=== PATIENT | male | born 1945 | race Caucasian/White ===

== ENCOUNTER 2023-04-13 11:10 | Emergency (ER) | payer MEDICARE, OTHER, SELFPAY ==
[2023-04-13 11:15] VITALS: BP 129/90; PULSE 74; RESP 18; TEMP 36.5; O2SAT 97; BMI 28.3
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
== END 2023-04-13 11:44 | disposition home or self-care (01) ==
PROVIDERS: Emergency Provider Emergency Medicine; PCP Family Medicine
DX: R21 Rash and other nonspecific skin eruption (principal); Z79.82 Long term (current) use of aspirin; Z79.899 Other long term (current) drug therapy; F17.210 Nicotine dependence, cigarettes, uncomplicated
CPT/HCPCS: 99283

== ENCOUNTER 2023-07-26 11:45 | Emergency (ER) | payer MEDICARE, OTHER, SELFPAY ==
[2023-07-26 11:51] VITALS: BP 120/91; PULSE 82; RESP 16; TEMP 36.5; O2SAT 99; BMI 29.5
--- OUTSIDE RECORDS SUMMARY | 2023-07-26 11:52 | XMS_ITS | CCD ---
Author Name Unknown Address [address] [place] [address] Organization [facility] Care Team Providers Care Emergency Medcl Emt Name Role Phone Stanley Emerson Unavailable Unavailable Unavailable STANLEY EMERSON Primary Care Physician Unavail able MD Stanley Emerson Primary Care Provider MD Taz Barnes Admit Provider MD Margarito Valentine Other Provider MD Janice Gonzalez Other Provider DO Bernabe Cr Attending Provider MD Margarito Valentine Attending Provider [phone] MD Margarito Valentine Admit Provider Celia Ramos Unavailable Margarito Valentine Unavailable [phone] MOMO Schwab Attending Provider MD Stanley Emerson Primary Care Provider MD Taz Barnes Admit Provider MD Margarito Valentine Other Provider MD Janice Gonzalez Other Provider DO Bernabe Cr Attending Provider MD Margarito Valentine Attending Provider [phone] MD Margarito Valentine Admit Provider [phone] MOMO Schwab Attending Provider Titijazmyne Carlene Unavailable HEMEYER ., DR PETERSON Primary Care Unavailable SAMUELS ., DR MONTALVO Admitting Unavailable SAMUELS ., DR MONTALVO Attending Unavailable SAMUELS ., DR MONTALVO Consulting Unavailable Le, Corky Consulting Unavailable HEMEYER ., DR PETERSON Primary Care Unavailable SAMUELS ., DR MONTALVO Admitting Unavailable SAMUELS ., DR MONTALVO Attending Unavailable SAMUELS ., DR MONTALVO Consulting Unavailable LOAN, JAZZY Consulting Unavailable SURY II, ARCADIO Consulting Unavailable HEMEYER ., DR PETERSON Primary Care Unavailable BAKHOUS, AZIZ Admitting Unavailable BAKHOUS, AZIZ Attending Unavailable BAKHOUS, AZIZ Consulting Unavailable HEMEYER ., DR PETERSON Primary Care Unavailable BAKHOUS, AZIZ Admitting Unavailable BAKHOUS, AZIZ Attending Unavailable BAKHOUS, AZIZ Consulting Unavailable HEMEYER ., DR PETERSON Primary Care Unavailable HEMEYER ., DR PETERSON Attending Unavailable HEMEYER ., DR PETERSON Admvandana Unavailable HEMEYER ., DR PETERSON Consulting Unavailable ZIEBER, DR LORENZO Hall Consulting Unavailable HEMEYER ., DR PETERSON Primary Care Unavailable VANDA ., MARILYN Admitting Unavailable VANDA ., MARILYN Attending Unavailable VANDA ., MARILYN Consulting Unavailable HEMEYER ., DR PETERSON Primary Care Unavailable HAY ., DR GALEANO Admitting Unavailable HAY ., DR GALEANO Attending Unavailable HAY ., DR GALEANO Consulting Unavailable HEMEYER ., DR PETERSON Primary Care Unavailable ZIEBER, DR LORENZO Hall Consulting Unavailable HAY ., DR GALEANO Admitting Unavailable HAY ., DR GALEANO Attending Unavailable HAY ., DR GALEANO Consulting Unavailable Stokes, Dr. Teo Poon Attending Araceli vailable Hemeyer, Dr. Stanley Mercado Primary Care Unava ilable Hemeyer, Dr. Stanley Mercado Primary Care Unava ilable Hemeyer, Dr. Stanley Mercado Primary Care Unava ilable Stokes, Dr. Teo Poon Attending Araceli vailable Stokes, Dr. Teo Poon Referring Araceli vailable Hemeyer, Dr. Stanley Mercado Primary Care Unava ilable Hemeyer, Dr. Stanley Mercado Primary Care Unava ilable Stokes, Dr. Teo Poon Referring Araceli vailable Stokes, Dr. Teo Poon Attending Araceli vailable Stokes, Dr. Teo Poon Attending Araceli vailable Hemeyer, Dr. Stanley Mercado Primary Care Elliot Emerson, Dr. Stanley Mercado Primary Care Elliot Stokes, Dr. Teo Poon Attending Araceli romy Stokes, Dr. Teo Poon Attending Araceli Emerson, Dr. Stanley Mercado Primary Care MD Stanley Little Primary Care Provider MD Celia Ramos Attending Provider MD Teo Stokes Referring Provider STANLEY EMERSON Attending Unavailable IDANIA, STANLEY Rich Attending Unavailable SAMUELS, KATIA R Referring Unavailable SAMUELS, Katia R Attending Unavailable SAMUELS, Katia R Attending Unavailable SAMUELS, Katia R Referring Unavailable SAMUELS, Katia R Admitting Unavailable SAMUELS, Katia R Attending Unavailable SAMUELS, Katia R Referring Unavailable SAMUELS, Katia R Admitting Unavailable SAMUELS, Katia R Attending Unavailable SAMUELS, Kaita R Admitting Unavailable SAMUELS, Katia R Attending Unavailable SAMUELS, Katia R Admitting Unavailable SAMUELS, Katia R Attending Unavailable SAMUELS, Katia R Attending Unavailable SAMUELS, Katia R Attending Unavailable SAMUELS, Katia R Attending Unavailable SAMUELS, Katia R Attending Unavailable SAMUELS, Katia R Attending Unavailable SAMUELS, Katia R Attending Unavailable SAMUELS, Katia R Attending Unavailable Stokes, Teo Referring Unavailable Bakhous, Celia Admitting Unavailable Bakhous, Celia Attending Unavailable Stanley Emerson Primary Care Unavailable Stanley Emerson Primary Care Unavailable Heather Schwab Admitting Unavailable Heather Schwab Attending Unavailable Stanley Emerson Primary Care Unavailable Margarito Valentine Admitting UnavailMargarito Lara Attending Unavailabl e Allergies Allergy Classification Reported Allergen(s) Allergy Type Date of Onset Reaction(s) Facility (1 source) No Known Medication Allergies; Translations: [No Known Medication Allergies] Propensity to adverse reactions (disorder) [facility] Repository Medications Current Medications Medication Drug Class(es) Dates Sig (Normalized) Sig (Original) 8 hr acetaminophen 650 mg extended release oral tablet (3 sources) take 2 tablets by mouth every eight hours Acetaminophen ER 650 MG 2 tablets as needed Orally every 8 hrs Active acetaminophen 325 mg / HYDROcodone bitartrate 7.5 mg oral tablet (2 sources) Opioid Agonist Start: 05-06-2023 take 1 tablet by mouth once, then take 1 tablet by mouth every hour [place] 325 mg-7.5 mg oral tablet 1 tab(s), Oral, Once, 1 tab(s), Refill(s) 0, Take 1 hour prior to procedure, [facility]/pharmacy #[id number], 187, cm, 03/11/23 13:44:00 EDT, Height/Length Dosing, 93, kg, 03/11/23 13:44:00 EDT, Weight Dosing Start Date: 05/06/23 Status: Ordered Albuterol (Eqv-ProAir HFA) 90 mcg/inh inhalation aerosol (12 sources) Start: 06-10-2022 Albuterol (Eqv-ProAir HFA) 90 mcg/inh inhalation aerosol Refill(s) 0 Start Date: 06/10/22 Status: Ordered amLODIPine 5 mg oral tablet (6 sources) Dihydropyridine Calcium Channel Alfredito Start: 06-10-2023 take 5 mg by mouth twice daily amlodipine 5 mg, Oral, BID, Refills(s) 0 Start Date: 06/10/23 Status: Ordered Start: 04-15-2023 take 1 tablet by charlene th every twelve hours Norvasc 5 MG 1 tablet Orally bid for 90 days Mar, Active Start: 04-15-2023 take 1 tablet by charlene th every twenty-four hours Norvasc 5 MG 1 tablet Orally Once a day for 90 days Mar, Active ferrous sulfate 325 mg oral tablet (4 sources) take 1 tablet by charlene th every twenty-four hours Ferrous Sulfate 325 (65 Fe) MG 1 tablet Orally once a day Active folic acid 1 mg oral tablet (14 sources) Start: 05-22-2022 folic acid 1 mg Tab Refills(s) 0 Start Date: 06/10/22 Status: Ordered Start: 05-22-2022 End: 06-21-2022 take 1000 ug by mouth once daily at bedtime Folic Acid Active 1000 MCG PO Daily at bedtime June 21, 2022 10:02am Metoprolol (20 sources) beta-Adrenergic Alfredito Start: 06-10-2022 Metopr olol tartrate 50 mg Tab Refills(s) 0 Start Date: 06/10/22 Status: Ordered Start: 05-16-2022 take 50 mg by mouth twice kellen y Metoprolol Tartrate Active 50 MG PO Twice daily May 16, 2022 12:00am Multivitamin preparation (17 sources) Start: 07-31-2022 multivitamin D aily, Refill(s) 0 Start Date: 07/31/22 Status: Ordered Multivitamin Act raji 24 hr oxybutynin chloride 10 mg extended release oral tablet (1 source) Cholinergic Muscarinic Antagonist Start: 06-11-2023 take 1 tablet by mouth once daily oxybutynin 10 mg ER Tab 10 mg = 1 tab(s), Oral, Daily, # 14 tab(s), Refills(s) 0, Pharmacy: [facility]/pharmacy #[id number], 187, cm, 06/10/23 13:43:00 EST, Height/Length Dosing, 93, kg, 03/11/23 13:44:00 EDT, Weight Dosing Start Date: 06/11/23 Status: Ordered predniSONE 10 mg oral tablet (3 sources) predniSONE 10 MG as directed Orally take 4 tablets daily x3 days, take 3 tablets for 3 days, 2 tablets for 3 days, 1 tablet for 3 days Active simvastatin 20 mg oral tablet (20 sources) HMG-CoA Reductase Inhibitor Start: 05-16-2022 simvastatin 20 mg Tab Refills(s) 0 Start Date: 06/10/22 Status: Ordered vitamin b12 1 mg oral capsule (13 sources) Vitamin B12 Start: 05-22-2022 End: 06-21-2022 take 1000 ug by mouth once daily at bedtime Cyanocobalamin (Vitamin B-12) Active 1000 MCG PO Daily at bedtime June 21, 2022 10:02am Cyanocobalamin 1 000 MCG as directed Orally Active take 1 tablet by mouth once kellen y B-12 1000 MCG Oral Tablet TAKE 1 TABLET DAILY DIRECTED. Quantity: 0 Refills: 0 Ordered: 03-Jun-2022 DO Active Completed/Discontinued Medications Medication Drug Class(es) Dates Sig (Normalized) Sig (Original) [id number] 200 actuat albuterol 0.09 mg/actuat metered dose inhaler (16 sources) beta2-Adrenergic Agonist Start: 06-03-2022 Albuterol Sulfate HFA 108 (90 Base) MCG/ACT Inhalation Aerosol Solution Quantity: 54 Refills: 0 Ordered: 03-Jun-2022 DO Start : 03-Jun-2022 Active Start: 05-16-2022 take 1 puff(s) by in halation three times daily Albuterol Sulfate Active 2 PUFF INHALATION Three times daily May 16, 2022 12:00am take 2 puff(s) by in halation every four hours as needed Albuterol Sulfate HFA 108 (90 Base) MCG/ACT 2 puffs as needed Inhalation every 4 hrs Active take 2 puff(s) by in halation every four hours as needed Albuterol Sulfate HFA 108 (90 Base) MCG/ACT 2 puffs as needed Inhalation every 4 hrs Active take 2 puff(s) by in halation every four hours as needed Albuterol Sulfate HFA 108 (90 Base) MCG/ACT Inhalation Aerosol Solution INHALE 2 PUFFS EVERY 4 HOURS NEEDED Quantity: 1 Refills: 0 Ordered: 22-Jan-2023 DO Active aspirin 81 mg delayed release oral tablet (9 sources) Platelet Aggregation Inhibitor, Nonsteroidal Anti-inflammatory Drug Start: 01-22-2023 take 1 tablet by mouth once daily Aspirin 81 MG Oral Tablet Delayed Release TAKE 1 TABLET DAILY. Quantity: 90 Refills: 3 Ordered: 22-Jan-2023 Teo Stokes MD Start : 22-Jan-2023 Active Start: 05-16-2022 End: 06-21-2022 take 81 mg by mouth once daily Aspirin Discontinued 81 MG PO Daily May 16, 2022 12:00am June 21, 2022 10:01am ciprofloxacin 250 mg oral tablet (6 sources) Quinolone Antimicrobial Start: 12-03-2022 take 1 tablet by mouth once daily Cipro 250 mg Tab 250 mg = 1 tab(s), Oral, Daily, Take 1 tablet the day before the procedure and 1 tablet after the procedure, # 6 tab(s), Refills(s) 0, Pharmacy: [facility]/pharmacy #[id number], 187, cm, 09/18/22 14:39:00 EDT, Height/Length Dosing, 93, kg, 09/18/22 14:39:00 EDT, Weight Dosing Start Date: 12/03/22 Status: Ordered Start: 07-25-2022 take 1 tablet by charlene th once daily Cipro 250 mg Tab 250 mg = 1 tab(s), Oral, Daily, Take 1 tablet the day before the procedure and 1 tablet after the procedure, # 2 tab(s), Refills(s) 0, Pharmacy: [facility]/pharmacy #[id number], 187, cm, 06/11/22 9:11:00 EST, Height/Length Dosing, 93.5, kg, 06/11/22 9:11:00 EST, W... Start Date: 07/25/22 Status: Ordered Multi Vitamin Oral Tablet (1 source) take 1 tablet by charlene th once daily Multi Vitamin Oral Tablet TAKE 1 TABLET DAILY. Quantity: 0 Refills: 0 Ordered: 22-Jan-2023 DO Active Problems Active Problems Problem Classification Problem Date Documented Da te Episodic/Chronic Aortic; peripheral; and visceral artery aneurysms (20 sources) Abdominal aortic aneurysm; Translations: [Abdominal aneurysm without mention of rupture] Onset: 05-16-2022 Chronic Calculus of urinary tract (18 sources) Urinary bladder stone; Translations: [Calculus in bladder] Onset: 06-11-2022 Episodic Cancer of bladder (13 sources) Malignant tumor of urinary bladder; Translations: [Malignant neoplasm of bladder, unspecified] Onset: 09-18-2022 Chronic Cancer of bladder (3 sources) History of malignant neoplasm of bladder; Translations: [Personal history of malignant neoplasm of bladder] Onset: 12-10-2022 Episodic Cancer; other and unspecified primary (8 sources) H/O: malignant neoplasm 12-10-2022 Episodic Chronic kidney disease (10 sources) Chronic kidney disease stage 3B ; Translations: [Chronic kidney disease, stage 3b] Onset: 09-04-2022 Chronic Chronic kidney disease (4 sources) Chronic kidney disease; Translations: [CHRONIC KIDNEY DISEASE STAGE 3B] Onset: 09-10-2022 Chronic obstructive pulmonary disease and bronchiectasis (11 sources) Pulmonary emphysema; Translations: [Simple chronic bronchitis] Onset: 09-23-2022 09-11-2022 Chronic Complication of device; implant or graft (1 source) Other mechanical complication of indwelling urethral catheter, initial encounter; Translations: [OTH MECH CMP INDWELL URETH CATH INT] Onset: 09-16-2022 Episodic Delirium, dementia, and amnestic and other cognitive disorders (20 sources) Dementia; Translations: [Unspecified dementia without behavioral disturbance] Onset: 06-11-2022 Chronic Disorders of lipid metabolism (20 sources) Dyslipidemia; Translations: [Other and unspecified hyperlipidemia] Onset: 09-23-2022 Chronic Essential hypertension (19 sources) Hypertensive disorder; Translations: [Unspecified essential hypertension] Onset: 09-23-2022 09-11-2022 Chronic Genitourinary symptoms and ill-defined conditions (20 sources) Retention of urine; Translations: [Retention of urine, unspecified] Onset: 06-10-2022 Episodic Hyperplasia of prostate (12 sources) Benign prostatic hypertrophy with outflow obstruction; Translations: [Benign prostatic hyperplasia with lower urinary tract symptoms] Onset: 12-10-2022 Chronic Hypertension with complications and secondary hypertension (1 source) Hypertensive chronic kidney disease with stage 1 through stage 4 chronic kidney disease, or unspecified chronic kidney disease; Translations: [HTN CKD W/STAGE 1-4 CKD/UNS CKD] Onset: 09-08-2022 Chronic Late effects of cerebrovascular disease (1 source) Other sequelae following unspecified cerebrovascular disease; Translations: [OTH SEQUELAE UNS CEREBROVASCULAR DZ] Onset: 09-23-2022 Chronic Neoplasms of unspecified nature or uncertain behavior (4 sources) Neoplasm of unspecified behavior of bladder; Translations: [NEOPLASM UNS BEHAVIOR OF BLADDER] Onset: 09-08-2022 Episodic Nutritional deficiencies (19 sources) Cobalamin deficiency; Translations: [Deficiency of other specified B group vitamins] 05-22-2022 Episodic Other aftercare (1 source) Other prison (current) drug therapy; Translations: [OTH [facility] CURRENT DRUG THERAPY] Onset: 09-23-2022 Episodic Other aftercare (1 source) detention (current) use of anticoagulants; Translations: [CONSTRUCTION REPRESENTATIVE CURRNT USE ANTICOAGULANTS] Onset: 09-08-2022 Episodic Other and ill-defined cerebrovascular disease (12 sources) Cerebral ischemia Onset: 05-16-2022 06-10-2022 Chronic Other circulatory disease (1 source) Personal history of other diseases of the circulatory system Episodic Other circulatory disease (1 source) Personal history of transient ischemic attack (TIA), and cerebral infarction without residual deficits; Translations: [PERS HX TIA AND CI NO RESID DEFICIT] Onset: 09-08-2022 Episodic Other diseases of bladder and urethra (2 sources) Disorder of bladder; Translations: [Other specified disorders of bladder] Onset: 06-10-2022 Chronic Other diseases of bladder and urethra (17 sources) Mass of urinary bladder; Translations: [Other specified disorders of bladder] 06-10-2022 Chronic Other diseases of bladder and urethra (5 sources) Other specified disorders of bladder; Translations: [Other specified disorders of bladder] Onset: 07-24-2022 05-22-2022 Chronic Other diseases of bladder and urethra (11 sources) Lesion of bladder 07-31-2022 Chronic Other diseases of bladder and urethra (1 source) Diverticulum of bladder; Translations: [DIVERTICULUM OF BLADDER] Onset: 09-23-2022 Chronic Other diseases of bladder and urethra (1 source) Bladder disorder, unspecified; Translations: [BLADDER DISORDER UNSPECIFIED] Onset: 09-08-2022 Chronic Other diseases of kidney and ureters (14 sources) Hydroureter; Translations: [Hydroureter] Onset: 06-11-2022 Episodic Other diseases of kidney and ureters (2 sources) Disorder of kidney and/or ureter; Translations: [Disorder of kidney and ureter, unspecified] Onset: 06-11-2022 Episodic Other diseases of kidney and ureters (12 sources) Hydronephrosis 06-10-2022 Episodic Other diseases of kidney and ureters (12 sources) Kidney lesion 06-11-2022 Episodic Other diseases of kidney and ureters (5 sources) Bilateral hydronephrosis ; Translations: [Unspecified hydronephrosis] 05-22-2022 Episodic Other diseases of kidney and ureters (1 source) Urinary tract obstruction; Translations: [Other obstructive and reflux uropathy] Onset: 06-10-2023 Episodic Other diseases of veins and lymphatics (1 source) Venous insufficiency (chronic) (peripheral); Translations: [VENOUS INSUFF CHRONIC PERIPHERAL] Onset: 09-23-2022 Episodic Other gastrointestinal disorders (5 sources) Diarrhea; Translations: [Diarrhea, unspecified] 05-16-2022 Episodic Other nervous system disorders (5 sources) 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; Translations: [Circadian rhythm sleep disorder, unspecified type] 05-20-2022 Chronic Other nervous system disorders (5 sources) Metabolic encephalopathy; Translations: [Metabolic encephalopathy] 05-16-2022 Chronic Other nervous system disorders (4 sources) Metabolic encephalopathy; Translations: [Metabolic encephalopathy] 05-22-2022 Chronic Other nervous system disorders (4 sources) Circadian rhythm sleep disorder, unspecified type; Translations: [Disruption of 24 hour sleep wake cycle, unspecified] 05-22-2022 Chronic Other nervous system disorders (1 source) Unspecified disturbances of skin sensation; Translations: [UNS DISTURBANCES OF SKIN SENSATION] Onset: 09-23-2022 Episodic Other nutritional; endocrine; and metabolic disorders (1 source) Other obesity due to excess calories; Translations: [OTHER OBESITY D/T EXCESS CALORIES] Onset: 09-23-2022 Chronic Other nutritional; endocrine; and metabolic disorders (3 sources) Overweight in adulthood with body mass index of 25 or more but less than 30; Translations: [Overweight] Episodic Other nutritional; endocrine; and metabolic disorders (1 source) Body mass index (BMI) 26.0-26.9, adult; Translations: [BODY MASS INDEX BMI 26.0-26.9 ADULT] Onset: 09-23-2022 Episodic Residual codes; unclassified (5 sources) Tobacco user; Translations: [Tobacco use] 05-22-2022 Episodic Residual codes; unclassified (4 sources) Tobacco use; Translations: [Tobacco use disorder] 05-22-2022 Episodic Residual codes; unclassified (2 sources) Other specified postprocedural states; Translations: [OTH SPECIFIED POSTPROCEDURAL STATES] Onset: 09-16-2022 Episodic Screening and history of mental health and substance abuse codes (3 sources) Ex-smoker; Translations: [Personal history of tobacco use] Onset: 09-23-2022 Episodic Comment on above: 05/17/23 quit; Substance-related disorders (2 sources) Nicotine dependence, cigarettes, uncomplicated; Translations: [Smoker] Onset: 09-08-2022 Chronic Comment on above: 1/2 dozen cigarettes ; Transient cerebral ischemia (12 sources) Transient cerebral ischemia; Translations: [Unspecified transient cerebral ischemia] 05-16-2022 Chronic Unclassified (1 source) ABDOMINAL AA W/O RUPTURE UNSPCIFIED; Translations: [ABDOMINAL AA W/O RUPTURE UNSPCIFIED] Onset: 09-23-2022 Unclassified (1 source) CONTACT W/AND (SUSP) EXPOS COVID-19; Translations: [CONTACT W/AND (SUSP) EXPOS COVID-19] Onset: 05-22-2022 Unclassified (1 source) Abdominal aortic aneurysm, without rupture, unspecified; Translations: [Abdominal aortic aneurysm, without rupture, unspecified] Onset: 04-08-2023 Unclassified (1 source) Abdominal aortic aneurysm, without rupture, unspecified; Translations: [Abdominal aortic aneurysm, without rupture, unspecified] Onset: 08-16-2022 Urinary tract infections (10 sources) Urinary tract infectious disease; Translations: [Urinary tract infection, site not specified] Onset: 09-16-2022 05-16-2022 Episodic Viral infection (4 sources) COVID-19; Translations: [COVID-19] Onset: 01-04-2022 Past or Other Problems Problem Classification Problem Date Documented Da te Episodic/Chronic Acute and unspecified renal failure (20 sources) Acute renal failure syndrome; Translations: [Acute kidney failure, unspecified] Onset: 05-16-2022 Episodic Fluid and electrolyte disorders (20 sources) Hyperkalemia; Translations: [Metabolic acidosis] Onset: 05-16-2022 06-10-2022 Episodic Malaise and fatigue (4 sources) Other fatigue; Translations: [OTHER FATIGUE] Onset: 05-15-2022 Episodic Nausea and vomiting (1 source) Vomiting, unspecified; Translations: [VOMITING UNSPECIFIED] Onset: 05-23-2022 Episodic Other aftercare (1 source) detention (current) use of aspirin; Translations: [CONSTRUCTION REPRESENTATIVE 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] Onset: 05-22-2022 Episodic Other diseases of kidney and ureters (8 sources) Unspecified hydronephrosis; Translations: [Hydronephrosis] Onset: 09-10-2022 05-22-2022 Episodic Other gastrointestinal disorders (5 sources) Diarrhea, unspecified; Translations: [Diarrhea] Onset: 05-23-2022 05-22-2022 Episodic Other nutritional; endocrine; and metabolic disorders (1 source) Anorexia; Translations: [ANOREXIA] Onset: 05-23-2022 Episodic Other nutritional; endocrine; and metabolic disorders (1 source) Abnormal weight loss; Translations: [ABNORMAL WEIGHT LOSS] Onset: 05-23-2022 Episodic Other screening for suspected conditions (not mental disorders or infectious disease) (3 sources) Other specified abnormal findings of blood chemistry; Translations: [OTH SPEC ABNORMAL FINDINGS BLD CHEM] Onset: 05-16-2022 Episodic Residual codes; unclassified (1 source) Chills (without fever); Translations: [CHILLS WITHOUT FEVER] Onset: 05-23-2022 Episodic Unclassified (3 sources) Abdominal aortic aneurysm (AAA) without rupture, unspecified part I71.40 Unclassified (3 sources) Infrarenal abdominal aortic aneurysm (AAA) without rupture I71.43 Results Test Name Value Interpretation Reference Range Facility Physician Orderon 07-04-2023 Physician Order [id number] Normal [facility] Patient Educationon 06-30-19 Patient Education Urology Acute Urinary Retention, Male Acute urinary retention is a condition in which a person is unable to pass urine or can only pass a little urine. This condition can happen suddenly and last for a short time. If left untreated, it can become long-term (chronic) and result in kidney damage or other serious complications. What are the causes? This condition may be caused by: ? Obstruction or narrowing of the tube that drains the bladder (urethra). This may be caused by surgery, problems with nearby organs, or injury to the bladder or urethra. ? Problems with the nerves in the bladder. ? Tumors in the area of the pelvis, bladder, or urethra. ? Certain medicines. ? Bladder or urinary tract infection. ? Constipation. What increases the risk? This condition is more likely to develop in older men. As men age, their prostate may become larger and may start to press or squeeze on the bladder or the urethra. Other chronic health conditions can increase the risk of acute urinary retention. These include: ? Diseases such as multiple sclerosis. ? Spinal cord injuries. ? Diabetes. ? Degenerative cognitive conditions, such as delirium or dementia. ? Psychological conditions. A man may hold his urine due to trauma or because he does not want to use the bathroom. What are the signs or symptoms? Symptoms of this condition include: ? Trouble urinating. ? Pain in the lower abdomen. How is this diagnosed? This condition is diagnosed based on a physical exam and your medical history. You may also have other tests, including: ? An ultrasound of the bladder or kidneys or both. ? Blood tests. ? A urine analysis. ? Additional tests may be needed, such as a CT scan, MRI, and kidney or bladder function tests. How is this treated? Treatment for this condition may include: ? Medicines. ? Placing a thin, sterile tube (catheter) into the bladder to drain urine out of the body. This is called an indwelling urinary catheter. After it is inserted, the catheter is held in place with a small balloon that is filled with sterile water. Urine drains from the catheter into a collection bag outside of the body. ? Behavioral therapy. ? Treatment for other conditions. If needed, you may be treated in the hospital for kidney function problems or to manage other complications. Follow these instructions at home: Medicines ? Take lylg-xag-lahimxb and prescription medicines only as told by your health care provider. Avoid certain medicines, such as decongestants, antihistamines, and some prescription medicines. Do not take any medicine unless your health care provider approves. ? If you were prescribed an antibiotic medicine, take it as told by your health care provider. Do not stop using the antibiotic even if you start to feel better. General instructions ? Do not use any products that contain nicotine or tobacco. These products include cigarettes, chewing tobacco, and vaping devices, such as e-cigarettes. If you need help quitting, ask your health care provider. ? Drink enough fluid to keep your urine pale yellow. ? If you have an indwelling urinary catheter, follow the instructions from your health care provider. ? Monitor any changes in your symptoms. Tell your health care provider about any changes. ? If instructed, monitor your blood pressure at home. Report changes as told by your health care provider. ? Keep all follow-up visits. This is important. Contact a health care provider if: ? You have uncomfortable bladder contractions that you cannot control (spasms). ? You leak urine with the spasms. Get help right away if: ? You have chills or a fever. ? You have blood in your urine. ? You have a catheter and the following happens: ? Your catheter stops draining urine. ? Your catheter falls out. Summary ? Acute urinary retention is a condition in which a person is unable to pass urine or can only pass a little urine. If left untreated, this condition can result in kidney damage or other serious complications. ? An enlarged prostate may cause this condition. As men age, their prostate gland may become larger and may press or squeeze on the bladder or the urethra. ? Treatment for this condition may include medicines and placement of an indwelling urinary catheter. ? Monitor any changes in your symptoms. Tell your health care provider about any changes. This information is not intended to replace advice given to you by your health care provider. Make sure you discuss any questions you have with your health care provider. Document Revised: 01/31/2021 Document Reviewed: 01/31/2021 e27 Patient Education ? 2022 [employer]. Carmella Tanner [facility] Urology Office/Clinic Noteon 06-30-2023 Urology Office/Clinic Note Chief Complaint f/u to Rejalen HPI Staff F/u to Rezucésar done 06/10/23. Dx: hx of bladder cancer, urinary retention, BPH with urinary obstruction and dementia. Pt has an indwelling cath at this time. He had his catheter removed on 06/16/23 and after several hours came back to the office unable to urinate and PVR was 792ml so catheter was replaced. Pt does wish to do another voiding trial but would like to have the catheter removed on another day first thing in the morning so that if he has problems and has to have it replaced it can be done in office and he does not have to go to the ED. History of Present Illness Tests reviewed: reviewed FISH/cytology I have reviewed the previous health record information and history for this patient from Dr. Samuels. I have reviewed and verified the staff HPI to be accurate for this encounter. Review of Systems PHQ Score Initial Depression Screen Score: 0 SCORE ROS - Provider Constitutional: denies weight loss, denies hot flashes. Eyes: denies eye problems. Gastrointestinal: denies nausea, denies vomiting. Cardiovascular: denies chest pain or angina. Integumentary: no dryness Musculoskeletal: denies musculoskeletal symptoms. ENMT: denies otolaryngeal symptoms. Respiratory: no shortness of breath. Heme/Lymph: denies easy bleeding tendency, denies easy bruising tendency. Psychiatric: no confusion, no anxiety. Genitourinary: See HPI. Physical Exam Vitals & Measurements HR: 70(Peripheral) RR: 16 BP: 109/77 HT: 74 in HT: 187 cm WT: 93 kg WT: 204.6 lb BMI: 26.59 General Appearance: alert, no distress, well nourished, well developed male. Genitourinary: normal scrotum, normal testes, normal urethra, normal epididymis, normal vas deferens/spermatic cord. Flank Pain: none. Bladder: nonpalpable. Assessment/Plan Pt here today with his . 1. History of bladder cancer (Z85.51: Personal history of malignant neoplasm of bladder) CT AP wo con 05/16/22 - 2.3 x 2.3 x 1.9 cm hyperdense mass adjacent to the left lateral anterior wall and roof of the bladder. Cysto 07/31/22 - Left back wall there is a 2-3 cm papillary TCC lesion over a tic. S/P First TURBT/extraction of 2 bladder calculi 09/12/22 - Path shows noninvasive papillary urothelial carcinoma, low grade. Invasion is not recognized. A small fragment of detrusor muscle is present in the specimen. Cysto 12/10/22 - no bladder tumor recurrence Most recent Cysto/FISH/Cytol 06/10/23 - neg 2. Urinary retention (R33.9: Retention of urine, unspecified) [facility] ER on 09/15/22 due to catheter clogged. Pt was diagnosed w/ UTI and treated w/ Cipro 500 mg BID for x 7 days. Attempted urocuff, pt was unable to void, PVR 348 cc, cath placed 10/04/22. S/p Rezum 06/10/23. Catheter removal IO 06/16/23, came back to the office several hours later due to being unable to urinate and PVR was 792mL so catheter was replaced. Pt still has catheter in place. Does not want it removed today. Discussed pt to get catheter removed tomorrow IO and if unable to void, pt/ to learn CIC. 3. BPH with urinary obstruction (N40.1: Benign prostatic hyperplasia with lower urinary tract symptoms) Cysto 07/31/22 - Trilobar obstruction. Severe trabeculation, deep diverticuli diffusely. Not currently taking any BPH meds. No sample provided for UA today, pt has catheter. Follow-up With When Contact Information ARLENE CASILLAS, Katia Hall, [facility] [address], [place] [address]- [phone] Additional Instructions: 1 day for catheter removal Patient Education Acute Urinary Retention, Male I, Apple Escoto, personally scribed for Dr. Samuels on 06/30/2023 14:30:01. . Documentation recorded by the scribe, Apple Escoto, accurately reflects the services(s) I performed and decisions made by me. Authenticated by Dr. Samuels on 06/30/2023 14:32:21. Problem List/Past Medical History Ongoing Abdominal aortic aneurysm Acute kidney failure Bladder cancer Bladder mass Bladder stones BPH with urinary obstruction COPD with emphysema Dementia History of bladder cancer Hydronephrosis Hydroureter Hyperkalemia Hyperlipidemia Hypertension Lesion of bladder Renal lesion Transient cerebral ischemic attack Urinary retention Historical No qualifying data Procedure/Surgical History Cystoscope (03/11/2023), TURBT - Transurethral resection of bladder tumor (09/12/2022), Cystoscopy (07/31/2022). Medications Albuterol (Eqv-ProAir HFA) 90 mcg/inh inhalation aerosol amlodipine, 5 mg, Oral, BID Metoprolol tartrate 50 mg Tab multivitamin, Daily oxybutynin 10 mg ER Tab, 10 mg= 1 tab(s), Oral, Daily, Not taking: Pt stopped taking due to having hallucinations with it. simvastatin 20 mg Tab Allergies No Known Medication Allergies Social History Tobacco 10 or more cigarettes (1/2 pack or more)/day in last 30 days Tobacco Use:. Never Smokeless Tobacco Use:. Cigarettes, (more content not included)... Normal [facility] Comment on above: Result Comment: Elec tronically Signed By: Katia SAMUELS MD\.br\Date and Time Signed: 06/30/23 14:32 EST\.br\Electronically Co-Signed By: Apple Escoto\.br\Date and Time Co-Signed: 06/30/23 14:30 EST [facility] Fish and Urine Cyt o ([facility])on 06-26-2023 [facility] Revision Information Invalid Interpretation Code [facility] Comment on above: Result Comment: Brayan ection Reason -[ Fredi Stephen, 06/26/23 - 10:32 ] Corrected report issued to update PMS/PWS. The diagnosis remains unchanged. Correction Notes - Performed By: #### 1 [id number] ####[facility] [id number] [place] [address] Ambulatory Visit Summaryon 0 06-16-2023 Ambulatory Visit Summary ALEX ANDERSON :1945 Visit Date:06/16/2023 Ambulatory Visit Instructions Your Diagnosis BPH with urinary obstruction Your Care Team Attending Physician - ARLENE CASILLAS, Katia Hall Primary Care Physician - IDANIA CASILLAS, STANLEY Rich This Is Your Medications List acetaminophen-hydrocodone ([place] 325 mg-7.5 mg oral tablet) albuterol (Albuterol (Eqv-ProAir HFA) 90 mcg/inh inhalation aerosol) amlodipine metoprolol (Metoprolol tartrate 50 mg Tab) multivitamin oxybutynin (oxybutynin 10 mg ER Tab) simvastatin (simvastatin 20 mg Tab) Procedures Performed Cystoscope (03/11/2023), TURBT - Transurethral resection of bladder tumor (09/12/2022), Cystoscopy (07/31/2022). What to do next Scheduled Follow-Up Appointments Friday 1:30 PM EST With: ARLENE CASILLAS, Katia Hall Where: [facility] Reminderson 06-12-2023 Reminders - From: Dana Rivas To: [facility] - Recalls Arlene; Sent: 09/18/2022 15:49:30 EDT Show up: 01/24/2023 15:49:00 EDT Subject: Cysto/FISH/cytol Due Date/Time: 02/10/2023 15:49:00 EDT Reminder/Recall Patient needs scheduled for 3 mo Cysto/FISH/cytol (bt ck) in Feb 2023 Patient sched for 03/11/23 in [facility]. Pt will be due in May 2023.LG Patient had cysto/Rezum on 06/10/23. He will be due in August 2023.LG [facility] Consent for Procedure/Surger yon 06-10-2023 Consent for Procedure/Surgery [id number]#[id number] [facility] Consent for Treatmenton 05-26 Consent for Treatment [id number]#1.00TIFF [facility] IntraOperative Documentson 0 06-10-2023 IntraOperative Documents [id number] Normal [facility] Main OR Intraoperative Recor don 06-10-2023 Main OR Intraoperative Record IntraOp Document Type FTURO Summary Primary Physician: Katia SAMUELS MD Finalized Date/Time: 06/10/23 15:18:46 Pt. Name: ANDERSONALEX./Sex: 1945 Male Med Rec #: [id number] Physician: Katia SAMUELS MD Financial #: [id number] Pt. Type: O Room/Bed: / Admit/Disch: 06/10/23 12:50:19 - Institution: Case Times FTURO Entry 1 Patient Times In Room 06/10/23 14:32:00 Out Room 06/10/23 15:13:00 Procedure Times Start 06/10/23 14:40:00 Stop 06/10/23 15:07:00 Anesthesia Times Last Modified By: Clifford CHAN, KATEOR, Gayatri 06/10/23 15:07:12 Case Attendance FTURO Entry 1 Entry 2 Entry 3 Case Attendee Katia SAMUELS MD RN, CNOR, Kathleen Lai Role Performed Surgeon - Primary Conservation Enforcement Officer - Primary Scrub - Primary Time In 06/10/23 14:32:00 06/10/23 14:32:00 06/10/23 14:32:00 Time Out 06/10/23 15:13:00 06/10/23 15:13:00 06/10/23 15:13:00 Procedure CYSTOSCOPY LOCAL CYSTOSCOPY LOCAL CYSTOSCOPY LOCAL REZUM(.) REZUM(.) REZUM(.) Daisy piña bag sorter in room orienting Last Modified By: Clifford RN, CNOR, Clifford RN, CNOR, Clifford RN, KATEOR, Gayatri 06/10/23 Gayatri 06/10/23 Gayatri 06/10/23 15:07:13 15:07:13 15:07:13 Surgical Procedures FTURO Entry 1 Procedure Description Procedure CYSTOSCOPY LOCAL REZUM Modifiers . Surgeon Description cysto, REZUM treatment x 12 Primary Procedure Yes Primary Surgeon Katia SAMUELS MD Start 06/10/23 14:40:00 Stop 06/10/23 15:07:00 Anesthesia Type Local Surgical Service Urology Wound Class 2 - Clean-Contaminated Last Modified By: WOLFGANG Horton RN, Ruthann 06/10/23 15:07:15 General Comments: cath inserted 18fr coude General Case Data FTURO Pre-Care Text: Classifies surgical wound, implements aseptic technique, initiates traffic control Entry 1 Case Information OR URO 1 FT Case Level None Wound Class 2 - Clean-Contaminated Specialty Urology Preop Diagnosis HISTORY OF BLADDER Postop Same As Preop Yes CANCER, BPH WITH OBSTRUCTION Postop Diagnosis HISTORY OF BLADDER Outcomes Met? Yes CANCER, BPH WITH OBSTRUCTION Last Modified By: WOLFGANG Horton RN, Ruthann 06/10/23 13:11:24 Post-Care Text: The patient is free from signs and symptoms of infection EU IntraOp - FTURO Pre-Care Text: Implements protective measures prior to operative or invasive procedure, confirms identity before the operative or invasive procedure, verifies operative procedure, surgical site, and laterality Entry 1 EU Perioperative Protocols Procedure(s) CYSTOSCOPY LOCAL Patient Identity Birthday, ID Band REZUM(.) Verified (select at Check, Patient least 2): Participation Consents / H and P HandP, Surgery/Procedure Operative Site N/A Verified Consent Marking Verified Surgical Site Yes Laterality Verified n/a Verified Procedure Verified Yes Correct Patient Yes Position Verified Availability Equipment, Medication Time Out Katia SAMUELS MD, Verified (If Participants Clifford CHAN, KATEOR, Applicable) Ming Mendieta Jessica D Time Out Complete 06/10/23 14:32:00 Allergies Reviewed? Yes Allergies Reviewed Self/Patient With Body Position Low Lithotomy Prep Area penis Prep Agents Betadine Solution Skin. Condition Unable to Visualize Additional FISH Specimens Comment came from zapien Specimens Collected Vitals - EU Blood Pressure 119/79 Pulse 72 bpm Respirations 18 br/min SPO2 92 % EBL 0 IandO - EU Total Intake 0 mL Total Output 0 mL Outcomes Met? Yes Last Modified By: WOLFGANG Horton RN, Ruthann 06/10/23 14:52:38 Post-Care Text: The patient is free from signs and symptoms of injury caused by extraneous objects Sign Out FTURO Entry 1 Before Patient Leaves OR Nurse verbally Yes Nurse verbally n/a confirms with the confirms with the team the name of team that the procedure(s) instrument, sponge, recorded and needle counts are correct (or N/A) Nurse verbally Yes Nurse verbally n/a confirms with the confirms with the team how the team whether there specimen is labeled are any equipment (including patient problems to be name), if applicable addressed Sign Out Complete 06/10/23 15:10:00 Last Modified By: WOLFGANG Horton RN, Ruthann 06/10/23 15:07:43 Case Comments Finalized By: WOLFGANG Horton RN, Ruthann Document Signatures Signed By: WOLFGANG Horton RN, Ruthann 06/10/23 15:17 WOLFGANG Horton RN, Ruthann 06/10/23 15:07 WOLFGANG Horton RN, Ruthann 06/10/23 15:18 Normal [facility] Main OR Preoperative Recordo n 06-10-2023 Main OR Preoperative Record Holding Area Document Type FTURO Summary Primary Physician: Katia SAMUELS MD Finalized Date/Time: 06/10/23 14:49:26 Pt. Name: ALEX ANDERSON/Sex: 1945 Male Med Rec #: [id number] Physician: Katia SAMUELS MD Financial #: [id number] Pt. Type: O Room/Bed: / Admit/Disch: 06/10/23 12:50:19 - Institution: Case Times Holding FTURO Pre-Care Text: Verifies consent for planned procedure, identifies individual values and wishes concerning care, includes family members in perioperative teaching Secures patient's records' belongings, and valuables, maintains patient's dignity and privacy, and maintains patient confidentiality Entry 1 In Holding 06/10/23 13:39:00 Outcomes Met? Yes Last Modified By: Dayanara Neal RN 06/10/23 13:39:14 Post-Care Text: The patient participates in decisions affecting his or her perioperative plan of care The patient's right to privacy is maintained Surgery Checklist FTURO Entry 1 Patient Birthday, ID Band Procedure History and Physical, Identification: Check, Patient Verification: Surgical Consent, With Participation Patient NPO after Midnight: n/a Personal Items: Cataract Lens Implant, Glasses Personal Items GLASSES; BILATERAL Limitations: UP AD JOSIAH. PT [place] Comment: CATARACT LENS IMPLANTS Complaints of Pain: No Pain Comment: 0/10 Skin Integrity Dry, Warm Vitals - EU Blood Pressure 119/79 Pulse 72 bpm Respirations 16 br/min SPO2 92 % Additional None RN Reviewed Yes Specimens Collected Last Modified By: Dayanara Neal RN 06/10/23 13:41:12 Finalized By: WOLFGANG Horton RN, Ruthann Document Signatures Signed By: Dayanara Neal RN 06/10/23 13:41 WOLFGANG Horton RN, Ruthann 06/10/23 14:49 Normal [facility] Operative Reporton Operative Report Patient: MELISSA ANDERSON Age: 77 years Sex: Male : 1945 Associated Diagnoses: None Author: Katia SAMUELS MD Procedure Operative Information Details: Date/ Time: 06/10/2023 15:21:00. Pre-Op Dx: BPH w/ LUTS - N40.1, Urinary Retention - R33.8. Post-Op Dx: Same. Anesthesia Type: Local. Procedure: REZUM ablation of the prostate. Complications: None. Risks/Benefits/Informed Consent: Surgical risks, benefits, details of the procedure have been explained to the patient, Full informed consent has been obtained. Indications: The patient has BPH with LUTS and presents for the REZUM trans-urethral water vapor ablation of the prostate, He understands the risks, benefits, details of this procedure including but not limited to bleeding, infection, continued difficulties urinating, blood in the semen, pain during urination, increased urinary frequency, Despite these risks, among others, he wishes to proceed. Intraoperative Information Prepped: The patient is brought back to the operative suite, The patient is placed in the supine position, 10 cc of 2% viscous Xylocaine jelly prior to the catheterization, The bladder is catheterized with a 16 Fr straight catheter, 60 cc of 1% xylocaine solution is instilled followed by 10 cc of 2% viscous Xylocaine jelly, After waiting approximately 20 minutes, he is positioned in the modified dorso-lithotomy position and prepped in the usual fashion, The 30-degree cystoscope lens is placed, The anterior urethra, membranous urethra, and prostatic urethra is visualized. Procedure: The bladder demonstrates no tumor or stones, 15 targeted treatments were delivered to the prostate, staying at least 1 cm from the bladder neck, Each location is treated for 9 seconds, per protocol, 12 treatments were given into the lateral lobes by 1 cm, 3 treatments administered to the median lobe, The bladder is again inspected and is free of injury and is clear of blood clots, A Zapien catheter is placed, the balloon inflated, and leg bag attached. Specimens Removed: None. Devices Implanted: None. Postoperative Information Discharge: The patient tolerates the procedure well and is discharged home in satisfactory condition, Discharge instructions are provided. Normal [facility] Comment on above: Result Comment: Elec tronically Signed By: Katia SAMUELS MD.br\Date and Time Signed: 06/10/23 15:21 EST Operative Report Patient: MELISSA ANDERSON Age: 77 years Sex: Male : 1945 Associated Diagnoses: None Author: Katia SAMUELS MD Procedure Operative Information Details: Date/ Time: 06/10/2023 15:19:00. Pre-Op Dx: Hx of Bladder CA - Z85.51. Post-Op Dx: Same. Anesthesia Type: Local. Procedure: Local Cystoscopy. Complications: None. Risks/Benefits/Informed Consent: Surgical risks, benefits, details of the procedure have been explained to the patient, Full informed consent has been obtained. Intraoperative Information Prepped: Patient is brought back to the endoscopy suite, Patient is placed in supine position, Patient prepped in the usual fashion with Betadine solution, 2% Xylocaine Jelly is placed per Urethra, After waiting several minutes the Cystoscope is introduced. The Urethra is: Normal. The Prostatic Urethra is: Obstructed. The Bladder is: Abnormal, Trabeculated (Severe (3), deep tics. no b.t. clots were irrigated with jamal syringe.). The ureteral orifices: Show efflux of clear urine. Devices Implanted: None. Removal: Cystoscope is removed, The patient tolerated it well. Postoperative Information Discharge: Patient is discharged home with antibiotic coverage, Follow up arranged. Normal [facility] Comment on above: Result Comment: Elec tronically Signed By: Katia SAMUELS MD.br\Date and Time Signed: 06/10/23 15:20 EST [facility] Fish and Urine Cyt o ([facility])on 06-10-2023 [facility] Method of Extraction Catheterized Normal [facility] Comment on above: Performed By: #### 1 [id number] ####[facility] [id number] [place] [address] [facility] Number of Jars 1 Invalid Interpretation Code [facility] Comment on above: Performed By: #### 1 [id number] ####[facility] [id number] [place] [address] [facility] Specimen Urine Normal [facility] Comment on above: Performed By: #### 1 [id number] ####[facility] [id number] [place] [address] [facility] Type of Service Technical Only Normal [facility] Comment on above: Performed By: #### 1 [id number] ####[facility] [id number] [place] [address] Alanine aminotransferase [En zymatic activity/volume] in Serum or PlasmaOrdered By: Celia Ramos on 04-08-2023 ALT [Catalytic activity/Vol] 17 U/L 7-52 [facility] Albumin [Mass/volume] in Ser um or Plasma by Bromocresol green (BCG) dye binding methoOrdered By: Celia Ramos on 04-08-2023 Albumin BCG dye [Mass/Vol] 4.2 g/dL 3.5-5.7 [facility] Alkaline phosphatase [Enzyma tic activity/volume] in Serum or PlasmaOrdered By: Celia Ramos on 04-08-2023 ALP [Catalytic activity/Vol] 72 U/L 34-104 [facility] Aspartate aminotransferase [ Enzymatic activity/volume] in Serum or PlasmaOrdered By: Celia Ramos on 04-08-2023 AST [Catalytic activity/Vol] 16 U/L 13-39 [facility] Automated erythrocytes count in urine sediment (number/area)Ordered By: Celia Ramos on 04-08-2023 RBC Auto (Urine sed) [#/Area] 3-4 [HPF] 0-4 [facility] Automated leukocytes count i n urine sediment (number/area)Ordered By: Celia Ramos on 04-08-2023 WBC Auto (Urine sed) [#/Area] 50-100 [HPF] 0-4 [facility] Bilirubin Test strip Ql (U)O rdered By: Celia Ramos on 04-08-2023 Bilirubin Ql (U) Negative Negative [facility] Bilirubin.total [Mass/volume ] in Serum or PlasmaOrdered By: Celia Ramos on 04-08-2023 Bilirubin [Mass/Vol] 0.5 mg/dL 0.3-1.0 [facility] Calcium [Mass/volume] in Ser um or PlasmaOrdered By: Celia Ramos on 04-08-2023 Calcium [Mass/Vol] 9.3 mg/dL 8.6-10.3 [facility] Carbon dioxide, total [Moles /volume] in Serum or PlasmaOrdered By: Celia Raoms on 04-08-2023 CO2 [Moles/Vol] 31.6 mmol/L 21.0-31.0 [facility] Chloride [Moles/volume] in S marium or PlasmaOrdered By: Celia Ramos on 04-08-2023 Chloride [Moles/Vol] 107 mmol/L 98-107 [facility] Cholesterol [Mass/volume] in Serum or PlasmaOrdered By: Teo Stokes on 04-08-2023 Cholesterol [Mass/Vol] 107 mg/dL 140-200 [facility] Comment on above: Chol less than 200 m g/dl low riskChol 201-239 mg/dl borderline riskChol 240 mg/dl and greater high risk Cholesterol in LDL Calc [Mas s/Vol]Ordered By: Teo Stokes on 04-08-2023 Cholesterol in LDL [Mass/Vol] 47 mg/dL 0-100 [facility] Comment on above: LDL ATP III CLASSIFI CATIONLDL less than 100 mg/dL OptimalLDL 100-129 mg/dL Near or above optimalLDL 130-159 mg/dL Borderline highLDL 160-189 mg/dL HighLDL greater than 189 mg/dL Very high Cholesterol in VLDL Calc [Ma ss/Vol]Ordered By: Teo Stokes on 04-08-2023 Cholesterol in VLDL [Mass/Vol] 26 mg/dL [facility] Color Auto (U)Ordered By: Jonh Ramos on 04-08-2023 Color (U) Yellow Yellow [facility] Comprehensive Metabolic Pane howard 04-08-2023 Albumin [Mass/Vol] 4.2 g/dL Normal 3.5-5.7 [facility] Comment on above: Order Comment: Reaso n for Exam Acute kidney injury;Chronic kidney disease, stage 3b;Bilater Performed By: #### V [id number], MANDI, B12, MG, PHOS, CMP, FOL, FE and TIBC, URIC #### [facility] [address] Albumin/Globulin [Mass ratio] 1.5 {ratio} Normal [facility] Comment on above: Order Comment: Reaso n for Exam Acute kidney injury;Chronic kidney disease, stage 3b;Bilater Performed By: #### V [id number], MANDI, B12, MG, PHOS, CMP, FOL, FE and TIBC, URIC #### [facility] [address] [id number] [facility] ALP [Catalytic activity/Vol] 72 U/L Normal 34-104 [facility] Comment on above: Order Comment: Reaso n for Exam Acute kidney injury;Chronic kidney disease, stage 3b;Bilater Performed By: #### V [id number], MANDI, B12, MG, PHOS, CMP, FOL, FE and TIBC, URIC #### [facility] [address] [id number] [facility] ALT [Catalytic activity/Vol] 17 U/L Normal 7-52 [facility] Comment on above: Order Comment: Reaso n for Exam Acute kidney injury;Chronic kidney disease, stage 3b;Bilater Performed By: #### V [id number], MANDI, B12, MG, PHOS, CMP, FOL, FE and TIBC, URIC #### [facility] [address] [id number] [facility] Anion gap [Moles/Vol] 8.9 mmol/L Normal 6.0-15.0 [facility] Comment on above: Order Comment: Reaso n for Exam Acute kidney injury;Chronic kidney disease, stage 3b;Bilater Performed By: #### V [id number], MANDI, B12, MG, PHOS, CMP, FOL, FE and TIBC, URIC #### [facility] [address] AST [Catalytic activity/Vol] 16 U/L Normal 13-39 [facility] Comment on above: Order Comment: Reaso n for Exam Acute kidney injury;Chronic kidney disease, stage 3b;Bilater Performed By: #### V [id number], MANDI, B12, MG, PHOS, CMP, FOL, FE and TIBC, URIC #### [facility] [address] Bilirubin [Mass/Vol] 0.5 mg/dL Normal 0.3-1.0 [facility] Comment on above: Order Comment: Reaso n for Exam Acute kidney injury;Chronic kidney disease, stage 3b;Bilater Performed By: #### V [id number], MANDI, B12, MG, PHOS, CMP, FOL, FE and TIBC, URIC #### [facility] [address] Calcium [Mass/Vol] 9.3 mg/dL Normal 8.6-10.3 [facility] Comment on above: Order Comment: Reaso n for Exam Acute kidney injury;Chronic kidney disease, stage 3b;Bilater Performed By: #### V [id number], MANDI, B12, MG, PHOS, CMP, FOL, FE and TIBC, URIC #### [facility] [address] Chloride [Moles/Vol] 107 mmol/L Normal 98-107 [facility] Comment on above: Order Comment: Reaso n for Exam Acute kidney injury;Chronic kidney disease, stage 3b;Bilater Performed By: #### V [id number], MANDI, B12, MG, PHOS, CMP, FOL, FE and TIBC, URIC #### [facility] [address] CO2 [Moles/Vol] 31.6 mmol/L High 21.0-31.0 [facility] Comment on above: Order Comment: Reaso n for Exam Acute kidney injury;Chronic kidney disease, stage 3b;Bilater Performed By: #### V [id number], MANDI, B12, MG, PHOS, CMP, FOL, FE and TIBC, URIC #### [facility] [address] Creatinine [Mass/Vol] 1.41 mg/dL High 0.70-1.30 [facility] Comment on above: Order Comment: Reaso n for Exam Acute kidney injury;Chronic kidney disease, stage 3b;Bilater Performed By: #### V [id number], MANDI, B12, MG, PHOS, CMP, FOL, FE and TIBC, URIC #### [facility] [address] GFR/1.73 sq M.predicted MDRD (S/P/Bld) [Vol rate/Area] 50.692 mL/min/{1.73_m2} Normal [facility] Comment on above: Order Comment: Reaso n for Exam Acute kidney injury;Chronic kidney disease, stage 3b;Bilater Performed By: #### V [id number], MANDI, B12, MG, PHOS, CMP, FOL, FE and TIBC, URIC #### [facility] [address] Globulin (S) [Mass/Vol] 2.8 g/dL Normal [facility] Comment on above: Order Comment: Reaso n for Exam Acute kidney injury;Chronic kidney disease, stage 3b;Bilater Performed By: #### V [id number], MANDI, B12, MG, PHOS, CMP, FOL, FE and TIBC, URIC #### [facility] [address] Glucose [Mass/Vol] 107 mg/dL High 70-100 [facility] Comment on above: Order Comment: Reaso n for Exam Acute kidney injury;Chronic kidney disease, stage 3b;Bilater Result Comment: [place] Glucose Reference Range is dependent on time and content of last meal. Glucose of more than 200 mg/dL in a nonstressed, ambulatory subject supports the diagnosis of Diabetes Mellitus. ADA recommended reference range Performed By: #### V [id number], MANDI, B12, MG, PHOS, CMP, FOL, FE and TIBC, URIC #### [facility] [address] Potassium [Moles/Vol] 4.5 mmol/L Normal 3.5-5.1 [facility] Comment on above: Order Comment: Reaso n for Exam Acute kidney injury;Chronic kidney disease, stage 3b;Bilater Performed By: #### V [id number], MANDI, B12, MG, PHOS, CMP, FOL, FE and TIBC, URIC #### [facility] [address] Protein [Mass/Vol] 7.0 g/dL Normal 6.4-8.9 [facility] Comment on above: Order Comment: Reaso n for Exam Acute kidney injury;Chronic kidney disease, stage 3b;Bilater Performed By: #### V [id number], MANDI, B12, MG, PHOS, CMP, FOL, FE and TIBC, URIC #### [facility] [address] Sodium [Moles/Vol] 143 mmol/L Normal 136-145 [facility] Comment on above: Order Comment: Reaso n for Exam Acute kidney injury;Chronic kidney disease, stage 3b;Bilater Performed By: #### V [id number], MANDI, B12, MG, PHOS, CMP, FOL, FE and TIBC, URIC #### [facility] [address] [place] [address] [place] Urea nitrogen [Mass/Vol] 27 mg/dL High 7-25 [facility] Comment on above: Order Comment: Reaso n for Exam Acute kidney injury;Chronic kidney disease, stage 3b;Bilater Performed By: #### V [id number], MANDI, B12, MG, PHOS, CMP, FOL, FE and TIBC, URIC #### [facility] [address] Creatinine [Mass/volume] in Serum or PlasmaOrdered By: Celia aRmos on 04-08-2023 Creatinine [Mass/Vol] 1.41 mg/dL 0.70-1.30 [facility] Creatinine [Mass/volume] in UrineOrdered By: Celia Ramos on 04-08-2023 Creatinine (U) [Mass/Vol] 90.0 mg/dL 14.0-26.0 [facility] Dipstick and Microscopicon 1 06-08-2022 Appearance (U) Cloudy Critically abnormal Clear [facility] Comment on above: Order Comment: Reaso n for Exam Acute kidney injury;Chronic kidney disease, stage 3b;Bilater Performed By: #### V [id number], MANDI, B12, MG, PHOS, CMP, FOL, FE and TIBC, URIC #### [facility] [address] Bacteria,Urine 4+ High None Seen [facility] Comment on above: Order Comment: Reaso n for Exam Acute kidney injury;Chronic kidney disease, stage 3b;Bilater Performed By: #### V [id number], MANDI, B12, MG, PHOS, CMP, FOL, FE and TIBC, URIC #### [facility] [address] Bilirubin,Urine Negative Normal Negative [facility] Comment on above: Order Comment: Reaso n for Exam Acute kidney injury;Chronic kidney disease, stage 3b;Bilater Performed By: #### V [id number], MANDI, B12, MG, PHOS, CMP, FOL, FE and TIBC, URIC #### [facility] [address] [place] [address] Color (U) Yellow Normal Yellow [facility] Comment on above: Order Comment: Reaso n for Exam Acute kidney injury;Chronic kidney disease, stage 3b;Bilater Performed By: #### V [id number], MANDI, B12, MG, PHOS, CMP, FOL, FE and TIBC, URIC #### [facility] [address] [place] [address] Glucose Ql (U) Normal Normal Normal [facility] Comment on above: Order Comment: Reaso n for Exam Acute kidney injury;Chronic kidney disease, stage 3b;Bilater Performed By: #### V [id number], MANDI, B12, MG, PHOS, CMP, FOL, FE and TIBC, URIC #### [facility] [address] [place] [address] Hyaline Casts,Urine 9-19 High 0-8 [facility] Comment on above: Order Comment: Reaso n for Exam Acute kidney injury;Chronic kidney disease, stage 3b;Bilater Result Comment: PERF ORMED BY: [place] [address] PATHOLOGIST DEVELOPMENT MECHANIC OREN OWEN M.D. Performed By: #### V [id number], MANDI, B12, MG, PHOS, CMP, FOL, FE and TIBC, URIC #### [facility] [address] Ketones Ql (U) Negative Normal Negative [facility] Comment on above: Order Comment: Reaso n for Exam Acute kidney injury;Chronic kidney disease, stage 3b;Bilater Performed By: #### V [id number], MANDI, B12, MG, PHOS, CMP, FOL, FE and TIBC, URIC #### [facility] [address] Leukocyte esterase Test strip Ql (U) 4+ High Negative [facility] Comment on above: Order Comment: Reaso n for Exam Acute kidney injury;Chronic kidney disease, stage 3b;Bilater Performed By: #### V [id number], MANDI, B12, MG, PHOS, CMP, FOL, FE and TIBC, URIC #### [facility] [address] Nitrite,Urine Positive High Negative [facility] Comment on above: Order Comment: Reaso n for Exam Acute kidney injury;Chronic kidney disease, stage 3b;Bilater Performed By: #### V [id number], MANDI, B12, MG, PHOS, CMP, FOL, FE and TIBC, URIC #### [facility] [address] Occult Blood,Urine 1+ High Negative [facility] Comment on above: Order Comment: Reaso n for Exam Acute kidney injury;Chronic kidney disease, stage 3b;Bilater Result Comment: PERF ORMED BY: [place] [address] PATHOLOGIST DEVELOPMENT MECHANIC OREN OWEN M.D. Performed By: #### V [id number], MANDI, B12, MG, PHOS, CMP, FOL, FE and TIBC, URIC #### [facility] [address] [place] [address] pH (U) 7.0 [pH] Normal 5.0-9.0 [facility] Comment on above: Order Comment: Reaso n for Exam Acute kidney injury;Chronic kidney disease, stage 3b;Bilater Performed By: #### V [id number], MANDI, B12, MG, PHOS, CMP, FOL, FE and TIBC, URIC #### [facility] [address] Protein,Urine Trace High Negative [facility] Comment on above: Order Comment: Reaso n for Exam Acute kidney injury;Chronic kidney disease, stage 3b;Bilater Performed By: #### V [id number], MANDI, B12, MG, PHOS, CMP, FOL, FE and TIBC, URIC #### [facility] [address] [place] [address] RBC,Urine 3-4 Normal 0-4 [facility] Comment on above: Order Comment: Reaso n for Exam Acute kidney injury;Chronic kidney disease, stage 3b;Bilater Performed By: #### V [id number], MANDI, B12, MG, PHOS, CMP, FOL, FE and TIBC, URIC #### [facility] [address] [place] [address] Specificy Crawford,Urine 1.017 Normal 1.00 1-1.03 0 [facility] Comment on above: Order Comment: Reaso n for Exam Acute kidney injury;Chronic kidney disease, stage 3b;Bilater Performed By: #### V [id number], MANDI, B12, MG, PHOS, CMP, FOL, FE and TIBC, URIC #### [facility] [address] [place] [address] Squamous Epithelial Cell,Urine 0-1 Normal 0-2 [facility] Comment on above: Order Comment: Reaso n for Exam Acute kidney injury;Chronic kidney disease, stage 3b;Bilater Performed By: #### V [id number], MANDI, B12, MG, PHOS, CMP, FOL, FE and TIBC, URIC #### [facility] [address] Urobilinogen,Urine Normal Normal Normal [facility] Comment on above: Order Comment: Reaso n for Exam Acute kidney injury;Chronic kidney disease, stage 3b;Bilater Performed By: #### V [id number], MANDI, B12, MG, PHOS, CMP, FOL, FE and TIBC, URIC #### [facility] [address] WBC,Urine 50-100 High 0-4 [facility] Comment on above: Order Comment: Reaso n for Exam Acute kidney injury;Chronic kidney disease, stage 3b;Bilater Performed By: #### V [id number], MANDI, B12, MG, PHOS, CMP, FOL, FE and TIBC, URIC #### [facility] [address] Erythrocyte distribution wid th Auto (RBC) [Ratio]Ordered By: Celia Ramos on 04-08-2023 Erythrocyte distribution width (RBC) [Ratio] 15.7 % 12.0-14.8 [facility] Ferritinon 04-08-2023 Ferritin [Mass/Vol] 34.1 ng/mL Normal 23.9-336.2 [facility] Comment on above: Order Comment: Reaso n for Exam Acute kidney injury;Chronic kidney disease, stage 3b;Bilater Performed By: #### V [id number], MANDI, B12, MG, PHOS, CMP, FOL, FE and TIBC, URIC #### [facility] [address] [place] [address] Ferritin [Mass/volume] in Se rum or PlasmaOrdered By: Celia Ramos on 04-08-2023 Ferritin [Mass/Vol] 34.1 ng/mL 23.9-336.2 [facility] Folateon 04-08-2023 Folate 34.0 ng/mL Normal >5.9 [facility] Comment on above: Order Comment: Reaso n for Exam Acute kidney injury;Chronic kidney disease, stage 3b;Bilater Result Comment: [place]aryn [place] reference range: >5.9 ng/ml The WHO technical consultation on folate and vitamin b12 deficiencies has determined that folate concentrations less than 4 ng/ml are considered deficient. Performed By: #### V [id number], MANDI, B12, MG, PHOS, CMP, FOL, FE and TIBC, URIC #### [facility] [address] Folate [Mass/volume] in Seru m or PlasmaOrdered By: Celia Ramos on 04-08-2023 Folate [Mass/Vol] 34.0 ng/mL >5.9 [facility] Comment on above: Folate reference ran ge: >5.9 ng/mlThe WHO technical consultation on folate and vitamin [id number] has determined that folate concentrations lessthan 4 ng/ml are considered deficient. Globulin Calc (S) [Mass/Vol] Ordered By: Celia Ramos on 04-08-2023 Globulin (S) [Mass/Vol] 2.8 g/dL [facility] Glucose [Mass/volume] in Ser um or PlasmaOrdered By: Celia Ramos on 04-08-2023 Glucose [Mass/Vol] 107 mg/dL 70-100 [facility] Comment on above: ADA recommended refe rence rangeRandom Glucose Reference Range is dependent on time and content of last meal. Glucose of more than 200 mg/dL in a nonstressed, ambulatory subject supports the diagnosis of Diabetes Mellitus. Hematocrit Auto (Bld) [Volum e fraction]Ordered By: Celia Ramos on 04-08-2023 Hematocrit (Bld) [Volume fraction] 43.8 % 38.8-50.0 [facility] Hemoglobin [Mass/volume] in BloodOrdered By: Celia Ramos on 04-08-2023 Hemoglobin (Bld) [Mass/Vol] 14.3 g/dL 13.0-17.0 [facility] Hemogram CBC Without Diffon 04-08-2023 Erythrocyte distribution width (RBC) [Ratio] 15.7 % High 12.0-14.8 [facility] Comment on above: Order Comment: Reaso n for Exam Acute kidney injury;Chronic kidney disease, stage 3b;Bilater Performed By: #### V [id number], MANDI, B12, MG, PHOS, CMP, FOL, FE and TIBC, URIC #### [address] Hematocrit (Bld) [Volume fraction] 43.8 % Normal 38.8-50.0 [facility] Comment on above: Order Comment: Reaso n for Exam Acute kidney injury;Chronic kidney disease, stage 3b;Bilater Performed By: #### V [id number], MANDI, B12, MG, PHOS, CMP, FOL, FE and TIBC, URIC #### [address] Hemoglobin (Bld) [Mass/Vol] 14.3 g/dL Normal 13.0-17.0 [facility] Comment on above: Order Comment: Reaso n for Exam Acute kidney injury;Chronic kidney disease, stage 3b;Bilater Performed By: #### V [id number], MANDI, B12, MG, PHOS, CMP, FOL, FE and TIBC, URIC #### [address] MCH (RBC) [Entitic mass] 27.3 pg Low 27.5-35.2 [facility] Comment on above: Order Comment: Reaso n for Exam Acute kidney injury;Chronic kidney disease, stage 3b;Bilater Performed By: #### V [id number], MANDI, B12, MG, PHOS, CMP, FOL, FE and TIBC, URIC #### [address] MCV (RBC) [Entitic vol] 83.8 fL Normal 83.5-101 [facility] Comment on above: Order Comment: Reaso n for Exam Acute kidney injury;Chronic kidney disease, stage 3b;Bilater Performed By: #### V [id number], MANDI, B12, MG, PHOS, CMP, FOL, FE and TIBC, URIC #### [address] Mean Corpuscular HGB Conc 32.6 g/dL Normal 32.5-35.6 [facility] Comment on above: Order Comment: Reaso n for Exam Acute kidney injury;Chronic kidney disease, stage 3b;Bilater Performed By: #### V [id number], MANDI, B12, MG, PHOS, CMP, FOL, FE and TIBC, URIC #### [facility] [address] [place] [address] Platelet mean volume (Bld) [Entitic vol] 8.6 fL Normal 6.6-10.1 [facility] Comment on above: Order Comment: Reaso n for Exam Acute kidney injury;Chronic kidney disease, stage 3b;Bilater Result Comment: PERF ORMED BY: [place] [address] PATHOLOGIST DEVELOPMENT MECHANIC OREN OWEN M.D. Performed By: #### V [id number], MANDI, B12, MG, PHOS, CMP, FOL, FE and TIBC, URIC #### [address] Platelets (Bld) [#/Vol] 201 10*3/uL Normal 150-450 [facility] Comment on above: Order Comment: Reaso n for Exam Acute kidney injury;Chronic kidney disease, stage 3b;Bilater Performed By: #### V [id number], MANDI, B12, MG, PHOS, CMP, FOL, FE and TIBC, URIC #### [address] RBC (Bld) [#/Vol] 5.22 10*6/uL Normal 3.90-5.60 [facility] Comment on above: Order Comment: Reaso n for Exam Acute kidney injury;Chronic kidney disease, stage 3b;Bilater Performed By: #### V [id number], MANDI, B12, MG, PHOS, CMP, FOL, FE and TIBC, URIC #### [address] WBC (Bld) [#/Vol] 8.4 10*3/uL Normal 4.1-10.5 [facility] Comment on above: Order Comment: Reaso n for Exam Acute kidney injury;Chronic kidney disease, stage 3b;Bilater Performed By: #### V [id number], MANDI, B12, MG, PHOS, CMP, FOL, FE and TIBC, URIC #### [facility] [address] [id number] [place] Iron [Mass/volume] in Serum or PlasmaOrdered By: Celia Ramos on 04-08-2023 Iron [Mass/Vol] 53 ug/dL 50-212 [facility] Iron and TIBC Profileon 03-26 % Iron Saturation 14.3 % Low 20-50 [facility] Comment on above: Order Comment: Reaso n for Exam Acute kidney injury;Chronic kidney disease, stage 3b;Bilater Performed By: #### V [id number], MANDI, B12, MG, PHOS, CMP, FOL, FE and TIBC, URIC #### [facility] [address] Iron [Mass/Vol] 53 ug/dL Normal 50-212 [facility] Comment on above: Order Comment: Reaso n for Exam Acute kidney injury;Chronic kidney disease, stage 3b;Bilater Performed By: #### V [id number], MANDI, B12, MG, PHOS, CMP, FOL, FE and TIBC, URIC #### [facility] [address] [id number] [facility] Total Iron Binding Capacity 370 ug/dL Normal 255-450 [facility] Comment on above: Order Comment: Reaso n for Exam Acute kidney injury;Chronic kidney disease, stage 3b;Bilater Performed By: #### V [id number], MANDI, B12, MG, PHOS, CMP, FOL, FE and TIBC, URIC #### [facility] [address] [id number] [place] Transferrin [Mass/Vol] 264 mg/dL Normal 203-362 [facility] Comment on above: Order Comment: Reaso n for Exam Acute kidney injury;Chronic kidney disease, stage 3b;Bilater Performed By: #### V [id number], MANDI, B12, MG, PHOS, CMP, FOL, FE and TIBC, URIC #### [facility] [address] [id number] [place] Iron binding capacity [Mass/ volume] in Serum or PlasmaOrdered By: Celia Ramos on 04-08-2023 Iron binding capacity [Mass/Vol] 370 ug/dL 255-450 [facility] Iron saturation [Mass Fracti on] in Serum or PlasmaOrdered By: Celia Ramos on 04-08-2023 Iron saturation [Mass fraction] 14.3 % 20-50 [facility] Ketones Auto test strip (U) [Mass/Vol]Ordered By: Celia Ramos on 04-08-2023 Ketones (U) [Mass/Vol] Negative Negative [facility] - UrinalysisOrder ed By: Celia Ramos on 04-08-2023 Hyaline casts LM Ql (Urine sed) 02-11 [LPF] 0-8 [facility] Leukocytes [#/volume] correc phil for nucleated erythrocytes in Blood by Automated counOrdered By: Celia Ramos on 04-08-2023 WBC corrected for nucl RBC Auto (Bld) [#/Vol] 8.4 10*3/uL 4.1-10.5 [facility] Lipid Panelon 04-08-2023 Cholesterol [Mass/Vol] 107 mg/dL Low 140-200 [facility] Comment on above: Result Comment: Chol less than 200 mg/dl low risk Chol 201-239 mg/dl borderline risk Chol 240 mg/dl and greater high risk Performed By: #### V [id number], MANDI, B12, MG, PHOS, CMP, FOL, FE and TIBC, URIC #### [facility] [address] [place] [address] [place] Cholesterol in HDL [Mass/Vol] 34 mg/dL Normal 23-92 [facility] Comment on above: Result Comment: HDL CHOL ATP-III CLASSIFICATION Cardiovascular Risk HDL > or equal to 60 mg/dL LOW HDL < 40 mg/dL HIGH Performed By: #### V [id number], MANDI, B12, MG, PHOS, CMP, FOL, FE and TIBC, URIC #### [facility] [address] Cholesterol.total/Sonya sterol in HDL [Mass ratio] 3.1 {ratio} Normal <5.0 [facility] Comment on above: Result Comment: PERF ORMED BY: [place] [address] PATHOLOGIST DEVELOPMENT MECHANIC OREN OWEN M.D. Performed By: #### V [id number], MANDI, B12, MG, PHOS, CMP, FOL, FE and TIBC, URIC #### [facility] [address] LDL Cholesterol,Calculated 47 mg/dL Normal 0-100 [facility] Comment on above: Result Comment: LDL ATP III CLASSIFICATION LDL less than 100 mg/dL Optimal LDL 100-129 mg/dL Near or above optimal LDL 130-159 mg/dL Borderline high LDL 160-189 mg/dL High LDL greater than 189 mg/dL Very high Performed By: #### V [id number], MANDI, B12, MG, PHOS, CMP, FOL, FE and TIBC, URIC #### [address] Triglyceride w/Reflex 131 mg/dL Normal 0-149 [facility] Comment on above: Result Comment: TRIG ATP III CLASSIFICATION TRIG less than 150 mg/dL Normal TRIG 150-199 mg/dL Borderline high TRIG 200-500 mg/dL High TRIG greater than 500 mg/dL Very high Standard traceable to the Center for Disease Conrtrol and Prevention (CDC) test method. Performed By: #### V [id number], MANDI, B12, MG, PHOS, CMP, FOL, FE and TIBC, URIC #### [facility] [address] VLDL CHOLESTEROL 26 mg/dL Normal [facility] Comment on above: Performed By: #### V [id number], MANDI, B12, MG, PHOS, CMP, FOL, FE and TIBC, URIC #### [address] MCH Auto (RBC) [Entitic mass ]Ordered By: Celia Ramos on 04-08-2023 MCH (RBC) [Entitic mass] 27.3 pg 27.5-35.2 [facility] MCHC Auto (RBC) [Mass/Vol]Or dered By: Celia Ramos on 04-08-2023 MCHC (RBC) [Mass/Vol] 32.6 g/dL 32.5-35.6 [facility] MCV Auto (RBC) [Entitic vol] Ordered By: Celia Ramos on 04-08-2023 MCV (RBC) [Entitic vol] 83.8 fL 83.5-101 F [facility] Magnesiumon 04-08-2023 Magnesium [Mass/Vol] 2.2 mg/dL Normal 1.9-2.7 [facility] Comment on above: Order Comment: Reaso n for Exam Acute kidney injury;Chronic kidney disease, stage 3b;Bilater Performed By: #### V [id number], MANDI, B12, MG, PHOS, CMP, FOL, FE and TIBC, URIC #### [facility] [address] [place] [address] [place] Magnesium [Mass/volume] in S marium or PlasmaOrdered By: Celia Ramos on 04-08-2023 Magnesium [Mass/Vol] 2.2 mg/dL 1.9-2.7 [facility] Nitrite Test strip Ql (U)Ord ered By: Celia Ramos on 04-08-2023 Nitrite Ql (U) Positive Negative [facility] No Panel InformationOrdered By: Celia Ramos on 04-08-2023 Estimated GFR (CKD-EPI) 50.692 mL/Min [facility] Creatinine Clearance (Chem N/A [facility] Parathyrin.intact [Mass/volu me] in Serum or PlasmaOrdered By: Celia Ramos on 04-08-2023 Parathyrin.intact [Mass/Vol] 76.6 pg/mL [facility] Parathyroid Hormone Intacton 04-08-2023 Parathyroid Hormone Intact 76.6 pg/mL Normal [facility] Comment on above: Order Comment: Reaso n for Exam Acute kidney injury;Chronic kidney disease, stage 3b;Bilater Result Comment: PERF ORMED BY: [facility] [address] [place] [address] PATHOLOGIST DEVELOPMENT MECHANIC OREN OWEN M.D. Performed By: #### V [id number], MANDI, B12, MG, PHOS, CMP, FOL, FE and TIBC, URIC #### [facility] [address] [place] [address] [place] Phosphate [Mass/volume] in S marium or PlasmaOrdered By: Celia Ramos on 04-08-2023 Phosphate [Mass/Vol] 2.8 mg/dL 2.5-4.5 [facility] Phosphoruson 04-08-2023 Phosphate [Mass/Vol] 2.8 mg/dL Normal 2.5-4.5 [facility] Comment on above: Order Comment: Reaso n for Exam Acute kidney injury;Chronic kidney disease, stage 3b;Bilater Performed By: #### V [id number], MANDI, B12, MG, PHOS, CMP, FOL, FE and TIBC, URIC #### [facility] [address] [place] [address] [place] Platelet mean volume Auto (B ld) [Entitic vol]Ordered By: Celia Ramos on 04-08-2023 Platelet mean volume (Bld) [Entitic vol] 8.6 fL 6.6-10.1 [facility] Platelets Auto (Bld) [#/Vol] Ordered By: Celia Ramos on 04-08-2023 Platelets (Bld) [#/Vol] 201 10*3/uL 150-450 [facility] Potassium [Moles/volume] in Serum or PlasmaOrdered By: Celia Ramos on 04-08-2023 Potassium [Moles/Vol] 4.5 mmol/L 3.5-5.1 [facility] Protein Auto test strip (U) [Mass/Vol]Ordered By: Celia Ramos on 04-08-2023 Protein (U) [Mass/Vol] Trace mg/dL Negative [facility] Protein Creat Ratio Ur Rando mon 04-08-2023 Creatinine, Urine (Random) 90.0 mg/dL High 14.0-26.0 [facility] Comment on above: Order Comment: Reaso n for Exam Acute kidney injury;Chronic kidney disease, stage 3b;Bilater Performed By: #### V [id number], MANDI, B12, MG, PHOS, CMP, FOL, FE and TIBC, URIC #### [facility] [address] [place] [id number] [place] Protein (U) [Mass/Vol] 30 mg/dL High 0-9 [facility] Comment on above: Order Comment: Reaso n for Exam Acute kidney injury;Chronic kidney disease, stage 3b;Bilater Performed By: #### V [id number], MANDI, B12, MG, PHOS, CMP, FOL, FE and TIBC, URIC #### [facility] [address] Urine Protein/Creatinine Ratio 333 mg/g{Cre} High 0-200 [facility] Comment on above: Order Comment: Reaso n for Exam Acute kidney injury;Chronic kidney disease, stage 3b;Bilater Result Comment: PERF ORMED BY: [place] [address] PATHOLOGIST DEVELOPMENT MECHANIC OREN OWEN M.D. Performed By: #### V [id number], MANDI, B12, MG, PHOS, CMP, FOL, FE and TIBC, URIC #### [facility] [address] Protein [Mass/volume] in Ser um or PlasmaOrdered By: Celia Ramos on 04-08-2023 Protein [Mass/Vol] 7.0 g/dL 6.4-8.9 [facility] Protein [Mass/volume] in Uri neOrdered By: Celia Ramos on 04-08-2023 Protein (U) [Mass/Vol] 30 mg/dL 0-9 [facility] RBC Auto (Bld) [#/Vol]Ordere d By: Celia Ramos on 04-08-2023 RBC (Bld) [#/Vol] 5.22 10*6/uL 3.90-5.60 [facility] Serum or plasma albumin/glob ulin mass ratioOrdered By: Celia Ramos on 04-08-2023 Albumin/Globulin [Mass ratio] 1.5 {ratio} [facility] Serum or plasma anion gap de terminationOrdered By: Celia Ramos on 04-08-2023 Anion gap [Moles/Vol] 8.9 mmol/L 6.0-15.0 [facility] Serum or plasma high density lipoprotein (HDL) cholesterol measurementOrdered By: Teo Stokes on 04-08-2023 Cholesterol in HDL [Mass/Vol] 34 mg/dL 23-92 [facility] Comment on above: HDL CHOL ATP-III CLA SSIFICATION Cardiovascular RiskHDL > or equal to 60 mg/dL LOWHDL < 40 mg/dL HIGH Serum or plasma total choles terol/high density lipoprotein (HDL) cholesterol mass ratOrdered By: Teo Stokes on 04-08-2023 Cholesterol.total/Sonya sterol in HDL [Mass ratio] 3.1 {ratio} <5.0 [facility] Sodium [Moles/volume] in Ser um or PlasmaOrdered By: Celia Ramos on 04-08-2023 Sodium [Moles/Vol] 143 mmol/L 136-145 [facility] Specific gravity Auto test s trip (U) [Rel density]Ordered By: Celia Ramos on 04-08-2023 Specific gravity (U) [Rel density] 1.017 1.001-1.03 0 [facility] Squamous epithelial cells de tection in urine sediment by light microscopyOrdered By: Celia Ramos on 04-08-2023 Epithelial cells.squamous LM Ql (Urine sed) 0-1 [HPF] 0-2 [facility] Transferrin [Mass/volume] in Serum or PlasmaOrdered By: Celia Ramos on 04-08-2023 Transferrin [Mass/Vol] 264 mg/dL 203-362 [facility] Triglyceride [Mass/volume] i n Serum or PlasmaOrdered By: Teo Sotkes on 04-08-2023 Triglyceride [Mass/Vol] 131 mg/dL 0-149 [facility] Comment on above: TRIG ATP III CLASSIF ICATIONTRIG less than 150 mg/dL NormalTRIG 150-199 mg/dL Borderline highTRIG 200-500 mg/dL High TRIG greater than 500 mg/dL Very highStandard traceable to the Center for Disease Conrtrol and Prevention (CDC) test method. Urate [Mass/volume] in Serum or PlasmaOrdered By: Celia Ramos on 04-08-2023 Urate [Mass/Vol] 6.0 mg/dL 4.4-7.6 [facility] Urea nitrogen [Mass/volume] in Serum or PlasmaOrdered By: Celia Ramos on 04-08-2023 Urea nitrogen [Mass/Vol] 27 mg/dL 7- [facility] Uric Acidon 04-08-2023 Urate [Mass/Vol] 6.0 mg/dL Normal 4.4-7.6 [facility] Comment on above: Order Comment: Reaso n for Exam Acute kidney injury;Chronic kidney disease, stage 3b;Bilater Performed By: #### V [id number], MANDI, B12, MG, PHOS, CMP, FOL, FE and TIBC, URIC #### [facility] [address] Urine Cultureon 04-08-2023 Bacteria identified Cx Nom (U) ORGANISM: Klebsiella oxytoca (O:KLEOXY) [place] Count >100,000 ORGANISM: Morganella morganii (O:MORMOR) [place] Count >100,000 Aerobic RITESH Charge (NMIC56) SUSCEPTIBILITY ORGANISM: O:KLEOXY ANTIBIOTIC INTERPRETATION RITESH Amikacin S <16 Amoxacillin/K Clavulanate S <8 Ampicillin/Sulbactam S 88/4 Aztreonam S <4 Cefazolin I 16 Cefepime S <2 Ceftazidime S <1 Ceftazidime/Avibactam S <4 Ceftolozane/Tazobactam S <2 Ceftriaxone S <1 Cefuroxime S <4 Ciprofloxacin S <0.25 Ertapenem S <0.5 Gentamicin S <2 Levofloxacin S <0.5 Meropenem S <1 Meropenem/Vaborbactam S <2 Nitrofurantoin S <32 Piperacillin/Tazobactam S <8 Tetracycline S <4 Tigecycline S <2 Tobramycin S <2 Trimethoprim/Sulfamethoxaz ole S <0.5 Aerobic RITESH Charge (NMIC56) SUSCEPTIBILITY ORGANISM: O:MORMOR ANTIBIOTIC INTERPRETATION RITESH Amikacin S <16 Ampicillin/Sulbactam IB <4 Aztreonam IB <4 Cefepime S <2 Ceftazidime IB <1 Ceftazidime/Avibactam S <4 Ceftolozane/Tazobactam S <2 Ceftriaxone IB <1 Ciprofloxacin S <0.25 Ertapenem S <0.5 Gentamicin S <2 Levofloxacin S <0.5 Meropenem S <1 Meropenem/Vaborbactam S <2 Piperacillin/Tazobactam IB <8 Tetracycline S <4 Tobramycin S <2 Trimethoprim/Sulfamethoxaz ole S <0.5 S = SUSCEPTIBLE I = INTERMEDIATE R = RESISTANT BLANK = DATA NOT AVAILABLE, OR DRUG NOT ADVISABLE OR TESTED R* = RESISTANCE DUE TO EXTENDED SPECTRUM BETA-LACTAMASES ESBL = EXTENDED SPECTRUM BETA-LACTAMASE TFG = THYMIDINE-DEPENDENT STRAIN KEILA = BETA-LACTAMASE POSITIVE IB = INDUCIBLE BETA-LACTAMASE. APPEARS IN PLACE OF 'S' WITH SPECIES KNOWN TO POSSESS INDUCIBLE BETA-LACTAMASES. POTENTIALLY THEY MAY BECOME RESISTANT TO ALL B-LACTAM DRUGS. PERFORMED BY: [place] [address] PATHOLOGIST DEVELOPMENT MECHANIC OREN OWEN M.D. [facility] Comment on above: Performed By: #### V [id number], MANDI, B12, MG, PHOS, CMP, FOL, FE and TIBC, URIC #### [facility] [address] [place] [address] Urine bacteria detection by automated methodOrdered By: Celia Ramos on 04-08-2023 Bacteria Auto Ql (U) 4+ None Seen [facility] Urine clarity by refractomet ry automatedOrdered By: Celia Ramos on 04-08-2023 Clarity Refractometry automated (U) Cloudy Clear [facility] Urine glucose measurement by automated test strip (mass/volume)Ordered By: Celia Ramos on 04-08-2023 Glucose Auto test strip (U) [Mass/Vol] Normal mg/dL Normal [facility] Urine hemoglobin detection b y automated test stripOrdered By: Celia Ramos on 04-08-2023 Hemoglobin Auto test strip Ql (U) 1+ Negative [facility] Urine leukocyte esterase det ection by automated test stripOrdered By: Celia Ramos on 04-08-2023 Leukocyte esterase Auto test strip Ql (U) 4+ Negative [facility] Urine protein/creatinine rat ioOrdered By: Celia Ramos on 04-08-2023 Protein/Creatinine (U) [Ratio] 333 mg/g{Cre} 0-200 [facility] Urobilinogen Auto test strip (U) [Mass/Vol]Ordered By: Celia Ramos on 04-08-2023 Urobilinogen (U) [Mass/Vol] Normal mg/dL Normal [facility] Vitamin B12on 04-08-2023 Cobalamin (Vitamin B12) [Mass/Vol] 301 pg/mL Normal 180-914 [facility] Comment on above: Order Comment: Reaso n for Exam Acute kidney injury;Chronic kidney disease, stage 3b;Bilater Performed By: #### V [id number], MANDI, B12, MG, PHOS, CMP, FOL, FE and TIBC, URIC #### [address] Vitamin B12 ser/plasOrdered By: Celia Ramos on 04-08-2023 Cobalamin (Vitamin B12) [Mass/Vol] 301 pg/mL 180-914 [facility] Vitamin D 25 Hydroxy Totalon 04-08-2023 Vitamin D 25 Hydroxy Total 37.5 ng/mL Normal 30-100 [facility] Comment on above: Order Comment: Reaso n for Exam Acute kidney injury;Chronic kidney disease, stage 3b;Bilater Result Comment: [place] MIN D STATUS 25([place])VITAMIN D RANGE (ng/mL) Deficient <20 Insufficient 20 to <30 Sufficient 30 to 100 Reference: Sixto MF,Federico NC, Jeni-Brandon LESLIE, et al. Evaluation,treatment, and prevention of vitamin D deficiency; an Endocrine Society clinical practice guideline. JCEM. 2010; 96(7):1911-30. PERFORMED BY: [place] [address] PATHOLOGIST DEVELOPMENT MECHANIC OREN OWEN M.D. Performed By: #### V [id number], MANDI, B12, MG, PHOS, CMP, FOL, FE and TIBC, URIC #### [facility] [address] [place] [id number] [facility] Vitamin D+Metabolites [Mass/ volume] in Serum or PlasmaOrdered By: Celia Ramos on 04-08-2023 Vitamin D+Metabolites [Mass/Vol] 37.5 ng/mL 30-100 [facility] Comment on above: VITAMIN D STATUS 25( [place])VITAMIN D RANGE (ng/mL) Deficient <20 Insufficient 20 to <30Sufficient 30 to 100Reference: Sixto MF,Federico MATA, Palomo LESLIE, et al. Evaluation,treatment, and prevention of vitamin D deficiency; an Endocrine Society clinical practice guideline. JCEM. 2010; 96(7):1911-30. pH Auto test strip (U)Ordere d By: Celia Ramos on 04-08-2023 pH (U) 7.0 [pH] 5.0-9.0 [facility] UroVysion Fish and Urine Cyt o ([facility])on 03-18-2023 UVFISH & UC Diagnosis Info Invalid Interpretation Code [facility] Comment on above: Result Comment: A:Ur ine,Urine:Bladder Wash Diagnosis Summary - Rare atypical urothelial cells with degeneration. Adequate cellularity for evaluation. Diagnosis Summary - The UroVysion FISH study detected normal copy numbers for chromosomes 3, 7, 17, and 9p21. 100 cells were analyzed in this evaluation. No evidence of aneuploidy for chromosomes 3, 7, or 17 or deletion of the 9p21 locus was found in cells present in this specimen. This test does not rule out the possibility of a low grade non-invasive papillary urothelial carcinoma. These findings should be correlated with cytology and cystoscopy results.* CPT 11749, 82809. 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 Electronically signed by : on: 03/18/2023 13:35:55 Performed By: #### 1 [id number] ####[facility] [id number] [place] [id number] Reminderson 03-14-2023 Reminders - From: Dana Rivas To: EU - Recalls Arlene; Cc: Dana Rivas; Sent: 03/14/2023 08:18:18 EDT Show up: 07/25/2023 08:18:00 EST Subject: cysto/fish/cytol Due Date/Time: 08/11/2023 08:18:00 EDT Reminder/Recall Patient is due in August 2023 for 3 month cysto/fish/cytol Normal [facility] Consent for Procedure/Surger yon 03-12-2023 Consent for Procedure/Surgery [id number] [facility] Ambulatory Visit Summaryon 1 Ambulatory Visit Summary ALEX ANDERSON :1945 Visit Date:03/11/2023 Ambulatory Visit Instructions Your Diagnosis History of bladder cancer Urinary retention BPH with urinary obstruction Dementia Your Care Team Attending Physician - Katia SAMUELS MD Primary Care Physician - IDANIA CASILLAS, STANLEY Rich This Is Your Medications List ciprofloxacin (Cipro 250 mg Tab) Contact prescribing physician if questions or concerns albuterol (Albuterol (Eqv-ProAir HFA) 90 mcg/inh inhalation aerosol) metoprolol (Metoprolol tartrate 50 mg Tab) multivitamin simvastatin (simvastatin 20 mg Tab) Procedures Performed Cystoscope (03/11/2023), TURBT - Transurethral resection of bladder tumor (09/12/2022), Cystoscopy (07/31/2022). Discharge Vitals Heart Rate (Peripheral) 72 Blood Pressure 150/100 Height 187 cm Height 74 in Weight 93 kg Weight 204.6 lb BMI 26.59 What to do next You Need to Schedule the Following Appointments Follow Up with ARLENE CASILLAS, Katia Hall, URL When: In 3 months Comments: Sched cysto/FISH/Cytol/BT check Where: [facility] [address], [place] [address]- Medications What How Much When Instructions Unchanged ciprofloxacin (Cipro 250 mg Tab) 1 Tablets By Mouth Every day Take 1 tablet the day before the procedure and 1 tablet after the procedure Unchanged albuterol (Albuterol (Eqv-ProAir HFA) 90 mcg/ inh inhalation aerosol) Contact prescribing physician if questions or concerns Unchanged metoprolol (Metoprolol tartrate 50 mg Tab) Contact prescribing physician if questions or concerns Unchanged multivitamin Every day Contact prescribing physician if questions or concerns Unchanged simvastatin (simvastatin 20 mg Tab) Contact prescribing physician if questions or concerns Medications and Immunizations Administered Given lidocaine Top 2% Gel w/Appl 11 mL, 11 mL, Topical. For: History of bladder cancer Allergies No Known Medication Allergies Problems Ongoing - Any problem that you are currently receiving treatment for. 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 The prostate may get bigger as a man gets older. The condition is not caused by cancer. The prostate is a walnut-sized gland that is involved in the production of semen. It is located in front of the rectum and below the bladder. The bladder stores urine. The urethra carries stored urine out of the body. An enlarged prostate can press on the urethra. This can make it harder to pass urine. The buildup of urine in the bladder can cause infection. Back pressure and infection may progress to bladder damage and kidney (renal) failure. What are the causes? This condition is part of the normal aging process. However, not all men develop problems from this condition. If the prostate enlarges away from the urethra, urine flow will not be blocked. If it enlarges toward the urethra and compresses it, there will be problems passing urine. What increases the risk? This condition is more likely to develop in men older than 50 years. What are the signs or symptoms? Symptoms of this condition include: ? Getting up often during the night to urinate. ? Needing to urinate frequently during the day. ? Difficulty starting urine flow. ? Decrease in size and strength of your urine stream. ? Leaking (dribbling) after urinating. ? Inability to pass urine. This needs immediate treatment. ? Inability to completely empty your bladder. ? Pain when you pass urine. This is more common if there is also an infection. ? Urinary tract infection (UTI). How is this diagnosed? This condition is diagnosed based on your medical history, a physical exam, and your symptoms. Tests will also be done, such as: ? A post-void bladder scan. This measures any amount of urine that may remain in your bladder after you finish urinating. ? A digital rectal exam. In a rectal exam, your health care provider checks your prostate by putting a lubricated, gloved finger into your rectum to feel the back of your prostate gland. This exam detects the size of your gland and any abnormal lumps or growths. ? An exam of your urine (urinalysis). ? A prostate specific antigen (PSA) screening. This is a blood test used to screen for prostate cancer. ? An ultrasound. This test uses sound waves to electronically produce a picture of your prostate gland. Your health care provider may refer you to a specialist in kidney and (more content not included)... Normal [facility] Patient Educationon 03-11-20 23 Patient Education Urology Transurethral Resection of the Prostate Transurethral resection of the prostate (TURP) is the removal, or resection, of part of the prostate tissue. This procedure is done to treat an enlarged prostate gland (benign prostatic hyperplasia). The goal of TURP is to remove enough prostate tissue to allow for a normal flow of urine. The procedure will allow you to empty your bladder more completely when you urinate so that you can urinate less often. In a transurethral resection, a thin telescope with a light, a camera, and an electric cutting edge (resectoscope) is passed through the urethra and into the prostate. The opening of the urethra is at the end of the penis. Tell a health care provider about: ? Any allergies you have. ? All medicines you are taking, including vitamins, herbs, eye drops, creams, and eqaa-mnb-nnvqfvd medicines. ? Any problems you or family members have had with anesthetic medicines. ? Any bleeding problems you have. ? Any surgeries you have had. ? Any medical conditions you have. ? Any prostate infections you have had. What are the risks? Generally, this is a safe procedure. However, problems may occur, including: ? Infection. ? Bleeding. ? Allergic reactions to medicines. ? Blood in the urine (hematuria). ? Damage to nearby structures or organs. Other problems may occur, but they are rare. They include: ? Dry ejaculation, or having no semen come out during orgasm. ? Erectile dysfunction, or being unable to have or keep an erection. ? Scarring that leads to narrowing of the urethra. This narrowing may block the flow of urine. ? Inability to control when you urinate (incontinence). ? Deep vein thrombosis. This is a blood clot that can develop in your leg. ? TURP syndrome. This can happen when you lose too much sodium during or after the procedure. Some signs and symptoms of this condition include: ? Weakness. ? Headaches. ? Nausea or vomiting. ? Muscle cramping. What happens before the procedure? When to stop eating and drinking Follow instructions from your health care provider about what you may eat and drink before your procedure. These may include: ? 8 hours before your procedure ? Stop eating most foods. Do not eat meat, fried foods, or fatty foods. ? Eat only light foods, such as toast or crackers. ? All liquids are okay except energy drinks and alcohol. ? 6 hours before your procedure ? Stop eating. ? Drink only clear liquids, such as water, clear fruit juice, black coffee, plain tea, and sports drinks. ? Do not drink energy drinks or alcohol. ? 2 hours before your procedure ? Stop drinking all liquids. ? You may be allowed to take medicines with small sips of water. If you do not follow your health care provider's instructions, your procedure may be delayed or canceled. Medicines Ask your health care provider about: ? Changing or stopping your regular medicines. This is especially important if you are taking diabetes medicines or blood thinners. ? Taking medicines such as aspirin and ibuprofen. These medicines can thin your blood. Do not take these medicines unless your health care provider tells you to take them. ? Taking ptcr-zzz-uyrohbp medicines, vitamins, herbs, and supplements. Surgery safety Ask your health care provider what steps will be taken to help prevent infection. These steps may include: ? Removing hair at the surgery site. ? Washing skin with a germ-killing soap. ? Taking antibiotic medicine. General instructions ? Do not use any products that contain nicotine or tobacco for at least 4 weeks before the procedure. These products include cigarettes, chewing tobacco, and vaping devices, such as e-cigarettes. If you need help quitting, ask your health care provider. ? If you will be going home right after the procedure, plan to have a responsible adult: ? Take you home from the hospital or clinic. You will not be allowed to drive. ? Care for you for the time you are told. What happens during the procedure? ? An IV will be inserted into one of your veins. ? You will be given one or more of the following: ? A medicine to help you relax (sedative). ? A medicine to make you fall asleep (general anesthetic). ? A medicine that is injected into your spine to numb the area below and slightly above the injection site (spinal anesthetic). ? Your legs will be placed in foot rests (stirrups) so that your legs are apart and your knees are bent. ? The resectoscope will be passed through your urethra to your prostate. ? Parts of your prostate will be resected using the cutting edge of the resectoscope. ? Fluid will be passed to rinse out the cut tissues (irrigation). ? The resectoscope will be removed. ? A small, thin tube (catheter) will be passed through your urethra and into your bladder. The catheter will drain urine into a bag outside of your body. The procedure may vary among health care (more content not included)... Normal [facility] UroVysion Fish and Urine Cyt o ([facility])on 03-11-2023 [facility] Method of Extraction Bladder Urine Normal [facility] Comment on above: Performed By: #### 1 [id number] ####[facility] [id number] [place] [address] [facility] Number of Jars 1 Invalid Interpretation Code [facility] Comment on above: Performed By: #### 1 [id number] ####[facility] [id number] [place] [address] [facility] Specimen Bladder Wash Normal [facility] Comment on above: Performed By: #### 1 [id number] ####[facility] [address] [place] [address] [facility] Type of Service Technical Only Normal [facility] Comment on above: Performed By: #### 1 [id number] ####[facility] [address] [place] [address] Urology Office/Clinic Noteon 03-11-2023 Urology Office/Clinic Note Chief Complaint Cysto HPI Staff Pt here for 3 mos surveillance cysto, FISH, cytol. Urodynamics 01/07/23. Pt has Zapien, Zapien gets changed monthly by home health nurse, it was changed about 3 weeks ago S/P original TURBT/extraction of 2 bladder calculi 09/12/22 - Noninvasive papillary urothelial carcinoma, low grade. Need bladderwash History of Present Illness Tests reviewed: none. I have reviewed the previous health record information and history for this patient from . I have reviewed and verified the staff HPI to be accurate for this encounter. There have been no associated fever, chills, flank pain, or blood in the urine. Denies any urinary infections since last encounter. Review of Systems PHQ Score Initial Depression Screen Score: 0 ROS - Provider Constitutional: denies weight loss, denies hot flashes. Eyes: denies eye problems. Gastrointestinal: denies nausea, denies vomiting. Cardiovascular: denies chest pain or angina. Integumentary: no dryness Musculoskeletal: denies musculoskeletal symptoms. ENMT: denies otolaryngeal symptoms. Respiratory: no shortness of breath. Heme/Lymph: denies easy bleeding tendency, denies easy bruising tendency. Psychiatric: no confusion, no anxiety. Genitourinary: See HPI. Physical Exam Vitals & Measurements HR: 72(Peripheral) BP: 150/100 HT: 74 in HT: 187 cm WT: 93 kg WT: 204.6 lb BMI: 26.59 General Appearance: alert, no distress, well nourished, well developed male. Genitourinary: normal scrotum, normal testes, abnormalmeatal erosion from chronic cath tension urethra, normal epididymis, normal vas deferens/spermatic cord. Flank Pain: none. Bladder: nonpalpable. Prostate: normal prostate, estimated weight 35 gms, no hard nodule observed. Procedure Operative Information Anesthesia Type: Local Procedure: Local Cystoscopy Complications: None Surgical risks, benefits, details of the procedure have been explained to the patient. Full informed consent has been obtained. Intraoperative Information Prepped: Patient is brought back to the endoscopy suite. Patient is placed in supine position. Patient prepped in the usual fashion with Betadine solution. 2% Xylocaine Jelly is placed per Urethra. After waiting several minutes, the Cystoscope is introduced. The Urethra is: Normal Pt has meatal erosion on the tip of the penis from cath tension. The Prostatic Urethra is: Obstructed tightly obstructing median and lateral lobes, they are long The Bladder: Abnormal catheter cystitis, no tumors, no stones, Trabeculated: Severe (3) deep diverticuli diffusely The Ureteral orifices: Show efflux of clear urine Specimens Removed: Bladder wash sent for FISH and Cytology test Removal: Cystoscope is removed. The patient tolerated it well. Postoperative Information Patient is discharged home with antibiotic coverage. Follow up arranged. Assessment/Plan 1. History of bladder cancer (Z85.51: Personal history of malignant neoplasm of bladder) CT AP wo con 05/16/22 - 2.3 x 2.3 x 1.9 cm hyperdense mass adjacent to the left lateral anterior wall and roof of the bladder. Cysto 07/31/22 - Left back wall there is a 2-3 cm papillary TCC lesion over a tic. S/P First TURBT/extraction of 2 bladder calculi 09/12/22 - Path shows noninvasive papillary urothelial carcinoma, low grade. Invasion is not recognized. A small fragment of detrusor muscle is present in the specimen. Cysto 12/10/22 - no bladder tumor recurrence Pt had IO cysto to check for bladder tumor recurrence without complications today. Pt took prophylactic abx prior to procedure. Will send bladder wash specimen for FISH/cytol and call pt if positive. Pt has meatal erosion on the tip of the penis. Follow up in 3 mos w/cysto/FISH/Cytol/BT check. All questions/concerns were discussed. Pt to call the office if he encounters any issues prior. Pt acknowledges understanding. 2. Urinary retention (R33.9: Retention of urine, unspecified) Pt presented to [facility] ER on 09/15/22 due to catheter clogged. Pt was diagnosed w/ UTI and treated w/ Cipro 500 mg BID for x 7 days. Attempted urocuff, pt was unable to void, PVR 348 cc, cath placed 10/04/22. See #3. 3. BPH with urinary obstruction (N40.1: Benign prostatic hyperplasia with lower urinary tract symptoms) Cysto 07/31/22 - Trilobar obstruction. Severe trabeculation, deep diverticuli diffusely. 4. Dementia (F03.90: Unspecified dementia, unspecified severity, without behavioral disturbance, psychotic disturbance, mood disturbance, and anxiety) Reports of sundowning. Also pt hard of hearing. Follow-up With When Contact Information Katia SAMUELS MD, URL In 3 months [facility] [address], [place] [address]- Additional Instructions: Sched cysto/FISH/Cytol/BT check Patient Education Benign Prostatic Hyperplasia I, Dalila Lala , personally scribed for Dr. Samuels on 03/11/2023 14:20:53. Electronically signed by emma Lala on (more content not included)... Normal [facility] Comment on above: Result Comment: Elec tronically Signed By: Katia SAMUELS MD\.br\Date and Time Signed: 03/11/23 14:23 EDT\.br\Electronically Co-Signed By: Dalila Lala\.br\Date and Time Co-Signed: 03/11/23 14:21 EDT Office Visit (Cardiology)on 01-22-2023 Follow-up visit Diagnoses/Problems Assessed Hypertension (401.9) (I10) Dyslipidemia (272.4) (E78.5) AAA (abdominal aortic aneurysm) (441.4) (I71.40) Stage 3a chronic kidney disease (585.3) (N18.31) TIA (transient ischemic attack) (435.9) (G45.9) Overweight with body mass index (BMI) of 27 to 27.9 in adult (278.02,V85.23) (E66.3,Z68.27) Current smoker (305.1) (F17.200) 1/2 dozen cigarettes Cancer of bladder (188.9) (C67.9) Orders Dyslipidemia Renew: Simvastatin 20 MG Oral Tablet; TAKE 1 TABLET BY MOUTH EVERY DAY IN THE EVENING FOR 90 DAYS Lipid Panel; Status:Active - Retrospective Authorization; Requested for:22Jan2023; Overweight with body mass index (BMI) of 27 to 27.9 in adult Healthy Weight Tips; Status:Complete - Retrospective Authorization; Done: 22Jan2023 Some eating tips that can help you lose weight.; Status:Complete - Retrospective Authorization; Done: 22Jan2023 SocHx: Current smoker Start: Aspirin 81 MG Oral Tablet Delayed Release; TAKE 1 TABLET DAILY Tobacco Use Screening; Status:Complete; Done: 34Ycn7205 You need to stop smoking. Though it is not easy, more than half of all adult smokers have quit. We encourage you to write down all the reasons you should quit smoking and set a quit date for yourself. Ask us how we can help. You may also call 1-451-ZEXH-NOW for free resources and assistance.; Status:Complete - Retrospective Authorization; Done: [id number] Tobacco Use Screening; Status:Complete; Done: 26Gma9335 Patient Instructions Please bring all medicines, vitamins, and herbal supplements with you when you come to the office. Prescriptions will not be filled unless you are compliant with your follow up appointments or have a follow up appointment scheduled as per instruction of your physician. Refills should be requested at the time of your visit. Follow up in 1 year. Same meds. Chief Complaint ALEX ANDERSON is being seen for a 6 month follow-up of. Patient is in the office with his for follow-up for the problems noted below. Since he was last seen in the office he underwent AAA repair by Dr. Valentine without any problems. After quitting smoking for 3 months he went back to smoking. He reports no symptoms of dyspnea palpitations or chest pain. His was with him was the main source of information since the patient is hard of hearing. Reviewing the record from last year he had an echocardiogram which was unremarkable and nuclear stress test which for the most part was unremarkable as well. He is on metoprolol and simvastatin follows with his PCP regularly. Examination was only remarkable for overweight. Assessment/recommendations : 1?status post AAA stenting with EVAR 2022 with no complications. 2?chronic kidney disease stage III. Patient's follows with nephrology 3?hypertension, currently under control he is only on metoprolol. 4?hyperlipidemia on simvastatin, lipid profile is ordered 5?history of TIA on statin patient was advised to go back and take baby aspirin. 6?lifelong history of tobacco abuse, even though the patient quit smoking for 3 months he went back to smoking. Education was provided to quit smoking for good. 7?slight overweight, encouragement provided for prudent diet and daily activities 8?history of bladder cancer followed by urology in remission Surgical History Problems History of Bladder surgery History of Cataract surgery Denied: History of Colonoscopy History of Inferior vena cava stent placement History of Urinary catheter placement Past Medical History Problems History of Pre-operative examination (V72.84) (Z01.818) Resolved Date: 22 Jan 2023 Current Meds Medication NameInstruction Albuterol Sulfate HFA 108 (90 Base) MCG/ACT Inhalation Aerosol SolutionINHALE 2 PUFFS EVERY 4 HOURS NEEDED Ferrous Sulfate 325 (65 Fe) MG Oral TabletTake 1 tablet daily Metoprolol Tartrate 50 MG Oral TabletTAKE 1 TABLET BY MOUTH TWICE A DAY FOR 90 DAYS Multi Vitamin Oral TabletTAKE 1 TABLET DAILY. Simvastatin 20 MG Oral TabletTAKE 1 TABLET BY MOUTH EVERY DAY IN THE EVENING FOR 90 DAYS Allergies Medication No Known Drug Allergies Recorded By: Glory Stephens; 06/03/2022 3:35:07 PM Social History Problems Caffeine use (V49.89) (Z78.9) 3-4 cups coffee daily Current smoker (305.1) (F17.200) 1/2 dozen cigarettes No alcohol use No illicit drug use Review of Systems Constitutional: feeling tired. Cardiovascular: no intermittent leg claudication and as noted in HPI. Respiratory: no cough and no shortness of breath. Gastrointestinal: no change in bowel habits and no blood in stools. Integumentary: no skin rashes. Neurological: no seizures and no frequent falls. All other systems have been reviewed and are negative for complaint. Vitals Vital Signs Recorded: [id number] 09:57AM Heart Rate72, L Radial Cxliousa241, LUE, Sitting Vfmdogszy76, LUE, Sitting Height6 ft 2 in Lavtcs642 lb BMI Xbfwypbaay16.35 kg/m2 BSA Calculat (more content not included)... Normal [facility] Tobacco Screening.on 023 Fall risk assessment a) No falls within the last year -[facility] [employer] 250 DO Work Phone: Tobacco use status [facility] a) Yes [facility] [employer] 250 DO Work Phone: Tobacco Screening. Yes [facility] [employer] 250 DO Work Phone: IntraOperative Documentson 0 01-13-2023 IntraOperative Documents [id number]#1.00CD:127 Normal [facility] Consent for Procedure/Surger yon 01-07-2023 Consent for Procedure/Surgery [id number]#1.00CD:127 Normal [facility] IntraOperative Documentson 0 01-07-2023 IntraOperative Documents [id number]#1.00CD:127 Normal [facility] Consent for Treatmenton 080 Consent for Treatment [id number]#1.00CD:127 Normal [facility] Fish and Urine Cyt o ([facility])on 12-17-2022 UVFISH & UC Diagnosis Info Invalid Interpretation Code [facility] Comment on above: Result Comment: A:Ur ine,Urine:Bladder Wash Diagnosis Summary - Rare atypical urothelial cells with degeneration. Adequate cellularity for evaluation. Diagnosis Summary - The [facility] FISH study detected normal copy numbers for chromosomes 3, 7, 17, and 9p21. 101 cells were analyzed in this evaluation. No evidence of aneuploidy for chromosomes 3, 7, or 17 or deletion of the 9p21 locus was found in cells present in this specimen. This test does not rule out the possibility of a low grade non-invasive papillary urothelial carcinoma. These findings should be correlated with cytology and cystoscopy results.* CPT 68905, 78031. Microscopic Notes - Microscopic Notes - Abnormal cells 9p21 deletions: Abnormal cells aneploid events: Total cells analyzed: 101 Hematuria: Gross Description Site ID:A color No Color fixative Alcohol Received 60 mls of clear no color fluid with the patient's name and, Urine on the vial. Electronically signed by : on: 12/17/2022 09:12:29 Performed By: #### 1 [id number] ####[facility] [id number] [place] [address] Urology Office/Clinic Noteon 12-16-2022 Urology Office/Clinic Note Chief Complaint Cysto/Fish/cytology HPI Staff 77 year old male here for Cysto/fish/cytology. ABX taken. Pt. did not have Urocuff done due to not be able to urinate and catheter was placed. History of Present Illness Tests reviewed: reviewed none. I have reviewed the previous health record information and history for this patient from Dr. Samuels. I have reviewed and verified the staff HPI to be accurate for this encounter. There have been no associated fever, chills, flank pain, or blood in the urine. Denies any urinary infections since last encounter. Review of Systems PHQ Score Initial Depression Screen Score: 0 ROS - Provider Constitutional: denies weight loss, denies hot flashes. Eyes: denies eye problems. Gastrointestinal: denies nausea, denies vomiting. Cardiovascular: denies chest pain or angina. Integumentary: no dryness Musculoskeletal: denies musculoskeletal symptoms. ENMT: denies otolaryngeal symptoms. Respiratory: no shortness of breath. Heme/Lymph: denies easy bleeding tendency, denies easy bruising tendency. Psychiatric: no confusion, no anxiety. Genitourinary: See HPI. Pt here with today who acted as chief historian due to #4. Physical Exam Vitals & Measurements HT: 74 in HT: 187 cm WT: 93 kg WT: 204.6 lb BMI: 26.59 General Appearance: alert, no distress, well nourished, well developed male. Genitourinary: normal scrotum, normal testes, normal urethra, normal epididymis, normal vas deferens/spermatic cord. Flank Pain: none. Bladder: nonpalpable. Procedure Operative Information Anesthesia Type: Local Procedure: Local Cystoscopy Complications: None Surgical risks, benefits, details of the procedure have been explained to the patient. Full informed consent has been obtained. Intraoperative Information Prepped: Patient is brought back to the endoscopy suite. Patient is placed in supine position. Patient prepped in the usual fashion with Betadine solution. 2% Xylocaine Jelly is placed per Urethra. After waiting several minutes, the Cystoscope is introduced. The Urethra is: Normal The Prostatic Urethra is: _Trilobar obstruction. The Bladder: _No tumors or stones. Trabeculated: Severe (3), deep diverticuli diffusely. The Ureteral orifices: Show efflux of clear urine Specimens Removed: Bladder wash sent for FISH and Cytology test Removal: Cystoscope is removed. The patient tolerated it well. Postoperative Information Patient is discharged home with antibiotic coverage. Follow up arranged. Assessment/Plan Pt here with today who acted as chief historian due to #4. 1. History of bladder cancer (Z85.51: Personal history of malignant neoplasm of bladder) CT AP wo con 05/16/22 - 2.3 x 2.3 x 1.9 cm hyperdense mass adjacent to the left lateral anterior wall and roof of the bladder. Cysto 07/31/22 - Left back wall there is a 2-3 cm papillary TCC lesion over a tic. S/P First TURBT/extraction of 2 bladder calculi 09/12/22 - Path shows noninvasive papillary urothelial carcinoma, low grade. Invasion is not recognized. A small fragment of detrusor muscle is present in the specimen. Pt had IO cysto to check for bladder tumor recurrence without complications today. Pt took prophylactic abx prior to procedure. Will send bladder wash specimen for FISH/cytol and call pt if positive. Cysto today was negative for recurrence. Follow up after urodynamics for 3 mos cysto/bt ck/FISH/cytol or sooner if needed. Pt understands and agrees with plan. 2. Urinary retention (R33.9: Retention of urine, unspecified) Pt presented to [facility] ER on 09/15/22 due to catheter clogged. Pt was diagnosed w/ UTI and treated w/ Cipro 500 mg BID for x 7 days. Attempted urocuff, pt was unable to void, PVR 348 cc, cath placed 10/04/22. See #3. 3. BPH with urinary obstruction (N40.1: Benign prostatic hyperplasia with lower urinary tract symptoms) Cysto 07/31/22 - Trilobar obstruction. Severe trabeculation, deep diverticuli diffusely. 4. Dementia (F03.90: Unspecified dementia, unspecified severity, without behavioral disturbance, psychotic disturbance, mood disturbance, and anxiety) Reports of sundowning. Also pt hard of hearing. [1] Follow-up With When Contact Information ARLENE CASILLAS, Katia Hall, URL [facility] [address], [place] [address]- Additional Instructions: Follow up after urodynamics for 3 mos cysto/bt ck/FISH/cytol Patient Education Cancer Screening for Men I, Citlalli Rushing, personally scribed for Dr. Samuels on 12/10/2022 13:37:32. . Documentation recorded by the scribe, Citlalli Kristan, accurately reflects the services(s) I performed and decisions made by me. Authenticated by Dr. Samuels on 12/10/2022 13:42:31. 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 Normal [facility] Comment on above: Result Comment: Elec tronically Signed By: Dana Rivas\.gonsalo\Date and Time Signed: 12/16/22 11:30 EDT Consent for Procedure/Surger yon 12-11-2022 Consent for Procedure/Surgery [id number]#[id number]:127 Normal [facility] Ambulatory Visit Summaryon 0 12-10-2022 Ambulatory Visit Summary ALEX ANDERSON :1945 Visit Date:12/10/2022 Ambulatory Visit Instructions Your Diagnosis History of bladder cancer Urinary retention BPH with urinary obstruction Dementia Your Care Team Attending Physician - ARLENE CASILLAS, Katia Hall Primary Care Physician - IDANIA CASILLAS, STANLEY Rich This Is Your Medications List ciprofloxacin (Cipro 250 mg Tab) Contact prescribing physician if questions or concerns albuterol (Albuterol (Eqv-ProAir HFA) 90 mcg/inh inhalation aerosol) metoprolol (Metoprolol tartrate 50 mg Tab) multivitamin simvastatin (simvastatin 20 mg Tab) Procedures Performed TURBT - Transurethral resection of bladder tumor (09/12/2022), Cystoscopy (07/31/2022). Discharge Vitals Height 187 cm Height 74 in Weight 93 kg Weight 204.6 lb BMI 26.59 What to do next You Need to Schedule the Following Appointments Follow Up with ARLENE CASILLAS, Katia Hall, ADRIA When: Where: [facility] [address] [place] [address]- Medications What How Much When Instructions Unchanged ciprofloxacin (Cipro 250 mg Tab) 1 Tablets By Mouth Every day Take 1 tablet the day before the procedure and 1 tablet after the procedure Unchanged albuterol (Albuterol (Eqv-ProAir HFA) 90 mcg/ inh inhalation aerosol) Contact prescribing physician if questions or concerns Unchanged metoprolol (Metoprolol tartrate 50 mg Tab) Contact prescribing physician if questions or concerns Unchanged multivitamin Every day Contact prescribing physician if questions or concerns Unchanged simvastatin (simvastatin 20 mg Tab) Contact prescribing physician if questions or concerns Medications and Immunizations Administered Given lidocaine Top 2% Gel w/Appl 6 mL, 6 mL, Topical. For: Allergies No Known Medication Allergies Problems Ongoing - Any problem that you are currently receiving treatment for. Abdominal aortic aneurysm Acute kidney failure Bladder cancer Bladder mass Bladder stones BPH with urinary obstruction COPD with emphysema Dementia History of bladder cancer Hydronephrosis Hydroureter Hyperkalemia Hyperlipidemia Hypertension Lesion of bladder Renal lesion Transient cerebral ischemic attack Urinary retention Education Materials Cancer Screening for Men A cancer screening is a test or exam that checks for cancer. Your health care provider will recommend specific cancer screenings based on your age, medical history (including risk factors), and family history of cancer. Work with your health care provider to create a cancer screening schedule that protects your health. Who should have screening? All men should be considered for screening of certain cancers, including colorectal cancer, prostate cancer, lung cancer, and skin cancer. Your health care provider may recommend screenings for other types of cancer if: ? You had cancer before. ? You have a family member with cancer. ? You have abnormal genes that could increase the risk of cancer. ? You have risk factors for certain cancers, such as current or past use of tobacco products, or being overweight. When you should be screened for cancer depends on: ? Your age. ? Your medical history and your family's medical history. ? Certain lifestyle factors, such as smoking or other use of tobacco products. ? Environmental exposure, such as to asbestos. How is screening done? Colorectal cancer All adults should have screenings starting at age 45 and continuing until age 75. Your health care provider may recommend screening before age 45. You will have tests every 1?10 years, depending on your results and the type of screening test. People at increased risk should start screening at an earlier age. Talk with your health care provider about which screening test is right for you and how often you should be screened. Colorectal cancer screening looks for cancer or for growths called polyps that often form before cancer starts. Tests to look for cancer or polyps include: ? Colonoscopy or flexible sigmoidoscopy. For these procedures, a flexible tube with a small camera is inserted into the rectum. ? CT colonography. This test uses X-rays and a contrast dye to check the colon for polyps. If a polyp is found, you may need to have a colonoscopy so the polyp can be located and removed. Tests to look for cancer in the stool (feces) include: ? Guaiac-based fecal occult blood test (FOBT). This test can find blood in stool. It can be done at home with a kit. ? Fecal immunochemical test (FIT). This test can find blood in stool. For this test, you will need to collect stool samples at home. ? Stool DNA test. This test looks for blood in stool and any changes in DNA that can lead to colon cancer. For this test, you will need to collect a stool sample at home and send it to a lab. Prostate cancer Prostate cancer screening for men with average risk may start at age 50. Men with r (more content not included)... Normal [facility] Patient Educationon 12-11-19 Patient Education Oncology Cancer Screening for Men A cancer screening is a test or exam that checks for cancer. Your health care provider will recommend specific cancer screenings based on your age, medical history (including risk factors), and family history of cancer. Work with your health care provider to create a cancer screening schedule that protects your health. Who should have screening? All men should be considered for screening of certain cancers, including colorectal cancer, prostate cancer, lung cancer, and skin cancer. Your health care provider may recommend screenings for other types of cancer if: ? You had cancer before. ? You have a family member with cancer. ? You have abnormal genes that could increase the risk of cancer. ? You have risk factors for certain cancers, such as current or past use of tobacco products, or being overweight. When you should be screened for cancer depends on: ? Your age. ? Your medical history and your family's medical history. ? Certain lifestyle factors, such as smoking or other use of tobacco products. ? Environmental exposure, such as to asbestos. How is screening done? Colorectal cancer All adults should have screenings starting at age 45 and continuing until age 75. Your health care provider may recommend screening before age 45. You will have tests every 1?10 years, depending on your results and the type of screening test. People at increased risk should start screening at an earlier age. Talk with your health care provider about which screening test is right for you and how often you should be screened. Colorectal cancer screening looks for cancer or for growths called polyps that often form before cancer starts. Tests to look for cancer or polyps include: ? Colonoscopy or flexible sigmoidoscopy. For these procedures, a flexible tube with a small camera is inserted into the rectum. ? CT colonography. This test uses X-rays and a contrast dye to check the colon for polyps. If a polyp is found, you may need to have a colonoscopy so the polyp can be located and removed. Tests to look for cancer in the stool (feces) include: ? Guaiac-based fecal occult blood test (FOBT). This test can find blood in stool. It can be done at home with a kit. ? Fecal immunochemical test (FIT). This test can find blood in stool. For this test, you will need to collect stool samples at home. ? Stool DNA test. This test looks for blood in stool and any changes in DNA that can lead to colon cancer. For this test, you will need to collect a stool sample at home and send it to a lab. Prostate cancer Prostate cancer screening for men with average risk may start at age 50. Men with risk factors may need to be screened earlier, at ages 40?45. Talk with your health care provider about whether screening is right for you and, if so, how often you should be screened. Prostate cancer screening is done with blood tests and a digital rectal exam. During this exam, a health care provider uses a gloved finger to check prostate size. You may need to be screened for prostate cancer if: ? You have risk factors for prostate cancer, such as being or having a close family member with prostate cancer. ? You have had gene changes or a genetic condition that was passed on to you from a parent (inherited). These gene changes or genetic conditions include BRCA1 or BRCA2 gene mutations or Mccormack syndrome. ? You have symptoms of prostate cancer, such as problems urinating or problems getting or keeping an erection (erectile dysfunction). When you have been screened for prostate cancer, future screening may be recommended based on the results of your blood tests. Lung cancer Lung cancer screening is done with a CT scan that looks for abnormal changes in the lungs. Discuss lung cancer screening with your health care provider if you are 50?80 years old and if any of the following apply to you: ? You currently smoke. ? You used to smoke heavily. ? You have a smoking history of 1 pack of cigarettes a day for 20 years or 2 packs a day for 10 years. ? You have quit smoking within the past 15 years. You may need to be screened every year if you smoke heavily or if you used to smoke. Skin cancer Skin cancer screening is done by checking the skin for unusual moles or spots and any changes in existing moles. Your health care provider should check your skin for signs of skin cancer at every physical exam. You should check your skin every month and tell your health care provider right away if anything looks unusual. Men with a kjekln-aihw-dqmqgg risk for skin cancer may want to see a jaw skinner (telecom manager) for an annual body check. What are the benefits of screening? Cancer screening is done to look for cancer in the very early stages, before it spreads and becomes harder to treat and before you would start to notice symptoms. Finding cancer early improves the chances of successful treatment. It ma (more content not included)... Normal [facility] U[facility]ion Fish and Urine Cyt o ([facility])on 12-10-2022 [facility] Method of Extraction Bladder Wash Normal [facility] Comment on above: Performed By: #### 1 [id number] ####[facility] [id number] [place] [address] [facility] Number of Jars 1 Invalid Interpretation Code [facility] Comment on above: Performed By: #### 1 [id number] ####[facility] [id number] [place] [address] [facility] Specimen Urine Normal [facility] Comment on above: Performed By: #### 1 [id number] ####[facility] [id number] [place] [address] [facility] Type of Service Technical Only Normal [facility] Comment on above: Performed By: #### 1 [id number] ####[facility] [id number] [place] [address] Urology Office/Clinic Noteon 09-19-2022 Urology Office/Clinic Note Chief Complaint Pt is here for PO TURBT HPI Staff Alex is a 76 y.o. male here for PO TURBT. Previous Dx: acute kidney failure, bladder mass, bladder stones, hydronephrosis, hydroureter, lesion of bladder, renal lesion, urinary retention. S/P TURBT done on 09/12/22, cystoscopy done on 07/31/22. Pathology showed noninvasive papillary urothelial carcinoma, low grade. Pt presented to [facility] ER on 09/15/22 due to catheter clogged. Pt was diagnosed w/ UTI and treated w/ Cipro 500mg BID for x7 days (currently on antibiotic). Dysuria: denies Incomplete bladder emptying: Pt has catheter Hematuria: denies Leaking: mild around tip of catheter due to spasms History of Present Illness Tests reviewed: path, op note. I have reviewed the previous health record information and history for this patient from Dr. Samuels. I have reviewed and verified the staff HPI to be accurate for this encounter. There have been no associated fever, chills, flank pain, or blood in the urine. Denies any urinary infections since last encounter. Review of Systems PHQ Score Initial Depression Screen Score: 0 ROS - Provider Constitutional: denies weight loss, denies hot flashes. Eyes: denies eye problems. Gastrointestinal: denies nausea, denies vomiting. Cardiovascular: denies chest pain or angina. Integumentary: no dryness Musculoskeletal: denies musculoskeletal symptoms. ENMT: denies otolaryngeal symptoms. Respiratory: no shortness of breath. Heme/Lymph: denies easy bleeding tendency, denies easy bruising tendency. Psychiatric: no confusion, no anxiety. Genitourinary: See HPI. Pt here with his today who acted as chief historian. Physical Exam Vitals & Measurements HT: 74 in HT: 187 cm WT: 93 kg WT: 204.6 lb BMI: 26.59 General Appearance: alert, no distress, well nourished, well developed male. Genitourinary: normal scrotum, normal testes, normal urethra, normal epididymis, normal vas deferens/spermatic cord. Flank Pain: none. Bladder: nonpalpable. Assessment/Plan Pt here with his today who acted as chief historian. 1. Bladder cancer (C67.9: Malignant neoplasm of bladder, unspecified) CT 05/16/22 shows 2.3 x 2.3 x 1.9 cm hyperdense mass adjacent to the left lateral anterior wall and roof of the bladder. Cysto 07/31/22 -The Bladder: Left back wall there is a 2-3 cm papillary TCC lesion over a tic. One 0.5 cm stone in the bladder. S/P TURBT/extraction of 2 bladder calculi 09/12/22 - Path shows noninvasive papillary urothelial carcinoma, low grade. Reviewed path with pt and , path was + for cancer but could be worse. Will continue routine cystos to check for recurrence. Will schedule cysto/bt ck. The risks and benefits for cystoscopy have been discussed. The risks include bleeding, infection, and irritation of the bladder and urinary channel, among others. The patient, after being informed of procedural details and after questions have been answered, wishes to proceed. Full informed consent has been obtained. Will order Local anesthesia. Prophy abx sent to [facility]. 2. 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 Pt presented to [facility] ER on 09/15/22 due to catheter clogged. Pt was diagnosed w/ UTI and treated w/ Cipro 500 mg BID for x 7 days (currently on antibiotic). Pt does not cath but would rather have it than other worse options. Discussed bladder function testing with [facility]. -Schedule [facility] 3. Bladder stones (N21.0: Calculus in bladder) CT 05/16/22 - Two 5 mm bladder stones noted. Cysto 07/31/22 - One 0.5 cm stone in the bladder. S/P TURBT/extraction of 2 bladder calculi 09/12/22. 4. Dementia (F03.90: Unspecified dementia, unspecified severity, without behavioral disturbance, psychotic disturbance, mood disturbance, and anxiety) Reports of sundowning. Also pt hard of hearing. Follow-up With When Contact Information ARLENE CASILLAS, Katia Hall, URL [facility] [address], [place] [address]- Additional Instructions: schedule [facility], 3 mos cysto/bt ck Patient Education Bladder Cancer I, Citlalli Rushing, personally scribed for Dr. Samuels on 09/18/2022 15:34:51. . Documentation recorded by the scribe, Citlalli Rushing, accurately reflects the services(s) I performed and decisions made by me. Authenticated by Dr. Samuels on 09/18/2022 15:37:21. Problem List/Past Medical History Ongoing Abdominal aortic aneurysm Acute kidney failure Bladder cancer Bladder mass Bladder stones COPD with emphysema Dementia Hydronephrosis Hydroureter Hyperkalemia Hyperlipidemia Hypertension Lesion of bladder Renal lesion Transient cerebral ischemic attack Urinary retention Historical No qualifying data Procedure/Surgical History TURBT - Transurethral resection of bladder tumor ( (more content not included)... [facility] Comment on above: Result Comment: Elec tronically Signed By: Dana Rivas\.br\Date and Time Signed: 09/19/22 15:37 EDT Ambulatory Visit Summaryon 0 09-18-2022 Ambulatory Visit Summary ALEX ANDERSON :1945 Visit Date:09/18/2022 Ambulatory Visit Instructions Your Diagnosis Bladder cancer Urinary retention Bladder stones Dementia Your Care Team Attending Physician - ARLENE CASILLAS, Katia Hall Primary Care Physician - IDANIA CASILLAS, STANLEY Rich This Is Your Medications List Contact prescribing physician if questions or concerns albuterol (Albuterol (Eqv-ProAir HFA) 90 mcg/inh inhalation aerosol) metoprolol (Metoprolol tartrate 50 mg Tab) multivitamin simvastatin (simvastatin 20 mg Tab) Procedures Performed TURBT - Transurethral resection of bladder tumor (09/12/2022), Cystoscopy (07/31/2022). Discharge Vitals Height 187 cm Height 74 in Weight 93 kg Weight 204.6 lb BMI 26.59 What to do next Scheduled Follow-Up Appointments Friday 10:00 AM EDT Where[facility] CULTURE URINEon 09-18-2022 CULTURE URINE Isolate 1 Pseudomonas aeruginosa >100,000 cfu/mL of ORGANISM 1 Pseudomonas aeruginosa ANTIBIOTIC M.I.C RX STATUS Piperacillin/Tazobactam <=4 S F Ceftazidime <=1 S F Imipenem 2 S F Amikacin <=2 S F Gentamicin 2 S F Tobramycin <=1 S F Ciprofloxacin <=0.25 S F Levofloxacin <=0.12 S F Normal [facility] Comment on above: Performed By: #### U RTPCR #### [facility] [address] [address] [address] Karen Pierce Patient Educationon 09-19-19 23 Patient Education Oncology Bladder Cancer Bladder cancer is a condition where abnormal tissue (a tumor) grows in the bladder. The bladder is the organ that holds urine. Two tubes (ureters) carry urine from the kidneys to the bladder. The bladder wall is made of layers of tissue. Cancer that spreads through these layers of the bladder wall becomes more difficult to treat. What increases the risk? The following factors may make you more likely to develop this condition: ? Smoking. ? Working where there are risks (occupational exposures), such as working with rubber, leather, clothing fabric, dyes, chemicals, or paint. ? Being 55 years of age or older. ? Being male. ? Having long-term bladder inflammation. ? Having a history of cancer. This includes: ? A family history of bladder cancer. ? Having had bladder cancer before. ? Having had certain treatments for cancer before, such as: ? Medicines to kill cancer cells (chemotherapy). ? Strong X-ray beams or high-energy capsules to kill cancer cells and shrink tumors (radiation therapy). ? Having been exposed to arsenic. This is a poisonous substance. What are the signs or symptoms? Early symptoms of this condition include: ? Blood in your urine. ? Pain when urinating. ? Infections of your urinary system (urinary tract infections or UTIs) that happen often. ? Having to urinate sooner or more often than normal. Late symptoms of this condition include: ? Not being able to urinate. ? Pain on one side of your lower back. ? Loss of appetite. ? Weight loss. ? Tiredness (fatigue). ? Swelling in your feet. ? Bone pain. How is this diagnosed? This condition is diagnosed based on: ? Your medical history. ? A physical exam. ? Lab tests, such as urine tests. ? Imaging tests. ? Your symptoms. You may also have other tests or procedures, such as: ? A cystoscopy. This involves putting a narrow tube into your urethra. The urethra is the organ that carries urine from your bladder to the outside of your body. This procedure is done to view the lining of your bladder for tumors. ? A biopsy. This involves removing a tissue sample to look at under a microscope to check for cancer. Blood tests or imaging tests may be needed. These show how far into the bladder wall cancer has grown, and if cancer has spread to any other parts of your body. Tests may include: ? CT scan. ? MRI. ? Bone scan. ? X-ray. How is this treated? Your health care provider may recommend one or more types of treatment based on the stage of your cancer. The most common treatments are: ? Surgery to remove the cancer. Types of surgeries include: ? Removing a tumor on the inside wall of the bladder (transurethral resection). ? Removing the bladder (cystectomy). ? Radiation therapy. This is often combined with chemotherapy. ? Chemotherapy. ? Immunotherapy. This uses medicines to help your body's disease-fighting system (immune system) destroy cancer cells. Follow these instructions at home: ? Take rnlr-btt-trkgijw and prescription medicines only as told by your health care provider. ? If you were prescribed an antibiotic medicine, take it as told by your health care provider. Do not stop using the antibiotic even if you start to feel better. ? Eat a healthy diet. Some treatments might affect your appetite. ? Do not use any products that contain nicotine or tobacco. These products include cigarettes, chewing tobacco, and vaping devices, such as e-cigarettes. If you need help quitting, ask your health care provider. ? Consider joining a support group. This may help you learn to deal with the stress of having bladder cancer. ? Tell your cancer care team if you develop side effects. Your team may be able to recommend ways to get relief. ? Keep all follow-up visits. This is important. Where to find more information ? [place] [employer] (ACS): cancer.org ? National Cancer [place] (NCI): cancer.gov Contact a health care provider if: ? You have symptoms of a UTI. These include: ? Fever. ? Chills. ? Weakness. ? Muscle aches. ? Pain in your abdomen. ? Urge to urinate that is stronger and happens more often than normal. ? Burning in the bladder or urethra when you urinate. Get help right away if: ? There is blood in your urine. ? You cannot urinate. ? You have severe pain or other symptoms that do not go away. Summary ? Bladder cancer is a condition where tumors grow in the bladder. ? Diagnosis is based on your medical history, a physical exam, lab tests, imaging tests, and your symptoms. ? Your health care provider may recommend one or more types of treatment based on the stage of your cancer. ? Consider joining a support group. This may help you learn to deal with the stress of having bladder cancer. This information is not intended to replace advice given to you by your health care provider. Make sure you discuss any questions you have wi (more content not included)... Normal [facility] CALCULI, URINARYon 3 2,8 Dihydroxyadenine Normal [facility] Comment on above: Performed By: #### U A #### [facility] [address] [place] [address] Dr. Karen Pierce Ammonium Acid Urate Normal [facility] Comment on above: Performed By: #### U A #### [facility] [address] [place] [address] Dr. Karen Pierce Bilirubin Ql (U) Normal [facility] Comment on above: Performed By: #### U A #### [facility] [address] [address] [address] Karen Pierce Ca Oxalate Dihydrate Normal [facility] Comment on above: Performed By: #### U A #### [facility] [address] [place] [address] Dr. Karen Pierce CaHPO4 (Brushite) Normal [facility] Comment on above: Performed By: #### U A #### [facility] [address] [address] [address] Karen Pierce Calcium Bilirubinate Normal [facility] Comment on above: Performed By: #### U A #### [facility] [address] [address] [address] Karen Pierce Calcium Carbonate Normal [facility] Comment on above: Performed By: #### U A #### [facility] [address] [place] [address] Dr. Karen Pierce Calcium Oxalate Monohydrate 100 % Normal [facility] Comment on above: Performed By: #### U A #### [facility] [address] [address] [address] Karen Pierce Calcium Palmitate [facility] Comment on above: Performed By: #### U A #### [facility] [address] [address] [address] Karen Pierce Calcium Phosphate [facility] Comment on above: Performed By: #### U A #### [facility] [address] [address] [address] Karen Pierce Calcium Stearate [facility] Comment on above: Performed By: #### U A #### [facility] [address] [address] [address] Karen Pierce Carbonate Apatite [facility] Comment on above: Performed By: #### U A #### [facility] [address] [place] [address] Dr. Karen Pierce Cellular Material [facility] Comment on above: Performed By: #### U A #### [facility] [address] [address] [address] Karen Pierce Cholesterol [facility] Comment on above: Performed By: #### U A #### [facility] [address] [address] [address] Karen Pierce Color (U) Brown [facility] Comment on above: Performed By: #### U A #### [facility] [address] [place] [address] Dr. Karen Pierce Comment [facility] Comment on above: Performed By: #### U A #### [facility] [address] [place] [address] Dr. Karen Pierce Comment: Comment Normal [facility] Comment on above: Result Comment: Phys carmelo questions regarding Calculi Analysis contact [facility] at: [phone]. Performed By: #### U A #### [facility] [address] [place] [address] Dr. Karen Pierce Composition Comment [facility] Comment on above: Result Comment: Perc entage (Represents the % composition) Performed By: #### U A #### [facility] [address] [place] [address] Dr. Karen Pierce Cystine Normal [facility] Comment on above: Performed By: #### U A #### [facility] [address] [place] [address] Dr. Karen Pierce Disclaimer: Comment Normal [facility] Comment on above: Result Comment: This test was developed and its performance characteristics determined by [facility]. It has not been cleared or approved by the Food and Drug Administration. Performed By: #### U A #### [facility] [address] [place] [address] Dr. Karen Pierce Dried Blood [facility] Comment on above: Performed By: #### U A #### [facility] [address] [place] [address] Dr. Karen Pierce Drug or Metabolite Normal [facility] Comment on above: Performed By: #### U A #### [facility] [address] [place] [address] Dr. Karen Pierce Hydroxyapatite [facility] Comment on above: Performed By: #### U A #### [facility] [address] [place] [address] Dr. Karen Pierce Mg NH4 PO4 (Struvite) [facility] Comment on above: Performed By: #### U A #### [facility] [address] [place] [address] Dr. Karen Pierce MgHPO4 (Newberyite) [facility] Comment on above: Performed By: #### U A #### [facility] [address] [place] [address] Dr. Karen Pierce Other component(s) Normal [facility] Comment on above: Performed By: #### U A #### [facility] [address] [place] [address] Dr. Karen Pierce PDF . Normal [facility] Comment on above: Performed By: #### U A #### [facility] [address] [place] [address] Dr. Karen Pierce Photo Comment Normal [facility] Comment on above: Result Comment: Phot ograph will follow under a separate cover Performed By: #### U A #### [facility] [address] [address] [address] Karen Pierce Please note: Comment Normal [facility] Comment on above: Result Comment: Calc shirley report will follow via computer, mail or cook starch delivery. Performed By: #### U A #### [facility] [address] [address] [address] Karen Pierce Size 5x5 Normal [facility] Comment on above: Result Comment: Mult iple pieces received. Dimensions of the largest piece reported. Performed By: #### U A #### [facility] [address] [address] [address] Karen Pierce Sodium Acid Urate [facility] Comment on above: Performed By: #### U A #### [facility] [address] [place] [address] Dr. Karen Pierce Source Comment [facility] Comment on above: Result Comment: Urin evelin Bladder Performed By: #### U A #### [facility] [address] [address] [address] Karen Pierce Triamterene [facility] Comment on above: Performed By: #### U A #### [facility] [address] [address] [address] Karen Pierce Uric Acid [facility] Comment on above: Performed By: #### U A #### [facility] [address] [address] [address] Karen Pierce Uric Acid Dihydrate [facility] Comment on above: Performed By: #### U A #### [facility] [address] [address] [address] Karen Pierce Weight 158 mg [facility] Comment on above: Performed By: #### U A #### [facility] [address] [address] [address] Karen Pierce Xanthine [facility] Comment on above: Performed By: #### U A #### [facility] [address] [address] [address] Karen Pierce Pathology Noteon 09-17-2022 Pathology Note [id number] Normal [facility] ER URINE PROFILEon 3 Bilirubin Ql (U) Negative Normal NEGATIVE [facility] Comment on above: Performed By: #### U MICRO, ERUR #### [facility] [address] [place] [address] Dr. Karen Pierce Clarity (U) CLEAR Normal CLEAR [facility] Comment on above: Performed By: #### U MICRO, ERUR #### [facility] [address] [place] [address] Dr. Karen Pierce Color (U) YELLOW Normal YELLOW [facility] Comment on above: Performed By: #### U MICRO, ERUR #### [facility] [address] [place] [address] Dr. Karen Pierce ERUAHD A micrscopic examina tion will be performed if indicated. Normal [facility] Comment on above: Performed By: #### U MICRO, ERUR #### [facility] [address] [place] [address] Dr. Karen Pierce Glucose Ql (U) Negative Normal NEGATIVE [facility] Comment on above: Performed By: #### U MICRO, ERUR #### [facility] [address] [place] [address] Dr. Karen Pierce Hemoglobin Ql (U) LARGE Abnormal NEGATIVE [facility] Comment on above: Performed By: #### U MICRO, ERUR #### [facility] [address] [address] [address] Karen Pierce Ketones Ql (U) Negative Normal NEGATIVE [facility] Comment on above: Performed By: #### U MICRO, ERUR #### [facility] [address] [address] [address] Karen Pierce LEUKOCYTES LARGE Abnormal NEGATIVE [facility] Comment on above: Performed By: #### U MICRO, ERUR #### [facility] [address] [place] [address] Dr. Karen Pierce Nitrite Ql (U) Positive Abnormal NEGATIVE [facility] Comment on above: Performed By: #### U MICRO, ERUR #### [facility] [address] [place] [address] Dr. Karen Pierce pH (U) 5.5 [pH] Normal 5-9 [facility] Comment on above: Performed By: #### U MICRO, ERUR #### [facility] [address] [place] [address] Dr. Karen Pierce Protein (U) [Mass/Vol] 100 mg/dL Abnormal NEGAT RAJI/ TRACE [facility] Comment on above: Performed By: #### U MICRO, ERUR #### [facility] [facility] [address] [place] [address] Dr. Karen Pierce SPEC GRAVITY 1.020 Normal 1.005-<=1. 025 [facility] Comment on above: Performed By: #### U MICRO, ERUR #### [facility] [address] [place] [address] Dr. Karen Pierce UR MICRO IND INDICATED Normal [facility] Comment on above: Performed By: #### U MICRO, ERUR #### [facility] [address] [place] [address] Dr. Karen Pierce Urobilinogen Qn (U) 1.0 {Tonio'U}/dL Normal 0.2 - 1. 0 [facility] Comment on above: Performed By: #### U MICRO, ERUR #### [facility] [address] [place] [address] Dr. Karen Pierce URINE MICROSCOPIC ONLYon BACTERIA SMALL Abnormal NONE SEEN [facility] Comment on above: Performed By: #### U MICRO, ERUR #### [facility] [address] [place] [address] Dr. Karen Pierce Bacteria identified Cx Nom (U) INDICATED Normal [facility] Comment on above: Performed By: #### U MICRO, ERUR #### [facility] [address] [place] [address] Dr. Karen Pierce CAST NONE SEEN Normal NONE SEEN [facility] Comment on above: Performed By: #### U MICRO, ERUR #### [facility] [address] [address] [address] Karen Pierce Crystals LM Nom (Urine sed) NONE SEEN Normal NONE SEEN [facility] Comment on above: Performed By: #### U MICRO, ERUR #### [facility] [address] [place] [address] Dr. Karen Pierce Epithelial cells LM Ql (Urine sed) NONE SEEN Normal NONE SEEN /RARE [facility] Comment on above: Performed By: #### U MICRO, ERUR #### [facility] [address] [place] [address] Dr. Karen Pierce MUCOUS NONE SEEN Normal NONE SEEN [facility] Comment on above: Performed By: #### U MICRO, ERUR #### [facility] [address] [place] [address] Dr. Karen Pierce RBC (U) [#/Vol] /uL Abnormal 0-2 [facility] Comment on above: Performed By: #### U MICRO, ERUR #### [facility] [address] [place] [address] Dr. Karen Pierce WBC 50-75 Abnormal NONE SEEN [facility] Comment on above: Performed By: #### U MICRO, ERUR #### [facility] [address] [place] [address] Dr. Karen Pierce Operative Reporton Operative Report [id number]#1.00CD:127 Normal [facility] Consultation Noteon 09-10-19 23 Consultation Note [id number]:127 Normal [facility] Consultation Note [id number]#1.00CD:127 Normal [facility] Consultation Note [id number]#1.00CD:127 Normal [facility] Lab Reportson 09-09-2022 Lab Reports [id number]#[id number]:127 Normal [facility] RAD - MISCon 09-09-2022 RAD - MISC [id number]#1.00CD:127 Normal [facility] PTH INTACTon 09-05-2022 PTH, Intact 38 pg/mL Normal 15-65 [facility] Comment on above: Performed By: #### P THINT #### [facility] [address] [place] [address] Dr. Karen Pierce FERRITINon 09-04-2022 Ferritin [Mass/Vol] 49.0 ng/mL Normal 26.0-388.0 [facility] Comment on above: Performed By: #### U RTPCR #### [facility] [address] [place] [address] Dr. Karen Pierce IRON AND TIBCon 09-04-2022 % SATURATION 10.3 % Normal [facility] Comment on above: Performed By: #### U RTPCR #### [facility] [address] [place] [address] Dr. Karen Pierce Iron [Mass/Vol] 33.0 ug/dL Critically low 65.0-175.0 [facility] Comment on above: Performed By: #### U RTPCR #### [facility] [address] [place] [address] Dr. Karen Pierce TIBC DIRECT 319.0 ug/dL Normal 250.0-450. 0 [facility] Comment on above: Performed By: #### U RTPCR #### [facility] [address] [place] [address] Dr. Karen Pierce UA RANDOMon 09-04-2022 Bilirubin Ql (U) Negative Normal NEGATIVE [facility] Comment on above: Performed By: #### U A #### [facility] [address] [place] [address] Dr. Karen Pierce Clarity (U) CLEAR Normal CLEAR [facility] Comment on above: Performed By: #### U A #### [facility] [address] [place] [address] Dr. Karen Pierce Color (U) LT. YELLOW Normal YELLOW [facility] Comment on above: Performed By: #### U A #### [facility] [address] [place] [address] Dr. Karen Pierce Glucose Ql (U) Negative Normal NEGATIVE [facility] Comment on above: Performed By: #### U A #### [facility] [address] [place] [address] Dr. Karen Pierce Hemoglobin Ql (U) MODERATE Abnormal NEGATIVE [facility] Comment on above: Performed By: #### U A #### [facility] [address] [place] [address] Dr. Karen Pierce Ketones Ql (U) Negative Normal NEGATIVE [facility] Comment on above: Performed By: #### U A #### [facility] [address] [place] [address] Dr. Karen Pierce LEUKOCYTES LARGE Abnormal NEGATIVE [facility] Comment on above: Performed By: #### U A #### [facility] [address] [place] [address] Dr. Karen Pierce Nitrite Ql (U) Positive Abnormal NEGATIVE [facility] Comment on above: Performed By: #### U A #### [facility] [address] [place] [address] Dr. Karen Pierce pH (U) 6.5 [pH] Normal 5-9 [facility] Comment on above: Performed By: #### U A #### [facility] [address] [place] [address] Dr. Karen Pierce SPEC GRAVITY 1.015 Normal 1.005-<=1. 025 [facility] Comment on above: Performed By: #### U A #### [facility] [address] [place] [address] Dr. Karen Pierce UA PROTEIN 30 mg/dl Abnormal NEGATIVE/ TRACE [facility] Comment on above: Performed By: #### U A #### [facility] [address] [place] [address] Dr. Karen Pierce Urobilinogen Qn (U) 0.2 {Tonio'U}/dL Normal 0.2 - 1. 0 [facility] Comment on above: Performed By: #### U A #### [facility] [address] [place] [address] Dr. Karen Pierce URINE T PROTEIN CREAT RATIOo n 09-04-2022 Protein (U) [Mass/Vol] 65.2 mg/dL Critically high <=12.0 [facility] Comment on above: Performed By: #### U RTPCR #### [facility] [address] [place] [address] Dr. Karen Pierce UR PROT CREAT RAT 0.76 Normal [facility] Comment on above: Performed By: #### U RTPCR #### [facility] [address] [place] [address] Dr. Karen Pierce URINE CREAT 85.95 mg/dL Normal 20.00-300. 00 [facility] Comment on above: Performed By: #### U RTPCR #### [facility] [address] [place] [address] Dr. Karen Pierce VIT B12 AND FOLATEon 023 Cobalamin (Vitamin B12) [Mass/Vol] 279.0 pg/mL Normal 193.0-986. 0 [facility] Comment on above: Performed By: #### U RTPCR #### [facility] [address] [place] [address] Dr. Karen Pierce FOLATE 17.80 ng/mL Normal 8.60-58.90 [facility] Comment on above: Performed By: #### U RTPCR #### [facility] [address] [place] [address] Dr. Karen Pierce VITAMIN D 25 OHon 09-04-2022 VIT D 25-OH 29.9 ng/mL Normal [facility] Comment on above: Performed By: #### U RTPCR #### [facility] [address] [place] [address] Dr. Karen Pierce VIT D RANGES SEE BELOW Normal [facility] Comment on above: Result Comment: <20 ng/mL Vit D deficient 20 - <30 ng/mL Vit D insufficient 30 - 100 ng/mL Vit D sufficient >100 ng/mL Potential Toxicity Performed By: #### U RTPCR #### [facility] [address] [address] [address] Karen Pierce CBC AUTO DIFFon 09-02-2022 BASO # 0.1 103/ul Normal 0.0-0.1 [facility] Comment on above: Performed By: #### C BC #### [facility] [address] [address] [address] Karen Pierce Basophils/100 WBC (Bld) 0.7 % Normal 0.2-2.0 [facility] Comment on above: Performed By: #### C BC #### [facility] [address] [place] [address] Dr. Karen Pierce EO # 0.2 103/ul Normal 0.0-0.7 [facility] Comment on above: Performed By: #### C BC #### [facility] [address] [place] [address] Dr. Karen Pierce Eosinophils/100 WBC (Bld) 2.6 % Normal 0.9-7.0 [facility] Comment on above: Performed By: #### C BC #### [facility] [address] [place] [address] Dr. Karen Pierce Erythrocyte distribution width (RBC) [Ratio] 13.8 % Normal 11.0-15.0 [facility] Comment on above: Performed By: #### C BC #### [facility] [address] [place] [address] Dr. Karen Pierce Hematocrit (Bld) [Volume fraction] 38.9 % Critically low 42.0-54.0 [facility] Comment on above: Performed By: #### C BC #### [facility] [address] [place] [address] Dr. Karen Pierce Hemoglobin (Bld) [Mass/Vol] 12.3 g/dL Critically low 14.0-18.0 [facility] Comment on above: Performed By: #### C BC #### [facility] [address] [place] [address] Dr. Karen Pierce IG # 0.01 10e3/ul Normal 0.00-0.03 [facility] Comment on above: Performed By: #### C BC #### [facility] [address] [place] [address] Dr. Karen Pierce IG % 0.1 % Normal 0.0-0.5 [facility] Comment on above: Performed By: #### C BC #### [facility] [address] [place] [address] Dr. Karen Pierce LYMPH # 1.9 103/ul Normal 1.2-3.8 [facility] Comment on above: Performed By: #### C BC #### [facility] [address] [place] [address] Dr. Karen Pierce Lymphocytes/100 WBC (Bld) 27.0 % Normal 20.5-60.0 [facility] Comment on above: Performed By: #### C BC #### [facility] [address] [place] [address] Dr. Karen Pierce MANUAL DIFF REQ NO Normal [facility] Comment on above: Performed By: #### C BC #### [facility] [address] [place] [address] Dr. Karen Pierce MCH (RBC) [Entitic mass] 27.8 pg Normal 25.9-34.0 [facility] Comment on above: Performed By: #### C BC #### [facility] [address] [place] [address] Dr. Karen Pierce MCHC (RBC) [Mass/Vol] 31.6 g/dL Normal 29.9-35.2 [facility] Comment on above: Performed By: #### C BC #### [facility] [address] [place] [address] Dr. Karen Pierce MCV (RBC) [Entitic vol] 87.8 fL Normal 80.0-94.0 [facility] Comment on above: Performed By: #### C BC #### [facility] [address] [place] [address] Dr. Karen Pierce MONO # 0.6 103/ul Normal 0.3-0.8 [facility] Comment on above: Performed By: #### C BC #### [facility] [address] [place] [address] Dr. Karen Pierce Monocytes/100 WBC (Bld) 8.8 % Normal 1.7-12.0 [facility] Comment on above: Performed By: #### C BC #### [facility] [address] [place] [address] Dr. Karen Pierce NEUT # 4.4 103/ul Normal 1.4-6.5 [facility] Comment on above: Performed By: #### C BC #### [facility] [address] [place] [address] Dr. Karen Pierce Neutrophils/100 WBC (Bld) 60.8 % Normal 43.0-75.0 [facility] Comment on above: Performed By: #### C BC #### [facility] [address] [place] [address] Dr. Karen iPerce Platelet mean volume (Bld) [Entitic vol] 9.9 fL Normal 9.5-13.5 [facility] Comment on above: Performed By: #### C BC #### [facility] [address] [place] [address] Dr. Karen Pierce PLT 181 103/ul Normal 150-450 [facility] Comment on above: Performed By: #### C BC #### [facility] [address] [place] [address] Dr. Karen Pierce RBC 4.43 106/ul Critically low 4.70-6.10 [facility] Comment on above: Performed By: #### C BC #### [facility] [address] [place] [address] Dr. Karen Pierce WBC 7.2 103/ul Normal 4.0-11.0 [facility] Comment on above: Performed By: #### C BC #### [facility] [address] [place] [address] Dr. Karen Pierce MAGNESIUMon 09-02-2022 Magnesium [Mass/Vol] 2.2 mg/dL Normal 1.8-2.4 [facility] Comment on above: Performed By: #### U A #### [facility] [address] [place] [address] Dr. Karen Pierce PHOSPHORUSon 09-02-2022 Phosphate [Mass/Vol] 2.9 mg/dL Normal 2.6-4.7 [facility] Comment on above: Performed By: #### U A #### [facility] [address] [place] [address] Dr. Karen Pierce PROF 14(COMP METB)on 023 Albumin [Mass/Vol] 3.5 g/dL Normal 3.4-5.0 [facility] Comment on above: Performed By: #### P THINT #### [facility] [address] [place] [address] Dr. aKren Pierce Albumin/Globulin [Mass ratio] 1.0 {ratio} Normal [facility] Comment on above: Performed By: #### P THINT #### [facility] [address] [place] [address] Dr. Karen Pierce ALP [Catalytic activity/Vol] 86 U/L Normal 46-116 [facility] Comment on above: Performed By: #### P THINT #### [facility] [address] [place] [address] Dr. Karen Pierce ALT [Catalytic activity/Vol] 17 U/L Normal 16-63 [facility] Comment on above: Performed By: #### P THINT #### [facility] [address] [place] [address] Dr. Karen Pierce Anion gap [Moles/Vol] 13.0 mmol/L Normal [facility] Comment on above: Performed By: #### P THINT #### [facility] [address] [place] [address] Dr. Karen Pierce AST [Catalytic activity/Vol] 14 U/L Critically low 15-37 [facility] Comment on above: Performed By: #### P THINT #### [facility] [address] [place] [address] Dr. Karen Pierce Bilirubin [Mass/Vol] 0.3 mg/dL Normal 0.2-1.0 [facility] Comment on above: Performed By: #### P THINT #### [facility] [address] [address] [address] Karen Pierec CO2 [Moles/Vol] 27.6 mmol/L Normal 21.0-32.0 [facility] Comment on above: Performed By: #### P THINT #### [facility] [address] [address] [address] Karen Pierce Creatinine [Mass/Vol] 1.48 mg/dL Critically high 0.70-1.30 [facility] Comment on above: Performed By: #### P THINT #### [facility] [address] [address] [address] Karen Pierce EGFR-AF VIET[place] 56 mL/min/1.73m2 Critically low >=60 [facility] Comment on above: Performed By: #### P THINT #### [facility] [address] [place] [address] Dr. Karen Pierce EGFR-NON AF [place] 46 mL/min/1.73m2 Critically low >=60 [facility] Comment on above: Performed By: #### P THINT #### [facility] [address] [address] [address] Karen Pierce Globulin (S) [Mass/Vol] 3.6 g/dL Normal [facility] Comment on above: Performed By: #### P THINT #### [facility] [address] [place] [address] Dr. Karen Pierce Glucose [Mass/Vol] 105 mg/dL Normal 74-106 [facility] Comment on above: Performed By: #### P THINT #### [facility] [address] [place] [address] Dr. Karen Pierce Protein [Mass/Vol] 7.1 g/dL Normal 6.4-8.2 [facility] Comment on above: Performed By: #### P THINT #### [facility] [address] [place] [address] Dr. Karen Pierce Sodium [Moles/Vol] 142 mmol/L Normal 136-145 [facility] Comment on above: Performed By: #### P THINT #### [facility] [address] [place] [address] Dr. Karen Pierce Urea nitrogen/Creatinine [Mass ratio] 16.2 mg/mg Normal [facility] Comment on above: Performed By: #### P THINT #### [facility] [address] [place] [address] Dr. Karen Pierce PROF CHEM 8 (BAS METB)on Anion gap [Moles/Vol] 11.1 mmol/L Normal [facility] Comment on above: Performed By: #### U A #### [facility] [address] [place] [address] Dr. Karen Pierce Calcium [Mass/Vol] 8.7 mg/dL Normal 8.5-10.1 [facility] Comment on above: Performed By: #### U A #### [facility] [address] [place] [address] Dr. Karen Pierce Performed By: #### P THINT #### [facility] [address] [place] [address] Dr. Karen Pierce Chloride [Moles/Vol] 106 mmol/L Normal 98-107 [facility] Comment on above: Performed By: #### U A #### [facility] [address] [place] [address] Dr. Karen Pierce Performed By: #### P THINT #### [facility] [address] [place] [address] Dr. Karen Pierce CO2 [Moles/Vol] 28.5 mmol/L Normal 21.0-32.0 [facility] Comment on above: Performed By: #### U A #### [facility] [address] [place] [address] Dr. Karen Pierce Creatinine [Mass/Vol] 1.44 mg/dL Critically high 0.70-1.30 [facility] Comment on above: Performed By: #### U A #### [facility] [address] [place] [address] Dr. Karen Pierce EGFR-AF VIET[place]ESE 58 mL/min/1.73m2 Critically low >=60 [facility] Comment on above: Performed By: #### U A #### [facility] [address] [address] [address] Karen Pierce EGFR-NON AF VI[place]ESE 47 mL/min/1.73m2 Critically low >=60 [facility] Comment on above: Performed By: #### U A #### [facility] [address] [address] [address] Karen Pierce Glucose [Mass/Vol] 104 mg/dL Normal 74-106 [facility] Comment on above: Performed By: #### U A #### [facility] [address] [place] [address] Dr. Karen Pierce Potassium [Moles/Vol] 4.6 mmol/L Normal 3.5-5.1 [facility] Comment on above: Performed By: #### U A #### [facility] [address] [place] [address] Dr. Karen Pierce Performed By: #### P THINT #### [facility] [address] [place] [address] Dr. Karen Pierce Sodium [Moles/Vol] 141 mmol/L Normal 136-145 [facility] Comment on above: Performed By: #### U A #### [facility] [address] [place] [address] Dr. Karen Pierce Urea nitrogen [Mass/Vol] 24.0 mg/dL Critically high 7.0-18.0 [facility] Comment on above: Performed By: #### U A #### [facility] [address] [place] [address] Dr. Karen Pierce Performed By: #### P THINT #### [facility] [address] [place] [address] Dr. Karen Pierce Urea nitrogen/Creatinine [Mass ratio] 16.7 mg/mg Normal [facility] Comment on above: Performed By: #### U A #### [facility] [address] [place] [address] Dr. Karen Pierce PROTIMEon 09-02-2022 INR Coag (PPP) [Relative time] 1.01 {INR} Normal [facility] Comment on above: Performed By: #### P TT, PT #### [facility] [address] [place] [address] Dr. Karen Pierce INR GUIDELINES SEE BELOW Normal [facility] Comment on above: Result Comment: EMY RED INR: 2.0 - 3.0 CONDITIONS NOT LISTED BELOW 2.5 - 3.5 FOR PROSTHETIC HEART VALVE REPLACEMENT 2.5 - 3.5 RECURRENT THROMBOSIS Performed By: #### P TT, PT #### [facility] [address] [place] [address] Dr. Karen Pierce PT Coag (PPP) [Time] 10.7 s Normal 9.0-11.6 [facility] Comment on above: Performed By: #### P TT, PT #### [facility] [address] [place] [address] Dr. Karen Pierce PTTon 09-02-2022 aPTT Coag (Bld) [Time] 28.2 s Normal 22.3-36.2 [facility] Comment on above: Performed By: #### P TT, PT #### [facility] [address] [place] [address] Dr. Karen Pierce URIC ACID SERUMon 09-02-2022 Urate [Mass/Vol] 4.8 mg/dL Normal 3.5-7.2 [facility] Comment on above: Performed By: #### P THINT #### [facility] [address] [place] [address] Dr. Karen Pierce Consent for Procedure/Surger yon 08-27-2022 Consent for Procedure/Surgery [id number]#1.00CD:127 Normal [facility] Formson 08-27-2022 Forms [id number]:127 Normal [facility] CT angio abdomen pelvison [place] [address] CT Scan Report Signed Patient: Alex Anderson MR#: [id number] 36 : 1945 Acct:[id number] Age/Sex: 76 / M ADM Date: 08/16/22 Loc: CT Room: Type: [facility] Attending Dr: Margarito Valentine MD Copies to: Margarito Valentine MD Ordering Provider: Margarito Valentine MD Date of Service: 08/16/22 CT/CT angio abdomen pelvis: I71.4 CT angio abdomen pelvis 08/16/2022 7:39 AM SIGNS AND SYMPTOMS: Follow-up abdominal aortic aneurysm status post repair TECHNIQUE: Multidetector ct axial images of the abdomen and pelvis were obtained with IV contrast. Multiplanar and 3-D reformats were performed and reviewed to further define anatomy and possible pathology. CT was performed with one or more of the following dose reduction techniques: Automated exposure control, adjustment of the mA and/or kV according to patient size, or use of iterative reconstruction technique. COMPARISON: 06/12/2022 FINDINGS: Lower Chest: There is mild atelectasis in the lung bases. ABDOMEN: Liver: There are multiple areas of hypoattenuation in the liver parenchyma which are similar to that seen on the prior exam. Bile Ducts: Normal caliber. Gallbladder: No calcified gallstones. Normal caliber wall. Pancreas: Within normal limits. Spleen: Within normal limits. Adrenals: Within normal limits. Kidneys: Similar cysts are noted with intermediate attenuation probably representing complex/hemorrhagic cyst on the left. These are unchanged. There is no hydronephrosis. Pelvis: Reproductive Organs: No pelvic masses. Ureters: Within normal limits. Bladder: There is a Zapien catheter in the bladder lumen similar to the prior exam. The bladder wall is thickened which may be secondary to bladder decompression. Radiodense stones are present in the bladder lumen. The stone on the left is new.. Bowel: Normal caliber. Mesenteric Lymph Nodes: No enlarged mesenteric lymph nodes. Peritoneum: No ascites or free air, no fluid collection. Vessels: There is a similar 8 cm infrarenal abdominal aortic aneurysm. There has been interval aortobiiliac stent repair. There is no evidence of endoleak. Atherosclerotic changes are noted in the abdominal aorta and its branches. Retroperitoneum: Within normal limits. Abdominal Wall: Within normal limits. Bones: Degenerative changes are noted in the thoracolumbar spine, hips, and sacral iliac joints. CT/CT angio abdomen pelvis IMPRESSION: There is a similar 8 cm infrarenal abdominal aortic aneurysm. There has been interval aortobiiliac stent repair. There is no evidence of endoleak. Additional chronic findings are redemonstrated, as above. Impression dictated by: Corky Max M.D.08/16/2022 12:04 PM Dictation Location: [place] [address] Transcribed By: LIONEL 08/16/22 1204 Dictated By: Corky Max II, MD 08/16/22 1154 Signed By: 08/16/22 1204 [facility] Creatinine (Bld) [Mass/Vol]O rdered By: Margarito Valentine on 08-16-2022 Creatinine [Mass/Vol] 1.5 mg/dL 0.6-1.3 [facility] Comment on above: ER/ESD physician is notified/shown all ISTAT results.Critical values may be confirmed by laboratory testing ifdeemed necessary by ER attending doctor. UroVysion Fish and Urine Cyt o ([facility])on 08-07-2022 UVFISH & UC Diagnosis Info Invalid Interpretation Code [facility] Comment on above: Result Comment: A:Ur ine,Urine:Bladder Wash Diagnosis Summary - No evidence of high grade urothelial carcinoma identified. Adequate cellularity for evaluation. Diagnosis Summary - The UroVysion FISH study detected normal copy numbers for chromosomes 3, 7, 17, and 9p21. 135 cells were analyzed in this evaluation. No evidence of aneuploidy for chromosomes 3, 7, or 17 or deletion of the 9p21 locus was found in cells present in this specimen. This test does not rule out the possibility of a low grade non-invasive papillary urothelial carcinoma. These findings should be correlated with cytology and cystoscopy results.* Microscopic Notes - Microscopic Notes - Abnormal cells 9p21 deletions: Abnormal cells aneploid events: Total cells analyzed: 135 Hematuria: Gross Description Site ID:A color No Color fixative Alcohol Received 90 mls of clear no color fluid with the patient's name and, Urine on the vial. Electronically signed by : on: 08/07/2022 17:56:58 Performed By: #### 1 [id number] ####[facility] [place] [id number] Consent for Procedure/Surger yon 07-31-2022 Consent for Procedure/Surgery [id number] Normal Ciro [facility] Patient Educationon 08-01-19 Patient Education Oncology Transurethral Resection of Bladder Tumor Transurethral resection of a bladder tumor is the removal (resection) of a cancerous growth (tumor) on the inside wall of the bladder. The bladder is the organ that holds urine. The tumor is removed through the tube that carries urine out of the body (urethra). In a transurethral resection, a thin telescope with a light, a tiny camera, and an electric cutting edge (resectoscope) is passed through the urethra. In men, the opening of the urethra is at the end of the penis. In women, it is just above the opening of the vagina. Tell a health care provider about: ? Any allergies you have. ? All medicines you are taking, including vitamins, herbs, eye drops, creams, and kdmq-alj-tnfmvud medicines. ? Any problems you or family members have had with anesthetic medicines. ? Any blood disorders you have. ? Any surgeries you have had. ? Any medical conditions you have. ? Any recent urinary tract infections you have had. ? Whether you are or may be . What are the risks? Generally, this is a safe procedure. However, problems may occur, including: ? Infection. ? Bleeding. ? Allergic reactions to medicines. ? Damage to nearby structures or organs, such as: ? The urethra. ? The tubes that drain urine from the kidneys into the bladder (ureters). ? Pain and burning during urination. ? Difficulty urinating due to partial blockage of the urethra. ? Inability to urinate (urinary retention). What happens before the procedure? Staying hydrated Follow instructions from your health care provider about hydration, which may include: ? Up to 2 hours before the procedure ? you may continue to drink clear liquids, such as water, clear fruit juice, black coffee, and plain tea. Eating and drinking restrictions Follow instructions from your health care provider about eating and drinking, which may include: ? 8 hours before the procedure ? stop eating heavy meals or foods, such as meat, fried foods, or fatty foods. ? 6 hours before the procedure ? stop eating light meals or foods, such as toast or cereal. ? 6 hours before the procedure ? stop drinking milk or drinks that contain milk. ? 2 hours before the procedure ? stop drinking clear liquids. Medicines Ask your health care provider about: ? Changing or stopping your regular medicines. This is especially important if you are taking diabetes medicines or blood thinners. ? Taking medicines such as aspirin and ibuprofen. These medicines can thin your blood. Do not take these medicines unless your health care provider tells you to take them. ? Taking lxxm-quh-tblxklj medicines, vitamins, herbs, and supplements. Tests You may have exams or tests, including: ? Physical exam. ? Blood tests. ? Urine tests. ? Electrocardiogram (ECG). This test measures the electrical activity of the heart. General instructions ? Plan to have someone take you home from the hospital or clinic. ? Ask your health care provider how your surgical site will be marked or identified. ? Ask your health care provider what steps will be taken to help prevent infection. These may include: ? Washing skin with a germ-killing soap. ? Taking antibiotic medicine. What happens during the procedure? ? An IV will be inserted into one of your veins. ? You will be given one or more of the following: ? A medicine to help you relax (sedative). ? A medicine to make you fall asleep (general anesthetic). ? A medicine that is injected into your spine to numb the area below and slightly above the injection site (spinal anesthetic). ? Your legs will be placed in foot rests (stirrups) so that your legs are apart and your knees are bent. ? The resectoscope will be passed through your urethra and into your bladder. ? The part of your bladder that is affected by the tumor will be resected using the cutting edge of the resectoscope. ? The resectoscope will be removed. ? A thin, flexible tube (catheter) will be passed through your urethra and into your bladder. The catheter will drain urine into a bag outside of your body. ? Fluid may be passed through the catheter to keep the catheter open. The procedure may vary among health care providers and hospitals. What happens after the procedure? ? Your blood pressure, heart rate, breathing rate, and blood oxygen level will be monitored until you leave the hospital or clinic. ? You may continue to receive fluids and medicines through an IV. ? You will have some pain. You will be given pain medicine to relieve pain. ? You will have a catheter to drain your urine. ? You will have blood in your urine. Your catheter may be kept in until your urine is clear. ? The amount of urine will be monitored. If necessary, your bladder may be rinsed out (irrigated) by passing fluid through your catheter. ? You will be encouraged to walk around (more content not included)... Normal [facility] UroVysion Fish and Urine Cyt o ([facility])on 07-31-2022 [facility] Method of Extraction Bladder Wash Normal [facility] Comment on above: Performed By: #### 1 [id number] ####[facility] [address] [place] [address] [facility] Number of Jars 1 Invalid Interpretation Code [facility] Comment on above: Performed By: #### 1 [id number] ####[facility] [address] [address] [facility] Specimen Bladder Wash Normal [facility] Comment on above: Performed By: #### 1 [id number] ####[facility] [address] [place] [address] [facility] Type of Service Technical Only Normal [facility] Comment on above: Performed By: #### 1 [id number] ####[facility] [address] [place] [address] Urology Office/Clinic Noteon 07-31-2022 Urology Office/Clinic Note Chief Complaint Cysto HPI Staff Cysto. Abx taken. History of Present Illness Tests reviewed: OV note. I have reviewed the previous health record information and history for this patient from [facility]. I have reviewed and verified the staff HPI to be accurate for this encounter. There have been no associated fever, chills, flank pain, or blood in the urine. Denies any urinary infections since last encounter. Review of Systems PHQ Score Initial Depression Screen Score: 0 ROS - Provider Constitutional: denies weight loss, denies hot flashes. Eyes: denies eye problems. Gastrointestinal: denies nausea, denies vomiting. Cardiovascular: denies chest pain or angina. Integumentary: no dryness Musculoskeletal: denies musculoskeletal symptoms. ENMT: denies otolaryngeal symptoms. Respiratory: no shortness of breath. Heme/Lymph: denies easy bleeding tendency, denies easy bruising tendency. Psychiatric: no confusion, no anxiety. Genitourinary: See HPI. Physical Exam Vitals & Measurements HR: 70(Peripheral) RR: 16 BP: 130/89 HT: 74 in HT: 187 cm WT: 93.5 kg WT: 205.7 lb BMI: 26.74 General Appearance: alert, no distress, well nourished, well developed male. Genitourinary: normal scrotum, normal testes, normal urethra, normal epididymis, normal vas deferens/spermatic cord. Flank Pain: none. Bladder: nonpalpable. Procedure Operative Information Anesthesia Type: Local Procedure: Local Cystoscopy Complications: None Surgical risks, benefits, details of the procedure have been explained to the patient. Full informed consent has been obtained. Intraoperative Information Prepped: Patient is brought back to the endoscopy suite. Patient is placed in supine position. Patient prepped in the usual fashion with Betadine solution. 2% Xylocaine Jelly is placed per Urethra. After waiting several minutes, the Cystoscope is introduced. The Urethra is: Normal The Prostatic Urethra is: _Trilobar obstruction. 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 One 0.5 cm stone in the bladder. Trabeculated: Severe (3), deep diverticuli diffusely. The Ureteral orifices: Show efflux of clear urine Specimens Removed: None Removal: Cystoscope is removed. The patient tolerated it well. Postoperative Information Patient is discharged home with antibiotic coverage. Follow up arranged. Assessment/Plan 1. Bladder mass (N32.89: Other specified disorders of bladder) Current smoker, 1 PPD x 50+ yrs. Brother treated for bladder cancer in his 60s. CT 05/16/22 shows 2.3 x 2.3 x 1.9 cm hyperdense mass adjacent the left lateral anterior wall and roof of the bladder. Pt had IO cysto today for bladder mass eval, prostate obstruction, and bladder stones without complications. Pt took prophylactic abx prior to procedure. Will send bladder wash specimen for FISH/cytol and call pt if positive. 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 One 0.5 cm stone in the bladder. Trabeculated: Severe (3), deep diverticuli diffusely. Discussed findings with pt and . Will hold off on tx until #6 is resolved. The procedure risks, benefits, details, and treatment alternatives of a TURBT have been discussed with the patient. These include bleeding -- sometimes to the point of hemorrhaging, infection, risk of bladder perforation, recurrence of bladder tumor in 60-70% of patients, need for indwelling catheter for a variable amount of time, as well as the rare risk of needing an open operation to repair the bladder, among others. Additional therapy as well as follow-up bladder evaluation will most likely be required. 2. Urinary retention (R33.9: Retention of urine, unspecified) Two 5 mm bladder stones noted on CT 05/16/22. Multiple large diverticula noted as well. Currently has zapien placed during hospital admission. notes do not mention PVR prior to placement. Does report some worsening BPH sx over the past few years. Pt does have Home Health & would prefer they change zapien. he will need to have a chronic zapien due to ngb. Zapien changed IO today without complications. Zapien to remain in place for now. 3. Acute kidney failure (N17.9: Acute kidney failure, unspecified) Admitted 05/16/22 w BUN/Cr 129, 8.99 after 2 weeks severe diarrhea and decreased po intake. Baseline BUN/Cr 21, 1.4. Zapien placed during admission. Neprho mentioned urine showed FENa 3.98 mg/dL suggestive of possible ATN vs obstructive uropathy. Clinically pt was volume depleted, had significant proteinuria, and has significant drop of Exhibit Cleaner after zapien insertion (1.69 on 05/21) 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 No recent labs (since d/c from hospital). 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 Ureters insert in atypical locations. 5. Renal lesion (N28.9: Disorder of k (more content not included)... Normal [facility] Comment on above: Result Comment: Elec tronically Signed By: ARLENE CASILLAS, Katia Fall.br\Date and Time Signed: 07/31/22 08:07 EST Creatinine (Bld) [Mass/Vol]O rdered By: Heather Schwab on 07-24-2022 Creatinine [Mass/Vol] 1.6 mg/dL 0.6-1.3 [facility] Comment on above: ER/ESD physician is notified/shown all ISTAT results.Critical values may be confirmed by laboratory testing ifdeemed necessary by ER attending doctor. ISTAT XRay CREon 07-24-2022 Creatinine [Mass/Vol] 1.6 mg/dL High 0.6-1.3 [facility] Comment on above: Result Comment: ER/E SD physician is notified/shown all ISTAT results. Critical values may be confirmed by laboratory testing if deemed necessary by ER attending doctor. Performed By: #### I SCRE #### [address] Point of Care testing , ISTAT GFR ( 51 [facility] Comment on above: Result Comment: GFR estimated reference range: According to KDOQI guidelines, <60 ml/min/1.73m2 is sufficient to diagnose a patient with chronic kidney disease. PERFORMED BY: [place] [address] PATHOLOGIST DEVELOPMENT MECHANIC OREN OWEN M.D. Performed By: #### I SCRE #### [address] Point of Care testing , ISTAT GFR (Non- Am 42 [facility] Comment on above: Performed By: #### I SCRE #### [address] Point of Care testing , No Panel InformationOrdered By: Heather Schwab on 07-24-2022 POC Estimated GFR [address] [place] [address] Comment on above: GFR estimated refere nce range: According to KDOQI guidelines, <60 ml/min/1.73m2 is sufficient to diagnose a patient with chronic kidney disease. POC Estimated GFR Non- Amer 42 [facility] Blood activated clotting lacho e by coagulation assayOrdered By: Margarito Valentine on 07-02-2022 ACT Coag (Bld) 215 s 90-139 [facility] Comment on above: Reference Range: 90- 139 (Non-heparinized) Basophils Auto (Bld) [#/Vol] Ordered By: Margarito Valentine on 06-21-2022 Basophils (Bld) [#/Vol] 0.1 10*3/uL 0.0-0.2 [facility] Basophils/100 WBC Auto (Bld) Ordered By: Margarito Valentine on 06-21-2022 Basophils/100 WBC (Bld) 0.9 % . [facility] Creatinine and Glomerular fi ltration rate.predicted panel (S/P/Bld)Ordered By: Margarito Valentine on 06-21-2022 Creatinine [Mass/Vol] 1.24 mg/dL 0.64-1.27 [facility] Eosinophils Auto (Bld) [#/Vo l]Ordered By: Margarito Valentine on 06-21-2022 Eosinophils (Bld) [#/Vol] 0.2 10*3/uL 0.0-0.45 [facility] Eosinophils/100 WBC Auto (Bl d)Ordered By: Margarito Valentine on 06-21-2022 Eosinophils/100 WBC (Bld) 2.5 % . [facility] Erythrocyte distribution wid th Auto (RBC) [Ratio]Ordered By: Margarito Valentine on 06-21-2022 Erythrocyte distribution width (RBC) [Ratio] 18.0 % 12.0-14.8 [facility] Estimated glomerular filtrat ion rate (GFR) non- AmericanOrdered By: Margarito Valentine on 06-21-2022 GFR/1.73 sq M.predicted among non-blacks MDRD (S/P/Bld) [Vol rate/Area] 56 mL/Min [facility] Hematocrit Auto (Bld) [Volum e fraction]Ordered By: Margarito Valentine on 06-21-2022 Hematocrit (Bld) [Volume fraction] 37.7 % 38.8-50.0 [facility] Hemoglobin [Mass/volume] in BloodOrdered By: Margarito Valentine on 06-21-2022 Hemoglobin (Bld) [Mass/Vol] 12.3 g/dL 13.0-17.0 [facility] Leukocytes [#/volume] correc phil for nucleated erythrocytes in Blood by Automated counOrdered By: Margarito Valentine on 06-21-2022 WBC corrected for nucl RBC Auto (Bld) [#/Vol] 7.1 10*3/uL 4.1-10.5 [facility] Lymphocytes Auto (Bld) [#/Vo l]Ordered By: Margarito Valentine on 06-21-2022 Lymphocytes (Bld) [#/Vol] 1.3 10*3/uL 1.00-4.8 [facility] Lymphocytes/100 WBC Auto (Bl d)Ordered By: Margarito Valentine on 06-21-2022 Lymphocytes/100 WBC (Bld) 18.7 % . [facility] MCH Auto (RBC) [Entitic mass ]Ordered By: Margarito Valentine on 06-21-2022 MCH (RBC) [Entitic mass] 28.2 pg 27.5-35.2 [facility] MCHC Auto (RBC) [Mass/Vol]Or dered By: Margarito Valentine on 06-21-2022 MCHC (RBC) [Mass/Vol] 32.6 g/dL 32.5-35.6 [facility] MCV Auto (RBC) [Entitic vol] Ordered By: Margarito Valentine on 06-21-2022 MCV (RBC) [Entitic vol] 86.5 fL 83.5-101 [facility] Monocytes Auto (Bld) [#/Vol] Ordered By: Margarito Valentine on 06-21-2022 Monocytes (Bld) [#/Vol] 0.7 10*3/uL 0.0-0.8 [facility] Monocytes/100 WBC Auto (Bld) Ordered By: Margarito Valentine on 06-21-2022 Monocytes/100 WBC (Bld) 10.3 % . [facility] Neutrophils Auto (Bld) [#/Vo l]Ordered By: Margarito Valentine on 06-21-2022 Neutrophils (Bld) [#/Vol] 4.8 10*3/uL 1.8-7.7 [facility] Neutrophils/100 WBC Auto (Bl d)Ordered By: Margarito Valentine on 06-21-2022 Neutrophils/100 WBC (Bld) 67.6 % . [facility] No Panel InformationOrdered By: Margarito Valentine on 06-21-2022 Estimated GFR () > 60 mL/Min [facility] Comment on above: GFR estimated refere nce range: According to KDOQI guidelines, <60 ml/min/1.73m2 is sufficient to diagnose a patient with chronic kidney disease. Pharmacy Creatinine Clearance (Chem N/A [facility] Nucleated erythrocytes [Pres ence] in Blood by Automated countOrdered By: Margarito Valentine on 06-21-2022 Nucleated RBC Auto Ql (Bld) 0.1 /100{WBC} 0-0.5 [facility] Platelet mean volume Auto (B ld) [Entitic vol]Ordered By: Margarito Valentine on 06-21-2022 Platelet mean volume (Bld) [Entitic vol] 8.2 fL 6.6-10.1 [facility] Platelets Auto (Bld) [#/Vol] Ordered By: Margarito Valentine on 06-21-2022 Platelets (Bld) [#/Vol] 149 10*3/uL 150-450 [facility] RBC Auto (Bld) [#/Vol]Ordere d By: Margarito Valentine on 06-21-2022 RBC (Bld) [#/Vol] 4.36 10*6/uL 3.90-5.60 [facility] Serum or plasma anion gap de terminationOrdered By: Margarito Valentine on 06-21-2022 Anion gap [Moles/Vol] 10.8 mmol/L 6.0-15.0 [facility] Serum or plasma calcium elan urement (mass/volume)Ordered By: Margarito Valentine on 06-21-2022 Calcium [Mass/Vol] 8.8 mg/dL 8.2-10.2 [facility] Serum or plasma chloride herb surement (moles/volume)Ordered By: Margarito Valentine on 06-21-2022 Chloride [Moles/Vol] 107 mmol/L 95-114 [facility] Serum or plasma glucose elan urement (mass/volume)Ordered By: Margarito Valentine on 06-21-2022 Glucose [Mass/Vol] 103 mg/dL 70-100 [facility] Comment on above: ADA recommended refe rence rangeRandom Glucose Reference Range is dependent on time and content of last meal. Glucose of more than 200 mg/dL in a nonstressed, ambulatory subject supports the diagnosis of Diabetes Mellitus. Serum or plasma potassium me asurement (moles/volume)Ordered By: Margarito Valentine on 06-21-2022 Potassium [Moles/Vol] 4.2 mmol/L 3.5-5.1 [facility] Serum or plasma sodium measu rement (moles/volume)Ordered By: Margarito Valentine on 06-21-2022 Sodium [Moles/Vol] 138 mmol/L 136-146 [facility] Serum or plasma total carbon dioxide measurement (moles/volume)Ordered By: Margarito Valentine on 06-21-2022 CO2 [Moles/Vol] 24.4 mmol/L 22.0-30.0 [facility] Serum or plasma urea nitroge n measurement (mass/volume)Ordered By: Margarito Valentine on 06-21-2022 Urea nitrogen [Mass/Vol] 18 mg/dL 02-15 [facility] WBC Auto (Bld) [#/Vol]Ordere d By: Margarito Valentine on 06-21-2022 WBC (Bld) [#/Vol] 7.1 10*3/uL 4.1-10.5 [facility] Office Visit (Cardiology)on 06-03-2022 Follow-up visit Diagnoses/Problems Assessed Dyslipidemia (272.4) (E78.5) Hypertension (401.9) (I10) TIA (transient ischemic attack) (435.9) (G45.9) Pre-operative examination (V72.84) (Z01.818) AAA (abdominal aortic aneurysm) (441.4) (I71.40) Former smoker (V15.82) (Z87.891) 05/17/23 quit Overweight with body mass index (BMI) of 26 to 26.9 in adult (278.02,V85.22) (E66.3,Z68.26) Orders Overweight with body mass index (BMI) of 26 to 26.9 in adult Healthy Weight Tips; Status:Complete; Done: 03Jun2022 Some eating tips that can help you lose weight.; Status:Complete; Done: 03Jun2022 Pre-operative examination IO EKG Electrocardiogram- 12 Lead; Status:Complete; Done: 03Jun2022 SocHx: Former smoker Tobacco Use Screening; Status:Complete; Done: 03Jun2022 Patient Instructions Please bring all medicines, vitamins, and herbal supplements with you when you come to the office. Prescriptions will not be filled unless you are compliant with your follow up appointments or have a follow up appointment scheduled as per instruction of your physician. Refills should be requested at the time of your visit. Patient clear to have aneurysm surgery with Dr. Valentine Follow up in [6 ] months Chief Complaint ALEX ANDERSON is being seen for [facility]. 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 He had normal echocardiogram in the hospital and his nuclear stress test revealed questionable inferoseptal ischemia. The patient quit smoking since discharge from the hospital and his renal function has improved considerably to stage III. He is follow-up with nephrology. Patient has no COPD but he has hypertension and hyperlipidemia on medical therapy. He has no previous cardiac events but apparently had 1 event of TIA in the past. He has excellent pulses in his lower extremities. Patient is awake and alert and his was with him. His examination was unremarkable. Assessment/recommendations : 1?patient need cardiac clearance prior to AAA repair. His aneurysm is asymptomatic presently but surgery is needed quickly. Given the patient's normal echocardiogram and unremarkable nuclear stress test he would be cleared for surgery with no reservations. A letter to that effect will be sent to vascular surgery today. Tobacco cessation was emphasized. 2?chronic kidney disease stage III. Patient's follows with nephrology 3?hypertension, currently under control 4?hyperlipidemia on statin 5?history of TIA on statin and aspirin which we will continue 6?lifelong history of tobacco abuse ended recently. Emphasized the need to stay away from tobacco products. 7?slight overweight, encouragement provided for prudent diet and daily activities Surgical History Problems History of Cataract surgery Current Meds Medication NameInstruction Albuterol Sulfate HFA 108 (90 Base) MCG/ACT Inhalation Aerosol Solution B-12 1000 MCG Oral TabletTAKE 1 TABLET DAILY DIRECTED. Folic Acid 1 MG Oral TabletTAKE 1 TABLET BY MOUTH ONCE DAILY Metoprolol Tartrate 50 MG Oral TabletTAKE 1 TABLET BY MOUTH TWICE A DAY FOR 90 DAYS Simvastatin 20 MG Oral TabletTAKE 1 TABLET BY MOUTH EVERY DAY IN THE EVENING FOR 90 DAYS Allergies Medication No Known Drug Allergies Recorded By: Glory Stephens; 06/03/2022 3:35:07 PM Social History Problems Daily caffeine consumption 3-4 cups coffee daily Former smoker (V15.82) (Z87.891) 05/17/23 quit No alcohol use No illicit drug use Review of Systems Constitutional: not feeling tired. Cardiovascular: no intermittent leg claudication and as noted in HPI. Respiratory: shortness of breath, but no cough. Gastrointestinal: no change in bowel habits and no blood in stools. Integumentary: no skin rashes. Neurological: no seizures and no frequent falls. All other systems have been reviewed and are negative for complaint. Vitals Vital Signs Recorded: 03Jun2022 03:38PM Heart Rate71, Apical [id number], LUE, Sitting Ijiodqbym70, LUE, Sitting Height6 ft 2 in Qqtytx556 lb BMI Cswzbvgptt50.45 kg/m2 BSA Calculated2.2 Tobacco Useb) No PHQ-2 #1. Over the last 2 weeks have you felt down, depressed or hopeless? (If yes, answer PHQ-9 below)No PHQ-2 #2. Over the last 2 weeks have you felt little interest or pleasure in doing things? (If yes, answer PHQ-9 below)No Falls Screening (Age 18+)a) No falls within the last year EKG done in office today. Physical Exam Constitutional: alert and in no acute distress. Neck: neck is supple, symmetric, trachea midline, no masses and no thyromegaly . Pulmonary: no increased work of breathing or signs of respiratory distress and lungs clear to auscultation. Cardiovascular: carotid pulses 2+ bilaterally with no bruit , JVP was normal, no thrills , regular (more content not included)... Normal [facility] Tobacco Screening.on 023 Adult depression screening assessment No [employer] 250 DO Work Phone: Fall risk assessment a) [facility] falls within the last year [facility] [employer] DO Work Phone: Tobacco use status CPHS b) No M [facility] [employer] 250 DO Work Phone: Basophils Auto (Bld) [#/Vol] Ordered By: Bernabe Cr on 05-22-2022 Basophils (Bld) [#/Vol] 0.1 10*3/uL 0.0-0.2 [facility] Basophils/100 WBC Auto (Bld) Ordered By: Bernabe Cr on 05-22-2022 Basophils/100 WBC (Bld) 1.2 % . [facility] Creatinine and Glomerular fi ltration rate.predicted panel (S/P/Bld)Ordered By: Bernabe Cr on 05-22-2022 Creatinine [Mass/Vol] 1.78 mg/dL 0.64-1.27 [facility] Eosinophils Auto (Bld) [#/Vo l]Ordered By: Bernabe Cr on 05-22-2022 Eosinophils (Bld) [#/Vol] 0.3 10*3/uL 0.0-0.45 [facility] Eosinophils/100 WBC Auto (Bl d)Ordered By: Bernabe Cr on 05-22-2022 Eosinophils/100 WBC (Bld) 3.6 % . [facility] Erythrocyte distribution wid th Auto (RBC) [Ratio]Ordered By: Bernabe Cr on 05-22-2022 Erythrocyte distribution width (RBC) [Ratio] 15.3 % 12.0-14.8 [facility] Estimated glomerular filtrat ion rate (GFR) non- AmericanOrdered By: Bernabe Cr on 05-22-2022 GFR/1.73 sq M.predicted among non-blacks MDRD (S/P/Bld) [Vol rate/Area] 37 mL/Min [facility] Hematocrit Auto (Bld) [Volum e fraction]Ordered By: Bernabe Cr on 05-22-2022 Hematocrit (Bld) [Volume fraction] 36.2 % 38.8-50.0 [facility] Hemoglobin [Mass/volume] in BloodOrdered By: Bernabe Cr on 05-22-2022 Hemoglobin (Bld) [Mass/Vol] 11.7 g/dL 13.0-17.0 [facility] Leukocytes [#/volume] correc phil for nucleated erythrocytes in Blood by Automated counOrdered By: Bernabe Cr on 05-22-2022 WBC corrected for nucl RBC Auto (Bld) [#/Vol] 8.1 10*3/uL 4.1-10.5 [facility] Lymphocytes Auto (Bld) [#/Vo l]Ordered By: Bernabe Cr on 05-22-2022 Lymphocytes (Bld) [#/Vol] 1.4 10*3/uL 1.00-4.8 [facility] Lymphocytes/100 WBC Auto (Bl d)Ordered By: Bernabe Cr on 05-22-2022 Lymphocytes/100 WBC (Bld) 16.9 % . [facility] MCH Auto (RBC) [Entitic mass ]Ordered By: Bernabe Cr on 05-22-2022 MCH (RBC) [Entitic mass] 27.4 pg 27.5-35.2 [facility] MCHC Auto (RBC) [Mass/Vol]Or dered By: Bernabe Cr on 05-22-2022 MCHC (RBC) [Mass/Vol] 32.5 g/dL 32.5-35.6 [facility] MCV Auto (RBC) [Entitic vol] Ordered By: Bernabe Cr on 05-22-2022 MCV (RBC) [Entitic vol] 84.3 fL 83.5-101 [facility] Monocytes Auto (Bld) [#/Vol] Ordered By: Bernabe Cr on 05-22-2022 Monocytes (Bld) [#/Vol] 0.8 10*3/uL 0.0-0.8 [facility] Monocytes/100 WBC Auto (Bld) Ordered By: Bernabe Cr on 05-22-2022 Monocytes/100 WBC (Bld) 10.1 % . [facility] Neutrophils Auto (Bld) [#/Vo l]Ordered By: Bernabe Cr on 05-22-2022 Neutrophils (Bld) [#/Vol] 5.6 10*3/uL 1.8-7.7 [facility] Neutrophils/100 WBC Auto (Bl d)Ordered By: Bernabe Cr on 05-22-2022 Neutrophils/100 WBC (Bld) 68.2 % . [facility] No Panel InformationOrdered By: Bernabe Cr on 05-22-2022 Estimated GFR () 45 mL/Min [facility] Comment on above: GFR estimated refere nce range: According to KDOQI guidelines, <60 ml/min/1.73m2 is sufficient to diagnose a patient with chronic kidney disease. Pharmacy Creatinine Clearance (Chem 39.77 [facility] Nucleated erythrocytes [Pres ence] in Blood by Automated countOrdered By: Bernabe Cr on 05-22-2022 Nucleated RBC Auto Ql (Bld) 0.1 /100{WBC} 0-0.5 [facility] Platelet mean volume Auto (B ld) [Entitic vol]Ordered By: Bernabe Cr on 05-22-2022 Platelet mean volume (Bld) [Entitic vol] 8.7 fL 6.6-10.1 [facility] Platelets Auto (Bld) [#/Vol] Ordered By: Bernabe Cr on 05-22-2022 Platelets (Bld) [#/Vol] 198 10*3/uL 150-450 [facility] RBC Auto (Bld) [#/Vol]Ordere d By: Bernabe Cr on 05-22-2022 RBC (Bld) [#/Vol] 4.29 10*6/uL 3.90-5.60 [facility] Serum or plasma anion gap de terminationOrdered By: Bernabe Cr on 05-22-2022 Anion gap [Moles/Vol] 13.3 mmol/L 6.0-15.0 [facility] Serum or plasma calcium elan urement (mass/volume)Ordered By: Bernabe Cr on 05-22-2022 Calcium [Mass/Vol] 8.3 mg/dL 8.2-10.2 [facility] Serum or plasma chloride herb surement (moles/volume)Ordered By: Bernabe Cr on 05-22-2022 Chloride [Moles/Vol] 104 mmol/L 95-114 [facility] Serum or plasma glucose elan urement (mass/volume)Ordered By: Bernabe Cr on 05-22-2022 Glucose [Mass/Vol] 180 mg/dL 70-100 [facility] Comment on above: ADA recommended refe rence rangeRandom Glucose Reference Range is dependent on time and content of last meal. Glucose of more than 200 mg/dL in a nonstressed, ambulatory subject supports the diagnosis of Diabetes Mellitus. Serum or plasma potassium me asurement (moles/volume)Ordered By: Bernabe Cr on 05-22-2022 Potassium [Moles/Vol] 3.3 mmol/L 3.5-5.1 [facility] Serum or plasma sodium measu rement (moles/volume)Ordered By: Bernabe Cr on 05-22-2022 Sodium [Moles/Vol] 137 mmol/L 136-146 [facility] Serum or plasma total carbon dioxide measurement (moles/volume)Ordered By: Bernabe Cr on 05-22-2022 CO2 [Moles/Vol] 23.0 mmol/L 22.0-30.0 [facility] Serum or plasma urea nitroge n measurement (mass/volume)Ordered By: Bernabe Cr on 05-22-2022 Urea nitrogen [Mass/Vol] 21 mg/dL 9-23 [facility] WBC Auto (Bld) [#/Vol]Ordere d By: Bernabe Cr on 05-22-2022 WBC (Bld) [#/Vol] 8.1 10*3/uL 4.1-10.5 [facility] No Panel InformationOrdered By: Bernabe Cr on 05-21-2022 25-Hydroxy Vitamin D Total 15.9 ng/mL 30-100 [facility] Comment on above: VITAMIN D STATUS 25( [place])VITAMIN D RANGE (ng/mL) Deficient <20 Insufficient 20 to <30Sufficient 30 to 100Reference: Sixto MF,Federico MATA, Palomo LESLIE, et al. Evaluation,treatment, and prevention of vitamin D deficiency; an Endocrine Society clinical practice guideline. JCEM. 2010; 96(7):1911-30. Vitamin C level 0.2 mg/dL 0.4-2.0 [facility] Comment on above: This test was develo ped and its performance characteristicsdetermined by [facility]. It has not been cleared orapproved by the Food and Drug Administration.Vitamin C deficiency is generally defined as plasma orserum concentrations less than 0.2 mg/dL and levels between0.2 and 0.4 mg/dL are considered low.Performed at: [address] [id number] Director: Mamadou Rodriguez MD, Phone: [phone] Folate [Mass/volume] in Seru m or PlasmaOrdered By: Taz Barnes on 05-20-2022 Folate [Mass/Vol] 5.5 ng/mL >5.9 [facility] Comment on above: Folate reference ran ge: >5.9 ng/mlThe WHO technical consultation on folate and vitamin [id number] has determined that folate concentrations lessthan 4 ng/ml are considered deficient. Laboratory - Chemistry and C hemistry - challengeOrdered By: Taz Barnes on 05-20-2022 Cobalamin (Vitamin B12) [Mass/Vol] 169 pg/mL 180-914 [facility] No Panel InformationOrdered By: Taz Barnes on 05-20-2022 Ova and Parasite Result 1 [facility] Ova and Parasite Result 1 [facility] Ova or parasites identificat ionOrdered By: Taz Barnes on 05-20-2022 Ova and parasites identified LM Nom (Unsp spec) [facility] Ova and parasites identified LM Nom (Unsp spec) [facility] Laboratory - Chemistry and C hemistry - challengeOrdered By: Janice Gonzalez on 05-19-2022 Magnesium [Mass/Vol] 1.7 mg/dL 1.6-2.6 [facility] Automated erythrocytes count in urine sediment (number/area)Ordered By: Taz Barnes on 05-18-2022 RBC Auto (Urine sed) [#/Area] 50-100 [HPF] 0-4 [facility] Automated leukocytes count i n urine sediment (number/area)Ordered By: Taz Barnes on 05-18-2022 WBC Auto (Urine sed) [#/Area] Innumerable [HPF] 0-4 [facility] Automated urine hyaline cast s count (number/volume)Ordered By: Taz Barnes on 05-18-2022 Hyaline casts Auto (U) [#/Vol] None seen [LPF] 0-1 [facility] Bilirubin Test strip Ql (U)O rdered By: Taz Barnes on 05-18-2022 Bilirubin Ql (U) Negative Negative [facility] Casts typing in urine sedime nt by light microscopyOrdered By: Taz Barnes on 05-18-2022 Casts LM Nom (Urine sed) None seen [LPF] None Seen [facility] Color Auto (U)Ordered By: Starr Barnes on 05-18-2022 Color (U) Yellow Yellow [facility] Ketones Auto test strip (U) [Mass/Vol]Ordered By: Taz Barnes on 05-18-2022 Ketones (U) [Mass/Vol] Negative Negative [facility] Nitrite Test strip Ql (U)Ord ered By: Taz Barnes on 05-18-2022 Nitrite Ql (U) Negative Negative [facility] Protein Auto test strip (U) [Mass/Vol]Ordered By: Taz Barnes on 05-18-2022 Protein (U) [Mass/Vol] 100 mg/dL Negative [facility] Specific gravity Auto test s trip (U) [Rel density]Ordered By: Taz Barnes on 05-18-2022 Specific gravity (U) [Rel density] 1.010 1.001-1.03 0 [facility] Squamous epithelial cells de tection in urine sediment by light microscopyOrdered By: Taz Barnes on 05-18-2022 Epithelial cells.squamous LM Ql (Urine sed) 1-2 [HPF] 0-2 [facility] Urine bacteria detection by automated methodOrdered By: Taz Barnes on 05-18-2022 Bacteria Auto Ql (U) None seen None Seen [facility] Urine clarity by refractomet ry automatedOrdered By: Taz Barnes on 05-18-2022 Clarity Refractometry automated (U) Turbid Clear [facility] Urine culture routineOrdered By: Taz Barnes on 05-18-2022 Bacteria identified Cx Nom (U) No Growth 2 Days [facility] Bacteria identified Cx Nom (U) No Growth 2 Days [facility] Urine glucose measurement by automated test strip (mass/volume)Ordered By: Taz Barnes on 05-18-2022 Glucose Auto test strip (U) [Mass/Vol] Normal mg/dL Normal [facility] Urine hemoglobin detection b y automated test stripOrdered By: Taz Barnes on 05-18-2022 Hemoglobin Auto test strip Ql (U) 2+ Negative [facility] Urine leukocyte esterase det ection by automated test stripOrdered By: Taz Barnes on 05-18-2022 Leukocyte esterase Auto test strip Ql (U) 4+ Negative [facility] Urobilinogen Auto test strip (U) [Mass/Vol]Ordered By: Taz Barnes on 05-18-2022 Urobilinogen (U) [Mass/Vol] Normal mg/dL Normal [facility] Yeast detection in urine sed iment by light microscopyOrdered By: Taz Barnes on 05-18-2022 Yeast LM Ql (Urine sed) None seen [HPF] None Se en [facility] pH Auto test strip (U)Ordere d By: Taz Barnes on 05-18-2022 pH (U) 7.5 [pH] 5.0-9.0 [facility] Activated partial thrombopla stin time (aPTT) in platelet poor plasma by coagulation aOrdered By: Taz Barnes on 05-16-2022 aPTT Coag (PPP) [Time] 29.5 s 25.1-36.5 [facility] Body fluid albumin measureme nt (mass/volume)Ordered By: Taz Barnes on 05-16-2022 Albumin (Body fld) [Mass/Vol] 2.9 g/dL 3.2-5.5 [facility] CBC AUTO DIFFon 05-16-2022 BASO # 0.0 103/ul Normal 0.0-0.1 [facility] Comment on above: Performed By: #### C BC #### [facility] [address] [place] [address] Dr. Karen Pierce Basophils/100 WBC (Bld) 0.3 % Normal 0.2-2.0 [facility] Comment on above: Performed By: #### C BC #### [facility] [address] [place] [address] Dr. Karen Pierce EO # 0.1 103/ul Normal 0.0-0.7 [facility] Comment on above: Performed By: #### C BC #### [facility] [address] [place] [address] Dr. Karen Pierce Eosinophils/100 WBC (Bld) 0.7 % Critically low 0.9-7.0 [facility] Comment on above: Performed By: #### C BC #### [facility] [address] [place] [address] Dr. Karen Pierce Erythrocyte distribution width (RBC) [Ratio] 14.8 % Normal 11.0-15.0 [facility] Comment on above: Performed By: #### C BC #### [facility] [address] [place] [address] Dr. Karen Pierce Hematocrit (Bld) [Volume fraction] 39.4 % Critically low 42.0-54.0 [facility] Comment on above: Performed By: #### C BC #### [facility] [address] [place] [address] Dr. Karen Pierce Hemoglobin (Bld) [Mass/Vol] 12.6 g/dL Critically low 14.0-18.0 [facility] Comment on above: Performed By: #### C BC #### [facility] [address] [place] [address] Dr. Karen Pierce IG # 0.04 10e3/ul Critically high 0.00-0.03 [facility] Comment on above: Performed By: #### C BC #### [facility] [address] [place] [address] Dr. Karen Pierce IG % 0.4 % Normal 0.0-0.5 [facility] Comment on above: Performed By: #### C BC #### [facility] [address] [place] [address] Dr. Karen Pierce LYMPH # 1.2 103/ul Normal 1.2-3.8 [facility] Comment on above: Performed By: #### C BC #### [facility] [address] [place] [address] Dr. Karen Pierce Lymphocytes/100 WBC (Bld) 11.8 % Critically low 20.5-60.0 [facility] Comment on above: Performed By: #### C BC #### [facility] [address] [place] [address] Dr. Karen Pierce MANUAL DIFF REQ NO Normal [facility] Comment on above: Performed By: #### C BC #### [facility] [address] [place] [address] Dr. Karen Pierce MCH (RBC) [Entitic mass] 27.5 pg Normal 25.9-34.0 [facility] Comment on above: Performed By: #### C BC #### [facility] [address] [place] [address] Dr. Karen Pierce MCHC (RBC) [Mass/Vol] 32.0 g/dL Normal 29.9-35.2 [facility] Comment on above: Performed By: #### C BC #### [facility] [address] [place] [address] Dr. Karen Pierce MCV (RBC) [Entitic vol] 86.0 fL Normal 80.0-94.0 [facility] Comment on above: Performed By: #### C BC #### [facility] [address] [place] [address] Dr. Karen Pierce MONO # 1.4 103/ul Critically high 0.3-0.8 [facility] Comment on above: Performed By: #### C BC #### [facility] [address] [place] [address] Dr. Karen Pierce Monocytes/100 WBC (Bld) 13.8 % Critically high 1.7-12. 0 [facility] Comment on above: Performed By: #### C BC #### [facility] [address] [place] [address] Dr. Karen Pierce NEUT # 7.6 103/ul Critically high 1.4-6.5 [facility] Comment on above: Performed By: #### C BC #### [facility] [address] [place] [address] Dr. Karen Pierce Neutrophils/100 WBC (Bld) 73.0 % Normal 43.0-75.0 [facility] Comment on above: Performed By: #### C BC #### [facility] [address] [place] [address] Dr. Karen Pierce Platelet mean volume (Bld) [Entitic vol] 10.6 fL Normal 9.5-13.5 [facility] Comment on above: Performed By: #### C BC #### [facility] [address] [place] [address] Dr. Karen Pierce PLT 193 103/ul Normal 150-450 [facility] Comment on above: Performed By: #### C BC #### [facility] [address] [place] [address] Dr. Karen Pierce RBC 4.58 106/ul Critically low 4.70-6.10 [facility] Comment on above: Performed By: #### C BC #### [facility] [address] [place] [address] Dr. Karen Pierce WBC 10.4 103/ul Normal 4.0-11.0 [facility] Comment on above: Performed By: #### C BC #### [facility] [address] [place] [address] ABD/PELVIS WO CONon 05-16 CT ABD/PELVIS WO CON EXAMINATION: CT ABD /PELVIS WO CON HISTORY: Diarrhea COMPARISON: No relevant comparison available. TECHNIQUE: Axial, Coronal, and Sagittal images were obtained without and/or with IV contrast as indicated by examination type. Dose reduction techniques were achieved by using automated exposure control and/or adjustment of mA and/or kV according to patient size and/or use of iterative reconstruction technique. FINDINGS: LUNG BASES: No visible pulmonary or pleural disease. LIVER: Several rounded hypodensities within liver favoring cysts; largest is 5.4 cm. BILIARY: No dilatation or calcification. PANCREAS: No lesion, fluid collection, or abnormal duct dilatation. SPLEEN: No enlargement or focal lesion. ADRENALS: No mass or enlargement. KIDNEYS: Dilated renal calyces, renal pelvis, and ureters bilaterally which appear to be chronic. The ureters insert into the urinary bladder in atypical locations, the right ureter is near central within the posterior wall mid left ureter into the anterior left lateral wall. Multiple rounded isodense nodules projecting from the left kidney of uncertain etiology. BOWEL/MESENTERY: No visible mass, obstruction, or bowel wall thickening. Empty colon. AORTA/VASCULAR: Fusiform dilation of infrarenal aorta, 7.2 x 6.7 cm. Dilated common iliac arteries, approximately 2.5 cm. RETROPERITONEUM: No mass or adenopathy. LYMPH NODES: No adenopathy. URINARY BLADDER: 2.3 x 2.3 x 1.9 cm hyperdense mass adjacent the left lateral anterior wall and roof of the bladder. Large diverticulum an additional smaller diverticula projecting from posterior right margin of bladder. Within posterior right dependent region of bladder are 2 adjacent 5 mm stones. Atypical insertions of the ureters into the bladder as described above under kidneys. PELVIC ORGANS: Prominent prostate protruding into base of bladder. ABDOMINAL WALL: No mass or hernia. BONES: Dense sclerotic focus within lateral aspect of left femoral head suspected represent a bone island. OTHER: Negative. IMPRESSION: 1. No bowel obstruction or appreciable bowel wall thickening. Empty colon. 2. 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 Dilated common iliac arteries, 2.5 cm. 3. Hypodense mass within anterior left aspect of urinary bladder suspicious for neoplasm. 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 Bilateral hydroureter and hydronephrosis which appears to be long-standing. Multiple large isodense nodules projecting from left kidney; nonspecific. Nonemergent CT abdomen and pelvis with IV contrast is recommended for further evaluation of kidneys, ureter, and bladder. Electronically authenticated by: LORENZO SCHERER Date: 2022-05-16 09:21 Normal [facility] CULTURE URINEon 05-16-2022 CULTURE URINE Culture Observations : MODERATE GROWTH OF MIXED SKIN JAS. NO POTENTIAL PATHOGENS SEEN. Normal [facility] Comment on above: Performed By: #### U RTPCR #### [facility] [address] [address] [address] Karen Pierce Covid-19 PCR ([facility])on 04-26 SARS-CoV-2 (COVID-19) RNA KARI+probe Ql (Unsp spec) Not detected Normal NOT DETECTED [facility] Comment on above: Result Comment: When diagnostic testing is negative, the possibility of a false negative should be considered in the context of a patient's recent exposures and the presence of clinical signs and symptoms consistent with SARS-CoV-2. This test is not yet approved or cleared by the [place] FDA. When there are no FDA-approved or cleared tests available, and other criteria are met, FDA can make tests available under an emergency access mechanism called an Emergency Use Authorization (EUA). The EUA for this test is supported by the Child Support Case Officer of Health and Human Service's declaration that circumstances exist to justify the emergency use of in vitro diagnostics for the detection and/or diagnosis of the virus that causes COVID-19. This EUA will remain in effect for the duration of the COVID-19 declaration justifying emergency of IVDs, unless it is terminated or revoked by the FDA (after which the test may no longer be used). Performed By: #### U A #### [facility] [address] [place] [address] [id number] [address] Karen Pierce Creatinine [Mass/volume] in UrineOrdered By: Taz Barnes on 05-16-2022 Creatinine (U) [Mass/Vol] 68.1 mg/dL [facility] Comment on above: No reference range e stablished ER URINE PROFILEon 2 Bilirubin Ql (U) Negative Normal NEGATIVE [facility] Comment on above: Performed By: #### U RTPCR #### [facility] [address] [place] [address] Dr. Karen Pierce Clarity (U) CLEAR Normal CLEAR [facility] Comment on above: Performed By: #### U RTPCR #### [facility] [address] [place] [address] Dr. Karen Pierce Color (U) YELLOW Normal YELLOW [facility] Comment on above: Performed By: #### U RTPCR #### [facility] [address] [place] [address] Dr. Karen Pierce ERUAHD A micrscopic examina tion will be performed if indicated. Normal [facility] Comment on above: Performed By: #### U RTPCR #### [facility] [address] [place] [address] Dr. Karen Pierce Glucose Ql (U) Negative Normal NEGATIVE [facility] Comment on above: Performed By: #### U RTPCR #### [facility] [address] [place] [address] Dr. Karen Pierce Hemoglobin Ql (U) MODERATE Abnormal NEGATIVE [facility] Comment on above: Performed By: #### U RTPCR #### [facility] [address] [place] [address] Dr. Karen Pierce Ketones Ql (U) Negative Normal NEGATIVE [facility] Comment on above: Performed By: #### U RTPCR #### [facility] [address] [place] [address] Dr. Karen Pierce LEUKOCYTES LARGE Abnormal NEGATIVE [facility] Comment on above: Performed By: #### U RTPCR #### [facility] [address] [place] [address] Dr. Karen Pierce Nitrite Ql (U) Negative Normal NEGATIVE [facility] Comment on above: Performed By: #### U RTPCR #### [facility] [address] [place] [address] Dr. Kaern Pierce pH (U) 5.5 [pH] Normal 5-9 [facility] Comment on above: Performed By: #### U RTPCR #### [facility] [address] [place] [address] Dr. Karen Pierce SPEC GRAVITY <=1.005 Abnormal 1.005-<=1. 025 [facility] Comment on above: Performed By: #### U RTPCR #### [facility] [address] [place] [address] Dr. Karen Pierce UA PROTEIN Negative Normal NEGATIVE/ TRACE [facility] Comment on above: Performed By: #### U RTPCR #### [facility] [address] [place] [address] Dr. Karen Pierce UR MICRO IND INDICATED Normal [facility] Comment on above: Performed By: #### U RTPCR #### [facility] [address] [place] [address] Dr. Karen Pierce Urobilinogen Qn (U) 0.2 {Tonio'U}/dL Normal 0.2 - 1. 0 [facility] Comment on above: Performed By: #### U RTPCR #### [facility] [address] [place] [address] Dr. Karen Pierce Globulin Calc (S) [Mass/Vol] Ordered By: Taz Barnes on 05-16-2022 Globulin (S) [Mass/Vol] 3.5 g/dL [facility] - CoagulationOrde red By: Taz Barnes on 05-16-2022 PT Coag (PPP) [Time] 14.2 s 9.0-12.9 [facility] PROF 14(COMP METB)on 022 Albumin [Mass/Vol] 3.1 g/dL Critically low 3.4-5.0 Th [facility] Comment on above: Performed By: #### U RTPCR #### [facility] [address] [place] [address] Dr. Karen Pierce Albumin/Globulin [Mass ratio] 0.7 {ratio} Normal [facility] Comment on above: Performed By: #### U RTPCR #### [facility] [address] [place] [address] Dr. Karen Pierce ALP [Catalytic activity/Vol] 96 U/L Normal 46-116 [facility] Comment on above: Performed By: #### U RTPCR #### [facility] [address] [address] [address] Karen Pierce ALT [Catalytic activity/Vol] 46 U/L Normal 16-63 [facility] Comment on above: Performed By: #### U RTPCR #### [facility] [address] [place] [address] Dr. Karen Pierce Anion gap [Moles/Vol] 19.7 mmol/L Normal Th e [facility] Comment on above: Performed By: #### U RTPCR #### [facility] [address] [address] [address] Karen Pierce AST [Catalytic activity/Vol] 21 U/L Normal 15-37 [facility] Comment on above: Performed By: #### U RTPCR #### [facility] [address] [place] [address] Dr. Karen Pierce Bilirubin [Mass/Vol] 0.3 mg/dL Normal 0.2-1.0 [facility] Comment on above: Performed By: #### U RTPCR #### [facility] [address] [place] [address] Dr. Karen Pierce Calcium [Mass/Vol] 8.9 mg/dL Normal 8.5-10.1 [facility] Comment on above: Performed By: #### U RTPCR #### [facility] [address] [place] [address] Dr. Karen Pirece Chloride [Moles/Vol] 101 mmol/L Normal 98-107 [facility] Comment on above: Performed By: #### U RTPCR #### [facility] [address] [address] [address] Karen Pierce CO2 [Moles/Vol] 18.3 mmol/L Critically low 21.0-32.0 [facility] Comment on above: Performed By: #### U RTPCR #### [facility] [address] [address] [address] Karen Pierce Creatinine [Mass/Vol] 8.99 mg/dL Critically high 0.70-1.30 [facility] Comment on above: Performed By: #### U RTPCR #### [facility] [address] [address] [address] Karen Pierce EGFR-AF VI[place]ESE 7 mL/min/1.73m2 Critically low >=60 [facility] Comment on above: Performed By: #### U RTPCR #### [facility] [address] [address] [address] Karen Pierce EGFR-NON AF VI[place]ESE 6 mL/min/1.73m2 Critically low >=60 [facility] Comment on above: Performed By: #### U RTPCR #### [facility] [address] [address] [address] Karen Pierce Globulin (S) [Mass/Vol] 4.7 g/dL Normal [facility] Comment on above: Performed By: #### U RTPCR #### [facility] [address] [place] [address] Dr. Karen Pierce Glucose [Mass/Vol] 110 mg/dL Critically high 74-106 [facility] Comment on above: Performed By: #### U RTPCR #### [facility] [address] [address] [address] Karen Pierce Potassium [Moles/Vol] 5.0 mmol/L Normal 3.5-5.1 [facility] Comment on above: Performed By: #### U RTPCR #### [facility] [address] [place] [address] Dr. Karen Pierce Protein [Mass/Vol] 7.8 g/dL Normal 6.4-8.2 [facility] Comment on above: Performed By: #### U RTPCR #### [facility] [address] [address] [address] Karen Pierce Sodium [Moles/Vol] 134 mmol/L Critically low 136-145 [facility] Comment on above: Performed By: #### U RTPCR #### [facility] [address] [address] [address] Karen Pierce Urea nitrogen [Mass/Vol] 129.0 mg/dL Critically high 7.0-18.0 [facility] Comment on above: Performed By: #### U RTPCR #### [facility] [address] [address] [address] Karen Pierce Urea nitrogen/Creatinine [Mass ratio] 14.3 mg/mg Normal [facility] Comment on above: Performed By: #### U RTPCR #### [facility] [address] [address] [address] Karen Pierce Platelet poor plasma interna tional normalized ratio (INR) by coagulation assay (relatOrdered By: Taz Barnes on 05-16-2022 INR Coag (PPP) [Relative time] 1.3 {INR} [facility] Comment on above: INR Therapeutic Rang e A) Pre- and Peroperative OAT started two weeks before surgery. NOT HIP SURGERY: 1.5 - 2.5 HIP SURGERY: 2 - 3B) Primary and secondary prevention of venous THROMBOSIS: 2 - 3C) Active venous thrombosis, pulmonary embolismand prevention of recurrent venous thrombosis: 2 - 3D) Prevention of arterial thromboembolismincluding patients with mechanical heart valves: 3 - 4.5 Protein [Mass/volume] in Ser um or PlasmaOrdered By: Taz Barnes on 05-16-2022 Protein [Mass/Vol] 6.4 g/dL 6.1-7.9 [facility] Serum or plasma alanine bal otransferase measurement without P-5'-P (enzymatic activiOrdered By: Taz Barnes on 05-16-2022 ALT No additional P-5'-P [Catalytic activity/Vol] 38 U/L 10-60 [facility] Serum or plasma albumin/glob ulin mass ratioOrdered By: Taz Barnes on 05-16-2022 Albumin/Globulin [Mass ratio] 0.8 {ratio} [facility] Serum or plasma alkaline deonte sphatase measurement (enzymatic activity/volume)Ordered By: Taz Barnes on 05-16-2022 ALP [Catalytic activity/Vol] 78 U/L 32-92 [facility] Serum or plasma aspartate am inotransferase measurement (enzymatic activity/volume)Ordered By: Taz Barnes on 05-16-2022 AST [Catalytic activity/Vol] 19 U/L 10-42 [facility] Serum or plasma total biliru bin measurement (mass/volume)Ordered By: Taz Barnes on 05-16-2022 Bilirubin [Mass/Vol] 0.4 mg/dL 0.3-1.2 [facility] URINE MICROSCOPIC ONLYon BACTERIA SMALL Abnormal NONE SEEN [facility] Comment on above: Performed By: #### U RTPCR #### [facility] [address] [place] [address] Dr. Karen Pierce Bacteria identified Cx Nom (U) INDICATED Normal [facility] Comment on above: Performed By: #### U RTPCR #### [facility] [address] [place] [address] Dr. Karen Pierce CAST NONE SEEN Normal NONE SEEN [facility] Comment on above: Performed By: #### U RTPCR #### [facility] [address] [place] [address] Dr. Karen Pierce Crystals LM Nom (Urine sed) NONE SEEN Normal NONE SEEN [facility] Comment on above: Performed By: #### U RTPCR #### [facility] [address] [place] [address] Dr. Karen Pierce Epithelial cells LM Ql (Urine sed) NONE SEEN Normal NONE SEEN /RARE [facility] Comment on above: Performed By: #### U RTPCR #### [facility] [address] [place] [address] Dr. Karen Pierce MUCOUS NONE SEEN Normal NONE SEEN [facility] Comment on above: Performed By: #### U RTPCR #### [facility] [address] [place] [address] Dr. Karen Pierce RBC 20-50 Abnormal 0-2 [facility] Comment on above: Performed By: #### U RTPCR #### [facility] [address] [place] [address] Dr. Karen Pierce WBC (U) [#/Vol] /uL Abnormal NONE SEEN [facility] Comment on above: Performed By: #### U RTPCR #### [facility] [address] [place] [address] Dr. Karen Pierce Urine sodium measurement (mo les/volume)Ordered By: Taz Barnes on 05-16-2022 Sodium (U) [Moles/Vol] 42.0 mmol/L [facility] Comment on above: No reference range e stablished XR ABD FLAT_UPon 05-16-2022 XR ABD FLAT_UP EXAMINATION: XR ABD FLAT_UP HISTORY: Fatigue , diarrhea COMPARISON: No relevant comparison available. FINDINGS: BOWEL GAS PATTERN: Air and stool filled colon with mildly distended sigmoid colon. Tapering of the distal colon suspicious for obstruction, a subsequent CT imaging shows normal, nonobstructive empty bowel. FREE AIR: None. CALCIFICATIONS: None significant. BONES: No fracture or visible bone lesion. OTHER: Small, rounded metallic foreign body projecting over right pelvis. IMPRESSION: 1. Air and stool filled bowel with appearance which could represent distal obstruction, however, follow-up CT abdomen and pelvis reveals no obstruction. Electronically authenticated by: LORENZO SCHERER Date: 2022-05-16 09:25 Normal [facility] CBC AUTO DIFFon 05-15-2022 BASO # 0.0 103/ul Normal 0.0-0.1 [facility] Comment on above: Performed By: #### U A #### [facility] [address] [place] [address] Dr. Karen Pierce Basophils/100 WBC (Bld) 0.3 % Normal 0.2-2.0 [facility] Comment on above: Performed By: #### U A #### [facility] [address] [place] [address] Dr. Karen Pierce EO # 0.1 103/ul Normal 0.0-0.7 [facility] Comment on above: Performed By: #### U A #### [facility] [address] [address] [address] Karen Pierce Eosinophils/100 WBC (Bld) 0.7 % Critically low 0.9-7.0 [facility] Comment on above: Performed By: #### U A #### [facility] [address] [place] [address] Dr. Karen Pierce Erythrocyte distribution width (RBC) [Ratio] 14.9 % Normal 11.0-15.0 [facility] Comment on above: Performed By: #### U A #### [facility] [address] [place] [address] Dr. Karen Pierce Hematocrit (Bld) [Volume fraction] 39.8 % Critically low 42.0-54.0 [facility] Comment on above: Performed By: #### U A #### [facility] [address] [place] [address] Dr. Karen Pierce Hemoglobin (Bld) [Mass/Vol] 12.7 g/dL Critically low 14.0-18.0 [facility] Comment on above: Performed By: #### U A #### [facility] [address] [place] [address] Dr. Karen Pierce IG # 0.06 10e3/ul Critically high 0.00-0.03 [facility] Comment on above: Performed By: #### U A #### [facility] [address] [place] [address] Dr. Karen Pierce IG % 0.5 % Normal 0.0-0.5 [facility] Comment on above: Performed By: #### U A #### [facility] [address] [place] [address] Dr. Karen Pierce LYMPH # 0.9 103/ul Critically low 1.2-3.8 [facility] Comment on above: Performed By: #### U A #### [facility] [address] [place] [address] Dr. Karen Pierce Lymphocytes/100 WBC (Bld) 7.1 % Critically low 20.5-60.0 [facility] Comment on above: Performed By: #### U A #### [facility] [address] [place] [address] Dr. Karen Pierce MANUAL DIFF REQ NO Normal [facility] Comment on above: Performed By: #### U A #### [facility] [address] [place] [address] Dr. Karen Pierce MCH (RBC) [Entitic mass] 27.7 pg Normal 25.9-34.0 [facility] Comment on above: Performed By: #### U A #### [facility] [address] [place] [address] Dr. Karen Pierce MCHC (RBC) [Mass/Vol] 31.9 g/dL Normal 29.9-35.2 [facility] Comment on above: Performed By: #### U A #### [facility] [address] [place] [address] Dr. Karen Pierce MCV (RBC) [Entitic vol] 86.7 fL Normal 80.0-94.0 [facility] Comment on above: Performed By: #### U A #### [facility] [address] [address] [address] Karen Pierce MONO # 1.0 103/ul Critically high 0.3-0.8 [facility] Comment on above: Performed By: #### U A #### [facility] [address] [place] [address] Dr. Karen Pierce Monocytes/100 WBC (Bld) 8.5 % Normal 1.7-12.0 [facility] Comment on above: Performed By: #### U A #### [facility] [address] [place] [address] Dr. Karen Pierce NEUT # 9.9 103/ul Critically high 1.4-6.5 [facility] Comment on above: Performed By: #### U A #### [facility] [address] [place] [address] Dr. Karen Pierce Neutrophils/100 WBC (Bld) 82.9 % Critically high 43.0-75.0 [facility] Comment on above: Performed By: #### U A #### [facility] [address] [place] [address] Dr. Karen Pierce Platelet mean volume (Bld) [Entitic vol] 9.7 fL Normal 9.5-13.5 [facility] Comment on above: Performed By: #### U A #### [facility] [address] [place] [address] Dr. Karen Pierce PLT 206 103/ul Normal 150-450 [facility] Comment on above: Performed By: #### U A #### [facility] [address] [place] [address] Dr. Karen Pierce RBC 4.59 106/ul Critically low 4.70-6.10 [facility] Comment on above: Performed By: #### U A #### [facility] [address] [place] [address] Dr. Karen Pierce WBC 11.9 103/ul Critically high 4.0-11.0 [facility] Comment on above: Performed By: #### U A #### [facility] [address] [place] [address] Dr. Karen Pierce LIPASEon 05-15-2022 Lipase [Catalytic activity/Vol] 340.0 U/L Normal 73.0-393.0 [facility] Comment on above: Performed By: #### U A #### [facility] [address] [place] [address] Dr. Karen Pierce PROF 14(COMP METB)on 022 Albumin [Mass/Vol] 3.1 g/dL Critically low 3.4-5.0 [facility] Comment on above: Performed By: #### U A #### [facility] [address] [place] [address] Dr. Karen Pierce Albumin/Globulin [Mass ratio] 0.7 {ratio} Normal [facility] Comment on above: Performed By: #### U A #### [facility] [address] [place] [address] Dr. Karen Pierce ALP [Catalytic activity/Vol] 105 U/L Normal 46-116 [facility] Comment on above: Performed By: #### U A #### [facility] [address] [place] [address] Dr. Karen Pierce ALT [Catalytic activity/Vol] 49 U/L Normal 16-63 [facility] Comment on above: Performed By: #### U A #### [facility] [address] [place] [address] Dr. Karen Pierce Anion gap [Moles/Vol] 18.4 mmol/L Normal [facility] Comment on above: Performed By: #### U A #### [facility] [address] [place] [address] Dr. Karen Pierce AST [Catalytic activity/Vol] 20 U/L Normal 15-37 [facility] Comment on above: Performed By: #### U A #### [facility] [address] [place] [address] Dr. Karen Pierce Bilirubin [Mass/Vol] 0.3 mg/dL Normal 0.2-1.0 [facility] Comment on above: Performed By: #### U A #### [facility] [address] [place] [address] Dr. Karen Pierce Calcium [Mass/Vol] 9.1 mg/dL Normal 8.5-10.1 [facility] Comment on above: Performed By: #### U A #### [facility] [address] [place] [address] Dr. Karen Pierce Chloride [Moles/Vol] 103 mmol/L Normal 98-107 [facility] Comment on above: Performed By: #### U A #### [facility] [address] [place] [address] Dr. Karen Pierce CO2 [Moles/Vol] 20.1 mmol/L Critically low 21.0-32.0 [facility] Comment on above: Performed By: #### U A #### [facility] [address] [place] [address] Dr. Karen Pierce Creatinine [Mass/Vol] 9.58 mg/dL Critically high 0.70-1.30 [facility] Comment on above: Performed By: #### U A #### [facility] [address] [place] [address] Dr. Karen Pierce EGFR-AF VI[place] 6 mL/min/1.73m2 Critically low >=60 [facility] Comment on above: Performed By: #### U A #### [facility] [address] [place] [address] Dr. Karen Pierce EGFR-NON AF [place] 5 mL/min/1.73m2 Critically low >=60 [facility] Comment on above: Performed By: #### U A #### [facility] [address] [place] [address] Dr. Karen Pierce Globulin (S) [Mass/Vol] 4.6 g/dL Normal [facility] Comment on above: Performed By: #### U A #### [facility] [address] [address] [address] Karen Pierce Glucose [Mass/Vol] 114 mg/dL Critically high 74-106 [facility] Comment on above: Performed By: #### U A #### [facility] [address] [address] [address] Karen Pierce Potassium [Moles/Vol] 5.5 mmol/L Critically high 3.5-5.1 [facility] Comment on above: Performed By: #### U A #### [facility] [address] [address] [address] Karen Pierce Protein [Mass/Vol] 7.7 g/dL Normal 6.4-8.2 [facility] Comment on above: Performed By: #### U A #### [facility] [address] [address] [address] Karen Pierce Sodium [Moles/Vol] 136 mmol/L Normal 136-145 [facility] Comment on above: Performed By: #### U A #### [facility] [address] [address] [address] Karen Pierce Urea nitrogen [Mass/Vol] 134.0 mg/dL Critically high 7.0-18.0 [facility] Comment on above: Performed By: #### U A #### [facility] [address] [place] [address] Dr. Karen Pierce Urea nitrogen/Creatinine [Mass ratio] 14.0 mg/mg Normal [facility] Comment on above: Performed By: #### U A #### [facility] [address] [address] [address] Karen Pierce PROF CHEM 8 (BAS METB)on Anion gap [Moles/Vol] 12.6 mmol/L Normal [facility] Comment on above: Performed By: #### B MP #### [facility] [address] [place] [address] Dr. Karen Pierce Calcium [Mass/Vol] 8.7 mg/dL Normal 8.5-10.1 [facility] Comment on above: Performed By: #### B MP #### [facility] [address] [place] [address] Dr. Karen Pierce Chloride [Moles/Vol] 103 mmol/L Normal 98-107 [facility] Comment on above: Performed By: #### B MP #### [facility] [address] [address] [address] Karen Pierce CO2 [Moles/Vol] 27.3 mmol/L Normal 21.0-32.0 [facility] Comment on above: Performed By: #### B MP #### [facility] [address] [place] [address] Dr. Karen Pierce Creatinine [Mass/Vol] 1.26 mg/dL Normal 0.70-1.30 [facility] Comment on above: Performed By: #### B MP #### [facility] [address] [place] [address] Dr. Karen Pierce EGFR-AF VIET[place]ESE >60 Normal >=60 [facility] Comment on above: Performed By: #### B MP #### [facility] [address] [place] [address] Dr. Karen Pierce EGFR-NON AF [place] 55 mL/min/1.73m2 Critically low >=60 [facility] Comment on above: Performed By: #### B MP #### [facility] [address] [place] [address] Dr. Karen Pierce Glucose [Mass/Vol] 111 mg/dL Critically high 74-106 [facility] Comment on above: Performed By: #### B MP #### [facility] [address] [place] [address] Dr. Karen Pierce Potassium [Moles/Vol] 3.9 mmol/L Normal 3.5-5.1 [facility] Comment on above: Performed By: #### B MP #### [facility] [address] [place] [address] Dr. Karen Pierce Sodium [Moles/Vol] 139 mmol/L Normal 136-145 [facility] Comment on above: Performed By: #### B MP #### [facility] [address] [place], [place] [address] Dr. Karen Pierce Urea nitrogen [Mass/Vol] 21.0 mg/dL Critically high 7.0-18.0 [facility] Comment on above: Performed By: #### B MP #### [facility] [address] [place], [place] [address] Dr. Karen Pierce Urea nitrogen/Creatinine [Mass ratio] 16.7 mg/mg Normal [facility] Comment on above: Performed By: #### B MP #### [facility] [address] [place], [place] [address] Dr. Karen Pierce [facility] Metabolic Pane [facility] 05-11-2021 Albumin [Mass/Vol] 4.5 g/dL Normal 3.6-5.1 [facility] Comment on above: Performed By: #### C ROBYN, LIPD #### [facility] [address] [place], [place] [id number] Albumin/Globulin [Mass ratio] 2.0 {ratio} Normal 1.0-2.5 [facility] Comment on above: Performed By: #### C ROBYN, LIPD #### [facility] [address] [id number] ALP [Catalytic activity/Vol] 97 U/L Normal 40-129 [facility] Comment on above: Performed By: #### C MP, LIPD #### [facility] [address] [id number] ALT [Catalytic activity/Vol] 18 U/L Normal 9-46 [facility] Comment on above: Result Comment: 04/25 Female reference range changed. Performed By: #### C MP, LIPD #### [facility] [address] [place], [place] [id number] Anion gap [Moles/Vol] 17 mmol/L Normal 12-20 [facility] Comment on above: Result Comment: Effe ctive 05/31/2019 reference range changed. Performed By: #### C MP, LIPD #### [facility] [address] [facility] [id number] AST [Catalytic activity/Vol] 15 U/L Normal 10-40 [facility] Comment on above: Performed By: #### C MP, LIPD #### [facility] [address] [facility] [id number] Bilirubin [Mass/Vol] 0.55 mg/dL Normal 0.30-1.20 [facility] Comment on above: Performed By: #### C MP, LIPD #### [facility] [address] [facility] [id number] BUN/CREA 17 Ratio Normal 6-22 [facility] Comment on above: Performed By: #### C MP, LIPD #### [facility] [address] [facility] [place] [id number] Calcium [Mass/Vol] 9.8 mg/dL Normal 8.6-10.2 [facility] Comment on above: Performed By: #### C MP, LIPD #### [facility] [address] [place] [id number] Chloride [Moles/Vol] 106 mmol/L Normal 98-107 [facility] Comment on above: Performed By: #### C MP, LIPD #### [facility] [address] [facility] [id number] CO2 [Moles/Vol] 23 mmol/L Normal 20-31 [facility] Comment on above: Performed By: #### C MP, LIPD #### [facility] [address] [facility] [id number] Creatinine [Mass/Vol] 1.2 mg/dL Normal 0.7-1.4 [facility] Comment on above: Performed By: #### C MP, LIPD #### [facility] [address] [place], [place] [id number] eGFRAA 73 mL/min/1.73m2 Normal >60 [facility] Comment on above: Performed By: #### C MP, LIPD #### [facility] [address] [place], [place] [id number] eGFRNAA 60 mL/min/1.73m2 Low >60 [facility] Comment on above: Performed By: #### C MP, LIPD #### [facility] [address] [place], [place] [id number] Globulin (S) [Mass/Vol] 2.3 g/dL Normal 1.9-3.7 [facility] Specialist Comment on above: Performed By: #### C MP, LIPD #### [facility] [address] [place], [place] [id number] Glucose [Mass/Vol] 105 mg/dL High 65-99 [facility] Clinical Neuropsychologist Comment on above: Result Comment: For FASTING Glucose --- ADA reference ranges: Normal 65-99 mg/dl Prediabetes 100-125 Diabetes >/= 126 Performed By: #### C MP, LIPD #### [facility] [address] [place], [place] [id number] Potassium [Moles/Vol] 4.1 mmol/L Normal 3.5-5.5 [facility] Specialist Comment on above: Performed By: #### C MP, LIPD #### [facility] [address] [place], [place] [id number] Protein [Mass/Vol] 6.8 g/dL Normal 6.1-8.1 [facility] Clinical Neuropsychologist Comment on above: Performed By: #### C MP, LIPD #### [facility] [address] [place], [place] [id number] Sodium [Moles/Vol] 142 mmol/L Normal 135-146 [facility] Clinical Neuropsychologist Comment on above: Performed By: #### C MP, LIPD #### [facility] [address] [place], [place] [id number] Urea nitrogen [Mass/Vol] 20 mg/dL Normal 7-25 [facility] Specialist Comment on above: Performed By: #### C MP, LIPD #### [facility] [address] [place], [place] [id number] Lipid Panelon 05-11-2021 Cholesterol [Mass/Vol] 109 mg/dL Low 125-200 No [facility] Clinical Neuropsychologist Comment on above: Result Comment: Low risk < 200mg/dL Borderline risk 201-239 mg/dl High risk > or equal to 240 Performed By: #### C MP, LIPD #### [facility] [address] [place], [place] [id number] Cholesterol in HDL [Mass/Vol] 30 mg/dL Low >40 [facility] Specialist Comment on above: Result Comment: High Cardiovascular Risk HDL <40 mg/dL Low Cardiovascular Risk HDL > or equal to 60 mg/dl Performed By: #### C MP, LIPD #### [facility] [address] [place], [place] [id number] Cholesterol in LDL [Mass/Vol] 54 mg/dL Normal [facility] Specialist Comment on above: Result Comment: LDL ATP III CLASSIFICATION LDL less than 100 mg/dl Optimal LDL 100-129 mg/dl Near or above optimal LDL 130-159 Borderline high LDL 160-189 High LDL greater than 189 mg/dl Very High Performed By: #### C MP, LIPD #### [facility] [address] [place], [place] [id number] Cholesterol in VLDL [Mass/Vol] 25 mg/dL Normal [facility] Clinical Neuropsychologist Comment on above: Performed By: #### C MP, LIPD #### [facility] [address] [place], [place] [id number] Cholesterol.total/Sonya sterol in HDL [Mass ratio] 4 {ratio} Normal [facility] Specialist Comment on above: Performed By: #### C MP, LIPD #### [facility] [address] [place], [place] [id number] Triglyceride [Mass/Vol] 126 mg/dL Normal 30-150 N [facility] Specialist Comment on above: Result Comment: TRIG ATPIII CLASSIFICATIONS TRIG less than 150 mg/dl Normal TRIG 150-199 mg/dl Borderline High TRIG 200-500 mg/dl High TRIG greather than 500 mg/dl Very High Performed By: #### C MP, LIPD #### [facility] [address] [place], [place] [id number] Vital Signs Date Time Vital Sign Value Performing Clinician Facility 06-30-2023 14:17-0500 Blood Pressure Location Katia SAMUELS [facility] 06-30-2023 14:17-0500 Diastolic blood pressure 77 mm[Hg] Katia SAMUELS [facility] 06-30-2023 14:17-0500 Heart rate 70 /min Katia SAMUELS [facility] 06-30-2023 14:17-0500 Respiratory rate 16 /min Katia SAMUELS [facility] 06-30-2023 14:17-0500 Systolic blood pressure 109 mm[Hg] Katia SAMUELS [facility] 04-15-2023 14:00-0500 Body height 187.96 cm Celia Danielsfrancoise Other [employer] [facility] [employer] Other 04-15-2023 14:00-0500 Body mass index (BMI) [Ratio] 28.73 kg/m2 Jonhcelestino Akademoscatherines Other [employer] Other 04-15-2023 14:00-0500 Body temperature 96.8 [degF] Celia Ak[employer]oscatherines Other [employer] Other 04-15-2023 14:00-0500 Body weight 101.52 kg Celia Danielss Other [employer] Other 04-15-2023 14:00-0500 Diastolic blood pressure 100 mm[Hg] Azcelestino Terezacatherines Other [employer] Other 04-15-2023 14:00-0500 Respiratory rate 18 /min Azcelestnio Akademoshous Other [employer] Other 04-15-2023 14:00-0500 SaO2% (BldA) [Mass fraction] 96 % Azcelestino Akademoshous Other [employer] Other 04-15-2023 14:00-0500 Systolic blood pressure 161 mm[Hg] Celia Ramos Other [facility] [employer] Other 03-11-2023 13:38-0400 Blood Pressure Location Katia SAMUELS [facility] 03-11-2023 13:38-0400 Diastolic blood pressure 100 mm[Hg] Katia SAMUELS [facility] 03-11-2023 13:38-0400 Heart rate 72 /min Katia SAMUELS [facility] 03-11-2023 13:38-0400 Systolic blood pressure 150 mm[Hg] Katia SAMUELS [facility] 01-22-2023 09:57-0400 Body height 187.96 cm Stanley Emerson Work Phone: [facility] 250 DO Work Phone: 01-22-2023 09:57-0400 Body mass index (BMI) [Ratio] 27.35 kg/m2 Stanley Emerson Work Phone: [facility] 250 DO Work Phone: 01-22-2023 09:57-0400 Body surface area Derived from formula 2.23 m2 Stanley Emerson Work Phone: [facility] 250 DO Work Phone: 01-22-2023 09:57-0400 Body weight 96.62 kg Stanley Emerson Work Phone: [facility] 250 DO Work Phone: 01-22-2023 09:57-0400 Diastolic blood pressure 88 mm[Hg] Stanley Emerson Work Phone: [facility] 250 DO Work Phone: 01-22-2023 09:57-0400 Heart rate 72 /min Stanley Emerson Work Phone: [facility] 250 DO Work Phone: 01-22-2023 09:57-0400 Systolic blood pressure 126 mm[Hg] Stanley Emerson Work Phone: [facility] 250 DO Work Phone: 08-21-2022 14:30-0400 Body height 187.96 cm Carlene Kasper Other [employer] Other 08-21-2022 14:30-0400 Body mass index (BMI) [Ratio] 26.32 kg/m2 Carlene Kasper Other [employer] Other 08-21-2022 14:30-0400 Body temperature 97.8 [degF] Carlene Kasper Other [employer] Other 08-21-2022 14:30-0400 Body weight 92.99 kg Carlene Ranjith Other [employer] Other 08-21-2022 14:30-0400 Diastolic blood pressure 82 mm[Hg] Carlene Kasper Other [employer] Other 08-21-2022 14:30-0400 SaO2% (BldA) [Mass fraction] 96 % Carlene Kasper Other [employer] Other 08-21-2022 14:30-0400 Systolic blood pressure 124 mm[Hg] Carlene Kasper Other [employer] Other 07-31-2022 07:25-0500 Blood Pressure Location Katia SAMUELS [facility] 07-31-2022 07:25-0500 Diastolic blood pressure 89 mm[Hg] Katia SAMUELS [facility] 07-31-2022 07:25-0500 Heart rate 70 /min Katia SAMUELS [facility] 07-31-2022 07:25-0500 Respiratory rate 16 /min Katia SAMUELS [facility] 07-31-2022 07:25-0500 Systolic blood pressure 130 mm[Hg] Katia SAMUELS [facility] 07-25-2022 09:45-0500 Body height 187.96 cm Margarito Valentine Other [employer] [facility] [employer] Other 07-25-2022 09:45-0500 Body mass index (BMI) [Ratio] 26.32 kg/m2 Margarito Valentine Other [employer] [facility] [employer] Other 07-25-2022 09:45-0500 Body temperature 96.2 [degF] Margarito Valentine Other [employer] Other 07-25-2022 09:45-0500 Body weight 92.99 kg Margarito Valentine Other [employer] Other 07-25-2022 09:45-0500 Diastolic blood pressure 60 mm[Hg] Margarito Valentine Other [employer] Other 07-25-2022 09:45-0500 SaO2% (BldA) [Mass fraction] 97 % Margarito Valentine Other [employer] [facility] [employer] Other 07-25-2022 09:45-0500 Systolic blood pressure 110 mm[Hg] Margarito Valentine Other [employer] [facility] [employer] Other 07-03-2022 07:34-0500 Body temperature 98.9 [degF] MD Stanley Emerson Work Phone: [facility] 07-03-2022 07:34-0500 Diastolic blood pressure 91 mm[Hg] MD Stanley Emerson Work Phone: [facility] 07-03-2022 07:34-0500 Heart rate 87 /min MD Stanley Emerson Work Phone: [facility] 07-03-2022 07:34-0500 Respiratory rate 18 /min MD Stanley Emerson Work Phone: [facility] 07-03-2022 07:34-0500 SaO2% (BldA) [Mass fraction] 94 % MD Stanley Emerson Work Phone: [facility] 07-03-2022 07:34-0500 Systolic blood pressure 159 mm[Hg] MD Stanley Emerson Work Phone: [facility] 07-03-2022 05:46-0500 Body weight 94 kg MD Stanley Emerson Work Phone: [facility] 07-02-2022 16:27-0500 Inhaled oxygen flow rate 6 L/min MD Stanley Emerson Work Phone: [facility] 07-02-2022 10:06-0500 Body height 185.42 cm MD Stanley Emerson Work Phone: [facility] 07-02-2022 10:06-0500 Body mass index (BMI) [Ratio] 27.3 kg/m2 MD Stanley Emerson Work Phone: [facility] 06-19-2022 10:00-0500 Body height 187.96 cm Margarito Valentine Other [employer] Other 06-19-2022 10:00-0500 Body mass index (BMI) [Ratio] 26.32 kg/m2 Margarito Valentine Other [employer] Other 06-19-2022 10:00-0500 Body temperature 97.8 [degF] Margarito Valentine Other [employer] Other 06-19-2022 10:00-0500 Body weight 92.99 kg Margarito Valentine Other [employer] Other 06-19-2022 10:00-0500 Diastolic blood pressure 68 mm[Hg] Margarito Valentine Other [employer] Other 06-19-2022 10:00-0500 SaO2% (BldA) [Mass fraction] 95 % Margarito Valentine Other [employer] Other 06-19-2022 10:00-0500 Systolic blood pressure 108 mm[Hg] Margarito Valentine Other [employer] Other 06-12-2022 13:07-0500 Body height 187.96 cm MD Stanley Emerson Work Phone: [facility] 06-12-2022 13:07-0500 Body weight 93.44 kg MD Stanley Emerson Work Phone: [facility] 06-06-2022 12:00-0500 Body height 187.96 cm Margarito Valentine Other [employer] Other 06-06-2022 12:00-0500 Body mass index (BMI) [Ratio] 26.32 kg/m2 Margarito Topetesarina Other [employer] Other 06-06-2022 12:00-0500 Body temperature 97.2 [degF] Margarito Topetesarina Other [employer] Other 06-06-2022 12:00-0500 Body weight 92.99 kg Margarito Topetesarina Other [employer] Other 06-06-2022 12:00-0500 Diastolic blood pressure 70 mm[Hg] Margarito Serge Other [employer] Other 06-06-2022 12:00-0500 SaO2% (BldA) [Mass fraction] 98 % Margarito Topetesarina Other [employer] Other 06-06-2022 12:00-0500 Systolic blood pressure 108 mm[Hg] Margarito Topetesarina Other [employer] Other 06-04-2022 12:00-0500 Body height 187.96 cm Celia StarksVitasol Other [employer] Other 06-04-2022 12:00-0500 Body mass index (BMI) [Ratio] 26.42 kg/m2 Celia Glad to Have Yous Other [employer] Other 06-04-2022 12:00-0500 Body temperature 96.6 [degF] Celia Dianwoba Other [employer] Other 06-04-2022 12:00-0500 Body weight 93.35 kg Jonhcelestino Dianwoba Other [facility] [employer] Other 06-04-2022 12:00-0500 Diastolic blood pressure 70 mm[Hg] Celia Ramos Other [employer] Other 06-04-2022 12:00-0500 Respiratory rate 20 /min Celia Ramos Other [employer] Other 06-04-2022 12:00-0500 SaO2% (BldA) [Mass fraction] 98 % Celia Ramos Other [employer] Other 06-04-2022 12:00-0500 Systolic blood pressure 100 mm[Hg] Celia Ramos Other [employer] Other 06-03-2022 15:38-0500 Body height 187.96 cm Stanley Emerson Work Phone: [facility] [employer] 250 DO Work Phone: 06-03-2022 15:38-0500 Body mass index (BMI) [Ratio] 26.45 kg/m2 Stanley Emerson Work Phone: [facility] [employer] 250 DO Work Phone: 06-03-2022 15:38-0500 Body surface area Derived from formula 2.2 m2 Stanley Emerson Work Phone: [facility] [employer] 250 DO Work Phone: 06-03-2022 15:38-0500 Body weight 93.44 kg Stanley Emerson Work Phone: [facility] 250 DO Work Phone: 06-03-2022 15:38-0500 Diastolic blood pressure 78 mm[Hg] Stanley Emerson Work Phone: [facility] 250 DO Work Phone: 06-03-2022 15:38-0500 Heart rate 71 /min Stanley Emerson Work Phone: [facility] 250 DO Work Phone: 06-03-2022 15:38-0500 Systolic blood pressure 106 mm[Hg] Stanley Emerson Work Phone: [facility] 250 DO Work Phone: 05-22-2022 11:53-0500 Body temperature 98.8 [degF] MD Stanley Emerson Work Phone: [facility] 05-22-2022 11:53-0500 Diastolic blood pressure 72 mm[Hg] MD Stanley Emerson Work Phone: [facility] 05-22-2022 11:53-0500 Heart rate 78 /min MD Stanley Emerson Work Phone: [facility] 05-22-2022 11:53-0500 Respiratory rate 16 /min MD Stanley Emerson Work Phone: [facility] 05-22-2022 11:53-0500 SaO2% (BldA) [Mass fraction] 97 % MD Stanley Emerson Work Phone: [facility] 05-22-2022 11:53-0500 Systolic blood pressure 108 mm[Hg] MD Stanley Emerson Work Phone: [facility] 05-22-2022 06:02-0500 Body weight 88.8 kg MD Stanley Emerson Work Phone: [facility] 05-21-2022 11:48-0500 63 1 Stanley Emerson Work Phone: [facility] 250 DO Work Phone: Comment on above: [id number] 05-17-2022 12:08-0500 Body height 187.96 cm MD Stanley Emerson Work Phone: [facility] Encounters Encounter Date Encounter Type Care Provider Facility Start: 07-01-2023 End: 07-02-2023 ambulatory Katiadesi SAMUELS Facility:[facility] Start: 06-30-2023 End: 07-01-2023 ambulatory Katia SAMUELS Facility:[facility] Start: 06-30-2023 End: 06-30-2023 Patient encounter procedure Katia SAMUELS [facility] Start: 06-16-2023 End: 06-17-2023 ambulatory Katiadesi SAMUELS Facility:[facility] Start: 06-16-2023 End: 06-16-2023 Patient encounter procedure Katia SAMUELS [facility] Start: 06-10-2023 End: 06-11-2023 ambulatory Katia SAMUELS Facility[facility] Start: 06-10-2023 End: 06-10-2023 Patient encounter procedure Katia SAMUELS [facility] Start: 05-28-2023 End: 05-28-2023 ambulatory STANLEY EMERSON Not Available Start: 05-12-2023 End: 05-12-2023 ambulatory STANLEY EMERSON Not Available Start: 05-06-2023 End: 05-06-2023 ambulatory Azcelestino Bakhous Other [employer] Other Start: 05-06-2023 Telephone encounter Aziz Bakhous [facility] Start: 04-16-2023 End: 04-16-2023 ambulatory Aziz Bakhous Other [employer] Other Start: 04-16-2023 Telephone encounter Aziz Bakhous [facility] Start: 04-15-2023 End: 04-15-2023 ambulatory Celia Ramos Other [facility] [employer] Other Start: 04-15-2023 Office outpatient vi sit 25 minutes Celia Ramos [facility] Start: 04-08-2023 End: 04-08-2023 ambulatory Teo Stokes Facility:[facility] Start: 04-08-2023 End: 04-08-2023 ambulatory MD Stanley Emerson Work Phone: [facility] Work Phone: Start: 04-08-2023 End: 04-08-2023 Patient encounter procedure MD Stanley Emerson Work Phone: [facility]-Lab [facility] Start: 03-11-2023 End: 03-12-2023 ambulatory Katia SAMUELS Facility:[facility] Start: 03-11-2023 End: 03-11-2023 Lab Drop off Katia SAMUELS [facility] Start: 03-11-2023 End: 03-11-2023 Patient encounter procedure Katia SAMUELS [facility] Start: 01-22-2023 Office outpatient vi sit 25 minutes Stanley Emerson Work Phone: [place] [address] DO Work Phone: Start: 01-22-[address] Teo Stokes Facility: Start: 12-25-2022 End: 12-26-2022 ambulatory Katia SAMUELS Facility:[facility] Start: 12-25-2022 End: 12-25-2022 Patient encounter procedure Katia SAMUELS [facility] Start: 12-10-2022 End: 12-11-2022 ambulatory Katia SAMUELS Facility:[facility] Start: 12-10-2022 End: 12-10-2022 Lab Drop off Katia SAMUELS [facility] Start: 12-10-2022 End: 12-11-2022 ambulatory Katia Isabel ARLENE Facility:[facility] Start: 12-10-2022 End: 12-10-2022 Patient encounter procedure Katia Hall SAMUELS [facility] [place] Start: 10-04-2022 End: 10-05-2022 ambulatory Katia Hall ARLENE Facility:[facility] Start: 10-04-2022 End: 10-04-2022 Patient encounter procedure Katia SAMUELS [facility] [place] Start: 09-18-2022 End: 09-19-2022 ambulatory Katia R SAMUELS Facility: [place] Start: 09-18-2022 End: 09-18-2022 Patient encounter procedure Katia SAMUELS [facility] [place] Start: 09-15-2022 End: 09-15-[address] STANLEY EMERSON . Facility:[facility] Start: 09-12-2022 End: 09-13-[address] STANLEY EMERSON . Facility:[facility] Start: 09-08-2022 Encounter for preprocedural laboratory examination CELIA RAMOS [facility] Start: 09-04-2022 End: 09-05-[address] STANLEY EMERSON . Facility:[facility] Start: 09-04-2022 Encounter for preprocedural cardiovascular examination DR KATIA SAMUELS . [facility] Start: 09-02-2022 End: 09-03-[address] STANLEY EMERSON . Facility:[facility] Start: 09-02-2022 End: 09-03-2022 Encounter for preprocedural laboratory examination DR STANLEY EMERSON . Facility:[facility] Start: 09-02-2022 End: 09-03-[address] STANLEY EMERSON . Facility:[facility] Start: 09-02-2022 End: 09-03-2022 Encounter for preprocedural cardiovascular examination DR STANLEY EMERSON . Facility:[facility] Start: 08-21-2022 End: 08-21-2022 ambulatory Carlene Kasper Other [employer] Other Start: 08-21-2022 Follow-up encounter Carlene Dickerson [facility] Start: 08-16-2022 End: 08-16-2022 ambulatory Stanley Emerson Facility:[facility] Start: 08-16-2022 End: 08-16-2022 ambulatory MD Stanley Emerson Work Phone: [facility] Work Phone: Start: 08-16-2022 End: 08-16-2022 Patient encounter procedure MD Stanley Emerson Work Phone: [facility]-CT Scan [facility] [place] Work Phone: Start: 07-31-2022 End: 08-01-2022 ambulatory Katia SAMUELS Facility:[facility] Start: 07-31-2022 End: 07-31-2022 Patient encounter procedure Katia SAMUELS [facility] [place] Start: 07-25-2022 End: 07-25-2022 ambulatory Margarito Valentine Other [employer] Other Start: 07-25-2022 Postop follow up vis it related to original px Margarito Valentine [facility] V[facility] Surgery Start: 07-24-2022 End: 07-24-2022 ambulatory Stanley Emerson Facility:[facility] Start: 07-24-2022 End: 07-24-2022 ambulatory MD Stanley Emerson Work Phone: [facility] Work Phone: Start: 07-24-2022 End: 07-24-2022 Patient encounter procedure MD Stanley Emerson Work Phone: [facility]-MRI [facility] [place] Work Phone: Start: 07-02-2022 End: 07-03-2022 Evaluation and management of inpatient MD Stanley Emerson Work Phone: [facility] Work Phone: Start: 06-21-2022 End: 06-21-2022 Patient encounter procedure MD Stanley Emerson Work Phone: [facility]-Pre-Surgical Testing Work Phone: Start: 06-19-2022 End: 06-19-2022 ambulatory Margarito Valentine Other [employer] Other Start: 06-19-2022 Office outpatient vi sit 25 minutes Margarito Valentine [facility] Vascular Surgery Start: 06-12-2022 End: 06-12-2022 ambulatory MD Stanley Emerson Work Phone: [facility] Work Phone: Start: 06-12-2022 End: 06-12-2022 Patient encounter procedure MD Stanley Emerson Work Phone: [facility]-CT Scan [facility] [place] Work Phone: Start: 06-11-2022 End: 06-11-2022 Patient encounter procedure HEATHER SCHWAB [facility] Start: 06-06-2022 End: 06-06-2022 ambulatory Margarito Valentine Other [employer] Other Start: 06-06-2022 Office outpatient vi sit 25 minutes Margarito Valentine [facility] Vascular Surgery Start: 06-04-2022 End: 06-04-2022 ambulatory Celia Ramos Other [facility] [employer] Other Start: 06-04-2022 Office outpatient vi sit 25 minutes Celia Ramos [facility] Nephrology Tom Start: 06-03-2022 Office outpatient vi sit 25 minutes Stanley Emerson Work Phone: [facility] 250 DO Work Phone: Start: 06-03-[address] Stanley Emerson Facility: Start: 05-21-[address] Stanley Emerson Facility:[id number] Start: 05-20-[address] Stanley Emerson Facility:[id number] Start: 05-19-[address] Teo Stokes Facility:[id number] Start: 05-18-[address] Teo Stokes Facility:[id number] Start: 05-17-[address] Stanley Emerson Facility:[id number] Start: 05-17-2022 Bradyarrhythmia MD Stanley billingsley Work Phone: [facility] Start: 05-17-[address] Teo Stokes Facility:[id number] Start: 05-16-2022 End: 05-22-2022 Encounter for preprocedural cardiovascular examination MD Stanley Emerson Work Phone: [facility] Start: 05-16-2022 End: 05-22-2022 Evaluation and management of inpatient MD Stanley Emerson Work Phone: [facility] [place] [facility] Work Phone: Start: 05-16-2022 End: 05-16-[address] STANLEY EMERSON . Facility:[facility] Start: 05-15-2022 End: 05-16-[address] STANLEY EMERSON . Facility:[facility] Start: 01-04-2022 End: 01-04-[address] STANLEY EMERSON . Facility:[facility] Patient encounter status Stanley Emerson Work Phone: [facility] 250 DO Work Phone: End: 01-22-2023 Patient encounter status [facility] Work [facility]: Procedures Date Procedure Procedure Detail Performing Clinician Start: 03-11-2023 Cystoscope, device (physical object) Katia ARLENE Start: 09-12-2022 Transurethral resect ion of bladder neoplasm Katia SAMUELS Start: 08-16-2022 Computed tomography angiography of abdominal and/or pelvic blood vessel MD Stanley Emerson Work Phone: Start: 07-31-2022 Cystoscopy Katia LORENZO Start: 07-02-2022 Endovascular repair of abdominal aortic aneurysm MD Stanley Emerson Work Phone: Start: 06-12-2022 Computed tomography angiography of abdominal and/or pelvic blood vessel MD Stanley Emerson Work Phone: Start: 05-21-2022 Radionuclide myocard ial perfusion stress study MD Stanley Emerson Work Phone: Start: 05-20-2022 Ova and Parasite Result 1 MD Stanley Emerson Work Phone: Start: 05-20-2022 Ova OR parasites identification MD Stanley Emerson Work Phone: Start: 05-18-2022 Urine culture MD Stanley Emerson Work Phone: Cataract surgery Stanley barclay Work Phone: Insertion of stent i n inferior vena cava Stanley Emerson Work Phone: Operation on bladder Stanley Emerson Work Phone: Urinary catheter placement Stanley Emerson Work Phone: NEGATED: Highlighted row has not occurred! Colonoscopy Stanley Emerson Work Phone: Plan of Treatment Date Care Activity Detail Author Start: 01-21-2024 FUV, Provider: Teo Stokes, Status: Pen, Time: 11:50 AM FUV, Provider: Teo Stokes, Status: Pen, Time: 11:50 AM [facility] 250 DO Work Phone: Start: 04-08-2023 Bacteria identified in Urine by Culture [facility] Start: 12-10-2022 FUV, Provider: Teo Stokes, Status: Pen, Time: 10:10 AM FUV, Provider: Teo Stokes, Status: Pen, Time: 10:10 AM [facility] 250 DO Work Phone: Start: 07-24-2022 MR Abdomen WO and W contrast IV [facility] Start: 07-24-2022 MRI of abdomen with contrast MR abdomen wo/w con [facility] Start: 07-03-2022 [facility] Start: 07-02-2022 Fluoroscopy of Aorta and Bilateral Lower Extremity Arteries using Low Osmolar Contrast Fluoroscopy of Aorta and Bilateral Lower Extremity Arteries using Low Osmolar Contrast [facility] Start: 07-02-2022 Restriction of Abdominal Aorta with Intraluminal Device, Percutaneous Approach Restriction of Abdominal Aorta with Intraluminal Device, Percutaneous Approach [facility] Start: 05-22-2022 [facility] Start: 05-20-2022 Evaluation procedure [facility] Start: 05-19-2022 [facility] Start: 05-17-2022 End: 05-17-2022 [facility] Start: 05-16-2022 Referral to outreach specialist [facility] Start: 05-16-2022 Referral to vascular surgeon [facility] Start: 05-16-2022 Hospital admission [facility] Patient Education [facility] Work Phone: Patient referral [facility] Work Phone: [facility] Immunizations Immunization Date Immunization Notes Care Provider Markus russell 03-29-2022 Pfizer COVID-19 Vac Bivalent 30 MCG/0.3ML Intramuscular Suspension Stanley Emerson Work Phone: [facility] 03-16-2022 influenza virus vacc ine, unspecified formulation Katia SAMUELS [facility] 03-16-2022 influenza, seasonal, injectable Stanley Emerson Work Phone: [facility] 250 DO Work Phone: 03-06-2022 Fluzone High-Dose Quadrivalent 0.7 ML Intramuscular Suspension Prefilled Syringe Stanley Emerson Work Phone: [facility] 250 DO Work Phone: 03-06-2022 influenza virus vacc ine, unspecified formulation HEATHER SCHWAB [facility] 10-03-2021 Comirnaty 30 MCG/0.3 ML Intramuscular Suspension Stanley Emerson Work Phone: [facility] 250 DO Work Phone: 10-03-2021 COVID-19 mRNATaniya (Pfizer) MD Stanley Emerson Work Phone: [facility] 10-03-2021 SARS-CoV-2 mRNA (oqsotejlxqn-rnti-jnofbu e) vaccine HEATHER SCHWAB [facility] 04-23-2021 pneumococcal polysaccharide vaccine, 23 valent Stanley Emerson Work Phone: [facility] 02-22-2021 influenza virus vacc ine, unspecified formulation Katia SAMUELS [facility] 02-22-2021 influenza, injectabl e, quadrivalent, preservative free Stanley Emerson Work Phone: [facility] 250 DO Work Phone: 02-21-2021 Pfizer-BioNTech COVI D-19 Vacc 30 MCG/0.3ML Intramuscular Suspension [employer] Work Phone: [facility] Comment on above: Result Comment: 2022: [id number] 07-28-2020 Pfizer-BioNTech COVI D-19 Vacc 30 MCG/0.3ML Intramuscular Suspension [employer] Work Phone: [facility] 07-07-2020 Pfizer-BioNTech COVI D-19 Vacc 30 MCG/0.3ML Intramuscular Suspension [employer] Work Phone: [facility] 02-22-2020 influenza virus vacc ine, unspecified formulation HEATHER SCHWAB [facility] 02-22-2020 Seasonal, quadrivale nt, recombinant, injectable influenza vaccine, preservative free [employer] Work Phone: [facility] 250 DO Work Phone: Payers Date Payer Category Payer Self-pay 2017 Medicare [id number] 1959 Medicare [id number] 1959 Private Health Insurance [id number] 1943 Unknown [id number] 2.16.840.1.946314.3.579.2.593 1943 Unknown [id number] 2.16.840.1.968978.3.579.2.593 1943 Unknown [id number] 2.16.840.1.107035.3.579.2.593 1943 Unknown [id number] 2.16.840.1.869307.3.579.2.593 1943 Unknown [id number] 2.16.840.1.188263.3.579.2.593 1943 Unknown [id number] 2.16.840.1.699787.3.579.2.593 1943 Unknown [id number] 2.16.840.1.070583.3.579.2.593 1943 Unknown [id number] 2.840.1.645153.3.579.2.593 1943 Unknown [id number] 2.840.1.794475.3.579.2.356 1943 Unknown [id number] 2.840.1.817868.3.579.2.356 1943 Unknown [id number] 2.840.1.075669.3.579.2.356 1943 Unknown [id number] 2.840.1.863229.3.579.2.356 1943 Unknown [id number] 2.840.1.741609.3.579.2.356 1943 Unknown [id number] 2.840.1.583702.3.579.2.356 1943 Unknown [id number] 2.840.1.672166.3.579.2.356 1943 Unknown [id number] 2.840.1.160562.3.579.2.356 1943 Unknown [id number] 2.840.1.663815.3.579.2.125 9 1943 Unknown [id number] 2.840.1.352998.3.579.2.125 9 1943 Unknown [id number] 2.16.840.1.365858.3.579.2.727 1943 Unknown [id number] 2.16.840.1.549812.3.579.2.727 1943 Unknown [id number] 2.16.840.1.146027.3.579.2.727 1943 Unknown [id number] 2.16.840.1.325955.3.579.2.72 1943 Unknown [id number] 2.16.840.1.480273.3.579.2.72 1943 Unknown [id number] 2.16.840.1.622149.3.579.2.72 1943 Unknown [id number] 2.16840.1.478210.3.579.2.72 1943 Unknown [id number] 2.16.840.1.367026.3.579.2.727 1943 Unknown [id number] 2.16.840.1.402056.3.579.2.72 1943 Unknown [id number] 2.16.840.1.904766.3.579.2.727 1943 Unknown [id number] 2.16.840.1.862400.3.579.2.72 1943 Unknown [id number] 2.16.840.1.739992.3.579.2.727 1943 Unknown [id number] 2.16.840.1.878609.3.579.2.727 Medicare Medicare Nonpatient [id number] Unknown Unknown [employer] [id number] Unknown [id number] 2.16840.1.163930.3.579.2.531 Unknown [id number] 2.16.840.1.405712.3.579.2.531 Unknown [id number] 2.16.840.1.192818.3.579.2.531 Social History Date Type Detail Facility Daily caffeine consumption Daily caffeine consumption -[facility] 250 DO Work Phone: Comment on above: 3-4 cups coffee kellen y; 05/17/23 quit; 1/2 dozen cigarettes ; Start: 06-11-2022 End: 03-11-2023 Tobacco smoking status Heavy tobacco smoker (finding) [facility] [place] Sex Assigned At Male [facility] Start: 05-17-2022 [facility] Start: 1945 Sex Assigned At Male [facility] Start: 07-02-2022 End: 07-02-2022 Tobacco smoking status NHIS Ex-smoker (finding) [facility] Tobacco smoking status Never [facility] Medical Equipment Procedure Code Equipment Code Equipment Origin al Text Equipment Identifier Dates Percutaneous endovascular repair of abdominal aortic aneurysm (AAA) Abdominal aorta endovascular stent-graft [id number] FDA Start: 07-02-2022 Percutaneous endovascular repair of abdominal aortic aneurysm (AAA) Abdominal aorta endovascular stent-graft ()[id number] FDA Start: 07-02-2022 Percutaneous endovascular repair of abdominal aortic aneurysm (AAA) Abdominal aorta endovascular stent-graft ()[id number] FDA Start: 07-02-2022 Percutaneous endovascular repair of abdominal aortic aneurysm (AAA) Soft-tissue/mesh anchor, non-bioabsorbable ()[id number] FDA Start: 07-02-2022 Goals Date Patient Goal Desired Activity /State Functional Status Date Assessment Result Facility 06-30-2023 Functional Status N/A [facility] [place] 06-10-2023 Functional Status N/A [facility] 03-11-2023 Functional Status N/A [facility] 12-10-2022 Functional Status N/A [facility] 09-18-2022 Functional Status N/A [facility] 07-31-2022 Functional Status N/A [facility] 07-03-2022 Functional status Patient at Baseline [facility] Work Phone: 06-11-2022 Functional Status N/A [facility] 05-16-2022 Functional status Patient Not at Baseline [facility] Work Phone: Mental Status Date Assessment Result Facility 07-03-2022 Cognitive function Cognitive Sta tus Patient at Baseline [facility] Work Phone: 05-16-2022 Cognitive function Cognitive Sta tus Patient at Baseline [facility] Work Phone: Clinical Notes 06-04-2022 to 06-30-2023 Note Date & Type Note Facility 06-30-2023 Hospital Discharg e instructions Patient Education 06/30/2023 14:29:22 Acute Urinary Retention, Male Acute Urinary Retention, Male Acute urinary retention is a condition in which a person is unable to pass urine or can only pass a little urine. This condition can happen suddenly and last for a short time. If left untreated, it can become long-term (chronic) and result in kidney damage or other serious complications. What are the causes? This condition may be caused by: Obstruction or narrowing of the tube that drains the bladder (urethra). This may be caused by surgery, problems with nearby organs, or injury to the bladder or urethra. Problems with the nerves in the bladder. Tumors in the area of the pelvis, bladder, or urethra. Certain medicines. Bladder or urinary tract infection. Constipation. What increases the risk? This condition is more likely to develop in older men. As men age, their prostate may become larger and may start to press or squeeze on the bladder or the urethra. Other chronic health conditions can increase the risk of acute urinary retention. These include: Diseases such as multiple sclerosis. Spinal cord injuries. Diabetes. Degenerative cognitive conditions, such as delirium or dementia. Psychological conditions. A man may hold his urine due to trauma or because he does not want to use the bathroom. What are the signs or symptoms? Symptoms of this condition include: Trouble urinating. Pain in the lower abdomen. How is this diagnosed? This condition is diagnosed based on a physical exam and your medical history. You may also have other tests, including: An ultrasound of the bladder or kidneys or both. Blood tests. A urine analysis. Additional tests may be needed, such as a CT scan, MRI, and kidney or bladder function tests. How is this treated? Treatment for this condition may include: Medicines. Placing a thin, sterile tube (catheter) into the bladder to drain urine out of the body. This is called an indwelling urinary catheter. After it is inserted, the catheter is held in place with a small balloon that is filled with sterile water. Urine drains from the catheter into a collection bag outside of the body. Behavioral therapy. Treatment for other conditions. If needed, you may be treated in the hospital for kidney function problems or to manage other complications. Follow these instructions at home: Medicines Take zoqs-clm-ctbnenk and prescription medicines only as told by your health care provider. Avoid certain medicines, such as decongestants, antihistamines, and some prescription medicines. Do not take any medicine unless your health care provider approves. If you were prescribed an antibiotic medicine, take it as told by your health care provider. Do not stop using the antibiotic even if you start to feel better. General instructions Do not use any products that contain nicotine or tobacco. These products include cigarettes, chewing tobacco, and vaping devices, such as e-cigarettes. If you need help quitting, ask your health care provider. Drink enough fluid to keep your urine pale yellow. If you have an indwelling urinary catheter, follow the instructions from your health care provider. Monitor any changes in your symptoms. Tell your health care provider about any changes. If instructed, monitor your blood pressure at home. Report changes as told by your health care provider. Keep all follow-up visits. This is important. Contact a health care provider if: You have uncomfortable bladder contractions that you cannot control (spasms). You leak urine with the spasms. Get help right away if: You have chills or a fever. You have blood in your urine. You have a catheter and the following happens: ?Your catheter stops draining urine. ?Your catheter falls out. Summary Acute urinary retention is a condition in which a person is unable to pass urine or can only pass a little urine. If left untreated, this condition can result in kidney damage or other serious complications. An enlarged prostate may cause this condition. As men age, their prostate gland may become larger and may press or squeeze on the bladder or the urethra. Treatment for this condition may include medicines and placement of an indwelling urinary catheter. Monitor any changes in your symptoms. Tell your health care provider about any changes. This information is not intended to replace advice given to you by your health care provider. Make sure you discuss any questions you have with your health care provider. Document Revised: 01/31/2021 Document Reviewed: 01/31/2021 e27 Patient Education 2022 [employer]. Follow Up Care 05/06/2023 11:11:29 With:ARLENE CASILLAS, Katia Hall, URL Address: [facility] [address] , [place] [phone] When: Unknown Comments:1 day for catheter removal [facility] 06-10-2023 Note [id number] [facility] 06-10-2023 Hospital Discharg e instructions Patient Education 06/10/2023 15:16:23 [facility] - Re[facility] Discharge Instructions (CUSTOM) [facility] Post-Procedure Instructions General Recommendations 1. Drink some extra fluids (water preferred) for the first few days following the procedure. Avoid alcohol and caffeine until your irritative symptoms have resolved. 2. Take the medication as prescribed by your doctor. Usually this will include an antibiotic, pain medication or antispasmodic if needed. 3. Avoid lifting heavy objects (>10 lbs) or excessive straining as this may cause bleeding in the first week after surgery. 4. Catheter instructions: You will go home with a Zapien catheter attached to a catheter bag. Follow your doctor s instructions. 5. You may resume your normal diet. Common Treatment Related Symptoms The following are common treatment related signs and symptoms that you may experience after the procedure. They may also occur following removal of the catheter. After the procedure, your general urinary symptoms may temporarily worsen and then gradually improve. 1. Blood in the Urine. It is common to see some blood in the urine for 1 to 2 weeks. Limit any physical activities and drink some extra water to flush the bladder but you do not need to drink excessively or be alarmed. If you think the bleeding is excessive or you are having trouble urinating, call the number below. 2. Painful Urination. It is common to have some pain or burning with urination for 1 to 2 weeks. It should gradually improve. If it persists or starts to worsen, call the number below. 3. Slow Urinary Stream. After the procedure, swelling of the prostate occurs which may or may not make the urinary stream weaker. This should gradually improve. If you are having a lot of difficulty trying to urinate or cannot urinate, call your doctor. 4. Urinary Urgency, Frequency or Leakage. You may experience frequency and/or a strong urge to urinate while the prostate heals. Sometimes, you may find the urge is so strong that it is difficult to hold your urine and leakage can occur. 6. Blood in the Semen. This may occur up to several weeks following the procedure. The semen may have red or a brandy color. This condition will almost always resolve without any treatment. You should not be alarmed. Frequently Asked Questions Your Treating Doctor may override these recommendations. You should follow his/her instructions. 1. When can I resume normal physical activities? You may resume your daily activities immediately. You should limit vigorous workouts such as bike riding, running, treadmills, and heavy weight lifting for the first week. If you experience any bleeding, limit your activities and increase your water intake. 2. When can I resume sexual activity? In general, once you do not see any blood in the urine you may resume sexual activity. You may experience blood in the semen as described in the Common Treatment Related Symptoms section. 3. When can I resume my medications including blood thinners? In general, you should continue with any of your regular medications but check with your doctor. Typically, you can resume any blood thinners immediately post procedure but check with your doctor. 4. When can I go back to work? In general, you can return to work the following day. If you are taking pain medication (narcotics) or have a physical job (lifting, construction work, etc.), check with your doctor. 5. When can I have an alcoholic beverage? You should avoid any alcohol until your irritative symptoms have resolved, typically 1-2 weeks. Alcohol is a bladder irritant and can worsen your symptoms. You should also follow the instructions regarding alcohol intake on the labels of your prescription medication. Contact your Doctor Immediately If you experience: 1. Fever (oral temperature = 101 F), chills may be signs of an infection. 2. Inability to urinate. 3. Foul smelling or cloudy urine. 4. While there may be some pain related to the procedure, it is usually not severe. If you are experiencing severe pain or any condition you think may be serious, call your doctor. 5. If unable to contact your physician and you feel it is an emergency, go to the nearest emergency room or call 911. Zapien Catheter Care, Male A Zapien catheter is a soft, flexible tube that is placed into the bladder to drain urine. The catheter has a balloon to hold it inside the bladder. A Zapien catheter may be inserted if: You leak urine or are not able to control when you urinate (urinary incontinence). You are not able to urinate when you need to (urinary retention). You had prostate surgery or surgery on the genitals. You have certain medical conditions, such as multiple sclerosis, dementia, or a spinal cord injury. To Prevent Infection: 1. Wash your hands with soap and water before and after handling your catheter. 2. Using mild soap and warm water on a clean washcloth; twice a day. Clean the area on your body closest to the catheter insertion site using a circular motion, moving away from the catheter. Never wipe toward the catheter because this could sweep bacteria up into the urethra and cause infection. Remove all traces of soap. Pat the area dry with a clean towel and reposition the foreskin. No tub baths. No lotions, powders, or sprays unless directed by your physician. 3. Keep the tube secure. Do not let the tube pull or catch when you are moving around. Attach the catheter to your leg so there is no tension on the catheter. Use adhesive tape or a leg strap. If you are using adhesive tape, remove any sticky residue left behind by the previous tape you used. 4. Replace wet leg straps with dry ones. 5. Wear cotton underwear to absorb moisture and keep skin lifter bacon. 6. Keep the drainage bag below the level of the bladder, but keep it off the floor. 7. Check throughout the day to be sure the catheter is working and urine is draining freely. Make sure the tubing does not become kinked or looped. 8. Do not pull on the catheter or try to remove it. Pulling could damage internal tissues. TAKING CARE OF THE DRAINAGE BAGS Emptying the Drainage Bag You must empty your drainage bag when it is ? full. 1. Wash your hands with soap and water before and after handling your catheter. 2. Keep the drainage bag below your hips, below the level of your bladder. This stops urine from going back into the tubing and into your bladder. 3. Hold the dirty bag over the toilet or a clean container. 4. Open the pour spout at the bottom of the bag and empty the urine into the toilet or container. Do not let the pour spout touch the toilet, container, or any other surface. Doing so can place bacteria on the bag, which can cause an infection. 5. Clean the pour spout with a gauze pad or cotton ball that has rubbing alcohol on it. 6. Close the pour spout. 7. Attach the bag to your leg with adhesive tape or a leg strap. Changing the Drainage Bag 1. Wash your hands with soap and water before and after handling your catheter. 2. Pinch off the rubber catheter so that urine does not spill out. 3. Disconnect the catheter tube from the drainage tube at the connection valve. Do not let the tubes touch any surface. 4. Clean the end of the catheter tube with an alcohol wipe. Use a different alcohol wipe to clean the end of the drainage tube. 5. Connect the catheter tube to the drainage tube of the clean drainage bag. 6. Attach the new bag to the leg with adhesive tape or a leg strap. Avoid attaching the new bag too tightly. 7. Place a cap on the drainage bag not in use and store in a clean towel. SEEK MEDICAL CARE IF: Your urine is cloudy or smells. Your catheter starts to leak. Your catheter falls out or is pulled out. You have pain, swelling, redness, or pus where the catheter enters the body. You have pain in the abdomen, legs, lower back, or bladder. You have a fever of 100.4 F (38 C) or higher You see pink, red, dark, coffee colored, or pus-like urine. You have nausea, vomiting, or chills. You are not feeling better in 2 to 3 days or you are feeling worse. You are not draining urine into the bag or your bladder feels full. MAKE SURE YOU: Understand the reason you have the catheter. Understand and follow these instructions to care for the catheter. Will watch your condition. Drink 6-8 glasses of water or liquids per day to keep your urine clear. Avoid Caffeinated drinks. They can irritate the bladder and cause bladder spasms. Keep your follow up appointments and call with any concerns. Follow Up Care 05/06/2023 11:19:55 With:Katia SAMUELS Address: [facility] [address] [place] [address]- Business (1) When:06/24/2023 15:15:55 Comments:for zapien removal [facility] 06-10-2023 Note Custom Re[facility] Post-Procedure Instructions General Recommendations 1. Drink some extra fluids (water preferred) for the first few days following the procedure. Avoid alcohol and caffeine until your irritative symptoms have resolved. 2. Take the medication as prescribed by your doctor. Usually this will include an antibiotic, pain medication or antispasmodic if needed. 3. Avoid lifting heavy objects (>10 lbs) or excessive straining as this may cause bleeding in the first week after surgery. 4. Catheter instructions: ? You will go home with a Zapien catheter attached to a catheter bag. ? Follow your doctor?s instructions. 5. You may resume your normal diet. Common Treatment Related Symptoms The following are common treatment related signs and symptoms that you may experience after the procedure. They may also occur following removal of the catheter. After the procedure, your general urinary symptoms may temporarily worsen and then gradually improve. 1. Blood in the Urine. It is common to see some blood in the urine for 1 to 2 weeks. Limit any physical activities and drink some extra water to flush the bladder but you do not need to drink excessively or be alarmed. If you think the bleeding is excessive or you are having trouble urinating, call the number below. 2. Painful Urination. It is common to have some pain or burning with urination for 1 to 2 weeks. It should gradually improve. If it persists or starts to worsen, call the number below. 3. Slow Urinary Stream. After the procedure, swelling of the prostate occurs which may or may not make the urinary stream weaker. This should gradually improve. If you are having a lot of difficulty trying to urinate or cannot urinate, call your doctor. 4. Urinary Urgency, Frequency or Leakage. You may experience frequency and/or a strong urge to urinate while the prostate heals. Sometimes, you may find the urge is so strong that it is difficult to hold your urine and leakage can occur. 6. Blood in the Semen. This may occur up to several weeks following the procedure. The semen may have red or a ?brandy? color. This condition will almost always resolve without any treatment. You should not be alarmed. Frequently Asked Questions Your Treating Doctor may override these recommendations. You should follow his/her instructions. 1. When can I resume normal physical activities? You may resume your daily activities immediately. You should limit vigorous workouts such as bike riding, running, treadmills, and heavy weight lifting for the first week. If you experience any bleeding, limit your activities and increase your water intake. 2. When can I resume sexual activity? In general, once you do not see any blood in the urine you may resume sexual activity. You may experience blood in the semen as described in the ?Common Treatment Related Symptoms? section. 3. When can I resume my medications including blood thinners? In general, you should continue with any of your regular medications but check with your doctor. Typically, you can resume any blood thinners immediately post procedure but check with your doctor. 4. When can I go back to work? In general, you can return to work the following day. If you are taking pain medication (narcotics) or have a physical job (lifting, construction work, etc.), check with your doctor. 5. When can I have an alcoholic beverage? You should avoid any alcohol until your irritative symptoms have resolved, typically 1-2 weeks. Alcohol is a bladder irritant and can worsen your symptoms. You should also follow the instructions regarding alcohol intake on the labels of your prescription medication. Contact your Doctor Immediately If you experience: 1. Fever (oral temperature ? 101?F), chills ? may be signs of an infection. 2. Inability to urinate. 3. Foul smelling or cloudy urine. 4. While there may be some pain related to the procedure, it is usually not severe. If you are experiencing severe pain or any condition you think may be serious, call your doctor. 5. If unable to contact your physician and you feel it is an emergency, go to the nearest emergency room or call 911. Zapien Catheter Care, Male A Zapien catheter is a soft, flexible tube that is placed into the bladder to drain urine. The catheter has a balloon to hold it inside the bladder. A Zapien catheter may be inserted if: ? You leak urine or are not able to control when you urinate (urinary incontinence). ? You are not able to urinate when you need to (urinary retention). ? You had prostate surgery or surgery on the genitals. ? You have certain medical conditions, such as multiple sclerosis, dementia, or a spinal cord injury. To Prevent Infection: 1. Wash your hands with soap and water before and after handling your catheter. 2. Using mild soap and warm water on a clean washcloth; twice a day. ? Clean the area on your body closest to the catheter insertion site using a circul (more content not included)... [facility] 05-06-2023 Evaluation note Encounter Date Diagnosis Assessment Notes Apr, Primary hypertension (ICD-10 - I10) [facility] Other 11-21-2023 Evaluation note* Encounter Date Diagnosis Assessment Notes Treatment Notes Treatment Clinical Notes Mar, Acute kidney injury (ICD-10 - N17.9) Acute kidney injury was likely postrenal from obstructive nephropathy. BUN peaked at 129 and creatinine 8.5 g deciliter. Kidney function improved gradually with placing Zapien catheter. Serum creatinine is back to baseline. Patient did not need hemodialysis. 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 Baseline creatinine around 1.4 to 1.5 mg/dL. Pro/CAR 333 mg/dl likely from from zapien cath Blood pressures is elevated likely fro steroid Patient only metoprolol. No fluid overload. I also patient to stay away from NSAIDs and to keep himself well-hydrated. I will follow-up with the patient in 6 months Mar, Bilateral hydronephrosis (ICD-10 - N13.30) Patient was found to have bilateral hydroureteronephrosis along with bladder mass. Patient was discharged with Zapien catheter . Zapien catheter remains in place. Patient is status post TURP . Patient follows with Dr. Samuels Mar, Abdominal aortic aneurysm (AAA) without rupture, unspecified part (ICD-10 - I71.40) Patient was accidentally found to have large fusiform AAA during hospitalization. Status post stent placement in June 2022 Mar, Hyperlipidemia, unspecified hyperlipidemia type (ICD-10 - E78.5) Patient is on statin Mar, Iron deficiency (ICD-10 - E61.1) Iron saturation improved with iron supplement. I asked the patient to continue njbn-lxr-qwjnttb iron supplement once or twice daily Mar, Primary hypertension (ICD-10 - I10) BP is elevated. Will start Norvasc 5 mg PO daily. i asked the patient to monitor Bp closely with tapering steroid dose [facility] Other 10-17-2023 Hospital Discharge instructions Patient Education 03/11/2023 14:32:06 Transurethral Resection of the Prostate Transurethral Resection of the Prostate Transurethral resection of the prostate (TURP) is the removal, or resection, of part of the prostate tissue. This procedure is done to treat an enlarged prostate gland (benign prostatic hyperplasia). The goal of TURP is to remove enough prostate tissue to allow for a normal flow of urine. The procedure will allow you to empty your bladder more completely when you urinate so that you can urinate less often. In a transurethral resection, a thin telescope with a light, a camera, and an electric cutting edge(resectoscope) is passed through the urethra and into the prostate. The opening of the urethra is at the end of the penis. Tell a health care provider about: Any allergies you have. All medicines you are taking, including vitamins, herbs, eye drops, creams, and mcgk-ctq-dgyuzkd medicines. Any problems you or family members have had with anesthetic medicines. Any bleeding problems you have. Any surgeries you have had. Any medical conditions you have. Any prostate infections you have had. What are the risks? Generally, this is a safe procedure. However, problems may occur, including: Infection. Bleeding. Allergic reactions to medicines. Blood in the urine (hematuria). Damage to nearby structures or organs. Other problems may occur, but they are rare. They include: Dry ejaculation, or having no semen come out during orgasm. Erectile dysfunction, or being unable to have or keep an erection. Scarring that leads to narrowing of the urethra. This narrowing may block the flow of urine. Inability to control when you urinate (incontinence). Deep vein thrombosis. This is a blood clot that can develop in your leg. TURP syndrome. This can happen when you lose too much sodium during or after the procedure. Some signs and symptoms of this condition include: ?Weakness. ?Headaches. ?Nausea or vomiting. ?Muscle cramping. What happens before the procedure? When to stop eating and drinking Follow instructions from your health care provider about what you may eat and drink before your procedure. These may include: 8 hours before your procedure ?Stop eating most foods. Do not eat meat, fried foods, or fatty foods. ?Eat only light foods, such as toast or crackers. ?All liquids are okay except energy drinks and alcohol. 6 hours before your procedure ?Stop eating. ?Drink only clear liquids, such as water, clear fruit juice, black coffee, plain tea, and sports drinks. ?Do not drink energy drinks or alcohol. 2 hours before your procedure ?Stop drinking all liquids. ?You may be allowed to take medicines with small sips of water. If you do not follow your health care provider's instructions, your procedure may be delayed or canceled. Medicines Ask your health care provider about: Changing or stopping your regular medicines. This is especially important if you are taking diabetes medicines or blood thinners. Taking medicines such as aspirin and ibuprofen. These medicines can thin your blood. Do not take these medicines unless your health care provider tells you to take them. Taking twwb-kwe-kicgcrk medicines, vitamins, herbs, and supplements. Surgery safety Ask your health care provider what steps will be taken to help prevent infection. These steps may include: Removing hair at the surgery site. Washing skin with a germ-killing soap. Taking antibiotic medicine. General instructions Do not use any products that contain nicotine or tobacco for at least 4 weeks before the procedure.These products include cigarettes, chewing tobacco, and vaping devices, such as e-cigarettes. If you need help quitting, ask your health care provider. If you will be going home right after the procedure, plan to have a responsible adult: ?Take you home from the hospital or clinic. You will not be allowed to drive. ?Care for you for the time you are told. What happens during the procedure? An IV will be inserted into one of your veins. You will be given one or more of the following: ?A medicine to help you relax (sedative). ?A medicine to make you fall asleep (general anesthetic). ?A medicine that is injected into your spine to numb the area below and slightly above the injection site (spinal anesthetic). Your legs will be placed in foot rests (stirrups) so that your legs are apart and your knees are bent. The resectoscope will be passed through your urethra to your prostate. Parts of your prostate will be resected using the cutting edge of the resectoscope. Fluid will be passed to rinse out the cut tissues (irrigation). The resectoscope will be removed. A small, thin tube (catheter) will be passed through your urethra and into your bladder. The catheter will drain urine into a bag outside of your body. The procedure may vary among health care providers and hospitals. What happens after the procedure? Your blood pressure, heart rate, breathing rate, and blood oxygen level will be monitored until youleave the hospital or clinic. You will be given fluids through the IV. The IV will be removed when you start eating and drinking normally. You may have some pain. Pain medicine will be available to help you. You will have a catheter draining your urine. ?You may have blood in your urine. Your catheter may be kept in until your urine is clear. ?Your urinary drainage will be monitored. If necessary, your bladder may be rinsed out (irrigated) through your catheter. You will be encouraged to walk around as soon as possible. You may have to wear compression stockings. These stockings help to prevent blood clots and reduce swelling in your legs. If you were given a sedative during the procedure, it can affect you for several hours. Do not drive or operate machinery until your health care provider says that it is safe. Summary Transurethral resection of the prostate (TURP) is the removal (resection) of part of the prostate tissue. The goal of this procedure is to remove enough prostate tissue to allow for a normal flow of urine. Follow instructions from your health care provider about taking medicines and about eating and drinking before the procedure. This information is not intended to replace advice given to you by your health care provider. Make sure you discuss any questions you have with your health care provider. Document Revised: 02/05/2022 Document Reviewed: 02/05/2022 e27 Patient Education 2022 [employer]. 03/11/2023 14:15:06 Benign Prostatic Hyperplasia Benign Prostatic Hyperplasia Benign prostatic hyperplasia (BPH) is an enlarged prostate gland that is caused by the normal agingprocess. The prostate may get bigger as a man gets older. The condition is not caused by cancer. The prostate is a walnut-sized gland that is involved in the production of semen. It is located in front of the rectum and below the bladder. The bladder stores urine. The urethra carries stored urine ou t of the body. An enlarged prostate can press on the urethra. This can make it harder to pass urine. The buildup of urine in the bladder can cause infection. Back pressure and infection may progress to bladder damage and kidney (renal) failure. What are the causes? This condition is part of the normal aging process. However, not all men develop problems from thiscondition. If the prostate enlarges away from the urethra, urine flow will not be blocked. If it enlarges toward the urethra and compresses it, there will be problems passing urine. What increases the risk? This condition is more likely to develop in men older than 50 years. What are the signs or symptoms? Symptoms of this condition include: Getting up often during the night to urinate. Needing to urinate frequently during the day. Difficulty starting urine flow. Decrease in size and strength of your urine stream. Leaking (dribbling) after urinating. Inability to pass urine. This needs immediate treatment. Inability to completely empty your bladder. Pain when you pass urine. This is more common if there is also an infection. Urinary tract infection (UTI). How is this diagnosed? This condition is diagnosed based on your medical history, a physical exam, and your symptoms. Tests will also be done, such as: A post-void bladder scan. This measures any amount of urine that may remain in your bladder after you finish urinating. A digital rectal exam. In a rectal exam, your health care provider checks your prostate by putting a lubricated, gloved finger into your rectum to feel the back of your prostate gland. This exam detects the size of your gland and any abnormal lumps or growths. An exam of your urine (urinalysis). A prostate specific antigen (PSA) screening. This is a blood test used to screen for prostate cancer. An ultrasound. This test uses sound waves to electronically produce a picture of your prostate gland. Your health care provider may refer you to a specialist in kidney and prostate diseases (urologist). How is this treated? Once symptoms begin, your health care provider will monitor your condition (active surveillance or watchful waiting). Treatment for this condition will depend on the severity of your condition. Treatment may include: Observation and yearly exams. This may be the only treatment needed if your condition and symptoms are mild. Medicines to relieve your symptoms, including: ?Medicines to shrink the prostate. ?Medicines to relax the muscle of the prostate. Surgery in severe cases. Surgery may include: ?Prostatectomy. In this procedure, the prostate tissue is removed completely through an open incision or with a laparoscope or robotics. ?Transurethral resection of the prostate (TURP). In this procedure, a tool is inserted through the opening at the tip of the penis (urethra). It is used to cut away tissue of the inner core of the prostate. The pieces are removed through the same opening of the penis. This removes the blockage. ?Transurethral incision (TUIP). In this procedure, small cuts are made in the prostate. This lessens the prostate's pressure on the urethra. ?Transurethral microwave thermotherapy (TUMT). This procedure uses microwaves to create heat. The heat destroys and removes a small amount of prostate tissue. ?Transurethral needle ablation (TUNA). This procedure uses radio frequencies to destroy and remove a small amount of prostate tissue. ?Interstitial laser coagulation (ILC). This procedure uses a laser to destroy and remove a small amount of prostate tissue. ?Transurethral electrovaporization (TUVP). This procedure uses electrodes to destroy and remove a small amount of prostate tissue. ?Prostatic urethral lift. This procedure inserts an implant to push the lobes of the prostate away from the urethra. Follow these instructions at home: Take sztq-akp-eloxbvi and prescription medicines only as told by your health care provider. Monitor your symptoms for any changes. Contact your health care provider with any changes. Avoid drinking large amounts of liquid before going to bed or out in public. Avoid or reduce how much caffeine or alcohol you drink. Give yourself time when you urinate. Keep all follow-up visits. This is important. Contact a health care provider if: You have unexplained back pain. Your symptoms do not get better with treatment. You develop side effects from the medicine you are taking. Your urine becomes very dark or has a bad smell. Your lower abdomen becomes distended and you have trouble passing urine. Get help right away if: You have a fever or chills. You suddenly cannot urinate. You feel light-headed or very dizzy, or you faint. There are large amounts of blood or clots in your urine. Your urinary problems become hard to manage. You develop moderate to severe low back or flank pain. The flank is the side of your body between the ribs and the hip. These symptoms may be an emergency. Get help right away. Call 911. Do not wait to see if the symptoms will go away. Do not drive yourself to the hospital. Summary Benign prostatic hyperplasia (BPH) is an enlarged prostate that is caused by the normal aging process. It is not caused by cancer. An enlarged prostate can press on the urethra. This can make it hard to pass urine. This condition is more likely to develop in men older than 50 years. Get help right away if you suddenly cannot urinate. This information is not intended to replace advice given to you by your health care provider. Make sure you discuss any questions you have with your health care provider. Document Revised: 11/28/2021 Document Reviewed: 11/28/2021 e27 Patient Education 2022 [employer]. Follow Up Care 02/07/2023 16:01:50 With:ARLENE CASILLAS, Katia Hall, URL Address: [facility] [address], [place] [address]- When:Within 3 Month(s) Comments:Sched cysto/FISH/Cytol/BT check [facility] 10-17-2023 Evaluation + Plan note Diagnostic Tests Pending * [facility] Fish [facility] Urine Cyto ([facility]) 03/11/23 [facility]08-15-2023 Note [id number] 12-10-2022 Evaluation + Plan note Diagnostic Tests Pending * [facility] Fish and Urine Cyto ([facility]) 12/10/22 [facility]07-18-2023 Hospital Discharge instructions Patient Education 12/10/2022 08:17:13 Cancer Screening for Men Cancer Screening for Men A cancer screening is a test or exam that checks for cancer. Your health care provider will recommend specific cancer screenings based on your age, medical history (including risk factors), and family history of cancer. Work with your health care provider to create a cancer screening schedule that protects your health. Who should have screening? All men should be considered for screening of certain cancers, including colorectal cancer, prostate cancer, lung cancer, and skin cancer. Your health care provider may recommend screenings for othertypes of cancer if: You had cancer before. You have a family member with cancer. You have abnormal genes that could increase the risk of cancer. You have risk factors for certain cancers, such as current or past use of tobacco products, or being overweight. When you should be screened for cancer depends on: Your age. Your medical history and your family's medical history. Certain lifestyle factors, such as smoking or other use of tobacco products. Environmental exposure, such as to asbestos. How is screening done? Colorectal cancer All adults should have screenings starting at age 45 and continuing until age 75. Your health care provider may recommend screening before age 45. You will have tests every 1 10 years, depending on your results and the type of screening test. People at increased risk should start screening at an earlier age. Talk with your health care provider about which screening test is right for you and how often you should be screened. Colorectal cancer screening looks for cancer or for growths called polyps that often form before cancer starts. Tests to look for cancer or polyps include: Colonoscopy or flexible sigmoidoscopy. For these procedures, a flexible tube with a small camera isinserted into the rectum. CT colonography. This test uses X-rays and a contrast dye to check the colon for polyps. If a polypis found, you may need to have a colonoscopy so the polyp can be located and removed. Tests to look for cancer in the stool (feces) include: Guaiac-based fecal occult blood test (FOBT). This test can find blood in stool. It can be done at home with a kit. Fecal immunochemical test (FIT). This test can find blood in stool. For this test, you will need tocollect stool samples at home. Stool DNA test. This test looks for blood in stool and any changes in DNA that can lead to colon cancer. For this test, you will need to collect a stool sample at home and send it to a lab. Prostate cancer Prostate cancer screening for men with average risk may start at age 50. Men with risk factors may need to be screened earlier, at ages 40 45. Talk with your health care provider about whether screening is right for you and, if so, how often you should be screened. Prostate cancer screening is done with blood tests and a digital rectal exam. During this exam, a health care provider uses a gloved finger to check prostate size. You may need to be screened for prostate cancer if: You have risk factors for prostate cancer, such as being or having a close family member with prostate cancer. You have had gene changes or a genetic condition that was passed on to you from a parent (inherited). These gene changes or genetic conditions include BRCA1 or BRCA2 gene mutations or Mccormack syndrome. You have symptoms of prostate cancer, such as problems urinating or problems getting or keeping an erection (erectile dysfunction). When you have been screened for prostate cancer, future screening may be recommended based on the results of your blood tests. Lung cancer Lung cancer screening is done with a CT scan that looks for abnormal changes in the lungs. Discuss lung cancer screening with your health care provider if you are 50 80 years old and if any of the following apply to you: You currently smoke. You used to smoke heavily. You have a smoking history of 1 pack of cigarettes a day for 20 years or 2 packs a day for 10 years. You have quit smoking within the past 15 years. You may need to be screened every year if you smoke heavily or if you used to smoke. Skin cancer Skin cancer screening is done by checking the skin for unusual moles or spots and any changes in existing moles. Your health care provider should check your skin for signs of skin cancer at every physical exam. You should check your skin every month and tell your health care provider right away if anything looks unusual. Men with a frfvvc-jewx-haldiw risk for skin cancer may want to see a jaw skinner (telecom manager) for an annual body check. What are the benefits of screening? Cancer screening is done to look for cancer in the very early stages, before it spreads and becomesharder to treat and before you would start to notice symptoms. Finding cancer early improves the chances of successful treatment. It may save your life. Where to find more information [place] [employer]: www.cancer.org Centers for Disease Control and Prevention: www.cdc.gov National Cancer [place]: www.cancer.gov Contact a health care provider if: You have concerns about any signs or symptoms of cancer. These may include: Skin problems. You may have: ?Moles of an unusual shape or color. ?Changes in existing moles. ?A sore on your skin that does not heal. Tiredness (fatigue) that does not go away. Losing weight without trying. Blood in your urine or stool. Problems with urination. You may have: ?Changes in urination habits. ?Painful urination. Painful ejaculation. Problems with coughing or breathing. These may include: ?Coughing or trouble breathing that does not go away. ?Coughing up blood. Frequent pain or cramping in your abdomen. Summary Your health care provider will recommend specific cancer screenings based on your age, medical history, and family history of cancer. Work with your health care provider to create a cancer screening schedule that protects your health. Finding cancer early improves the chances of successful treatment. It may save your life. Contact a health care provider if you have concerns about any signs or symptoms of cancer. This information is not intended to replace advice given to you by your health care provider. Make sure you discuss any questions you have with your health care provider. Document Revised: 10/08/2021 Document Reviewed: 04/07/2020 Elsevier Patient Education 2022 [employer]. Follow Up Care 11/15/2022 14:27:10 With:ARLENE CASILLAS, Katia Hall, URL Address: [facility] [address] , [place] [address]- When: Unknown [facility] 04-26-2023 Hospital Discharge instructions Patient Education 09/18/2022 15:17:07 Bladder Cancer Bladder Cancer Bladder cancer is a condition where abnormal tissue (a tumor) grows in the bladder. The bladder is the organ that holds urine. Two tubes (ureters) carry urine from the kidneys to the bladder. The bladder wall is made of layers of tissue. Cancer that spreads through these layers of the bladder wall becomes more difficult to treat. What increases the risk? The following factors may make you more likely to develop this condition: Smoking. Working where there are risks (occupational exposures), such as working with rubber, leather, clothing fabric, dyes, chemicals, or paint. Being 55 years of age or older. Being male. Having long-term bladder inflammation. Having a history of cancer. This includes: ?A family history of bladder cancer. ?Having had bladder cancer before. ?Having had certain treatments for cancer before, such as: ?Medicines to kill cancer cells (chemotherapy). ?Strong X-ray beams or high-energy capsules to kill cancer cells and shrink tumors (radiation therapy). Having been exposed to arsenic. This is a poisonous substance. What are the signs or symptoms? Early symptoms of this condition include: Blood in your urine. Pain when urinating. Infections of your urinary system (urinary tract infections or UTIs) that happen often. Having to urinate sooner or more often than normal. Late symptoms of this condition include: Not being able to urinate. Pain on one side of your lower back. Loss of appetite. Weight loss. Tiredness (fatigue). Swelling in your feet. Bone pain. How is this diagnosed? This condition is diagnosed based on: Your medical history. A physical exam. Lab tests, such as urine tests. Imaging tests. Your symptoms. You may also have other tests or procedures, such as: A cystoscopy. This involves putting a narrow tube into your urethra. The urethra is the organ that carries urine from your bladder to the outside of your body. This procedure is done to view the lining of your bladder for tumors. A biopsy. This involves removing a tissue sample to look at under a microscope to check for cancer. Blood tests or imaging tests may be needed. These show how far into the bladder wall cancer has grown, and if cancer has spread to any other parts of your body. Tests may include: CT scan. MRI. Bone scan. X-ray. How is this treated? Your health care provider may recommend one or more types of treatment based on the stage of your cancer. The most common treatments are: Surgery to remove the cancer. Types of surgeries include: ?Removing a tumor on the inside wall of the bladder (transurethral resection). ?Removing the bladder (cystectomy). Radiation therapy. This is often combined with chemotherapy. Chemotherapy. Immunotherapy. This uses medicines to help your body's disease-fighting system (immune system) destroy cancer cells. Follow these instructions at home: Take igpg-nrt-xerqkkz and prescription medicines only as told by your health care provider. If you were prescribed an antibiotic medicine, take it as told by your health care provider. Do notstop using the antibiotic even if you start to feel better. Eat a healthy diet. Some treatments might affect your appetite. Do not use any products that contain nicotine or tobacco. These products include cigarettes, chewing tobacco, and vaping devices, such as e-cigarettes. If you need help quitting, ask your health careprovider. Consider joining a support group. This may help you learn to deal with the stress of having bladdercancer. Tell your cancer care team if you develop side effects. Your team may be able to recommend ways to get relief. Keep all follow-up visits. This is important. Where to find more information [place] [employer] (ACS): cancer.org National Cancer [place] (NCI): cancer.gov Contact a health care provider if: You have symptoms of a UTI. These include: ?Fever. ?Chills. ?Weakness. ?Muscle aches. ?Pain in your abdomen. ?Urge to urinate that is stronger and happens more often than normal. ?Burning in the bladder or urethra when you urinate. Get help right away if: There is blood in your urine. You cannot urinate. You have severe pain or other symptoms that do not go away. Summary Bladder cancer is a condition where tumors grow in the bladder. Diagnosis is based on your medical history, a physical exam, lab tests, imaging tests, and your symptoms. Your health care provider may recommend one or more types of treatment based on the stage of your cancer. Consider joining a support group. This may help you learn to deal with the stress of having bladdercancer. This information is not intended to replace advice given to you by your health care provider. Make sure you discuss any questions you have with your health care provider. Document Revised: 04/22/2022 Document Reviewed: 04/22/2022 e27 Patient Education 2022 [employer]. Follow Up Care 08/26/2022 14:12:46 With:ARLENE CASILLAS, Katia Hall, URL Address: [facility] [address], [place] [address]- When: Unknown [facility] 04-10-2023 NoteEXAM: XR CHEST 2 V HISTORY: Pre-surgery evaluation COMPARISON: None. TECHNIQUE: PA and lateral views of the chest. FINDINGS: The cardiomediastinal silhouette is normal. No focal consolidation is identified. There is no pneumothorax. No pleural effusion is noted. The osseous structures are intact. IMPRESSION: No acute cardiopulmonary process. Electronically authenticated by: CORKY FORD Date: 2022-09-02 14:17[facility]03-29-2023 Evaluation note* Encounter Date Diagnosis Assessment Notes Treatment Notes Treatment Clinical Notes Jul, Abdominal aortic aneurysm (AAA) without rupture, unspecified part (ICD-10 - I71.40) This patient is doing very well after EVAR just over a month ago. We reviewed today's CT findings which show good repair with no evidence of endoleak. We will continue to follow along on a routine basis and have him back again next year with 1 year CTA. If at that point in time the repair remains patent with no endoleak, we will continue to follow him annually with ultrasound. They know to call us in the meantime with any issues or concerns. We did discuss his upcoming appointment with Dr. Samuels, urology specialist and he is able to go ahead from a vascular standpoint and have his bladder tumor removal as scheduled. [facility] 03-08-2023 Evaluation + Plan note Diagnostic Tests Pending * [facility] ([facility]) 07/31/22 [facility] 03-08-2023 Hospital Discharge instructions Patient Education 07/31/2022 07:59:11 Transurethral Resection of Bladder Tumor Transurethral Resection of Bladder Tumor Transurethral resection of a bladder tumor is the removal (resection) of a cancerous growth (tumor)on the inside wall of the bladder. The bladder is the organ that holds urine. The tumor is removed through the tube that carries urine out of the body (urethra). In a transurethral resection, a thin telescope with a light, a tiny camera, and an electric cuttingedge (resectoscope) is passed through the urethra. In men, the opening of the urethra is at the endof the penis. In women, it is just above the opening of the vagina. Tell a health care provider about: Any allergies you have. All medicines you are taking, including vitamins, herbs, eye drops, creams, and xgwu-poz-fxungaq medicines. Any problems you or family members have had with anesthetic medicines. Any blood disorders you have. Any surgeries you have had. Any medical conditions you have. Any recent urinary tract infections you have had. Whether you are or may be . What are the risks? Generally, this is a safe procedure. However, problems may occur, including: Infection. Bleeding. Allergic reactions to medicines. Damage to nearby structures or organs, such as: ?The urethra. ?The tubes that drain urine from the kidneys into the bladder (ureters). Pain and burning during urination. Difficulty urinating due to partial blockage of the urethra. Inability to urinate (urinary retention). What happens before the procedure? Staying hydrated Follow instructions from your health care provider about hydration, which may include: Up to 2 hours before the procedure you may continue to drink clear liquids, such as water, clear fruit juice, black coffee, and plain tea. Eating and drinking restrictions Follow instructions from your health care provider about eating and drinking, which may include: 8 hours before the procedure stop eating heavy meals or foods, such as meat, fried foods, or fatty foods. 6 hours before the procedure stop eating light meals or foods, such as toast or cereal. 6 hours before the procedure stop drinking milk or drinks that contain milk. 2 hours before the procedure stop drinking clear liquids. Medicines Ask your health care provider about: Changing or stopping your regular medicines. This is especially important if you are taking diabetes medicines or blood thinners. Taking medicines such as aspirin and ibuprofen. These medicines can thin your blood. Do not take these medicines unless your health care provider tells you to take them. Taking dezj-afb-gzrzcqh medicines, vitamins, herbs, and supplements. Tests You may have exams or tests, including: Physical exam. Blood tests. Urine tests. Electrocardiogram (ECG). This test measures the electrical activity of the heart. General instructions Plan to have someone take you home from the hospital or clinic. Ask your health care provider how your surgical site will be marked or identified. Ask your health care provider what steps will be taken to help prevent infection. These may include: ? Washing skin with a germ-killing soap. ? Taking antibiotic medicine. What happens during the procedure? An IV will be inserted into one of your veins. You will be given one or more of the following: ?A medicine to help you relax (sedative). ?A medicine to make you fall asleep (general anesthetic). ?A medicine that is injected into your spine to numb the area below and slightly above the injection site (spinal anesthetic). Your legs will be placed in foot rests (stirrups) so that your legs are apart and your knees are bent. The resectoscope will be passed through your urethra and into your bladder. The part of your bladder that is affected by the tumor will be resected using the cutting edge of the resectoscope. The resectoscope will be removed. A thin, flexible tube (catheter) will be passed through your urethra and into your bladder. The catheter will drain urine into a bag outside of your body. ?Fluid may be passed through the catheter to keep the catheter open. The procedure may vary among health care providers and hospitals. What happens after the procedure? Your blood pressure, heart rate, breathing rate, and blood oxygen level will be monitored until youleave the hospital or clinic. You may continue to receive fluids and medicines through an IV. You will have some pain. You will be given pain medicine to relieve pain. You will have a catheter to drain your urine. ?You will have blood in your urine. Your catheter may be kept in until your urine is clear. ?The amount of urine will be monitored. If necessary, your bladder may be rinsed out (irrigated) bypassing fluid through your catheter. You will be encouraged to walk around as soon as possible. You may have to wear compression stockings. These stockings help to prevent blood clots and reduce swelling in your legs. Do not drive for 24 hours if you were given a sedative during your procedure. Summary Transurethral resection of a bladder tumor is the removal (resection) of a cancerous growth (tumor)on the inside wall of the bladder. To do this procedure, your health care provider uses a thin telescope with a light, a tiny camera, and an electric cutting edge (resectoscope). Follow your health care provider's instructions. You may need to stop or change certain medicines, and you may be told to stop eating and drinking several hours before the procedure. Your blood pressure, heart rate, breathing rate, and blood oxygen level will be monitored until youleave the hospital or clinic. You may have to wear compression stockings. These stockings help to prevent blood clots and reduce swelling in your legs. This information is not intended to replace advice given to you by your health care provider. Make sure you discuss any questions you have with your health care provider. Document Released: 03/08/2010 Document Revised: 12/11/2018 Document Reviewed: 12/11/2018 e27 Patient Education 2020 [employer]. Follow Up Care 07/25/2022 10:56:51 With:ARLENE CASILLAS, Katia Hall, URL Address: [facility] [address] , [place] [address]- When: Unknown [facility] 03-02-2023 Evaluation note* Encounter Date Diagnosis Assessment Notes Treatment Notes Treatment Clinical Notes Jul, Infrarenal abdominal aortic aneurysm (AAA) without rupture (ICD-10 - I71.43) Patient's been doing well after endovascular aneurysm repair we will order a CT angiogram of the abdomen pelvis for postoperative surveillance. This is required per the SVS guidelines. We will see him back in a month. He was trying to get an MRI due to some bladder issues. I did call the [employer]. The device is compatible up to 3 Maggi for MRI. I explained this to the family and the patient. Jul, Other specified postprocedural states (ICD-10 - Z98.890) Jul, Personal history of other diseases of the circulatory system (ICD-10 - Z86.79) [facility] Evaluation note* Encounter Date Diagnosis Assessment Notes Treatment Notes Treatment Clinical Notes May, Infrarenal abdominal aortic aneurysm (AAA) without rupture (ICD-10 - I71.43) This patient has a 7 cm infrarenal unstable abdominal aortic aneurysm. I recommend repair. He has had increasing growth lately. This patient is at risk for rupture. I suggested repairing this within the next week or 2. The patient understands agrees the plan all questions were addressed. I did give him a AAA handout booklet today. We reviewed each page individually. We discussed risks and benefits as well as medical surgical tenderness. We also discussed potential complications and their management. The patient understands wishes to proceed all his questions were addressed. I spent at least 25 minutes in the room with this patient and family today. We will plan to do this percutaneously under [facility]. [facility] Other 01-17-2023 Hospital Discharge instructions Patient Education 06/11/2022 12:58:08 Cystoscopy Cystoscopy Cystoscopy is a procedure that is used to help diagnose and sometimes treat conditions that affect the lower urinary tract. The lower urinary tract includes the bladder and the urethra. The urethra is the tube that drains urine from the bladder. Cystoscopy is done using a thin, tube-shaped instrument with a light and camera at the end (cystoscope). The cystoscope may be hard or flexible, depending on the goal of the procedure. The cystoscope is inserted through the urethra, into the bladder. Cystoscopy may be recommended if you have: Urinary tract infections that keep coming back. Blood in the urine (hematuria). An inability to control when you urinate (urinary incontinence) or an overactive bladder. Unusual cells found in a urine sample. A blockage in the urethra, such as a urinary stone. Painful urination. An abnormality in the bladder found during an intravenous pyelogram (IVP) or CT scan. Cystoscopy may also be done to remove a sample of tissue to be examined under a microscope (biopsy). Tell a health care provider about: Any allergies you have. All medicines you are taking, including vitamins, herbs, eye drops, creams, and bxxw-xcs-ewmgsnb medicines. Any problems you or family members have had with anesthetic medicines. Any blood disorders you have. Any surgeries you have had. Any medical conditions you have. Whether you are or may be . What are the risks? Generally, this is a safe procedure. However, problems may occur, including: Infection. Bleeding. Allergic reactions to medicines. Damage to other structures or organs. What happens before the procedure? Ask your health care provider about: ?Changing or stopping your regular medicines. This is especially important if you are taking diabetes medicines or blood thinners. ?Taking medicines such as aspirin and ibuprofen. These medicines can thin your blood. Do not take these medicines unless your health care provider tells you to take them. ?Taking miab-yur-zwyzqng medicines, vitamins, herbs, and supplements. Follow instructions from your health care provider about eating or drinking restrictions. Ask your health care provider what steps will be taken to help prevent infection. These may include: ?Washing skin with a germ-killing soap. ?Taking antibiotic medicine. You may have an exam or testing, such as: ? X-rays of the bladder, urethra, or kidneys. ?Urine tests to check for signs of infection. Plan to have someone take you home from the hospital or clinic. What happens during the procedure? You will be given one or more of the following: ?A medicine to help you relax (sedative). ?A medicine to numb the area (local anesthetic). The area around the opening of your urethra will be cleaned. The cystoscope will be passed through your urethra into your bladder. Germ-free (sterile) fluid will flow through the cystoscope to fill your bladder. The fluid will stretch your bladder so that your health care provider can clearly examine your bladder blackwell. Your doctor will look at the urethra and bladder. Your doctor may take a biopsy or remove stones. The cystoscope will be removed, and your bladder will be emptied. The procedure may vary among health care providers and hospitals. What can I expect after the procedure? After the procedure, it is common to have: Some soreness or pain in your abdomen and urethra. Urinary symptoms. These include: ?Mild pain or burning when you urinate. Pain should stop within a few minutes after you urinate. This may last for up to 1 week. ?A small amount of blood in your urine for several days. ?Feeling like you need to urinate but producing only a small amount of urine. Follow these instructions at home: Medicines Take dspd-pln-wppqbsx and prescription medicines only as told by your health care provider. If you were prescribed an antibiotic medicine, take it as told by your health care provider. Do notstop taking the antibiotic even if you start to feel better. General instructions Return to your normal activities as told by your health care provider. Ask your health care provider what activities are safe for you. Do not drive for 24 hours if you were given a sedative during your procedure. Watch for any blood in your urine. If the amount of blood in your urine increases, call your healthcare provider. Follow instructions from your health care provider about eating or drinking restrictions. If a tissue sample was removed for testing (biopsy) during your procedure, it is up to you to get your test results. Ask your health care provider, or the department that is doing the test, when yourresults will be ready. Drink enough fluid to keep your urine pale yellow. Keep all follow-up visits as told by your health care provider. This is important. Contact a health care provider if you: Have pain that gets worse or does not get better with medicine, especially pain when you urinate. Have trouble urinating. Have more blood in your urine. Get help right away if you: Have blood clots in your urine. Have abdominal pain. Have a fever or chills. Are unable to urinate. Summary Cystoscopy is a procedure that is used to help diagnose and sometimes treat conditions that affect the lower urinary tract. Cystoscopy is done using a thin, tube-shaped instrument with a light and camera at the end. After the procedure, it is common to have some soreness or pain in your abdomen and urethra. Watch for any blood in your urine. If the amount of blood in your urine increases, call your healthcare provider. If you were prescribed an antibiotic medicine, take it as told by your health care provider. Do notstop taking the antibiotic even if you start to feel better. This information is not intended to replace advice given to you by your health care provider. Make sure you discuss any questions you have with your health care provider. Document Released: 05/09/2001 Document Revised: 05/04/2019 Document Reviewed: 05/04/2019 e27 Patient Education 2020 [employer] Follow Up Care 05/22/2022 13:37:28 With:[facility] [place] Address: [address] 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 He is at risk for rupture. This could be catastrophic consequences. He is far above the normal size for repair. We normally repair these around 5.5. I recommend we work this patient up and try and repair this with us in the next 3 to 4 weeks. I do not believe he is currently symptomatic. He is nontender on exam over his abdomen. He has no back or flank pain. I do recommend a contrast study to further work-up this patient for EVAR. Looks like he might be a good candidate for the Medtronic stent graft. We will hydrate him over the liter of fluid and then get a [place] CTA of his abdomen pelvis. The risks and benefits were explained as well as medical surgical tenderness we also discussed potential complications the risk and management he understands wishes to proceed all his questions were addressed. [facility] Other 01-10-2023 Evaluation note* Encounter Date Diagnosis Assessment Notes Treatment Notes Treatment Clinical Notes May, Acute kidney injury (ICD-10 - N17.9) Acute kidney injury was likely postrenal from obstructive nephropathy. BUN peaked at 129 and creatinine 8.5 g deciliter. Kidney function improved gradually with placing Zapien catheter. Serum creatinine is back to baseline. Patient did not need hemodialysis. 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 Baseline creatinine around 1.6 to 1.7 mg/dL. Last creatinine at discharge was 1.78 mg/dL and GFR 37 mm/min. Follow-up with the patient in 4 months with repeated UA along with protein creatinine ratio. I will check PTH along with calcium and phosphorus. Blood pressures well controlled. Patient only metoprolol. I also patient to stay away from NSAIDs and to keep himself well-hydrated. May, Bilateral hydronephrosis (ICD-10 - N13.30) Patient was found to have bilateral hydroureteronephrosis along with bladder mass. Patient was discharged with Zapien catheter in place to follow-up with urology clinic as outpatient for further work-up of bladder mass and hydronephrosis May, Abdominal aortic aneurysm (AAA) without rupture, unspecified part (ICD-10 - I71.40) Patient was accidentally found to have large fusiform AAA. Patient follows with vascular surgery as outpatient this week May, Hyperlipidemia, unspecified hyperlipidemia type (ICD-10 - E78.5) Patient is on statin [employer] Other Evaluation + Plan note No data available for this section [facility] evaluation + Plan note Future Appointments Appointment Date:10/04/2022 10:00:00 AM Scheduled Provider: Location:Critical access hospital Appointment Type:URO Nurse Visit [facility] Evaluation + Plan note Future Appointments Appointment Date:06/16/2023 10:00:00 AM Scheduled Provider: Location:[facility] Appointment Type:URO Nurse Visit Appointment Date:06/30/2023 01:30:00 PM Scheduled Provider:Katia SAMUELS MD [facility] Appoint[facility] Type:URO Office Visit Diagnostic Tests Pending * [facility] Fish [facility] Urine Cyto [facility]ments Appointment Date:06/30/2023 01:30:00 PM Scheduled Provider:Katia SAMUELS MD Location:[facility] Appointment Type:URO Office Visit [facility] evaluation + Plan note Future Appointments Appointment Date:07/01/2023 08:30:00 AM Scheduled Provider: Location:[facility] Dominic Appointment Type:URO Nurse Visit [facility] evaluation note* Diagnosis Onset Date Resolution Status AAA (abdominal aortic aneurysm) acute Acute kidney injury acute Acute metabolic encephalopathy acute Bilateral hydronephrosis acu te Bladder mass acute Diarrhea acute Folic acid deficiency acute Hyperkalemia acute Metabolic acidosis acute Pre-operative cardiovascular examination, bradyarrhythmia acute 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 acute Sundowning acute TIA (transient ischemic attack) acute Tobacco abuse acute UTI (urinary tract infection) acute Vitamin B 12 deficiency acut e [facility] Work Phone: Evaluation noteNo assessment information available [facility] Work Phone: Evaluation noteNo InformationNortHelen M. Simpson [facility] [employer] Other Hiswtnp general Narrative - Reported* Type Description Date Medical History ACUTE KIDNEY INJURY Medical History OBSTRUCTIVE UROPATHY Medical History PRE-OPERATIVE CARDIO VASCULAR EXAMINATION, BRADYARRHYTHMIA Medical History BILATERAL HYDRONEPHROSIS Medical History BLADDER MASS Medical History AAA (ABDOMINAL AORTIC ANEURYSM) Medical History TOBACCO ABUSE Medical History DEMENTIA Medical History SUNDOWNING Medical History VITAMIN B 12 DEFICIENCY Medical History FOLIC ACID DEFICIENCY Surgical History KIDNEY STONE REMOVED Hospitalization History ACUTE KIDNEY INJ URY, 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, 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 [employer] Other history general Narrative - Reported* Type Description Date Medical History ACUTE KIDNEY INJURY Medical History OBSTRUCTIVE UROPATHY Medical History PRE-OPERATIVE CARDIO VASCULAR EXAMINATION, BRADYARRHYTHMIA Medical History BILATERAL HYDRONEPHROSIS Medical History BLADDER MASS Medical History AAA (ABDOMINAL AORTIC ANEURYSM) Medical History TOBACCO ABUSE Medical History DEMENTIA Medical History SUNDOWNING Medical History VITAMIN B 12 DEFICIENCY Medical History FOLIC ACID DEFICIENCY Surgical History KIDNEY STONE REMOVED Surgical History [facility] Hospitalization History ACUTE KIDNEY INJ URY, 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, 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 [facility] Other history general Narrative - Reported* Type Description Date Medical History ACUTE KIDNEY INJURY Medical History OBSTRUCTIVE UROPATHY Medical History PRE-OPERATIVE CARDIO VASCULAR EXAMINATION, BRADYARRHYTHMIA Medical History BILATERAL HYDRONEPHROSIS Medical History BLADDER MASS Medical History AAA (ABDOMINAL AORTIC ANEURYSM) Medical History TOBACCO ABUSE Medical History DEMENTIA Medical History SUNDOWNING Medical History VITAMIN B 12 DEFICIENCY Medical History FOLIC ACID DEFICIENCY Surgical History KIDNEY STONE REMOVED Surgical History [facility] Surgical History TURBT, CYSTOSCOPY 09/12/2022 Surgical History CYSTOSCOPY 07/30/2022 Surgical History STENT OVER AORTIC ANEURYSM 07/15 22 Hospitalization History ACUTE KIDNEY INJ URY, 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, 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 Hospitalization History SEE ABOVE [facility] Other Hospital Discharge instructions No data available for this section [facility] Domin[facility] Progress note No data available for this section [facility] Eva Summary Purpose Family History No Family History Records FoundUnknown Family Member Name Dates Details Family history of benign doc plasm of brain: Father(V19.8, Z84.89) Status:Active Family history of bowel obst ruction: Mother(V18.59, Z83.79) Status:Active Relationship Condition Age at Onset Recorded Date/T deandra father Neoplasm of brain Unknown Relationship Condition Age at Onset Recorded Date/T deandra father Neoplasm of brain Unknown Not Specified Rheumatic fever Unknown brother Malignant neoplasm of urinary bladder Unk nown Unknown Family Member Name Dates Details Family history of benign doc plasm of brain: Father(V19.8, Z84.89) Status:Active Family history of bowel obst ruction: Mother(V18.59, Z83.79) Status:Active Advance Directives No Advanced Directives Records Found Advance Directive Response Recorded Date/ Time Advance Directives No April 10:36am Advance Directive Response Recorded Date/ Time Advance Directives No April 11:36am Chief Complaint and Reason for Visit Chief Complaint talon I71.4 Reason for Visit AAA (abdominal aorti c aneurysm) Acute kidney injury Acute metabolic encephalopathy Bilateral hydronephrosis Bladder mass Diarrhea Folic acid deficiency Hyperkalemia Metabolic acidosis Pre-operative cardiovascular examination, bradyarrhythmia 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 Sundowning TIA (transient ischemic attack) Tobacco abuse UTI (urinary tract infection) Vitamin B 12 deficiency Chief Complaint talon I71.4 AAA AAA Reason for Visit AAA (abdominal aorti c aneurysm) Acute kidney injury Acute metabolic encephalopathy Bilateral hydronephrosis Bladder mass Diarrhea Folic acid deficiency Hyperkalemia Metabolic acidosis Pre-operative cardiovascular examination, bradyarrhythmia 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 Sundowning TIA (transient ischemic attack) Tobacco abuse UTI (urinary tract infection) Vitamin B 12 deficiency Chief Complaint talon I71.4 AAA AAA n32.89 n28.9 n13.4 n17.9 Reason for Visit AAA (abdominal aorti c aneurysm) Acute kidney injury Acute metabolic encephalopathy Bilateral hydronephrosis Bladder mass Diarrhea Folic acid deficiency Hyperkalemia Metabolic acidosis Pre-operative cardiovascular examination, bradyarrhythmia 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 Sundowning TIA (transient ischemic attack) Tobacco abuse UTI (urinary tract infection) Vitamin B 12 deficiency Chief Complaint talon I71.4 AAA AAA n32.89 n28.9 n13.4 n17.9 I71.4 Reason for Visit AAA (abdominal aorti c aneurysm) Acute kidney injury Acute metabolic encephalopathy Bilateral hydronephrosis Bladder mass Diarrhea Folic acid deficiency Hyperkalemia Metabolic acidosis Pre-operative cardiovascular examination, bradyarrhythmia 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 Sundowning TIA (transient ischemic attack) Tobacco abuse UTI (urinary tract infection) Vitamin B 12 deficiency Chief Complaint e78.5 n17.9 n18.32 n 13.30 i71.40 e78.5 Chief Complaint * ALEX ANDERSON is being seen for a 6 month follow-up of. * Patient is in the office with his for follow-up for the problems noted below. Since he was last seen in the office he underwent AAA repair by Dr. Valentine without any problems. After quitting smoking for 3 months he went back to smoking. He reports no symptoms of dyspnea palpitations or chest pain. His was with him was the main source of information since the patient is hard of hearing. Reviewing the record from last year he had an echocardiogram which was unremarkable and nuclear stress test which for the most part was unremarkable as well. He is on metoprolol and simvastatin follows with his PCP regularly. Examination was only remarkable for overweight. * Assessment/recommendations: * 1 status post AAA stenting with [facility]AR 2022 with no complications. * 2 chronic kidney disease stage III. Patient's follows with nephrology * 3 hypertension, currently under control he is only on metoprolol. * 4 hyperlipidemia on simvastatin, lipid profile is ordered * 5 history of TIA on statin patient was advised to go back and take baby aspirin. * 6 lifelong history of tobacco abuse, even though the patient quit smoking for 3 months he went backto smoking. Education was provided to quit smoking for good. * 7 slight overweight, encouragement provided for prudent diet and daily activities * 8 history of bladder cancer followed by urology in remission Additional Source Comments (unrecognized sect ion and content) No Status Records FoundNo Status Records FoundNo Status Records FoundNo Status Records FoundNo Status Records FoundNo Status Records FoundNo Status Records Found INFORMATION SOURCE (unrecogn ized section and content) DATE CREATED AUTHOR 05/12/2021 [facility] d[facility] Specialist DATE CREATED AUTHOR AUTHOR'S ORGANIZ ATION 09/23/2022 [facility] DATE CREATED AUTHOR AUTHOR'S ORGANIZ ATION 01/23/2023 [facility] DATE CREATED AUTHOR AUTHOR'S ORGANIZ ATION 01/23/2023 [employer] DATE CREATED AUTHOR AUTHOR'S ORGANIZ ATION 05/29/2023 [facility] d[facility] Specialists EPIC DATE CREATED AUTHOR AUTHOR'S ORGANIZ ATION 07/05/2023 [facility] DATE CREATED AUTHOR AUTHOR'S ORGANIZ ATION 07/13/2023 [facility] Patient Care team informatio n (unrecognized section and content) Team Status: Inactive Member Role Status Dates Stanley Emerson MD Primary Care Provider Active Margarito Valentine MD Attending Provider Active Team Status: Inactive Member Role Status Dates Stanley Emerson MD Primary Care Provider Active Taz Barnes MD Admit Provider Active Margarito Valentine MD Other Provider Active Janice Gonzalez MD Other Provider Active Bernabe Cr DO Attending Provider Active Team Status: Active Member Role Status Dates Stanley Emerson MD Primary Care Provider Active Team Status: Inactive Member Role Status Dates Stanley Emerson MD Primary Care Provider Active Margarito Valentine MD Admit Provider, Attending Pr ovider Active Team Status: Inactive Member Role Status Dates Stanley Emerson MD Primary Care Provider Active Heather Schwab PA-C Attending Provider Active Team Status: Inactive Member Role Status Dates Stanley Emerson MD Primary Care Provider Active Celia Ramos MD Attending Provider Active Teo Stokes MD Referring Provider Active REASON FOR VISIT (unrecogniz ed section and content) RENAL HOSP F/UDiscuss AAA re pairTo go over CTA results3 week f/u EVAR4 WK FOLLOW UP; CTA [facility] 08/16/22RENAL 6 month Follow upBPREFILL Goals (unrecognized section and content) Goals may be documented in a n alternate section FOR RECORDS PERTAINING TO PATIENTS WHO ARE OR HAVE BEEN ENROLLED IN A CHEMICAL DEPENDENCY/SUBSTANCEABUSE PROGRAM, SOME INFORMATION MAY BE OMITTED. This clinical summary was aggregated from multiple sources. Caution should be exercised in using it in the provision of clinical care. This summary normalizes information from multiple sources, and as a consequence, information in this document may materially change the coding, format and clinical context of patient data. In addition, data may be omitted in some cases. CLINICAL DECISIONS SHOULD BE BASED ON THE PRIMARY CLINICAL RECORDS. [facility] [employer] [facility]. provides no warranty or guarantee of the accuracy or completeness of information in this document.
--- NOTE | 2023-07-26 12:32 | ED_ITS ---
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 Patient has a history of benign prostate hypertrophy. Patient has had indwelling Villarreal catheter for months. Patient typically has his catheter changed every month. Patient's Villarreal catheter was changed yesterday by home health care staff. Patient was not having much drainage from his Villarreal catheter yesterday, they came back today to change the catheter again today. Patient has a 16 Indian normal Villarreal catheter in that is not draining. Patient starting to have some discomfort and pressure to the suprapubic area. He has small amount of blood noted to his Villarreal bag as well. Patient has no fever, chill, no abdominal pain, nausea, vomiting, or any other acute complaints at this time. No other trauma with the Villarreal catheter. All systems are negative except as noted/marked. All systems reviewed and otherwise negative. Nurses note and vital signs reviewed and patient is not hypoxic. General: The patient appears well and in no apparent distress. Patient is resting comfortably on cart. Patient is not toxic, lethargic, or listless Skin: Warm, dry, no pallor noted. There is no rash noted. No petechiae, purpura. Head: Normocephalic, atraumatic Eye: Normal conjunctiva, no drainage, EOMI. PERRL Ears, Nose, Mouth, and Throat: oral mucosa is moist. Nares patent. Mouth without vesicles. Cardiovascular: Regular Rate and Rhythm, no murmur, gallop, rub Respiratory: Patient is in no distress, Back: non-tender, no CVA tenderness bilaterally to percussion. No CT LS midline pain GI: Mild to moderate suprapubic tenderness to palpation and fullness, no other tenderness to palpation, no masses appreciated. No rebound, guarding, or rigidity noted. No distention Musculoskeletal: Patient has full range of motion of all of the extremities, no motor, sensory, or focal neurological deficits Neurological: A&O x4, normal speech Psychiatric: Cooperative Related Data Home Medications Medication Instructions Recorded Confirmed acetaminophen 500 mg capsule 500 mg PO Q6H PRN fever or pain 04/13/23 04/13/23 albuterol sulfate 90 mcg/actuation 1 inh inhalation Q6H PRN 04/13/23 04/13/23 aerosol inhaler bronchospasm aspirin 81 mg tablet,delayed 81 mg PO DAILY 04/13/23 04/13/23 release (Ecotrin Low Strength) folic acid 1 mg tablet 1 mg PO DAILY 04/13/23 04/13/23 metoprolol tartrate 50 mg tablet 50 mg PO Q12H 04/13/23 04/13/23 multivitamin (Daily Multi-Vitamin 1 tab PO DAILY 04/13/23 04/13/23 tablet) simvastatin 20 mg tablet 20 mg PO DAILY 04/13/23 04/13/23 Previous Rx's Medication Instructions Recorded prednisone 10 mg tablet See Rx Instructions .Route 04/13/23 .COMPLEX #30 tabs ciprofloxacin HCl 500 mg tablet 500 mg PO Q12H 10 days #20 tabs 07/26/23 Allergies Allergy/AdvReac Type Severity Reaction Status Date / Time No Known Drug Allergies Allergy Verified 07/26/23 11:55 PFSH PFSH Social History Smoking status: Never smoker Exam Constitutional Vital Signs, click to edit/add: Last Vital Signs Temp 97.7 F 07/26/23 11:51 Pulse 82 07/26/23 11:51 Resp 16 07/26/23 11:51 BP 120/91 07/26/23 11:51 Pulse Ox 99 07/26/23 11:51 O2 Del Method Room Air 07/26/23 11:51 Course Vital Signs Vital signs: Vital Signs Temperature 97.7 F 07/26/23 11:51 Pulse Rate 82 07/26/23 11:51 Respiratory Rate 16 07/26/23 11:51 Blood Pressure 120/91 07/26/23 11:51 Pulse Oximetry 99 07/26/23 11:51 Oxygen Delivery Method Room Air 07/26/23 11:51 Temperature 97.7 F 07/26/23 11:51 Pulse Rate 82 07/26/23 11:51 Respiratory Rate 16 07/26/23 11:51 Blood Pressure 120/91 07/26/23 11:51 Pulse Oximetry 99 07/26/23 11:51 Oxygen Delivery Method Room Air 07/26/23 11:51 Medical Decision Making MDM Narrative Medical decision making narrative: See Sari CHAN nursing notes. Patient had his Villarreal catheter removed, a 16 Indian coud? catheter was placed with no significant difficulties. Urine sample was obtained. Urine culture is pending, patient will be placed on Cipro. There was a delay in obtaining urine results, patient will be started on Cipro at discharge and we will call patient with his urine results and most likely tell him to continue taking Cipro. Patient will follow-up with his urologist. Patient will continue taking fluids Education that bedside was done with patient and his on how to irrigate his Villarreal catheter at home so that if there is another blockage or the Villarreal catheter is not draining, patient able to troubleshoot his Villarreal catheter home. and patient very happy with care and nursing efforts. Discharge Plan Discharge Chief Complaint: Urogenital-Male Clinical Impression: Urinary tract infection, Complication of Villarreal catheter Patient Disposition: Home, Self-Care Time of Disposition Decision: 14:12 Condition: Fair Prescriptions / Home Meds: New ciprofloxacin HCl 500 mg tablet 500 mg PO Q12H 10 Days Qty: 20 0RF No Action albuterol sulfate 90 mcg/actuation HFA aerosol inhaler 1 inh INHALATION Q6H PRN (Reason: bronchospasm) folic acid 1 mg tablet 1 mg PO DAILY metoprolol tartrate 50 mg tablet 50 mg PO Q12H simvastatin 20 mg tablet 20 mg PO DAILY aspirin [Ecotrin Low Strength] 81 mg tablet,delayed release (DR/EC) 81 mg PO DAILY multivitamin [Daily Multi-Vitamin] Tablet 1 tab PO DAILY acetaminophen 500 mg capsule 500 mg PO Q6H PRN (Reason: fever or pain) prednisone 10 mg tablet See Rx Instructions .ROUTE .COMPLEX Qty: 30 0RF Rx Instructions: 4 by mouth daily for three days then 3 by mouth daily for three days then 2 by mouth daily for three days then 1 by mouth daily for three days Instructions: Urinary Tract Infection in Men (ED), Villarreal Catheter Placement and Care (ED), Catheter-associated Urinary Tract Infection (ED) Additional Instructions: Increase fluids, and finish antibiotics. We will call you with the official results of your urine. Urine culture is pending. Irrigate Villarreal water at home with tap water if needed. Home health care can help irrigate Villarreal catheter if needed. Follow-up with your urologist as needed Referrals: NICHOLAS EMERSON [Primary Care Provider] - 1 week Stand Alone Forms: Portal Instructions
[2023-07-26] MEDS: LIDOCAINE 2% JELLY 10 ML UR (12:38)
[2023-07-26 14:21] LABS: Bilirubin Urine NEGATIVE (NEGATIVE); Blood Urine LARGE (NEGATIVE); Clarity Urine CLEAR (CLEAR); Color Urine LT. YELLOW (YELLOW); Glucose Urine UA NEGATIVE (NEGATIVE); Ketones Urine NEGATIVE (NEGATIVE); Leukocyte Esterase Urine MODERATE (NEGATIVE); Nitrite Urine NEGATIVE (NEGATIVE); Protein Urine 30 mg/dL (NEG/TRACE); Urobilinogen Urine 0.2 EU/dL (0.2-1.0); pH Urine 5.5 (5.0-9.0)
[2023-07-26 14:51] LABS: Bacteria Urine MODERATE #/HPF (NONE SEEN); Cast Seen? NONE SEEN #/LPF (NONE SEEN); Crystals Seen? None Seen #/HPF (None Seen); Mucus Urine NONE SEEN (NONE SEEN); RBC Urine 20-50 #/HPF (0-2); Squamous Epithelial Cell Urine RARE #/LPF (NONE/RARE)
== END 2023-07-26 14:18 | disposition home or self-care (01) ==
PROVIDERS: Emergency Provider Emergency Medicine; PCP Family Medicine
DX: N39.0 Urinary tract infection, site not specified (principal); T83.9XXA Unspecified complication of genitourinary prosthetic device, implant and graft, initial encounter; N40.0 Benign prostatic hyperplasia without lower urinary tract symptoms; Z79.82 Long term (current) use of aspirin; Z79.899 Other long term (current) drug therapy
CPT/HCPCS: 51702; 81001; 87086; 87150; 87186; 99283

== ENCOUNTER 2023-07-30 20:18 | Emergency (ER) | payer MEDICARE, OTHER, SELFPAY ==
[2023-07-30 20:21] VITALS: BP 163/96; PULSE 90; RESP 18; TEMP 37.2; O2SAT 96; BMI 29.5
--- OUTSIDE RECORDS SUMMARY | 2023-07-30 20:25 | XMS_ITS | CCD ---
Author Name Unknown Address [address] [place] [address] Organization [facility] Care Team Providers Care Learning And Development Intern Name Role Phone Stanley Emerson Unavailable Unavailable Unavailable STANLEY EMERSON Primary Care Physician Unavail able MD Stanley Emerson Primary Care Provider MD Taz Barnes Admit Provider MD Margarito Valentine Other Provider [phone] MD Janice Gonzalez Other Provider DO Bernabe Cr Attending Provider [phone] MD Margarito Valentine Attending Provider MD Margarito Valentine Admit Provider Celia Ramos Unavailable Margarito Valentine Unavailable MOMO Schwab Attending Provider MD Stanley Emerson Primary Care Provider [phone] MD Taz Barnes Admit Provider MD Margarito Valentine Other Provider MD Janice Gonzalez Other Provider DO Bernabe Cr Attending Provider MD Margarito Valentine Attending Provider MD Margarito Valentine Admit Provider MOMO Schwab Attending Provider Titijazmyne Carlene Unavailable [...] Medication Allergies] Propensity to adverse reactions (disorder) [facility] Repository Medications Current Medications Medication Drug [...] take 1 tablet by mouth every hour [place] 325 mg-7.5 mg oral tablet 1 tab(s), Oral, Once, 1 tab(s), Refill(s) 0, Take 1 hour prior to procedure, [facility]/pharmacy #[id number], 187, cm, 03/11/23 13:44:00 EDT, [...] Daily, # 14 tab(s), Refills(s) 0, Pharmacy: [facility]/pharmacy #[id number], 187, cm, 06/10/23 13:43:00 EST, [...] Drug Class(es) Dates Sig (Normalized) Sig (Original) [id number] 200 actuat albuterol 0.09 mg/actuat metered dose [...] procedure, # 6 tab(s), Refills(s) 0, Pharmacy: [facility]/pharmacy #[id number], 187, cm, 09/18/22 14:39:00 EDT, Height/Length Dosing, 93, kg, 09/18/22 14:39:00 EDT, Weight Dosing Start Date: 12/03/22 Status: Ordered Start: 07-25-2022 take 1 tablet by charlene th once daily Cipro 250 mg Tab 250 mg = 1 tab(s), Oral, Daily, Take 1 tablet the day before the procedure and 1 tablet after the procedure, # 2 tab(s), Refills(s) 0, Pharmacy: [facility]/pharmacy #[id number], 187, cm, 06/11/22 9:11:00 EST, [...] 05-22-2022 Episodic Other aftercare (1 source) Other longterm (current) drug therapy; Translations: [OTH [facility] CURRENT DRUG THERAPY] Onset: 09-23-2022 Episodic Other aftercare (1 source) retirement (current) use of anticoagulants; 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 Patient Educationon 06-30-19 Patient Education Urology Acute [...] these instructions at home: Medicines ? Take [id number] and prescription medicines only as told by [...] provider. Document Revised: 01/31/2021 Document Reviewed: 01/31/2021 [employer] Patient Education ? 2022 [employer]. [facility] Urology Office/Clinic Noteon 06-30-2023 Urology Office/Clinic Note [...] Urinary retention (R33.9: Retention of urine, unspecified) [facility] ER on 09/15/22 due to catheter [...] [facility] [address], [place] [address]- [phone] Additional Instructions: 1 day for catheter removal [...] Use:. Cigarettes, (more content not included)... Normal [facility] Comment on above: Result Comment: Elec tronically Signed By: Katia SAMUELS MD\.br\Date and Time Signed: 06/30/23 14:32 EST\.br\Electronically Co-Signed By: Apple Escoto\.br\Date and Time Co-Signed: 06/30/23 14:30 EST [facility] Fish and Urine Cyt o ([facility])on 06-26-2023 [facility] UC Revision Information Invalid Interpretation Code [facility] Comment on above: Result Comment: Brayan ection Reason -[ Fredi Stephen, 06/26/23 - 10:32 ] Corrected report issued to update PMS/PWS. The diagnosis remains unchanged. Correction Notes - Performed By: #### 1 [id number] ####[facility] [address] [place] [address] Ambulatory Visit Summaryon 0 06-16-2023 Ambulatory Visit Summary ALEX ANDERSON :1945 Visit Date:06/16/2023 Ambulatory Visit Instructions Your Diagnosis BPH with urinary obstruction Your Care Team Attending Physician - ARLENE CASILLAS, Katia Hall Primary Care Physician - IDANIA CASILLAS, STANLEY Rich This Is Your Medications List acetaminophen-hydrocodone ([place] 325 mg-7.5 mg oral tablet) albuterol (Albuterol [...] CASILLAS, Katia Hall Where: [facility] Reminderson 06-12-2023 Reminders - From: Dana Rivas To: [facility] - Recalls Arlene; Sent: 09/18/2022 15:49:30 EDT Show up: 01/24/2023 15:49:00 EDT Subject: Cysto/FISH/cytol Due Date/Time: 02/10/2023 15:49:00 EDT Reminder/Recall Patient needs scheduled for 3 mo Cysto/FISH/cytol (bt ck) in Feb 2023 Patient sched for 03/11/23 in [place] office. Pt will be due in May 2023.LG Patient had cysto/Rezum on 06/10/23. He will be due in August 2023.LG [facility] Consent for Procedure/Surger yon 06-10-2023 Consent for Procedure/Surgery [id number]#[id number] [facility] Consent for Treatmenton 05-26 Consent for Treatment [id number]#[id number] [facility] IntraOperative Documentson 0 06-10-2023 IntraOperative Documents [id number]#[id number] Normal [facility] Main OR Intraoperative Recor don 06-10-2023 Main OR Intraoperative Record IntraOp Document Type FTURO Summary Primary Physician: Katia SAMUELS MD Finalized Date/Time: 06/10/23 15:18:46 Pt. Name: ANDERSONALEX./Sex: 1945 Male Med Rec #: [id number] Physician: Katia SAMUELS MD Financial #: [id number] Pt. Type: O Room/Bed: / Admit/Disch: 06/10/23 [...] Kathleen Lai Role Performed Surgeon - Primary Reading Interventionist - Primary Scrub - Primary Time In 06/10/23 14:32:00 06/10/23 14:32:00 06/10/23 14:32:00 Time Out 06/10/23 15:13:00 06/10/23 15:13:00 06/10/23 15:13:00 Procedure CYSTOSCOPY LOCAL CYSTOSCOPY LOCAL CYSTOSCOPY LOCAL REZUM(.) REZUM(.) REZUM(.) Daisy piña counter supervisor in room orienting Last Modified By: Clifford RN, CNOR, Clifford RN, CNOR, Clifford RN, KATEOR, Gayatri 06/10/23 Gayatri 06/10/23 Gayatri 06/10/23 15:07:13 15:07:13 15:07:13 Surgical Procedures FTURO Entry 1 Procedure Description Procedure CYSTOSCOPY LOCAL REZUM Modifiers . Surgeon Description cysto, REZUM treatment x 12 Primary Procedure Yes Primary Surgeon Katia SAMUESL MD Start 06/10/23 14:40:00 Stop 06/10/23 15:07:00 [...] WOLFGANG Horton RN, Ruthann 06/10/23 15:18 Normal [facility] Main OR Preoperative Recordo n 06-10-2023 Main OR Preoperative Record Holding Area Document Type FTURO Summary Primary Physician: Katia SAMUELS MD Finalized Date/Time: 06/10/23 14:49:26 Pt. Name: ALEX ANDERSON/Sex: 1945 Male Med Rec #: [id number] Physician: Katia SAMUELS MD Financial #: [id number] Pt. Type: O Room/Bed: / Admit/Disch: 06/10/23 12:50:19 - Institution: Case Times Holding FTURO Pre-Care Text: Verifies consent for planned procedure, identifies individual values and wishes concerning care, includes family members in perioperative teaching Secures patient's records' belongings, and valuables, maintains patient's dignity and privacy, and maintains patient confidentiality Entry 1 In Holding 06/10/23 13:39:00 Outcomes Met? Yes Last Modified By: Daaynara Neal RN 06/10/23 13:39:14 Post-Care Text: The [...] GLASSES; BILATERAL Limitations: UP AD JOSIAH. PT [place] Comment: CATARACT LENS IMPLANTS Complaints of Pain: [...] WOLFGANG Horton RN, Ruthann 06/10/23 14:49 Normal [facility] Operative Reporton Operative Report Patient: MELISSA [...] satisfactory condition, Discharge instructions are provided. Normal [facility] Comment on above: Result Comment: Elec [...] with antibiotic coverage, Follow up arranged. Normal [facility] Comment on above: Result Comment: Elec tronically Signed By: Katia SAMUELS MD.br\Date and Time Signed: 06/10/23 15:20 EST [facility] Fish and Urine Cyt o ([facility])on 06-10-2023 [facility] Method of Extraction Catheterized Normal [facility] Comment on above: Performed By: #### 1 [id number] ####[facility] [id number] [facility] [place] [address] [facility] Number of Jars 1 Invalid Interpretation Code [facility] Comment on above: Performed By: #### 1 [id number] ####[facility] [id number] [facility] [place] [address] [facility] Specimen Urine Normal [facility] Comment on above: Performed By: #### 1 [id number] ####[facility] [address] [facility] [place] [address] [facility] Type of Service Technical Only Normal [facility] Comment on above: Performed By: #### 1 [id number] ####[facility] [address] [place] [address] Alanine aminotransferase [En zymatic activity/volume] in Serum or PlasmaOrdered By: Celia Ramos on 04-08-2023 ALT [Catalytic activity/Vol] 17 U/L 7-52 [facility] Albumin [Mass/volume] in Ser um or Plasma by Bromocresol green (BCG) dye binding methoOrdered By: Celia Ramos on 04-08-2023 Albumin BCG dye [Mass/Vol] 4.2 g/dL 3.5-5.7 [facility] Alkaline phosphatase [Enzyma tic activity/volume] in Serum or PlasmaOrdered By: Celia Ramos on 04-08-2023 ALP [Catalytic activity/Vol] 72 U/L 34-104 [facility] Aspartate aminotransferase [ Enzymatic activity/volume] in Serum or PlasmaOrdered By: Celia Ramos on 04-08-2023 AST [Catalytic activity/Vol] 16 U/L 13-39 [facility] Automated erythrocytes count in urine sediment (number/area)Ordered By: Celia Ramos on 04-08-2023 RBC Auto (Urine sed) [#/Area] 3-4 [HPF] 0-4 [facility] Automated leukocytes count i n urine sediment (number/area)Ordered By: Celia Ramos on 04-08-2023 WBC Auto (Urine sed) [#/Area] 50-100 [HPF] 0-4 [facility] Bilirubin Test strip Ql (U)O rdered By: Celia Ramos on 04-08-2023 Bilirubin Ql (U) Negative Negative [facility] Bilirubin.total [Mass/volume ] in Serum or PlasmaOrdered By: Celia Ramos on 04-08-2023 Bilirubin [Mass/Vol] 0.5 mg/dL 0.3-1.0 [facility] Calcium [Mass/volume] in Ser um or PlasmaOrdered By: Celia Ramos on 04-08-2023 Calcium [Mass/Vol] 9.3 mg/dL 8.6-10.3 [facility] Carbon dioxide, total [Moles /volume] in Serum or PlasmaOrdered By: Celia Ramos on 04-08-2023 CO2 [Moles/Vol] 31.6 mmol/L 21.0-31.0 [facility] Chloride [Moles/volume] in S marium or PlasmaOrdered By: Celia Ramos on 04-08-2023 Chloride [Moles/Vol] 107 mmol/L 98-107 [facility] Cholesterol [Mass/volume] in Serum or PlasmaOrdered By: Teo Stokes on 04-08-2023 Cholesterol [Mass/Vol] 107 mg/dL 140-200 [facility] Comment on above: Chol less than 200 m g/dl low riskChol 201-239 mg/dl borderline riskChol 240 mg/dl and greater high risk Cholesterol in LDL Calc [Mas s/Vol]Ordered By: Teo Stokes on 04-08-2023 Cholesterol in LDL [Mass/Vol] 47 mg/dL 0-100 [facility] Comment on above: LDL ATP III CLASSIFI CATIONLDL less than 100 mg/dL OptimalLDL 100-129 mg/dL Near or above optimalLDL 130-159 mg/dL Borderline highLDL 160-189 mg/dL HighLDL greater than 189 mg/dL Very high Cholesterol in VLDL Calc [Ma ss/Vol]Ordered By: Teo Stokes on 04-08-2023 Cholesterol in VLDL [Mass/Vol] 26 mg/dL [facility] Color Auto (U)Ordered By: Jonh Ramos on 04-08-2023 Color (U) Yellow Yellow [facility] Comprehensive Metabolic Pane howard 04-08-2023 Albumin [Mass/Vol] 4.2 g/dL Normal 3.5-5.7 [facility] Comment on above: Order Comment: Reaso n for Exam Acute kidney injury;Chronic kidney disease, stage 3b;Bilater Performed By: #### V [id number], MANDI, B12, MG, PHOS, CMP, FOL, FE and TIBC, URIC #### [facility] [address] Albumin/Globulin [Mass ratio] 1.5 {ratio} Normal [facility] Comment on above: Order Comment: Reaso n for Exam Acute kidney injury;Chronic kidney disease, stage 3b;Bilater Performed By: #### V [id number], MANDI, B12, MG, PHOS, CMP, FOL, FE and TIBC, URIC #### [facility] [address] [place] [id number] [facility] ALP [Catalytic activity/Vol] 72 U/L Normal 34-104 [facility] Comment on above: Order Comment: Reaso n for Exam Acute kidney injury;Chronic kidney disease, stage 3b;Bilater Performed By: #### V [id number], MANDI, B12, MG, PHOS, CMP, FOL, FE and TIBC, URIC #### [facility] [address] [place] [id number] [facility] ALT [Catalytic activity/Vol] 17 U/L Normal 7-52 [facility] Comment on above: Order Comment: Reaso n for Exam Acute kidney injury;Chronic kidney disease, stage 3b;Bilater Performed By: #### V [id number], MANDI, B12, MG, PHOS, CMP, FOL, FE and TIBC, URIC #### [facility] [address] [place] [id number] [facility] Anion gap [Moles/Vol] 8.9 mmol/L Normal 6.0-15.0 [facility] Comment on above: Order Comment: Reaso n for Exam Acute kidney injury;Chronic kidney disease, stage 3b;Bilater Performed By: #### V [id number], MANDI, B12, MG, PHOS, CMP, FOL, FE and TIBC, URIC #### [facility] [address] AST [Catalytic activity/Vol] 16 U/L Normal 13-39 [facility] Comment on above: Order Comment: Reaso n for Exam Acute kidney injury;Chronic kidney disease, stage 3b;Bilater Performed By: #### V [id number], MANDI, B12, MG, PHOS, CMP, FOL, FE and TIBC, URIC #### [facility] [address] Bilirubin [Mass/Vol] 0.5 mg/dL Normal 0.3-1.0 [facility] Comment on above: Order Comment: Reaso n for Exam Acute kidney injury;Chronic kidney disease, stage 3b;Bilater Performed By: #### V [id number], MANDI, B12, MG, PHOS, CMP, FOL, FE and TIBC, URIC #### [facility] [address] Calcium [Mass/Vol] 9.3 mg/dL Normal 8.6-10.3 [facility] Comment on above: Order Comment: Reaso n for Exam Acute kidney injury;Chronic kidney disease, stage 3b;Bilater Performed By: #### V [id number], MANDI, B12, MG, PHOS, CMP, FOL, FE and TIBC, URIC #### [facility] [address] Chloride [Moles/Vol] 107 mmol/L Normal 98-107 [facility] Comment on above: Order Comment: Reaso n for Exam Acute kidney injury;Chronic kidney disease, stage 3b;Bilater Performed By: #### V [id number], MANDI, B12, MG, PHOS, CMP, FOL, FE and TIBC, URIC #### [facility] [address] CO2 [Moles/Vol] 31.6 mmol/L High 21.0-31.0 [facility] Comment on above: Order Comment: Reaso n for Exam Acute kidney injury;Chronic kidney disease, stage 3b;Bilater Performed By: #### V [id number], MANDI, B12, MG, PHOS, CMP, FOL, FE and TIBC, URIC #### [facility] [address] Creatinine [Mass/Vol] 1.41 mg/dL High 0.70-1.30 [facility] Comment on above: Order Comment: Reaso n for Exam Acute kidney injury;Chronic kidney disease, stage 3b;Bilater Performed By: #### V [id number], MANDI, B12, MG, PHOS, CMP, FOL, FE and TIBC, URIC #### [facility] [address] GFR/1.73 sq M.predicted MDRD (S/P/Bld) [Vol rate/Area] 50.692 mL/min/{1.73_m2} Normal [facility] Comment on above: Order Comment: Reaso n for Exam Acute kidney injury;Chronic kidney disease, stage 3b;Bilater Performed By: #### V [id number], MANDI, B12, MG, PHOS, CMP, FOL, FE and TIBC, URIC #### [facility] [address] Globulin (S) [Mass/Vol] 2.8 g/dL Normal [facility] Comment on above: Order Comment: Reaso n for Exam Acute kidney injury;Chronic kidney disease, stage 3b;Bilater Performed By: #### V [id number], MANDI, B12, MG, PHOS, CMP, FOL, FE and TIBC, URIC #### [facility] [address] Glucose [Mass/Vol] 107 mg/dL High 70-100 [facility] Comment on above: Order Comment: Reaso n for Exam Acute kidney injury;Chronic kidney disease, stage 3b;Bilater Result Comment: [place] Glucose Reference Range is dependent on time and content of last meal. Glucose of more than 200 mg/dL in a nonstressed, ambulatory subject supports the diagnosis of Diabetes Mellitus. ADA recommended reference range Performed By: #### V [id number], MANDI, B12, MG, PHOS, CMP, FOL, FE and TIBC, URIC #### [facility] [address] Potassium [Moles/Vol] 4.5 mmol/L Normal 3.5-5.1 [facility] Comment on above: Order Comment: Reaso n for Exam Acute kidney injury;Chronic kidney disease, stage 3b;Bilater Performed By: #### V [id number], MANDI, B12, MG, PHOS, CMP, FOL, FE and TIBC, URIC #### [facility] [address] Protein [Mass/Vol] 7.0 g/dL Normal 6.4-8.9 [facility] Comment on above: Order Comment: Reaso n for Exam Acute kidney injury;Chronic kidney disease, stage 3b;Bilater Performed By: #### V [id number], MANDI, B12, MG, PHOS, CMP, FOL, FE and TIBC, URIC #### [facility] [address] Sodium [Moles/Vol] 143 mmol/L Normal 136-145 [facility] Comment on above: Order Comment: Reaso n for Exam Acute kidney injury;Chronic kidney disease, stage 3b;Bilater Performed By: #### V [id number], MANDI, B12, MG, PHOS, CMP, FOL, FE and TIBC, URIC #### [facility] [address] [place] [address] [place] Urea nitrogen [Mass/Vol] 27 mg/dL High 7-25 [facility] Comment on above: Order Comment: Reaso n for Exam Acute kidney injury;Chronic kidney disease, stage 3b;Bilater Performed By: #### V [id number], MANDI, B12, MG, PHOS, CMP, FOL, FE and TIBC, URIC #### [facility] [address] Creatinine [Mass/volume] in Serum or PlasmaOrdered By: Celia Ramos on 04-08-2023 Creatinine [Mass/Vol] 1.41 mg/dL 0.70-1.30 [facility] Creatinine [Mass/volume] in UrineOrdered By: Celia Ramos on 04-08-2023 Creatinine (U) [Mass/Vol] 90.0 mg/dL 14.0-26.0 [facility] Dipstick and Microscopicon 1 06-08-2022 Appearance (U) Cloudy Critically abnormal Clear [facility] Comment on above: Order Comment: Reaso n for Exam Acute kidney injury;Chronic kidney disease, stage 3b;Bilater Performed By: #### V [id number], MANDI, B12, MG, PHOS, CMP, FOL, FE and TIBC, URIC #### [facility] [address] Bacteria,Urine 4+ High None Seen [facility] Comment on above: Order Comment: Reaso n for Exam Acute kidney injury;Chronic kidney disease, stage 3b;Bilater Performed By: #### V [id number], MANDI, B12, MG, PHOS, CMP, FOL, FE and TIBC, URIC #### [facility] [address] Bilirubin,Urine Negative Normal Negative [facility] Comment on above: Order Comment: Reaso n for Exam Acute kidney injury;Chronic kidney disease, stage 3b;Bilater Performed By: #### V [id number], MANDI, B12, MG, PHOS, CMP, FOL, FE and TIBC, URIC #### [facility] [address] [place] [address] Color (U) Yellow Normal Yellow [facility] Comment on above: Order Comment: Reaso n for Exam Acute kidney injury;Chronic kidney disease, stage 3b;Bilater Performed By: #### V [id number], MANDI, B12, MG, PHOS, CMP, FOL, FE and TIBC, URIC #### [facility] [address] [place] [address] Glucose Ql (U) Normal Normal Normal [facility] Comment on above: Order Comment: Reaso n for Exam Acute kidney injury;Chronic kidney disease, stage 3b;Bilater Performed By: #### V [id number], MANDI, B12, MG, PHOS, CMP, FOL, FE and TIBC, URIC #### [facility] [address] [place] [address] Hyaline Casts,Urine 9-19 High 0-8 [facility] Comment on above: Order Comment: Reaso n for Exam Acute kidney injury;Chronic kidney disease, stage 3b;Bilater Result Comment: PERF ORMED BY: [place] [address] PATHOLOGIST JEWEL HOLE DRILLER OREN OWEN M.D. Performed By: #### V [id number], MANDI, B12, MG, PHOS, CMP, FOL, FE and TIBC, URIC #### [facility] [address] Ketones Ql (U) Negative Normal Negative [facility] Comment on above: Order Comment: Reaso n for Exam Acute kidney injury;Chronic kidney disease, stage 3b;Bilater Performed By: #### V [id number], MANDI, B12, MG, PHOS, CMP, FOL, FE and TIBC, URIC #### [facility] [address] Leukocyte esterase Test strip Ql (U) 4+ High Negative [facility] Comment on above: Order Comment: Reaso n for Exam Acute kidney injury;Chronic kidney disease, stage 3b;Bilater Performed By: #### V [id number], MANDI, B12, MG, PHOS, CMP, FOL, FE and TIBC, URIC #### [facility] [address] Nitrite,Urine Positive High Negative [facility] Comment on above: Order Comment: Reaso n for Exam Acute kidney injury;Chronic kidney disease, stage 3b;Bilater Performed By: #### V [id number], MANDI, B12, MG, PHOS, CMP, FOL, FE and TIBC, URIC #### [facility] [address] Occult Blood,Urine 1+ High Negative [facility] Comment on above: Order Comment: Reaso n for Exam Acute kidney injury;Chronic kidney disease, stage 3b;Bilater Result Comment: PERF ORMED BY: [place] [address] PATHOLOGIST JEWEL HOLE DRILLER OREN OWEN M.D. Performed By: #### V [id number], MANDI, B12, MG, PHOS, CMP, FOL, FE and TIBC, URIC #### [facility] [address] [place] [address] pH (U) 7.0 [pH] Normal 5.0-9.0 [facility] Comment on above: Order Comment: Reaso n for Exam Acute kidney injury;Chronic kidney disease, stage 3b;Bilater Performed By: #### V [id number], MANDI, B12, MG, PHOS, CMP, FOL, FE and TIBC, URIC #### [facility] [address] Protein,Urine Trace High Negative [facility] Comment on above: Order Comment: Reaso n for Exam Acute kidney injury;Chronic kidney disease, stage 3b;Bilater Performed By: #### V [id number], MANDI, B12, MG, PHOS, CMP, FOL, FE and TIBC, URIC #### [facility] [address] [place] [address] RBC,Urine 3-4 Normal 0-4 [facility] Comment on above: Order Comment: Reaso n for Exam Acute kidney injury;Chronic kidney disease, stage 3b;Bilater Performed By: #### V [id number], MANDI, B12, MG, PHOS, CMP, FOL, FE and TIBC, URIC #### [facility] [address] [place] [address] Specificy [place],Urine 1.017 Normal 1.00 1-1.03 0 [facility] Comment on above: Order Comment: Reaso n for Exam Acute kidney injury;Chronic kidney disease, stage 3b;Bilater Performed By: #### V [id number], MANDI, B12, MG, PHOS, CMP, FOL, FE and TIBC, URIC #### [facility] [address] [place] [address] Squamous Epithelial Cell,Urine 0-1 Normal 0-2 [facility] Comment on above: Order Comment: Reaso n for Exam Acute kidney injury;Chronic kidney disease, stage 3b;Bilater Performed By: #### V [id number], MANDI, B12, MG, PHOS, CMP, FOL, FE and TIBC, URIC #### [facility] [address] Urobilinogen,Urine Normal Normal Normal [facility] Comment on above: Order Comment: Reaso n for Exam Acute kidney injury;Chronic kidney disease, stage 3b;Bilater Performed By: #### V [id number], MANDI, B12, MG, PHOS, CMP, FOL, FE and TIBC, URIC #### [facility] [address] WBC,Urine 50-100 High 0-4 [facility] Comment on above: Order Comment: Reaso n for Exam Acute kidney injury;Chronic kidney disease, stage 3b;Bilater Performed By: #### V [id number], MANDI, B12, MG, PHOS, CMP, FOL, FE and TIBC, URIC #### [facility] [address] Erythrocyte distribution wid th Auto (RBC) [Ratio]Ordered By: Celia Ramos on 04-08-2023 Erythrocyte distribution width (RBC) [Ratio] 15.7 % 12.0-14.8 [facility] Ferritinon 04-08-2023 Ferritin [Mass/Vol] 34.1 ng/mL Normal 23.9-336.2 [facility] Comment on above: Order Comment: Reaso n for Exam Acute kidney injury;Chronic kidney disease, stage 3b;Bilater Performed By: #### V [id number], MANDI, B12, MG, PHOS, CMP, FOL, FE and TIBC, URIC #### [facility] [address] [place] [address] Ferritin [Mass/volume] in Se rum or PlasmaOrdered By: Celia Ramos on 04-08-2023 Ferritin [Mass/Vol] 34.1 ng/mL 23.9-336.2 [facility] Folateon 04-08-2023 Folate 34.0 ng/mL Normal >5.9 [facility] Comment on above: Order Comment: Reaso n for Exam Acute kidney injury;Chronic kidney disease, stage 3b;Bilater Result Comment: Caryn te reference range: >5.9 ng/ml The WHO technical consultation on folate and vitamin b12 deficiencies has determined that folate concentrations less than 4 ng/ml are considered deficient. Performed By: #### V [id number], MANDI, B12, MG, PHOS, CMP, FOL, FE and TIBC, URIC #### [facility] [address] Folate [Mass/volume] in Seru m or PlasmaOrdered By: Celia Ramos on 04-08-2023 Folate [Mass/Vol] 34.0 ng/mL >5.9 [facility] Comment on above: Folate reference ran ge: >5.9 ng/mlThe WHO technical consultation on folate and vitamin [id number] has determined that folate concentrations lessthan 4 ng/ml are considered deficient. Globulin Calc (S) [Mass/Vol] Ordered By: Celia Ramos on 04-08-2023 Globulin (S) [Mass/Vol] 2.8 g/dL [facility] Glucose [Mass/volume] in Ser um or PlasmaOrdered By: Celia Ramos on 04-08-2023 Glucose [Mass/Vol] 107 mg/dL 70-100 [facility] Comment on above: ADA recommended refe rence rangeRandom Glucose Reference Range is dependent on time and content of last meal. Glucose of more than 200 mg/dL in a nonstressed, ambulatory subject supports the diagnosis of Diabetes Mellitus. Hematocrit Auto (Bld) [Volum e fraction]Ordered By: Celia Ramos on 04-08-2023 Hematocrit (Bld) [Volume fraction] 43.8 % 38.8-50.0 [facility] Hemoglobin [Mass/volume] in BloodOrdered By: Celia Ramos on 04-08-2023 Hemoglobin (Bld) [Mass/Vol] 14.3 g/dL 13.0-17.0 [facility] Hemogram CBC Without Diffon 04-08-2023 Erythrocyte distribution width (RBC) [Ratio] 15.7 % High 12.0-14.8 [facility] Comment on above: Order Comment: Reaso n for Exam Acute kidney injury;Chronic kidney disease, stage 3b;Bilater Performed By: #### V [id number], MANDI, B12, MG, PHOS, CMP, FOL, FE and TIBC, URIC #### [address] Hematocrit (Bld) [Volume fraction] 43.8 % Normal 38.8-50.0 [facility] Comment on above: Order Comment: Reaso n for Exam Acute kidney injury;Chronic kidney disease, stage 3b;Bilater Performed By: #### V [id number], MANDI, B12, MG, PHOS, CMP, FOL, FE and TIBC, URIC #### [address] Hemoglobin (Bld) [Mass/Vol] 14.3 g/dL Normal 13.0-17.0 [facility] Comment on above: Order Comment: Reaso n for Exam Acute kidney injury;Chronic kidney disease, stage 3b;Bilater Performed By: #### V [id number], MANDI, B12, MG, PHOS, CMP, FOL, FE and TIBC, URIC #### [address] MCH (RBC) [Entitic mass] 27.3 pg Low 27.5-35.2 [facility] Comment on above: Order Comment: Reaso n for Exam Acute kidney injury;Chronic kidney disease, stage 3b;Bilater Performed By: #### V [id number], MANDI, B12, MG, PHOS, CMP, FOL, FE and TIBC, URIC #### [address] MCV (RBC) [Entitic vol] 83.8 fL Normal 83.5-101 F [facility] Comment on above: Order Comment: Reaso n for Exam Acute kidney injury;Chronic kidney disease, stage 3b;Bilater Performed By: #### V [id number], MANDI, B12, MG, PHOS, CMP, FOL, FE and TIBC, URIC #### [address] Mean Corpuscular HGB Conc 32.6 g/dL Normal 32.5-35.6 [facility] Comment on above: Order Comment: Reaso n for Exam Acute kidney injury;Chronic kidney disease, stage 3b;Bilater Performed By: #### V [id number], MANDI, B12, MG, PHOS, CMP, FOL, FE and TIBC, URIC #### [facility] [address] [place] [address] Platelet mean volume (Bld) [Entitic vol] 8.6 fL Normal 6.6-10.1 [facility] Comment on above: Order Comment: Reaso n for Exam Acute kidney injury;Chronic kidney disease, stage 3b;Bilater Result Comment: PERF ORMED BY: [place] [address] PATHOLOGIST JEWEL HOLE DRILLER OREN OWEN M.D. Performed By: #### V [id number], MANDI, B12, MG, PHOS, CMP, FOL, FE and TIBC, URIC #### [address] Platelets (Bld) [#/Vol] 201 10*3/uL Normal 150-450 [facility] Comment on above: Order Comment: Reaso n for Exam Acute kidney injury;Chronic kidney disease, stage 3b;Bilater Performed By: #### V [id number], MANDI, B12, MG, PHOS, CMP, FOL, FE and TIBC, URIC #### [address] RBC (Bld) [#/Vol] 5.22 10*6/uL Normal 3.90-5.60 [facility] Comment on above: Order Comment: Reaso n for Exam Acute kidney injury;Chronic kidney disease, stage 3b;Bilater Performed By: #### V [id number], MANDI, B12, MG, PHOS, CMP, FOL, FE and TIBC, URIC #### [address] WBC (Bld) [#/Vol] 8.4 10*3/uL Normal 4.1-10.5 [facility] Comment on above: Order Comment: Reaso n for Exam Acute kidney injury;Chronic kidney disease, stage 3b;Bilater Performed By: #### V [id number], MANDI, B12, MG, PHOS, CMP, FOL, FE and TIBC, URIC #### [facility] [address] [place] [id number] [place] Iron [Mass/volume] in Serum or PlasmaOrdered By: Celia Ramos on 04-08-2023 Iron [Mass/Vol] 53 ug/dL 50-212 [facility] Iron and TIBC Profileon 03-26 % Iron Saturation 14.3 % Low 20-50 [facility] Comment on above: Order Comment: Reaso n for Exam Acute kidney injury;Chronic kidney disease, stage 3b;Bilater Performed By: #### V [id number], MANDI, B12, MG, PHOS, CMP, FOL, FE and TIBC, URIC #### [facility] [address] Iron [Mass/Vol] 53 ug/dL Normal 50-212 [facility] Comment on above: Order Comment: Reaso n for Exam Acute kidney injury;Chronic kidney disease, stage 3b;Bilater Performed By: #### V [id number], MANDI, B12, MG, PHOS, CMP, FOL, FE and TIBC, URIC #### [facility] [address] [place] [id number] [facility] Total Iron Binding Capacity 370 ug/dL Normal 255-450 [facility] Comment on above: Order Comment: Reaso n for Exam Acute kidney injury;Chronic kidney disease, stage 3b;Bilater Performed By: #### V [id number], MANDI, B12, MG, PHOS, CMP, FOL, FE and TIBC, URIC #### [facility] [address] [place] [id number] [place] Transferrin [Mass/Vol] 264 mg/dL Normal 203-362 [facility] Comment on above: Order Comment: Reaso n for Exam Acute kidney injury;Chronic kidney disease, stage 3b;Bilater Performed By: #### V [id number], MANDI, B12, MG, PHOS, CMP, FOL, FE and TIBC, URIC #### [facility] [address] [place] [id number] [place] Iron binding capacity [Mass/ volume] in Serum or PlasmaOrdered By: Celia Ramos on 04-08-2023 Iron binding capacity [Mass/Vol] 370 ug/dL 255-450 [facility] Iron saturation [Mass Fracti on] in Serum or PlasmaOrdered By: Celia Ramos on 04-08-2023 Iron saturation [Mass fraction] 14.3 % 20-50 [facility] Ketones Auto test strip (U) [Mass/Vol]Ordered By: Celia Ramos on 04-08-2023 Ketones (U) [Mass/Vol] Negative Negative [facility] - UrinalysisOrder ed By: Celia Ramos on 04-08-2023 Hyaline casts LM Ql (Urine sed) 02-11 [LPF] 0-8 [facility] Leukocytes [#/volume] correc phil for nucleated erythrocytes in Blood by Automated counOrdered By: Celia Ramos on 04-08-2023 WBC corrected for nucl RBC Auto (Bld) [#/Vol] 8.4 10*3/uL 4.1-10.5 [facility] Lipid Panelon 04-08-2023 Cholesterol [Mass/Vol] 107 mg/dL Low 140-200 [facility] Comment on above: Result Comment: Chol less than 200 mg/dl low risk Chol 201-239 mg/dl borderline risk Chol 240 mg/dl and greater high risk Performed By: #### V [id number], MANDI, B12, MG, PHOS, CMP, FOL, FE and TIBC, URIC #### [facility] [address] [place] [address] [place] Cholesterol in HDL [Mass/Vol] 34 mg/dL Normal 23-92 [facility] Comment on above: Result Comment: HDL CHOL ATP-III CLASSIFICATION Cardiovascular Risk HDL > or equal to 60 mg/dL LOW HDL < 40 mg/dL HIGH Performed By: #### V [id number], MANDI, B12, MG, PHOS, CMP, FOL, FE and TIBC, URIC #### [facility] [address] Cholesterol.total/Sonya sterol in HDL [Mass ratio] 3.1 {ratio} Normal <5.0 [facility] Comment on above: Result Comment: PERF ORMED BY: [place] [address] PATHOLOGIST JEWEL HOLE DRILLER OREN OWEN M.D. Performed By: #### V [id number], MANDI, B12, MG, PHOS, CMP, FOL, FE and TIBC, URIC #### [facility] [address] LDL Cholesterol,Calculated 47 mg/dL Normal 0-100 [facility] Comment on above: Result Comment: LDL ATP III CLASSIFICATION LDL less than 100 mg/dL Optimal LDL 100-129 mg/dL Near or above optimal LDL 130-159 mg/dL Borderline high LDL 160-189 mg/dL High LDL greater than 189 mg/dL Very high Performed By: #### V [id number], MANDI, B12, MG, PHOS, CMP, FOL, FE and TIBC, URIC #### [address] Triglyceride w/Reflex 131 mg/dL Normal 0-149 [facility] Comment on above: Result Comment: TRIG ATP III CLASSIFICATION TRIG less than 150 mg/dL Normal TRIG 150-199 mg/dL Borderline high TRIG 200-500 mg/dL High TRIG greater than 500 mg/dL Very high Standard traceable to the Center for Disease Conrtrol and Prevention (CDC) test method. Performed By: #### V [id number], MANDI, B12, MG, PHOS, CMP, FOL, FE and TIBC, URIC #### [facility] [address] VLDL CHOLESTEROL 26 mg/dL Normal [facility] Comment on above: Performed By: #### V [id number], MANDI, B12, MG, PHOS, CMP, FOL, FE and TIBC, URIC #### [address] MCH Auto (RBC) [Entitic mass ]Ordered By: Celia Ramos on 04-08-2023 MCH (RBC) [Entitic mass] 27.3 pg 27.5-35.2 [facility] MCHC Auto (RBC) [Mass/Vol]Or dered By: Celia Ramos on 04-08-2023 MCHC (RBC) [Mass/Vol] 32.6 g/dL 32.5-35.6 [facility] MCV Auto (RBC) [Entitic vol] Ordered By: Celia Ramos on 04-08-2023 MCV (RBC) [Entitic vol] 83.8 fL 83.5-101 F [facility] Magnesiumon 04-08-2023 Magnesium [Mass/Vol] 2.2 mg/dL Normal 1.9-2.7 [facility] Comment on above: Order Comment: Reaso n for Exam Acute kidney injury;Chronic kidney disease, stage 3b;Bilater Performed By: #### V [id number], MANDI, B12, MG, PHOS, CMP, FOL, FE and TIBC, URIC #### [facility] [address] [place] [address] [place] Magnesium [Mass/volume] in S marium or PlasmaOrdered By: Celia Ramos on 04-08-2023 Magnesium [Mass/Vol] 2.2 mg/dL 1.9-2.7 [facility] Nitrite Test strip Ql (U)Ord ered By: Ceila Ramos on 04-08-2023 Nitrite Ql (U) Positive Negative [facility] No Panel InformationOrdered By: Celia Ramos on 04-08-2023 Estimated GFR (CKD-EPI) 50.692 mL/Min [facility] Creatinine Clearance (Chem N/A [facility] Parathyrin.intact [Mass/volu me] in Serum or PlasmaOrdered By: Celia Ramos on 04-08-2023 Parathyrin.intact [Mass/Vol] 76.6 pg/mL [facility] Parathyroid Hormone Intacton 04-08-2023 Parathyroid Hormone Intact 76.6 pg/mL Normal [facility] Comment on above: Order Comment: Reaso n for Exam Acute kidney injury;Chronic kidney disease, stage 3b;Bilater Result Comment: PERF ORMED BY: [facility] [address] [place] [address] PATHOLOGIST JEWEL HOLE DRILLER OREN OWEN M.D. Performed By: #### V [id number], MANDI, B12, MG, PHOS, CMP, FOL, FE and TIBC, URIC #### [facility] [address] [place] [address] [place] Phosphate [Mass/volume] in S marium or PlasmaOrdered By: Celia Ramos on 04-08-2023 Phosphate [Mass/Vol] 2.8 mg/dL 2.5-4.5 [facility] Phosphoruson 04-08-2023 Phosphate [Mass/Vol] 2.8 mg/dL Normal 2.5-4.5 [facility] Comment on above: Order Comment: Reaso n for Exam Acute kidney injury;Chronic kidney disease, stage 3b;Bilater Performed By: #### V [id number], MANDI, B12, MG, PHOS, CMP, FOL, FE and TIBC, URIC #### [facility] [address] [place] [address] [place] Platelet mean volume Auto (B ld) [Entitic vol]Ordered By: Celia Ramos on 04-08-2023 Platelet mean volume (Bld) [Entitic vol] 8.6 fL 6.6-10.1 [facility] Platelets Auto (Bld) [#/Vol] Ordered By: Celia Ramos on 04-08-2023 Platelets (Bld) [#/Vol] 201 10*3/uL 150-450 [facility] Potassium [Moles/volume] in Serum or PlasmaOrdered By: Celia Ramos on 04-08-2023 Potassium [Moles/Vol] 4.5 mmol/L 3.5-5.1 [facility] Protein Auto test strip (U) [Mass/Vol]Ordered By: Celia Ramos on 04-08-2023 Protein (U) [Mass/Vol] Trace mg/dL Negative [facility] Protein Creat Ratio Ur Rando mon 04-08-2023 Creatinine, Urine (Random) 90.0 mg/dL High 14.0-26.0 [facility] Comment on above: Order Comment: Reaso n for Exam Acute kidney injury;Chronic kidney disease, stage 3b;Bilater Performed By: #### V [id number], MANDI, B12, MG, PHOS, CMP, FOL, FE and TIBC, URIC #### [facility] [address] [place] [id number] [place] Protein (U) [Mass/Vol] 30 mg/dL High 0-9 [facility] Comment on above: Order Comment: Reaso n for Exam Acute kidney injury;Chronic kidney disease, stage 3b;Bilater Performed By: #### V [id number], MANDI, B12, MG, PHOS, CMP, FOL, FE and TIBC, URIC #### [facility] [address] Urine Protein/Creatinine Ratio 333 mg/g{Cre} High 0-200 [facility] Comment on above: Order Comment: Reaso n for Exam Acute kidney injury;Chronic kidney disease, stage 3b;Bilater Result Comment: PERF ORMED BY: [place] [address] PATHOLOGIST JEWEL HOLE DRILLER OREN OWEN M.D. Performed By: #### V [id number], MANDI, B12, MG, PHOS, CMP, FOL, FE and TIBC, URIC #### [facility] [address] Protein [Mass/volume] in Ser um or PlasmaOrdered By: Celia Ramos on 04-08-2023 Protein [Mass/Vol] 7.0 g/dL 6.4-8.9 [facility] Protein [Mass/volume] in Uri neOrdered By: Celia Ramos on 04-08-2023 Protein (U) [Mass/Vol] 30 mg/dL 0-9 [facility] RBC Auto (Bld) [#/Vol]Ordere d By: Celia Ramos on 04-08-2023 RBC (Bld) [#/Vol] 5.22 10*6/uL 3.90-5.60 [facility] Serum or plasma albumin/glob ulin mass ratioOrdered By: Celia Ramos on 04-08-2023 Albumin/Globulin [Mass ratio] 1.5 {ratio} [facility] Serum or plasma anion gap de terminationOrdered By: Celia Ramos on 04-08-2023 Anion gap [Moles/Vol] 8.9 mmol/L 6.0-15.0 [facility] Serum or plasma high density lipoprotein (HDL) cholesterol measurementOrdered By: Teo Stokes on 04-08-2023 Cholesterol in HDL [Mass/Vol] 34 mg/dL 23-92 [facility] Comment on above: HDL CHOL ATP-III CLA SSIFICATION Cardiovascular RiskHDL > or equal to 60 mg/dL LOWHDL < 40 mg/dL HIGH Serum or plasma total choles terol/high density lipoprotein (HDL) cholesterol mass ratOrdered By: Teo Stokes on 04-08-2023 Cholesterol.total/Sonya sterol in HDL [Mass ratio] 3.1 {ratio} <5.0 [facility] Sodium [Moles/volume] in Ser um or PlasmaOrdered By: Celia Ramos on 04-08-2023 Sodium [Moles/Vol] 143 mmol/L 136-145 [facility] Specific gravity Auto test s trip (U) [Rel density]Ordered By: Celia Ramos on 04-08-2023 Specific gravity (U) [Rel density] 1.017 1.001-1.03 0 [facility] Squamous epithelial cells de tection in urine sediment by light microscopyOrdered By: Celia Ramos on 04-08-2023 Epithelial cells.squamous LM Ql (Urine sed) 0-1 [HPF] 0-2 [facility] Transferrin [Mass/volume] in Serum or PlasmaOrdered By: Celia Ramos on 04-08-2023 Transferrin [Mass/Vol] 264 mg/dL 203-362 [facility] Triglyceride [Mass/volume] i n Serum or PlasmaOrdered By: Teo Stokes on 04-08-2023 Triglyceride [Mass/Vol] 131 mg/dL 0-149 [facility] Comment on above: TRIG ATP III CLASSIF ICATIONTRIG less than 150 mg/dL NormalTRIG 150-199 mg/dL Borderline highTRIG 200-500 mg/dL High TRIG greater than 500 mg/dL Very highStandard traceable to the Center for Disease Conrtrol and Prevention (CDC) test method. Urate [Mass/volume] in Serum or PlasmaOrdered By: Celia Ramos on 04-08-2023 Urate [Mass/Vol] 6.0 mg/dL 4.4-7.6 [facility] Urea nitrogen [Mass/volume] in Serum or PlasmaOrdered By: Celia Ramos on 04-08-2023 Urea nitrogen [Mass/Vol] 27 mg/dL 7- [facility] Uric Acidon 04-08-2023 Urate [Mass/Vol] 6.0 mg/dL Normal 4.4-7.6 [facility] Comment on above: Order Comment: Reaso n for Exam Acute kidney injury;Chronic kidney disease, stage 3b;Bilater Performed By: #### V [id number], MANDI, B12, MG, PHOS, CMP, FOL, FE and TIBC, URIC #### [facility] [address] Urine Cultureon 04-08-2023 Bacteria identified Cx Nom (U) ORGANISM: Klebsiella oxytoca (O:KLEOXY) [place] Count >100,000 ORGANISM: Morganella morganii (O:MORMOR) [place] Count >100,000 Aerobic RITESH Charge (NMIC56) SUSCEPTIBILITY [...] RESISTANT TO ALL B-LACTAM DRUGS. PERFORMED BY: [place] [address] PATHOLOGIST JEWEL HOLE DRILLER OREN OWEN M.D. [facility] Comment on above: Performed By: #### V [id number], MANDI, B12, MG, PHOS, CMP, FOL, FE and TIBC, URIC #### [facility] [address] [place] [address] Urine bacteria detection by automated methodOrdered By: Celia Ramos on 04-08-2023 Bacteria Auto Ql (U) 4+ None Seen [facility] Urine clarity by refractomet ry automatedOrdered By: Celia Ramos on 04-08-2023 Clarity Refractometry automated (U) Cloudy Clear [facility] Urine glucose measurement by automated test strip (mass/volume)Ordered By: Celia Ramos on 04-08-2023 Glucose Auto test strip (U) [Mass/Vol] Normal mg/dL Normal [facility] Urine hemoglobin detection b y automated test stripOrdered By: Celia Ramos on 04-08-2023 Hemoglobin Auto test strip Ql (U) 1+ Negative [facility] Urine leukocyte esterase det ection by automated test stripOrdered By: Celia Ramos on 04-08-2023 Leukocyte esterase Auto test strip Ql (U) 4+ Negative [facility] Urine protein/creatinine rat ioOrdered By: Celia Ramos on 04-08-2023 Protein/Creatinine (U) [Ratio] 333 mg/g{Cre} 0-200 [facility] Urobilinogen Auto test strip (U) [Mass/Vol]Ordered By: Celia Ramos on 04-08-2023 Urobilinogen (U) [Mass/Vol] Normal mg/dL Normal [facility] Vitamin B12on 04-08-2023 Cobalamin (Vitamin B12) [Mass/Vol] 301 pg/mL Normal 180-914 [facility] Comment on above: Order Comment: Reaso n for Exam Acute kidney injury;Chronic kidney disease, stage 3b;Bilater Performed By: #### V [id number], MANDI, B12, MG, PHOS, CMP, FOL, FE and TIBC, URIC #### [address] Vitamin B12 ser/plasOrdered By: Celia Ramos on 04-08-2023 Cobalamin (Vitamin B12) [Mass/Vol] 301 pg/mL 180-914 [facility] Vitamin D 25 Hydroxy Totalon 04-08-2023 Vitamin D 25 Hydroxy Total 37.5 ng/mL Normal 30-100 [facility] Comment on above: Order Comment: [...] practice guideline. JCEM. 2010; 96(7):1911-30. PERFORMED BY: [place] [address] PATHOLOGIST JEWEL HOLE DRILLER OREN OWEN M.D. Performed By: #### V [id number], MANDI, B12, MG, PHOS, CMP, FOL, FE and TIBC, URIC #### [facility] [address] [place] [id number] [facility] Vitamin D+Metabolites [Mass/ volume] in Serum or PlasmaOrdered By: Celia Ramos on 04-08-2023 Vitamin D+Metabolites [Mass/Vol] 37.5 ng/mL 30-100 [facility] Comment on above: VITAMIN D STATUS 25( [place])VITAMIN D RANGE (ng/mL) Deficient <20 Insufficient 20 to <30Sufficient 30 to 100Reference: Sixto MF,Federico MATA, Palomo LESLIE, et al. Evaluation,treatment, and prevention of vitamin D deficiency; an Endocrine Society clinical practice guideline. JCEM. 2010; 96(7):1911-30. pH Auto test strip (U)Ordere d By: Celia Ramos on 04-08-2023 pH (U) 7.0 [pH] 5.0-9.0 [facility] UroVysion Fish and Urine Cyt o ([facility])on 03-18-2023 UVFISH & UC Diagnosis Info Invalid Interpretation Code [facility] Comment on above: Result Comment: A:Ur [...] correlated with cytology and cystoscopy results.* CPT 00616, 16671. 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 Electronically signed by : on: 03/18/2023 13:35:55 Performed By: #### 1 [id number] ####[facility] [id number] [place] [id number] Reminderson 03-14-2023 Reminders - From: Dana Rivas To: EU - Recalls Arlene; Cc: Dana Rivas; Sent: 03/14/2023 08:18:18 EDT Show up: 07/25/2023 08:18:00 EST Subject: cysto/fish/cytol Due Date/Time: 08/11/2023 08:18:00 EDT Reminder/Recall Patient is due in August 2023 for 3 month cysto/fish/cytol Normal [facility] Consent for Procedure/Surger yon 03-12-2023 Consent for Procedure/Surgery [id number] [facility] Ambulatory Visit Summaryon 1 Ambulatory Visit Summary [...] [facility] [address], [place] [address]- Medications What How Much When Instructions Unchanged [...] kidney and (more content not included)... Normal [facility] Patient Educationon 03-11-20 23 Patient Education [...] including vitamins, herbs, eye drops, creams, and avvj-dve-sttpnns medicines. ? Any problems you or family [...] tells you to take them. ? Taking dyim-qsp-cmakskv medicines, vitamins, herbs, and supplements. Surgery safety [...] health care (more content not included)... Normal [facility] UroVysion Fish and Urine Cyt o ([facility])on 03-11-2023 [facility] Method of Extraction Bladder Urine Normal [facility] Comment on above: Performed By: #### 1 [id number] ####[facility] [id number] [place] [address] [facility] Number of Jars 1 Invalid Interpretation Code [facility] Comment on above: Performed By: #### 1 [id number] ####[facility] [address] [place] [address] [facility] Specimen Bladder Wash Normal [facility] Comment on above: Performed By: #### 1 [id number] ####[facility] [id number] [place], [place] [address] [facility] Type of Service Technical Only Normal [facility] Comment on above: Performed By: #### 1 [id number] ####[facility] [address] [place] [address] Urology Office/Clinic Noteon 03-11-2023 Urology Office/Clinic Note [...] Retention of urine, unspecified) Pt presented to [facility] ER on 09/15/22 due to catheter [...] [facility] [address], [place] [address]- Additional Instructions: Sched cysto/FISH/Cytol/BT check Patient Education Benign Prostatic Hyperplasia I, Dalila Lala , personally scribed for Dr. Samuels on 03/11/2023 14:20:53. Electronically signed by emma Lala on (more content not included)... Normal [facility] Comment on above: Result Comment: Elec [...] TABLET DAILY Tobacco Use Screening; Status:Complete; Done: [id number] You need to stop smoking. Though it is not easy, more than half of all adult smokers have quit. We encourage you to write down all the reasons you should quit smoking and set a quit date for yourself. Ask us how we can help. You may also call 2-101-FMLK-NOW for free resources and assistance.; Status:Complete - Retrospective Authorization; Done: [id number] Tobacco Use Screening; Status:Complete; Done: [id number] Patient Instructions Please bring all medicines, vitamins, [...] negative for complaint. Vitals Vital Signs Recorded: [id number] 09:57AM Heart Rate72, L Radial Ulwdqekb184, LUE, Sitting Yjbtapoop48, LUE, Sitting Height6 ft 2 in Yoylme202 lb BMI Awsjfjtxij92.35 kg/m2 BSA Calculat (more content not included)... Normal uMentioned Tobacco Screening.on 023 Fall risk assessment a) No falls within the last year -[facility] [address] DO Work Phone: Tobacco use status [facility] a) Yes [facility] [address] DO Work Phone: Tobacco Screening. Yes [facility] [address] DO Work Phone: IntraOperative Documentson 0 01-13-2023 IntraOperative Documents [id number]#1.00CD:127 Normal [facility] Consent for Procedure/Surger yon 01-07-2023 Consent for Procedure/Surgery [id number]#1.00CD:127 Normal [facility] IntraOperative Documentson 0 01-07-2023 IntraOperative Documents [id number]#1.00CD:127 Normal [facility] Consent for Treatmenton 080 Consent for Treatment [id number]#1.00CD:127 Normal [facility] UroVysion Fish and Urine Cyt o ([facility])on 12-17-2022 UVFISH & UC Diagnosis Info Invalid Interpretation Code [facility] Comment on above: Result Comment: A:Ur [...] correlated with cytology and cystoscopy results.* CPT 97165, 88341. Microscopic Notes - Microscopic Notes - Abnormal cells 9p21 deletions: Abnormal cells aneploid events: Total cells analyzed: 101 Hematuria: Gross Description Site ID:A color No Color fixative Alcohol Received 60 mls of clear no color fluid with the patient's name and, Urine on the vial. Electronically signed by : on: 12/17/2022 09:12:29 Performed By: #### 1 [id number] ####[facility] [address] [place] [address] Urology Office/Clinic Noteon 12-16-2022 Urology Office/Clinic Note [...] Retention of urine, unspecified) Pt presented to [facility] ER on 09/15/22 due to catheter [...] [facility] [address], [place] [address]- Additional Instructions: Follow up after urodynamics for [...] emphysema Dem (more content not included)... Normal [facility] Comment on above: Result Comment: Elec tronically Signed By: Dana Rivas\.gonsalo\Date and Time Signed: 12/16/22 11:30 EDT Consent for Procedure/Surger yon 12-11-2022 Consent for Procedure/Surgery [id number]#1.00CD:127 Normal [facility] Ambulatory Visit Summaryon 0 12-10-2022 Ambulatory [...] Where: [facility] [address] [place] [address]- Medications What How Much When Instructions Unchanged [...] with r (more content not included)... Normal [facility] Patient Educationon 12-11-19 Patient Education Oncology [...] if anything looks unusual. Men with a sxxstx-swhr-utymsl risk for skin cancer may want to see a slunk skinner (division toll wire chief) for an annual body check. What are the benefits of screening? Cancer screening is done to look for cancer in the very early stages, before it spreads and becomes harder to treat and before you would start to notice symptoms. Finding cancer early improves the chances of successful treatment. It ma (more content not included)... Normal [facility] UroVysion Fish and Urine Cyt o ([facility])on 12-10-2022 [facility] Method of Extraction Bladder Wash Normal [facility] Comment on above: Performed By: #### 1 [id number] ####[facility] [address] [place] [address] [facility] Number of Jars 1 Invalid Interpretation Code [facility] Comment on above: Performed By: #### 1 [id number] ####[facility] [address] [place] [address] [facility] Specimen Urine Normal [facility] Comment on above: Performed By: #### 1 [id number] ####[facility] [address] [place] [address] [facility] Type of Service Technical Only Normal [facility] Comment on above: Performed By: #### 1 [id number] ####[facility] [address] [place] [address] Urology Office/Clinic Noteon 09-19-2022 Urology Office/Clinic Note [...] urothelial carcinoma, low grade. Pt presented to [facility] ER on 09/15/22 due to catheter [...] order Local anesthesia. Prophy abx sent to [facility] [place]. 2. 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 Pt presented to [facility] ER on 09/15/22 due to catheter [...] [facility] [address], [place] [address]- Additional Instructions: schedule urocuff, 3 mos cysto/bt [...] bladder tumor ( (more content not included)... [facility] Comment on above: Result Comment: Elec [...] 10:00 AM EDT Where: [facility] CULTURE URINEon 09-18-2022 CULTURE URINE Isolate 1 Pseudomonas aeruginosa >100,000 cfu/mL of ORGANISM 1 Pseudomonas aeruginosa ANTIBIOTIC M.I.C RX STATUS Piperacillin/Tazobactam <=4 S F Ceftazidime <=1 S F Imipenem 2 S F Amikacin <=2 S F Gentamicin 2 S F Tobramycin <=1 S F Ciprofloxacin <=0.25 S F Levofloxacin <=0.12 S F Normal [facility] Comment on above: Performed By: #### U RTPCR #### [facility] [address] [address] [address] Karen Pierce Patient Educationon 09-19-19 23 [...] Follow these instructions at home: ? Take yave-zyx-aqjvxsy and prescription medicines only as told by [...] important. Where to find more information ? [place] [employer] Society (ACS): cancer.org ? National Cancer Ismay (NCI): cancer.gov Contact a health care provider [...] have wi (more content not included)... Normal [facility] CALCULI, URINARYon 3 2,8 Dihydroxyadenine Normal [facility] Comment on above: Performed By: #### U A #### [facility] [address] [place] [address] Dr. Karen Pierce Ammonium Acid Urate Normal [facility] Comment on above: Performed By: #### U A #### [facility] [address] [place] [address] Dr. Karen Pierce Bilirubin Ql (U) Normal [facility] Comment on above: Performed By: #### U A #### [facility] [address] [address] [address] Karen Pierce Ca Oxalate Dihydrate Normal [facility] Comment on above: Performed By: #### U A #### [facility] [address] [place] [address] Dr. Karen Pierce CaHPO4 (Brushite) Normal [facility] Comment on above: Performed By: #### U A #### [facility] [address] [address] [address] Karen Pierce Calcium Bilirubinate Normal [facility] Comment on above: Performed By: #### U A #### [facility] [address] [address] [address] Karen Pierce Calcium Carbonate Normal [facility] Comment on above: Performed By: #### U A #### [facility] [address] [place] [address] Dr. Karen Pierce Calcium Oxalate Monohydrate 100 % Normal [facility] Comment on above: Performed By: #### U A #### [facility] [address] [address] [address] Karen Pierce Calcium Palmitate [facility] Comment on above: Performed By: #### U A #### [facility] [address] [address] [address] Karen Pierce Calcium Phosphate [facility] Comment on above: Performed By: #### U A #### [facility] [address] [address] [address] Karen Pierce Calcium Stearate [facility] Comment on above: Performed By: #### U A #### [facility] [address] [address] [address] Karen Pierce Carbonate Apatite [facility] Comment on above: Performed By: #### U A #### [facility] [address] [place] [address] Dr. Karen Pierce Cellular Material [facility] Comment on above: Performed By: #### U A #### [facility] [address] [address] [address] Karen Pierce Cholesterol [facility] Comment on above: Performed By: #### U A #### [facility] [address] [address] [address] Karen Pierce Color (U) Brown [facility] Comment on above: Performed By: #### U A #### [facility] [address] [place] [address] Dr. Karen Pierce Comment [facility] Comment on above: Performed By: #### U A #### [facility] [address] [place] [address] Dr. Karen Pierce Comment: Comment Normal [facility] Comment on above: Result Comment: Phys carmelo questions regarding Calculi Analysis contact [facility] at: [phone]. Performed By: #### U A #### [facility] [address] [place] [address] Dr. Karen Pierce Composition Comment [facility] Comment on above: Result Comment: Perc entage (Represents the % composition) Performed By: #### U A #### [facility] [address] [place] [address] Dr. Karen Pierce Cystine Normal [facility] Comment on above: Performed By: #### U A #### [facility] [address] [place] [address] Dr. Karen Pierce Disclaimer: Comment Normal [facility] Comment on above: Result Comment: This test was developed and its performance characteristics determined by [facility]. It has not been cleared or approved by the Food and Drug Administration. Performed By: #### U A #### [facility] [address] [place] [address] Dr. Karen Pierce Dried Blood [facility] Comment on above: Performed By: #### U A #### [facility] [address] [place] [address] Dr. Karen Pierce Drug or Metabolite Normal [facility] Comment on above: Performed By: #### U A #### [facility] [address] [place] [address] Dr. Karen Pierce Hydroxyapatite [facility] Comment on above: Performed By: #### U A #### [facility] [address] [place] [address] Dr. Karen Pierce Mg NH4 PO4 (Struvite) [facility] Comment on above: Performed By: #### U A #### [facility] [address] [place] [address] Dr. Karen Pierce MgHPO4 (Newberyite) [facility] Comment on above: Performed By: #### U A #### [facility] [address] [place] [address] Dr. Karen Pierce Other component(s) Normal [facility] Comment on above: Performed By: #### U A #### [facility] [address] [place] [address] Dr. Karen Pierce PDF . Normal [facility] Comment on above: Performed By: #### U A #### [facility] [address] [place] [address] Dr. Karen Pierce Photo Comment Normal [facility] Comment on above: Result Comment: Phot ograph will follow under a separate cover Performed By: #### U A #### [facility] [address] [address] [address] Karen Pierce Please note: Comment Normal [facility] Comment on above: Result Comment: Calc shirley report will follow via computer, mail or health and physical education teacher delivery. Performed By: #### U A #### [facility] [address] [address] [address] Karen Pierce Size 5x5 Normal [facility] Comment on above: Result Comment: Mult iple pieces received. Dimensions of the largest piece reported. Performed By: #### U A #### [facility] [address] [address] [address] Karen Pierce Sodium Acid Urate [facility] Comment on above: Performed By: #### U A #### [facility] [address] [place] [address] Dr. Karen Pierce Source Comment [facility] Comment on above: Result Comment: Urin evelin Bladder Performed By: #### U A #### [facility] [address] [address] [address] Karen Pierce Triamterene [facility] Comment on above: Performed By: #### U A #### [facility] [address] [address] [address] Karen Pierce Uric Acid [facility] Comment on above: Performed By: #### U A #### [facility] [address] [address] [address] Karen Pierce Uric Acid Dihydrate [facility] Comment on above: Performed By: #### U A #### [facility] [address] [address] [address] Karen Pierce Weight 158 mg [facility] Comment on above: Performed By: #### U A #### [facility] [address] [address] [address] Karen Pierce Xanthine [facility] Comment on above: Performed By: #### U A #### [facility] [address] [address] [address] Karen Pierce Pathology Noteon 09-17-2022 Pathology Note [id number]#1.00CD:127 Normal [facility] ER URINE PROFILEon 3 Bilirubin Ql (U) Negative Normal NEGATIVE [facility] Comment on above: Performed By: #### U MICRO, ERUR #### [facility] [address] [place] [address] Dr. Karen Pierce Clarity (U) CLEAR Normal CLEAR [facility] Comment on above: Performed By: #### U MICRO, ERUR #### [facility] [address] [place] [address] Dr. Karen Pierce Color (U) YELLOW Normal YELLOW [facility] Comment on above: Performed By: #### U MICRO, ERUR #### [facility] [address] [place] [address] Dr. Karen Pierce ERUAHD A micrscopic examina tion will be performed if indicated. Normal [facility] Comment on above: Performed By: #### U MICRO, ERUR #### [facility] [address] [place] [address] Dr. Karen Pierce Glucose Ql (U) Negative Normal NEGATIVE [facility] Comment on above: Performed By: #### U MICRO, ERUR #### [facility] [address] [place] [address] Dr. Karen Pierce Hemoglobin Ql (U) LARGE Abnormal NEGATIVE [facility] Comment on above: Performed By: #### U MICRO, ERUR #### [facility] [address] [address] [address] Karen Pierce Ketones Ql (U) Negative Normal NEGATIVE [facility] Comment on above: Performed By: #### U MICRO, ERUR #### [facility] [address] [address] [address] Karen Pierce LEUKOCYTES LARGE Abnormal NEGATIVE [facility] Comment on above: Performed By: #### U MICRO, ERUR #### [facility] [address] [place] [address] Dr. Karen Pierce Nitrite Ql (U) Positive Abnormal NEGATIVE [facility] Comment on above: Performed By: #### U MICRO, ERUR #### [facility] [address] [place] [address] Dr. Karen Pierce pH (U) 5.5 [pH] Normal 5-9 [facility] Comment on above: Performed By: #### U MICRO, ERUR #### [facility] [address] [place] [address] Dr. Karen Pierce Protein (U) [Mass/Vol] 100 mg/dL Abnormal NEGAT RAJI/ TRACE [facility] Comment on above: Performed By: #### U MICRO, ERUR #### [facility] [address] [place] [address] Dr. Karne Pierce SPEC GRAVITY 1.020 Normal 1.005-<=1. 025 [facility] Comment on above: Performed By: #### U MICRO, ERUR #### [facility] [address] [place] [address] Dr. Karen Pierce UR MICRO IND INDICATED Normal [facility] Comment on above: Performed By: #### U MICRO, ERUR #### [facility] [address] [place] [address] Dr. Karen Pierce Urobilinogen Qn (U) 1.0 {Tonio'U}/dL Normal 0.2 - 1. 0 [facility] Comment on above: Performed By: #### U MICRO, ERUR #### [facility] [address] [place] [address] Dr. Karen Pierce URINE MICROSCOPIC ONLYon BACTERIA SMALL Abnormal NONE SEEN [facility] Comment on above: Performed By: #### U MICRO, ERUR #### [facility] [address] [place] [address] Dr. Karen Pierce Bacteria identified Cx Nom (U) INDICATED Normal [facility] Comment on above: Performed By: #### U MICRO, ERUR #### [facility] [address] [place] [address] Dr. Karen Pierce CAST NONE SEEN Normal NONE SEEN [facility] Comment on above: Performed By: #### U MICRO, ERUR #### [facility] [address] [address] [address] Karen Pierce Crystals LM Nom (Urine sed) NONE SEEN Normal NONE SEEN [facility] Comment on above: Performed By: #### U MICRO, ERUR #### [facility] [address] [place] [address] Dr. Karen Pierce Epithelial cells LM Ql (Urine sed) NONE SEEN Normal NONE SEEN /RARE [facility] Comment on above: Performed By: #### U MICRO, ERUR #### [facility] [address] [place] [address] Dr. Karen Pierce MUCOUS NONE SEEN Normal NONE SEEN [facility] Comment on above: Performed By: #### U MICRO, ERUR #### [facility] [address] [place] [address] Dr. Karen Pierce RBC (U) [#/Vol] /uL Abnormal 0-2 [facility] Comment on above: Performed By: #### U MICRO, ERUR #### [facility] [address] [place] [address] Dr. Karen Pierce WBC 50-75 Abnormal NONE SEEN [facility] Comment on above: Performed By: #### U MICRO, ERUR #### [facility] [address] [place] [address] Dr. Karen Pierec Operative Reporton Operative Report [id number]#1.00CD:127 Normal [facility] Consultation Noteon 09-10-19 23 Consultation Note [id number]#1.00CD:127 Normal [facility] Consultation Note [id number]#1.00CD:127 Normal [facility] Consultation Note [id number]#1.00CD:127 Normal [facility] Lab Reportson 09-09-2022 Lab Reports [id number]#1.00CD:127 Normal [facility] RAD - MISCon 09-09-2022 RAD - MISC [id number]:127 Normal [facility] PTH INTACTon 09-05-2022 PTH, Intact 38 pg/mL Normal 15-65 [facility] Comment on above: Performed By: #### P THINT #### [facility] [address] [place] [address] Dr. Karen Pierce FERRITINon 09-04-2022 Ferritin [Mass/Vol] 49.0 ng/mL Normal 26.0-388.0 [facility] Comment on above: Performed By: #### U RTPCR #### [facility] [address] [place] [address] Dr. Karen Pierce IRON AND TIBCon 09-04-2022 % SATURATION 10.3 % Normal [facility] Comment on above: Performed By: #### U RTPCR #### [facility] [address] [place] [address] Dr. Karen Pierce Iron [Mass/Vol] 33.0 ug/dL Critically low 65.0-175.0 [facility] Comment on above: Performed By: #### U RTPCR #### [facility] [address] [place] [address] Dr. Karen Pierce TIBC DIRECT 319.0 ug/dL Normal 250.0-450. 0 [facility] Comment on above: Performed By: #### U RTPCR #### [facility] [address] [place] [address] Dr. Karen Pierce UA RANDOMon 09-04-2022 Bilirubin Ql (U) Negative Normal NEGATIVE [facility] Comment on above: Performed By: #### U A #### [facility] [address] [place] [address] Dr. Karen Pierce Clarity (U) CLEAR Normal CLEAR [facility] Comment on above: Performed By: #### U A #### [facility] [address] [place] [address] Dr. Karen Pierce Color (U) LT. YELLOW Normal YELLOW [facility] Comment on above: Performed By: #### U A #### [facility] [address] [place] [address] Dr. Karen Pierce Glucose Ql (U) Negative Normal NEGATIVE [facility] Comment on above: Performed By: #### U A #### [facility] [address] [place] [address] Dr. Karen Pierce Hemoglobin Ql (U) MODERATE Abnormal NEGATIVE [facility] Comment on above: Performed By: #### U A #### [facility] [address] [place] [address] Dr. Karen Pierce Ketones Ql (U) Negative Normal NEGATIVE [facility] Comment on above: Performed By: #### U A #### [facility] [address] [place] [address] Dr. Karen Pierce LEUKOCYTES LARGE Abnormal NEGATIVE [facility] Comment on above: Performed By: #### U A #### [facility] [address] [place] [address] Dr. Karen Pierce Nitrite Ql (U) Positive Abnormal NEGATIVE [facility] Comment on above: Performed By: #### U A #### [facility] [address] [place] [address] Dr. Karen Pierce pH (U) 6.5 [pH] Normal 5-9 [facility] Comment on above: Performed By: #### U A #### [facility] [address] [place] [address] Dr. Karen Pierce SPEC GRAVITY 1.015 Normal 1.005-<=1. 025 [facility] Comment on above: Performed By: #### U A #### [facility] [address] [place] [address] Dr. Karen Pierce UA PROTEIN 30 mg/dl Abnormal NEGATIVE/ TRACE [facility] Comment on above: Performed By: #### U A #### [facility] [address] [place] [address] Dr. Karen Pierce Urobilinogen Qn (U) 0.2 {Tonio'U}/dL Normal 0.2 - 1. 0 [facility] Comment on above: Performed By: #### U A #### [facility] [address] [place] [address] Dr. Karen Pierce URINE T PROTEIN CREAT RATIOo n 09-04-2022 Protein (U) [Mass/Vol] 65.2 mg/dL Critically high <=12.0 [facility] Comment on above: Performed By: #### U RTPCR #### [facility] [address] [place] [address] Dr. Karen Pierce UR PROT CREAT RAT 0.76 Normal [facility] Comment on above: Performed By: #### U RTPCR #### [facility] [address] [place] [address] Dr. Karen Pierce URINE CREAT 85.95 mg/dL Normal 20.00-300. 00 [facility] Comment on above: Performed By: #### U RTPCR #### [facility] [address] [place] [address] Dr. Karen Pierce VIT B12 AND FOLATEon 023 Cobalamin (Vitamin B12) [Mass/Vol] 279.0 pg/mL Normal 193.0-986. 0 [facility] Comment on above: Performed By: #### U RTPCR #### [facility] [address] [place] [address] Dr. Karen Pierec FOLATE 17.80 ng/mL Normal 8.60-58.90 [facility] Comment on above: Performed By: #### U RTPCR #### [facility] [address] [place] [address] Dr. Karen Pierce VITAMIN D 25 OHon 09-04-2022 VIT D 25-OH 29.9 ng/mL Normal [facility] Comment on above: Performed By: #### U RTPCR #### [facility] [address] [place] [address] Dr. Karen Pierce VIT D RANGES SEE BELOW Normal [facility] Comment on above: Result Comment: <20 ng/mL Vit D deficient 20 - <30 ng/mL Vit D insufficient 30 - 100 ng/mL Vit D sufficient >100 ng/mL Potential Toxicity Performed By: #### U RTPCR #### [facility] [address] [address] [address] Karen Pierce CBC AUTO DIFFon 09-02-2022 BASO # 0.1 103/ul Normal 0.0-0.1 [facility] Comment on above: Performed By: #### C BC #### [facility] [address] [address] [address] Karen Pierce Basophils/100 WBC (Bld) 0.7 % Normal 0.2-2.0 [facility] Comment on above: Performed By: #### C BC #### [facility] [address] [place] [address] Dr. Karen Pierce EO # 0.2 103/ul Normal 0.0-0.7 [facility] Comment on above: Performed By: #### C BC #### [facility] [address] [place] [address] Dr. Karen Pierce Eosinophils/100 WBC (Bld) 2.6 % Normal 0.9-7.0 [facility] Comment on above: Performed By: #### C BC #### [facility] [address] [place] [address] Dr. Karen Pierce Erythrocyte distribution width (RBC) [Ratio] 13.8 % Normal 11.0-15.0 [facility] Comment on above: Performed By: #### C BC #### [facility] [address] [place] [address] Dr. Karen Pierce Hematocrit (Bld) [Volume fraction] 38.9 % Critically low 42.0-54.0 [facility] Comment on above: Performed By: #### C BC #### [facility] [address] [place] [address] Dr. Karen Pierce Hemoglobin (Bld) [Mass/Vol] 12.3 g/dL Critically low 14.0-18.0 [facility] Comment on above: Performed By: #### C BC #### [facility] [address] [place] [address] Dr. Karen Pierce IG # 0.01 10e3/ul Normal 0.00-0.03 [facility] Comment on above: Performed By: #### C BC #### [facility] [address] [place] [address] Dr. Karen Pierce IG % 0.1 % Normal 0.0-0.5 [facility] Comment on above: Performed By: #### C BC #### [facility] [address] [place] [address] Dr. Karen Pierce LYMPH # 1.9 103/ul Normal 1.2-3.8 [facility] Comment on above: Performed By: #### C BC #### [facility] [address] [place] [address] Dr. Karen Pierce Lymphocytes/100 WBC (Bld) 27.0 % Normal 20.5-60.0 [facility] Comment on above: Performed By: #### C BC #### [facility] [address] [place] [address] Dr. Karen Pierce MANUAL DIFF REQ NO Normal [facility] Comment on above: Performed By: #### C BC #### [facility] [address] [place] [address] Dr. Karen Pierce MCH (RBC) [Entitic mass] 27.8 pg Normal 25.9-34.0 [facility] Comment on above: Performed By: #### C BC #### [facility] [address] [place] [address] Dr. Karen Pierce MCHC (RBC) [Mass/Vol] 31.6 g/dL Normal 29.9-35.2 [facility] Comment on above: Performed By: #### C BC #### [facility] [address] [place] [address] Dr. Karen Pierce MCV (RBC) [Entitic vol] 87.8 fL Normal 80.0-94.0 [facility] Comment on above: Performed By: #### C BC #### [facility] [address] [place] [address] Dr. Karen Pierce MONO # 0.6 103/ul Normal 0.3-0.8 [facility] Comment on above: Performed By: #### C BC #### [facility] [address] [place] [address] Dr. Karen Pierce Monocytes/100 WBC (Bld) 8.8 % Normal 1.7-12.0 [facility] Comment on above: Performed By: #### C BC #### [facility] [address] [place] [address] Dr. Karen Pierce NEUT # 4.4 103/ul Normal 1.4-6.5 [facility] Comment on above: Performed By: #### C BC #### [facility] [address] [place] [address] Dr. Karen Pierce Neutrophils/100 WBC (Bld) 60.8 % Normal 43.0-75.0 [facility] Comment on above: Performed By: #### C BC #### [facility] [address] [place] [address] Dr. Karen Pierce Platelet mean volume (Bld) [Entitic vol] 9.9 fL Normal 9.5-13.5 [facility] Comment on above: Performed By: #### C BC #### [facility] [address] [place] [address] Dr. Karen Pierce PLT 181 103/ul Normal 150-450 [facility] Comment on above: Performed By: #### C BC #### [facility] [address] [place] [address] Dr. Karen Pierce RBC 4.43 106/ul Critically low 4.70-6.10 [facility] Comment on above: Performed By: #### C BC #### [facility] [address] [place] [address] Dr. Karen Pierce WBC 7.2 103/ul Normal 4.0-11.0 [facility] Comment on above: Performed By: #### C BC #### [facility] [address] [place] [address] Dr. Karen Pierce MAGNESIUMon 09-02-2022 Magnesium [Mass/Vol] 2.2 mg/dL Normal 1.8-2.4 [facility] Comment on above: Performed By: #### U A #### [facility] [address] [place] [address] Dr. Karen Pierce PHOSPHORUSon 09-02-2022 Phosphate [Mass/Vol] 2.9 mg/dL Normal 2.6-4.7 [facility] Comment on above: Performed By: #### U A #### [facility] [address] [place] [address] Dr. Karen Pierce PROF 14(COMP METB)on 023 Albumin [Mass/Vol] 3.5 g/dL Normal 3.4-5.0 [facility] Comment on above: Performed By: #### P THINT #### [facility] [address] [place] [address] Dr. Karen Pierce Albumin/Globulin [Mass ratio] 1.0 {ratio} Normal [facility] Comment on above: Performed By: #### P THINT #### [facility] [address] [place] [address] Dr. Karen Pierce ALP [Catalytic activity/Vol] 86 U/L Normal 46-116 [facility] Comment on above: Performed By: #### P THINT #### [facility] [address] [place] [address] Dr. Karen Pierce ALT [Catalytic activity/Vol] 17 U/L Normal 16-63 [facility] Comment on above: Performed By: #### P THINT #### [facility] [address] [place] [address] Dr. Karen Pierce Anion gap [Moles/Vol] 13.0 mmol/L Normal [facility] Comment on above: Performed By: #### P THINT #### [facility] [address] [place] [address] Dr. Karen Pierce AST [Catalytic activity/Vol] 14 U/L Critically low 15-37 [facility] Comment on above: Performed By: #### P THINT #### [facility] [address] [place] [address] Dr. Karen Pierce Bilirubin [Mass/Vol] 0.3 mg/dL Normal 0.2-1.0 [facility] Comment on above: Performed By: #### P THINT #### [facility] [address] [address] [address] Karen Pierce CO2 [Moles/Vol] 27.6 mmol/L Normal 21.0-32.0 [facility] Comment on above: Performed By: #### P THINT #### [facility] [address] [address] [address] Karen Pierce Creatinine [Mass/Vol] 1.48 mg/dL Critically high 0.70-1.30 [facility] Comment on above: Performed By: #### P THINT #### [facility] [address] [address] [address] Karen Pierce EGFR-AF SAUDI ARABIAN 56 mL/min/1.73m2 Critically low >=60 [facility] Comment on above: Performed By: #### P THINT #### [facility] [address] [place] [address] Dr. Karen Pierce EGFR-NON AF SAUDI ARABIAN 46 mL/min/1.73m2 Critically low >=60 [facility] Comment on above: Performed By: #### P THINT #### [facility] [address] [address] [address] Karen Pierce Globulin (S) [Mass/Vol] 3.6 g/dL Normal [facility] Comment on above: Performed By: #### P THINT #### [facility] [address] [place] [address] Dr. Karen Pierce Glucose [Mass/Vol] 105 mg/dL Normal 74-106 [facility] Comment on above: Performed By: #### P THINT #### [facility] [address] [place] [address] Dr. Karen Pierce Protein [Mass/Vol] 7.1 g/dL Normal 6.4-8.2 [facility] Comment on above: Performed By: #### P THINT #### [facility] [address] [place] [address] Dr. Karen Pierce Sodium [Moles/Vol] 142 mmol/L Normal 136-145 [facility] Comment on above: Performed By: #### P THINT #### [facility] [address] [place] [address] Dr. Karen Pierce Urea nitrogen/Creatinine [Mass ratio] 16.2 mg/mg Normal [facility] Comment on above: Performed By: #### P THINT #### [facility] [address] [place] [address] Dr. Karen Pierce PROF CHEM 8 (BAS METB)on Anion gap [Moles/Vol] 11.1 mmol/L Normal [facility] Comment on above: Performed By: #### U A #### [facility] [address] [place] [address] Dr. Karen Pierce Calcium [Mass/Vol] 8.7 mg/dL Normal 8.5-10.1 [facility] Comment on above: Performed By: #### U A #### [facility] [address] [place] [address] Dr. Karen Pierce Performed By: #### P THINT #### [facility] [address] [place] [address] Dr. Karen Pierce Chloride [Moles/Vol] 106 mmol/L Normal 98-107 [facility] Comment on above: Performed By: #### U A #### [facility] [address] [place] [address] Dr. Karen Pierce Performed By: #### P THINT #### [facility] [address] [place] [address] Dr. Karen Pierce CO2 [Moles/Vol] 28.5 mmol/L Normal 21.0-32.0 [facility] Comment on above: Performed By: #### U A #### [facility] [address] [place] [address] Dr. Karen Pierce Creatinine [Mass/Vol] 1.44 mg/dL Critically high 0.70-1.30 [facility] Comment on above: Performed By: #### U A #### [facility] [address] [place] [address] Dr. Karen Pierce EGFR-AF SAUDI ARABIAN 58 mL/min/1.73m2 Critically low >=60 [facility] Comment on above: Performed By: #### U A #### [facility] [address] [address] [address] Karen Pierce EGFR-NON AF SAUDI ARABIAN 47 mL/min/1.73m2 Critically low >=60 [facility] Comment on above: Performed By: #### U A #### [facility] [address] [address] [address] Karen Pierce Glucose [Mass/Vol] 104 mg/dL Normal 74-106 [facility] Comment on above: Performed By: #### U A #### [facility] [address] [place] [address] Dr. Karen Pierce Potassium [Moles/Vol] 4.6 mmol/L Normal 3.5-5.1 [facility] Comment on above: Performed By: #### U A #### [facility] [address] [place] [address] Dr. Karen Pierce Performed By: #### P THINT #### [facility] [address] [place] [address] Dr. Karen Pierce Sodium [Moles/Vol] 141 mmol/L Normal 136-145 [facility] Comment on above: Performed By: #### U A #### [facility] [address] [place] [address] Dr. Karen Pierce Urea nitrogen [Mass/Vol] 24.0 mg/dL Critically high 7.0-18.0 [facility] Comment on above: Performed By: #### U A #### [facility] [address] [place] [address] Dr. Karen Pierce Performed By: #### P THINT #### [facility] [address] [place] [address] Dr. Karen Pierce Urea nitrogen/Creatinine [Mass ratio] 16.7 mg/mg Normal [facility] Comment on above: Performed By: #### U A #### [facility] [address] [place] [address] Dr. Karen Pierce PROTIMEon 09-02-2022 INR Coag (PPP) [Relative time] 1.01 {INR} Normal [facility] Comment on above: Performed By: #### P TT, PT #### [facility] [address] [place] [address] Dr. Karen Pierce INR GUIDELINES SEE BELOW Normal [facility] Comment on above: Result Comment: EMY RED INR: 2.0 - 3.0 CONDITIONS NOT LISTED BELOW 2.5 - 3.5 FOR PROSTHETIC HEART VALVE REPLACEMENT 2.5 - 3.5 RECURRENT THROMBOSIS Performed By: #### P TT, PT #### [facility] [address] [place] [address] Dr. Karen Pierce PT Coag (PPP) [Time] 10.7 s Normal 9.0-11.6 [facility] Comment on above: Performed By: #### P TT, PT #### [facility] [address] [place] [address] Dr. Karen Pierce PTTon 09-02-2022 aPTT Coag (Bld) [Time] 28.2 s Normal 22.3-36.2 [facility] Comment on above: Performed By: #### P TT, PT #### [facility] [address] [place] [address] Dr. Karen Pierce URIC ACID SERUMon 09-02-2022 Urate [Mass/Vol] 4.8 mg/dL Normal 3.5-7.2 [facility] Comment on above: Performed By: #### P THINT #### [facility] [address] [place] [address] Dr. Karen Pierce Consent for Procedure/Surger yon 08-27-2022 Consent for Procedure/Surgery [id number]:127 Normal [facility] Formson 08-27-2022 Forms [id number]:127 Normal [facility] CT angio abdomen pelvison [place] [address] CT Scan Report Signed Patient: Alex Anderson MR#: [id number] 36 : 1945 Acct:[id number] Age/Sex: 76 / M ADM Date: 08/16/22 Loc: CT Room: Type: [facility] Attending Dr: Margarito Valentine MD Copies to: [...] Corky Max M.D.08/16/2022 12:04 PM Dictation Location: [address] [place] [address] Transcribed By: LIONEL 08/16/22 1204 Dictated By: Corky Max II, MD 08/16/22 1154 Signed By: 08/16/22 1204 [facility] Creatinine (Bld) [Mass/Vol]O rdered By: Margarito Valentine on 08-16-2022 Creatinine [Mass/Vol] 1.5 mg/dL 0.6-1.3 [facility] Comment on above: ER/ESD physician is notified/shown all ISTAT results.Critical values may be confirmed by laboratory testing ifdeemed necessary by ER attending doctor. UroVys[facility] Fish and Urine Cyt o ([facility])on 08-07-2022 [facility] Diagnosis Info Invalid Interpretation Code [facility] Comment on above: Result Comment: A:Ur [...] on: 08/07/2022 17:56:58 Performed By: #### 1 [id number] ####[facility] [id number] Consent for Procedure/Surger yon 07-31-2022 Consent for Procedure/Surgery [id number]:127 Normal [facility] Patient Educationon 08-01-19 Patient Education Oncology Transurethral [...] including vitamins, herbs, eye drops, creams, and bvvo-jnp-rusvkqc medicines. ? Any problems you or family [...] tells you to take them. ? Taking xdep-zvc-hrigpqg medicines, vitamins, herbs, and supplements. Tests You [...] walk around (more content not included)... Normal [facility] UroVysion Fish and Urine Cyt o ([facility])on 07-31-2022 [facility] Method of Extraction Bladder Wash Normal [facility] Comment on above: Performed By: #### 1 [id number] ####[facility] [address] [place] [address] [facility] Number of Jars 1 Invalid Interpretation Code [facility] Comment on above: Performed By: #### 1 [id number] ####[facility] [address] [place] [address] [facility] Specimen Bladder Wash Normal [facility] Comment on above: Performed By: #### 1 [id number] ####[facility] [address] [place] [address] [facility] Type of Service Technical Only Normal [facility] Comment on above: Performed By: #### 1 [id number] ####[facility] [address] [place] [address] Urology Office/Clinic Noteon 07-31-2022 Urology Office/Clinic Note [...] significant proteinuria, and has significant drop of [employer] after zapien insertion (1.69 on 05/21) 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 No recent labs (since d/c from hospital). 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 Ureters insert in atypical locations. 5. Renal lesion (N28.9: Disorder of k (more content not included)... Normal [facility] Comment on above: Result Comment: Elec tronically Signed By: ARLENE CASILLAS, Katia Fall.br\Date and Time Signed: 07/31/22 08:07 EST Creatinine (Bld) [Mass/Vol]O rdered By: Heather Schwab on 07-24-2022 Creatinine [Mass/Vol] 1.6 mg/dL 0.6-1.3 [facility] Comment on above: ER/ESD physician is notified/shown all ISTAT results.Critical values may be confirmed by laboratory testing ifdeemed necessary by ER attending doctor. ISTAT XRay CREon 07-24-2022 Creatinine [Mass/Vol] 1.6 mg/dL High 0.6-1.3 [facility] Comment on above: Result Comment: ER/E SD physician is notified/shown all ISTAT results. Critical values may be confirmed by laboratory testing if deemed necessary by ER attending doctor. Performed By: #### I SCRE #### [address] Point of Care testing , ISTAT GFR ( 51 [facility] Comment on above: Result Comment: GFR estimated reference range: According to KDOQI guidelines, <60 ml/min/1.73m2 is sufficient to diagnose a patient with chronic kidney disease. PERFORMED BY: [place] [address] PATHOLOGIST JEWEL HOLE DRILLER OREN OWEN M.D. Performed By: #### I SCRE #### [address] Point of Care testing , ISTAT GFR (Non- Am 42 [facility] Comment on above: Performed By: #### I SCRE #### [address] Point of Care testing , No Panel InformationOrdered By: Heather Schwab on 07-24-2022 POC Estimated GFR [address] [place] [address] Comment on above: GFR estimated refere nce range: According to KDOQI guidelines, <60 ml/min/1.73m2 is sufficient to diagnose a patient with chronic kidney disease. POC Estimated GFR Non- Amer 42 [facility] Blood activated clotting lacho e by coagulation assayOrdered By: Margarito Valentine on 07-02-2022 ACT Coag (Bld) 215 s 90-139 [facility] Comment on above: Reference Range: 90- 139 (Non-heparinized) Basophils Auto (Bld) [#/Vol] Ordered By: Margarito Valentine on 06-21-2022 Basophils (Bld) [#/Vol] 0.1 10*3/uL 0.0-0.2 [facility] Basophils/100 WBC Auto (Bld) Ordered By: Margarito Valentine on 06-21-2022 Basophils/100 WBC (Bld) 0.9 % . F [facility] Creatinine and Glomerular fi ltration rate.predicted panel (S/P/Bld)Ordered By: Margarito Valentine on 06-21-2022 Creatinine [Mass/Vol] 1.24 mg/dL 0.64-1.27 [facility] Eosinophils Auto (Bld) [#/Vo l]Ordered By: Margarito Valentine on 06-21-2022 Eosinophils (Bld) [#/Vol] 0.2 10*3/uL 0.0-0.45 [facility] Eosinophils/100 WBC Auto (Bl d)Ordered By: Margarito Valentine on 06-21-2022 Eosinophils/100 WBC (Bld) 2.5 % . [facility] Erythrocyte distribution wid th Auto (RBC) [Ratio]Ordered By: Margarito Valentine on 06-21-2022 Erythrocyte distribution width (RBC) [Ratio] 18.0 % 12.0-14.8 [facility] Estimated glomerular filtrat ion rate (GFR) non- AmericanOrdered By: Margarito Valentine on 06-21-2022 GFR/1.73 sq M.predicted among non-blacks MDRD (S/P/Bld) [Vol rate/Area] 56 mL/Min [facility] Hematocrit Auto (Bld) [Volum e fraction]Ordered By: Margarito Valentine on 06-21-2022 Hematocrit (Bld) [Volume fraction] 37.7 % 38.8-50.0 [facility] Hemoglobin [Mass/volume] in BloodOrdered By: Margarito Valentine on 06-21-2022 Hemoglobin (Bld) [Mass/Vol] 12.3 g/dL 13.0-17.0 [facility] Leukocytes [#/volume] correc phil for nucleated erythrocytes in Blood by Automated counOrdered By: Margarito Valentine on 06-21-2022 WBC corrected for nucl RBC Auto (Bld) [#/Vol] 7.1 10*3/uL 4.1-10.5 [facility] Lymphocytes Auto (Bld) [#/Vo l]Ordered By: Margarito Valentine on 06-21-2022 Lymphocytes (Bld) [#/Vol] 1.3 10*3/uL 1.00-4.8 [facility] Lymphocytes/100 WBC Auto (Bl d)Ordered By: Margarito Valentine on 06-21-2022 Lymphocytes/100 WBC (Bld) 18.7 % . [facility] MCH Auto (RBC) [Entitic mass ]Ordered By: Margarito Valentine on 06-21-2022 MCH (RBC) [Entitic mass] 28.2 pg 27.5-35.2 [facility] MCHC Auto (RBC) [Mass/Vol]Or dered By: Margarito Valentine on 06-21-2022 MCHC (RBC) [Mass/Vol] 32.6 g/dL 32.5-35.6 [facility] MCV Auto (RBC) [Entitic vol] Ordered By: Margarito Valentine on 06-21-2022 MCV (RBC) [Entitic vol] 86.5 fL 83.5-101 F [facility] Monocytes Auto (Bld) [#/Vol] Ordered By: Margarito Valentine on 06-21-2022 Monocytes (Bld) [#/Vol] 0.7 10*3/uL 0.0-0.8 [facility] Monocytes/100 WBC Auto (Bld) Ordered By: Margarito Valentine on 06-21-2022 Monocytes/100 WBC (Bld) 10.3 % . F [facility] Neutrophils Auto (Bld) [#/Vo l]Ordered By: Margarito Valentine on 06-21-2022 Neutrophils (Bld) [#/Vol] 4.8 10*3/uL 1.8-7.7 [facility] Neutrophils/100 WBC Auto (Bl d)Ordered By: Margarito Valentine on 06-21-2022 Neutrophils/100 WBC (Bld) 67.6 % . [facility] No Panel InformationOrdered By: Margarito Valentine on 06-21-2022 Estimated GFR () > 60 mL/Min [facility] Comment on above: GFR estimated refere nce range: According to KDOQI guidelines, <60 ml/min/1.73m2 is sufficient to diagnose a patient with chronic kidney disease. Pharmacy Creatinine Clearance (Chem N/A [facility] Nucleated erythrocytes [Pres ence] in Blood by Automated countOrdered By: Margarito Valentine on 06-21-2022 Nucleated RBC Auto Ql (Bld) 0.1 /100{WBC} 0-0.5 [facility] Platelet mean volume Auto (B ld) [Entitic vol]Ordered By: Margarito Valentine on 06-21-2022 Platelet mean volume (Bld) [Entitic vol] 8.2 fL 6.6-10.1 [facility] Platelets Auto (Bld) [#/Vol] Ordered By: Margarito Valentine on 06-21-2022 Platelets (Bld) [#/Vol] 149 10*3/uL 150-450 [facility] RBC Auto (Bld) [#/Vol]Ordere d By: Margarito Valentine on 06-21-2022 RBC (Bld) [#/Vol] 4.36 10*6/uL 3.90-5.60 [facility] Serum or plasma anion gap de terminationOrdered By: Margarito Valentine on 06-21-2022 Anion gap [Moles/Vol] 10.8 mmol/L 6.0-15.0 [facility] Serum or plasma calcium elan urement (mass/volume)Ordered By: Margarito Valentine on 06-21-2022 Calcium [Mass/Vol] 8.8 mg/dL 8.2-10.2 [facility] Serum or plasma chloride herb surement (moles/volume)Ordered By: Margarito Valentine on 06-21-2022 Chloride [Moles/Vol] 107 mmol/L 95-114 [facility] Serum or plasma glucose elan urement (mass/volume)Ordered By: Margarito Valentine on 06-21-2022 Glucose [Mass/Vol] 103 mg/dL 70-100 [facility] Comment on above: ADA recommended refe rence rangeRandom Glucose Reference Range is dependent on time and content of last meal. Glucose of more than 200 mg/dL in a nonstressed, ambulatory subject supports the diagnosis of Diabetes Mellitus. Serum or plasma potassium me asurement (moles/volume)Ordered By: Margarito Valentine on 06-21-2022 Potassium [Moles/Vol] 4.2 mmol/L 3.5-5.1 [facility] Serum or plasma sodium measu rement (moles/volume)Ordered By: Margarito Valentine on 06-21-2022 Sodium [Moles/Vol] 138 mmol/L 136-146 [facility] Serum or plasma total carbon dioxide measurement (moles/volume)Ordered By: Margarito Valentine on 06-21-2022 CO2 [Moles/Vol] 24.4 mmol/L 22.0-30.0 [facility] Serum or plasma urea nitroge n measurement (mass/volume)Ordered By: Margarito Valentine on 06-21-2022 Urea nitrogen [Mass/Vol] 18 mg/dL 02-15 [facility] WBC Auto (Bld) [#/Vol]Ordere d By: Margarito Valentine on 06-21-2022 WBC (Bld) [#/Vol] 7.1 10*3/uL 4.1-10.5 [facility] Office Visit (Cardiology)on 06-03-2022 Follow-up visit Diagnoses/Problems [...] Complaint ALEX ANDERSON is being seen for [facility]. 76-year-old white male who I saw [...] Signs Recorded: 03Jun2022 03:38PM Heart Rate71, Apical Teybofyt857, LUE, Sitting Juyllfkpv32, LUE, Sitting Height6 ft 2 in Clkntk272 lb BMI Zecodhlyvl87.45 kg/m2 BSA Calculated2.2 Tobacco Useb) No PHQ-2 [...] , regular (more content not included)... Normal uMentioned Tobacco Screening.on 023 Adult depression screening assessment No Ondeego 250 DO Work Phone: Fall risk assessment a) No falls within the last year [facility] DO Work Phone: Tobacco use status [facility] b) No [facility] [employer] 250 DO Work Phone: Basophils Auto (Bld) [#/Vol] Ordered By: Bernabe Cr on 05-22-2022 Basophils (Bld) [#/Vol] 0.1 10*3/uL 0.0-0.2 [facility] Basophils/100 WBC Auto (Bld) Ordered By: Bernabe Cr on 05-22-2022 Basophils/100 WBC (Bld) 1.2 % . F [facility] Creatinine and Glomerular fi ltration rate.predicted panel (S/P/Bld)Ordered By: Bernabe Cr on 05-22-2022 Creatinine [Mass/Vol] 1.78 mg/dL 0.64-1.27 [facility] Eosinophils Auto (Bld) [#/Vo l]Ordered By: Bernabe Cr on 05-22-2022 Eosinophils (Bld) [#/Vol] 0.3 10*3/uL 0.0-0.45 [facility] Eosinophils/100 WBC Auto (Bl d)Ordered By: Bernabe Cr on 05-22-2022 Eosinophils/100 WBC (Bld) 3.6 % . [facility] Erythrocyte distribution wid th Auto (RBC) [Ratio]Ordered By: Bernabe Cr on 05-22-2022 Erythrocyte distribution width (RBC) [Ratio] 15.3 % 12.0-14.8 [facility] Estimated glomerular filtrat ion rate (GFR) non- AmericanOrdered By: Bernabe Cr on 05-22-2022 GFR/1.73 sq M.predicted among non-blacks MDRD (S/P/Bld) [Vol rate/Area] 37 mL/Min [facility] Hematocrit Auto (Bld) [Volum e fraction]Ordered By: Bernabe Cr on 05-22-2022 Hematocrit (Bld) [Volume fraction] 36.2 % 38.8-50.0 [facility] Hemoglobin [Mass/volume] in BloodOrdered By: Bernabe Cr on 05-22-2022 Hemoglobin (Bld) [Mass/Vol] 11.7 g/dL 13.0-17.0 [facility] Leukocytes [#/volume] correc phil for nucleated erythrocytes in Blood by Automated counOrdered By: Bernabe Cr on 05-22-2022 WBC corrected for nucl RBC Auto (Bld) [#/Vol] 8.1 10*3/uL 4.1-10.5 [facility] Lymphocytes Auto (Bld) [#/Vo l]Ordered By: Bernabe Cr on 05-22-2022 Lymphocytes (Bld) [#/Vol] 1.4 10*3/uL 1.00-4.8 [facility] Lymphocytes/100 WBC Auto (Bl d)Ordered By: Bernabe Cr on 05-22-2022 Lymphocytes/100 WBC (Bld) 16.9 % . [facility] MCH Auto (RBC) [Entitic mass ]Ordered By: Bernabe Cr on 05-22-2022 MCH (RBC) [Entitic mass] 27.4 pg 27.5-35.2 [facility] MCHC Auto (RBC) [Mass/Vol]Or dered By: Bernabe Cr on 05-22-2022 MCHC (RBC) [Mass/Vol] 32.5 g/dL 32.5-35.6 [facility] MCV Auto (RBC) [Entitic vol] Ordered By: Bernabe Cr on 05-22-2022 MCV (RBC) [Entitic vol] 84.3 fL 83.5-101 F [facility] Monocytes Auto (Bld) [#/Vol] Ordered By: Bernabe Cr on 05-22-2022 Monocytes (Bld) [#/Vol] 0.8 10*3/uL 0.0-0.8 [facility] Monocytes/100 WBC Auto (Bld) Ordered By: Bernabe Cr on 05-22-2022 Monocytes/100 WBC (Bld) 10.1 % . [facility] Neutrophils Auto (Bld) [#/Vo l]Ordered By: Bernabe Cr on 05-22-2022 Neutrophils (Bld) [#/Vol] 5.6 10*3/uL 1.8-7.7 [facility] Neutrophils/100 WBC Auto (Bl d)Ordered By: Bernabe Cr on 05-22-2022 Neutrophils/100 WBC (Bld) 68.2 % . [facility] No Panel InformationOrdered By: Bernabe Cr on 05-22-2022 Estimated GFR () 45 mL/Min [facility] Comment on above: GFR estimated refere nce range: According to KDOQI guidelines, <60 ml/min/1.73m2 is sufficient to diagnose a patient with chronic kidney disease. Pharmacy Creatinine Clearance (Chem 39.77 [facility] Nucleated erythrocytes [Pres ence] in Blood by Automated countOrdered By: Bernabe Cr on 05-22-2022 Nucleated RBC Auto Ql (Bld) 0.1 /100{WBC} 0-0.5 [facility] Platelet mean volume Auto (B ld) [Entitic vol]Ordered By: Bernabe Cr on 05-22-2022 Platelet mean volume (Bld) [Entitic vol] 8.7 fL 6.6-10.1 [facility] Platelets Auto (Bld) [#/Vol] Ordered By: Bernabe Cr on 05-22-2022 Platelets (Bld) [#/Vol] 198 10*3/uL 150-450 [facility] RBC Auto (Bld) [#/Vol]Ordere d By: Bernabe Cr on 05-22-2022 RBC (Bld) [#/Vol] 4.29 10*6/uL 3.90-5.60 [facility] Serum or plasma anion gap de terminationOrdered By: Bernabe Cr on 05-22-2022 Anion gap [Moles/Vol] 13.3 mmol/L 6.0-15.0 [facility] Serum or plasma calcium elan urement (mass/volume)Ordered By: Bernabe Cr on 05-22-2022 Calcium [Mass/Vol] 8.3 mg/dL 8.2-10.2 [facility] Serum or plasma chloride herb surement (moles/volume)Ordered By: Bernabe Cr on 05-22-2022 Chloride [Moles/Vol] 104 mmol/L 95-114 [facility] Serum or plasma glucose elan urement (mass/volume)Ordered By: Bernabe Cr on 05-22-2022 Glucose [Mass/Vol] 180 mg/dL 70-100 [facility] Comment on above: ADA recommended refe rence rangeRandom Glucose Reference Range is dependent on time and content of last meal. Glucose of more than 200 mg/dL in a nonstressed, ambulatory subject supports the diagnosis of Diabetes Mellitus. Serum or plasma potassium me asurement (moles/volume)Ordered By: Bernabe Cr on 05-22-2022 Potassium [Moles/Vol] 3.3 mmol/L 3.5-5.1 [facility] Serum or plasma sodium measu rement (moles/volume)Ordered By: Bernabe Cr on 05-22-2022 Sodium [Moles/Vol] 137 mmol/L 136-146 [facility] Serum or plasma total carbon dioxide measurement (moles/volume)Ordered By: Bernabe Cr on 05-22-2022 CO2 [Moles/Vol] 23.0 mmol/L 22.0-30.0 [facility] Serum or plasma urea nitroge n measurement (mass/volume)Ordered By: Bernabe Cr on 05-22-2022 Urea nitrogen [Mass/Vol] 21 mg/dL 9-23 [facility] WBC Auto (Bld) [#/Vol]Ordere d By: Bernabe Cr on 05-22-2022 WBC (Bld) [#/Vol] 8.1 10*3/uL 4.1-10.5 [facility] No Panel InformationOrdered By: Bernabe Cr on 05-21-2022 25-Hydroxy Vitamin D Total 15.9 ng/mL 30-100 [facility] Comment on above: VITAMIN D STATUS 25( [place])VITAMIN D RANGE (ng/mL) Deficient <20 Insufficient 20 to <30Sufficient 30 to 100Reference: Sixto MF,Federico MATA, Palomo LESLIE, et al. Evaluation,treatment, and prevention of vitamin D deficiency; an Endocrine Society clinical practice guideline. JCEM. 2010; 96(7):1911-30. Vitamin C level 0.2 mg/dL 0.4-2.0 [facility] Comment on above: This test was develo ped and its performance characteristicsdetermined by [facility]. It has not been cleared orapproved by the Food and Drug Administration.Vitamin C deficiency is generally defined as plasma orserum concentrations less than 0.2 mg/dL and levels between0.2 and 0.4 mg/dL are considered low.Performed at: [address] [id number] Director: Mamadou Rodriguez MD, Phone: [phone] Folate [Mass/volume] in Seru m or PlasmaOrdered By: Taz Barnes on 05-20-2022 Folate [Mass/Vol] 5.5 ng/mL >5.9 [facility] Comment on above: Folate reference ran ge: >5.9 ng/mlThe WHO technical consultation on folate and vitamin [id number] has determined that folate concentrations lessthan 4 ng/ml are considered deficient. Laboratory - Chemistry and C hemistry - challengeOrdered By: Taz Barnes on 05-20-2022 Cobalamin (Vitamin B12) [Mass/Vol] 169 pg/mL 180-914 [facility] No Panel InformationOrdered By: Taz Barnes on 05-20-2022 Ova and Parasite Result 1 [facility] Ova and Parasite Result 1 [facility] Ova or parasites identificat ionOrdered By: Taz Barnes on 05-20-2022 Ova and parasites identified LM Nom (Unsp spec) [facility] Ova and parasites identified LM Nom (Unsp spec) [facility] Laboratory - Chemistry and C hemistry - challengeOrdered By: Janice Gonzalez on 05-19-2022 Magnesium [Mass/Vol] 1.7 mg/dL 1.6-2.6 [facility] Automated erythrocytes count in urine sediment (number/area)Ordered By: Taz Barnes on 05-18-2022 RBC Auto (Urine sed) [#/Area] 50-100 [HPF] 0-4 [facility] Automated leukocytes count i n urine sediment (number/area)Ordered By: Taz Barnes on 05-18-2022 WBC Auto (Urine sed) [#/Area] Innumerable [HPF] 0-4 [facility] Automated urine hyaline cast s count (number/volume)Ordered By: Taz Barnes on 05-18-2022 Hyaline casts Auto (U) [#/Vol] None seen [LPF] 0-1 [facility] Bilirubin Test strip Ql (U)O rdered By: Taz Barnes on 05-18-2022 Bilirubin Ql (U) Negative Negative [facility] Casts typing in urine sedime nt by light microscopyOrdered By: Taz Barnes on 05-18-2022 Casts LM Nom (Urine sed) None seen [LPF] None Seen [facility] Color Auto (U)Ordered By: Starr Barnes on 05-18-2022 Color (U) Yellow Yellow [facility] Ketones Auto test strip (U) [Mass/Vol]Ordered By: Taz Barnes on 05-18-2022 Ketones (U) [Mass/Vol] Negative Negative [facility] Nitrite Test strip Ql (U)Ord ered By: Taz Barnes on 05-18-2022 Nitrite Ql (U) Negative Negative [facility] Protein Auto test strip (U) [Mass/Vol]Ordered By: Taz Barnes on 05-18-2022 Protein (U) [Mass/Vol] 100 mg/dL Negative [facility] Specific gravity Auto test s trip (U) [Rel density]Ordered By: Taz Barnes on 05-18-2022 Specific gravity (U) [Rel density] 1.010 1.001-1.03 0 [facility] Squamous epithelial cells de tection in urine sediment by light microscopyOrdered By: Taz Barnes on 05-18-2022 Epithelial cells.squamous LM Ql (Urine sed) 1-2 [HPF] 0-2 [facility] Urine bacteria detection by automated methodOrdered By: Taz Barnes on 05-18-2022 Bacteria Auto Ql (U) None seen None Seen [facility] Urine clarity by refractomet ry automatedOrdered By: Taz Barnes on 05-18-2022 Clarity Refractometry automated (U) Turbid Clear [facility] Urine culture routineOrdered By: Taz Barnes on 05-18-2022 Bacteria identified Cx Nom (U) No Growth 2 Days [facility] Bacteria identified Cx Nom (U) No Growth 2 Days [facility] Urine glucose measurement by automated test strip (mass/volume)Ordered By: Taz Barnes on 05-18-2022 Glucose Auto test strip (U) [Mass/Vol] Normal mg/dL Normal [facility] Urine hemoglobin detection b y automated test stripOrdered By: Taz Barnes on 05-18-2022 Hemoglobin Auto test strip Ql (U) 2+ Negative [facility] Urine leukocyte esterase det ection by automated test stripOrdered By: Taz Barnes on 05-18-2022 Leukocyte esterase Auto test strip Ql (U) 4+ Negative [facility] Urobilinogen Auto test strip (U) [Mass/Vol]Ordered By: Taz Barnes on 05-18-2022 Urobilinogen (U) [Mass/Vol] Normal mg/dL Normal [facility] Yeast detection in urine sed iment by light microscopyOrdered By: Taz Barnes on 05-18-2022 Yeast LM Ql (Urine sed) None seen [HPF] None Se en [facility] pH Auto test strip (U)Ordere d By: Taz Barnes on 05-18-2022 pH (U) 7.5 [pH] 5.0-9.0 [facility] Activated partial thrombopla stin time (aPTT) in platelet poor plasma by coagulation aOrdered By: Taz Barnes on 05-16-2022 aPTT Coag (PPP) [Time] 29.5 s 25.1-36.5 [facility] Body fluid albumin measureme nt (mass/volume)Ordered By: Taz Barnes on 05-16-2022 Albumin (Body fld) [Mass/Vol] 2.9 g/dL 3.2-5.5 [facility] CBC AUTO DIFFon 05-16-2022 BASO # 0.0 103/ul Normal 0.0-0.1 [facility] Comment on above: Performed By: #### C BC #### [facility] [address] [place] [address] Dr. Karen Pierce Basophils/100 WBC (Bld) 0.3 % Normal 0.2-2.0 [facility] Comment on above: Performed By: #### C BC #### [facility] [address] [place] [address] Dr. Karen Pierce EO # 0.1 103/ul Normal 0.0-0.7 [facility] Comment on above: Performed By: #### C BC #### [facility] [address] [place] [address] Dr. Karen Pierce Eosinophils/100 WBC (Bld) 0.7 % Critically low 0.9-7.0 [facility] Comment on above: Performed By: #### C BC #### [facility] [address] [place] [address] Dr. Karen Pierce Erythrocyte distribution width (RBC) [Ratio] 14.8 % Normal 11.0-15.0 [facility] Comment on above: Performed By: #### C BC #### [facility] [address] [place] [address] Dr. Karen Pierce Hematocrit (Bld) [Volume fraction] 39.4 % Critically low 42.0-54.0 [facility] Comment on above: Performed By: #### C BC #### [facility] [address] [place] [address] Dr. Karen Pierce Hemoglobin (Bld) [Mass/Vol] 12.6 g/dL Critically low 14.0-18.0 [facility] Comment on above: Performed By: #### C BC #### [facility] [address] [place] [address] Dr. Karen Pierce IG # 0.04 10e3/ul Critically high 0.00-0.03 [facility] Comment on above: Performed By: #### C BC #### [facility] [address] [place] [address] Dr. Karen Pierce IG % 0.4 % Normal 0.0-0.5 [facility] Comment on above: Performed By: #### C BC #### [facility] [address] [place] [address] Dr. Karen Pierce LYMPH # 1.2 103/ul Normal 1.2-3.8 [facility] Comment on above: Performed By: #### C BC #### [facility] [address] [place] [address] Dr. Karen Pierce Lymphocytes/100 WBC (Bld) 11.8 % Critically low 20.5-60.0 [facility] Comment on above: Performed By: #### C BC #### [facility] [address] [place] [address] Dr. Karen Pierce MANUAL DIFF REQ NO Normal [facility] Comment on above: Performed By: #### C BC #### [facility] [address] [place] [address] Dr. Karen Pierce MCH (RBC) [Entitic mass] 27.5 pg Normal 25.9-34.0 [facility] Comment on above: Performed By: #### C BC #### [facility] [address] [place] [address] Dr. Karen Pierce MCHC (RBC) [Mass/Vol] 32.0 g/dL Normal 29.9-35.2 [facility] Comment on above: Performed By: #### C BC #### [facility] [address] [place] [address] Dr. Karen Pierce MCV (RBC) [Entitic vol] 86.0 fL Normal 80.0-94.0 [facility] Comment on above: Performed By: #### C BC #### [facility] [address] [place] [address] Dr. Karen Pierce MONO # 1.4 103/ul Critically high 0.3-0.8 [facility] Comment on above: Performed By: #### C BC #### [facility] [address] [place] [address] Dr. Karen Pierce Monocytes/100 WBC (Bld) 13.8 % Critically high 1.7-12. 0 [facility] Comment on above: Performed By: #### C BC #### [facility] [address] [place] [address] Dr. Karen Pierce NEUT # 7.6 103/ul Critically high 1.4-6.5 [facility] Comment on above: Performed By: #### C BC #### [facility] [address] [place] [address] Dr. Karen Pierce Neutrophils/100 WBC (Bld) 73.0 % Normal 43.0-75.0 [facility] Comment on above: Performed By: #### C BC #### [facility] [address] [place] [address] Dr. Karen Pierce Platelet mean volume (Bld) [Entitic vol] 10.6 fL Normal 9.5-13.5 [facility] Comment on above: Performed By: #### C BC #### [facility] [address] [place] [address] Dr. Karen Pierce PLT 193 103/ul Normal 150-450 [facility] Comment on above: Performed By: #### C BC #### [facility] [address] [place] [address] Dr. Karen Pierce RBC 4.58 106/ul Critically low 4.70-6.10 [facility] Comment on above: Performed By: #### C BC #### [facility] [address] [place] [address] Dr. Karen Pierce WBC 10.4 103/ul Normal 4.0-11.0 [facility] Comment on above: Performed By: #### C BC #### [facility] [address] [place] [address] ABD/PELVIS WO CONon [...] LORENZO SCHERER Date: 2022-05-16 09:21 Normal [facility] CULTURE URINEon 05-16-2022 CULTURE URINE Culture Observations : MODERATE GROWTH OF MIXED SKIN JAS. NO POTENTIAL PATHOGENS SEEN. Normal [facility] Comment on above: Performed By: #### U RTPCR #### [facility] [address] [address] [address] Karen Pierce Covid-19 PCR ([facility])on 04-26 SARS-CoV-2 (COVID-19) RNA KARI+probe Ql (Unsp spec) Not detected Normal NOT DETECTED [facility] Comment on above: Result Comment: When [...] for this test is supported by the [employer] of Health and Human Service's declaration that [...] used). Performed By: #### U A #### [facility] [address] [place] [address] [id number] [address] Karen Pierce Creatinine [Mass/volume] in UrineOrdered By: Taz Barnes on 05-16-2022 Creatinine (U) [Mass/Vol] 68.1 mg/dL [facility] Comment on above: No reference range e stablished ER URINE PROFILEon 2 Bilirubin Ql (U) Negative Normal NEGATIVE [facility] Comment on above: Performed By: #### U RTPCR #### [facility] [address] [place] [address] Dr. Karen Pierce Clarity (U) CLEAR Normal CLEAR [facility] Comment on above: Performed By: #### U RTPCR #### [facility] [address] [place] [address] Dr. Karen Pierce Color (U) YELLOW Normal YELLOW [facility] Comment on above: Performed By: #### U RTPCR #### [facility] [address] [place] [address] Dr. Karen Pierce ERUAHD A micrscopic examina tion will be performed if indicated. Normal [facility] Comment on above: Performed By: #### U RTPCR #### [facility] [address] [place] [address] Dr. Karen Pierce Glucose Ql (U) Negative Normal NEGATIVE [facility] Comment on above: Performed By: #### U RTPCR #### [facility] [address] [place] [address] Dr. Karen Pierce Hemoglobin Ql (U) MODERATE Abnormal NEGATIVE [facility] Comment on above: Performed By: #### U RTPCR #### [facility] [address] [place] [address] Dr. Karen Pierce Ketones Ql (U) Negative Normal NEGATIVE [facility] Comment on above: Performed By: #### U RTPCR #### [facility] [address] [place] [address] Dr. Karen Pierce LEUKOCYTES LARGE Abnormal NEGATIVE [facility] Comment on above: Performed By: #### U RTPCR #### [facility] [address] [place] [address] Dr. Karen Pierce Nitrite Ql (U) Negative Normal NEGATIVE [facility] Comment on above: Performed By: #### U RTPCR #### [facility] [address] [place] [address] Dr. Karen Pierce pH (U) 5.5 [pH] Normal 5-9 [facility] Comment on above: Performed By: #### U RTPCR #### [facility] [address] [place] [address] Dr. Karen Pierce SPEC GRAVITY <=1.005 Abnormal 1.005-<=1. 025 [facility] Comment on above: Performed By: #### U RTPCR #### [facility] [address] [place] [address] Dr. Karen Pierce UA PROTEIN Negative Normal NEGATIVE/ TRACE [facility] Comment on above: Performed By: #### U RTPCR #### [facility] [address] [place] [address] Dr. Karen Pierce UR MICRO IND INDICATED Normal [facility] Comment on above: Performed By: #### U RTPCR #### [facility] [address] [place] [address] Dr. Karen Pierce Urobilinogen Qn (U) 0.2 {Tonio'U}/dL Normal 0.2 - 1. 0 [facility] Comment on above: Performed By: #### U RTPCR #### [facility] [address] [place] [address] Dr. Karen Pierce Globulin Calc (S) [Mass/Vol] Ordered By: Taz Barnes on 05-16-2022 Globulin (S) [Mass/Vol] 3.5 g/dL [facility] - CoagulationOrde red By: Taz Barnes on 05-16-2022 PT Coag (PPP) [Time] 14.2 s 9.0-12.9 [facility] PROF 14(COMP METB)on 022 Albumin [Mass/Vol] 3.1 g/dL Critically low 3.4-5.[address] [facility] Comment on above: Performed By: #### U RTPCR #### [facility] [address] [place] [address] Dr. Karen Pierce Albumin/Globulin [Mass ratio] 0.7 {ratio} Normal [facility] Comment on above: Performed By: #### U RTPCR #### [facility] [address] [place] [address] Dr. Karen Pierce ALP [Catalytic activity/Vol] 96 U/L Normal 46-116 [facility] Comment on above: Performed By: #### U RTPCR #### [facility] [address] [address] [address] Karen Pierce ALT [Catalytic activity/Vol] 46 U/L Normal 16-63 [facility] Comment on above: Performed By: #### U RTPCR #### [facility] [address] [place] [address] Dr. Karen Pierce Anion gap [Moles/Vol] 19.7 mmol/L Normal [facility] Comment on above: Performed By: #### U RTPCR #### [facility] [address] [address] [address] Karen Pierce AST [Catalytic activity/Vol] 21 U/L Normal 15-37 [facility] Comment on above: Performed By: #### U RTPCR #### [facility] [address] [place] [address] Dr. Karen Pierce Bilirubin [Mass/Vol] 0.3 mg/dL Normal 0.2-1.0 [facility] Comment on above: Performed By: #### U RTPCR #### [facility] [address] [place] [address] Dr. Karen Pierce Calcium [Mass/Vol] 8.9 mg/dL Normal 8.5-10.1 [facility] Comment on above: Performed By: #### U RTPCR #### [facility] [address] [place] [address] Dr. Karen Pierce Chloride [Moles/Vol] 101 mmol/L Normal 98-107 [facility] Comment on above: Performed By: #### U RTPCR #### [facility] [address] [address] [address] Karen Pierce CO2 [Moles/Vol] 18.3 mmol/L Critically low 21.0-32.0 [facility] Comment on above: Performed By: #### U RTPCR #### [facility] [address] [address] [address] Karen Pierce Creatinine [Mass/Vol] 8.99 mg/dL Critically high 0.70-1.30 [facility] Comment on above: Performed By: #### U RTPCR #### [facility] [address] [address] [address] Karen Pierce EGFR-AF SAUDI ARABIAN 7 mL/min/1.73m2 Critically low >=60 [facility] Comment on above: Performed By: #### U RTPCR #### [facility] [address] [address] [address] Karen Pierce EGFR-NON AF SAUDI ARABIAN 6 mL/min/1.73m2 Critically low >=60 [facility] Comment on above: Performed By: #### U RTPCR #### [facility] [address] [address] [address] Karen Pierce Globulin (S) [Mass/Vol] 4.7 g/dL Normal [facility] Comment on above: Performed By: #### U RTPCR #### [facility] [address] [place] [address] Dr. Karen Pierce Glucose [Mass/Vol] 110 mg/dL Critically high 74-106 [facility] Comment on above: Performed By: #### U RTPCR #### [facility] [address] [address] [address] Karen Pierce Potassium [Moles/Vol] 5.0 mmol/L Normal 3.5-5.1 [facility] Comment on above: Performed By: #### U RTPCR #### [facility] [address] [place] [address] Dr. Karen Pierce Protein [Mass/Vol] 7.8 g/dL Normal 6.4-8.2 [facility] Comment on above: Performed By: #### U RTPCR #### [facility] [address] [address] [address] Karen Pierce Sodium [Moles/Vol] 134 mmol/L Critically low 136-145 [facility] Comment on above: Performed By: #### U RTPCR #### [facility] [address] [address] [address] Karen Pierce Urea nitrogen [Mass/Vol] 129.0 mg/dL Critically high 7.0-18.0 [facility] Comment on above: Performed By: #### U RTPCR #### [facility] [address] [address] [address] Karen Pierce Urea nitrogen/Creatinine [Mass ratio] 14.3 mg/mg Normal [facility] Comment on above: Performed By: #### U RTPCR #### [facility] [address] [address] [address] Karen Pierce Platelet poor plasma interna tional normalized ratio (INR) by coagulation assay (relatOrdered By: Taz Barnes on 05-16-2022 INR Coag (PPP) [Relative time] 1.3 {INR} [facility] Comment on above: INR Therapeutic Rang e [...] on 05-16-2022 Protein [Mass/Vol] 6.4 g/dL 6.1-7.9 [facility] Serum or plasma alanine bal otransferase measurement without P-5'-P (enzymatic activiOrdered By: Taz Barnes on 05-16-2022 ALT No additional P-5'-P [Catalytic activity/Vol] 38 U/L 10-60 [facility] Serum or plasma albumin/glob ulin mass ratioOrdered By: Taz Barnes on 05-16-2022 Albumin/Globulin [Mass ratio] 0.8 {ratio} [facility] Serum or plasma alkaline deonte sphatase measurement (enzymatic activity/volume)Ordered By: Taz Barnes on 05-16-2022 ALP [Catalytic activity/Vol] 78 U/L 32-92 [facility] Serum or plasma aspartate am inotransferase measurement (enzymatic activity/volume)Ordered By: Taz Barnes on 05-16-2022 AST [Catalytic activity/Vol] 19 U/L 10-42 [facility] Serum or plasma total biliru bin measurement (mass/volume)Ordered By: Taz Barnes on 05-16-2022 Bilirubin [Mass/Vol] 0.4 mg/dL 0.3-1.2 [facility] URINE MICROSCOPIC ONLYon BACTERIA SMALL Abnormal NONE SEEN [facility] Comment on above: Performed By: #### U RTPCR #### [facility] [address] [place] [address] Dr. Karen Pierce Bacteria identified Cx Nom (U) INDICATED Normal [facility] Comment on above: Performed By: #### U RTPCR #### [facility] [address] [place] [address] Dr. Karen Pierce CAST NONE SEEN Normal NONE SEEN [facility] Comment on above: Performed By: #### U RTPCR #### [facility] [address] [place] [address] Dr. Karen Pierce Crystals LM Nom (Urine sed) NONE SEEN Normal NONE SEEN [facility] Comment on above: Performed By: #### U RTPCR #### [facility] [address] [place] [address] Dr. Karen Pierce Epithelial cells LM Ql (Urine sed) NONE SEEN Normal NONE SEEN /RARE [facility] Comment on above: Performed By: #### U RTPCR #### [facility] [address] [place] [address] Dr. Karen Pierce MUCOUS NONE SEEN Normal NONE SEEN [facility] Comment on above: Performed By: #### U RTPCR #### [facility] [address] [place] [address] Dr. Karen Pierce RBC 20-50 Abnormal 0-2 [facility] Comment on above: Performed By: #### U RTPCR #### [facility] [address] [place] [address] Dr. Karen Pierce WBC (U) [#/Vol] /uL Abnormal NONE SEEN [facility] Comment on above: Performed By: #### U RTPCR #### [facility] [address] [place] [address] Dr. Karen Pierce Urine sodium measurement (mo [...] LORENZO SCHERER Date: 2022-05-16 09:25 Normal [facility] CBC AUTO DIFFon 05-15-2022 BASO # 0.0 103/ul Normal 0.0-0.1 [facility] Comment on above: Performed By: #### U A #### [facility] [address] [place] [address] Dr. Karen Pierce Basophils/100 WBC (Bld) 0.3 % Normal 0.2-2.0 [facility] Comment on above: Performed By: #### U A #### [facility] [address] [place] [address] Dr. Karen Pierce EO # 0.1 103/ul Normal 0.0-0.7 [facility] Comment on above: Performed By: #### U A #### [facility] [address] [address] [address] Karen Pierce Eosinophils/100 WBC (Bld) 0.7 % Critically low 0.9-7.0 [facility] Comment on above: Performed By: #### U A #### [facility] [address] [place] [address] Dr. Karen Pierce Erythrocyte distribution width (RBC) [Ratio] 14.9 % Normal 11.0-15.0 [facility] Comment on above: Performed By: #### U A #### [facility] [address] [place] [address] Dr. Karen Pierce Hematocrit (Bld) [Volume fraction] 39.8 % Critically low 42.0-54.0 [facility] Comment on above: Performed By: #### U A #### [facility] [address] [place] [address] Dr. Karen Pierce Hemoglobin (Bld) [Mass/Vol] 12.7 g/dL Critically low 14.0-18.0 [facility] Comment on above: Performed By: #### U A #### [facility] [address] [place] [address] Dr. Karen Pierce IG # 0.06 10e3/ul Critically high 0.00-0.03 [facility] Comment on above: Performed By: #### U A #### [facility] [address] [place] [address] Dr. Karen Pierce IG % 0.5 % Normal 0.0-0.5 [facility] Comment on above: Performed By: #### U A #### [facility] [address] [place] [address] Dr. Karen Pierce LYMPH # 0.9 103/ul Critically low 1.2-3.8 [facility] Comment on above: Performed By: #### U A #### [facility] [address] [place] [address] Dr. Karen Pierce Lymphocytes/100 WBC (Bld) 7.1 % Critically low 20.5-60.0 [facility] Comment on above: Performed By: #### U A #### [facility] [address] [place] [address] Dr. Karen Pierce MANUAL DIFF REQ NO Normal [facility] Comment on above: Performed By: #### U A #### [facility] [address] [place] [address] Dr. Karen Pierce MCH (RBC) [Entitic mass] 27.7 pg Normal 25.9-34.0 [facility] Comment on above: Performed By: #### U A #### [facility] [address] [place] [address] Dr. Karen Pierce MCHC (RBC) [Mass/Vol] 31.9 g/dL Normal 29.9-35.2 [facility] Comment on above: Performed By: #### U A #### [facility] [address] [place] [address] Dr. Karen Pierce MCV (RBC) [Entitic vol] 86.7 fL Normal 80.0-94.0 [facility] Comment on above: Performed By: #### U A #### [facility] [address] [address] [address] Karen Pierce MONO # 1.0 103/ul Critically high 0.3-0.8 [facility] Comment on above: Performed By: #### U A #### [facility] [address] [place] [address] Dr. Karen Pierce Monocytes/100 WBC (Bld) 8.5 % Normal 1.7-12.0 [facility] Comment on above: Performed By: #### U A #### [facility] [address] [place] [address] Dr. Karen Pierce NEUT # 9.9 103/ul Critically high 1.4-6.5 [facility] Comment on above: Performed By: #### U A #### [facility] [address] [place] [address] Dr. Karen Pierce Neutrophils/100 WBC (Bld) 82.9 % Critically high 43.0-75.0 [facility] Comment on above: Performed By: #### U A #### [facility] [address] [place] [address] Dr. Karen Pierce Platelet mean volume (Bld) [Entitic vol] 9.7 fL Normal 9.5-13.5 [facility] Comment on above: Performed By: #### U A #### [facility] [address] [place] [address] Dr. Karen Pierce PLT 206 103/ul Normal 150-450 [facility] Comment on above: Performed By: #### U A #### [facility] [address] [place] [address] Dr. Karen Pierce RBC 4.59 106/ul Critically low 4.70-6.10 [facility] Comment on above: Performed By: #### U A #### [facility] [address] [place] [address] Dr. Karen Pierce WBC 11.9 103/ul Critically high 4.0-11.0 [facility] Comment on above: Performed By: #### U A #### [facility] [address] [place] [address] Dr. Karen Pierce LIPASEon 05-15-2022 Lipase [Catalytic activity/Vol] 340.0 U/L Normal 73.0-393.0 [facility] Comment on above: Performed By: #### U A #### [facility] [address] [place] [address] Dr. Karen Pierce PROF 14(COMP METB)on 022 Albumin [Mass/Vol] 3.1 g/dL Critically low 3.4-5.0 [facility] Comment on above: Performed By: #### U A #### [facility] [address] [place] [address] Dr. Karen Pierce Albumin/Globulin [Mass ratio] 0.7 {ratio} Normal [facility] Comment on above: Performed By: #### U A #### [facility] [address] [place] [address] Dr. Karen Pierce ALP [Catalytic activity/Vol] 105 U/L Normal 46-116 [facility] Comment on above: Performed By: #### U A #### [facility] [address] [place] [address] Dr. Karen Pierce ALT [Catalytic activity/Vol] 49 U/L Normal 16-63 [facility] Comment on above: Performed By: #### U A #### [facility] [address] [place] [address] Dr. Karen Pierce Anion gap [Moles/Vol] 18.4 mmol/L Normal [facility] Comment on above: Performed By: #### U A #### [facility] [address] [place] [address] Dr. Karen Pierce AST [Catalytic activity/Vol] 20 U/L Normal 15-37 [facility] Comment on above: Performed By: #### U A #### [facility] [address] [place] [address] Dr. Karen Pierce Bilirubin [Mass/Vol] 0.3 mg/dL Normal 0.2-1.0 [facility] Comment on above: Performed By: #### U A #### [facility] [address] [place] [address] Dr. Karen Pierce Calcium [Mass/Vol] 9.1 mg/dL Normal 8.5-10.1 [facility] Comment on above: Performed By: #### U A #### [facility] [address] [place] [address] Dr. Karen Pierce Chloride [Moles/Vol] 103 mmol/L Normal 98-107 [facility] Comment on above: Performed By: #### U A #### [facility] [address] [place] [address] Dr. Karen Pierce CO2 [Moles/Vol] 20.1 mmol/L Critically low 21.0-32.0 [facility] Comment on above: Performed By: #### U A #### [facility] [address] [place] [address] Dr. Karen Pierce Creatinine [Mass/Vol] 9.58 mg/dL Critically high 0.70-1.30 [facility] Comment on above: Performed By: #### U A #### [facility] [address] [place] [address] Dr. Karen Pierce EGFR-AF SAUDI ARABIAN 6 mL/min/1.73m2 Critically low >=60 [facility] Comment on above: Performed By: #### U A #### [facility] [address] [place] [address] Dr. Karen Pierce EGFR-NON AF SAUDI ARABIAN 5 mL/min/1.73m2 Critically low >=60 [facility] Comment on above: Performed By: #### U A #### [facility] [address] [place] [address] Dr. Karen Pierce Globulin (S) [Mass/Vol] 4.6 g/dL Normal [facility] Comment on above: Performed By: #### U A #### [facility] [address] [address] [address] Karen Pierce Glucose [Mass/Vol] 114 mg/dL Critically high 74-106 [facility] Comment on above: Performed By: #### U A #### [facility] [address] [address] [address] Karen Pierce Potassium [Moles/Vol] 5.5 mmol/L Critically high 3.5-5.1 [facility] Comment on above: Performed By: #### U A #### [facility] [address] [address] [address] Karen Pierce Protein [Mass/Vol] 7.7 g/dL Normal 6.4-8.2 [facility] Comment on above: Performed By: #### U A #### [facility] [address] [address] [address] Karen Pierce Sodium [Moles/Vol] 136 mmol/L Normal 136-145 [facility] Comment on above: Performed By: #### U A #### [facility] [address] [address] [address] Karen Pierce Urea nitrogen [Mass/Vol] 134.0 mg/dL Critically high 7.0-18.0 [facility] Comment on above: Performed By: #### U A #### [facility] [address] [place] [address] Dr. Karen Pierce Urea nitrogen/Creatinine [Mass ratio] 14.0 mg/mg Normal [facility] Comment on above: Performed By: #### U A #### [facility] [address] [address] [address] Karen Pierce PROF CHEM 8 (BAS METB)on Anion gap [Moles/Vol] 12.6 mmol/L Normal [facility] Comment on above: Performed By: #### B MP #### [facility] [address] [place] [address] Dr. Karen Pierce Calcium [Mass/Vol] 8.7 mg/dL Normal 8.5-10.1 [facility] Comment on above: Performed By: #### B MP #### [facility] [address] [place] [address] Dr. Karen Pierce Chloride [Moles/Vol] 103 mmol/L Normal 98-107 [facility] Comment on above: Performed By: #### B MP #### [facility] [address] [address] [address] Karen Pierce CO2 [Moles/Vol] 27.3 mmol/L Normal 21.0-32.0 [facility] Comment on above: Performed By: #### B MP #### [facility] [address] [place] [address] Dr. Karen Pierce Creatinine [Mass/Vol] 1.26 mg/dL Normal 0.70-1.30 [facility] Comment on above: Performed By: #### B MP #### [facility] [address] [place] [address] Dr. Karen Pierce EGFR-AF SAUDI ARABIAN >60 Normal >=60 [facility] Comment on above: Performed By: #### B MP #### [facility] [address] [place] [address] Dr. Karen Pierce EGFR-NON AF SAUDI ARABIAN 55 mL/min/1.73m2 Critically low >=60 [facility] Comment on above: Performed By: #### B MP #### [facility] [address] [place] [address] Dr. Karen Pierce Glucose [Mass/Vol] 111 mg/dL Critically high 74-106 [facility] Comment on above: Performed By: #### B MP #### [facility] [address] [place] [address] Dr. Karen Pierce Potassium [Moles/Vol] 3.9 mmol/L Normal 3.5-5.1 [facility] Comment on above: Performed By: #### B MP #### [facility] [address] [place] [address] Dr. Karen Pierce Sodium [Moles/Vol] 139 mmol/L Normal 136-145 [facility] Comment on above: Performed By: #### B MP #### [facility] [address] [place], [place] [address] Dr. Karen Pierce Urea nitrogen [Mass/Vol] 21.0 mg/dL Critically high 7.0-18.0 [facility] Comment on above: Performed By: #### B MP #### [facility] [address] [place], [place] [address] Dr. Karen Pierce Urea nitrogen/Creatinine [Mass ratio] 16.7 mg/mg Normal [facility] Comment on above: Performed By: #### B MP #### [facility] [address] [place], [place] [address] Dr. Karen Pierce [facility] Metabolic Pane [facility] 05-11-2021 Albumin [Mass/Vol] 4.5 g/dL Normal 3.6-5.1 [facility] Comment on above: Performed By: #### C ROBYN, LIPD #### [facility] [address] [place], [place] [id number] Albumin/Globulin [Mass ratio] 2.0 {ratio} Normal 1.0-2.5 [facility] Comment on above: Performed By: #### C ROBYN, LIPD #### [facility] [address] [id number] ALP [Catalytic activity/Vol] 97 U/L Normal 40-129 [facility] Comment on above: Performed By: #### C MP, LIPD #### [facility] [address] [place] [id number] ALT [Catalytic activity/Vol] 18 U/L Normal 9-46 [facility] Comment on above: Result Comment: 04/25 Female reference range changed. Performed By: #### C MP, LIPD #### [facility] [address] [place], [place] [id number] Anion gap [Moles/Vol] 17 mmol/L Normal 12-20 [facility] Comment on above: Result Comment: Effe ctive 05/31/2019 reference range changed. Performed By: #### C MP, LIPD #### [facility] [address] [facility] [place] [id number] AST [Catalytic activity/Vol] 15 U/L Normal 10-40 [facility] Comment on above: Performed By: #### C MP, LIPD #### [facility] [address] [facility] [place] [id number] Bilirubin [Mass/Vol] 0.55 mg/dL Normal 0.30-1.20 [facility] Comment on above: Performed By: #### C MP, LIPD #### [facility] [address] [facility] [place] [id number] BUN/CREA 17 Ratio Normal 6-22 [facility] Comment on above: Performed By: #### C MP, LIPD #### [facility] [address] [facility] [place] [id number] Calcium [Mass/Vol] 9.8 mg/dL Normal 8.6-10.2 [facility] [place] Comment on above: Performed By: #### C MP, LIPD #### [facility] [address] [facility] [place] [id number] Chloride [Moles/Vol] 106 mmol/L Normal 98-107 [facility] Comment on above: Performed By: #### C MP, LIPD #### [facility] [address] [facility] [place] [id number] CO2 [Moles/Vol] 23 mmol/L Normal 20-31 [facility] Comment on above: Performed By: #### C MP, LIPD #### [facility] [address] [facility] [place] [id number] Creatinine [Mass/Vol] 1.2 mg/dL Normal 0.7-1.4 [facility] Comment on above: Performed By: #### C MP, LIPD #### [facility] [address] [place], [place] [id number] eGFRAA 73 mL/min/1.73m2 Normal >60 [facility] Comment on above: Performed By: #### C MP, LIPD #### [facility] [address] [facility] [address] [facility] [address] [place] [id number] eGFRNAA 60 mL/min/1.73m2 Low >60 [facility] Comment on above: Performed By: #### C MP, LIPD #### [facility] [address] [place], [place] [id number] Globulin (S) [Mass/Vol] 2.3 g/dL Normal 1.9-3.7 [facility] Special[facility] Comment on above: Performed By: #### C MP, LIPD #### [facility] [address] [place], [place] [id number] Glucose [Mass/Vol] 105 mg/dL High 65-99 [facility] [employer] Comment on above: Result Comment: For FASTING Glucose --- ADA reference ranges: Normal 65-99 mg/dl Prediabetes 100-125 Diabetes >/= 126 Performed By: #### C MP, LIPD #### [facility] [address] [place], [place] [id number] Potassium [Moles/Vol] 4.1 mmol/L Normal 3.5-5.5 [facility] Specialist Comment on above: Performed By: #### C MP, LIPD #### [facility] [address] [place], [place] [id number] Protein [Mass/Vol] 6.8 g/dL Normal 6.1-8.1 [facility] [employer] Comment on above: Performed By: #### C MP, LIPD #### [facility] [address] [place], [place] [id number] Sodium [Moles/Vol] 142 mmol/L Normal 135-146 [facility] [employer] Comment on above: Performed By: #### C MP, LIPD #### [facility] [address] [place], [place] [id number] Urea nitrogen [Mass/Vol] 20 mg/dL Normal 7-25 [facility] Specialist Comment on above: Performed By: #### C MP, LIPD #### [facility] [address] [place], [place] [id number] Lipid Panelon 05-11-2021 Cholesterol [Mass/Vol] 109 mg/dL Low 125-200 No [facility] [employer] Comment on above: Result Comment: Low risk < 200mg/dL Borderline risk 201-239 mg/dl High risk > or equal to 240 Performed By: #### C MP, LIPD #### [facility] [address] [place], [place] [id number] Cholesterol in HDL [Mass/Vol] 30 mg/dL Low >40 [facility] Specialist Comment on above: Result Comment: High Cardiovascular Risk HDL <40 mg/dL Low Cardiovascular Risk HDL > or equal to 60 mg/dl Performed By: #### C MP, LIPD #### [facility] [address] [place], [place] [id number] Cholesterol in LDL [Mass/Vol] 54 mg/dL Normal [facility] Specialist Comment on above: Result Comment: LDL ATP III CLASSIFICATION LDL less than 100 mg/dl Optimal LDL 100-129 mg/dl Near or above optimal LDL 130-159 Borderline high LDL 160-189 High LDL greater than 189 mg/dl Very High Performed By: #### C MP, LIPD #### [facility] [address] [place], [place] [id number] Cholesterol in VLDL [Mass/Vol] 25 mg/dL Normal [facility] [employer] Comment on above: Performed By: #### C MP, LIPD #### [facility] [address] [place], [place] [id number] Cholesterol.total/Sonya sterol in HDL [Mass ratio] 4 {ratio} Normal [facility] Specialist Comment on above: Performed By: #### C MP, LIPD #### [facility] [address] [place], [place] [id number] Triglyceride [Mass/Vol] 126 mg/dL Normal 30-150 [facility] Specialist Comment on above: Result Comment: TRIG ATPIII CLASSIFICATIONS TRIG less than 150 mg/dl Normal TRIG 150-199 mg/dl Borderline High TRIG 200-500 mg/dl High TRIG greather than 500 mg/dl Very High Performed By: #### C MP, LIPD #### [facility] [address] [place], [place] [id number] Vital Signs Date Time Vital Sign Value Performing Clinician Facility 06-30-2023 14:17-0500 Blood Pressure Location Katia SAMUELS [facility] 06-30-2023 14:17-0500 Diastolic blood pressure 77 mm[Hg] Katia SAMUELS [facility] 06-30-2023 14:17-0500 Heart rate 70 /min Katia SAMUELS [facility] 06-30-2023 14:17-0500 Respiratory rate 16 /min Katia SAMUELS [facility] 06-30-2023 14:17-0500 Systolic blood pressure 109 mm[Hg] Katia SAMUELS [facility] 04-15-2023 14:00-0500 Body height 187.96 cm Celia Danielsfrancoise Other [employer] [facility] [employer] Other 04-15-2023 14:00-0500 Body mass index (BMI) [Ratio] 28.73 kg/m2 [employer] Other [employer] Other 04-15-2023 14:00-0500 Body temperature 96.8 [degF] Celia [employer] Other [employer] Other 04-15-2023 14:00-0500 Body weight 101.52 kg Celia Danielss Other [employer] Other 04-15-2023 14:00-0500 Diastolic blood pressure 100 mm[Hg] Azcelestino Terezacatherines Other [employer] Other 04-15-2023 14:00-0500 Respiratory rate 18 /min Azcelestino [employer] Other [employer] Other 04-15-2023 14:00-0500 SaO2% (BldA) [Mass fraction] 96 % Azcelestino [employer] Other [employer] Other 04-15-2023 14:00-0500 Systolic blood pressure 161 mm[Hg] Celia Ramos Other [facility] [employer] Other 03-11-2023 13:38-0400 Blood Pressure Location Katia SAMUELS [facility] 03-11-2023 13:38-0400 Diastolic blood pressure 100 mm[Hg] Katia SAMUELS [facility] 03-11-2023 13:38-0400 Heart rate 72 /min Katia SAMUELS [facility] 03-11-2023 13:38-0400 Systolic blood pressure 150 mm[Hg] Katia SAMUELS [facility] 01-22-2023 09:57-0400 Body height 187.96 cm Stanley Emerson Work Phone: [facility] 250 DO Work Phone: 01-22-2023 09:57-0400 Body mass index (BMI) [Ratio] 27.35 kg/m2 Stanley Emerson Work Phone: [facility] 250 DO Work Phone: 01-22-2023 09:57-0400 Body surface area Derived from formula 2.23 m2 Stanley Emerson Work Phone: [facility] 250 DO Work Phone: 01-22-2023 09:57-0400 Body weight 96.62 kg Stanley Emerson Work Phone: [facility] 250 DO Work Phone: 01-22-2023 09:57-0400 Diastolic blood pressure 88 mm[Hg] Stanley Emerson Work Phone: [facility] 250 DO Work Phone: 01-22-2023 09:57-0400 Heart rate 72 /min Stanley Emerson Work Phone: [facility] 250 DO Work Phone: 01-22-2023 09:57-0400 Systolic blood pressure 126 mm[Hg] Stanley Emerson Work Phone: [facility] 250 DO Work Phone: 08-21-2022 14:30-0400 Body height 187.96 cm Carlene Kasper Other [employer] Other 08-21-2022 14:30-0400 Body mass index (BMI) [Ratio] 26.32 kg/m2 Carlene Kasper Other [employer] Other 08-21-2022 14:30-0400 Body temperature 97.8 [degF] Carlene Kasper Other [employer] Other 08-21-2022 14:30-0400 Body weight 92.99 kg Carlene Ranjith Other [employer] Other 08-21-2022 14:30-0400 Diastolic blood pressure 82 mm[Hg] Carlene Kasper Other [employer] Other 08-21-2022 14:30-0400 SaO2% (BldA) [Mass fraction] 96 % Carlene Kasper Other [employer] Other 08-21-2022 14:30-0400 Systolic blood pressure 124 mm[Hg] Carlene Kasper Other [employer] Other 07-31-2022 07:25-0500 Blood Pressure Location Katia SAMUELS [facility] 07-31-2022 07:25-0500 Diastolic blood pressure 89 mm[Hg] Katia SAMUELS [facility] 07-31-2022 07:25-0500 Heart rate 70 /min Katia SAMUELS [facility] 07-31-2022 07:25-0500 Respiratory rate 16 /min Katia SAMUELS [facility] 07-31-2022 07:25-0500 Systolic blood pressure 130 mm[Hg] Katia SAMUELS [facility] 07-25-2022 09:45-0500 Body height 187.96 cm Margarito Valentine Other [employer] [facility] [employer] Other 07-25-2022 09:45-0500 Body mass index (BMI) [Ratio] 26.32 kg/m2 Margarito Valentine Other [employer] [facility] [employer] Other 07-25-2022 09:45-0500 Body temperature 96.2 [degF] Margarito Valentine Other [employer] Other 07-25-2022 09:45-0500 Body weight 92.99 kg Margarito Valentine Other [employer] Other 07-25-2022 09:45-0500 Diastolic blood pressure 60 mm[Hg] Margarito Valentine Other [employer] Other 07-25-2022 09:45-0500 SaO2% (BldA) [Mass fraction] 97 % Margarito Valentine Other [employer] [facility] [employer] Other 07-25-2022 09:45-0500 Systolic blood pressure 110 mm[Hg] Margarito Valentine Other [employer] [facility] [employer] Other 07-03-2022 07:34-0500 Body temperature 98.9 [degF] MD Stanley Emreson Work Phone: [facility] 07-03-2022 07:34-0500 Diastolic blood pressure 91 mm[Hg] MD Stanley Emerson Work Phone: [facility] 07-03-2022 07:34-0500 Heart rate 87 /min MD Stanley Emerson Work Phone: [facility] 07-03-2022 07:34-0500 Respiratory rate 18 /min MD Stanley Emerson Work Phone: [facility] 07-03-2022 07:34-0500 SaO2% (BldA) [Mass fraction] 94 % MD Stanley Emerson Work Phone: [facility] 07-03-2022 07:34-0500 Systolic blood pressure 159 mm[Hg] MD Stanley Emerson Work Phone: [facility] 07-03-2022 05:46-0500 Body weight 94 kg MD Stanley Emerson Work Phone: [facility] 07-02-2022 16:27-0500 Inhaled oxygen flow rate 6 L/min MD Stanley Emerson Work Phone: [facility] 07-02-2022 10:06-0500 Body height 185.42 cm MD Stanley Emerson Work Phone: [facility] 07-02-2022 10:06-0500 Body mass index (BMI) [Ratio] 27.3 kg/m2 MD Stanley Emerson Work Phone: [facility] 06-19-2022 10:00-0500 Body height 187.96 cm Margarito Valentine Other [employer] Other 06-19-2022 10:00-0500 Body mass index (BMI) [Ratio] 26.32 kg/m2 Margarito Valentine Other [employer] Other 06-19-2022 10:00-0500 Body temperature 97.8 [degF] Margarito Valentine Other [employer] Other 06-19-2022 10:00-0500 Body weight 92.99 kg Margarito Valentine Other [employer] Other 06-19-2022 10:00-0500 Diastolic blood pressure 68 mm[Hg] Margarito Valentine Other [employer] Other 06-19-2022 10:00-0500 SaO2% (BldA) [Mass fraction] 95 % Margarito Valentine Other [employer] Other 06-19-2022 10:00-0500 Systolic blood pressure 108 mm[Hg] Margarito Valentine Other [employer] Other 06-12-2022 13:07-0500 Body height 187.96 cm MD Stanley Emerson Work Phone: [facility] 06-12-2022 13:07-0500 Body weight 93.44 kg MD Stanley Emerson Work Phone: [facility] 06-06-2022 12:00-0500 Body height 187.96 cm Magrarito Valentine Other [employer] Other 06-06-2022 12:00-0500 Body mass index (BMI) [Ratio] 26.32 kg/m2 Margarito Topetesarina Other [employer] Other 06-06-2022 12:00-0500 Body temperature 97.2 [degF] Margarito Topetesarina Other [employer] Other 06-06-2022 12:00-0500 Body weight 92.99 kg Margarito Topetesarina Other [employer] Other 06-06-2022 12:00-0500 Diastolic blood pressure 70 mm[Hg] Margarito Serge Other [employer] Other 06-06-2022 12:00-0500 SaO2% (BldA) [Mass fraction] 98 % Margarito Topetesarina Other [employer] Other 06-06-2022 12:00-0500 Systolic blood pressure 108 mm[Hg] Margarito Topetesarina Other [employer] Other 06-04-2022 12:00-0500 Body height 187.96 cm Celia [employer] Other [employer] Other 06-04-2022 12:00-0500 Body mass index (BMI) [Ratio] 26.42 kg/m2 Celia [employer] Other [employer] Other 06-04-2022 12:00-0500 Body temperature 96.6 [degF] Celia [employer] Other [employer] Other 06-04-2022 12:00-0500 Body weight 93.35 kg Jonhcelestino [employer] Other [employer] Other 06-04-2022 12:00-0500 Diastolic blood pressure 70 mm[Hg] Celia Ramos Other [employer] Other 06-04-2022 12:00-0500 Respiratory rate 20 /min Celia Ramos Other [employer] Other 06-04-2022 12:00-0500 SaO2% (BldA) [Mass fraction] 98 % Celia Ramos Other [employer] Other 06-04-2022 12:00-0500 Systolic blood pressure 100 mm[Hg] Celia Ramos Other [employer] Other 06-03-2022 15:38-0500 Body height 187.96 cm Stanley Emerson Work Phone: [facility] [employer] 250 DO Work Phone: 06-03-2022 15:38-0500 Body mass index (BMI) [Ratio] 26.45 kg/m2 Stanley Emerson Work Phone: [facility] 250 DO Work Phone: 06-03-2022 15:38-0500 Body surface area Derived from formula 2.2 m2 Stanley Emerson Work Phone: [facility] 250 DO Work Phone: 06-03-2022 15:38-0500 Body weight 93.44 kg Stanley Emerson Work Phone: [facility] 250 DO Work Phone: 06-03-2022 15:38-0500 Diastolic blood pressure 78 mm[Hg] Stanley Emerson Work Phone: [facility] 250 DO Work Phone: 06-03-2022 15:38-0500 Heart rate 71 /min Stanley Emerson Work Phone: [facility] 250 DO Work Phone: 06-03-2022 15:38-0500 Systolic blood pressure 106 mm[Hg] Stanley Emerson Work Phone: [facility] 250 DO Work Phone: 05-22-2022 11:53-0500 Body temperature 98.8 [degF] MD Stanley Emerson Work Phone: [facility] 05-22-2022 11:53-0500 Diastolic blood pressure 72 mm[Hg] MD Stanley Emerson Work Phone: [facility] 05-22-2022 11:53-0500 Heart rate 78 /min MD Stanley Emerson Work Phone: [facility] 05-22-2022 11:53-0500 Respiratory rate 16 /min MD Stanley Emerson Work Phone: [facility] 05-22-2022 11:53-0500 SaO2% (BldA) [Mass fraction] 97 % MD Stanley Emerson Work Phone: [facility] 05-22-2022 11:53-0500 Systolic blood pressure 108 mm[Hg] MD Stanley Emerson Work Phone: [facility] 05-22-2022 06:02-0500 Body weight 88.8 kg MD Stanley Emerson Work Phone: [facility] 05-21-2022 11:48-0500 63 1 Stanley Emerson Work Phone: [facility] 250 DO Work Phone: Comment on above: [id number] 05-17-2022 12:08-0500 Body height 187.96 cm MD Stanley Emerson Work Phone: [facility] Encounters Encounter Date Encounter Type Care Provider Facility Start: 07-01-2023 End: 07-02-2023 ambulatory Katiadesi SAMUELS Facility:[facility] Start: 06-30-2023 End: 07-01-2023 ambulatory Katia SAMUELS Facility:[facility] Start: 06-30-2023 End: 06-30-2023 Patient encounter procedure Katia SAMUELS [facility] Start: 06-16-2023 End: 06-17-2023 ambulatory Katiadesi SAMUELS Facility:[facility] Start: 06-16-2023 End: 06-16-2023 Patient encounter procedure Katia SAMUELS [facility] Start: 06-10-2023 End: 06-11-2023 ambulatory Katia SAMUELS Facility:[facility] Start: 06-10-2023 End: 06-10-2023 Patient encounter procedure Katia SAMUELS [facility] Start: 05-28-2023 End: 05-28-2023 ambulatory STANLEY EMERSON Not Available Start: 05-12-2023 End: 05-12-2023 ambulatory STANLEY EMERSON Not Available Start: 05-06-2023 End: 05-06-2023 ambulatory Azcelestino Bakhous Other [employer] Other Start: 05-06-2023 Telephone encounter Aziz Bakhous [facility] Start: 04-16-2023 End: 04-16-2023 ambulatory Aziz Bakhous Other [employer] Other Start: 04-16-2023 Telephone encounter Aziz Bakhous [facility] Start: 04-15-2023 End: 04-15-2023 ambulatory Celia Ramos Other [facility] [employer] Other Start: 04-15-2023 Office outpatient vi sit 25 minutes Celia Ramos [facility] Start: 04-08-2023 End: 04-08-2023 ambulatory Teo Stokes Facility:[facility] Start: 04-08-2023 End: 04-08-2023 ambulatory MD Stanley Emerson Work Phone: [facility] Work Phone: Start: 04-08-2023 End: 04-08-2023 Patient encounter procedure MD Stanley Emerson Work Phone: [facility] Start: 03-11-2023 End: 03-12-2023 ambulatory Katia SAMUELS Facility:[facility] Start: 03-11-2023 End: 03-11-2023 Lab Drop off Katia SAMUELS [facility] Start: 03-11-2023 End: 03-11-2023 Patient encounter procedure Katia SAMUELS [facility] Start: 01-22-2023 Office outpatient vi sit 25 minutes Stanley Emerson Work Phone: [place] [address] DO Work Phone: Start: 01-22-[address] Teo Stokes Facility: Start: 12-25-2022 End: 12-26-2022 ambulatory Katia SAMUELS Facility:[facility] Start: 12-25-2022 End: 12-25-2022 Patient encounter procedure Katia SAMUELS [facility] Start: 12-10-2022 End: 12-11-2022 ambulatory Katia SAMUELS Facility:[facility] Start: 12-10-2022 End: 12-10-2022 Lab Drop off Katia SAMUELS [facility] Start: 12-10-2022 End: 12-11-2022 ambulatory Katia Isabel ARLENE Facility:[facility] Start: 12-10-2022 End: 12-10-2022 Patient encounter procedure Katia Hall SAMUELS [facility] Start: 10-04-2022 End: 10-05-2022 ambulatory Katia Hall ARLENE Facility:[facility] Start: 10-04-2022 End: 10-04-2022 Patient encounter procedure Katia SAMUELS [facility] Start: 09-18-2022 End: 09-19-2022 ambulatory Katia R SAMUELS Facility: [facility] Start: 09-18-2022 End: 09-18-2022 Patient encounter procedure Katia SAMUELS [facility] Start: 09-15-2022 End: 09-15-[address] STANLEY EMERSON . Facility:[facility] Start: 09-12-2022 End: 09-13-[address] STANLEY EMERSON . Facility:[facility] Start: 09-08-2022 Encounter for preprocedural laboratory examination CELIA RAMOS [facility] Start: 09-04-2022 End: 09-05-[address] STANLEY EMERSON . Facility:[facility] Start: 09-04-2022 Encounter for preprocedural cardiovascular examination DR KATIA SAMUELS . [facility] Start: 09-02-2022 End: 09-03-[address] STANLEY EMERSON . Facility:[facility] Start: 09-02-2022 End: 09-03-2022 Encounter for preprocedural laboratory examination DR STANLEY EMERSON . Facility:[facility] Start: 09-02-2022 End: 09-03-[address] STANLEY EMERSON . Facility:[facility] Start: 09-02-2022 End: 09-03-2022 Encounter for preprocedural cardiovascular examination DR STANLEY EMERSON . Facility:[facility] Start: 08-21-2022 End: 08-21-2022 ambulatory Carlene Kasper Other [employer] Other Start: 08-21-2022 Follow-up encounter Carlene Dickerson [facility] Start: 08-16-2022 End: 08-16-2022 ambulatory Stanley Emerson Facility:[facility] Start: 08-16-2022 End: 08-16-2022 ambulatory MD Stanley Emerson Work Phone: [facility] Work Phone: Start: 08-16-2022 End: 08-16-2022 Patient encounter procedure MD Stanley Emerson Work Phone: [facility]-CT Scan [place] Work Phone: Start: 07-31-2022 End: 08-01-2022 ambulatory Katia SAMUELS Facility:[facility] Start: 07-31-2022 End: 07-31-2022 Patient encounter procedure Katia SAMUELS [facility] Start: 07-25-2022 End: 07-25-2022 ambulatory Margarito Valentine Other [employer] Other Start: 07-25-2022 Postop follow up vis it related to original px Margarito Valentine [facility] Vascular Surgery Start: 07-24-2022 End: 07-24-2022 ambulatory Stanley Emerson Facility:[facility] Start: 07-24-2022 End: 07-24-2022 ambulatory MD Stanley Emerson Work Phone: [facility] Work Phone: Start: 07-24-2022 End: 07-24-2022 Patient encounter procedure MD Stanley Emerson Work Phone: [facility]-MRI [place] Work Phone: Start: 07-02-2022 End: 07-03-2022 Evaluation and management of inpatient MD Stanley Emerson Work Phone: [facility] Work Phone: Start: 06-21-2022 End: 06-21-2022 Patient encounter procedure MD Stanley Emerson Work Phone: [facility]-Pre-Surgical Testing Work Phone: Start: 06-19-2022 End: 06-19-2022 ambulatory Margarito Valentine Other [employer] Other Start: 06-19-2022 Office outpatient vi sit 25 minutes Margarito Valentine [facility] Vascular Surgery Start: 06-12-2022 End: 06-12-2022 ambulatory MD Stanley Emerson Work Phone: [facility] Work Phone: Start: 06-12-2022 End: 06-12-2022 Patient encounter procedure MD Stanley Emerson Work Phone: [facility]-CT Scan [facility] [place] Work Phone: Start: 06-11-2022 End: 06-11-2022 Patient encounter procedure HEATHER SCHWAB [facility] Start: 06-06-2022 End: 06-06-2022 ambulatory Margarito Valentine Other [employer] Other Start: 06-06-2022 Office outpatient vi sit 25 minutes Margarito Valentine [facility] Vascular Surgery Start: 06-04-2022 End: 06-04-2022 ambulatory Celia Ramos Other [facility] [employer] Other Start: 06-04-2022 Office outpatient vi sit 25 minutes Celia Ramos [facility] Nephrology Tom Start: 06-03-2022 Office outpatient vi sit 25 minutes Stanley Emerson Work Phone: [facility] 250 DO Work Phone: Start: 06-03-[address] Stanley Emerson Facility: Start: 05-21-[address] Stanley Emerson Facility:[id number] Start: 05-20-[address] Stanley Emerson Facility:[id number] Start: 05-19-[address] Teo Stokes Facility:[id number] Start: 05-18-[address] Teo Stokes Facility:[id number] Start: 05-17-[address] Stanley Emerson Facility:[id number] Start: 05-17-2022 Bradyarrhythmia MD Stanley billingsley Work Phone: [facility] Start: 05-17-[address] Teo Stokes Facility:[id number] Start: 05-16-2022 End: 05-22-2022 Encounter for preprocedural cardiovascular examination MD Stanley Emerson Work Phone: [facility] Start: 05-16-2022 End: 05-22-2022 Evaluation and management of inpatient MD Stanley Emerosn Work Phone: [facility] Work Phone: Start: 05-16-2022 End: 05-16-[address] STANLEY EMERSON . Facility:[facility] Start: 05-15-2022 End: 05-16-[address] STANLEY EMERSON . Facility:[facility] Start: 01-04-2022 End: 01-04-[address] STANLEY EMERSON . Facility:[facility] Patient encounter status Stanley Emerson Work Phone: [facility] 250 DO Work Phone: End: 01-22-2023 Patient encounter status [facility] Work [facility]: Procedures Date Procedure [...] Teo Stokes, Status: Pen, Time: 11:50 AM [facility] 250 DO Work Phone: Start: 04-08-2023 Bacteria identified in Urine by Culture [facility] Start: 12-10-2022 FUV, Provider: Teo Stokes, Status: Pen, Time: 10:10 AM FUV, Provider: Teo Stokes, Status: Pen, Time: 10:10 AM [facility] 250 DO Work Phone: Start: 07-24-2022 MR Abdomen WO and W contrast IV [facility] Start: 07-24-2022 MRI of abdomen with contrast MR abdomen wo/w con [facility] Start: 07-03-2022 [facility] Start: 07-02-2022 Fluoroscopy of Aorta and Bilateral Lower Extremity Arteries using Low Osmolar Contrast Fluoroscopy of Aorta and Bilateral Lower Extremity Arteries using Low Osmolar Contrast [facility] Start: 07-02-2022 Restriction of Abdominal Aorta with Intraluminal Device, Percutaneous Approach Restriction of Abdominal Aorta with Intraluminal Device, Percutaneous Approach [facility] Start: 05-22-2022 [facility] Start: 05-20-2022 Evaluation procedure [facility] Start: 05-19-2022 [facility] Start: 05-17-2022 End: 05-17-2022 [facility] Start: 05-16-2022 Referral to seismology teacher [facility] Start: 05-16-2022 Referral to vascular surgeon [facility] Start: 05-16-2022 Hospital admission [facility] Patient Education [facility] Work Phone: Patient referral [facility] Work Phone: [facility] Immunizations Immunization Date Immunization Notes Care Provider Markus russell 03-29-2022 Pfizer COVID-19 Vac Bivalent 30 MCG/0.3ML Intramuscular Suspension Stanley Emerson Work Phone: [facility] 03-16-2022 influenza virus vacc ine, unspecified formulation Katia SAMUELS [facility] 03-16-2022 influenza, seasonal, injectable Stanley Emerson Work Phone: [facility] 250 DO Work Phone: 03-06-2022 Fluzone High-Dose Quadrivalent 0.7 ML Intramuscular Suspension Prefilled Syringe Stanley Emerson Work Phone: [facility] 250 DO Work Phone: 03-06-2022 influenza virus vacc ine, unspecified formulation HEATHER SCHWAB [facility] 10-03-2021 Comirnaty 30 MCG/0.3 ML Intramuscular Suspension Stanley Emerson Work Phone: [facility] 250 DO Work Phone: 10-03-2021 COVID-19 mRNATaniya (Pfizer) MD Stanley Emerson Work Phone: [facility] 10-03-2021 SARS-CoV-2 mRNA (ueustqwltgi-flag-bfvudr e) vaccine HEATHER SCHWAB [facility] 04-23-2021 pneumococcal polysaccharide vaccine, 23 valent Stanley Emerson Work Phone: [facility] 02-22-2021 influenza virus vacc ine, unspecified formulation Katia SAMUELS [facility] 02-22-2021 influenza, injectabl e, quadrivalent, preservative free Stanley Emerson Work Phone: [facility] 250 DO Work Phone: 02-21-2021 Pfizer-BioNTech COVI D-19 Vacc 30 MCG/0.3ML Intramuscular Suspension [employer] Work Phone: [facility] Comment on above: Result Comment: 2022: [id number] 07-28-2020 Pfizer-BioNTech COVI D-19 Vacc 30 MCG/0.3ML Intramuscular Suspension [employer] Work Phone: [facility] 07-07-2020 Pfizer-BioNTech COVI D-19 Vacc 30 MCG/0.3ML Intramuscular Suspension [employer] Work Phone: [facility] 02-22-2020 influenza virus vacc ine, unspecified formulation HEATHER SCHWAB [facility] 02-22-2020 Seasonal, quadrivale nt, recombinant, injectable influenza vaccine, preservative free [employer] Work Phone: [facility] 250 DO Work Phone: Payers Date Payer Category Payer Self-pay 2017 Medicare [id number] 1959 Medicare [id number] 1959 Private Health Insurance [id number] 1943 Unknown [id number] 2.16.840.1.033490.3.579.2.593 1943 Unknown [id number] 2.16.840.1.766284.3.579.2.593 1943 Unknown [id number] 2.16.840.1.334008.3.579.2.593 1943 Unknown [id number] 2.16.840.1.095992.3.579.2.593 1943 Unknown [id number] 2.16.840.1.654166.3.579.2.593 1943 Unknown [id number] 2.16.840.1.808447.3.579.2.593 1943 Unknown [id number] 2.16.840.1.083354.3.579.2.593 1943 Unknown [id number] 2.840.1.542208.3.579.2.593 1943 Unknown [id number] 2.840.1.116953.3.579.2.356 1943 Unknown [id number] 2.840.1.727206.3.579.2.356 1943 Unknown [id number] 2.840.1.506444.3.579.2.356 1943 Unknown [id number] 2.840.1.994061.3.579.2.356 1943 Unknown [id number] 2.840.1.684675.3.579.2.356 1943 Unknown [id number] 2.840.1.281048.3.579.2.356 1943 Unknown [id number] 2.840.1.892836.3.579.2.356 1943 Unknown [id number] 2.840.1.944951.3.579.2.356 1943 Unknown [id number] 2.840.1.960673.3.579.2.125 9 1943 Unknown [id number] 2.840.1.032275.3.579.2.125 9 1943 Unknown [id number] 2.16.840.1.214499.3.579.2.727 1943 Unknown [id number] 2.16.840.1.212327.3.579.2.727 1943 Unknown [id number] 2.16.840.1.213940.3.579.2.727 1943 Unknown [id number] 2.16.840.1.154644.3.579.2.72 1943 Unknown [id number] 2.16.840.1.561037.3.579.2.72 1943 Unknown [id number] 2.16.840.1.169819.3.579.2.72 1943 Unknown [id number] 2.16840.1.814379.3.579.2.72 1943 Unknown [id number] 2.16.840.1.260729.3.579.2.727 1943 Unknown [id number] 2.16.840.1.330908.3.579.2.72 1943 Unknown [id number] 2.16.840.1.194574.3.579.2.727 1943 Unknown [id number] 2.16.840.1.807889.3.579.2.72 1943 Unknown [id number] 2.16.840.1.583195.3.579.2.727 1943 Unknown [id number] 2.16.840.1.243489.3.579.2.727 Medicare Medicare Nonpatient [id number] Unknown [place] [facility] [facility] [id number] Unknown [id number] Unknown [id number] Unknown [id number] Social History Date Type Detail Facility Daily caffeine consumption Daily caffeine consumption -[facility] 250 DO Work Phone: Comment on above: 3-4 cups coffee kellen y; 05/17/23 quit; 1/2 dozen cigarettes ; Start: 06-11-2022 End: 03-11-2023 Tobacco smoking status Heavy tobacco smoker (finding) [facility] [place] Sex Assigned At Male [facility] Start: 05-17-2022 [facility] Start: 1945 Sex Assigned At Male [facility] Start: 07-02-2022 End: 07-02-2022 Tobacco smoking status [facility] Ex-smoker (finding) [facility] Tobacco smoking status Never [facility] Medical Equipment Procedure Code Equipment Code Equipment Origin al Text Equipment Identifier Dates Percutaneous endovascular repair of abdominal aortic aneurysm (AAA) Abdominal aorta endovascular stent-graft ()[id number] FDA Start: 07-02-2022 Percutaneous endovascular repair of abdominal aortic aneurysm (AAA) Abdominal aorta endovascular stent-graft ()[id number] FDA Start: 07-02-2022 Percutaneous endovascular repair of abdominal aortic aneurysm (AAA) Abdominal aorta endovascular stent-graft ()[id number] FDA Start: 07-02-2022 Percutaneous endovascular repair of abdominal aortic aneurysm (AAA) Soft-tissue/mesh anchor, non-bioabsorbable ()[id number] FDA Start: 07-02-2022 Goals Date Patient Goal Desired Activity /State Functional Status Date Assessment Result Facility 06-30-2023 Functional Status N/A [facility] [place] 06-10-2023 Functional Status N/A [facility] 03-11-2023 Functional Status N/A [facility] 12-10-2022 Functional Status N/A [facility] 09-18-2022 Functional Status N/A [facility] 07-31-2022 Functional Status N/A [facility] 07-03-2022 Functional status Patient at [facility] Work Phone: 06-11-2022 Functional Status N/A [facility] 05-16-2022 Functional status Patient Not at [facility] Work Phone: Mental Status Date Assessment Result Facility 07-03-2022 Cognitive function Cognitive Sta tus Patient at [facility] Work Phone: 05-16-2022 Cognitive function Cognitive Sta tus Patient at [facility] Work Phone: Clinical Notes [...] Follow these instructions at home: Medicines Take xhvp-eez-tylglqg and prescription medicines only as told by [...] provider. Document Revised: 01/31/2021 Document Reviewed: 01/31/2021 [employer] Patient Education 2022 [employer]. 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 6. Keep the drainage bag below the [...] Address: [facility] [address] [place] [address]- Business (1) When:06/24/2023 15:15:55 Comments:for zapien removal [facility] 06-10-2023 Note Custom Rezum [...] using a circul (more content not included)... [facility] 05-06-2023 Evaluation note Encounter Date Diagnosis Assessment Notes Apr, Primary hypertension (ICD-10 - I10) [facility] Other 11-21-2023 Evaluation note* Encounter Date Diagnosis [...] supplement. I asked the patient to continue gykk-goz-qjlgeli iron supplement once or twice daily Mar, Primary hypertension (ICD-10 - I10) BP is elevated. Will start Norvasc 5 mg PO daily. i asked the patient to monitor Bp closely with tapering steroid dose [facility] Other 10-17-2023 Hospital Discharge instructions Patient Education [...] including vitamins, herbs, eye drops, creams, and xwvf-ihc-ajdqpzz medicines. Any problems you or family members [...] provider tells you to take them. Taking okjl-jbh-htutgwk medicines, vitamins, herbs, and supplements. Surgery safety [...] provider. Document Revised: 02/05/2022 Document Reviewed: 02/05/2022 [employer] Patient Education 2022 [employer]. 03/11/2023 14:15:06 Benign Prostatic Hyperplasia Benign Prostatic [...] urethra. Follow these instructions at home: Take zisq-flr-avoxuea and prescription medicines only as told by [...] provider. Document Revised: 11/28/2021 Document Reviewed: 11/28/2021 [employer] Patient Education 2022 [employer]. Follow Up Care 02/07/2023 16:01:50 With:ARLENE CASILLAS, Katia Hall, URL Address: [facility] [address], [place] [address]- When:Within 3 Month(s) Comments:Sched cysto/FISH/Cytol/BT check [facility] 10-17-2023 Evaluation + Plan note Diagnostic Tests Pending * UroVysion Fish and Urine Cyto ([facility]) 03/11/23 [facility]08-15-2023 Note [id number]:127[facility] 12-10-2022 Evaluation + Plan note Diagnostic Tests Pending * UroVysion Fish and Urine Cyto ([facility]) 12/10/22 [facility]07-18-2023 Hospital Discharge instructions Patient [...] if anything looks unusual. Men with a exqmky-qfwf-ivtpmw risk for skin cancer may want to see a slunk skinner (division toll wire chief) for an annual body check. What are the benefits of screening? Cancer screening is done to look for cancer in the very early stages, before it spreads and becomesharder to treat and before you would start to notice symptoms. Finding cancer early improves the chances of successful treatment. It may save your life. Where to find more information [place] [employer]: www.cancer.org Centers for Disease Control and Prevention: www.cdc.gov National Cancer Ismay: www.cancer.gov Contact a health care provider if: [...] Document Reviewed: 04/07/2020 Elsevier Patient Education 2022 ClearStream. Follow Up Care 11/15/2022 14:27:10 With:ARLENE CASILLAS, Katia Hall, URL Address: [facility] [address] , [place] [address]- When: Unknown [facility] 04-26-2023 Hospital Discharge instructions Patient Education [...] cells. Follow these instructions at home: Take mnxa-hmw-cwtylxn and prescription medicines only as told by [...] is important. Where to find more information [place] Cancer Society (ACS): cancer.org National Cancer Ismay (NCI): cancer.gov Contact a health care provider [...] provider. Document Revised: 04/22/2022 Document Reviewed: 04/22/2022 [employer] Patient Education 2022 [employer]. Follow Up Care 08/26/2022 14:12:46 With:ARLENE CASILLAS, Katia Hall, URL Address: [facility] [address], [place] [address]- When: Unknown [facility] 04-10-2023 NoteEXAM: XR CHEST 2 V HISTORY: Pre-surgery evaluation COMPARISON: None. TECHNIQUE: PA and lateral views of the chest. FINDINGS: The cardiomediastinal silhouette is normal. No focal consolidation is identified. There is no pneumothorax. No pleural effusion is noted. The osseous structures are intact. IMPRESSION: No acute cardiopulmonary process. Electronically authenticated by: CORKY FORD Date: 2022-09-02 14:17[facility]03-29-2023 Evaluation note* Encounter Date Diagnosis Assessment [...] have his bladder tumor removal as scheduled. [facility] Other 03-08-2023 Evaluation + Plan note Diagnostic Tests Pending * UroVysion Fish and Urine Cyto ([facility]) 07/31/22 [facility] 03-08-2023 Hospital Discharge instructions Patient Education [...] including vitamins, herbs, eye drops, creams, and fqxs-kza-aslfodv medicines. Any problems you or family members [...] provider tells you to take them. Taking dmir-cbx-lheypqa medicines, vitamins, herbs, and supplements. Tests You [...] 03/08/2010 Document Revised: 12/11/2018 Document Reviewed: 12/11/2018 Atempo Patient Education 2020 ClearStream. Follow Up Care 07/25/2022 10:56:51 With:ARLENE CASILLAS, Katia Hall, URL Address: [facility] [address] , [place] [address]- When: Unknown [facility] 03-02-2023 Evaluation note* Encounter Date Diagnosis Assessment [...] some bladder issues. I did call the [employer]. The device is compatible up to 3 Maggi for MRI. I explained this to the family and the patient. Jul, Other specified postprocedural states (ICD-10 - Z98.890) Jul, Personal history of other diseases of the circulatory system (ICD-10 - Z86.79) [facility]01-25-2023 Evaluation note* Encounter Date Diagnosis Assessment Notes [...] plan to do this percutaneously under MAC. [facility] Other 01-17-2023 Hospital Discharge instructions Patient Education [...] including vitamins, herbs, eye drops, creams, and vyhm-uji-dqhpgcd medicines. Any problems you or family members [...] provider tells you to take them. ?Taking ntca-xwg-ssixfug medicines, vitamins, herbs, and supplements. Follow instructions [...] Follow these instructions at home: Medicines Take rxob-cul-bsxnmil and prescription medicines only as told by [...] 05/09/2001 Document Revised: 05/04/2019 Document Reviewed: 05/04/2019 Atempo Patient Education 2020 Atem[employer] Inc. Follow Up Care 05/22/2022 13:37:28 With:[facility] Address: [address] [place] [address] Business (1) When: Unknown Comments:our pharmacy scheduler will be contacting you for follow-up [facility] 01-12-2023 Evaluation note* Encounter Date Diagnosis [...] to proceed all his questions were addressed. [facility] Other 01-10-2023 Evaluation note* Encounter Date Diagnosis [...] (ICD-10 - E78.5) Patient is on statin [facility] Other Evaluation + Plan note No data available for this section [facility] evaluation + Plan note Future Appointments Appointment Date:10/04/2022 10:00:00 AM Scheduled Provider: Location:[facility] Appointment Type:URO Nurse Visit [facility] Evaluation + Plan note Future Appointments Appointment Date:06/16/2023 10:00:00 AM Scheduled Provider: Location:[facility] Appointment Type:URO Nurse Visit Appointment Date:06/30/2023 01:30:00 PM Scheduled Provider:[facility]UELS [facility]O Office Visit Diagnostic Tests Pending * UroVysion Fish and Urine Cyto ([facility]) [facility]ments Appointment Date:06/30/2023 01:30:00 PM Scheduled Provider:Katia SAMUELS MD Location:[facility] Appointment Type:URO Office Visit [facility] evaluation + Plan note Future Appointments Appointment Date:07/01/2023 08:30:00 AM Scheduled Provider: Location:[facility] Dominic Appointment Type:URO Nurse Visit [facility] evaluation note* Diagnosis Onset Date Resolution [...] acute Vitamin B 12 deficiency acut e [facility] Work Phone: Evaluation noteNo assessment information available [facility] Work Phone: Evaluation noteNo InformationN[facility]Ell[facility] [employer] Other [employer] general Narrative - Reported* Type Description Date [...] INJ URY, 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, 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 [facility] Other history general Narrative - Reported* Type [...] INJ URY, 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, 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 [facility] Other history general Narrative - Reported* Type [...] 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 Hospitalization History SEE ABOVE [facility] Other Hospital Discharge instructions No data available for this section [facility] [place] note No data available for this section [facility] [place] Summary Purpose Family History No Family [...] section and content) DATE CREATED AUTHOR 05/12/2021 [facility] dical Specialist DATE CREATED AUTHOR AUTHOR'S ORGANIZ ATION 09/23/2022 [facility] [place] [facility] DATE CREATED AUTHOR AUTHOR'S ORGANIZ ATION 01/23/2023 [facility] DATE CREATED AUTHOR AUTHOR'S ORGANIZ ATION 01/23/2023 [facility] DATE CREATED AUTHOR AUTHOR'S ORGANIZ ATION 05/29/2023 [facility] dical Specialists EPIC DATE CREATED AUTHOR AUTHOR'S ORGANIZ ATION 07/05/2023 [facility] DATE CREATED AUTHOR AUTHOR'S ORGANIZ ATION 07/13/2023 [facility] Patient Care team informatio n (unrecognized section [...] week f/u EVAR4 WK FOLLOW UP; CTA [facility] 08/16/22RENAL 6 month Follow upBPREFILL Goals (unrecognized [...] BE BASED ON THE PRIMARY CLINICAL RECORDS. [facility]. provides no warranty or guarantee of the accuracy or completeness of information in this document.
--- NOTE | 2023-07-30 21:46 | ED.GENADUL1 ---
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 Emptied bag this AM from overnight and so far today only small amount of urine has drained into the bag. Patient describes some abdominal pressure. No nausea or fever. noticed swelling of his RLE today. No associated pain. Related Data Home Medications Medication Instructions Recorded Confirmed acetaminophen 500 mg capsule 500 mg PO Q6H PRN fever or pain 04/13/23 07/30/23 albuterol sulfate 90 mcg/actuation 1 inh inhalation Q6H PRN 04/13/23 07/30/23 aerosol inhaler bronchospasm aspirin 81 mg tablet,delayed 81 mg PO DAILY 04/13/23 07/30/23 release (Ecotrin Low Strength) folic acid 1 mg tablet 1 mg PO DAILY 04/13/23 07/30/23 metoprolol tartrate 50 mg tablet 50 mg PO Q12H 04/13/23 07/30/23 multivitamin (Daily Multi-Vitamin 1 tab PO DAILY 04/13/23 07/30/23 tablet) simvastatin 20 mg tablet 20 mg PO DAILY 04/13/23 07/30/23 amlodipine 5 mg tablet mg 07/30/23 Previous Rx's Medication Instructions Recorded ciprofloxacin HCl 500 mg tablet 500 mg PO Q12H 10 days #20 tabs 07/26/23 Allergies Allergy/AdvReac Type Severity Reaction Status Date / Time No Known Drug Allergies Allergy Verified 07/30/23 20:27 Review of Systems ROS Status of ROS 10 or more systems reviewed and unremarkable except as noted in history and below PFSH PFS Social History Smoking status: Never smoker Exam Constitutional Vital Signs, click to edit/add: Last Vital Signs Temp 98.9 F 07/30/23 20:21 Pulse 81 07/30/23 22:28 Resp 18 07/30/23 20:21 BP 111/74 07/30/23 22:28 Pulse Ox 95 07/30/23 22:28 O2 Del Method Room Air 07/30/23 20:21 Common normals: no apparent distress, average body habitus, oriented x3, no limitations, healthy appearing, alert and well nourished Eye Common normals: EOMs intact bilaterally and conjunctivae normal Respiratory Common normals: normal respiratory effort, no retractions, no use of accessory muscles and clear to auscultation bilaterally Cardio Common normals: regular rate, regular rhythm, S1 normal heart sound and S2 normal heart sound GI Common normals: Normal to inspection, nondistended, normoactive bowel sounds present Other: distended and nontender Extremity Other: 1+ swelling RLE. no erythema or tenderness Neuro Common normals: oriented x3, CN's II-XII intact bilaterally, moves all extremities, no focal motor deficits and no sensory deficits noted Psych Appearance: grossly normal Course Vital Signs Vital signs: Vital Signs Temperature 98.9 F 07/30/23 20:21 Pulse Rate 90 07/30/23 20:21 Respiratory Rate 18 07/30/23 20:21 Blood Pressure 163/96 H 07/30/23 20:21 Pulse Oximetry 96 07/30/23 20:21 Oxygen Delivery Method Room Air 07/30/23 20:21 Temperature 98.9 F 07/30/23 20:21 Pulse Rate 81 07/30/23 22:28 Respiratory Rate 18 07/30/23 20:21 Blood Pressure 111/74 07/30/23 22:28 Pulse Oximetry 95 07/30/23 22:28 Oxygen Delivery Method Room Air 07/30/23 20:21 Medical Decision Making MDM Narrative Medical decision making narrative: patient presents with acute on chronic urinary retention. has indwelling catheter that was not draining. Nursing attempted to flush without success and ended up changing the catheter. Urine cx ordered. Patient without nausea, fever or fatigue. Does have swelling RLE which he and his state is increased today. States he usually has swelling about his ankle bu now his right lower leg is swollen. Not erythematous or tender. d-dimer is positive. Patient medicated with Lovenox and venous Doppler arranged for following day Lab Data Labs: Lab Results 07/30/23 Range/Units 22:23 WBC 10.7 (4.0-11.0) 10^3/uL RBC 4.89 (4.70-6.10) 10^6/uL Hgb 13.4 L (14.0-18.0) g/dL Hct 42.2 (42.0-54.0) % MCV 86.3 (80.0-94.0) fL MCH 27.4 (25.9-34.0) pg MCHC 31.8 (29.9-35.2) g/dL RDW 14.6 (11.0-15.0) % Plt Count 174 (150-450) 10^3/uL MPV 10.5 (9.5-13.5) fL Neut % (Auto) 72.6 (43.0-75.0) % Lymph % (Auto) 15.8 L (20.5-60.0) % [place] % (Auto) 9.1 (1.7-12.0) % Eos % (Auto) 1.4 (0.9-7.0) % Baso % (Auto) 0.6 (0.2-2.0) % Neut # (Auto) 7.8 H (1.4-6.5) 10^3/uL Lymph # (Auto) 1.7 (1.2-3.8) 10^3/uL [place] # (Auto) 1.0 H (0.3-0.8) 10^3/uL Eos # (Auto) 0.2 (0.0-0.7) 10^3/uL Baso # (Auto) 0.1 (0.0-0.1) 10^3/uL Abs Immat Gran (auto) 0.05 H (0.00-0.03) 10^3/uL Imm/Tot Granulo (auto) 0.5 (0.0-0.5) % D-Dimer 5.76 H* (<=0.59) mg/L FEU Sodium 139 (136-145) mmol/L Potassium 3.9 (3.5-5.1) mmol/L Chloride 106 (98-107) mmol/L Carbon Dioxide 23.2 (21.0-32.0) mmol/L Anion Gap 13.7 BUN 29.0 H (7.0-18.0) mg/dL Creatinine 1.61 H (0.70-1.30) mg/dL Est GFR ( Amer) 50 L (>=60) Est GFR (Non-Af Amer) 42 L (>=60) BUN/Creatinine Ratio 18.0 Glucose 110 H (74-106) mg/dL Calcium 9.0 (8.5-10.1) mg/dL Urine Color Lt. yellow (YELLOW) Urine Clarity Clear (CLEAR) Urine pH 6.0 (5.0-9.0) Ur Specific Alpine 1.020 (1.005-1.025) Urine Protein 30 A (NEG/TRACE) mg/dL Urine Glucose (UA) Negative (NEGATIVE) mg/dL Urine Ketones Negative (NEGATIVE) mg/dL Urine Occult Blood Large A (NEGATIVE) Urine Nitrite Negative (NEGATIVE) Urine Bilirubin Negative (NEGATIVE) Urine Urobilinogen 0.2 (0.2-1.0) EU/dL Ur Leukocyte Esterase Moderate A (NEGATIVE) Urine RBC 5-10 A (0-2) #/HPF Urine WBC 20-50 A (NONE SEEN) #/HPF Ur Squamous Epith Cells None seen (NONE/RARE) #/LPF Urine Crystals None seen (None Seen) #/HPF Urine Bacteria Trace A (NONE SEEN) #/HPF Urine Casts None seen (NONE SEEN) #/LPF Urine Mucus None seen (NONE SEEN) Ur Culture Indicated? Yes Discharge Plan Discharge Chief Complaint: Urogenital-Male Clinical Impression: Localized swelling of right lower extremity, Acute on chronic urinary retention Patient Disposition: Home, Self-Care Prescriptions / Home Meds: No Action albuterol sulfate 90 mcg/actuation HFA aerosol inhaler 1 inh INHALATION Q6H PRN (Reason: bronchospasm) folic acid 1 mg tablet 1 mg PO DAILY metoprolol tartrate 50 mg tablet 50 mg PO Q12H simvastatin 20 mg tablet 20 mg PO DAILY Hold Instructions: while taking ATBs aspirin [Ecotrin Low Strength] 81 mg tablet,delayed release (DR/EC) 81 mg PO DAILY multivitamin [Daily Multi-Vitamin] Tablet 1 tab PO DAILY acetaminophen 500 mg capsule 500 mg PO Q6H PRN (Reason: fever or pain) ciprofloxacin HCl 500 mg tablet 500 mg PO Q12H 10 Days Qty: 20 0RF amlodipine 5 mg tablet Instructions: Urinary Retention in Men (ED), Swollen Joint (ED) Additional Instructions: return tomorrow for ultrasound of your leg Referrals: NICHOLAS EMERSON [Primary Care Provider] - 1 week Stand Alone Forms: Portal Instructions
[2023-07-30 22:28] VITALS: BP 111/74; PULSE 81; O2SAT 95
[2023-07-30 22:41] LABS: Basophils Absolute Auto 0.1 10^3/uL (0.0-0.1); Basophils Percent Auto 0.6 % (0.2-2.0); Bilirubin Urine NEGATIVE (NEGATIVE); Blood Urine LARGE (NEGATIVE); Clarity Urine CLEAR (CLEAR); Color Urine LT. YELLOW (YELLOW); Eosinophils Absolute Auto 0.2 10^3/uL (0.0-0.7); Eosinophils Percent Auto 1.4 % (0.9-7.0); Glucose Urine UA NEGATIVE (NEGATIVE); Hematocrit 42.2 % (42.0-54.0); Hemoglobin 13.4 g/dL (14.0-18.0); Immature Granulocytes Abs Auto 0.05 10^3/uL (0.00-0.03); Immature Granulocytes Pct Auto 0.5 % (0.0-0.5); Ketones Urine NEGATIVE (NEGATIVE); Leukocyte Esterase Urine MODERATE (NEGATIVE); Lymphocytes Absolute Auto 1.7 10^3/uL (1.2-3.8); Lymphocytes Percent Auto 15.8 % (20.5-60.0); Mean Corpuscular HGB Conc 31.8 g/dL (29.9-35.2); Mean Corpuscular Hemoglobin 27.4 pg (25.9-34.0); Mean Corpuscular Volume 86.3 fL (80.0-94.0); Mean Platelet Volume 10.5 fL (9.5-13.5); Monocytes Percent Auto 9.1 % (1.7-12.0); Neutrophils Absolute Auto 7.8 10^3/uL (1.4-6.5); Neutrophils Percent Auto 72.6 % (43.0-75.0); Nitrite Urine NEGATIVE (NEGATIVE); Platelet Count 174 10^3/uL (150-450); Protein Urine 30 mg/dL (NEG/TRACE); Red Blood Count 4.89 10^6/uL (4.70-6.10); Red Cell Distribution Width 14.6 % (11.0-15.0); Urobilinogen Urine 0.2 EU/dL (0.2-1.0); White Blood Count 10.7 10^3/uL (4.0-11.0)
[2023-07-30 22:42] LABS: Urine Microscopic Indicated YES
[2023-07-30 22:47] LABS: Anion Gap 13.7; Carbon Dioxide 23.2 mmol/L (21.0-32.0); Chloride 106 mmol/L (98-107); Estimated GFR (African America 50 (>=60); Estimated GFR (Non-African Ame 42 (>=60); Glucose 110 mg/dL (74-106); Potassium 3.9 mmol/L (3.5-5.1); Sodium 139 mmol/L (136-145)
[2023-07-30 22:53] LABS: Bacteria Urine TRACE #/HPF (NONE SEEN); Cast Seen? NONE SEEN #/LPF (NONE SEEN); Crystals Seen? None Seen #/HPF (None Seen); Mucus Urine NONE SEEN (NONE SEEN); Squamous Epithelial Cell Urine NONE SEEN #/LPF (NONE/RARE); Urine Culture Indicated YES; WBC Urine 20-50 #/HPF (NONE SEEN)
[2023-07-30 23:17] LABS: D Dimer 5.76 mg/L FEU (<=0.59)
[2023-07-30] MEDS: ENOXAPARIN SODIUM 100 MG/ML SYRINGE SUBQ (23:55)
== END 2023-07-31 00:02 | disposition home or self-care (01) ==
PROVIDERS: Emergency Provider Internal Medicine; PCP Family Medicine
DX: R33.9 Retention of urine, unspecified (principal); M79.89 Other specified soft tissue disorders; Z79.82 Long term (current) use of aspirin; Z79.899 Other long term (current) drug therapy; R79.89 Other specified abnormal findings of blood chemistry; T83.091A Other mechanical complication of indwelling urethral catheter, initial encounter
CPT/HCPCS: 36415; 51702; 80048; 81001; 85025; 85378; 87086; 99284

== ENCOUNTER 2023-07-31 08:31 | Outpatient (OUT) | payer MEDICARE, OTHER, SELFPAY ==
--- NOTE | 2023-07-31 08:38 | US_ITS ---
The [address] [address] Patient Name: ALEX GRAJEDA MRN: [id number] date: 1945 Sex: M Assigned Patient Location: RAD Current Patient Location: RAD Accession/Order Number: [id number] Exam Date: 07/31/2023 08:40 Report Date: 07/31/2023 10:47 At the request of: CAROLINA LEWIS Procedure: US venous doppler LE RT EXAMINATION: US venous doppler LE RT HISTORY: Deep Vein Thrombosis , right leg swelling COMPARISON: No relevant comparison available. FINDINGS: REGION: Right lower extremity THROMBI: None. COMPRESSIBILITY: Normal compressibility. FLOW: Normal waveform and antegrade flow between 5 and 20 cm/s. OTHER: Subcutaneous edema. US/US venous doppler LE RT IMPRESSION: 1. No deep vein thrombus within the right lower extremity. Electronically authenticated by: LORENZO SCHERER Date: 07/31/2023 10:47
== END 2023-07-31 08:32 | disposition home or self-care (01) ==
LOC: RAD 08:33
PROVIDERS: PCP Family Medicine; Visit Provider Internal Medicine
DX: I82.401 Acute embolism and thrombosis of unspecified deep veins of right lower extremity (principal)
CPT/HCPCS: 93971

== ENCOUNTER 2023-07-31 11:50 | Emergency (ER) | payer MEDICARE, OTHER, SELFPAY ==
[2023-07-31 11:54] VITALS: BP 138/89; PULSE 90; RESP 16; TEMP 37.1; O2SAT 97; BMI 28.2
--- OUTSIDE RECORDS SUMMARY | 2023-07-31 12:11 | XMS_ITS | CCD ---
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 Name Role Phone Stanley Emerson Unavailable Unavailable Unavailable STANLEY EMERSON Primary Care Physician Unavail able MD Stanley Emerson Primary Care Provider [phone] MD Taz Barnes Admit Provider MD Margarito Valentine Other Provider MD Janice Gonzalez Other Provider DO Bernabe Cr Attending Provider MD Margarito Valentine Attending Provider MD Margarito Valentine Admit Provider Celia Ramos Unavailable Margarito Valentine Unavailable [phone] MOMO Schwab Attending Provider MD Stanley Emerson Primary Care Provider MD Taz Barnes Admit Provider MD Margarito Valentine Other Provider MD Janice Gonzalez Other Provider DO Bernabe Cr Attending Provider [phone] MD Margarito Valentine Attending Provider MD Margarito [...] Attending Provider MD Teo Stokes Referring Provider [phone] STANLEY EMERSON Attending Unavailable IDANIA, STANLEY Rich [...] Medication Allergies] Propensity to adverse reactions (disorder) [facility] Repository Medications Current Medications Medication Drug [...] take 1 tablet by mouth every hour [place] 325 mg-7.5 mg oral tablet 1 tab(s), Oral, Once, 1 tab(s), Refill(s) 0, Take 1 hour prior to procedure, [facility]/pharmacy #[id number], 187, cm, 03/11/23 13:44:00 EDT, Height/Length [...] Daily, # 14 tab(s), Refills(s) 0, Pharmacy: [facility]/pharmacy #[id number], 187, cm, 06/10/23 13:43:00 EST, Height/Length [...] Drug Class(es) Dates Sig (Normalized) Sig (Original) [id number] 200 actuat albuterol 0.09 mg/actuat metered dose [...] procedure, # 6 tab(s), Refills(s) 0, Pharmacy: [facility]/pharmacy #[id number], 187, cm, 09/18/22 14:39:00 EDT, Height/Length Dosing, 93, kg, 09/18/22 14:39:00 EDT, Weight Dosing Start Date: 12/03/22 Status: Ordered Start: 07-25-2022 take 1 tablet by charlene th once daily Cipro 250 mg Tab 250 mg = 1 tab(s), Oral, Daily, Take 1 tablet the day before the procedure and 1 tablet after the procedure, # 2 tab(s), Refills(s) 0, Pharmacy: [facility]/pharmacy #[id number], 187, cm, 06/11/22 9:11:00 EST, Height/Length [...] 05-22-2022 Episodic Other aftercare (1 source) Other skilled nursing (current) drug therapy; Translations: [OTH SKILLED NURSING CURRENT DRUG THERAPY] Onset: 09-23-2022 Episodic Other aftercare (1 source) [facility] (current) use of anticoagulants; Translations: [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 Take paeb-kfs-oklxaif and prescription medicines only as told by [...] provider. Document Revised: 01/31/2021 Document Reviewed: 01/31/2021 [employer] Patient Education ? 2022 Dibsie. Carmella [facility] Urology Office/Clinic Noteon 06-30-2023 Urology Office/Clinic [...] and history for this patient from Dr. Samuesl. I have reviewed and verified the staff [...] Urinary retention (R33.9: Retention of urine, unspecified) [facility] ER on 09/15/22 due to catheter clogged. [...] [facility] [address], [place] [phone]- [phone] Additional Instructions: 1 day for catheter removal [...] Use:. Cigarettes, (more content not included)... Normal [facility] Comment on above: Result Comment: Elec tronically Signed By: Katia SAMUELS MD\.br\Date and Time Signed: 06/30/23 14:32 EST\.br\Electronically Co-Signed By: Apple Escoto\.br\Date and Time Co-Signed: 06/30/23 14:30 EST [facility] Fish and Urine Cyt o ([facility])on 06-26-2023 [facility] Revision Information Invalid Interpretation Code [facility] Comment on above: Result Comment: Brayan ection Reason -[ Fredi Stephen, 06/26/23 - 10:32 ] Corrected report issued to update PMS/PWS. The diagnosis remains unchanged. Correction Notes - Performed By: #### 1 [id number] ####[facility] [address] [place] [address] Ambulatory Visit Summaryon 0 06-16-2023 Ambulatory Visit Summary ALEX ANDERSON :1945 Visit Date:06/16/2023 Ambulatory Visit Instructions Your Diagnosis BPH with urinary obstruction Your Care Team Attending Physician - ARLENE CASILLAS, Katia Hall Primary Care Physician - IDANIA CASILLAS, STANLEY Rich This Is Your Medications List acetaminophen-hydrocodone ([place] 325 mg-7.5 mg oral tablet) albuterol (Albuterol [...] CASILLAS, Katia Hall Where: [facility] Emergency Department Reminderson 06-12-2023 Reminders - From: Dana Rivas To: [facility] - Recalls Arlene; Sent: 09/18/2022 15:49:30 EDT Show up: 01/24/2023 15:49:00 EDT Subject: Cysto/FISH/cytol Due Date/Time: 02/10/2023 15:49:00 EDT Reminder/Recall Patient needs scheduled for 3 mo Cysto/FISH/cytol (bt ck) in Feb 2023 Patient sched for 03/11/23 in [place]. Pt will be due in May 2023.LG Patient had cysto/Rezum on 06/10/23. He will be due in August 2023.[facility] Consent for Procedure/Surger yon 06-10-2023 Consent for Procedure/Surgery [id number]#[id number] [facility] Consent for Treatmenton 05-26 Consent for Treatment [id number]#[id number] [facility] IntraOperative Documentson 0 06-10-2023 IntraOperative Documents [id number]#[id number] Normal [facility] Main OR Intraoperative Recor don 06-10-2023 Main OR Intraoperative Record IntraOp Document Type FTURO Summary Primary Physician: Katia SAMUELS MD Finalized Date/Time: 06/10/23 15:18:46 Pt. Name: ANDERSONALEX./Sex: 1945 Male Med Rec #: [id number] Physician: Katia SAMUELS MD Financial #: [id number] Pt. Type: O Room/Bed: / Admit/Disch: 06/10/23 12:50:19 - Institution: Case Times FTURO Entry 1 Patient Times In Room 06/10/23 14:32:00 Out Room 06/10/23 15:13:00 Procedure Times Start 06/10/23 14:40:00 Stop 06/10/23 15:07:00 Anesthesia Times Last Modified By: Clifford CHAN, KATEOR, Gayatri 06/10/23 15:07:12 Case Attendance FTURO Entry 1 Entry 2 Entry 3 Case Attendee Kaita SAMUELS MD RN, CNOR, Kathleen Lai Role Performed Surgeon - Primary First Responder - Primary Scrub - Primary Time In 06/10/23 14:32:00 06/10/23 14:32:00 06/10/23 14:32:00 Time Out 06/10/23 15:13:00 06/10/23 15:13:00 06/10/23 15:13:00 Procedure CYSTOSCOPY LOCAL CYSTOSCOPY LOCAL CYSTOSCOPY LOCAL REZUM(.) REZUM(.) REZUM(.) Daisy piña senior information security analyst in room orienting Last Modified By: Clifford [...] WOLFGANG Horton RN, Ruthann 06/10/23 15:18 Normal [facility] Main OR Preoperative Recordo n 06-10-2023 Main OR Preoperative Record Holding Area Document Type FTURO Summary Primary Physician: Katia SAMUELS MD Finalized Date/Time: 06/10/23 14:49:26 Pt. Name: ALEX ANDERSON/Sex: 1945 Male Med Rec #: [id number] Physician: Katia SAMUELS MD Financial #: [id number] Pt. Type: O Room/Bed: / Admit/Disch: 06/10/23 [...] GLASSES; BILATERAL Limitations: UP AD JOSIAH. 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 Normal [facility] Comment on above: Result Comment: Elec [...] with antibiotic coverage, Follow up arranged. Normal [facility] Comment on above: Result Comment: Elec tronically Signed By: Katia SAMUELS MD.br\Date and Time Signed: 06/10/23 15:20 EST [facility] Fish and Urine Cyt o ([facility])on 06-10-2023 [facility] Method of Extraction Catheterized Normal [facility] Comment on above: Performed By: #### 1 [id number] ####[facility] [address] [place] [address] [facility] Number of Jars 1 Invalid Interpretation Code [facility] Comment on above: Performed By: #### 1 [id number] ####[facility] [address] [place] [address] [facility] Specimen Urine Normal [facility] Comment on above: Performed By: #### 1 [id number] ####[facility] [address] [place] [address] [facility] Type of Service Technical Only Normal [facility] Comment on above: Performed By: #### 1 [id number] ####[facility] [address] [place] [address] Alanine aminotransferase [En zymatic activity/volume] in Serum or PlasmaOrdered By: Celia Ramos on 04-08-2023 ALT [Catalytic activity/Vol] 17 U/L 7-52 [facility] Albumin [Mass/volume] in Ser um or Plasma by Bromocresol green (BCG) dye binding methoOrdered By: Celia Ramos on 04-08-2023 Albumin BCG dye [Mass/Vol] 4.2 g/dL 3.5-5.7 [facility] Alkaline phosphatase [Enzyma tic activity/volume] in Serum or PlasmaOrdered By: Celia Ramos on 04-08-2023 ALP [Catalytic activity/Vol] 72 U/L 34-104 [facility] Aspartate aminotransferase [ Enzymatic activity/volume] in Serum or PlasmaOrdered By: Celia Ramos on 04-08-2023 AST [Catalytic activity/Vol] 16 U/L 13-39 [facility] Automated erythrocytes count in urine sediment (number/area)Ordered By: Celia Ramos on 04-08-2023 RBC Auto (Urine sed) [#/Area] 3-4 [HPF] 0-4 [facility] Automated leukocytes count i n urine sediment (number/area)Ordered By: Celia Ramos on 04-08-2023 WBC Auto (Urine sed) [#/Area] 50-100 [HPF] 0-4 [facility] Bilirubin Test strip Ql (U)O rdered By: Celia Ramos on 04-08-2023 Bilirubin Ql (U) Negative Negative [facility] Bilirubin.total [Mass/volume ] in Serum or PlasmaOrdered By: Celia Ramos on 04-08-2023 Bilirubin [Mass/Vol] 0.5 mg/dL 0.3-1.0 [facility] Calcium [Mass/volume] in Ser um or PlasmaOrdered By: Celia Ramos on 04-08-2023 Calcium [Mass/Vol] 9.3 mg/dL 8.6-10.3 [facility] Carbon dioxide, total [Moles /volume] in Serum or PlasmaOrdered By: Celia Ramos on 04-08-2023 CO2 [Moles/Vol] 31.6 mmol/L 21.0-31.0 [facility] Chloride [Moles/volume] in S marium or PlasmaOrdered By: Celia Ramos on 04-08-2023 Chloride [Moles/Vol] 107 mmol/L 98-107 [facility] Cholesterol [Mass/volume] in Serum or PlasmaOrdered By: Teo Stokes on 04-08-2023 Cholesterol [Mass/Vol] 107 mg/dL 140-200 [facility] Comment on above: Chol less than 200 m g/dl low riskChol 201-239 mg/dl borderline riskChol 240 mg/dl and greater high risk Cholesterol in LDL Calc [Mas s/Vol]Ordered By: Toe Stokes on 04-08-2023 Cholesterol in LDL [Mass/Vol] 47 mg/dL 0-100 [facility] Comment on above: LDL ATP III CLASSIFI CATIONLDL less than 100 mg/dL OptimalLDL 100-129 mg/dL Near or above optimalLDL 130-159 mg/dL Borderline highLDL 160-189 mg/dL HighLDL greater than 189 mg/dL Very high Cholesterol in VLDL Calc [Ma ss/Vol]Ordered By: Teo Stokes on 04-08-2023 Cholesterol in VLDL [Mass/Vol] 26 mg/dL [facility] Color Auto (U)Ordered By: Jonh Ramos on 04-08-2023 Color (U) Yellow Yellow [facility] Comprehensive Metabolic Pane howard 04-08-2023 Albumin [Mass/Vol] 4.2 g/dL Normal 3.5-5.7 [facility] Comment on above: Order Comment: Reaso n for Exam Acute kidney injury;Chronic kidney disease, stage 3b;Bilater Performed By: #### V [id number], MANDI, B12, MG, PHOS, CMP, FOL, FE and TIBC, URIC #### [facility] [address] Albumin/Globulin [Mass ratio] 1.5 {ratio} Normal [facility] Comment on above: Order Comment: Reaso n for Exam Acute kidney injury;Chronic kidney disease, stage 3b;Bilater Performed By: #### V [id number], MANDI, B12, MG, PHOS, CMP, FOL, FE and TIBC, URIC #### [facility] [address] [place] [id number] [facility] ALP [Catalytic activity/Vol] 72 U/L Normal 34-104 [facility] Comment on above: Order Comment: Reaso n for Exam Acute kidney injury;Chronic kidney disease, stage 3b;Bilater Performed By: #### V [id number], MANDI, B12, MG, PHOS, CMP, FOL, FE and TIBC, URIC #### [facility] [address] [place] [id number] [facility] ALT [Catalytic activity/Vol] 17 U/L Normal 7-52 [facility] Comment on above: Order Comment: Reaso n for Exam Acute kidney injury;Chronic kidney disease, stage 3b;Bilater Performed By: #### V [id number], MANDI, B12, MG, PHOS, CMP, FOL, FE and TIBC, URIC #### [facility] [address] [place] [id number] [facility] Anion gap [Moles/Vol] 8.9 mmol/L Normal 6.0-15.0 [facility] Comment on above: Order Comment: Reaso n for Exam Acute kidney injury;Chronic kidney disease, stage 3b;Bilater Performed By: #### V [id number], MANDI, B12, MG, PHOS, CMP, FOL, FE and TIBC, URIC #### [facility] [address] AST [Catalytic activity/Vol] 16 U/L Normal 13-39 [facility] Comment on above: Order Comment: Reaso n for Exam Acute kidney injury;Chronic kidney disease, stage 3b;Bilater Performed By: #### V [id number], MANDI, B12, MG, PHOS, CMP, FOL, FE and TIBC, URIC #### [facility] [address] Bilirubin [Mass/Vol] 0.5 mg/dL Normal 0.3-1.0 [facility] Comment on above: Order Comment: Reaso n for Exam Acute kidney injury;Chronic kidney disease, stage 3b;Bilater Performed By: #### V [id number], MANDI, B12, MG, PHOS, CMP, FOL, FE and TIBC, URIC #### [facility] [address] Calcium [Mass/Vol] 9.3 mg/dL Normal 8.6-10.3 [facility] Comment on above: Order Comment: Reaso n for Exam Acute kidney injury;Chronic kidney disease, stage 3b;Bilater Performed By: #### V [id number], MANDI, B12, MG, PHOS, CMP, FOL, FE and TIBC, URIC #### [facility] [address] Chloride [Moles/Vol] 107 mmol/L Normal 98-107 [facility] Comment on above: Order Comment: Reaso n for Exam Acute kidney injury;Chronic kidney disease, stage 3b;Bilater Performed By: #### V [id number], MANDI, B12, MG, PHOS, CMP, FOL, FE and TIBC, URIC #### [facility] [address] CO2 [Moles/Vol] 31.6 mmol/L High 21.0-31.0 [facility] Comment on above: Order Comment: Reaso n for Exam Acute kidney injury;Chronic kidney disease, stage 3b;Bilater Performed By: #### V [id number], MANDI, B12, MG, PHOS, CMP, FOL, FE and TIBC, URIC #### [facility] [address] Creatinine [Mass/Vol] 1.41 mg/dL High 0.70-1.30 [facility] Comment on above: Order Comment: Reaso n for Exam Acute kidney injury;Chronic kidney disease, stage 3b;Bilater Performed By: #### V [id number], MANDI, B12, MG, PHOS, CMP, FOL, FE and TIBC, URIC #### [facility] [address] GFR/1.73 sq M.predicted MDRD (S/P/Bld) [Vol rate/Area] 50.692 mL/min/{1.73_m2} Normal [facility] Comment on above: Order Comment: Reaso n for Exam Acute kidney injury;Chronic kidney disease, stage 3b;Bilater Performed By: #### V [id number], MANDI, B12, MG, PHOS, CMP, FOL, FE and TIBC, URIC #### [facility] [address] Globulin (S) [Mass/Vol] 2.8 g/dL Normal [facility] Comment on above: Order Comment: Reaso n for Exam Acute kidney injury;Chronic kidney disease, stage 3b;Bilater Performed By: #### V [id number], MANDI, B12, MG, PHOS, CMP, FOL, FE and TIBC, URIC #### [facility] [address] Glucose [Mass/Vol] 107 mg/dL High 70-100 [facility] Comment on above: Order Comment: Reaso n for Exam Acute kidney injury;Chronic kidney disease, stage 3b;Bilater Result Comment: [place] Glucose Reference Range is dependent on time and content of last meal. Glucose of more than 200 mg/dL in a nonstressed, ambulatory subject supports the diagnosis of Diabetes Mellitus. ADA recommended reference range Performed By: #### V [id number], MANDI, B12, MG, PHOS, CMP, FOL, FE and TIBC, URIC #### [facility] [address] Potassium [Moles/Vol] 4.5 mmol/L Normal 3.5-5.1 [facility] Comment on above: Order Comment: Reaso n for Exam Acute kidney injury;Chronic kidney disease, stage 3b;Bilater Performed By: #### V [id number], MANDI, B12, MG, PHOS, CMP, FOL, FE and TIBC, URIC #### [facility] [address] Protein [Mass/Vol] 7.0 g/dL Normal 6.4-8.9 [facility] Comment on above: Order Comment: Reaso n for Exam Acute kidney injury;Chronic kidney disease, stage 3b;Bilater Performed By: #### V [id number], MANDI, B12, MG, PHOS, CMP, FOL, FE and TIBC, URIC #### [facility] [address] Sodium [Moles/Vol] 143 mmol/L Normal 136-145 [facility] Comment on above: Order Comment: Reaso n for Exam Acute kidney injury;Chronic kidney disease, stage 3b;Bilater Performed By: #### V [id number], MANDI, B12, MG, PHOS, CMP, FOL, FE and TIBC, URIC #### [facility] [address] [place] [address] [place] Urea nitrogen [Mass/Vol] 27 mg/dL High 7-25 [facility] Comment on above: Order Comment: Reaso n for Exam Acute kidney injury;Chronic kidney disease, stage 3b;Bilater Performed By: #### V [id number], MANDI, B12, MG, PHOS, CMP, FOL, FE and TIBC, URIC #### [facility] [address] Creatinine [Mass/volume] in Serum or PlasmaOrdered By: Celia Ramos on 04-08-2023 Creatinine [Mass/Vol] 1.41 mg/dL 0.70-1.30 [facility] Creatinine [Mass/volume] in UrineOrdered By: Celia Ramos on 04-08-2023 Creatinine (U) [Mass/Vol] 90.0 mg/dL 14.0-26.0 [facility] Dipstick and Microscopicon 1 06-08-2022 Appearance (U) Cloudy Critically abnormal Clear [facility] Comment on above: Order Comment: Reaso n for Exam Acute kidney injury;Chronic kidney disease, stage 3b;Bilater Performed By: #### V [id number], MANDI, B12, MG, PHOS, CMP, FOL, FE and TIBC, URIC #### [facility] [address] Bacteria,Urine 4+ High None Seen [facility] Comment on above: Order Comment: Reaso n for Exam Acute kidney injury;Chronic kidney disease, stage 3b;Bilater Performed By: #### V [id number], MANDI, B12, MG, PHOS, CMP, FOL, FE and TIBC, URIC #### [facility] [address] Bilirubin,Urine Negative Normal Negative [facility] Comment on above: Order Comment: Reaso n for Exam Acute kidney injury;Chronic kidney disease, stage 3b;Bilater Performed By: #### V [id number], MANDI, B12, MG, PHOS, CMP, FOL, FE and TIBC, URIC #### [facility] [address] [place] [address] Color (U) Yellow Normal Yellow [facility] Comment on above: Order Comment: Reaso n for Exam Acute kidney injury;Chronic kidney disease, stage 3b;Bilater Performed By: #### V [id number], MANDI, B12, MG, PHOS, CMP, FOL, FE and TIBC, URIC #### [facility] [address] [place] [address] Glucose Ql (U) Normal Normal Normal [facility] Comment on above: Order Comment: Reaso n for Exam Acute kidney injury;Chronic kidney disease, stage 3b;Bilater Performed By: #### V [id number], MANDI, B12, MG, PHOS, CMP, FOL, FE and TIBC, URIC #### [facility] [address] [place] [address] Hyaline Casts,Urine 9-19 High 0-8 [facility] Comment on above: Order Comment: Reaso n for Exam Acute kidney injury;Chronic kidney disease, stage 3b;Bilater Result Comment: PERF ORMED BY: [place] [address] PATHOLOGIST UI DEVELOPER OREN OWEN M.D. Performed By: #### V [id number], MANDI, B12, MG, PHOS, CMP, FOL, FE and TIBC, URIC #### [facility] [address] Ketones Ql (U) Negative Normal Negative [facility] Comment on above: Order Comment: Reaso n for Exam Acute kidney injury;Chronic kidney disease, stage 3b;Bilater Performed By: #### V [id number], MANDI, B12, MG, PHOS, CMP, FOL, FE and TIBC, URIC #### [facility] [address] Leukocyte esterase Test strip Ql (U) 4+ High Negative [facility] Comment on above: Order Comment: Reaso n for Exam Acute kidney injury;Chronic kidney disease, stage 3b;Bilater Performed By: #### V [id number], MANDI, B12, MG, PHOS, CMP, FOL, FE and TIBC, URIC #### [facility] [address] Nitrite,Urine Positive High Negative [facility] Comment on above: Order Comment: Reaso n for Exam Acute kidney injury;Chronic kidney disease, stage 3b;Bilater Performed By: #### V [id number], MANDI, B12, MG, PHOS, CMP, FOL, FE and TIBC, URIC #### [facility] [address] Occult Blood,Urine 1+ High Negative [facility] Comment on above: Order Comment: Reaso n for Exam Acute kidney injury;Chronic kidney disease, stage 3b;Bilater Result Comment: PERF ORMED BY: [place] [address] PATHOLOGIST UI DEVELOPER OREN OWEN M.D. Performed By: #### V [id number], MANDI, B12, MG, PHOS, CMP, FOL, FE and TIBC, URIC #### [facility] [address] [place] [address] pH (U) 7.0 [pH] Normal 5.0-9.0 [facility] Comment on above: Order Comment: Reaso n for Exam Acute kidney injury;Chronic kidney disease, stage 3b;Bilater Performed By: #### V [id number], MANDI, B12, MG, PHOS, CMP, FOL, FE and TIBC, URIC #### [facility] [address] Protein,Urine Trace High Negative [facility] Comment on above: Order Comment: Reaso n for Exam Acute kidney injury;Chronic kidney disease, stage 3b;Bilater Performed By: #### V [id number], MANDI, B12, MG, PHOS, CMP, FOL, FE and TIBC, URIC #### [facility] [address] [place] [address] RBC,Urine 3-4 Normal 0-4 [facility] Comment on above: Order Comment: Reaso n for Exam Acute kidney injury;Chronic kidney disease, stage 3b;Bilater Performed By: #### V [id number], MANDI, B12, MG, PHOS, CMP, FOL, FE and TIBC, URIC #### [facility] [address] [place] [address] Specificy [place],Urine 1.017 Normal 1.00 1-1.03 0 [facility] Comment on above: Order Comment: Reaso n for Exam Acute kidney injury;Chronic kidney disease, stage 3b;Bilater Performed By: #### V [id number], MANDI, B12, MG, PHOS, CMP, FOL, FE and TIBC, URIC #### [facility] [address] [place] [address] Squamous Epithelial Cell,Urine 0-1 Normal 0-2 [facility] Comment on above: Order Comment: Reaso n for Exam Acute kidney injury;Chronic kidney disease, stage 3b;Bilater Performed By: #### V [id number], MANDI, B12, MG, PHOS, CMP, FOL, FE and TIBC, URIC #### [facility] [address] Urobilinogen,Urine Normal Normal Normal [facility] Comment on above: Order Comment: Reaso n for Exam Acute kidney injury;Chronic kidney disease, stage 3b;Bilater Performed By: #### V [id number], MANDI, B12, MG, PHOS, CMP, FOL, FE and TIBC, URIC #### [facility] [address] WBC,Urine 50-100 High 0-4 [facility] Comment on above: Order Comment: Reaso n for Exam Acute kidney injury;Chronic kidney disease, stage 3b;Bilater Performed By: #### V [id number], MANDI, B12, MG, PHOS, CMP, FOL, FE and TIBC, URIC #### [facility] [address] Erythrocyte distribution wid th Auto (RBC) [Ratio]Ordered By: Celia Ramos on 04-08-2023 Erythrocyte distribution width (RBC) [Ratio] 15.7 % 12.0-14.8 [facility] Ferritinon 04-08-2023 Ferritin [Mass/Vol] 34.1 ng/mL Normal 23.9-336.2 [facility] Comment on above: Order Comment: Reaso n for Exam Acute kidney injury;Chronic kidney disease, stage 3b;Bilater Performed By: #### V [id number], MANDI, B12, MG, PHOS, CMP, FOL, FE and TIBC, URIC #### [facility] [address] [place] [address] Ferritin [Mass/volume] in Se rum or PlasmaOrdered By: Celia Ramos on 04-08-2023 Ferritin [Mass/Vol] 34.1 ng/mL 23.9-336.2 [facility] Folateon 04-08-2023 Folate 34.0 ng/mL Normal >5.9 [facility] Comment on above: Order Comment: Reaso n for Exam Acute kidney injury;Chronic kidney disease, stage 3b;Bilater Result Comment: Caryn te reference range: >5.9 ng/ml The WHO technical consultation on folate and vitamin b12 deficiencies has determined that folate concentrations less than 4 ng/ml are considered deficient. Performed By: #### V [id number], MANDI, B12, MG, PHOS, CMP, FOL, FE and TIBC, URIC #### [facility] [address] Folate [Mass/volume] in Seru m or PlasmaOrdered By: Celia Ramos on 04-08-2023 Folate [Mass/Vol] 34.0 ng/mL >5.9 [facility] Comment on above: Folate reference ran ge: >5.9 ng/mlThe WHO technical consultation on folate and vitamin [id number] has determined that folate concentrations lessthan 4 ng/ml are considered deficient. Globulin Calc (S) [Mass/Vol] Ordered By: Celia Ramos on 04-08-2023 Globulin (S) [Mass/Vol] 2.8 g/dL [facility] Glucose [Mass/volume] in Ser um or PlasmaOrdered By: Celia Ramos on 04-08-2023 Glucose [Mass/Vol] 107 mg/dL 70-100 [facility] Comment on above: ADA recommended refe rence rangeRandom Glucose Reference Range is dependent on time and content of last meal. Glucose of more than 200 mg/dL in a nonstressed, ambulatory subject supports the diagnosis of Diabetes Mellitus. Hematocrit Auto (Bld) [Volum e fraction]Ordered By: Celia Ramos on 04-08-2023 Hematocrit (Bld) [Volume fraction] 43.8 % 38.8-50.0 [facility] Hemoglobin [Mass/volume] in BloodOrdered By: Celia Ramos on 04-08-2023 Hemoglobin (Bld) [Mass/Vol] 14.3 g/dL 13.0-17.0 [facility] Hemogram CBC Without Diffon 04-08-2023 Erythrocyte distribution width (RBC) [Ratio] 15.7 % High 12.0-14.8 [facility] Comment on above: Order Comment: Reaso n for Exam Acute kidney injury;Chronic kidney disease, stage 3b;Bilater Performed By: #### V [id number], MANDI, B12, MG, PHOS, CMP, FOL, FE and TIBC, URIC #### [address] Hematocrit (Bld) [Volume fraction] 43.8 % Normal 38.8-50.0 [facility] Comment on above: Order Comment: Reaso n for Exam Acute kidney injury;Chronic kidney disease, stage 3b;Bilater Performed By: #### V [id number], MANDI, B12, MG, PHOS, CMP, FOL, FE and TIBC, URIC #### [address] Hemoglobin (Bld) [Mass/Vol] 14.3 g/dL Normal 13.0-17.0 [facility] Comment on above: Order Comment: Reaso n for Exam Acute kidney injury;Chronic kidney disease, stage 3b;Bilater Performed By: #### V [id number], MANDI, B12, MG, PHOS, CMP, FOL, FE and TIBC, URIC #### [address] MCH (RBC) [Entitic mass] 27.3 pg Low 27.5-35.2 [facility] Comment on above: Order Comment: Reaso n for Exam Acute kidney injury;Chronic kidney disease, stage 3b;Bilater Performed By: #### V [id number], MANDI, B12, MG, PHOS, CMP, FOL, FE and TIBC, URIC #### [address] MCV (RBC) [Entitic vol] 83.8 fL Normal 83.5-101 [facility] Comment on above: Order Comment: Reaso n for Exam Acute kidney injury;Chronic kidney disease, stage 3b;Bilater Performed By: #### V [id number], MANDI, B12, MG, PHOS, CMP, FOL, FE and TIBC, URIC #### [address] Mean Corpuscular HGB Conc 32.6 g/dL Normal 32.5-35.6 [facility] Comment on above: Order Comment: Reaso n for Exam Acute kidney injury;Chronic kidney disease, stage 3b;Bilater Performed By: #### V [id number], MANDI, B12, MG, PHOS, CMP, FOL, FE and TIBC, URIC #### [facility] [address] [place] [address] Platelet mean volume (Bld) [Entitic vol] 8.6 fL Normal 6.6-10.1 [facility] Comment on above: Order Comment: Reaso n for Exam Acute kidney injury;Chronic kidney disease, stage 3b;Bilater Result Comment: PERF ORMED BY: [place] [address] PATHOLOGIST UI DEVELOPER OREN OWEN M.D. Performed By: #### V [id number], MANDI, B12, MG, PHOS, CMP, FOL, FE and TIBC, URIC #### [address] Platelets (Bld) [#/Vol] 201 10*3/uL Normal 150-450 [facility] Comment on above: Order Comment: Reaso n for Exam Acute kidney injury;Chronic kidney disease, stage 3b;Bilater Performed By: #### V [id number], MANDI, B12, MG, PHOS, CMP, FOL, FE and TIBC, URIC #### [address] RBC (Bld) [#/Vol] 5.22 10*6/uL Normal 3.90-5.60 [facility] Comment on above: Order Comment: Reaso n for Exam Acute kidney injury;Chronic kidney disease, stage 3b;Bilater Performed By: #### V [id number], MANDI, B12, MG, PHOS, CMP, FOL, FE and TIBC, URIC #### [address] WBC (Bld) [#/Vol] 8.4 10*3/uL Normal 4.1-10.5 [facility] Comment on above: Order Comment: Reaso n for Exam Acute kidney injury;Chronic kidney disease, stage 3b;Bilater Performed By: #### V [id number], MANDI, B12, MG, PHOS, CMP, FOL, FE and TIBC, URIC #### [facility] [address] [place] [id number] [place] Iron [Mass/volume] in Serum or PlasmaOrdered By: Celia Ramos on 04-08-2023 Iron [Mass/Vol] 53 ug/dL 50-212 [facility] Iron and TIBC Profileon 03-26 % Iron Saturation 14.3 % Low 20-50 [facility] Comment on above: Order Comment: Reaso n for Exam Acute kidney injury;Chronic kidney disease, stage 3b;Bilater Performed By: #### V [id number], MANDI, B12, MG, PHOS, CMP, FOL, FE and TIBC, URIC #### [facility] [address] Iron [Mass/Vol] 53 ug/dL Normal 50-212 [facility] Comment on above: Order Comment: Reaso n for Exam Acute kidney injury;Chronic kidney disease, stage 3b;Bilater Performed By: #### V [id number], MANDI, B12, MG, PHOS, CMP, FOL, FE and TIBC, URIC #### [facility] [address] [place] [id number] [facility] Total Iron Binding Capacity 370 ug/dL Normal 255-450 [facility] Comment on above: Order Comment: Reaso n for Exam Acute kidney injury;Chronic kidney disease, stage 3b;Bilater Performed By: #### V [id number], MANDI, B12, MG, PHOS, CMP, FOL, FE and TIBC, URIC #### [facility] [address] [place] [id number] [place] Transferrin [Mass/Vol] 264 mg/dL Normal 203-362 [facility] Comment on above: Order Comment: Reaso n for Exam Acute kidney injury;Chronic kidney disease, stage 3b;Bilater Performed By: #### V [id number], MANDI, B12, MG, PHOS, CMP, FOL, FE and TIBC, URIC #### [facility] [address] [place] [id number] [place] Iron binding capacity [Mass/ volume] in Serum or PlasmaOrdered By: Celia Ramos on 04-08-2023 Iron binding capacity [Mass/Vol] 370 ug/dL 255-450 [facility] Iron saturation [Mass Fracti on] in Serum or PlasmaOrdered By: Celia Ramos on 04-08-2023 Iron saturation [Mass fraction] 14.3 % 20-50 [facility] Ketones Auto test strip (U) [Mass/Vol]Ordered By: Celia Ramos on 04-08-2023 Ketones (U) [Mass/Vol] Negative Negative [facility] - UrinalysisOrder ed By: Celia Ramos on 04-08-2023 Hyaline casts LM Ql (Urine sed) 02-11 [LPF] 0-8 [facility] Leukocytes [#/volume] correc phil for nucleated erythrocytes in Blood by Automated counOrdered By: Ceila Ramos on 04-08-2023 WBC corrected for nucl RBC Auto (Bld) [#/Vol] 8.4 10*3/uL 4.1-10.5 [facility] Lipid Panelon 04-08-2023 Cholesterol [Mass/Vol] 107 mg/dL Low 140-200 [facility] Comment on above: Result Comment: Chol less than 200 mg/dl low risk Chol 201-239 mg/dl borderline risk Chol 240 mg/dl and greater high risk Performed By: #### V [id number], MANDI, B12, MG, PHOS, CMP, FOL, FE and TIBC, URIC #### [facility] [address] [place] [address] [place] Cholesterol in HDL [Mass/Vol] 34 mg/dL Normal 23-92 [facility] Comment on above: Result Comment: HDL CHOL ATP-III CLASSIFICATION Cardiovascular Risk HDL > or equal to 60 mg/dL LOW HDL < 40 mg/dL HIGH Performed By: #### V [id number], MANDI, B12, MG, PHOS, CMP, FOL, FE and TIBC, URIC #### [facility] [address] Cholesterol.total/Sonya sterol in HDL [Mass ratio] 3.1 {ratio} Normal <5.0 [facility] Comment on above: Result Comment: PERF ORMED BY: [place] [address] PATHOLOGIST UI DEVELOPER OREN OWEN M.D. Performed By: #### V [id number], MANDI, B12, MG, PHOS, CMP, FOL, FE and TIBC, URIC #### [facility] [address] LDL Cholesterol,Calculated 47 mg/dL Normal 0-100 [facility] Comment on above: Result Comment: LDL ATP III CLASSIFICATION LDL less than 100 mg/dL Optimal LDL 100-129 mg/dL Near or above optimal LDL 130-159 mg/dL Borderline high LDL 160-189 mg/dL High LDL greater than 189 mg/dL Very high Performed By: #### V [id number], MANDI, B12, MG, PHOS, CMP, FOL, FE and TIBC, URIC #### [address] Triglyceride w/Reflex 131 mg/dL Normal 0-149 [facility] Comment on above: Result Comment: TRIG ATP III CLASSIFICATION TRIG less than 150 mg/dL Normal TRIG 150-199 mg/dL Borderline high TRIG 200-500 mg/dL High TRIG greater than 500 mg/dL Very high Standard traceable to the Center for Disease Conrtrol and Prevention (CDC) test method. Performed By: #### V [id number], MANDI, B12, MG, PHOS, CMP, FOL, FE and TIBC, URIC #### [facility] [address] VLDL CHOLESTEROL 26 mg/dL Normal [facility] Comment on above: Performed By: #### V [id number], MANDI, B12, MG, PHOS, CMP, FOL, FE and TIBC, URIC #### [address] MCH Auto (RBC) [Entitic mass ]Ordered By: Celia Ramos on 04-08-2023 MCH (RBC) [Entitic mass] 27.3 pg 27.5-35.2 [facility] MCHC Auto (RBC) [Mass/Vol]Or dered By: Celia Ramos on 04-08-2023 MCHC (RBC) [Mass/Vol] 32.6 g/dL 32.5-35.6 [facility] MCV Auto (RBC) [Entitic vol] Ordered By: Celia Ramos on 04-08-2023 MCV (RBC) [Entitic vol] 83.8 fL 83.5-101 [facility] Magnesiumon 04-08-2023 Magnesium [Mass/Vol] 2.2 mg/dL Normal 1.9-2.7 [facility] Comment on above: Order Comment: Reaso n for Exam Acute kidney injury;Chronic kidney disease, stage 3b;Bilater Performed By: #### V [id number], MANDI, B12, MG, PHOS, CMP, FOL, FE and TIBC, URIC #### [facility] [address] [place] [address] [place] Magnesium [Mass/volume] in S marium or PlasmaOrdered By: Celia Ramos on 04-08-2023 Magnesium [Mass/Vol] 2.2 mg/dL 1.9-2.7 [facility] Nitrite Test strip Ql (U)Ord ered By: Celia Ramos on 04-08-2023 Nitrite Ql (U) Positive Negative [facility] No Panel InformationOrdered By: Celia Ramos on 04-08-2023 Estimated GFR (CKD-EPI) 50.692 mL/Min [facility] Creatinine Clearance (Chem N/A [facility] Parathyrin.intact [Mass/volu me] in Serum or PlasmaOrdered By: Celia Ramos on 04-08-2023 Parathyrin.intact [Mass/Vol] 76.6 pg/mL [facility] Parathyroid Hormone Intacton 04-08-2023 Parathyroid Hormone Intact 76.6 pg/mL Normal [facility] Comment on above: Order Comment: Reaso n for Exam Acute kidney injury;Chronic kidney disease, stage 3b;Bilater Result Comment: PERF ORMED BY: [facility] [address] [place] [address] PATHOLOGIST UI DEVELOPER OREN OWEN M.D. Performed By: #### V [id number], MANDI, B12, MG, PHOS, CMP, FOL, FE and TIBC, URIC #### [facility] [address] [place] [address] [place] Phosphate [Mass/volume] in S marium or PlasmaOrdered By: Celia Ramos on 04-08-2023 Phosphate [Mass/Vol] 2.8 mg/dL 2.5-4.5 [facility] Phosphoruson 04-08-2023 Phosphate [Mass/Vol] 2.8 mg/dL Normal 2.5-4.5 [facility] Comment on above: Order Comment: Reaso n for Exam Acute kidney injury;Chronic kidney disease, stage 3b;Bilater Performed By: #### V [id number], MANDI, B12, MG, PHOS, CMP, FOL, FE and TIBC, URIC #### [facility] [address] [place] [address] [place] Platelet mean volume Auto (B ld) [Entitic vol]Ordered By: Celia Ramos on 04-08-2023 Platelet mean volume (Bld) [Entitic vol] 8.6 fL 6.6-10.1 [facility] Platelets Auto (Bld) [#/Vol] Ordered By: Celia Ramos on 04-08-2023 Platelets (Bld) [#/Vol] 201 10*3/uL 150-450 [facility] Potassium [Moles/volume] in Serum or PlasmaOrdered By: Celia Ramos on 04-08-2023 Potassium [Moles/Vol] 4.5 mmol/L 3.5-5.1 [facility] Protein Auto test strip (U) [Mass/Vol]Ordered By: Celia Ramos on 04-08-2023 Protein (U) [Mass/Vol] Trace mg/dL Negative [facility] Protein Creat Ratio Ur Rando mon 04-08-2023 Creatinine, Urine (Random) 90.0 mg/dL High 14.0-26.0 [facility] Comment on above: Order Comment: Reaso n for Exam Acute kidney injury;Chronic kidney disease, stage 3b;Bilater Performed By: #### V [id number], MANDI, B12, MG, PHOS, CMP, FOL, FE and TIBC, URIC #### [facility] [address] [place] [phone] [place] Protein (U) [Mass/Vol] 30 mg/dL High 0-9 [facility] Comment on above: Order Comment: Reaso n for Exam Acute kidney injury;Chronic kidney disease, stage 3b;Bilater Performed By: #### V [id number], MANDI, B12, MG, PHOS, CMP, FOL, FE and TIBC, URIC #### [facility] [address] Urine Protein/Creatinine Ratio 333 mg/g{Cre} High 0-200 [facility] Comment on above: Order Comment: Reaso n for Exam Acute kidney injury;Chronic kidney disease, stage 3b;Bilater Result Comment: PERF ORMED BY: [place] [address] PATHOLOGIST UI DEVELOPER OREN OWEN M.D. Performed By: #### V [id number], MANDI, B12, MG, PHOS, CMP, FOL, FE and TIBC, URIC #### [facility] [address] Protein [Mass/volume] in Ser um or PlasmaOrdered By: Celia Ramos on 04-08-2023 Protein [Mass/Vol] 7.0 g/dL 6.4-8.9 [facility] Protein [Mass/volume] in Uri neOrdered By: Celia Ramos on 04-08-2023 Protein (U) [Mass/Vol] 30 mg/dL 0-9 [facility] RBC Auto (Bld) [#/Vol]Ordere d By: Celia Ramos on 04-08-2023 RBC (Bld) [#/Vol] 5.22 10*6/uL 3.90-5.60 [facility] Serum or plasma albumin/glob ulin mass ratioOrdered By: Celia Ramos on 04-08-2023 Albumin/Globulin [Mass ratio] 1.5 {ratio} [facility] Serum or plasma anion gap de terminationOrdered By: Celia Ramos on 04-08-2023 Anion gap [Moles/Vol] 8.9 mmol/L 6.0-15.0 [facility] Serum or plasma high density lipoprotein (HDL) cholesterol measurementOrdered By: Teo Stokes on 04-08-2023 Cholesterol in HDL [Mass/Vol] 34 mg/dL 23-92 [facility] Comment on above: HDL CHOL ATP-III CLA SSIFICATION Cardiovascular RiskHDL > or equal to 60 mg/dL LOWHDL < 40 mg/dL HIGH Serum or plasma total choles terol/high density lipoprotein (HDL) cholesterol mass ratOrdered By: Teo Stokes on 04-08-2023 Cholesterol.total/Sonya sterol in HDL [Mass ratio] 3.1 {ratio} <5.0 [facility] Sodium [Moles/volume] in Ser um or PlasmaOrdered By: Celia Ramos on 04-08-2023 Sodium [Moles/Vol] 143 mmol/L 136-145 [facility] Specific gravity Auto test s trip (U) [Rel density]Ordered By: Celia Ramos on 04-08-2023 Specific gravity (U) [Rel density] 1.017 1.001-1.03 0 [facility] Squamous epithelial cells de tection in urine sediment by light microscopyOrdered By: Celia Ramos on 04-08-2023 Epithelial cells.squamous LM Ql (Urine sed) 0-1 [HPF] 0-2 [facility] Transferrin [Mass/volume] in Serum or PlasmaOrdered By: Celia Ramos on 04-08-2023 Transferrin [Mass/Vol] 264 mg/dL 203-362 [facility] Triglyceride [Mass/volume] i n Serum or PlasmaOrdered By: Teo Stokes on 04-08-2023 Triglyceride [Mass/Vol] 131 mg/dL 0-149 [facility] Comment on above: TRIG ATP III CLASSIF ICATIONTRIG less than 150 mg/dL NormalTRIG 150-199 mg/dL Borderline highTRIG 200-500 mg/dL High TRIG greater than 500 mg/dL Very highStandard traceable to the Center for Disease Conrtrol and Prevention (CDC) test method. Urate [Mass/volume] in Serum or PlasmaOrdered By: Celia Ramos on 04-08-2023 Urate [Mass/Vol] 6.0 mg/dL 4.4-7.6 [facility] Urea nitrogen [Mass/volume] in Serum or PlasmaOrdered By: Celia Ramos on 04-08-2023 Urea nitrogen [Mass/Vol] 27 mg/dL 7- [facility] Uric Acidon 04-08-2023 Urate [Mass/Vol] 6.0 mg/dL Normal 4.4-7.6 [facility] Comment on above: Order Comment: Reaso n for Exam Acute kidney injury;Chronic kidney disease, stage 3b;Bilater Performed By: #### V [id number], MANDI, B12, MG, PHOS, CMP, FOL, FE and TIBC, URIC #### [facility] [address] Urine Cultureon 04-08-2023 Bacteria identified Cx Nom (U) ORGANISM: Klebsiella oxytoca (O:KLEOXY) [place] Count >100,000 ORGANISM: Morganella morganii (O:MORMOR) [place] Count >100,000 Aerobic RITESH Charge (NMIC56) SUSCEPTIBILITY [...] RESISTANT TO ALL B-LACTAM DRUGS. PERFORMED BY: [place] [address] PATHOLOGIST UI DEVELOPER OREN OWEN M.D. [facility] Comment on above: Performed By: #### V [id number], MANDI, B12, MG, PHOS, CMP, FOL, FE and TIBC, URIC #### [facility] [address] [place] [address] Urine bacteria detection by automated methodOrdered By: Celia Ramos on 04-08-2023 Bacteria Auto Ql (U) 4+ None Seen [facility] Urine clarity by refractomet ry automatedOrdered By: Celia Ramos on 04-08-2023 Clarity Refractometry automated (U) Cloudy Clear [facility] Urine glucose measurement by automated test strip (mass/volume)Ordered By: Celia Ramos on 04-08-2023 Glucose Auto test strip (U) [Mass/Vol] Normal mg/dL Normal [facility] Urine hemoglobin detection b y automated test stripOrdered By: Celia Ramos on 04-08-2023 Hemoglobin Auto test strip Ql (U) 1+ Negative [facility] Urine leukocyte esterase det ection by automated test stripOrdered By: Celia Ramos on 04-08-2023 Leukocyte esterase Auto test strip Ql (U) 4+ Negative [facility] Urine protein/creatinine rat ioOrdered By: Celia Ramos on 04-08-2023 Protein/Creatinine (U) [Ratio] 333 mg/g{Cre} 0-200 [facility] Urobilinogen Auto test strip (U) [Mass/Vol]Ordered By: Cleia Ramos on 04-08-2023 Urobilinogen (U) [Mass/Vol] Normal mg/dL Normal [facility] Vitamin B12on 04-08-2023 Cobalamin (Vitamin B12) [Mass/Vol] 301 pg/mL Normal 180-914 [facility] Comment on above: Order Comment: Reaso n for Exam Acute kidney injury;Chronic kidney disease, stage 3b;Bilater Performed By: #### V [id number], MANDI, B12, MG, PHOS, CMP, FOL, FE and TIBC, URIC #### [address] Vitamin B12 ser/plasOrdered By: Celia Ramos on 04-08-2023 Cobalamin (Vitamin B12) [Mass/Vol] 301 pg/mL 180-914 [facility] Vitamin D 25 Hydroxy Totalon 04-08-2023 Vitamin D 25 Hydroxy Total 37.5 ng/mL Normal 30-100 [facility] Comment on above: Order Comment: Reaso n for Exam Acute kidney injury;Chronic kidney disease, stage 3b;Bilater Result Comment: CHINO MIN D STATUS 25([place])VITAMIN D RANGE (ng/mL) Deficient <20 Insufficient 20 to <30 Sufficient 30 to 100 Reference: Sixto MF,Federico NC, Jeni-Brandon LESLIE, et al. Evaluation,treatment, and prevention of vitamin D deficiency; an Endocrine Society clinical practice guideline. JCEM. 2010; 96(7):1911-30. PERFORMED BY: [place] [address] PATHOLOGIST UI DEVELOPER OREN OWEN M.D. Performed By: #### V [id number], MANDI, B12, MG, PHOS, CMP, FOL, FE and TIBC, URIC #### [facility] [address] [place] [id number] [facility] Vitamin D+Metabolites [Mass/ volume] in Serum or PlasmaOrdered By: Celia Ramos on 04-08-2023 Vitamin D+Metabolites [Mass/Vol] 37.5 ng/mL 30-100 [facility] Comment on above: VITAMIN D STATUS 25( [place])VITAMIN D RANGE (ng/mL) Deficient <20 Insufficient 20 to <30Sufficient 30 to 100Reference: Sixto MF,Federico MATA, Palomo LESLIE, et al. Evaluation,treatment, and prevention of vitamin D deficiency; an Endocrine Society clinical practice guideline. JCEM. 2010; 96(7):1911-30. pH Auto test strip (U)Ordere d By: Celia Ramos on 04-08-2023 pH (U) 7.0 [pH] 5.0-9.0 [facility] UroVysion Fish and Urine Cyt o ([facility])on 03-18-2023 UVFISH & UC Diagnosis Info Invalid Interpretation Code [facility] Comment on above: Result Comment: A:Ur [...] correlated with cytology and cystoscopy results.* CPT 94348, 72808. 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 Electronically signed by : on: 03/18/2023 13:35:55 Performed By: #### 1 [id number] ####[facility] [id number] [place] [id number] Reminderson 03-14-2023 Reminders - From: Dana Rivas To: EU - Recalls Arlene; Cc: Dana Rivas; Sent: 03/14/2023 08:18:18 EDT Show up: 07/25/2023 08:18:00 EST Subject: cysto/fish/cytol Due Date/Time: 08/11/2023 08:18:00 EDT Reminder/Recall Patient is due in August 2023 for 3 month cysto/fish/cytol Normal [facility] Consent for Procedure/Surger yon 03-12-2023 Consent for Procedure/Surgery [id number] [facility] Ambulatory Visit Summaryon 1 Ambulatory Visit [...] [facility] [address], [place] [address]- Medications What How Much When Instructions Unchanged [...] kidney and (more content not included)... Normal [facility] Patient Educationon 03-11-20 23 Patient Education [...] including vitamins, herbs, eye drops, creams, and zqdr-kdq-uvuqktu medicines. ? Any problems you or family [...] tells you to take them. ? Taking [id number] medicines, vitamins, herbs, and supplements. Surgery safety [...] health care (more content not included)... Normal [facility] UroVysion Fish and Urine Cyt o ([facility])on 03-11-2023 [facility] Method of Extraction Bladder Urine Normal [facility] Comment on above: Performed By: #### 1 [id number] ####[facility] [address] [place] [address] [facility] Number of Jars 1 Invalid Interpretation Code [facility] Comment on above: Performed By: #### 1 [id number] ####[facility] [address] [place] [address] [facility] Specimen Bladder Wash Normal [facility] Comment on above: Performed By: #### 1 [id number] ####[facility] [address] [place] [address] [facility] Type of Service Technical Only Normal [facility] Comment on above: Performed By: #### 1 [id number] ####[facility] [address] [place] [address] Urology Office/Clinic Noteon 03-11-2023 Urology Office/Clinic Note [...] Retention of urine, unspecified) Pt presented to [facility] ER on 09/15/22 due to catheter clogged. [...] [facility] [address], [place] [address]- Additional Instructions: Sched cysto/FISH/Cytol/BT check Patient Education Benign Prostatic Hyperplasia I, Dalila Lala , personally scribed for Dr. Samuels on 03/11/2023 14:20:53. Electronically signed by emma Lala on (more content not included)... Normal [facility] Comment on above: Result Comment: Elec [...] TABLET DAILY Tobacco Use Screening; Status:Complete; Done: [id number] You need to stop smoking. Though it is not easy, more than half of all adult smokers have quit. We encourage you to write down all the reasons you should quit smoking and set a quit date for yourself. Ask us how we can help. You may also call 9-688-EFAM-NOW for free resources and assistance.; Status:Complete - Retrospective Authorization; Done: [id number] Tobacco Use Screening; Status:Complete; Done: [id number] Patient Instructions Please bring all medicines, vitamins, [...] negative for complaint. Vitals Vital Signs Recorded: [id number] 09:57AM Heart Rate72, L Radial Jsufujul264, LUE, Sitting Ezlvnhogy36, LUE, Sitting Height6 ft 2 in Zuhlbd955 lb BMI Pzpnhvyqef20.35 kg/m2 BSA Calculat (more content not included)... Normal [facility] Tobacco Screening.on 023 Fall risk assessment a) No falls within the last year -[facility] [employer] 250 DO Work Phone: Tobacco use status [facility] a) Yes [facility] [employer] 250 DO Work Phone: Tobacco Screening. Yes [facility] [employer] 250 DO Work Phone: IntraOperative Documentson 0 01-13-2023 IntraOperative Documents [id number]#1.00CD:127 Normal [facility] Consent for Procedure/Surger yon 01-07-2023 Consent for Procedure/Surgery [id number]#1.00CD:127 Normal [facility] IntraOperative Documentson 0 01-07-2023 IntraOperative Documents [id number]#1.00CD:127 Normal [facility] Consent for Treatmenton 080 Consent for Treatment [id number]#1.00CD:127 Normal [facility] UroVysion Fish and Urine Cyt o ([facility])on 12-17-2022 UVFISH & UC Diagnosis Info Invalid Interpretation Code [facility] Comment on above: Result Comment: A:Ur [...] correlated with cytology and cystoscopy results.* CPT 95876, 00123. Microscopic Notes - Microscopic Notes - Abnormal cells 9p21 deletions: Abnormal cells aneploid events: Total cells analyzed: 101 Hematuria: Gross Description Site ID:A color No Color fixative Alcohol Received 60 mls of clear no color fluid with the patient's name and, Urine on the vial. Electronically signed by : on: 12/17/2022 09:12:29 Performed By: #### 1 [id number] ####[facility] [address] [place] [address] Urology Office/Clinic Noteon 12-16-2022 Urology Office/Clinic Note [...] Retention of urine, unspecified) Pt presented to [facility] ER on 09/15/22 due to catheter clogged. [...] Urology [address], [place] [address]- Additional Instructions: Follow up after urodynamics for [...] emphysema Dem (more content not included)... Normal [facility] Comment on above: Result Comment: Elec tronically Signed By: Dana Rivas\.gonsalo\Date and Time Signed: 12/16/22 11:30 EDT Consent for Procedure/Surger yon 12-11-2022 Consent for Procedure/Surgery [id number]#1.00CD:127 Normal [facility] Ambulatory Visit Summaryon 0 12-10-2022 Ambulatory [...] Where: [facility] [address] [place] [address]- Medications What How Much When Instructions Unchanged [...] with r (more content not included)... Normal [facility] Patient Educationon 12-11-19 Patient Education Oncology [...] if anything looks unusual. Men with a jacxbe-nlrm-wolils risk for skin cancer may want to see a document improvement specialist (digital content coordinator) for an annual body check. What are the benefits of screening? Cancer screening is done to look for cancer in the very early stages, before it spreads and becomes harder to treat and before you would start to notice symptoms. Finding cancer early improves the chances of successful treatment. It ma (more content not included)... Normal [facility] UroVysion Fish and Urine Cyt o ([facility])on 12-10-2022 [facility] Method of Extraction Bladder Wash Normal [facility] Comment on above: Performed By: #### 1 [id number] ####[facility] [address] [place] [address] [facility] Number of Jars 1 Invalid Interpretation Code [facility] Comment on above: Performed By: #### 1 [id number] ####[facility] [address] [place] [address] [facility] Specimen Urine Normal [facility] Comment on above: Performed By: #### 1 [id number] ####[facility] [address] [place] [address] [facility] Type of Service Technical Only Normal [facility] Comment on above: Performed By: #### 1 [id number] ####[facility] [address] [place] [address] Urology Office/Clinic Noteon 09-19-2022 Urology Office/Clinic Note [...] urothelial carcinoma, low grade. Pt presented to [facility] ER on 09/15/22 due to catheter clogged. [...] order Local anesthesia. Prophy abx sent to [facility] [place]. 2. 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 Pt presented to [facility] ER on 09/15/22 due to catheter clogged. [...] [facility] [address], [place] [address]- Additional Instructions: schedule urocuff, 3 mos cysto/bt [...] bladder tumor ( (more content not included)... [facility] Comment on above: Result Comment: Elec [...] 10:00 AM EDT Where: [facility]ULT[facility]INEon 09-18-2022 CULTURE URINE Isolate 1 Pseudomonas aeruginosa >100,000 cfu/mL of ORGANISM 1 Pseudomonas aeruginosa ANTIBIOTIC M.I.C RX STATUS Piperacillin/Tazobactam <=4 S F Ceftazidime <=1 S F Imipenem 2 S F Amikacin <=2 S F Gentamicin 2 S F Tobramycin <=1 S F Ciprofloxacin <=0.25 S F Levofloxacin <=0.12 S F Normal [facility] Comment on above: Performed By: #### U RTPCR #### [facility] [address] [address] [address] Karen Pierce Patient Educationon 09-19-19 23 [...] Follow these instructions at home: ? Take npmq-kvv-uhwqlug and prescription medicines only as told by [...] important. Where to find more information ? [place] [employer] (ACS): cancer.org ? National Cancer [place] (NCI): cancer.gov Contact a health care provider [...] have wi (more content not included)... Normal [facility] CALCULI, URINARYon 3 2,8 Dihydroxyadenine Normal [facility] Comment on above: Performed By: #### U A #### [facility] [address] [place] [address] Dr. Karen Pierce Ammonium Acid Urate Normal [facility] Comment on above: Performed By: #### U A #### [facility] [address] [place] [address] Dr. Karen Pierce Bilirubin Ql (U) Normal [facility] Comment on above: Performed By: #### U A #### [facility] [address] [address] [address] Karen Pierce Ca Oxalate Dihydrate Normal [facility] Comment on above: Performed By: #### U A #### [facility] [address] [place] [address] Dr. Karen Pierce CaHPO4 (Brushite) Normal [facility] Comment on above: Performed By: #### U A #### [facility] [address] [address] [address] Karen Pierce Calcium Bilirubinate Normal [facility] Comment on above: Performed By: #### U A #### [facility] [address] [address] [address] Karen Pierce Calcium Carbonate Normal [facility] Comment on above: Performed By: #### U A #### [facility] [address] [place] [address] Dr. Karen Pierce Calcium Oxalate Monohydrate 100 % Normal [facility] Comment on above: Performed By: #### U A #### [facility] [address] [address] [address] Karen Pierce Calcium Palmitate [facility] Comment on above: Performed By: #### U A #### [facility] [address] [address] [address] Karen Pierce Calcium Phosphate [facility] Comment on above: Performed By: #### U A #### [facility] [address] [address] [address] Karen Pierce Calcium Stearate [facility] Comment on above: Performed By: #### U A #### [facility] [address] [address] [address] Karen Pierce Carbonate Apatite [facility] Comment on above: Performed By: #### U A #### [facility] [address] [place] [address] Dr. Karen Pierce Cellular Material [facility] Comment on above: Performed By: #### U A #### [facility] [address] [address] [address] Karen Pierce Cholesterol [facility] Comment on above: Performed By: #### U A #### [facility] [address] [address] [address] Karen Pierce Color (U) Brown [facility] Comment on above: Performed By: #### U A #### [facility] [address] [place] [address] Dr. Karen Pierce Comment [facility] Comment on above: Performed By: #### U A #### [facility] [address] [place] [address] Dr. Karen Pierce Comment: Comment Normal [facility] Comment on above: Result Comment: Phys carmelo questions regarding Calculi Analysis contact [facility] at: [phone]. Performed By: #### U A #### [facility] [address] [place] [address] Dr. Karen Pierce Composition Comment [facility] Comment on above: Result Comment: Perc entage (Represents the % composition) Performed By: #### U A #### [facility] [address] [place] [address] Dr. Karen Pierce Cystine Normal [facility] Comment on above: Performed By: #### U A #### [facility] [address] [place] [address] Dr. Karen Pierce Disclaimer: Comment Normal [facility] Comment on above: Result Comment: This test was developed and its performance characteristics determined by [facility]. It has not been cleared or approved by the Food and Drug Administration. Performed By: #### U A #### [facility] [address] [place] [address] Dr. Karen Pierce Dried Blood [facility] Comment on above: Performed By: #### U A #### [facility] [address] [place] [address] Dr. Karen Pierce Drug or Metabolite Normal [facility] Comment on above: Performed By: #### U A #### [facility] [address] [place] [address] Dr. Karen Pierce Hydroxyapatite [facility] Comment on above: Performed By: #### U A #### [facility] [address] [place] [address] Dr. Karen Pierce Mg NH4 PO4 (Struvite) [facility] Comment on above: Performed By: #### U A #### [facility] [address] [place] [address] Dr. Karen Pierce MgHPO4 (Newberyite) [facility] Comment on above: Performed By: #### U A #### [facility] [address] [place] [address] Dr. Karen Pierce Other component(s) Normal [facility] Comment on above: Performed By: #### U A #### [facility] [address] [place] [address] Dr. Karen Pierce PDF . Normal [facility] Comment on above: Performed By: #### U A #### [facility] [address] [place] [address] Dr. Karen Pierce Photo Comment Normal [facility] Comment on above: Result Comment: Phot ograph will follow under a separate cover Performed By: #### U A #### [facility] [address] [address] [address] Karen Pierce Please note: Comment Normal [facility] Comment on above: Result Comment: Calc shirley report will follow via computer, mail or sludge filtration operator delivery. Performed By: #### U A #### [facility] [address] [address] [address] Karen Pierce Size 5x5 Normal [facility] Comment on above: Result Comment: Mult iple pieces received. Dimensions of the largest piece reported. Performed By: #### U A #### [facility] [address] [address] [address] Karen Pierce Sodium Acid Urate [facility] Comment on above: Performed By: #### U A #### [facility] [address] [place] [address] Dr. Karen Pierce Source Comment [facility] Comment on above: Result Comment: Urin evelin Bladder Performed By: #### U A #### [facility] [address] [address] [address] Karen Pierce Triamterene [facility] Comment on above: Performed By: #### U A #### [facility] [address] [address] [address] Karen Pierce Uric Acid [facility] Comment on above: Performed By: #### U A #### [facility] [address] [address] [address] Karen Pierce Uric Acid Dihydrate [facility] Comment on above: Performed By: #### U A #### [facility] [address] [address] [address] Karen Pierce Weight 158 mg [facility] Comment on above: Performed By: #### U A #### [facility] [address] [address] [address] Karen Pierce Xanthine [facility] Comment on above: Performed By: #### U A #### [facility] [address] [address] [address] Karen Pierce Pathology Noteon 09-17-2022 Pathology Note [id number]#[id number]:127 Normal [facility] ER URINE PROFILEon 3 Bilirubin Ql (U) Negative Normal NEGATIVE [facility] Comment on above: Performed By: #### U MICRO, ERUR #### [facility] [address] [place] [address] Dr. Karen Pierce Clarity (U) CLEAR Normal CLEAR [facility] Comment on above: Performed By: #### U MICRO, ERUR #### [facility] [address] [place] [address] Dr. Karen Pierce Color (U) YELLOW Normal YELLOW [facility] Comment on above: Performed By: #### U MICRO, ERUR #### [facility] [address] [place] [address] Dr. Karen Pierce ERUAHD A micrscopic examina tion will be performed if indicated. Normal [facility] Comment on above: Performed By: #### U MICRO, ERUR #### [facility] [address] [place] [address] Dr. Karen Pierce Glucose Ql (U) Negative Normal NEGATIVE [facility] Comment on above: Performed By: #### U MICRO, ERUR #### [facility] [address] [place] [address] Dr. Karen Pierce Hemoglobin Ql (U) LARGE Abnormal NEGATIVE [facility] Comment on above: Performed By: #### U MICRO, ERUR #### [facility] [address] [address] [address] Karen Pierce Ketones Ql (U) Negative Normal NEGATIVE [facility] Comment on above: Performed By: #### U MICRO, ERUR #### [facility] [address] [address] [address] Karen Pierce LEUKOCYTES LARGE Abnormal NEGATIVE [facility] Comment on above: Performed By: #### U MICRO, ERUR #### [facility] [address] [place] [address] Dr. Karen Pierce Nitrite Ql (U) Positive Abnormal NEGATIVE [facility] Comment on above: Performed By: #### U MICRO, ERUR #### [facility] [address] [place] [address] Dr. Karen Pierce pH (U) 5.5 [pH] Normal 5-9 [facility] Comment on above: Performed By: #### U MICRO, ERUR #### [facility] [address] [place] [address] Dr. Karen Pierce Protein (U) [Mass/Vol] 100 mg/dL Abnormal NEGAT RAJI/ TRACE [facility] Comment on above: Performed By: #### U MICRO, ERUR #### [facility] [address] [place] [address] Dr. Karen Pierce SPEC GRAVITY 1.020 Normal 1.005-<=1. 025 [facility] Comment on above: Performed By: #### U MICRO, ERUR #### [facility] [address] [place] [address] Dr. Karen Pierce UR MICRO IND INDICATED Normal [facility] Comment on above: Performed By: #### U MICRO, ERUR #### [facility] [address] [place] [address] Dr. Karen Pierce Urobilinogen Qn (U) 1.0 {Tonio'U}/dL Normal 0.2 - 1. 0 [facility] Comment on above: Performed By: #### U MICRO, ERUR #### [facility] [address] [place] [address] Dr. Karen Pierce URINE MICROSCOPIC ONLYon BACTERIA SMALL Abnormal NONE SEEN [facility] Comment on above: Performed By: #### U MICRO, ERUR #### [facility] [address] [place] [address] Dr. Karen Pierce Bacteria identified Cx Nom (U) INDICATED Normal [facility] Comment on above: Performed By: #### U MICRO, ERUR #### [facility] [address] [place] [address] Dr. Karen Pierce CAST NONE SEEN Normal NONE SEEN [facility] Comment on above: Performed By: #### U MICRO, ERUR #### [facility] [address] [address] [address] Karen Pierce Crystals LM Nom (Urine sed) NONE SEEN Normal NONE SEEN [facility] Comment on above: Performed By: #### U MICRO, ERUR #### [facility] [address] [place] [address] Dr. Karen Pierce Epithelial cells LM Ql (Urine sed) NONE SEEN Normal NONE SEEN /RARE [facility] Comment on above: Performed By: #### U MICRO, ERUR #### [facility] [address] [place] [address] Dr. Karen Pierce MUCOUS NONE SEEN Normal NONE SEEN [facility] Comment on above: Performed By: #### U MICRO, ERUR #### [facility] [address] [place] [address] Dr. Karen Pierce RBC (U) [#/Vol] /uL Abnormal 0-2 [facility] Comment on above: Performed By: #### U MICRO, ERUR #### [facility] [address] [place] [address] Dr. Karen Pierce WBC 50-75 Abnormal NONE SEEN [facility] Comment on above: Performed By: #### U MICRO, ERUR #### [facility] [address] [place] [address] Dr. Karen Pierce Operative Reporton Operative Report [id number]#1.00CD:127 Normal [facility] Consultation Noteon 09-10-19 23 Consultation Note [id number]#1.00CD:127 Normal [facility] Consultation Note [id number]#1.00CD:127 Normal [facility] Consultation Note [id number]#1.00CD:127 Normal [facility] Lab Reportson 09-09-2022 Lab Reports [id number]#1.00CD:127 Normal [facility] RAD - MISCon 09-09-2022 RAD - MISC [id number]#1.00CD:127 Normal [facility] PTH INTACTon 09-05-2022 PTH, Intact 38 pg/mL Normal 15-65 [facility] Comment on above: Performed By: #### P THINT #### [facility] [address] [place] [address] Dr. Karen Pierce FERRITINon 09-04-2022 Ferritin [Mass/Vol] 49.0 ng/mL Normal 26.0-388.0 [facility] Comment on above: Performed By: #### U RTPCR #### [facility] [address] [place] [address] Dr. Karen Pierce IRON AND TIBCon 09-04-2022 % SATURATION 10.3 % Normal [facility] Comment on above: Performed By: #### U RTPCR #### [facility] [address] [place] [address] Dr. Karen Pierce Iron [Mass/Vol] 33.0 ug/dL Critically low 65.0-175.0 [facility] Comment on above: Performed By: #### U RTPCR #### [facility] [address] [place] [address] Dr. Karen Pierce TIBC DIRECT 319.0 ug/dL Normal 250.0-450. 0 [facility] Comment on above: Performed By: #### U RTPCR #### [facility] [address] [place] [address] Dr. Karen Pierce UA RANDOMon 09-04-2022 Bilirubin Ql (U) Negative Normal NEGATIVE [facility] Comment on above: Performed By: #### U A #### [facility] [address] [place] [address] Dr. Karen Pierce Clarity (U) CLEAR Normal CLEAR [facility] Comment on above: Performed By: #### U A #### [facility] [address] [place] [address] Dr. Karen Pierce Color (U) LT. YELLOW Normal YELLOW [facility] Comment on above: Performed By: #### U A #### [facility] [address] [place] [address] Dr. Karen Pierce Glucose Ql (U) Negative Normal NEGATIVE [facility] Comment on above: Performed By: #### U A #### [facility] [address] [place] [address] Dr. Karen Pierce Hemoglobin Ql (U) MODERATE Abnormal NEGATIVE [facility] Comment on above: Performed By: #### U A #### [facility] [address] [place] [address] Dr. Karen Pierce Ketones Ql (U) Negative Normal NEGATIVE [facility] Comment on above: Performed By: #### U A #### [facility] [address] [place] [address] Dr. Karen Pierce LEUKOCYTES LARGE Abnormal NEGATIVE [facility] Comment on above: Performed By: #### U A #### [facility] [address] [place] [address] Dr. Karen Pierce Nitrite Ql (U) Positive Abnormal NEGATIVE [facility] Comment on above: Performed By: #### U A #### [facility] [address] [place] [address] Dr. Karen Pierce pH (U) 6.5 [pH] Normal 5-9 [facility] Comment on above: Performed By: #### U A #### [facility] [address] [place] [address] Dr. Karen Pierce SPEC GRAVITY 1.015 Normal 1.005-<=1. 025 [facility] Comment on above: Performed By: #### U A #### [facility] [address] [place], [place] [address] Dr. Karen Pierce UA PROTEIN 30 mg/dl Abnormal NEGATIVE/ TRACE [facility] Comment on above: Performed By: #### U A #### [facility] [address] [place] [address] Dr. Karen Pierce Urobilinogen Qn (U) 0.2 {Tonio'U}/dL Normal 0.2 - 1. 0 [facility] Comment on above: Performed By: #### U A #### [facility] [address] [place] [address] Dr. Karen Pierce URINE T PROTEIN CREAT RATIOo n 09-04-2022 Protein (U) [Mass/Vol] 65.2 mg/dL Critically high <=12.0 [facility] Comment on above: Performed By: #### U RTPCR #### [facility] [address] [place] [address] Dr. Karen Pierce UR PROT CREAT RAT 0.76 Normal [facility] Comment on above: Performed By: #### U RTPCR #### [facility] [address] [place] [address] Dr. Karen Pierce URINE CREAT 85.95 mg/dL Normal 20.00-300. 00 [facility] Comment on above: Performed By: #### U RTPCR #### [facility] [address] [place] [address] Dr. Karen Pierce VIT B12 AND FOLATEon 023 Cobalamin (Vitamin B12) [Mass/Vol] 279.0 pg/mL Normal 193.0-986. 0 [facility] Comment on above: Performed By: #### U RTPCR #### [facility] [address] [place] [address] Dr. Karen Pierce FOLATE 17.80 ng/mL Normal 8.60-58.90 [facility] Comment on above: Performed By: #### U RTPCR #### [facility] [address] [place] [address] Dr. Karen Pierce VITAMIN D 25 OHon 09-04-2022 VIT D 25-OH 29.9 ng/mL Normal [facility] Comment on above: Performed By: #### U RTPCR #### [facility] [address] [place] [address] Dr. Karen Pierce VIT D RANGES SEE BELOW Normal [facility] Comment on above: Result Comment: <20 ng/mL Vit D deficient 20 - <30 ng/mL Vit D insufficient 30 - 100 ng/mL Vit D sufficient >100 ng/mL Potential Toxicity Performed By: #### U RTPCR #### [facility] [address] [address] [address] Karen Pierce CBC AUTO DIFFon 09-02-2022 BASO # 0.1 103/ul Normal 0.0-0.1 [facility] Comment on above: Performed By: #### C BC #### [facility] [address] [address] [address] Karen Pierce Basophils/100 WBC (Bld) 0.7 % Normal 0.2-2.0 [facility] Comment on above: Performed By: #### C BC #### [facility] [address] [place] [address] Dr. Karen Pierce EO # 0.2 103/ul Normal 0.0-0.7 [facility] Comment on above: Performed By: #### C BC #### [facility] [address] [place] [address] Dr. Karen Pierce Eosinophils/100 WBC (Bld) 2.6 % Normal 0.9-7.0 [facility] Comment on above: Performed By: #### C BC #### [facility] [address] [place] [address] Dr. Karen Pierce Erythrocyte distribution width (RBC) [Ratio] 13.8 % Normal 11.0-15.0 [facility] Comment on above: Performed By: #### C BC #### [facility] [address] [place] [address] Dr. Karen Pierce Hematocrit (Bld) [Volume fraction] 38.9 % Critically low 42.0-54.0 [facility] Comment on above: Performed By: #### C BC #### [facility] [address] [place] [address] Dr. Karen Pierce Hemoglobin (Bld) [Mass/Vol] 12.3 g/dL Critically low 14.0-18.0 [facility] Comment on above: Performed By: #### C BC #### [facility] [address] [place] [address] Dr. Karen Pierce IG # 0.01 10e3/ul Normal 0.00-0.03 [facility] Comment on above: Performed By: #### C BC #### [facility] [address] [place] [address] Dr. Karen Pierce IG % 0.1 % Normal 0.0-0.5 [facility] Comment on above: Performed By: #### C BC #### [facility] [address] [place] [address] Dr. Karen Pierce LYMPH # 1.9 103/ul Normal 1.2-3.8 [facility] Comment on above: Performed By: #### C BC #### [facility] [address] [place] [address] Dr. Karen Pierce Lymphocytes/100 WBC (Bld) 27.0 % Normal 20.5-60.0 [facility] Comment on above: Performed By: #### C BC #### [facility] [address] [place] [address] Dr. Karen Pierce MANUAL DIFF REQ NO Normal [facility] Comment on above: Performed By: #### C BC #### [facility] [address] [place] [address] Dr. Karen Pierce MCH (RBC) [Entitic mass] 27.8 pg Normal 25.9-34.0 [facility] Comment on above: Performed By: #### C BC #### [facility] [address] [place] [address] Dr. Karen Pierce MCHC (RBC) [Mass/Vol] 31.6 g/dL Normal 29.9-35.2 [facility] Comment on above: Performed By: #### C BC #### [facility] [address] [place] [address] Dr. Karen Pierce MCV (RBC) [Entitic vol] 87.8 fL Normal 80.0-94.0 [facility] Comment on above: Performed By: #### C BC #### [facility] [address] [place] [address] Dr. Karen Pierce MONO # 0.6 103/ul Normal 0.3-0.8 [facility] Comment on above: Performed By: #### C BC #### [facility] [address] [place] [address] Dr. Karen Pierce Monocytes/100 WBC (Bld) 8.8 % Normal 1.7-12.0 [facility] Comment on above: Performed By: #### C BC #### [facility] [address] [place] [address] Dr. Karen Pierce NEUT # 4.4 103/ul Normal 1.4-6.5 [facility] Comment on above: Performed By: #### C BC #### [facility] [address] [place] [address] Dr. Karen Pierce Neutrophils/100 WBC (Bld) 60.8 % Normal 43.0-75.0 [facility] Comment on above: Performed By: #### C BC #### [facility] [address] [place] [address] Dr. Karen Pierce Platelet mean volume (Bld) [Entitic vol] 9.9 fL Normal 9.5-13.5 [facility] Comment on above: Performed By: #### C BC #### [facility] [address] [place] [address] Dr. Karen Pierce PLT 181 103/ul Normal 150-450 [facility] Comment on above: Performed By: #### C BC #### [facility] [address] [place] [address] Dr. Karen Pierce RBC 4.43 106/ul Critically low 4.70-6.10 [facility] Comment on above: Performed By: #### C BC #### [facility] [address] [place] [address] Dr. Karen Pierce WBC 7.2 103/ul Normal 4.0-11.0 [facility] Comment on above: Performed By: #### C BC #### [facility] [address] [place] [address] Dr. Karen Pierce MAGNESIUMon 09-02-2022 Magnesium [Mass/Vol] 2.2 mg/dL Normal 1.8-2.4 [facility] Comment on above: Performed By: #### U A #### [facility] [address] [place] [address] Dr. Karen Pierce PHOSPHORUSon 09-02-2022 Phosphate [Mass/Vol] 2.9 mg/dL Normal 2.6-4.7 [facility] Comment on above: Performed By: #### U A #### [facility] [address] [place] [address] Dr. Karen Pierce PROF 14(COMP METB)on 023 Albumin [Mass/Vol] 3.5 g/dL Normal 3.4-5.0 [facility] Comment on above: Performed By: #### P THINT #### [facility] [address] [place] [address] Dr. Karen Pierce Albumin/Globulin [Mass ratio] 1.0 {ratio} Normal [facility] Comment on above: Performed By: #### P THINT #### [facility] [address] [place] [address] Dr. Karen Pierce ALP [Catalytic activity/Vol] 86 U/L Normal 46-116 [facility] Comment on above: Performed By: #### P THINT #### [facility] [address] [place] [address] Dr. Karen Pierce ALT [Catalytic activity/Vol] 17 U/L Normal 16-63 [facility] Comment on above: Performed By: #### P THINT #### [facility] [address] [place] [address] Dr. Karen Pierce Anion gap [Moles/Vol] 13.0 mmol/L Normal [facility] Comment on above: Performed By: #### P THINT #### [facility] [address] [place] [address] Dr. Karen Pierce AST [Catalytic activity/Vol] 14 U/L Critically low 15-37 [facility] Comment on above: Performed By: #### P THINT #### [facility] [address] [place] [address] Dr. Karen Pierce Bilirubin [Mass/Vol] 0.3 mg/dL Normal 0.2-1.0 [facility] Comment on above: Performed By: #### P THINT #### [facility] [address] [address] [address] Karen Pierce CO2 [Moles/Vol] 27.6 mmol/L Normal 21.0-32.0 [facility] Comment on above: Performed By: #### P THINT #### [facility] [address] [address] [address] Karen Pierce Creatinine [Mass/Vol] 1.48 mg/dL Critically high 0.70-1.30 [facility] Comment on above: Performed By: #### P THINT #### [facility] [address] [address] [address] Karen Pierce EGFR-AF TURKMEN 56 mL/min/1.73m2 Critically low >=60 [facility] Comment on above: Performed By: #### P THINT #### [facility] [address] [place] [address] Dr. Karen Pierce EGFR-NON AF TURKMEN 46 mL/min/1.73m2 Critically low >=60 [facility] Comment on above: Performed By: #### P THINT #### [facility] [address] [address] [address] Karen Pierce Globulin (S) [Mass/Vol] 3.6 g/dL Normal [facility] Comment on above: Performed By: #### P THINT #### [facility] [address] [place] [address] Dr. Karen Pierce Glucose [Mass/Vol] 105 mg/dL Normal 74-106 [facility] Comment on above: Performed By: #### P THINT #### [facility] [address] [place] [address] Dr. Karen Pierce Protein [Mass/Vol] 7.1 g/dL Normal 6.4-8.2 [facility] Comment on above: Performed By: #### P THINT #### [facility] [address] [place] [address] Dr. Karen Pierce Sodium [Moles/Vol] 142 mmol/L Normal 136-145 [facility] Comment on above: Performed By: #### P THINT #### [facility] [address] [place] [address] Dr. Karen Pierce Urea nitrogen/Creatinine [Mass ratio] 16.2 mg/mg Normal [facility] Comment on above: Performed By: #### P THINT #### [facility] [address] [place] [address] Dr. Karen Pierce PROF CHEM 8 (BAS METB)on Anion gap [Moles/Vol] 11.1 mmol/L Normal [facility] Comment on above: Performed By: #### U A #### [facility] [address] [place] [address] Dr. Karen Pierce Calcium [Mass/Vol] 8.7 mg/dL Normal 8.5-10.1 [facility] Comment on above: Performed By: #### U A #### [facility] [address] [place] [address] Dr. Karen Pierce Performed By: #### P THINT #### [facility] [address] [place] [address] Dr. Karen Pierce Chloride [Moles/Vol] 106 mmol/L Normal 98-107 [facility] Comment on above: Performed By: #### U A #### [facility] [address] [place] [address] Dr. Karen Pierce Performed By: #### P THINT #### [facility] [address] [place] [address] Dr. Karen Pierce CO2 [Moles/Vol] 28.5 mmol/L Normal 21.0-32.0 [facility] Comment on above: Performed By: #### U A #### [facility] [address] [place] [address] Dr. Karen Pierce Creatinine [Mass/Vol] 1.44 mg/dL Critically high 0.70-1.30 [facility] Comment on above: Performed By: #### U A #### [facility] [address] [place] [address] Dr. Karen Pierce EGFR-AF TURKMEN 58 mL/min/1.73m2 Critically low >=60 [facility] Comment on above: Performed By: #### U A #### [facility] [address] [address] [address] Karen Pierce EGFR-NON AF TURKMEN 47 mL/min/1.73m2 Critically low >=60 [facility] Comment on above: Performed By: #### U A #### [facility] [address] [address] [address] Karen Pierce Glucose [Mass/Vol] 104 mg/dL Normal 74-106 [facility] Comment on above: Performed By: #### U A #### [facility] [address] [place] [address] Dr. Karen Pierce Potassium [Moles/Vol] 4.6 mmol/L Normal 3.5-5.1 [facility] Comment on above: Performed By: #### U A #### [facility] [address] [place] [address] Dr. Karen Pierce Performed By: #### P THINT #### [facility] [address] [place] [address] Dr. Karen Pierce Sodium [Moles/Vol] 141 mmol/L Normal 136-145 [facility] Comment on above: Performed By: #### U A #### [facility] [address] [place] [address] Dr. Karen Pierce Urea nitrogen [Mass/Vol] 24.0 mg/dL Critically high 7.0-18.0 [facility] Comment on above: Performed By: #### U A #### [facility] [address] [place] [address] Dr. Karen Pierce Performed By: #### P THINT #### [facility] [address] [place] [address] Dr. Karen Pierce Urea nitrogen/Creatinine [Mass ratio] 16.7 mg/mg Normal [facility] Comment on above: Performed By: #### U A #### [facility] [address] [place] [address] Dr. Karen Pierce PROTIMEon 09-02-2022 INR Coag (PPP) [Relative time] 1.01 {INR} Normal [facility] Comment on above: Performed By: #### P TT, PT #### [facility] [address] [place] [address] Dr. Karen Pierce INR GUIDELINES SEE BELOW Normal [facility] Comment on above: Result Comment: EMY RED INR: 2.0 - 3.0 CONDITIONS NOT LISTED BELOW 2.5 - 3.5 FOR PROSTHETIC HEART VALVE REPLACEMENT 2.5 - 3.5 RECURRENT THROMBOSIS Performed By: #### P TT, PT #### [facility] [address] [place] [address] Dr. Karen Pierce PT Coag (PPP) [Time] 10.7 s Normal 9.0-11.6 [facility] Comment on above: Performed By: #### P TT, PT #### [facility] [address] [place] [address] Dr. Karen Pierce PTTon 09-02-2022 aPTT Coag (Bld) [Time] 28.2 s Normal 22.3-36.2 [facility] Comment on above: Performed By: #### P TT, PT #### [facility] [address] [place] [address] Dr. Karen Pierce URIC ACID SERUMon 09-02-2022 Urate [Mass/Vol] 4.8 mg/dL Normal 3.5-7.2 [facility] Comment on above: Performed By: #### P THINT #### [facility] [address] [place] [address] Dr. Karen Pierce Consent for Procedure/Surger yon 08-27-2022 Consent for Procedure/Surgery [id number]:127 Normal [facility] Formson 08-27-2022 Forms [id number]:127 Normal [facility] CT angio abdomen pelvison [place] [address] CT Scan Report Signed Patient: Alex Anderson MR#: [id number] 36 : 1945 Acct:[id number] Age/Sex: 76 / M ADM Date: 08/16/22 Loc: CT Room: Type: [facility] Attending Dr: Margarito Valentine MD Copies [...] Corky Max M.D.08/16/2022 12:04 PM Dictation Location: [place] [address] Transcribed By: LIONEL 08/16/22 1204 Dictated By: Corky Max II, MD 08/16/22 1154 Signed By: 08/16/22 1204 [facility] Creatinine (Bld) [Mass/Vol]O rdered By: Margarito Valentine on 08-16-2022 Creatinine [Mass/Vol] 1.5 mg/dL 0.6-1.3 [facility] Comment on above: ER/ESD physician is notified/shown all ISTAT results.Critical values may be confirmed by laboratory testing ifdeemed necessary by ER attending doctor. [facility] Fish and Urine Cyt o ([facility])on 08-07-2022 UVFISH & UC Diagnosis Info Invalid Interpretation Code [facility] Comment on above: Result Comment: A:Ur [...] on: 08/07/2022 17:56:58 Performed By: #### 1 [id number] ####[facility] [id number] Consent for Procedure/Surger yon 07-31-2022 Consent for Procedure/Surgery [id number]:127 Normal [facility] Patient Educationon 08-01-19 Patient Education Oncology [...] including vitamins, herbs, eye drops, creams, and knpu-vnd-ufwehwd medicines. ? Any problems you or family [...] tells you to take them. ? Taking kjwi-zzj-ovplzuo medicines, vitamins, herbs, and supplements. Tests You [...] walk around (more content not included)... Normal [facility] U[facility] Fish [facility] Urine Cyt [facility] ([facility])on 07-31-2022 [facility] Method of Extraction Bladder Wash Normal [facility] Comment on above: Performed By: #### 1 [id number] ####[facility] [address] [place] [address] [facility] Number of Jars 1 Invalid Interpretation Code [facility] Comment on above: Performed By: #### 1 [id number] ####[facility] [address] [address] [facility] Specimen Bladder Wash Normal [facility] Comment on above: Performed By: #### 1 [id number] ####[facility] [address] [place] [address] [facility] Type of Service Technical Only Normal [facility] Comment on above: Performed By: #### 1 [id number] ####[facility] [address] [place] [address] Urology Office/Clinic Noteon 07-31-2022 Urology Office/Clinic Note [...] significant proteinuria, and 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 No recent labs (since d/c from hospital). 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 Ureters insert in atypical locations. 5. Renal lesion (N28.9: Disorder of k (more content not included)... Normal [facility] Comment on above: Result Comment: Elec tronically Signed By: ARLENE CASILLAS, [place] Fall.br\Date and Time Signed: 07/31/22 08:07 EST Creatinine (Bld) [Mass/Vol]O rdered By: Heather Schwab on 07-24-2022 Creatinine [Mass/Vol] 1.6 mg/dL 0.6-1.3 [facility] Comment on above: ER/ESD physician is notified/shown all ISTAT results.Critical values may be confirmed by laboratory testing ifdeemed necessary by ER attending doctor. ISTAT XRay CREon 07-24-2022 Creatinine [Mass/Vol] 1.6 mg/dL High 0.6-1.3 [facility] Comment on above: Result Comment: ER/E SD physician is notified/shown all ISTAT results. Critical values may be confirmed by laboratory testing if deemed necessary by ER attending doctor. Performed By: #### I SCRE #### [address] Point of Care testing , ISTAT GFR ( 51 [facility] Comment on above: Result Comment: GFR estimated reference range: According to KDOQI guidelines, <60 ml/min/1.73m2 is sufficient to diagnose a patient with chronic kidney disease. PERFORMED BY: [place] [address] PATHOLOGIST UI DEVELOPER OREN OWEN M.D. Performed By: #### I SCRE #### [address] Point of Care testing , ISTAT GFR (Non- Am [facility] Comment on above: Performed By: #### I SCRE #### [address] Point of Care testing , No Panel InformationOrdered By: Heather Schwab on 07-24-2022 POC Estimated GFR [address] [place] [address] Comment on above: GFR estimated refere nce range: According to KDOQI guidelines, <60 ml/min/1.73m2 is sufficient to diagnose a patient with chronic kidney disease. POC Estimated GFR Non- Amer 42 [facility] Blood activated clotting lacho e by coagulation assayOrdered By: Margarito Valentine on 07-02-2022 ACT Coag (Bld) 215 s 90-139 [facility] Comment on above: Reference Range: 90- 139 (Non-heparinized) Basophils Auto (Bld) [#/Vol] Ordered By: Margarito Valentine on 06-21-2022 Basophils (Bld) [#/Vol] 0.1 10*3/uL 0.0-0.2 [facility] Basophils/100 WBC Auto (Bld) Ordered By: Margarito Valentine on 06-21-2022 Basophils/100 WBC (Bld) 0.9 % . [facility] Creatinine and Glomerular fi ltration rate.predicted panel (S/P/Bld)Ordered By: Margarito Valentine on 06-21-2022 Creatinine [Mass/Vol] 1.24 mg/dL 0.64-1.27 [facility] Eosinophils Auto (Bld) [#/Vo l]Ordered By: Margarito Valentine on 06-21-2022 Eosinophils (Bld) [#/Vol] 0.2 10*3/uL 0.0-0.45 [facility] Eosinophils/100 WBC Auto (Bl d)Ordered By: Margarito Valentine on 06-21-2022 Eosinophils/100 WBC (Bld) 2.5 % . [facility] Erythrocyte distribution wid th Auto (RBC) [Ratio]Ordered By: Margarito Valentine on 06-21-2022 Erythrocyte distribution width (RBC) [Ratio] 18.0 % 12.0-14.8 [facility] Estimated glomerular filtrat ion rate (GFR) non- AmericanOrdered By: Margarito Valentine on 06-21-2022 GFR/1.73 sq M.predicted among non-blacks MDRD (S/P/Bld) [Vol rate/Area] 56 mL/Min [facility] Hematocrit Auto (Bld) [Volum e fraction]Ordered By: Margarito Valentine on 06-21-2022 Hematocrit (Bld) [Volume fraction] 37.7 % 38.8-50.0 [facility] Hemoglobin [Mass/volume] in BloodOrdered By: Margarito Valentine on 06-21-2022 Hemoglobin (Bld) [Mass/Vol] 12.3 g/dL 13.0-17.0 [facility] Leukocytes [#/volume] correc phil for nucleated erythrocytes in Blood by Automated counOrdered By: Margarito Valentine on 06-21-2022 WBC corrected for nucl RBC Auto (Bld) [#/Vol] 7.1 10*3/uL 4.1-10.5 [facility] Lymphocytes Auto (Bld) [#/Vo l]Ordered By: Margarito Valentine on 06-21-2022 Lymphocytes (Bld) [#/Vol] 1.3 10*3/uL 1.00-4.8 [facility] Lymphocytes/100 WBC Auto (Bl d)Ordered By: Margarito Valentine on 06-21-2022 Lymphocytes/100 WBC (Bld) 18.7 % . [facility] MCH Auto (RBC) [Entitic mass ]Ordered By: Margarito Valentine on 06-21-2022 MCH (RBC) [Entitic mass] 28.2 pg 27.5-35.2 [facility] MCHC Auto (RBC) [Mass/Vol]Or dered By: Margarito Valentine on 06-21-2022 MCHC (RBC) [Mass/Vol] 32.6 g/dL 32.5-35.6 [facility] MCV Auto (RBC) [Entitic vol] Ordered By: Margarito Valentine on 06-21-2022 MCV (RBC) [Entitic vol] 86.5 fL 83.5-101 [facility] Monocytes Auto (Bld) [#/Vol] Ordered By: Margarito Valentine on 06-21-2022 Monocytes (Bld) [#/Vol] 0.7 10*3/uL 0.0-0.8 [facility] Monocytes/100 WBC Auto (Bld) Ordered By: Margairto Valentine on 06-21-2022 Monocytes/100 WBC (Bld) 10.3 % . [facility] Neutrophils Auto (Bld) [#/Vo l]Ordered By: Margarito Valentine on 06-21-2022 Neutrophils (Bld) [#/Vol] 4.8 10*3/uL 1.8-7.7 [facility] Neutrophils/100 WBC Auto (Bl d)Ordered By: Margarito Valentine on 06-21-2022 Neutrophils/100 WBC (Bld) 67.6 % . [facility] No Panel InformationOrdered By: Margarito Valentine on 06-21-2022 Estimated GFR () > 60 mL/Min [facility] Comment on above: GFR estimated refere nce range: According to KDOQI guidelines, <60 ml/min/1.73m2 is sufficient to diagnose a patient with chronic kidney disease. Pharmacy Creatinine Clearance (Chem N/A [facility] Nucleated erythrocytes [Pres ence] in Blood by Automated countOrdered By: Margarito Valentine on 06-21-2022 Nucleated RBC Auto Ql (Bld) 0.1 /100{WBC} 0-0.5 [facility] Platelet mean volume Auto (B ld) [Entitic vol]Ordered By: Margarito Valentine on 06-21-2022 Platelet mean volume (Bld) [Entitic vol] 8.2 fL 6.6-10.1 [facility] Platelets Auto (Bld) [#/Vol] Ordered By: Margarito Valentine on 06-21-2022 Platelets (Bld) [#/Vol] 149 10*3/uL 150-450 [facility] RBC Auto (Bld) [#/Vol]Ordere d By: Margarito Valentine on 06-21-2022 RBC (Bld) [#/Vol] 4.36 10*6/uL 3.90-5.60 [facility] Serum or plasma anion gap de terminationOrdered By: Margarito Valentine on 06-21-2022 Anion gap [Moles/Vol] 10.8 mmol/L 6.0-15.0 [facility] Serum or plasma calcium elan urement (mass/volume)Ordered By: Margarito Valentine on 06-21-2022 Calcium [Mass/Vol] 8.8 mg/dL 8.2-10.2 [facility] Serum or plasma chloride herb surement (moles/volume)Ordered By: Margarito Valentine on 06-21-2022 Chloride [Moles/Vol] 107 mmol/L 95-114 [facility] Serum or plasma glucose elan urement (mass/volume)Ordered By: Margarito Valentine on 06-21-2022 Glucose [Mass/Vol] 103 mg/dL 70-100 [facility] Comment on above: ADA recommended refe rence rangeRandom Glucose Reference Range is dependent on time and content of last meal. Glucose of more than 200 mg/dL in a nonstressed, ambulatory subject supports the diagnosis of Diabetes Mellitus. Serum or plasma potassium me asurement (moles/volume)Ordered By: Margarito Valentine on 06-21-2022 Potassium [Moles/Vol] 4.2 mmol/L 3.5-5.1 [facility] Serum or plasma sodium measu rement (moles/volume)Ordered By: Margarito Valentine on 06-21-2022 Sodium [Moles/Vol] 138 mmol/L 136-146 [facility] Serum or plasma total carbon dioxide measurement (moles/volume)Ordered By: Margarito Valentine on 06-21-2022 CO2 [Moles/Vol] 24.4 mmol/L 22.0-30.0 [facility] Serum or plasma urea nitroge n measurement (mass/volume)Ordered By: Margarito Valentine on 06-21-2022 Urea nitrogen [Mass/Vol] 18 mg/dL 02-15 [facility] WBC Auto (Bld) [#/Vol]Ordere d By: Margarito Valentine on 06-21-2022 WBC (Bld) [#/Vol] 7.1 10*3/uL 4.1-10.5 [facility] Office Visit (Cardiology)on 06-03-2022 Follow-up visit Diagnoses/Problems [...] Complaint ALEX ANDERSON is being seen for [facility] poc/ekg. 76-year-old white male who I saw [...] Signs Recorded: 03Jun2022 03:38PM Heart Rate71, Apical Nlaptwxr859, LUE, Sitting Eredxitnf84, LUE, Sitting Height6 ft 2 in Jakefi706 lb BMI Frpfgbhnbr79.45 kg/m2 BSA Calculated2.2 Tobacco Useb) No PHQ-2 [...] , regular (more content not included)... Normal [facility] Tobacco Screening.on 023 Adult depression screening assessment No [employer] 250 DO Work Phone: Fall risk assessment a) [facility] falls within the last year [facility] [employer] DO Work Phone: Tobacco use status CPHS b) No [facility] [employer] 250 DO Work Phone: Basophils Auto (Bld) [#/Vol] Ordered By: Bernabe Cr on 05-22-2022 Basophils (Bld) [#/Vol] 0.1 10*3/uL 0.0-0.2 [facility] Basophils/100 WBC Auto (Bld) Ordered By: Bernabe Cr on 05-22-2022 Basophils/100 WBC (Bld) 1.2 % . [facility] Creatinine and Glomerular fi ltration rate.predicted panel (S/P/Bld)Ordered By: Bernabe Cr on 05-22-2022 Creatinine [Mass/Vol] 1.78 mg/dL 0.64-1.27 [facility] Eosinophils Auto (Bld) [#/Vo l]Ordered By: Bernabe Cr on 05-22-2022 Eosinophils (Bld) [#/Vol] 0.3 10*3/uL 0.0-0.45 [facility] Eosinophils/100 WBC Auto (Bl d)Ordered By: Bernabe Cr on 05-22-2022 Eosinophils/100 WBC (Bld) 3.6 % . [facility] Erythrocyte distribution wid th Auto (RBC) [Ratio]Ordered By: Bernabe Cr on 05-22-2022 Erythrocyte distribution width (RBC) [Ratio] 15.3 % 12.0-14.8 [facility] Estimated glomerular filtrat ion rate (GFR) non- AmericanOrdered By: Bernabe Cr on 05-22-2022 GFR/1.73 sq M.predicted among non-blacks MDRD (S/P/Bld) [Vol rate/Area] 37 mL/Min [facility] Hematocrit Auto (Bld) [Volum e fraction]Ordered By: Bernabe Cr on 05-22-2022 Hematocrit (Bld) [Volume fraction] 36.2 % 38.8-50.0 [facility] Hemoglobin [Mass/volume] in BloodOrdered By: Bernabe Cr on 05-22-2022 Hemoglobin (Bld) [Mass/Vol] 11.7 g/dL 13.0-17.0 [facility] Leukocytes [#/volume] correc phil for nucleated erythrocytes in Blood by Automated counOrdered By: Bernabe Cr on 05-22-2022 WBC corrected for nucl RBC Auto (Bld) [#/Vol] 8.1 10*3/uL 4.1-10.5 [facility] Lymphocytes Auto (Bld) [#/Vo l]Ordered By: Bernabe Cr on 05-22-2022 Lymphocytes (Bld) [#/Vol] 1.4 10*3/uL 1.00-4.8 [facility] Lymphocytes/100 WBC Auto (Bl d)Ordered By: Bernabe Cr on 05-22-2022 Lymphocytes/100 WBC (Bld) 16.9 % . [facility] MCH Auto (RBC) [Entitic mass ]Ordered By: Bernabe Cr on 05-22-2022 MCH (RBC) [Entitic mass] 27.4 pg 27.5-35.2 [facility] MCHC Auto (RBC) [Mass/Vol]Or dered By: Bernabe Cr on 05-22-2022 MCHC (RBC) [Mass/Vol] 32.5 g/dL 32.5-35.6 [facility] MCV Auto (RBC) [Entitic vol] Ordered By: Bernabe Cr on 05-22-2022 MCV (RBC) [Entitic vol] 84.3 fL 83.5-101 [facility] Monocytes Auto (Bld) [#/Vol] Ordered By: Bernabe Cr on 05-22-2022 Monocytes (Bld) [#/Vol] 0.8 10*3/uL 0.0-0.8 [facility] Monocytes/100 WBC Auto (Bld) Ordered By: Bernabe Cr on 05-22-2022 Monocytes/100 WBC (Bld) 10.1 % . [facility] Neutrophils Auto (Bld) [#/Vo l]Ordered By: Bernabe Cr on 05-22-2022 Neutrophils (Bld) [#/Vol] 5.6 10*3/uL 1.8-7.7 [facility] Neutrophils/100 WBC Auto (Bl d)Ordered By: Bernabe Cr on 05-22-2022 Neutrophils/100 WBC (Bld) 68.2 % . [facility] No Panel InformationOrdered By: Bernabe Cr on 05-22-2022 Estimated GFR () 45 mL/Min [facility] Comment on above: GFR estimated refere nce range: According to KDOQI guidelines, <60 ml/min/1.73m2 is sufficient to diagnose a patient with chronic kidney disease. Pharmacy Creatinine Clearance (Chem 39.77 [facility] Nucleated erythrocytes [Pres ence] in Blood by Automated countOrdered By: Bernabe Cr on 05-22-2022 Nucleated RBC Auto Ql (Bld) 0.1 /100{WBC} 0-0.5 [facility] Platelet mean volume Auto (B ld) [Entitic vol]Ordered By: Bernabe Cr on 05-22-2022 Platelet mean volume (Bld) [Entitic vol] 8.7 fL 6.6-10.1 [facility] Platelets Auto (Bld) [#/Vol] Ordered By: Bernabe Cr on 05-22-2022 Platelets (Bld) [#/Vol] 198 10*3/uL 150-450 [facility] RBC Auto (Bld) [#/Vol]Ordere d By: Bernabe Cr on 05-22-2022 RBC (Bld) [#/Vol] 4.29 10*6/uL 3.90-5.60 [facility] Serum or plasma anion gap de terminationOrdered By: Bernabe Cr on 05-22-2022 Anion gap [Moles/Vol] 13.3 mmol/L 6.0-15.0 [facility] Serum or plasma calcium elan urement (mass/volume)Ordered By: Bernabe Cr on 05-22-2022 Calcium [Mass/Vol] 8.3 mg/dL 8.2-10.2 [facility] Serum or plasma chloride herb surement (moles/volume)Ordered By: Bernabe Cr on 05-22-2022 Chloride [Moles/Vol] 104 mmol/L 95-114 [facility] Serum or plasma glucose elan urement (mass/volume)Ordered By: Bernabe Cr on 05-22-2022 Glucose [Mass/Vol] 180 mg/dL 70-100 [facility] Comment on above: ADA recommended refe rence rangeRandom Glucose Reference Range is dependent on time and content of last meal. Glucose of more than 200 mg/dL in a nonstressed, ambulatory subject supports the diagnosis of Diabetes Mellitus. Serum or plasma potassium me asurement (moles/volume)Ordered By: Bernabe Cr on 05-22-2022 Potassium [Moles/Vol] 3.3 mmol/L 3.5-5.1 [facility] Serum or plasma sodium measu rement (moles/volume)Ordered By: Bernabe Cr on 05-22-2022 Sodium [Moles/Vol] 137 mmol/L 136-146 [facility] Serum or plasma total carbon dioxide measurement (moles/volume)Ordered By: Bernabe Cr on 05-22-2022 CO2 [Moles/Vol] 23.0 mmol/L 22.0-30.0 [facility] Serum or plasma urea nitroge n measurement (mass/volume)Ordered By: Bernabe Cr on 05-22-2022 Urea nitrogen [Mass/Vol] 21 mg/dL 9-23 [facility] WBC Auto (Bld) [#/Vol]Ordere d By: Bernabe Cr on 05-22-2022 WBC (Bld) [#/Vol] 8.1 10*3/uL 4.1-10.5 [facility] No Panel InformationOrdered By: Bernabe Cr on 05-21-2022 25-Hydroxy Vitamin D Total 15.9 ng/mL 30-100 [facility] Comment on above: VITAMIN D STATUS 25( [place])VITAMIN D RANGE (ng/mL) Deficient <20 Insufficient 20 to <30Sufficient 30 to 100Reference: Sixto MF,Federico MATA, Palomo LESLIE, et al. Evaluation,treatment, and prevention of vitamin D deficiency; an Endocrine Society clinical practice guideline. JCEM. 2010; 96(7):1911-30. Vitamin C level 0.2 mg/dL 0.4-2.0 [facility] Comment on above: This test was develo ped and its performance characteristicsdetermined by [employer]. It has not been cleared orapproved by the Food and Drug Administration.Vitamin C deficiency is generally defined as plasma orserum concentrations less than 0.2 mg/dL and levels between0.2 and 0.4 mg/dL are considered low.Performed at: [address] [id number] Director: Mamadou Rodriguez MD, Phone: [phone] Folate [Mass/volume] in Seru m or PlasmaOrdered By: Taz Barnes on 05-20-2022 Folate [Mass/Vol] 5.5 ng/mL >5.9 [facility] Comment on above: Folate reference ran ge: >5.9 ng/mlThe WHO technical consultation on folate and vitamin [id number] has determined that folate concentrations lessthan 4 ng/ml are considered deficient. Laboratory - Chemistry and C hemistry - challengeOrdered By: Taz Barnes on 05-20-2022 Cobalamin (Vitamin B12) [Mass/Vol] 169 pg/mL 180-914 [facility] No Panel InformationOrdered By: Taz Barnes on 05-20-2022 Ova and Parasite Result 1 [facility] Ova and Parasite Result 1 [facility] Ova or parasites identificat ionOrdered By: Taz Barnes on 05-20-2022 Ova and parasites identified LM Nom (Unsp spec) [facility] Ova and parasites identified LM Nom (Unsp spec) [facility] Laboratory - Chemistry and C hemistry - challengeOrdered By: Janice Gonzalez on 05-19-2022 Magnesium [Mass/Vol] 1.7 mg/dL 1.6-2.6 [facility] Automated erythrocytes count in urine sediment (number/area)Ordered By: Taz Barnes on 05-18-2022 RBC Auto (Urine sed) [#/Area] 50-100 [HPF] 0-4 [facility] Automated leukocytes count i n urine sediment (number/area)Ordered By: Taz Barnes on 05-18-2022 WBC Auto (Urine sed) [#/Area] Innumerable [HPF] 0-4 [facility] Automated urine hyaline cast s count (number/volume)Ordered By: Taz Barnes on 05-18-2022 Hyaline casts Auto (U) [#/Vol] None seen [LPF] 0-1 [facility] Bilirubin Test strip Ql (U)O rdered By: Taz Barnes on 05-18-2022 Bilirubin Ql (U) Negative Negative [facility] Casts typing in urine sedime nt by light microscopyOrdered By: Taz Barnes on 05-18-2022 Casts LM Nom (Urine sed) None seen [LPF] None Seen [facility] Color Auto (U)Ordered By: Starr Barnes on 05-18-2022 Color (U) Yellow Yellow [facility] Ketones Auto test strip (U) [Mass/Vol]Ordered By: Taz Barnes on 05-18-2022 Ketones (U) [Mass/Vol] Negative Negative [facility] Nitrite Test strip Ql (U)Ord ered By: Taz Barnes on 05-18-2022 Nitrite Ql (U) Negative Negative [facility] Protein Auto test strip (U) [Mass/Vol]Ordered By: Taz Barnes on 05-18-2022 Protein (U) [Mass/Vol] 100 mg/dL Negative [facility] Specific gravity Auto test s trip (U) [Rel density]Ordered By: Taz Barnes on 05-18-2022 Specific gravity (U) [Rel density] 1.010 1.001-1.03 0 [facility] Squamous epithelial cells de tection in urine sediment by light microscopyOrdered By: Taz Barnes on 05-18-2022 Epithelial cells.squamous LM Ql (Urine sed) 1-2 [HPF] 0-2 [facility] Urine bacteria detection by automated methodOrdered By: Taz Barnes on 05-18-2022 Bacteria Auto Ql (U) None seen None Seen [facility] Urine clarity by refractomet ry automatedOrdered By: Taz Barnes on 05-18-2022 Clarity Refractometry automated (U) Turbid Clear [facility] Urine culture routineOrdered By: Taz Barnes on 05-18-2022 Bacteria identified Cx Nom (U) No Growth 2 Days [facility] Bacteria identified Cx Nom (U) No Growth 2 Days [facility] Urine glucose measurement by automated test strip (mass/volume)Ordered By: Taz Barnes on 05-18-2022 Glucose Auto test strip (U) [Mass/Vol] Normal mg/dL Normal [facility] Urine hemoglobin detection b y automated test stripOrdered By: Taz Barnes on 05-18-2022 Hemoglobin Auto test strip Ql (U) 2+ Negative [facility] Urine leukocyte esterase det ection by automated test stripOrdered By: Taz Barnes on 05-18-2022 Leukocyte esterase Auto test strip Ql (U) 4+ Negative [facility] Urobilinogen Auto test strip (U) [Mass/Vol]Ordered By: Taz Barnes on 05-18-2022 Urobilinogen (U) [Mass/Vol] Normal mg/dL Normal [facility] Yeast detection in urine sed iment by light microscopyOrdered By: Taz Barnes on 05-18-2022 Yeast LM Ql (Urine sed) None seen [HPF] None Se en [facility] pH Auto test strip (U)Ordere d By: Taz Barnes on 05-18-2022 pH (U) 7.5 [pH] 5.0-9.0 [facility] Activated partial thrombopla stin time (aPTT) in platelet poor plasma by coagulation aOrdered By: Taz Barnes on 05-16-2022 aPTT Coag (PPP) [Time] 29.5 s 25.1-36.5 [facility] Body fluid albumin measureme nt (mass/volume)Ordered By: Taz Barnes on 05-16-2022 Albumin (Body fld) [Mass/Vol] 2.9 g/dL 3.2-5.5 [facility] CBC AUTO DIFFon 05-16-2022 BASO # 0.0 103/ul Normal 0.0-0.1 [facility] Comment on above: Performed By: #### C BC #### [facility] [address] [place] [address] Dr. Karen Pierce Basophils/100 WBC (Bld) 0.3 % Normal 0.2-2.0 [facility] Comment on above: Performed By: #### C BC #### [facility] [address] [place] [address] Dr. Karen Pierce EO # 0.1 103/ul Normal 0.0-0.7 [facility] Comment on above: Performed By: #### C BC #### [facility] [address] [place] [address] Dr. Karen Pierce Eosinophils/100 WBC (Bld) 0.7 % Critically low 0.9-7.0 [facility] Comment on above: Performed By: #### C BC #### [facility] [address] [place] [address] Dr. Karen Pierce Erythrocyte distribution width (RBC) [Ratio] 14.8 % Normal 11.0-15.0 [facility] Comment on above: Performed By: #### C BC #### [facility] [address] [place] [address] Dr. Karen Pierce Hematocrit (Bld) [Volume fraction] 39.4 % Critically low 42.0-54.0 [facility] Comment on above: Performed By: #### C BC #### [facility] [address] [place] [address] Dr. Karen Pierce Hemoglobin (Bld) [Mass/Vol] 12.6 g/dL Critically low 14.0-18.0 [facility] Comment on above: Performed By: #### C BC #### [facility] [address] [place] [address] Dr. Karen Pierce IG # 0.04 10e3/ul Critically high 0.00-0.03 [facility] Comment on above: Performed By: #### C BC #### [facility] [address] [place] [address] Dr. Karen Pierce IG % 0.4 % Normal 0.0-0.5 [facility] Comment on above: Performed By: #### C BC #### [facility] [address] [place] [address] Dr. Karen Pierce LYMPH # 1.2 103/ul Normal 1.2-3.8 [facility] Comment on above: Performed By: #### C BC #### [facility] [address] [place] [address] Dr. Karen Pierce Lymphocytes/100 WBC (Bld) 11.8 % Critically low 20.5-60.0 [facility] Comment on above: Performed By: #### C BC #### [facility] [address] [place] [address] Dr. Karen Pierce MANUAL DIFF REQ NO Normal [facility] Comment on above: Performed By: #### C BC #### [facility] [address] [place] [address] Dr. Karen Pierce MCH (RBC) [Entitic mass] 27.5 pg Normal 25.9-34.0 [facility] Comment on above: Performed By: #### C BC #### [facility] [address] [place] [address] Dr. Karen Pierce MCHC (RBC) [Mass/Vol] 32.0 g/dL Normal 29.9-35.2 [facility] Comment on above: Performed By: #### C BC #### [facility] [address] [place] [address] Dr. Karen Pierce MCV (RBC) [Entitic vol] 86.0 fL Normal 80.0-94.0 [facility] Comment on above: Performed By: #### C BC #### [facility] [address] [place] [address] Dr. Karen Pierce MONO # 1.4 103/ul Critically high 0.3-0.8 [facility] Comment on above: Performed By: #### C BC #### [facility] [address] [place] [address] Dr. Karen Pierce Monocytes/100 WBC (Bld) 13.8 % Critically high 1.7-12. 0 [facility] Comment on above: Performed By: #### C BC #### [facility] [address] [place] [address] Dr. Karen Pierce NEUT # 7.6 103/ul Critically high 1.4-6.5 [facility] Comment on above: Performed By: #### C BC #### [facility] [address] [place] [address] Dr. Karen Pierce Neutrophils/100 WBC (Bld) 73.0 % Normal 43.0-75.0 [facility] Comment on above: Performed By: #### C BC #### [facility] [address] [place] [address] Dr. Karen Piecre Platelet mean volume (Bld) [Entitic vol] 10.6 fL Normal 9.5-13.5 [facility] Comment on above: Performed By: #### C BC #### [facility] [address] [place] [address] Dr. Karen Pierce PLT 193 103/ul Normal 150-450 [facility] Comment on above: Performed By: #### C BC #### [facility] [address] [place] [address] Dr. Karen Pierce RBC 4.58 106/ul Critically low 4.70-6.10 [facility] Comment on above: Performed By: #### C BC #### [facility] [address] [place] [address] Dr. Karen Pierce WBC 10.4 103/ul Normal 4.0-11.0 [facility] Comment on above: Performed By: #### C BC #### [facility] [address] [place] [address] ABD/PELVIS WO CONon [...] LORENZO SCHERER Date: 2022-05-16 09:21 Normal [facility] CULTURE URINEon 05-16-2022 CULTURE URINE Culture Observations : MODERATE GROWTH OF MIXED SKIN JAS. NO POTENTIAL PATHOGENS SEEN. Normal [facility] Comment on above: Performed By: #### U RTPCR #### [facility] [address] [address] [address] Karen Pierce Covid-19 PCR ([facility])on 04-26 SARS-CoV-2 (COVID-19) RNA KARI+probe Ql (Unsp spec) Not detected Normal NOT DETECTED [facility] Comment on above: Result Comment: When [...] for this test is supported by the [place] of [employer] and Human Service's declaration that [...] used). Performed By: #### U A #### [facility] [address] [place] [address] [id number] [address] Karen Pierce Creatinine [Mass/volume] in UrineOrdered By: Taz Barnes on 05-16-2022 Creatinine (U) [Mass/Vol] 68.1 mg/dL [facility] Comment on above: No reference range e stablished ER URINE PROFILEon 2 Bilirubin Ql (U) Negative Normal NEGATIVE [facility] Comment on above: Performed By: #### U RTPCR #### [facility] [address] [place] [address] Dr. Karen Pierce Clarity (U) CLEAR Normal CLEAR [facility] Comment on above: Performed By: #### U RTPCR #### [facility] [address] [place] [address] Dr. Karen Pierce Color (U) YELLOW Normal YELLOW [facility] Comment on above: Performed By: #### U RTPCR #### [facility] [address] [place] [address] Dr. Karen Pierce ERUAHD A micrscopic examina tion will be performed if indicated. Normal [facility] Comment on above: Performed By: #### U RTPCR #### [facility] [address] [place] [address] Dr. Karen Pierce Glucose Ql (U) Negative Normal NEGATIVE [facility] Comment on above: Performed By: #### U RTPCR #### [facility] [address] [place] [address] Dr. Karen Pierce Hemoglobin Ql (U) MODERATE Abnormal NEGATIVE [facility] Comment on above: Performed By: #### U RTPCR #### [facility] [address] [place] [address] Dr. Karen Pierce Ketones Ql (U) Negative Normal NEGATIVE [facility] Comment on above: Performed By: #### U RTPCR #### [facility] [address] [place] [address] Dr. Karen Pierce LEUKOCYTES LARGE Abnormal NEGATIVE [facility] Comment on above: Performed By: #### U RTPCR #### [facility] [address] [place] [address] Dr. Karen Pierce Nitrite Ql (U) Negative Normal NEGATIVE [facility] Comment on above: Performed By: #### U RTPCR #### [facility] [address] [place] [address] Dr. Karen Pierce pH (U) 5.5 [pH] Normal 5-9 [facility] Comment on above: Performed By: #### U RTPCR #### [facility] [address] [place] [address] Dr. Karen Pierce SPEC GRAVITY <=1.005 Abnormal 1.005-<=1. 025 [facility] Comment on above: Performed By: #### U RTPCR #### [facility] [address] [place] [address] Dr. Karen Pierce UA PROTEIN Negative Normal NEGATIVE/ TRACE [facility] Comment on above: Performed By: #### U RTPCR #### [facility] [address] [place] [address] Dr. Karen Pierce UR MICRO IND INDICATED Normal [facility] Comment on above: Performed By: #### U RTPCR #### [facility] [address] [place] [address] Dr. Kaern Pierce Urobilinogen Qn (U) 0.2 {Tonio'U}/dL Normal 0.2 - 1. 0 [facility] Comment on above: Performed By: #### U RTPCR #### [facility] [address] [place] [address] Dr. Karen Pierce Globulin Calc (S) [Mass/Vol] Ordered By: Taz Barnes on 05-16-2022 Globulin (S) [Mass/Vol] 3.5 g/dL [facility] - CoagulationOrde red By: Taz Barnes on 05-16-2022 PT Coag (PPP) [Time] 14.2 s 9.0-12.9 [facility] PROF 14(COMP METB)on 022 Albumin [Mass/Vol] 3.1 g/dL Critically low 3.4-5.0 [facility] Comment on above: Performed By: #### U RTPCR #### [facility] [address] [place] [address] Dr. Karen Pierce Albumin/Globulin [Mass ratio] 0.7 {ratio} Normal [facility] Comment on above: Performed By: #### U RTPCR #### [facility] [address] [place] [address] Dr. Karen Pierce ALP [Catalytic activity/Vol] 96 U/L Normal 46-116 [facility] Comment on above: Performed By: #### U RTPCR #### [facility] [address] [address] [address] Karen Pierce ALT [Catalytic activity/Vol] 46 U/L Normal 16-63 [facility] Comment on above: Performed By: #### U RTPCR #### [facility] [address] [place] [address] Dr. Karen Pierce Anion gap [Moles/Vol] 19.7 mmol/L Normal Th e [facility] Comment on above: Performed By: #### U RTPCR #### [facility] [address] [address] [address] Karen Pierce AST [Catalytic activity/Vol] 21 U/L Normal 15-37 [facility] Comment on above: Performed By: #### U RTPCR #### [facility] [address] [place] [address] Dr. Karen Pierce Bilirubin [Mass/Vol] 0.3 mg/dL Normal 0.2-1.0 [facility] Comment on above: Performed By: #### U RTPCR #### [facility] [address] [place] [address] Dr. Karen Pierce Calcium [Mass/Vol] 8.9 mg/dL Normal 8.5-10.1 [facility] Comment on above: Performed By: #### U RTPCR #### [facility] [address] [place] [address] Dr. Karen Pierce Chloride [Moles/Vol] 101 mmol/L Normal 98-107 [facility] Comment on above: Performed By: #### U RTPCR #### [facility] [address] [address] [address] Karen Pierce CO2 [Moles/Vol] 18.3 mmol/L Critically low 21.0-32.0 [facility] Comment on above: Performed By: #### U RTPCR #### [facility] [address] [address] [address] Karen Pierce Creatinine [Mass/Vol] 8.99 mg/dL Critically high 0.70-1.30 [facility] Comment on above: Performed By: #### U RTPCR #### [facility] [address] [address] [address] Karen Pierce EGFR-AF TURKMEN 7 mL/min/1.73m2 Critically low >=60 [facility] Comment on above: Performed By: #### U RTPCR #### [facility] [address] [address] [address] Karen Pierce EGFR-NON AF TURKMEN 6 mL/min/1.73m2 Critically low >=60 [facility] Comment on above: Performed By: #### U RTPCR #### [facility] [address] [address] [address] Karen Pierce Globulin (S) [Mass/Vol] 4.7 g/dL Normal [facility] Comment on above: Performed By: #### U RTPCR #### [facility] [address] [place] [address] Dr. Karen Pierce Glucose [Mass/Vol] 110 mg/dL Critically high 74-106 [facility] Comment on above: Performed By: #### U RTPCR #### [facility] [address] [address] [address] Karen Pierce Potassium [Moles/Vol] 5.0 mmol/L Normal 3.5-5.1 [facility] Comment on above: Performed By: #### U RTPCR #### [facility] [address] [place] [address] Dr. Karen Pierce Protein [Mass/Vol] 7.8 g/dL Normal 6.4-8.2 [facility] Comment on above: Performed By: #### U RTPCR #### [facility] [address] [address] [address] Karen Pierce Sodium [Moles/Vol] 134 mmol/L Critically low 136-145 [facility] Comment on above: Performed By: #### U RTPCR #### [facility] [address] [address] [address] Karen Pierce Urea nitrogen [Mass/Vol] 129.0 mg/dL Critically high 7.0-18.0 [facility] Comment on above: Performed By: #### U RTPCR #### [facility] [address] [address] [address] aKren Pierce Urea nitrogen/Creatinine [Mass ratio] 14.3 mg/mg Normal [facility] Comment on above: Performed By: #### U RTPCR #### [facility] [address] [address] [address] Karen Pierce Platelet poor plasma interna tional normalized ratio (INR) by coagulation assay (relatOrdered By: Taz Barnes on 05-16-2022 INR Coag (PPP) [Relative time] 1.3 {INR} [facility] Comment on above: INR Therapeutic Rang [...] on 05-16-2022 Protein [Mass/Vol] 6.4 g/dL 6.1-7.9 [facility] Serum or plasma alanine bal otransferase measurement without P-5'-P (enzymatic activiOrdered By: Taz Barnes on 05-16-2022 ALT No additional P-5'-P [Catalytic activity/Vol] 38 U/L 10-60 [facility] Serum or plasma albumin/glob ulin mass ratioOrdered By: Taz Barnes on 05-16-2022 Albumin/Globulin [Mass ratio] 0.8 {ratio} [facility] Serum or plasma alkaline deonte sphatase measurement (enzymatic activity/volume)Ordered By: Taz Barnes on 05-16-2022 ALP [Catalytic activity/Vol] 78 U/L 32-92 [facility] Serum or plasma aspartate am inotransferase measurement (enzymatic activity/volume)Ordered By: Taz Barnes on 05-16-2022 AST [Catalytic activity/Vol] 19 U/L 10-42 [facility] Serum or plasma total biliru bin measurement (mass/volume)Ordered By: Taz Barnes on 05-16-2022 Bilirubin [Mass/Vol] 0.4 mg/dL 0.3-1.2 [facility] URINE MICROSCOPIC ONLYon BACTERIA SMALL Abnormal NONE SEEN [facility] Comment on above: Performed By: #### U RTPCR #### [facility] [address] [place] [address] Dr. Karen Pierce Bacteria identified Cx Nom (U) INDICATED Normal [facility] Comment on above: Performed By: #### U RTPCR #### [facility] [address] [place] [address] Dr. Karen Pierce CAST NONE SEEN Normal NONE SEEN [facility] Comment on above: Performed By: #### U RTPCR #### [facility] [address] [place] [address] Dr. Karen Pierce Crystals LM Nom (Urine sed) NONE SEEN Normal NONE SEEN [facility] Comment on above: Performed By: #### U RTPCR #### [facility] [address] [place] [address] Dr. Karen Pierce Epithelial cells LM Ql (Urine sed) NONE SEEN Normal NONE SEEN /RARE [facility] Comment on above: Performed By: #### U RTPCR #### [facility] [address] [place] [address] Dr. Karen Pierce MUCOUS NONE SEEN Normal NONE SEEN [facility] Comment on above: Performed By: #### U RTPCR #### [facility] [address] [place] [address] Dr. Karen Pierce RBC 20-50 Abnormal 0-2 [facility] Comment on above: Performed By: #### U RTPCR #### [facility] [address] [place] [address] Dr. Karen Pierce WBC (U) [#/Vol] /uL Abnormal NONE SEEN [facility] Comment on above: Performed By: #### U RTPCR #### [facility] [address] [place] [address] Dr. Karen Pierce Urine sodium measurement (mo [...] LORENZO SCHERER Date: 2022-05-16 09:25 Normal [facility] CBC AUTO DIFFon 05-15-2022 BASO # 0.0 103/ul Normal 0.0-0.1 [facility] Comment on above: Performed By: #### U A #### [facility] [address] [place] [address] Dr. Karen Pierce Basophils/100 WBC (Bld) 0.3 % Normal 0.2-2.0 [facility] Comment on above: Performed By: #### U A #### [facility] [address] [place] [address] Dr. Karen Pierce EO # 0.1 103/ul Normal 0.0-0.7 [facility] Comment on above: Performed By: #### U A #### [facility] [address] [address] [address] Karen Pierce Eosinophils/100 WBC (Bld) 0.7 % Critically low 0.9-7.0 [facility] Comment on above: Performed By: #### U A #### [facility] [address] [place] [address] Dr. Karen Pierce Erythrocyte distribution width (RBC) [Ratio] 14.9 % Normal 11.0-15.0 [facility] Comment on above: Performed By: #### U A #### [facility] [address] [place] [address] Dr. Karen Pierce Hematocrit (Bld) [Volume fraction] 39.8 % Critically low 42.0-54.0 [facility] Comment on above: Performed By: #### U A #### [facility] [address] [place] [address] Dr. Karen Pierce Hemoglobin (Bld) [Mass/Vol] 12.7 g/dL Critically low 14.0-18.0 [facility] Comment on above: Performed By: #### U A #### [facility] [address] [place] [address] Dr. Karen Pierce IG # 0.06 10e3/ul Critically high 0.00-0.03 [facility] Comment on above: Performed By: #### U A #### [facility] [address] [place] [address] Dr. Karen Pierce IG % 0.5 % Normal 0.0-0.5 [facility] Comment on above: Performed By: #### U A #### [facility] [address] [place] [address] Dr. Karen Pierce LYMPH # 0.9 103/ul Critically low 1.2-3.8 [facility] Comment on above: Performed By: #### U A #### [facility] [address] [place] [address] Dr. Karen Pierce Lymphocytes/100 WBC (Bld) 7.1 % Critically low 20.5-60.0 [facility] Comment on above: Performed By: #### U A #### [facility] [address] [place] [address] Dr. Karen Pierce MANUAL DIFF REQ NO Normal [facility] Comment on above: Performed By: #### U A #### [facility] [address] [place] [address] Dr. Karen Pierce MCH (RBC) [Entitic mass] 27.7 pg Normal 25.9-34.0 [facility] Comment on above: Performed By: #### U A #### [facility] [address] [place] [address] Dr. Karen Pierce MCHC (RBC) [Mass/Vol] 31.9 g/dL Normal 29.9-35.2 [facility] Comment on above: Performed By: #### U A #### [facility] [address] [place] [address] Dr. Karen Pierce MCV (RBC) [Entitic vol] 86.7 fL Normal 80.0-94.0 [facility] Comment on above: Performed By: #### U A #### [facility] [address] [address] [address] Karen Pierce MONO # 1.0 103/ul Critically high 0.3-0.8 [facility] Comment on above: Performed By: #### U A #### [facility] [address] [place] [address] Dr. Karen Pierce Monocytes/100 WBC (Bld) 8.5 % Normal 1.7-12.0 [facility] Comment on above: Performed By: #### U A #### [facility] [address] [place] [address] Dr. Karen Pierce NEUT # 9.9 103/ul Critically high 1.4-6.5 [facility] Comment on above: Performed By: #### U A #### [facility] [address] [place] [address] Dr. Karen Pierce Neutrophils/100 WBC (Bld) 82.9 % Critically high 43.0-75.0 [facility] Comment on above: Performed By: #### U A #### [facility] [address] [place] [address] Dr. Karen Pierce Platelet mean volume (Bld) [Entitic vol] 9.7 fL Normal 9.5-13.5 [facility] Comment on above: Performed By: #### U A #### [facility] [address] [place] [address] Dr. Karen Pierce PLT 206 103/ul Normal 150-450 [facility] Comment on above: Performed By: #### U A #### [facility] [address] [place] [address] Dr. Karen Pierce RBC 4.59 106/ul Critically low 4.70-6.10 [facility] Comment on above: Performed By: #### U A #### [facility] [address] [place] [address] Dr. Karen Pierce WBC 11.9 103/ul Critically high 4.0-11.0 [facility] Comment on above: Performed By: #### U A #### [facility] [address] [place] [address] Dr. Karen Pierce LIPASEon 05-15-2022 Lipase [Catalytic activity/Vol] 340.0 U/L Normal 73.0-393.0 [facility] Comment on above: Performed By: #### U A #### [facility] [address] [place] [address] Dr. Karen Pierce PROF 14(COMP METB)on 022 Albumin [Mass/Vol] 3.1 g/dL Critically low 3.4-5.0 [facility] Comment on above: Performed By: #### U A #### [facility] [address] [place] [address] Dr. Karen Pierce Albumin/Globulin [Mass ratio] 0.7 {ratio} Normal [facility] Comment on above: Performed By: #### U A #### [facility] [address] [place] [address] Dr. Karen Pierce ALP [Catalytic activity/Vol] 105 U/L Normal 46-116 [facility] Comment on above: Performed By: #### U A #### [facility] [address] [place] [address] Dr. Karen Pierce ALT [Catalytic activity/Vol] 49 U/L Normal 16-63 [facility] Comment on above: Performed By: #### U A #### [facility] [address] [place] [address] Dr. Karen Pierce Anion gap [Moles/Vol] 18.4 mmol/L Normal [facility] Comment on above: Performed By: #### U A #### [facility] [address] [place] [address] Dr. Karen Pierce AST [Catalytic activity/Vol] 20 U/L Normal 15-37 [facility] Comment on above: Performed By: #### U A #### [facility] [address] [place] [address] Dr. Karen Pierce Bilirubin [Mass/Vol] 0.3 mg/dL Normal 0.2-1.0 [facility] Comment on above: Performed By: #### U A #### [facility] [address] [place] [address] Dr. Karen Pierce Calcium [Mass/Vol] 9.1 mg/dL Normal 8.5-10.1 [facility] Comment on above: Performed By: #### U A #### [facility] [address] [place] [address] Dr. Karen Pierce Chloride [Moles/Vol] 103 mmol/L Normal 98-107 [facility] Comment on above: Performed By: #### U A #### [facility] [address] [place] [address] Dr. Karen Pierce CO2 [Moles/Vol] 20.1 mmol/L Critically low 21.0-32.0 [facility] Comment on above: Performed By: #### U A #### [facility] [address] [place] [address] Dr. Karen Pierce Creatinine [Mass/Vol] 9.58 mg/dL Critically high 0.70-1.30 [facility] Comment on above: Performed By: #### U A #### [facility] [address] [place] [address] Dr. Karen Pierce EGFR-AF TURKMEN 6 mL/min/1.73m2 Critically low >=60 [facility] Comment on above: Performed By: #### U A #### [facility] [address] [place] [address] Dr. Karen Pierce EGFR-NON AF TURKMEN 5 mL/min/1.73m2 Critically low >=60 [facility] Comment on above: Performed By: #### U A #### [facility] [address] [place] [address] Dr. Karen Pierce Globulin (S) [Mass/Vol] 4.6 g/dL Normal [facility] Comment on above: Performed By: #### U A #### [facility] [address] [address] [address] Karen Pierce Glucose [Mass/Vol] 114 mg/dL Critically high 74-106 [facility] Comment on above: Performed By: #### U A #### [facility] [address] [address] [address] Karen Pierce Potassium [Moles/Vol] 5.5 mmol/L Critically high 3.5-5.1 [facility] Comment on above: Performed By: #### U A #### [facility] [address] [address] [address] Karen Pierce Protein [Mass/Vol] 7.7 g/dL Normal 6.4-8.2 [facility] Comment on above: Performed By: #### U A #### [facility] [address] [address] [address] Karen Pierce Sodium [Moles/Vol] 136 mmol/L Normal 136-145 [facility] Comment on above: Performed By: #### U A #### [facility] [address] [address] [address] Karen Pierce Urea nitrogen [Mass/Vol] 134.0 mg/dL Critically high 7.0-18.0 [facility] Comment on above: Performed By: #### U A #### [facility] [address] [place] [address] Dr. Karen Pierce Urea nitrogen/Creatinine [Mass ratio] 14.0 mg/mg Normal [facility] Comment on above: Performed By: #### U A #### [facility] [address] [address] [address] Karen Pierce PROF CHEM 8 (BAS METB)on Anion gap [Moles/Vol] 12.6 mmol/L Normal [facility] Comment on above: Performed By: #### B MP #### [facility] [address] [place] [address] Dr. Karen Pierce Calcium [Mass/Vol] 8.7 mg/dL Normal 8.5-10.1 [facility] Comment on above: Performed By: #### B MP #### [facility] [address] [place] [address] Dr. Karen Pierce Chloride [Moles/Vol] 103 mmol/L Normal 98-107 [facility] Comment on above: Performed By: #### B MP #### [facility] [address] [address] [address] Karen Pierce CO2 [Moles/Vol] 27.3 mmol/L Normal 21.0-32.0 [facility] Comment on above: Performed By: #### B MP #### [facility] [address] [place] [address] Dr. Karen Pierce Creatinine [Mass/Vol] 1.26 mg/dL Normal 0.70-1.30 [facility] Comment on above: Performed By: #### B MP #### [facility] [address] [place] [address] Dr. Karen Pierce EGFR-AF TURKMEN >60 Normal >=60 [facility] Comment on above: Performed By: #### B MP #### [facility] [address] [place] [address] Dr. Karen Pierce EGFR-NON AF TURKMEN 55 mL/min/1.73m2 Critically low >=60 [facility] Comment on above: Performed By: #### B MP #### [facility] [address] [place] [address] Dr. Karen Pierce Glucose [Mass/Vol] 111 mg/dL Critically high 74-106 [facility] Comment on above: Performed By: #### B MP #### [facility] [address] [place] [address] Dr. Karen Pierce Potassium [Moles/Vol] 3.9 mmol/L Normal 3.5-5.1 [facility] Comment on above: Performed By: #### B MP #### [facility] [address] [place] [address] Dr. Karen Pierce Sodium [Moles/Vol] 139 mmol/L Normal 136-145 [facility] Comment on above: Performed By: #### B MP #### [facility] [address] [place], [place] [address] Dr. Karen Pierce Urea nitrogen [Mass/Vol] 21.0 mg/dL Critically high 7.0-18.0 [facility] Comment on above: Performed By: #### B MP #### [facility] [address] [place], [place] [address] Dr. Karen Pierce Urea nitrogen/Creatinine [Mass ratio] 16.7 mg/mg Normal [facility] Comment on above: Performed By: #### B MP #### [facility] [address] [place], [place] [address] Dr. Karen Pierce [facility] Metabolic Pane [facility] 05-11-2021 Albumin [Mass/Vol] 4.5 g/dL Normal 3.6-5.1 [facility] Comment on above: Performed By: #### C ROBYN, LIPD #### [facility] [address] [place], [place] [id number] Albumin/Globulin [Mass ratio] 2.0 {ratio} Normal 1.0-2.5 [facility] Comment on above: Performed By: #### C ROBYN, LIPD #### [facility] [address] [id number] ALP [Catalytic activity/Vol] 97 U/L Normal 40-129 [facility] Comment on above: Performed By: #### C MP, LIPD #### [facility] [address] [id number] ALT [Catalytic activity/Vol] 18 U/L Normal 9-46 [facility] Comment on above: Result Comment: 04/25 Female reference range changed. Performed By: #### C MP, LIPD #### [facility] [address] [place], [place] [id number] Anion gap [Moles/Vol] 17 mmol/L Normal 12-20 [facility] Comment on above: Result Comment: Effe ctive 05/31/2019 reference range changed. Performed By: #### C MP, LIPD #### [facility] [address] [facility] [place] [id number] AST [Catalytic activity/Vol] 15 U/L Normal 10-40 [facility] Comment on above: Performed By: #### C MP, LIPD #### [facility] [address] [facility] [place] [id number] Bilirubin [Mass/Vol] 0.55 mg/dL Normal 0.30-1.20 [facility] Comment on above: Performed By: #### C MP, LIPD #### [facility] [address] [facility] [place] [id number] BUN/CREA 17 Ratio Normal 6-22 [facility] Comment on above: Performed By: #### C MP, LIPD #### [facility] [address] [facility] [id number] Calcium [Mass/Vol] 9.8 mg/dL Normal 8.6-10.2 [facility] Comment on above: Performed By: #### C MP, LIPD #### [facility] [address] [facility] [place] [id number] Chloride [Moles/Vol] 106 mmol/L Normal 98-107 [facility] Comment on above: Performed By: #### C MP, LIPD #### [facility] [address] [facility] [place] [id number] CO2 [Moles/Vol] 23 mmol/L Normal 20-31 [facility] Comment on above: Performed By: #### C MP, LIPD #### [facility] Laboratory [address] [facility] [place] [id number] Creatinine [Mass/Vol] 1.2 mg/dL Normal 0.7-1.4 [facility] Comment on above: Performed By: #### C MP, LIPD #### [facility] [address] [place], [place] [id number] eGFRAA 73 mL/min/1.73m2 Normal >60 [facility] Comment on above: Performed By: #### C MP, LIPD #### [facility] [address] [place], [place] [id number] eGFRNAA 60 mL/min/1.73m2 Low >60 [facility] Comment on above: Performed By: #### C MP, LIPD #### [facility] [address] [place], [place] [id number] Globulin (S) [Mass/Vol] 2.3 g/dL Normal 1.9-3.7 [facility] Specialist Comment on above: Performed By: #### C MP, LIPD #### [facility] [address] [place], [place] [id number] Glucose [Mass/Vol] 105 mg/dL High 65-99 [facility] Diet Clerk Comment on above: Result Comment: For FASTING Glucose --- ADA reference ranges: Normal 65-99 mg/dl Prediabetes 100-125 Diabetes >/= 126 Performed By: #### C MP, LIPD #### [facility] [address] [place], [place] [id number] Potassium [Moles/Vol] 4.1 mmol/L Normal 3.5-5.5 [facility] Specialist Comment on above: Performed By: #### C MP, LIPD #### [facility] [address] [place], [place] [id number] Protein [Mass/Vol] 6.8 g/dL Normal 6.1-8.1 [facility] Diet Clerk Comment on above: Performed By: #### C MP, LIPD #### [facility] [address] [place], [place] [id number] Sodium [Moles/Vol] 142 mmol/L Normal 135-146 [facility] Diet Clerk Comment on above: Performed By: #### C MP, LIPD #### [facility] [address] [place], [place] [id number] Urea nitrogen [Mass/Vol] 20 mg/dL Normal 7-25 [facility] Specialist Comment on above: Performed By: #### C MP, LIPD #### [facility] [address] [place], [place] [id number] Lipid Panelon 05-11-2021 Cholesterol [Mass/Vol] 109 mg/dL Low 125-200 No [facility] Diet Clerk Comment on above: Result Comment: Low risk < 200mg/dL Borderline risk 201-239 mg/dl High risk > or equal to 240 Performed By: #### C MP, LIPD #### [facility] [address] [place], [place] [id number] Cholesterol in HDL [Mass/Vol] 30 mg/dL Low >40 [facility] Specialist Comment on above: Result Comment: High Cardiovascular Risk HDL <40 mg/dL Low Cardiovascular Risk HDL > or equal to 60 mg/dl Performed By: #### C MP, LIPD #### [facility] [address] [place], [place] [id number] Cholesterol in LDL [Mass/Vol] 54 mg/dL Normal [facility] Specialist Comment on above: Result Comment: LDL ATP III CLASSIFICATION LDL less than 100 mg/dl Optimal LDL 100-129 mg/dl Near or above optimal LDL 130-159 Borderline high LDL 160-189 High LDL greater than 189 mg/dl Very High Performed By: #### C MP, LIPD #### [facility] [address] [place], [place] [id number] Cholesterol in VLDL [Mass/Vol] 25 mg/dL Normal [facility] Diet Clerk Comment on above: Performed By: #### C MP, LIPD #### [facility] [address] [place], [place] [id number] Cholesterol.total/Sonya sterol in HDL [Mass ratio] 4 {ratio} Normal [facility] Specialist Comment on above: Performed By: #### C MP, LIPD #### [facility] [address] [place], [place] [id number] Triglyceride [Mass/Vol] 126 mg/dL Normal 30-150 N [facility] Specialist Comment on above: Result Comment: TRIG ATPIII CLASSIFICATIONS TRIG less than 150 mg/dl Normal TRIG 150-199 mg/dl Borderline High TRIG 200-500 mg/dl High TRIG greather than 500 mg/dl Very High Performed By: #### C MP, LIPD #### [facility] [address] [place], [place] [id number] Vital Signs Date Time Vital Sign Value Performing Clinician Facility 06-30-2023 14:17-0500 Blood Pressure Location Katia SAMUELS [facility] 06-30-2023 14:17-0500 Diastolic blood pressure 77 mm[Hg] Katia SAMUELS [facility] 06-30-2023 14:17-0500 Heart rate 70 /min Katia SAMUELS [facility] 06-30-2023 14:17-0500 Respiratory rate 16 /min Katia SAMUELS [facility] 06-30-2023 14:17-0500 Systolic blood pressure 109 mm[Hg] Katia SAMUELS [facility] 04-15-2023 14:00-0500 Body height 187.96 cm Celia Danielsfrancoise Other [employer] [facility] [employer] Other 04-15-2023 14:00-0500 Body mass index (BMI) [Ratio] 28.73 kg/m2 Jonhcelestino [employer] Other [employer] Other 04-15-2023 14:00-0500 Body temperature 96.8 [degF] Celia [facility] [employer] Other [employer] Other 04-15-2023 14:00-0500 Body weight 101.52 kg Celia Danielss Other [employer] Other 04-15-2023 14:00-0500 Diastolic blood pressure 100 mm[Hg] Azcelestino Terezacatherines Other [employer] Other 04-15-2023 14:00-0500 Respiratory rate 18 /min Azcelestino [employer] Other [employer] Other 04-15-2023 14:00-0500 SaO2% (BldA) [Mass fraction] 96 % Azcelestino [employer] Other [employer] Other 04-15-2023 14:00-0500 Systolic blood pressure 161 mm[Hg] Celia Ramos Other [facility] [employer] Other 03-11-2023 13:38-0400 Blood Pressure Location Katia SAMUELS [facility] 03-11-2023 13:38-0400 Diastolic blood pressure 100 mm[Hg] Katia SAMUELS [facility] 03-11-2023 13:38-0400 Heart rate 72 /min Katia SAMUELS [facility] 03-11-2023 13:38-0400 Systolic blood pressure 150 mm[Hg] Katia SAMUELS [facility] 01-22-2023 09:57-0400 Body height 187.96 cm Stanley Emerson Work Phone: [facility] 250 DO Work Phone: 01-22-2023 09:57-0400 Body mass index (BMI) [Ratio] 27.35 kg/m2 Stanley Emerson Work Phone: [facility] 250 DO Work Phone: 01-22-2023 09:57-0400 Body surface area Derived from formula 2.23 m2 Stanley Emerson Work Phone: [facility] 250 DO Work Phone: 01-22-2023 09:57-0400 Body weight 96.62 kg Stanley Emerson Work Phone: [facility] 250 DO Work Phone: 01-22-2023 09:57-0400 Diastolic blood pressure 88 mm[Hg] Stanley Emerson Work Phone: [facility] 250 DO Work Phone: 01-22-2023 09:57-0400 Heart rate 72 /min Stanley Emerson Work Phone: [facility] 250 DO Work Phone: 01-22-2023 09:57-0400 Systolic blood pressure 126 mm[Hg] Stanley Emerson Work Phone: [facility] 250 DO Work Phone: 08-21-2022 14:30-0400 Body height 187.96 cm Carlene Kasper Other [employer] Other 08-21-2022 14:30-0400 Body mass index (BMI) [Ratio] 26.32 kg/m2 Carlene Kasper Other [employer] Other 08-21-2022 14:30-0400 Body temperature 97.8 [degF] Carlene Kasper Other [employer] Other 08-21-2022 14:30-0400 Body weight 92.99 kg Carlene Ranjith Other [employer] Other 08-21-2022 14:30-0400 Diastolic blood pressure 82 mm[Hg] Carlene Kasper Other [employer] Other 08-21-2022 14:30-0400 SaO2% (BldA) [Mass fraction] 96 % Carlene Kasper Other [employer] Other 08-21-2022 14:30-0400 Systolic blood pressure 124 mm[Hg] Carlene Kasper Other [employer] Other 07-31-2022 07:25-0500 Blood Pressure Location Katia SAMUELS [facility] 07-31-2022 07:25-0500 Diastolic blood pressure 89 mm[Hg] Katia SAMUELS [facility] 07-31-2022 07:25-0500 Heart rate 70 /min Katia SAMUELS [facility] 07-31-2022 07:25-0500 Respiratory rate 16 /min Katia SAMUELS [facility] 07-31-2022 07:25-0500 Systolic blood pressure 130 mm[Hg] Katia SAMUELS [facility] 07-25-2022 09:45-0500 Body height 187.96 cm Margarito Valentine Other [employer] [facility] [employer] Other 07-25-2022 09:45-0500 Body mass index (BMI) [Ratio] 26.32 kg/m2 Margarito Valentine Other [employer] [facility] [employer] Other 07-25-2022 09:45-0500 Body temperature 96.2 [degF] Margarito Valentine Other [employer] Other 07-25-2022 09:45-0500 Body weight 92.99 kg Margarito Valentine Other [employer] Other 07-25-2022 09:45-0500 Diastolic blood pressure 60 mm[Hg] Margarito Valentine Other [employer] Other 07-25-2022 09:45-0500 SaO2% (BldA) [Mass fraction] 97 % Margarito Valentine Other [employer] [facility] [employer] Other 07-25-2022 09:45-0500 Systolic blood pressure 110 mm[Hg] Margarito Valentine Other [employer] [facility] [employer] Other 07-03-2022 07:34-0500 Body temperature 98.9 [degF] MD Stanley Emerson Work Phone: [facility] 07-03-2022 07:34-0500 Diastolic blood pressure 91 mm[Hg] MD Stanley Emerson Work Phone: [facility] 07-03-2022 07:34-0500 Heart rate 87 /min MD Stanley Emerson Work Phone: [facility] 07-03-2022 07:34-0500 Respiratory rate 18 /min MD Stanley Emerson Work Phone: [facility] 07-03-2022 07:34-0500 SaO2% (BldA) [Mass fraction] 94 % MD Stanley Emerson Work Phone: [facility] 07-03-2022 07:34-0500 Systolic blood pressure 159 mm[Hg] MD Stanley Emerson Work Phone: [facility] 07-03-2022 05:46-0500 Body weight 94 kg MD Stanley Emerson Work Phone: [facility] 07-02-2022 16:27-0500 Inhaled oxygen flow rate 6 L/min MD Stanley Emerson Work Phone: [facility] 07-02-2022 10:06-0500 Body height 185.42 cm MD Stanley Emerson Work Phone: [facility] 07-02-2022 10:06-0500 Body mass index (BMI) [Ratio] 27.3 kg/m2 MD Stanley Emerson Work Phone: [facility] 06-19-2022 10:00-0500 Body height 187.96 cm Margarito Valentine Other [employer] Other 06-19-2022 10:00-0500 Body mass index (BMI) [Ratio] 26.32 kg/m2 Margarito Valentine Other [employer] Other 06-19-2022 10:00-0500 Body temperature 97.8 [degF] Margarito Valentine Other [employer] Other 06-19-2022 10:00-0500 Body weight 92.99 kg Margarito Valentine Other [employer] Other 06-19-2022 10:00-0500 Diastolic blood pressure 68 mm[Hg] Margarito Valentine Other [employer] Other 06-19-2022 10:00-0500 SaO2% (BldA) [Mass fraction] 95 % Margarito Valentine Other [employer] Other 06-19-2022 10:00-0500 Systolic blood pressure 108 mm[Hg] Margarito Valentine Other [employer] Other 06-12-2022 13:07-0500 Body height 187.96 cm MD Stanley Emerson Work Phone: [facility] 06-12-2022 13:07-0500 Body weight 93.44 kg MD Stanley Emerson Work Phone: [facility] 06-06-2022 12:00-0500 Body height 187.96 cm Margarito Valentine Other [employer] Other 06-06-2022 12:00-0500 Body mass index (BMI) [Ratio] 26.32 kg/m2 Margarito Topetesarina Other [employer] Other 06-06-2022 12:00-0500 Body temperature 97.2 [degF] Margarito Topetesarina Other [employer] Other 06-06-2022 12:00-0500 Body weight 92.99 kg Margarito Topetesarina Other [employer] Other 06-06-2022 12:00-0500 Diastolic blood pressure 70 mm[Hg] Margarito Serge Other [employer] Other 06-06-2022 12:00-0500 SaO2% (BldA) [Mass fraction] 98 % Margarito Topetesarina Other [employer] Other 06-06-2022 12:00-0500 Systolic blood pressure 108 mm[Hg] Margarito Topetesarina Other [employer] Other 06-04-2022 12:00-0500 Body height 187.96 cm Celia [email or web address] Other [employer] Other 06-04-2022 12:00-0500 Body mass index (BMI) [Ratio] 26.42 kg/m2 Celia [employer] Other [employer] Other 06-04-2022 12:00-0500 Body temperature 96.6 [degF] Celia Tapshot, [employer] Other [employer] Other 06-04-2022 12:00-0500 Body weight 93.35 kg Jonhcelestino Tapshot, [employer] Other [employer] Other 06-04-2022 12:00-0500 Diastolic blood pressure 70 mm[Hg] Celia Ramos Other [employer] Other 06-04-2022 12:00-0500 Respiratory rate 20 /min Celia Ramos Other [employer] Other 06-04-2022 12:00-0500 SaO2% (BldA) [Mass fraction] 98 % Celia Ramos Other [employer] Other 06-04-2022 12:00-0500 Systolic blood pressure 100 mm[Hg] Celia Ramos Other [employer] Other 06-03-2022 15:38-0500 Body height 187.96 cm Stanley Emerson Work Phone: [facility] [employer] 250 DO Work Phone: 06-03-2022 15:38-0500 Body mass index (BMI) [Ratio] 26.45 kg/m2 Stanley Emerson Work Phone: [facility] [employer] 250 DO Work Phone: 06-03-2022 15:38-0500 Body surface area Derived from formula 2.2 m2 Stanley Emerson Work Phone: [facility] 250 DO Work Phone: 06-03-2022 15:38-0500 Body weight 93.44 kg Stanley Emerson Work Phone: [facility] 250 DO Work Phone: 06-03-2022 15:38-0500 Diastolic blood pressure 78 mm[Hg] Stanley Emerson Work Phone: [facility] 250 DO Work Phone: 06-03-2022 15:38-0500 Heart rate 71 /min Stanley Emerson Work Phone: [facility] 250 DO Work Phone: 06-03-2022 15:38-0500 Systolic blood pressure 106 mm[Hg] Stanley Emerson Work Phone: [facility] 250 DO Work Phone: 05-22-2022 11:53-0500 Body temperature 98.8 [degF] MD Stanley Emerson Work Phone: [facility] 05-22-2022 11:53-0500 Diastolic blood pressure 72 mm[Hg] MD Stanley Emerson Work Phone: [facility] 05-22-2022 11:53-0500 Heart rate 78 /min MD Stanley Emerson Work Phone: [facility] 05-22-2022 11:53-0500 Respiratory rate 16 /min MD Stanley Emerson Work Phone: [facility] 05-22-2022 11:53-0500 SaO2% (BldA) [Mass fraction] 97 % MD Stanley Emerson Work Phone: [facility] 05-22-2022 11:53-0500 Systolic blood pressure 108 mm[Hg] MD Stanley Emerson Work Phone: [facility] 05-22-2022 06:02-0500 Body weight 88.8 kg MD Stanley Emerson Work Phone: [facility] 05-21-2022 11:48-0500 63 1 Stanley Emerson Work Phone: [facility] 250 DO Work Phone: Comment on above: [id number] 05-17-2022 12:08-0500 Body height 187.96 cm MD Stanley Emerson Work Phone: [facility] Encounters Encounter Date Encounter Type Care Provider Facility Start: 07-01-2023 End: 07-02-2023 ambulatory Katiadesi SAMUELS Facility:[facility] Start: 06-30-2023 End: 07-01-2023 ambulatory Katia SAMUELS Facility:[facility] Start: 06-30-2023 End: 06-30-2023 Patient encounter procedure Katia SAMUELS [facility] Start: 06-16-2023 End: 06-17-2023 ambulatory Katiadesi SAMUELS Facility:[facility] Start: 06-16-2023 End: 06-16-2023 Patient encounter procedure Katia SAMUELS [facility] Start: 06-10-2023 End: 06-11-2023 ambulatory Katia SAMUELS Facility:[facility] Start: 06-10-2023 End: 06-10-2023 Patient encounter procedure Katia SAMUELS [facility] Start: 05-28-2023 End: 05-28-2023 ambulatory STANLEY EMERSON Not Available Start: 05-12-2023 End: 05-12-2023 ambulatory STANLEY EMERSON Not Available Start: 05-06-2023 End: 05-06-2023 ambulatory Azcelestino Bakhous Other [employer] Other Start: 05-06-2023 Telephone encounter Aziz Bakhous [facility] Start: 04-16-2023 End: 04-16-2023 ambulatory Aziz Bakhous Other [employer] Other Start: 04-16-2023 Telephone encounter Aziz Bakhous [facility] Start: 04-15-2023 End: 04-15-2023 ambulatory Celia Ramos Other [facility] [employer] Other Start: 04-15-2023 Office outpatient vi sit 25 minutes Celia Ramos [facility] Start: 04-08-2023 End: 04-08-2023 ambulatory Teo Stokes Facility:[facility] Start: 04-08-2023 End: 04-08-2023 ambulatory MD Stanley Emerson Work Phone: [facility] Work Phone: Start: 04-08-2023 End: 04-08-2023 Patient encounter procedure MD Stanley Emerson Work Phone: [facility]-Lab [facility] Start: 03-11-2023 End: 03-12-2023 ambulatory Katia SAMUELS Facility:[facility] Start: 03-11-2023 End: 03-11-2023 Lab Drop off Katia SAMUELS [facility] Start: 03-11-2023 End: 03-11-2023 Patient encounter procedure Katia SAMUELS [facility] Start: 01-22-2023 Office outpatient vi sit 25 minutes Stanley Emerson Work Phone: [place] [address] DO Work Phone: Start: 01-22-[address] Teo Stokes Facility: Start: 12-25-2022 End: 12-26-2022 ambulatory Katia SAMUELS Facility:[facility] Start: 12-25-2022 End: 12-25-2022 Patient encounter procedure Katia SAMUELS [facility] Start: 12-10-2022 End: 12-11-2022 ambulatory Katia SAMUELS Facility:[facility] Start: 12-10-2022 End: 12-10-2022 Lab Drop off Katia SAMUELS [facility] Start: 12-10-2022 End: 12-11-2022 ambulatory Katia Isabel ARLENE Facility:[facility] Start: 12-10-2022 End: 12-10-2022 Patient encounter procedure Katia Hall SAMUELS [facility] [place] Start: 10-04-2022 End: 10-05-2022 ambulatory Katia Hall ARLENE Facility:[facility] Start: 10-04-2022 End: 10-04-2022 Patient encounter procedure Katia SAMUELS [facility] Start: 09-18-2022 End: 09-19-2022 ambulatory Katia R SAMUELS Facility: [place] Start: 09-18-2022 End: 09-18-2022 Patient encounter procedure Katia SAMUELS [facility] [place] Start: 09-15-2022 End: 09-15-[address] STANLEY EMERSON . Facility:[facility] Start: 09-12-2022 End: 09-13-[address] STANLEY EMERSON . Facility:[facility] Start: 09-08-2022 Encounter for preprocedural laboratory examination CELIA RAMOS [facility] Start: 09-04-2022 End: 09-05-[address] STANLEY EMERSON . Facility:[facility] Start: 09-04-2022 Encounter for preprocedural cardiovascular examination DR KATIA SAMUELS . [facility] Start: 09-02-2022 End: 09-03-[address] STANLEY EMERSON . Facility:[facility] Start: 09-02-2022 End: 09-03-2022 Encounter for preprocedural laboratory examination DR STANLEY EMERSON . Facility:[facility] Start: 09-02-2022 End: 09-03-[address] STANLEY EMERSON . Facility:[facility] Start: 09-02-2022 End: 09-03-2022 Encounter for preprocedural cardiovascular examination DR STANLEY EMERSON . Facility:[facility] Start: 08-21-2022 End: 08-21-2022 ambulatory Carlene Kasper Other [employer] Other Start: 08-21-2022 Follow-up encounter Carlene Dickerson [facility] Start: 08-16-2022 End: 08-16-2022 ambulatory Stanley Emerson Facility:[facility] Start: 08-16-2022 End: 08-16-2022 ambulatory MD Stanley Emerson Work Phone: [facility] Work Phone: Start: 08-16-2022 End: 08-16-2022 Patient encounter procedure MD Stanley Emerson Work Phone: [facility]-CT Scan [facility] [place] Work Phone: Start: 07-31-2022 End: 08-01-2022 ambulatory Katia SAMUELS Facility:[facility] Start: 07-31-2022 End: 07-31-2022 Patient encounter procedure Katia SAMUELS [facility] [place] Start: 07-25-2022 End: 07-25-2022 ambulatory Margarito Valentine Other [employer] Other Start: 07-25-2022 Postop follow up vis it related to original px Margarito Valentine [facility] Vascular Surgery Start: 07-24-2022 End: 07-24-2022 ambulatory Stanley Emerson Facility:[facility] Start: 07-24-2022 End: 07-24-2022 ambulatory MD Stanley Emerson Work Phone: [facility] Work Phone: Start: 07-24-2022 End: 07-24-2022 Patient encounter procedure MD Stanley Emerson Work Phone: [facility]-MRI [facility] [place] Work Phone: Start: 07-02-2022 End: 07-03-2022 Evaluation and management of inpatient MD Stanley Emerson Work Phone: [facility]-4 [facility] Work Phone: Start: 06-21-2022 End: 06-21-2022 Patient encounter procedure MD Stanley Emerson Work Phone: [facility]-Pre-Surgical Testing Work Phone: Start: 06-19-2022 End: 06-19-2022 ambulatory Margarito Valentine Other [employer] Other Start: 06-19-2022 Office outpatient vi sit 25 minutes Margarito Valentnie [facility] Vascular Surgery Start: 06-12-2022 End: 06-12-2022 ambulatory MD Stanley Emerson Work Phone: [facility] Work Phone: Start: 06-12-2022 End: 06-12-2022 Patient encounter procedure MD Stanley Emerson Work Phone: [facility]-CT Scan [facility] [place] Work Phone: Start: 06-11-2022 End: 06-11-2022 Patient encounter procedure HEATHER SCHWAB [facility] Start: 06-06-2022 End: 06-06-2022 ambulatory Margarito Valentine Other [employer] Other Start: 06-06-2022 Office outpatient vi sit 25 minutes Margarito Valentine [facility] Vascular Surgery Start: 06-04-2022 End: 06-04-2022 ambulatory Celia Ramos Other [facility] [employer] Other Start: 06-04-2022 Office outpatient vi sit 25 minutes Celia Ramos [facility] Nephrology Tom Start: 06-03-2022 Office outpatient vi sit 25 minutes Stanley Emerson Work Phone: [facility] 250 DO Work Phone: Start: 06-03-[address] Stanley Emerson Facility: Start: 05-21-[address] Stanley Emerson Facility:[id number] Start: 05-20-[address] Stanley Emerson Facility:[id number] Start: 05-19-[address] Teo Stokes Facility:[id number] Start: 05-18-[address] Teo Stokes Facility:[id number] Start: 05-17-[address] Stanley Emerson Facility:[id number] Start: 05-17-2022 Bradyarrhythmia MD Stanley billingsley Work Phone: [facility] Start: 05-17-[address] Teo Stokes Facility:[id number] Start: 05-16-2022 End: 05-22-2022 Encounter for preprocedural cardiovascular examination MD Stanley Emerson Work Phone: [facility] Start: 05-16-2022 End: 05-22-2022 Evaluation and management of inpatient MD Stanley Emerson Work Phone: [facility]-4 [employer] Work Phone: Start: 05-16-2022 End: 05-16-[address] STANLEY EMERSON . Facility:[facility] Start: 05-15-2022 End: 05-16-[address] STANLEY EMERSON . Facility:[facility] Start: 01-04-2022 End: 01-04-[address] STANLEY EMERSON . Facility:[facility] Patient encounter status Stanley Emerson Work Phone: [facility] 250 DO Work Phone: End: 01-22-2023 Patient encounter status [facility] Work [facility]: Procedures Date Procedure [...] Teo Stokes, Status: Pen, Time: 11:50 AM [facility] 250 DO Work Phone: Start: 04-08-2023 Bacteria identified in Urine by Culture [facility] Start: 12-10-2022 FUV, Provider: Teo Stokes, Status: Pen, Time: 10:10 AM FUV, Provider: Teo Stokes, Status: Pen, Time: 10:10 AM [facility] 250 DO Work Phone: Start: 07-24-2022 MR Abdomen WO and W contrast IV [facility] Start: 07-24-2022 MRI of abdomen with contrast MR abdomen wo/w con [facility] Start: 07-03-2022 [facility] Start: 07-02-2022 Fluoroscopy of Aorta and Bilateral Lower Extremity Arteries using Low Osmolar Contrast Fluoroscopy of Aorta and Bilateral Lower Extremity Arteries using Low Osmolar Contrast [facility] Start: 07-02-2022 Restriction of Abdominal Aorta with Intraluminal Device, Percutaneous Approach Restriction of Abdominal Aorta with Intraluminal Device, Percutaneous Approach [facility] Start: 05-22-2022 [facility] Start: 05-20-2022 Evaluation procedure [facility] Start: 05-19-2022 [facility] Start: 05-17-2022 End: 05-17-2022 [facility] Start: 05-16-2022 Referral to supply chain procurement manager [facility] Start: 05-16-2022 Referral to vascular surgeon [facility] Start: 05-16-2022 Hospital admission [facility] Patient Education [facility] Work Phone: Patient referral [facility] Work Phone: [facility] Immunizations Immunization Date Immunization Notes Care Provider Markus russell 03-29-2022 Pfizer COVID-19 Vac Bivalent 30 MCG/0.3ML Intramuscular Suspension Stanley Emerson Work Phone: [facility] 03-16-2022 influenza virus vacc ine, unspecified formulation Katia SAMUELS [facility] 03-16-2022 influenza, seasonal, injectable Stanley Emerson Work Phone: [facility] 250 DO Work Phone: 03-06-2022 Fluzone High-Dose Quadrivalent 0.7 ML Intramuscular Suspension Prefilled Syringe Stanley Emerson Work Phone: [facility] 250 DO Work Phone: 03-06-2022 influenza virus vacc ine, unspecified formulation HEATHER SCHWAB [facility] 10-03-2021 Comirnaty 30 MCG/0.3 ML Intramuscular Suspension Stanley Emerson Work Phone: [facility] 250 DO Work Phone: 10-03-2021 COVID-19 mRNATaniya (Pfizer) MD Stanley Emerson Work Phone: [facility] 10-03-2021 SARS-CoV-2 mRNA (lwnrgfocjjg-klvh-fazzrk e) vaccine HEATHER SCHWAB [facility] 04-23-2021 pneumococcal polysaccharide vaccine, 23 valent Stanley Emerson Work Phone: [facility] 02-22-2021 influenza virus vacc ine, unspecified formulation Katia SAMUELS [facility] 02-22-2021 influenza, injectabl e, quadrivalent, preservative free Stanley Emerson Work Phone: [facility] 250 DO Work Phone: 02-21-2021 Pfizer-BioNTech COVI D-19 Vacc 30 MCG/0.3ML Intramuscular Suspension [employer] Work Phone: [facility] Comment on above: Result Comment: 2022: [id number] 07-28-2020 Pfizer-BioNTech COVI D-19 Vacc 30 MCG/0.3ML Intramuscular Suspension [employer] Work Phone: [facility] 07-07-2020 Pfizer-BioNTech COVI D-19 Vacc 30 MCG/0.3ML Intramuscular Suspension [employer] Work Phone: [facility] 02-22-2020 influenza virus vacc ine, unspecified formulation HEATHER SCHWAB [facility] 02-22-2020 Seasonal, quadrivale nt, recombinant, injectable influenza vaccine, preservative free [employer] Work Phone: [facility] 250 DO Work Phone: Payers Date Payer Category Payer Self-pay 2017 Medicare [id number] 1959 Medicare [id number] 1959 Private Health Insurance [id number] 1943 Unknown [id number] 2.16.840.1.699372.3.579.2.593 1943 Unknown [id number] 2.16.840.1.732111.3.579.2.593 1943 Unknown [id number] 2.16.840.1.014179.3.579.2.593 1943 Unknown [id number] 2.16.840.1.265465.3.579.2.593 1943 Unknown [id number] 2.16.840.1.043130.3.579.2.593 1943 Unknown [id number] 2.16.840.1.466453.3.579.2.593 1943 Unknown [id number] 2.16.840.1.152649.3.579.2.593 1943 Unknown [id number] 2.840.1.357361.3.579.2.593 1943 Unknown [id number] 2.840.1.046278.3.579.2.356 1943 Unknown [id number] 2.840.1.200231.3.579.2.356 1943 Unknown [id number] 2.840.1.284510.3.579.2.356 1943 Unknown [id number] 2.840.1.133594.3.579.2.356 1943 Unknown [id number] 2.840.1.715812.3.579.2.356 1943 Unknown [id number] 2.840.1.228968.3.579.2.356 1943 Unknown [id number] 2.840.1.448311.3.579.2.356 1943 Unknown [id number] 2.840.1.017412.3.579.2.356 1943 Unknown [id number] 2.840.1.282964.3.579.2.125 9 1943 Unknown [id number] 2.840.1.780359.3.579.2.125 9 1943 Unknown [id number] 2.16.840.1.860976.3.579.2.727 1943 Unknown [id number] 2.16.840.1.836866.3.579.2.727 1943 Unknown [id number] 2.16.840.1.751916.3.579.2.727 1943 Unknown [id number] 2.16.840.1.873887.3.579.2.72 1943 Unknown [id number] 2.16.840.1.903627.3.579.2.72 1943 Unknown [id number] 2.16.840.1.140176.3.579.2.72 1943 Unknown [id number] 2.16840.1.717685.3.579.2.72 1943 Unknown [id number] 2.16.840.1.582700.3.579.2.727 1943 Unknown [id number] 2.16.840.1.963428.3.579.2.72 1943 Unknown [id number] 2.16.840.1.855594.3.579.2.727 1943 Unknown [id number] 2.16.840.1.566351.3.579.2.72 1943 Unknown [id number] 2.16.840.1.741610.3.579.2.727 1943 Unknown [id number] 2.16.840.1.655031.3.579.2.727 Medicare Medicare Nonpatient [id number] Unknown Unknown [facility] [id number] Unknown [id number] 2.16840.1.926332.3.579.2.531 Unknown [id number] 2.16.840.1.132037.3.579.2.531 Unknown [id number] 2.16.840.1.864597.3.579.2.531 Social History Date Type Detail Facility Daily caffeine consumption Daily caffeine consumption -[facility] 250 DO Work Phone: Comment on above: 3-4 cups coffee kellen y; 05/17/23 quit; 1/2 dozen cigarettes ; Start: 06-11-2022 End: 03-11-2023 Tobacco smoking status Heavy tobacco smoker (finding) [facility] [place] Sex Assigned At Male [facility] Start: 05-17-2022 [facility] Start: 1945 Sex Assigned At Male [facility] Start: 07-02-2022 End: 07-02-2022 Tobacco smoking status NHIS Ex-smoker (finding) [facility] Tobacco smoking status Never [facility] Medical Equipment Procedure Code Equipment Code Equipment Origin al Text Equipment Identifier Dates Percutaneous endovascular repair of abdominal aortic aneurysm (AAA) Abdominal aorta endovascular stent-graft ()[id number] FDA Start: 07-02-2022 Percutaneous endovascular repair of abdominal aortic aneurysm (AAA) Abdominal aorta endovascular stent-graft ()[id number] FDA Start: 07-02-2022 Percutaneous endovascular repair of abdominal aortic aneurysm (AAA) Abdominal aorta endovascular stent-graft ()[id number] FDA Start: 07-02-2022 Percutaneous endovascular repair of abdominal aortic aneurysm (AAA) Soft-tissue/mesh anchor, non-bioabsorbable ()[id number] FDA Start: 07-02-2022 Goals Date Patient Goal Desired Activity /State Functional Status Date Assessment Result Facility 06-30-2023 Functional Status N/A [facility] [place] 06-10-2023 Functional Status N/A [facility] 03-11-2023 Functional Status N/A [facility] 12-10-2022 Functional Status N/A [facility] 09-18-2022 Functional Status N/A [facility] 07-31-2022 Functional Status N/A [facility] 07-03-2022 Functional status Patient at Baseline [facility] Work Phone: 06-11-2022 Functional Status N/A [facility] 05-16-2022 Functional status Patient Not at Baseline [facility] Work Phone: Mental Status Date Assessment Result Facility 07-03-2022 Cognitive function Cognitive Sta tus Patient at Baseline [facility] Work Phone: 05-16-2022 Cognitive function Cognitive Sta tus Patient at Baseline [facility] Work Phone: Clinical Notes 06-04-2022 [...] Follow these instructions at home: Medicines Take xuxw-gio-xnreenn and prescription medicines only as told by [...] provider. Document Revised: 01/31/2021 Document Reviewed: 01/31/2021 [employer] Patient Education 2022 Dibsie. Follow Up Care 05/06/2023 11:11:29 With:ARLENE CASILLAS, Katia Hall, URL Address: [facility] [address] , [place] [id number] When: Unknown Comments:1 day for catheter removal [facility] 06-10-2023 Note [id number] [facility] 06-10-2023 Hospital Discharg e instructions Patient [...] cotton underwear to absorb moisture and keep grain drier. 6. Keep the drainage bag below the [...] Address: [facility] [address] [place] [address]- Business (1) When:06/24/2023 15:15:55 Comments:for zapien removal [facility] 06-10-2023 Note Custom Rezum Post-Procedure Instructions General [...] using a circul (more content not included)... [facility] 05-06-2023 Evaluation note Encounter Date Diagnosis Assessment Notes Apr, Primary hypertension (ICD-10 - I10) [facility] Other 11-21-2023 Evaluation note* Encounter Date Diagnosis [...] supplement. I asked the patient to continue ycvu-cel-ueuxjyw iron supplement once or twice daily Mar, Primary hypertension (ICD-10 - I10) BP is elevated. Will start Norvasc 5 mg PO daily. i asked the patient to monitor Bp closely with tapering steroid dose [facility] 10-17-2023 Hospital Discharge instructions Patient Education [...] including vitamins, herbs, eye drops, creams, and bntd-pkd-jojulxn medicines. Any problems you or family members [...] provider tells you to take them. Taking bcrv-pbw-ekqndnr medicines, vitamins, herbs, and supplements. Surgery safety [...] provider. Document Revised: 02/05/2022 Document Reviewed: 02/05/2022 [employer] Patient Education 2022 Dibsie. 03/11/2023 14:15:06 Benign Prostatic Hyperplasia Benign Prostatic [...] urethra. Follow these instructions at home: Take puvp-sju-yvpjmee and prescription medicines only as told by [...] provider. Document Revised: 11/28/2021 Document Reviewed: 11/28/2021 [employer] Patient Education 2022 Dibsie. Follow Up Care 02/07/2023 16:01:50 With:ARLENE CASILLAS, Katia Hall, URL Address: [facility] [address], [place] [address]- When:Within 3 Month(s) Comments:Sched cysto/FISH/Cytol/BT check [facility] 10-17-2023 Evaluation + Plan note Diagnostic Tests Pending * UroVysion Fish and Urine Cyto ([facility]) 03/11/23 [facility]08-15-2023 Note [id number]:127[facility] 12-10-2022 Evaluation + Plan note Diagnostic Tests Pending * UroVysion Fish and Urine Cyto ([facility]) 12/10/22 [facility]07-18-2023 Hospital Discharge instructions Patient Education 12/10/2022 08:17:13 [...] if anything looks unusual. Men with a ezoizr-tqcd-xrlupz risk for skin cancer may want to see a document improvement specialist (digital content coordinator) for an annual body check. What are the benefits of screening? Cancer screening is done to look for cancer in the very early stages, before it spreads and becomesharder to treat and before you would start to notice symptoms. Finding cancer early improves the chances of successful treatment. It may save your life. Where to find more information [place] [employer]: www.cancer.org Centers for Disease Control and Prevention: www.cdc.gov National Cancer [place]: www.cancer.gov Contact a health care provider if: [...] Document Reviewed: 04/07/2020 Elsevier Patient Education 2022 Dibsie. Follow Up Care 11/15/2022 14:27:10 With:ARLENE CASILLAS, Katia Hall, URL Address: [facility] [address] , [place] [address]- When: Unknown [facility] Dominic 04-26-2023 Hospital Discharge instructions Patient [...] cells. Follow these instructions at home: Take oiao-vmj-pzowzzv and prescription medicines only as told by [...] is important. Where to find more information [place] [employer] (ACS): cancer.org National Cancer [place] (NCI): cancer.gov Contact a health care provider [...] provider. Document Revised: 04/22/2022 Document Reviewed: 04/22/2022 [employer] Patient Education 2022 Dibsie. Follow Up Care 08/26/2022 14:12:46 With:ARLENE CASILLAS, Katia Hall, URL Address: [facility] [address], [place] [address]- When: Unknown [facility] 04-10-2023 NoteEXAM: XR CHEST 2 V HISTORY: Pre-surgery evaluation COMPARISON: None. TECHNIQUE: PA and lateral views of the chest. FINDINGS: The cardiomediastinal silhouette is normal. No focal consolidation is identified. There is no pneumothorax. No pleural effusion is noted. The osseous structures are intact. IMPRESSION: No acute cardiopulmonary process. Electronically authenticated by: CORKY FORD Date: 2022-09-02 14:17[facility]03-29-2023 Evaluation note* Encounter Date Diagnosis Assessment [...] have his bladder tumor removal as scheduled. [facility] 03-08-2023 Evaluation + Plan note Diagnostic Tests Pending * UroVysion Fish and Urine Cyto ([facility]) 07/31/22 [facility] 03-08-2023 Hospital Discharge instructions Patient Education 07/31/2022 [...] including vitamins, herbs, eye drops, creams, and dduq-pso-wambfxd medicines. Any problems you or family members [...] provider tells you to take them. Taking tjvf-rwj-izmvbng medicines, vitamins, herbs, and supplements. Tests You [...] 03/08/2010 Document Revised: 12/11/2018 Document Reviewed: 12/11/2018 [employer] Patient Education 2020 Dibsie. Follow Up Care 07/25/2022 10:56:51 With:ARLENE CASILLAS, Katia Hall, URL Address: [facility] [address] , [place] [address]- When: Unknown [facility] 03-02-2023 Evaluation note* Encounter Date Diagnosis Assessment [...] some bladder issues. I did call the [employer]. The device is compatible up to 3 Maggi for MRI. I explained this to the family and the patient. Jul, Other specified postprocedural states (ICD-10 - Z98.890) Jul, Personal history of other diseases of the circulatory system (ICD-10 - Z86.79) [facility]-25-2023 Evaluation note* Encounter Date Diagnosis Assessment Notes [...] plan to do this percutaneously under MAC. [facility] Other 01-17-2023 Hospital Discharge instructions Patient Education [...] including vitamins, herbs, eye drops, creams, and bytm-zdn-mngkdmy medicines. Any problems you or family members [...] provider tells you to take them. ?Taking zokt-cwa-dkgdpyy medicines, vitamins, herbs, and supplements. Follow instructions [...] Follow these instructions at home: Medicines Take uyar-mdc-tgnhdxg and prescription medicines only as told by [...] 05/09/2001 Document Revised: 05/04/2019 Document Reviewed: 05/04/2019 [employer] Patient Education 2020 [employer] Follow Up Care 05/22/2022 13:37:28 With:[facility] [place] Address: [address] 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 [facility] 01-10-2023 Evaluation note* Encounter Date Diagnosis [...] (ICD-10 - E78.5) Patient is on statin [facility] Other Evaluation + Plan note No data available for this section [facility] evaluation + Plan note Future Appointments Appointment Date:10/04/2022 10:00:00 AM Scheduled Provider: Location:[facility] Appointment Type:URO Nurse Visit [facility] Evaluation + Plan note Future Appointments Appointment Date:06/16/2023 10:00:00 AM Scheduled Provider: Location[facility] Appointment Type:URO Nurse Visit Appointment Date:06/30/2023 01:30:00 PM Scheduled Provider:[facility] SAMUELS [facility] Office Visit Diagnostic Tests Pending * UroVysion Fish and Urine Cyto ([facility]) [facility]ments Appointment Date:06/30/2023 01:30:00 PM Scheduled Provider:Katia SAMUELS MD Location:[facility] Appointment Type:URO Office Visit [facility] evaluation + Plan note Future Appointments Appointment Date:07/01/2023 08:30:00 AM Scheduled Provider: Location:[facility] Appointment Type:URO Nurse Visit [facility] evaluation note* Diagnosis Onset Date Resolution [...] acute Vitamin B 12 deficiency acut e [facility] Work Phone: Evaluation noteNo assessment information available [facility] Work Phone: Evaluation noteNo InformationN[facility]Select [facility] [employer] Other [employer] general Narrative - Reported* Type Description Date [...] INJ URY, 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, 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 [facility] Other history general Narrative - Reported* Type [...] INJ URY, 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, 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 [facility] Other history general Narrative - Reported* Type [...] 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 Hospitalization History SEE ABOVE [facility] Other Hospital Discharge instructions No data available for this section [facility] [place] note No data available for this section [facility] [place] Summary Purpose Family History No [...] section and content) DATE CREATED AUTHOR 05/12/2021 [facility] dical Specialist DATE CREATED AUTHOR AUTHOR'S ORGANIZ ATION 09/23/2022 [facility] DATE CREATED AUTHOR AUTHOR'S ORGANIZ ATION 01/23/2023 [facility] DATE CREATED AUTHOR AUTHOR'S ORGANIZ ATION 01/23/2023 [employer] DATE CREATED AUTHOR AUTHOR'S ORGANIZ ATION 05/29/2023 [facility] dical Specialists EPIC DATE CREATED AUTHOR AUTHOR'S ORGANIZ ATION 07/05/2023 [facility] DATE CREATED AUTHOR AUTHOR'S ORGANIZ ATION 07/13/2023 [facility] Patient Care team informatio n (unrecognized [...] week f/u EVAR4 WK FOLLOW UP; [facility] 08/16/22RENAL 6 month Follow upBPREFILL Goals (unrecognized [...] BE BASED ON THE PRIMARY CLINICAL RECORDS. [facility] [employer] [facility]. provides no warranty or guarantee of the accuracy or completeness of information in this document.
--- NOTE | 2023-07-31 12:29 | ED.MALEGU1 ---
HPI - Male Genitourinary General Chief complaint: Urogenital-Male Stated complaint: THINKS THERE'S BLOCKAGE IN CATHETER Time Seen by Provider: 07/31/23 12:05 Source: patient and family Mode of arrival: walk-in Limitations: other Limitations comment: [facility] History of Present Illness HPI Narrative: This patient was here last night for Villarreal catheter change. He has had an indwelling Villarreal catheter for 14 months according to his history. He is currently under the care of our local urology group. He came in last night because of some swelling in his leg and the needed the catheter changed. They did do an outpatient venous Doppler study this morning that was not for DVT. Here in ER there was no blood clots in his Villarreal catheter. His son, who is a good historian, did not see any blood clots at home. The Villarreal catheter is draining slightly blood-tinged urine today.Was a easily exchanged and a number 16-gauge Villarreal catheter was replaced. There was no blood clots. Related Data Home Medications Medication Instructions Recorded Confirmed acetaminophen 500 mg capsule 500 mg PO Q6H PRN fever or pain 04/13/23 07/30/23 albuterol sulfate 90 mcg/actuation 1 inh inhalation Q6H PRN 04/13/23 07/30/23 aerosol inhaler bronchospasm aspirin 81 mg tablet,delayed 81 mg PO DAILY 04/13/23 07/30/23 release (Ecotrin Low Strength) folic acid 1 mg tablet 1 mg PO DAILY 04/13/23 07/30/23 metoprolol tartrate 50 mg tablet 50 mg PO Q12H 04/13/23 07/30/23 multivitamin (Daily Multi-Vitamin 1 tab PO DAILY 04/13/23 07/30/23 tablet) simvastatin 20 mg tablet 20 mg PO DAILY 04/13/23 07/30/23 amlodipine 5 mg tablet mg 07/30/23 Previous Rx's Medication Instructions Recorded ciprofloxacin HCl 500 mg tablet 500 mg PO Q12H 10 days #20 tabs 07/26/23 Allergies Allergy/AdvReac Type Severity Reaction Status Date / Time No Known Drug Allergies Allergy Verified 07/30/23 20:27 PFSH PFSH Social History Smoking status: Current every day smoker Exam Narrative Exam Narrative: Awake alert here with his son. No distress vital signs are stable. He is afebrile. The Villarreal catheter to been changed from I saw this patient. He has no swelling around the meatus. There is no blood clots. The rest of the genital area appears atraumatic and normal. Prior to changing his catheter the bladder scan showed retained urine of over 600 cc. Nursing staff was able to flush into the bladder but was not able to withdraw. At that time was decided to reswitch his catheter again. At that time we recovered nearly 1100 cc of urine. Constitutional Vital Signs, click to edit/add: Last Vital Signs Temp 98.7 F 07/31/23 11:54 Pulse 90 07/31/23 11:54 Resp 16 07/31/23 11:54 BP 138/89 07/31/23 11:54 Pulse Ox 97 07/31/23 11:54 O2 Del Method Room Air 07/31/23 11:54 Course Vital Signs Vital signs: Vital Signs Temperature 98.7 F 07/31/23 11:54 Pulse Rate 90 07/31/23 11:54 Respiratory Rate 16 07/31/23 11:54 Blood Pressure 138/89 07/31/23 11:54 Pulse Oximetry 97 07/31/23 11:54 Oxygen Delivery Method Room Air 07/31/23 11:54 Temperature 98.7 F 07/31/23 11:54 Pulse Rate 90 07/31/23 11:54 Respiratory Rate 16 07/31/23 11:54 Blood Pressure 138/89 07/31/23 11:54 Pulse Oximetry 97 07/31/23 11:54 Oxygen Delivery Method Room Air 07/31/23 11:54 MDM - Male Genitourinary MDM Narrative Medical decision making narrative: Patient's venous duplex study is negative so he does not need any ongoing anticoagulation therapy. He is to follow-up with his urologist for further direction in this chronic Villarreal catheter situation Discharge Plan Discharge Chief Complaint: Urogenital-Male Clinical Impression: Complication of Villarreal catheter Patient Disposition: Home, Self-Care Time of Disposition Decision: 12:32 Prescriptions / Home Meds: No Action albuterol sulfate 90 mcg/actuation HFA aerosol inhaler 1 inh INHALATION Q6H PRN (Reason: bronchospasm) folic acid 1 mg tablet 1 mg PO DAILY metoprolol tartrate 50 mg tablet 50 mg PO Q12H simvastatin 20 mg tablet 20 mg PO DAILY Hold Instructions: while taking ATBs aspirin [Ecotrin Low Strength] 81 mg tablet,delayed release (DR/EC) 81 mg PO DAILY multivitamin [Daily Multi-Vitamin] Tablet 1 tab PO DAILY acetaminophen 500 mg capsule 500 mg PO Q6H PRN (Reason: fever or pain) ciprofloxacin HCl 500 mg tablet 500 mg PO Q12H 10 Days Qty: 20 0RF amlodipine 5 mg tablet Additional Instructions: Follow-up with Dr. Samuels. No further blood thinners are necessary at this time Referrals: NICHOLAS EMERSON [Primary Care Provider] - 1 week Stand Alone Forms: Portal Instructions
[2023-07-31] MEDS: WATER FOR IRRIGATION, STERILE 1,000 ML IRRIG.SOLN 1000 ML IRR (13:03)
== END 2023-07-31 13:06 | disposition home or self-care (01) ==
PROVIDERS: Emergency Provider Emergency Medicine Emergency Medical Services; PCP Family Medicine
DX: T83.9XXA Unspecified complication of genitourinary prosthetic device, implant and graft, initial encounter (principal); I82.401 Acute embolism and thrombosis of unspecified deep veins of right lower extremity; M79.89 Other specified soft tissue disorders; F17.210 Nicotine dependence, cigarettes, uncomplicated; Z79.899 Other long term (current) drug therapy; Z79.82 Long term (current) use of aspirin
CPT/HCPCS: 36415; 51702; 80048; 81001; 85025; 85378; 87086; 93971; 99284

== ENCOUNTER 2023-08-06 00:07 | Emergency (ER) | payer MEDICARE, OTHER, SELFPAY ==
[2023-08-06 00:14] VITALS: BP 147/99; PULSE 78; RESP 18; TEMP 36.7; O2SAT 97; BMI 29.5
--- NOTE | 2023-08-06 00:32 | ED.MALEGU1 ---
HPI - Male Genitourinary General Chief complaint: Urogenital-Male Stated complaint: catheter problem Time Seen by Provider: 08/06/23 00:27 Source: patient and family Mode of arrival: walk-in Limitations: no limitations History of Present Illness HPI Narrative: patient has past history of urinary retention and has indwelling zapien. Presents tonight states the catheter is not working. The bag was emptied yesterday around 4pm with little out put since. Developed abdominal pressure and now presents to the ER. No fever or nausea Related Data Home Medications Medication Instructions Recorded Confirmed acetaminophen 500 mg capsule 500 mg PO Q6H PRN fever or pain 04/13/23 07/30/23 albuterol sulfate 90 mcg/actuation 1 inh inhalation Q6H PRN 04/13/23 07/30/23 aerosol inhaler bronchospasm aspirin 81 mg tablet,delayed 81 mg PO DAILY 04/13/23 07/30/23 release (Ecotrin Low Strength) folic acid 1 mg tablet 1 mg PO DAILY 04/13/23 07/30/23 metoprolol tartrate 50 mg tablet 50 mg PO Q12H 04/13/23 07/30/23 multivitamin (Daily Multi-Vitamin 1 tab PO DAILY 04/13/23 07/30/23 tablet) simvastatin 20 mg tablet 20 mg PO DAILY 04/13/23 07/30/23 amlodipine 5 mg tablet mg 07/30/23 Previous Rx's Medication Instructions Recorded ciprofloxacin HCl 500 mg tablet 500 mg PO Q12H 10 days #20 tabs 07/26/23 Allergies Allergy/AdvReac Type Severity Reaction Status Date / Time No Known Drug Allergies Allergy Verified 08/06/23 00:17 Review of Systems ROS Status of ROS 10 or more systems reviewed and unremarkable except as noted in history and below PFSH PFS Social History Smoking status: Current every day smoker Exam Constitutional Vital Signs, click to edit/add: Last Vital Signs Temp 98.1 F 08/06/23 00:14 Pulse 78 08/06/23 00:14 Resp 18 08/06/23 00:14 BP 147/99 H 08/06/23 00:14 Pulse Ox 97 08/06/23 00:14 O2 Del Method Room Air 08/06/23 00:14 Common normals: no apparent distress, average body habitus, oriented x3, no limitations, healthy appearing, alert and well nourished [facility] Common normals: normocephalic and head/scalp atraumatic Eye Common normals: EOMs intact bilaterally and conjunctivae normal Respiratory Common normals: normal respiratory effort, no retractions, no use of accessory muscles and clear to auscultation bilaterally Cardio Common normals: regular rate, regular rhythm, S1 normal heart sound and S2 normal heart sound GI Other: suprapubic tenderness Extremity Common normals: normal to inspection and full ROM Neuro Common normals: oriented x3, CN's II-XII intact bilaterally, moves all extremities and no focal motor deficits Psych Appearance: grossly normal Course Vital Signs Vital signs: Vital Signs Temperature 98.1 F 08/06/23 00:14 Pulse Rate 78 08/06/23 00:14 Respiratory Rate 18 08/06/23 00:14 Blood Pressure 147/99 H 08/06/23 00:14 Pulse Oximetry 97 08/06/23 00:14 Oxygen Delivery Method Room Air 08/06/23 00:14 Temperature 98.1 F 08/06/23 00:14 Pulse Rate 78 08/06/23 00:14 Respiratory Rate 18 08/06/23 00:14 Blood Pressure 147/99 H 08/06/23 00:14 Pulse Oximetry 97 08/06/23 00:14 Oxygen Delivery Method Room Air 08/06/23 00:14 MDM - Male Genitourinary MDM Narrative Medical decision making narrative: patient presents with non functioning zapien. Catheter changed by nursing. Patient is now feeling better and discharged home UA with pyuria as expected with indwelling zapien. cx sent Lab Data Labs: Lab Results 08/06/23 Range/Units 01:00 Urine Color Lt. yellow (YELLOW) Urine Clarity Clear (CLEAR) Urine pH 6.0 (5.0-9.0) Ur Specific [place] <=1.005 A (1.005-1.025) Urine Protein Trace (NEG/TRACE) mg/dL Urine Glucose (UA) Negative (NEGATIVE) mg/dL Urine Ketones Negative (NEGATIVE) mg/dL Urine Occult Blood Large A (NEGATIVE) Urine Nitrite Negative (NEGATIVE) Urine Bilirubin Negative (NEGATIVE) Urine Urobilinogen 0.2 (0.2-1.0) EU/dL Ur Leukocyte Esterase Moderate A (NEGATIVE) Urine RBC 2-5 A (0-2) #/HPF Urine WBC 10-20 A (NONE SEEN) #/HPF Ur Squamous Epith Cells Rare (NONE/RARE) #/LPF Urine Crystals None seen (None Seen) #/HPF Urine Bacteria Trace A (NONE SEEN) #/HPF Urine Casts None seen (NONE SEEN) #/LPF Urine Mucus None seen (NONE SEEN) Discharge Plan Discharge Stand Alone Forms: Portal Instructions Chief Complaint: Urogenital-Male Clinical Impression: Complication of Zapien catheter Patient Disposition: Home, Self-Care Prescriptions / Home Meds: No Action albuterol sulfate 90 mcg/actuation HFA aerosol inhaler 1 inh INHALATION Q6H PRN (Reason: bronchospasm) folic acid 1 mg tablet 1 mg PO DAILY metoprolol tartrate 50 mg tablet 50 mg PO Q12H simvastatin 20 mg tablet 20 mg PO DAILY Hold Instructions: while taking ATBs aspirin [Ecotrin Low Strength] 81 mg tablet,delayed release (DR/EC) 81 mg PO DAILY multivitamin [Daily Multi-Vitamin] Tablet 1 tab PO DAILY acetaminophen 500 mg capsule 500 mg PO Q6H PRN (Reason: fever or pain) ciprofloxacin HCl 500 mg tablet 500 mg PO Q12H 10 Days Qty: 20 0RF amlodipine 5 mg tablet Instructions: Urinary Retention in Men (ED) Additional Instructions: follow up with your urologist Referrals: NICHOLAS EMERSON [Primary Care Provider] - 1 week Discharge Date/Time: 08/06/23 01:47
--- OUTSIDE RECORDS SUMMARY | 2023-08-06 00:42 | XMS_ITS | CCD ---
Author Name Unknown Address [address] [place] [address] Organization [facility] Care Team Providers Care Log Clerk Name Role Phone Stanley Emerson Unavailable Unavailable Unavailable STANLEY EMERSON Primary Care Physician Unavail able MD Stanley Emerson Primary Care Provider MD Taz Barnes Admit Provider MD Margarito Valentine Other Provider MD Janice Gonzalez Other Provider DO Bernabe Cr Attending Provider MD Margarito Valentine Attending Provider MD Margarito Valentine Admit Provider [phone] FrancesJonh owusujessie Unavailable Margarito Valentine Unavailable MOMO Omalley Attending Provider MD Stanley Emerson Primary Care Provider [phone] MD Taz Barnes Admit Provider MD Margarito Valentine Other Provider [phone] MD Janice Gonzalez Other Provider DO Bernabe Cr Attending Provider MD Margarito Valentine Attending Provider MD Margarito Valentine Admit Provider [phone] MOMO Omalley Attending Provider TitiSean jarquinie Unavailable HEMEYER ., DR PETERSON Primary Care Unavailable JACOBS ., DR MONTALVO Admitting Unavailable JACOBS ., DR MONTALVO Attending Unavailable JACOBS ., DR MONTALVO Consulting Unavailable Corky Ford Consulting Unavailable HEMEYER ., DR PETERSON Primary Care Unavailable JACOBS ., DR MONTALVO Admitting Unavailable JACOBS ., DR MONTALVO Attending Unavailable JACOBS ., DR MONTALVO Consulting Unavailable LOANJAZZY Jarquin Consulting Unavailable SURY II, ARCADIO Consulting Unavailable [...] Elliot Emerson, Dr. Stanley Mercado Primary Care Araceliva lucille Stokes, Dr. Teo Poon Attending Araceli romy Stokes, Dr. Teo Poon Attending Araceli romy Emerson, Dr. Stanley Mercado Primary Care MD Stanley Little Primary Care Provider MD Celia Griffin Attending Provider [phone] MD Teo Stokes Referring Provider Teo Stokes Referring Unavailable Celia Griffin Admitting Unavailable Celia Griffin Attending Unavailable Stanley Emerson Primary Care Unavailable Stanley Emerson Primary Care Unavailable ShahramHeather kimble Admitting Unavailable ShahramHeather kimble Attending Unavailable Idania, Stanley Rich Primary Care Unavailable Langenberg, Margarito Curtis Admitting Unavailabl e Langenberg, Margarito Curtis Attending Unavailabl e JACOBS, Katia Hall Attending Unavailable JACOBS, Katia R Attending Unavailable JACOBS, Katia R Admitting Unavailable JACOBS, Katia R Attending Unavailable JACOBS, Katia R Referring Unavailable JACOBS, Katia R Referring Unavailable JACOBS, Katia R Admitting Unavailable JACOBS, Katia R Attending Unavailable JACOBS, Katia R Admitting Unavailable JACOBS, Katia R Attending Unavailable JACOBS, Katia R Admitting Unavailable JACOBS, Katia R Attending Unavailable JACOBS, Katia R Attending Unavailable JACOBS, Katia R Attending Unavailable JACOBS, Katia R Attending Unavailable JACOBS, Katia R Attending Unavailable JACOBS, Katia R Attending Unavailable JACOBS, Katia R Attending Unavailable HEMEYER, STANLEY Rich Attending Unavailable HEMEYER, STANLEY Rich Attending Unavailable HEMECHERY, STANLEY Rich Attending Unavailable JACOBS, KATIA R Referring Unavailable Allergies Allergy Classification Reported Allergen(s) Allergy Type Date of Onset Reaction(s) Facility (1 source) No Known Medication Allergies; Translations: [No Known Medication Allergies] Propensity to adverse reactions (disorder) [facility] Repository Medications Current Medications Medication Drug [...] take 1 tablet by mouth every hour Waurika 325 mg-7.5 mg oral tablet 1 tab(s), Oral, Once, 1 tab(s), Refill(s) 0, Take 1 hour prior to procedure, [facility]/pharmacy #[id number], 187, cm, 03/11/23 13:44:00 EDT, [...] Daily, # 14 tab(s), Refills(s) 0, Pharmacy: [facility]/pharmacy #[id number], 187, cm, 06/10/23 13:43:00 EST, [...] Drug Class(es) Dates Sig (Normalized) Sig (Original) [id number] 200 actuat albuterol 0.09 mg/actuat metered dose [...] procedure, # 6 tab(s), Refills(s) 0, Pharmacy: [facility]/pharmacy #[id number], 187, cm, 09/18/22 14:39:00 EDT, Height/Length Dosing, 93, kg, 09/18/22 14:39:00 EDT, Weight Dosing Start Date: 12/03/22 Status: Ordered Start: 07-25-2022 take 1 tablet by charlene once daily Cipro 250 mg Tab 250 mg = 1 tab(s), Oral, Daily, Take 1 tablet the day before the procedure and 1 tablet after the procedure, # 2 tab(s), Refills(s) 0, Pharmacy: [facility]/pharmacy #[id number], 187, cm, 06/11/22 9:11:00 EST, [...] indwelling urethral catheter, initial encounter; Translations: [facility]] Onset: 09-16-2022 [...] 05-22-2022 Episodic Other aftercare (1 source) Other 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; Translations: [[facility] CURRENT DRUG THERAPY] Onset: 09-23-2022 Episodic Other aftercare (1 source) 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; Translations: [[facility] CURRNT USE ANTICOAGULANTS] Onset: 09-08-2022 Episodic Other [...] Onset: 05-23-2022 Episodic Other aftercare (1 source) [facility] (current) use of aspirin; 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 he will be due in November 2023.[facility] Physician Orderon 07-04-2023 Physician Order [id number] [facility] Patient Educationon 06-30-19 Patient Education Urology [...] these instructions at home: Medicines ? Take nybt-pkt-ktmylve and prescription medicines only as told by [...] provider. Document Revised: 01/31/2021 Document Reviewed: 01/31/2021 [employer] Patient Education ? 2022 [employer]. [facility] Urology Office/Clinic Noteon 06-30-2023 Urology Office/Clinic Note Chief Complaint f/u to Diann HPI Staff F/u to Diann done 06/10/23. Dx: hx of bladder cancer, [...] and history for this patient from Dr. Jacobs. I have reviewed and verified the staff [...] Urinary retention (R33.9: Retention of urine, unspecified) [facility] ER on 09/15/22 due to catheter clogged. [...] has catheter. Follow-up With When Contact Information Katia JACOBS MD, URL [facility] [address], [place] [address] [phone] Additional Instructions: 1 day for catheter removal Patient Education Acute Urinary Retention, Male I, Apple Escoto, personally scribed for Dr. Jacobs on 06/30/2023 14:30:01. . Documentation recorded by the scribe, Apple Escoto, accurately reflects the services(s) I performed and decisions made by me. Authenticated by Dr. Jacobs on 06/30/2023 14:32:21. Problem List/Past Medical History [...] Use:. Cigarettes, (more content not included)... Normal [facility] Comment on above: Result Comment: Elec tronically Signed By: Katia JACOBS MD\.br\Date and Time Signed: 06/30/23 14:32 EST\.br\Electronically Co-Signed By: Apple Escoto\.br\Date and Time Co-Signed: 06/30/23 14:30 EST [facility] Fish and Urine Cyt o ([facility])on 06-26-2023 [facility] Revision Information Invalid Interpretation Code [facility] Comment on above: Result Comment: Brayan ection Reason -[ Fredi Stephen, 06/26/23 - 10:32 ] Corrected report issued to update PMS/PWS. The diagnosis remains unchanged. Correction Notes - Performed By: #### 1 [id number] #### [facility] Laboratory [address] [place] [address] Ambulatory Visit Summaryon 0 06-16-2023 Ambulatory Visit Summary ALEX ANDERSON :1945 Visit Date:06/16/2023 Ambulatory Visit Instructions Your Diagnosis BPH with urinary obstruction Your Care Team Attending Physician - ARLENE CASILLAS, Katia Hall Primary Care Physician - IDANIA CASILLAS, STANLEY Rich This Is Your Medications List acetaminophen-hydrocodone (Waurika 325 mg-7.5 mg oral tablet) albuterol (Albuterol (Eqv-ProAir HFA) 90 mcg/inh inhalation aerosol) amlodipine metoprolol (Metoprolol tartrate 50 mg Tab) multivitamin oxybutynin (oxybutynin 10 mg ER Tab) simvastatin (simvastatin 20 mg Tab) Procedures Performed Cystoscope (03/11/2023), TURBT - Transurethral resection of bladder tumor (09/12/2022), Cystoscopy (07/31/2022). What to do next Scheduled Follow-Up Appointments Friday 1:30 PM EST With: Katia JACOBS MD Where: [facility] Reminderson 06-12-2023 Reminders - From: Dana Rivas To: [facility] - Recalls Arlene; Sent: 09/18/2022 15:49:30 EDT Show up: 01/24/2023 15:49:00 EDT Subject: Cysto/FISH/cytol Due Date/Time: 02/10/2023 15:49:00 EDT Reminder/Recall Patient needs scheduled for 3 mo Cysto/FISH/cytol (bt ck) in Feb 2023 Patient sched for 03/11/23 in [place]. Pt will be due in May 2023.LG Patient had cysto/Rezum on 06/10/23. He will be due in August 2023.LG Normal [facility] Consent for Procedure/Surger yon 06-10-2023 Consent for Procedure/Surgery [id number]#[id number] Normal [facility] Consent for Treatmenton 05-26 Consent for Treatment [id number]#1.00TIFF Normal [facility] IntraOperative Documentson 0 06-10-2023 IntraOperative Documents [id number]#[id number] [facility] Main OR Intraoperative Recor don 06-10-2023 Main OR Intraoperative Record IntraOp Document Type FTURO Summary Primary Physician: Katia JACOBS MD Finalized Date/Time: 06/10/23 15:18:46 Pt. Name: ALEX ANDERSON/Sex: 1945 Male Med Rec #: [id number] Physician: Katia JACOBS MD Financial #: [id number] Pt. 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 Surgeon Description cysto, REZUM treatment x 12 Primary Procedure Yes Primary Surgeon Katia JACOBS MD Start 06/10/23 14:40:00 Stop 06/10/23 15:07:00 Anesthesia Type Local Surgical Service Urology Wound Class 2 - Clean-Contaminated Last Modified By: Clifford CHAN, KATEOR, Gayatri 06/10/23 15:07:15 General Comments: cath inserted 18fr [...] CANCER, BPH WITH OBSTRUCTION Last Modified By: Clifford CHAN, KATEOR, Gayatir 06/10/23 13:11:24 Post-Care Text: The patient is [...] Verified Availability Equipment, Medication Time Out Katia JACOBS MD, Verified (If Participants Clifford CHAN, KATEOR, Applicable) Ming Mendieta Jessica D Time Out Complete 06/10/23 14:32:00 Allergies Reviewed? Yes Allergies Reviewed Self/Patient With Body Position Low Lithotomy Prep Area penis Prep Agents Betadine Solution Skin. Condition Unable to Visualize Additional FISH Specimens Comment came from villarreal Specimens Collected Vitals - EU Blood Pressure [...] WOLFGANG Horton RN, Ruthann 06/10/23 15:18 Normal [facility] Main OR Preoperative Recordo n 06-10-2023 Main OR Preoperative Record Holding Area Document Type FTURO Summary Primary Physician: Katia JACOBS MD Finalized Date/Time: 06/10/23 14:49:26 Pt. Name: ALEX ANDERSON/Sex: 1945 Male Med Rec #: [id number] Physician: Ktaia JACOBS MD Financial #: [id number] Pt. Type: O Room/Bed: / Admit/Disch: 06/10/23 [...] GLASSES; BILATERAL Limitations: UP AD JOSIAH. PT [place] Comment: CATARACT LENS IMPLANTS Complaints of Pain: [...] WOLFGANG Horton RN, Ruthann 06/10/23 14:49 Normal [facility] Operative Reporton Operative Report Patient: MELISSA ANDERSON Age: 77 years Sex: Male : 1945 Associated Diagnoses: None Author: Katia JACOBS MD Procedure Operative Information Details: Date/ Time: [...] and is clear of blood clots, A Villarreal catheter is placed, the balloon inflated, and leg bag attached. Specimens Removed: None. Devices Implanted: None. Postoperative Information Discharge: The patient tolerates the procedure well and is discharged home in satisfactory condition, Discharge instructions are provided. [facility] Comment on above: Result Comment: Elec tronically Signed By: Katia JACOBS MD\.br\Date and Time Signed: 06/10/23 15:21 EST Operative Report Patient: MELISSA ANDERSON Age: 77 years Sex: Male : 1945 Associated Diagnoses: None Author: Katia JACOBS MD Procedure Operative Information Details: Date/ Time: [...] with antibiotic coverage, Follow up arranged. Normal [facility] Comment on above: Result Comment: Elec tronically Signed By: ARLENE CASILLAS, Katia Delgado\Date and Time Signed: 06/10/23 15:20 EST [facility] Fish and Urine Cyt o ([facility])on 06-10-2023 [facility] Method of Extraction Catheterized Normal [facility] Comment on above: Performed By: #### 1 [id number] #### [facility] [address] [id number] [facility] Number of Jars 1 Invalid Interpretation Code [facility] Comment on above: Performed By: #### 1 [id number] #### [facility] [address] [place] [address] [facility] Specimen Urine Normal [facility] Comment on above: Performed By: #### 1 [id number] #### [facility] [address] [place] [address] [facility] Type of Service Technical Only Normal [facility] Comment on above: Performed By: #### 1 [id number] #### [facility] [address] [place] [address] Alanine aminotransferase [En zymatic activity/volume] in Serum or PlasmaOrdered By: Celia Griffin on 04-08-2023 ALT [Catalytic activity/Vol] 17 U/L [facility] Albumin [Mass/volume] in Ser um or Plasma by Bromocresol green (BCG) dye binding methoOrdered By: Celia Griffin on 04-08-2023 Albumin BCG dye [Mass/Vol] 4.2 g/dL 3.5-5.7 [facility] Alkaline phosphatase [Enzyma tic activity/volume] in Serum or PlasmaOrdered By: Celia Griffin on 04-08-2023 ALP [Catalytic activity/Vol] 72 U/L 34-104 [facility] Aspartate aminotransferase [ Enzymatic activity/volume] in Serum or PlasmaOrdered By: Celia Griffin on 04-08-2023 AST [Catalytic activity/Vol] 16 U/L 13-39 [facility] Automated erythrocytes count in urine sediment (number/area)Ordered By: Celia Griffin on 04-08-2023 RBC Auto (Urine sed) [#/Area] 3-4 [HPF] 0-4 [facility] Automated leukocytes count i n urine sediment (number/area)Ordered By: Celia Griffin on 04-08-2023 WBC Auto (Urine sed) [#/Area] 50-100 [HPF] 0-4 [facility] Bilirubin Test strip Ql (U)O rdered By: Celia Griffin on 04-08-2023 Bilirubin Ql (U) Negative Negative [facility] Bilirubin.total [Mass/volume ] in Serum or PlasmaOrdered By: Celia Griffin on 04-08-2023 Bilirubin [Mass/Vol] 0.5 mg/dL 0.3-1.0 [facility] Calcium [Mass/volume] in Ser um or PlasmaOrdered By: Celia Griffin on 04-08-2023 Calcium [Mass/Vol] 9.3 mg/dL 8.6-10.3 [facility] Carbon dioxide, total [Moles /volume] in Serum or PlasmaOrdered By: Celia Griffin on 04-08-2023 CO2 [Moles/Vol] 31.6 mmol/L 21.0-31.0 [facility] Chloride [Moles/volume] in S marium or PlasmaOrdered By: Celia Griffin on 04-08-2023 Chloride [Moles/Vol] 107 mmol/L 98-107 [facility] Cholesterol [Mass/volume] in Serum or PlasmaOrdered By: Teo Stokes on 04-08-2023 Cholesterol [Mass/Vol] 107 mg/dL 140-200 [facility] Comment on above: Chol less than 200 m g/dl low riskChol 201-239 mg/dl borderline riskChol 240 mg/dl and greater high risk Cholesterol in LDL Calc [Mas s/Vol]Ordered By: Teo Stokes on 04-08-2023 Cholesterol in LDL [Mass/Vol] 47 mg/dL 0-100 [facility] Comment on above: LDL ATP III CLASSIFI CATIONLDL less than 100 mg/dL OptimalLDL 100-129 mg/dL Near or above optimalLDL 130-159 mg/dL Borderline highLDL 160-189 mg/dL HighLDL greater than 189 mg/dL Very high Cholesterol in VLDL Calc [Ma ss/Vol]Ordered By: Teo Stokes on 04-08-2023 Cholesterol in VLDL [Mass/Vol] 26 mg/dL [facility] Color Auto (U)Ordered By: Jonh Griffin on 04-08-2023 Color (U) Yellow Yellow [facility] Comprehensive Metabolic Pane howard 04-08-2023 Albumin [Mass/Vol] 4.2 g/dL Normal 3.5-5.7 [facility] Comment on above: Order Comment: Reaso n for Exam Acute kidney injury;Chronic kidney disease, stage 3b;Bilater Performed By: #### V [id number], MANDI, B12, MG, PHOS, CMP, FOL, FE and TIBC, URIC #### [facility] [address] Albumin/Globulin [Mass ratio] 1.5 {ratio} Normal [facility] Comment on above: Order Comment: Reaso n for Exam Acute kidney injury;Chronic kidney disease, stage 3b;Bilater Performed By: #### V [id number], MANDI, B12, MG, PHOS, CMP, FOL, FE and TIBC, URIC #### [facility] [address] [id number] [place] ALP [Catalytic activity/Vol] 72 U/L Normal 34-104 [facility] Comment on above: Order Comment: Reaso n for Exam Acute kidney injury;Chronic kidney disease, stage 3b;Bilater Performed By: #### V [id number], MANDI, B12, MG, PHOS, CMP, FOL, FE and TIBC, URIC #### [facility] [address] ALT [Catalytic activity/Vol] 17 U/L Normal 7-52 [facility] Comment on above: Order Comment: Reaso n for Exam Acute kidney injury;Chronic kidney disease, stage 3b;Bilater Performed By: #### V [id number], MANDI, B12, MG, PHOS, CMP, FOL, FE and TIBC, URIC #### [facility] [address] Anion gap [Moles/Vol] 8.9 mmol/L Normal 6.0-15.0 [facility] Comment on above: Order Comment: Reaso n for Exam Acute kidney injury;Chronic kidney disease, stage 3b;Bilater Performed By: #### V [id number], MANDI, B12, MG, PHOS, CMP, FOL, FE and TIBC, URIC #### [facility] [address] [place] [address] AST [Catalytic activity/Vol] 16 U/L Normal 13-39 [facility] Comment on above: Order Comment: Reaso n for Exam Acute kidney injury;Chronic kidney disease, stage 3b;Bilater Performed By: #### V [id number], MANDI, B12, MG, PHOS, CMP, FOL, FE and TIBC, URIC #### [facility] [address] Bilirubin [Mass/Vol] 0.5 mg/dL Normal 0.3-1.0 [facility] Comment on above: Order Comment: Reaso n for Exam Acute kidney injury;Chronic kidney disease, stage 3b;Bilater Performed By: #### V [id number], MANDI, B12, MG, PHOS, CMP, FOL, FE and TIBC, URIC #### [facility] [address] Calcium [Mass/Vol] 9.3 mg/dL Normal 8.6-10.3 [facility] Comment on above: Order Comment: Reaso n for Exam Acute kidney injury;Chronic kidney disease, stage 3b;Bilater Performed By: #### V [id number], MANDI, B12, MG, PHOS, CMP, FOL, FE and TIBC, URIC #### [facility] [address] Chloride [Moles/Vol] 107 mmol/L Normal 98-107 [facility] Comment on above: Order Comment: Reaso n for Exam Acute kidney injury;Chronic kidney disease, stage 3b;Bilater Performed By: #### V [id number], MANDI, B12, MG, PHOS, CMP, FOL, FE and TIBC, URIC #### [facility] [address] CO2 [Moles/Vol] 31.6 mmol/L High 21.0-31.0 [facility] Comment on above: Order Comment: Reaso n for Exam Acute kidney injury;Chronic kidney disease, stage 3b;Bilater Performed By: #### V [id number], MANDI, B12, MG, PHOS, CMP, FOL, FE and TIBC, URIC #### [facility] [address] Creatinine [Mass/Vol] 1.41 mg/dL High 0.70-1.30 [facility] Comment on above: Order Comment: Reaso n for Exam Acute kidney injury;Chronic kidney disease, stage 3b;Bilater Performed By: #### V [id number], MANDI, B12, MG, PHOS, CMP, FOL, FE and TIBC, URIC #### [facility] [address] GFR/1.73 sq M.predicted MDRD (S/P/Bld) [Vol rate/Area] 50.692 mL/min/{1.73_m2} Normal [facility] Comment on above: Order Comment: Reaso n for Exam Acute kidney injury;Chronic kidney disease, stage 3b;Bilater Performed By: #### V [id number], MANDI, B12, MG, PHOS, CMP, FOL, FE and TIBC, URIC #### [facility] [address] Globulin (S) [Mass/Vol] 2.8 g/dL Normal [facility] Comment on above: Order Comment: Reaso n for Exam Acute kidney injury;Chronic kidney disease, stage 3b;Bilater Performed By: #### V [id number], MANDI, B12, MG, PHOS, CMP, FOL, FE and TIBC, URIC #### [facility] [address] Glucose [Mass/Vol] 107 mg/dL High 70-100 [facility] Comment on above: Order Comment: Reaso n for Exam Acute kidney injury;Chronic kidney disease, stage 3b;Bilater Result Comment: [facility] Glucose Reference Range is dependent on time and content of last meal. Glucose of more than 200 mg/dL in a nonstressed, ambulatory subject supports the diagnosis of Diabetes Mellitus. ADA recommended reference range Performed By: #### V [id number], MANDI, B12, MG, PHOS, CMP, FOL, FE and TIBC, URIC #### [facility] [address] Potassium [Moles/Vol] 4.5 mmol/L Normal 3.5-5.1 [facility] Comment on above: Order Comment: Reaso n for Exam Acute kidney injury;Chronic kidney disease, stage 3b;Bilater Performed By: #### V [id number], MANDI, B12, MG, PHOS, CMP, FOL, FE and TIBC, URIC #### [facility] [address] Protein [Mass/Vol] 7.0 g/dL Normal 6.4-8.9 [facility] Comment on above: Order Comment: Reaso n for Exam Acute kidney injury;Chronic kidney disease, stage 3b;Bilater Performed By: #### V [id number], MANDI, B12, MG, PHOS, CMP, FOL, FE and TIBC, URIC #### [facility] [address] [place] [address] [place] Sodium [Moles/Vol] 143 mmol/L Normal 136-145 [facility] Comment on above: Order Comment: Reaso n for Exam Acute kidney injury;Chronic kidney disease, stage 3b;Bilater Performed By: #### V [id number], MANDI, B12, MG, PHOS, CMP, FOL, FE and TIBC, URIC #### [facility] [address] Urea nitrogen [Mass/Vol] 27 mg/dL High 7-25 [facility] Comment on above: Order Comment: Reaso n for Exam Acute kidney injury;Chronic kidney disease, stage 3b;Bilater Performed By: #### V [id number], MANDI, B12, MG, PHOS, CMP, FOL, FE and TIBC, URIC #### [facility] [address] Creatinine [Mass/volume] in Serum or PlasmaOrdered By: Celia Griffin on 04-08-2023 Creatinine [Mass/Vol] 1.41 mg/dL 0.70-1.30 [facility] Creatinine [Mass/volume] in UrineOrdered By: Celia Griffin on 04-08-2023 Creatinine (U) [Mass/Vol] 90.0 mg/dL 14.0-26.0 [facility] Dipstick and Microscopicon 1 06-08-2022 Appearance (U) Cloudy Critically abnormal Clear [facility] Comment on above: Order Comment: Reaso n for Exam Acute kidney injury;Chronic kidney disease, stage 3b;Bilater Performed By: #### V [id number], MANDI, B12, MG, PHOS, CMP, FOL, FE and TIBC, URIC #### [facility] [address] [place] [address] Bacteria,Urine 4+ High None Seen [facility] Comment on above: Order Comment: Reaso n for Exam Acute kidney injury;Chronic kidney disease, stage 3b;Bilater Performed By: #### V [id number], MANDI, B12, MG, PHOS, CMP, FOL, FE and TIBC, URIC #### [facility] [address] [place] [address] [place] Bilirubin,Urine Negative Normal Negative [facility] Comment on above: Order Comment: Reaso n for Exam Acute kidney injury;Chronic kidney disease, stage 3b;Bilater Performed By: #### V [id number], MANDI, B12, MG, PHOS, CMP, FOL, FE and TIBC, URIC #### [facility] [address] Color (U) Yellow Normal Yellow [facility] Comment on above: Order Comment: Reaso n for Exam Acute kidney injury;Chronic kidney disease, stage 3b;Bilater Performed By: #### V [id number], MANDI, B12, MG, PHOS, CMP, FOL, FE and TIBC, URIC #### [facility] [address] Glucose Ql (U) Normal Normal Normal [facility] Comment on above: Order Comment: Reaso n for Exam Acute kidney injury;Chronic kidney disease, stage 3b;Bilater Performed By: #### V [id number], MANDI, B12, MG, PHOS, CMP, FOL, FE and TIBC, URIC #### [address] Hyaline Casts,Urine 9-19 High 0-8 [facility] Comment on above: Order Comment: Reaso n for Exam Acute kidney injury;Chronic kidney disease, stage 3b;Bilater Result Comment: PERF ORMED BY: [place] [address] PATH[employer] OREN OWEN M.D. Performed By: #### V [id number], MANDI, B12, MG, PHOS, CMP, FOL, FE and TIBC, URIC #### [address] Ketones Ql (U) Negative Normal Negative [facility] Comment on above: Order Comment: Reaso n for Exam Acute kidney injury;Chronic kidney disease, stage 3b;Bilater Performed By: #### V [id number], MANDI, B12, MG, PHOS, CMP, FOL, FE and TIBC, URIC #### [address] Leukocyte esterase Test strip Ql (U) 4+ High Negative [facility] Comment on above: Order Comment: Reaso n for Exam Acute kidney injury;Chronic kidney disease, stage 3b;Bilater Performed By: #### V [id number], MANDI, B12, MG, PHOS, CMP, FOL, FE and TIBC, URIC #### [address] Nitrite,Urine Positive High Negative [facility] Comment on above: Order Comment: Reaso n for Exam Acute kidney injury;Chronic kidney disease, stage 3b;Bilater Performed By: #### V [id number], MANDI, B12, MG, PHOS, CMP, FOL, FE and TIBC, URIC #### [address] Occult Blood,Urine 1+ High Negative [facility] Comment on above: Order Comment: Reaso n for Exam Acute kidney injury;Chronic kidney disease, stage 3b;Bilater Result Comment: PERF ORMED BY: [place] [address] PATH[employer] OREN OWEN M.D. Performed By: #### V [id number], MANDI, B12, MG, PHOS, CMP, FOL, FE and TIBC, URIC #### [address] pH (U) 7.0 [pH] Normal 5.0-9.0 [facility] Comment on above: Order Comment: Reaso n for Exam Acute kidney injury;Chronic kidney disease, stage 3b;Bilater Performed By: #### V [id number], MANDI, B12, MG, PHOS, CMP, FOL, FE and TIBC, URIC #### [address] Protein,Urine Trace High Negative [facility] Comment on above: Order Comment: Reaso n for Exam Acute kidney injury;Chronic kidney disease, stage 3b;Bilater Performed By: #### V [id number], MANDI, B12, MG, PHOS, CMP, FOL, FE and TIBC, URIC #### [address] RBC,Urine 3-4 Normal 0-4 [facility] Comment on above: Order Comment: Reaso n for Exam Acute kidney injury;Chronic kidney disease, stage 3b;Bilater Performed By: #### V [id number], MANDI, B12, MG, PHOS, CMP, FOL, FE and TIBC, URIC #### [address] Specificy [place],Urine 1.017 Normal 1.00 1-1.03 0 [facility] Comment on above: Order Comment: Reaso n for Exam Acute kidney injury;Chronic kidney disease, stage 3b;Bilater Performed By: #### V [id number], MANDI, B12, MG, PHOS, CMP, FOL, FE and TIBC, URIC #### [facility] [address] Squamous Epithelial Cell,Urine 0-1 Normal 0-2 [facility] Comment on above: Order Comment: Reaso n for Exam Acute kidney injury;Chronic kidney disease, stage 3b;Bilater Performed By: #### V [id number], MANDI, B12, MG, PHOS, CMP, FOL, FE and TIBC, URIC #### [facility] [address] Urobilinogen,Urine Normal Normal Normal [facility] Comment on above: Order Comment: Reaso n for Exam Acute kidney injury;Chronic kidney disease, stage 3b;Bilater Performed By: #### V [id number], MANDI, B12, MG, PHOS, CMP, FOL, FE and TIBC, URIC #### [facility] [address] WBC,Urine 50-100 High 0-4 [facility] Comment on above: Order Comment: Reaso n for Exam Acute kidney injury;Chronic kidney disease, stage 3b;Bilater Performed By: #### V [id number], MANDI, B12, MG, PHOS, CMP, FOL, FE and TIBC, URIC #### [facility] [address] Erythrocyte distribution wid th Auto (RBC) [Ratio]Ordered By: Celia Griffin on 04-08-2023 Erythrocyte distribution width (RBC) [Ratio] 15.7 % 12.0-14.8 [facility] Ferritinon 04-08-2023 Ferritin [Mass/Vol] 34.1 ng/mL Normal 23.9-336.2 [facility] Comment on above: Order Comment: Reaso n for Exam Acute kidney injury;Chronic kidney disease, stage 3b;Bilater Performed By: #### V [id number], MANDI, B12, MG, PHOS, CMP, FOL, FE and TIBC, URIC #### [facility] [address] [place] [address] [place] Ferritin [Mass/volume] in Se rum or PlasmaOrdered By: Celia Griffin on 04-08-2023 Ferritin [Mass/Vol] 34.1 ng/mL 23.9-336.2 [facility] Folateon 04-08-2023 Folate 34.0 ng/mL Normal >5.9 [facility] Comment on above: Order Comment: Reaso n for Exam Acute kidney injury;Chronic kidney disease, stage 3b;Bilater Result Comment: Caryn te reference range: >5.9 ng/ml The WHO technical consultation on folate and vitamin b12 deficiencies has determined that folate concentrations less than 4 ng/ml are considered deficient. Performed By: #### V [id number], MANDI, B12, MG, PHOS, CMP, FOL, FE and TIBC, URIC #### [facility] [address] [place] [address] [place] Folate [Mass/volume] in Seru m or PlasmaOrdered By: Celia Griffin on 04-08-2023 Folate [Mass/Vol] 34.0 ng/mL >5.9 [facility] Comment on above: Folate reference ran ge: >5.9 ng/mlThe WHO technical consultation on folate and vitamin u91qiptecoltygt has determined that folate concentrations lessthan 4 ng/ml are considered deficient. Globulin Calc (S) [Mass/Vol] Ordered By: Celia Griffin on 04-08-2023 Globulin (S) [Mass/Vol] 2.8 g/dL [facility] Glucose [Mass/volume] in Ser um or PlasmaOrdered By: Celia Griffin on 04-08-2023 Glucose [Mass/Vol] 107 mg/dL 70-100 [facility] Comment on above: ADA recommended refe rence rangeRandom Glucose Reference Range is dependent on time and content of last meal. Glucose of more than 200 mg/dL in a nonstressed, ambulatory subject supports the diagnosis of Diabetes Mellitus. Hematocrit Auto (Bld) [Volum e fraction]Ordered By: Celia Griffin on 04-08-2023 Hematocrit (Bld) [Volume fraction] 43.8 % 38.8-50.0 [facility] Hemoglobin [Mass/volume] in BloodOrdered By: Celia Griffin on 04-08-2023 Hemoglobin (Bld) [Mass/Vol] 14.3 g/dL 13.0-17.0 [facility] Hemogram CBC Without Diffon 04-08-2023 Erythrocyte distribution width (RBC) [Ratio] 15.7 % High 12.0-14.8 [facility] Comment on above: Order Comment: Reaso n for Exam Acute kidney injury;Chronic kidney disease, stage 3b;Bilater Performed By: #### V [id number], MANDI, B12, MG, PHOS, CMP, FOL, FE and TIBC, URIC #### [facility] [address] [place] [address] Hematocrit (Bld) [Volume fraction] 43.8 % Normal 38.8-50.0 [facility] Comment on above: Order Comment: Reaso n for Exam Acute kidney injury;Chronic kidney disease, stage 3b;Bilater Performed By: #### V [id number], MANDI, B12, MG, PHOS, CMP, FOL, FE and TIBC, URIC #### [facility] [address] [place] [address] Hemoglobin (Bld) [Mass/Vol] 14.3 g/dL Normal 13.0-17.0 [facility] Comment on above: Order Comment: Reaso n for Exam Acute kidney injury;Chronic kidney disease, stage 3b;Bilater Performed By: #### V [id number], MANDI, B12, MG, PHOS, CMP, FOL, FE and TIBC, URIC #### [facility] [address] [place] [address] MCH (RBC) [Entitic mass] 27.3 pg Low 27.5-35.2 [facility] Comment on above: Order Comment: Reaso n for Exam Acute kidney injury;Chronic kidney disease, stage 3b;Bilater Performed By: #### V [id number], MANDI, B12, MG, PHOS, CMP, FOL, FE and TIBC, URIC #### [facility] [address] [place] [address] MCV (RBC) [Entitic vol] 83.8 fL Normal 83.5-101 [facility] Comment on above: Order Comment: Reaso n for Exam Acute kidney injury;Chronic kidney disease, stage 3b;Bilater Performed By: #### V [id number], MANDI, B12, MG, PHOS, CMP, FOL, FE and TIBC, URIC #### [facility] [address] Mean Corpuscular HGB Conc 32.6 g/dL Normal 32.5-35.6 [facility] Comment on above: Order Comment: Reaso n for Exam Acute kidney injury;Chronic kidney disease, stage 3b;Bilater Performed By: #### V [id number], MANDI, B12, MG, PHOS, CMP, FOL, FE and TIBC, URIC #### [address] Platelet mean volume (Bld) [Entitic vol] 8.6 fL Normal 6.6-10.1 [facility] Comment on above: Order Comment: Reaso n for Exam Acute kidney injury;Chronic kidney disease, stage 3b;Bilater Result Comment: PERF ORMED BY: [place] [address] PATHOLOG[employer] OREN OWEN M.D. Performed By: #### V [id number], MANDI, B12, MG, PHOS, CMP, FOL, FE and TIBC, URIC #### [address] Platelets (Bld) [#/Vol] 201 10*3/uL Normal 150-450 [facility] Comment on above: Order Comment: Reaso n for Exam Acute kidney injury;Chronic kidney disease, stage 3b;Bilater Performed By: #### V [id number], MANDI, B12, MG, PHOS, CMP, FOL, FE and TIBC, URIC #### [address] RBC (Bld) [#/Vol] 5.22 10*6/uL Normal 3.90-5.60 [facility] Comment on above: Order Comment: Reaso n for Exam Acute kidney injury;Chronic kidney disease, stage 3b;Bilater Performed By: #### V [id number], MANDI, B12, MG, PHOS, CMP, FOL, FE and TIBC, URIC #### [facility] [address] WBC (Bld) [#/Vol] 8.4 10*3/uL Normal 4.1-10.5 [facility] Comment on above: Order Comment: Reaso n for Exam Acute kidney injury;Chronic kidney disease, stage 3b;Bilater Performed By: #### V [id number], MANDI, B12, MG, PHOS, CMP, FOL, FE and TIBC, URIC #### [facility] [address] [place] [address] Iron [Mass/volume] in Serum or PlasmaOrdered By: Celia Griffin on 04-08-2023 Iron [Mass/Vol] 53 ug/dL 50-212 [facility] Iron and TIBC Profileon 03-26 % Iron Saturation 14.3 % Low 20-50 [facility] Comment on above: Order Comment: Reaso n for Exam Acute kidney injury;Chronic kidney disease, stage 3b;Bilater Performed By: #### V [id number], MANDI, B12, MG, PHOS, CMP, FOL, FE and TIBC, URIC #### [facility] [address] [place] [address] Iron [Mass/Vol] 53 ug/dL Normal 50-212 [facility] Comment on above: Order Comment: Reaso n for Exam Acute kidney injury;Chronic kidney disease, stage 3b;Bilater Performed By: #### V [id number], MANDI, B12, MG, PHOS, CMP, FOL, FE and TIBC, URIC #### [facility] [address] [place] [address] Total Iron Binding Capacity 370 ug/dL Normal 255-450 [facility] Comment on above: Order Comment: Reaso n for Exam Acute kidney injury;Chronic kidney disease, stage 3b;Bilater Performed By: #### V [id number], MANDI, B12, MG, PHOS, CMP, FOL, FE and TIBC, URIC #### [facility] [address] [place] [address] [place] Transferrin [Mass/Vol] 264 mg/dL Normal 203-362 [facility] Comment on above: Order Comment: Reaso n for Exam Acute kidney injury;Chronic kidney disease, stage 3b;Bilater Performed By: #### V [id number], MANDI, B12, MG, PHOS, CMP, FOL, FE and TIBC, URIC #### [facility] [address] Iron binding capacity [Mass/ volume] in Serum or PlasmaOrdered By: Celia Griffin on 04-08-2023 Iron binding capacity [Mass/Vol] 370 ug/dL 255-450 [facility] Iron saturation [Mass Fracti on] in Serum or PlasmaOrdered By: Celia Griffin on 04-08-2023 Iron saturation [Mass fraction] 14.3 % 20-50 [facility] Ketones Auto test strip (U) [Mass/Vol]Ordered By: Celia Griffin on 04-08-2023 Ketones (U) [Mass/Vol] Negative Negative [facility] - UrinalysisOrder ed By: Celia Griffin on 04-08-2023 Hyaline casts LM Ql (Urine sed) 9-19 [LPF] 0-8 [facility] Leukocytes [#/volume] correc phil for nucleated erythrocytes in Blood by Automated counOrdered By: Celia Griffin on 04-08-2023 WBC corrected for nucl RBC Auto (Bld) [#/Vol] 8.4 10*3/uL 4.1-10.5 [facility] Lipid Panelon 04-08-2023 Cholesterol [Mass/Vol] 107 mg/dL Low 140-200 [facility] Comment on above: Result Comment: Chol less than 200 mg/dl low risk Chol 201-239 mg/dl borderline risk Chol 240 mg/dl and greater high risk Performed By: #### V [id number], MANDI, B12, MG, PHOS, CMP, FOL, FE and TIBC, URIC #### [facility] [address] Cholesterol in HDL [Mass/Vol] 34 mg/dL Normal 23-92 [facility] Comment on above: Result Comment: HDL CHOL ATP-III CLASSIFICATION Cardiovascular Risk HDL > or equal to 60 mg/dL LOW HDL < 40 mg/dL HIGH Performed By: #### V [id number], MANDI, B12, MG, PHOS, CMP, FOL, FE and TIBC, URIC #### [facility] [address] Cholesterol.total/Sonya sterol in HDL [Mass ratio] 3.1 {ratio} Normal <5.0 [facility] Comment on above: Result Comment: PERF ORMED BY: [place] [address] PATHOLOGIST [employer] OR[employer] OWEN M.D. Performed By: #### V [id number], MANDI, B12, MG, PHOS, CMP, FOL, FE and TIBC, URIC #### [facility] [address] LDL Cholesterol,Calculated 47 mg/dL Normal 0-100 [facility] Comment on above: Result Comment: LDL ATP III CLASSIFICATION LDL less than 100 mg/dL Optimal LDL 100-129 mg/dL Near or above optimal LDL 130-159 mg/dL Borderline high LDL 160-189 mg/dL High LDL greater than 189 mg/dL Very high Performed By: #### V [id number], MANDI, B12, MG, PHOS, CMP, FOL, FE and TIBC, URIC #### [facility] [address] Triglyceride w/Reflex 131 mg/dL Normal 0-149 [facility] Comment on above: Result Comment: TRIG ATP III CLASSIFICATION TRIG less than 150 mg/dL Normal TRIG 150-199 mg/dL Borderline high TRIG 200-500 mg/dL High TRIG greater than 500 mg/dL Very high Standard traceable to the Center for Disease Conrtrol and Prevention (CDC) test method. Performed By: #### V [id number], MANDI, B12, MG, PHOS, CMP, FOL, FE and TIBC, URIC #### [facility] [address] VLDL CHOLESTEROL 26 mg/dL Normal [facility] Comment on above: Performed By: #### V [id number], MANDI, B12, MG, PHOS, CMP, FOL, FE and TIBC, URIC #### [facility] [address] [place] [address] [place] MCH Auto (RBC) [Entitic mass ]Ordered By: Celia Griffin on 04-08-2023 MCH (RBC) [Entitic mass] 27.3 pg 27.5-35.2 [facility] MCHC Auto (RBC) [Mass/Vol]Or dered By: Ceila Griffin on 04-08-2023 MCHC (RBC) [Mass/Vol] 32.6 g/dL 32.5-35.6 [facility] MCV Auto (RBC) [Entitic vol] Ordered By: Ceila Griffin on 04-08-2023 MCV (RBC) [Entitic vol] 83.8 fL 83.5-101 [facility] Magnesiumon 04-08-2023 Magnesium [Mass/Vol] 2.2 mg/dL Normal 1.9-2.7 [facility] Comment on above: Order Comment: Reaso n for Exam Acute kidney injury;Chronic kidney disease, stage 3b;Bilater Performed By: #### V [id number], MANDI, B12, MG, PHOS, CMP, FOL, FE and TIBC, URIC #### [facility] [address] Magnesium [Mass/volume] in S marium or PlasmaOrdered By: Celia Griffin on 04-08-2023 Magnesium [Mass/Vol] 2.2 mg/dL 1.9-2.7 [facility] Nitrite Test strip Ql (U)Ord ered By: Celia Griffin on 04-08-2023 Nitrite Ql (U) Positive Negative [facility] No Panel InformationOrdered By: Celia Griffin on 04-08-2023 Estimated GFR (CKD-EPI) 50.692 mL/Min [facility] Creatinine Clearance (Chem N/A [facility] Parathyrin.intact [Mass/volu me] in Serum or PlasmaOrdered By: Celia Griffin on 04-08-2023 Parathyrin.intact [Mass/Vol] 76.6 pg/mL [facility] Parathyroid Hormone Intacton 04-08-2023 Parathyroid Hormone Intact 76.6 pg/mL Normal [facility] Comment on above: Order Comment: Reaso n for Exam Acute kidney injury;Chronic kidney disease, stage 3b;Bilater Result Comment: PERF ORMED BY: [place] [address] PATHOLOG[employer] OR[employer] OWEN M.D. Performed By: #### V [id number], MANDI, B12, MG, PHOS, CMP, FOL, FE and TIBC, URIC #### [facility] [address] [place] [address] [place] Phosphate [Mass/volume] in S marium or PlasmaOrdered By: Celia Griffin on 04-08-2023 Phosphate [Mass/Vol] 2.8 mg/dL 2.5-4.5 [facility] Phosphoruson 04-08-2023 Phosphate [Mass/Vol] 2.8 mg/dL Normal 2.5-4.5 [facility] Comment on above: Order Comment: Reaso n for Exam Acute kidney injury;Chronic kidney disease, stage 3b;Bilater Performed By: #### V [id number], MANDI, B12, MG, PHOS, CMP, FOL, FE and TIBC, URIC #### [facility] [address] [place] [address] [place] Platelet mean volume Auto (B ld) [Entitic vol]Ordered By: Celia Griffin on 04-08-2023 Platelet mean volume (Bld) [Entitic vol] 8.6 fL 6.6-10.1 [facility] Platelets Auto (Bld) [#/Vol] Ordered By: Celia Griffin on 04-08-2023 Platelets (Bld) [#/Vol] 201 10*3/uL 150-450 [facility] Potassium [Moles/volume] in Serum or PlasmaOrdered By: Celia Griffin on 04-08-2023 Potassium [Moles/Vol] 4.5 mmol/L 3.5-5.1 [facility] Protein Auto test strip (U) [Mass/Vol]Ordered By: Celia Griffin on 04-08-2023 Protein (U) [Mass/Vol] Trace mg/dL Negative [facility] Protein Creat Ratio Ur Rando mon 04-08-2023 Creatinine, Urine (Random) 90.0 mg/dL High 14.0-26.0 [facility] Comment on above: Order Comment: Reaso n for Exam Acute kidney injury;Chronic kidney disease, stage 3b;Bilater Performed By: #### V [id number], MANDI, B12, MG, PHOS, CMP, FOL, FE and TIBC, URIC #### [facility] [address] Protein (U) [Mass/Vol] 30 mg/dL High 0-9 [facility] Comment on above: Order Comment: Reaso n for Exam Acute kidney injury;Chronic kidney disease, stage 3b;Bilater Performed By: #### V [id number], MANDI, B12, MG, PHOS, CMP, FOL, FE and TIBC, URIC #### [facility] [address] Urine Protein/Creatinine Ratio 333 mg/g{Cre} High 0-200 [facility] Comment on above: Order Comment: Reaso n for Exam Acute kidney injury;Chronic kidney disease, stage 3b;Bilater Result Comment: PERF ORMED BY: [place] [address] PATHOLOGIST [employer] OR[employer] OWEN M.D. Performed By: #### V [id number], MANDI, B12, MG, PHOS, CMP, FOL, FE and TIBC, URIC #### [facility] [address] Protein [Mass/volume] in Ser um or PlasmaOrdered By: Celia Griffin on 04-08-2023 Protein [Mass/Vol] 7.0 g/dL 6.4-8.9 [facility] Protein [Mass/volume] in Uri neOrdered By: Celia Griffin on 04-08-2023 Protein (U) [Mass/Vol] 30 mg/dL 0-9 [facility] RBC Auto (Bld) [#/Vol]Ordere d By: Celia Griffin on 04-08-2023 RBC (Bld) [#/Vol] 5.22 10*6/uL 3.90-5.60 [facility] Serum or plasma albumin/glob ulin mass ratioOrdered By: Celia Griffin on 04-08-2023 Albumin/Globulin [Mass ratio] 1.5 {ratio} [facility] Serum or plasma anion gap de terminationOrdered By: Celia Griffin on 04-08-2023 Anion gap [Moles/Vol] 8.9 mmol/L 6.0-15.0 [facility] Serum or plasma high density lipoprotein (HDL) cholesterol measurementOrdered By: Teo Stokes on 04-08-2023 Cholesterol in HDL [Mass/Vol] 34 mg/dL 23-92 [facility] Comment on above: HDL CHOL ATP-III CLA SSIFICATION Cardiovascular RiskHDL > or equal to 60 mg/dL LOWHDL < 40 mg/dL HIGH Serum or plasma total choles terol/high density lipoprotein (HDL) cholesterol mass ratOrdered By: Teo Stokes on 04-08-2023 Cholesterol.total/Sonya sterol in HDL [Mass ratio] 3.1 {ratio} <5.0 [facility] Sodium [Moles/volume] in Ser um or PlasmaOrdered By: Celia Griffin on 04-08-2023 Sodium [Moles/Vol] 143 mmol/L 136-145 [facility] Specific gravity Auto test s trip (U) [Rel density]Ordered By: Celia Griffin on 04-08-2023 Specific gravity (U) [Rel density] 1.017 1.001-1.03 0 [facility] Squamous epithelial cells de tection in urine sediment by light microscopyOrdered By: Celia Griffin 04-08-2023 Epithelial cells.squamous LM Ql (Urine sed) 0-1 [HPF] 0-2 [facility] Transferrin [Mass/volume] in Serum or PlasmaOrdered By: Celia Griffin on 04-08-2023 Transferrin [Mass/Vol] 264 mg/dL 203-362 [facility] Triglyceride [Mass/volume] i n Serum or PlasmaOrdered By: Teo Stokes on 04-08-2023 Triglyceride [Mass/Vol] 131 mg/dL 0-149 [facility] Comment on above: TRIG ATP III CLASSIF ICATIONTRIG less than 150 mg/dL NormalTRIG 150-199 mg/dL Borderline highTRIG 200-500 mg/dL High TRIG greater than 500 mg/dL Very highStandard traceable to the Center for Disease Conrtrol and Prevention (CDC) test method. Urate [Mass/volume] in Serum or PlasmaOrdered By: Celia Griffin on 04-08-2023 Urate [Mass/Vol] 6.0 mg/dL 4.4-7.6 [facility] Urea nitrogen [Mass/volume] in Serum or PlasmaOrdered By: Celia Griffin on 04-08-2023 Urea nitrogen [Mass/Vol] 27 mg/dL 7-25 [facility] Uric Acidon 04-08-2023 Urate [Mass/Vol] 6.0 mg/dL Normal 4.4-7.6 [facility] Comment on above: Order Comment: Reaso n for Exam Acute kidney injury;Chronic kidney disease, stage 3b;Bilater Performed By: #### V [id number], MANDI, B12, MG, PHOS, CMP, FOL, FE and TIBC, URIC #### [address] Urine Cultureon 04-08-2023 Bacteria identified Cx Nom (U) ORGANISM: Klebsiella oxytoca (O:KLEOXY) [place] Count >100,000 ORGANISM: Morganella morganii (O:MORMOR) [place] Count >100,000 Aerobic RITESH Charge (NMIC56) SUSCEPTIBILITY [...] RESISTANT TO ALL B-LACTAM DRUGS. PERFORMED BY: [place] [address] PATHOLOGIST [employer] OREN OWEN M.D. Normal [facility] Comment on above: Performed By: #### V [id number], MANDI, B12, MG, PHOS, CMP, FOL, FE and TIBC, URIC #### [facility] [address] [place] [address] [place] Urine bacteria detection by automated methodOrdered By: Celia Griffin on 04-08-2023 Bacteria Auto Ql (U) 4+ None Seen [facility] Urine clarity by refractomet ry automatedOrdered By: Celia Griffin on 04-08-2023 Clarity Refractometry automated (U) Cloudy Clear [facility] Urine glucose measurement by automated test strip (mass/volume)Ordered By: Celia Griffin on 04-08-2023 Glucose Auto test strip (U) [Mass/Vol] Normal mg/dL Normal [facility] Urine hemoglobin detection b y automated test stripOrdered By: Celia Griffin on 04-08-2023 Hemoglobin Auto test strip Ql (U) 1+ Negative [facility] Urine leukocyte esterase det ection by automated test stripOrdered By: Celia Griffin on 04-08-2023 Leukocyte esterase Auto test strip Ql (U) 4+ Negative [facility] Urine protein/creatinine rat ioOrdered By: Celia Griffin on 04-08-2023 Protein/Creatinine (U) [Ratio] 333 mg/g{Cre} 0-200 [facility] Urobilinogen Auto test strip (U) [Mass/Vol]Ordered By: Celia Griffin on 04-08-2023 Urobilinogen (U) [Mass/Vol] Normal mg/dL Normal [facility] Vitamin B12on 04-08-2023 Cobalamin (Vitamin B12) [Mass/Vol] 301 pg/mL Normal 180-914 [facility] Comment on above: Order Comment: Reaso n for Exam Acute kidney injury;Chronic kidney disease, stage 3b;Bilater Performed By: #### V [id number], MANDI, B12, MG, PHOS, CMP, FOL, FE and TIBC, URIC #### [facility] [place] [facility] [address] Vitamin B12 ser/plasOrdered By: Celia Griffin on 04-08-2023 Cobalamin (Vitamin B12) [Mass/Vol] 301 pg/mL 180-914 [facility] Vitamin D 25 Hydroxy Totalon 04-08-2023 Vitamin D 25 Hydroxy Total 37.5 ng/mL Normal 30-100 [facility] Comment on above: Order Comment: Reaso n for Exam Acute kidney injury;Chronic kidney disease, stage 3b;Bilater Result Comment: CHINO MIN D STATUS 25(OH)VITAMIN D RANGE (ng/mL) Deficient <20 Insufficient 20 to <30 Sufficient 30 to 100 Reference: Federico Coleman, Palomo LESLIE, et al. Evaluation,treatment, and prevention of vitamin D deficiency; an Endocrine Society clinical practice guideline. JCEM. 2010; 96(7):191-. PERFORMED BY: [place] [address] PATHOLOGIST [employer] OREN OWEN M.D. Performed By: #### V [id number], MANDI, B12, MG, PHOS, CMP, FOL, FE and TIBC, URIC #### [address] Vitamin D+Metabolites [Mass/ volume] in Serum or PlasmaOrdered By: Celia Griffin on 04-08-2023 Vitamin D+Metabolites [Mass/Vol] 37.5 ng/mL 30-100 [facility] Comment on above: VITAMIN D STATUS 25( [place])VITAMIN D RANGE (ng/mL) Deficient <20 Insufficient 20 to <30Sufficient 30 to 100Reference: Federico Coleman, Palomo LESLIE, et al. Evaluation,treatment, and prevention of vitamin D deficiency; an Endocrine Society clinical practice guideline. JCEM. 2010; 96(7):191-. pH Auto test strip (U)Ordere d By: Celia Griffin on 04-08-2023 pH (U) 7.0 [pH] 5.0-9.0 [facility] UroVysion Fish and Urine Cyt o ([facility])on 03-18-2023 UVFISH & UC Diagnosis Info Invalid Interpretation Code [facility] Comment on above: Result Comment: A:Ur [...] correlated with cytology and cystoscopy results.* CPT 12129, 03241. 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 Electronically signed by : on: 03/18/2023 13:35:55 Performed By: #### 1 [id number] #### [facility] [address] [place] [address] Consent for Procedure/Surger yon 03-12-2023 Consent for Procedure/Surgery [id number]#1.00TIFF Normal [facility] Ambulatory Visit Summaryon 1 Ambulatory Visit Summary ALEX ANDERSON :1945 Visit Date:03/11/2023 Ambulatory Visit Instructions Your Diagnosis History of bladder cancer Urinary retention BPH with urinary obstruction Dementia Your Care Team Attending Physician - Katia JACOBS MD Primary Care Physician - STANLEY EMERSON MD This Is Your Medications List ciprofloxacin (Cipro [...] Where: [facility] [address], [place] [address]- Medications What How Much When Instructions Unchanged [...] kidney and (more content not included)... Normal [facility] Patient Educationon 03-11-20 23 Patient Education [...] including vitamins, herbs, eye drops, creams, and owmz-rcw-pwjyokf medicines. ? Any problems you or family [...] tells you to take them. ? Taking lojb-hwm-ftcejqd medicines, vitamins, herbs, and supplements. Surgery safety [...] health care (more content not included)... Normal [facility] UroVysion Fish and Urine Cyt o ([facility])on 03-11-2023 [facility] Method of Extraction Bladder Urine Normal [facility] Comment on above: Performed By: #### 1 [id number] #### [facility] [address] [place] [address] [facility] Number of Jars 1 Invalid Interpretation Code [facility] Comment on above: Performed By: #### 1 [id number] #### [facility] [address] [place] [address] [facility] Specimen Bladder Wash Normal [facility] Comment on above: Performed By: #### 1 [id number] #### [facility] [address] [place] [address] [facility] Type of Service Technical Only Normal [facility] Comment on above: Performed By: #### 1 [id number] #### [facility] [address] [place] [address] Urology Office/Clinic Noteon 03-11-2023 Urology Office/Clinic Note Chief Complaint Cysto HPI Staff Pt here for 3 mos surveillance cysto, FISH, cytol. Urodynamics 01/07/23. Pt has Villarreal, Villarreal gets changed monthly by home health nurse, [...] Retention of urine, unspecified) Pt presented to [facility] ER on 09/15/22 due to catheter [...] Contact Information ARLENE CASILLAS, Katia Hall, URL In 3 months [facility] [address], [place] [address]- Additional Instructions: Sched cysto/FISH/Cytol/BT check Patient Education Benign Prostatic Hyperplasia I, Dalila Lala , personally scribed for Dr. Jacobs on 03/11/2023 14:20:53. Electronically signed by emma Lala on (more content not included)... Normal [facility] Comment on above: Result Comment: Elec tronically Signed By: Katia JACOBS MD\.br\Date and Time Signed: 03/11/23 14:23 EDT\.br\Electronically [...] Lipid Panel; Status:Active - Retrospective Authorization; Requested for:[id number]; Overweight with body mass index (BMI) of 27 to 27.9 in adult Healthy Weight Tips; Status:Complete - Retrospective Authorization; Done: [id number] Some eating tips that can help you lose weight.; Status:Complete - Retrospective Authorization; Done: [id number] SocHx: Current smoker Start: Aspirin 81 MG Oral Tablet Delayed Release; TAKE 1 TABLET DAILY Tobacco Use Screening; Status:Complete; Done: [id number] You need to stop smoking. Though it is not easy, more than half of all adult smokers have quit. We encourage you to write down all the reasons you should quit smoking and set a quit date for yourself. Ask us how we can help. You may also call 2-336-KSWJNOW for free resources and assistance.; Status:Complete - Retrospective Authorization; Done: [id number] Tobacco Use Screening; Status:Complete; Done: [id number] Patient Instructions Please bring all medicines, vitamins, [...] negative for complaint. Vitals Vital Signs Recorded: 01Jcw2626 09:57AM Heart Rate72, L Radial Juesfhbz474, LUE, Sitting Hsdtfmjof63, LUE, Sitting Height6 ft 2 in Liujnk988 lb BMI Lorwaazfhd51.35 kg/m2 BSA Calculat (more content not included)... Normal [facility] Tobacco Screening.on 023 Fall risk assessment a) No falls within the last year [facility] [employer] DO Work Phone: Tobacco use status CP a) Yes [facility] [email or web address] 250 DO Work Phone: Tobacco Screening. Yes [facility] [email or web address] 250 DO Work Phone: IntraOperative Documentson 0 01-13-2023 IntraOperative Documents [id number]#1.00CD:127 Normal [facility] Consent for Procedure/Surger yon 01-07-2023 Consent for Procedure/Surgery [id number]#1.00CD:127 Normal [facility] IntraOperative Documentson 0 01-07-2023 IntraOperative Documents [id number]#1.00CD:127 Normal [facility] Consent for Treatmenton Consent for Treatment [id number]#1.00CD:127 Normal [facility] UroVysion Fish and Urine Cyt o ([facility])on 12-17-2022 UV[facility] & UC Diagnosis Info Invalid Interpretation Code [facility] Comment on above: Result Comment: A:Ur [...] correlated with cytology and cystoscopy results.* CPT 06308, 66195. Microscopic Notes - Microscopic Notes - Abnormal cells 9p21 deletions: Abnormal cells aneploid events: Total cells analyzed: 101 Hematuria: Gross Description Site ID:A color No Color fixative Alcohol Received 60 mls of clear no color fluid with the patient's name and, Urine on the vial. Electronically signed by : on: 12/17/2022 09:12:29 Performed By: #### 1 [id number] ####[facility] [address] [place] [address] Urology Office/Clinic Noteon 12-16-2022 Urology Office/Clinic Note Chief Complaint Cysto/Fish/cytology HPI Staff 77 year old male here for Cysto/fish/cytology. ABX taken. Pt. did not have Urocuff done due to not be able to urinate and catheter was placed. History of Present Illness Tests reviewed: reviewed none. I have reviewed the previous health record information and history for this patient from Dr. Jacobs. I have reviewed and verified the staff [...] Retention of urine, unspecified) Pt presented to [facility] ER on 09/15/22 due to catheter [...] Katia Hall, URL [facility] [address] [place] [address]- Additional Instructions: Follow up after urodynamics for 3 mos cysto/bt ck/FISH/cytol Patient Education Cancer Screening for Men I, Citlalli Rushing, personally scribed for Dr. Jacobs on 12/10/2022 13:37:32. . Documentation recorded by the scribe, Citlalli Rushing, accurately reflects the services(s) I performed and decisions made by me. Authenticated by Dr. Jacobs on 12/10/2022 13:42:31. 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 Normal [facility] Comment on above: Result Comment: Elec tronically Signed By: Dana Rivas\.br\Date and Time Signed: 12/16/22 11:30 EDT Consent for Procedure/Surger yon 12-11-2022 Consent for Procedure/Surgery [id number]#1.00CD:127 Normal [facility] Ambulatory Visit Summaryon 0 12-10-2022 Ambulatory [...] with ARLENE CASILLAS, Katia Hall, URL When: Where: [facility] [address] , [place] [address]- Medications What How Much When Instructions Unchanged [...] with r (more content not included)... Normal [facility] Patient Educationon 12-11-19 Patient Education Oncology [...] if anything looks unusual. Men with a nzwdyf-ptot-qxpljx risk for skin cancer may want to see a 4 h youth development specialist (retail store clerk) for an annual body check. What are the benefits of screening? Cancer screening is done to look for cancer in the very early stages, before it spreads and becomes harder to treat and before you would start to notice symptoms. Finding cancer early improves the chances of successful treatment. It ma (more content not included)... Normal [facility] UroVysion Fish and Urine Cyt o ([facility])on 12-10-2022 [facility] Method of Extraction Bladder Wash Normal [facility] Comment on above: Performed By: #### 1 [id number] ####[facility] [address] [place] [address] [facility] Number of Jars 1 Invalid Interpretation Code [facility] Comment on above: Performed By: #### 1 [id number] ####[facility] [address] [place] [address] [facility] Specimen Urine Normal [facility] Comment on above: Performed By: #### 1 [id number] ####[facility] [address] [place] [address] [facility] Type of Service Technical Only Normal [facility] Comment on above: Performed By: #### 1 [id number] ####[facility] [address] [place] [address] Urology Office/Clinic Noteon 09-19-2022 Urology Office/Clinic Note [...] urothelial carcinoma, low grade. Pt presented to [facility] ER on 09/15/22 due to catheter [...] and history for this patient from Dr. Jacobs. I have reviewed and verified the staff [...] order Local anesthesia. Prophy abx sent to [facility]. 2. 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 Pt presented to [facility] ER on 09/15/22 due to catheter [...] Katia Hall, URL [facility] [address] [place] [address]- Additional Instructions: schedule urocuff, 3 mos cysto/bt ck Patient Education Bladder Cancer I, Citlalli Rushing, personally scribed for Dr. Jacobs on 09/18/2022 15:34:51. . Documentation recorded by the scribe, Citlalli Rushing, accurately reflects the services(s) I performed and decisions made by me. Authenticated by Dr. Jacobs on 09/18/2022 15:37:21. Problem List/Past Medical History Ongoing Abdominal aortic aneurysm Acute kidney failure Bladder cancer Bladder mass Bladder stones COPD with emphysema Dementia Hydronephrosis Hydroureter Hyperkalemia Hyperlipidemia Hypertension Lesion of bladder Renal lesion Transient cerebral ischemic attack Urinary retention Historical No qualifying data Procedure/Surgical History TURBT - Transurethral resection of bladder tumor ( (more content not included)... [facility] Comment on above: Result Comment: Elec [...] What to do next Scheduled Follow-Up Appointments Friday. 2022 10:00 AM EDT Where: [facility] CULTURE URINEon 09-18-2022 CULTURE URINE Isolate 1 Pseudomonas aeruginosa >100,000 cfu/mL of ORGANISM 1 Pseudomonas aeruginosa ANTIBIOTIC M.I.C RX STATUS Piperacillin/Tazobactam <=4 S F Ceftazidime <=1 S F Imipenem 2 S F Amikacin <=2 S F Gentamicin 2 S F Tobramycin <=1 S F Ciprofloxacin <=0.25 S F Levofloxacin <=0.12 S F Normal [facility] Comment on above: Performed By: #### U RTPCR #### [facility] [address] [place], [place] [address] Dr. Karen Pierce Patient Educationon 09-19-19 Patient Education Oncology Bladder Cancer Bladder cancer [...] Follow these instructions at home: ? Take ttlz-rgw-xxhmrzn and prescription medicines only as told by [...] important. Where to find more information ? [place] [employer] Society (ACS): cancer.org ? National Cancer [place] (NCI): cancer.gov Contact a health care provider [...] have wi (more content not included)... Normal [facility] CALCULI, URINARYon 3 2,8 Dihydroxyadenine Normal [facility] Comment on above: Performed By: #### U A #### [facility] [address] [place] [address] Dr. Karen Pierce Ammonium Acid Urate Normal [facility] Comment on above: Performed By: #### U A #### [facility] [address] [place] [address] [address] Karen Pierce Bilirubin Ql (U) Normal [facility] Comment on above: Performed By: #### U A #### [facility] [address] [place] [address] [address] Karen Pierce Ca Oxalate Dihydrate Normal [facility] Comment on above: Performed By: #### U A #### [facility] [address] [place] [address] [address] Karen Pierce CaHPO4 (Brushite) Normal [facility] Comment on above: Performed By: #### U A #### [facility] [address] [address] [address] Karen Pierce Calcium Bilirubinate Normal [facility] Comment on above: Performed By: #### U A #### [facility] [address] [place] [address] [address] Karen Pierce Calcium Carbonate Normal [facility] Comment on above: Performed By: #### U A #### [facility] [address] [place] [address] [address] Karen Pierce Calcium Oxalate Monohydrate 100 % Normal [facility] Comment on above: Performed By: #### U A #### [facility] [address] [address] [address] Karen Pierce Calcium Palmitate Normal [facility] Comment on above: Performed By: #### U A #### [facility] [address] [address] [address] Karen Pierce Calcium Phosphate Normal [facility] Comment on above: Performed By: #### U A #### [facility] [address] [place] [address] [address] Karen Pierce Calcium Stearate [facility] Comment on above: Performed By: #### U A #### [facility] [address] [place] [address] [address] Karen Pierce Carbonate Apatite [facility] Comment on above: Performed By: #### U A #### [facility] [address] [address] [address] Karen Pierce Cellular Material [facility] Comment on above: Performed By: #### U A #### [facility] [address] [place] [address] [address] Karen Pierce Cholesterol [facility] Comment on above: Performed By: #### U A #### [facility] [address] [address] [address] Karen Pierce Color (U) Brown [facility] Comment on above: Performed By: #### U A #### [facility] [address] [address] [address] Karen Pierce Comment [facility] Comment on above: Performed By: #### U A #### [facility] [address] [address] [address] Karen Pierce Comment: Comment Normal [facility] Comment on above: Result Comment: Hyacinth rhodes questions regarding Calculi Analysis contact [facility] at: [phone]. Performed By: #### U A #### [facility] [address] [address] [address] Karen Pierce Composition Comment [facility] Comment on above: Result Comment: Perc entage (Represents the % composition) Performed By: #### U A #### [facility] [address] [place] [address] Dr. Karen Pierce Cystine [facility] Comment on above: Performed By: #### U A #### [facility] [address] [place] [address] Dr. Karen Pierce Disclaimer: Comment Normal [facility] Comment on above: Result Comment: This test was developed and its performance characteristics determined by [employer]. It has not been cleared or approved by the Food and Drug Administration. Performed By: #### U A #### [facility] [address] [place] [address] Dr. Karen Pierce Dried Blood [facility] Comment on above: Performed By: #### U A #### [facility] [address] [place] [address] Dr. Karen Pierce Drug or Metabolite [facility] Comment on above: Performed By: #### U A #### [facility] [address] [place] [address] Dr. Karen Pierce Hydroxyapatite [facility] Comment on above: Performed By: #### U A #### [facility] [address] [place] [address] Dr. Karen Pierce Mg NH4 PO4 (Struvite) [facility] Comment on above: Performed By: #### U A #### [facility] [address] [place] [address] Dr. Karen Pierce MgHPO4 (Newberyite) [facility] Comment on above: Performed By: #### U A #### [facility] [address] [place] [address] Dr. Karen Pierce Other component(s) Normal [facility] Comment on above: Performed By: #### U A #### [facility] [address] [place] [address] Dr. Karen Pierce PDF . [facility] Comment on above: Performed By: #### U A #### [facility] [address] [place] [address] Dr. Karen Pierce Photo Comment Normal [facility] Comment on above: Result Comment: Phot ograph will follow under a separate cover Performed By: #### U A #### [facility] [address] [place] [address] Dr. Karen Pierce Please note: Comment Normal [facility] Comment on above: Result Comment: Calc shirley report will follow via computer, mail or finishing range feeder delivery. Performed By: #### U A #### [facility] [address] [address] [address] Karen Pierce Size 5x5 [facility] Comment on above: Result Comment: Mult iple pieces received. Dimensions of the largest piece reported. Performed By: #### U A #### [facility] [address] [place] [address] Dr. Karen Pierce Sodium Acid Urate [facility] Comment on above: Performed By: #### U A #### [facility] [address] [place] [address] Dr. Karen Pierce Source Comment [facility] Comment on above: Result Comment: Urin evelin Bladder Performed By: #### U A #### [facility] [address] [place] [address] Dr. Karen Pierce Triamterene [facility] Comment on above: Performed By: #### U A #### [facility] [address] [place] [address] Dr. Karen Pierce Uric Acid [facility] Comment on above: Performed By: #### U A #### [facility] [address] [place] [address] Dr. Karen Pierce Uric Acid Dihydrate [facility] Comment on above: Performed By: #### U A #### [facility] [address] [place] [address] Dr. Karen Pierce Weight 158 mg [facility] Comment on above: Performed By: #### U A #### [facility] [address] [place] [address] Dr. Karen Pierce Xanthine [facility] Comment on above: Performed By: #### U A #### [facility] [address] [place] [address] Dr. Karen Pierce Pathology Noteon 09-17-2022 Pathology Note [id number]:127 Normal [facility] ER URINE PROFILEon 3 Bilirubin Ql (U) Negative Normal NEGATIVE [facility] Comment on above: Performed By: #### U MICRO, ERUR #### [facility] [address] [place] [address] Dr. Karen Pierce Clarity (U) CLEAR Normal CLEAR [facility] Comment on above: Performed By: #### U MICRO, ERUR #### [facility] [address] [place] [address] Dr. Karen Pierce Color (U) YELLOW Normal YELLOW [facility] Comment on above: Performed By: #### U MICRO, ERUR #### [facility] [address] [place] [address] Dr. Karen Pierce ERUAHD A micrscopic examina tion will be performed if indicated. Normal [facility] Comment on above: Performed By: #### U MICRO, ERUR #### [facility] [address] [place] [address] Dr. Karen Pierce Glucose Ql (U) Negative Normal NEGATIVE [facility] Comment on above: Performed By: #### U MICRO, ERUR #### [facility] [address] [address] [address] Karen Pierce Hemoglobin Ql (U) LARGE Abnormal NEGATIVE [facility] Comment on above: Performed By: #### U MICRO, ERUR #### [facility] [address] [address] [address] Karen Pierce Ketones Ql (U) Negative Normal NEGATIVE [facility] [facility] Comment on above: Performed By: #### U MICRO, ERUR #### [facility] [address] [place] [address] Dr. Karen Pierce LEUKOCYTES LARGE Abnormal NEGATIVE The [facility] Comment on above: Performed By: #### U MICRO, ERUR #### [facility] [address] [place] [address] Dr. Karen Pierce Nitrite Ql (U) Positive Abnormal NEGATIVE The [facility] Comment on above: Performed By: #### U MICRO, ERUR #### [facility] [address] [place] [address] Dr. Karen Pierce pH (U) 5.5 [pH] Normal 5-9 The [facility] Comment on above: Performed By: #### U MICRO, ERUR #### [facility] [address] [place] [address] Dr. Karen Pierce Protein (U) [Mass/Vol] 100 mg/dL Abnormal NEGAT RAJI/ TRACE The [facility] Comment on above: Performed By: #### U MICRO, ERUR #### [facility] [address] [place] [address] Dr. Karen Pierce SPEC GRAVITY 1.020 Normal 1.005-<=1. 025 The [facility] Comment on above: Performed By: #### U MICRO, ERUR #### [facility] [address] [place] [address] Dr. Karen Pierce UR MICRO IND INDICATED Normal The [facility] Comment on above: Performed By: #### U MICRO, ERUR #### [facility] [address] [place] [address] Dr. Karen Pierce Urobilinogen Qn (U) 1.0 {Tonio'U}/dL Normal 0.2 - 1. 0 The [facility] Comment on above: Performed By: #### U MICRO, ERUR #### [facility] [address] [place] [address] Dr. Karen Pierce URINE MICROSCOPIC ONLYon BACTERIA SMALL Abnormal NONE SEEN The [facility] Comment on above: Performed By: #### U MICRO, ERUR #### [facility] [address] [place] [address] Dr. Karen Pierce Bacteria identified Cx Nom (U) INDICATED Normal The [facility] Comment on above: Performed By: #### U MICRO, ERUR #### [facility] [address] [place] [address] Dr. Karen Pierce CAST NONE SEEN Normal NONE SEEN The [facility] Comment on above: Performed By: #### U MICRO, ERUR #### [facility] [address] [place] [address] Dr. Karen Pierce Crystals LM Nom (Urine sed) NONE SEEN Normal NONE SEEN [facility] Comment on above: Performed By: #### U MICRO, ERUR #### [facility] [address] [place] [address] Dr. Karen Pierce Epithelial cells LM Ql (Urine sed) NONE SEEN Normal NONE SEEN /RARE The [facility] Comment on above: Performed By: #### U MICRO, ERUR #### [facility] [address] [place] [address] Dr. Karen Pierce MUCOUS NONE SEEN Normal NONE SEEN [facility] Comment on above: Performed By: #### U MICRO, ERUR #### [facility] [address] [place] [address] Dr. Karen Pierce RBC (U) [#/Vol] /uL Abnormal 0-2 The [facility] Comment on above: Performed By: #### U MICRO, ERUR #### [facility] [address] [place] [address] Dr. Karen Pierce WBC 50-75 Abnormal NONE SEEN [facility] Comment on above: Performed By: #### U MICRO, ERUR #### [facility] [address] [place] [address] Dr. Karen Pierce Operative Reporton Operative Report [id number]:127 Normal [facility] Consultation Noteon 09-10-19 23 Consultation Note [id number]:127 Normal [facility] Consultation Note [id number]:127 Normal [facility] Consultation Note [id number]:127 Normal [facility] Lab Reportson 09-09-2022 Lab Reports [id number]:127 Normal [facility] RAD - MISCon 09-09-2022 RAD - MISC [id number]:127 Normal [facility] PTH INTACTon 09-05-2022 PTH, Intact 38 pg/mL Normal 15-65 [facility] Comment on above: Performed By: #### P THINT #### [facility] [address] [place] [address] Dr. Karen Pierce FERRITINon 09-04-2022 Ferritin [Mass/Vol] 49.0 ng/mL Normal 26.0-388.0 [facility] Comment on above: Performed By: #### U RTPCR #### [facility] [address] [place] [address] Dr. Karen Pierce IRON AND TIBCon 09-04-2022 % SATURATION 10.3 % Normal [facility] Comment on above: Performed By: #### U RTPCR #### [facility] [address] [place] [address] Dr. Karen Pierce Iron [Mass/Vol] 33.0 ug/dL Critically low 65.0-175.0 [facility] Comment on above: Performed By: #### U RTPCR #### [facility] [address] [place] [address] Dr. Karen Pierce TIBC DIRECT 319.0 ug/dL Normal 250.0-450. 0 [facility] Comment on above: Performed By: #### U RTPCR #### [facility] [address] [place] [address] Dr. Karen Pierce UA RANDOMon 09-04-2022 Bilirubin Ql (U) Negative Normal NEGATIVE [facility] Comment on above: Performed By: #### U A #### [facility] [address] [place] [address] Dr. Karen Pierce Clarity (U) CLEAR Normal CLEAR The [facility] Comment on above: Performed By: #### U A #### [facility] [address] [place] [address] Dr. Karen Pierce Color (U) LT. YELLOW Normal YELLOW The [facility] Comment on above: Performed By: #### U A #### [facility] [address] [place] [address] Dr. Karen Pierce Glucose Ql (U) Negative Normal NEGATIVE The [facility] Comment on above: Performed By: #### U A #### [facility] [address] [place] [address] Dr. Karen Pierce Hemoglobin Ql (U) MODERATE Abnormal NEGATIVE The [facility] Comment on above: Performed By: #### U A #### [facility] [address] [place] [address] Dr. Karen Pierce Ketones Ql (U) Negative Normal NEGATIVE [facility] Comment on above: Performed By: #### U A #### [facility] [address] [place] [address] Dr. Karen Pierce LEUKOCYTES LARGE Abnormal NEGATIVE The [facility] Comment on above: Performed By: #### U A #### [facility] [address] [place] [address] Dr. Karen Pierce Nitrite Ql (U) Positive Abnormal NEGATIVE [facility] Comment on above: Performed By: #### U A #### [facility] [address] [place] [address] Dr. Karen Pierce pH (U) 6.5 [pH] Normal 5-9 The [facility] Comment on above: Performed By: #### U A #### [facility] [address] [place] [address] Dr. Karen Pierce SPEC GRAVITY 1.015 Normal 1.005-<=1. 025 The [facility] Comment on above: Performed By: #### U A #### [facility] [address] [place] [address] Dr. Karen Pierce UA PROTEIN 30 mg/dl Abnormal NEGATIVE/ TRACE The [facility] Comment on above: Performed By: #### U A #### [facility] [address] [place] [address] Dr. Karen Pierce Urobilinogen Qn (U) 0.2 {Tonio'U}/dL Normal 0.2 - 1. 0 The [facility] Comment on above: Performed By: #### U A #### [facility] [address] [place] [address] Dr. Karen Pierce URINE T PROTEIN CREAT RATIOo n 09-04-2022 Protein (U) [Mass/Vol] 65.2 mg/dL Critically high <=12.0 [facility] Comment on above: Performed By: #### U RTPCR #### [facility] [address] [place] [address] Dr. Karen Pierce UR PROT CREAT RAT 0.76 Normal [facility] Comment on above: Performed By: #### U RTPCR #### [facility] [address] [place] [address] Dr. Karen Pierce URINE CREAT 85.95 mg/dL Normal 20.00-300. 00 [facility] Comment on above: Performed By: #### U RTPCR #### [facility] [address] [place] [address] Dr. Karen Pierce VIT B12 AND FOLATEon 023 Cobalamin (Vitamin B12) [Mass/Vol] 279.0 pg/mL Normal 193.0-986. 0 [facility] Comment on above: Performed By: #### U RTPCR #### [facility] [address] [place] [address] Dr. Karen Pierce FOLATE 17.80 ng/mL Normal 8.60-58.90 [facility] Comment on above: Performed By: #### U RTPCR #### [facility] [address] [place] [address] Dr. Karen Pierce VITAMIN D 25 OHon 09-04-2022 VIT D 25-OH 29.9 ng/mL Normal The [facility] Comment on above: Performed By: #### U RTPCR #### [facility] [address] [place] [address] Dr. Karen Pierce VIT D RANGES SEE BELOW Normal The [facility] Comment on above: Result Comment: <20 ng/mL Vit D deficient 20 - <30 ng/mL Vit D insufficient 30 - 100 ng/mL Vit D sufficient >100 ng/mL Potential Toxicity Performed By: #### U RTPCR #### [facility] [address] [place] [address] Dr. Karen Pierce CBC AUTO DIFFon 09-02-2022 BASO # 0.1 103/ul Normal 0.0-0.1 [facility] Comment on above: Performed By: #### C BC #### [facility] [address] [place] [address] Dr. Karen Pierce Basophils/100 WBC (Bld) 0.7 % Normal 0.2-2.0 [facility] Comment on above: Performed By: #### C BC #### [facility] [address] [place] [address] Dr. Karen Pierce EO # 0.2 103/ul Normal 0.0-0.7 [facility] Comment on above: Performed By: #### C BC #### [facility] [address] [place] [address] Dr. Karen Pierce Eosinophils/100 WBC (Bld) 2.6 % Normal 0.9-7.0 [facility] Comment on above: Performed By: #### C BC #### [facility] [address] [place] [address] Dr. Karen Pierce Erythrocyte distribution width (RBC) [Ratio] 13.8 % Normal 11.0-15.0 [facility] Comment on above: Performed By: #### C BC #### [facility] [address] [place] [address] Dr. Karen Pierce Hematocrit (Bld) [Volume fraction] 38.9 % Critically low 42.0-54.0 [facility] Comment on above: Performed By: #### C BC #### [facility] [address] [place] [address] Dr. Karen Pierce Hemoglobin (Bld) [Mass/Vol] 12.3 g/dL Critically low 14.0-18.0 [facility] Comment on above: Performed By: #### C BC #### [facility] [address] [place] [address] Dr. Karen Pierce IG # 0.01 10e3/ul Normal 0.00-0.03 [facility] Comment on above: Performed By: #### C BC #### [facility] [address] [place] [address] Dr. Karen Pierce IG % 0.1 % Normal 0.0-0.5 [facility] Comment on above: Performed By: #### C BC #### [facility] [address] [place] [address] Dr. Karen Pierce LYMPH # 1.9 103/ul Normal 1.2-3.8 [facility] Comment on above: Performed By: #### C BC #### [facility] [address] [place] [address] Dr. Karen Pierce Lymphocytes/100 WBC (Bld) 27.0 % Normal 20.5-60.0 [facility] Comment on above: Performed By: #### C BC #### [facility] [address] [place] [address] Dr. Karen Pierce MANUAL DIFF REQ NO Normal [facility] Comment on above: Performed By: #### C BC #### [facility] [address] [place] [address] Dr. Karen Pierce MCH (RBC) [Entitic mass] 27.8 pg Normal 25.9-34.0 [facility] Comment on above: Performed By: #### C BC #### [facility] [address] [place] [address] Dr. Karen Pierce MCHC (RBC) [Mass/Vol] 31.6 g/dL Normal 29.9-35.2 [facility] Comment on above: Performed By: #### C BC #### [facility] [address] [place] [address] Dr. Karen Pierce MCV (RBC) [Entitic vol] 87.8 fL Normal 80.0-94.0 [facility] Comment on above: Performed By: #### C BC #### [facility] [address] [place] [address] Dr. Karen Pierce MONO # 0.6 103/ul Normal 0.3-0.8 [facility] Comment on above: Performed By: #### C BC #### [facility] [address] [place] [address] Dr. Karen Pierce Monocytes/100 WBC (Bld) 8.8 % Normal 1.7-12.0 [facility] Comment on above: Performed By: #### C BC #### [facility] [address] [place] [address] Dr. Karen Pierce NEUT # 4.4 103/ul Normal 1.4-6.5 [facility] Comment on above: Performed By: #### C BC #### [facility] [address] [place] [address] Dr. Karen Pierce Neutrophils/100 WBC (Bld) 60.8 % Normal 43.0-75.0 [facility] Comment on above: Performed By: #### C BC #### [facility] [address] [place] [address] Dr. Karen Pierce Platelet mean volume (Bld) [Entitic vol] 9.9 fL Normal 9.5-13.5 [facility] Comment on above: Performed By: #### C BC #### [facility] [address] [place] [address] Dr. Karen Pierce PLT 181 103/ul Normal 150-450 [facility] Comment on above: Performed By: #### C BC #### [facility] [address] [place] [address] Dr. Karen Pierce RBC 4.43 106/ul Critically low 4.70-6.10 [facility] Comment on above: Performed By: #### C BC #### [facility] [address] [place] [address] Dr. Karen Pierce WBC 7.2 103/ul Normal 4.0-11.0 The [facility] Comment on above: Performed By: #### C BC #### [facility] [address] [place] [address] Dr. Karen Pierce MAGNESIUMon 09-02-2022 Magnesium [Mass/Vol] 2.2 mg/dL Normal 1.8-2.4 [facility] Comment on above: Performed By: #### U A #### [facility] [address] [address] [address] Karen Pierce PHOSPHORUSon 09-02-2022 Phosphate [Mass/Vol] 2.9 mg/dL Normal 2.6-4.7 [facility] Comment on above: Performed By: #### U A #### [facility] [address] [place] [address] Dr. Karen Pierce PROF 14(COMP METB)on 023 Albumin [Mass/Vol] 3.5 g/dL Normal 3.4-5.0 [facility] Comment on above: Performed By: #### P THINT #### [facility] [address] [place] [address] Dr. Karen Pierce Albumin/Globulin [Mass ratio] 1.0 {ratio} Normal [facility] Comment on above: Performed By: #### P THINT #### [facility] [address] [place] [address] Dr. Karen Pierce ALP [Catalytic activity/Vol] 86 U/L Normal 46-116 [facility] Comment on above: Performed By: #### P THINT #### [facility] [address] [place] [address] Dr. Karen Pierce ALT [Catalytic activity/Vol] 17 U/L Normal 16-63 [facility] Comment on above: Performed By: #### P THINT #### [facility] [address] [place] [address] Dr. Karen Pierce Anion gap [Moles/Vol] 13.0 mmol/L Normal [facility] Comment on above: Performed By: #### P THINT #### [facility] [address] [place] [address] Dr. Karen Pierce AST [Catalytic activity/Vol] 14 U/L Critically low 15-37 [facility] Comment on above: Performed By: #### P THINT #### [facility] [address] [place] [address] Dr. Karen Pierce Bilirubin [Mass/Vol] 0.3 mg/dL Normal 0.2-1.0 [facility] Comment on above: Performed By: #### P THINT #### [facility] [address] [address] [address] Karen Pierce CO2 [Moles/Vol] 27.6 mmol/L Normal 21.0-32.0 [facility] Comment on above: Performed By: #### P THINT #### [facility] [address] [place] [address] Dr. Karen Pierce Creatinine [Mass/Vol] 1.48 mg/dL Critically high 0.70-1.30 [facility] Comment on above: Performed By: #### P THINT #### [facility] [address] [place] [address] Dr. Karen Pierce EGFR-AF MONEGASQUE 56 mL/min/1.73m2 Critically low >=60 [facility] Comment on above: Performed By: #### P THINT #### [facility] [address] [place] [address] Dr. Karen Pierce EGFR-NON AF MONEGASQUE 46 mL/min/1.73m2 Critically low >=60 [facility] Comment on above: Performed By: #### P THINT #### [facility] [address] [place] [address] Dr. Karen Pierce Globulin (S) [Mass/Vol] 3.6 g/dL Normal T [facility] Comment on above: Performed By: #### P THINT #### [facility] [address] [place] [address] Dr. Karen Pierce Glucose [Mass/Vol] 105 mg/dL Normal 74-106 [facility] Comment on above: Performed By: #### P THINT #### [facility] [address] [place] [address] Dr. Kraen Pierce Protein [Mass/Vol] 7.1 g/dL Normal 6.4-8.2 [facility] Comment on above: Performed By: #### P THINT #### [facility] [address] [place] [address] Dr. Karen Pierce Sodium [Moles/Vol] 142 mmol/L Normal 136-145 [facility] Comment on above: Performed By: #### P THINT #### [facility] [address] [place] [address] Dr. Karen Pierce Urea nitrogen/Creatinine [Mass ratio] 16.2 mg/mg Normal [facility] Comment on above: Performed By: #### P THINT #### [facility] [address] [place] [address] Dr. Karen Pierce PROF CHEM 8 (BAS METB)on Anion gap [Moles/Vol] 11.1 mmol/L Normal [facility] Comment on above: Performed By: #### U A #### [facility] [address] [place] [address] Dr. Karen Pierce Calcium [Mass/Vol] 8.7 mg/dL Normal 8.5-10.1 [facility] Comment on above: Performed By: #### U A #### [facility] [address] [place] [address] Dr. Karen Pierce Performed By: #### P THINT #### [facility] [address] [place] [address] Dr. Karen Pierce Chloride [Moles/Vol] 106 mmol/L Normal 98-107 [facility] Comment on above: Performed By: #### U A #### [facility] [address] [place] [address] Dr. Karen Pierce Performed By: #### P THINT #### [facility] [address] [place] [address] Dr. Karen Pierce CO2 [Moles/Vol] 28.5 mmol/L Normal 21.0-32.0 [facility] Comment on above: Performed By: #### U A #### [facility] [address] [place] [address] Dr. Karen Pierce Creatinine [Mass/Vol] 1.44 mg/dL Critically high 0.70-1.30 [facility] Comment on above: Performed By: #### U A #### [facility] [address] [place] [address] Dr. Karen Pierce EGFR-AF MONEGASQUE 58 mL/min/1.73m2 Critically low >=60 [facility] Comment on above: Performed By: #### U A #### [facility] [address] [place] [address] Dr. Karen Pierce EGFR-NON AF MONEGASQUE 47 mL/min/1.73m2 Critically low >=60 [facility] Comment on above: Performed By: #### U A #### [facility] [address] [place] [address] Dr. Karen Pierce Glucose [Mass/Vol] 104 mg/dL Normal 74-106 [facility] Comment on above: Performed By: #### U A #### [facility] [address] [place] [address] Dr. Karen Pierce Potassium [Moles/Vol] 4.6 mmol/L Normal 3.5-5.1 [facility] Comment on above: Performed By: #### U A #### [facility] [address] [place] [address] Dr. Karen Pierce Performed By: #### P THINT #### [facility] [address] [place] [address] Dr. Karen Pierce Sodium [Moles/Vol] 141 mmol/L Normal 136-145 [facility] Comment on above: Performed By: #### U A #### [facility] [address] [place] [address] Dr. Karen Pierce Urea nitrogen [Mass/Vol] 24.0 mg/dL Critically high 7.0-18.0 [facility] Comment on above: Performed By: #### U A #### [facility] [address] [place] [address] Dr. Karen Pierce Performed By: #### P THINT #### [facility] [address] [place] [address] Dr. Karen Pierce Urea nitrogen/Creatinine [Mass ratio] 16.7 mg/mg Normal [facility] Comment on above: Performed By: #### U A #### [facility] [address] [place] [address] Dr. Karen Pierce PROTIMEon 09-02-2022 INR Coag (PPP) [Relative time] 1.01 {INR} Normal [facility] Comment on above: Performed By: #### P TT, PT #### [facility] [address] [place] [address] Dr. Karen Pierce INR GUIDELINES SEE BELOW Normal [facility] Comment on above: Result Comment: EMY RED INR: 2.0 - 3.0 CONDITIONS NOT LISTED BELOW 2.5 - 3.5 FOR PROSTHETIC HEART VALVE REPLACEMENT 2.5 - 3.5 RECURRENT THROMBOSIS Performed By: #### P TT, PT #### [facility] [address] [place] [address] Dr. Karen Pierce PT Coag (PPP) [Time] 10.7 s Normal 9.0-11.6 [facility] Comment on above: Performed By: #### P TT, PT #### [facility] [address] [place] [address] Dr. Karen Pierce PTTon 09-02-2022 aPTT Coag (Bld) [Time] 28.2 s Normal 22.3-36.2 [facility] Comment on above: Performed By: #### P TT, PT #### [facility] [address] [place] [address] Dr. Karen Pierce URIC ACID SERUMon 09-02-2022 Urate [Mass/Vol] 4.8 mg/dL Normal 3.5-7.2 [facility] Comment on above: Performed By: #### P THINT #### [facility] [address] [place] [address] Dr. Karen Pierce Consent for Procedure/Surger yon 08-27-2022 Consent for Procedure/Surgery [id number]:127 Normal [facility] Formson 08-27-2022 Forms [id number]:127 Normal [facility] CT angio abdomen pelvison CT angio abdomen pelvis [place] [place] [address] CT Scan Report Signed Patient: Alex Anderson MR#: [id number] [birth year] : 1945 Acct:[id number] Age/Sex: 76 / M ADM Date: 08/16/22 Loc: CT Room: Type: [facility] Attending Dr: Margarito Valentine MD Copies to: [...] Within normal limits. Bladder: There is a Villarreal catheter in the bladder lumen similar to [...] Corky Max M.D.08/16/2022 12:04 PM Dictation Location: [place] [address] Transcribed By: [facility] 08/16/22 1204 Dictated By: Corky Max II, MD 08/16/22 1154 Signed By: 08/16/22 1204 [facility] Creatinine (Bld) [Mass/Vol]O rdered By: Margarito Valentine on 08-16-2022 Creatinine [Mass/Vol] 1.5 mg/dL 0.6-1.3 [facility] Comment on above: ER/ESD physician is notified/shown all ISTAT results.Critical values may be confirmed by laboratory testing ifdeemed necessary by ER attending doctor. Creatinine (Bld) [Mass/Vol]O rdered By: Heather Omalley on 07-24-2022 Creatinine [Mass/Vol] 1.6 mg/dL 0.6-1.3 [facility] Comment on above: ER/ESD physician is notified/shown all ISTAT results.Critical values may be confirmed by laboratory testing ifdeemed necessary by ER attending doctor. ISTAT XRay CREon 07-24-2022 Creatinine [Mass/Vol] 1.6 mg/dL High 0.6-1.3 [facility] Comment on above: Result Comment: ER/E SD physician is notified/shown all ISTAT results. Critical values may be confirmed by laboratory testing if deemed necessary by ER attending doctor. Performed By: #### I SCRE #### [address] Point of Care testing , ISTAT GFR ( 51 [facility] Comment on above: Result Comment: GFR estimated reference range: According to KDOQI guidelines, <60 ml/min/1.73m2 is sufficient to diagnose a patient with chronic kidney disease. PERFORMED BY: [facility] [address] [place] [address] PATHOLOGIST [employer] OREN OWEN M.D. Performed By: #### I SCRE #### [facility] [address] Point of Care testing , ISTAT GFR (Non- Am 42 Normal [facility] Comment on above: Performed By: #### I SCRE #### [facility] [address] Point of Care testing , No Panel InformationOrdered By: Heather Omalley on 07-24-2022 POC Estimated GFR 51 [facility] Comment on above: GFR estimated refere nce range: According to KDOQI guidelines, <60 ml/min/1.73m2 is sufficient to diagnose a patient with chronic kidney disease. POC Estimated GFR Non- Amer 42 [facility] Blood activated clotting lacho e by coagulation assayOrdered By: Margarito Valentine on 07-02-2022 ACT Coag (Bld) 215 s 90-139 [facility] Comment on above: Reference Range: 90- 139 (Non-heparinized) Basophils Auto (Bld) [#/Vol] Ordered By: Margarito Valentine on 06-21-2022 Basophils (Bld) [#/Vol] 0.1 10*3/uL 0.0-0.2 [facility] Basophils/100 WBC Auto (Bld) Ordered By: Margarito Valentine on 06-21-2022 Basophils/100 WBC (Bld) 0.9 % . [facility] Creatinine and Glomerular fi ltration rate.predicted panel (S/P/Bld)Ordered By: Margarito Valentine on 06-21-2022 Creatinine [Mass/Vol] 1.24 mg/dL 0.64-1.27 [facility] Eosinophils Auto (Bld) [#/Vo l]Ordered By: Margarito Valentine on 06-21-2022 Eosinophils (Bld) [#/Vol] 0.2 10*3/uL 0.0-0.45 [facility] Eosinophils/100 WBC Auto (Bl d)Ordered By: Margarito Valentine on 06-21-2022 Eosinophils/100 WBC (Bld) 2.5 % . [facility] Erythrocyte distribution wid th Auto (RBC) [Ratio]Ordered By: Margarito Valentine on 06-21-2022 Erythrocyte distribution width (RBC) [Ratio] 18.0 % 12.0-14.8 [facility] Estimated glomerular filtrat ion rate (GFR) non- AmericanOrdered By: Margarito Valentine on 06-21-2022 GFR/1.73 sq M.predicted among non-blacks MDRD (S/P/Bld) [Vol rate/Area] 56 mL/Min [facility] Hematocrit Auto (Bld) [Volum e fraction]Ordered By: Margarito Valentine on 06-21-2022 Hematocrit (Bld) [Volume fraction] 37.7 % 38.8-50.0 [facility] Hemoglobin [Mass/volume] in BloodOrdered By: Margarito Valentine on 06-21-2022 Hemoglobin (Bld) [Mass/Vol] 12.3 g/dL 13.0-17.0 [facility] Leukocytes [#/volume] correc phil for nucleated erythrocytes in Blood by Automated counOrdered By: Margarito Valentine on 06-21-2022 WBC corrected for nucl RBC Auto (Bld) [#/Vol] 7.1 10*3/uL 4.1-10.5 [facility] Lymphocytes Auto (Bld) [#/Vo l]Ordered By: Margarito Valentine on 06-21-2022 Lymphocytes (Bld) [#/Vol] 1.3 10*3/uL 1.00-4.8 [facility] Lymphocytes/100 WBC Auto (Bl d)Ordered By: Margarito Valentine on 06-21-2022 Lymphocytes/100 WBC (Bld) 18.7 % . [facility] MCH Auto (RBC) [Entitic mass ]Ordered By: Margarito Valentine on 06-21-2022 MCH (RBC) [Entitic mass] 28.2 pg 27.5-35.2 [facility] MCHC Auto (RBC) [Mass/Vol]Or dered By: Margarito Valentine on 06-21-2022 MCHC (RBC) [Mass/Vol] 32.6 g/dL 32.5-35.6 [facility] MCV Auto (RBC) [Entitic vol] Ordered By: Margarito Valentine on 06-21-2022 MCV (RBC) [Entitic vol] 86.5 fL 83.5-101 [facility] Monocytes Auto (Bld) [#/Vol] Ordered By: Margarito Valentine on 06-21-2022 Monocytes (Bld) [#/Vol] 0.7 10*3/uL 0.0-0.8 [facility] Monocytes/100 WBC Auto (Bld) Ordered By: Margarito Valentine on 06-21-2022 Monocytes/100 WBC (Bld) 10.3 % . [facility] Neutrophils Auto (Bld) [#/Vo l]Ordered By: Margarito Valentine on 06-21-2022 Neutrophils (Bld) [#/Vol] 4.8 10*3/uL 1.8-7.7 [facility] Neutrophils/100 WBC Auto (Bl d)Ordered By: Margarito Valentine on 06-21-2022 Neutrophils/100 WBC (Bld) 67.6 % . [facility] No Panel InformationOrdered By: Margarito Valentine on 06-21-2022 Estimated GFR () > 60 mL/Min [facility] Comment on above: GFR estimated refere nce range: According to KDOQI guidelines, <60 ml/min/1.73m2 is sufficient to diagnose a patient with chronic kidney disease. Pharmacy Creatinine Clearance (Chem N/A [facility] Nucleated erythrocytes [Pres ence] in Blood by Automated countOrdered By: Margarito Valentine on 06-21-2022 Nucleated RBC Auto Ql (Bld) 0.1 /100{WBC} 0-0.5 [facility] Platelet mean volume Auto (B ld) [Entitic vol]Ordered By: Margarito Valentine on 06-21-2022 Platelet mean volume (Bld) [Entitic vol] 8.2 fL 6.6-10.1 [facility] Platelets Auto (Bld) [#/Vol] Ordered By: Margarito Valentine on 06-21-2022 Platelets (Bld) [#/Vol] 149 10*3/uL 150-450 [facility] RBC Auto (Bld) [#/Vol]Ordere d By: Margarito Valentine on 06-21-2022 RBC (Bld) [#/Vol] 4.36 10*6/uL 3.90-5.60 [facility] Serum or plasma anion gap de terminationOrdered By: Margarito Valentine on 06-21-2022 Anion gap [Moles/Vol] 10.8 mmol/L 6.0-15.0 [facility] Serum or plasma calcium elan urement (mass/volume)Ordered By: Margarito Valentine on 06-21-2022 Calcium [Mass/Vol] 8.8 mg/dL 8.2-10.2 [facility] Serum or plasma chloride herb surement (moles/volume)Ordered By: Margarito Valentine on 06-21-2022 Chloride [Moles/Vol] 107 mmol/L 95-114 [facility] Serum or plasma glucose elan urement (mass/volume)Ordered By: Margarito Valentine on 06-21-2022 Glucose [Mass/Vol] 103 mg/dL 70-100 [facility] Comment on above: ADA recommended refe rence rangeRandom Glucose Reference Range is dependent on time and content of last meal. Glucose of more than 200 mg/dL in a nonstressed, ambulatory subject supports the diagnosis of Diabetes Mellitus. Serum or plasma potassium me asurement (moles/volume)Ordered By: Margarito Valentine on 06-21-2022 Potassium [Moles/Vol] 4.2 mmol/L 3.5-5.1 [facility] Serum or plasma sodium measu rement (moles/volume)Ordered By: Margarito Valentine on 06-21-2022 Sodium [Moles/Vol] 138 mmol/L 136-146 [facility] Serum or plasma total carbon dioxide measurement (moles/volume)Ordered By: Margarito Valentine on 06-21-2022 CO2 [Moles/Vol] 24.4 mmol/L 22.0-30.0 [facility] Serum or plasma urea nitroge n measurement (mass/volume)Ordered By: Margarito Valentine on 06-21-2022 Urea nitrogen [Mass/Vol] 18 mg/dL 9-23 [facility] WBC Auto (Bld) [#/Vol]Ordere d By: Margarito Valentine on 06-21-2022 WBC (Bld) [#/Vol] 7.1 10*3/uL 4.1-10.5 [facility] Office Visit (Cardiology)on 06-03-2022 Follow-up visit Diagnoses/Problems [...] Complaint ALEX ANDERSON is being [place] [facility] [place]. 76-year-old white male who I saw [...] Signs Recorded: 03Jun2022 03:38PM Heart Rate71, Apical Ankpjxup226, LUE, Sitting Belrwviqp34, LUE, Sitting Height6 ft 2 in Uhiyxe095 lb BMI Hgaztmktzp94.45 kg/m2 BSA Calculated2.2 Tobacco Useb) No PHQ-2 [...] , regular (more content not included)... Normal [facility] Tobacco Screening.on 023 Adult depression screening assessment No [facility] [employer] 250 DO Work Phone: Fall risk assessment a) No falls within the last year [facility] [employer] 250 DO Work Phone: Tobacco use status CPHS b) No [facility] [employer] 250 DO Work Phone: Basophils Auto (Bld) [#/Vol] Ordered By: Bernabe Cr on 05-22-2022 Basophils (Bld) [#/Vol] 0.1 10*3/uL 0.0-0.2 [facility] Basophils/100 WBC Auto (Bld) Ordered By: Bernabe Cr on 05-22-2022 Basophils/100 WBC (Bld) 1.2 % . [facility] Creatinine and Glomerular fi ltration rate.predicted panel (S/P/Bld)Ordered By: Bernabe Cr on 05-22-2022 Creatinine [Mass/Vol] 1.78 mg/dL 0.64-1.27 [facility] Eosinophils Auto (Bld) [#/Vo l]Ordered By: Bernabe Cr on 05-22-2022 Eosinophils (Bld) [#/Vol] 0.3 10*3/uL 0.0-0.45 [facility] Eosinophils/100 WBC Auto (Bl d)Ordered By: Bernabe Cr on 05-22-2022 Eosinophils/100 WBC (Bld) 3.6 % . [facility] Erythrocyte distribution wid th Auto (RBC) [Ratio]Ordered By: Bernabe Cr on 05-22-2022 Erythrocyte distribution width (RBC) [Ratio] 15.3 % 12.0-14.8 [facility] Estimated glomerular filtrat ion rate (GFR) non- AmericanOrdered By: Bernabe Cr on 05-22-2022 GFR/1.73 sq M.predicted among non-blacks MDRD (S/P/Bld) [Vol rate/Area] 37 mL/Min [facility] Hematocrit Auto (Bld) [Volum e fraction]Ordered By: Bernabe Cr on 05-22-2022 Hematocrit (Bld) [Volume fraction] 36.2 % 38.8-50.0 [facility] Hemoglobin [Mass/volume] in BloodOrdered By: Bernabe Cr on 05-22-2022 Hemoglobin (Bld) [Mass/Vol] 11.7 g/dL 13.0-17.0 [facility] Leukocytes [#/volume] correc phil for nucleated erythrocytes in Blood by Automated counOrdered By: Bernabe Cr on 05-22-2022 WBC corrected for nucl RBC Auto (Bld) [#/Vol] 8.1 10*3/uL 4.1-10.5 [facility] Lymphocytes Auto (Bld) [#/Vo l]Ordered By: Bernabe Cr on 05-22-2022 Lymphocytes (Bld) [#/Vol] 1.4 10*3/uL 1.00-4.8 [facility] Lymphocytes/100 WBC Auto (Bl d)Ordered By: Bernabe Cr on 05-22-2022 Lymphocytes/100 WBC (Bld) 16.9 % . [facility] MCH Auto (RBC) [Entitic mass ]Ordered By: Bernabe Cr on 05-22-2022 MCH (RBC) [Entitic mass] 27.4 pg 27.5-35.2 [facility] MCHC Auto (RBC) [Mass/Vol]Or dered By: Bernabe Cr on 05-22-2022 MCHC (RBC) [Mass/Vol] 32.5 g/dL 32.5-35.6 [facility] MCV Auto (RBC) [Entitic vol] Ordered By: Bernabe Cr on 05-22-2022 MCV (RBC) [Entitic vol] 84.3 fL 83.5-101 [facility] Monocytes Auto (Bld) [#/Vol] Ordered By: Bernabe Cr on 05-22-2022 Monocytes (Bld) [#/Vol] 0.8 10*3/uL 0.0-0.8 [facility] Monocytes/100 WBC Auto (Bld) Ordered By: Bernabe Cr on 05-22-2022 Monocytes/100 WBC (Bld) 10.1 % . [facility] Neutrophils Auto (Bld) [#/Vo l]Ordered By: Bernabe Cr on 05-22-2022 Neutrophils (Bld) [#/Vol] 5.6 10*3/uL 1.8-7.7 [facility] Neutrophils/100 WBC Auto (Bl d)Ordered By: Bernabe Cr on 05-22-2022 Neutrophils/100 WBC (Bld) 68.2 % . [facility] No Panel InformationOrdered By: Bernabe Cr on 05-22-2022 Estimated GFR () 45 mL/Min [facility] Comment on above: GFR estimated refere nce range: According to KDOQI guidelines, <60 ml/min/1.73m2 is sufficient to diagnose a patient with chronic kidney disease. Pharmacy Creatinine Clearance (Chem 39.77 [facility] Nucleated erythrocytes [Pres ence] in Blood by Automated countOrdered By: Bernabe Cr on 05-22-2022 Nucleated RBC Auto Ql (Bld) 0.1 /100{WBC} 0-0.5 [facility] Platelet mean volume Auto (B ld) [Entitic vol]Ordered By: Bernabe Cr on 05-22-2022 Platelet mean volume (Bld) [Entitic vol] 8.7 fL 6.6-10.1 [facility] Platelets Auto (Bld) [#/Vol] Ordered By: Bernbae Cr on 05-22-2022 Platelets (Bld) [#/Vol] 198 10*3/uL 150-450 [facility] RBC Auto (Bld) [#/Vol]Ordere d By: Bernabe Cr on 05-22-2022 RBC (Bld) [#/Vol] 4.29 10*6/uL 3.90-5.60 [facility] Serum or plasma anion gap de terminationOrdered By: Bernabe Cr on 05-22-2022 Anion gap [Moles/Vol] 13.3 mmol/L 6.0-15.0 [facility] Serum or plasma calcium elan urement (mass/volume)Ordered By: Bernabe Cr on 05-22-2022 Calcium [Mass/Vol] 8.3 mg/dL 8.2-10.2 [facility] Serum or plasma chloride herb surement (moles/volume)Ordered By: Bernabe Cr on 05-22-2022 Chloride [Moles/Vol] 104 mmol/L 95-114 [facility] Serum or plasma glucose elan urement (mass/volume)Ordered By: Bernabe Cr on 05-22-2022 Glucose [Mass/Vol] 180 mg/dL 70-100 [facility] Comment on above: ADA recommended refe rence rangeRandom Glucose Reference Range is dependent on time and content of last meal. Glucose of more than 200 mg/dL in a nonstressed, ambulatory subject supports the diagnosis of Diabetes Mellitus. Serum or plasma potassium me asurement (moles/volume)Ordered By: Bernabe Cr on 05-22-2022 Potassium [Moles/Vol] 3.3 mmol/L 3.5-5.1 [facility] Serum or plasma sodium measu rement (moles/volume)Ordered By: Bernabe Cr on 05-22-2022 Sodium [Moles/Vol] 137 mmol/L 136-146 [facility] Serum or plasma total carbon dioxide measurement (moles/volume)Ordered By: Bernabe Cr on 05-22-2022 CO2 [Moles/Vol] 23.0 mmol/L 22.0-30.0 [facility] Serum or plasma urea nitroge n measurement (mass/volume)Ordered By: Bernabe Cr on 05-22-2022 Urea nitrogen [Mass/Vol] 21 mg/dL 02-15 [facility] WBC Auto (Bld) [#/Vol]Ordere d By: Bernabe Cr on 05-22-2022 WBC (Bld) [#/Vol] 8.1 10*3/uL 4.1-10.5 [facility] No Panel InformationOrdered By: Bernabe Cr on 05-21-2022 25-Hydroxy Vitamin D Total 15.9 ng/mL 30-100 [facility] Comment on above: VITAMIN D STATUS 25( [place])VITAMIN D RANGE (ng/mL) Deficient <20 Insufficient 20 to <30Sufficient 30 to 100Reference: Sixto MF,Federico MATA, Palomo LESLIE, et al. Evaluation,treatment, and prevention of vitamin D deficiency; an Endocrine Society clinical practice guideline. JCEM. 2010; 96(7):1911-30. Vitamin C level 0.2 mg/dL 0.4-2.0 [facility] Comment on above: This test was devdayannao tacos and its performance characteristicsdetermined by [facility]. It has not been cleared orapproved by the Food and Drug Administration.Vitamin C deficiency is generally defined as plasma orserum concentrations less than 0.2 mg/dL and levels between0.2 and 0.4 mg/dL are considered low.Performed at: [address] [id number] Director: Mamadou Rodriguez MD, Phone: [phone] Folate [Mass/volume] in Seru m or PlasmaOrdered By: Taz Barnes on 05-20-2022 Folate [Mass/Vol] 5.5 ng/mL >5.9 [facility] Comment on above: Folate reference ran ge: >5.9 ng/mlThe WHO technical consultation on folate and vitamin [id number] has determined that folate concentrations lessthan 4 ng/ml are considered deficient. Laboratory - Chemistry and C hemistry - challengeOrdered By: Taz Barnes on 05-20-2022 Cobalamin (Vitamin B12) [Mass/Vol] 169 pg/mL 180-914 [facility] No Panel InformationOrdered By: Taz Barnes on 05-20-2022 Ova and Parasite Result 1 [facility] Ova and Parasite Result 1 [facility] Ova or parasites identificat ionOrdered By: Taz Barnes on 05-20-2022 Ova and parasites identified LM Nom (Unsp spec) [facility] Ova and parasites identified LM Nom (Unsp spec) [facility] Laboratory - Chemistry and C hemistry - challengeOrdered By: Janice Gonzalez on 05-19-2022 Magnesium [Mass/Vol] 1.7 mg/dL 1.6-2.6 [facility] Automated erythrocytes count in urine sediment (number/area)Ordered By: Taz Barnes on 05-18-2022 RBC Auto (Urine sed) [#/Area] 50-100 [HPF] 0-4 [facility] Automated leukocytes count i n urine sediment (number/area)Ordered By: Taz Barnes on 05-18-2022 WBC Auto (Urine sed) [#/Area] Innumerable [HPF] 0-4 [facility] Automated urine hyaline cast s count (number/volume)Ordered By: Taz Barnes on 05-18-2022 Hyaline casts Auto (U) [#/Vol] None seen [LPF] 0-1 [facility] Bilirubin Test strip Ql (U)O rdered By: Taz Barnes on 05-18-2022 Bilirubin Ql (U) Negative Negative [facility] Casts typing in urine sedime nt by light microscopyOrdered By: Taz Barnes on 05-18-2022 Casts LM Nom (Urine sed) None seen [LPF] None Seen [facility] Color Auto (U)Ordered By: Starr Barnes on 05-18-2022 Color (U) Yellow Yellow [facility] Ketones Auto test strip (U) [Mass/Vol]Ordered By: Taz Barnes on 05-18-2022 Ketones (U) [Mass/Vol] Negative Negative Fi [facility] Nitrite Test strip Ql (U)Ord ered By: Taz Barnes on 05-18-2022 Nitrite Ql (U) Negative Negative [facility] Protein Auto test strip (U) [Mass/Vol]Ordered By: Taz Barnes on 05-18-2022 Protein (U) [Mass/Vol] 100 mg/dL Negative [facility] Specific gravity Auto test s trip (U) [Rel density]Ordered By: Taz Barnes on 05-18-2022 Specific gravity (U) [Rel density] 1.010 1.001-1.03 0 [facility] Squamous epithelial cells de tection in urine sediment by light microscopyOrdered By: Taz Barnes on 05-18-2022 Epithelial cells.squamous LM Ql (Urine sed) 1-2 [HPF] 0-2 [facility] Urine bacteria detection by automated methodOrdered By: Taz Barnes on 05-18-2022 Bacteria Auto Ql (U) None seen None Seen [facility] Urine clarity by refractomet ry automatedOrdered By: Taz Barnes on 05-18-2022 Clarity Refractometry automated (U) Turbid Clear [facility] Urine culture routineOrdered By: Taz Barnes on 05-18-2022 Bacteria identified Cx Nom (U) No Growth 2 Days [facility] Bacteria identified Cx Nom (U) No Growth 2 Days [facility] Urine glucose measurement by automated test strip (mass/volume)Ordered By: Taz Barnes on 05-18-2022 Glucose Auto test strip (U) [Mass/Vol] Normal mg/dL Normal [facility] Urine hemoglobin detection b y automated test stripOrdered By: Taz Barnes on 05-18-2022 Hemoglobin Auto test strip Ql (U) 2+ Negative [facility] Urine leukocyte esterase det ection by automated test stripOrdered By: Tza Barnes on 05-18-2022 Leukocyte esterase Auto test strip Ql (U) 4+ Negative [facility] Urobilinogen Auto test strip (U) [Mass/Vol]Ordered By: Taz Barnes on 05-18-2022 Urobilinogen (U) [Mass/Vol] Normal mg/dL Normal [facility] Yeast detection in urine sed iment by light microscopyOrdered By: Taz Barnes on 05-18-2022 Yeast LM Ql (Urine sed) None seen [HPF] None Se en [facility] pH Auto test strip (U)Ordere d By: Taz Barnes on 05-18-2022 pH (U) 7.5 [pH] 5.0-9.0 [facility] Activated partial thrombopla stin time (aPTT) in platelet poor plasma by coagulation aOrdered By: Taz Barnes on 05-16-2022 aPTT Coag (PPP) [Time] 29.5 s 25.1-36.5 [facility] Body fluid albumin measureme nt (mass/volume)Ordered By: Taz Barnes on 05-16-2022 Albumin (Body fld) [Mass/Vol] 2.9 g/dL 3.2-5.5 [facility] CBC AUTO DIFFon 05-16-2022 BASO # 0.0 103/ul Normal 0.0-0.1 [facility] Comment on above: Performed By: #### C BC #### [facility] [address] [address] [address] Karen Pierce Basophils/100 WBC (Bld) 0.3 % Normal 0.2-2.0 [facility] Comment on above: Performed By: #### C BC #### [facility] [address] [address] [address] Karen Pierce EO # 0.1 103/ul Normal 0.0-0.7 [facility] Comment on above: Performed By: #### C BC #### [facility] [address] [address] [address] Karen Pierce Eosinophils/100 WBC (Bld) 0.7 % Critically low 0.9-7.0 [facility] Comment on above: Performed By: #### C BC #### [facility] [address] [place] [address] Dr. Karen Pierce Erythrocyte distribution width (RBC) [Ratio] 14.8 % Normal 11.0-15.0 [facility] Comment on above: Performed By: #### C BC #### [facility] [address] [place] [address] Dr. Karen Pierce Hematocrit (Bld) [Volume fraction] 39.4 % Critically low 42.0-54.0 [facility] Comment on above: Performed By: #### C BC #### [facility] [address] [place] [address] Dr. Karen Pierce Hemoglobin (Bld) [Mass/Vol] 12.6 g/dL Critically low 14.0-18.0 [facility] Comment on above: Performed By: #### C BC #### [facility] [address] [place] [address] Dr. Karen Pierce IG # 0.04 10e3/ul Critically high 0.00-0.03 [facility] Comment on above: Performed By: #### C BC #### [facility] [address] [place] [address] Dr. Karen Pierce IG % 0.4 % Normal 0.0-0.5 [facility] Comment on above: Performed By: #### C BC #### [facility] [address] [place] [address] Dr. Karen Pierce LYMPH # 1.2 103/ul Normal 1.2-3.8 [facility] Comment on above: Performed By: #### C BC #### [facility] [address] [place] [address] Dr. Karen Pierce Lymphocytes/100 WBC (Bld) 11.8 % Critically low 20.5-60.0 [facility] Comment on above: Performed By: #### C BC #### [facility] [address] [place] [address] Dr. Karen Pierce MANUAL DIFF REQ NO Normal [facility] Comment on above: Performed By: #### C BC #### [facility] [address] [address] [address] Karen Pierce MCH (RBC) [Entitic mass] 27.5 pg Normal 25.9-34.0 [facility] Comment on above: Performed By: #### C BC #### [facility] [address] [place] [address] Dr. Karen Pierce MCHC (RBC) [Mass/Vol] 32.0 g/dL Normal 29.9-35.2 [facility] Comment on above: Performed By: #### C BC #### [facility] [address] [place] [address] Dr. Karen Pierce MCV (RBC) [Entitic vol] 86.0 fL Normal 80.0-94.0 [facility] Comment on above: Performed By: #### C BC #### [facility] [address] [place] [address] Dr. Karen Pierce MONO # 1.4 103/ul Critically high 0.3-0.8 [facility] Comment on above: Performed By: #### C BC #### [facility] [address] [place] [address] Dr. Karen Pierce Monocytes/100 WBC (Bld) 13.8 % Critically high 1.7-12. 0 [facility] Comment on above: Performed By: #### C BC #### [facility] [address] [place] [address] Dr. Karen Pierce NEUT # 7.6 103/ul Critically high 1.4-6.5 [facility] Comment on above: Performed By: #### C BC #### [facility] [address] [place] [address] Dr. Karen Pierce Neutrophils/100 WBC (Bld) 73.0 % Normal 43.0-75.0 [facility] Comment on above: Performed By: #### C BC #### [facility] [address] [place] [address] Dr. Karen Pierce Platelet mean volume (Bld) [Entitic vol] 10.6 fL Normal 9.5-13.5 The [facility] Comment on above: Performed By: #### C BC #### [facility] [address], [place] [address] Dr. Karen Pierce PLT 193 103/ul Normal 150-450 The [facility] Comment on above: Performed By: #### C BC #### [facility] [address], [place] [address] Dr. Karen Pierce RBC 4.58 106/ul Critically low 4.70-6.10 The [facility] Comment on above: Performed By: #### C BC #### [facility] [address] [place], [place] [address] Dr. Karen Pierce WBC 10.4 103/ul Normal 4.0-11.0 [facility] Comment on above: Performed By: #### C BC #### [facility] [address], [place] [address] ABD/PELVIS WO CONon [...] LORENZO SCHERER Date: 2022-05-16 09:21 Normal The [facility] CULTURE URINEon 05-16-2022 CULTURE URINE Culture Observations : MODERATE GROWTH OF MIXED SKIN JAS. NO POTENTIAL PATHOGENS SEEN. Normal The [facility] Comment on above: Performed By: #### U RTPCR #### [facility] [address] [place] [address] Dr. Karen Pierce [facility] SARS-CoV-2 (COVID-19) RNA KARI+probe Ql (Unsp spec) Not detected Normal NOT DETECTED The [facility] Comment on above: Result Comment: When diagnostic [...] for this test is supported by the [place] of [employer] and Human Service's declaration that [...] used). Performed By: #### U A #### [facility] [address] [place] [address] Dr. Karen Pierce Creatinine [Mass/volume] in UrineOrdered By: Taz Barnes on 05-16-2022 Creatinine (U) [Mass/Vol] 68.1 mg/dL [facility] Comment on above: No reference range e stablished ER URINE PROFILEon Bilirubin Ql (U) Negative Normal NEGATIVE The [facility] Comment on above: Performed By: #### U RTPCR #### [facility] [address] [place] [address] Dr. Karen Pierce Clarity (U) CLEAR Normal CLEAR The [facility] Comment on above: Performed By: #### U RTPCR #### [facility] [address] [place] [address] Dr. Karen Pierce Color (U) YELLOW Normal YELLOW The [facility] Comment on above: Performed By: #### U RTPCR #### [facility] [address] [place] [address] Dr. Karen Pierce ERUAHD A micrscopic examina tion will be performed if indicated. Normal The [facility] Comment on above: Performed By: #### U RTPCR #### [facility] [address] [place] [address] Dr. Karen Pierce Glucose Ql (U) Negative Normal NEGATIVE The [facility] Comment on above: Performed By: #### U RTPCR #### [facility] [address] [place] [address] Dr. Karen Pierce Hemoglobin Ql (U) MODERATE Abnormal NEGATIVE The [facility] Comment on above: Performed By: #### U RTPCR #### [facility] [address] [place] [address] Dr. Karen Pierce Ketones Ql (U) Negative Normal NEGATIVE [facility] Comment on above: Performed By: #### U RTPCR #### [facility] [address] [place] [address] Dr. Karen Pierce LEUKOCYTES LARGE Abnormal NEGATIVE [facility] Comment on above: Performed By: #### U RTPCR #### [facility] [address] [place] [address] Dr. Karen Pierce Nitrite Ql (U) Negative Normal NEGATIVE [facility] Comment on above: Performed By: #### U RTPCR #### [facility] [address] [place] [address] Dr. Karen Pierce pH (U) 5.5 [pH] Normal 5-9 [facility] Comment on above: Performed By: #### U RTPCR #### [facility] [address] [place] [address] Dr. Karen Pierce SPEC GRAVITY <=1.005 Abnormal 1.005-<=1. 025 [facility] Comment on above: Performed By: #### U RTPCR #### [facility] [address] [place] [address] Dr. Karen Pierce UA PROTEIN Negative Normal NEGATIVE/ TRACE The [facility] Comment on above: Performed By: #### U RTPCR #### [facility] [address] [place] [address] Dr. Karen Pierce UR MICRO IND INDICATED Normal The [facility] Comment on above: Performed By: #### U RTPCR #### [facility] [address] [place] [address] Dr. Karen Pierce Urobilinogen Qn (U) 0.2 {Tonio'U}/dL Normal 0.2 - 1. 0 [facility] Comment on above: Performed By: #### U RTPCR #### [facility] [address] [place] [address] Dr. Karen Pierce Globulin Calc (S) [Mass/Vol] Ordered By: Taz Barnes on 05-16-2022 Globulin (S) [Mass/Vol] 3.5 g/dL [facility] - CoagulationOrde red By: Taz Barnes on 05-16-2022 PT Coag (PPP) [Time] 14.2 s 9.0-12.9 [facility] PROF 14(COMP METB)on 022 Albumin [Mass/Vol] 3.1 g/dL Critically low 3.4-5.0 [facility] Comment on above: Performed By: #### U RTPCR #### [facility] [address] [place] [address] Dr. Karen Pierce Albumin/Globulin [Mass ratio] 0.7 {ratio} Normal [facility] Comment on above: Performed By: #### U RTPCR #### [facility] [address] [place] [address] Dr. Karen Pierce ALP [Catalytic activity/Vol] 96 U/L Normal 46-116 [facility] Comment on above: Performed By: #### U RTPCR #### [facility] [address] [place] [address] Dr. Karen Pierce ALT [Catalytic activity/Vol] 46 U/L Normal 16-63 [facility] Comment on above: Performed By: #### U RTPCR #### [facility] [address] [place] [address] Dr. Karen Pierce Anion gap [Moles/Vol] 19.7 mmol/L Normal [facility] Comment on above: Performed By: #### U RTPCR #### [facility] [address] [place] [address] Dr. Karen Pierce AST [Catalytic activity/Vol] 21 U/L Normal 15-37 [facility] Comment on above: Performed By: #### U RTPCR #### [facility] [address] [place] [address] Dr. Karen Pierce Bilirubin [Mass/Vol] 0.3 mg/dL Normal 0.2-1.0 [facility] Comment on above: Performed By: #### U RTPCR #### [facility] [address] [place] [address] Dr. Karen Pierce Calcium [Mass/Vol] 8.9 mg/dL Normal 8.5-10.1 [facility] Comment on above: Performed By: #### U RTPCR #### [facility] [address] [place] [address] Dr. Karen Pierce Chloride [Moles/Vol] 101 mmol/L Normal 98-107 [facility] Comment on above: Performed By: #### U RTPCR #### [facility] [address] [place] [address] Dr. Karen Pierce CO2 [Moles/Vol] 18.3 mmol/L Critically low 21.0-32.0 [facility] Comment on above: Performed By: #### U RTPCR #### [facility] [address] [place] [address] Dr. Karen Pierce Creatinine [Mass/Vol] 8.99 mg/dL Critically high 0.70-1.30 [facility] Comment on above: Performed By: #### U RTPCR #### [facility] [address] [place] [address] Dr. Karen Pierce EGFR-AF MONEGASQUE 7 mL/min/1.73m2 Critically low >=60 [facility] Comment on above: Performed By: #### U RTPCR #### [facility] [address] [place] [address] Dr. Karen Pierce EGFR-NON AF MONEGASQUE 6 mL/min/1.73m2 Critically low >=60 [facility] Comment on above: Performed By: #### U RTPCR #### [facility] [address] [place] [address] Dr. Karen Pierce Globulin (S) [Mass/Vol] 4.7 g/dL Normal [facility] Comment on above: Performed By: #### U RTPCR #### [facility] [address] [place] [address] Dr. Karen Pierce Glucose [Mass/Vol] 110 mg/dL Critically high 74-106 [facility] Comment on above: Performed By: #### U RTPCR #### [facility] [address] [place] [address] Dr. Karen Pierce Potassium [Moles/Vol] 5.0 mmol/L Normal 3.5-5.1 [facility] Comment on above: Performed By: #### U RTPCR #### [facility] [address] [place] [address] [address] Karen Pierce Protein [Mass/Vol] 7.8 g/dL Normal 6.4-8.2 [facility] Comment on above: Performed By: #### U RTPCR #### [facility] [address] [place] [address] [address] Karen Pierce Sodium [Moles/Vol] 134 mmol/L Critically low 136-[address] [facility] Comment on above: Performed By: #### U RTPCR #### [facility] [address] [place] [address] [address] Karen Pierce Urea nitrogen [Mass/Vol] 129.0 mg/dL Critically high 7.0-18.0 [facility] Comment on above: Performed By: #### U RTPCR #### [facility] [address] [place] [address] [address] Karen Pierce Urea nitrogen/Creatinine [Mass ratio] 14.3 mg/mg Normal [facility] Comment on above: Performed By: #### U RTPCR #### [facility] [address] [place] [address] Dr. Karen Pierce Platelet poor plasma interna tional normalized ratio (INR) by coagulation assay (relatOrdered By: Taz Barnes on 05-16-2022 INR Coag (PPP) [Relative time] 1.3 {INR} [facility] Comment on above: INR Therapeutic Rang e [...] on 05-16-2022 Protein [Mass/Vol] 6.4 g/dL 6.1-7.9 [facility] Serum or plasma alanine bal otransferase measurement without P-5'-P (enzymatic activiOrdered By: Taz Barnes on 05-16-2022 ALT No additional P-5'-P [Catalytic activity/Vol] 38 U/L 10-60 [facility] Serum or plasma albumin/glob ulin mass ratioOrdered By: Taz Barnes on 05-16-2022 Albumin/Globulin [Mass ratio] 0.8 {ratio} [facility] Serum or plasma alkaline deonte sphatase measurement (enzymatic activity/volume)Ordered By: Taz Barnes on 05-16-2022 ALP [Catalytic activity/Vol] 78 U/L 32-92 [facility] Serum or plasma aspartate am inotransferase measurement (enzymatic activity/volume)Ordered By: Taz Barnes on 05-16-2022 AST [Catalytic activity/Vol] 19 U/L 10-42 [facility] Serum or plasma total biliru bin measurement (mass/volume)Ordered By: Taz Barnes on 05-16-2022 Bilirubin [Mass/Vol] 0.4 mg/dL 0.3-1.2 [facility] URINE MICROSCOPIC ONLYon BACTERIA SMALL Abnormal NONE SEEN The [facility] Comment on above: Performed By: #### U RTPCR #### [facility] [address] [place] [address] Dr. Karen Pierce Bacteria identified Cx Nom (U) INDICATED Normal The [facility] Comment on above: Performed By: #### U RTPCR #### [facility] [address] [place] [address] [address] Karen Pierce CAST NONE SEEN Normal NONE SEEN The [facility] Comment on above: Performed By: #### U RTPCR #### [facility] [address] [address] [address] Karen Pierce Crystals LM Nom (Urine sed) NONE SEEN Normal NONE SEEN The [facility] Comment on above: Performed By: #### U RTPCR #### [facility] [address] [address] [address] Karen Pierce Epithelial cells LM Ql (Urine sed) NONE SEEN Normal NONE SEEN /RARE The [facility] Comment on above: Performed By: #### U RTPCR #### [facility] [address] [address] [address] Karen Pierce MUCOUS NONE SEEN Normal NONE SEEN The [facility] Comment on above: Performed By: #### U RTPCR #### [facility] [address] [address] [address] Karen Pierce RBC 20-50 Abnormal 0-2 The [facility] Comment on above: Performed By: #### U RTPCR #### [facility] [address] [address] [address] Karen Pierce WBC (U) [#/Vol] /uL Abnormal NONE SEEN The [facility] Comment on above: Performed By: #### U RTPCR #### [facility] [address] [address] [address] Karen Pierce Urine sodium measurement (mo les/volume)Ordered By: Taz Barnes on 05-16-2022 Sodium (U) [Moles/Vol] 42.0 mmol/L [facility] Comment on above: No reference [...] LORENZO SCHERER Date: 2022-05-16 09:25 Normal The [facility] CBC AUTO DIFFon 05-15-2022 BASO # 0.0 103/ul Normal 0.0-0.1 [facility] Comment on above: Performed By: #### U A #### [facility] [address] [address] [address] Karen Pierce Basophils/100 WBC (Bld) 0.3 % Normal 0.2-2.0 [facility] Comment on above: Performed By: #### U A #### [facility] [address] [place] [address] Dr. Karen Pierce EO # 0.1 103/ul Normal 0.0-0.7 [facility] Comment on above: Performed By: #### U A #### [facility] [address] [place] [address] Dr. Karen Pierce Eosinophils/100 WBC (Bld) 0.7 % Critically low 0.9-7.0 [facility] Comment on above: Performed By: #### U A #### [facility] [address] [place] [address] Dr. Karen Pierce Erythrocyte distribution width (RBC) [Ratio] 14.9 % Normal 11.0-15.0 [facility] Comment on above: Performed By: #### U A #### [facility] [address] [place] [address] Dr. Karen Pierce Hematocrit (Bld) [Volume fraction] 39.8 % Critically low 42.0-54.0 [facility] Comment on above: Performed By: #### U A #### [facility] [address] [place] [address] Dr. Karen Pierce Hemoglobin (Bld) [Mass/Vol] 12.7 g/dL Critically low 14.0-18.0 [facility] Comment on above: Performed By: #### U A #### [facility] [address] [place] [address] Dr. Karen Pierce IG # 0.06 10e3/ul Critically high 0.00-0.03 [facility] Comment on above: Performed By: #### U A #### [facility] [address] [place] [address] Dr. Karen Pierce IG % 0.5 % Normal 0.0-0.5 [facility] Comment on above: Performed By: #### U A #### [facility] [address] [place] [address] Dr. Karen Pierce LYMPH # 0.9 103/ul Critically low 1.2-3.8 [facility] Comment on above: Performed By: #### U A #### [facility] [address] [place] [address] Dr. Karen Pierce Lymphocytes/100 WBC (Bld) 7.1 % Critically low 20.5-60.0 [facility] Comment on above: Performed By: #### U A #### [facility] [address] [place] [address] Dr. Karen Pierce MANUAL DIFF REQ NO Normal [facility] Comment on above: Performed By: #### U A #### [facility] [address] [place] [address] Dr. Karen Pierce MCH (RBC) [Entitic mass] 27.7 pg Normal 25.9-34.0 [facility] Comment on above: Performed By: #### U A #### [facility] [address] [place] [address] Dr. Karen Pierce MCHC (RBC) [Mass/Vol] 31.9 g/dL Normal 29.9-35.2 [facility] Comment on above: Performed By: #### U A #### [facility] [address] [place] [address] Dr. Karen Pierce MCV (RBC) [Entitic vol] 86.7 fL Normal 80.0-94.0 [facility] Comment on above: Performed By: #### U A #### [facility] [address] [place] [address] Dr. Karen Pierce MONO # 1.0 103/ul Critically high 0.3-0.8 [facility] Comment on above: Performed By: #### U A #### [facility] [address] [place] [address] Dr. Karen Pierce Monocytes/100 WBC (Bld) 8.5 % Normal 1.7-12.0 [facility] Comment on above: Performed By: #### U A #### [facility] [address] [place] [address] Dr. Karen Pierce NEUT # 9.9 103/ul Critically high 1.4-6.5 [facility] Comment on above: Performed By: #### U A #### [facility] [address] [place] [address] [address] Karen Pierce Neutrophils/100 WBC (Bld) 82.9 % Critically high 43.0-75.0 [facility] Comment on above: Performed By: #### U A #### [facility] [address] [place] [address] [address] Karen Pierce Platelet mean volume (Bld) [Entitic vol] 9.7 fL Normal 9.5-13.5 [facility] Comment on above: Performed By: #### U A #### [facility] [address] [place] [address] Dr. Karen Pierce PLT 206 103/ul Normal 150-450 [facility] Comment on above: Performed By: #### U A #### [facility] [address] [place] [address] Dr. Karen Pierce RBC 4.59 106/ul Critically low 4.70-6.10 [facility] Comment on above: Performed By: #### U A #### [facility] [address] [place] [address] Dr. Karen Pierce WBC 11.9 103/ul Critically high 4.0-11.0 [facility] Comment on above: Performed By: #### U A #### [facility] [address] [place] [address] Dr. Karen Pierce LIPASEon 05-15-2022 Lipase [Catalytic activity/Vol] 340.0 U/L Normal 73.0-393.0 [facility] Comment on above: Performed By: #### U A #### [facility] [address] [place] [address] Dr. Karen Pierce PROF 14(COMP METB)on 022 Albumin [Mass/Vol] 3.1 g/dL Critically low 3.4-5.[address] [facility] Comment on above: Performed By: #### U A #### [facility] [address] [place] [address] Dr. Karen Pierce Albumin/Globulin [Mass ratio] 0.7 {ratio} Normal [facility] Comment on above: Performed By: #### U A #### [facility] [address] [place] [address] Dr. Karen Pierce ALP [Catalytic activity/Vol] 105 U/L Normal 46-116 [facility] Comment on above: Performed By: #### U A #### [facility] [address] [place] [address] Dr. Karen Pierce ALT [Catalytic activity/Vol] 49 U/L Normal 16-63 [facility] Comment on above: Performed By: #### U A #### [facility] [address] [place] [address] Dr. Karen Pierce Anion gap [Moles/Vol] 18.4 mmol/L Normal [facility] Comment on above: Performed By: #### U A #### [facility] [address] [place] [address] Dr. Karen Pierce AST [Catalytic activity/Vol] 20 U/L Normal 15-37 [facility] Comment on above: Performed By: #### U A #### [facility] [address] [place] [address] Dr. Karen Pierce Bilirubin [Mass/Vol] 0.3 mg/dL Normal 0.2-1.0 [facility] Comment on above: Performed By: #### U A #### [facility] [address] [place] [address] Dr. Karen Pierce Calcium [Mass/Vol] 9.1 mg/dL Normal 8.5-10.1 [facility] Comment on above: Performed By: #### U A #### [facility] [address] [place] [address] Dr. Karen Pierce Chloride [Moles/Vol] 103 mmol/L Normal 98-107 [facility] Comment on above: Performed By: #### U A #### [facility] [address] [place] [address] Dr. Karen Pierce CO2 [Moles/Vol] 20.1 mmol/L Critically low 21.0-32.0 [facility] Comment on above: Performed By: #### U A #### [facility] [address] [address] [address] Karen Pierce Creatinine [Mass/Vol] 9.58 mg/dL Critically high 0.70-1.30 [facility] Comment on above: Performed By: #### U A #### [facility] [address] [address] [address] Karen Pierce EGFR-AF MONEGASQUE 6 mL/min/1.73m2 Critically low >=60 [facility] Comment on above: Performed By: #### U A #### [facility] [address] [address] [address] Karen Pierce EGFR-NON AF MONEGASQUE 5 mL/min/1.73m2 Critically low >=60 [facility] Comment on above: Performed By: #### U A #### [facility] [address] [address] [address] Karen Pierce Globulin (S) [Mass/Vol] 4.6 g/dL Normal [facility] Comment on above: Performed By: #### U A #### [facility] [address] [address] [address] Karen Pierce Glucose [Mass/Vol] 114 mg/dL Critically high 74-106 [facility] Comment on above: Performed By: #### U A #### [facility] [address] [address] [address] Karen Pierce Potassium [Moles/Vol] 5.5 mmol/L Critically high 3.5-5.1 [facility] Comment on above: Performed By: #### U A #### [facility] [address] [address] [address] Karen Pierce Protein [Mass/Vol] 7.7 g/dL Normal 6.4-8.2 [facility] Comment on above: Performed By: #### U A #### [facility] [address] [address] [address] Karen Pierce Sodium [Moles/Vol] 136 mmol/L Normal 136-145 [facility] Comment on above: Performed By: #### U A #### [facility] [address] [address] [address] Karen Pierce Urea nitrogen [Mass/Vol] 134.0 mg/dL Critically high 7.0-18.0 [facility] Comment on above: Performed By: #### U A #### [facility] [address] [place] [address] Dr. Karen Pierce Urea nitrogen/Creatinine [Mass ratio] 14.0 mg/mg Normal [facility] Comment on above: Performed By: #### U A #### [facility] [address] [place] [address] Dr. Karen Pierce PROF CHEM 8 (BAS METB)on Anion gap [Moles/Vol] 12.6 mmol/L Normal [facility] Comment on above: Performed By: #### B MP #### [facility] [address] [place] [address] Dr. Karen Pierce Calcium [Mass/Vol] 8.7 mg/dL Normal 8.5-10.1 [facility] Comment on above: Performed By: #### B MP #### [facility] [address] [place] [address] Dr. Karen Pierce Chloride [Moles/Vol] 103 mmol/L Normal 98-107 [facility] Comment on above: Performed By: #### B MP #### [facility] [address] [place] [address] Dr. Karen Pierce CO2 [Moles/Vol] 27.3 mmol/L Normal 21.0-32.0 [facility] Comment on above: Performed By: #### B MP #### [facility] [address] [place] [address] Dr. Karen Pierce Creatinine [Mass/Vol] 1.26 mg/dL Normal 0.70-1.30 [facility] Comment on above: Performed By: #### B MP #### [facility] [address] [place] [address] Dr. Karen Pierce EGFR-AF MONEGASQUE >60 Normal >=60 [facility] Comment on above: Performed By: #### B MP #### [facility] [address] [address] [address] Karen Pierce EGFR-NON AF MONEGASQUE 55 mL/min/1.73m2 Critically low >=60 [facility] Comment on above: Performed By: #### B MP #### [facility] [address] [address] [address] Karen Pierce Glucose [Mass/Vol] 111 mg/dL Critically high 74-106 T [facility] Comment on above: Performed By: #### B MP #### [facility] [address] [address] [address] Karen Pierce Potassium [Moles/Vol] 3.9 mmol/L Normal 3.5-5.1 [facility] Comment on above: Performed By: #### B MP #### [facility] [address] [address] [address] Karen Pierce Sodium [Moles/Vol] 139 mmol/L Normal 136-145 [facility] Comment on above: Performed By: #### B MP #### [facility] [address] [address] [address] Karen Pierce Urea nitrogen [Mass/Vol] 21.0 mg/dL Critically high 7.0-18.0 [facility] Comment on above: Performed By: #### B MP #### [facility] [address] [address] [address] Karen Pierce Urea nitrogen/Creatinine [Mass ratio] 16.7 mg/mg Normal [facility] Comment on above: Performed By: #### B MP #### [facility] [address] [address] [address] Karen Pierce Comprehensive Metabolic Pane howard 05-11-2021 Albumin [Mass/Vol] 4.5 g/dL Normal 3.6-5.1 [place] [facility] Director Broadcast Comment on above: Performed By: #### C MP, LIPD #### [facility] [address] [place], [place] [id number] Albumin/Globulin [Mass ratio] 2.0 {ratio} Normal 1.0-2.5 [facility] Director Broadcast Comment on above: Performed By: #### C MP, LIPD #### [facility] [address] [place], [place] [id number] ALP [Catalytic activity/Vol] 97 U/L Normal 40-129 [facility] Comment on above: Performed By: #### C MP, LIPD #### [facility] [address] [facility] [place] [place] [id number] ALT [Catalytic activity/Vol] 18 U/L Normal 9-46 [facility] Comment on above: Result Comment: 04/25 Female reference range changed. Performed By: #### C MP, LIPD #### [facility] [address] [facility] [place] [id number] Anion gap [Moles/Vol] 17 mmol/L Normal 12-20 [facility] Comment on above: Result Comment: Effe ctive 05/31/2019 reference range changed. Performed By: #### C ROBYN, LIPD #### [facility] [address] [facility] [id number] AST [Catalytic activity/Vol] 15 U/L Normal 10-40 [facility] Comment on above: Performed By: #### C ROBYN, LIPD #### [facility] [address] [facility] [id number] Bilirubin [Mass/Vol] 0.55 mg/dL Normal 0.30-1.20 [facility] Comment on above: Performed By: #### C ROBYN, LIPD #### [facility] [address] [facility] [id number] BUN/CREA 17 Ratio Normal 6-22 [facility] Comment on above: Performed By: #### C MP, LIPD #### [facility] [address] [facility] [id number] Calcium [Mass/Vol] 9.8 mg/dL Normal 8.6-10.2 [facility] Comment on above: Performed By: #### C MP, LIPD #### [facility] [address] [facility] [id number] Chloride [Moles/Vol] 106 mmol/L Normal 98-107 [facility] Comment on above: Performed By: #### C ROBYN LIPElvie #### [facility] [address] [facility] [id number] CO2 [Moles/Vol] 23 mmol/L Normal 20-31 [facility] Specialist Comment on above: Performed By: #### C ROBYN LIPElvie #### [facility] [address] [facility] [id number] Creatinine [Mass/Vol] 1.2 mg/dL Normal 0.7-1.4 Nor [facility] Specialist Comment on above: Performed By: #### C ROBYN LIPD #### [facility] [address] [place], [place] [id number] eGFRAA 73 mL/min/1.73m2 Normal >60 [facility]ist Comment on above: Performed By: #### C KILO CARLSON #### [facility] [address] [place], [place] [id number] eGFRNAA 60 mL/min/1.73m2 Low >60 [facility] Specialist Comment on above: Performed By: #### C KILO CARLSON #### [facility] [address] [place], [place] [id number] Globulin (S) [Mass/Vol] 2.3 g/dL Normal 1.9-3.7 N [facility] Specialist Comment on above: Performed By: #### C ROBYN LIPElvie #### [facility] [address] [place], [place] [id number] Glucose [Mass/Vol] 105 mg/dL High 65-99 [facility] Specialist Comment on above: Result Comment: For FASTING Glucose --- ADA reference ranges: Normal 65-99 mg/dl Prediabetes 100-125 Diabetes >/= 126 Performed By: #### C ROBYN LIPElvie #### [facility] [address] [facility] [id number] Potassium [Moles/Vol] 4.1 mmol/L Normal 3.5-5.5 [facility] Specialist Comment on above: Performed By: #### C ROBYN LIPElvie #### [facility] [address] [facility] [id number] Protein [Mass/Vol] 6.8 g/dL Normal 6.1-8.1 [place] [place] Director Broadcast Comment on above: Performed By: #### C ROBYN, LIPD #### [facility] [address] [place], [place] [id number] Sodium [Moles/Vol] 142 mmol/L Normal 135-146 Melida [facility] [place] Director Broadcast Comment on above: Performed By: #### C ROBYN, LIPD #### [facility] [address] [place], [place] [id number] Urea nitrogen [Mass/Vol] 20 mg/dL Normal 7-25 [facility] Specialist Comment on above: Performed By: #### C ROBYN, LIPD #### [facility] [address] [address] [place] [id number] Lipid Panelon 05-11-2021 Cholesterol [Mass/Vol] 109 mg/dL Low 125-200 [facility]: Result Comment: Low risk < 200mg/dL Borderline risk 201-239 mg/dl High risk > or equal to 240 Performed By: #### C ROBYN, LIPD #### [facility] [address] [facility] [place] [id number] Cholesterol in HDL [Mass/Vol] 30 mg/dL Low >40 [facility] Specialist Comment on above: Result Comment: High Cardiovascular Risk HDL <40 mg/dL Low Cardiovascular Risk HDL > or equal to 60 mg/dl Performed By: #### C ROBYN, LIPD #### [facility] [address] [facility] [id number] Cholesterol in LDL [Mass/Vol] 54 mg/dL Normal [facility] Comment on above: Result Comment: LDL ATP III CLASSIFICATION LDL less than 100 mg/dl Optimal LDL 100-129 mg/dl Near or above optimal LDL 130-159 Borderline high LDL 160-189 High LDL greater than 189 mg/dl Very High Performed By: #### C ROBYN, LIPD #### [facility] [address] [address] [facility] [place] [id number] Cholesterol in VLDL [Mass/Vol] 25 mg/dL Normal [facility] Specialist Comment on above: Performed By: #### C ROBYN, LIPD #### [facility] [address] [place], [place] [id number] Cholesterol.total/Sonya sterol in HDL [Mass ratio] 4 {ratio} Normal [facility] Director Broadcast Comment on above: Performed By: #### C MP, LIPD #### [facility] [address] [place], [place] [id number] Triglyceride [Mass/Vol] 126 mg/dL Normal 30-150 N [place] Director Broadcast Comment on above: Result Comment: TRIG ATPIII CLASSIFICATIONS TRIG less than 150 mg/dl Normal TRIG 150-199 mg/dl Borderline High TRIG 200-500 mg/dl High TRIG greather than 500 mg/dl Very High Performed By: #### C MP, LIPD #### [facility] [address] [place], [place] [id number] Vital Signs Date Time Vital Sign Value Performing Clinician Facility 06-30-2023 14:17-0500 Blood Pressure Location Katia JACOBS [facility] 06-30-2023 14:17-0500 Diastolic blood pressure 77 mm[Hg] Katia JACOBS [facility] 06-30-2023 14:17-0500 Heart rate 70 /min Katia JACOBS [facility] 06-30-2023 14:17-0500 Respiratory rate 16 /min Katia JACOBS [facility] 06-30-2023 14:17-0500 Systolic blood pressure 109 mm[Hg] Katia JACOBS [facility] 04-15-2023 14:00-0500 Body height 187.96 cm [employer] Other [facility] Other 04-15-2023 14:00-0500 Body mass index (BMI) [Ratio] 28.73 kg/m2 [employer] Other [facility] Other 04-15-2023 14:00-0500 Body temperature 96.8 [degF] [employer] Other [facility] Other 04-15-2023 14:00-0500 Body weight 101.52 kg Celia Rothmans Other [facility] Other 04-15-2023 14:00-0500 Diastolic blood pressure 100 mm[Hg] Celia Rothmans Other [facility] Other 04-15-2023 14:00-0500 Respiratory rate 18 /min Celia Rothmans Other [facility] Other 04-15-2023 14:00-0500 SaO2% (BldA) [Mass fraction] 96 % Celia Rothmans Other [facility] Other 04-15-2023 14:00-0500 Systolic blood pressure 161 mm[Hg] Celia Rothmans Other [facility] Other 03-11-2023 13:38-0400 Blood Pressure Location Katia JACOBS [facility] 03-11-2023 13:38-0400 Diastolic blood pressure 100 mm[Hg] Katia JACOBS [facility] 03-11-2023 13:38-0400 Heart rate 72 /min Katia JACOBS [facility] 03-11-2023 13:38-0400 Systolic blood pressure 150 mm[Hg] Katia JACOBS [facility] 01-22-2023 09:57-0400 Body height 187.96 cm Stanley Emerson Work Phone: [facility] DO Work Phone: 01-22-2023 09:57-0400 Body mass index (BMI) [Ratio] 27.35 kg/m2 Stanley Emerson Work Phone: [facility] DO Work Phone: 01-22-2023 09:57-0400 Body surface area Derived from formula 2.23 m2 Stanley Emerson Work Phone: [facility] DO Work Phone: 01-22-2023 09:57-0400 Body weight 96.62 kg Stanley Emerson Work Phone: [facility] DO Work Phone: 01-22-2023 09:57-0400 Diastolic blood pressure 88 mm[Hg] Stanley Emerson Work Phone: [facility] DO Work Phone: 01-22-2023 09:57-0400 Heart rate 72 /min Stanley Emerson Work Phone: [facility] DO Work Phone: 01-22-2023 09:57-0400 Systolic blood pressure 126 mm[Hg] Stanley Emerson Work Phone: [facility] DO Work Phone: 08-21-2022 14:30-0400 Body height 187.96 cm Carlene Kasper Other [facility] Other 08-21-2022 14:30-0400 Body mass index (BMI) [Ratio] 26.32 kg/m2 Carlene Kasper Other [facility] Other 08-21-2022 14:30-0400 Body temperature 97.8 [degF] Carlene Kasper Other [facility] Other 08-21-2022 14:30-0400 Body weight 92.99 kg Carlene Kasper Other [facility] Other 08-21-2022 14:30-0400 Diastolic blood pressure 82 mm[Hg] Carlene Kasper Other [facility] Other 08-21-2022 14:30-0400 SaO2% (BldA) [Mass fraction] 96 % Carlene Kasper Other [facility] Other 08-21-2022 14:30-0400 Systolic blood pressure 124 mm[Hg] Carlene Kasper Other [facility] Other 07-31-2022 07:25-0500 Blood Pressure Location Katia [employer] [facility] 07-31-2022 07:25-0500 Diastolic blood pressure 89 mm[Hg] Katia JACOBS [facility] 07-31-2022 07:25-0500 Heart rate 70 /min Katia JACOBS [facility] 07-31-2022 07:25-0500 Respiratory rate 16 /min Katia JACOBS [facility] 07-31-2022 07:25-0500 Systolic blood pressure 130 mm[Hg] Katia JACOBS [facility] 07-25-2022 09:45-0500 Body height 187.96 cm Margarito Valentine Other [facility] Other 07-25-2022 09:45-0500 Body mass index (BMI) [Ratio] 26.32 kg/m2 Margarito Serge Other [facility] Other 07-25-2022 09:45-0500 Body temperature 96.2 [degF] Margarito Valentine Other [facility] Other 07-25-2022 09:45-0500 Body weight 92.99 kg Margarito Serge Other [facility] Other 07-25-2022 09:45-0500 Diastolic blood pressure 60 mm[Hg] Margarito Valentine Other [facility] Other 07-25-2022 09:45-0500 SaO2% (BldA) [Mass fraction] 97 % Margarito Valentine Other [facility] Other 07-25-2022 09:45-0500 Systolic blood pressure 110 mm[Hg] Margarito Valentine Other [facility] Other 07-03-2022 07:34-0500 Body temperature 98.9 [degF] MD Stanley Emerson Work Phone: [facility] 07-03-2022 07:34-0500 Diastolic blood pressure 91 mm[Hg] MD Stanley Emerson Work Phone: [facility] 07-03-2022 07:34-0500 Heart rate 87 /min MD Stanley Emerson Work Phone: [facility] 07-03-2022 07:34-0500 Respiratory rate 18 /min MD Stanley Emerson Work Phone: [facility] 07-03-2022 07:34-0500 SaO2% (BldA) [Mass fraction] 94 % MD Stanley Emerson Work Phone: [facility] 07-03-2022 07:34-0500 Systolic blood pressure 159 mm[Hg] MD Stanley Emerson Work Phone: [facility] 07-03-2022 05:46-0500 Body weight 94 kg MD Stanley Emerson Work Phone: [facility] 07-02-2022 16:27-0500 Inhaled oxygen flow rate 6 L/min MD Stanley Emerson Work Phone: [facility] 07-02-2022 10:06-0500 Body height 185.42 cm MD Stanley Emerson Work Phone: [facility] 07-02-2022 10:06-0500 Body mass index (BMI) [Ratio] 27.3 kg/m2 MD Stanley Emerson Work Phone: [facility] 06-19-2022 10:00-0500 Body height 187.96 cm Margarito Valentine Other [facility] Other 06-19-2022 10:00-0500 Body mass index (BMI) [Ratio] 26.32 kg/m2 Margarito Valentine Other [facility] Other 06-19-2022 10:00-0500 Body temperature 97.8 [degF] Margarito Valentine Other [facility] Other 06-19-2022 10:00-0500 Body weight 92.99 kg Margarito Valentine Other [facility] Other 06-19-2022 10:00-0500 Diastolic blood pressure 68 mm[Hg] Margarito Valentine Other [facility] Other 06-19-2022 10:00-0500 SaO2% (BldA) [Mass fraction] 95 % Margarito Valentine Other [facility] Other 06-19-2022 10:00-0500 Systolic blood pressure 108 mm[Hg] Margarito Valentine Other [facility] Other 06-12-2022 13:07-0500 Body height 187.96 cm MD Stanley Emerson Work Phone: [facility] 06-12-2022 13:07-0500 Body weight 93.44 kg MD Stanley Emerson Work Phone: [facility] 06-06-2022 12:00-0500 Body height 187.96 cm Margarito Valentine Other [facility] Other 06-06-2022 12:00-0500 Body mass index (BMI) [Ratio] 26.32 kg/m2 Margarito Valentine Other [facility] Other 06-06-2022 12:00-0500 Body temperature 97.2 [degF] Margarito Valentine Other [facility] Other 06-06-2022 12:00-0500 Body weight 92.99 kg Margarito Valentine Other [facility] Other 06-06-2022 12:00-0500 Diastolic blood pressure 70 mm[Hg] Margarito Valentine Other [facility] Other 06-06-2022 12:00-0500 SaO2% (BldA) [Mass fraction] 98 % Margarito Valentine Other [facility] Other 06-06-2022 12:00-0500 Systolic blood pressure 108 mm[Hg] Margarito Valentine Other [facility] Other 06-04-2022 12:00-0500 Body height 187.96 cm Celia Rothmans Other [facility] Other 06-04-2022 12:00-0500 Body mass index (BMI) [Ratio] 26.42 kg/m2 Azjessie Bakhous Other [facility] Other 06-04-2022 12:00-0500 Body temperature 96.6 [degF] Celia Rothmans Other [facility] Other 06-04-2022 12:00-0500 Body weight 93.35 kg Celia Rothmans Other [facility] Other 06-04-2022 12:00-0500 Diastolic blood pressure 70 mm[Hg] Azjessie Rothmans Other [facility] Other 06-04-2022 12:00-0500 Respiratory rate 20 /min Celia Starkshous Other [facility] Other 06-04-2022 12:00-0500 SaO2% (BldA) [Mass fraction] 98 % Azjessie Bakhous Other [facility] Other 06-04-2022 12:00-0500 Systolic blood pressure 100 mm[Hg] Aziz Bakhous Other [facility] Other 06-03-2022 15:38-0500 Body height 187.96 cm Stanley Emerson Work Phone: [facility] DO Work Phone: 06-03-2022 15:38-0500 Body mass index (BMI) [Ratio] 26.45 kg/m2 Stanley Emerson Work Phone: [facility] DO Work Phone: 06-03-2022 15:38-0500 Body surface area Derived from formula 2.2 m2 Stanley Emerson Work Phone: [facility] DO Work Phone: 06-03-2022 15:38-0500 Body weight 93.44 kg Stanley Emerson Work Phone: [facility] DO Work Phone: 06-03-2022 15:38-0500 Diastolic blood pressure 78 mm[Hg] Stanley Emerson Work Phone: [facility] DO Work Phone: 06-03-2022 15:38-0500 Heart rate 71 /min Stanley Emerson Work Phone: [facility] DO Work Phone: 06-03-2022 15:38-0500 Systolic blood pressure 106 mm[Hg] Stanley Emerson Work Phone: [facility] DO Work Phone: 05-22-2022 11:53-0500 Body temperature 98.8 [degF] MD Stanley Emerson Work Phone: [facility] 05-22-2022 11:53-0500 Diastolic blood pressure 72 mm[Hg] MD Stanley Emerson Work Phone: [facility] 05-22-2022 11:53-0500 Heart rate 78 /min MD Stanley Emerson Work Phone: [facility] 05-22-2022 11:53-0500 Respiratory rate 16 /min MD Stanley Emerson Work Phone: [facility] 05-22-2022 11:53-0500 SaO2% (BldA) [Mass fraction] 97 % MD Stanley Emerson Work Phone: [facility] 05-22-2022 11:53-0500 Systolic blood pressure 108 mm[Hg] MD Stanley Emerson Work Phone: [facility] 05-22-2022 06:02-0500 Body weight 88.8 kg MD Stanley Emerson Work Phone: [facility] 05-21-2022 11:48-0500 63 1 Stanley Emerson Work Phone: [facility] DO Work Phone: Comment on above: [id number] 05-17-2022 12:08-0500 Body height 187.96 cm MD Stanley Emerson Work Phone: [facility] Encounters Encounter Date Encounter Type Care Provider Facility Start: 08-04-2023 End: 08-04-2023 ambulatory STANLEY EMERSON Not Available Start: 07-01-2023 End: 07-02-2023 ambulatory Katia JACOBS Facility:[facility] Start: 06-30-2023 End: 07-01-2023 ambulatory Katia JACOBS Facility:[facility] Start: 06-30-2023 End: 06-30-2023 Patient encounter procedure Katia JACOBS [facility] Start: 06-16-2023 End: 06-17-2023 ambulatory Katia JACOBS Facility:[facility] Start: 06-16-2023 End: 06-16-2023 Patient encounter procedure Katia JACOBS [facility] Start: 06-10-2023 End: 06-11-2023 ambulatory Katia JACOBS [facility] Start: 06-10-2023 End: 06-10-2023 Patient encounter procedure Katia JACOBS [facility] Start: 05-28-2023 End: 05-28-2023 ambulatory STANLEY EMERSON Not Available Start: 05-12-2023 End: 05-12-2023 ambulatory STANLEY EMERSON Not Available Start: 05-06-2023 End: 05-06-2023 ambulatory Aziz Bakhous Other [facility] Other Start: 05-06-2023 Telephone encounter Aziz Bakhous [facility] Start: 04-16-2023 End: 04-16-2023 ambulatory Aziz Bakhous Other [facility] Other Start: 04-16-2023 Telephone encounter Aziz Bakhous [facility] Start: 04-15-2023 End: 04-15-2023 ambulatory Aziz Bakhous Other [facility] Other Start: 04-15-2023 Office outpatient vi sit 25 minutes Aziz Bakhous [facility] Start: 04-08-2023 End: 04-08-2023 ambulatory Teo Stokes Facility:[facility] Start: 04-08-2023 End: 04-08-2023 ambulatory MD Stanley Emerson Work Phone: [facility] Work Phone: Start: 04-08-2023 End: 04-08-2023 Patient encounter procedure MD Stanley Emerson Work Phone: [facility] Start: 03-11-2023 End: 03-12-2023 ambulatory Katia JACOBS [place] Start: 03-11-2023 End: 03-11-2023 Lab Drop off Katia JACOBS [facility] Start: 03-11-2023 End: 03-11-2023 Patient encounter procedure Katia Hall JACOBS [facility] Start: 01-22-2023 Office outpatient vi sit 25 minutes Stanley Emesron Work Phone: [facility] DO Work Phone: Start: 01-22-[address] Teo Stokes Facility:[facility] Start: 12-25-2022 End: 12-26-2022 ambulatory Katia JACOBS [facility] Start: 12-25-2022 End: 12-25-2022 Patient encounter procedure Katia JACOBS [facility] Start: 12-10-2022 End: 12-11-2022 ambulatory Katia JACOBS Facility[facility] Start: 12-10-2022 End: 12-10-2022 Lab Drop off Katia R JACOBS [facility] Start: 12-10-2022 End: 12-11-2022 ambulatory Katia JACOBS Facility: [facility] Start: 12-10-2022 End: 12-10-2022 Patient encounter procedure Katia R JACOBS [facility] Start: 10-04-2022 End: 10-05-2022 ambulatory Katiadesi JACOBS Facility:[facility] Start: 10-04-2022 End: 10-04-2022 Patient encounter procedure Katia R JACOBS [facility] Start: 09-18-2022 End: 09-19-2022 ambulatory Katia JACOBS Facility:[facility] Start: 09-18-2022 End: 09-18-2022 Patient encounter procedure Katia JACOBS [facility] Start: 09-15-2022 End: 09-15-[address] STANLEY EMERSON . Facility:[facility] Start: 09-12-2022 End: 09-13-[address] STANLEY EMERSON . Facility:[facility] Start: 09-08-2022 Encounter for preprocedural laboratory examination JONHJESSIE ROTHMANAidee [facility] Start: 09-04-2022 End: 09-05-[address] STANLEY EMERSON . Facility:[facility] Start: 09-04-2022 Encounter for preprocedural cardiovascular examination DR KATIA JACOBS . [facility] Start: 09-02-2022 End: 09-03-[address] STANLEY EMERSON . Facility:[facility] Start: 09-02-2022 End: 09-03-2022 Encounter for preprocedural laboratory examination DR STANLEY EMERSON . Facility:[facility] Start: 09-02-2022 End: 09-03-[address] STANLEY EMERSON . Facility:[facility] Start: 09-02-2022 End: 09-03-2022 Encounter for preprocedural cardiovascular examination DR STANLEY EMERSON . Facility:[facility] Start: 08-21-2022 End: 08-21-2022 ambulatory Carlene Kasper Other [facility] Other Start: 08-21-2022 Follow-up encounter Carlene Dickerson [facility] Start: 08-16-2022 End: 08-16-2022 ambulatory Stanley Emerson Facility:[facility] Start: 08-16-2022 End: 08-16-2022 ambulatory MD Stanley Emerson Work Phone: [facility] Work Phone: Start: 08-16-2022 End: 08-16-2022 Patient encounter procedure MD Stanley Emerson Work Phone: [facility] Work Phone: Start: 07-31-2022 End: 07-31-2022 Patient encounter procedure Katia JACOBS [facility] Start: 07-25-2022 End: 07-25-2022 ambulatory Margarito Valentine Other [facility] Other Start: 07-25-2022 Postop follow up vis it related to original px Margarito Valentine [facility] Start: 07-24-2022 End: 07-24-2022 ambulatory Stanley Emerson Facility:[facility] Start: 07-24-2022 End: 07-24-2022 ambulatory MD Stanley Emerson Work Phone: [facility] Work Phone: Start: 07-24-2022 End: 07-24-2022 Patient encounter procedure MD Stanley Emerson Work Phone: [facility] Work Phone: Start: 07-02-2022 End: 07-03-2022 Evaluation and management of inpatient MD Stanley Emerson Work Phone: [facility] Work Phone: Start: 06-21-2022 End: 06-21-2022 Patient encounter procedure MD Stanley Emerson Work Phone: [facility] [employer] Work Phone: Start: 06-19-2022 End: 06-19-2022 ambulatory Margarito Valentine Other [employer] Other Start: 06-19-2022 Office outpatient vi sit 25 minutes Margarito Valentine [facility] Start: 06-12-2022 End: 06-12-2022 ambulatory MD Stanley Emerson Work Phone: [facility] Work Phone: Start: 06-12-2022 End: 06-12-2022 Patient encounter procedure MD Stanley Emerson Work Phone: [facility]-CT Scan [facility] Work Phone: Start: 06-11-2022 End: 06-11-2022 Patient encounter procedure HEATHER OMALLEY [facility] Start: 06-06-2022 End: 06-06-2022 ambulatory Margarito Valentine Other [employer] Other Start: 06-06-2022 Office outpatient vi sit 25 minutes Margarito Valentine [facility] Start: 06-04-2022 End: 06-04-2022 ambulatory Celia Griffin Other [employer] Other Start: 06-04-2022 Office outpatient vi sit 25 minutes Celia Griffin [facility] Start: 06-03-2022 Office outpatient vi sit 25 minutes Stanley Emerson Work Phone: [facility] 250 DO Work Phone: Start: 06-03-[address] Stanley Emerson Facility: Start: 05-21-[address] Stanley Emerson Facility:[id number] Start: 05-20-[address] Stanley Emerson Facility:[id number] Start: 05-19-[address] Teo Stokes Facility:[id number] Start: 05-18-[address] Teo Stokes Facility:[id number] Start: 05-17-[address] Stanley Emerson Facility:[id number] Start: 05-17-2022 Bradyarrhythmia MD Stanley billingsley Work Phone: [facility] Start: 05-17-[address] Teo Stokes Facility:[id number] Start: 05-16-2022 End: 05-22-2022 Encounter for preprocedural cardiovascular examination MD Stanley Emerson Work Phone: [facility] Start: 05-16-2022 End: 05-22-2022 Evaluation and management of inpatient MD Stanley Emerson Work Phone: [facility] [place] [place] [address] Work Phone: Start: 05-16-2022 End: 05-16-[address] STANLEY EMERSON . Facility:H1 Start: 05-15-2022 End: 05-16-[address] STANLEY EMERSON . Facility:H1 Start: 01-04-2022 End: 01-04-[address] STANLEY EMERSON . Facility: Patient encounter status Stanley Emerson Work Phone: [facility] 250 DO Work Phone: End: 01-22-2023 Patient encounter status Stanley Emerson Work Phone: [facility] 250 DO Work Phone: Procedures Date Procedure Procedure Detail Performing Clinician Start: 03-11-2023 Cystoscope, device (physical object) Katia JACOBS Start: 09-12-2022 Transurethral resect ion of bladder neoplasm Katia JACOBS Start: 08-16-2022 Computed tomography angiography of abdominal [...] MD Stanley Emerson Work Phone: Cataract surgery Peteludy Donovan deny Work Phone: Insertion of stent i n [...] Teo Stokes, Status: Pen, Time: [facility] [facility] Work Phone: Start: 04-08-2023 Bacteria identified in Urine by Culture [facility] Start: 12-10-2022 FUV, Provider: Teo Stokes, Status: Pen, Time: 10:10 AM FUV, Provider: Teo Stokes, Status: Pen, Time: 10:10 AM [facility] 250 DO Work Phone: Start: 07-24-2022 MR Abdomen WO and W contrast IV [facility] Start: 07-24-2022 MRI of abdomen with contrast MR abdomen wo/w con [facility] Start: 07-03-2022 [facility] Start: 07-02-2022 Fluoroscopy of Aorta and Bilateral Lower Extremity Arteries using Low Osmolar Contrast Fluoroscopy of Aorta and Bilateral Lower Extremity Arteries using Low Osmolar Contrast [facility] Start: 07-02-2022 Restriction of Abdominal Aorta with Intraluminal Device, Percutaneous Approach Restriction of Abdominal Aorta with Intraluminal Device, Percutaneous Approach [facility] Start: 05-22-2022 [facility] Start: 05-20-2022 Evaluation procedure [facility] Start: 05-19-2022 [facility] Start: 05-17-2022 End: 05-17-2022 [facility] Start: 05-16-2022 Referral to senior qa automation engineer [facility] Start: 05-16-2022 Referral to vascular surgeon [facility] Start: 05-16-2022 Hospital admission [facility] Patient Education [facility] Work Phone: Patient referral [facility] Work Phone: [facility] Immunizations Immunization Date Immunization Notes Care Provider Markus russell 03-29-2022 Pfizer COVID-19 Vac Bivalent 30 MCG/0.3ML Intramuscular Suspension Stanley Emerson Work Phone: [facility] 03-16-2022 influenza virus vacc ine, unspecified formulation Katia JACOBS [facility] 03-16-2022 influenza, seasonal, injectable Stanley Emerson Work Phone: [facility] 250 DO Work Phone: 03-06-2022 Fluzone High-Dose Quadrivalent 0.7 ML Intramuscular Suspension Prefilled Syringe Stanley Emerson Work Phone: [facility] 250 DO Work Phone: 03-06-2022 influenza virus vacc ine, unspecified formulation HEATHER OMALLEY [facility] 10-03-2021 Comirnaty 30 MCG/0.3 ML Intramuscular Suspension Stanley Emerson Work Phone: [facility] 250 DO Work Phone: 10-03-2021 COVID-19 mRNA, Taniya wright (Pfizer) MD Stanley Emerson Work Phone: [facility] 10-03-2021 SARS-CoV-2 mRNA (lkrwtsohbzt-ooum-rsvhjq e) vaccine HEATHER OMALLEY [facility] 04-23-2021 pneumococcal polysaccharide vaccine, 23 valent Stanley Emerson Work Phone: [facility] 02-22-2021 influenza virus vacc ine, unspecified formulation Katia JACOBS [facility] 02-22-2021 influenza, injectabl e, quadrivalent, preservative free Stanley Emerson Work Phone: [facility] 250 DO Work Phone: 02-21-2021 Pfizer-BioNTech COVI D-19 Vacc 30 MCG/0.3ML Intramuscular Suspension Stanley Emerson Work Phone: [facility] Comment on above: Result Comment: 2022: [id number] 07-28-2020 Pfizer-BioNTech COVI D-19 Vacc 30 MCG/0.3ML Intramuscular Suspension Stanley Emerson Work Phone: [facility] 07-07-2020 Pfizer-BioNTech COVI D-19 Vacc 30 MCG/0.3ML Intramuscular Suspension Stanley Emerson Work Phone: [facility] 02-22-2020 influenza virus vacc ine, unspecified formulation HEATHER OMALLEY [facility] 02-22-2020 Seasonal, quadrivale nt, recombinant, injectable influenza vaccine, preservative free Stanley Emerson Work Phone: [facility] 250 DO Work Phone: Payers Date Payer Category Payer Self-pay 2017 Medicare [id number] 1959 Medicare [id number] 1959 Private Health Insurance [id number] 1943 Unknown [id number] 2.16.840.1.821042.3.579.2.593 1943 Unknown [id number] 2.16.840.1.652169.3.579.2.593 1943 Unknown [id number] 2.16.840.1.262287.3.579.2.593 1943 Unknown [id number] 2.16.840.1.436137.3.579.2.593 1943 Unknown [id number] 2.16.840.1.477679.3.579.2.593 1943 Unknown [id number] 2.16.840.1.372845.3.579.2.593 1943 Unknown [id number] 2.16.840.1.319237.3.579.2.593 1943 Unknown [id number] 2.16.840.1.265260.3.579.2.593 1943 Unknown [id number] 2.16.840.1.776022.3.579.2.356 1943 Unknown [id number] 2.16.840.1.059607.3.579.2.356 1943 Unknown [id number] 2.16.840.1.148849.3.579.2.356 -194 Unknown [id number] 2.16.840.1.551633.3.579.2.356 1943 Unknown [id number] 2.16.840.1.829301.3.579.2.356 194 Unknown [id number] 2.16.840.1.153464.3.579.2.356 1943 Unknown [id number] 2.16.840.1.673353.3.579.2.356 1943 Unknown [id number] 2.16840.1.504283.3.579.2.356 1943 Unknown [id number] 2.840.1.175287.3.579.2.727 1943 Unknown [id number] 2.840.1.916153.3.579.2.72 1943 Unknown [id number] 2.840.1.714686.3.579.2.727 1943 Unknown [id number] 2.840.1.159511.3.579.2.727 1943 Unknown [id number] 2.840.1.336892.3.579.2.727 194 Unknown [id number] 2.840.1.594009.3.579.2.727 194 Unknown [id number] 2.840.1.640214.3.579.2.727 194 Unknown [id number] 2.840.1.226434.3.579.2.727 1943 Unknown [id number] 2.840.1.349590.3.579.2.727 194 Unknown [id number] 2.840.1.525924.3.579.2.727 07 Unknown [id number] 2.16.840.1.037223.3.579.2.727 1943 Unknown [id number] 2.16.840.1.408429.3.579.2.727 1943 Unknown [id number] 2.16.840.1.028274.3.579.2.125 9 1943 Unknown [id number] 2.16.840.1.741259.3.579.2.125 9 1943 Unknown [id number] 2.16.840.1.007385.3.579.2.125 9 Medicare Medicare Nonpatient [id number] Unknown Unknown [facility] [id number] Unknown [id number] 2.16.840.1.859451.3.579.2.531 Unknown [id number] 2.16.840.1.593773.3.579.2.531 Unknown [id number] 2.16.840.1.985093.3.579.2.531 Social History Date Type Detail Facility Daily caffeine consumption Daily caffeine consumption [facility] 250 DO Work Phone: Comment on above: 3-4 cups coffee kellen y; 05/17/23 quit; 1/2 dozen cigarettes ; Start: 06-11-2022 End: 03-11-2023 Tobacco smoking status Heavy tobacco smoker (finding) [facility] [place] Sex Assigned At Male [facility] Start: 05-17-2022 Tobacco smoking stat us NHIS Smoker (finding) [facility] Start: 1945 Sex Assigned At Male [facility] Start: 07-02-2022 End: 07-02-2022 Tobacco smoking status NHIS Ex-smoker (finding) [facility] Tobacco smoking status Never [facility] Medical Equipment Procedure Code Equipment Code Equipment Origin al Text Equipment Identifier Dates Percutaneous endovascular repair of abdominal aortic aneurysm (AAA) Abdominal aorta endovascular stent-graft ()[id number] FDA Start: 07-02-2022 Percutaneous endovascular repair of abdominal aortic aneurysm (AAA) Abdominal aorta endovascular stent-graft ()[id number] FDA Start: 07-02-2022 Percutaneous endovascular repair of abdominal aortic aneurysm (AAA) Abdominal aorta endovascular stent-graft ()[id number] FDA Start: 07-02-2022 Percutaneous endovascular repair of abdominal aortic aneurysm (AAA) Soft-tissue/mesh anchor, non-bioabsorbable ()[id number] FDA Start: 07-02-2022 Goals Date Patient Goal Desired Activity /State Functional Status Date Assessment Result Facility 06-30-2023 Functional Status N/A [facility] 06-10-2023 Functional Status N/A [facility] 03-11-2023 Functional Status N/A [facility] 12-10-2022 Functional Status N/A [facility] 09-18-2022 Functional Status N/A [facility] 07-31-2022 Functional Status N/A [facility] 07-03-2022 Functional status Patient at Baseline [facility] Work Phone: 06-11-2022 Functional Status N/A [facility] 05-16-2022 Functional status Patient Not at Baseline [facility] Work Phone: Mental Status Date Assessment Result Facility 07-03-2022 Cognitive function Cognitive Sta tus Patient at Baseline [facility] Work Phone: 05-16-2022 Cognitive function Cognitive Sta tus Patient at Baseline [facility] Work Phone: Clinical Notes 06-04-2022 to [...] Follow these instructions at home: Medicines Take ofcw-fdr-yvdohpx and prescription medicines only as told by [...] provider. Document Revised: 01/31/2021 Document Reviewed: 01/31/2021 [employer] Patient Education 2022 [employer]. Follow Up Care 05/06/2023 11:11:29 With:RALENE CASILLAS, Katia Hall, URL Address: [facility] [address] , [place] [address] [id number] When: Unknown Comments:1 day for catheter removal [facility] [place] 06-10-2023 Note [id number] [facility] 06-10-2023 Hospital Discharg e instructions Patient Education 06/10/2023 15:16:23 - Rezu Discharge Instructions (CUSTOM) [facility] Post-Procedure Instructions General Recommendations 1. Drink some [...] instructions: You will go home with a Villarreal catheter attached to a catheter bag. Follow [...] the nearest emergency room or call 911. Villarreal Catheter Care, Male A Villarreal catheter is a soft, flexible tube that is placed into the bladder to drain urine. The catheter has a balloon to hold it inside the bladder. A Villarreal catheter may be inserted if: You leak [...] cotton underwear to absorb moisture and keep skein yarn drier. 6. Keep the drainage bag below [...] concerns. Follow Up Care 05/06/2023 11:19:55 With:Katia JACOBS Address: [facility] [address] , [place] [address]- Business (1) When:06/24/2023 15:15:55 Comments:for villarreal removal [facility] 06-10-2023 Note Custom Rezum Post-Procedure Instructions [...] ? You will go home with a Villarreal catheter attached to a catheter bag. ? [...] the nearest emergency room or call 911. Villarreal Catheter Care, Male A Villarreal catheter is a soft, flexible tube that is placed into the bladder to drain urine. The catheter has a balloon to hold it inside the bladder. A Villarreal catheter may be inserted if: ? You [...] using a circul (more content not included)... [facility] 05-06-2023 Evaluation note Encounter Date Diagnosis Assessment Notes Apr, Primary hypertension (ICD-10 - I10) [facility] Other 11-21-2023 Evaluation note* Encounter Date Diagnosis Assessment Notes Treatment Notes Treatment Clinical Notes Mar, Acute kidney injury (ICD-10 - N17.9) Acute kidney injury was likely postrenal from obstructive nephropathy. BUN peaked at 129 and creatinine 8.5 g deciliter. Kidney function improved gradually with placing Villarreal catheter. Serum creatinine is back to baseline. Patient did not need hemodialysis. 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 Baseline creatinine around 1.4 to 1.5 mg/dL. Pro/CAR 333 mg/dl likely from from villarreal cath Blood pressures is elevated likely fro steroid Patient only metoprolol. No fluid overload. I also patient to stay away from NSAIDs and to keep himself well-hydrated. I will follow-up with the patient in 6 months Mar, Bilateral hydronephrosis (ICD-10 - N13.30) Patient was found to have bilateral hydroureteronephrosis along with bladder mass. Patient was discharged with Villarreal catheter . Villarreal catheter remains in place. Patient is status post TURP . Patient follows with Dr. Jacobs Mar, Abdominal aortic aneurysm (AAA) without rupture, unspecified part (ICD-10 - I71.40) Patient was accidentally found to have large fusiform AAA during hospitalization. Status post stent placement in June 2022 Mar, Hyperlipidemia, unspecified hyperlipidemia type (ICD-10 - E78.5) Patient is on statin Mar, Iron deficiency (ICD-10 - E61.1) Iron saturation improved with iron supplement. I asked the patient to continue khzk-rkr-orcfdsj iron supplement once or twice daily Mar, Primary hypertension (ICD-10 - I10) BP is elevated. Will start Norvasc 5 mg PO daily. i asked the patient to monitor Bp closely with tapering steroid dose [facility] Other 10-17-2023 Hospital Discharge instructions Patient Education [...] including vitamins, herbs, eye drops, creams, and orjx-shf-fptmpxf medicines. Any problems you or family members [...] provider tells you to take them. Taking wlqj-xpz-gopajtq medicines, vitamins, herbs, and supplements. Surgery safety [...] provider. Document Revised: 02/05/2022 Document Reviewed: 02/05/2022 [employer] Patient Education 2022 [employer]. 03/11/2023 14:15:06 Benign Prostatic Hyperplasia Benign Prostatic [...] urethra. Follow these instructions at home: Take gwwu-sfc-wjkclxq and prescription medicines only as told by [...] provider. Document Revised: 11/28/2021 Document Reviewed: 11/28/2021 [employer] Patient Education 2022 [employer]. Follow Up Care 02/07/2023 16:01:50 With:ARLENE CASILLAS, Katia Hall, URL Address: [facility] [address], [place] [address]- When:Within 3 Month(s) Comments:Sched cysto/FISH/Cytol/BT check [facility] 10-17-2023 Evaluation + Plan note Diagnostic Tests Pending * UroVysion Fish and Urine Cyto ([facility]) 03/11/23 [facility]08-15-2023 Note [id number]:[id number] 12-10-2022 Evaluation + Plan note Diagnostic Tests Pending * UroVysion Fish and Urine Cyto ([facility]) 12/10/22 [facility]07-18-2023 Hospital Discharge instructions Patient Education 12/10/2022 [...] if anything looks unusual. Men with a kbzpkg-meew-jmfoum risk for skin cancer may want to see a 4 h youth development specialist (retail store clerk) for an annual body check. What are the benefits of screening? Cancer screening is done to look for cancer in the very early stages, before it spreads and becomesharder to treat and before you would start to notice symptoms. Finding cancer early improves the chances of successful treatment. It may save your life. Where to find more information [place] [employer]: www.cancer.org Centers for Disease Control and Prevention: www.cdc.gov National Cancer [place]: www.cancer.gov Contact a health care provider if: [...] provider. Document Revised: 10/08/2021 Document Reviewed: 04/07/2020 [employer] Patient Education 2022 [employer]. Follow Up Care 11/15/2022 14:27:10 With:ARLENE CASILLAS, Katia Hall, URL Address: [facility] [address] , [place] [address]- When: Unknown [facility] 04-26-2023 Hospital Discharge instructions Patient Education 09/18/2022 [...] cells. Follow these instructions at home: Take hkbg-owb-anaieef and prescription medicines only as told by [...] is important. Where to find more information [place] [employer] (ACS): cancer.org National Cancer [place] (NCI): cancer.gov Contact a health care provider [...] provider. Document Revised: 04/22/2022 Document Reviewed: 04/22/2022 [employer] Patient Education 2022 [employer]. Follow Up Care 08/26/2022 14:12:46 With:ARLENE CASILLAS, Katia Hall, URL Address: [facility] [address] , [facility] [place] [address]- When: Unknown [facility] 04-10-2023 NoteEXAM: XR CHEST 2 V HISTORY: Pre-surgery evaluation COMPARISON: None. TECHNIQUE: PA and lateral views of the chest. FINDINGS: The cardiomediastinal silhouette is normal. No focal consolidation is identified. There is no pneumothorax. No pleural effusion is noted. The osseous structures are intact. IMPRESSION: No acute cardiopulmonary process. Electronically authenticated by: CORKY FORD Date: 2022-09-02 14:17[facility]03-29-2023 Evaluation note* Encounter Date Diagnosis Assessment Notes [...] did discuss his upcoming appointment with Dr. Jacobs, urology specialist and he is able to go ahead from a vascular standpoint and have his bladder tumor removal as scheduled. [facility] Other 03-08-2023 Evaluation + Plan note Diagnostic Tests Pending * UroVysion Fish and Urine Cyto ([facility]) 07/31/22 [facility] 03-08-2023 Hospital Discharge instructions Patient Education 07/31/2022 [...] including vitamins, herbs, eye drops, creams, and fuet-abf-llueima medicines. Any problems you or family members [...] provider tells you to take them. Taking uakz-grm-kxxzzbv medicines, vitamins, herbs, and supplements. Tests You [...] 03/08/2010 Document Revised: 12/11/2018 Document Reviewed: 12/11/2018 [employer] Patient Education 2020 [employer]. Follow Up Care 07/25/2022 10:56:51 With:ARLENE CASILLAS, Katia Hall, URL Address: [facility] [address] [place] [address]- When: Unknown [facility] 03-02-2023 Evaluation note* Encounter Date [...] some bladder issues. I did call the [employer]. The device is compatible up to 3 Maggi for MRI. I explained this to the family and the patient. Jul, Other specified postprocedural states (ICD-10 - Z98.890) Jul, Personal history of other diseases of the circulatory system (ICD-10 - Z86.79) [facility] Other [facility] Evaluation note* Encounter Date Diagnosis Assessment [...] plan to do this percutaneously under MAC. [facility] Other 01-17-2023 Hospital Discharge instructions Patient Education [...] including vitamins, herbs, eye drops, creams, and iwal-pxv-isoputm medicines. Any problems you or family members [...] provider tells you to take them. ?Taking heti-dhe-lcqjofy medicines, vitamins, herbs, and supplements. Follow instructions [...] Follow these instructions at home: Medicines Take beos-rbw-ibfqnfh and prescription medicines only as told by [...] 05/09/2001 Document Revised: 05/04/2019 Document Reviewed: 05/04/2019 [employer] Patient Education 2020 [employer]. Follow Up Care 05/22/2022 13:37:28 With:[facility] Address: [address] [place] [address] Business (1) When: Unknown Comments:our merchandising professor will be contacting you for follow-up [facility] 01-12-2023 Evaluation note* Encounter Date Diagnosis [...] to proceed all his questions were addressed. [facility] Other 01-10-2023 Evaluation note* Encounter Date Diagnosis Assessment Notes Treatment Notes Treatment Clinical Notes May, Acute kidney injury (ICD-10 - N17.9) Acute kidney injury was likely postrenal from obstructive nephropathy. BUN peaked at 129 and creatinine 8.5 g deciliter. Kidney function improved gradually with placing Villarreal catheter. Serum creatinine is back to baseline. [...] with bladder mass. Patient was discharged with Villarreal catheter in place to follow-up with urology clinic as outpatient for further work-up of bladder mass and hydronephrosis May, Abdominal aortic aneurysm (AAA) without rupture, unspecified part (ICD-10 - I71.40) Patient was accidentally found to have large fusiform AAA. Patient follows with vascular surgery as outpatient this week May, Hyperlipidemia, unspecified hyperlipidemia type (ICD-10 - E78.5) Patient is on statin [facility] Other Evaluation + Plan note No data available for this section [facility] evaluation + Plan note Future Appointments Appointment Date:10/04/2022 10:00:00 AM Scheduled Provider: Location:[facility] Appointment Type:URO Nurse Visit [facility] Evaluation + Plan note Future Appointments Appointment Date:06/16/2023 10:00:00 AM Scheduled Provider: Location:[facility] Appointment Type:URO Nurse Visit Appointment Date:06/30/2023 01:30:00 PM Scheduled Provider:Katia JACOBS MD Location:[facility] Appointment Type:URO Office Visit Diagnostic Tests Pending * UroVysion Fish and Urine Cyto [facility]) [facility]ments Appointment Date:06/30/2023 01:30:00 PM Scheduled Provider:Katia JACOBS MD Location:[facility] Appointment Type:URO Office Visit [facility] evaluation + Plan note Future Appointments Appointment Date:07/01/2023 08:30:00 AM Scheduled Provider: Location:[facility] Appointment Type:URO Nurse Visit [facility] evalpbyuil note* Diagnosis Onset Date Resolution Status AAA [...] acute Vitamin B 12 deficiency acut e [facility] Work Phone: [email or web address] noteNo assessment information available [facility] Work Phone: [email or web address] noteNo InformationN[facility]Einstein [facility] [facility] Other Hiseydr general Narrative - Reported* Type Description Date [...] INJ URY, 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, 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 [facility] [facility] Other Hispaxj general Narrative - Reported* Type Description Date [...] INJ URY, 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, 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 [facility] Other History general Narrative - Reported* Type Description Date [...] 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 Hospitalization History SEE ABOVE [facility] Other Hospital Discharge instructions No data available for this section [facility] Progress note No data available for this section [facility] Summary Purpose Family History No Family History [...] section and content) DATE CREATED AUTHOR 05/12/2021 [facility] dical Specialist DATE CREATED AUTHOR AUTHOR'S ORGANIZ ATION 09/23/2022 [facility] DATE CREATED AUTHOR AUTHOR'S ORGANIZ ATION 01/23/2023 [facility] DATE CREATED AUTHOR AUTHOR'S ORGANIZ ATION 01/23/2023 [employer] DATE CREATED AUTHOR AUTHOR'S ORGANIZ ATION 07/13/2023 [facility] DATE CREATED AUTHOR AUTHOR'S ORGANIZ ATION 08/03/2023 [facility] DATE CREATED AUTHOR AUTHOR'S ORGANIZ ATION 08/05/2023 [facility] dical Specialists [facility] Patient Care team informatio n (unrecognized section [...] Active Margarito Valentine MD Admit Provider, Attending Simon abreu Active Team Status: Inactive Member Role Status Dates Stanley Emerson MD Primary Care Provider Active Heather Omalley PA-C Attending Provider Active Team Status: Inactive Member Role Status Dates Stanley Emerson MD Primary Care Provider Active Celia Griffin MD Attending Provider Active Teo Stokes MD [...] BE BASED ON THE PRIMARY CLINICAL RECORDS. [facility]. provides no warranty or guarantee of the accuracy or completeness of information in this document.
[2023-08-06 01:18] LABS: Bilirubin Urine NEGATIVE (NEGATIVE); Blood Urine LARGE (NEGATIVE); Clarity Urine CLEAR (CLEAR); Color Urine LT. YELLOW (YELLOW); Glucose Urine UA NEGATIVE (NEGATIVE); Ketones Urine NEGATIVE (NEGATIVE); Leukocyte Esterase Urine MODERATE (NEGATIVE); Nitrite Urine NEGATIVE (NEGATIVE); Protein Urine TRACE mg/dL (NEG/TRACE); Specific Gravity Urine <=1.005 (1.005-1.025); Urobilinogen Urine 0.2 EU/dL (0.2-1.0)
[2023-08-06 01:19] LABS: Urine Microscopic Indicated YES
[2023-08-06] MEDS: WATER FOR IRRIGATION, STERILE 1,000 ML IRRIG.SOLN 1000 ML IRR (01:22)
[2023-08-06 01:26] LABS: Bacteria Urine TRACE #/HPF (NONE SEEN); Cast Seen? NONE SEEN #/LPF (NONE SEEN); Crystals Seen? None Seen #/HPF (None Seen); Mucus Urine NONE SEEN (NONE SEEN); Squamous Epithelial Cell Urine RARE #/LPF (NONE/RARE)
== END 2023-08-06 01:47 | disposition home or self-care (01) ==
PROVIDERS: Emergency Provider Internal Medicine; PCP Family Medicine
DX: T83.9XXA Unspecified complication of genitourinary prosthetic device, implant and graft, initial encounter (principal); F17.210 Nicotine dependence, cigarettes, uncomplicated; R33.9 Retention of urine, unspecified; Z79.82 Long term (current) use of aspirin; Z79.899 Other long term (current) drug therapy
CPT/HCPCS: 51702; 51798; 81001; 87086; 99283

== ENCOUNTER 2023-09-05 10:55 | Outpatient (REF) | payer MEDICARE, OTHER, SELFPAY ==
--- OUTSIDE RECORDS SUMMARY | 2023-09-05 11:10 | XMS_ITS | CCD ---
Author Organization [facility] Care Team Providers Care Child Welfare Worker Name Role Phone Stanley Emerson Unavailable Unavailable Unavailable STANLEY EMERSON Primary Care Physician Unavail able MD Stanley Emerson Primary Care Provider [phone] MD Taz Barnes Admit Provider MD Margarito [...] Provider MD Margarito Valentine Attending Provider [phone] MD Margarito Valentine Admit Provider MOMO Schwab Attending Provider Carlene Kasper Unavailable HEMEYER ., DR PETERSON Primary Care Unavailable SAMUELS ., DR MONTALVO Admitting Unavailable SAMUELS ., DR MONTALVO Attending Unavailable ASMUELS ., DR MONTALVO Consulting Unavailable Corky Ford [...] Care Unavailable BAKHOUS, AZIZ Admitting Unavailable BAKHOUS, JONHIZ Attending Unavailable BAKHOUS, AZIZ Consulting Unavailable HEMEYER ., DR PETERSON Primary Care Unavailable HEMEYER ., DR PETERSON Attending Unavailable HEMEYER ., DR PETERSON Admitting Unavailable HEMEYER ., DR PETERSON Consulting Unavailable ZIEBER, DR LORENZO Hall Consulting Unavailable HEMEYER ., DR PETERSON Primary Care Unavailable VANDA ., MARILYN Admitting Unavailable VANDA ., AMRILYN Attending Unavailable VANDA ., MARILYN Consulting Unavailable [...] Stokes, Dr. Teo Poon Attending Araceli vailable Idania, Dr. Stanley Mercado Primary [facility] Unava ilable Hemeyer, Dr. Stanley Mercado Primary Care Unava ilable Hemeyer, Dr. Stanley Mercado Primary Care Unava ilable Stokes, Dr. Teo Poon Attending Araceli vailable Stokes, Dr. Teo Poon Referring Araceli vailable Hemeyer, Dr. Stanley Mercado Primary Care Unava ilable Samanthayer, Dr. Stanley Mercado Primary Care Unava ilable Stokes, Dr. Teo Poon Referring Araceli vailable Stokes, Dr. Teo Poon Attending Araceli vailable Stokes, Dr. Teo Poon Attending Araceli vailable Hemeyer, Dr. Stanley Mercado Primary [facility] Unava ilable Hemeyer, Dr. Stanley Mercado Primary Care Elliot Stokes, Dr. Teo Poon Attending Araceli valucille Stokes, Dr. Teo Poon Attending Araceli Emerson, Dr. Stanley Mercado Primary Care MD Stanley Little Primary Care Provider [phone] MD Celia Ramos Attending Provider MD Teo Stokes Referring Provider STANLEY EMERSON Attending Unavailable STANLEY EMERSON Attending Unavailable STANLEY EMERSON Attending Unavailable SAUMELS, KATIA R Referring Unavailable SAMUELS, Katia R Attending Unavailable SAMUELS, Katia R Admitting Unavailable SAMUELS, Katia R Referring Unavailable SAMUELS, Katia R Attending Unavailable SAMUELS, Katia R Admitting Unavailable SAMUELS, Katia R Referring Unavailable SAMUELS, Katia R Attending [...] SAMUELS, Katia R Attending Unavailable SAMUELS, Katia Hall Attending Unavailable MD Stanley Emerson Primary Care Provider MD Margarito Valentine Attending Provider Margarito Valentine Admitting UnavailMargarito Lara Attending Unavailkalyani e Stanley Emerson Primary Care Unavailable Teo Stokes Referring Unavailable Stanley Emerson Primary Care Unavailable Celia Ramos Admitting Unavailable Celia Ramos Attending Unavailable Allergies Allergy Classification Reported Allergen(s) Allergy Type Date of Onset Reaction(s) Facility (1 source) No Known Medication Allergies; Translations: [No Known Medication Allergies] Propensity to adverse reactions (disorder) [facility] Repository Medications Current Medications Medication Drug [...] take 1 tablet by mouth every hour Arcadia 325 mg-7.5 mg oral tablet 1 tab(s), Oral, Once, 1 tab(s), Refill(s) 0, Take 1 hour prior to procedure, [facility]/pharmacy #[id number], 187, cm, 03/11/23 13:44:00 EDT, Height/Length Dosing, 93, kg, 03/11/23 13:44:00 EDT, Weight Dosing Start Date: 05/06/23 Status: Ordered Albuterol (Eqv-ProAir HFA) 90 mcg/inh inhalation aerosol (13 sources) Start: 06-10-2022 Albuterol (Eqv-ProAir HFA) 90 mcg/inh inhalation aerosol Refill(s) 0 Start Date: 06/10/22 Status: Ordered amLODIPine 5 mg oral tablet (7 sources) Dihydropyridine Calcium Channel Alfredito Start: 06-10-2023 [...] Active folic acid 1 mg oral tablet (16 sources) Start: 05-22-2022 folic acid 1 mg Tab Refills(s) 0 Start Date: 06/10/22 Status: Ordered Start: 05-22-2022 End: 06-21-2022 take 1000 ug by mouth once daily at bedtime Folic Acid Active 1000 MCG PO Daily at bedtime June 21, 2022 11:02am Metoprolol (20 sources) beta-Adrenergic Alfredito Start: 06-10-2022 Metopr olol tartrate 50 mg Tab Refills(s) 0 Start Date: 06/10/22 Status: Ordered Start: 05-16-2022 take 50 mg by mouth twice kellen y Metoprolol Tartrate Active 50 MG PO Twice daily May 16, 2022 1:00am Multivitamin preparation (18 sources) Start: 07-31-2022 multivitamin D aily, Refill(s) 0 Start Date: 07/31/22 Status: Ordered Multivitamin Act raji 24 hr oxybutynin chloride 10 mg extended release oral tablet (1 source) Cholinergic Muscarinic Antagonist Start: 06-11-2023 take 1 tablet by mouth once daily oxybutynin 10 mg ER Tab 10 mg = 1 tab(s), Oral, Daily, # 14 tab(s), Refills(s) 0, Pharmacy: [facility]/pharmacy #[id number], 187, cm, 06/10/23 13:43:00 EST, Height/Length [...] (20 sources) HMG-CoA Reductase Inhibitor Start: 05-16-2022 take 20 mg by mouth at bedtime Simvastatin Active 20 MG PO Bedtime May 16, 2022 1:00am vitamin b12 1 mg oral capsule (15 sources) Vitamin B12 Start: 05-22-2022 End: 06-21-2022 take 1000 ug by mouth once daily at bedtime Cyanocobalamin (Vitamin B-12) Active 1000 MCG PO Daily at bedtime June 21, 2022 11:02am Cyanocobalamin 1 000 MCG as directed Orally Active take 1 tablet by mouth once kellen y B-12 1000 MCG Oral Tablet TAKE 1 TABLET DAILY DIRECTED. Quantity: 0 Refills: 0 Ordered: 03-Jun-2022 DO Active Completed/Discontinued Medications Medication Drug Class(es) Dates Sig (Normalized) Sig (Original) [id number] 200 actuat albuterol 0.09 mg/actuat metered dose inhaler (17 sources) beta2-Adrenergic Agonist Start: 06-03-2022 Albuterol Sulfate HFA 108 (90 Base) MCG/ACT Inhalation Aerosol Solution Quantity: 54 Refills: 0 Ordered: 03-Jun-2022 DO Start : 03-Jun-2022 Active Start: 05-16-2022 take 1 puff(s) by in halation three times daily Albuterol Sulfate Active 2 PUFF INHALATION Three times daily May 16, 2022 1:00am take 2 puff(s) by in halation every [...] aspirin 81 mg delayed release oral tablet (10 sources) Platelet Aggregation Inhibitor, Nonsteroidal Anti-inflammatory Drug Start: 01-22-2023 take 1 tablet by mouth once daily Aspirin 81 MG Oral Tablet Delayed Release TAKE 1 TABLET DAILY. Quantity: 90 Refills: 3 Ordered: 22-Jan-2023 Teo Stokes MD Start : 22-Jan-2023 Active Start: 05-16-2022 End: 06-21-2022 take 81 mg by mouth once daily Aspirin Discontinued 81 MG PO Daily May 16, 2022 1:00am June 21, 2022 11:01am ciprofloxacin 250 mg oral tablet (6 sources) Quinolone Antimicrobial Start: 12-03-2022 take 1 tablet by mouth once daily Cipro 250 mg Tab 250 mg = 1 tab(s), Oral, Daily, Take 1 tablet the day before the procedure and 1 tablet after the procedure, # 6 tab(s), Refills(s) 0, Pharmacy: [facility]/pharmacy #[id number], 187, cm, 09/18/22 14:39:00 EDT, Height/Length Dosing, 93, kg, 09/18/22 14:39:00 EDT, Weight Dosing Start Date: 12/03/22 Status: Ordered Start: 07-25-2022 take 1 tablet by charlene once daily Cipro 250 mg Tab 250 mg = 1 tab(s), Oral, Daily, Take 1 tablet the day before the procedure and 1 tablet after the procedure, # 2 tab(s), Refills(s) 0, Pharmacy: [facility]/pharmacy #[id number], 187, cm, 06/11/22 9:11:00 EST, Height/Length [...] Onset: 05-16-2022 Chronic Calculus of urinary tract (19 sources) Urinary bladder stone; Translations: [Calculus in bladder] Onset: 06-11-2022 Episodic Cancer of bladder (14 sources) Malignant tumor of urinary bladder; Translations: [Malignant neoplasm of bladder, unspecified] Onset: 09-18-2022 Chronic Cancer of bladder (3 sources) History of malignant neoplasm of bladder; Translations: [Personal history of malignant neoplasm of bladder] Onset: 12-10-2022 Episodic Cancer; other and unspecified primary (9 sources) H/O: malignant neoplasm 12-10-2022 Episodic Chronic kidney disease (10 sources) Chronic kidney disease stage 3B ; Translations: [Chronic kidney disease, stage 3b] Onset: 09-04-2022 Chronic Chronic kidney disease (4 sources) Chronic kidney disease; Translations: [CHRONIC KIDNEY DISEASE STAGE 3B] Onset: 09-10-2022 Chronic obstructive pulmonary disease and bronchiectasis (12 sources) Pulmonary emphysema; Translations: [Simple chronic bronchitis] [...] unspecified hyperlipidemia] Onset: 09-23-2022 Chronic Essential hypertension (20 sources) Hypertensive disorder; Translations: [Unspecified essential hypertension] Onset: 09-23-2022 09-11-2022 Chronic Fluid and electrolyte disorders (20 sources) Hyperkalemia; Translations: [Metabolic acidosis] Onset: 05-16-2022 06-10-2022 Episodic Genitourinary symptoms and ill-defined conditions (20 sources) Retention of urine; Translations: [Retention of urine, unspecified] Onset: 06-10-2022 Episodic Hyperplasia of prostate (13 sources) Benign prostatic hypertrophy with outflow obstruction; [...] OF BLADDER] Onset: 09-08-2022 Episodic Nutritional deficiencies (20 sources) Cobalamin deficiency; Translations: [Deficiency of other specified B group vitamins] 05-22-2022 Episodic Other aftercare (1 source) Other care home (current) drug therapy; Translations: [OTH POLY PACKER AND HEAT SEALER CURRENT DRUG THERAPY] Onset: 09-23-2022 Episodic Other aftercare (1 source) FPC (current) use of anticoagulants; Translations: [POLY PACKER AND HEAT SEALER CURRNT USE ANTICOAGULANTS] Onset: 09-08-2022 Episodic Other and ill-defined cerebrovascular disease (13 sources) Cerebral ischemia Onset: 05-16-2022 06-10-2022 Chronic [...] Chronic Other diseases of bladder and urethra (19 sources) Mass of urinary bladder; Translations: [Other specified disorders of bladder] 06-10-2022 Chronic Other diseases of bladder and urethra (4 sources) Other specified disorders of bladder; Translations: [Other specified disorders of bladder] 05-22-2022 Chronic Other diseases of bladder and urethra (12 sources) Lesion of bladder 07-31-2022 Chronic Other diseases of bladder and urethra (1 source) Diverticulum of bladder; Translations: [DIVERTICULUM OF BLADDER] Onset: 09-23-2022 Chronic Other diseases of bladder and urethra (1 source) Bladder disorder, unspecified; Translations: [BLADDER DISORDER UNSPECIFIED] Onset: 09-08-2022 Chronic Other diseases of kidney and ureters (15 sources) Hydroureter; Translations: [Hydroureter] Onset: 06-11-2022 Episodic Other diseases of kidney and ureters (2 sources) Disorder of kidney and/or ureter; Translations: [Disorder of kidney and ureter, unspecified] Onset: 06-11-2022 Episodic Other diseases of kidney and ureters (13 sources) Hydronephrosis 06-10-2022 Episodic Other diseases of kidney and ureters (13 sources) Kidney lesion 06-11-2022 Episodic Other diseases of kidney and ureters (6 sources) Bilateral hydronephrosis ; Translations: [Unspecified hydronephrosis] 05-22-2022 Episodic Other diseases of kidney and ureters (1 source) Urinary tract obstruction; Translations: [Other obstructive and reflux uropathy] Onset: 06-10-2023 Episodic Other diseases of veins and lymphatics (1 source) Venous insufficiency (chronic) (peripheral); Translations: [VENOUS INSUFF CHRONIC PERIPHERAL] Onset: 09-23-2022 Episodic Other gastrointestinal disorders (6 sources) Diarrhea; Translations: [Diarrhea, unspecified] 05-16-2022 Episodic Other nervous system disorders (6 sources) 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; Translations: [Circadian rhythm sleep disorder, unspecified type] 05-20-2022 Chronic Other nervous system disorders (6 sources) Metabolic encephalopathy; Translations: [Metabolic encephalopathy] 05-16-2022 [...] ADULT] Onset: 09-23-2022 Episodic Residual codes; unclassified (6 sources) Tobacco user; Translations: [Tobacco use] 05-22-2022 [...] 1/2 dozen cigarettes ; Transient cerebral ischemia (13 sources) Transient cerebral ischemia; Translations: [Unspecified transient cerebral ischemia] 05-16-2022 Chronic Unclassified (1 source) ABDOMINAL AA W/O RUPTURE UNSPCIFIED; Translations: [ABDOMINAL AA W/O RUPTURE UNSPCIFIED] Onset: 09-23-2022 Unclassified (1 source) CONTACT W/AND (SUSP) EXPOS COVID-19; Translations: [CONTACT W/AND (SUSP) EXPOS COVID-19] Onset: 05-22-2022 Unclassified (1 source) Abdominal aortic aneurysm, without rupture, unspecified; Translations: [Abdominal aortic aneurysm, without rupture, unspecified] Onset: 08-18-2023 Urinary tract infections (11 sources) Urinary tract infectious disease; Translations: [Urinary tract infection, site not specified] Onset: 09-16-2022 05-16-2022 Episodic Viral infection (4 sources) COVID-19; Translations: [COVID-19] Onset: 01-04-2022 Past or Other Problems Problem Classification Problem Date Documented Da te Episodic/Chronic Acute and unspecified renal failure (20 sources) Acute renal failure syndrome; Translations: [Acute kidney failure, unspecified] Onset: 05-16-2022 Episodic Malaise and fatigue (4 sources) Other fatigue; Translations: [OTHER FATIGUE] Onset: 05-15-2022 Episodic Nausea and vomiting (1 source) Vomiting, unspecified; Translations: [VOMITING UNSPECIFIED] Onset: 05-23-2022 Episodic Other aftercare (1 source) FPC (current) use of aspirin; Translations: [LONGTERM 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] Onset: 05-22-2022 Episodic [...] Test Name Value Interpretation Reference Range Facility CT abdomen pelvis wo conon 0 08-18-2023 CT abdomen pelvis wo con [facility] Main Tok [address] [place] [address] CT Scan Report Signed Patient: Alex Anderson MR#: [id number] 38 : 1945 Acct:[id number] Age/Sex: 77 / M ADM Date: 08/18/23 Loc: CT Room: Type: [facility] Attending Dr: Margarito Valentine MD Copies to: Margarito Valentine MD Ordering Provider: Margarito Valentine MD Date of Service: 08/18/23 CT/CT abdomen pelvis wo con: I71.4 CT ABDOMEN AND PELVIS WITHOUT INTRAVENOUS CONTRAST: CLINICAL HISTORY: Follow-up stent. COMPARISON: CT abdomen and pelvis 08/16/2022 TECHNIQUE: Spiral images were obtained through the abdomen and pelvis without intravenous contrast. This CT exam was performed using one or more following dose reduction techniques: Automated exposure control, adjustment of the mA and/or kV according to patient size, or use of iterative reconstruction technique. FINDINGS: Lung Bases: [Bibasilar scarring.] Organs:Suboptimal evaluation due to lack of IV contrast. Liver cysts. Gallbladder pancreas and adrenal glands appear unremarkable. Splenic granuloma. Bilateral nephrolithiasis, largest stone measuring 4 mm. Cystic changes involving the left kidney. Endovascular repair of a fusiform type infrarenal abdominal aortic aneurysm suboptimally evaluated without IV contrast. The aniak aneurysmal sac has decreased in size now measuring 5.3 cm in greatest axial dimension.[ GI: Stomach is grossly unremarkable. Small bowel appears nondilated. No acute colonic abnormality.[ Pelvis:[Prostatomegaly. Zapien catheter is in place. There appears to be wall thickening and surrounding inflammatory changes involving the urinary bladder.] Peritoneum/Retroperitoneum :No free air, free fluid or lymphadenopathy.[ Abd wall/Bones:Abdominal wall demonstrates no acute findings. Osseous structures demonstrate degenerative change.[ CT/CT abdomen pelvis wo con IMPRESSION: 1. Endovascular repair of a fusiform type infrarenal abdominal aortic aneurysm with interval decrease of the aniak aneurysmal sac since the prior CTA study. The stent is suboptimally evaluated due to lack of IV contrast. 2. Prostatomegaly with Zapien catheter in place. There appears to be urinary bladder wall thickening and inflammatory changes suspicious for cystitis. Correlation with urinalysis is recommended. Impression dictated by: Rogelio Agustin Jr., DGagan08/18/2023 3:18 PM Dictation Location: [place] [address] Transcribed By: [facility] 08/18/23 1518 Dictated By: Rogelio Agustin Jr, DO 08/18/23 1503 Signed By: 08/18/23 1518 [facility] Creatinine (Bld) [Mass/Vol]O rdered By: Margarito Valentine on 08-18-2023 Creatinine [Mass/Vol] 2.4 mg/dL 0.6-1.3 [facility] Comment on above: ER/ESD physician is notified/shown all ISTAT results.Critical values may be confirmed by laboratory testing ifdeemed necessary by ER attending doctor. ISTAT XRay CREon 08-18-2023 Creatinine [Mass/Vol] 2.4 mg/dL High 0.6-1.3 [facility] Comment on above: Result Comment: ER/E SD physician is notified/shown all ISTAT results. Critical values may be confirmed by laboratory testing if deemed necessary by ER attending doctor. Performed By: #### V [id number], MANDI, B12, MG, PHOS, CMP, FOL, FE and TIBC, URIC #### [facility] [address] [place] [address] ISTAT GFR 26.776 [facility] Comment on above: Result Comment: PERF ORMED BY: [place] [address] PATHOLOGIST HEAD OF [employer] OREN OWEN M.D. Performed By: #### V [id number], MANDI, B12, MG, PHOS, CMP, FOL, FE and TIBC, URIC #### [facility] [address] [place] [address] No Panel InformationOrdered By: Margarito Valentine on 08-18-2023 Bedside Estimated GFR (eGFR) 26.776 [facility] Reminderson 08-14-2023 Reminders - From: Dana Rivas To: EU - Recalls Samuels; Sent: 09/18/2022 15:49:30 EDT Show up: 01/24/2023 15:49:00 EDT Subject: Cysto/FISH/cytol Due Date/Time: 02/10/2023 15:49:00 EDT Reminder/Recall Patient needs scheduled for 3 mo Cysto/FISH/cytol (bt ck) in Feb 2023 Patient sched for 03/11/23 in [place] office. Pt will be due in May 2023.LG Patient had cysto/Rezum on 06/10/23. He will be due in August 2023.LG Patient sched for 09/09/23 in [place] office.LG Normal [facility] ED Note-Physicianon 08-07-19 ED Note-Physician [id number]#1.00TIFF [facility] ED Note-Physicianon 08-06-19 ED Note-Physician [id number]#1.00TIFF Normal [facility] ED Note-Physician [id number]#1.00TIFF [facility] ED Note-Physician [id number]#1.00TIFF Normal [facility] Lab Reportson 08-06-2023 Lab Reports [id number]#1.00TIFF Normal [facility] Lab Reports [id number]#1.00TIFF [facility] Reminderson 08-01-2023 Reminders - From: Dana Rivas To: EU - Recalls Samuels; Cc: Dana Rivas; Sent: 03/14/2023 08:18:18 EDT Show up: 07/25/2023 08:18:00 EST Subject: cysto/fish/cytol Due Date/Time: 08/11/2023 08:18:00 EDT Reminder/Recall Patient is due in August 2023 for 3 month cysto/fish/cytol Patient sched for 09/09/23 in [place] office. he will be due in November 2023.LG [facility] Physician Orderon 07-04-2023 Physician Order [id number]#1.00TIFF [facility] Patient Educationon 06-30-19 Patient Education Urology [...] these instructions at home: Medicines ? Take etwg-wob-ihnwshw and prescription medicines only as told by [...] provider. Document Revised: 01/31/2021 Document Reviewed: 01/31/2021 OM Latam Patient Education ? 2022 [facility]. Carmella Tanner [facility] Urology Office/Clinic Noteon 06-30-2023 Urology Office/Clinic [...] [facility] [address], [place] [address]- [phone] Additional Instructions: 1 day for catheter removal [...] Use:. Cigarettes, (more content not included)... Normal [facility] Comment on above: Result Comment: Elec tronically Signed By: Katia SAMUELS MD\.br\Date and Time Signed: 06/30/23 14:32 EST\.br\Electronically Co-Signed By: Apple Escoto\.br\Date and Time Co-Signed: 06/30/23 14:30 EST [facility] Fish and Urine Cyt o ([facility])on 06-26-2023 [facility] Revision Information Invalid Interpretation Code [facility] Comment on above: Result Comment: Brayan ection Reason -[ Fredi Stephen, 06/26/23 - 10:32 ] Corrected report issued to update PMS/PWS. The diagnosis remains unchanged. Correction Notes - Performed By: #### 1 [id number] ####[facility] [id number] [place] [address] Ambulatory Visit Summaryon 0 06-16-2023 Ambulatory Visit Summary ALEX ANDERSON :1945 Visit Date:06/16/2023 Ambulatory Visit Instructions Your Diagnosis BPH with urinary obstruction Your Care Team Attending Physician - Katia SAMUELS MD Primary Care Physician - IDANIA CASILLAS, STANLEY Rich This Is Your Medications List acetaminophen-hydrocodone (Arcadia 325 mg-7.5 mg oral tablet) albuterol (Albuterol (Eqv-ProAir HFA) 90 mcg/inh inhalation aerosol) amlodipine metoprolol (Metoprolol tartrate 50 mg Tab) multivitamin oxybutynin (oxybutynin 10 mg ER Tab) simvastatin (simvastatin 20 mg Tab) Procedures Performed Cystoscope (03/11/2023), TURBT - Transurethral resection of bladder tumor (09/12/2022), Cystoscopy (07/31/2022). What to do next Scheduled Follow-Up Appointments Friday 1:30 PM EST With: Katia SAMUELS MD Where: [facility] Consent for Procedure/Surger yon 06-10-2023 Consent for Procedure/Surgery [id number]#1.00TIFF [facility] Consent for Treatmenton 05-26 Consent for Treatment [id number]#1.00TIFF [facility] IntraOperative Documentson 0 06-10-2023 IntraOperative Documents [id number]#1.00TIFF [facility] Main OR Intraoperative Recor don 06-10-2023 Main OR Intraoperative Record IntraOp Document Type FTURO Summary Primary Physician: Katia SAMUELS MD Finalized Date/Time: 06/10/23 15:18:46 Pt. Name: ALEX ANDERSON Paloma/Sex: 1945 Male Med Rec #: [id number] Physician: Katia SAMUELS MD Financial #: [id number] Pt. Type: O Room/Bed: / Admit/Disch: 06/10/23 12:50:19 - Institution: Case Times FTURO Entry 1 Patient Times In Room 06/10/23 14:32:00 Out Room 06/10/23 15:13:00 Procedure Times Start 06/10/23 14:40:00 Stop 06/10/23 15:07:00 Anesthesia Times Last Modified By: Clifford CHAN, WOLFGANG, Gayatri 06/10/23 15:07:12 Case Attendance FTURO Entry 1 Entry 2 Entry 3 Case Attendee ARLENE CASILLAS, Katia Horton RN, KATEOR, Kathleen Lai Role Performed Surgeon - Primary Flight Director - Primary Scrub - Primary Time In 06/10/23 14:32:00 06/10/23 14:32:00 06/10/23 14:32:00 Time Out 06/10/23 15:13:00 06/10/23 15:13:00 06/10/23 15:13:00 Procedure CYSTOSCOPY LOCAL CYSTOSCOPY LOCAL CYSTOSCOPY LOCAL REZUM(.) REZUM(.) REZUM(.) Daisy piña lawn mower mechanic in room orienting Last Modified By: Clifford [...] BPH WITH OBSTRUCTION Last Modified By: Clifford CHANWOLFGANG Ruthann 06/10/23 13:11:24 Post-Care Text: The patient [...] Position Verified Availability Equipment, Medication Time Out ARLENE CASILLAS, Katia Hall, Verified (If Participants WOLFGANG Horton RN, Applicable) Ming Mendieta Jessica D Time Out [...] WOLFGANG Horton RN, Ruthann 06/10/23 15:18 Normal [facility] Main OR Preoperative Recordo n 06-10-2023 Main OR Preoperative Record Holding Area Document Type FTURO Summary Primary Physician: Katia SAMUELS MD Finalized Date/Time: 06/10/23 14:49:26 Pt. Name: ALEX ANDERSON /Sex: 1945 Male Med Rec #: [id number] Physician: Katia SAMUELS MD Financial #: [id number] Pt. Type: O Room/Bed: / Admit/Disch: 06/10/23 [...] GLASSES; BILATERAL Limitations: UP AD JOSIAH. PT TELLER Comment: CATARACT LENS IMPLANTS Complaints of Pain: [...] WOLFGANG Horton RN, Ruthann 06/10/23 14:49 Normal [facility] Operative Reporton Operative Report Patient: MELISSA [...] in satisfactory condition, Discharge instructions are provided. [facility] Comment on above: Result Comment: Elec [...] with antibiotic coverage, Follow up arranged. [facility] [facility] Comment on above: Result Comment: Elec tronically Signed By: Katia SAMUELS MD.br\Date and Time Signed: 06/10/23 15:20 EST [facility] ([facility])on 06-10-2023 [facility] Method of Extraction Catheterized Normal [facility] Comment on above: Performed By: #### 1 [id number] ####[facility] [id number] [place] [address] [facility] Number of Jars 1 Invalid Interpretation Code [facility] Comment on above: Performed By: #### 1 [id number] ####[facility] [id number] [place] [address] [facility] Specimen Urine Normal [facility] Comment on above: Performed By: #### 1 [id number] ####[facility] [id number] [place] [address] [facility] Type of Service Technical Only Normal [facility] Comment on above: Performed By: #### 1 [id number] ####[facility] [id number] [place] [address] Alanine aminotransferase [En zymatic activity/volume] in Serum or PlasmaOrdered By: Celia Ramos on 04-08-2023 ALT [Catalytic activity/Vol] 17 U/L 7-52 [facility] Albumin [Mass/volume] in Ser um or Plasma by Bromocresol green (BCG) dye binding methoOrdered By: Celia Ramos on 04-08-2023 Albumin BCG dye [Mass/Vol] 4.2 g/dL 3.5-5.7 [facility] Alkaline phosphatase [Enzyma tic activity/volume] in Serum or PlasmaOrdered By: Celia Ramos on 04-08-2023 ALP [Catalytic activity/Vol] 72 U/L 34-104 [facility] Aspartate aminotransferase [ Enzymatic activity/volume] in Serum or PlasmaOrdered By: Celia Ramos on 04-08-2023 AST [Catalytic activity/Vol] 16 U/L 13-39 [facility] Automated erythrocytes count in urine sediment (number/area)Ordered By: Celia Ramos on 04-08-2023 RBC Auto (Urine sed) [#/Area] 3-4 [HPF] 0-4 [facility] Automated leukocytes count i n urine sediment (number/area)Ordered By: Celia Ramos on 04-08-2023 WBC Auto (Urine sed) [#/Area] 50-100 [HPF] 0-4 [facility] Bilirubin Test strip Ql (U)O rdered By: Celia Ramos on 04-08-2023 Bilirubin Ql (U) Negative Negative [facility] Bilirubin.total [Mass/volume ] in Serum or PlasmaOrdered By: Celia Ramos on 04-08-2023 Bilirubin [Mass/Vol] 0.5 mg/dL 0.3-1.[address] [facility] Calcium [Mass/volume] in Ser um or PlasmaOrdered By: Celia Ramos on 04-08-2023 Calcium [Mass/Vol] 9.3 mg/dL 8.6-10.3 [facility] Carbon dioxide, total [Moles /volume] in Serum or PlasmaOrdered By: Celia Ramos on 04-08-2023 CO2 [Moles/Vol] 31.6 mmol/L 21.0-31.0 [facility] Chloride [Moles/volume] in S marium or PlasmaOrdered By: Celia Ramos on 04-08-2023 Chloride [Moles/Vol] 107 mmol/L 98-[address] [facility] Cholesterol [Mass/volume] in Serum or PlasmaOrdered By: Teo Stokes on 04-08-2023 Cholesterol [Mass/Vol] 107 mg/dL 140-200 [facility] Comment on above: Chol less than 200 m g/dl low riskChol 201-239 mg/dl borderline riskChol 240 mg/dl and greater high risk Cholesterol in LDL Calc [Mas s/Vol]Ordered By: Teo Stokes on 04-08-2023 Cholesterol in LDL [Mass/Vol] 47 mg/dL 0-100 [facility] Comment on above: LDL ATP III CLASSIFI CATIONLDL less than 100 mg/dL OptimalLDL 100-129 mg/dL Near or above optimalLDL 130-159 mg/dL Borderline highLDL 160-189 mg/dL HighLDL greater than 189 mg/dL Very high Cholesterol in VLDL Calc [Ma ss/Vol]Ordered By: Teo Stokes on 04-08-2023 Cholesterol in VLDL [Mass/Vol] 26 mg/dL [facility] Color Auto (U)Ordered By: Jonh Ramos on 04-08-2023 Color (U) Yellow Yellow [facility] Comprehensive Metabolic Pane howard 04-08-2023 Albumin [Mass/Vol] 4.2 g/dL Normal 3.5-5.7 [facility] Comment on above: Order Comment: Reaso n for Exam Acute kidney injury;Chronic kidney disease, stage 3b;Bilater Performed By: #### V [id number], MANDI, B12, MG, PHOS, CMP, FOL, FE and TIBC, URIC #### [facility] [address] Albumin/Globulin [Mass ratio] 1.5 {ratio} Normal [facility] Comment on above: Order Comment: Reaso n for Exam Acute kidney injury;Chronic kidney disease, stage 3b;Bilater Performed By: #### V [id number], MANDI, B12, MG, PHOS, CMP, FOL, FE and TIBC, URIC #### [facility] [address] ALP [Catalytic activity/Vol] 72 U/L Normal 34-104 [facility] Comment on above: Order Comment: Reaso n for Exam Acute kidney injury;Chronic kidney disease, stage 3b;Bilater Performed By: #### V [id number], MANDI, B12, MG, PHOS, CMP, FOL, FE and TIBC, URIC #### [facility] [address] ALT [Catalytic activity/Vol] 17 U/L Normal 7-52 [facility] Comment on above: Order Comment: Reaso n for Exam Acute kidney injury;Chronic kidney disease, stage 3b;Bilater Performed By: #### V [id number], MANDI, B12, MG, PHOS, CMP, FOL, FE and TIBC, URIC #### [facility] [address] [place] [address] Anion gap [Moles/Vol] 8.9 mmol/L Normal 6.0-15.0 [facility] Comment on above: Order Comment: Reaso n for Exam Acute kidney injury;Chronic kidney disease, stage 3b;Bilater Performed By: #### V [id number], MANDI, B12, MG, PHOS, CMP, FOL, FE and TIBC, URIC #### [facility] [address] AST [Catalytic activity/Vol] 16 U/L Normal 13-39 [facility] Comment on above: Order Comment: Reaso n for Exam Acute kidney injury;Chronic kidney disease, stage 3b;Bilater Performed By: #### V [id number], MANDI, B12, MG, PHOS, CMP, FOL, FE and TIBC, URIC #### [facility] [address] Bilirubin [Mass/Vol] 0.5 mg/dL Normal 0.3-1.[address] [facility] Comment on above: Order Comment: Reaso n for Exam Acute kidney injury;Chronic kidney disease, stage 3b;Bilater Performed By: #### V [id number], MANDI, B12, MG, PHOS, CMP, FOL, FE and TIBC, URIC #### [facility] [address] Calcium [Mass/Vol] 9.3 mg/dL Normal 8.6-10.3 [facility] Comment on above: Order Comment: Reaso n for Exam Acute kidney injury;Chronic kidney disease, stage 3b;Bilater Performed By: #### V [id number], MANDI, B12, MG, PHOS, CMP, FOL, FE and TIBC, URIC #### [facility] [address] Chloride [Moles/Vol] 107 mmol/L Normal 98-[address] [facility] Comment on above: Order Comment: Reaso n for Exam Acute kidney injury;Chronic kidney disease, stage 3b;Bilater Performed By: #### V [id number], MANDI, B12, MG, PHOS, CMP, FOL, FE and TIBC, URIC #### [facility] [address] CO2 [Moles/Vol] 31.6 mmol/L High 21.0-31.0 [facility] Comment on above: Order Comment: Reaso n for Exam Acute kidney injury;Chronic kidney disease, stage 3b;Bilater Performed By: #### V [id number], MANDI, B12, MG, PHOS, CMP, FOL, FE and TIBC, URIC #### [facility] [address] Creatinine [Mass/Vol] 1.41 mg/dL High 0.70-1.30 [facility] Comment on above: Order Comment: Reaso n for Exam Acute kidney injury;Chronic kidney disease, stage 3b;Bilater Performed By: #### V [id number], MANDI, B12, MG, PHOS, CMP, FOL, FE and TIBC, URIC #### [facility] [address] GFR/1.73 sq M.predicted MDRD (S/P/Bld) [Vol rate/Area] 50.692 mL/min/{1.73_m2} Normal [facility] Comment on above: Order Comment: Reaso n for Exam Acute kidney injury;Chronic kidney disease, stage 3b;Bilater Performed By: #### V [id number], MANDI, B12, MG, PHOS, CMP, FOL, FE and TIBC, URIC #### [facility] [address] Globulin (S) [Mass/Vol] 2.8 g/dL Normal [facility] Comment on above: Order Comment: Reaso n for Exam Acute kidney injury;Chronic kidney disease, stage 3b;Bilater Performed By: #### V [id number], MANDI, B12, MG, PHOS, CMP, FOL, FE and TIBC, URIC #### [facility] [address] Glucose [Mass/Vol] 107 mg/dL High 70-100 [facility] Comment on above: Order Comment: Reaso n for Exam Acute kidney injury;Chronic kidney disease, stage 3b;Bilater Result Comment: [facility] Glucose Reference Range is dependent on time and content of last meal. Glucose of more than 200 mg/dL in a nonstressed, ambulatory subject supports the diagnosis of Diabetes Mellitus. ADA recommended reference range Performed By: #### V [id number], MANDI, B12, MG, PHOS, CMP, FOL, FE and TIBC, URIC #### [facility] [address] Potassium [Moles/Vol] 4.5 mmol/L Normal 3.5-5.1 [facility] Comment on above: Order Comment: Reaso n for Exam Acute kidney injury;Chronic kidney disease, stage 3b;Bilater Performed By: #### V [id number], MANDI, B12, MG, PHOS, CMP, FOL, FE and TIBC, URIC #### [facility] [address] Protein [Mass/Vol] 7.0 g/dL Normal 6.4-8.9 [facility] Comment on above: Order Comment: Reaso n for Exam Acute kidney injury;Chronic kidney disease, stage 3b;Bilater Performed By: #### V [id number], MANDI, B12, MG, PHOS, CMP, FOL, FE and TIBC, URIC #### [facility] [address] Sodium [Moles/Vol] 143 mmol/L Normal 136-145 [facility] Comment on above: Order Comment: Reaso n for Exam Acute kidney injury;Chronic kidney disease, stage 3b;Bilater Performed By: #### V [id number], MANDI, B12, MG, PHOS, CMP, FOL, FE and TIBC, URIC #### [facility] [address] Urea nitrogen [Mass/Vol] 27 mg/dL High 7-25 [facility] Comment on above: Order Comment: Reaso n for Exam Acute kidney injury;Chronic kidney disease, stage 3b;Bilater Performed By: #### V [id number], MANDI, B12, MG, PHOS, CMP, FOL, FE and TIBC, URIC #### [facility] [address] Creatinine [Mass/volume] in Serum or PlasmaOrdered By: Celia Ramos on 04-08-2023 Creatinine [Mass/Vol] 1.41 mg/dL 0.70-1.30 [facility] Creatinine [Mass/volume] in UrineOrdered By: Celia Ramos on 04-08-2023 Creatinine (U) [Mass/Vol] 90.0 mg/dL 14.0-26.0 [facility] Dipstick and Microscopicon 1 06-08-2022 Appearance (U) Cloudy Critically abnormal Clear [facility] Comment on above: Order Comment: Reaso n for Exam Acute kidney injury;Chronic kidney disease, stage 3b;Bilater Performed By: #### V [id number], MANDI, B12, MG, PHOS, CMP, FOL, FE and TIBC, URIC #### [facility] [address] Bacteria,Urine 4+ High None Seen [facility] Comment on above: Order Comment: Reaso n for Exam Acute kidney injury;Chronic kidney disease, stage 3b;Bilater Performed By: #### V [id number], MANDI, B12, MG, PHOS, CMP, FOL, FE and TIBC, URIC #### [facility] [address] [place] [address] [place] Bilirubin,Urine Negative Normal Negative [facility] Comment on above: Order Comment: Reaso n for Exam Acute kidney injury;Chronic kidney disease, stage 3b;Bilater Performed By: #### V [id number], MANDI, B12, MG, PHOS, CMP, FOL, FE and TIBC, URIC #### [facility] [address] Color (U) Yellow Normal Yellow [facility] Comment on above: Order Comment: Reaso n for Exam Acute kidney injury;Chronic kidney disease, stage 3b;Bilater Performed By: #### V [id number], MANDI, B12, MG, PHOS, CMP, FOL, FE and TIBC, URIC #### [facility] [address] Glucose Ql (U) Normal Normal Normal [facility] Comment on above: Order Comment: Reaso n for Exam Acute kidney injury;Chronic kidney disease, stage 3b;Bilater Performed By: #### V [id number], MANDI, B12, MG, PHOS, CMP, FOL, FE and TIBC, URIC #### [facility] [address] Hyaline Casts,Urine 9-19 High 0-8 [facility] Comment on above: Order Comment: Reaso n for Exam Acute kidney injury;Chronic kidney disease, stage 3b;Bilater Result Comment: PERF ORMED BY: [place] [address] PATHOLOGIST [employer] OREN OWEN M.D. Performed By: #### V [id number], MANDI, B12, MG, PHOS, CMP, FOL, FE and TIBC, URIC #### [facility] [address] Ketones Ql (U) Negative Normal Negative [facility] Comment on above: Order Comment: Reaso n for Exam Acute kidney injury;Chronic kidney disease, stage 3b;Bilater Performed By: #### V [id number], MANDI, B12, MG, PHOS, CMP, FOL, FE and TIBC, URIC #### [facility] [address] Leukocyte esterase Test strip Ql (U) 4+ High Negative [facility] Comment on above: Order Comment: Reaso n for Exam Acute kidney injury;Chronic kidney disease, stage 3b;Bilater Performed By: #### V [id number], MANDI, B12, MG, PHOS, CMP, FOL, FE and TIBC, URIC #### [facility] [address] Nitrite,Urine Positive High Negative [facility] Comment on above: Order Comment: Reaso n for Exam Acute kidney injury;Chronic kidney disease, stage 3b;Bilater Performed By: #### V [id number], MANDI, B12, MG, PHOS, CMP, FOL, FE and TIBC, URIC #### [facility] [address] Occult Blood,Urine 1+ High Negative [facility] Comment on above: Order Comment: Reaso n for Exam Acute kidney injury;Chronic kidney disease, stage 3b;Bilater Result Comment: PERF ORMED BY: [place] [address] PATHOLOGIST [employer] OREN OWEN M.D. Performed By: #### V [id number], MANDI, B12, MG, PHOS, CMP, FOL, FE and TIBC, URIC #### [address] pH (U) 7.0 [pH] Normal 5.0-9.0 [facility] Comment on above: Order Comment: Reaso n for Exam Acute kidney injury;Chronic kidney disease, stage 3b;Bilater Performed By: #### V [id number], MANDI, B12, MG, PHOS, CMP, FOL, FE and TIBC, URIC #### [address] Protein,Urine Trace High Negative [facility] Comment on above: Order Comment: Reaso n for Exam Acute kidney injury;Chronic kidney disease, stage 3b;Bilater Performed By: #### V [id number], MANDI, B12, MG, PHOS, CMP, FOL, FE and TIBC, URIC #### [facility] [address] RBC,Urine 3-4 Normal 0-4 [facility] Comment on above: Order Comment: Reaso n for Exam Acute kidney injury;Chronic kidney disease, stage 3b;Bilater Performed By: #### V [id number], MANDI, B12, MG, PHOS, CMP, FOL, FE and TIBC, URIC #### [facility] [address] [place] [address] Specificy [place],Urine 1.017 Normal 1.00 1-1.03 0 [facility] Comment on above: Order Comment: Reaso n for Exam Acute kidney injury;Chronic kidney disease, stage 3b;Bilater Performed By: #### V [id number], MANDI, B12, MG, PHOS, CMP, FOL, FE and TIBC, URIC #### [facility] [address] Squamous Epithelial Cell,Urine 0-1 Normal 0-2 [facility] Comment on above: Order Comment: Reaso n for Exam Acute kidney injury;Chronic kidney disease, stage 3b;Bilater Performed By: #### V [id number], MANDI, B12, MG, PHOS, CMP, FOL, FE and TIBC, URIC #### [facility] [address] [place] [address] Urobilinogen,Urine Normal Normal Normal [facility] Comment on above: Order Comment: Reaso n for Exam Acute kidney injury;Chronic kidney disease, stage 3b;Bilater Performed By: #### V [id number], MANDI, B12, MG, PHOS, CMP, FOL, FE and TIBC, URIC #### [facility] [address] [place] [address] WBC,Urine 50-100 High 0-4 [facility] Comment on above: Order Comment: Reaso n for Exam Acute kidney injury;Chronic kidney disease, stage 3b;Bilater Performed By: #### V [id number], MANDI, B12, MG, PHOS, CMP, FOL, FE and TIBC, URIC #### [facility] [address] [place] [address] [place] Erythrocyte distribution wid th Auto (RBC) [Ratio]Ordered By: Celia Ramos on 04-08-2023 Erythrocyte distribution width (RBC) [Ratio] 15.7 % 12.0-14.8 [facility] Ferritinon 04-08-2023 Ferritin [Mass/Vol] 34.1 ng/mL Normal 23.9-336.2 [facility] Comment on above: Order Comment: Reaso n for Exam Acute kidney injury;Chronic kidney disease, stage 3b;Bilater Performed By: #### V [id number], MANDI, B12, MG, PHOS, CMP, FOL, FE and TIBC, URIC #### [facility] [address] [place] [address] [place] Ferritin [Mass/volume] in Se rum or PlasmaOrdered By: Celia Ramos on 04-08-2023 Ferritin [Mass/Vol] 34.1 ng/mL 23.9-336.2 [facility] Folateon 04-08-2023 Folate 34.0 ng/mL Normal >5.9 [facility] Comment on above: Order Comment: Reaso n for Exam Acute kidney injury;Chronic kidney disease, stage 3b;Bilater Result Comment: Caryn te reference range: >5.9 ng/ml The WHO technical consultation on folate and vitamin b12 deficiencies has determined that folate concentrations less than 4 ng/ml are considered deficient. Performed By: #### V [id number], MANDI, B12, MG, PHOS, CMP, FOL, FE and TIBC, URIC #### [facility] [address] [place] [address] [place] Folate [Mass/volume] in Seru m or PlasmaOrdered By: Celia Ramos on 04-08-2023 Folate [Mass/Vol] 34.0 ng/mL >5.9 [facility] Comment on above: Folate reference ran ge: >5.9 ng/mlThe WHO technical consultation on folate and vitamin [id number] has determined that folate concentrations lessthan 4 ng/ml are considered deficient. Globulin Calc (S) [Mass/Vol] Ordered By: Celia Ramos on 04-08-2023 Globulin (S) [Mass/Vol] 2.8 g/dL [facility] Glucose [Mass/volume] in Ser um or PlasmaOrdered By: Celia Ramos on 04-08-2023 Glucose [Mass/Vol] 107 mg/dL 70-100 [facility] Comment on above: ADA recommended refe rence rangeRandom Glucose Reference Range is dependent on time and content of last meal. Glucose of more than 200 mg/dL in a nonstressed, ambulatory subject supports the diagnosis of Diabetes Mellitus. Hematocrit Auto (Bld) [Volum e fraction]Ordered By: Celia Ramos on 04-08-2023 Hematocrit (Bld) [Volume fraction] 43.8 % 38.8-50.0 [facility] Hemoglobin [Mass/volume] in BloodOrdered By: Celia Ramos on 04-08-2023 Hemoglobin (Bld) [Mass/Vol] 14.3 g/dL 13.0-17.0 [facility] Hemogram CBC Without Diffon 04-08-2023 Erythrocyte distribution width (RBC) [Ratio] 15.7 % High 12.0-14.8 [facility] Comment on above: Order Comment: Reaso n for Exam Acute kidney injury;Chronic kidney disease, stage 3b;Bilater Performed By: #### V [id number], MANDI, B12, MG, PHOS, CMP, FOL, FE and TIBC, URIC #### [facility] [address] Hematocrit (Bld) [Volume fraction] 43.8 % Normal 38.8-50.0 [facility] Comment on above: Order Comment: Reaso n for Exam Acute kidney injury;Chronic kidney disease, stage 3b;Bilater Performed By: #### V [id number], MANDI, B12, MG, PHOS, CMP, FOL, FE and TIBC, URIC #### [facility] [address] Hemoglobin (Bld) [Mass/Vol] 14.3 g/dL Normal 13.0-17.0 [facility] Comment on above: Order Comment: Reaso n for Exam Acute kidney injury;Chronic kidney disease, stage 3b;Bilater Performed By: #### V [id number], MANDI, B12, MG, PHOS, CMP, FOL, FE and TIBC, URIC #### [facility] [address] MCH (RBC) [Entitic mass] 27.3 pg Low 27.5-35.2 [facility] Comment on above: Order Comment: Reaso n for Exam Acute kidney injury;Chronic kidney disease, stage 3b;Bilater Performed By: #### V [id number], MANDI, B12, MG, PHOS, CMP, FOL, FE and TIBC, URIC #### [facility] [address] MCV (RBC) [Entitic vol] 83.8 fL Normal 83.5-101 F [facility] Comment on above: Order Comment: Reaso n for Exam Acute kidney injury;Chronic kidney disease, stage 3b;Bilater Performed By: #### V [id number], MANDI, B12, MG, PHOS, CMP, FOL, FE and TIBC, URIC #### [facility] [address] Mean Corpuscular HGB Conc 32.6 g/dL Normal 32.5-35.6 [facility] Comment on above: Order Comment: Reaso n for Exam Acute kidney injury;Chronic kidney disease, stage 3b;Bilater Performed By: #### V [id number], MANDI, B12, MG, PHOS, CMP, FOL, FE and TIBC, URIC #### [facility] [address] Platelet mean volume (Bld) [Entitic vol] 8.6 fL Normal 6.6-10.1 [facility] Comment on above: Order Comment: Reaso n for Exam Acute kidney injury;Chronic kidney disease, stage 3b;Bilater Result Comment: PERF ORMED BY: [place] [address] PATHOLOGIST [employer] OREN OWEN M.D. Performed By: #### V [id number], MANDI, B12, MG, PHOS, CMP, FOL, FE and TIBC, URIC #### [facility] [address] Platelets (Bld) [#/Vol] 201 10*3/uL Normal 150-450 [facility] Comment on above: Order Comment: Reaso n for Exam Acute kidney injury;Chronic kidney disease, stage 3b;Bilater Performed By: #### V [id number], MANDI, B12, MG, PHOS, CMP, FOL, FE and TIBC, URIC #### [address] RBC (Bld) [#/Vol] 5.22 10*6/uL Normal 3.90-5.60 [facility] Comment on above: Order Comment: Reaso n for Exam Acute kidney injury;Chronic kidney disease, stage 3b;Bilater Performed By: #### V [id number], MANDI, B12, MG, PHOS, CMP, FOL, FE and TIBC, URIC #### [address] WBC (Bld) [#/Vol] 8.4 10*3/uL Normal 4.1-10.5 [facility] Comment on above: Order Comment: Reaso n for Exam Acute kidney injury;Chronic kidney disease, stage 3b;Bilater Performed By: #### V [id number], MANDI, B12, MG, PHOS, CMP, FOL, FE and TIBC, URIC #### [address] Iron [Mass/volume] in Serum or PlasmaOrdered By: Celia Ramos on 04-08-2023 Iron [Mass/Vol] 53 ug/dL 50-212 [facility] Iron and TIBC Profileon 03-26 % Iron Saturation 14.3 % Low 20-50 [facility] Comment on above: Order Comment: Reaso n for Exam Acute kidney injury;Chronic kidney disease, stage 3b;Bilater Performed By: #### V [id number], MANDI, B12, MG, PHOS, CMP, FOL, FE and TIBC, URIC #### [place] [id number] [place] Iron [Mass/Vol] 53 ug/dL Normal 50-212 [facility] Comment on above: Order Comment: Reaso n for Exam Acute kidney injury;Chronic kidney disease, stage 3b;Bilater Performed By: #### V [id number], MANDI, B12, MG, PHOS, CMP, FOL, FE and TIBC, URIC #### [facility] [address] [place] [address] [place] Total Iron Binding Capacity 370 ug/dL Normal 255-450 [facility] Comment on above: Order Comment: Reaso n for Exam Acute kidney injury;Chronic kidney disease, stage 3b;Bilater Performed By: #### V [id number], MANDI, B12, MG, PHOS, CMP, FOL, FE and TIBC, URIC #### [facility] [address] [place] [address] [place] Transferrin [Mass/Vol] 264 mg/dL Normal 203-362 [facility] Comment on above: Order Comment: Reaso n for Exam Acute kidney injury;Chronic kidney disease, stage 3b;Bilater Performed By: #### V [id number], MANDI, B12, MG, PHOS, CMP, FOL, FE and TIBC, URIC #### [facility] [address] [place] [address] [place] Iron binding capacity [Mass/ volume] in Serum or PlasmaOrdered By: Celia Ramos on 04-08-2023 Iron binding capacity [Mass/Vol] 370 ug/dL 255-450 [facility] Iron saturation [Mass Fracti on] in Serum or PlasmaOrdered By: Celia Ramos on 04-08-2023 Iron saturation [Mass fraction] 14.3 % 20-50 [facility] Ketones Auto test strip (U) [Mass/Vol]Ordered By: Celia Ramos on 04-08-2023 Ketones (U) [Mass/Vol] Negative Negative [facility] Laboratory - UrinalysisOrder ed By: Celia Ramos on 04-08-2023 Hyaline casts LM Ql (Urine sed) 9-19 [LPF] 0-8 [facility] Leukocytes [#/volume] correc phil for nucleated erythrocytes in Blood by Automated counOrdered By: Celia Ramos on 04-08-2023 WBC corrected for nucl RBC Auto (Bld) [#/Vol] 8.4 10*3/uL 4.1-10.5 [facility] Lipid Panelon 04-08-2023 Cholesterol [Mass/Vol] 107 mg/dL Low 140-200 [facility] Comment on above: Result Comment: Chol less than 200 mg/dl low risk Chol 201-239 mg/dl borderline risk Chol 240 mg/dl and greater high risk Performed By: #### L IPID #### [facility] [address] [place] [address] [place] Cholesterol in HDL [Mass/Vol] 34 mg/dL Normal 23-92 [facility] Comment on above: Result Comment: HDL CHOL ATP-III CLASSIFICATION Cardiovascular Risk HDL > or equal to 60 mg/dL LOW HDL < 40 mg/dL HIGH Performed By: #### L IPID #### [facility] [address] [place] [address] [place] Cholesterol.total/Sonya sterol in HDL [Mass ratio] 3.1 {ratio} Normal <5.0 [facility] Comment on above: Result Comment: PERF ORMED BY: [place] [address] PATHOLOGIST HEAD OF SALES [employer] OREN OWEN M.D. Performed By: #### L IPID #### [facility] [address] LDL Cholesterol,Calculated 47 mg/dL Normal 0-100 [facility] Comment on above: Result Comment: LDL ATP III CLASSIFICATION LDL less than 100 mg/dL Optimal LDL 100-129 mg/dL Near or above optimal LDL 130-159 mg/dL Borderline high LDL 160-189 mg/dL High LDL greater than 189 mg/dL Very high Performed By: #### L IPID #### [facility] [address] [place] [address] [place] Triglyceride w/Reflex 131 mg/dL Normal 0-149 [facility] Comment on above: Result Comment: TRIG ATP III CLASSIFICATION TRIG less than 150 mg/dL Normal TRIG 150-199 mg/dL Borderline high TRIG 200-500 mg/dL High TRIG greater than 500 mg/dL Very high Standard traceable to the Center for Disease Conrtrol and Prevention (CDC) test method. Performed By: #### L IPID #### [facility] [address] VLDL CHOLESTEROL 26 mg/dL Normal [facility] Comment on above: Performed By: #### L IPID #### [facility] [address] MCH Auto (RBC) [Entitic mass ]Ordered By: Celia Ramos on 04-08-2023 MCH (RBC) [Entitic mass] 27.3 pg 27.5-35.2 [facility] MCHC Auto (RBC) [Mass/Vol]Or dered By: Celia Ramos on 04-08-2023 MCHC (RBC) [Mass/Vol] 32.6 g/dL 32.5-35.6 [facility] MCV Auto (RBC) [Entitic vol] Ordered By: Celia Ramos on 04-08-2023 MCV (RBC) [Entitic vol] 83.8 fL 83.5-101 F [facility] Magnesiumon 04-08-2023 Magnesium [Mass/Vol] 2.2 mg/dL Normal 1.9-2.[address] [facility] Comment on above: Order Comment: Reaso n for Exam Acute kidney injury;Chronic kidney disease, stage 3b;Bilater Performed By: #### V [id number], MANDI, B12, MG, PHOS, CMP, FOL, FE and TIBC, URIC #### [facility] [address] Magnesium [Mass/volume] in S marium or PlasmaOrdered By: Celia Ramos on 04-08-2023 Magnesium [Mass/Vol] 2.2 mg/dL 1.9-2.[address] [facility] Nitrite Test strip Ql (U)Ord ered By: Celia Ramos on 04-08-2023 Nitrite Ql (U) Positive Negative [facility] No Panel InformationOrdered By: Celia Ramos on 04-08-2023 Estimated GFR (CKD-EPI) 50.692 mL/Min [facility] Creatinine Clearance (Chem N/A [facility] Parathyrin.intact [Mass/volu me] in Serum or PlasmaOrdered By: Celia Ramos on 04-08-2023 Parathyrin.intact [Mass/Vol] 76.6 pg/mL [facility] Parathyroid Hormone Intacton 04-08-2023 Parathyroid Hormone Intact 76.6 pg/mL Normal [facility] Comment on above: Order Comment: Reaso n for Exam Acute kidney injury;Chronic kidney disease, stage 3b;Bilater Result Comment: PERF ORMED BY: [place] [address] PATHOLOGIST HEAD [employer] SAL[employer] OREN OWEN M.D. Performed By: #### V [id number], MANDI, B12, MG, PHOS, CMP, FOL, FE and TIBC, URIC #### [facility] [address] [place] [address] Phosphate [Mass/volume] in S marium or PlasmaOrdered By: Celia Ramos on 04-08-2023 Phosphate [Mass/Vol] 2.8 mg/dL 2.5-4.[address] [facility] Phosphoruson 04-08-2023 Phosphate [Mass/Vol] 2.8 mg/dL Normal 2.5-4.[address] [facility] Comment on above: Order Comment: Reaso n for Exam Acute kidney injury;Chronic kidney disease, stage 3b;Bilater Performed By: #### V [id number], MANDI, B12, MG, PHOS, CMP, FOL, FE and TIBC, URIC #### [facility] [address] [place] [address] Platelet mean volume Auto (B ld) [Entitic vol]Ordered By: Celia Ramos on 04-08-2023 Platelet mean volume (Bld) [Entitic vol] 8.6 fL 6.6-10.1 [facility] Platelets Auto (Bld) [#/Vol] Ordered By: Celia Ramos on 04-08-2023 Platelets (Bld) [#/Vol] 201 10*3/uL 150-450 [facility] Potassium [Moles/volume] in Serum or PlasmaOrdered By: Celia Ramos on 04-08-2023 Potassium [Moles/Vol] 4.5 mmol/L 3.5-5.1 [facility] Protein Auto test strip (U) [Mass/Vol]Ordered By: Celia Ramos on 04-08-2023 Protein (U) [Mass/Vol] Trace mg/dL Negative [facility] Protein Creat Ratio Ur Rando mon 04-08-2023 Creatinine, Urine (Random) 90.0 mg/dL High 14.0-26.0 [facility] Comment on above: Order Comment: Reaso n for Exam Acute kidney injury;Chronic kidney disease, stage 3b;Bilater Performed By: #### V [id number], MANDI, B12, MG, PHOS, CMP, FOL, FE and TIBC, URIC #### [facility] [address] Protein (U) [Mass/Vol] 30 mg/dL High 0-9 [facility] Comment on above: Order Comment: Reaso n for Exam Acute kidney injury;Chronic kidney disease, stage 3b;Bilater Performed By: #### V [id number], MANDI, B12, MG, PHOS, CMP, FOL, FE and TIBC, URIC #### [facility] [address] Urine Protein/Creatinine Ratio 333 mg/g{Cre} High 0-200 [facility] Comment on above: Order Comment: Reaso n for Exam Acute kidney injury;Chronic kidney disease, stage 3b;Bilater Result Comment: PERF ORMED BY: [place] [address] PATHOLOGIST HEAD [employer] SAL[employer] OREN OWEN M.D. Performed By: #### V [id number], MANDI, B12, MG, PHOS, CMP, FOL, FE and TIBC, URIC #### [facility] [address] [place] [address] [place] Protein [Mass/volume] in Ser um or PlasmaOrdered By: Celia Ramos on 04-08-2023 Protein [Mass/Vol] 7.0 g/dL 6.4-8.9 [facility] Protein [Mass/volume] in Uri neOrdered By: Celia Ramos on 04-08-2023 Protein (U) [Mass/Vol] 30 mg/dL 0-9 [facility] RBC Auto (Bld) [#/Vol]Ordere d By: Celia Ramos on 04-08-2023 RBC (Bld) [#/Vol] 5.22 10*6/uL 3.90-5.60 [facility] Serum or plasma albumin/glob ulin mass ratioOrdered By: Celia Ramos on 04-08-2023 Albumin/Globulin [Mass ratio] 1.5 {ratio} [facility] Serum or plasma anion gap de terminationOrdered By: Celia Ramos on 04-08-2023 Anion gap [Moles/Vol] 8.9 mmol/L 6.0-15.0 [facility] Serum or plasma high density lipoprotein (HDL) cholesterol measurementOrdered By: Teo Stokes on 04-08-2023 Cholesterol in HDL [Mass/Vol] 34 mg/dL 23-92 [facility] Comment on above: HDL CHOL ATP-III CLA SSIFICATION Cardiovascular RiskHDL > or equal to 60 mg/dL LOWHDL < 40 mg/dL HIGH Serum or plasma total choles terol/high density lipoprotein (HDL) cholesterol mass ratOrdered By: Teo Stokes on 04-08-2023 Cholesterol.total/Sonya sterol in HDL [Mass ratio] 3.1 {ratio} <5.0 [facility] Sodium [Moles/volume] in Ser um or PlasmaOrdered By: Celia Ramos on 04-08-2023 Sodium [Moles/Vol] 143 mmol/L 136-145 [facility] Specific gravity Auto test s trip (U) [Rel density]Ordered By: Celia Ramos on 04-08-2023 Specific gravity (U) [Rel density] 1.017 1.001-1.03 0 [facility] Squamous epithelial cells de tection in urine sediment by light microscopyOrdered By: Celia Ramos on 04-08-2023 Epithelial cells.squamous LM Ql (Urine sed) 0-1 [HPF] 0-2 [facility] Transferrin [Mass/volume] in Serum or PlasmaOrdered By: Celia Ramos on 04-08-2023 Transferrin [Mass/Vol] 264 mg/dL 203-362 Fi [facility] Triglyceride [Mass/volume] i n Serum or PlasmaOrdered By: Teo Stokes on 04-08-2023 Triglyceride [Mass/Vol] 131 mg/dL 0-149 F [facility] Comment on above: TRIG ATP III CLASSIF ICATIONTRIG less than 150 mg/dL NormalTRIG 150-199 mg/dL Borderline highTRIG 200-500 mg/dL High TRIG greater than 500 mg/dL Very highStandard traceable to the Center for Disease Conrtrol and Prevention (CDC) test method. Urate [Mass/volume] in Serum or PlasmaOrdered By: Celia Ramos on 04-08-2023 Urate [Mass/Vol] 6.0 mg/dL 4.4-7.6 [facility] Urea nitrogen [Mass/volume] in Serum or PlasmaOrdered By: Celia Ramos on 04-08-2023 Urea nitrogen [Mass/Vol] 27 mg/dL 7-25 [facility] Uric Acidon 04-08-2023 Urate [Mass/Vol] 6.0 mg/dL Normal 4.4-7.6 [facility] Comment on above: Order Comment: Cristobal n for Exam Acute kidney injury;Chronic kidney disease, stage 3b;Bilater Performed By: #### V [id number], MANDI, B12, MG, PHOS, CMP, FOL, FE and TIBC, URIC #### [facility] [address] Urine Cultureon 04-08-2023 Bacteria identified Cx Nom (U) ORGANISM: Klebsiella oxytoca (O:KLEOXY) Wayne Count >100,000 ORGANISM: Morganella morganii (O:MORMOR) [place] Count >100,000 Aerobic RITESH Charge (NMIC56) SUSCEPTIBILITY [...] <0.5 Aerobic RITESH Charge (NMIC56) SUSCEPTIBILITY ORGANISM: O:SHERIFMOR ANTIBIOTIC INTERPRETATION RITESH Amikacin S <16 Ampicillin/Sulbactam [...] RESISTANT TO ALL B-LACTAM DRUGS. PERFORMED BY: [address] [place] [address] PATHOLOGIST HEAD OF SAL[employer] OREN OWEN M.D. Normal [facility] Comment on above: Performed By: #### V [id number], MANDI, B12, MG, PHOS, CMP, FOL, FE and TIBC, URIC #### [facility] [address] [place] [address] [place] Urine bacteria detection by automated methodOrdered By: Celia Ramos on 04-08-2023 Bacteria Auto Ql (U) 4+ None Seen [facility] Urine clarity by refractomet ry automatedOrdered By: Celia Ramos on 04-08-2023 Clarity Refractometry automated (U) Cloudy Clear [facility] Urine glucose measurement by automated test strip (mass/volume)Ordered By: Celia Ramos on 04-08-2023 Glucose Auto test strip (U) [Mass/Vol] Normal mg/dL Normal [facility] Urine hemoglobin detection b y automated test stripOrdered By: Celia Ramos on 04-08-2023 Hemoglobin Auto test strip Ql (U) 1+ Negative [facility] Urine leukocyte esterase det ection by automated test stripOrdered By: Celia Ramos on 04-08-2023 Leukocyte esterase Auto test strip Ql (U) 4+ Negative [facility] Urine protein/creatinine rat ioOrdered By: Celia Ramos on 04-08-2023 Protein/Creatinine (U) [Ratio] 333 mg/g{Cre} 0-200 [facility] Urobilinogen Auto test strip (U) [Mass/Vol]Ordered By: Celia Ramos on 04-08-2023 Urobilinogen (U) [Mass/Vol] Normal mg/dL Normal [facility] Vitamin B12on 04-08-2023 Cobalamin (Vitamin B12) [Mass/Vol] 301 pg/mL Normal 180-914 [facility] Comment on above: Order Comment: Reaso n for Exam Acute kidney injury;Chronic kidney disease, stage 3b;Bilater Performed By: #### V [id number], MANDI, B12, MG, PHOS, CMP, FOL, FE and TIBC, URIC #### [facility] [address] Vitamin B12 ser/plasOrdered By: Celia Ramos on 04-08-2023 Cobalamin (Vitamin B12) [Mass/Vol] 301 pg/mL 180-914 [facility] Vitamin D 25 Hydroxy Totalon 04-08-2023 Vitamin D 25 Hydroxy Total 37.5 ng/mL Normal 30-100 [facility] Comment on above: Order Comment: Reaso n for Exam Acute kidney injury;Chronic kidney disease, stage 3b;Bilater Result Comment: [place] MIN D STATUS 25([place])VITAMIN D RANGE (ng/mL) Deficient <20 Insufficient 20 to <30 Sufficient 30 to 100 Reference: Federico Coleman, Palomo LESLIE, et al. Evaluation,treatment, and prevention of vitamin D deficiency; an Endocrine Society clinical practice guideline. JCEM. 2010; 96(7):191-. PERFORMED BY: [place] [address] PATHOLOGIST HEAD OF SALES [employer] OREN OWEN M.D. Performed By: #### V [id number], MANDI, B12, MG, PHOS, CMP, FOL, FE and TIBC, URIC #### [address] Vitamin D+Metabolites [Mass/ volume] in Serum or PlasmaOrdered By: Celia Ramos on 04-08-2023 Vitamin D+Metabolites [Mass/Vol] 37.5 ng/mL 30-100 [facility] Comment on above: VITAMIN D STATUS 25( [place])VITAMIN D RANGE (ng/mL) Deficient <20 Insufficient 20 to <30Sufficient 30 to 100Reference: Federico Coleman, Palomo LESLIE, et al. Evaluation,treatment, and prevention of vitamin D deficiency; an Endocrine Society clinical practice guideline. JCEM. 2010; 96(7):191-. pH Auto test strip (U)Ordere d By: Celia Ramos on 04-08-2023 pH (U) 7.0 [pH] 5.0-9.0 [facility] UroVysion Fish and Urine Cyt o ([facility])on 03-18-2023 [facility] Diagnosis Info Invalid Interpretation Code [facility] Comment on above: Result Comment: A:Ur [...] correlated with cytology and cystoscopy results.* CPT 72342, 54461. 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 Electronically signed by : on: 03/18/2023 13:35:55 Performed By: #### 1 [id number] ####[facility] [address] [place] [address] Consent for Procedure/Surger yon 03-12-2023 Consent for Procedure/Surgery [id number]#[id number] Normal [facility] Ambulatory Visit Summaryon 1 Ambulatory Visit [...] Following Appointments Follow Up with ARLENE CASILLAS, ADRIA Sterling When: In 3 months Comments: Sched cysto/FISH/Cytol/BT check Where: [facility] [address], [place] [address]- Medications What How Much When Instructions Unchanged [...] kidney and (more content not included)... Normal [facility] Patient Educationon 03-11- 23 Patient Education Urology Transurethral Resection of [...] including vitamins, herbs, eye drops, creams, and aseo-otk-fxdrtta medicines. ? Any problems you or family [...] tells you to take them. ? Taking kuwd-ayv-dafrrqs medicines, vitamins, herbs, and supplements. Surgery safety [...] health care (more content not included)... Normal [facility] UroVysion Fish and Urine Cyt o ( Labs)on 03-11-2023 [facility] Method of Extraction Bladder Urine Normal [facility] Comment on above: Performed By: #### 1 [id number] ####[facility] [address] [place] [address] [facility] Number of Jars 1 Invalid Interpretation Code [facility] Comment on above: Performed By: #### 1 [id number] ####[facility] [address] [place] [address] [facility] Specimen Bladder Wash Normal [facility] Comment on above: Performed By: #### 1 [id number] ####[facility] [address] [place] [address] [facility] Type of Service Technical Only Normal [facility] Comment on above: Performed By: #### 1 [id number] ####[facility] [address] [place] [address] Urology Office/Clinic Noteon 03-11-2023 Urology Office/Clinic Note [...] Retention of urine, unspecified) Pt presented to [facility] ER on 09/15/22 due to catheter [...] With When Contact Information Katia SAMUELS MD, ADRIA In 3 months [facility] [address], [place] [address]- Additional Instructions: Sched cysto/FISH/Cytol/BT check Patient Education Benign Prostatic Hyperplasia I, Dalila Lala , personally scribed for Dr. Samuels on 03/11/2023 14:20:53. Electronically signed by emma Lala on (more content not included)... Normal [facility] Comment on above: Result Comment: Elec [...] Lipid Panel; Status:Active - Retrospective Authorization; Requested for:[id number]; Overweight with body mass index (BMI) of 27 to 27.9 in adult Healthy Weight Tips; Status:Complete - Retrospective Authorization; Done: 22Jan2023 Some eating tips that can help you lose weight.; Status:Complete - Retrospective Authorization; Done: 22Jan2023 SocHx: Current smoker Start: Aspirin 81 MG Oral Tablet Delayed Release; TAKE 1 TABLET DAILY Tobacco Use Screening; Status:Complete; Done: 22Jan2023 You need to stop smoking. Though it is not easy, more than half of all adult smokers have quit. We encourage you to write down all the reasons you should quit smoking and set a quit date for yourself. Ask us how we can help. You may also call 5-422-AKXSNOW for free resources and assistance.; Status:Complete - Retrospective Authorization; Done: 22Jan2023 Tobacco Use Screening; Status:Complete; Done: 22Jan2023 Patient Instructions Please bring all medicines, vitamins, [...] negative for complaint. Vitals Vital Signs Recorded: [id number] 09:57AM Heart Rate72, L Radial Aqjajefp513, LUE, Sitting Fcubzrare20, LUE, Sitting Height6 ft 2 in Kpigfl858 lb BMI Fsrepaymfc49.35 kg/m2 BSA Calculat (more content not included)... Normal [place] Tobacco Screening.on 023 Fall risk assessment a) No falls within the last year [facility] [employer] [address] DO Work Phone: Tobacco use status [facility] a) Yes M [facility] [employer] 250 DO Work Phone: Tobacco Screening. Yes [facility] Work Phone: IntraOperative Documentson 0 01-13-2023 IntraOperative Documents [id number]#1.00CD:127 Normal [facility] Consent for Procedure/Surger yon 01-07-2023 Consent for Procedure/Surgery [id number]#1.00CD:127 Normal [facility] IntraOperative Documentson 0 01-07-2023 IntraOper[facility] Documents [id number]#1.00CD:127 Normal [facility] Consent for Treatmenton Consent for Treatment [id number]#1.00CD:127 Normal [facility] UroVysion Fish and Urine Cyt o ([facility])on 12-17-2022 [facility] Diagnosis Info Invalid Interpretation Code [facility] Comment on above: Result Comment: A:Ur [...] correlated with cytology and cystoscopy results.* CPT 85347, 22529. Microscopic Notes - Microscopic Notes - Abnormal cells 9p21 deletions: Abnormal cells aneploid events: Total cells analyzed: 101 Hematuria: Gross Description Site ID:A color No Color fixative Alcohol Received 60 mls of clear no color fluid with the patient's name and, Urine on the vial. Electronically signed by : on: 12/17/2022 09:12:29 Performed By: #### 1 [id number] ####[facility] [address] [place] [address] Urology Office/Clinic Noteon 12-16-2022 Urology Office/Clinic Note [...] Retention of urine, unspecified) Pt presented to [facility] ER on 09/15/22 due to catheter [...] [facility] [address], [place] [address]- Additional Instructions: Follow up after urodynamics for [...] emphysema Dem (more content not included)... Normal [facility] Comment on above: Result Comment: Elec tronically Signed By: Dana Rivas\.br\Date and Time Signed: 12/16/22 11:30 EDT Consent for Procedure/Surger yon 12-11-2022 Consent for Procedure/Surgery [id number]#1.00CD:127 Normal [facility] Ambulatory Visit Summaryon 0 12-10-2022 Ambulatory [...] URL When: Where: [facility] [address] [place] [address]- Medications What How Much When Instructions Unchanged [...] with r (more content not included)... Normal [facility] Patient Educationon 12-11-19 Patient Education Oncology [...] if anything looks unusual. Men with a vmctpr-mgjc-ejqweq risk for skin cancer may want to see a fireworks display specialist (sound effects person) for an annual body check. What are the benefits of screening? Cancer screening is done to look for cancer in the very early stages, before it spreads and becomes harder to treat and before you would start to notice symptoms. Finding cancer early improves the chances of successful treatment. It ma (more content not included)... Normal [facility] UroVysion Fish and Urine Cyt o ([facility])on 12-10-2022 [facility] Method of Extraction Bladder Wash Normal [facility] Comment on above: Performed By: #### 1 [id number] ####[facility] [address] [place] [address] [facility] Number of Jars 1 Invalid Interpretation Code [facility] Comment on above: Performed By: #### 1 [id number] ####[facility] [address] [place] [address] [facility] Specimen Urine Normal [facility] Comment on above: Performed By: #### 1 [id number] ####[facility] [address] [place] [address] [facility] Type of Service Technical Only Normal [facility] Comment on above: Performed By: #### 1 [id number] ####[facility] [address] [place] [address] Urology Office/Clinic Noteon 09-19-2022 Urology Office/Clinic Note [...] urothelial carcinoma, low grade. Pt presented to [facility] ER on 09/15/22 due to catheter [...] order Local anesthesia. Prophy abx sent to [facility]. 2. 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 Pt presented to [facility] ER on 09/15/22 due to catheter [...] [facility] [address], [place] [address]- Additional Instructions: schedule urocuff, 3 mos cysto/bt [...] bladder tumor ( (more content not included)... [facility] Comment on above: Result Comment: Elec [...] 10:00 AM EDT Where: [facility] CULTURE URINEon 04-26-2023 CULTURE URINE Isolate 1 Pseudomonas aeruginosa >100,000 cfu/mL of ORGANISM 1 Pseudomonas aeruginosa ANTIBIOTIC M.I.C RX STATUS Piperacillin/Tazobactam <=4 S F Ceftazidime <=1 S F Imipenem 2 S F Amikacin <=2 S F Gentamicin 2 S F Tobramycin <=1 S F Ciprofloxacin <=0.25 S F Levofloxacin <=0.12 S F Normal [facility] Comment on above: Performed By: #### U RTPCR #### [facility] [address] [address] [address] Karen Pierce Patient Educationon 09-19-19 Patient [...] Follow these instructions at home: ? Take hppr-vpn-bruwvef and prescription medicines only as told by [...] important. Where to find more information ? [employer] [employer] (ACS): cancer.org ? National Cancer [place] (NCI): cancer.gov Contact a health care provider [...] have wi (more content not included)... Normal [facility] CALCULI, URINARYon 3 2,8 Dihydroxyadenine Normal [facility] Comment on above: Performed By: #### U A #### [facility] [address] [address] [address] Karen Pierce Ammonium Acid Urate Normal [facility] Comment on above: Performed By: #### U A #### [facility] [address] [address] [address] Karen Pierce Bilirubin Ql (U) Normal [facility] Comment on above: Performed By: #### U A #### [facility] [address] [address] [address] Karen Pierce Ca Oxalate Dihydrate Normal [facility] Comment on above: Performed By: #### U A #### [facility] [address] [address] [address] Karen Pierce CaHPO4 (Brushite) Normal [facility] Comment on above: Performed By: #### U A #### [facility] [address] [address] [address] Karen Pierce Calcium Bilirubinate Normal [facility] Comment on above: Performed By: #### U A #### [facility] [address] [address] [address] Karen Pierce Calcium Carbonate Normal [facility] Comment on above: Performed By: #### U A #### [facility] [address] [address] [address] Karen Pierce Calcium Oxalate Monohydrate 100 % [facility] Comment on above: Performed By: #### U A #### [facility] [address] [address] [address] Karen Pierce Calcium Palmitate Normal [facility] Comment on above: Performed By: #### U A #### [facility] [address] [address] [address] Karen Pierce Calcium Phosphate [facility] Comment on above: Performed By: #### U A #### [facility] [address] [address] [address] Karen Pierce Calcium Stearate [facility] Comment on above: Performed By: #### U A #### [facility] [address] [place] [address] Dr. Karen Pierce Carbonate Apatite [facility] Comment on above: Performed By: #### U A #### [facility] [address] [address] [address] Karen Pierce Cellular Material [facility] Comment on above: Performed By: #### U A #### [facility] [address] [address] [address] Karen Pierce Cholesterol [facility] Comment on above: Performed By: #### U A #### [facility] [address] [address] [address] Karen Pierce Color (U) Brown Normal [facility] Comment on above: Performed By: #### U A #### [facility] [address] [address] [address] Karen Pierce Comment [facility] Comment on above: Performed By: #### U A #### [facility] [address] [place] [address] Dr. Karen Pierce Comment: Comment [facility] Comment on above: Result Comment: Phys ninoskaan questions regarding Calculi Analysis contact [facility] at: [phone]. Performed By: #### U A #### [facility] [address] [place] [address] Dr. Karen Pierce Composition Comment [facility] Comment on above: Result Comment: Perc entage (Represents the % composition) Performed By: #### U A #### [facility] [address] [place] [address] Dr. Karen Pierce Cystine Normal [facility] Comment on above: Performed By: #### U A #### [facility] [address] [place] [address] Dr. Karen Pierce Disclaimer: Comment Normal [facility] Comment on above: Result Comment: This test was developed and its performance characteristics determined by [employer]. It has not been cleared or approved by the Food and Drug Administration. Performed By: #### U A #### [facility] [address] [place] [address] Dr. Karen Pierce Dried Blood Normal [facility] Comment on above: Performed By: #### U A #### [facility] [address] [place] [address] Dr. Karen Pierce Drug or Metabolite [facility] Comment on above: Performed By: #### U A #### [facility] [address] [place] [address] Dr. Karen Pierce Hydroxyapatite [facility] Comment on above: Performed By: #### U A #### [facility] [address] [place] [address] Dr. Karen Pierce Mg NH4 PO4 (Struvite) [facility] Comment on above: Performed By: #### U A #### [facility] [address] [place] [address] Dr. Karen Pierce MgHPO4 (Newberyite) [facility] Comment on above: Performed By: #### U A #### [facility] [address] [place] [address] Dr. Karen Pierce Other component(s) Normal [facility] Comment on above: Performed By: #### U A #### [facility] [address] [place] [address] Dr. Karen Pierce PDF . Normal [facility] Comment on above: Performed By: #### U A #### [facility] [address] [address] [address] Karen Pierce Photo Comment Normal [facility] Comment on above: Result Comment: Phot ograph will follow under a separate cover Performed By: #### U A #### [facility] [address] [address] [address] Karen Pierce Please note: Comment Normal [facility] Comment on above: Result Comment: Calc shirley report will follow via computer, mail or inspector plug seam delivery. Performed By: #### U A #### [facility] [address] [place] [address] Dr. Karen Pierce Size 5x5 [facility] Comment on above: Result Comment: Mult iple pieces received. Dimensions of the largest piece reported. Performed By: #### U A #### [facility] [address] [place] [address] Dr. Karen Pierce Sodium Acid Urate [facility] Comment on above: Performed By: #### U A #### [facility] [address] [address] [address] Karen Pierce Source Comment [facility] Comment on above: Result Comment: Urin evelin Bladder Performed By: #### U A #### [facility] [address] [place] [address] Dr. Karen Pierce Triamterene [facility] Comment on above: Performed By: #### U A #### [facility] [address] [address] [address] Karen Pierce Uric Acid [facility] Comment on above: Performed By: #### U A #### [facility] [address] [place] [address] Dr. Karen Pierce Uric Acid Dihydrate [facility] Comment on above: Performed By: #### U A #### [facility] [address] [address] [address] Karen Pierce Weight 158 mg [facility] Comment on above: Performed By: #### U A #### [facility] [address] [address] [address] Karen Pierce Xanthine Normal [facility] Comment on above: Performed By: #### U A #### [facility] [address] [place] [address] Dr. Karen Pierce Pathology Noteon 09-17-2022 Pathology Note [id number]#1.00CD:127 Normal [facility] ER URINE PROFILEon 3 Bilirubin Ql (U) Negative Normal NEGATIVE [facility] Comment on above: Performed By: #### U MICRO, ERUR #### [facility] [address] [place] [address] Dr. Karen Pierce Clarity (U) CLEAR Normal CLEAR [facility] Comment on above: Performed By: #### U MICRO, ERUR #### [facility] [address] [place] [address] Dr. Karen Pierce Color (U) YELLOW Normal YELLOW [facility] Comment on above: Performed By: #### U MICRO, ERUR #### [facility] [address] [place] [address] Dr. Karen Pierce ERUROLAND A micrscopic examina tion will be performed if indicated. Normal [facility] Comment on above: Performed By: #### U MICRO, ERUR #### [facility] [address] [place] [address] Dr. Karen Pierce Glucose Ql (U) Negative Normal NEGATIVE [facility] Comment on above: Performed By: #### U MICRO, ERUR #### [facility] [address] [address] [address] Karen Pierce Hemoglobin Ql (U) LARGE Abnormal NEGATIVE [facility] Comment on above: Performed By: #### U MICRO, ERUR #### [facility] [address] [place] [address] Dr. Karen Pierce Ketones Ql (U) Negative Normal NEGATIVE [facility] Comment on above: Performed By: #### U MICRO, ERUR #### [facility] [address] [place] [address] Dr. Karen Pierce LEUKOCYTES LARGE Abnormal NEGATIVE [facility] Comment on above: Performed By: #### U MICRO, ERUR #### [facility] [address] [place] [address] Dr. Karen Pierce Nitrite Ql (U) Positive Abnormal NEGATIVE [facility] Comment on above: Performed By: #### U MICRO, ERUR #### [facility] [address] [place] [address] Dr. Karen Pierce pH (U) 5.5 [pH] Normal 5-9 [facility] Comment on above: Performed By: #### U MICRO, ERUR #### [facility] [address] [place] [address] Dr. Karen Pierce Protein (U) [Mass/Vol] 100 mg/dL Abnormal NEGAT RAJI/ TRACE [facility] Comment on above: Performed By: #### U MICRO, ERUR #### [facility] [address] [place] [address] Dr. Karen Pierce SPEC GRAVITY 1.020 Normal 1.005-<=1. 025 [facility] Comment on above: Performed By: #### U MICRO, ERUR #### [facility] [address] [place] [address] Dr. Karen Pierce UR MICRO IND INDICATED Normal [facility] Comment on above: Performed By: #### U MICRO, ERUR #### [facility] [address] [place] [address] Dr. Karen Pierce Urobilinogen Qn (U) 1.0 {Tonio'U}/dL Normal 0.2 - 1. 0 [facility] Comment on above: Performed By: #### U MICRO, ERUR #### [facility] [address] [place] [address] Dr. Karen Pierce URINE MICROSCOPIC ONLYon BACTERIA SMALL Abnormal NONE SEEN [facility] Comment on above: Performed By: #### U MICRO, ERUR #### [facility] [address] [place] [address] Dr. Karen Pierce Bacteria identified Cx Nom (U) INDICATED Normal [facility] Comment on above: Performed By: #### U MICRO, ERUR #### [facility] [address] [place] [address] Dr. Karen Pierce CAST NONE SEEN Normal NONE SEEN [facility] Comment on above: Performed By: #### U MICRO, ERUR #### [facility] [address] [place] [address] Dr. Karen Pierce Crystals LM Nom (Urine sed) NONE SEEN Normal NONE SEEN [facility] Comment on above: Performed By: #### U MICRO, ERUR #### [facility] [address] [place] [address] Dr. Karen Pierce Epithelial cells LM Ql (Urine sed) NONE SEEN Normal NONE SEEN /RARE [facility] Comment on above: Performed By: #### U MICRO, ERUR #### [facility] [address] [place] [address] Dr. Karen Pierce MUCOUS NONE SEEN Normal NONE SEEN [facility] Comment on above: Performed By: #### U MICRO, ERUR #### [facility] [address] [place] [address] Dr. Karen Pierce RBC (U) [#/Vol] /uL Abnormal 0-2 [facility] Comment on above: Performed By: #### U MICRO, ERUR #### [facility] [address] [place] [address] Dr. Karen Pierce WBC 50-75 Abnormal NONE SEEN [facility] Comment on above: Performed By: #### U MICRO, ERUR #### [facility] [address] [place] [address] Dr. Karen Pierce Operative Reporton 3 Operative Report [id number]#[id number]:127 Normal [facility] Consultation Noteon 09-10-19 23 Consultation Note [id number]:127 Normal [facility] Consultation Note [id number]:127 Normal [facility] Consultation Note [id number]#1.00CD:127 Normal [facility] Lab Reportson 09-09-2022 Lab Reports [id number]#[id number]:127 Normal [facility] RAD - MISCon 09-09-2022 RAD - MISC [id number]#[id number]:127 Normal [facility] PTH INTACTon 09-05-2022 PTH, Intact 38 pg/mL Normal 15-65 [facility] Comment on above: Performed By: #### P THINT #### [facility] [address] [place] [address] Dr. Karen Pierce FERRITINon 09-04-2022 Ferritin [Mass/Vol] 49.0 ng/mL Normal 26.0-388.0 [facility] Comment on above: Performed By: #### U RTPCR #### [facility] [address] [place] [address] Dr. Karen Pierce IRON AND TIBCon 09-04-2022 % SATURATION 10.3 % Normal [facility] Comment on above: Performed By: #### U RTPCR #### [facility] [address] [place] [address] Dr. Karen Pierce Iron [Mass/Vol] 33.0 ug/dL Critically low 65.0-175.0 [facility] Comment on above: Performed By: #### U RTPCR #### [facility] [address] [place] [address] Dr. Karen Pierce TIBC DIRECT 319.0 ug/dL Normal 250.0-450. 0 [facility] Comment on above: Performed By: #### U RTPCR #### [facility] [address] [place] [address] Dr. Karen Pierce UA RANDOMon 09-04-2022 Bilirubin Ql (U) Negative Normal NEGATIVE [facility] Comment on above: Performed By: #### U A #### [facility] [address] [place] [address] Dr. Karen Pierce Clarity (U) CLEAR Normal CLEAR [facility] Comment on above: Performed By: #### U A #### [facility] [address] [place] [address] Dr. Karen Pierce Color (U) LT. YELLOW Normal YELLOW [facility] Comment on above: Performed By: #### U A #### [facility] [address] [place] [address] Dr. Karen Pierce Glucose Ql (U) Negative Normal NEGATIVE [facility] Comment on above: Performed By: #### U A #### [facility] [address] [place] [address] Dr. Karen Pierce Hemoglobin Ql (U) MODERATE Abnormal NEGATIVE [facility] Comment on above: Performed By: #### U A #### [facility] [address] [place] [address] Dr. Karen Pierce Ketones Ql (U) Negative Normal NEGATIVE [facility] Comment on above: Performed By: #### U A #### [facility] [address] [place] [address] Dr. Karen Pierce LEUKOCYTES LARGE Abnormal NEGATIVE [facility] Comment on above: Performed By: #### U A #### [facility] [address] [place] [address] Dr. Karen Pierce Nitrite Ql (U) Positive Abnormal NEGATIVE [facility] Comment on above: Performed By: #### U A #### [facility] [address] [place] [address] Dr. Karen Pierce pH (U) 6.5 [pH] Normal 5-9 [facility] Comment on above: Performed By: #### U A #### [facility] [address] [place] [address] Dr. Karen Pierce SPEC GRAVITY 1.015 Normal 1.005-<=1. 025 [facility] Comment on above: Performed By: #### U A #### [facility] [address] [place] [address] Dr. Karen Pierce UA PROTEIN 30 mg/dl Abnormal NEGATIVE/ TRACE [facility] Comment on above: Performed By: #### U A #### [facility] [address] [place] [address] Dr. Karen Pierce Urobilinogen Qn (U) 0.2 {Tonio'U}/dL Normal 0.2 - 1. 0 [facility] Comment on above: Performed By: #### U A #### [facility] [address] [place] [address] Dr. Karen Pierce URINE T PROTEIN CREAT RATIOo n 09-04-2022 Protein (U) [Mass/Vol] 65.2 mg/dL Critically high <=12.0 [facility] Comment on above: Performed By: #### U RTPCR #### [facility] [address] [place] [address] Dr. Karen Pierce UR PROT CREAT RAT 0.76 Normal [facility] Comment on above: Performed By: #### U RTPCR #### [facility] [address] [place] [address] Dr. Karen Pierce URINE CREAT 85.95 mg/dL Normal 20.00-300. 00 [facility] Comment on above: Performed By: #### U RTPCR #### [facility] [address] [place] [address] Dr. Karen Pierce VIT B12 AND FOLATEon 023 Cobalamin (Vitamin B12) [Mass/Vol] 279.0 pg/mL Normal 193.0-986. 0 [facility] Comment on above: Performed By: #### U RTPCR #### [facility] [address] [place] [address] Dr. Karen Pierce FOLATE 17.80 ng/mL Normal 8.60-58.90 [facility] Comment on above: Performed By: #### U RTPCR #### [facility] [address] [place] [address] Dr. Karen Pierce VITAMIN D 25 OHon 09-04-2022 VIT D 25-OH 29.9 ng/mL Normal [facility] Comment on above: Performed By: #### U RTPCR #### [facility] [address] [place] [address] Dr. Karen Pierce VIT D RANGES SEE BELOW Normal [facility] Comment on above: Result Comment: <20 ng/mL Vit D deficient 20 - <30 ng/mL Vit D insufficient 30 - 100 ng/mL Vit D sufficient >100 ng/mL Potential Toxicity Performed By: #### U RTPCR #### [facility] [address] [place] [address] Dr. Karen Pierce CBC AUTO DIFFon 09-02-2022 BASO # 0.1 103/ul Normal 0.0-0.1 [facility] Comment on above: Performed By: #### C BC #### [facility] [address] [place] [address] Dr. Karen Pierce Basophils/100 WBC (Bld) 0.7 % Normal 0.2-2.0 [facility] Comment on above: Performed By: #### C BC #### [facility] [address] [place] [address] Dr. Karen Pierce EO # 0.2 103/ul Normal 0.0-0.7 [facility] Comment on above: Performed By: #### C BC #### [facility] [address] [place] [address] Dr. Karen Pierce Eosinophils/100 WBC (Bld) 2.6 % Normal 0.9-7.0 [facility] Comment on above: Performed By: #### C BC #### [facility] [address] [place] [address] Dr. Karen Pierce Erythrocyte distribution width (RBC) [Ratio] 13.8 % Normal 11.0-15.0 [facility] Comment on above: Performed By: #### C BC #### [facility] [address] [place] [address] Dr. Karen Pierce Hematocrit (Bld) [Volume fraction] 38.9 % Critically low 42.0-54.0 [facility] Comment on above: Performed By: #### C BC #### [facility] [address] [place] [address] Dr. Karen Pierce Hemoglobin (Bld) [Mass/Vol] 12.3 g/dL Critically low 14.0-18.0 [facility] Comment on above: Performed By: #### C BC #### [facility] [address] [place] [address] Dr. Karen Pierce IG # 0.01 10e3/ul Normal 0.00-0.03 [facility] Comment on above: Performed By: #### C BC #### [facility] [address] [place] [address] Dr. Karen Pierce IG % 0.1 % Normal 0.0-0.5 [facility] Comment on above: Performed By: #### C BC #### [facility] [address] [place] [address] Dr. Karen Pierce LYMPH # 1.9 103/ul Normal 1.2-3.8 [facility] Comment on above: Performed By: #### C BC #### [facility] [address] [place] [address] Dr. Karen Pierce Lymphocytes/100 WBC (Bld) 27.0 % Normal 20.5-60.0 [facility] Comment on above: Performed By: #### C BC #### [facility] [address] [place] [address] Dr. Karen Pierce MANUAL DIFF REQ NO Normal [facility] Comment on above: Performed By: #### C BC #### [facility] [address] [place] [address] Dr. Karen Pierce MCH (RBC) [Entitic mass] 27.8 pg Normal 25.9-34.0 [facility] Comment on above: Performed By: #### C BC #### [facility] [address] [place] [address] Dr. Karen Pierce MCHC (RBC) [Mass/Vol] 31.6 g/dL Normal 29.9-35.2 [facility] Comment on above: Performed By: #### C BC #### [facility] [address] [place] [address] Dr. Karen Pierce MCV (RBC) [Entitic vol] 87.8 fL Normal 80.0-94.0 [facility] Comment on above: Performed By: #### C BC #### [facility] [address] [place] [address] Dr. Karen Pierce MONO # 0.6 103/ul Normal 0.3-0.8 [facility] Comment on above: Performed By: #### C BC #### [facility] [address] [place] [address] Dr. Karen Pierce Monocytes/100 WBC (Bld) 8.8 % Normal 1.7-12.0 [facility] Comment on above: Performed By: #### C BC #### [facility] [address] [place] [address] Dr. Karen Pierce NEUT # 4.4 103/ul Normal 1.4-6.5 [facility] Comment on above: Performed By: #### C BC #### [facility] [address] [place] [address] Dr. Karen Pierce Neutrophils/100 WBC (Bld) 60.8 % Normal 43.0-75.0 [facility] Comment on above: Performed By: #### C BC #### [facility] Laboratory [address] [place] [address] Dr. Karen Pierce Platelet mean volume (Bld) [Entitic vol] 9.9 fL Normal 9.5-13.5 [facility] Comment on above: Performed By: #### C BC #### [facility] [address] [place] [address] Dr. Karen Pierce PLT 181 103/ul Normal 150-450 [facility] Comment on above: Performed By: #### C BC #### [facility] [address] [place] [address] Dr. Karen Pierce RBC 4.43 106/ul Critically low 4.70-6.10 [facility] Comment on above: Performed By: #### C BC #### [facility] [address] [place] [address] Dr. Karen Pierce WBC 7.2 103/ul Normal 4.0-11.0 [facility] Comment on above: Performed By: #### C BC #### [facility] [address] [address] [address] Karen Pierce MAGNESIUMon 09-02-2022 Magnesium [Mass/Vol] 2.2 mg/dL Normal 1.8-2.4 [facility] Comment on above: Performed By: #### U A #### [facility] [address] [place] [address] Dr. Karen Pierce PHOSPHORUSon 09-02-2022 Phosphate [Mass/Vol] 2.9 mg/dL Normal 2.6-4.7 [facility] Comment on above: Performed By: #### U A #### [facility] [address] [place] [address] Dr. Karen Pierce PROF 14(COMP METB)on 023 Albumin [Mass/Vol] 3.5 g/dL Normal 3.4-5.0 [facility] Comment on above: Performed By: #### P THINT #### [facility] [address] [place] [address] Dr. Karen Pierce Albumin/Globulin [Mass ratio] 1.0 {ratio} Normal [facility] Comment on above: Performed By: #### P THINT #### [facility] [address] [place] [address] Dr. Karen Pierce ALP [Catalytic activity/Vol] 86 U/L Normal 46-116 [facility] Comment on above: Performed By: #### P THINT #### [facility] [address] [place] [address] Dr. Karen Pierce ALT [Catalytic activity/Vol] 17 U/L Normal 16-63 [facility] Comment on above: Performed By: #### P THINT #### [facility] [address] [place] [address] Dr. Karen Pierce Anion gap [Moles/Vol] 13.0 mmol/L Normal [facility] Comment on above: Performed By: #### P THINT #### [facility] [address] [place] [address] Dr. Karen Pierce AST [Catalytic activity/Vol] 14 U/L Critically low 15-37 [facility] Comment on above: Performed By: #### P THINT #### [facility] [address] [address] [address] Karen Pierce Bilirubin [Mass/Vol] 0.3 mg/dL Normal 0.2-1.0 [facility] Comment on above: Performed By: #### P THINT #### [facility] [address] [address] [address] Karen Pierce CO2 [Moles/Vol] 27.6 mmol/L Normal 21.0-32.0 [facility] Comment on above: Performed By: #### P THINT #### [facility] [address] [place] [address] Dr. Karen Pierce Creatinine [Mass/Vol] 1.48 mg/dL Critically high 0.70-1.30 [facility] Comment on above: Performed By: #### P THINT #### [facility] [address] [place] [address] Dr. Karen Pierce EGFR-AF [place] 56 mL/min/1.73m2 Critically low >=60 [facility] Comment on above: Performed By: #### P THINT #### [facility] [address] [place] [address] Dr. Karen Pierce EGFR-NON AF [place] 46 mL/min/1.73m2 Critically low >=60 [facility] Comment on above: Performed By: #### P THINT #### [facility] [address] [place] [address] Dr. Karen Pierce Globulin (S) [Mass/Vol] 3.6 g/dL Normal [facility] Comment on above: Performed By: #### P THINT #### [facility] [address] [place] [address] Dr. Karen Pierce Glucose [Mass/Vol] 105 mg/dL Normal 74-106 [facility] Comment on above: Performed By: #### P THINT #### [facility] [address] [place] [address] Dr. Karen Pierce Protein [Mass/Vol] 7.1 g/dL Normal 6.4-8.2 [facility] Comment on above: Performed By: #### P THINT #### [facility] [address] [place] [address] Dr. Karen Pierce Sodium [Moles/Vol] 142 mmol/L Normal 136-145 [facility] Comment on above: Performed By: #### P THINT #### [facility] [address] [place] [address] Dr. Karen Pierce Urea nitrogen/Creatinine [Mass ratio] 16.2 mg/mg Normal [facility] Comment on above: Performed By: #### P THINT #### [facility] [address] [place] [address] Dr. Karen Pierce PROF CHEM 8 (BAS METB)on Anion gap [Moles/Vol] 11.1 mmol/L Normal [facility] Comment on above: Performed By: #### U A #### [facility] [address] [place] [address] Dr. Karen Pierce Calcium [Mass/Vol] 8.7 mg/dL Normal 8.5-10.1 [facility] Comment on above: Performed By: #### U A #### [facility] [address] [place] [address] Dr. Karen Pierce Performed By: #### P THINT #### [facility] [address] [place] [address] Dr. Karen Pierce Chloride [Moles/Vol] 106 mmol/L Normal 98-107 [facility] Comment on above: Performed By: #### U A #### [facility] [address] [place] [address] Dr. Karen Pierce Performed By: #### P THINT #### [facility] [address] [place] [address] Dr. Karen Pierce CO2 [Moles/Vol] 28.5 mmol/L Normal 21.0-32.0 [facility] Comment on above: Performed By: #### U A #### [facility] [address] [place] [address] Dr. Karen Pierce Creatinine [Mass/Vol] 1.44 mg/dL Critically high 0.70-1.30 [facility] Comment on above: Performed By: #### U A #### [facility] [address] [address] [address] Karen Pierce EGFR-AF [place] 58 mL/min/1.73m2 Critically low >=60 [facility] Comment on above: Performed By: #### U A #### [facility] [address] [address] [address] Karen Pierce EGFR-NON AF [place] 47 mL/min/1.73m2 Critically low >=60 [facility] Comment on above: Performed By: #### U A #### [facility] [address] [address] [address] Karen Pierce Glucose [Mass/Vol] 104 mg/dL Normal 74-106 [facility] Comment on above: Performed By: #### U A #### [facility] [address] [place] [address] Dr. Karen Pierce Potassium [Moles/Vol] 4.6 mmol/L Normal 3.5-5.1 [facility] Comment on above: Performed By: #### U A #### [facility] [address] [address] [address] Karen Pierce Performed By: #### P THINT #### [facility] [address] [place] [address] Dr. Karen Pierce Sodium [Moles/Vol] 141 mmol/L Normal 136-145 [facility] Comment on above: Performed By: #### U A #### [facility] [address] [address] [address] Karen Pierce Urea nitrogen [Mass/Vol] 24.0 mg/dL Critically high 7.0-18.0 [facility] Comment on above: Performed By: #### U A #### [facility] [address] [address] [address] Karen Pierce Performed By: #### P THINT #### [facility] [address] [place] [address] Dr. Karen Pierce Urea nitrogen/Creatinine [Mass ratio] 16.7 mg/mg Normal [facility] Comment on above: Performed By: #### U A #### [facility] [address] [place] [address] Dr. Karen Pierce PROTIMEon 09-02-2022 INR Coag (PPP) [Relative time] 1.01 {INR} Normal [facility] Comment on above: Performed By: #### P TT, PT #### [facility] [address] [place] [address] Dr. Karen Pierce INR GUIDELINES SEE BELOW Normal [facility] Comment on above: Result Comment: EMY RED INR: 2.0 - 3.0 CONDITIONS NOT LISTED BELOW 2.5 - 3.5 FOR PROSTHETIC HEART VALVE REPLACEMENT 2.5 - 3.5 RECURRENT THROMBOSIS Performed By: #### P TT, PT #### [facility] [address] [place] [address] Dr. Karen Pierce PT Coag (PPP) [Time] 10.7 s Normal 9.0-11.6 [facility] Comment on above: Performed By: #### P TT, PT #### [facility] [address] [place] [address] Dr. Karen Pierce PTTon 09-02-2022 aPTT Coag (Bld) [Time] 28.2 s Normal 22.3-36.2 [facility] Comment on above: Performed By: #### P TT, PT #### [facility] [address] [place] [address] Dr. Karen Pierce URIC ACID SERUMon 09-02-2022 Urate [Mass/Vol] 4.8 mg/dL Normal 3.5-7.2 [facility] Comment on above: Performed By: #### P THINT #### [facility] [address] [place] [address] Dr. Karne Pierce Consent for Procedure/Surger yon 08-27-2022 Consent for Procedure/Surgery [id number]:127 Normal [facility] Formson 08-27-2022 Forms [id number]:127 Normal [facility] Creatinine (Bld) [Mass/Vol]O rdered By: Margarito Valentine on 08-16-2022 Creatinine [Mass/Vol] 1.5 mg/dL 0.6-1.3 [facility] Comment on above: ER/ESD physician is notified/shown all ISTAT results.Critical values may be confirmed by laboratory testing ifdeemed necessary by ER attending doctor. Creatinine (Bld) [Mass/Vol]O rdered By: Heather Schwab on 07-24-2022 Creatinine [Mass/Vol] 1.6 mg/dL 0.6-1.3 [facility] Comment on above: ER/ESD physician is notified/shown all ISTAT results.Critical values may be confirmed by laboratory testing ifdeemed necessary by ER attending doctor. No Panel InformationOrdered By: Heather Schwab on 07-24-2022 POC Estimated GFR 51 [facility] Comment on above: GFR estimated refere nce range: According to KDOQI guidelines, <60 ml/min/1.73m2 is sufficient to diagnose a patient with chronic kidney disease. POC Estimated GFR Non- Amer 42 [facility] Blood activated clotting lacho e by coagulation assayOrdered By: Margarito Valentine on 07-02-2022 ACT Coag (Bld) 215 s 90-139 [facility] Comment on above: Reference Range: 90- 139 (Non-heparinized) Basophils Auto (Bld) [#/Vol] Ordered By: Margarito Valentine on 06-21-2022 Basophils (Bld) [#/Vol] 0.1 10*3/uL 0.0-0.2 [facility] Basophils/100 WBC Auto (Bld) Ordered By: Margarito Valentine on 06-21-2022 Basophils/100 WBC (Bld) 0.9 % . F [facility] Creatinine and Glomerular fi ltration rate.predicted panel (S/P/Bld)Ordered By: Margarito Valentine on 06-21-2022 Creatinine [Mass/Vol] 1.24 mg/dL 0.64-1.27 [facility] Eosinophils Auto (Bld) [#/Vo l]Ordered By: Margarito Valentine on 06-21-2022 Eosinophils (Bld) [#/Vol] 0.2 10*3/uL 0.0-0.45 [facility] Eosinophils/100 WBC Auto (Bl d)Ordered By: Margarito Valentine on 06-21-2022 Eosinophils/100 WBC (Bld) 2.5 % . [facility] Erythrocyte distribution wid th Auto (RBC) [Ratio]Ordered By: Margarito Valentine on 06-21-2022 Erythrocyte distribution width (RBC) [Ratio] 18.0 % 12.0-14.8 [facility] Estimated glomerular filtrat ion rate (GFR) non- AmericanOrdered By: Margarito Valentine on 06-21-2022 GFR/1.73 sq M.predicted among non-blacks MDRD (S/P/Bld) [Vol rate/Area] 56 mL/Min [facility] Hematocrit Auto (Bld) [Volum e fraction]Ordered By: Margarito Valentine on 06-21-2022 Hematocrit (Bld) [Volume fraction] 37.7 % 38.8-50.0 [facility] Hemoglobin [Mass/volume] in BloodOrdered By: Margarito Valentine on 06-21-2022 Hemoglobin (Bld) [Mass/Vol] 12.3 g/dL 13.0-17.0 [facility] Leukocytes [#/volume] correc phil for nucleated erythrocytes in Blood by Automated counOrdered By: Margarito Valentine on 06-21-2022 WBC corrected for nucl RBC Auto (Bld) [#/Vol] 7.1 10*3/uL 4.1-10.5 [facility] Lymphocytes Auto (Bld) [#/Vo l]Ordered By: Margarito Valentine on 06-21-2022 Lymphocytes (Bld) [#/Vol] 1.3 10*3/uL 1.00-4.8 [facility] Lymphocytes/100 WBC Auto (Bl d)Ordered By: Margarito Valentine on 06-21-2022 Lymphocytes/100 WBC (Bld) 18.7 % . [facility] MCH Auto (RBC) [Entitic mass ]Ordered By: Margarito Valentine on 06-21-2022 MCH (RBC) [Entitic mass] 28.2 pg 27.5-35.2 [facility] MCHC Auto (RBC) [Mass/Vol]Or dered By: Margarito Valentine on 06-21-2022 MCHC (RBC) [Mass/Vol] 32.6 g/dL 32.5-35.6 [facility] MCV Auto (RBC) [Entitic vol] Ordered By: Margarito Valentine on 06-21-2022 MCV (RBC) [Entitic vol] 86.5 fL 83.5-101 F [facility] Monocytes Auto (Bld) [#/Vol] Ordered By: Margarito Valentine on 06-21-2022 Monocytes (Bld) [#/Vol] 0.7 10*3/uL 0.0-0.8 [facility] Monocytes/100 WBC Auto (Bld) Ordered By: Margarito Valentine on 06-21-2022 Monocytes/100 WBC (Bld) 10.3 % . F [facility] Neutrophils Auto (Bld) [#/Vo l]Ordered By: Margarito Valentine on 06-21-2022 Neutrophils (Bld) [#/Vol] 4.8 10*3/uL 1.8-7.7 [facility] Neutrophils/100 WBC Auto (Bl d)Ordered By: Margarito Valentine on 06-21-2022 Neutrophils/100 WBC (Bld) 67.6 % . [facility] No Panel InformationOrdered By: Margarito Valentine on 06-21-2022 Estimated GFR () > 60 mL/Min [facility] Comment on above: GFR estimated refere nce range: According to KDOQI guidelines, <60 ml/min/1.73m2 is sufficient to diagnose a patient with chronic kidney disease. Pharmacy Creatinine Clearance (Chem N/A [facility] Nucleated erythrocytes [Pres ence] in Blood by Automated countOrdered By: Margarito Valentine on 06-21-2022 Nucleated RBC Auto Ql (Bld) 0.1 /100{WBC} 0-0.5 [facility] Platelet mean volume Auto (B ld) [Entitic vol]Ordered By: Margarito Valentine on 06-21-2022 Platelet mean volume (Bld) [Entitic vol] 8.2 fL 6.6-10.1 [facility] Platelets Auto (Bld) [#/Vol] Ordered By: Margarito Valentine on 06-21-2022 Platelets (Bld) [#/Vol] 149 10*3/uL 150-450 [facility] RBC Auto (d) [#/Vol]Ordere d By: Margarito Valentine on 06-21-2022 RBC (Bld) [#/Vol] 4.36 10*6/uL 3.90-5.60 [facility] Serum or plasma anion gap de terminationOrdered By: Margarito Valentine on 06-21-2022 Anion gap [Moles/Vol] 10.8 mmol/L 6.0-15.0 [facility] Serum or plasma calcium elan urement (mass/volume)Ordered By: Margarito Valentine on 06-21-2022 Calcium [Mass/Vol] 8.8 mg/dL 8.2-10.2 [facility] Serum or plasma chloride herb surement (moles/volume)Ordered By: Margarito Valentine on 06-21-2022 Chloride [Moles/Vol] 107 mmol/L 95-[address] [facility] Serum or plasma glucose elan urement (mass/volume)Ordered By: Margarito Valentine on 06-21-2022 Glucose [Mass/Vol] 103 mg/dL 70-100 [facility] Comment on above: ADA recommended refe rence rangeRandom Glucose Reference Range is dependent on time and content of last meal. Glucose of more than 200 mg/dL in a nonstressed, ambulatory subject supports the diagnosis of Diabetes Mellitus. Serum or plasma potassium me asurement (moles/volume)Ordered By: Margarito Valentine on 06-21-2022 Potassium [Moles/Vol] 4.2 mmol/L 3.5-5.1 [facility] Serum or plasma sodium measu rement (moles/volume)Ordered By: Margarito Valentine on 06-21-2022 Sodium [Moles/Vol] 138 mmol/L 136-146 [facility] Serum or plasma total carbon dioxide measurement (moles/volume)Ordered By: Margarito Valentine on 06-21-2022 CO2 [Moles/Vol] 24.4 mmol/L 22.0-30.0 [facility] Serum or plasma urea nitroge n measurement (mass/volume)Ordered By: Margarito Valentine on 06-21-2022 Urea nitrogen [Mass/Vol] 18 mg/dL 02-15 [facility] WBC Auto (Bld) [#/Vol]Ordere d By: Margarito Valentine on 06-21-2022 WBC (Bld) [#/Vol] 7.1 10*3/uL 4.1-10.5 [facility] Office Visit (Cardiology)on 06-03-2022 Follow-up visit [...] Complaint ALEX ANDERSON is being seen for [facility] [place]. 76-year-old white male who I saw [...] Signs Recorded: 03Jun2022 03:38PM Heart Rate71, Apical Rxforltw631, LUE, Sitting Dzcmipzjb53, LUE, Sitting Height6 ft 2 in Vubzmy645 lb BMI Lvkceataxt01.45 kg/m2 BSA Calculated2.2 Tobacco Useb) No PHQ-2 [...] , regular (more content not included)... Normal [place] Tobacco Screening.on 023 Adult depression screening assessment No [facility] [employer] 250 DO Work Phone: Fall risk assessment a) No falls within the last year [facility] [employer] 250 DO Work Phone: Tobacco use status CPHS b) No [facility] [employer] 250 DO Work Phone: Basophils Auto (Bld) [#/Vol] Ordered By: Bernabe Cr on 05-22-2022 Basophils (Bld) [#/Vol] 0.1 10*3/uL 0.0-0.2 [facility] Basophils/100 WBC Auto (Bld) Ordered By: Bernabe Cr on 05-22-2022 Basophils/100 WBC (Bld) 1.2 % . F [facility] Creatinine and Glomerular fi ltration rate.predicted panel (S/P/Bld)Ordered By: Bernabe Cr on 05-22-2022 Creatinine [Mass/Vol] 1.78 mg/dL 0.64-1.27 [facility] Eosinophils Auto (Bld) [#/Vo l]Ordered By: Bernabe Cr on 05-22-2022 Eosinophils (Bld) [#/Vol] 0.3 10*3/uL 0.0-0.45 [facility] Eosinophils/100 WBC Auto (Bl d)Ordered By: Bernabe Cr on 05-22-2022 Eosinophils/100 WBC (Bld) 3.6 % . [facility] Erythrocyte distribution wid th Auto (RBC) [Ratio]Ordered By: Bernabe Cr on 05-22-2022 Erythrocyte distribution width (RBC) [Ratio] 15.3 % 12.0-14.8 [facility] Estimated glomerular filtrat ion rate (GFR) non- AmericanOrdered By: Bernabe Cr on 05-22-2022 GFR/1.73 sq M.predicted among non-blacks MDRD (S/P/Bld) [Vol rate/Area] 37 mL/Min [facility] Hematocrit Auto (Bld) [Volum e fraction]Ordered By: Bernabe Cr on 05-22-2022 Hematocrit (Bld) [Volume fraction] 36.2 % 38.8-50.0 [facility] Hemoglobin [Mass/volume] in BloodOrdered By: Bernabe Cr on 05-22-2022 Hemoglobin (Bld) [Mass/Vol] 11.7 g/dL 13.0-17.0 [facility] Leukocytes [#/volume] correc phil for nucleated erythrocytes in Blood by Automated counOrdered By: Bernabe Cr on 05-22-2022 WBC corrected for nucl RBC Auto (Bld) [#/Vol] 8.1 10*3/uL 4.1-10.5 [facility] Lymphocytes Auto (Bld) [#/Vo l]Ordered By: Bernabe Cr on 05-22-2022 Lymphocytes (Bld) [#/Vol] 1.4 10*3/uL 1.00-4.8 [facility] Lymphocytes/100 WBC Auto (Bl d)Ordered By: Bernabe Cr on 05-22-2022 Lymphocytes/100 WBC (Bld) 16.9 % . [facility] MCH Auto (RBC) [Entitic mass ]Ordered By: Bernabe Cr on 05-22-2022 MCH (RBC) [Entitic mass] 27.4 pg 27.5-35.2 [facility] MCHC Auto (RBC) [Mass/Vol]Or dered By: Bernabe Cr on 05-22-2022 MCHC (RBC) [Mass/Vol] 32.5 g/dL 32.5-35.6 [facility] MCV Auto (RBC) [Entitic vol] Ordered By: Bernabe Cr on 05-22-2022 MCV (RBC) [Entitic vol] 84.3 fL 83.5-101 F [facility] Monocytes Auto (Bld) [#/Vol] Ordered By: Bernabe Cr on 05-22-2022 Monocytes (Bld) [#/Vol] 0.8 10*3/uL 0.0-0.8 [facility] Monocytes/100 WBC Auto (Bld) Ordered By: Bernabe Cr on 05-22-2022 Monocytes/100 WBC (Bld) 10.1 % . F [facility] Neutrophils Auto (Bld) [#/Vo l]Ordered By: Bernabe Cr on 05-22-2022 Neutrophils (Bld) [#/Vol] 5.6 10*3/uL 1.8-7.7 [facility] Neutrophils/100 WBC Auto (Bl d)Ordered By: Bernabe Cr on 05-22-2022 Neutrophils/100 WBC (Bld) 68.2 % . [facility] No Panel InformationOrdered By: Bernabe Cr on 05-22-2022 Estimated GFR () 45 mL/Min [facility] Comment on above: GFR estimated refere nce range: According to KDOQI guidelines, <60 ml/min/1.73m2 is sufficient to diagnose a patient with chronic kidney disease. Pharmacy Creatinine Clearance (Chem 39.77 [facility] Nucleated erythrocytes [Pres ence] in Blood by Automated countOrdered By: Bernabe Cr on 05-22-2022 Nucleated RBC Auto Ql (Bld) 0.1 /100{WBC} 0-0.5 [facility] Platelet mean volume Auto (B ld) [Entitic vol]Ordered By: Bernabe Cr on 05-22-2022 Platelet mean volume (Bld) [Entitic vol] 8.7 fL 6.6-10.1 [facility] Platelets Auto (Bld) [#/Vol] Ordered By: Bernabe Cr on 05-22-2022 Platelets (Bld) [#/Vol] 198 10*3/uL 150-450 [facility] RBC Auto (Bld) [#/Vol]Ordere d By: Bernabe Cr on 05-22-2022 RBC (Bld) [#/Vol] 4.29 10*6/uL 3.90-5.60 [facility] Serum or plasma anion gap de terminationOrdered By: Bernabe Cr on 05-22-2022 Anion gap [Moles/Vol] 13.3 mmol/L 6.0-15.0 [facility] Serum or plasma calcium elan urement (mass/volume)Ordered By: Bernabe Cr on 05-22-2022 Calcium [Mass/Vol] 8.3 mg/dL 8.2-10.2 [facility] Serum or plasma chloride herb surement (moles/volume)Ordered By: Bernabe Cr on 05-22-2022 Chloride [Moles/Vol] 104 mmol/L 95-[address] [facility] Serum or plasma glucose elan urement (mass/volume)Ordered By: Bernabe Cr on 05-22-2022 Glucose [Mass/Vol] 180 mg/dL 70-100 [facility] Comment on above: ADA recommended refe rence rangeRandom Glucose Reference Range is dependent on time and content of last meal. Glucose of more than 200 mg/dL in a nonstressed, ambulatory subject supports the diagnosis of Diabetes Mellitus. Serum or plasma potassium me asurement (moles/volume)Ordered By: Bernabe Cr on 05-22-2022 Potassium [Moles/Vol] 3.3 mmol/L 3.5-5.1 [facility] Serum or plasma sodium measu rement (moles/volume)Ordered By: Bernabe Cr on 05-22-2022 Sodium [Moles/Vol] 137 mmol/L 136-146 [facility] Serum or plasma total carbon dioxide measurement (moles/volume)Ordered By: Bernabe Cr on 05-22-2022 CO2 [Moles/Vol] 23.0 mmol/L 22.0-30.0 [facility] Serum or plasma urea nitroge n measurement (mass/volume)Ordered By: Bernabe Cr on 05-22-2022 Urea nitrogen [Mass/Vol] 21 mg/dL 02-15 [facility] WBC Auto (Bld) [#/Vol]Ordere d By: Bernabe Cr on 05-22-2022 WBC (Bld) [#/Vol] 8.1 10*3/uL 4.1-10.5 [facility] No Panel InformationOrdered By: Bernabe Cr on 05-21-2022 25-Hydroxy Vitamin D Total 15.9 ng/mL 30-100 [facility] Comment on above: VITAMIN D STATUS 25( [place])VITAMIN D RANGE (ng/mL) Deficient <20 Insufficient 20 to <30Sufficient 30 to 100Reference: Sixto MF,Federico NC, Palomo LESLIE, et al. Evaluation,treatment, and prevention of vitamin D deficiency; an Endocrine Society clinical practice guideline. JCEM. 2010; 96(7):1911-30. Vitamin C level 0.2 mg/dL 0.4-2.0 [facility] Comment on above: This test was devemelia balderrama and its performance characteristicsdetermined by [employer]. It has not been cleared orapproved by the Food and Drug Administration.Vitamin C deficiency is generally defined as plasma orserum concentrations less than 0.2 mg/dL and levels between0.2 and 0.4 mg/dL are considered low.Performed at: [address] [id number] Director: Mamadou Rodriguez MD, Phone: [phone] Folate [Mass/volume] in Seru m or PlasmaOrdered By: Taz Barnes on 05-20-2022 Folate [Mass/Vol] 5.5 ng/mL >5.9 [facility] Comment on above: Folate reference ran ge: >5.9 ng/mlThe WHO technical consultation on folate and vitamin [id number] has determined that folate concentrations lessthan 4 ng/ml are considered deficient. Laboratory - Chemistry and C hemistry - challengeOrdered By: Taz Barnes on 05-20-2022 Cobalamin (Vitamin B12) [Mass/Vol] 169 pg/mL 180-914 [facility] No Panel InformationOrdered By: Taz Barnes on 05-20-2022 Ova and Parasite Result 1 [facility] Ova and Parasite Result 1 [facility] Ova or parasites identificat ionOrdered By: Taz Barnes on 05-20-2022 Ova and parasites identified LM Nom (Unsp spec) [facility] Ova and parasites identified LM Nom (Unsp spec) [facility] Laboratory - Chemistry and C hemistry - challengeOrdered By: Janice Gonzalez on 05-19-2022 Magnesium [Mass/Vol] 1.7 mg/dL 1.6-2.[address] [facility] Automated erythrocytes count in urine sediment (number/area)Ordered By: Taz Barnes on 05-18-2022 RBC Auto (Urine sed) [#/Area] 50-100 [HPF] 0-4 [facility] Automated leukocytes count i n urine sediment (number/area)Ordered By: Taz Barnes on 05-18-2022 WBC Auto (Urine sed) [#/Area] Innumerable [HPF] 0-4 [facility] Automated urine hyaline cast s count (number/volume)Ordered By: Taz Barnes on 05-18-2022 Hyaline casts Auto (U) [#/Vol] None seen [LPF] 0-1 [facility] Bilirubin Test strip Ql (U)O rdered By: Taz Barnes on 05-18-2022 Bilirubin Ql (U) Negative Negative [facility] Casts typing in urine sedime nt by light microscopyOrdered By: Taz Barnes on 05-18-2022 Casts LM Nom (Urine sed) None seen [LPF] None Seen [facility] Color Auto (U)Ordered By: Starr Branes on 05-18-2022 Color (U) Yellow Yellow [facility] Ketones Auto test strip (U) [Mass/Vol]Ordered By: Taz Barnes on 05-18-2022 Ketones (U) [Mass/Vol] Negative Negative Fi [facility] Nitrite Test strip Ql (U)Ord ered By: Taz Barnes on 05-18-2022 Nitrite Ql (U) Negative Negative [facility] Protein Auto test strip (U) [Mass/Vol]Ordered By: Taz Barnes on 05-18-2022 Protein (U) [Mass/Vol] 100 mg/dL Negative [facility] Specific gravity Auto test s trip (U) [Rel density]Ordered By: Taz Barnes on 05-18-2022 Specific gravity (U) [Rel density] 1.010 1.001-1.03 0 [facility] Squamous epithelial cells de tection in urine sediment by light microscopyOrdered By: Taz Barnes on 05-18-2022 Epithelial cells.squamous LM Ql (Urine sed) 1-2 [HPF] 0-2 [facility] Urine bacteria detection by automated methodOrdered By: Taz Barnes on 05-18-2022 Bacteria Auto Ql (U) None seen None Seen [facility] Urine clarity by refractomet ry automatedOrdered By: Taz Barnes on 05-18-2022 Clarity Refractometry automated (U) Turbid Clear [facility] Urine culture routineOrdered By: Taz Barnes on 05-18-2022 Bacteria identified Cx Nom (U) No Growth 2 Days [facility] Bacteria identified Cx Nom (U) No Growth 2 Days [facility] Urine glucose measurement by automated test strip (mass/volume)Ordered By: Taz Branes on 05-18-2022 Glucose Auto test strip (U) [Mass/Vol] Normal mg/dL Normal [facility] Urine hemoglobin detection b y automated test stripOrdered By: Taz Barnes on 05-18-2022 Hemoglobin Auto test strip Ql (U) 2+ Negative [facility] Urine leukocyte esterase det ection by automated test stripOrdered By: Taz Barnes on 05-18-2022 Leukocyte esterase Auto test strip Ql (U) 4+ Negative [facility] Urobilinogen Auto test strip (U) [Mass/Vol]Ordered By: Taz Barnes on 05-18-2022 Urobilinogen (U) [Mass/Vol] Normal mg/dL Normal [facility] Yeast detection in urine sed iment by light microscopyOrdered By: Taz Barnes on 05-18-2022 Yeast LM Ql (Urine sed) None seen [HPF] None Se en [facility] pH Auto test strip (U)Ordere d By: Taz Barens on 05-18-2022 pH (U) 7.5 [pH] 5.0-9.0 [facility] Activated partial thrombopla stin time (aPTT) in platelet poor plasma by coagulation aOrdered By: Taz Barnes on 05-16-2022 aPTT Coag (PPP) [Time] 29.5 s 25.1-36.5 [facility] Body fluid albumin measureme nt (mass/volume)Ordered By: Taz Barnes on 05-16-2022 Albumin (Body fld) [Mass/Vol] 2.9 g/dL 3.2-5.5 [facility] CBC AUTO DIFFon 05-16-2022 BASO # 0.0 103/ul Normal 0.0-0.1 [facility] Comment on above: Performed By: #### C BC #### [facility] [address] [place] [address] Dr. Karen Pierce Basophils/100 WBC (Bld) 0.3 % Normal 0.2-2.0 [facility] Comment on above: Performed By: #### C BC #### [facility] [address] [address] [address] Karen Pierce EO # 0.1 103/ul Normal 0.0-0.7 [facility] Comment on above: Performed By: #### C BC #### [facility] [address] [place] [address] Dr. Karen Pierce Eosinophils/100 WBC (Bld) 0.7 % Critically low 0.9-7.0 [facility] Comment on above: Performed By: #### C BC #### [facility] [address] [place] [address] Dr. Karen Pierce Erythrocyte distribution width (RBC) [Ratio] 14.8 % Normal 11.0-15.0 [facility] Comment on above: Performed By: #### C BC #### [facility] [address] [place] [address] Dr. Karen Pierce Hematocrit (Bld) [Volume fraction] 39.4 % Critically low 42.0-54.0 [facility] Comment on above: Performed By: #### C BC #### [facility] [address] [place] [address] Dr. Karen Pierce Hemoglobin (Bld) [Mass/Vol] 12.6 g/dL Critically low 14.0-18.0 [facility] Comment on above: Performed By: #### C BC #### [facility] [address] [place] [address] Dr. Karen Pierce IG # 0.04 10e3/ul Critically high 0.00-0.03 [facility] Comment on above: Performed By: #### C BC #### [facility] [address] [place] [address] Dr. Karen Pierce IG % 0.4 % Normal 0.0-0.5 [facility] Comment on above: Performed By: #### C BC #### [facility] [address] [place] [address] Dr. Karen Pierce LYMPH # 1.2 103/ul Normal 1.2-3.8 [facility] Comment on above: Performed By: #### C BC #### [facility] [address] [place] [address] Dr. Karen Pierce Lymphocytes/100 WBC (Bld) 11.8 % Critically low 20.5-60.0 [facility] Comment on above: Performed By: #### C BC #### [facility] [address] [place] [address] Dr. Karen Pierce MANUAL DIFF REQ NO Normal [facility] Comment on above: Performed By: #### C BC #### [facility] [address] [place] [address] Dr. Karen Pierce MCH (RBC) [Entitic mass] 27.5 pg Normal 25.9-34.0 [facility] Comment on above: Performed By: #### C BC #### [facility] [address] [place] [address] Dr. Karen Pierce MCHC (RBC) [Mass/Vol] 32.0 g/dL Normal 29.9-35.2 [facility] Comment on above: Performed By: #### C BC #### [facility] [address] [place] [address] Dr. Karen Pierce MCV (RBC) [Entitic vol] 86.0 fL Normal 80.0-94.0 [facility] Comment on above: Performed By: #### C BC #### [facility] [address] [place] [address] Dr. Karen Pierce MONO # 1.4 103/ul Critically high 0.3-0.8 [facility] Comment on above: Performed By: #### C BC #### [facility] [address] [place] [address] Dr. Karen Pierce Monocytes/100 WBC (Bld) 13.8 % Critically high 1.7-12. 0 [facility] Comment on above: Performed By: #### C BC #### [facility] [address] [place] [address] Dr. Karen Pierce NEUT # 7.6 103/ul Critically high 1.4-6.5 [facility] Comment on above: Performed By: #### C BC #### [facility] [address] [place] [address] Dr. Karen Pierce Neutrophils/100 WBC (Bld) 73.0 % Normal 43.0-75.0 [facility] Comment on above: Performed By: #### C BC #### [facility] [address], [place] [address] Dr. Karen Pierce Platelet mean volume (Bld) [Entitic vol] 10.6 fL Normal 9.5-13.5 [facility] Comment on above: Performed By: #### C BC #### [facility] [address] [address] [address] Karen Pierce PLT 193 103/ul Normal 150-450 [facility] Comment on above: Performed By: #### C BC #### [facility] [address] [address] [address] Karen Pierce RBC 4.58 106/ul Critically low 4.70-6.10 [facility] Comment on above: Performed By: #### C BC #### [facility] [address] [place] [address] Dr. Karen Pierce WBC 10.4 103/ul Normal 4.0-11.0 [facility] Comment on above: Performed By: #### C BC #### [facility] [address] [place] [address] ABD/PELVIS WO CONon [...] LORENZO SCHERER Date: 2022-05-16 09:21 Normal [facility] CULTURE URINEon 05-16-2022 CULTURE URINE Culture Observations : MODERATE GROWTH OF MIXED SKIN JAS. NO POTENTIAL PATHOGENS SEEN. Normal [facility] Comment on above: Performed By: #### U RTPCR #### [facility] [address] [address] [address] Karen Pierce Covid-19 PCR ([facility])on 04-26 SARS-CoV-2 (COVID-19) RNA KARI+probe Ql (Unsp spec) Not detected Normal NOT DETECTED [facility] Comment on above: Result Comment: When [...] for this test is supported by the [place] of [employer] and Human Service's declaration that [...] used). Performed By: #### U A #### [facility] [address] [place] [address] Dr. Karen Pierce Creatinine [Mass/volume] in UrineOrdered By: Taz Barnes on 05-16-2022 Creatinine (U) [Mass/Vol] 68.1 mg/dL [facility] Comment on above: No reference range e stablished ER URINE PROFILEon 2 Bilirubin Ql (U) Negative Normal NEGATIVE [facility] Comment on above: Performed By: #### U RTPCR #### [facility] [address] [place] [address] Dr. Karen Pierce Clarity (U) CLEAR Normal CLEAR [facility] Comment on above: Performed By: #### U RTPCR #### [facility] [address] [place] [address] Dr. Karen Pierce Color (U) YELLOW Normal YELLOW [facility] Comment on above: Performed By: #### U RTPCR #### [facility] [address] [place] [address] Dr. Karen Pierce ERUAHD A micrscopic examina tion will be performed if indicated. Normal [facility] Comment on above: Performed By: #### U RTPCR #### [facility] [address] [place] [address] Dr. Karen Pierce Glucose Ql (U) Negative Normal NEGATIVE [facility] Comment on above: Performed By: #### U RTPCR #### [facility] [address] [place] [address] Dr. Karen Pierce Hemoglobin Ql (U) MODERATE Abnormal NEGATIVE [facility] Comment on above: Performed By: #### U RTPCR #### [facility] [address] [place] [address] Dr. Karen Pierce Ketones Ql (U) Negative Normal NEGATIVE [facility] Comment on above: Performed By: #### U RTPCR #### [facility] [address] [place] [address] Dr. Karen Pierce LEUKOCYTES LARGE Abnormal NEGATIVE [facility] Comment on above: Performed By: #### U RTPCR #### [facility] [address] [place] [address] Dr. Karen Pierce Nitrite Ql (U) Negative Normal NEGATIVE [facility] Comment on above: Performed By: #### U RTPCR #### [facility] [address] [place] [address] Dr. Karen Pierce pH (U) 5.5 [pH] Normal 5-9 [facility] Comment on above: Performed By: #### U RTPCR #### [facility] [address] [place] [address] Dr. Karen Pierce SPEC GRAVITY <=1.005 Abnormal 1.005-<=1. 025 [facility] Comment on above: Performed By: #### U RTPCR #### [facility] [address] [place] [address] Dr. Karen Pierce UA PROTEIN Negative Normal NEGATIVE/ TRACE [facility] Comment on above: Performed By: #### U RTPCR #### [facility] [address] [place] [address] Dr. Karen Pierce UR MICRO IND INDICATED Normal [facility] Comment on above: Performed By: #### U RTPCR #### [facility] [address] [place] [address] Dr. Karen Pierce Urobilinogen Qn (U) 0.2 {Tonio'U}/dL Normal 0.2 - 1. 0 [facility] Comment on above: Performed By: #### U RTPCR #### [facility] [address] [place] [address] Dr. Karen Pierce Globulin Calc (S) [Mass/Vol] Ordered By: Taz Barnes on 05-16-2022 Globulin (S) [Mass/Vol] 3.5 g/dL F [facility] - CoagulationOrde red By: Taz Barnes on 05-16-2022 PT Coag (PPP) [Time] 14.2 s 9.0-12.[address] [facility] PROF 14(COMP METB)on 022 Albumin [Mass/Vol] 3.1 g/dL Critically low 3.4-5.0 [facility] Comment on above: Performed By: #### U RTPCR #### [facility] [address] [place] [address] Dr. Karen Pierce Albumin/Globulin [Mass ratio] 0.7 {ratio} Normal [facility] Comment on above: Performed By: #### U RTPCR #### [facility] [address] [place] [address] Dr. Karen Pierce ALP [Catalytic activity/Vol] 96 U/L Normal 46-116 [facility] Comment on above: Performed By: #### U RTPCR #### [facility] [address] [place] [address] Dr. Karen Pierce ALT [Catalytic activity/Vol] 46 U/L Normal 16-63 [facility] Comment on above: Performed By: #### U RTPCR #### [facility] [address] [place] [address] Dr. Karen Pierce Anion gap [Moles/Vol] 19.7 mmol/L Normal Th [facility] Comment on above: Performed By: #### U RTPCR #### [facility] [address] [address] [address] Karen Pierce AST [Catalytic activity/Vol] 21 U/L Normal 15-37 [facility] Comment on above: Performed By: #### U RTPCR #### [facility] [address] [place] [address] Dr. Karen Pierce Bilirubin [Mass/Vol] 0.3 mg/dL Normal 0.2-1.0 [facility] Comment on above: Performed By: #### U RTPCR #### [facility] [address] [address] [address] Karen Pierce Calcium [Mass/Vol] 8.9 mg/dL Normal 8.5-10.1 [facility] Comment on above: Performed By: #### U RTPCR #### [facility] [address] [address] [address] Karen Pierce Chloride [Moles/Vol] 101 mmol/L Normal 98-107 [facility] Comment on above: Performed By: #### U RTPCR #### [facility] [address] [place] [address] Dr. Karen Pierce CO2 [Moles/Vol] 18.3 mmol/L Critically low 21.0-32.0 [facility] Comment on above: Performed By: #### U RTPCR #### [facility] [address] [place] [address] Dr. Karen Pierce Creatinine [Mass/Vol] 8.99 mg/dL Critically high 0.70-1.30 [facility] Comment on above: Performed By: #### U RTPCR #### [facility] [address] [place] [address] Dr. Karen Pierce EGFR-AF [place] 7 mL/min/1.73m2 Critically low >=60 [facility] Comment on above: Performed By: #### U RTPCR #### [facility] [address] [place] [address] Dr. Karen Pierce EGFR-NON AF [place] 6 mL/min/1.73m2 Critically low >=60 [facility] Comment on above: Performed By: #### U RTPCR #### [facility] [address] [place] [address] Dr. Karen Pierce Globulin (S) [Mass/Vol] 4.7 g/dL Normal [facility] Comment on above: Performed By: #### U RTPCR #### [facility] [address] [place] [address] Dr. Karen Pierce Glucose [Mass/Vol] 110 mg/dL Critically high 74-106 T [facility] Comment on above: Performed By: #### U RTPCR #### [facility] [address] [address] [address] Karen Pierce Potassium [Moles/Vol] 5.0 mmol/L Normal 3.5-5.1 [facility] Comment on above: Performed By: #### U RTPCR #### [facility] [address] [address] [address] Karen Pierce Protein [Mass/Vol] 7.8 g/dL Normal 6.4-8.2 [facility] Comment on above: Performed By: #### U RTPCR #### [facility] [address] [place] [address] Dr. Karen Pierce Sodium [Moles/Vol] 134 mmol/L Critically low 136-145 Th [facility] Comment on above: Performed By: #### U RTPCR #### [facility] [address] [place] [address] Dr. Karen Pierce Urea nitrogen [Mass/Vol] 129.0 mg/dL Critically high 7.0-18.0 [facility] Comment on above: Performed By: #### U RTPCR #### [facility] [address] [place] [address] Dr. Karen Pierce Urea nitrogen/Creatinine [Mass ratio] 14.3 mg/mg Normal [facility] Comment on above: Performed By: #### U RTPCR #### [facility] [address] [place] [address] Dr. Karen Pierce Platelet poor plasma interna tional normalized ratio (INR) by coagulation assay (relatOrdered By: Taz Barnes on 05-16-2022 INR Coag (PPP) [Relative time] 1.3 {INR} [facility] Comment on above: INR Therapeutic Rang e [...] on 05-16-2022 Protein [Mass/Vol] 6.4 g/dL 6.1-7.9 [facility] Serum or plasma alanine bal otransferase measurement without P-5'-P (enzymatic activiOrdered By: Taz Branes on 05-16-2022 ALT No additional P-5'-P [Catalytic activity/Vol] 38 U/L 10-60 [facility] Serum or plasma albumin/glob ulin mass ratioOrdered By: Taz Barnes on 05-16-2022 Albumin/Globulin [Mass ratio] 0.8 {ratio} [facility] Serum or plasma alkaline deonte sphatase measurement (enzymatic activity/volume)Ordered By: Taz Barnes on 05-16-2022 ALP [Catalytic activity/Vol] 78 U/L 32-92 [facility] Serum or plasma aspartate am inotransferase measurement (enzymatic activity/volume)Ordered By: Taz Barnes on 05-16-2022 AST [Catalytic activity/Vol] 19 U/L 10-42 [facility] Serum or plasma total biliru bin measurement (mass/volume)Ordered By: Taz Barnes on 05-16-2022 Bilirubin [Mass/Vol] 0.4 mg/dL 0.3-1.[address] [facility] URINE MICROSCOPIC ONLYon BACTERIA SMALL Abnormal NONE SEEN [facility] Comment on above: Performed By: #### U RTPCR #### [facility] [address] [place] [address] Dr. Karen Pierce Bacteria identified Cx Nom (U) INDICATED Normal [facility] Comment on above: Performed By: #### U RTPCR #### [facility] [address] [address] [address] Karen Pierce CAST NONE SEEN Normal NONE SEEN [facility] Comment on above: Performed By: #### U RTPCR #### [facility] [address] [place] [address] Dr. Karen Pierce Crystals LM Nom (Urine sed) NONE SEEN Normal NONE SEEN [facility] Comment on above: Performed By: #### U RTPCR #### [facility] [address] [address] [address] Karen Pierce Epithelial cells LM Ql (Urine sed) NONE SEEN Normal NONE SEEN /RARE [facility] Comment on above: Performed By: #### U RTPCR #### [facility] [address] [address] [address] Karen Pierce MUCOUS NONE SEEN Normal NONE SEEN [facility] Comment on above: Performed By: #### U RTPCR #### [facility] [address] [address] [address] Karen Pierce RBC 20-50 Abnormal 0-2 [facility] Comment on above: Performed By: #### U RTPCR #### [facility] [address] [address] [address] Karen Pierce WBC (U) [#/Vol] /uL Abnormal NONE SEEN [facility] Comment on above: Performed By: #### U RTPCR #### [facility] [address] [address] [address] Karen Pierce Urine sodium measurement (mo les/volume)Ordered By: Taz Barnes on 05-16-2022 Sodium (U) [Moles/Vol] 42.0 mmol/L [facility] Comment on above: No reference range [...] LORENZO SCHERER Date: 2022-05-16 09:25 Normal [facility] CBC AUTO DIFFon 05-15-2022 BASO # 0.0 103/ul Normal 0.0-0.1 [facility] Comment on above: Performed By: #### U A #### [facility] [address] [address] [address] Karen Pierce Basophils/100 WBC (Bld) 0.3 % Normal 0.2-2.0 [facility] Comment on above: Performed By: #### U A #### [facility] [address] [place] [address] Dr. Karen Pierce EO # 0.1 103/ul Normal 0.0-0.7 [facility] Comment on above: Performed By: #### U A #### [facility] [address] [place] [address] Dr. Karen Pierce Eosinophils/100 WBC (Bld) 0.7 % Critically low 0.9-7.0 [facility] Comment on above: Performed By: #### U A #### [facility] [address] [place] [address] Dr. Karen Pierce Erythrocyte distribution width (RBC) [Ratio] 14.9 % Normal 11.0-15.0 [facility] Comment on above: Performed By: #### U A #### [facility] [address] [place] [address] Dr. Karen Pierce Hematocrit (Bld) [Volume fraction] 39.8 % Critically low 42.0-54.0 [facility] Comment on above: Performed By: #### U A #### [facility] [address] [place] [address] Dr. Karen Pierce Hemoglobin (Bld) [Mass/Vol] 12.7 g/dL Critically low 14.0-18.0 [facility] Comment on above: Performed By: #### U A #### [facility] [address] [place] [address] Dr. Karen Pierce IG # 0.06 10e3/ul Critically high 0.00-0.03 [facility] Comment on above: Performed By: #### U A #### [facility] [address] [place] [address] Dr. Karen Pierce IG % 0.5 % Normal 0.0-0.5 [facility] Comment on above: Performed By: #### U A #### [facility] [address] [place] [address] Dr. Karen Pierce LYMPH # 0.9 103/ul Critically low 1.2-3.8 [facility] Comment on above: Performed By: #### U A #### [facility] [address] [place] [address] Dr. Karen Pierce Lymphocytes/100 WBC (Bld) 7.1 % Critically low 20.5-60.0 [facility] Comment on above: Performed By: #### U A #### [facility] [address] [place] [address] Dr. Karen Pierce MANUAL DIFF REQ NO Normal [facility] Comment on above: Performed By: #### U A #### [facility] [address] [place] [address] Dr. Karen Pierce MCH (RBC) [Entitic mass] 27.7 pg Normal 25.9-34.0 [facility] Comment on above: Performed By: #### U A #### [facility] [address] [place] [address] Dr. Karen Pierce MCHC (RBC) [Mass/Vol] 31.9 g/dL Normal 29.9-35.2 [facility] Comment on above: Performed By: #### U A #### [facility] [address] [place] [address] Dr. Karen Pierce MCV (RBC) [Entitic vol] 86.7 fL Normal 80.0-94.0 [facility] Comment on above: Performed By: #### U A #### [facility] [address] [place] [address] Dr. Karen Pierce MONO # 1.0 103/ul Critically high 0.3-0.8 [facility] Comment on above: Performed By: #### U A #### [facility] [address] [place] [address] Dr. Karen Pierce Monocytes/100 WBC (Bld) 8.5 % Normal 1.7-12.0 [facility] Comment on above: Performed By: #### U A #### [facility] [address] [address] [address] Karen Pierce NEUT # 9.9 103/ul Critically high 1.4-6.5 [facility] Comment on above: Performed By: #### U A #### [facility] [address] [address] [address] Karen Pierce Neutrophils/100 WBC (Bld) 82.9 % Critically high 43.0-75.0 [facility] Comment on above: Performed By: #### U A #### [facility] [address] [address] [address] Karen Pierce Platelet mean volume (Bld) [Entitic vol] 9.7 fL Normal 9.5-13.5 [facility] Comment on above: Performed By: #### U A #### [facility] [address] [address] [address] Karen Pierce PLT 206 103/ul Normal 150-450 [facility] Comment on above: Performed By: #### U A #### [facility] [address] [address] [address] Karen Pierce RBC 4.59 106/ul Critically low 4.70-6.10 [facility] Comment on above: Performed By: #### U A #### [facility] [address] [address] [address] Karen Pierce WBC 11.9 103/ul Critically high 4.0-11.0 [facility] Comment on above: Performed By: #### U A #### [facility] [address] [address] [address] Karen Pierce LIPASEon 05-15-2022 Lipase [Catalytic activity/Vol] 340.0 U/L Normal 73.0-393.0 [facility] Comment on above: Performed By: #### U A #### [facility] [address] [address] [address] Karen Pierce PROF 14(COMP METB)on 022 Albumin [Mass/Vol] 3.1 g/dL Critically low 3.4-5.0 [facility] Comment on above: Performed By: #### U A #### [facility] [address] [place] [address] Dr. Karen Pierce Albumin/Globulin [Mass ratio] 0.7 {ratio} Normal [facility] Comment on above: Performed By: #### U A #### [facility] [address] [place] [address] Dr. Karen Pierce ALP [Catalytic activity/Vol] 105 U/L Normal 46-116 [facility] Comment on above: Performed By: #### U A #### [facility] [address] [place] [address] Dr. Karen Pierce ALT [Catalytic activity/Vol] 49 U/L Normal 16-63 [facility] Comment on above: Performed By: #### U A #### [facility] [address] [place] [address] Dr. Karen Pierce Anion gap [Moles/Vol] 18.4 mmol/L Normal [facility] Comment on above: Performed By: #### U A #### [facility] [address] [place] [address] Dr. Karen Pierce AST [Catalytic activity/Vol] 20 U/L Normal 15-37 [facility] Comment on above: Performed By: #### U A #### [facility] [address] [place] [address] Dr. Karen Pierce Bilirubin [Mass/Vol] 0.3 mg/dL Normal 0.2-1.0 [facility] Comment on above: Performed By: #### U A #### [facility] [address] [place] [address] Dr. Karen Pierce Calcium [Mass/Vol] 9.1 mg/dL Normal 8.5-10.1 [facility] Comment on above: Performed By: #### U A #### [facility] [address] [place] [address] Dr. Karen Pierce Chloride [Moles/Vol] 103 mmol/L Normal 98-107 [facility] Comment on above: Performed By: #### U A #### [facility] [address] [address] [address] Karen Pierce CO2 [Moles/Vol] 20.1 mmol/L Critically low 21.0-32.0 [facility] Comment on above: Performed By: #### U A #### [facility] [address] [address] [address] Karen Pierce Creatinine [Mass/Vol] 9.58 mg/dL Critically high 0.70-1.30 [facility] Comment on above: Performed By: #### U A #### [facility] [address] [address] [address] Karen Pierce EGFR-AF [place] 6 mL/min/1.73m2 Critically low >=60 [facility] Comment on above: Performed By: #### U A #### [facility] [address] [place] [address] Dr. Karen Pierce EGFR-NON AF [place] 5 mL/min/1.73m2 Critically low >=60 [facility] Comment on above: Performed By: #### U A #### [facility] [address] [address] [address] Karen Pierce Globulin (S) [Mass/Vol] 4.6 g/dL Normal [facility] Comment on above: Performed By: #### U A #### [facility] [address] [place] [address] Dr. Karen Pierce Glucose [Mass/Vol] 114 mg/dL Critically high 74-106 [facility] Comment on above: Performed By: #### U A #### [facility] [address] [address] [address] Karen Pierce Potassium [Moles/Vol] 5.5 mmol/L Critically high 3.5-5.1 [facility] Comment on above: Performed By: #### U A #### [facility] [address] [place] [address] Dr. Karen Pierce Protein [Mass/Vol] 7.7 g/dL Normal 6.4-8.2 [facility] Comment on above: Performed By: #### U A #### [facility] [address] [address] [address] Karen Pierce Sodium [Moles/Vol] 136 mmol/L Normal 136-145 [facility] Comment on above: Performed By: #### U A #### [facility] [address] [place] [address] Dr. Karen Pierce Urea nitrogen [Mass/Vol] 134.0 mg/dL Critically high 7.0-18.0 [facility] Comment on above: Performed By: #### U A #### [facility] [address] [place] [address] Dr. Karen Pierce Urea nitrogen/Creatinine [Mass ratio] 14.0 mg/mg Normal [facility] Comment on above: Performed By: #### U A #### [facility] [address] [place] [address] Dr. Karen Pierce PROF CHEM 8 (BAS METB)on Anion gap [Moles/Vol] 12.6 mmol/L Normal [facility] Comment on above: Performed By: #### B MP #### [facility] [address] [place] [address] Dr. Karen Pierce Calcium [Mass/Vol] 8.7 mg/dL Normal 8.5-10.1 [facility] Comment on above: Performed By: #### B MP #### [facility] [address] [place] [address] Dr. Karen Pierce Chloride [Moles/Vol] 103 mmol/L Normal 98-107 [facility] Comment on above: Performed By: #### B MP #### [facility] [address] [place] [address] Dr. Karen Pierce CO2 [Moles/Vol] 27.3 mmol/L Normal 21.0-32.0 [facility] Comment on above: Performed By: #### B MP #### [facility] [address] [place] [address] Dr. Karen Pierce Creatinine [Mass/Vol] 1.26 mg/dL Normal 0.70-1.30 [facility] Comment on above: Performed By: #### B MP #### [facility] [address] [address] [address] Karen Pierce EGFR-AF [place] >60 Normal >=60 [facility] Comment on above: Performed By: #### B MP #### [facility] [address] [address] [address] Karen Pierce EGFR-NON AF [place] 55 mL/min/1.73m2 Critically low >=60 [facility] Comment on above: Performed By: #### B MP #### [facility] [address] [address] [address] Karen Pierce Glucose [Mass/Vol] 111 mg/dL Critically high 74-106 [facility] Comment on above: Performed By: #### B MP #### [facility] [address] [address] [address] Karen Pierce Potassium [Moles/Vol] 3.9 mmol/L Normal 3.5-5.1 [facility] Comment on above: Performed By: #### B MP #### [facility] [address] [address] [address] Karen Pierce Sodium [Moles/Vol] 139 mmol/L Normal 136-145 [facility] Comment on above: Performed By: #### B MP #### [facility] [address] [address] [address] Karen Pierce Urea nitrogen [Mass/Vol] 21.0 mg/dL Critically high 7.0-18.0 [facility] Comment on above: Performed By: #### B MP #### [facility] [address] [address] [address] Karen Pierce Urea nitrogen/Creatinine [Mass ratio] 16.7 mg/mg Normal [facility] Comment on above: Performed By: #### B MP #### [facility] [address] [address] [address] Karen Pierce Comprehensive Metabolic Pane howard 05-11-2021 Albumin [Mass/Vol] 4.5 g/dL Normal 3.6-5.1 [facility] [place] [employer] Comment on above: Performed By: #### C MP, LIPD #### [facility] [address] [facility] [place] [id number] Albumin/Globulin [Mass ratio] 2.0 {ratio} Normal 1.0-2.5 [facility] Comment on above: Performed By: #### C MP, LIPD #### [facility] [address] [place], [place] [id number] ALP [Catalytic activity/Vol] 97 U/L Normal 40-129 [facility] Comment on above: Performed By: #### C MP LIPD #### [facility] [address] [place], [place] [id number] ALT [Catalytic activity/Vol] 18 U/L Normal 9-46 [facility] Comment on above: Result Comment: 04/25 Female reference range changed. Performed By: #### C ROBYN LIPD #### [facility] [address] [facility] [place] [id number] Anion gap [Moles/Vol] 17 mmol/L Normal 12-20 [facility] Comment on above: Result Comment: Effe ctive 05/31/2019 reference range changed. Performed By: #### C MP LIPD #### [facility] [address] [place], [place] [id number] AST [Catalytic activity/Vol] 15 U/L Normal 10-40 [facility] Comment on above: Performed By: #### C ROBYN LIPD #### [facility] [address] [place], [place] [id number] Bilirubin [Mass/Vol] 0.55 mg/dL Normal 0.30-1.20 [facility] Comment on above: Performed By: #### C MP LIPD #### [facility] [address] [facility] [place] [id number] BUN/CREA 17 Ratio Normal 6-22 [facility] Comment on above: Performed By: #### C MP LIPD #### [facility] [address] [place], [place] [id number] Calcium [Mass/Vol] 9.8 mg/dL Normal 8.6-10.2 [facility] Comment on above: Performed By: #### C MP, LIPD #### [facility] [address] [place], [place] [id number] Chloride [Moles/Vol] 106 mmol/L Normal 98-107 [facility] Comment on above: Performed By: #### C KILO CARLSON #### [facility] [address] [place], [place] [id number] CO2 [Moles/Vol] 23 mmol/L Normal 20-31 [facility] Comment on above: Performed By: #### C ROBYN LIPElvie #### [facility] [address] [place], [place] [id number] Creatinine [Mass/Vol] 1.2 mg/dL Normal 0.7-1.4 [facility] Comment on above: Performed By: #### C KILO CARLSON #### [facility] [address] [place], [place] [id number] eGFRAA 73 mL/min/1.73m2 Normal >60 [facility] Comment on above: Performed By: #### C ROBYN LIPElvie #### [facility] [address] [place], [place] [id number] eGFRNAA 60 mL/min/1.73m2 Low >60 [facility] Comment on above: Performed By: #### C KILO CARLSON #### [facility] [address] [place], [place] [id number] Globulin (S) [Mass/Vol] 2.3 g/dL Normal 1.9-3.7 [facility] Comment on above: Performed By: #### C ROBYN LIPElvie #### [facility] [address] [place], [place] [id number] Glucose [Mass/Vol] 105 mg/dL High 65-99 [facility] Comment on above: Result Comment: For FASTING Glucose --- ADA reference ranges: Normal 65-99 mg/dl Prediabetes 100-125 Diabetes >/= 126 Performed By: #### C ROBYN LIPD #### [facility] [address] [place], [place] [id number] Potassium [Moles/Vol] 4.1 mmol/L Normal 3.5-5.5 [facility] Comment on above: Performed By: #### C ROBYN LIPD #### [facility] [address] [place], [place] [id number] Protein [Mass/Vol] 6.8 g/dL Normal 6.1-8.1 [facility] Comment on above: Performed By: #### C MP, LIPD #### [facility] [address] [place], [place] [id number] Sodium [Moles/Vol] 142 mmol/L Normal 135-146 [facility] Comment on above: Performed By: #### C MP, LIPD #### [facility] [address] [place], [place] [id number] Urea nitrogen [Mass/Vol] 20 mg/dL Normal 7-25 [facility] Comment on above: Performed By: #### C MP, LIPD #### [facility] [address] [place], [place] [id number] Lipid Panelon 05-11-2021 Cholesterol [Mass/Vol] 109 mg/dL Low 125-200 No [facility] Comment on above: Result Comment: Low risk < 200mg/dL Borderline risk 201-239 mg/dl High risk > or equal to 240 Performed By: #### C MP, LIPD #### [facility] [address] [place], [place] [id number] Cholesterol in HDL [Mass/Vol] 30 mg/dL Low >40 [facility] Comment on above: Result Comment: High Cardiovascular Risk HDL <40 mg/dL Low Cardiovascular Risk HDL > or equal to 60 mg/dl Performed By: #### C MP, LIPD #### [facility] [address] [place], [place] [id number] Cholesterol in LDL [Mass/Vol] 54 mg/dL Normal [facility] Comment on above: Result Comment: LDL ATP III CLASSIFICATION LDL less than 100 mg/dl Optimal LDL 100-129 mg/dl Near or above optimal LDL 130-159 Borderline high LDL 160-189 High LDL greater than 189 mg/dl Very High Performed By: #### C MP, LIPD #### [facility] [address] [place], [place] [id number] Cholesterol in VLDL [Mass/Vol] 25 mg/dL Normal [facility] Comment on above: Performed By: #### C ROBYN, LIPD #### [facility] [address] [place], [place] [id number] Cholesterol.total/Sonya sterol in HDL [Mass ratio] 4 {ratio} Normal [facility] Comment on above: Performed By: #### C ROBYN, LIPD #### [facility] [address] [place], [place] [id number] Triglyceride [Mass/Vol] 126 mg/dL Normal 30-150 [facility] Comment on above: Result Comment: TRIG ATPIII CLASSIFICATIONS TRIG less than 150 mg/dl Normal TRIG 150-199 mg/dl Borderline High TRIG 200-500 mg/dl High TRIG greather than 500 mg/dl Very High Performed By: #### C ROBYN, LIPD #### [facility] [address] [place], [place] [id number] Vital Signs Date Time Vital Sign Value Performing Clinician Facility 06-30-2023 14:17-0500 Blood Pressure Location Katia SAMUELS [facility] 06-30-2023 14:17-0500 Diastolic blood pressure 77 mm[Hg] Kaita SAMUELS [facility] 06-30-2023 14:17-0500 Heart rate 70 /min Katia SAMUELS [facility] 06-30-2023 14:17-0500 Respiratory rate 16 /min Katia SAMUELS [facility] 06-30-2023 14:17-0500 Systolic blood pressure 109 mm[Hg] Katia SAMUELS [facility] 04-15-2023 14:00-0500 Body height 187.96 cm Celia Ramos Other [facility] Other 04-15-2023 14:00-0500 Body mass index (BMI) [Ratio] 28.73 kg/m2 Aziz Bakhous Other [facility] Other 04-15-2023 14:00-0500 Body temperature 96.8 [degF] Azcelestino Bakhous Other [facility] Other 04-15-2023 14:00-0500 Body weight 101.52 kg Azcelestino Danielss Other [facility] Other 04-15-2023 14:00-0500 Diastolic blood pressure 100 mm[Hg] Azcelestino Starkshous Other [facility] Other 04-15-2023 14:00-0500 Respiratory rate 18 /min Celia Danielss Other [facility] Other 04-15-2023 14:00-0500 SaO2% (BldA) [Mass fraction] 96 % Celia Danielss Other [facility] Other 04-15-2023 14:00-0500 Systolic blood pressure 161 mm[Hg] Celia Danielss Other [facility] Other 03-11-2023 13:38-0400 Blood Pressure Location Ktaia SAMUELS [facility] 03-11-2023 13:38-0400 Diastolic blood pressure 100 mm[Hg] Katia SAMUELS [facility] 03-11-2023 13:38-0400 Heart rate 72 /min Katia SAMUELS [facility] 03-11-2023 13:38-0400 Systolic blood pressure 150 mm[Hg] Katia SAMUELS [facility] 01-22-2023 09:57-0400 Body height 187.96 cm Stanley Emerson Work Phone: [facility] DO Work Phone: 01-22-2023 09:57-0400 Body mass index (BMI) [Ratio] 27.35 kg/m2 Stanley Emerson Work Phone: [facility] DO Work Phone: 01-22-2023 09:57-0400 Body surface area Derived from formula 2.23 m2 Stanley Emerson Work Phone: [facility] DO Work Phone: 01-22-2023 09:57-0400 Body weight 96.62 kg Stanley Emerson Work Phone: [facility] DO Work Phone: 01-22-2023 09:57-0400 Diastolic blood pressure 88 mm[Hg] Stanley Emerson Work Phone: [facility] DO Work Phone: 01-22-2023 09:57-0400 Heart rate 72 /min Stanley Emerson Work Phone: [facility] DO Work Phone: 01-22-2023 09:57-0400 Systolic blood pressure 126 mm[Hg] Stanley Emerson Work Phone: [facility] DO Work Phone: 08-21-2022 14:30-0400 Body height 187.96 cm Carlene Ranjith Other [facility] Other 08-21-2022 14:30-0400 Body mass index (BMI) [Ratio] 26.32 kg/m2 Carlene Kasper Other [facility] Other 08-21-2022 14:30-0400 Body temperature 97.8 [degF] Carlene Kasper Other [facility] Other 08-21-2022 14:30-0400 Body weight 92.99 kg Carlene Kasper Other [facility] Other 08-21-2022 14:30-0400 Diastolic blood pressure 82 mm[Hg] Carlene Kasper Other [facility] Other 08-21-2022 14:30-0400 SaO2% (BldA) [Mass fraction] 96 % Carlene Kasper Other [facility] Other 08-21-2022 14:30-0400 Systolic blood pressure 124 mm[Hg] Carlene Kasper Other [facility] Other 07-31-2022 07:25-0500 Blood Pressure Location Katia 5gig [facility] 07-31-2022 07:25-0500 Diastolic blood pressure 89 mm[Hg] Katia SAMUELS [facility] 07-31-2022 07:25-0500 Heart rate 70 /min Katia SAMUELS [facility] 07-31-2022 07:25-0500 Respiratory rate 16 /min Katia SAMUELS [facility] 07-31-2022 07:25-0500 Systolic blood pressure 130 mm[Hg] Katia SAMUELS [facility] 07-25-2022 09:45-0500 Body height 187.96 cm Margarito Valentine Other [facility] Other 07-25-2022 09:45-0500 Body mass index (BMI) [Ratio] 26.32 kg/m2 Margarito Valentine Other [facility] Other 07-25-2022 09:45-0500 Body temperature 96.2 [degF] Margarito Valentine Other [facility] Other 07-25-2022 09:45-0500 Body weight 92.99 kg Margarito Valentine Other [facility] Other 07-25-2022 09:45-0500 Diastolic blood pressure 60 mm[Hg] Margarito Valentine Other [facility] Other 07-25-2022 09:45-0500 SaO2% (BldA) [Mass fraction] 97 % Margarito Valentine Other [facility] Other 07-25-2022 09:45-0500 Systolic blood pressure 110 mm[Hg] Margarito Valentine Other [facility] Other 07-03-2022 07:34-0500 Body temperature 98.9 [degF] MD Stanley Emerson Work Phone: [facility] 07-03-2022 07:34-0500 Diastolic blood pressure 91 mm[Hg] MD Stanley Emerson Work Phone: [facility] 07-03-2022 07:34-0500 Heart rate 87 /min MD Stanley Emerson Work Phone: [facility] 07-03-2022 07:34-0500 Respiratory rate 18 /min MD Stanley Emerson Work Phone: [facility] 07-03-2022 07:34-0500 SaO2% (BldA) [Mass fraction] 94 % MD Stanley Emerson Work Phone: [facility] 07-03-2022 07:34-0500 Systolic blood pressure 159 mm[Hg] MD Stanley Emerson Work Phone: [facility] 07-03-2022 05:46-0500 Body weight 94 kg MD Stanley Emerson Work Phone: [facility] 07-02-2022 16:27-0500 Inhaled oxygen flow rate 6 L/min MD Stanley Emerson Work Phone: [facility] 07-02-2022 10:06-0500 Body height 185.42 cm MD Stanley Emerson Work Phone: [facility] 07-02-2022 10:06-0500 Body mass index (BMI) [Ratio] 27.3 kg/m2 MD Stanley Emerson Work Phone: [facility] 06-19-2022 10:00-0500 Body height 187.96 cm Margarito Valentine Other [facility] Other 06-19-2022 10:00-0500 Body mass index (BMI) [Ratio] 26.32 kg/m2 Margarito Valentine Other [facility] Other 06-19-2022 10:00-0500 Body temperature 97.8 [degF] Margarito Valentine Other [facility] Other 06-19-2022 10:00-0500 Body weight 92.99 kg Margarito Valentine Other [facility] Other 06-19-2022 10:00-0500 Diastolic blood pressure 68 mm[Hg] Margarito Valentine Other [facility] Other 06-19-2022 10:00-0500 SaO2% (BldA) [Mass fraction] 95 % Margarito Valentine Other [facility] Other 06-19-2022 10:00-0500 Systolic blood pressure 108 mm[Hg] Margarito Valentine Other [facility] Other 06-12-2022 13:07-0500 Body height 187.96 cm MD Stanley Emerson Work Phone: [facility] 06-12-2022 13:07-0500 Body weight 93.44 kg MD Stanley Emerson Work Phone: [facility] 06-06-2022 12:00-0500 Body height 187.96 cm Margarito Valentine Other [facility] Other 06-06-2022 12:00-0500 Body mass index (BMI) [Ratio] 26.32 kg/m2 Margarito Valentine Other [facility] Other 06-06-2022 12:00-0500 Body temperature 97.2 [degF] Margarito Valentine Other [facility] Other 06-06-2022 12:00-0500 Body weight 92.99 kg Margarito Valentine Other [facility] Other 06-06-2022 12:00-0500 Diastolic blood pressure 70 mm[Hg] Margarito Valentine Other [facility] Other 06-06-2022 12:00-0500 SaO2% (BldA) [Mass fraction] 98 % Margarito Valentine Other [facility] Other 06-06-2022 12:00-0500 Systolic blood pressure 108 mm[Hg] Margarito Valentine Other [facility] Other 06-04-2022 12:00-0500 Body height 187.96 cm Celia Danielss Other [facility] Other 06-04-2022 12:00-0500 Body mass index (BMI) [Ratio] 26.42 kg/m2 Azcelestino Danielss Other [facility] Other 06-04-2022 12:00-0500 Body temperature 96.6 [degF] Azcelestino Danielss Other [facility] Other 06-04-2022 12:00-0500 Body weight 93.35 kg Celia Danielss Other [facility] Other 06-04-2022 12:00-0500 Diastolic blood pressure 70 mm[Hg] Azcelestino Danielss Other [facility] Other 06-04-2022 12:00-0500 Respiratory rate 20 /min Azcelestino Starkshous Other [facility] Other 06-04-2022 12:00-0500 SaO2% (BldA) [Mass fraction] 98 % Azcelestino Bakhous Other [facility] Other 06-04-2022 12:00-0500 Systolic blood pressure 100 mm[Hg] Azcelestino [employer] Other [facility] Other 06-03-2022 15:38-0500 Body height 187.96 cm Stanley Emerson Work Phone: [facility] DO Work Phone: 06-03-2022 15:38-0500 Body mass index (BMI) [Ratio] 26.45 kg/m2 Stanley Emerson Work Phone: [facility] DO Work Phone: 06-03-2022 15:38-0500 Body surface area Derived from formula 2.2 m2 Stanley Emerson Work Phone: [facility] DO Work Phone: 06-03-2022 15:38-0500 Body weight 93.44 kg Stanley Emerson Work Phone: [facility] DO Work Phone: 06-03-2022 15:38-0500 Diastolic blood pressure 78 mm[Hg] Stanley Emerson Work Phone: [facility] DO Work Phone: 06-03-2022 15:38-0500 Heart rate 71 /min Stanley Emerson Work Phone: [facility] DO Work Phone: 06-03-2022 15:38-0500 Systolic blood pressure 106 mm[Hg] Stanley Emerson Work Phone: [facility] DO Work Phone: 05-22-2022 11:53-0500 Body temperature 98.8 [degF] MD Stanley Emerson Work Phone: [facility] 05-22-2022 11:53-0500 Diastolic blood pressure 72 mm[Hg] MD Stanley Emerson Work Phone: [facility] 05-22-2022 11:53-0500 Heart rate 78 /min MD Stanley Emerson Work Phone: [facility] 05-22-2022 11:53-0500 Respiratory rate 16 /min MD Stanley Emerson Work Phone: [facility] 05-22-2022 11:53-0500 SaO2% (BldA) [Mass fraction] 97 % MD Stanley Emerson Work Phone: [facility] 05-22-2022 11:53-0500 Systolic blood pressure 108 mm[Hg] MD Stanley Emerson Work Phone: [facility] 05-22-2022 06:02-0500 Body weight 88.8 kg MD Stanley Emerson Work Phone: [facility] 05-21-2022 11:48-0500 63 1 Stanley Emerson Work Phone: [facility] DO Work Phone: Comment on above: [id number] 05-17-2022 12:08-0500 Body height 187.96 cm MD Stanley Emerson Work Phone: [facility] Encounters Encounter Date Encounter Type Care Provider Facility Start: 09-09-2023 ambulatory Katia Kurtz ty:UZMA Alfaro Start: 08-18-2023 End: 08-18-2023 ambulatory Margarito Valentine Facility:[facility] Start: 08-18-2023 End: 08-18-2023 ambulatory MD Stanley Emerson Work Phone: [facility] Work Phone: Start: 08-18-2023 End: 08-18-2023 Patient encounter procedure MD Stanley Emerson Work Phone: [facility]-CT Scan [facility] Work Phone: Start: 08-15-2023 End: 08-16-2023 ambulatory Katia SAMUELS Facility:[facility] Start: 08-15-2023 End: 08-15-2023 Patient encounter procedure Katia SAMUELS [facility] Start: 08-04-2023 End: 08-04-2023 ambulatory EDLUDY J HEMEYER Not Available Start: 07-01-2023 End: 07-02-2023 ambulatory Katia SAMUELS Facility: [facility] Start: 06-30-2023 End: 07-01-2023 ambulatory Katia SAMUELS Facility: [place] Start: 06-30-2023 End: 06-30-2023 Patient encounter procedure Katia SAMUELS [facility] Start: 06-16-2023 End: 06-17-2023 ambulatory Katia SAMUELS Facility: [facility] Start: 06-16-2023 End: 06-16-2023 Patient encounter procedure Katia SAMUELS [facility] Start: 06-10-2023 End: 06-11-2023 ambulatory Katia SAMUELS Facility:[facility] Start: 06-10-2023 End: 06-10-2023 Patient encounter procedure Katia SAMUELS [facility] Start: 05-28-2023 End: 05-28-2023 ambulatory EDWARD J HEMEYER Not Available Start: 05-12-2023 End: 05-12-2023 ambulatory EDWARD J HEMEYER Not Available Start: 05-06-2023 End: 05-06-2023 ambulatory Celia Ramos Other [facility] Other Start: 05-06-2023 Telephone encounter Celia Ramos [facility] Start: 04-16-2023 End: 04-16-2023 ambulatory Celia Ramos Other [facility] [employer] Other Start: 04-16-2023 Telephone encounter Celia Ramos [facility] Start: 04-15-2023 End: 04-15-2023 ambulatory Celia Ramos Other [facility] [employer] Other Start: 04-15-2023 Office outpatient vi sit 25 minutes Celia Ramos [facility] Start: 04-08-2023 End: 04-08-2023 ambulatory Teo Stokes Facility:[facility] Start: 04-08-2023 End: 04-08-2023 ambulatory MD Stanley Emerson Work Phone: [facility] Work Phone: Start: 04-08-2023 End: 04-08-2023 Patient encounter procedure MD Stanley Emerson Work Phone: [facility]-Lab [facility] Start: 03-11-2023 End: 03-12-2023 ambulatory Katia SAMUELS Facility:[facility] Start: 03-11-2023 End: 03-11-2023 Lab Drop off Katia SAMUELS [facility] Start: 03-11-2023 End: 03-11-2023 Patient encounter procedure Katia SAMUELS [facility] Start: 01-22-2023 Office outpatient vi sit 25 minutes Stanley Emerson Work Phone: [place] [address] DO Work Phone: Start: 01-22-[address] Teo Stokes Facility:[id number] Start: 12-25-2022 End: 12-26-2022 ambulatory Katia SAMUELS Facility:[facility] Start: 12-25-2022 End: 12-25-2022 Patient encounter procedure Katia R ARLENE [facility] Start: 12-10-2022 End: 12-11-2022 ambulatory Katia Isabel ARLENE Facility:[facility] Start: 12-10-2022 End: 12-10-2022 Lab Drop off Katia SAMUELS [facility] Start: 12-10-2022 End: 12-11-2022 ambulatory Katia R ARLENE Facility:[facility] Start: 12-10-2022 End: 12-10-2022 Patient encounter procedure Katia Hall ARLENE [facility] Start: 10-04-2022 End: 10-05-2022 ambulatory Katia R ARLENE Facility:[facility] Start: 10-04-2022 End: 10-04-2022 Patient encounter procedure Katia Hall SAMUELS [facility] Start: 09-18-2022 End: 09-19-2022 ambulatory Katia R ARLENE Facility:[facility] Start: 09-18-2022 End: 09-18-2022 Patient encounter procedure Katia Hall ARLENE [facility] Start: 09-15-2022 End: 09-15-[address] STANLEY EMERSON . Facility:[facility] Start: 09-12-2022 End: 09-13-[address] STANLEY EMERSON . Facility:[facility] Start: 09-08-2022 Encounter for preprocedural laboratory examination CELIA RAMOS [facility] Start: 09-04-2022 End: 09-05-[address] STANLEY EMERSON . Facility:[facility] Start: 09-04-2022 Encounter for preprocedural cardiovascular examination DR KATIA SAMUELS . [facility] Start: 09-02-2022 End: 09-03-[address] STANLEY EMERSON . Facility:[facility] Start: 09-02-2022 End: 09-03-2022 Encounter for preprocedural laboratory examination DR STANLEY EMERSON . Facility:[facility] Start: 09-02-2022 End: 09-03-[address] STANLEY EMERSON . Facility:[facility] Start: 09-02-2022 End: 09-03-2022 Encounter for preprocedural cardiovascular examination DR STANLEY EMERSON . Facility:[facility] Start: 08-21-2022 End: 08-21-2022 ambulatory Carlene Kasper Other [facility] Other Start: 08-21-2022 Follow-up encounter Carlene Dickerson [facility] Start: 08-16-2022 End: 08-16-2022 ambulatory MD Stanley Emerson Work Phone: [facility] Work Phone: Start: 08-16-2022 End: 08-16-2022 Patient encounter procedure MD Stanley Emerson Work Phone: [facility] Work Phone: Start: 07-31-2022 End: 07-31-2022 Patient encounter procedure Katia SAMUELS [facility] Start: 07-25-2022 End: 07-25-2022 ambulatory Margarito Valentine Other [facility] Other Start: 07-25-2022 Postop follow up vis it related to original px Margarito Valentine [facility] Surgery Start: 07-24-2022 End: 07-24-2022 ambulatory MD Stanley Emerson Work Phone: [facility] Work Phone: Start: 07-24-2022 End: 07-24-2022 Patient encounter procedure MD Stanley Emerson Work Phone: [facility]-MRI [facility] Work Phone: Start: 07-02-2022 End: 07-03-2022 Evaluation and management of inpatient MD Stanley Emerson Work Phone: [facility] Work Phone: Start: 06-21-2022 End: 06-21-2022 Patient encounter procedure MD Stanley Emerson Work Phone: [facility]-Pre-Surgical Testing Work Phone: Start: 06-19-2022 End: 06-19-2022 ambulatory Margarito Valentine Other [facility] Other Start: 06-19-2022 Office outpatient vi sit 25 minutes Margarito Valentine [facility] Vascular Surgery Start: 06-12-2022 End: 06-12-2022 ambulatory MD Stanley Emerson Work Phone: [facility] Work Phone: Start: 06-12-2022 End: 06-12-2022 Patient encounter procedure MD Stanley Emerson Work Phone: [facility]-CT Scan [facility] Work Phone: Start: 06-11-2022 End: 06-11-2022 Patient encounter procedure HEATHER SCHWAB [facility] Start: 06-06-2022 End: 06-06-2022 ambulatory Margarito Valenitne Other [facility] Other Start: 06-06-2022 Office outpatient vi sit 25 minutes Margarito Valentine [facility] Vascular Surgery Start: 06-04-2022 End: 06-04-2022 ambulatory Celia Ramos Other [facility] Other Start: 06-04-2022 Office outpatient vi sit 25 minutes Celia Ramos [facility] Nephrology Tom Start: 06-03-2022 Office outpatient vi sit 25 minutes Stanley Emerson Work Phone: [facility] 250 DO Work Phone: Start: 06-03-[address] Stanley Emerson Facility:[id number] Start: 05-21-[address] Stanley Emerson Facility:[id number] Start: 05-20-[address] Stanley Emerson Facility:[id number] Start: 05-19-[address] Teo Stokes Facility:[id number] Start: 05-18-[address] Teo Stokes Facility:[id number] Start: 05-17-[address] Stanley Emerson Facility:[id number] Start: 05-17-2022 Bradyarrhythmia MD Stanley billingsley Work Phone: [facility] Start: 05-17-[address] Teo Stokes Facility:[id number] Start: 05-16-2022 End: 05-22-2022 Encounter for preprocedural cardiovascular examination MD Stanley Emerson Work Phone: [facility] Start: 05-16-2022 End: 05-22-2022 Evaluation and management of inpatient MD Stanley Emerson Work Phone: [facility] Work Phone: Start: 05-16-2022 End: 05-16-[address] STANLEY EMERSON . Facility:[facility] Start: 05-15-2022 End: 05-16-[address] STANLEY EMERSON . Facility:[facility] Start: 01-04-2022 End: 01-04-[address] STANLEY EMERSON . Facility:[facility] Patient encounter status Stanley Emerson Work Phone: [facility] 250 DO Work Phone: End: 01-22-2023 Patient encounter status Stanley Emerson Work Phone: [facility] DO Work Phone: Procedures Date Procedure Procedure Detail Performing Clinician Start: 08-18-2023 CT of abdomen and pe lvis without contrast MD Stanley Emerson Work Phone: Start: 03-11-2023 Cystoscope, device (physical object) Katia SAMUELS Start: 09-12-2022 Transurethral resect ion of bladder neoplasm Katia ARLENE Start: 08-16-2022 Computed tomography angiography of abdominal [...] Teo Stokes, Status: Pen, Time: 11:50 AM [facility] 250 DO Work Phone: Start: 04-08-2023 Bacteria identified in Urine by Culture [facility] Start: 12-10-2022 FUV, Provider: Teo Stokes, Status: Pen, Time: 10:10 AM FUV, Provider: Teo Stokes, Status: Pen, Time: 10:10 AM [facility] 250 DO Work Phone: Start: 07-24-2022 MR Abdomen WO and W contrast IV [facility] Start: 07-24-2022 MRI of abdomen with contrast MR abdomen wo/w con [facility] Start: 07-03-2022 [facility] Start: 07-02-2022 Fluoroscopy of Aorta and Bilateral Lower Extremity Arteries using Low Osmolar Contrast Fluoroscopy of Aorta and Bilateral Lower Extremity Arteries using Low Osmolar Contrast [facility] Start: 07-02-2022 Restriction of Abdominal Aorta with Intraluminal Device, Percutaneous Approach Restriction of Abdominal Aorta with Intraluminal Device, Percutaneous Approach [facility] Start: 05-22-2022 [facility] Start: 05-20-2022 Evaluation procedure [facility] Start: 05-19-2022 [facility] Start: 05-17-2022 End: 05-17-2022 [facility] Start: 05-16-2022 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 [facility] Start: 05-16-2022 Referral to vascular surgeon [facility] Start: 05-16-2022 Hospital admission [facility] Patient Education [facility] Work Phone: Patient referral [facility] Work Phone: [facility] Immunizations Immunization Date Immunization Notes Care Provider Fa ciligilma 03-29-2022 Pfizer COVID-19 Vac Bivalent 30 MCG/0.3ML Intramuscular Suspension Stanley Emerson Work Phone: [facility] 03-16-2022 influenza virus vacc ine, unspecified formulation Katia SAMUELS [facility] 03-16-2022 influenza, seasonal, injectable Stanley Emerson Work Phone: [facility] 250 DO Work Phone: 03-06-2022 Fluzone High-Dose Quadrivalent 0.7 ML Intramuscular Suspension Prefilled Syringe Stanley Emerson Work Phone: [facility] 250 DO Work Phone: 03-06-2022 influenza virus vacc ine, unspecified formulation HEATHER SCHWAB [facility] 10-03-2021 Comirnaty 30 MCG/0.3 ML Intramuscular Suspension Stanley Emerson Work Phone: [facility] 250 DO Work Phone: 10-03-2021 COVID-19 mRNA, Comir adriana (Pfizer) MD Stanley Emerson Work Phone: [facility] 10-03-2021 SARS-CoV-2 mRNA (xywzicvmato-jpbo-weopxt e) vaccine HEATHER SCHWAB [facility] 04-23-2021 pneumococcal polysaccharide vaccine, 23 valent Stanley Emerson Work Phone: [facility] 02-22-2021 influenza virus vacc ine, unspecified formulation Katia SAMUELS [facility] 02-22-2021 influenza, injectabl e, quadrivalent, preservative free Stanley Emerson Work Phone: [facility] 250 DO Work Phone: 02-21-2021 Pfizer-BioNTech COVI D-19 Vacc 30 MCG/0.3ML Intramuscular Suspension Stanley Rich Modern Guildjose cruz Work Phone: [facility] Comment on above: Result Comment: 2022: [id number] 07-28-2020 Pfizer-BioNTech COVI D-19 Vacc 30 MCG/0.3ML Intramuscular Suspension [employer]y Rich Sals[employer] Work Phone: [facility] 07-07-2020 Pfizer-BioNTech COVI D-19 Vacc 30 MCG/0.3ML Intramuscular Suspension [employer]udy Rich Sals[employer] Work Phone: [facility] 02-22-2020 influenza virus vacc ine, unspecified formulation HEATHER SCHWAB [facility] 02-22-2020 Seasonal, quadrivale nt, recombinant, injectable influenza vaccine, preservative free KitOrderludy Rich Modern Guildjose cruz Work Phone: [facility] 250 DO Work Phone: Payers Date Payer Category Payer Self-pay 2017 Medicare [id number] 1959 Medicare [id number] 1959 Private Health Insurance [id number] 1943 Unknown [id number] 2.16.840.1.299782.3.579.2.593 1943 Unknown [id number] 2.16.840.1.700910.3.579.2.593 1943 Unknown [id number] 2.16.840.1.102051.3.579.2.593 1943 Unknown [id number] 2..840.1.145061.3.579.2.593 1943 Unknown [id number] 2..840.1.226837.3.579.2.593 1943 Unknown [id number] .840.1.471931.3.579.2.593 1943 Unknown [id number] 2.840.1.969822.3.579.2.593 1943 Unknown [id number] .840.1.174642.3.579.2.593 1943 Unknown [id number] 2.840.1.432151.3.579.2.356 1943 Unknown [id number] .840.1.102357.3.579.2.356 1943 Unknown [id number] .840.1.629317.3.579.2.356 1943 Unknown [id number] 2.840.1.327764.3.579.2.356 1943 Unknown [id number] .840.1.931526.3.579.2.356 1943 Unknown [id number] .840.1.672371.3.579.2.356 1943 Unknown [id number] .840.1.546673.3.579.2.356 1943 Unknown [id number] .840.1.339712.3.579.2.356 1943 Unknown [id number] 2.840.1.689435.3.579.2.125 9 1943 Unknown [id number] 2.840.1.817261.3.579.2.125 9 1943 Unknown [id number] 2.16.840.1.291841.3.579.2.125 9 1943 Unknown [id number] 2.16.840.1.732956.3.579.2.727 1943 Unknown [id number] 2.16.840.1.785512.3.579.2.727 1943 Unknown [id number] 2.16.840.1.810772.3.579.2.727 1943 Unknown [id number] 2.16.840.1.197257.3.579.2.727 1943 Unknown [id number] 2.16.840.1.994805.3.579.2.727 1943 Unknown [id number] 2.16840.1.121207.3.579.2.727 1943 Unknown [id number] 2.16840.1.497540.3.579.2.727 1943 Unknown [id number] 2.16840.1.346011.3.579.2.727 1943 Unknown [id number] 2.16840.1.830882.3.579.2.727 1943 Unknown [id number] 2.16840.1.972316.3.579.2.727 1943 Unknown [id number] 2.16840.1.158405.3.579.2.727 1943 Unknown [id number] 2.16.840.1.363698.3.579.2.727 1943 Unknown [id number] 2.16.840.1.473001.3.579.2.727 1943 Unknown [id number] 2.16.840.1.525178.3.579.2.727 Medicare Medicare Nonpatient [id number] Unknown Unknown [facility] [id number] Unknown [id number] 2.16.840.1.260716.3.579.2.531 Unknown [id number] 2.16.840.1.768635.3.579.2.531 Social History Date Type Detail Facility Daily caffeine consumption Daily caffeine consumption [facility] DO Work Phone: Comment on above: 3-4 cups coffee kellen y; 05/17/23 quit; 1/2 dozen cigarettes ; Start: 06-11-2022 End: 03-11-2023 Tobacco smoking status Heavy tobacco smoker (finding) [facility] [place] Sex Assigned At Male [facility] Start: 05-17-2022 Tobacco smoking stat NHIS Smoker (finding) [facility] Start: 1945 Sex Assigned At Male F [facility] Start: 07-02-2022 End: 07-02-2022 Tobacco smoking status NHIS Ex-smoker (finding) [facility] Tobacco smoking status Never [facility] Medical Equipment Procedure Code Equipment Code Equipment Origin al Text Equipment Identifier Dates Percutaneous endovascular repair of abdominal aortic aneurysm (AAA) Abdominal aorta endovascular stent-graft ()[id number] FDA Start: 07-02-2022 Percutaneous endovascular repair of abdominal aortic aneurysm (AAA) Abdominal aorta endovascular stent-graft ()[id number] FDA Start: 07-02-2022 Percutaneous endovascular repair of abdominal aortic aneurysm (AAA) Abdominal aorta endovascular stent-graft ()[id number] FDA Start: 07-02-2022 Percutaneous endovascular repair of abdominal aortic aneurysm (AAA) Soft-tissue/mesh anchor, non-bioabsorbable ()[id number] FDA Start: 07-02-2022 Goals Date Patient Goal Desired Activity /State Functional Status Date Assessment Result Facility 06-30-2023 Functional Status N/A [facility] 06-10-2023 Functional Status N/A [facility] 03-11-2023 Functional Status N/A [facility] 12-10-2022 Functional Status N/A [facility] 09-18-2022 Functional Status N/A [facility] 07-31-2022 Functional Status N/A [facility] 07-03-2022 Functional status Patient at Baseline [facility] Work Phone: 06-11-2022 Functional Status N/A [facility] 05-16-2022 Functional status Patient Not at Baseline [facility] Work Phone: Mental Status Date Assessment Result Facility 07-03-2022 Cognitive function Cognitive Sta tus Patient at Baseline [facility] Work Phone: 05-16-2022 Cognitive function Cognitive Sta tus Patient at Baseline [facility] Work Phone: Clinical Notes 06-04-2022 to 06-30-2023 [...] Follow these instructions at home: Medicines Take xqgi-xvq-acsovxw and prescription medicines only as told by [...] provider. Document Revised: 01/31/2021 Document Reviewed: 01/31/2021 OM Latam Patient Education 2022 [facility]. 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 6. Keep the drainage bag below [...] Address: [facility] [address] [place] [address]- Business (1) When:06/24/2023 15:15:55 Comments:for zapien removal [facility] 06-10-2023 Note Custom Rezum Post-Procedure Instructions [...] using a circul (more content not included)... [facility] 05-06-2023 Evaluation note Encounter Date Diagnosis Assessment Notes Apr, Primary hypertension (ICD-10 - I10) [facility] Other 11-21-2023 Evaluation note* Encounter Date Diagnosis [...] supplement. I asked the patient to continue manw-zou-afpfvaa iron supplement once or twice daily Mar, Primary hypertension (ICD-10 - I10) BP is elevated. Will start Norvasc 5 mg PO daily. i asked the patient to monitor Bp closely with tapering steroid dose [facility] Other 10-17-2023 Hospital Discharge instructions Patient Education [...] including vitamins, herbs, eye drops, creams, and knif-ogl-eahjpnz medicines. Any problems you or family members [...] provider tells you to take them. Taking inny-ggs-xuoaojh medicines, vitamins, herbs, and supplements. Surgery safety [...] provider. Document Revised: 02/05/2022 Document Reviewed: 02/05/2022 [employer] Patient Education 2022 [facility] [facility]. 03/11/2023 14:15:06 Benign Prostatic Hyperplasia Benign Prostatic [...] urethra. Follow these instructions at home: Take jzwi-lqe-lettjnf and prescription medicines only as told by [...] provider. Document Revised: 11/28/2021 Document Reviewed: 11/28/2021 [employer] Patient Education 2022 [facility]. Follow Up Care 02/07/2023 16:01:50 With:ARLENE CASILLAS, Katia Hall, URL Address: [facility] [address] , [place] [address]- When:Within 3 Month(s) Comments:Sched cysto/FISH/Cytol/BT check [facility] 10-17-2023 Evaluation + Plan note Diagnostic Tests Pending * [facility] Fish and Urine Cyto ([facility]) 03/11/23 [facility]08-15-2023 Note [id number]:127[facility] 12-10-2022 Evaluation + Plan note Diagnostic Tests Pending * UroVysion Fish and Urine Cyto ([facility]) 12/10/22 [facility]07-18-2023 Hospital Discharge instructions Patient Education 12/10/2022 [...] if anything looks unusual. Men with a whpqwe-qavt-qmyoam risk for skin cancer may want to see a fireworks display specialist (sound effects person) for an annual body check. What are the benefits of screening? Cancer screening is done to look for cancer in the very early stages, before it spreads and becomesharder to treat and before you would start to notice symptoms. Finding cancer early improves the chances of successful treatment. It may save your life. Where to find more information [employer]: www.cancer.org Centers for Disease Control and Prevention: www.cdc.gov National Cancer [place]: www.cancer.gov Contact a health care provider if: [...] provider. Document Revised: 10/08/2021 Document Reviewed: 04/07/2020 [employer] Patient Education 2022 [facility]. Follow Up Care 11/15/2022 14:27:10 With:ARLENE CASILLAS, Katia Hall, URL Address: [facility] [address] , [place] [address]- When: Unknown [facility] 04-26-2023 Hospital Discharge instructions Patient Education 09/18/2022 [...] cells. Follow these instructions at home: Take fzoq-nfr-ajubsta and prescription medicines only as told by [...] is important. Where to find more information [employer] (ACS): cancer.org National Cancer [place] (NCI): cancer.gov Contact a health care provider [...] provider. Document Revised: 04/22/2022 Document Reviewed: 04/22/2022 Else[employer] Patient Education 2022 [facility]. Follow Up Care 08/26/2022 14:12:46 With:ARLENE CASILLAS, Katia Hall, URL Address: [facility] [address], [place] [address]- When: Unknown [facility] 04-10-2023 NoteEXAM: XR CHEST 2 V HISTORY: Pre-surgery evaluation COMPARISON: None. TECHNIQUE: PA and lateral views of the chest. FINDINGS: The cardiomediastinal silhouette is normal. No focal consolidation is identified. There is no pneumothorax. No pleural effusion is noted. The osseous structures are intact. IMPRESSION: No acute cardiopulmonary process. Electronically authenticated by: CORKY FORD Date: 2022-09-02 14:17[facility]03-29-2023 Evaluation note* Encounter Date Diagnosis Assessment [...] have his bladder tumor removal as scheduled. [facility] Other 03-08-2023 Evaluation + Plan note Diagnostic Tests Pending * UroVysion Fish and Urine Cyto ([facility]) 07/31/22 [facility] 03-08-2023 Hospital Discharge instructions Patient Education 07/31/2022 [...] including vitamins, herbs, eye drops, creams, and ynxe-dfg-krjqyke medicines. Any problems you or family members [...] provider tells you to take them. Taking otik-qwy-lzybyub medicines, vitamins, herbs, and supplements. Tests You [...] 03/08/2010 Document Revised: 12/11/2018 Document Reviewed: 12/11/2018 [employer] Patient Education 2020 [facility]. Follow Up Care 07/25/2022 10:56:51 With:ARLENE CASILLAS, Katia Hall, URL Address: [facility] [address], [place] [address]- When: Unknown [facility] 03-02-2023 Evaluation note* Encounter Date Diagnosis Assessment [...] some bladder issues. I did call the [employer] The device is compatible up to 3 Maggi for MRI. I explained this to the family and the patient. Jul, Other specified postprocedural states (ICD-10 - Z98.890) Jul, Personal history of other diseases of the circulatory system (ICD-10 - Z86.79) [facility]-25[facility]2023 Evaluation note* Encounter Date Diagnosis Assessment Notes [...] plan to do this percutaneously under MAC. [facility] Other 01-17-2023 Hospital Discharge instructions Patient Education [...] including vitamins, herbs, eye drops, creams, and jgyz-pev-wuadthf medicines. Any problems you or family members [...] provider tells you to take them. ?Taking gzog-vbq-hosfmui medicines, vitamins, herbs, and supplements. Follow instructions [...] Follow these instructions at home: Medicines Take fele-vhk-resqqsa and prescription medicines only as told by [...] 05/09/2001 Document Revised: 05/04/2019 Document Reviewed: 05/04/2019 [employer] Patient Education 2020 [employer] Follow Up Care 05/22/2022 13:37:28 With:[facility] Address: [address] [place] [id number] Business (1) When: Unknown Comments:our dental scheduler will be contacting you for follow-up [facility] 01-12-2023 Evaluation note* Encounter Date Diagnosis [...] to proceed all his questions were addressed. [facility] Other 01-10-2023 Evaluation note* Encounter Date Diagnosis [...] (ICD-10 - E78.5) Patient is on statin Re[facility] Other Evaluation + Plan note No data available for this section [facility] evaluation + Plan note Future Appointments Appointment Date:10/04/2022 10:00:00 AM Scheduled Provider: Location:[facility] Appointment Type:URO Nurse Visit [facility] Evaluation + Plan note Future Appointments Appointment Date:06/16/2023 10:00:00 AM Scheduled Provider: Location:[facility] Appointment Type:URO Nurse Visit Appointment Date:06/30/2023 01:30:00 PM Scheduled Provider:Katia SAMUELS MD Location:[facility] Appointment Type:URO Office Visit Diagnostic Tests Pending * [facility]ro[facility]ysion Fish and Urine Cyto [facility] Appointment Date:06/30/2023 01:30:00 PM Scheduled Provider:Katia SAMUELS MD Location:[facility] Appointment Type:URO Office Visit [facility] evaluation + Plan note Future Appointments Appointment Date:07/01/2023 08:30:00 AM Scheduled Provider: [facility] Type:[facility]O Nurse Visit [facility] evaluation + Plan note Future Appointments Appointment Date:09/09/2023 02:15:00 PM Scheduled Provider:[facility] App[facility] Type:URO Procedure 15 min [facility] Evaluation note* Diagnosis Onset Date Resolution Status AAA [...] acute Vitamin B 12 deficiency acut e [facility] Work Phone: evalulwvxi noteNo assessment information available [facility] Work Phone: evaluation noteNo InformationNortLif[facility] [employer] Other Hisvcsu general Narrative - Reported* Type Description Date [...] INJ URY, 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, 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 [facility] Other Hishjgd general Narrative - Reported* Type Description Date [...] INJ URY, 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, 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 [facility] Other history general Narrative - Reported* Type [...] 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 Hospitalization History SEE ABOVE [facility] Other Hospital Discharge instructions No data available for this section [facility] note No data available for this section [facility] Summary Purpose Family History No Family [...] Malignant neoplasm of urinary bladder Unk nown father Unknown Not Specified Unknown natural son Family history of mental disorder Unknown Advance Directives No Advanced Directives Records Found [...] n18.32 n 13.30 i71.40 e78.5 Chief Complaint I71.4 Chief Complaint * ALEX ANDERSON is being [...] section and content) DATE CREATED AUTHOR 05/12/2021 [facility] dical Specialist DATE CREATED AUTHOR AUTHOR'S ORGANIZ ATION 09/23/2022 [facility] DATE CREATED AUTHOR AUTHOR'S ORGANIZ ATION 01/23/2023 [facility] DATE CREATED AUTHOR AUTHOR'S ORGANIZ ATION 01/23/2023 [facility] DATE CREATED AUTHOR AUTHOR'S ORGANIZ ATION 08/05/2023 [facility] dical Specialists EPIC DATE CREATED AUTHOR AUTHOR'S ORGANIZ ATION 08/17/2023 [facility] DATE CREATED AUTHOR AUTHOR'S ORGANIZ ATION 08/22/2023 [facility] Patient Care team informatio n [...] Active Teo Stokes MD Referring Provider Active Team Status: Inactive Member Role Status Dates Stanley Emerson MD Primary Care Provider Active Start: August 18, 2023 End: August 18, 2023 Margarito Valentine MD Attending Provider Active Start: August 18, 2023 End: August 18, 2023 REASON FOR VISIT (unrecogniz ed section and content) [facility] HOSP F/UDiscuss AAA re pairTo go over CTA results3 week f/u EVAR4 WK FOLLOW UP; CTA [facility] 08/16/22RENAL 6 month Follow upBPREFILL Goals (unrecognized [...] BE BASED ON THE PRIMARY CLINICAL RECORDS. [employer] [facility]. provides no warranty or guarantee of the accuracy or completeness of information in this document.
[2023-09-05 13:50] LABS: C. Difficile PCR NEGATIVE (NEGATIVE)
== END 2023-09-05 10:56 | disposition home or self-care (01) ==
LOC: LAB 10:55
PROVIDERS: PCP Family Medicine; Visit Provider Family Medicine
DX: R19.7 Diarrhea, unspecified (principal)
CPT/HCPCS: 87493

== ENCOUNTER 2023-09-26 20:02 | Emergency (ER) | payer MEDICARE, OTHER, SELFPAY ==
--- OUTSIDE RECORDS SUMMARY | 2023-09-26 20:11 | XMS_ITS | CCD ---
Author Organization [facility] Care Team Providers Care Garment Manufacturer Name Role Phone Stanley Emerson Unavailable Unavailable Unavailable STANLEY EMERSON Primary Care Physician Unavail able MD Stanley Emerson Primary Care Provider [phone] MD Taz Barnes Admit Provider MD Margarito Valentine Other Provider MD Janice Gonzalez Other Provider DO Bernabe Cr Attending Provider [phone] MD Margarito Valentine Attending Provider MD Margarito Valentine Admit Provider Celia Griffin Unavailable Margarito Valentine Unavailable MOMO Schwab Attending Provider MD Stanley Emerson Primary Care Provider [phone] MD Taz Barnes Admit Provider MD Margarito Valentine Other Provider MD Janice Gonzalez Other Provider DO Bernabe Cr Attending Provider MD Margarito Valentine Attending Provider MD Margarito Valentine Admit Provider MOMO Schwab Attending Provider Carlene Kasper Unavailable HEMEYER ., DR PETERSON Primary Care Unavailable SAMUELS ., DR MONTALVO Admitting Unavailable SAMUELS ., DR MONTALVO Attending Unavailable SAMUELS ., DR MONTALVO Consulting Unavailable Corky Ford Consulting Unavailable HEMEYER ., DR PETERSON Primary Care Unavailable SAMUELS ., DR MONTALVO Admitting Unavailable SAMUELS ., DR MONTALVO Attending Unavailable SAMUELS ., DR MONTALVO Consulting Unavailable LOANJAZZY Jarquin [...] Araceli vailable Idania, Dr. Stanley Mercado Primary Care Unava ilable [...] Elliot Emerson, Dr. Stanley Mercado Primary Care Unava lucille Stokes, Dr. Teo Poon Attending Araceli romy Stokes, Dr. Teo Poon Attending Araceli romy Emerson, Dr. Stanley Mercado Primary Care MD Stanley Little Primary Care Provider [phone] MD Celia Griffin Attending Provider [phone] MD Teo Stokes Referring Provider [phone] STANLEY EMERSON Attending Unavailable STANLEY EMERSON Attending Unavailable STANLEY EMERSON Attending Unavailable SAMUELS, KATIA Hall Referring Unavailable MD Stanley Emerson Primary Care Provider MD Margarito Valentine Attending Provider Margarito Valentine Admitting UnavailMargarito Lara Attending Unavailabl e Stanley Emerson Primary Care Unavailable Teo Stokes Referring Unavailable Stanley Emerson Primary Care Unavailable Celia Griffin Admitting Unavailable Celia Griffin Attending Unavailable SAMUELS, Katia Hall Attending Unavailable SAMUELS, Katia R Attending Unavailable [...] Attending Unavailable SAMUELS, Katia R Attending Unavailable Allergies Allergy Classification Reported Allergen(s) Allergy Type Date of Onset Reaction(s) Facility (1 source) No Known Medication Allergies; Translations: [No Known Medication Allergies] Propensity to adverse reactions (disorder) [facility] Repository Medications Current Medications Medication Drug [...] take 1 tablet by mouth every hour Wadena 325 mg-7.5 mg oral tablet 1 tab(s), Oral, Once, 1 tab(s), Refill(s) 0, Take 1 hour prior to procedure, [facility]/pharmacy #[id number], 187, cm, 03/11/23 13:44:00 EDT, Height/Length Dosing, 93, kg, 03/11/23 13:44:00 EDT, Weight Dosing Start Date: 05/06/23 Status: Ordered Albuterol (Eqv-ProAir HFA) 90 mcg/inh inhalation aerosol (14 sources) Start: 06-10-2022 Albuterol (Eqv-ProAir HFA) 90 mcg/inh inhalation aerosol Refill(s) 0 Start Date: 06/10/22 Status: Ordered amLODIPine 5 mg oral tablet (8 sources) Dihydropyridine Calcium Channel Alfredito Start: 06-10-2023 [...] Active folic acid 1 mg oral tablet (18 sources) Start: 05-22-2022 folic acid 1 mg [...] daily May 16, 2022 1:00am Multivitamin preparation (19 sources) Start: 07-31-2022 multivitamin D aily, Refill(s) 0 Start Date: 07/31/22 Status: Ordered Multivitamin Act raji 24 hr oxybutynin chloride 10 mg extended release oral tablet (1 source) Cholinergic Muscarinic Antagonist Start: 06-11-2023 take 1 tablet by mouth once daily oxybutynin 10 mg ER Tab 10 mg = 1 tab(s), Oral, Daily, # 14 tab(s), Refills(s) 0, Pharmacy: [facility]/pharmacy #[id number], 187, cm, 06/10/23 13:43:00 EST, [...] 1:00am vitamin b12 1 mg oral capsule (17 sources) Vitamin B12 Start: 05-22-2022 End: 06-21-2022 [...] Drug Class(es) Dates Sig (Normalized) Sig (Original) [id number] 200 actuat albuterol 0.09 mg/actuat metered dose inhaler (18 sources) beta2-Adrenergic Agonist Start: 06-03-2022 Albuterol Sulfate [...] aspirin 81 mg delayed release oral tablet (11 sources) Platelet Aggregation Inhibitor, Nonsteroidal Anti-inflammatory Drug [...] procedure, # 6 tab(s), Refills(s) 0, Pharmacy: [facility]/pharmacy #[id number], 187, cm, 09/18/22 14:39:00 EDT, Height/Length Dosing, 93, kg, 09/18/22 14:39:00 EDT, Weight Dosing Start Date: 12/03/22 Status: Ordered Start: 07-25-2022 take 1 tablet by charlene once daily Cipro 250 mg Tab 250 mg = 1 tab(s), Oral, Daily, Take 1 tablet the day before the procedure and 1 tablet after the procedure, # 2 tab(s), Refills(s) 0, Pharmacy: [facility]/pharmacy #[id number], 187, cm, 06/11/22 9:11:00 EST, Height/Length Dosing, 93.5, kg, 06/11/22 9:11:00 EST, W... Start Date: 07/25/22 Status: Ordered Multi Vitamin Oral Tablet (1 source) take 1 tablet by charlene once daily Multi Vitamin Oral Tablet TAKE 1 TABLET DAILY. Quantity: 0 Refills: 0 Ordered: 22-Jan-2023 DO Active Problems Active Problems Problem Classification Problem Date Documented Da te Episodic/Chronic Acute and unspecified renal failure (20 sources) Acute renal failure syndrome; Translations: [Acute kidney failure, unspecified] Onset: 05-16-2022 Episodic Aortic; peripheral; and visceral artery aneurysms (20 sources) Abdominal aortic aneurysm; Translations: [Abdominal aneurysm without mention of rupture] Onset: 05-16-2022 Chronic Calculus of urinary tract (20 sources) Urinary bladder stone; Translations: [Calculus in bladder] Onset: 06-11-2022 Episodic Cancer of bladder (15 sources) Malignant tumor of urinary bladder; Translations: [Malignant neoplasm of bladder, unspecified] Onset: 09-18-2022 Chronic Cancer of bladder (3 sources) History of malignant neoplasm of bladder; Translations: [Personal history of malignant neoplasm of bladder] Onset: 12-10-2022 Episodic Cancer; other and unspecified primary (10 sources) H/O: malignant neoplasm 12-10-2022 Episodic Chronic kidney disease (11 sources) Chronic kidney disease stage 3B ; Translations: [Chronic kidney disease, stage 3b] Onset: 09-04-2022 09-18-2023 Chronic Chronic kidney disease (4 sources) Chronic kidney disease; Translations: [CHRONIC KIDNEY DISEASE STAGE 3B] Onset: 09-10-2022 Chronic obstructive pulmonary disease and bronchiectasis (13 sources) Pulmonary emphysema; Translations: [Simple chronic bronchitis] [...] unspecified] Onset: 06-10-2022 Episodic Hyperplasia of prostate (14 sources) Benign prostatic hypertrophy with outflow obstruction; [...] 05-22-2022 Episodic Other aftercare (1 source) Other senior care (current) drug therapy; Translations: [OTH 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 INSTRUCTOR CURRENT DRUG THERAPY] Onset: 09-23-2022 Episodic Other aftercare (1 source) prison (current) use of anticoagulants; Translations: [MACHINIST INSTRUCTOR CURRNT USE ANTICOAGULANTS] Onset: 09-08-2022 Episodic Other and ill-defined cerebrovascular disease (14 sources) Cerebral ischemia Onset: 05-16-2022 06-10-2022 Chronic [...] Chronic Other diseases of bladder and urethra (20 sources) Mass of urinary bladder; Translations: [Other specified disorders of bladder] 06-10-2022 Chronic Other diseases of bladder and urethra (4 sources) Other specified disorders of bladder; Translations: [Other specified disorders of bladder] 05-22-2022 Chronic Other diseases of bladder and urethra (13 sources) Lesion of bladder 07-31-2022 Chronic Other diseases of bladder and urethra (1 source) Diverticulum of bladder; Translations: [DIVERTICULUM OF BLADDER] Onset: 09-23-2022 Chronic Other diseases of bladder and urethra (1 source) Bladder disorder, unspecified; Translations: [BLADDER DISORDER UNSPECIFIED] Onset: 09-08-2022 Chronic Other diseases of kidney and ureters (16 sources) Hydroureter; Translations: [Hydroureter] Onset: 06-11-2022 Episodic Other diseases of kidney and ureters (2 sources) Disorder of kidney and/or ureter; Translations: [Disorder of kidney and ureter, unspecified] Onset: 06-11-2022 Episodic Other diseases of kidney and ureters (14 sources) Hydronephrosis 06-10-2022 Episodic Other diseases of kidney and ureters (14 sources) Kidney lesion 06-11-2022 Episodic Other diseases of kidney and ureters (8 sources) Bilateral hydronephrosis ; Translations: [Unspecified hydronephrosis] 05-22-2022 Episodic Other diseases of kidney and ureters (1 source) Urinary tract obstruction; Translations: [Other obstructive and reflux uropathy] Onset: 06-10-2023 Episodic Other diseases of veins and lymphatics (1 source) Venous insufficiency (chronic) (peripheral); Translations: [VENOUS INSUFF CHRONIC PERIPHERAL] Onset: 09-23-2022 Episodic Other gastrointestinal disorders (7 sources) Diarrhea; Translations: [Diarrhea, unspecified] 05-16-2022 Episodic Other nervous system disorders (7 sources) 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; Translations: [Circadian rhythm sleep disorder, unspecified type] 05-20-2022 Chronic Other nervous system disorders (7 sources) Metabolic encephalopathy; Translations: [Metabolic encephalopathy] 05-16-2022 [...] ADULT] Onset: 09-23-2022 Episodic Residual codes; unclassified (8 sources) Tobacco user; Translations: [Tobacco use] 05-22-2022 [...] 1/2 dozen cigarettes ; Transient cerebral ischemia (14 sources) Transient cerebral ischemia; Translations: [Unspecified transient [...] rupture, unspecified] Onset: 08-18-2023 Urinary tract infections (12 sources) Urinary tract infectious disease; Translations: [Urinary tract infection, site not specified] Onset: 09-16-2022 05-16-2022 Episodic Viral infection (4 sources) COVID-19; Translations: [COVID-19] Onset: 01-04-2022 Past or Other Problems Problem Classification Problem Date Documented Da te Episodic/Chronic Malaise and fatigue (4 sources) Other fatigue; Translations: [OTHER FATIGUE] Onset: 05-15-2022 Episodic Nausea and vomiting (1 source) Vomiting, unspecified; Translations: [VOMITING UNSPECIFIED] Onset: 05-23-2022 Episodic Other aftercare (1 source) 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 The mechoopda aneurysmal sac has decreased in size now [...] aortic aneurysm with interval decrease of the mechoopda aneurysmal sac since the prior CTA study. The stent is suboptimally evaluated due to lack of IV contrast. 2. Prostatomegaly with Zapien catheter in place. There appears to be urinary bladder wall thickening and inflammatory changes suspicious for cystitis. Correlation with urinalysis is recommended. Impression dictated by: Rogelio Agustin Jr., D.O.08/18/2023 3:18 PM Dictation Location: [place] [address] Transcribed By: [facility] 08/18/23 1518 Dictated By: Rogelio Agustin Jr, DO 08/18/23 1503 Signed By: 08/18/23 1518 [facility] Creatinine (Bld) [Mass/Vol]O rdered By: Margarito Valentine on 08-18-2023 Creatinine [Mass/Vol] 2.4 mg/dL 0.6-1.3 [facility] Comment on above: ER/ESD physician is notified/shown all ISTAT results.Critical values may be confirmed by laboratory testing ifdeemed necessary by ER attending doctor. ISTAT XRay CREon 08-18-2023 Creatinine [Mass/Vol] 2.4 mg/dL High 0.6-1.3 [facility] Comment on above: Result Comment: ER/E SD physician is notified/shown all ISTAT results. Critical values may be confirmed by laboratory testing if deemed necessary by ER attending doctor. Performed By: #### V [id number], MANDI, B12, MG, PHOS, CMP, FOL, FE and TIBC, URIC #### [facility] [address] [place] [address] [place] ISTAT GFR 26.776 [facility] Comment on above: Result Comment: PERF ORMED BY: [place] [address] PATHOLOGIST PARKS AND RECREATION MANAGER OREN OWEN M.D. Performed By: #### V [id number], MANDI, B12, MG, PHOS, CMP, FOL, FE and TIBC, URIC #### [facility] [address] [place] [address] No Panel InformationOrdered By: Margarito Valentine on 08-18-2023 Bedside Estimated GFR (eGFR) 26.776 [facility] Reminderson 08-14-2023 Reminders - From: Dana Rivas To: EU - Recalls Samuels; Sent: 09/18/2022 15:49:30 EDT Show up: 01/24/2023 15:49:00 EDT Subject: Cysto/FISH/cytol Due Date/Time: 02/10/2023 15:49:00 EDT Reminder/Recall Patient needs scheduled for 3 mo Cysto/FISH/cytol (bt ck) in Feb 2023 Patient sched for 03/11/23 in early office. Pt will be due in May 2023.LG Patient had cysto/Rezum on 06/10/23. He will be due in August 2023.LG Patient sched for 09/09/23 in early office.LG Normal [facility] ED Note-Physicianon 08-07-19 ED Note-Physician [id number]#1.00TIFF Normal [facility] ED Note-Physicianon 08-06-19 ED Note-Physician [id number]#1.00TIFF Normal [facility] ED Note-Physician [id number]#1.00TIFF [facility] ED Note-Physician [id number]#1.00TIFF Normal [facility] Lab Reportson 08-06-2023 Lab Reports [id number]#1.00TIFF [facility] Lab Reports [id number]#1.00TIFF [facility] Reminderson 08-01-2023 Reminders - From: Dana Rivas To: EU - Recalls Samuels; Cc: Dana Rivas; Sent: 03/14/2023 08:18:18 EDT Show up: 07/25/2023 08:18:00 EST Subject: cysto/fish/cytol Due Date/Time: 08/11/2023 08:18:00 EDT Reminder/Recall Patient is due in August 2023 for 3 month cysto/fish/cytol Patient sched for 09/09/23 in early office. he will be due in November 2023.LG Normal [facility] Physician Orderon 07-04-2023 Physician Order [id number]#1.00TIFF [facility] Patient Educationon 06-30-19 Patient Education Urology [...] these instructions at home: Medicines ? Take tnei-zqu-czikvjg and prescription medicines only as told by [...] provider. Document Revised: 01/31/2021 Document Reviewed: 01/31/2021 [employer] Patient Education ? 2022 [employer] Carmella T[facility] Urology Office/Clinic Noteon 06-30-2023 Urology Office/Clinic Note Chief Complaint f/u to Joshua HPI Staff F/u to Joshua done 06/10/23. Dx: hx of bladder cancer, [...] [facility] [address], [place] [address]- [phone] Additional Instructions: 1 day for catheter removal Patient Education Acute Urinary Retention, Male I, Apple Jevon, personally scribed for Dr. Samuels on 06/30/2023 14:30:01. . Documentation recorded by the Apple carter, accurately reflects the services(s) I performed and [...] Use:. Cigarettes, (more content not included)... Normal [facility] Comment on above: Result Comment: Elec tronically Signed By: Katia SAMUELS MD\.br\Date and Time Signed: 06/30/23 14:32 EST\.br\Electronically Co-Signed By: Apple Escoto\.br\Date and Time Co-Signed: 06/30/23 14:30 EST [facility] Fish and Urine Cyt o ([facility])on 06-26-2023 [facility] Revision Information Invalid Interpretation Code [facility] Comment on above: Result Comment: Brayan ection Reason -[ Fredi Stephen, 06/26/23 - 10:32 ] Corrected report issued to update PMS/PWS. The diagnosis remains unchanged. Correction Notes - Performed By: #### 1 [id number] #### [facility] [address] [id number] Ambulatory Visit Summaryon 0 06-16-2023 Ambulatory Visit Summary ALEX ANDERSON :1945 Visit Date:06/16/2023 Ambulatory Visit Instructions Your Diagnosis BPH with urinary obstruction Your Care Team Attending Physician - Katia SAMUELS MD Primary Care Physician - IDANIA CASILLAS, STANLEY Rich This Is Your Medications List acetaminophen-hydrocodone ([place]adena 325 mg-7.5 mg oral tablet) albuterol (Albuterol [...] Katia SAMUELS MD Where: [facility] Consent for Procedure/Surger yon 06-10-2023 Consent for Procedure/Surgery [id number]#1.00TIFF [facility] Consent for Treatmenton 05-26 Consent for Treatment [id number]#1.00TIFF [facility] IntraOperative Documentson 0 06-10-2023 IntraOperative Documents [id number]#1.00TIFF [facility] Main OR Intraoperative Recor don 06-10-2023 Main OR Intraoperative Record IntraOp Document Type FTURO Summary Primary Physician: Katia SAMUELS MD Finalized Date/Time: 06/10/23 15:18:46 Pt. Name: ALEX ANDERSON.O.B./Sex: 1945 Male Med Rec #: [id number] Physician: Katia SAMUELS MD Financial #: [id number] Pt. Type: O Room/Bed: / Admit/Disch: 06/10/23 12:50:19 - Institution: Case Times FTURO Entry 1 Patient Times In Room 06/10/23 14:32:00 Out Room 06/10/23 15:13:00 Procedure Times Start 06/10/23 14:40:00 Stop 06/10/23 15:07:00 Anesthesia Times Last Modified By: Clifford CHAN, KATEOR, Gayatri 06/10/23 15:07:12 Case Attendance FTURO Entry 1 Entry 2 Entry 3 Case Attendee ARLENE CASILLAS, Katia Horton RN, CNOR, Kathleen Lai Role Performed Surgeon - Primary Steel Erector Apprentice - Primary Scrub - Primary Time In 06/10/23 14:32:00 06/10/23 14:32:00 06/10/23 14:32:00 Time Out 06/10/23 15:13:00 06/10/23 15:13:00 06/10/23 15:13:00 Procedure CYSTOSCOPY LOCAL CYSTOSCOPY LOCAL CYSTOSCOPY LOCAL REZUM(.) REZUM(.) REZUM(.) Comments l piña security incident response specialist in room orienting Last Modified By: Clifford RN, CNOR, Clifford RN, CNOR, Clifford RN, CNOR, Gayatri 06/10/23 Gayatri 06/10/23 Gayatri 06/10/23 15:07:13 15:07:13 15:07:13 Surgical Procedures FTURO Entry 1 Procedure Description Procedure CYSTOSCOPY LOCAL REZUM Modifiers . Surgeon Description cysto, REZUM treatment x 12 Primary Procedure Yes Primary Surgeon ARLENE CASILLAS, Katia Hall Start 06/10/23 14:40:00 Stop 06/10/23 15:07:00 Anesthesia [...] CYSTOSCOPY LOCAL Patient Identity Birthday, ID Band JOSHUA(.) Verified (select at Check, Patient least 2): [...] WOLFGANG Horton RN, Ruthann 06/10/23 15:18 Normal [facility] Main OR Preoperative Recordo n 06-10-2023 Main OR Preoperative Record Holding Area Document Type FTURO Summary Primary Physician: Katia SAMUELS MD Finalized Date/Time: 06/10/23 14:49:26 Pt. Name: TARASALEX/Sex: 1945 Male Med Rec #: [id number] Physician: Katia SAMUELS MD Financial #: [id number] Pt. Type: O Room/Bed: / Admit/Disch: 06/10/23 [...] GLASSES; BILATERAL Limitations: UP AD JOSIAH. PT SANTO DOMINGO Comment: CATARACT LENS IMPLANTS Complaints of Pain: [...] WOLFGANG Horton RN, Ruthann 06/10/23 14:49 Normal [facility] Operative Reporton Operative Report Patient: MELISSA [...] satisfactory condition, Discharge instructions are provided. Normal [facility] Comment on above: Result Comment: Elec tronically Signed By: Katia SAMUELS MD\Sigridbr\Date and Time Signed: 06/10/23 15:21 EST Operative [...] with antibiotic coverage, Follow up arranged. Normal [facility] Comment on above: Result Comment: Elec tronically Signed By: Katia SAMUELS MD.br\Date and Time Signed: 06/10/23 15:20 EST [facility] Fish and Urine Cyt o ([facility])on 06-10-2023 [facility] Method of Extraction Catheterized Normal [facility] Comment on above: Performed By: #### 1 [id number] #### [facility] [address] [place] [address] [facility] Number of Jars 1 Invalid Interpretation Code [facility] Comment on above: Performed By: #### 1 [id number] #### [facility] [address] [place] [address] [facility] Specimen Urine Normal [facility] Comment on above: Performed By: #### 1 [id number] #### [facility] [address] [place] [address] [facility] Type of Service Technical Only Normal [facility] Comment on above: Performed By: #### 1 [id number] #### [facility] [address] [place] [address] Alanine aminotransferase [En zymatic activity/volume] in Serum or PlasmaOrdered By: Celia Griffin on 04-08-2023 ALT [Catalytic activity/Vol] 17 U/L 7-52 [facility] Albumin [Mass/volume] in Ser um or Plasma by Bromocresol green (BCG) dye binding methoOrdered By: Celia Griffin on 04-08-2023 Albumin BCG dye [Mass/Vol] 4.2 g/dL 3.5-5.7 [facility] Alkaline phosphatase [Enzyma tic activity/volume] in Serum or PlasmaOrdered By: Celia Griffin on 04-08-2023 ALP [Catalytic activity/Vol] 72 U/L 34-104 [facility] Aspartate aminotransferase [ Enzymatic activity/volume] in Serum or PlasmaOrdered By: Celia Griffin on 04-08-2023 AST [Catalytic activity/Vol] 16 U/L 13-39 [facility] Automated erythrocytes count in urine sediment (number/area)Ordered By: Celia Griffin on 04-08-2023 RBC Auto (Urine sed) [#/Area] 3-4 [HPF] 0-4 [facility] Automated leukocytes count i n urine sediment (number/area)Ordered By: Celia Griffin on 04-08-2023 WBC Auto (Urine sed) [#/Area] 50-100 [HPF] 0-4 [facility] Bilirubin Test strip Ql (U)O rdered By: Celia Griffin on 04-08-2023 Bilirubin Ql (U) Negative Negative [facility] Bilirubin.total [Mass/volume ] in Serum or PlasmaOrdered By: Celia Griffin on 04-08-2023 Bilirubin [Mass/Vol] 0.5 mg/dL 0.3-1.0 [facility] Calcium [Mass/volume] in Ser um or PlasmaOrdered By: Celia Griffin on 04-08-2023 Calcium [Mass/Vol] 9.3 mg/dL 8.6-10.3 [facility] Carbon dioxide, total [Moles /volume] in Serum or PlasmaOrdered By: Celia Griffin on 04-08-2023 CO2 [Moles/Vol] 31.6 mmol/L 21.0-31.0 [facility] Chloride [Moles/volume] in S marium or PlasmaOrdered By: Celia Griffin on 04-08-2023 Chloride [Moles/Vol] 107 mmol/L 98-107 [facility] Cholesterol [Mass/volume] in Serum or PlasmaOrdered By: Teo Stokes on 04-08-2023 Cholesterol [Mass/Vol] 107 mg/dL 140-200 [facility] Comment on above: Chol less than 200 m g/dl low riskChol 201-239 mg/dl borderline riskChol 240 mg/dl and greater high risk Cholesterol in LDL Calc [Mas s/Vol]Ordered By: Teo Stokes on 04-08-2023 Cholesterol in LDL [Mass/Vol] 47 mg/dL 0-100 [facility] Comment on above: LDL ATP III CLASSIFI CATIONLDL less than 100 mg/dL OptimalLDL 100-129 mg/dL Near or above optimalLDL 130-159 mg/dL Borderline highLDL 160-189 mg/dL HighLDL greater than 189 mg/dL Very high Cholesterol in VLDL Calc [Ma ss/Vol]Ordered By: Teo Stokes on 04-08-2023 Cholesterol in VLDL [Mass/Vol] 26 mg/dL [facility] Color Auto (U)Ordered By: Jonh Griffin on 04-08-2023 Color (U) Yellow Yellow [facility] Comprehensive Metabolic Pane howard 04-08-2023 Albumin [Mass/Vol] 4.2 g/dL Normal 3.5-5.7 [facility] Comment on above: Order Comment: Reaso n for Exam Acute kidney injury;Chronic kidney disease, stage 3b;Bilater Performed By: #### V [id number], MANDI, B12, MG, PHOS, CMP, FOL, FE and TIBC, URIC #### [facility] [address] Albumin/Globulin [Mass ratio] 1.5 {ratio} Normal [facility] Comment on above: Order Comment: Reaso n for Exam Acute kidney injury;Chronic kidney disease, stage 3b;Bilater Performed By: #### V [id number], MANDI, B12, MG, PHOS, CMP, FOL, FE and TIBC, URIC #### [facility] [address] ALP [Catalytic activity/Vol] 72 U/L Normal 34-104 [facility] Comment on above: Order Comment: Reaso n for Exam Acute kidney injury;Chronic kidney disease, stage 3b;Bilater Performed By: #### V [id number], MANDI, B12, MG, PHOS, CMP, FOL, FE and TIBC, URIC #### [facility] [address] ALT [Catalytic activity/Vol] 17 U/L Normal 7-52 [facility] Comment on above: Order Comment: Reaso n for Exam Acute kidney injury;Chronic kidney disease, stage 3b;Bilater Performed By: #### V [id number], MANDI, B12, MG, PHOS, CMP, FOL, FE and TIBC, URIC #### [facility] [address] Anion gap [Moles/Vol] 8.9 mmol/L Normal 6.0-15.0 [facility] Comment on above: Order Comment: Reaso n for Exam Acute kidney injury;Chronic kidney disease, stage 3b;Bilater Performed By: #### V [id number], MANDI, B12, MG, PHOS, CMP, FOL, FE and TIBC, URIC #### [facility] [address] AST [Catalytic activity/Vol] 16 U/L Normal 13-39 [facility] Comment on above: Order Comment: Reaso n for Exam Acute kidney injury;Chronic kidney disease, stage 3b;Bilater Performed By: #### V [id number], MANDI, B12, MG, PHOS, CMP, FOL, FE and TIBC, URIC #### [facility] [address] Bilirubin [Mass/Vol] 0.5 mg/dL Normal 0.3-1.0 [facility] Comment on above: Order Comment: Reaso n for Exam Acute kidney injury;Chronic kidney disease, stage 3b;Bilater Performed By: #### V [id number], MANDI, B12, MG, PHOS, CMP, FOL, FE and TIBC, URIC #### [facility] [address] Calcium [Mass/Vol] 9.3 mg/dL Normal 8.6-10.3 [facility] Comment on above: Order Comment: Reaso n for Exam Acute kidney injury;Chronic kidney disease, stage 3b;Bilater Performed By: #### V [id number], MANDI, B12, MG, PHOS, CMP, FOL, FE and TIBC, URIC #### [facility] [address] Chloride [Moles/Vol] 107 mmol/L Normal 98-107 [facility] Comment on above: Order Comment: Reaso n for Exam Acute kidney injury;Chronic kidney disease, stage 3b;Bilater Performed By: #### V [id number], MANDI, B12, MG, PHOS, CMP, FOL, FE and TIBC, URIC #### [facility] [address] CO2 [Moles/Vol] 31.6 mmol/L High 21.0-31.0 [facility] Comment on above: Order Comment: Reaso n for Exam Acute kidney injury;Chronic kidney disease, stage 3b;Bilater Performed By: #### V [id number], MANDI, B12, MG, PHOS, CMP, FOL, FE and TIBC, URIC #### [facility] [address] Creatinine [Mass/Vol] 1.41 mg/dL High 0.70-1.30 [facility] Comment on above: Order Comment: Reaso n for Exam Acute kidney injury;Chronic kidney disease, stage 3b;Bilater Performed By: #### V [id number], MANDI, B12, MG, PHOS, CMP, FOL, FE and TIBC, URIC #### [facility] [address] GFR/1.73 sq M.predicted MDRD (S/P/Bld) [Vol rate/Area] 50.692 mL/min/{1.73_m2} Normal [facility] Comment on above: Order Comment: Reaso n for Exam Acute kidney injury;Chronic kidney disease, stage 3b;Bilater Performed By: #### V [id number], MANDI, B12, MG, PHOS, CMP, FOL, FE and TIBC, URIC #### [facility] [address] Globulin (S) [Mass/Vol] 2.8 g/dL Normal [facility] Comment on above: Order Comment: Reaso n for Exam Acute kidney injury;Chronic kidney disease, stage 3b;Bilater Performed By: #### V [id number], MANDI, B12, MG, PHOS, CMP, FOL, FE and TIBC, URIC #### [facility] [address] Glucose [Mass/Vol] 107 mg/dL High 70-100 [facility] Comment on above: Order Comment: Reaso n for Exam Acute kidney injury;Chronic kidney disease, stage 3b;Bilater Result Comment: [facility] Glucose Reference Range is dependent on time and content of last meal. Glucose of more than 200 mg/dL in a nonstressed, ambulatory subject supports the diagnosis of Diabetes Mellitus. ADA recommended reference range Performed By: #### V [id number], MANDI, B12, MG, PHOS, CMP, FOL, FE and TIBC, URIC #### [facility] [address] Potassium [Moles/Vol] 4.5 mmol/L Normal 3.5-5.1 [facility] Comment on above: Order Comment: Reaso n for Exam Acute kidney injury;Chronic kidney disease, stage 3b;Bilater Performed By: #### V [id number], MANDI, B12, MG, PHOS, CMP, FOL, FE and TIBC, URIC #### [facility] [address] Protein [Mass/Vol] 7.0 g/dL Normal 6.4-8.9 [facility] Comment on above: Order Comment: Reaso n for Exam Acute kidney injury;Chronic kidney disease, stage 3b;Bilater Performed By: #### V [id number], MANDI, B12, MG, PHOS, CMP, FOL, FE and TIBC, URIC #### [facility] [address] Sodium [Moles/Vol] 143 mmol/L Normal 136-145 [facility] Comment on above: Order Comment: Reaso n for Exam Acute kidney injury;Chronic kidney disease, stage 3b;Bilater Performed By: #### V [id number], MANDI, B12, MG, PHOS, CMP, FOL, FE and TIBC, URIC #### [facility] [address] Urea nitrogen [Mass/Vol] 27 mg/dL High 7-25 [facility] Comment on above: Order Comment: Reaso n for Exam Acute kidney injury;Chronic kidney disease, stage 3b;Bilater Performed By: #### V [id number], MANDI, B12, MG, PHOS, CMP, FOL, FE and TIBC, URIC #### [facility] [address] Creatinine [Mass/volume] in Serum or PlasmaOrdered By: Celia Griffin on 04-08-2023 Creatinine [Mass/Vol] 1.41 mg/dL 0.70-1.30 [facility] Creatinine [Mass/volume] in UrineOrdered By: Celia Griffin on 04-08-2023 Creatinine (U) [Mass/Vol] 90.0 mg/dL 14.0-26.0 [facility] Dipstick and Microscopicon 1 06-08-2022 Appearance (U) Cloudy Critically abnormal Clear [facility] Comment on above: Order Comment: Reaso n for Exam Acute kidney injury;Chronic kidney disease, stage 3b;Bilater Performed By: #### V [id number], MANDI, B12, MG, PHOS, CMP, FOL, FE and TIBC, URIC #### [facility] [address] Bacteria,Urine 4+ High None Seen [facility] Comment on above: Order Comment: Reaso n for Exam Acute kidney injury;Chronic kidney disease, stage 3b;Bilater Performed By: #### V [id number], MANDI, B12, MG, PHOS, CMP, FOL, FE and TIBC, URIC #### [facility] [address] Bilirubin,Urine Negative Normal Negative [facility] Comment on above: Order Comment: Reaso n for Exam Acute kidney injury;Chronic kidney disease, stage 3b;Bilater Performed By: #### V [id number], MANDI, B12, MG, PHOS, CMP, FOL, FE and TIBC, URIC #### [facility] [address] [place] [address] Color (U) Yellow Normal Yellow [facility] Comment on above: Order Comment: Reaso n for Exam Acute kidney injury;Chronic kidney disease, stage 3b;Bilater Performed By: #### V [id number], MANDI, B12, MG, PHOS, CMP, FOL, FE and TIBC, URIC #### [facility] [address] [place] [address] Glucose Ql (U) Normal Normal Normal [facility] Comment on above: Order Comment: Reaso n for Exam Acute kidney injury;Chronic kidney disease, stage 3b;Bilater Performed By: #### V [id number], MANDI, B12, MG, PHOS, CMP, FOL, FE and TIBC, URIC #### [facility] [address] [place] [address] Hyaline Casts,Urine 9-19 High 0-8 [facility] Comment on above: Order Comment: Reaso n for Exam Acute kidney injury;Chronic kidney disease, stage 3b;Bilater Result Comment: PERF ORMED BY: [place] [address] PATHOLOGIST [employer] OREN OWEN M.D. Performed By: #### V [id number], MANDI, B12, MG, PHOS, CMP, FOL, FE and TIBC, URIC #### [address] [place] [address] [place] Ketones Ql (U) Negative Normal Negative [facility] Comment on above: Order Comment: Reaso n for Exam Acute kidney injury;Chronic kidney disease, stage 3b;Bilater Performed By: #### V [id number], MANDI, B12, MG, PHOS, CMP, FOL, FE and TIBC, URIC #### [facility] [address] Leukocyte esterase Test strip Ql (U) 4+ High Negative [facility] Comment on above: Order Comment: Reaso n for Exam Acute kidney injury;Chronic kidney disease, stage 3b;Bilater Performed By: #### V [id number], MANDI, B12, MG, PHOS, CMP, FOL, FE and TIBC, URIC #### [facility] [address] Nitrite,Urine Positive High Negative [facility] Comment on above: Order Comment: Reaso n for Exam Acute kidney injury;Chronic kidney disease, stage 3b;Bilater Performed By: #### V [id number], MANDI, B12, MG, PHOS, CMP, FOL, FE and TIBC, URIC #### [facility] [address] Occult Blood,Urine 1+ High Negative [facility] Comment on above: Order Comment: Reaso n for Exam Acute kidney injury;Chronic kidney disease, stage 3b;Bilater Result Comment: PERF ORMED BY: [address] [place] [address] PATHOLOGIST [employer]GER OREN OWEN M.D. Performed By: #### V [id number], MANDI, B12, MG, PHOS, CMP, FOL, FE and TIBC, URIC #### [facility] [address] [place] [address] pH (U) 7.0 [pH] Normal 5.0-9.0 [facility] Comment on above: Order Comment: Reaso n for Exam Acute kidney injury;Chronic kidney disease, stage 3b;Bilater Performed By: #### V [id number], MANDI, B12, MG, PHOS, CMP, FOL, FE and TIBC, URIC #### [facility] [address] Protein,Urine Trace High Negative [facility] Comment on above: Order Comment: Reaso n for Exam Acute kidney injury;Chronic kidney disease, stage 3b;Bilater Performed By: #### V [id number], MANDI, B12, MG, PHOS, CMP, FOL, FE and TIBC, URIC #### [facility] [address] RBC,Urine 3-4 Normal 0-4 [facility] Comment on above: Order Comment: Reaso n for Exam Acute kidney injury;Chronic kidney disease, stage 3b;Bilater Performed By: #### V [id number], MANDI, B12, MG, PHOS, CMP, FOL, FE and TIBC, URIC #### [facility] [address] Specificy [place],Urine 1.017 Normal 1.00 1-1.03 0 [facility] Comment on above: Order Comment: Reaso n for Exam Acute kidney injury;Chronic kidney disease, stage 3b;Bilater Performed By: #### V [id number], MANDI, B12, MG, PHOS, CMP, FOL, FE and TIBC, URIC #### [facility] [address] Squamous Epithelial Cell,Urine 0-1 Normal 0-2 [facility] Comment on above: Order Comment: Reaso n for Exam Acute kidney injury;Chronic kidney disease, stage 3b;Bilater Performed By: #### V [id number], MANDI, B12, MG, PHOS, CMP, FOL, FE and TIBC, URIC #### [facility] [address] Urobilinogen,Urine Normal Normal Normal [facility] Comment on above: Order Comment: Reaso n for Exam Acute kidney injury;Chronic kidney disease, stage 3b;Bilater Performed By: #### V [id number], MANDI, B12, MG, PHOS, CMP, FOL, FE and TIBC, URIC #### [facility] [address] [place] [address] WBC,Urine 50-100 High 0-4 [facility] Comment on above: Order Comment: Reaso n for Exam Acute kidney injury;Chronic kidney disease, stage 3b;Bilater Performed By: #### V [id number], MANDI, B12, MG, PHOS, CMP, FOL, FE and TIBC, URIC #### [facility] [address] [place] [address] [place] Erythrocyte distribution wid th Auto (RBC) [Ratio]Ordered By: Celia Griffin on 04-08-2023 Erythrocyte distribution width (RBC) [Ratio] 15.7 % 12.0-14.8 [facility] Ferritinon 04-08-2023 Ferritin [Mass/Vol] 34.1 ng/mL Normal 23.9-336.2 [facility] Comment on above: Order Comment: Reaso n for Exam Acute kidney injury;Chronic kidney disease, stage 3b;Bilater Performed By: #### V [id number], MANDI, B12, MG, PHOS, CMP, FOL, FE and TIBC, URIC #### [facility] [address] [place] [id number] [place] Ferritin [Mass/volume] in Se rum or PlasmaOrdered By: Celia Griffin on 04-08-2023 Ferritin [Mass/Vol] 34.1 ng/mL 23.9-336.2 [facility] Folateon 04-08-2023 Folate 34.0 ng/mL Normal >5.9 [facility] Comment on above: Order Comment: Reaso n for Exam Acute kidney injury;Chronic kidney disease, stage 3b;Bilater Result Comment: Caryn te reference range: >5.9 ng/ml The WHO technical consultation on folate and vitamin b12 deficiencies has determined that folate concentrations less than 4 ng/ml are considered deficient. Performed By: #### V [id number], MANDI, B12, MG, PHOS, CMP, FOL, FE and TIBC, URIC #### [facility] [address] [place] [address] [place] Folate [Mass/volume] in Seru m or PlasmaOrdered By: Celia Griffin on 04-08-2023 Folate [Mass/Vol] 34.0 ng/mL >5.9 [facility] Comment on above: Folate reference ran ge: >5.9 ng/mlThe WHO technical consultation on folate and vitamin [id number] has determined that folate concentrations lessthan 4 ng/ml are considered deficient. Globulin Calc (S) [Mass/Vol] Ordered By: Celia Griffin on 04-08-2023 Globulin (S) [Mass/Vol] 2.8 g/dL F [facility] Glucose [Mass/volume] in Ser um or PlasmaOrdered By: Celia Griffin on 04-08-2023 Glucose [Mass/Vol] 107 mg/dL 70-100 [facility] Comment on above: ADA recommended refe rence rangeRandom Glucose Reference Range is dependent on time and content of last meal. Glucose of more than 200 mg/dL in a nonstressed, ambulatory subject supports the diagnosis of Diabetes Mellitus. Hematocrit Auto (Bld) [Volum e fraction]Ordered By: Celia Griffin on 04-08-2023 Hematocrit (Bld) [Volume fraction] 43.8 % 38.8-50.0 [facility] Hemoglobin [Mass/volume] in BloodOrdered By: Celia Griffin on 04-08-2023 Hemoglobin (Bld) [Mass/Vol] 14.3 g/dL 13.0-17.0 [facility] Hemogram CBC Without Diffon 04-08-2023 Erythrocyte distribution width (RBC) [Ratio] 15.7 % High 12.0-14.8 [facility] Comment on above: Order Comment: Reaso n for Exam Acute kidney injury;Chronic kidney disease, stage 3b;Bilater Performed By: #### V [id number], MANDI, B12, MG, PHOS, CMP, FOL, FE and TIBC, URIC #### [facility] [address] Hematocrit (Bld) [Volume fraction] 43.8 % Normal 38.8-50.0 [facility] Comment on above: Order Comment: Reaso n for Exam Acute kidney injury;Chronic kidney disease, stage 3b;Bilater Performed By: #### V [id number], MANDI, B12, MG, PHOS, CMP, FOL, FE and TIBC, URIC #### [facility] [address] [place] [address] [place] Hemoglobin (Bld) [Mass/Vol] 14.3 g/dL Normal 13.0-17.0 [facility] Comment on above: Order Comment: Reaso n for Exam Acute kidney injury;Chronic kidney disease, stage 3b;Bilater Performed By: #### V [id number], MANDI, B12, MG, PHOS, CMP, FOL, FE and TIBC, URIC #### [facility] [address] MCH (RBC) [Entitic mass] 27.3 pg Low 27.5-35.2 [facility] Comment on above: Order Comment: Reaso n for Exam Acute kidney injury;Chronic kidney disease, stage 3b;Bilater Performed By: #### V [id number], MANDI, B12, MG, PHOS, CMP, FOL, FE and TIBC, URIC #### [facility] [address] MCV (RBC) [Entitic vol] 83.8 fL Normal 83.5-101 F [facility] Comment on above: Order Comment: Reaso n for Exam Acute kidney injury;Chronic kidney disease, stage 3b;Bilater Performed By: #### V [id number], MANDI, B12, MG, PHOS, CMP, FOL, FE and TIBC, URIC #### [facility] [address] Mean Corpuscular HGB Conc 32.6 g/dL Normal 32.5-35.6 [facility] Comment on above: Order Comment: Reaso n for Exam Acute kidney injury;Chronic kidney disease, stage 3b;Bilater Performed By: #### V [id number], MANDI, B12, MG, PHOS, CMP, FOL, FE and TIBC, URIC #### [facility] [address] Platelet mean volume (Bld) [Entitic vol] 8.6 fL Normal 6.6-10.1 [facility] Comment on above: Order Comment: Reaso n for Exam Acute kidney injury;Chronic kidney disease, stage 3b;Bilater Result Comment: PERF ORMED BY: [place] [address] PATHOLOGIST [employer]NAGER OREN OWEN M.D. Performed By: #### V [id number], MANDI, B12, MG, PHOS, CMP, FOL, FE and TIBC, URIC #### [facility] [address] Platelets (Bld) [#/Vol] 201 10*3/uL Normal 150-450 [facility] Comment on above: Order Comment: Reaso n for Exam Acute kidney injury;Chronic kidney disease, stage 3b;Bilater Performed By: #### V [id number], MANDI, B12, MG, PHOS, CMP, FOL, FE and TIBC, URIC #### [facility] [address] RBC (Bld) [#/Vol] 5.22 10*6/uL Normal 3.90-5.60 [facility] Comment on above: Order Comment: Reaso n for Exam Acute kidney injury;Chronic kidney disease, stage 3b;Bilater Performed By: #### V [id number], MANDI, B12, MG, PHOS, CMP, FOL, FE and TIBC, URIC #### [facility] [address] WBC (Bld) [#/Vol] 8.4 10*3/uL Normal 4.1-10.5 [facility] Comment on above: Order Comment: Reaso n for Exam Acute kidney injury;Chronic kidney disease, stage 3b;Bilater Performed By: #### V [id number], MANDI, B12, MG, PHOS, CMP, FOL, FE and TIBC, URIC #### [facility] [address] Iron [Mass/volume] in Serum or PlasmaOrdered By: Celia Griffin on 04-08-2023 Iron [Mass/Vol] 53 ug/dL 50-212 [facility] Iron and TIBC Profileon 03-26 % Iron Saturation 14.3 % Low 20-50 [facility] Comment on above: Order Comment: Reaso n for Exam Acute kidney injury;Chronic kidney disease, stage 3b;Bilater Performed By: #### V [id number], MANDI, B12, MG, PHOS, CMP, FOL, FE and TIBC, URIC #### [facility] [address] [place] [address] [place] Iron [Mass/Vol] 53 ug/dL Normal 50-212 [facility] Comment on above: Order Comment: Reaso n for Exam Acute kidney injury;Chronic kidney disease, stage 3b;Bilater Performed By: #### V [id number], MANDI, B12, MG, PHOS, CMP, FOL, FE and TIBC, URIC #### [facility] [address] Total Iron Binding Capacity 370 ug/dL Normal 255-450 [facility] Comment on above: Order Comment: Reaso n for Exam Acute kidney injury;Chronic kidney disease, stage 3b;Bilater Performed By: #### V [id number], MANDI, B12, MG, PHOS, CMP, FOL, FE and TIBC, URIC #### [facility] [address] [place] [address] [place] Transferrin [Mass/Vol] 264 mg/dL Normal 203-362 [facility] Comment on above: Order Comment: Reaso n for Exam Acute kidney injury;Chronic kidney disease, stage 3b;Bilater Performed By: #### V [id number], MANDI, B12, MG, PHOS, CMP, FOL, FE and TIBC, URIC #### [facility] [address] Iron binding capacity [Mass/ volume] in Serum or PlasmaOrdered By: Celia Griffin on 04-08-2023 Iron binding capacity [Mass/Vol] 370 ug/dL 255-450 [facility] Iron saturation [Mass Fracti on] in Serum or PlasmaOrdered By: Celia Griffin on 04-08-2023 Iron saturation [Mass fraction] 14.3 % 20-50 [facility] Ketones Auto test strip (U) [Mass/Vol]Ordered By: Celia Griffin on 04-08-2023 Ketones (U) [Mass/Vol] Negative Negative [facility] - UrinalysisOrder ed By: Celia Griffin on 04-08-2023 Hyaline casts LM Ql (Urine sed) 9-19 [LPF] 0-8 [facility] Leukocytes [#/volume] correc phil for nucleated erythrocytes in Blood by Automated counOrdered By: Celia Griffin on 04-08-2023 WBC corrected for nucl RBC Auto (Bld) [#/Vol] 8.4 10*3/uL 4.1-10.5 [facility] Lipid Panelon 04-08-2023 Cholesterol [Mass/Vol] 107 mg/dL Low 140-200 [facility] Comment on above: Result Comment: Chol less than 200 mg/dl low risk Chol 201-239 mg/dl borderline risk Chol 240 mg/dl and greater high risk Performed By: #### L IPID #### [facility] [address] [place] [address] [place] Cholesterol in HDL [Mass/Vol] 34 mg/dL Normal 23-92 [facility] Comment on above: Result Comment: HDL CHOL ATP-III CLASSIFICATION Cardiovascular Risk HDL > or equal to 60 mg/dL LOW HDL < 40 mg/dL HIGH Performed By: #### L IPID #### [facility] [address] Cholesterol.total/Sonya sterol in HDL [Mass ratio] 3.1 {ratio} Normal <5.0 [facility] Comment on above: Result Comment: PERF ORMED BY: [place] [address] PATHOLOGIST [employer]NAGER OREN OWEN M.D. Performed By: #### L IPID #### [facility] [address] LDL Cholesterol,Calculated 47 mg/dL Normal 0-100 [facility] Comment on above: Result Comment: LDL ATP III CLASSIFICATION LDL less than 100 mg/dL Optimal LDL 100-129 mg/dL Near or above optimal LDL 130-159 mg/dL Borderline high LDL 160-189 mg/dL High LDL greater than 189 mg/dL Very high Performed By: #### L IPID #### [facility] [address] [place] [id number] [place] Triglyceride w/Reflex 131 mg/dL Normal 0-149 [facility] Comment on above: Result Comment: TRIG ATP III CLASSIFICATION TRIG less than 150 mg/dL Normal TRIG 150-199 mg/dL Borderline high TRIG 200-500 mg/dL High TRIG greater than 500 mg/dL Very high Standard traceable to the Center for Disease Conrtrol and Prevention (CDC) test method. Performed By: #### L IPID #### [facility] [address] VLDL CHOLESTEROL 26 mg/dL Normal [facility] Comment on above: Performed By: #### L IPID #### [facility] [address] MCH Auto (RBC) [Entitic mass ]Ordered By: Celia Griffin on 04-08-2023 MCH (RBC) [Entitic mass] 27.3 pg 27.5-35.2 [facility] MCHC Auto (RBC) [Mass/Vol]Or dered By: Celia Griffin on 04-08-2023 MCHC (RBC) [Mass/Vol] 32.6 g/dL 32.5-35.6 [facility] MCV Auto (RBC) [Entitic vol] Ordered By: Celia Griffin on 04-08-2023 MCV (RBC) [Entitic vol] 83.8 fL 83.5-101 F [facility] Magnesiumon 04-08-2023 Magnesium [Mass/Vol] 2.2 mg/dL Normal 1.9-2.7 [facility] Comment on above: Order Comment: Reaso n for Exam Acute kidney injury;Chronic kidney disease, stage 3b;Bilater Performed By: #### V [id number], MANDI, B12, MG, PHOS, CMP, FOL, FE and TIBC, URIC #### [facility] [address] Magnesium [Mass/volume] in S marium or PlasmaOrdered By: Celia Griffin on 04-08-2023 Magnesium [Mass/Vol] 2.2 mg/dL 1.9-2.7 [facility] Nitrite Test strip Ql (U)Ord ered By: Celia Griffin on 04-08-2023 Nitrite Ql (U) Positive Negative [facility] No Panel InformationOrdered By: Celia Griffin on 04-08-2023 Estimated GFR (CKD-EPI) 50.692 mL/Min [facility] Creatinine Clearance (Chem N/A [facility] Parathyrin.intact [Mass/volu me] in Serum or PlasmaOrdered By: Celia Griffin on 04-08-2023 Parathyrin.intact [Mass/Vol] 76.6 pg/mL [facility] Parathyroid Hormone Intacton 04-08-2023 Parathyroid Hormone Intact 76.6 pg/mL Normal [facility] Comment on above: Order Comment: Reaso n for Exam Acute kidney injury;Chronic kidney disease, stage 3b;Bilater Result Comment: PERF ORMED BY: [place] [address] PATHOLOGIST [employer]KS AND RECREATION MANAGER OREN OWEN M.D. Performed By: #### V [id number], MANDI, B12, MG, PHOS, CMP, FOL, FE and TIBC, URIC #### [facility] [address] [place] [address] [place] Phosphate [Mass/volume] in S marium or PlasmaOrdered By: Celia Griffin on 04-08-2023 Phosphate [Mass/Vol] 2.8 mg/dL 2.5-4.5 [facility] Phosphoruson 04-08-2023 Phosphate [Mass/Vol] 2.8 mg/dL Normal 2.5-4.5 [facility] Comment on above: Order Comment: Reaso n for Exam Acute kidney injury;Chronic kidney disease, stage 3b;Bilater Performed By: #### V [id number], MANDI, B12, MG, PHOS, CMP, FOL, FE and TIBC, URIC #### [facility] [address] [place] [address] [place] Platelet mean volume Auto (B ld) [Entitic vol]Ordered By: Celia Griffin on 04-08-2023 Platelet mean volume (Bld) [Entitic vol] 8.6 fL 6.6-10.1 [facility] Platelets Auto (Bld) [#/Vol] Ordered By: Celia Griffin on 04-08-2023 Platelets (Bld) [#/Vol] 201 10*3/uL 150-450 [facility] Potassium [Moles/volume] in Serum or PlasmaOrdered By: Celia Griffin on 04-08-2023 Potassium [Moles/Vol] 4.5 mmol/L 3.5-5.1 [facility] Protein Auto test strip (U) [Mass/Vol]Ordered By: Celia Griffin on 04-08-2023 Protein (U) [Mass/Vol] Trace mg/dL Negative [facility] Protein Creat Ratio Ur Rando mon 04-08-2023 Creatinine, Urine (Random) 90.0 mg/dL High 14.0-26.0 [facility] Comment on above: Order Comment: Reaso n for Exam Acute kidney injury;Chronic kidney disease, stage 3b;Bilater Performed By: #### V [id number], MANDI, B12, MG, PHOS, CMP, FOL, FE and TIBC, URIC #### [facility] [address] [place] [address] [place] Protein (U) [Mass/Vol] 30 mg/dL High 0-9 [facility] Comment on above: Order Comment: Reaso n for Exam Acute kidney injury;Chronic kidney disease, stage 3b;Bilater Performed By: #### V [id number], MANDI, B12, MG, PHOS, CMP, FOL, FE and TIBC, URIC #### [facility] [address] Urine Protein/Creatinine Ratio 333 mg/g{Cre} High 0-200 [facility] Comment on above: Order Comment: Reaso n for Exam Acute kidney injury;Chronic kidney disease, stage 3b;Bilater Result Comment: PERF ORMED BY: [place] [address] PATHOLOGIST [employer] RECREATION MANAGER OREN OWEN M.D. Performed By: #### V [id number], MANDI, B12, MG, PHOS, CMP, FOL, FE and TIBC, URIC #### [facility] [address] [place] [address] [place] Protein [Mass/volume] in Ser um or PlasmaOrdered By: Celia Griffin on 04-08-2023 Protein [Mass/Vol] 7.0 g/dL 6.4-8.9 [facility] Protein [Mass/volume] in Uri neOrdered By: Celia Griffin on 04-08-2023 Protein (U) [Mass/Vol] 30 mg/dL 0-9 [facility] RBC Auto (Bld) [#/Vol]Ordere d By: Celia Griffin on 04-08-2023 RBC (Bld) [#/Vol] 5.22 10*6/uL 3.90-5.60 [facility] Serum or plasma albumin/glob ulin mass ratioOrdered By: Celia Griffin on 04-08-2023 Albumin/Globulin [Mass ratio] 1.5 {ratio} [facility] Serum or plasma anion gap de terminationOrdered By: Celia Griffin on 04-08-2023 Anion gap [Moles/Vol] 8.9 mmol/L 6.0-15.0 [facility] Serum or plasma high density lipoprotein (HDL) cholesterol measurementOrdered By: Teo Stokes on 04-08-2023 Cholesterol in HDL [Mass/Vol] 34 mg/dL 23-92 [facility] Comment on above: HDL CHOL ATP-III CLA SSIFICATION Cardiovascular RiskHDL > or equal to 60 mg/dL LOWHDL < 40 mg/dL HIGH Serum or plasma total choles terol/high density lipoprotein (HDL) cholesterol mass ratOrdered By: Teo Stokes on 04-08-2023 Cholesterol.total/Sonya sterol in HDL [Mass ratio] 3.1 {ratio} <5.0 [facility] Sodium [Moles/volume] in Ser um or PlasmaOrdered By: Celia Griffin on 04-08-2023 Sodium [Moles/Vol] 143 mmol/L 136-145 [facility] Specific gravity Auto test s trip (U) [Rel density]Ordered By: Celia Griffin on 04-08-2023 Specific gravity (U) [Rel density] 1.017 1.001-1.03 0 [facility] Squamous epithelial cells de tection in urine sediment by light microscopyOrdered By: Celia Griffin on 04-08-2023 Epithelial cells.squamous LM Ql (Urine sed) 0-1 [HPF] 0-2 [facility] Transferrin [Mass/volume] in Serum or PlasmaOrdered By: Celia Griffin on 04-08-2023 Transferrin [Mass/Vol] 264 mg/dL 203-362 Fi [facility] Triglyceride [Mass/volume] i n Serum or PlasmaOrdered By: Teo Stokes on 04-08-2023 Triglyceride [Mass/Vol] 131 mg/dL 0-149 F [facility] Comment on above: TRIG ATP III CLASSIF ICATIONTRIG less than 150 mg/dL NormalTRIG 150-199 mg/dL Borderline highTRIG 200-500 mg/dL High TRIG greater than 500 mg/dL Very highStandard traceable to the Center for Disease Conrtrol and Prevention (CDC) test method. Urate [Mass/volume] in Serum or PlasmaOrdered By: Celia Griffin on 04-08-2023 Urate [Mass/Vol] 6.0 mg/dL 4.4-7.6 [facility] Urea nitrogen [Mass/volume] in Serum or PlasmaOrdered By: Celia Griffin on 04-08-2023 Urea nitrogen [Mass/Vol] 27 mg/dL 7-25 [facility] Uric Acidon 04-08-2023 Urate [Mass/Vol] 6.0 mg/dL Normal 4.4-7.6 [facility] Comment on above: Order Comment: Reaso n for Exam Acute kidney injury;Chronic kidney disease, stage 3b;Bilater Performed By: #### V [id number], MANDI, B12, MG, PHOS, CMP, FOL, FE and TIBC, URIC #### [facility] [address] Urine Cultureon 04-08-2023 Bacteria identified Cx Nom (U) ORGANISM: Klebsiella oxytoca (O:KLEOXY) [place] Count >100,000 ORGANISM: Morganella morganii (O:MORMOR) [place] Count >100,000 Aerobic RITESH Charge (NMIC56) SUSCEPTIBILITY [...] RESISTANT TO ALL B-LACTAM DRUGS. PERFORMED BY: [address] [place] [address] PATHOLOGIST [employer] RECREATION MANAGER OREN OWEN M.D. Normal [facility] Comment on above: Performed By: #### V [id number], MANDI, B12, MG, PHOS, CMP, FOL, FE and TIBC, URIC #### [facility] [address] Urine bacteria detection by automated methodOrdered By: Ceila Griffin on 04-08-2023 Bacteria Auto Ql (U) 4+ None Seen [facility] Urine clarity by refractomet ry automatedOrdered By: Celia Griffin on 04-08-2023 Clarity Refractometry automated (U) Cloudy Clear [facility] Urine glucose measurement by automated test strip (mass/volume)Ordered By: Celia Griffin on 04-08-2023 Glucose Auto test strip (U) [Mass/Vol] Normal mg/dL Normal [facility] Urine hemoglobin detection b y automated test stripOrdered By: Celia Griffin on 04-08-2023 Hemoglobin Auto test strip Ql (U) 1+ Negative [facility] Urine leukocyte esterase det ection by automated test stripOrdered By: Celia Griffin on 04-08-2023 Leukocyte esterase Auto test strip Ql (U) 4+ Negative [facility] Urine protein/creatinine rat ioOrdered By: Celia Griffin on 04-08-2023 Protein/Creatinine (U) [Ratio] 333 mg/g{Cre} 0-200 [facility] Urobilinogen Auto test strip (U) [Mass/Vol]Ordered By: Celia Griffin on 04-08-2023 Urobilinogen (U) [Mass/Vol] Normal mg/dL Normal [facility] Vitamin B12on 04-08-2023 Cobalamin (Vitamin B12) [Mass/Vol] 301 pg/mL Normal 180-914 [facility] Comment on above: Order Comment: Reaso n for Exam Acute kidney injury;Chronic kidney disease, stage 3b;Bilater Performed By: #### V [id number], MANDI, B12, MG, PHOS, CMP, FOL, FE and TIBC, URIC #### [facility] [address] [place] [id number] [facility] Vitamin B12 ser/plasOrdered By: Celia Griffin on 04-08-2023 Cobalamin (Vitamin B12) [Mass/Vol] 301 pg/mL 180-914 [facility] Vitamin D 25 Hydroxy Totalon 04-08-2023 Vitamin D 25 Hydroxy Total 37.5 ng/mL Normal 30-100 [facility] Comment on above: Order Comment: Reaso n for Exam Acute kidney injury;Chronic kidney disease, stage 3b;Bilater Result Comment: [place] MIN D STATUS 25([place])VITAMIN D RANGE (ng/mL) Deficient <20 Insufficient 20 to <30 Sufficient 30 to 100 Reference: Federico Coleman, Palomo LESLIE, et al. Evaluation,treatment, and prevention of vitamin D deficiency; an Endocrine Society clinical practice guideline. JCEM. 2010; 96(7):191-. PERFORMED BY: [place] [address] PATHOLOGIST [employer] AND RECREATION MANAGER OREN OWEN M.D. Performed By: #### V [id number], MANDI, B12, MG, PHOS, CMP, FOL, FE and TIBC, URIC #### [address] Vitamin D+Metabolites [Mass/ volume] in Serum or PlasmaOrdered By: Celia Griffin on 04-08-2023 Vitamin D+Metabolites [Mass/Vol] 37.5 ng/mL 30-100 [facility] Comment on above: VITAMIN D STATUS 25( [place])VITAMIN D RANGE (ng/mL) Deficient <20 Insufficient 20 to <30Sufficient 30 to 100Reference: Federico Coleman, Palomo LESLIE, et al. Evaluation,treatment, and prevention of vitamin D deficiency; an Endocrine Society clinical practice guideline. JCEM. 2010; 96(7):1911-. pH Auto test strip (U)Ordere d By: Celia Griffin on 04-08-2023 pH (U) 7.0 [pH] 5.0-9.0 [facility] UroVysion Fish and Urine Cyt o ([facility])on 03-18-2023 [facility] Diagnosis Info Invalid Interpretation Code [facility] Comment on above: Result Comment: A:Ur [...] correlated with cytology and cystoscopy results.* CPT 45637, 20099. 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 Electronically signed by : on: 03/18/2023 13:35:55 Performed By: #### 1 [id number] #### [facility] [address] [place] [address] Consent for Procedure/Surger yon 03-12-2023 Consent for Procedure/Surgery [id number] Normal [facility] Ambulatory Visit Summaryon 1 Ambulatory Visit Summary ALEX ANDERSON :1945 Visit Date:03/11/2023 Ambulatory Visit Instructions Your Diagnosis History of bladder cancer Urinary retention BPH with urinary obstruction Dementia Your Care Team Attending Physician - ARLENE CASILLAS, Katia Hall Primary Care Physician - IDNAIA CASILLAS, STANLEY Rich This Is Your Medications [...] Where: [facility] [address], [place] [address]- Medications What How Much When Instructions Unchanged [...] kidney and (more content not included)... Normal [facility] Patient Educationon 10-17-20 23 Patient Education Urology Transurethral Resection of [...] including vitamins, herbs, eye drops, creams, and vjsi-znx-smeoxmq medicines. ? Any problems you or family [...] tells you to take them. ? Taking tyah-zjp-rgfytue medicines, vitamins, herbs, and supplements. Surgery safety [...] health care (more content not included)... Normal [facility] UroVysion Fish and Urine Cyt o ([facility])on 03-11-2023 [facility] Method of Extraction Bladder Urine Normal [facility] Comment on above: Performed By: #### 1 [id number] #### [facility] [address] [place] [address] [facility] Number of Jars 1 Invalid Interpretation Code [facility] Comment on above: Performed By: #### 1 [id number] #### [facility] [address] [place] [address] [facility] Specimen Bladder Wash Normal [facility] Comment on above: Performed By: #### 1 [id number] #### [facility] [address] [place] [address] [facility] Type of Service Technical Only Normal [facility] Comment on above: Performed By: #### 1 [id number] #### [facility] [address] [place] [address] Urology Office/Clinic Noteon 03-11-2023 Urology Office/Clinic Note [...] Retention of urine, unspecified) Pt presented to [facility] ER on 09/15/22 due to catheter [...] [facility] [address], [place] [address]- Additional Instructions: Sched cysto/FISH/Cytol/BT check Patient Education Benign Prostatic Hyperplasia I, Dalila Lala , personally scribed for Dr. Samuels on 03/11/2023 14:20:53. Electronically signed by emma Lala on (more content not included)... Normal [facility] Comment on above: Result Comment: Elec [...] Lipid Panel; Status:Active - Retrospective Authorization; Requested for:[id number]; Overweight with body mass index (BMI) of [...] we can help. You may also call 6-034-YRPREvident SoftwareNOW for free resources and assistance.; Status:Complete - [...] negative for complaint. Vitals Vital Signs Recorded: [id number] 09:57AM Heart Rate72, L Radial Koldbkch482, LUE, Sitting Ldiifausk22, LUE, Sitting Height6 ft 2 in Gljqbz319 lb BMI Rnvtudhrid46.35 kg/m2 BSA Calculat (more content not included)... Normal [facility] Tobacco Screening.on 023 Fall risk assessment a) No falls within the last year formerly [facility]-[employer] sushil 250 DO Work Phone: Tobacco use status CPHS a) Yes [facility]u sushil 250 DO Work Phone: Tobacco Screening. Yes [facility] [employer] sushil 250 DO Work Phone: IntraOperative Documentson 0 01-13-2023 IntraOper[facility] Documents [id number]#1.00CD:127 Normal [facility] Consent for Procedure/Surger yon 01-07-2023 Consent for Procedure/Surgery [id number]#1.00CD:127 Normal [facility] IntraOperative Documentson 0 01-07-2023 Intra[facility] Documents [id number]#1.00CD:127 Normal [facility] Consent for Treatmenton Consent for Treatment [id number]#1.00CD:127 Normal [facility] UroVysion Fish and Urine Cyt o ([facility])on 12-17-2022 [facility] Diagnosis Info Invalid Interpretation Code [facility] Comment on above: Result Comment: A:Ur [...] correlated with cytology and cystoscopy results.* CPT 75684, 70663. Microscopic Notes - Microscopic Notes - Abnormal cells 9p21 deletions: Abnormal cells aneploid events: Total cells analyzed: 101 Hematuria: Gross Description Site ID:A color No Color fixative Alcohol Received 60 mls of clear no color fluid with the patient's name and, Urine on the vial. Electronically signed by : on: 12/17/2022 09:12:29 Performed By: #### 1 [id number] ####[facility] [address] [place] [address] Urology Office/Clinic Noteon 12-16-2022 Urology Office/Clinic Note [...] Retention of urine, unspecified) Pt presented to [facility] ER on 09/15/22 due to catheter [...] When Contact Information ARLENE CASILLAS, Katia Hall, [facility] [address], [place] [address]- Additional Instructions: Follow up after urodynamics for [...] emphysema Dem (more content not included)... Normal [facility] Comment on above: Result Comment: Elec tronically Signed By: Dana Rivas\.br\Date and Time Signed: 12/16/22 11:30 EDT Consent for Procedure/Surger yon 12-11-2022 Consent for Procedure/Surgery [id number]:127 Normal [facility] Ambulatory Visit Summaryon 0 12-10-2022 Ambulatory [...] Up with ARLENE CASILLAS, ADRIA Sterling When: Where: [facility] [address], [place] [address]- Medications What How Much When Instructions Unchanged [...] with r (more content not included)... Normal [facility] Patient Educationon 12-11-19 Patient Education Oncology [...] if anything looks unusual. Men with a ngwkfw-eszb-nwdjnf risk for skin cancer may want to see a shank skinner (boat builder) for an annual body check. What are the benefits of screening? Cancer screening is done to look for cancer in the very early stages, before it spreads and becomes harder to treat and before you would start to notice symptoms. Finding cancer early improves the chances of successful treatment. It ma (more content not included)... Normal [facility] UroVysion Fish and Urine Cyt o ([facility])on 12-10-2022 [facility] Method of Extraction Bladder Wash Normal [facility] Comment on above: Performed By: #### 1 [id number] ####[facility] [address] [place] [address] [facility] Number of Jars 1 Invalid Interpretation Code [facility] Comment on above: Performed By: #### 1 [id number] ####[facility] [address] [place] [address] [facility] Specimen Urine Normal [facility] Comment on above: Performed By: #### 1 [id number] ####[facility] [address] [place] [address] [facility] Type of Service Technical Only Normal [facility] Comment on above: Performed By: #### 1 [id number] ####[facility] [address] [place] [address] Urology Office/Clinic Noteon 09-19-2022 Urology Office/Clinic Note [...] urothelial carcinoma, low grade. Pt presented to [facility] ER on 09/15/22 due to catheter [...] order Local anesthesia. Prophy abx sent to [facility]. 2. 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 Pt presented to [facility] ER on 09/15/22 due to catheter [...] of hearing. Follow-up With When Contact Information SAMUELS MD, Katia Hall, URL [facility] [address], [place] [address]- Additional Instructions: schedule urocuff, 3 mos cysto/bt [...] bladder tumor ( (more content not included)... Normal [facility] Comment on above: Result Comment: Elec [...] 10:00 AM EDT Where: [facility] Normal [facility] CULTURE URINEon 09-18-2022 CULTURE URINE Isolate 1 Pseudomonas aeruginosa >100,000 cfu/mL of ORGANISM 1 Pseudomonas aeruginosa ANTIBIOTIC M.I.C RX STATUS Piperacillin/Tazobactam <=4 S F Ceftazidime <=1 S F Imipenem 2 S F Amikacin <=2 S F Gentamicin 2 S F Tobramycin <=1 S F Ciprofloxacin <=0.25 S F Levofloxacin <=0.12 S F Normal [facility] Comment on above: Performed By: #### U RTPCR #### [facility] [address] [address] [address] Karen Pierce Patient Educationon 09-19-19 23 [...] Follow these instructions at home: ? Take beik-lou-cayrwjd and prescription medicines only as told by [...] important. Where to find more information ? [place] [employer] (ACS): cancer.org ? [employer] [place] (NCI): cancer.gov Contact a health care provider [...] have wi (more content not included)... Normal [facility] CALCULI, URINARYon 3 2,8 Dihydroxyadenine Normal [facility] Comment on above: Performed By: #### U A #### [facility] [address] [place] [address] Dr. Karen Pierce Ammonium Acid Urate Normal [facility] Comment on above: Performed By: #### U A #### [facility] [address] [address] [address] Karen Pierce Bilirubin Ql (U) Normal [facility] Comment on above: Performed By: #### U A #### [facility] [address] [address] [address] Karen Pierce Ca Oxalate Dihydrate Normal [facility] Comment on above: Performed By: #### U A #### [facility] [address] [address] [address] Karen Pierce CaHPO4 (Brushite) Normal [facility] Comment on above: Performed By: #### U A #### [facility] [address] [address] [address] Karen Pierce Calcium Bilirubinate Normal [facility] Comment on above: Performed By: #### U A #### [facility] [address] [address] [address] Karen Pierce Calcium Carbonate [facility] Comment on above: Performed By: #### U A #### [facility] [address] [address] [address] Karen Pierce Calcium Oxalate Monohydrate 100 % [facility] Comment on above: Performed By: #### U A #### [facility] [address] [address] [address] Karen Pierce Calcium Palmitate [facility] Comment on above: Performed By: #### U A #### [facility] [address] [address] [address] Karen Pierce Calcium Phosphate [facility] Comment on above: Performed By: #### U A #### [facility] [address] [place] [address] Dr. Karen Pierce Calcium Stearate [facility] Comment on above: Performed By: #### U A #### [facility] [address] [address] [address] Karen Pierce Carbonate Apatite [facility] Comment on above: Performed By: #### U A #### [facility] [address] [address] [address] Karen Pierce Cellular Material [facility] Comment on above: Performed By: #### U A #### [facility] [address] [address] [address] Karen Pierce Cholesterol [facility] Comment on above: Performed By: #### U A #### [facility] [address] [place] [address] Dr. Karen Pierce Color (U) Brown Normal [facility] Comment on above: Performed By: #### U A #### [facility] [address] [address] [address] Karen Pierce Comment [facility] Comment on above: Performed By: #### U A #### [facility] [address] [address] [address] Karen Pierce Comment: Comment Normal [facility] Comment on above: Result Comment: Phys ician questions regarding Calculi Analysis contact [employer] at: [phone]. Performed By: #### U A #### [facility] [address] [place] [address] Dr. Karen Pierce Composition Comment Normal [facility] Comment on above: Result Comment: Perc entage (Represents the % composition) Performed By: #### U A #### [facility] [address] [place] [address] Dr. Karen Pierce Cystine Normal [facility] Comment on above: Performed By: #### U A #### [facility] [facility] [address] [address] [address] Karen Pierce Disclaimer: Comment Normal [facility] Comment on above: Result Comment: This test was developed and its performance characteristics determined by [facility]. It has not been cleared or approved by the Food and Drug Administration. Performed By: #### U A #### [facility] [address] [place] [address] Dr. Karen Pierce Dried Blood Normal [facility] Comment on above: Performed By: #### U A #### [facility] [address] [place] [address] Dr. Karen Pierce Drug or Metabolite Normal [facility] Comment on above: Performed By: #### U A #### [facility] [address] [place] [address] Dr. Karen Pierce Hydroxyapatite [facility] Comment on above: Performed By: #### U A #### [facility] [address] [place] [address] Dr. Karen Pierce Mg NH4 PO4 (Struvite) [facility] Comment on above: Performed By: #### U A #### [facility] [address] [place] [address] Dr. Karen Pierce MgHPO4 (Newberyite) [facility] Comment on above: Performed By: #### U A #### [facility] [address] [place] [address] Dr. Karen Pierce Other component(s) Normal [facility] Comment on above: Performed By: #### U A #### [facility] [address] [address] [address] Karen Pierce PDF . Normal [facility] Comment on above: Performed By: #### U A #### [facility] [address] [address] [address] Karen Pierce Photo Comment Normal [facility] Comment on above: Result Comment: Phot ograph will follow under a separate cover Performed By: #### U A #### [facility] [address] [address] [address] Karen Pierce Please note: Comment Normal [facility] Comment on above: Result Comment: Calc shirley report will follow via computer, mail or supervisor sawing and assembly delivery. Performed By: #### U A #### [facility] [address] [address] [address] Karen Pierce Size 5x5 [facility] Comment on above: Result Comment: Mult iple pieces received. Dimensions of the largest piece reported. Performed By: #### U A #### [facility] [address] [address] [address] Kraen Pierce Sodium Acid Urate Normal [facility] Comment on above: Performed By: #### U A #### [facility] [address] [address] [address] Karen Pierce Source Comment [facility] Comment on above: Result Comment: Urin evelin Bladder Performed By: #### U A #### [facility] [address] [address] [address] Karen Pierce Triamterene [facility] Comment on above: Performed By: #### U A #### [facility] [address] [address] [address] Karen Pierce Uric Acid [facility] Comment on above: Performed By: #### U A #### [facility] [address] [place] [address] Dr. Karen Pierce Uric Acid Dihydrate [facility] Comment on above: Performed By: #### U A #### [facility] [address] [address] [address] Karen Pierce Weight 158 mg Normal [facility] Comment on above: Performed By: #### U A #### [facility] [address] [address] [address] Karen Pierce Xanthine Normal [facility] Comment on above: Performed By: #### U A #### [facility] [address] [place] [address] Dr. Karen Pierce ER URINE PROFILEon 3 Bilirubin Ql (U) Negative Normal NEGATIVE [facility] Comment on above: Performed By: #### U MICRO, ERUR #### [facility] [address] [place] [address] Dr. Karen Pierce Clarity (U) CLEAR Normal CLEAR [facility] Comment on above: Performed By: #### U MICRO, ERUR #### [facility] [address] [place] [address] Dr. Karen Pierce Color (U) YELLOW Normal YELLOW [facility] Comment on above: Performed By: #### U MICRO, ERUR #### [facility] [address] [place] [address] Dr. Karen Pierce ERUAHD A micrscopic examina tion will be performed if indicated. Normal [facility] Comment on above: Performed By: #### U MICRO, ERUR #### [facility] [address] [place] [address] Dr. Karen Pierce Glucose Ql (U) Negative Normal NEGATIVE [facility] Comment on above: Performed By: #### U MICRO, ERUR #### [facility] [address] [place] [address] Dr. Karen Pierce Hemoglobin Ql (U) LARGE Abnormal NEGATIVE [facility] Comment on above: Performed By: #### U MICRO, ERUR #### [facility] [address] [place] [address] Dr. Karen Pierce Ketones Ql (U) Negative Normal NEGATIVE [facility] Comment on above: Performed By: #### U MICRO, ERUR #### [facility] [address] [place] [address] Dr. Karen Pierce LEUKOCYTES LARGE Abnormal NEGATIVE [facility] Comment on above: Performed By: #### U MICRO, ERUR #### [facility] [address] [address] [address] Karen Pierce Nitrite Ql (U) Positive Abnormal NEGATIVE [facility] Comment on above: Performed By: #### U MICRO, ERUR #### [facility] [address] [address] [address] Karen Pierce pH (U) 5.5 [pH] Normal 5-9 [facility] Comment on above: Performed By: #### U MICRO, ERUR #### [facility] [address] [address] [address] Karen Pierce Protein (U) [Mass/Vol] 100 mg/dL Abnormal NEGAT RAJI/ TRACE [facility] Comment on above: Performed By: #### U MICRO, ERUR #### [facility] [address] [place] [address] Dr. Karen Pierce SPEC GRAVITY 1.020 Normal 1.005-<=1. 025 [facility] Comment on above: Performed By: #### U MICRO, ERUR #### [facility] [address] [place] [address] Dr. Karen Pierce UR MICRO IND INDICATED Normal [facility] Comment on above: Performed By: #### U MICRO, ERUR #### [facility] [address] [place] [address] Dr. Karen Pierce Urobilinogen Qn (U) 1.0 {Tonio'U}/dL Normal 0.2 - 1. 0 [facility] Comment on above: Performed By: #### U MICRO, ERUR #### [facility] [address] [place] [address] Dr. Karen Pierce URINE MICROSCOPIC ONLYon BACTERIA SMALL Abnormal NONE SEEN [facility] Comment on above: Performed By: #### U MICRO, ERUR #### [facility] [address] [place] [address] Dr. Karen Pierce Bacteria identified Cx Nom (U) INDICATED Normal [facility] Comment on above: Performed By: #### U MICRO, ERUR #### [facility] [address] [place] [address] Dr. Karen Pierce CAST NONE SEEN Normal NONE SEEN [facility] Comment on above: Performed By: #### U MICRO, ERUR #### [facility] [address] [place] [address] Dr. Karen Pierce Crystals LM Nom (Urine sed) NONE SEEN Normal NONE SEEN [facility] Comment on above: Performed By: #### U MICRO, ERUR #### [facility] [address] [place] [address] Dr. Karen Pierce Epithelial cells LM Ql (Urine sed) NONE SEEN Normal NONE SEEN /RARE [facility] Comment on above: Performed By: #### U MICRO, ERUR #### [facility] [address] [place] [address] Dr. Karen Pierce MUCOUS NONE SEEN Normal NONE SEEN [facility] Comment on above: Performed By: #### U MICRO, ERUR #### [facility] [address] [place] [address] Dr. Karen Pierce RBC (U) [#/Vol] /uL Abnormal 0-2 [facility] Comment on above: Performed By: #### U MICRO, ERUR #### [facility] [address] [place] [address] Dr. Karen Pierce WBC 50-75 Abnormal NONE SEEN [facility] Comment on above: Performed By: #### U MICRO, ERUR #### [facility] [address] [place] [address] Dr. Karen Pierce PTH INTACTon 09-05-2022 PTH, Intact 38 pg/mL Normal 15-65 [facility] Comment on above: Performed By: #### P THINT #### [facility] [address] [place] [address] Dr. Karen Pierce FERRITINon 09-04-2022 Ferritin [Mass/Vol] 49.0 ng/mL Normal 26.0-388.0 [facility] Comment on above: Performed By: #### U RTPCR #### [facility] [address] [place] [address] Dr. Karen Pierce IRON AND TIBCon 09-04-2022 % SATURATION 10.3 % Normal [facility] Comment on above: Performed By: #### U RTPCR #### [facility] [address] [place] [address] Dr. Karen Pierce Iron [Mass/Vol] 33.0 ug/dL Critically low 65.0-175.0 [facility] Comment on above: Performed By: #### U RTPCR #### [facility] [address] [place] [address] Dr. Karen Pierce TIBC DIRECT 319.0 ug/dL Normal 250.0-450. 0 [facility] Comment on above: Performed By: #### U RTPCR #### [facility] [address] [place] [address] Dr. Karen Pierce UA RANDOMon 09-04-2022 Bilirubin Ql (U) Negative Normal NEGATIVE [facility] Comment on above: Performed By: #### U A #### [facility] [address] [place] [address] Dr. Karen Pierce Clarity (U) CLEAR Normal CLEAR [facility] Comment on above: Performed By: #### U A #### [facility] [address] [place] [address] Dr. Karen Pierce Color (U) LT. YELLOW Normal YELLOW [facility] Comment on above: Performed By: #### U A #### [facility] [address] [place] [address] Dr. Karen Pierce Glucose Ql (U) Negative Normal NEGATIVE [facility] Comment on above: Performed By: #### U A #### [facility] [address] [place] [address] Dr. Karen Pierce Hemoglobin Ql (U) MODERATE Abnormal NEGATIVE [facility] Comment on above: Performed By: #### U A #### [facility] [address] [place] [address] Dr. Karen Pierce Ketones Ql (U) Negative Normal NEGATIVE [facility] Comment on above: Performed By: #### U A #### [facility] [address] [place] [address] Dr. Karen Pierce LEUKOCYTES LARGE Abnormal NEGATIVE [facility] Comment on above: Performed By: #### U A #### [facility] [address] [place] [address] Dr. Karen Pierce Nitrite Ql (U) Positive Abnormal NEGATIVE [facility] Comment on above: Performed By: #### U A #### [facility] [address] [place] [address] Dr. Karen Pierce pH (U) 6.5 [pH] Normal 5-9 [facility] Comment on above: Performed By: #### U A #### [facility] [address] [place] [address] Dr. Karen Pierce SPEC GRAVITY 1.015 Normal 1.005-<=1. 025 [facility] Comment on above: Performed By: #### U A #### [facility] [address] [place] [address] Dr. Karen Pierce UA PROTEIN 30 mg/dl Abnormal NEGATIVE/ TRACE [facility] Comment on above: Performed By: #### U A #### [facility] [address] [place] [address] Dr. Karen Pierce Urobilinogen Qn (U) 0.2 {Tonio'U}/dL Normal 0.2 - 1. 0 [facility] Comment on above: Performed By: #### U A #### [facility] [address] [place] [address] Dr. Karen Pierce URINE T PROTEIN CREAT RATIOo n 09-04-2022 Protein (U) [Mass/Vol] 65.2 mg/dL Critically high <=12.0 [facility] Comment on above: Performed By: #### U RTPCR #### [facility] [address] [place] [address] Dr. Karen Pierce UR PROT CREAT RAT 0.76 Normal [facility] Comment on above: Performed By: #### U RTPCR #### [facility] [address] [place] [address] Dr. Karen Pierce URINE CREAT 85.95 mg/dL Normal 20.00-300. 00 [facility] Comment on above: Performed By: #### U RTPCR #### [facility] [address] [place] [address] Dr. Karen Pierce VIT B12 AND FOLATEon 023 Cobalamin (Vitamin B12) [Mass/Vol] 279.0 pg/mL Normal 193.0-986. 0 [facility] Comment on above: Performed By: #### U RTPCR #### [facility] [address] [place] [address] Dr. Karen Pierce FOLATE 17.80 ng/mL Normal 8.60-58.90 [facility] Comment on above: Performed By: #### U RTPCR #### [facility] [address] [place] [address] Dr. Karen Pierce VITAMIN D 25 OHon 09-04-2022 VIT D 25-OH 29.9 ng/mL Normal [facility] Comment on above: Performed By: #### U RTPCR #### [facility] [address] [place] [address] Dr. Karen Pierce VIT D RANGES SEE BELOW Normal [facility] Comment on above: Result Comment: <20 ng/mL Vit D deficient 20 - <30 ng/mL Vit D insufficient 30 - 100 ng/mL Vit D sufficient >100 ng/mL Potential Toxicity Performed By: #### U RTPCR #### [facility] [address] [place] [address] Dr. Karen Pierce CBC AUTO DIFFon 09-02-2022 BASO # 0.1 103/ul Normal 0.0-0.1 [facility] Comment on above: Performed By: #### C BC #### [facility] [address] [place] [address] Dr. Karen Pierce Basophils/100 WBC (Bld) 0.7 % Normal 0.2-2.0 [facility] Comment on above: Performed By: #### C BC #### [facility] [address] [place] [address] Dr. Karen Pierce EO # 0.2 103/ul Normal 0.0-0.7 [facility] Comment on above: Performed By: #### C BC #### [facility] [address] [place] [address] Dr. Karen Pierce Eosinophils/100 WBC (Bld) 2.6 % Normal 0.9-7.0 [facility] Comment on above: Performed By: #### C BC #### [facility] [address] [place] [address] Dr. Karen Pierce Erythrocyte distribution width (RBC) [Ratio] 13.8 % Normal 11.0-15.0 [facility] Comment on above: Performed By: #### C BC #### [facility] [address] [place] [address] Dr. Karen Pierce Hematocrit (Bld) [Volume fraction] 38.9 % Critically low 42.0-54.0 [facility] Comment on above: Performed By: #### C BC #### [facility] [address] [place] [address] Dr. Karen Pierce Hemoglobin (Bld) [Mass/Vol] 12.3 g/dL Critically low 14.0-18.0 [facility] Comment on above: Performed By: #### C BC #### [facility] [address] [place] [address] Dr. Karen Pierce IG # 0.01 10e3/ul Normal 0.00-0.03 [facility] Comment on above: Performed By: #### C BC #### [facility] [address] [place] [address] Dr. Karen Pierce IG % 0.1 % Normal 0.0-0.5 [facility] Comment on above: Performed By: #### C BC #### [facility] [address] [place] [address] Dr. Karen Pierce LYMPH # 1.9 103/ul Normal 1.2-3.8 [facility] Comment on above: Performed By: #### C BC #### [facility] [address] [place] [address] Dr. Karen Pierce Lymphocytes/100 WBC (Bld) 27.0 % Normal 20.5-60.0 [facility] Comment on above: Performed By: #### C BC #### [facility] [address] [place] [address] Dr. Karen Pierce MANUAL DIFF REQ NO Normal [facility] Comment on above: Performed By: #### C BC #### [facility] [address] [place] [address] Dr. Karen Pierce MCH (RBC) [Entitic mass] 27.8 pg Normal 25.9-34.0 [facility] Comment on above: Performed By: #### C BC #### [facility] [address] [place] [address] Dr. Karen Pierce MCHC (RBC) [Mass/Vol] 31.6 g/dL Normal 29.9-35.2 [facility] Comment on above: Performed By: #### C BC #### [facility] [address] [place] [address] Dr. Karen Pierce MCV (RBC) [Entitic vol] 87.8 fL Normal 80.0-94.0 [facility] Comment on above: Performed By: #### C BC #### [facility] [address] [place] [address] Dr. Karen Pierce MONO # 0.6 103/ul Normal 0.3-0.8 [facility] Comment on above: Performed By: #### C BC #### [facility] [address] [place] [address] Dr. Karen Pierce Monocytes/100 WBC (Bld) 8.8 % Normal 1.7-12.0 [facility] Comment on above: Performed By: #### C BC #### [facility] [address] [place] [address] Dr. Karen Pierce NEUT # 4.4 103/ul Normal 1.4-6.5 [facility] Comment on above: Performed By: #### C BC #### [facility] [address] [place] [address] Dr. Karen Pierce Neutrophils/100 WBC (Bld) 60.8 % Normal 43.0-75.0 [facility] Comment on above: Performed By: #### C BC #### [facility] [address] [place] [address] Dr. Karen Pierce Platelet mean volume (Bld) [Entitic vol] 9.9 fL Normal 9.5-13.5 [facility] Comment on above: Performed By: #### C BC #### [facility] [address] [place] [address] Dr. Karen Pierce PLT 181 103/ul Normal 150-450 [facility] Comment on above: Performed By: #### C BC #### [facility] [address] [place] [address] Dr. Karen Pierce RBC 4.43 106/ul Critically low 4.70-6.10 [facility] Comment on above: Performed By: #### C BC #### [facility] [address] [place] [address] Dr. Karen Pierce WBC 7.2 103/ul Normal 4.0-11.0 [facility] Comment on above: Performed By: #### C BC #### [facility] [address] [place] [address] Dr. Karen Pierce MAGNESIUMon 09-02-2022 Magnesium [Mass/Vol] 2.2 mg/dL Normal 1.8-2.4 [facility] Comment on above: Performed By: #### U A #### [facility] [address] [place] [address] Dr. Karen Pierce PHOSPHORUSon 09-02-2022 Phosphate [Mass/Vol] 2.9 mg/dL Normal 2.6-4.7 [facility] Comment on above: Performed By: #### U A #### [facility] [address] [place] [address] Dr. Karen Pierce PROF 14(COMP METB)on 023 Albumin [Mass/Vol] 3.5 g/dL Normal 3.4-5.0 [facility] Comment on above: Performed By: #### P THINT #### [facility] [address] [place] [address] Dr. Karen Pierce Albumin/Globulin [Mass ratio] 1.0 {ratio} Normal [facility] Comment on above: Performed By: #### P THINT #### [facility] [address] [address] [address] Karen Pierce ALP [Catalytic activity/Vol] 86 U/L Normal 46-116 [facility] Comment on above: Performed By: #### P THINT #### [facility] [address] [address] [address] Karen Pierce ALT [Catalytic activity/Vol] 17 U/L Normal 16-63 [facility] Comment on above: Performed By: #### P THINT #### [facility] [address] [address] [address] Karen Pierce Anion gap [Moles/Vol] 13.0 mmol/L Normal Th [facility] Comment on above: Performed By: #### P THINT #### [facility] [address] [address] [address] Karen Pierce AST [Catalytic activity/Vol] 14 U/L Critically low 15-37 [facility] Comment on above: Performed By: #### P THINT #### [facility] [address] [address] [address] Karen Pierce Bilirubin [Mass/Vol] 0.3 mg/dL Normal 0.2-1.0 [facility] Comment on above: Performed By: #### P THINT #### [facility] [address] [address] [address] Karen Pierce CO2 [Moles/Vol] 27.6 mmol/L Normal 21.0-32.0 [facility] Comment on above: Performed By: #### P THINT #### [facility] [address] [address] [address] Karen Pierce Creatinine [Mass/Vol] 1.48 mg/dL Critically high 0.70-1.30 [facility] Comment on above: Performed By: #### P THINT #### [facility] [address] [address] [address] Karen Pierce EGFR-AF MALAWIAN 56 mL/min/1.73m2 Critically low >=60 [facility] Comment on above: Performed By: #### P THINT #### [facility] [address] [address] [address] Karen Pierce EGFR-NON AF MALAWIAN 46 mL/min/1.73m2 Critically low >=60 [facility] Comment on above: Performed By: #### P THINT #### [facility] [address] [address] [address] Karen Pierce Globulin (S) [Mass/Vol] 3.6 g/dL Normal [facility] Comment on above: Performed By: #### P THINT #### [facility] [address] [address] [address] Karen Pierce Glucose [Mass/Vol] 105 mg/dL Normal 74-106 [facility] Comment on above: Performed By: #### P THINT #### [facility] [address] [address] [address] Karen Pierce Protein [Mass/Vol] 7.1 g/dL Normal 6.4-8.2 [facility] Comment on above: Performed By: #### P THINT #### [facility] [address] [address] [address] Karen Pierce Sodium [Moles/Vol] 142 mmol/L Normal 136-145 [facility] Comment on above: Performed By: #### P THINT #### [facility] [address] [address] [address] Karen Pierce Urea nitrogen/Creatinine [Mass ratio] 16.2 mg/mg Normal [facility] Comment on above: Performed By: #### P THINT #### [facility] [address] [address] [address] Karen Pierce PROF CHEM 8 (BAS METB)on Anion gap [Moles/Vol] 11.1 mmol/L Normal [facility] Comment on above: Performed By: #### U A #### [facility] [address] [address] [address] Karen Pierce Calcium [Mass/Vol] 8.7 mg/dL Normal 8.5-10.1 [facility] Comment on above: Performed By: #### U A #### [facility] [address] [place] [address] Dr. Karen Pierce Performed By: #### P THINT #### [facility] [address] [place] [address] Dr. Karen Pierce Chloride [Moles/Vol] 106 mmol/L Normal 98-107 [facility] Comment on above: Performed By: #### U A #### [facility] [address] [place] [address] Dr. Karen Pierce Performed By: #### P THINT #### [facility] [address] [place] [address] Dr. Karen Pierce CO2 [Moles/Vol] 28.5 mmol/L Normal 21.0-32.0 [facility] Comment on above: Performed By: #### U A #### [facility] [address] [place] [address] Dr. Karen Pierce Creatinine [Mass/Vol] 1.44 mg/dL Critically high 0.70-1.30 [facility] Comment on above: Performed By: #### U A #### [facility] [address] [place] [address] Dr. Karen Pierce EGFR-AF MALAWIAN 58 mL/min/1.73m2 Critically low >=60 [facility] Comment on above: Performed By: #### U A #### [facility] [address] [place] [address] Dr. Karen Pierce EGFR-NON AF MALAWIAN 47 mL/min/1.73m2 Critically low >=60 [facility] Comment on above: Performed By: #### U A #### [facility] [address] [place] [address] Dr. Karen Pierce Glucose [Mass/Vol] 104 mg/dL Normal 74-106 [facility] Comment on above: Performed By: #### U A #### [facility] [address] [place] [address] Dr. Karen Pierce Potassium [Moles/Vol] 4.6 mmol/L Normal 3.5-5.1 [facility] Comment on above: Performed By: #### U A #### [facility] [address] [place] [address] Dr. Karen Pierce Performed By: #### P THINT #### [facility] [address] [place] [address] Dr. Karen Pierce Sodium [Moles/Vol] 141 mmol/L Normal 136-145 [facility] Comment on above: Performed By: #### U A #### [facility] [address] [place] [address] Dr. Karen Pierce Urea nitrogen [Mass/Vol] 24.0 mg/dL Critically high 7.0-18.0 [facility] Comment on above: Performed By: #### U A #### [facility] [address] [place] [address] Dr. Karen Pierce Performed By: #### P THINT #### [facility] [address] [place] [address] Dr. Karen Pierce Urea nitrogen/Creatinine [Mass ratio] 16.7 mg/mg Normal [facility] Comment on above: Performed By: #### U A #### [facility] [address] [place] [address] Dr. Karen Pierce PROTIMEon 09-02-2022 INR Coag (PPP) [Relative time] 1.01 {INR} Normal [facility] Comment on above: Performed By: #### P TT, PT #### [facility] [address] [place] [address] Dr. Karen Pierce INR GUIDELINES SEE BELOW Normal [facility] Comment on above: Result Comment: EMY RED INR: 2.0 - 3.0 CONDITIONS NOT LISTED BELOW 2.5 - 3.5 FOR PROSTHETIC HEART VALVE REPLACEMENT 2.5 - 3.5 RECURRENT THROMBOSIS Performed By: #### P TT, PT #### [facility] [address] [place] [address] Dr. Karen Pierce PT Coag (PPP) [Time] 10.7 s Normal 9.0-11.6 [facility] Comment on above: Performed By: #### P TT, PT #### [facility] [address] [place] [address] Dr. Karen Pierce PTTon 09-02-2022 aPTT Coag (Bld) [Time] 28.2 s Normal 22.3-36.2 Th e [facility] Comment on above: Performed By: #### P TT, PT #### [facility] [address] [address] [address] Karen Pierce URIC ACID SERUMon 09-02-2022 Urate [Mass/Vol] 4.8 mg/dL Normal 3.5-7.2 [facility] Comment on above: Performed By: #### P THINT #### [facility] [address] [address] [address] Karen Pierce Creatinine (Bld) [Mass/Vol]O rdered By: Margarito Valentine on 08-16-2022 Creatinine [Mass/Vol] 1.5 mg/dL 0.6-1.3 [facility] Comment on above: ER/ESD physician is notified/shown all ISTAT results.Critical values may be confirmed by laboratory testing ifdeemed necessary by ER attending doctor. Creatinine (Bld) [Mass/Vol]O rdered By: Heather Schwab on 07-24-2022 Creatinine [Mass/Vol] 1.6 mg/dL 0.6-1.3 [facility] Comment on above: ER/ESD physician is notified/shown all ISTAT results.Critical values may be confirmed by laboratory testing ifdeemed necessary by ER attending doctor. No Panel InformationOrdered By: Heather Schwab on 07-24-2022 POC Estimated GFR 51 [facility] Comment on above: GFR estimated refere nce range: According to KDOQI guidelines, <60 ml/min/1.73m2 is sufficient to diagnose a patient with chronic kidney disease. POC Estimated GFR Non- Amer 42 [facility] Blood activated clotting lacho e by coagulation assayOrdered By: Margarito Valentine on 07-02-2022 ACT Coag (Bld) 215 s 90-139 [facility] Comment on above: Reference Range: 90- 139 (Non-heparinized) Basophils Auto (Bld) [#/Vol] Ordered By: Margarito Valentine on 01-27-2023 Basophils (Bld) [#/Vol] 0.1 10*3/uL 0.0-0.2 [facility] Basophils/100 WBC Auto (Bld) Ordered By: Margarito Valentine on 06-21-2022 Basophils/100 WBC (Bld) 0.9 % . [facility] Creatinine and Glomerular fi ltration rate.predicted panel (S/P/Bld)Ordered By: Margarito Valentine on 06-21-2022 Creatinine [Mass/Vol] 1.24 mg/dL 0.64-1.27 [facility] Eosinophils Auto (Bld) [#/Vo l]Ordered By: Margarito Valentine on 06-21-2022 Eosinophils (Bld) [#/Vol] 0.2 10*3/uL 0.0-0.45 [facility] Eosinophils/100 WBC Auto (Bl d)Ordered By: Margarito Valentine on 06-21-2022 Eosinophils/100 WBC (Bld) 2.5 % . [facility] Erythrocyte distribution wid th Auto (RBC) [Ratio]Ordered By: Margarito Valentine on 06-21-2022 Erythrocyte distribution width (RBC) [Ratio] 18.0 % 12.0-14.8 [facility] Estimated glomerular filtrat ion rate (GFR) non- AmericanOrdered By: Margarito Valentine on 06-21-2022 GFR/1.73 sq M.predicted among non-blacks MDRD (S/P/Bld) [Vol rate/Area] 56 mL/Min [facility] Hematocrit Auto (Bld) [Volum e fraction]Ordered By: Margarito Valentine on 06-21-2022 Hematocrit (Bld) [Volume fraction] 37.7 % 38.8-50.0 [facility] Hemoglobin [Mass/volume] in BloodOrdered By: Margarito Valentine on 06-21-2022 Hemoglobin (Bld) [Mass/Vol] 12.3 g/dL 13.0-17.0 [facility] Leukocytes [#/volume] correc phil for nucleated erythrocytes in Blood by Automated counOrdered By: Margarito Valentine on 06-21-2022 WBC corrected for nucl RBC Auto (Bld) [#/Vol] 7.1 10*3/uL 4.1-10.5 [facility] Lymphocytes Auto (Bld) [#/Vo l]Ordered By: Margarito Valentine on 06-21-2022 Lymphocytes (Bld) [#/Vol] 1.3 10*3/uL 1.00-4.8 [facility] Lymphocytes/100 WBC Auto (Bl d)Ordered By: Margarito Valentine on 06-21-2022 Lymphocytes/100 WBC (Bld) 18.7 % . [facility] MCH Auto (RBC) [Entitic mass ]Ordered By: Margarito Valentine on 06-21-2022 MCH (RBC) [Entitic mass] 28.2 pg 27.5-35.2 [facility] MCHC Auto (RBC) [Mass/Vol]Or dered By: Margarito Valentine on 06-21-2022 MCHC (RBC) [Mass/Vol] 32.6 g/dL 32.5-35.6 [facility] [place] MCV Auto (RBC) [Entitic vol] Ordered By: Margarito Valentine on 06-21-2022 MCV (RBC) [Entitic vol] 86.5 fL 83.5-101 [facility] Monocytes Auto (Bld) [#/Vol] Ordered By: Margarito Valentine on 06-21-2022 Monocytes (Bld) [#/Vol] 0.7 10*3/uL 0.0-0.8 [facility] Monocytes/100 WBC Auto (Bld) Ordered By: Margarito Valentine on 06-21-2022 Monocytes/100 WBC (Bld) 10.3 % . [facility] Neutrophils Auto (Bld) [#/Vo l]Ordered By: Margarito Valentine on 06-21-2022 Neutrophils (Bld) [#/Vol] 4.8 10*3/uL 1.8-7.7 [facility] Neutrophils/100 WBC Auto (Bl d)Ordered By: Margarito Valentine on 06-21-2022 Neutrophils/100 WBC (Bld) 67.6 % . [facility] No Panel InformationOrdered By: Margarito Valentine on 06-21-2022 Estimated GFR () > 60 mL/Min [facility] Comment on above: GFR estimated refere nce range: According to KDOQI guidelines, <60 ml/min/1.73m2 is sufficient to diagnose a patient with chronic kidney disease. Pharmacy Creatinine Clearance (Chem N/A [facility] Nucleated erythrocytes [Pres ence] in Blood by Automated countOrdered By: Margarito Valentine on 06-21-2022 Nucleated RBC Auto Ql (Bld) 0.1 /100{WBC} 0-0.5 [facility] Platelet mean volume Auto (B ld) [Entitic vol]Ordered By: Margarito Valentine on 06-21-2022 Platelet mean volume (Bld) [Entitic vol] 8.2 fL 6.6-10.1 [facility] Platelets Auto (Bld) [#/Vol] Ordered By: Margarito Valentine on 06-21-2022 Platelets (Bld) [#/Vol] 149 10*3/uL 150-450 [facility] RBC Auto (Bld) [#/Vol]Ordere d By: Margarito Valentine on 06-21-2022 RBC (Bld) [#/Vol] 4.36 10*6/uL 3.90-5.60 [facility] Serum or plasma anion gap de terminationOrdered By: Margarito Valentine on 06-21-2022 Anion gap [Moles/Vol] 10.8 mmol/L 6.0-15.0 [facility] Serum or plasma calcium elan urement (mass/volume)Ordered By: Margarito Valentine on 06-21-2022 Calcium [Mass/Vol] 8.8 mg/dL 8.2-10.2 [facility] Serum or plasma chloride herb surement (moles/volume)Ordered By: Margarito Valentine on 06-21-2022 Chloride [Moles/Vol] 107 mmol/L 95-114 [facility] Serum or plasma glucose elan urement (mass/volume)Ordered By: Margarito Valentine on 06-21-2022 Glucose [Mass/Vol] 103 mg/dL 70-100 [facility] Comment on above: ADA recommended refe rence rangeRandom Glucose Reference Range is dependent on time and content of last meal. Glucose of more than 200 mg/dL in a nonstressed, ambulatory subject supports the diagnosis of Diabetes Mellitus. Serum or plasma potassium me asurement (moles/volume)Ordered By: Margarito Valentine on 06-21-2022 Potassium [Moles/Vol] 4.2 mmol/L 3.5-5.1 [facility] Serum or plasma sodium measu rement (moles/volume)Ordered By: Margarito Valentine on 06-21-2022 Sodium [Moles/Vol] 138 mmol/L 136-146 [facility] Serum or plasma total carbon dioxide measurement (moles/volume)Ordered By: Margarito Valentine on 06-21-2022 CO2 [Moles/Vol] 24.4 mmol/L 22.0-30.0 [facility] Serum or plasma urea nitroge n measurement (mass/volume)Ordered By: Margarito Valentine on 06-21-2022 Urea nitrogen [Mass/Vol] 18 mg/dL 02-15 [facility] WBC Auto (Bld) [#/Vol]Ordere d By: Margarito Valentine on 06-21-2022 WBC (Bld) [#/Vol] 7.1 10*3/uL 4.1-10.5 [facility] Office Visit (Cardiology)on 06-03-2022 Follow-up visit [...] Complaint ALEX ANDERSON is being seen for [facility] poc/ekg. 76-year-old white male who I saw [...] Signs Recorded: 03Jun2022 03:38PM Heart Rate71, Apical [id number], LUE, Sitting [id number], LUE, Sitting Height6 ft 2 in Rexvzt686 lb BMI Vtrsiylnvx47.45 kg/m2 BSA Calculated2.2 Tobacco Useb) No PHQ-2 [...] , regular (more content not included)... Normal [employer] Tobacco Screening.on 023 Adult depression screening assessment No formerly [facility] [employer] DO Work Phone: Fall risk assessment a) No falls within the last year formerly [facility] [employer] [address] DO Work Phone: Tobacco use status CPHS b) No M [facility] [employer] [address] DO Work Phone: Basophils Auto (Bld) [#/Vol] Ordered By: Bernabe Cr on 05-22-2022 Basophils (Bld) [#/Vol] 0.1 10*3/uL 0.0-0.2 [facility] Basophils/100 WBC Auto (Bld) Ordered By: Bernabe Cr on 05-22-2022 Basophils/100 WBC (Bld) 1.2 % . [facility] Creatinine and Glomerular fi ltration rate.predicted panel (S/P/Bld)Ordered By: Bernabe Cr on 05-22-2022 Creatinine [Mass/Vol] 1.78 mg/dL 0.64-1.27 [facility] Eosinophils Auto (Bld) [#/Vo l]Ordered By: Bernabe Cr on 05-22-2022 Eosinophils (Bld) [#/Vol] 0.3 10*3/uL 0.0-0.45 [facility] Eosinophils/100 WBC Auto (Bl d)Ordered By: Bernabe Cr on 05-22-2022 Eosinophils/100 WBC (Bld) 3.6 % . [facility] Erythrocyte distribution wid th Auto (RBC) [Ratio]Ordered By: Bernabe Cr on 05-22-2022 Erythrocyte distribution width (RBC) [Ratio] 15.3 % 12.0-14.8 [facility] Estimated glomerular filtrat ion rate (GFR) non- AmericanOrdered By: Bernabe Cr on 05-22-2022 GFR/1.73 sq M.predicted among non-blacks MDRD (S/P/Bld) [Vol rate/Area] 37 mL/Min [facility] Hematocrit Auto (Bld) [Volum e fraction]Ordered By: Bernabe Cr on 05-22-2022 Hematocrit (Bld) [Volume fraction] 36.2 % 38.8-50.0 [facility] Hemoglobin [Mass/volume] in BloodOrdered By: Bernabe Cr on 05-22-2022 Hemoglobin (Bld) [Mass/Vol] 11.7 g/dL 13.0-17.0 [facility] Leukocytes [#/volume] correc phil for nucleated erythrocytes in Blood by Automated counOrdered By: Bernabe Cr on 05-22-2022 WBC corrected for nucl RBC Auto (Bld) [#/Vol] 8.1 10*3/uL 4.1-10.5 [facility] Lymphocytes Auto (Bld) [#/Vo l]Ordered By: Bernabe Cr on 05-22-2022 Lymphocytes (Bld) [#/Vol] 1.4 10*3/uL 1.00-4.8 [facility] Lymphocytes/100 WBC Auto (Bl d)Ordered By: Bernabe Cr on 05-22-2022 Lymphocytes/100 WBC (Bld) 16.9 % . [facility] MCH Auto (RBC) [Entitic mass ]Ordered By: Bernabe Cr on 05-22-2022 MCH (RBC) [Entitic mass] 27.4 pg 27.5-35.2 [facility] MCHC Auto (RBC) [Mass/Vol]Or dered By: Bernabe Cr on 05-22-2022 MCHC (RBC) [Mass/Vol] 32.5 g/dL 32.5-35.6 [facility] MCV Auto (RBC) [Entitic vol] Ordered By: Bernabe Cr on 05-22-2022 MCV (RBC) [Entitic vol] 84.3 fL 83.5-101 [facility] Monocytes Auto (Bld) [#/Vol] Ordered By: Bernabe Cr on 05-22-2022 Monocytes (Bld) [#/Vol] 0.8 10*3/uL 0.0-0.8 [facility] Monocytes/100 WBC Auto (Bld) Ordered By: Bernabe Cr on 05-22-2022 Monocytes/100 WBC (Bld) 10.1 % . [facility] Neutrophils Auto (Bld) [#/Vo l]Ordered By: Bernabe rC on 05-22-2022 Neutrophils (Bld) [#/Vol] 5.6 10*3/uL 1.8-7.7 [facility] Neutrophils/100 WBC Auto (Bl d)Ordered By: Bernabe Cr on 05-22-2022 Neutrophils/100 WBC (Bld) 68.2 % . [facility] No Panel InformationOrdered By: Bernabe Cr on 05-22-2022 Estimated GFR () 45 mL/Min [facility] Comment on above: GFR estimated refere nce range: According to KDOQI guidelines, <60 ml/min/1.73m2 is sufficient to diagnose a patient with chronic kidney disease. Pharmacy Creatinine Clearance (Chem 39.77 [facility] Nucleated erythrocytes [Pres ence] in Blood by Automated countOrdered By: Bernabe Cr on 05-22-2022 Nucleated RBC Auto Ql (Bld) 0.1 /100{WBC} 0-0.5 [facility] Platelet mean volume Auto (B ld) [Entitic vol]Ordered By: Bernabe Cr on 05-22-2022 Platelet mean volume (Bld) [Entitic vol] 8.7 fL 6.6-10.1 [facility] Platelets Auto (Bld) [#/Vol] Ordered By: Bernabe Cr on 05-22-2022 Platelets (Bld) [#/Vol] 198 10*3/uL 150-450 [facility] RBC Auto (Bld) [#/Vol]Ordere d By: Bernabe Cr on 05-22-2022 RBC (Bld) [#/Vol] 4.29 10*6/uL 3.90-5.60 [facility] Serum or plasma anion gap de terminationOrdered By: Bernabe Cr on 05-22-2022 Anion gap [Moles/Vol] 13.3 mmol/L 6.0-15.0 [facility] Serum or plasma calcium elan urement (mass/volume)Ordered By: Bernabe Cr on 05-22-2022 Calcium [Mass/Vol] 8.3 mg/dL 8.2-10.2 [facility] Serum or plasma chloride herb surement (moles/volume)Ordered By: Bernabe Cr on 05-22-2022 Chloride [Moles/Vol] 104 mmol/L 95-114 [facility] Serum or plasma glucose elan urement (mass/volume)Ordered By: Bernabe Cr on 05-22-2022 Glucose [Mass/Vol] 180 mg/dL 70-100 [facility] Comment on above: ADA recommended refe rence rangeRandom Glucose Reference Range is dependent on time and content of last meal. Glucose of more than 200 mg/dL in a nonstressed, ambulatory subject supports the diagnosis of Diabetes Mellitus. Serum or plasma potassium me asurement (moles/volume)Ordered By: Bernabe Cr on 05-22-2022 Potassium [Moles/Vol] 3.3 mmol/L 3.5-5.1 [facility] Serum or plasma sodium measu rement (moles/volume)Ordered By: Bernabe Cr on 05-22-2022 Sodium [Moles/Vol] 137 mmol/L 136-146 [facility] Serum or plasma total carbon dioxide measurement (moles/volume)Ordered By: Bernabe Cr on 05-22-2022 CO2 [Moles/Vol] 23.0 mmol/L 22.0-30.0 [facility] Serum or plasma urea nitroge n measurement (mass/volume)Ordered By: Bernabe Cr on 05-22-2022 Urea nitrogen [Mass/Vol] 21 mg/dL 9-23 [facility] WBC Auto (Bld) [#/Vol]Ordere d By: Bernabe Cr on 05-22-2022 WBC (Bld) [#/Vol] 8.1 10*3/uL 4.1-10.5 [facility] No Panel InformationOrdered By: Bernabe Cr on 05-21-2022 25-Hydroxy Vitamin D Total 15.9 ng/mL 30-100 [facility] Comment on above: VITAMIN D STATUS 25( [place])VITAMIN D RANGE (ng/mL) Deficient <20 Insufficient 20 to <30Sufficient 30 to 100Reference: Sixto OLIVERA,Federico MATA, Palomo LESLIE, et al. Evaluation,treatment, and prevention of vitamin D deficiency; an Endocrine Society clinical practice guideline. JCEM. 2010; 96(7):1911-30. Vitamin C level 0.2 mg/dL 0.4-2.0 [facility] Comment on above: This test was develo ped and its performance characteristicsdetermined by [facility]. It has not been cleared orapproved by the Food and Drug Administration.Vitamin C deficiency is generally defined as plasma orserum concentrations less than 0.2 mg/dL and levels between0.2 and 0.4 mg/dL are considered low.Performed at: [facility] [id number] Director: Mamadou Rodriguez MD, Phone: [phone] Folate [Mass/volume] in Seru m or PlasmaOrdered By: Taz Barnes on 05-20-2022 Folate [Mass/Vol] 5.5 ng/mL >5.9 [facility] Comment on above: Folate reference ran ge: >5.9 ng/mlThe WHO technical consultation on folate and vitamin [id number] has determined that folate concentrations lessthan 4 ng/ml are considered deficient. Laboratory - Chemistry and C hemistry - challengeOrdered By: Taz Barnes on 05-20-2022 Cobalamin (Vitamin B12) [Mass/Vol] 169 pg/mL 180-914 [facility] No Panel InformationOrdered By: Taz Barnes on 05-20-2022 Ova and Parasite Result 1 [facility] Ova and Parasite Result 1 [facility] Ova or parasites identificat ionOrdered By: Taz Barnes on 05-20-2022 Ova and parasites identified LM Nom (Unsp spec) [facility] Ova and parasites identified LM Nom (Unsp spec) [facility] Laboratory - Chemistry and C hemistry - challengeOrdered By: Janice Gonzalez on 05-19-2022 Magnesium [Mass/Vol] 1.7 mg/dL 1.6-2.6 [facility] Automated erythrocytes count in urine sediment (number/area)Ordered By: Taz Barnes on 05-18-2022 RBC Auto (Urine sed) [#/Area] 50-100 [HPF] 0-4 [facility] Automated leukocytes count i n urine sediment (number/area)Ordered By: Taz Barnes on 05-18-2022 WBC Auto (Urine sed) [#/Area] Innumerable [HPF] 0-4 [facility] Automated urine hyaline cast s count (number/volume)Ordered By: Taz Barnes on 05-18-2022 Hyaline casts Auto (U) [#/Vol] None seen [LPF] 0-1 [facility] Bilirubin Test strip Ql (U)O rdered By: Taz Barnes on 05-18-2022 Bilirubin Ql (U) Negative Negative [facility] Casts typing in urine sedime nt by light microscopyOrdered By: Taz Barnes on 05-18-2022 Casts LM Nom (Urine sed) None seen [LPF] None Seen [facility] Color Auto (U)Ordered By: Starr Barnes on 05-18-2022 Color (U) Yellow Yellow [facility] Ketones Auto test strip (U) [Mass/Vol]Ordered By: Taz Barnes on 05-18-2022 Ketones (U) [Mass/Vol] Negative Negative Fi [facility] Nitrite Test strip Ql (U)Ord ered By: Taz Barnes on 05-18-2022 Nitrite Ql (U) Negative Negative [facility] Protein Auto test strip (U) [Mass/Vol]Ordered By: Taz Barnes on 05-18-2022 Protein (U) [Mass/Vol] 100 mg/dL Negative Fi [facility] Specific gravity Auto test s trip (U) [Rel density]Ordered By: Taz Barnes on 05-18-2022 Specific gravity (U) [Rel density] 1.010 1.001-1.03 0 [facility] Squamous epithelial cells de tection in urine sediment by light microscopyOrdered By: Taz Barnes on 05-18-2022 Epithelial cells.squamous LM Ql (Urine sed) 1-2 [HPF] 0-2 [facility] Urine bacteria detection by automated methodOrdered By: Taz Barnes on 05-18-2022 Bacteria Auto Ql (U) None seen None Seen [facility] Urine clarity by refractomet ry automatedOrdered By: Taz Barnes on 05-18-2022 Clarity Refractometry automated (U) Turbid Clear [facility] Urine culture routineOrdered By: Taz Barnes on 05-18-2022 Bacteria identified Cx Nom (U) No Growth 2 Days [facility] Bacteria identified Cx Nom (U) No Growth 2 Days [facility] Urine glucose measurement by automated test strip (mass/volume)Ordered By: Taz Barnes on 05-18-2022 Glucose Auto test strip (U) [Mass/Vol] Normal mg/dL Normal [facility] Urine hemoglobin detection b y automated test stripOrdered By: Taz Barnes on 05-18-2022 Hemoglobin Auto test strip Ql (U) 2+ Negative [facility] Urine leukocyte esterase det ection by automated test stripOrdered By: Taz Barnes on 05-18-2022 Leukocyte esterase Auto test strip Ql (U) 4+ Negative [facility] Urobilinogen Auto test strip (U) [Mass/Vol]Ordered By: Taz Barnes on 05-18-2022 Urobilinogen (U) [Mass/Vol] Normal mg/dL Normal [facility] Yeast detection in urine sed iment by light microscopyOrdered By: Taz Barnes on 05-18-2022 Yeast LM Ql (Urine sed) None seen [HPF] None Se en [facility] pH Auto test strip (U)Ordere d By: Taz Barnes on 05-18-2022 pH (U) 7.5 [pH] 5.0-9.0 [facility] Activated partial thrombopla stin time (aPTT) in platelet poor plasma by coagulation aOrdered By: Taz Barnes on 05-16-2022 aPTT Coag (PPP) [Time] 29.5 s 25.1-36.5 [facility] Body fluid albumin measureme nt (mass/volume)Ordered By: Taz Barnes on 05-16-2022 Albumin (Body fld) [Mass/Vol] 2.9 g/dL 3.2-5.5 [facility] CBC AUTO DIFFon 12-22-2022 BASO # 0.0 103/ul Normal 0.0-0.1 [facility] Comment on above: Performed By: #### C BC #### [facility] [address] [place] [address] Dr. Karen Pierce Basophils/100 WBC (Bld) 0.3 % Normal 0.2-2.0 [facility] Comment on above: Performed By: #### C BC #### [facility] [address] [place] [address] Dr. Karen Pierce EO # 0.1 103/ul Normal 0.0-0.7 [facility] Comment on above: Performed By: #### C BC #### [facility] [address] [place] [address] Dr. Karen Pierce Eosinophils/100 WBC (Bld) 0.7 % Critically low 0.9-7.0 [facility] Comment on above: Performed By: #### C BC #### [facility] [address] [place] [address] Dr. Karen Pierce Erythrocyte distribution width (RBC) [Ratio] 14.8 % Normal 11.0-15.0 [facility] Comment on above: Performed By: #### C BC #### [facility] [address] [place] [address] Dr. Karen Pierce Hematocrit (Bld) [Volume fraction] 39.4 % Critically low 42.0-54.0 [facility] Comment on above: Performed By: #### C BC #### [facility] [address] [place] [address] Dr. Karen Pierce Hemoglobin (Bld) [Mass/Vol] 12.6 g/dL Critically low 14.0-18.0 [facility] Comment on above: Performed By: #### C BC #### [facility] [address] [place] [address] Dr. Karen Pierce IG # 0.04 10e3/ul Critically high 0.00-0.03 [facility] Comment on above: Performed By: #### C BC #### [facility] [address] [place] [address] Dr. Karen Pierce IG % 0.4 % Normal 0.0-0.5 [facility] Comment on above: Performed By: #### C BC #### [facility] [address] [place] [address] Dr. Karen Pierce LYMPH # 1.2 103/ul Normal 1.2-3.8 [facility] Comment on above: Performed By: #### C BC #### [facility] [address] [place] [address] Dr. Karen Pierce Lymphocytes/100 WBC (Bld) 11.8 % Critically low 20.5-60.0 [facility] Comment on above: Performed By: #### C BC #### [facility] [address] [place] [address] Dr. Karen Pierce MANUAL DIFF REQ NO Normal [facility] Comment on above: Performed By: #### C BC #### [facility] [address] [place] [address] Dr. Karen Pierce MCH (RBC) [Entitic mass] 27.5 pg Normal 25.9-34.0 [facility] Comment on above: Performed By: #### C BC #### [facility] [address] [place] [address] Dr. Karen Pierce MCHC (RBC) [Mass/Vol] 32.0 g/dL Normal 29.9-35.2 [facility] Comment on above: Performed By: #### C BC #### [facility] [address] [place] [address] Dr. Karen Pierce MCV (RBC) [Entitic vol] 86.0 fL Normal 80.0-94.0 [facility] Comment on above: Performed By: #### C BC #### [facility] [address] [place] [address] Dr. Karen Pierce MONO # 1.4 103/ul Critically high 0.3-0.8 [facility] Comment on above: Performed By: #### C BC #### [facility] [address] [place] [address] Dr. Karen Pierce Monocytes/100 WBC (Bld) 13.8 % Critically high 1.7-12. 0 [facility] Comment on above: Performed By: #### C BC #### [facility] [address] [place] [address] Dr. Karen Pierce NEUT # 7.6 103/ul Critically high 1.4-6.5 [facility] Comment on above: Performed By: #### C BC #### [facility] [address] [place] [address] Dr. Karen Pierce Neutrophils/100 WBC (Bld) 73.0 % Normal 43.0-75.0 [facility] Comment on above: Performed By: #### C BC #### [facility] [address] [place] [address] Dr. Karen Pierce Platelet mean volume (Bld) [Entitic vol] 10.6 fL Normal 9.5-13.5 [facility] Comment on above: Performed By: #### C BC #### [facility] [address] [place] [address] Dr. Karen Pierce PLT 193 103/ul Normal 150-450 [facility] Comment on above: Performed By: #### C BC #### [facility] [address] [place] [address] Dr. Karen Pierce RBC 4.58 106/ul Critically low 4.70-6.10 [facility] Comment on above: Performed By: #### C BC #### [facility] [address] [place] [address] Dr. Karen Pierce WBC 10.4 103/ul Normal 4.0-11.0 [facility] Comment on above: Performed By: #### C BC #### [facility] [address] [place] [address] ABD/PELVIS WO CONon [...] LORENZO SCHERER Date: 2022-05-16 09:21 Normal The [facility] CULTURE URINEon 05-16-2022 CULTURE URINE Culture Observations : MODERATE GROWTH OF MIXED SKIN JAS. NO POTENTIAL PATHOGENS SEEN. Normal The [facility] Comment on above: Performed By: #### U RTPCR #### [facility] [address] [place] [address] Dr. Karen Pierce Covid-19 PCR ([facility])on 04-26 SARS-CoV-2 (COVID-19) RNA KARI+probe Ql (Unsp spec) Not detected Normal NOT DETECTED [facility] Comment on above: Result Comment: When diagnostic [...] for this test is supported by the [employer] of Health and Human Service's declaration that [...] used). Performed By: #### U A #### [facility] [address] [place] [address] Dr. Karen Pierce Creatinine [Mass/volume] in UrineOrdered By: Taz Barnes on 05-16-2022 Creatinine (U) [Mass/Vol] 68.1 mg/dL [facility] Comment on above: No reference range e stablished ER URINE PROFILEon Bilirubin Ql (U) Negative Normal NEGATIVE The [facility] Comment on above: Performed By: #### U RTPCR #### [facility] [address] [place] [address] Dr. Karen Pierce Clarity (U) CLEAR Normal CLEAR [facility] Comment on above: Performed By: #### U RTPCR #### [facility] [address] [place] [address] Dr. Karen Pierce Color (U) YELLOW Normal YELLOW [facility] Comment on above: Performed By: #### U RTPCR #### [facility] [address] [place] [address] Dr. Karen HILLMAN A micrscopic examina tion will be performed if indicated. Normal The [facility] Comment on above: Performed By: #### U RTPCR #### [facility] [address] [place] [address] Dr. Karen Pierce Glucose Ql (U) Negative Normal NEGATIVE [facility] Comment on above: Performed By: #### U RTPCR #### [facility] [address] [place] [address] Dr. Karen Pierce Hemoglobin Ql (U) MODERATE Abnormal NEGATIVE [facility] Comment on above: Performed By: #### U RTPCR #### [facility] [address] [place] [address] Dr. Karen Pierce Ketones Ql (U) Negative Normal NEGATIVE [facility] Comment on above: Performed By: #### U RTPCR #### [facility] [address] [place] [address] Dr. Karen Pierce LEUKOCYTES LARGE Abnormal NEGATIVE [facility] Comment on above: Performed By: #### U RTPCR #### [facility] [address] [place] [address] Dr. Karen Pierce Nitrite Ql (U) Negative Normal NEGATIVE [facility] Comment on above: Performed By: #### U RTPCR #### [facility] [address] [place] [address] Dr. Karen Pierce pH (U) 5.5 [pH] Normal 5-9 [facility] Comment on above: Performed By: #### U RTPCR #### [facility] [address] [place] [address] Dr. Karen Pierce SPEC GRAVITY <=1.005 Abnormal 1.005-<=1. 025 [facility] Comment on above: Performed By: #### U RTPCR #### [facility] [address] [place] [address] Dr. Karen Pierce UA PROTEIN Negative Normal NEGATIVE/ TRACE [facility] Comment on above: Performed By: #### U RTPCR #### [facility] [address] [address] [address] Karen Pierce UR MICRO IND INDICATED Normal [facility] Comment on above: Performed By: #### U RTPCR #### [facility] [address] [address] [address] Karen Pierce Urobilinogen Qn (U) 0.2 {Tonio'U}/dL Normal 0.2 - 1. 0 [facility] Comment on above: Performed By: #### U RTPCR #### [facility] [address] [address] [address] Karen Pierce Globulin Calc (S) [Mass/Vol] Ordered By: aTz Barnes on 05-16-2022 Globulin (S) [Mass/Vol] 3.5 g/dL [facility] Laboratory - CoagulationOrde red By: Taz Barnes on 05-16-2022 PT Coag (PPP) [Time] 14.2 s 9.0-12.9 [facility] PROF 14(COMP METB)on 022 Albumin [Mass/Vol] 3.1 g/dL Critically low 3.4-5.0 Th e [facility] Comment on above: Performed By: #### U RTPCR #### [facility] [address] [place] [address] Dr. Karen Pierce Albumin/Globulin [Mass ratio] 0.7 {ratio} Normal [facility] Comment on above: Performed By: #### U RTPCR #### [facility] [address] [place] [address] Dr. Karen Pierce ALP [Catalytic activity/Vol] 96 U/L Normal 46-116 [facility] Comment on above: Performed By: #### U RTPCR #### [facility] [address] [place] [address] Dr. Karen Pierce ALT [Catalytic activity/Vol] 46 U/L Normal 16-63 [facility] Comment on above: Performed By: #### U RTPCR #### [facility] [address] [place], [place] [id number] Dr. Karen Pierce Anion gap [Moles/Vol] 19.7 mmol/L Normal Th e [facility] Comment on above: Performed By: #### U RTPCR #### [facility] [address] [address] [address] Karen Pierce AST [Catalytic activity/Vol] 21 U/L Normal 15-37 [facility] Comment on above: Performed By: #### U RTPCR #### [facility] [address] [address] [address] Karen Pierce Bilirubin [Mass/Vol] 0.3 mg/dL Normal 0.2-1.0 [facility] Comment on above: Performed By: #### U RTPCR #### [facility] [address] [place] [address] Dr. Karen Pierce Calcium [Mass/Vol] 8.9 mg/dL Normal 8.5-10.1 [facility] Comment on above: Performed By: #### U RTPCR #### [facility] [address] [place] [address] Dr. Karen Pierce Chloride [Moles/Vol] 101 mmol/L Normal 98-107 [facility] Comment on above: Performed By: #### U RTPCR #### [facility] [address] [place] [address] Dr. Karen Pierce CO2 [Moles/Vol] 18.3 mmol/L Critically low 21.0-32.0 [facility] Comment on above: Performed By: #### U RTPCR #### [facility] [address] [place] [address] Dr. Karen Pierce Creatinine [Mass/Vol] 8.99 mg/dL Critically high 0.70-1.30 [facility] Comment on above: Performed By: #### U RTPCR #### [facility] [address] [place] [address] Dr. Karen Pierce EGFR-AF MALAWIAN 7 mL/min/1.73m2 Critically low >=60 [facility] Comment on above: Performed By: #### U RTPCR #### [facility] [address] [place] [address] Dr. Karen Pierce EGFR-NON AF MALAWIAN 6 mL/min/1.73m2 Critically low >=60 [facility] Comment on above: Performed By: #### U RTPCR #### [facility] [address] [address] [address] Karen Pierce Globulin (S) [Mass/Vol] 4.7 g/dL Normal [facility] Comment on above: Performed By: #### U RTPCR #### [facility] [address] [address] [address] Karen Pierce Glucose [Mass/Vol] 110 mg/dL Critically high 74-106 [facility] Comment on above: Performed By: #### U RTPCR #### [facility] [address] [address] [address] Karen Pierce Potassium [Moles/Vol] 5.0 mmol/L Normal 3.5-5.1 [facility] Comment on above: Performed By: #### U RTPCR #### [facility] [address] [address] [address] Karen Pierce Protein [Mass/Vol] 7.8 g/dL Normal 6.4-8.2 [facility] Comment on above: Performed By: #### U RTPCR #### [facility] [address] [place] [address] Dr. Karen Pierce Sodium [Moles/Vol] 134 mmol/L Critically low 136-145 [facility] Comment on above: Performed By: #### U RTPCR #### [facility] [address] [address] [address] Karen Pierce Urea nitrogen [Mass/Vol] 129.0 mg/dL Critically high 7.0-18.0 [facility] Comment on above: Performed By: #### U RTPCR #### [facility] [address] [address] [address] Kaern Pierce Urea nitrogen/Creatinine [Mass ratio] 14.3 mg/mg Normal [facility] Comment on above: Performed By: #### U RTPCR #### [facility] [address] [address] [address] Karen Pierce Platelet poor plasma interna tional normalized ratio (INR) by coagulation assay (relatOrdered By: Taz Barnes on 05-16-2022 INR Coag (PPP) [Relative time] 1.3 {INR} [facility] Comment on above: INR Therapeutic Rang e [...] on 05-16-2022 Protein [Mass/Vol] 6.4 g/dL 6.1-7.9 [facility] Serum or plasma alanine bal otransferase measurement without P-5'-P (enzymatic activiOrdered By: Taz Barnes on 05-16-2022 ALT No additional P-5'-P [Catalytic activity/Vol] 38 U/L 10-60 [facility] Serum or plasma albumin/glob ulin mass ratioOrdered By: Taz Barnes on 05-16-2022 Albumin/Globulin [Mass ratio] 0.8 {ratio} [facility] Serum or plasma alkaline deonte sphatase measurement (enzymatic activity/volume)Ordered By: Taz Barnes on 05-16-2022 ALP [Catalytic activity/Vol] 78 U/L 32-92 [facility] Serum or plasma aspartate am inotransferase measurement (enzymatic activity/volume)Ordered By: Taz Barnes on 05-16-2022 AST [Catalytic activity/Vol] 19 U/L 10-42 [facility] Serum or plasma total biliru bin measurement (mass/volume)Ordered By: Taz Barnes on 05-16-2022 Bilirubin [Mass/Vol] 0.4 mg/dL 0.3-1.2 [facility] URINE MICROSCOPIC ONLYon BACTERIA SMALL Abnormal NONE SEEN The [facility] Comment on above: Performed By: #### U RTPCR #### [facility] [address] [place] [address] Dr. Karen Pierce Bacteria identified Cx Nom (U) INDICATED Normal [facility] Comment on above: Performed By: #### U RTPCR #### [facility] [address] [place] [address] Dr. Karen Pierce CAST NONE SEEN Normal NONE SEEN [facility] Comment on above: Performed By: #### U RTPCR #### [facility] [address] [place] [address] Dr. Karen Pierce Crystals LM Nom (Urine sed) NONE SEEN Normal NONE SEEN [facility] Comment on above: Performed By: #### U RTPCR #### [facility] [address] [place] [address] Dr. Karen Pierce Epithelial cells LM Ql (Urine sed) NONE SEEN Normal NONE SEEN /RARE [facility] Comment on above: Performed By: #### U RTPCR #### [facility] [address] [place] [address] Dr. Karen Pierce MUCOUS NONE SEEN Normal NONE SEEN [facility] Comment on above: Performed By: #### U RTPCR #### [facility] [address] [place] [address] Dr. Karen Pierce RBC 20-50 Abnormal 0-2 [facility] Comment on above: Performed By: #### U RTPCR #### [facility] [address] [place] [address] Dr. Karen Pierce WBC (U) [#/Vol] /uL Abnormal NONE SEEN The [facility] Comment on above: Performed By: #### U RTPCR #### [facility] [address] [place] [address] Dr. Karen Pierce Urine sodium measurement (mo les/volume)Ordered By: Taz Barnes on 05-16-2022 Sodium (U) [Moles/Vol] 42.0 mmol/L F [facility] Comment on above: No reference range [...] LORENZO SCHERER Date: 2022-05-16 09:25 Normal [facility] CBC AUTO DIFFon 05-15-2022 BASO # 0.0 103/ul Normal 0.0-0.1 [facility] Comment on above: Performed By: #### U A #### [facility] [address] [address] [address] Karen Pierce Basophils/100 WBC (Bld) 0.3 % Normal 0.2-2.0 [facility] Comment on above: Performed By: #### U A #### [facility] [address] [place] [address] Dr. Karen Pierce EO # 0.1 103/ul Normal 0.0-0.7 [facility] Comment on above: Performed By: #### U A #### [facility] [address] [address] [address] Karen Pierce Eosinophils/100 WBC (Bld) 0.7 % Critically low 0.9-7.0 [facility] Comment on above: Performed By: #### U A #### [facility] [address] [address] [address] Karen Pierce Erythrocyte distribution width (RBC) [Ratio] 14.9 % Normal 11.0-15.0 [facility] Comment on above: Performed By: #### U A #### [facility] [address] [place] [address] Dr. Karen Pierce Hematocrit (Bld) [Volume fraction] 39.8 % Critically low 42.0-54.0 [facility] Comment on above: Performed By: #### U A #### [facility] [address] [place] [address] Dr. Karen Pierce Hemoglobin (Bld) [Mass/Vol] 12.7 g/dL Critically low 14.0-18.0 [facility] Comment on above: Performed By: #### U A #### [facility] [address] [place] [address] Dr. Karen Pierce IG # 0.06 10e3/ul Critically high 0.00-0.03 [facility] Comment on above: Performed By: #### U A #### [facility] [address] [place] [address] Dr. Karen Pierce IG % 0.5 % Normal 0.0-0.5 [facility] Comment on above: Performed By: #### U A #### [facility] [address] [place] [address] Dr. Karen Pierce LYMPH # 0.9 103/ul Critically low 1.2-3.8 [facility] Comment on above: Performed By: #### U A #### [facility] [address] [place] [address] Dr. Karen Pierce Lymphocytes/100 WBC (Bld) 7.1 % Critically low 20.5-60.0 [facility] Comment on above: Performed By: #### U A #### [facility] [address] [place] [address] Dr. Karen Pierce MANUAL DIFF REQ NO Normal [facility] Comment on above: Performed By: #### U A #### [facility] [address] [place] [address] Dr. Karen Pierce MCH (RBC) [Entitic mass] 27.7 pg Normal 25.9-34.0 [facility] Comment on above: Performed By: #### U A #### [facility] [address] [place] [address] Dr. Karen Pierce MCHC (RBC) [Mass/Vol] 31.9 g/dL Normal 29.9-35.2 [facility] Comment on above: Performed By: #### U A #### [facility] [address] [place] [address] Dr. Karen Pierce MCV (RBC) [Entitic vol] 86.7 fL Normal 80.0-94.0 [facility] Comment on above: Performed By: #### U A #### [facility] [address] [place] [address] Dr. Karen Pierce MONO # 1.0 103/ul Critically high 0.3-0.8 [facility] Comment on above: Performed By: #### U A #### [facility] [address] [place] [address] Dr. Karen Pierce Monocytes/100 WBC (Bld) 8.5 % Normal 1.7-12.0 [facility] Comment on above: Performed By: #### U A #### [facility] [address] [place] [address] Dr. Karen Pierce NEUT # 9.9 103/ul Critically high 1.4-6.5 [facility] Comment on above: Performed By: #### U A #### [facility] [address] [place] [address] Dr. Karen Pierce Neutrophils/100 WBC (Bld) 82.9 % Critically high 43.0-75.0 [facility] Comment on above: Performed By: #### U A #### [facility] [address] [place] [address] Dr. Karen Pierce Platelet mean volume (Bld) [Entitic vol] 9.7 fL Normal 9.5-13.5 [facility] Comment on above: Performed By: #### U A #### [facility] [address] [place] [address] Dr. Karen Pierce PLT 206 103/ul Normal 150-450 [facility] Comment on above: Performed By: #### U A #### [facility] [address] [place] [address] Dr. Karen Pierce RBC 4.59 106/ul Critically low 4.70-6.10 [facility] Comment on above: Performed By: #### U A #### [facility] [address] [place] [address] Dr. Karen Pierce WBC 11.9 103/ul Critically high 4.0-11.0 [facility] Comment on above: Performed By: #### U A #### [facility] [address] [place] [address] Dr. Karen Pierce LIPASEon 05-15-2022 Lipase [Catalytic activity/Vol] 340.0 U/L Normal 73.0-393.0 [facility] Comment on above: Performed By: #### U A #### [facility] [address] [place] [address] Dr. Karen Pierce PROF 14(COMP METB)on 022 Albumin [Mass/Vol] 3.1 g/dL Critically low 3.4-5.0 [facility] Comment on above: Performed By: #### U A #### [facility] [address] [place] [address] Dr. Karen Pierce Albumin/Globulin [Mass ratio] 0.7 {ratio} Normal [facility] Comment on above: Performed By: #### U A #### [facility] [address] [place] [address] Dr. Karen Pierce ALP [Catalytic activity/Vol] 105 U/L Normal 46-116 [facility] Comment on above: Performed By: #### U A #### [facility] [address] [place] [address] Dr. Karen Pierce ALT [Catalytic activity/Vol] 49 U/L Normal 16-63 [facility] Comment on above: Performed By: #### U A #### [facility] [address] [place] [address] Dr. Karen Pierce Anion gap [Moles/Vol] 18.4 mmol/L Normal [facility] Comment on above: Performed By: #### U A #### [facility] [address] [place] [address] Dr. Karen Pierce AST [Catalytic activity/Vol] 20 U/L Normal 15-37 [facility] Comment on above: Performed By: #### U A #### [facility] [address] [place] [address] Dr. Karen Pierce Bilirubin [Mass/Vol] 0.3 mg/dL Normal 0.2-1.0 [facility] Comment on above: Performed By: #### U A #### [facility] [address] [place] [address] Dr. Karen Pierce Calcium [Mass/Vol] 9.1 mg/dL Normal 8.5-10.1 [facility] Comment on above: Performed By: #### U A #### [facility] [address] [place] [address] Dr. Karen Pierce Chloride [Moles/Vol] 103 mmol/L Normal 98-107 [facility] Comment on above: Performed By: #### U A #### [facility] [address] [place] [address] Dr. Karen Pierce CO2 [Moles/Vol] 20.1 mmol/L Critically low 21.0-32.0 [facility] Comment on above: Performed By: #### U A #### [facility] [address] [place] [address] Dr. Karen Pierce Creatinine [Mass/Vol] 9.58 mg/dL Critically high 0.70-1.30 [facility] Comment on above: Performed By: #### U A #### [facility] [address] [place] [address] Dr. Karen Pierce EGFR-AF MALAWIAN 6 mL/min/1.73m2 Critically low >=60 [facility] Comment on above: Performed By: #### U A #### [facility] [address] [place] [address] Dr. Karen Pierce EGFR-NON AF MALAWIAN 5 mL/min/1.73m2 Critically low >=60 [facility] Comment on above: Performed By: #### U A #### [facility] [address] [place] [address] Dr. Karen Pierce Globulin (S) [Mass/Vol] 4.6 g/dL Normal [facility] Comment on above: Performed By: #### U A #### [facility] [address] [place] [address] Dr. Karen Pierce Glucose [Mass/Vol] 114 mg/dL Critically high 74-106 [facility] Comment on above: Performed By: #### U A #### [facility] [address] [address] [address] Karen Pierce Potassium [Moles/Vol] 5.5 mmol/L Critically high 3.5-5.1 [facility] Comment on above: Performed By: #### U A #### [facility] [address] [address] [address] Karen Peirce Protein [Mass/Vol] 7.7 g/dL Normal 6.4-8.2 [facility] Comment on above: Performed By: #### U A #### [facility] [address] [address] [address] Karen Pierce Sodium [Moles/Vol] 136 mmol/L Normal 136-145 [facility] Comment on above: Performed By: #### U A #### [facility] [address] [address] [address] Karen Pierce Urea nitrogen [Mass/Vol] 134.0 mg/dL Critically high 7.0-18.0 [facility] Comment on above: Performed By: #### U A #### [facility] [address] [address] [address] Karen Pierce Urea nitrogen/Creatinine [Mass ratio] 14.0 mg/mg Normal [facility] Comment on above: Performed By: #### U A #### [facility] [address] [address] [address] Karen Pierce PROF CHEM 8 (BAS METB)on Anion gap [Moles/Vol] 12.6 mmol/L Normal [facility] Comment on above: Performed By: #### B MP #### [facility] [address] [address] [address] Karen Pierce Calcium [Mass/Vol] 8.7 mg/dL Normal 8.5-10.1 [facility] Comment on above: Performed By: #### B MP #### [facility] [address] [address] [address] Karen Pierce Chloride [Moles/Vol] 103 mmol/L Normal 98-107 [facility] Comment on above: Performed By: #### B MP #### [facility] [address] [address] [address] Karen Pierce CO2 [Moles/Vol] 27.3 mmol/L Normal 21.0-32.0 [facility] Comment on above: Performed By: #### B MP #### [facility] [address] [address] [address] Karen Pierce Creatinine [Mass/Vol] 1.26 mg/dL Normal 0.70-1.30 [facility] Comment on above: Performed By: #### B MP #### [facility] [address] [address] [address] Karen Pierce EGFR-AF MALAWIAN >60 Normal >=60 [facility] Comment on above: Performed By: #### B MP #### [facility] [address] [address] [address] Karen Pierce EGFR-NON AF MALAWIAN 55 mL/min/1.73m2 Critically low >=60 [facility] Comment on above: Performed By: #### B MP #### [facility] [address] [address] [address] Karen Pierce Glucose [Mass/Vol] 111 mg/dL Critically high 74-106 [facility] Comment on above: Performed By: #### B MP #### [facility] [address] [address] [address] Karen Pierce Potassium [Moles/Vol] 3.9 mmol/L Normal 3.5-5.1 [facility] Comment on above: Performed By: #### B MP #### [facility] [address] [address] [address] Karen Pierce Sodium [Moles/Vol] 139 mmol/L Normal 136-145 [facility] Comment on above: Performed By: #### B MP #### [facility] [address] [address] [address] Karen Pierce Urea nitrogen [Mass/Vol] 21.0 mg/dL Critically high 7.0-18.0 [facility] Comment on above: Performed By: #### B MP #### [facility] [address] [place], [place] [address] Dr. Karen Pierce Urea nitrogen/Creatinine [Mass ratio] 16.7 mg/mg Normal [facility] Comment on above: Performed By: #### B MP #### [facility] [address] [place], [place] [address] Dr. Karen Pierce Comprehensive Metabolic Pane [facility] 05-11-2021 Albumin [Mass/Vol] 4.5 g/dL Normal 3.6-5.[address] [facility] Comment on above: Performed By: #### C MP, LIPD #### [facility] [address] [place], [place] [id number] Albumin/Globulin [Mass ratio] 2.0 {ratio} Normal 1.0-2.5 [facility] Comment on above: Performed By: #### C MP, LIPD #### [facility] [address] [place], [place] [id number] ALP [Catalytic activity/Vol] 97 U/L Normal 40-129 [facility] Comment on above: Performed By: #### C MP, LIPD #### [facility] [address] [id number] ALT [Catalytic activity/Vol] 18 U/L Normal 9-46 [facility] Comment on above: Result Comment: 04/25 Female reference range changed. Performed By: #### C MP, LIPD #### [facility] [address] [id number] Anion gap [Moles/Vol] 17 mmol/L Normal 12-20 [facility] Comment on above: Result Comment: Effe ctive 05/31/2019 reference range changed. Performed By: #### C MP, LIPD #### [facility] [address] [id number] AST [Catalytic activity/Vol] 15 U/L Normal 10-40 [facility] Comment on above: Performed By: #### C MP, LIPD #### [facility] [address] [id number] Bilirubin [Mass/Vol] 0.55 mg/dL Normal 0.30-1.20 [facility] Comment on above: Performed By: #### C MP, LIPD #### [facility] [address] [facility] [place] [id number] BUN/CREA 17 Ratio Normal 6-22 [facility] Comment on above: Performed By: #### C MP, LIPD #### [facility] [address] [facility] [place] [id number] Calcium [Mass/Vol] 9.8 mg/dL Normal 8.6-10.[address] [facility] Comment on above: Performed By: #### C MP, LIPD #### [facility] [address] [facility] [place] [id number] Chloride [Moles/Vol] 106 mmol/L Normal 98-107 [facility] Comment on above: Performed By: #### C MP, LIPD #### [facility] [address] [facility] [place] [id number] CO2 [Moles/Vol] 23 mmol/L Normal 20-31 [facility] Comment on above: Performed By: #### C MP, LIPD #### [facility] [address] [facility] [place] [id number] Creatinine [Mass/Vol] 1.2 mg/dL Normal 0.7-1.4 [facility] Comment on above: Performed By: #### C MP, LIPD #### [facility] [address] [facility] [place] [id number] eGFRAA 73 mL/min/1.73m2 Normal >60 [facility] Comment on above: Performed By: #### C MP, LIPD #### [facility] [address] [id number] eGFRNAA 60 mL/min/1.73m2 Low >60 [facility] Comment on above: Performed By: #### C MP, LIPD #### [facility] [address] [facility] [place] [id number] Globulin (S) [Mass/Vol] 2.3 g/dL Normal 1.9-3.7 [facility] Comment on above: Performed By: #### C MP, LIPD #### [facility] [address] [place] [id number] Glucose [Mass/Vol] 105 mg/dL High 65-99 [facility] [employer] Comment on above: Result Comment: For FASTING Glucose --- ADA reference ranges: Normal 65-99 mg/dl Prediabetes 100-125 Diabetes >/= 126 Performed By: #### C MP, LIPD #### [facility] [address] [place], [place] [id number] Potassium [Moles/Vol] 4.1 mmol/L Normal 3.5-5.5 [facility] Comment on above: Performed By: #### C MP, LIPD #### [facility] [address] [place], [place] [id number] Protein [Mass/Vol] 6.8 g/dL Normal 6.1-8.1 [facility] [employer] Comment on above: Performed By: #### C MP, LIPD #### [facility] [address] [place], [place] [id number] Sodium [Moles/Vol] 142 mmol/L Normal 135-146 [facility] [employer] Comment on above: Performed By: #### C MP, LIPD #### [facility] [address] [place], [place] [id number] Urea nitrogen [Mass/Vol] 20 mg/dL Normal 7-25 [facility] Comment on above: Performed By: #### C MP, LIPD #### [facility] [address] [place], [place] [id number] Lipid Panelon 05-11-2021 Cholesterol [Mass/Vol] 109 mg/dL Low 125-[address] [facility] Comment on above: Result Comment: Low risk < 200mg/dL Borderline risk 201-239 mg/dl High risk > or equal to 240 Performed By: #### C MP, LIPD #### [facility] [address] [place], [place] [id number] Cholesterol in HDL [Mass/Vol] 30 mg/dL Low >40 [facility] Manager Of [employer] Comment on above: Result Comment: High Cardiovascular Risk HDL <40 mg/dL Low Cardiovascular Risk HDL > or equal to 60 mg/dl Performed By: #### C MP, LIPD #### [facility] [address] [place], [place] [id number] Cholesterol in LDL [Mass/Vol] 54 mg/dL Normal [facility] Comment on above: Result Comment: LDL ATP III CLASSIFICATION LDL less than 100 mg/dl Optimal LDL 100-129 mg/dl Near or above optimal LDL 130-159 Borderline high LDL 160-189 High LDL greater than 189 mg/dl Very High Performed By: #### C MP, LIPD #### [facility] [address] [place], [place] [id number] Cholesterol in VLDL [Mass/Vol] 25 mg/dL Normal [facility] Comment on above: Performed By: #### C MP, LIPD #### [facility] [address] [place], [place] [id number] Cholesterol.total/Sonya sterol in HDL [Mass ratio] 4 {ratio} Normal [facility] Comment on above: Performed By: #### C MP, LIPD #### [facility] [address] [place], [place] [id number] Triglyceride [Mass/Vol] 126 mg/dL Normal 30-150 [facility] Comment on above: Result Comment: TRIG ATPIII CLASSIFICATIONS TRIG less than 150 mg/dl Normal TRIG 150-199 mg/dl Borderline High TRIG 200-500 mg/dl High TRIG greather than 500 mg/dl Very High Performed By: #### C MP, LIPD #### [facility] [address] [place], [place] [id number] Vital Signs Date Time Vital Sign Value Performing Clinician Facility 09-18-2023 10:47-0400 Body height 187.96 cm MD Stanley Emerson Work Phone: [facility] 09-18-2023 10:47-0400 Body mass index (BMI) [Ratio] 28.6 kg/m2 MD Stanley Emerson Work Phone: [facility] 09-18-2023 10:47-0400 Body temperature 97.8 [degF] MD Stanley Emerson Work Phone: [facility] 09-18-2023 10:47-0400 Body weight 101.15 kg MD Stanley Emerson Work Phone: [facility] 09-18-2023 10:47-0400 Diastolic blood pressure 68 mm[Hg] MD Stanley Emerson Work Phone: [facility] 09-18-2023 10:47-0400 Heart rate 64 /min MD Stanley Emerson Work Phone: [facility] 09-18-2023 10:47-0400 Respiratory rate 16 /min MD Stanley Emerson Work Phone: [facility] 09-18-2023 10:47-0400 SaO2% (BldA) [Mass fraction] 98 % MD Stanley Emerson Work Phone: [facility] 09-18-2023 10:47-0400 Systolic blood pressure 118 mm[Hg] MD Stanley Emerson Work Phone: [facility] 06-30-2023 14:17-0500 Blood Pressure Location Katia SAMUELS [facility] 06-30-2023 14:17-0500 Diastolic blood pressure 77 mm[Hg] Katia SAMUELS [facility] 06-30-2023 14:17-0500 Heart rate 70 /min Katia SAMUELS [facility] 06-30-2023 14:17-0500 Respiratory rate 16 /min Katia SAMUELS [facility] 06-30-2023 14:17-0500 Systolic blood pressure 109 mm[Hg] Katia SAMUELS [facility] 04-15-2023 14:00-0500 Body height 187.96 cm Celia Griffin Other [employer] Other 04-15-2023 14:00-0500 Body mass index (BMI) [Ratio] 28.73 kg/m2 Celia Griffin Other [employer] Other 04-15-2023 14:00-0500 Body temperature 96.8 [degF] Celia Griffin Other [employer] Other 04-15-2023 14:00-0500 Body weight 101.52 kg Celia Griffin Other [employer] Other 04-15-2023 14:00-0500 Diastolic blood pressure 100 mm[Hg] Celia Rothmans Other [employer] Other 04-15-2023 14:00-0500 Respiratory rate 18 /min Celia Griffin Other [employer] Other 04-15-2023 14:00-0500 SaO2% (BldA) [Mass fraction] 96 % Celia Griffin Other [employer] Other 04-15-2023 14:00-0500 Systolic blood pressure 161 mm[Hg] Celia Rothmans Other [employer] Other 03-11-2023 13:38-0400 Blood Pressure Location Katia SAMUELS [facility] 03-11-2023 13:38-0400 Diastolic blood pressure 100 mm[Hg] Katia SAMUELS [facility] 03-11-2023 13:38-0400 Heart rate 72 /min Katia SAMUELS [facility] 03-11-2023 13:38-0400 Systolic blood pressure 150 mm[Hg] Katia SAMUELS [facility] 01-22-2023 09:57-0400 Body height 187.96 cm Stanley Emerson Work Phone: formerly [facility] DO Work Phone: 01-22-2023 09:57-0400 Body mass index (BMI) [Ratio] 27.35 kg/m2 Stanley Emerson Work Phone: formerly [facility] 250 DO Work Phone: 01-22-2023 09:57-0400 Body surface area Derived from formula 2.23 m2 Stanley Emerson Work Phone: formerly [facility] 250 DO Work Phone: 01-22-2023 09:57-0400 Body weight 96.62 kg Stanley Emerson Work Phone: formerly [facility] 250 DO Work Phone: 01-22-2023 09:57-0400 Diastolic blood pressure 88 mm[Hg] Stanley Emerson Work Phone: formerly [facility] 250 DO Work Phone: 01-22-2023 09:57-0400 Heart rate 72 /min Stanley Emerson Work Phone: formerly [facility] 250 DO Work Phone: 01-22-2023 09:57-0400 Systolic blood pressure 126 mm[Hg] Stanley Emerson Work Phone: formerly [facility] DO Work Phone: 08-21-2022 14:30-0400 Body height 187.96 cm Carlene Kasper Other [employer] Other 08-21-2022 14:30-0400 Body mass index (BMI) [Ratio] 26.32 kg/m2 Carlene Kasper Other [employer] Other 08-21-2022 14:30-0400 Body temperature 97.8 [degF] Carlene Kasper Other [employer] Other 08-21-2022 14:30-0400 Body weight 92.99 kg Carlene Kasper Other [employer] Other 08-21-2022 14:30-0400 Diastolic blood pressure 82 mm[Hg] Carlene Kasper Other [employer] Other 08-21-2022 14:30-0400 SaO2% (BldA) [Mass fraction] 96 % Carlene Kasper Other [employer] Other 08-21-2022 14:30-0400 Systolic blood pressure 124 mm[Hg] Carlene Kasper Other [employer] Other 07-31-2022 07:25-0500 Blood Pressure Location Katia SAMUELS [facility] 07-31-2022 07:25-0500 Diastolic blood pressure 89 mm[Hg] Katia SAMUELS [facility] 07-31-2022 07:25-0500 Heart rate 70 /min Katia SAMUELS [facility] 07-31-2022 07:25-0500 Respiratory rate 16 /min Katia SAMUELS [facility] 07-31-2022 07:25-0500 Systolic blood pressure 130 mm[Hg] Katia SAMUELS [facility] 07-25-2022 09:45-0500 Body height 187.96 cm Margarito Valentine Other [employer] Other 07-25-2022 09:45-0500 Body mass index (BMI) [Ratio] 26.32 kg/m2 Margarito Valentine Other [employer] Other 07-25-2022 09:45-0500 Body temperature 96.2 [degF] Margarito Valentine Other [employer] Other 07-25-2022 09:45-0500 Body weight 92.99 kg Margarito Valentine Other [employer] Other 07-25-2022 09:45-0500 Diastolic blood pressure 60 mm[Hg] Margarito Valentine Other [employer] Other 07-25-2022 09:45-0500 SaO2% (BldA) [Mass fraction] 97 % Margarito Valentine Other [employer] Other 07-25-2022 09:45-0500 Systolic blood pressure 110 mm[Hg] Margarito Valentine Other [employer] Other 07-03-2022 07:34-0500 Body temperature 98.9 [degF] MD Stanley Emerson Work Phone: [facility] 07-03-2022 07:34-0500 Diastolic blood pressure 91 mm[Hg] MD Stanley Emerson Work Phone: [facility] 07-03-2022 07:34-0500 Heart rate 87 /min MD Stanley Emerson Work Phone: [facility] 07-03-2022 07:34-0500 Respiratory rate 18 /min MD Stanley Emerson Work Phone: [facility] 07-03-2022 07:34-0500 SaO2% (BldA) [Mass fraction] 94 % MD Stanley Emerson Work Phone: [facility] 07-03-2022 07:34-0500 Systolic blood pressure 159 mm[Hg] MD Stanley Emerson Work Phone: [facility] 07-03-2022 05:46-0500 Body weight 94 kg MD Stanley Emerson Work Phone: [facility] 07-02-2022 16:27-0500 Inhaled oxygen flow rate 6 L/min MD Stanely Emerson Work Phone: [facility] 07-02-2022 10:06-0500 Body height 185.42 cm MD Stanley Emerson Work Phone: [facility] 07-02-2022 10:06-0500 Body mass index (BMI) [Ratio] 27.3 kg/m2 MD Stanley Emerson Work Phone: [facility] 06-19-2022 10:00-0500 Body height 187.96 cm Margarito Valentine Other [employer] Other 06-19-2022 10:00-0500 Body mass index (BMI) [Ratio] 26.32 kg/m2 Margarito Valentine Other [employer] Other 06-19-2022 10:00-0500 Body temperature 97.8 [degF] Margarito Valentine Other [employer] Other 06-19-2022 10:00-0500 Body weight 92.99 kg Margarito Valentine Other [employer] Other 06-19-2022 10:00-0500 Diastolic blood pressure 68 mm[Hg] Margarito Valentine Other [employer] Other 06-19-2022 10:00-0500 SaO2% (BldA) [Mass fraction] 95 % Margarito Valentine Other [employer] Other 06-19-2022 10:00-0500 Systolic blood pressure 108 mm[Hg] Margarito Valentine Other [employer] Other 06-12-2022 13:07-0500 Body height 187.96 cm MD Stanley Emerson Work Phone: [facility] 06-12-2022 13:07-0500 Body weight 93.44 kg MD Stanley Emerson Work Phone: [facility] 06-06-2022 12:00-0500 Body height 187.96 cm Margarito Valentine Other [employer] Other 06-06-2022 12:00-0500 Body mass index (BMI) [Ratio] 26.32 kg/m2 Margarito Valentine Other [employer] Other 06-06-2022 12:00-0500 Body temperature 97.2 [degF] Margarito Valentine Other [employer] Other 06-06-2022 12:00-0500 Body weight 92.99 kg Margarito Valentine Other [employer] Other 06-06-2022 12:00-0500 Diastolic blood pressure 70 mm[Hg] Margarito Valentine Other [employer] Other 06-06-2022 12:00-0500 SaO2% (BldA) [Mass fraction] 98 % Margarito Topetesarina Other [employer] Other 06-06-2022 12:00-0500 Systolic blood pressure 108 mm[Hg] Margarito Serge Other [employer] Other 06-04-2022 12:00-0500 Body height 187.96 cm Azcelestino Bakhous Other [employer] Other 06-04-2022 12:00-0500 Body mass index (BMI) [Ratio] 26.42 kg/m2 Aziz Bakhous Other [employer] Other 06-04-2022 12:00-0500 Body temperature 96.6 [degF] Aziz Bakhous Other [employer] Other 06-04-2022 12:00-0500 Body weight 93.35 kg Aziz Bakhous Other [employer] Other 06-04-2022 12:00-0500 Diastolic blood pressure 70 mm[Hg] Aziz Bakhous Other [employer] Other 06-04-2022 12:00-0500 Respiratory rate 20 /min Aziz Bakhous Other [employer] Other 06-04-2022 12:00-0500 SaO2% (BldA) [Mass fraction] 98 % Aziz Bakhous Other [employer] Other 01-10-2023 12:00-0500 Systolic blood pressure 100 mm[Hg] Celia Griffin Other [facility] [employer] Other 06-03-2022 15:38-0500 Body height 187.96 cm Stanley Emerson Work Phone: formerly [facility] 250 DO Work Phone: 06-03-2022 15:38-0500 Body mass index (BMI) [Ratio] 26.45 kg/m2 Stanley Emerson Work Phone: formerly [facility] 250 DO Work Phone: 06-03-2022 15:38-0500 Body surface area Derived from formula 2.2 m2 Stanley Emerson Work Phone: formerly [facility] 250 DO Work Phone: 06-03-2022 15:38-0500 Body weight 93.44 kg Stanley Emerson Work Phone: formerly [facility] 250 DO Work Phone: 06-03-2022 15:38-0500 Diastolic blood pressure 78 mm[Hg] Stanley Emerson Work Phone: formerly [facility] 250 DO Work Phone: 06-03-2022 15:38-0500 Heart rate 71 /min Stanley Emerson Work Phone: formerly [facility] 250 DO Work Phone: 06-03-2022 15:38-0500 Systolic blood pressure 106 mm[Hg] Stanley Emerson Work Phone: formerly [facility] 250 DO Work Phone: 05-22-2022 11:53-0500 Body temperature 98.8 [degF] MD Stanley Emerson Work Phone: [facility] 05-22-2022 11:53-0500 Diastolic blood pressure 72 mm[Hg] MD Stanley Emerson Work Phone: [facility] 05-22-2022 11:53-0500 Heart rate 78 /min MD Stanley Emerson Work Phone: [facility] 05-22-2022 11:53-0500 Respiratory rate 16 /min MD Stanley Emerson Work Phone: [facility] 05-22-2022 11:53-0500 SaO2% (BldA) [Mass fraction] 97 % MD Stanley Emerson Work Phone: [facility] 05-22-2022 11:53-0500 Systolic blood pressure 108 mm[Hg] MD Stanley Emerson Work Phone: [facility] 05-22-2022 06:02-0500 Body weight 88.8 kg MD Stanley Emerson Work Phone: [facility] 05-21-2022 11:48-0500 63 1 Stanley Emerson Work Phone: formerly [facility] 250 DO Work Phone: Comment on above: [id number] 05-17-2022 12:08-0500 Body height 187.96 cm MD Stanley Emerson Work Phone: [facility] Encounters Encounter Date Encounter Type Care Provider Facility Start: 09-18-2023 Bradyarrhythmia MD Stanley billingsley Work Phone: [facility] Start: 09-18-2023 End: 09-18-2023 ambulatory MD Stanley Emerson Work Phone: [facility] Work Phone: Start: 09-18-2023 End: 09-18-2023 Patient encounter procedure MD Stanley Emerson Work Phone: [facility] Work Phone: Start: 09-11-2023 End: 09-12-2023 ambulatory Katia SAMUELS Facility:[facility] Start: 09-11-2023 End: 09-11-2023 Patient encounter procedure Katia SAMUELS [facility] Start: 08-18-2023 End: 08-18-2023 ambulatory Margarito Valentine Facility:[facility] Start: 08-18-2023 End: 08-18-2023 ambulatory MD Stanley Emerson Work Phone: [facility] Work Phone: Start: 08-18-2023 End: 08-18-2023 Patient encounter procedure MD Stanley Emerson Work Phone: [facility]-CT Scan [place] Work Phone: Start: 08-15-2023 End: 08-16-2023 ambulatory Katia SAMUELS Facility:[facility] Start: 08-15-2023 End: 08-15-2023 Patient encounter procedure Katia SAMUELS [facility] Start: 08-04-2023 End: 08-04-2023 ambulatory STANLEY EMERSON Not Available Start: 07-01-2023 End: 07-02-2023 ambulatory Katia SAMUELS Facility:[facility] Start: 06-30-2023 End: 07-01-2023 ambulatory Katia SAMUELS Facility:[facility] [place] Start: 06-30-2023 End: 06-30-2023 Patient encounter procedure Katia SAMUELS [facility] Start: 06-16-2023 End: 06-17-2023 ambulatory Katia SAMUELS Facility:[facility] [place] Start: 06-16-2023 End: 06-16-2023 Patient encounter procedure Katia SAMUELS [facility] Start: 06-10-2023 End: 06-11-2023 ambulatory Katia SAMUELS Facility:[facility] Start: 06-10-2023 End: 06-10-2023 Patient encounter procedure Katia SAMUELS [facility] Start: 05-28-2023 End: 05-28-2023 ambulatory STANLEY EMERSON Not Available Start: 05-12-2023 End: 05-12-2023 ambulatory STANLEY EMERSON Not Available Start: 05-06-2023 End: 05-06-2023 ambulatory Aziz Bakhous Other [employer] Other Start: 05-06-2023 Telephone encounter Aziz Bakhous [facility] Start: 04-16-2023 End: 04-16-2023 ambulatory Aziz Bakhous Other [employer] Other Start: 04-16-2023 Telephone encounter Aziz Bakhous [facility] Start: 04-15-2023 End: 04-15-2023 ambulatory Aziz Bakhous Other [employer] Other Start: 04-15-2023 Office outpatient vi sit 25 minutes Aziz Bakhous [facility] Start: 04-08-2023 End: 04-08-2023 ambulatory Teo Stokes Facility:[facility] Start: 04-08-2023 End: 04-08-2023 ambulatory MD Stanley Emerson Work Phone: [facility] Work Phone: Start: 04-08-2023 End: 04-08-2023 Patient encounter procedure MD Stanley Emerson Work Phone: [facility]-Lab [facility] Start: 03-11-2023 End: 03-12-2023 ambulatory Katia SAMUELS Facility:[facility] Start: 03-11-2023 End: 03-11-2023 Lab Drop off Katia R SAMUELS [facility] Start: 03-11-2023 End: 03-11-2023 Patient encounter procedure Katia Hall SAMUELS [facility] Start: 01-22-2023 Office outpatient vi sit 25 minutes Stanley Emerson Work Phone: formerly [facility] 250 DO Work Phone: Start: 01-22-[address] Teo Stokes Facility: Start: 12-25-2022 End: 12-26-2022 ambulatory Katia SAMUELS Facility:[facility] Start: 12-25-2022 End: 12-25-2022 Patient encounter procedure Katia Isabel SAMUELS [facility] Start: 12-10-2022 End: 12-11-2022 ambulatory Katia SAMUELS Facility:[facility] Start: 12-10-2022 End: 12-10-2022 Lab Drop off Katia R SAMUELS [facility] Start: 12-10-2022 End: 12-11-2022 ambulatory Katia SAMUELS Facility:[facility] Start: 12-10-2022 End: 12-10-2022 Patient encounter procedure Katia R SAMUELS [facility] Start: 10-04-2022 End: 10-05-2022 ambulatory Katia R ARLENE Facility:[facility] Start: 10-04-2022 End: 10-04-2022 Patient encounter procedure Katia R SAMUELS [facility] Start: 09-18-2022 End: 09-19-2022 ambulatory Katia SAMUELS Facility: [facility] Start: 09-18-2022 End: 09-18-2022 Patient encounter procedure Katia SAMUELS [facility] Start: 09-15-2022 End: 09-15-[address] STANLEY EMERSON . Facility:[facility] Start: 09-12-2022 End: 09-12-[address] STANLEY EMERSON . Facility:[facility] Start: 09-08-2022 [place]counter [place]ced[place] Start: 09-04-2022 End: 09-05-[address] STANLEY EMERSON . Facility:[facility] Start: 09-04-2022 Encounter for preprocedural cardiovascular examination DR KATIA SAMUELS . [facility] Start: 09-02-2022 End: 09-03-[address] STANLEY EMERSON . Facility: Start: 09-02-2022 End: 09-03-2022 Encounter for preprocedural laboratory examination DR STANLEY EMERSON . Facility:[facility] Start: 09-02-2022 End: 09-03-[address] STANLEY EMERSON . Facility:[facility] Start: 09-02-2022 End: 09-03-2022 Encounter for preprocedural cardiovascular examination DR STANLEY EMERSON . Facility:[facility] Start: 08-21-2022 End: 08-21-2022 ambulatory Carlene Kasper Other [employer] [facility] [employer] Other Start: 08-21-2022 Follow-up encounter Carlene Dickerson [facility] Start: 08-16-2022 End: 08-16-2022 ambulatory MD Stanley Emerson Work Phone: [facility] Work Phone: Start: 08-16-2022 End: 08-16-2022 Patient encounter procedure MD Stanley Emerson Work Phone: [facility]-CT Scan [place] Work Phone: Start: 07-31-2022 End: 07-31-2022 Patient encounter procedure Katia Hall SAMUELS [facility] Start: 07-25-2022 End: 07-25-2022 ambulatory Margarito Valentine Other [employer] Other Start: 07-25-2022 Postop follow up vis it related to original px Margarito Valentine [facility] Start: 07-24-2022 End: 07-24-2022 ambulatory MD Stanley Emerson Work Phone: [facility] Work Phone: Start: 07-24-2022 End: 07-24-2022 Patient encounter procedure MD Stanley Emerson Work Phone: [facility]-MRI [place] Work Phone: Start: 07-02-2022 End: 07-03-2022 Evaluation and management of inpatient MD Stanley Emerson Work Phone: [facility] Work Phone: Start: 06-21-2022 End: 06-21-2022 Patient encounter procedure MD Stanley Emerson Work Phone: [facility]-Pre-Surgical Testing Work Phone: Start: 06-19-2022 End: 06-19-2022 ambulatory Margarito Valentine Other [employer] Other Start: 06-19-2022 Office outpatient vi sit 25 minutes Margarito Valentine [facility] Start: 06-12-2022 End: 06-12-2022 ambulatory MD Stanley Emerson Work Phone: [facility] Work Phone: Start: 06-12-2022 End: 06-12-2022 Patient encounter procedure MD Stanley Emerson Work Phone: [facility]-CT Scan [place] Work Phone: Start: 06-11-2022 End: 06-11-2022 Patient encounter procedure HEATHER SCHWAB [facility] Start: 06-06-2022 End: 06-06-2022 ambulatory Margarito Valentine Other [facility] [employer] Other Start: 06-06-2022 Office outpatient vi sit 25 minutes Margarito Valentine [facility] Start: 06-04-2022 End: 06-04-2022 ambulatory Azcelestino Rothmans Other [facility] [employer] Other Start: 06-04-2022 Office outpatient vi sit 25 minutes Aziz Bakcatherines [facility] Start: 06-03-2022 Office outpatient vi sit 25 minutes Stanley Emerson Work Phone: formerly [facility] 250 DO Work Phone: Start: 06-03-[address] Stanley Emersno Facility:[id number] Start: 05-21-[address] Stanley Emerson Facility:[id number] Start: 05-20-[address] Stanley Emerson Facility:[id number] Start: 05-19-[address] Teo Stokes Facility:[id number] Start: 05-18-[address] Teo Stokes Facility:[id number] Start: 05-17-[address] Stanley Emerson Facility:[id number] Start: 05-17-2022 Bradyarrhythmia MD Stanley billingsley Work Phone: [facility] Start: 05-17-[address] Teo Melloim Facility:[id number] Start: 05-16-2022 End: 05-22-2022 Encounter for preprocedural cardiovascular examination MD Stanley Emerson Work Phone: [facility] Start: 05-16-2022 End: 05-22-2022 Evaluation and management of inpatient MD Stanley Emerson Work Phone: [facility] Work Phone: Start: 05-16-2022 End: 05-16-[address] STANLEY EMERSON . Facility:[facility] Start: 05-15-2022 End: 05-16-[address] STANLEY EMERSON . Facility:[facility] Start: 01-04-2022 End: 01-04-[address] STANLEY EMERSON . Facility: Patient encounter status Stanley Emerson Work Phone: formerly [facility] 250 DO Work Phone: End: 01-22-2023 Patient encounter status Stanley Emerson Work Phone: formerly [facility] 250 DO Work Phone: Procedures Date Procedure [...] Teo Stokes, Status: Pen, Time: 11:50 AM [facility] 250 DO Work Phone: Start: 10-03-2023 ambulatory Ambulatory Facility:[facility] Start: 04-08-2023 Bacteria identified in Urine by Culture [facility] Start: 12-10-2022 FUV, Provider: Teo Stokes, Status: Pen, Time: 10:10 AM [facility]UV, Provider: Teo Stokes, Status: Pen, Time: 10:10 AM [facility] 250 DO Work Phone: Start: 07-24-2022 MR Abdomen WO and W contrast IV [facility] Start: 07-24-2022 MRI of abdomen with contrast MR abdomen wo/w con [facility] Start: 07-03-2022 [facility] Start: 07-02-2022 Fluoroscopy of Aorta and Bilateral Lower Extremity Arteries using Low Osmolar Contrast Fluoroscopy of Aorta and Bilateral Lower Extremity Arteries using Low Osmolar Contrast [facility] Start: 07-02-2022 Restriction of Abdominal Aorta with Intraluminal Device, Percutaneous Approach Restriction of Abdominal Aorta with Intraluminal Device, Percutaneous Approach [facility] Start: 05-22-2022 [facility] Start: 05-20-2022 Evaluation procedure [facility] Start: 05-19-2022 [facility] Start: 05-17-2022 End: 05-17-2022 [facility] Start: 05-16-2022 Referral to partner cco [facility] Start: 05-16-2022 Referral to vascular surgeon [facility] Start: 05-16-2022 Hospital admission [facility] Patient Education [facility] Work Phone: Patient referral [facility] Work Phone: [facility] Immunizations Immunization Date Immunization Notes Care Provider Markus russell 03-29-2022 Pfizer COVID-19 Vac Bivalent 30 MCG/0.3ML Intramuscular Suspension Stanley Emerson Work Phone: [facility] 03-16-2022 influenza virus vacc ine, unspecified formulation Katia ARLENE [facility] 03-16-2022 influenza, seasonal, injectable Stanley Emerson Work Phone: [facility] 250 DO Work Phone: 03-06-2022 Fluzone High-Dose Quadrivalent 0.7 ML Intramuscular Suspension Prefilled Syringe Stanley Emerson Work Phone: [facility] 250 DO Work Phone: 03-06-2022 influenza virus vacc ine, unspecified formulation HEATHER SCHWAB [facility] 05-11-2022 Comirnaty 30 MCG/0.3 ML Intramuscular Suspension Stanley Emerson Work Phone: [facility] 250 DO Work Phone: 10-03-2021 COVID-19 Taniya Mckeon (Pfizer) MD Stanley Emerson Work Phone: [facility] 10-03-2021 SARS-CoV-2 mRNA (loanaalkrsz-acgb-vxbhsx e) vaccine HEATHER SCHWAB [facility] 04-23-2021 pneumococcal polysaccharide vaccine, 23 valent Stanley Emerson Work Phone: [facility] 02-22-2021 influenza virus vacc ine, unspecified formulation Katia SAMUELS [facility] 02-22-2021 influenza, injectabl e, quadrivalent, preservative free Stanley Emerson Work Phone: [facility] 250 DO Work Phone: 02-21-2021 Pfizer-BioNTech COVI D-19 Vacc 30 MCG/0.3ML Intramuscular Suspension Stanley Emerson Work Phone: [facility] Comment on above: Result Comment: 2022: [id number] 07-28-2020 Pfizer-BioNTech COVI D-19 Vacc 30 MCG/0.3ML Intramuscular Suspension Stanley Emerson Work Phone: [facility] 07-07-2020 Pfizer-BioNTech COVI D-19 Vacc 30 MCG/0.3ML Intramuscular Suspension Stanley Emerson Work Phone: [facility] 02-22-2020 influenza virus vacc ine, unspecified formulation HEATHER SHCWAB [facility] 02-22-2020 Seasonal, quadrivale nt, recombinant, injectable influenza vaccine, preservative free Stanley Singhyer Work Phone: -[facility] 250 DO Work Phone: Payers Date Payer Category Payer Self-pay 2017 Medicare [id number] 1959 Medicare [id number] 1959 Private Health Insurance [id number] 1943 Unknown [id number] 2.16.840.1.414867.3.579.2.593 1943 Unknown [id number] 2.16.840.1.351670.3.579.2.593 1943 Unknown [id number] 2.16.840.1.056040.3.579.2.593 1943 Unknown [id number] 2.16.840.1.630034.3.579.2.593 1943 Unknown [id number] 2.16.840.1.262953.3.579.2.593 1943 Unknown [id number] 2.16.840.1.200529.3.579.2.593 1943 Unknown [id number] 2.16.840.1.095955.3.579.2.593 1943 Unknown [id number] 2.16.840.1.352006.3.579.2.593 1943 Unknown [id number] 2.16.840.1.646107.3.579.2.356 1943 Unknown [id number] 2.16.840.1.268697.3.579.2.356 1943 Unknown [id number] 2.16.840.1.145070.3.579.2.356 1943 Unknown [id number] 2.16.840.1.784599.3.579.2.356 1943 Unknown [id number] 2.16.840.1.814499.3.579.2.356 1943 Unknown [id number] 2.16.840.1.851807.3.579.2.356 1943 Unknown [id number] 2.16.840.1.637696.3.579.2.356 1943 Unknown [id number] 2.16840.1.814947.3.579.2.356 1943 Unknown [id number] 2.840.1.190077.3.579.2.125 9 1943 Unknown [id number] 2.840.1.015450.3.579.2.125 9 1943 Unknown [id number] 2.840.1.784488.3.579.2.125 9 1943 Unknown [id number] 2.840.1.748103.3.579.2.727 1943 Unknown [id number] 2.840.1.705116.3.579.2.727 1943 Unknown [id number] 2.840.1.746171.3.579.2.727 1943 Unknown [id number] 2.16.840.1.629339.3.579.2.727 1943 Unknown [id number] 2.16.840.1.584694.3.579.2.727 1943 Unknown [id number] 2.16.840.1.745050.3.579.2.727 1943 Unknown [id number] 2.16840.1.332807.3.579.2.727 1943 Unknown [id number] 2.16.840.1.917291.3.579.2.727 1943 Unknown [id number] 2.16.840.1.605239.3.579.2.727 1943 Unknown [id number] 2.16.840.1.149116.3.579.2. 1943 Unknown [id number] 2.16.840.1.425829.3.579.2.72 1943 Unknown [id number] 2.16.840.1.822331.3.579.2. 1943 Unknown [id number] 2.16.840.1.527481.3.579.2.72 1943 Unknown [id number] 2.16.840.1.972753.3.579.2.72 Medicare Medicare Nonpatient [id number] Unknown Unknown [facility] [id number] Unknown [id number] 2.16840.1.709611.3.579.2.531 Unknown [id number] 2.16840.1.573372.3.579.2.531 Social History Date Type Detail Facility Daily caffeine consumption Daily caffeine consumption formerly [facility] 250 DO Work Phone: Comment on above: 3-4 cups coffee kellen y; 05/17/23 quit; 1/2 dozen cigarettes ; Start: 06-11-2022 End: 03-11-2023 Tobacco smoking status Heavy tobacco smoker (finding) [facility] Sex Assigned At Male [facility] Start: 05-17-2022 [facility] Start: 07-08-1946 Sex Assigned At Male F [facility] Start: 07-02-2022 End: 07-02-2022 Tobacco smoking status NHIS Ex-smoker (finding) [facility] Tobacco smoking status Never [facility] Medical Equipment Procedure Code Equipment Code Equipment Origin al Text Equipment Identifier Dates Percutaneous endovascular repair of abdominal aortic aneurysm (AAA) Abdominal aorta endovascular stent-graft ()[id number] FDA Start: 07-02-2022 Percutaneous endovascular repair of abdominal aortic aneurysm (AAA) Abdominal aorta endovascular stent-graft ()[id number] FDA Start: 07-02-2022 Percutaneous endovascular repair of abdominal aortic aneurysm (AAA) Abdominal aorta endovascular stent-graft ()[id number] FDA Start: 07-02-2022 Percutaneous endovascular repair of abdominal aortic aneurysm (AAA) Soft-tissue/mesh anchor, non-bioabsorbable ()[id number] FDA Start: 07-02-2022 Goals Date Patient Goal Desired Activity /State Functional Status Date Assessment Result Facility 06-30-2023 Functional Status N/A [facility] 06-10-2023 Functional Status N/A [facility] 03-11-2023 Functional Status N/A [facility] 12-10-2022 Functional Status N/A [facility] 09-18-2022 Functional Status N/A [facility] 07-31-2022 Functional Status N/A [facility] 07-03-2022 Functional status Patient at Baseline [facility] Work Phone: 06-11-2022 Functional Status N/A [facility] 05-16-2022 Functional status Patient Not at Baseline [facility] Work Phone: Mental Status Date Assessment Result Facility 07-03-2022 Cognitive function Cognitive Sta tus Patient at Baseline [facility] Work Phone: 05-16-2022 Cognitive function Cognitive Sta tus Patient at Baseline [facility] Work Phone: Clinical Notes 06-04-2022 to [...] Follow these instructions at home: Medicines Take ssbu-kvv-hafkyfg and prescription medicines only as told by [...] provider. Document Revised: 01/31/2021 Document Reviewed: 01/31/2021 [employer] Patient Education 2022 [employer]. Follow Up Care 05/06/2023 11:11:29 With:ARLENE CASILLAS, ADRIA Sterling Address: [facility] [address], [place] [address] [phone] When: Unknown Comments:1 day for catheter removal [facility] 06-10-2023 Note [id number] [facility] 06-10-2023 Hospital Discharg e instructions Patient [...] underwear to absorb moisture and keep skin fitter. 6. Keep the drainage bag below the [...] SAMUELS Address: [facility] [address] [place] [address]- Business (1) When:06/24/2023 15:15:55 Comments:for zapien removal [facility] 06-10-2023 Note Custom Rezum Post-Procedure Instructions [...] using a circul (more content not included)... [facility] 05-06-2023 Evaluation note Encounter Date Diagnosis Assessment Notes Apr, Primary hypertension (ICD-10 - I10) [employer] Other 11-21-2023 Evaluation note* Encounter Date Diagnosis [...] supplement. I asked the patient to continue bgmt-tba-pjbmwzd iron supplement once or twice daily Mar, Primary hypertension (ICD-10 - I10) BP is elevated. Will start Norvasc 5 mg PO daily. i asked the patient to monitor Bp closely with tapering steroid dose [employer] Other 10-17-2023 Hospital Discharge instructions Patient Education [...] including vitamins, herbs, eye drops, creams, and qlhe-ndy-wfqmecn medicines. Any problems you or family members [...] provider tells you to take them. Taking mvrp-fnj-cpjlvaz medicines, vitamins, herbs, and supplements. Surgery safety [...] provider. Document Revised: 02/05/2022 Document Reviewed: 02/05/2022 [employer] Patient Education 2022 [employer] 03/11/2023 14:15:06 Benign Prostatic Hyperplasia Benign Prostatic [...] urethra. Follow these instructions at home: Take fgdf-cvz-updfjqy and prescription medicines only as told by [...] provider. Document Revised: 11/28/2021 Document Reviewed: 11/28/2021 [employer] Patient Education 2022 [employer]. Follow Up Care 02/07/2023 16:01:50 With:ARLENE CASILLAS, Katia Hall, URL Address: [facility] [address] , [place] [address]- When:Within 3 Month(s) Comments:Sched cysto/FISH/Cytol/BT check [facility] 10-17-2023 Evaluation + Plan note Diagnostic Tests Pending * UroVysion Fish and Urine Cyto ([facility]) 03/11/23 [facility]08-15-2023 Note [id number]:[id number] 12-10-2022 Evaluation + Plan note Diagnostic Tests Pending * UroVysion Fish and Urine Cyto ([facility]) 12/10/22 [facility]07-18-2023 Hospital Discharge instructions Patient Education 12/10/2022 [...] if anything looks unusual. Men with a lkwflg-rqnn-emikme risk for skin cancer may want to see a shank skinner (boat builder) for an annual body check. What are the benefits of screening? Cancer screening is done to look for cancer in the very early stages, before it spreads and becomesharder to treat and before you would start to notice symptoms. Finding cancer early improves the chances of successful treatment. It may save your life. Where to find more information [employer]: www.cancer.org Centers for Disease Control and Prevention: www.cdc.gov National Cancer Rural [place]: www.cancer.gov Contact a health care provider if: [...] provider. Document Revised: 10/08/2021 Document Reviewed: 04/07/2020 [employer] Patient Education 2022 [employer]. Follow Up Care 11/15/2022 14:27:10 With:ARLENE CASILLAS, Katia Hall, URL Address: [facility] [address] , [place] [address]- When: Unknown [facility] 04-26-2023 Hospital Discharge instructions Patient Education 09/18/2022 [...] cells. Follow these instructions at home: Take gtgb-mhr-vxiixgi and prescription medicines only as told by [...] is important. Where to find more information [employer] (ACS): cancer.org National Cancer [place] (NCI): cancer.gov Contact a health care provider [...] provider. Document Revised: 04/22/2022 Document Reviewed: 04/22/2022 [employer] Patient Education 2022 [employer]. Follow Up Care 08/26/2022 14:12:46 With:ARLENE CASILLAS, Katia Hall, URL Address: [facility] [address] , [place] [address]- When: Unknown [facility] 04-10-2023 NoteEXAM: XR CHEST 2 V HISTORY: Pre-surgery evaluation COMPARISON: None. TECHNIQUE: PA and lateral views of the chest. FINDINGS: The cardiomediastinal silhouette is normal. No focal consolidation is identified. There is no pneumothorax. No pleural effusion is noted. The osseous structures are intact. IMPRESSION: No acute cardiopulmonary process. Electronically authenticated by: CORKY FORD Date: 2022-09-02 14:17[facility]03-29-2023 Evaluation note* Encounter Date Diagnosis Assessment Notes [...] have his bladder tumor removal as scheduled. [employer] Other 03-08-2023 Evaluation + Plan note Diagnostic Tests Pending * UroVysion Fish and Urine Cyto ([facility]) 07/31/22 [facility] 03-08-2023 Hospital Discharge instructions Patient Education 07/31/2022 [...] including vitamins, herbs, eye drops, creams, and cwmn-jck-sybchax medicines. Any problems you or family members [...] provider tells you to take them. Taking ynzw-esy-ibbwdog medicines, vitamins, herbs, and supplements. Tests You [...] 03/08/2010 Document Revised: 12/11/2018 Document Reviewed: 12/11/2018 [employer] Patient Education 2020 [employer] Follow Up Care 07/25/2022 10:56:51 With:RALENE CASILLAS, Katia Hall, URL Address: [facility] [address], [place] [address]- When: Unknown [facility] 03-02-2023 Evaluation note* Encounter Date Diagnosis Assessment [...] some bladder issues. I did call the [employer]. The device is compatible up to 3 Maggi for MRI. I explained this to the family and the patient. Jul, Other specified postprocedural states (ICD-10 - Z98.890) Jul, Personal history of other diseases of the circulatory system (ICD-10 - Z86.79) [employer] Other [facility] Evaluation note* Encounter Date Diagnosis Assessment Notes [...] plan to do this percutaneously under MAC. [employer] Other 01-17-2023 Hospital Discharge instructions Patient Education [...] including vitamins, herbs, eye drops, creams, and mhhl-abn-taqdvzo medicines. Any problems you or family members [...] provider tells you to take them. ?Taking qofj-gyq-notkzkw medicines, vitamins, herbs, and supplements. Follow instructions [...] Follow these instructions at home: Medicines Take ynxs-dqy-woryzso and prescription medicines only as told by [...] 05/09/2001 Document Revised: 05/04/2019 Document Reviewed: 05/04/2019 [employer] Patient Education 2020 [employer] Follow Up Care 05/22/2022 13:37:28 With:[facility] Address: [address] [place] [address] Business (1) When: Unknown Comments:our discovery guide will be contacting you for follow-up [facility] 01-12-2023 Evaluation note* Encounter Date Diagnosis Assessment [...] to proceed all his questions were addressed. [employer] Other 01-10-2023 Evaluation note* Encounter Date Diagnosis [...] (ICD-10 - E78.5) Patient is on statin [employer] Other Evaluation + Plan note No data available for this section [facility] evaluation + Plan note Future Appointments Appointment Date:10/04/2022 10:00:00 AM Scheduled Provider: Location:[facility] Appointment Type:URO Nurse Visit [facility] + Plan note Future Appointments Appointment Date:06/16/2023 10:00:00 AM Scheduled Provider: Location:[facility] Appointment Type:URO Nurse Visit Appointment Date:06/30/2023 01:30:00 PM Scheduled Provider:[facility]UELS [facility]O Office Visit Diagnostic Tests Pending * UroVysion Fish and Urine Cyto ([facility]) [facility]10[facility]23 [facility] Future Appointments Appointment Date:06/30/2023 01:30:00 PM Scheduled Provider:Katia SAMUELS MD Location:[facility] Appointment Type:URO Office Visit [facility] evaluation + Plan note Future Appointments Appointment Date:07/01/2023 08:30:00 AM Scheduled Provider: Location:[facility] Appointment Type:URO Nurse Visit [facility] evaluation + Plan note Future Appointments Appointment Date:09/09/2023 02:15:00 PM Scheduled Provider:Katia SAMUELS MD Location:[facility] Appointment Type:URO Procedure 15 min [facility] Evaluation + Plan note Future Appointments Appointment Date:10/07/2023 02:45:00 PM Scheduled Provider:Katia SAMUELS MD Location:[facility] Appointment Type:URO Procedure 15 min [facility] Evaluation note* Diagnosis Onset Date Resolution Status [...] tract infection) acute Vitamin B 12 deficiency [facility] Work Phone: Evaluation noteNo assessment information available [facility] Work Phone: Evalumkkjj noteNo InformationN[facility] [employer] Other Hisjasv general Narrative - Reported* Type Description Date [...] INJ URY, 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, 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 [employer] Other Hisgbvp general Narrative - Reported* Type Description Date [...] INJ URY, 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, 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 [employer] Other Hishwcq general Narrative - Reported* Type Description Date [...] 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 Hospitalization History SEE ABOVE [employer] Other Hospital Discharge instructions No data available for this section [facility] Progress note No data available for this section [facility] Summary Purpose Family History Unknown Family Member Name Dates Details Family [...] history of mental disorder Unknown Advance Directives Advance Directive Response Recorded Date/ Time Advance [...] i71.40 e78.5 Chief Complaint I71.4 Chief Complaint I71.4 1 YR F/U AAA; CTA AT [facility] Chief Complaint * ALEX ANDERSON is being [...] section and content) DATE CREATED AUTHOR 05/12/2021 [facility] Special[facility] DATE CREATED AUTHOR AUTHOR'S ORGANIZ ATION 09/23/2022 [facility] DATE CREATED AUTHOR AUTHOR'S ORGANIZ ATION 01/23/2023 [facility] DATE CREATED AUTHOR AUTHOR'S ORGANIZ ATION 01/23/2023 [employer] DATE CREATED AUTHOR AUTHOR'S ORGANIZ ATION 08/05/2023 [facility] Specialists EPIC DATE CREATED AUTHOR AUTHOR'S ORGANIZ ATION 08/22/2023 [place] DATE CREATED AUTHOR AUTHOR'S ORGANIZ ATION 09/16/2023 [facility] Patient Care team informatio n (unrecognized section and content) Team Status: Inactive Member Role Status Dates Stanley Emerson MD Primary Care Provider Active Margarito Vlaentine MD Attending Provider Active Team Status: Inactive [...] August 18, 2023 End: August 18, 2023 Team Status: Inactive Member Role Status Dates Stanley Emerson MD Primary Care Provider Active Start: September 18, 2023 End: September 18, 2023 Margarito Valentine MD Attending Provider Active Start: September 18, 2023 End: September 18, 2023 REASON FOR VISIT (unrecogniz ed section and content) RENAL HOSP F/UDiscuss AAA re pairTo go over CTA results3 week f/u EVAR4 WK FOLLOW UP; CTA [facility] 08/16/22RENAL 6 month Follow upBPREFILL Goals (unrecognized [...] BE BASED ON THE PRIMARY CLINICAL RECORDS. [employer] [facility]. provides no warranty or guarantee of the accuracy or completeness of information in this document.
[2023-09-26 20:50] VITALS: BP 157/95; PULSE 78; O2SAT 95; BMI 29.5
--- NOTE | 2023-09-26 21:15 | ED.GENADUL1 ---
HPI HPI - General Adult General Chief complaint: Urogenital-Male Stated complaint: PLUGGED CATH Time Seen by Provider: 09/26/23 21:01 Source: patient Mode of arrival: walk-in Limitations: no limitations History of Present Illness HPI narrative: 78-year-old male presents here with a chief complaint of lower abdominal pressure. Patient has chronic Villarreal catheter placed. Villarreal catheter has been placed for approximately 1 year and a half. This actual catheter today has been in since August. Patient was complaining of pressure and pain and had no drainage at home. Son did try to irrigate. Patient presents here with increased lower abdominal tenderness.pt sees Dr. Samuels and follows up with him next week Related Data Home Medications ?Medication ?Instructions ?Recorded ?Confirmed acetaminophen 500 mg capsule 500 mg PO Q6H PRN fever or pain 04/13/23 07/30/23 albuterol sulfate 90 mcg/actuation 1 inh inhalation Q6H PRN 04/13/23 07/30/23 aerosol inhaler bronchospasm aspirin 81 mg tablet,delayed 81 mg PO DAILY 04/13/23 09/26/23 release (Ecotrin Low Strength) folic acid 1 mg tablet 1 mg PO DAILY 04/13/23 07/30/23 metoprolol tartrate 50 mg tablet 50 mg PO Q12H 04/13/23 07/30/23 multivitamin (Daily Multi-Vitamin 1 tab PO DAILY 04/13/23 07/30/23 tablet) simvastatin 20 mg tablet 20 mg PO DAILY 04/13/23 07/30/23 amlodipine 5 mg tablet mg 07/30/23 acetaminophen 325 mg tablet (Pain 650 mg PO Q6H PRN fever or pain 09/26/23 09/26/23 Relief (acetaminophen)) atorvastatin 40 mg tablet 40 mg PO DAILY 09/26/23 09/26/23 baclofen 10 mg tablet 10 mg PO TID 09/26/23 09/26/23 carbamazepine 400 mg 400 mg PO BID 09/26/23 09/26/23 tablet,extended release,12 hr clopidogrel 75 mg tablet 75 mg PO DAILY 09/26/23 09/26/23 dextromethorphan HBr 20 mg/15 mL 20 mg PO .EVERY 4 HR PRN cough 09/26/23 09/26/23 oral solution (Creomulsion Adult Formula) diazepam 5 mg tablet 5 mg PO Q6H PRN anxiety 09/26/23 09/26/23 duloxetine 60 mg capsule,delayed 60 mg PO DAILY 09/26/23 09/26/23 release fluticasone furoate 50 1 inh inhalation Q24H 09/26/23 09/26/23 mcg/actuation blister powder for inhalation furosemide 40 mg tablet 40 mg PO QAM PRN edema 09/26/23 09/26/23 levalbuterol tartrate 45 1 inh inhalation Q6H PRN shortness 09/26/23 09/26/23 mcg/actuation aerosol inhaler of breath lisinopril 10 mg tablet 10 mg PO DAILY 09/26/23 09/26/23 loratadine 10 mg tablet (Claritin) 10 mg PO DAILY 09/26/23 09/26/23 montelukast 10 mg tablet 10 mg PO DAILY 09/26/23 09/26/23 omeprazole 40 mg capsule,delayed 40 mg PO DAILY 09/26/23 09/26/23 release oxycodone 5 mg tablet 5 mg PO Q8H PRN pain 09/26/23 09/26/23 polyethylene glycol 3350 17 17 g PO DAILY 09/26/23 09/26/23 gram/dose oral powder (Miralax) pregabalin 100 mg capsule (Lyrica) 100 mg PO BID 09/26/23 09/26/23 spironolactone 25 mg tablet mg 09/26/23 terazosin 2 mg capsule 2 mg PO DAILY 09/26/23 09/26/23 verapamil 240 mg 24 hr 240 mg PO DAILY 09/26/23 09/26/23 capsule,extended release Allergies Allergy/AdvReac Type Severity Reaction Status Date / Time No Known Drug Allergies Allergy Verified 09/26/23 20:49 Opioid HPI Opioid Management Most Recent Opioid Data: Last Pain Scale 8 07/30/23 22:37 Review of Systems ROS Narrative All Systems are negative except as noted/marked.All systems reviewed and otherwise negative PFS PFS Social History Smoking status: Current every day smoker Exam Narrative Exam Narrative: All Systems are negative except as noted/marked.All systems reviewed and otherwise negative Nurses note and vital signs reviewed and patient is not hypoxic. General: The patient appears well and in no apparent distress. Patient is resting comfortably on cart. Skin: Warm, dry, no pallor noted. There is no rash noted. Head: Normocephalic, atraumatic Eye: Normal conjunctiva, no drainage, EOMI. PERRL Ears, Nose, Mouth, and Throat: oral mucosa is moist. Nares patent. Mouth without vesicles. Ear canals patent. Tm's without Erythema gu : Villarreal catheter in place GI: Normal bowel sounds, no tenderness to palpation, no masses appreciated. No rebound, guarding, or rigidity noted. Musculoskeletal: The patient has no evidence of calf tenderness, no pitting edema, symmetrical pulses noted bilaterally Neurological: A&O x4, normal speech Psychiatric: Cooperative Constitutional Vital Signs, click to edit/add: Last Vital Signs Pulse 78 09/26/23 20:50 Resp 16 09/26/23 20:50 BP 157/95 H 09/26/23 20:50 Pulse Ox 95 09/26/23 20:50 O2 Del Method Room Air 09/26/23 20:50 Course Vital Signs Vital signs: Vital Signs Pulse Rate 78 09/26/23 20:50 Respiratory Rate 16 09/26/23 20:50 Blood Pressure 157/95 H 09/26/23 20:50 Pulse Oximetry 95 09/26/23 20:50 Oxygen Delivery Method Room Air 09/26/23 20:50 Pulse Rate 78 09/26/23 20:50 Respiratory Rate 16 09/26/23 20:50 Blood Pressure 157/95 H 09/26/23 20:50 Pulse Oximetry 95 09/26/23 20:50 Oxygen Delivery Method Room Air 09/26/23 20:50 Medical Decision Making MDM Narrative Medical decision making narrative: Chief complaint lower abdominal pressure. He has a chronic Villarreal catheter in place. Nurses were able to irrigate. Villarreal catheter is now flowing easily. Patient feels much better and pressure is released. Patient follows up with Dr. Samuels next week. Patient and family members agree with plan of care and discharged home Differential Diagnosis Differential Diagnosis: Villarreal catheter issues, Medical Records Medical records reviewed: Yes I reviewed the patient's medical records Discharge Plan Discharge Stand Alone Forms: Portal Instructions Chief Complaint: Urogenital-Male Clinical Impression: Villarreal catheter problem Patient Disposition: Home, Self-Care Time of Disposition Decision: 21:14 Condition: Good Prescriptions / Home Meds: No Action albuterol sulfate 90 mcg/actuation HFA aerosol inhaler 1 inh INHALATION Q6H PRN (Reason: bronchospasm) folic acid 1 mg tablet 1 mg PO DAILY metoprolol tartrate 50 mg tablet 50 mg PO Q12H simvastatin 20 mg tablet 20 mg PO DAILY Hold Instructions: while taking ATBs aspirin [Ecotrin Low Strength] 81 mg tablet,delayed release (DR/EC) 81 mg PO DAILY multivitamin [Daily Multi-Vitamin] Tablet 1 tab PO DAILY acetaminophen 500 mg capsule 500 mg PO Q6H PRN (Reason: fever or pain) amlodipine 5 mg tablet atorvastatin 40 mg tablet 40 mg PO DAILY baclofen 10 mg tablet 10 mg PO TID carbamazepine 400 mg tablet extended release 12 hr 400 mg PO BID loratadine [Claritin] 10 mg tablet 10 mg PO DAILY clopidogrel 75 mg tablet 75 mg PO DAILY duloxetine 60 mg capsule,delayed release(DR/EC) 60 mg PO DAILY fluticasone furoate 50 mcg/actuation blister with device 1 inh inhalation Q24H lisinopril 10 mg tablet 10 mg PO DAILY montelukast 10 mg tablet 10 mg PO DAILY omeprazole 40 mg capsule,delayed release(DR/EC) 40 mg PO DAILY polyethylene glycol 3350 [Miralax] 17 gram/dose powder 17 g PO DAILY pregabalin [Lyrica] 100 mg capsule 100 mg PO BID terazosin 2 mg capsule 2 mg PO DAILY verapamil 240 mg capsule,ext rel. pellets 24 hr 240 mg PO DAILY acetaminophen [Pain Relief (acetaminophen)] 325 mg tablet 650 mg PO Q6H PRN (Reason: fever or pain) Creomulsion Adult Formula 20 mg/15 mL solution 20 mg PO .EVERY 4 HR PRN (Reason: cough) diazepam 5 mg tablet 5 mg PO Q6H PRN (Reason: anxiety) furosemide 40 mg tablet 40 mg PO QAM PRN (Reason: edema) levalbuterol tartrate 45 mcg/actuation HFA aerosol inhaler 1 inh inhalation Q6H PRN (Reason: shortness of breath) oxycodone 5 mg tablet 5 mg PO Q8H PRN (Reason: pain) spironolactone 25 mg tablet Print Language: Ukrainian Instructions: Villarreal Catheter Placement and Care (ED) Referrals: NICHOLAS EMERSON [Primary Care Provider] - 1 week Jeremy Samuels MD [Physician] - 1 week
== END 2023-09-26 21:34 | disposition home or self-care (01) ==
PROVIDERS: Emergency Provider Emergency Medicine; PCP Family Medicine
DX: T83.9XXA Unspecified complication of genitourinary prosthetic device, implant and graft, initial encounter (principal); Z79.899 Other long term (current) drug therapy; Z79.82 Long term (current) use of aspirin; F17.210 Nicotine dependence, cigarettes, uncomplicated
CPT/HCPCS: 99285

== ENCOUNTER 2023-09-29 21:22 | Emergency (ER) | payer MEDICARE, OTHER, SELFPAY ==
[2023-09-29 21:29] VITALS: BP 117/83; PULSE 90; TEMP 36.6; O2SAT 97; BMI 29.5
--- OUTSIDE RECORDS SUMMARY | 2023-09-29 21:37 | XMS_ITS | CCD ---
Author Organization [facility] Care Team Providers Care Account Administrator Name Role Phone Stanley Emerson Unavailable Unavailable Unavailable STANLEY EMERSON Primary Care Physician Unavail able MD Stanley Emerson Primary Care Provider [phone] MD Taz Barnes Admit Provider MD Margarito [...] Provider DO Bernabe Cr Attending Provider [phone] MD Margarito Valentine Attending Provider MD Margarito [...] Attending Provider MD Teo Stokes Referring Provider [phone] STANLEY EMERSON Attending Unavailable STANLEY EMERSON Attending Unavailable STANLEY EMERSON Attending Unavailable KATIA SAMUELS Referring Unavailable MD Stanley Emerson Primary Care Provider [phone] MD Margarito Valentine Attending Provider Margarito Valentine Admitting UnavailMargarito Lara Attending Unavailabl e Stanley Emerson Primary Care Unavailable Teo Stokes Referring Unavailable Stanley Emerson Primary Care Unavailable Celia Ramos Admitting Unavailable Celia Ramos Attending Unavailable SAMUELS, Katia Hall Attending Unavailable [...] Medication Allergies] Propensity to adverse reactions (disorder) [facility] Repository Medications Current Medications Medication Drug Class(es) [...] take 1 tablet by mouth every hour Agawam 325 mg-7.5 mg oral tablet 1 tab(s), Oral, Once, 1 tab(s), Refill(s) 0, Take 1 hour prior to procedure, [facility]/pharmacy #[id number], 187, cm, 03/11/23 13:44:00 EDT, [...] Daily, # 14 tab(s), Refills(s) 0, Pharmacy: [facility]/pharmacy #[id number], 187, cm, 06/10/23 13:43:00 EST, [...] Drug Class(es) Dates Sig (Normalized) Sig (Original) [id number] 200 actuat albuterol 0.09 mg/actuat metered dose [...] procedure, # 6 tab(s), Refills(s) 0, Pharmacy: [facility]/pharmacy #[id number], 187, cm, 09/18/22 14:39:00 EDT, Height/Length Dosing, 93, kg, 09/18/22 14:39:00 EDT, Weight Dosing Start Date: 12/03/22 Status: Ordered Start: 07-25-2022 take 1 tablet by charlene once daily Cipro 250 mg Tab 250 mg = 1 tab(s), Oral, Daily, Take 1 tablet the day before the procedure and 1 tablet after the procedure, # 2 tab(s), Refills(s) 0, Pharmacy: [facility]/pharmacy #[id number], 187, cm, 06/11/22 9:11:00 EST, [...] Other prison (current) drug therapy; Translations: [OTH SUPERINTENDENT CONTAINER TERMINAL CURRENT DRUG THERAPY] Onset: 09-23-2022 Episodic Other aftercare (1 source) custodial (current) use of anticoagulants; Translations: [CORRECTION CURRNT USE ANTICOAGULANTS] Onset: 09-08-2022 Episodic Other [...] Onset: 05-23-2022 Episodic Other aftercare (1 source) 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 The timbi-sha shoshone aneurysmal sac has decreased in size now [...] aortic aneurysm with interval decrease of the timbi-[place] shoshone aneurysmal sac since the prior CTA study. The stent is suboptimally evaluated due to lack of IV contrast. 2. Prostatomegaly with Zapien catheter in place. There appears to be urinary bladder wall thickening and inflammatory changes suspicious for cystitis. Correlation with urinalysis is recommended. Impression dictated by: Rogelio Agustin Jr., D.OSigrid08/18/2023 3:18 PM Dictation Location: [place] [address] Transcribed By: [facility] 08/18/23 1518 Dictated By: Rogelio Agustin Jr, DO 08/18/23 1503 Signed By: 08/18/23 1518 [facility] Creatinine (Bld) [Mass/Vol]O rdered By: Margarito Valentine on 08-18-2023 Creatinine [Mass/Vol] 2.4 mg/dL 0.6-1.3 [facility] Comment on above: ER/ESD physician is notified/shown all ISTAT results.Critical values may be confirmed by laboratory testing ifdeemed necessary by ER attending doctor. ISTAT XRay CREon 08-18-2023 Creatinine [Mass/Vol] 2.4 mg/dL High 0.6-1.3 [facility] Comment on above: Result Comment: ER/E SD physician is notified/shown all ISTAT results. Critical values may be confirmed by laboratory testing if deemed necessary by ER attending doctor. Performed By: #### V [id number], MANDI, B12, MG, PHOS, CMP, FOL, FE and TIBC, URIC #### [facility] [address] [place] [address] ISTAT GFR 26.776 [facility] Comment on above: Result Comment: PERF ORMED BY: [place] [address] PATHOLOGIST MOTHER REPAIRER OREN OWEN M.D. Performed By: #### V [id number], MANDI, B12, MG, PHOS, CMP, FOL, FE and TIBC, URIC #### [facility] [address] [place] [address] No Panel InformationOrdered By: Margarito Valentine on 08-18-2023 Bedside Estimated GFR (eGFR) 26.776 [facility] ED Note-Physicianon 08-07-19 ED Note-Physician [id number]#1.00TIFF [facility] ED Note-Physicianon 08-06-19 ED Note-Physician [id number]#1.00TIFF [facility] ED Note-Physician [id number]#1.00TIFF [facility] ED Note-Physician [id number]#1.00TIFF [facility] Lab Reportson 08-06-2023 Lab Reports [id number]#1.00TIFF [facility] Lab Reports [id number]#1.00TIFF [facility] Reminderson 08-01-2023 Reminders - From: Dana Rivas To: [facility]; Cc: Dana Rivas; Sent: 03/14/2023 08:18:18 EDT Show up: 07/25/2023 08:18:00 EST Subject: cysto/fish/cytol Due Date/Time: 08/11/2023 08:18:00 EDT Reminder/Recall Patient is due in August 2023 for 3 month cysto/fish/cytol [facility]. he will be due in November 2023.[facility] Physician Orderon 07-04-2023 Physician Order [id number]#1.00TIFF [facility] Patient Educationon 06-30-19 Patient Education [...] these instructions at home: Medicines ? Take cguf-vxy-aztexhq and prescription medicines only as told by [...] provider. Document Revised: 01/31/2021 Document Reviewed: 01/31/2021 [employer] Patient Education ? 20[employer]. [facility] Urology Office/Clinic Noteon 06-30-2023 Urology Office/Clinic Note Chief Complaint f/u to Diann [facility] Staff F/u to Diann done 06/10/23. Dx: [...] When Contact Information ARLENE CASILLAS, Katia Hall, [facility] [address], [place] [address] [phone] Additional Instructions: 1 day for catheter removal Patient Education Acute Urinary Retention, Male I, Apple Escoto, personally scribed for Dr. Samuels on 06/30/2023 14:30:01. . Documentation recorded by the scribeApple, accurately reflects the services(s) I performed and [...] Use:. Cigarettes, (more content not included)... [facility] Comment on above: Result Comment: Elec tronically Signed By: Katia SAMUELS MD\.br\Date and Time Signed: 06/30/23 14:32 EST\.br\Electronically Co-Signed By: Apple Escoto\.br\Date and Time Co-Signed: 06/30/23 14:30 EST [facility] Fish and Urine Cyt o ([facility])on 06-26-2023 [facility] Revision Information Invalid Interpretation Code [facility] Comment on above: Result Comment: Brayan ection Reason -[ Fredi Stephen, 06/26/23 - 10:32 ] Corrected report issued to update PMS/PWS. The diagnosis remains unchanged. Correction Notes - Performed By: #### 1 [id number] #### [facility] [address] [place] [address] Ambulatory Visit Summaryon 0 06-16-2023 Ambulatory Visit Summary ALEX ANDERSON :1945 Visit Date:06/16/2023 Ambulatory Visit Instructions Your Diagnosis BPH with urinary obstruction Your Care Team Attending Physician - ARLENE CASILLAS, Katia Hall Primary Care Physician - IDANIA CASILLAS, STANLEY Rich This Is Your Medications List acetaminophen-hydrocodone (Agawam 325 mg-7.5 mg oral tablet) albuterol (Albuterol [...] Katia SAMUELS MD Where: [facility] Normal [facility] Consent for Procedure/Surger yon 06-10-2023 Consent for Procedure/Surgery [id number]#1.00TIFF [facility] Consent for Treatmenton 05-26 Consent for Treatment [id number]#1.00TIFF [facility] IntraOperative Documentson 0 06-10-2023 IntraOperative Documents [id number]#1.00TIFF [facility] Main OR Intraoperative Recor don 06-10-2023 Main OR Intraoperative Record IntraOp Document Type FTURO Summary Primary Physician: Katia SAMUELS MD Finalized Date/Time: 06/10/23 15:18:46 Pt. Name: ALEX ANDERSON/Sex: 1945 Male Med Rec #: [id number] Physician: Katia SAMUELS MD Financial #: [id number] Pt. Type: O Room/Bed: / Admit/Disch: 06/10/23 12:50:19 - Institution: Case Times FTURO Entry 1 Patient Times In Room 06/10/23 14:32:00 Out Room 06/10/23 15:13:00 Procedure Times Start 06/10/23 14:40:00 Stop 06/10/23 15:07:00 Anesthesia Times Last Modified By: Clifford CHAN, Gayatri GOSS 06/10/23 15:07:12 Case Attendance FTURO Entry 1 Entry 2 Entry 3 Case Attendee Katia SAMUELS MD RN, KATEOR, Kathleen Lai Role Performed Surgeon - Primary Scientific Director - Primary Scrub - Primary Time In 06/10/23 14:32:00 06/10/23 14:32:00 06/10/23 14:32:00 Time Out 06/10/23 15:13:00 01/16/24 15:13:00 06/10/23 15:13:00 Procedure CYSTOSCOPY LOCAL CYSTOSCOPY LOCAL CYSTOSCOPY LOCAL REZUM(.) REZUM(.) REZUM(.) Comments marlene piña used car make ready worker in room orienting Last Modified By: Clifford [...] OBSTRUCTION Last Modified By: Clifford CHAN, KATEOR, Gayatri 06/10/23 13:11:24 Post-Care Text: The patient is [...] SAMUELS MD, Verified (If Participants Clifford CHAN, CNOR, Applicable) Ming Mendieta Jessica D Time Out [...] WOLFGANG Horton RN, Ruthann 06/10/23 15:18 Normal [facility] Main OR Preoperative Recordo n 06-10-2023 Main OR Preoperative Record Holding Area Document Type FTURO Summary Primary Physician: Katia SAMUELS MD Finalized Date/Time: 06/10/23 14:49:26 Pt. Name: ALEX ANDERSON/Sex: 1945 Male Med Rec #: [id number] Physician: Katia SAMUELS MD Financial #: [id number] Pt. Type: O Room/Bed: / Admit/Disch: 06/10/23 [...] GLASSES; BILATERAL Limitations: UP AD JOSIAH. PT CADDO Comment: CATARACT LENS IMPLANTS Complaints of Pain: [...] WOLFGANG Horton RN, Ruthann 06/10/23 14:49 Normal [facility] Operative Reporton Operative Report Patient: MELISSA ANDERSON [...] in satisfactory condition, Discharge instructions are provided. [facility] Comment on above: Result Comment: Elec tronically Signed By: Katia SAMUELS MD\.br\Date and Time Signed: 06/10/23 15:21 EST [...] with antibiotic coverage, Follow up arranged. Normal [facility] Comment on above: Result Comment: Elec tronically Signed By: ARLENE CASILLAS, Katia Fall.br\Date and Time Signed: 06/10/23 15:20 EST [facility] Fish and Urine Cyt o ([facility])on 06-10-2023 [facility] Method of Extraction Catheterized Normal [facility] Comment on above: Performed By: #### 1 [id number] #### [facility] [address] [place] [address] [facility] Number of Jars 1 Invalid Interpretation Code [facility] Comment on above: Performed By: #### 1 [id number] #### [facility] [address] [place] [address] [facility] Specimen Urine Normal [facility] Comment on above: Performed By: #### 1 [id number] #### [facility] [address] [place] [address] [facility] Type of Service Technical Only Normal [facility] Comment on above: Performed By: #### 1 [id number] #### [facility] [address] [place] [address] Alanine aminotransferase [En zymatic activity/volume] in Serum or PlasmaOrdered By: Celia Ramos on 04-08-2023 ALT [Catalytic activity/Vol] 17 U/L [facility] Albumin [Mass/volume] in Ser um or Plasma by Bromocresol green (BCG) dye binding methoOrdered By: Celia Ramos on 04-08-2023 Albumin BCG dye [Mass/Vol] 4.2 g/dL 3.5-5.7 [facility] Alkaline phosphatase [Enzyma tic activity/volume] in Serum or PlasmaOrdered By: Celia Ramos on 04-08-2023 ALP [Catalytic activity/Vol] 72 U/L 34-104 [facility] Aspartate aminotransferase [ Enzymatic activity/volume] in Serum or PlasmaOrdered By: Celia Ramos on 04-08-2023 AST [Catalytic activity/Vol] 16 U/L 13-39 [facility] Automated erythrocytes count in urine sediment (number/area)Ordered By: Celia Ramos on 04-08-2023 RBC Auto (Urine sed) [#/Area] 3-4 [HPF] 0-4 [facility] Automated leukocytes count i n urine sediment (number/area)Ordered By: Celia Ramos on 04-08-2023 WBC Auto (Urine sed) [#/Area] 50-100 [HPF] 0-4 [facility] Bilirubin Test strip Ql (U)O rdered By: Celia Ramos on 04-08-2023 Bilirubin Ql (U) Negative Negative [facility] Bilirubin.total [Mass/volume ] in Serum or PlasmaOrdered By: Celia Ramos on 04-08-2023 Bilirubin [Mass/Vol] 0.5 mg/dL 0.3-1.0 [facility] Calcium [Mass/volume] in Ser um or PlasmaOrdered By: Celia Ramos 04-08-2023 Calcium [Mass/Vol] 9.3 mg/dL 8.6-10.3 [facility] Carbon dioxide, total [Moles /volume] in Serum or PlasmaOrdered By: Celia Ramos on 04-08-2023 CO2 [Moles/Vol] 31.6 mmol/L 21.0-31.0 [facility] Chloride [Moles/volume] in S marium or PlasmaOrdered By: Celia Ramos on 04-08-2023 Chloride [Moles/Vol] 107 mmol/L 98-107 [facility] Cholesterol [Mass/volume] in Serum or PlasmaOrdered By: Teo Stokes on 04-08-2023 Cholesterol [Mass/Vol] 107 mg/dL 140-200 [facility] Comment on above: Chol less than 200 m g/dl low riskChol 201-239 mg/dl borderline riskChol 240 mg/dl and greater high risk Cholesterol in LDL Calc [Mas s/Vol]Ordered By: Teo Stokes on 04-08-2023 Cholesterol in LDL [Mass/Vol] 47 mg/dL 0-100 [facility] Comment on above: LDL ATP III CLASSIFI CATIONLDL less than 100 mg/dL OptimalLDL 100-129 mg/dL Near or above optimalLDL 130-159 mg/dL Borderline highLDL 160-189 mg/dL HighLDL greater than 189 mg/dL Very high Cholesterol in VLDL Calc [Ma ss/Vol]Ordered By: Teo Stokes on 04-08-2023 Cholesterol in VLDL [Mass/Vol] 26 mg/dL [facility] Color Auto (U)Ordered By: Jonh Ramos on 04-08-2023 Color (U) Yellow Yellow [facility] Comprehensive Metabolic Pane howard 04-08-2023 Albumin [Mass/Vol] 4.2 g/dL Normal 3.5-5.7 [facility] Comment on above: Order Comment: Reaso n for Exam Acute kidney injury;Chronic kidney disease, stage 3b;Bilater Performed By: #### V [id number], MANDI, B12, MG, PHOS, CMP, FOL, FE and TIBC, URIC #### [facility] [address] Albumin/Globulin [Mass ratio] 1.5 {ratio} Normal [facility] Comment on above: Order Comment: Reaso n for Exam Acute kidney injury;Chronic kidney disease, stage 3b;Bilater Performed By: #### V [id number], MANDI, B12, MG, PHOS, CMP, FOL, FE and TIBC, URIC #### [facility] [address] [place] [id number] [place] ALP [Catalytic activity/Vol] 72 U/L Normal 34-104 [facility] Comment on above: Order Comment: Reaso n for Exam Acute kidney injury;Chronic kidney disease, stage 3b;Bilater Performed By: #### V [id number], MANDI, B12, MG, PHOS, CMP, FOL, FE and TIBC, URIC #### [facility] [address] ALT [Catalytic activity/Vol] 17 U/L Normal 7-52 [facility] Comment on above: Order Comment: Reaso n for Exam Acute kidney injury;Chronic kidney disease, stage 3b;Bilater Performed By: #### V [id number], MANDI, B12, MG, PHOS, CMP, FOL, FE and TIBC, URIC #### [facility] [address] Anion gap [Moles/Vol] 8.9 mmol/L Normal 6.0-15.0 [facility] Comment on above: Order Comment: Reaso n for Exam Acute kidney injury;Chronic kidney disease, stage 3b;Bilater Performed By: #### V [id number], MANDI, B12, MG, PHOS, CMP, FOL, FE and TIBC, URIC #### [facility] [address] [place] [address] AST [Catalytic activity/Vol] 16 U/L Normal 13-39 [facility] Comment on above: Order Comment: Reaso n for Exam Acute kidney injury;Chronic kidney disease, stage 3b;Bilater Performed By: #### V [id number], MANDI, B12, MG, PHOS, CMP, FOL, FE and TIBC, URIC #### [facility] [address] [place] [address] Bilirubin [Mass/Vol] 0.5 mg/dL Normal 0.3-1.0 [facility] Comment on above: Order Comment: Reaso n for Exam Acute kidney injury;Chronic kidney disease, stage 3b;Bilater Performed By: #### V [id number], MANDI, B12, MG, PHOS, CMP, FOL, FE and TIBC, URIC #### [facility] [address] [place] [address] Calcium [Mass/Vol] 9.3 mg/dL Normal 8.6-10.3 [facility] Comment on above: Order Comment: Reaso n for Exam Acute kidney injury;Chronic kidney disease, stage 3b;Bilater Performed By: #### V [id number], MANDI, B12, MG, PHOS, CMP, FOL, FE and TIBC, URIC #### [facility] [address] Chloride [Moles/Vol] 107 mmol/L Normal 98-107 [facility] Comment on above: Order Comment: Reaso n for Exam Acute kidney injury;Chronic kidney disease, stage 3b;Bilater Performed By: #### V [id number], MANDI, B12, MG, PHOS, CMP, FOL, FE and TIBC, URIC #### [facility] [address] CO2 [Moles/Vol] 31.6 mmol/L High 21.0-31.0 [facility] Comment on above: Order Comment: Reaso n for Exam Acute kidney injury;Chronic kidney disease, stage 3b;Bilater Performed By: #### V [id number], MANDI, B12, MG, PHOS, CMP, FOL, FE and TIBC, URIC #### [facility] [address] Creatinine [Mass/Vol] 1.41 mg/dL High 0.70-1.30 [facility] Comment on above: Order Comment: Reaso n for Exam Acute kidney injury;Chronic kidney disease, stage 3b;Bilater Performed By: #### V [id number], MANDI, B12, MG, PHOS, CMP, FOL, FE and TIBC, URIC #### [facility] [address] GFR/1.73 sq M.predicted MDRD (S/P/Bld) [Vol rate/Area] 50.692 mL/min/{1.73_m2} Normal [facility] Comment on above: Order Comment: Reaso n for Exam Acute kidney injury;Chronic kidney disease, stage 3b;Bilater Performed By: #### V [id number], MANDI, B12, MG, PHOS, CMP, FOL, FE and TIBC, URIC #### [facility] [address] Globulin (S) [Mass/Vol] 2.8 g/dL Normal [facility] Comment on above: Order Comment: Reaso n for Exam Acute kidney injury;Chronic kidney disease, stage 3b;Bilater Performed By: #### V [id number], MANDI, B12, MG, PHOS, CMP, FOL, FE and TIBC, URIC #### [facility] [address] [place] [address] [place] Glucose [Mass/Vol] 107 mg/dL High 70-100 [facility] Comment on above: Order Comment: Reaso n for Exam Acute kidney injury;Chronic kidney disease, stage 3b;Bilater Result Comment: [facility] Glucose Reference Range is dependent on time and content of last meal. Glucose of more than 200 mg/dL in a nonstressed, ambulatory subject supports the diagnosis of Diabetes Mellitus. ADA recommended reference range Performed By: #### V [id number], MANDI, B12, MG, PHOS, CMP, FOL, FE and TIBC, URIC #### [facility] [address] Potassium [Moles/Vol] 4.5 mmol/L Normal 3.5-5.1 [facility] Comment on above: Order Comment: Reaso n for Exam Acute kidney injury;Chronic kidney disease, stage 3b;Bilater Performed By: #### V [id number], MANDI, B12, MG, PHOS, CMP, FOL, FE and TIBC, URIC #### [facility] [address] [place] [address] [place] Protein [Mass/Vol] 7.0 g/dL Normal 6.4-8.9 [facility] Comment on above: Order Comment: Reaso n for Exam Acute kidney injury;Chronic kidney disease, stage 3b;Bilater Performed By: #### V [id number], MANDI, B12, MG, PHOS, CMP, FOL, FE and TIBC, URIC #### [facility] [address] [place] [id number] [place] Sodium [Moles/Vol] 143 mmol/L Normal 136-145 [facility] Comment on above: Order Comment: Reaso n for Exam Acute kidney injury;Chronic kidney disease, stage 3b;Bilater Performed By: #### V [id number], MANDI, B12, MG, PHOS, CMP, FOL, FE and TIBC, URIC #### [facility] [address] [place] [address] [place] Urea nitrogen [Mass/Vol] 27 mg/dL High 7-25 [facility] Comment on above: Order Comment: Reaso n for Exam Acute kidney injury;Chronic kidney disease, stage 3b;Bilater Performed By: #### V [id number], MANDI, B12, MG, PHOS, CMP, FOL, FE and TIBC, URIC #### [facility] [address] Creatinine [Mass/volume] in Serum or PlasmaOrdered By: Celia Ramos on 04-08-2023 Creatinine [Mass/Vol] 1.41 mg/dL 0.70-1.30 [facility] Creatinine [Mass/volume] in UrineOrdered By: Celia Ramos on 04-08-2023 Creatinine (U) [Mass/Vol] 90.0 mg/dL 14.0-26.0 [facility] Dipstick and Microscopicon 1 06-08-2022 Appearance (U) Cloudy Critically abnormal Clear [facility] Comment on above: Order Comment: Reaso n for Exam Acute kidney injury;Chronic kidney disease, stage 3b;Bilater Performed By: #### V [id number], MANDI, B12, MG, PHOS, CMP, FOL, FE and TIBC, URIC #### [facility] [address] [place] [address] [place] Bacteria,Urine 4+ High None Seen [facility] Comment on above: Order Comment: Reaso n for Exam Acute kidney injury;Chronic kidney disease, stage 3b;Bilater Performed By: #### V [id number], MANDI, B12, MG, PHOS, CMP, FOL, FE and TIBC, URIC #### [facility] [address] [place] [id number] [place] Bilirubin,Urine Negative Normal Negative [facility] Comment on above: Order Comment: Reaso n for Exam Acute kidney injury;Chronic kidney disease, stage 3b;Bilater Performed By: #### V [id number], MANDI, B12, MG, PHOS, CMP, FOL, FE and TIBC, URIC #### [facility] [address] [place] [id number] [place] Color (U) Yellow Normal Yellow [facility] Comment on above: Order Comment: Reaso n for Exam Acute kidney injury;Chronic kidney disease, stage 3b;Bilater Performed By: #### V [id number], MANDI, B12, MG, PHOS, CMP, FOL, FE and TIBC, URIC #### [facility] [address] Glucose Ql (U) Normal Normal Normal [facility] Comment on above: Order Comment: Reaso n for Exam Acute kidney injury;Chronic kidney disease, stage 3b;Bilater Performed By: #### V [id number], MANDI, B12, MG, PHOS, CMP, FOL, FE and TIBC, URIC #### [facility] [address] Hyaline Casts,Urine 9-19 High 0-8 [facility] Comment on above: Order Comment: Reaso n for Exam Acute kidney injury;Chronic kidney disease, stage 3b;Bilater Result Comment: PERF ORMED BY: [place] [address] PATHOLOGIST MOTHER REPAIRER OREN OWEN M.D. Performed By: #### V [id number], MANDI, B12, MG, PHOS, CMP, FOL, FE and TIBC, URIC #### [facility] [address] [place] [address] Ketones Ql (U) Negative Normal Negative [facility] Comment on above: Order Comment: Reaso n for Exam Acute kidney injury;Chronic kidney disease, stage 3b;Bilater Performed By: #### V [id number], MANDI, B12, MG, PHOS, CMP, FOL, FE and TIBC, URIC #### [facility] [address] Leukocyte esterase Test strip Ql (U) 4+ High Negative [facility] Comment on above: Order Comment: Reaso n for Exam Acute kidney injury;Chronic kidney disease, stage 3b;Bilater Performed By: #### V [id number], MANDI, B12, MG, PHOS, CMP, FOL, FE and TIBC, URIC #### [address] Nitrite,Urine Positive High Negative [facility] Comment on above: Order Comment: Reaso n for Exam Acute kidney injury;Chronic kidney disease, stage 3b;Bilater Performed By: #### V [id number], MANDI, B12, MG, PHOS, CMP, FOL, FE and TIBC, URIC #### [facility] [address] Occult Blood,Urine 1+ High Negative [facility] Comment on above: Order Comment: Reaso n for Exam Acute kidney injury;Chronic kidney disease, stage 3b;Bilater Result Comment: PERF ORMED BY: [place] [address] PATHOLOGIST MOTHER REPAIRER OREN OWEN M.D. Performed By: #### V [id number], MANDI, B12, MG, PHOS, CMP, FOL, FE and TIBC, URIC #### [address] pH (U) 7.0 [pH] Normal 5.0-9.0 [facility] Comment on above: Order Comment: Reaso n for Exam Acute kidney injury;Chronic kidney disease, stage 3b;Bilater Performed By: #### V [id number], MANDI, B12, MG, PHOS, CMP, FOL, FE and TIBC, URIC #### [facility] [address] [place] [address] Protein,Urine Trace High Negative [facility] Comment on above: Order Comment: Reaso n for Exam Acute kidney injury;Chronic kidney disease, stage 3b;Bilater Performed By: #### V [id number], MANDI, B12, MG, PHOS, CMP, FOL, FE and TIBC, URIC #### [facility] [address] [place] [address] RBC,Urine 3-4 Normal 0-4 [facility] Comment on above: Order Comment: Reaso n for Exam Acute kidney injury;Chronic kidney disease, stage 3b;Bilater Performed By: #### V [id number], MANDI, B12, MG, PHOS, CMP, FOL, FE and TIBC, URIC #### [facility] [address] [place] [address] Specificy [place],Urine 1.017 Normal 1.00 1-1.03 0 [facility] Comment on above: Order Comment: Reaso n for Exam Acute kidney injury;Chronic kidney disease, stage 3b;Bilater Performed By: #### V [id number], MANDI, B12, MG, PHOS, CMP, FOL, FE and TIBC, URIC #### [facility] [address] Squamous Epithelial Cell,Urine 0-1 Normal 0-2 [facility] Comment on above: Order Comment: Reaso n for Exam Acute kidney injury;Chronic kidney disease, stage 3b;Bilater Performed By: #### V [id number], MANDI, B12, MG, PHOS, CMP, FOL, FE and TIBC, URIC #### [facility] [address] Urobilinogen,Urine Normal Normal Normal [facility] Comment on above: Order Comment: Reaso n for Exam Acute kidney injury;Chronic kidney disease, stage 3b;Bilater Performed By: #### V [id number], MANDI, B12, MG, PHOS, CMP, FOL, FE and TIBC, URIC #### [facility] [address] WBC,Urine 50-100 High 0-4 [facility] Comment on above: Order Comment: Reaso n for Exam Acute kidney injury;Chronic kidney disease, stage 3b;Bilater Performed By: #### V [id number], MANDI, B12, MG, PHOS, CMP, FOL, FE and TIBC, URIC #### [facility] [address] Erythrocyte distribution wid th Auto (RBC) [Ratio]Ordered By: Celia Ramos on 04-08-2023 Erythrocyte distribution width (RBC) [Ratio] 15.7 % 12.0-14.8 [facility] Ferritinon 04-08-2023 Ferritin [Mass/Vol] 34.1 ng/mL Normal 23.9-336.2 [facility] Comment on above: Order Comment: Reaso n for Exam Acute kidney injury;Chronic kidney disease, stage 3b;Bilater Performed By: #### V [id number], MANDI, B12, MG, PHOS, CMP, FOL, FE and TIBC, URIC #### [facility] [address] [place] [address] [facility] Ferritin [Mass/volume] in Se rum or PlasmaOrdered By: Celia Ramos on 04-08-2023 Ferritin [Mass/Vol] 34.1 ng/mL 23.9-336.2 [facility] Folateon 04-08-2023 Folate 34.0 ng/mL Normal >5.9 [facility] Comment on above: Order Comment: Reaso n for Exam Acute kidney injury;Chronic kidney disease, stage 3b;Bilater Result Comment: Caryn te reference range: >5.9 ng/ml The WHO technical consultation on folate and vitamin b12 deficiencies has determined that folate concentrations less than 4 ng/ml are considered deficient. Performed By: #### V [id number], MANDI, B12, MG, PHOS, CMP, FOL, FE and TIBC, URIC #### [facility] [address] [place] [address] [facility] Folate [Mass/volume] in Seru m or PlasmaOrdered By: Celia Ramos on 04-08-2023 Folate [Mass/Vol] 34.0 ng/mL >5.9 [facility] Comment on above: Folate reference ran ge: >5.9 ng/mlThe WHO technical consultation on folate and vitamin [id number] has determined that folate concentrations lessthan 4 ng/ml are considered deficient. Globulin Calc (S) [Mass/Vol] Ordered By: Celia Ramos on 04-08-2023 Globulin (S) [Mass/Vol] 2.8 g/dL [facility] Glucose [Mass/volume] in Ser um or PlasmaOrdered By: Celia Ramos on 04-08-2023 Glucose [Mass/Vol] 107 mg/dL 70-100 [facility] Comment on above: ADA recommended refe rence rangeRandom Glucose Reference Range is dependent on time and content of last meal. Glucose of more than 200 mg/dL in a nonstressed, ambulatory subject supports the diagnosis of Diabetes Mellitus. Hematocrit Auto (Bld) [Volum e fraction]Ordered By: Celia Ramos on 04-08-2023 Hematocrit (Bld) [Volume fraction] 43.8 % 38.8-50.0 [facility] Hemoglobin [Mass/volume] in BloodOrdered By: Celia Ramos on 04-08-2023 Hemoglobin (Bld) [Mass/Vol] 14.3 g/dL 13.0-17.0 [facility] Hemogram CBC Without Diffon 04-08-2023 Erythrocyte distribution width (RBC) [Ratio] 15.7 % High 12.0-14.8 [facility] Comment on above: Order Comment: Reaso n for Exam Acute kidney injury;Chronic kidney disease, stage 3b;Bilater Performed By: #### V [id number], MANDI, B12, MG, PHOS, CMP, FOL, FE and TIBC, URIC #### [facility] [address] Hematocrit (Bld) [Volume fraction] 43.8 % Normal 38.8-50.0 [facility] Comment on above: Order Comment: Reaso n for Exam Acute kidney injury;Chronic kidney disease, stage 3b;Bilater Performed By: #### V [id number], MANDI, B12, MG, PHOS, CMP, FOL, FE and TIBC, URIC #### [facility] [address] Hemoglobin (Bld) [Mass/Vol] 14.3 g/dL Normal 13.0-17.0 [facility] Comment on above: Order Comment: Reaso n for Exam Acute kidney injury;Chronic kidney disease, stage 3b;Bilater Performed By: #### V [id number], MANDI, B12, MG, PHOS, CMP, FOL, FE and TIBC, URIC #### [facility] [address] MCH (RBC) [Entitic mass] 27.3 pg Low 27.5-35.2 [facility] Comment on above: Order Comment: Reaso n for Exam Acute kidney injury;Chronic kidney disease, stage 3b;Bilater Performed By: #### V [id number], MANDI, B12, MG, PHOS, CMP, FOL, FE and TIBC, URIC #### [facility] [address] MCV (RBC) [Entitic vol] 83.8 fL Normal 83.5-101 [facility] Comment on above: Order Comment: Reaso n for Exam Acute kidney injury;Chronic kidney disease, stage 3b;Bilater Performed By: #### V [id number], MANDI, B12, MG, PHOS, CMP, FOL, FE and TIBC, URIC #### [facility] [address] Mean Corpuscular HGB Conc 32.6 g/dL Normal 32.5-35.6 [facility] Comment on above: Order Comment: Reaso n for Exam Acute kidney injury;Chronic kidney disease, stage 3b;Bilater Performed By: #### V [id number], MANDI, B12, MG, PHOS, CMP, FOL, FE and TIBC, URIC #### [facility] [address] Platelet mean volume (Bld) [Entitic vol] 8.6 fL Normal 6.6-10.1 [facility] Comment on above: Order Comment: Reaso n for Exam Acute kidney injury;Chronic kidney disease, stage 3b;Bilater Result Comment: PERF ORMED BY: [place] [address] PATHOLOGIST MOTHER REPAIRER OREN OWEN M.D. Performed By: #### V [id number], MANDI, B12, MG, PHOS, CMP, FOL, FE and TIBC, URIC #### [address] Platelets (Bld) [#/Vol] 201 10*3/uL Normal 150-450 [facility] Comment on above: Order Comment: Reaso n for Exam Acute kidney injury;Chronic kidney disease, stage 3b;Bilater Performed By: #### V [id number], MANDI, B12, MG, PHOS, CMP, FOL, FE and TIBC, URIC #### [address] RBC (Bld) [#/Vol] 5.22 10*6/uL Normal 3.90-5.60 [facility] Comment on above: Order Comment: Reaso n for Exam Acute kidney injury;Chronic kidney disease, stage 3b;Bilater Performed By: #### V [id number], MANDI, B12, MG, PHOS, CMP, FOL, FE and TIBC, URIC #### [facility] [address] WBC (Bld) [#/Vol] 8.4 10*3/uL Normal 4.1-10.5 [facility] Comment on above: Order Comment: Reaso n for Exam Acute kidney injury;Chronic kidney disease, stage 3b;Bilater Performed By: #### V [id number], MANDI, B12, MG, PHOS, CMP, FOL, FE and TIBC, URIC #### [facility] [address] Iron [Mass/volume] in Serum or PlasmaOrdered By: Celia Ramos on 04-08-2023 Iron [Mass/Vol] 53 ug/dL 50-212 [facility] Iron and TIBC Profileon 03-26 % Iron Saturation 14.3 % Low 20-50 [facility] Comment on above: Order Comment: Reaso n for Exam Acute kidney injury;Chronic kidney disease, stage 3b;Bilater Performed By: #### V [id number], MANDI, B12, MG, PHOS, CMP, FOL, FE and TIBC, URIC #### [facility] [address] Iron [Mass/Vol] 53 ug/dL Normal 50-212 [facility] Comment on above: Order Comment: Reaso n for Exam Acute kidney injury;Chronic kidney disease, stage 3b;Bilater Performed By: #### V [id number], MANDI, B12, MG, PHOS, CMP, FOL, FE and TIBC, URIC #### [facility] [address] Total Iron Binding Capacity 370 ug/dL Normal 255-450 [facility] Comment on above: Order Comment: Reaso n for Exam Acute kidney injury;Chronic kidney disease, stage 3b;Bilater Performed By: #### V [id number], MANDI, B12, MG, PHOS, CMP, FOL, FE and TIBC, URIC #### [facility] [address] [place] [address] [place] Transferrin [Mass/Vol] 264 mg/dL Normal 203-362 [facility] Comment on above: Order Comment: Reaso n for Exam Acute kidney injury;Chronic kidney disease, stage 3b;Bilater Performed By: #### V [id number], MANDI, B12, MG, PHOS, CMP, FOL, FE and TIBC, URIC #### [facility] [address] [place] [id number] [place] Iron binding capacity [Mass/ volume] in Serum or PlasmaOrdered By: Celia Ramos on 04-08-2023 Iron binding capacity [Mass/Vol] 370 ug/dL 255-450 [facility] Iron saturation [Mass Fracti on] in Serum or PlasmaOrdered By: Celia Ramos on 04-08-2023 Iron saturation [Mass fraction] 14.3 % 20-50 [facility] Ketones Auto test strip (U) [Mass/Vol]Ordered By: Celia Ramos on 04-08-2023 Ketones (U) [Mass/Vol] Negative Negative [facility] - UrinalysisOrder ed By: Celia Ramos on 04-08-2023 Hyaline casts LM Ql (Urine sed) 9-19 [LPF] 0-8 [facility] Leukocytes [#/volume] correc phil for nucleated erythrocytes in Blood by Automated counOrdered By: Celia Ramos on 04-08-2023 WBC corrected for nucl RBC Auto (Bld) [#/Vol] 8.4 10*3/uL 4.1-10.5 [facility] Lipid Panelon 04-08-2023 Cholesterol [Mass/Vol] 107 mg/dL Low 140-200 [facility] Comment on above: Result Comment: Chol less than 200 mg/dl low risk Chol 201-239 mg/dl borderline risk Chol 240 mg/dl and greater high risk Performed By: #### L IPID #### [facility] [address] [place] [id number] [facility] Cholesterol in HDL [Mass/Vol] 34 mg/dL Normal 23-92 [facility] Comment on above: Result Comment: HDL CHOL ATP-III CLASSIFICATION Cardiovascular Risk HDL > or equal to 60 mg/dL LOW HDL < 40 mg/dL HIGH Performed By: #### L IPID #### [facility] [address] [place] [address] Cholesterol.total/Sonya sterol in HDL [Mass ratio] 3.1 {ratio} Normal <5.0 [facility] Comment on above: Result Comment: PERF ORMED BY: [place] [address] PATHOLOGIST MOTHER REPAIRER OREN OWEN M.D. Performed By: #### L IPID #### [address] LDL Cholesterol,Calculated 47 mg/dL Normal 0-100 [facility] Comment on above: Result Comment: LDL ATP III CLASSIFICATION LDL less than 100 mg/dL Optimal LDL 100-129 mg/dL Near or above optimal LDL 130-159 mg/dL Borderline high LDL 160-189 mg/dL High LDL greater than 189 mg/dL Very high Performed By: #### L IPID #### [address] Triglyceride w/Reflex 131 mg/dL Normal 0-149 [facility] Comment on above: Result Comment: TRIG ATP III CLASSIFICATION TRIG less than 150 mg/dL Normal TRIG 150-199 mg/dL Borderline high TRIG 200-500 mg/dL High TRIG greater than 500 mg/dL Very high Standard traceable to the Center for Disease Conrtrol and Prevention (CDC) test method. Performed By: #### L IPID #### [facility] [address] [place] [address] VLDL CHOLESTEROL 26 mg/dL Normal [facility] Comment on above: Performed By: #### L IPID #### [facility] [address] [place] [address] MCH Auto (RBC) [Entitic mass ]Ordered By: Celia Ramos on 04-08-2023 MCH (RBC) [Entitic mass] 27.3 pg 27.5-35.2 [facility] MCHC Auto (RBC) [Mass/Vol]Or dered By: Celia Ramos on 04-08-2023 MCHC (RBC) [Mass/Vol] 32.6 g/dL 32.5-35.6 [facility] MCV Auto (RBC) [Entitic vol] Ordered By: Celia Ramos on 04-08-2023 MCV (RBC) [Entitic vol] 83.8 fL 83.5-101 [facility] Magnesiumon 04-08-2023 Magnesium [Mass/Vol] 2.2 mg/dL Normal 1.9-2.7 [facility] Comment on above: Order Comment: Reaso n for Exam Acute kidney injury;Chronic kidney disease, stage 3b;Bilater Performed By: #### V [id number], MANDI, B12, MG, PHOS, CMP, FOL, FE and TIBC, URIC #### [facility] [address] Magnesium [Mass/volume] in S marium or PlasmaOrdered By: Celia Raoms on 04-08-2023 Magnesium [Mass/Vol] 2.2 mg/dL 1.9-2.7 [facility] Nitrite Test strip Ql (U)Ord ered By: Celia Ramos on 04-08-2023 Nitrite Ql (U) Positive Negative [facility] No Panel InformationOrdered By: Celia Ramos on 04-08-2023 Estimated GFR (CKD-EPI) 50.692 mL/Min [facility] Creatinine Clearance (Chem N/A [facility] Parathyrin.intact [Mass/volu me] in Serum or PlasmaOrdered By: Celia Ramos on 04-08-2023 Parathyrin.intact [Mass/Vol] 76.6 pg/mL [facility] Parathyroid Hormone Intacton 04-08-2023 Parathyroid Hormone Intact 76.6 pg/mL Normal [facility] Comment on above: Order Comment: Reaso n for Exam Acute kidney injury;Chronic kidney disease, stage 3b;Bilater Result Comment: PERF ORMED BY: [facility] [address] [place] [address] PATHOLOGIST MOTHER REPAIRER OREN OWEN M.D. Performed By: #### V [id number], MANDI, B12, MG, PHOS, CMP, FOL, FE and TIBC, URIC #### [facility] [address] [place] [address] [place] Phosphate [Mass/volume] in S marium or PlasmaOrdered By: Celia Ramos on 04-08-2023 Phosphate [Mass/Vol] 2.8 mg/dL 2.5-4.5 [facility] Phosphoruson 04-08-2023 Phosphate [Mass/Vol] 2.8 mg/dL Normal 2.5-4.5 [facility] Comment on above: Order Comment: Reaso n for Exam Acute kidney injury;Chronic kidney disease, stage 3b;Bilater Performed By: #### V [id number], MANDI, B12, MG, PHOS, CMP, FOL, FE and TIBC, URIC #### [facility] [address] [place] [id number] [facility] Platelet mean volume Auto (B ld) [Entitic vol]Ordered By: Celia Ramos on 04-08-2023 Platelet mean volume (Bld) [Entitic vol] 8.6 fL 6.6-10.1 [facility] Platelets Auto (Bld) [#/Vol] Ordered By: Celia Ramos on 04-08-2023 Platelets (Bld) [#/Vol] 201 10*3/uL 150-450 [facility] Potassium [Moles/volume] in Serum or PlasmaOrdered By: Celia Ramos on 04-08-2023 Potassium [Moles/Vol] 4.5 mmol/L 3.5-5.1 [facility] Protein Auto test strip (U) [Mass/Vol]Ordered By: Celia Ramos on 04-08-2023 Protein (U) [Mass/Vol] Trace mg/dL Negative [facility] Protein Creat Ratio Ur Rando mon 04-08-2023 Creatinine, Urine (Random) 90.0 mg/dL High 14.0-26.0 [facility] Comment on above: Order Comment: Reaso n for Exam Acute kidney injury;Chronic kidney disease, stage 3b;Bilater Performed By: #### V [id number], MANDI, B12, MG, PHOS, CMP, FOL, FE and TIBC, URIC #### [facility] [address] [place] [id number] [place] Protein (U) [Mass/Vol] 30 mg/dL High 0-9 [facility] Comment on above: Order Comment: Reaso n for Exam Acute kidney injury;Chronic kidney disease, stage 3b;Bilater Performed By: #### V [id number], MANDI, B12, MG, PHOS, CMP, FOL, FE and TIBC, URIC #### [facility] [address] Urine Protein/Creatinine Ratio 333 mg/g{Cre} High 0-200 [facility] Comment on above: Order Comment: Reaso n for Exam Acute kidney injury;Chronic kidney disease, stage 3b;Bilater Result Comment: PERF ORMED BY: [place] [address] PATHOLOGIST MOTHER REPAIRER OREN OWEN M.D. Performed By: #### V [id number], MANDI, B12, MG, PHOS, CMP, FOL, FE and TIBC, URIC #### [facility] [address] [place] [id number] [facility] Protein [Mass/volume] in Ser um or PlasmaOrdered By: Celia Ramos on 04-08-2023 Protein [Mass/Vol] 7.0 g/dL 6.4-8.9 [facility] Protein [Mass/volume] in Uri neOrdered By: Celia Ramos on 04-08-2023 Protein (U) [Mass/Vol] 30 mg/dL 0-9 [facility] RBC Auto (Bld) [#/Vol]Ordere d By: Celia Ramos on 04-08-2023 RBC (Bld) [#/Vol] 5.22 10*6/uL 3.90-5.60 [facility] Serum or plasma albumin/glob ulin mass ratioOrdered By: Celia Ramos on 04-08-2023 Albumin/Globulin [Mass ratio] 1.5 {ratio} [facility] Serum or plasma anion gap de terminationOrdered By: Celia Ramos on 04-08-2023 Anion gap [Moles/Vol] 8.9 mmol/L 6.0-15.0 [facility] Serum or plasma high density lipoprotein (HDL) cholesterol measurementOrdered By: Teo Stokes on 04-08-2023 Cholesterol in HDL [Mass/Vol] 34 mg/dL 23-92 [facility] Comment on above: HDL CHOL ATP-III CLA SSIFICATION Cardiovascular RiskHDL > or equal to 60 mg/dL LOWHDL < 40 mg/dL HIGH Serum or plasma total choles terol/high density lipoprotein (HDL) cholesterol mass ratOrdered By: Teo Stokes on 04-08-2023 Cholesterol.total/Sonya sterol in HDL [Mass ratio] 3.1 {ratio} <5.0 [facility] Sodium [Moles/volume] in Ser um or PlasmaOrdered By: Celia Ramos on 04-08-2023 Sodium [Moles/Vol] 143 mmol/L 136-145 [facility] Specific gravity Auto test s trip (U) [Rel density]Ordered By: Celia Ramos on 04-08-2023 Specific gravity (U) [Rel density] 1.017 1.001-1.03 0 [facility] Squamous epithelial cells de tection in urine sediment by light microscopyOrdered By: Celia Ramos 04-08-2023 Epithelial cells.squamous LM Ql (Urine sed) 0-1 [HPF] 0-2 [facility] Transferrin [Mass/volume] in Serum or PlasmaOrdered By: Celia Ramos on 04-08-2023 Transferrin [Mass/Vol] 264 mg/dL 203-362 [facility] Triglyceride [Mass/volume] i n Serum or PlasmaOrdered By: Teo Stokes on 04-08-2023 Triglyceride [Mass/Vol] 131 mg/dL 0-149 [facility] Comment on above: TRIG ATP III CLASSIF ICATIONTRIG less than 150 mg/dL NormalTRIG 150-199 mg/dL Borderline highTRIG 200-500 mg/dL High TRIG greater than 500 mg/dL Very highStandard traceable to the Center for Disease Conrtrol and Prevention (CDC) test method. Urate [Mass/volume] in Serum or PlasmaOrdered By: Celia Ramos on 04-08-2023 Urate [Mass/Vol] 6.0 mg/dL 4.4-7.6 [facility] Urea nitrogen [Mass/volume] in Serum or PlasmaOrdered By: Celia Ramos on 04-08-2023 Urea nitrogen [Mass/Vol] 27 mg/dL 12-17 [facility] Uric Acidon 04-08-2023 Urate [Mass/Vol] 6.0 mg/dL Normal 4.4-7.6 [facility] Comment on above: Order Comment: Reaso n for Exam Acute kidney injury;Chronic kidney disease, stage 3b;Bilater Performed By: #### V [id number], MANDI, B12, MG, PHOS, CMP, FOL, FE and TIBC, URIC #### [facility] [address] Urine Cultureon 04-08-2023 Bacteria identified Cx Nom (U) ORGANISM: Klebsiella oxytoca (O:KLEOXY) [place] Count >100,000 ORGANISM: Morganella morganii (O:MORMOR) [place] Count >100,000 Aerobic RITESH Charge (NMIC56) SUSCEPTIBILITY [...] RESISTANT TO ALL B-LACTAM DRUGS. PERFORMED BY: [place] [address] PATHOLOGIST MOTHER REPAIRER OREN OWEN M.D. [facility] Comment on above: Performed By: #### V [id number], MANID, B12, MG, PHOS, CMP, FOL, FE and TIBC, URIC #### [facility] [address] [place] [address] Urine bacteria detection by automated methodOrdered By: Celia Ramos on 04-08-2023 Bacteria Auto Ql (U) 4+ None Seen [facility] Urine clarity by refractomet ry automatedOrdered By: Celia Ramos on 04-08-2023 Clarity Refractometry automated (U) Cloudy Clear [facility] Urine glucose measurement by automated test strip (mass/volume)Ordered By: Celia Ramos on 04-08-2023 Glucose Auto test strip (U) [Mass/Vol] Normal mg/dL [facility] Urine hemoglobin detection b y automated test stripOrdered By: Celia Ramos on 04-08-2023 Hemoglobin Auto test strip Ql (U) 1+ Negative [facility] Urine leukocyte esterase det ection by automated test stripOrdered By: Celia Ramos on 04-08-2023 Leukocyte esterase Auto test strip Ql (U) 4+ Negative [facility] Urine protein/creatinine rat ioOrdered By: Celia Ramos on 04-08-2023 Protein/Creatinine (U) [Ratio] 333 mg/g{Cre} 0-200 [facility] Urobilinogen Auto test strip (U) [Mass/Vol]Ordered By: Celia Ramos on 04-08-2023 Urobilinogen (U) [Mass/Vol] Normal mg/dL Normal [facility] Vitamin B12on 04-08-2023 Cobalamin (Vitamin B12) [Mass/Vol] 301 pg/mL Normal 180-914 [facility] Comment on above: Order Comment: Reaso n for Exam Acute kidney injury;Chronic kidney disease, stage 3b;Bilater Performed By: #### V [id number], MANDI, B12, MG, PHOS, CMP, FOL, FE and TIBC, URIC #### [facility] [address] Vitamin B12 ser/plasOrdered By: Celia Ramos on 04-08-2023 Cobalamin (Vitamin B12) [Mass/Vol] 301 pg/mL 180-914 [facility] Vitamin D 25 Hydroxy Totalon 04-08-2023 Vitamin D 25 Hydroxy Total 37.5 ng/mL Normal 30-100 [facility] Comment on above: Order Comment: Reaso n for Exam Acute kidney injury;Chronic kidney disease, stage 3b;Bilater Result Comment: CHINO MIN D STATUS 25(OH)VITAMIN D RANGE (ng/mL) Deficient <20 Insufficient 20 to <30 Sufficient 30 to 100 Reference: Sixto MF,Federico MATA, Palomo LESLIE, et al. Evaluation,treatment, and prevention of vitamin D deficiency; an Endocrine Society clinical practice guideline. JCEM. 2010; 96(7):1911-30. PERFORMED BY: [facility] [address] [place] [address] PATHOLOGIST MOTHER REPAIRER OREN OWEN M.D. Performed By: #### V [id number], MANDI, B12, MG, PHOS, CMP, FOL, FE and TIBC, URIC #### [facility] [address] [place] [id number] [facility] Vitamin D+Metabolites [Mass/ volume] in Serum or PlasmaOrdered By: Celia Ramos on 04-08-2023 Vitamin D+Metabolites [Mass/Vol] 37.5 ng/mL 30-100 [facility] Comment on above: VITAMIN D STATUS 25( [place])VITAMIN D RANGE (ng/mL) Deficient <20 Insufficient 20 to <30Sufficient 30 to 100Reference: Sixto MF,Federico MATA, Palomo LESLIE, et al. Evaluation,treatment, and prevention of vitamin D deficiency; an Endocrine Society clinical practice guideline. JCEM. 2010; 96(7):1911-30. pH Auto test strip (U)Ordere d By: Celia Ramos on 04-08-2023 pH (U) 7.0 [pH] 5.0-9.0 [facility] UroVysion Fish and Urine Cyt o (P4 Labs)on 03-18-2023 UVFISH & UC Diagnosis Info Invalid Interpretation Code [facility] Comment on above: Result Comment: A:Ur ine,Urine:Bladder [...] correlated with cytology and cystoscopy results.* CPT 66339, 04002. 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 Electronically signed by : on: 03/18/2023 13:35:55 Performed By: #### 1 [id number] #### [facility] [address] [place] [address] Consent for Procedure/Surger yon 03-12-2023 Consent for Procedure/Surgery [id number] Normal [facility] Ambulatory Visit Summaryon 1 Ambulatory Visit [...] cysto/FISH/Cytol/BT check Where: [facility] [address] [place] [address]- Medications What How Much When Instructions Unchanged [...] kidney and (more content not included)... Normal [facility] Patient Educationon 03-11-20 Patient Education Urology Transurethral Resection of the [...] including vitamins, herbs, eye drops, creams, and wicj-moe-gtlfijp medicines. ? Any problems you or family [...] tells you to take them. ? Taking xmvp-abj-umygqrl medicines, vitamins, herbs, and supplements. Surgery safety [...] health care (more content not included)... Normal [facility] UroVysion Fish and Urine Cyt o ( Labs)on 03-11-2023 [facility] Method of Extraction Bladder Urine Normal [facility] Comment on above: Performed By: #### 1 [id number] #### [facility] [address] [place] [address] [facility] Number of Jars 1 Invalid Interpretation Code [facility] Comment on above: Performed By: #### 1 [id number] #### [facility] [address] [place] [address] [facility] Specimen Bladder Wash Normal [facility] Comment on above: Performed By: #### 1 [id number] #### [facility] [address] [place] [address] [facility] Type of Service Technical Only Normal [facility] Comment on above: Performed By: #### 1 [id number] #### [facility] [address] [place] [address] Urology Office/Clinic Noteon 03-11-2023 Urology Office/Clinic Note [...] Retention of urine, unspecified) Pt presented to [facility] ER on 09/15/22 due to catheter [...] Follow-up With When Contact Information ARLENE CASILLAS, ADRIA Sterling In 3 months [facility] [address] [place] [address]- Additional Instructions: Sched cysto/FISH/Cytol/BT check Patient Education Benign Prostatic Hyperplasia I, Dalila Lala , personally scribed for Dr. Samuels on 03/11/2023 14:20:53. Electronically signed by emma Lala on (more content not included)... Normal [facility] Comment on above: Result Comment: Elec tronically Signed By: Katia SAMUELS MD\.br\Date and Time Signed: 03/11/23 14:23 EDT\.br\Electronically Co-Signed By: Dalila Lala.br\Date and Time Co-Signed: 03/11/23 14:21 EDT Office [...] Lipid Panel; Status:Active - Retrospective Authorization; Requested for:[id number]; Overweight with body mass index (BMI) of 27 to 27.9 in adult Healthy Weight Tips; Status:Complete - Retrospective Authorization; Done: [id number] Some eating tips that can help you lose weight.; Status:Complete - Retrospective Authorization; Done: [id number] SocHx: Current smoker Start: Aspirin 81 MG Oral Tablet Delayed Release; TAKE 1 TABLET DAILY Tobacco Use Screening; Status:Complete; Done: [id number] You need to stop smoking. Though it is not easy, more than half of all adult smokers have quit. We encourage you to write down all the reasons you should quit smoking and set a quit date for yourself. Ask us how we can help. You may also call 4-401-QBDGNOW for free resources and assistance.; Status:Complete - Retrospective Authorization; Done: [id number] Tobacco Use Screening; Status:Complete; Done: [id number] Patient Instructions Please bring all medicines, vitamins, [...] negative for complaint. Vitals Vital Signs Recorded: [id number] 09:57AM Heart Rate72, L Radial Mykfndek327, LUE, Sitting Texalaktg75, LUE, Sitting Height6 ft 2 in Mmouni270 lb BMI Vnpljpkfgt72.35 kg/m2 BSA Calculat (more content not included)... Normal [employer] Tobacco Screening.on 023 Fall risk assessment a) No falls within the last year [facility] [employer] DO Work Phone: Tobacco use status [facility] a) Yes Counts Include [address] [facility] [employer] DO Work Phone: Tobacco Screening. Yes [facility] [employer] DO Work Phone: IntraOperative Documentson 0 01-13-2023 IntraOperative Documents [id number]#1.00CD:127 Normal [facility] Consent for Procedure/Surger yon 01-07-2023 Consent for Procedure/Surgery [id number]#1.00CD:127 [facility] IntraOperative Documentson 0 01-07-2023 IntraOperative Documents [id number]#1.00CD:127 Normal [facility] Consent for Treatmenton 08-0 Consent for Treatment [id number]#1.00CD:127 Normal [facility] UroVysion Fish and Urine Cyt o (P4 Labs)on 12-17-2022 UVFISH & UC Diagnosis Info Invalid Interpretation Code [facility] Comment on above: Result Comment: A:Ur ine,Urine:Bladder [...] correlated with cytology and cystoscopy results.* CPT 39825, 66635. Microscopic Notes - Microscopic Notes - Abnormal cells 9p21 deletions: Abnormal cells aneploid events: Total cells analyzed: 101 Hematuria: Gross Description Site ID:A color No Color fixative Alcohol Received 60 mls of clear no color fluid with the patient's name and, Urine on the vial. Electronically signed by : on: 12/17/2022 09:12:29 Performed By: #### 1 [id number] ####[facility] [address] [place] [address] Urology Office/Clinic Noteon 12-16-2022 Urology Office/Clinic Note [...] Retention of urine, unspecified) Pt presented to [facility] ER on 09/15/22 due to catheter [...] Hall, URL [facility] [address], [place] [address]- Additional Instructions: Follow up after urodynamics for [...] emphysema Dem (more content not included)... Normal [facility] Comment on above: Result Comment: Elec tronically Signed By: Dana Rivas.gonsalo\Date and Time Signed: 12/16/22 11:30 EDT Consent for Procedure/Surger yon 12-11-2022 Consent for Procedure/Surgery [id number]:127 Normal [facility] Ambulatory Visit Summaryon 0 12-10-2022 Ambulatory Visit [...] Where: [facility] [address] , [place] [address]- Medications What How Much When Instructions Unchanged [...] with r (more content not included)... Normal [facility] Patient Educationon 12-11-19 Patient Education Oncology [...] if anything looks unusual. Men with a rxthey-gznu-bytqcb risk for skin cancer may want to see a prevention specialist (table worker packager) for an annual body check. What are the benefits of screening? Cancer screening is done to look for cancer in the very early stages, before it spreads and becomes harder to treat and before you would start to notice symptoms. Finding cancer early improves the chances of successful treatment. It ma (more content not included)... Normal [facility] UroVysion Fish and Urine Cyt o (P4 Labs)on 12-10-2022 UVUC Method of Extraction Bladder Wash Normal [facility] Comment on above: Performed By: #### 1 [id number] ####[facility] [address] [place] [address] [facility] Number of Jars 1 Invalid Interpretation Code [facility] Comment on above: Performed By: #### 1 [id number] ####[facility] [address] [place] [address] [facility] Specimen Urine Normal [facility] Comment on above: Performed By: #### 1 [id number] ####[facility] [address] [place] [address] [facility] Type of Service Technical Only Normal [facility] Comment on above: Performed By: #### 1 [id number] ####[facility] [address] [place] [address] CULTURE URINEon 09-18-2022 CULTURE URINE Isolate 1 Pseudomonas aeruginosa >100,000 cfu/mL of ORGANISM 1 Pseudomonas aeruginosa ANTIBIOTIC M.I.C RX STATUS Piperacillin/Tazobactam <=4 S F Ceftazidime <=1 S F Imipenem 2 S F Amikacin <=2 S F Gentamicin 2 S F Tobramycin <=1 S F Ciprofloxacin <=0.25 S F Levofloxacin <=0.12 S F Normal [facility] Comment on above: Performed By: #### U RTPCR #### [facility] [address] [address] [address] Karen Pierce CALCULI, URINARYon 3 2,8 Dihydroxyadenine Normal [facility] Comment on above: Performed By: #### U A #### [facility] [address] [address] [address] Karen Pierce Ammonium Acid Urate Normal [facility] Comment on above: Performed By: #### U A #### [facility] [address] [address] [address] Karen Pierce Bilirubin Ql (U) Normal [facility] Comment on above: Performed By: #### U A #### [facility] [address] [address] [address] Karen Pierce Ca Oxalate Dihydrate Normal [facility] Comment on above: Performed By: #### U A #### [facility] [address] [address] [address] Karen Pierce CaHPO4 (Brushite) [facility] Comment on above: Performed By: #### U A #### [facility] [address] [address] [address] Karen Pierce Calcium Bilirubinate [facility] Comment on above: Performed By: #### U A #### [facility] [address] [address] [address] Karen Pierce Calcium Carbonate Normal [facility] Comment on above: Performed By: #### U A #### [facility] [address] [address] [address] Karen Pierce Calcium Oxalate Monohydrate 100 % [facility] Comment on above: Performed By: #### U A #### [facility] [address] [address] [address] Karen Pierce Calcium Palmitate Normal [facility] Comment on above: Performed By: #### U A #### [facility] [address] [address] [address] Karen Pierce Calcium Phosphate Normal [facility] Comment on above: Performed By: #### U A #### [facility] [address] [address] [address] Karen Pierce Calcium Stearate Normal [facility] Comment on above: Performed By: #### U A #### [facility] [address] [address] [address] Karen Pierce Carbonate Apatite Normal [facility] Comment on above: Performed By: #### U A #### [facility] [address] [place] [address] Dr. Karen Pierce Cellular Material [facility] Comment on above: Performed By: #### U A #### [facility] [address] [address] [address] Karen Pierce Cholesterol [facility] Comment on above: Performed By: #### U A #### [facility] [address] [place] [address] Dr. Karen Pierce Color (U) Brown [facility] Comment on above: Performed By: #### U A #### [facility] [address] [place] [address] Dr. Karen Pierce Comment [facility] Comment on above: Performed By: #### U A #### [facility] [address] [place] [address] Dr. Karen Pierce Comment: Comment Normal [facility] Comment on above: Result Comment: Phys ninoskaan questions regarding Calculi Analysis contact [facility] at: [phone]. Performed By: #### U A #### [facility] [address] [place] [address] Dr. Karen Pierce Composition Comment [facility] Comment on above: Result Comment: Perc entage (Represents the % composition) Performed By: #### U A #### [facility] [address] [place] [address] Dr. Karen Pierce Cystine [facility] Comment on above: Performed By: #### U A #### [facility] [address] [place] [address] Dr. Karen Pierce Disclaimer: Comment [facility] Comment on above: Result Comment: This test was developed and its performance characteristics determined by [facility]. It has not been cleared or approved by the Food and Drug Administration. Performed By: #### U A #### [facility] [address] [place] [address] Dr. Karen Pierce Dried Blood Normal [facility] Comment on above: Performed By: #### U A #### [facility] [address] [place] [address] Dr. Karen Pierce Drug or Metabolite Normal [facility] Comment on above: Performed By: #### U A #### [facility] [address] [place] [address] Dr. Karen Pierce Hydroxyapatite Normal [facility] Comment on above: Performed By: #### U A #### [facility] [address] [place] [address] Dr. Karen Pierce Mg NH4 PO4 (Struvite) [facility] Comment on above: Performed By: #### U A #### [facility] [address] [place] [address] Dr. Karen Pierce MgHPO4 (Newberyite) [facility] Comment on above: Performed By: #### U A #### [facility] [address] [place] [address] Dr. Karen Pierce Other component(s) [facility] Comment on above: Performed By: #### U A #### [facility] [address] [place] [address] Dr. Karen Pierce PDF . [facility] Comment on above: Performed By: #### U A #### [facility] [address] [place] [address] Dr. Karen Pierce Photo Comment Normal [facility] Comment on above: Result Comment: Phot ograph will follow under a separate cover Performed By: #### U A #### [facility] [address] [place] [address] Dr. Karen Pierce Please note: Comment Normal [facility] Comment on above: Result Comment: Calc shirley report will follow via computer, mail or bundle person delivery. Performed By: #### U A #### [facility] [address] [place] [address] Dr. Karen Pierce Size 5x5 Normal [facility] Comment on above: Result Comment: Mult iple pieces received. Dimensions of the largest piece reported. Performed By: #### U A #### [facility] [address] [address] [address] Karen Pierce Sodium Acid Urate [facility] Comment on above: Performed By: #### U A #### [facility] [address] [address] [address] Karen Pierce Source Comment [facility] Comment on above: Result Comment: Urin veelin Bladder Performed By: #### U A #### [facility] [address] [address] [address] Karen Pierce Triamterene [facility] Comment on above: Performed By: #### U A #### [facility] [address] [place] [address] Dr. Karen Pierce Uric Acid [facility] Comment on above: Performed By: #### U A #### [facility] [address] [place] [address] Dr. Karen Pierce Uric Acid Dihydrate [facility] Comment on above: Performed By: #### U A #### [facility] [address] [address] [address] Karen Pierce Weight 158 mg [facility] Comment on above: Performed By: #### U A #### [facility] [address] [place] [address] Dr. Karen Pierce Xanthine [facility] Comment on above: Performed By: #### U A #### [facility] [address] [address] [address] Karen Pierce ER URINE PROFILEon 3 Bilirubin Ql (U) Negative Normal NEGATIVE [facility] Comment on above: Performed By: #### U MICRO, ERUR #### [facility] [address] [place] [address] Dr. Karen Pierce Clarity (U) CLEAR Normal CLEAR [facility] Comment on above: Performed By: #### U MICRO, ERUR #### [facility] [address] [address] [address] Karen Pierce Color (U) YELLOW Normal YELLOW [facility] Comment on above: Performed By: #### U MICRO, ERUR #### [facility] [address] [address] [address] Karen HILLMAN A micrscopic examina tion will be performed if indicated. Normal [facility] Comment on above: Performed By: #### U MICRO, ERUR #### [facility] [address] [address] [address] Karen Pierce Glucose Ql (U) Negative Normal NEGATIVE [facility] Comment on above: Performed By: #### U MICRO, ERUR #### [facility] [address] [address] [address] Karen Pierce Hemoglobin Ql (U) LARGE Abnormal NEGATIVE [facility] Comment on above: Performed By: #### U MICRO, ERUR #### [facility] [address] [place] [address] Dr. Karen Pierce Ketones Ql (U) Negative Normal NEGATIVE [facility] Comment on above: Performed By: #### U MICRO, ERUR #### [facility] [address] [address] [address] Karen Pierce LEUKOCYTES LARGE Abnormal NEGATIVE [facility] Comment on above: Performed By: #### U MICRO, ERUR #### [facility] [address] [place] [address] Dr. Karen Pierce Nitrite Ql (U) Positive Abnormal NEGATIVE [facility] Comment on above: Performed By: #### U MICRO, ERUR #### [facility] [address] [address] [address] Karen Pierce pH (U) 5.5 [pH] Normal 5-9 [facility] Comment on above: Performed By: #### U MICRO, ERUR #### [facility] [address] [address] [address] Karen Pierce Protein (U) [Mass/Vol] 100 mg/dL Abnormal NEGAT RAJI/ TRACE [facility] Comment on above: Performed By: #### U MICRO, ERUR #### [facility] [address] [place] [address] Dr. Karen Pierce SPEC GRAVITY 1.020 Normal 1.005-<=1. 025 [facility] Comment on above: Performed By: #### U MICRO, ERUR #### [facility] [address] [place] [address] Dr. Karen Pierce UR MICRO IND INDICATED Normal [facility] Comment on above: Performed By: #### U MICRO, ERUR #### [facility] [address] [place] [address] Dr. Karen Pierce Urobilinogen Qn (U) 1.0 {Tonio'U}/dL Normal 0.2 - 1. 0 [facility] Comment on above: Performed By: #### U MICRO, ERUR #### [facility] [address] [place] [address] Dr. Karen Pierce URINE MICROSCOPIC ONLYon BACTERIA SMALL Abnormal NONE SEEN [facility] Comment on above: Performed By: #### U MICRO, ERUR #### [facility] [address] [place] [address] Dr. Karen Pierce Bacteria identified Cx Nom (U) INDICATED Normal [facility] Comment on above: Performed By: #### U MICRO, ERUR #### [facility] [address] [place] [address] Dr. Karen Pierce CAST NONE SEEN Normal NONE SEEN [facility] Comment on above: Performed By: #### U MICRO, ERUR #### [facility] [address] [place] [address] Dr. Karen Pierce Crystals LM Nom (Urine sed) NONE SEEN Normal NONE SEEN [facility] Comment on above: Performed By: #### U MICRO, ERUR #### [facility] [address] [place] [address] Dr. Karen Pierce Epithelial cells LM Ql (Urine sed) NONE SEEN Normal NONE SEEN /RARE [facility] Comment on above: Performed By: #### U MICRO, ERUR #### [facility] [address] [place] [address] Dr. Karen Pierce MUCOUS NONE SEEN Normal NONE SEEN [facility] Comment on above: Performed By: #### U MICRO, ERUR #### [facility] [address] [address] [address] Karen Pierce RBC (U) [#/Vol] /uL Abnormal 0-2 [facility] Comment on above: Performed By: #### U MICRO, ERUR #### [facility] [address] [place] [address] Dr. Karen Pierce WBC 50-75 Abnormal NONE SEEN [facility] Comment on above: Performed By: #### U MICRO, ERUR #### [facility] [address] [place] [address] Dr. Karen Pierce PTH INTACTon 09-05-2022 PTH, Intact 38 pg/mL Normal 15-65 [facility] Comment on above: Performed By: #### P THINT #### [facility] [address] [place] [address] Dr. Karen Pierce FERRITINon 09-04-2022 Ferritin [Mass/Vol] 49.0 ng/mL Normal 26.0-388.0 [facility] Comment on above: Performed By: #### U RTPCR #### [facility] [address] [place] [address] Dr. Karen Pierce IRON AND TIBCon 09-04-2022 % SATURATION 10.3 % Normal [facility] Comment on above: Performed By: #### U RTPCR #### [facility] [address] [place] [address] Dr. Karen Pierce Iron [Mass/Vol] 33.0 ug/dL Critically low 65.0-175.0 [facility] Comment on above: Performed By: #### U RTPCR #### [facility] [address] [place] [address] Dr. Karen Pierce TIBC DIRECT 319.0 ug/dL Normal 250.0-450. 0 [facility] Comment on above: Performed By: #### U RTPCR #### [facility] [address] [place] [address] Dr. Karen Pierce UA RANDOMon 09-04-2022 Bilirubin Ql (U) Negative Normal NEGATIVE [facility] Comment on above: Performed By: #### U A #### [facility] [address] [place] [address] Dr. Karen Pierce Clarity (U) CLEAR Normal CLEAR [facility] Comment on above: Performed By: #### U A #### [facility] [address] [place] [address] Dr. Karen Pierce Color (U) LT. YELLOW Normal YELLOW [facility] Comment on above: Performed By: #### U A #### [facility] [address] [place] [address] Dr. Karen Pierce Glucose Ql (U) Negative Normal NEGATIVE [facility] Comment on above: Performed By: #### U A #### [facility] [address] [place] [address] Dr. Karen Pierce Hemoglobin Ql (U) MODERATE Abnormal NEGATIVE [facility] Comment on above: Performed By: #### U A #### [facility] [address] [place] [address] Dr. Karen Pierce Ketones Ql (U) Negative Normal NEGATIVE [facility] Comment on above: Performed By: #### U A #### [facility] [address] [place] [address] Dr. Karen Pierce LEUKOCYTES LARGE Abnormal NEGATIVE [facility] Comment on above: Performed By: #### U A #### [facility] [address] [place] [address] Dr. Karen Pierce Nitrite Ql (U) Positive Abnormal NEGATIVE [facility] Comment on above: Performed By: #### U A #### [facility] [address] [place] [address] Dr. Karen Pierce pH (U) 6.5 [pH] Normal 5-9 [facility] Comment on above: Performed By: #### U A #### [facility] [address] [place] [address] Dr. Karen Pierce SPEC GRAVITY 1.015 Normal 1.005-<=1. 025 [facility] Comment on above: Performed By: #### U A #### [facility] [address] [place] [address] Dr. Karen Pierce UA PROTEIN 30 mg/dl Abnormal NEGATIVE/ TRACE [facility] Comment on above: Performed By: #### U A #### [facility] [address] [place] [address] Dr. Karen Pierce Urobilinogen Qn (U) 0.2 {Tonio'U}/dL Normal 0.2 - 1. 0 [facility] Comment on above: Performed By: #### U A #### [facility] [address] [place] [address] Dr. Karen Pierce URINE T PROTEIN CREAT RATIOo n 09-04-2022 Protein (U) [Mass/Vol] 65.2 mg/dL Critically high <=12.0 [facility] Comment on above: Performed By: #### U RTPCR #### [facility] [address] [place] [address] Dr. Karen Pierce UR PROT CREAT RAT 0.76 Normal [facility] Comment on above: Performed By: #### U RTPCR #### [facility] [address] [place] [address] Dr. Karen Pierce URINE CREAT 85.95 mg/dL Normal 20.00-300. 00 [facility] Comment on above: Performed By: #### U RTPCR #### [facility] [address] [place] [address] Dr. Karen Pierce VIT B12 AND FOLATEon 023 Cobalamin (Vitamin B12) [Mass/Vol] 279.0 pg/mL Normal 193.0-986. 0 [facility] Comment on above: Performed By: #### U RTPCR #### [facility] [address] [place] [address] Dr. Karen Pierce FOLATE 17.80 ng/mL Normal 8.60-58.90 [facility] Comment on above: Performed By: #### U RTPCR #### [facility] [address] [place] [address] Dr. Karen Pierce VITAMIN D 25 OHon 09-04-2022 VIT D 25-OH 29.9 ng/mL Normal [facility] Comment on above: Performed By: #### U RTPCR #### [facility] [address] [place] [address] Dr. Karen Pierce VIT D RANGES SEE BELOW Normal [facility] Comment on above: Result Comment: <20 ng/mL Vit D deficient 20 - <30 ng/mL Vit D insufficient 30 - 100 ng/mL Vit D sufficient >100 ng/mL Potential Toxicity Performed By: #### U RTPCR #### [facility] [address] [place] [address] Dr. Karen Pierce CBC AUTO DIFFon 09-02-2022 BASO # 0.1 103/ul Normal 0.0-0.1 [facility] Comment on above: Performed By: #### C BC #### [facility] [address] [place] [address] Dr. Karen Pierce Basophils/100 WBC (Bld) 0.7 % Normal 0.2-2.0 [facility] Comment on above: Performed By: #### C BC #### [facility] [address] [place] [address] Dr. Karen Pierce EO # 0.2 103/ul Normal 0.0-0.7 [facility] Comment on above: Performed By: #### C BC #### [facility] [address] [place] [address] Dr. Karen Pierce Eosinophils/100 WBC (Bld) 2.6 % Normal 0.9-7.0 [facility] Comment on above: Performed By: #### C BC #### [facility] [address] [place] [address] Dr. Karen Pierce Erythrocyte distribution width (RBC) [Ratio] 13.8 % Normal 11.0-15.0 [facility] Comment on above: Performed By: #### C BC #### [facility] [address] [place] [address] Dr. Karen Pierce Hematocrit (Bld) [Volume fraction] 38.9 % Critically low 42.0-54.0 [facility] Comment on above: Performed By: #### C BC #### [facility] [address] [place] [address] Dr. Karen Pierce Hemoglobin (Bld) [Mass/Vol] 12.3 g/dL Critically low 14.0-18.0 [facility] Comment on above: Performed By: #### C BC #### [facility] [address] [place] [address] Dr. Karen Pierce IG # 0.01 10e3/ul Normal 0.00-0.03 [facility] Comment on above: Performed By: #### C BC #### [facility] [address] [place] [address] Dr. Karen Pierce IG % 0.1 % Normal 0.0-0.5 [facility] Comment on above: Performed By: #### C BC #### [facility] [address] [place] [address] Dr. Karen Pierce LYMPH # 1.9 103/ul Normal 1.2-3.8 [facility] Comment on above: Performed By: #### C BC #### [facility] [address] [place] [address] Dr. Karen Pierce Lymphocytes/100 WBC (Bld) 27.0 % Normal 20.5-60.0 [facility] Comment on above: Performed By: #### C BC #### [facility] [address] [place] [address] Dr. Karen Pierce MANUAL DIFF REQ NO Normal [facility] Comment on above: Performed By: #### C BC #### [facility] [address] [place] [address] Dr. Karen Pierce MCH (RBC) [Entitic mass] 27.8 pg Normal 25.9-34.0 [facility] Comment on above: Performed By: #### C BC #### [facility] [address] [place] [address] Dr. Karen Pierce MCHC (RBC) [Mass/Vol] 31.6 g/dL Normal 29.9-35.2 [facility] Comment on above: Performed By: #### C BC #### [facility] [address] [place] [address] Dr. Karen Pierce MCV (RBC) [Entitic vol] 87.8 fL Normal 80.0-94.0 [facility] Comment on above: Performed By: #### C BC #### [facility] [address] [address] [address] Karen Pierce MONO # 0.6 103/ul Normal 0.3-0.8 [facility] Comment on above: Performed By: #### C BC #### [facility] [address] [address] [address] Karen Pierce Monocytes/100 WBC (Bld) 8.8 % Normal 1.7-12.0 [facility] Comment on above: Performed By: #### C BC #### [facility] [address] [address] [address] Karen Pierce NEUT # 4.4 103/ul Normal 1.4-6.5 [facility] Comment on above: Performed By: #### C BC #### [facility] [address] [address] [address] Karen Pierce Neutrophils/100 WBC (Bld) 60.8 % Normal 43.0-75.0 [facility] Comment on above: Performed By: #### C BC #### [facility] [address] [address] [address] Karen Pierce Platelet mean volume (Bld) [Entitic vol] 9.9 fL Normal 9.5-13.5 [facility] Comment on above: Performed By: #### C BC #### [facility] [address] [address] [address] Karen Pierce PLT 181 103/ul Normal 150-450 [facility] Comment on above: Performed By: #### C BC #### [facility] [address] [address] [address] Karen Pierce RBC 4.43 106/ul Critically low 4.70-6.10 [facility] Comment on above: Performed By: #### C BC #### [facility] [address] [address] [address] Karen Pierce WBC 7.2 103/ul Normal 4.0-11.0 [facility] Comment on above: Performed By: #### C BC #### [facility] [address] [place] [address] Dr. Karen Pierce MAGNESIUMon 09-02-2022 Magnesium [Mass/Vol] 2.2 mg/dL Normal 1.8-2.4 [facility] Comment on above: Performed By: #### U A #### [facility] [address] [place] [address] Dr. Karen Pierce PHOSPHORUSon 09-02-2022 Phosphate [Mass/Vol] 2.9 mg/dL Normal 2.6-4.7 [facility] Comment on above: Performed By: #### U A #### [facility] [address] [place] [address] Dr. Karen Pierce PROF 14(COMP METB)on 023 Albumin [Mass/Vol] 3.5 g/dL Normal 3.4-5.0 [facility] Comment on above: Performed By: #### P THINT #### [facility] [address] [place] [address] Dr. Karen Pierce Albumin/Globulin [Mass ratio] 1.0 {ratio} Normal [facility] Comment on above: Performed By: #### P THINT #### [facility] [address] [place] [address] Dr. Karen Pierce ALP [Catalytic activity/Vol] 86 U/L Normal 46-116 [facility] Comment on above: Performed By: #### P THINT #### [facility] [address] [place] [address] Dr. Karen Pierce ALT [Catalytic activity/Vol] 17 U/L Normal 16-63 [facility] Comment on above: Performed By: #### P THINT #### [facility] [address] [place] [address] Dr. Karen Pierce Anion gap [Moles/Vol] 13.0 mmol/L Normal [facility] Comment on above: Performed By: #### P THINT #### [facility] [address] [place] [address] Dr. Karen Pierce AST [Catalytic activity/Vol] 14 U/L Critically low 15-37 [facility] Comment on above: Performed By: #### P THINT #### [facility] [address] [address] [address] Karen Pierce Bilirubin [Mass/Vol] 0.3 mg/dL Normal 0.2-1.0 [facility] Comment on above: Performed By: #### P THINT #### [facility] [address] [address] [address] Karen Pierce CO2 [Moles/Vol] 27.6 mmol/L Normal 21.0-32.0 [facility] Comment on above: Performed By: #### P THINT #### [facility] [address] [address] [address] Karen Pierce Creatinine [Mass/Vol] 1.48 mg/dL Critically high 0.70-1.30 [facility] Comment on above: Performed By: #### P THINT #### [facility] [address] [place] [address] Dr. Karen Pierce EGFR-[place] 56 mL/min/1.73m2 Critically low >=60 [facility] Comment on above: Performed By: #### P THINT #### [facility] [address] [place] [address] Dr. Karen Pierce EGFR-NON AF [place]IZ[place] 46 mL/min/1.73m2 Critically low >=60 [facility] Comment on above: Performed By: #### P THINT #### [facility] [address] [address] [address] Karen Pierce Globulin (S) [Mass/Vol] 3.6 g/dL Normal [facility] Comment on above: Performed By: #### P THINT #### [facility] [address] [address] [address] Karen Pierce Glucose [Mass/Vol] 105 mg/dL Normal 74-106 [facility] Comment on above: Performed By: #### P THINT #### [facility] [address] [place] [address] Dr. Karen Pierce Protein [Mass/Vol] 7.1 g/dL Normal 6.4-8.2 [facility] Comment on above: Performed By: #### P THINT #### [facility] [address] [place] [address] Dr. Karen Pierce Sodium [Moles/Vol] 142 mmol/L Normal 136-145 [facility] Comment on above: Performed By: #### P THINT #### [facility] [address] [place] [address] Dr. Karen Pierce Urea nitrogen/Creatinine [Mass ratio] 16.2 mg/mg Normal [facility] Comment on above: Performed By: #### P THINT #### [facility] [address] [place] [address] Dr. Karen Pierce PROF CHEM 8 (BAS METB)on Anion gap [Moles/Vol] 11.1 mmol/L Normal [facility] Comment on above: Performed By: #### U A #### [facility] [address] [place] [address] Dr. Karen Pierce Calcium [Mass/Vol] 8.7 mg/dL Normal 8.5-10.1 [facility] Comment on above: Performed By: #### U A #### [facility] [address] [place] [address] Dr. Karen Pierce Performed By: #### P THINT #### [facility] [address] [place] [address] Dr. Karen Pirece Chloride [Moles/Vol] 106 mmol/L Normal 98-107 [facility] Comment on above: Performed By: #### U A #### [facility] [address] [place] [address] Dr. Karen Pierce Performed By: #### P THINT #### [facility] [address] [place] [address] Dr. Karen Pierce CO2 [Moles/Vol] 28.5 mmol/L Normal 21.0-32.0 [facility] Comment on above: Performed By: #### U A #### [facility] [address] [place] [address] Dr. Karen Pierce Creatinine [Mass/Vol] 1.44 mg/dL Critically high 0.70-1.30 [facility] Comment on above: Performed By: #### U A #### [facility] [address] [address] [address] Karen Pierce EGFR-AF [place] 58 mL/min/1.73m2 Critically low >=60 [facility] Comment on above: Performed By: #### U A #### [facility] [address] [address] [address] Karen Pierce EGFR-NON AF [place] 47 mL/min/1.73m2 Critically low >=60 [facility] Comment on above: Performed By: #### U A #### [facility] [address] [address] [address] Karen Pierce Glucose [Mass/Vol] 104 mg/dL Normal 74-106 [facility] Comment on above: Performed By: #### U A #### [facility] [address] [place] [address] Dr. Karen Pierce Potassium [Moles/Vol] 4.6 mmol/L Normal 3.5-5.1 [facility] Comment on above: Performed By: #### U A #### [facility] [address] [address] [address] Karen Pierce Performed By: #### P THINT #### [facility] [address] [place] [address] Dr. Karen Pierce Sodium [Moles/Vol] 141 mmol/L Normal 136-145 [facility] Comment on above: Performed By: #### U A #### [facility] [address] [place] [address] Dr. Karen Pierce Urea nitrogen [Mass/Vol] 24.0 mg/dL Critically high 7.0-18.0 [facility] Comment on above: Performed By: #### U A #### [facility] [address] [place] [address] Dr. Karen Pierce Performed By: #### P THINT #### [facility] [address] [place] [address] Dr. Karen Pierce Urea nitrogen/Creatinine [Mass ratio] 16.7 mg/mg Normal [facility] Comment on above: Performed By: #### U A #### [facility] [address] [address] [address] Karen Pierce PROTIMEon 09-02-2022 INR Coag (PPP) [Relative time] 1.01 {INR} Normal [facility] Comment on above: Performed By: #### P TT, PT #### [facility] [address] [place] [address] Dr. Karen Pierce INR GUIDELINES SEE BELOW Normal [facility] Comment on above: Result Comment: EMY RED INR: 2.0 - 3.0 CONDITIONS NOT LISTED BELOW 2.5 - 3.5 FOR PROSTHETIC HEART VALVE REPLACEMENT 2.5 - 3.5 RECURRENT THROMBOSIS Performed By: #### P TT, PT #### [facility] [address] [place] [address] Dr. Karen Pierce PT Coag (PPP) [Time] 10.7 s Normal 9.0-11.6 [facility] Comment on above: Performed By: #### P TT, PT #### [facility] [address] [place] [address] Dr. Karen Pierce PTTon 09-02-2022 aPTT Coag (Bld) [Time] 28.2 s Normal 22.3-36.2 [facility] Comment on above: Performed By: #### P TT, PT #### [facility] [address] [place] [address] Dr. Karen Pierce URIC ACID SERUMon 09-02-2022 Urate [Mass/Vol] 4.8 mg/dL Normal 3.5-7.2 [facility] Comment on above: Performed By: #### P THINT #### [facility] [address] [place] [address] Dr. Karen Pierce Creatinine (Bld) [Mass/Vol]O rdered By: Margarito Valentine on 08-16-2022 Creatinine [Mass/Vol] 1.5 mg/dL 0.6-1.3 [facility] Comment on above: ER/ESD physician is notified/shown all ISTAT results.Critical values may be confirmed by laboratory testing ifdeemed necessary by ER attending doctor. Creatinine (Bld) [Mass/Vol]O rdered By: Heather Schwab on 07-24-2022 Creatinine [Mass/Vol] 1.6 mg/dL 0.6-1.3 [facility] Comment on above: ER/ESD physician is notified/shown all ISTAT results.Critical values may be confirmed by laboratory testing ifdeemed necessary by ER attending doctor. No Panel InformationOrdered By: Heather Schwab on 07-24-2022 POC Estimated GFR 51 [facility] Comment on above: GFR estimated refere nce range: According to KDOQI guidelines, <60 ml/min/1.73m2 is sufficient to diagnose a patient with chronic kidney disease. POC Estimated GFR Non- Amer 42 [facility] Blood activated clotting lacho e by coagulation assayOrdered By: Margarito Valentine on 07-02-2022 ACT Coag (Bld) 215 s 90-139 [facility] Comment on above: Reference Range: 90- 139 (Non-heparinized) Basophils Auto (Bld) [#/Vol] Ordered By: Margarito Valentine on 06-21-2022 Basophils (Bld) [#/Vol] 0.1 10*3/uL 0.0-0.2 [facility] Basophils/100 WBC Auto (Bld) Ordered By: Margarito Valentine on 06-21-2022 Basophils/100 WBC (Bld) 0.9 % . [facility] Creatinine and Glomerular fi ltration rate.predicted panel (S/P/Bld)Ordered By: Margarito Valentine on 06-21-2022 Creatinine [Mass/Vol] 1.24 mg/dL 0.64-1.27 [facility] Eosinophils Auto (Bld) [#/Vo l]Ordered By: Margarito Valentine on 06-21-2022 Eosinophils (Bld) [#/Vol] 0.2 10*3/uL 0.0-0.45 [facility] Eosinophils/100 WBC Auto (Bl d)Ordered By: Margarito Valentine on 06-21-2022 Eosinophils/100 WBC (Bld) 2.5 % . [facility] Erythrocyte distribution wid th Auto (RBC) [Ratio]Ordered By: Margarito Valentine on 06-21-2022 Erythrocyte distribution width (RBC) [Ratio] 18.0 % 12.0-14.8 [facility] Estimated glomerular filtrat ion rate (GFR) non- AmericanOrdered By: Margarito Valentine on 06-21-2022 GFR/1.73 sq M.predicted among non-blacks MDRD (S/P/Bld) [Vol rate/Area] 56 mL/Min [facility] Hematocrit Auto (Bld) [Volum e fraction]Ordered By: Margarito Valentine on 06-21-2022 Hematocrit (Bld) [Volume fraction] 37.7 % 38.8-50.0 [facility] Hemoglobin [Mass/volume] in BloodOrdered By: Margarito Valentine on 06-21-2022 Hemoglobin (Bld) [Mass/Vol] 12.3 g/dL 13.0-17.0 [facility] Leukocytes [#/volume] correc phil for nucleated erythrocytes in Blood by Automated counOrdered By: Margarito Valentine on 06-21-2022 WBC corrected for nucl RBC Auto (Bld) [#/Vol] 7.1 10*3/uL 4.1-10.5 [facility] Lymphocytes Auto (Bld) [#/Vo l]Ordered By: Margarito Valentine on 06-21-2022 Lymphocytes (Bld) [#/Vol] 1.3 10*3/uL 1.00-4.8 [facility] Lymphocytes/100 WBC Auto (Bl d)Ordered By: Margarito Valentine on 06-21-2022 Lymphocytes/100 WBC (Bld) 18.7 % . [facility] MCH Auto (RBC) [Entitic mass ]Ordered By: Margarito Valentine on 06-21-2022 MCH (RBC) [Entitic mass] 28.2 pg 27.5-35.2 [facility] MCHC Auto (RBC) [Mass/Vol]Or dered By: Margarito Valentine on 06-21-2022 MCHC (RBC) [Mass/Vol] 32.6 g/dL 32.5-35.6 [facility] MCV Auto (RBC) [Entitic vol] Ordered By: Margarito Valentine on 06-21-2022 MCV (RBC) [Entitic vol] 86.5 fL 83.5-101 [facility] Monocytes Auto (Bld) [#/Vol] Ordered By: Margarito Valentine on 06-21-2022 Monocytes (Bld) [#/Vol] 0.7 10*3/uL 0.0-0.8 [facility] Monocytes/100 WBC Auto (Bld) Ordered By: Margarito Valentine on 06-21-2022 Monocytes/100 WBC (Bld) 10.3 % . [facility] Neutrophils Auto (Bld) [#/Vo l]Ordered By: Margarito Valentine on 06-21-2022 Neutrophils (Bld) [#/Vol] 4.8 10*3/uL 1.8-7.7 [facility] Neutrophils/100 WBC Auto (Bl d)Ordered By: Margarito Valentine on 06-21-2022 Neutrophils/100 WBC (Bld) 67.6 % . [facility] No Panel InformationOrdered By: Margarito Valentine on 06-21-2022 Estimated GFR () > 60 mL/Min [facility] Comment on above: GFR estimated refere nce range: According to KDOQI guidelines, <60 ml/min/1.73m2 is sufficient to diagnose a patient with chronic kidney disease. Pharmacy Creatinine Clearance (Chem N/A [facility] Nucleated erythrocytes [Pres ence] in Blood by Automated countOrdered By: Margarito Valentine on 06-21-2022 Nucleated RBC Auto Ql (Bld) 0.1 /100{WBC} 0-0.5 [facility] Platelet mean volume Auto (B ld) [Entitic vol]Ordered By: Margarito Valentine on 06-21-2022 Platelet mean volume (Bld) [Entitic vol] 8.2 fL 6.6-10.1 [facility] Platelets Auto (Bld) [#/Vol] Ordered By: Margarito Valentine on 06-21-2022 Platelets (Bld) [#/Vol] 149 10*3/uL 150-450 [facility] RBC Auto (Bld) [#/Vol]Ordere d By: Margarito Valentine on 06-21-2022 RBC (Bld) [#/Vol] 4.36 10*6/uL 3.90-5.60 [facility] Serum or plasma anion gap de terminationOrdered By: Margarito Valentine on 06-21-2022 Anion gap [Moles/Vol] 10.8 mmol/L 6.0-15.0 [facility] Serum or plasma calcium elan urement (mass/volume)Ordered By: Margarito Valentine on 06-21-2022 Calcium [Mass/Vol] 8.8 mg/dL 8.2-10.2 [facility] Serum or plasma chloride herb surement (moles/volume)Ordered By: Margarito Valentine on 06-21-2022 Chloride [Moles/Vol] 107 mmol/L 95-114 [facility] Serum or plasma glucose elan urement (mass/volume)Ordered By: Margarito Valentine on 06-21-2022 Glucose [Mass/Vol] 103 mg/dL 70-100 [facility] Comment on above: ADA recommended refe rence rangeRandom Glucose Reference Range is dependent on time and content of last meal. Glucose of more than 200 mg/dL in a nonstressed, ambulatory subject supports the diagnosis of Diabetes Mellitus. Serum or plasma potassium me asurement (moles/volume)Ordered By: Margarito Valentine on 06-21-2022 Potassium [Moles/Vol] 4.2 mmol/L 3.5-5.1 [facility] Serum or plasma sodium measu rement (moles/volume)Ordered By: Margarito Valentine on 06-21-2022 Sodium [Moles/Vol] 138 mmol/L 136-146 [facility] Serum or plasma total carbon dioxide measurement (moles/volume)Ordered By: Margarito Valentine on 06-21-2022 CO2 [Moles/Vol] 24.4 mmol/L 22.0-30.0 [facility] Serum or plasma urea nitroge n measurement (mass/volume)Ordered By: Margarito Valentine on 06-21-2022 Urea nitrogen [Mass/Vol] 18 mg/dL 9-23 [facility] WBC Auto (Bld) [#/Vol]Ordere d By: Margarito Valentine on 06-21-2022 WBC (Bld) [#/Vol] 7.1 10*3/uL 4.1-10.5 [facility] Office Visit (Cardiology)on 06-03-2022 Follow-up visit Diagnoses/Problems [...] Complaint A[place] AND[place] being [place] [facility]. 76-year-old white male who I saw [...] Signs Recorded: 03Jun2022 03:38PM Heart Rate71, Apical [id number], LUE, Sitting Khjquibrd61, LUE, Sitting Height6 ft 2 in Fqpcri553 lb BMI Liwoanvphr49.45 kg/m2 BSA Calculated2.2 Tobacco Useb) No PHQ-2 [...] , regular (more content not included)... Normal [employer] Tobacco Screening.on 023 Adult depression screening assessment No [facility] [employer] 250 DO Work Phone: Fall risk assessment a) No falls within the last year [employer] [facility] [employer] 250 DO Work Phone: Tobacco use status CPHS b) No M -[facility] [employer] DO Work Phone: Basophils Auto (Bld) [#/Vol] Ordered By: Bernabe Cr on 05-22-2022 Basophils (Bld) [#/Vol] 0.1 10*3/uL 0.0-0.2 [facility] Basophils/100 WBC Auto (Bld) Ordered By: Bernabe Cr on 05-22-2022 Basophils/100 WBC (Bld) 1.2 % . [facility] Creatinine and Glomerular fi ltration rate.predicted panel (S/P/Bld)Ordered By: Bernabe Cr on 05-22-2022 Creatinine [Mass/Vol] 1.78 mg/dL 0.64-1.27 [facility] Eosinophils Auto (Bld) [#/Vo l]Ordered By: Bernabe Cr on 05-22-2022 Eosinophils (Bld) [#/Vol] 0.3 10*3/uL 0.0-0.45 [facility] Eosinophils/100 WBC Auto (Bl d)Ordered By: Bernabe Cr on 05-22-2022 Eosinophils/100 WBC (Bld) 3.6 % . [facility] Erythrocyte distribution wid th Auto (RBC) [Ratio]Ordered By: Bernabe Cr on 05-22-2022 Erythrocyte distribution width (RBC) [Ratio] 15.3 % 12.0-14.8 [facility] Estimated glomerular filtrat ion rate (GFR) non- AmericanOrdered By: Bernabe Cr on 05-22-2022 GFR/1.73 sq M.predicted among non-blacks MDRD (S/P/Bld) [Vol rate/Area] 37 mL/Min [facility] Hematocrit Auto (Bld) [Volum e fraction]Ordered By: Bernabe Cr on 05-22-2022 Hematocrit (Bld) [Volume fraction] 36.2 % 38.8-50.0 [facility] Hemoglobin [Mass/volume] in BloodOrdered By: Bernabe Cr on 05-22-2022 Hemoglobin (Bld) [Mass/Vol] 11.7 g/dL 13.0-17.0 [facility] Leukocytes [#/volume] correc phil for nucleated erythrocytes in Blood by Automated counOrdered By: Bernabe Cr on 05-22-2022 WBC corrected for nucl RBC Auto (Bld) [#/Vol] 8.1 10*3/uL 4.1-10.5 [facility] Lymphocytes Auto (Bld) [#/Vo l]Ordered By: Bernabe Cr on 05-22-2022 Lymphocytes (Bld) [#/Vol] 1.4 10*3/uL 1.00-4.8 [facility] Lymphocytes/100 WBC Auto (Bl d)Ordered By: Bernabe Cr on 05-22-2022 Lymphocytes/100 WBC (Bld) 16.9 % . [facility] MCH Auto (RBC) [Entitic mass ]Ordered By: Bernabe Cr on 05-22-2022 MCH (RBC) [Entitic mass] 27.4 pg 27.5-35.2 [facility] MCHC Auto (RBC) [Mass/Vol]Or dered By: Bernabe Cr on 05-22-2022 MCHC (RBC) [Mass/Vol] 32.5 g/dL 32.5-35.6 [facility] MCV Auto (RBC) [Entitic vol] Ordered By: Bernabe Cr on 05-22-2022 MCV (RBC) [Entitic vol] 84.3 fL 83.5-101 [facility] Monocytes Auto (Bld) [#/Vol] Ordered By: Bernabe Cr on 05-22-2022 Monocytes (Bld) [#/Vol] 0.8 10*3/uL 0.0-0.8 [facility] Monocytes/100 WBC Auto (Bld) Ordered By: Bernabe Cr on 05-22-2022 Monocytes/100 WBC (Bld) 10.1 % . [facility] Neutrophils Auto (Bld) [#/Vo l]Ordered By: Bernabe Cr on 05-22-2022 Neutrophils (Bld) [#/Vol] 5.6 10*3/uL 1.8-7.7 [facility] Neutrophils/100 WBC Auto (Bl d)Ordered By: Bernabe Cr on 05-22-2022 Neutrophils/100 WBC (Bld) 68.2 % . [facility] No Panel InformationOrdered By: Bernabe Cr on 05-22-2022 Estimated GFR () 45 mL/Min [facility] Comment on above: GFR estimated refere nce range: According to KDOQI guidelines, <60 ml/min/1.73m2 is sufficient to diagnose a patient with chronic kidney disease. Pharmacy Creatinine Clearance (Chem 39.77 [facility] Nucleated erythrocytes [Pres ence] in Blood by Automated countOrdered By: Bernabe Cr on 05-22-2022 Nucleated RBC Auto Ql (Bld) 0.1 /100{WBC} 0-0.5 [facility] Platelet mean volume Auto (B ld) [Entitic vol]Ordered By: Bernabe Cr on 05-22-2022 Platelet mean volume (Bld) [Entitic vol] 8.7 fL 6.6-10.1 [facility] Platelets Auto (Bld) [#/Vol] Ordered By: Bernabe Cr on 05-22-2022 Platelets (Bld) [#/Vol] 198 10*3/uL 150-450 [facility] RBC Auto (Bld) [#/Vol]Ordere d By: Bernabe Cr on 05-22-2022 RBC (Bld) [#/Vol] 4.29 10*6/uL 3.90-5.60 [facility] Serum or plasma anion gap de terminationOrdered By: Bernabe Cr on 05-22-2022 Anion gap [Moles/Vol] 13.3 mmol/L 6.0-15.0 [facility] Serum or plasma calcium elan urement (mass/volume)Ordered By: Bernabe Cr on 05-22-2022 Calcium [Mass/Vol] 8.3 mg/dL 8.2-10.2 [facility] Serum or plasma chloride herb surement (moles/volume)Ordered By: Bernabe Cr on 05-22-2022 Chloride [Moles/Vol] 104 mmol/L 95-114 [facility] Serum or plasma glucose elan urement (mass/volume)Ordered By: Bernabe Cr on 05-22-2022 Glucose [Mass/Vol] 180 mg/dL 70-100 [facility] Comment on above: ADA recommended refe rence rangeRandom Glucose Reference Range is dependent on time and content of last meal. Glucose of more than 200 mg/dL in a nonstressed, ambulatory subject supports the diagnosis of Diabetes Mellitus. Serum or plasma potassium me asurement (moles/volume)Ordered By: Bernabe Cr on 05-22-2022 Potassium [Moles/Vol] 3.3 mmol/L 3.5-5.1 [facility] Serum or plasma sodium measu rement (moles/volume)Ordered By: Bernabe Cr on 05-22-2022 Sodium [Moles/Vol] 137 mmol/L 136-146 [facility] Serum or plasma total carbon dioxide measurement (moles/volume)Ordered By: Bernabe Cr on 05-22-2022 CO2 [Moles/Vol] 23.0 mmol/L 22.0-30.0 [facility] Serum or plasma urea nitroge n measurement (mass/volume)Ordered By: Bernabe Cr on 05-22-2022 Urea nitrogen [Mass/Vol] 21 mg/dL 9- [facility] WBC Auto (Bld) [#/Vol]Ordere d By: Bernabe Cr on 05-22-2022 WBC (Bld) [#/Vol] 8.1 10*3/uL 4.1-10.5 [facility] No Panel InformationOrdered By: Bernabe Cr on 05-21-2022 25-Hydroxy Vitamin D Total 15.9 ng/mL 30-100 [facility] Comment on above: VITAMIN D STATUS 25( OH)VITAMIN D RANGE (ng/mL) Deficient <20 Insufficient 20 to <30Sufficient 30 to 100Reference: Sixto MF,Federico NC, Palomo LESLIE, et al. Evaluation,treatment, and prevention of vitamin D deficiency; an Endocrine Society clinical practice guideline. JCEM. 2010; 96(7):1911-30. Vitamin C level 0.2 mg/dL 0.4-2.0 [facility] Comment on above: This test was develo ped and its performance characteristicsdetermined by [facility]. It has not been cleared orapproved by the Food and Drug Administration.Vitamin C deficiency is generally defined as plasma orserum concentrations less than 0.2 mg/dL and levels between0.2 and 0.4 mg/dL are considered low.Performed at: - [address] [id number] Director: Mamadou Rodriguez MD, Phone: [phone] Folate [Mass/volume] in Seru m or PlasmaOrdered By: Taz Barnes on 05-20-2022 Folate [Mass/Vol] 5.5 ng/mL >5.9 [facility] Comment on above: Folate reference ran ge: >5.9 ng/mlThe WHO technical consultation on folate and vitamin [id number] has determined that folate concentrations lessthan 4 ng/ml are considered deficient. Laboratory - Chemistry and C hemistry - challengeOrdered By: Taz Barnes on 05-20-2022 Cobalamin (Vitamin B12) [Mass/Vol] 169 pg/mL 180-914 [facility] No Panel InformationOrdered By: Taz Barnes on 05-20-2022 Ova and Parasite Result 1 [facility] Ova and Parasite Result 1 [facility] Ova or parasites identificat ionOrdered By: Taz Barnes on 05-20-2022 Ova and parasites identified LM Nom (Unsp spec) [facility] Ova and parasites identified LM Nom (Unsp spec) [facility] Laboratory - Chemistry and C hemistry - challengeOrdered By: Janice Gonzalez on 05-19-2022 Magnesium [Mass/Vol] 1.7 mg/dL 1.6-2.6 [facility] Automated erythrocytes count in urine sediment (number/area)Ordered By: Taz Barnes on 05-18-2022 RBC Auto (Urine sed) [#/Area] 50-100 [HPF] 0-4 [facility] Automated leukocytes count i n urine sediment (number/area)Ordered By: Taz Barnes on 05-18-2022 WBC Auto (Urine sed) [#/Area] Innumerable [HPF] 0-4 [facility] Automated urine hyaline cast s count (number/volume)Ordered By: Taz Barnes on 05-18-2022 Hyaline casts Auto (U) [#/Vol] None seen [LPF] 0-1 [facility] Bilirubin Test strip Ql (U)O rdered By: Taz Barnes on 05-18-2022 Bilirubin Ql (U) Negative Negative [facility] Casts typing in urine sedime nt by light microscopyOrdered By: Taz Barnes on 05-18-2022 Casts LM Nom (Urine sed) None seen [LPF] None Seen [facility] Color Auto (U)Ordered By: Starr Barnes on 05-18-2022 Color (U) Yellow Yellow [facility] Ketones Auto test strip (U) [Mass/Vol]Ordered By: Taz Barnes on 05-18-2022 Ketones (U) [Mass/Vol] Negative Negative [facility] Nitrite Test strip Ql (U)Ord ered By: Taz Barnes on 05-18-2022 Nitrite Ql (U) Negative Negative [facility] Protein Auto test strip (U) [Mass/Vol]Ordered By: Taz Barnes on 05-18-2022 Protein (U) [Mass/Vol] 100 mg/dL Negative [facility] Specific gravity Auto test s trip (U) [Rel density]Ordered By: Taz Barnes on 05-18-2022 Specific gravity (U) [Rel density] 1.010 1.001-1.03 0 [facility] Squamous epithelial cells de tection in urine sediment by light microscopyOrdered By: Taz Barnes on 05-18-2022 Epithelial cells.squamous LM Ql (Urine sed) 1-2 [HPF] 0-2 [facility] Urine bacteria detection by automated methodOrdered By: Taz Barnes on 05-18-2022 Bacteria Auto Ql (U) None seen None Seen [facility] Urine clarity by refractomet ry automatedOrdered By: Taz Barnes on 05-18-2022 Clarity Refractometry automated (U) Turbid Clear [facility] Urine culture routineOrdered By: Taz Barnes on 05-18-2022 Bacteria identified Cx Nom (U) No Growth 2 Days [facility] Bacteria identified Cx Nom (U) No Growth 2 Days [facility] Urine glucose measurement by automated test strip (mass/volume)Ordered By: Taz Barnes on 05-18-2022 Glucose Auto test strip (U) [Mass/Vol] Normal mg/dL Normal [facility] Urine hemoglobin detection b y automated test stripOrdered By: Taz Barnes on 05-18-2022 Hemoglobin Auto test strip Ql (U) 2+ Negative [facility] Urine leukocyte esterase det ection by automated test stripOrdered By: Taz Barnes on 05-18-2022 Leukocyte esterase Auto test strip Ql (U) 4+ Negative [facility] Urobilinogen Auto test strip (U) [Mass/Vol]Ordered By: Taz Barnes on 05-18-2022 Urobilinogen (U) [Mass/Vol] Normal mg/dL Normal [facility] Yeast detection in urine sed iment by light microscopyOrdered By: Taz Barnes on 05-18-2022 Yeast LM Ql (Urine sed) None seen [HPF] None Se en [facility] pH Auto test strip (U)Ordere d By: Taz Barnes on 05-18-2022 pH (U) 7.5 [pH] 5.0-9.0 [facility] Activated partial thrombopla stin time (aPTT) in platelet poor plasma by coagulation aOrdered By: Taz Barnes on 05-16-2022 aPTT Coag (PPP) [Time] 29.5 s 25.1-36.5 Fi [facility] Body fluid albumin measureme nt (mass/volume)Ordered By: Taz Barnes on 05-16-2022 Albumin (Body fld) [Mass/Vol] 2.9 g/dL 3.2-5.5 [facility] CBC AUTO DIFFon 05-16-2022 BASO # 0.0 103/ul Normal 0.0-0.1 [facility] Comment on above: Performed By: #### C BC #### [facility] [address] [place] [address] Dr. Karen Pierce Basophils/100 WBC (Bld) 0.3 % Normal 0.2-2.0 [facility] Comment on above: Performed By: #### C BC #### [facility] [address] [place] [address] Dr. Karen Pierce EO # 0.1 103/ul Normal 0.0-0.7 [facility] Comment on above: Performed By: #### C BC #### [facility] [address] [address] [address] Karen Pierce Eosinophils/100 WBC (Bld) 0.7 % Critically low 0.9-7.0 [facility] Comment on above: Performed By: #### C BC #### [facility] [address] [address] [address] Karen Pierce Erythrocyte distribution width (RBC) [Ratio] 14.8 % Normal 11.0-15.0 [facility] Comment on above: Performed By: #### C BC #### [facility] [address] [place] [address] Dr. Karen Pierce Hematocrit (Bld) [Volume fraction] 39.4 % Critically low 42.0-54.0 [facility] Comment on above: Performed By: #### C BC #### [facility] [address] [place] [address] Dr. Karen Pierce Hemoglobin (Bld) [Mass/Vol] 12.6 g/dL Critically low 14.0-18.0 [facility] Comment on above: Performed By: #### C BC #### [facility] [address] [place] [address] Dr. Karen Pierce IG # 0.04 10e3/ul Critically high 0.00-0.03 [facility] Comment on above: Performed By: #### C BC #### [facility] [address] [place] [address] Dr. Karen Pierce IG % 0.4 % Normal 0.0-0.5 [facility] Comment on above: Performed By: #### C BC #### [facility] [address] [place] [address] Dr. Karen Pierce LYMPH # 1.2 103/ul Normal 1.2-3.8 [facility] Comment on above: Performed By: #### C BC #### [facility] [address] [place] [address] Dr. Karen Pierce Lymphocytes/100 WBC (Bld) 11.8 % Critically low 20.5-60.0 [facility] Comment on above: Performed By: #### C BC #### [facility] [address] [place] [address] Dr. Karen Pierce MANUAL DIFF REQ NO Normal [facility] Comment on above: Performed By: #### C BC #### [facility] [address] [place] [address] Dr. Karen Pierce MCH (RBC) [Entitic mass] 27.5 pg Normal 25.9-34.0 [facility] Comment on above: Performed By: #### C BC #### [facility] [address] [place] [address] Dr. Karen Pierce MCHC (RBC) [Mass/Vol] 32.0 g/dL Normal 29.9-35.2 [facility] Comment on above: Performed By: #### C BC #### [facility] [address] [place] [address] Dr. Karen Pierce MCV (RBC) [Entitic vol] 86.0 fL Normal 80.0-94.0 [facility] Comment on above: Performed By: #### C BC #### [facility] [address] [place] [address] Dr. Karen Pierce MONO # 1.4 103/ul Critically high 0.3-0.8 [facility] Comment on above: Performed By: #### C BC #### [facility] [address] [place] [address] Dr. Karen Pierce Monocytes/100 WBC (Bld) 13.8 % Critically high 1.7-12. 0 [facility] Comment on above: Performed By: #### C BC #### [facility] [address] [place] [address] Dr. Karen Pierce NEUT # 7.6 103/ul Critically high 1.4-6.5 [facility] Comment on above: Performed By: #### C BC #### [facility] [address] [place] [address] Dr. Karen Pierce Neutrophils/100 WBC (Bld) 73.0 % Normal 43.0-75.0 [facility] Comment on above: Performed By: #### C BC #### [facility] [address] [place] [address] Dr. Karen Pierce Platelet mean volume (Bld) [Entitic vol] 10.6 fL Normal 9.5-13.5 [facility] Comment on above: Performed By: #### C BC #### [facility] [address] [place] [address] Dr. Karen Pierce PLT 193 103/ul Normal 150-450 [facility] Comment on above: Performed By: #### C BC #### [facility] [address] [address] [address] Karen Pierce RBC 4.58 106/ul Critically low 4.70-6.10 [facility] Comment on above: Performed By: #### C BC #### [facility] [id number] Karen Pierce WBC 10.4 103/ul Normal 4.0-11.0 [facility] Comment on above: Performed By: #### C BC #### [facility] [id number] Karen Pierce CT ABD/PELVIS WO CONon [...] LORENZO SCHERER Date: 2022-05-16 09:21 Normal [facility] CULTURE URINEon 05-16-2022 CULTURE URINE Culture Observations : MODERATE GROWTH OF MIXED SKIN JAS. NO POTENTIAL PATHOGENS SEEN. Normal [facility] Comment on above: Performed By: #### U RTPCR #### [facility] [address] [place] [address] Dr. Karen Pierce [facility] SARS-CoV-2 (COVID-19) RNA KARI+probe Ql (Unsp spec) Not detected Normal NOT DETECTED [facility] Comment on above: Result Comment: [...] for this test is supported by the [place] of Health and Human Service's declaration that [...] used). Performed By: #### U A #### [facility] [address] [place] [address] Dr. Karen Pierce Creatinine [Mass/volume] in UrineOrdered By: Taz Barnes on 05-16-2022 Creatinine (U) [Mass/Vol] 68.1 mg/dL [facility] Comment on above: No reference range e stablished ER URINE PROFILEon Bilirubin Ql (U) Negative Normal NEGATIVE [facility] Comment on above: Performed By: #### U RTPCR #### [facility] [address] [place] [address] Dr. Karen Pierce Clarity (U) CLEAR Normal CLEAR [facility] Comment on above: Performed By: #### U RTPCR #### [facility] [address] [place] [address] Dr. Karen Pierce Color (U) YELLOW Normal YELLOW [facility] Comment on above: Performed By: #### U RTPCR #### [facility] [address] [place] [address] Dr. Karen Pierce ERUROLAND A micrscopic examina tion will be performed if indicated. Normal [facility] Comment on above: Performed By: #### U RTPCR #### [facility] [address] [place] [address] Dr. Karen Pierce Glucose Ql (U) Negative Normal NEGATIVE [facility] Comment on above: Performed By: #### U RTPCR #### [facility] [address] [place] [address] Dr. Karen Pierce Hemoglobin Ql (U) MODERATE Abnormal NEGATIVE [facility] Comment on above: Performed By: #### U RTPCR #### [facility] [address] [place] [address] Dr. Karen Pierce Ketones Ql (U) Negative Normal NEGATIVE [facility] Comment on above: Performed By: #### U RTPCR #### [facility] [address] [place] [address] Dr. Karen Pierce LEUKOCYTES LARGE Abnormal NEGATIVE [facility] Comment on above: Performed By: #### U RTPCR #### [facility] [address] [place] [address] Dr. Karen Pierce Nitrite Ql (U) Negative Normal NEGATIVE [facility] Comment on above: Performed By: #### U RTPCR #### [facility] [address] [place] [address] Dr. Karen Pierce pH (U) 5.5 [pH] Normal 5-9 [facility] Comment on above: Performed By: #### U RTPCR #### [facility] [address] [place] [address] Dr. Karen Pierce SPEC GRAVITY <=1.005 Abnormal 1.005-<=1. 025 [facility] Comment on above: Performed By: #### U RTPCR #### [facility] [address] [place] [address] Dr. Karen Pierce UA PROTEIN Negative Normal NEGATIVE/ TRACE [facility] Comment on above: Performed By: #### U RTPCR #### [facility] [address] [place] [address] Dr. Karen Pierce UR MICRO IND INDICATED Normal [facility] Comment on above: Performed By: #### U RTPCR #### [facility] [address] [place] [address] Dr. Karen Pierce Urobilinogen Qn (U) 0.2 {Tonio'U}/dL Normal 0.2 - 1. 0 [facility] Comment on above: Performed By: #### U RTPCR #### [facility] [address] [place] [address] Dr. Karen Pierce Globulin Calc (S) [Mass/Vol] Ordered By: Taz Barnes on 05-16-2022 Globulin (S) [Mass/Vol] 3.5 g/dL [facility] - CoagulationOrde red By: Taz Barnes on 05-16-2022 PT Coag (PPP) [Time] 14.2 s 9.0-12.9 [facility] PROF 14(COMP METB)on 022 Albumin [Mass/Vol] 3.1 g/dL Critically low 3.4-5.0 [facility] Comment on above: Performed By: #### U RTPCR #### [facility] [address] [place] [address] Dr. Karen Pierce Albumin/Globulin [Mass ratio] 0.7 {ratio} Normal [facility] Comment on above: Performed By: #### U RTPCR #### [facility] [address] [place] [address] Dr. Karen Pierce ALP [Catalytic activity/Vol] 96 U/L Normal 46-116 [facility] Comment on above: Performed By: #### U RTPCR #### [facility] [address] [place] [address] Dr. Karen Pierce ALT [Catalytic activity/Vol] 46 U/L Normal 16-63 [facility] Comment on above: Performed By: #### U RTPCR #### [facility] [address] [address] [address] Karen Pierce Anion gap [Moles/Vol] 19.7 mmol/L Normal [facility] Comment on above: Performed By: #### U RTPCR #### [facility] [address] [place] [address] Dr. Karen Pierce AST [Catalytic activity/Vol] 21 U/L Normal 15-37 [facility] Comment on above: Performed By: #### U RTPCR #### [facility] [address] [place] [address] Dr. Karen Pierce Bilirubin [Mass/Vol] 0.3 mg/dL Normal 0.2-1.0 [facility] Comment on above: Performed By: #### U RTPCR #### [facility] [address] [place] [address] Dr. Karen Pierce Calcium [Mass/Vol] 8.9 mg/dL Normal 8.5-10.1 [facility] Comment on above: Performed By: #### U RTPCR #### [facility] [address] [address] [address] Karen Pierce Chloride [Moles/Vol] 101 mmol/L Normal 98-107 [facility] Comment on above: Performed By: #### U RTPCR #### [facility] [address] [address] [address] Karen Pierce CO2 [Moles/Vol] 18.3 mmol/L Critically low 21.0-32.0 [facility] Comment on above: Performed By: #### U RTPCR #### [facility] [address] [address] [address] Karen Pierce Creatinine [Mass/Vol] 8.99 mg/dL Critically high 0.70-1.30 [facility] Comment on above: Performed By: #### U RTPCR #### [facility] [address] [place] [address] Dr. Karen Pierce EGFR-[place] 7 mL/min/1.73m2 Critically low >=60 [facility] Comment on above: Performed By: #### U RTPCR #### [facility] [address] [place] [address] Dr. Karen Pierce EGFR-NON AF [place]IZEN [place] 6 mL/min/1.73m2 Critically low >=60 [facility] Comment on above: Performed By: #### U RTPCR #### [facility] [address] [place] [address] Dr. Karen Pierce Globulin (S) [Mass/Vol] 4.7 g/dL Normal [facility] Comment on above: Performed By: #### U RTPCR #### [facility] [address] [address] [address] Karen Pierce Glucose [Mass/Vol] 110 mg/dL Critically high 74-106 [facility] Comment on above: Performed By: #### U RTPCR #### [facility] [address] [place] [address] Dr. Karen Pierce Potassium [Moles/Vol] 5.0 mmol/L Normal 3.5-5.1 [facility] Comment on above: Performed By: #### U RTPCR #### [facility] [address] [address] [address] Karen Pierce Protein [Mass/Vol] 7.8 g/dL Normal 6.4-8.2 [facility] Comment on above: Performed By: #### U RTPCR #### [facility] [address] [address] [address] Karen Pierce Sodium [Moles/Vol] 134 mmol/L Critically low 136-145 Th [facility] Comment on above: Performed By: #### U RTPCR #### [facility] [address] [address] [address] Karen Pierce Urea nitrogen [Mass/Vol] 129.0 mg/dL Critically high 7.0-18.0 [facility] Comment on above: Performed By: #### U RTPCR #### [facility] [address] [address] [address] Karen Pierce Urea nitrogen/Creatinine [Mass ratio] 14.3 mg/mg Normal [facility] Comment on above: Performed By: #### U RTPCR #### [facility] [address] [address] [address] Karen Pierce Platelet poor plasma interna tional normalized ratio (INR) by coagulation assay (relatOrdered By: Taz Barnes on 05-16-2022 INR Coag (PPP) [Relative time] 1.3 {INR} [facility] Comment on above: INR Therapeutic Rang [...] on 05-16-2022 Protein [Mass/Vol] 6.4 g/dL 6.1-7.9 [facility] Serum or plasma alanine bal otransferase measurement without P-5'-P (enzymatic activiOrdered By: Taz Barnes on 05-16-2022 ALT No additional P-5'-P [Catalytic activity/Vol] 38 U/L 10-60 [facility] Serum or plasma albumin/glob ulin mass ratioOrdered By: Taz Barnes on 05-16-2022 Albumin/Globulin [Mass ratio] 0.8 {ratio} [facility] Serum or plasma alkaline deonte sphatase measurement (enzymatic activity/volume)Ordered By: Taz Barnes on 05-16-2022 ALP [Catalytic activity/Vol] 78 U/L 32-92 [facility] Serum or plasma aspartate am inotransferase measurement (enzymatic activity/volume)Ordered By: Taz Barnes on 05-16-2022 AST [Catalytic activity/Vol] 19 U/L 10-42 [facility] Serum or plasma total biliru bin measurement (mass/volume)Ordered By: Taz Barnes on 05-16-2022 Bilirubin [Mass/Vol] 0.4 mg/dL 0.3-1.2 [facility] URINE MICROSCOPIC ONLYon BACTERIA SMALL Abnormal NONE SEEN [facility] Comment on above: Performed By: #### U RTPCR #### [facility] [address] [place] [address] Dr. Karen Pierce Bacteria identified Cx Nom (U) INDICATED Normal [facility] Comment on above: Performed By: #### U RTPCR #### [facility] [address] [place] [address] Dr. Karen Pierce CAST NONE SEEN Normal NONE SEEN [facility] Comment on above: Performed By: #### U RTPCR #### [facility] [address] [place] [address] Dr. Karen Pierce Crystals LM Nom (Urine sed) NONE SEEN Normal NONE SEEN [facility] Comment on above: Performed By: #### U RTPCR #### [facility] [address] [place] [address] Dr. Karen Pierce Epithelial cells LM Ql (Urine sed) NONE SEEN Normal NONE SEEN /RARE [facility] Comment on above: Performed By: #### U RTPCR #### [facility] [address] [place] [address] Dr. Karen Pierce MUCOUS NONE SEEN Normal NONE SEEN [facility] Comment on above: Performed By: #### U RTPCR #### [facility] [address] [address] [address] Karen Pierce RBC 20-50 Abnormal 0-2 [facility] Comment on above: Performed By: #### U RTPCR #### [facility] [address] [address] [address] Karen Pierce WBC (U) [#/Vol] /uL Abnormal NONE SEEN [facility] Comment on above: Performed By: #### U RTPCR #### [facility] [address] [address] [address] Karen Pierce Urine sodium measurement (mo les/volume)Ordered By: Taz Barnes on 05-16-2022 Sodium (U) [Moles/Vol] 42.0 mmol/L [facility] Comment on above: No reference range [...] LORENZO SCHERER Date: 2022-05-16 09:25 Normal [facility] CBC AUTO DIFFon 05-15-2022 BASO # 0.0 103/ul Normal 0.0-0.1 [facility] Comment on above: Performed By: #### U A #### [facility] [address] [address] [address] Karen Pierce Basophils/100 WBC (Bld) 0.3 % Normal 0.2-2.0 [facility] Comment on above: Performed By: #### U A #### [facility] [address] [place] [address] Dr. Karen Pierce EO # 0.1 103/ul Normal 0.0-0.7 [facility] Comment on above: Performed By: #### U A #### [facility] [address] [place] [address] Dr. Karen Pierce Eosinophils/100 WBC (Bld) 0.7 % Critically low 0.9-7.0 [facility] Comment on above: Performed By: #### U A #### [facility] [address] [place] [address] Dr. Karen Pierce Erythrocyte distribution width (RBC) [Ratio] 14.9 % Normal 11.0-15.0 [facility] Comment on above: Performed By: #### U A #### [facility] [address] [place] [address] Dr. Karen Pierce Hematocrit (Bld) [Volume fraction] 39.8 % Critically low 42.0-54.0 [facility] Comment on above: Performed By: #### U A #### [facility] [address] [place] [address] Dr. Karen Pierce Hemoglobin (Bld) [Mass/Vol] 12.7 g/dL Critically low 14.0-18.0 [facility] Comment on above: Performed By: #### U A #### [facility] [address] [place] [address] Dr. Karen Pierce IG # 0.06 10e3/ul Critically high 0.00-0.03 [facility] Comment on above: Performed By: #### U A #### [facility] [address] [place] [address] Dr. Karen Pierce IG % 0.5 % Normal 0.0-0.5 [facility] Comment on above: Performed By: #### U A #### [facility] [address] [place] [address] Dr. Karen Pierce LYMPH # 0.9 103/ul Critically low 1.2-3.8 [facility] Comment on above: Performed By: #### U A #### [facility] [address] [place] [address] Dr. Karen Pierce Lymphocytes/100 WBC (Bld) 7.1 % Critically low 20.5-60.0 [facility] Comment on above: Performed By: #### U A #### [facility] [address] [place] [address] Dr. Karen Pierce MANUAL DIFF REQ NO Normal [facility] Comment on above: Performed By: #### U A #### [facility] [address] [place] [address] Dr. Karen Pierce MCH (RBC) [Entitic mass] 27.7 pg Normal 25.9-34.0 [facility] Comment on above: Performed By: #### U A #### [facility] [address] [place] [address] Dr. Karen Pierce MCHC (RBC) [Mass/Vol] 31.9 g/dL Normal 29.9-35.2 [facility] Comment on above: Performed By: #### U A #### [facility] [address] [place] [address] Dr. Karen Pierce MCV (RBC) [Entitic vol] 86.7 fL Normal 80.0-94.0 [facility] Comment on above: Performed By: #### U A #### [facility] [address] [place] [address] Dr. Karen Pierce MONO # 1.0 103/ul Critically high 0.3-0.8 [facility] Comment on above: Performed By: #### U A #### [facility] [address] [place] [address] Dr. Karen Pierce Monocytes/100 WBC (Bld) 8.5 % Normal 1.7-12.0 [facility] Comment on above: Performed By: #### U A #### [facility] [address] [place] [address] Dr. Karen Pierce NEUT # 9.9 103/ul Critically high 1.4-6.5 [facility] Comment on above: Performed By: #### U A #### [facility] [address] [address] [address] Karen Pierce Neutrophils/100 WBC (Bld) 82.9 % Critically high 43.0-75.0 [facility] Comment on above: Performed By: #### U A #### [facility] [address] [place] [address] Dr. Karen Pierce Platelet mean volume (Bld) [Entitic vol] 9.7 fL Normal 9.5-13.5 [facility] Comment on above: Performed By: #### U A #### [facility] [address] [place] [address] Dr. Karen Pierce PLT 206 103/ul Normal 150-450 [facility] Comment on above: Performed By: #### U A #### [facility] [address] [place] [address] Dr. Karen Pierce RBC 4.59 106/ul Critically low 4.70-6.10 [facility] Comment on above: Performed By: #### U A #### [facility] [address] [place] [address] Dr. Karen Pierce WBC 11.9 103/ul Critically high 4.0-11.0 [facility] Comment on above: Performed By: #### U A #### [facility] [address] [place] [address] Dr. Karen Pierce LIPASEon 05-15-2022 Lipase [Catalytic activity/Vol] 340.0 U/L Normal 73.0-393.0 [facility] Comment on above: Performed By: #### U A #### [facility] [address] [place] [address] Dr. Karen Pierce PROF 14(COMP METB)on 022 Albumin [Mass/Vol] 3.1 g/dL Critically low 3.4-5.0 e [facility] Comment on above: Performed By: #### U A #### [facility] [address] [place] [address] Dr. Karen Pierce Albumin/Globulin [Mass ratio] 0.7 {ratio} Normal [facility] Comment on above: Performed By: #### U A #### [facility] [address] [place] [address] Dr. Karen Pierce ALP [Catalytic activity/Vol] 105 U/L Normal 46-116 [facility] Comment on above: Performed By: #### U A #### [facility] [address] [place] [address] Dr. Karen Pierce ALT [Catalytic activity/Vol] 49 U/L Normal 16-63 [facility] Comment on above: Performed By: #### U A #### [facility] [address] [place] [address] Dr. Karen Pierce Anion gap [Moles/Vol] 18.4 mmol/L Normal Th [facility] Comment on above: Performed By: #### U A #### [facility] [address] [place] [address] Dr. Karen Pierce AST [Catalytic activity/Vol] 20 U/L Normal 15-37 [facility] Comment on above: Performed By: #### U A #### [facility] [address] [place] [address] Dr. Karen Pierce Bilirubin [Mass/Vol] 0.3 mg/dL Normal 0.2-1.0 [facility] Comment on above: Performed By: #### U A #### [facility] [address] [place] [address] Dr. Karen Pierce Calcium [Mass/Vol] 9.1 mg/dL Normal 8.5-10.1 [facility] Comment on above: Performed By: #### U A #### [facility] [address] [place] [address] Dr. Karen Pierce Chloride [Moles/Vol] 103 mmol/L Normal 98-107 [facility] Comment on above: Performed By: #### U A #### [facility] [address] [place] [address] Dr. Karen Pierce CO2 [Moles/Vol] 20.1 mmol/L Critically low 21.0-32.0 [facility] Comment on above: Performed By: #### U A #### [facility] [address] [place] [address] Dr. Karen Pierce Creatinine [Mass/Vol] 9.58 mg/dL Critically high 0.70-1.30 [facility] Comment on above: Performed By: #### U A #### [facility] [address] [address] [address] Karen Pierce EGFR-[place] 6 mL/min/1.73m2 Critically low >=60 [facility] Comment on above: Performed By: #### U A #### [facility] [address] [address] [address] Karen Pierce EGFR-NON AF CITIZ[place] 5 mL/min/1.73m2 Critically low >=60 [facility] Comment on above: Performed By: #### U A #### [facility] [address] [address] [address] Karen Pierce Globulin (S) [Mass/Vol] 4.6 g/dL Normal [facility] Comment on above: Performed By: #### U A #### [facility] [address] [address] [address] Karen Pierce Glucose [Mass/Vol] 114 mg/dL Critically high 74-106 [facility] Comment on above: Performed By: #### U A #### [facility] [address] [address] [address] Karen Pierce Potassium [Moles/Vol] 5.5 mmol/L Critically high 3.5-5.1 [facility] Comment on above: Performed By: #### U A #### [facility] [address] [address] [address] Karen Pierce Protein [Mass/Vol] 7.7 g/dL Normal 6.4-8.2 [facility] Comment on above: Performed By: #### U A #### [facility] [address] [address] [address] Karen Pierce Sodium [Moles/Vol] 136 mmol/L Normal 136-145 [facility] Comment on above: Performed By: #### U A #### [facility] [address] [address] [address] Karen Pierce Urea nitrogen [Mass/Vol] 134.0 mg/dL Critically high 7.0-18.0 [facility] Comment on above: Performed By: #### U A #### [facility] [address] [place] [address] Dr. Karen Pierce Urea nitrogen/Creatinine [Mass ratio] 14.0 mg/mg Normal [facility] Comment on above: Performed By: #### U A #### [facility] [address] [place] [address] Dr. Karen Pierce PROF CHEM 8 (BAS METB)on Anion gap [Moles/Vol] 12.6 mmol/L Normal [facility] Comment on above: Performed By: #### B MP #### [facility] [address] [place] [address] Dr. Karen Pierce Calcium [Mass/Vol] 8.7 mg/dL Normal 8.5-10.1 [facility] Comment on above: Performed By: #### B MP #### [facility] [address] [place] [address] Dr. Karen Pierce Chloride [Moles/Vol] 103 mmol/L Normal 98-107 [facility] Comment on above: Performed By: #### B MP #### [facility] [address] [place] [address] Dr. Karen Pierce CO2 [Moles/Vol] 27.3 mmol/L Normal 21.0-32.0 [facility] Comment on above: Performed By: #### B MP #### [facility] [address] [place] [address] Dr. Karen Pierce Creatinine [Mass/Vol] 1.26 mg/dL Normal 0.70-1.30 [facility] Comment on above: Performed By: #### B MP #### [facility] [address] [place] [address] Dr. Karen Pierce EGFR-AF [place] >60 Normal >=60 [facility] Comment on above: Performed By: #### B MP #### [facility] [address] [place] [address] Dr. Karen Pierce EGFR-NON AF [place] 55 mL/min/1.73m2 Critically low >=60 [facility] Comment on above: Performed By: #### B MP #### [facility] [address] [address] [address] aKren Pierec Glucose [Mass/Vol] 111 mg/dL Critically high 74-106 [facility] Comment on above: Performed By: #### B MP #### [facility] [address] [address] [address] Karen Pierce Potassium [Moles/Vol] 3.9 mmol/L Normal 3.5-5.1 [facility] Comment on above: Performed By: #### B MP #### [facility] [address] [address] [address] Karen Pierce Sodium [Moles/Vol] 139 mmol/L Normal 136-145 [facility] Comment on above: Performed By: #### B MP #### [facility] [address] [address] [address] Karen Pierce Urea nitrogen [Mass/Vol] 21.0 mg/dL Critically high 7.0-18.0 [facility] Comment on above: Performed By: #### B MP #### [facility] [address] [address] [address] Karen Pierce Urea nitrogen/Creatinine [Mass ratio] 16.7 mg/mg Normal [facility] Comment on above: Performed By: #### B MP #### [facility] [address] [address] [address] Karen Pierce Comprehensive Metabolic [facility] 05-11-2021 Albumin [Mass/Vol] 4.5 g/dL Normal 3.6-5.1 [facility] Comment on above: Performed By: #### C IKLO CARLSON #### [facility] [address], [place] [id number] Albumin/Globulin [Mass ratio] 2.0 {ratio} Normal 1.0-2.5 [facility] Comment on above: Performed By: #### C KILO CARLSON #### [facility] [address], [place] [id number] ALP [Catalytic activity/Vol] 97 U/L Normal 40-129 [facility] Comment on above: Performed By: #### C MP, LIPD #### [facility] [address], [place] [id number] ALT [Catalytic activity/Vol] 18 U/L Normal 9-46 [facility] Comment on above: Result Comment: 04/25 Female reference range changed. Performed By: #### C MP, LIPD #### [facility] [address], [place] [id number] Anion gap [Moles/Vol] 17 mmol/L Normal 12-20 [facility] Comment on above: Result Comment: Effe ctive 05/31/2019 reference range changed. Performed By: #### C ROBYN LIPD #### [facility] [address], [place] [id number] AST [Catalytic activity/Vol] 15 U/L Normal 10-40 [facility] Comment on above: Performed By: #### C MP, LIPD #### [facility] [address], [place] [id number] Bilirubin [Mass/Vol] 0.55 mg/dL Normal 0.30-1.20 [facility] Comment on above: Performed By: #### C ROBYN LIPD #### [facility] [address], [place] [id number] BUN/CREA 17 Ratio Normal 6-22 [facility] Comment on above: Performed By: #### C MP, LIPD #### [facility] [address], [place] [id number] Calcium [Mass/Vol] 9.8 mg/dL Normal 8.6-10.2 [facility] Comment on above: Performed By: #### C MP, LIPD #### [facility] [address], [place] [id number] Chloride [Moles/Vol] 106 mmol/L Normal 98-107 [facility] Comment on above: Performed By: #### C MP, LIPD #### [facility] [address], [place] [id number] CO2 [Moles/Vol] 23 mmol/L Normal 20-31 [facility] Comment on above: Performed By: #### C ROBYN, LIPD #### [facility] [address], [place] [id number] Creatinine [Mass/Vol] 1.2 mg/dL Normal 0.7-1.[address] [facility] Comment on above: Performed By: #### C ROBYN, LIPD #### [facility] [address], [place] [id number] eGFRAA 73 mL/min/1.73m2 Normal >60 [facility] Comment on above: Performed By: #### C ROBYN, LIPD #### [facility] [address] [id number] eGFRNAA 60 mL/min/1.73m2 Low >60 [facility] Comment on above: Performed By: #### C ROBYN, LIPD #### [facility] [address], [place] [id number] Globulin (S) [Mass/Vol] 2.3 g/dL Normal 1.9-3.7 [facility] Comment on above: Performed By: #### C ROBYN, LIPD #### [facility] [address], [place] [id number] Glucose [Mass/Vol] 105 mg/dL High 65-99 [facility] Comment on above: Result Comment: For FASTING Glucose --- ADA reference ranges: Normal 65-99 mg/dl Prediabetes 100-125 Diabetes >/= 126 Performed By: #### C ROBYN, LIPD #### [facility] [address], [place] [id number] Potassium [Moles/Vol] 4.1 mmol/L Normal 3.5-5.[address] [facility] Comment on above: Performed By: #### C ROBYN, LIPD #### [facility] [address], [place] [id number] Protein [Mass/Vol] 6.8 g/dL Normal 6.1-8.1 [facility] Comment on above: Performed By: #### C ROBYN, LIPD #### [facility] [address], [place] [id number] Sodium [Moles/Vol] 142 mmol/L Normal 135-146 [facility] Comment on above: Performed By: #### C ROBYN, LIPD #### [facility] [address], [place] [id number] Urea nitrogen [Mass/Vol] 20 mg/dL Normal 7-25 [facility] Comment on above: Performed By: #### C ROBYN, LIPD #### [facility] [address], [place] [id number] Lipid Panelon 05-11-2021 Cholesterol [Mass/Vol] 109 mg/dL Low 125-[address] [facility]: Result Comment: Low risk < 200mg/dL Borderline risk 201-239 mg/dl High risk > or equal to 240 Performed By: #### C ROBYN, LIPD #### [facility] [address], [place] [id number] Cholesterol in HDL [Mass/Vol] 30 mg/dL Low >40 [facility] Comment on above: Result Comment: High Cardiovascular Risk HDL <40 mg/dL Low Cardiovascular Risk HDL > or equal to 60 mg/dl Performed By: #### C ROBYN, LIPD #### [facility] [address], [place] [id number] Cholesterol in LDL [Mass/Vol] 54 mg/dL Normal [facility] Comment on above: Result Comment: LDL ATP III CLASSIFICATION LDL less than 100 mg/dl Optimal LDL 100-129 mg/dl Near or above optimal LDL 130-159 Borderline high LDL 160-189 High LDL greater than 189 mg/dl Very High Performed By: #### C MP, LIPD #### [facility] [address], [place] [id number] Cholesterol in VLDL [Mass/Vol] 25 mg/dL Normal [facility] Comment on above: Performed By: #### C ROBYN, LIPD #### [facility] [address], [place] [id number] Cholesterol.total/Sonya sterol in HDL [Mass ratio] 4 {ratio} Normal [facility] Comment on above: Performed By: #### C MP, LIPD #### [facility] [address], [place] [id number] Triglyceride [Mass/Vol] 126 mg/dL Normal 30-150 [facility] [place] [facility] Comment on above: Result Comment: TRIG ATPIII CLASSIFICATIONS TRIG less than 150 mg/dl Normal TRIG 150-199 mg/dl Borderline High TRIG 200-500 mg/dl High TRIG greather than 500 mg/dl Very High Performed By: #### C MP, LIPD #### [facility] [address] [place], [place] [id number] Vital Signs Date Time Vital Sign Value Performing Clinician Facility 09-18-2023 10:47-0400 Body height 187.96 cm MD Stanley Emerson Work Phone: [facility] 09-18-2023 10:47-0400 Body mass index (BMI) [Ratio] 28.6 kg/m2 MD Stanley Emerson Work Phone: [facility] 09-18-2023 10:47-0400 Body temperature 97.8 [degF] MD Stanley Emerson Work Phone: [facility] 09-18-2023 10:47-0400 Body weight 101.15 kg MD Stanley Emerson Work Phone: [facility] 09-18-2023 10:47-0400 Diastolic blood pressure 68 mm[Hg] MD Stanley Emerson Work Phone: [facility] 09-18-2023 10:47-0400 Heart rate 64 /min MD Stanley Emerson Work Phone: [facility] 09-18-2023 10:47-0400 Respiratory rate 16 /min MD Stanley Emerson Work Phone: [facility] 09-18-2023 10:47-0400 SaO2% (BldA) [Mass fraction] 98 % MD Satnley Emerson Work Phone: [facility] 09-18-2023 10:47-0400 Systolic blood pressure 118 mm[Hg] MD Stanley Emerson Work Phone: [facility] 06-30-2023 14:17-0500 Blood Pressure Location Katia SAMUELS [facility] 06-30-2023 14:17-0500 Diastolic blood pressure 77 mm[Hg] Katia SAMUELS [facility] 06-30-2023 14:17-0500 Heart rate 70 /min Katia SAMUELS [facility] 06-30-2023 14:17-0500 Respiratory rate 16 /min Katia SAMUELS [facility] 06-30-2023 14:17-0500 Systolic blood pressure 109 mm[Hg] Katia SAMUELS [facility] 04-15-2023 14:00-0500 Body height 187.96 cm Jonhcelestino Inhabi Other [employer] [facility] [employer] Other 04-15-2023 14:00-0500 Body mass index (BMI) [Ratio] 28.73 kg/m2 Celia Inhabi Other [employer] Other 04-15-2023 14:00-0500 Body temperature 96.8 [degF] Celia [employer] Other [employer] Other 04-15-2023 14:00-0500 Body weight 101.52 kg Jonhcelestino [employer] Other [employer] Other 04-15-2023 14:00-0500 Diastolic blood pressure 100 mm[Hg] Celia [employer] Other [employer] Other 04-15-2023 14:00-0500 Respiratory rate 18 /min MedHabcelestino Elias Other [facility] [employer] Other 04-15-2023 14:00-0500 SaO2% (BldA) [Mass fraction] 96 % Celia Ramos Other [facility] [employer] Other 04-15-2023 14:00-0500 Systolic blood pressure 161 mm[Hg] Celia Ramos Other [facility] [employer] Other 03-11-2023 13:38-0400 Blood Pressure Location Katia SAMUELS [facility] 03-11-2023 13:38-0400 Diastolic blood pressure 100 mm[Hg] Katia SAMUELS [facility] 03-11-2023 13:38-0400 Heart rate 72 /min Katia SAMUELS [facility] 03-11-2023 13:38-0400 Systolic blood pressure 150 mm[Hg] Katia SAMUELS [facility] 01-22-2023 09:57-0400 Body height 187.96 cm Stanley Emerson Work Phone: [facility] [employer] 250 DO Work Phone: 01-22-2023 09:57-0400 Body mass index (BMI) [Ratio] 27.35 kg/m2 Stanley Emerson Work Phone: [facility] [employer] 250 DO Work Phone: 01-22-2023 09:57-0400 Body surface area Derived from formula 2.23 m2 Stanley Emerson Work Phone: [facility] [employer] 250 DO Work Phone: 01-22-2023 09:57-0400 Body weight 96.62 kg Stanley Emerson Work Phone: [facility] 250 DO Work Phone: 01-22-2023 09:57-0400 Diastolic blood pressure 88 mm[Hg] Stanley Emerson Work Phone: [facility] 250 DO Work Phone: 01-22-2023 09:57-0400 Heart rate 72 /min Stanley Emerson Work Phone: [facility] 250 DO Work Phone: 01-22-2023 09:57-0400 Systolic blood pressure 126 mm[Hg] Stanley Emerson Work Phone: [facility] 250 DO Work Phone: 08-21-2022 14:30-0400 Body height 187.96 cm Carlene Mezatrey Other [employer] Other 08-21-2022 14:30-0400 Body mass index (BMI) [Ratio] 26.32 kg/m2 Carlene Mezatrey Other [employer] Other 08-21-2022 14:30-0400 Body temperature 97.8 [degF] Carlene Mezatrey Other [employer] Other 08-21-2022 14:30-0400 Body weight 92.99 kg Carlene Mezatrey Other [employer] Other 08-21-2022 14:30-0400 Diastolic blood pressure 82 mm[Hg] Carlene Mezatrey Other [employer] Other 08-21-2022 14:30-0400 SaO2% (BldA) [Mass fraction] 96 % Carlene Kasper Other [employer] [facility] [employer] Other 08-21-2022 14:30-0400 Systolic blood pressure 124 mm[Hg] Carlene Kasper Other [employer] Other 07-31-2022 07:25-0500 Blood Pressure Location Katia [employer] [facility] 07-31-2022 07:25-0500 Diastolic blood pressure 89 mm[Hg] Katia [employer] [facility] 07-31-2022 07:25-0500 Heart rate 70 /min Katia [employer] [facility] 07-31-2022 07:25-0500 Respiratory rate 16 /min Katia [employer] [facility] 07-31-2022 07:25-0500 Systolic blood pressure 130 mm[Hg] Katia SAMUELS [facility] 07-25-2022 09:45-0500 Body height 187.96 cm Margarito Valentine Other [employer] [facility] [employer] Other 07-25-2022 09:45-0500 Body mass index (BMI) [Ratio] 26.32 kg/m2 Margarito Valentine Other [employer] Other 07-25-2022 09:45-0500 Body temperature 96.2 [degF] Margarito Valentine Other [employer] Other 07-25-2022 09:45-0500 Body weight 92.99 kg Margarito Valentine Other [employer] Other 07-25-2022 09:45-0500 Diastolic blood pressure 60 mm[Hg] Margarito Valentine Other [employer] Other 07-25-2022 09:45-0500 SaO2% (BldA) [Mass fraction] 97 % Margarito Valentine Other [employer] Other 07-25-2022 09:45-0500 Systolic blood pressure 110 mm[Hg] Margarito Topetesarina Other [employer] Other 07-03-2022 07:34-0500 Body temperature 98.9 [degF] MD Stanley Emerson Work Phone: [facility] 07-03-2022 07:34-0500 Diastolic blood pressure 91 mm[Hg] MD Stanley Emerson Work Phone: [facility] 07-03-2022 07:34-0500 Heart rate 87 /min MD Stanley Emerson Work Phone: [facility] 07-03-2022 07:34-0500 Respiratory rate 18 /min MD Stanley Emerson Work Phone: [facility] 07-03-2022 07:34-0500 SaO2% (BldA) [Mass fraction] 94 % MD Stanley Emerson Work Phone: [facility] 07-03-2022 07:34-0500 Systolic blood pressure 159 mm[Hg] MD Stanley Emerson Work Phone: [facility] 07-03-2022 05:46-0500 Body weight 94 kg MD Stanley Emerson Work Phone: [facility] 07-02-2022 16:27-0500 Inhaled oxygen flow rate 6 L/min MD Stanley Emerson Work Phone: [facility] 07-02-2022 10:06-0500 Body height 185.42 cm MD Stanley Emerson Work Phone: [facility] 07-02-2022 10:06-0500 Body mass index (BMI) [Ratio] 27.3 kg/m2 MD Stanley Emerson Work Phone: [facility] 06-19-2022 10:00-0500 Body height 187.96 cm Margarito Valentine Other [employer] [facility] [employer] Other 06-19-2022 10:00-0500 Body mass index (BMI) [Ratio] 26.32 kg/m2 Margarito Valentine Other [employer] Other 06-19-2022 10:00-0500 Body temperature 97.8 [degF] Margarito Valentine Other [employer] Other 06-19-2022 10:00-0500 Body weight 92.99 kg Margarito Valentine Other [employer] Other 06-19-2022 10:00-0500 Diastolic blood pressure 68 mm[Hg] Margarito Valentine Other [employer] Other 06-19-2022 10:00-0500 SaO2% (BldA) [Mass fraction] 95 % Margarito Valentine Other [employer] Other 06-19-2022 10:00-0500 Systolic blood pressure 108 mm[Hg] Margarito Valentine Other [employer] Other 06-12-2022 13:07-0500 Body height 187.96 cm MD Stanley Emerson Work Phone: [facility] 06-12-2022 13:07-0500 Body weight 93.44 kg MD Stanley Emerson Work Phone: [facility] 06-06-2022 12:00-0500 Body height 187.96 cm Margarito Valentine Other [employer] Other 06-06-2022 12:00-0500 Body mass index (BMI) [Ratio] 26.32 kg/m2 Margarito Valentine Other [employer] Other 06-06-2022 12:00-0500 Body temperature 97.2 [degF] Margarito Valentine Other [employer] Other 06-06-2022 12:00-0500 Body weight 92.99 kg Margarito Valentine Other [employer] Other 06-06-2022 12:00-0500 Diastolic blood pressure 70 mm[Hg] Margarito Valentine Other [employer] Other 06-06-2022 12:00-0500 SaO2% (BldA) [Mass fraction] 98 % Margarito Valentine Other [employer] Other 06-06-2022 12:00-0500 Systolic blood pressure 108 mm[Hg] Margarito Valentine Other [employer] Other 06-04-2022 12:00-0500 Body height 187.96 cm Celia Ramos Other [employer] Other 06-04-2022 12:00-0500 Body mass index (BMI) [Ratio] 26.42 kg/m2 Celia Ramos Other [employer] Other 06-04-2022 12:00-0500 Body temperature 96.6 [degF] Celia Ramos Other [employer] Other 06-04-2022 12:00-0500 Body weight 93.35 kg Celia Ramos Other [employer] Other 06-04-2022 12:00-0500 Diastolic blood pressure 70 mm[Hg] Celia Ramos Other [employer] Other 06-04-2022 12:00-0500 Respiratory rate 20 /min Celia Ramos Other [employer] Other 06-04-2022 12:00-0500 SaO2% (BldA) [Mass fraction] 98 % Celia Ramos Other [employer] Other 06-04-2022 12:00-0500 Systolic blood pressure 100 mm[Hg] Celia Ramos Other [employer] Other 06-03-2022 15:38-0500 Body height 187.96 cm Stanley Emerson Work Phone: [facility] [employer] 250 DO Work Phone: 06-03-2022 15:38-0500 Body mass index (BMI) [Ratio] 26.45 kg/m2 Stanley Emerson Work Phone: [facility] [employer] 250 DO Work Phone: 06-03-2022 15:38-0500 Body surface area Derived from formula 2.2 m2 Stanley Emerson Work Phone: [facility] [employer] 250 DO Work Phone: 06-03-2022 15:38-0500 Body weight 93.44 kg Stanley Emerson Work Phone: [facility] 250 DO Work Phone: 06-03-2022 15:38-0500 Diastolic blood pressure 78 mm[Hg] Stanley Emerson Work Phone: [facility] 250 DO Work Phone: 06-03-2022 15:38-0500 Heart rate 71 /min Stanley Emerson Work Phone: [facility] 250 DO Work Phone: 06-03-2022 15:38-0500 Systolic blood pressure 106 mm[Hg] Stanley Emerson Work Phone: [facility] 250 DO Work Phone: 05-22-2022 11:53-0500 Body temperature 98.8 [degF] MD Stanley Emerson Work Phone: [facility] 05-22-2022 11:53-0500 Diastolic blood pressure 72 mm[Hg] MD Stanley Emerson Work Phone: [facility] 05-22-2022 11:53-0500 Heart rate 78 /min MD Stanley Emerson Work Phone: [facility] 05-22-2022 11:53-0500 Respiratory rate 16 /min MD Stanley Emerson Work Phone: [facility] 05-22-2022 11:53-0500 SaO2% (BldA) [Mass fraction] 97 % MD Stanley Emerson Work Phone: [facility] 05-22-2022 11:53-0500 Systolic blood pressure 108 mm[Hg] MD Stanley Emerson Work Phone: [facility] 05-22-2022 06:02-0500 Body weight 88.8 kg MD Stanley Emerson Work Phone: [facility] 05-21-2022 11:48-0500 63 1 Stanley Emerson Work Phone: [facility] 250 DO Work Phone: Comment on above: [id number] 05-17-2022 12:08-0500 Body height 187.96 cm MD Stanley Emerson Work Phone: [facility] Encounters Encounter Date Encounter Type Care Provider Facility Start: 09-18-2023 Bradyarrhythmia MD Stanley billingsley Work Phone: [facility] Start: 09-18-2023 End: 09-18-2023 ambulatory MD Stanley Emerson Work Phone: [facility] Work Phone: Start: 09-18-2023 End: 09-18-2023 Patient encounter procedure MD Stanley Emerson Work Phone: [facility] Work Phone: Start: 09-11-2023 End: 09-12-2023 ambulatory Katia SAMUELS Facility: [place] Start: 09-11-2023 End: 09-11-2023 Patient encounter procedure Katia SAMUELS [facility] Start: 08-18-2023 End: 08-18-2023 ambulatory Margarito Valentine Facility:[facility] Start: 08-18-2023 End: 08-18-2023 ambulatory MD Stanley Emerson Work Phone: [facility] Work Phone: Start: 08-18-2023 End: 08-18-2023 Patient encounter procedure MD Stanley Emerson Work Phone: [facility]-CT Scan [facility] [place] Work Phone: Start: 08-15-2023 End: 08-16-2023 ambulatory Katia SAMUELS Facility:[facility] [place] Start: 08-15-2023 End: 08-15-2023 Patient encounter procedure Katia SAMUELS [facility] Start: 08-04-2023 End: 08-04-2023 ambulatory EDLUDY J HEMEYER Not Available Start: 07-01-2023 End: 07-02-2023 ambulatory Katia SAMUELS Facility: [place] Start: 06-30-2023 End: 07-01-2023 ambulatory Katia SAMUELS Facility: [place] Start: 06-30-2023 End: 06-30-2023 Patient encounter procedure Katia SAMUELS [facility] Start: 06-16-2023 End: 06-17-2023 ambulatory Katia SAMUELS Facility: [place] Start: 06-16-2023 End: 06-16-2023 Patient encounter procedure Katia SAMUELS [facility] [place] Start: 06-10-2023 End: 06-11-2023 ambulatory Katia SAMUELS [place] [place] Start: 06-10-2023 End: 06-10-2023 Patient encounter procedure Katia SAMUELS [facility] Start: 05-28-2023 End: 05-28-2023 ambulatory EDWARD J HEMEYER Not Available Start: 05-12-2023 End: 05-12-2023 ambulatory EDWARD J HEMEYER Not Available Start: 05-06-2023 End: 05-06-2023 ambulatory Celia Ramos Other [employer] Other Start: 05-06-2023 Telephone encounter Celia Ramos [facility] Start: 04-16-2023 End: 04-16-2023 ambulatory Celia Ramos Other [facility] [employer] Other Start: 04-16-2023 Telephone encounter Celia Ramos [facility] Start: 04-15-2023 End: 04-15-2023 ambulatory Celia Ramos Other [facility] [employer] Other Start: 04-15-2023 Office outpatient vi sit 25 minutes Celia Ramos [facility] Start: 04-08-2023 End: 04-08-2023 ambulatory Teo Stokes Facility:[facility] Start: 04-08-2023 End: 04-08-2023 ambulatory MD Stanley Emerson Work Phone: [facility] Work Phone: Start: 04-08-2023 End: 04-08-2023 Patient encounter procedure MD Stanley Emerson Work Phone: [facility]-Lab [facility] Start: 03-11-2023 End: 03-12-2023 ambulatory Katia SAMUELS [place] [place] Start: 03-11-2023 End: 03-11-2023 Lab Drop off Katia SAMUELS [facility] Start: 03-11-2023 End: 03-11-2023 Patient encounter procedure Katia SAMUELS [facility] Start: 01-22-2023 Office outpatient vi sit 25 minutes Stanley Emerson Work Phone: [place] [address] DO Work Phone: Start: 01-22-[address] Teo Stokes Facility:[id number] Start: 12-25-2022 End: 12-26-2022 ambulatory Katia SAMUELS [place] [place] Start: 12-25-2022 End: 12-25-2022 Patient encounter procedure Katia SAMUELS [facility] Start: 12-10-2022 End: 12-11-2022 ambulatory Katia SAMUELS [place] [place] Start: 12-10-2022 End: 12-10-2022 Lab Drop off Katia SAMUELS [facility] Start: 12-10-2022 End: 12-11-2022 ambulatory Katia Isabel ARLENE Facility:[facility] Start: 12-10-2022 End: 12-10-2022 Patient encounter procedure Katia Isabel SAMUELS [facility] [place] Start: 10-04-2022 End: 10-05-2022 ambulatory Katia SAMUELS Facility:[facility] Start: 10-04-2022 End: 10-04-2022 Patient encounter procedure Katia Hall RALENE [facility] [place] Start: 09-18-2022 End: 09-18-2022 Patient encounter procedure Katia Hall ARLENE [facility] [place] Start: 09-15-2022 End: 09-15-[address] SATNLEY EMERSON . Facility:[facility] Start: 09-12-2022 End: 09-12-[address] STANLEY EMERSON . Facility:[facility] Start: 09-08-2022 Encounter for preprocedural laboratory examination CELIA RAMOS [facility] Start: 09-04-2022 End: 09-05-[address] STANLEY EMERSON . Facility:[facility] Start: 09-04-2022 Encounter for preprocedural cardiovascular examination DR KATIA SAMUELS . [facility] Start: 09-02-2022 End: 09-03-[address] STANLEY EMERSON . Facility:[facility] Start: 09-02-2022 End: 09-03-2022 Encounter for preprocedural laboratory examination DR STANLEY EMERSON . Facility:[facility] Start: 09-02-2022 End: 09-03-[address] STANLEY EMERSON . Facility:[facility] Start: 09-02-2022 End: 09-03-2022 Encounter for preprocedural cardiovascular examination DR STANLEY EMERSON . Facility:[facility] Start: 08-21-2022 End: 08-21-2022 ambulatory Carlene Kasper Other [employer] Other Start: 08-21-2022 Follow-up encounter Carlene Dickerson [facility] Start: 08-16-2022 End: 08-16-2022 ambulatory MD Stanley Emerson Work Phone: [facility] Work Phone: Start: 08-16-2022 End: 08-16-2022 Patient encounter procedure MD Stanley Emerson Work Phone: [facility]-CT Scan [facility] [place] Work Phone: Start: 07-31-2022 End: 07-31-2022 Patient encounter procedure Katia SAMUELS [facility] Start: 07-25-2022 End: 07-25-2022 ambulatory Margarito Valentine Other [employer] Other Start: 07-25-2022 Postop follow up vis it related to original px Margarito Valentine [facility] Start: 07-24-2022 End: 07-24-2022 ambulatory MD Stanley Emerson Work Phone: [facility] Work Phone: Start: 07-24-2022 End: 07-24-2022 Patient encounter procedure MD Stanley Emerson Work Phone: [facility]-MRI [facility] [place] Work Phone: Start: 07-02-2022 End: 07-03-2022 Evaluation and management of inpatient MD Stanley Emerson Work Phone: [facility] [place] [facility] Work Phone: Start: 06-21-2022 End: 06-21-2022 Patient encounter procedure MD Stanley Emerson Work Phone: [facility]-Pre-Surgical Testing Work Phone: Start: 06-19-2022 End: 06-19-2022 ambulatory Margarito Valentine Other [place] Other Start: 06-19-2022 Office outpatient vi sit 25 minutes Margarito Valentine [facility] Start: 06-12-2022 End: 06-12-2022 ambulatory MD Stanley Emerson Work Phone: [facility] Work Phone: Start: 06-12-2022 End: 06-12-2022 Patient encounter procedure MD Stanley Emerson Work Phone: [facility]-CT Scan [facility] [place] Work Phone: Start: 06-11-2022 End: 06-11-2022 Patient encounter procedure HEATHER CSHWAB [facility] Start: 06-06-2022 End: 06-06-2022 ambulatory Margarito Valentine Other [employer] Other Start: 06-06-2022 Office outpatient vi sit 25 minutes Margarito Valentine [facility] Start: 06-04-2022 End: 06-04-2022 ambulatory Azcelestino Bakhous Other [employer] Other Start: 06-04-2022 Office outpatient vi sit 25 minutes Aziz Bakhous [facility] Ne[facility]rology Tom Start: 06-03-2022 Office outpatient vi sit 25 minutes Stanley Emerson Work Phone: [facility] 250 DO Work Phone: Start: 06-03-[address] Stanley Emerson Facility:[id number] Start: 05-21-[address] Stanley Emerson Facility:[id number] Start: 05-20-[address] Stanley Emerson Facility:[id number] Start: 05-19-[address] Teo Stokes Facility:[id number] Start: 05-18-[address] Teo Stokes Facility:[id number] Start: 05-17-[address] Stanley Emerson Facility:[id number] Start: 05-17-2022 Bradyarrhythmia MD Stanley billingsley Work Phone: [facility] Start: 05-17-[address] Teo Stokes Facility:[id number] Start: 05-16-2022 End: 05-22-2022 Encounter for preprocedural cardiovascular examination MD Stanley Emerson Work Phone: [facility] Start: 05-16-2022 End: 05-22-2022 Evaluation and management of inpatient MD Stanley Emerson Work Phone: [facility] [place] [facility] Work Phone: Start: 05-16-2022 End: 05-16-[address] STANLEY EMERSON . Facility:[facility] Start: 05-15-2022 End: 05-16-[address] STANLEY EMERSON . Facility:[facility] Start: 01-04-2022 End: 01-04-[address] STANLEY EMERSON . Facility:[facility] Patient encounter status Stanley Emerson Work Phone: [facility] 250 DO Work Phone: End: 01-22-2023 Patient encounter status Stanley Emerson Work Phone: [facility] 250 DO Work Phone: Procedures Date Procedure [...] Teo Stokes, Status: Pen, Time: 11:50 AM [facility] 250 DO Work Phone: Start: 10-03-2023 ambulatory Ambulatory Facility:[facility] Start: 04-08-2023 Bacteria identified in Urine by Culture [facility] Start: 12-10-2022 FUV, Provider: Teo Stokes, Status: Pen, Time: 10:10 AM FUV, Provider: Teo Stokes, Status: Pen, Time: 10:10 AM [facility] 250 DO Work Phone: Start: 07-24-2022 MR Abdomen WO and W contrast IV [facility] Start: 07-24-2022 MRI of abdomen with contrast MR abdomen wo/w con [facility] Start: 07-03-2022 [facility] Start: 07-02-2022 Fluoroscopy of Aorta and Bilateral Lower Extremity Arteries using Low Osmolar Contrast Fluoroscopy of Aorta and Bilateral Lower Extremity Arteries using Low Osmolar Contrast [facility] Start: 07-02-2022 Restriction of Abdominal Aorta with Intraluminal Device, Percutaneous Approach Restriction of Abdominal Aorta with Intraluminal Device, Percutaneous Approach [facility] Start: 05-22-2022 [facility] Start: 05-20-2022 Evaluation procedure [facility] Start: 05-19-2022 [facility] Start: 05-17-2022 End: 05-17-2022 [facility] Start: 05-16-2022 Referral to search and rescue officer [facility] Start: 05-16-2022 Referral to vascular surgeon [facility] Start: 05-16-2022 Hospital admission [facility] Patient Education [facility] Work Phone: Patient referral [facility] Work Phone: [facility] Immunizations Immunization Date Immunization Notes Care Provider Markus russell 03-29-2022 Pfizer COVID-19 Vac Bivalent 30 MCG/0.3ML Intramuscular Suspension Stanley Emerson Work Phone: [facility] 03-16-2022 influenza virus vacc ine, unspecified formulation Katiadesi SAMUELS [facility] 03-16-2022 influenza, seasonal, injectable Stanley Emerson Work Phone: [facility] 250 DO Work Phone: 03-06-2022 Fluzone High-Dose Quadrivalent 0.7 ML Intramuscular Suspension Prefilled Syringe Stanley Emerson Work Phone: [facility] 250 DO Work Phone: 03-06-2022 influenza virus vacc ine, unspecified formulation HEATHER SCHWAB [facility] 10-03-2021 Comirnaty 30 MCG/0.3 ML Intramuscular Suspension Stanley Emerson Work Phone: [facility] 250 DO Work Phone: 10-03-2021 COVID-19 mRNATaniya (Pfizer) MD Stanley Emerson Work Phone: [facility] 10-03-2021 SARS-CoV-2 mRNA ([id number] e) vaccine HEATHER SCHWAB [facility] 04-23-2021 pneumococcal polysaccharide vaccine, 23 valent Stanley Emerson Work Phone: [facility] 02-22-2021 influenza virus vacc ine, unspecified formulation Katia SAMUELS [facility] 02-22-2021 influenza, injectabl e, quadrivalent, preservative free Stanley Emerson Work Phone: [facility] 250 DO Work Phone: 02-21-2021 Pfizer-BioNTech COVI D-19 Vacc 30 MCG/0.3ML Intramuscular Suspension [employer] Work Phone: [facility] Comment on above: Result Comment: 2022: [id number] 07-28-2020 Pfizer-BioNTech COVI D-19 Vacc 30 MCG/0.3ML Intramuscular Suspension [employer]udy Delivery Agent Work Phone: [facility] 07-07-2020 Pfizer-BioNTech COVI D-19 Vacc 30 MCG/0.3ML Intramuscular Suspension [employer] Delivery Agent Work Phone: [facility] 02-22-2020 influenza virus vacc ine, unspecified formulation HEATHER SCHWAB [facility] 02-22-2020 Seasonal, quadrivale nt, recombinant, injectable influenza vaccine, preservative free [employer] Delivery Agent Work Phone: [facility] 250 DO Work Phone: Payers Date Payer Category Payer Self-pay 2017 Medicare [id number] 1961 Medicare [id number] 1959 Private Health Insurance [id number] 1945 Unknown [id number] 1943 Unknown [id number] 1943 Unknown [id number] 194 Unknown [id number] 1943 Unknown [id number] 2.16.840.1.496079.3.579.2.593 1943 Unknown [id number] 2.16.840.1.285994.3.579.2.593 1943 Unknown [id number] 2.16.840.1.226214.3.579.2.593 1943 Unknown [id number] 2.840.1.428174.3.579.2.593 1943 Unknown [id number] 2.840.1.655710.3.579.2.356 1943 Unknown [id number] 2.840.1.074867.3.579.2.356 1943 Unknown [id number] 2.840.1.491953.3.579.2.356 1943 Unknown [id number] 2.840.1.877949.3.579.2.356 1943 Unknown [id number] 2.840.1.088591.3.579.2.356 1943 Unknown [id number] 2.840.1.108966.3.579.2.356 1943 Unknown [id number] .840.1.842359.3.579.2.356 1943 Unknown [id number] 2.840.1.045660.3.579.2.356 1943 Unknown [id number] 2.840.1.094380.3.579.2.125 9 1943 Unknown [id number] 2.16840.1.236246.3.579.2.125 9 1943 Unknown [id number] 2.16.840.1.759807.3.579.2.125 9 1943 Unknown [id number] 2.16.840.1.505939.3.579.2.727 1943 Unknown [id number] 2.16.840.1.543140.3.579.2.727 1943 Unknown [id number] 2.16.840.1.007044.3.579.2.727 1943 Unknown [id number] 2.16.840.1.027592.3.579.2.727 1943 Unknown [id number] 2.16.840.1.057725.3.579.2.727 1943 Unknown [id number] 2.16.840.1.057193.3.579.2.727 1943 Unknown [id number] 2.16.840.1.465071.3.579.2.727 1943 Unknown [id number] 2.16.840.1.783315.3.579.2.727 1943 Unknown [id number] 2.16.840.1.990789.3.579.2.727 1943 Unknown [id number] 2.16.840.1.025928.3.579.2.72 1943 Unknown [id number] 2.16.840.1.629350.3.579.2.727 1943 Unknown [id number] 2.16.840.1.963174.3.579.2.727 1943 Unknown [id number] 2.16.840.1.309238.3.579.2.727 Medicare Medicare Nonpatient [id number] Unknown Unknown [facility] [id number] Unknown [id number] 2.16.840.1.060220.3.579.2.531 Unknown [id number] 2.16.840.1.077985.3.579.2.531 Social History Date Type Detail Facility Daily caffeine consumption Daily caffeine consumption -[facility] 250 DO Work Phone: Comment on above: 3-4 cups coffee kellen y; 05/17/23 quit; 1/2 dozen cigarettes ; Start: 06-11-2022 End: 03-11-2023 Tobacco smoking status Heavy tobacco smoker (finding) [facility] Sex Assigned At Male [facility] Start: 05-17-2022 [facility] Start: 1945 Sex Assigned At Male [facility] Start: 07-02-2022 End: 07-02-2022 Tobacco smoking status NHIS Ex-smoker (finding) [facility] Tobacco smoking status Never [facility] Medical Equipment Procedure Code Equipment Code Equipment Origin al Text Equipment Identifier Dates Percutaneous endovascular repair of abdominal aortic aneurysm (AAA) Abdominal aorta endovascular stent-graft ()[id number] FDA Start: 07-02-2022 Percutaneous endovascular repair of abdominal aortic aneurysm (AAA) Abdominal aorta endovascular stent-graft ()[id number] FDA Start: 07-02-2022 Percutaneous endovascular repair of abdominal aortic aneurysm (AAA) Abdominal aorta endovascular stent-graft ()[id number] FDA Start: 07-02-2022 Percutaneous endovascular repair of abdominal aortic aneurysm (AAA) Soft-tissue/mesh anchor, non-bioabsorbable ()[id number] FDA Start: 07-02-2022 Goals Date Patient Goal Desired Activity /State Functional Status Date Assessment Result Facility 02-05-2024 Functional Status N/A [facility] [place] 06-10-2023 Functional Status N/A [facility] 03-11-2023 Functional Status N/A [facility] 12-10-2022 Functional Status N/A [facility] 09-18-2022 Functional Status N/A [facility] 07-31-2022 Functional Status N/A [facility] 07-03-2022 Functional status Patient at Baseline [facility] Work Phone: 06-11-2022 Functional Status N/A [facility] 05-16-2022 Functional status Patient Not at Baseline [facility] Work Phone: Mental Status Date Assessment Result Facility 07-03-2022 Cognitive function Cognitive Sta tus Patient at Baseline [facility] Work Phone: 05-16-2022 Cognitive function Cognitive Sta tus Patient at Baseline [facility] Work Phone: Clinical Notes [...] Follow these instructions at home: Medicines Take cxnj-edc-mxgzbsj and prescription medicines only as told by [...] provider. Document Revised: 01/31/2021 Document Reviewed: 01/31/2021 [employer] Patient Education 2022 [employer]. Follow Up Care 05/06/2023 11:11:29 With:ARLNEE CASILLAS, Katia Hall, URL Address: [facility] [address] , [place] [address] [id number] When: Unknown Comments:1 day for catheter removal [facility] 06-10-2023 Note [id number] [facility] 06-10-2023 Hospital Discharg e instructions Patient Education [...] cotton underwear to absorb moisture and keep tubing drier. 6. Keep the drainage bag below [...] Address: [facility] [address] [place] [address]- Business (1) When:06/24/2023 15:15:55 Comments:for zapien removal [facility] 06-10-2023 Note Custom Rezum Post-Procedure Instructions [...] using a circul (more content not included)... [facility] 05-06-2023 Evaluation note Encounter Date Diagnosis Assessment Notes Apr, Primary hypertension (ICD-10 - I10) [facility] Other 11-21-2023 Evaluation note* Encounter Date Diagnosis [...] supplement. I asked the patient to continue vjop-xqz-qvqystw iron supplement once or twice daily Mar, Primary hypertension (ICD-10 - I10) BP is elevated. Will start Norvasc 5 mg PO daily. i asked the patient to monitor Bp closely with tapering steroid dose [facility] Other 10-17-2023 Hospital Discharge instructions Patient Education [...] including vitamins, herbs, eye drops, creams, and lkkg-rxv-vwjjozv medicines. Any problems you or family members [...] provider tells you to take them. Taking hzqi-wkl-uaefbun medicines, vitamins, herbs, and supplements. Surgery safety [...] provider. Document Revised: 02/05/2022 Document Reviewed: 02/05/2022 [employer] Patient Education 2022 [employer]. 03/11/2023 14:15:06 Benign Prostatic Hyperplasia Benign Prostatic [...] urethra. Follow these instructions at home: Take qbyf-izf-fpsmgyo and prescription medicines only as told by [...] provider. Document Revised: 11/28/2021 Document Reviewed: 11/28/2021 [employer] Patient Education 2022 [employer]. Follow Up Care 02/07/2023 16:01:50 With:ARLENE CASILLAS, Katia Hall, URL Address: [facility] [address] , [place] [address]- When:Within 3 Month(s) Comments:Sched cysto/FISH/Cytol/BT check [facility] [place] 10-17-2023 Evaluation + Plan note Diagnostic Tests Pending * UroVysion Fish and Urine Cyto ([facility]) 03/11/23 [facility]08-15-2023 Note [id number]:127[facility] 12-10-2022 Evaluation + Plan note Diagnostic Tests Pending * UroVysion Fish and Urine Cyto ([facility]) 12/10/22 [facility]07-18-2023 Hospital Discharge instructions Patient Education 12/10/2022 [...] if anything looks unusual. Men with a yscqef-xghl-ltmovr risk for skin cancer may want to see a prevention specialist (table worker packager) for an annual body check. What are the benefits of screening? Cancer screening is done to look for cancer in the very early stages, before it spreads and becomesharder to treat and before you would start to notice symptoms. Finding cancer early improves the chances of successful treatment. It may save your life. Where to find more information [place] [employer]: www.cancer.org Centers for Disease Control and Prevention: www.cdc.gov National Cancer [employer]: www.cancer.gov Contact a health care provider if: [...] Document Reviewed: 04/07/2020 Elsevier Patient Education 2022 [employer] Follow Up Care 11/15/2022 14:27:10 With:ARLENE CASILLAS, Katia Hall, URL Address: [facility] [address] , [place] [address]- When: Unknown [facility] 04-26-2023 Hospital Discharge instructions Patient Education 09/18/2022 [...] cells. Follow these instructions at home: Take ytyj-fhx-lrekfnh and prescription medicines only as told by [...] is important. Where to find more information [place] [employer] (ACS): cancer.org National Cancer [employer] (NCI): cancer.gov Contact a health care provider [...] provider. Document Revised: 04/22/2022 Document Reviewed: 04/22/2022 [employer] Patient Education 2022 [employer]. Follow Up Care 08/26/2022 14:12:46 With:ARLENE CASILLAS, Katia Hall, URL Address: [facility] [address], [place] [address]- When: Unknown [facility] 04-10-2023 NoteEXAM: XR CHEST 2 V HISTORY: Pre-surgery evaluation COMPARISON: None. TECHNIQUE: PA and lateral views of the chest. FINDINGS: The cardiomediastinal silhouette is normal. No focal consolidation is identified. There is no pneumothorax. No pleural effusion is noted. The osseous structures are intact. IMPRESSION: No acute cardiopulmonary process. Electronically authenticated by: CORKY FORD Date: 2022-09-02 14:17[facility]03[facility]29[facility] Evaluation note* Encounter Date Diagnosis Assessment Notes [...] have his bladder tumor removal as scheduled. [facility] Other 03-08-2023 Evaluation + Plan note Diagnostic Tests Pending * UroVysion Fish and Urine Cyto ([facility]) 07/31/22 [facility] 03-08-2023 Hospital Discharge instructions Patient Education 07/31/2022 [...] including vitamins, herbs, eye drops, creams, and yzfu-jdf-edhimse medicines. Any problems you or family members [...] provider tells you to take them. Taking rhpq-gab-gttdfas medicines, vitamins, herbs, and supplements. Tests You [...] 03/08/2010 Document Revised: 12/11/2018 Document Reviewed: 12/11/2018 [employer] Patient Education 2020 [employer]. Follow Up Care 07/25/2022 10:56:51 With:ARLENE CASILLAS, Katia Hall, URL Address: [facility] [address] , [place] [address]- When: Unknown [facility] 03-02-2023 Evaluation note* Encounter Date Diagnosis [...] some bladder issues. I did call the ishBowl. The device is compatible up to 3 Maggi for MRI. I explained this to the family and the patient. Jul, Other specified postprocedural states (ICD-10 - Z98.890) Jul, Personal history of other diseases of the circulatory system (ICD-10 - Z86.79) [facility]01-25-2023 Evaluation note* Encounter Date Diagnosis Assessment [...] plan to do this percutaneously under MAC. [facility] Other 01-17-2023 Hospital Discharge instructions Patient Education [...] including vitamins, herbs, eye drops, creams, and zbcd-ykj-juohgav medicines. Any problems you or family members [...] provider tells you to take them. ?Taking dwba-hle-kdwmvsu medicines, vitamins, herbs, and supplements. Follow instructions [...] Follow these instructions at home: Medicines Take rsgv-abm-idmojnr and prescription medicines only as told by [...] 05/09/2001 Document Revised: 05/04/2019 Document Reviewed: 05/04/2019 Else[employer] Patient Education 2020 [employer] Follow Up Care 05/22/2022 13:37:28 With:[facility] Address: [address] [place] [address] Business (1) When: Unknown Comments:our nursing scheduler will be contacting you for follow-up [facility] Evaluation note* Encounter Date Diagnosis Assessment [...] to proceed all his questions were addressed. [facility] Other 01-10-2023 Evaluation note* Encounter Date Diagnosis [...] (ICD-10 - E78.5) Patient is on statin [facility] Other Evaluation + Plan note No data available for this section [facility] evaluation + Plan note Future Appointments Appointment Date:10/04/2022 10:00:00 AM Scheduled Provider: Location:[facility] Appointment Type:URO Nurse Visit [facility] Evaluation + Plan note Future Appointments Appointment Date:06/16/2023 10:00:00 AM Scheduled Provider: Location:[facility] Appointment Type:URO Nurse Visit Appointment Date:06/30/2023 01:30:00 PM Scheduled Provider:Katia SAMUELS MD Location:[facility] Appointment Type:URO Office Visit Diagnostic Tests Pending * UroVysion Fish and Urine Cyto ([facility]) [facility]10[facility]23 [facility] Future Appointments Appointment Date:06/30/2023 01:30:00 PM Scheduled Provider:[facility] Office Visit [facility] evaluation + Plan note Future Appointments Appointment Date:07/01/2023 08:30:00 AM Scheduled [facility] Type:[facility]O Nurse Visit [facility] evaluation + Plan note Future Appointments Appointment Date:09/09/2023 02:15:00 PM Scheduled Provider:Katia SAMUELS MD Location:[facility] Appointment Type:URO Procedure 15 min [facility] Evaluation + Plan note Future Appointments Appointment Date:10/07/2023 02:45:00 PM Scheduled Provider:Katia SAMUELS MD Location:[facility] Appointment Type:URO Procedure 15 min [facility] Evaluation note* Diagnosis Onset Date Resolution Status [...] acute Vitamin B 12 deficiency acut e [facility] Work Phone: Evaluinoaf noteNo assessment information available [facility] Work Phone: Evalugdflc noteNo InformationNort Imagga Other Hisowwl general Narrative - Reported* Type Description Date [...] INJ URY, 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, 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 [facility] Other history general Narrative - Reported* Type [...] INJ URY, 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, 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 [facility] Other Histavo general Narrative - Reported* Type Description Date Medical History ACUTE KIDNEY INJURY Medical History OBSTRUCTIVE UROPATHY Medical History PRE-OPERATIVE CARDIO VASCULAR EXAMINATION, BRADYARRHYTHMIA Medical History BILATERAL HYDRONEPHROSIS Medical History BLADDER MASS Medical History AAA (ABDOMINAL AORTIC ANEURYSM) Medical History TOBACCO ABUSE Medical History DEMENTIA Medical History OWN Medical History VITAMIN B 12 DEFICIENCY Medical History FOLIC ACID DEFICIENCY Surgical History KIDNEY STONE REMOVED Surgical History EVAR Surgical History TURBT, CYSTOSCOPY 09/12/2022 Surgical History CYSTOSCOPY 07/30/2022 Surgical History STENT OVER AORTIC ANEURYSM 07/15 22 Hospitalization History ACUTE KIDNEY INJ URY, 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, 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 Hospitalization History SEE ABOVE [facility] Other Hospital Discharge instructions No data available for this section [facility] Progress note No data available for this section [facility] Summary Purpose Family History No Family History [...] I71.4 1 YR F/U AAA; [place] [facility] Chief Complaint * ALEX ANDERSON is being [...] section and content) DATE CREATED AUTHOR 05/12/2021 [facility] dical Specialist DATE CREATED AUTHOR AUTHOR'S ORGANIZ ATION 09/23/2022 [facility] [place] [facility] DATE CREATED AUTHOR AUTHOR'S ORGANIZ ATION 01/23/2023 [facility] DATE CREATED AUTHOR AUTHOR'S ORGANIZ ATION 01/23/2023 [facility] DATE CREATED AUTHOR AUTHOR'S ORGANIZ ATION 08/05/2023 [facility] dical Specialists [facility] DATE CREATED AUTHOR AUTHOR'S ORGANIZ ATION 08/22/2023 [facility] DATE CREATED AUTHOR AUTHOR'S ORGANIZ ATION 09/27/2023 [facility] Patient Care team informatio n [...] Margarito Valentine MD Admit Provider, Attending Pr lois Active Team Status: Inactive Member Role Status [...] EVAR4 WK FOLLOW UP; CTA [facility] 08/16/22RENAL 6 month Follow upBPREFILL Goals (unrecognized [...] BE BASED ON THE PRIMARY CLINICAL RECORDS. [employer] provides no warranty or guarantee of the accuracy or completeness of information in this document.
--- NOTE | 2023-09-29 21:44 | ED.MALEGU1 ---
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 States last changed 09/10. Now presents stating the catheter is not draining. has suprapubic discomfort. No associated nausea, fever. Related Data Home Medications ?Medication ?Instructions ?Recorded ?Confirmed acetaminophen 500 mg capsule 500 mg PO Q6H PRN fever or pain 04/13/23 07/30/23 albuterol sulfate 90 mcg/actuation 1 inh inhalation Q6H PRN 04/13/23 07/30/23 aerosol inhaler bronchospasm aspirin 81 mg tablet,delayed 81 mg PO DAILY 04/13/23 09/26/23 release (Ecotrin Low Strength) folic acid 1 mg tablet 1 mg PO DAILY 04/13/23 07/30/23 metoprolol tartrate 50 mg tablet 50 mg PO Q12H 04/13/23 07/30/23 multivitamin (Daily Multi-Vitamin 1 tab PO DAILY 04/13/23 07/30/23 tablet) simvastatin 20 mg tablet 20 mg PO DAILY 04/13/23 07/30/23 amlodipine 5 mg tablet mg 07/30/23 acetaminophen 325 mg tablet (Pain 650 mg PO Q6H PRN fever or pain 09/26/23 09/26/23 Relief (acetaminophen)) atorvastatin 40 mg tablet 40 mg PO DAILY 09/26/23 09/26/23 baclofen 10 mg tablet 10 mg PO TID 09/26/23 09/26/23 carbamazepine 400 mg 400 mg PO BID 09/26/23 09/26/23 tablet,extended release,12 hr clopidogrel 75 mg tablet 75 mg PO DAILY 09/26/23 09/26/23 dextromethorphan HBr 20 mg/15 mL 20 mg PO .EVERY 4 HR PRN cough 09/26/23 09/26/23 oral solution (Creomulsion Adult Formula) diazepam 5 mg tablet 5 mg PO Q6H PRN anxiety 09/26/23 09/26/23 duloxetine 60 mg capsule,delayed 60 mg PO DAILY 09/26/23 09/26/23 release fluticasone furoate 50 1 inh inhalation Q24H 09/26/23 09/26/23 mcg/actuation blister powder for inhalation furosemide 40 mg tablet 40 mg PO QAM PRN edema 09/26/23 09/26/23 levalbuterol tartrate 45 1 inh inhalation Q6H PRN shortness 09/26/23 09/26/23 mcg/actuation aerosol inhaler of breath lisinopril 10 mg tablet 10 mg PO DAILY 09/26/23 09/26/23 loratadine 10 mg tablet (Claritin) 10 mg PO DAILY 09/26/23 09/26/23 montelukast 10 mg tablet 10 mg PO DAILY 09/26/23 09/26/23 omeprazole 40 mg capsule,delayed 40 mg PO DAILY 09/26/23 09/26/23 release oxycodone 5 mg tablet 5 mg PO Q8H PRN pain 09/26/23 09/26/23 polyethylene glycol 3350 17 17 g PO DAILY 09/26/23 09/26/23 gram/dose oral powder (Miralax) pregabalin 100 mg capsule (Lyrica) 100 mg PO BID 09/26/23 09/26/23 spironolactone 25 mg tablet mg 09/26/23 terazosin 2 mg capsule 2 mg PO DAILY 09/26/23 09/26/23 verapamil 240 mg 24 hr 240 mg PO DAILY 09/26/23 09/26/23 capsule,extended release Allergies Allergy/AdvReac Type Severity Reaction Status Date / Time No Known Drug Allergies Allergy Verified 09/26/23 20:49 Review of Systems ROS Status of ROS 10 or more systems reviewed and unremarkable except as noted in history and below [facility] Social History Smoking status: Current every day smoker Exam Constitutional Vital Signs, click to edit/add: Last Vital Signs Temp 98 F 09/29/23 21:29 Pulse 90 09/29/23 21:29 Resp 20 09/29/23 21:29 BP 117/83 09/29/23 21:29 Pulse Ox 97 09/29/23 21:54 O2 Del Method Room Air 09/29/23 21:54 Common normals: no apparent distress, average body habitus, oriented x3, healthy appearing, alert and well nourished [facility] Common normals: normocephalic Respiratory Common normals: normal respiratory effort, no retractions, no use of accessory muscles and clear to auscultation bilaterally Cardio Common normals: regular rate, regular rhythm, S1 normal heart sound and S2 normal heart sound GI Common normals: Normal to inspection, nondistended, normoactive bowel sounds present and non-tender Extremity Other: chronic swelling bilat lower ext R>L Neuro Common normals: oriented x3, CN's II-XII intact bilaterally and moves all extremities Psych Appearance: grossly normal Course Vital Signs Vital signs: Vital Signs Temperature 98 F 09/29/23 21:29 Pulse Rate 90 09/29/23 21:29 Respiratory Rate 20 09/29/23 21:29 Blood Pressure 117/83 09/29/23 21:29 Pulse Oximetry 97 09/29/23 21:29 Oxygen Delivery Method Room Air 09/29/23 21:29 Temperature 98 F 09/29/23 21:29 Pulse Rate 90 09/29/23 21:29 Respiratory Rate 20 09/29/23 21:29 Blood Pressure 117/83 09/29/23 21:29 Pulse Oximetry 97 09/29/23 21:54 Oxygen Delivery Method Room Air 09/29/23 21:54 MDM - Male Genitourinary MDM Narrative Medical decision making narrative: patient presents because his chronic indwelling zapien is not draining. Nursing attempted to irrigate the catheter without success. Catheter was changed by nursing and patient discharged to follow up with Urology as a scheduled appointment this week Discharge Plan Discharge Stand Alone Forms: Portal Instructions Chief Complaint: Urogenital-Male Clinical Impression: Zapien catheter problem, Acute on chronic urinary retention Patient Disposition: Home, Self-Care Prescriptions / Home Meds: No Action albuterol sulfate 90 mcg/actuation HFA aerosol inhaler 1 inh INHALATION Q6H PRN (Reason: bronchospasm) folic acid 1 mg tablet 1 mg PO DAILY metoprolol tartrate 50 mg tablet 50 mg PO Q12H simvastatin 20 mg tablet 20 mg PO DAILY Hold Instructions: while taking ATBs aspirin [Ecotrin Low Strength] 81 mg tablet,delayed release (DR/EC) 81 mg PO DAILY multivitamin [Daily Multi-Vitamin] Tablet 1 tab PO DAILY acetaminophen 500 mg capsule 500 mg PO Q6H PRN (Reason: fever or pain) amlodipine 5 mg tablet atorvastatin 40 mg tablet 40 mg PO DAILY baclofen 10 mg tablet 10 mg PO TID carbamazepine 400 mg tablet extended release 12 hr 400 mg PO BID loratadine [Claritin] 10 mg tablet 10 mg PO DAILY clopidogrel 75 mg tablet 75 mg PO DAILY duloxetine 60 mg capsule,delayed release(DR/EC) 60 mg PO DAILY fluticasone furoate 50 mcg/actuation blister with device 1 inh inhalation Q24H lisinopril 10 mg tablet 10 mg PO DAILY montelukast 10 mg tablet 10 mg PO DAILY omeprazole 40 mg capsule,delayed release(DR/EC) 40 mg PO DAILY polyethylene glycol 3350 [Miralax] 17 gram/dose powder 17 g PO DAILY pregabalin [Lyrica] 100 mg capsule 100 mg PO BID terazosin 2 mg capsule 2 mg PO DAILY verapamil 240 mg capsule,ext rel. pellets 24 hr 240 mg PO DAILY acetaminophen [Pain Relief (acetaminophen)] 325 mg tablet 650 mg PO Q6H PRN (Reason: fever or pain) Creomulsion Adult Formula 20 mg/15 mL solution 20 mg PO .EVERY 4 HR PRN (Reason: cough) diazepam 5 mg tablet 5 mg PO Q6H PRN (Reason: anxiety) furosemide 40 mg tablet 40 mg PO QAM PRN (Reason: edema) levalbuterol tartrate 45 mcg/actuation HFA aerosol inhaler 1 inh inhalation Q6H PRN (Reason: shortness of breath) oxycodone 5 mg tablet 5 mg PO Q8H PRN (Reason: pain) spironolactone 25 mg tablet Print Language: Malay Instructions: Urinary Retention in Men (ED) Additional Instructions: follow up with your Urologist Referrals: NICHOLAS EMERSON [Primary Care Provider] - 1 week
[2023-09-29 21:54] VITALS: O2SAT 97
[2023-09-29] MEDS: SODIUM CHLORIDE 0.9% IRRIG SOLUTION 1,000 ML BOTTLE 1000 ML IRR (22:15)
[2023-09-29] MEDS: LIDOCAINE 2% JELLY 10 ML UR (22:15)
[2023-09-29 23:30] VITALS: PULSE 87; O2SAT 99
== END 2023-09-29 23:30 | disposition home or self-care (01) ==
PROVIDERS: Emergency Provider Internal Medicine; PCP Family Medicine
DX: T83.098A Other mechanical complication of other urinary catheter, initial encounter (principal); R33.9 Retention of urine, unspecified; Z79.82 Long term (current) use of aspirin; Z79.899 Other long term (current) drug therapy; F17.200 Nicotine dependence, unspecified, uncomplicated
CPT/HCPCS: 51702; 99284

== ENCOUNTER 2023-09-30 18:39 | Emergency (ER) | payer MEDICARE, OTHER, SELFPAY ==
[2023-09-30 18:56] VITALS: BP 142/88; PULSE 86; TEMP 36.9; O2SAT 95; BMI 29.5
--- NOTE | 2023-09-30 20:46 | ED_ITS ---
HPI HPI - General Adult General Chief complaint: Urogenital-Male Stated complaint: [employer] check Time Seen by Provider: 09/30/23 19:28 Source: patient Mode of arrival: walk-in Limitations: no limitations History of Present Illness HPI narrative: Patient is a 77-year-old male who presents to the emergency department again for clogged Villarreal catheter. He has been seen multiple times in this emergency department this week for the same problem. He states he has had a chronic indwelling Villarreal catheter for the last 16 months. He has had issues with a clogging over the last several days. A Villarreal catheter was replaced last night, patient states he had a full bag of urine in his Villarreal catheter bag this morning, but has had issues with drainage throughout the day. He has not had any fevers, vomiting. He states that he and his noted clots in the bag and they attempted to irrigate at home themselves without success. Related Data Home Medications ?Medication ?Instructions ?Recorded ?Confirmed acetaminophen 500 mg capsule 500 mg PO Q6H PRN fever or pain 04/13/23 07/30/23 albuterol sulfate 90 mcg/actuation 1 inh inhalation Q6H PRN 04/13/23 07/30/23 aerosol inhaler bronchospasm aspirin 81 mg tablet,delayed 81 mg PO DAILY 04/13/23 09/26/23 release (Ecotrin Low Strength) folic acid 1 mg tablet 1 mg PO DAILY 04/13/23 07/30/23 metoprolol tartrate 50 mg tablet 50 mg PO Q12H 04/13/23 07/30/23 multivitamin (Daily Multi-Vitamin 1 tab PO DAILY 04/13/23 07/30/23 tablet) simvastatin 20 mg tablet 20 mg PO DAILY 04/13/23 07/30/23 amlodipine 5 mg tablet mg 07/30/23 acetaminophen 325 mg tablet (Pain 650 mg PO Q6H PRN fever or pain 09/26/23 09/26/23 Relief (acetaminophen)) atorvastatin 40 mg tablet 40 mg PO DAILY 09/26/23 09/26/23 baclofen 10 mg tablet 10 mg PO TID 09/26/23 09/26/23 carbamazepine 400 mg 400 mg PO BID 09/26/23 09/26/23 tablet,extended release,12 hr clopidogrel 75 mg tablet 75 mg PO DAILY 09/26/23 09/26/23 dextromethorphan HBr 20 mg/15 mL 20 mg PO .EVERY 4 HR PRN cough 09/26/23 09/26/23 oral solution (Creomulsion Adult Formula) diazepam 5 mg tablet 5 mg PO Q6H PRN anxiety 09/26/23 09/26/23 duloxetine 60 mg capsule,delayed 60 mg PO DAILY 09/26/23 09/26/23 release fluticasone furoate 50 1 inh inhalation Q24H 09/26/23 09/26/23 mcg/actuation blister powder for inhalation furosemide 40 mg tablet 40 mg PO QAM PRN edema 09/26/23 09/26/23 levalbuterol tartrate 45 1 inh inhalation Q6H PRN shortness 09/26/23 09/26/23 mcg/actuation aerosol inhaler of breath lisinopril 10 mg tablet 10 mg PO DAILY 09/26/23 09/26/23 loratadine 10 mg tablet (Claritin) 10 mg PO DAILY 09/26/23 09/26/23 montelukast 10 mg tablet 10 mg PO DAILY 09/26/23 09/26/23 omeprazole 40 mg capsule,delayed 40 mg PO DAILY 09/26/23 09/26/23 release oxycodone 5 mg tablet 5 mg PO Q8H PRN pain 09/26/23 09/26/23 polyethylene glycol 3350 17 17 g PO DAILY 09/26/23 09/26/23 gram/dose oral powder (Miralax) pregabalin 100 mg capsule (Lyrica) 100 mg PO BID 09/26/23 09/26/23 spironolactone 25 mg tablet mg 09/26/23 terazosin 2 mg capsule 2 mg PO DAILY 09/26/23 09/26/23 verapamil 240 mg 24 hr 240 mg PO DAILY 09/26/23 09/26/23 capsule,extended release Allergies Allergy/AdvReac Type Severity Reaction Status Date / Time No Known Drug Allergies Allergy Verified 09/26/23 20:49 Opioid HPI Opioid Management Most Recent Opioid Data: Last Pain Scale 8 07/30/23 22:37 Review of Systems ROS Constitutional Denies: fever or chills Ears, nose, mouth, and throat Denies: throat pain or nasal congestion Gastrointestinal Denies: nausea or vomiting Genitourinary Reports: difficulty urinating Musculoskeletal Denies: back pain Integumentary/Breast Denies: rash Hematologic/Lymphatic Denies: easy bruising or easy bleeding PFSH PFS Social History Smoking status: Current every day smoker Exam Narrative Exam Narrative: Gen.: Awake, alert, in no distress Head: Normocephalic, atraumatic ENT: Moist mucous membranes Respiratory: No respiratory distress Gastrointestinal: Abdomen is soft, nondistended and nontender to palpation Extremities: Moves extremities equally Psych: Normal mood and affect Neuro: No focal neuro deficit Skin: Warm, dry, intact Constitutional Vital Signs, click to edit/add: Last Vital Signs Temp 98.4 F 09/30/23 18:56 Pulse 86 09/30/23 18:56 Resp 15 09/30/23 18:56 BP 142/88 H 09/30/23 18:56 Pulse Ox 95 09/30/23 18:56 O2 Del Method Room Air 09/30/23 18:56 Course Vital Signs Vital signs: Vital Signs Temperature 98.4 F 09/30/23 18:56 Pulse Rate 86 09/30/23 18:56 Respiratory Rate 15 09/30/23 18:56 Blood Pressure 142/88 H 09/30/23 18:56 Pulse Oximetry 95 09/30/23 18:56 Oxygen Delivery Method Room Air 09/30/23 18:56 Temperature 98.4 F 09/30/23 18:56 Pulse Rate 86 09/30/23 18:56 Respiratory Rate 15 09/30/23 18:56 Blood Pressure 142/88 H 09/30/23 18:56 Pulse Oximetry 95 09/30/23 18:56 Oxygen Delivery Method Room Air 09/30/23 18:56 Medical Decision Making [facility] Narrative Medical decision making narrative: Villarreal catheter was replaced with a three-way catheter, this is draining appropriately. Bladder scan showed 800 mL in the bladder. Over 1 L was drained in the ER without difficulty. Urine specimen sent as the patient did not have his urine checked yesterday. Patient's son is very anxious for discharge due to the weather, I will follow-up on the patient's urine specimen and if positive I will send a prescription to the pharmacy for him to start tomorrow. Patient is hemodynamically stable in no distress at discharge. Follow-up with urology on Friday as scheduled Medical Records Medical records reviewed: Yes I reviewed the patient's medical records Lab Data Lab results reviewed: Yes I reviewed the patient's lab results Discharge Plan Discharge Stand Alone Forms: Portal Instructions Chief Complaint: Urogenital-Male Clinical Impression: Villarreal catheter problem Patient Disposition: Home, Self-Care Time of Disposition Decision: 20:57 Condition: Good Prescriptions / Home Meds: No Action albuterol sulfate 90 mcg/actuation HFA aerosol inhaler 1 inh INHALATION Q6H PRN (Reason: bronchospasm) folic acid 1 mg tablet 1 mg PO DAILY metoprolol tartrate 50 mg tablet 50 mg PO Q12H simvastatin 20 mg tablet 20 mg PO DAILY Hold Instructions: while taking ATBs aspirin [Ecotrin Low Strength] 81 mg tablet,delayed release (DR/EC) 81 mg PO DAILY multivitamin [Daily Multi-Vitamin] Tablet 1 tab PO DAILY acetaminophen 500 mg capsule 500 mg PO Q6H PRN (Reason: fever or pain) amlodipine 5 mg tablet atorvastatin 40 mg tablet 40 mg PO DAILY baclofen 10 mg tablet 10 mg PO TID carbamazepine 400 mg tablet extended release 12 hr 400 mg PO BID loratadine [Claritin] 10 mg tablet 10 mg PO DAILY clopidogrel 75 mg tablet 75 mg PO DAILY duloxetine 60 mg capsule,delayed release(DR/EC) 60 mg PO DAILY fluticasone furoate 50 mcg/actuation blister with device 1 inh inhalation Q24H lisinopril 10 mg tablet 10 mg PO DAILY montelukast 10 mg tablet 10 mg PO DAILY omeprazole 40 mg capsule,delayed release(DR/EC) 40 mg PO DAILY polyethylene glycol 3350 [Miralax] 17 gram/dose powder 17 g PO DAILY pregabalin [Lyrica] 100 mg capsule 100 mg PO BID terazosin 2 mg capsule 2 mg PO DAILY verapamil 240 mg capsule,ext rel. pellets 24 hr 240 mg PO DAILY acetaminophen [Pain Relief (acetaminophen)] 325 mg tablet 650 mg PO Q6H PRN (Reason: fever or pain) Creomulsion Adult Formula 20 mg/15 mL solution 20 mg PO .EVERY 4 HR PRN (Reason: cough) diazepam 5 mg tablet 5 mg PO Q6H PRN (Reason: anxiety) furosemide 40 mg tablet 40 mg PO QAM PRN (Reason: edema) levalbuterol tartrate 45 mcg/actuation HFA aerosol inhaler 1 inh inhalation Q6H PRN (Reason: shortness of breath) oxycodone 5 mg tablet 5 mg PO Q8H PRN (Reason: pain) spironolactone 25 mg tablet Print Language: Nicarag[place] Instructions: Villarreal Catheter Placement and Care (ED) Additional Instructions: Follow up with Dr. Samuels on friday as scheduled Referrals: NICHOLAS EMERSON [Primary Care Provider] - 1 week
[2023-09-30] MEDS: LIDOCAINE 2% JELLY 10 ML UR (20:52)
[2023-09-30 21:02] LABS: Bilirubin Urine NEGATIVE (NEGATIVE); Blood Urine LARGE (NEGATIVE); Clarity Urine CLEAR (CLEAR); Color Urine LT. YELLOW (YELLOW); Glucose Urine UA NEGATIVE (NEGATIVE); Ketones Urine NEGATIVE (NEGATIVE); Leukocyte Esterase Urine LARGE (NEGATIVE); Nitrite Urine POSITIVE (NEGATIVE); Protein Urine 30 mg/dL (NEG/TRACE); Urobilinogen Urine 0.2 EU/dL (0.2-1.0)
[2023-09-30 21:03] LABS: Urine Microscopic Indicated YES
[2023-09-30 21:05] VITALS: BP 123/82; PULSE 84; O2SAT 94
[2023-09-30 21:09] LABS: Bacteria Urine LARGE #/HPF (NONE SEEN); Crystals Seen? None Seen #/HPF (None Seen); Mucus Urine TRACE (NONE SEEN); RBC Urine 20-50 #/HPF (0-2); Squamous Epithelial Cell Urine NONE SEEN #/LPF (NONE/RARE); WBC Urine >100 #/HPF (NONE SEEN)
[2023-09-30 21:10] LABS: Amorphous Sediment Urine FEW; Cast Seen? NONE SEEN #/LPF (NONE SEEN); Urine Culture Indicated YES
--- NOTE | 2023-09-30 21:59 | PC.NURSE ---
Villarreal in place on admission. Was placed last PM.No drainage noted in bag
== END 2023-09-30 21:05 | disposition home or self-care (01) ==
PROVIDERS: Physician Assistant; Emergency Provider Emergency Medicine; PCP Family Medicine
DX: T83.091A Other mechanical complication of indwelling urethral catheter, initial encounter (principal); Z79.82 Long term (current) use of aspirin; Z79.899 Other long term (current) drug therapy; F17.210 Nicotine dependence, cigarettes, uncomplicated
CPT/HCPCS: 51702; 81001; 87086; 87150; 87186; 99284

== ENCOUNTER 2023-10-16 08:39 | Outpatient (OUT) | payer MEDICARE, OTHER, SELFPAY ==
--- OUTSIDE RECORDS SUMMARY | 2023-10-16 08:59 | XMS_ITS | CCD ---
Author Organization [facility] Care Team Providers Care Venetian Blind Assembler Name Role Phone Stanley Emerson Unavailable Unavailable Unavailable STANLEY EMERSON Primary Care Physician Unavail able MD Stanley Emerson Primary Care Provider MD Taz Barnes Admit Provider MD Margarito Valentine Other Provider [phone] MD Janice Gonzalez Other Provider DO Bernabe Cr Attending Provider [phone] MD Margarito Valentine Attending Provider MD Margarito Valentine Admit Provider Celia Ramos Unavailable Margarito Valentine Unavailable MOMO Schwab Attending Provider MD Stanley Emerson Primary Care Provider MD Taz Barnes Admit Provider MD Margarito Valentine Other Provider [phone] MD Janice Gonzalez Other Provider DO Bernabe Cr Attending Provider [phone] MD Margarito Valentine Attending Provider MD Margarito [...] Unavailable SAMUELS ., DR MONTALVO Consulting Unavailable JAZZY CATES Consulting Unavailable SURY II, ARCADIO Consulting Unavailable [...] Stokes, Dr. Teo Poon Referring Araceli vailable Idania, Dr. Stanley Mercado Primary Care Unava ilable Hemeyer, Dr. Stanley Mercado Primary Care Unava ilable Stokes, Dr. Teo Poon Referring Araceli vailable Stokes, Dr. Teo Poon Attending Araceli vailable Stokes, Dr. Teo Poon Attending Araceli vailable Hemeyer, Dr. Stanley Mercado Primary Care Elliot Emerson, Dr. Stanley Mercado Primary Care Araceliva lucille Stokes, Dr. Teo Poon Attending Araceli vailadiana Stokes, Dr. Teo Poon Attending Araceli Emerson, Dr. Stanley eMrcado Primary Care MD Stanley Little Primary Care Provider MD Celia Ramos Attending Provider MD Teo Stokes Referring Provider MD Stanley Emerson Primary Care Provider MD Margarito Valentine Attending Provider Margarito Valentine Admitting UnavailMargarito Lara Attending Unavailabl e Idania, Stanley Rich Primary Care Unavailable Teo Stokes Referring Unavailable Idania, Stanley Rich Primary Care Unavailable Jonh Ramosiz Admitting Unavailable Celia Ramos Attending Unavailable HEMECHERY, STANLEY Rich Attending Unavailable HEMEYER, STANLEY Rich Attending Unavailable HEMEYER, STANLEY Rich Attending Unavailable SAMUELS, KATIA Hall Referring Unavailable HEMEYER, STANLEY Rich Attending Unavailable SAMUELS, Katia R Attending Unavailable SAMUELS, Katia R Referring Unavailable SAMUELS, Katia R Admitting Unavailable SAMUELS, Katia R Admitting Unavailable SAMUELS, [...] Referring Unavailable SAMUELS, Katia R Admitting Unavailable Allergies Allergy Classification Reported Allergen(s) Allergy Type Date of Onset Reaction(s) Facility (1 source) No Known Medication Allergies; Translations: [No Known Medication Allergies] Propensity to adverse reactions (disorder) [facility] Repository Medications Current Medications Medication Drug [...] take 1 tablet by mouth every hour [place] 325 mg-7.5 mg oral tablet 1 tab(s), Oral, Once, 1 tab(s), Refill(s) 0, Take 1 hour prior to procedure, [facility]/pharmacy #[id number], 187, cm, 03/11/23 13:44:00 EDT, Height/Length Dosing, 93, kg, 03/11/23 13:44:00 EDT, Weight Dosing Start Date: 05/06/23 Status: Ordered Albuterol (Eqv-ProAir HFA) 90 mcg/inh inhalation aerosol (17 sources) Start: 06-10-2022 Albuterol (Eqv-ProAir HFA) 90 mcg/inh inhalation aerosol Refill(s) 0 Start Date: 06/10/22 Status: Ordered amLODIPine 5 mg oral tablet (11 sources) Dihydropyridine Calcium Channel Alfredito Start: 06-10-2023 [...] a day for 90 days Mar, Active cephalexin 500 mg oral capsule (3 sources) Cephalosporin Antibacterial Start: 10-03-2023 take 1 mg by mouth every twelve hours Keflex 500 mg Cap mg cap(s), Oral, q12hr, Refills(s) 0 Start Date: 10/03/23 Status: Ordered ferrous sulfate 325 mg oral tablet (4 sources) take 1 tablet by mouth every twenty-four hours Ferrous Sulfate 325 (65 Fe) MG 1 tablet Orally once a day Active folic acid 1 mg oral tablet (18 sources) Start: 05-22-2022 folic acid 1 m g Tab Refills(s) 0 Start Date: 06/10/22 Status: [...] daily May 16, 2022 1:00am Multivitamin preparation (20 sources) Start: 07-31-2022 multivitamin D aily, Refill(s) 0 Start Date: 07/31/22 Status: Ordered Multivitamin Act raji 24 hr oxybutynin chloride 10 mg extended release oral tablet (1 source) Cholinergic Muscarinic Antagonist Start: 06-11-2023 take 1 tablet by mouth once daily oxybutynin 10 mg ER Tab 10 mg = 1 tab(s), Oral, Daily, # 14 tab(s), Refills(s) 0, Pharmacy: [facility]/pharmacy #[id number], 187, cm, 06/10/23 13:43:00 EST, [...] Refills(s) 0 Start Date: 06/10/22 Status: Ordered spironolactone 25 mg oral tablet (3 sources) Aldosterone Antagonist Start: 10-03-2023 take 1 mg by mouth once daily spironolactone 25 mg Tab mg tab(s), Oral, Daily, Refills(s) 0 Start Date: 10/03/23 Status: Ordered vitamin b12 1 mg oral capsule (17 [...] Drug Class(es) Dates Sig (Normalized) Sig (Original) [id number] 200 actuat albuterol 0.09 mg/actuat metered dose [...] procedure, # 6 tab(s), Refills(s) 0, [id number], cm, 09/18/22 14:39:00 EDT, Height/Length Dosing, 93, kg, 09/18/22 14:39:00 EDT, Weight Dosing Start Date: 12/03/22 Status: Ordered Start: 07-25-2022 take 1 tablet by charlene th once daily Cipro 250 mg Tab 250 mg = 1 tab(s), Oral, Daily, Take 1 tablet the day before the procedure and 1 tablet after the procedure, # 2 tab(s), Refills(s) 0, [id number] 187, cm, 06/11/22 9:11:00 EST, Height/Length Dosing, 93.5, kg, 06/11/22 9:11:00 EST, W... Start Date: 07/25/22 Status: Ordered Multi Vitamin Oral Tablet (1 source) take 1 tablet by mouth once daily Multi Vitamin Oral Tablet TAKE 1 TABLET DAILY. Quantity: 0 Refills: 0 Ordered: 22-Jan-2023 DO Active water 1000 mg/ml irrigation solution (3 sources) Start: 10-03-2023 sterile water irrigation solution See Instructions, 500 mL, Refill(s) 1, Irrigate zapien catheter as needed with 60 cc sterile water, [facility]/pharmacy #[id number], 187, cm, 10/03/23 14:11:00 EDT, Height/Length Dosing, 93, kg, 10/03/23 14:11:00 EDT, Weight Dosing Start Date: 10/03/23 Status: Ordered Problems Active Problems Problem Classification Problem Date Documented Da te Episodic/Chronic Aortic; peripheral; and visceral artery aneurysms (20 sources) Abdominal aortic aneurysm; Translations: [Abdominal aneurysm without mention of rupture] Onset: 05-16-2022 Chronic Calculus of urinary tract (20 sources) Urinary bladder stone; Translations: [Calculus in bladder] Onset: 06-11-2022 Episodic Cancer of bladder (18 sources) Malignant tumor of urinary bladder; Translations: [Malignant neoplasm of bladder, unspecified] Onset: 09-18-2022 Chronic Cancer of bladder (4 sources) History of malignant neoplasm of bladder; Translations: [Personal history of malignant neoplasm of bladder] Onset: 12-10-2022 Episodic Cancer; other and unspecified primary (13 sources) H/O: malignant neoplasm 12-10-2022 Episodic Chronic kidney disease (11 sources) Chronic kidney disease stage 3B ; Translations: [Chronic kidney disease, stage 3b] Onset: 09-04-2022 09-18-2023 Chronic Chronic kidney disease (4 sources) Chronic kidney disease; Translations: [CHRONIC KIDNEY DISEASE STAGE 3B] Onset: 09-10-2022 Chronic obstructive pulmonary disease and bronchiectasis (16 sources) Pulmonary emphysema; Translations: [Simple chronic bronchitis] Onset: 09-23-2022 09-11-2022 Chronic Complication of device; implant or graft (1 source) Other mechanical complication of indwelling urethral catheter, initial encounter; Translations: [OT MECH CMP INDWELL URETH CATH INT] Onset: [...] unspecified] Onset: 06-10-2022 Episodic Hyperplasia of prostate (18 sources) Benign prostatic hypertrophy with outflow obstruction; [...] Other sequelae following unspecified cerebrovascular disease; Translations: [OT SEQUELAE UNS CEREBROVASCULAR DZ] Onset: 09-23-2022 Chronic Neoplasms of unspecified nature or uncertain behavior (4 sources) Neoplasm of unspecified behavior of bladder; Translations: [NEOPLASM UNS BEHAVIOR OF BLADDER] Onset: 09-08-2022 Episodic Nutritional deficiencies (20 sources) Cobalamin deficiency; Translations: [Deficiency of other specified B group vitamins] 05-22-2022 Episodic Other aftercare (1 source) 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; Translations: [OTH HALF-WAY CURRENT DRUG THERAPY] Onset: 09-23-2022 Episodic Other aftercare (1 source) group home (current) use of anticoagulants; Translations: [BODY SHOP FLOORPERSON CURRNT USE ANTICOAGULANTS] Onset: 09-08-2022 Episodic Other and ill-defined cerebrovascular disease (17 sources) Cerebral ischemia Onset: 05-16-2022 06-10-2022 Chronic [...] Chronic Other diseases of bladder and urethra (16 sources) Lesion of bladder 07-31-2022 Chronic Other diseases of bladder and urethra (1 source) Diverticulum of bladder; Translations: [DIVERTICULUM OF BLADDER] Onset: 09-23-2022 Chronic Other diseases of bladder and urethra (1 source) Bladder disorder, unspecified; Translations: [BLADDER DISORDER UNSPECIFIED] Onset: 09-08-2022 Chronic Other diseases of kidney and ureters (19 sources) Hydroureter; Translations: [Hydroureter] Onset: 06-11-2022 Episodic Other diseases of kidney and ureters (2 sources) Disorder of kidney and/or ureter; Translations: [Disorder of kidney and ureter, unspecified] Onset: 06-11-2022 Episodic Other diseases of kidney and ureters (17 sources) Hydronephrosis 06-10-2022 Episodic Other diseases of kidney and ureters (17 sources) Kidney lesion 06-11-2022 Episodic Other diseases [...] Diarrhea; Translations: [Diarrhea, unspecified] 05-16-2022 Episodic Other injuries and conditions due to external causes (4 sources) Foreign body in bladder; Translations: [Foreign body in bladder, initial encounter] Onset: 10-03-2023 Episodic Other nervous system disorders (7 sources) [...] 05-23-2022 Episodic Other aftercare (1 source) intermediate manager (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 200 cells were analyzed in this evaluation. No [...] Abnormal cells aneploid events: Total cells analyzed: 200 Hematuria: Gross Description Site ID:A color no colour fixative Alcohol Received 90 mls of clear no colour fluid with the patient's name and, Urine on the vial. Electronically signed by : on: 10/10/2023 11:17:43 Performed By: #### 1 [id number] #### [facility] [address] [place] [address] Consent for Procedure/Surger yon 10-08-2023 Consent for Procedure/Surgery [id number]#1.00TIFF [facility] Ambulatory Visit Summaryon 0 10-07-2023 Ambulatory Visit Summary ALEX ANDERSON :1945 Visit Date:10/07/2023 Ambulatory Visit Instructions Your Care Team Attending Physician - ARLENE CASILLAS, Katia Hall Primary Care Physician - IDANIA CASILLAS, STANLEY Rich This Is Your Medications List albuterol (Albuterol (Eqv-ProAir HFA) 90 mcg/inh inhalation aerosol) amlodipine cephalexin (Keflex 500 mg Cap) metoprolol (Metoprolol tartrate 50 mg Tab) multivitamin simvastatin (simvastatin 20 mg Tab) spironolactone (spironolactone 25 mg Tab) sterile water (sterile water irrigation solution) Procedures Performed Flexible cystoscopy (10/03/2023), Cystoscope (03/11/2023), TURBT - Transurethral resection of bladder tumor (09/12/2022), Cystoscopy (07/31/2022). What to do next Scheduled Follow-Up Appointments Friday 10:30 AM EDT Where: [facility] Ambulatory Visit Summaryon 0 10-03-2023 Ambulatory Visit Summary ALEX ANDERSON :1945 Visit Date:10/03/2023 Ambulatory Visit Instructions Your Diagnosis Foreign body in bladder History of bladder cancer Urinary retention BPH with urinary obstruction Your Care Team Attending Physician - ARLENE CASILLAS, Katia Hall Primary Care Physician - IDANIA CASILLAS, STANLEY Rich This Is Your Medications List Contact prescribing physician if questions or concerns albuterol (Albuterol (Eqv-ProAir HFA) 90 mcg/inh inhalation aerosol) amlodipine cephalexin (Keflex 500 mg Cap) metoprolol (Metoprolol tartrate 50 mg Tab) multivitamin simvastatin (simvastatin 20 mg Tab) spironolactone (spironolactone 25 mg Tab) Procedures Performed Flexible cystoscopy (10/03/2023), Cystoscope (03/11/2023), TURBT - Transurethral resection of bladder tumor (09/12/2022), Cystoscopy (07/31/2022). Discharge Vitals Height 187 cm Height 74 in Weight 93 kg Weight 204.6 lb BMI 26.59 What to do next You Need to Schedule the Following Appointments Follow Up with ARLENE CASILLAS, ADRIA Sterling When: Where: [facility] [address] , [place] [address]- [phone] Medications What How Much When Instructions Unchanged albuterol (Albuterol (Eqv-ProAir HFA) 90 mcg/ inh inhalation aerosol) Contact prescribing physician if questions or concerns Unchanged amlodipine 5 Milligram By Mouth 2 times a day Contact prescribing physician if questions or concerns Unchanged cephalexin (Keflex 500 mg Cap) By Mouth Every 12 hours Contact prescribing physician if questions or concerns Unchanged metoprolol (Metoprolol tartrate 50 mg Tab) Contact prescribing physician if questions or concerns Unchanged multivitamin Every day Contact prescribing physician if questions or concerns Unchanged simvastatin (simvastatin 20 mg Tab) Contact prescribing physician if questions or concerns Unchanged spironolactone (spironolactone 25 mg Tab) By Mouth Every day Contact prescribing physician if questions or concerns Medications and Immunizations Administered Given lidocaine Top 2% Gel w/Appl 6 mL, 6 mL, Topical. For: History of bladder cancer Allergies No Known Medication Allergies Problems Ongoing - Any problem that you are currently receiving treatment for. Abdominal aortic aneurysm Acute kidney failure Bladder cancer Bladder mass Bladder stones BPH with urinary obstruction COPD with emphysema Dementia Foreign body in bladder History of bladder cancer Hydronephrosis Hydroureter Hyperkalemia Hyperlipidemia Hypertension Lesion of bladder Renal lesion Transient cerebral ischemic attack Urinary retention Patient Survey You may receive a survey via text or e-mail asking about your office visit. Please share your experience with us by completing your survey. We appreciate your feedback and thank you for choosing us for your care. Education Materials Acute Urinary Retention, Male Acute urinary retention [...] an indwelling urinary catheter. After it is inserted (more content not included)... Normal [facility] Home Health Recordson 2023 [facility] [id number]#1.00TIFF Normal [facility] Patient Educationon 10-03-19 Patient Education Urology Acute Urinary Retention, Male [...] these instructions at home: Medicines ? Take ggfl-wsb-hugadso and prescription medicines only as told by [...] provider. Document Revised: 01/31/2021 Document Reviewed: 01/31/2021 [employer] Patient Education ? 2022 [employer] Normal [facility] Fish and Urine Cyt o ([facility])on 10-03-2023 [facility] Method of Extraction Bladder Wash Normal [facility] Comment on above: Performed By: #### 1 [id number] #### [facility] [address] [place] [address] [facility] Number of Jars 1 Invalid Interpretation Code [facility] Comment on above: Performed By: #### 1 [id number] #### [facility] [address] [place] [address] [facility] Specimen Urine Normal [facility] Comment on above: Performed By: #### 1 [id number] #### [facility] [address] [place] [address] [facility] Type of Service Technical Only Normal [facility] Comment on above: Performed By: #### 1 [id number] #### [facility] [address] [place] [address] Urology Office/Clinic Noteon 10-03-2023 Urology Office/Clinic Note Chief Complaint Patient in office for Cysto/zapien change HPI Staff Cystoscopy for 3 month bladder check with FISH/Cytology. Pt has an indwelling catheter. Did not wish to learn CIC after he failed last voiding trial. Has home health care for monthly catheter changes. History of Present Illness Tests reviewed: reviewed ER records. I have reviewed the previous health record information and history for this patient from Dr. Samuels. I have reviewed and verified the staff HPI to be accurate for this encounter. There have been no associated fever, chills, flank pain, or blood in the urine. Denies any urinary infections since last encounter. Review of Systems ROS - Provider Constitutional: denies weight loss, denies hot flashes. Eyes: denies eye problems. Gastrointestinal: denies nausea, denies vomiting. Cardiovascular: denies chest pain or angina. Integumentary: no dryness Musculoskeletal: denies musculoskeletal symptoms. ENMT: denies otolaryngeal symptoms. Respiratory: no shortness of breath. Heme/Lymph: denies easy bleeding tendency, denies easy bruising tendency. Psychiatric: no confusion, no anxiety. Genitourinary: See HPI. Procedure Operative Information Anesthesia Type: Local Procedure: [...] Urethra is: Normal The Prostatic Urethra is: obstructing, long lateral lobes. The Bladder: neg for b.t., diffuse open tics, piece of zapien in bladder. Trabeculated: Severe (3) The Ureteral orifices: Show efflux of clear urine. Specimens Removed: Bladder wash sent for FISH and Cytology test Removal: Cystoscope is removed. The patient tolerated it well. Postoperative Information Patient is discharged home with antibiotic coverage. Follow up arranged. Assessment/Plan 1. Foreign body in bladder (T19.1XXA: Foreign body in bladder, initial encounter) Piece of Zapien removed from bladder. 2. History of bladder cancer (Z85.51: Personal history [...] Cysto 12/10/22 - no bladder tumor recurrence Latest Cysto/FISH/Cytol 06/10/23 - neg Cysto IO today without complications. Complete prophy abx. Reference procedural section. -Cysto/FISH/cytol in 6 mos 3. Urinary retention (R33.9: Retention of urine, unspecified) [facility] ER on 09/15/22 due to catheter [...] was 792mL so catheter was replaced. Pt was going to proceed with voiding trial and to start CIC, however pt and his decided to keep Zapien in place rather than CIC given their age and overall health. HH was going to start monthly zapien changes. Pt has been in the ER multiple times due to issues with Zapien. Most recently, pt presented to [facility] ER 09/29/23 and 09/30/23 due to catheter not draining. Last changed 09/29/23 in the ER. Zapien changed in office today, 18Fr. prefers pt to come to our office monthly for catheter changes vs HH due to scheduling. 4. BPH with urinary obstruction (N40.1: Benign prostatic hyperplasia with lower urinary tract symptoms) Not currently taking any BPH meds. Cysto IO today. Reference procedural section for findings. Follow-up With When Contact Information Katia SAMUELS MD, URL [facility] [address], [place] [address] [phone] Additional Instructions: Cysto/FISH/cytol in 6 mos & monthly zapien changes Patient Education Acute Urinary Retention, Male I, Na Gerardo, personally scribed for Dr. Samuels on 10/03/2023 14:19:40. Documentation recorded by the kennyibNa paniagua, accurately reflects the services(s) I performed and decisions made by me. Authenticated by Dr. Samuels on 10/03/2023 14:24:28.14:19:40. Problem List/Past Medical History Ongoing Abdominal aortic aneurysm Acute kidney failure Bladder cancer Bladder mass Bladder stones BPH with uri (more content not included)... Normal [facility] Comment on above: Result Comment: Elec tronically Signed By: Katia SAMUELS MD\.br\Date and Time Signed: 10/03/23 14:24 EDT\.br\Electronically Co-Signed By: Na Gerarod\.br\Date and Time Co-Signed: 10/03/23 14:19 EDT ED Note-Physicianon 10-02-19 ED Note-Physician [id number]#1.00TIFF Normal [facility] CT abdomen pelvis wo conon 0 08-18-2023 CT abdomen pelvis wo [facility] [address] [address] [address] Scan Report Signed Patient: Alex Anderson MR#: [id number] 36 : 1945 Acct:[id number] Age/Sex: 77 / M ADM Date: 08/18/23 Loc: CT Room: Type: [facility] Attending Dr: Margarito Valentine MD [...] aneurysm suboptimally evaluated without IV contrast. The seneca aneurysmal sac has decreased in size now [...] aortic aneurysm with interval decrease of the seneca aneurysmal sac since the prior CTA study. The stent is suboptimally evaluated due to lack of IV contrast. 2. Prostatomegaly with Zapien catheter in place. There appears to be urinary bladder wall thickening and inflammatory changes suspicious for cystitis. Correlation with urinalysis is recommended. Impression dictated by: Rogelio Agustin Jr., D.OSigrid08/18/2023 3:18 PM Dictation Location: [place] [address] Transcribed By: [facility] 08/18/23 1518 Dictated By: Rogelio Agustin Jr, DO 08/18/23 1503 Signed By: 08/18/23 1518 [facility] Creatinine (Bld) [Mass/Vol]O rdered By: Margarito Valentine on 08-18-2023 Creatinine [Mass/Vol] 2.4 mg/dL 0.6-1.3 [facility] Comment on above: ER/ESD physician is notified/shown all ISTAT results.Critical values may be confirmed by laboratory testing ifdeemed necessary by ER attending doctor. ISTAT XRay CREon 08-18-2023 Creatinine [Mass/Vol] 2.4 mg/dL High 0.6-1.3 [facility] Comment on above: Result Comment: ER/E SD physician is notified/shown all ISTAT results. Critical values may be confirmed by laboratory testing if deemed necessary by ER attending doctor. Performed By: #### V [id number], MANDI, B12, MG, PHOS, CMP, FOL, FE and TIBC, URIC #### [facility] [address] ISTAT GFR 26.776 [facility] Comment on above: Result Comment: PERF ORMED BY: [place] [address] PATHOLOGIST CONTRACTOR BUYER OREN OWEN M.D. Performed By: #### V [id number], MANDI, B12, MG, PHOS, CMP, FOL, FE and TIBC, URIC #### [facility] [address] [place] [address] No Panel InformationOrdered By: Margarito Valentine on 08-18-2023 Bedside Estimated GFR (eGFR) 26.776 [facility] ED Note-Physicianon 08-07-19 ED Note-Physician [id number]#1.00TIFF [facility] ED Note-Physicianon 08-06-19 ED Note-Physician [id number]#1.00TIFF [facility] ED Note-Physician [id number]#1.00TIFF [facility] ED Note-Physician [id number]#1.00TIFF [facility] Lab Reportson 08-06-2023 Lab Reports [id number]#1.00TIFF [facility] Lab Reports [id number]#1.00TIFF [facility] Reminderson 08-01-2023 Reminders - From: Dana Rivas To: [facility] - Recalls Samuels; Cc: Dana Rivas; Sent: 03/14/2023 08:18:18 EDT Show up: 07/25/2023 08:18:00 EST Subject: cysto/fish/cytol Due Date/Time: 08/11/2023 08:18:00 EDT Reminder/Recall Patient is due in August 2023 for 3 month cysto/fish/cytol Patient sched for 09/09/23 in [facility]. he will be due in November 2023.[facility] Physician Orderon 07-04-2023 Physician Order [id number]#1.00TIFF [facility] Patient Educationon 06-30-19 Patient Education Urology [...] these instructions at home: Medicines ? Take gwfy-jvq-hzicfkx and prescription medicines only as told by [...] provider. Document Revised: 01/31/2021 Document Reviewed: 01/31/2021 [employer] Patient Education ? 2022 [email or web address]. [facility] Urology Office/Clinic Noteon 06-30-2023 Urology Office/Clinic Note Chief Complaint f/u to Diann [facility] Staff F/u to Diann done 06/10/23. Dx: [...] Urinary retention (R33.9: Retention of urine, unspecified) TB ER on 09/15/22 due to catheter clogged. [...] URL [facility] [address], [place] [phone]- [phone] Additional Instructions: 1 day for catheter removal [...] Use:. Cigarettes, (more content not included)... Normal [facility] Comment on above: Result Comment: Elec tronically Signed By: Katia SAMUELS MD\.br\Date and Time Signed: 06/30/23 14:32 EST\.br\Electronically Co-Signed By: Apple Escoto\.br\Date and Time Co-Signed: 06/30/23 14:30 EST [facility] Fish [facility] Urine Cyt [facility] ([facility])on 06-26-2023 [facility] Revision Information Invalid Interpretation Code [facility] Comment on above: Result Comment: Brayan ection Reason -[ Fredi Stephen, 06/26/23 - 10:32 ] Corrected report issued to update PMS/PWS. The diagnosis remains unchanged. Correction Notes - Performed By: #### 1 [id number] #### [facility] [address] [place] [address] Ambulatory Visit Summaryon 0 06-16-2023 Ambulatory Visit Summary ALEX ANDERSON :1945 Visit Date:06/16/2023 Ambulatory Visit Instructions Your Diagnosis BPH with urinary obstruction Your Care Team Attending Physician - Katia SAMUELS MD Primary Care Physician - IDANIA CASILLAS, STANLEY Rich This Is Your Medications List acetaminophen-hydrocodone ([place] 325 mg-7.5 mg oral tablet) albuterol (Albuterol [...] Katia SAMUELS MD Where: [facility] Normal [facility] Consent for Procedure/Surger yon 06-10-2023 Consent for Procedure/Surgery [id number]#[id number] Normal [facility] Consent for Treatmenton 05-26 Consent for Treatment [id number]#1.00TIFF Normal [facility] IntraOperative Documentson 0 06-10-2023 IntraOperative Documents [id number]#1.00TIFF [facility] Main OR Intraoperative Recor don 06-10-2023 Main OR Intraoperative Record IntraOp Document Type FTURO Summary Primary Physician: Katia SAMUELS MD Finalized Date/Time: 06/10/23 15:18:46 Pt. Name: ALEX ANDERSON/Sex: 1945 Male Med Rec #: [id number] Physician: Katia SAMUELS MD Financial #: [id number] Pt. 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 Name: ALEX ANDERSON/Sex: 1945 Male Med Rec #: [id number] Physician: Katia SAMUELS MD Financial #: [id number] Pt. Type: O Room/Bed: / Admit/Disch: 06/10/23 [...] GLASSES; BILATERAL Limitations: UP AD JOSIAH. 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 [facility] Comment on above: Result [...] with antibiotic coverage, Follow up arranged. Normal [facility] Comment on above: Result Comment: Elec tronically Signed By: ARLENE CASILLAS, Katia Delgado\Date and Time Signed: 06/10/23 15:20 EST [facility] Fish and Urine Cyt [facility] ([facility])on 06-10-2023 [facility] Method of Extraction Catheterized Normal [facility] Comment on above: Performed By: #### 1 [id number] #### [facility] [address] [place] [address] [facility] Number of Jars 1 Invalid Interpretation Code [facility] Comment on above: Performed By: #### 1 [id number] #### [facility] [address] [place] [address] [facility] Specimen Urine Normal [facility] Comment on above: Performed By: #### 1 [id number] #### [facility] [address] [place] [address] [facility] Type of Service Technical Only Normal [facility] Comment on above: Performed By: #### 1 [id number] #### [facility] [address] [place] [address] Alanine aminotransferase [En zymatic activity/volume] in Serum or PlasmaOrdered By: Celia Ramos on 04-08-2023 ALT [Catalytic activity/Vol] 17 U/L 7-52 [facility] Albumin [Mass/volume] in Ser um or Plasma by Bromocresol green (BCG) dye binding methoOrdered By: Celia Ramos on 04-08-2023 Albumin BCG dye [Mass/Vol] 4.2 g/dL 3.5-5.7 [facility] Alkaline phosphatase [Enzyma tic activity/volume] in Serum or PlasmaOrdered By: Celia Ramos on 04-08-2023 ALP [Catalytic activity/Vol] 72 U/L 34-104 [facility] Aspartate aminotransferase [ Enzymatic activity/volume] in Serum or PlasmaOrdered By: Celia Ramos on 11-14-2023 AST [Catalytic activity/Vol] 16 U/L 13-39 [facility] Automated erythrocytes count in urine sediment (number/area)Ordered By: Celia Ramos on 04-08-2023 RBC Auto (Urine sed) [#/Area] 3-4 [HPF] 0-4 [facility] Automated leukocytes count i n urine sediment (number/area)Ordered By: Celia Ramos on 04-08-2023 WBC Auto (Urine sed) [#/Area] 50-100 [HPF] 0-4 [facility] Bilirubin Test strip Ql (U)O rdered By: Celia Ramos on 04-08-2023 Bilirubin Ql (U) Negative Negative [facility] Bilirubin.total [Mass/volume ] in Serum or PlasmaOrdered By: Celia Ramos on 04-08-2023 Bilirubin [Mass/Vol] 0.5 mg/dL 0.3-1.0 [facility] Calcium [Mass/volume] in Ser um or PlasmaOrdered By: Celia Ramos on 04-08-2023 Calcium [Mass/Vol] 9.3 mg/dL 8.6-10.3 [facility] Carbon dioxide, total [Moles /volume] in Serum or PlasmaOrdered By: Celia Ramos on 04-08-2023 CO2 [Moles/Vol] 31.6 mmol/L 21.0-31.0 [facility] Chloride [Moles/volume] in S marium or PlasmaOrdered By: Celia Ramos on 04-08-2023 Chloride [Moles/Vol] 107 mmol/L 98-107 [facility] Cholesterol [Mass/volume] in Serum or PlasmaOrdered By: Teo Stokes on 04-08-2023 Cholesterol [Mass/Vol] 107 mg/dL 140-200 [facility] Comment on above: Chol less than 200 m g/dl low riskChol 201-239 mg/dl borderline riskChol 240 mg/dl and greater high risk Cholesterol in LDL Calc [Mas s/Vol]Ordered By: Teo Stokes on 04-08-2023 Cholesterol in LDL [Mass/Vol] 47 mg/dL 0-100 [facility] Comment on above: LDL ATP III CLASSIFI CATIONLDL less than 100 mg/dL OptimalLDL 100-129 mg/dL Near or above optimalLDL 130-159 mg/dL Borderline highLDL 160-189 mg/dL HighLDL greater than 189 mg/dL Very high Cholesterol in VLDL Calc [Ma ss/Vol]Ordered By: Teo Stokes on 04-08-2023 Cholesterol in VLDL [Mass/Vol] 26 mg/dL [facility] Color Auto (U)Ordered By: Jonh celestino Ramos on 04-08-2023 Color (U) Yellow Yellow [facility] Comprehensive Metabolic Pane howard 04-08-2023 Albumin [Mass/Vol] 4.2 g/dL Normal 3.5-5.7 [facility] Comment on above: Order Comment: Reaso n for Exam Acute kidney injury;Chronic kidney disease, stage 3b;Bilater Performed By: #### V [id number], MANDI, B12, MG, PHOS, CMP, FOL, FE and TIBC, URIC #### [facility] [address] Albumin/Globulin [Mass ratio] 1.5 {ratio} Normal [facility] Comment on above: Order Comment: Reaso n for Exam Acute kidney injury;Chronic kidney disease, stage 3b;Bilater Performed By: #### V [id number], MANDI, B12, MG, PHOS, CMP, FOL, FE and TIBC, URIC #### [facility] [address] [place] [address] [facility] ALP [Catalytic activity/Vol] 72 U/L Normal 34-104 [facility] Comment on above: Order Comment: Reaso n for Exam Acute kidney injury;Chronic kidney disease, stage 3b;Bilater Performed By: #### V [id number], MANDI, B12, MG, PHOS, CMP, FOL, FE and TIBC, URIC #### [facility] [address] [place] [id number] [place] ALT [Catalytic activity/Vol] 17 U/L Normal 7-52 [facility] Comment on above: Order Comment: Reaso n for Exam Acute kidney injury;Chronic kidney disease, stage 3b;Bilater Performed By: #### V [id number], MANDI, B12, MG, PHOS, CMP, FOL, FE and TIBC, URIC #### [facility] [address] Anion gap [Moles/Vol] 8.9 mmol/L Normal 6.0-15.0 [facility] Comment on above: Order Comment: Reaso n for Exam Acute kidney injury;Chronic kidney disease, stage 3b;Bilater Performed By: #### V [id number], MANDI, B12, MG, PHOS, CMP, FOL, FE and TIBC, URIC #### [facility] [address] AST [Catalytic activity/Vol] 16 U/L Normal 13-39 [facility] Comment on above: Order Comment: Reaso n for Exam Acute kidney injury;Chronic kidney disease, stage 3b;Bilater Performed By: #### V [id number], MANDI, B12, MG, PHOS, CMP, FOL, FE and TIBC, URIC #### [facility] [address] Bilirubin [Mass/Vol] 0.5 mg/dL Normal 0.3-1.0 [facility] Comment on above: Order Comment: Reaso n for Exam Acute kidney injury;Chronic kidney disease, stage 3b;Bilater Performed By: #### V [id number], MANDI, B12, MG, PHOS, CMP, FOL, FE and TIBC, URIC #### [facility] [address] Calcium [Mass/Vol] 9.3 mg/dL Normal 8.6-10.3 [facility] Comment on above: Order Comment: Reaso n for Exam Acute kidney injury;Chronic kidney disease, stage 3b;Bilater Performed By: #### V [id number], MANDI, B12, MG, PHOS, CMP, FOL, FE and TIBC, URIC #### [facility] [address] Chloride [Moles/Vol] 107 mmol/L Normal 98-107 [facility] Comment on above: Order Comment: Reaso n for Exam Acute kidney injury;Chronic kidney disease, stage 3b;Bilater Performed By: #### V [id number], MANDI, B12, MG, PHOS, CMP, FOL, FE and TIBC, URIC #### [facility] [address] CO2 [Moles/Vol] 31.6 mmol/L High 21.0-31.0 [facility] Comment on above: Order Comment: Reaso n for Exam Acute kidney injury;Chronic kidney disease, stage 3b;Bilater Performed By: #### V [id number], MANDI, B12, MG, PHOS, CMP, FOL, FE and TIBC, URIC #### [facility] [address] Creatinine [Mass/Vol] 1.41 mg/dL High 0.70-1.30 [facility] Comment on above: Order Comment: Reaso n for Exam Acute kidney injury;Chronic kidney disease, stage 3b;Bilater Performed By: #### V [id number], MANDI, B12, MG, PHOS, CMP, FOL, FE and TIBC, URIC #### [facility] [address] GFR/1.73 sq M.predicted MDRD (S/P/Bld) [Vol rate/Area] 50.692 mL/min/{1.73_m2} Normal [facility] Comment on above: Order Comment: Reaso n for Exam Acute kidney injury;Chronic kidney disease, stage 3b;Bilater Performed By: #### V [id number], MANDI, B12, MG, PHOS, CMP, FOL, FE and TIBC, URIC #### [facility] [address] Globulin (S) [Mass/Vol] 2.8 g/dL Normal [facility] Comment on above: Order Comment: Reaso n for Exam Acute kidney injury;Chronic kidney disease, stage 3b;Bilater Performed By: #### V [id number], MANDI, B12, MG, PHOS, CMP, FOL, FE and TIBC, URIC #### [facility] [address] Glucose [Mass/Vol] 107 mg/dL High 70-100 [facility] Comment on above: Order Comment: Reaso n for Exam Acute kidney injury;Chronic kidney disease, stage 3b;Bilater Result Comment: [facility] Glucose Reference Range is dependent on time and content of last meal. Glucose of more than 200 mg/dL in a nonstressed, ambulatory subject supports the diagnosis of Diabetes Mellitus. ADA recommended reference range Performed By: #### V [id number], MANDI, B12, MG, PHOS, CMP, FOL, FE and TIBC, URIC #### [facility] [address] Potassium [Moles/Vol] 4.5 mmol/L Normal 3.5-5.1 [facility] Comment on above: Order Comment: Reaso n for Exam Acute kidney injury;Chronic kidney disease, stage 3b;Bilater Performed By: #### V [id number], MANDI, B12, MG, PHOS, CMP, FOL, FE and TIBC, URIC #### [facility] [address] Protein [Mass/Vol] 7.0 g/dL Normal 6.4-8.9 [facility] Comment on above: Order Comment: Reaso n for Exam Acute kidney injury;Chronic kidney disease, stage 3b;Bilater Performed By: #### V [id number], MANDI, B12, MG, PHOS, CMP, FOL, FE and TIBC, URIC #### [facility] [address] Sodium [Moles/Vol] 143 mmol/L Normal 136-145 [facility] Comment on above: Order Comment: Reaso n for Exam Acute kidney injury;Chronic kidney disease, stage 3b;Bilater Performed By: #### V [id number], MANDI, B12, MG, PHOS, CMP, FOL, FE and TIBC, URIC #### [facility] [address] [place] [address] [place] Urea nitrogen [Mass/Vol] 27 mg/dL High 7-25 [facility] Comment on above: Order Comment: Reaso n for Exam Acute kidney injury;Chronic kidney disease, stage 3b;Bilater Performed By: #### V [id number], MANDI, B12, MG, PHOS, CMP, FOL, FE and TIBC, URIC #### [facility] [address] Creatinine [Mass/volume] in Serum or PlasmaOrdered By: Celia Ramos on 04-08-2023 Creatinine [Mass/Vol] 1.41 mg/dL 0.70-1.30 [facility] Creatinine [Mass/volume] in UrineOrdered By: Celia Ramos on 04-08-2023 Creatinine (U) [Mass/Vol] 90.0 mg/dL 14.0-26.0 [facility] Dipstick and Microscopicon 1 06-08-2022 Appearance (U) Cloudy Critically abnormal Clear [facility] Comment on above: Order Comment: Reaso n for Exam Acute kidney injury;Chronic kidney disease, stage 3b;Bilater Performed By: #### V [id number], MANDI, B12, MG, PHOS, CMP, FOL, FE and TIBC, URIC #### [facility] [address] Bacteria,Urine 4+ High None Seen [facility] Comment on above: Order Comment: Reaso n for Exam Acute kidney injury;Chronic kidney disease, stage 3b;Bilater Performed By: #### V [id number], MANDI, B12, MG, PHOS, CMP, FOL, FE and TIBC, URIC #### [facility] [address] [place] [address] [place] Bilirubin,Urine Negative Normal Negative [facility] Comment on above: Order Comment: Reaso n for Exam Acute kidney injury;Chronic kidney disease, stage 3b;Bilater Performed By: #### V [id number], MANDI, B12, MG, PHOS, CMP, FOL, FE and TIBC, URIC #### [facility] [address] [place] [id number] [place] Color (U) Yellow Normal Yellow [facility] Comment on above: Order Comment: Reaso n for Exam Acute kidney injury;Chronic kidney disease, stage 3b;Bilater Performed By: #### V [id number], MANDI, B12, MG, PHOS, CMP, FOL, FE and TIBC, URIC #### [facility] [address] [place] [id number] [place] Glucose Ql (U) Normal Normal Normal [facility] Comment on above: Order Comment: Reaso n for Exam Acute kidney injury;Chronic kidney disease, stage 3b;Bilater Performed By: #### V [id number], MANDI, B12, MG, PHOS, CMP, FOL, FE and TIBC, URIC #### [facility] [address] [place] [address] Hyaline Casts,Urine 9-19 High 0-8 [facility] Comment on above: Order Comment: Reaso n for Exam Acute kidney injury;Chronic kidney disease, stage 3b;Bilater Result Comment: PERF ORMED BY: [place] [address] PATHOLOGIST CONTRACTOR BUYER OREN OWEN M.D. Performed By: #### V [id number], MANDI, B12, MG, PHOS, CMP, FOL, FE and TIBC, URIC #### [address] Ketones Ql (U) Negative Normal Negative [facility] Comment on above: Order Comment: Reaso n for Exam Acute kidney injury;Chronic kidney disease, stage 3b;Bilater Performed By: #### V [id number], MANDI, B12, MG, PHOS, CMP, FOL, FE and TIBC, URIC #### [facility] [address] [place] [address] Leukocyte esterase Test strip Ql (U) 4+ High Negative [facility] Comment on above: Order Comment: Reaso n for Exam Acute kidney injury;Chronic kidney disease, stage 3b;Bilater Performed By: #### V [id number], MANDI, B12, MG, PHOS, CMP, FOL, FE and TIBC, URIC #### [facility] [address] [place] [address] [place] Nitrite,Urine Positive High Negative [facility] Comment on above: Order Comment: Reaso n for Exam Acute kidney injury;Chronic kidney disease, stage 3b;Bilater Performed By: #### V [id number], MANDI, B12, MG, PHOS, CMP, FOL, FE and TIBC, URIC #### [facility] [address] [place] [address] Occult Blood,Urine 1+ High Negative [facility] Comment on above: Order Comment: Reaso n for Exam Acute kidney injury;Chronic kidney disease, stage 3b;Bilater Result Comment: PERF ORMED BY: [place] [address] PATHOLOGIST CONTRACTOR BUYER OREN OWEN M.D. Performed By: #### V [id number], MANDI, B12, MG, PHOS, CMP, FOL, FE and TIBC, URIC #### [facility] [address] [place] [address] pH (U) 7.0 [pH] Normal 5.0-9.0 [facility] Comment on above: Order Comment: Reaso n for Exam Acute kidney injury;Chronic kidney disease, stage 3b;Bilater Performed By: #### V [id number], MANDI, B12, MG, PHOS, CMP, FOL, FE and TIBC, URIC #### [address] Protein,Urine Trace High Negative [facility] Comment on above: Order Comment: Reaso n for Exam Acute kidney injury;Chronic kidney disease, stage 3b;Bilater Performed By: #### V [id number], MANDI, B12, MG, PHOS, CMP, FOL, FE and TIBC, URIC #### [facility] [address] [place] [address] RBC,Urine 3-4 Normal 0-4 [facility] Comment on above: Order Comment: Reaso n for Exam Acute kidney injury;Chronic kidney disease, stage 3b;Bilater Performed By: #### V [id number], MANDI, B12, MG, PHOS, CMP, FOL, FE and TIBC, URIC #### [facility] [address] [place] [address] Specificy [place],Urine 1.017 Normal 1.00 1-1.03 0 [facility] Comment on above: Order Comment: Reaso n for Exam Acute kidney injury;Chronic kidney disease, stage 3b;Bilater Performed By: #### V [id number], MANDI, B12, MG, PHOS, CMP, FOL, FE and TIBC, URIC #### [facility] [address] [place] [address] Squamous Epithelial Cell,Urine 0-1 Normal 0-2 [facility] Comment on above: Order Comment: Reaso n for Exam Acute kidney injury;Chronic kidney disease, stage 3b;Bilater Performed By: #### V [id number], MANDI, B12, MG, PHOS, CMP, FOL, FE and TIBC, URIC #### [facility] [address] Urobilinogen,Urine Normal Normal Normal [facility] Comment on above: Order Comment: Reaso n for Exam Acute kidney injury;Chronic kidney disease, stage 3b;Bilater Performed By: #### V [id number], MANDI, B12, MG, PHOS, CMP, FOL, FE and TIBC, URIC #### [facility] [address] WBC,Urine 50-100 High 0-4 [facility] Comment on above: Order Comment: Reaso n for Exam Acute kidney injury;Chronic kidney disease, stage 3b;Bilater Performed By: #### V [id number], MANDI, B12, MG, PHOS, CMP, FOL, FE and TIBC, URIC #### [facility] [address] Erythrocyte distribution wid th Auto (RBC) [Ratio]Ordered By: Celia Ramos on 04-08-2023 Erythrocyte distribution width (RBC) [Ratio] 15.7 % 12.0-14.8 [facility] Ferritinon 04-08-2023 Ferritin [Mass/Vol] 34.1 ng/mL Normal 23.9-336.2 [facility] Comment on above: Order Comment: Reaso n for Exam Acute kidney injury;Chronic kidney disease, stage 3b;Bilater Performed By: #### V [id number], MANDI, B12, MG, PHOS, CMP, FOL, FE and TIBC, URIC #### [facility] [address] Ferritin [Mass/volume] in Se rum or PlasmaOrdered By: Celia Ramos on 04-08-2023 Ferritin [Mass/Vol] 34.1 ng/mL 23.9-336.2 [facility] Folateon 04-08-2023 Folate 34.0 ng/mL Normal >5.9 [facility] Comment on above: Order Comment: Reaso n for Exam Acute kidney injury;Chronic kidney disease, stage 3b;Bilater Result Comment: Caryn te reference range: >5.9 ng/ml The WHO technical consultation on folate and vitamin b12 deficiencies has determined that folate concentrations less than 4 ng/ml are considered deficient. Performed By: #### V [id number], MANDI, B12, MG, PHOS, CMP, FOL, FE and TIBC, URIC #### [facility] [address] Folate [Mass/volume] in Seru m or PlasmaOrdered By: Celia Ramos on 04-08-2023 Folate [Mass/Vol] 34.0 ng/mL >5.9 [facility] Comment on above: Folate reference ran ge: >5.9 ng/mlThe WHO technical consultation on folate and vitamin [id number] has determined that folate concentrations lessthan 4 ng/ml are considered deficient. Globulin Calc (S) [Mass/Vol] Ordered By: Celia Ramos on 04-08-2023 Globulin (S) [Mass/Vol] 2.8 g/dL [facility] Glucose [Mass/volume] in Ser um or PlasmaOrdered By: Celia Ramos on 04-08-2023 Glucose [Mass/Vol] 107 mg/dL 70-100 [facility] Comment on above: ADA recommended refe rence rangeRandom Glucose Reference Range is dependent on time and content of last meal. Glucose of more than 200 mg/dL in a nonstressed, ambulatory subject supports the diagnosis of Diabetes Mellitus. Hematocrit Auto (Bld) [Volum e fraction]Ordered By: Celia Ramos on 04-08-2023 Hematocrit (Bld) [Volume fraction] 43.8 % 38.8-50.0 [facility] Hemoglobin [Mass/volume] in BloodOrdered By: Celia Ramos on 04-08-2023 Hemoglobin (Bld) [Mass/Vol] 14.3 g/dL 13.0-17.0 [facility] Hemogram CBC Without Diffon 04-08-2023 Erythrocyte distribution width (RBC) [Ratio] 15.7 % High 12.0-14.8 [facility] Comment on above: Order Comment: Reaso n for Exam Acute kidney injury;Chronic kidney disease, stage 3b;Bilater Performed By: #### V [id number], MANDI, B12, MG, PHOS, CMP, FOL, FE and TIBC, URIC #### [facility] [address] Hematocrit (Bld) [Volume fraction] 43.8 % Normal 38.8-50.0 [facility] Comment on above: Order Comment: Reaso n for Exam Acute kidney injury;Chronic kidney disease, stage 3b;Bilater Performed By: #### V [id number], MANDI, B12, MG, PHOS, CMP, FOL, FE and TIBC, URIC #### [address] Hemoglobin (Bld) [Mass/Vol] 14.3 g/dL Normal 13.0-17.0 [facility] Comment on above: Order Comment: Reaso n for Exam Acute kidney injury;Chronic kidney disease, stage 3b;Bilater Performed By: #### V [id number], MANDI, B12, MG, PHOS, CMP, FOL, FE and TIBC, URIC #### [facility] [address] [place] [address] MCH (RBC) [Entitic mass] 27.3 pg Low 27.5-35.2 [facility] Comment on above: Order Comment: Reaso n for Exam Acute kidney injury;Chronic kidney disease, stage 3b;Bilater Performed By: #### V [id number], MANDI, B12, MG, PHOS, CMP, FOL, FE and TIBC, URIC #### [address] MCV (RBC) [Entitic vol] 83.8 fL Normal 83.5-101 F [facility] Comment on above: Order Comment: Reaso n for Exam Acute kidney injury;Chronic kidney disease, stage 3b;Bilater Performed By: #### V [id number], MANDI, B12, MG, PHOS, CMP, FOL, FE and TIBC, URIC #### [address] Mean Corpuscular HGB Conc 32.6 g/dL Normal 32.5-35.6 [facility] Comment on above: Order Comment: Reaso n for Exam Acute kidney injury;Chronic kidney disease, stage 3b;Bilater Performed By: #### V [id number], MANDI, B12, MG, PHOS, CMP, FOL, FE and TIBC, URIC #### [address] Platelet mean volume (Bld) [Entitic vol] 8.6 fL Normal 6.6-10.1 [facility] Comment on above: Order Comment: Reaso n for Exam Acute kidney injury;Chronic kidney disease, stage 3b;Bilater Result Comment: PERF ORMED BY: [place] [address] PATHOLOGIST CONTRACTOR BUYER OREN OWEN M.D. Performed By: #### V [id number], MANDI, B12, MG, PHOS, CMP, FOL, FE and TIBC, URIC #### [address] Platelets (Bld) [#/Vol] 201 10*3/uL Normal 150-450 [facility] Comment on above: Order Comment: Reaso n for Exam Acute kidney injury;Chronic kidney disease, stage 3b;Bilater Performed By: #### V [id number], MANDI, B12, MG, PHOS, CMP, FOL, FE and TIBC, URIC #### [address] RBC (Bld) [#/Vol] 5.22 10*6/uL Normal 3.90-5.60 [facility] Comment on above: Order Comment: Reaso n for Exam Acute kidney injury;Chronic kidney disease, stage 3b;Bilater Performed By: #### V [id number], MANDI, B12, MG, PHOS, CMP, FOL, FE and TIBC, URIC #### [address] WBC (Bld) [#/Vol] 8.4 10*3/uL Normal 4.1-10.5 [facility] Comment on above: Order Comment: Reaso n for Exam Acute kidney injury;Chronic kidney disease, stage 3b;Bilater Performed By: #### V [id number], MANDI, B12, MG, PHOS, CMP, FOL, FE and TIBC, URIC #### [facility] [address] Iron [Mass/volume] in Serum or PlasmaOrdered By: Celia Ramos on 04-08-2023 Iron [Mass/Vol] 53 ug/dL 50-212 [facility] Iron and TIBC Profileon 03-26 % Iron Saturation 14.3 % Low 20-50 [facility] Comment on above: Order Comment: Reaso n for Exam Acute kidney injury;Chronic kidney disease, stage 3b;Bilater Performed By: #### V [id number], MANDI, B12, MG, PHOS, CMP, FOL, FE and TIBC, URIC #### [facility] [address] [place] [id number] [facility] Iron [Mass/Vol] 53 ug/dL Normal 50-212 [facility] Comment on above: Order Comment: Reaso n for Exam Acute kidney injury;Chronic kidney disease, stage 3b;Bilater Performed By: #### V [id number], MANDI, B12, MG, PHOS, CMP, FOL, FE and TIBC, URIC #### [facility] [address] [place] [address] [facility] Total Iron Binding Capacity 370 ug/dL Normal 255-450 [facility] Comment on above: Order Comment: Reaso n for Exam Acute kidney injury;Chronic kidney disease, stage 3b;Bilater Performed By: #### V [id number], MANDI, B12, MG, PHOS, CMP, FOL, FE and TIBC, URIC #### [facility] [address] [place] [id number] [facility] Transferrin [Mass/Vol] 264 mg/dL Normal 203-362 [facility] Comment on above: Order Comment: Reaso n for Exam Acute kidney injury;Chronic kidney disease, stage 3b;Bilater Performed By: #### V [id number], MANDI, B12, MG, PHOS, CMP, FOL, FE and TIBC, URIC #### [facility] [address] Iron binding capacity [Mass/ volume] in Serum or PlasmaOrdered By: Celia Ramos on 04-08-2023 Iron binding capacity [Mass/Vol] 370 ug/dL 255-450 [facility] Iron saturation [Mass Fracti on] in Serum or PlasmaOrdered By: Celia Ramos on 04-08-2023 Iron saturation [Mass fraction] 14.3 % 20-50 [facility] Ketones Auto test strip (U) [Mass/Vol]Ordered By: Celia Ramos on 04-08-2023 Ketones (U) [Mass/Vol] Negative Negative [facility] - UrinalysisOrder ed By: Celia Ramos on 04-08-2023 Hyaline casts LM Ql (Urine sed) 02-11 [LPF] 0-8 [facility] Leukocytes [#/volume] correc phil for nucleated erythrocytes in Blood by Automated counOrdered By: Celia Ramos on 04-08-2023 WBC corrected for nucl RBC Auto (Bld) [#/Vol] 8.4 10*3/uL 4.1-10.5 [facility] Lipid Panelon 04-08-2023 Cholesterol [Mass/Vol] 107 mg/dL Low 140-200 [facility] Comment on above: Result Comment: Chol less than 200 mg/dl low risk Chol 201-239 mg/dl borderline risk Chol 240 mg/dl and greater high risk Performed By: #### L IPID #### [facility] [address] [place] [address] [place] Cholesterol in HDL [Mass/Vol] 34 mg/dL Normal 23-92 [facility] Comment on above: Result Comment: HDL CHOL ATP-III CLASSIFICATION Cardiovascular Risk HDL > or equal to 60 mg/dL LOW HDL < 40 mg/dL HIGH Performed By: #### L IPID #### [facility] [address] [place] [address] [facility] Cholesterol.total/Sonya sterol in HDL [Mass ratio] 3.1 {ratio} Normal <5.0 [facility] Comment on above: Result Comment: PERF ORMED BY: [place] [address] PATHOLOGIST CONTRACTOR BUYER OREN OWEN M.D. Performed By: #### L IPID #### [facility] [address] [place] [address] LDL Cholesterol,Calculated 47 mg/dL Normal 0-100 [facility] Comment on above: Result Comment: LDL ATP III CLASSIFICATION LDL less than 100 mg/dL Optimal LDL 100-129 mg/dL Near or above optimal LDL 130-159 mg/dL Borderline high LDL 160-189 mg/dL High LDL greater than 189 mg/dL Very high Performed By: #### L IPID #### [facility] [address] [place] [address] Triglyceride w/Reflex 131 mg/dL Normal 0-149 [facility] Comment on above: Result Comment: TRIG ATP III CLASSIFICATION TRIG less than 150 mg/dL Normal TRIG 150-199 mg/dL Borderline high TRIG 200-500 mg/dL High TRIG greater than 500 mg/dL Very high Standard traceable to the Center for Disease Conrtrol and Prevention (CDC) test method. Performed By: #### L IPID #### [facility] [address] [place] [address] VLDL CHOLESTEROL 26 mg/dL Normal [facility] Comment on above: Performed By: #### L IPID #### [facility] [address] [place] [address] MCH Auto (RBC) [Entitic mass ]Ordered By: Celia Ramos on 04-08-2023 MCH (RBC) [Entitic mass] 27.3 pg 27.5-35.2 [facility] MCHC Auto (RBC) [Mass/Vol]Or dered By: Celia Ramos on 04-08-2023 MCHC (RBC) [Mass/Vol] 32.6 g/dL 32.5-35.6 [facility] MCV Auto (RBC) [Entitic vol] Ordered By: Celia Ramos on 04-08-2023 MCV (RBC) [Entitic vol] 83.8 fL 83.5-101 F [facility] Magnesiumon 04-08-2023 Magnesium [Mass/Vol] 2.2 mg/dL Normal 1.9-2.7 [facility] Comment on above: Order Comment: Reaso n for Exam Acute kidney injury;Chronic kidney disease, stage 3b;Bilater Performed By: #### V [id number], MANDI, B12, MG, PHOS, CMP, FOL, FE and TIBC, URIC #### [facility] [address] [place] [address] [place] Magnesium [Mass/volume] in S maruim or PlasmaOrdered By: Celia Ramos on 04-08-2023 Magnesium [Mass/Vol] 2.2 mg/dL 1.9-2.7 [facility] Nitrite Test strip Ql (U)Ord ered By: Celia Ramos on 04-08-2023 Nitrite Ql (U) Positive Negative [facility] No Panel InformationOrdered By: Celia Ramos on 04-08-2023 Estimated GFR (CKD-EPI) 50.692 mL/Min [facility] Creatinine Clearance (Chem N/A [facility] Parathyrin.intact [Mass/volu me] in Serum or PlasmaOrdered By: Celia Ramos on 04-08-2023 Parathyrin.intact [Mass/Vol] 76.6 pg/mL [facility] Parathyroid Hormone Intacton 04-08-2023 Parathyroid Hormone Intact 76.6 pg/mL Normal [facility] Comment on above: Order Comment: Reaso n for Exam Acute kidney injury;Chronic kidney disease, stage 3b;Bilater Result Comment: PERF ORMED BY: [facility] [address] [place] [address] PATHOLOGIST CONTRACTOR BUYER OREN OWEN M.D. Performed By: #### V [id number], MANDI, B12, MG, PHOS, CMP, FOL, FE and TIBC, URIC #### [facility] [address] [place] [address] [place] Phosphate [Mass/volume] in S marium or PlasmaOrdered By: Celia Ramos on 04-08-2023 Phosphate [Mass/Vol] 2.8 mg/dL 2.5-4.5 [facility] Phosphoruson 04-08-2023 Phosphate [Mass/Vol] 2.8 mg/dL Normal 2.5-4.5 [facility] Comment on above: Order Comment: Reaso n for Exam Acute kidney injury;Chronic kidney disease, stage 3b;Bilater Performed By: #### V [id number], MANDI, B12, MG, PHOS, CMP, FOL, FE and TIBC, URIC #### [facility] [address] Platelet mean volume Auto (B ld) [Entitic vol]Ordered By: Celia Ramos on 04-08-2023 Platelet mean volume (Bld) [Entitic vol] 8.6 fL 6.6-10.1 [facility] Platelets Auto (Bld) [#/Vol] Ordered By: Celia Ramos on 04-08-2023 Platelets (Bld) [#/Vol] 201 10*3/uL 150-450 [facility] Potassium [Moles/volume] in Serum or PlasmaOrdered By: Celia Ramos on 04-08-2023 Potassium [Moles/Vol] 4.5 mmol/L 3.5-5.1 [facility] Protein Auto test strip (U) [Mass/Vol]Ordered By: Celia Ramos on 04-08-2023 Protein (U) [Mass/Vol] Trace mg/dL Negative [facility] Protein Creat Ratio Ur Rando mon 04-08-2023 Creatinine, Urine (Random) 90.0 mg/dL High 14.0-26.0 [facility] Comment on above: Order Comment: Reaso n for Exam Acute kidney injury;Chronic kidney disease, stage 3b;Bilater Performed By: #### V [id number], MANDI, B12, MG, PHOS, CMP, FOL, FE and TIBC, URIC #### [facility] [address] Protein (U) [Mass/Vol] 30 mg/dL High 0-9 [facility] Comment on above: Order Comment: Reaso n for Exam Acute kidney injury;Chronic kidney disease, stage 3b;Bilater Performed By: #### V [id number], MANDI, B12, MG, PHOS, CMP, FOL, FE and TIBC, URIC #### [facility] [address] [place] [address] [place] Urine Protein/Creatinine Ratio 333 mg/g{Cre} High 0-200 [facility] Comment on above: Order Comment: Reaso n for Exam Acute kidney injury;Chronic kidney disease, stage 3b;Bilater Result Comment: PERF ORMED BY: [facility] [address] [facility] [place] [address] PATHOLOGIST CONTRACTOR BUYER OREN OEWN M.D. Performed By: #### V [id number], MANDI, B12, MG, PHOS, CMP, FOL, FE and TIBC, URIC #### [facility] [address] [place] [address] [place] Protein [Mass/volume] in Ser um or PlasmaOrdered By: Celia Ramos on 04-08-2023 Protein [Mass/Vol] 7.0 g/dL 6.4-8.9 [facility] Protein [Mass/volume] in Uri neOrdered By: Celia Ramos on 04-08-2023 Protein (U) [Mass/Vol] 30 mg/dL 0-9 [facility] RBC Auto (Bld) [#/Vol]Ordere d By: Celia Ramos on 04-08-2023 RBC (Bld) [#/Vol] 5.22 10*6/uL 3.90-5.60 [facility] Serum or plasma albumin/glob ulin mass ratioOrdered By: Celia Ramos on 04-08-2023 Albumin/Globulin [Mass ratio] 1.5 {ratio} [facility] Serum or plasma anion gap de terminationOrdered By: Celia Ramos on 04-08-2023 Anion gap [Moles/Vol] 8.9 mmol/L 6.0-15.0 [facility] Serum or plasma high density lipoprotein (HDL) cholesterol measurementOrdered By: Teo Stokes on 04-08-2023 Cholesterol in HDL [Mass/Vol] 34 mg/dL 23-92 [facility] Comment on above: HDL CHOL ATP-III CLA SSIFICATION Cardiovascular RiskHDL > or equal to 60 mg/dL LOWHDL < 40 mg/dL HIGH Serum or plasma total choles terol/high density lipoprotein (HDL) cholesterol mass ratOrdered By: Teo Stokes on 04-08-2023 Cholesterol.total/Sonya sterol in HDL [Mass ratio] 3.1 {ratio} <5.0 [facility] Sodium [Moles/volume] in Ser um or PlasmaOrdered By: Celia Ramos on 04-08-2023 Sodium [Moles/Vol] 143 mmol/L 136-145 [facility] Specific gravity Auto test s trip (U) [Rel density]Ordered By: Celia Ramos on 04-08-2023 Specific gravity (U) [Rel density] 1.017 1.001-1.03 0 [facility] Squamous epithelial cells de tection in urine sediment by light microscopyOrdered By: Celia Ramos on 04-08-2023 Epithelial cells.squamous LM Ql (Urine sed) 0-1 [HPF] 0-2 [facility] Transferrin [Mass/volume] in Serum or PlasmaOrdered By: Celia Ramos on 04-08-2023 Transferrin [Mass/Vol] 264 mg/dL 203-362 [facility] Triglyceride [Mass/volume] i n Serum or PlasmaOrdered By: Teo Stokes on 04-08-2023 Triglyceride [Mass/Vol] 131 mg/dL 0-149 [facility] Comment on above: TRIG ATP III CLASSIF ICATIONTRIG less than 150 mg/dL NormalTRIG 150-199 mg/dL Borderline highTRIG 200-500 mg/dL High TRIG greater than 500 mg/dL Very highStandard traceable to the Center for Disease Conrtrol and Prevention (CDC) test method. Urate [Mass/volume] in Serum or PlasmaOrdered By: Celia Ramos on 04-08-2023 Urate [Mass/Vol] 6.0 mg/dL 4.4-7.6 [facility] Urea nitrogen [Mass/volume] in Serum or PlasmaOrdered By: Celia Ramos on 04-08-2023 Urea nitrogen [Mass/Vol] 27 mg/dL 7-25 [facility] Uric Acidon 04-08-2023 Urate [Mass/Vol] 6.0 mg/dL Normal 4.4-7.6 [facility] Comment on above: Order Comment: Reaso n for Exam Acute kidney injury;Chronic kidney disease, stage 3b;Bilater Performed By: #### V [id number], MANDI, B12, MG, PHOS, CMP, FOL, FE and TIBC, URIC #### [facility] [address] Urine Cultureon 04-08-2023 Bacteria identified Cx Nom (U) ORGANISM: Klebsiella oxytoca (O:KLEOXY) [place] Count >100,000 ORGANISM: Morganella morganii (O:MORMOR) [place] Count >100,000 Aerobic RITESH Charge (NMIC56) SUSCEPTIBILITY [...] RESISTANT TO ALL B-LACTAM DRUGS. PERFORMED BY: [place] [address] PATHOLOGIST CONTRACTOR BUYER OREN OWEN M.D. [facility] Comment on above: Performed By: #### V [id number], MANDI, B12, MG, PHOS, CMP, FOL, FE and TIBC, URIC #### [facility] [address] [place] [address] Urine bacteria detection by automated methodOrdered By: Celia Ramos on 04-08-2023 Bacteria Auto Ql (U) 4+ None Seen [facility] Urine clarity by refractomet ry automatedOrdered By: Celia Ramos on 04-08-2023 Clarity Refractometry automated (U) Cloudy Clear [facility] Urine glucose measurement by automated test strip (mass/volume)Ordered By: Celia Ramos on 04-08-2023 Glucose Auto test strip (U) [Mass/Vol] Normal mg/dL Normal [facility] Urine hemoglobin detection b y automated test stripOrdered By: Celia Ramos on 04-08-2023 Hemoglobin Auto test strip Ql (U) 1+ Negative [facility] Urine leukocyte esterase det ection by automated test stripOrdered By: Celia Ramos on 04-08-2023 Leukocyte esterase Auto test strip Ql (U) 4+ Negative [facility] Urine protein/creatinine rat ioOrdered By: Celia Ramos on 04-08-2023 Protein/Creatinine (U) [Ratio] 333 mg/g{Cre} 0-200 [facility] Urobilinogen Auto test strip (U) [Mass/Vol]Ordered By: Celia Ramos on 04-08-2023 Urobilinogen (U) [Mass/Vol] Normal mg/dL Normal [facility] Vitamin B12on 04-08-2023 Cobalamin (Vitamin B12) [Mass/Vol] 301 pg/mL Normal 180-914 [facility] Comment on above: Order Comment: Reaso n for Exam Acute kidney injury;Chronic kidney disease, stage 3b;Bilater Performed By: #### V [id number], MANDI, B12, MG, PHOS, CMP, FOL, FE and TIBC, URIC #### [facility] [address] Vitamin B12 ser/plasOrdered By: Celia Ramos on 04-08-2023 Cobalamin (Vitamin B12) [Mass/Vol] 301 pg/mL 180-914 [facility] Vitamin D 25 Hydroxy Totalon 04-08-2023 Vitamin D 25 Hydroxy Total 37.5 ng/mL Normal 30-100 [facility] Comment on above: Order Comment: Reaso n for Exam Acute kidney injury;Chronic kidney disease, stage 3b;Bilater Result Comment: [place] MIN D STATUS 25([place])VITAMIN D RANGE (ng/mL) Deficient <20 Insufficient 20 to <30 Sufficient 30 to 100 Reference: Sixto MF,Federico NC, Palomo LESLIE, et al. Evaluation,treatment, and prevention of vitamin D deficiency; an Endocrine Society clinical practice guideline. JCEM. 2010; 96(7):1911-30. PERFORMED BY: [facility] [address] [place] [address] PATHOLOGIST CONTRACTOR BUYER OREN OWEN M.D. Performed By: #### V [id number], MANDI, B12, MG, PHOS, CMP, FOL, FE and TIBC, URIC #### [facility] [address] Vitamin D+Metabolites [Mass/ volume] in Serum or PlasmaOrdered By: Celia Ramos on 04-08-2023 Vitamin D+Metabolites [Mass/Vol] 37.5 ng/mL 30-100 [facility] Comment on above: VITAMIN D STATUS 25( [place])VITAMIN D RANGE (ng/mL) Deficient <20 Insufficient 20 to <30Sufficient 30 to 100Reference: Sixto MF,Federico MATA, Palomo LESLIE, et al. Evaluation,treatment, and prevention of vitamin D deficiency; an Endocrine Society clinical practice guideline. JCEM. 2010; 96(7):1911-30. pH Auto test strip (U)Ordere d By: Celia Ramos on 04-08-2023 pH (U) 7.0 [pH] 5.0-9.0 [facility] UroVysion Fish and Urine Cyt o ([facility])on 03-18-2023 [facility] Diagnosis Info Invalid Interpretation Code [facility] Comment on above: Result Comment: A:Ur [...] correlated with cytology and cystoscopy results.* CPT 53358, 34132. 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 Electronically signed by : on: 03/18/2023 13:35:55 Performed By: #### 1 [id number] #### [facility] [address] [place] [address] Consent for Procedure/Surger yon 03-12-2023 Consent for Procedure/Surgery [id number] Normal [facility] Ambulatory Visit Summaryon 1 Ambulatory Visit [...] with ARLENE CASILLAS, Katia Hall, ADRIA When: In 3 months Comments: Sched cysto/FISH/Cytol/BT check Where: [facility] [address], [place] [address]- Medications What How Much When Instructions Unchanged [...] kidney and (more content not included)... Normal [facility] Patient Educationon 03-11-20 23 Patient Education [...] including vitamins, herbs, eye drops, creams, and poex-caf-yfuxhhw medicines. ? Any problems you or family [...] tells you to take them. ? Taking lekb-gpk-tydhyiy medicines, vitamins, herbs, and supplements. Surgery safety [...] health care (more content not included)... Normal [facility] UroVysion Fish and Urine Cyt o ([facility])on 03-11-2023 [facility] Method of Extraction Bladder Urine Normal [facility] Comment on above: Performed By: #### 1 [id number] #### [facility] [address] [place] [address] [facility] Number of Jars 1 Invalid Interpretation Code [facility] Comment on above: Performed By: #### 1 [id number] #### [facility] [address] [place] [address] [facility] Specimen Bladder Wash Normal [facility] Comment on above: Performed By: #### 1 [id number] #### [facility] [address] [place] [address] [facility] Type of Service Technical Only Normal [facility] Comment on above: Performed By: #### 1 [id number] #### [facility] [address] [place] [address] Urology Office/Clinic Noteon 03-11-2023 Urology Office/Clinic Note [...] of urine, unspecified) Pt presented to [facility] ER on 09/15/22 due to catheter [...] [facility] [address], [place] [address]- Additional Instructions: Sched cysto/FISH/Cytol/BT check Patient Education Benign Prostatic Hyperplasia I, Dalila Lala , personally scribed for Dr. Samuels on 03/11/2023 14:20:53. Electronically signed by emma Lala on (more content not included)... Normal [facility] Comment on above: Result Comment: Elec tronically Signed By: Katia SAMUELS MD\.br\Date and Time Signed: 03/11/23 14:23 EDT\.br\Electronically Co-Signed By: Dalila Lala\Date and Time Co-Signed: 03/11/23 14:21 EDT Office [...] Lipid Panel; Status:Active - Retrospective Authorization; Requested for:[id number]; Overweight with body mass index (BMI) of 27 to 27.9 in adult Healthy Weight Tips; Status:Complete - Retrospective Authorization; Done: [id number] Some eating tips that can help you lose weight.; Status:Complete - Retrospective Authorization; Done: [id number] SocHx: Current smoker Start: Aspirin 81 MG Oral Tablet Delayed Release; TAKE 1 TABLET DAILY Tobacco Use Screening; Status:Complete; Done: [id number] You need to stop smoking. Though it is not easy, more than half of all adult smokers have quit. We encourage you to write down all the reasons you should quit smoking and set a quit date for yourself. Ask us how we can help. You may also call 6-751-OQUGNOW for free resources and assistance.; Status:Complete - Retrospective Authorization; Done: [id number] Tobacco Use Screening; Status:Complete; Done: [id number] Patient Instructions Please bring all medicines, vitamins, [...] negative for complaint. Vitals Vital Signs Recorded: [id number] 09:57AM Heart Rate72, L Radial Ffecjmnr305, LUE, Sitting Kxpvxpuyy46, LUE, Sitting Height6 ft 2 in Oiwmsn014 lb BMI Fvzpfuohua80.35 kg/m2 BSA Calculat (more content not included)... Normal [place] Tobacco Screening.on 023 Fall risk assessment a) No falls within the last year [facility] ADVIZE 250 DO Work Phone: Tobacco use status [facility] a) Yes [facility] ADVIZE 250 DO Work Phone: Tobacco Screening. Yes [facility] PayOrPassy 250 DO Work Phone: IntraOperative Documentson 0 01-13-2023 IntraOper[facility] Documents [id number]#1.00CD:127 [facility] Consent for Procedure/Surger yon 01-07-2023 Consent for Procedure/Surgery [id number]:127 [facility] IntraOperative Documentson 0 01-07-2023 Intra[facility] Documents [id number]#1.00CD:127 [facility] Consent for Treatmenton Consent for Treatment [id number]#1.00CD:127 Normal [facility] UroVysion Fish and Urine Cyt o ([facility])on 12-17-2022 [facility] Diagnosis Info Invalid Interpretation Code [facility] Comment on above: Result Comment: A:Ur [...] correlated with cytology and cystoscopy results.* CPT 79721, 95736. Microscopic Notes - Microscopic Notes - Abnormal cells 9p21 deletions: Abnormal cells aneploid events: Total cells analyzed: 101 Hematuria: Gross Description Site ID:A color No Color fixative Alcohol Received 60 mls of clear no color fluid with the patient's name and, Urine on the vial. Electronically signed by : on: 12/17/2022 09:12:29 Performed By: #### 1 [id number] ####[facility] [address] [place] [address] Urology Office/Clinic Noteon 12-16-2022 Urology Office/Clinic Note [...] of urine, unspecified) Pt presented to [facility] ER on 09/15/22 due to catheter [...] [facility] [address], [place] [address]- Additional Instructions: Follow up after urodynamics for [...] emphysema Dem (more content not included)... Normal [facility] Comment on above: Result Comment: Elec tronically Signed By: Dana Rivas\Date and Time Signed: 12/16/22 11:30 EDT Consent for Procedure/Surger yon 12-11-2022 Consent for Procedure/Surgery [id number]:127 Normal [facility] Ambulatory Visit Summaryon 0 12-10-2022 Ambulatory [...] URL When: Where: [facility] [address], [place] [address]- Medications What How Much When Instructions Unchanged [...] with r (more content not included)... Normal [facility] Patient Educationon 12-11-19 23 Patient Education Oncology Cancer Screening for Men [...] if anything looks unusual. Men with a nfijjq-ksvh-pchxyv risk for skin cancer may want to see a skin drier (associate merchant) for an annual body check. What are the benefits of screening? Cancer screening is done to look for cancer in the very early stages, before it spreads and becomes harder to treat and before you would start to notice symptoms. Finding cancer early improves the chances of successful treatment. It ma (more content not included)... Normal [facility] UroVysion Fish and Urine Cyt o ([facility])on 12-10-2022 [facility] Method of Extraction Bladder Wash Normal [facility] Comment on above: Performed By: #### 1 [id number] ####[facility] [address] [place] [address] [facility] Number of Jars 1 Invalid Interpretation Code [facility] Comment on above: Performed By: #### 1 [id number] ####[facility] [address] [place] [address] [facility] Specimen Urine Normal [facility] Comment on above: Performed By: #### 1 [id number] ####[facility] [address] [place] [address] [facility] Type of Service Technical Only Normal [facility] Comment on above: Performed By: #### 1 [id number] ####[facility] [address] [place] [address] CULTURE URINEon 09-18-2022 CULTURE URINE Isolate 1 Pseudomonas aeruginosa >100,000 cfu/mL of ORGANISM 1 Pseudomonas aeruginosa ANTIBIOTIC M.I.C RX STATUS Piperacillin/Tazobactam <=4 S F Ceftazidime <=1 S F Imipenem 2 S F Amikacin <=2 S F Gentamicin 2 S F Tobramycin <=1 S F Ciprofloxacin <=0.25 S F Levofloxacin <=0.12 S F Normal [facility] Comment on above: Performed By: #### U RTPCR #### [facility] [address] [place] [address] Dr. Karen Pierce CALCULI, URINARYon 3 2,8 Dihydroxyadenine Normal [facility] Comment on above: Performed By: #### U A #### [facility] [address] [place] [address] Dr. Karen Pierce Ammonium Acid Urate Normal [facility] Comment on above: Performed By: #### U A #### [facility] Laboratory [address] [place] [address] Dr. Karen Pierce Bilirubin Ql (U) Normal [facility] Comment on above: Performed By: #### U A #### [facility] [address] [address] [address] Karen Pierce Ca Oxalate Dihydrate Normal [facility] Comment on above: Performed By: #### U A #### [facility] [address] [address] [address] Karen Pierce CaHPO4 (Brushite) [facility] Comment on above: Performed By: #### U A #### [facility] [address] [address] [address] Karen Pierce Calcium Bilirubinate [facility] Comment on above: Performed By: #### U A #### [facility] [address] [address] [address] Karen Pierce Calcium Carbonate [facility] Comment on above: Performed By: #### U A #### [facility] [address] [place] [address] Dr. Karen Pierce Calcium Oxalate Monohydrate 100 % [facility] Comment on above: Performed By: #### U A #### [facility] [address] [address] [address] Karen Pierce Calcium Palmitate Normal [facility] Comment on above: Performed By: #### U A #### [facility] [address] [place] [address] Dr. Karen Pierce Calcium Phosphate Normal [facility] Comment on above: Performed By: #### U A #### [facility] [address] [address] [address] Karen Pierce Calcium Stearate Normal [facility] Comment on above: Performed By: #### U A #### [facility] [address] [address] [address] Karen Pierce Carbonate Apatite [place] [facility] Comment on above: Performed By: #### U A #### [facility] [address] [place] [address] Dr. Karen Pierce Cellular Material [facility] Comment on above: Performed By: #### U A #### [facility] [address] [address] [address] Karen Pierce Cholesterol [facility] Comment on above: Performed By: #### U A #### [facility] [address] [address] [address] Karen Pierce Color (U) Brown Normal [facility] Comment on above: Performed By: #### U A #### [facility] [address] [address] [address] Karen Pierce Comment Normal [facility] Comment on above: Performed By: #### U A #### [facility] [address] [address] [address] Karen Pierce Comment: Comment Normal [facility] Comment on above: Result Comment: Hyacinth rhodes questions regarding Calculi Analysis contact [employer] at: [phone]. Performed By: #### U A #### [facility] [address] [place] [address] Dr. Karen Pierce Composition Comment [facility] Comment on above: Result Comment: Perc entage (Represents the % composition) Performed By: #### U A #### [facility] [address] [place] [address] Dr. Karen Pierce Cystine Normal [facility] Comment on above: Performed By: #### U A #### [facility] [address] [place] [address] Dr. Karen Pierce Disclaimer: Comment [facility] Comment on above: Result Comment: This test was developed and its performance characteristics determined by [facility]. It has not been cleared or approved by the Food and Drug Administration. Performed By: #### U A #### [facility] [address] [place] [address] Dr. Kraen Pierce Dried Blood [facility] Comment on above: Performed By: #### U A #### [facility] [address] [place] [address] Dr. Karen Pierce Drug or Metabolite Normal [facility] Comment on above: Performed By: #### U A #### [facility] [address] [place] [address] Dr. Karen Pierce Hydroxyapatite [facility] Comment on above: Performed By: #### U A #### [facility] [address] [address] [address] Karen Pierce Mg NH4 PO4 (Struvite) [facility] Comment on above: Performed By: #### U A #### [facility] [address] [place] [address] Dr. Karen Pierce MgHPO4 (Newberyite) [facility] Comment on above: Performed By: #### U A #### [facility] [address] [address] [address] Karen Pierce Other component(s) [facility] Comment on above: Performed By: #### U A #### [facility] [address] [place] [address] Dr. Karen Pierce PDF . [facility] Comment on above: Performed By: #### U A #### [facility] [address] [place] [address] Dr. Karen Pierce Photo Comment [facility] Comment on above: Result Comment: Phot ograph will follow under a separate cover Performed By: #### U A #### [facility] [address] [place] [address] Dr. Karen Pierce Please note: Comment [facility] Comment on above: Result Comment: Calc shirley report will follow via computer, mail or computer systems integrator delivery. Performed By: #### U A #### [facility] [address] [place] [address] Dr. Karen Pierce Size 5x5 [facility] Comment on above: Result Comment: Mult iple pieces received. Dimensions of the largest piece reported. Performed By: #### U A #### [facility] [address] [place] [address] Dr. Karen Pierce Sodium Acid Urate [facility] Comment on above: Performed By: #### U A #### [facility] [address] [place] [address] Dr. Karen Pierce Source Comment [facility] Comment on above: Result Comment: Urin evelin Bladder Performed By: #### U A #### [facility] [address] [address] [address] Karen Pierce Triamterene [facility] Comment on above: Performed By: #### U A #### [facility] [address] [address] [address] Karen Pierce Uric Acid [facility] Comment on above: Performed By: #### U A #### [facility] [address] [address] [address] Karen Pierce Uric Acid Dihydrate [facility] Comment on above: Performed By: #### U A #### [facility] [address] [place] [address] Dr. Karen Pierce Weight 158 mg [facility] Comment on above: Performed By: #### U A #### [facility] [address] [place] [address] Dr. Karen Pierce Xanthine [facility] Comment on above: Performed By: #### U A #### [facility] [address] [place] [address] Dr. Karen Pierce ER URINE PROFILEon 3 Bilirubin Ql (U) Negative Normal NEGATIVE [facility] Comment on above: Performed By: #### U MICRO, ERUR #### [facility] [address] [place] [address] Dr. Karen Pierce Clarity (U) CLEAR Normal CLEAR [facility] Comment on above: Performed By: #### U MICRO, ERUR #### [facility] [address] [place] [address] Dr. Karen Pierce Color (U) YELLOW Normal YELLOW [facility] Comment on above: Performed By: #### U MICRO, ERUR #### [facility] [address] [place] [address] Dr. Karen Pierce ERUAHD A micrscopic examina tion will be performed if indicated. Normal [facility] Comment on above: Performed By: #### U MICRO, ERUR #### [facility] [address] [place] [address] Dr. Karen Pierce Glucose Ql (U) Negative Normal NEGATIVE [facility] Comment on above: Performed By: #### U MICRO, ERUR #### [facility] [address] [address] [address] Karen Pierce Hemoglobin Ql (U) LARGE Abnormal NEGATIVE [facility] Comment on above: Performed By: #### U MICRO, ERUR #### [facility] [address] [address] [address] Karen Pierce Ketones Ql (U) Negative Normal NEGATIVE [facility] Comment on above: Performed By: #### U MICRO, ERUR #### [facility] [address] [address] [address] Karen Pierce LEUKOCYTES LARGE Abnormal NEGATIVE [facility] Comment on above: Performed By: #### U MICRO, ERUR #### [facility] [address] [place] [address] Dr. Karen Pierce Nitrite Ql (U) Positive Abnormal NEGATIVE [facility] Comment on above: Performed By: #### U MICRO, ERUR #### [facility] [address] [address] [address] Karen Pierce pH (U) 5.5 [pH] Normal 5-9 [facility] Comment on above: Performed By: #### U MICRO, ERUR #### [facility] [address] [place] [address] Dr. Karen Pierce Protein (U) [Mass/Vol] 100 mg/dL Abnormal NEGAT RAJI/ TRACE [facility] Comment on above: Performed By: #### U MICRO, ERUR #### [facility] [address] [address] [address] Karen Pierce SPEC GRAVITY 1.020 Normal 1.005-<=1. 025 [facility] Comment on above: Performed By: #### U MICRO, ERUR #### [facility] [address] [place] [address] Dr. Karen Pierce UR MICRO IND INDICATED Normal [facility] Comment on above: Performed By: #### U MICRO, ERUR #### [facility] [address] [address] [address] Karen Pierce Urobilinogen Qn (U) 1.0 {Tonio'U}/dL Normal 0.2 - 1. 0 [facility] Comment on above: Performed By: #### U MICRO, ERUR #### [facility] [address] [place] [address] Dr. Karen Pierce URINE MICROSCOPIC ONLYon BACTERIA SMALL Abnormal NONE SEEN [facility] Comment on above: Performed By: #### U MICRO, ERUR #### [facility] [address] [place] [address] Dr. Karen Pierce Bacteria identified Cx Nom (U) INDICATED Normal [facility] Comment on above: Performed By: #### U MICRO, ERUR #### [facility] [address] [place] [address] Dr. Karen Pierce CAST NONE SEEN Normal NONE SEEN [facility] Comment on above: Performed By: #### U MICRO, ERUR #### [facility] [address] [place] [address] Dr. Karen Pierce Crystals LM Nom (Urine sed) NONE SEEN Normal NONE SEEN [facility] Comment on above: Performed By: #### U MICRO, ERUR #### [facility] [address] [place] [address] Dr. Karen Pierce Epithelial cells LM Ql (Urine sed) NONE SEEN Normal NONE SEEN /RARE [facility] Comment on above: Performed By: #### U MICRO, ERUR #### [facility] [address] [place] [address] Dr. Karen Pierce MUCOUS NONE SEEN Normal NONE SEEN [facility] Comment on above: Performed By: #### U MICRO, ERUR #### [facility] [address] [place] [address] Dr. Karen Pierce RBC (U) [#/Vol] /uL Abnormal 0-2 [facility] Comment on above: Performed By: #### U MICRO, ERUR #### [facility] [address] [place] [address] Dr. Karen Pierce WBC 50-75 Abnormal NONE SEEN [facility] Comment on above: Performed By: #### U MICRO, ERUR #### [facility] [address] [place] [address] Dr. Karen Pierce PTH INTACTon 09-05-2022 PTH, Intact 38 pg/mL Normal 15-65 [facility] Comment on above: Performed By: #### P THINT #### [facility] [address] [place] [address] Dr. Karen Pierce FERRITINon 09-04-2022 Ferritin [Mass/Vol] 49.0 ng/mL Normal 26.0-388.0 [facility] Comment on above: Performed By: #### U RTPCR #### [facility] [address] [place] [address] Dr. Karen Peirce IRON AND TIBCon 09-04-2022 % SATURATION 10.3 % Normal [facility] Comment on above: Performed By: #### U RTPCR #### [facility] [address] [place] [address] Dr. Karen Pierce Iron [Mass/Vol] 33.0 ug/dL Critically low 65.0-175.0 [facility] Comment on above: Performed By: #### U RTPCR #### [facility] [address] [place] [address] Dr. Karen Pierce TIBC DIRECT 319.0 ug/dL Normal 250.0-450. 0 [facility] Comment on above: Performed By: #### U RTPCR #### [facility] [address] [place] [address] Dr. Karen Pierce UA RANDOMon 09-04-2022 Bilirubin Ql (U) Negative Normal NEGATIVE [facility] Comment on above: Performed By: #### U A #### [facility] [address] [place] [address] Dr. Karen Pierce Clarity (U) CLEAR Normal CLEAR [facility] Comment on above: Performed By: #### U A #### [facility] [address] [place] [address] Dr. Karen Pierce Color (U) LT. YELLOW Normal YELLOW [facility] Comment on above: Performed By: #### U A #### [facility] [address] [place] [address] Dr. Karen Pierce Glucose Ql (U) Negative Normal NEGATIVE [facility] Comment on above: Performed By: #### U A #### [facility] [address] [place] [address] Dr. Karen Pierce Hemoglobin Ql (U) MODERATE Abnormal NEGATIVE [facility] Comment on above: Performed By: #### U A #### [facility] [address] [place] [address] Dr. Karen Pierce Ketones Ql (U) Negative Normal NEGATIVE [facility] Comment on above: Performed By: #### U A #### [facility] [address] [place] [address] Dr. Karen Pierce LEUKOCYTES LARGE Abnormal NEGATIVE [facility] Comment on above: Performed By: #### U A #### [facility] [address] [place] [address] Dr. Karen Pierce Nitrite Ql (U) Positive Abnormal NEGATIVE [facility] Comment on above: Performed By: #### U A #### [facility] [address] [place] [address] Dr. Karen Pierce pH (U) 6.5 [pH] Normal 5-9 [facility] Comment on above: Performed By: #### U A #### [facility] [address] [place] [address] Dr. Karen Pierce SPEC GRAVITY 1.015 Normal 1.005-<=1. 025 [facility] Comment on above: Performed By: #### U A #### [facility] [address] [place] [address] Dr. Karen Pierce UA PROTEIN 30 mg/dl Abnormal NEGATIVE/ TRACE [facility] Comment on above: Performed By: #### U A #### [facility] [address] [place] [address] Dr. Karen Pierce Urobilinogen Qn (U) 0.2 {Tonio'U}/dL Normal 0.2 - 1. 0 [facility] Comment on above: Performed By: #### U A #### [facility] [address] [place] [address] Dr. Karen Pierce URINE T PROTEIN CREAT RATIOo n 09-04-2022 Protein (U) [Mass/Vol] 65.2 mg/dL Critically high <=12.0 [facility] Comment on above: Performed By: #### U RTPCR #### [facility] [address] [place] [address] Dr. Karen Pierce UR PROT CREAT RAT 0.76 Normal [facility] Comment on above: Performed By: #### U RTPCR #### [facility] [address] [place] [address] Dr. Karen Pierce URINE CREAT 85.95 mg/dL Normal 20.00-300. 00 [facility] Comment on above: Performed By: #### U RTPCR #### [facility] [address] [place] [address] Dr. Karen Pierce VIT B12 AND FOLATEon 2022 Cobalamin (Vitamin B12) [Mass/Vol] 279.0 pg/mL Normal 193.0-986. 0 [facility] Comment on above: Performed By: #### U RTPCR #### [facility] [address] [place] [address] Dr. Karen Pierce FOLATE 17.80 ng/mL Normal 8.60-58.90 [facility] Comment on above: Performed By: #### U RTPCR #### [facility] [address] [place] [address] Dr. Karen Pierce VITAMIN D 25 OHon 09-04-2022 VIT D 25-OH 29.9 ng/mL Normal [facility] Comment on above: Performed By: #### U RTPCR #### [facility] [address] [place] [address] Dr. Karen Pierce VIT D RANGES SEE BELOW Normal [facility] Comment on above: Result Comment: <20 ng/mL Vit D deficient 20 - <30 ng/mL Vit D insufficient 30 - 100 ng/mL Vit D sufficient >100 ng/mL Potential Toxicity Performed By: #### U RTPCR #### [facility] [address] [place] [address] Dr. Karen Pierce CBC AUTO DIFFon 09-02-2022 BASO # 0.1 103/ul Normal 0.0-0.1 [facility] Comment on above: Performed By: #### C BC #### [facility] [address] [place] [address] Dr. Karen Pierce Basophils/100 WBC (Bld) 0.7 % Normal 0.2-2.0 [facility] Comment on above: Performed By: #### C BC #### [facility] [address] [place] [address] Dr. Karen Pierce EO # 0.2 103/ul Normal 0.0-0.7 [facility] Comment on above: Performed By: #### C BC #### [facility] [address] [place] [address] Dr. Karen Pierce Eosinophils/100 WBC (Bld) 2.6 % Normal 0.9-7.0 [facility] Comment on above: Performed By: #### C BC #### [facility] [address] [place] [address] Dr. Karen Pierce Erythrocyte distribution width (RBC) [Ratio] 13.8 % Normal 11.0-15.0 [facility] Comment on above: Performed By: #### C BC #### [facility] [address] [place] [address] Dr. Karen Pierce Hematocrit (Bld) [Volume fraction] 38.9 % Critically low 42.0-54.0 [facility] Comment on above: Performed By: #### C BC #### [facility] [address] [place] [address] Dr. Karen Pierce Hemoglobin (Bld) [Mass/Vol] 12.3 g/dL Critically low 14.0-18.0 [facility] Comment on above: Performed By: #### C BC #### [facility] [address] [place] [address] Dr. Karen Pierce IG # 0.01 10e3/ul Normal 0.00-0.03 [facility] Comment on above: Performed By: #### C BC #### [facility] [address] [place] [address] Dr. Karen Pierce IG % 0.1 % Normal 0.0-0.5 [facility] Comment on above: Performed By: #### C BC #### [facility] [address] [place] [address] Dr. Karen Pierce LYMPH # 1.9 103/ul Normal 1.2-3.8 [facility] Comment on above: Performed By: #### C BC #### [facility] [address] [place] [address] Dr. Karen Pierce Lymphocytes/100 WBC (Bld) 27.0 % Normal 20.5-60.0 [facility] Comment on above: Performed By: #### C BC #### [facility] [address] [place] [address] Dr. Karen Pierce MANUAL DIFF REQ NO Normal [facility] Comment on above: Performed By: #### C BC #### [facility] [address] [place] [address] Dr. Karen Pierce MCH (RBC) [Entitic mass] 27.8 pg Normal 25.9-34.0 [facility] Comment on above: Performed By: #### C BC #### [facility] [address] [place] [address] Dr. Karen Pierce MCHC (RBC) [Mass/Vol] 31.6 g/dL Normal 29.9-35.2 [facility] Comment on above: Performed By: #### C BC #### [facility] [address] [place] [address] Dr. Karen Pierce MCV (RBC) [Entitic vol] 87.8 fL Normal 80.0-94.0 [facility] Comment on above: Performed By: #### C BC #### [facility] [address] [place] [address] Dr. Karen Pierce MONO # 0.6 103/ul Normal 0.3-0.8 [facility] Comment on above: Performed By: #### C BC #### [facility] [address] [place] [address] Dr. Karen Pierce Monocytes/100 WBC (Bld) 8.8 % Normal 1.7-12.0 [facility] Comment on above: Performed By: #### C BC #### [facility] [address] [place] [address] Dr. Karen Pierce NEUT # 4.4 103/ul Normal 1.4-6.5 [facility] Comment on above: Performed By: #### C BC #### [facility] [address] [place] [address] Dr. Karen Pierce Neutrophils/100 WBC (Bld) 60.8 % Normal 43.0-75.0 [facility] Comment on above: Performed By: #### C BC #### [facility] [address] [place] [address] Dr. Karen Pierce Platelet mean volume (Bld) [Entitic vol] 9.9 fL Normal 9.5-13.5 [facility] Comment on above: Performed By: #### C BC #### [facility] [address] [place] [address] Dr. Karen Pierce PLT 181 103/ul Normal 150-450 [facility] Comment on above: Performed By: #### C BC #### [facility] [address] [place] [address] Dr. Karen Pierce RBC 4.43 106/ul Critically low 4.70-6.10 [facility] Comment on above: Performed By: #### C BC #### [facility] [address] [place] [address] Dr. Karen Pierce WBC 7.2 103/ul Normal 4.0-11.0 [facility] Comment on above: Performed By: #### C BC #### [facility] [address] [place] [address] Dr. Karen Pierce MAGNESIUMon 09-02-2022 Magnesium [Mass/Vol] 2.2 mg/dL Normal 1.8-2.4 [facility] Comment on above: Performed By: #### U A #### [facility] [address] [place] [address] Dr. Karen Pierce PHOSPHORUSon 09-02-2022 Phosphate [Mass/Vol] 2.9 mg/dL Normal 2.6-4.7 [facility] Comment on above: Performed By: #### U A #### [facility] [address] [place] [address] Dr. Karen Pierce PROF 14(COMP METB)on 023 Albumin [Mass/Vol] 3.5 g/dL Normal 3.4-5.0 [facility] Comment on above: Performed By: #### P THINT #### [facility] [address] [place] [address] Dr. Karen Pierce Albumin/Globulin [Mass ratio] 1.0 {ratio} Normal [facility] Comment on above: Performed By: #### P THINT #### [facility] [address] [place] [address] Dr. Karen Pierce ALP [Catalytic activity/Vol] 86 U/L Normal 46-116 [facility] Comment on above: Performed By: #### P THINT #### [facility] [address] [place] [address] Dr. Karen Pierce ALT [Catalytic activity/Vol] 17 U/L Normal 16-63 [facility] Comment on above: Performed By: #### P THINT #### [facility] [address] [place] [address] Dr. Karen Pierce Anion gap [Moles/Vol] 13.0 mmol/L Normal [facility] Comment on above: Performed By: #### P THINT #### [facility] [address] [place] [address] Dr. Karen Pierce AST [Catalytic activity/Vol] 14 U/L Critically low 15-37 [facility] Comment on above: Performed By: #### P THINT #### [facility] [address] [place] [address] Dr. Karen Pierce Bilirubin [Mass/Vol] 0.3 mg/dL Normal 0.2-1.0 [facility] Comment on above: Performed By: #### P THINT #### [facility] [address] [place] [address] Dr. Karen Pierce CO2 [Moles/Vol] 27.6 mmol/L Normal 21.0-32.0 [facility] Comment on above: Performed By: #### P THINT #### [facility] [address] [place] [address] Dr. Karen Pierce Creatinine [Mass/Vol] 1.48 mg/dL Critically high 0.70-1.30 [facility] Comment on above: Performed By: #### P THINT #### [facility] [address] [place] [address] Dr. Karen Pierce EGFR-AF SUDANESE 56 mL/min/1.73m2 Critically low >=60 [facility] Comment on above: Performed By: #### P THINT #### [facility] [address] [place] [address] Dr. Karen Pierce EGFR-NON AF SUDANESE 46 mL/min/1.73m2 Critically low >=60 [facility] Comment on above: Performed By: #### P THINT #### [facility] [address] [place] [address] Dr. Karen Pierce Globulin (S) [Mass/Vol] 3.6 g/dL Normal T [facility] Comment on above: Performed By: #### P THINT #### [facility] [address] [place] [address] Dr. Karen Pierce Glucose [Mass/Vol] 105 mg/dL Normal 74-106 [facility] Comment on above: Performed By: #### P THINT #### [facility] [address] [place] [address] Dr. Karen Pierce Protein [Mass/Vol] 7.1 g/dL Normal 6.4-8.2 [facility] Comment on above: Performed By: #### P THINT #### [facility] [address] [place] [address] Dr. Karen Pierce Sodium [Moles/Vol] 142 mmol/L Normal 136-145 [facility] Comment on above: Performed By: #### P THINT #### [facility] [facility] [address] [place] [address] Dr. Karen Pierce Urea nitrogen/Creatinine [Mass ratio] 16.2 mg/mg Normal [facility] Comment on above: Performed By: #### P THINT #### [facility] [address] [place] [address] Dr. Karen Pierce PROF CHEM 8 (BAS METB)on Anion gap [Moles/Vol] 11.1 mmol/L Normal [facility] Comment on above: Performed By: #### U A #### [facility] [address] [place] [address] Dr. Karen Pierce Calcium [Mass/Vol] 8.7 mg/dL Normal 8.5-10.1 [facility] Comment on above: Performed By: #### U A #### [facility] [address] [place] [address] Dr. Karen Pierce Performed By: #### P THINT #### [facility] [address] [place] [address] Dr. Karen Pierce Chloride [Moles/Vol] 106 mmol/L Normal 98-107 [facility] Comment on above: Performed By: #### U A #### [facility] [address] [place] [address] Dr. Karen Pierce Performed By: #### P THINT #### [facility] [address] [place] [address] Dr. Karen Pierce CO2 [Moles/Vol] 28.5 mmol/L Normal 21.0-32.0 [facility] Comment on above: Performed By: #### U A #### [facility] [address] [place] [address] Dr. Karen Pierce Creatinine [Mass/Vol] 1.44 mg/dL Critically high 0.70-1.30 [facility] Comment on above: Performed By: #### U A #### [facility] [address] [place] [address] Dr. Karen Pierce EGFR-AF SUDANESE 58 mL/min/1.73m2 Critically low >=60 [facility] Comment on above: Performed By: #### U A #### [facility] [address] [place] [address] Dr. Karen Pierce EGFR-NON AF SUDANESE 47 mL/min/1.73m2 Critically low >=60 [facility] Comment on above: Performed By: #### U A #### [facility] [address] [place] [address] Dr. Karen Pierce Glucose [Mass/Vol] 104 mg/dL Normal 74-106 [facility] Comment on above: Performed By: #### U A #### [facility] [address] [place] [address] Dr. Karen Pierce Potassium [Moles/Vol] 4.6 mmol/L Normal 3.5-5.1 [facility] Comment on above: Performed By: #### U A #### [facility] [address] [place] [address] Dr. Karen Pierce Performed By: #### P THINT #### [facility] [address] [place] [address] Dr. Karen Pierce Sodium [Moles/Vol] 141 mmol/L Normal 136-145 [facility] Comment on above: Performed By: #### U A #### [facility] [address] [place] [address] Dr. Karen Pierce Urea nitrogen [Mass/Vol] 24.0 mg/dL Critically high 7.0-18.0 [facility] Comment on above: Performed By: #### U A #### [facility] [address] [place] [address] Dr. Karen Pierce Performed By: #### P THINT #### [facility] [address] [place] [address] Dr. Karen Pierce Urea nitrogen/Creatinine [Mass ratio] 16.7 mg/mg Normal [facility] Comment on above: Performed By: #### U A #### [facility] [address] [place] [address] Dr. Karen Pierce PROTIMEon 09-02-2022 INR Coag (PPP) [Relative time] 1.01 {INR} Normal [facility] Comment on above: Performed By: #### P TT, PT #### [facility] [address] [address] [address] Karen Pierce INR GUIDELINES SEE BELOW Normal [facility] Comment on above: Result Comment: EMY RED INR: 2.0 - 3.0 CONDITIONS NOT LISTED BELOW 2.5 - 3.5 FOR PROSTHETIC HEART VALVE REPLACEMENT 2.5 - 3.5 RECURRENT THROMBOSIS Performed By: #### P TT, PT #### [facility] [address] [address] [address] Karen Pierce PT Coag (PPP) [Time] 10.7 s Normal 9.0-11.6 [facility] Comment on above: Performed By: #### P TT, PT #### [facility] [address] [address] [address] Karen Pierce PTTon 09-02-2022 aPTT Coag (Bld) [Time] 28.2 s Normal 22.3-36.2 [facility] Comment on above: Performed By: #### P TT, PT #### [facility] [address] [address] [address] Karen Pierce URIC ACID SERUMon 09-02-2022 Urate [Mass/Vol] 4.8 mg/dL Normal 3.5-7.2 [facility] Comment on above: Performed By: #### P THINT #### [facility] [address] [place] [address] Dr. Karen Pierce Creatinine (Bld) [Mass/Vol]O rdered By: Margarito Valentine on 08-16-2022 Creatinine [Mass/Vol] 1.5 mg/dL 0.6-1.3 [facility] Comment on above: ER/ESD physician is notified/shown all ISTAT results.Critical values may be confirmed by laboratory testing ifdeemed necessary by ER attending doctor. Creatinine (Bld) [Mass/Vol]O rdered By: Heather Schwab on 07-24-2022 Creatinine [Mass/Vol] 1.6 mg/dL 0.6-1.3 [facility] Comment on above: ER/ESD physician is notified/shown all ISTAT results.Critical values may be confirmed by laboratory testing ifdeemed necessary by ER attending doctor. No Panel InformationOrdered By: Heather Schwab on 07-24-2022 POC Estimated GFR 51 [facility] Comment on above: GFR estimated refere nce range: According to KDOQI guidelines, <60 ml/min/1.73m2 is sufficient to diagnose a patient with chronic kidney disease. POC Estimated GFR Non- Amer 42 [facility] Blood activated clotting lacho e by coagulation assayOrdered By: Margarito Valentine on 07-02-2022 ACT Coag (Bld) 215 s 90-139 [facility] Comment on above: Reference Range: 90- 139 (Non-heparinized) Basophils Auto (Bld) [#/Vol] Ordered By: Margarito Valentine on 06-21-2022 Basophils (Bld) [#/Vol] 0.1 10*3/uL 0.0-0.2 [facility] Basophils/100 WBC Auto (Bld) Ordered By: Margarito Valentine on 06-21-2022 Basophils/100 WBC (Bld) 0.9 % . F [facility] Creatinine and Glomerular fi ltration rate.predicted panel (S/P/Bld)Ordered By: Margarito Valentine on 06-21-2022 Creatinine [Mass/Vol] 1.24 mg/dL 0.64-1.27 [facility] Eosinophils Auto (Bld) [#/Vo l]Ordered By: Margarito Valentine on 06-21-2022 Eosinophils (Bld) [#/Vol] 0.2 10*3/uL 0.0-0.45 [facility] Eosinophils/100 WBC Auto (Bl d)Ordered By: Margarito Valentine on 06-21-2022 Eosinophils/100 WBC (Bld) 2.5 % . [facility] Erythrocyte distribution wid th Auto (RBC) [Ratio]Ordered By: Margarito Valentine on 06-21-2022 Erythrocyte distribution width (RBC) [Ratio] 18.0 % 12.0-14.8 [facility] Estimated glomerular filtrat ion rate (GFR) non- AmericanOrdered By: Margarito Valentine on 06-21-2022 GFR/1.73 sq M.predicted among non-blacks MDRD (S/P/Bld) [Vol rate/Area] 56 mL/Min [facility] Hematocrit Auto (Bld) [Volum e fraction]Ordered By: Margarito Valentine on 06-21-2022 Hematocrit (Bld) [Volume fraction] 37.7 % 38.8-50.0 [facility] Hemoglobin [Mass/volume] in BloodOrdered By: Margarito Valentine on 06-21-2022 Hemoglobin (Bld) [Mass/Vol] 12.3 g/dL 13.0-17.0 [facility] Leukocytes [#/volume] correc phil for nucleated erythrocytes in Blood by Automated counOrdered By: Margarito Valentine on 06-21-2022 WBC corrected for nucl RBC Auto (Bld) [#/Vol] 7.1 10*3/uL 4.1-10.5 [facility] Lymphocytes Auto (Bld) [#/Vo l]Ordered By: Margarito Valentine on 06-21-2022 Lymphocytes (Bld) [#/Vol] 1.3 10*3/uL 1.00-4.8 [facility] Lymphocytes/100 WBC Auto (Bl d)Ordered By: Margarito Valentine on 06-21-2022 Lymphocytes/100 WBC (Bld) 18.7 % . [facility] MCH Auto (RBC) [Entitic mass ]Ordered By: Margarito Valentine on 06-21-2022 MCH (RBC) [Entitic mass] 28.2 pg 27.5-35.2 [facility] MCHC Auto (RBC) [Mass/Vol]Or dered By: Margarito Valentine on 06-21-2022 MCHC (RBC) [Mass/Vol] 32.6 g/dL 32.5-35.6 [facility] MCV Auto (RBC) [Entitic vol] Ordered By: Margarito Valentine on 06-21-2022 MCV (RBC) [Entitic vol] 86.5 fL 83.5-101 F [facility] Monocytes Auto (Bld) [#/Vol] Ordered By: Margarito Valentine on 06-21-2022 Monocytes (Bld) [#/Vol] 0.7 10*3/uL 0.0-0.8 [facility] Monocytes/100 WBC Auto (Bld) Ordered By: Margarito Valentine on 06-21-2022 Monocytes/100 WBC (Bld) 10.3 % . F [facility] Neutrophils Auto (Bld) [#/Vo l]Ordered By: Margarito Valentine on 06-21-2022 Neutrophils (Bld) [#/Vol] 4.8 10*3/uL 1.8-7.7 [facility] Neutrophils/100 WBC Auto (Bl d)Ordered By: Margarito Valentine on 06-21-2022 Neutrophils/100 WBC (Bld) 67.6 % . [facility] No Panel InformationOrdered By: Margarito Valentine on 06-21-2022 Estimated GFR () > 60 mL/Min [facility] Comment on above: GFR estimated refere nce range: According to KDOQI guidelines, <60 ml/min/1.73m2 is sufficient to diagnose a patient with chronic kidney disease. Pharmacy Creatinine Clearance (Chem N/A [facility] Nucleated erythrocytes [Pres ence] in Blood by Automated countOrdered By: Margarito Valentine on 06-21-2022 Nucleated RBC Auto Ql (Bld) 0.1 /100{WBC} 0-0.5 [facility] Platelet mean volume Auto (B ld) [Entitic vol]Ordered By: Margarito Valentine on 06-21-2022 Platelet mean volume (Bld) [Entitic vol] 8.2 fL 6.6-10.1 [facility] Platelets Auto (Bld) [#/Vol] Ordered By: Margarito Valentine on 06-21-2022 Platelets (Bld) [#/Vol] 149 10*3/uL 150-450 [facility] RBC Auto (Bld) [#/Vol]Ordere d By: Margarito Valentine on 06-21-2022 RBC (Bld) [#/Vol] 4.36 10*6/uL 3.90-5.60 [facility] Serum or plasma anion gap de terminationOrdered By: Margarito Valentine on 06-21-2022 Anion gap [Moles/Vol] 10.8 mmol/L 6.0-15.0 [facility] Serum or plasma calcium elan urement (mass/volume)Ordered By: Margarito Valentine on 06-21-2022 Calcium [Mass/Vol] 8.8 mg/dL 8.2-10.2 [facility] Serum or plasma chloride herb surement (moles/volume)Ordered By: Margarito Valentine on 06-21-2022 Chloride [Moles/Vol] 107 mmol/L 95-114 [facility] Serum or plasma glucose elan urement (mass/volume)Ordered By: Margarito Valentine on 06-21-2022 Glucose [Mass/Vol] 103 mg/dL 70-100 [facility] Comment on above: ADA recommended refe rence rangeRandom Glucose Reference Range is dependent on time and content of last meal. Glucose of more than 200 mg/dL in a nonstressed, ambulatory subject supports the diagnosis of Diabetes Mellitus. Serum or plasma potassium me asurement (moles/volume)Ordered By: Margarito Valentine on 06-21-2022 Potassium [Moles/Vol] 4.2 mmol/L 3.5-5.1 [facility] Serum or plasma sodium measu rement (moles/volume)Ordered By: Margarito Valentine on 06-21-2022 Sodium [Moles/Vol] 138 mmol/L 136-146 [facility] Serum or plasma total carbon dioxide measurement (moles/volume)Ordered By: Margarito Valentine on 06-21-2022 CO2 [Moles/Vol] 24.4 mmol/L 22.0-30.0 [facility] Serum or plasma urea nitroge n measurement (mass/volume)Ordered By: Margarito Valentine on 06-21-2022 Urea nitrogen [Mass/Vol] 18 mg/dL 9-23 [facility] WBC Auto (Bld) [#/Vol]Ordere d By: Margarito Valentine on 06-21-2022 WBC (Bld) [#/Vol] 7.1 10*3/uL 4.1-10.5 [facility] Office Visit (Cardiology)on 06-03-2022 Follow-up visit [...] Complaint A[place] AND[place] [facility] [place]. 76-year-old white male who I saw [...] Signs Recorded: 03Jun2022 03:38PM Heart Rate71, Apical Lbekyzdo752, LUE, Sitting Wqtbndmdy07, LUE, Sitting Height6 ft 2 in Qpkfqg231 lb BMI Brvnfjzzwy77.45 kg/m2 BSA Calculated2.2 Tobacco Useb) No PHQ-2 [...] , regular (more content not included)... Normal [place] Tobacco Screening.on 023 Adult depression screening assessment No [facility]-Sandu sushil 250 DO Work Phone: Fall risk assessment a) No falls within the last year [facility] [employer] sushil 250 DO Work Phone: Tobacco use status [facility] b) No [facility]-Sandu sushil 250 DO Work Phone: Basophils Auto (Bld) [#/Vol] Ordered By: Bernabe Cr on 05-22-2022 Basophils (Bld) [#/Vol] 0.1 10*3/uL 0.0-0.2 [facility] Basophils/100 WBC Auto (Bld) Ordered By: Bernabe Cr on 05-22-2022 Basophils/100 WBC (Bld) 1.2 % . F [facility] Creatinine and Glomerular fi ltration rate.predicted panel (S/P/Bld)Ordered By: Bernabe Cr on 05-22-2022 Creatinine [Mass/Vol] 1.78 mg/dL 0.64-1.27 [facility] Eosinophils Auto (Bld) [#/Vo l]Ordered By: Bernabe Cr on 05-22-2022 Eosinophils (Bld) [#/Vol] 0.3 10*3/uL 0.0-0.45 [facility] Eosinophils/100 WBC Auto (Bl d)Ordered By: Bernabe Cr on 05-22-2022 Eosinophils/100 WBC (Bld) 3.6 % . [facility] Erythrocyte distribution wid th Auto (RBC) [Ratio]Ordered By: Bernabe Cr on 05-22-2022 Erythrocyte distribution width (RBC) [Ratio] 15.3 % 12.0-14.8 [facility] Estimated glomerular filtrat ion rate (GFR) non- AmericanOrdered By: Bernabe Cr on 05-22-2022 GFR/1.73 sq M.predicted among non-blacks MDRD (S/P/Bld) [Vol rate/Area] 37 mL/Min [facility] Hematocrit Auto (Bld) [Volum e fraction]Ordered By: Bernabe Cr on 05-22-2022 Hematocrit (Bld) [Volume fraction] 36.2 % 38.8-50.0 [facility] Hemoglobin [Mass/volume] in BloodOrdered By: Bernabe Cr on 05-22-2022 Hemoglobin (Bld) [Mass/Vol] 11.7 g/dL 13.0-17.0 [facility] Leukocytes [#/volume] correc phil for nucleated erythrocytes in Blood by Automated counOrdered By: Bernabe Cr on 05-22-2022 WBC corrected for nucl RBC Auto (Bld) [#/Vol] 8.1 10*3/uL 4.1-10.5 [facility] Lymphocytes Auto (Bld) [#/Vo l]Ordered By: Bernabe Cr on 05-22-2022 Lymphocytes (Bld) [#/Vol] 1.4 10*3/uL 1.00-4.8 [facility] Lymphocytes/100 WBC Auto (Bl d)Ordered By: Bernabe Cr on 05-22-2022 Lymphocytes/100 WBC (Bld) 16.9 % . [facility] MCH Auto (RBC) [Entitic mass ]Ordered By: Bernabe Cr on 05-22-2022 MCH (RBC) [Entitic mass] 27.4 pg 27.5-35.2 [facility] MCHC Auto (RBC) [Mass/Vol]Or dered By: Bernabe Cr on 05-22-2022 MCHC (RBC) [Mass/Vol] 32.5 g/dL 32.5-35.6 [facility] MCV Auto (RBC) [Entitic vol] Ordered By: Bernabe Cr on 05-22-2022 MCV (RBC) [Entitic vol] 84.3 fL 83.5-101 F [facility] Monocytes Auto (Bld) [#/Vol] Ordered By: Bernabe Cr on 05-22-2022 Monocytes (Bld) [#/Vol] 0.8 10*3/uL 0.0-0.8 [facility] Monocytes/100 WBC Auto (Bld) Ordered By: Bernabe Cr on 05-22-2022 Monocytes/100 WBC (Bld) 10.1 % . [facility] Neutrophils Auto (Bld) [#/Vo l]Ordered By: Bernabe Cr on 05-22-2022 Neutrophils (Bld) [#/Vol] 5.6 10*3/uL 1.8-7.7 [facility] Neutrophils/100 WBC Auto (Bl d)Ordered By: Bernabe Cr on 05-22-2022 Neutrophils/100 WBC (Bld) 68.2 % . [facility] No Panel InformationOrdered By: Bernabe Cr on 05-22-2022 Estimated GFR () 45 mL/Min [facility] Comment on above: GFR estimated refere nce range: According to KDOQI guidelines, <60 ml/min/1.73m2 is sufficient to diagnose a patient with chronic kidney disease. Pharmacy Creatinine Clearance (Chem 39.77 [facility] Nucleated erythrocytes [Pres ence] in Blood by Automated countOrdered By: Bernabe Cr on 05-22-2022 Nucleated RBC Auto Ql (Bld) 0.1 /100{WBC} 0-0.5 [facility] Platelet mean volume Auto (B ld) [Entitic vol]Ordered By: Bernabe Cr on 05-22-2022 Platelet mean volume (Bld) [Entitic vol] 8.7 fL 6.6-10.1 [facility] Platelets Auto (Bld) [#/Vol] Ordered By: Bernabe Cr on 05-22-2022 Platelets (Bld) [#/Vol] 198 10*3/uL 150-450 [facility] RBC Auto (Bld) [#/Vol]Ordere d By: Bernabe Cr on 05-22-2022 RBC (Bld) [#/Vol] 4.29 10*6/uL 3.90-5.60 [facility] Serum or plasma anion gap de terminationOrdered By: Bernabe Cr on 05-22-2022 Anion gap [Moles/Vol] 13.3 mmol/L 6.0-15.0 [facility] Serum or plasma calcium elan urement (mass/volume)Ordered By: Bernabe Cr on 05-22-2022 Calcium [Mass/Vol] 8.3 mg/dL 8.2-10.2 [facility] Serum or plasma chloride herb surement (moles/volume)Ordered By: Bernabe Cr on 05-22-2022 Chloride [Moles/Vol] 104 mmol/L 95-114 [facility] Serum or plasma glucose elan urement (mass/volume)Ordered By: Bernabe Cr on 05-22-2022 Glucose [Mass/Vol] 180 mg/dL 70-100 [facility] Comment on above: ADA recommended refe rence rangeRandom Glucose Reference Range is dependent on time and content of last meal. Glucose of more than 200 mg/dL in a nonstressed, ambulatory subject supports the diagnosis of Diabetes Mellitus. Serum or plasma potassium me asurement (moles/volume)Ordered By: Bernabe Cr on 05-22-2022 Potassium [Moles/Vol] 3.3 mmol/L 3.5-5.1 [facility] Serum or plasma sodium measu rement (moles/volume)Ordered By: Bernabe Cr on 05-22-2022 Sodium [Moles/Vol] 137 mmol/L 136-146 [facility] Serum or plasma total carbon dioxide measurement (moles/volume)Ordered By: Bernabe Cr on 05-22-2022 CO2 [Moles/Vol] 23.0 mmol/L 22.0-30.0 [facility] Serum or plasma urea nitroge n measurement (mass/volume)Ordered By: Bernabe Cr on 05-22-2022 Urea nitrogen [Mass/Vol] 21 mg/dL 9-23 [facility] WBC Auto (Bld) [#/Vol]Ordere d By: Bernabe Shaye on 05-22-2022 WBC (Bld) [#/Vol] 8.1 10*3/uL 4.1-10.5 [facility] No Panel InformationOrdered By: Bernabe Cr on 05-21-2022 25-Hydroxy Vitamin D Total 15.9 ng/mL 30-100 [facility] Comment on above: VITAMIN D STATUS 25( [place])VITAMIN D RANGE (ng/mL) Deficient <20 Insufficient 20 to <30Sufficient 30 to 100Reference: Sixto MF,Federico NC, Palomo LESLIE, et al. Evaluation,treatment, and prevention of vitamin D deficiency; an Endocrine Society clinical practice guideline. JCEM. 2010; 96(7):1911-30. Vitamin C level 0.2 mg/dL 0.4-2.0 [facility] Comment on above: This test was develo ped and its performance characteristicsdetermined by [employer]. It has not been cleared orapproved by the Food and Drug Administration.Vitamin C deficiency is generally defined as plasma orserum concentrations less than 0.2 mg/dL and levels between0.2 and 0.4 mg/dL are considered low.Performed at: [address] [id number] Director: Mamadou Rodriguez MD, Phone: [phone] Folate [Mass/volume] in Seru m or PlasmaOrdered By: Taz Barnes on 05-20-2022 Folate [Mass/Vol] 5.5 ng/mL >5.9 [facility] Comment on above: Folate reference ran ge: >5.9 ng/mlThe WHO technical consultation on folate and vitamin [id number] has determined that folate concentrations lessthan 4 ng/ml are considered deficient. Laboratory - Chemistry and C hemistry - challengeOrdered By: Taz Barnes on 05-20-2022 Cobalamin (Vitamin B12) [Mass/Vol] 169 pg/mL 180-914 [facility] No Panel InformationOrdered By: Taz Barnes on 05-20-2022 Ova and Parasite Result 1 [facility] Ova and Parasite Result 1 [facility] Ova or parasites identificat ionOrdered By: Taz Barnes on 05-20-2022 Ova and parasites identified LM Nom (Unsp spec) [facility] Ova and parasites identified LM Nom (Unsp spec) [facility] Laboratory - Chemistry and C hemistry - challengeOrdered By: Janice Gonzalez on 05-19-2022 Magnesium [Mass/Vol] 1.7 mg/dL 1.6-2.6 [facility] Automated erythrocytes count in urine sediment (number/area)Ordered By: Taz Barnes on 05-18-2022 RBC Auto (Urine sed) [#/Area] 50-100 [HPF] 0-4 [facility] Automated leukocytes count i n urine sediment (number/area)Ordered By: Taz Barnes on 05-18-2022 WBC Auto (Urine sed) [#/Area] Innumerable [HPF] 0-4 [facility] Automated urine hyaline cast s count (number/volume)Ordered By: Taz Barnes on 05-18-2022 Hyaline casts Auto (U) [#/Vol] None seen [LPF] 0-1 [facility] Bilirubin Test strip Ql (U)O rdered By: Taz Barnes on 05-18-2022 Bilirubin Ql (U) Negative Negative [facility] Casts typing in urine sedime nt by light microscopyOrdered By: Taz Barnes on 05-18-2022 Casts LM Nom (Urine sed) None seen [LPF] None Seen [facility] Color Auto (U)Ordered By: Starr Barnes on 05-18-2022 Color (U) Yellow Yellow [facility] Ketones Auto test strip (U) [Mass/Vol]Ordered By: Taz Barnes on 05-18-2022 Ketones (U) [Mass/Vol] Negative [facility] N[facility] Ql (U)Ord ered By: Taz Barnes on 05-18-2022 Nitrite Ql (U) Negative Negative [facility] Protein Auto test strip (U) [Mass/Vol]Ordered By: Taz Barnes on 05-18-2022 Protein (U) [Mass/Vol] 100 mg/dL Negative Fi [facility] Specific gravity Auto test s trip (U) [Rel density]Ordered By: Taz Barnes on 05-18-2022 Specific gravity (U) [Rel density] 1.010 1.001-1.03 0 [facility] Squamous epithelial cells de tection in urine sediment by light microscopyOrdered By: Taz Barnes on 05-18-2022 Epithelial cells.squamous LM Ql (Urine sed) 1-2 [HPF] 0-2 [facility] Urine bacteria detection by automated methodOrdered By: Taz Barnes on 05-18-2022 Bacteria Auto Ql (U) None seen None Seen [facility] Urine clarity by refractomet ry automatedOrdered By: Taz Barnes on 05-18-2022 Clarity Refractometry automated (U) Turbid Clear [facility] Urine culture routineOrdered By: Taz Barnes on 05-18-2022 Bacteria identified Cx Nom (U) No Growth 2 Days [facility] Bacteria identified Cx Nom (U) No Growth 2 Days [facility] Urine glucose measurement by automated test strip (mass/volume)Ordered By: Taz Barnes on 05-18-2022 Glucose Auto test strip (U) [Mass/Vol] Normal mg/dL Normal [facility] Urine hemoglobin detection b y automated test stripOrdered By: Taz Barnes on 05-18-2022 Hemoglobin Auto test strip Ql (U) 2+ Negative [facility] Urine leukocyte esterase det ection by automated test stripOrdered By: Taz Barnes on 05-18-2022 Leukocyte esterase Auto test strip Ql (U) 4+ Negative [facility] Urobilinogen Auto test strip (U) [Mass/Vol]Ordered By: Taz Barnes on 05-18-2022 Urobilinogen (U) [Mass/Vol] Normal mg/dL Normal [facility] Yeast detection in urine sed iment by light microscopyOrdered By: Taz Barnes on 05-18-2022 Yeast LM Ql (Urine sed) None seen [HPF] None Se en [facility] pH Auto test strip (U)Ordere d By: Taz Barnes on 05-18-2022 pH (U) 7.5 [pH] 5.0-9.0 [facility] Activated partial thrombopla stin time (aPTT) in platelet poor plasma by coagulation aOrdered By: Taz Barnes on 05-16-2022 aPTT Coag (PPP) [Time] 29.5 s 25.1-36.5 [facility] Body fluid albumin measureme nt (mass/volume)Ordered By: Taz Barnes on 05-16-2022 Albumin (Body fld) [Mass/Vol] 2.9 g/dL 3.2-5.5 [facility] CBC AUTO DIFFon 05-16-2022 BASO # 0.0 103/ul Normal 0.0-0.1 [facility] Comment on above: Performed By: #### C BC #### [facility] [address] [address] [address] Karen Pierce Basophils/100 WBC (Bld) 0.3 % Normal 0.2-2.0 [facility] Comment on above: Performed By: #### C BC #### [facility] [address] [address] [address] Karen Pierce EO # 0.1 103/ul Normal 0.0-0.7 [facility] Comment on above: Performed By: #### C BC #### [facility] [address] [address] [address] Karen Pierce Eosinophils/100 WBC (Bld) 0.7 % Critically low 0.9-7.0 [facility] Comment on above: Performed By: #### C BC #### [facility] [address] [address] [address] Karen Pierce Erythrocyte distribution width (RBC) [Ratio] 14.8 % Normal 11.0-15.0 [facility] Comment on above: Performed By: #### C BC #### [facility] [address] [address] [address] Karen Pierce Hematocrit (Bld) [Volume fraction] 39.4 % Critically low 42.0-54.0 [facility] Comment on above: Performed By: #### C BC #### [facility] [address] [address] [address] Karen Pierce Hemoglobin (Bld) [Mass/Vol] 12.6 g/dL Critically low 14.0-18.0 [facility] Comment on above: Performed By: #### C BC #### [facility] [address] [address] [address] Karen Pierce IG # 0.04 10e3/ul Critically high 0.00-0.03 [facility] Comment on above: Performed By: #### C BC #### [facility] [address] [place] [address] Dr. Karen Pierce IG % 0.4 % Normal 0.0-0.5 [facility] Comment on above: Performed By: #### C BC #### [facility] [address] [place] [address] Dr. Karen Pierce LYMPH # 1.2 103/ul Normal 1.2-3.8 [facility] Comment on above: Performed By: #### C BC #### [facility] [address] [place] [address] Dr. Karen Pierce Lymphocytes/100 WBC (Bld) 11.8 % Critically low 20.5-60.0 [facility] Comment on above: Performed By: #### C BC #### [facility] [address] [place] [address] Dr. Karen Pierce MANUAL DIFF REQ NO Normal [facility] Comment on above: Performed By: #### C BC #### [facility] [address] [place] [address] Dr. Karen Pierce MCH (RBC) [Entitic mass] 27.5 pg Normal 25.9-34.0 [facility] Comment on above: Performed By: #### C BC #### [facility] [address] [place] [address] Dr. Karen Pierce MCHC (RBC) [Mass/Vol] 32.0 g/dL Normal 29.9-35.2 [facility] Comment on above: Performed By: #### C BC #### [facility] [address] [address] [address] Karen Pierce MCV (RBC) [Entitic vol] 86.0 fL Normal 80.0-94.0 [facility] Comment on above: Performed By: #### C BC #### [facility] [address] [address] [address] Karen Pierce MONO # 1.4 103/ul Critically high 0.3-0.8 [facility] Comment on above: Performed By: #### C BC #### [facility] [address] [place] [address] Dr. Karen Pierce Monocytes/100 WBC (Bld) 13.8 % Critically high 1.7-12. 0 [facility] Comment on above: Performed By: #### C BC #### [facility] [address] [place] [address] Dr. Karen Pierce NEUT # 7.6 103/ul Critically high 1.4-6.5 [facility] Comment on above: Performed By: #### C BC #### [facility] [address] [place] [address] Dr. Karen Pierce Neutrophils/100 WBC (Bld) 73.0 % Normal 43.0-75.0 [facility] Comment on above: Performed By: #### C BC #### [facility] [address] [place] [address] Dr. Karen Pierce Platelet mean volume (Bld) [Entitic vol] 10.6 fL Normal 9.5-13.5 [facility] Comment on above: Performed By: #### C BC #### [facility] [address] [place] [address] Dr. Karen Pierce PLT 193 103/ul Normal 150-450 [facility] Comment on above: Performed By: #### C BC #### [facility] [address] [place] [address] Dr. Karen Pierce RBC 4.58 106/ul Critically low 4.70-6.10 [facility] Comment on above: Performed By: #### C BC #### [facility] [address], [place] [address] Dr. Karen Pierce WBC 10.4 103/ul Normal 4.0-11.0 [facility] Comment on above: Performed By: #### C #### [facility] [address], [place] [address] ABD/PELVIS WO CONon [...] LORENZO SCHERER Date: 2022-05-16 09:21 Normal [facility] CULTURE URINEon 05-16-2022 CULTURE URINE Culture Observations : MODERATE GROWTH OF MIXED SKIN JAS. NO POTENTIAL PATHOGENS SEEN. Normal [facility] Comment on above: Performed By: #### U RTPCR #### [facility] [address] [place] [address] Dr. Karen Pierce Covid-19 PCR ([facility])on 04-26 SARS-CoV-2 (COVID-19) RNA KARI+probe Ql (Unsp spec) Not detected Normal NOT DETECTED [facility] Comment on above: Result Comment: When [...] for this test is supported by the [employer] and Human [employer]'s declaration that [...] used). Performed By: #### U A #### [facility] [address] [address] [address] Karen Pierce Creatinine [Mass/volume] in UrineOrdered By: Taz Barnes on 05-16-2022 Creatinine (U) [Mass/Vol] 68.1 mg/dL [facility] Comment on above: No reference range e stablished ER URINE PROFILEon 2 Bilirubin Ql (U) Negative Normal NEGATIVE [facility] Comment on above: Performed By: #### U RTPCR #### [facility] [address] [address] [address] Karen Pierce Clarity (U) CLEAR Normal CLEAR [facility] Comment on above: Performed By: #### U RTPCR #### [facility] [address] [address] [address] Karen Pierce Color (U) YELLOW Normal YELLOW [facility] Comment on above: Performed By: #### U RTPCR #### [facility] [address] [place] [address] Dr. Karen Pierce ERUAHD A micrscopic examina tion will be performed if indicated. Normal [facility] Comment on above: Performed By: #### U RTPCR #### [facility] [address] [address] [address] Karen Pierce Glucose Ql (U) Negative Normal NEGATIVE [facility] Comment on above: Performed By: #### U RTPCR #### [facility] [address] [place] [address] Dr. Karen Pierce Hemoglobin Ql (U) MODERATE Abnormal NEGATIVE [facility] Comment on above: Performed By: #### U RTPCR #### [facility] [address] [address] [address] Karen Pierce Ketones Ql (U) Negative Normal NEGATIVE [facility] Comment on above: Performed By: #### U RTPCR #### [facility] [address] [address] [address] Karen Pierce LEUKOCYTES LARGE Abnormal NEGATIVE [facility] Comment on above: Performed By: #### U RTPCR #### [facility] [address] [address] [address] Karen Pierce Nitrite Ql (U) Negative Normal NEGATIVE [facility] Comment on above: Performed By: #### U RTPCR #### [facility] [address] [address] [address] Karen Pierce pH (U) 5.5 [pH] Normal 5-9 [facility] Comment on above: Performed By: #### U RTPCR #### [facility] [address] [place] [address] Dr. Karen Pierce SPEC GRAVITY <=1.005 Abnormal 1.005-<=1. 025 [facility] Comment on above: Performed By: #### U RTPCR #### [facility] [address] [place] [address] Dr. Karen Pierce UA PROTEIN Negative Normal NEGATIVE/ TRACE [facility] Comment on above: Performed By: #### U RTPCR #### [facility] [address] [place] [address] Dr. Karen Pierce UR MICRO IND INDICATED Normal [facility] Comment on above: Performed By: #### U RTPCR #### [facility] [address] [place] [address] Dr. Karen Pierce Urobilinogen Qn (U) 0.2 {Tonio'U}/dL Normal 0.2 - 1. 0 [facility] Comment on above: Performed By: #### U RTPCR #### [facility] [address] [place] [address] Dr. Karen Pierce Globulin Calc (S) [Mass/Vol] Ordered By: Taz Barnes on 05-16-2022 Globulin (S) [Mass/Vol] 3.5 g/dL [facility] - CoagulationOrde red By: Taz Barnes on 05-16-2022 PT Coag (PPP) [Time] 14.2 s 9.0-12.9 [facility] PROF 14(COMP METB)on 022 Albumin [Mass/Vol] 3.1 g/dL Critically low 3.4-5.0 [facility] Comment on above: Performed By: #### U RTPCR #### [facility] [address] [place] [address] Dr. Karen Pierce Albumin/Globulin [Mass ratio] 0.7 {ratio} Normal [facility] Comment on above: Performed By: #### U RTPCR #### [facility] [address] [place] [address] Dr. Karen Pierce ALP [Catalytic activity/Vol] 96 U/L Normal 46-116 [facility] Comment on above: Performed By: #### U RTPCR #### [facility] [address] [place] [address] Dr. Karen Pierce ALT [Catalytic activity/Vol] 46 U/L Normal 16-63 [facility] Comment on above: Performed By: #### U RTPCR #### [facility] [address] [place] [address] Dr. Karen Pierce Anion gap [Moles/Vol] 19.7 mmol/L Normal [facility] Comment on above: Performed By: #### U RTPCR #### [facility] [address] [place] [address] Dr. Karen Pierce AST [Catalytic activity/Vol] 21 U/L Normal 15-37 [facility] Comment on above: Performed By: #### U RTPCR #### [facility] [address] [place] [address] Dr. Karen Pierce Bilirubin [Mass/Vol] 0.3 mg/dL Normal 0.2-1.0 [facility] Comment on above: Performed By: #### U RTPCR #### [facility] [address] [place] [address] Dr. Karen Pierce Calcium [Mass/Vol] 8.9 mg/dL Normal 8.5-10.1 [facility] Comment on above: Performed By: #### U RTPCR #### [facility] [address] [place] [address] Dr. Karen Pierce Chloride [Moles/Vol] 101 mmol/L Normal 98-107 [facility] Comment on above: Performed By: #### U RTPCR #### [facility] [address] [place] [address] Dr. Karen Pierce CO2 [Moles/Vol] 18.3 mmol/L Critically low 21.0-32.0 [facility] Comment on above: Performed By: #### U RTPCR #### [facility] [address] [place] [address] Dr. Karen Pierce Creatinine [Mass/Vol] 8.99 mg/dL Critically high 0.70-1.30 [facility] Comment on above: Performed By: #### U RTPCR #### [facility] [address] [place] [address] Dr. Karen Pierce EGFR-AF SUDANESE 7 mL/min/1.73m2 Critically low >=60 [facility] Comment on above: Performed By: #### U RTPCR #### [facility] [address] [place] [address] Dr. Karen Pierce EGFR-NON AF SUDANESE 6 mL/min/1.73m2 Critically low >=60 [facility] Comment on above: Performed By: #### U RTPCR #### [facility] [address] [place] [address] Dr. Karen Pierce Globulin (S) [Mass/Vol] 4.7 g/dL Normal [facility] Comment on above: Performed By: #### U RTPCR #### [facility] [address] [place] [address] Dr. Karen Pierce Glucose [Mass/Vol] 110 mg/dL Critically high 74-106 [facility] Comment on above: Performed By: #### U RTPCR #### [facility] [address] [place] [address] Dr. Karen Pierce Potassium [Moles/Vol] 5.0 mmol/L Normal 3.5-5.1 [facility] Comment on above: Performed By: #### U RTPCR #### [facility] [address] [place] [address] Dr. Karen Pierce Protein [Mass/Vol] 7.8 g/dL Normal 6.4-8.2 [facility] Comment on above: Performed By: #### U RTPCR #### [facility] [address] [place] [address] Dr. Karen Pierce Sodium [Moles/Vol] 134 mmol/L Critically low 136-145 [facility] Comment on above: Performed By: #### U RTPCR #### [facility] [address] [address] [address] Karen Pierce Urea nitrogen [Mass/Vol] 129.0 mg/dL Critically high 7.0-18.0 [facility] Comment on above: Performed By: #### U RTPCR #### [facility] [address] [address] [address] Karen Pierce Urea nitrogen/Creatinine [Mass ratio] 14.3 mg/mg Normal [facility] Comment on above: Performed By: #### U RTPCR #### [facility] [address] [address] [address] Karen Pierce Platelet poor plasma interna tional normalized ratio (INR) by coagulation assay (relatOrdered By: Taz Barnes on 05-16-2022 INR Coag (PPP) [Relative time] 1.3 {INR} [facility] Comment on above: INR Therapeutic Rang e [...] on 05-16-2022 Protein [Mass/Vol] 6.4 g/dL 6.1-7.9 [facility] Serum or plasma alanine bal otransferase measurement without P-5'-P (enzymatic activiOrdered By: Taz Barnes on 05-16-2022 ALT No additional P-5'-P [Catalytic activity/Vol] 38 U/L 10-60 [facility] Serum or plasma albumin/glob ulin mass ratioOrdered By: Taz Barnes on 05-16-2022 Albumin/Globulin [Mass ratio] 0.8 {ratio} [facility] Serum or plasma alkaline deonte sphatase measurement (enzymatic activity/volume)Ordered By: Taz Barnes on 05-16-2022 ALP [Catalytic activity/Vol] 78 U/L 32-92 [facility] Serum or plasma aspartate am inotransferase measurement (enzymatic activity/volume)Ordered By: Taz Barnes on 05-16-2022 AST [Catalytic activity/Vol] 19 U/L 10-42 [facility] Serum or plasma total biliru bin measurement (mass/volume)Ordered By: Taz Barnes on 05-16-2022 Bilirubin [Mass/Vol] 0.4 mg/dL 0.3-1.2 [facility] URINE MICROSCOPIC ONLYon BACTERIA SMALL Abnormal NONE SEEN [facility] Comment on above: Performed By: #### U RTPCR #### [facility] [address] [place] [address] Dr. Karen Pierce Bacteria identified Cx Nom (U) INDICATED Normal [facility] Comment on above: Performed By: #### U RTPCR #### [facility] [address] [place] [address] Dr. Karen Pierce CAST NONE SEEN Normal NONE SEEN [facility] Comment on above: Performed By: #### U RTPCR #### [facility] [address] [place] [address] Dr. Karen Pierce Crystals LM Nom (Urine sed) NONE SEEN Normal NONE SEEN [facility] Comment on above: Performed By: #### U RTPCR #### [facility] [address] [place] [address] Dr. Karen Pierce Epithelial cells LM Ql (Urine sed) NONE SEEN Normal NONE SEEN /RARE [facility] Comment on above: Performed By: #### U RTPCR #### [facility] [address] [place] [address] Dr. Karen Pierce MUCOUS NONE SEEN Normal NONE SEEN [facility] Comment on above: Performed By: #### U RTPCR #### [facility] [address] [place] [address] Dr. Karen Pierce RBC 20-50 Abnormal 0-2 [facility] Comment on above: Performed By: #### U RTPCR #### [facility] [address] [place], [place] [id number] Dr. Karen Peirce WBC (U) [#/Vol] /uL Abnormal NONE SEEN [facility] Comment on above: Performed By: #### U RTPCR #### [facility] [address] [address] [address] Karen Pierce Urine sodium measurement (mo les/volume)Ordered By: Taz Barnes on 05-16-2022 Sodium (U) [Moles/Vol] 42.0 mmol/L F [facility] Comment on above: No reference [...] LORENZO SCHERER Date: 2022-05-16 09:25 Normal [facility] CBC AUTO DIFFon 05-15-2022 BASO # 0.0 103/ul Normal 0.0-0.1 [facility] Comment on above: Performed By: #### U A #### [facility] [address] [place] [address] Dr. Karen Pierce Basophils/100 WBC (Bld) 0.3 % Normal 0.2-2.0 [facility] Comment on above: Performed By: #### U A #### [facility] [address] [address] [address] Karen Pierce EO # 0.1 103/ul Normal 0.0-0.7 [facility] Comment on above: Performed By: #### U A #### [facility] [address] [place] [address] Dr. Karen Pierce Eosinophils/100 WBC (Bld) 0.7 % Critically low 0.9-7.0 [facility] Comment on above: Performed By: #### U A #### [facility] [address] [place] [address] Dr. Karen Pierce Erythrocyte distribution width (RBC) [Ratio] 14.9 % Normal 11.0-15.0 [facility] Comment on above: Performed By: #### U A #### [facility] [address] [place] [address] Dr. Karen Pierce Hematocrit (Bld) [Volume fraction] 39.8 % Critically low 42.0-54.0 [facility] Comment on above: Performed By: #### U A #### [facility] [address] [place] [address] Dr. Karen Pierce Hemoglobin (Bld) [Mass/Vol] 12.7 g/dL Critically low 14.0-18.0 [facility] Comment on above: Performed By: #### U A #### [facility] [address] [place] [address] Dr. Karen Pierce IG # 0.06 10e3/ul Critically high 0.00-0.03 [facility] Comment on above: Performed By: #### U A #### [facility] [address] [place] [address] Dr. Karen Pierce IG % 0.5 % Normal 0.0-0.5 [facility] Comment on above: Performed By: #### U A #### [facility] [address] [place] [address] Dr. Karen Pierce LYMPH # 0.9 103/ul Critically low 1.2-3.8 [facility] Comment on above: Performed By: #### U A #### [facility] [address] [place] [address] Dr. Karen Pierce Lymphocytes/100 WBC (Bld) 7.1 % Critically low 20.5-60.0 [facility] Comment on above: Performed By: #### U A #### [facility] [address] [place] [address] Dr. Karen Pierce MANUAL DIFF REQ NO Normal [facility] Comment on above: Performed By: #### U A #### [facility] [address] [address] [address] Karen Pierce MCH (RBC) [Entitic mass] 27.7 pg Normal 25.9-34.0 [facility] Comment on above: Performed By: #### U A #### [facility] [address] [place] [address] Dr. Karen Pierce MCHC (RBC) [Mass/Vol] 31.9 g/dL Normal 29.9-35.2 [facility] Comment on above: Performed By: #### U A #### [facility] [address] [place] [address] Dr. Karen Pierce MCV (RBC) [Entitic vol] 86.7 fL Normal 80.0-94.0 [facility] Comment on above: Performed By: #### U A #### [facility] [address] [place] [address] Dr. Karen Pierce MONO # 1.0 103/ul Critically high 0.3-0.8 [facility] Comment on above: Performed By: #### U A #### [facility] [address] [place] [address] Dr. Karen Pierce Monocytes/100 WBC (Bld) 8.5 % Normal 1.7-12.0 [facility] Comment on above: Performed By: #### U A #### [facility] [address] [place] [address] Dr. Karen Pierce NEUT # 9.9 103/ul Critically high 1.4-6.5 [facility] Comment on above: Performed By: #### U A #### [facility] [address] [place] [address] Dr. Karen Pierce Neutrophils/100 WBC (Bld) 82.9 % Critically high 43.0-75.0 [facility] Comment on above: Performed By: #### U A #### [facility] [address] [place] [address] Dr. Karen Pierce Platelet mean volume (Bld) [Entitic vol] 9.7 fL Normal 9.5-13.5 [facility] Comment on above: Performed By: #### U A #### [facility] [address] [place] [address] Dr. Karen Pierce PLT 206 103/ul Normal 150-450 [facility] Comment on above: Performed By: #### U A #### [facility] [address] [place] [address] Dr. Karen Pierce RBC 4.59 106/ul Critically low 4.70-6.10 [facility] Comment on above: Performed By: #### U A #### [facility] [address] [place] [address] Dr. Karen Pierce WBC 11.9 103/ul Critically high 4.0-11.0 [facility] Comment on above: Performed By: #### U A #### [facility] [address] [place] [address] Dr. Karen Pierce LIPASEon 05-15-2022 Lipase [Catalytic activity/Vol] 340.0 U/L Normal 73.0-393.0 [facility] Comment on above: Performed By: #### U A #### [facility] [address] [place] [address] Dr. Karen Pierce PROF 14(COMP METB)on 022 Albumin [Mass/Vol] 3.1 g/dL Critically low 3.4-5.0 [facility] Comment on above: Performed By: #### U A #### [facility] [address] [place] [address] Dr. Karen Pierce Albumin/Globulin [Mass ratio] 0.7 {ratio} Normal [facility] Comment on above: Performed By: #### U A #### [facility] [address] [place] [address] Dr. Karen Pierce ALP [Catalytic activity/Vol] 105 U/L Normal 46-116 [facility] Comment on above: Performed By: #### U A #### [facility] [address] [place] [address] Dr. Karen Pierce ALT [Catalytic activity/Vol] 49 U/L Normal 16-63 [facility] Comment on above: Performed By: #### U A #### [facility] [address] [address] [address] Karen Pierce Anion gap [Moles/Vol] 18.4 mmol/L Normal [facility] Comment on above: Performed By: #### U A #### [facility] [address] [address] [address] Karen Pierce AST [Catalytic activity/Vol] 20 U/L Normal 15-37 [facility] Comment on above: Performed By: #### U A #### [facility] [address] [address] [address] Karen Pierce Bilirubin [Mass/Vol] 0.3 mg/dL Normal 0.2-1.0 [facility] Comment on above: Performed By: #### U A #### [facility] [address] [address] [address] Karen Pierce Calcium [Mass/Vol] 9.1 mg/dL Normal 8.5-10.1 [facility] Comment on above: Performed By: #### U A #### [facility] [address] [address] [address] Karen Pierce Chloride [Moles/Vol] 103 mmol/L Normal 98-107 [facility] Comment on above: Performed By: #### U A #### [facility] [address] [address] [address] Karen Pierce CO2 [Moles/Vol] 20.1 mmol/L Critically low 21.0-32.0 [facility] Comment on above: Performed By: #### U A #### [facility] [address] [address] [address] Karen Pierce Creatinine [Mass/Vol] 9.58 mg/dL Critically high 0.70-1.30 [facility] Comment on above: Performed By: #### U A #### [facility] [address] [address] [address] Karen Pierce EGFR-AF SUDANESE 6 mL/min/1.73m2 Critically low >=60 [facility] Comment on above: Performed By: #### U A #### [facility] [address] [address] [address] Karen Pierce EGFR-NON AF SUDANESE 5 mL/min/1.73m2 Critically low >=60 [facility] Comment on above: Performed By: #### U A #### [facility] [address] [address] [address] Karen Pierce Globulin (S) [Mass/Vol] 4.6 g/dL Normal [facility] Comment on above: Performed By: #### U A #### [facility] [address] [address] [address] Karen Pierce Glucose [Mass/Vol] 114 mg/dL Critically high 74-106 [facility] Comment on above: Performed By: #### U A #### [facility] [address] [address] [address] Karen Pierce Potassium [Moles/Vol] 5.5 mmol/L Critically high 3.5-5.1 [facility] Comment on above: Performed By: #### U A #### [facility] [address] [address] [address] Karen Pierce Protein [Mass/Vol] 7.7 g/dL Normal 6.4-8.2 [facility] Comment on above: Performed By: #### U A #### [facility] [address] [address] [address] Karen Pierce Sodium [Moles/Vol] 136 mmol/L Normal 136-145 [facility] Comment on above: Performed By: #### U A #### [facility] [address] [address] [address] Karen Pierce Urea nitrogen [Mass/Vol] 134.0 mg/dL Critically high 7.0-18.0 [facility] Comment on above: Performed By: #### U A #### [facility] [address] [address] [address] Karen Pierce Urea nitrogen/Creatinine [Mass ratio] 14.0 mg/mg Normal [facility] Comment on above: Performed By: #### U A #### [facility] [address] [address] [address] Karen Pierce PROF CHEM 8 (BAS METB)on Anion gap [Moles/Vol] 12.6 mmol/L Normal [facility] Comment on above: Performed By: #### B MP #### [facility] [address] [address] [address] Karen Pierce Calcium [Mass/Vol] 8.7 mg/dL Normal 8.5-10.1 [facility] Comment on above: Performed By: #### B MP #### [facility] [address] [address] [address] Karen Pierce Chloride [Moles/Vol] 103 mmol/L Normal 98-107 [facility] Comment on above: Performed By: #### B MP #### [facility] [address] [place] [address] Dr. Karen Pierce CO2 [Moles/Vol] 27.3 mmol/L Normal 21.0-32.0 [facility] Comment on above: Performed By: #### B MP #### [facility] [address] [address] [address] Karen Pierce Creatinine [Mass/Vol] 1.26 mg/dL Normal 0.70-1.30 [facility] Comment on above: Performed By: #### B MP #### [facility] [address] [address] [address] Karen Pierce EGFR-AF SUDANESE >60 Normal >=60 [facility] Comment on above: Performed By: #### B MP #### [facility] [address] [address] [address] Karen Pierce EGFR-NON AF SUDANESE 55 mL/min/1.73m2 Critically low >=60 [facility] Comment on above: Performed By: #### B MP #### [facility] [address] [address] [address] Karen Pierce Glucose [Mass/Vol] 111 mg/dL Critically high 74-106 T [facility] Comment on above: Performed By: #### B MP #### [facility] [address], [place] [address] Dr. Karen Pierce Potassium [Moles/Vol] 3.9 mmol/L Normal 3.5-5.1 [facility] Comment on above: Performed By: #### B MP #### [facility] [address], [place] [address] Dr. Karen Pierce Sodium [Moles/Vol] 139 mmol/L Normal 136-145 [facility] Comment on above: Performed By: #### B MP #### [facility] [address], [place] [address] Dr. Karen Pierce Urea nitrogen [Mass/Vol] 21.0 mg/dL Critically high 7.0-18.0 [facility] Comment on above: Performed By: #### B ROBYN #### [facility] [address], [place] [address] Dr. Karen Pierce Urea nitrogen/Creatinine [Mass ratio] 16.7 mg/mg Normal [facility] Comment on above: Performed By: #### B ROBYN #### [facility] [address], [place] [address] Dr. Karen Pierce [facility] Metabolic Pane [facility] 05-11-2021 Albumin [Mass/Vol] 4.5 g/dL Normal 3.6-5.1 [facility] Comment on above: Performed By: #### C KILO CARLSON #### [facility] [address], [place] [id number] Albumin/Globulin [Mass ratio] 2.0 {ratio} Normal 1.0-2.5 [facility] [facility] Comment on above: Performed By: #### C KILO CARLSON #### [facility] [address], [place] [id number] ALP [Catalytic activity/Vol] 97 U/L Normal 40-129 [facility] Comment on above: Performed By: #### C KILO CARLSON #### [facility] [address], [place] [id number] ALT [Catalytic activity/Vol] 18 U/L Normal 9-46 [facility] Comment on above: Result Comment: 04/25 Female reference range changed. Performed By: #### C MP, LIPD #### [facility] [address] [place], [place] [id number] Anion gap [Moles/Vol] 17 mmol/L Normal 12-20 [facility] Comment on above: Result Comment: Giacomo ctive 05/31/2019 reference range changed. Performed By: #### C MP, LIPD #### [facility] [address] [place] [id number] AST [Catalytic activity/Vol] 15 U/L Normal 10-40 [facility] Comment on above: Performed By: #### C MP, LIPD #### [facility] [address] [place], [place] [id number] Bilirubin [Mass/Vol] 0.55 mg/dL Normal 0.30-1.20 [facility] Comment on above: Performed By: #### C MP, LIPD #### [facility] [address] [place], [place] [id number] BUN/CREA 17 Ratio Normal 6-22 [facility] Comment on above: Performed By: #### C MP, LIPD #### [facility] [address] [place], [place] [id number] Calcium [Mass/Vol] 9.8 mg/dL Normal 8.6-10.2 [facility] Comment on above: Performed By: #### C MP, LIPD #### [facility] [address] [facility]NOTE 3] [place] [id number] Chloride [Moles/Vol] 106 mmol/L Normal 98-107 [facility] Comment on above: Performed By: #### C MP, LIPD #### [facility] [address] [facility]NOTE 3] [place] [id number] CO2 [Moles/Vol] 23 mmol/L Normal 20-31 [facility] Comment on above: Performed By: #### C MP, LIPD #### [facility] [address] [facility]NOTE 3] [place] [id number] Creatinine [Mass/Vol] 1.2 mg/dL Normal 0.7-1.4 [facility] Comment on above: Performed By: #### C MP, LIPD #### [facility] [address] [place], [place] [id number] eGFRAA 73 mL/min/1.73m2 Normal >60 [facility] Comment on above: Performed By: #### C KILO CARLSON #### [facility] [address], [place] [id number] eGFRNAA 60 mL/min/1.73m2 Low >60 [facility] Comment on above: Performed By: #### C ROBYN LIPD #### [facility] [address], [place] [id number] Globulin (S) [Mass/Vol] 2.3 g/dL Normal 1.9-3.7 [facility] Comment on above: Performed By: #### C ROBYN LIPElvie #### [facility] [address], [place] [id number] Glucose [Mass/Vol] 105 mg/dL High 65-99 [facility] Specialist Comment on above: Result Comment: For FASTING Glucose --- ADA reference ranges: Normal 65-99 mg/dl Prediabetes 100-125 Diabetes >/= 126 Performed By: #### C ROBYN LIPElvie #### [facility] [address], [place] [id number] Potassium [Moles/Vol] 4.1 mmol/L Normal 3.5-5.5 [facility] Comment on above: Performed By: #### C ROBYN LIPD #### [facility] [address], [place] [id number] Protein [Mass/Vol] 6.8 g/dL Normal 6.1-8.1 [facility] Comment on above: Performed By: #### C ROBYN LIPElvie #### [facility] [address], [place] [id number] Sodium [Moles/Vol] 142 mmol/L Normal 135-146 [facility] Comment on above: Performed By: #### C ROBYN LIPD #### [facility] [address], [place] [id number] Urea nitrogen [Mass/Vol] 20 mg/dL Normal 7-25 [facility] Comment on above: Performed By: #### C MP, LIPD #### [facility] [address], [place] [id number] Lipid Panelon 05-11-2021 Cholesterol [Mass/Vol] 109 mg/dL Low 125-200 [facility]: Result Comment: Low risk < 200mg/dL Borderline risk 201-239 mg/dl High risk > or equal to 240 Performed By: #### C MP, LIPD #### [facility] [address], [place] [id number] Cholesterol in HDL [Mass/Vol] 30 mg/dL Low >40 [facility] Comment on above: Result Comment: High Cardiovascular Risk HDL <40 mg/dL Low Cardiovascular Risk HDL > or equal to 60 mg/dl Performed By: #### C ROBYN, LIPD #### [facility] [address], [place] [id number] Cholesterol in LDL [Mass/Vol] 54 mg/dL Normal [facility] Comment on above: Result Comment: LDL ATP III CLASSIFICATION LDL less than 100 mg/dl Optimal LDL 100-129 mg/dl Near or above optimal LDL 130-159 Borderline high LDL 160-189 High LDL greater than 189 mg/dl Very High Performed By: #### C MP, LIPD #### [facility] [address], [place] [id number] Cholesterol in VLDL [Mass/Vol] 25 mg/dL Normal [facility] Comment on above: Performed By: #### C MP, LIPD #### [facility] [address], [place] [id number] Cholesterol.total/Sonya sterol in HDL [Mass ratio] 4 {ratio} Normal [facility] Comment on above: Performed By: #### C MP, LIPD #### [facility] [address], [place] [id number] Triglyceride [Mass/Vol] 126 mg/dL Normal 30-150 [facility] Comment on above: Result Comment: TRIG ATPIII CLASSIFICATIONS TRIG less than 150 mg/dl Normal TRIG 150-199 mg/dl Borderline High TRIG 200-500 mg/dl High TRIG greather than 500 mg/dl Very High Performed By: #### C MP, LIPD #### [facility] [address], [place] [id number] Vital Signs Date Time Vital Sign Value Performing Clinician Facility 09-18-2023 10:47-0400 Body height 187.96 cm MD Stanley Emerson Work Phone: [facility] 09-18-2023 10:47-0400 Body mass index (BMI) [Ratio] 28.6 kg/m2 MD Stanley Emerson Work Phone: [facility] 09-18-2023 10:47-0400 Body temperature 97.8 [degF] MD Stanley Emerson Work Phone: [facility] 09-18-2023 10:47-0400 Body weight 101.15 kg MD Stanley Emerson Work Phone: [facility] 09-18-2023 10:47-0400 Diastolic blood pressure 68 mm[Hg] MD Stanley Emerson Work Phone: [facility] 09-18-2023 10:47-0400 Heart rate 64 /min MD Stanley Emerson Work Phone: [facility] 09-18-2023 10:47-0400 Respiratory rate 16 /min MD Stanley Emerson Work Phone: [facility] 09-18-2023 10:47-0400 SaO2% (BldA) [Mass fraction] 98 % MD Stanley Emerson Work Phone: [facility] 09-18-2023 10:47-0400 Systolic blood pressure 118 mm[Hg] MD Stanley Emerson Work Phone: [facility] 06-30-2023 14:17-0500 Blood Pressure Location Katia SAMUELS [facility] 06-30-2023 14:17-0500 Diastolic blood pressure 77 mm[Hg] Katia SAMUELS [facility] 06-30-2023 14:17-0500 Heart rate 70 /min Katia SAMUELS [facility] 06-30-2023 14:17-0500 Respiratory rate 16 /min Katia SAMUELS [facility] 06-30-2023 14:17-0500 Systolic blood pressure 109 mm[Hg] Katia SAMUELS [facility] 04-15-2023 14:00-0500 Body height 187.96 cm Jonhcelestino Francess Other [facility] Other 04-15-2023 14:00-0500 Body mass index (BMI) [Ratio] 28.73 kg/m2 Azcelestino Sportubecatherines Other [facility] Other 04-15-2023 14:00-0500 Body temperature 96.8 [degF] Aziz Sportubecatherines Other [facility] Other 04-15-2023 14:00-0500 Body weight 101.52 kg Aziz Bakhous Other [facility] Other 04-15-2023 14:00-0500 Diastolic blood pressure 100 mm[Hg] Azcelestino Sportubehous Other [facility] Other 04-15-2023 14:00-0500 Respiratory rate 18 /min Aziz Sportubehous Other [facility] Other 04-15-2023 14:00-0500 SaO2% (BldA) [Mass fraction] 96 % Aziz Bakhous Other [facility] Other 04-15-2023 14:00-0500 Systolic blood pressure 161 mm[Hg] Aziz Bakhous Other [facility] [employer] Other 03-11-2023 13:38-0400 Blood Pressure Location Katia SAMUELS [facility] 03-11-2023 13:38-0400 Diastolic blood pressure 100 mm[Hg] Katia SAMUELS [facility] 03-11-2023 13:38-0400 Heart rate 72 /min Katia SAMUELS [facility] 03-11-2023 13:38-0400 Systolic blood pressure 150 mm[Hg] Katia SAMUELS [facility] 01-22-2023 09:57-0400 Body height 187.96 cm Stanley Emerson Work Phone: [facility] [address] DO Work Phone: 01-22-2023 09:57-0400 Body mass index (BMI) [Ratio] 27.35 kg/m2 Stanley Emerson Work Phone: [facility] DO Work Phone: 01-22-2023 09:57-0400 Body surface area Derived from formula 2.23 m2 Stanley Emerson Work Phone: [facility] 250 DO Work Phone: 01-22-2023 09:57-0400 Body weight 96.62 kg Stanley Emerson Work Phone: [facility] DO Work Phone: 01-22-2023 09:57-0400 Diastolic blood pressure 88 mm[Hg] Stanley Emerson Work Phone: [facility] DO Work Phone: 01-22-2023 09:57-0400 Heart rate 72 /min Stanley Emerson Work Phone: [facility] DO Work Phone: 01-22-2023 09:57-0400 Systolic blood pressure 126 mm[Hg] Stanley Emerson Work Phone: [facility] DO Work Phone: 08-21-2022 14:30-0400 Body height 187.96 cm Carlene Mezatrey Other [facility] Other 08-21-2022 14:30-0400 Body mass index (BMI) [Ratio] 26.32 kg/m2 Carlene Ranjith Other [facility] Other 08-21-2022 14:30-0400 Body temperature 97.8 [degF] Carlene Mezatrey Other [facility] Other 08-21-2022 14:30-0400 Body weight 92.99 kg Carlene Mezatrey Other [facility] Other 08-21-2022 14:30-0400 Diastolic blood pressure 82 mm[Hg] Carlene Kasper Other [facility] Other 08-21-2022 14:30-0400 SaO2% (BldA) [Mass fraction] 96 % Carlene Kasper Other [facility] Other 08-21-2022 14:30-0400 Systolic blood pressure 124 mm[Hg] Carlene Kasper Other [facility] Other 07-31-2022 07:25-0500 Blood Pressure Location Katia SAMUELS [facility] 07-31-2022 07:25-0500 Diastolic blood pressure 89 mm[Hg] Katia SAMUELS [facility] 07-31-2022 07:25-0500 Heart rate 70 /min Katia SAMUELS [facility] 07-31-2022 07:25-0500 Respiratory rate 16 /min Katia SAMUELS [facility] 07-31-2022 07:25-0500 Systolic blood pressure 130 mm[Hg] Katia SAMUELS [facility] 07-25-2022 09:45-0500 Body height 187.96 cm Margarito Valentine Other [facility] Other 07-25-2022 09:45-0500 Body mass index (BMI) [Ratio] 26.32 kg/m2 Margarito Valentine Other [facility] Other 07-25-2022 09:45-0500 Body temperature 96.2 [degF] Margarito Valentine Other [facility] Other 07-25-2022 09:45-0500 Body weight 92.99 kg Margarito Valentine Other [facility] Other 07-25-2022 09:45-0500 Diastolic blood pressure 60 mm[Hg] Margarito Valentine Other [facility] Other 07-25-2022 09:45-0500 SaO2% (BldA) [Mass fraction] 97 % Margarito Valentine Other [facility] [employer] Other 07-25-2022 09:45-0500 Systolic blood pressure 110 mm[Hg] Margarito Serge Other [facility] Other 07-03-2022 07:34-0500 Body temperature 98.9 [degF] MD Stanley Emerosn Work Phone: [facility] 07-03-2022 07:34-0500 Diastolic blood pressure 91 mm[Hg] MD Stanley Emerson Work Phone: [facility] 07-03-2022 07:34-0500 Heart rate 87 /min MD Stanley Emerson Work Phone: [facility] 07-03-2022 07:34-0500 Respiratory rate 18 /min MD Stanley Emerson Work Phone: [facility] 07-03-2022 07:34-0500 SaO2% (BldA) [Mass fraction] 94 % MD Stanley Emerson Work Phone: [facility] 07-03-2022 07:34-0500 Systolic blood pressure 159 mm[Hg] MD Stanley Emerson Work Phone: [facility] 07-03-2022 05:46-0500 Body weight 94 kg MD Stanley Emerson Work Phone: [facility] 07-02-2022 16:27-0500 Inhaled oxygen flow rate 6 L/min MD Stanley Emerson Work Phone: [facility] 07-02-2022 10:06-0500 Body height 185.42 cm MD Stanley Emerson Work Phone: [facility] 07-02-2022 10:06-0500 Body mass index (BMI) [Ratio] 27.3 kg/m2 MD Stanley Emerson Work Phone: [facility] 06-19-2022 10:00-0500 Body height 187.96 cm Margarito Valentine Other [facility] Other 06-19-2022 10:00-0500 Body mass index (BMI) [Ratio] 26.32 kg/m2 Margarito Valentine Other [facility] Other 06-19-2022 10:00-0500 Body temperature 97.8 [degF] Margarito Valentine Other [facility] Other 06-19-2022 10:00-0500 Body weight 92.99 kg Margarito Valentine Other [facility] Other 06-19-2022 10:00-0500 Diastolic blood pressure 68 mm[Hg] Margarito Valentine Other [facility] Other 06-19-2022 10:00-0500 SaO2% (BldA) [Mass fraction] 95 % Margaritobrionna Valentine Other [facility] Other 06-19-2022 10:00-0500 Systolic blood pressure 108 mm[Hg] Margarito Valentine Other [facility] Other 06-12-2022 13:07-0500 Body height 187.96 cm MD Stanley Emerson Work Phone: [facility] 06-12-2022 13:07-0500 Body weight 93.44 kg MD Stanley Emerson Work Phone: [facility] 06-06-2022 12:00-0500 Body height 187.96 cm Margarito Valentine Other [facility] Other 06-06-2022 12:00-0500 Body mass index (BMI) [Ratio] 26.32 kg/m2 Margarito Topetesarina Other [facility] Other 06-06-2022 12:00-0500 Body temperature 97.2 [degF] Margarito Topetesarina Other [facility] Other 06-06-2022 12:00-0500 Body weight 92.99 kg Margarito Topetesarina Other [facility] Other 06-06-2022 12:00-0500 Diastolic blood pressure 70 mm[Hg] Margarito Topetesarina Other [facility] Other 06-06-2022 12:00-0500 SaO2% (BldA) [Mass fraction] 98 % Margarito Topetesarina Other [facility] Other 06-06-2022 12:00-0500 Systolic blood pressure 108 mm[Hg] Margarito Topetesarina Other [facility] Other 06-04-2022 12:00-0500 Body height 187.96 cm Celia Danielsfrancoise Other [facility] Other 06-04-2022 12:00-0500 Body mass index (BMI) [Ratio] 26.42 kg/m2 Jonhcelestino Sportubecatherines Other [facility] Other 06-04-2022 12:00-0500 Body temperature 96.6 [degF] Jonhcelestino Terezacatherines Other [facility] Other 06-04-2022 12:00-0500 Body weight 93.35 kg Jonhcelestino Sportubecatherines Other [facility] Other 06-04-2022 12:00-0500 Diastolic blood pressure 70 mm[Hg] Celia Ramos Other [facility] [employer] Other 06-04-2022 12:00-0500 Respiratory rate 20 /min Celia Ramos Other [facility] Other 06-04-2022 12:00-0500 SaO2% (BldA) [Mass fraction] 98 % Celia Ramos Other [facility] [employer] Other 06-04-2022 12:00-0500 Systolic blood pressure 100 mm[Hg] Celia Ramos Other [facility] [employer] Other 06-03-2022 15:38-0500 Body height 187.96 cm Stanley Emerson Work Phone: [facility] [place] 250 DO Work Phone: 06-03-2022 15:38-0500 Body mass index (BMI) [Ratio] 26.45 kg/m2 Stanley Emerson Work Phone: [facility] [place] [address] DO Work Phone: 06-03-2022 15:38-0500 Body surface area Derived from formula 2.2 m2 Stanley Emerson Work Phone: [facility] [place] [address] DO Work Phone: 06-03-2022 15:38-0500 Body weight 93.44 kg Stanley Emerson Work Phone: [facility] [place] 250 DO Work Phone: 06-03-2022 15:38-0500 Diastolic blood pressure 78 mm[Hg] Stanley Emerson Work Phone: [facility] [facility] DO Work Phone: 06-03-2022 15:38-0500 Heart rate 71 /min Stanley Emerson Work Phone: [facility] [facility] DO Work Phone: 06-03-2022 15:38-0500 Systolic blood pressure 106 mm[Hg] Stanley Emerson Work Phone: [facility] DO Work Phone: 05-22-2022 11:53-0500 Body temperature 98.8 [degF] MD Stanley Emerson Work Phone: [facility] 05-22-2022 11:53-0500 Diastolic blood pressure 72 mm[Hg] MD Stanley Emerson Work Phone: [facility] 05-22-2022 11:53-0500 Heart rate 78 /min MD Stanley Emerson Work Phone: [facility] 05-22-2022 11:53-0500 Respiratory rate 16 /min MD Stanley Emerson Work Phone: [facility] 05-22-2022 11:53-0500 SaO2% (BldA) [Mass fraction] 97 % MD Stanley Emerson Work Phone: [facility] 05-22-2022 11:53-0500 Systolic blood pressure 108 mm[Hg] MD Stanley Emerson Work Phone: [facility] 05-22-2022 06:02-0500 Body weight 88.8 kg MD Stanley Emerson Work Phone: [facility] 05-21-2022 11:48-0500 63 1 Stanley Emerson Work Phone: [facility] DO Work Phone: Comment on above: [id number] 05-17-2022 12:08-0500 Body height 187.96 cm MD Stanley Emerson Work Phone: [facility] Encounters Encounter Date Encounter Type Care Provider Facility Start: 10-07-2023 End: 10-08-2023 ambulatory Katia Isabel ARLENE Facility:[facility] Start: 10-07-2023 End: 10-07-2023 Patient encounter procedure Katia R ARLENE [facility] Start: 10-06-2023 End: 10-06-2023 ambulatory STANLEY EMERSON Not Available Start: 10-03-2023 End: 10-04-2023 ambulatory Katia SAMUELS Facility:[facility] Start: 10-03-2023 End: 10-03-2023 Lab Drop off Katia Isabel ARLENE [facility] Start: 10-03-2023 End: 10-03-2023 Patient encounter procedure Katia R ARLENE [facility] Start: 09-18-2023 Bradyarrhythmia MD Stanley billingsley Work Phone: [facility] Start: 09-18-2023 End: 09-18-2023 ambulatory MD Stanley Emerson Work Phone: [facility] Work Phone: Start: 09-18-2023 End: 09-18-2023 Patient encounter procedure MD Stanley Emerson Work Phone: [facility] Work Phone: Start: 09-11-2023 End: 09-12-2023 ambulatory Katia SAMUELS Facility:[facility] Start: 09-11-2023 End: 09-11-2023 Patient encounter procedure Katia SAMUELS [facility] Start: 08-18-2023 End: 08-18-2023 ambulatory Margarito Valentine Facility:[facility] Start: 08-18-2023 End: 08-18-2023 ambulatory MD Stanley Emerson Work Phone: [facility] Work Phone: Start: 08-18-2023 End: 08-18-2023 Patient encounter procedure MD Stanley Emerson Work Phone: [facility] [place] Work Phone: Start: 08-15-2023 End: 08-16-2023 ambulatory Katia SAMUELS Facility:[facility] [place] Start: 08-15-2023 End: 08-15-2023 Patient encounter procedure Katia SAMUELS [facility] [place] Start: 08-04-2023 End: 08-04-2023 ambulatory STANLEY EMERSON Not Available Start: 07-01-2023 End: 07-02-2023 ambulatory Katia SAMUELS Facility:[facility] [place] Start: 06-30-2023 End: 07-01-2023 ambulatory Katiadesi SAMUELS Facility:[facility] Start: 06-30-2023 End: 06-30-2023 Patient encounter procedure [facility] Start: 06-16-2023 End: 06-17-2023 ambulatory Katiadesi SAMUELS Facility:[facility] Start: 06-16-2023 End: 06-16-2023 Patient encounter procedure [facility]RLENE [facility] Start: 06-10-2023 End: 06-11-2023 ambulatory Katiadesi SAMUELS Facility:[facility] Start: 06-10-2023 End: 06-10-2023 Patient encounter procedure Katia R ARLENE [facility] Start: 05-28-2023 End: 05-28-2023 ambulatory STANLEY EMERSON Not Available Start: 05-12-2023 End: 05-12-2023 ambulatory STANLEY EMERSON Not Available Start: 05-06-2023 End: 05-06-2023 ambulatory Aziz Bakhous Other [facility] Other Start: 05-06-2023 Telephone encounter Aziz Bakhous [facility] Start: 04-16-2023 End: 04-16-2023 ambulatory Aziz Bakhous Other [facility] Other Start: 04-16-2023 Telephone encounter Aziz Bakhous [facility] Start: 04-15-2023 End: 04-15-2023 ambulatory Aziz Bakhous Other [facility] Other Start: 04-15-2023 Office outpatient vi sit 25 minutes Aziz Bakhous [facility] Start: 04-08-2023 End: 04-08-2023 ambulatory Teo Stokes Facility:[facility] Start: 04-08-2023 End: 04-08-2023 ambulatory MD Stanley Emerson Work Phone: [facility] Work Phone: Start: 04-08-2023 End: 04-08-2023 Patient encounter procedure MD Stanley Emerson Work Phone: [facility] Start: 03-11-2023 End: 03-12-2023 ambulatory Katia SAMUELS Facility:[facility] Start: 03-11-2023 End: 03-11-2023 Lab Drop off Katia SAMUELS [facility] Start: 03-11-2023 End: 03-11-2023 Patient encounter procedure Katia SAMUELS [facility] Start: 01-22-2023 Office outpatient vi sit 25 minutes Stanley Emerson Work Phone: [facility] 250 DO Work Phone: Start: 01-22-[address] Teo Stokes Facility:[facility] Start: 12-25-2022 End: 12-26-2022 ambulatory Katia SAMUELS Facility:[facility] Start: 12-25-2022 End: 12-25-2022 Patient encounter procedure Katia SAMUELS [facility] Start: 12-10-2022 End: 12-11-2022 ambulatory Katia SAMUELS Facility:[facility] Start: 12-10-2022 End: 12-10-2022 Lab Drop off Katia SAMUELS [facility] Start: 12-10-2022 End: 12-11-2022 ambulatory Katia SAMUELS Facility:[facility] Start: 12-10-2022 End: 12-10-2022 Patient encounter procedure Katia Isabel SAMUELS [facility] Start: 10-04-2022 End: 10-04-2022 Patient encounter procedure Katia R SAMUELS [facility] Start: 09-18-2022 End: 09-18-2022 Patient encounter procedure Katia R SAMUELS [facility] Start: 09-15-2022 End: 09-15-[address] STANLEY EMERSON . Facility: Start: 09-12-2022 End: 09-12-[address] STANLEY EMERSON . Facility:[facility] Start: 09-08-2022 Encounter for preprocedural laboratory examination CELIA RAMOS [facility] Start: 09-04-2022 End: 09-05-[address] STANLEY EMERSON . Facility:[facility] Start: 09-04-2022 Encounter for preprocedural cardiovascular examination DR KATIA SAMUELS . [facility] Start: 09-02-2022 End: 09-03-[address] STANLEY EMERSON . Facility:[facility] Start: 09-02-2022 End: 09-03-2022 Encounter for preprocedural laboratory examination DR STANLEY EMERSON . Facility:[facility] Start: 09-02-2022 End: 09-03-[address] STANLEY EMERSON . Facility:[facility] Start: 09-02-2022 End: 09-03-2022 Encounter for preprocedural cardiovascular examination DR STANLEY EMERSON . Facility:[facility] Start: 08-21-2022 End: 08-21-2022 ambulatory Carlene Kasper Other [facility] Other Start: 08-21-2022 Follow-up encounter Carlene Dickerson [facility] Start: 08-16-2022 End: 08-16-2022 ambulatory MD Stanley Emerson Work Phone: [facility] Work Phone: Start: 08-16-2022 End: 08-16-2022 Patient encounter procedure MD Stanley Emerson Work Phone: [facility] [place] Work Phone: Start: 07-31-2022 End: 07-31-2022 Patient encounter procedure Katia SAMUELS [facility] Start: 07-25-2022 End: 07-25-2022 ambulatory Margarito Valentine Other [facility] Other Start: 07-25-2022 Postop follow up vis it related to original px Margarito Valentine [facility] Start: 07-24-2022 End: 07-24-2022 ambulatory MD Stalney Emerson Work Phone: [facility] Work Phone: Start: 07-24-2022 End: 07-24-2022 Patient encounter procedure MD Stanley Emerson Work Phone: [facility] [place] Work Phone: Start: 07-02-2022 End: 07-03-2022 Evaluation and management of inpatient MD Stanley Emerosn Work Phone: [facility] Work Phone: Start: 06-21-2022 End: 06-21-2022 Patient encounter procedure MD Stanley Emerson Work Phone: [facility]-Pre-Surgical Testing Work Phone: Start: 06-19-2022 End: 06-19-2022 ambulatory Margarito Valentine Other [facility] [employer] Other Start: 06-19-2022 Office outpatient vi sit 25 minutes Margarito Valentine [facility] V[facility] Surgery Start: 06-12-2022 End: 06-12-2022 ambulatory MD Stanley Emerson Work Phone: [facility] Work Phone: Start: 06-12-2022 End: 06-12-2022 Patient encounter procedure MD Stanley Emerson Work Phone: [facility] [place] Work Phone: Start: 06-11-2022 End: 06-11-2022 Patient encounter procedure HEATHER SCHWAB [facility] Start: 06-06-2022 End: 06-06-2022 ambulatory Margarito Valentine Other [facility] [employer] Other Start: 06-06-2022 Office outpatient vi sit 25 minutes Margarito Valentine [facility] Start: 06-04-2022 End: 06-04-2022 ambulatory Celia Starkssaurav Other [facility] [employer] Other Start: 06-04-2022 Office outpatient vi sit 25 minutes Celia Ramos [facility] Start: 06-03-2022 Office outpatient vi sit 25 minutes Stanley Emerson Work Phone: [facility] 250 DO Work Phone: Start: 06-03-[address] Stanley Emerson Facility:[id number] Start: 05-21-[address] Stanley Emerson Facility:[id number] Start: 05-20-[address] Stanley Emerson Facility:[id number] Start: 05-19-[address] Teo Stokes Facility:[id number] Start: 05-18-[address] Teo Stokes Facility:[id number] Start: 05-17-[address] Stanley Emerson Facility:[id number] Start: 05-17-2022 Bradyarrhythmia MD Stanley billingsley Work Phone: [facility] Start: 05-17-[address] Teo Stokes Facility:[id number] Start: 05-16-2022 End: 05-22-2022 Encounter for preprocedural cardiovascular examination MD Stanley Emerson Work Phone: [facility] Start: 05-16-2022 End: 05-22-2022 Evaluation and management of inpatient MD Stanley Emerson Work Phone: [facility] [place] [facility] Work Phone: Start: 05-16-2022 End: 05-16-[address] STANLEY EMERSON . Facility: Start: 05-15-2022 End: 05-16-[address] STANLEY EMERSON . Facility: Start: 01-04-2022 End: 01-04-[address] STANLEY EMERSON . Facility: Patient encounter status [facility] Work Phone: End: 01-22-2023 Patient encounter status [facility] Rich [facility]ania [facility] Work Phone: Procedures Date Procedure Procedure Detail Performing Clinician Start: 10-03-2023 Flexible cystoscopy Roseamry SAMUELS Start: 08-18-2023 CT of abdomen and pe [...] Teo Stokes, Status: Pen, Time: 11:50 AM [facility] Work Phone: Start: 11-04-2023 ambulatory Ambulatory Facility:[facility] Start: 04-08-2023 Bacteria identified in Urine by Culture [facility] Start: 12-10-2022 FUV, Provider: Teo Stokes, Status: Pen, Time: 10:10 AM FUV, Provider: Teo Stokes, Status: Pen, Time: 10:10 [facility] Work Phone: Start: 07-24-2022 MR Abdomen WO and W contrast IV [facility] Start: 07-24-2022 MRI of abdomen with contrast MR abdomen wo/w con [facility] Start: 07-03-2022 [facility] Start: 07-02-2022 Fluoroscopy of Aorta and Bilateral Lower Extremity Arteries using Low Osmolar Contrast Fluoroscopy of Aorta and Bilateral Lower Extremity Arteries using Low Osmolar Contrast [facility] Start: 07-02-2022 Restriction of Abdominal Aorta with Intraluminal Device, Percutaneous Approach Restriction of Abdominal Aorta with Intraluminal Device, Percutaneous Approach [facility] Start: 05-22-2022 [facility] Start: 05-20-2022 Evaluation procedure [facility] Start: 05-19-2022 [facility] Start: 05-17-2022 End: 05-17-2022 [facility] Start: 05-16-2022 Referral to horseshoer [facility] Start: 05-16-2022 Referral to vascular surgeon [facility] Start: 05-16-2022 Hospital admission [facility] Patient Education [facility] Work Phone: Patient referral [facility] Work Phone: [facility] Immunizations Immunization Date Immunization Notes Care Provider Fa cility 03-29-2022 Pfizer COVID-19 Vac Bivalent 30 MCG/0.3ML Intramuscular Suspension Stanley Emerson Work Phone: [facility] 03-16-2022 influenza virus vacc ine, unspecified formulation Katia ARLENE [facility] 03-16-2022 influenza, seasonal, injectable Stanley Emerson Work Phone: [facility] 250 DO Work Phone: 03-06-2022 Fluzone High-Dose Quadrivalent 0.7 ML Intramuscular Suspension Prefilled Syringe Stanley Emerson Work Phone: [facility] 250 DO Work Phone: 03-06-2022 influenza virus vacc ine, unspecified formulation HEATHER SCHWAB [facility] 10-03-2021 Comirnaty 30 MCG/0.3 ML Intramuscular Suspension Stanley Emerson Work Phone: [facility] 250 DO Work Phone: 10-03-2021 COVID-19 mRNATaniya (Pfizer) MD Stanley Emerson Work Phone: [facility] 10-03-2021 SARS-CoV-2 mRNA (aoufzfodnki-odmf-owstkv e) vaccine HEATHER SCHWAB [facility] 04-23-2021 pneumococcal polysaccharide vaccine, 23 valent Peteludy Layla Idania Work Phone: [facility] 02-22-2021 influenza virus vacc ine, unspecified formulation Katia SAMUELS [facility] 02-22-2021 influenza, injectabl e, quadrivalent, preservative free Peteludy Rich [employer] Work Phone: [facility] 250 DO Work Phone: 02-21-2021 Pfizer-BioNTech COVI D-19 Vacc 30 MCG/0.3ML Intramuscular Suspension Stanley Rich [employer] Work Phone: [facility] Comment on above: Result Comment: 2022: [id number] 07-28-2020 Pfizer-BioNTech COVI D-19 Vacc 30 MCG/0.3ML Intramuscular Suspension Swipesenseludy Rich [employer] Work Phone: [facility] 07-07-2020 Pfizer-BioNTech COVI D-19 Vacc 30 MCG/0.3ML Intramuscular Suspension Swipesenseludy Layla [employer] Work Phone: [facility] 02-22-2020 influenza virus vacc ine, unspecified formulation HEATHER SCHWAB [facility] 02-22-2020 Seasonal, quadrivale nt, recombinant, injectable influenza vaccine, preservative free Stanley Rich [employer] Work Phone: [facility] 250 DO Work Phone: Payers Date Payer Category Payer Self-pay 2017 Medicare [id number] 1959 Medicare [id number] 1959 Private Health Insurance [id number] 1943 Unknown [id number] 2.16.840.1.980650.3.579.2.593 1943 Unknown [id number] 2.16840.1.830415.3.579.2.593 1943 Unknown [id number] 2.16.840.1.901340.3.579.2.593 1943 Unknown [id number] 2.16.840.1.382848.3.579.2.593 1943 Unknown [id number] 2.840.1.760127.3.579.2.593 1943 Unknown [id number] 2.840.1.274902.3.579.2.593 1943 Unknown [id number] 2..840.1.971283.3.579.2.593 1943 Unknown [id number] 2..840.1.837269.3.579.2.593 1943 Unknown [id number] 2..840.1.722599.3.579.2.356 1943 Unknown [id number] 2.16.840.1.880985.3.579.2.356 1943 Unknown [id number] .16.840.1.606315.3.579.2.356 1943 Unknown [id number] 2.16.840.1.242715.3.579.2.356 1943 Unknown [id number] 2..840.1.810929.3.579.2.356 1943 Unknown [id number] 2.16840.1.275155.3.579.2.356 -1944 Unknown [id number] 2.16.840.1.992943.3.579.2.356 -194 Unknown [id number] 2.16.840.1.906871.3.579.2.356 -194 Unknown [id number] 2.16.840.1.943037.3.579.2.125 9 -194 Unknown [id number] 2.16.840.1.685947.3.579.2.125 9 -194 Unknown [id number] 2.16.840.1.727998.3.579.2.125 9 -194 Unknown [id number] 2.16.840.1.899760.3.579.2.125 9 -194 Unknown [id number] 2.840.1.486239.3.579.2.727 1943 Unknown [id number] 2.16.840.1.307838.3.579.2.727 -194 Unknown [id number] 2.16.840.1.244263.3.579.2.727 194 Unknown [id number] 2.16.840.1.089284.3.579.2.727 194 Unknown [id number] 2.16840.1.668526.3.579.2.727 -194 Unknown [id number] 2.16.840.1.882656.3.579.2.727 -194 Unknown [id number] 2.16.840.1.431804.3.579.2.727 194 Unknown [id number] 2.16.840.1.791173.3.579.2.727 -194 Unknown [id number] 2.16.840.1.783188.3.579.2.727 1943 Unknown [id number] 2.16.840.1.851351.3.579.2.727 1943 Unknown [id number] 2.16.840.1.354512.3.579.2.727 1943 Unknown [id number] 2.16.840.1.917927.3.579.2.72 1943 Unknown [id number] 2.16.840.1.218432.3.579.2.727 1943 Unknown [id number] 2.16.840.1.311935.3.579.2.727 1943 Unknown [id number] 2.16.840.1.062284.3.579.2.727 Medicare Medicare Nonpatient [id number] Unknown Unknown [facility] [id number] Unknown [id number] 2.16.840.1.307157.3.579.2.531 Unknown [id number] 2.16.840.1.964690.3.579.2.531 Social History Date Type Detail Facility Daily caffeine consumption Daily caffeine consumption [facility] 250 DO Work Phone: Comment on above: 3-4 cups coffee kellen y; 05/17/23 quit; 1/2 dozen cigarettes ; Start: 06-11-2022 End: 03-11-2023 Tobacco smoking status Heavy tobacco smoker (finding) [facility] [place] Sex Assigned At Male [facility] Start: 05-17-2022 Tobacco smoking stat us NHIS Smoker (finding) [facility] Start: 1945 Sex Assigned At Male Tuan [facility] Start: 07-02-2022 End: 07-02-2022 Tobacco smoking status NHIS Ex-smoker (finding) [facility] Tobacco smoking status Never [facility] Medical Equipment Procedure Code Equipment Code Equipment Origin al Text Equipment Identifier Dates Percutaneous endovascular repair of abdominal aortic aneurysm (AAA) Abdominal aorta endovascular stent-graft [id number] FDA Start: 07-02-2022 Percutaneous endovascular repair of abdominal aortic aneurysm (AAA) Abdominal aorta endovascular stent-graft ()[id number] FDA Start: 07-02-2022 Percutaneous endovascular repair of abdominal aortic aneurysm (AAA) Abdominal aorta endovascular stent-graft ()[id number] FDA Start: 07-02-2022 Percutaneous endovascular repair of abdominal aortic aneurysm (AAA) Soft-tissue/mesh anchor, non-bioabsorbable ()[id number] FDA Start: 07-02-2022 Goals Date Patient Goal Desired Activity /State Functional Status Date Assessment Result Facility 10-03-2023 Functional Status N/A [facility] 06-30-2023 Functional Status N/A [facility] 06-10-2023 Functional Status N/A [facility] 03-11-2023 Functional Status N/A [facility] 12-10-2022 Functional Status N/A [facility] 09-18-2022 Functional Status N/A [facility] 07-31-2022 Functional Status N/A [facility] 07-03-2022 Functional status Patient at Baseline [facility] Work Phone: 06-11-2022 Functional Status N/A [facility] 05-16-2022 Functional status Patient Not at Baseline [facility] Work Phone: Mental Status Date Assessment Result Facility 07-03-2022 Cognitive function Cognitive Sta tus Patient at Baseline [facility] Work Phone: 05-16-2022 Cognitive function Cognitive Sta tus Patient at Baseline [facility] Work Phone: Clinical Notes 06-04-2022 to 10-03-2023 Note Date & Type Note Facility 10-03-2023 Hospital Discharg e instructions Patient Education 10/03/2023 14:19:12 Acute Urinary Retention, Male Acute Urinary Retention, [...] Follow these instructions at home: Medicines Take hfso-mfy-wtcbjhx and prescription medicines only as told by [...] provider. Document Revised: 01/31/2021 Document Reviewed: 01/31/2021 [employer] Patient Education 2022 [email or web address]. Follow Up Care 08/15/2023 11:04:15 With:ARLENE CASILLAS, Katia Hall, URL Address: [facility] [address] , [place] [address]- [phone] When: Unknown [facility] [place] 06-30-2023 Hospital Discharg e instructions Patient Education [...] Follow these instructions at home: Medicines Take kpxd-zzg-moufkun and prescription medicines only as told by [...] provider. Document Revised: 01/31/2021 Document Reviewed: 01/31/2021 [employer] Patient Education 2022 [email or web address]. Follow Up Care 05/06/2023 11:11:29 With:Katia SAMUELS MD, URL Address: [facility] [address], [place] [address]- [phone] When: Unknown Comments:1 day for catheter removal [facility] 06-10-2023 Note [id number] [facility] 06-10-2023 Hospital Discharg e instructions Patient [...] cotton underwear to absorb moisture and keep snuff drier. 6. Keep the drainage bag below [...] With:Katia SAMUELS Address: [facility] [address] , [place] [address]- Business (1) When:06/24/2023 15:15:55 Comments:for zapien removal [facility] 06-10-2023 Note Custom Rezum Post-Procedure [...] using a circul (more content not included)... [facility] 05-06-2023 Evaluation note Encounter Date Diagnosis Assessment Notes Apr, Primary hypertension (ICD-10 - I10) [facility] Other [id number] Evaluation note* Encounter Date Diagnosis Assessment Notes [...] supplement. I asked the patient to continue jcub-hbd-kyevyei iron supplement once or twice daily Mar, Primary hypertension (ICD-10 - I10) BP is elevated. Will start Norvasc 5 mg PO daily. i asked the patient to monitor Bp closely with tapering steroid dose [facility] Other 10-17-2023 Hospital Discharge instructions Patient Education [...] including vitamins, herbs, eye drops, creams, and viku-uhk-ucxtykt medicines. Any problems you or family members [...] provider tells you to take them. Taking aisj-bzj-ayxhgxm medicines, vitamins, herbs, and supplements. Surgery safety [...] provider. Document Revised: 02/05/2022 Document Reviewed: 02/05/2022 [employer] Patient Education 2022 [email or web address]. 03/11/2023 14:15:06 Benign Prostatic Hyperplasia Benign Prostatic [...] urethra. Follow these instructions at home: Take cxnw-qcs-xjgizfk and prescription medicines only as told by [...] provider. Document Revised: 11/28/2021 Document Reviewed: 11/28/2021 [employer] Patient Education 2022 [email or web address]. Follow Up Care 02/07/2023 16:01:50 With:ARLENE CASILLAS, Katia Hall, URL Address: [facility] [address] , [place] [address]- When:Within 3 Month(s) Comments:Sched cysto/FISH/Cytol/BT check [facility] 10-17-2023 Evaluation + Plan note Diagnostic Tests Pending * UroVysion Fish and Urine Cyto ([facility]) 03/11/23 [facility]08-15-2023 Note [id number]:127[facility] 12-10-2022 Evaluation + Plan note Diagnostic Tests Pending * UroVysion Fish and Urine Cyto ([facility]) 12/10/22 [facility]07-18-2023 Hospital Discharge instructions Patient Education [...] if anything looks unusual. Men with a wjexeq-aali-rdkcsc risk for skin cancer may want to see a skin drier (associate merchant) for an annual body check. What are the benefits of screening? Cancer screening is done to look for cancer in the very early stages, before it spreads and becomesharder to treat and before you would start to notice symptoms. Finding cancer early improves the chances of successful treatment. It may save your life. Where to find more information [place] [employer]: www.cancer.org Centers for Disease Control and Prevention: www.cdc.gov National Cancer [place]: www.cancer.gov Contact a health care provider if: [...] provider. Document Revised: 10/08/2021 Document Reviewed: 04/07/2020 [employer] Patient Education 2022 [email or web address]. Follow Up Care 11/15/2022 14:27:10 With:ARLENE CASILLAS, Katia Hall, URL Address: [facility] [address] , [place] [address]- When: Unknown [facility] [...] cells. Follow these instructions at home: Take dqzu-kqv-vlotiln and prescription medicines only as told by [...] is important. Where to find more information [place] [employer] (ACS): cancer.org National Cancer [place] (NCI): cancer.gov Contact a health care provider [...] provider. Document Revised: 04/22/2022 Document Reviewed: 04/22/2022 [employer] Patient Education 2022 [email or web address]. Follow Up Care 08/26/2022 14:12:46 With:ARLENE CASILLAS, Katia Hall, URL Address: [facility] [address] , [place] [address]- When: Unknown [facility] 04-10-2023 NoteEXAM: XR CHEST 2 V HISTORY: Pre-surgery evaluation COMPARISON: None. TECHNIQUE: PA and lateral views of the chest. FINDINGS: The cardiomediastinal silhouette is normal. No focal consolidation is identified. There is no pneumothorax. No pleural effusion is noted. The osseous structures are intact. IMPRESSION: No acute cardiopulmonary process. Electronically authenticated by: CORKY FORD Date: 2022-09-02 14:17[facility]03-29-2023 Evaluation note* Encounter Date Diagnosis Assessment Notes [...] have his bladder tumor removal as scheduled. [facility] Other 03-08-2023 Evaluation + Plan note Diagnostic Tests Pending * UroVysion Fish and Urine Cyto ([facility]) 07/31/22 [facility] 03-08-2023 Hospital Discharge instructions Patient Education 07/31/2022 [...] including vitamins, herbs, eye drops, creams, and gwyy-ysw-xhslsev medicines. Any problems you or family members [...] provider tells you to take them. Taking suhh-jvf-hhvgnat medicines, vitamins, herbs, and supplements. Tests You [...] 03/08/2010 Document Revised: 12/11/2018 Document Reviewed: 12/11/2018 [employer] Patient Education 2020 [email or web address]. Follow Up Care 07/25/2022 10:56:51 With:ARLENE CASILLAS, Katia Hall, URL Address: [facility] [address] , [place] [address]- When: Unknown [facility] 03-02-2023 Evaluation note* Encounter Date Diagnosis Assessment [...] some bladder issues. I did call the [employer] Document Preparation. The device is compatible up to 3 Maggi for MRI. I explained this to the family and the patient. Jul, Other specified postprocedural states (ICD-10 - Z98.890) Jul, Personal history of other diseases of the circulatory system (ICD-10 - Z86.79) [facility] note* Encounter Date Diagnosis Assessment Notes [...] plan to do this percutaneously under MAC. [facility] Other 01-17-2023 Hospital Discharge instructions Patient Education [...] including vitamins, herbs, eye drops, creams, and zjtc-zgf-rlzwzxi medicines. Any problems you or family members [...] provider tells you to take them. ?Taking dbwh-yhu-ykkpbti medicines, vitamins, herbs, and supplements. Follow instructions [...] Follow these instructions at home: Medicines Take qpvj-ofx-camdsjx and prescription medicines only as told by [...] 05/09/2001 Document Revised: 05/04/2019 Document Reviewed: 05/04/2019 [employer] Patient Education 2020 [employer] Follow Up Care 05/22/2022 13:37:28 With:[facility] Address: [address] [place] [address] Business (1) When: Unknown Comments:our operating room scheduler will be contacting you for follow-up [facility] 01-12-2023 Evaluation note* Encounter Date Diagnosis Assessment [...] to proceed all his questions were addressed. [facility] Other 01-10-2023 Evaluation note* Encounter Date Diagnosis [...] (ICD-10 - E78.5) Patient is on statin [facility] Other Evaluation + Plan note No data available for this section [facility] evaluation + Plan note Future Appointments Appointment Date:10/04/2022 10:00:00 AM Scheduled Provider: Location:[facility] Appointment Type:URO Nurse Visit [facility] Evaluation + Plan note Future Appointments Appointment Date:06/16/2023 10:00:00 AM Scheduled Provider: Location:[facility] Appointment Type:URO Nurse Visit Appointment Date:06/30/2023 01:30:00 PM Scheduled Provider:Katia SAMUELS MD Location:[facility] Appointment Type:URO Office Visit Diagnostic Tests Pending * UroVysion Fish and Urine Cyto ([facility]) [facility] Future App[facility]ments Appointment Date:06/30/2023 01:30:00 PM Scheduled Provider:Katia SAMUELS MD Location:[facility] Appointment Type:URO Office Visit [facility] evaluation + Plan note Future Appointments Appointment Date:07/01/2023 08:30:00 AM Scheduled Provider: Location:[facility] Appointment Type:URO Nurse Visit [facility] evaluation + Plan note Future Appointments Appointment Date:09/09/2023 02:15:00 PM Scheduled Provider:Katia SAMUELS MD Location:[facility] Appointment Type:URO Procedure 15 min [facility] Evaluation + Plan note Future Appointments Appointment Date:10/07/2023 02:45:00 PM Scheduled Provider:Katia SAMUELS MD Location:[facility] Appointment Type:URO Procedure 15 min [facility] Evaluation + Plan note Future Appointments Appointment Date:10/31/2023 11:00:00 AM Scheduled Provider: Location:[facility] Appointment Type:URO Nurse Visit [facility] Evaluation + Plan note Future Appointments Appointment Date:10/31/2023 11:00:00 AM Scheduled Provider: Location:[facility] Appointment Type:URO Nurse Visit Diagnostic Tests Pending * UroVysion Fish and Urine Cyto ([facility]) [facility]03[facility] Future App[facility]ments Appointment Date:11/04/2023 10:30:00 AM Scheduled Provider: Location[facility] [place] Appointment Type:URO Nurse Visit [facility] evaluation note* Diagnosis Onset Date Resolution Status [...] acute Vitamin B 12 deficiency acut e [facility] Work Phone: Evaluation noteNo assessment information available [facility] Work Phone: [email or web address] noteNo InformationNort [employer] Other Hiswyng general Narrative - Reported* Type Description Date [...] INJ URY, 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, 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 [facility] Other history general Narrative - Reported* Type [...] INJ URY, 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, 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 [facility] Other history general Narrative - Reported* Type Description Date Medical History ACUTE KIDNEY INJURY Medical History OBSTRUCTIVE UROPATHY Medical History PRE-OPERATIVE CARDIO VASCULAR EXAMINATION, BRADYARRHYTHMIA Medical History BILATERAL HYDRONEPHROSIS Medical History BLADDER MASS Medical History AAA (ABDOMINAL AORTIC ANEURYSM) Medical History TOBACCO ABUSE Medical History DEMENTIA Medical History SUNDOWN Medical History VITAMIN B 12 DEFICIENCY Medical History FOLIC ACID DEFICIENCY Surgical History KIDNEY STONE REMOVED Surgical History EVAR Surgical History TURBT, CYSTOSCOPY 09/12/2022 Surgical History CYSTOSCOPY 07/30/2022 Surgical History STENT OVER AORTIC ANEURYSM 07/15 22 Hospitalization History ACUTE KIDNEY INJ URY, 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, 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 Hospitalization History SEE ABOVE [facility] Other Hospital Discharge instructions No data available for this section [facility] note No data available for this section [facility] Family History No Family History [...] I71.4 1 YR F/U AAA[place] [facility] [place] Chief Complaint * ALEX [...] section and content) DATE CREATED AUTHOR 05/12/2021 [facility] dical Specialist DATE CREATED AUTHOR AUTHOR'S ORGANIZ ATION 09/23/2022 [facility] DATE CREATED AUTHOR AUTHOR'S ORGANIZ ATION 01/23/2023 [facility] DATE CREATED AUTHOR AUTHOR'S ORGANIZ ATION 01/23/2023 [employer] DATE CREATED AUTHOR AUTHOR'S ORGANIZ ATION 08/22/2023 [facility] DATE CREATED AUTHOR AUTHOR'S ORGANIZ ATION 10/07/2023 [facility] d[facility] Specialists EPIC DATE CREATED AUTHOR AUTHOR'S ORGANIZ ATION 10/08/2023 [facility] DATE CREATED AUTHOR AUTHOR'S ORGANIZ ATION 10/13/2023 [facility] Patient Care team informatio n (unrecognized [...] Active Celia Ramos MD Attending Provider Active eTo Stokes MD Referring Provider Active Team Status: [...] week f/u EVAR4 WK FOLLOW UP; [facility] 08/16/22RENAL 6 month Follow upBPREFILL Goals [...] BE BASED ON THE PRIMARY CLINICAL RECORDS. [facility] [employer] provides no warranty or guarantee of the accuracy or completeness of information in this document.
[2023-10-16 09:04] LABS: Hematocrit 41.3 % (42.0-54.0); Hemoglobin 13.3 g/dL (14.0-18.0); Mean Corpuscular HGB Conc 32.2 g/dL (29.9-35.2); Mean Corpuscular Hemoglobin 27.8 pg (25.9-34.0); Mean Corpuscular Volume 86.2 fL (80.0-94.0); Mean Platelet Volume 10.1 fL (9.5-13.5); Platelet Count 197 10^3/uL (150-450); Red Blood Count 4.79 10^6/uL (4.70-6.10); Red Cell Distribution Width 15.4 % (11.0-15.0); White Blood Count 9.3 10^3/uL (4.0-11.0)
[2023-10-16 11:08] LABS: Magnesium 2.1 mg/dL (1.8-2.4); Phosphorus 2.7 mg/dL (2.6-4.7); Uric Acid 5.9 mg/dL (3.5-7.2)
== END 2023-10-16 08:40 | disposition home or self-care (01) ==
LOC: LAB 08:40
PROVIDERS: PCP Family Medicine; Visit Provider Internal Medicine Nephrology
DX: N13.30 Unspecified hydronephrosis (principal); N17.9 Acute kidney failure, unspecified; N18.32 Chronic kidney disease, stage 3b; I71.40 Abdominal aortic aneurysm, without rupture, unspecified; E78.5 Hyperlipidemia, unspecified
CPT/HCPCS: 36415; 83735; 84100; 84550; 85027

== ENCOUNTER 2023-11-07 09:42 | Outpatient (REF) | payer MEDICARE, OTHER, SELFPAY ==
[2023-11-07 15:51] LABS: C. Difficile PCR NEGATIVE (NEGATIVE)
== END 2023-11-07 09:43 | disposition home or self-care (01) ==
LOC: LAB 09:42
PROVIDERS: PCP Family Medicine; Visit Provider Family Medicine
DX: R19.7 Diarrhea, unspecified (principal)
CPT/HCPCS: 87493

== ENCOUNTER 2023-11-28 16:08 | Emergency (ER) | payer MEDICARE, OTHER, SELFPAY ==
[2023-11-28 16:19] VITALS: BP 124/69; PULSE 89; TEMP 37; O2SAT 96; BMI 28.9
--- NOTE | 2023-11-28 16:24 | ED.GENADUL1 ---
HPI HPI - General Adult General Chief complaint: Urogenital-Male Stated complaint: FOLLEY COMPLICATION Time Seen by Provider: 11/28/23 16:19 Source: patient Mode of arrival: walk-in Limitations: no limitations History of Present Illness HPI narrative: Patient is a 77-year-old male well-known to this emergency department with a chronic indwelling Villarreal catheter. His brought him to the emergency department today because they noted leaking from the catheter 2 hours ago. Patient does not have any blood clots and states his urine is draining well. He has no abdominal pain, spasms. He was on oxybutynin previously for bladder spasms but was taken off of that medication due to hallucinations. He has not had any blood in his urine. He has no focal medical complaints otherwise. Related Data Home Medications ?Medication ?Instructions ?Recorded ?Confirmed albuterol sulfate 90 mcg/actuation 1 inh inhalation Q6H PRN 04/13/23 11/28/23 aerosol inhaler bronchospasm aspirin 81 mg tablet,delayed 81 mg PO DAILY 04/13/23 11/28/23 release (Ecotrin Low Strength) metoprolol tartrate 50 mg tablet 50 mg PO Q12H 04/13/23 11/28/23 simvastatin 20 mg tablet 20 mg PO DAILY 04/13/23 11/28/23 amlodipine 5 mg tablet 5 mg PO DAILY 07/30/23 11/28/23 spironolactone 25 mg tablet 25 mg PO DAILY 09/26/23 11/28/23 Allergies Allergy/AdvReac Type Severity Reaction Status Date / Time No Known Drug Allergies Allergy Verified 09/26/23 20:49 Opioid HPI Opioid Management Most Recent Opioid Data: Last Pain Scale 8 07/30/23 22:37 Review of Systems ROS Constitutional Denies: fever or chills Ears, nose, mouth, and throat Denies: throat pain or nasal congestion Respiratory Denies: shortness of breath Gastrointestinal Denies: abdominal pain, nausea or vomiting Musculoskeletal Denies: back pain Integumentary/Breast Denies: rash Hematologic/Lymphatic Denies: easy bruising or easy bleeding PFSH PFSH Social History Smoking status: Current every day smoker Exam Narrative Exam Narrative: Gen.: Awake, alert, in no distress Head: Normocephalic, atraumatic ENT: Moist mucous membranes Respiratory: No respiratory distress, lungs clear bilaterally Cardio: Regular rate and rhythm Gastrointestinal: Abdomen is soft, nondistended and nontender to palpation : Villarreal catheter in place, yellow urine draining easily into leg bag Extremities: Moves extremities equally Psych: Normal mood and affect Neuro: No focal neuro deficit Skin: Warm, dry, intact Constitutional Vital Signs, click to edit/add: Last Vital Signs Temp 98.6 F 11/28/23 16:19 Pulse 89 11/28/23 16:19 Resp 16 11/28/23 16:19 BP 124/69 11/28/23 16:19 Pulse Ox 96 11/28/23 16:19 O2 Del Method Room Air 11/28/23 16:19 Course Vital Signs Vital signs: Vital Signs Temperature 98.6 F 11/28/23 16:19 Pulse Rate 89 11/28/23 16:19 Respiratory Rate 16 11/28/23 16:19 Blood Pressure 124/69 11/28/23 16:19 Pulse Oximetry 96 11/28/23 16:19 Oxygen Delivery Method Room Air 11/28/23 16:19 Temperature 98.6 F 11/28/23 16:19 Pulse Rate 89 11/28/23 16:19 Respiratory Rate 16 11/28/23 16:19 Blood Pressure 124/69 11/28/23 16:19 Pulse Oximetry 96 11/28/23 16:19 Oxygen Delivery Method Room Air 11/28/23 16:19 Medical Decision Making MDM Narrative Medical decision making narrative: Patient was found to have leaking from the urethral meatus. He is not able to take an antispasmodic due to her history of hallucinations secondary to oxybutynin. Villarreal catheter was replaced, balloon inflated to 16 mL. Patient will be discharged home to follow-up with urology on Friday as scheduled. Return to the ER If symptoms change or worsen SUPERVISED APC VISIT, PHYSICIAN ATTESTATION: Based on the medical record the care appears appropriate. ? Medical Records Medical records reviewed: Yes I reviewed the patient's medical records Lab Data Lab results reviewed: Yes I reviewed the patient's lab results Discharge Plan Discharge Stand Alone Forms: Portal Instructions Chief Complaint: Urogenital-Male Clinical Impression: Complication of Villarreal catheter Patient Disposition: Home, Self-Care Time of Disposition Decision: 17:14 Condition: Good Prescriptions / Home Meds: No Action albuterol sulfate 90 mcg/actuation HFA aerosol inhaler 1 inh INHALATION Q6H PRN (Reason: bronchospasm) metoprolol tartrate 50 mg tablet 50 mg PO Q12H simvastatin 20 mg tablet 20 mg PO DAILY Hold Instructions: while taking ATBs aspirin [Ecotrin Low Strength] 81 mg tablet,delayed release (DR/EC) 81 mg PO DAILY amlodipine 5 mg tablet 5 mg PO DAILY spironolactone 25 mg tablet 25 mg PO DAILY Print Language: Guamanian Instructions: Villarreal Catheter Placement and Care (ED) Additional Instructions: Follow up with the urology office on Friday as scheduled Referrals: NICHOLAS EMERSON [Primary Care Provider] - 1 week
--- OUTSIDE RECORDS SUMMARY | 2023-11-28 16:50 | XMS_ITS | CCD ---
Author Organization [facility] Care Team Providers Care Neonatal Specialist Name Role Phone Stanley Emerson Unavailable Unavailable Unavailable STANLEY EMERSON Primary Care Physician Unavail able MD Stanley Emerson Primary Care Provider MD Taz Barnes Admit Provider MD Margarito Valentine Other Provider MD Janice Gonzalez Other Provider DO Bernabe Cr Attending Provider MD Margarito Valentine Attending Provider [phone] MD Margarito Valentine Admit Provider [phone] Celia Ramos Unavailable Margarito Valentine Unavailable MOMO Schwab Attending Provider MD Stanley Emerson Primary Care Provider [phone] MD Taz Barnes Admit Provider MD Margarito Valentine Other Provider MD Janice Gonzalez Other Provider DO Bernabe Cr Attending Provider MD Margarito Valentine Attending Provider [phone] MD Margarito Valentine Admit Provider MOMO Schwab Attending Provider Ranjith Carlene Unavailable HEMEYER ., DR PETERSON Primary [...] Dr. Stanley Mercado Primary Care Unava ilable Idania, Dr. Stanley Mercado Primary Care Unava ilable Divya, Dr. Teo Poon Attending Araceli vailable Divya, Dr. Teo Poon Attending Araceli vailadiana Emerson, Dr. Stanley Mercado Primary Care MD Stanley Little Primary Care Provider [phone] MD Celia Ramos Attending Provider MD Teo Stokes Referring Provider [phone] MD Stanley Emerson Primary Care Provider MD Margarito Valentine Attending Provider Margarito Valentine Admitting UnavailMargarito Lara Attending Unavailabl e Stanley Emerson Primary Care Unavailable Teo Stokes Referring Unavailable Stanley Emerson Primary Care Unavailable Celia Ramos Admitting Unavailable Celia Ramos Attending Unavailable Orzech, Blanca X Attending Unavailable SAMUELS, Katia R Admitting Unavailable [...] Attending Unavailable SAMUELS, Katia R Attending Unavailable Orzech, Blanca X Attending Unavailable SAMUELS, Katia R Attending Unavailable SAMUELS, Katia R Attending Unavailable SAMUELS, Katia R Admitting Unavailable SAMUELS, Katia R Attending Unavailable SAMUELS, Katia R Referring Unavailable HEMEJOSE CRUZ, STANLEY Rich Attending Unavailable STANLEY EMERSON Attending Unavailable HEMEJOSE CRUZ, STANLEY Rich Attending Unavailable SAMUELS, KATIA Hall Referring Unavailable HEMEJOSE CRUZ, STANLEY Rich Attending Unavailable STANLEY EMERSON Attending Unavailable Allergies Allergy Classification Reported Allergen(s) Allergy Type Date of Onset Reaction(s) Facility Unclassified (2 sources) No Known Medication Allergies; Translations: [No Known Medication Allergies] Propensity to adverse reactions (disorder) [facility] Repository Medications Current Medications Medication Drug [...] take 1 tablet by mouth every hour [place] 325 mg-7.5 mg oral tablet 1 tab(s), Oral, Once, 1 tab(s), Refill(s) 0, Take 1 hour prior to procedure, [facility]/pharmacy #[id number], 187, cm, 03/11/23 13:44:00 EDT, Height/Length Dosing, 93, kg, 03/11/23 13:44:00 EDT, Weight Dosing Start Date: 05/06/23 Status: Ordered [id number] 200 actuat albuterol 0.09 mg/actuat metered dose inhaler (20 sources) beta2-Adrenergic Agonist Start: 10-22-2023 take 1 puff(s) by inhalation every six hours Albuterol Sulfate Active 2 PUFF INHALATION Every 6 hours October 22, 2023 12:00am Start: 06-03-2022 Albuterol Sulf ate HFA 108 (90 Base) MCG/ACT Inhalation Aerosol Solution Quantity: 54 Refills: 0 Ordered: 03-Jun-2022 DO Start : 03-Jun-2022 Active Start: 05-16-2022 End: 10-22-2023 take 1 puff(s) by inhalation three times daily Albuterol Sulfate Discontinued 2 PUFF INHALATION Three times daily May 16, 2022 1:00am October 22, 2023 11:04am take 2 puff(s) by in halation every [...] 1 Refills: 0 Ordered: 22-Jan-2023 DO Active Albuterol (Eqv-ProAir HFA) 90 mcg/inh inhalation aerosol (18 sources) Start: 06-10-2022 Albuterol (Eqv-ProAir HFA) 90 mcg/inh inhalation aerosol Refill(s) 0 Start Date: 06/10/22 Status: Ordered amLODIPine 5 mg oral tablet (13 sources) Dihydropyridine Calcium Channel Alfredito Start: 06-10-2023 take 5 mg by mouth twice daily Amlodipine Active 5 MG PO Twice daily October 22, 2023 12:00am Start: 04-15-2023 take 1 tablet by charlene th every twelve hours Norvasc 5 MG 1 tablet Orally bid for 90 days Mar, Active Start: 04-15-2023 take 1 tablet by charlene th every twenty-four hours Norvasc 5 MG 1 tablet Orally Once a day for 90 days Mar, Active aspirin 81 mg delayed release oral tablet (13 sources) Platelet Aggregation Inhibitor, Nonsteroidal Anti-inflammatory Drug Start: 10-22-2023 Aspirin (Adult Lo w Dose Aspirin) 81 mg tablet,delayed release (DR/EC) Active 81 MG PO Daily October 22, 2023 12:00am Start: 01-22-2023 take 1 tablet by charlene th once daily Aspirin 81 MG Oral Tablet Delayed Release TAKE 1 TABLET DAILY. Quantity: 90 Refills: 3 Ordered: 22-Jan-2023 Teo Stokes MD Start : 22-Jan-2023 Active Start: 05-16-2022 End: 06-21-2022 take 81 mg by mouth once daily Aspirin Discontinued 81 MG PO Daily May 16, 2022 1:00am June 21, 2022 11:01am cephalexin 500 mg oral capsule (4 sources) Cephalosporin Antibacterial Start: 10-03-2023 take 1 mg by mouth every twelve hours Keflex 500 mg Cap mg cap(s), Oral, q12hr, Refills(s) 0 Start Date: 10/03/23 Status: Ordered ferrous sulfate 159 mg extended release oral tablet (5 sources) Start: 10-22-2023 take 142 mg by mouth once daily Ferrous Sulfate Active 142 MG PO Daily October 22, 2023 12:00am take 1 tablet by charlene th every twenty-four hours Ferrous Sulfate 325 (65 Fe) MG 1 tablet Orally once a day Active Metoprolol (20 sources) beta-Adrenergic Alfredito Start: 06-10-2022 Metopr olol tartrate 50 mg Tab Refills(s) 0 Start Date: 06/10/22 Status: Ordered Start: 05-16-2022 take 50 mg by mouth twice kellen y Metoprolol Tartrate Active 50 MG PO Twice daily May 16, 2022 1:00am Multivitamin preparation (20 sources) Start: 10-22-2023 take 1 tablet by mouth once daily Multivitamin Active 1 TAB PO Daily October 22, 2023 12:00am Start: 07-31-2022 multivitamin D aily, Refill(s) 0 Start Date: 07/31/22 Status: Ordered Multivitamin Act raji 24 hr oxybutynin chloride 10 mg extended release oral tablet (1 source) Cholinergic Muscarinic Antagonist Start: 06-11-2023 take 1 tablet by mouth once daily oxybutynin 10 mg ER Tab 10 mg = 1 tab(s), Oral, Daily, # 14 tab(s), Refills(s) 0, Pharmacy: [facility]/pharmacy #[id number], 187, cm, 06/10/23 13:43:00 [...] Status: Ordered spironolactone 25 mg oral tablet (5 sources) Aldosterone Antagonist Start: 10-03-2023 take 25 mg by mouth once daily Spironolactone Active 25 MG PO Daily October 22, 2023 12:00am Completed/Discontinued Medications Medication Drug Class(es) Dates Sig (Normalized) Sig (Original) ciprofloxacin 250 mg oral tablet (6 sources) Quinolone Antimicrobial Start: 12-03-2022 take 1 tablet by mouth once daily Cipro 250 mg Tab 250 mg = 1 tab(s), Oral, Daily, Take 1 tablet the day before the procedure and 1 tablet after the procedure, # 6 tab(s), Refills(s) 0, Pharmacy: [facility]/pharmacy #[id number], 187, cm, 09/18/22 14:39:00 EDT, Height/Length Dosing, 93, kg, 09/18/22 14:39:00 EDT, Weight Dosing Start Date: 12/03/22 Status: Ordered Start: 07-25-2022 take 1 tablet by charlene once daily Cipro 250 mg Tab 250 mg = 1 tab(s), Oral, Daily, Take 1 tablet the day before the procedure and 1 tablet after the procedure, # 2 tab(s), Refills(s) 0, Pharmacy: [facility]/pharmacy #[id number], 187, cm, 06/11/22 9:11:00 EST, Height/Length Dosing, 93.5, kg, 06/11/22 9:11:00 EST, W... Start Date: 07/25/22 Status: Ordered folic acid 1 mg oral tablet (20 sources) Start: 05-22-2022 folic acid 1 m g Tab Refills(s) 0 Start Date: 06/10/22 Status: Ordered Start: 05-22-2022 End: 10-22-2023 take 1000 ug by mouth once daily at bedtime Folic Acid Discontinued 1000 MCG PO Daily at bedtime June 21, 2022 11:02am October 22, 2023 11:05am Multi Vitamin Oral Tablet (1 source) take 1 tablet by mouth once daily Multi Vitamin Oral Tablet TAKE 1 TABLET DAILY. Quantity: 0 Refills: 0 Ordered: 22-Jan-2023 DO Active vitamin b12 1 mg oral capsule (19 sources) Vitamin B12 Start: 05-22-2022 End: 10-22-2023 take 1000 ug by mouth once daily at bedtime Cyanocobalamin (Vitamin B-12) Discontinued 1000 MCG PO Daily at bedtime June 21, 2022 11:02am October 22, 2023 11:04am Cyanocobalamin 1 000 MCG as directed Orally Active take 1 tablet by mouth once kellen y B-12 1000 MCG Oral Tablet TAKE 1 TABLET DAILY DIRECTED. Quantity: 0 Refills: 0 Ordered: 03-Jun-2022 DO Active water 1000 mg/ml irrigation solution (4 sources) Start: 10-03-2023 sterile water irrigation solution See Instructions, 500 mL, Refill(s) 1, Irrigate zapien catheter as needed with 60 cc sterile water, [facility]/pharmacy #[id number], 187, cm, 10/03/23 14:11:00 EDT, [...] bladder] Onset: 06-11-2022 Episodic Cancer of bladder (19 sources) Malignant tumor of urinary bladder; Translations: [Malignant neoplasm of bladder, unspecified] Onset: 09-18-2022 Chronic Cancer of bladder (4 sources) History of malignant neoplasm of bladder; Translations: [Personal history of malignant neoplasm of bladder] Onset: 12-10-2022 Episodic Cancer; other and unspecified primary (14 sources) H/O: malignant neoplasm 12-10-2022 Episodic Chronic kidney disease (13 sources) Chronic kidney disease stage 3B ; Translations: [Chronic kidney disease, stage 3b] Onset: 09-04-2022 09-18-2023 Chronic Chronic kidney disease (4 sources) Chronic kidney disease; Translations: [CHRONIC KIDNEY DISEASE STAGE 3B] Onset: 09-10-2022 Chronic obstructive pulmonary disease and bronchiectasis (17 sources) Pulmonary emphysema; Translations: [Simple chronic bronchitis] Onset: 09-23-2022 09-11-2022 Chronic Complication of device; implant or graft (1 source) Other mechanical complication of indwelling urethral catheter, initial encounter; Translations: [OTH MECH CMP INDWELL URETH CATH INT] Onset: 09-16-2022 Episodic Deficiency and other anemia (1 source) Anemia; Translations: [Anemia, unspecified] 10-22-2023 Episodic Deficiency and other anemia (1 source) Anemia, unspecified; Translations: [Anemia, unspecified] 10-22-2023 Episodic Delirium, dementia, and amnestic and other [...] unspecified] Onset: 06-10-2022 Episodic Hyperplasia of prostate (19 sources) Benign prostatic hypertrophy with outflow obstruction; Translations: [Benign prostatic hyperplasia with lower urinary tract symptoms] Onset: 12-10-2022 Chronic Hypertension with complications and secondary hypertension (3 sources) Hypertensive chronic kidney disease with stage 1 through stage 4 chronic kidney disease, or unspecified chronic kidney disease; Translations: [Hypertensive renal disease] Onset: 09-08-2022 10-04-2023 Chronic Late effects of cerebrovascular disease (1 [...] 05-22-2022 Episodic Other aftercare (1 source) 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; Translations: [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 SMOKE INSPECTOR CURRENT DRUG THERAPY] Onset: 09-23-2022 Episodic Other aftercare (1 source) senior living (current) use of anticoagulants; Translations: [SNF CURRNT USE ANTICOAGULANTS] Onset: 09-08-2022 Episodic Other and ill-defined cerebrovascular disease (18 sources) Cerebral ischemia Onset: 05-16-2022 06-10-2022 Chronic [...] diseases of bladder and urethra (17 sources) Lesion of bladder 07-31-2022 Chronic Other diseases of bladder and urethra (1 source) Diverticulum of bladder; Translations: [DIVERTICULUM OF BLADDER] Onset: 09-23-2022 Chronic Other diseases of bladder and urethra (1 source) Bladder disorder, unspecified; Translations: [BLADDER DISORDER UNSPECIFIED] Onset: 09-08-2022 Chronic Other diseases of kidney and ureters (20 sources) Hydroureter; Translations: [Hydroureter] Onset: 06-11-2022 Episodic Other diseases of kidney and ureters (2 sources) Disorder of kidney and/or ureter; Translations: [Disorder of kidney and ureter, unspecified] Onset: 06-11-2022 Episodic Other diseases of kidney and ureters (18 sources) Hydronephrosis 06-10-2022 Episodic Other diseases of kidney and ureters (18 sources) Kidney lesion 06-11-2022 Episodic Other diseases of kidney and ureters (10 sources) Bilateral hydronephrosis ; Translations: [Unspecified hydronephrosis] 05-22-2022 Episodic Other diseases of kidney and ureters (1 source) Urinary tract obstruction; Translations: [Other obstructive and reflux uropathy] Onset: 06-10-2023 Episodic Other diseases of kidney and ureters (1 source) Obstructive nephropathy; Translations: [Other obstructive and reflux uropathy] 10-04-2023 Episodic Other diseases of kidney and ureters (1 source) Other obstructive and reflux uropathy; Translations: [Other specified disorders of kidney and ureter] 10-22-2023 Episodic Other diseases of veins and lymphatics (1 source) Venous insufficiency (chronic) (peripheral); Translations: [VENOUS INSUFF CHRONIC PERIPHERAL] Onset: 09-23-2022 Episodic Other gastrointestinal disorders (8 sources) Diarrhea; Translations: [Diarrhea, unspecified] 05-16-2022 Episodic Other injuries and conditions due to external causes (5 sources) Foreign body in bladder; Translations: [Foreign body in bladder, initial encounter] Onset: 10-03-2023 Episodic Other nervous system disorders (8 sources) 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; Translations: [Circadian rhythm sleep disorder, unspecified type] 05-20-2022 Chronic Other nervous system disorders (8 sources) Metabolic encephalopathy; Translations: [Metabolic encephalopathy] 05-16-2022 [...] ADULT] Onset: 09-23-2022 Episodic Residual codes; unclassified (10 sources) Tobacco user; Translations: [Tobacco use] 05-22-2022 Episodic Residual codes; unclassified (4 sources) Tobacco use; Translations: [Tobacco use disorder] 05-22-2022 Episodic Residual codes; unclassified (3 sources) Other specified postprocedural states; Translations: [Other postprocedural status] Onset: 09-16-2022 Episodic Residual codes; unclassified (1 source) History of cardiovascular surgery; Translations: [Other specified postprocedural states] 09-18-2023 Episodic Screening and history of mental health and substance abuse codes (3 sources) Ex-smoker; Translations: [Personal history of tobacco use] Onset: 09-23-2022 Episodic Comment on above: 05/17/23 quit; Substance-related disorders (2 sources) Nicotine dependence, cigarettes, uncomplicated; Translations: [Smoker] Onset: 04-16-2023 Chronic Comment on above: 1/2 dozen cigarettes ; Transient cerebral ischemia (15 sources) Transient cerebral ischemia; Translations: [Unspecified transient [...] rupture, unspecified] Onset: 08-18-2023 Urinary tract infections (13 sources) Urinary tract infectious disease; Translations: [Urinary [...] Onset: 05-23-2022 Episodic Other aftercare (1 source) 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; Translations: [SNF 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] Onset: 05-22-2022 Episodic [...] Test Name Value Interpretation Reference Range Facility Ambulatory Visit Summaryon 0 11-04-2023 Ambulatory Visit Summary ALEX ANDERSON :1945 Visit Date:11/04/2023 Ambulatory Visit Instructions Your Diagnosis Urinary retention Your Care Team Attending Physician - TC Boles APRN, [place] X Primary Care Physician - IDANIA CASILLAS, STANLEY [...] to do next Scheduled Follow-Up Appointments Friday 11:00 AM EDT With: TC Boles APRN, [place] X Where: [facility] Eva Normal [facility] Erythrocyte distribution wid th Auto (RBC) [Ratio]on 10-16-2023 Erythrocyte distribution width (RBC) [Ratio] 15.4 % 11.0-15.0 [facility] Hematocrit Auto (Bld) [Volum e fraction]on 10-16-2023 Hematocrit (Bld) [Volume fraction] 41.3 % 42.0-54.0 [facility] Hemoglobin [Mass/volume] in Bloodon 10-16-2023 Hemoglobin (Bld) [Mass/Vol] 13.3 g/dL 14.0-18.0 [facility] Laboratory - Chemistry and C hemistry - challengeon 10-16-2023 Magnesium [Mass/Vol] 2.1 mg/dL 1.8-2.4 [facility] Urate [Mass/Vol] 5.9 mg/dL 3.5-7.[address] [facility] Leukocytes [#/volume] correc phil for nucleated erythrocytes in Blood by Automated counon 10-16-2023 WBC corrected for nucl RBC Auto (Bld) [#/Vol] 9.3 10 3/uL 4.0-11.0 [facility] MCH Auto (RBC) [Entitic mass ]on 10-16-2023 MCH (RBC) [Entitic mass] 27.8 pg 25.9-34.0 [facility] MCHC Auto (RBC) [Mass/Vol]on 10-16-2023 MCHC (RBC) [Mass/Vol] 32.2 g/dL 29.9-35.2 [facility] MCV Auto (RBC) [Entitic vol] on 10-16-2023 MCV (RBC) [Entitic vol] 86.2 fL 80.0-94.0 [facility] No Panel Informationon 10-15 Phosphorus Level 2.7 mg/dL 2.6-4.[address] [facility] Platelet mean volume Auto (B ld) [Entitic vol]on 10-16-2023 Platelet mean volume (Bld) [Entitic vol] 10.1 fL 9.5-13.5 [facility] Platelets Auto (Bld) [#/Vol] on 10-16-2023 Platelets (Bld) [#/Vol] 197 10 3/uL 150-450 [facility] RBC Auto (Bld) [#/Vol]on RBC (Bld) [#/Vol] 4.79 10 6/uL 4.70-6.10 [facility] UroVysion Fish and Urine Cyt o ([facility])on 10-10-2023 [facility] UC Diagnosis Info Invalid Interpretation Code [facility] Comment on above: Result Comment: A:Ur [...] on: 10/10/2023 11:17:43 Performed By: #### 1 [id number] #### [facility] Laboratory [address] [place] [address] Consent for Procedure/Surger yon 10-08-2023 Consent for Procedure/Surgery [id number]#1.00TIFF Normal [facility] Ambulatory Visit Summaryon 0 10-07-2023 Ambulatory [...] to do next Scheduled Follow-Up Appointments Friday. 2023 10:30 AM EDT Where: [facility] Ambulatory Visit Summaryon 0 10-03-2023 Ambulatory Visit [...] [facility] [address], [place] [address]- [phone] Medications What How Much When Instructions Unchanged [...] is inserted (more content not included)... Normal [facility] Health Recordson 2023 [facility] [id number]#1.00TIFF Normal [facility] Patient Educationon 10-03-19 Patient Education Urology [...] these instructions at home: Medicines ? Take [id number]-etdlnak and prescription medicines only as told by [...] provider. Document Revised: 01/31/2021 Document Reviewed: 01/31/2021 [employer] Patient Education ? 2022 [employer] Normal [facility] UroVysion Fish and Urine Cyt o ([facility])on 10-03-2023 [facility] Method of Extraction Bladder Wash Normal [facility] Comment on above: Performed By: #### 1 [id number] #### [facility] [address] [place] [address] [facility] Number of Jars 1 Invalid Interpretation Code [facility] Comment on above: Performed By: #### 1 [id number] #### [facility] [address] [place] [address] [facility] Specimen Urine Normal [facility] Comment on above: Performed By: #### 1 [id number] #### [facility] [address] [place] [address] [facility] Type of Service Technical Only Normal [facility] Comment on above: Performed By: #### 1 [id number] #### [facility] [address] [place] [address] Urology Office/Clinic Noteon 10-03-2023 Urology Office/Clinic Note [...] Urinary retention (R33.9: Retention of urine, unspecified) [facility] ER on 09/15/22 due to catheter clogged. [...] with Zapien. Most recently, pt presented to [facility] ER 09/29/23 and 09/30/23 due to catheter [...] for findings. Follow-up With When Contact Information ARLENE CASILLAS, Katia Hall, [facility] [address], [place] [address] [phone] Additional Instructions: Cysto/FISH/cytol in 6 mos & monthly zapien changes Patient Education Acute Urinary Retention, Male I, Na Gerardo, personally scribed for Dr. Samuels on 10/03/2023 14:19:40. Documentation recorded by the scribNa paniagua, accurately reflects the services(s) I performed and decisions made by me. Authenticated by Dr. Samuels on 10/03/2023 14:24:28.14:19:40. Problem List/Past Medical History Ongoing Abdominal aortic aneurysm Acute kidney failure Bladder cancer Bladder mass Bladder stones BPH with uri (more content not included)... Normal [facility] Comment on above: Result Comment: Elec tronically Signed By: Katia SAMUELS MD\.br\Date and Time Signed: 10/03/23 14:24 EDT\.br\Electronically Co-Signed By: Na Gerardo.br\Date and Time Co-Signed: 10/03/23 14:19 EDT ED Note-Physicianon 10-02-19 ED Note-Physician [id number]#[id number] Normal [facility] CT abdomen pelvis wo conon 0 08-18-2023 CT abdomen pelvis wo con [facility] [place] [address] [place] [address] CT Scan Report Signed Patient: Alex Anderson MR#: [id number] 38 : 1945 Acct:[id number] Age/Sex: 77 / M ADM Date: 08/18/23 Loc: CT Room: Type: [facility] Attending Dr: Margarito Valentine MD Copies to: [...] aneurysm suboptimally evaluated without IV contrast. The cherokee aneurysmal sac has decreased in size now [...] aortic aneurysm with interval decrease of the cherokee aneurysmal sac since the prior CTA study. The stent is suboptimally evaluated due to lack of IV contrast. 2. Prostatomegaly with Zapien catheter in place. There appears to be urinary bladder wall thickening and inflammatory changes suspicious for cystitis. Correlation with urinalysis is recommended. Impression dictated by: Rogelio Agustin Jr., D.O.08/18/2023 3:18 PM Dictation Location: [place] [address] Transcribed By: [facility] 08/18/23 1518 Dictated By: Rogelio Agustin Jr, DO 08/18/23 1503 Signed By: 08/18/23 1518 [facility] Creatinine (Bld) [Mass/Vol]O rdered By: Margarito Valentine on 08-18-2023 Creatinine [Mass/Vol] 2.4 mg/dL 0.6-1.3 [facility] Comment on above: ER/ESD physician is notified/shown all ISTAT results.Critical values may be confirmed by laboratory testing ifdeemed necessary by ER attending doctor. ISTAT XRay CREon 08-18-2023 Creatinine [Mass/Vol] 2.4 mg/dL High 0.6-1.3 [facility] Comment on above: Result Comment: ER/E SD physician is notified/shown all ISTAT results. Critical values may be confirmed by laboratory testing if deemed necessary by ER attending doctor. Performed By: #### V [id number], MANDI, B12, MG, PHOS, CMP, FOL, FE and TIBC, URIC #### [facility] [address] [place] [address] ISTAT GFR 26.776 [facility] Comment on above: Result Comment: PERF ORMED BY: [place] [address] PATHOLOGIST DISASTER DIRECTOR OREN OWEN M.D. Performed By: #### V [id number], MANDI, B12, MG, PHOS, CMP, FOL, FE and TIBC, URIC #### [facility] [address] No Panel InformationOrdered By: Margarito Valentine on 08-18-2023 Bedside Estimated GFR (eGFR) 26.776 [facility] ED Note-Physicianon 08-07-19 ED Note-Physician [id number]#1.00TIFF Normal [facility] ED Note-Physicianon 08-06-19 ED Note-Physician [id number]#[id number] Normal [facility] ED Note-Physician [id number]#1.00TIFF Normal [facility] ED Note-Physician [id number]#1.00TIFF Normal [facility] Lab Reportson 08-06-2023 Lab Reports [id number]#1.00TIFF Normal [facility] Lab Reports [id number]#[id number] [facility] Reminderson 08-01-2023 Reminders - From: Dana Rivas To: [facility] - Recalls Samuels; Cc: Dana Rivas; Sent: 03/14/2023 08:18:18 EDT Show up: 07/25/2023 08:18:00 EST Subject: cysto/fish/cytol Due Date/Time: 08/11/2023 08:18:00 EDT Reminder/Recall Patient is due in August 2023 for 3 month cysto/fish/cytol Patient sched for 09/09/23 in [place] office. he will be due in November 2023.LG Normal [facility] Physician Orderon 07-04-2023 Physician Order [id number]#1.00TIFF [facility] Patient Educationon 06-30-19 Patient Education [...] these instructions at home: Medicines ? Take ofsb-uwd-cavcykq and prescription medicines only as told by [...] provider. Document Revised: 01/31/2021 Document Reviewed: 01/31/2021 Setup Patient Education ? 2022 [employer] [facility] Urology Office/Clinic Noteon 06-30-2023 Urology Office/Clinic Note Chief Complaint f/u to Keylajalen HPI Staff F/u to Keylaradha done 06/10/23. Dx: hx of bladder cancer, [...] Urinary retention (R33.9: Retention of urine, unspecified) [facility] ER on 09/15/22 due to catheter clogged. [...] [facility] [address], [place] [address]- [phone] Additional Instructions: 1 day for catheter removal [...] (more content not included)... Normal [facility] Comment on above: Result Comment: Elec tronically Signed By: ARLENE CASILLAS, Katia Hall\.br\Date and Time Signed: 06/30/23 14:32 EST\.br\Electronically Co-Signed By: Apple Escoto\.br\Date and Time Co-Signed: 06/30/23 14:30 EST [facility] Fish and Urine Cyt o ([facility])on 06-26-2023 [facility] Revision Information Invalid Interpretation Code [facility] Comment on above: Result Comment: Brayan ection Reason -[ Fredi Stephen, 06/26/23 - 10:32 ] Corrected report issued to update PMS/PWS. The diagnosis remains unchanged. Correction Notes - Performed By: #### 1 [id number] #### [facility] [address] [place] [address] Ambulatory Visit Summaryon 0 06-16-2023 Ambulatory Visit Summary ALEX ANDERSON :1945 Visit Date:06/16/2023 Ambulatory Visit Instructions Your Diagnosis BPH with urinary obstruction Your Care Team Attending Physician - ARLENE CASILLAS, Katia Hall Primary Care Physician - IDANIA CASILLAS, STANLEY Rich This Is Your Medications List acetaminophen-hydrocodone ([place] 325 mg-7.5 mg oral tablet) albuterol (Albuterol [...] Katia SAMUELS MD Where: [facility] Consent for Procedure/Surger yon 06-10-2023 Consent for Procedure/Surgery [id number]#1.00TIFF [facility] Consent for Treatmenton 05-26 Consent for Treatment [id number]#1.00TIFF [facility] IntraOperative Documentson 0 06-10-2023 IntraOperative Documents [id number]#1.00TIFF [facility] Main OR Intraoperative Recor don 06-10-2023 Main OR Intraoperative Record IntraOp Document Type FTURO Summary Primary Physician: Katia SAMUELS MD Finalized Date/Time: 06/10/23 15:18:46 Pt. Name: ALEX ANDERSON/Sex: 1945 Male Med Rec #: [id number] Physician: Katia SAMUELS MD Financial #: [id number] Pt. Type: O Room/Bed: / Admit/Disch: 06/10/23 12:50:19 - Institution: Case Times FTURO Entry 1 Patient Times In Room 06/10/23 14:32:00 Out Room 06/10/23 15:13:00 Procedure Times Start 06/10/23 14:40:00 Stop 06/10/23 15:07:00 Anesthesia Times Last Modified By: Cliffrod RN, Gayatri GOSS 06/10/23 15:07:12 Case Attendance FTURO Entry 1 Entry 2 Entry 3 Case Attendee ARLENE CASILLAS, Katia Horton RN, CNOR, Kathleen Lai Role Performed Surgeon - Primary Paper Sales Representative - Primary Scrub - Primary Time In 06/10/23 14:32:00 06/10/23 14:32:00 06/10/23 14:32:00 Time Out 06/10/23 15:13:00 06/10/23 15:13:00 06/10/23 15:13:00 Procedure CYSTOSCOPY LOCAL CYSTOSCOPY LOCAL CYSTOSCOPY LOCAL REZUM(.) REZUM(.) REZUM(.) Comments marlene piña supervisor customer complaint service in room orienting Last Modified By: Clifford CHAN, CNOR, Clifford CHAN, CNOR, Clifford CHAN, CNOR, Gayatri 06/10/23 Gayatri 06/10/23 Gayatri 06/10/23 [...] Verified Availability Equipment, Medication Time Out Katia ASMUELS MD, Verified (If Participants Clifford CHAN, KATEOR, [...] 15:07 WOLFGANG Horton RN, Ruthann 06/10/23 15:18 [facility] Main OR Preoperative Recordo n 06-10-2023 Main OR Preoperative Record Holding Area Document Type FTURO Summary Primary Physician: Katia SAMUELS MD Finalized Date/Time: 06/10/23 14:49:26 Pt. Name: ALEX ANDERSON.O.B./Sex: 1945 Male Med Rec #: [id number] Physician: Katia SAMUELS MD Financial #: [id number] Pt. Type: O Room/Bed: / Admit/Disch: 06/10/23 [...] GLASSES; BILATERAL Limitations: UP AD JOSIAH. 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 Normal [facility] Comment on above: Result Comment: Elec [...] coverage, Follow up arranged. Normal [facility] Comment on above: Result Comment: Elec tronically Signed By: ARLENE CASILLAS, Katia Fall.gonsalo\Date and Time Signed: 06/10/23 15:20 EST [facility] Fish and Urine Cyt o ([facility])on 06-10-2023 [facility] Method of Extraction Catheterized Normal [facility] Comment on above: Performed By: #### 1 [id number] #### [facility] [address] [place] [address] [facility] Number of Jars 1 Invalid Interpretation Code [facility] Comment on above: Performed By: #### 1 [id number] #### [facility] [address] [place] [address] [facility] Specimen Urine Normal [facility] Comment on above: Performed By: #### 1 [id number] #### [facility] [address] [place] [address] [facility] Type of Service Technical Only Normal [facility] Comment on above: Performed By: #### 1 [id number] #### [facility] [address] [place] [address] Alanine aminotransferase [En zymatic activity/volume] in Serum or PlasmaOrdered By: Celia Ramos on 04-08-2023 ALT [Catalytic activity/Vol] 17 U/L 7-52 [facility] Albumin [Mass/volume] in Ser um or Plasma by Bromocresol green (BCG) dye binding methoOrdered By: Celia Ramos on 04-08-2023 Albumin BCG dye [Mass/Vol] 4.2 g/dL 3.5-5.7 [facility] Alkaline phosphatase [Enzyma tic activity/volume] in Serum or PlasmaOrdered By: Celia Ramos on 04-08-2023 ALP [Catalytic activity/Vol] 72 U/L 34-104 [facility] Aspartate aminotransferase [ Enzymatic activity/volume] in Serum or PlasmaOrdered By: Celia Ramos on 04-08-2023 AST [Catalytic activity/Vol] 16 U/L 13-39 [facility] Automated erythrocytes count in urine sediment (number/area)Ordered By: Celia Ramos on 04-08-2023 RBC Auto (Urine sed) [#/Area] 3-4 [HPF] 0-4 [facility] Automated leukocytes count i n urine sediment (number/area)Ordered By: Celia Ramos on 04-08-2023 WBC Auto (Urine sed) [#/Area] 50-100 [HPF] 0-4 [facility] Bilirubin Test strip Ql (U)O rdered By: Celia Ramos on 04-08-2023 Bilirubin Ql (U) Negative Negative [facility] Bilirubin.total [Mass/volume ] in Serum or PlasmaOrdered By: Celia Ramos on 04-08-2023 Bilirubin [Mass/Vol] 0.5 mg/dL 0.3-1.0 [facility] Calcium [Mass/volume] in Ser um or PlasmaOrdered By: Celia Ramos on 04-08-2023 Calcium [Mass/Vol] 9.3 mg/dL 8.6-10.3 [facility] Carbon dioxide, total [Moles /volume] in Serum or PlasmaOrdered By: Celia Ramos on 04-08-2023 CO2 [Moles/Vol] 31.6 mmol/L 21.0-31.[address] [facility] Chloride [Moles/volume] in S marium or PlasmaOrdered By: Celia Ramos on 04-08-2023 Chloride [Moles/Vol] 107 mmol/L 98-107 [facility] Cholesterol [Mass/volume] in Serum or PlasmaOrdered By: Teo Stokes on 04-08-2023 Cholesterol [Mass/Vol] 107 mg/dL 140-200 [facility] Comment on above: Chol less than 200 m g/dl low riskChol 201-239 mg/dl borderline riskChol 240 mg/dl and greater high risk Cholesterol in LDL Calc [Mas s/Vol]Ordered By: Teo Stokes on 04-08-2023 Cholesterol in LDL [Mass/Vol] 47 mg/dL 0-100 [facility] Comment on above: LDL ATP III CLASSIFI CATIONLDL less than 100 mg/dL OptimalLDL 100-129 mg/dL Near or above optimalLDL 130-159 mg/dL Borderline highLDL 160-189 mg/dL HighLDL greater than 189 mg/dL Very high Cholesterol in VLDL Calc [Ma ss/Vol]Ordered By: Teo Stokes on 04-08-2023 Cholesterol in VLDL [Mass/Vol] 26 mg/dL [facility] Color Auto (U)Ordered By: Jonh Ramos on 04-08-2023 Color (U) Yellow Yellow [facility] Comprehensive Metabolic Pane howard 04-08-2023 Albumin [Mass/Vol] 4.2 g/dL Normal 3.5-5.7 [facility] Comment on above: Order Comment: Reaso n for Exam Acute kidney injury;Chronic kidney disease, stage 3b;Bilater Performed By: #### V [id number], MANDI, B12, MG, PHOS, CMP, FOL, FE and TIBC, URIC #### [facility] [address] Albumin/Globulin [Mass ratio] 1.5 {ratio} Normal [facility] Comment on above: Order Comment: Reaso n for Exam Acute kidney injury;Chronic kidney disease, stage 3b;Bilater Performed By: #### V [id number], MANDI, B12, MG, PHOS, CMP, FOL, FE and TIBC, URIC #### [address] ALP [Catalytic activity/Vol] 72 U/L Normal 34-104 [facility] Comment on above: Order Comment: Reaso n for Exam Acute kidney injury;Chronic kidney disease, stage 3b;Bilater Performed By: #### V [id number], MANDI, B12, MG, PHOS, CMP, FOL, FE and TIBC, URIC #### [facility] [address] ALT [Catalytic activity/Vol] 17 U/L Normal 7-52 [facility] Comment on above: Order Comment: Reaso n for Exam Acute kidney injury;Chronic kidney disease, stage 3b;Bilater Performed By: #### V [id number], MANDI, B12, MG, PHOS, CMP, FOL, FE and TIBC, URIC #### [address] Anion gap [Moles/Vol] 8.9 mmol/L Normal 6.0-15.0 [facility] Comment on above: Order Comment: Reaso n for Exam Acute kidney injury;Chronic kidney disease, stage 3b;Bilater Performed By: #### V [id number], MANDI, B12, MG, PHOS, CMP, FOL, FE and TIBC, URIC #### [facility] [address] [place] [address] AST [Catalytic activity/Vol] 16 U/L Normal 13-39 [facility] Comment on above: Order Comment: Reaso n for Exam Acute kidney injury;Chronic kidney disease, stage 3b;Bilater Performed By: #### V [id number], MANDI, B12, MG, PHOS, CMP, FOL, FE and TIBC, URIC #### [address] Bilirubin [Mass/Vol] 0.5 mg/dL Normal 0.3-1.0 [facility] Comment on above: Order Comment: Reaso n for Exam Acute kidney injury;Chronic kidney disease, stage 3b;Bilater Performed By: #### V [id number], MANDI, B12, MG, PHOS, CMP, FOL, FE and TIBC, URIC #### [address] [place] [address] [place] Calcium [Mass/Vol] 9.3 mg/dL Normal 8.6-10.3 [facility] Comment on above: Order Comment: Reaso n for Exam Acute kidney injury;Chronic kidney disease, stage 3b;Bilater Performed By: #### V [id number], MANDI, B12, MG, PHOS, CMP, FOL, FE and TIBC, URIC #### [facility] [address] Chloride [Moles/Vol] 107 mmol/L Normal 98-107 [facility] Comment on above: Order Comment: Reaso n for Exam Acute kidney injury;Chronic kidney disease, stage 3b;Bilater Performed By: #### V [id number], MANDI, B12, MG, PHOS, CMP, FOL, FE and TIBC, URIC #### [facility] [address] CO2 [Moles/Vol] 31.6 mmol/L High 21.0-31.[address] [facility] Comment on above: Order Comment: Reaso n for Exam Acute kidney injury;Chronic kidney disease, stage 3b;Bilater Performed By: #### V [id number], MANDI, B12, MG, PHOS, CMP, FOL, FE and TIBC, URIC #### [facility] [address] [place] [address] Creatinine [Mass/Vol] 1.41 mg/dL High 0.70-1.30 [facility] Comment on above: Order Comment: Reaso n for Exam Acute kidney injury;Chronic kidney disease, stage 3b;Bilater Performed By: #### V [id number], MANDI, B12, MG, PHOS, CMP, FOL, FE and TIBC, URIC #### [facility] [address] [place] [address] [place] GFR/1.73 sq M.predicted MDRD (S/P/Bld) [Vol rate/Area] 50.692 mL/min/{1.73_m2} Normal [facility] Comment on above: Order Comment: Reaso n for Exam Acute kidney injury;Chronic kidney disease, stage 3b;Bilater Performed By: #### V [id number], MANDI, B12, MG, PHOS, CMP, FOL, FE and TIBC, URIC #### [facility] [address] Globulin (S) [Mass/Vol] 2.8 g/dL Normal [facility] Comment on above: Order Comment: Reaso n for Exam Acute kidney injury;Chronic kidney disease, stage 3b;Bilater Performed By: #### V [id number], MANDI, B12, MG, PHOS, CMP, FOL, FE and TIBC, URIC #### [facility] [address] Glucose [Mass/Vol] 107 mg/dL High 70-100 [facility] Comment on above: Order Comment: Reaso n for Exam Acute kidney injury;Chronic kidney disease, stage 3b;Bilater Result Comment: [facility] Glucose Reference Range is dependent on time and content of last meal. Glucose of more than 200 mg/dL in a nonstressed, ambulatory subject supports the diagnosis of Diabetes Mellitus. ADA recommended reference range Performed By: #### V [id number], MANDI, B12, MG, PHOS, CMP, FOL, FE and TIBC, URIC #### [facility] [address] Potassium [Moles/Vol] 4.5 mmol/L Normal 3.5-5.1 [facility] Comment on above: Order Comment: Reaso n for Exam Acute kidney injury;Chronic kidney disease, stage 3b;Bilater Performed By: #### V [id number], MANDI, B12, MG, PHOS, CMP, FOL, FE and TIBC, URIC #### [facility] [address] Protein [Mass/Vol] 7.0 g/dL Normal 6.4-8.9 [facility] Comment on above: Order Comment: Reaso n for Exam Acute kidney injury;Chronic kidney disease, stage 3b;Bilater Performed By: #### V [id number], MANDI, B12, MG, PHOS, CMP, FOL, FE and TIBC, URIC #### [facility] [address] Sodium [Moles/Vol] 143 mmol/L Normal 136-145 [facility] Comment on above: Order Comment: Reaso n for Exam Acute kidney injury;Chronic kidney disease, stage 3b;Bilater Performed By: #### V [id number], MANDI, B12, MG, PHOS, CMP, FOL, FE and TIBC, URIC #### [facility] [address] Urea nitrogen [Mass/Vol] 27 mg/dL High 7-25 [facility] Comment on above: Order Comment: Reaso n for Exam Acute kidney injury;Chronic kidney disease, stage 3b;Bilater Performed By: #### V [id number], MANDI, B12, MG, PHOS, CMP, FOL, FE and TIBC, URIC #### [facility] [address] Creatinine [Mass/volume] in Serum or PlasmaOrdered By: Celia Ramos on 04-08-2023 Creatinine [Mass/Vol] 1.41 mg/dL 0.70-1.30 [facility] Creatinine [Mass/volume] in UrineOrdered By: Celia Ramos on 04-08-2023 Creatinine (U) [Mass/Vol] 90.0 mg/dL 14.0-26.0 [facility] Dipstick and Microscopicon 1 06-08-2022 Appearance (U) Cloudy Critically abnormal Clear [facility] Comment on above: Order Comment: Reaso n for Exam Acute kidney injury;Chronic kidney disease, stage 3b;Bilater Performed By: #### V [id number], MANDI, B12, MG, PHOS, CMP, FOL, FE and TIBC, URIC #### [facility] [address] [place] [address] [place] Bacteria,Urine 4+ High None Seen [facility] Comment on above: Order Comment: Reaso n for Exam Acute kidney injury;Chronic kidney disease, stage 3b;Bilater Performed By: #### V [id number], MANDI, B12, MG, PHOS, CMP, FOL, FE and TIBC, URIC #### [facility] [address] [place] [address] [place] Bilirubin,Urine Negative Normal Negative [facility] Comment on above: Order Comment: Reaso n for Exam Acute kidney injury;Chronic kidney disease, stage 3b;Bilater Performed By: #### V [id number], MANDI, B12, MG, PHOS, CMP, FOL, FE and TIBC, URIC #### [facility] [address] Color (U) Yellow Normal Yellow [facility] Comment on above: Order Comment: Reaso n for Exam Acute kidney injury;Chronic kidney disease, stage 3b;Bilater Performed By: #### V [id number], MANDI, B12, MG, PHOS, CMP, FOL, FE and TIBC, URIC #### [facility] [address] Glucose Ql (U) Normal Normal Normal [facility] Comment on above: Order Comment: Reaso n for Exam Acute kidney injury;Chronic kidney disease, stage 3b;Bilater Performed By: #### V [id number], MANDI, B12, MG, PHOS, CMP, FOL, FE and TIBC, URIC #### [facility] [address] Hyaline Casts,Urine 9-19 High 0-8 [facility] Comment on above: Order Comment: Reaso n for Exam Acute kidney injury;Chronic kidney disease, stage 3b;Bilater Result Comment: PERF ORMED BY: [place] [address] PATHOLOGIST DISASTER DIRECTOR OREN OWEN M.D. Performed By: #### V [id number], MANDI, B12, MG, PHOS, CMP, FOL, FE and TIBC, URIC #### [facility] [address] Ketones Ql (U) Negative Normal Negative [facility] Comment on above: Order Comment: Reaso n for Exam Acute kidney injury;Chronic kidney disease, stage 3b;Bilater Performed By: #### V [id number], MANDI, B12, MG, PHOS, CMP, FOL, FE and TIBC, URIC #### [facility] [address] [place] [address] Leukocyte esterase Test strip Ql (U) 4+ High Negative [facility] Comment on above: Order Comment: Reaso n for Exam Acute kidney injury;Chronic kidney disease, stage 3b;Bilater Performed By: #### V [id number], MANDI, B12, MG, PHOS, CMP, FOL, FE and TIBC, URIC #### [facility] [address] Nitrite,Urine Positive High Negative [facility] Comment on above: Order Comment: Reaso n for Exam Acute kidney injury;Chronic kidney disease, stage 3b;Bilater Performed By: #### V [id number], MANDI, B12, MG, PHOS, CMP, FOL, FE and TIBC, URIC #### [facility] [address] Occult Blood,Urine 1+ High Negative [facility] Comment on above: Order Comment: Reaso n for Exam Acute kidney injury;Chronic kidney disease, stage 3b;Bilater Result Comment: PERF ORMED BY: [place] [address] PATHOLOGIST DISASTER DIRECTOR OREN OWEN M.D. Performed By: #### V [id number], MANDI, B12, MG, PHOS, CMP, FOL, FE and TIBC, URIC #### [facility] [address] pH (U) 7.0 [pH] Normal 5.0-9.0 [facility] Comment on above: Order Comment: Reaso n for Exam Acute kidney injury;Chronic kidney disease, stage 3b;Bilater Performed By: #### V [id number], MANDI, B12, MG, PHOS, CMP, FOL, FE and TIBC, URIC #### [facility] [address] Protein,Urine Trace High Negative [facility] Comment on above: Order Comment: Reaso n for Exam Acute kidney injury;Chronic kidney disease, stage 3b;Bilater Performed By: #### V [id number], MANDI, B12, MG, PHOS, CMP, FOL, FE and TIBC, URIC #### [facility] [address] RBC,Urine 3-4 Normal 0-4 [facility] Comment on above: Order Comment: Reaso n for Exam Acute kidney injury;Chronic kidney disease, stage 3b;Bilater Performed By: #### V [id number], MANDI, B12, MG, PHOS, CMP, FOL, FE and TIBC, URIC #### [facility] [address] Specificy [place],Urine 1.017 Normal 1.00 1-1.03 0 [facility] Comment on above: Order Comment: Reaso n for Exam Acute kidney injury;Chronic kidney disease, stage 3b;Bilater Performed By: #### V [id number], MANDI, B12, MG, PHOS, CMP, FOL, FE and TIBC, URIC #### [facility] [address] Squamous Epithelial Cell,Urine 0-1 Normal 0-2 [facility] Comment on above: Order Comment: Reaso n for Exam Acute kidney injury;Chronic kidney disease, stage 3b;Bilater Performed By: #### V [id number], MANDI, B12, MG, PHOS, CMP, FOL, FE and TIBC, URIC #### [facility] [address] Urobilinogen,Urine Normal Normal Normal [facility] Comment on above: Order Comment: Reaso n for Exam Acute kidney injury;Chronic kidney disease, stage 3b;Bilater Performed By: #### V [id number], MANDI, B12, MG, PHOS, CMP, FOL, FE and TIBC, URIC #### [facility] [address] [place] [address] WBC,Urine 50-100 High 0-4 [facility] Comment on above: Order Comment: Reaso n for Exam Acute kidney injury;Chronic kidney disease, stage 3b;Bilater Performed By: #### V [id number], MANDI, B12, MG, PHOS, CMP, FOL, FE and TIBC, URIC #### [facility] [address] [place] [address] Erythrocyte distribution wid th Auto (RBC) [Ratio]Ordered By: Celia Ramos on 04-08-2023 Erythrocyte distribution width (RBC) [Ratio] 15.7 % 12.0-14.8 [facility] Ferritinon 04-08-2023 Ferritin [Mass/Vol] 34.1 ng/mL Normal 23.9-336.2 [facility] Comment on above: Order Comment: Reaso n for Exam Acute kidney injury;Chronic kidney disease, stage 3b;Bilater Performed By: #### V [id number], MANDI, B12, MG, PHOS, CMP, FOL, FE and TIBC, URIC #### [facility] [address] [place] [id number] [facility] Ferritin [Mass/volume] in Se rum or PlasmaOrdered By: Celia Ramos on 04-08-2023 Ferritin [Mass/Vol] 34.1 ng/mL 23.9-336.2 [facility] Folateon 04-08-2023 Folate 34.0 ng/mL Normal >5.9 [facility] Comment on above: Order Comment: Reaso n for Exam Acute kidney injury;Chronic kidney disease, stage 3b;Bilater Result Comment: Caryn te reference range: >5.9 ng/ml The WHO technical consultation on folate and vitamin b12 deficiencies has determined that folate concentrations less than 4 ng/ml are considered deficient. Performed By: #### V [id number], MANDI, B12, MG, PHOS, CMP, FOL, FE and TIBC, URIC #### [facility] [address] [place] [address] [facility] Folate [Mass/volume] in Seru m or PlasmaOrdered By: Celia Ramos on 04-08-2023 Folate [Mass/Vol] 34.0 ng/mL >5.9 [facility] Comment on above: Folate reference ran ge: >5.9 ng/mlThe WHO technical consultation on folate and vitamin [id number] has determined that folate concentrations lessthan 4 ng/ml are considered deficient. Globulin Calc (S) [Mass/Vol] Ordered By: Celia Ramos on 04-08-2023 Globulin (S) [Mass/Vol] 2.8 g/dL [facility] Glucose [Mass/volume] in Ser um or PlasmaOrdered By: Celia Ramos on 04-08-2023 Glucose [Mass/Vol] 107 mg/dL 70-100 [facility] Comment on above: ADA recommended refe rence rangeRandom Glucose Reference Range is dependent on time and content of last meal. Glucose of more than 200 mg/dL in a nonstressed, ambulatory subject supports the diagnosis of Diabetes Mellitus. Hematocrit Auto (Bld) [Volum e fraction]Ordered By: Celia Ramos on 04-08-2023 Hematocrit (Bld) [Volume fraction] 43.8 % 38.8-50.0 [facility] Hemoglobin [Mass/volume] in BloodOrdered By: Celia Ramos on 04-08-2023 Hemoglobin (Bld) [Mass/Vol] 14.3 g/dL 13.0-17.0 [facility] Hemogram CBC Without Diffon 04-08-2023 Erythrocyte distribution width (RBC) [Ratio] 15.7 % High 12.0-14.8 [facility] Comment on above: Order Comment: Reaso n for Exam Acute kidney injury;Chronic kidney disease, stage 3b;Bilater Performed By: #### V [id number], MANDI, B12, MG, PHOS, CMP, FOL, FE and TIBC, URIC #### [facility] [address] Hematocrit (Bld) [Volume fraction] 43.8 % Normal 38.8-50.0 [facility] Comment on above: Order Comment: Reaso n for Exam Acute kidney injury;Chronic kidney disease, stage 3b;Bilater Performed By: #### V [id number], MANDI, B12, MG, PHOS, CMP, FOL, FE and TIBC, URIC #### [facility] [address] Hemoglobin (Bld) [Mass/Vol] 14.3 g/dL Normal 13.0-17.0 [facility] Comment on above: Order Comment: Reaso n for Exam Acute kidney injury;Chronic kidney disease, stage 3b;Bilater Performed By: #### V [id number], MANDI, B12, MG, PHOS, CMP, FOL, FE and TIBC, URIC #### [facility] [address] MCH (RBC) [Entitic mass] 27.3 pg Low 27.5-35.2 [facility] Comment on above: Order Comment: Reaso n for Exam Acute kidney injury;Chronic kidney disease, stage 3b;Bilater Performed By: #### V [id number], MANDI, B12, MG, PHOS, CMP, FOL, FE and TIBC, URIC #### [facility] [address] MCV (RBC) [Entitic vol] 83.8 fL Normal 83.5-101 F [facility] Comment on above: Order Comment: Reaso n for Exam Acute kidney injury;Chronic kidney disease, stage 3b;Bilater Performed By: #### V [id number], MANDI, B12, MG, PHOS, CMP, FOL, FE and TIBC, URIC #### [facility] [address] Mean Corpuscular HGB Conc 32.6 g/dL Normal 32.5-35.6 [facility] Comment on above: Order Comment: Reaso n for Exam Acute kidney injury;Chronic kidney disease, stage 3b;Bilater Performed By: #### V [id number], MANDI, B12, MG, PHOS, CMP, FOL, FE and TIBC, URIC #### [facility] [address] Platelet mean volume (Bld) [Entitic vol] 8.6 fL Normal 6.6-10.1 [facility] Comment on above: Order Comment: Reaso n for Exam Acute kidney injury;Chronic kidney disease, stage 3b;Bilater Result Comment: PERF ORMED BY: [place] [address] PATHOLOGIST DISASTER DIRECTOR OREN OWEN M.D. Performed By: #### V [id number], MANDI, B12, MG, PHOS, CMP, FOL, FE and TIBC, URIC #### [facility] [address] [place] [address] Platelets (Bld) [#/Vol] 201 10*3/uL Normal 150-450 [facility] Comment on above: Order Comment: Reaso n for Exam Acute kidney injury;Chronic kidney disease, stage 3b;Bilater Performed By: #### V [id number], MANDI, B12, MG, PHOS, CMP, FOL, FE and TIBC, URIC #### [facility] [address] RBC (Bld) [#/Vol] 5.22 10*6/uL Normal 3.90-5.60 [facility] Comment on above: Order Comment: Reaso n for Exam Acute kidney injury;Chronic kidney disease, stage 3b;Bilater Performed By: #### V [id number], MANDI, B12, MG, PHOS, CMP, FOL, FE and TIBC, URIC #### [facility] [address] WBC (Bld) [#/Vol] 8.4 10*3/uL Normal 4.1-10.5 [facility] Comment on above: Order Comment: Reaso n for Exam Acute kidney injury;Chronic kidney disease, stage 3b;Bilater Performed By: #### V [id number], MANDI, B12, MG, PHOS, CMP, FOL, FE and TIBC, URIC #### [facility] [address] Iron [Mass/volume] in Serum or PlasmaOrdered By: Celia Ramos on 04-08-2023 Iron [Mass/Vol] 53 ug/dL 50-212 [facility] Iron and TIBC Profileon 03-26 % Iron Saturation 14.3 % Low 20-50 [facility] Comment on above: Order Comment: Reaso n for Exam Acute kidney injury;Chronic kidney disease, stage 3b;Bilater Performed By: #### V [id number], MANDI, B12, MG, PHOS, CMP, FOL, FE and TIBC, URIC #### [facility] [address] Iron [Mass/Vol] 53 ug/dL Normal 50-212 [facility] Comment on above: Order Comment: Reaso n for Exam Acute kidney injury;Chronic kidney disease, stage 3b;Bilater Performed By: #### V [id number], MANDI, B12, MG, PHOS, CMP, FOL, FE and TIBC, URIC #### [facility] [address] [place] [id number] [place] Total Iron Binding Capacity 370 ug/dL Normal 255-450 [facility] Comment on above: Order Comment: Reaso n for Exam Acute kidney injury;Chronic kidney disease, stage 3b;Bilater Performed By: #### V [id number], MANDI, B12, MG, PHOS, CMP, FOL, FE and TIBC, URIC #### [facility] [address] [place] [address] [place] Transferrin [Mass/Vol] 264 mg/dL Normal 203-362 [facility] Comment on above: Order Comment: Reaso n for Exam Acute kidney injury;Chronic kidney disease, stage 3b;Bilater Performed By: #### V [id number], MANDI, B12, MG, PHOS, CMP, FOL, FE and TIBC, URIC #### [facility] [address] [place] [address] [place] Iron binding capacity [Mass/ volume] in Serum or PlasmaOrdered By: Celia Ramos on 04-08-2023 Iron binding capacity [Mass/Vol] 370 ug/dL 255-450 [facility] Iron saturation [Mass Fracti on] in Serum or PlasmaOrdered By: Celia Ramos on 04-08-2023 Iron saturation [Mass fraction] 14.3 % 20-50 [facility] Ketones Auto test strip (U) [Mass/Vol]Ordered By: Celia Ramos on 04-08-2023 Ketones (U) [Mass/Vol] Negative Negative [facility] Laboratory - UrinalysisOrder ed By: Celia Ramos on 04-08-2023 Hyaline casts LM Ql (Urine sed) -19 [LPF] 0-8 [facility] Leukocytes [#/volume] correc phil for nucleated erythrocytes in Blood by Automated counOrdered By: Celia Ramos on 04-08-2023 WBC corrected for nucl RBC Auto (Bld) [#/Vol] 8.4 10*3/uL 4.1-10.5 [facility] Lipid Panelon 04-08-2023 Cholesterol [Mass/Vol] 107 mg/dL Low 140-200 [facility] Comment on above: Result Comment: Chol less than 200 mg/dl low risk Chol 201-239 mg/dl borderline risk Chol 240 mg/dl and greater high risk Performed By: #### L IPID #### [facility] [address] Cholesterol in HDL [Mass/Vol] 34 mg/dL Normal 23-92 [facility] Comment on above: Result Comment: HDL CHOL ATP-III CLASSIFICATION Cardiovascular Risk HDL > or equal to 60 mg/dL LOW HDL < 40 mg/dL HIGH Performed By: #### L IPID #### [address] Cholesterol.total/Sonya sterol in HDL [Mass ratio] 3.1 {ratio} Normal <5.0 [facility] Comment on above: Result Comment: PERF ORMED BY: [place] [address] PATHOLOGIST DISASTER DIRECTOR OREN OWEN M.D. Performed By: #### L IPID #### [address] LDL Cholesterol,Calculated 47 mg/dL Normal 0-100 [facility] Comment on above: Result Comment: LDL ATP III CLASSIFICATION LDL less than 100 mg/dL Optimal LDL 100-129 mg/dL Near or above optimal LDL 130-159 mg/dL Borderline high LDL 160-189 mg/dL High LDL greater than 189 mg/dL Very high Performed By: #### L IPID #### [place] [address] [place] Triglyceride w/Reflex 131 mg/dL Normal 0-149 [facility] Comment on above: Result Comment: TRIG ATP III CLASSIFICATION TRIG less than 150 mg/dL Normal TRIG 150-199 mg/dL Borderline high TRIG 200-500 mg/dL High TRIG greater than 500 mg/dL Very high Standard traceable to the Center for Disease Conrtrol and Prevention (CDC) test method. Performed By: #### L IPID #### [address] VLDL CHOLESTEROL 26 mg/dL Normal [facility] Comment on above: Performed By: #### L IPID #### [address] [place] [address] [facility] MCH Auto (RBC) [Entitic mass ]Ordered By: Celia Ramos on 04-08-2023 MCH (RBC) [Entitic mass] 27.3 pg 27.5-35.2 [facility] MCHC Auto (RBC) [Mass/Vol]Or dered By: Celia Ramos on 04-08-2023 MCHC (RBC) [Mass/Vol] 32.6 g/dL 32.5-35.6 [facility] MCV Auto (RBC) [Entitic vol] Ordered By: Celia Ramos on 04-08-2023 MCV (RBC) [Entitic vol] 83.8 fL 83.5-101 F [facility] Magnesiumon 04-08-2023 Magnesium [Mass/Vol] 2.2 mg/dL Normal 1.9-2.7 [facility] Comment on above: Order Comment: Reaso n for Exam Acute kidney injury;Chronic kidney disease, stage 3b;Bilater Performed By: #### V [id number], MANDI, B12, MG, PHOS, CMP, FOL, FE and TIBC, URIC #### [facility] [address] [place] [id number] [facility] Magnesium [Mass/volume] in S marium or PlasmaOrdered By: Celia Ramos on 04-08-2023 Magnesium [Mass/Vol] 2.2 mg/dL 1.9-2.7 [facility] Nitrite Test strip Ql (U)Ord ered By: Celia Ramos on 04-08-2023 Nitrite Ql (U) Positive Negative [facility] No Panel InformationOrdered By: Celia Ramos on 04-08-2023 Estimated GFR (CKD-EPI) 50.692 mL/Min [facility] Creatinine Clearance (Chem N/A [facility] Parathyrin.intact [Mass/volu me] in Serum or PlasmaOrdered By: Celia Ramos on 04-08-2023 Parathyrin.intact [Mass/Vol] 76.6 pg/mL [facility] Parathyroid Hormone Intacton 04-08-2023 Parathyroid Hormone Intact 76.6 pg/mL Normal [facility] Comment on above: Order Comment: Reaso n for Exam Acute kidney injury;Chronic kidney disease, stage 3b;Bilater Result Comment: PERF ORMED BY: [place] [address] PATHOLOGIST DISASTER DIRECTOR OREN OWEN M.D. Performed By: #### V [id number], MANDI, B12, MG, PHOS, CMP, FOL, FE and TIBC, URIC #### [facility] [address] [place] [address] [place] Phosphate [Mass/volume] in S marium or PlasmaOrdered By: Celia Ramos on 04-08-2023 Phosphate [Mass/Vol] 2.8 mg/dL 2.5-4.5 [facility] Phosphoruson 04-08-2023 Phosphate [Mass/Vol] 2.8 mg/dL Normal 2.5-4.5 [facility] Comment on above: Order Comment: Reaso n for Exam Acute kidney injury;Chronic kidney disease, stage 3b;Bilater Performed By: #### V [id number], MANDI, B12, MG, PHOS, CMP, FOL, FE and TIBC, URIC #### [facility] [address] [place] [address] [place] Platelet mean volume Auto (B ld) [Entitic vol]Ordered By: Celia Ramos on 04-08-2023 Platelet mean volume (Bld) [Entitic vol] 8.6 fL 6.6-10.1 [facility] Platelets Auto (Bld) [#/Vol] Ordered By: Celia Ramos on 04-08-2023 Platelets (Bld) [#/Vol] 201 10*3/uL 150-450 [facility] Potassium [Moles/volume] in Serum or PlasmaOrdered By: Celia Ramos on 04-08-2023 Potassium [Moles/Vol] 4.5 mmol/L 3.5-5.1 [facility] Protein Auto test strip (U) [Mass/Vol]Ordered By: Celia Ramos on 04-08-2023 Protein (U) [Mass/Vol] Trace mg/dL Negative [facility] Protein Creat Ratio Ur Rando mon 04-08-2023 Creatinine, Urine (Random) 90.0 mg/dL High 14.0-26.0 [facility] Comment on above: Order Comment: Reaso n for Exam Acute kidney injury;Chronic kidney disease, stage 3b;Bilater Performed By: #### V [id number], MANDI, B12, MG, PHOS, CMP, FOL, FE and TIBC, URIC #### [facility] [address] Protein (U) [Mass/Vol] 30 mg/dL High 0-9 [facility] Comment on above: Order Comment: Reaso n for Exam Acute kidney injury;Chronic kidney disease, stage 3b;Bilater Performed By: #### V [id number], MANDI, B12, MG, PHOS, CMP, FOL, FE and TIBC, URIC #### [facility] [address] Urine Protein/Creatinine Ratio 333 mg/g{Cre} High 0-200 [facility] Comment on above: Order Comment: Reaso n for Exam Acute kidney injury;Chronic kidney disease, stage 3b;Bilater Result Comment: PERF ORMED BY: [place] [address] PATHOLOGIST DISASTER DIRECTOR OREN OWEN M.D. Performed By: #### V [id number], MANDI, B12, MG, PHOS, CMP, FOL, FE and TIBC, URIC #### [facility] [address] Protein [Mass/volume] in Ser um or PlasmaOrdered By: Celia Ramos on 04-08-2023 Protein [Mass/Vol] 7.0 g/dL 6.4-8.9 [facility] Protein [Mass/volume] in Uri neOrdered By: Celia Ramos on 04-08-2023 Protein (U) [Mass/Vol] 30 mg/dL 0-9 [facility] RBC Auto (Bld) [#/Vol]Ordere d By: Celia Ramos on 04-08-2023 RBC (Bld) [#/Vol] 5.22 10*6/uL 3.90-5.60 [facility] Serum or plasma albumin/glob ulin mass ratioOrdered By: Celia Ramos on 04-08-2023 Albumin/Globulin [Mass ratio] 1.5 {ratio} [facility] Serum or plasma anion gap de terminationOrdered By: Celia Ramos on 04-08-2023 Anion gap [Moles/Vol] 8.9 mmol/L 6.0-15.0 [facility] Serum or plasma high density lipoprotein (HDL) cholesterol measurementOrdered By: Teo Stokes on 04-08-2023 Cholesterol in HDL [Mass/Vol] 34 mg/dL 23-92 [facility] Comment on above: HDL CHOL ATP-III CLA SSIFICATION Cardiovascular RiskHDL > or equal to 60 mg/dL LOWHDL < 40 mg/dL HIGH Serum or plasma total choles terol/high density lipoprotein (HDL) cholesterol mass ratOrdered By: Teo Stokes on 04-08-2023 Cholesterol.total/Sonya sterol in HDL [Mass ratio] 3.1 {ratio} <5.0 [facility] Sodium [Moles/volume] in Ser um or PlasmaOrdered By: Celia Ramos on 04-08-2023 Sodium [Moles/Vol] 143 mmol/L 136-145 [facility] Specific gravity Auto test s trip (U) [Rel density]Ordered By: Celia Ramos on 04-08-2023 Specific gravity (U) [Rel density] 1.017 1.001-1.03 0 [facility] Squamous epithelial cells de tection in urine sediment by light microscopyOrdered By: Celia Ramos on 04-08-2023 Epithelial cells.squamous LM Ql (Urine sed) 0-1 [HPF] 0-2 [facility] Transferrin [Mass/volume] in Serum or PlasmaOrdered By: Celia Ramos on 04-08-2023 Transferrin [Mass/Vol] 264 mg/dL 203-362 [facility] Triglyceride [Mass/volume] i n Serum or PlasmaOrdered By: Teo Stokes on 04-08-2023 Triglyceride [Mass/Vol] 131 mg/dL 0-149 [facility] Comment on above: TRIG ATP III CLASSIF ICATIONTRIG less than 150 mg/dL NormalTRIG 150-199 mg/dL Borderline highTRIG 200-500 mg/dL High TRIG greater than 500 mg/dL Very highStandard traceable to the Center for Disease Conrtrol and Prevention (CDC) test method. Urate [Mass/volume] in Serum or PlasmaOrdered By: Celia Ramos on 04-08-2023 Urate [Mass/Vol] 6.0 mg/dL 4.4-7.[address] [facility] Urea nitrogen [Mass/volume] in Serum or PlasmaOrdered By: Celia Ramos on 04-08-2023 Urea nitrogen [Mass/Vol] 27 mg/dL 12-17 [facility] Uric Acidon 04-08-2023 Urate [Mass/Vol] 6.0 mg/dL Normal 4.4-7.[address] [facility] Comment on above: Order Comment: Reaso n for Exam Acute kidney injury;Chronic kidney disease, stage 3b;Bilater Performed By: #### V [id number], MANDI, B12, MG, PHOS, CMP, FOL, FE and TIBC, URIC #### [facility] [address] Urine Cultureon 04-08-2023 Bacteria identified Cx Nom (U) ORGANISM: Klebsiella oxytoca (O:KLEOXY) [place] Count >100,000 ORGANISM: Morganella morganii (O:MORMOR) [place] Count >100,000 Aerobic RITESH Charge (NMIC56) SUSCEPTIBILITY [...] RESISTANT TO ALL B-LACTAM DRUGS. PERFORMED BY: [place] [address] PATHOLOGIST DISASTER DIRECTOR OREN OWEN M.D. Normal [facility] Comment on above: Performed By: #### V [id number], MANDI, B12, MG, PHOS, CMP, FOL, FE and TIBC, URIC #### [address] Urine bacteria detection by automated methodOrdered By: Celia Ramos on 04-08-2023 Bacteria Auto Ql (U) 4+ None Seen [facility] Urine clarity by refractomet ry automatedOrdered By: Celia Ramos on 04-08-2023 Clarity Refractometry automated (U) Cloudy Clear [facility] Urine glucose measurement by automated test strip (mass/volume)Ordered By: Celia Ramos on 04-08-2023 Glucose Auto test strip (U) [Mass/Vol] Normal mg/dL Normal [facility] Urine hemoglobin detection b y automated test stripOrdered By: Celia Ramos on 04-08-2023 Hemoglobin Auto test strip Ql (U) 1+ Negative [facility] Urine leukocyte esterase det ection by automated test stripOrdered By: Celia Ramos on 04-08-2023 Leukocyte esterase Auto test strip Ql (U) 4+ Negative [facility] Urine protein/creatinine rat ioOrdered By: Celia Ramos on 04-08-2023 Protein/Creatinine (U) [Ratio] 333 mg/g{Cre} 0-200 [facility] Urobilinogen Auto test strip (U) [Mass/Vol]Ordered By: Celia Ramos on 04-08-2023 Urobilinogen (U) [Mass/Vol] Normal mg/dL Normal [facility] Vitamin B12on 04-08-2023 Cobalamin (Vitamin B12) [Mass/Vol] 301 pg/mL Normal 180-914 [facility] Comment on above: Order Comment: Reaso n for Exam Acute kidney injury;Chronic kidney disease, stage 3b;Bilater Performed By: #### V [id number], MANDI, B12, MG, PHOS, CMP, FOL, FE and TIBC, URIC #### [address] Vitamin B12 ser/plasOrdered By: Celia Ramos on 04-08-2023 Cobalamin (Vitamin B12) [Mass/Vol] 301 pg/mL 180-914 [facility] Vitamin D 25 Hydroxy Totalon 04-08-2023 Vitamin D 25 Hydroxy Total 37.5 ng/mL Normal 30-100 [facility] Comment on above: Order Comment: Reaso n for Exam Acute kidney injury;Chronic kidney disease, stage 3b;Bilater Result Comment: CHINO MIN D STATUS 25([place])VITAMIN D RANGE (ng/mL) Deficient <20 Insufficient 20 to <30 Sufficient 30 to 100 Reference: Federico Coleman, Palomo LESLIE, et al. Evaluation,treatment, and prevention of vitamin D deficiency; an Endocrine Society clinical practice guideline. JCEM. 2010; 96(7):191-. PERFORMED BY: [facility] [address] [place] [address] PATHOLOGIST DISASTER DIRECTOR OREN OWEN M.D. Performed By: #### V [id number], MANDI, B12, MG, PHOS, CMP, FOL, FE and TIBC, URIC #### [facility] [address] Vitamin D+Metabolites [Mass/ volume] in Serum or PlasmaOrdered By: Celia Ramos on 04-08-2023 Vitamin D+Metabolites [Mass/Vol] 37.5 ng/mL 30-100 [facility] Comment on above: VITAMIN D STATUS 25( [place])VITAMIN D RANGE (ng/mL) Deficient <20 Insufficient 20 to <30Sufficient 30 to 100Reference: Federico Coleman, Palomo LESLIE, et al. Evaluation,treatment, and prevention of vitamin D deficiency; an Endocrine Society clinical practice guideline. JCEM. 2010; 96(7):1911-. pH Auto test strip (U)Ordere d By: Celia Ramos on 04-08-2023 pH (U) 7.0 [pH] 5.0-9.0 [facility] UroVysion Fish and Urine Cyt o ([facility])on 03-18-2023 [facility] Diagnosis Info Invalid Interpretation Code [facility] Comment on above: Result Comment: A:Ur [...] correlated with cytology and cystoscopy results.* CPT 14339, 97621. 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 Electronically signed by : on: 03/18/2023 13:35:55 Performed By: #### 1 [id number] #### [facility] [address] [place] [address] Consent for Procedure/Surger yon 03-12-2023 Consent for Procedure/Surgery [id number]#[id number] Normal [facility] Ambulatory Visit Summaryon 1 Ambulatory Visit [...] Follow Up with ARLENE CASILLAS, Katia Hall, URMarlene When: In 3 months Comments: Sched cysto/FISH/Cytol/BT check Where: [facility] [address] [place] [address]- Medications What How Much When Instructions Unchanged [...] (more content not included)... Normal [facility] Patient Educationon 03-11-20 Patient Education Urology Transurethral [...] including vitamins, herbs, eye drops, creams, and fsxe-twf-oourfsd medicines. ? Any problems you or family [...] tells you to take them. ? Taking inbx-grk-llhacqx medicines, vitamins, herbs, and supplements. Surgery safety [...] (more content not included)... Normal [facility] UroVysion Fish and Urine Cyt o ([facility])on 03-11-2023 [facility] Method of Extraction Bladder Urine Normal [facility] Comment on above: Performed By: #### 1 [id number] #### [facility] [address] [place] [address] [facility] Number of Jars 1 Invalid Interpretation Code [facility] Comment on above: Performed By: #### 1 [id number] #### [facility] [address] [place] [address] [facility] Specimen Bladder Wash Normal [facility] Comment on above: Performed By: #### 1 [id number] #### [facility] [address] [place] [address] [facility] Type of Service Technical Only Normal [facility] Comment on above: Performed By: #### 1 [id number] #### [facility] [address] [place] [address] Urology Office/Clinic Noteon 03-11-2023 Urology Office/Clinic Note [...] Retention of urine, unspecified) Pt presented to [facility] on 09/15/22 due to catheter clogged. [...] [facility] [address], [place] [address]- Additional Instructions: Sched cysto/FISH/Cytol/BT check Patient Education Benign Prostatic Hyperplasia I, Dalila Lala , personally scribed for Dr. Samuels on 03/11/2023 14:20:53. Electronically signed by emma Lala on (more content not included)... Normal [facility] Comment on above: Result Comment: Elec [...] TABLET DAILY Tobacco Use Screening; Status:Complete; Done: [id number] You need to stop smoking. Though it is not easy, more than half of all adult smokers have quit. We encourage you to write down all the reasons you should quit smoking and set a quit date for yourself. Ask us how we can help. You may also call 3-548-MHKV-NOW for free resources and assistance.; Status:Complete - Retrospective Authorization; Done: [id number] Tobacco Use Screening; Status:Complete; Done: [id number] Patient Instructions Please bring all medicines, vitamins, [...] negative for complaint. Vitals Vital Signs Recorded: [id number] 09:57AM Heart Rate72, L Radial Ghewgoao883, LUE, Sitting Wbrbttjap22, LUE, Sitting Height6 ft 2 in Bwwhtk280 lb BMI Ccsbtkpxkb21.35 kg/m2 BSA Calculat (more content not included)... Normal [facility] Tobacco Screening.on 023 Fall risk assessment a) No falls within the last year [facility] [employer] [address] DO Work Phone: Tobacco use status [facility] a) Yes [facility] [employer] [address] DO Work Phone: Tobacco Screening. Yes [facility] [employer] [address] DO Work Phone: IntraOperative Documentson 0 01-13-2023 [facility] Documents [id number]#1.00CD:127 Normal [facility] Consent for Procedure/Surger yon 01-07-2023 Consent for Procedure/Surgery [id number]#1.00CD:127 Normal [facility] IntraOperative Documentson 0 01-07-2023 [facility] Documents [id number]#1.00CD:127 Normal [facility] Consent for Treatmenton Consent for Treatment [id number]#1.00CD:127 Normal [facility] UroVysion Fish and Urine Cyt o ([facility])on 12-17-2022 [facility] Diagnosis Info Invalid Interpretation Code [facility] Comment on above: Result Comment: A:Ur [...] correlated with cytology and cystoscopy results.* CPT 00161, 79460. Microscopic Notes - Microscopic Notes - Abnormal cells 9p21 deletions: Abnormal cells aneploid events: Total cells analyzed: 101 Hematuria: Gross Description Site ID:A color No Color fixative Alcohol Received 60 mls of clear no color fluid with the patient's name and, Urine on the vial. Electronically signed by : on: 12/17/2022 09:12:29 Performed By: #### 1 [id number] ####[facility] [address] [place] [address] Urology Office/Clinic Noteon 12-16-2022 Urology Office/Clinic Note [...] Retention of urine, unspecified) Pt presented to [facility] on 09/15/22 due to catheter clogged. [...] [facility] [address], [place] [address]- Additional Instructions: Follow up after urodynamics for 3 mos cysto/bt ck/FISH/cytol Patient Education Cancer Screening for Men I, Citlalli Rushing, personally scribed for Dr. Samuels on 12/10/2022 13:37:32. . Documentation recorded by the Citlalli carter, accurately reflects the services(s) I performed and decisions made by me. Authenticated by Dr. Samuels on 12/10/2022 13:42:31. 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 Normal [facility] Comment on above: Result Comment: Elec tronically Signed By: Dana Rivas.gonsalo\Date and Time Signed: 12/16/22 11:30 EDT Consent for Procedure/Surger yon 12-11-2022 Consent for Procedure/Surgery [id number]#1.00CD:127 Normal [facility] Ambulatory Visit Summaryon 0 12-10-2022 Ambulatory [...] Urology [address] , [place] [address]- Medications What How Much When Instructions Unchanged [...] (more content not included)... Normal [facility] Patient Educationon 12-11-19 Patient Education Oncology [...] if anything looks unusual. Men with a axnmny-dpzr-xzqhch risk for skin cancer may want to see a fiscal specialist (human resource professional) for an annual body check. What are the benefits of screening? Cancer screening is done to look for cancer in the very early stages, before it spreads and becomes harder to treat and before you would start to notice symptoms. Finding cancer early improves the chances of successful treatment. It ma (more content not included)... Normal [facility] UroVysion Fish and Urine Cyt o ([facility])on 12-10-2022 [facility] Method of Extraction Bladder Wash Normal [facility] Comment on above: Performed By: #### 1 [id number] ####[facility] [address] [place] [id number] [facility] Number of Jars 1 Invalid Interpretation Code [facility] Comment on above: Performed By: #### 1 [id number] ####[facility] [address] [place] [address] [facility] Specimen Urine Normal [facility] Comment on above: Performed By: #### 1 [id number] ####[facility] [address] [place] [address] [facility] Type of Service Technical Only Normal [facility] Comment on above: Performed By: #### 1 [id number] ####[facility] [address] [place] [address] CULTURE URINEon 09-18-2022 CULTURE URINE Isolate 1 Pseudomonas aeruginosa >100,000 cfu/mL of ORGANISM 1 Pseudomonas aeruginosa ANTIBIOTIC M.I.C RX STATUS Piperacillin/Tazobactam <=4 S F Ceftazidime <=1 S F Imipenem 2 S F Amikacin <=2 S F Gentamicin 2 S F Tobramycin <=1 S F Ciprofloxacin <=0.25 S F Levofloxacin <=0.12 S F Normal [facility] Comment on above: Performed By: #### U RTPCR #### [facility] [address] [address] [address] Karen Pierce CALCULI, URINARYon 3 2,8 Dihydroxyadenine Normal [facility] Comment on above: Performed By: #### U A #### [facility] [address] [address] [address] Karen Pierce Ammonium Acid Urate Normal [facility] Comment on above: Performed By: #### U A #### [facility] [address] [address] [address] Karen Pierce Bilirubin Ql (U) [facility] Comment on above: Performed By: #### U A #### [facility] [address] [place] [address] Dr. Karen Pierce Ca Oxalate Dihydrate [facility] Comment on above: Performed By: #### U A #### [facility] [address] [address] [address] Karen Pierce CaHPO4 (Brushite) [facility] Comment on above: Performed By: #### U A #### [facility] [address] [place] [address] Dr. Karen Pierce Calcium Bilirubinate [facility] Comment on above: Performed By: #### U A #### [facility] [address] [address] [address] Karen Pierce Calcium Carbonate Normal [facility] Comment on above: Performed By: #### U A #### [facility] [address] [address] [address] Karen Pierce Calcium Oxalate Monohydrate 100 % [facility] Comment on above: Performed By: #### U A #### [facility] [address] [place] [address] Dr. Karen Pierce Calcium Palmitate Normal [facility] Comment on above: Performed By: #### U A #### [facility] [address] [address] [address] Karen Pierce Calcium Phosphate [facility] Comment on above: Performed By: #### U A #### [facility] [address] [address] [address] Karen Pierce Calcium Stearate [facility] Comment on above: Performed By: #### U A #### [facility] [address] [address] [address] Karen Pierce Carbonate Apatite [facility] Comment on above: Performed By: #### U A #### [facility] [address] [address] [address] Karen Pierce Cellular Material [facility] Comment on above: Performed By: #### U A #### [facility] [address] [address] [address] Karen Pierce Cholesterol [facility] Comment on above: Performed By: #### U A #### [facility] [address] [address] [address] Karen Pierce Color (U) Brown [facility] Comment on above: Performed By: #### U A #### [facility] [address] [address] [address] Karen Pierce Comment [facility] Comment on above: Performed By: #### U A #### [facility] [address] [address] [address] Karen Pierce Comment: Comment Normal [facility] Comment on above: Result Comment: Hyacinth rhodes questions regarding Calculi Analysis contact [facility] at: [phone]. Performed By: #### U A #### [facility] [address] [address] [address] Karen Pierce Composition Comment [facility] Comment on above: Result Comment: Perc entage (Represents the % composition) Performed By: #### U A #### [facility] [address] [address] [address] Karen Pierce Cystine [facility] Comment on above: Performed By: #### U A #### [facility] [address] [place] [address] Dr. Karen Pierce Disclaimer: Comment [facility] Comment on above: Result Comment: This test was developed and its performance characteristics determined by [employer]. It has not been cleared or approved by the Food and Drug Administration. Performed By: #### U A #### [facility] [address] [place] [address] Dr. Karen Pierce Dried Blood [facility] Comment on above: Performed By: #### U A #### [facility] [address] [place] [address] Dr. Karen Pierce Drug or Metabolite [facility] Comment on above: Performed By: #### U A #### [facility] [address] [place] [address] Dr. Karen Pierce Hydroxyapatite [facility] Comment on above: Performed By: #### U A #### [facility] [address] [place] [address] Dr. Karen Pierce Mg NH4 PO4 (Struvite) [facility] Comment on above: Performed By: #### U A #### [facility] [address] [place] [address] Dr. Karen Pierce MgHPO4 (Newberyite) [facility] Comment on above: Performed By: #### U A #### [facility] [address] [place] [address] Dr. Karen Pierce Other component(s) [facility] Comment on above: Performed By: #### U A #### [facility] [address] [place] [address] Dr. Karen Pierce PDF . [facility] Comment on above: Performed By: #### U A #### [facility] [address] [place] [address] Dr. Karen Pierce Photo Comment [facility] Comment on above: Result Comment: Phot ograph will follow under a separate cover Performed By: #### U A #### [facility] [address] [place] [address] Dr. Karen Pierce Please note: Comment [facility] Comment on above: Result Comment: Calc shirley report will follow via computer, mail or cotton buyer delivery. Performed By: #### U A #### [facility] [address] [address] [address] Karen Pierce Size 5x5 Normal [facility] Comment on above: Result Comment: Mult iple pieces received. Dimensions of the largest piece reported. Performed By: #### U A #### [facility] [address] [address] [address] Karen Pierce Sodium Acid Urate [facility] Comment on above: Performed By: #### U A #### [facility] [address] [address] [address] Karen Pierce Source Comment [facility] Comment on above: Result Comment: Urin evelin Bladder Performed By: #### U A #### [facility] [address] [place] [address] Dr. Karen Pierce Triamterene [facility] Comment on above: Performed By: #### U A #### [facility] [address] [address] [address] Karen Pierce Uric Acid [facility] Comment on above: Performed By: #### U A #### [facility] [address] [address] [address] Karen Pierce Uric Acid Dihydrate [facility] Comment on above: Performed By: #### U A #### [facility] [address] [address] [address] Karen Pierce Weight 158 mg Normal [facility] Comment on above: Performed By: #### U A #### [facility] [address] [address] [address] Karen Pierce Xanthine [facility] Comment on above: Performed By: #### U A #### [facility] [address] [place] [address] Dr. Karen Pierce ER URINE PROFILEon 3 Bilirubin Ql (U) Negative Normal NEGATIVE [facility] Comment on above: Performed By: #### U MICRO, ERUR #### [facility] [address] [address] [address] Karen Pierce Clarity (U) CLEAR Normal CLEAR [facility] Comment on above: Performed By: #### U MICRO, ERUR #### [facility] [address] [place] [address] Dr. Karen Pierce Color (U) YELLOW Normal YELLOW [facility] Comment on above: Performed By: #### U MICRO, ERUR #### [facility] [address] [address] [address] Karen Pierce ERUAHD A micrscopic examina tion will be performed if indicated. Normal [facility] Comment on above: Performed By: #### U MICRO, ERUR #### [facility] [address] [place] [address] Dr. Karen Pierce Glucose Ql (U) Negative Normal NEGATIVE [facility] Comment on above: Performed By: #### U MICRO, ERUR #### [facility] [address] [place] [address] Dr. Karen Pierce Hemoglobin Ql (U) LARGE Abnormal NEGATIVE [facility] Comment on above: Performed By: #### U MICRO, ERUR #### [facility] [address] [place] [address] Dr. Karen Pierce Ketones Ql (U) Negative Normal NEGATIVE [facility] Comment on above: Performed By: #### U MICRO, ERUR #### [facility] [address] [place] [address] Dr. Kaern Pierce LEUKOCYTES LARGE Abnormal NEGATIVE [facility] Comment on above: Performed By: #### U MICRO, ERUR #### [facility] [address] [address] [address] Karen Pierce Nitrite Ql (U) Positive Abnormal NEGATIVE [facility] Comment on above: Performed By: #### U MICRO, ERUR #### [facility] [address] [place] [address] Dr. Karen Pierce pH (U) 5.5 [pH] Normal 5-9 [facility] Comment on above: Performed By: #### U MICRO, ERUR #### [facility] [address] [place] [address] Dr. Karen Pierce Protein (U) [Mass/Vol] 100 mg/dL Abnormal NEGAT RAJI/ TRACE [facility] Comment on above: Performed By: #### U MICRO, ERUR #### [facility] [address] [place] [address] Dr. Karen Pierce SPEC GRAVITY 1.020 Normal 1.005-<=1. 025 [facility] Comment on above: Performed By: #### U MICRO, ERUR #### [facility] [address] [place] [address] Dr. Karen Pierce UR MICRO IND INDICATED Normal [facility] Comment on above: Performed By: #### U MICRO, ERUR #### [facility] [address] [place] [address] Dr. Karen Pierce Urobilinogen Qn (U) 1.0 {Tonio'U}/dL Normal 0.2 - 1. 0 [facility] Comment on above: Performed By: #### U MICRO, ERUR #### [facility] [address] [place] [address] Dr. Karen Pierce URINE MICROSCOPIC ONLYon BACTERIA SMALL Abnormal NONE SEEN [facility] Comment on above: Performed By: #### U MICRO, ERUR #### [facility] [address] [place] [address] Dr. Karen Pierce Bacteria identified Cx Nom (U) INDICATED Normal [facility] Comment on above: Performed By: #### U MICRO, ERUR #### [facility] [address] [place] [address] Dr. Karen Pierce CAST NONE SEEN Normal NONE SEEN [facility] Comment on above: Performed By: #### U MICRO, ERUR #### [facility] [address] [place] [address] Dr. Karen Pierce Crystals LM Nom (Urine sed) NONE SEEN Normal NONE SEEN [facility] Comment on above: Performed By: #### U MICRO, ERUR #### [facility] [address] [place] [address] Dr. Karen Pierce Epithelial cells LM Ql (Urine sed) NONE SEEN Normal NONE SEEN /RARE [facility] Comment on above: Performed By: #### U MICRO, ERUR #### [facility] [address] [place] [address] Dr. Karen Pierce MUCOUS NONE SEEN Normal NONE SEEN [facility] Comment on above: Performed By: #### U MICRO, ERUR #### [facility] [address] [address] [address] Karen Pierce RBC (U) [#/Vol] /uL Abnormal 0-2 [facility] Comment on above: Performed By: #### U MICRO, ERUR #### [facility] [address] [place] [address] Dr. Karen Pierce WBC 50-75 Abnormal NONE SEEN [facility] Comment on above: Performed By: #### U MICRO, ERUR #### [facility] [address] [place] [address] Dr. Karen Pierce PTH INTACTon 09-05-2022 PTH, Intact 38 pg/mL Normal 15-65 [facility] Comment on above: Performed By: #### P THINT #### [facility] [address] [place] [address] Dr. Karen Pierce FERRITINon 09-04-2022 Ferritin [Mass/Vol] 49.0 ng/mL Normal 26.0-388.0 [facility] Comment on above: Performed By: #### U RTPCR #### [facility] [address] [place] [address] Dr. Karen Pierce IRON AND TIBCon 09-04-2022 % SATURATION 10.3 % Normal [facility] Comment on above: Performed By: #### U RTPCR #### [facility] [address] [address] [address] Karen Pierce Iron [Mass/Vol] 33.0 ug/dL Critically low 65.0-175.0 [facility] Comment on above: Performed By: #### U RTPCR #### [facility] [address] [place] [address] Dr. Karen Pierce TIBC DIRECT 319.0 ug/dL Normal 250.0-450. 0 [facility] Comment on above: Performed By: #### U RTPCR #### [facility] [address] [place] [address] Dr. Karen Pierce UA RANDOMon 09-04-2022 Bilirubin Ql (U) Negative Normal NEGATIVE [facility] Comment on above: Performed By: #### U A #### [facility] [address] [place] [address] Dr. Karen Pierce Clarity (U) CLEAR Normal CLEAR [facility] Comment on above: Performed By: #### U A #### [facility] [address] [place] [address] Dr. Karen Pierce Color (U) LT. YELLOW Normal YELLOW [facility] Comment on above: Performed By: #### U A #### [facility] [address] [place] [address] Dr. Karen Pierce Glucose Ql (U) Negative Normal NEGATIVE [facility] Comment on above: Performed By: #### U A #### [facility] [address] [place] [address] Dr. Karen Pierce Hemoglobin Ql (U) MODERATE Abnormal NEGATIVE [facility] Comment on above: Performed By: #### U A #### [facility] [address] [place] [address] Dr. Karen Pierce Ketones Ql (U) Negative Normal NEGATIVE [facility] Comment on above: Performed By: #### U A #### [facility] [address] [place] [address] Dr. Karen Pierce LEUKOCYTES LARGE Abnormal NEGATIVE [facility] Comment on above: Performed By: #### U A #### [facility] [address] [place] [address] Dr. Karen Pierce Nitrite Ql (U) Positive Abnormal NEGATIVE [facility] Comment on above: Performed By: #### U A #### [facility] [address] [place] [address] Dr. Karen Pierce pH (U) 6.5 [pH] Normal 5-9 [facility] Comment on above: Performed By: #### U A #### [facility] [address] [place] [address] Dr. Karen Pierce SPEC GRAVITY 1.015 Normal 1.005-<=1. 025 [facility] Comment on above: Performed By: #### U A #### [facility] [address] [place] [address] Dr. Karen Pierce UA PROTEIN 30 mg/dl Abnormal NEGATIVE/ TRACE [facility] Comment on above: Performed By: #### U A #### [facility] [address] [place] [address] Dr. Karen Pierce Urobilinogen Qn (U) 0.2 {Tonio'U}/dL Normal 0.2 - 1. 0 [facility] Comment on above: Performed By: #### U A #### [facility] [address] [place] [address] Dr. Karen Pierec URINE T PROTEIN CREAT RATIOo n 09-04-2022 Protein (U) [Mass/Vol] 65.2 mg/dL Critically high <=12.0 [facility] Comment on above: Performed By: #### U RTPCR #### [facility] [address] [place] [address] Dr. Karen Pirece UR PROT CREAT RAT 0.76 Normal [facility] Comment on above: Performed By: #### U RTPCR #### [facility] [address] [place] [address] Dr. Karen Pierce URINE CREAT 85.95 mg/dL Normal 20.00-300. 00 [facility] Comment on above: Performed By: #### U RTPCR #### [facility] [address] [place] [address] Dr. Karen Pierce VIT B12 AND FOLATEon 023 Cobalamin (Vitamin B12) [Mass/Vol] 279.0 pg/mL Normal 193.0-986. 0 [facility] Comment on above: Performed By: #### U RTPCR #### [facility] [address] [place] [address] Dr. Karen Pierce FOLATE 17.80 ng/mL Normal 8.60-58.90 [facility] Comment on above: Performed By: #### U RTPCR #### [facility] [address] [place] [address] Dr. Karen Pierce VITAMIN D 25 OHon 09-04-2022 VIT D 25-OH 29.9 ng/mL Normal [facility] Comment on above: Performed By: #### U RTPCR #### [facility] [address] [place] [address] Dr. Karen Pierce VIT D RANGES SEE BELOW Normal [facility] Comment on above: Result Comment: <20 ng/mL Vit D deficient 20 - <30 ng/mL Vit D insufficient 30 - 100 ng/mL Vit D sufficient >100 ng/mL Potential Toxicity Performed By: #### U RTPCR #### [facility] [address] [place] [address] Dr. Karen Pierce CBC AUTO DIFFon 09-02-2022 BASO # 0.1 103/ul Normal 0.0-0.1 [facility] Comment on above: Performed By: #### C BC #### [facility] [address] [place] [address] Dr. Karen Pierce Basophils/100 WBC (Bld) 0.7 % Normal 0.2-2.0 [facility] Comment on above: Performed By: #### C BC #### [facility] [address] [place] [address] Dr. Karen Pierce EO # 0.2 103/ul Normal 0.0-0.7 [facility] Comment on above: Performed By: #### C BC #### [facility] [address] [place] [address] Dr. Karen Pierce Eosinophils/100 WBC (Bld) 2.6 % Normal 0.9-7.0 [facility] Comment on above: Performed By: #### C BC #### [facility] [address] [place] [address] Dr. Karen Pierce Erythrocyte distribution width (RBC) [Ratio] 13.8 % Normal 11.0-15.0 [facility] Comment on above: Performed By: #### C BC #### [facility] [address] [place] [address] Dr. Karen Pierce Hematocrit (Bld) [Volume fraction] 38.9 % Critically low 42.0-54.0 [facility] Comment on above: Performed By: #### C BC #### [facility] [address] [place] [address] Dr. Karen Pierce Hemoglobin (Bld) [Mass/Vol] 12.3 g/dL Critically low 14.0-18.0 [facility] Comment on above: Performed By: #### C BC #### [facility] [address] [place] [address] Dr. Karen Pierce IG # 0.01 10e3/ul Normal 0.00-0.03 [facility] Comment on above: Performed By: #### C BC #### [facility] [address] [place] [address] Dr. Karen Pierce IG % 0.1 % Normal 0.0-0.5 [facility] Comment on above: Performed By: #### C BC #### [facility] [address] [place] [address] Dr. Karen Pierce LYMPH # 1.9 103/ul Normal 1.2-3.8 [facility] Comment on above: Performed By: #### C BC #### [facility] [address] [place] [address] Dr. Karen Pierce Lymphocytes/100 WBC (Bld) 27.0 % Normal 20.5-60.0 [facility] Comment on above: Performed By: #### C BC #### [facility] [address] [place] [address] Dr. Karen Pierce MANUAL DIFF REQ NO Normal [facility] Comment on above: Performed By: #### C BC #### [facility] [address] [place] [address] Dr. Karen Pierce MCH (RBC) [Entitic mass] 27.8 pg Normal 25.9-34.0 [facility] Comment on above: Performed By: #### C BC #### [facility] [address] [place] [address] Dr. Karen Pierce MCHC (RBC) [Mass/Vol] 31.6 g/dL Normal 29.9-35.2 [facility] Comment on above: Performed By: #### C BC #### [facility] [address] [place] [address] Dr. Karen Pierce MCV (RBC) [Entitic vol] 87.8 fL Normal 80.0-94.0 [facility] Comment on above: Performed By: #### C BC #### [facility] [address] [place] [address] Dr. Karen Pierce MONO # 0.6 103/ul Normal 0.3-0.8 [facility] Comment on above: Performed By: #### C BC #### [facility] [address] [place] [address] Dr. Karen Pierce Monocytes/100 WBC (Bld) 8.8 % Normal 1.7-12.0 [facility] Comment on above: Performed By: #### C BC #### [facility] [address] [place] [address] Dr. Karen Pierce NEUT # 4.4 103/ul Normal 1.4-6.5 [facility] Comment on above: Performed By: #### C BC #### [facility] [address] [place] [address] Dr. Karen Pierce Neutrophils/100 WBC (Bld) 60.8 % Normal 43.0-75.0 [facility] Comment on above: Performed By: #### C BC #### [facility] [address] [place] [address] Dr. Karen Pierce Platelet mean volume (Bld) [Entitic vol] 9.9 fL Normal 9.5-13.5 [facility] Comment on above: Performed By: #### C BC #### [facility] [address] [place] [address] Dr. Karen Pierce PLT 181 103/ul Normal 150-450 [facility] Comment on above: Performed By: #### C BC #### [facility] [address] [place] [address] Dr. Karen Pierce RBC 4.43 106/ul Critically low 4.70-6.10 [facility] Comment on above: Performed By: #### C BC #### [facility] [address] [place] [address] Dr. Karen Pierce WBC 7.2 103/ul Normal 4.0-11.0 [facility] Comment on above: Performed By: #### C BC #### [facility] [address] [place] [address] Dr. Karen iPerce MAGNESIUMon 09-02-2022 Magnesium [Mass/Vol] 2.2 mg/dL Normal 1.8-2.4 [facility] Comment on above: Performed By: #### U A #### [facility] [address] [place] [address] Dr. Karen Pierce PHOSPHORUSon 09-02-2022 Phosphate [Mass/Vol] 2.9 mg/dL Normal 2.6-4.7 [facility] Comment on above: Performed By: #### U A #### [facility] [address] [place] [address] Dr. Karen Pierce PROF 14(COMP METB)on 023 Albumin [Mass/Vol] 3.5 g/dL Normal 3.4-5.0 [facility] Comment on above: Performed By: #### P THINT #### [facility] [address] [place] [address] Dr. Karen Pierce Albumin/Globulin [Mass ratio] 1.0 {ratio} Normal [facility] Comment on above: Performed By: #### P THINT #### [facility] [address] [place] [address] Dr. Karen Pierce ALP [Catalytic activity/Vol] 86 U/L Normal 46-116 [facility] Comment on above: Performed By: #### P THINT #### [facility] [address] [place] [address] Dr. Karen Pierce ALT [Catalytic activity/Vol] 17 U/L Normal 16-63 [facility] Comment on above: Performed By: #### P THINT #### [facility] [address] [place] [address] Dr. Karen Pierce Anion gap [Moles/Vol] 13.0 mmol/L Normal [facility] Comment on above: Performed By: #### P THINT #### [facility] [address] [place] [address] Dr. Karen Pierce AST [Catalytic activity/Vol] 14 U/L Critically low 15-37 [facility] Comment on above: Performed By: #### P THINT #### [facility] [address] [place] [address] Dr. Karen Pierce Bilirubin [Mass/Vol] 0.3 mg/dL Normal 0.2-1.0 [facility] Comment on above: Performed By: #### P THINT #### [facility] [address] [place] [address] Dr. Karen Pierce CO2 [Moles/Vol] 27.6 mmol/L Normal 21.0-32.0 [facility] Comment on above: Performed By: #### P THINT #### [facility] [address] [place] [address] Dr. Karen Pierce Creatinine [Mass/Vol] 1.48 mg/dL Critically high 0.70-1.30 [facility] Comment on above: Performed By: #### P THINT #### [facility] [address] [place] [address] Dr. Karen Pierce EGFR-AF CHINESE 56 mL/min/1.73m2 Critically low >=60 [facility] Comment on above: Performed By: #### P THINT #### [facility] [address] [place] [address] Dr. Karen Pierce EGFR-NON AF CHINESE 46 mL/min/1.73m2 Critically low >=60 [facility] Comment on above: Performed By: #### P THINT #### [facility] [address] [place] [address] Dr. Karen Pierce Globulin (S) [Mass/Vol] 3.6 g/dL Normal [facility] Comment on above: Performed By: #### P THINT #### [facility] [address] [place] [address] Dr. Karen Pierce Glucose [Mass/Vol] 105 mg/dL Normal 74-106 [facility] Comment on above: Performed By: #### P THINT #### [facility] [address] [place] [address] Dr. Karen Pierce Protein [Mass/Vol] 7.1 g/dL Normal 6.4-8.2 [facility] Comment on above: Performed By: #### P THINT #### [facility] [address] [place] [address] Dr. Karen Pierce Sodium [Moles/Vol] 142 mmol/L Normal 136-145 [facility] Comment on above: Performed By: #### P THINT #### [facility] [address] [place] [address] Dr. Karen Pierce Urea nitrogen/Creatinine [Mass ratio] 16.2 mg/mg Normal [facility] Comment on above: Performed By: #### P THINT #### [facility] [address] [place] [address] Dr. Karen Pierce PROF CHEM 8 (BAS METB)on Anion gap [Moles/Vol] 11.1 mmol/L Normal [facility] Comment on above: Performed By: #### U A #### [facility] [address] [place] [address] Dr. Karen Pierce Calcium [Mass/Vol] 8.7 mg/dL Normal 8.5-10.1 [facility] Comment on above: Performed By: #### U A #### [facility] [address] [place] [address] Dr. Karen Pierce Performed By: #### P THINT #### [facility] [address] [place] [address] Dr. Karen Pierce Chloride [Moles/Vol] 106 mmol/L Normal 98-107 [facility] Comment on above: Performed By: #### U A #### [facility] [address] [place] [address] Dr. Karen Pierce Performed By: #### P THINT #### [facility] [address] [place] [address] Dr. Karen Pierce CO2 [Moles/Vol] 28.5 mmol/L Normal 21.0-32.0 [facility] Comment on above: Performed By: #### U A #### [facility] [address] [address] [address] Karen Pierce Creatinine [Mass/Vol] 1.44 mg/dL Critically high 0.70-1.30 [facility] Comment on above: Performed By: #### U A #### [facility] [address] [address] [address] Karen Pierce EGFR-AF CHINESE 58 mL/min/1.73m2 Critically low >=60 [facility] Comment on above: Performed By: #### U A #### [facility] [address] [address] [address] Karen Pierce EGFR-NON AF CHINESE 47 mL/min/1.73m2 Critically low >=60 [facility] Comment on above: Performed By: #### U A #### [facility] [address] [address] [address] Karen Pierce Glucose [Mass/Vol] 104 mg/dL Normal 74-106 [facility] Comment on above: Performed By: #### U A #### [facility] [address] [address] [address] Karen Pierce Potassium [Moles/Vol] 4.6 mmol/L Normal 3.5-5.1 [facility] Comment on above: Performed By: #### U A #### [facility] [address] [address] [address] Karen Pierce Performed By: #### P THINT #### [facility] [address] [address] [address] Karen Pierce Sodium [Moles/Vol] 141 mmol/L Normal 136-145 [facility] Comment on above: Performed By: #### U A #### [facility] [address] [address] [address] Karen Pierce Urea nitrogen [Mass/Vol] 24.0 mg/dL Critically high 7.0-18.0 [facility] Comment on above: Performed By: #### U A #### [facility] [address] [place] [address] Dr. Karen Pierce Performed By: #### P THINT #### [facility] [address] [place] [address] Dr. Karen Pierce Urea nitrogen/Creatinine [Mass ratio] 16.7 mg/mg Normal [facility] Comment on above: Performed By: #### U A #### [facility] [address] [place] [address] Dr. Karen Pierce PROTIMEon 09-02-2022 INR Coag (PPP) [Relative time] 1.01 {INR} Normal [facility] Comment on above: Performed By: #### P TT, PT #### [facility] [address] [place] [address] Dr. Karen Pierce INR GUIDELINES SEE BELOW Normal [facility] Comment on above: Result Comment: EMY RED INR: 2.0 - 3.0 CONDITIONS NOT LISTED BELOW 2.5 - 3.5 FOR PROSTHETIC HEART VALVE REPLACEMENT 2.5 - 3.5 RECURRENT THROMBOSIS Performed By: #### P TT, PT #### [facility] [address] [place] [address] Dr. Karen Pierce PT Coag (PPP) [Time] 10.7 s Normal 9.0-11.6 [facility] Comment on above: Performed By: #### P TT, PT #### [facility] [address] [place] [address] Dr. Karen Pierce PTTon 09-02-2022 aPTT Coag (Bld) [Time] 28.2 s Normal 22.3-36.2 [facility] Comment on above: Performed By: #### P TT, PT #### [facility] [address] [place] [address] Dr. Karen Pierce URIC ACID SERUMon 09-02-2022 Urate [Mass/Vol] 4.8 mg/dL Normal 3.5-7.2 [facility] Comment on above: Performed By: #### P THINT #### [facility] [address] [place], [place] [id number] Dr. Karen Pierce Creatinine (Bld) [Mass/Vol]O rdered By: Margarito Valentine on 08-16-2022 Creatinine [Mass/Vol] 1.5 mg/dL 0.6-1.3 [facility] Comment on above: ER/ESD physician is notified/shown all ISTAT results.Critical values may be confirmed by laboratory testing ifdeemed necessary by ER attending doctor. Creatinine (Bld) [Mass/Vol]O rdered By: Heather Schwab on 07-24-2022 Creatinine [Mass/Vol] 1.6 mg/dL 0.6-1.3 [facility] Comment on above: ER/ESD physician is notified/shown all ISTAT results.Critical values may be confirmed by laboratory testing ifdeemed necessary by ER attending doctor. No Panel InformationOrdered By: Heather Schwab on 07-24-2022 POC Estimated GFR 51 [facility] Comment on above: GFR estimated refere nce range: According to KDOQI guidelines, <60 ml/min/1.73m2 is sufficient to diagnose a patient with chronic kidney disease. POC Estimated GFR Non- Amer 42 [facility] Blood activated clotting lacho e by coagulation assayOrdered By: Margarito Valentine on 07-02-2022 ACT Coag (Bld) 215 s 90-139 [facility] Comment on above: Reference Range: 90- 139 (Non-heparinized) Basophils Auto (Bld) [#/Vol] Ordered By: Margarito Valentine on 06-21-2022 Basophils (Bld) [#/Vol] 0.1 10*3/uL 0.0-0.2 [facility] Basophils/100 WBC Auto (Bld) Ordered By: Margarito Valentine on 06-21-2022 Basophils/100 WBC (Bld) 0.9 % . [facility] Creatinine and Glomerular fi ltration rate.predicted panel (S/P/Bld)Ordered By: Margarito Valentine on 06-21-2022 Creatinine [Mass/Vol] 1.24 mg/dL 0.64-1.27 [facility] Eosinophils Auto (Bld) [#/Vo l]Ordered By: Margarito Valentine on 06-21-2022 Eosinophils (Bld) [#/Vol] 0.2 10*3/uL 0.0-0.45 [facility] Eosinophils/100 WBC Auto (Bl d)Ordered By: Margarito Valentine on 06-21-2022 Eosinophils/100 WBC (Bld) 2.5 % . [facility] Erythrocyte distribution wid th Auto (RBC) [Ratio]Ordered By: Margarito Valentine on 06-21-2022 Erythrocyte distribution width (RBC) [Ratio] 18.0 % 12.0-14.8 [facility] Estimated glomerular filtrat ion rate (GFR) non- AmericanOrdered By: Margarito Valentine on 06-21-2022 GFR/1.73 sq M.predicted among non-blacks MDRD (S/P/Bld) [Vol rate/Area] 56 mL/Min [facility] Hematocrit Auto (Bld) [Volum e fraction]Ordered By: Margarito Valentine on 06-21-2022 Hematocrit (Bld) [Volume fraction] 37.7 % 38.8-50.0 [facility] Hemoglobin [Mass/volume] in BloodOrdered By: Margarito Valentine on 06-21-2022 Hemoglobin (Bld) [Mass/Vol] 12.3 g/dL 13.0-17.0 [facility] Leukocytes [#/volume] correc phil for nucleated erythrocytes in Blood by Automated counOrdered By: Margarito Valentine on 06-21-2022 WBC corrected for nucl RBC Auto (Bld) [#/Vol] 7.1 10*3/uL 4.1-10.5 [facility] Lymphocytes Auto (Bld) [#/Vo l]Ordered By: Margarito Valentine on 06-21-2022 Lymphocytes (Bld) [#/Vol] 1.3 10*3/uL 1.00-4.8 [facility] Lymphocytes/100 WBC Auto (Bl d)Ordered By: Margarito Valentine on 06-21-2022 Lymphocytes/100 WBC (Bld) 18.7 % . [facility] MCH Auto (RBC) [Entitic mass ]Ordered By: Margarito Valentine on 06-21-2022 MCH (RBC) [Entitic mass] 28.2 pg 27.5-35.2 [facility] MCHC Auto (RBC) [Mass/Vol]Or dered By: Margarito Valentine on 06-21-2022 MCHC (RBC) [Mass/Vol] 32.6 g/dL 32.5-35.6 [facility] MCV Auto (RBC) [Entitic vol] Ordered By: Margarito Valentine on 06-21-2022 MCV (RBC) [Entitic vol] 86.5 fL 83.5-101 [facility] Monocytes Auto (Bld) [#/Vol] Ordered By: Margarito Valentine on 06-21-2022 Monocytes (Bld) [#/Vol] 0.7 10*3/uL 0.0-0.8 [facility] Monocytes/100 WBC Auto (Bld) Ordered By: Margarito Valentine on 06-21-2022 Monocytes/100 WBC (Bld) 10.3 % . [facility] Neutrophils Auto (Bld) [#/Vo l]Ordered By: Margarito Valentine on 06-21-2022 Neutrophils (Bld) [#/Vol] 4.8 10*3/uL 1.8-7.7 [facility] Neutrophils/100 WBC Auto (Bl d)Ordered By: Margarito Valentine on 06-21-2022 Neutrophils/100 WBC (Bld) 67.6 % . [facility] No Panel InformationOrdered By: Margarito Valentine on 06-21-2022 Estimated GFR () > 60 mL/Min [facility] Comment on above: GFR estimated refere nce range: According to KDOQI guidelines, <60 ml/min/1.73m2 is sufficient to diagnose a patient with chronic kidney disease. Pharmacy Creatinine Clearance (Chem N/A [facility] Nucleated erythrocytes [Pres ence] in Blood by Automated countOrdered By: Margarito Valentine on 06-21-2022 Nucleated RBC Auto Ql (Bld) 0.1 /100{WBC} 0-0.5 [facility] Platelet mean volume Auto (B ld) [Entitic vol]Ordered By: Margarito Valentine on 06-21-2022 Platelet mean volume (Bld) [Entitic vol] 8.2 fL 6.6-10.1 [facility] Platelets Auto (Bld) [#/Vol] Ordered By: Margarito Valentine on 06-21-2022 Platelets (Bld) [#/Vol] 149 10*3/uL 150-450 [facility] RBC Auto (d) [#/Vol]Ordere d By: Margarito Valentine on 06-21-2022 RBC (Bld) [#/Vol] 4.36 10*6/uL 3.90-5.60 [facility] Serum or plasma anion gap de terminationOrdered By: Margarito Valentine on 06-21-2022 Anion gap [Moles/Vol] 10.8 mmol/L 6.0-15.0 [facility] Serum or plasma calcium elan urement (mass/volume)Ordered By: Margarito Valentine on 06-21-2022 Calcium [Mass/Vol] 8.8 mg/dL 8.2-10.2 [facility] Serum or plasma chloride herb surement (moles/volume)Ordered By: Margarito Valentine on 06-21-2022 Chloride [Moles/Vol] 107 mmol/L 95-114 [facility] Serum or plasma glucose elan urement (mass/volume)Ordered By: Margarito Valentine on 06-21-2022 Glucose [Mass/Vol] 103 mg/dL 70-100 [facility] Comment on above: ADA recommended refe rence rangeRandom Glucose Reference Range is dependent on time and content of last meal. Glucose of more than 200 mg/dL in a nonstressed, ambulatory subject supports the diagnosis of Diabetes Mellitus. Serum or plasma potassium me asurement (moles/volume)Ordered By: Margarito Valentine on 06-21-2022 Potassium [Moles/Vol] 4.2 mmol/L 3.5-5.1 [facility] Serum or plasma sodium measu rement (moles/volume)Ordered By: Margarito Valentine on 06-21-2022 Sodium [Moles/Vol] 138 mmol/L 136-146 [facility] Serum or plasma total carbon dioxide measurement (moles/volume)Ordered By: Margarito Valentine on 06-21-2022 CO2 [Moles/Vol] 24.4 mmol/L 22.0-30.[address] [facility] Serum or plasma urea nitroge n measurement (mass/volume)Ordered By: Margarito Valentine on 06-21-2022 Urea nitrogen [Mass/Vol] 18 mg/dL 02-15 [facility] WBC Auto (Bld) [#/Vol]Ordere d By: Margarito Valentine on 06-21-2022 WBC (Bld) [#/Vol] 7.1 10*3/uL 4.1-10.5 [facility] Office Visit (Cardiology)on 06-03-2022 Follow-up [...] Complaint ALEX ANDERSON is being seen for [facility]. 76-year-old white male who I saw [...] Signs Recorded: 03Jun2022 03:38PM Heart Rate71, Apical [id number], LUE, Sitting Cklnnobdi80, LUE, Sitting Height6 ft 2 in Nnqnoe149 lb BMI Wndshxpafi63.45 kg/m2 BSA Calculated2.2 Tobacco Useb) No PHQ-2 [...] , regular (more content not included)... Normal [employer] Tobacco Screening.on 023 Adult depression screening assessment No [facility] [employer] [address] DO Work Phone: Fall risk assessment a) No falls within the last year [facility] [employer] [address] DO Work Phone: Tobacco use status CPHS b) No M [facility] [employer] DO Work Phone: Basophils Auto (Bld) [#/Vol] Ordered By: Bernabe Cr on 05-22-2022 Basophils (Bld) [#/Vol] 0.1 10*3/uL 0.0-0.2 [facility] Basophils/100 WBC Auto (Bld) Ordered By: Bernabe Cr on 05-22-2022 Basophils/100 WBC (Bld) 1.2 % . [facility] Creatinine and Glomerular fi ltration rate.predicted panel (S/P/Bld)Ordered By: Bernabe Cr on 05-22-2022 Creatinine [Mass/Vol] 1.78 mg/dL 0.64-1.27 [facility] Eosinophils Auto (Bld) [#/Vo l]Ordered By: Bernabe Cr on 05-22-2022 Eosinophils (Bld) [#/Vol] 0.3 10*3/uL 0.0-0.45 [facility] Eosinophils/100 WBC Auto (Bl d)Ordered By: Bernabe Cr on 05-22-2022 Eosinophils/100 WBC (Bld) 3.6 % . [facility] Erythrocyte distribution wid th Auto (RBC) [Ratio]Ordered By: Benrabe Cr on 05-22-2022 Erythrocyte distribution width (RBC) [Ratio] 15.3 % 12.0-14.8 [facility] Estimated glomerular filtrat ion rate (GFR) non- AmericanOrdered By: Bernabe Cr on 05-22-2022 GFR/1.73 sq M.predicted among non-blacks MDRD (S/P/Bld) [Vol rate/Area] 37 mL/Min [facility] Hematocrit Auto (Bld) [Volum e fraction]Ordered By: Bernabe Cr on 05-22-2022 Hematocrit (Bld) [Volume fraction] 36.2 % 38.8-50.0 [facility] Hemoglobin [Mass/volume] in BloodOrdered By: Bernabe Cr on 05-22-2022 Hemoglobin (Bld) [Mass/Vol] 11.7 g/dL 13.0-17.0 [facility] Leukocytes [#/volume] correc phil for nucleated erythrocytes in Blood by Automated counOrdered By: Bernabe Cr on 05-22-2022 WBC corrected for nucl RBC Auto (Bld) [#/Vol] 8.1 10*3/uL 4.1-10.5 [facility] Lymphocytes Auto (Bld) [#/Vo l]Ordered By: Bernabe Cr on 05-22-2022 Lymphocytes (Bld) [#/Vol] 1.4 10*3/uL 1.00-4.8 [facility] Lymphocytes/100 WBC Auto (Bl d)Ordered By: Bernabe Cr on 05-22-2022 Lymphocytes/100 WBC (Bld) 16.9 % . [facility] MCH Auto (RBC) [Entitic mass ]Ordered By: Bernabe Cr on 05-22-2022 MCH (RBC) [Entitic mass] 27.4 pg 27.5-35.2 [facility] MCHC Auto (RBC) [Mass/Vol]Or dered By: Bernabe Cr on 05-22-2022 MCHC (RBC) [Mass/Vol] 32.5 g/dL 32.5-35.6 [facility] MCV Auto (RBC) [Entitic vol] Ordered By: Bernabe Cr on 05-22-2022 MCV (RBC) [Entitic vol] 84.3 fL 83.5-101 [facility] Monocytes Auto (Bld) [#/Vol] Ordered By: Bernabe Cr on 05-22-2022 Monocytes (Bld) [#/Vol] 0.8 10*3/uL 0.0-0.8 [facility] Monocytes/100 WBC Auto (Bld) Ordered By: Bernabe Cr on 05-22-2022 Monocytes/100 WBC (Bld) 10.1 % . [facility] Neutrophils Auto (Bld) [#/Vo l]Ordered By: Bernabe Cr on 05-22-2022 Neutrophils (Bld) [#/Vol] 5.6 10*3/uL 1.8-7.7 [facility] Neutrophils/100 WBC Auto (Bl d)Ordered By: Bernabe Cr on 05-22-2022 Neutrophils/100 WBC (Bld) 68.2 % . [facility] No Panel InformationOrdered By: Bernabe Cr on 05-22-2022 Estimated GFR () 45 mL/Min [facility] Comment on above: GFR estimated refere nce range: According to KDOQI guidelines, <60 ml/min/1.73m2 is sufficient to diagnose a patient with chronic kidney disease. Pharmacy Creatinine Clearance (Chem 39.77 [facility] Nucleated erythrocytes [Pres ence] in Blood by Automated countOrdered By: Bernabe Cr on 05-22-2022 Nucleated RBC Auto Ql (Bld) 0.1 /100{WBC} 0-0.5 [facility] Platelet mean volume Auto (B ld) [Entitic vol]Ordered By: Bernabe Cr on 05-22-2022 Platelet mean volume (Bld) [Entitic vol] 8.7 fL 6.6-10.1 [facility] Platelets Auto (Bld) [#/Vol] Ordered By: Bernabe Cr on 05-22-2022 Platelets (Bld) [#/Vol] 198 10*3/uL 150-450 [facility] RBC Auto (Bld) [#/Vol]Ordere d By: Bernabe Cr on 05-22-2022 RBC (Bld) [#/Vol] 4.29 10*6/uL 3.90-5.60 [facility] Serum or plasma anion gap de terminationOrdered By: Bernabe Cr on 05-22-2022 Anion gap [Moles/Vol] 13.3 mmol/L 6.0-15.0 [facility] Serum or plasma calcium elan urement (mass/volume)Ordered By: Bernabe Cr on 05-22-2022 Calcium [Mass/Vol] 8.3 mg/dL 8.2-10.2 [facility] Serum or plasma chloride herb surement (moles/volume)Ordered By: Bernabe Cr on 05-22-2022 Chloride [Moles/Vol] 104 mmol/L 95-114 [facility] Serum or plasma glucose elan urement (mass/volume)Ordered By: Bernabe Cr on 05-22-2022 Glucose [Mass/Vol] 180 mg/dL 70-100 [facility] Comment on above: ADA recommended refe rence rangeRandom Glucose Reference Range is dependent on time and content of last meal. Glucose of more than 200 mg/dL in a nonstressed, ambulatory subject supports the diagnosis of Diabetes Mellitus. Serum or plasma potassium me asurement (moles/volume)Ordered By: Bernabe Cr on 05-22-2022 Potassium [Moles/Vol] 3.3 mmol/L 3.5-5.1 [facility] Serum or plasma sodium measu rement (moles/volume)Ordered By: Bernabe Cr on 05-22-2022 Sodium [Moles/Vol] 137 mmol/L 136-146 [facility] Serum or plasma total carbon dioxide measurement (moles/volume)Ordered By: Bernabe Cr on 05-22-2022 CO2 [Moles/Vol] 23.0 mmol/L 22.0-30.[address] [facility] Serum or plasma urea nitroge n measurement (mass/volume)Ordered By: Bernabe Cr on 05-22-2022 Urea nitrogen [Mass/Vol] 21 mg/dL 02-15 [facility] WBC Auto (Bld) [#/Vol]Ordere d By: Bernabe Cr on 05-22-2022 WBC (Bld) [#/Vol] 8.1 10*3/uL 4.1-10.5 [facility] No Panel InformationOrdered By: Bernabe Cr on 05-21-2022 25-Hydroxy Vitamin D Total 15.9 ng/mL 30-100 [facility] Comment on above: VITAMIN D STATUS 25( [place])VITAMIN D RANGE (ng/mL) Deficient <20 Insufficient 20 to <30Sufficient 30 to 100Reference: Sixto MF,Federico NC, Palomo LESLIE, et al. Evaluation,treatment, and prevention of vitamin D deficiency; an Endocrine Society clinical practice guideline. JCEM. 2010; 96(7):1911-30. Vitamin C level 0.2 mg/dL 0.4-2.0 [facility] Comment on above: This test was devdayannao tacos and its performance characteristicsdetermined by [employer]. It has not been cleared orapproved by the Food and Drug Administration.Vitamin C deficiency is generally defined as plasma orserum concentrations less than 0.2 mg/dL and levels between0.2 and 0.4 mg/dL are considered low.Performed at: [place] [id number] Director: Mamadou Rodriguez MD, Phone: [phone] Folate [Mass/volume] in Seru m or PlasmaOrdered By: Taz Barnes on 05-20-2022 Folate [Mass/Vol] 5.5 ng/mL >5.9 [facility] Comment on above: Folate reference ran ge: >5.9 ng/mlThe WHO technical consultation on folate and vitamin [id number] has determined that folate concentrations lessthan 4 ng/ml are considered deficient. Laboratory - Chemistry and C hemistry - challengeOrdered By: Taz Barnes on 05-20-2022 Cobalamin (Vitamin B12) [Mass/Vol] 169 pg/mL 180-914 [facility] No Panel InformationOrdered By: Taz Barnes on 05-20-2022 Ova and Parasite Result 1 [facility] Ova and Parasite Result 1 [facility] Ova or parasites identificat ionOrdered By: Taz Barnes on 05-20-2022 Ova and parasites identified LM Nom (Unsp spec) [facility] Ova and parasites identified LM Nom (Unsp spec) [facility] Laboratory - Chemistry and C hemistry - challengeOrdered By: Janice Gonzalez on 05-19-2022 Magnesium [Mass/Vol] 1.7 mg/dL 1.6-2.6 [facility] Automated erythrocytes count in urine sediment (number/area)Ordered By: Taz Barnes on 05-18-2022 RBC Auto (Urine sed) [#/Area] 50-100 [HPF] 0-4 [facility] Automated leukocytes count i n urine sediment (number/area)Ordered By: Taz Barnes on 05-18-2022 WBC Auto (Urine sed) [#/Area] Innumerable [HPF] 0-4 [facility] Automated urine hyaline cast s count (number/volume)Ordered By: Taz Barnes on 05-18-2022 Hyaline casts Auto (U) [#/Vol] None seen [LPF] 0-1 [facility] Bilirubin Test strip Ql (U)O rdered By: Taz Barnes on 05-18-2022 Bilirubin Ql (U) Negative Negative [facility] Casts typing in urine sedime nt by light microscopyOrdered By: Taz Barnes on 05-18-2022 Casts LM Nom (Urine sed) None seen [LPF] None Seen [facility] Color Auto (U)Ordered By: Starr Barnes on 05-18-2022 Color (U) Yellow Yellow [facility] Ketones Auto test strip (U) [Mass/Vol]Ordered By: Taz Barnes on 05-18-2022 Ketones (U) [Mass/Vol] Negative Negative [facility] Nitrite Test strip Ql (U)Ord ered By: Taz Barnes on 05-18-2022 Nitrite Ql (U) Negative Negative [facility] Protein Auto test strip (U) [Mass/Vol]Ordered By: Taz Barnes on 05-18-2022 Protein (U) [Mass/Vol] 100 mg/dL Negative [facility] Specific gravity Auto test s trip (U) [Rel density]Ordered By: Taz Barnes on 05-18-2022 Specific gravity (U) [Rel density] 1.010 1.001-1.03 0 [facility] Squamous epithelial cells de tection in urine sediment by light microscopyOrdered By: Taz Barnes on 05-18-2022 Epithelial cells.squamous LM Ql (Urine sed) 1-2 [HPF] 0-2 [facility] Urine bacteria detection by automated methodOrdered By: Taz Barnes on 05-18-2022 Bacteria Auto Ql (U) None seen None Seen [facility] Urine clarity by refractomet ry automatedOrdered By: Taz Barnes on 05-18-2022 Clarity Refractometry automated (U) Turbid Clear [facility] Urine culture routineOrdered By: Taz Barnes on 05-18-2022 Bacteria identified Cx Nom (U) No Growth 2 Days [facility] Bacteria identified Cx Nom (U) No Growth 2 Days [facility] Urine glucose measurement by automated test strip (mass/volume)Ordered By: Taz Barnes on 05-18-2022 Glucose Auto test strip (U) [Mass/Vol] Normal mg/dL Normal [facility] Urine hemoglobin detection b y automated test stripOrdered By: Taz Barnes on 05-18-2022 Hemoglobin Auto test strip Ql (U) 2+ Negative [facility] Urine leukocyte esterase det ection by automated test stripOrdered By: Taz Barnes on 05-18-2022 Leukocyte esterase Auto test strip Ql (U) 4+ Negative [facility] Urobilinogen Auto test strip (U) [Mass/Vol]Ordered By: Taz Barnes on 05-18-2022 Urobilinogen (U) [Mass/Vol] Normal mg/dL Normal [facility] Yeast detection in urine sed iment by light microscopyOrdered By: Taz Barnes on 05-18-2022 Yeast LM Ql (Urine sed) None seen [HPF] None Se en [facility] pH Auto test strip (U)Ordere d By: Taz Barnes on 05-18-2022 pH (U) 7.5 [pH] 5.0-9.0 [facility] Activated partial thrombopla stin time (aPTT) in platelet poor plasma by coagulation aOrdered By: Taz Branes on 05-16-2022 aPTT Coag (PPP) [Time] 29.5 s 25.1-36.5 [facility] Body fluid albumin measureme nt (mass/volume)Ordered By: Taz Barnes on 05-16-2022 Albumin (Body fld) [Mass/Vol] 2.9 g/dL 3.2-5.5 [facility] CBC AUTO DIFFon 05-16-2022 BASO # 0.0 103/ul Normal 0.0-0.1 [facility] Comment on above: Performed By: #### C BC #### [facility] [address] [address] [address] Karen Pierce Basophils/100 WBC (Bld) 0.3 % Normal 0.2-2.0 [facility] Comment on above: Performed By: #### C BC #### [facility] [address] [address] [address] Karen Pierce EO # 0.1 103/ul Normal 0.0-0.7 [facility] Comment on above: Performed By: #### C BC #### [facility] [address] [place] [address] Dr. Karen Pierce Eosinophils/100 WBC (Bld) 0.7 % Critically low 0.9-7.0 [facility] Comment on above: Performed By: #### C BC #### [facility] [address] [place] [address] Dr. Karen Pierce Erythrocyte distribution width (RBC) [Ratio] 14.8 % Normal 11.0-15.0 [facility] Comment on above: Performed By: #### C BC #### [facility] [address] [place] [address] Dr. Karen Pierce Hematocrit (Bld) [Volume fraction] 39.4 % Critically low 42.0-54.0 [facility] Comment on above: Performed By: #### C BC #### [facility] [address] [place] [address] Dr. Karen Pierce Hemoglobin (Bld) [Mass/Vol] 12.6 g/dL Critically low 14.0-18.0 [facility] Comment on above: Performed By: #### C BC #### [facility] [address] [place] [address] Dr. Karen Pierce IG # 0.04 10e3/ul Critically high 0.00-0.03 [facility] Comment on above: Performed By: #### C BC #### [facility] [address] [place] [address] Dr. Karen Pierce IG % 0.4 % Normal 0.0-0.5 [facility] Comment on above: Performed By: #### C BC #### [facility] [address] [place] [address] Dr. Karne Pierce LYMPH # 1.2 103/ul Normal 1.2-3.8 [facility] Comment on above: Performed By: #### C BC #### [facility] [address] [place] [address] Dr. Karen Pierce Lymphocytes/100 WBC (Bld) 11.8 % Critically low 20.5-60.0 [facility] Comment on above: Performed By: #### C BC #### [facility] [address] [place] [address] Dr. Karen Pierce MANUAL DIFF REQ NO Normal [facility] Comment on above: Performed By: #### C BC #### [facility] [address] [place] [address] Dr. Karen Pierce MCH (RBC) [Entitic mass] 27.5 pg Normal 25.9-34.0 [facility] Comment on above: Performed By: #### C BC #### [facility] [address] [place] [address] Dr. Karen Pierce MCHC (RBC) [Mass/Vol] 32.0 g/dL Normal 29.9-35.2 [facility] Comment on above: Performed By: #### C BC #### [facility] [address] [place] [address] Dr. Karen Pierce MCV (RBC) [Entitic vol] 86.0 fL Normal 80.0-94.0 [facility] Comment on above: Performed By: #### C BC #### [facility] [address] [place] [address] Dr. Karen Pierce MONO # 1.4 103/ul Critically high 0.3-0.8 [facility] Comment on above: Performed By: #### C BC #### [facility] [address] [place] [address] Dr. Karen Pierce Monocytes/100 WBC (Bld) 13.8 % Critically high 1.7-12. 0 [facility] Comment on above: Performed By: #### C BC #### [facility] [address] [place] [address] Dr. Karen Pierce NEUT # 7.6 103/ul Critically high 1.4-6.5 [facility] Comment on above: Performed By: #### C BC #### [facility] [address] [place] [address] Dr. Karen Pierce Neutrophils/100 WBC (Bld) 73.0 % Normal 43.0-75.0 [facility] Comment on above: Performed By: #### C BC #### [facility] [address] [place], [place] [address] Dr. Karen Pierce Platelet mean volume (Bld) [Entitic vol] 10.6 fL Normal 9.5-13.5 [facility] Comment on above: Performed By: #### C BC #### [facility] [address] [place] [address] Dr. Karen Pierce PLT 193 103/ul Normal 150-450 [facility] Comment on above: Performed By: #### C BC #### [facility] [address] [address] [address] Karen Pierce RBC 4.58 106/ul Critically low 4.70-6.10 [facility] Comment on above: Performed By: #### C BC #### [facility] [address] [place] [address] Dr. Karen Pierce WBC 10.4 103/ul Normal 4.0-11.0 [facility] Comment on above: Performed By: #### C BC #### [facility] [address] [place] [address] ABD/PELVIS WO CONon [...] LORENZO SCHERER Date: 2022-05-16 09:21 Normal [facility] CULTURE URINEon 05-16-2022 CULTURE URINE Culture Observations : MODERATE GROWTH OF MIXED SKIN JAS. NO POTENTIAL PATHOGENS SEEN. Normal [facility] Comment on above: Performed By: #### U RTPCR #### [facility] [address] [address] [address] Karen Pierce Covid-19 PCR ([facility])on 04-26 SARS-CoV-2 (COVID-19) RNA KARI+probe Ql (Unsp spec) Not detected Normal NOT DETECTED [facility] Comment on above: Result Comment: When [...] for this test is supported by the Events Administrative Assistant of Health and Human Service's declaration that [...] used). Performed By: #### U A #### [facility] [address] [place] [address] Dr. Karen Pierce Creatinine [Mass/volume] in UrineOrdered By: Taz Barnes on 05-16-2022 Creatinine (U) [Mass/Vol] 68.1 mg/dL [facility] Comment on above: No reference range e stablished ER URINE PROFILEon 2 Bilirubin Ql (U) Negative Normal NEGATIVE [facility] Comment on above: Performed By: #### U RTPCR #### [facility] [address] [place] [address] Dr. Karen Pierce Clarity (U) CLEAR Normal CLEAR [facility] Comment on above: Performed By: #### U RTPCR #### [facility] [address] [place] [address] Dr. Karen Pierce Color (U) YELLOW Normal YELLOW [facility] Comment on above: Performed By: #### U RTPCR #### [facility] [address] [place] [address] Dr. Karen Pierce ERUAHD A micrscopic examina tion will be performed if indicated. Normal [facility] Comment on above: Performed By: #### U RTPCR #### [facility] [address] [place] [address] Dr. Karen Pierce Glucose Ql (U) Negative Normal NEGATIVE [facility] Comment on above: Performed By: #### U RTPCR #### [facility] [address] [place] [address] Dr. Karen Pierce Hemoglobin Ql (U) MODERATE Abnormal NEGATIVE [facility] Comment on above: Performed By: #### U RTPCR #### [facility] [address] [place] [address] Dr. Karen Pierce Ketones Ql (U) Negative Normal NEGATIVE [facility] Comment on above: Performed By: #### U RTPCR #### [facility] [address] [place] [address] Dr. Karen Pierce LEUKOCYTES LARGE Abnormal NEGATIVE [facility] Comment on above: Performed By: #### U RTPCR #### [facility] [address] [place] [address] Dr. Karen Pierce Nitrite Ql (U) Negative Normal NEGATIVE [facility] Comment on above: Performed By: #### U RTPCR #### [facility] [address] [place] [address] Dr. Karen Pierce pH (U) 5.5 [pH] Normal 5-9 [facility] Comment on above: Performed By: #### U RTPCR #### [facility] [address] [place] [address] Dr. Karen Pierce SPEC GRAVITY <=1.005 Abnormal 1.005-<=1. 025 [facility] Comment on above: Performed By: #### U RTPCR #### [facility] [address] [place] [address] Dr. Karen Pierce UA PROTEIN Negative Normal NEGATIVE/ TRACE [facility] Comment on above: Performed By: #### U RTPCR #### [facility] [address] [place] [address] Dr. Karen Pierce UR MICRO IND INDICATED Normal [facility] Comment on above: Performed By: #### U RTPCR #### [facility] [address] [place] [address] Dr. Karen Pierce Urobilinogen Qn (U) 0.2 {Tonio'U}/dL Normal 0.2 - 1. 0 [facility] Comment on above: Performed By: #### U RTPCR #### [facility] [address] [place] [address] Dr. Karen Pierce Globulin Calc (S) [Mass/Vol] Ordered By: Taz Barnes on 05-16-2022 Globulin (S) [Mass/Vol] 3.5 g/dL F [facility] - CoagulationOrde red By: Taz Barnes on 05-16-2022 PT Coag (PPP) [Time] 14.2 s 9.0-12.9 [facility] PROF 14(COMP METB)on 022 Albumin [Mass/Vol] 3.1 g/dL Critically low 3.4-5.0 [facility] Comment on above: Performed By: #### U RTPCR #### [facility] [address] [place] [address] Dr. Karen Pierce Albumin/Globulin [Mass ratio] 0.7 {ratio} Normal [facility] Comment on above: Performed By: #### U RTPCR #### [facility] [address] [place] [address] Dr. Karen Pierce ALP [Catalytic activity/Vol] 96 U/L Normal 46-116 [facility] Comment on above: Performed By: #### U RTPCR #### [facility] [address] [place] [address] Dr. Karen Pierce ALT [Catalytic activity/Vol] 46 U/L Normal 16-63 [facility] Comment on above: Performed By: #### U RTPCR #### [facility] [address] [place] [address] Dr. Karen Pierce Anion gap [Moles/Vol] 19.7 mmol/L Normal [facility] Comment on above: Performed By: #### U RTPCR #### [facility] [address] [place] [address] Dr. Karen Pierce AST [Catalytic activity/Vol] 21 U/L Normal 15-37 [facility] Comment on above: Performed By: #### U RTPCR #### [facility] [address] [place] [address] Dr. Karen Pierce Bilirubin [Mass/Vol] 0.3 mg/dL Normal 0.2-1.0 [facility] Comment on above: Performed By: #### U RTPCR #### [facility] [address] [place] [address] Dr. Karen Pierce Calcium [Mass/Vol] 8.9 mg/dL Normal 8.5-10.1 [facility] Comment on above: Performed By: #### U RTPCR #### [facility] [address] [place] [address] Dr. Karen Pierce Chloride [Moles/Vol] 101 mmol/L Normal 98-107 [facility] Comment on above: Performed By: #### U RTPCR #### [facility] [address] [place] [address] Dr. Karen Pierce CO2 [Moles/Vol] 18.3 mmol/L Critically low 21.0-32.0 [facility] Comment on above: Performed By: #### U RTPCR #### [facility] [address] [place] [address] Dr. Karen Pierce Creatinine [Mass/Vol] 8.99 mg/dL Critically high 0.70-1.30 [facility] Comment on above: Performed By: #### U RTPCR #### [facility] [address] [place] [address] Dr. Karen Pierce EGFR-AF CHINESE 7 mL/min/1.73m2 Critically low >=60 [facility] Comment on above: Performed By: #### U RTPCR #### [facility] [address] [place] [address] Dr. Karen Pierce EGFR-NON AF CHINESE 6 mL/min/1.73m2 Critically low >=60 [facility] Comment on above: Performed By: #### U RTPCR #### [facility] [address] [place] [address] Dr. Karen Pierce Globulin (S) [Mass/Vol] 4.7 g/dL Normal [facility] Comment on above: Performed By: #### U RTPCR #### [facility] [address] [place] [address] Dr. Karen Pierce Glucose [Mass/Vol] 110 mg/dL Critically high 74-106 [facility] Comment on above: Performed By: #### U RTPCR #### [facility] [address] [address] [address] Karen Pierce Potassium [Moles/Vol] 5.0 mmol/L Normal 3.5-5.1 [facility] Comment on above: Performed By: #### U RTPCR #### [facility] [address] [place] [address] Dr. Karen Pierce Protein [Mass/Vol] 7.8 g/dL Normal 6.4-8.2 [facility] Comment on above: Performed By: #### U RTPCR #### [facility] [address] [place] [address] Dr. Karen Pierce Sodium [Moles/Vol] 134 mmol/L Critically low 136-145 [facility] Comment on above: Performed By: #### U RTPCR #### [facility] [address] [place] [address] Dr. Karen Pierce Urea nitrogen [Mass/Vol] 129.0 mg/dL Critically high 7.0-18.0 [facility] Comment on above: Performed By: #### U RTPCR #### [facility] [address] [place] [address] Dr. Karen Pierce Urea nitrogen/Creatinine [Mass ratio] 14.3 mg/mg Normal [facility] Comment on above: Performed By: #### U RTPCR #### [facility] [address] [place] [address] Dr. Karen Pierce Platelet poor plasma interna tional normalized ratio (INR) by coagulation assay (relatOrdered By: Taz Barnes on 05-16-2022 INR Coag (PPP) [Relative time] 1.3 {INR} [facility] Comment on above: INR Therapeutic Rang [...] on 05-16-2022 Protein [Mass/Vol] 6.4 g/dL 6.1-7.9 [facility] Serum or plasma alanine bal otransferase measurement without P-5'-P (enzymatic activiOrdered By: Taz Barnes on 05-16-2022 ALT No additional P-5'-P [Catalytic activity/Vol] 38 U/L 10-60 [facility] Serum or plasma albumin/glob ulin mass ratioOrdered By: Taz Barnes on 05-16-2022 Albumin/Globulin [Mass ratio] 0.8 {ratio} [facility] Serum or plasma alkaline deonte sphatase measurement (enzymatic activity/volume)Ordered By: Taz Barnes on 05-16-2022 ALP [Catalytic activity/Vol] 78 U/L 32-92 [facility] Serum or plasma aspartate am inotransferase measurement (enzymatic activity/volume)Ordered By: Taz Barnes on 05-16-2022 AST [Catalytic activity/Vol] 19 U/L 10-42 [facility] Serum or plasma total biliru bin measurement (mass/volume)Ordered By: Taz Barnes on 05-16-2022 Bilirubin [Mass/Vol] 0.4 mg/dL 0.3-1.2 [facility] URINE MICROSCOPIC ONLYon BACTERIA SMALL Abnormal NONE SEEN [facility] Comment on above: Performed By: #### U RTPCR #### [facility] [address] [place] [address] Dr. Karen Pierce Bacteria identified Cx Nom (U) INDICATED Normal [facility] Comment on above: Performed By: #### U RTPCR #### [facility] [address] [address] [address] Karen Pierce CAST NONE SEEN Normal NONE SEEN [facility] Comment on above: Performed By: #### U RTPCR #### [facility] [address] [place] [address] Dr. Karen Pierce Crystals LM Nom (Urine sed) NONE SEEN Normal NONE SEEN [facility] Comment on above: Performed By: #### U RTPCR #### [facility] [address] [address] [address] Karen Pierce Epithelial cells LM Ql (Urine sed) NONE SEEN Normal NONE SEEN /RARE [facility] Comment on above: Performed By: #### U RTPCR #### [facility] [address] [address] [address] Karen Pierce MUCOUS NONE SEEN Normal NONE SEEN [facility] Comment on above: Performed By: #### U RTPCR #### [facility] [address] [address] [address] Karen Pierce RBC 20-50 Abnormal 0-2 [facility] Comment on above: Performed By: #### U RTPCR #### [facility] [address] [address] [address] Karen Pierce WBC (U) [#/Vol] /uL Abnormal NONE SEEN [facility] Comment on above: Performed By: #### U RTPCR #### [facility] [address] [address] [address] Karen Peirce Urine sodium measurement (mo les/volume)Ordered By: Taz Barnes on 05-16-2022 Sodium (U) [Moles/Vol] 42.0 mmol/L F [facility] Comment on above: No reference range [...] LORENZO SCHERER Date: 2022-05-16 09:25 Normal [facility] CBC AUTO DIFFon 05-15-2022 BASO # 0.0 103/ul Normal 0.0-0.1 [facility] Comment on above: Performed By: #### U A #### [facility] [address] [address] [address] Karen Pierce Basophils/100 WBC (Bld) 0.3 % Normal 0.2-2.0 [facility] Comment on above: Performed By: #### U A #### [facility] [address] [place] [address] Dr. Karen Pierce EO # 0.1 103/ul Normal 0.0-0.7 [facility] Comment on above: Performed By: #### U A #### [facility] [address] [place] [address] Dr. Karen Pierce Eosinophils/100 WBC (Bld) 0.7 % Critically low 0.9-7.0 [facility] Comment on above: Performed By: #### U A #### [facility] [address] [place] [address] Dr. Karen Pierce Erythrocyte distribution width (RBC) [Ratio] 14.9 % Normal 11.0-15.0 [facility] Comment on above: Performed By: #### U A #### [facility] [address] [place] [address] Dr. Karen Pierce Hematocrit (Bld) [Volume fraction] 39.8 % Critically low 42.0-54.0 [facility] Comment on above: Performed By: #### U A #### [facility] [address] [place] [address] Dr. Karen Pierce Hemoglobin (Bld) [Mass/Vol] 12.7 g/dL Critically low 14.0-18.0 [facility] Comment on above: Performed By: #### U A #### [facility] [address] [place] [address] Dr. Karen Pierce IG # 0.06 10e3/ul Critically high 0.00-0.03 [facility] Comment on above: Performed By: #### U A #### [facility] [address] [place] [address] Dr. Karen Pierce IG % 0.5 % Normal 0.0-0.5 [facility] Comment on above: Performed By: #### U A #### [facility] [address] [place] [address] Dr. Karen Pierce LYMPH # 0.9 103/ul Critically low 1.2-3.8 [facility] Comment on above: Performed By: #### U A #### [facility] [address] [place] [address] Dr. Karen Pierce Lymphocytes/100 WBC (Bld) 7.1 % Critically low 20.5-60.0 [facility] Comment on above: Performed By: #### U A #### [facility] [address] [place] [address] Dr. Karen Pierce MANUAL DIFF REQ NO Normal [facility] Comment on above: Performed By: #### U A #### [facility] [address] [place] [address] Dr. Karen Pierce MCH (RBC) [Entitic mass] 27.7 pg Normal 25.9-34.0 [facility] Comment on above: Performed By: #### U A #### [facility] [address] [place] [address] Dr. Karen Pierce MCHC (RBC) [Mass/Vol] 31.9 g/dL Normal 29.9-35.2 [facility] Comment on above: Performed By: #### U A #### [facility] [address] [place] [address] Dr. Karen Pierce MCV (RBC) [Entitic vol] 86.7 fL Normal 80.0-94.0 [facility] Comment on above: Performed By: #### U A #### [facility] [address] [place] [address] Dr. Karen Pierce MONO # 1.0 103/ul Critically high 0.3-0.8 [facility] Comment on above: Performed By: #### U A #### [facility] [address] [place] [address] Dr. Karen Pierce Monocytes/100 WBC (Bld) 8.5 % Normal 1.7-12.0 [facility] Comment on above: Performed By: #### U A #### [facility] [id number] Karen Pierce NEUT # 9.9 103/ul Critically high 1.4-6.5 [facility] Comment on above: Performed By: #### U A #### [facility] [address] [address] [address] Karen Pierce Neutrophils/100 WBC (Bld) 82.9 % Critically high 43.0-75.0 [facility] Comment on above: Performed By: #### U A #### [facility] [address] [address] [address] Karen Pierce Platelet mean volume (Bld) [Entitic vol] 9.7 fL Normal 9.5-13.5 [facility] Comment on above: Performed By: #### U A #### [facility] [address] [address] [address] Karen Pierce PLT 206 103/ul Normal 150-450 [facility] Comment on above: Performed By: #### U A #### [facility] [address] [address] [address] Karen Pierce RBC 4.59 106/ul Critically low 4.70-6.10 [facility] Comment on above: Performed By: #### U A #### [facility] [address] [address] [address] Karen Pierce WBC 11.9 103/ul Critically high 4.0-11.0 [facility] Comment on above: Performed By: #### U A #### [facility] [address] [place] [address] Dr. Karen Pierce LIPASEon 05-15-2022 Lipase [Catalytic activity/Vol] 340.0 U/L Normal 73.0-393.0 [facility] Comment on above: Performed By: #### U A #### [facility] [address] [place] [address] Dr. Karen Pierce PROF 14(COMP METB)on 022 Albumin [Mass/Vol] 3.1 g/dL Critically low 3.4-5.0 [facility] Comment on above: Performed By: #### U A #### [facility] [address] [place] [address] Dr. Karen Pierce Albumin/Globulin [Mass ratio] 0.7 {ratio} Normal [facility] Comment on above: Performed By: #### U A #### [facility] [address] [place] [address] Dr. Karen Pierce ALP [Catalytic activity/Vol] 105 U/L Normal 46-116 [facility] Comment on above: Performed By: #### U A #### [facility] [address] [place] [address] Dr. Karen Pierce ALT [Catalytic activity/Vol] 49 U/L Normal 16-63 [facility] Comment on above: Performed By: #### U A #### [facility] [address] [place] [address] Dr. Karen Pierce Anion gap [Moles/Vol] 18.4 mmol/L Normal [facility] Comment on above: Performed By: #### U A #### [facility] [address] [place] [address] Dr. Karen Pierce AST [Catalytic activity/Vol] 20 U/L Normal 15-37 [facility] Comment on above: Performed By: #### U A #### [facility] [address] [place] [address] Dr. Karen Pierce Bilirubin [Mass/Vol] 0.3 mg/dL Normal 0.2-1.0 [facility] Comment on above: Performed By: #### U A #### [facility] [address] [place] [address] Dr. Karen Pierce Calcium [Mass/Vol] 9.1 mg/dL Normal 8.5-10.1 [facility] Comment on above: Performed By: #### U A #### [facility] [address] [place] [address] Dr. Karen Pierce Chloride [Moles/Vol] 103 mmol/L Normal 98-107 [facility] Comment on above: Performed By: #### U A #### [facility] [address] [address] [address] Karen Pierce CO2 [Moles/Vol] 20.1 mmol/L Critically low 21.0-32.0 [facility] Comment on above: Performed By: #### U A #### [facility] [address] [address] [address] Karen Pierce Creatinine [Mass/Vol] 9.58 mg/dL Critically high 0.70-1.30 [facility] Comment on above: Performed By: #### U A #### [facility] [address] [address] [address] Karen Pierce EGFR-AF CHINESE 6 mL/min/1.73m2 Critically low >=60 [facility] Comment on above: Performed By: #### U A #### [facility] [address] [place] [address] Dr. Karen Pierce EGFR-NON AF CHINESE 5 mL/min/1.73m2 Critically low >=60 [facility] Comment on above: Performed By: #### U A #### [facility] [address] [address] [address] Karen Pierce Globulin (S) [Mass/Vol] 4.6 g/dL Normal [facility] Comment on above: Performed By: #### U A #### [facility] [address] [address] [address] Karen Pierce Glucose [Mass/Vol] 114 mg/dL Critically high 74-106 [facility] Comment on above: Performed By: #### U A #### [facility] [address] [address] [address] Karen Pierce Potassium [Moles/Vol] 5.5 mmol/L Critically high 3.5-5.1 [facility] Comment on above: Performed By: #### U A #### [facility] [address] [address] [address] Karen Pierce Protein [Mass/Vol] 7.7 g/dL Normal 6.4-8.2 [facility] Comment on above: Performed By: #### U A #### [facility] [address] [address] [address] Karen Pierce Sodium [Moles/Vol] 136 mmol/L Normal 136-145 [facility] Comment on above: Performed By: #### U A #### [facility] [address] [place] [address] Dr. Karen Pierce Urea nitrogen [Mass/Vol] 134.0 mg/dL Critically high 7.0-18.0 [facility] Comment on above: Performed By: #### U A #### [facility] [address] [place] [address] Dr. Karen Pierce Urea nitrogen/Creatinine [Mass ratio] 14.0 mg/mg Normal [facility] Comment on above: Performed By: #### U A #### [facility] [address] [place] [address] Dr. Karen Pierce PROF CHEM 8 (BAS METB)on Anion gap [Moles/Vol] 12.6 mmol/L Normal [facility] Comment on above: Performed By: #### B MP #### [facility] [address] [place] [address] Dr. Karen Pierce Calcium [Mass/Vol] 8.7 mg/dL Normal 8.5-10.1 [facility] Comment on above: Performed By: #### B MP #### [facility] [address] [place] [address] Dr. Karen Pierce Chloride [Moles/Vol] 103 mmol/L Normal 98-107 [facility] Comment on above: Performed By: #### B MP #### [facility] [address] [place] [address] Dr. Karen Pierce CO2 [Moles/Vol] 27.3 mmol/L Normal 21.0-32.0 [facility] Comment on above: Performed By: #### B MP #### [facility] [address] [place] [address] Dr. Karen Pierce Creatinine [Mass/Vol] 1.26 mg/dL Normal 0.70-1.30 [facility] Comment on above: Performed By: #### B MP #### [facility] [address] [address] [address] Karen Pierce EGFR-AF CHINESE >60 Normal >=60 [facility] Comment on above: Performed By: #### B MP #### [facility] [address] [address] [address] Karen Pierce EGFR-NON AF CHINESE 55 mL/min/1.73m2 Critically low >=60 [facility] Comment on above: Performed By: #### B MP #### [facility] [address] [address] [address] Karen Pierce Glucose [Mass/Vol] 111 mg/dL Critically high 74-106 [facility] Comment on above: Performed By: #### B MP #### [facility] [address] [address] [address] Karen Pierce Potassium [Moles/Vol] 3.9 mmol/L Normal 3.5-5.1 [facility] Comment on above: Performed By: #### B MP #### [facility] [address] [address] [address] Karen Pierce Sodium [Moles/Vol] 139 mmol/L Normal 136-145 [facility] Comment on above: Performed By: #### B MP #### [facility] [address] [address] [address] Karen Pierce Urea nitrogen [Mass/Vol] 21.0 mg/dL Critically high 7.0-18.0 [facility] Comment on above: Performed By: #### B MP #### [facility] [address] [address] [address] Karen Pierce Urea nitrogen/Creatinine [Mass ratio] 16.7 mg/mg Normal [facility] Comment on above: Performed By: #### B MP #### [facility] [address] [address] [address] Karen Pierce Comprehensive Metabolic Pane howard 05-11-2021 Albumin [Mass/Vol] 4.5 g/dL Normal 3.6-5.1 Melida chan [place] [employer] Comment on above: Performed By: #### C MP, KILO #### [facility] [address] [facility] [place] [id number] Albumin/Globulin [Mass ratio] 2.0 {ratio} Normal 1.0-2.5 [facility] Comment on above: Performed By: #### C MP, LIPD #### [facility] [address] [facility] [facility] [id number] ALP [Catalytic activity/Vol] 97 U/L Normal 40-129 [facility] Comment on above: Performed By: #### C MP LIPD #### [facility] [address] [facility] [id number] ALT [Catalytic activity/Vol] 18 U/L Normal 9-46 [facility] Comment on above: Result Comment: 04/25 Female reference range changed. Performed By: #### C ROBYN LIPD #### [facility] [address] [facility] [facility] [id number] Anion gap [Moles/Vol] 17 mmol/L Normal 12-20 [facility] Comment on above: Result Comment: Effe ctive 05/31/2019 reference range changed. Performed By: #### C MP LIPD #### [facility] [address] [facility] [facility] [id number] AST [Catalytic activity/Vol] 15 U/L Normal 10-40 [facility] Comment on above: Performed By: #### C ROBYN LIPD #### [facility] [address] [facility] [id number] Bilirubin [Mass/Vol] 0.55 mg/dL Normal 0.30-1.20 [facility] Comment on above: Performed By: #### C MP, LIPD #### [facility] [address] [facility] [id number] BUN/CREA 17 Ratio Normal 6-22 [facility] Comment on above: Performed By: #### C MP LIPD #### [facility] [address] [facility] [id number] Calcium [Mass/Vol] 9.8 mg/dL Normal 8.6-10.2 [facility] Comment on above: Performed By: #### C MP, LIPD #### [facility] [address] [place], [place] [id number] Chloride [Moles/Vol] 106 mmol/L Normal 98-107 [facility] Comment on above: Performed By: #### C KILO CARLSON #### [facility] [address] [place], [place] [id number] CO2 [Moles/Vol] 23 mmol/L Normal 20-31 [facility] Comment on above: Performed By: #### C KILO CARLSON #### [facility] [address] [place], [place] [id number] Creatinine [Mass/Vol] 1.2 mg/dL Normal 0.7-1.4 [facility] Comment on above: Performed By: #### C KILO CARLSON #### [facility] [address] [place], [place] [id number] eGFRAA 73 mL/min/1.73m2 Normal >60 [facility] Comment on above: Performed By: #### C KILO CARLSON #### [facility] [address] [place], [place] [id number] eGFRNAA 60 mL/min/1.73m2 Low >60 [facility] Comment on above: Performed By: #### C KILO CARLSON #### [facility] [address] [place], [place] [id number] Globulin (S) [Mass/Vol] 2.3 g/dL Normal 1.9-3.7 [facility] Comment on above: Performed By: #### C ROBYN LIPElvie #### [facility] [address] [place], [place] [id number] Glucose [Mass/Vol] 105 mg/dL High 65-99 [facility] Comment on above: Result Comment: For FASTING Glucose --- ADA reference ranges: Normal 65-99 mg/dl Prediabetes 100-125 Diabetes >/= 126 Performed By: #### C KILO CARLSON #### [facility] [address] [place], [place] [id number] Potassium [Moles/Vol] 4.1 mmol/L Normal 3.5-5.5 [facility] Comment on above: Performed By: #### C MP, LIPD #### [facility] [address] [place], [place] [id number] Protein [Mass/Vol] 6.8 g/dL Normal 6.1-8.1 [facility] Comment on above: Performed By: #### C MP, LIPD #### [facility] [address] [place], [place] [id number] Sodium [Moles/Vol] 142 mmol/L Normal 135-146 [facility] Comment on above: Performed By: #### C MP, LIPD #### [facility] [address] [place], [place] [id number] Urea nitrogen [Mass/Vol] 20 mg/dL Normal 7-25 [facility] Comment on above: Performed By: #### C MP, LIPD #### [facility] [address] [place], [place] [id number] Lipid Panelon 05-11-2021 Cholesterol [Mass/Vol] 109 mg/dL Low 125-200 [facility] Comment on above: Result Comment: Low risk < 200mg/dL Borderline risk 201-239 mg/dl High risk > or equal to 240 Performed By: #### C MP, LIPD #### [facility] [address] [place], [place] [id number] Cholesterol in HDL [Mass/Vol] 30 mg/dL Low >40 [facility] Comment on above: Result Comment: High Cardiovascular Risk HDL <40 mg/dL Low Cardiovascular Risk HDL > or equal to 60 mg/dl Performed By: #### C MP, LIPD #### [facility] [address] [place], [place] [id number] Cholesterol in LDL [Mass/Vol] 54 mg/dL Normal [facility] Comment on above: Result Comment: LDL ATP III CLASSIFICATION LDL less than 100 mg/dl Optimal LDL 100-129 mg/dl Near or above optimal LDL 130-159 Borderline high LDL 160-189 High LDL greater than 189 mg/dl Very High Performed By: #### C MP, LIPD #### [facility] [address] [facility] [id number] Cholesterol in VLDL [Mass/Vol] 25 mg/dL Normal [facility] Comment on above: Performed By: #### C ROBYN, LIPD #### [facility] [address] [place], [place] [id number] Cholesterol.total/Sonya sterol in HDL [Mass ratio] 4 {ratio} Normal [facility] [employer] Comment on above: Performed By: #### C ROBYN, LIPD #### [facility] [address] [place], [place] [id number] Triglyceride [Mass/Vol] 126 mg/dL Normal 30-150 [facility] [employer] Comment on above: Result Comment: TRIG ATPIII CLASSIFICATIONS TRIG less than 150 mg/dl Normal TRIG 150-199 mg/dl Borderline High TRIG 200-500 mg/dl High TRIG greather than 500 mg/dl Very High Performed By: #### C ROBYN, LIPD #### [facility] [address] [place], [place] [id number] Vital Signs Date Time Vital Sign Value Performing Clinician Facility 10-22-2023 10:57-0400 Body height 187.96 cm MD Stanley Emerson Work Phone: [facility] 10-22-2023 10:57-0400 Body mass index (BMI) [Ratio] 28 kg/m2 MD Stanley Emerson Work Phone: [facility] 10-22-2023 10:57-0400 Body temperature 96.8 [degF] MD Stanley Emerson Work Phone: [facility] 10-22-2023 10:57-0400 Body weight 99.1 kg MD Stanley Emerson Work Phone: [facility] 10-22-2023 10:57-0400 Diastolic blood pressure 76 mm[Hg] MD Stanley Emerson Work Phone: [facility] 10-22-2023 10:57-0400 Heart rate 71 /min MD Stanley Emerson Work Phone: [facility] 10-22-2023 10:57-0400 Respiratory rate 18 /min MD Stanley Emerson Work Phone: [facility] 10-22-2023 10:57-0400 SaO2% (BldA) [Mass fraction] 98 % MD Stanley Emerson Work Phone: [facility] 10-22-2023 10:57-0400 Systolic blood pressure 110 mm[Hg] MD Stanley Emerson Work Phone: [facility] 09-18-2023 10:47-0400 Body height 187.96 cm MD Stanley Emerson Work Phone: [facility] 09-18-2023 10:47-0400 Body mass index (BMI) [Ratio] 28.6 kg/m2 MD Stanley Emerson Work Phone: [facility] 09-18-2023 10:47-0400 Body temperature 97.8 [degF] MD Stanley Emerson Work Phone: [facility] 09-18-2023 10:47-0400 Body weight 101.15 kg MD Stanley Emerson Work Phone: [facility] 09-18-2023 10:47-0400 Diastolic blood pressure 68 mm[Hg] MD Stanley Emerson Work Phone: [facility] 09-18-2023 10:47-0400 Heart rate 64 /min MD Stanley Emerson Work Phone: [facility] 09-18-2023 10:47-0400 Respiratory rate 16 /min MD Stanley Emerson Work Phone: [facility] 09-18-2023 10:47-0400 SaO2% (BldA) [Mass fraction] 98 % MD Stanley Emerson Work Phone: [facility] 09-18-2023 10:47-0400 Systolic blood pressure 118 mm[Hg] MD Stanley Emerson Work Phone: [facility] 06-30-2023 14:17-0500 Blood Pressure Location Katia SAMUELS [facility] 06-30-2023 14:17-0500 Diastolic blood pressure 77 mm[Hg] Katia SAMUELS [facility] 06-30-2023 14:17-0500 Heart rate 70 /min Katia SAMUELS [facility] 06-30-2023 14:17-0500 Respiratory rate 16 /min Katia SAMUELS [facility] 06-30-2023 14:17-0500 Systolic blood pressure 109 mm[Hg] Katia SAMUELS [facility] 04-15-2023 14:00-0500 Body height 187.96 cm Celia [employer] Other [employer] [facility] [employer] Other 04-15-2023 14:00-0500 Body mass index (BMI) [Ratio] 28.73 kg/m2 Celia [employer] Other [employer] Other 04-15-2023 14:00-0500 Body temperature 96.8 [degF] Celia [employer] Other [employer] Other 04-15-2023 14:00-0500 Body weight 101.52 kg Celia [employer] Other [employer] Other 04-15-2023 14:00-0500 Diastolic blood pressure 100 mm[Hg] Celia [employer] Other [employer] Other 04-15-2023 14:00-0500 Respiratory rate 18 /min Suiteycelestino [employer] Other [employer] Other 04-15-2023 14:00-0500 SaO2% (BldA) [Mass fraction] 96 % Celia Ramos Other [facility] [employer] Other 04-15-2023 14:00-0500 Systolic blood pressure 161 mm[Hg] Celia Ramos Other [facility] [employer] Other 03-11-2023 13:38-0400 Blood Pressure Location Katia SAMUELS [facility] 03-11-2023 13:38-0400 Diastolic blood pressure 100 mm[Hg] Katia SAMUELS [facility] 03-11-2023 13:38-0400 Heart rate 72 /min Katia SAMUELS [facility] 03-11-2023 13:38-0400 Systolic blood pressure 150 mm[Hg] Katia SAMUELS [facility] 01-22-2023 09:57-0400 Body height 187.96 cm Stanley Emerson Work Phone: [facility] DO Work Phone: 01-22-2023 09:57-0400 Body mass index (BMI) [Ratio] 27.35 kg/m2 Stanley Emerson Work Phone: [facility] DO Work Phone: 01-22-2023 09:57-0400 Body surface area Derived from formula 2.23 m2 Stanley Emerson Work Phone: [facility] DO Work Phone: 01-22-2023 09:57-0400 Body weight 96.62 kg Stanley Emerson Work Phone: [facility] DO Work Phone: 01-22-2023 09:57-0400 Diastolic blood pressure 88 mm[Hg] Stanley Emerson Work Phone: [facility] DO Work Phone: 01-22-2023 09:57-0400 Heart rate 72 /min Stanley Emerson Work Phone: [facility] DO Work Phone: 01-22-2023 09:57-0400 Systolic blood pressure 126 mm[Hg] Stanley Emerson Work Phone: [facility] DO Work Phone: 08-21-2022 14:30-0400 Body height 187.96 cm Carlene Mezatrey Other [employer] Other 08-21-2022 14:30-0400 Body mass index (BMI) [Ratio] 26.32 kg/m2 Carlene Mezatrey Other [employer] Other 08-21-2022 14:30-0400 Body temperature 97.8 [degF] Carlene Mezatrey Other [employer] Other 08-21-2022 14:30-0400 Body weight 92.99 kg Carlene Mezatrey Other [employer] Other 08-21-2022 14:30-0400 Diastolic blood pressure 82 mm[Hg] Carlene Kasper Other [employer] Other 08-21-2022 14:30-0400 SaO2% (BldA) [Mass fraction] 96 % Carlene Kasper Other [employer] Other 08-21-2022 14:30-0400 Systolic blood pressure 124 mm[Hg] Carlene Kasper Other [facility] [employer] Other 07-31-2022 07:25-0500 Blood Pressure Location Katia SAMUELS [facility] 07-31-2022 07:25-0500 Diastolic blood pressure 89 mm[Hg] Katia SAMUELS [facility] 07-31-2022 07:25-0500 Heart rate 70 /min Katia SAMUELS [facility] 07-31-2022 07:25-0500 Respiratory rate 16 /min Katia SAMUELS [facility] 07-31-2022 07:25-0500 Systolic blood pressure 130 mm[Hg] Katia SAMUELS [facility] 07-25-2022 09:45-0500 Body height 187.96 cm Margarito Valentine Other [employer] [facility] [employer] Other 07-25-2022 09:45-0500 Body mass index (BMI) [Ratio] 26.32 kg/m2 Margarito Valentine Other [employer] [facility] [employer] Other 07-25-2022 09:45-0500 Body temperature 96.2 [degF] Margarito Valentine Other [employer] Other 07-25-2022 09:45-0500 Body weight 92.99 kg Margarito Valentine Other [employer] Other 07-25-2022 09:45-0500 Diastolic blood pressure 60 mm[Hg] Margarito Serge Other [employer] Other 07-25-2022 09:45-0500 SaO2% (BldA) [Mass fraction] 97 % Margarito Topetesarina Other [employer] Other 07-25-2022 09:45-0500 Systolic blood pressure 110 mm[Hg] Margarito Serge Other [employer] Other 07-03-2022 07:34-0500 Body temperature 98.9 [degF] MD Stanley Emerson Work Phone: [facility] 07-03-2022 07:34-0500 Diastolic blood pressure 91 mm[Hg] MD Stanley Emerson Work Phone: [facility] 07-03-2022 07:34-0500 Heart rate 87 /min MD Stanley Emerson Work Phone: [facility] 07-03-2022 07:34-0500 Respiratory rate 18 /min MD Stanley Emerson Work Phone: [facility] 07-03-2022 07:34-0500 SaO2% (BldA) [Mass fraction] 94 % MD Stanley Emerson Work Phone: [facility] 07-03-2022 07:34-0500 Systolic blood pressure 159 mm[Hg] MD Stanley Emerson Work Phone: [facility] 07-03-2022 05:46-0500 Body weight 94 kg MD Stanley Emerson Work Phone: [facility] 07-02-2022 16:27-0500 Inhaled oxygen flow rate 6 L/min MD Stanley Emerson Work Phone: [facility] 07-02-2022 10:06-0500 Body height 185.42 cm MD Stanley Emerson Work Phone: [facility] 07-02-2022 10:06-0500 Body mass index (BMI) [Ratio] 27.3 kg/m2 MD Stanley Emerson Work Phone: [facility] 06-19-2022 10:00-0500 Body height 187.96 cm Margarito Valentine Other [employer] Other 06-19-2022 10:00-0500 Body mass index (BMI) [Ratio] 26.32 kg/m2 Margarito Valentine Other [employer] Other 06-19-2022 10:00-0500 Body temperature 97.8 [degF] Margarito Valentine Other [employer] Other 06-19-2022 10:00-0500 Body weight 92.99 kg Margarito Valentine Other [employer] Other 06-19-2022 10:00-0500 Diastolic blood pressure 68 mm[Hg] Margarito Valentine Other [employer] Other 06-19-2022 10:00-0500 SaO2% (BldA) [Mass fraction] 95 % Margarito Valentine Other [employer] Other 06-19-2022 10:00-0500 Systolic blood pressure 108 mm[Hg] Margarito Valentine Other [employer] Other 06-12-2022 13:07-0500 Body height 187.96 cm MD Stanley Emerson Work Phone: [facility] 06-12-2022 13:07-0500 Body weight 93.44 kg MD Stanley Emerson Work Phone: [facility] 06-06-2022 12:00-0500 Body height 187.96 cm Margarito Serge Other [employer] Other 06-06-2022 12:00-0500 Body mass index (BMI) [Ratio] 26.32 kg/m2 Margarito Serge Other [employer] Other 06-06-2022 12:00-0500 Body temperature 97.2 [degF] Margarito Valentine Other [employer] Other 06-06-2022 12:00-0500 Body weight 92.99 kg Margarito Serge Other [employer] Other 06-06-2022 12:00-0500 Diastolic blood pressure 70 mm[Hg] Margarito Valentine Other [employer] Other 06-06-2022 12:00-0500 SaO2% (BldA) [Mass fraction] 98 % Margarito Valentine Other [employer] Other 06-06-2022 12:00-0500 Systolic blood pressure 108 mm[Hg] Margarito Valentine Other [employer] Other 06-04-2022 12:00-0500 Body height 187.96 cm Jonhcelestino [employer] Other [employer] Other 06-04-2022 12:00-0500 Body mass index (BMI) [Ratio] 26.42 kg/m2 Jonhcelestino [employer] Other [employer] Other 06-04-2022 12:00-0500 Body temperature 96.6 [degF] Jonhcelestino [employer] Other [employer] Other 06-04-2022 12:00-0500 Body weight 93.35 kg Celia Ramos Other [employer] Other 06-04-2022 12:00-0500 Diastolic blood pressure 70 mm[Hg] Celia Danielss Other [employer] Other 06-04-2022 12:00-0500 Respiratory rate 20 /min Cleia Ramos Other [employer] Other 06-04-2022 12:00-0500 SaO2% (BldA) [Mass fraction] 98 % Celia Ramos Other [employer] Other 06-04-2022 12:00-0500 Systolic blood pressure 100 mm[Hg] Celia Ramos Other [employer] Other 06-03-2022 15:38-0500 Body height 187.96 cm Stanley Emerson Work Phone: [facility] DO Work Phone: 06-03-2022 15:38-0500 Body mass index (BMI) [Ratio] 26.45 kg/m2 Stanley Emerson Work Phone: [facility] DO Work Phone: 06-03-2022 15:38-0500 Body surface area Derived from formula 2.2 m2 Stanley Emerson Work Phone: [facility] DO Work Phone: 06-03-2022 15:38-0500 Body weight 93.44 kg Stanley Emerson Work Phone: [facility] DO Work Phone: 06-03-2022 15:38-0500 Diastolic blood pressure 78 mm[Hg] Stanley Emerson Work Phone: [facility] DO Work Phone: 06-03-2022 15:38-0500 Heart rate 71 /min Stanley Emerson Work Phone: [facility] DO Work Phone: 06-03-2022 15:38-0500 Systolic blood pressure 106 mm[Hg] Stanley Emerson Work Phone: [facility] DO Work Phone: 05-22-2022 11:53-0500 Body temperature 98.8 [degF] MD Stanley Emerson Work Phone: [facility] 05-22-2022 11:53-0500 Diastolic blood pressure 72 mm[Hg] MD Stanley Emerson Work Phone: [facility] 05-22-2022 11:53-0500 Heart rate 78 /min MD Stanley Emerson Work Phone: [facility] 05-22-2022 11:53-0500 Respiratory rate 16 /min MD Stanley Emerson Work Phone: [facility] 05-22-2022 11:53-0500 SaO2% (BldA) [Mass fraction] 97 % MD Stanley Emerson Work Phone: [facility] 05-22-2022 11:53-0500 Systolic blood pressure 108 mm[Hg] MD Stanley Emerson Work Phone: [facility] 05-22-2022 06:02-0500 Body weight 88.8 kg MD Stanley Emerson Work Phone: [facility] 05-21-2022 11:48-0500 63 1 Stanley Emerson Work Phone: [facility] DO Work Phone: Comment on above: [id number] 05-17-2022 12:08-0500 Body height 187.96 cm MD Stanley Emerson Work Phone: [facility] Encounters Encounter Date Encounter Type Care Provider Facility Start: 12-02-2023 ambulatory Blanca X Torozech Facilit y:UZMA Velasquez Start: 11-19-2023 End: 11-19-2023 ambulatory STANLEY EMERSON Not Available Start: 11-04-2023 End: 11-04-2023 ambulatory Blanca X Orzech Facility:[facility] Start: 11-04-2023 End: 11-04-2023 Patient encounter procedure Blanca X Torozech [facility] [place] Start: 10-22-2023 End: 10-22-2023 ambulatory MD Stanley Emerson Work Phone: [facility] Work Phone: Start: 10-22-2023 End: 10-22-2023 Patient encounter procedure MD Stanley Emerson Work Phone: [facility] Nephrology Work Phone: Start: 10-16-2023 Non-patient / Non-visit MD Kai Emerson Work Phone[facility] Work Phone: Start: 10-07-2023 End: 10-07-2023 ambulatory Katia SAMUELS Facility:[facility] Start: 10-07-2023 End: 10-07-2023 Patient encounter procedure Katia SAMUELS [facility] [place] Start: 10-06-2023 End: 10-06-2023 ambulatory STANLEY EMERSON Not Available Start: 10-03-2023 End: 10-03-2023 Lab Drop off Katia SAMUELS [facility] Start: 10-03-2023 End: 10-03-2023 ambulatory Katia SAMUELS Facility:[facility] Start: 10-03-2023 End: 10-03-2023 Patient encounter procedure Katia SAMUELS [facility] [place] Start: 09-18-2023 Bradyarrhythmia MD Stanley billingsley Work Phone: [facility] Start: 09-18-2023 End: 09-18-2023 ambulatory MD Stanley Emerson Work Phone: [facility] Work Phone: Start: 09-18-2023 End: 09-18-2023 Patient encounter procedure MD Stanley Emerson Work Phone: [facility] Work Phone: Start: 09-11-2023 End: 09-11-2023 ambulatory Katiadesi SAMUELS Facility:[facility] Start: 09-11-2023 End: 09-11-2023 Patient encounter procedure Katia SAMUELS [facility] Start: 08-18-2023 End: 08-18-2023 ambulatory Margarito Valentine Facility:[facility] Start: 08-18-2023 End: 08-18-2023 ambulatory MD Stanley Emerson Work Phone: [facility] Work Phone: Start: 08-18-2023 End: 08-18-2023 Patient encounter procedure MD Stanley Emerson Work Phone: [facility] [place] Work Phone: Start: 08-15-2023 End: 08-15-2023 ambulatory Katia SAMUELS Facility:[facility] Start: 08-15-2023 End: 08-15-2023 Patient encounter procedure Katia SAMUELS [facility] Start: 08-04-2023 End: 08-04-2023 ambulatory EDLUDY J HEMEYER Not Available Start: 07-01-2023 End: 07-01-2023 ambulatory Katia SAMUELS Facility:[facility] Start: 06-30-2023 End: 06-30-2023 ambulatory Katia SAMUELS Facility:[facility] Start: 06-30-2023 End: 06-30-2023 Patient encounter procedure Katia SAMUELS [facility] Start: 06-16-2023 End: 06-16-2023 ambulatory Katia SAMUELS Facility:[facility] Start: 06-16-2023 End: 06-16-2023 Patient encounter procedure [facility]ELS [facility] Start: 06-10-2023 End: 06-10-2023 ambulatory Katia SAMUELS Facility:[facility] Start: 06-10-2023 End: 06-10-2023 Patient encounter procedure Katia SAMUELS [facility] Start: 05-28-2023 End: 05-28-2023 ambulatory EDLUDY J HEMEYER Not Available Start: 05-12-2023 End: 05-12-2023 ambulatory EDWARD J HEMEYER Not Available Start: 05-06-2023 End: 05-06-2023 ambulatory Celia Ramos Other [employer] Other Start: 05-06-2023 Telephone encounter Celia Ramos [facility] Start: 04-16-2023 End: 04-16-2023 ambulatory Celia Ramos Other [facility] [employer] Other Start: 04-16-2023 Telephone encounter Celia Ramos [facility] Start: 04-15-2023 End: 04-15-2023 ambulatory Celia Ramos Other [facility] [employer] Other Start: 04-15-2023 Office outpatient vi sit 25 minutes Celia Ramos [facility] Start: 04-08-2023 End: 04-08-2023 ambulatory Teo Stokes Facility:[facility] Start: 04-08-2023 End: 04-08-2023 ambulatory MD Stanley Emerson Work Phone: [facility] Work Phone: Start: 04-08-2023 End: 04-08-2023 Patient encounter procedure MD Stanley Emerson Work Phone: [facility] Start: 03-11-2023 End: 03-11-2023 Lab Drop off Katia SAMUELS [facility] Start: 03-11-2023 End: 03-11-2023 ambulatory Katia SAMUELS Facility:[facility] Start: 03-11-2023 End: 03-11-2023 Patient encounter procedure Katia SAMUELS [facility] Start: 01-22-2023 Office outpatient vi sit 25 minutes Stanley Emerson Work Phone: [place] [address] DO Work Phone: Start: 01-22-[address] Teo Stokes Facility: Start: 12-25-2022 End: 12-25-2022 ambulatory Katia SAMUELS Facility:[facility] Start: 12-25-2022 End: 12-25-2022 Patient encounter procedure Katia SAMUELS [facility] Start: 12-10-2022 End: 12-10-2022 ambulatory Katia SAMUELS Facility:[facility] Start: 12-10-2022 End: 12-10-2022 Lab Drop off Katia SAMUELS [facility] Start: 12-10-2022 End: 12-10-2022 ambulatory Katia sIabel ARLENE Facility:[facility] Start: 12-10-2022 End: 12-10-2022 Patient encounter procedure Katia Hall SAMUELS [facility] Start: 10-04-2022 End: 10-04-2022 Patient encounter procedure Katia Hall SAMUELS [facility] Start: 09-18-2022 End: 09-18-2022 Patient encounter procedure Katia Hall ARLENE [facility] [place] Start: 09-15-2022 End: 09-15-[address] STANLEY EMERSON . Facility: Start: 09-12-2022 End: 09-12-[address] STANLEY EMERSON . Facility:[facility] Start: 09-08-2022 Encounter for preprocedural laboratory examination CELIA RAMOS [facility] Start: 09-04-2022 End: 09-05-[address] STANLEY EMERSON . Facility:[facility] Start: 09-04-2022 Encounter for preprocedural cardiovascular examination DR KATIA SAMUELS . [facility] Start: 09-02-2022 End: 09-03-[address] STANLEY EMERSON . Facility:[facility] Start: 09-02-2022 End: 09-03-2022 Encounter for preprocedural laboratory examination DR STANLEY EMERSON . Facility:[facility] Start: 09-02-2022 End: 09-03-[address] STANLEY EMERSON . Facility:[facility] Start: 09-02-2022 End: 09-03-2022 Encounter for preprocedural cardiovascular examination DR STANLEY EMERSON . Facility:[facility] Start: 08-21-2022 End: 08-21-2022 ambulatory Carlene Kasper Other [employer] Other Start: 08-21-2022 Follow-up encounter Carlene Kasper [facility] Start: 08-16-2022 End: 08-16-2022 ambulatory MD Stanley Emerson Work Phone: [facility] Work Phone: Start: 08-16-2022 End: 08-16-2022 Patient encounter procedure MD Stanley Emerson Work Phone: [facility] [place] Work Phone: Start: 07-31-2022 End: 07-31-2022 Patient encounter procedure Katia SAMUELS [facility] Start: 07-25-2022 End: 07-25-2022 ambulatory Margarito Valentine Other [facility] [employer] Other Start: 07-25-2022 Postop follow up vis it related to original px Margarito Valentine [facility] Vascular Surgery Start: 07-24-2022 End: 07-24-2022 ambulatory MD Stanley Emerson Work Phone: [facility] Work Phone: Start: 07-24-2022 End: 07-24-2022 Patient encounter procedure MD Stanley Emerson Work Phone: [facility] [place] Work Phone: Start: 07-02-2022 End: 07-03-2022 Evaluation and management of inpatient MD Stanley Emerson Work Phone: [facility] Work Phone: Start: 06-21-2022 End: 06-21-2022 Patient encounter procedure MD Stanley Emerson Work Phone: [facility]-Pre-Surgical Testing Work Phone: Start: 06-19-2022 End: 06-19-2022 ambulatory Margarito Valentine Other [employer] Other Start: 06-19-2022 Office outpatient vi sit 25 minutes Margarito Valentine [facility] Vascular Surgery Start: 06-12-2022 End: 06-12-2022 ambulatory MD Stanley Emerson Work Phone: [facility] Work Phone: Start: 06-12-2022 End: 06-12-2022 Patient encounter procedure MD Stanley Emerson Work Phone: [facility] [place] Work Phone: Start: 06-11-2022 End: 06-11-2022 Patient encounter procedure HEATHER SCHWAB [facility] Start: 06-06-2022 End: 06-06-2022 ambulatory Margarito Valentine Other [employer] Other Start: 06-06-2022 Office outpatient vi sit 25 minutes Margarito Valentine [facility] Vascular Surgery Start: 06-04-2022 End: 06-04-2022 ambulatory Celia Danielss Other [employer] Other Start: 06-04-2022 Office outpatient vi sit 25 minutes Celia Ramos [facility] Nephrology Tom Start: 06-03-2022 Office outpatient vi sit 25 minutes Stanley Emerson Work Phone: [facility] 250 DO Work Phone: Start: 06-03-[address] Stanley Emerson Facility:[id number] Start: 05-21-[address] Stanley Emerson Facility:[id number] Start: 05-20-[address] Stanley Emerson Facility:90 Start: 05-19-[address] Teo Stokes Facility:[id number] Start: 05-18-[address] Teo Stokes Facility:90 Start: 05-17-[address] Stanley Emerson Facility:90 Start: 05-17-2022 Bradyarrhythmia MD Stanley billignsley Work Phone: [facility] Start: 05-17-[address] Teo Stokes Facility:[id number] Start: 05-16-2022 End: 05-22-2022 Encounter for preprocedural cardiovascular examination MD Stanley Emerson Work Phone: [facility] Start: 05-16-2022 End: 05-22-2022 Evaluation and management of inpatient MD Stanley Emerson Work Phone: [facility] Work Phone: Start: 05-16-2022 End: 05-16-[address] STANLEY EMERSON . Facility:[facility] Start: 05-15-2022 End: 05-16-[address] STANLEY EMERSON . Facility:[facility] Start: 01-04-2022 End: 01-04-[address] STANLEY EMERSON . Facility:[facility] Patient encounter status Stanley Emerson Work Phone: [facility] [facility] DO Work Phone: End: 01-22-2023 Patient encounter status Stanley Emerson Work Phone: [facility] [facility] DO Work Phone: Procedures Date Procedure Procedure Detail Performing Clinician Start: 10-03-2023 Flexible cystoscopy Rosemary SAMUELS Start: 08-18-2023 CT of abdomen and [...] Teo Stokes, Status: Pen, Time: 11:50 AM [facility] 250 DO Work Phone: Start: 04-08-2023 Bacteria identified in Urine by Culture [facility] Start: 12-10-2022 FUV, Provider: Teo Stokes, Status: Pen, Time: 10:10 AM FUV, Provider: Teo Stokes, Status: Pen, Time: 10:10 AM [facility] 250 DO Work Phone: Start: 07-24-2022 MR Abdomen WO and W contrast IV [facility] Start: 07-24-2022 MRI of abdomen with contrast MR abdomen wo/w con [facility] Start: 07-03-2022 [facility] Start: 07-02-2022 Fluoroscopy of Aorta and Bilateral Lower Extremity Arteries using Low Osmolar Contrast Fluoroscopy of Aorta and Bilateral Lower Extremity Arteries using Low Osmolar Contrast [facility] Start: 07-02-2022 Restriction of Abdominal Aorta with Intraluminal Device, Percutaneous Approach Restriction of Abdominal Aorta with Intraluminal Device, Percutaneous Approach [facility] Start: 05-22-2022 [facility] Start: 05-20-2022 Evaluation procedure [facility] Start: 05-19-2022 [facility] Start: 05-17-2022 End: 05-17-2022 [facility] Start: 05-16-2022 Referral to hydroponics grower [facility] Start: 05-16-2022 Referral to vascular surgeon [facility] Start: 05-16-2022 Hospital admission [facility] Patient Education [facility] Work Phone: Patient referral [facility] Work Phone: Renal function 2000 panel - Serum or Plasma [facility] US Thoracic and abdominal aorta [facility] Immunizations Immunization Date Immunization Notes Care Provider Fa cility 03-29-2022 Pfizer COVID-19 Vac Bivalent 30 MCG/0.3ML Intramuscular Suspension Stanley Emerson Work Phone: [facility] 03-16-2022 influenza virus vacc ine, unspecified formulation Katia ARLENE [facility] 03-16-2022 influenza, seasonal, injectable Stanley Emerson Work Phone: [facility] 250 DO Work Phone: 03-06-2022 Fluzone High-Dose Quadrivalent 0.7 ML Intramuscular Suspension Prefilled Syringe Stanley Emerson Work Phone: [facility] 250 DO Work Phone: 03-06-2022 influenza virus vacc ine, unspecified formulation HEATHER SCHWAB [facility] 10-03-2021 Comirnaty 30 MCG/0.3 ML Intramuscular Suspension Stanley Emerson Work Phone: [facility] 250 DO Work Phone: 10-03-2021 COVID-19 mRNATaniya (Pfizer) MD Stanley Emerson Work Phone: [facility] 10-03-2021 SARS-CoV-2 mRNA (vcsjmnweydc-hiux-vhnwkv e) vaccine HEATHER SCHWAB [facility] 04-23-2021 pneumococcal polysaccharide vaccine, 23 valent Stanley Emerson Work Phone: [facility] 02-22-2021 influenza virus vacc ine, unspecified formulation Katia SAMUELS [facility] 02-22-2021 influenza, injectabl e, quadrivalent, preservative free Stanley J TRAKLOKjose cruz Work Phone: [facility] 250 DO Work Phone: 02-21-2021 Pfizer-BioNTech COVI D-19 Vacc 30 MCG/0.3ML Intramuscular Suspension Stanley Emerson Work Phone: [facility] Comment on above: Result Comment: 2022: [id number] 07-28-2020 Pfizer-BioNTech COVI D-19 Vacc 30 MCG/0.3ML Intramuscular Suspension Stanley Rich TRAKLOKyer Work Phone: [facility] 07-07-2020 Pfizer-BioNTech COVI D-19 Vacc 30 MCG/0.3ML Intramuscular Suspension Resoomayludy Rich [employer] Work Phone: [facility] 02-22-2020 influenza virus vacc ine, unspecified formulation HEATHERMANDI SCHWAB [facility] 02-22-2020 Seasonal, quadrivale nt, recombinant, injectable influenza vaccine, preservative free Resoomayludy Rich TRAKLOKjose cruz Work Phone: [facility] 250 DO Work Phone: Payers Date Payer Category Payer Self-pay 2017 Medicare [id number] 1959 Medicare [id number] 1959 Private Health Insurance [id number] 1943 Unknown [id number] 2.16.840.1.973793.3.579.2.593 1943 Unknown [id number] 2.16.840.1.323795.3.579.2.593 1943 Unknown [id number] 2.16.840.1.520361.3.579.2.593 1943 Unknown [id number] 2.16.840.1.463024.3.579.2.593 1943 Unknown [id number] 2.16.840.1.647124.3.579.2.593 1943 Unknown [id number] 2.16840.1.862644.3.579.2.593 1943 Unknown [id number] 2..840.1.298749.3.579.2.593 1943 Unknown [id number] 2.840.1.703070.3.579.2.593 1943 Unknown [id number] 2.840.1.487553.3.579.2.356 1943 Unknown [id number] 2.840.1.969950.3.579.2.356 1943 Unknown [id number] 2.840.1.051107.3.579.2.356 1943 Unknown [id number] 2.840.1.655927.3.579.2.356 1943 Unknown [id number] 2.840.1.243906.3.579.2.356 1943 Unknown [id number] 2.840.1.785665.3.579.2.356 1943 Unknown [id number] .840.1.837869.3.579.2.356 1943 Unknown [id number] 2.16840.1.915845.3.579.2.356 1943 Unknown [id number] 2.840.1.807701.3.579.2.727 1943 Unknown [id number] 2.840.1.065061.3.579.2.727 1943 Unknown [id number] 2.16.840.1.774482.3.579.2.727 1943 Unknown [id number] 2.16.840.1.216056.3.579.2.727 1943 Unknown [id number] 2.16.840.1.929779.3.579.2.72 1943 Unknown [id number] 2.16.840.1.077016.3.579.2.72 1943 Unknown [id number] 2.16.840.1.534776.3.579.2.72 1943 Unknown [id number] 2.16.840.1.395211.3.579.2.727 1943 Unknown [id number] 2.840.1.975042.3.579.2.72 1943 Unknown [id number] 2.16.840.1.661320.3.579.2.727 1943 Unknown [id number] 2.16840.1.149624.3.579.2.72 1943 Unknown [id number] 2.16.840.1.593020.3.579.2.727 1943 Unknown [id number] 2.840.1.476466.3.579.2.72 1943 Unknown [id number] 2.16.840.1.808661.3.579.2.727 1943 Unknown [id number] 2.16.840.1.974135.3.579.2.727 1943 Unknown [id number] 2.16840.1.664946.3.579.2.727 1943 Unknown [id number] 2.16.840.1.629625.3.579.2.125 9 1943 Unknown [id number] 2.16.840.1.721056.3.579.2.125 9 1943 Unknown [id number] 2.16.840.1.092525.3.579.2.125 9 1943 Unknown [id number] 2.16.840.1.795471.3.579.2.125 9 1943 Unknown [id number] 2.16.840.1.821414.3.579.2.125 9 Medicare Medicare Nonpatient [id number] 6M [id number] Unknown Unknown [id number] Unknown [id number] 2.16.840.1.944175.3.579.2.531 Unknown [id number] 2..840.1.343035.3.579.2.531 Social History Date Type Detail Facility Daily caffeine consumption Daily caffeine consumption [facility] 250 DO Work Phone: Comment on above: 3-4 cups coffee kellen y; 05/17/23 quit; 1/2 dozen cigarettes ; Start: 06-11-2022 End: 03-11-2023 Tobacco smoking status Heavy tobacco smoker (finding) [facility] Sex Assigned At Male [facility] Start: 05-17-2022 End: 10-22-2023 Tobacco smoking status NHIS Smoker (finding) [facility] Start: 1945 Sex Assigned At Male [facility] Start: 07-02-2022 End: 07-02-2022 Tobacco smoking status NHIS Ex-smoker (finding) [facility] Tobacco smoking status Never [facility] Medical Equipment Procedure Code Equipment Code Equipment Origin al Text Equipment Identifier Dates Percutaneous endovascular repair of abdominal aortic aneurysm (AAA) Abdominal aorta endovascular stent-graft ()[id number] FDA Start: 07-02-2022 Percutaneous endovascular repair of abdominal aortic aneurysm (AAA) Abdominal aorta endovascular stent-graft ()[id number] FDA Start: 07-02-2022 Percutaneous endovascular repair of abdominal aortic aneurysm (AAA) Abdominal aorta endovascular stent-graft ()[id number] FDA Start: 07-02-2022 Percutaneous endovascular repair of abdominal aortic aneurysm (AAA) Soft-tissue/mesh anchor, non-bioabsorbable ()[id number] FDA Start: 07-02-2022 Goals Date Patient Goal Desired Activity /State Functional Status Date Assessment Result Facility 10-03-2023 Functional Status N/A [facility] 06-30-2023 Functional Status N/A [facility] 06-10-2023 Functional Status N/A [facility] 03-11-2023 Functional Status N/A [facility] 12-10-2022 Functional Status N/A [facility] 09-18-2022 Functional Status N/A [facility] 07-31-2022 Functional Status N/A [facility] 07-03-2022 Functional status Patient at Baseline [facility] Work Phone: 06-11-2022 Functional Status N/A [facility] 05-16-2022 Functional status Patient Not at Baseline [facility] Work Phone: Mental Status Date Assessment Result Facility 07-03-2022 Cognitive function Cognitive Sta tus Patient at Baseline [facility] Work Phone: 05-16-2022 Cognitive function Cognitive Sta tus Patient at Baseline [facility] Work Phone: Clinical Notes 06-04-2022 to [...] Follow these instructions at home: Medicines Take muhr-odh-wruximi and prescription medicines only as told by [...] provider. Document Revised: 01/31/2021 Document Reviewed: 01/31/2021 Setup Patient Education [address] Follow Up Care 08/15/2023 11:04:15 With:ARLENE CASILLAS, Katia Hall, URL Address: [facility] [address] , [place] [address]- [phone] When: Unknown [facility] 06-30-2023 [facility] Discharg e instructions Patient Education 06/30/2023 14:29:22 [...] Follow these instructions at home: Medicines Take kqxt-sup-oulenso and prescription medicines only as told by [...] provider. Document Revised: 01/31/2021 Document Reviewed: 01/31/2021 Setup Patient Education [address] 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 6. Keep the drainage bag below the [...] SAMUELS Address: [facility] [address] [place] [address]- Business (1) When:06/24/2023 15:15:55 Comments:for zapien removal [facility] 06-10-2023 Note [id number] [facility] 06-10-2023 Note Custom [facility] Post-Procedure Instructions [...] circul (more content not included)... [facility] 05-06-2023 Evaluation note Encounter Date Diagnosis Assessment Notes Apr, Primary hypertension (ICD-10 - I10) [employer] Other 11-21-2023 Evaluation note* Encounter Date Diagnosis [...] supplement. I asked the patient to continue ogty-qgq-rhyfyvg iron supplement once or twice daily Mar, Primary hypertension (ICD-10 - I10) BP is elevated. Will start Norvasc 5 mg PO daily. i asked the patient to monitor Bp closely with tapering steroid dose [employer] Other 10-17-2023 Hospital Discharge instructions Patient Education [...] including vitamins, herbs, eye drops, creams, and ijrb-jsz-snuskbk medicines. Any problems you or family members [...] provider tells you to take them. Taking dkhd-fqw-pyzbfpx medicines, vitamins, herbs, and supplements. Surgery safety [...] provider. Document Revised: 02/05/2022 Document Reviewed: 02/05/2022 Setup Patient Education [address] 03/11/2023 14:15:06 Benign Prostatic Hyperplasia Benign Prostatic [...] urethra. Follow these instructions at home: Take fwpz-cjp-fofhmao and prescription medicines only as told by [...] provider. Document Revised: 11/28/2021 Document Reviewed: 11/28/2021 [employer] Patient Education [address] Follow Up Care 02/07/2023 16:01:50 With:ARLENE CASILLAS, Katia Hall, URL Address: [facility] [address], [place] [address]- When:Within 3 Month(s) Comments:Sched cysto/FISH/Cytol/BT check [facility] [place] 10-17-2023 Evaluation + Plan note Diagnostic Tests Pending * [facility] Fish and Urine Cyto ([facility]) 03/11/23 [facility]08-15-2023 Note [id number]:[id number] 12-10-2022 Evaluation + Plan note Diagnostic Tests Pending * [facility] Fish and Urine Cyto ([facility]) 12/10/22 [facility]07-18-2023 Hospital Discharge instructions Patient Education 12/10/2022 [...] if anything looks unusual. Men with a wprxou-nyrk-qitppb risk for skin cancer may want to see a fiscal specialist (human resource professional) for an annual body check. What are the benefits of screening? Cancer screening is done to look for cancer in the very early stages, before it spreads and becomesharder to treat and before you would start to notice symptoms. Finding cancer early improves the chances of successful treatment. It may save your life. Where to find more information [employer]: www.cancer.org Centers for Disease Control and Prevention: www.cdc.gov National Cancer [place]: www.cancer.gov Contact a health care provider if: [...] provider. Document Revised: 10/08/2021 Document Reviewed: 04/07/2020 [employer] Patient Education [address] Follow Up Care 11/15/2022 14:27:10 With:ARLENE CASILLAS, Katia Hall, URL Address: [facility] [address], [place] [address]- When: Unknown [facility] [facility] 04-26-2023 Hospital Discharge instructions Patient Education 09/18/2022 [...] cells. Follow these instructions at home: Take xwhe-fqh-nxfrffg and prescription medicines only as told by [...] is important. Where to find more information [employer] (ACS): cancer.org National Cancer [place] (NCI): cancer.gov Contact a health care provider [...] provider. Document Revised: 04/22/2022 Document Reviewed: 04/22/2022 Setup Patient Education [address] Follow Up Care 08/26/2022 14:12:46 With:ARLENE CASILLAS, Katia Hall, URL Address: [facility] [address] , [facility], [place] [address]- When: Unknown [facility] 04-10-2023 NoteEXAM: XR CHEST 2 V HISTORY: Pre-surgery evaluation COMPARISON: None. TECHNIQUE: PA and lateral views of the chest. FINDINGS: The cardiomediastinal silhouette is normal. No focal consolidation is identified. There is no pneumothorax. No pleural effusion is noted. The osseous structures are intact. IMPRESSION: No acute cardiopulmonary process. Electronically authenticated by: CORKY FORD Date: 2022-09-02 14:17[facility]03-29-2023 Evaluation note* Encounter Date Diagnosis Assessment [...] have his bladder tumor removal as scheduled. [employer] Other 03-08-2023 Evaluation + Plan note Diagnostic Tests Pending * UroVysion Fish and Urine Cyto ([facility]) 07/31/22 [facility] 03-08-2023 Hospital Discharge instructions Patient Education [...] including vitamins, herbs, eye drops, creams, and bbsf-vzr-pjxswfq medicines. Any problems you or family members [...] provider tells you to take them. Taking acvz-qvx-kqcyidt medicines, vitamins, herbs, and supplements. Tests You [...] 03/08/2010 Document Revised: 12/11/2018 Document Reviewed: 12/11/2018 Setup Patient Education [address] Follow Up Care 07/25/2022 10:56:51 With:ARLENE CASILLAS, Katia Hall, URL Address: [facility] [address], [place] [address]- When: Unknown [facility] 03-02-2023 Evaluation note* Encounter Date Diagnosis [...] some bladder issues. I did call the [employer]. The device is compatible up to 3 Maggi for MRI. I explained this to the family and the patient. Jul, Other specified postprocedural states (ICD-10 - Z98.890) Jul, Personal history of other diseases of the circulatory system (ICD-10 - Z86.79) [employer] Other [facility]* Encounter Date Diagnosis Assessment [...] plan to do this percutaneously under MAC. [employer] Other 01-17-2023 Hospital Discharge instructions Patient Education [...] including vitamins, herbs, eye drops, creams, and enib-qpe-phqqnyn medicines. Any problems you or family members [...] provider tells you to take them. ?Taking epze-cip-brhnpuf medicines, vitamins, herbs, and supplements. 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 [employer] Other 01-10-2023 Evaluation note* Encounter Date Diagnosis [...] (ICD-10 - E78.5) Patient is on statin [employer] Other Evaluation + Plan note No data available for this section [facility] evaluation + Plan note Future Appointments Appointment Date:10/04/2022 10:00:00 AM Scheduled Provider: Location:[facility] Appointment Type:URO Nurse Visit [facility] Evaluation + Plan note Future Appointments Appointment Date:06/16/2023 10:00:00 AM Scheduled Provider: Location:[facility] Appointment Type:URO Nurse Visit Appointment Date:06/30/2023 01:30:00 PM Scheduled Provider:Katia SAMUELS MD Location:[facility] Appointment Type:URO Office Visit Diagnostic Tests Pending * UroVysion Fish and Urine Cyto ([facility]) [facility]ments Appointment Date:06/30/2023 01:30:00 PM Scheduled Provider:Katia SAMUELS MD Location:[facility] Appointment Type:URO Office Visit [facility] evaluation + Plan note Future Appointments Appointment Date:07/01/2023 08:30:00 AM Scheduled Provider: Location:[facility] Appointment Type:URO Nurse Visit [facility] evaluation + Plan note Future Appointments Appointment Date:09/09/2023 02:15:00 PM Scheduled Provider:Katia SAMUELS MD Location:[facility] Appointment Type:URO Procedure 15 min [facility] Evaluation + Plan note Future Appointments Appointment Date:10/07/2023 02:45:00 PM Scheduled Provider:Katia SAMUELS MD Location:[facility] Appointment Type:URO Procedure 15 min [facility] evaluation + Plan note Future Appointments Appointment Date:10/31/2023 11:00:00 AM Scheduled Provider: Location:[facility] Appointment Type:URO Nurse Visit [facility] Evaluation + Plan note Future Appointments Appointment Date:10/31/2023 11:00:00 AM Scheduled Provider: Location:[facility] Appointment Type:URO Nurse Visit Diagnostic Tests Pending * UroVysion Fish and Urine Cyto ([facility]) 10[facility]03[facility] App[facility]ments Appointment Date:11/04/2023 10:30:00 AM Scheduled Provider: Location:[facility] Appointment Type:URO Nurse Visit [facility] Evaluation + Plan note Future Appointments Appointment Date:12/02/2023 11:00:00 AM Scheduled Provider:TC Boles APRN, [place] X Location:[facility] Appointment Type:URO Office Visit [facility] evaluation note* Diagnosis Onset Date Resolution [...] tract infection) acute Vitamin B 12 deficiency [facility] Work Phone: Evaluation noteNo assessment information available [facility] Work Phone: evaluation noteNo InformationNortJefferson [facility] [employer] Other Evaluation note* Diagnosis Onset Date Resolution Status Status post endovascular aneurysm repair (EVAR) acute Abdominal aortic aneurysm without rupture acute Anemia acute Chronic kidney disease, stage 3b acute Hyperlipidemia acute Hypertensive nephropathy acu te Iron deficiency acute Obstructive nephropathy [facility] Work Phone: history general Narrative - Reported* Type Description [...] INJ URY, 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, 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 [facility] [employer] Other history general Narrative - Reported* Type [...] INJ URY, 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, 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 [employer] Other History general Narrative - Reported* Type [...] 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 Hospitalization History SEE ABOVE [employer] Other Hospital Discharge instructions No data available for this section [facility] Progress note No data available for this section [facility] Summary Purpose Family History No Family [...] I71.4 1 YR F/U AAA; CTA AT [facility] Chief Complaint I71.4 1 YR F/U AAA; CTA AT [facility] RENAL 6 month f/u Reason for Visit Status post endovasc ular aneurysm repair (EVAR) Abdominal aortic aneurysm without rupture Anemia Chronic kidney disease, stage 3b Hyperlipidemia Hypertensive nephropathy Iron deficiency Obstructive nephropathy Chief Complaint * ALEX ANDERSON is being [...] section and content) DATE CREATED AUTHOR 05/12/2021 [facility] dical Specialist DATE CREATED AUTHOR AUTHOR'S ORGANIZ ATION 09/23/2022 [facility] DATE CREATED AUTHOR AUTHOR'S ORGANIZ ATION 01/23/2023 [facility] DATE CREATED AUTHOR AUTHOR'S ORGANIZ ATION 01/23/2023 [employer] DATE CREATED AUTHOR AUTHOR'S ORGANIZ ATION 08/22/2023 [facility] DATE CREATED AUTHOR AUTHOR'S ORGANIZ ATION [facility]/04/2023 [facility] DATE CREATED AUTHOR AUTHOR'S ORGANIZ ATION 11/05/2023 [facility] DATE CREATED AUTHOR AUTHOR'S ORGANIZ ATION 11/20/2023 [facility] dical Specialists EPIC Patient Care team informatio n (unrecognized section [...] September 18, 2023 End: September 18, 2023 Team Status: Active Member Role Status Dates Stanley Emerson MD Primary Care Provider Active Start: October 16, 2023 Celia Ramos MD Attending Provider Active Star t: October 16, 2023 Team Status: Inactive Member Role Status Dates Stanley Emerson MD Primary Care Provider Active Start: October 22, 2023 End: October 22, 2023 Celia Ramos MD Attending Provider Active Star t: October 22, 2023 End: October 22, 2023 REASON FOR VISIT (unrecogniz ed section and content) RENAL HOSP F/UDiscuss AAA re pairTo go over CTA results3 week f/u EVAR4 WK FOLLOW UP; CTA [facility] 08/16/22RENAL 6 month Follow upBPREFILL Goals [...] BE BASED ON THE PRIMARY CLINICAL RECORDS. [facility] [employer] [facility]. provides no warranty or guarantee of the accuracy or completeness of information in this document.
--- NOTE | 2023-11-28 17:32 | PC.NURSE ---
18 occitan coude zapien placed after removal of catheter that the patient came in with. Balloon of zapien inflated to 16ml. Pt tolerated well with minimal blood from trauma of insertion due to prostate resistance. Pt leg bag replaced and d/c paperwork given and explained to to follow up with urology
== END 2023-11-28 17:36 | disposition home or self-care (01) ==
PROVIDERS: Emergency Provider Emergency Medicine Emergency Medical Services; PCP Family Medicine
DX: T83.031A Leakage of indwelling urethral catheter, initial encounter (principal); F17.200 Nicotine dependence, unspecified, uncomplicated
CPT/HCPCS: 51702; 99284

== ENCOUNTER 2024-01-16 09:12 | Emergency (ER) | payer MEDICARE, OTHER, SELFPAY ==
[2024-01-16] VITALS (13 sets, daily range): BP systolic 89–111; BP diastolic 61–77; PULSE 70–93; O2SAT 94–98; BMI 29.5
--- NOTE | 2024-01-16 09:26 | ECG_ITS ---
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
--- NOTE | 2024-01-16 09:37 | ED.CHESTPAI1 ---
HPI - Chest Pain General Chief Complaint: Chest Pain Stated Complaint: CHEST PAIN, NAUSEA Time Seen by Provider: 01/16/24 09:25 Source: patient Mode of arrival: walk-in Limitations: no limitations History of Present Illness HPI narrative: The patient presenting to us with a chest pain that started last night almost around 11 PM it is radiating to the back associated with nausea The patient did vomit this morning only retching this morning once and he did not take any of his medication today and he did not eat today yet The patient have history of hypertension hyperlipidemia had never had any history of coronary artery disease He mentioned that the pain comes worse whenever he take a deep breath Related Data Home Medications ?Medication ?Instructions ?Recorded ?Confirmed albuterol sulfate 90 mcg/actuation 1 inh inhalation Q6H PRN 04/13/23 11/28/23 aerosol inhaler bronchospasm aspirin 81 mg tablet,delayed 81 mg PO DAILY 04/13/23 11/28/23 release (Ecotrin Low Strength) metoprolol tartrate 50 mg tablet 50 mg PO Q12H 04/13/23 11/28/23 simvastatin 20 mg tablet 20 mg PO DAILY 04/13/23 11/28/23 amlodipine 5 mg tablet 5 mg PO DAILY 07/30/23 11/28/23 spironolactone 25 mg tablet 25 mg PO DAILY 09/26/23 11/28/23 Allergies Allergy/AdvReac Type Severity Reaction Status Date / Time No Known Drug Allergies Allergy Verified 09/26/23 20:49 Review of Systems ROS Status of ROS 10 or more systems reviewed and unremarkable except as noted in history and [facility] Smoking status: Current every day smoker Exam Narrative Exam Narrative: Nurses notes and vital signs reviewed and patient is not hypoxic. General: Well-appearing and in no apparent distress. Skin: Warm, dry, no pallor noted. No rash. Head: Normocephalic, atraumatic. Neck: Supple, non-tender. Eye: Pupils are equal, round and EOMI. No scleral icterus. Ears, Nose, Mouth, and Throat: TM are clear, no nasal mucosal hypertrophy. Oral mucosa is moist, no posterior oropharynx erythema, uvula is mid-line Cardiovascular: Regular Rate and Rhythm without murmur, gallop or rub. Respiratory: No accessory muscle use or respiratory distress. Lungs are clear to auscultation, no wheezing, rales or rhonchi Chest Wall: no tenderness Back: No midline thoracic or lumbar vertebral tenderness. No CVA tenderness Musculoskeletal: normal ROM, no calf or popliteal tenderness, no lower extremity edema/swelling GI: Abdomen is soft, non-distended. Normal bowel sounds. No masses appreciated. No tenderness to palpation. No rebound, guarding, or rigidity noted. Neurological: A&O x4. No cranial nerve dysfunction observed. No truncal ataxia. Moves all extremities. Sensation intact. Psychiatric: Cooperative and interactive. Normal mood and affect. Constitutional Vital Signs, click to edit/add: Last Vital Signs Pulse 76 01/16/24 09:21 Resp 20 01/16/24 09:21 BP 111/77 01/16/24 09:21 Pulse Ox 96 01/16/24 09:31 O2 Del Method Room Air 01/16/24 09:31 Course Vital Signs Vital signs: Vital Signs Pulse Rate 76 01/16/24 09:21 Respiratory Rate 20 01/16/24 09:21 Blood Pressure 111/77 01/16/24 09:21 Pulse Oximetry 98 01/16/24 09:21 Oxygen Delivery Method Room Air 01/16/24 09:21 Pulse Rate 76 01/16/24 09:21 Respiratory Rate 20 01/16/24 09:21 Blood Pressure 111/77 01/16/24 09:21 Pulse Oximetry 96 01/16/24 09:31 Oxygen Delivery Method Room Air 01/16/24 09:31 MDM - Chest Pain MDM Narrative Medical decision making narrative: The patient EKG showing STEMI elevation in lead V2, V3, V4 and V5 there is also a STEMI elevation in aVL and some mild elevation in 2 and aVF The patient presenting to us with atypical STEMI and his case was discussed with Dr. Pruett and cardiology interventional service the patient will be transferred at right now to [facility] as soon as possible The patient was started on heparin bolus of 4000 units as well as aspirin 324 mg of Brilinta 180 mg one-time IV fluids started because of the patient blood pressure is on the lower side in addition to the fact that the patient will be provided with morphine in case needed for pain Discharge Plan Discharge Chief Complaint: Chest Pain Clinical Impression: ST elevation (STEMI) myocardial infarction Qualifiers: Involved coronary artery: unspecified coronary artery Qualified Code(s): I21.3 - ST elevation (STEMI) myocardial infarction of unspecified site Patient Disposition: [facility] Time of Disposition Decision: 09:36
[2024-01-16 09:40] LABS: Hematocrit 44.1 % (42.0-54.0); Hemoglobin 14.3 g/dL (14.0-18.0); Mean Corpuscular HGB Conc 32.4 g/dL (29.9-35.2); Mean Corpuscular Hemoglobin 28.8 pg (25.9-34.0); Mean Corpuscular Volume 88.9 fL (80.0-94.0); Mean Platelet Volume 10.9 fL (9.5-13.5); Platelet Count 163 10^3/uL (150-450); Red Blood Count 4.96 10^6/uL (4.70-6.10); Red Cell Distribution Width 14.8 % (11.0-15.0); White Blood Count 18.9 10^3/uL (4.0-11.0)
[2024-01-16] MEDS: ASPIRIN 81 MG TAB.CHEW 324 MG PO (09:41)
[2024-01-16] MEDS: HEPARIN SODIUM (PORCINE) 5,000 UNIT/ML VIAL 4000 UNIT IV (09:42)
[2024-01-16] MEDS: TICAGRELOR 90 MG TABLET 180 MG PO (09:42)
[2024-01-16] MEDS: 0.9 % SODIUM CHLORIDE 1,000 ML 1000 ML IV (09:42)
[2024-01-16] MEDS: ONDANSETRON PF 4 MG/2 ML VIAL IV (09:44)
[2024-01-16] MEDS: MORPHINE SULFATE 2 MG/ML SYRINGE IV (09:44)
--- NOTE | 2024-01-16 09:45 | XR_ITS ---
The [address] [address] Patient Name: ALEX GRAJEDA MRN: [id number] date: 1945 Sex: M Assigned Patient Location: ED.MAIN Current Patient Location: ER Accession/Order Number: [id number] Exam Date: 01/16/2024 09:40 Report Date: 01/16/2024 09:54 At the request of: RHEA LOZADA Procedure: XR chest 1V EXAMINATION: XR chest 1V HISTORY: cp COMPARISON: No relevant comparison available. TECHNIQUE: AP portable FINDINGS: LUNGS: No significant pulmonary parenchymal abnormalities. VASCULATURE: No increased pulmonary vasculature. PLEURA: No pneumothorax, effusion, or pleural thickening. CARDIAC: No cardiomegaly or cardiac silhouette abnormality. MEDIASTINUM: No visible mass or adenopathy. Aortic atherosclerosis BONES: No fracture or visible bone lesion. OTHER: Negative. XR/XR chest 1V IMPRESSION: No acute cardiopulmonary process Electronically authenticated by: ALEX ORTIZ Date: 01/16/2024 09:54
[2024-01-16 09:54] LABS: INR 1.07; Prothrombin Time 11.3 sec (9.0-11.6)
[2024-01-16 10:02] LABS: Alanine Aminotransferase 67 U/L (16-63); Albumin Globulin Ratio 1.1; Albumin Level 3.9 g/dL (3.4-5.0); Alkaline Phosphatase 88 U/L (46-116); Anion Gap 15.8; Aspartate Amino Transferase 343 U/L (15-37); Bilirubin Total 0.9 mg/dL (0.2-1.0); Calcium 9.9 mg/dL (8.5-10.1); Carbon Dioxide 23.6 mmol/L (21.0-32.0); Chloride 99 mmol/L (98-107); Estimated GFR (African America 50 (>=60); Estimated GFR (Non-African Ame 41 (>=60); Globulin 3.6 g/dL; Glucose 163 mg/dL (74-106); Potassium 4.4 mmol/L (3.5-5.1); Sodium 134 mmol/L (136-145); Total Protein 7.5 g/dL (6.4-8.2)
[2024-01-16 10:08] LABS: Partial Thromboplastin Time 31.1 sec (22.3-36.2)
[2024-01-16 10:18] LABS: Troponin I High Sensitivity 89927.3 pg/mL (4.0-76.1)
[2024-01-16 10:35] LABS: Band Neutrophils Absolute 0.2 10^3/uL (0.0-0.3); Lymphocytes Absolute Manual 0.56 10^3/uL (1.20-3.80); Monocytes Absolute Manual 2.07 10^3/uL (0.30-0.80); Segmented Neut Absolute Manual 16.06 10^3/uL (1.4-6.5)
== END 2024-01-16 10:30 | disposition short-term general hospital (02) ==
PROVIDERS: Emergency Provider Emergency Medicine; PCP Family Medicine
DX: I21.3 ST elevation (STEMI) myocardial infarction of unspecified site (principal); F17.200 Nicotine dependence, unspecified, uncomplicated
CPT/HCPCS: 36415; 71045; 80053; 80307; 82550; 82553; 83874; 84484; 85007; 85027; 85610; 85730; 93005; 96361; 96374; 96375; 99285; J1644; J2270; J2405

== ENCOUNTER 2024-01-25 16:55 | Emergency (ER) | payer MEDICARE, OTHER, SELFPAY ==
[2024-01-25 17:06] VITALS: BP 111/75; PULSE 70; TEMP 36.7; O2SAT 97; BMI 30.9
--- OUTSIDE RECORDS SUMMARY | 2024-01-25 17:14 | XMS_ITS | CCD ---
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 Name Role Phone Stanley Emerson Unavailable Unavailable Unavailable STANLEY EMERSON Primary Care Physician Unavail able MD Stanley Emerson Primary Care Provider MD Taz Barnes Admit Provider MD Margarito Valentine Other Provider MD Janice Gonzalez Other Provider DO Bernabe Cr Attending Provider MD Margarito Valentine Attending Provider MD Margarito Valentine Admit Provider [phone] Celia Griffin Unavailable Margarito Valentine Unavailable [phone] MOMO Omalley Attending Provider MD Stanley Emerson Primary Care Provider [phone] MD Taz Barnes Admit Provider MD Margarito Valentine Other Provider MD Janice Gonzalez Other Provider DO Bernabe Cr Attending Provider MD Margarito Valentine Attending Provider MD Margarito Valentine Admit Provider MOMO Omalley Attending Provider Carlene Kasper Unavailable HEMEYER ., DR PETERSON Primary Care Unavailable JACOBS ., DR MONTALVO Admitting Unavailable JACOBS ., DR MONTALVO Attending Unavailable JACOBS ., DR MONTALVO Consulting Unavailable Corky Ford Consulting Unavailable HEMEYER ., DR PETERSON Primary Care Unavailable JACOBS ., DR MONTALVO Admitting Unavailable JACOBS ., DR MONTALVO Attending Unavailable JACOBS ., DR MONTALVO Consulting Unavailable LOAN, JAZZY [...] Araceli vailable Idania, Dr. Stanley Mercado Primary [facility] Unava ilable Hemeyer, Dr. Stanley Mercado Primary Care Unava ilable Hemeyer, Dr. Stanley Mercado Primary Care Unava ilable Stokes, Dr. Teo Poon Attending Araceli vailable Stokes, Dr. Teo Poon Referring Araceli vailable Hemeyer, Dr. Stanley Mercado Primary Care Unava ilable Hemeyer, Dr. Stanley Mercado Primary [facility] Unava ilable Stokes, Dr. Teo Poon Referring Araceli vailable Stokes, Dr. Teo Poon Attending Araceli vailable Stokes, Dr. Teo Poon Attending Araceli vailable Hemeyer, Dr. Stanley Mercado Primary [facility] Unava ilable Hemeyer, Dr. Stanley Mercado Primary Care Unava ilable Stokes, Dr. Teo Poon Attending Araceli vailable Stokes, Dr. Teo Poon Attending Araceli vailable Hemeyer, Dr. Stanley Mercado Primary Care Unava MD Stanley Gomez Primary Care Provider [phone] MD Celia Griffin Attending Provider [phone] MD Teo Stokes Referring Provider [phone] MD Stanley Emerson Primary Care Provider MD Margarito Valentine Attending Provider [phone] JACOBS, Katia R Admitting Unavailable JACOBS, Katia [...] Attending Unavailable JACOBS, Katia R Attending Unavailable Orzech, Blanca X Attending Unavailable JACOBS, Katia R Attending Unavailable JACOBS, Katia R Attending Unavailable JACOBS, Katia R Admitting Unavailable JACOBS, Katia R Attending Unavailable JACOBS, Katia R Referring Unavailable HEMEYER, STANLEY Rich Attending Unavailable HEMEYER, STANLEY Rich Attending Unavailable HEMEYER, STANLEY Rich Attending Unavailable JACOBS, KATIA Hall Referring Unavailable IDANIA, STANLEY Rich Attending Unavailable IDANIA, STANLEY Rich Attending Unavailable MD Stanley Emerson Primary Care Provider MD Teo Stokes Attending Provider [phone] MD Willy Lambert Attending Provider Elvi Blanca X Attending Unavailable Fabi Gomez Attending Unavailable DO Nas Pruett Admit Provider DO Nas Pruett Attending Provider [phone] MD Myesha Feliz Other Provider MD Rogelio Rai Other Provider WATSON Truong Other Provider Edilia Leon DO Mentor L Other Provider MD Ryley Hoyt Other Provider ROCIO Randle Other Provider Unavailable ROCIO Alvarez Other Provider Unavailable ROCIO Delgado Other Provider Unavailable ROCIO Rogel Other Provider Unavailable ROCIO Li Other Provider Unavailable MD Radha Berrios Other Provider DO Khanh Deluca Other Provider MD Ronald Martinez Other Provider [phone] DO Bernabe Cr Other Provider [phone] MD Jerrell Gonsales Other Provider MD Mary Ellen Zambrano Other Provider [phone] MD Anand Mckenzie Other Provider Unavailable WATSON Velasco Other Provider MD Jagjit Swenson Other Provider [phone] MD Pawel Sanford Other Provider MD Taz Barnes Other Provider MD Rupa Tran Other Provider DO Roldan Masterson Other Provider MD Kyle Ivy Other Provider MD Jad Jaffe Other Provider FARHAT Hernandez Other Provider WATSON Sandra Other Provider Unavailable MD Rob Almazan Other Provider MD Danielito Claros Other Provider MD Seb Bonds Other Provider MD Basilio Tam Other Provider Unavailable MD Reji Garcia Other Provider DO Lydia Rene Other Provider DO Lucas Dumas Other Provider [phone] WATSON Watkins Other Provider DO Jakob Lomax Other Provider MD Nick Ken Other Provider [phone] WATSON Beard Other Provider WATSON Man Other Provider MD Joaquim Mayo Other Provider MD Shane Durham Other Provider [phone] DO Tico Whitehead Other Provider [phone] DO Alonso Maher Other Provider MD Humberto Bonds Other Provider MD Chi Smith Other Provider WATSON Najera Other Provider [phone] MD Dana Haddad Other Provider MD Emmanuel Silverman Other Provider ROCIO Moore Other Provider Unavailable Willy Lambert Attending Unavailable Hemeyer, Edward J Primary Care Unavailable Willy Lambert Admitting Unavailable Stokes, Bruce Referring Unavailable Hemeyer, Edward J Primary Care Unavailable Celia Griffin Attending Unavailable Celia Griffin Admitting Unavailable Nas Pruett Attending Unavailable Nas Pruett Admitting Unavailable Hemeyer, Edward J Primary Care Unavailable Kuhar, Meysha Consulting Unavailable Rogelio Rai Consulting Unavailable Heaven Truong Consulting Unavailable Mckay Yeboah Jr Consulting UnavailRyley Parra Consulting Unavaila Ledy Joiner Consulting Unavailable Thu Alvarez Consulting Unavailable Jen Delgado Consulting Unavailable Jennifer Rogel Consulting Unavailable Daisha Li Consulting Unavailable Radha Berrios Consulting Unavailable Khanh Deluca Consulting Unavailable Ronald Martinez Consulting Unavailable Bernabe Cr Consulting UnavailJerrell Bhatti Consulting Unavailable Mary Ellen Zambrano Consulting Unavailable Anand Mckenzie Consulting Unavailable Roseann Velasco Consulting UnavailJagjit Larose Consulting Unavailable Pawel Sanford Consulting Unavailable Taz Barnes Consulting Unavailable Rupa Tran Consulting Unavailable Roldan Masterson Consulting Unavailable Kyle Ivy Consulting Unavailable Jad Jaffe Unavailable Vidya Hernandez Consulting Unavailable Valdo Sandra Consulting Unavailable Rob Almazan Consulting UnavailDanielito Maya Consulting Unavailable Seb Bonds Unavailable Basilio Tam Consulting Unavailable Reji Garcia Consulting Unavailable Lydia Rene Unavailable Lucas Dumas Consulting Unavailable Cortney Watkins Consulting Unavailable Jakob Lomax Consulting Unavailable Nick Ken Consulting Unavailable Yza Beard Consulting Unavailable Venus Man Consulting Unavailable Joaquim Mayo Unavailable Shane Durham Consulting Unavailable Tico Whitehead Consulting Unavailable Alonso Maher Consulting Unavailable Humberto Bonds Consulting Unavailable Chi Smith Consulting Unava Chen Quinn Consulting Unavailable Dana Haddad Consulting Unavailable Emmanuel Silverman Consulting Unavailable Monisha Moore Consulting Unavailable Stanley Emerson Primary Care Unavailable Margarito Valentine Attending UnavailMargarito Lara Admitting UnavailTeo Diez Attending Unavailable Teo Stokes Admitting Unavailable Stanley Emerson Primary Care Unavailable Allergies Allergy Classification Reported Allergen(s) Allergy Type Date of Onset Reaction(s) Facility (2 sources) No Known Medication Allergies; Translations: [No Known Medication Allergies] Propensity to adverse reactions (disorder) [facility] Repository Medications Current Medications Medication Drug [...] take 1 tablet by mouth every hour Keene 325 mg-7.5 mg oral tablet 1 tab(s), Oral, Once, 1 tab(s), Refill(s) 0, Take 1 hour prior to procedure, [facility]/pharmacy #[id number], 187, cm, 03/11/23 13:44:00 EDT, Height/Length Dosing, 93, kg, 03/11/23 13:44:00 EDT, Weight Dosing Start Date: 05/06/23 Status: Ordered [id number] 200 actuat albuterol 0.09 mg/actuat metered dose [...] Albuterol (Eqv-ProAir HFA) 90 mcg/inh inhalation aerosol (19 sources) Start: 06-10-2022 Albuterol (Eqv-ProAir HFA) 90 mcg/inh inhalation aerosol Refill(s) 0 Start Date: 06/10/22 Status: Ordered amiodarone hydrochloride 200 mg oral tablet (1 source) Antiarrhythmic Start: 01-23-2024 take 200 mg by mouth twice daily Amiodarone Active 200 MG PO Twice daily 60 January 23, 2024 12:00am apixaban 2.5 mg oral tablet (1 source) Factor Xa Inhibitor Start: 01-23-2024 take 1 tablet by mouth twice daily Apixaban (Eliquis) 2.5 mg Tablet Active 2.5 MG PO Twice daily 60 30 January 23, 2024 12:00am atorvastatin 80 mg oral tablet (1 source) HMG-CoA Reductase Inhibitor Start: 01-16-2024 take 80 mg by mouth once daily in the evening Atorvastatin Active 80 MG PO Every evening January 16, 2024 12:00am cephalexin 500 mg oral capsule (5 sources) Cephalosporin Antibacterial Start: 10-03-2023 take 1 mg by mouth every twelve hours Keflex 500 mg Cap mg cap(s), Oral, q12hr, Refills(s) 0 Start Date: 10/03/23 Status: Ordered ferrous sulfate 159 mg extended release oral tablet (8 sources) Start: 10-22-2023 take 142 mg by mouth once daily Ferrous Sulfate Active 142 MG PO Daily October 22, 2023 12:00am take 1 tablet by charlene th every twenty-four hours Ferrous Sulfate 325 (65 Fe) MG 1 tablet Orally once a day Active inulin 2000 mg chewable tablet (2 sources) Start: 12-31-2023 take 1 tablet by mouth once daily Inulin (Fiber Gummies) 2 gram tablet,chewable Active 2 GM PO Daily December 31, 2023 12:00am Metoprolol (20 sources) beta-Adrenergic Maldonado Start: 06-10-2022 Metoprolol tartrate 50 mg Tab Refills(s) 0 Start Date: 06/10/22 Status: Ordered Start: 05-16-2022 End: 01-16-2024 take 50 mg by mouth twice daily Metoprolol Tartrate Discontinued 50 MG PO Twice daily May 16, 2022 1:00am January 16, 2024 2:11pm Multivitamin preparation (20 sources) Start: 10-22-2023 take 1 tablet by mouth once daily Multivitamin Active 1 TAB PO Daily October 22, 2023 12:00am Start: 07-31-2022 multivitamin D aily, Refill(s) 0 Start Date: 07/31/22 Status: Ordered Multivitamin Act raji nitroglycerin 0.4 mg sublingual tablet (1 source) Nitrate Vasodilator Start: 01-16-2024 Nitroglycerin Active 0.4 MG SUBLINGUAL Q5M January 16, 2024 12:00am until response; do not exceed 3 doses per event 24 hr oxybutynin chloride 10 mg extended release oral tablet (1 source) Cholinergic Muscarinic Antagonist Start: 06-11-2023 take 1 tablet by mouth once daily oxybutynin 10 mg ER Tab 10 mg = 1 tab(s), Oral, Daily, # 14 tab(s), Refills(s) 0, Pharmacy: [facility]/pharmacy #[id number], 187, cm, 06/10/23 13:43:00 EST, Height/Length Dosing, 93, kg, 03/11/23 13:44:00 EDT, Weight Dosing Start Date: 06/11/23 Status: Ordered predniSONE 10 mg oral tablet (3 sources) predniSONE 10 MG as directed Orally take 4 tablets daily x3 days, take 3 tablets for 3 days, 2 tablets for 3 days, 1 tablet for 3 days Active ticagrelor 90 mg oral tablet (1 source) Start: 01-16-2024 take 1 tablet by mouth twice daily Ticagrelor (Brilinta) 90 mg Tablet Active 90 MG PO Twice daily 180 90 January 16, 2024 12:00am Completed/Discontinued Medications Medication Drug Class(es) Dates Sig (Normalized) Sig (Original) amLODIPine 5 mg oral tablet (20 sources) Dihydropyridine Calcium Channel Maldonado Start: 12-31-2023 End: 01-23-2024 take 5 mg by mouth once daily Amlodipine Discontinued 5 MG PO Daily December 31, 2023 12:00am January 23, 2024 2:59pm Start: 06-10-2023 End: 12-31-2023 take 5 mg by mouth twice daily Amlodipine Discontinued 5 MG PO Twice daily October 22, 2023 12:00am November 14, 2023 9:36am Start: 04-15-2023 take 1 tablet by charlene th every twelve hours Norvasc 5 MG 1 tablet Orally bid for 90 days Mar, Active Start: 04-15-2023 take 1 tablet by charlene th every twenty-four hours Norvasc 5 MG 1 tablet Orally Once a day for 90 days Mar, Active aspirin 81 mg delayed release oral tablet (19 sources) Platelet Aggregation Inhibitor, Nonsteroidal Anti-inflammatory Drug Start: 10-22-2023 End: 01-23-2024 Aspirin (Adult Low Dose Aspirin) 81 mg tablet,delayed release (DR/EC) Discontinued 81 MG PO Daily October 22, 2023 12:00am January 23, 2024 2:59pm Start: 01-22-2023 take 1 tablet by charlene [...] procedure, # 6 tab(s), Refills(s) 0, Pharmacy: [facility]/pharmacy #[id number], 187, cm, 09/18/22 14:39:00 EDT, Height/Length Dosing, 93, kg, 09/18/22 14:39:00 EDT, Weight Dosing Start Date: 12/03/22 Status: Ordered Start: 07-25-2022 take 1 tablet by charlene th once daily Cipro 250 mg Tab 250 mg = 1 tab(s), Oral, Daily, Take 1 tablet the day before the procedure and 1 tablet after the procedure, # 2 tab(s), Refills(s) 0, Pharmacy: [facility]/pharmacy #[id number], 187, cm, 06/11/22 9:11:00 [...] 0 Refills: 0 Ordered: 22-Jan-2023 DO Active simvastatin 20 mg oral tablet (20 sources) HMG-CoA Reductase Inhibitor Start: 05-16-20 End: 01-16-20 24 take 20 mg by mouth at bedtime Simvastatin Discontinued 20 MG PO Bedtime May 16, 2022 1:00am January 16, 2024 2:11pm spironolactone 25 mg oral tablet (9 sources) Aldosterone Antagonist Start: 10-03-19 End: 01-23-20 take 25 mg by mouth once daily Spironolactone Discontinued 25 MG PO Daily October 22, 2023 12:00am January 23, 2024 2:59pm vitamin b12 1 mg oral capsule (20 sources) Vitamin B12 Start: 05-22-20 End: 10-22-19 take 1000 ug by mouth once daily [...] DO Active water 1000 mg/ml irrigation solution (5 sources) Start: 10-03-2023 sterile water irrigation solution See Instructions, 500 mL, Refill(s) 1, Irrigate villarreal catheter as needed with 60 cc sterile water, [facility]/pharmacy #[id number], 187, cm, 10/03/23 14:11:00 EDT, Height/Length Dosing, 93, kg, 10/03/23 14:11:00 EDT, Weight Dosing Start Date: 10/03/23 Status: Ordered Problems Active Problems Problem Classification Problem Date Documented Da te Episodic/Chronic Acute myocardial infarction (3 sources) Acute myocardial infarction of anterior wall; Translations: [ST elevation (STEMI) myocardial infarction involving other coronary artery of anterior wall] Onset: 01-16-2024 01-16-2024 Chronic Administrative/social admission (3 sources) Other reduced mobility; Translations: [Impaired mobility and activities of daily living] Onset: 01-16-2024 01-23-2024 Episodic Aortic; peripheral; and visceral artery aneurysms (20 sources) Abdominal aortic aneurysm; Translations: [Abdominal aneurysm without mention of rupture] Onset: 05-16-2022 Chronic Calculus of urinary tract (20 sources) Urinary bladder stone; Translations: [Calculus in bladder] Onset: 06-11-2022 Episodic Cancer of bladder (20 sources) Malignant tumor of urinary bladder; Translations: [Malignant neoplasm of bladder, unspecified] Onset: 09-18-2022 Chronic Cancer of bladder (4 sources) History of malignant neoplasm of bladder; Translations: [Personal history of malignant neoplasm of bladder] Onset: 12-10-2022 Episodic Cancer; other and unspecified primary (15 sources) H/O: malignant neoplasm 12-10-2022 Episodic Cardiac dysrhythmias (3 sources) Atrial fibrillation; Translations: [Unspecified atrial fibrillation] Onset: 01-16-2024 01-18-2024 Chronic Chronic kidney disease (19 sources) Chronic kidney disease stage 3B ; Translations: [Chronic kidney disease, stage 3b] Onset: 09-04-2022 09-18-2023 Chronic Chronic kidney disease (4 sources) Chronic kidney disease; Translations: [CHRONIC KIDNEY DISEASE STAGE 3B] Onset: 09-10-2022 Chronic obstructive pulmonary disease and bronchiectasis (18 sources) Pulmonary emphysema; Translations: [Simple chronic bronchitis] Onset: 09-23-2022 09-11-2022 Chronic Complication of device; implant or graft (1 source) Other mechanical complication of indwelling urethral catheter, initial encounter; Translations: [[facility] C[facility] INDWELL URE[facility] CATH INT] Onset: 09-16-2022 Episodic Congestive heart failure; nonhypertensive (3 sources) Chronic systolic heart failure; Translations: [Chronic systolic (congestive) heart failure] Onset: 01-16-2024 01-19-2024 Chronic Coronary atherosclerosis and other heart disease (3 sources) Ischemic myocardial dysfunction; Translations: [Ischemic cardiomyopathy] Onset: 01-16-2024 01-19-2024 Chronic Coronary atherosclerosis and other heart disease (3 sources) Stented coronary artery; Translations: [Presence of coronary angioplasty implant and graft] Onset: 01-16-2024 01-19-2024 Episodic Deficiency and other anemia (4 sources) Anemia; Translations: [Anemia, unspecified] 10-22-2023 Episodic Deficiency and other anemia (3 sources) Anemia, unspecified; Translations: [Anemia, unspecified] 10-22-2023 Episodic [...] unspecified] Onset: 06-10-2022 Episodic Hyperplasia of prostate (20 sources) Benign prostatic hypertrophy with outflow obstruction; Translations: [Benign prostatic hyperplasia with lower urinary tract symptoms] Onset: 12-10-2022 Chronic Hypertension with complications and secondary hypertension (10 sources) Hypertensive chronic kidney disease with stage [...] [Deficiency of other specified B group vitamins] Onset: 01-16-2024 05-22-2022 Episodic Other aftercare (1 source) 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; Translations: [OTH SENIOR CARE CURRENT DRUG THERAPY] Onset: 09-23-2022 Episodic Other aftercare (1 source) intermediate (current) use of anticoagulants; Translations: [AURIST CURRNT USE ANTICOAGULANTS] Onset: 09-08-2022 Episodic Other and ill-defined cerebrovascular disease (19 sources) Cerebral ischemia Onset: 05-16-2022 06-10-2022 Chronic Other circulatory disease (2 sources) Personal history of other diseases of the circulatory system; Translations: [Personal history of other diseases of the circulatory system] Onset: 01-16-2024 Episodic Other circulatory disease (1 source) Personal history of transient ischemic attack (TIA), and cerebral infarction without residual deficits; Translations: [PERS HX TIA AND CI NO RESID DEFICIT] Onset: 09-08-2022 Episodic Other circulatory disease (1 source) Low blood pressure; Translations: [Hypotension, unspecified] 01-19-2024 Episodic Other circulatory disease (2 sources) Hypotension, unspecified; Translations: [Hypotension, unspecified] Onset: 01-16-2024 01-23-2024 Episodic Other diseases of bladder and urethra [...] Chronic Other diseases of bladder and urethra (18 sources) Lesion of bladder 07-31-2022 Chronic Other [...] Episodic Other diseases of kidney and ureters (19 sources) Hydronephrosis 06-10-2022 Episodic Other diseases of kidney and ureters (19 sources) Kidney lesion 06-11-2022 Episodic Other diseases of kidney and ureters (16 sources) Bilateral hydronephrosis ; Translations: [Unspecified hydronephrosis] 05-22-2022 Episodic Other diseases of kidney and ureters (1 source) Urinary tract obstruction; Translations: [Other obstructive and reflux uropathy] Onset: 06-10-2023 Episodic Other diseases of kidney and ureters (4 sources) Obstructive nephropathy; Translations: [Other obstructive and reflux uropathy] 10-04-2023 Episodic Other diseases of kidney and ureters (3 sources) Other obstructive and reflux uropathy; Translations: [Other specified disorders of kidney and ureter] 10-22-2023 Episodic Other diseases of veins and lymphatics (1 source) Venous insufficiency (chronic) (peripheral); Translations: [VENOUS INSUFF CHRONIC PERIPHERAL] Onset: 09-23-2022 Episodic Other gastrointestinal disorders (11 sources) Diarrhea; Translations: [Diarrhea, unspecified] 05-16-2022 Episodic Other gastrointestinal disorders (1 source) Colonic lesion; Translations: [Disease of intestine, unspecified] 01-14-2024 Episodic Other injuries and conditions due to external causes (6 sources) Foreign body in bladder; Translations: [Foreign body in bladder, initial encounter] Onset: 10-03-2023 Episodic Other nervous system disorders (11 sources) 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; Translations: [Circadian rhythm sleep disorder, unspecified type] 05-20-2022 Chronic Other nervous system disorders (11 sources) Metabolic encephalopathy; Translations: [Metabolic encephalopathy] 05-16-2022 Chronic Other nervous system disorders (4 sources) Metabolic encephalopathy; Translations: [Metabolic encephalopathy] 05-22-2022 Chronic Other nervous system disorders (6 sources) Circadian rhythm sleep disorder, unspecified type; Translations: [Disruption of 24 hour sleep wake cycle, unspecified] Onset: 01-16-2024 05-22-2022 Chronic Other nervous system disorders (1 source) Abnormal circadian rhythm; Translations: [Circadian rhythm sleep disorder, unspecified type] 01-23-2024 Chronic Other nervous system disorders (1 source) [...] ADULT] Onset: 09-23-2022 Episodic Residual codes; unclassified (16 sources) Tobacco user; Translations: [Tobacco use] 05-22-2022 Episodic Residual codes; unclassified (4 sources) Tobacco use; Translations: [Tobacco use disorder] 05-22-2022 Episodic Residual codes; unclassified (5 sources) Other specified postprocedural states; Translations: [Other postprocedural status] Onset: 09-16-2022 Episodic Residual codes; unclassified (4 sources) History of cardiovascular surgery; Translations: [Other specified postprocedural states] 09-18-2023 Episodic Residual codes; unclassified (1 source) Delirium; Translations: [Disorientation, unspecified] 01-23-2024 Episodic Residual codes; unclassified (2 sources) Disorientation, unspecified; Translations: [Other alteration of consciousness] Onset: 01-16-2024 01-23-2024 Episodic Residual codes; unclassified (1 source) Other specified health status; Translations: [Other specified health status] Onset: 01-16-2024 Episodic Screening and history of mental health and substance abuse codes (3 sources) Ex-smoker; Translations: [Personal history of tobacco use] Onset: 09-23-2022 Episodic Comment on above: 05/17/23 quit; Substance-related disorders (2 sources) Nicotine dependence, cigarettes, uncomplicated; Translations: [Smoker] Onset: 09-08-2022 Chronic Comment on above: 1/2 dozen cigarettes ; Transient cerebral ischemia (18 sources) Transient cerebral ischemia; Translations: [Unspecified transient cerebral ischemia] 05-16-2022 Chronic Unclassified (1 source) ABDOMINAL AA W/O RUPTURE UNSPCIFIED; Translations: [ABDOMINAL AA W/O RUPTURE UNSPCIFIED] Onset: 09-23-2022 Unclassified (1 source) CONTACT W/AND (SUSP) EXPOS COVID-19; Translations: [CONTACT W/AND (SUSP) EXPOS COVID-19] Onset: 05-22-2022 Unclassified (1 source) Abdominal aortic aneurysm, without rupture, unspecified; Translations: [Abdominal aortic aneurysm, without rupture, unspecified] Onset: 04-08-2023 Urinary tract infections (16 sources) Urinary tract infectious disease; Translations: [Urinary [...] 05-23-2022 Episodic Other aftercare (1 source) intermediate (current) use of aspirin; Translations: [AURIST 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] Onset: 05-22-2022 Episodic [...] Test Name Value Interpretation Reference Range Facility Bacteria [Presence] in Urine by AutomatedOrdered By: Rob Almazan on 01-23-2024 Bacteria Auto Ql (U) Rare [HPF] None Seen [facility] Bilirubin Test strip Ql (U)O rdered By: Rob Almazan on 01-23-2024 Bilirubin Ql (U) Negative Negative [facility] Color of Urine by AutoOrdere d By: Rob Almazan on 01-23-2024 Color (U) Yellow Normal Yellow [facility] Comment on above: Order Comment: Name Collection Type:: Villarreal Catheter Performed By: #### A DDONUAPLUS, CUU #### [place] [address] [place] [employer]stick [employer] Micro[employer] 0 01-23-2024 Bacteria,Urine Rare Normal None Seen [facility] Comment on above: Order Comment: Name Collection Type:: Villarreal Catheter Performed By: #### A DDONUAPLUS, CUU #### [place] [address] [place] Bilirubin,Urine Negative Normal Negative [facility] Comment on above: Order Comment: Name Collection Type:: Villarreal Catheter Performed By: #### A DDONUAPLUS, CUU #### [place] [id number] [place] Glucose Ql (U) Normal Normal Normal [facility] Comment on above: Order Comment: Name Collection Type:: Villarreal Catheter Performed By: #### A DDONUAPLUS, CUU #### [facility] [address] [id number] [place] Hyaline Casts,Urine None Normal 0-8 [facility] Comment on above: Order Comment: Name Collection Type:: Villarreal Catheter Performed By: #### A DDONUAPLUS, CUU #### [place] [id number] [place] Mucus,Urine Rare Normal [facility] Comment on above: Order Comment: Name Collection Type:: Villarreal Catheter Result Comment: PERF ORMED BY: [place] [address] PATHOLOGIST ANALYTICAL DATA SCIENTIST OREN OWEN M.D. Performed By: #### A DDONUAPLUS, CUU #### [place] [address] [place] Nitrite,Urine Negative Normal Negative [facility] Comment on above: Order Comment: Name Collection Type:: Villarreal Catheter Performed By: #### A DDONUAPLUS, CUU #### [address] Occult Blood,Urine 2+ High Negative [facility] Comment on above: Order Comment: Name Collection Type:: Villarreal Catheter Result Comment: PERF ORMED BY: [place] [address] PATHOLOGIST ANALYTICAL DATA SCIENTIST OREN OWEN M.D. Performed By: #### A DDONUAPLUS, CUU #### [address] Protein,Urine Trace High Negative [facility] Comment on above: Order Comment: Name Collection Type:: Villarreal Catheter Performed By: #### A DDONUAPLUS, CUU #### [place] [address] [place] RBC,Urine 20-49 High 0-4 [facility] Comment on above: Order Comment: Name Collection Type:: Villarreal Catheter Performed By: #### A DDONUAPLUS, CUU #### [place] [address] [place] Specificy [place],Urine 1.022 Normal 1.00 1-1.03 0 [facility] Comment on above: Order Comment: Name Collection Type:: Villarreal Catheter Performed By: #### A DDONUAPLUS, CUU #### [address] Urobilinogen,Urine 2 mg/dL High Normal [facility] Comment on above: Order Comment: Name Collection Type:: Villarreal Catheter Performed By: #### A DDONUAPLUS, CUU #### [facility] [address] WBC CLUMP, Urine Rare High None Seen [facility] Comment on above: Order Comment: Name Collection Type:: Villarreal Catheter Performed By: #### A DDONUAPLUS, CUU #### [facility] [address] [id number] [place] WBC,Urine 20-49 High 0-4 [facility] Comment on above: Order Comment: Name Collection Type:: Villarreal Catheter Performed By: #### A DDONUAPLUS, CUU #### [facility] [address] ECG 12 lead ECGon 01-23-2024 ECG 12 lead ECG [facility] [address] [place] [address] Electrocardiograph Report Signed Patient: Alex Anderson MR#: [id number] 38 : 1945 Acct:[id number] Age/Sex: 78 / M ADM Date: 01/16/24 Loc: Room: [address] [place] [address] Type: ADM IN Attending Dr: Nas Pruett DO Ordering Provider: Rob Almazan MD Date of Service: 01/23/24 ECG/ECG 12 lead ECG: Monitor QTc Copies to: Test Reason : Blood Pressure : */* mmHG Vent. Rate : 67 BPM Atrial Rate : * BPM P-R Int : * ms QRS Dur : 112 ms QT Int : 408 ms P-R-T Axes : * -1 19 degrees QTcB Int : 431 ms Atrial fibrillation Acute Anteroseptal infarct Lateral injury pattern ACUTE ID / STEMI Abnormal ECG When compared with ECG of 19-Jan-2024 07:09, Serial changes of Anteroseptal infarct present Confirmed by Misael Campbell ([id number]) on 01/23/2024 11:36:17 AM Referred By: Electronically Signed By: Misael Campbell Transcribed By: MUS Signed By Misael Campbell MD 01/23/24 1136 Normal [facility] Epithelial cells.squamous [# /area] in Urine sediment by Automated countOrdered By: Rob Almazan on 01-23-2024 Epithelial cells.squamous Auto (Urine sed) [#/Area] N/A [facility] Erythrocytes [#/area] in Uri ne sediment by Automated countOrdered By: Rob Almazan on 01-23-2024 RBC Auto (Urine sed) [#/Area] 20-49 [HPF] High 0-4 [facility] Glucose [Mass/volume] in Uri ne by Test stripOrdered By: Rob Almazan on 01-23-2024 Glucose Test strip (U) [Mass/Vol] Normal mg/dL Normal [facility] Hemoglobin Test strip Ql (U) Ordered By: Rob Almazan on 01-23-2024 Hemoglobin Ql (U) 2+ High Negative [facility] Hyaline casts [#/area] in Ur ine sediment by Automated countOrdered By: Rob Almazan on 01-23-2024 Hyaline casts Auto (Urine sed) [#/Area] None [LPF] 0-8 [facility] Ketones [Presence] in Urine by Test stripOrdered By: Rob Almazan on 01-23-2024 Ketones Ql (U) Negative Normal Negative [facility] Comment on above: Order Comment: Name Collection Type:: Villarreal Catheter Performed By: #### A DDONUAPLUS, CUU #### [facility] [address] [place] [address] [place] Leukocyte clumps [Presence] in Urine by AutomatedOrdered By: Rob Almazan on 01-23-2024 Leukocyte clumps Auto Ql (U) Rare [LPF] High None Seen [facility] Leukocyte esterase [Presence ] in Urine by Test stripOrdered By: Rob Almazan on 01-23-2024 Leukocyte esterase Test strip Ql (U) 4+ High Negative [facility] Comment on above: Order Comment: Name Collection Type:: Villarreal Catheter Performed By: #### A DDONUAPLUS, CUU #### [facility] [address] [id number] [place] Leukocytes [#/area] in Urine sediment by Automated countOrdered By: Rob Muirrosettatej on 01-23-2024 WBC Auto (Urine sed) [#/Area] 20-49 [HPF] High 0-4 [facility] Mucus [Presence] in Urine by AutomatedOrdered By: Rob Muirkpor on 01-23-2024 Mucus Auto Ql (U) Rare [LPF] [facility] Nitrite Test strip Ql (U)Ord ered By: Robdiann Villaltatej on 01-23-2024 Nitrite Ql (U) Negative Negative [facility] Protein Test strip (U) [Mass /Vol]Ordered By: Rob Doamekpoh on 01-23-2024 Protein (U) [Mass/Vol] Trace mg/dL High Negative [facility] Specific gravity Test strip (U) [Rel density]Ordered By: Rob armidakptej on 01-23-2024 Specific gravity (U) [Rel density] 1.022 1.001-1.03 0 [facility] Urine Cultureon 01-23-2024 Bacteria identified Cx Nom (U) ORGANISM: Enterococcus faecalis (O:ENTFAC) [place] Count 30,000 Aerobic RITESH Charge (PCMIC38) SUSCEPTIBILITY ORGANISM: O:ENTFAC ANTIBIOTIC INTERPRETATION RITESH Ampicillin S <2 Ciprofloxacin S <1 Daptomycin S 2 Levofloxacin S <1 Linezolid S 2 Nitrofurantoin S <32 Penicillin S 1 Tetracycline S <4 Vancomycin S 1 S = SUSCEPTIBLE I = INTERMEDIATE R [...] RESISTANT TO ALL B-LACTAM DRUGS. PERFORMED BY: [address] [place] [address] PATHOLOGIST ANALYTICAL DATA SCIENTIST OREN OWEN M.D. Normal [facility] Comment on above: Performed By: #### B 12, MG, PHOS, URIC, [id number], MANDI, CMP, FOL, FE and TIBC #### [facility] [address] [place] [address] Urine appearanceOrdered By: Rob Almazan on 01-23-2024 Appearance (U) Clear Normal Clear [facility] Comment on above: Order Comment: Name Collection Type:: Villarreal Catheter Performed By: #### A DORAONJOHN, CUU #### [address] Urobilinogen Test strip (U) [Mass/Vol]Ordered By: Rob Almazan on 01-23-2024 Urobilinogen (U) [Mass/Vol] 2 mg/dL High Normal [facility] pH of Urine by Test stripOrd ered By: Rob Almazan on 01-23-2024 pH (U) 5.5 [pH] Normal 5.0-9.0 [facility] Comment on above: Order Comment: Name Collection Type:: Villarreal Catheter Performed By: #### A ИРИНА, CUU #### [address] Automated basophil %Ordered By: Nas Pruett on 01-21-2024 Basophils/100 WBC (Bld) 0.5 % Normal . [facility] Comment on above: Performed By: #### B 12, MG, PHOS, URIC, [id number], MANDI, CMP, FOL, FE and TIBC #### [facility] [address] [place] [address] Automated basophil countOrde red By: Nas Pruett on 01-21-2024 Basophils (Bld) [#/Vol] 0.0 10*3/uL Normal 0.0-0.2 [facility] Comment on above: Result Comment: PERF ORMED BY: [place] [address] PATHOLOGIST ANALYTICAL DATA SCIENTIST OREN OWEN M.D. Performed By: #### B 12, MG, PHOS, URIC, [id number], MANDI, CMP, FOL, FE and TIBC #### [address] Automated blood monocyte cou ntOrdered By: Nas Pruett on 01-21-2024 Monocytes (Bld) [#/Vol] 1.4 10*3/uL High 0.0-0.8 [facility] Comment on above: Performed By: #### B 12, MG, PHOS, URIC, [id number], MANDI, CMP, FOL, FE and TIBC #### [address] Automated eosinophil %Ordere d By: Nas Pruett on 01-21-2024 Eosinophils/100 WBC (Bld) 3.6 % Normal . [facility] Comment on above: Performed By: #### B 12, MG, PHOS, URIC, [id number], MANDI, CMP, FOL, FE and TIBC #### [address] Automated eosinophil countOr dered By: Nas Pruett on 01-21-2024 Eosinophils (Bld) [#/Vol] 0.3 10*3/uL Normal 0.0-0.45 [facility] Comment on above: Performed By: #### B 12, MG, PHOS, URIC, [id number], MANDI, CMP, FOL, FE and TIBC #### [address] Automated monocyte %Ordered By: Nas Pruett on 01-21-2024 Monocytes/100 WBC (Bld) 16.0 % Normal . [facility] Comment on above: Performed By: #### B 12, MG, PHOS, URIC, [id number], MANDI, CMP, FOL, FE and TIBC #### [address] Automated neutrophil %Ordere d By: Nas Pruett on 01-21-2024 Neutrophils/100 WBC (Bld) 64.3 % Normal . [facility] Comment on above: Performed By: #### B 12, MG, PHOS, URIC, [id number], MANDI, CMP, FOL, FE and TIBC #### [facility] [address] [place] [address] Basic Metabolic Panelon 12-25 Creatinine Clr Calc Pharmacy 46.56 Normal [facility] Comment on above: Result Comment: PERF ORMED BY: [place] [address] PATHOLOGIST ANALYTICAL DATA SCIENTIST OREN OWEN M.D. Performed By: #### B 12, MG, PHOS, URIC, [id number], MANDI, CMP, FOL, FE and TIBC #### [address] GFR/1.73 sq M.predicted MDRD (S/P/Bld) [Vol rate/Area] 43.613 mL/min/{1.73_m2} Normal [facility] Comment on above: Performed By: #### B 12, MG, PHOS, URIC, [id number], MANDI, CMP, FOL, FE and TIBC #### [address] Calcium [Mass/volume] in Ser um or PlasmaOrdered By: Nas Pruett on 01-21-2024 Calcium [Mass/Vol] 8.5 mg/dL Low 8.6-10.3 [facility] Comment on above: Performed By: #### B 12, MG, PHOS, URIC, [id number], MANDI, CMP, FOL, FE and TIBC #### [address] Carbon dioxide, total [Moles /volume] in Serum or PlasmaOrdered By: Nas Pruett on 01-21-2024 CO2 [Moles/Vol] 20.1 mmol/L Low 21.0-31.0 [facility] Comment on above: Performed By: #### B 12, MG, PHOS, URIC, [id number], MANDI, CMP, FOL, FE and TIBC #### [place] [address] [place] Chloride [Moles/volume] in S marium or PlasmaOrdered By: Nas Pruett on 01-21-2024 Chloride [Moles/Vol] 107 mmol/L Normal 98-107 [facility] Comment on above: Performed By: #### B 12, MG, PHOS, URIC, [id number], MANDI, CMP, FOL, FE and TIBC #### [address] Complete Blood Count Auto Di ffon 01-21-2024 Mean Corpuscular HGB Conc 32.9 g/dL Normal 32.5-35.6 [facility] Comment on above: Performed By: #### B 12, MG, PHOS, URIC, [id number], MANDI, CMP, FOL, FE and TIBC #### [address] NRBC% 0.1 /100{WBC} Normal 0-0.5 [facility] Comment on above: Performed By: #### B 12, MG, PHOS, URIC, [id number], MANDI, CMP, FOL, FE and TIBC #### [address] Creatinine [Mass/volume] in Serum or PlasmaOrdered By: Nas Pruett on 01-21-2024 Creatinine [Mass/Vol] 1.59 mg/dL High 0.70-1.30 [facility] Comment on above: Performed By: #### B 12, MG, PHOS, URIC, [id number], MANDI, CMP, FOL, FE and TIBC #### [address] Erythrocyte distribution wid th [Ratio] by Automated countOrdered By: Nas Pruett on 01-21-2024 Erythrocyte distribution width (RBC) [Ratio] 15.6 % High 12.0-14.8 [facility] Comment on above: Performed By: #### B 12, MG, PHOS, URIC, [id number], MANDI, CMP, FOL, FE and TIBC #### [address] Erythrocytes [#/volume] in B lood by Automated countOrdered By: Nas Pruett on 01-21-2024 RBC (Bld) [#/Vol] 4.33 10*6/uL Normal 3.90-5.60 [facility] Comment on above: Performed By: #### B 12, MG, PHOS, URIC, [id number], MANDI, CMP, FOL, FE and TIBC #### [facility] [address] Glucose [Mass/volume] in Ser um or PlasmaOrdered By: Nas Pruett on 01-21-2024 Glucose [Mass/Vol] 121 mg/dL High 70-100 [facility] Comment on above: ADA recommended refe rence rangeRandom Glucose Reference Range is dependent on time and content of last meal. Glucose of more than 200 mg/dL in a nonstressed, ambulatory subject supports the diagnosis of Diabetes Mellitus. Result Comment: [place] om Glucose Reference Range is dependent on time and content of last meal. Glucose of more than 200 mg/dL in a nonstressed, ambulatory subject supports the diagnosis of Diabetes Mellitus. ADA recommended reference range Performed By: #### B 12, MG, PHOS, URIC, [id number], MANDI, CMP, FOL, FE and TIBC #### [facility] [address] Hematocrit [Volume Fraction] of Blood by Automated countOrdered By: Nas Pruett on 01-21-2024 Hematocrit (Bld) [Volume fraction] 37.1 % Low 38.8-50.0 [facility] Comment on above: Performed By: #### B 12, MG, PHOS, URIC, [id number], MANDI, CMP, FOL, FE and TIBC #### [facility] [address] Hemoglobin [Mass/volume] in BloodOrdered By: Nsa Pruett on 01-21-2024 Hemoglobin (Bld) [Mass/Vol] 12.2 g/dL Low 13.0-17.0 [facility] Comment on above: Performed By: #### B 12, MG, PHOS, URIC, [id number], MANDI, CMP, FOL, FE and TIBC #### [facility] [address] [place] [address] Leukocytes [#/volume] correc phil for nucleated erythrocytes in Blood by Automated counOrdered By: Nas Pruett on 01-21-2024 WBC corrected for nucl RBC Auto (Bld) [#/Vol] 8.8 10*3/uL 4.1-10.5 [facility] Leukocytes [#/volume] in Blo od by Automated countOrdered By: Nas Pruett on 01-21-2024 WBC (Bld) [#/Vol] 8.8 10*3/uL Normal 4.1-10.5 [facility] Comment on above: Performed By: #### B 12, MG, PHOS, URIC, [id number], MANDI, CMP, FOL, FE and TIBC #### [address] Lymphocytes [#/volume] in Bl ood by Automated countOrdered By: Nas Pruett on 01-21-2024 Lymphocytes (Bld) [#/Vol] 1.4 10*3/uL Normal 1.00-4.8 [facility] Comment on above: Performed By: #### B 12, MG, PHOS, URIC, [id number], MANDI, CMP, FOL, FE and TIBC #### [address] Lymphocytes/100 leukocytes i n Blood by Automated countOrdered By: Nas Pruett on 01-21-2024 Lymphocytes/100 WBC (Bld) 15.6 % Normal . [facility] Comment on above: Performed By: #### B 12, MG, PHOS, URIC, [id number], MANDI, CMP, FOL, FE and TIBC #### [address] MCH [Entitic mass] by Automa phil countOrdered By: Nas Pruett on 01-21-2024 MCH (RBC) [Entitic mass] 28.1 pg Normal 27.5-35.2 [facility] Comment on above: Performed By: #### B 12, MG, PHOS, URIC, [id number], MANDI, CMP, FOL, FE and TIBC #### [address] [place] [address] [place] MCHC Auto (RBC) [Mass/Vol]Or dered By: Nas Pruett on 01-21-2024 MCHC (RBC) [Mass/Vol] 32.9 g/dL 32.5-35.6 [facility] MCV [Entitic volume] by Auto mated countOrdered By: Nas Pruett on 01-21-2024 MCV (RBC) [Entitic vol] 85.6 fL Normal 83.5-101 F [facility] Comment on above: Performed By: #### B 12, MG, PHOS, URIC, [id number], MANDI, CMP, FOL, FE and TIBC #### [facility] [address] Neutrophils [#/volume] in Bl ood by Automated countOrdered By: Nas Pruett on 01-21-2024 Neutrophils (Bld) [#/Vol] 5.7 10*3/uL Normal 1.8-7.7 [facility] Comment on above: Performed By: #### B 12, MG, PHOS, URIC, [id number], MANDI, CMP, FOL, FE and TIBC #### [facility] [address] No Panel InformationOrdered By: Nas Pruett on 01-21-2024 Estimated GFR (CKD-EPI) 43.613 mL/Min [facility] Creatinine Clearance (Chem 46.56 [facility] Nucleated erythrocytes [Pres ence] in Blood by Automated countOrdered By: Nas Pruett on 01-21-2024 Nucleated RBC Auto Ql (Bld) 0.1 /100{WBC} 0-0.5 [facility] Platelet mean volume [Entiti c volume] in Blood by Automated countOrdered By: Nas Pruett on 01-21-2024 Platelet mean volume (Bld) [Entitic vol] 8.4 fL Normal 6.6-10.1 [facility] Comment on above: Performed By: #### B 12, MG, PHOS, URIC, [id number], MANDI, CMP, FOL, FE and TIBC #### [facility] [address] Platelets [#/volume] in Bloo d by Automated countOrdered By: Nas Pruett on 01-21-2024 Platelets (Bld) [#/Vol] 221 10*3/uL Normal 150-450 [facility] Comment on above: Performed By: #### B 12, MG, PHOS, URIC, [id number], MANDI, CMP, FOL, FE and TIBC #### [facility] [address] [place] [address] [place] Potassium [Moles/volume] in Serum or PlasmaOrdered By: Nas Pruett on 01-21-2024 Potassium [Moles/Vol] 3.9 mmol/L Normal 3.5-5.1 [facility] Comment on above: Performed By: #### B 12, MG, PHOS, URIC, [id number], MANDI, CMP, FOL, FE and TIBC #### [facility] [address] Serum or plasma anion gap de terminationOrdered By: Nas Pruett on 01-21-2024 Anion gap [Moles/Vol] 13.8 mmol/L Normal 6.0-15.0 [facility] Comment on above: Performed By: #### B 12, MG, PHOS, URIC, [id number], MANDI, CMP, FOL, FE and TIBC #### [facility] [address] Sodium [Moles/volume] in Ser um or PlasmaOrdered By: Nas Pruett on 01-21-2024 Sodium [Moles/Vol] 137 mmol/L Normal 136-145 [facility] Comment on above: Performed By: #### B 12, MG, PHOS, URIC, [id number], MANDI, CMP, FOL, FE and TIBC #### [facility] [address] Urea nitrogen [Mass/volume] in Serum or PlasmaOrdered By: Nas Pruett on 01-21-2024 Urea nitrogen [Mass/Vol] 35 mg/dL High 7-25 [facility] Comment on above: Performed By: #### B 12, MG, PHOS, URIC, [id number], MANDI, CMP, FOL, FE and TIBC #### [address] Basic Metabolic Panelon 08-2 Anion gap [Moles/Vol] 12.0 mmol/L Normal 6.0-15.0 [facility] Comment on above: Performed By: #### B 12, MG, PHOS, URIC, [id number], MANDI, CMP, FOL, FE and TIBC #### [address] Calcium [Mass/Vol] 8.4 mg/dL Low 8.6-10.3 [facility] Comment on above: Performed By: #### B 12, MG, PHOS, URIC, [id number], MANDI, CMP, FOL, FE and TIBC #### [address] Chloride [Moles/Vol] 107 mmol/L Normal 98-107 [facility] Comment on above: Performed By: #### B 12, MG, PHOS, URIC, [id number], MANDI, CMP, FOL, FE and TIBC #### [address] CO2 [Moles/Vol] 19.5 mmol/L Low 21.0-31.0 [facility] Comment on above: Performed By: #### B 12, MG, PHOS, URIC, [id number], MANDI, CMP, FOL, FE and TIBC #### [address] Creatinine [Mass/Vol] 1.50 mg/dL High 0.70-1.30 [facility] Comment on above: Performed By: #### B 12, MG, PHOS, URIC, [id number], MANDI, CMP, FOL, FE and TIBC #### [address] Creatinine Clr Calc Pharmacy 49.40 Normal [facility] Comment on above: Result Comment: PERF ORMED BY: [place] [address] PATHOLOGIST ANALYTICAL DATA SCIENTIST OREN OWEN M.D. Performed By: #### B 12, MG, PHOS, URIC, [id number], MANDI, CMP, FOL, FE and TIBC #### [address] GFR/1.73 sq M.predicted MDRD (S/P/Bld) [Vol rate/Area] 46.772 mL/min/{1.73_m2} Normal [facility] Comment on above: Performed By: #### B 12, MG, PHOS, URIC, [id number], MANDI, CMP, FOL, FE and TIBC #### [address] Glucose [Mass/Vol] 136 mg/dL High 70-100 [facility] Comment on above: Result Comment: [facility] Glucose Reference Range is dependent on time and content of last meal. Glucose of more than 200 mg/dL in a nonstressed, ambulatory subject supports the diagnosis of Diabetes Mellitus. ADA recommended reference range Performed By: #### B 12, MG, PHOS, URIC, [id number], MANDI, CMP, FOL, FE and TIBC #### [address] Potassium [Moles/Vol] 3.5 mmol/L Normal 3.5-5.1 [facility] Comment on above: Performed By: #### B 12, MG, PHOS, URIC, [id number], MANDI, CMP, FOL, FE and TIBC #### [address] Sodium [Moles/Vol] 135 mmol/L Low 136-145 [facility] Comment on above: Performed By: #### B 12, MG, PHOS, URIC, [id number], MANDI, CMP, FOL, FE and TIBC #### [address] Urea nitrogen [Mass/Vol] 32 mg/dL High 7-25 [facility] Comment on above: Performed By: #### B 12, MG, PHOS, URIC, [id number], MANDI, CMP, FOL, FE and TIBC #### [address] Complete Blood Count Auto Di ffon 01-20-2024 Basophils (Bld) [#/Vol] 0.0 10*3/uL Normal 0.0-0.2 [facility] Comment on above: Result Comment: PERF ORMED BY: [place] [address] PATHOLOGIST ANALYTICAL DATA SCIENTIST OREN OWEN M.D. Performed By: #### B 12, MG, PHOS, URIC, [id number], MANDI, CMP, FOL, FE and TIBC #### [address] Basophils/100 WBC (Bld) 0.3 % Normal . [facility] Comment on above: Performed By: #### B 12, MG, PHOS, URIC, [id number], MANDI, CMP, FOL, FE and TIBC #### [address] Eosinophils (Bld) [#/Vol] 0.2 10*3/uL Normal 0.0-0.45 [facility] Comment on above: Performed By: #### B 12, MG, PHOS, URIC, [id number], MANDI, CMP, FOL, FE and TIBC #### [address] Eosinophils/100 WBC (Bld) 1.7 % Normal . [facility] Comment on above: Performed By: #### B 12, MG, PHOS, URIC, [id number], MANDI, CMP, FOL, FE and TIBC #### [address] Erythrocyte distribution width (RBC) [Ratio] 15.4 % High 12.0-14.8 [facility] Comment on above: Performed By: #### B 12, MG, PHOS, URIC, [id number], MANDI, CMP, FOL, FE and TIBC #### [address] Hematocrit (Bld) [Volume fraction] 37.6 % Low 38.8-50.0 [facility] Comment on above: Performed By: #### B 12, MG, PHOS, URIC, [id number], MANDI, CMP, FOL, FE and TIBC #### [address] Hemoglobin (Bld) [Mass/Vol] 12.5 g/dL Low 13.0-17.0 [facility] Comment on above: Performed By: #### B 12, MG, PHOS, URIC, [id number], MANDI, CMP, FOL, FE and TIBC #### [address] Lymphocytes (Bld) [#/Vol] 1.1 10*3/uL Normal 1.00-4.8 [facility] Comment on above: Performed By: #### B 12, MG, PHOS, URIC, [id number], MANDI, CMP, FOL, FE and TIBC #### [address] Lymphocytes/100 WBC (Bld) 11.8 % Normal . [facility] Comment on above: Performed By: #### B 12, MG, PHOS, URIC, [id number], MANDI, CMP, FOL, FE and TIBC #### [address] MCH (RBC) [Entitic mass] 28.5 pg Normal 27.5-35.2 [facility] Comment on above: Performed By: #### B 12, MG, PHOS, URIC, [id number], MANDI, CMP, FOL, FE and TIBC #### [address] MCV (RBC) [Entitic vol] 85.9 fL Normal 83.5-101 T he [facility] Comment on above: Performed By: #### B 12, MG, PHOS, URIC, [id number], MANDI, CMP, FOL, FE and TIBC #### [address] Mean Corpuscular HGB Conc 33.2 g/dL Normal 32.5-35.6 [facility] Comment on above: Performed By: #### B 12, MG, PHOS, URIC, [id number], MANDI, CMP, FOL, FE and TIBC #### [address] Monocytes (Bld) [#/Vol] 1.4 10*3/uL High 0.0-0.8 [facility] Comment on above: Performed By: #### B 12, MG, PHOS, URIC, [id number], MANDI, CMP, FOL, FE and TIBC #### [address] Monocytes/100 WBC (Bld) 14.3 % Normal . T jonatan [facility] Comment on above: Performed By: #### B 12, MG, PHOS, URIC, [id number], MANDI, CMP, FOL, FE and TIBC #### [address] Neutrophils (Bld) [#/Vol] 6.8 10*3/uL Normal 1.8-7.7 [facility] Comment on above: Performed By: #### B 12, MG, PHOS, URIC, [id number], MANDI, CMP, FOL, FE and TIBC #### [address] Neutrophils/100 WBC (Bld) 71.9 % Normal . [facility] Comment on above: Performed By: #### B 12, MG, PHOS, URIC, [id number], MANDI, CMP, FOL, FE and TIBC #### [address] NRBC% 0.0 /100{WBC} Normal 0-0.5 [facility] Comment on above: Performed By: #### B 12, MG, PHOS, URIC, [id number], MANDI, CMP, FOL, FE and TIBC #### [address] Platelet mean volume (Bld) [Entitic vol] 8.3 fL Normal 6.6-10.1 [facility] Comment on above: Performed By: #### B 12, MG, PHOS, URIC, [id number], MANDI, CMP, FOL, FE and TIBC #### [facility] [address] Platelets (Bld) [#/Vol] 202 10*3/uL Normal 150-450 [facility] Comment on above: Performed By: #### B 12, MG, PHOS, URIC, [id number], MANDI, CMP, FOL, FE and TIBC #### [facility] [address] RBC (Bld) [#/Vol] 4.38 10*6/uL Normal 3.90-5.60 [facility] Comment on above: Performed By: #### B 12, MG, PHOS, URIC, [id number], MANDI, CMP, FOL, FE and TIBC #### [address] WBC (Bld) [#/Vol] 9.5 10*3/uL Normal 4.1-10.5 [facility] Comment on above: Performed By: #### B 12, MG, PHOS, URIC, [id number], MANDI, CMP, FOL, FE and TIBC #### [address] Magnesium [Mass/volume] in S marium or PlasmaOrdered By: Isaac Edwards on 01-20-2024 Magnesium [Mass/Vol] 2.1 mg/dL Normal 1.9-2.7 [facility] Comment on above: Result Comment: PERF ORMED BY: [place] [address] PATHOLOGIST ANALYTICAL DATA SCIENTIST OREN OWEN M.D. Performed By: #### B 12, MG, PHOS, URIC, [id number], MANDI, CMP, FOL, FE and TIBC #### [address] Basic Metabolic Panelon 08-2 Anion gap [Moles/Vol] 11.7 mmol/L Normal 6.0-15.0 Th e [facility] Comment on above: Performed By: #### B 12, MG, PHOS, URIC, [id number], MANDI, CMP, FOL, FE and TIBC #### [address] Calcium [Mass/Vol] 8.5 mg/dL Low 8.6-10.3 [facility] Comment on above: Performed By: #### B 12, MG, PHOS, URIC, [id number], MANDI, CMP, FOL, FE and TIBC #### [address] Chloride [Moles/Vol] 106 mmol/L Normal 98-107 [facility] Comment on above: Performed By: #### B 12, MG, PHOS, URIC, [id number], MANDI, CMP, FOL, FE and TIBC #### [address] CO2 [Moles/Vol] 19.9 mmol/L Low 21.0-31.0 [facility] Comment on above: Performed By: #### B 12, MG, PHOS, URIC, [id number], MANDI, CMP, FOL, FE and TIBC #### [address] Creatinine [Mass/Vol] 1.62 mg/dL High 0.70-1.30 [facility] Comment on above: Performed By: #### B 12, MG, PHOS, URIC, [id number], MANDI, CMP, FOL, FE and TIBC #### [address] Creatinine Clr Calc Pharmacy 42.28 Normal [facility] Comment on above: Result Comment: PERF ORMED BY: [place] [address] PATHOLOGIST ANALYTICAL DATA SCIENTIST OREN OWEN M.D. Performed By: #### B 12, MG, PHOS, URIC, [id number], MANDI, CMP, FOL, FE and TIBC #### [address] GFR/1.73 sq M.predicted MDRD (S/P/Bld) [Vol rate/Area] 42.646 mL/min/{1.73_m2} Normal [facility] Comment on above: Performed By: #### B 12, MG, PHOS, URIC, [id number], MANDI, CMP, FOL, FE and TIBC #### [address] Glucose [Mass/Vol] 145 mg/dL High 70-100 [facility] Comment on above: Result Comment: [facility] Glucose Reference Range is dependent on time and content of last meal. Glucose of more than 200 mg/dL in a nonstressed, ambulatory subject supports the diagnosis of Diabetes Mellitus. ADA recommended reference range Performed By: #### B 12, MG, PHOS, URIC, [id number], MANDI, CMP, FOL, FE and TIBC #### [address] Potassium [Moles/Vol] 3.6 mmol/L Normal 3.5-5.1 [facility] Comment on above: Performed By: #### B 12, MG, PHOS, URIC, [id number], MANDI, CMP, FOL, FE and TIBC #### [address] Sodium [Moles/Vol] 134 mmol/L Low 136-145 [facility] Comment on above: Performed By: #### B 12, MG, PHOS, URIC, [id number], MANDI, CMP, FOL, FE and TIBC #### [address] Urea nitrogen [Mass/Vol] 32 mg/dL High 7-25 [facility] Comment on above: Performed By: #### B 12, MG, PHOS, URIC, [id number], MANDI, CMP, FOL, FE and TIBC #### [address] Complete Blood Count Auto Di ffon 01-19-2024 Basophils (Bld) [#/Vol] 0.0 10*3/uL Normal 0.0-0.2 [facility] Comment on above: Result Comment: PERF ORMED BY: [place] [address] PATHOLOGIST ANALYTICAL DATA SCIENTIST OREN OWEN M.D. Performed By: #### B 12, MG, PHOS, URIC, [id number], MANDI, CMP, FOL, FE and TIBC #### [address] Basophils/100 WBC (Bld) 0.4 % Normal . T jonatan [facility] Comment on above: Performed By: #### B 12, MG, PHOS, URIC, [id number], MANDI, CMP, FOL, FE and TIBC #### [address] Eosinophils (Bld) [#/Vol] 0.0 10*3/uL Normal 0.0-0.45 [facility] Comment on above: Performed By: #### B 12, MG, PHOS, URIC, [id number], MANDI, CMP, FOL, FE and TIBC #### [address] Eosinophils/100 WBC (Bld) 0.4 % Normal . [facility] Comment on above: Performed By: #### B 12, MG, PHOS, URIC, [id number], MANDI, CMP, FOL, FE and TIBC #### [address] Erythrocyte distribution width (RBC) [Ratio] 15.6 % High 12.0-14.8 [facility] Comment on above: Performed By: #### B 12, MG, PHOS, URIC, [id number], MANDI, CMP, FOL, FE and TIBC #### [address] Hematocrit (Bld) [Volume fraction] 37.1 % Low 38.8-50.0 [facility] Comment on above: Performed By: #### B 12, MG, PHOS, URIC, [id number], MANDI, CMP, FOL, FE and TIBC #### [address] Hemoglobin (Bld) [Mass/Vol] 12.3 g/dL Low 13.0-17.0 [facility] Comment on above: Performed By: #### B 12, MG, PHOS, URIC, [id number], MANDI, CMP, FOL, FE and TIBC #### [address] Lymphocytes (Bld) [#/Vol] 1.0 10*3/uL Normal 1.00-4.8 [facility] Comment on above: Performed By: #### B 12, MG, PHOS, URIC, [id number], MANDI, CMP, FOL, FE and TIBC #### [address] Lymphocytes/100 WBC (Bld) 8.8 % Normal . [facility] Comment on above: Performed By: #### B 12, MG, PHOS, URIC, [id number], MANDI, CMP, FOL, FE and TIBC #### [address] MCH (RBC) [Entitic mass] 28.6 pg Normal 27.5-35.2 [facility] Comment on above: Performed By: #### B 12, MG, PHOS, URIC, [id number], MANDI, CMP, FOL, FE and TIBC #### [address] MCV (RBC) [Entitic vol] 86.5 fL Normal 83.5-101 T he [facility] Comment on above: Performed By: #### B 12, MG, PHOS, URIC, [id number], MANDI, CMP, FOL, FE and TIBC #### [address] Mean Corpuscular HGB Conc 33.0 g/dL Normal 32.5-35.6 [facility] Comment on above: Performed By: #### B 12, MG, PHOS, URIC, [id number], MANDI, CMP, FOL, FE and TIBC #### [address] Monocytes (Bld) [#/Vol] 1.3 10*3/uL High 0.0-0.8 [facility] Comment on above: Performed By: #### B 12, MG, PHOS, URIC, [id number], MANDI, CMP, FOL, FE and TIBC #### [address] Monocytes/100 WBC (Bld) 11.9 % Normal . T jonatan [facility] Comment on above: Performed By: #### B 12, MG, PHOS, URIC, [id number], MANDI, CMP, FOL, FE and TIBC #### [address] Neutrophils (Bld) [#/Vol] 8.6 10*3/uL High 1.8-7.7 [facility] Comment on above: Performed By: #### B 12, MG, PHOS, URIC, [id number], MANDI, CMP, FOL, FE and TIBC #### [address] Neutrophils/100 WBC (Bld) 78.5 % Normal . [facility] Comment on above: Performed By: #### B 12, MG, PHOS, URIC, [id number], MANDI, CMP, FOL, FE and TIBC #### [address] NRBC% 0.1 /100{WBC} Normal 0-0.5 [facility] Comment on above: Performed By: #### B 12, MG, PHOS, URIC, [id number], MANDI, CMP, FOL, FE and TIBC #### [address] Platelet mean volume (Bld) [Entitic vol] 8.9 fL Normal 6.6-10.1 [facility] Comment on above: Performed By: #### B 12, MG, PHOS, URIC, [id number], MANDI, CMP, FOL, FE and TIBC #### [facility] [address] Platelets (Bld) [#/Vol] 165 10*3/uL Normal 150-450 [facility] Comment on above: Performed By: #### B 12, MG, PHOS, URIC, [id number], MANDI, CMP, FOL, FE and TIBC #### [facility] [address] RBC (Bld) [#/Vol] 4.30 10*6/uL Normal 3.90-5.60 [facility] Comment on above: Performed By: #### B 12, MG, PHOS, URIC, [id number], MANDI, CMP, FOL, FE and TIBC #### [facility] [address] WBC (Bld) [#/Vol] 11.0 10*3/uL High 4.1-10.5 [facility] Comment on above: Performed By: #### B 12, MG, PHOS, URIC, [id number], MANDI, CMP, FOL, FE and TIBC #### [address] ECG 12 lead ECGon 01-19-2024 ECG 12 lead ECG [facility] [place] [address] Electrocardiograph Report Signed Patient: Alex Anderson MR#: [id number] [birth year] : 1945 Acct:[id number] Age/Sex: 78 / M ADM Date: 01/16/24 Loc: Room: [address] [place] [address] Type: ADM IN Attending Dr: Nas Pruett DO Ordering Provider: Nas Pruett DO Date of Service: 01/19/24 ECG/ECG 12 lead ECG: ANT STEMI Copies to: Test Reason : Blood Pressure : 90/59 mmHG Vent. Rate : 69 BPM Atrial Rate : 81 BPM P-R Int : * ms QRS Dur : 118 ms QT Int : 382 ms P-R-T Axes : * -9 69 degrees QTcB Int : 409 ms Atrial fibrillation Anteroseptal infarct (cited on or before 16-Jan-2024) Inferolateral injury pattern ACUTE ID / STEMI Abnormal ECG When compared with ECG of 18-Jan-2024 07:08, No significant change was found Confirmed by Misael Campbell ([id number]) on 01/20/2024 10:18:21 PM Referred By: Electronically Signed By: Misael Campbell Transcribed By: MUS Signed By Misael Campbell MD 01/20/24 7838 Normal [facility] Basic Metabolic Panelon 12-25 Anion gap [Moles/Vol] 11.5 mmol/L Normal 6.0-15.0 Th e [facility] Comment on above: Performed By: #### B 12, MG, PHOS, URIC, [id number], MANDI, CMP, FOL, FE and TIBC #### [facility] [address] [place] [address] Calcium [Mass/Vol] 8.7 mg/dL Normal 8.6-10.3 [facility] Comment on above: Performed By: #### B 12, MG, PHOS, URIC, [id number], MANDI, CMP, FOL, FE and TIBC #### [facility] [address] [place] [address] Chloride [Moles/Vol] 107 mmol/L Normal 98-107 [facility] Comment on above: Performed By: #### B 12, MG, PHOS, URIC, [id number], MANDI, CMP, FOL, FE and TIBC #### [facility] [address] [place] [address] CO2 [Moles/Vol] 21.2 mmol/L Normal 21.0-31.0 [facility] Comment on above: Performed By: #### B 12, MG, PHOS, URIC, [id number], MANDI, CMP, FOL, FE and TIBC #### [facility] [address] [place] [address] Creatinine [Mass/Vol] 1.59 mg/dL High 0.70-1.30 [facility] Comment on above: Performed By: #### B 12, MG, PHOS, URIC, [id number], MANDI, CMP, FOL, FE and TIBC #### [address] Creatinine Clr Calc Pharmacy 46.65 Normal [facility] Comment on above: Result Comment: PERF ORMED BY: [place] [address] PATHOLOGIST ANALYTICAL DATA SCIENTIST OREN OWEN M.D. Performed By: #### B 12, MG, PHOS, URIC, [id number], MANDI, CMP, FOL, FE and TIBC #### [address] GFR/1.73 sq M.predicted MDRD (S/P/Bld) [Vol rate/Area] 43.613 mL/min/{1.73_m2} Normal [facility] Comment on above: Performed By: #### B 12, MG, PHOS, URIC, [id number], MANDI, CMP, FOL, FE and TIBC #### [address] Glucose [Mass/Vol] 125 mg/dL High 70-100 [facility] Comment on above: Result Comment: [facility] Glucose Reference Range is dependent on time and content of last meal. Glucose of more than 200 mg/dL in a nonstressed, ambulatory subject supports the diagnosis of Diabetes Mellitus. ADA recommended reference range Performed By: #### B 12, MG, PHOS, URIC, [id number], MANDI, CMP, FOL, FE and TIBC #### [address] Potassium [Moles/Vol] 3.7 mmol/L Normal 3.5-5.1 [facility] Comment on above: Performed By: #### B 12, MG, PHOS, URIC, [id number], MANDI, CMP, FOL, FE and TIBC #### [address] Sodium [Moles/Vol] 136 mmol/L Normal 136-145 [facility] Comment on above: Performed By: #### B 12, MG, PHOS, URIC, [id number], MANDI, CMP, FOL, FE and TIBC #### [address] Urea nitrogen [Mass/Vol] 29 mg/dL High 7-25 [facility] Comment on above: Performed By: #### B 12, MG, PHOS, URIC, [id number], MANDI, CMP, FOL, FE and TIBC #### [address] Complete Blood Count Auto Di ffon 01-18-2024 Basophils (Bld) [#/Vol] 0.0 10*3/uL Normal 0.0-0.2 [facility] Comment on above: Result Comment: PERF ORMED BY: [place] [address] PATHOLOGIST ANALYTICAL DATA SCIENTIST OREN OWEN M.D. Performed By: #### B 12, MG, PHOS, URIC, [id number], MANDI, CMP, FOL, FE and TIBC #### [address] Basophils/100 WBC (Bld) 0.4 % Normal . Kirsten cheung [facility] Comment on above: Performed By: #### B 12, MG, PHOS, URIC, [id number], MANDI, CMP, FOL, FE and TIBC #### [address] Eosinophils (Bld) [#/Vol] 0.0 10*3/uL Normal 0.0-0.45 [facility] Comment on above: Performed By: #### B 12, MG, PHOS, URIC, [id number], MANDI, CMP, FOL, FE and TIBC #### [address] Eosinophils/100 WBC (Bld) 0.2 % Normal . [facility] Comment on above: Performed By: #### B 12, MG, PHOS, URIC, [id number], MANDI, CMP, FOL, FE and TIBC #### [address] Erythrocyte distribution width (RBC) [Ratio] 15.9 % High 12.0-14.8 [facility] Comment on above: Performed By: #### B 12, MG, PHOS, URIC, [id number], MANDI, CMP, FOL, FE and TIBC #### [address] Hematocrit (Bld) [Volume fraction] 38.2 % Low 38.8-50.0 [facility] Comment on above: Performed By: #### B 12, MG, PHOS, URIC, [id number], MANDI, CMP, FOL, FE and TIBC #### [address] Hemoglobin (Bld) [Mass/Vol] 12.7 g/dL Low 13.0-17.0 [facility] Comment on above: Performed By: #### B 12, MG, PHOS, URIC, [id number], MANDI, CMP, FOL, FE and TIBC #### [address] Lymphocytes (Bld) [#/Vol] 1.4 10*3/uL Normal 1.00-4.8 [facility] Comment on above: Performed By: #### B 12, MG, PHOS, URIC, [id number], MANDI, CMP, FOL, FE and TIBC #### [address] Lymphocytes/100 WBC (Bld) 11.5 % Normal . [facility] Comment on above: Performed By: #### B 12, MG, PHOS, URIC, [id number], MANDI, CMP, FOL, FE and TIBC #### [address] MCH (RBC) [Entitic mass] 28.5 pg Normal 27.5-35.2 [facility] Comment on above: Performed By: #### B 12, MG, PHOS, URIC, [id number], MANDI, CMP, FOL, FE and TIBC #### [address] MCV (RBC) [Entitic vol] 85.4 fL Normal 83.5-101 [facility] Comment on above: Performed By: #### B 12, MG, PHOS, URIC, [id number], MANDI, CMP, FOL, FE and TIBC #### [address] Mean Corpuscular HGB Conc 33.4 g/dL Normal 32.5-35.6 [facility] Comment on above: Performed By: #### B 12, MG, PHOS, URIC, [id number], MANDI, CMP, FOL, FE and TIBC #### [address] Monocytes (Bld) [#/Vol] 1.5 10*3/uL High 0.0-0.8 [facility] Comment on above: Performed By: #### B 12, MG, PHOS, URIC, [id number], MANDI, CMP, FOL, FE and TIBC #### [address] Monocytes/100 WBC (Bld) 12.8 % Normal . [facility] Comment on above: Performed By: #### B 12, MG, PHOS, URIC, [id number], MANDI, CMP, FOL, FE and TIBC #### [address] Neutrophils (Bld) [#/Vol] 9.1 10*3/uL High 1.8-7.7 [facility] Comment on above: Performed By: #### B 12, MG, PHOS, URIC, [id number], MANDI, CMP, FOL, FE and TIBC #### [address] Neutrophils/100 WBC (Bld) 75.1 % Normal . [facility] Comment on above: Performed By: #### B 12, MG, PHOS, URIC, [id number], MANDI, CMP, FOL, FE and TIBC #### [address] NRBC% 0.0 /100{WBC} Normal 0-0.5 [facility] Comment on above: Performed By: #### B 12, MG, PHOS, URIC, [id number], MANDI, CMP, FOL, FE and TIBC #### [address] Platelet mean volume (Bld) [Entitic vol] 9.3 fL Normal 6.6-10.1 [facility] Comment on above: Performed By: #### B 12, MG, PHOS, URIC, [id number], MANDI, CMP, FOL, FE and TIBC #### [address] Platelets (Bld) [#/Vol] 131 10*3/uL Low 150-450 [facility] Comment on above: Performed By: #### B 12, MG, PHOS, URIC, [id number], MANDI, CMP, FOL, FE and TIBC #### [address] RBC (Bld) [#/Vol] 4.47 10*6/uL Normal 3.90-5.60 [facility] Comment on above: Performed By: #### B 12, MG, PHOS, URIC, [id number], MANDI, CMP, FOL, FE and TIBC #### [address] WBC (Bld) [#/Vol] 12.1 10*3/uL High 4.1-10.5 [facility] Comment on above: Performed By: #### B 12, MG, PHOS, URIC, [id number], MANDI, CMP, FOL, FE and TIBC #### [address] ECG 12 lead ECGon 01-18-2024 ECG 12 lead ECG [facility] [place] [address] Electrocardiograph Report Signed Patient: Alex Anderson MR#: [id number] 36 : 1945 Acct:[id number] Age/Sex: 78 / M ADM Date: 01/16/24 Loc: Room: [address] [place] [address] Type: ADM IN Attending Dr: Nas Pruett DO Ordering Provider: Nas Pruett DO Date of Service: 01/18/24 ECG/ECG 12 lead ECG: ANT STEMI Copies to: Test Reason : Blood Pressure : 93/59 mmHG Vent. Rate : 83 BPM Atrial Rate : 288 BPM P-R Int : * ms QRS Dur : 116 ms QT Int : 370 ms P-R-T Axes : * 7 92 degrees QTcB Int : 434 ms Atrial fibrillation Incomplete right bundle branch block Anteroseptal infarct (cited on or before 16-Jan-2024) Abnormal ECG When compared with ECG of 17-Jan-2024 07:06, Atrial fibrillation has replaced Sinus rhythm Confirmed by ANA CASTRO MD ([id number]) on 01/18/2024 11:02:49 AM Referred By: Electronically Signed By: ANA CASTRO MD Transcribed By: MUS Signed By Ana Castro MD 0 01/18/24 1102 Normal [facility] Basic Metabolic Panelon 08-2 Anion gap [Moles/Vol] 12.3 mmol/L Normal 6.0-15.0 Th e [facility] Comment on above: Performed By: #### B 12, MG, PHOS, URIC, [id number], MANDI, CMP, FOL, FE and TIBC #### [address] Calcium [Mass/Vol] 8.9 mg/dL Normal 8.6-10.3 [facility] Comment on above: Performed By: #### B 12, MG, PHOS, URIC, [id number], MANDI, CMP, FOL, FE and TIBC #### [facility] [address] Chloride [Moles/Vol] 105 mmol/L Normal 98-107 [facility] Comment on above: Performed By: #### B 12, MG, PHOS, URIC, [id number], MANDI, CMP, FOL, FE and TIBC #### [place] [address] [place] CO2 [Moles/Vol] 22.2 mmol/L Normal 21.0-31.0 [facility] Comment on above: Performed By: #### B 12, MG, PHOS, URIC, [id number], MANDI, CMP, FOL, FE and TIBC #### [facility] [address] Creatinine [Mass/Vol] 1.70 mg/dL High 0.70-1.30 [facility] Comment on above: Performed By: #### B 12, MG, PHOS, URIC, [id number], MANDI, CMP, FOL, FE and TIBC #### [address] Creatinine Clr Calc Pharmacy 44.35 Normal [facility] Comment on above: Performed By: #### B 12, MG, PHOS, URIC, [id number], MANDI, CMP, FOL, FE and TIBC #### [address] GFR/1.73 sq M.predicted MDRD (S/P/Bld) [Vol rate/Area] 40.249 mL/min/{1.73_m2} Normal [facility] Comment on above: Performed By: #### B 12, MG, PHOS, URIC, [id number], MANDI, CMP, FOL, FE and TIBC #### [address] Glucose [Mass/Vol] 115 mg/dL High 70-100 [facility] Comment on above: Result Comment: [place] Glucose Reference Range is dependent on time and content of last meal. Glucose of more than 200 mg/dL in a nonstressed, ambulatory subject supports the diagnosis of Diabetes Mellitus. ADA recommended reference range Performed By: #### B 12, MG, PHOS, URIC, [id number], MANDI, CMP, FOL, FE and TIBC #### [address] Potassium [Moles/Vol] 4.5 mmol/L Normal 3.5-5.1 [facility] Comment on above: Performed By: #### B 12, MG, PHOS, URIC, [id number], MANDI, CMP, FOL, FE and TIBC #### [address] Sodium [Moles/Vol] 135 mmol/L Low 136-145 [facility] Comment on above: Performed By: #### B 12, MG, PHOS, URIC, [id number], MANDI, CMP, FOL, FE and TIBC #### [facility] [address] Urea nitrogen [Mass/Vol] 26 mg/dL High 7-25 [facility] Comment on above: Performed By: #### B 12, MG, PHOS, URIC, [id number], MANDI, CMP, FOL, FE and TIBC #### [address] Capillary blood glucose elan urement by glucometer (mass/volume)Ordered By: Nas Pruett on 01-17-2024 Glucose [Mass/Vol] 126 mg/dL Normal [facility] Comment on above: Random Glucose Refer ence Range is dependent on time and content of last meal. Glucose of more than 200 mg/dL in a nonstressed, ambulatory subject supports the diagnosis of Diabetes Mellitus. Result Comment: [facility] Glucose Reference Range is dependent on time and content of last meal. Glucose of more than 200 mg/dL in a nonstressed, ambulatory subject supports the diagnosis of Diabetes Mellitus. PERFORMED BY: [place] [address] PATHOLOGIST ANALYTICAL DATA SCIENTIST OREN OWEN M.D. Performed By: #### B 12, MG, PHOS, URIC, [id number], MANDI, CMP, FOL, FE and TIBC #### [address] Cholesterol [Mass/volume] in Serum or PlasmaOrdered By: Nas Pruett on 01-17-2024 Cholesterol [Mass/Vol] 74 mg/dL Low 140-200 [facility] Comment on above: Chol less than 200 m g/dl low riskChol 201-239 mg/dl borderline riskChol 240 mg/dl and greater high risk Result Comment: Chol less than 200 mg/dl low risk Chol 201-239 mg/dl borderline risk Chol 240 mg/dl and greater high risk Performed By: #### B 12, MG, PHOS, URIC, [id number], MANDI, CMP, FOL, FE and TIBC #### [facility] [address] Cholesterol in LDL Calc [Mas s/Vol]Ordered By: Nas Pruett on 01-17-2024 Cholesterol in LDL [Mass/Vol] 28 mg/dL 0-100 [facility] Comment on above: LDL ATP III CLASSIFI CATIONLDL less than 100 mg/dL OptimalLDL 100-129 mg/dL Near or above optimalLDL 130-159 mg/dL Borderline highLDL 160-189 mg/dL HighLDL greater than 189 mg/dL Very high Cholesterol in VLDL Calc [Ma ss/Vol]Ordered By: Nas Pruett on 01-17-2024 Cholesterol in VLDL [Mass/Vol] 13 mg/dL [facility] Dipstick and Microscopicon 0 01-17-2024 Appearance (U) Cloudy Critically abnormal Clear [facility] Comment on above: Order Comment: Reaso n for Exam Acute kidney injury;Chronic kidney disease, stage 3b;Bilater Performed By: #### B 12, MG, PHOS, URIC, [id number], MANDI, CMP, FOL, FE and TIBC #### [facility] [address] Bacteria,Urine 2+ High None Seen [facility] Comment on above: Order Comment: Reaso n for Exam Acute kidney injury;Chronic kidney disease, stage 3b;Bilater Performed By: #### B 12, MG, PHOS, URIC, [id number], MANDI, CMP, FOL, FE and TIBC #### [facility] [address] Bilirubin,Urine Negative Normal Negative [facility] Comment on above: Order Comment: Reaso n for Exam Acute kidney injury;Chronic kidney disease, stage 3b;Bilater Performed By: #### B 12, MG, PHOS, URIC, [id number], MANDI, CMP, FOL, FE and TIBC #### [facility] [address] Color (U) Light-Yellow Normal Yellow [facility] Comment on above: Order Comment: Reaso n for Exam Acute kidney injury;Chronic kidney disease, stage 3b;Bilater Performed By: #### B 12, MG, PHOS, URIC, [id number], MANDI, CMP, FOL, FE and TIBC #### [facility] [address] Glucose Ql (U) Normal Normal Normal [facility] Comment on above: Order Comment: Reaso n for Exam Acute kidney injury;Chronic kidney disease, stage 3b;Bilater Performed By: #### B 12, MG, PHOS, URIC, [id number], MANDI, CMP, FOL, FE and TIBC #### [facility] [address] Hyaline Casts,Urine None Normal 0-8 [facility] Comment on above: Order Comment: Reaso n for Exam Acute kidney injury;Chronic kidney disease, stage 3b;Bilater Performed By: #### B 12, MG, PHOS, URIC, [id number], MANDI, CMP, FOL, FE and TIBC #### [facility] [address] Ketones Ql (U) Negative Normal Negative [facility] Comment on above: Order Comment: Reaso n for Exam Acute kidney injury;Chronic kidney disease, stage 3b;Bilater Performed By: #### B 12, MG, PHOS, URIC, [id number], MANDI, CMP, FOL, FE and TIBC #### [facility] [address] Leukocyte esterase Test strip Ql (U) 3+ High Negative [facility] Comment on above: Order Comment: Reaso n for Exam Acute kidney injury;Chronic kidney disease, stage 3b;Bilater Performed By: #### B 12, MG, PHOS, URIC, [id number], MANDI, CMP, FOL, FE and TIBC #### [facility] [address] Mucus,Urine Rare Normal [facility] Comment on above: Order Comment: Reaso n for Exam Acute kidney injury;Chronic kidney disease, stage 3b;Bilater Result Comment: PERF ORMED BY: [place] [address] PATHOLOGIST ANALYTICAL DATA SCIENTIST OREN OWEN M.D. Performed By: #### B 12, MG, PHOS, URIC, [id number], MANDI, CMP, FOL, FE and TIBC #### [address] Nitrite,Urine Negative Normal Negative [facility] Comment on above: Order Comment: Reaso n for Exam Acute kidney injury;Chronic kidney disease, stage 3b;Bilater Performed By: #### B 12, MG, PHOS, URIC, [id number], MANDI, CMP, FOL, FE and TIBC #### [address] Occult Blood,Urine Trace High Negative [facility] Comment on above: Order Comment: Reaso n for Exam Acute kidney injury;Chronic kidney disease, stage 3b;Bilater Result Comment: PERF ORMED BY: [place] [address] PATHOLOGIST ANALYTICAL DATA SCIENTIST OREN OWEN M.D. Performed By: #### B 12, MG, PHOS, URIC, [id number], MANDI, CMP, FOL, FE and TIBC #### [address] pH (U) 6.0 [pH] Normal 5.0-9.0 [facility] Comment on above: Order Comment: Reaso n for Exam Acute kidney injury;Chronic kidney disease, stage 3b;Bilater Performed By: #### B 12, MG, PHOS, URIC, [id number], MANDI, CMP, FOL, FE and TIBC #### [address] Protein,Urine Trace High Negative [facility] Comment on above: Order Comment: Reaso n for Exam Acute kidney injury;Chronic kidney disease, stage 3b;Bilater Performed By: #### B 12, MG, PHOS, URIC, [id number], MANDI, CMP, FOL, FE and TIBC #### [address] [place] [address] [place] RBC,Urine 3-4 Normal 0-4 [facility] Comment on above: Order Comment: Reaso n for Exam Acute kidney injury;Chronic kidney disease, stage 3b;Bilater Performed By: #### B 12, MG, PHOS, URIC, [id number], MANDI, CMP, FOL, FE and TIBC #### [address] Specificy [place],Urine 1.018 Normal 1.00 1-1.03 0 [facility] Comment on above: Order Comment: Reaso n for Exam Acute kidney injury;Chronic kidney disease, stage 3b;Bilater Performed By: #### B 12, MG, PHOS, URIC, [id number], MANDI, CMP, FOL, FE and TIBC #### [address] Squamous Epithelial Cell,Urine 1-2 Normal 0-2 [facility] Comment on above: Order Comment: Reaso n for Exam Acute kidney injury;Chronic kidney disease, stage 3b;Bilater Performed By: #### B 12, MG, PHOS, URIC, [id number], MANDI, CMP, FOL, FE and TIBC #### [address] Urobilinogen,Urine Normal Normal Normal [facility] Comment on above: Order Comment: Reaso n for Exam Acute kidney injury;Chronic kidney disease, stage 3b;Bilater Performed By: #### B 12, MG, PHOS, URIC, [id number], MANDI, CMP, FOL, FE and TIBC #### [address] WBC,Urine 10-19 High 0-4 [facility] Comment on above: Order Comment: Reaso n for Exam Acute kidney injury;Chronic kidney disease, stage 3b;Bilater Performed By: #### B 12, MG, PHOS, URIC, [id number], MANDI, CMP, FOL, FE and TIBC #### [address] ECG 12 lead ECGon 01-17-2024 ECG 12 lead ECG [facility] [place] [address] [place] [address] Electrocardiograph Report Signed Patient: Alex Anderson MR#: [id number] [birth year] : 1945 Acct:[id number] Age/Sex: 78 / M ADM Date: 01/16/24 Loc: Room: [address] [place] [address] Type: ADM IN Attending Dr: Nas Pruett DO Ordering Provider: Nas Pruett DO Date of Service: 01/17/24 ECG/ECG 12 lead ECG: Post Angioplasty Procedure in AM Copies to: Test Reason : Blood Pressure : 93/54 mmHG Vent. Rate : 88 BPM Atrial Rate : 88 BPM P-R Int : 142 ms QRS Dur : 116 ms QT Int : 362 ms P-R-T Axes : 49 16 95 degrees QTcB Int : 438 ms Sinus rhythm with premature atrial complexes Incomplete right bundle branch block Septal infarct (cited on or before 16-Jan-2024) Inferior injury pattern ACUTE ID / STEMI Abnormal ECG When compared with ECG of 16-Jan-2024 19:53, (Unconfirmed) Serial changes of evolving Septal infarct present Confirmed by ANA CASTRO MD ([id number]) on 01/17/2024 9:52:42 AM Referred By: Electronically Signed By: ANA CASTRO MD Transcribed By: MUS Signed By Ana Castro MD 0 01/17/24 0952 Normal [facility] ECH echo transthoracicon ECH echo transthoracic [facility] [place] [address] Echocardiogram Signed Patient: Alex Anderson MR#: [id number] 36 : 1945 Acct:[id number] Age/Sex: 78 / M ADM Date: 01/16/24 Loc: Room: [address] [place] [address] Type: ADM IN Attending Dr: Nas Pruett DO Ordering Provider: Nas Pruett DO Date of Service: 01/17/24 ECH/ECH echo transthoracic: Ant STEMI Copies to: MD Nas Hu, DO BSA: 2.2 m2 BP: 85/55 mmHg HR: 89 Reason For Study: Ant STEMI History: COVID-19. COPD. HLD. CKD. TIA. HTN. Smoker. Interpretation Summary The left ventricular size and thickness are normal. There is akinesis of the mid to distal anteroseptal wall apex and distal lateral wall Ejection Fraction = 30-35%. A variety of Doppler measurements indicate impaired left ventricular relaxation, which is associated with grade I/IV or mild diastolic dysfunction. There is trace mitral regurgitation. When compared to previous study LVEF has worsened with new regional motion abnormality. Procedure/Quality: A two-dimensional transthoracic echocardiogram with color flow, Doppler and injection of contrast agent Definity was performed. A two- dimensional transthoracic echocardiogram with color flow and Doppler was performed. The study was technically fair in quality. Left Ventricle: The left ventricular size and thickness are normal. There is akinesis of the mid to distal anteroseptal wall apex and distal lateral wall. Ejection Fraction = 30-35%. A variety of Doppler measurements indicate impaired left ventricular relaxation, which is associated with grade I/IV or mild diastolic dysfunction. Left Atrium: The left atrium appears normal in size. The atrial septum appears normal. Right Atrium: The right atrium appears normal in size. Right Ventricle: The right ventricular size, thickness and function are normal. Aortic Valve: The aortic valve is normal in structure and function. No aortic regurgitation is present. Mitral Valve: The mitral valve is normal in structure and function. There is trace mitral regurgitation. Tricuspid Valve: The tricuspid valve is normal in structure and function. No tricuspid regurgitation. Pulmonic Valve: The pulmonic valve is normal in structure and function. Arteries: The aortic root is normal size. Pericardium/Pleura: No pericardial effusion seen. There is no pleural effusion. IVC/Hepatic Veins: The inferior vena cava is normal in size, with a normal collapsibility index. Measurements with Normals IVSd: 0.76 cm (0.7-1.1 cm)LVIDd: 5.3 cm(3.7-5.4 cm) LVPWd: 0.85 cm (0.7-1.1 cm)LVIDs: 4.2 cm(2.3-3.6 cm) Ao root diam: 3.5 cm (2.0-3.6 cm) asc Aorta Diam: 3.8 cm(2.1-3.4cm) Doppler with Normals LV V1 max: 119.8 cm/sec (0.7-1.7m/s)MV E max diamond: 62.1 cm/sec(0.8-1.3m/s) MV A max diamond: 84.4 cm/sec(0.0-0.0m/s) MV E/A: 0.74 (<1.5) MMode/2D Measurements Calculations TAPSE: 2.2 cm FS: 20.9 % Ao root area: LVOT diam: 2.1 cm EDV(Teich): 9.5 cm2 LVOT area: 3.5 cm2 134.4 ml ESV(Teich): 77.7 ml EF(Teich): 42.2 % __ LVLd ap4: 8.0 cm SV(MOD-sp4): LAV(MOD-sp4): LA A2 area: 16.5 cm2 EDV(MOD-sp4): 59.5 ml 45.7 ml 136.0 ml LAV(MOD-sp2): LA A4 area: 16.5 cm2 LVLs ap4: 7.2 cm 38.7 ml LA length (vol): ESV(MOD-sp4): 4.7 cm 76.5 ml LA vol: 49.1 ml EF(MOD-sp4): 43.8 % LA vol index: 21.8 ml/m2 Doppler Measurements Calculations MV dec time: E/E' lat: 9.7 MV dec slope: Ao V2 max: 0.18 sec E/E' med: 10.4 126.0 cm/sec 353.6 cm/sec2 Ao max P.4 mmHg Ao mean P.3 mmHg Ao V2 mean: 98.6 cm/sec Ao V2 VTI: 24.5 cm XIANG(I,D): 2.7 cm2 XIANG(V,D): 3.3 cm2 __ LV V1 max PG: RAP systole: 5.7 mmHg 8.0 mmHg LV V1 mean P.3 mmHg LV V1 mean: 85.1 cm/sec LV V1 VTI: 19.1 cm Transcribed By: HARLEEN Performed At: 01/17/24 1045 Signed By: Ana Castro MD 01/17/24 1150 Normal [facility] Glucose Poct Glucometerson 0 01-17-2024 Glucose [Mass/Vol] 115 mg/dL Normal [facility] Comment on above: Result Comment: [place] om Glucose Reference Range is dependent on time and content of last meal. Glucose of more than 200 mg/dL in a nonstressed, ambulatory subject supports the diagnosis of Diabetes Mellitus. PERFORMED BY: [place] [address] PATHOLOGIST ANALYTICAL DATA SCIENTIST OREN OWEN M.D. Performed By: #### B 12, MG, PHOS, URIC, [id number], MANDI, CMP, FOL, FE and TIBC #### [facility] [address] [place] [address] Glucose [Mass/Vol] 114 mg/dL Normal [facility] Comment on above: Result Comment: [place] om Glucose Reference Range is dependent on time and content of last meal. Glucose of more than 200 mg/dL in a nonstressed, ambulatory subject supports the diagnosis of Diabetes Mellitus. PERFORMED BY: [place] [address] PATHOLOGIST ANALYTICAL DATA SCIENTIST OREN OWEN M.D. Performed By: #### B 12, MG, PHOS, URIC, [id number], MANDI, CMP, FOL, FE and TIBC #### [facility] [address] [place] [address] [place] Glucose [Mass/Vol] 125 mg/dL Normal [facility] Comment on above: Result Comment: [place] om Glucose Reference Range is dependent on time and content of last meal. Glucose of more than 200 mg/dL in a nonstressed, ambulatory subject supports the diagnosis of Diabetes Mellitus. PERFORMED BY: [place] [address] PATHOLOGIST ANALYTICAL DATA SCIENTIST OREN OWEN M.D. Performed By: #### B 12, MG, PHOS, URIC, [id number], MANDI, CMP, FOL, FE and TIBC #### [address] Lipid Panelon 01-17-2024 LDL Cholesterol,Calculated 28 mg/dL Normal 0-100 [facility] Comment on above: Result Comment: LDL ATP III CLASSIFICATION LDL less than 100 mg/dL Optimal LDL 100-129 mg/dL Near or above optimal LDL 130-159 mg/dL Borderline high LDL 160-189 mg/dL High LDL greater than 189 mg/dL Very high Performed By: #### B 12, MG, PHOS, URIC, [id number], MANDI, CMP, FOL, FE and TIBC #### [address] Triglyceride w/Reflex 67 mg/dL Normal 0-149 [facility] Comment on above: Result Comment: TRIG ATP III CLASSIFICATION TRIG less than 150 mg/dL Normal TRIG 150-199 mg/dL Borderline high TRIG 200-500 mg/dL High TRIG greater than 500 mg/dL Very high Standard traceable to the Center for Disease Conrtrol and Prevention (CDC) test method. Performed By: #### B 12, MG, PHOS, URIC, [id number], MANDI, CMP, FOL, FE and TIBC #### [address] VLDL CHOLESTEROL 13 mg/dL Normal [facility] Comment on above: Performed By: #### B 12, MG, PHOS, URIC, [id number], MANDI, CMP, FOL, FE and TIBC #### [address] Platelet adequacy [Presence] in Blood by Light microscopyOrdered By: Nas Pruett on 01-17-2024 Platelets LM Ql (Bld) Decreased Normal [facility] Platelet morphology finding [Identifier] in BloodOrdered By: Nas Pruett on 01-17-2024 Platelet morphology finding Nom (Bld) Normal Normal [facility] RBC morphologyOrdered By: Nas Pruett on 01-17-2024 RBC morphology finding Nom (Bld) N/A [facility] Scan and CBCon 01-17-2024 Basophils (Bld) [#/Vol] 0.1 10*3/uL Normal 0.0-0.2 [facility] Comment on above: Result Comment: PERF ORMED BY: [place] [address] PATHOLOGIST ANALYTICAL DATA SCIENTIST OREN OWEN M.D. Performed By: #### B 12, MG, PHOS, URIC, [id number], MANDI, CMP, FOL, FE and TIBC #### [address] Basophils/100 WBC (Bld) 0.4 % Normal . T jonatan [facility] Comment on above: Performed By: #### B 12, MG, PHOS, URIC, [id number], MANDI, CMP, FOL, FE and TIBC #### [address] Eosinophils (Bld) [#/Vol] 0.0 10*3/uL Normal 0.0-0.45 [facility] Comment on above: Performed By: #### B 12, MG, PHOS, URIC, [id number], MANDI, CMP, FOL, FE and TIBC #### [address] Eosinophils/100 WBC (Bld) 0.0 % Normal . [facility] Comment on above: Performed By: #### B 12, MG, PHOS, URIC, [id number], MANDI, CMP, FOL, FE and TIBC #### [address] Erythrocyte distribution width (RBC) [Ratio] 15.8 % High 12.0-14.8 [facility] Comment on above: Performed By: #### B 12, MG, PHOS, URIC, [id number], MANDI, CMP, FOL, FE and TIBC #### [address] Hematocrit (Bld) [Volume fraction] 38.4 % Low 38.8-50.0 [facility] Comment on above: Performed By: #### B 12, MG, PHOS, URIC, [id number], MANDI, CMP, FOL, FE and TIBC #### [address] Hemoglobin (Bld) [Mass/Vol] 12.7 g/dL Low 13.0-17.0 [facility] Comment on above: Performed By: #### B 12, MG, PHOS, URIC, [id number], MANDI, CMP, FOL, FE and TIBC #### [address] Lymphocytes (Bld) [#/Vol] 1.2 10*3/uL Normal 1.00-4.8 [facility] Comment on above: Performed By: #### B 12, MG, PHOS, URIC, [id number], MANDI, CMP, FOL, FE and TIBC #### [address] Lymphocytes/100 WBC (Bld) 6.9 % Normal . [facility] Comment on above: Performed By: #### B 12, MG, PHOS, URIC, [id number], MANDI, CMP, FOL, FE and TIBC #### [address] MCH (RBC) [Entitic mass] 28.4 pg Normal 27.5-35.2 [facility] Comment on above: Performed By: #### B 12, MG, PHOS, URIC, [id number], MANDI, CMP, FOL, FE and TIBC #### [address] MCV (RBC) [Entitic vol] 86.1 fL Normal 83.5-101 T [facility] Comment on above: Performed By: #### B 12, MG, PHOS, URIC, [id number], MANDI, CMP, FOL, FE and TIBC #### [address] Mean Corpuscular HGB Conc 33.0 g/dL Normal 32.5-35.6 [facility] Comment on above: Performed By: #### B 12, MG, PHOS, URIC, [id number], MANDI, CMP, FOL, FE and TIBC #### [address] Monocytes (Bld) [#/Vol] 2.8 10*3/uL High 0.0-0.8 [facility] Comment on above: Performed By: #### B 12, MG, PHOS, URIC, [id number], MANDI, CMP, FOL, FE and TIBC #### [address] Monocytes/100 WBC (Bld) 15.6 % Normal . T jonatan [facility] Comment on above: Performed By: #### B 12, MG, PHOS, URIC, [id number], MANDI, CMP, FOL, FE and TIBC #### [address] Neutrophils (Bld) [#/Vol] 13.6 10*3/uL High 1.8-7.7 [facility] Comment on above: Performed By: #### B 12, MG, PHOS, URIC, [id number], MANDI, CMP, FOL, FE and TIBC #### [address] Neutrophils/100 WBC (Bld) 77.1 % Normal . [facility] Comment on above: Performed By: #### B 12, MG, PHOS, URIC, [id number], MANDI, CMP, FOL, FE and TIBC #### [address] NRBC% 0.0 /100{WBC} Normal 0-0.5 [facility] Comment on above: Performed By: #### B 12, MG, PHOS, URIC, [id number], MANDI, CMP, FOL, FE and TIBC #### [address] Platelet Estimate Decreased Normal Normal [facility] Comment on above: Performed By: #### B 12, MG, PHOS, URIC, [id number], MANDI, CMP, FOL, FE and TIBC #### [address] Platelet mean volume (Bld) [Entitic vol] 9.0 fL Normal 6.6-10.1 [facility] Comment on above: Performed By: #### B 12, MG, PHOS, URIC, [id number], MANDI, CMP, FOL, FE and TIBC #### [address] Platelet Morphology Normal Normal Normal [facility] Comment on above: Result Comment: PERF ORMED BY: [place] [address] PATHOLOGIST ANALYTICAL DATA SCIENTIST OREN OWEN M.D. Performed By: #### B 12, MG, PHOS, URIC, [id number], MANDI, CMP, FOL, FE and TIBC #### [address] Platelets (Bld) [#/Vol] 135 10*3/uL Low 150-450 [facility] Comment on above: Performed By: #### B 12, MG, PHOS, URIC, [id number], MANDI, CMP, FOL, FE and TIBC #### [address] RBC (Bld) [#/Vol] 4.46 10*6/uL Normal 3.90-5.60 [facility] Comment on above: Performed By: #### B 12, MG, PHOS, URIC, [id number], MANDI, CMP, FOL, FE and TIBC #### [address] WBC (Bld) [#/Vol] 17.7 10*3/uL High 4.1-10.5 [facility] Comment on above: Performed By: #### B 12, MG, PHOS, URIC, [id number], MANDI, CMP, FOL, FE and TIBC #### [address] Serum or plasma high density lipoprotein (HDL) cholesterol measurementOrdered By: Nas Pruett on 01-17-2024 Cholesterol in HDL [Mass/Vol] 33 mg/dL Normal 23-92 [facility] Comment on above: HDL CHOL ATP-III CLA SSIFICATION Cardiovascular RiskHDL > or equal to 60 mg/dL LOWHDL < 40 mg/dL HIGH Result Comment: HDL CHOL ATP-III CLASSIFICATION Cardiovascular Risk HDL > or equal to 60 mg/dL LOW HDL < 40 mg/dL HIGH Performed By: #### B 12, MG, PHOS, URIC, [id number], MANDI, CMP, FOL, FE and TIBC #### [address] Serum or plasma total choles terol/high density lipoprotein (HDL) cholesterol mass ratOrdered By: Nas Pruett on 01-17-2024 Cholesterol.total/Sonya sterol in HDL [Mass ratio] 2.2 {ratio} Normal <5.0 [facility] Comment on above: Result Comment: PERF ORMED BY: [place] [address] PATHOLOGIST ANALYTICAL DATA SCIENTIST OREN OWEN M.D. Performed By: #### B 12, MG, PHOS, URIC, [id number], MANDI, CMP, FOL, FE and TIBC #### [address] Triglyceride [Mass/volume] i n Serum or PlasmaOrdered By: Nas Pruett on 01-17-2024 Triglyceride [Mass/Vol] 67 mg/dL 0-149 F [facility] Comment on above: TRIG ATP III CLASSIF ICATIONTRIG less than 150 mg/dL NormalTRIG 150-199 mg/dL Borderline highTRIG 200-500 mg/dL High TRIG greater than 500 mg/dL Very highStandard traceable to the Center for Disease Conrtrol and Prevention (CDC) test method. Troponin I High Sensitivityo n 01-17-2024 Troponin I High Sensitivity 08820.6 pg/mL Off scale high 0.0-20.0 [facility] Comment on above: Result Comment: Crit ical Result [id number]_d:[id number] Called to and read back by: WU MCDANIEL at: 01/17/2024 06:17:54 by:[id number] PERFORMED BY: [place] [address] PATHOLOGIST ANALYTICAL DATA SCIENTIST OREN OWEN M.D. Performed By: #### B 12, MG, PHOS, URIC, [id number], AMNDI, CMP, FOL, FE and TIBC #### [address] Troponin I.cardiac [Mass/vol ume] in Serum or Plasma by Detection limit <= 0.01 ng/Ordered By: Nas Pruett on 01-17-2024 Troponin I.cardiac DL <= 0.01 ng/mL [Mass/Vol] 42759.6 pg/mL High 0.0-20.0 [facility] Comment on above: Critical Result I_Tn IHS_d:[id number] Called to and read back by: WU MCDANIEL at: 01/17/2024 06:17:54 by:[id number] Urine Cultureon 01-17-2024 Bacteria identified Cx Nom (U) ORGANISM: Enterococcus faecalis (O:ENTFAC) [place] Count >100,000 Aerobic RITESH Charge (PCMIC38) SUSCEPTIBILITY ORGANISM: O:ENTFAC ANTIBIOTIC INTERPRETATION RITESH Ampicillin S <2 Ciprofloxacin S <1 Daptomycin S 2 Levofloxacin S <1 Linezolid S 2 Nitrofurantoin S <32 Penicillin S 2 Tetracycline S <4 Vancomycin S 2 S = SUSCEPTIBLE I = INTERMEDIATE R [...] RESISTANT TO ALL B-LACTAM DRUGS. PERFORMED BY: [address] [place] [address] PATHOLOGIST ANALYTICAL DATA SCIENTIST OREN OWEN M.D. Normal [facility] Comment on above: Performed By: #### B 12, MG, PHOS, URIC, [id number], MANDI, CMP, FOL, FE and TIBC #### [facility] [address] [place] [address] Urine culture routineOrdered By: Justina Lara on 01-17-2024 Bacteria identified Cx Nom (U) Enterococcus faecalis Abnormal [facility] XR chest 1V portableon 01-16 XR chest 1V portable [facility] [address] XRay Report Signed Patient: Alex Anderson MR#: [id number] 36 : 1945 Acct:[id number] Age/Sex: 78 / M ADM Date: 01/16/24 Loc: Room: [address] [place] [address] Type: ADM IN Attending Dr: Nas Pruett DO Copies to: MD Nas Cam DO Ordering Provider: Justina Lara MD Date of Service: 01/17/24 XR/XR chest 1V portable: COPD XR chest 1V portable 01/16/2024 3:19 PM SIGNS AND SYMPTOMS: COPD PROTOCOL: Frontal radiograph of the chest COMPARISON: None FINDINGS: The trachea is midline. There is cardiomegaly. There is perihilar vascular prominence and interstitial prominence suggesting congestive heart failure/volume overload. Degenerative changes are noted in the shoulders and thoracic spine. The bony thorax is intact. XR/XR chest 1V portable IMPRESSION: Findings suggest mild congestive heart failure/volume overload. No focal consolidation. Impression dictated by: Corky Max M.D.01/17/2024 11:34 AM Dictation Location: [place] [address] Transcribed By: [facility] 01/17/24 1134 Dictated By: Corky Max II, MD 01/17/24 1132 Signed By: 01/17/24 1134 Normal [facility] ECG 12 lead ECGon 01-16-2024 ECG 12 lead ECG [facility] Main [place] [id number] Electrocardiograph Report Signed Patient: Alex Anderson MR#: [id number] 38 : 1945 Acct:[id number] Age/Sex: 78 / M ADM Date: 01/16/24 Loc: Room: [address] [place] [address] Type: ADM IN Attending Dr: Nas Pruett DO Ordering Provider: Nas Pruett DO Date of Service: 01/16/24 ECG/ECG 12 lead ECG: Admission EKG Copies to: Test Reason : Blood Pressure : 91/54 mmHG Vent. Rate : 83 BPM Atrial Rate : 83 BPM P-R Int : 150 ms QRS Dur : 120 ms QT Int : 350 ms P-R-T Axes : 55 16 95 degrees QTcB Int : 411 ms Sinus rhythm with blocked premature atrial complexes with premature supraventricular complexes Septal infarct (cited on or before 16-Jan-2024) Abnormal ECG When compared with ECG of 16-Jan-2024 12:51, (Unconfirmed) premature supraventricular complexes are now present Serial changes of evolving Septal infarct present Confirmed by ANA CASTRO MD ([id number]) on 01/17/2024 9:52:35 AM Referred By: Electronically Signed By: ANA CASTRO MD Transcribed By: MUS Signed By Ana Castro MD 0 01/17/24 0952 Normal [facility] ECG 12 lead ECG [place] [id number] Electrocardiograph Report Signed Patient: Alex Anderson MR#: [id number] [birth year] : 1945 Acct:[id number] Age/Sex: 78 / M ADM Date: 01/16/24 Loc: Room: [address] [place] [address] Type: ADM IN Attending Dr: Nas Pruett DO Ordering Provider: Nas Pruett DO Date of Service: 01/16/24 ECG/ECG 12 lead ECG: Post Angioplasty Procedure Copies to: Test Reason : Blood Pressure : 110/68 mmHG Vent. Rate : 76 BPM Atrial Rate : 76 BPM P-R Int : 148 ms QRS Dur : 116 ms QT Int : 396 ms P-R-T Axes : 68 50 100 degrees QTcB Int : 445 ms Normal sinus rhythm Incomplete right bundle branch block recent antro-septal infarct T wave abnormality, consider anterolateral ischemia Abnormal ECG When compared with ECG of 21-Jun-2022 09:14, Questionable change in QRS duration Septal infarct is now present Confirmed by ANA CASTRO MD ([id number]) on 01/17/2024 12:57:40 AM Referred By: Electronically Signed By: ANA CASTRO MD Transcribed By: MUS Signed By Ana Castro MD 0 01/17/24 0057 Normal [facility] Glucose Poct Glucometerson 0 01-16-2024 Commemt1 Glu2: Cleaned Meter Normal [facility] Comment on above: Result Comment: PERF ORMED BY: [place] [address] PATHOLOGIST ANALYTICAL DATA SCIENTIST OREN OWEN M.D. Performed By: #### B 12, MG, PHOS, URIC, [id number], MANDI, CMP, FOL, FE and TIBC #### [address] Glucose [Mass/Vol] 118 mg/dL Normal [facility] Comment on above: Result Comment: [place] om Glucose Reference Range is dependent on time and content of last meal. Glucose of more than 200 mg/dL in a nonstressed, ambulatory subject supports the diagnosis of Diabetes Mellitus. Performed By: #### B 12, MG, PHOS, URIC, [id number], MANDI, CMP, FOL, FE and TIBC #### [facility] [address] [place] [address] Glucose [Mass/Vol] 119 mg/dL Normal [facility] Comment on above: Result Comment: [place] om Glucose Reference Range is dependent on time and content of last meal. Glucose of more than 200 mg/dL in a nonstressed, ambulatory subject supports the diagnosis of Diabetes Mellitus. PERFORMED BY: [place] [id number] PATHOLOGIST ANALYTICAL DATA SCIENTIST OREN OWEN M.D. Performed By: #### B 12, MG, PHOS, URIC, [id number], MANDI, CMP, FOL, FE and TIBC #### [address] No Panel InformationOrdered By: Nas Pruett on 01-16-2024 Bedside Glucose Comment Glu2: cleaned meter [facility] Troponin I High Sensitivityo n 01-16-2024 Troponin I High Sensitivity 57329.2 pg/mL Off scale high 0.0-20.0 [facility] Comment on above: Result Comment: Crit ical Result I_TnIHS_d:36965.2 Called to and read back by: BRIDGETTE LUIS at: 01/16/2024 20:40:51 by:[id number] PERFORMED BY: [place] [address] PATHOLOGIST ANALYTICAL DATA SCIENTIST OREN OWEN M.D. Performed By: #### B 12, MG, PHOS, URIC, [id number], MANDI, CMP, FOL, FE and TIBC #### [address] Troponin I High Sensitivity 718479.4 pg/mL Off scale high 0.0-20.0 [facility] Comment on above: Result Comment: Crit ical Result I_TnIHS_d:166615.4 Called to and read back by: BROOKE CANDELARIA at: 01/16/2024 18:52:06 by:JULIO PERFORMED BY: [place] [address] PATHOLOGIST ANALYTICAL DATA SCIENTIST OREN OWEN M.D. Performed By: #### B 12, MG, PHOS, URIC, [id number], MANDI, CMP, FOL, FE and TIBC #### [address] Troponin I High Sensitivity 748787.2 pg/mL Off scale high 0.0-20.0 [facility] Comment on above: Result Comment: Crit ical Result I_TnIHS_d:882944.2 Called to and read back by: BROOKE CANDELARIA at: 01/16/2024 16:28:58 by:[id number] PERFORMED BY: [place] [address] PATHOLOGIST ANALYTICAL DATA SCIENTIST OREN OWEN M.D. Performed By: #### B 12, MG, PHOS, URIC, [id number], MANDI, CMP, FOL, FE and TIBC #### [facility] [address] [place], [place] [id number] [facility] Troponin I High Sensitivity 90625.4 pg/mL Off scale high 0.0-20.0 [facility] Comment on above: Result Comment: Crit ical Result I_TnIHS_d:02204.4 Called to and read back by: BROOKE CANDELARIA at: 01/16/2024 14:15:37 by:[email or web address] PERFORMED BY: [place] [address] PATHOLOGIST ANALYTICAL DATA SCIENTIST OREN OWEN M.D. Performed By: #### B 12, MG, PHOS, URIC, [id number], MANDI, CMP, FOL, FE and TIBC #### [facility] [address] [place] [address] [facility] No Panel InformationOrdered By: Willy Lambert on 01-14-2024 Miscellaneous Pathology Test See comment [facility] Comment on above: See report. Scanned copy available in EMR. Pathology Request for Lab Co rpon 01-14-2024 Pathology Request for Lab Ashley Normal [facility] Comment on above: Order Comment: Reaso n for Exam Acute kidney injury;Chronic kidney disease, stage 3b;Bilater Result Comment: See report. Scanned copy available in EMR. PERFORMED BY: [place] [address] PATHOLOGIST ANALYTICAL DATA SCIENTIST OREN OWEN M.D. Performed By: #### B 12, MG, PHOS, URIC, [id number], MANDI, CMP, FOL, FE and TIBC #### [facility] [address] [place] [address] [facility] Cholesterol [Mass/volume] in Serum or PlasmaOrdered By: Teo Stokes on 12-26-2023 Cholesterol [Mass/Vol] 91 mg/dL Low 140-200 [facility] Comment on above: Chol less than 200 m g/dl low riskChol 201-239 mg/dl borderline riskChol 240 mg/dl and greater high risk Result Comment: Chol less than 200 mg/dl low risk Chol 201-239 mg/dl borderline risk Chol 240 mg/dl and greater high risk Performed By: #### B 12, MG, PHOS, URIC, [id number], MANDI, CMP, FOL, FE and TIBC #### [facility] [address] [place] [id number] [place] Cholesterol in LDL Calc [Mas s/Vol]Ordered By: Teo Stokes on 12-26-2023 Cholesterol in LDL [Mass/Vol] 37 mg/dL 0-100 [facility] Comment on above: LDL ATP III CLASSIFI CATIONLDL less than 100 mg/dL OptimalLDL 100-129 mg/dL Near or above optimalLDL 130-159 mg/dL Borderline highLDL 160-189 mg/dL HighLDL greater than 189 mg/dL Very high Cholesterol in VLDL Calc [Ma ss/Vol]Ordered By: Teo Stokes on 12-26-2023 Cholesterol in VLDL [Mass/Vol] 18 mg/dL [facility] Lipid Panelon 12-26-2023 LDL Cholesterol,Calculated 37 mg/dL Normal 0-100 [facility] Comment on above: Result Comment: LDL ATP III CLASSIFICATION LDL less than 100 mg/dL Optimal LDL 100-129 mg/dL Near or above optimal LDL 130-159 mg/dL Borderline high LDL 160-189 mg/dL High LDL greater than 189 mg/dL Very high Performed By: #### B 12, MG, PHOS, URIC, [id number], MANDI, CMP, FOL, FE and TIBC #### [facility] [address] [place] [id number] [place] Triglyceride w/Reflex 94 mg/dL Normal 0-149 [facility] Comment on above: Result Comment: TRIG ATP III CLASSIFICATION TRIG less than 150 mg/dL Normal TRIG 150-199 mg/dL Borderline high TRIG 200-500 mg/dL High TRIG greater than 500 mg/dL Very high Standard traceable to the Center for Disease Conrtrol and Prevention (CDC) test method. Performed By: #### B 12, MG, PHOS, URIC, [id number], MANDI, CMP, FOL, FE and TIBC #### [facility] [address] VLDL CHOLESTEROL 18 mg/dL Normal [facility] Comment on above: Performed By: #### B 12, MG, PHOS, URIC, [id number], MANDI, CMP, FOL, FE and TIBC #### [facility] [address] Serum or plasma high density lipoprotein (HDL) cholesterol measurementOrdered By: Teo Stokes on 12-26-2023 Cholesterol in HDL [Mass/Vol] 35 mg/dL Normal 23-92 [facility] Comment on above: HDL CHOL ATP-III CLA SSIFICATION Cardiovascular RiskHDL > or equal to 60 mg/dL LOWHDL < 40 mg/dL HIGH Result Comment: HDL CHOL ATP-III CLASSIFICATION Cardiovascular Risk HDL > or equal to 60 mg/dL LOW HDL < 40 mg/dL HIGH Performed By: #### B 12, MG, PHOS, URIC, [id number], MANDI, CMP, FOL, FE and TIBC #### [facility] [address] Serum or plasma total choles terol/high density lipoprotein (HDL) cholesterol mass ratOrdered By: Teo Stokes on 12-26-2023 Cholesterol.total/Sonya sterol in HDL [Mass ratio] 2.6 {ratio} Normal <5.0 [facility] Comment on above: Result Comment: PERF ORMED BY: [place] [address] PATHOLOGIST ANALYTICAL DATA SCIENTIST OREN OWEN M.D. Performed By: #### B 12, MG, PHOS, URIC, [id number], MANDI, CMP, FOL, FE and TIBC #### [address] Triglyceride [Mass/volume] i n Serum or PlasmaOrdered By: Teo Stokes on 12-26-2023 Triglyceride [Mass/Vol] 94 mg/dL 0-149 [facility] Comment on above: TRIG ATP III CLASSIF ICATIONTRIG less than 150 mg/dL NormalTRIG 150-199 mg/dL Borderline highTRIG 200-500 mg/dL High TRIG greater than 500 mg/dL Very highStandard traceable to the Center for Disease Conrtrol and Prevention (CDC) test method. Ambulatory Visit Summaryon 0 11-04-2023 Ambulatory Visit [...] APRN, [place] X Where: [facility] Eva Normal [facility] Erythrocyte distribution wid th Auto (RBC) [Ratio]on 10-16-2023 Erythrocyte distribution width (RBC) [Ratio] 15.4 % High 11.0-15.0 [facility] Hematocrit Auto (Bld) [Volum e fraction]on 10-16-2023 Hematocrit (Bld) [Volume fraction] 41.3 % Low 42.0-54.0 [facility] Hemoglobin [Mass/volume] in Bloodon 10-16-2023 Hemoglobin (Bld) [Mass/Vol] 13.3 g/dL Low 14.0-18.0 [facility] Laboratory - Chemistry and C hemistry - challengeon 10-16-2023 Magnesium [Mass/Vol] 2.1 mg/dL 1.8-2.4 [facility] Urate [Mass/Vol] 5.9 mg/dL 3.5-7.2 [facility] Leukocytes [#/volume] correc phil for nucleated erythrocytes in Blood by Automated counon 10-16-2023 WBC corrected for nucl RBC Auto (Bld) [#/Vol] 9.3 10 3/uL 4.0-11.0 [facility] MCH Auto (RBC) [Entitic mass ]on 10-16-2023 MCH (RBC) [Entitic mass] 27.8 pg 25.9-34.0 [facility] MCHC Auto (RBC) [Mass/Vol]on 10-16-2023 MCHC (RBC) [Mass/Vol] 32.2 g/dL 29.9-35.2 [facility] MCV Auto (RBC) [Entitic vol] on 10-16-2023 MCV (RBC) [Entitic vol] 86.2 fL 80.0-94.0 [facility] No Panel Informationon 10-15 Phosphorus Level 2.7 mg/dL 2.6-4.7 [facility] Platelet mean volume Auto (B ld) [Entitic vol]on 10-16-2023 Platelet mean volume (Bld) [Entitic vol] 10.1 fL 9.5-13.5 [facility] Platelets Auto (Bld) [#/Vol] on 10-16-2023 Platelets (Bld) [#/Vol] 197 10 3/uL 150-450 [facility] RBC Auto (Bld) [#/Vol]on RBC (Bld) [#/Vol] 4.79 10 6/uL 4.70-6.10 [facility] UroVysion Fish and Urine Cyt o ([facility])on 10-10-2023 UVFISH & UC Diagnosis Info Invalid Interpretation Code [facility] Comment on above: Result Comment: A:Ur [...] on: 10/10/2023 11:17:43 Performed By: #### 1 [id number] #### [facility] [address] [place] [address] Consent for Procedure/Surger yon 10-08-2023 Consent for Procedure/Surgery [id number]#1.00TIFF [facility] Ambulatory Visit Summaryon 0 10-07-2023 Ambulatory [...] 10:30 AM EDT Where: [facility] Ambulatory Visit Summaryon 0 10-03-2023 Ambulatory Visit [...] ADRIA When: Where: [facility] [address] , [place] [address] [phone] Medications What How Much When Instructions Unchanged [...] is inserted (more content not included)... Normal [facility] Health Recordson 2023 Home Health Records [id number]#1.00TIFF Carmella Tanner [facility] Patient Educationon 10-03-19 Patient Education Urology [...] these instructions at home: Medicines ? Take uuji-tpa-nmuaect and prescription medicines only as told by [...] provider. Document Revised: 01/31/2021 Document Reviewed: 01/31/2021 [email or web address] Patient Education ? 2022 [employer]. [email or web address] [facility] UroVysion Fish and Urine Cyt o ([facility])on 10-03-2023 [facility] Method of Extraction Bladder Wash Normal [facility] Comment on above: Performed By: #### 1 [id number] #### [facility] [address] [place] [address] [facility] Number of Jars 1 Invalid Interpretation Code [facility] Comment on above: Performed By: #### 1 [id number] #### [facility] [address] [place] [address] [facility] Specimen Urine Normal [facility] Comment on above: Performed By: #### 1 [id number] #### [facility] [address] [place] [address] [facility] Type of Service Technical Only Normal [facility] Comment on above: Performed By: #### 1 [id number] #### [facility] [address] [place] [address] Urology Office/Clinic Noteon 10-03-2023 Urology Office/Clinic Note Chief Complaint Patient in office for Cysto/villarreal change HPI Staff Cystoscopy for 3 month [...] for b.t., diffuse open tics, piece of villarreal in bladder. Trabeculated: Severe (3) The Ureteral orifices: Show efflux of clear urine. Specimens Removed: Bladder wash sent for FISH and Cytology test Removal: Cystoscope is removed. The patient tolerated it well. Postoperative Information Patient is discharged home with antibiotic coverage. Follow up arranged. Assessment/Plan 1. Foreign body in bladder (T19.1XXA: Foreign body in bladder, initial encounter) Piece of Villarreal removed from bladder. 2. History of bladder [...] however pt and his decided to keep Villarreal in place rather than CIC given their age and overall health. HH was going to start monthly villarreal changes. Pt has been in the ER multiple times due to issues with Villarreal. Most recently, pt presented to [facility] ER 09/29/23 and 09/30/23 due to catheter not draining. Last changed 09/29/23 in the ER. Villarreal changed in office today, 18Fr. prefers pt to come to our office monthly for catheter changes vs HH due to scheduling. 4. BPH with urinary obstruction (N40.1: Benign prostatic hyperplasia with lower urinary tract symptoms) Not currently taking any BPH meds. Cysto IO today. Reference procedural section for findings. Follow-up With When Contact Information Katia JACOBS MD, [facility] [address], [place] [address] [phone] Additional Instructions: Cysto/FISH/cytol in 6 mos & monthly villarreal changes Patient Education Acute Urinary Retention, Male I, Na Gerardo, personally scribed for Dr. Jacobs on 10/03/2023 14:19:40. Documentation recorded by the Na carter, accurately reflects the services(s) I performed and decisions made by me. Authenticated by Dr. Jacobs on 10/03/2023 14:24:28.14:19:40. Problem List/Past Medical History Ongoing Abdominal aortic aneurysm Acute kidney failure Bladder cancer Bladder mass Bladder stones BPH with uri (more content not included)... Normal [facility] Comment on above: Result Comment: Elec tronically Signed By: Katia JACOBS MD\.br\Date and Time Signed: 10/03/23 14:24 EDT\.br\Electronically Co-Signed By: Na Gerardo.br\Date and Time Co-Signed: 10/03/23 14:19 EDT ED Note-Physicianon 10-02-19 ED Note-Physician [id number]#1.00TIFF Normal [facility] Laboratory - Chemistry and C hemistry - challengeon 09-30-2023 Bilirubin Ql (U) Negative [facility] Glucose (U) [Mass/Vol] Negative [facility] Ketones Ql (U) Negative [facility] pH (U) 7.0 [pH] [facility] Specific gravity (U) [Rel density] 1.010 [facility] Urobilinogen (U) [Mass/Vol] 0.2 mg/dL [facility] Laboratory - Specimen inform ationon 09-30-2023 Color (U) LtYellow [facility] Laboratory - Urinalysison Leukocyte esterase Test strip Ql (U) Large [facility] Nitrite Ql (U) Positive [facility] Protein Ql (U) 30 [facility] CT abdomen pelvis wo conon 0 08-18-2023 CT abdomen pelvis wo con [facility] [address] CT Scan Report Signed Patient: Alex Anderson MR#: [id number] 36 : 1945 Acct:[id number] Age/Sex: 77 / M ADM Date: 08/18/23 Loc: CT Room: Type: [facility] Attending Dr: Margarito Valentine MD Copies [...] aneurysm suboptimally evaluated without IV contrast. The [place] aneurysmal sac has decreased in size now measuring 5.3 cm in greatest axial dimension.[ GI: Stomach is grossly unremarkable. Small bowel appears nondilated. No acute colonic abnormality.[ Pelvis:[Prostatomegaly. Villarreal catheter is in place. There appears to be wall thickening and surrounding inflammatory changes involving the urinary bladder.] Peritoneum/Retroperitoneum :No free air, free fluid or lymphadenopathy.[ Abd wall/Bones:Abdominal wall demonstrates no acute findings. Osseous structures demonstrate degenerative change.[ CT/CT abdomen pelvis wo con IMPRESSION: 1. Endovascular repair of a fusiform type infrarenal abdominal aortic aneurysm with interval decrease of the [place] aneurysmal sac since the prior CTA study. The stent is suboptimally evaluated due to lack of IV contrast. 2. Prostatomegaly with Villarreal catheter in place. There appears to be urinary bladder wall thickening and inflammatory changes suspicious for cystitis. Correlation with urinalysis is recommended. Impression dictated by: Rogelio Agustin Jr., D.OSigrid08/18/2023 3:18 PM Dictation Location: [place] [address] Transcribed By: [facility] 08/18/23 1518 Dictated By: Rogelio Agustin Jr, DO 08/18/23 1503 Signed By: 08/18/23 1518 Normal [facility] ISTAT XRay CREon 08-18-2023 ISTAT GFR 26.776 Normal [facility] Comment on above: Result Comment: PERF ORMED BY: [place] [address] PATHOLOGIST ANALYTICAL DATA SCIENTIST OREN OWEN M.D. Performed By: #### B 12, MG, PHOS, URIC, [id number], MANDI, CMP, FOL, FE and TIBC #### [address] No Panel InformationOrdered By: Margarito Valentine on 08-18-2023 Bedside Estimated GFR (eGFR) 26.776 [facility] Whole blood creatinine measu rementOrdered By: Margarito Valentine on 08-18-2023 Creatinine [Mass/Vol] 2.4 mg/dL High 0.6-1.3 [facility] Comment on above: ER/ESD physician is notified/shown all ISTAT results.Critical values may be confirmed by laboratory testing ifdeemed necessary by ER attending doctor. Result Comment: ER/E SD physician is notified/shown all ISTAT results. Critical values may be confirmed by laboratory testing if deemed necessary by ER attending doctor. Performed By: #### B 12, MG, PHOS, URIC, [id number], MANDI, CMP, FOL, FE and TIBC #### [facility] [address] ED Note-Physicianon 08-07-19 ED Note-Physician [id number]#1.00TIFF Normal [facility] ED Note-Physicianon 08-06-19 24 ED Note-Physician [id number]#1.00TIFF Normal [facility] ED Note-Physician [id number]#1.00TIFF Normal [facility] ED Note-Physician [id number]#1.00TIFF Normal [facility] Lab Reportson 08-06-2023 Lab Reports [id number]#1.00TIFF Normal [facility] Lab Reports [id number]#1.00TIFF Normal [facility] Reminderson 08-01-2023 Reminders - From: Dana Rivas To: [facility] - Recalls Jacobs; Cc: Dana Rivas; Sent: 03/14/2023 08:18:18 EDT Show up: 07/25/2023 08:18:00 EST Subject: cysto/fish/cytol Due Date/Time: 08/11/2023 08:18:00 EDT Reminder/Recall Patient is due in August 2023 for 3 month cysto/fish/cytol Patient sched for 09/09/23 in [place] office. he will be due in November 2023. Normal [facility] Physician Orderon 07-04-2023 Physician Order [id number]#1.00TIFF Normal [facility] Patient Educationon 06-30-19 Patient Education Urology [...] these instructions at home: Medicines ? Take sthn-kkt-paqfkcz and prescription medicines only as told by [...] provider. Document Revised: 01/31/2021 Document Reviewed: 01/31/2021 [email or web address] Patient Education ? 2022 [employer]. Carmella Tanner [facility] [...] [facility] [address], [place] [phone] Additional Instructions: 1 day for catheter removal [...] Use:. Cigarettes, (more content not included)... Normal [facility] Comment on above: Result Comment: Elec tronically Signed By: Katia JACOBS MD\.br\Date and Time Signed: 06/30/23 14:32 EST\.br\Electronically Co-Signed By: Apple Escoto\.br\Date and Time Co-Signed: 06/30/23 14:30 EST [facility] Fish and Urine Cyt o ([facility])on 06-26-2023 [facility] UC Revision Information Invalid Interpretation Code [facility] Comment on above: Result Comment: Brayan ection Reason -[ Fredi Stephen, 06/26/23 - 10:32 ] Corrected report issued to update PMS/PWS. The diagnosis remains unchanged. Correction Notes - Performed By: #### 1 [id number] #### [facility] [address] [place] [address] Ambulatory Visit Summaryon 0 06-16-2023 Ambulatory Visit Summary ALEX ANDERSON :1945 Visit Date:06/16/2023 Ambulatory Visit Instructions Your Diagnosis BPH with urinary obstruction Your Care Team Attending Physician - Katia JACOBS MD Primary Care Physician - IDANIA CASILLAS, STANLEY Rich This Is Your Medications List acetaminophen-hydrocodone ([place] 325 mg-7.5 mg oral tablet) albuterol (Albuterol [...] Katia JACOBS MD Where: [facility] Consent for Procedure/Surger yon 06-10-2023 Consent for Procedure/Surgery [id number]#1.00TIFF [facility] Consent for Treatmenton 05-26 Consent for Treatment [id number]#1.00TIFF [facility] IntraOperative Documentson 0 06-10-2023 IntraOperative Documents [id number]#1.00TIFF [facility] Main OR Intraoperative Recor don 06-10-2023 Main OR Intraoperative Record IntraOp Document Type FTURO Summary Primary Physician: Katia JACOBS MD Finalized Date/Time: 06/10/23 15:18:46 Pt. Name: ALEX ANDERSON/Sex: 1945 Male Med Rec #: [id number] Physician: Katia JACOBS MD Financial #: [id number] Pt. 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 Surgeon Description cysto, REZUM treatment x 12 Primary Procedure Yes Primary Surgeon ARLENE CASILLAS, Katia Bee 06/10/23 14:40:00 Stop 06/10/23 15:07:00 Anesthesia Type [...] Procedure(s) CYSTOSCOPY LOCAL Patient Identity Birthday, ID Dereje LEWIS(.) Verified (select at Check, Patient least 2): [...] WOLFGANG Horton RN, Ruthann 06/10/23 15:18 Normal [facility] Main OR Preoperative Recordo n 06-10-2023 Main OR Preoperative Record Holding Area Document Type FTURO Summary Primary Physician: Katia JACOBS MD Finalized Date/Time: 06/10/23 14:49:26 Pt. Name: LAEX ANDERSON /Sex: 1945 Male Med Rec #: [id number] Physician: Katia JACOBS MD Financial #: [id number] Pt. Type: O Room/Bed: / Admit/Disch: 06/10/23 [...] GLASSES; BILATERAL Limitations: UP AD JOSIAH. PT [place] DEE-NI' Comment: CATARACT LENS IMPLANTS Complaints of Pain: [...] WOLFGANG Horton RN, Ruthann 06/10/23 14:49 Normal [facility] Operative Reporton Operative Report Patient: MELISSA [...] satisfactory condition, Discharge instructions are provided. Normal [facility] Comment on above: Result Comment: Elec tronically Signed By: ARLENE CASILLAS, Katia Delgado\Date and Time Signed: 06/10/23 15:21 EST Operative [...] with antibiotic coverage, Follow up arranged. Normal [facility] Comment on above: Result Comment: Elec tronically Signed By: ARLENE CASILLAS, Katia Hall\.br\Date and Time Signed: 06/10/23 15:20 EST [facility] Urine Cyt o ([facility])on 06-10-2023 [facility] Method of Extraction Catheterized Normal [facility] Comment on above: Performed By: #### 1 [id number] #### [facility] [address] [place] [address] [facility] Number of Jars 1 Invalid Interpretation Code [facility] Comment on above: Performed By: #### 1 [id number] #### [facility] [address] [place] [address] [facility] Specimen Urine Normal [facility] Comment on above: Performed By: #### 1 [id number] #### [facility] [address] [place] [address] [facility] Type of Service Technical Only Normal [facility] Comment on above: Performed By: #### 1 [id number] #### [facility] [address] [place] [address] Alanine aminotransferase [En zymatic activity/volume] in Serum or PlasmaOrdered By: Celia Griffin on 04-08-2023 ALT [Catalytic activity/Vol] 17 U/L Normal 7-52 [facility] Comment on above: Order Comment: Reaso n for Exam Acute kidney injury;Chronic kidney disease, stage 3b;Bilater Performed By: #### B 12, MG, PHOS, URIC, [id number], MANDI, CMP, FOL, FE and TIBC #### [facility] [address] [place] [address] [place] Albumin [Mass/volume] in Ser um or Plasma by Bromocresol green (BCG) dye binding methoOrdered By: Celia Griffin on 04-08-2023 Albumin BCG dye [Mass/Vol] 4.2 g/dL 3.5-5.7 [facility] Alkaline phosphatase [Enzyma tic activity/volume] in Serum or PlasmaOrdered By: Celia Griffin on 04-08-2023 ALP [Catalytic activity/Vol] 72 U/L Normal 34-104 [facility] Comment on above: Order Comment: Reaso n for Exam Acute kidney injury;Chronic kidney disease, stage 3b;Bilater Performed By: #### B 12, MG, PHOS, URIC, [id number], MANDI, CMP, FOL, FE and TIBC #### [facility] [address] [place] [address] [place] Aspartate aminotransferase [ Enzymatic activity/volume] in Serum or PlasmaOrdered By: Celia Griffin on 04-08-2023 AST [Catalytic activity/Vol] 16 U/L Normal 13-39 [facility] Comment on above: Order Comment: Reaso n for Exam Acute kidney injury;Chronic kidney disease, stage 3b;Bilater Performed By: #### B 12, MG, PHOS, URIC, [id number], MANDI, CMP, FOL, FE and TIBC #### [facility] [address] [place] [address] [place] Automated erythrocytes count in urine sediment (number/area)Ordered By: Celia Griffin on 04-08-2023 RBC Auto (Urine sed) [#/Area] 3-4 [HPF] 0-4 [facility] Automated leukocytes count i n urine sediment (number/area)Ordered By: Celia Griffin on 04-08-2023 WBC Auto (Urine sed) [#/Area] 50-100 [HPF] 0-4 [facility] Automated urine color determ inationOrdered By: Celia Griffin on 04-08-2023 Color (U) Yellow Normal Yellow [facility] Comment on above: Order Comment: Reaso n for Exam Acute kidney injury;Chronic kidney disease, stage 3b;Bilater Performed By: #### B 12, MG, PHOS, URIC, [id number], MANDI, CMP, FOL, FE and TIBC #### [facility] [address] Bilirubin Test strip Ql (U)O rdered By: Celia Griffin on 04-08-2023 Bilirubin Ql (U) Negative Negative [facility] Bilirubin.total [Mass/volume ] in Serum or PlasmaOrdered By: Celia Terezacatherinefrancoise on 04-08-2023 Bilirubin [Mass/Vol] 0.5 mg/dL Normal 0.3-1.0 [facility] Comment on above: Order Comment: Reaso n for Exam Acute kidney injury;Chronic kidney disease, stage 3b;Bilater Performed By: #### B 12, MG, PHOS, URIC, [id number], MANDI, CMP, FOL, FE and TIBC #### [facility] [address] [place] [address] [place] Calcium [Mass/volume] in Ser um or PlasmaOrdered By: Jonhcelestino Francesfrancoise on 04-08-2023 Calcium [Mass/Vol] 9.3 mg/dL Normal 8.6-10.3 [facility] Comment on above: Order Comment: Reaso n for Exam Acute kidney injury;Chronic kidney disease, stage 3b;Bilater Performed By: #### B 12, MG, PHOS, URIC, [id number], MANDI, CMP, FOL, FE and TIBC #### [facility] [address] [place] [address] [place] Carbon dioxide, total [Moles /volume] in Serum or PlasmaOrdered By: Celia Griffin on 04-08-2023 CO2 [Moles/Vol] 31.6 mmol/L High 21.0-31.0 [facility] Comment on above: Order Comment: Reaso n for Exam Acute kidney injury;Chronic kidney disease, stage 3b;Bilater Performed By: #### B 12, MG, PHOS, URIC, [id number], MANDI, CMP, FOL, FE and TIBC #### [facility] [address] [place] [address] [place] Chloride [Moles/volume] in S marium or PlasmaOrdered By: Celia Griffin on 04-08-2023 Chloride [Moles/Vol] 107 mmol/L Normal 98-107 [facility] Comment on above: Order Comment: Reaso n for Exam Acute kidney injury;Chronic kidney disease, stage 3b;Bilater Performed By: #### B 12, MG, PHOS, URIC, [id number], MANDI, CMP, FOL, FE and TIBC #### [facility] [address] [place] [id number] [place] Cholesterol [Mass/volume] in Serum or PlasmaOrdered By: Teo Stokes on 04-08-2023 Cholesterol [Mass/Vol] 107 mg/dL Low 140-200 [facility] Comment on above: Chol less than 200 m g/dl low riskChol 201-239 mg/dl borderline riskChol 240 mg/dl and greater high risk Result Comment: Chol less than 200 mg/dl low risk Chol 201-239 mg/dl borderline risk Chol 240 mg/dl and greater high risk Performed By: #### B 12, MG, PHOS, URIC, [id number], MANDI, CMP, FOL, FE and TIBC #### [facility] [address] [place] [address] [place] Cholesterol in LDL Calc [Mas s/Vol]Ordered By: Teo Stokes on 04-08-2023 Cholesterol in LDL [Mass/Vol] 47 mg/dL 0-100 [facility] Comment on above: LDL ATP III CLASSIFI CATIONLDL less than 100 mg/dL OptimalLDL 100-129 mg/dL Near or above optimalLDL 130-159 mg/dL Borderline highLDL 160-189 mg/dL HighLDL greater than 189 mg/dL Very high Cholesterol in VLDL Calc [Ma ss/Vol]Ordered By: Teo Stokes on 04-08-2023 Cholesterol in VLDL [Mass/Vol] 26 mg/dL [facility] Comprehensive Metabolic Pane howard 04-08-2023 Albumin [Mass/Vol] 4.2 g/dL Normal 3.5-5.7 [facility] Comment on above: Order Comment: Reaso n for Exam Acute kidney injury;Chronic kidney disease, stage 3b;Bilater Performed By: #### B 12, MG, PHOS, URIC, [id number], MANDI, CMP, FOL, FE and TIBC #### [facility] [address] [place] [id number] [place] GFR/1.73 sq M.predicted MDRD (S/P/Bld) [Vol rate/Area] 50.692 mL/min/{1.73_m2} Normal [facility] Comment on above: Order Comment: Reaso n for Exam Acute kidney injury;Chronic kidney disease, stage 3b;Bilater Performed By: #### B 12, MG, PHOS, URIC, [id number], MANDI, CMP, FOL, FE and TIBC #### [facility] [address] [place] [id number] [place] Creatinine [Mass/volume] in Serum or PlasmaOrdered By: Celia Griffin on 04-08-2023 Creatinine [Mass/Vol] 1.41 mg/dL High 0.70-1.30 [facility] Comment on above: Order Comment: Reaso n for Exam Acute kidney injury;Chronic kidney disease, stage 3b;Bilater Performed By: #### B 12, MG, PHOS, URIC, [id number], MANDI, CMP, FOL, FE and TIBC #### [facility] [address] [place] [id number] [place] Creatinine [Mass/volume] in UrineOrdered By: Celia Griffin on 04-08-2023 Creatinine (U) [Mass/Vol] 90.0 mg/dL 14.0-26.0 [facility] Dipstick and Microscopicon 1 06-08-2022 Appearance (U) Cloudy Critically abnormal Clear [facility] Comment on above: Order Comment: Reaso n for Exam Acute kidney injury;Chronic kidney disease, stage 3b;Bilater Performed By: #### B 12, MG, PHOS, URIC, [id number], MANDI, CMP, FOL, FE and TIBC #### [facility] [address] Bacteria,Urine 4+ High None Seen [facility] Comment on above: Order Comment: Reaso n for Exam Acute kidney injury;Chronic kidney disease, stage 3b;Bilater Performed By: #### B 12, MG, PHOS, URIC, [id number], MANDI, CMP, FOL, FE and TIBC #### [facility] [address] Bilirubin,Urine Negative Normal Negative [facility] Comment on above: Order Comment: Reaso n for Exam Acute kidney injury;Chronic kidney disease, stage 3b;Bilater Performed By: #### B 12, MG, PHOS, URIC, [id number], MANDI, CMP, FOL, FE and TIBC #### [facility] [address] Glucose Ql (U) Normal Normal Normal [facility] Comment on above: Order Comment: Reaso n for Exam Acute kidney injury;Chronic kidney disease, stage 3b;Bilater Performed By: #### B 12, MG, PHOS, URIC, [id number], MANDI, CMP, FOL, FE and TIBC #### [address] Hyaline Casts,Urine 9-19 High 0-8 [facility] Comment on above: Order Comment: Reaso n for Exam Acute kidney injury;Chronic kidney disease, stage 3b;Bilater Result Comment: PERF ORMED BY: [place] [address] PATHOLOGIST ANALYTICAL DATA SCIENTIST OREN OWEN M.D. Performed By: #### B 12, MG, PHOS, URIC, [id number], MANDI, CMP, FOL, FE and TIBC #### [address] Ketones Ql (U) Negative Normal Negative [facility] Comment on above: Order Comment: Reaso n for Exam Acute kidney injury;Chronic kidney disease, stage 3b;Bilater Performed By: #### B 12, MG, PHOS, URIC, [id number], MANDI, CMP, FOL, FE and TIBC #### [address] Leukocyte esterase Test strip Ql (U) 4+ High Negative [facility] Comment on above: Order Comment: Reaso n for Exam Acute kidney injury;Chronic kidney disease, stage 3b;Bilater Performed By: #### B 12, MG, PHOS, URIC, [id number], MANDI, CMP, FOL, FE and TIBC #### [address] Nitrite,Urine Positive High Negative [facility] Comment on above: Order Comment: Reaso n for Exam Acute kidney injury;Chronic kidney disease, stage 3b;Bilater Performed By: #### B 12, MG, PHOS, URIC, [id number], MANDI, CMP, FOL, FE and TIBC #### [address] Occult Blood,Urine 1+ High Negative [facility] Comment on above: Order Comment: Reaso n for Exam Acute kidney injury;Chronic kidney disease, stage 3b;Bilater Result Comment: PERF ORMED BY: [place] [address] PATHOLOGIST ANALYTICAL DATA SCIENTIST OREN OWEN M.D. Performed By: #### B 12, MG, PHOS, URIC, [id number], MANDI, CMP, FOL, FE and TIBC #### [address] Protein,Urine Trace High Negative [facility] Comment on above: Order Comment: Reaso n for Exam Acute kidney injury;Chronic kidney disease, stage 3b;Bilater Performed By: #### B 12, MG, PHOS, URIC, [id number], MANDI, CMP, FOL, FE and TIBC #### [address] RBC,Urine 3-4 Normal 0-4 [facility] Comment on above: Order Comment: Reaso n for Exam Acute kidney injury;Chronic kidney disease, stage 3b;Bilater Performed By: #### B 12, MG, PHOS, URIC, [id number], MANDI, CMP, FOL, FE and TIBC #### [address] Specificy [place],Urine 1.017 Normal 1.00 1-1.03 0 [facility] Comment on above: Order Comment: Reaso n for Exam Acute kidney injury;Chronic kidney disease, stage 3b;Bilater Performed By: #### B 12, MG, PHOS, URIC, [id number], MANDI, CMP, FOL, FE and TIBC #### [address] Squamous Epithelial Cell,Urine 0-1 Normal 0-2 [facility] Comment on above: Order Comment: Reaso n for Exam Acute kidney injury;Chronic kidney disease, stage 3b;Bilater Performed By: #### B 12, MG, PHOS, URIC, [id number], MANDI, CMP, FOL, FE and TIBC #### [address] Urobilinogen,Urine Normal Normal Normal [facility] Comment on above: Order Comment: Reaso n for Exam Acute kidney injury;Chronic kidney disease, stage 3b;Bilater Performed By: #### B 12, MG, PHOS, URIC, [id number], MANDI, CMP, FOL, FE and TIBC #### [facility] [address] [place] [address] WBC,Urine 50-100 High 0-4 [facility] Comment on above: Order Comment: Reaso n for Exam Acute kidney injury;Chronic kidney disease, stage 3b;Bilater Performed By: #### B 12, MG, PHOS, URIC, [id number], MANDI, CMP, FOL, FE and TIBC #### [address] Erythrocyte distribution wid th [Ratio] by Automated countOrdered By: Celia Griffin on 04-08-2023 Erythrocyte distribution width (RBC) [Ratio] 15.7 % High 12.0-14.8 [facility] Comment on above: Order Comment: Reaso n for Exam Acute kidney injury;Chronic kidney disease, stage 3b;Bilater Performed By: #### B 12, MG, PHOS, URIC, [id number], MANDI, CMP, FOL, FE and TIBC #### [facility] [address] Erythrocytes [#/volume] in B lood by Automated countOrdered By: Celia Griffin on 04-08-2023 RBC (Bld) [#/Vol] 5.22 10*6/uL Normal 3.90-5.60 [facility] Comment on above: Order Comment: Reaso n for Exam Acute kidney injury;Chronic kidney disease, stage 3b;Bilater Performed By: #### B 12, MG, PHOS, URIC, [id number], MANDI, CMP, FOL, FE and TIBC #### [facility] [address] Ferritin [Mass/volume] in Se rum or PlasmaOrdered By: Celia Griffin on 04-08-2023 Ferritin [Mass/Vol] 34.1 ng/mL Normal 23.9-336.2 [facility] Comment on above: Order Comment: Reaso n for Exam Acute kidney injury;Chronic kidney disease, stage 3b;Bilater Performed By: #### B 12, MG, PHOS, URIC, [id number], MANDI, CMP, FOL, FE and TIBC #### [facility] [address] Folateon 04-08-2023 Folate 34.0 ng/mL Normal >5.9 [facility] Comment on above: Order Comment: Reaso n for Exam Acute kidney injury;Chronic kidney disease, stage 3b;Bilater Result Comment: Caryn te reference range: >5.9 ng/ml The WHO technical consultation on folate and vitamin b12 deficiencies has determined that folate concentrations less than 4 ng/ml are considered deficient. Performed By: #### B 12, MG, PHOS, URIC, [id number], MANDI, CMP, FOL, FE and TIBC #### [facility] [address] [place] [id number] [place] Folate [Mass/volume] in Seru m or PlasmaOrdered By: Celia Griffin on 04-08-2023 Folate [Mass/Vol] 34.0 ng/mL >5.9 [facility] Comment on above: Folate reference ran ge: >5.9 ng/mlThe WHO technical consultation on folate and vitamin [id number] has determined that folate concentrations lessthan 4 ng/ml are considered deficient. Glucose [Mass/volume] in Ser um or PlasmaOrdered By: Celia Griffin on 04-08-2023 Glucose [Mass/Vol] 107 mg/dL High 70-100 [facility] Comment on above: ADA recommended refe rence rangeRandom Glucose Reference Range is dependent on time and content of last meal. Glucose of more than 200 mg/dL in a nonstressed, ambulatory subject supports the diagnosis of Diabetes Mellitus. Order Comment: Reaso n for Exam Acute kidney injury;Chronic kidney disease, stage 3b;Bilater Result Comment: [place] om Glucose Reference Range is dependent on time and content of last meal. Glucose of more than 200 mg/dL in a nonstressed, ambulatory subject supports the diagnosis of Diabetes Mellitus. ADA recommended reference range Performed By: #### B 12, MG, PHOS, URIC, [id number], MANDI, CMP, FOL, FE and TIBC #### [facility] [address] [place] [address] [place] Hematocrit [Volume Fraction] of Blood by Automated countOrdered By: Celia Griffin on 04-08-2023 Hematocrit (Bld) [Volume fraction] 43.8 % Normal 38.8-50.0 [facility] Comment on above: Order Comment: Reaso n for Exam Acute kidney injury;Chronic kidney disease, stage 3b;Bilater Performed By: #### B 12, MG, PHOS, URIC, [id number], MANDI, CMP, FOL, FE and TIBC #### [facility] [address] [place] [id number] [place] Hemoglobin [Mass/volume] in BloodOrdered By: Celia Griffin on 04-08-2023 Hemoglobin (Bld) [Mass/Vol] 14.3 g/dL Normal 13.0-17.0 [facility] Comment on above: Order Comment: Reaso n for Exam Acute kidney injury;Chronic kidney disease, stage 3b;Bilater Performed By: #### B 12, MG, PHOS, URIC, [id number], MANDI, CMP, FOL, FE and TIBC #### [facility] [address] Hemogram CBC Without Diffon 04-08-2023 Mean Corpuscular HGB Conc 32.6 g/dL Normal 32.5-35.6 [facility] Comment on above: Order Comment: Reaso n for Exam Acute kidney injury;Chronic kidney disease, stage 3b;Bilater Performed By: #### B 12, MG, PHOS, URIC, [id number], MANDI, CMP, FOL, FE and TIBC #### [facility] [address] [place] [address] WBC (Bld) [#/Vol] 8.4 10*3/uL Normal 4.1-10.5 [facility] Comment on above: Order Comment: Reaso n for Exam Acute kidney injury;Chronic kidney disease, stage 3b;Bilater Performed By: #### B 12, MG, PHOS, URIC, [id number], MANDI, CMP, FOL, FE and TIBC #### [facility] [address] [place] [address] Iron [Mass/volume] in Serum or PlasmaOrdered By: Celia Griffin on 04-08-2023 Iron [Mass/Vol] 53 ug/dL Normal 50-212 [facility] Comment on above: Order Comment: Reaso n for Exam Acute kidney injury;Chronic kidney disease, stage 3b;Bilater Performed By: #### B 12, MG, PHOS, URIC, [id number], MANDI, CMP, FOL, FE and TIBC #### [facility] [address] [place] [address] [place] Iron and TIBC Profileon 03-26 % Iron Saturation 14.3 % Low 20-50 [facility] Comment on above: Order Comment: Reaso n for Exam Acute kidney injury;Chronic kidney disease, stage 3b;Bilater Performed By: #### B 12, MG, PHOS, URIC, [id number], MANDI, CMP, FOL, FE and TIBC #### [facility] [address] [place] [address] [place] Total Iron Binding Capacity 370 ug/dL Normal 255-450 [facility] Comment on above: Order Comment: Reaso n for Exam Acute kidney injury;Chronic kidney disease, stage 3b;Bilater Performed By: #### B 12, MG, PHOS, URIC, [id number], MANDI, CMP, FOL, FE and TIBC #### [facility] [address] [place] [id number] [facility] Iron binding capacity [Mass/ volume] in Serum or PlasmaOrdered By: Celia Griffin on 04-08-2023 Iron binding capacity [Mass/Vol] 370 ug/dL 255-450 [facility] Iron saturation [Mass Fracti on] in Serum or PlasmaOrdered By: Celia Griffin on 04-08-2023 Iron saturation [Mass fraction] 14.3 % 20-50 [facility] Ketones Auto test strip (U) [Mass/Vol]Ordered By: Celia Griffin on 04-08-2023 Ketones (U) [Mass/Vol] Negative Negative [facility] - UrinalysisOrder ed By: Celia Griffin on 04-08-2023 Hyaline casts LM Ql (Urine sed) 9-19 [LPF] 0-8 [facility] Leukocytes [#/volume] correc phil for nucleated erythrocytes in Blood by Automated counOrdered By: Celia Griffin on 04-08-2023 WBC corrected for nucl RBC Auto (Bld) [#/Vol] 8.4 10*3/uL 4.1-10.5 [facility] Lipid Panelon 04-08-2023 LDL Cholesterol,Calculated 47 mg/dL Normal 0-100 [facility] Comment on above: Result Comment: LDL ATP III CLASSIFICATION LDL less than 100 mg/dL Optimal LDL 100-129 mg/dL Near or above optimal LDL 130-159 mg/dL Borderline high LDL 160-189 mg/dL High LDL greater than 189 mg/dL Very high Performed By: #### B 12, MG, PHOS, URIC, [id number], MANDI, CMP, FOL, FE and TIBC #### [facility] [address] Triglyceride w/Reflex 131 mg/dL Normal 0-149 [facility] Comment on above: Result Comment: TRIG ATP III CLASSIFICATION TRIG less than 150 mg/dL Normal TRIG 150-199 mg/dL Borderline high TRIG 200-500 mg/dL High TRIG greater than 500 mg/dL Very high Standard traceable to the Center for Disease Conrtrol and Prevention (CDC) test method. Performed By: #### B 12, MG, PHOS, URIC, [id number], MANDI, CMP, FOL, FE and TIBC #### [facility] [address] VLDL CHOLESTEROL 26 mg/dL Normal [facility] Comment on above: Performed By: #### B 12, MG, PHOS, URIC, [id number], MANDI, CMP, FOL, FE and TIBC #### [address] MCH [Entitic mass] by Automa phil countOrdered By: Celia Griffin on 04-08-2023 MCH (RBC) [Entitic mass] 27.3 pg Low 27.5-35.2 [facility] Comment on above: Order Comment: Reaso n for Exam Acute kidney injury;Chronic kidney disease, stage 3b;Bilater Performed By: #### B 12, MG, PHOS, URIC, [id number], MANDI, CMP, FOL, FE and TIBC #### [address] MCHC Auto (RBC) [Mass/Vol]Or dered By: Celia Griffin on 04-08-2023 MCHC (RBC) [Mass/Vol] 32.6 g/dL 32.5-35.6 [facility] MCV [Entitic volume] by Auto mated countOrdered By: Celia Griffin on 04-08-2023 MCV (RBC) [Entitic vol] 83.8 fL Normal 83.5-101 F [facility] Comment on above: Order Comment: Reaso n for Exam Acute kidney injury;Chronic kidney disease, stage 3b;Bilater Performed By: #### B 12, MG, PHOS, URIC, [id number], MANDI, CMP, FOL, FE and TIBC #### [facility] [address] Magnesium [Mass/volume] in S marium or PlasmaOrdered By: Celia Griffin on 04-08-2023 Magnesium [Mass/Vol] 2.2 mg/dL Normal 1.9-2.7 [facility] Comment on above: Order Comment: Reaso n for Exam Acute kidney injury;Chronic kidney disease, stage 3b;Bilater Performed By: #### B 12, MG, PHOS, URIC, [id number], MANDI, CMP, FOL, FE and TIBC #### [facility] [address] Nitrite Test strip Ql (U)Ord ered By: Celia Griffin on 04-08-2023 Nitrite Ql (U) Positive Negative [facility] No Panel InformationOrdered By: Celia Griffin on 04-08-2023 Estimated GFR (CKD-EPI) 50.692 mL/Min [facility] Creatinine Clearance (Chem N/A [facility] Parathyrin.intact [Mass/volu me] in Serum or PlasmaOrdered By: Celia Griffin on 04-08-2023 Parathyrin.intact [Mass/Vol] 76.6 pg/mL [facility] Parathyroid Hormone Intacton 04-08-2023 Parathyroid Hormone Intact 76.6 pg/mL Normal [facility] Comment on above: Order Comment: Reaso n for Exam Acute kidney injury;Chronic kidney disease, stage 3b;Bilater Result Comment: PERF ORMED BY: [facility] [address] [place] [address] PATHOLOGIST ANALYTICAL DATA SCIENTIST OREN OWEN M.D. Performed By: #### B 12, MG, PHOS, URIC, [id number], MANDI, CMP, FOL, FE and TIBC #### [facility] [address] Phosphate [Mass/volume] in S marium or PlasmaOrdered By: Celia Griffin on 04-08-2023 Phosphate [Mass/Vol] 2.8 mg/dL Normal 2.5-4.5 [facility] Comment on above: Order Comment: Reaso n for Exam Acute kidney injury;Chronic kidney disease, stage 3b;Bilater Performed By: #### B 12, MG, PHOS, URIC, [id number], MANDI, CMP, FOL, FE and TIBC #### [facility] [address] [place] [address] [place] Platelet mean volume [Entiti c volume] in Blood by Automated countOrdered By: Celia Griffin on 04-08-2023 Platelet mean volume (Bld) [Entitic vol] 8.6 fL Normal 6.6-10.1 [facility] Comment on above: Order Comment: Reaso n for Exam Acute kidney injury;Chronic kidney disease, stage 3b;Bilater Result Comment: PERF ORMED BY: [place] [address] PATHOLOGIST ANALYTICAL DATA SCIENTIST OREN OWEN M.D. Performed By: #### B 12, MG, PHOS, URIC, [id number], MANDI, CMP, FOL, FE and TIBC #### [facility] [address] [place] [address] [place] Platelets [#/volume] in Bloo d by Automated countOrdered By: Celia Griffin on 04-08-2023 Platelets (Bld) [#/Vol] 201 10*3/uL Normal 150-450 [facility] Comment on above: Order Comment: Reaso n for Exam Acute kidney injury;Chronic kidney disease, stage 3b;Bilater Performed By: #### B 12, MG, PHOS, URIC, [id number], MANDI, CMP, FOL, FE and TIBC #### [facility] [address] [place] [address] [place] Potassium [Moles/volume] in Serum or PlasmaOrdered By: Celia Griffin on 04-08-2023 Potassium [Moles/Vol] 4.5 mmol/L Normal 3.5-5.1 [facility] Comment on above: Order Comment: Reaso n for Exam Acute kidney injury;Chronic kidney disease, stage 3b;Bilater Performed By: #### B 12, MG, PHOS, URIC, [id number], MANDI, CMP, FOL, FE and TIBC #### [facility] [address] [place] [address] [place] Protein Auto test strip (U) [Mass/Vol]Ordered By: Celia Griffin on 04-08-2023 Protein (U) [Mass/Vol] Trace mg/dL Negative [facility] Protein Creat Ratio Ur Rando mon 04-08-2023 Creatinine, Urine (Random) 90.0 mg/dL High 14.0-26.0 [facility] Comment on above: Order Comment: Reaso n for Exam Acute kidney injury;Chronic kidney disease, stage 3b;Bilater Performed By: #### B 12, MG, PHOS, URIC, [id number], MANDI, CMP, FOL, FE and TIBC #### [facility] [address] Urine Protein/Creatinine Ratio 333 mg/g{Cre} High 0-200 [facility] Comment on above: Order Comment: Reaso n for Exam Acute kidney injury;Chronic kidney disease, stage 3b;Bilater Result Comment: PERF ORMED BY: [place] [address] PATHOLOGIST ANALYTICAL DATA SCIENTIST OREN OWNE M.D. Performed By: #### B 12, MG, PHOS, URIC, [id number], MANDI, CMP, FOL, FE and TIBC #### [facility] [address] [place] [id number] [place] Protein [Mass/volume] in Ser um or PlasmaOrdered By: Celia Griffin on 04-08-2023 Protein [Mass/Vol] 7.0 g/dL Normal 6.4-8.9 [facility] Comment on above: Order Comment: Reaso n for Exam Acute kidney injury;Chronic kidney disease, stage 3b;Bilater Performed By: #### B 12, MG, PHOS, URIC, [id number], MANDI, CMP, FOL, FE and TIBC #### [facility] [address] [place] [id number] [place] Protein [Mass/volume] in Uri neOrdered By: Celia Griffin on 04-08-2023 Protein (U) [Mass/Vol] 30 mg/dL High 0-9 [facility] Comment on above: Order Comment: Reaso n for Exam Acute kidney injury;Chronic kidney disease, stage 3b;Bilater Performed By: #### B 12, MG, PHOS, URIC, [id number], MANDI, CMP, FOL, FE and TIBC #### [facility] [address] Serum globulin measurement b y calculation (mass/volume)Ordered By: Celia Griffin on 04-08-2023 Globulin (S) [Mass/Vol] 2.8 g/dL Normal [facility] Comment on above: Order Comment: Reaso n for Exam Acute kidney injury;Chronic kidney disease, stage 3b;Bilater Performed By: #### B 12, MG, PHOS, URIC, [id number], MANDI, CMP, FOL, FE and TIBC #### [facility] [address] Serum or plasma albumin/glob ulin mass ratioOrdered By: Celia Griffin on 04-08-2023 Albumin/Globulin [Mass ratio] 1.5 {ratio} [facility] Comment on above: Order Comment: Reaso n for Exam Acute kidney injury;Chronic kidney disease, stage 3b;Bilater Performed By: #### B 12, MG, PHOS, URIC, [id number], MANDI, CMP, FOL, FE and TIBC #### [facility] [address] Serum or plasma anion gap de terminationOrdered By: Celia Griffin on 04-08-2023 Anion gap [Moles/Vol] 8.9 mmol/L Normal 6.0-15.0 [facility] Comment on above: Order Comment: Reaso n for Exam Acute kidney injury;Chronic kidney disease, stage 3b;Bilater Performed By: #### B 12, MG, PHOS, URIC, [id number], MANDI, CMP, FOL, FE and TIBC #### [facility] [address] [place] [id number] [facility] Serum or plasma high density lipoprotein (HDL) cholesterol measurementOrdered By: Teo Stokes on 04-08-2023 Cholesterol in HDL [Mass/Vol] 34 mg/dL Normal 23-92 [facility] Comment on above: HDL CHOL ATP-III CLA SSIFICATION Cardiovascular RiskHDL > or equal to 60 mg/dL LOWHDL < 40 mg/dL HIGH Result Comment: HDL CHOL ATP-III CLASSIFICATION Cardiovascular Risk HDL > or equal to 60 mg/dL LOW HDL < 40 mg/dL HIGH Performed By: #### B 12, MG, PHOS, URIC, [id number], MANDI, CMP, FOL, FE and TIBC #### [facility] [address] Serum or plasma total choles terol/high density lipoprotein (HDL) cholesterol mass ratOrdered By: Teo Stokes on 04-08-2023 Cholesterol.total/Sonya sterol in HDL [Mass ratio] 3.1 {ratio} Normal <5.0 [facility] Comment on above: Result Comment: PERF ORMED BY: [place] [address] PATHOLOGIST ANALYTICAL DATA SCIENTIST OREN OWEN M.D. Performed By: #### B 12, MG, PHOS, URIC, [id number], MANDI, CMP, FOL, FE and TIBC #### [address] Sodium [Moles/volume] in Ser um or PlasmaOrdered By: Celia Griffin on 04-08-2023 Sodium [Moles/Vol] 143 mmol/L Normal 136-145 [facility] Comment on above: Order Comment: Reaso n for Exam Acute kidney injury;Chronic kidney disease, stage 3b;Bilater Performed By: #### B 12, MG, PHOS, URIC, [id number], MANDI, CMP, FOL, FE and TIBC #### [facility] [address] [place] [address] Specific gravity Auto test s trip (U) [Rel density]Ordered By: Celia Griffin on 04-08-2023 Specific gravity (U) [Rel density] 1.017 1.001-1.03 0 [facility] Squamous epithelial cells de tection in urine sediment by light microscopyOrdered By: Celia Griffin on 04-08-2023 Epithelial cells.squamous LM Ql (Urine sed) 0-1 [HPF] 0-2 [facility] Transferrin [Mass/volume] in Serum or PlasmaOrdered By: Celia Griffin on 04-08-2023 Transferrin [Mass/Vol] 264 mg/dL Normal 203-362 [facility] Comment on above: Order Comment: Reaso n for Exam Acute kidney injury;Chronic kidney disease, stage 3b;Bilater Performed By: #### B 12, MG, PHOS, URIC, [id number], MANDI, CMP, FOL, FE and TIBC #### [facility] [address] Triglyceride [Mass/volume] i n Serum or PlasmaOrdered By: Teo Stokes on 04-08-2023 Triglyceride [Mass/Vol] 131 mg/dL 0-149 [facility] Comment on above: TRIG ATP III CLASSIF ICATIONTRIG less than 150 mg/dL NormalTRIG 150-199 mg/dL Borderline highTRIG 200-500 mg/dL High TRIG greater than 500 mg/dL Very highStandard traceable to the Center for Disease Conrtrol and Prevention (CDC) test method. Urate [Mass/volume] in Serum or PlasmaOrdered By: Celia Griffin on 04-08-2023 Urate [Mass/Vol] 6.0 mg/dL Normal 4.4-7.6 [facility] Comment on above: Order Comment: Reaso n for Exam Acute kidney injury;Chronic kidney disease, stage 3b;Bilater Performed By: #### B 12, MG, PHOS, URIC, [id number], MANDI, CMP, FOL, FE and TIBC #### [facility] [address] [place] [address] [place] Urea nitrogen [Mass/volume] in Serum or PlasmaOrdered By: Celia Griffin on 04-08-2023 Urea nitrogen [Mass/Vol] 27 mg/dL High 7-25 [facility] Comment on above: Order Comment: Reaso n for Exam Acute kidney injury;Chronic kidney disease, stage 3b;Bilater Performed By: #### B 12, MG, PHOS, URIC, [id number], MANDI, CMP, FOL, FE and TIBC #### [address] Urine Cultureon 04-08-2023 Bacteria identified Cx Nom (U) ORGANISM: Klebsiella oxytoca (O:KLEOXY) [place] Count >100,000 ORGANISM: Morganella morganii (O:MORMOR) [place] Count >100,000 Aerobic RITESH Charge (NMIC56) SUSCEPTIBILITY [...] RESISTANT TO ALL B-LACTAM DRUGS. PERFORMED BY: [place] [address] PATHOLOGIST ANALYTICAL DATA SCIENTIST OREN OWEN M.D. Normal [facility] Comment on above: Performed By: #### B 12, MG, PHOS, URIC, [id number], MANDI, CMP, FOL, FE and TIBC #### [facility] [address] [place] [address] Urine bacteria detection by automated methodOrdered By: Celia Griffin on 04-08-2023 Bacteria Auto Ql (U) 4+ None Seen [facility] Urine clarity by refractomet ry automatedOrdered By: Celia Griffin on 04-08-2023 Clarity Refractometry automated (U) Cloudy Clear [facility] Urine glucose measurement by automated test strip (mass/volume)Ordered By: Celia Griffin on 04-08-2023 Glucose Auto test strip (U) [Mass/Vol] Normal mg/dL Normal [facility] Urine hemoglobin detection b y automated test stripOrdered By: Celia Griffin on 04-08-2023 Hemoglobin Auto test strip Ql (U) 1+ Negative [facility] Urine leukocyte esterase det ection by automated test stripOrdered By: Celia Griffin on 04-08-2023 Leukocyte esterase Auto test strip Ql (U) 4+ Negative [facility] Urine pH measurement by auto mated test stripOrdered By: Celia Griffin on 04-08-2023 pH (U) 7.0 [pH] Normal 5.0-9.0 [facility] Comment on above: Order Comment: Reaso n for Exam Acute kidney injury;Chronic kidney disease, stage 3b;Bilater Performed By: #### B 12, MG, PHOS, URIC, [id number], MANDI, CMP, FOL, FE and TIBC #### [facility] [address] [place] [id number] [facility] Urine protein/creatinine rat ioOrdered By: Celia Griffin on 04-08-2023 Protein/Creatinine (U) [Ratio] 333 mg/g{Cre} 0-200 [facility] Urobilinogen Auto test strip (U) [Mass/Vol]Ordered By: Wicelestino Griffin on 04-08-2023 Urobilinogen (U) [Mass/Vol] Normal mg/dL Normal [facility] Vitamin B12 ser/plasOrdered By: Wicelestino Griffin on 04-08-2023 Cobalamin (Vitamin B12) [Mass/Vol] 301 pg/mL Normal 180-914 [facility] Comment on above: Order Comment: Reaso n for Exam Acute kidney injury;Chronic kidney disease, stage 3b;Bilater Performed By: #### B 12, MG, PHOS, URIC, [id number], MANDI, CMP, FOL, FE and TIBC #### [facility] [address] [place] [id number] [facility] Vitamin D 25 Hydroxy Totalon 04-08-2023 Vitamin D 25 Hydroxy Total 37.5 ng/mL Normal 30-100 [facility] Comment on above: Order Comment: Reaso n for Exam Acute kidney injury;Chronic kidney disease, stage 3b;Bilater Result Comment: [place] MIN D STATUS 25(OH)VITAMIN D RANGE (ng/mL) Deficient <20 Insufficient 20 to <30 Sufficient 30 to 100 Reference: Sixto MF,Federico NC, Palomo LESLIE, et al. Evaluation,treatment, and prevention of vitamin D deficiency; an Endocrine Society clinical practice guideline. JCEM. 2010; 96(7):1911-30. PERFORMED BY: [place] [address] PATHOLOGIST ANALYTICAL DATA SCIENTIST OREN OWEN M.D. Performed By: #### B 12, MG, PHOS, URIC, [id number], MANDI, CMP, FOL, FE and TIBC #### [facility] [address] [place] [id number] [facility] Vitamin D+Metabolites [Mass/ volume] in Serum or PlasmaOrdered By: Celia Griffin on 04-08-2023 Vitamin D+Metabolites [Mass/Vol] 37.5 ng/mL 30-100 [facility] Comment on above: VITAMIN D STATUS 25( [place])VITAMIN D RANGE (ng/mL) Deficient <20 Insufficient 20 to <30Sufficient 30 to 100Reference: Sixto MF,Federico MATA, Palomo LESLIE, et al. Evaluation,treatment, and prevention of vitamin D deficiency; an Endocrine Society clinical practice guideline. JCEM. 2010; 96(7):1911-30. [facility] Fish and Urine Cyt o ([facility])on 03-18-2023 [facility] Diagnosis Info Invalid Interpretation Code [facility] Comment on above: Result Comment: A:Ur [...] correlated with cytology and cystoscopy results.* CPT 22839, 03412. 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 Electronically signed by : on: 03/18/2023 13:35:55 Performed By: #### 1 [id number] #### [facility] [address] [place] [address] Consent for Procedure/Surger yon 03-12-2023 Consent for Procedure/Surgery [id number]#[id number] Normal [facility] Ambulatory Visit Summaryon 1 Ambulatory Visit [...] Where: [facility] [address], [place] [address]- Medications What How Much When Instructions Unchanged [...] kidney and (more content not included)... Normal [facility] Patient Educationon 03-11-20 Patient Education Urology [...] including vitamins, herbs, eye drops, creams, and gzkb-beb-ukmfslx medicines. ? Any problems you or family [...] tells you to take them. ? Taking vlxe-wzm-kwkkmyo medicines, vitamins, herbs, and supplements. Surgery safety [...] health care (more content not included)... Normal [facility] UroVysion Fish and Urine Cyt o ([facility])on 03-11-2023 [facility] Method of Extraction Bladder Urine Normal [facility] Comment on above: Performed By: #### 1 [id number] #### [facility] [address] [place] [address] [facility] Number of Jars 1 Invalid Interpretation Code [facility] Comment on above: Performed By: #### 1 [id number] #### [facility] [address] [place] [address] [facility] Specimen Bladder Wash Normal [facility] Comment on above: Performed By: #### 1 [id number] #### [facility] [address] [place] [address] [facility] Type of Service Technical Only Normal [facility] Comment on above: Performed By: #### 1 [id number] #### [facility] [address] [place] [address] Urology Office/Clinic Noteon 03-11-2023 Urology Office/Clinic Note [...] of urine, unspecified) Pt presented to [facility] ER on 09/15/22 due to catheter [...] months [facility] [address], [place] [address]- Additional Instructions: Sched cysto/FISH/Cytol/BT check Patient Education Benign Prostatic Hyperplasia I, Dalila Lala , personally scribed for Dr. Jacobs on 03/11/2023 14:20:53. Electronically signed by emma Lala on (more content not included)... Normal [facility] Comment on above: Result Comment: Elec tronically Signed By: Katia JACOBS MD\.br\Date and Time Signed: 03/11/23 14:23 EDT\.br\Electronically Co-Signed By: Dalila Lala\neftali\Date and Time Co-Signed: 03/11/23 14:21 EDT Office [...] Lipid Panel; Status:Active - Retrospective Authorization; Requested for:[id number]; Overweight with body mass index (BMI) of 27 to 27.9 in adult Healthy Weight Tips; Status:Complete - Retrospective Authorization; Done: [id number] Some eating tips that can help you lose weight.; Status:Complete - Retrospective Authorization; Done: [id number] SocHx: Current smoker Start: Aspirin 81 MG Oral Tablet Delayed Release; TAKE 1 TABLET DAILY Tobacco Use Screening; Status:Complete; Done: [id number] You need to stop smoking. Though it is not easy, more than half of all adult smokers have quit. We encourage you to write down all the reasons you should quit smoking and set a quit date for yourself. Ask us how we can help. You may also call 4-606-HYRD-NOW for free resources and assistance.; Status:Complete - Retrospective Authorization; Done: [id number] Tobacco Use Screening; Status:Complete; Done: [id number] Patient Instructions Please bring all medicines, vitamins, [...] negative for complaint. Vitals Vital Signs Recorded: [id number] 09:57AM Heart Rate72, L Radial Wvoeekgk908, LUE, Sitting Mqpmzakis05, LUE, Sitting Height6 ft 2 in Acdfqm751 lb BMI Heirhhpwbd78.35 kg/m2 BSA Calculat (more content not included)... Normal [employer] Tobacco Screening.on 023 Fall risk assessment a) No falls within the last year [facility] [employer] 250 DO Work Phone: Tobacco use status [facility] a) Yes [facility] [employer] 250 DO Work Phone: Tobacco Screening. Yes [facility] 250 DO Work Phone: IntraOperative Documentson 0 01-13-2023 Intra[facility] Documents [id number]#1.00CD:127 [facility] Consent for Procedure/Surger yon 01-07-2023 Consent for Procedure/Surgery [id number]#1.00CD:127 [facility] IntraOper[facility] Documentson 0 01-07-2023 [facility] Documents [id number]#1.00CD:127 [facility] Consent for Treatmenton Consent for Treatment [id number]#1.00CD:127 Normal [facility] UroVysion Fish and Urine Cyt o ([facility])on 12-17-2022 [facility] Diagnosis Info Invalid Interpretation Code [facility] Comment on above: Result Comment: A:Ur [...] correlated with cytology and cystoscopy results.* CPT 36207, 40463. Microscopic Notes - Microscopic Notes - Abnormal cells 9p21 deletions: Abnormal cells aneploid events: Total cells analyzed: 101 Hematuria: Gross Description Site ID:A color No Color fixative Alcohol Received 60 mls of clear no color fluid with the patient's name and, Urine on the vial. Electronically signed by : on: 12/17/2022 09:12:29 Performed By: #### 1 [id number] ####[facility] [address] [place] [address] Urology Office/Clinic Noteon 12-16-2022 Urology Office/Clinic Note [...] of urine, unspecified) Pt presented to [facility] ER on 09/15/22 due to catheter [...] [facility] [address], [place] [address]- Additional Instructions: Follow up after urodynamics for [...] emphysema Dem (more content not included)... Normal [facility] Comment on above: Result Comment: Elec tronically Signed By: Dana Rivas\Date and Time Signed: 12/16/22 11:30 EDT Consent for Procedure/Surger yon 12-11-2022 Consent for Procedure/Surgery [id number]#1.00CD:127 Normal [facility] Ambulatory Visit Summaryon 0 12-10-2022 Ambulatory [...] ADRIA When: Where: [facility] [address] , [place] [address]- Medications What How Much When Instructions Unchanged [...] r (more content not included)... Normal [facility] Patient Educationon 12-11-19 Patient Education Oncology Cancer [...] if anything looks unusual. Men with a qynyud-wcdw-jvdegl risk for skin cancer may want to see a category specialist (seasonal tax preparer) for an annual body check. What are the benefits of screening? Cancer screening is done to look for cancer in the very early stages, before it spreads and becomes harder to treat and before you would start to notice symptoms. Finding cancer early improves the chances of successful treatment. It ma (more content not included)... Normal [facility] UroVysion Fish and Urine Cyt o ([facility])on 12-10-2022 [facility] Method of Extraction Bladder Wash Normal [facility] Comment on above: Performed By: #### 1 [id number] ####[facility] [address] [place] [address] [facility] Number of Jars 1 Invalid Interpretation Code [facility] Comment on above: Performed By: #### 1 [id number] ####[facility] [address] [place] [address] [facility] Specimen Urine Normal [facility] Comment on above: Performed By: #### 1 [id number] ####[facility] [address] [place] [address] [facility] Type of Service Technical Only Normal [facility] Comment on above: Performed By: #### 1 [id number] ####[facility] [address] [place] [address] CULTURE URINEon 09-18-2022 CULTURE URINE Isolate 1 Pseudomonas aeruginosa >100,000 cfu/mL of ORGANISM 1 Pseudomonas aeruginosa ANTIBIOTIC M.I.C RX STATUS Piperacillin/Tazobactam <=4 S F Ceftazidime <=1 S F Imipenem 2 S F Amikacin <=2 S F Gentamicin 2 S F Tobramycin <=1 S F Ciprofloxacin <=0.25 S F Levofloxacin <=0.12 S F Normal [facility] Comment on above: Performed By: #### U RTPCR #### [facility] [address] [place] [address] Dr. Karen Pierce CALCULI, URINARYon 3 2,8 Dihydroxyadenine Normal [facility] Comment on above: Performed By: #### U A #### [facility] [address] [place] [address] Dr. Karen Pierce Ammonium Acid Urate Normal [facility] Comment on above: Performed By: #### U A #### [facility] [address] [place] [address] Dr. Karen Pierce Bilirubin Ql (U) Normal [facility] Comment on above: Performed By: #### U A #### [facility] [address] [place] [address] Dr. Karen Pierce Ca Oxalate Dihydrate [facility] Comment on above: Performed By: #### U A #### [facility] [address] [address] [address] Karen Pierce CaHPO4 ([place]) [facility] Comment on above: Performed By: #### U A #### [facility] [address] [place] [address] Dr. Karen Pierce Calcium Bilirubinate [facility] Comment on above: Performed By: #### U A #### [facility] [address] [place] [address] Dr. Karen Pierce Calcium Carbonate [facility] Comment on above: Performed By: #### U A #### [facility] [address] [place] [address] Dr. Karen Pierce Calcium Oxalate Monohydrate 100 % [facility] Comment on above: Performed By: #### U A #### [facility] [address] [place] [address] Dr. Karen Pierce Calcium Palmitate [facility] Comment on above: Performed By: #### U A #### [facility] [address] [place] [address] Dr. Karen Pierce Calcium Phosphate [facility] Comment on above: Performed By: #### U A #### [facility] [address] [place] [address] Dr. Karen Pierce Calcium Stearate [facility] Comment on above: Performed By: #### U A #### [facility] [address] [place] [address] Dr. Karen Pierce Carbonate Apatite [facility] Comment on above: Performed By: #### U A #### [facility] [address] [place] [address] Dr. Karen Pierce Cellular Material [facility] Comment on above: Performed By: #### U A #### [facility] [address] [address] [address] Karen Pierce Cholesterol [facility] Comment on above: Performed By: #### U A #### [facility] [address] [place] [address] Dr. Karen Pierce Color (U) Brown Normal [facility] Comment on above: Performed By: #### U A #### [facility] [address] [address] [address] Karen Pierce Comment Normal [facility] Comment on above: Performed By: #### U A #### [facility] [address] [address] [address] Karen Pierce Comment: Comment Normal [facility] Comment on above: Result Comment: Hyacinth rhodes questions regarding Calculi Analysis contact [facility] at: [phone]. Performed By: #### U A #### [facility] [address] [place] [address] Dr. Karen Pierce Composition Comment [facility] Comment on above: Result Comment: Perc entage (Represents the % composition) Performed By: #### U A #### [facility] [address] [place] [address] Dr. Karen Pierce Cystine Normal [facility] Comment on above: Performed By: #### U A #### [facility] [address] [place] [address] Dr. Karen Pierce Disclaimer: Comment Normal [facility] Comment on above: Result Comment: This test was developed and its performance characteristics determined by [facility]. It has not been cleared or approved by the Food and Drug Administration. Performed By: #### U A #### [facility] [address] [address] [address] Karen Pierce Dried Blood [facility] Comment on above: Performed By: #### U A #### [facility] [address] [place] [address] Dr. Karen Pierce Drug or Metabolite Normal [facility] Comment on above: Performed By: #### U A #### [facility] [address] [place] [address] Dr. Karen Pierce Hydroxyapatite Normal [facility] Comment on above: Performed By: #### U A #### [facility] [address] [place] [address] Dr. Karen Pierce Mg NH4 PO4 (Struvite) [facility] Comment on above: Performed By: #### U A #### [facility] [address] [address] [address] Karen Pierce MgHPO4 (Newberyite) [facility] Comment on above: Performed By: #### U A #### [facility] [address] [place] [address] Dr. Karen Pierce Other component(s) [facility] Comment on above: Performed By: #### U A #### [facility] [address] [place] [address] Dr. Karen Pierce PDF . Normal [facility] Comment on above: Performed By: #### U A #### [facility] [address] [place] [address] Dr. Karen Pierce Photo Comment [facility] Comment on above: Result Comment: Phot ograph will follow under a separate cover Performed By: #### U A #### [facility] [address] [place] [address] Dr. Karen Pierce Please note: Comment Normal [facility] Comment on above: Result Comment: Calc shirley report will follow via computer, mail or homebound teacher delivery. Performed By: #### U A #### [facility] [address] [place] [address] Dr. Karen Pierce Size 5x5 [facility] Comment on above: Result Comment: Mult iple pieces received. Dimensions of the largest piece reported. Performed By: #### U A #### [facility] [address] [place] [address] Dr. Karen Pierce Sodium Acid Urate [facility] Comment on above: Performed By: #### U A #### [facility] [address] [place] [address] Dr. Karen Pierce Source Comment [facility] Comment on above: Result Comment: Urin evelin Bladder Performed By: #### U A #### [facility] [address] [address] [address] Karen Pierce Triamterene [facility] Comment on above: Performed By: #### U A #### [facility] [address] [address] [address] Karen Pierce Uric Acid [facility] Comment on above: Performed By: #### U A #### [facility] [address] [address] [address] Karen Pierce Uric Acid Dihydrate [facility] Comment on above: Performed By: #### U A #### [facility] [address] [place] [address] Dr. Karen Pierce Weight 158 mg [facility] Comment on above: Performed By: #### U A #### [facility] [address] [place] [address] Dr. Karen Pierce Xanthine [facility] Comment on above: Performed By: #### U A #### [facility] [address] [address] [address] Karen Pierce ER URINE PROFILEon 3 Bilirubin Ql (U) Negative Normal NEGATIVE [facility] Comment on above: Performed By: #### U MICRO, ERUR #### [facility] [address] [place] [address] Dr. Karen Pierce Clarity (U) CLEAR Normal CLEAR [facility] Comment on above: Performed By: #### U MICRO, ERUR #### [facility] [address] [address] [address] Karen Pierce Color (U) YELLOW Normal YELLOW [facility] Comment on above: Performed By: #### U MICRO, ERUR #### [facility] [address] [place] [address] Dr. Karen Pierce ERUAHD A micrscopic examina tion will be performed if indicated. [facility] Comment on above: Performed By: #### U MICRO, ERUR #### [facility] [address] [address] [address] Karen Pierce Glucose Ql (U) Negative Normal NEGATIVE [facility] Comment on above: Performed By: #### U MICRO, ERUR #### [facility] [address] [place] [address] Dr. Karen Pierce Hemoglobin Ql (U) LARGE Abnormal NEGATIVE [facility] Comment on above: Performed By: #### U MICRO, ERUR #### [facility] [address] [address] [address] Karen Pierce Ketones Ql (U) Negative Normal NEGATIVE [facility] Comment on above: Performed By: #### U MICRO, ERUR #### [facility] [address] [place] [address] Dr. Karen Pierce LEUKOCYTES LARGE Abnormal NEGATIVE [facility] Comment on above: Performed By: #### U MICRO, ERUR #### [facility] [address] [place] [address] Dr. Karen Pierce Nitrite Ql (U) Positive Abnormal NEGATIVE [facility] Comment on above: Performed By: #### U MICRO, ERUR #### [facility] [address] [place] [address] Dr. Karen Pierce pH (U) 5.5 [pH] Normal 5-9 [facility] Comment on above: Performed By: #### U MICRO, ERUR #### [facility] [address] [place] [address] Dr. Karen Pierce Protein (U) [Mass/Vol] 100 mg/dL Abnormal NEGAT RAJI/ TRACE [facility] Comment on above: Performed By: #### U MICRO, ERUR #### [facility] [address] [place] [address] Dr. Karen Pierce SPEC GRAVITY 1.020 Normal 1.005-<=1. 025 [facility] Comment on above: Performed By: #### U MICRO, ERUR #### [facility] [address] [place] [address] Dr. Karen Pierce UR MICRO IND INDICATED Normal [facility] Comment on above: Performed By: #### U MICRO, ERUR #### [facility] [address] [place] [address] Dr. Karen Pierce Urobilinogen Qn (U) 1.0 {Tonio'U}/dL Normal 0.2 - 1. 0 [facility] Comment on above: Performed By: #### U MICRO, ERUR #### [facility] [address] [place] [address] Dr. Karen Pierce URINE MICROSCOPIC ONLYon BACTERIA SMALL Abnormal NONE SEEN [facility] Comment on above: Performed By: #### U MICRO, ERUR #### [facility] [address] [place] [address] Dr. Karen Pierce Bacteria identified Cx Nom (U) INDICATED Normal [facility] Comment on above: Performed By: #### U MICRO, ERUR #### [facility] [address] [place] [address] Dr. Karen Pierce CAST NONE SEEN Normal NONE SEEN [facility] Comment on above: Performed By: #### U MICRO, ERUR #### [facility] [address] [place] [address] Dr. Karen Pierce Crystals LM Nom (Urine sed) NONE SEEN Normal NONE SEEN [facility] Comment on above: Performed By: #### U MICRO, ERUR #### [facility] [address] [place] [address] Dr. Karen Pierce Epithelial cells LM Ql (Urine sed) NONE SEEN Normal NONE SEEN /RARE [facility] Comment on above: Performed By: #### U MICRO, ERUR #### [facility] [address] [place] [address] Dr. Karen Pierce MUCOUS NONE SEEN Normal NONE SEEN [facility] Comment on above: Performed By: #### U MICRO, ERUR #### [facility] [address] [place] [address] Dr. Karen Pierce RBC (U) [#/Vol] /uL Abnormal 0-2 [facility] Comment on above: Performed By: #### U MICRO, ERUR #### [facility] [address] [place] [address] Dr. Karen Pierce WBC 50-75 Abnormal NONE SEEN [facility] Comment on above: Performed By: #### U MICRO, ERUR #### [facility] [address] [place] [address] Dr. Karen Pierce PTH INTACTon 09-05-2022 PTH, Intact 38 pg/mL Normal 15-65 [facility] Comment on above: Performed By: #### P THINT #### [facility] [address] [place] [address] Dr. Karen Pierce FERRITINon 09-04-2022 Ferritin [Mass/Vol] 49.0 ng/mL Normal 26.0-388.0 [facility] Comment on above: Performed By: #### U RTPCR #### [facility] [address] [place] [address] Dr. Karen Pierce IRON AND TIBCon 09-04-2022 % SATURATION 10.3 % Normal [facility] Comment on above: Performed By: #### U RTPCR #### [facility] [address] [place] [address] Dr. Karen Pierce Iron [Mass/Vol] 33.0 ug/dL Critically low 65.0-175.0 [facility] Comment on above: Performed By: #### U RTPCR #### [facility] [address] [place] [address] Dr. Karen Pierce TIBC DIRECT 319.0 ug/dL Normal 250.0-450. 0 [facility] Comment on above: Performed By: #### U RTPCR #### [facility] [address] [place] [address] Dr. Karen Pierce UA RANDOMon 09-04-2022 Bilirubin Ql (U) Negative Normal NEGATIVE [facility] Comment on above: Performed By: #### U A #### [facility] [address] [place] [address] Dr. Kaern Pierce Clarity (U) CLEAR Normal CLEAR [facility] Comment on above: Performed By: #### U A #### [facility] [address] [place] [address] Dr. Karen Pierce Color (U) LT. YELLOW Normal YELLOW [facility] Comment on above: Performed By: #### U A #### [facility] [address] [place] [address] Dr. Karen Pierce Glucose Ql (U) Negative Normal NEGATIVE [facility] Comment on above: Performed By: #### U A #### [facility] [address] [place] [address] Dr. Karen Pierce Hemoglobin Ql (U) MODERATE Abnormal NEGATIVE [facility] Comment on above: Performed By: #### U A #### [facility] [address] [place] [address] Dr. Karen Pierce Ketones Ql (U) Negative Normal NEGATIVE [facility] Comment on above: Performed By: #### U A #### [facility] [address] [place] [address] Dr. Karen Pierce LEUKOCYTES LARGE Abnormal NEGATIVE [facility] Comment on above: Performed By: #### U A #### [facility] [address] [place] [address] Dr. Karen Pierce Nitrite Ql (U) Positive Abnormal NEGATIVE [facility] Comment on above: Performed By: #### U A #### [facility] [address] [place] [address] Dr. Karen Pierce pH (U) 6.5 [pH] Normal 5-9 [facility] Comment on above: Performed By: #### U A #### [facility] [address] [place] [address] Dr. Karen Pierce SPEC GRAVITY 1.015 Normal 1.005-<=1. 025 [facility] Comment on above: Performed By: #### U A #### [facility] [address] [place] [address] Dr. Karen Pierce UA PROTEIN 30 mg/dl Abnormal NEGATIVE/ TRACE [facility] Comment on above: Performed By: #### U A #### [facility] [address] [place] [address] Dr. Karen Pierce Urobilinogen Qn (U) 0.2 {Tonio'U}/dL Normal 0.2 - 1. 0 [facility] Comment on above: Performed By: #### U A #### [facility] [address] [place] [address] Dr. Karen Piecre URINE T PROTEIN CREAT RATIOo n 09-04-2022 Protein (U) [Mass/Vol] 65.2 mg/dL Critically high <=12.0 [facility] Comment on above: Performed By: #### U RTPCR #### [facility] [address] [place] [address] Dr. Karen Pierce UR PROT CREAT RAT 0.76 Normal [facility] Comment on above: Performed By: #### U RTPCR #### [facility] [address] [place] [address] Dr. Karen Pierce URINE CREAT 85.95 mg/dL Normal 20.00-300. 00 [facility] Comment on above: Performed By: #### U RTPCR #### [facility] [address] [place] [address] Dr. Karen Pierce VIT B12 AND FOLATEon 023 Cobalamin (Vitamin B12) [Mass/Vol] 279.0 pg/mL Normal 193.0-986. 0 [facility] Comment on above: Performed By: #### U RTPCR #### [facility] [address] [place] [address] Dr. Karen Pierce FOLATE 17.80 ng/mL Normal 8.60-58.90 [facility] Comment on above: Performed By: #### U RTPCR #### [facility] [address] [place] [address] Dr. Karen Pierce VITAMIN D 25 OHon 09-04-2022 VIT D 25-OH 29.9 ng/mL Normal [facility] Comment on above: Performed By: #### U RTPCR #### [facility] [address] [place] [address] Dr. Karen Pierce VIT D RANGES SEE BELOW Normal [facility] Comment on above: Result Comment: <20 ng/mL Vit D deficient 20 - <30 ng/mL Vit D insufficient 30 - 100 ng/mL Vit D sufficient >100 ng/mL Potential Toxicity Performed By: #### U RTPCR #### [facility] [address] [address] [address] Karen Pierce CBC AUTO DIFFon 09-02-2022 BASO # 0.1 103/ul Normal 0.0-0.1 [facility] Comment on above: Performed By: #### C BC #### [facility] [address] [place] [address] Dr. Karen Pierce Basophils/100 WBC (Bld) 0.7 % Normal 0.2-2.0 [facility] Comment on above: Performed By: #### C BC #### [facility] [address] [place] [address] Dr. Karen Pierce EO # 0.2 103/ul Normal 0.0-0.7 [facility] Comment on above: Performed By: #### C BC #### [facility] [address] [place] [address] Dr. Karen Pierce Eosinophils/100 WBC (Bld) 2.6 % Normal 0.9-7.0 [facility] Comment on above: Performed By: #### C BC #### [facility] [address] [place] [address] Dr. Karen Pierce Erythrocyte distribution width (RBC) [Ratio] 13.8 % Normal 11.0-15.0 [facility] Comment on above: Performed By: #### C BC #### [facility] [address] [place] [address] Dr. Karen Pierce Hematocrit (Bld) [Volume fraction] 38.9 % Critically low 42.0-54.0 [facility] Comment on above: Performed By: #### C BC #### [facility] [address] [place] [address] Dr. Karen Pierce Hemoglobin (Bld) [Mass/Vol] 12.3 g/dL Critically low 14.0-18.0 [facility] Comment on above: Performed By: #### C BC #### [facility] [address] [place] [address] Dr. Karen Pierce IG # 0.01 10e3/ul Normal 0.00-0.03 [facility] Comment on above: Performed By: #### C BC #### [facility] [address] [place] [address] Dr. Karen Pierce IG % 0.1 % Normal 0.0-0.5 [facility] Comment on above: Performed By: #### C BC #### [facility] [address] [place] [address] Dr. Karen Pierce LYMPH # 1.9 103/ul Normal 1.2-3.8 [facility] Comment on above: Performed By: #### C BC #### [facility] [address] [place] [address] Dr. Karen Pierce Lymphocytes/100 WBC (Bld) 27.0 % Normal 20.5-60.0 [facility] Comment on above: Performed By: #### C BC #### [facility] [address] [place] [address] Dr. Karen Pierce MANUAL DIFF REQ NO Normal [facility] Comment on above: Performed By: #### C BC #### [facility] [address] [place] [address] Dr. Karen Pierce MCH (RBC) [Entitic mass] 27.8 pg Normal 25.9-34.0 [facility] Comment on above: Performed By: #### C BC #### [facility] [address] [place] [address] Dr. Karen Pierce MCHC (RBC) [Mass/Vol] 31.6 g/dL Normal 29.9-35.2 [facility] Comment on above: Performed By: #### C BC #### [facility] [address] [place] [address] Dr. Karen Pierce MCV (RBC) [Entitic vol] 87.8 fL Normal 80.0-94.0 [facility] Comment on above: Performed By: #### C BC #### [facility] [address] [place] [address] Dr. Karen Pierce MONO # 0.6 103/ul Normal 0.3-0.8 [facility] Comment on above: Performed By: #### C BC #### [facility] [address] [place] [address] Dr. Karen Pierce Monocytes/100 WBC (Bld) 8.8 % Normal 1.7-12.0 [facility] Comment on above: Performed By: #### C BC #### [facility] [address] [place] [address] Dr. Karen Pierce NEUT # 4.4 103/ul Normal 1.4-6.5 [facility] Comment on above: Performed By: #### C BC #### [facility] [address] [place] [address] Dr. Karen Pierce Neutrophils/100 WBC (Bld) 60.8 % Normal 43.0-75.0 [facility] Comment on above: Performed By: #### C BC #### [facility] [address] [place] [address] Dr. Karen Pierce Platelet mean volume (Bld) [Entitic vol] 9.9 fL Normal 9.5-13.5 [facility] Comment on above: Performed By: #### C BC #### [facility] [address] [place] [address] Dr. Karen Pierce PLT 181 103/ul Normal 150-450 [facility] Comment on above: Performed By: #### C BC #### [facility] [address] [place] [address] Dr. Karen Pierce RBC 4.43 106/ul Critically low 4.70-6.10 [facility] Comment on above: Performed By: #### C BC #### [facility] [address] [place] [address] Dr. Karen Pierce WBC 7.2 103/ul Normal 4.0-11.0 [facility] Comment on above: Performed By: #### C BC #### [facility] [address] [place] [address] Dr. Karen Pierce MAGNESIUMon 09-02-2022 Magnesium [Mass/Vol] 2.2 mg/dL Normal 1.8-2.4 [facility] Comment on above: Performed By: #### U A #### [facility] [address] [place] [address] Dr. Karen Pierce PHOSPHORUSon 09-02-2022 Phosphate [Mass/Vol] 2.9 mg/dL Normal 2.6-4.7 [facility] Comment on above: Performed By: #### U A #### [facility] [facility] [address] [place] [address] Dr. Karen Pierce PROF 14(COMP METB)on 023 Albumin [Mass/Vol] 3.5 g/dL Normal 3.4-5.0 [facility] Comment on above: Performed By: #### P THINT #### [facility] [address] [place] [address] Dr. Karen Pierce Albumin/Globulin [Mass ratio] 1.0 {ratio} Normal [facility] Comment on above: Performed By: #### P THINT #### [facility] [address] [place] [address] Dr. Karen Pierce ALP [Catalytic activity/Vol] 86 U/L Normal 46-116 [facility] Comment on above: Performed By: #### P THINT #### [facility] [address] [place] [address] Dr. Karen Pierce ALT [Catalytic activity/Vol] 17 U/L Normal 16-63 [facility] Comment on above: Performed By: #### P THINT #### [facility] [address] [place] [address] Dr. Karen Pierce Anion gap [Moles/Vol] 13.0 mmol/L Normal [facility] Comment on above: Performed By: #### P THINT #### [facility] [address] [place] [address] Dr. Karen Pierce AST [Catalytic activity/Vol] 14 U/L Critically low 15-37 [facility] Comment on above: Performed By: #### P THINT #### [facility] [address] [place] [address] Dr. Karen Pierce Bilirubin [Mass/Vol] 0.3 mg/dL Normal 0.2-1.0 [facility] Comment on above: Performed By: #### P THINT #### [facility] [address] [address] [address] Karen Pierce CO2 [Moles/Vol] 27.6 mmol/L Normal 21.0-32.0 [facility] Comment on above: Performed By: #### P THINT #### [facility] [address] [address] [address] Karen Pierce Creatinine [Mass/Vol] 1.48 mg/dL Critically high 0.70-1.30 [facility] Comment on above: Performed By: #### P THINT #### [facility] [address] [address] [address] Karen Pierce EGFR-AF PAPUA NEW GUINEAN 56 mL/min/1.73m2 Critically low >=60 [facility] Comment on above: Performed By: #### P THINT #### [facility] [address] [address] [address] Karen Pierce EGFR-NON AF PAPUA NEW GUINEAN 46 mL/min/1.73m2 Critically low >=60 [facility] Comment on above: Performed By: #### P THINT #### [facility] [address] [address] [address] Karen Pierce Globulin (S) [Mass/Vol] 3.6 g/dL Normal [facility] Comment on above: Performed By: #### P THINT #### [facility] [address] [place] [address] Dr. Karen Pierce Glucose [Mass/Vol] 105 mg/dL Normal 74-106 [facility] Comment on above: Performed By: #### P THINT #### [facility] [address] [place] [address] Dr. Karen Pierce Protein [Mass/Vol] 7.1 g/dL Normal 6.4-8.2 [facility] Comment on above: Performed By: #### P THINT #### [facility] [address] [place] [address] Dr. Karen Pierce Sodium [Moles/Vol] 142 mmol/L Normal 136-145 [facility] Comment on above: Performed By: #### P THINT #### [facility] [address] [place] [address] Dr. Karen Pierce Urea nitrogen/Creatinine [Mass ratio] 16.2 mg/mg Normal [facility] Comment on above: Performed By: #### P THINT #### [facility] [address] [place] [address] Dr. Karen Pierce PROF CHEM 8 (BAS METB)on Anion gap [Moles/Vol] 11.1 mmol/L Normal [facility] Comment on above: Performed By: #### U A #### [facility] [address] [place] [address] Dr. Karen Pierce Calcium [Mass/Vol] 8.7 mg/dL Normal 8.5-10.1 [facility] Comment on above: Performed By: #### U A #### [facility] [address] [place] [address] Dr. Karen Pierce Performed By: #### P THINT #### [facility] [address] [place] [address] Dr. Karen Pierce Chloride [Moles/Vol] 106 mmol/L Normal 98-107 [facility] Comment on above: Performed By: #### U A #### [facility] [address] [place] [address] Dr. Karen Pierce Performed By: #### P THINT #### [facility] [address] [place] [address] Dr. Karen Pierce CO2 [Moles/Vol] 28.5 mmol/L Normal 21.0-32.0 [facility] Comment on above: Performed By: #### U A #### [facility] [address] [place] [address] Dr. Karen Pierce Creatinine [Mass/Vol] 1.44 mg/dL Critically high 0.70-1.30 [facility] Comment on above: Performed By: #### U A #### [facility] [address] [place] [address] Dr. Karen Pierce EGFR-AF PAPUA NEW GUINEAN 58 mL/min/1.73m2 Critically low >=60 [facility] Comment on above: Performed By: #### U A #### [facility] [address] [address] [address] Karen Pierce EGFR-NON AF PAPUA NEW GUINEAN 47 mL/min/1.73m2 Critically low >=60 [facility] Comment on above: Performed By: #### U A #### [facility] [address] [address] [address] Karen Pierce Glucose [Mass/Vol] 104 mg/dL Normal 74-106 [facility] Comment on above: Performed By: #### U A #### [facility] [address] [place] [address] Dr. Karen Pierce Potassium [Moles/Vol] 4.6 mmol/L Normal 3.5-5.1 [facility] Comment on above: Performed By: #### U A #### [facility] [address] [place] [address] Dr. Karen Pierce Performed By: #### P THINT #### [facility] [address] [place] [address] Dr. Karen Pierce Sodium [Moles/Vol] 141 mmol/L Normal 136-145 [facility] Comment on above: Performed By: #### U A #### [facility] [address] [place] [address] Dr. Karen Pierce Urea nitrogen [Mass/Vol] 24.0 mg/dL Critically high 7.0-18.0 [facility] Comment on above: Performed By: #### U A #### [facility] [address] [place] [address] Dr. Karen Pierce Performed By: #### P THINT #### [facility] [address] [place] [address] Dr. Karen Pierce Urea nitrogen/Creatinine [Mass ratio] 16.7 mg/mg Normal [facility] Comment on above: Performed By: #### U A #### [facility] [address] [place] [address] Dr. Karen Pierce PROTIMEon 09-02-2022 INR Coag (PPP) [Relative time] 1.01 {INR} Normal [facility] Comment on above: Performed By: #### P TT, PT #### [facility] [address] [place] [address] Dr. Karen Pierce INR GUIDELINES SEE BELOW Normal [facility] Comment on above: Result Comment: EMY RED INR: 2.0 - 3.0 CONDITIONS NOT LISTED BELOW 2.5 - 3.5 FOR PROSTHETIC HEART VALVE REPLACEMENT 2.5 - 3.5 RECURRENT THROMBOSIS Performed By: #### P TT, PT #### [facility] [address] [place] [address] Dr. Karen Pierce PT Coag (PPP) [Time] 10.7 s Normal 9.0-11.6 [facility] Comment on above: Performed By: #### P TT, PT #### [facility] [address] [place] [address] Dr. Karen Pierce PTTon 09-02-2022 aPTT Coag (Bld) [Time] 28.2 s Normal 22.3-36.2 [facility] Comment on above: Performed By: #### P TT, PT #### [facility] [address] [place] [address] Dr. Karen Pierce URIC ACID SERUMon 09-02-2022 Urate [Mass/Vol] 4.8 mg/dL Normal 3.5-7.2 [facility] Comment on above: Performed By: #### P THINT #### [facility] [address] [place] [address] Dr. Karen Pierce Creatinine (Bld) [Mass/Vol]O rdered By: Margarito Valentine on 08-16-2022 Creatinine [Mass/Vol] 1.5 mg/dL 0.6-1.3 [facility] Comment on above: ER/ESD physician is notified/shown all ISTAT results.Critical values may be confirmed by laboratory testing ifdeemed necessary by ER attending doctor. Creatinine (Bld) [Mass/Vol]O rdered By: Heather Omalley on 07-24-2022 Creatinine [Mass/Vol] 1.6 mg/dL 0.6-1.3 [facility] Comment on above: ER/ESD physician is notified/shown all ISTAT results.Critical values may be confirmed by laboratory testing ifdeemed necessary by ER attending doctor. No Panel InformationOrdered By: Heather Omalley on 07-24-2022 POC Estimated GFR 51 [facility] Comment on above: GFR estimated refere nce range: According to KDOQI guidelines, <60 ml/min/1.73m2 is sufficient to diagnose a patient with chronic kidney disease. POC Estimated GFR Non- Amer 42 [facility] Blood activated clotting lacho e by coagulation assayOrdered By: Margarito Valentine on 07-02-2022 ACT Coag (Bld) 215 s 90-139 [facility] Comment on above: Reference Range: 90- 139 (Non-heparinized) Basophils Auto (Bld) [#/Vol] Ordered By: Margarito Valentine on 06-21-2022 Basophils (Bld) [#/Vol] 0.1 10*3/uL 0.0-0.2 [facility] Basophils/100 WBC Auto (Bld) Ordered By: Margarito Valentine on 06-21-2022 Basophils/100 WBC (Bld) 0.9 % . F [facility] Creatinine and Glomerular fi ltration rate.predicted panel (S/P/Bld)Ordered By: Margarito Valentine on 06-21-2022 Creatinine [Mass/Vol] 1.24 mg/dL 0.64-1.27 [facility] Eosinophils Auto (Bld) [#/Vo l]Ordered By: Margarito Valentine on 06-21-2022 Eosinophils (Bld) [#/Vol] 0.2 10*3/uL 0.0-0.45 [facility] Eosinophils/100 WBC Auto (Bl d)Ordered By: Margarito Vlaentine on 06-21-2022 Eosinophils/100 WBC (Bld) 2.5 % . [facility] Erythrocyte distribution wid th Auto (RBC) [Ratio]Ordered By: Margarito Valentine on 06-21-2022 Erythrocyte distribution width (RBC) [Ratio] 18.0 % 12.0-14.8 [facility] Estimated glomerular filtrat ion rate (GFR) non- AmericanOrdered By: Margarito Valentine on 06-21-2022 GFR/1.73 sq M.predicted among non-blacks MDRD (S/P/Bld) [Vol rate/Area] 56 mL/Min [facility] Hematocrit Auto (Bld) [Volum e fraction]Ordered By: Margarito Valentine on 06-21-2022 Hematocrit (Bld) [Volume fraction] 37.7 % 38.8-50.0 [facility] Hemoglobin [Mass/volume] in BloodOrdered By: Margarito Valentine on 06-21-2022 Hemoglobin (Bld) [Mass/Vol] 12.3 g/dL 13.0-17.0 [facility] Leukocytes [#/volume] correc phil for nucleated erythrocytes in Blood by Automated counOrdered By: Margarito Valentine on 06-21-2022 WBC corrected for nucl RBC Auto (Bld) [#/Vol] 7.1 10*3/uL 4.1-10.5 [facility] Lymphocytes Auto (Bld) [#/Vo l]Ordered By: Margarito Valentine on 06-21-2022 Lymphocytes (Bld) [#/Vol] 1.3 10*3/uL 1.00-4.8 [facility] Lymphocytes/100 WBC Auto (Bl d)Ordered By: Margarito Valentine on 06-21-2022 Lymphocytes/100 WBC (Bld) 18.7 % . [facility] MCH Auto (RBC) [Entitic mass ]Ordered By: Margarito Valentine on 06-21-2022 MCH (RBC) [Entitic mass] 28.2 pg 27.5-35.2 [facility] MCHC Auto (RBC) [Mass/Vol]Or dered By: Margarito Valentine on 06-21-2022 MCHC (RBC) [Mass/Vol] 32.6 g/dL 32.5-35.6 [facility] MCV Auto (RBC) [Entitic vol] Ordered By: Margarito Valentine on 06-21-2022 MCV (RBC) [Entitic vol] 86.5 fL 83.5-101 [facility] Monocytes Auto (Bld) [#/Vol] Ordered By: Margarito Valentine on 06-21-2022 Monocytes (Bld) [#/Vol] 0.7 10*3/uL 0.0-0.8 [facility] Monocytes/100 WBC Auto (Bld) Ordered By: Margarito Valentine on 06-21-2022 Monocytes/100 WBC (Bld) 10.3 % . [facility] Neutrophils Auto (Bld) [#/Vo l]Ordered By: Margarito Valentine on 06-21-2022 Neutrophils (Bld) [#/Vol] 4.8 10*3/uL 1.8-7.7 [facility] Neutrophils/100 WBC Auto (Bl d)Ordered By: Margarito Valentine on 06-21-2022 Neutrophils/100 WBC (Bld) 67.6 % . [facility] No Panel InformationOrdered By: Margarito Valentine on 06-21-2022 Estimated GFR () > 60 mL/Min [facility] Comment on above: GFR estimated refere nce range: According to KDOQI guidelines, <60 ml/min/1.73m2 is sufficient to diagnose a patient with chronic kidney disease. Pharmacy Creatinine Clearance (Chem N/A [facility] Nucleated erythrocytes [Pres ence] in Blood by Automated countOrdered By: Margarito Valentine on 06-21-2022 Nucleated RBC Auto Ql (Bld) 0.1 /100{WBC} 0-0.5 [facility] Platelet mean volume Auto (B ld) [Entitic vol]Ordered By: Margarito Valentine on 06-21-2022 Platelet mean volume (Bld) [Entitic vol] 8.2 fL 6.6-10.1 [facility] Platelets Auto (Bld) [#/Vol] Ordered By: Margarito Valentine on 06-21-2022 Platelets (Bld) [#/Vol] 149 10*3/uL 150-450 [facility] RBC Auto (Bld) [#/Vol]Ordere d By: Margarito Valentine on 06-21-2022 RBC (Bld) [#/Vol] 4.36 10*6/uL 3.90-5.60 [facility] Serum or plasma anion gap de terminationOrdered By: Margarito Valentine on 06-21-2022 Anion gap [Moles/Vol] 10.8 mmol/L 6.0-15.0 [facility] Serum or plasma calcium elan urement (mass/volume)Ordered By: Margarito Valentine on 06-21-2022 Calcium [Mass/Vol] 8.8 mg/dL 8.2-10.2 [facility] Serum or plasma chloride herb surement (moles/volume)Ordered By: Margarito Valentine on 06-21-2022 Chloride [Moles/Vol] 107 mmol/L 95-114 [facility] Serum or plasma glucose elan urement (mass/volume)Ordered By: Margarito Valentine on 06-21-2022 Glucose [Mass/Vol] 103 mg/dL 70-100 [facility] Comment on above: ADA recommended refe rence rangeRandom Glucose Reference Range is dependent on time and content of last meal. Glucose of more than 200 mg/dL in a nonstressed, ambulatory subject supports the diagnosis of Diabetes Mellitus. Serum or plasma potassium me asurement (moles/volume)Ordered By: Margarito Valentine on 06-21-2022 Potassium [Moles/Vol] 4.2 mmol/L 3.5-5.1 [facility] Serum or plasma sodium measu rement (moles/volume)Ordered By: Margarito Valentine on 06-21-2022 Sodium [Moles/Vol] 138 mmol/L 136-146 [facility] Serum or plasma total carbon dioxide measurement (moles/volume)Ordered By: Margarito Valentine on 06-21-2022 CO2 [Moles/Vol] 24.4 mmol/L 22.0-30.0 [facility] Serum or plasma urea nitroge n measurement (mass/volume)Ordered By: Margarito Valentine on 06-21-2022 Urea nitrogen [Mass/Vol] 18 mg/dL 9-23 [facility] WBC Auto (Bld) [#/Vol]Ordere d By: Margarito Valentine on 06-21-2022 WBC (Bld) [#/Vol] 7.1 10*3/uL 4.1-10.5 [facility] Office Visit (Cardiology)on 06-03-2022 Follow-up visit [...] Complaint ALEX ANDERSON is being [facility] for [facility] p[facility]/ekg. 76-year-old white male who I saw [...] Signs Recorded: 03Jun2022 03:38PM Heart Rate71, Apical Vhoukext632, LUE, Sitting Dlueuioyy57, LUE, Sitting Height6 ft 2 in Qahfcq839 lb BMI Bdickllbio21.45 kg/m2 BSA Calculated2.2 Tobacco Useb) No PHQ-2 [...] , regular (more content not included)... Normal [employer] Tobacco Screening.on 023 Adult depression screening assessment No [facility]Sandu sushil 250 DO Work Phone: Fall risk assessment a) No falls within the last year [facility] sushil 250 DO Work Phone: Tobacco use status [facility] b) No [facility]u sushil 250 DO Work Phone: Basophils Auto (Bld) [#/Vol] Ordered By: Bernabe Cr on 05-22-2022 Basophils (Bld) [#/Vol] 0.1 10*3/uL 0.0-0.2 [facility] Basophils/100 WBC Auto (Bld) Ordered By: Bernabe Cr on 05-22-2022 Basophils/100 WBC (Bld) 1.2 % . F [facility] Creatinine and Glomerular fi ltration rate.predicted panel (S/P/Bld)Ordered By: Bernabe Cr on 05-22-2022 Creatinine [Mass/Vol] 1.78 mg/dL 0.64-1.27 [facility] Eosinophils Auto (Bld) [#/Vo l]Ordered By: Bernabe Cr on 05-22-2022 Eosinophils (Bld) [#/Vol] 0.3 10*3/uL 0.0-0.45 [facility] Eosinophils/100 WBC Auto (Bl d)Ordered By: Bernabe Cr on 05-22-2022 Eosinophils/100 WBC (Bld) 3.6 % . [facility] Erythrocyte distribution wid th Auto (RBC) [Ratio]Ordered By: Bernabe Cr on 05-22-2022 Erythrocyte distribution width (RBC) [Ratio] 15.3 % 12.0-14.8 [facility] Estimated glomerular filtrat ion rate (GFR) non- AmericanOrdered By: Bernabe Cr on 05-22-2022 GFR/1.73 sq M.predicted among non-blacks MDRD (S/P/Bld) [Vol rate/Area] 37 mL/Min [facility] Hematocrit Auto (Bld) [Volum e fraction]Ordered By: Bernabe Cr on 05-22-2022 Hematocrit (Bld) [Volume fraction] 36.2 % 38.8-50.0 [facility] Hemoglobin [Mass/volume] in BloodOrdered By: Bernabe Cr on 05-22-2022 Hemoglobin (Bld) [Mass/Vol] 11.7 g/dL 13.0-17.0 [facility] Leukocytes [#/volume] correc phil for nucleated erythrocytes in Blood by Automated counOrdered By: Bernabe Cr on 05-22-2022 WBC corrected for nucl RBC Auto (Bld) [#/Vol] 8.1 10*3/uL 4.1-10.5 [facility] Lymphocytes Auto (Bld) [#/Vo l]Ordered By: Bernabe Cr on 05-22-2022 Lymphocytes (Bld) [#/Vol] 1.4 10*3/uL 1.00-4.8 [facility] Lymphocytes/100 WBC Auto (Bl d)Ordered By: Bernabe Cr on 05-22-2022 Lymphocytes/100 WBC (Bld) 16.9 % . [facility] MCH Auto (RBC) [Entitic mass ]Ordered By: Bernabe Cr on 05-22-2022 MCH (RBC) [Entitic mass] 27.4 pg 27.5-35.2 [facility] MCHC Auto (RBC) [Mass/Vol]Or dered By: Bernabe Cr on 05-22-2022 MCHC (RBC) [Mass/Vol] 32.5 g/dL 32.5-35.6 [facility] MCV Auto (RBC) [Entitic vol] Ordered By: Bernabe Cr on 05-22-2022 MCV (RBC) [Entitic vol] 84.3 fL 83.5-101 F [facility] Monocytes Auto (Bld) [#/Vol] Ordered By: Bernabe Cr on 05-22-2022 Monocytes (Bld) [#/Vol] 0.8 10*3/uL 0.0-0.8 [facility] Monocytes/100 WBC Auto (Bld) Ordered By: Bernabe Cr on 05-22-2022 Monocytes/100 WBC (Bld) 10.1 % . [facility] Neutrophils Auto (Bld) [#/Vo l]Ordered By: Bernabe Cr on 05-22-2022 Neutrophils (Bld) [#/Vol] 5.6 10*3/uL 1.8-7.7 [facility] Neutrophils/100 WBC Auto (Bl d)Ordered By: Bernabe Cr on 05-22-2022 Neutrophils/100 WBC (Bld) 68.2 % . [facility] No Panel InformationOrdered By: Bernabe Cr on 05-22-2022 Estimated GFR () 45 mL/Min [facility] Comment on above: GFR estimated refere nce range: According to KDOQI guidelines, <60 ml/min/1.73m2 is sufficient to diagnose a patient with chronic kidney disease. Pharmacy Creatinine Clearance (Chem 39.77 [facility] Nucleated erythrocytes [Pres ence] in Blood by Automated countOrdered By: Bernabe Cr on 05-22-2022 Nucleated RBC Auto Ql (Bld) 0.1 /100{WBC} 0-0.5 [facility] Platelet mean volume Auto (B ld) [Entitic vol]Ordered By: Bernabe Cr on 05-22-2022 Platelet mean volume (Bld) [Entitic vol] 8.7 fL 6.6-10.1 [facility] Platelets Auto (Bld) [#/Vol] Ordered By: Bernabe Cr on 05-22-2022 Platelets (Bld) [#/Vol] 198 10*3/uL 150-450 [facility] RBC Auto (Bld) [#/Vol]Ordere d By: Bernabe Cr on 05-22-2022 RBC (Bld) [#/Vol] 4.29 10*6/uL 3.90-5.60 [facility] Serum or plasma anion gap de terminationOrdered By: Bernabe Cr on 05-22-2022 Anion gap [Moles/Vol] 13.3 mmol/L 6.0-15.0 [facility] Serum or plasma calcium elan urement (mass/volume)Ordered By: Bernabe Cr on 05-22-2022 Calcium [Mass/Vol] 8.3 mg/dL 8.2-10.2 [facility] Serum or plasma chloride herb surement (moles/volume)Ordered By: Bernabe Cr on 05-22-2022 Chloride [Moles/Vol] 104 mmol/L 95-114 [facility] Serum or plasma glucose elan urement (mass/volume)Ordered By: Bernabe Cr on 05-22-2022 Glucose [Mass/Vol] 180 mg/dL 70-100 [facility] Comment on above: ADA recommended refe rence rangeRandom Glucose Reference Range is dependent on time and content of last meal. Glucose of more than 200 mg/dL in a nonstressed, ambulatory subject supports the diagnosis of Diabetes Mellitus. Serum or plasma potassium me asurement (moles/volume)Ordered By: Bernabe Cr on 05-22-2022 Potassium [Moles/Vol] 3.3 mmol/L 3.5-5.1 [facility] Serum or plasma sodium measu rement (moles/volume)Ordered By: Bernabe Cr on 05-22-2022 Sodium [Moles/Vol] 137 mmol/L 136-146 [facility] Serum or plasma total carbon dioxide measurement (moles/volume)Ordered By: Bernabe Cr on 05-22-2022 CO2 [Moles/Vol] 23.0 mmol/L 22.0-30.0 [facility] Serum or plasma urea nitroge n measurement (mass/volume)Ordered By: Bernabe Cr on 05-22-2022 Urea nitrogen [Mass/Vol] 21 mg/dL 9-23 [facility] WBC Auto (Bld) [#/Vol]Ordere d By: Bernabe Williscésar on 05-22-2022 WBC (Bld) [#/Vol] 8.1 10*3/uL 4.1-10.5 [facility] No Panel InformationOrdered By: Bernabe Cr on 05-21-2022 25-Hydroxy Vitamin D Total 15.9 ng/mL 30-100 [facility] Comment on above: VITAMIN D STATUS 25( OH)VITAMIN D RANGE (ng/mL) Deficient <20 Insufficient 20 to <30Sufficient 30 to 100Reference: Sixto MF,Federico MATA, Palomo LESLIE, et al. Evaluation,treatment, and prevention of vitamin D deficiency; an Endocrine Society clinical practice guideline. JCEM. 2010; 96(7):1911-30. Vitamin C level 0.2 mg/dL 0.4-2.0 [facility] Comment on above: This test was develo ped and its performance characteristicsdetermined by [facility]. It has not been cleared orapproved by the Food and Drug Administration.Vitamin C deficiency is generally defined as plasma orserum concentrations less than 0.2 mg/dL and levels between0.2 and 0.4 mg/dL are considered low.Performed at: [address] [id number] Director: Mamadou Rodriguez MD, Phone: [phone] Folate [Mass/volume] in Seru m or PlasmaOrdered By: Taz Barnes on 05-20-2022 Folate [Mass/Vol] 5.5 ng/mL >5.9 [facility] Comment on above: Folate reference ran ge: >5.9 ng/mlThe WHO technical consultation on folate and vitamin [id number] has determined that folate concentrations lessthan 4 ng/ml are considered deficient. Laboratory - Chemistry and C hemistry - challengeOrdered By: Taz Barnes on 05-20-2022 Cobalamin (Vitamin B12) [Mass/Vol] 169 pg/mL 180-914 [facility] No Panel InformationOrdered By: Taz Barnes on 05-20-2022 [facility] Result 1 [facility] [facility] Ova and Parasite Result 1 [facility] Ova or parasites identificat ionOrdered By: Taz Barnes on 05-20-2022 Ova and parasites identified LM Nom (Unsp spec) [facility] Ova and parasites identified LM Nom (Unsp spec) [facility] Laboratory - Chemistry and C hemistry - challengeOrdered By: Janice Gonzalez on 05-19-2022 Magnesium [Mass/Vol] 1.7 mg/dL 1.6-2.6 [facility] Automated erythrocytes count in urine sediment (number/area)Ordered By: Taz Barnes on 05-18-2022 RBC Auto (Urine sed) [#/Area] 50-100 [HPF] 0-4 [facility] Automated leukocytes count i n urine sediment (number/area)Ordered By: Taz Barnes on 05-18-2022 WBC Auto (Urine sed) [#/Area] Innumerable [HPF] 0-4 [facility] Automated urine hyaline cast s count (number/volume)Ordered By: Taz Barnes on 05-18-2022 Hyaline casts Auto (U) [#/Vol] None seen [LPF] 0-1 [facility] Bilirubin Test strip Ql (U)O rdered By: Taz Barnes on 05-18-2022 Bilirubin Ql (U) Negative Negative [facility] Casts typing in urine sedime nt by light microscopyOrdered By: Taz Barnes on 05-18-2022 Casts LM Nom (Urine sed) None seen [LPF] None Seen [facility] Color Auto (U)Ordered By: Starr Barnes on 05-18-2022 Color (U) Yellow Yellow [facility] Ketones Auto test strip (U) [Mass/Vol]Ordered By: Taz Barnes on 05-18-2022 Ketones (U) [Mass/Vol] Negative Negative [facility] Nitrite Test strip Ql (U)Ord ered By: Taz Barnes on 05-18-2022 Nitrite Ql (U) Negative Negative [facility] Protein Auto test strip (U) [Mass/Vol]Ordered By: Taz Barnes on 05-18-2022 Protein (U) [Mass/Vol] 100 mg/dL Negative [facility] Specific gravity Auto test s trip (U) [Rel density]Ordered By: Taz Barnes on 05-18-2022 Specific gravity (U) [Rel density] 1.010 1.001-1.03 0 [facility] Squamous epithelial cells de tection in urine sediment by light microscopyOrdered By: Taz Barnes on 05-18-2022 Epithelial cells.squamous LM Ql (Urine sed) 1-2 [HPF] 0-2 [facility] Urine bacteria detection by automated methodOrdered By: Taz Barnes on 05-18-2022 Bacteria Auto Ql (U) None seen None Seen [facility] Urine clarity by refractomet ry automatedOrdered By: Taz Barnes on 05-18-2022 Clarity Refractometry automated (U) Turbid Clear [facility] Urine culture routineOrdered By: Taz Barnes on 05-18-2022 Bacteria identified Cx Nom (U) No Growth 2 Days [facility] Bacteria identified Cx Nom (U) No Growth 2 Days [facility] Urine glucose measurement by automated test strip (mass/volume)Ordered By: Taz Barnes on 05-18-2022 Glucose Auto test strip (U) [Mass/Vol] Normal mg/dL Normal [facility] Urine hemoglobin detection b y automated test stripOrdered By: Taz Barnes on 05-18-2022 Hemoglobin Auto test strip Ql (U) 2+ Negative [facility] Urine leukocyte esterase det ection by automated test stripOrdered By: Taz Barnes on 05-18-2022 Leukocyte esterase Auto test strip Ql (U) 4+ Negative [facility] Urobilinogen Auto test strip (U) [Mass/Vol]Ordered By: Taz Barnes on 05-18-2022 Urobilinogen (U) [Mass/Vol] Normal mg/dL Normal [facility] Yeast detection in urine sed iment by light microscopyOrdered By: Taz Barnes on 05-18-2022 Yeast LM Ql (Urine sed) None seen [HPF] None Se en [facility] pH Auto test strip (U)Ordere d By: aTz Barnes on 05-18-2022 pH (U) 7.5 [pH] 5.0-9.0 [facility] Activated partial thrombopla stin time (aPTT) in platelet poor plasma by coagulation aOrdered By: Taz Barnes on 05-16-2022 aPTT Coag (PPP) [Time] 29.5 s 25.1-36.5 [facility] Body fluid albumin measureme nt (mass/volume)Ordered By: Taz Barnes on 05-16-2022 Albumin (Body fld) [Mass/Vol] 2.9 g/dL 3.2-5.5 [facility] CBC AUTO DIFFon 05-16-2022 BASO # 0.0 103/ul Normal 0.0-0.1 [facility] Comment on above: Performed By: #### C BC #### [facility] [address] [place] [address] Dr. Karen Pierce Basophils/100 WBC (Bld) 0.3 % Normal 0.2-2.0 [facility] Comment on above: Performed By: #### C BC #### [facility] [address] [place] [address] Dr. Karen Pierce EO # 0.1 103/ul Normal 0.0-0.7 [facility] Comment on above: Performed By: #### C BC #### [facility] [address] [place] [address] Dr. Karen Pierce Eosinophils/100 WBC (Bld) 0.7 % Critically low 0.9-7.0 [facility] Comment on above: Performed By: #### C BC #### [facility] [address] [place] [address] Dr. Karen Pierce Erythrocyte distribution width (RBC) [Ratio] 14.8 % Normal 11.0-15.0 [facility] Comment on above: Performed By: #### C BC #### [facility] [address] [place] [address] Dr. Karen Pierce Hematocrit (Bld) [Volume fraction] 39.4 % Critically low 42.0-54.0 [facility] Comment on above: Performed By: #### C BC #### [facility] [address] [place] [address] Dr. Karen Pierce Hemoglobin (Bld) [Mass/Vol] 12.6 g/dL Critically low 14.0-18.0 [facility] Comment on above: Performed By: #### C BC #### [facility] [address] [place] [address] Dr. Karen Pierce IG # 0.04 10e3/ul Critically high 0.00-0.03 [facility] Comment on above: Performed By: #### C BC #### [facility] [address] [place] [address] Dr. Karen Pierce IG % 0.4 % Normal 0.0-0.5 [facility] Comment on above: Performed By: #### C BC #### [facility] [address] [place] [address] Dr. Karen Pierce LYMPH # 1.2 103/ul Normal 1.2-3.8 [facility] Comment on above: Performed By: #### C BC #### [facility] [address] [place] [address] Dr. Karen Pierce Lymphocytes/100 WBC (Bld) 11.8 % Critically low 20.5-60.0 [facility] Comment on above: Performed By: #### C BC #### [facility] [address] [place] [address] Dr. Karen Pierce MANUAL DIFF REQ NO Normal [facility] Comment on above: Performed By: #### C BC #### [facility] [address] [place] [address] Dr. Karen Pierce MCH (RBC) [Entitic mass] 27.5 pg Normal 25.9-34.0 [facility] Comment on above: Performed By: #### C BC #### [facility] [address] [place] [address] Dr. Karen Pierce MCHC (RBC) [Mass/Vol] 32.0 g/dL Normal 29.9-35.2 [facility] Comment on above: Performed By: #### C BC #### [facility] [address] [address] [address] Karen Pierce MCV (RBC) [Entitic vol] 86.0 fL Normal 80.0-94.0 [facility] Comment on above: Performed By: #### C BC #### [facility] [address] [address] [address] Karen Pierce MONO # 1.4 103/ul Critically high 0.3-0.8 [facility] Comment on above: Performed By: #### C BC #### [facility] [address] [address] [address] Karen Pierce Monocytes/100 WBC (Bld) 13.8 % Critically high 1.7-12. 0 [facility] Comment on above: Performed By: #### C BC #### [facility] [address] [place] [address] Dr. Karen Pierce NEUT # 7.6 103/ul Critically high 1.4-6.5 [facility] Comment on above: Performed By: #### C BC #### [facility] [address] [place] [address] Dr. Karen Pierce Neutrophils/100 WBC (Bld) 73.0 % Normal 43.0-75.0 [facility] Comment on above: Performed By: #### C BC #### [facility] [address] [place] [address] Dr. Karen Pierce Platelet mean volume (Bld) [Entitic vol] 10.6 fL Normal 9.5-13.5 [facility] Comment on above: Performed By: #### C BC #### [facility] [address] [address] [address] Karen Pierce PLT 193 103/ul Normal 150-450 [facility] Comment on above: Performed By: #### C BC #### [facility] [address] [place] [address] Dr. Karen Pierce RBC 4.58 106/ul Critically low 4.70-6.10 [facility] Comment on above: Performed By: #### C BC #### [facility] [address] [place], [place] [address] Dr. Karen Pierce WBC 10.4 103/ul Normal 4.0-11.0 [facility] Comment on above: Performed By: #### C BC #### [facility] [address] [place], [place] [address] ABD/PELVIS WO CONon [...] LORENZO SCHERER Date: 2022-05-16 09:21 Normal [facility] CULTURE URINEon 05-16-2022 CULTURE URINE Culture Observations : MODERATE GROWTH OF MIXED SKIN JAS. NO POTENTIAL PATHOGENS SEEN. Normal [facility] Comment on above: Performed By: #### U RTPCR #### [facility] [address] [place] [address] Dr. Karen Pierce [facility] SARS-CoV-2 (COVID-19) RNA KARI+probe Ql (Unsp spec) Not detected Normal NOT DETECTED [facility] Comment on above: Result Comment: When diagnostic [...] for this test is supported by the [place] of Health and Human Service's declaration that [...] used). Performed By: #### U A #### [facility] [address] [address] [address] Karen Pierce Creatinine [Mass/volume] in UrineOrdered By: Taz Barnes on 05-16-2022 Creatinine (U) [Mass/Vol] 68.1 mg/dL [facility] Comment on above: No reference range e stablished ER URINE PROFILEon 2 Bilirubin Ql (U) Negative Normal NEGATIVE [facility] Comment on above: Performed By: #### U RTPCR #### [facility] [address] [place] [address] Dr. Karen Pierce Clarity (U) CLEAR Normal CLEAR [facility] Comment on above: Performed By: #### U RTPCR #### [facility] [address] [place] [address] Dr. Karen Pierce Color (U) YELLOW Normal YELLOW [facility] Comment on above: Performed By: #### U RTPCR #### [facility] [address] [place] [address] Dr. Karen Pierce ERUAHD A micrscopic examina tion will be performed if indicated. Normal [facility] Comment on above: Performed By: #### U RTPCR #### [facility] [address] [place] [address] Dr. Karen Pierce Glucose Ql (U) Negative Normal NEGATIVE [facility] Comment on above: Performed By: #### U RTPCR #### [facility] [address] [place] [address] Dr. Karen Pierce Hemoglobin Ql (U) MODERATE Abnormal NEGATIVE [facility] Comment on above: Performed By: #### U RTPCR #### [facility] [address] [place] [address] Dr. Karen Pierce Ketones Ql (U) Negative Normal NEGATIVE [facility] Comment on above: Performed By: #### U RTPCR #### [facility] [address] [place] [address] Dr. Karen Pierce LEUKOCYTES LARGE Abnormal NEGATIVE [facility] Comment on above: Performed By: #### U RTPCR #### [facility] [address] [place] [address] Dr. Karen Pierce Nitrite Ql (U) Negative Normal NEGATIVE [facility] Comment on above: Performed By: #### U RTPCR #### [facility] [address] [place] [address] Dr. Karen Pierce pH (U) 5.5 [pH] Normal 5-9 [facility] Comment on above: Performed By: #### U RTPCR #### [facility] [address] [place] [address] Dr. Karen Pierce SPEC GRAVITY <=1.005 Abnormal 1.005-<=1. 025 [facility] Comment on above: Performed By: #### U RTPCR #### [facility] [address] [place] [address] Dr. Karen Pierce UA PROTEIN Negative Normal NEGATIVE/ TRACE [facility] Comment on above: Performed By: #### U RTPCR #### [facility] [address] [place] [address] Dr. Karen Pierce UR MICRO IND INDICATED Normal [facility] Comment on above: Performed By: #### U RTPCR #### [facility] [address] [place] [address] Dr. Karen Pierce Urobilinogen Qn (U) 0.2 {Tonio'U}/dL Normal 0.2 - 1. 0 [facility] Comment on above: Performed By: #### U RTPCR #### [facility] [address] [place] [address] Dr. Karen Pierce Globulin Calc (S) [Mass/Vol] Ordered By: Taz Barnes on 05-16-2022 Globulin (S) [Mass/Vol] 3.5 g/dL [facility] - CoagulationOrde red By: Taz Barnes on 05-16-2022 PT Coag (PPP) [Time] 14.2 s 9.0-12.9 [facility] PROF 14(COMP METB)on 022 Albumin [Mass/Vol] 3.1 g/dL Critically low 3.4-5.0 Th e [facility] Comment on above: Performed By: #### U RTPCR #### [facility] [address] [place] [address] Dr. Karen Pierce Albumin/Globulin [Mass ratio] 0.7 {ratio} Normal [facility] Comment on above: Performed By: #### U RTPCR #### [facility] [address] [place] [address] Dr. Karen Pierce ALP [Catalytic activity/Vol] 96 U/L Normal 46-116 [facility] Comment on above: Performed By: #### U RTPCR #### [facility] [address] [place] [address] Dr. Karen Pierce ALT [Catalytic activity/Vol] 46 U/L Normal 16-63 [facility] Comment on above: Performed By: #### U RTPCR #### [facility] [address] [place] [address] Dr. Karen Pierce Anion gap [Moles/Vol] 19.7 mmol/L Normal [facility] Comment on above: Performed By: #### U RTPCR #### [facility] [address] [place] [address] Dr. Karen Pierce AST [Catalytic activity/Vol] 21 U/L Normal 15-37 [facility] Comment on above: Performed By: #### U RTPCR #### [facility] [address] [place] [address] Dr. Karen Pierce Bilirubin [Mass/Vol] 0.3 mg/dL Normal 0.2-1.0 [facility] Comment on above: Performed By: #### U RTPCR #### [facility] [address] [place] [address] Dr. Karen Pierce Calcium [Mass/Vol] 8.9 mg/dL Normal 8.5-10.1 [facility] Comment on above: Performed By: #### U RTPCR #### [facility] [address] [place] [address] Dr. Karen Pierce Chloride [Moles/Vol] 101 mmol/L Normal 98-107 [facility] Comment on above: Performed By: #### U RTPCR #### [facility] [address] [place] [address] Dr. Karen Pierce CO2 [Moles/Vol] 18.3 mmol/L Critically low 21.0-32.0 [facility] Comment on above: Performed By: #### U RTPCR #### [facility] [address] [address] [address] Karen Pierce Creatinine [Mass/Vol] 8.99 mg/dL Critically high 0.70-1.30 [facility] Comment on above: Performed By: #### U RTPCR #### [facility] [address] [address] [address] Karen Pierce EGFR-AF PAPUA NEW GUINEAN 7 mL/min/1.73m2 Critically low >=60 [facility] Comment on above: Performed By: #### U RTPCR #### [facility] [address] [place] [address] Dr. Karen Pierce EGFR-NON AF PAPUA NEW GUINEAN 6 mL/min/1.73m2 Critically low >=60 [facility] Comment on above: Performed By: #### U RTPCR #### [facility] [address] [place] [address] Dr. Karen Pierce Globulin (S) [Mass/Vol] 4.7 g/dL Normal [facility] Comment on above: Performed By: #### U RTPCR #### [facility] [address] [place] [address] Dr. Karen Pierce Glucose [Mass/Vol] 110 mg/dL Critically high 74-106 [facility] Comment on above: Performed By: #### U RTPCR #### [facility] [address] [address] [address] Karen Pierce Potassium [Moles/Vol] 5.0 mmol/L Normal 3.5-5.1 [facility] Comment on above: Performed By: #### U RTPCR #### [facility] [address] [place] [address] Dr. Karen Pierce Protein [Mass/Vol] 7.8 g/dL Normal 6.4-8.2 [facility] Comment on above: Performed By: #### U RTPCR #### [facility] [address] [place] [address] Dr. Karen Pierce Sodium [Moles/Vol] 134 mmol/L Critically low 136-145 [facility] Comment on above: Performed By: #### U RTPCR #### [facility] [address] [address] [address] Karen Pierce Urea nitrogen [Mass/Vol] 129.0 mg/dL Critically high 7.0-18.0 [facility] Comment on above: Performed By: #### U RTPCR #### [facility] [address] [address] [address] Karen Pierce Urea nitrogen/Creatinine [Mass ratio] 14.3 mg/mg Normal [facility] Comment on above: Performed By: #### U RTPCR #### [facility] [address] [address] [address] Karen Pierce Platelet poor plasma interna tional normalized ratio (INR) by coagulation assay (relatOrdered By: Taz Barnes on 05-16-2022 INR Coag (PPP) [Relative time] 1.3 {INR} [facility] Comment on above: INR Therapeutic Rang e [...] on 05-16-2022 Protein [Mass/Vol] 6.4 g/dL 6.1-7.9 [facility] Serum or plasma alanine bal otransferase measurement without P-5'-P (enzymatic activiOrdered By: Taz Barnes on 05-16-2022 ALT No additional P-5'-P [Catalytic activity/Vol] 38 U/L 10-60 [facility] Serum or plasma albumin/glob ulin mass ratioOrdered By: Taz Barnes on 05-16-2022 Albumin/Globulin [Mass ratio] 0.8 {ratio} [facility] Serum or plasma alkaline deonte sphatase measurement (enzymatic activity/volume)Ordered By: Taz Barnes on 05-16-2022 ALP [Catalytic activity/Vol] 78 U/L 32-92 [facility] Serum or plasma aspartate am inotransferase measurement (enzymatic activity/volume)Ordered By: Taz Barnes on 05-16-2022 AST [Catalytic activity/Vol] 19 U/L 10-42 [facility] Serum or plasma total biliru bin measurement (mass/volume)Ordered By: Tza Barnes on 05-16-2022 Bilirubin [Mass/Vol] 0.4 mg/dL 0.3-1.2 [facility] URINE MICROSCOPIC ONLYon BACTERIA SMALL Abnormal NONE SEEN [facility] Comment on above: Performed By: #### U RTPCR #### [facility] [address] [place] [address] Dr. Karen Pierce Bacteria identified Cx Nom (U) INDICATED Normal [facility] Comment on above: Performed By: #### U RTPCR #### [facility] [address] [place] [address] Dr. Karen Pierce CAST NONE SEEN Normal NONE SEEN [facility] Comment on above: Performed By: #### U RTPCR #### [facility] [address] [place] [address] Dr. Karen Pierce Crystals LM Nom (Urine sed) NONE SEEN Normal NONE SEEN [facility] Comment on above: Performed By: #### U RTPCR #### [facility] [address] [place] [address] Dr. Karen Pierce Epithelial cells LM Ql (Urine sed) NONE SEEN Normal NONE SEEN /RARE [facility] Comment on above: Performed By: #### U RTPCR #### [facility] [address] [place] [address] Dr. Karen Pierce MUCOUS NONE SEEN Normal NONE SEEN [facility] Comment on above: Performed By: #### U RTPCR #### [facility] [address] [place] [address] Dr. Karen Pierce RBC 20-50 Abnormal 0-2 [facility] Comment on above: Performed By: #### U RTPCR #### [facility] [address] [address] [address] Karen Pierce WBC (U) [#/Vol] /uL Abnormal NONE SEEN [facility] Comment on above: Performed By: #### U RTPCR #### [facility] [address] [address] [address] Karen Pierce Urine sodium measurement (mo les/volume)Ordered By: Taz Barnes on 05-16-2022 Sodium (U) [Moles/Vol] 42.0 mmol/L F [facility] Comment on above: No reference [...] LORENZO SCHERER Date: 2022-05-16 09:25 Normal [facility] CBC AUTO DIFFon 05-15-2022 BASO # 0.0 103/ul Normal 0.0-0.1 [facility] Comment on above: Performed By: #### U A #### [facility] [address] [address] [address] Karen Pierce Basophils/100 WBC (Bld) 0.3 % Normal 0.2-2.0 [facility] Comment on above: Performed By: #### U A #### [facility] [address] [place] [address] Dr. Karen Pierce EO # 0.1 103/ul Normal 0.0-0.7 [facility] Comment on above: Performed By: #### U A #### [facility] [address] [address] [address] Karen Pierce Eosinophils/100 WBC (Bld) 0.7 % Critically low 0.9-7.0 [facility] Comment on above: Performed By: #### U A #### [facility] [address] [place] [address] Dr. Karen Pierce Erythrocyte distribution width (RBC) [Ratio] 14.9 % Normal 11.0-15.0 [facility] Comment on above: Performed By: #### U A #### [facility] [address] [place] [address] Dr. Karen Pierce Hematocrit (Bld) [Volume fraction] 39.8 % Critically low 42.0-54.0 [facility] Comment on above: Performed By: #### U A #### [facility] [address] [place] [address] Dr. Karen Pierce Hemoglobin (Bld) [Mass/Vol] 12.7 g/dL Critically low 14.0-18.0 [facility] Comment on above: Performed By: #### U A #### [facility] [address] [place] [address] Dr. Karen Pierce IG # 0.06 10e3/ul Critically high 0.00-0.03 [facility] Comment on above: Performed By: #### U A #### [facility] [address] [place] [address] Dr. Karen Pierce IG % 0.5 % Normal 0.0-0.5 [facility] Comment on above: Performed By: #### U A #### [facility] [address] [place] [address] Dr. Karen Pierce LYMPH # 0.9 103/ul Critically low 1.2-3.8 [facility] Comment on above: Performed By: #### U A #### [facility] [address] [place] [address] Dr. Karen Pierce Lymphocytes/100 WBC (Bld) 7.1 % Critically low 20.5-60.0 [facility] Comment on above: Performed By: #### U A #### [facility] [address] [place] [address] Dr. Karen Pierce MANUAL DIFF REQ NO Normal [facility] Comment on above: Performed By: #### U A #### [facility] [address] [place] [address] Dr. Karen Pierce MCH (RBC) [Entitic mass] 27.7 pg Normal 25.9-34.0 [facility] Comment on above: Performed By: #### U A #### [facility] [address] [place] [address] Dr. Karen Pierce MCHC (RBC) [Mass/Vol] 31.9 g/dL Normal 29.9-35.2 [facility] Comment on above: Performed By: #### U A #### [facility] [address] [place] [address] Dr. Karen Pierce MCV (RBC) [Entitic vol] 86.7 fL Normal 80.0-94.0 [facility] Comment on above: Performed By: #### U A #### [facility] [address] [place] [address] Dr. Karen Pierce MONO # 1.0 103/ul Critically high 0.3-0.8 [facility] Comment on above: Performed By: #### U A #### [facility] [address] [place] [address] Dr. Karen Pierce Monocytes/100 WBC (Bld) 8.5 % Normal 1.7-12.0 [facility] Comment on above: Performed By: #### U A #### [facility] [address] [place] [address] Dr. Karen Pierce NEUT # 9.9 103/ul Critically high 1.4-6.5 [facility] Comment on above: Performed By: #### U A #### [facility] [address] [place] [address] Dr. Karen Pierce Neutrophils/100 WBC (Bld) 82.9 % Critically high 43.0-75.0 [facility] Comment on above: Performed By: #### U A #### [facility] [address] [place] [address] Dr. Karen Pierce Platelet mean volume (Bld) [Entitic vol] 9.7 fL Normal 9.5-13.5 [facility] Comment on above: Performed By: #### U A #### [facility] [address] [place] [address] Dr. Karen Pierce PLT 206 103/ul Normal 150-450 [facility] Comment on above: Performed By: #### U A #### [facility] [address] [place] [address] Dr. Karen Pierce RBC 4.59 106/ul Critically low 4.70-6.10 [facility] Comment on above: Performed By: #### U A #### [facility] [address] [place] [address] Dr. Karen Pierce WBC 11.9 103/ul Critically high 4.0-11.0 [facility] Comment on above: Performed By: #### U A #### [facility] [address] [place] [address] Dr. Karen Pierce LIPASEon 05-15-2022 Lipase [Catalytic activity/Vol] 340.0 U/L Normal 73.0-393.0 [facility] Comment on above: Performed By: #### U A #### [facility] [address] [place] [address] Dr. Karen Pierce PROF 14(COMP METB)on 022 Albumin [Mass/Vol] 3.1 g/dL Critically low 3.4-5.0 e [facility] Comment on above: Performed By: #### U A #### [facility] [address] [place] [address] Dr. Karen Pierce Albumin/Globulin [Mass ratio] 0.7 {ratio} Normal [facility] Comment on above: Performed By: #### U A #### [facility] [address] [place] [address] Dr. Karen Pierce ALP [Catalytic activity/Vol] 105 U/L Normal 46-116 [facility] Comment on above: Performed By: #### U A #### [facility] [address] [place] [address] Dr. Karen Pierce ALT [Catalytic activity/Vol] 49 U/L Normal 16-63 [facility] Comment on above: Performed By: #### U A #### [facility] [address] [place] [address] Dr. Karen Pierce Anion gap [Moles/Vol] 18.4 mmol/L Normal Th e [facility] Comment on above: Performed By: #### U A #### [facility] [address] [address] [address] Karen Pierce AST [Catalytic activity/Vol] 20 U/L Normal 15-37 [facility] Comment on above: Performed By: #### U A #### [facility] [address] [address] [address] Karen Pierce Bilirubin [Mass/Vol] 0.3 mg/dL Normal 0.2-1.0 [facility] Comment on above: Performed By: #### U A #### [facility] [address] [place] [address] Dr. Karen Pierce Calcium [Mass/Vol] 9.1 mg/dL Normal 8.5-10.1 [facility] Comment on above: Performed By: #### U A #### [facility] [address] [place] [address] Dr. Karen Pierce Chloride [Moles/Vol] 103 mmol/L Normal 98-107 [facility] Comment on above: Performed By: #### U A #### [facility] [address] [address] [address] Karen Pierce CO2 [Moles/Vol] 20.1 mmol/L Critically low 21.0-32.0 [facility] Comment on above: Performed By: #### U A #### [facility] [address] [address] [address] Karen Pierce Creatinine [Mass/Vol] 9.58 mg/dL Critically high 0.70-1.30 [facility] Comment on above: Performed By: #### U A #### [facility] [address] [address] [address] Karen Pierce EGFR-AF PAPUA NEW GUINEAN 6 mL/min/1.73m2 Critically low >=60 [facility] Comment on above: Performed By: #### U A #### [facility] [address] [address] [address] Karen Pierce EGFR-NON AF PAPUA NEW GUINEAN 5 mL/min/1.73m2 Critically low >=60 [facility] Comment on above: Performed By: #### U A #### [facility] [address] [address] [address] Karen Pierce Globulin (S) [Mass/Vol] 4.6 g/dL Normal [facility] Comment on above: Performed By: #### U A #### [facility] [address] [address] [address] Karen Pierce Glucose [Mass/Vol] 114 mg/dL Critically high 74-106 [facility] Comment on above: Performed By: #### U A #### [facility] [address] [address] [address] Karen Pierce Potassium [Moles/Vol] 5.5 mmol/L Critically high 3.5-5.1 [facility] Comment on above: Performed By: #### U A #### [facility] [address] [address] [address] Karen Pierce Protein [Mass/Vol] 7.7 g/dL Normal 6.4-8.2 [facility] Comment on above: Performed By: #### U A #### [facility] [address] [address] [address] Karen Pierce Sodium [Moles/Vol] 136 mmol/L Normal 136-145 [facility] Comment on above: Performed By: #### U A #### [facility] [address] [address] [address] Karen Pierce Urea nitrogen [Mass/Vol] 134.0 mg/dL Critically high 7.0-18.0 [facility] Comment on above: Performed By: #### U A #### [facility] [address] [address] [address] Karen Pierce Urea nitrogen/Creatinine [Mass ratio] 14.0 mg/mg Normal [facility] Comment on above: Performed By: #### U A #### [facility] [address] [address] [address] Karen Pierce PROF CHEM 8 (BAS METB)on Anion gap [Moles/Vol] 12.6 mmol/L Normal Th [facility] Comment on above: Performed By: #### B MP #### [facility] [address] [address] [address] Karen Pierce Calcium [Mass/Vol] 8.7 mg/dL Normal 8.5-10.1 [facility] Comment on above: Performed By: #### B MP #### [facility] [address] [address] [address] Karen Pierce Chloride [Moles/Vol] 103 mmol/L Normal 98-107 [facility] Comment on above: Performed By: #### B MP #### [facility] [address] [place] [address] Dr. Karen Pierce CO2 [Moles/Vol] 27.3 mmol/L Normal 21.0-32.0 [facility] Comment on above: Performed By: #### B MP #### [facility] [address] [place] [address] Dr. Karen Pierce Creatinine [Mass/Vol] 1.26 mg/dL Normal 0.70-1.30 [facility] Comment on above: Performed By: #### B MP #### [facility] [address] [place] [address] Dr. Karen Pierce EGFR-AF PAPUA NEW GUINEAN >60 Normal >=60 [facility] Comment on above: Performed By: #### B MP #### [facility] [address] [place] [address] Dr. Karen Pierce EGFR-NON AF PAPUA NEW GUINEAN 55 mL/min/1.73m2 Critically low >=60 [facility] Comment on above: Performed By: #### B MP #### [facility] [address] [place] [address] Dr. Karen Pierce Glucose [Mass/Vol] 111 mg/dL Critically high 74-106 [facility] Comment on above: Performed By: #### B MP #### [facility] [address] [place], [place] [address] Dr. Karen Pierce Potassium [Moles/Vol] 3.9 mmol/L Normal 3.5-5.1 [facility] Comment on above: Performed By: #### B MP #### [facility] [address] [place], [place] [address] Dr. Karen Pierce Sodium [Moles/Vol] 139 mmol/L Normal 136-145 [facility] Comment on above: Performed By: #### B MP #### [facility] [address] [place], [place] [address] Dr. Karen Pierce Urea nitrogen [Mass/Vol] 21.0 mg/dL Critically high 7.0-18.0 [facility] Comment on above: Performed By: #### B MP #### [facility] [address] [place], [place] [address] Dr. Karen Pierce Urea nitrogen/Creatinine [Mass ratio] 16.7 mg/mg Normal [facility] Comment on above: Performed By: #### B MP #### [facility] [address] [place], [place] [address] Dr. Karen Pierce Comprehensive Metabolic Pane [facility] 05-11-2021 Albumin [Mass/Vol] 4.5 g/dL Normal 3.6-5.1 [facility] Comment on above: Performed By: #### C ROBYN LIPElvie #### [facility] [address] [place], [place] [id number] Albumin/Globulin [Mass ratio] 2.0 {ratio} Normal 1.0-2.5 [facility] Comment on above: Performed By: #### C ROBYN LIPD #### [facility] [address] [place], [place] [id number] ALP [Catalytic activity/Vol] 97 U/L Normal 40-129 [facility] Comment on above: Performed By: #### C ROBYN LIPD #### [facility] [address] [place], [place] [id number] ALT [Catalytic activity/Vol] 18 U/L Normal 9-46 [facility] Comment on above: Result Comment: 04/25 Female reference range changed. Performed By: #### C MP, LIPD #### [facility] [address] [place], [place] [id number] Anion gap [Moles/Vol] 17 mmol/L Normal 12-20 [facility] Comment on above: Result Comment: Giacomo ctive 05/31/2019 reference range changed. Performed By: #### C MP, LIPD #### [facility] [address] [place] [id number] AST [Catalytic activity/Vol] 15 U/L Normal 10-40 [facility] Comment on above: Performed By: #### C MP, LIPD #### [facility] [address] [id number] Bilirubin [Mass/Vol] 0.55 mg/dL Normal 0.30-1.20 [facility] Comment on above: Performed By: #### C MP, LIPD #### [facility] [address] [place], [place] [id number] BUN/CREA 17 Ratio Normal 6-22 [facility] Comment on above: Performed By: #### C MP, LIPD #### [facility] [address] [place], [place] [id number] Calcium [Mass/Vol] 9.8 mg/dL Normal 8.6-10.2 [facility] Comment on above: Performed By: #### C MP, LIPD #### [facility] [address] [place], [place] [id number] Chloride [Moles/Vol] 106 mmol/L Normal 98-107 [facility] Comment on above: Performed By: #### C MP, LIPD #### [facility] [address] [place], [place] [id number] CO2 [Moles/Vol] 23 mmol/L Normal 20-31 [facility] Comment on above: Performed By: #### C MP, LIPD #### [facility] [address] [id number] Creatinine [Mass/Vol] 1.2 mg/dL Normal 0.7-1.4 [facility] Comment on above: Performed By: #### C MP, LIPD #### [facility] [address] [place], [place] [id number] eGFRAA 73 mL/min/1.73m2 Normal >60 [facility] Comment on above: Performed By: #### C ROBYN, LIPD #### [facility] [address] [place], [place] [id number] eGFRNAA 60 mL/min/1.73m2 Low >60 [facility] Comment on above: Performed By: #### C ROBYN, LIPD #### [facility] [address] [place], [place] [id number] Globulin (S) [Mass/Vol] 2.3 g/dL Normal 1.9-3.7 [facility] Comment on above: Performed By: #### C ROBYN LIPD #### [facility] [address] [place], [place] [id number] Glucose [Mass/Vol] 105 mg/dL High 65-99 [facility] Comment on above: Result Comment: For FASTING Glucose --- ADA reference ranges: Normal 65-99 mg/dl Prediabetes 100-125 Diabetes >/= 126 Performed By: #### C ROBYN, LIPD #### [facility] [address] [place], [place] [id number] Potassium [Moles/Vol] 4.1 mmol/L Normal 3.5-5.5 [facility] Comment on above: Performed By: #### C ROBYN, LIPD #### [facility] [address] [place], [place] [id number] Protein [Mass/Vol] 6.8 g/dL Normal 6.1-8.1 [facility] Comment on above: Performed By: #### C ROBYN, LIPD #### [facility] [address] [place], [place] [id number] Sodium [Moles/Vol] 142 mmol/L Normal 135-146 [facility] Comment on above: Performed By: #### C ROBYN, LIPD #### [facility] [address] [place], [place] [id number] Urea nitrogen [Mass/Vol] 20 mg/dL Normal 7-25 [facility] Comment on above: Performed By: #### C MP, LIPD #### [facility] [address] [place], [place] [id number] Lipid Panelon 05-11-2021 Cholesterol [Mass/Vol] 109 mg/dL Low 125-200 [facility] Comment on above: Result Comment: Low risk < 200mg/dL Borderline risk 201-239 mg/dl High risk > or equal to 240 Performed By: #### C MP, LIPD #### [facility] [address], [place] [id number] Cholesterol in HDL [Mass/Vol] 30 mg/dL Low >40 [facility] Comment on above: Result Comment: High Cardiovascular Risk HDL <40 mg/dL Low Cardiovascular Risk HDL > or equal to 60 mg/dl Performed By: #### C ROBYN, LIPD #### [facility] [address] [place], [place] [id number] Cholesterol in LDL [Mass/Vol] 54 mg/dL Normal [facility] Comment on above: Result Comment: LDL ATP III CLASSIFICATION LDL less than 100 mg/dl Optimal LDL 100-129 mg/dl Near or above optimal LDL 130-159 Borderline high LDL 160-189 High LDL greater than 189 mg/dl Very High Performed By: #### C ROBYN, LIPD #### [facility] [address] [place], [place] [id number] Cholesterol in VLDL [Mass/Vol] 25 mg/dL Normal [facility] Comment on above: Performed By: #### C ROBYN, LIPD #### [facility] [address] [place], [place] [id number] Cholesterol.total/Sonya sterol in HDL [Mass ratio] 4 {ratio} Normal [facility] Comment on above: Performed By: #### C MP, LIPD #### [facility] [address] [place], [place] [id number] Triglyceride [Mass/Vol] 126 mg/dL Normal 30-150 N [facility] Comment on above: Result Comment: TRIG ATPIII CLASSIFICATIONS TRIG less than 150 mg/dl Normal TRIG 150-199 mg/dl Borderline High TRIG 200-500 mg/dl High TRIG greather than 500 mg/dl Very High Performed By: #### C MP, LIPD #### [facility] [address] [place], [place] [id number] Vital Signs Date Time Vital Sign Value Performing Clinician Facility 01-23-2024 15:00-0400 Body height 187.96 cm MD Stanley Emerson Work Phone: [facility] 01-23-2024 11:19-0400 Diastolic blood pressure 62 mm[Hg] MD Stanley Emerson Work Phone: [facility] 01-23-2024 11:19-0400 Heart rate 64 /min MD Stanley Emerson Work Phone: [facility] 01-23-2024 11:19-0400 Systolic blood pressure 90 mm[Hg] MD Stanley Emerson Work Phone: [facility] 01-23-2024 11:13-0400 Respiratory rate 20 /min MD Stanley Emerson Work Phone: [facility] 01-23-2024 11:13-0400 SaO2% (BldA) [Mass fraction] 96 % MD Stanley Emerson Work Phone: [facility] 01-23-2024 04:44-0400 Body weight 98.6 kg MD Stanley Emerson Work Phone: [facility] 01-22-2024 23:41-0400 Body temperature 98.2 [degF] MD Stanley Emerson Work Phone: [facility] 01-19-2024 10:00-0400 Inhaled oxygen flow rate 2 L/min MD tSanley Emerson Work Phone: [facility] 01-14-2024 09:35-0400 Diastolic blood pressure 67 mm[Hg] MD Stanley Emerson Work Phone: [facility] 01-14-2024 09:35-0400 Heart rate 65 /min MD Stanley Emerson Work Phone: [facility] 01-14-2024 09:35-0400 Respiratory rate 16 /min MD Stanley Emerson Work Phone: [facility] 01-14-2024 09:35-0400 SaO2% (BldA) [Mass fraction] 97 % MD Stanley Emerson Work Phone: [facility] 01-14-2024 09:35-0400 Systolic blood pressure 109 mm[Hg] MD Stanley Emerson Work Phone: [facility] 01-14-2024 07:41-0400 Body height 187.96 cm MD Stanley Emerson Work Phone: [facility] 01-14-2024 07:41-0400 Body weight 104.32 kg MD Stanley Emerson Work Phone: [facility] 10-22-2023 10:57-0400 Body height 187.96 cm MD Stanley Emerson Work Phone: [facility] 10-22-2023 10:57-0400 Body mass index (BMI) [Ratio] 28 kg/m2 MD Stanley Emerson Work Phone: [facility] 10-22-2023 10:57-0400 Body temperature 96.8 [degF] MD Stanley Emerson Work Phone: [facility] 10-22-2023 10:57-0400 Body weight 99.1 kg MD Stanley Emerson Work Phone: [facility] 10-22-2023 10:57-0400 Diastolic blood pressure 76 mm[Hg] MD Stanley Emerson Work Phone: [facility] 10-22-2023 10:57-0400 Heart rate 71 /min MD Stanley Emerson Work Phone: [facility] 10-22-2023 10:57-0400 Respiratory rate 18 /min MD Stanley Emerson Work Phone: [facility] 10-22-2023 10:57-0400 SaO2% (BldA) [Mass fraction] 98 % MD Stanley Emerson Work Phone: [facility] 10-22-2023 10:57-0400 Systolic blood pressure 110 mm[Hg] MD Stanley Emerson Work Phone: [facility] 09-18-2023 10:47-0400 Body height 187.96 cm MD Stanley Emerson Work Phone: [facility] 09-18-2023 10:47-0400 Body mass index (BMI) [Ratio] 28.6 kg/m2 MD Stanley Emerson Work Phone: [facility] 09-18-2023 10:47-0400 Body temperature 97.8 [degF] MD Stanley Emerson Work Phone: [facility] 09-18-2023 10:47-0400 Body weight 101.15 kg MD Stanley Emerson Work Phone: [facility] 09-18-2023 10:47-0400 Diastolic blood pressure 68 mm[Hg] MD Stanley Emerson Work Phone: [facility] 09-18-2023 10:47-0400 Heart rate 64 /min MD Stanley Emerson Work Phone: [facility] 09-18-2023 10:47-0400 Respiratory rate 16 /min MD Stanley Emerson Work Phone: [facility] 09-18-2023 10:47-0400 SaO2% (BldA) [Mass fraction] 98 % MD Stanley Emerson Work Phone: [facility] 09-18-2023 10:47-0400 Systolic blood pressure 118 mm[Hg] MD Stanley Emerson Work Phone: [facility] 06-30-2023 14:17-0500 Blood Pressure Location Katia ARLENE [facility] 06-30-2023 14:17-0500 Diastolic blood pressure 77 mm[Hg] Katia JACOBS [facility] 06-30-2023 14:17-0500 Heart rate 70 /min Katia JACOBS [facility] 06-30-2023 14:17-0500 Respiratory rate 16 /min Katia JACOBS [facility] 06-30-2023 14:17-0500 Systolic blood pressure 109 mm[Hg] Katia JACOBS [facility] 04-15-2023 14:00-0500 Body height 187.96 cm Jonhcelestino [employer]catherine[employer]ancoise Other [facility] Other 04-15-2023 14:00-0500 Body mass index (BMI) [Ratio] 28.73 kg/m2 Jonhcelestino [employer] Other [facility] Other 04-15-2023 14:00-0500 Body temperature 96.8 [degF] Jonhcelestino [employer] Other [facility] Other 04-15-2023 14:00-0500 Body weight 101.52 kg Jonhcelestino [employer] Other [facility] Other 04-15-2023 14:00-0500 Diastolic blood pressure 100 mm[Hg] Celia [employer] Other [facility] Other 04-15-2023 14:00-0500 Respiratory rate 18 /min Jonhcelestino [employer] Other [facility] Other 04-15-2023 14:00-0500 SaO2% (BldA) [Mass fraction] 96 % Celia Griffin Other [facility] Other 04-15-2023 14:00-0500 Systolic blood pressure 161 mm[Hg] Celia Griffin Other [facility] Other 03-11-2023 13:38-0400 Blood Pressure Location Katia JAOCBS [facility] 03-11-2023 13:38-0400 Diastolic blood pressure 100 mm[Hg] Katia JACOBS [facility] 03-11-2023 13:38-0400 Heart rate 72 /min Katia JACOBS [facility] 03-11-2023 13:38-0400 Systolic blood pressure 150 mm[Hg] Katia JACOBS [facility] 01-22-2023 09:57-0400 Body height 187.96 cm Stanley Emerson Work Phone: [facility] DO Work Phone: 01-22-2023 09:57-0400 Body mass index (BMI) [Ratio] 27.35 kg/m2 Stanley Emerson Work Phone: [facility] DO Work Phone: 01-22-2023 09:57-0400 Body surface area Derived from formula 2.23 m2 Stanley Emerson Work Phone: [facility] DO Work Phone: 01-22-2023 09:57-0400 Body weight 96.62 kg Stanley Emerson Work Phone: [facility] DO Work Phone: 01-22-2023 09:57-0400 Diastolic blood pressure 88 mm[Hg] Stanley Emerson Work Phone: [facility] DO Work Phone: 01-22-2023 09:57-0400 Heart rate 72 /min Stanley Emerson Work Phone: [facility] DO Work Phone: 01-22-2023 09:57-0400 Systolic blood pressure 126 mm[Hg] Stanley Emerson Work Phone: [facility] [facility] DO Work Phone: 08-21-2022 14:30-0400 Body height 187.96 cm Carlene Mezatrey Other [facility] Other 08-21-2022 14:30-0400 Body mass index (BMI) [Ratio] 26.32 kg/m2 Carlene Mezatrey Other [facility] Other 08-21-2022 14:30-0400 Body temperature 97.8 [degF] Carlene Mezatrey Other [facility] Other 08-21-2022 14:30-0400 Body weight 92.99 kg Carlene Mezatrey Other [facility] Other 08-21-2022 14:30-0400 Diastolic blood pressure 82 mm[Hg] Carlene Ranjith Other [facility] Other 08-21-2022 14:30-0400 SaO2% (BldA) [Mass fraction] 96 % Carlene Mezatrey Other [facility] Other 08-21-2022 14:30-0400 Systolic blood pressure 124 mm[Hg] Carlene Kasper Other [facility] [employer] Other 07-31-2022 07:25-0500 Blood Pressure Location [facility]ia [employer] [facility] 07-31-2022 07:25-0500 Diastolic blood pressure 89 mm[Hg] Katia JACOBS [facility] 07-31-2022 07:25-0500 Heart rate 70 /min Katia JACOBS [facility] 07-31-2022 07:25-0500 Respiratory rate 16 /min Katia JACOBS [facility] 07-31-2022 07:25-0500 Systolic blood pressure 130 mm[Hg] Katia JACOBS [facility] 07-25-2022 09:45-0500 Body height 187.96 cm Margarito Valentine Other [facility] Other 07-25-2022 09:45-0500 Body mass index (BMI) [Ratio] 26.32 kg/m2 Margarito Valentine Other [facility] Other 07-25-2022 09:45-0500 Body temperature 96.2 [degF] Margarito Valentine Other [facility] Other 07-25-2022 09:45-0500 Body weight 92.99 kg Margarito Valentine Other [facility] Other 07-25-2022 09:45-0500 Diastolic blood pressure 60 mm[Hg] Margarito Valentine Other [facility] Other 07-25-2022 09:45-0500 SaO2% (BldA) [Mass fraction] 97 % Margarito Topetesarina Other [facility] Other 07-25-2022 09:45-0500 Systolic blood pressure 110 mm[Hg] Margarito Topetesarina Other [facility] Other 07-03-2022 07:34-0500 Body temperature 98.9 [degF] MD Stanley Emerson Work Phone: [facility] 07-03-2022 07:34-0500 Diastolic blood pressure 91 mm[Hg] MD Stanley Emerson Work Phone: [facility] 07-03-2022 07:34-0500 Heart rate 87 /min MD Stanley Emerson Work Phone: [facility] 07-03-2022 07:34-0500 Respiratory rate 18 /min MD Stanley Emerson Work Phone: [facility] 07-03-2022 07:34-0500 SaO2% (BldA) [Mass fraction] 94 % MD Stanley Emerson Work Phone: [facility] 07-03-2022 07:34-0500 Systolic blood pressure 159 mm[Hg] MD Stanley Emerson Work Phone: [facility] 07-03-2022 05:46-0500 Body weight 94 kg MD Stanley Emerson Work Phone: [facility] 07-02-2022 16:27-0500 Inhaled oxygen flow rate 6 L/min MD Stanley Emerson Work Phone: [facility] 07-02-2022 10:06-0500 Body height 185.42 cm MD Stanley Emerson Work Phone: [facility] 07-02-2022 10:06-0500 Body mass index (BMI) [Ratio] 27.3 kg/m2 MD Stanley Emerson Work Phone: [facility] 06-19-2022 10:00-0500 Body height 187.96 cm Margarito Valentine Other [facility] Other 06-19-2022 10:00-0500 Body mass index (BMI) [Ratio] 26.32 kg/m2 Margarito Valentine Other [facility] Other 06-19-2022 10:00-0500 Body temperature 97.8 [degF] Margarito Valentine Other [facility] Other 06-19-2022 10:00-0500 Body weight 92.99 kg Margarito Valentine Other [facility] Other 06-19-2022 10:00-0500 Diastolic blood pressure 68 mm[Hg] Margarito Valentine Other [facility] Other 06-19-2022 10:00-0500 SaO2% (BldA) [Mass fraction] 95 % Margarito Valentine Other [facility] Other 06-19-2022 10:00-0500 Systolic blood pressure 108 mm[Hg] Margarito Valentine Other [facility] Other 06-12-2022 13:07-0500 Body height 187.96 cm MD Stanley Emerson Work Phone: [facility] 06-12-2022 13:07-0500 Body weight 93.44 kg MD Stanley Emerson Work Phone: [facility] 06-06-2022 12:00-0500 Body height 187.96 cm Margarito Topetesarina Other [facility] Other 06-06-2022 12:00-0500 Body mass index (BMI) [Ratio] 26.32 kg/m2 Margarito Serge Other [facility] Other 06-06-2022 12:00-0500 Body temperature 97.2 [degF] Margarito Serge Other [facility] Other 06-06-2022 12:00-0500 Body weight 92.99 kg Margarito Serge Other [facility] Other 06-06-2022 12:00-0500 Diastolic blood pressure 70 mm[Hg] Margarito Valentine Other [facility] Other 06-06-2022 12:00-0500 SaO2% (BldA) [Mass fraction] 98 % Margarito Serge Other [facility] Other 06-06-2022 12:00-0500 Systolic blood pressure 108 mm[Hg] Margarito Valentine Other [facility] Other 06-04-2022 12:00-0500 Body height 187.96 cm Jonhcelestino Terezasaurav Other [facility] Other 06-04-2022 12:00-0500 Body mass index (BMI) [Ratio] 26.42 kg/m2 Celia Coguan Groupsaurav Other [facility] Other 06-04-2022 12:00-0500 Body temperature 96.6 [degF] Celia Feedjit Other [facility] Other 06-04-2022 12:00-0500 Body weight 93.35 kg Celia Griffin Other [facility] Other 06-04-2022 12:00-0500 Diastolic blood pressure 70 mm[Hg] Celia Griffin Other [facility] Other 06-04-2022 12:00-0500 Respiratory rate 20 /min Celia Griffin Other [facility] Other 06-04-2022 12:00-0500 SaO2% (BldA) [Mass fraction] 98 % Celia Griffin Other [facility] Other 06-04-2022 12:00-0500 Systolic blood pressure 100 mm[Hg] Celia Griffin Other [facility] Other 06-03-2022 15:38-0500 Body height 187.96 cm Stanley Emerson Work Phone: [facility] [employer] 250 DO Work Phone: 06-03-2022 15:38-0500 Body mass index (BMI) [Ratio] 26.45 kg/m2 Stanley Emerson Work Phone: [facility] [employer] 250 DO Work Phone: 06-03-2022 15:38-0500 Body surface area Derived from formula 2.2 m2 Stanley Emerson Work Phone: [facility] 250 DO Work Phone: 06-03-2022 15:38-0500 Body weight 93.44 kg Stanley Emerson Work Phone: [facility] [employer] 250 DO Work Phone: 06-03-2022 15:38-0500 Diastolic blood pressure 78 mm[Hg] Stanley Emerson Work Phone: [facility] 250 DO Work Phone: 06-03-2022 15:38-0500 Heart rate 71 /min Stanley Emerson Work Phone: [facility] 250 DO Work Phone: 06-03-2022 15:38-0500 Systolic blood pressure 106 mm[Hg] Stanley Emerson Work Phone: [facility] 250 DO Work Phone: 05-22-2022 11:53-0500 Body temperature 98.8 [degF] MD Stanley Emerson Work Phone: [facility] 05-22-2022 11:53-0500 Diastolic blood pressure 72 mm[Hg] MD Stanley Emerson Work Phone: [facility] 05-22-2022 11:53-0500 Heart rate 78 /min MD Stanley Emerson Work Phone: [facility] 05-22-2022 11:53-0500 Respiratory rate 16 /min MD Stanley Emerson Work Phone: [facility] 05-22-2022 11:53-0500 SaO2% (BldA) [Mass fraction] 97 % MD Stanley Emerson Work Phone: [facility] 05-22-2022 11:53-0500 Systolic blood pressure 108 mm[Hg] MD Stanley Emerson Work Phone: [facility] 05-22-2022 06:02-0500 Body weight 88.8 kg MD Stanley Emerson Work Phone: [facility] 05-21-2022 11:48-0500 63 1 Stanley Emerson Work Phone: [facility] 250 DO Work Phone: Comment on above: [id number] 05-17-2022 12:08-0500 Body height 187.96 cm MD Stanley Emerson Work Phone: [facility] Encounters Encounter Date Encounter Type Care Provider Facility Start: 01-23-2024 Non-patient / Non-visit MD Kai Emerson Work Phone: [facility] Work Phone: Start: 01-20-2024 ambulatory Blanca X Orzech Facilit y:[facility] Start: 01-16-2024 Non-patient / Non-visit MD Kai Emerson Work Phone: [facility] Work Phone: Start: 01-16-2024 End: 01-23-2024 Evaluation and management of inpatient MD Stanley Emerson Work Phone: [facility] [place] [facility] Work Phone: Start: 01-14-2024 Non-patient / Non-visit MD Kai Emerson Work Phone: [facility] Work Phone: Start: 01-14-2024 End: 01-14-2024 Admission to same day surgery center MD Stanley Emerson Work Phone: [facility] Work Phone: Start: 01-14-2024 End: 01-14-2024 ambulatory MD Stanley Emerson Work Phone: [facility] Work Phone: Start: 12-26-2023 End: 12-26-2023 Patient encounter procedure MD Stanley Emerson Work Phone: [facility] Start: 12-26-2023 End: 12-26-2023 ambulatory MD Stanley Emerson Work Phone: [facility] Work Phone: Start: 12-25-2023 End: 12-25-2023 [facility]ulatory [facility] Start: 12-25-2023 End: 12-25-2023 Patient encounter procedure [facility] Gomez [facility] Start: 11-19-2023 End: 11-19-2023 ambulatory STANLEY EMERSON Not Available Start: 11-04-2023 End: 11-04-2023 ambulatory Blanca X Orzech Facility:[facility] Start: 11-04-2023 End: 11-04-2023 Patient encounter procedure Blanca X Orzech [facility] Start: 10-22-2023 End: 10-22-2023 ambulatory MD Stanley Emerson Work Phone: [facility] Work Phone: Start: 10-22-2023 End: 10-22-2023 Patient encounter procedure MD Stanley Emerson Work Phone: [facility] Nephrology Work Phone: Start: 10-16-2023 Non-patient / Non-visit MD Kai Emerson Work Phone: [facility] Work Phone: Start: 10-07-2023 End: 10-07-2023 ambulatory Katia JACOBS Facility: [facility] Start: 10-07-2023 End: 10-07-2023 Patient encounter procedure Katia JACOBS [facility] Start: 10-06-2023 End: 10-06-2023 ambulatory STANLEY EMERSON Not Available Start: 10-03-2023 End: 10-03-2023 Lab Drop off Katia JACOBS [facility] Start: 10-03-2023 End: 10-03-2023 ambulatory Katia Isabel ARLENE Facility:[facility] Start: 10-03-2023 End: 10-03-2023 Patient encounter procedure Katia Hall ARLENE [facility] Dominic Start: 09-30-2023 Non-patient / Non-visit MD Kai Emerson Work Phone: [facility] Work Phone: Start: 09-18-2023 Bradyarrhythmia MD Stanley billingsley Work Phone: [facility] Start: 09-18-2023 End: 09-18-2023 ambulatory MD Stanley Emerson Work Phone: [facility] Work Phone: Start: 09-18-2023 End: 09-18-2023 Patient encounter procedure MD Stanley Emerson Work Phone: [facility] Work Phone: Start: 09-11-2023 End: 09-11-2023 ambulatory Katia JACOBS Facility:[facility] Start: 09-11-2023 End: 09-11-2023 Patient encounter procedure Katia Isabel JACOBS [facility] Dominic Start: 08-18-2023 End: 08-18-2023 Patient encounter procedure MD Stanley Emerson Work Phone: [facility] Work Phone: Start: 08-18-2023 End: 08-18-2023 ambulatory MD Stanley Emerson Work Phone: [facility] Work Phone: Start: 08-15-2023 End: 08-15-2023 ambulatory Katiadesi JACOBS Facility:[facility] Start: 08-15-2023 End: 08-15-2023 Patient encounter procedure Katia JACOBS [facility] Dominic Start: 08-04-2023 End: 08-04-2023 ambulatory STANLEY EMERSON Not Available Start: 07-01-2023 End: 07-01-2023 ambulatory Katia R JACOBS Facility:[facility] Start: 06-30-2023 End: 06-30-2023 ambulatory Katia Isabel JACOBS Facility:[facility] [place] Start: 06-30-2023 End: 06-30-2023 Patient encounter procedure Katia JACOBS [facility] Start: 06-16-2023 End: 06-16-2023 ambulatory Katia JACOBS Facility:[facility] Start: 06-16-2023 End: 06-16-2023 Patient encounter procedure Katia R ARLENE [facility] Start: 06-10-2023 End: 06-10-2023 ambulatory Katiadesi JACOBS Facility:[facility] Start: 06-10-2023 End: 06-10-2023 Patient encounter procedure Katia R ARLENE [facility] Start: 05-28-2023 End: 05-28-2023 ambulatory STANLEY EMERSON Not Available Start: 05-12-2023 End: 05-12-2023 ambulatory STANLEY EMERSON Not Available Start: 05-06-2023 End: 05-06-2023 ambulatory Celia Griffin Other [facility] Other Start: 05-06-2023 Telephone encounter Celia Danielss [facility] Start: 04-16-2023 End: 04-16-2023 ambulatory Celia Danielss Other [facility] [employer] Other Start: 04-16-2023 Telephone encounter Celia Danielss [facility] Start: 04-15-2023 End: 04-15-2023 ambulatory Celia Danielss Other [facility] [employer] Other Start: 04-15-2023 Office outpatient vi sit 25 minutes Azcelestino Danielss [facility] Start: 04-08-2023 End: 04-08-2023 Patient encounter procedure MD Stanley Emerson Work Phone: [facility] Start: 04-08-2023 End: 04-08-2023 ambulatory MD Stanley Emerson Work Phone: [facility] Work Phone: Start: 03-11-2023 End: 03-11-2023 Lab Drop off Katia JACOBS [facility] Start: 03-11-2023 End: 03-11-2023 ambulatory Katia JACOBS Facility:[facility] Start: 03-11-2023 End: 03-11-2023 Patient encounter procedure Katia JACOBS [facility] Start: 01-22-2023 Office outpatient vi sit 25 minutes Stanley Emerson Work Phone: [place] [id number] DO Work Phone: Start: 01-22-[address] Teo Stokes Facility: Start: 12-25-2022 End: 12-25-2022 ambulatory Katia JACOBS Facility:[facility] Start: 12-25-2022 End: 12-25-2022 Patient encounter procedure Katia JACOBS [facility] Start: 12-10-2022 End: 12-10-2022 ambulatory Katia JACOBS Facility:[facility] Start: 12-10-2022 End: 12-10-2022 Lab Drop off Katia JACOBS [facility] Start: 12-10-2022 End: 12-10-2022 ambulatory Katia JACOBS Facility:[facility] Start: 12-10-2022 End: 12-10-2022 Patient encounter procedure Katia R ARLENE [facility] Start: 10-04-2022 End: 10-04-2022 Patient encounter procedure Katia R ARLENE [facility] Start: 09-18-2022 End: 09-18-2022 Patient encounter procedure Katia Hall ARLENE [facility] Start: 09-15-2022 End: 09-15-[address] STANLEY EMERSON . Facility:[facility] Start: 09-12-2022 End: 09-12-[address] STANLEY EMERSON . Facility:[facility] Start: 09-08-2022 Encounter for preprocedural laboratory examination CELIA GRIFFIN [facility] Start: 09-04-2022 End: 09-05-[address] STANLEY EMERSON . Facility:[facility] Start: 09-04-2022 Encounter for preprocedural cardiovascular examination DR KATIA JACOBS . [facility] Start: 09-02-2022 End: 09-03-[address] STANLEY EMERSON . Facility:[facility] Start: 09-02-2022 End: 09-03-2022 Encounter for preprocedural laboratory examination DR STANLEY EMERSON . Facility:[facility] Start: 09-02-2022 End: 09-03-[address] STANLEY EMERSON . Facility:[facility] Start: 09-02-2022 End: 09-03-2022 Encounter for preprocedural cardiovascular examination DR STANLEY EMERSON . Facility:[facility] Start: 08-21-2022 End: 08-21-2022 ambulatory Carlene Kasper Other [facility] Other Start: 08-21-2022 Follow-up encounter Carlene Dickerson [facility] Start: 08-16-2022 End: 08-16-2022 ambulatory MD Stanley Emerson Work Phone: [facility] Work Phone: Start: 08-16-2022 End: 08-16-2022 Patient encounter procedure MD Stanley Emerson Work Phone: [facility] Work Phone: Start: 07-31-2022 End: 07-31-2022 Patient encounter procedure Katia JACOBS [facility] Start: 07-25-2022 End: 07-25-2022 ambulatory Margarito Valentine Other [facility] Other Start: 07-25-2022 Postop follow up vis it related to original px Margarito Valentine [facility] Start: 07-24-2022 End: 07-24-2022 ambulatory MD Stanley Emerson Work Phone: [facility] Work Phone: Start: 07-24-2022 End: 07-24-2022 Patient encounter procedure MD Stanley Emerson Work Phone: [facility] Work Phone: Start: 07-02-2022 End: 07-03-2022 Evaluation and management of inpatient MD Stanley Emerson Work Phone: [facility] Work Phone: Start: 06-21-2022 End: 06-21-2022 Patient encounter procedure MD Stanley Emerson Work Phone: [facility]-Pre-Surgical Testing Work Phone: Start: 06-19-2022 End: 06-19-2022 ambulatory Margarito Valentine Other [facility] Other Start: 06-19-2022 Office outpatient vi sit 25 minutes Margarito Valentine [facility] Vascular Surgery Start: 06-12-2022 End: 06-12-2022 ambulatory MD Stanley Emerson Work Phone: [facility] Work Phone: Start: 06-12-2022 End: 06-12-2022 Patient encounter procedure MD Stanley Emerson Work Phone: [facility] Work Phone: Start: 06-11-2022 End: 06-11-2022 Patient encounter procedure HEATHER OMALLEY [facility] Start: 06-06-2022 End: 06-06-2022 ambulatory Margarito Valentine Other [facility] Other Start: 06-06-2022 Office outpatient vi sit 25 minutes Margarito Valentine [facility] Vascular Surgery Start: 06-04-2022 End: 06-04-2022 ambulatory Celia Griffin Other [facility] Other Start: 06-04-2022 Office outpatient vi sit 25 minutes Celia Griffin [facility] Nephrology Tom Start: 06-03-2022 Office outpatient vi sit 25 minutes Stanley Emerson Work Phone: [facility] 250 DO Work Phone: Start: 06-03-[address] Stanley Emerson Facility:[id number] Start: 05-21-[address] Stanley Emerson Facility:[id number] Start: 05-20-[address] Stanley Emerson Facility:[id number] Start: 05-19-[address] Teo Stokes Facility:[id number] Start: 05-18-[address] Teo Stokes Facility:[id number] Start: 05-17-[address] Stanley Emerson Facility:[id number] Start: 05-17-2022 Bradyarrhythmia MD Stanley billingsley Work Phone: [facility] Start: 05-17-[address] Teo Stokes Facility:[id number] Start: 05-16-2022 End: 05-22-2022 Encounter for preprocedural cardiovascular examination MD Stanley Emerson Work Phone: [facility] Start: 05-16-2022 End: 05-22-2022 Evaluation and management of inpatient MD Stanley Emerson Work Phone: [facility] [place] [facility] Work Phone: Start: 05-16-2022 End: 05-16-[address] STANLEY EMERSON . Facility:[facility] Start: 05-15-2022 End: 05-16-[address] STANLEY EMERSON . Facility:[facility] Start: 01-04-2022 End: 01-04-[address] STANLEY EMERSON . Facility:[facility] Patient encounter status Stanley Emerson Work Phone: [facility] 250 DO Work Phone: End: 01-22-2023 Patient encounter status Stanley Emerson Work Phone: [facility] 250 DO Work Phone: Procedures Date Procedure Procedure Detail Performing Clinician Start: 01-17-2024 Urine culture MD Stanley Emerson Work Phone: Start: 01-17-2024 Plain chest X-ray MD Pete Emerson Work Phone: Start: 01-16-2024 CL Iliac/Fem w/LHC MD Bell Emerson Work Phone: Start: 01-16-2024 CL LHC & COR Angio MD Bell Emerson Work Phone: Start: 01-16-2024 CL PCI AMI 1st Vesse l LAD KATHERIN MD Stanley Emerson Work Phone: Start: 01-14-2024 Colonoscopy MD Stanley Emerson Work Phone: Start: 10-03-2023 Flexible cystoscopy Rosemary JACOBS Start: 08-18-2023 CT of abdomen and pe [...] repair of abdominal aortic aneurysm MD Stanley mEerson Work Phone: Start: 06-12-2022 Computed tomography angiography [...] stent i n inferior vena cava Stanley Layla Singhjose cruz Work Phone: Operation on bladder Stanley Rich Samanthajose cruz Work Phone: Urinary catheter placement Stanley Emerson Work Phone: NEGATED: Highlighted row has not occurred! Colonoscopy Stanley Rich Samanthajose cruz Work Phone: Plan of Treatment Date Care Activity Detail Author Start: 01-23-2024 [facility] Start: 01-23-2024 Bacteria identified in Urine by Culture [facility] Start: 01-22-2024 Referral to clinical government relations analyst [facility] Start: 01-22-2024 Referral to rehabilitation physician [facility] Start: 01-21-2024 FUV, Provider: Teo Stokes, Status: Pen, Time: 11:50 AM FUV, Provider: Teo Stokes, Status: Pen, Time: 11:50 AM [facility] 250 DO Work Phone: Start: 01-16-2024 Hospital admission [facility] Start: 01-16-2024 Referral to cardiac rehabilitation program [facility] Start: 01-16-2024 [facility] Start: 01-14-2024 [facility] Start: 04-08-2023 Bacteria identified in Urine by Culture [facility] Start: 12-10-2022 FUV, Provider: Teo Stokes, Status: Pen, Time: 10:10 AM FUV, Provider: Teo Stokes, Status: Pen, Time: 10:10 AM [facility] 250 DO Work Phone: Start: 07-24-2022 MR Abdomen WO and W contrast IV [facility] Start: 07-24-2022 MRI of abdomen with contrast MR abdomen wo/w con [facility] Start: 07-03-2022 [facility] Start: 07-02-2022 Fluoroscopy of Aorta and Bilateral Lower Extremity Arteries using Low Osmolar Contrast Fluoroscopy of Aorta and Bilateral Lower Extremity Arteries using Low Osmolar Contrast [facility] Start: 07-02-2022 Restriction of Abdominal Aorta with Intraluminal Device, Percutaneous Approach Restriction of Abdominal Aorta with Intraluminal Device, Percutaneous Approach [facility] Start: 05-22-2022 [facility] Start: 05-20-2022 Evaluation procedure [facility] Start: 05-19-2022 [facility] Start: 05-17-2022 End: 05-17-2022 [facility] Start: 05-16-2022 Referral to global process owner [facility] Start: 05-16-2022 Referral to vascular surgeon [facility] Start: 05-16-2022 Hospital admission [facility] Patient Education [facility] Work Phone: Patient referral [facility] Work Phone: Renal function 2000 panel - Serum or Plasma [facility] [place] Thoracic and abdo arturo aorta [facility] Immunizations Immunization Date Immunization Notes Care Provider Fa drew 03-29-2022 Pfizer COVID-19 Vac Bivalent 30 MCG/0.3ML Intramuscular Suspension Stanley Emerson Work Phone: [facility] 03-16-2022 influenza virus vacc ine, unspecified formulation Katia JACOBS [facility] 03-16-2022 influenza, seasonal, injectable Stanley Emerson Work Phone: [facility] 250 DO Work Phone: 03-06-2022 Fluzone High-Dose Quadrivalent 0.7 ML Intramuscular Suspension Prefilled Syringe Stanley Emerson Work Phone: [facility] 250 DO Work Phone: 03-06-2022 influenza virus vacc ine, unspecified formulation HEATHERMERCEDES OMALLEY [facility] 10-03-2021 Comirnaty 30 MCG/0.3 ML Intramuscular Suspension Stanley Emerson Work Phone: [facility] 250 DO Work Phone: 10-03-2021 COVID-19 mRNA, Taniya wright (Pfizer) MD Stanley Emerson Work Phone: [facility] 10-03-2021 SARS-CoV-2 mRNA (gkamebohhkn-jklr-fcseke e) vaccine HEATHER OMALLEY [facility] 04-23-2021 pneumococcal polysaccharide vaccine, 23 valent Stanley Emerson Work Phone: [facility] 02-22-2021 influenza virus vacc ine, unspecified formulation Katia JACOBS [facility] 02-22-2021 influenza, injectabl e, quadrivalent, preservative free Stanley Emerson Work Phone: [facility] 250 DO Work Phone: 02-21-2021 Pfizer-BioNTech COVI D-19 Vacc 30 MCG/0.3ML Intramuscular Suspension Stanley Emerson Work Phone: [facility] Comment on above: Result Comment: 2022: [id number] 07-28-2020 Pfizer-BioNTech COVI D-19 Vacc 30 MCG/0.3ML Intramuscular Suspension Stanley Emerson Work Phone: [facility] 07-07-2020 Pfizer-BioNTech COVI D-19 Vacc 30 MCG/0.3ML Intramuscular Suspension Peteludy Layla Idania Work Phone: [facility] 02-22-2020 influenza virus vacc ine, unspecified formulation HEATHER OMALLEY [facility] 02-22-2020 Seasonal, quadrivale nt, recombinant, injectable influenza vaccine, preservative free Peteludy Emerson Work Phone: -[facility] 250 DO Work Phone: Payers Date Payer Category Payer Self-pay 2017 Medicare [id number] 1959 Medicare [id number] 1959 Private Health Insurance [id number] 1945 Unknown [id number] 2.840.1.014812.3.579.2.59 1943 Unknown [id number] 2.840.1.904727.3.579.2.59 1943 Unknown [id number] .840.1.549673.3.579.2.59 1943 Unknown [id number] 2.840.1.513982.3.579.2.593 1943 Unknown [id number] 2.840.1.642511.3.579.2.59 1943 Unknown [id number] 2.16840.1.881673.3.579.2.59 1943 Unknown [id number] 2.840.1.826597.3.579.2.593 1943 Unknown [id number] 2.16.840.1.977550.3.579.2.593 1943 Unknown [id number] 2.16.840.1.193115.3.579.2.356 1943 Unknown [id number] 2.16.840.1.810126.3.579.2.356 1943 Unknown [id number] 2.16.840.1.895686.3.579.2.356 1943 Unknown [id number] 2..840.1.980779.3.579.2.356 1943 Unknown [id number] 2.840.1.025061.3.579.2.356 1943 Unknown [id number] 2.840.1.887529.3.579.2.356 1943 Unknown [id number] 2.840.1.539490.3.579.2.356 1943 Unknown [id number] 2.840.1.045805.3.579.2.356 1943 Unknown [id number] .840.1.652003.3.579.2.727 1943 Unknown [id number] 2.840.1.622308.3.579.2.727 1943 Unknown [id number] 2.840.1.801985.3.579.2.727 1943 Unknown [id number] .840.1.657164.3.579.2.727 194 Unknown [id number] .840.1.600100.3.579.2.727 1943 Unknown [id number] 2.840.1.502829.3.579.2.727 194 Unknown [id number] 2.840.1.865314.3.579.2.727 194 Unknown [id number] 2.16.840.1.438828.3.579.2.727 194 Unknown [id number] 2.16.840.1.963799.3.579.2.727 1944 Unknown [id number] 2.16.840.1.982452.3.579.2.727 1944 Unknown [id number] 2.16.840.1.405008.3.579.2.727 1943 Unknown [id number] 2.16.840.1.807898.3.579.2.727 194 Unknown [id number] 2.16.840.1.602895.3.579.2.727 1943 Unknown [id number] 2.16.840.1.722951.3.579.2.727 1943 Unknown [id number] 2.16.840.1.050705.3.579.2.727 1943 Unknown [id number] 2.16.840.1.892745.3.579.2.125 9 -194 Unknown [id number] 2.16.840.1.657934.3.579.2.125 9 -194 Unknown [id number] 2.16.840.1.844849.3.579.2.125 9 -194 Unknown [id number] 2.16.840.1.962664.3.579.2.125 9 -194 Unknown [id number] 2.16.840.1.873695.3.579.2.125 9 -194 Unknown [id number] 2.16.840.1.629010.3.579.2.727 194 Unknown [id number] 2.16.840.1.098031.3.579.2.727 Medicare Medicare Nonpatient [id number] Unknown Unknown [facility] [id number] Unknown [id number] 2.16.840.1.947609.3.579.2.531 Unknown [id number] 2.16.840.1.824568.3.579.2.531 Unknown [id number] 2.16.840.1.104328.3.579.2.531 Unknown [id number] 2.16.840.1.783038.3.579.2.531 Unknown [id number] 2.16.840.1.016338.3.579.2.531 Social History Date Type Detail Facility Daily caffeine consumption Daily caffeine consumption -[facility] 250 DO Work Phone: Comment on above: 3-4 cups coffee kellen y; 05/17/23 quit; 1/2 dozen cigarettes ; Start: 06-11-2022 End: 03-11-2023 Tobacco smoking status Heavy tobacco smoker (finding) [facility] Eva Sex Assigned At Male [facility] Start: 05-17-2022 End: 01-23-2024 Tobacco smoking status NHIS Smoker (finding) [facility] Start: 1945 Sex Assigned At Male F [facility] Start: 07-02-2022 End: 07-02-2022 Tobacco smoking status NHIS Ex-smoker (finding) [facility] Tobacco smoking status Never [facility] Medical Equipment Procedure Code Equipment Code Equipment Origin al Text Equipment Identifier Dates Percutaneous endovascular repair of abdominal aortic aneurysm (AAA) Abdominal aorta endovascular stent-graft [id number] FDA Start: 07-02-2022 Percutaneous endovascular repair of abdominal aortic aneurysm (AAA) Abdominal aorta endovascular stent-graft ()[id number] FDA Start: 02-07-2023 Percutaneous endovascular repair of abdominal aortic aneurysm (AAA) Abdominal aorta endovascular stent-graft ()[id number] FDA Start: 07-02-2022 Percutaneous endovascular repair of abdominal aortic aneurysm (AAA) Soft-tissue/mesh anchor, non-bioabsorbable [id number] FDA Start: 07-02-2022 CL STENT JERZY FRONTIER 3.0 X 38 FDA Start: 01-16-2024 Goals Date Patient Goal Desired Activity /State Functional Status Date Assessment Result Facility 01-23-2024 Functional status Patient at Baseline [facility] Work Phone: 10-03-2023 Functional Status N/A [facility] 06-30-2023 Functional Status N/A [facility] 06-10-2023 Functional Status N/A [facility] 03-11-2023 Functional Status N/A [facility] 12-10-2022 Functional Status N/A [facility] 09-18-2022 Functional Status N/A [facility] 07-31-2022 Functional Status N/A [facility] 07-03-2022 Functional status Patient at Baseline [facility] Work Phone: 06-11-2022 Functional Status N/A [facility] 05-16-2022 Functional status Patient Not at Baseline [facility] Work Phone: Mental Status Date Assessment Result Facility 01-23-2024 Cognitive function Cognitive Sta tus Patient is Progressing Toward Baseline [facility] Work Phone: 07-03-2022 Cognitive function Cognitive Sta tus Patient at Baseline [facility] Work Phone: 05-16-2022 Cognitive function Cognitive Sta tus Patient at Baseline [facility] Work Phone: Clinical Notes 06-04-2022 to 01-23-2024 Note Date & Type Note Facility 01-23-2024 Consult note Note Date/Time January 23, 2024 12:29pm [facility] [address] [place] [address] Physiatry (Rehab) Consult Note Signed Patient: Alex Anderson MR#: [id number] : 1945 Acct:[id number] Age/Sex: 78 / M Adm Date: 4 Loc: Room: [address] [place] [address] Type: ADM IN Attending Dr: Nas Pruett DO Copies to: MD Rogelio Richards MD W Scott Sheldon, DO~ Etiologic Dx/Impairment Group Narrative Narrative: Ischemic cardiomyopathy HPI Consult Date: 01/23/24 Requesting Physician: Nas Pruett DO Primary Care Provider: Stanley Emerson MD Consult Narrative Reason for consult: functional decline HPI: Mr. Anderson is an 78-year-old male admitted with multifactorial functional decline in the setting of ischemic cardiomyopathy status post mid LAD stenting for ST elevation ID (01/15) course complicated by hypotension, atrial fibrillation, and recently sundowning/delirium. and daughter at bedside. We had a long discussion about post acute care planning, please see below. They were a little unsettled about events from lastnight as it regards to his agitation and behaviors. Review of Systems Review of Systems Unobtainable due to mental status PMFSH Source: Obtained From Family Medical History Villarreal catheter in place BPH (benign prostatic hyperplasia) Bladder cancer removed Difficulty swallowing pills COVID-19 history 01/14 Problem List clean-up per request of Phys. EHR Cmte COPD (chronic obstructive pulmonary disease) Osteoarthritis Kidney failure stage 1 Hyperlipidemia Obstructive uropathy Vitamin B 12 deficiency Problem List clean-up per request of Phys. EHR Cmte Folic acid deficiency Sundowning Tobacco abuse quit april of 2023 Problem List clean-up per request of Phys. EHR Cmte Bilateral hydronephrosis TIA (transient ischemic attack) Problem List clean-up per request of Phys. EHR Cmte Dyslipidemia Essential hypertension Kidney stones history of Problem List clean-up per request of Phys. EHR Cmte Surgical History S/P cystoscopy Status post endovascular aneurysm repair (EVAR) History of bilateral cataract extraction Family History Father Brain tumor Mother Rheumatic fever Brother Bladder cancer Son Family history of mental disorder Legacy FamHx Problem: Diagnosed with Mental Illness Social History Smoking Status: Current every day smoker Tobacco Type: cigarettes Substance Use Type: None Substance Abuse Comment: No alcohol use Meds Medications and Allergies Allergies No Known Allergies Allergy (Verified 12/31/23 14:13) Home Medications albuterol sulfate 90 mcg/actuation aerosol inhaler 2 puff inhalation Q6HR PRN shortness of breath or wheezing 10/22/23 [History Confirmed 01/16/24] aspirin 81 mg tablet,delayed release (Adult Low Dose Aspirin) 81 mg PO DAILY 10/22/23 [History Confirmed 01/16/24] ferrous sulfate 142 mg (45 mg iron) tablet,extended release 142 mg PO DAILY 10/22/23 [History Confirmed 01/16/24] multivitamin 1 tab PO DAILY 10/22/23 [History Confirmed 01/16/24] spironolactone 25 mg tablet 25 mg PO DAILY 10/22/23 [History Confirmed 01/16/24] amlodipine 5 mg tablet 5 mg PO DAILY 12/31/23 [History Confirmed 01/16/24] inulin 2 gram chewable tablet (Fiber Gummies) 2 g PO DAILY 12/31/23 [History Confirmed 01/16/24] atorvastatin 80 mg tablet 80 mg PO QPM 30 days #30 tabs 01/16/24 [Rx] carvedilol 6.25 mg tablet 6.25 mg PO BID.WITH.MEALS 30 days #60 tabs 01/16/24 [Rx] lisinopril 5 mg tablet 5 mg PO DAILY 30 days #30 tabs 01/16/24 [Rx] nitroglycerin 0.4 mg sublingual tablet 0.4 mg sublingual Q5M PRN chest pain 30 days #25 tabs 01/16/24 [Rx] ticagrelor 90 mg tablet (Brilinta) 90 mg PO BID 90 days #180 tabs 01/16/24 [Rx] Exam Physical Exam Vital Signs: Temp Pulse Resp BP Pulse Ox O2 Del Method O2 Flow Rate 98.2 F 74 20 92/55 L 96 Room Air 2 01/22/24 23:41 01/23/24 11:19 01/23/24 11:13 01/23/24 11:19 01/23/24 11:13 01/23/24 11:13 01/19/24 10:00 Narrative: Somnolent but arousable to verbal stim. Hard of hearing but able to answer a few questions then closes eyes Moves extremities symmetric against gravity Minimal edema Results - Phys. Rehab Labs Labs: Laboratory Results - last 24 hr 01/23/24 09:06 Urine Color Yellow Urine Appearance Clear Urine pH 5.5 Ur Specific [place] 1.022 Urine Protein Trace H Urine Glucose (UA) Normal Urine Ketones Negative Urine Occult Blood 2+ H Urine Nitrite Negative Urine Bilirubin Negative Urine Urobilinogen 2 H Ur Leukocyte Esterase 4+ H Urine RBC 20-49 H Urine WBC 20-49 H Urine WBC Clumps Rare H Ur Squamous Epith Cells N/A Urine Bacteria Rare Hyaline Casts None Urine Mucus Rare Additional Results Results Comment: I reviewed clinical lab tests, radiology reports and obtained and summated medical records and have ordered follow up lab tests and imaging studies as needed for rehabilitation care. Assessment/Plan (1) Ischemic cardiomyopathy: (2) Atrial fibrillation, new onset: (3) ST elevation myocardial infarction (STEMI) of anterior wall: (4) Sleep-wake cycle disorder: (5) Impaired mobility and activities of daily living: Plan Mr. Anderson is an 78-year-old male admitted with multifactorial functional decline in the setting of ischemic cardiomyopathy status post mid LAD stenting for ST elevation ID (01/15) course complicated by hypotension, atrial fibrillation, and recently sundowning/delirium. -Chart reviewed, therapy notes reviewed as well. First eval 01/21. -Ambulatory 20' with min assist. Needs cues for safety, family endorses concern for early signs of dementia premorbidly but was still driving and left alone at home for some periods of time. -Discussed post acute care options, IRF, SNF, home with home health care at length with and daughter at bedside. I explained an admission to IRF would mean he would remain hospitalized and that typical duration of that stay is at least 5-14 days. They tell me patient would want to be at home rather than in the hospital or other facility and are concerned with his mood/behavior going forward if he's not with family. I explained that events like last night are common in hospitalized patients and may resolve with med adjustments, which they understand. However, they really want him home and I recommended at least another day or two in hospital with regulation of sleep/wake cycle then possibly home with home health care. If at that point , daughter and son feel are unable to care for him, would recommend SNF closer to home in [place]. I understand this may be a discrepancy in family wishes from days prior but perhaps events overnight made them more compelled to try to take him home. -All agreeable to plan of care -Thank you for consult. Patient was personally seen by me, Dr. aRi, on the day of encounter, reviewed the history and the relevant portions of the chart, including current orders, allied health and apprenticeship consultant notes, labs/imaging and performed diaz elements of exam and I formulated the plan of care and facilitated the medical decision making. I completed a substantive portion of this encounter, the medical decision making portion of this note in its entirety, including Allied health note review, nursing note review, apprenticeship consultant note review, discussion with nursing and case management, and more than 50% of my time was spent on counseling and coordination of care, time spent 40 minutes Documented By: Rogelio Rai MD 01/23/24 1209 Signed By: <Electronically signed by Rogelio Rai MD> 01/23/24 1243 [facility] Work Phone: 1(829) 112-226608-30-2024 Progress note Author Isaac Edwards [facility] January 23, 2024 12:01pm Note Date/Time January 23, 2024 11 :59am [facility] [address] [place] [address] Progress Note Signed Patient: Alex Anderson MR#: [id number] : 1945 Acct:[id number] Age/Sex: 78 / M Adm Date: 4 Loc: 4 Room: [address] [place] [address] Type: ADM IN Attending Dr: Nas Pruett DO Copies to: ~ Date of Service: 01/23/2024 Progress Narrative Note PROGRESS NOTE Progress Note: Patient had episode of agitation/sundowning last evening. His chronic indwelling villarreal catheter has been changed per nursing. He is stable from a respiratory perspective on room air. Pulmonary has nothing further to add. We will sign off. Please call if we can be of assistance. Documented By: Isaac Edwards MD 4 [id number] Signed By: <Electronically signed by MD Isaac Edwards> 01/23/24 1201 [facility] Work Phone: 1(664) 294-965508-30-2024 Consult note Author Rob Almazan [facility] January 23, 2024 3:21pm Note Date/Time January 23, 2024 8: 34am [facility] [address] [place] [address] Hospitalist Consult Note Signed Patient: Alex Anderson MR#: [id number] : 1945 Acct:[id number] Age/Sex: 78 / M Adm Date: 4 Loc: Room: [address] [place] [address] Type: ADM IN Attending Dr: Nas Pruett DO Copies to: MD Rob Richards MD W Scott Sheldon, DO~ HPI DATE OF CONSULTATION: 01/23/24 REQUESTING PROVIDER: Nas Pruett Consult Narrative Reason for Consult: Acute Confusion HPI: Mr. Anderson is an 78-year-old male with PMH of A-fib on amiodarone and Eliquis, ischemic CM, systolic CHF, who was admitted here for STEMI and had stenting of the LAD. Patient did require ICU stay due to hypotension, and slow up titrationof GDMT before being transferred to progressive care unit for further management. He is currently being evaluated by acute inpatient rehab due to hisPT/OT needs. Hospitalist team was consulted due to patient having worsening disorientation last night, requiring patient's to come in and assist with patient care. He was somewhat combative as well. Hospitalist on-call did give patient 25 mg Seroquel x 1 dose, patient has been sleeping for most of the night. On my assessment that 830 this a.m., patient isstill sleeping. He was recently transferred out of ICU 2 days prior, and has had more delirium since that time. Last night, patient did have repeated episodes where he got out of bed, was holding his Villarreal catheter in his hands and sat on the ground in his hospital room. He was then combative, and securityalert was called. He does appear to have some chronic cognitive issues, per patient's . Review of Systems Review of Systems Review of systems: 10 point ROS reviewed and is negative except for that which is noted above in HPI [facility] Medical History Villarreal catheter in place BPH (benign prostatic hyperplasia) Bladder cancer removed Difficulty swallowing pills COVID-19 history 01/14 Problem List clean-up per request of Phys. EHR Cmte COPD (chronic obstructive pulmonary disease) Osteoarthritis Kidney failure stage 1 Hyperlipidemia Obstructive uropathy Vitamin B 12 deficiency Problem List clean-up per request of Phys. EHR Cmte Folic acid deficiency Tobacco abuse quit april of 2023 Problem List clean-up per request of Phys. EHR Cmte Bilateral hydronephrosis TIA (transient ischemic attack) Problem List clean-up per request of Phys. EHR Cmte Dyslipidemia Essential hypertension Kidney stones history of Problem List clean-up per request of Phys. EHR Cmte Surgical History S/P cystoscopy Status post endovascular aneurysm repair (EVAR) History of bilateral cataract extraction Family History Father Brain tumor Mother Rheumatic fever Brother Bladder cancer Son Family history of mental disorder Legacy FamHx Problem: Diagnosed with Mental Illness Social History Smoking Status: Current every day smoker Tobacco Type: cigarettes Substance Use Type: None Substance Abuse Comment: No alcohol use Meds Medications and Allergies Allergies No Known Allergies Allergy (Verified 12/31/23 14:13) Home Medications albuterol sulfate 90 mcg/actuation aerosol inhaler 2 puff inhalation Q6HR PRN shortness of breath or wheezing 10/22/23 [History Confirmed 01/16/24] ferrous sulfate 142 mg (45 mg iron) tablet,extended release 142 mg PO DAILY 10/22/23 [History Confirmed 01/16/24] multivitamin 1 tab PO DAILY 10/22/23 [History Confirmed 01/16/24] inulin 2 gram chewable tablet (Fiber Gummies) 2 g PO DAILY 12/31/23 [History Confirmed 01/16/24] atorvastatin 80 mg tablet 80 mg PO QPM 30 days #30 tabs 01/16/24 [Rx] nitroglycerin 0.4 mg sublingual tablet 0.4 mg sublingual Q5M PRN chest pain 30 days #25 tabs 01/16/24 [Rx] ticagrelor 90 mg tablet (Brilinta) 90 mg PO BID 90 days #180 tabs 01/16/24 [Rx] amiodarone 200 mg tablet 200 mg PO BID 30 days #60 tabs 01/23/24 [Rx] apixaban 2.5 mg tablet (Eliquis) 2.5 mg PO BID 30 days #60 tabs 01/23/24 [Rx] clopidogrel 75 mg tablet 75 mg PO DAILY 30 days #30 tabs 01/23/24 [Rx] Active Medications: Active Medications Generic Name Dose Route Start Last Admin Trade Name Freq PRN Reason Stop Dose Admin Acetaminophen 1,000 mg 01/16/24 12:54 01/17/24 21:40 Acetaminophen 500 Mg Tablet PO 01/15/25 12:53 1,000 mg Q6H PRN Administration Fever or Pain Albuterol 2 puff 01/16/24 12:54 Albuterol Hfa 60 Puff/8 Gram Inhaler INHALATION 01/15/25 12:53 Q6HR PRN shortness of breath or wheezing Amiodarone HCl 200 mg 01/18/24 21:00 01/22/24 20:30 Amiodarone 200 Mg Tablet PO 01/17/25 20:59 200 mg BID BEKAH Administration Apixaban 2.5 mg 01/18/24 21:00 01/22/24 20:30 Apixaban 2.5 Mg Tablet PO 01/17/25 20:59 2.5 mg BID BEKAH Administration Aspirin 81 mg 01/18/24 09:00 01/22/24 08:49 Aspirin 81 Mg Tab.Chew PO 01/17/25 08:59 81 mg DAILY BEKAH Administration Atorvastatin Calcium 80 mg 01/16/24 21:00 01/22/24 20:30 Atorvastatin 80 Mg Tablet PO 01/15/25 20:59 80 mg QPM BEKAH Administration Carvedilol 3.125 mg 01/17/24 17:00 01/22/24 17:14 Carvedilol 3.125 Mg Tablet PO 01/16/25 16:59 Not Given BID.WITH.MEALS BEKAH Clopidogrel Bisulfate 75 mg 01/19/24 09:00 01/22/24 08:49 Clopidogrel Bisulfate 75 Mg Tablet PO 01/18/25 08:59 75 mg DAILY BEKAH Administration Ferrous Sulfate 324 mg 01/17/24 09:00 01/22/24 08:49 Ferrous Sulfate 324 Mg Tablet.Dr PO 01/16/25 08:59 324 mg DAILY BEKAH Administration Sodium Chloride 250 mls @ 999 mls/hr 01/16/24 12:54 01/19/24 05:11 0.9% Sodium Chloride 250 Ml IV 01/15/25 12:53 999 mls/hr PRN PRN Administration Hypotension Melatonin 3 mg 01/22/24 22:23 Melatonin 3 Mg Tablet PO 01/22/25 21:59 QHS PRN Insomnia Multivitamins 1 tab 01/17/24 09:00 01/22/24 08:49 Multivitamin 1 Tab Tablet PO 01/16/25 08:59 1 tab DAILY BEKAH Administration Potassium Chloride 40 meq 01/20/24 09:00 01/22/24 08:49 Potassium Chloride Er 20 Meq Tab.Er.Prt PO 01/19/25 08:59 40 meq DAILY BEKAH Administration Exam Physical Exam Vital Signs: Temp Pulse Resp BP Pulse Ox O2 Del Method O2 Flow Rate 98.2 F 60 18 111/72 96 Room Air 2 01/22/24 23:41 01/23/24 04:41 01/23/24 04:41 01/22/24 23:41 01/23/24 04:41 01/23/24 04:41 01/19/24 10:00 Narrative: Constitutional: Middle-aged WM, resting in bed sleeping HEENT: Moist mucous membranes, neck supple Cardiovascular: Irregular rhythm, normal rate, no M/R/G, normal S1 and S2, no JVD Respiratory: Lungs clear to auscultation bilaterally, no wheezes, rales or rhonchi GI: Soft, NTND, normoactive bowel sounds : Deferred Neuro: AAO x3, no focal deficits. Strength 5/5 throughout Extremities: No clubbing, cyanosis or edema Psych: Patient sleeping during my assessment Results - Hospitalist Consult Lab Results Labs: Laboratory Results - last 72 hr 01/21/24 04:38: Corrected WBC 8.8, Uncorrected WBC Count 8.8, RBC 4.33, Hgb 12.2 L, Hct 37.1 L, MCV 85.6, MCH 28.1, MCHC 32.9, RDW 15.6 H, Plt Count 221, MPV 8.4, Neut % (Auto) 64.3, Lymph % (Auto) 15.6, [place] % (Auto) 16.0, Eos % (Auto) 3.6, Baso % (Auto) 0.5, Nucleat RBC Rel Count 0.1, Neut # (Auto) 5.7, Lymph # (Auto) 1.4, [place] # (Auto) 1.4 H, Eos # (Auto) 0.3, Baso # (Auto) 0.0, PHA Creatinine Clear 46.56, Sodium 137, Potassium 3.9, Chloride 107, Carbon Dioxide 20.1 L, Anion Gap 13.8, BUN 35 H, Creatinine 1.59 H, Est GFR (CKD-EPI) 43.613, Glucose 121 H, Calcium 8.5 L 01/20/24 03:50: Magnesium Cancelled 01/20/24 03:50: Magnesium 2.1 Assessment & Plan Assessment/Plan (1) Sleep-wake cycle disorder: (2) Delirium: Plan Inpatient Delirium Increased agitation and combativeness yesterday. Suspect from recent change of environment from the ICU to progressive care unit. -Suggest low-dose Seroquel 12.5 mg nightly; monitor QTc given patient on amiodarone as well -Attempt to diminish inpatient delirium with environmental measures: TV on, lights on, blinds open, more personal interactions/re-orientation throughout the daytime, TV/lights off overnight.? Minimal interruptions overnight including vital signs checks STEMI status post PCI A-fib on amiodarone and Eliquis Ischemic CM/HFrEF Patient does appear to be stable from a cardiovascular standpoint. No cardiorespiratory complaints. -Cardiac medications for GDMT being managed by cardiology; Amiodarone, Eliquis, aspirin, atorvastatin, Coreg CODE STATUS: Full Code Documented By: Rob Almazan MD 4 [id number] Signed By: <Electronically signed by Rob Almazan MD> 01/23/24 4293 [facility] Work Phone: [phone]) 751-170108-30-2024 Progress note Author Jakob Lomax [facility] January 23, 2024 12:26am Note Date/Time January 23, 2024 12 :26am [facility] [address] [place] [id number] Progress Note Signed Patient: Alex Anderson MR#: [id number] : 1945 Acct:[id number] Age/Sex: 78 / M Adm Date: 4 Loc: Room: [address] [place] [address] Type: ADM IN Attending Dr: Nas Pruett DO Copies to: ~ Date of Service: 01/22/2024 Progress Narrative Note PROGRESS NOTE Progress Note: Patient had a security alert called earlier this evening after getting aggressive with PCT, I responded to the security alert and received full report from bedside and elevators inspector regarding the events. patient did fall but only to his butt and knees, he did not hit head head and there was no sign of any head trauma. By the time I arrived security had already responded and the situation was calming down. Within minutes the patient was back in bed and security at bedside, patients was notified and she drove to the hospital to stay the night. No further intervention was performed for the security alert as the situation had been de-escalated. Consult was placed to hospitalist service afterwards for evaluation for sundowning and the fall. Shortly after the arrived the patient remained calm but he was still awake, he was agreeable to medication and 25mg Seroquel was ordered in hopes to help keep the patient on a good sleep-wake cycle howeverif he does become agitated again tonight will plan to use Haldol 5mg IM, elevators inspector aware to notify me if needed. Formal consult to come tomorrow Documented By: Jakob Lomax DO 01/23/2421 Signed By: <Electronically signed by Jakob Lomax DO> 01/23/2425 [facility] Work Phone: [phone] 991-173708-29-2024 Progress note Author Teo Stokes [facility] January 22, 2024 2:01pm Note Date/Time January 22, 2024 2: 01pm [facility] [address] [place] [address] Cardiology Progress Note Signed Patient: Alex Anderson MR#: [id number] : 1945 Acct:[id number] Age/Sex: 78 / M Adm Date: 4 Loc: Room: [address] [place] [address] Type: ADM IN Attending Dr: Nas Pruett DO Copies to: ~ Date of Service: 01/22/2024 Subjective Principal diagnosis: Anterior ST elevation myocardial infarction Interval history: Patient is comfortable and has no complaints. His at the bedside, discussed the case with his .. He remains in atrial fibrillation with a heart rate under control. The patient is confused but is pleasant. Patient remains hypotensive and heart failure therapy cannot be initiated. The is not comfortable with the patient going home and a transitional care unit need toby found as the next step. cable swager and PT will be consulted Exam Physical Exam Vital Signs: Temp Pulse Resp BP Pulse Ox O2 Del Method O2 Flow Rate 98.4 F 64 16 98/65 L 96 Room Air 2 01/22/24 11:21 01/22/24 11:21 01/22/24 11:21 01/22/24 11:21 01/22/24 11:21 01/22/24 11:21 01/19/24 10:00 Const General: cooperative, comfortable and no acute distress Nutritional Appearance: overweight Orientation: alert and awake HEENT Head: normal to inspection, normocephalic and atraumatic Ears: hearing grossly impaired Nose: external nose normal Face and sinus: normal facial exam Eyes Conjunctivae: conjunctivae normal Pupils: PERRL Neck Neck: normal visual inspection, trachea midline and supple Neck mass: No Thyroid: thyroid normal Carotids: normal carotid upstroke Resp Effort & Inspection: normal respiratory effort Auscultation: clear to auscultation bilaterally Cardio Jugular venous pressure: no JVD Rate: regular rate Rhythm: abnormal rhythm irregularly irregular Heart Sounds: S1 normal and S2 normal GI Inspection: normal to inspection Palpation: soft and no hepatosplenomegaly Auscultation: normal bowel sounds Extrem General: no clubbing, cyanosis or edema Objective Labs 01/21/24 04:38 01/21/24 04:38 A&P - Cardiology (1) Atrial fibrillation, new onset: Assessment/Problem Details: Heart rate is controlled Plan: Continue amiodarone and Eliquis Code(s): I48.91 - Unspecified atrial fibrillation (2) ST elevation myocardial infarction (STEMI) of anterior wall: Assessment/Problem Details: Treated with stenting of the anterior descending artery acutely Plan: Continue dual antiplatelet therapy for the next week and then drop the aspirin since patient is on Eliquis Code(s): I21.09 - ST elevation (STEMI) myocardial infarction involving other coronary artery of anterior wall (3) Ischemic cardiomyopathy: Assessment/Problem Details: No clinical heart failure Plan: Will gradually reintroduce heart failure therapy, not quite ready for that yet Code(s): I25.5 - Ischemic cardiomyopathy (4) Stented coronary artery: Assessment/Problem Details: This involved anterior descending artery postacute anterior STEMI Plan: Continue aggressive risk factors modifications with high intensity statin and antiplatelet therapy Code(s): Z95.5 - Presence of coronary angioplasty implant and graft (5) Hypotension: Assessment/Problem Details: Asymptomatic Plan: Resume heart failure therapy gradually started with carvedilol when blood pressure remains above 100 mmHg systolic Code(s): I95.9 - Hypotension, unspecified (6) Chronic systolic heart failure: Assessment/Problem Details: No evident heart failure presently. Plan: Gradually resume GDMT, patient is not quite ready for that yet Code(s): I50.22 - Chronic systolic (congestive) heart failure Documented By: Teo Stokes MD, [facility] [id number] Signed By: <Electronically signed by [facility] Teo Stokes> 01/22/24 1402 [facility] Work Phone: 1(657) 275-858108-29-2024 Progress note Author Isaac Edwards [facility] January 22, 2024 1:58pm Note Date/Time January 22, 2024 1: 58pm [facility] [address] [place] [address] Pulmonology Progress Note Signed Patient: Alex Anderson MR#: [id number] : 1945 Acct:[id number] Age/Sex: 78 / M Adm Date: 4 Loc: 4P Room: [address] [place] [address] Type: ADM IN Attending Dr: Nas Pruett DO Copies to: ~ Date of Service: 01/22/2024 Exam Physical Exam Vital Signs: Temp Pulse Resp BP Pulse Ox O2 Del Method O2 Flow Rate 98.4 F 64 16 98/65 L 96 Room Air 2 01/22/24 11:21 01/22/24 11:21 01/22/24 11:21 01/22/24 11:21 01/22/24 11:21 01/22/24 11:21 01/19/24 10:00 Const General: cooperative Orientation: alert and awake HEENT Head: normal to inspection Ears: hearing grossly normal bilaterally, external ears normal and hearing grossly impaired Nose: external nose normal Face and sinus: normal facial exam Eyes Sclera: sclerae normal Neck Neck: normal visual inspection Chest Chest palpation & inspection: normal inspection of the chest Resp Effort & Inspection: normal respiratory effort Auscultation: clear to auscultation bilaterally, diminished lung sounds, no rales, no rhonchi and no wheezes Cardio Rate: regular rate Rhythm: regular rhythm and abnormal rhythm irregularly irregular Heart Sounds: S1 normal, S2 normal and no murmurs GI Inspection: normal to inspection Palpation: soft and nontender Rectal Exam: deferred General: deferred Skin General: no rashes or lesions noted (Warm and dry) Extrem General: no pedal edema Objective Intake and Output I&O - Last 24 Hours: Intake & Output 01/21/24 01/22/24 01/22/24 23:59 07:59 15:59 Intake Total 400 / 400 Output Total 450 / 450 Balance -50 / -50 Labs 01/21/24 04:38 01/21/24 04:38 Assessment/Plan Assessment/Plan (1) ST elevation myocardial infarction (STEMI) of anterior wall: (2) Abdominal aortic aneurysm without rupture: (3) Hypertensive nephropathy: (4) Iron deficiency: (5) Status post endovascular aneurysm repair (EVAR): (6) Hyperlipidemia: (7) Hypertension: (8) Chronic kidney disease, stage 3b: Plan Hospital day #6 for patient status post mid LAD stent placement for anterior ST segment elevation myocardial infarction with ejection fraction of 30 to 35% and hypotension with patient on low-dose dopamine. Patient is noted to have Enterococcus in the urine though with urinalysis which is not clearly indicativeof infection with concern for colonization of his chronic Villarreal catheter with patient requiring changes per urology due to prior history of bladder cancer andBPH. Patient is stable and has been transferred 4P. I have no new recommendations and will follow patient peripherally. Documented By: Isaac Edwards MD [id number] Signed By: <Electronically signed by MD Isaac Edwards> 01/22/24 135 [facility] Work Phone: 1(608) 481-417508-28-2024 Progress note Author Teo Stokes [facility] January 21, 2024 5:24pm Note Date/Time January 21, 2024 5: 24pm [facility] [address] [place] [address] Cardiology Progress Note Signed Patient: Alex Anderson MR#: [id number] : 1945 Acct:[id number] Age/Sex: 78 / M Adm Date: 4 Loc: 4 Room: [address] [place] [address] Type: ADM IN Attending Dr: Nas Pruett DO Copies to: ~ Date of Service: 01/21/2024 Subjective Principal diagnosis: Anterior ST elevation myocardial infarction Interval history: Patient is comfortable and has no complaints. His at the bedside, discussed the case with the and his son who was present as well.. He remains in atrial fibrillation with a heart rate under control. The patient is confused but is pleasant. Patient can be transferred to telemetry, will resume small dose of carvedilol at 3.125 mg twice daily Exam Physical Exam Vital Signs: Temp Pulse Resp BP Pulse Ox O2 Del Method O2 Flow Rate 98.3 F 73 16 92/61 L 98 Room Air 2 01/21/24 15:59 01/21/24 15:59 01/21/24 15:59 01/21/24 15:59 01/21/24 15:59 01/21/24 15:59 01/19/24 10:00 Const General: cooperative, comfortable and no acute distress Nutritional Appearance: overweight Orientation: alert and awake HEENT Head: normal to inspection, normocephalic and atraumatic Ears: hearing grossly impaired Nose: external nose normal Face and sinus: normal facial exam Eyes Conjunctivae: conjunctivae normal Pupils: PERRL Neck Neck: normal visual inspection, trachea midline and supple Neck mass: No Thyroid: thyroid normal Carotids: normal carotid upstroke Resp Effort & Inspection: normal respiratory effort Auscultation: clear to auscultation bilaterally Cardio Jugular venous pressure: no JVD Rate: regular rate Rhythm: abnormal rhythm irregularly irregular Heart Sounds: S1 normal and S2 normal GI Inspection: normal to inspection Palpation: soft and no hepatosplenomegaly Auscultation: normal bowel sounds Extrem General: no clubbing, cyanosis or edema Objective Labs 01/21/24 04:38 01/21/24 04:38 Labs: Laboratory Results - last 24 hr 01/21/24 04:38 Corrected WBC 8.8 Uncorrected WBC Count 8.8 RBC 4.33 Hgb 12.2 L Hct 37.1 L MCV 85.6 MCH 28.1 MCHC 32.9 RDW 15.6 H Plt Count 221 MPV 8.4 Neut % (Auto) 64.3 Lymph % (Auto) 15.6 [place] % (Auto) 16.0 Eos % (Auto) 3.6 Baso % (Auto) 0.5 Nucleat RBC Rel Count 0.1 Neut # (Auto) 5.7 Lymph # (Auto) 1.4 [place] # (Auto) 1.4 H Eos # (Auto) 0.3 Baso # (Auto) 0.0 PHA Creatinine Clear 46.56 Sodium 137 Potassium 3.9 Chloride 107 Carbon Dioxide 20.1 L Anion Gap 13.8 BUN 35 H Creatinine 1.59 H Est GFR (CKD-EPI) 43.613 Glucose 121 H Calcium 8.5 L A&P - Cardiology (1) Atrial fibrillation, new onset: Assessment/Problem Details: Heart rate is controlled Plan: Continue amiodarone and Eliquis Code(s): I48.91 - Unspecified atrial fibrillation (2) ST elevation myocardial infarction (STEMI) of anterior wall: Assessment/Problem Details: Treated with stenting of the anterior descending artery acutely Plan: Continue dual antiplatelet therapy for the next week and then drop the aspirin since patient is on Eliquis Code(s): I21.09 - ST elevation (STEMI) myocardial infarction involving other coronary artery of anterior wall (3) Ischemic cardiomyopathy: Assessment/Problem Details: No clinical heart failure Plan: Will gradually reintroduce heart failure therapy, Coreg 3.125 mg twice daily will be resumed and will assess blood pressure tolerance Code(s): I25.5 - Ischemic cardiomyopathy (4) Stented coronary artery: Assessment/Problem Details: This involved anterior descending artery postacute anterior STEMI Plan: Continue aggressive risk factors modifications with high intensity statin and antiplatelet therapy Code(s): Z95.5 - Presence of coronary angioplasty implant and graft (5) Hypotension: Assessment/Problem Details: Seem to have resolved off of dopamine Plan: Resume heart failure therapy gradually started with carvedilol Code(s): I95.9 - Hypotension, unspecified (6) Chronic systolic heart failure: Assessment/Problem Details: No evident heart failure presently. Plan: Gradually resume GDMT Code(s): I50.22 - Chronic systolic (congestive) heart failure Documented By: Teo Stokes MD, [facility] 4 [id number] Signed By: <Electronically signed by [facility] Teo Stokes> 01/21/24 1724 [facility] Work Phone: 1(472) 625-598708-28-2024 Progress note Author Isaac Edwards [facility] January 21, 2024 11:45am Note Date/Time January 21, 2024 11 :31am [facility] [address] [place] [address] Pulmonology Progress Note Signed Patient: Alex Anderson MR#: [id number] : 1945 Acct:[id number] Age/Sex: 78 / M Adm Date: 4 Loc: Room: [address] [place] [address] Type: ADM IN Attending Dr: Nas Pruett DO Copies to: ~ Date of Service: 01/21/2024 Subjective Subjective Narrative: Patient is awake without respiratory complaints and on room air. Exam Physical Exam Vital Signs: Temp Pulse Resp BP Pulse Ox O2 Del Method O2 Flow Rate 98.8 F 69 24 103/65 97 Room Air 2 01/21/24 07:00 01/21/24 11:00 01/21/24 11:00 01/21/24 11:00 01/21/24 11:00 01/21/24 11:01/19/24 10:00 Const General: cooperative Orientation: alert and awake HEENT Head: normal to inspection Ears: hearing grossly normal bilaterally, external ears normal and hearing grossly impaired Nose: external nose normal Face and sinus: normal facial exam Eyes Sclera: sclerae normal Neck Neck: normal visual inspection Chest Chest palpation & inspection: normal inspection of the chest Resp Effort & Inspection: normal respiratory effort Auscultation: clear to auscultation bilaterally, diminished lung sounds, no rales, no rhonchi and no wheezes Cardio Rate: regular rate Rhythm: regular rhythm and abnormal rhythm irregularly irregular Heart Sounds: S1 normal, S2 normal and no murmurs GI Inspection: normal to inspection Palpation: soft and nontender Rectal Exam: deferred General: deferred Skin General: no rashes or lesions noted (Warm and dry) Extrem General: no pedal edema Objective Intake and Output I&O - Last 24 Hours: Intake & Output 01/20/24 01/21/24 01/21/24 23:59 07:59 15:59 Intake Total 150 / 450 200 / 200 Output Total 300 / 925 300 / 300 Balance -150 / -475 -100 / -100 Weight 217 lb 2.485 oz Labs 01/21/24 04:38 01/21/24 04:38 Assessment/Plan Assessment/Plan (1) ST elevation myocardial infarction (STEMI) of anterior wall: (2) Abdominal aortic aneurysm without rupture: (3) Hypertensive nephropathy: (4) Iron deficiency: (5) Status post endovascular aneurysm repair (EVAR): (6) Hyperlipidemia: (7) Hypertension: (8) Chronic kidney disease, stage 3b: Plan Hospital day #5 for patient status post mid LAD stent placement for anterior ST segment elevation myocardial infarction with ejection fraction of 30 to 35% and hypotension with patient on low-dose dopamine. Patient is noted to have Enterococcus in the urine though with urinalysis which is not clearly indicativeof infection with concern for colonization of his chronic Villarreal catheter with patient requiring changes per urology due to prior history of bladder cancer andBPH. Consult will be placed and certainly we can try to replace Villarreal if urology is aware and is available should we be unsuccessful in placing Villarreal. Patient is off dopamine and is off spironolactone, BROOKE inhibitor, and Coreg at this time and will defer to cardiology. Patient is stable for transfer out of the ICU from a critical care medicine perspective. Documented By: Isaac Edwards MD [id number] Signed By: <Electronically signed by MD Isaac Edwards> 01/21/24 8855 [facility] Work Phone: 1(495) 404-408808-27-2024 Progress note Author Teo Stokes [facility] January 20, 2024 3:58pm Note Date/Time January 20, 2024 3: 58pm [facility] [address] [place] [address] Cardiology Progress Note Signed Patient: Alex Anderson MR#: [id number] : 1945 Acct:[id number] Age/Sex: 78 / M Adm Date: 4 Loc: Room: [address] [place] [address] Type: ADM IN Attending Dr: Nas Pruett DO Copies to: ~ Date of Service: 01/20/2024 Subjective Principal diagnosis: Anterior ST elevation myocardial infarction Interval history: Patient is pleasantly comfortable and has no complaints. His at the bedside. Dopamine drip has been discontinued and the patient tolerated that fairly well. He remains in atrial fibrillation with a heart rate under control. The patient is confused but is pleasant. The case was discussed and explained to the patient's . Exam Physical Exam Vital Signs: Temp Pulse Resp BP Pulse Ox O2 Del Method O2 Flow Rate 98 F 74 18 108/69 97 Room Air 2 01/20/24 12:00 01/20/24 15:00 01/20/24 15:00 01/20/24 15:00 01/20/24 15:00 01/20/24 15:00 01/19/24 10:00 Const General: cooperative, comfortable and no acute distress Nutritional Appearance: overweight Orientation: alert and awake HEENT Head: normal to inspection, normocephalic and atraumatic Ears: hearing grossly impaired Nose: external nose normal Face and sinus: normal facial exam Eyes Conjunctivae: conjunctivae normal Pupils: PERRL Neck Neck: normal visual inspection, trachea midline and supple Neck mass: No Thyroid: thyroid normal Carotids: normal carotid upstroke Resp Effort & Inspection: normal respiratory effort Auscultation: clear to auscultation bilaterally Cardio Jugular venous pressure: no JVD Rate: regular rate Rhythm: abnormal rhythm irregularly irregular Heart Sounds: S1 normal and S2 normal GI Inspection: normal to inspection Palpation: soft and no hepatosplenomegaly Auscultation: normal bowel sounds Extrem General: no clubbing, cyanosis or edema Objective Labs 01/20/24 03:50 01/20/24 03:50 Labs: Laboratory Results - last 24 hr 01/20/24 01/20/24 03:50 03:50 Corrected WBC 9.5 Uncorrected WBC Count 9.5 RBC 4.38 Hgb 12.5 L Hct 37.6 L MCV 85.9 MCH 28.5 MCHC 33.2 RDW 15.4 H Plt Count 202 MPV 8.3 Neut % (Auto) 71.9 Lymph % (Auto) 11.8 [place] % (Auto) 14.3 Eos % (Auto) 1.7 Baso % (Auto) 0.3 Nucleat RBC Rel Count 0.0 Neut # (Auto) 6.8 Lymph # (Auto) 1.1 [place] # (Auto) 1.4 H Eos # (Auto) 0.2 Baso # (Auto) 0.0 PHA Creatinine Clear 49.40 Sodium 135 L Potassium 3.5 Chloride 107 Carbon Dioxide 19.5 L Anion Gap 12.0 BUN 32 H Creatinine 1.50 H Est GFR (CKD-EPI) 46.772 Glucose 136 H Calcium 8.4 L Magnesium 2.1 Cancelled A&P - Cardiology (1) Atrial fibrillation, new onset: Assessment/Problem Details: Heart rate is controlled Plan: Continue amiodarone and Eliquis Code(s): I48.91 - Unspecified atrial fibrillation (2) ST elevation myocardial infarction (STEMI) of anterior wall: Assessment/Problem Details: Treated with stenting of the anterior descending artery acutely Plan: Continue dual antiplatelet therapy for the next week and then drop the aspirin since patient is on Eliquis Code(s): I21.09 - ST elevation (STEMI) myocardial infarction involving other coronary artery of anterior wall (3) Ischemic cardiomyopathy: Assessment/Problem Details: No clinical heart failure Plan: Will gradually reintroduce heart failure therapy one medicine at a time starting tomorrow, will determine day by day what to introduce and at what dose Code(s): I25.5 - Ischemic cardiomyopathy (4) Stented coronary artery: Assessment/Problem Details: This involved anterior descending artery postacute anterior STEMI Plan: Continue aggressive risk factors modifications with high intensity statin and antiplatelet therapy Code(s): Z95.5 - Presence of coronary angioplasty implant and graft (5) Hypotension: Assessment/Problem Details: Seem to have resolved off of dopamine Plan: Hold off on heart failure therapy Code(s): I95.9 - Hypotension, unspecified (6) Chronic systolic heart failure: Assessment/Problem Details: No evident heart failure presently. Plan: If blood pressure remains stable tomorrow morning heart failure therapy will be resumed one medicine at a time Code(s): I50.22 - Chronic systolic (congestive) heart failure Documented By: Teo Stokes MD, [facility] 4 [id number] Signed By: <Electronically signed by MD NJ Stokes> 01/20/24 1556 [facility] Work Phone: 1(793) 559-644508-27-2024 Progress note Author Isaac Edwards [facility] January 20, 2024 12:59pm Note Date/Time January 20, 2024 8: 53am [facility] [address] [place] [address] Pulmonology Progress Note Signed Patient: Alex Anderson MR#: [id number] : 1945 Acct:[id number] Age/Sex: 78 / M Adm Date: 4 Loc: Room: [address] [place] [address] Type: ADM IN Attending Dr: Nas Pruett DO Copies to: ~ Date of Service: 01/20/2024 Subjective Subjective Narrative: Patient is up and sitting in chair at the time of my visit this morning with dopamine off with systolic blood pressures in the high 80s to 100s. Patient denies any dizziness nor lightheadedness. He does admit to dyspnea with exertion. Exam Physical Exam Vital Signs: Temp Pulse Resp BP Pulse Ox O2 Del Method O2 Flow Rate 98.1 F 76 24 88/62 L 99 Room Air 2 01/20/24 08:00 01/20/24 08:01/20/24 08:00 01/20/24 08:01/20/24 08:00 01/20/24 08:00 01/19/24 10:00 Const General: cooperative Orientation: alert and awake HEENT Head: normal to inspection Ears: hearing grossly normal bilaterally, external ears normal and hearing grossly impaired Nose: external nose normal Face and sinus: normal facial exam Eyes Sclera: sclerae normal Neck Neck: normal visual inspection Chest Chest palpation & inspection: normal inspection of the chest Resp Effort & Inspection: normal respiratory effort Auscultation: clear to auscultation bilaterally, diminished lung sounds, no rales, no rhonchi and no wheezes Cardio Rate: regular rate Rhythm: regular rhythm and abnormal rhythm irregularly irregular Heart Sounds: S1 normal, S2 normal and no murmurs GI Inspection: normal to inspection Palpation: soft and nontender Rectal Exam: deferred General: deferred Skin General: no rashes or lesions noted (Warm and dry) Extrem General: no pedal edema Objective Intake and Output I&O - Last 24 Hours: Intake & Output 01/19/24 01/20/24 01/20/24 23:59 07:59 15:59 Output Total 250 / 950 375 / 375 Balance -250 / -230 -375 / -375 Weight 217 lb 13.067 oz Labs 01/20/24 03:50 01/20/24 03:50 Microbiology Micro: Microbiology 3 01/17/24 14:45 Urine Culture - Final Villarreal [place] Enterococcus faecalis Assessment/Plan Assessment/Plan (1) ST elevation myocardial infarction (STEMI) of anterior wall: (2) Abdominal aortic aneurysm without rupture: (3) Hypertensive nephropathy: (4) Iron deficiency: (5) Status post endovascular aneurysm repair (EVAR): (6) Hyperlipidemia: (7) Hypertension: (8) Chronic kidney disease, stage 3b: Plan Hospital day #4 for patient status post mid LAD stent placement for anterior ST segment elevation myocardial infarction with ejection fraction of 30 to 35% and hypotension with patient on low-dose dopamine. Patient is noted to have Enterococcus in the urine though with urinalysis which is not clearly indicativeof infection with concern for colonization of his chronic Villarreal catheter with patient requiring changes per urology due to prior history of bladder cancer. Patient has been taken off dopamine. I have no further recommendations at this time. Patient is stable on room air. We will follow peripherally and be available as needed. Documented By: Isaac Edwards MD [id number] Signed By: <Electronically signed by MD Isaac Edwards> 01/20/24 7785 [facility] Work Phone: 1(325) 780-254708-26-2024 Progress note Author Isaac Edwards [facility] January 19, 2024 1:20pm Note Date/Time January 19, 2024 9: 06am [facility] [address] [place] [address] Pulmonology Progress Note Signed with Addlaisha Patient: Alex Anderson MR#: [id number] : 1945 Acct:[id number] Age/Sex: 78 / M Adm Date: 4 Loc: Room: [address] [place] [address] Type: ADM IN Attending Dr: Nas Pruett DO Copies to: ~ ADDENDUM1 Given finding of Enterococcus faecalis from urine culture of January 17, 2024 with relatively benign appearing urinalysis, we will change the patient's chronic indwelling Villarreal with concern for colonization. Note that the patient was scheduled to have a Villarreal catheter change tomorrow. Addendum Documented By: MD Isaac Edwards 01/19/241319 Addendum Signed By: <Electronically signed by MD Isaac Edwards> 01/19/241319 Date of Service: 01/19/2024 Subjective Subjective Narrative: Patient denies significant respiratory complaints at the time of my evaluation. He remains on dopamine at 2.5 mcg/kg/min. Exam Physical Exam Vital Signs: Temp Pulse Resp BP Pulse Ox O2 Del Method O2 Flow Rate 98.7 F 76 19 92/60 L 93 L Nasal Cannula 2 01/19/24 04:00 01/19/24 06:00 01/19/24 06:00 01/19/24 06:00 01/19/24 06:00 01/19/24 08:00 01/19/24 08:00 Const General: cooperative Orientation: alert and awake HEENT Head: normal to inspection Ears: external ears normal and hearing grossly impaired Nose: external nose normal Face and sinus: normal facial exam Eyes Sclera: sclerae normal Neck Neck: normal visual inspection Chest Chest palpation & inspection: normal inspection of the chest Resp Effort & Inspection: normal respiratory effort Auscultation: clear to auscultation bilaterally, diminished lung sounds, no rales, no rhonchi and no wheezes Cardio Rate: regular rate Rhythm: abnormal rhythm irregularly irregular Heart Sounds: S1 normal, S2 normal and no murmurs GI Inspection: normal to inspection Palpation: soft and nontender Rectal Exam: deferred General: deferred Skin General: no rashes or lesions noted (Warm and dry) Extrem General: no pedal edema Objective Intake and Output I&O - Last 24 Hours: Intake & Output 01/18/24 01/19/24 01/19/24 23:59 07:59 15:59 Intake Total 200 / 450 400 / 400 Output Total 350 / 1300 300 / 300 Balance -150 / -850 100 / 100 Weight 218 lb 4.122 oz Labs 01/19/24 04:14 01/19/24 04:14 Microbiology Micro: Microbiology 3 01/17/24 14:45 Urine Culture - Preliminary [place] Enterococcus faecalis Assessment/Plan Assessment/Plan (1) ST elevation myocardial infarction (STEMI) of anterior wall: (2) Abdominal aortic aneurysm without rupture: (3) Hypertensive nephropathy: (4) Iron deficiency: (5) Status post endovascular aneurysm repair (EVAR): (6) Hyperlipidemia: (7) Hypertension: (8) Chronic kidney disease, stage 3b: Plan Hospital day #3 for patient status post mid LAD stent placement for anterior ST segment elevation myocardial infarction with ejection fraction of 30 to 35% and hypotension with patient on low-dose dopamine. Patient is stable from a respiratory perspective and will defer to cardiology regarding management of dopamine and afterload reduction. Patient is on anticoagulation for his atrial fibrillation. I have no new recommendations. We will follow peripherally and be available as needed. Documented By: Isaac Edwards MD [id number] Signed By: <Electronically signed by MD Isaac Edwards> 01/19/[address] [place] [address] Work Phone: 1([phone]) 234-750208-26-2024 Progress note Author Teo Stokes [facility] January 19, 2024 12:11pm Note Date/Time January 19, 2024 12 :11pm [facility] [address] [place] [address] Cardiology Progress Note Signed Patient: Alex Anderson MR#: [id number] : 1945 Acct:[id number] Age/Sex: 78 / M Adm Date: 4 Loc: Room: [address] [place] [address] Type: ADM IN Attending Dr: Nas Pruett DO Copies to: ~ Date of Service: 01/19/2024 Subjective Principal diagnosis: Anterior ST elevation myocardial infarction Interval history: Patient is pleasantly comfortable and has no complaints. His at the bedside. He remains on dopamine maintaining systolic blood pressure just under 100 mmHg. He remains in atrial fibrillation with a heart rate under control. The patient is confused but is pleasant. The case was discussed and explained to the patient's . Due to hypotension and need for dopamine vasoactive medshave been held. Exam Physical Exam Vital Signs: Temp Pulse Resp BP Pulse Ox O2 Del Method O2 Flow Rate 98.7 F 87 19 96/61 L 96 Room Air 2 01/19/24 04:00 01/19/24 11:00 01/19/24 11:00 01/19/24 11:00 01/19/24 11:00 01/19/24 11:00 01/19/24 10:00 Const General: cooperative, comfortable and no acute distress Nutritional Appearance: overweight Orientation: alert and awake HEENT Head: normal to inspection, normocephalic and atraumatic Ears: hearing grossly impaired Nose: external nose normal Face and sinus: normal facial exam Eyes Conjunctivae: conjunctivae normal Pupils: PERRL Neck Neck: normal visual inspection, trachea midline and supple Neck mass: No Thyroid: thyroid normal Carotids: normal carotid upstroke Resp Effort & Inspection: normal respiratory effort Auscultation: clear to auscultation bilaterally Cardio Jugular venous pressure: no JVD Rate: regular rate Rhythm: abnormal rhythm irregularly irregular Heart Sounds: S1 normal and S2 normal GI Inspection: normal to inspection Palpation: soft and no hepatosplenomegaly Auscultation: normal bowel sounds Extrem General: no clubbing, cyanosis or edema Objective Labs 01/19/24 04:14 01/19/24 04:14 Labs: Laboratory Results - last 24 hr 01/19/24 04:14 Corrected WBC 11.0 H Uncorrected WBC Count 11.0 H RBC 4.30 Hgb 12.3 L Hct 37.1 L MCV 86.5 MCH 28.6 MCHC 33.0 RDW 15.6 H Plt Count 165 MPV 8.9 Neut % (Auto) 78.5 Lymph % (Auto) 8.8 [place] % (Auto) 11.9 Eos % (Auto) 0.4 Baso % (Auto) 0.4 Nucleat RBC Rel Count 0.1 Neut # (Auto) 8.6 H Lymph # (Auto) 1.0 [place] # (Auto) 1.3 H Eos # (Auto) 0.0 Baso # (Auto) 0.0 PHA Creatinine Clear 42.28 Sodium 134 L Potassium 3.6 Chloride 106 Carbon Dioxide 19.9 L Anion Gap 11.7 BUN 32 H Creatinine 1.62 H Est GFR (CKD-EPI) 42.646 Glucose 145 H Calcium 8.5 L A&P - Cardiology (1) Atrial fibrillation, new onset: Plan: Continue amiodarone and Eliquis Code(s): I48.91 - Unspecified atrial fibrillation (2) ST elevation myocardial infarction (STEMI) of anterior wall: Assessment/Problem Details: Treated with stenting of the anterior descending artery acutely Plan: Continue dual antiplatelet therapy for the next week and then drop the aspirin since patient is on Eliquis Code(s): I21.09 - ST elevation (STEMI) myocardial infarction involving other coronary artery of anterior wall (3) Ischemic cardiomyopathy: Assessment/Problem Details: No clinical heart failure Plan: Once hemodynamically stable resume heart failure therapy Code(s): I25.5 - Ischemic cardiomyopathy (4) Stented coronary artery: Assessment/Problem Details: This involved anterior descending artery postacute anterior STEMI Plan: Continue aggressive risk factors modifications with high intensity statin and antiplatelet therapy Code(s): Z95.5 - Presence of coronary angioplasty implant and graft (5) Hypotension: Plan: Continue dopamine for the time being Code(s): I95.9 - Hypotension, unspecified (6) Chronic systolic heart failure: Assessment/Problem Details: No evident heart failure presently. Plan: Due to hypotension standard heart failure therapy cannot be initiated Code(s): I50.22 - Chronic systolic (congestive) heart failure Documented By: Teo Stokes MD, [facility] 4 [id number] Signed By: <Electronically signed by MD NJ Stokes> 01/19/24 1211 [facility] Work Phone: 1(187) 825-570008-25-2024 Progress note Author Justina Lara [facility] January 18, 2024 3:10pm Note Date/Time January 18, 2024 3: 10pm [facility] [address] [place], [place] [id number] Pulmonology Progress Note Signed Patient: Alex Anderson MR#: [id number] : 1945 Acct:[id number] Age/Sex: 78 / M Adm Date: 4 Loc: Room: 4I0262-8 Type: ADM IN Attending Dr: Nas Pruett DO Copies to: ~ Date of Service: 01/18/2024 Subjective Subjective Narrative: He continued to have intermittent hypotension he was given small fluid boluses overnight and was started on low-dose dopamine. He has intermittent A-fib. He denies chest pain no dyspnea he complains of chronic nausea. His leukocytosis improved. His urine analysis has negative nitrate and less likely UTI Exam Physical Exam Vital Signs: Temp Pulse Resp BP Pulse Ox O2 Del Method O2 Flow Rate 98.7 F 87 18 94/60 L 93 L Room Air 2 01/18/24 04:00 01/18/24 08:00 01/18/24 08:00 01/18/24 08:00 01/18/24 08:00 01/18/24 08:00 01/18/24 07:00 Narrative: General awake and alert no distress HEENT clear oropharynx Cardiovascular regular rate, normal S1-S2 Lungs clear to auscultation Abdomen soft nontender Extremity no edema Objective Intake and Output I&O - Last 24 Hours: Intake & Output 01/17/24 01/18/24 01/18/24 23:59 07:59 15:59 Intake Total 400 / 1190 Output Total 250 / 1400 650 / 950 300 / 950 Balance 150 / -210 -650 / -950 -300 / -950 Weight 98.6 kg Labs 01/18/24 05:36 01/18/24 05:36 Microbiology Micro: Microbiology 3 01/17/24 14:45 Urine Culture - Preliminary [place] Enterococcus faecalis Assessment/Plan Assessment/Plan (1) ST elevation myocardial infarction (STEMI) of anterior wall: (2) Abdominal aortic aneurysm without rupture: (3) Hypertensive nephropathy: (4) Iron deficiency: (5) Status post endovascular aneurysm repair (EVAR): (6) Hyperlipidemia: (7) Hypertension: (8) Chronic kidney disease, stage 3b: Plan 01/15 cardiology are managing post PCI/stent in LAD for acute ID. He is on beta- maldonado, antiplatelets, statin, antihypertensive medication per cardiology Monitor creatinine post cath Bronchodilators as needed for COPD Chest x-ray in a.m. DVT prophylaxis Lovenox 01/16 Blood pressure medications were held this morning, adjust per cardiology He does have elevated white count, no evidence of infection. Likely reactive. He does have history of UTI check urinalysis and culture H&H has been fairly stable he is on antiplatelet therapy 01/17 His blood pressure medications are on hold for hypotension. Continue low-dose dopamine and titrate as needed Leukocytosis improved. UA negative nitrate, I will hold off antibiotic and follow cultures. Hypotension is likely cardiac H&H has been stable He was started on amiodarone and Eliquis for A-fib. Cardiology is following Documented By: Justina Lara MD 01/18/24 1507 Signed By: <Electronically signed by Justina Lara MD> 01/18/24 1510 [facility] Work Phone: 1([phone]) 268-308808-25-2024 Progress note Author Ana Castro [facility] January 18, 2024 12:49pm Note Date/Time January 18, 2024 12 :50pm [facility] [address] [place] [address] Cardiology Progress Note Signed Patient: Alex Anderson MR#: [id number] : 1945 Acct:[id number] Age/Sex: 78 / M Adm Date: 4 Loc: Room: [address] [place] [address] Type: ADM IN Attending Dr: Nas Pruett DO Copies to: ~ Date of Service: 01/18/2024 Subjective Interval history: Patient went to atrial fibrillation last night. BP on the low range started on low-dose dopamine. Lisinopril and Coreg was held Exam Physical Exam Vital Signs: Temp Pulse Resp BP Pulse Ox O2 Del Method O2 Flow Rate 98.7 F 87 18 94/60 L 93 L Room Air 2 01/18/24 04:00 01/18/24 08:00 01/18/24 08:00 01/18/24 08:00 01/18/24 08:00 01/18/24 08:00 01/18/24 07:00 Const General: cooperative Neck Neck: supple Lymphatic: no lymphadenopathy noted Resp Effort & Inspection: normal respiratory effort Auscultation: clear to auscultation bilaterally Cardio Palpation: normal PMI Rate: regular rate Rhythm: regular rhythm Heart Sounds: S1 normal and S2 normal Skin General: dry skin Extrem General: full ROM and no clubbing, cyanosis or edema Objective Labs 01/18/24 05:36 01/18/24 05:36 Labs: Laboratory Results - last 24 hr 01/17/24 01/17/24 01/17/24 14:45 16:28 21:51 Corrected WBC Uncorrected WBC Count RBC Hgb Hct MCV MCH MCHC RDW Plt Count MPV Neut % (Auto) Lymph % (Auto) [place] % (Auto) Eos % (Auto) Baso % (Auto) Nucleat RBC Rel Count Neut # (Auto) Lymph # (Auto) [place] # (Auto) Eos # (Auto) Baso # (Auto) PHA Creatinine Clear Sodium Potassium Chloride Carbon Dioxide Anion Gap BUN Creatinine Est GFR (CKD-EPI) Glucose POC Glucose 115 126 Calcium Urine Color Light-yellow Urine Appearance Cloudy A Urine pH 6.0 Ur Specific [place] 1.018 Urine Protein Trace H Urine Glucose (UA) Normal Urine Ketones Negative Urine Occult Blood Trace H Urine Nitrite Negative Urine Bilirubin Negative Urine Urobilinogen Normal Ur Leukocyte Esterase 3+ H Urine RBC 3-4 Urine WBC 10-19 H Ur Squamous Epith Cells 1-2 Urine Bacteria 2+ H Hyaline Casts None Urine Mucus Rare 01/18/24 05:36 Corrected WBC 12.1 H Uncorrected WBC Count 12.1 H RBC 4.47 Hgb 12.7 L Hct 38.2 L MCV 85.4 MCH 28.5 MCHC 33.4 RDW 15.9 H Plt Count 131 L MPV 9.3 Neut % (Auto) 75.1 Lymph % (Auto) 11.5 [place] % (Auto) 12.8 Eos % (Auto) 0.2 Baso % (Auto) 0.4 Nucleat RBC Rel Count 0.0 Neut # (Auto) 9.1 H Lymph # (Auto) 1.4 [place] # (Auto) 1.5 H Eos # (Auto) 0.0 Baso # (Auto) 0.0 PHA Creatinine Clear 46.65 Sodium 136 Potassium 3.7 Chloride 107 Carbon Dioxide 21.2 Anion Gap 11.5 BUN 29 H Creatinine 1.59 H Est GFR (CKD-EPI) 43.613 Glucose 125 H POC Glucose Calcium 8.7 Urine Color Urine Appearance Urine pH Ur Specific [place] Urine Protein Urine Glucose (UA) Urine Ketones Urine Occult Blood Urine Nitrite Urine Bilirubin Urine Urobilinogen Ur Leukocyte Esterase Urine RBC Urine WBC Ur Squamous Epith Cells Urine Bacteria Hyaline Casts Urine Mucus A&P - Cardiology (1) ST elevation myocardial infarction (STEMI) of anterior wall: Code(s): I21.09 - ST elevation (STEMI) myocardial infarction involving other coronary artery of anterior wall (2) Abdominal aortic aneurysm without rupture: Qualifiers: Abdominal aorta location: unspecified Qualified Code(s): I71.40 - Abdominal aortic aneurysm, without rupture, unspecified Code(s): I71.40 - Abdominal aortic aneurysm, without rupture, unspecified (3) Hypertensive nephropathy: Code(s): I12.9 - Hypertensive chronic kidney disease with stage 1 through stage 4 chronickidney disease, or unspecified chronic kidney disease (4) Iron deficiency: Code(s): E61.1 - Iron deficiency (5) Status post endovascular aneurysm repair (EVAR): Code(s): Z98.890 - Other specified postprocedural states; Z86.79 - Personal history of other diseases of the circulatory system (6) Hyperlipidemia: Qualifiers: Hyperlipidemia type: unspecified Qualified Code(s): E78.5 - Hyperlipidemia, unspecified Code(s): E78.5 - Hyperlipidemia, unspecified (7) Hypertension: Assessment/Problem Details: Patient is now hypotensive requiring small dose of dopamine Code(s): I10 - Essential (primary) hypertension (8) Chronic kidney disease, stage 3b: Code(s): N18.32 - Chronic kidney disease, stage 3b (9) Atrial fibrillation, new onset: Code(s): I48.91 - Unspecified atrial fibrillation Plan 1. Continue to hold lisinopril, Coreg and HCTZ. Low-dose dopamine 2. Will switch to Plavix and Eliquis. Risk, benefit alternative anticoagulation reviewed with family 3. Encourage patient to quit smoking 4. Will use amiodarone and hope to restore sinus mechanism Documented By: Ana Castro MD 01/18/241246 Signed By: <Electronically signed by MD Ana Castro> 01/18/24 1249 [facility] Work Phone: 1([phone]) 492-489908-24-2024 Progress note Author Ana Castro [facility] January 17, 2024 12:43pm Note Date/Time January 17, 2024 12 :43pm [facility] [address] [place] [address] Cardiology Progress Note Signed Patient: Alex Anderson MR#: [id number] : 1945 Acct:[id number] Age/Sex: 78 / M Adm Date: 4 Loc: Room: [address] [place] [address] Type: ADM IN Attending Dr: Nas Pruett DO Copies to: ~ Date of Service: 01/17/2024 Subjective Interval history: Patient without chest pain. Very hard of hearing. Significant troponin rise. LVEF around 30% Exam Physical Exam Vital Signs: Temp Pulse Resp BP Pulse Ox O2 Del Method O2 Flow Rate 98.7 F 92 20 107/68 93 L Room Air 3 01/17/24 03:38 01/17/24 11:00 01/17/24 11:00 01/17/24 11:00 01/17/24 11:00 01/17/24 11:00 01/16/24 17:22 Const General: cooperative Neck Neck: supple Lymphatic: no lymphadenopathy noted Resp Effort & Inspection: normal respiratory effort Auscultation: clear to auscultation bilaterally Cardio Palpation: normal PMI Rate: regular rate Rhythm: regular rhythm Heart Sounds: S1 normal and S2 normal Skin General: dry skin Extrem General: full ROM and no clubbing, cyanosis or edema Objective Labs 01/17/24 04:37 01/17/24 04:37 Labs: Laboratory Results - last 24 hr 01/16/24 01/16/24 01/16/24 13:03 14:47 17:12 Corrected WBC Uncorrected WBC Count RBC Hgb Hct MCV MCH MCHC RDW Plt Count MPV Neut % (Auto) Lymph % (Auto) [place] % (Auto) Eos % (Auto) Baso % (Auto) Nucleat RBC Rel Count Neut # (Auto) Lymph # (Auto) [place] # (Auto) Eos # (Auto) Baso # (Auto) Platelet Estimate Plt Morphology Comment RBC Morphology PHA Creatinine Clear Sodium Potassium Chloride Carbon Dioxide Anion Gap BUN Creatinine Est GFR (CKD-EPI) Glucose POC Glucose POC Glucose Comment Calcium Troponin I High Sens 16934.4 H* 483604.2 H* 051845.4 H* Triglycerides Cholesterol LDL Cholesterol, Calc VLDL Cholesterol HDL Cholesterol Cholesterol/HDL Ratio 01/16/24 01/16/24 01/16/24 18:37 19:15 21:31 Corrected WBC Uncorrected WBC Count RBC Hgb Hct MCV MCH MCHC RDW Plt Count MPV Neut % (Auto) Lymph % (Auto) [place] % (Auto) Eos % (Auto) Baso % (Auto) Nucleat RBC Rel Count Neut # (Auto) Lymph # (Auto) [place] # (Auto) Eos # (Auto) Baso # (Auto) Platelet Estimate Plt Morphology Comment RBC Morphology PHA Creatinine Clear Sodium Potassium Chloride Carbon Dioxide Anion Gap BUN Creatinine Est GFR (CKD-EPI) Glucose POC Glucose 119 118 POC Glucose Comment Glu2: cleaned meter Calcium Troponin I High Sens 53450.2 H* Triglycerides Cholesterol LDL Cholesterol, Calc VLDL Cholesterol HDL Cholesterol Cholesterol/HDL Ratio 01/17/24 01/17/24 01/17/24 04:37 07:14 11:52 Corrected WBC 17.7 H Uncorrected WBC Count 17.7 H RBC 4.46 Hgb 12.7 L Hct 38.4 L MCV 86.1 MCH 28.4 MCHC 33.0 RDW 15.8 H Plt Count 135 L MPV 9.0 Neut % (Auto) 77.1 Lymph % (Auto) 6.9 [place] % (Auto) 15.6 Eos % (Auto) 0.0 Baso % (Auto) 0.4 Nucleat RBC Rel Count 0.0 Neut # (Auto) 13.6 H Lymph # (Auto) 1.2 [place] # (Auto) 2.8 H Eos # (Auto) 0.0 Baso # (Auto) 0.1 Platelet Estimate Decreased Plt Morphology Comment Normal RBC Morphology N/A PHA Creatinine Clear 44.35 Sodium 135 L Potassium 4.5 Chloride 105 Carbon Dioxide 22.2 Anion Gap 12.3 BUN 26 H Creatinine 1.70 H Est GFR (CKD-EPI) 40.249 Glucose 115 H POC Glucose 125 114 POC Glucose Comment Calcium 8.9 Troponin I High Sens 77945.6 H* Triglycerides 67 Cholesterol 74 L LDL Cholesterol, Calc 28 VLDL Cholesterol 13 HDL Cholesterol 33 Cholesterol/HDL Ratio 2.2 A&P - Cardiology (1) ST elevation myocardial infarction (STEMI) of anterior wall: Code(s): I21.09 - ST elevation (STEMI) myocardial infarction involving other coronary artery of anterior wall (2) Abdominal aortic aneurysm without rupture: Qualifiers: Abdominal aorta location: unspecified Qualified Code(s): I71.40 - Abdominal aortic aneurysm, without rupture, unspecified Code(s): I71.40 - Abdominal aortic aneurysm, without rupture, unspecified (3) Hypertensive nephropathy: Code(s): I12.9 - Hypertensive chronic kidney disease with stage 1 through stage 4 chronickidney disease, or unspecified chronic kidney disease (4) Iron deficiency: Code(s): E61.1 - Iron deficiency (5) Status post endovascular aneurysm repair (EVAR): Code(s): Z98.890 - Other specified postprocedural states; Z86.79 - Personal history of other diseases of the circulatory system (6) Hyperlipidemia: Qualifiers: Hyperlipidemia type: unspecified Qualified Code(s): E78.5 - Hyperlipidemia, unspecified Code(s): E78.5 - Hyperlipidemia, unspecified (7) Hypertension: Code(s): I10 - Essential (primary) hypertension (8) Chronic kidney disease, stage 3b: Code(s): N18.32 - Chronic kidney disease, stage 3b Plan 1. Patient's blood pressure was low during the night will reduce lisinopril andCoreg 2. Continue dual antiplatelet therapy 3. Encourage patient to quit smoking Documented By: Ana Castro MD 01/17/241240 Signed By: <Electronically signed by MD Ana Castro> 01/17/24 2733 [facility] Work Phone: 1([phone]) 575-830108-24-2024 Progress note Author Justina Lara [facility] January 17, 2024 11:57am Note Date/Time January 17, 2024 11 :54am [facility] [address] [place] [address] Pulmonology Progress Note Signed Patient: Alex Anderson MR#: [id number] : 1945 Acct:[id number] Age/Sex: 78 / M Adm Date: 4 Loc: Room: [address] [place] [address] Type: ADM IN Attending Dr: Nas Pruett DO Copies to: ~ Date of Service: 01/17/2024 Subjective Subjective Narrative: He denies chest pain, no dyspnea. He has mild nausea. He had transient hypotension overnight responded to fluid and blood pressure medications were held Exam Physical Exam Vital Signs: Temp Pulse Resp BP Pulse Ox O2 Del Method O2 Flow Rate 98.7 F 92 20 107/68 93 L Room Air 3 01/17/24 03:38 01/17/24 11:00 01/17/24 11:00 01/17/24 11:00 01/17/24 11:00 01/17/24 11:00 01/16/24 17:22 Narrative: General awake and alert no distress HEENT clear oropharynx Cardiovascular regular rate, normal S1-S2 Lungs clear to auscultation Abdomen soft nontender Extremity no edema Objective Intake and Output I&O - Last 24 Hours: Intake & Output 01/16/24 01/17/24 01/17/24 23:59 07:59 15:59 Intake Total 350 / 350 550 / 550 Output Total 350 / 1200 300 / 300 Balance 0 / -850 250 / 250 Weight 99.2 kg Labs 01/17/24 04:37 01/17/24 04:37 Assessment/Plan Assessment/Plan (1) ST elevation myocardial infarction (STEMI) of anterior wall: (2) Abdominal aortic aneurysm without rupture: (3) Hypertensive nephropathy: (4) Iron deficiency: (5) Status post endovascular aneurysm repair (EVAR): (6) Hyperlipidemia: (7) Hypertension: (8) Chronic kidney disease, stage 3b: Plan 01/15 cardiology are managing post PCI/stent in LAD for acute ID. He is on beta- maldonado, antiplatelets, statin, antihypertensive medication per cardiology Monitor creatinine post cath Bronchodilators as needed for COPD Chest x-ray in a.m. DVT prophylaxis Lovenox 01/16 Blood pressure medications were held this morning, adjust per cardiology He does have elevated white count, no evidence of infection. Likely reactive. He does have history of UTI check urinalysis and culture H&H has been fairly stable he is on antiplatelet therapy Documented By: Justina Lara MD 01/17/24 1152 Signed By: <Electronically signed by Justina Lara MD> 01/17/24 1157 [facility] Work Phone: 1(812) 486-353708-23-2024 Consult note Author Justina Lara [facility] January 16, 2024 3:19pm Note Date/Time January 16, 2024 3: 16pm [facility] [address] [place] [address] Pulmonology Consult Note Signed Patient: Alex Anderson MR#: [id number] : 1945 Acct:[id number] Age/Sex: 78 / M Adm Date: 4 Loc: Room: 7M6000-2 Type: REG SDC Attending Dr: Nas Pruett DO Copies to: MD Stanley Cam MD W Scott Sheldon, DO~ HPI Date/Time of Consultation: Date of Service: 01/16/2024 Time of Service: 15:09 Consulting Provider: Justina Lara Requesting Provider: Nas Pruett Reason for Consult: Critical care management History of Present Illness History of present illness: Mr. Anderson is a 78 year old male with past medical history significant for hypertension, abdominal aortic aneurysm status post endograft, nicotine dependence, COPD, chronic kidney disease. He had a recent colonoscopy few days ago he presented to outside hospital with abdominal pain nausea was diagnosed with acute ID and transferred from [facility]. He underwent left heart catheterization and stent in mid LAD Review of Systems Review of Systems All other systems reviewed & are negative unless noted below or in HPI Constitutional Constitutional: Reports as per HPI Cardiovascular Cardiovascular: Reports as per HPI and Reports chest pain at rest [facility] Medical History (Updated 01/16/24 @ 12:52 by Nas Pruett DO) Villarreal catheter in place BPH (benign prostatic hyperplasia) Bladder cancer removed Difficulty swallowing pills COVID-19 history 01/14 Problem List clean-up per request of Phys. EHR Cmte COPD (chronic obstructive pulmonary disease) Osteoarthritis Kidney failure stage 1 Hyperlipidemia Obstructive uropathy Vitamin B 12 deficiency Problem List clean-up per request of Phys. EHR Cmte Folic acid deficiency owning Tobacco abuse quit april of 2023 Problem List clean-up per request of Phys. EHR Cmte Bilateral hydronephrosis TIA (transient ischemic attack) Problem List clean-up per request of Phys. EHR Cmte Dyslipidemia Essential hypertension Kidney stones history of Problem List clean-up per request of Phys. EHR Cmte Surgical History (Updated 12/31/23 @ 14:22 by Cathy Rankin RN) S/P cystoscopy Status post endovascular aneurysm repair (EVAR) History of bilateral cataract extraction Family History (Updated 12/31/23 @ 14:22 by Cathy Rankin RN) Father Brain tumor Mother Rheumatic fever Brother Bladder cancer Son Family history of mental disorder Legacy FamHx Problem: Diagnosed with Mental Illness Social History Smoking Status: Current every day smoker Tobacco Type: cigarettes Substance Use Type: None Substance Abuse Comment: No alcohol use Meds Medications and Allergies Allergies No Known Allergies Allergy (Verified 12/31/23 14:13) Home Medications albuterol sulfate 90 mcg/actuation aerosol inhaler 2 puff inhalation Q6HR PRN shortness of breath or wheezing 10/22/23 [History Confirmed 01/16/24] aspirin 81 mg tablet,delayed release (Adult Low Dose Aspirin) 81 mg PO DAILY 10/22/23 [History Confirmed 01/16/24] ferrous sulfate 142 mg (45 mg iron) tablet,extended release 142 mg PO DAILY 10/22/23 [History Confirmed 01/16/24] multivitamin 1 tab PO DAILY 10/22/23 [History Confirmed 01/16/24] spironolactone 25 mg tablet 25 mg PO DAILY 10/22/23 [History Confirmed 01/16/24] amlodipine 5 mg tablet 5 mg PO DAILY 12/31/23 [History Confirmed 01/16/24] inulin 2 gram chewable tablet (Fiber Gummies) 2 g PO DAILY 12/31/23 [History Confirmed 01/16/24] atorvastatin 80 mg tablet 80 mg PO QPM 30 days #30 tabs 01/16/24 [Rx] carvedilol 6.25 mg tablet 6.25 mg PO BID.WITH.MEALS 30 days #60 tabs 01/16/24 [Rx] lisinopril 5 mg tablet 5 mg PO DAILY 30 days #30 tabs 01/16/24 [Rx] nitroglycerin 0.4 mg sublingual tablet 0.4 mg sublingual Q5M PRN chest pain 30 days #25 tabs 01/16/24 [Rx] ticagrelor 90 mg tablet (Brilinta) 90 mg PO BID 90 days #180 tabs 01/16/24 [Rx] Exam Physical Exam Vital Signs: Temp Pulse Resp BP Pulse Ox O2 Del Method 98.1 F 77 22 109/77 93 L Room Air 01/16/24 12:54 01/16/24 12:54 01/16/24 12:54 01/16/24 12:54 01/16/24 12:54 01/16/24 12:54 Narrative: General awake and alert no distress HEENT clear oropharynx Cardiovascular regular rate, normal S1-S2 Lungs clear to auscultation Abdomen soft nontender Extremity no edema Results - Pulmonology Intake and Output I&O - Last 24 Hours: Intake & Output 01/15/24 01/16/24 01/16/24 23:59 07:59 15:59 Output Total 850 / 850 Balance -850 / -850 Weight 102.9 kg Assessment/Plan (1) ST elevation myocardial infarction (STEMI) of anterior wall: (2) Abdominal aortic aneurysm without rupture: (3) Hypertensive nephropathy: (4) Iron deficiency: (5) Status post endovascular aneurysm repair (EVAR): (6) Hyperlipidemia: (7) Hypertension: (8) Chronic kidney disease, stage 3b: Plan Cardiology are managing post PCI/stent in LAD for acute ID. He is on beta- maldonado, antiplatelets, statin, antihypertensive medication per cardiology Monitor creatinine post cath Bronchodilators as needed for COPD Chest x-ray in a.m. DVT prophylaxis Lovenox Documented By: Justina Lara MD 01/16/24 1509 Signed By: <Electronically signed by Justina Lara MD> 01/16/24 1519 [facility] Work Phone: 1(224) 241-701508-23-2024 History and physical note Author Nas Pruett [facility] January 16, 2024 12:53pm Note Date/Time January 16, 2024 12 :45pm [facility] [address] [place] [address] Cardiology H&P Signed Patient: Alex Anderson MR#: [id number] : 1945 Acct:[id number] Age/Sex: 78 / M Adm Date: 4 Loc: Room: [address] [place] [address] Type: REG [facility] Attending Dr: Nas Pruett DO Copies to: MD Nas Richards DO~ Date of Service: 01/16/2024 Cardiology HPI History of Present Illness Chief complaint: Anterior STEMI HPI: Mr. Anderson is a 78 year old male transferred from [place] with acute anterior ST elevation ID; original phone call taken from outside ER attending at 09:30 AM. Patient arrived in Network Coordinator at 1116, after attempted right femoral approachand eventually successful right radial approach PCI of infarct vessel performed at 1144; door to device time (despite unsuccessful femoral attempt) was 28 minutes. Past medical history is noted for essential hypertension, hypertensive nephropathy, abdominal aortic aneurysm endograft 1 year ago, tobacco use, presumed COPD, iron deficiency anemia, colonic polyp (colonoscopy 2 days ago) There is no prior history of myocardial infarction, coronary revascularization, stroke, thromboembolic or bleeding disorder. Patient had recent colonoscopy at this facility 2 days ago, last evening around 12 AM developed abdominal discomfort that radiated to the epigastrium and retrosternal area (beginning of his suspected symptomatology); finally went to [place] ER around 02-01 30 this morning whereupon he was appropriately he diagnosed, appropriate upstream therapy instituted under my direction after discussion with ER attending, and emergently transferred to [facility] for revascularization. Total 60 minutes nonprocedural critical care time were devoted to the outside ERattending and staff, Network Coordinator staff, nursing staff, patient and family pre and post procedurally Review of Systems Review of Systems All other systems reviewed & are negative unless noted below or in HPI Constitutional Constitutional: Reports as per HPI Cardiovascular Cardiovascular: Reports as per HPI and Reports chest pain at rest [facility] Medical History (Updated 01/16/24 @ 12:52 by Nas Pruett DO) Villarreal catheter in place BPH (benign prostatic hyperplasia) Bladder cancer removed Difficulty swallowing pills COVID-19 history 01/14 Problem List clean-up per request of Phys. EHR Cmte COPD (chronic obstructive pulmonary disease) Osteoarthritis Kidney failure stage 1 Hyperlipidemia Obstructive uropathy Vitamin B 12 deficiency Problem List clean-up per request of Phys. EHR Cmte Folic acid deficiency Tobacco abuse quit april of 2023 Problem List clean-up per request of Phys. EHR Cmte Bilateral hydronephrosis TIA (transient ischemic attack) Problem List clean-up per request of Phys. EHR Cmte Dyslipidemia Essential hypertension Kidney stones history of Problem List clean-up per request of Phys. EHR Cmte Surgical History (Updated 12/31/23 @ 14:22 by Cathy Rankin RN) S/P cystoscopy Status post endovascular aneurysm repair (EVAR) History of bilateral cataract extraction Family History (Updated 12/31/23 @ 14:22 by Cathy Rankin RN) Father Brain tumor Mother Rheumatic fever Brother Bladder cancer Son Family history of mental disorder Legacy FamHx Problem: Diagnosed with Mental Illness Social History Smoking Status: Current every day smoker Tobacco Type: cigarettes Substance Use Type: None Substance Abuse Comment: No alcohol use Meds Medications and Allergies Allergies No Known Allergies Allergy (Verified 12/31/23 14:13) Home Medications metoprolol tartrate 50 mg tablet 50 mg PO BID 05/16/22 [History Confirmed 12/31/23] simvastatin 20 mg tablet 20 mg PO HS 05/16/22 [History Confirmed 12/31/23] albuterol sulfate 90 mcg/actuation aerosol inhaler 2 puff inhalation Q6HR PRN shortness of breath or wheezing 10/22/23 [History Confirmed 12/31/23] aspirin 81 mg tablet,delayed release (Adult Low Dose Aspirin) 81 mg PO DAILY 10/22/23 [History Confirmed 12/31/23] ferrous sulfate 142 mg (45 mg iron) tablet,extended release 142 mg PO DAILY 10/22/23 [History Confirmed 12/31/23] multivitamin 1 tab PO DAILY 10/22/23 [History Confirmed 12/31/23] spironolactone 25 mg tablet 25 mg PO DAILY 10/22/23 [History Confirmed 12/31/23] amlodipine 5 mg tablet 5 mg PO DAILY 12/31/23 [History Confirmed 01/14/24] inulin 2 gram chewable tablet (Fiber Gummies) 2 g PO DAILY 12/31/23 [History Confirmed 12/31/23] Exam Const General: cooperative, well developed and in distress mild Nutritional Appearance: average body habitus Orientation: alert, awake and oriented x3 HEENT Head: normal to inspection Chest Chest palpation & inspection: normal inspection of the chest Resp Effort & Inspection: normal respiratory effort Auscultation: clear to auscultation bilaterally Cardio Rate: regular rate Rhythm: regular rhythm Heart Sounds: S1 normal, S2 normal and no murmurs Pulses: radial pulses present and femoral pulses present GI Palpation: soft Skin General: no rashes or lesions noted Neuro General: patient alert, patient awake and patient oriented x3 Cognition: normal cognition Speech: speech normal Extrem General: no clubbing, cyanosis or edema EKG Interpretations EKG EKG results cardiology: sinus rhythm ID, pacemaker, normal Myocardial infarction: anterior ID (acute or recent) A&P - Cardiology (1) ST elevation myocardial infarction (STEMI) of anterior wall: Code(s): I21.09 - ST elevation (STEMI) myocardial infarction involving other coronary artery of anterior wall (2) Abdominal aortic aneurysm without rupture: Qualifiers: Abdominal aorta location: unspecified Qualified Code(s): I71.40 - Abdominal aortic aneurysm, without rupture, unspecified Code(s): I71.40 - Abdominal aortic aneurysm, without rupture, unspecified (3) Hypertensive nephropathy: Code(s): I12.9 - Hypertensive chronic kidney disease with stage 1 through stage 4 chronickidney disease, or unspecified chronic kidney disease (4) Iron deficiency: Code(s): E61.1 - Iron deficiency (5) Status post endovascular aneurysm repair (EVAR): Code(s): Z98.890 - Other specified postprocedural states; Z86.79 - Personal history of other diseases of the circulatory system (6) Hyperlipidemia: Qualifiers: Hyperlipidemia type: unspecified Qualified Code(s): E78.5 - Hyperlipidemia, unspecified Code(s): E78.5 - Hyperlipidemia, unspecified (7) Hypertension: Code(s): I10 - Essential (primary) hypertension (8) Chronic kidney disease, stage 3b: Code(s): N18.32 - Chronic kidney disease, stage 3b Plan Emergent cath/PCI Documented By: Nas Pruett DO 01/16/24 1244 Signed By: <Electronically signed by Nas Pruett DO> 01/16/24 1251 [facility] Work Phone: 1(788) 330-869108-23-2024 Procedure [facility]08-23-2024 Procedure [facility]08-21-2024 Procedure [facility]05-10-2024 Hospital Discharge instructions Patient Education 10/03/2023 14:19:12 Acute Urinary Retention, Male Acute Urinary Retention, Male Acute urinary retention is a condition in which a person is unable to pass urine or can only pass alittle urine. This condition can happen suddenly and [...] As men age, their prostate may become largerand may start to press or squeeze on the bladder or the urethra. Other chronic health conditions can increase the risk of acute urinary retention. These include: Diseases such as multiple sclerosis. Spinal cord injuries. Diabetes. Degenerative cognitive conditions, such as delirium or dementia. Psychological conditions. A man may hold his urine due to trauma or because he does not want to usethe bathroom. What are the signs or symptoms? [...] Follow these instructions at home: Medicines Take silb-uik-xehmcgx and prescription medicines only as told by [...] need help quitting, ask your health careprovider. Drink enough fluid to keep your urine [...] to pass urine or can only pass alittle urine. If left untreated, this condition can [...] provider. Document Revised: 01/31/2021 Document Reviewed: 01/31/2021 [email or web address] Patient Education 2022 [employer]. Follow Up Care 08/15/2023 11:04:15 With:ARLENE CASILLAS, Katia Hall, URL Address: [facility] [address] [place] [address] [phone] When: Unknown [facility] 02-05-2024 Hospital Discharge instructions Patient Education 06/30/2023 14:29:22 Acute Urinary Retention, Male Acute Urinary Retention, Male Acute urinary retention is a condition in which a person is unable to pass urine or can only pass alittle urine. This condition can happen suddenly and [...] As men age, their prostate may become largerand may start to press or squeeze on the bladder or the urethra. Other chronic health conditions can increase the risk of acute urinary retention. These include: Diseases such as multiple sclerosis. Spinal cord injuries. Diabetes. Degenerative cognitive conditions, such as delirium or dementia. Psychological conditions. A man may hold his urine due to trauma or because he does not want to usethe bathroom. What are the signs or symptoms? [...] Follow these instructions at home: Medicines Take nptu-ltg-uejhjlq and prescription medicines only as told by [...] need help quitting, ask your health careprovider. Drink enough fluid to keep your urine [...] to pass urine or can only pass alittle urine. If left untreated, this condition can [...] provider. Document Revised: 01/31/2021 Document Reviewed: 01/31/2021 [email or web address] Patient Education 2022 [employer]. Follow Up Care 05/06/2023 11:11:29 With:ARLENE CASILLAS, Katia Hall, URL Address: [facility] [address] [place] [address]- [phone] When: Unknown Comments:1 day for catheter removal [facility] 01-16-2024 Hospital Discharge instructions Patient Education 06/10/2023 15:16:23 EU - [...] excessive or you are having trouble urinating, callthe number below. 2. Painful Urination. It is common to have some pain or burning with urination for 1 to 2 weeks. Itshould gradually improve. If it persists or starts [...] almost always resolve without any treatment. You shouldnot be alarmed. Frequently Asked Questions Your Treating [...] day. If you are taking pain medication (narcotics)or have a physical job (lifting, construction work, [...] is an emergency, go to the nearest emergencyroom or call 911. Villarreal Catheter Care, Male [...] because this could sweep bacteria up into theurethra and cause infection. Remove all traces of [...] cotton underwear to absorb moisture and keep rnp. 6. Keep the drainage bag below the [...] leg strap. Avoid attaching the new bag tootightly. 7. Place a cap on the drainage [...] With:Katia JACOBS Address: [facility] [address] [place] [address]- Business (1) When:06/24/2023 15:15:55 Comments:for villarreal removal [facility]01-16-2024 Note [id number] 06-10-2023 NoteCustom Rezum Post-Procedure Instructions General Recommendations 1. Drink [...] excessive or you are having trouble urinating, callthe number below. 2. Painful Urination. It is common to have some pain or burning with urination for 1 to 2 weeks. Itshould gradually improve. If it persists or starts [...] day. If you are taking pain medication (narcotics)or have a physical job (lifting, construction work, [...] is an emergency, go to the nearest emergencyroom or call 911. Villarreal Catheter Care, Male [...] site using a circul (more content not included)...[facility]12-12-2023 Evaluation note* Encounter Date Diagnosis Assessment Notes Treatment Notes Treatment Clinical Notes Apr, Primary hypertension (ICD-10 - I10) [facility] Other 11-21-2023 Evaluation note* Encounter Date Diagnosis [...] supplement. I asked the patient to continue dvrk-ffc-znrxuoh iron supplement once or twice daily Mar, Primary hypertension (ICD-10 - I10) BP is elevated. Will start Norvasc 5 mg PO daily. i asked the patient to monitor Bp closely with tapering steroid dose [facility] Other 10-17-2023 Hospital Discharge instructions Patient Education [...] including vitamins, herbs, eye drops, creams, and bofz-wcm-muhzcno medicines. Any problems you or family members [...] provider tells you to take them. Taking mvmz-doi-krqjjit medicines, vitamins, herbs, and supplements. Surgery safety [...] provider. Document Revised: 02/05/2022 Document Reviewed: 02/05/2022 [email or web address] Patient Education 2022 [employer]. 03/11/2023 14:15:06 Benign Prostatic Hyperplasia Benign Prostatic [...] urethra. Follow these instructions at home: Take yqgz-amh-lyhdmlw and prescription medicines only as told by [...] provider. Document Revised: 11/28/2021 Document Reviewed: 11/28/2021 [email or web address] Patient Education 2022 [employer]. Follow Up Care 02/07/2023 16:01:50 With:ARLENE CASILLAS, ADRIA Sterling Address: [facility] [address] , [place] [address]- When:Within 3 Month(s) Comments:Sched cysto/FISH/Cytol/BT check [facility] Dominic 10-17-2023 Evaluation + Plan note Diagnostic Tests Pending * [facility]ro[facility]ysion Fish and Urine Cyto ([facility]) 03/11/23 [facility]08-15-2023 Note [id number]:127[facility] 12-10-2022 Evaluation + Plan note Diagnostic Tests Pending * UroVysion Fish and Urine Cyto ([facility]) 12/10/22 [facility]07-18-2023 Hospital Discharge instructions Patient Education 12/10/2022 [...] if anything looks unusual. Men with a eoogfj-cnep-smosaz risk for skin cancer may want to see a category specialist (seasonal tax preparer) for an annual body check. What are the benefits of screening? Cancer screening is done to look for cancer in the very early stages, before it spreads and becomesharder to treat and before you would start to notice symptoms. Finding cancer early improves the chances of successful treatment. It may save your life. Where to find more information [place] [employer]: www.cancer.org Centers for Disease Control and Prevention: www.cdc.gov National Cancer Bath: www.cancer.gov Contact a health care provider if: [...] provider. Document Revised: 10/08/2021 Document Reviewed: 04/07/2020 [email or web address] Patient Education 2022 [employer]. Follow Up Care 11/15/2022 14:27:10 With:ARLENE CASILLAS, Katia R, URL Address: [facility] [address] , [place] [address]- When: Unknown [facility] 04-26-2023 Hospital Discharge instructions Patient Education [...] cells. Follow these instructions at home: Take grnd-soy-nrulfnq and prescription medicines only as told by [...] is important. Where to find more information [place] [employer] (ACS): cancer.org National Cancer Bath (NCI): cancer.gov Contact a health care provider [...] provider. Document Revised: 04/22/2022 Document Reviewed: 04/22/2022 [email or web address] Patient Education 2022 [employer]. Follow Up Care 08/26/2022 14:12:46 With:ARLENE CASILLAS, Katia Hall, URL Address: [facility] [address], [place] [address]- When: Unknown [facility] 04-10-2023 NoteEXAM: XR CHEST 2 V HISTORY: Pre-surgery evaluation COMPARISON: None. TECHNIQUE: PA and lateral views of the chest. FINDINGS: The cardiomediastinal silhouette is normal. No focal consolidation is identified. There is no pneumothorax. No pleural effusion is noted. The osseous structures are intact. IMPRESSION: No acute cardiopulmonary process. Electronically authenticated by: CORKY FORD Date: 2022-09-02 14:17[id number] Evaluation note* Encounter Date Diagnosis Assessment Notes [...] have his bladder tumor removal as scheduled. [facility] Other 03-08-2023 Evaluation + Plan note Diagnostic Tests Pending * UroVysion Fish and Urine Cyto ([facility]) 07/31/22 [facility] 03-08-2023 Hospital Discharge instructions Patient Education 07/31/2022 [...] including vitamins, herbs, eye drops, creams, and ofoq-yki-mfhsgur medicines. Any problems you or family members [...] provider tells you to take them. Taking jrvz-mxo-xpnjfpj medicines, vitamins, herbs, and supplements. Tests You [...] 03/08/2010 Document Revised: 12/11/2018 Document Reviewed: 12/11/2018 [email or web address] Patient Education 2020 [employer]. Follow Up Care 07/25/2022 10:56:51 With:ARLENE CASILLAS, Katia Hall, URL Address: [facility] [address] , [place] [address]- When: Unknown [facility] 03-02-2023 Evaluation note* Encounter Date Diagnosis [...] some bladder issues. I did call the [employer]. The device is compatible up to 3 Maggi for MRI. I explained this to the family and the patient. Jul, Other specified postprocedural states (ICD-10 - Z98.890) Jul, Personal history of other diseases of the circulatory system (ICD-10 - Z86.79) [facility]01-25-2023 Evaluation note* Encounter Date [...] plan to do this percutaneously under MAC. [facility] Other 01-17-2023 Hospital Discharge instructions Patient Education [...] including vitamins, herbs, eye drops, creams, and hxpf-vtz-kqgxxab medicines. Any problems you or family members [...] provider tells you to take them. ?Taking dkhi-fxf-jayftaq medicines, vitamins, herbs, and supplements. Follow instructions [...] Follow these instructions at home: Medicines Take gbsk-rdm-acuszgx and prescription medicines only as told by [...] 05/09/2001 Document Revised: 05/04/2019 Document Reviewed: 05/04/2019 [email or web address] Patient Education 2020 [employer]. Follow Up Care 05/22/2022 13:37:28 With:[facility] Address: [address] [place] [address] Business (1) When: Unknown Comments:our outside salesman will be contacting you for follow-up [facility] Eva 01-12-2023 Evaluation note* Encounter Date Diagnosis Assessment [...] to proceed all his questions were addressed. [facility] Other 01-10-2023 Evaluation note* Encounter Date Diagnosis [...] (ICD-10 - E78.5) Patient is on statin [facility] Other Discharge summary Author Teo Stokes [facility] January 23, 2024 3:52pm Note Date/Time January 23, 2024 3: 52pm [facility] [address] [place] [address] Discharge Summary Signed Patient: Alex Anderson MR#: [id number] : 1945 Acct:[id number] Age/Sex: 78 / M Adm Date: 4 Loc: Room: [address] [place] [address]: Nas Pruett DO Copies to: MD Teo Richards MD, [facility] Nas Pruett DO~ Providers Date of Discharge: 01/23/24 Discharging Provider: Teo Stokes Primary Care Provider: Stanley Emerson Consults: 01/16/24 12:54 Consult to Pulmonology Routine Comment: Consulting Provider: [facility] - Pulmon, CC & Sleep Med Reason For Exam: Critical Care Management Has Provider Been Notified: Yes Date of Notification: 01/16/24 Time of Notification: 13:09 Extended Comment: Stable Anterior STEMI; PCI LAD; LVEF 40%; no pulm issues Consult to Cardiac Rehabilitation Routine Comment: Physician Instructions: Reason for Consult: Patient Education 01/22/24 09:41 Consult to Occupational Therapy Routine Comment: Physician Instructions: Consult to OT for:: Evaluation and Treat Consult to Physical Therapy Routine Comment: Physician Instructions: Consult to PT for:: Evaluation and Treat 01/22/24 15:14 Consult to Physiatry Routine Comment: Consulting Provider: MIGUEL - Phys Med - Rehab Reason For Exam: goals of care for inpatient rehab Has Provider Been Notified: Yes Date of Notification: 01/22/24 Time of Notification: 15:30 01/22/24 22:55 Consult to Adult Hospitalist Routine Comment: Consulting Provider: Community Hospitalist (Adult) Reason For Exam: Fall, Sundowning. Has Provider Been Notified: Yes Date of Notification: 01/22/24 Time of Notification: 22:55 Extended Comment: Evaluation for fall and possible need for medications due to restlessness. Discharge Diagnosis (1) Sleep-wake cycle disorder: (2) Delirium: Final Diagnosis Final Discharge Diagnosis: Anterior ST elevation myocardial infarction New onset atrial fibrillation Ischemic cardiomyopathy Hypotension Confusion Chronic kidney disease Stented LAD Summary Hospital Course Hospital course: Patient was transferred from [facility] emergency department with anterior ST elevation myocardial infarction and was taken straight to the Network Coordinator by Dr. Pruett and underwent urgent PCI of the LAD for subtotal occlusion. The procedure was uncomplicated. Following stenting of the LAD the patient developed atrial fibrillation requiring initiation of therapy with Eliquis and antiarrhythmic therapy with amiodarone. The patient developed significant hypotension requiring IV dopamine which stabilized his blood pressure and was eventually removed. His echocardiogram demonstrated severe LV systolic dysfunction ejection fraction 30%. His other coronary arteries were not significantly disease. Patient did not have any other arrhythmias, he has baselinestage III chronic kidney disease which did not change while he was in the hospital. The patient has baseline dementia and there was times when he sundownand and became more agitated requiring therapy with Seroquel which helped calm him down. The patient was not approved for inpatient rehab and the family wanted to transfer him home with home health care which was arranged. On the day of discharge patient was resting comfortably at the bedside chair, his daughter was with him and he appeared to be completely comfortable and in no distress. His systolic blood pressure was 95 mmHg, heart rate was 70 bpm and remained atrial fibrillation. He did not have any bleeding complications. Because of the addition of Eliquis the aspirin was discontinued and the Brilintawas maintained. He will be scheduled for follow-up visit in the next few weeks.. Time Spent with Patient Time spent providing/coordinating discharge services (# min): 30 Surgeries and Procedures Operation Date: 01/16/24 11:00 Actual Procedures s CL LHC & COR Angio - W Dariusz Pruett, DO p CL PCI AMI 1st Vessel LAD KATHERIN - W Dariusz Pruett, DO p CL Iliac/Fem w/LHC - W Dariusz Pruett, DO Discharge Plan Discharge Plan Patient Disposition: Home Health Services Activity: Ambulate as Tolerated Diet: Low-Sodium and Low-Cholesterol Additional Instructions: DISCHARGE INSTRUCTIONS FOR ANGIOPLASTY/CORONARY/PERIPHERAL/STENT IMPLANT FOR ADULT ANTICOAGULATION -Since the greatest risk of a blood clot forming with the stent occurs in the first 2-3 weeks after implantation, you will need to take anticoagulants for at least 12-18 months. ANTICOAGULATION MEDICATION Aspirin 81mg once a day, Ticagrelor (Brilinta) 90mg twice a day STATIN MEDICATION Atorvastatin (Lipitor) 80 mg Drug-Eluting Stent (KATHERIN) DO NOT discontinue Brilinta/Aspirin during the first few months regardless of what you are advised by your family doctor or pharmacist, without first calling the lead presser who implanted the stent. If you require pain relief during this time, please take only ACETAMINOPHEN (TYLENOL)- NO additional aspirin or ibuprofen. DISCHARGE ACTIVITIES ARE FOLLOWS: First week after discharge: -Take it easy at home, no strenuous activity. -Do not lift or pull objects over 10-15 pounds, including children, and groceries for four weeks. If puncture site is at wrist do NOT lift more than three pounds for three days. - May walk up stairs. -May shower. -No excessive scrubbing of the affected site (groin). -May ride in car. -May resume sexual intercourse after 1-2 weeks. -No MRI for 12 days. -May drive in 4-7 days. -If puncture site is at the wrist do not manipulate the wrist for 24 hours, and no soaking wrist for three days. Second Week: -May take a bath -May start walking 3 times a week for 15-20 minutes at a leisurely pace. You should be able to carry on a conversation comfortably without feeling winded. -No strenuous activity as in jogging, running, weight lifting, stair steppers, etc. until the lead presser approves these activities. Check with the lead presser on your first follow-up visit. CALL YOUR EMPLOYMENT MANAGER: -If bleeding should occur from the catheter insertion site- apply pressure to the site then immediately call us. -Report any fever, redness, drainage, increased swelling, or firmness at the catheter insertion site. Some bruising or slight swelling may be present at thetime of discharge. -Should arm or leg become cold, numb, white, or blue, contact the lead presser immediately. -IF you should experience episodes of angina, e.g. chest discomfort, heaviness, tightness, pressure burning with or without radiation to the neck, jaw, arms or back- use 1 Nitrostat tablet under your tongue every 5-10 minutes and up to three tablets. IF NO RELIEF, CALL 911 or GO TO THE NEAREST EMERGENCY ROOM. -Please notify our office if you have recurrent angina. -Cardiac Rehab Education Provided. Participation in the Cardiopulmonary Rehabilitation program is recommended. The attending lead presser or a nurse clinician should provide you with specificinstructions regarding activity, diet, medications, and further follow up for you. Follow the medication instructions provided on your discharge. If the dosages and instructions on this sheet differ from the dosage and instructions on the bottle, follow the instructions on the bottle. [facility] is not responsible for incorrect prescription information provided by thepatient during their visit. Do not stop your medications without consulting your health care provider. Please take the list with you to your next doctor's appointment. Instructions: Coronary Angioplasty (DC), Coronary Stenting (DC), Angina (DC), Chest Pain (DC), Drug Eluting Stents, Know your Meds Prescriptions: New atorvastatin 80 mg Tablet 80 mg PO QPM 30 Days Qty: 30 12RF Brilinta 90 mg Tablet 90 mg PO BID 90 Days Qty: 180 3RF nitroglycerin 0.4 mg tablet, sublingual 0.4 mg sublingual Q5M PRN (Reason: chest pain) 30 Days Qty: 25 3RF Rx Instructions: until response; do not exceed 3 doses per event clopidogrel 75 mg Tablet 75 mg PO DAILY 30 Days Qty: 30 12RF Eliquis 2.5 mg Tablet 2.5 mg PO BID 30 Days Qty: 60 12RF amiodarone 200 mg Tablet 200 mg PO BID 30 Days Qty: 60 12RF Continued Fiber Gummies 2 gram tablet,chewable 2 g PO DAILY multivitamin Tablet 1 tab PO DAILY ferrous sulfate 142 mg (45 mg iron) tablet extended release 142 mg PO DAILY albuterol sulfate 90 mcg/actuation HFA aerosol inhaler 2 puff inhalation Q6HR PRN (Reason: shortness of breath or wheezing) Discontinued simvastatin 20 mg tablet 20 mg PO HS Patient Comments: TAKE 1 TABLET BY MOUTH EVERY DAY IN THE EVENING FOR 90 DAYS metoprolol tartrate 50 mg tablet 50 mg PO BID Patient Comments: TAKE 1 TABLET BY MOUTH TWICE A DAY FOR 90 DAYS amlodipine 5 mg tablet 5 mg PO DAILY spironolactone 25 mg tablet 25 mg PO DAILY aspirin [Adult Low Dose Aspirin] 81 mg tablet,delayed release (DR/EC) 81 mg PO DAILY Other Ambulatory Orders: Initiate Home Health (Routine) Timeframe: 1 Day Location: Determined by Patient Ordered By: Nas Pruett Follow Up: Teo Stokes MD [Active Staff] - (office will call you after the holiday with follow up.) Exam Physical Exam Vital Signs: Temp Pulse Resp BP Pulse Ox O2 Del Method O2 Flow Rate 98.2 F 74 20 92/55 L 96 Room Air 2 01/22/24 23:41 01/23/24 11:19 01/23/24 11:13 01/23/24 11:19 01/23/24 11:13 01/23/24 11:13 01/19/24 10:00 Const General: cooperative, comfortable and no acute distress Nutritional Appearance: overweight Orientation: alert and awake HEENT Head: normal to inspection, normocephalic and atraumatic Ears: hearing grossly impaired Nose: external nose normal Face and sinus: normal facial exam Eyes Conjunctivae: conjunctivae normal Pupils: PERRL Neck Neck: normal visual inspection, trachea midline and supple Neck mass: No Thyroid: thyroid normal Carotids: normal carotid upstroke Resp Effort & Inspection: normal respiratory effort Auscultation: clear to auscultation bilaterally Cardio Jugular venous pressure: no JVD Rate: regular rate Rhythm: abnormal rhythm irregularly irregular Heart Sounds: S1 normal and S2 normal GI Inspection: normal to inspection Palpation: soft and no hepatosplenomegaly Auscultation: normal bowel sounds Extrem General: no clubbing, cyanosis or edema Diagnostic Studies Completed and Pending Studies Pending studies at discharge: 01/16/24 12:54 CPR cardiac rehab ed Routine 01/23/24 09:06 Urine Culture Stat Preliminary micro results at discharge 01/23/24 09:06 Urine Culture - Pending Urine - Villarreal Catheter Labs on day of discharge: 01/23/24 09:06: Urine Color Yellow, Urine Appearance Clear, Urine pH 5.5, Ur Specific Lyons 1.022, Urine Protein Trace H, Urine Glucose (UA) Normal, Urine Ketones Negative, Urine Occult Blood 2+ H, Urine Nitrite Negative, Urine Bilirubin Negative, Urine Urobilinogen 2 H, Ur Leukocyte Esterase 4+ H, Urine RBC 20-49 H, Urine WBC 20-49 H, Urine WBC Clumps Rare H, Ur Squamous Epith CellsN/A, Urine Bacteria Rare, Hyaline Casts None, Urine Mucus Rare Documented By: Teo Stokes MD, [facility] 4 [id number] Signed By: <Electronically signed by [facility] Teo Stokes> 01/23/24 1552 [facility] Work Phone: Evaluation + Plan note No data available for this section [facility] evaluation + Plan note Future Appointments Appointment Date:10/04/2022 10:00:00 AM Scheduled Provider: Location:[facility] Appointment Type:URO Nurse Visit [facility] Evaluation + Plan note Future Appointments Appointment Date:06/16/2023 10:00:00 AM Scheduled Provider: Location:[facility] Appointment Type:URO Nurse Visit Appointment Date:06/30/2023 01:30:00 PM Scheduled Provider:Katia JACOBS MD Location:[facility] Appointment Type:URO Office Visit Diagnostic Tests Pending * UroVysion Fish and Urine Cyto ([facility]) [facility]ments Appointment Date:06/30/2023 01:30:00 PM Scheduled Provider:Katia JACOBS MD Location:[facility] Appointment Type:URO Office Visit [facility] evaluation + Plan note Future Appointments Appointment Date:07/01/2023 08:30:00 AM Scheduled Provider: Location:[facility] Appointment Type:URO Nurse Visit [facility] evaluation + Plan note Future Appointments Appointment Date:09/09/2023 02:15:00 PM Scheduled Provider:Katia JACOBS MD Location:[facility] Appointment Type:URO Procedure 15 min [facility] Evaluation + Plan note Future Appointments Appointment Date:10/07/2023 02:45:00 PM Scheduled Provider:Katia JACOBS MD Location:[facility] Appointment Type:URO Procedure 15 min [facility] Evaluation + Plan note Future Appointments Appointment Date:10/31/2023 11:00:00 AM Scheduled Provider: Location:[facility] Appointment Type:URO Nurse Visit [facility] Evaluation + Plan note Future Appointments Appointment Date:10/31/2023 11:00:00 AM Scheduled Provider: Location:[facility] Appointment Type:URO Nurse Visit Diagnostic Tests Pending * UroVysion Fish and Urine Cyto ([facility]) [facility]ments Appointment Date:11/04/2023 10:30:00 AM Scheduled Provider: Location:[facility] Appointment Type:URO Nurse Visit [facility] Evaluation + Plan note Future Appointments Appointment Date:12/02/2023 11:00:00 AM Scheduled Provider:TC Boles APRN, [place] [facility] Location:[facility] Appointment Type:URO Office Visit [facility] evaluation + Plan note Future Appointments Appointment Date:01/20/2024 11:30:00 AM Scheduled Provider:TC Boles APRN, [place] X Location:[facility] Appointment Type:URO Office Visit [facility] evaluation note* Diagnosis Onset Date Resolution [...] tract infection) acute [facility]: Evaluation noteNo assessment information available [facility] Work Phone: Evaluation noteNo InformationNort [facility] Other Evaluation note* Diagnosis Onset Date Resolution Status Status post endovascular aneurysm repair (EVAR) acute Abdominal aortic aneurysm without rupture acute Anemia acute Chronic kidney disease, stage 3b acute Hyperlipidemia acute Hypertensive nephropathy acu te Iron deficiency acute [facility]: [facility] note* Diagnosis Onset Date Resolution Status Abdominal aortic aneurysm without rupture acute Anemia acute Chronic kidney disease, stage 3b acute Hyperlipidemia acute Hypertensive nephropathy acu te Iron deficiency acute [facility]ive [facility] Work [facility]: Evaluation note* Diagnosis Onset Date Resolution Status Abdominal aortic aneurysm without rupture acute Atrial fibrillation, new onset acute Chronic kidney disease, stage 3b acute Chronic systolic heart failure acute Delirium acute Hyperlipidemia acute Hypertension acute Hypertensive nephropathy acu te Hypotension acute Impaired mobility and activities of daily living acute Iron deficiency acute Ischemic cardiomyopathy acut e Sleep-wake cycle disorder ac quentin ST elevation myocardial infa rction (STEMI) of anterior wall acute Status post endovascular aneurysm repair (EVAR) acute [facility]ented [facility] Work Phone: History and physical note Author Willy Lambert [facility] January 14, 2024 8:46am Note Date/Time January 14, 2024 8: 46am [facility] [address] [place] [address] Gastroenterology H&P Signed Patient: Alex Anderson MR#: [id number] : 1945 Acct:[id number] Age/Sex: 78 / M Adm Date: 4 Loc: Room: Type: [facility] Attending Dr: Willy Lambert MD Copies to: MD Stanley Valenzuela MD~ Date of Service: 01/14/2024 HISTORY & PHYSICAL: Patient's history with special attention to the cardiovascular, pulmonary systems and the current problem was reviewed with the patient immediately prior to the procedure. Present medications and doses reviewed in the EMR. Allergies and pertinent laboratory tests were also reviewedat this time in the EMR. The physical examination, as below, was then performed. Indication, assessment and HPI: 78-year-old male presents for colonoscopy to evaluate positive Cologuard Family history of GI malignancy? no PHYSICAL EXAMINATION Mouth and Pharynx : moist mucus membranes, normal dentition Cardiac: regular rate, regular rhythm Pulmonary: normal respiratory effort, able to speak in complete sentences Neurological: alert and oriented x3, no focal deficits noted Abdomen: Abdomen soft, non-tender REVIEW OF SYSTEMS Constitutional: Denies malaise, fevers Cardiovascular: Denies chest pain, palpitations Respiratory: Denies shortness of breath, wheezing Gastrointestinal: Per HPI Genitourinary: Denies dysuria, polyuria Musculoskeletal: Denies joint swelling, joint stiffness Neurological: Denies numbness, tingling Integumentary: Denies rashes, skin lesions Endocrine: Denies fatigue, weight loss Written informed consent obtained from the patient. Risks (including but not limited to perforation, infection, bloating, bleeding, need for emergent surgeryand loss of life), benefits and alternatives explained and questions answered. The patient verbalized understanding. Based on history patient is an appropriate candidate for the procedure. Willy Lambert MD Documented By: Willy Lambert MD 01/14/2445 Signed By: <Electronically signed by Willy Lambert MD> 01/14/24845 [facility] Work Phone: History general Narrative - Reported* Type Description [...] INJ URY, 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, 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 [facility] Other History general Narrative - Reported* Type [...] INJ URY, 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, 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 [facility] Other History general Narrative - Reported* Type [...] 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 Hospitalization History SEE ABOVE [facility] Other Hospital Discharge instructions No data available for this section [facility] Progress note No data available for this section [facility] Summary Purpose Family History No Family [...] son Family history of mental disorder Unknown Relationship Condition Age at Onset Recorded Date/T deandra father Neoplasm of brain Unknown mother Rheumatic fever Unknown brother Malignant neoplasm of urinary bladder Unk nown father Unknown mother Unknown son Family history of mental disorder Unknown Relationship Condition Age at Onset Recorded Date/T deandra father Neoplasm of brain Unknown Unknown mother Rheumatic fever Unknown brother Malignant neoplasm of urinary bladder Unk nown son Family history of mental disorder Unknown [...] I71.4 1 YR F/U AAA; CTA AT [facility] Chief Complaint I71.4 1 YR F/U AAA; CTA AT [facility] RENAL 6 month f/u Reason for Visit Status post endovasc ular aneurysm repair (EVAR) Abdominal aortic aneurysm without rupture Anemia Chronic kidney disease, stage 3b Hyperlipidemia Hypertensive nephropathy Iron deficiency Obstructive nephropathy Chief Complaint RENAL 6 month f/u e78.5 Reason for Visit Abdominal aortic ane urysm without rupture Anemia Chronic kidney disease, stage 3b Hyperlipidemia Hypertensive nephropathy Iron deficiency Obstructive nephropathy Chief Complaint RENAL 6 month f/u e78.5 Positive cologuard Positive cologuard Reason for Visit Abdominal aortic ane urysm without rupture Anemia Chronic kidney disease, stage 3b Hyperlipidemia Hypertensive nephropathy Iron deficiency Obstructive nephropathy Chief Complaint e78.5 Positive cologuard Positive cologuard stemi. stemi. stemi. stemi. Reason for Visit Abdominal aortic ane urysm without rupture Atrial fibrillation, new onset Chronic kidney disease, stage 3b Chronic systolic heart failure Delirium Hyperlipidemia Hypertension Hypertensive nephropathy Hypotension Impaired mobility and activities of daily living Iron deficiency Ischemic cardiomyopathy Sleep-wake cycle disorder ST elevation myocardial infarction (STEMI) of anterior wall Status post endovascular aneurysm repair (EVAR) Stented coronary artery Chief Complaint * ALEX ANDERSON is being [...] section and content) DATE CREATED AUTHOR 05/12/2021 [facility] Specialist DATE CREATED AUTHOR AUTHOR'S ORGANIZ ATION 09/23/2022 [facility] DATE CREATED AUTHOR AUTHOR'S ORGANIZ ATION 01/23/2023 [facility] DATE CREATED AUTHOR AUTHOR'S ORGANIZ ATION 01/23/2023 [facility] DATE CREATED AUTHOR AUTHOR'S ORGANIZ ATION 11/05/2023 [facility] DATE CREATED AUTHOR AUTHOR'S ORGANIZ ATION 11/20/2023 [facility] EPIC DATE CREATED AUTHOR AUTHOR'S ORGANIZ ATION 01/19/2024 [facility] DATE CREATED AUTHOR AUTHOR'S ORGANIZ ATION 01/25/2024 [facility] Patient Care team informatio n (unrecognized section and content) Team Status: Active Member Role Status Dates Stanley Emerson MD Primary Care Provider Active Team Status: Inactive Member Role Status Dates Stanley Emerson MD Primary Care Provider Active Start: December 26, 2023 End: December 26, 2023 Teo Stokes MD Attending Provider Active St art: December 26, 2023 End: December 26, 2023 Team Status: Inactive Member Role Status Dates Stanley Emerson MD Primary Care Provider Active Start: January 14, 2024 End: January 14, 2024 Willy Lambert MD Attending Provider Active S tart: January 14, 2024 End: January 14, 2024 Team Status: Active Member Role Status Dates Stanley Emerson MD Primary Care Provider Active Start: January 14, 2024 Willy Lambert MD Attending Provider, Other Provider Active Start: January 14, 2024 Team Status: Inactive Member Role Status Dates Stanley Emerson MD Primary Care Provider Active Start: January 16, 2024 End: January 23, 2024 Nas Pruett DO Admit Provider, Att ending Provider Active Start: January 16, 2024 End: January 23, 2024 Myesha Feliz MD Other Provider Active Start: Au estefania 2023 End: January 23, 2024 Rogelio Rai MD Other Provider Active Start: A ugust 2023 End: January 23, 2024 Heaven Truong APRN Other Provider Active St art: January 16, 2024 End: January 23, 2024 Mckay Yeboah Jr, DO Other Provider Active S tart: January 16, 2024 End: January 23, 2024 Ryley Hoyt MD Other Provider Active Start: January 16, 2024 End: January 23, 2024 Ledy Randle , ROCIO Other Provider Active Star t: January 16, 2024 End: January 23, 2024 Thu Alvarez , ROCIO Other Provider Active Start : January 16, 2024 End: January 23, 2024 Jen Delgado , ROCIO Other Provider Active Star t: January 16, 2024 End: January 23, 2024 Jennifer Rogel , ROCIO Other Provider Active Start: A ugust 2023 End: January 23, 2024 Daisha Li RN Other Provider Active Start: Au estefania 2023 End: January 23, 2024 Radha Berrios MD Other Provider Active Start: January 16, 2024 End: January 23, 2024 Khanh Deulca DO Other Provider Active Start : January 16, 2024 End: January 23, 2024 Ronald Martinez MD Other Provider Active Start : January 16, 2024 End: January 23, 2024 Bernabe Cr DO Other Provider Active Start: January 16, 2024 End: January 23, 2024 Jerrell Gonsales MD Other Provider Active Start: January 16, 2024 End: January 23, 2024 Mary Ellen Zambrano MD Other Provider Active Start : January 16, 2024 End: January 23, 2024 Anand Mckenzie MD Other Provider Active Start: A ugust 2023 End: January 23, 2024 Roseann Velasco APRN Other Provider Active Start: January 16, 2024 End: January 23, 2024 Jagjit Swenson MD Other Provider Active Start: January 16, 2024 End: January 23, 2024 Pawel Sanford MD Other Provider Active Start: A ugust 2023 End: January 23, 2024 Taz Barnes MD Other Provider Active Start: January 16, 2024 End: January 23, 2024 Rupa Tran MD Other Provider Active Start: January 16, 2024 End: January 23, 2024 Roldan Masterson DO Other Provider Active Start: January 16, 2024 End: January 23, 2024 Kyle Ivy MD Other Provider Active Start: estefania 2023 End: January 23, 2024 Jad Jaffe MD Other Provider Active Start: Dec End: January 23, 2024 FARHAT Gayle Other Provider Active St art: January 16, 2024 End: January 23, 2024 Valdo Sandra APRN Other Provider Active Star t: January 16, 2024 End: January 23, 2024 Rob Almazan MD Other Provider Active Start: January 16, 2024 End: January 23, 2024 Danielito Claros MD Other Provider Active Start: estefania 2023 End: January 23, 2024 Seb Bonds MD Other Provider Active Start: Dec End: January 23, 2024 Basilio Tam MD Other Provider Active Star t: January 16, 2024 End: January 23, 2024 Reji Garcia MD Other Provider Active Start: A ugust 2023 End: January 23, 2024 Lydia Rene DO Other Provider Active Start: Au estefania 2023 End: January 23, 2024 Lucas Dumas DO Other Provider Active Start : January 16, 2024 End: January 23, 2024 Cortney Watkins APRN Other Provider Active Start: January 16, 2024 End: January 23, 2024 Jakob Lomax DO Other Provider Active Start: January 16, 2024 End: January 23, 2024 Nick Ken MD Other Provider Active Sta rt: January 16, 2024 End: January 23, 2024 Yaz Beard APRN Other Provider Active Start : January 16, 2024 End: January 23, 2024 Venus Man APRN Other Provider Active St art: January 16, 2024 End: January 23, 2024 Joaquim Mayo MD Other Provider Active Start: A ugust 2023 End: January 23, 2024 Shane Durham MD Other Provider Active S tart: January 16, 2024 End: January 23, 2024 Tico Whitehead DO Other Provider Active Star t: January 16, 2024 End: January 23, 2024 Alonso Maher DO Other Provider Active Start: January 16, 2024 End: January 23, 2024 Humberto Bonds MD Other Provider Active Start: January 16, 2024 End: January 23, 2024 Chi Smith MD Other Provider Active Start: January 16, 2024 End: January 23, 2024 Chen Najera APRN Other Provider Active Star t: January 16, 2024 End: January 23, 2024 Dana Haddad MD Other Provider Active Start: A ugust 2023 End: January 23, 2024 Emmanuel Silverman MD Other Provider Active Start: Au estefania 2023 End: January 23, 2024 Monisha Moore RN Other Provider Active Start: A ugust 2023 End: January 23, 2024 Team Status: Active Member Role Status Dates Stanley Emerson MD Primary Care Provider Active Start: January 16, 2024 Nas Pruett DO Other Provider Active Start : January 16, 2024 Dora Prado APRN ACNP- Other Provider Active Start: January 16, 2024 Isaac Edwards MD Other Provider Active Start: January 16, 2024 Magda Velasquez MD Other Provider Active St art: January 16, 2024 Bob Hackett MD Other Provider Active Start: A ugust 2023 Dean Perry DO Other Provider Active Start: January 16, 2024 Aayush Gallo DO Other Provider Active Start: January 16, 2024 Fermin Shukla MD Other Provider Active Start: A ugust 2023 Kashmir Gonzales MD Other Provider Active Start: January 16, 2024 Justina Lara MD Attending Provider, Other Provider Active Start: January 16, 2024 Shania Armijo MD Other Provider Active Start: January 16, 2024 Team Status: Active Member Role Status Dates Stanley Emerson MD Primary Care Provider Active Start: January 23, 2024 Nas Pruett DO Admit Provider, [facility] er Provider Active Start: January 23, 2024 Myesha Feliz MD Other Provider Active Start: Au estefania 2023 Rogelio Rai MD Other Provider Active Start: A ugust 2023 Heaven Truong APRN Other Provider Active St art: January 23, 2024 Mckay Yeboah Jr, DO Other Provider Active S tart: January 23, 2024 Ryley Hoyt MD Other Provider Active Start: January 23, 2024 Ledy Randle RN Other Provider Active Star t: January 23, 2024 Thu Alvarez RN Other Provider Active Start : January 23, 2024 Jen Delgado RN Other Provider Active Star t: January 23, 2024 Jennifer Rogel RN Other Provider Active Start: A ugust 2023 Daisha Li RN Other Provider Active Start: Au estefania 2024 Radha Berrios MD Other Provider Active Start: January 23, 2024 Khanh Deluca , Other Provider Active Start : January 23, 2024 Ronald Martinez MD Other Provider Active Start : January 23, 2024 Bernabe Cr DO Other Provider Active Start: January 23, 2024 Jerrell Gonsales MD Other Provider Active Start: January 23, 2024 Mary Ellen Zambrano MD Other Provider Active Start : January 23, 2024 Aannd Mckenzie MD Other Provider Active Start: A ugust 2023 Roseann Velasco APRN Other Provider Active Start: January 23, 2024 Jagjit Swenson MD Other Provider Active Start: January 23, 2024 Pawel Sanford MD Other Provider Active Start: A ust 2023 Taz Barnes MD Other Provider Active Start: January 23, 2024 Rupa Tran MD Other Provider Active Start: January 23, 2024 Roldan Masterson DO Other Provider Active Start: January 23, 2024 Kyle Ivy MD Other Provider Active Start: 2023 Jad Jaffe MD Other Provider Active Start: Dec FARHAT Gayle Other Provider Active St art: January 23, 2024 Valdo Sandra APRN Other Provider Active Star t: January 23, 2024 Rob Almazan MD Other Provider Active Start: January 23, 2024 Danielito Claros MD Other Provider Active Start: 2023 Seb Bonds MD Other Provider Active Start: Dec Basilio Tam MD Other Provider Active Star t: January 23, 2024 Reji Garcia MD Other Provider Active Start: A ust 2023 Lydia Rene DO Other Provider Active Start: 2023 Lucas Dumas DO Other Provider Active Start : January 23, 2024 Cortney Watkins APRN Other Provider Active Start: January 23, 2024 Jakob Lomax DO Other Provider Active Start: January 23, 2024 Nick Ken MD Other Provider Active Sta rt: January 23, 2024 Yaz Beard APRN Other Provider Active Start : January 23, 2024 Venus Man APRN Other Provider Active St art: January 23, 2024 Joaquim Mayo MD Other Provider Active Start: A ugust 2023 Shane Duhram MD Other Provider Active S tart: January 23, 2024 Tico Whitehead , Other Provider Active Star t: January 23, 2024 Alonso Maher DO Other Provider Active Start: January 23, 2024 Humberto Bonds MD Other Provider Active Start: January 23, 2024 Chi Smith MD Other Provider Active Start: January 23, 2024 Chen Najera APRN Other Provider Active Star t: January 23, 2024 Dana Haddad MD Other Provider Active Start: A ugust 2023 Emmanuel Silverman MD Other Provider Active Start: [facility] 2023 Monisha Moore RN Other Provider Active Start: A ugust 2023 Isaac Edwards MD Attending Provider Active Start: January 23, 2024 Team Status: Active Member Role Status Dates Stanley Emerson MD Primary Care Provider Active Start: January 23, 2024 Nas Pruett DO Admit Provider, [facility] er Provider Active Start: January 23, 2024 Myesha Feliz MD Other Provider Active Start: estefania 2023 Rogelio Rai MD Attending Provider, Other Provider Active Start: January 23, 2024 Heaven Truong APRN Other Provider Active St art: January 23, 2024 Mckay Yeboah Jr, DO Other Provider Active S tart: January 23, 2024 Ryley Hoyt MD Other Provider Active Start: January 23, 2024 Ledy Randle RN Other Provider Active Star t: January 23, 2024 Thu Alvarez , ROCIO Other Provider Active Start : January 23, 2024 Jen Delgado , ROCIO Other Provider Active Star t: January 23, 2024 Jennifer Rogel RN Other Provider Active Start: A ugust 2023 Daisha Li RN Other Provider Active Start: estefania 2023 Radha Berrios MD Other Provider Active Start: January 23, 2024 Khanh Deluca , Other Provider Active Start : January 23, 2024 Ronald Martinez MD Other Provider Active Start : January 23, 2024 Bernabe Cr DO Other Provider Active Start: January 23, 2024 Jerrell Gonsales MD Other Provider Active Start: January 23, 2024 Mary Ellen Zambrano MD Other Provider Active Start : January 23, 2024 Anand Mckenzie MD Other Provider Active Start: A ugust 2023 Roseann Velasco APRN Other Provider Active Start: January 23, 2024 Jagjit Swenson MD Other Provider Active Start: January 23, 2024 Pawel Sanford MD Other Provider Active Start: A ugust 2023 Taz Barnes MD Other Provider Active Start: January 23, 2024 Rupa Tran MD Other Provider Active Start: January 23, 2024 Roldan Masterson DO Other Provider Active Start: January 23, 2024 Kyle Ivy MD Other Provider Active Start: 2023 Jad Jaffe MD Other Provider Active Start: Dec Vidya Hernandez NP-C Other Provider Active St art: January 23, 2024 Valdo Sandra APRN Other Provider Active Star t: January 23, 2024 Rob Almazan MD Other Provider Active Start: January 23, 2024 Danielito Claros MD Other Provider Active Start: 2023 Seb Bonds MD Other Provider Active Start: Dec Basilio Tam MD Other Provider Active Star t: January 23, 2024 Reji Garcia MD Other Provider Active Start: A ugust 2023 Lydia Rene DO Other Provider Active Start: estefania 2023 Lucas Duams DO Other Provider Active Start : January 23, 2024 Cortney Watkins APRN Other Provider Active Start: January 23, 2024 Jakob Lomax DO Other Provider Active Start: January 23, 2024 Nick Ken MD Other Provider Active Sta rt: January 23, 2024 Yaz Beard APRN Other Provider Active Start : January 23, 2024 Venus Man APRN Other Provider Active St art: January 23, 2024 Joaquim Mayo MD Other Provider Active Start: A ugust 2023 Shane Durham MD Other Provider Active S tart: January 23, 2024 Tico Whitehead , Other Provider Active Star t: January 23, 2024 Alonso Maher , Other Provider Active Start: January 23, 2024 Humberto Bonds MD Other Provider Active Start: January 23, 2024 Chi Smith MD Other Provider Active Start: January 23, 2024 Chen Najera APRN Other Provider Active Star t: January 23, 2024 Dana Haddad MD Other Provider Active Start: A ugust 2023 Emmanuel Silverman MD Other Provider Active Start: Au estefania 2023 Monisha Moore RN Other Provider Active Start: A ugust 2023 Team Status: Active Member Role Status Dates Stanley [facility] Attending Provider Active Start: September 30, 2023 Team Status: Active Member Role Status Dates Stanley Emerson MD Primary Care Provider Active Start: October 16, 2023 Celia Griffin MD Attending Provider Active Star t: October 16, 2023 Team Status: Inactive Member Role Status Dates Stanley Emerson MD Primary Care Provider Active Start: October 22, 2023 End: October 22, 2023 Celia Griffin MD Attending Provider Active Star t: October 22, 2023 End: October 22, 2023 Team Status: Inactive Member Role Status Dates Stanley Emerson MD Primary Care Provider Active Margarito Valentine MD Attending Provider Active Team Status: Inactive Member Role Status Dates Stanley Emerson MD Primary Care Provider Active Taz Barnes MD Admit Provider Active Margarito Valentine MD Other Provider Active Janice Gonzalez MD Other Provider Active Bernabe Cr DO Attending Provider Active Team Status: Inactive Member [...] Active Celia Griffin MD Attending Provider Active Toe Stokes MD Referring Provider Active Team Status: [...] f/u EVAR4 [facility] FOLLOW UP; [facility] 08/16/22RENAL 6 month Follow upBPREFILL Goals [...] BE BASED ON THE PRIMARY CLINICAL RECORDS. [facility]. provides no warranty or guarantee of the accuracy or completeness of information in this document.
--- NOTE | 2024-01-25 18:30 | ED.MALEGU1 ---
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 The , who is an excellent historian indicates that it is really not been draining much urine. We immediately did a bladder scan on his arrival here and shows nearly 300 cc of urine. He has some discomfort but he is not miserable. He has longstanding Villarreal catheter care and is under the care of Dr. Samuels our local urology group. He recently was at a different hospital and had cardiac catheterization with coronary stent placed for recent heart attack. He is currently taking Brilinta and Eliquis. She has not noticed any blood in the catheter bag. She states that he got antibiotic when he was in the hospital was but was not discharged on an antibiotic. She has not noticed any clots in the bag. He has not had fever shakes or chills. He has no other complaints and is recovering from his coronary syndrome. Related Data Home Medications ?Medication ?Instructions ?Recorded ?Confirmed albuterol sulfate 90 mcg/actuation 1 inh inhalation Q6H PRN 04/13/23 01/16/24 aerosol inhaler bronchospasm aspirin 81 mg tablet,delayed 81 mg PO DAILY 04/13/23 01/16/24 release (Ecotrin Low Strength) metoprolol tartrate 50 mg tablet 50 mg PO Q12H 04/13/23 01/16/24 amlodipine 5 mg tablet 5 mg PO DAILY 07/30/23 01/16/24 spironolactone 25 mg tablet 25 mg PO DAILY 09/26/23 01/16/24 simvastatin 10 mg tablet 10 mg PO BEDTIME 01/16/24 01/16/24 Allergies Allergy/AdvReac Type Severity Reaction Status Date / Time No Known Drug Allergies Allergy Verified 09/26/23 20:49 PFSH PFSH Social History Smoking status: Current every day smoker Exam Narrative Exam Narrative: Awake alert oriented x 3 very pleasant he is hard of hearing . He is oriented. Bladder scan is noted as above. He does not have any abdominal peritoneal findings. There is no leakage of urine around the Villarreal catheter. Belly is soft to palpation. His lungs are clear and his heart sounds are normal. He does not have any chest pain at this time. Constitutional Vital Signs, click to edit/add: Last Vital Signs Temp 98.1 F 01/25/24 17:06 Pulse 70 01/25/24 17:06 Resp 18 01/25/24 17:06 BP 111/75 01/25/24 17:06 Pulse Ox 97 01/25/24 17:06 O2 Del Method Room Air 01/25/24 17:06 Course Vital Signs Vital signs: Vital Signs Temperature 98.1 F 01/25/24 17:06 Pulse Rate 70 01/25/24 17:06 Respiratory Rate 18 01/25/24 17:06 Blood Pressure 111/75 01/25/24 17:06 Pulse Oximetry 97 01/25/24 17:06 Oxygen Delivery Method Room Air 01/25/24 17:06 Temperature 98.1 F 01/25/24 17:06 Pulse Rate 70 01/25/24 17:06 Respiratory Rate 18 01/25/24 17:06 Blood Pressure 111/75 01/25/24 17:06 Pulse Oximetry 97 01/25/24 17:06 Oxygen Delivery Method Room Air 01/25/24 17:06 MDM - Male Genitourinary MDM Narrative Medical decision making narrative: We will go ahead and change out his Villarreal catheter. We will restart him on Cipro. He is to drink normal amounts of fluids. He is to follow-up with his local urologist as needed. Discharge Plan Discharge Stand Alone Forms: Work/School Release, Portal Instructions Chief Complaint: Urogenital-Male Clinical Impression: Urinary catheter (Villarreal) change required Patient Disposition: Home, Self-Care Time of Disposition Decision: 18:33 Prescriptions / Home Meds: No Action simvastatin 10 mg tablet 10 mg PO BEDTIME albuterol sulfate 90 mcg/actuation HFA aerosol inhaler 1 inh INHALATION Q6H PRN (Reason: bronchospasm) metoprolol tartrate 50 mg tablet 50 mg PO Q12H aspirin [Ecotrin Low Strength] 81 mg tablet,delayed release (DR/EC) 81 mg PO DAILY amlodipine 5 mg tablet 5 mg PO DAILY spironolactone 25 mg tablet 25 mg PO DAILY Print Language: Maltese Additional Instructions: Cipro/follow-up with urology as necessary Referrals: NICHOLAS EMERSON [Primary Care Provider] - 1 week
[2024-01-25] MEDS: CIPROFLOXACIN HCL 500 MG TABLET PO (18:54)
== END 2024-01-25 19:04 | disposition home or self-care (01) ==
PROVIDERS: Emergency Provider Emergency Medicine Emergency Medical Services; PCP Family Medicine
DX: Z46.6 Encounter for fitting and adjustment of urinary device (principal); T83.098A Other mechanical complication of other urinary catheter, initial encounter; I25.2 Old myocardial infarction; Z95.5 Presence of coronary angioplasty implant and graft; Z79.01 Long term (current) use of anticoagulants; F17.200 Nicotine dependence, unspecified, uncomplicated
CPT/HCPCS: 51798; 99283

== ENCOUNTER 2024-02-11 13:24 | Outpatient (REF) | payer MEDICARE, OTHER, SELFPAY ==
[2024-02-11 13:57] LABS: Anion Gap 12.7; Aspartate Amino Transferase 16 U/L (15-37); BUN Creatinine Ratio 14.4; Carbon Dioxide 29.6 mmol/L (21.0-32.0); Chloride 102 mmol/L (98-107); Estimated GFR (African America 39 (>=60); Estimated GFR (Non-African Ame 32 (>=60); Glucose 108 mg/dL (74-106); Potassium 3.3 mmol/L (3.5-5.1); Sodium 141 mmol/L (136-145); Thyroid Stimulating Hormone 0.372 uIU/mL (0.358-3.740)
== END 2024-02-11 13:25 | disposition home or self-care (01) ==
LOC: LAB 13:24
PROVIDERS: PCP Family Medicine; Visit Provider Internal Medicine Cardiovascular Disease
DX: I48.91 Unspecified atrial fibrillation (principal)
CPT/HCPCS: 36415; 80048; 84443; 84450

== ENCOUNTER 2024-03-04 13:43 | Outpatient (OUT) | payer MEDICARE, OTHER, SELFPAY | END 2024-03-04 13:44 | disposition home or self-care (01) | LOC: CARD 03-15 13:43 | PROVIDERS: PCP Family Medicine; Visit Provider Internal Medicine Cardiovascular Disease | DX: I48.0 Paroxysmal atrial fibrillation (principal); Z79.899 Other long term (current) drug therapy | CPT/HCPCS: 36415; 85018 ==

== ENCOUNTER 2024-03-09 11:45 | Outpatient (RCR) | payer MEDICARE, OTHER, SELFPAY | END 2024-03-25 23:36 | disposition home or self-care (01) | LOC: MM 11:45 | PROVIDERS: PCP Family Medicine; Visit Provider Internal Medicine | DX: Z51.81 Encounter for therapeutic drug level monitoring (principal); Z79.01 Long term (current) use of anticoagulants; I48.0 Paroxysmal atrial fibrillation | CPT/HCPCS: 85610; G0463 ==

== ENCOUNTER 2024-03-23 12:39 | Outpatient (OUT) | payer MEDICARE, OTHER, SELFPAY ==
[2024-03-23 13:00] LABS: Hemoglobin 9.5 g/dL (14.0-18.0)
[2024-03-23] MEDS: ALBUTEROL SULFATE 2.5 MG/3 ML VIAL NEB IH (14:16)
--- NOTE | 2024-03-23 14:17 | RT_ITS ---
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 Findings were considered accurate and reproducible, with exception of DLCO which did not meet ATS standards and was ultimately not obtained. Both pre- and post-bronchodilator values utilized for spirometry. No prior studies available for comparison. Spirometry (based on pre-bronchodilator values): -FEV1/FVC: Reduced @ 48% -FEV1: Severely reduced @ 49% -FVC: Reduced @ 75% -There is a positive bronchodilator response in FEV1 and FVC. Lung volumes by plethysmography: -RV: Increased @ 171% -TLC: Normal @ 108% Diffusion capacity: -Unable to obtain Flow-volume loop: -Severe obstructive pattern Impressions: -Spirometry suggests severe obstruction. There is a positive bronchodilator response. An elevated RV suggests air trapping. Overall study suggests either asthma or COPD with a positive bronchodilator response. Clinical correlation required. Electronically Signed On 03-24-2024 17:50:01 EDT by Aayush Gallo
== END 2024-03-23 12:40 | disposition home or self-care (01) ==
LOC: CARD 12:41
PROVIDERS: PCP Family Medicine; Visit Provider Internal Medicine Cardiovascular Disease
DX: I48.0 Paroxysmal atrial fibrillation (principal); Z79.899 Other long term (current) drug therapy
CPT/HCPCS: 36415; 85018; 94060; 94726; 94729

== ENCOUNTER 2024-03-26 10:51 | Outpatient (RCR) | payer MEDICARE, OTHER, SELFPAY | END 2024-04-24 23:59 | disposition home or self-care (01) | LOC: MM 10:51 | PROVIDERS: PCP Family Medicine; Visit Provider Internal Medicine | DX: Z51.81 Encounter for therapeutic drug level monitoring (principal); Z79.01 Long term (current) use of anticoagulants; I48.0 Paroxysmal atrial fibrillation | CPT/HCPCS: 85610; G0463; J3430 ==

== ENCOUNTER 2024-04-25 10:55 | Outpatient (RCR) | payer MEDICARE, OTHER, SELFPAY | END 2024-05-25 09:37 | disposition home or self-care (01) | LOC: MM 10:55 | PROVIDERS: PCP Family Medicine; Visit Provider Internal Medicine | DX: Z51.81 Encounter for therapeutic drug level monitoring (principal); Z79.01 Long term (current) use of anticoagulants; I48.0 Paroxysmal atrial fibrillation | CPT/HCPCS: 85610; G0463 ==

== ENCOUNTER 2024-04-28 00:39 | Emergency (ER) | payer MEDICARE, OTHER, SELFPAY ==
[2024-04-28 00:44] VITALS: BP 130/79; PULSE 96; TEMP 36.6; O2SAT 98; BMI 27.0
--- OUTSIDE RECORDS SUMMARY | 2024-04-28 00:50 | XMS_ITS | CCD ---
Author Organization [facility] Care Team Providers Care Internal Controls Analyst Name Role Phone Stanley Emerson Unavailable Unavailable Unavailable STANLEY EMERSON Primary Care Physician Unavail able MD Stanley Emerson Primary Care Provider [phone] MD Taz Barnes Admit Provider MD Margarito Valentine Other Provider MD Janice Gonzalez Other Provider DO Bernabe Cr Attending Provider MD Margarito Valentine Attending Provider MD Margarito Valentine Admit Provider Celia Griffin Unavailable Margarito Valentine Unavailable MOMO Omalley Attending Provider MD Stanley Emerson Primary Care Provider [phone] MD Taz Barnes Admit Provider MD Margarito Valentine Other Provider [phone] MD Janice Gonzalez Other Provider DO Bernabe [...] Unavailable JACOBS ., DR MONTALVO Consulting Unavailable JAZZY CATES [...] Unavailable HAY ., DR GALEANO Consulting Unavailable Al, Dr. Teo Poon Attending Araceli vailable Idania, Dr. Stanley Mercado Primary Care Unava ilable Hemeyer, Dr. Stanley Mercado Primary Care Unava ilable Hemeyer, Dr. Stanley Mercado Primary Care Unava ilable Al, Dr. Teo Poon Attending Araceli vailable Al, Dr. Teo Poon Referring Araceli vailable Idania, Dr. Stanley Mercado Primary Care Unava ilable Hemeyer, Dr. Stanley Mercado Primary Care Unava ilable Al, Dr. Teo Poon Referring Araceli vailable Al, Dr. Teo Poon Attending Araceli vailable Al, Dr. Teo Poon Attending Araceli vailable Hemeyer, Dr. Stanley Mercado Primary Care Elliot Emerson, Dr. Stanley Mercado Primary Care Unava ilayo Al, Dr. Teo Poon Attending Araceli vailadiana Al, Dr. Teo Poon Attending Araceli vailadiana Emerson, Dr. Stanley Mercado Primary Care Araceliva MD Stanley Gomez Primary Care Provider [phone] MD Celia Griffin Attending Provider MD Teo Al Referring Provider MD Stanley Emerson Primary Care Provider MD Margarito Valentine Attending Provider MD Stanley Emerson Primary Care Provider MD Teo Al Attending Provider MD Willy Lambert Attending Provider DO Nas Pruett Admit Provider DO Nas Pruett Attending Provider MD Myesha Feliz Other Provider MD Rogelio Rai Other Provider WATSON Truong Other Provider DO Mckay Yeboah Jr Other Provider MD Ryley Hoyt Other Provider [phone] ROCIO Randle Other Provider Unavailable ROCIO Alvarez Other Provider Unavailable ROCIO Delgado Other Provider Unavailable ROCIO Rogel Other Provider Unavailable ROCIO Li Other Provider Unavailable MD Radha Berrios Other Provider DO Khanh Deluca Other Provider MD Ronald Martinez Other Provider DO Bernabe Cr Other Provider MD Jerrell Gonsales Other Provider [phone] MD Mary Ellen Zambrano Other Provider MD Anand Mckenzie Other Provider Unavailable WATSON Velasco Other Provider MD Jagjit Swenson Other Provider MD Pawel Sanford Other Provider MD Taz Barnes Other Provider MD Rupa Tran Other Provider DO Roldan Masterson Other Provider MD Kyle Ivy Other Provider MD Jad Jaffe Other Provider FARHAT Hernandez-C Vidya Rich Other Provider WATSON Sandra Other Provider Unavailable MD Rob Almazan Other Provider MD Danielito Claros Other Provider MD Seb Bonds Other Provider MD Basilio Tam Other Provider Unavailable MD Reji Garcia Other Provider DO Lydia Rene Other Provider DO Lucas Dumas Other Provider WATSON Watkins Other Provider DO Jakob Lomax Other Provider MD Nick Ken Other Provider WATSON Beard Other Provider WATSON Man Venus C Other Provider MD Joaquim Mayo Other Provider MD Shane Durham Other Provider DO Tico Whitehead Other Provider DO Alonso Maher Other Provider MD Humberto Bonds P Other Provider MD Chi Smith Other Provider WATSON Najera Other Provider [phone] MD Dana Haddad Other Provider MD Emmanuel Silverman Other Provider ROCIO Moore Other Provider Unavailable Stanley Emerson MD Primary Care Provider Stanley Emerson MD Unavailable Stanley Emerson MD Primary Care Provider Dora Santiago LPN Unavailable WATSON Bailey Attending Provider WATSON Truong Other Provider [phone] STANLEY EMERSON Attending Unavailable STANLEY EMERSON Attending Unavailable STANLEY EMERSON Attending Unavailable STANLEY EMERSON Attending Unavailable STANLEY EMERSON Attending Unavailable STANLEY EMERSON Attending Unavailable STANLEY EMERSON Attending Unavailable STANLEY EMERSON Attending Unavailable KATIA JACOBS Referring Unavailable Stanley Emerson MD Unavailable Stanley Emerson MD Primary Care Provider [phone] JACOBS, Katia R Attending Unavailable JACOBS, Katia R Attending Unavailable JACOBS, Katia R Attending Unavailable JACOBS, Katia R Attending Unavailable JACOBS, Katia R Attending Unavailable JACOBS, Katia R Attending Unavailable JACOBS, Katia R Attending Unavailable Orzech, Blanca X Attending Unavailable JACOBS, Katia R Referring Unavailable JACOBS, Katia R Admitting Unavailable JACOBS, Katia R Attending Unavailable JACOSB, Katia R Admitting Unavailable JACOBS, Katia R Attending Unavailable Margarito Valentine Admitting Unavailabl e Margarito Valentine Attending Unavailabl e Stanley Emerson Primary Care Unavailable Stanley Emerson Primary Care Unavailable Rosalie Bailey Admitting Unavailable Rosalie Bailey Attending Unavailable Stanley Emerson Primary Care Unavailable Ledy Randle Consulting Unavailable Nas Pruett Attending Unavailable Nas Pruett Admitting Unavailable Thu Alvarez Consulting Unavailable Jen Delgado [...] Unavailable Kyle Ivy Consulting Unavailable Jad Jaffe Consulting Unavailable Vidya Hernandez Consulting Unavailable Valdo Sandra Consulting Unavailable Rob Almazan Consulting Unavailab Danielito Campoverde Consulting Unavailable Seb Bonds Consulting Unavailable Basilio Tam Consulting Unavailable Reji Garcia Consulting Unavailable Lydia Rene Consulting Unavailable Lucas Dumas Consulting Unavailable Cortney Watkins Consulting Unavailable Jakob Lomax Consulting Unavailable Nick Ken Consulting Unavailable Yaz Beard Consulting Unavailable Venus Man Consulting Unavailable Alaadrianaad Alasergo Consulting Unavailable Shane Durham Consulting Unavailable Tcio Whitehead Consulting Unavailable Alonso Maher Consulting Unavailable Humberto Bonds Consulting Unavailable Chi Smith Consulting Unava ilable Chen Najera Consulting Unavailable Dana Haddad Consulting Unavailable Emmanuel Silverman Consulting Unavailable Monisha Moore Consulting Unavailable Myesha Feliz Consulting Unavailable Rogelio Rai Consulting Unavailable Heaven Truong Consulting Unavailable Mckay Yeboah Jr Consulting UnavailRyley Parra Consulting Unavaila Willy Pro Admitting Unavailable Willy Lambert Attending Unavailable Stanley Emerson J Primary Care Unavailable Teo Al Attending Unavailable Teo Al Admitting Unavailable Idania, Stanley J Primary Care Unavailable TEO AL Attending Unavailable IDANIA, EDRENÉ J Primary Care Unavailable TEO AL Referring Unavailable STANLEY EMERSON J Primary Care Unavailable Katia JACOBS Attending Unavailable Katia JACOBS Attending Unavailable Blanca Boles Attending Unavailable Fabi Gomez Attending Unavailable Fabi Gomez Attending Unavailable Blanca Boles Attending Unavailable Katia JACOBS Admitting Unavailable Katia JACOBS Attending Unavailable Allergies Allergy Classification Reported Allergen(s) Allergy Type Date of Onset Reaction(s) Facility (2 sources) No Known Medication Allergies; Translations: [No Known Medication Allergies] Propensity to adverse reactions (disorder) [facility] Repository Medications Current Medications Medication Drug Class(es) [...] take 1 tablet by mouth every hour [place] 325 mg-7.5 mg oral tablet 1 tab(s), Oral, Once, 1 tab(s), Refill(s) 0, Take 1 hour prior to procedure, [id number], 187, cm, 03/11/23 13:44:00 EDT, Height/Length Dosing, 93, kg, 03/11/23 13:44:00 EDT, Weight Dosing Start Date: 05/06/23 Status: Ordered [id number] 200 actuat albuterol 0.09 mg/actuat metered dose inhaler (20 sources) beta2-Adrenergic Agonist Start: 10-22-2023 take 1 puff(s) by inhalation every six hours Albuterol Sulfate Active 2 PUFF INHALATION Every 6 hours October 22, 2023 12:00am Start: 09-30-2023 End: 03-28-2024 take 2 puff(s) by inhalation every six hours for wheezing albuterol HFA 90 mcg/act inhaler Indications: Simple chronic bronchitis (CMS/HCC) Inhale 2 puffs every 6 (six) hours if needed for wheezing 54 g 1 09/30/2023 Active Start: 12-17-2022 take 2 puff(s) by in halation every four hours albuterol 90 mcg/actuation inhaler Inhale 2 puffs every 4 hours if needed. 12/17/2022 Active Start: 06-03-2022 Albuterol Sulf ate HFA 108 [...] as needed Inhalation every 4 hrs Active Albuterol (Eqv-ProAir HFA) 90 mcg/inh inhalation aerosol (20 sources) Start: 06-10-2022 Albuterol (Eqv -ProAir HFA) 90 mcg/inh inhalation aerosol Refill(s) 0 Start Date: 06/10/22 Status: Ordered amiodarone hydrochloride 200 mg oral tablet (17 sources) Antiarrhythmic Start: 02-10-2024 End: 02-09-2025 amiodarone 200 mg Tab 200 mg = 1 tab(s), Refills(s) 0 Start Date: 04/06/24 Status: Ordered Start: 01-23-2024 End: 03-08-2024 take 200 mg by mouth twice daily Amiodarone Discontinued 200 MG PO Twice daily January 23, 2024 12:00am March 08, 2024 12:52pm amLODIPine 5 mg oral tablet (20 sources) Dihydropyridine Calcium Channel Maldonado Start: 04-06-2024 take 5 mg by mouth twice daily amlodipine 5 mg, Oral, BID, Refills(s) 0 Start Date: 04/06/24 Status: Ordered Start: 12-31-2023 End: 01-23-2024 take 5 mg [...] a day for 90 days Mar, Active apixaban 2.5 mg oral tablet (16 sources) Factor Xa Inhibitor Start: 04-06-2024 Eliquis 2. 5 mg oral tablet Refills(s) 0 Start Date: 04/06/24 Status: Ordered Start: 01-23-2024 take 1 tablet by charlene th in the morning Eliquis 2.5 MG tablet Take 2.5 mg by mouth in the morning and 2.5 mg before bedtime. 01/23/2024 Active atorvastatin 80 mg oral tablet (16 sources) HMG-CoA Reductase Inhibitor Start: 01-16-2024 take 1 tablet by mouth once daily atorvastatin 80 mg Tab 80 mg = 1 tab(s), Oral, Daily, # 30 tab(s), Refills(s) 0 Start Date: 03/02/24 Status: Ordered cephalexin 500 mg oral capsule (5 sources) Cephalosporin Antibacterial Start: 10-03-2023 take 1 mg by mouth every twelve hours Keflex 500 mg Cap mg cap(s), Oral, q12hr, Refills(s) 0 Start Date: 10/03/23 Status: Ordered ciprofloxacin 500 mg oral tablet (8 sources) Quinolone Antimicrobial Start: 04-06-2024 take 1 tablet by mouth once daily Cipro 500 mg Tab = 1 tab(s), Oral, Daily, Refills(s) 0 Start Date: 04/06/24 Status: Ordered Start: 12-03-2022 take 1 tablet by charlene th once daily Cipro 250 mg Tab 250 mg = 1 tab(s), Oral, Daily, Take 1 tablet the day before the procedure and 1 tablet after the procedure, # 6 tab(s), Refills(s) 0, Pharmacy: [facility] #[id number], 187, cm, 09/18/22 14:39:00 EDT, Height/Length Dosing, 93, kg, 09/18/22 14:39:00 EDT, Weight Dosing Start Date: 12/03/22 Status: Ordered Start: 03-02-2023 take 1 tablet by charlene th once daily Cipro 250 mg Tab 250 mg = 1 tab(s), Oral, Daily, Take 1 tablet the day before the procedure and 1 tablet after the procedure, # 2 tab(s), Refills(s) 0, Pharmacy: [facility]/pharmacy #[id number], 187, cm, 06/11/22 9:11:00 EST, Height/Length Dosing, 93.5, kg, 06/11/22 9:11:00 EST, W... Start Date: 07/25/22 Status: Ordered clopidogrel (2 sources) [id number] Platelet Inhibitor Start: 04-06-2024 clopidogrel 75 mg, Refills(s) 0 Start Date: 04/06/24 Status: Ordered ferrous sulfate 140 mg extended release oral tablet (20 sources) Start: 03-02-2024 take 1 tablet by mouth once daily ferrous sulfate (as elemental iron) 45 mg oral tablet, extended release 45 mg = 1 tab(s), Oral, Daily, # 30 tab(s), Refills(s) 0 Start Date: 03/02/24 Status: Ordered Start: 10-22-2023 take 142 mg by mouth once kellen y Ferrous Sulfate Active 142 MG PO Daily October 22, 2023 12:00am take 1 tablet by mouth at [place] ferrous sulfate 325 (65 Fe) MG tablet Take 325 mg by mouth in the morning. Take with meals. Active FIBER ADULT GUMMIES PO (8 sources) take 2 tablets by mouth once daily FIBER ADULT GUMMIES PO Take 2 tablets by mouth Daily Active furosemide 40 mg oral tablet (15 sources) Loop Diuretic Start: 02-04-2024 take 1 tablet by mouth once daily furosemide 40 mg Tab TAKE 1 TABLET BY MOUTH EVERY DAY Start Date: 03/02/24 Status: Ordered inulin 2000 mg chewable tablet (5 sources) Start: 12-31-2023 take 1 tablet by [...] 16, 2022 1:00am January 16, 2024 2:11pm Multiple Vitamins-Minerals (Multivitamin Gummies Mens) chewable tablet (8 sources) Multiple Vitamin s-Minerals (Multivitamin Gummies Mens) chewable tablet Chew 1 tablet Daily Active multivitamin (Multiple Vitamins) tablet (1 source) take 1 tablet by mouth once daily multivitamin (Multiple Vitamins) tablet Take 1 tablet by mouth once daily. Active Multivitamin preparation (20 sources) Start: 10-22-2023 take 1 tablet by mouth once daily Multivitamin Active 1 TAB PO Daily October 22, 2023 12:00am Start: 07-31-2022 multivitamin D aily, Refill(s) 0 Start Date: 07/31/22 Status: Ordered Multivitamin Act raji nitroglycerin 0.4 mg sublingual tablet (16 sources) Nitrate Vasodilator Start: 01-16-2024 nitroglycerin 0.4 mg sublingual Tab 0.4 mg = 1 tab(s), SubLingual, q5min, PRN for chest pain, # 100 tab(s), Refills(s) 0 Start Date: 03/02/24 Status: Ordered 24 hr oxybutynin chloride 10 mg extended release oral tablet (1 source) Cholinergic Muscarinic Antagonist Start: 06-11-2023 take 1 tablet by mouth once daily oxybutynin 10 mg ER Tab 10 mg = 1 tab(s), Oral, Daily, # 14 tab(s), Refills(s) 0, Pharmacy: [facility]/pharmacy #[id number], 187, cm, 06/10/23 13:43:00 EST, Height/Length Dosing, 93, kg, 03/11/23 13:44:00 EDT, Weight Dosing Start Date: 06/11/23 Status: Ordered Klor-Con (9 sources) Start: 04-06-2024 Klor-Con 20 mEq, Refills(s) 0 Start Date: 04/06/24 Status: Ordered Start: 02-18-2024 End: 02-17-2025 potassium chloride CR (Klor- Con M20) 20 MEQ ER tablet Take 20 mEq by mouth in the morning. 02/18/2024 02/17/2025 Active Potassium Chloride (Klor-Con M20) 20 mEq tablet,ER particles/crystals (2 sources) Start: 03-08-2024 Potassium Chlo ride (Klor-Con M20) 20 mEq tablet,ER particles/crystals Active MEQ PO March 08, 2024 12:00am predniSONE 10 mg oral tablet (3 sources) predniSONE 10 MG as directed Orally take 4 tablets daily x3 days, take 3 tablets for 3 days, 2 tablets for 3 days, 1 tablet for 3 days Active Spacer/Aero-Holding Chambers (BreatheRite Dulce Spacer Adult) misc (8 sources) Start: 02-17-2024 Spacer/Aero-Ho lding Chambers (BreatheRite Dulce Spacer Adult) misc Indications: Simple chronic bronchitis (CMS/HCC) 2 puffs 4 (four) times a day as needed (sob and cough) 1 each 02/17/2024 Active Spacer/Aero-Holding Chambers device (8 sources) Spacer/Aero-Hold ing Chambers device every 8 (eight) hours. Active ticagrelor 90 mg oral tablet (16 sources) Start: 01-16-2024 take 1 tablet by mouth every twelve hours Brilinta 90 MG tablet Take 90 mg by mouth every 12 (twelve) hours 01/16/2024 Active Start: 01-16-2024 take 1 tablet by charlene th twice daily Brilinta (ticagrelor) 90 mg oral tablet 90 mg = 1 tab(s), Oral, BID, Refills(s) 0 Start Date: 03/02/24 Status: Ordered Vitafusion Fiber Well + Probiotics Gummies oral tablet, chewable (3 sources) Start: 03-02-2024 take 1 tablet by mouth once daily Vitafusion Fiber Well + Probiotics Gummies oral tablet, chewable tab(s), Oral, Daily, Refill(s) 0 Start Date: 03/02/24 Status: Ordered warfarin sodium 2 mg oral tablet (2 sources) Vitamin K Antagonist Start: 04-06-2024 warfarin 2 mg Tab 2 mg = 1 tab(s), Refills(s) 0 Start Date: 04/06/24 Status: Ordered water 1000 mg/ml irrigation solution (8 sources) Start: 04-06-2024 sterile water irrigation solution Refill(s) 0 Start Date: 04/06/24 Status: Ordered Start: 10-03-2023 sterile water irrigation solution See Instructions, 500 mL, Refill(s) 1, Irrigate villarreal catheter as needed with 60 cc sterile water, [facility]/pharmacy #[id number], 187, cm, 10/03/23 14:11:00 EDT, Height/Length Dosing, 93, kg, 10/03/23 14:11:00 EDT, Weight Dosing Start Date: 10/03/23 Status: Ordered Completed/Discontinued Medications Medication Drug Class(es) Dates Sig (Normalized) Sig (Original) aspirin 81 mg delayed release oral tablet (20 sources) Platelet Aggregation Inhibitor, Nonsteroidal Anti-inflammatory Drug Start: 10-22-2023 End: 01-23-2024 Aspirin (Adult Low Dose Aspirin) 81 mg tablet,delayed release (DR/EC) Discontinued 81 MG PO Daily October 22, 2023 12:00am January 23, 2024 2:59pm Start: 01-22-2023 take 1 tablet by charlene th once daily Aspirin 81 MG Oral Tablet Delayed Release TAKE 1 TABLET DAILY. Quantity: 90 Refills: 3 Ordered: 22-Jan-2023 Teo Al MD Start : 22-Jan-2023 Active Start: 05-16-2022 End: 06-21-2022 take 81 mg by mouth once daily Aspirin Discontinued 81 MG PO Daily May 16, 2022 1:00am June 21, 2022 11:01am benzonatate 100 mg oral capsule (4 sources) Non-narcotic Antitussive Start: 03-08-2024 End: 03-18-2024 take 1 capsule by mouth three times daily as needed for cough benzonatate (Tessalon) 100 MG capsule Take 100 mg by mouth 3 (three) times a day as needed for cough Do not crush or chew. 03/08/2024 03/18/2024 Discontinued (Therapy completed) cefuroxime 500 mg oral tablet (2 sources) Cephalosporin Antibacterial Start: 02-17-2024 End: 02-25-2024 take 1 tablet by mouth in the morning cefuroxime (Ceftin) 500 MG tablet Indications: Pneumonia of left lower lobe due to infectious organism Take 1 tablet (500 mg) by mouth in the morning and 1 tablet (500 mg) before bedtime. Do all this for 7 days. 14 tablet 02/17/2024 02/25/2024 Discontinued (Therapy completed) doxycycline hyclate 100 mg oral capsule (4 sources) Tetracycline-class Drug Start: 03-08-2024 End: 03-19-2024 doxycycline (Vibramycin) 100 MG capsule Indications: Pneumonia Take 100 mg by mouth in the morning and 100 mg before bedtime. Take with at least 8 ounces (large glass) of water, do not lie down for 30 minutes after. 03/08/2024 03/19/2024 Start: 03-08-2024 take 100 mg by mouth twice daily Doxycycline Hyclate Active 100 MG PO Twice daily 14 03March 08, 2024 12:00am folic acid 1 mg oral tablet (20 [...] 2024 2:11pm spironolactone 25 mg oral tablet (12 sources) Aldosterone Antagonist Start: 10-03-19 End: 01-23-20 24 take 25 mg by mouth once daily Spironolactone Discontinued 25 MG PO Daily October 22, 2023 12:00am January 23, 2024 2:59pm vitamin b12 1 mg oral capsule (20 sources) Vitamin B12 Start: 05-22-20 End: 10-22-19 24 take 1000 ug by mouth once daily at bedtime Cyanocobalamin (Vitamin B-12) Discontinued 1000 MCG PO Daily at bedtime June 21, 2022 11:02am October 22, 2023 11:04am Cyanocobalamin 1 000 MCG as directed Orally Active take 1 tablet by mouth once kellen y B-12 1000 MCG Oral Tablet TAKE 1 TABLET DAILY DIRECTED. Quantity: 0 Refills: 0 Ordered: 03-Jun-2022 DO Active Problems Active Problems Problem Classification Problem Date Documented Da te Episodic/Chronic Acute myocardial infarction (12 sources) Acute myocardial infarction of anterior wall; Translations: [ST elevation (STEMI) myocardial infarction involving other coronary artery of anterior wall] Onset: 01-16-2024 01-16-2024 Chronic Administrative/social admission (9 sources) Other reduced mobility; Translations: [Impaired mobility [...] unspecified] Onset: 09-18-2022 Chronic Cancer of bladder (13 sources) History of malignant neoplasm of bladder; Translations: [Personal history of malignant neoplasm of bladder] Onset: 12-10-2022 Resolved: 12-19-2022 Episodic Cancer; other and unspecified primary (18 sources) H/O: malignant neoplasm 12-10-2022 Episodic Cardiac dysrhythmias (20 sources) Atrial fibrillation; Translations: [Unspecified atrial fibrillation] Onset: 11-11-2022 01-18-2024 Chronic Chronic kidney disease (20 sources) Chronic kidney disease stage 3B ; Translations: [Chronic kidney disease, stage 3b] Onset: 09-04-2022 09-18-2023 Chronic Chronic kidney disease (6 sources) Chronic kidney disease; Translations: [CHRONIC KIDNEY DISEASE STAGE 3B] Onset: 09-10-2022 Chronic obstructive pulmonary disease and bronchiectasis (20 sources) Pulmonary emphysema; Translations: [Simple chronic bronchitis] Onset: 09-23-2022 09-11-2022 Chronic Complication of device; implant or graft (1 source) Other mechanical complication of indwelling urethral catheter, initial encounter; Translations: [OTH MECH CMP INDWELL URETH CATH INT] Onset: 09-16-2022 Episodic Congestive heart failure; nonhypertensive (20 sources) Chronic systolic heart failure; Translations: [Chronic systolic (congestive) heart failure] Onset: 01-16-2024 01-19-2024 Chronic Coronary atherosclerosis and other heart disease (20 sources) Ischemic myocardial dysfunction; Translations: [Ischemic cardiomyopathy] Onset: 01-16-2024 01-19-2024 Chronic Coronary atherosclerosis and other heart disease (20 sources) Stented coronary artery; Translations: [Presence of coronary angioplasty implant and graft] Onset: 01-16-2024 01-19-2024 Episodic Deficiency and other anemia (7 sources) Anemia; Translations: [Anemia, unspecified] 10-22-2023 Episodic Deficiency and other anemia (6 sources) Anemia, unspecified; Translations: [Anemia, unspecified] 10-22-2023 [...] Chronic Hypertension with complications and secondary hypertension (20 sources) Hypertensive chronic kidney disease with stage 1 through stage 4 chronic kidney disease, or unspecified chronic kidney disease; Translations: [Hypertensive renal disease] Onset: 02-22-2016 Resolved: 05-12-2023 10-04-2023 Chronic Late effects of cerebrovascular disease (1 source) Other sequelae following unspecified cerebrovascular disease; Translations: [OTH SEQUELAE UNS CEREBROVASCULAR DZ] Onset: 09-23-2022 Chronic Nutritional deficiencies (20 sources) Cobalamin deficiency; Translations: [Deficiency of other specified B group vitamins] Onset: 10-06-2023 05-22-2022 Episodic Occlusion or stenosis of precerebral arteries (8 sources) Atherosclerosis of right carotid artery; Translations: [Occlusion and stenosis of right carotid artery] Onset: 11-11-2022 11-11-2022 Chronic Other aftercare (3 sources) Other intermediate (current) drug therapy; Translations: [OTH 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 CURRENT DRUG THERAPY] Onset: 09-23-2022 Episodic Other aftercare (1 source) nursing home (current) use of anticoagulants; Translations: [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 CURRNT USE ANTICOAGULANTS] Onset: 09-08-2022 Episodic Other aftercare (1 source) Taking high risk medication; Translations: [Other intermediate (current) drug therapy] Onset: 02-10-2024 02-10-2024 Episodic Other and ill-defined cerebrovascular disease (20 sources) Cerebral ischemia Onset: 05-16-2022 06-10-2022 Chronic [...] DEFICIT] Onset: 09-08-2022 Episodic Other circulatory disease (4 sources) Low blood pressure; Translations: [Hypotension, unspecified] 01-19-2024 Episodic Other circulatory disease (5 sources) Hypotension, unspecified; Translations: [Hypotension, unspecified] Onset: 01-16-2024 01-23-2024 Episodic Other circulatory disease (3 sources) Other specified symptoms and signs involving the circulatory and respiratory systems; Translations: [Other symptoms involving respiratory system and chest] Onset: 03-08-2024 03-08-2024 Episodic Other diseases of bladder and urethra [...] diseases of bladder and urethra (20 sources) Lesion of bladder 07-31-2022 Chronic Other [...] Episodic Other diseases of kidney and ureters (20 sources) Hydronephrosis 06-10-2022 Episodic Other diseases of kidney and ureters (20 sources) Kidney lesion 06-11-2022 Episodic Other diseases of kidney and ureters (7 sources) Unspecified hydronephrosis; Translations: [Hydronephrosis] Onset: 09-10-2022 05-22-2022 Episodic Other diseases of kidney and ureters (1 source) Urinary tract obstruction; Translations: [Other obstructive and reflux uropathy] Onset: 06-10-2023 Episodic Other diseases of kidney and ureters (7 sources) Obstructive nephropathy; Translations: [Other obstructive and reflux uropathy] 10-04-2023 Episodic Other diseases of kidney and ureters (6 sources) Other obstructive and reflux uropathy; Translations: [Other specified disorders of kidney and ureter] 10-22-2023 Episodic Other diseases of veins and lymphatics (1 source) Venous insufficiency (chronic) (peripheral); Translations: [VENOUS INSUFF CHRONIC PERIPHERAL] Onset: 09-23-2022 Episodic Other ear and sense organ disorders (8 sources) Hearing difficulty; Translations: [Unspecified hearing loss, bilateral] Onset: 11-11-2022 11-11-2022 Chronic Other ear and sense organ disorders (8 sources) Hearing loss; Translations: [Unspecified hearing loss, unspecified ear] Onset: 11-22-2019 12-19-2022 Chronic Other gastrointestinal disorders (14 sources) Diarrhea; Translations: [Diarrhea, unspecified] 05-16-2022 Episodic Other gastrointestinal disorders (4 sources) Colonic lesion; Translations: [Disease of intestine, unspecified] 01-14-2024 Episodic Other injuries and conditions due to external causes (9 sources) Foreign body in bladder; Translations: [Foreign body in bladder, initial encounter] Onset: 10-03-2023 Episodic Other nervous system disorders (20 sources) 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; Translations: [Circadian rhythm sleep disorder, unspecified type] Onset: 11-11-2022 05-20-2022 Chronic Other nervous system disorders (14 sources) Metabolic encephalopathy; Translations: [Metabolic encephalopathy] 05-16-2022 Chronic Other nervous system disorders (4 sources) Metabolic encephalopathy; Translations: [Metabolic encephalopathy] 05-22-2022 Chronic Other nervous system disorders (9 sources) Circadian rhythm sleep disorder, unspecified type; Translations: [Disruption of 24 hour sleep wake cycle, unspecified] Onset: 01-16-2024 05-22-2022 Chronic Other nervous system disorders (4 sources) Abnormal circadian rhythm; Translations: [Circadian rhythm sleep disorder, unspecified type] 01-23-2024 Chronic Other nervous system disorders (1 source) Unspecified disturbances of skin sensation; Translations: [UNS DISTURBANCES OF SKIN SENSATION] Onset: 09-23-2022 Episodic Other nutritional; endocrine; and metabolic disorders (1 source) Other obesity due to excess calories; Translations: [OTHER OBESITY D/T EXCESS CALORIES] Onset: 09-23-2022 Chronic Other nutritional; endocrine; and metabolic disorders (4 sources) Overweight in adulthood with body mass index of 25 or more but less than 30; Translations: [Overweight] Onset: 02-10-2024 02-10-2024 Episodic Other nutritional; endocrine; and metabolic disorders (3 sources) Body mass index (BMI) 26.0-26.9, adult; Translations: [BODY MASS INDEX BMI 26.0-26.9 ADULT] Onset: 09-23-2022 Episodic Other screening for suspected conditions (not mental disorders or infectious disease) (4 sources) Other specified abnormal findings of blood chemistry; Translations: [Encounter for screening for malignant neoplasm of colon] Onset: 05-16-2022 Episodic Pneumonia (except that caused by tuberculosis or sexually transmitted disease) (5 sources) Left lower zone pneumonia; Translations: [Pneumonia, unspecified organism] 02-17-2024 Episodic Residual codes; unclassified (20 sources) Tobacco user; Translations: [Tobacco use] 05-22-2022 Episodic Residual codes; unclassified (4 sources) Tobacco use; Translations: [Tobacco use disorder] 05-22-2022 Episodic Residual codes; unclassified (8 sources) Other specified postprocedural states; Translations: [Other postprocedural status] Onset: 09-16-2022 Episodic Residual codes; unclassified (7 sources) History of cardiovascular surgery; Translations: [Other specified postprocedural states] 09-18-2023 Episodic Residual codes; unclassified (4 sources) Delirium; Translations: [Disorientation, unspecified] 01-23-2024 Episodic Residual codes; unclassified (5 sources) Disorientation, unspecified; Translations: [Other alteration of consciousness] Onset: 01-16-2024 01-23-2024 Episodic Residual codes; unclassified (1 source) Other specified health status; Translations: [Other specified health status] Onset: 01-16-2024 Episodic Screening and history of mental health and substance abuse codes (14 sources) Ex-smoker; Translations: [Personal history of tobacco use] Onset: 09-23-2022 02-10-2024 Episodic Comment on above: 05/17/23 quit; Substance-related disorders (10 sources) Nicotine dependence, cigarettes, uncomplicated; Translations: [Smoker] Onset: 02-23-2015 12-19-2022 Chronic Comment on above: 1/2 dozen cigarettes ; Transient cerebral ischemia (20 sources) Transient cerebral ischemia; Translations: [Unspecified transient cerebral ischemia] Onset: 05-16-2022 05-16-2022 Chronic Unclassified (1 source) ABDOMINAL AA W/O RUPTURE UNSPCIFIED; Translations: [ABDOMINAL AA W/O RUPTURE UNSPCIFIED] Onset: 09-23-2022 Unclassified (1 source) CONTACT W/AND (SUSP) EXPOS COVID-19; Translations: [CONTACT W/AND (SUSP) EXPOS COVID-19] Onset: 05-22-2022 Unclassified (1 source) Abdominal aortic aneurysm, without rupture, unspecified; Translations: [Abdominal aortic aneurysm, without rupture, unspecified] Onset: 08-18-2023 Urinary tract infections (19 sources) Urinary tract infectious disease; Translations: [Urinary tract infection, site not specified] Onset: 09-16-2022 05-16-2022 Episodic Viral infection (4 sources) COVID-19; Translations: [COVID-19] Onset: 01-04-2022 Past or Other Problems Problem Classification Problem Date Documented Da te Episodic/Chronic Acute and unspecified renal failure (20 sources) Acute renal failure syndrome; Translations: [Acute kidney failure, unspecified] Onset: 05-16-2022 Resolved: 12-19-2022 Episodic Fluid and electrolyte disorders (20 sources) Hyperkalemia; Translations: [Metabolic acidosis] Onset: 05-16-2022 06-10-2022 Episodic Malaise and fatigue (4 sources) Other fatigue; Translations: [OTHER FATIGUE] Onset: 05-15-2022 Episodic Mood disorders (8 sources) Mood disorders Onset: 05-12-2023 05-12-2023 Nausea and vomiting (1 source) Vomiting, unspecified; Translations: [VOMITING UNSPECIFIED] Onset: 05-23-2022 Episodic Neoplasms of unspecified nature or uncertain behavior (13 sources) Neoplasm of unspecified behavior of bladder; Translations: [Neoplasm of bladder] Onset: 09-08-2022 Episodic Other aftercare (1 source) nursing home (current) use of aspirin; Translations: [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] Onset: 05-22-2022 Episodic Other aftercare (8 sources) Polypharmacy ; Translations: [Other trim mechanic (current) drug therapy] Onset: 12-08-2020 12-19-2022 Episodic Other circulatory disease (8 sources) H/O: cardiovascular disease; Translations: [Personal history of other diseases of the circulatory system] Onset: 02-22-2016 Resolved: 12-19-2022 12-19-2022 Episodic Other diseases of kidney and ureters (20 sources) Bilateral hydronephrosis ; Translations: [Unspecified hydronephrosis] Onset: 10-06-2023 05-22-2022 Episodic Other diseases of veins and lymphatics (8 sources) Venous insufficiency of leg; Translations: [Venous insufficiency (chronic) (peripheral)] Onset: 11-11-2022 11-11-2022 Episodic Other gastrointestinal disorders (5 sources) Diarrhea, unspecified; Translations: [Diarrhea] Onset: 05-23-2022 05-22-2022 Episodic Other nervous system disorders (8 sources) White matter disease; Translations: [White matter disease, unspecified] Onset: 11-11-2022 11-11-2022 Episodic Other nutritional; endocrine; and metabolic disorders (1 source) Anorexia; Translations: [ANOREXIA] Onset: 05-23-2022 Episodic Other nutritional; endocrine; and metabolic disorders (1 source) Abnormal weight loss; Translations: [ABNORMAL WEIGHT LOSS] Onset: 05-23-2022 Episodic Other nutritional; endocrine; and metabolic disorders (8 sources) Overweight; Translations: [Overweight] Onset: 11-11-2022 11-11-2022 Episodic Residual codes; unclassified (1 source) Chills (without fever); Translations: [CHILLS WITHOUT FEVER] Onset: 05-23-2022 Episodic Unclassified (3 sources) Abdominal aortic aneurysm (AAA) without rupture, unspecified part I71.40 Unclassified (3 sources) Infrarenal abdominal aortic aneurysm (AAA) without rupture I71.43 Unclassified (9 sources) Onset: 12-31-2023 Resolved: 02-10-2024 02-10-2024 Results Test Name Value Interpretation Reference Range Facility [facility] Fish and Urine Cyt o ([facility])on 04-12-2024 UV[facility] & UC Diagnosis Info Invalid Interpretation Code [facility] Comment on above: Result Comment: A:Ur ine,Bladder Wash:Bladder Wash Diagnosis Summary - Paucicellular specimen, non-diagnostic. Diagnosis Summary - The [facility] FISH study detected normal copy numbers for chromosomes 3, 7, 17, and 9p21. 25 cells were analyzed in this evaluation. No evidence of aneuploidy for chromosomes 3, 7, or 17 or deletion of the 9p21 locus was found in cells present in this specimen. This test does not rule out the possibility of a low grade non-invasive papillary urothelial carcinoma. These findings should be correlated with cytology and cystoscopy results. * CPT: 39749, 95965. Microscopic Notes - Microscopic Notes - Abnormal cells 9p21 deletions: Abnormal cells aneploid events: Total cells analyzed: 25 Hematuria: Gross Description Site ID:A color Colorless fixative Alcohol Received 90 mls of slightly cloudy colorless fluid with the patient's name and, Bladder Wash on the vial. Electronically signed by : on: 04/12/2024 16:53:27 Performed By: #### 1 [id number] #### [facility] [address] [place] [address] Ambulatory Visit Summaryon 06-06-2023 Ambulatory Visit Summary Ambulatory Visit Summary ANDERSON, ALEX :1945 Visit Date:04/06/2024 Ambulatory Visit Instructions Your Diagnosis History of bladder cancer Urinary retention BPH with urinary obstruction Your Care Team Attending Physician - ARLENE CASILLAS, Katia Hall Primary Care Physician - IDANIA CASILLAS, STANLEY Rich This Is Your Medications List Contact prescribing physician if questions or concerns albuterol (Albuterol (Eqv-ProAir HFA) 90 mcg/inh inhalation aerosol) amiodarone (amiodarone 200 mg Tab) amlodipine apixaban (Eliquis 2.5 mg oral tablet) atorvastatin (atorvastatin 80 mg Tab) bacillus coagulans-inulin (Vitafusion Fiber Well + Probiotics Gummies oral tablet, chewable) ciprofloxacin (Cipro 500 mg Tab) clopidogrel ferrous sulfate (ferrous sulfate (as elemental iron) 45 mg oral tablet, extended release) furosemide (furosemide 40 mg Tab) multivitamin nitroglycerin (nitroglycerin 0.4 mg sublingual Tab) potassium chloride (Klor-Con) sterile water (sterile water irrigation solution) ticagrelor (Brilinta (ticagrelor) 90 mg oral tablet) warfarin (warfarin 2 mg Tab) Procedures Performed Flexible cystoscopy (04/06/2024), Flexible cystoscopy (10/03/2023), Cystoscope (03/11/2023), TURBT - Transurethral resection of bladder tumor (09/12/2022), Cystoscopy (07/31/2022). Discharge Vitals Heart Rate (Peripheral) 79 Blood Pressure 107/69 Height 187 cm Height 74 in Weight 93 kg Weight 205.03 lb BMI 26.59 What to do next You Need to Schedule the Following Appointments Follow Up with ARLENE CASILLAS, Katia Hall, URL When: Where: [facility] [address] , [place] [address]- Medications What How Much When Instructions Unchanged albuterol (Albuterol (Eqv-ProAir HFA) 90 mcg/ inh inhalation aerosol) Contact prescribing physician if questions or concerns Unchanged amiodarone (amiodarone 200 mg Tab) 1 Tablets Contact prescribing physician if questions or concerns Unchanged amlodipine 5 Milligram By Mouth 2 times a day Contact prescribing physician if questions or concerns Unchanged apixaban (Eliquis 2.5 mg oral tablet) Contact prescribing physician if questions or concerns Unchanged atorvastatin (atorvastatin 80 mg Tab) 1 Tablets By Mouth Every day Contact prescribing physician if questions or concerns Unchanged bacillus coagulans-inulin (Vitafusion Fiber Well + Probiotics Gummies oral tablet, chewable) By Mouth Every day Contact prescribing physician if questions or concerns Unchanged ciprofloxacin (Cipro 500 mg Tab) 1 Tablets By Mouth Every day Contact prescribing physician if questions or concerns Unchanged clopidogrel 75 Milligram Contact prescribing physician if questions or concerns Unchanged ferrous sulfate (ferrous sulfate (as elemental iron) 45 mg oral tablet, extended release) 1 Tablets By Mouth Every day Contact prescribing physician if questions or concerns Unchanged furosemide (furosemide 40 mg Tab) TAKE 1 TABLET BY MOUTH EVERY DAY Contact prescribing physician if questions or concerns Unchanged multivitamin Every day Contact prescribing physician if questions or concerns Unchanged nitroglycerin (nitroglycerin 0.4 mg sublingual Tab) 1 Tablets Sublingual Every 5 minutes as needed for for chest pain Contact prescribing physician if questions or concerns Unchanged potassium chloride (Klor-Con) 20 Milliequivalent Contact prescribing physician if questions or concerns Unchanged sterile water (sterile water irrigation solution) Contact prescribing physician if questions or concerns Unchanged ticagrelor (Brilinta (ticagrelor) 90 mg oral tablet) 1 Tablets By Mouth 2 times a day Contact prescribing physician if questions or concerns Unchanged warfarin (warfarin 2 mg Tab) 1 Tablets Contact prescribing physician if questions or concerns Medications and Immunizations Administered Given lidocaine Top 2% Gel w/Appl 11 mL, 11 mL, Topical. For: History of bladder cancer, Urinary retention, BPH with urinary obstruction Allergies No Known Allergies No Known Medication Allergies Problems Ongoing [...] choosing us for your care. Education Materials Indwelling Urinary Catheter Insertion, Care After This sheet gives you information about how to care for yourself after your procedure. Your health care provider may (more content not included)... Normal [facility] Reminderson 04-06-2024 Reminders Reminders From: Dana Rivas To: EU - Recalls Arlene; Sent: 02/20/2024 14:44:26 EDT Show up: 07/24/2024 14:44:00 EST Subject: Cysto/FISH/cytol, cath chng Due Date/Time: 08/16/2024 14:44:00 EDT Reminder/Recall Patient is due in September 2024 for 6 month cysto/fish/cytol, cath change (bt ck) Patient sched 10/05/24 Normal [facility] Fish and Urine Cyt o ([facility])on 04-06-2024 [facility] Method of Extraction Bladder Wash Normal [facility] Comment on above: Performed By: #### 1 [id number] #### [facility] [address] [place] [id number] [facility] Number of Jars 1 Invalid Interpretation Code [facility] Comment on above: Performed By: #### 1 [id number] #### [facility] [address] [place] [address] [facility] Specimen Bladder Wash Normal [facility] Comment on above: Performed By: #### 1 [id number] #### [facility] [address] [place] [address] [facility] Type of Service Technical Only Normal [facility] Comment on above: Performed By: #### 1 [id number] #### [facility] [address] [place] [address] Urology Office/Clinic Noteon 04-06-2024 Urology Office/Clinic Note Urology Office/Clinic Note Chief Complaint cysto HPI Staff Cysto ABX TAKE, villarreal change/bladder wash History of Present Illness Tests reviewed: I have reviewed the previous health record information and history for this patient from Dr. Jacobs. I have reviewed and verified the staff HPI to be accurate for this encounter. Review of Systems PHQ Score Initial Depression Screen Score: 1 SCORE ROS - Provider Constitutional: denies weight [...] HPI. Physical Exam Vitals & Measurements HR: 79(Peripheral) BP: 107/69 HT: 74 in HT: 187 cm WT: 93 kg WT: 205.03 lb BMI: 26.59 General Appearance: alert, no distress, well nourished, well developed male. Genitourinary: normal scrotum, normal testes, normal urethra, normal epididymis, normal vas deferens/spermatic cord. Flank Pain: none. Bladder: nonpalpable. Procedure Operative Information Anesthesia Type: Local Procedure: Local Cystoscopy and catheter change. Complications: None Surgical risks, benefits, details of the procedure have been explained to the patient. Full informed consent has been obtained. Intraoperative Information Prepped: Patient is brought back to the endoscopy suite. Patient is placed in supine position. Villarreal catheter removed. Patient prepped in the usual fashion with Betadine solution. 2% Xylocaine Jelly is placed per Urethra. After waiting several minutes, the Cystoscope is introduced. The Urethra is: Normal The Prostatic Urethra is: Obstructed, long lateral lobes. The Bladder: _No tumors or stones, Trabeculated: Severe (3), open tics diffusely. The Ureteral orifices: Show efflux of clear urine Specimens Removed: Bladder wash sent for FISH and Cytology test Removal: Cystoscope is removed. The patient tolerated it well. 18 Fr coude. The patient denies major complications since the last catheter change. There has been no blood in the urine and no evidence of fever, chills, or flank pain. The villarreal was changed in the office today with no difficulties, and flushed appropriately to ensure proper placement. Postoperative Information Patient is discharged home with antibiotic coverage. Follow up arranged. Assessment/Plan 1. History of bladder cancer (Z85.51: Personal history of malignant neoplasm of bladder) Original TURBT/extraction of 2 bladder calculi 09/12/22 - Noninvasive papillary urothelial carcinoma, low grade. Invasion is not recognized. A small fragment of detrusor muscle is present in the specimen. Last cysto 10/03/23. Pt had 6 mo IO cysto to check for bladder tumor recurrence without complications today. Pt took prophylactic abx prior to procedure. Will send bladder wash specimen for FISH/cytol and call pt if positive. Follow up 6 mos surveillance cysto/bt ck/FISH/cytol or sooner if needed. Pt understands and agrees with plan. 2. Urinary retention (R33.9: Retention of urine, unspecified) S/p Rezum 06/10/23. Catheter removal IO 06/16/23, [...] was going to start monthly villarreal changes. [1] [facility] ER on 09/15/22 due to catheter clogged. Pt was diagnosed w/ UTI and treated w/ Cipro 500 mg BID for x 7 days. Attempted urocuff, pt was unable to void, PVR 348 cc, cath placed 10/04/22. [2] Pt has been in the ER multiple times due to issues with Villarreal. Most recently, pt presented to [facility] ER 09/29/23 and 09/30/23 due to catheter not draining. [3] Cath changed IO today, see procedure section. 3. BPH with urinary obstruction (N40.1: Benign prostatic hyperplasia with lower urinary tract symptoms) S/p Rezum 06/10/23. Not taking any BPH meds. Maintained with chronic villarreal, see #2. Follow-up With When Contact Information ARLENE CASILLAS, Katia Hall, URL [facility] [address], [place] [address]- Additional Instructions: 6 mos surveillance cysto/bt ck/FISH/cytol Patient Education Indwelling Urinary Catheter Insertion, Care After Cancer Screening for Males ICitlalli, personally scribed for Dr. Jacobs on 04/06/2024 11:35:18. . Documentation recorded by the scribe, Citlalli Rushing, accurately reflects the services(s) I performed and decisions made by me. Authenticated by Dr. Jacobs on 04/06/2024 11:36:29. Problem List/Past Medical History (more content not included)... Normal [facility] Comment on above: Result Comment: Elec tronically Signed By: Katia JACOBS MD\.br\Date and Time Signed: 04/06/24 11:36 EST\.br\Electronically Co-Signed By: Citlalli Rushing\.br\Date and Time Co-Signed: 04/06/24 11:35 EST ALL HEMOGLOBINon 03-23-2024 Hemoglobin (Bld) [Mass/Vol] 9.5 g/dL Low 14.0 - 18.0 g/dL [facility] Interpretation and review of laboratory results Abnormal [facility] No Panel InformationOrdered By: Rosalie Bailey on 03-08-2024 Quick Strep (POC) [facility] XR chest 2V*on 03-08-2024 XR chest 2V* [facility] [place] [address] XRay Report Signed Patient: Alex Anderson MR#: [id number] [birth year] : 1945 Acct:[id number] Age/Sex: 78 / M ADM Date: 03/08/24 Loc: XDUCLY Room: Type: [facility] Attending Dr: Rosalie Bailey APRN Copies to: Rosalie Bailey APRN Ordering Provider: Rosalie Bailey APRN Date of Service: 03/08/24 XR/XR chest 2V*: COUGH XR chest 2V* 03/08/2024 1:51 PM SIGNS AND SYMPTOMS: Cough, congestion PROTOCOL: Frontal and lateral graphs of the chest COMPARISON: 01/17/2024 FINDINGS: The trachea is midline. The heart and mediastinal structures are within normal limits. Interstitial prominence is noted with airspace opacities in the right mid to lower chest suggesting pneumonia. The bony thorax is intact. XR/XR chest 2V* IMPRESSION: Interstitial prominence is noted with airspace opacities in the right mid to lower chest suggesting pneumonia. Impression dictated by: Corky Max M.D.03/08/2024 2:03 PM Dictation Location: [id number]-07 Transcribed By: LIONEL 03/08/241402 Dictated By: Corky Max II, MD 03/08/241401 Signed By: 03/08/24 1403 Normal [facility] ALL HEMOGLOBINon 03-04-2024 Hemoglobin (Bld) [Mass/Vol] 10.0 g/dL Low 14.0 - 18.0 g/dL [facility] Interpretation and review of laboratory results Abnormal [facility] Reminderson 02-19-2024 Reminders Reminders From: Dana Rivas To: EU - Recalls Jacobs; Sent: 12/02/2023 11:09:10 EDT Show up: 01/25/2024 11:09:00 EDT Subject: cysto/fish/cytol/cath change Due Date/Time: 02/16/2024 11:09:00 EDT Reminder/Recall Patient is due in Mar 2024 for 6 month cysto/fish/cytol, cath change (bt ck) Spoke to pts , pt had a heart attack 1 month ago and is on blood thinners. He was told to not do any surgery due to stent placement. Pts was notified ok to keep cysto on 04/06/24.LG Normal [facility] Bacteria [Presence] in Urine by AutomatedOrdered By: Rob Almazan on 01-23-2024 Bacteria Auto Ql (U) Rare [HPF] None Seen [facility] Bilirubin Test strip Ql (U)O rdered By: Rob Almazan on 01-23-2024 Bilirubin Ql (U) Negative Negative [facility] Color of Urine by AutoOrdere d By: Rob Almazan on 01-23-2024 Color (U) Yellow Normal Yellow [facility] Comment on above: Order Comment: Name Collection Type:: Villarreal Catheter Performed By: #### A JHONNY GIFFORD #### [address] Dipstick and Microscopicon 0 01-23-2024 Bacteria,Urine Rare Normal None Seen [facility] Comment on above: Order Comment: Name Collection Type:: Villarreal Catheter Performed By: #### A DDONUAPLUS, CUU #### [place] [address] [place] Bilirubin,Urine Negative Normal Negative [facility] Comment on above: Order Comment: Name Collection Type:: Villarreal Catheter Performed By: #### A DDONUAPLUS, CUU #### [address] Glucose Ql (U) Normal Normal Normal [facility] Comment on above: Order Comment: Name Collection Type:: Villarreal Catheter Performed By: #### A DDONUAPLUS, CUU #### [place] [address] [place] Hyaline Casts,Urine None Normal 0-8 [facility] Comment on above: Order Comment: Name Collection Type:: Villarreal Catheter Performed By: #### A DDONUAPLUS, CUU #### [place] [address] [place] Mucus,Urine Rare Normal [facility] Comment on above: Order Comment: Name Collection Type:: Villarreal Catheter Result Comment: PERF ORMED BY: [place] [address] PATHOLOGIST PROCESS SAFETY MANAGER OREN OWEN M.D. Performed By: #### A DDONUAPLUS, CUU #### [place] [address] [place] Nitrite,Urine Negative Normal Negative [facility] Comment on above: Order Comment: Name Collection Type:: Villarreal Catheter Performed By: #### A DDONUAPLUS, CUU #### [place] [address] [place] Occult Blood,Urine 2+ High Negative [facility] Comment on above: Order Comment: Name Collection Type:: Villarreal Catheter Result Comment: PERF ORMED BY: [place] [address] PATHOLOGIST PROCESS SAFETY MANAGER ORNE OWEN M.D. Performed By: #### A DDONUAPLUS, CUU #### [place] [address] [place] Protein,Urine Trace High Negative [facility] Comment on above: Order Comment: Name Collection Type:: Villarreal Catheter Performed By: #### A DDONUAPLUS, CUU #### [place] [address] [place] RBC,Urine 20-49 High 0-4 [facility] Comment on above: Order Comment: Name Collection Type:: Villarreal Catheter Performed By: #### A DDONUAPLUS, CUU #### [address] Specificy [place],Urine 1.022 Normal 1.00 1-1.03 0 [facility] Comment on above: Order Comment: Name Collection Type:: Villarreal Catheter Performed By: #### A DDONUAPLUS, CUU #### [address] Urobilinogen,Urine 2 mg/dL High Normal [facility] Comment on above: Order Comment: Name Collection Type:: Villarreal Catheter Performed By: #### A DDONUAPLUS, CUU #### [address] WBC CLUMP, Urine Rare High None Seen [facility] Comment on above: Order Comment: Name Collection Type:: Villarreal Catheter Performed By: #### A DDONUAPLUS, CUU #### [place] [address] [place] WBC,Urine 20-49 High 0-4 [facility] Comment on above: Order Comment: Name Collection Type:: Villarreal Catheter Performed By: #### A DDONUAPLUS, CUU #### [place] [address] [place] ECG 12 lead ECGon 01-23-2024 ECG 12 lead ECG [facility] [place] [address] Electrocardiograph Report Signed Patient: Alex Anderson MR#: [id number] 38 : 1945 Acct:[id number] Age/Sex: 78 / M ADM Date: 01/16/24 Loc: Room: [address] [place] [address] Type: ADM IN Attending Dr: Nas Pruett [...] Acute Anteroseptal infarct Lateral injury pattern ACUTE MO / STEMI Abnormal ECG When compared with ECG of 19-Jan-2024 07:09, Serial changes of Anteroseptal infarct present Confirmed by Misael Campbell ([id number]) on 01/23/2024 11:36:17 AM Referred By: Electronically Signed By: Misael Campbell Transcribed By: MUS Signed By Misael Campbell MD 01/23/24 1136 Normal [facility] Epithelial cells.squamous [# /area] in Urine sediment by Automated countOrdered By: Rob Almazan on 01-23-2024 Epithelial cells.squamous Auto (Urine sed) [#/Area] N/A [facility] Erythrocytes [#/area] in Uri ne sediment by Automated countOrdered By: Rob Almazan on 01-23-2024 RBC Auto (Urine sed) [#/Area] 20-49 [HPF] High 0-[address] [facility] Glucose [Mass/volume] in Uri ne by Test stripOrdered By: Rob Almazan on 01-23-2024 Glucose Test strip (U) [Mass/Vol] Normal mg/dL Normal [facility] Hemoglobin Test strip Ql (U) Ordered By: Rob Almazan on 01-23-2024 Hemoglobin Ql (U) 2+ High Negative [facility] Hyaline casts [#/area] in Ur ine sediment by Automated countOrdered By: Rob Almazan on 01-23-2024 Hyaline casts Auto (Urine sed) [#/Area] None [LPF] 0-[address] [facility] Ketones [Presence] in Urine by Test stripOrdered By: Rob Villaltaor on 01-23-2024 Ketones Ql (U) Negative Normal Negative [facility] Comment on above: Order Comment: Name Collection Type:: Villarreal Catheter Performed By: #### A DDONUAPLUS, CUU #### [facility] [address] [place] [address] [place] Leukocyte clumps [Presence] in Urine by AutomatedOrdered By: Rob Almazan on 01-23-2024 Leukocyte clumps Auto Ql (U) Rare [LPF] High None Seen [facility] Leukocyte esterase [Presence ] in Urine by Test stripOrdered By: Rob Almazan on 01-23-2024 Leukocyte esterase Test strip Ql (U) 4+ High Negative [facility] Comment on above: Order Comment: Name Collection Type:: Villarreal Catheter Performed By: #### A DDONUAPLUS, CUU #### [facility] [address] [place] [address] [place] Leukocytes [#/area] in Urine sediment by Automated countOrdered By: Rob Almazan on 01-23-2024 WBC Auto (Urine sed) [#/Area] 20-49 [HPF] High 0-[address] [facility] Mucus [Presence] in Urine by AutomatedOrdered By: Rob Almazan on 01-23-2024 Mucus Auto Ql (U) Rare [LPF] [facility] Nitrite Test strip Ql (U)Ord ered By: Rob Almazan on 01-23-2024 Nitrite Ql (U) Negative Negative [facility] Protein Test strip (U) [Mass /Vol]Ordered By: Rob Almazan on 01-23-2024 Protein (U) [Mass/Vol] Trace mg/dL High Negative [facility] Specific gravity Test strip (U) [Rel density]Ordered By: Rob Almazan on 01-23-2024 Specific gravity (U) [Rel density] 1.022 1.001-1.[address] [facility] Urine Cultureon 01-23-2024 Bacteria identified Cx Nom (U) ORGANISM: Enterococcus faecalis (O:ENTFAC) [place] Count 30,000 Aerobic RITESH Charge (PCMIC38) SUSCEPTIBILITY [...] RESISTANT TO ALL B-LACTAM DRUGS. PERFORMED BY: [place] [address] PATHOLOGIST PROCESS SAFETY MANAGER OREN OWEN M.D. Normal [facility] Comment on above: Performed By: #### A ИРИНА CUU #### [facility] [address] [place] [address] Urine appearanceOrdered By: Rob Almazan on 01-23-2024 Appearance (U) Clear Normal Clear [facility] Comment on above: Order Comment: Name Collection Type:: Villarreal Catheter Performed By: #### A ИРИНА CUU #### [facility] [address] [place] [address] Urine culture routineOrdered By: Rob Almazan on 01-23-2024 Bacteria identified Cx Nom (U) Enterococcus faecalis Abnormal [facility] Urobilinogen Test strip (U) [Mass/Vol]Ordered By: Rob Almazan on 01-23-2024 Urobilinogen (U) [Mass/Vol] 2 mg/dL High Normal [facility] pH of Urine by Test stripOrd ered By: Rob Almazan on 01-23-2024 pH (U) 5.5 [pH] Normal 5.0-9.[address] [facility] Comment on above: Order Comment: Name Collection Type:: Villarreal Catheter Performed By: #### A DDONUAJONATHAN, CUU #### [address] Automated basophil %Ordered By: Nas Pruett on 01-21-2024 Basophils/100 WBC (Bld) 0.5 % Normal . [facility] Comment on above: Performed By: #### B MP, CBC #### [address] Automated basophil countOrde red By: Nas Pruett on 01-21-2024 Basophils (Bld) [#/Vol] 0.0 10*3/uL Normal 0.0-0.[address] [facility] Comment on above: Result Comment: PERF ORMED BY: [place] [address] PATHOLOGIST PROCESS SAFETY MANAGER OREN OWEN M.D. Performed By: #### B MP, CBC #### [address] Automated blood monocyte cou ntOrdered By: Nas Pruett on 01-21-2024 Monocytes (Bld) [#/Vol] 1.4 10*3/uL High 0.0-0.[address] [facility] Comment on above: Performed By: #### B MP, CBC #### [address] Automated eosinophil %Ordere d By: Nas Pruett on 01-21-2024 Eosinophils/100 WBC (Bld) 3.6 % Normal . [facility] Comment on above: Performed By: #### B MP, CBC #### [address] Automated eosinophil countOr dered By: Nas Pruett on 01-21-2024 Eosinophils (Bld) [#/Vol] 0.3 10*3/uL Normal 0.0-0.[address] [facility] Comment on above: Performed By: #### B MP, CBC #### [address] Automated monocyte %Ordered By: Nas Pruett on 01-21-2024 Monocytes/100 WBC (Bld) 16.0 % Normal . [facility] Comment on above: Performed By: #### B MP, CBC #### [address] Automated neutrophil %Ordere d By: aNs Pruett on 01-21-2024 Neutrophils/100 WBC (Bld) 64.3 % Normal . [facility] Comment on above: Performed By: #### B MP, CBC #### [address] Basic Metabolic Panelon 12-25 Creatinine Clr Calc Pharmacy 46.56 Normal [facility] Comment on above: Result Comment: PERF ORMED BY: [place] [address] PATHOLOGIST PROCESS SAFETY MANAGER OREN OWEN M.D. Performed By: #### B MP, CBC #### [address] GFR/1.73 sq M.predicted MDRD (S/P/Bld) [Vol rate/Area] 43.613 mL/min/{1.73_m2} Normal [facility] Comment on above: Performed By: #### B MP, CBC #### [address] Calcium [Mass/volume] in Ser um or PlasmaOrdered By: Nas Pruett on 01-21-2024 Calcium [Mass/Vol] 8.5 mg/dL Low 8.6-10.3 [facility] Comment on above: Performed By: #### B MP, CBC #### [address] Carbon dioxide, total [Moles /volume] in Serum or PlasmaOrdered By: Nas Pruett on 01-21-2024 CO2 [Moles/Vol] 20.1 mmol/L Low 21.0-31.0 [facility] Comment on above: Performed By: #### B MP, CBC #### [address] [place] [address] [place] Chloride [Moles/volume] in S marium or PlasmaOrdered By: Nas Pruett on 01-21-2024 Chloride [Moles/Vol] 107 mmol/L Normal 98-107 [facility] Comment on above: Performed By: #### B MP, CBC #### [address] Complete Blood Count Auto Di ffon 01-21-2024 Mean Corpuscular HGB Conc 32.9 g/dL Normal 32.5-35.6 [facility] Comment on above: Performed By: #### B MP, CBC #### [address] NRBC% 0.1 /100{WBC} Normal 0-0.5 [facility] Comment on above: Performed By: #### B MP, CBC #### [address] Creatinine [Mass/volume] in Serum or PlasmaOrdered By: Nas Pruett on 01-21-2024 Creatinine [Mass/Vol] 1.59 mg/dL High 0.70-1.30 [facility] Comment on above: Performed By: #### B MP, CBC #### [address] Erythrocyte distribution wid th [Ratio] by Automated countOrdered By: Nas Pruett on 01-21-2024 Erythrocyte distribution width (RBC) [Ratio] 15.6 % High 12.0-14.[address] [facility] Comment on above: Performed By: #### B MP, CBC #### [place] [address] [place] Erythrocytes [#/volume] in B lood by Automated countOrdered By: Nas Pruett on 01-21-2024 RBC (Bld) [#/Vol] 4.33 10*6/uL Normal 3.90-5.60 [facility] Comment on above: Performed By: #### B MP, CBC #### [address] Glucose [Mass/volume] in Ser um or PlasmaOrdered By: Nas Pruett on 01-21-2024 Glucose [Mass/Vol] 121 mg/dL High 70-100 [facility] Comment on above: ADA recommended refe rence rangeRandom Glucose Reference Range is dependent on time and content of last meal. Glucose of more than 200 mg/dL in a nonstressed, ambulatory subject supports the diagnosis of Diabetes Mellitus. Result Comment: [place] om Glucose Reference Range is dependent on time and content of last meal. Glucose of more than 200 mg/dL in a nonstressed, ambulatory subject supports the diagnosis of Diabetes Mellitus. ADA recommended reference range Performed By: #### B MP, CBC #### [address] Hematocrit [Volume Fraction] of Blood by Automated countOrdered By: Nas Pruett on 01-21-2024 Hematocrit (Bld) [Volume fraction] 37.1 % Low 38.8-50.[address] [facility] Comment on above: Performed By: #### B MP, CBC #### [address] Hemoglobin [Mass/volume] in BloodOrdered By: Nas Pruett on 01-21-2024 Hemoglobin (Bld) [Mass/Vol] 12.2 g/dL Low 13.0-17.[address] [facility] Comment on above: Performed By: #### B MP, CBC #### [address] Leukocytes [#/volume] correc phil for nucleated erythrocytes in Blood by Automated counOrdered By: Nas Pruett on 01-21-2024 WBC corrected for nucl RBC Auto (Bld) [#/Vol] 8.8 10*3/uL 4.1-10.[address] [facility] Leukocytes [#/volume] in Blo od by Automated countOrdered By: Nas Pruett on 01-21-2024 WBC (Bld) [#/Vol] 8.8 10*3/uL Normal 4.1-10.5 [facility] Comment on above: Performed By: #### B MP, CBC #### [place] [id number] [place] Lymphocytes [#/volume] in Bl ood by Automated countOrdered By: Nas Pruett on 01-21-2024 Lymphocytes (Bld) [#/Vol] 1.4 10*3/uL Normal 1.00-4.[address] [facility] Comment on above: Performed By: #### B MP, CBC #### [address] Lymphocytes/100 leukocytes i n Blood by Automated countOrdered By: Nas Pruett on 01-21-2024 Lymphocytes/100 WBC (Bld) 15.6 % Normal . [facility] Comment on above: Performed By: #### B MP, CBC #### [address] MCH [Entitic mass] by Automa phil countOrdered By: Nas Pruett on 01-21-2024 MCH (RBC) [Entitic mass] 28.1 pg Normal 27.5-35.[address] [facility] Comment on above: Performed By: #### B MP, CBC #### [address] MCHC Auto (RBC) [Mass/Vol]Or dered By: Nas Prutet on 01-21-2024 MCHC (RBC) [Mass/Vol] 32.9 g/dL 32.5-35.6 [facility] MCV [Entitic volume] by Auto mated countOrdered By: Nas Pruett on 01-21-2024 MCV (RBC) [Entitic vol] 85.6 fL Normal 83.5-101 [facility] Comment on above: Performed By: #### B MP, CBC #### [address] Neutrophils [#/volume] in Bl ood by Automated countOrdered By: Nas Pruett on 01-21-2024 Neutrophils (Bld) [#/Vol] 5.7 10*3/uL Normal 1.8-7.[address] [facility] Comment on above: Performed By: #### B MP, CBC #### [address] No Panel InformationOrdered By: Nas Pruett on 01-21-2024 Estimated GFR (CKD-EPI) 43.613 mL/Min [facility] Creatinine Clearance (Chem 46.[address] [facility] Nucleated erythrocytes [Pres ence] in Blood by Automated countOrdered By: Nas Pruett on 01-21-2024 Nucleated RBC Auto Ql (Bld) 0.1 /100{WBC} 0-0.[address] [facility] Platelet mean volume [Entiti c volume] in Blood by Automated countOrdered By: Nas Pruett on 01-21-2024 Platelet mean volume (Bld) [Entitic vol] 8.4 fL Normal 6.6-10.[address] [facility] Comment on above: Performed By: #### B MP, CBC #### [facility] [address] Platelets [#/volume] in Bloo d by Automated countOrdered By: Nas Pruett on 01-21-2024 Platelets (Bld) [#/Vol] 221 10*3/uL Normal 150-[address] [facility] Comment on above: Performed By: #### B MP, CBC #### [facility] [address] Potassium [Moles/volume] in Serum or PlasmaOrdered By: Nas Pruett on 01-21-2024 Potassium [Moles/Vol] 3.9 mmol/L Normal 3.5-5.1 [facility] Comment on above: Performed By: #### B MP, CBC #### [facility] [address] Serum or plasma anion gap de terminationOrdered By: Nas Pruett on 01-21-2024 Anion gap [Moles/Vol] 13.8 mmol/L Normal 6.0-15.0 [facility] Comment on above: Performed By: #### B MP, CBC #### [facility] [address] [place] [address] Sodium [Moles/volume] in Ser um or PlasmaOrdered By: Nas Pruett on 01-21-2024 Sodium [Moles/Vol] 137 mmol/L Normal 136-145 [facility] Comment on above: Performed By: #### B MP, CBC #### [facility] [address] [place] [address] Urea nitrogen [Mass/volume] in Serum or PlasmaOrdered By: Nas Pruett on 01-21-2024 Urea nitrogen [Mass/Vol] 35 mg/dL High 7-[address] [facility] Comment on above: Performed By: #### B MP, CBC #### [facility] [address] Basic Metabolic Panelon 12-25 Anion gap [Moles/Vol] 12.0 mmol/L Normal 6.0-15.0 [facility] Comment on above: Performed By: #### A DDMOEUAJONATHAN, CUU #### [address] Calcium [Mass/Vol] 8.4 mg/dL Low 8.6-10.3 [facility] Comment on above: Performed By: #### A DORAONUAJONATHAN, CUU #### [address] Chloride [Moles/Vol] 107 mmol/L Normal 98-107 [facility] Comment on above: Performed By: #### A DDMOEUAJONATHAN, CUU #### [address] CO2 [Moles/Vol] 19.5 mmol/L Low 21.0-31.0 [facility] Comment on above: Performed By: #### A DDONUAJONATHAN, CUU #### [address] Creatinine [Mass/Vol] 1.50 mg/dL High 0.70-1.30 [facility] Comment on above: Performed By: #### A DDAYSHA, CUU #### [address] Creatinine Clr Calc Pharmacy 49.40 Normal [facility] Comment on above: Result Comment: PERF ORMED BY: [place] [address] PATHOLOGIST PROCESS SAFETY MANAGER OREN OWEN M.D. Performed By: #### A ИРИНА, CUU #### [place] [address] [place] GFR/1.73 sq M.predicted MDRD (S/P/Bld) [Vol rate/Area] 46.772 mL/min/{1.73_m2} Normal [facility] Comment on above: Performed By: #### A ИРИНА, CUU #### [address] Glucose [Mass/Vol] 136 mg/dL High 70-100 [facility] Comment on above: Result Comment: [place] Glucose Reference Range is dependent on time and content of last meal. Glucose of more than 200 mg/dL in a nonstressed, ambulatory subject supports the diagnosis of Diabetes Mellitus. ADA recommended reference range Performed By: #### A ИРИНА CUU #### [address] Potassium [Moles/Vol] 3.5 mmol/L Normal 3.5-5.1 [facility] Comment on above: Performed By: #### A ИРИНА CUU #### [address] Sodium [Moles/Vol] 135 mmol/L Low 136-145 [facility] Comment on above: Performed By: #### A ИРИНА CUU #### [address] Urea nitrogen [Mass/Vol] 32 mg/dL High 7-25 [facility] Comment on above: Performed By: #### A ИРИНА CUU #### [address] Complete Blood Count Auto Di ffon 01-20-2024 Basophils (Bld) [#/Vol] 0.0 10*3/uL Normal 0.0-0.2 [facility] Comment on above: Result Comment: PERF ORMED BY: [place] [address] PATHOLOGIST PROCESS SAFETY MANAGER OREN OWEN M.D. Performed By: #### A ИРИНА, CUU #### [address] Basophils/100 WBC (Bld) 0.3 % Normal . T [facility]on[facility] Comment on above: Performed By: #### A ИРИНА, CUU #### [address] Eosinophils (Bld) [#/Vol] 0.2 10*3/uL Normal 0.0-0.45 [facility] Comment on above: Performed By: #### A ИРИНА, CUU #### [address] Eosinophils/100 WBC (Bld) 1.7 % Normal . [facility] Comment on above: Performed By: #### A ИРИНА, CUU #### [address] Erythrocyte distribution width (RBC) [Ratio] 15.4 % High 12.0-14.8 [facility] Comment on above: Performed By: #### A ИРИНА CUU #### [address] Hematocrit (Bld) [Volume fraction] 37.6 % Low 38.8-50.0 [facility] Comment on above: Performed By: #### A ИРИНА, CUU #### [address] Hemoglobin (Bld) [Mass/Vol] 12.5 g/dL Low 13.0-17.0 [facility] Comment on above: Performed By: #### A ИРИНА, CUU #### [address] Lymphocytes (Bld) [#/Vol] 1.1 10*3/uL Normal 1.00-4.8 [facility] Comment on above: Performed By: #### A DDONUAPLUS, CUU #### [address] Lymphocytes/100 WBC (Bld) 11.8 % Normal . [facility] Comment on above: Performed By: #### A DDONUAPLUS, CUU #### [address] MCH (RBC) [Entitic mass] 28.5 pg Normal 27.5-35.2 [facility] Comment on above: Performed By: #### A DDONUAPLUS, CUU #### [address] MCV (RBC) [Entitic vol] 85.9 fL Normal 83.5-101 [facility] Comment on above: Performed By: #### A DDONUAPLUS, CUU #### [address] Mean Corpuscular HGB Conc 33.2 g/dL Normal 32.5-35.6 [facility] Comment on above: Performed By: #### A DDONUAPLUS, CUU #### [place] [address] [place] Monocytes (Bld) [#/Vol] 1.4 10*3/uL High 0.0-0.8 [facility] Comment on above: Performed By: #### A DDONUAPLUS, CUU #### [place] [address] [place] Monocytes/100 WBC (Bld) 14.3 % Normal . [facility] Comment on above: Performed By: #### A DDONUAPLUS, CUU #### [place] [address] [place] Neutrophils (Bld) [#/Vol] 6.8 10*3/uL Normal 1.8-7.7 [facility] Comment on above: Performed By: #### A DDONUAPLUS, CUU #### [place] [address] [place] Neutrophils/100 WBC (Bld) 71.9 % Normal . [facility] Comment on above: Performed By: #### A DDONUAPLUS, CUU #### [address] NRBC% 0.0 /100{WBC} Normal 0-0.5 [facility] Comment on above: Performed By: #### A DDONUAPLUS, CUU #### [address] Platelet mean volume (Bld) [Entitic vol] 8.3 fL Normal 6.6-10.1 [facility] Comment on above: Performed By: #### A DDONUAPLUS, CUU #### [address] Platelets (Bld) [#/Vol] 202 10*3/uL Normal 150-450 [facility] Comment on above: Performed By: #### A DDONUAPLUS, CUU #### [address] RBC (Bld) [#/Vol] 4.38 10*6/uL Normal 3.90-5.60 [facility] Comment on above: Performed By: #### A DDONUAPLUS, CUU #### [address] WBC (Bld) [#/Vol] 9.5 10*3/uL Normal 4.1-10.5 [facility] Comment on above: Performed By: #### A DDONUAPLUS, CUU #### [address] Magnesium [Mass/volume] in S marium or PlasmaOrdered By: Isaac Edwards on 01-20-2024 Magnesium [Mass/Vol] 2.1 mg/dL Normal 1.9-2.7 [facility] Comment on above: Result Comment: PERF ORMED BY: [place] [address] PATHOLOGIST PROCESS SAFETY MANAGER OREN OWEN M.D. Performed By: #### A DDONUAPLUS, CUU #### [address] Basic Metabolic Panelon 08-2 Anion gap [Moles/Vol] 11.7 mmol/L Normal 6.0-15.0 [facility] Comment on above: Performed By: #### B MP, CBC #### [address] Calcium [Mass/Vol] 8.5 mg/dL Low 8.6-10.3 [facility] Comment on above: Performed By: #### B MP, CBC #### [address] Chloride [Moles/Vol] 106 mmol/L Normal 98-107 [facility] Comment on above: Performed By: #### B MP, CBC #### [address] CO2 [Moles/Vol] 19.9 mmol/L Low 21.0-31.0 [facility] Comment on above: Performed By: #### B MP, CBC #### [address] Creatinine [Mass/Vol] 1.62 mg/dL High 0.70-1.30 [facility] Comment on above: Performed By: #### B MP, CBC #### [address] Creatinine Clr Calc Pharmacy 42.28 Normal [facility] Comment on above: Result Comment: PERF ORMED BY: [place] [address] PATHOLOGIST PROCESS SAFETY MANAGER OREN OWEN M.D. Performed By: #### B MP, CBC #### [address] GFR/1.73 sq M.predicted MDRD (S/P/Bld) [Vol rate/Area] 42.646 mL/min/{1.73_m2} Normal [facility] Comment on above: Performed By: #### B MP, CBC #### [address] Glucose [Mass/Vol] 145 mg/dL High 70-100 [facility] Comment on above: Result Comment: [facility] Glucose Reference Range is dependent on time and content of last meal. Glucose of more than 200 mg/dL in a nonstressed, ambulatory subject supports the diagnosis of Diabetes Mellitus. ADA recommended reference range Performed By: #### B MP, CBC #### [address] Potassium [Moles/Vol] 3.6 mmol/L Normal 3.5-5.1 [facility] Comment on above: Performed By: #### B MP, CBC #### [address] Sodium [Moles/Vol] 134 mmol/L Low 136-145 [facility] Comment on above: Performed By: #### B MP, CBC #### [address] Urea nitrogen [Mass/Vol] 32 mg/dL High 7-25 [facility] Comment on above: Performed By: #### B MP, CBC #### [address] Complete Blood Count Auto Di ffon 01-19-2024 Basophils (Bld) [#/Vol] 0.0 10*3/uL Normal 0.0-0.2 [facility] Comment on above: Result Comment: PERF ORMED BY: [place] [address] PATHOLOGIST PROCESS SAFETY MANAGER OREN OWEN M.D. Performed By: #### B MP, CBC #### [place] [address] [place] Basophils/100 WBC (Bld) 0.4 % Normal . [facility] Comment on above: Performed By: #### B MP, CBC #### [address] Eosinophils (Bld) [#/Vol] 0.0 10*3/uL Normal 0.0-0.45 [facility] Comment on above: Performed By: #### B MP, CBC #### [address] Eosinophils/100 WBC (Bld) 0.4 % Normal . [facility] Comment on above: Performed By: #### B MP, CBC #### [address] Erythrocyte distribution width (RBC) [Ratio] 15.6 % High 12.0-14.8 [facility] Comment on above: Performed By: #### B MP, CBC #### [address] Hematocrit (Bld) [Volume fraction] 37.1 % Low 38.8-50.0 [facility] Comment on above: Performed By: #### B MP, CBC #### [address] Hemoglobin (Bld) [Mass/Vol] 12.3 g/dL Low 13.0-17.0 [facility] Comment on above: Performed By: #### B MP, CBC #### [address] Lymphocytes (Bld) [#/Vol] 1.0 10*3/uL Normal 1.00-4.8 [facility] Comment on above: Performed By: #### B MP, CBC #### [address] Lymphocytes/100 WBC (Bld) 8.8 % Normal . [facility] Comment on above: Performed By: #### B MP, CBC #### [address] [address] MCH (RBC) [Entitic mass] 28.6 pg Normal 27.5-35.2 [facility] Comment on above: Performed By: #### B MP, CBC #### [address] MCV (RBC) [Entitic vol] 86.5 fL Normal 83.5-101 [facility] Comment on above: Performed By: #### B MP, CBC #### [address] Mean Corpuscular HGB Conc 33.0 g/dL Normal 32.5-35.6 [facility] Comment on above: Performed By: #### B MP, CBC #### [address] Monocytes (Bld) [#/Vol] 1.3 10*3/uL High 0.0-0.8 [facility] Comment on above: Performed By: #### B MP, CBC #### [address] Monocytes/100 WBC (Bld) 11.9 % Normal . T jonatan [facility] Comment on above: Performed By: #### B MP, CBC #### [address] Neutrophils (Bld) [#/Vol] 8.6 10*3/uL High 1.8-7.7 [facility] Comment on above: Performed By: #### B MP, CBC #### [address] Neutrophils/100 WBC (Bld) 78.5 % Normal . [facility] Comment on above: Performed By: #### B MP, CBC #### [address] NRBC% 0.1 /100{WBC} Normal 0-0.5 [facility] Comment on above: Performed By: #### B MP, CBC #### [address] Platelet mean volume (Bld) [Entitic vol] 8.9 fL Normal 6.6-10.1 [facility] Comment on above: Performed By: #### B MP, CBC #### [address] Platelets (Bld) [#/Vol] 165 10*3/uL Normal 150-450 [facility] Comment on above: Performed By: #### B MP, CBC #### [address] [address] [place] RBC (Bld) [#/Vol] 4.30 10*6/uL Normal 3.90-5.60 [facility] Comment on above: Performed By: #### B MP, CBC #### [facility] [address] [place] [address] WBC (Bld) [#/Vol] 11.0 10*3/uL High 4.1-10.5 [facility] Comment on above: Performed By: #### B MP, CBC #### [facility] [address] [place] [address] ECG 12 lead ECGon 01-19-2024 ECG 12 lead ECG [facility] [place] [address] [place] [address] Electrocardiograph Report Signed Patient: Alex Anderson MR#: [id number] 38 : 1945 Acct:[id number] Age/Sex: 78 / M ADM Date: 01/16/24 Loc: Room: [address] [place] [address] Type: ADM IN Attending Dr: Nas Pruett [...] or before 16-Jan-2024) Inferolateral injury pattern ACUTE MO / STEMI Abnormal ECG When compared with ECG of 18-Jan-2024 07:08, No significant change was found Confirmed by Misael Campbell ([id number]) on 01/20/2024 10:18:21 PM Referred By: Electronically Signed By: Misael Campbell Transcribed By: MUS Signed By Misael Campbell MD 01/20/242 Normal [facility] Basic Metabolic Panelon 12-25 Anion gap [Moles/Vol] 11.5 mmol/L Normal 6.0-15.0 [facility] e [facility] Comment on above: Performed By: #### C BC, BMP #### [facility] [address] Calcium [Mass/Vol] 8.7 mg/dL Normal 8.6-10.3 [facility] Comment on above: Performed By: #### C BC, BMP #### [facility] [address] [place] [address] [place] Chloride [Moles/Vol] 107 mmol/L Normal 98-107 [facility] Comment on above: Performed By: #### C BC, BMP #### [facility] [address] [place] [address] [place] CO2 [Moles/Vol] 21.2 mmol/L Normal 21.0-31.0 [facility] Comment on above: Performed By: #### C BC, BMP #### [place] [address] [place] Creatinine [Mass/Vol] 1.59 mg/dL High 0.70-1.30 [facility] Comment on above: Performed By: #### C BC, BMP #### [place] [address] [place] Creatinine Clr Calc Pharmacy 46.65 Normal [facility] Comment on above: Result Comment: PERF ORMED BY: [place] [address] PATHOLOGIST PROCESS SAFETY MANAGER OREN OWEN M.D. Performed By: #### C BC, BMP #### [place] [address] [place] GFR/1.73 sq M.predicted MDRD (S/P/Bld) [Vol rate/Area] 43.613 mL/min/{1.73_m2} Normal [facility] Comment on above: Performed By: #### C BC, BMP #### [address] Glucose [Mass/Vol] 125 mg/dL High 70-100 [facility] Comment on above: Result Comment: [place] Glucose Reference Range is dependent on time and content of last meal. Glucose of more than 200 mg/dL in a nonstressed, ambulatory subject supports the diagnosis of Diabetes Mellitus. ADA recommended reference range Performed By: #### C BC, BMP #### [address] Potassium [Moles/Vol] 3.7 mmol/L Normal 3.5-5.1 [facility] Comment on above: Performed By: #### C BC, BMP #### [address] Sodium [Moles/Vol] 136 mmol/L Normal 136-145 [facility] Comment on above: Performed By: #### C BC, BMP #### [address] Urea nitrogen [Mass/Vol] 29 mg/dL High 7-25 [facility] Comment on above: Performed By: #### C BC, BMP #### [address] Complete Blood Count Auto Di ffon 01-18-2024 Basophils (Bld) [#/Vol] 0.0 10*3/uL Normal 0.0-0.2 [facility] Comment on above: Result Comment: PERF ORMED BY: [place] [address] PATHOLOGIST PROCESS SAFETY MANAGER OREN OWEN M.D. Performed By: #### C BC, BMP #### [place] [address] [place] Basophils/100 WBC (Bld) 0.4 % Normal . T [facility] Comment on above: Performed By: #### C BC, BMP #### [place] [address] [place] Eosinophils (Bld) [#/Vol] 0.0 10*3/uL Normal 0.0-0.45 [facility] Comment on above: Performed By: #### C BC, BMP #### [place] [address] [place] Eosinophils/100 WBC (Bld) 0.2 % Normal . [facility] Comment on above: Performed By: #### C BC, BMP #### [address] Erythrocyte distribution width (RBC) [Ratio] 15.9 % High 12.0-14.8 [facility] Comment on above: Performed By: #### C BC, BMP #### [address] Hematocrit (Bld) [Volume fraction] 38.2 % Low 38.8-50.0 [facility] Comment on above: Performed By: #### C BC, BMP #### [address] Hemoglobin (Bld) [Mass/Vol] 12.7 g/dL Low 13.0-17.0 [facility] Comment on above: Performed By: #### C BC, BMP #### [address] Lymphocytes (Bld) [#/Vol] 1.4 10*3/uL Normal 1.00-4.8 [facility] Comment on above: Performed By: #### C BC, BMP #### [address] Lymphocytes/100 WBC (Bld) 11.5 % Normal . [facility] Comment on above: Performed By: #### C BC, BMP #### [address] MCH (RBC) [Entitic mass] 28.5 pg Normal 27.5-35.2 [facility] Comment on above: Performed By: #### C BC, BMP #### [address] MCV (RBC) [Entitic vol] 85.4 fL Normal 83.5-101 T [facility] Comment on above: Performed By: #### C BC, BMP #### [address] Mean Corpuscular HGB Conc 33.4 g/dL Normal 32.5-35.6 [facility] Comment on above: Performed By: #### C BC, BMP #### [facility] [address] [place] [address] [place] Monocytes (Bld) [#/Vol] 1.5 10*3/uL High 0.0-0.8 [facility] Comment on above: Performed By: #### C BC, BMP #### [facility] [address] [place] [address] [place] Monocytes/100 WBC (Bld) 12.8 % Normal . T [facility] Comment on above: Performed By: #### C BC, BMP #### [facility] [address] [place] [address] [place] Neutrophils (Bld) [#/Vol] 9.1 10*3/uL High 1.8-7.7 [facility] Comment on above: Performed By: #### C BC, BMP #### [facility] [address] [place] [address] [place] Neutrophils/100 WBC (Bld) 75.1 % Normal . [facility] Comment on above: Performed By: #### C BC, BMP #### [place] [address] [place] NRBC% 0.0 /100{WBC} Normal 0-0.5 [facility] Comment on above: Performed By: #### C BC, BMP #### [address] Platelet mean volume (Bld) [Entitic vol] 9.3 fL Normal 6.6-10.1 [facility] Comment on above: Performed By: #### C BC, BMP #### [facility] [address] [place] [address] [place] Platelets (Bld) [#/Vol] 131 10*3/uL Low 150-450 [facility] Comment on above: Performed By: #### C BC, BMP #### [place] [address] [place] RBC (Bld) [#/Vol] 4.47 10*6/uL Normal 3.90-5.60 [facility] Comment on above: Performed By: #### C BC, BMP #### [facility] [address] WBC (Bld) [#/Vol] 12.1 10*3/uL High 4.1-10.5 [facility] Comment on above: Performed By: #### C BC, BMP #### [address] [address] [facility] ECG 12 lead ECGon 01-18-2024 ECG 12 lead ECG [facility] Main [place] [address] [place] [address] Electrocardiograph Report Signed Patient: Alex Anderson MR#: [id number] 38 : 1945 Acct:[id number] Age/Sex: 78 / M ADM Date: 01/16/24 Loc: Room: [address] [place] [address] Type: ADM IN Attending Dr: Nas Pruett [...] Castro MD 0 01/18/24 1102 Normal [facility] Basic Metabolic Panelon 12-25 Anion gap [Moles/Vol] 12.3 mmol/L Normal 6.0-15.0 [facility] Comment on above: Performed By: #### B MP, CBC #### [place] [id number] [facility] Calcium [Mass/Vol] 8.9 mg/dL Normal 8.6-10.3 [facility] Comment on above: Performed By: #### B MP, CBC #### [address] Chloride [Moles/Vol] 105 mmol/L Normal 98-107 [facility] Comment on above: Performed By: #### B MP, CBC #### [address] CO2 [Moles/Vol] 22.2 mmol/L Normal 21.0-31.0 [facility] Comment on above: Performed By: #### B MP, CBC #### [address] Creatinine [Mass/Vol] 1.70 mg/dL High 0.70-1.30 [facility] Comment on above: Performed By: #### B MP, CBC #### [place] [address] [place] Creatinine Clr Calc Pharmacy 44.35 Normal [facility] Comment on above: Performed By: #### B MP, CBC #### [address] GFR/1.73 sq M.predicted MDRD (S/P/Bld) [Vol rate/Area] 40.249 mL/min/{1.73_m2} Normal [facility] Comment on above: Performed By: #### B ROBYN, CBC #### [address] Glucose [Mass/Vol] 115 mg/dL High 70-100 [facility] Comment on above: Result Comment: [place] Glucose Reference Range is dependent on time and content of last meal. Glucose of more than 200 mg/dL in a nonstressed, ambulatory subject supports the diagnosis of Diabetes Mellitus. ADA recommended reference range Performed By: #### B MP, CBC #### [address] Potassium [Moles/Vol] 4.5 mmol/L Normal 3.5-5.1 [facility] Comment on above: Performed By: #### B MP, CBC #### [facility] [address] Sodium [Moles/Vol] 135 mmol/L Low 136-145 [facility] Comment on above: Performed By: #### B MP, CBC #### [facility] [address] Urea nitrogen [Mass/Vol] 26 mg/dL High 7-25 [facility] Comment on above: Performed By: #### B MP, CBC #### [facility] [address] Capillary blood glucose elan urement by glucometer (mass/volume)Ordered By: Nas Pruett on 01-17-2024 Glucose [Mass/Vol] 126 mg/dL Normal [facility] Comment on above: Random Glucose Refer ence Range is dependent on time and content of last meal. Glucose of more than 200 mg/dL in a nonstressed, ambulatory subject supports the diagnosis of Diabetes Mellitus. Result Comment: [place] om Glucose Reference Range is dependent on time and content of last meal. Glucose of more than 200 mg/dL in a nonstressed, ambulatory subject supports the diagnosis of Diabetes Mellitus. PERFORMED BY: [place] [address] PATHOLOGIST PROCESS SAFETY MANAGER OREN OWEN M.D. Performed By: #### A DDMOEUAJONATHAN, CUU #### [address] Cholesterol [Mass/volume] in Serum or PlasmaOrdered By: Nas Pruett on 01-17-2024 Cholesterol [Mass/Vol] 74 mg/dL Low 140-200 [facility] Comment on above: Chol less than 200 m g/dl low riskChol 201-239 mg/dl borderline riskChol 240 mg/dl and greater high risk Result Comment: Chol less than 200 mg/dl low risk Chol 201-239 mg/dl borderline risk Chol 240 mg/dl and greater high risk Performed By: #### B MP, CBC #### [address] Cholesterol in LDL Calc [Mas s/Vol]Ordered By: Nas Pruett on 01-17-2024 Cholesterol in LDL [Mass/Vol] 28 mg/dL 0-[address] [facility] Comment on above: LDL ATP III CLASSIFI CATIONLDL less than 100 mg/dL OptimalLDL 100-129 mg/dL Near or above optimalLDL 130-159 mg/dL Borderline highLDL 160-189 mg/dL HighLDL greater than 189 mg/dL Very high Cholesterol in VLDL Calc [Ma ss/Vol]Ordered By: Nas Pruett on 01-17-2024 Cholesterol in VLDL [Mass/Vol] 13 mg/dL [facility] Dipstick and Microscopicon 0 01-17-2024 Appearance (U) Cloudy Critically abnormal Clear [facility] Comment on above: Order Comment: Name Collection Type:: Villarreal Catheter Performed By: #### A DDONUAPLUS, CUU #### [facility] [address] [place] [id number] [place] Bacteria,Urine 2+ High None Seen [facility] Comment on above: Order Comment: Name Collection Type:: Villarreal Catheter Performed By: #### A DDONUAPLUS, CUU #### [facility] [address] [place] [id number] [place] Bilirubin,Urine Negative Normal Negative [facility] Comment on above: Order Comment: Name Collection Type:: Villarreal Catheter Performed By: #### A DDONUAPLUS, CUU #### [facility] [address] [place] [address] [place] Color (U) Light-Yellow Normal Yellow [facility] Comment on above: Order Comment: Name Collection Type:: Villarreal Catheter Performed By: #### A DDONUAPLUS, CUU #### [facility] [address] [place] [address] [place] Glucose Ql (U) Normal Normal Normal [facility] Comment on above: Order Comment: Name Collection Type:: Villarreal Catheter Performed By: #### A DDONUAPLUS, CUU #### [facility] [address] [place] [address] [place] Hyaline Casts,Urine None Normal 0-8 [facility] Comment on above: Order Comment: Name Collection Type:: Villarreal Catheter Performed By: #### A DDONUAPLUS, CUU #### [address] Ketones Ql (U) Negative Normal Negative [facility] Comment on above: Order Comment: Name Collection Type:: Villarreal Catheter Performed By: #### A DDONUAPLUS, CUU #### [address] Leukocyte esterase Test strip Ql (U) 3+ High Negative [facility] Comment on above: Order Comment: Name Collection Type:: Villarreal Catheter Performed By: #### A DDONUAPLUS, CUU #### [address] Mucus,Urine Rare Normal [facility] Comment on above: Order Comment: Name Collection Type:: Villarreal Catheter Result Comment: PERF ORMED BY: [place] [address] PATHOLOGIST PROCESS SAFETY MANAGER OREN OWEN M.D. Performed By: #### A DDONUAPLUS, CUU #### [address] Nitrite,Urine Negative Normal Negative [facility] Comment on above: Order Comment: Name Collection Type:: Villarreal Catheter Performed By: #### A DDONUAPLUS, CUU #### [address] Occult Blood,Urine Trace High Negative [facility] Comment on above: Order Comment: Name Collection Type:: Villarreal Catheter Result Comment: PERF ORMED BY: [place] [address] PATHOLOGIST PROCESS SAFETY MANAGER OREN OWEN M.D. Performed By: #### A DDONUAPLUS, CUU #### [address] pH (U) 6.0 [pH] Normal 5.0-9.0 [facility] Comment on above: Order Comment: Name Collection Type:: Villarreal Catheter Performed By: #### A DDONUAPLUS, CUU #### [place] [address] [place] Protein,Urine Trace High Negative [facility] Comment on above: Order Comment: Name Collection Type:: Villarreal Catheter Performed By: #### A DDONUAPLUS, CUU #### [place] [address] [place] RBC,Urine 3-4 Normal 0-4 [facility] Comment on above: Order Comment: Name Collection Type:: Villarreal Catheter Performed By: #### A DDONUAPLUS, CUU #### [place] [address] [place] Specificy [place],Urine 1.018 Normal 1.00 1-1.03 0 [facility] Comment on above: Order Comment: Name Collection Type:: Villarreal Catheter Performed By: #### A DDONUAPLUS, CUU #### [place] [address] [place] Squamous Epithelial Cell,Urine 1-2 Normal 0-2 [facility] Comment on above: Order Comment: Name Collection Type:: Villarreal Catheter Performed By: #### A DDONUAPLUS, CUU #### [place] [address] [place] Urobilinogen,Urine Normal Normal Normal [facility] Comment on above: Order Comment: Name Collection Type:: Villarreal Catheter Performed By: #### A DDONUAPLUS, CUU #### [place] [address] [place] WBC,Urine 10-19 High 0-4 [facility] Comment on above: Order Comment: Name Collection Type:: Villarreal Catheter Performed By: #### A DDONUAPLUS, CUU #### [place] [address] [place] ECG 12 lead ECGon 01-17-2024 ECG 12 lead ECG [facility] [place] [address] Electrocardiograph Report Signed Patient: Alex Anderson MR#: [id number] 38 : 1945 Acct:[id number] Age/Sex: 78 / M ADM Date: 01/16/24 Loc: Room: 9A8572-5 Type: ADM IN Attending Dr: Nas Pruett [...] or before 16-Jan-2024) Inferior injury pattern ACUTE MO / STEMI Abnormal ECG When compared with ECG of 16-Jan-2024 19:53, (Unconfirmed) Serial changes of evolving Septal infarct present Confirmed by ANA CASTRO MD ([facility]) on 01/17/2024 9:52:42 AM Referred By: Electronically Signed By: ANA CASTRO MD Transcribed By: MUS Signed By Ana Castro MD 0 01/17/24 0952 Normal [facility] ECH echo transthoracicon ECH echo transthoracic [facility] [place] [address] Echocardiogram Signed Patient: Alex Anderson MR#: [id number] [birth year] : 1945 Acct:[id number] Age/Sex: 78 / M ADM Date: 01/16/24 Loc: Room: 1M1560-1 Type: ADM IN Attending Dr: Nas Pruett DO Ordering Provider: Nas Pruett DO Date of Service: 01/17/24 ECH/ECH echo transthoracic: Ant STEMI Copies to: MD Nas Hu DO BSA: 2.2 m2 BP: 85/55 mmHg [...] Ana Castro MD 01/17/24 1150 Normal [facility] Glucose Poct Glucometerson 0 01-17-2024 Glucose [Mass/Vol] 115 mg/dL Normal [facility] Comment on above: Result Comment: [place] om Glucose Reference Range is dependent on time and content of last meal. Glucose of more than 200 mg/dL in a nonstressed, ambulatory subject supports the diagnosis of Diabetes Mellitus. PERFORMED BY: [place] [address] PATHOLOGIST PROCESS SAFETY MANAGER OREN OWEN M.D. Performed By: #### A MAISHA GIFFORDU #### [address] Glucose [Mass/Vol] 114 mg/dL Normal [facility] Comment on above: Result Comment: [place] Glucose Reference Range is dependent on time and content of last meal. Glucose of more than 200 mg/dL in a nonstressed, ambulatory subject supports the diagnosis of Diabetes Mellitus. PERFORMED BY: [place] [address] PATHOLOGIST PROCESS SAFETY MANAGER OREN OWEN M.D. Performed By: #### B MP, CBC #### [address] Glucose [Mass/Vol] 125 mg/dL Normal [facility] Comment on above: Result Comment: [place] Glucose Reference Range is dependent on time and content of last meal. Glucose of more than 200 mg/dL in a nonstressed, ambulatory subject supports the diagnosis of Diabetes Mellitus. PERFORMED BY: [place] [address] PATHOLOGIST PROCESS SAFETY MANAGER OREN OWEN M.D. Performed By: #### B MP, CBC #### [place] [id number] [facility] Lipid Panelon 01-17-2024 LDL Cholesterol,Calculated 28 mg/dL Normal 0-100 [facility] Comment on above: Result Comment: LDL ATP III CLASSIFICATION LDL less than 100 mg/dL Optimal LDL 100-129 mg/dL Near or above optimal LDL 130-159 mg/dL Borderline high LDL 160-189 mg/dL High LDL greater than 189 mg/dL Very high Performed By: #### B MP, CBC #### [address] Triglyceride w/Reflex 67 mg/dL Normal 0-149 [facility] Comment on above: Result Comment: TRIG ATP III CLASSIFICATION TRIG less than 150 mg/dL Normal TRIG 150-199 mg/dL Borderline high TRIG 200-500 mg/dL High TRIG greater than 500 mg/dL Very high Standard traceable to the Center for Disease Conrtrol and Prevention (CDC) test method. Performed By: #### B MP, CBC #### [address] VLDL CHOLESTEROL 13 mg/dL Normal [facility] Comment on above: Performed By: #### B MP, CBC #### [address] Platelet adequacy [Presence] in Blood by Light microscopyOrdered By: Nas Pruett on 01-17-2024 Platelets LM Ql (Bld) Decreased Normal [facility] Platelet morphology finding [Identifier] in BloodOrdered By: Nas Pruett on 01-17-2024 Platelet morphology finding Nom (Bld) Normal Normal [facility] RBC morphologyOrdered By: Nas Pruett on 01-17-2024 RBC morphology finding Nom (Bld) N/A [facility] Scan and CBCon 01-17-2024 Basophils (Bld) [#/Vol] 0.1 10*3/uL Normal 0.0-0.2 [facility] Comment on above: Result Comment: PERF ORMED BY: [place] [address] PATHOLOGIST PROCESS SAFETY MANAGER OREN OWEN M.D. Performed By: #### B MP, CBC #### [address] Basophils/100 WBC (Bld) 0.4 % Normal . [facility] Comment on above: Performed By: #### B MP, CBC #### [address] [place] [address] [place] Eosinophils (Bld) [#/Vol] 0.0 10*3/uL Normal 0.0-0.45 [facility] Comment on above: Performed By: #### B MP, CBC #### [address] Eosinophils/100 WBC (Bld) 0.0 % Normal . [facility] Comment on above: Performed By: #### B MP, CBC #### [address] Erythrocyte distribution width (RBC) [Ratio] 15.8 % High 12.0-14.8 [facility] Comment on above: Performed By: #### B MP, CBC #### [address] Hematocrit (Bld) [Volume fraction] 38.4 % Low 38.8-50.0 [facility] Comment on above: Performed By: #### B MP, CBC #### [address] Hemoglobin (Bld) [Mass/Vol] 12.7 g/dL Low 13.0-17.0 [facility] Comment on above: Performed By: #### B MP, CBC #### [address] Lymphocytes (Bld) [#/Vol] 1.2 10*3/uL Normal 1.00-4.8 [facility] Comment on above: Performed By: #### B MP, CBC #### [address] Lymphocytes/100 WBC (Bld) 6.9 % Normal . [facility] Comment on above: Performed By: #### B MP, CBC #### [address] MCH (RBC) [Entitic mass] 28.4 pg Normal 27.5-35.2 [facility] Comment on above: Performed By: #### B MP, CBC #### [address] [address] [place] MCV (RBC) [Entitic vol] 86.1 fL Normal 83.5-101 [facility] Comment on above: Performed By: #### B MP, CBC #### [address] Mean Corpuscular HGB Conc 33.0 g/dL Normal 32.5-35.6 [facility] Comment on above: Performed By: #### B MP, CBC #### [address] Monocytes (Bld) [#/Vol] 2.8 10*3/uL High 0.0-0.8 [facility] Comment on above: Performed By: #### B MP, CBC #### [address] Monocytes/100 WBC (Bld) 15.6 % Normal . [facility] Comment on above: Performed By: #### B MP, CBC #### [address] Neutrophils (Bld) [#/Vol] 13.6 10*3/uL High 1.8-7.7 [facility] Comment on above: Performed By: #### B MP, CBC #### [address] Neutrophils/100 WBC (Bld) 77.1 % Normal . [facility] Comment on above: Performed By: #### B MP, CBC #### [address] NRBC% 0.0 /100{WBC} Normal 0-0.5 [facility] Comment on above: Performed By: #### B MP, CBC #### [address] Platelet Estimate Decreased Normal Normal [facility] Comment on above: Performed By: #### B MP, CBC #### [address] Platelet mean volume (Bld) [Entitic vol] 9.0 fL Normal 6.6-10.1 [facility] Comment on above: Performed By: #### B MP, CBC #### [address] Platelet Morphology Normal Normal Normal [facility] Comment on above: Result Comment: PERF ORMED BY: [place] [address] PATHOLOGIST PROCESS SAFETY MANAGER OREN OWEN M.D. Performed By: #### B MP, CBC #### [address] Platelets (Bld) [#/Vol] 135 10*3/uL Low 150-450 [facility] Comment on above: Performed By: #### B MP, CBC #### [address] RBC (Bld) [#/Vol] 4.46 10*6/uL Normal 3.90-5.60 [facility] Comment on above: Performed By: #### B MP, CBC #### [address] WBC (Bld) [#/Vol] 17.7 10*3/uL High 4.1-10.5 [facility] Comment on above: Performed By: #### B MP, CBC #### [address] Serum or plasma high density lipoprotein (HDL) cholesterol measurementOrdered By: Nas Pruett on 01-17-2024 Cholesterol in HDL [Mass/Vol] 33 mg/dL Normal 23-[address] [facility] Comment on above: HDL CHOL ATP-III CLA SSIFICATION Cardiovascular RiskHDL > or equal to 60 mg/dL LOWHDL < 40 mg/dL HIGH Result Comment: HDL CHOL ATP-III CLASSIFICATION Cardiovascular Risk HDL > or equal to 60 mg/dL LOW HDL < 40 mg/dL HIGH Performed By: #### B MP, CBC #### [address] Serum or plasma total choles terol/high density lipoprotein (HDL) cholesterol mass ratOrdered By: Nas Pruett on 01-17-2024 Cholesterol.total/Sonya sterol in HDL [Mass ratio] 2.2 {ratio} Normal <5.[address] [facility] Comment on above: Result Comment: PERF ORMED BY: [place] [address] PATHOLOGIST PROCESS SAFETY MANAGER OREN OWEN M.D. Performed By: #### B MP, CBC #### [facility] [address] [place] [address] Triglyceride [Mass/volume] i n Serum or PlasmaOrdered By: Nas Pruett on 01-17-2024 Triglyceride [Mass/Vol] 67 mg/dL 0-149 [facility] Comment on above: TRIG ATP III CLASSIF ICATIONTRIG less than 150 mg/dL NormalTRIG 150-199 mg/dL Borderline highTRIG 200-500 mg/dL High TRIG greater than 500 mg/dL Very highStandard traceable to the Center for Disease Conrtrol and Prevention (CDC) test method. Troponin I High Sensitivityo n 01-17-2024 Troponin I High Sensitivity 44580.6 pg/mL Off scale high 0.0-20.0 [facility] Comment on above: Result Comment: Crit ical Result I_TnIHS_d:88329.6 Called to and read back by: WU MCDANIEL at: 01/17/2024 06:17:54 by:[id number] PERFORMED BY: [place] [address] PATHOLOGIST PROCESS SAFETY MANAGER OREN OWEN M.D. Performed By: #### B MP, CBC #### [place] [id number] [facility] Troponin I.cardiac [Mass/vol ume] in Serum or Plasma by Detection limit <= 0.01 ng/Ordered By: Nas Pruett on 01-17-2024 Troponin I.cardiac DL <= 0.01 ng/mL [Mass/Vol] 85482.6 pg/mL High 0.0-20.[address] [facility] Comment on above: Critical Result I_Tn IHS_d:95480.6 Called to and read back by: WU MCDANIEL at: 01/17/2024 06:17:54 by:[id number] Urine Cultureon 01-17-2024 Bacteria identified Cx Nom (U) ORGANISM: Enterococcus faecalis (O:ENTFAC) [place] Count >100,000 Aerobic RITESH Charge (PCMIC38) SUSCEPTIBILITY [...] RESISTANT TO ALL B-LACTAM DRUGS. PERFORMED BY: [place] [address] PATHOLOGIST PROCESS SAFETY MANAGER OREN OWEN M.D. Normal [facility] Comment on above: Performed By: #### C UU #### [address] Urine culture routineOrdered By: Justina Lara on 01-17-2024 Bacteria identified Cx Nom (U) Enterococcus faecalis Abnormal [facility] XR chest 1V portableon 01-16 XR chest 1V portable [place] [address] XRay Report Signed Patient: Alex Anderson MR#: [id number] [birth year] : 1945 Acct:[id number] Age/Sex: 78 / M ADM Date: 01/16/24 Loc: Room: [address] [place] [address] Type: ADM IN Attending Dr: Nas Pruett [...] Corky Max M.D.01/17/2024 11:34 AM Dictation Location: [place] [address] Transcribed By: [facility] 01/17/24 1134 Dictated By: Corky Max II, MD 01/17/24 1132 Signed By: 01/17/24 1134 Normal [facility] ECG 12 lead ECGon 01-16-2024 ECG 12 lead ECG [facility] [place] [place] [address] Electrocardiograph Report Signed Patient: Alex Anderson MR#: [id number] [birth year] : 1945 Acct:[id number] Age/Sex: 78 / M ADM Date: 01/16/24 Loc: Room: [address] [place] [address] Type: ADM IN Attending Dr: Nas Pruett [...] Castro MD 0 01/17/24 0952 Normal [facility] ECG 12 lead ECG [facility] Main [place] [address] [place] [address] Electrocardiograph Report Signed Patient: Alex Anderson MR#: [id number] [birth year] : 1945 Acct:[id number] Age/Sex: 78 / M ADM Date: 01/16/24 Loc: Room: [address] [place] [address] Type: ADM IN Attending Dr: Nas Pruett [...] Castro MD 0 01/17/24 0057 Normal [facility] Glucose Poct Glucometerson 0 01-16-2024 Commemt1 Glu2: Cleaned Meter Normal [facility] Comment on above: Result Comment: PERF ORMED BY: [place] [address] PATHOLOGIST PROCESS SAFETY MANAGER OREN OWEN M.D. Performed By: #### A JHONNY GIFFORD #### [facility] [address] [place] [address] [place] Glucose [Mass/Vol] 118 mg/dL Normal [facility] Comment on above: Result Comment: [place] om Glucose Reference Range is dependent on time and content of last meal. Glucose of more than 200 mg/dL in a nonstressed, ambulatory subject supports the diagnosis of Diabetes Mellitus. Performed By: #### A DDONUAPLUS, CUU #### [address] Glucose [Mass/Vol] 119 mg/dL Normal [facility] Comment on above: Result Comment: [place] om Glucose Reference Range is dependent on time and content of last meal. Glucose of more than 200 mg/dL in a nonstressed, ambulatory subject supports the diagnosis of Diabetes Mellitus. PERFORMED BY: [place] [address] PATHOLOGIST PROCESS SAFETY MANAGER OREN OWEN M.D. Performed By: #### A NAVUAJONATHAN, CUU #### [address] No Panel InformationOrdered By: Nas Pruett on 01-16-2024 Bedside Glucose Comment Glu2: cleaned meter [facility] Troponin I High Sensitivityo n 01-16-2024 Troponin I High Sensitivity 85573.2 pg/mL Off scale high 0.0-20.0 [facility] Comment on above: Result Comment: Crit ical Result I_TnIHS_d:03077.2 Called to and read back by: BRIDGETTE LUIS at: 01/16/2024 20:40:51 by:[id number] PERFORMED BY: [place] [address] PATHOLOGIST PROCESS SAFETY MANAGER OREN OWEN M.D. Performed By: #### B MP, CBC #### [address] Troponin I High Sensitivity 462223.4 pg/mL Off scale high 0.0-20.0 [facility] Comment on above: Result Comment: Crit ical Result I_TnIHS_d:695879.4 Called to and read back by: BROOKE CANDELARIA at: 01/16/2024 18:52:06 by:[email or web address] PERFORMED BY: [place] [address] PATHOLOGIST PROCESS SAFETY MANAGER OREN OWEN M.D. Performed By: #### A ИРИНА, CUU #### [place] [id number] [facility] Troponin I High Sensitivity 214033.2 pg/mL Off scale high 0.0-20.0 [facility] Comment on above: Result Comment: Crit ical Result I_TnIHS_d:485270.2 Called to and read back by: BROOKE CANDELARIA at: 01/16/2024 16:28:58 by:[id number] PERFORMED BY: [place] [address] PATHOLOGIST PROCESS SAFETY MANAGER OREN OWEN M.D. Performed By: #### B MP, CBC #### [address] Troponin I High Sensitivity 22420.4 pg/mL Off scale high 0.0-20.0 [facility] Comment on above: Result Comment: Crit ical Result I_TnIHS_d:47126.4 Called to and read back by: BROOKE CANDELARIA at: 01/16/2024 14:15:37 by:[email or web address] PERFORMED BY: [place] [address] PATHOLOGIST PROCESS SAFETY MANAGER OREN OWEN M.D. Performed By: #### A ИРИНА, CUU #### [place] [id number] [facility] No Panel InformationOrdered By: Willy Labmert on 01-14-2024 Miscellaneous Pathology Test See comment [facility] Comment on above: See report. Scanned copy available in EMR. Pathology Request for Lab Co rpon 01-14-2024 Pathology Request for Lab Ashley Normal [facility] Comment on above: Order Comment: PATHO LOGY GI SPECIMEN Result Comment: See report. Scanned copy available in EMR. PERFORMED BY: [place] [address] PATHOLOGIST PROCESS SAFETY MANAGER OREN OWEN M.D. Performed By: #### P ATH TO [facility] #### [facility] [address] [place] [address] [place] Cholesterol [Mass/volume] in Serum or PlasmaOrdered By: Teo Al on 12-26-2023 Cholesterol [Mass/Vol] 91 mg/dL Low 140-200 [facility] Comment on above: Chol less than 200 m g/dl low riskChol 201-239 mg/dl borderline riskChol 240 mg/dl and greater high risk Result Comment: Chol less than 200 mg/dl low risk Chol 201-239 mg/dl borderline risk Chol 240 mg/dl and greater high risk Performed By: #### A DORAONUAJONATHAN, CUU #### [facility] [address] [place] [id number] [place] Cholesterol in LDL Calc [Mas s/Vol]Ordered By: Teo Al on 12-26-2023 Cholesterol in LDL [Mass/Vol] 37 mg/dL 0-[address] [facility] Comment on above: LDL ATP III CLASSIFI CATIONLDL less than 100 mg/dL OptimalLDL 100-129 mg/dL Near or above optimalLDL 130-159 mg/dL Borderline highLDL 160-189 mg/dL HighLDL greater than 189 mg/dL Very high Cholesterol in VLDL Calc [Ma ss/Vol]Ordered By: Teo Al on 12-26-2023 Cholesterol in VLDL [Mass/Vol] 18 mg/dL [facility] Lipid Panelon 12-26-2023 LDL Cholesterol,Calculated 37 mg/dL Normal 0-100 [facility] Comment on above: Result Comment: LDL ATP III CLASSIFICATION LDL less than 100 mg/dL Optimal LDL 100-129 mg/dL Near or above optimal LDL 130-159 mg/dL Borderline high LDL 160-189 mg/dL High LDL greater than 189 mg/dL Very high Performed By: #### A DDONUAPLUS, CUU #### [facility] [address] [place] [id number] [place] Triglyceride w/Reflex 94 mg/dL Normal 0-149 [facility] Comment on above: Result Comment: TRIG ATP III CLASSIFICATION TRIG less than 150 mg/dL Normal TRIG 150-199 mg/dL Borderline high TRIG 200-500 mg/dL High TRIG greater than 500 mg/dL Very high Standard traceable to the Center for Disease Conrtrol and Prevention (CDC) test method. Performed By: #### A ИРИНА, CUU #### [address] VLDL CHOLESTEROL 18 mg/dL Normal [facility] Comment on above: Performed By: #### A ИРНИА, CUU #### [address] Serum or plasma high density lipoprotein (HDL) cholesterol measurementOrdered By: Teo Al on 12-26-2023 Cholesterol in HDL [Mass/Vol] 35 mg/dL Normal 23-[address] [facility] Comment on above: HDL CHOL ATP-III CLA SSIFICATION Cardiovascular RiskHDL > or equal to 60 mg/dL LOWHDL < 40 mg/dL HIGH Result Comment: HDL CHOL ATP-III CLASSIFICATION Cardiovascular Risk HDL > or equal to 60 mg/dL LOW HDL < 40 mg/dL HIGH Performed By: #### A ИРИНА, CUU #### [address] Serum or plasma total choles terol/high density lipoprotein (HDL) cholesterol mass ratOrdered By: Teo Al on 12-26-2023 Cholesterol.total/Sonya sterol in HDL [Mass ratio] 2.6 {ratio} Normal <5.[address] [facility] Comment on above: Result Comment: PERF ORMED BY: [place] [address] PATHOLOGIST PROCESS SAFETY MANAGER OREN OWEN M.D. Performed By: #### A ИРИНА, CUU #### [address] Triglyceride [Mass/volume] i n Serum or PlasmaOrdered By: Teo Al on 12-26-2023 Triglyceride [Mass/Vol] 94 mg/dL 0-149 [facility] Comment on above: TRIG ATP III [...] APRN, [place] X Where: [facility] Erythrocyte distribution wid th Auto (RBC) [Ratio]on 10-16-2023 Erythrocyte distribution width (RBC) [Ratio] 15.4 % High 11.0-15.[address] [facility] Hematocrit Auto (Bld) [Volum e fraction]on 10-16-2023 Hematocrit (Bld) [Volume fraction] 41.3 % Low 42.0-54.[address] [facility] Hemoglobin [Mass/volume] in Bloodon 10-16-2023 Hemoglobin (Bld) [Mass/Vol] 13.3 g/dL Low 14.0-18.[address] [facility] Laboratory - Chemistry and C hemistry - challengeon 10-16-2023 Magnesium [Mass/Vol] 2.1 mg/dL 1.8-2.4 [facility] Urate [Mass/Vol] 5.9 mg/dL 3.5-7.2 [facility] Leukocytes [#/volume] correc phil for nucleated erythrocytes in Blood by Automated counon 10-16-2023 WBC corrected for nucl RBC Auto (Bld) [#/Vol] 9.3 10 3/uL 4.0-11.[address] [facility] MCH Auto (RBC) [Entitic mass ]on 10-16-2023 MCH (RBC) [Entitic mass] 27.8 pg 25.9-34.[address] [facility] MCHC Auto (RBC) [Mass/Vol]on 10-16-2023 MCHC (RBC) [Mass/Vol] 32.2 g/dL 29.9-35.2 [facility]ir [facility] MCV Auto (RBC) [Entitic vol] on 10-16-2023 MCV (RBC) [Entitic vol] 86.2 fL 80.0-94.0 [facility] No Panel Informationon 10-15 Phosphorus Level 2.7 mg/dL 2.6-4.7 [facility] Platelet mean volume Auto (B ld) [Entitic vol]on 10-16-2023 Platelet mean volume (Bld) [Entitic vol] 10.1 fL 9.5-13.[address] [facility] Platelets Auto (Bld) [#/Vol] on 10-16-2023 Platelets (Bld) [#/Vol] 197 10 3/uL 150-[address] [facility] RBC Auto (Bld) [#/Vol]on RBC (Bld) [#/Vol] 4.79 10 6/uL 4.70-6.10 [facility] UroVysion Fish and Urine Cyt o (P4 Labs)on 10-10-2023 UVFISH & UC Diagnosis Info Invalid Interpretation Code [facility] Comment on above: Result Comment: A:Ur ine,Urine:Bladder [...] on: 10/10/2023 11:17:43 Performed By: #### 1 [id number] #### [facility] [address] [place] [address] Consent for Procedure/Surger yon 10-08-2023 Consent for Procedure/Surgery [id number]#1.[facility] Ambulatory Visit Summaryon 0 10-07-2023 Ambulatory Visit [...] 2023 10:30 AM EDT Where: [facility] Ambulatory Visit Summaryon 0 10-03-2023 [...] [facility] [address] [place] [phone] Medications What How Much When Instructions Unchanged [...] is inserted (more content not included)... Normal [facility] Recordson 2023 [facility] Records [id number]#1.00TIFF Normal [facility] Patient Educationon 10-03-19 24 Patient Education Urology Acute Urinary Retention, Male [...] these instructions at home: Medicines ? Take fcmp-lik-iiorktk and prescription medicines only as told by [...] provider. Document Revised: 01/31/2021 Document Reviewed: 01/31/2021 [employer] Patient Education ? 2022 [employer] [facility] UroVysion Fish and Urine Cyt o ([facility]4 Labs)on 10-03-2023 [facility] Method of Extraction Bladder [facility] Comment on above: Performed By: #### 1 [id number] #### [facility] [address] [place] [address] [facility] Number of Jars 1 Invalid Interpretation Code [facility] Comment on above: Performed By: #### 1 [id number] #### [facility] [address] [place] [address] [facility] Specimen Urine Normal [facility] Comment on above: Performed By: #### 1 [id number] #### [facility] [address] [place] [address] [facility] Type of Service Technical Only Normal [facility] Comment on above: Performed By: #### 1 [id number] #### [facility] [address] [place] [address] Urology Office/Clinic Noteon 10-03-2023 Urology Office/Clinic Note [...] Urinary retention (R33.9: Retention of urine, unspecified) [facility] ER on 09/15/22 due to catheter [...] with Villarreal. Most recently, pt presented to [facility] ER 09/29/23 and 09/30/23 due to [...] [facility] [address], [place] [phone] Additional Instructions: Cysto/FISH/cytol in 6 mos & [...] with uri (more content not included)... Normal [facility] Comment on above: Result Comment: Elec tronically Signed By: Katia JACOBS MD\.br\Date and Time Signed: 10/03/23 14:24 EDT\.br\Electronically Co-Signed By: Na Gerardo.br\Date and Time Co-Signed: 10/03/23 14:19 EDT ED Note-Physicianon 10-02-19 ED Note-Physician [id number]#1.00TIFF Normal [facility] Laboratory - Chemistry and C hemistry - challengeon 09-30-2023 Bilirubin Ql (U) Negative [facility] Glucose (U) [Mass/Vol] [facility] Ketones Ql (U) Negative [facility] pH (U) 7.0 [pH] [facility] Specific gravity (U) [Rel density] 1.[address] [facility] Urobilinogen (U) [Mass/Vol] 0.2 mg/dL [facility] Laboratory - Specimen inform ationon 09-30-2023 Color (U) LtYellow [facility] Laboratory - Urinalysison Leukocyte esterase Test strip Ql (U) Large [facility] Nitrite Ql (U) Positive [facility] Protein Ql (U) [address] [facility] CT abdomen pelvis wo conon 0 08-18-2023 CT abdomen pelvis wo con [place] [address] CT Scan Report Signed Patient: Alex Anderson MR#: [id number] 38 : 1945 Acct:[id number] Age/Sex: 77 / M ADM Date: 08/18/23 Loc: CT Room: Type: [facility] Attending Dr: Margarito Valentine MD Copies [...] aneurysm suboptimally evaluated without IV contrast. The sleetmute aneurysmal sac has decreased in size now measuring 5.3 cm in greatest axial dimension.[ GI: Stomach is grossly unremarkable. Small bowel appears nondilated. No acute colonic abnormality.[ Pelvis:[Prostatomegaly. Vlilarreal catheter is in place. There appears to be wall thickening and surrounding inflammatory changes involving the urinary bladder.] Peritoneum/Retroperitoneum :No free air, free fluid or lymphadenopathy.[ Abd wall/Bones:Abdominal wall demonstrates no acute findings. Osseous structures demonstrate degenerative change.[ CT/CT abdomen pelvis wo con IMPRESSION: 1. Endovascular repair of a fusiform type infrarenal abdominal aortic aneurysm with interval decrease of the sleetmute aneurysmal sac since the prior CTA study. The stent is suboptimally evaluated due to lack of IV contrast. 2. Prostatomegaly with Villarreal catheter in place. There appears to be urinary bladder wall thickening and inflammatory changes suspicious for cystitis. Correlation with urinalysis is recommended. Impression dictated by: Rogelio Agustin Jr., ElizabethOSigrid08/18/2023 3:18 PM Dictation Location: [place] [address] Transcribed By: [facility] 08/18/23 1518 Dictated By: Rogelio Agustin Jr, DO 08/18/23 1503 Signed By: 08/18/23 1518 Normal [facility] ISTAT XRay CREon 08-18-2023 ISTAT GFR 26.776 Normal [facility] Comment on above: Result Comment: PERF ORMED BY: [place] [address] PATHOLOGIST PROCESS SAFETY MANAGER OREN OWEN M.D. Performed By: #### A JHONNY GIFFORD #### [address] No Panel InformationOrdered By: Margarito Valentine on 08-18-2023 Bedside Estimated GFR (eGFR) 26.[address] [facility] Whole blood creatinine measu rementOrdered By: Margarito Valentine on 08-18-2023 Creatinine [Mass/Vol] 2.4 mg/dL High 0.6-1.3 [facility] Comment on above: ER/ESD physician is notified/shown all ISTAT results.Critical values may be confirmed by laboratory testing ifdeemed necessary by ER attending doctor. Result Comment: ER/E SD physician is notified/shown all ISTAT results. Critical values may be confirmed by laboratory testing if deemed necessary by ER attending doctor. Performed By: #### A JHONNY GIFFORD #### [place] [id number] [facility] ED Note-Physicianon 08-07-19 ED Note-Physician [id number]#1.00TIFF Normal [facility] ED Note-Physicianon 08-06-19 ED Note-Physician [id number]#1.00TIFF Normal [facility] ED Note-Physician [id number]#1.00TIFF Normal [facility] ED Note-Physician [id number]#1.00TIFF Normal [facility] Lab Reportson 08-06-2023 Lab Reports [id number]#1.00TIFF Normal [facility] Lab Reports [id number]#1.00TIFF Normal [facility] Physician Orderon 07-04-2023 Physician Order [id number]#1.00TIFF Normal [facility] Patient Educationon 06-30-19 Patient Education [...] these instructions at home: Medicines ? Take gnoi-xqk-caouumu and prescription medicines only as told by [...] provider. Document Revised: 01/31/2021 Document Reviewed: 01/31/2021 [employer] Patient Education ? 2022 [employer] [facility] Urology Office/Clinic Noteon 06-30-2023 Urology Office/Clinic Note Chief Complaint f/u to Joshua [facility] Staff F/u to Joshua done 06/10/23. Dx: [...] [facility] [address], [place] [phone] Additional Instructions: 1 day for catheter removal [...] Use:. Cigarettes, (more content not included)... Normal [facility] Comment on above: Result Comment: Elec tronically Signed By: Katia JACOBS MD\.br\Date and Time Signed: 06/30/23 14:32 EST\.br\Electronically Co-Signed By: Apple Escoto\.br\Date and Time Co-Signed: 06/30/23 14:30 EST UroVysion Fish and Urine Cyt o ([facility]4 Labs)on 06-26-2023 UVFISH [facility] Revision Information Invalid Interpretation Code [facility] Comment on above: Result Comment: Brayan ection Reason -[ Fredi Stephen, 06/26/23 - 10:32 ] Corrected report issued to update PMS/PWS. The diagnosis remains unchanged. Correction Notes - Performed By: #### 1 [id number] ####[facility] [id number] [place] [address] Ambulatory Visit Summaryon 0 06-16-2023 Ambulatory Visit Summary ALEX ANDERSON :1945 Visit Date:06/16/2023 Ambulatory Visit Instructions Your Diagnosis BPH with urinary obstruction Your Care Team Attending Physician - Katia JACOBS MD Primary Care Physician - IDANIA CASILLAS, STANLEY Rich This Is Your Medications List acetaminophen-hydrocodone ([place] 325 mg-7.5 mg oral tablet) albuterol (Albuterol [...] Katia JACOBS MD Where: [facility] Normal [facility] Consent for Procedure/Surger yon 06-10-2023 Consent for Procedure/Surgery [id number]#1.00TIFF Normal [facility] Consent for Treatmenton 05-26 Consent for Treatment [id number]#1.00TIFF Normal [facility] IntraOperative Documentson 0 06-10-2023 IntraOperative Documents [id number]#1.00TIFF [facility] Main [place] Intraoperative Recor don 06-10-2023 Main OR Intraoperative Record IntraOp Document Type FTURO Summary Primary Physician: Katia JACOBS MD Finalized Date/Time: 06/10/23 15:18:46 Pt. Name: ANDERSONALEX/Sex: 1945 Male Med Rec #: [id number] Physician: Katia JACOBS MD Financial #: [id number] Pt. Type: O Room/Bed: / Admit/Disch: 06/10/23 12:50:19 - Institution: Case Times FTURO Entry 1 Patient Times In Room 06/10/23 14:32:00 Out Room 06/10/23 15:13:00 Procedure Times Start 06/10/23 14:40:00 Stop 06/10/23 15:07:00 Anesthesia Times Last Modified By: Clifford CHAN, KATEOR, Gayatri 06/10/23 15:07:12 Case Attendance FTURO Entry 1 Entry 2 Entry 3 Case Attendee Katia JACOBS MD RN, CNOR, Kathleen Lai Role Performed Surgeon - Primary Rocket Motor Mechanic - Primary Scrub - Primary Time In 06/10/23 14:32:00 06/10/23 14:32:00 06/10/23 14:32:00 Time Out 06/10/23 15:13:00 06/10/23 15:13:00 06/10/23 15:13:00 Procedure CYSTOSCOPY LOCAL CYSTOSCOPY LOCAL CYSTOSCOPY LOCAL REZUM(.) REZUM(.) REZUM(.) Daisy piña spouting installer in room orienting Last Modified By: Clifford CHAN, CNOR, Clifford RN, CNOR, Clifford RN, KATEOR, Gayatri 06/10/23 Gayatri 06/10/23 Gayatri 06/10/23 15:07:13 15:07:13 15:07:13 Surgical Procedures FTURO Entry 1 Procedure Description Procedure CYSTOSCOPY LOCAL REZU Modifiers . Surgeon Description cysto, REZUM treatment [...] JACOBS MD, Verified (If Participants Clifford CHAN, CNOR, [...] WOLFGANG Horton RN, Ruthann 06/10/23 15:18 Normal [facility] Main OR Preoperative Recordo n 06-10-2023 Main OR Preoperative Record Holding Area Document Type FTURO Summary Primary Physician: Katia JACOBS MD Finalized Date/Time: 06/10/23 14:49:26 Pt. Name: ALEX ANDERSON/Sex: 1945 Male Med Rec #: [id number] Physician: Katia JACOBS MD Financial #: [id number] Pt. Type: O Room/Bed: / Admit/Disch: 06/10/23 [...] GLASSES; BILATERAL Limitations: UP AD JOSIAH. PT [facility] [employer] [place] Comment: CATARACT LENS IMPLANTS Complaints of Pain: [...] WOLFGANG Horton RN, Ruthann 06/10/23 14:49 Normal [facility] Operative Reporton Operative Report Patient: MELISSA ANDERSON [...] in satisfactory condition, Discharge instructions are provided. [facility] Comment on above: Result [...] with antibiotic coverage, Follow up arranged. Normal [facility] Comment on above: Result Comment: Elec tronically Signed By: ARLENE CASILLAS, Katia Delgado\Date and Time Signed: 06/10/23 15:20 EST [facility] Fish and Urine Cyt o ([facility])on 06-10-2023 [facility] Method of Extraction Catheterized Normal [facility] Comment on above: Performed By: #### 1 [id number] ####[facility] [id number] [place] [address] [facility] Number of Jars 1 Invalid Interpretation Code [facility] Comment on above: Performed By: #### 1 [id number] ####[facility] [id number] [place] [address] [facility] Specimen Urine Normal [facility] Comment on above: Performed By: #### 1 [id number] ####[facility] [id number] [place] [address] [facility] Type of Service Technical Only Normal [facility] Comment on above: Performed By: #### 1 [id number] ####[facility] [id number] [place] [address] Alanine aminotransferase [En zymatic activity/volume] in Serum or PlasmaOrdered By: Celia Griffin on 04-08-2023 ALT [Catalytic activity/Vol] 17 U/L 7-[address] [facility] Albumin [Mass/volume] in Ser um or Plasma by Bromocresol green (BCG) dye binding methoOrdered By: Celia Griffin on 04-08-2023 Albumin BCG dye [Mass/Vol] 4.2 g/dL 3.5-5.[address] [facility] Alkaline phosphatase [Enzyma tic activity/volume] in Serum or PlasmaOrdered By: Celia Griffin on 04-08-2023 ALP [Catalytic activity/Vol] 72 U/L 34-[address] [facility] Aspartate aminotransferase [ Enzymatic activity/volume] in Serum or PlasmaOrdered By: Celia Griffin on 04-08-2023 AST [Catalytic activity/Vol] 16 U/L 13-[address] [facility] Automated erythrocytes count in urine sediment (number/area)Ordered By: Celia Griffin on 04-08-2023 RBC Auto (Urine sed) [#/Area] 3-4 [HPF] 0-[address] [facility] Automated leukocytes count i n urine sediment (number/area)Ordered By: Celia Griffin on 04-08-2023 WBC Auto (Urine sed) [#/Area] 50-100 [HPF] 0-[address] [facility] Bilirubin Test strip Ql (U)O rdered By: Celia Griffin on 04-08-2023 Bilirubin Ql (U) Negative Negative [facility] Bilirubin.total [Mass/volume ] in Serum or PlasmaOrdered By: Celia Griffin on 04-08-2023 Bilirubin [Mass/Vol] 0.5 mg/dL 0.3-1.0 [facility] Calcium [Mass/volume] in Ser um or PlasmaOrdered By: Celia Griffin on 04-08-2023 Calcium [Mass/Vol] 9.3 mg/dL 8.6-10.3 [facility] Carbon dioxide, total [Moles /volume] in Serum or PlasmaOrdered By: Celia Griffin on 04-08-2023 CO2 [Moles/Vol] 31.6 mmol/L 21.0-31.0 [facility] Chloride [Moles/volume] in S marium or PlasmaOrdered By: Celia Griffin on 04-08-2023 Chloride [Moles/Vol] 107 mmol/L 98-107 [facility] Cholesterol [Mass/volume] in Serum or PlasmaOrdered By: Teo Al on 04-08-2023 Cholesterol [Mass/Vol] 107 mg/dL 140-200 [facility] Comment on above: Chol less than 200 m g/dl low riskChol 201-239 mg/dl borderline riskChol 240 mg/dl and greater high risk Cholesterol in LDL Calc [Mas s/Vol]Ordered By: Teo Al on 04-08-2023 Cholesterol in LDL [Mass/Vol] 47 mg/dL 0-[address] [facility] Comment on above: LDL ATP III CLASSIFI CATIONLDL less than 100 mg/dL OptimalLDL 100-129 mg/dL Near or above optimalLDL 130-159 mg/dL Borderline highLDL 160-189 mg/dL HighLDL greater than 189 mg/dL Very high Cholesterol in VLDL Calc [Ma ss/Vol]Ordered By: Teo Al on 04-08-2023 Cholesterol in VLDL [Mass/Vol] 26 mg/dL [facility] Color Auto (U)Ordered By: Jonh Griffin on 04-08-2023 Color (U) Yellow Yellow [facility] Creatinine [Mass/volume] in Serum or PlasmaOrdered By: Celia Griffin on 04-08-2023 Creatinine [Mass/Vol] 1.41 mg/dL 0.70-1.30 [facility] Creatinine [Mass/volume] in UrineOrdered By: Celia Griffin on 04-08-2023 Creatinine (U) [Mass/Vol] 90.0 mg/dL 14.0-26.[address] [facility] Erythrocyte distribution wid th Auto (RBC) [Ratio]Ordered By: Celia Griffin on 04-08-2023 Erythrocyte distribution width (RBC) [Ratio] 15.7 % 12.0-14.[address] [facility] Ferritin [Mass/volume] in Se rum or PlasmaOrdered By: Celia Griffin on 04-08-2023 Ferritin [Mass/Vol] 34.1 ng/mL 23.9-336.2 [facility] Folate [Mass/volume] in Seru m or PlasmaOrdered By: Celia Griffin on 04-08-2023 Folate [Mass/Vol] 34.0 ng/mL >5.9 [facility] Comment on above: Folate reference ran ge: >5.9 ng/mlThe WHO technical consultation on folate and vitamin [id number] has determined that folate concentrations lessthan 4 ng/ml are considered deficient. Globulin Calc (S) [Mass/Vol] Ordered By: Celia Griffin on 04-08-2023 Globulin (S) [Mass/Vol] 2.8 g/dL [facility] Glucose [Mass/volume] in Ser um or [...] Hematocrit (Bld) [Volume fraction] 43.8 % 38.8-50.[address] [facility] Hemoglobin [Mass/volume] in BloodOrdered By: Celia Griffin on 04-08-2023 Hemoglobin (Bld) [Mass/Vol] 14.3 g/dL 13.0-17.[address] [facility] Iron [Mass/volume] in Serum or PlasmaOrdered By: Celia Griffin on 04-08-2023 Iron [Mass/Vol] 53 ug/dL 50-[address] [facility] Iron binding capacity [Mass/ volume] in Serum or PlasmaOrdered By: Celia Griffin on 04-08-2023 Iron binding capacity [Mass/Vol] 370 ug/dL 255-[address] [facility] Iron saturation [Mass Fracti on] in Serum or PlasmaOrdered By: Celia Griffin on 04-08-2023 Iron saturation [Mass fraction] 14.3 % 20-[address] [facility] Ketones Auto test strip (U) [Mass/Vol]Ordered By: Celia Griffin on 04-08-2023 Ketones (U) [Mass/Vol] Negative Negative [facility] - UrinalysisOrder ed By: Celia Griffin on 04-08-2023 Hyaline casts LM Ql (Urine sed) 9-19 [LPF] 0-[address] [facility] Leukocytes [#/volume] correc phil for nucleated erythrocytes in Blood by Automated counOrdered By: Celia Griffin on 04-08-2023 WBC corrected for nucl RBC Auto (Bld) [#/Vol] 8.4 10*3/uL 4.1-10.[address] [facility] MCH Auto (RBC) [Entitic mass ]Ordered By: Celia Griffin on 04-08-2023 MCH (RBC) [Entitic mass] 27.3 pg 27.5-35.[address] [facility] MCHC Auto (RBC) [Mass/Vol]Or dered By: Celia Griffin on 04-08-2023 MCHC (RBC) [Mass/Vol] 32.6 g/dL 32.5-35.6 [facility] MCV Auto (RBC) [Entitic vol] Ordered By: Celia Griffin on 04-08-2023 MCV (RBC) [Entitic vol] 83.8 fL 83.5-101 [facility] Magnesium [Mass/volume] in S marium or PlasmaOrdered By: Celia Griffin on 04-08-2023 Magnesium [Mass/Vol] 2.2 mg/dL 1.9-2.7 [facility] Nitrite Test strip Ql (U)Ord ered By: Celia Griffin on 04-08-2023 Nitrite Ql (U) Positive Negative [facility] No Panel InformationOrdered By: Celia Griffin on 04-08-2023 Estimated GFR (CKD-EPI) 50.692 mL/Min [facility] Creatinine Clearance (Chem N/A [facility] Parathyrin.intact [Mass/volu me] in Serum or PlasmaOrdered By: Celia Griffin on 04-08-2023 Parathyrin.intact [Mass/Vol] 76.6 pg/mL 12-[address] [facility] Phosphate [Mass/volume] in S marium or PlasmaOrdered By: Celia Griffin on 04-08-2023 Phosphate [Mass/Vol] 2.8 mg/dL 2.5-4.5 [facility] Platelet mean volume Auto (B ld) [Entitic vol]Ordered By: Celia Griffin on 04-08-2023 Platelet mean volume (Bld) [Entitic vol] 8.6 fL 6.6-10.[address] [facility] Platelets Auto (Bld) [#/Vol] Ordered By: Celia Griffin on 04-08-2023 Platelets (Bld) [#/Vol] 201 10*3/uL 150-[address] [facility] Potassium [Moles/volume] in Serum or PlasmaOrdered By: Celia Griffin on 04-08-2023 Potassium [Moles/Vol] 4.5 mmol/L 3.5-5.1 [facility] Protein Auto test strip (U) [Mass/Vol]Ordered By: Celia Griffin on 04-08-2023 Protein (U) [Mass/Vol] Trace mg/dL Negative [facility] Protein [Mass/volume] in Ser um or PlasmaOrdered By: Celia Griffin on 04-08-2023 Protein [Mass/Vol] 7.0 g/dL 6.4-8.9 [facility] Protein [Mass/volume] in Uri neOrdered By: Celia Griffin on 04-08-2023 Protein (U) [Mass/Vol] 30 mg/dL 0-9 [facility] RBC Auto (Bld) [#/Vol]Ordere d By: Celia Griffin on 04-08-2023 RBC (Bld) [#/Vol] 5.22 10*6/uL 3.90-5.60 [facility] Serum or plasma albumin/glob ulin mass ratioOrdered By: Celia Griffin on 04-08-2023 Albumin/Globulin [Mass ratio] 1.5 {ratio} [facility] Serum or plasma anion gap de terminationOrdered By: Celia Griffin on 04-08-2023 Anion gap [Moles/Vol] 8.9 mmol/L 6.0-15.0 [facility] Serum or plasma high density lipoprotein (HDL) cholesterol measurementOrdered By: Teo Al on 04-08-2023 Cholesterol in HDL [Mass/Vol] 34 mg/dL 23-[address] [facility] Comment on above: HDL CHOL ATP-III CLA SSIFICATION Cardiovascular RiskHDL > or equal to 60 mg/dL LOWHDL < 40 mg/dL HIGH Serum or plasma total choles terol/high density lipoprotein (HDL) cholesterol mass ratOrdered By: Teo Al on 04-08-2023 Cholesterol.total/Sonya sterol in HDL [Mass ratio] 3.1 {ratio} <5.[address] [facility] Sodium [Moles/volume] in Ser um or PlasmaOrdered By: Celia Griffin on 04-08-2023 Sodium [Moles/Vol] 143 mmol/L 136-145 [facility] Specific gravity Auto test s trip (U) [Rel density]Ordered By: Celia Griffin on 04-08-2023 Specific gravity (U) [Rel density] 1.017 1.001-1.[address] [facility] Squamous epithelial cells de tection in urine sediment by light microscopyOrdered By: Celia Griffin on 04-08-2023 Epithelial cells.squamous LM Ql (Urine sed) 0-1 [HPF] 0-[address] [facility] Transferrin [Mass/volume] in Serum or PlasmaOrdered By: Celia Griffin on 04-08-2023 Transferrin [Mass/Vol] 264 mg/dL 203-362 [facility] Triglyceride [Mass/volume] i n Serum or PlasmaOrdered By: Teo Al on 04-08-2023 Triglyceride [Mass/Vol] 131 mg/dL 0-149 [facility] Comment on above: TRIG ATP III CLASSIF ICATIONTRIG less than 150 mg/dL NormalTRIG 150-199 mg/dL Borderline highTRIG 200-500 mg/dL High TRIG greater than 500 mg/dL Very highStandard traceable to the Center for Disease Conrtrol and Prevention (CDC) test method. Urate [Mass/volume] in Serum or PlasmaOrdered By: Celia Griffin on 04-08-2023 Urate [Mass/Vol] 6.0 mg/dL 4.4-7.6 [facility] Urea nitrogen [Mass/volume] in Serum or PlasmaOrdered By: Celia Griffin on 04-08-2023 Urea nitrogen [Mass/Vol] 27 mg/dL 7-[address] [facility] Urine bacteria detection by automated methodOrdered By: Celia Griffin on 04-08-2023 Bacteria Auto Ql (U) 4+ None Seen [facility] Urine clarity by refractomet ry automatedOrdered By: Celia Griffin on 04-08-2023 Clarity Refractometry automated (U) Cloudy Clear [facility] Urine glucose measurement by automated test strip (mass/volume)Ordered By: Celia Griffin on 04-08-2023 Glucose Auto test strip (U) [Mass/Vol] Normal mg/dL Normal [facility] Urine hemoglobin detection b y automated test stripOrdered By: Celia Griffin on 04-08-2023 Hemoglobin Auto test strip Ql (U) 1+ Negative [facility] Urine leukocyte esterase det ection by automated test stripOrdered By: Celia Griffin on 04-08-2023 Leukocyte esterase Auto test strip Ql (U) 4+ Negative [facility] Urine protein/creatinine rat ioOrdered By: Celia Griffin on 04-08-2023 Protein/Creatinine (U) [Ratio] 333 mg/g{Cre} 0-[address] [facility] Urobilinogen Auto test strip (U) [Mass/Vol]Ordered By: Celia Griffin on 04-08-2023 Urobilinogen (U) [Mass/Vol] Normal mg/dL Normal [facility] Vitamin B12 ser/plasOrdered By: Celia Griffin on 04-08-2023 Cobalamin (Vitamin B12) [Mass/Vol] 301 pg/mL 180-[address] [facility] Vitamin D+Metabolites [Mass/ volume] in Serum or PlasmaOrdered By: Celia Griffin on 04-08-2023 Vitamin D+Metabolites [Mass/Vol] 37.5 ng/mL 30-[address] [facility] Comment on above: VITAMIN D STATUS 25( [place])VITAMIN D RANGE (ng/mL) Deficient <20 Insufficient 20 to <30Sufficient 30 to 100Reference: Sixto MF,Federico NC, Palomo LESLIE, et al. Evaluation,treatment, and prevention of vitamin D deficiency; an Endocrine Society clinical practice guideline. JCEM. 2010; 96(7):1911-30. pH Auto test strip (U)Ordere d By: Celia Griffin on 04-08-2023 pH (U) 7.0 [pH] 5.0-9.[address] [facility] Office Visit (Cardiology)on 01-22-2023 Follow-up visit Diagnoses/Problems [...] Lipid Panel; Status:Active - Retrospective Authorization; Requested for:[id number]; Overweight with body mass index (BMI) of [...] we can help. You may also call 3-471-HPSJNOW for free resources and assistance.; Status:Complete - [...] negative for complaint. Vitals Vital Signs Recorded: [id number] 09:57AM Heart Rate72, L Radial Mzgquwrw763, LUE, Sitting Oijxouywu69, LUE, Sitting Height6 ft 2 in Hurxzg752 lb BMI Gukgogyheg93.35 kg/m2 BSA Calculat (more content not included)... [facility] Tobacco Screening.on 023 Fall risk assessment a) No falls within the last year [facility] [employer] 250 DO Work Phone: Tobacco use status CPHS a) Yes M [facility] [employer] 250 DO Work Phone: Tobacco Screening. Yes -[facility] [employer] 250 DO Work Phone: CULTURE URINEon 09-18-2022 CULTURE URINE Isolate 1 Pseudomonas aeruginosa >100,000 cfu/mL of ORGANISM 1 Pseudomonas aeruginosa ANTIBIOTIC M.I.C RX STATUS Piperacillin/Tazobactam <=4 S F Ceftazidime <=1 S F Imipenem 2 S F Amikacin <=2 S F Gentamicin 2 S F Tobramycin <=1 S F Ciprofloxacin <=0.25 S F Levofloxacin <=0.12 S F Normal [facility] Comment on above: Performed By: #### U RTPCR #### [facility] [address] [place] [address] Dr. Karen Pierce CALCULI, URINARYon 3 2,8 Dihydroxyadenine Normal [facility] Comment on above: Performed By: #### U A #### [facility] [address] [place] [address] Dr. Karen Pierce Ammonium Acid Urate Normal [facility] Comment on above: Performed By: #### U A #### [facility] [address] [place] [address] Dr. Karne Pierce Bilirubin Ql (U) Normal [facility] Comment on above: Performed By: #### U A #### [facility] [address] [place] [address] Dr. Karen Pierce Ca Oxalate Dihydrate Normal [facility] Comment on above: Performed By: #### U A #### [facility] [address] [place] [address] Dr. Karen Pierce CaHPO4 (Brushite) [facility] Comment on above: Performed By: #### U A #### [facility] [address] [address] [address] Karen Pierce Calcium Bilirubinate Normal [facility] Comment on above: Performed By: #### U A #### [facility] [address] [address] [address] Karen Pierce Calcium Carbonate [facility] Comment on above: Performed By: #### U A #### [facility] [address] [address] [address] Karen Pierce Calcium Oxalate Monohydrate 100 % [facility] Comment on above: Performed By: #### U A #### [facility] [address] [address] [address] Karen Pierce Calcium Palmitate [facility] Comment on above: Performed By: #### U A #### [facility] [address] [address] [address] Karen Pierce Calcium Phosphate [facility] Comment on above: Performed By: #### U A #### [facility] [address] [address] [address] Karen Pierce Calcium Stearate [facility] Comment on above: Performed By: #### U A #### [facility] [address] [place] [address] Dr. Karen Pierce Carbonate Apatite [facility] Comment on above: Performed By: #### U A #### [facility] [address] [address] [address] Karen Pierce Cellular Material [facility] Comment on above: Performed By: #### U A #### [facility] [address] [address] [address] Karen Pierce Cholesterol [facility] Comment on above: Performed By: #### U A #### [facility] [address] [address] [address] Karen Pierce Color (U) Brown [facility] Comment on above: Performed By: #### U A #### [facility] [address] [address] [address] Karen Pierce Comment Normal [facility] Comment on above: Performed By: #### U A #### [facility] [address] [place] [address] Dr. Karen Pierce Comment: Comment Normal [facility] Comment on above: Result Comment: Hyacinth rhodes questions regarding Calculi Analysis [facility] at: [phone]. Performed By: #### U A #### [facility] [address] [address] [address] Karen Pierce Composition Comment [facility] Comment on above: Result Comment: Perc entage (Represents the % composition) Performed By: #### U A #### [facility] [address] [place] [address] Dr. Karen Pierce Cystine Normal [facility] Comment on above: Performed By: #### U A #### [facility] [address] [place] [address] Dr. Karen Pierce Disclaimer: Comment [facility] Comment on above: Result Comment: This test was developed and its performance characteristics determined by [facility]. It has not been cleared or approved by the Food and Drug Administration. Performed By: #### U A #### [facility] [address] [address] [address] Karen Pierce Dried Blood Normal [facility] Comment on above: Performed By: #### U A #### [facility] [address] [place] [address] Dr. Karen Pierce Drug or Metabolite Normal [facility] Comment on above: Performed By: #### U A #### [facility] [address] [address] [address] Karen Pierce Hydroxyapatite [facility] Comment on above: Performed By: #### U A #### [facility] [address] [place] [address] Dr. Karen Pierce Mg NH4 PO4 (Struvite) Normal [facility] Comment on above: Performed By: #### U A #### [facility] [address] [address] [address] Karen Pierce MgHPO4 ([facility]) [facility] Comment on above: Performed By: #### U A #### [facility] [address] [address] [address] Karen Pierce Other component(s) [facility] Comment on above: Performed By: #### U A #### [facility] [address] [address] [address] Karen Pierce PDF . Normal [facility] Comment on above: Performed By: #### U A #### [facility] [address] [address] [address] Karen Pierce Photo Comment [facility] Comment on above: Result Comment: Phot ograph will follow under a separate cover Performed By: #### U A #### [facility] [address] [place] [address] Dr. Karen Pierce Please note: Comment [facility] Comment on above: Result Comment: Calc shirley report will follow via computer, mail or executive search consultant delivery. Performed By: #### U A #### [facility] [address] [place] [address] Dr. Karen Pierce Size 5x5 [facility] Comment on above: Result Comment: Mult iple pieces received. Dimensions of the largest piece reported. Performed By: #### U A #### [facility] [address] [place] [address] Dr. Karen Pierce Sodium Acid Urate [facility] Comment on above: Performed By: #### U A #### [facility] [address] [place] [address] Dr. Karen Pierce Source Comment [facility] Comment on above: Result Comment: Urin evelin Bladder Performed By: #### U A #### [facility] [address] [place] [address] Dr. Karen Pierce Triamterene [facility] Comment on above: Performed By: #### U A #### [facility] [address] [place] [address] Dr. Karen Pierce Uric Acid Normal [facility] Comment on above: Performed By: #### U A #### [facility] [address] [place] [address] Dr. Karen Pierce Uric Acid Dihydrate Normal [facility] Comment on above: Performed By: #### U A #### [facility] [address] [place] [address] Dr. Karen Pierce Weight 158 mg Normal [facility] Comment on above: Performed By: #### U A #### [facility] [address] [address] [address] Karen Pierce Xanthine [facility] Comment on above: Performed By: #### U A #### [facility] [address] [place] [address] Dr. Karen Pierce ER URINE PROFILEon 3 Bilirubin Ql (U) Negative Normal NEGATIVE [facility] Comment on above: Performed By: #### U MICRO, ERUR #### [facility] [address] [place] [address] Dr. Karen Pierce Clarity (U) CLEAR Normal CLEAR [facility] Comment on above: Performed By: #### U MICRO, ERUR #### [facility] [address] [place] [address] Dr. Karen Pierce Color (U) YELLOW Normal YELLOW [facility] Comment on above: Performed By: #### U MICRO, ERUR #### [facility] [address] [place] [address] Dr. Karen Pierce ERUAHD A micrscopic examina tion will be performed if indicated. Normal [facility] Comment on above: Performed By: #### U MICRO, ERUR #### [facility] [address] [address] [address] Karen Pierce Glucose Ql (U) Negative Normal NEGATIVE [facility] Comment on above: Performed By: #### U MICRO, ERUR #### [facility] [address] [place] [address] Dr. Karen Pierce Hemoglobin Ql (U) LARGE Abnormal NEGATIVE [facility] Comment on above: Performed By: #### U MICRO, ERUR #### [facility] [address] [place] [address] Dr. Karen Pierce Ketones Ql (U) Negative Normal NEGATIVE [facility] Comment on above: Performed By: #### U MICRO, ERUR #### [facility] [address] [place] [address] Dr. Karen Pierce LEUKOCYTES LARGE Abnormal NEGATIVE [facility] Comment on above: Performed By: #### U MICRO, ERUR #### [facility] [address] [place] [address] Dr. Karen Pierce Nitrite Ql (U) Positive Abnormal NEGATIVE [facility] Comment on above: Performed By: #### U MICRO, ERUR #### [facility] [address] [place] [address] Dr. Karen Pierce pH (U) 5.5 [pH] Normal 5-9 [facility] Comment on above: Performed By: #### U MICRO, ERUR #### [facility] [address] [place] [address] Dr. Karen Pierce Protein (U) [Mass/Vol] 100 mg/dL Abnormal NEGAT RAJI/ TRACE [facility] Comment on above: Performed By: #### U MICRO, ERUR #### [facility] [address] [place] [address] Dr. Karen Pierce SPEC GRAVITY 1.020 Normal 1.005-<=1. 025 [facility] Comment on above: Performed By: #### U MICRO, ERUR #### [facility] [address] [place] [address] Dr. Karen Pierce UR MICRO IND INDICATED Normal [facility] Comment on above: Performed By: #### U MICRO, ERUR #### [facility] [address] [place] [address] Dr. Karen Pierce Urobilinogen Qn (U) 1.0 {Tonio'U}/dL Normal 0.2 - 1. 0 [facility] Comment on above: Performed By: #### U MICRO, ERUR #### [facility] [address] [place] [address] Dr. Karen Pierce URINE MICROSCOPIC ONLYon BACTERIA SMALL Abnormal NONE SEEN [facility] Comment on above: Performed By: #### U MICRO, ERUR #### [facility] [address] [place] [address] Dr. Karen Pierce Bacteria identified Cx Nom (U) INDICATED Normal [facility] Comment on above: Performed By: #### U MICRO, ERUR #### [facility] [address] [place] [address] Dr. Karen Pierce CAST NONE SEEN Normal NONE SEEN [facility] Comment on above: Performed By: #### U MICRO, ERUR #### [facility] [address] [place] [address] Dr. Karen Pierce Crystals LM Nom (Urine sed) NONE SEEN Normal NONE SEEN [facility] Comment on above: Performed By: #### U MICRO, ERUR #### [facility] [address] [place] [address] Dr. Karen Pierce Epithelial cells LM Ql (Urine sed) NONE SEEN Normal NONE SEEN /RARE [facility] Comment on above: Performed By: #### U MICRO, ERUR #### [facility] [address] [place] [address] Dr. Karen Pierce MUCOUS NONE SEEN Normal NONE SEEN [facility] Comment on above: Performed By: #### U MICRO, ERUR #### [facility] [address] [place] [address] Dr. Karen Pierce RBC (U) [#/Vol] /uL Abnormal 0-2 [facility] Comment on above: Performed By: #### U MICRO, ERUR #### [facility] [address] [place] [address] Dr. Karen Pierce WBC 50-75 Abnormal NONE SEEN [facility] Comment on above: Performed By: #### U MICRO, ERUR #### [facility] [address] [place] [address] Dr. Karen Pierce PTH INTACTon 09-05-2022 PTH, Intact 38 pg/mL Normal 15-65 [facility] Comment on above: Performed By: #### P THINT #### [facility] [address] [place] [address] Dr. Karen Pierce FERRITINon 09-04-2022 Ferritin [Mass/Vol] 49.0 ng/mL Normal 26.0-388.0 [facility] Comment on above: Performed By: #### U RTPCR #### [facility] [address] [place] [address] Dr. Karen Pierce IRON AND TIBCon 09-04-2022 % SATURATION 10.3 % Normal [facility] Comment on above: Performed By: #### U RTPCR #### [facility] [address] [place] [address] Dr. Karen Pierce Iron [Mass/Vol] 33.0 ug/dL Critically low 65.0-175.0 [facility] Comment on above: Performed By: #### U RTPCR #### [facility] [address] [place] [address] Dr. Karen Pierce TIBC DIRECT 319.0 ug/dL Normal 250.0-450. 0 [facility] Comment on above: Performed By: #### U RTPCR #### [facility] [address] [place] [address] Dr. Karen Pierce UA RANDOMon 09-04-2022 Bilirubin Ql (U) Negative Normal NEGATIVE [facility] Comment on above: Performed By: #### U A #### [facility] [address] [place] [address] Dr. Karen Pierce Clarity (U) CLEAR Normal CLEAR [facility] Comment on above: Performed By: #### U A #### [facility] [address] [place] [address] Dr. Karen Pierce Color (U) LT. YELLOW Normal YELLOW [facility] Comment on above: Performed By: #### U A #### [facility] [address] [place] [address] Dr. Karen Pierce Glucose Ql (U) Negative Normal NEGATIVE [facility] Comment on above: Performed By: #### U A #### [facility] [address] [place] [address] Dr. Karen Pierce Hemoglobin Ql (U) MODERATE Abnormal NEGATIVE [facility] Comment on above: Performed By: #### U A #### [facility] [address] [place] [address] Dr. Karen Pierce Ketones Ql (U) Negative Normal NEGATIVE [facility] Comment on above: Performed By: #### U A #### [facility] [address] [place] [address] Dr. Karen Pierce LEUKOCYTES LARGE Abnormal NEGATIVE [facility] Comment on above: Performed By: #### U A #### [facility] [address] [place] [address] Dr. Karen Pierce Nitrite Ql (U) Positive Abnormal NEGATIVE [facility] Comment on above: Performed By: #### U A #### [facility] [address] [place] [address] Dr. Karen Pierce pH (U) 6.5 [pH] Normal 5-9 [facility] Comment on above: Performed By: #### U A #### [facility] [address] [place] [address] Dr. Karen Pierce SPEC GRAVITY 1.015 Normal 1.005-<=1. 025 [facility] Comment on above: Performed By: #### U A #### [facility] [address] [place] [address] Dr. Karen Pierce UA PROTEIN 30 mg/dl Abnormal NEGATIVE/ TRACE [facility] Comment on above: Performed By: #### U A #### [facility] [address] [place] [address] Dr. Karen Pierce Urobilinogen Qn (U) 0.2 {Tonio'U}/dL Normal 0.2 - 1. 0 [facility] Comment on above: Performed By: #### U A #### [facility] [address] [place] [address] Dr. Karen Pierce URINE T PROTEIN CREAT RATIOo n 09-04-2022 Protein (U) [Mass/Vol] 65.2 mg/dL Critically high <=12.0 [facility] Comment on above: Performed By: #### U RTPCR #### [facility] [address] [place] [address] Dr. Karen Pierce UR PROT CREAT RAT 0.76 Normal [facility] Comment on above: Performed By: #### U RTPCR #### [facility] [address] [place] [address] Dr. Karen Pierce URINE CREAT 85.95 mg/dL Normal 20.00-300. 00 [facility] Comment on above: Performed By: #### U RTPCR #### [facility] [address] [place] [address] Dr. Karen Pierce VIT B12 AND FOLATEon 023 Cobalamin (Vitamin B12) [Mass/Vol] 279.0 pg/mL Normal 193.0-986. 0 [facility] Comment on above: Performed By: #### U RTPCR #### [facility] [address] [place] [address] Dr. Karen Pierce FOLATE 17.80 ng/mL Normal 8.60-58.90 [facility] Comment on above: Performed By: #### U RTPCR #### [facility] [address] [place] [address] Dr. Karen Pierce VITAMIN D 25 OHon 09-04-2022 VIT D 25-OH 29.9 ng/mL Normal [facility] Comment on above: Performed By: #### U RTPCR #### [facility] [address] [place] [address] Dr. Karen Pierce VIT D RANGES SEE BELOW Normal [facility] Comment on above: Result Comment: <20 ng/mL Vit D deficient 20 - <30 ng/mL Vit D insufficient 30 - 100 ng/mL Vit D sufficient >100 ng/mL Potential Toxicity Performed By: #### U RTPCR #### [facility] [address] [place] [address] Dr. Karen Pierce CBC AUTO DIFFon 09-02-2022 BASO # 0.1 103/ul Normal 0.0-0.1 [facility] Comment on above: Performed By: #### C BC #### [facility] [address] [place] [address] Dr. Karen Pierce Basophils/100 WBC (Bld) 0.7 % Normal 0.2-2.0 [facility] Comment on above: Performed By: #### C BC #### [facility] [address] [place] [address] Dr. Karen Pierce EO # 0.2 103/ul Normal 0.0-0.7 [facility] Comment on above: Performed By: #### C BC #### [facility] [address] [place] [address] Dr. Karen Pierce Eosinophils/100 WBC (Bld) 2.6 % Normal 0.9-7.0 [facility] Comment on above: Performed By: #### C BC #### [facility] [address] [place] [address] Dr. Karen Pierce Erythrocyte distribution width (RBC) [Ratio] 13.8 % Normal 11.0-15.0 [facility] Comment on above: Performed By: #### C BC #### [facility] [address] [place] [address] Dr. Karen Pierce Hematocrit (Bld) [Volume fraction] 38.9 % Critically low 42.0-54.0 [facility] Comment on above: Performed By: #### C BC #### [facility] [address] [place] [address] Dr. Karen Pierce Hemoglobin (Bld) [Mass/Vol] 12.3 g/dL Critically low 14.0-18.0 [facility] Comment on above: Performed By: #### C BC #### [facility] [address] [place] [address] Dr. Karen Pierce IG # 0.01 10e3/ul Normal 0.00-0.03 [facility] Comment on above: Performed By: #### C BC #### [facility] [address] [place] [address] Dr. Karen Pierce IG % 0.1 % Normal 0.0-0.5 [facility] Comment on above: Performed By: #### C BC #### [facility] [address] [place] [address] Dr. Karen Pierce LYMPH # 1.9 103/ul Normal 1.2-3.8 [facility] Comment on above: Performed By: #### C BC #### [facility] [address] [place] [address] Dr. Karen Pierce Lymphocytes/100 WBC (Bld) 27.0 % Normal 20.5-60.0 [facility] Comment on above: Performed By: #### C BC #### [facility] [address] [place] [address] Dr. Karen Pierce MANUAL DIFF REQ NO Normal [facility] Comment on above: Performed By: #### C BC #### [facility] [address] [place] [address] Dr. Karen Pierce MCH (RBC) [Entitic mass] 27.8 pg Normal 25.9-34.0 [facility] Comment on above: Performed By: #### C BC #### [facility] [address] [place] [address] Dr. Karen Pierce MCHC (RBC) [Mass/Vol] 31.6 g/dL Normal 29.9-35.2 [facility] Comment on above: Performed By: #### C BC #### [facility] [address] [place] [address] Dr. Karen Pierce MCV (RBC) [Entitic vol] 87.8 fL Normal 80.0-94.0 [facility] Comment on above: Performed By: #### C BC #### [facility] [address] [place] [address] Dr. Karen Pierce MONO # 0.6 103/ul Normal 0.3-0.8 [facility] Comment on above: Performed By: #### C BC #### [facility] [address] [place] [address] Dr. Karen Pierce Monocytes/100 WBC (Bld) 8.8 % Normal 1.7-12.0 [facility] Comment on above: Performed By: #### C BC #### [facility] [address] [place] [address] Dr. Karen Pierce NEUT # 4.4 103/ul Normal 1.4-6.5 [facility] Comment on above: Performed By: #### C BC #### [facility] [address] [address] [address] Karen Pierce Neutrophils/100 WBC (Bld) 60.8 % Normal 43.0-75.0 [facility] Comment on above: Performed By: #### C BC #### [facility] [address] [address] [address] Karen Pierce Platelet mean volume (Bld) [Entitic vol] 9.9 fL Normal 9.5-13.5 [facility] Comment on above: Performed By: #### C BC #### [facility] [address] [place] [address] Dr. Karen Pierce PLT 181 103/ul Normal 150-450 [facility] Comment on above: Performed By: #### C BC #### [facility] [address] [place] [address] Dr. Karen Pierce RBC 4.43 106/ul Critically low 4.70-6.10 [facility] Comment on above: Performed By: #### C BC #### [facility] [address] [place] [address] Dr. Karen Pierce WBC 7.2 103/ul Normal 4.0-11.0 [facility] Comment on above: Performed By: #### C BC #### [facility] [address] [place] [address] Dr. Karen Pierce MAGNESIUMon 09-02-2022 Magnesium [Mass/Vol] 2.2 mg/dL Normal 1.8-2.4 [facility] Comment on above: Performed By: #### U A #### [facility] [address] [place] [address] Dr. Karen Pierce PHOSPHORUSon 09-02-2022 Phosphate [Mass/Vol] 2.9 mg/dL Normal 2.6-4.7 [facility] Comment on above: Performed By: #### U A #### [facility] [address] [place] [address] Dr. Karen Pierce PROF 14(COMP METB)on 04-10-2 023 Albumin [Mass/Vol] 3.5 g/dL Normal 3.4-5.0 [facility] Comment on above: Performed By: #### P THINT #### [facility] [address] [place] [address] Dr. Karen Pierce Albumin/Globulin [Mass ratio] 1.0 {ratio} Normal [facility] Comment on above: Performed By: #### P THINT #### [facility] [address] [place] [address] Dr. Karen Pierce ALP [Catalytic activity/Vol] 86 U/L Normal 46-116 [facility] Comment on above: Performed By: #### P THINT #### [facility] [address] [place] [address] Dr. Karen Pierce ALT [Catalytic activity/Vol] 17 U/L Normal 16-63 [facility] Comment on above: Performed By: #### P THINT #### [facility] [address] [place] [address] Dr. Karen Pierce Anion gap [Moles/Vol] 13.0 mmol/L Normal [facility] Comment on above: Performed By: #### P THINT #### [facility] [address] [place] [address] Dr. Karen Pierce AST [Catalytic activity/Vol] 14 U/L Critically low 15-37 [facility] Comment on above: Performed By: #### P THINT #### [facility] [address] [place] [address] Dr. Karen Pierce Bilirubin [Mass/Vol] 0.3 mg/dL Normal 0.2-1.0 [facility] Comment on above: Performed By: #### P THINT #### [facility] [address] [place] [address] Dr. Karen Pierce CO2 [Moles/Vol] 27.6 mmol/L Normal 21.0-32.0 [facility] Comment on above: Performed By: #### P THINT #### [facility] [address] [place] [address] Dr. Karen Pierce Creatinine [Mass/Vol] 1.48 mg/dL Critically high 0.70-1.30 [facility] Comment on above: Performed By: #### P THINT #### [facility] [address] [address] [address] Karen Pierce EGFR-AF CYMRO 56 mL/min/1.73m2 Critically low >=60 [facility] Comment on above: Performed By: #### P THINT #### [facility] [address] [address] [address] Karen Pierce EGFR-NON AF CYMRO 46 mL/min/1.73m2 Critically low >=60 [facility] Comment on above: Performed By: #### P THINT #### [facility] [address] [address] [address] Karen Pierce Globulin (S) [Mass/Vol] 3.6 g/dL Normal T [facility] Comment on above: Performed By: #### P THINT #### [facility] [address] [place] [address] Dr. Karen Pierce Glucose [Mass/Vol] 105 mg/dL Normal 74-106 [facility] Comment on above: Performed By: #### P THINT #### [facility] [address] [address] [address] Karen Pierce Protein [Mass/Vol] 7.1 g/dL Normal 6.4-8.2 [facility] Comment on above: Performed By: #### P THINT #### [facility] [address] [place] [address] Dr. Karen Pierce Sodium [Moles/Vol] 142 mmol/L Normal 136-145 [facility] Comment on above: Performed By: #### P THINT #### [facility] [address] [address] [address] Karen Pierce Urea nitrogen/Creatinine [Mass ratio] 16.2 mg/mg Normal [facility] Comment on above: Performed By: #### P THINT #### [facility] [address] [place] [address] Dr. Karen Pierce PROF CHEM 8 (BAS METB)on Anion gap [Moles/Vol] 11.1 mmol/L Normal Th e [facility] Comment on above: Performed By: #### U A #### [facility] [address] [place] [address] Dr. Karen Pierce Calcium [Mass/Vol] 8.7 mg/dL Normal 8.5-10.1 [facility] Comment on above: Performed By: #### U A #### [facility] [address] [place] [address] Dr. Karen Pierce Performed By: #### P THINT #### [facility] [address] [place] [address] Dr. Karen Pierce Chloride [Moles/Vol] 106 mmol/L Normal 98-107 [facility] Comment on above: Performed By: #### U A #### [facility] [address] [place] [address] Dr. Karen Pierce Performed By: #### P THINT #### [facility] [address] [place] [address] Dr. Karen Pierce CO2 [Moles/Vol] 28.5 mmol/L Normal 21.0-32.0 [facility] Comment on above: Performed By: #### U A #### [facility] [address] [place] [address] Dr. Karen Pierce Creatinine [Mass/Vol] 1.44 mg/dL Critically high 0.70-1.30 [facility] Comment on above: Performed By: #### U A #### [facility] [address] [place] [address] Dr. Karen Pierce EGFR-AF CYMRO 58 mL/min/1.73m2 Critically low >=60 [facility] Comment on above: Performed By: #### U A #### [facility] [address] [place] [address] Dr. Karen Pierce EGFR-NON AF CYMRO 47 mL/min/1.73m2 Critically low >=60 [facility] Comment on above: Performed By: #### U A #### [facility] [address] [place] [address] Dr. Karen Pierce Glucose [Mass/Vol] 104 mg/dL Normal 74-106 [facility] Comment on above: Performed By: #### U A #### [facility] [address] [place] [address] Dr. Karen Pierce Potassium [Moles/Vol] 4.6 mmol/L Normal 3.5-5.1 [facility] Comment on above: Performed By: #### U A #### [facility] [address] [place] [address] Dr. Karen Pierce Performed By: #### P THINT #### [facility] [address] [place] [address] Dr. Karen Pierce Sodium [Moles/Vol] 141 mmol/L Normal 136-145 [facility] Comment on above: Performed By: #### U A #### [facility] [address] [place] [address] Dr. Karen Pierce Urea nitrogen [Mass/Vol] 24.0 mg/dL Critically high 7.0-18.0 [facility] Comment on above: Performed By: #### U A #### [facility] [address] [place] [address] Dr. Karen Pierce Performed By: #### P THINT #### [facility] [address] [place] [address] Dr. Karen Pierce Urea nitrogen/Creatinine [Mass ratio] 16.7 mg/mg Normal [facility] Comment on above: Performed By: #### U A #### [facility] [address] [place] [address] Dr. Karen Pierce PROTIMEon 09-02-2022 INR Coag (PPP) [Relative time] 1.01 {INR} Normal [facility] Comment on above: Performed By: #### P TT, PT #### [facility] [facility] [address] [place] [address] Dr. Karen Pierce INR GUIDELINES SEE BELOW Normal [facility] Comment on above: Result Comment: EMY RED INR: 2.0 - 3.0 CONDITIONS NOT LISTED BELOW 2.5 - 3.5 FOR PROSTHETIC HEART VALVE REPLACEMENT 2.5 - 3.5 RECURRENT THROMBOSIS Performed By: #### P TT, PT #### [facility] [address] [address] [address] Karen Pierce PT Coag (PPP) [Time] 10.7 s Normal 9.0-11.6 [facility] Comment on above: Performed By: #### P TT, PT #### [facility] [address] [address] [address] Karen Pierce PTTon 09-02-2022 aPTT Coag (Bld) [Time] 28.2 s Normal 22.3-36.2 [facility] Comment on above: Performed By: #### P TT, PT #### [facility] [address] [address] [address] Karen Pierce URIC ACID SERUMon 09-02-2022 Urate [Mass/Vol] 4.8 mg/dL Normal 3.5-7.2 [facility] Comment on above: Performed By: #### P THINT #### [facility] [address] [address] [address] Karen Pierce Creatinine (Bld) [Mass/Vol]O rdered By: Margarito Valentine on 08-16-2022 Creatinine [Mass/Vol] 1.5 mg/dL 0.6-1.3 [facility] Comment on above: ER/ESD physician is notified/shown all ISTAT results.Critical values may be confirmed by laboratory testing ifdeemed necessary by ER attending doctor. Creatinine (Bld) [Mass/Vol]O rdered By: Heather Omalley on 07-24-2022 Creatinine [Mass/Vol] 1.6 mg/dL 0.6-1.3 [facility] Comment on above: ER/ESD physician is notified/shown all ISTAT results.Critical values may be confirmed by laboratory testing ifdeemed necessary by ER attending doctor. No Panel InformationOrdered By: Heather Omalley on 07-24-2022 POC Estimated GFR [address] [facility] Comment on above: GFR estimated refere nce range: According to KDOQI guidelines, <60 ml/min/1.73m2 is sufficient to diagnose a patient with chronic kidney disease. POC Estimated GFR Non- Amer [address] [facility] Blood activated clotting lacho e by coagulation assayOrdered By: Margarito Valentine on 07-02-2022 ACT Coag (Bld) 215 s 90-[address] [facility] Comment on above: Reference Range: 90- 139 (Non-heparinized) Basophils Auto (Bld) [#/Vol] Ordered By: Margarito Valentine on 06-21-2022 Basophils (Bld) [#/Vol] 0.1 10*3/uL 0.0-0.[address] [facility] Basophils/100 WBC Auto (Bld) Ordered By: Margarito Valentine on 06-21-2022 Basophils/100 WBC (Bld) 0.9 % . [facility] Creatinine and Glomerular fi ltration rate.predicted panel (S/P/Bld)Ordered By: Margarito Valentine on 06-21-2022 Creatinine [Mass/Vol] 1.24 mg/dL 0.64-1.27 [facility] Eosinophils Auto (Bld) [#/Vo l]Ordered By: Margarito Valentine on 06-21-2022 Eosinophils (Bld) [#/Vol] 0.2 10*3/uL 0.0-0.[address] [facility] Eosinophils/100 WBC Auto (Bl d)Ordered By: Margarito Valentine on 06-21-2022 Eosinophils/100 WBC (Bld) 2.5 % . [facility] Erythrocyte distribution wid th Auto (RBC) [Ratio]Ordered By: Margarito Valentine on 06-21-2022 Erythrocyte distribution width (RBC) [Ratio] 18.0 % 12.0-14.[address] [facility] Estimated glomerular filtrat ion rate (GFR) non- AmericanOrdered By: Margarito Valentine on 06-21-2022 GFR/1.73 sq M.predicted among non-blacks MDRD (S/P/Bld) [Vol rate/Area] 56 mL/Min [facility] Hematocrit Auto (Bld) [Volum e fraction]Ordered By: Margarito Valentine on 06-21-2022 Hematocrit (Bld) [Volume fraction] 37.7 % 38.8-50.[address] [facility] Hemoglobin [Mass/volume] in BloodOrdered By: Margarito Valentine on 06-21-2022 Hemoglobin (Bld) [Mass/Vol] 12.3 g/dL 13.0-17.[address] [facility] Leukocytes [#/volume] correc phil for nucleated erythrocytes in Blood by Automated counOrdered By: Margarito Valentine on 06-21-2022 WBC corrected for nucl RBC Auto (Bld) [#/Vol] 7.1 10*3/uL 4.1-10.[address] [facility] Lymphocytes Auto (Bld) [#/Vo l]Ordered By: Margarito Valentine on 06-21-2022 Lymphocytes (Bld) [#/Vol] 1.3 10*3/uL 1.00-4.[address] [facility] Lymphocytes/100 WBC Auto (Bl d)Ordered By: Margarito Valentine on 06-21-2022 Lymphocytes/100 WBC (Bld) 18.7 % . [facility] MCH Auto (RBC) [Entitic mass ]Ordered By: Margarito Valentine on 06-21-2022 MCH (RBC) [Entitic mass] 28.2 pg 27.5-35.[address] [facility] MCHC Auto (RBC) [Mass/Vol]Or dered By: Margarito Valentine on 06-21-2022 MCHC (RBC) [Mass/Vol] 32.6 g/dL 32.5-35.6 [facility] MCV Auto (RBC) [Entitic vol] Ordered By: Margarito Valentine on 06-21-2022 MCV (RBC) [Entitic vol] 86.5 fL 83.5-101 [facility] Monocytes Auto (Bld) [#/Vol] Ordered By: Margarito Valentine on 06-21-2022 Monocytes (Bld) [#/Vol] 0.7 10*3/uL 0.0-0.[address] [facility] Monocytes/100 WBC Auto (Bld) Ordered By: Margarito Valentine on 06-21-2022 Monocytes/100 WBC (Bld) 10.3 % . [facility] Neutrophils Auto (Bld) [#/Vo l]Ordered By: Margarito Valentine on 06-21-2022 Neutrophils (Bld) [#/Vol] 4.8 10*3/uL 1.8-7.[address] [facility] Neutrophils/100 WBC Auto (Bl d)Ordered By: Margarito Valentine on 06-21-2022 Neutrophils/100 WBC (Bld) 67.6 % . [facility] No Panel InformationOrdered By: Margarito Valentine on 06-21-2022 Estimated GFR () > 60 mL/Min [facility] Comment on above: GFR estimated refere nce range: According to KDOQI guidelines, <60 ml/min/1.73m2 is sufficient to diagnose a patient with chronic kidney disease. Pharmacy Creatinine Clearance (Chem N/A [facility] Nucleated erythrocytes [Pres ence] in Blood by Automated countOrdered By: Margarito Valentine on 06-21-2022 Nucleated RBC Auto Ql (Bld) 0.1 /100{WBC} 0-0.[address] [facility] Platelet mean volume Auto (B ld) [Entitic vol]Ordered By: Margarito Valentine on 06-21-2022 Platelet mean volume (Bld) [Entitic vol] 8.2 fL 6.6-10.[address] [facility] Platelets Auto (Bld) [#/Vol] Ordered By: Margarito Valentine on 06-21-2022 Platelets (Bld) [#/Vol] 149 10*3/uL 150-[address] [facility] RBC Auto (Bld) [#/Vol]Ordere d By: Margarito Valentine on 06-21-2022 RBC (Bld) [#/Vol] 4.36 10*6/uL 3.90-5.60 [facility] Serum or plasma anion gap de terminationOrdered By: Margarito Valentine on 06-21-2022 Anion gap [Moles/Vol] 10.8 mmol/L 6.0-15.0 [facility] Serum or plasma calcium elan urement (mass/volume)Ordered By: Margarito Valentine on 06-21-2022 Calcium [Mass/Vol] 8.8 mg/dL 8.2-10.2 [facility] Serum or plasma chloride herb surement (moles/volume)Ordered By: Margarito Valentine on 06-21-2022 Chloride [Moles/Vol] 107 mmol/L 95-114 [facility] Serum or plasma glucose elan urement [...] on 06-21-2022 Potassium [Moles/Vol] 4.2 mmol/L 3.5-5.1 [facility] Serum or plasma sodium measu rement (moles/volume)Ordered By: Margarito Valentine on 06-21-2022 Sodium [Moles/Vol] 138 mmol/L 136-146 [facility] Serum or plasma total carbon dioxide measurement (moles/volume)Ordered By: Margarito Valentine on 06-21-2022 CO2 [Moles/Vol] 24.4 mmol/L 22.0-30.0 [facility] Serum or plasma urea nitroge n measurement (mass/volume)Ordered By: Margarito Valentine on 06-21-2022 Urea nitrogen [Mass/Vol] 18 mg/dL 02-[address] [facility] WBC Auto (Bld) [#/Vol]Ordere d [...] Complaint ALEX ANDERSON is being [facility]. 76-year-old white [...] Signs Recorded: 03Jun2022 03:38PM Heart Rate71, Apical Jmlcmftn261, LUE, Sitting Rjrdqxbhc87, LUE, Sitting Height6 ft 2 in Znazwt201 lb BMI Vydjngclhr30.45 kg/m2 BSA Calculated2.2 Tobacco Useb) No PHQ-2 [...] , regular (more content not included)... Normal [employer] Tobacco Screening.on 023 Adult depression screening assessment No [facility] Heart-Sandu sushil 250 DO Work Phone: Fall risk assessment a) No falls within the last year MP-[facility]erged With [facility]-Sandu sushil 250 DO Work Phone: Tobacco use status [facility] b) No M P-Merged With [facility]-[place] sushil 250 DO Work Phone: Basophils Auto (Bld) [#/Vol] Ordered By: Bernabe Cr on 05-22-2022 Basophils (Bld) [#/Vol] 0.1 10*3/uL 0.0-0.[address] [facility] Basophils/100 WBC Auto (Bld) Ordered By: Bernabe Cr on 05-22-2022 Basophils/100 WBC (Bld) 1.2 % . [facility] Creatinine and Glomerular fi ltration rate.predicted panel (S/P/Bld)Ordered By: Bernabe Cr on 05-22-2022 Creatinine [Mass/Vol] 1.78 mg/dL 0.64-1.27 [facility] Eosinophils Auto (Bld) [#/Vo l]Ordered By: Bernabe Cr on 05-22-2022 Eosinophils (Bld) [#/Vol] 0.3 10*3/uL 0.0-0.[address] [facility] Eosinophils/100 WBC Auto (Bl d)Ordered By: Bernabe Cr on 05-22-2022 Eosinophils/100 WBC (Bld) 3.6 % . [facility] Erythrocyte distribution wid th Auto (RBC) [Ratio]Ordered By: Bernabe Cr on 05-22-2022 Erythrocyte distribution width (RBC) [Ratio] 15.3 % 12.0-14.[address] [facility] Estimated glomerular filtrat ion rate (GFR) non- AmericanOrdered By: Bernabe Cr on 05-22-2022 GFR/1.73 sq M.predicted among non-blacks MDRD (S/P/Bld) [Vol rate/Area] 37 mL/Min [facility] Hematocrit Auto (Bld) [Volum e fraction]Ordered By: Bernabe Cr on 05-22-2022 Hematocrit (Bld) [Volume fraction] 36.2 % 38.8-50.[address] [facility] Hemoglobin [Mass/volume] in BloodOrdered By: Bernabe Cr on 05-22-2022 Hemoglobin (Bld) [Mass/Vol] 11.7 g/dL 13.0-17.[address] [facility] Leukocytes [#/volume] correc phil for nucleated erythrocytes in Blood by Automated counOrdered By: Bernabe Cr on 05-22-2022 WBC corrected for nucl RBC Auto (Bld) [#/Vol] 8.1 10*3/uL 4.1-10.[address] [facility] Lymphocytes Auto (Bld) [#/Vo l]Ordered By: Bernabe Cr on 05-22-2022 Lymphocytes (Bld) [#/Vol] 1.4 10*3/uL 1.00-4.[address] [facility] Lymphocytes/100 WBC Auto (Bl d)Ordered By: Bernabe Cr on 05-22-2022 Lymphocytes/100 WBC (Bld) 16.9 % . [facility] MCH Auto (RBC) [Entitic mass ]Ordered By: Bernabe Cr on 05-22-2022 MCH (RBC) [Entitic mass] 27.4 pg 27.5-35.[address] [facility] MCHC Auto (RBC) [Mass/Vol]Or dered By: Bernabe Cr on 05-22-2022 MCHC (RBC) [Mass/Vol] 32.5 g/dL 32.5-35.6 [facility] MCV Auto (RBC) [Entitic vol] Ordered By: Bernabe Cr on 05-22-2022 MCV (RBC) [Entitic vol] 84.3 fL 83.5-101 [facility] Monocytes Auto (Bld) [#/Vol] Ordered By: Bernabe Cr on 05-22-2022 Monocytes (Bld) [#/Vol] 0.8 10*3/uL 0.0-0.[address] [facility] Monocytes/100 WBC Auto (Bld) Ordered By: Bernabe Cr on 05-22-2022 Monocytes/100 WBC (Bld) 10.1 % . [facility] Neutrophils Auto (Bld) [#/Vo l]Ordered By: Bernabe Cr on 05-22-2022 Neutrophils (Bld) [#/Vol] 5.6 10*3/uL 1.8-7.[address] [facility] Neutrophils/100 WBC Auto (Bl d)Ordered By: Bernabe Cr on 05-22-2022 Neutrophils/100 WBC (Bld) 68.2 % . [facility] No Panel InformationOrdered By: Bernabe Cr on 05-22-2022 Estimated GFR () 45 mL/Min [facility] Comment on above: GFR estimated refere nce range: According to KDOQI guidelines, <60 ml/min/1.73m2 is sufficient to diagnose a patient with chronic kidney disease. Pharmacy Creatinine Clearance (Chem 39.[address] [facility] Nucleated erythrocytes [Pres ence] in Blood by Automated countOrdered By: Bernabe Cr on 05-22-2022 Nucleated RBC Auto Ql (Bld) 0.1 /100{WBC} 0-0.[address] [facility] Platelet mean volume Auto (B ld) [Entitic vol]Ordered By: Bernabe Cr on 05-22-2022 Platelet mean volume (Bld) [Entitic vol] 8.7 fL 6.6-10.[address] [facility] Platelets Auto (Bld) [#/Vol] Ordered By: Bernabe Cr on 05-22-2022 Platelets (Bld) [#/Vol] 198 10*3/uL 150-[address] [facility] RBC Auto (Bld) [#/Vol]Ordere d By: Bernabe Cr on 05-22-2022 RBC (Bld) [#/Vol] 4.29 10*6/uL 3.90-5.60 [facility] Serum or plasma anion gap de terminationOrdered By: Bernabe Cr on 05-22-2022 Anion gap [Moles/Vol] 13.3 mmol/L 6.0-15.0 [facility] Serum or plasma calcium elan urement (mass/volume)Ordered By: Bernabe Cr on 05-22-2022 Calcium [Mass/Vol] 8.3 mg/dL 8.2-10.2 [facility] Serum or plasma chloride herb surement (moles/volume)Ordered By: Bernabe Cr on 05-22-2022 Chloride [Moles/Vol] 104 mmol/L 95-114 [facility] Serum or plasma glucose elan urement [...] on 05-22-2022 Potassium [Moles/Vol] 3.3 mmol/L 3.5-5.1 [facility] Serum or plasma sodium measu rement (moles/volume)Ordered By: Bernabe Cr on 05-22-2022 Sodium [Moles/Vol] 137 mmol/L 136-146 [facility] Serum or plasma total carbon dioxide measurement (moles/volume)Ordered By: Bernabe Cr on 05-22-2022 CO2 [Moles/Vol] 23.0 mmol/L 22.0-30.0 [facility] Serum or plasma urea nitroge n measurement (mass/volume)Ordered By: Bernabe Cr on 05-22-2022 Urea nitrogen [Mass/Vol] 21 mg/dL 9-[address] [facility] WBC Auto (Bld) [#/Vol]Ordere d By: Bernabe Cr on 05-22-2022 WBC (Bld) [#/Vol] 8.1 10*3/uL 4.1-10.5 [facility] No Panel InformationOrdered By: Bernabe Cr on 05-21-2022 25-Hydroxy Vitamin D Total 15.9 ng/mL 30-[address] [facility] Comment on above: VITAMIN D STATUS 25( [place])VITAMIN D RANGE (ng/mL) Deficient <20 Insufficient 20 to <30Sufficient 30 to 100Reference: Sixto MF,Federico NC, Palomo LESLIE, et al. Evaluation,treatment, and prevention of vitamin D deficiency; an Endocrine Society clinical practice guideline. JCEM. 2010; 96(7):1911-30. Vitamin C level 0.2 mg/dL 0.4-2.[address] [facility] Comment on above: This test was develo ped and its performance characteristicsdetermined by [employer]. It has not been cleared orapproved by the Food and Drug Administration.Vitamin C deficiency is generally defined as plasma orserum concentrations less than 0.2 mg/dL and levels between0.2 and 0.4 mg/dL are considered low.Performed at: [facility] [address] [id number] Director: Mamadou Rodriguez MD, Phone: [phone] Folate [Mass/volume] in Seru m or PlasmaOrdered By: Taz Barnes on 05-20-2022 Folate [Mass/Vol] 5.5 ng/mL >5.9 [facility] Comment on above: Folate reference ran ge: >5.9 ng/mlThe WHO technical consultation on folate and vitamin [id number] has determined that folate concentrations lessthan 4 ng/ml are considered deficient. Laboratory - Chemistry and C hemistry - challengeOrdered By: Taz Barnes on 05-20-2022 Cobalamin (Vitamin B12) [Mass/Vol] 169 pg/mL 180-[address] [facility] No Panel InformationOrdered By: Taz Barnes on 05-20-2022 Ova and Parasite Result [address] [facility] Ova and Parasite Result [address] [facility] Ova or parasites identificat ionOrdered By: Taz Barnes on 05-20-2022 Ova and parasites identified LM Nom (Unsp spec) [facility] Ova and parasites identified LM Nom (Unsp spec) [facility] Laboratory - Chemistry and C hemistry - challengeOrdered By: Janice Gonzalez on 05-19-2022 Magnesium [Mass/Vol] 1.7 mg/dL 1.6-2.6 [facility] Automated erythrocytes count in urine sediment (number/area)Ordered By: Taz Barnes on 05-18-2022 RBC Auto (Urine sed) [#/Area] 50-100 [HPF] 0-[address] [facility] Automated leukocytes count i n urine sediment (number/area)Ordered By: Taz Barnes on 05-18-2022 WBC Auto (Urine sed) [#/Area] Innumerable [HPF] 0-[address] [facility] Automated urine hyaline cast s count (number/volume)Ordered By: Taz Barnes on 05-18-2022 Hyaline casts Auto (U) [#/Vol] None seen [LPF] 0-[address] [facility] Bilirubin Test strip Ql (U)O rdered By: Taz Barnes on 05-18-2022 Bilirubin Ql (U) Negative Negative [facility] Casts typing in urine sedime nt by light microscopyOrdered By: Taz Barnes on 05-18-2022 Casts LM Nom (Urine sed) None seen [LPF] None Seen [facility] Color Auto (U)Ordered By: Starr Barnes on 05-18-2022 Color (U) Yellow Yellow [facility] Ketones Auto test strip (U) [Mass/Vol]Ordered By: Taz Barnes on 05-18-2022 Ketones (U) [Mass/Vol] Negative Negative [facility] Nitrite Test strip Ql (U)Ord ered By: Taz Barnes on 05-18-2022 Nitrite Ql (U) Negative Negative [facility] Protein Auto test strip (U) [Mass/Vol]Ordered By: Taz Barnes on 05-18-2022 Protein (U) [Mass/Vol] 100 mg/dL Negative [facility] Specific gravity Auto test s trip (U) [Rel density]Ordered By: Taz Barnes on 05-18-2022 Specific gravity (U) [Rel density] 1.010 1.001-1.[address] [facility] Squamous epithelial cells de tection in urine sediment by light microscopyOrdered By: Taz Barnes on 05-18-2022 Epithelial cells.squamous LM Ql (Urine sed) 1-2 [HPF] 0-[address] [facility] Urine bacteria detection by automated methodOrdered By: Taz Barnes on 05-18-2022 Bacteria Auto Ql (U) None seen None Seen [facility] Urine clarity by refractomet ry automatedOrdered By: Taz Barnes on 05-18-2022 Clarity Refractometry automated (U) Turbid Clear [facility] Urine culture routineOrdered By: Taz Barnes on 05-18-2022 Bacteria identified Cx Nom (U) No Growth [address] [facility] Bacteria identified Cx Nom (U) No Growth [address] [facility] Urine glucose measurement by automated test strip (mass/volume)Ordered By: Taz Barnes on 05-18-2022 Glucose Auto test strip (U) [Mass/Vol] Normal mg/dL Normal [facility] Urine hemoglobin detection b y automated test stripOrdered By: Taz Barnes on 05-18-2022 Hemoglobin Auto test strip Ql (U) 2+ Negative [facility] Urine leukocyte esterase det ection by automated test stripOrdered By: Taz Barnes on 05-18-2022 Leukocyte esterase Auto test strip Ql (U) 4+ Negative [facility] Urobilinogen Auto test strip (U) [Mass/Vol]Ordered By: Taz Barnes on 05-18-2022 Urobilinogen (U) [Mass/Vol] Normal mg/dL Normal [facility] Yeast detection in urine sed iment by light microscopyOrdered By: Taz Barnes on 05-18-2022 Yeast LM Ql (Urine sed) None seen [HPF] None Se en [facility] pH Auto test strip (U)Ordere d By: Taz Barnes on 05-18-2022 pH (U) 7.5 [pH] 5.0-9.[address] [facility] Activated partial thrombopla stin time (aPTT) in platelet poor plasma by coagulation aOrdered By: Taz Barnes on 05-16-2022 aPTT Coag (PPP) [Time] 29.5 s 25.1-36.5 [facility] Body fluid albumin measureme nt (mass/volume)Ordered By: Taz Barnes on 05-16-2022 Albumin (Body fld) [Mass/Vol] 2.9 g/dL 3.2-5.[address] [facility] CBC AUTO DIFFon 05-16-2022 BASO # 0.0 103/ul Normal 0.0-0.1 [facility] Comment on above: Performed By: #### C BC #### [facility] [address] [address] [address] Karen Pierce Basophils/100 WBC (Bld) 0.3 % Normal 0.2-2.0 [facility] Comment on above: Performed By: #### C BC #### [facility] [address] [address] [address] Karen Pierce EO # 0.1 103/ul Normal 0.0-0.7 [facility] Comment on above: Performed By: #### C BC #### [facility] [address] [address] [address] Karen Pierce Eosinophils/100 WBC (Bld) 0.7 % Critically low 0.9-7.0 [facility] Comment on above: Performed By: #### C BC #### [facility] [address] [address] [address] Karen Pierce Erythrocyte distribution width (RBC) [Ratio] 14.8 % Normal 11.0-15.0 [facility] Comment on above: Performed By: #### C BC #### [facility] [address] [address] [address] Karen Pierce Hematocrit (Bld) [Volume fraction] 39.4 % Critically low 42.0-54.0 [facility] Comment on above: Performed By: #### C BC #### [facility] [address] [address] [address] Karen Pierce Hemoglobin (Bld) [Mass/Vol] 12.6 g/dL Critically low 14.0-18.0 [facility] Comment on above: Performed By: #### C BC #### [facility] [address] [place] [address] Dr. Karen Pierce IG # 0.04 10e3/ul Critically high 0.00-0.03 [facility] Comment on above: Performed By: #### C BC #### [facility] [address] [place] [address] Dr. Karen Pierce IG % 0.4 % Normal 0.0-0.5 [facility] Comment on above: Performed By: #### C BC #### [facility] [address] [place] [address] Dr. Karen Pierce LYMPH # 1.2 103/ul Normal 1.2-3.8 [facility] Comment on above: Performed By: #### C BC #### [facility] [address] [place] [address] Dr. Karen Pierce Lymphocytes/100 WBC (Bld) 11.8 % Critically low 20.5-60.0 [facility] Comment on above: Performed By: #### C BC #### [facility] [address] [place] [address] Dr. Karen Pierce MANUAL DIFF REQ NO Normal [facility] Comment on above: Performed By: #### C BC #### [facility] [address] [place] [address] Dr. Karen Pierce MCH (RBC) [Entitic mass] 27.5 pg Normal 25.9-34.0 [facility] Comment on above: Performed By: #### C BC #### [facility] [address] [place] [address] Dr. Karen Pierce MCHC (RBC) [Mass/Vol] 32.0 g/dL Normal 29.9-35.2 [facility] Comment on above: Performed By: #### C BC #### [facility] [address] [place] [address] Dr. Karen Pierce MCV (RBC) [Entitic vol] 86.0 fL Normal 80.0-94.0 [facility] Comment on above: Performed By: #### C BC #### [facility] [address] [address] [address] Karen Pierce MONO # 1.4 103/ul Critically high 0.3-0.8 [facility] Comment on above: Performed By: #### C BC #### [facility] [address] [place] [address] Dr. Karen Pierce Monocytes/100 WBC (Bld) 13.8 % Critically high 1.7-12. 0 [facility] Comment on above: Performed By: #### C BC #### [facility] [address] [place] [address] Dr. Karen Pierce NEUT # 7.6 103/ul Critically high 1.4-6.5 [facility] Comment on above: Performed By: #### C BC #### [facility] [address] [place] [address] Dr. Karen Pierce Neutrophils/100 WBC (Bld) 73.0 % Normal 43.0-75.0 [facility] Comment on above: Performed By: #### C BC #### [facility] [address] [place] [address] Dr. Karen Pierce Platelet mean volume (Bld) [Entitic vol] 10.6 fL Normal 9.5-13.5 [facility] Comment on above: Performed By: #### C BC #### [facility] [address] [place] [address] Dr. Karen Pierce PLT 193 103/ul Normal 150-450 [facility] Comment on above: Performed By: #### C BC #### [facility] [address] [place] [address] Dr. Karen Pierce RBC 4.58 106/ul Critically low 4.70-6.10 [facility] Comment on above: Performed By: #### C BC #### [facility] [address] [place] [address] Dr. Karen Pierce WBC 10.4 103/ul Normal 4.0-11.0 [facility] Comment on above: Performed By: #### C BC #### [facility] [address] [place] [address] ABD/PELVIS WO CONon 12-22 -2022 CT ABD/PELVIS WO CON EXAMINATION: CT ABD [...] Date: 2022-05-16 09:21 Normal [facility] CULTURE URINEon 05-16-2022 CULTURE URINE Culture Observations : MODERATE GROWTH OF MIXED SKIN JAS. NO POTENTIAL PATHOGENS SEEN. Normal [facility] Comment on above: Performed By: #### U RTPCR #### [facility] [address] [place], [place] [address] Dr. Karen Pierce Covid-19 PCR ([facility])on 04-26 SARS-CoV-2 (COVID-19) RNA KARI+probe Ql (Unsp spec) Not detected Normal NOT DETECTED [facility] Comment on above: Result Comment: [...] for this test is supported by the Launch Operator of Health and Human Service's declaration that [...] By: #### U A #### [facility] [address] [place], [place] [address] Dr. Karen Pierce Creatinine [Mass/volume] in UrineOrdered By: Taz Barnes on 05-16-2022 Creatinine (U) [Mass/Vol] 68.1 mg/dL [facility] Comment on above: No reference range e stablished ER URINE PROFILEon Bilirubin Ql (U) Negative Normal NEGATIVE [facility] Comment on above: Performed By: #### U RTPCR #### [facility] [address] [address] [address] Karen Pierce Clarity (U) CLEAR Normal CLEAR [facility] Comment on above: Performed By: #### U RTPCR #### [facility] [address] [place] [address] Dr. Karen Pierce Color (U) YELLOW Normal YELLOW [facility] Comment on above: Performed By: #### U RTPCR #### [facility] [address] [place] [address] Dr. Karen Pierce ERUSUHA A micrscopic examina tion will be performed if indicated. Normal [facility] Comment on above: Performed By: #### U RTPCR #### [facility] [address] [place] [address] Dr. Karen Pierce Glucose Ql (U) Negative Normal NEGATIVE [facility] Comment on above: Performed By: #### U RTPCR #### [facility] [address] [place] [address] Dr. Karen Pierce Hemoglobin Ql (U) MODERATE Abnormal NEGATIVE [facility] Comment on above: Performed By: #### U RTPCR #### [facility] [address] [place] [address] Dr. Karen Pierce Ketones Ql (U) Negative Normal NEGATIVE [facility] Comment on above: Performed By: #### U RTPCR #### [facility] [address] [place] [address] Dr. Karen Pierce LEUKOCYTES LARGE Abnormal NEGATIVE [facility] Comment on above: Performed By: #### U RTPCR #### [facility] [address] [place] [address] Dr. Karen Pierce Nitrite Ql (U) Negative Normal NEGATIVE [facility] Comment on above: Performed By: #### U RTPCR #### [facility] [address] [place] [address] Dr. Karen Pierce pH (U) 5.5 [pH] Normal 5-9 [facility] Comment on above: Performed By: #### U RTPCR #### [facility] [address] [address] [address] Karen Pierce SPEC GRAVITY <=1.005 Abnormal 1.005-<=1. 025 [facility] Comment on above: Performed By: #### U RTPCR #### [facility] [address] [place] [address] Dr. Karen Pierce UA PROTEIN Negative Normal NEGATIVE/ TRACE [facility] Comment on above: Performed By: #### U RTPCR #### [facility] [address] [address] [address] Karen Pierce UR MICRO IND INDICATED Normal [facility] Comment on above: Performed By: #### U RTPCR #### [facility] [address] [place] [address] Dr. Karen Pierce Urobilinogen Qn (U) 0.2 {Tonio'U}/dL Normal 0.2 - 1. 0 [facility] Comment on above: Performed By: #### U RTPCR #### [facility] [address] [place] [address] Dr. Karen Pierce Globulin Calc (S) [Mass/Vol] Ordered By: Taz Barnes on 05-16-2022 Globulin (S) [Mass/Vol] 3.5 g/dL [facility] - CoagulationOrde red By: Taz Barnes on 05-16-2022 PT Coag (PPP) [Time] 14.2 s 9.0-12.9 [facility] PROF 14(COMP METB)on 022 Albumin [Mass/Vol] 3.1 g/dL Critically low 3.4-5.0 Th e [facility] Comment on above: Performed By: #### U RTPCR #### [facility] [address] [place] [address] Dr. Karen Pierce Albumin/Globulin [Mass ratio] 0.7 {ratio} Normal [facility] Comment on above: Performed By: #### U RTPCR #### [facility] [address] [place] [address] Dr. Karen Pierce ALP [Catalytic activity/Vol] 96 U/L Normal 46-116 [facility] Comment on above: Performed By: #### U RTPCR #### [facility] [address] [address] [address] Karen Peirce ALT [Catalytic activity/Vol] 46 U/L Normal 16-63 [facility] Comment on above: Performed By: #### U RTPCR #### [facility] [address] [address] [address] Karen Pierce Anion gap [Moles/Vol] 19.7 mmol/L Normal Th e [facility] Comment on above: Performed By: #### U RTPCR #### [facility] [address] [address] [address] Karen Pierce AST [Catalytic activity/Vol] 21 U/L Normal 15-37 [facility] Comment on above: Performed By: #### U RTPCR #### [facility] [address] [place] [address] Dr. Karen Pierce Bilirubin [Mass/Vol] 0.3 mg/dL Normal 0.2-1.0 [facility] Comment on above: Performed By: #### U RTPCR #### [facility] [address] [address] [address] Karen Pierce Calcium [Mass/Vol] 8.9 mg/dL Normal 8.5-10.1 [facility] Comment on above: Performed By: #### U RTPCR #### [facility] [address] [address] [address] Karen Pierce Chloride [Moles/Vol] 101 mmol/L Normal 98-107 [facility] Comment on above: Performed By: #### U RTPCR #### [facility] [address] [address] [address] Karen Pierce CO2 [Moles/Vol] 18.3 mmol/L Critically low 21.0-32.0 [facility] Comment on above: Performed By: #### U RTPCR #### [facility] [address] [address] [address] Karen Pierce Creatinine [Mass/Vol] 8.99 mg/dL Critically high 0.70-1.30 [facility] Comment on above: Performed By: #### U RTPCR #### [facility] [address] [address] [address] Karen Pierce EGFR-AF CYMRO 7 mL/min/1.73m2 Critically low >=60 [facility] Comment on above: Performed By: #### U RTPCR #### [facility] [address] [address] [address] Karen Pierce EGFR-NON AF CYMRO 6 mL/min/1.73m2 Critically low >=60 [facility] Comment on above: Performed By: #### U RTPCR #### [facility] [address] [address] [address] Karen Pierce Globulin (S) [Mass/Vol] 4.7 g/dL Normal [facility] Comment on above: Performed By: #### U RTPCR #### [facility] [address] [address] [address] Karen Pierce Glucose [Mass/Vol] 110 mg/dL Critically high 74-106 [facility] Comment on above: Performed By: #### U RTPCR #### [facility] [address] [address] [address] Karen Pierce Potassium [Moles/Vol] 5.0 mmol/L Normal 3.5-5.1 [facility] Comment on above: Performed By: #### U RTPCR #### [facility] [address] [address] [address] Karen Pierce Protein [Mass/Vol] 7.8 g/dL Normal 6.4-8.2 [facility] Comment on above: Performed By: #### U RTPCR #### [facility] [address] [address] [address] Karen Pierce Sodium [Moles/Vol] 134 mmol/L Critically low 136-145 [facility] Comment on above: Performed By: #### U RTPCR #### [facility] [address] [address] [address] Karen Pierce Urea nitrogen [Mass/Vol] 129.0 mg/dL Critically high 7.0-18.0 [facility] Comment on above: Performed By: #### U RTPCR #### [facility] [address] [place], [place] [address] Dr. Karen Pierce Urea nitrogen/Creatinine [Mass ratio] 14.3 mg/mg Normal [facility] Comment on above: Performed By: #### U RTPCR #### [facility] [address] [place], [place] [address] Dr. Karen Pierce Platelet poor plasma interna tional normalized ratio (INR) by coagulation assay (relatOrdered By: Taz Barnes on 05-16-2022 INR Coag (PPP) [Relative time] 1.3 {INR} [facility] Comment on above: INR Therapeutic [...] additional P-5'-P [Catalytic activity/Vol] 38 U/L 10-[address] [facility] Serum or plasma albumin/glob ulin mass ratioOrdered By: aTz Barnes on 05-16-2022 Albumin/Globulin [Mass ratio] 0.8 {ratio} [facility] Serum or plasma alkaline deonte sphatase measurement (enzymatic activity/volume)Ordered By: Taz Barnes on 05-16-2022 ALP [Catalytic activity/Vol] 78 U/L 32-[address] [facility] Serum or plasma aspartate am inotransferase measurement (enzymatic activity/volume)Ordered By: Taz Barnes on 05-16-2022 AST [Catalytic activity/Vol] 19 U/L 10-[address] [facility] Serum or plasma total biliru bin measurement (mass/volume)Ordered By: Taz Barnes on 05-16-2022 Bilirubin [Mass/Vol] 0.4 mg/dL 0.3-1.2 [facility] URINE MICROSCOPIC ONLYon BACTERIA SMALL Abnormal NONE SEEN [facility] Comment on above: Performed By: #### U RTPCR #### [facility] [address] [place] [address] Dr. Karen Pierce Bacteria identified Cx Nom (U) INDICATED Normal [facility] Comment on above: Performed By: #### U RTPCR #### [facility] [address] [place] [address] Dr. Karen Pierce CAST NONE SEEN Normal NONE SEEN [facility] Comment on above: Performed By: #### U RTPCR #### [facility] [address] [place] [address] Dr. Karen Pierce Crystals LM Nom (Urine sed) NONE SEEN Normal NONE SEEN [facility] Comment on above: Performed By: #### U RTPCR #### [facility] [address] [place] [address] Dr. Karen Pierce Epithelial cells LM Ql (Urine sed) NONE SEEN Normal NONE SEEN /RARE [facility] Comment on above: Performed By: #### U RTPCR #### [facility] [address] [place] [address] Dr. Karen Pierce MUCOUS NONE SEEN Normal NONE SEEN [facility] Comment on above: Performed By: #### U RTPCR #### [facility] [address] [place] [address] Dr. Karen Pierce RBC 20-50 Abnormal 0-2 [facility] Comment on above: Performed By: #### U RTPCR #### [facility] [address] [place] [address] Dr. Karen Pierce WBC (U) [#/Vol] /uL Abnormal NONE SEEN [facility] Comment on above: Performed By: #### U RTPCR #### [facility] [address] [place] [address] Dr. Karen Pierce Urine sodium measurement (mo les/volume)Ordered By: Taz Barnes on 05-16-2022 Sodium (U) [Moles/Vol] 42.0 mmol/L [facility] Comment on above: No reference range [...] Date: 2022-05-16 09:25 Normal [facility] CBC AUTO DIFFon 05-15-2022 BASO # 0.0 103/ul Normal 0.0-0.1 [facility] Comment on above: Performed By: #### U A #### [facility] [address] [address] [address] Karen Pierce Basophils/100 WBC (Bld) 0.3 % Normal 0.2-2.0 [facility] Comment on above: Performed By: #### U A #### [facility] [address] [address] [address] Karen Pierce EO # 0.1 103/ul Normal 0.0-0.7 [facility] Comment on above: Performed By: #### U A #### [facility] [address] [address] [address] Karen Pierce Eosinophils/100 WBC (Bld) 0.7 % Critically low 0.9-7.0 [facility] Comment on above: Performed By: #### U A #### [facility] [address] [address] [address] Karen Pierce Erythrocyte distribution width (RBC) [Ratio] 14.9 % Normal 11.0-15.0 [facility] Comment on above: Performed By: #### U A #### [facility] [address] [place] [address] Dr. Karen Pierce Hematocrit (Bld) [Volume fraction] 39.8 % Critically low 42.0-54.0 [facility] Comment on above: Performed By: #### U A #### [facility] [address] [place] [address] Dr. Karen Pierce Hemoglobin (Bld) [Mass/Vol] 12.7 g/dL Critically low 14.0-18.0 [facility] Comment on above: Performed By: #### U A #### [facility] [address] [place] [address] Dr. Karen Pierce IG # 0.06 10e3/ul Critically high 0.00-0.03 [facility] Comment on above: Performed By: #### U A #### [facility] [address] [place] [address] Dr. Karen Pierce IG % 0.5 % Normal 0.0-0.5 [facility] Comment on above: Performed By: #### U A #### [facility] [address] [place] [address] Dr. Karen Pierce LYMPH # 0.9 103/ul Critically low 1.2-3.8 [facility] Comment on above: Performed By: #### U A #### [facility] [address] [place] [address] Dr. Karen Pierce Lymphocytes/100 WBC (Bld) 7.1 % Critically low 20.5-60.0 [facility] Comment on above: Performed By: #### U A #### [facility] [address] [place] [address] Dr. Karen Pierce MANUAL DIFF REQ NO Normal [facility] Comment on above: Performed By: #### U A #### [facility] [address] [place] [address] Dr. Karen Pierce MCH (RBC) [Entitic mass] 27.7 pg Normal 25.9-34.0 [facility] Comment on above: Performed By: #### U A #### [facility] [address] [address] [address] Karen Pierce MCHC (RBC) [Mass/Vol] 31.9 g/dL Normal 29.9-35.2 [facility] Comment on above: Performed By: #### U A #### [facility] [address] [address] [address] Karen Pierce MCV (RBC) [Entitic vol] 86.7 fL Normal 80.0-94.0 [facility] Comment on above: Performed By: #### U A #### [facility] [address] [address] [address] Karen Pierce MONO # 1.0 103/ul Critically high 0.3-0.8 [facility] Comment on above: Performed By: #### U A #### [facility] [address] [place] [address] Dr. Karen Pierce Monocytes/100 WBC (Bld) 8.5 % Normal 1.7-12.0 [facility] Comment on above: Performed By: #### U A #### [facility] [address] [place] [address] Dr. Karen Pierce NEUT # 9.9 103/ul Critically high 1.4-6.5 [facility] Comment on above: Performed By: #### U A #### [facility] [address] [place] [address] Dr. Karen Pierce Neutrophils/100 WBC (Bld) 82.9 % Critically high 43.0-75.0 [facility] Comment on above: Performed By: #### U A #### [facility] [address] [place] [address] Dr. Karen Pierce Platelet mean volume (Bld) [Entitic vol] 9.7 fL Normal 9.5-13.5 [facility] Comment on above: Performed By: #### U A #### [facility] [address] [place] [address] Dr. Karen Pierce PLT 206 103/ul Normal 150-450 [facility] Comment on above: Performed By: #### U A #### [facility] [address] [address] [address] Karen Pierce RBC 4.59 106/ul Critically low 4.70-6.10 [facility] Comment on above: Performed By: #### U A #### [facility] [address] [place] [address] Dr. Karen Pierce WBC 11.9 103/ul Critically high 4.0-11.0 [facility] Comment on above: Performed By: #### U A #### [facility] [address] [place] [address] Dr. Karen Pierce LIPASEon 05-15-2022 Lipase [Catalytic activity/Vol] 340.0 U/L Normal 73.0-393.0 [facility] Comment on above: Performed By: #### U A #### [facility] [address] [place] [address] Dr. Karen Pierce PROF 14(COMP METB)on 022 Albumin [Mass/Vol] 3.1 g/dL Critically low 3.4-5.0 [facility] Comment on above: Performed By: #### U A #### [facility] [address] [place] [address] Dr. Karen Pierce Albumin/Globulin [Mass ratio] 0.7 {ratio} Normal [facility] Comment on above: Performed By: #### U A #### [facility] [address] [place] [address] Dr. Karen Pierce ALP [Catalytic activity/Vol] 105 U/L Normal 46-116 [facility] Comment on above: Performed By: #### U A #### [facility] [address] [place] [address] Dr. Karen Pierce ALT [Catalytic activity/Vol] 49 U/L Normal 16-63 [facility] Comment on above: Performed By: #### U A #### [facility] [address] [place] [address] Dr. Karen Pierce Anion gap [Moles/Vol] 18.4 mmol/L Normal [facility] Comment on above: Performed By: #### U A #### [facility] [address] [address] [address] Karen Pierce AST [Catalytic activity/Vol] 20 U/L Normal 15-37 [facility] Comment on above: Performed By: #### U A #### [facility] [address] [address] [address] Karen Pierce Bilirubin [Mass/Vol] 0.3 mg/dL Normal 0.2-1.0 [facility] Comment on above: Performed By: #### U A #### [facility] [address] [address] [address] Karen Pierce Calcium [Mass/Vol] 9.1 mg/dL Normal 8.5-10.1 [facility] Comment on above: Performed By: #### U A #### [facility] [address] [address] [address] Karen Pierce Chloride [Moles/Vol] 103 mmol/L Normal 98-107 [facility] Comment on above: Performed By: #### U A #### [facility] [address] [address] [address] Karen Pierce CO2 [Moles/Vol] 20.1 mmol/L Critically low 21.0-32.0 [facility] Comment on above: Performed By: #### U A #### [facility] [address] [place] [address] Dr. Karen Pierce Creatinine [Mass/Vol] 9.58 mg/dL Critically high 0.70-1.30 [facility] Comment on above: Performed By: #### U A #### [facility] [address] [place] [address] Dr. Karen Pierce EGFR-AF CYMRO 6 mL/min/1.73m2 Critically low >=60 [facility] Comment on above: Performed By: #### U A #### [facility] [address] [address] [address] Karen Pierce EGFR-NON AF CYMRO 5 mL/min/1.73m2 Critically low >=60 [facility] Comment on above: Performed By: #### U A #### [facility] [address] [address] [address] Karen Pierce Globulin (S) [Mass/Vol] 4.6 g/dL Normal [facility] Comment on above: Performed By: #### U A #### [facility] [address] [address] [address] Karen Pierce Glucose [Mass/Vol] 114 mg/dL Critically high 74-106 [facility] Comment on above: Performed By: #### U A #### [facility] [address] [address] [address] Karen Pierce Potassium [Moles/Vol] 5.5 mmol/L Critically high 3.5-5.1 [facility] Comment on above: Performed By: #### U A #### [facility] [address] [place] [address] Dr. Karen Pierce Protein [Mass/Vol] 7.7 g/dL Normal 6.4-8.2 [facility] Comment on above: Performed By: #### U A #### [facility] [address] [place] [address] Dr. Karen Pierce Sodium [Moles/Vol] 136 mmol/L Normal 136-145 [facility] Comment on above: Performed By: #### U A #### [facility] [address] [place] [address] Dr. Karen Pierce Urea nitrogen [Mass/Vol] 134.0 mg/dL Critically high 7.0-18.0 [facility] Comment on above: Performed By: #### U A #### [facility] [address] [place] [address] Dr. Karen Pierce Urea nitrogen/Creatinine [Mass ratio] 14.0 mg/mg Normal [facility] Comment on above: Performed By: #### U A #### [facility] [address] [place] [address] Dr. Karen Pierce PROF CHEM 8 (BAS METB)on Anion gap [Moles/Vol] 12.6 mmol/L Normal [facility] Comment on above: Performed By: #### B MP #### [facility] [address] [address] [address] Karen Pierce Calcium [Mass/Vol] 8.7 mg/dL Normal 8.5-10.1 [facility] Comment on above: Performed By: #### B MP #### [facility] [address] [place] [address] Dr. Karen Pierce Chloride [Moles/Vol] 103 mmol/L Normal 98-107 [facility] Comment on above: Performed By: #### B MP #### [facility] [address] [address] [address] Karen Pierce CO2 [Moles/Vol] 27.3 mmol/L Normal 21.0-32.0 [facility] Comment on above: Performed By: #### B MP #### [facility] [address] [place] [address] Dr. Karen Pierce Creatinine [Mass/Vol] 1.26 mg/dL Normal 0.70-1.30 [facility] Comment on above: Performed By: #### B MP #### [facility] [address] [place] [address] Dr. Karen Pierce EGFR-AF CYMRO >60 Normal >=60 [facility] Comment on above: Performed By: #### B MP #### [facility] [address] [place] [address] Dr. Karen Pierce EGFR-NON AF CYMRO 55 mL/min/1.73m2 Critically low >=60 [facility] Comment on above: Performed By: #### B MP #### [facility] [address] [address] [address] Karen Pierce Glucose [Mass/Vol] 111 mg/dL Critically high 74-106 [facility] Comment on above: Performed By: #### B MP #### [facility] [address] [place] [address] Dr. Karen Pierce Potassium [Moles/Vol] 3.9 mmol/L Normal 3.5-5.1 [facility] Comment on above: Performed By: #### B MP #### [facility] [address] [place] [address] Dr. Karen Pierce Sodium [Moles/Vol] 139 mmol/L Normal 136-145 [facility] Comment on above: Performed By: #### B ROBYN #### [facility] [address] [address] [address] Karen Pierce Urea nitrogen [Mass/Vol] 21.0 mg/dL Critically high 7.0-18.0 [facility] Comment on above: Performed By: #### B ROBYN #### [facility] [address] [place], [place] [address] Dr. Karen Pierce Urea nitrogen/Creatinine [Mass ratio] 16.7 mg/mg Normal [facility] Comment on above: Performed By: #### B ROBYN #### [facility] [address] [address] [address] Karen Pierce [facility] 05-11-2021 Albumin [Mass/Vol] 4.5 g/dL Normal 3.6-5.1 [facility] Comment on above: Performed By: #### C ROBYN LIPElvie #### [facility] [address], [place] [id number] Albumin/Globulin [Mass ratio] 2.0 {ratio} Normal 1.0-2.5 [facility] Comment on above: Performed By: #### C ROBYN LIPElvie #### [facility] [address], [place] [id number] ALP [Catalytic activity/Vol] 97 U/L Normal 40-129 [facility] Special[facility] Comment on above: Performed By: #### C ROBYN LIPD #### [facility] [address], [place] [id number] ALT [Catalytic activity/Vol] 18 U/L Normal 9-46 [facility] Comment on above: Result Comment: 04/25 Female reference range changed. Performed By: #### C ROBYN LIPD #### [facility] [address], [place] [id number] Anion gap [Moles/Vol] 17 mmol/L Normal 12-20 [facility] Comment on above: Result Comment: Effe ctive 05/31/2019 reference range changed. Performed By: #### C ROBYN LIPD #### [facility] [address], [place] [id number] AST [Catalytic activity/Vol] 15 U/L Normal 10-40 [facility] Comment on above: Performed By: #### C ROBYN LIPElvie #### [facility] [address], [place] [id number] Bilirubin [Mass/Vol] 0.55 mg/dL Normal 0.30-1.20 [facility] Comment on above: Performed By: #### C ROBYN LIPElvie #### [facility] [address], [place] [id number] BUN/CREA 17 Ratio Normal 6-22 [facility] Comment on above: Performed By: #### C ROBYN LIPElvie #### [facility] [address], [place] [id number] Calcium [Mass/Vol] 9.8 mg/dL Normal 8.6-10.2 [facility] Comment on above: Performed By: #### C ROBYN LIPElvie #### [facility] [address], [place] [id number] Chloride [Moles/Vol] 106 mmol/L Normal 98-107 [facility] Comment on above: Performed By: #### C ROBYN LIPElvie #### [facility] [address], [place] [id number] CO2 [Moles/Vol] 23 mmol/L Normal 20-31 [facility] Comment on above: Performed By: #### C ROBYN LIPElvie #### [facility] [address], [place] [id number] Creatinine [Mass/Vol] 1.2 mg/dL Normal 0.7-1.4 [facility] Comment on above: Performed By: #### C ROBYN LIPD #### [facility] [address], [place] [id number] eGFRAA 73 mL/min/1.73m2 Normal >60 [facility] Comment on above: Performed By: #### C ROBYN LIPD #### [facility] [address], [place] [id number] eGFRNAA 60 mL/min/1.73m2 Low >60 [place] [facility] Comment on above: Performed By: #### C ROBYN, LIPD #### [facility] [address], [place] [id number] Globulin (S) [Mass/Vol] 2.3 g/dL Normal 1.9-3.7 [facility] Special[facility] Comment on above: Performed By: #### C MP, LIPD #### [facility] [address], [place] [id number] Glucose [Mass/Vol] 105 mg/dL High 65-99 [facility] Comment on above: Result Comment: For FASTING Glucose --- ADA reference ranges: Normal 65-99 mg/dl Prediabetes 100-125 Diabetes >/= 126 Performed By: #### C ROBYN, LIPD #### [facility] [address], [place] [id number] Potassium [Moles/Vol] 4.1 mmol/L Normal 3.5-5.5 [facility] Comment on above: Performed By: #### C ROBYN, LIPD #### [facility] [address], [place] [id number] Protein [Mass/Vol] 6.8 g/dL Normal 6.1-8.1 [facility] Comment on above: Performed By: #### C ROBYN, LIPD #### [facility] [address], [place] [id number] Sodium [Moles/Vol] 142 mmol/L Normal 135-146 [facility] Comment on above: Performed By: #### C ROBYN, LIPD #### [facility] [address], [place] [id number] Urea nitrogen [Mass/Vol] 20 mg/dL Normal 7-25 [facility] Comment on above: Performed By: #### C ROBYN, LIPD #### [facility] [address], [place] [id number] Lipid Panelon 05-11-2021 Cholesterol [Mass/Vol] 109 mg/dL Low 125-200 [facility] Comment on above: Result Comment: Low risk < 200mg/dL Borderline risk 201-239 mg/dl High risk > or equal to 240 Performed By: #### C ROBYN, LIPD #### [facility] [address], [place] [id number] Cholesterol in HDL [Mass/Vol] 30 mg/dL Low >40 [facility] Comment on above: Result Comment: High Cardiovascular Risk HDL <40 mg/dL Low Cardiovascular Risk HDL > or equal to 60 mg/dl Performed By: #### C MP, LIPD #### [facility] [address], [place] [id number] Cholesterol in LDL [Mass/Vol] 54 mg/dL Normal [facility] Comment on above: Result Comment: LDL ATP III CLASSIFICATION LDL less than 100 mg/dl Optimal LDL 100-129 mg/dl Near or above optimal LDL 130-159 Borderline high LDL 160-189 High LDL greater than 189 mg/dl Very High Performed By: #### C ROBYN, LIPD #### [facility] [address], [place] [id number] Cholesterol in VLDL [Mass/Vol] 25 mg/dL Normal [facility] Comment on above: Performed By: #### C ROBYN, LIPD #### [facility] [address], [place] [id number] Cholesterol.total/Sonya sterol in HDL [Mass ratio] 4 {ratio} Normal [facility] Comment on above: Performed By: #### C ROBYN, LIPD #### [facility] [address], [place] [id number] Triglyceride [Mass/Vol] 126 mg/dL Normal 30-150 [place] [facility] Comment on above: Result Comment: TRIG ATPIII CLASSIFICATIONS TRIG less than 150 mg/dl Normal TRIG 150-199 mg/dl Borderline High TRIG 200-500 mg/dl High TRIG greather than 500 mg/dl Very High Performed By: #### C MP, LIPD #### [facility] [address], [place] [id number] Vital Signs Date Time Vital Sign Value Performing Clinician Facility 04-06-2024 11:14-0500 Blood Pressure Location Katia JACOBS [facility] 04-06-2024 11:14-0500 Diastolic blood pressure 69 mm[Hg] Katia JACOBS [facility] 04-06-2024 11:14-0500 Heart rate 79 /min Katia JACOBS [facility] 04-06-2024 11:14-0500 Systolic blood pressure 107 mm[Hg] Katia JACOBS [facility] 03-18-2024 11:18-0400 Body height 188 cm Stanley Emerson MD Work Phone: [facility] 03-18-2024 11:18-0400 Body mass index (BMI) [Ratio] 28.63 kg/m2 Stanley Emerson MD Work Phone: [facility] 03-18-2024 11:18-0400 Body weight 101.15 kg Stanley Emerson MD Work Phone: [facility] 03-18-2024 11:18-0400 Heart rate 82 /min Stanley Emerson MD Work Phone: [facility] 03-18-2024 11:18-0400 SaO2% (BldA) [Mass fraction] 97 % Stanley Emerson MD Work Phone: [facility] 03-08-2024 12:45-0400 Body height 187.96 cm MD Stanley Emerson Work Phone: [facility] 03-08-2024 12:45-0400 Body mass index (BMI) [Ratio] 25.6 kg/m2 MD Stanley Emerson Work Phone: [facility] 03-08-2024 12:45-0400 Body temperature 98.3 [degF] MD Stanley Emerson Work Phone: [facility] 03-08-2024 12:45-0400 Body weight 90.43 kg MD Stanley Emerson Work Phone: [facility] 03-08-2024 12:45-0400 Diastolic blood pressure 69 mm[Hg] MD Stanley Emerson Work Phone: [facility] 03-08-2024 12:45-0400 Heart rate 92 /min MD Stanley Emerson Work Phone: [facility] 03-08-2024 12:45-0400 SaO2% (BldA) [Mass fraction] 99 % MD Stanley Emerson Work Phone: [facility] 03-08-2024 12:45-0400 Systolic blood pressure 103 mm[Hg] MD Stanley Emerson Work Phone: [facility] 02-24-2024 15:19-0400 Body height 188 cm [facility] 02-24-2024 15:19-0400 Body mass index (BMI) [Ratio] 26.32 kg/m2 [facility] 02-24-2024 15:19-0400 Body weight 92.99 kg [facility] 02-24-2024 15:19-0400 Diastolic blood pressure 62 mm[Hg] [facility] 02-24-2024 15:19-0400 Heart rate 85 /min [facility] 02-24-2024 15:19-0400 Systolic blood pressure 100 mm[Hg] [facility] 02-17-2024 11:52-0400 Body height 188 cm Stanley Emerson MD Work Phone: [facility] 02-17-2024 11:52-0400 Body mass index (BMI) [Ratio] 28.63 kg/m2 Stanley Emerson MD Work Phone: [facility] 02-17-2024 11:52-0400 Body weight 101.15 kg Stanley Emerson MD Work Phone: [facility] 02-04-2024 11:48-0400 Body height 187.96 cm MD Stanley Emerson Work Phone: [facility] 02-04-2024 11:48-0400 Body mass index (BMI) [Ratio] 28.2 kg/m2 MD Stanley Emerson Work Phone: [facility] 02-04-2024 11:48-0400 Body temperature 96.1 [degF] MD Stanley Emerson Work Phone: [facility] 02-04-2024 11:48-0400 Body weight 99.79 kg MD Stanley Emerson Work Phone: [facility] 02-04-2024 11:48-0400 Diastolic blood pressure 65 mm[Hg] MD Stanley Emerson Work Phone: [facility] 02-04-2024 11:48-0400 Heart rate 76 /min MD Stanley Emerson Work Phone: [facility] 02-04-2024 11:48-0400 Respiratory rate 18 /min MD Stanley Emerson Work Phone: [facility] 02-04-2024 11:48-0400 SaO2% (BldA) [Mass fraction] 96 % MD Stanley Emerson Work Phone: [facility] 02-04-2024 11:48-0400 Systolic blood pressure 99 mm[Hg] MD Stanley Emerson Work Phone: [facility] 01-23-2024 15:00-0400 Body height 187.96 cm MD Stanley Emerson Work Phone: [facility] 01-23-2024 11:19-0400 Diastolic blood pressure 62 mm[Hg] MD Stanley Emerson Work Phone: [facility] 01-23-2024 11:19-0400 Heart rate 64 /min MD Stanley Emerson Work Phone: [facility] 01-23-2024 11:19-0400 Systolic blood pressure 90 mm[Hg] MD Stanley Emerson Work Phone: [facility] 01-23-2024 11:13-0400 Respiratory rate 20 /min MD Stanley Emerson Work Phone: [facility] 01-23-2024 11:13-0400 SaO2% (BldA) [Mass fraction] 96 % MD Stanley Emerson Work Phone: [facility] 01-23-2024 04:44-0400 Body weight 98.6 kg MD Stanley Emerson Work Phone: [facility] 01-22-2024 23:41-0400 Body temperature 98.2 [degF] MD Stanley Emerson Work Phone: [facility] 01-19-2024 10:00-0400 Inhaled oxygen flow rate 2 L/min MD Stanley Emerson Work Phone: [facility] 01-14-2024 09:35-0400 Diastolic blood pressure 67 mm[Hg] MD Stanley Emerson Work Phone: [facility] 01-14-2024 09:35-0400 Heart rate 65 /min MD Stanley Emerson Work Phone: [facility] 01-14-2024 09:35-0400 Respiratory rate 16 /min MD Stanley Emerson Work Phone: [facility] 01-14-2024 09:35-0400 SaO2% (BldA) [Mass fraction] 97 % MD Stanley Emerson Work Phone: [facility] 01-14-2024 09:35-0400 Systolic blood pressure 109 mm[Hg] MD Stanley Emerson Work Phone: [facility] 01-14-2024 07:41-0400 Body height 187.96 cm MD Stanley Emerson Work Phone: [facility] 01-14-2024 07:41-0400 Body weight 104.32 kg MD Stanley Emerson Work Phone: [facility] 10-22-2023 10:57-0400 Body height 187.96 cm MD Stanley Emerson Work Phone: [facility] 10-22-2023 10:57-0400 Body mass index (BMI) [Ratio] 28 kg/m2 MD Stanley Emerson Work Phone: [facility] 10-22-2023 10:57-0400 Body temperature 96.8 [degF] MD Stanley Emerson Work Phone: [facility] 10-22-2023 10:57-0400 Body weight 99.1 kg MD Stanley Emerson Work Phone: [facility] 10-22-2023 10:57-0400 Diastolic blood pressure 76 mm[Hg] MD Stanley Emerson Work Phone: [facility] 10-22-2023 10:57-0400 Heart rate 71 /min MD Stanley Emerson Work Phone: [facility] 10-22-2023 10:57-0400 Respiratory rate 18 /min MD Stanley Emerson Work Phone: [facility] 10-22-2023 10:57-0400 SaO2% (BldA) [Mass fraction] 98 % MD Stanley Emerson Work Phone: [facility] 10-22-2023 10:57-0400 Systolic blood pressure 110 mm[Hg] MD Stanley Emerson Work Phone: [facility] 09-18-2023 10:47-0400 Body height 187.96 cm MD Stanley Emerson Work Phone: [facility] 09-18-2023 10:47-0400 Body mass index (BMI) [Ratio] 28.6 kg/m2 MD Stanley Emerson Work Phone: [facility] 09-18-2023 10:47-0400 Body temperature 97.8 [degF] MD Stanley Emerson Work Phone: [facility] 09-18-2023 10:47-0400 Body weight 101.15 kg MD Stanley Emerson Work Phone: [facility] 09-18-2023 10:47-0400 Diastolic blood pressure 68 mm[Hg] MD Stanley Emerson Work Phone: [facility] 09-18-2023 10:47-0400 Heart rate 64 /min MD Stanley Emerson Work Phone: [facility] 09-18-2023 10:47-0400 Respiratory rate 16 /min MD Stanley Emerson Work Phone: [facility] 09-18-2023 10:47-0400 SaO2% (BldA) [Mass fraction] 98 % MD Stanley Emerson Work Phone: [facility] 09-18-2023 10:47-0400 Systolic blood pressure 118 mm[Hg] MD Stanley Emerson Work Phone: [facility] 06-30-2023 14:17-0500 Blood Pressure Location Katia JACOBS [facility] 06-30-2023 14:17-0500 Diastolic blood pressure 77 mm[Hg] Katia JACOBS [facility] 06-30-2023 14:17-0500 Heart rate 70 /min Katia JACOBS [facility] 06-30-2023 14:17-0500 Respiratory rate 16 /min Katia JACOBS [facility] 06-30-2023 14:17-0500 Systolic blood pressure 109 mm[Hg] Katia JACOBS [facility] 04-15-2023 14:00-0500 Body height 187.96 cm Celia Griffin Other [facility] Other 04-15-2023 14:00-0500 Body mass index (BMI) [Ratio] 28.73 kg/m2 Celia Danielss Other [facility] Other 04-15-2023 14:00-0500 Body temperature 96.8 [degF] Celia Griffin Other [facility] Other 04-15-2023 14:00-0500 Body weight 101.52 kg Celia Danielss Other [facility] Other 04-15-2023 14:00-0500 Diastolic blood pressure 100 mm[Hg] Celia Danielss Other [facility] Other 04-15-2023 14:00-0500 Respiratory rate 18 /min Celia Danielss Other [facility] Other 04-15-2023 14:00-0500 SaO2% (BldA) [Mass fraction] 96 % Celia Danielss Other [facility] Other 04-15-2023 14:00-0500 Systolic blood pressure 161 mm[Hg] Celia Danielss Other [facility] Other 03-11-2023 13:38-0400 Blood Pressure Location Katia JACOBS [facility] 03-11-2023 13:38-0400 Diastolic blood pressure 100 mm[Hg] Katia JACOBS [facility] 03-11-2023 13:38-0400 Heart rate 72 /min Katia JACOBS [facility] 03-11-2023 13:38-0400 Systolic blood pressure 150 mm[Hg] Katia JACOBS [facility] 01-22-2023 09:57-0400 Body height 187.96 cm Stanley Emerson Work Phone: [facility] DO Work Phone: 01-22-2023 09:57-0400 Body mass index (BMI) [Ratio] 27.35 kg/m2 Stanley Emerson Work Phone: [facility] DO Work Phone: 01-22-2023 09:57-0400 Body surface area Derived from formula 2.23 m2 Stanley Emerson Work Phone: [facility] DO Work Phone: 01-22-2023 09:57-0400 Body weight 96.62 kg Stanley Emerson Work Phone: [facility] DO Work Phone: 01-22-2023 09:57-0400 Diastolic blood pressure 88 mm[Hg] Stanley Emerson Work Phone: [facility] DO Work Phone: 01-22-2023 09:57-0400 Heart rate 72 /min Stanley Emerson Work Phone: [facility] DO Work Phone: 01-22-2023 09:57-0400 Systolic blood pressure 126 mm[Hg] Stanley Emerson Work Phone: [facility] DO Work Phone: 08-21-2022 14:30-0400 Body height 187.96 cm Carlene Kasper Other [facility] Other 08-21-2022 14:30-0400 Body mass index (BMI) [Ratio] 26.32 kg/m2 Carlene Kasper Other [facility] Other 08-21-2022 14:30-0400 Body temperature 97.8 [degF] Carlene Kasper Other [facility] Other 08-21-2022 14:30-0400 Body weight 92.99 kg Carlene Kasper Other [facility] Other 08-21-2022 14:30-0400 Diastolic blood pressure 82 mm[Hg] Carlene Kasper Other [facility] Other 08-21-2022 14:30-0400 SaO2% (BldA) [Mass fraction] 96 % Carlene Kasper Other [facility] Other 08-21-2022 14:30-0400 Systolic blood pressure 124 mm[Hg] Carlene Kasper Other [facility] Other 07-31-2022 07:25-0500 Blood Pressure Location Katia JACOBS [facility] 07-31-2022 07:25-0500 Diastolic blood pressure 89 mm[Hg] Katia JACOBS [facility] 07-31-2022 07:25-0500 Heart rate 70 /min Katia JACOBS [facility] 07-31-2022 07:25-0500 Respiratory rate 16 /min Katia JACOBS [facility] 07-31-2022 07:25-0500 Systolic blood pressure 130 mm[Hg] Katia JACOBS [facility] 07-25-2022 09:45-0500 Body height 187.96 cm Margarito Valentine Other [facility] Other 07-25-2022 09:45-0500 Body mass index (BMI) [Ratio] 26.32 kg/m2 Margarito Valentine Other [facility] Other 07-25-2022 09:45-0500 Body temperature 96.2 [degF] Margarito Valentine Other [facility] Other 07-25-2022 09:45-0500 Body weight 92.99 kg Margarito Valentine Other [facility] Other 07-25-2022 09:45-0500 Diastolic blood pressure 60 mm[Hg] Margarito Valentine Other [facility] Other 07-25-2022 09:45-0500 SaO2% (BldA) [Mass fraction] 97 % Margarito Valentine Other [facility] Other 07-25-2022 09:45-0500 Systolic blood pressure 110 mm[Hg] Margarito Valentine Other [facility] Other 07-03-2022 07:34-0500 Body temperature 98.9 [degF] MD Stanley Emerson Work Phone: [facility] 07-03-2022 07:34-0500 Diastolic blood pressure 91 mm[Hg] MD Stanley Emerson Work Phone: [facility] 07-03-2022 07:34-0500 Heart rate 87 /min MD Stanley Emerson Work Phone: [facility] 07-03-2022 07:34-0500 Respiratory rate 18 /min MD Stanley Emerson Work Phone: [facility] 07-03-2022 07:34-0500 SaO2% (BldA) [Mass fraction] 94 % MD Stanley Emerson Work Phone: [facility] 07-03-2022 07:34-0500 Systolic blood pressure 159 mm[Hg] MD Stanley Emerson Work Phone: [facility] 07-03-2022 05:46-0500 Body weight 94 kg MD Stanley Emerson Work Phone: [facility] 07-02-2022 16:27-0500 Inhaled oxygen flow rate 6 L/min MD Stanley Emerson Work Phone: [facility] 07-02-2022 10:06-0500 Body height 185.42 cm MD Stanley Emerson Work Phone: [facility] 07-02-2022 10:06-0500 Body mass index (BMI) [Ratio] 27.3 kg/m2 MD Stanley Emerson Work Phone: [facility] 06-19-2022 10:00-0500 Body height 187.96 cm Margarito Valentine Other [facility] Other 06-19-2022 10:00-0500 Body mass index (BMI) [Ratio] 26.32 kg/m2 Margarito Valentine Other [facility] Other 06-19-2022 10:00-0500 Body temperature 97.8 [degF] Margarito Valentine Other [facility] Other 06-19-2022 10:00-0500 Body weight 92.99 kg Margarito Valentine Other [facility] Other 06-19-2022 10:00-0500 Diastolic blood pressure 68 mm[Hg] Margarito Valentine Other [facility] Other 06-19-2022 10:00-0500 SaO2% (BldA) [Mass fraction] 95 % Margarito Valentine Other [facility] Other 06-19-2022 10:00-0500 Systolic blood pressure 108 mm[Hg] Margarito Valentine Other [facility] Other 06-12-2022 13:07-0500 Body height 187.96 cm MD Stanley Emerson Work Phone: [facility] 06-12-2022 13:07-0500 Body weight 93.44 kg MD Stanley Emerson Work Phone: [facility] 06-06-2022 12:00-0500 Body height 187.96 cm Margarito Valentine Other [facility] Other 06-06-2022 12:00-0500 Body mass index (BMI) [Ratio] 26.32 kg/m2 Margarito Valentine Other [facility] Other 06-06-2022 12:00-0500 Body temperature 97.2 [degF] Margarito Valentine Other [facility] Other 06-06-2022 12:00-0500 Body weight 92.99 kg Margarito Valentine Other [facility] Other 06-06-2022 12:00-0500 Diastolic blood pressure 70 mm[Hg] Margarito Topetesarina Other [employer] Other 06-06-2022 12:00-0500 SaO2% (BldA) [Mass fraction] 98 % Margarito Topetesarina Other [employer] Other 06-06-2022 12:00-0500 Systolic blood pressure 108 mm[Hg] Margarito Topetesarina Other [employer] Other 06-04-2022 12:00-0500 Body height 187.96 cm Celia Xinguodu Other [employer] Other 06-04-2022 12:00-0500 Body mass index (BMI) [Ratio] 26.42 kg/m2 Celia Xinguodu Other [employer] Other 06-04-2022 12:00-0500 Body temperature 96.6 [degF] Celia Xinguodu Other [employer] Other 06-04-2022 12:00-0500 Body weight 93.35 kg Celia Xinguodu Other [employer] Other 06-04-2022 12:00-0500 Diastolic blood pressure 70 mm[Hg] Azcelestino [employer] Other [employer] Other 06-04-2022 12:00-0500 Respiratory rate 20 /min Celia [employer] Other [employer] Other 06-04-2022 12:00-0500 SaO2% (BldA) [Mass fraction] 98 % Celia Griffin Other [facility] [employer] Other 06-04-2022 12:00-0500 Systolic blood pressure 100 mm[Hg] Celia Griffin Other [facility] [employer] Other 06-03-2022 15:38-0500 Body height 187.96 cm Stanley Singhjose cruz Work Phone: [facility] 250 DO Work Phone: 06-03-2022 15:38-0500 Body mass index (BMI) [Ratio] 26.45 kg/m2 Stanley Emerson Work Phone: [facility] DO Work Phone: 06-03-2022 15:38-0500 Body surface area Derived from formula 2.2 m2 Stanley Emerson Work Phone: [facility] 250 DO Work Phone: 06-03-2022 15:38-0500 Body weight 93.44 kg Stanley Emerson Work Phone: [facility] 250 DO Work Phone: 06-03-2022 15:38-0500 Diastolic blood pressure 78 mm[Hg] Stanley Emerson Work Phone: [facility] 250 DO Work Phone: 06-03-2022 15:38-0500 Heart rate 71 /min Stanley Emerson Work Phone: [facility] 250 DO Work Phone: 06-03-2022 15:38-0500 Systolic blood pressure 106 mm[Hg] Stanley Emerson Work Phone: [facility] 250 DO Work Phone: 05-22-2022 11:53-0500 Body temperature 98.8 [degF] MD Stanley Emerson Work Phone: [facility] 05-22-2022 11:53-0500 Diastolic blood pressure 72 mm[Hg] MD Stanley Emerson Work Phone: [facility] 05-22-2022 11:53-0500 Heart rate 78 /min MD Stanley Emerson Work Phone: [facility] 05-22-2022 11:53-0500 Respiratory rate 16 /min MD Stanley Emerson Work Phone: [facility] 05-22-2022 11:53-0500 SaO2% (BldA) [Mass fraction] 97 % MD Stanley Emerson Work Phone: [facility] 05-22-2022 11:53-0500 Systolic blood pressure 108 mm[Hg] MD Stanley Emerson Work Phone: [facility] 05-22-2022 06:02-0500 Body weight 88.8 kg MD Stanley Emerson Work Phone: [facility] 05-21-2022 11:48-0500 63 1 Stanley Emerson Work Phone: [facility] 250 DO Work Phone: Comment on above: [id number] 05-17-2022 12:08-0500 Body height 187.96 cm MD Stanley Emerson Work Phone: [facility] Encounters Encounter Date Encounter Type Care Provider Facility Start: 04-06-2024 End: 04-06-2024 ambulatory Katia JACOBS Facility:[facility] Start: 04-06-2024 End: 04-06-2024 Lab Drop off Katia JACOBS [facility] Start: 04-06-2024 End: 04-06-2024 ambulatory Katia JACOBS Facility:[facility] Start: 04-06-2024 End: 04-06-2024 Patient encounter procedure Katia JACOBS [facility] Start: 04-01-2024 End: 04-01-2024 Telephone encounter Betty Cohen MA [facility] 100 Comment on above: Care Coordination Start: 03-23-2024 End: 03-23-2024 Clinisync Result Encounter Generic External Data Provider N[facility] External Department Unsolicited Start: 03-23-2024 End: 03-23-2024 Clinisync Result Encounter Generic External Data Provider [facility] External Department Unsolicited Start: 03-18-2024 End: 03-18-2024 Bamboo flowsheet Stanley Emerson MD Work Phone: [facility] 100 Start: 03-18-2024 End: 03-18-2024 Bamemily flowsheet Stanley Emerson MD Work Phone: [facility] 100 Start: 03-18-2024 End: 03-18-2024 Office outpatient visit 15 minutes Stanley Emerson MD Work Phone: [facility] 100 Comment on above: Pneumonia of right l ower lobe due to infectious organism Start: 03-18-2024 End: 03-18-2024 ambulatory STANLEY EMERSON Not Available Start: 03-08-2024 End: 03-08-2024 Patient encounter procedure MD Stanley Emerson Work Phone: [facility] Urgent Care Tom Work Phone: Start: 03-08-2024 End: 03-08-2024 ambulatory MD Stanley Emerson Work Phone: [facility] Work Phone: Start: 03-04-2024 End: 03-04-2024 Clinisync Result Encounter Generic External Data Provider NOMS External Department Unsolicited Start: 03-04-2024 End: 03-04-2024 Clinisync Result Encounter Generic External Data Provider N[facility]S External Department Unsolicited Start: 03-02-2024 End: 03-02-2024 ambulatory Blanca X Orzech Facility:[facility] Start: 03-02-2024 End: 03-02-2024 Patient encounter procedure Blanca X Orzech [facility] [place] Start: 02-24-2024 End: 02-24-2024 [facility] Comment on above: Paroxysmal atrial fi brillation (Multi) Start: 02-24-2024 End: 02-24-2024 ambulatory [facility] Start: 02-17-2024 End: 02-17-2024 ambulatory STANLEY EMERSON Not Available Start: 02-17-2024 End: 02-17-2024 Office outpatient visit 15 minutes Stanley Emerson MD Work Phone: [facility] 100 Comment on above: Pneumonia of left lo wer lobe due to infectious organism (Primary Dx); Simple chronic bronchitis (CMS/HCC) Start: 02-10-2024 End: 02-10-2024 ambulatory [facility] Ambulatory Start: 02-04-2024 End: 02-04-2024 ambulatory MD Stanley Emerson Work Phone: [facility] Work Phone: Start: 02-04-2024 End: 02-04-2024 Patient encounter procedure MD Stanley Emerson Work Phone: [facility] Work Phone: Start: 01-29-2024 End: 01-29-2024 ambulatory STANLEY EMERSON Not Available Start: 01-23-2024 Non-patient / Non-visit MD Kai Emerson Work Phone: [facility] Work Phone: Start: 01-20-2024 ambulatory Blanca X Orzech Facilit y:[facility] Start: 01-16-2024 Non-patient / Non-visit MD Kai Emerson Work Phone: [facility] Work Phone: Start: 01-16-2024 Non-patient / Non-visit MD Kai Emerson Work Phone: [facility] Pulmonary Disease Work Phone: Start: 01-16-2024 End: 01-23-2024 Evaluation and management of inpatient MD Stanley Emerson Work Phone: [facility] [place] [facility] Work Phone: Start: 01-14-2024 Non-patient / Non-visit MD Kai Emerson Work Phone: [facility] Gastroenterology Work Phone: Start: 01-14-2024 End: 01-14-2024 Admission to same day surgery center MD Stanley Emerson Work Phone: [facility] Work Phone: Start: 01-14-2024 End: 01-14-2024 ambulatory MD Stanley Emerson Work Phone: [facility] Work Phone: Start: 12-26-2023 End: 12-26-2023 Patient encounter procedure MD Stanley Emerson Work Phone: [facility] Start: 12-26-2023 End: 12-26-2023 ambulatory MD Stanley Emerson Work Phone: [facility] Work Phone: Start: 12-25-2023 End: 12-25-2023 ambulatory Fabi Gomez Facility:[facility] Start: 12-25-2023 End: 12-25-2023 Patient encounter procedure Fabi Gomez [facility] Start: 11-19-2023 End: 11-19-2023 ambulatory STANLEY EMERSON Not Available Start: 11-04-2023 End: 11-04-2023 ambulatory Blanca X Orzech [facility] Start: 11-04-2023 End: 11-04-2023 Patient encounter procedure Blanca X Orzech [facility] [place] Start: 10-22-2023 End: 10-22-2023 ambulatory MD Stanley Emerson Work Phone: [facility] Work Phone: Start: 10-22-2023 End: 10-22-2023 Patient encounter procedure MD Stanley Emerson Work Phone: [facility] Nephrology Work Phone: Start: 10-16-2023 Non-patient / Non-visit MD Kai Emerson Work Phone: [facility] Work Phone: Start: 10-07-2023 End: 10-07-2023 ambulatory Katia JACOBS Facility:[facility] Start: 10-07-2023 End: 10-07-2023 Patient encounter procedure Katia JACOBS [facility] Start: 10-06-2023 End: 10-06-2023 ambulatory STANLEY EMERSON Not Available Start: 10-03-2023 End: 10-03-2023 Lab Drop off Katia JACOBS [facility] Start: 10-03-2023 End: 10-03-2023 ambulatory Katia JACOBS Facility:[facility] Start: 10-03-2023 End: 10-03-2023 Patient encounter procedure Katia JACOBS [facility] Start: 09-30-2023 Non-patient / Non-visit MD Kai Emerson Work Phone: [facility] Work Phone: Start: 09-18-2023 Bradyarrhythmia MD Stanley billingsley Work Phone: [facility] Start: 09-18-2023 End: 09-18-2023 ambulatory MD Stanley Emerson Work Phone: [facility] Work Phone: Start: 09-18-2023 End: 09-18-2023 Patient encounter procedure MD Stanley Emerson Work Phone: [facility] Vascular Surgery Work Phone: Start: 09-11-2023 End: 09-11-2023 ambulatory Katia JACOBS Facility:[facility] [place] Start: 09-11-2023 End: 09-11-2023 Patient encounter procedure Katia JACOBS [facility] Start: 08-18-2023 End: 08-18-2023 Patient encounter procedure MD Stanley Emerson Work Phone: [facility] [place] Work Phone: Start: 08-18-2023 End: 08-18-2023 ambulatory MD Stanley Emerson Work Phone: [facility] Work Phone: Start: 08-15-2023 End: 08-15-2023 ambulatory Katia JACOBS Facility:[facility] [place] Start: 08-15-2023 End: 08-15-2023 Patient encounter procedure Katia JACOBS [facility] Start: 08-04-2023 End: 08-04-2023 ambulatory EDRENÉ J HEMEYER Not Available Start: 07-01-2023 End: 07-01-2023 ambulatory Katia Isabel JACOBS Facility:[facility] Start: 06-30-2023 End: 06-30-2023 ambulatory Katia Isabel JACOBS Facility: [facility] Start: 06-30-2023 End: 06-30-2023 Patient encounter procedure Katia Isabel ARLENE [facility] Start: 06-16-2023 End: 06-16-2023 ambulatory Katia Isabel ARLENE Facility: [place] Start: 06-16-2023 End: 06-16-2023 Patient encounter procedure Katia R JACOBS [facility] Start: 06-10-2023 End: 06-10-2023 ambulatory Katia R JACOBS Facility:[facility] Start: 06-10-2023 End: 06-10-2023 Patient encounter procedure Katia JACOBS [facility] Start: 05-28-2023 End: 05-28-2023 ambulatory EDRENÉ J HEMEYER Not Available Start: 05-12-2023 End: 05-12-2023 ambulatory EDWARD J HEMEYER Not Available Start: 05-06-2023 End: 05-06-2023 ambulatory Azcelestino Bakcatherines Other [employer] Other Start: 05-06-2023 Telephone encounter Azcelestino Bakhous [facility] Start: 04-16-2023 End: 04-16-2023 ambulatory Aziz Bakhous Other [employer] Other Start: 04-16-2023 Telephone encounter Azcelestino Bakhous [facility] Start: 04-15-2023 End: 04-15-2023 ambulatory Celia Griffin Other [facility] [employer] Other Start: 04-15-2023 Office outpatient vi sit 25 minutes Celia Griffin [facility] Nephrology Start: 04-08-2023 End: 04-08-2023 ambulatory MD Stanley Emerson Work Phone: [facility] Work Phone: Start: 04-08-2023 End: 04-08-2023 Patient encounter procedure MD Stanley Emerson Work Phone: [facility] Start: 03-11-2023 End: 03-11-2023 Lab Drop off Katia JACOBS [facility] Start: 03-11-2023 End: 03-11-2023 Patient encounter procedure Katia JACOBS [facility] Start: 01-22-2023 Office outpatient vi sit 25 minutes Stanley Emerson Work Phone: [place] [address] DO Work Phone: Start: 01-22-[address] Teo Al Facility: Start: 12-25-2022 End: 12-25-2022 Patient encounter procedure Katia JACOBS [facility] Start: 12-10-2022 End: 12-10-2022 Lab Drop off Katia JACOBS [facility] Start: 12-10-2022 End: 12-10-2022 Patient encounter procedure Katia JACOBS [facility] Start: 10-04-2022 End: 10-04-2022 Patient encounter procedure Katia JACOBS [facility] Start: 09-18-2022 End: 09-18-2022 Patient encounter procedure Katia JACOBS [facility] Start: 09-15-2022 End: 09-15-[address] STANLEY EMERSON . Facility:[facility] Start: 09-12-2022 End: 09-12-[address] STANLEY EMERSON . Facility:[facility] Start: 09-08-2022 Encounter for preprocedural laboratory examination CELIA GRIFFIN [facility] Start: 09-04-2022 End: 09-05-[address] STANLEY EMERSON . Facility:[facility] Start: 09-04-2022 Encounter for preprocedural cardiovascular examination DR KATIA JACOBS . [facility] Start: 09-02-2022 End: 09-03-[address] STANLEY EMERSON . Facility:[facility] Start: 09-02-2022 End: 09-03-2022 Encounter for preprocedural laboratory examination DR STANLEY EMERSON . Facility:[facility] Start: 09-02-2022 End: 09-03-[address] STANLEY EMERSON . Facility:[facility] Start: 09-02-2022 End: 09-03-2022 Encounter for preprocedural cardiovascular examination DR STANLEY EMERSON . Facility:[facility] Start: 08-21-2022 End: 08-21-2022 ambulatory Carlene Kasper Other [employer] Other Start: 08-21-2022 Follow-up encounter Carlene Dickerson [facility] Start: 08-16-2022 End: 08-16-2022 ambulatory MD Stanley Emerson Work Phone: [facility] Work Phone: Start: 08-16-2022 End: 08-16-2022 Patient encounter procedure MD Stanley Emerson Work Phone: [facility] [place] Work Phone: Start: 07-31-2022 End: 07-31-2022 Patient encounter procedure Katia JACOBS [facility] Start: 07-25-2022 End: 07-25-2022 ambulatory Margarito Valentine Other [employer] Other Start: 07-25-2022 Postop follow up vis it related to original px Margarito Valentine [facility] Start: 07-24-2022 End: 07-24-2022 ambulatory MD Stanley Emerson Work Phone: [facility] Work Phone: Start: 07-24-2022 End: 07-24-2022 Patient encounter procedure MD Stanley Emerson Work Phone: [facility] [place] Work Phone: Start: 07-02-2022 End: 07-03-2022 Evaluation and management of inpatient MD Stanley Emerson Work Phone: [facility] Work Phone: Start: 06-21-2022 End: 06-21-2022 Patient encounter procedure MD Stanley Emerson Work Phone: [facility] Work Phone: Start: 06-19-2022 End: 06-19-2022 ambulatory Margarito Valentine Other [employer] Other Start: 06-19-2022 Office outpatient vi sit 25 minutes Margarito Valentine [facility] Start: 06-12-2022 End: 06-12-2022 ambulatory MD Stanley Emerson Work Phone: [facility] Work Phone: Start: 06-12-2022 End: 06-12-2022 Patient encounter procedure MD Stanley Emerson Work Phone: [facility] [place] Work Phone: Start: 06-11-2022 End: 06-11-2022 Patient encounter procedure HEATHER OMALLEY [facility] Start: 06-06-2022 End: 06-06-2022 ambulatory Margarito Valentine Other [facility] [employer] Other Start: 06-06-2022 Office outpatient vi sit 25 minutes Margarito Valentine [facility] Start: 06-04-2022 End: 06-04-2022 ambulatory Celia Griffin Other [employer] Other Start: 06-04-2022 Office outpatient vi sit 25 minutes Celia Griffin [facility] Start: 06-03-2022 Office outpatient vi sit 25 minutes Stanley Emerson Work Phone: [facility] 250 DO Work Phone: Start: 06-03-[address] Stanley Emerson Facility:[id number] Start: 05-21-[address] Stanley Emerson Facility:[id number] Start: 05-20-[address] Stanley Emerson Facility:[id number] Start: 05-19-[address] Teo Al Facility:[id number] Start: 05-18-[address] Teo Al Facility:[id number] Start: 05-17-[address] Stanley Emerson Facility:[id number] Start: 05-17-2022 Bradyarrhythmia MD Stanley billingsley Work Phone: [facility] Start: 05-17-[address] Teo Al Facility:[id number] Start: 05-16-2022 End: 05-22-2022 Encounter for preprocedural cardiovascular examination MD Stanley Emerson Work Phone: [facility] Start: 05-16-2022 End: 05-22-2022 Evaluation and management of inpatient MD Stanley Emerson Work Phone: [facility] [place] [facility] Work Phone: Start: 05-16-2022 End: 05-16-[address] STANLEY EMERSON . Facility:[facility] Start: 05-15-2022 End: 05-16-[address] STANLEY EMERSON . Facility:[facility] Start: 01-04-2022 End: 01-04-[address] STANLEY EMERSON . Facility: Patient encounter status [facility] Emerson [facility] Work Phone: End: 01-22-2023 Patient encounter status Stanley Emerson Work Phone: [facility] 250 DO Work Phone: Procedures Date Procedure Procedure Detail Performing Clinician Start: 04-06-2024 Flexible cystoscopy [facility] desi JACOBS Start: 03-23-2024 ALL HEMOGLOBIN Generic External Data Provider Start: 03-08-2024 Quick Strep (POC) Ed boston Idania Work Phone: Start: 03-08-2024 Plain chest X-ray Ed boston Idania Work Phone: Start: 03-04-2024 ALL HEMOGLOBIN Generic External Data Provider Start: 01-23-2024 Bacteria identified in Urine by Culture MD Stanley Emerson Work Phone: Start: 01-23-2024 Urine culture MD Stanley Emerson Work Phone: Start: 01-17-2024 Bacteria identified in Urine by Culture MD Stanley Emerson Work Phone: Start: 01-17-2024 Urine culture MD Stanley Emerson [...] Treatment Date Care Activity Detail Author Start: 01-15-2025 Echocardiography Echocardiogram [facility] Start: 10-05-2024 ambulatory Ambulatory Facility:[facility] Start: 05-06-2024 ambulatory Ambulatory Facility:[facility] [place] Start: 05-06-2024 End: 05-06-2024 Patient encounter procedure [facility] 100 Start: 04-12-2024 End: 04-12-2024 Patient encounter procedure 04/12/2024 3:20 PM EST Office Visit [facility] [address] [facility] [address] [place] [address] Teo Al MD [address] [facility] [address], [facility] [address] [place] [address] [facility] Start: 03-18-2024 End: 03-18-2024 Patient encounter procedure 03/18/2024 11:30 AM EDT Office Visit [facility] [address] [facility] [address] [place] [address] Stanley Emerson MD [address] [facility] [place] [address] (Fax) Pneumonia of right lower lobe due to infectious organism [facility] 100 Comment on above: Pneumonia of right l ower lobe due to infectious organism Start: 03-08-2024 Plain chest X-ray XR chest 2V* [facility] Start: 01-25-2024 COVID-19 Vaccine ( season) COVID-19 Vaccine ( season) [facility] Start: 01-25-2024 Influenza vaccination Influenza Vacc ine (#1) [facility] Start: 01-23-[address] [facility] Start: 01-23-2024 Bacteria identified in Urine by Culture [facility] Start: 01-22-2024 Referral to clinical metal or wood blocker [facility] Start: 01-22-2024 Referral to rehabili tation physician [facility] Start: 01-21-2024 FUV, Provider: Teo Al, Status: Pen, Time: 11:50 AM FUV, Provider: Teo Al, Status: Pen, Time: 11:50 AM [place] [address] DO Work Phone: Start: 01-16-2024 Dilation of Coronary Artery, One Artery with Drug-eluting Intraluminal Device, Percutaneous Approach Dilation of Coronary Artery, One Artery with Drug-eluting Intraluminal Device, Percutaneous Approach [facility] Start: 01-16-2024 Fluoroscopy of Left Heart using Low Osmolar Contrast Fluoroscopy of Left Heart using Low Osmolar Contrast [facility] Start: 01-16-2024 Fluoroscopy of Multi ple Coronary Arteries using Low Osmolar Contrast Fluoroscopy of Multiple Coronary Arteries using Low Osmolar Contrast [facility] Start: 01-16-2024 Measurement of Cardi ac Sampling and Pressure, Left Heart, Percutaneous Approach Measurement of Cardiac Sampling and Pressure, Left Heart, Percutaneous Approach [facility] Start: 01-16-2024 Hospital admission [facility] Start: 01-16-2024 Referral to cardiac rehabilitation program [facility] Start: 01-16-[address] [facility] Start: 01-14-[address] [facility] Start: 04-08-2023 Bacteria identified in Urine by Culture [facility] Start: 12-10-2022 FUV, Provider: Teo Al, Status: Pen, Time: 10:10 AM FUV, Provider: Teo Al, Status: Pen, Time: 10:10 AM [facility] Mosher DO Work Phone: Start: 07-24-2022 MR Abdomen WO and W contrast IV [facility] Start: 07-24-2022 MRI of abdomen with contrast MR abdomen wo/w con [facility] Start: 07-03-[address] [facility] Start: 07-02-2022 Fluoroscopy of Aorta and Bilateral Lower Extremity Arteries using Low Osmolar Contrast Fluoroscopy of Aorta and Bilateral Lower Extremity Arteries using Low Osmolar Contrast [facility] Start: 07-02-2022 Restriction of Abdom inal Aorta with Intraluminal Device, Percutaneous Approach Restriction of Abdominal Aorta with Intraluminal Device, Percutaneous Approach [facility] Start: 05-22-[address] [facility] Start: 05-20-2022 Evaluation procedure [facility] Start: 05-19-[address] [facility] Start: 05-17-2022 End: 05-17-[address] [facility] Start: 05-16-2022 Referral to cooler worker [facility] Start: 05-16-2022 Referral to vascular surgeon [facility] Start: 05-16-2022 Hospital admission [facility] Start: 2003 RSV patient s and/or patients aged 60+ years (1 - 1-dose 60+ series) RSV patients and/or patients aged 60+ years (1 - 1-dose 60+ series) [facility] Start: 11-30-1993 Zoster Vaccines (1 of 2) Zoste r Vaccines (1 of 2) [facility] Start: 11-30-1965 DTaP/Tdap/Td Vaccine s (1 - Tdap) DTaP/Tdap/Td Vaccines (1 - Tdap) [facility] Start: 11-30-1962 Urine screening for protein CKD: Urine Protein Screening [facility] Start: 11-30-1961 Diabetes mellitus screening Diabetes Screening [facility] Start: 1945 Creatinine measurement Creatinine Le diamond [facility] Start: 1943 Lipid panel Lipid Panel [facility] Start: 1943 Medicare Annual Well ness Visit Medicare Annual Wellness Visit (AWV) [facility] Start: 1943 Potassium measurement Potassium Leve l [facility] Start: 1943 Thyroid stimulating hormone measurement TSH Level [facility] ECG 12 Lead ECG 12 Lead ECG Routine Paroxysmal atrial fibrillation (Multi) 02/24/2024 2:45 PM EDT [facility] Service Area Work Phone: Patient Education [facility] Work Phone: Patient referral [facility] Work Phone: Renal function 1999 panel - Serum or Plasma [facility] Renal function 1999 panel - Serum or Plasma [facility] US Thoracic and abdo arturo aorta [facility] XR Chest 2 Views [facility] Immunizations Immunization Date Immunization Notes Care Provider Markus brooke 03-19-2024 influenza virus vacc ine, unspecified formulation Katia JACOBS [facility] 03-19-2024 influenza, seasonal, injectable Generic Provider [facility] 03-19-2024 Pfizer Purple Cap SARS-CoV-2 Vaccination Generic Provider [facility] 05-28-2023 Pneumococcal Conjuga te PCV 20 Stanley Emerson MD Work Phone: [facility] 03-26-2023 Influenza, Seasonal, Quadrivalent, Adjuvanted [facility] Work Phone: 03-26-2023 influenza virus vacc ine, unspecified formulation [facility] 02-16-2023 SARS-COV-2 (COVID-19 ) vaccine, mRNA, spike protein, LNP, PF, valente-sucrose, 30 mcg/0.3 mL Stanley Emerson MD Work Phone: [facility] 05-20-2022 influenza, high dose seasonal, preservative-free [facility] Work Phone: 03-29-2022 Moderna Bivalent Connell ster Vaccination Stanley Emerson MD Work Phone: [facility] 03-29-2022 Pfizer COVID-19 Vac Bivalent 30 MCG/0.3ML Intramuscular Suspension Stanley Emerson Work Phone: [facility] 03-16-2022 influenza virus vacc ine, unspecified formulation Katia JACOBS [facility] 03-16-2022 influenza, seasonal, injectable Stanley Emerson Work Phone: [place] [address] DO Work Phone: 03-06-2022 Fluzone High-Dose Quadrivalent 0.7 ML Intramuscular Suspension Prefilled Syringe Stanley Emerson Work Phone: [facility] 250 DO Work Phone: 03-06-2022 influenza virus vacc ine, unspecified formulation HEATHER OMALLEY [facility] 10-03-2021 Comirnaty 30 MCG/0.3 ML Intramuscular Suspension Stanley Emerson Work Phone: [facility] 250 DO Work Phone: 10-03-2021 COVID-19 mRNA, Taniya wright (Pfizer) MD Stanley Emerson Work Phone: [facility] 10-03-2021 SARS-CoV-2 mRNA (saooibpehyl-fwqv-glwldl e) vaccine HEATHER JOSSELIN [facility] 10-03-2021 SARS-CoV-2, Unspecified Jesus Emerson MD Work Phone: [facility] 04-23-2021 pneumococcal polysaccharide vaccine, 23 valent Stanley Emerson Work Phone: [facility] 02-22-2021 influenza virus vacc ine, unspecified formulation Katia JACOBS [facility] 02-22-2021 influenza, injectabl e, quadrivalent, preservative free Stanley Emerson Work Phone: [facility] 250 DO Work Phone: 02-21-2021 Pfizer-BioNTech COVI D-19 Vacc 30 MCG/0.3ML Intramuscular Suspension Stanley Emerson Work Phone: [facility] Comment on above: Result Comment: 2022: [id number] 02-14-2021 influenza, high dose seasonal, preservative-free Leanne Soriano [facility] Work Phone: 07-28-2020 Pfizer-BioNTech COVI D-19 Vacc 30 MCG/0.3ML Intramuscular Suspension Stanley Emerson Work Phone: [facility] 07-07-2020 Pfizer-BioNTech COVI D-19 Vacc 30 MCG/0.3ML Intramuscular Suspension Stanley Emerson Work Phone: [facility] 02-22-2020 influenza virus vacc ine, unspecified formulation HEATHERMERCEDES OMALLEY [facility] 02-22-2020 influenza, injectabl e, quadrivalent, preservative free Stanley Emerson MD Work Phone: [facility] 02-22-2020 Seasonal, quadrivale nt, recombinant, injectable influenza vaccine, preservative free Stanely Emerson Work Phone: [facility] 250 DO Work Phone: Payers Date Payer Category Payer Self-pay 2022 Medicare [id number] 2015 Private Health Insurance [id number] 2010 Medicare [id number] .[id number] 1959 Medicare [id number] 1959 Private Health Insurance [id number] 1943 Unknown [id number] 2.840.1.887688.3.579.2.593 1943 Unknown [id number] 2.840.1.759138.3.579.2.593 1943 Unknown [id number] 2.840.1.872887.3.579.2.593 1943 Unknown [id number] 2.840.1.352147.3.579.2.593 1943 Unknown [id number] 2.840.1.429276.3.579.2.593 1943 Unknown [id number] 2.840.1.148038.3.579.2.593 1943 Unknown [id number] 2.840.1.858260.3.579.2.593 1943 Unknown [id number] 2.16840.1.997813.3.579.2.593 1943 Unknown [id number] 2.16840.1.251156.3.579.2.356 1943 Unknown [id number] 2.16840.1.359951.3.579.2.356 1943 Unknown [id number] 2.840.1.173076.3.579.2.356 1943 Unknown [id number] 2.16.840.1.185554.3.579.2.356 -194 Unknown [id number] 2.16.840.1.964768.3.579.2.356 -194 Unknown [id number] 2.16.840.1.942495.3.579.2.356 194 Unknown [id number] 2.16.840.1.739780.3.579.2.356 -194 Unknown [id number] 2.16.840.1.378379.3.579.2.356 -194 Unknown [id number] 2.16.840.1.412141.3.579.2.125 9 -194 Unknown [id number] 2.16.840.1.531625.3.579.2.125 9 -194 Unknown [id number] 2.840.1.817034.3.579.2.125 9 -194 Unknown [id number] 2.16.840.1.456120.3.579.2.125 9 -194 Unknown [id number] 2.16.840.1.532707.3.579.2.125 9 -194 Unknown [id number] 2.16.840.1.440726.3.579.2.125 9 194 Unknown [id number] 2.16.840.1.923547.3.579.2.125 9 -194 Unknown [id number] 2.16.840.1.321451.3.579.2.125 9 -194 Unknown [id number] 2.16.840.1.624819.3.579.2.727 1943 Unknown [id number] 2.16.840.1.719039.3.579.2.727 194 Unknown [id number] 2.16.840.1.775674.3.579.2.727 1944 Unknown [id number] 2.16.840.1.986172.3.579.2.727 1943 Unknown [id number] 2.16.840.1.126100.3.579.2.727 1943 Unknown [id number] 2.16.840.1.965622.3.579.2.727 1943 Unknown [id number] 2.16.840.1.649051.3.579.2.727 1943 Unknown [id number] 2.16.840.1.208499.3.579.2.727 1943 Unknown [id number] 2.16.840.1.136403.3.579.2.727 1943 Unknown [id number] 2.16.840.1.147247.3.579.2.727 1943 Unknown [id number] 2.16.840.1.836605.3.579.2.124 4 194 Unknown [id number] 2.16.840.1.910118.3.579.2.124 4 1943 Unknown [id number] 2.16.840.1.352988.3.579.2.727 1943 Unknown [id number] 2.16.840.1.060877.3.579.2.727 1943 Unknown [id number] 2.16.840.1.627159.3.579.2.727 1943 Unknown [id number] 2.16.840.1.088883.3.579.2.727 1943 Unknown [id number] 2.16.840.1.695554.3.579.2.727 194 Unknown [id number] 2.16.840.1.221556.3.579.2.727 1943 Unknown [id number] 2.16.840.1.209106.3.579.2.727 Medicare Medicare Nonpatient [id number] Unknown Unknown O [id number] Unknown [id number] 2.16.840.1.745337.3.579.2.531 Unknown [id number] 2.16.840.1.194657.3.579.2.531 Unknown [id number] 2.16.840.1.140419.3.579.2.531 Unknown [id number] 2.16.840.1.255799.3.579.2.531 Unknown [id number] 2.16.840.1.962283.3.579.2.531 Social History Date Type Detail Facility Start: 12-31-2023 End: 02-10-2024 Daily caffeine consumption Daily caffeine consumption [facility] 250 DO Work Phone: Comment on above: 3-4 cups coffee kellen y; 05/17/23 quit; 1/2 dozen cigarettes ; Start: 06-11-2022 End: 04-06-2024 Tobacco smoking status Heavy tobacco smoker (finding) [facility] Start: 12-31-2023 End: 02-10-2024 Sex Assigned At Male [facility] Start: 12-31-1965 End: 01-23-2024 Tobacco smoking status NHIS Smoker (finding) [facility] Start: 1945 Sex Assigned At Male [facility] Start: 07-02-2022 End: 01-29-2024 Tobacco smoking status NHIS Ex-smoker (finding) [facility] Tobacco smoking status Never [facility] Start: 12-31-1965 History of tobacco use Cigarette Smo [facility] Work Phone: Start: 01-29-2024 End: 02-10-2024 Tobacco use and exposure Smokeless tobacco non-user [facility] Work Phone: Start: 02-24-2024 End: 03-18-2024 Alcoholic beverage intake Lifetime non-drinker (finding) [facility] Work Phone: Start: 1945 [facility]: Start: 02-14-2024 End: 02-24-2024 Exposure to SARS-CoV-2 (event) Not sure [facility] Within the last year , have you been afraid of your partner or ex-partner? No [facility] Are you now , , , , never or living with a partner? [facility] How often to you hav e a drink containing alcohol? Never [facility] Do you feel stress - tense, restless, nervous, or anxious, or unable to sleep at night because your mind is troubled all the time - these days [OSQ] To some extent [facility] (I/We) worried wheth er (my/our) food would run out before (I/we) got money to buy more. Never true [facility] Medical Equipment Procedure Code Equipment Code Equipment Origin al Text Equipment Identifier Dates Percutaneous endovascular repair of abdominal aortic aneurysm (AAA) Abdominal aorta endovascular stent-graft ()[id number] FDA Start: 07-02-2022 Percutaneous endovascular repair of abdominal aortic aneurysm (AAA) Abdominal aorta endovascular stent-graft ()[id number] FDA Start: 07-02-2022 Percutaneous endovascular repair of abdominal aortic aneurysm (AAA) Abdominal aorta endovascular stent-graft ()[id number] FDA Start: 07-02-2022 Percutaneous endovascular repair of abdominal aortic aneurysm (AAA) Soft-tissue/mesh anchor, non-bioabsorbable ()[id number] FDA Start: 07-02-2022 CL STENT JERZY FRONTIER 3.0 X 38 FDA Start: 01-16-2024 CL STENT JERZY FRONTIER 3.0 X 38 FDA Start: 01-16-2024 CL STENT JERZY FRONTIER 3.0 X 38 FDA Start: 01-16-2024 CL STENT JERZY FRONTIER 3.0 X 38 FDA Start: 01-16-2024 Goals Date Patient Goal Desired Activity /State Functional Status Date Assessment Result Facility 04-06-2024 Functional Status N/A [facility] 01-23-2024 Functional status Patient at [facility] Work Phone: 10-03-2023 Functional Status N/A [facility] 06-30-2023 Functional Status N/A [facility] 06-10-2023 Functional Status N/A [facility] 03-11-2023 Functional Status N/A [facility] 12-10-2022 Functional Status N/A [facility] 09-18-2022 Functional Status N/A [facility] 07-31-2022 Functional Status N/A [facility] 07-03-2022 Functional status Patient at [facility] Work Phone: 06-11-2022 Functional Status N/A [facility] 05-16-2022 Functional status Patient Not at [facility] Work Phone: Mental Status Date Assessment Result Facility 01-23-2024 Cognitive function Cognitive Sta tus Patient is Progressing Toward [facility] Work Phone: 07-03-2022 Cognitive function Cognitive Sta tus Patient at Baseline [facility] Work Phone: 05-16-2022 Cognitive function Cognitive Sta tus Patient at [facility] Work Phone: Clinical Notes 06-04-2022 to 04-06-2024 Telephone Encounter - Stanley Emerson MD - 04/01/2024 10:59 AM ESTTelephone Encounter - Betty Cohen MA - 04/01/2024 10:26 AM ESTTelephone Encounter - Stanley Emerson MD - 04/01/2024 10:59 AM EST Note Date & Type Note Facility 04-06-2024 Hospital Discharg e instructions Patient Education 04/06/2024 11:31:42 Indwelling Urinary Catheter Insertion, Care After Indwelling Urinary Catheter Insertion, Care After This sheet gives you information about how to care for yourself after your procedure. Your health care provider may also give you more specific instructions. If you have problems or questions, contact your health care provider. What can I expect after the procedure? After the procedure, it is common to have: Slight discomfort around your urethra where the catheter enters your body. Follow these instructions at home: General instructions Keep the drainage bag at or below the level of your bladder. By doing this, your urine can only drain out instead of going back into your body. Secure the catheter tubing and drainage bag to your leg or thigh to keep it from moving. Check the catheter tubing regularly to make sure there are no kinks or blockages. Take showers daily to keep the catheter clean. Do not take a bath. Do not pull on your catheter. Disconnect the tubing and drainage bag as little as possible. Empty the drainage bag every 2 4 hours, or more often if needed. Do not let the bag get completely full. Wash your hands with soap and water before and after touching the catheter, tubing, or drainage bag. Do not let the drainage bag or catheter tubing touch the floor. Drink enough fluids to keep your urine pale yellow, or as told by your health care provider. How to remove the catheter Remove the catheter only if told by your health care provider. Follow instructions from your health care provider about when and how to remove the catheter. For most catheters, you will need to take the following steps: 1.Prepare your supplies. You will need a: Syringe. This would be given to you by your health care provider. Towel. Wastebasket. 2.Empty the drainage bag if needed. 3.Wash your hands with soap and warm water. 4.Remove the tape that secures the catheter to your leg or thigh. 5.Get into a comfortable position, such as: Lying down with your head raised on pillows and your knees pointing to the ceiling. Sitting on a chair or the edge of a bed. 6.Place the towel under you to catch any spilled urine. 7.Put the syringe into the balloon port of the catheter. Use a firm push and twist motion to fit the syringe into the balloon port. 8.The water from the balloon will empty into the syringe. 9.Gently pull out the catheter once the balloon is empty. If the catheter doesn't slide easily, do not use force. Let your health care provider know that you are not able to remove the catheter. 10.Throw the used catheter and the syringe in the wastebasket. 11.Wipe any spilled urine or water with the towel. 12.Wash your hands with soap and warm water. Safety Let your health care provider know if: Your bladder is full, but you are not able to urinate. You have removed the catheter, but you are not able to urinate after 8 hours. Contact a health care provider if: Your urine: ?Looks cloudy. ?Has a bad smell. ?Stops flowing into the drainage bag. Your catheter: ?Gets clogged. ?Starts to leak. You feel pain or pressure in the bladder area. You have back pain. Your drainage bag or tubing looks dirty. Get help right away if: You have a fever or chills. You have severe pain in your back or your lower abdomen. You have warmth, redness, swelling, or pain in the urethra area. You notice blood in your urine. Your catheter gets pulled out. Summary Wash your hands with soap and water before and after touching the catheter, tubing, or drainage bag. Do not pull on your catheter or try to remove it. Keep the drainage bag at or below the level of your bladder, but do not let the drainage bag or catheter tubing touch the floor. Get help right away if you have a fever, chills, or any other signs of infection. This information is not intended to replace advice given to you by your health care provider. Make sure you discuss any questions you have with your health care provider. Document Revised: 08/01/2021 Document Reviewed: 04/27/2021 [employer] Patient Education 2021 [employer] 04/06/2024 11:28:52 Cancer Screening for Males Cancer Screening for Males A cancer screening is a test or exam that checks for cancer. Work with your health care provider to create a cancer screening schedule that protects your health. Who should have screening? All people who are male should be considered for screening of certain cancers, including colorectal cancer, prostate cancer, lung cancer, and skin cancer. Your health care provider may recommend screenings for other types of cancer if: You have had cancer before. You have a family member with cancer. You have genes that could increase the risk of cancer. You have risk factors for certain cancers, such as current or past use of tobacco products or being overweight. What are the benefits of screening? Cancer screening is done to look for cancer in the very early stages, before it spreads and becomes harder to treat and before you would start to notice symptoms. Finding cancer early improves the chances of successful treatment. It may save your life. When should I be screened for cancer? When you should be screened for cancer depends on: Your age. Your medical history and your family's medical history. Certain lifestyle factors, such as smoking or other use of tobacco products. Environmental exposure, such as to asbestos. How is screening done? Colorectal cancer Colorectal cancer screening looks for cancer or for growths called polyps that often form before cancer starts. Tests to look for cancer or polyps include: Colonoscopy or flexible sigmoidoscopy. For these procedures, a flexible tube with a small camera is inserted into the rectum. CT colonography. This test uses X-rays and a contrast dye to check the colon for polyps. Tests to look for cancer in the stool (feces) include: Guaiac-based fecal occult blood test (FOBT). This test can find blood in stool. It can be done at home with a kit. Fecal immunochemical test (FIT). This test can find blood in stool. For this test, you will need to collect stool samples at home. Stool DNA test. This test looks for blood in stool and any changes in DNA that can lead to colon cancer. For this test, you will need to collect a stool sample at home and send it to a lab. All adults should have screenings starting at 45 years old and continuing through 75 years old. For males 76 85 years old, the decision to be screened should be based on a person's preferences, life expectancy, overall health, and prior screening history. Your health care provider may recommend screening before 45 years old. You will have tests every 1 10 years, depending on your results and the type of screening test. People at increased risk should start screening at an earlier age. Talk with your health care provider about which screening test is right for you and how often you should be screened. Prostate cancer Prostate cancer screening is done with blood tests and a digital rectal exam. During this exam, a health care provider uses a gloved finger to check prostate size. You may need to be screened for prostate cancer if: You have risk factors for prostate cancer, such as being an person or having a close family member with [...] on the results of your blood tests. Prostate cancer screening for males with average risk may start at 50 years old. Males with risk factors may need to be screened earlier, at 40 45 years old. Talk with your health care provider about whether screening is right for you and, if so, how often you should be screened. Lung cancer Lung cancer screening is done [...] packs a day for 10 years. You may need to be screened [...] provider right away if anything looks unusual. Males with a hywpbv-atjx-ooohaa risk for skin cancer may want to see a offender employment specialist (javascript programmer) for an annual body check. Where to find more information [place] [employer]: cancer.org Centers for Disease Control and Prevention: cdc.gov National Cancer [place]: cancer.gov Contact a health care provider if: You have concerns about any signs or symptoms of cancer. These may include: ?Skin problems. You may have: ?Moles of an unusual shape or color. ?Changes in existing moles. ?A sore on your skin that does not heal. ?Tiredness (fatigue) that does not go away. ?Losing weight without trying. ?Blood in your urine or stool. ?Problems with urination. You may have: ?Changes in urination habits. ?Painful urination. ?Painful ejaculation. ?Problems with coughing or breathing. These may include: ?Coughing or trouble breathing that does not go away. ?Coughing up blood. ?Frequent pain or cramping in your abdomen. This information is not intended to replace advice given to you by your health care provider. Make sure you discuss any questions you have with your health care provider. Document Revised: 05/20/2023 Document Reviewed: 12/02/2022 [employer] Patient Education 2023 [employer]. Follow Up Care 02/25/2024 15:13:08 With:ARLENE CASILLAS, Katia Hall, URL Address: [facility] [address] , [place] [address]- When: Unknown [facility] Dominic 04-06-2024 Note Patient Education Oncology Cancer Screening for Males A cancer screening is a test or exam that checks for cancer. Work with your health care provider to create a cancer screening schedule that protects your health. Who should have screening? All people who are male should be considered for screening of certain cancers, including colorectal cancer, prostate cancer, lung cancer, and skin cancer. Your health care provider may recommend screenings for other types of cancer if: ??? You have had cancer before. ??? You have a family member with cancer. ??? You have genes that could increase the risk of cancer. ??? You have risk factors for certain cancers, such as current or past use of tobacco products or being overweight. What are the benefits of screening? Cancer screening is done to look for cancer in the very early stages, before it spreads and becomes harder to treat and before you would start to notice symptoms. Finding cancer early improves the chances of successful treatment. It may save your life. When should I be screened for cancer? When you should be screened for cancer depends on: ??? Your age. ??? Your medical history and your family's medical history. ??? Certain lifestyle factors, such as smoking or other use of tobacco products. ??? Environmental exposure, such as to asbestos. How is screening done? Colorectal cancer Colorectal cancer screening looks for cancer or for growths called polyps that often form before cancer starts. Tests to look for cancer or polyps include: ??? Colonoscopy or flexible sigmoidoscopy. For these procedures, a flexible tube with a small camera is inserted into the rectum. ??? CT colonography. This test uses X-rays and a contrast dye to check the colon for polyps. Tests to look for cancer in the stool (feces) include: ??? Guaiac-based fecal occult blood test (FOBT). This test can find blood in stool. It can be done at home with a kit. ??? Fecal immunochemical test (FIT). This test can find blood in stool. For this test, you will need to collect stool samples at home. ??? Stool DNA test. This test looks for blood in stool and any changes in DNA that can lead to colon cancer. For this test, you will need to collect a stool sample at home and send it to a lab. All adults should have screenings starting at 45 years old and continuing through 75 years old. For males 76?85 years old, the decision to be screened should be based on a person's preferences, life expectancy, overall health, and prior screening history. Your health care provider may recommend screening before 45 years old. You will have tests every 1?10 years, depending on your results and the type of screening test. People at increased risk should start screening at an earlier age. Talk with your health care provider about which screening test is right for you and how often you should be screened. Prostate cancer Prostate cancer screening is done with blood tests and a digital rectal exam. During this exam, a health care provider uses a gloved finger to check prostate size. You may need to be screened for prostate cancer if: ??? You have risk factors for prostate cancer, such as being an person or having a close family member with prostate cancer. ??? You have had gene changes or a genetic condition that was passed on to you from a parent (inherited). These gene changes or genetic conditions include BRCA1 or BRCA2 gene mutations or Mccormack syndrome. ??? You have symptoms of prostate cancer, such as problems urinating or problems getting or keeping an erection (erectile dysfunction). When you have been screened for prostate cancer, future screening may be recommended based on the results of your blood tests. Prostate cancer screening for males with average risk may start at 50 years old. Males with risk factors may need to be screened earlier, at 40?45 years old. Talk with your health care provider about whether screening is right for you and, if so, how often you should be screened. Lung cancer Lung cancer screening is done with a CT scan that looks for abnormal changes in the lungs. Discuss lung cancer screening with your health care provider if you are 50?80 years old and if any of the following apply to you: ??? You currently smoke. ??? You used to smoke heavily. ??? You have a smoking history of 1 pack of cigarettes a day for 20 years or 2 packs a day for 10 years. You may need to be screened [...] provider right away if anything looks unusual. Males with a xthocv-rzhs-nkrxsi risk for skin cancer may want to see a offender employment specialist (dermatologi (more content not included)... [facility] 04-01-2024 Miscellaneous Notes Called and talked with Marifer. Discussed if they wanted, I would be happy to move forward and assume the , but I am not willing to back date to his December start. Marifer from [facility] called and stated that when pt was in hospital back in Dec for chest pain, stemi, Afib, Cardiomyopathy, Dr Pruett ordered and they have been out there caring for him since but she is having problems with Dr Pruett now and wanted to know if PCP could call her so she can discuss this with him and get his opinion. I put her direct line in and I told her your last patient of the morning is at 11 so maybe you could call her at 11:30. She will not be at lunch at that time. documented in this encounter [facility] 04-01-2024 Telephone encounter Note Called and talked with Marifer. Discussed if they wanted, I would be happy to move forward and assume the , but I am not willing to back date to his December start. [facility] 04-01-2024 Telephone encounter Note Marifer from [facility] called and stated that when pt was in hospital back in Dec for chest pain, stemi, Afib, Cardiomyopathy, Dr Pruett ordered and they have been out there caring for him since but she is having problems with Dr Pruett now and wanted to know if PCP could call her so she can discuss this with him and get his opinion. I put her direct line in and I told her your last patient of the morning is at 11 so maybe you could call her at 11:30. She will not be at lunch at that time. [facility] 03-18-2024 History of Presen t illness Narrative Images from the original note were not included. Patient ID: Alex Anderson is a 78 y.o. male who presents for: The patient has with them today and independent historian; His . The independent historian is here to ensure that the information related to us in the HPI and review of systems is accurate. They are also here to help the patient to understand and follow through with treatment plans established today. Pt went to on 03/08/2024 because was out of office and the family had strep throat running through the family and he was starting to not feel well. Strep, influenza and covid were all negative but the Chest XR showed RLL to mid lobe pneumonia. He was treated there and told he needed to follow up with . Overall he appears to feel better. Review of Systems Constitutional: Negative for chills and fever. HENT: Positive for congestion. Negative for ear pain, sinus pressure, sinus pain and sore throat. Respiratory: Positive for cough and wheezing. Negative for shortness of breath. Neurological: Positive for headaches. Negative for light-headedness. Objective In general the patient is pleasant and in no acute distress. Bilateral ears, canals are within normal limits. Bilateral nares demonstrate inflamed mucosa. Oropharynx has moist mucosa there is no specific evidence of thrush. There is mild erythema of the pharynx. Shoddy bilateral anterior cervical adenopathy. No signs of respiratory distress. Patient is speaking full sentences. There are diffusely decreased but symmetrical breath sounds. No rhonchi or rales are appreciated. No wheezes. Skin is warm and dry Visit Vitals Pulse 82 Ht 6' 2 Wt 223 lb SpO2 97% BMI 28.63 kg/m Smoking Status Former BSA 2.3 m No Known Allergies Current Outpatient Medications on File Prior to Visit Medication Sig Dispense Refill albuterol HFA 90 mcg/act inhaler Inhale 2 puffs every 6 (six) hours if needed for wheezing 54 g 1 amiodarone (Pacerone) 200 MG tablet Take 200 mg by mouth Daily atorvastatin (Lipitor) 80 MG tablet Take 80 mg by mouth at bedtime Brilinta 90 MG tablet Take 90 mg by mouth every 12 (twelve) hours [] doxycycline (Vibramycin) 100 MG capsule Take 100 mg by mouth in the morning and 100 mg before bedtime. Take with at least 8 ounces (large glass) of water, do not lie down for 30 minutes after. Eliquis 2.5 MG tablet Take 2.5 mg by mouth in the morning and 2.5 mg before bedtime. ferrous sulfate 325 (65 Fe) MG tablet Take 325 mg by mouth in the morning. Take with meals. FIBER ADULT GUMMIES PO Take 2 tablets by mouth Daily furosemide (Lasix) 40 MG tablet Take 40 mg by mouth in the morning. Multiple Vitamins-Minerals (Multivitamin Gummies Mens) chewable tablet Chew 1 tablet Daily nitroglycerin (Nitrostat) 0.[address] 0.4 mg under the tongue every 5 (five) minutes if needed for chest pain potassium chloride CR (Klor-Con M20) 20 MEQ ER tablet Take 20 mEq by mouth in the morning. Spacer/Aero-Holding Chambers (BreatheRite Dulce Spacer Adult) misc 2 puffs 4 (four) times a day as needed (sob and cough) 1 each 0 Spacer/Aero-Holding Chambers device every 8 (eight) hours. No current facility-administered medications on file prior to visit. 1. Pneumonia of right lower lobe due to infectious organism Resolving patient appears to be back to baseline. He has comorbid condition of COPD with emphysema appears stable. No further evaluation or treatment. documented in this encounter [facility] 02-24-2024 History of Presen t illness Narrative Patient here for EKG visit ordered by Dr. Al due to Parox. A-Fib. Dr. Castro in suite to review EKG prior to discharge. Patient here due to reducing Amiodarone 200 mg to once daily due to QT prolongation. Medication list Updated verbally. Denies cardiac complaints. To Dr. Al to read. Vitals: 02/24/24 1519 BP: 100/62 BP Location: Right arm Patient Position: Sitting Pulse: 85 Weight: 93 kg (205 lb) Height: 1.88 m (6' 2 ) documented in this encounter [facility] Work Phone: 02-17-2024 History of Presen t illness Narrative Images from the original note were not included. Patient ID: Alex Anderson is a 78 y.o. male who presents for: Upper Respiratory Infection Patient complains of symptoms of a URI. Symptoms include congestion, nasal congestion, shortness of breath, and tired, chest tightness . Onset of symptoms was 3 days ago, and has been gradually worsening since that time. Treatment to date: none. Negative covid yesterday. Review of Systems Constitutional: Positive for fatigue. Negative for chills and fever. HENT: Positive for congestion and postnasal drip. Negative for ear pain, sinus pressure, sinus pain and sore throat. Respiratory: Positive for chest tightness. Negative for cough, shortness of breath and wheezing. Neurological: Negative for light-headedness and headaches. Objective ] In general the patient is pleasant and in no acute distress. Bilateral ears, canals are within normal limits. Right TM is transparent and somewhat retracted. Left TM is transparent and somewhat retracted. No fluid layer. Bilateral nares demonstrate inflamed mucosa. Oropharynx has moist mucosa there is no specific evidence of thrush. There is mild erythema of the pharynx. Shoddy bilateral anterior cervical adenopathy. No signs of respiratory distress. Patient is speaking full sentences. There are diffusely decreased and asymmetrical breath sounds. No rhonchi or rales are appreciated. No wheezes. There is a moderate decrease relatively speaking in the breasts sounds of the left lower lung field. Decreased percussion in this region also. Skin is warm and dry Visit Vitals Ht 6' 2 Wt 223 lb BMI 28.63 kg/m Smoking Status Former BSA 2.3 m No Known Allergies Current Outpatient Medications on File Prior to Visit Medication Sig Dispense Refill albuterol HFA 90 mcg/act inhaler Inhale 2 puffs every 6 (six) hours if needed for wheezing 54 g 1 amiodarone (Pacerone) 200 MG tablet Take 200 mg by mouth Daily atorvastatin (Lipitor) 80 MG tablet Take 80 mg by mouth at bedtime Brilinta 90 MG tablet Take 90 mg by mouth every 12 (twelve) hours Eliquis 2.5 MG tablet Take 2.5 mg by mouth in the morning and 2.5 mg before bedtime. ferrous sulfate 325 (65 Fe) MG tablet Take 325 mg by mouth in the morning. Take with meals. FIBER ADULT GUMMIES PO Take 2 tablets by mouth Daily furosemide (Lasix) 40 MG tablet Take 40 mg by mouth in the morning. Multiple Vitamins-Minerals (Multivitamin Gummies Mens) chewable tablet Chew 1 tablet Daily nitroglycerin (Nitrostat) 0.[address] 0.4 mg under the tongue every 5 (five) minutes if needed for chest pain Spacer/Aero-Holding Chambers device every 8 (eight) hours. No current facility-administered medications on file prior to visit. 1. Pneumonia of left lower lobe due to infectious organism Recurrent problem in the face of COPD. For him he is actually doing quite well. He normally gets ill in a hurry. He has not been using his home nebulizer albuterol treatments. I recommended they do this at the 1st sign of any illness involving his respiratory tract and do it regularly 4 times daily. Cefuroxime 500 mg 20. No refills 1 tablet twice daily. 2. Simple chronic bronchitis (CMS/HCC) He also has a puffer that he attempts to use and I doubt highly that he can get the medication into his lungs properly. I have recommended a spacer and will prescribe. - Spacer/Aero-Holding Chambers (BreatheRite Dulce Spacer Adult) misc; 2 puffs 4 (four) times a day as needed (sob and cough) Dispense: 1 each; Refill: 0 documented in this encounter [facility] 01-23-2024 Consult note Note Date/Time January 23, 2024 12:29pm [facility] [address] [place] [address] Physiatry (Rehab) Consult Note Signed Patient: Alex Anderson MR#: [id number] : 1945 Acct:[id number] Age/Sex: 78 / M Adm Date: 4 Loc: Room: [address] [place] [address] Type: ADM IN Attending Dr: Nas Pruett [...] post mid LAD stenting for ST elevation MO (01/15) course complicated by hypotension, atrial fibrillation, [...] Problem [facility] COPD (chronic obstructive pulmonary disease) Osteoarthritis Kidney failure stage 1 Hyperlipidemia Obstructive uropathy Vitamin B 12 deficiency Problem List clean-up per request of [facility] Folic acid deficiency Sundowning Tobacco abuse quit april of 2023 Problem List clean-up per request of [facility]. [facility] Bilateral hydronephrosis TIA (transient ischemic attack) Problem List clean-up per request of Phys. [facility] Dyslipidemia Essential hypertension Kidney stones history of Problem List clean-up per request of Phys. [facility] Surgical History S/P cystoscopy Status post endovascular [...] Appearance Clear Urine pH 5.5 Ur Specific [place] 1.022 Urine Protein Trace H Urine Glucose [...] post mid LAD stenting for ST elevation MO (01/15) course complicated by hypotension, atrial fibrillation, [...] would recommend SNF closer to home in [place]. I understand this may be a discrepancy in family wishes from days prior but perhaps events overnight made them more compelled to try to take him home. -All agreeable to plan of care -Thank you for consult. Patient was personally seen by me, Dr. Rai, on the day of encounter, reviewed the history and the relevant portions of the chart, including current orders, allied health and clinical science consultant notes, labs/imaging and performed diaz elements of exam and I formulated the plan of care and facilitated the medical decision making. I completed a substantive portion of this encounter, the medical decision making portion of this note in its entirety, including Allied health note review, nursing note review, clinical science consultant note review, discussion with nursing and case management, and more than 50% of my time was spent on counseling and coordination of care, time spent 40 minutes Documented By: Rogelio Rai MD 01/23/24 1205 Signed By: <Electronically signed by Rogelio Rai MD> 01/23/24 1248 [facility] Work Phone: 1(605) 162-187808-30-2024 Progress note Author Isaac Edwards [facility] January 23, 2024 12:01pm Note Date/Time January 23, 2024 11 :59am [facility] [address] [place], [place] [id number] Progress Note Signed Patient: Alex Anderson MR#: [id number] : 1945 Acct:[id number] Age/Sex: 78 / M Adm Date: 4 Loc: 4 Room: [address] [place] [address] Type: ADM IN Attending Dr: Nas Pruett [...] <Electronically signed by MD Isaac Edwards> 01/23/24 1203 [facility] Work Phone: 1(526) 148-770708-30-2024 Consult note Author Rob Almazan [facility] January 23, 2024 3:21pm Note Date/Time January 23, 2024 8: 34am [facility] [address] [place] [address] Hospitalist Consult Note Signed Patient: Alex Anderson MR#: [id number] : 1945 Acct:[id number] Age/Sex: 78 / M Adm Date: 4 Loc: Room: [address] [place] [address] Type: ADM IN Attending Dr: Nas Pruett [...] that which is noted above in HPI ON LICENSE OF [facility] Medical History Villarreal catheter in place BPH [...] % (Auto) 64.3, Lymph % (Auto) 15.6, [place] % (Auto) 16.0, Eos % (Auto) 3.6, Baso % (Auto) 0.5, Nucleat RBC Rel Count 0.1, Neut # (Auto) 5.7, Lymph # (Auto) 1.4, [place] # (Auto) 1.4 H, Eos # (Auto) [...] Code Documented By: Rob Almazan MD [id number] Signed By: <Electronically signed by Rob Almazan MD> 01/23/24 8511 [facility] Work Phone: 1(222) 896-337508-30-2024 Progress note Author Jakob Lomax [facility] January 23, 2024 12:26am Note Date/Time January 23, 2024 12 :26am [facility] [address] [place] [address] Progress Note Signed Patient: Alex Anderson MR#: [id number] : 1945 Acct:[id number] Age/Sex: 78 / M Adm Date: 4 Loc: Room: [address] [place] [address] Type: ADM IN Attending Dr: Nas Pruett DO Copies to: ~ Date of Service: 01/22/2024 Progress Narrative Note PROGRESS NOTE Progress Note: Patient had a security alert called earlier this evening after getting aggressive with PCT, I responded to the security alert and received full report from bedside and rn relief charge regarding the events. patient did fall but [...] will plan to use Haldol 5mg IM, rn relief charge aware to notify me if needed. Formal consult to come tomorrow Documented By: Jakob Lomax DO 01/23/24 0022 Signed By: <Electronically signed by Jakob Lomax DO> 01/23/24 0026 [facility] Work Phone: 1(560) 858-960408-29-2024 Progress note Author Teo Al [facility] January 22, 2024 2:01pm Note Date/Time January 22, 2024 2: 01pm [facility] [address] [place] [address] Cardiology Progress Note Signed Patient: Alex Anderson MR#: [id number] : 1945 Acct:[id number] Age/Sex: 78 / M Adm Date: 4 Loc: Room: [address] [place] [address] Type: ADM IN Attending Dr: Nas Pruett [...] need toby found as the next step. concrete laborer and PT will be consulted Exam Physical Exam Vital Signs: Temp Pulse Resp BP Pulse Ox O2 Del Method O2 Flow Rate 98.4 F 64 16 98/65 L 96 Room Air 2 01/22/24 11:21 01/22/24 11:21 01/22/24 11:01/22/24 11:21 01/22/24 11:21 01/22/24 11:01/19/24 10:00 Const General: cooperative, comfortable and no [...] systolic (congestive) heart failure Documented By: Teo Al MD, [facility] [id number] Signed By: <Electronically signed by MD [place] Al> 01/22/24 1401 [facility] Work Phone: 1(394) 907-349408-29-2024 Progress note Author Isaac Edwards [facility] January 22, 2024 1:58pm Note Date/Time January 22, 2024 1: 58pm [facility] [address] [place] [address] Pulmonology Progress Note Signed Patient: Alex Anderson MR#: [id number] : 1945 Acct:[id number] Age/Sex: 78 / M Adm Date: 4 Loc: 4 Room: [address] [place] [address] Type: ADM IN Attending Dr: Nas Pruett [...] signed by MD Isaac Edwards> 01/22/24 135 [facility] Work Phone: 1(387) 300-649508-28-2024 Progress note Author Teo Al [facility] January 21, 2024 5:24pm Note Date/Time January 21, 2024 5: 24pm [facility] [address] [place] [address] Cardiology Progress Note Signed Patient: Alex Anderson MR#: [id number] : 1945 Acct:[id number] Age/Sex: 78 / M Adm Date: 4 Loc: Room: [address] [place] [address] Type: ADM IN Attending Dr: Nas Pruett [...] % (Auto) 64.3 Lymph % (Auto) 15.6 [place] % (Auto) 16.0 Eos % (Auto) 3.6 Baso % (Auto) 0.5 Nucleat RBC Rel Count 0.1 Neut # (Auto) 5.7 Lymph # (Auto) 1.4 [place] # (Auto) 1.4 H Eos # (Auto) [...] systolic (congestive) heart failure Documented By: Teo Al MD, [facility] 4 172 Signed By: <Electronically signed by [facility] Teo Al> 01/21/24 1724 [facility] Work Phone: 1(999) 947-256108-28-2024 Progress note Author Isaac Edwards [facility] January 21, 2024 11:45am Note Date/Time January 21, 2024 11 :31am [facility] [address] [place] [address] Pulmonology Progress Note Signed Patient: Alex Anderson MR#: [id number] : 1945 Acct:[id number] Age/Sex: 78 / M Adm Date: 4 Loc: Room: 5M9303-0 Type: ADM IN Attending Dr: Nas Pruett [...] 11:00 01/21/24 11:00 01/21/24 11:00 01/21/24 11:00 01/19/24 10:00 Const General: cooperative Orientation: alert [...] <Electronically signed by MD Isaac Edwards> 01/21/24 9421 [facility] Work Phone: 1(198) 926-170508-27-2024 Progress note Author Teo Al [facility] January 20, 2024 3:58pm Note Date/Time January 20, 2024 3: 58pm [facility] [address] [place] [address] Cardiology Progress Note Signed Patient: Alex Anderson MR#: [id number] : 1945 Acct:[id number] Age/Sex: 78 / M Adm Date: 4 Loc: Room: [address] [place] [address] Type: ADM IN Attending Dr: Nas Pruett [...] 97 Room Air 2 01/20/24 12:00 01/20/24 15:01/20/24 15:00 01/20/24 15:00 01/20/24 15:01/20/24 15:01/19/24 10:00 Const General: cooperative, comfortable and no [...] % (Auto) 71.9 Lymph % (Auto) 11.8 [place] % (Auto) 14.3 Eos % (Auto) 1.7 Baso % (Auto) 0.3 Nucleat RBC Rel Count 0.0 Neut # (Auto) 6.8 Lymph # (Auto) 1.1 [place] # (Auto) 1.4 H Eos # (Auto) [...] systolic (congestive) heart failure Documented By: Teo Al MD, [facility] 4 1553 Signed By: <Electronically signed by [facility] Teo Al> 01/20/24 1559 [facility] Work Phone: 1(878) 835-806808-27-2024 Progress note Author Isaac Edwards [facility] January 20, 2024 12:59pm Note Date/Time January 20, 2024 8: 53am [facility] [address] [place] [address] Pulmonology Progress Note Signed Patient: Alex Anderson MR#: [id number] : 1945 Acct:[id number] Age/Sex: 78 / M Adm Date: 4 Loc: Room: [address] [place] [address] Type: ADM IN Attending Dr: Nas Pruett [...] 99 Room Air 2 01/20/24 08:00 01/20/24 08:23 01/20/24 08:00 01/20/24 08:23 01/20/24 08:00 01/20/24 08:00 01/19/24 10:00 Const General: [...] needed. Documented By: Isaac Edwards MD 4 [id number] Signed By: <Electronically signed by MD Isaac Edwards> 01/20/24 1259 [facility] Work Phone: 1(221) 661-984908-26-2024 Progress note Author Isaac Edwards [facility] January 19, 2024 1:20pm Note Date/Time January 19, 2024 9: 06am [facility] [address] [place] [address] Pulmonology Progress Note Signed with Addenda Patient: Alex Anderson MR#: [id number] : 1945 Acct:[id number] Age/Sex: 78 / M Adm Date: 4 Loc: Room: [address] [place] [address] Type: ADM IN Attending Dr: Nas Pruett DO Copies to: ~ ADDENDUM1 Given finding of Enterococcus faecalis from urine culture of January 17, 2024 with relatively benign appearing urinalysis, we will change the patient's chronic indwelling Villarreal with concern for colonization. Note that the patient was scheduled to have a Villarreal catheter change tomorrow. Addendum Documented By: MD Isaac Edwards 01/19/24 1320 Addendum Signed By: <Electronically signed by MD Isaac Edwards> 01/19/24 1320 Date of Service: 01/19/2024 Subjective Subjective Narrative: [...] <Electronically signed by MD Isaac Edwards> 01/19/24 [facility]3 [facility] Work Phone: 1(961) 509-998608-26-2024 Progress note Author Teo Al [facility] January 19, 2024 12:11pm Note Date/Time January 19, 2024 12 :11pm [facility] [address] [place] [address] Cardiology Progress Note Signed Patient: Alex Anderson MR#: [id number] : 1945 Acct:[id number] Age/Sex: 78 / M Adm Date: 4 Loc: Room: [address] [place] [address] Type: ADM IN Attending Dr: Nas Pruett [...] % (Auto) 78.5 Lymph % (Auto) 8.8 [place] % (Auto) 11.9 Eos % (Auto) 0.4 Baso % (Auto) 0.4 Nucleat RBC Rel Count 0.1 Neut # (Auto) 8.6 H Lymph # (Auto) 1.0 [place] # (Auto) 1.3 H Eos # (Auto) [...] systolic (congestive) heart failure Documented By: Teo Al MD, [facility] 4 1206 Signed By: <Electronically signed by MD [place] Al> 01/19/24 1211 [facility] Work Phone: 1(686) 714-468508-25-2024 Progress note Author Justina Lara [facility] January 18, 2024 3:10pm Note Date/Time January 18, 2024 3: 10pm [facility] [address] [place] [address] Pulmonology Progress Note Signed Patient: Alex Anderson MR#: [id number] : 1945 Acct:[id number] Age/Sex: 78 / M Adm Date: 4 Loc: Room: [address] [place] [address] Type: ADM IN Attending Dr: Nas Pruett [...] managing post PCI/stent in LAD for acute MO. He is on beta- maldonado, antiplatelets, statin, [...] signed by Justina Lara MD> 01/18/24 1510 [facility] Work Phone: 1(149) 157-378608-25-2024 Progress note Author Ana Castro [facility] January 18, 2024 12:49pm Note Date/Time January 18, 2024 12 :50pm [facility] [address] [place] [address] Cardiology Progress Note Signed Patient: Alex Anderson MR#: [id number] : 1945 Acct:[id number] Age/Sex: 78 / M Adm Date: 4 Loc: Room: [address] [place] [address] Type: ADM IN Attending Dr: Nas Pruett [...] MPV Neut % (Auto) Lymph % (Auto) [place] % (Auto) Eos % (Auto) Baso % (Auto) Nucleat RBC Rel Count Neut # (Auto) Lymph # (Auto) [place] # (Auto) Eos # (Auto) Baso # (Auto) PHA Creatinine Clear Sodium Potassium Chloride Carbon Dioxide Anion Gap BUN Creatinine Est GFR (CKD-EPI) Glucose POC Glucose 115 126 Calcium Urine Color Light-yellow Urine Appearance Cloudy A Urine pH 6.0 Ur Specific [place] 1.018 Urine Protein Trace H Urine Glucose [...] % (Auto) 75.1 Lymph % (Auto) 11.5 [place] % (Auto) 12.8 Eos % (Auto) 0.2 Baso % (Auto) 0.4 Nucleat RBC Rel Count 0.0 Neut # (Auto) 9.1 H Lymph # (Auto) 1.4 [place] # (Auto) 1.5 H Eos # (Auto) 0.0 Baso # (Auto) 0.0 PHA Creatinine Clear 46.65 Sodium 136 Potassium 3.7 Chloride 107 Carbon Dioxide 21.2 Anion Gap 11.5 BUN 29 H Creatinine 1.59 H Est GFR (CKD-EPI) 43.613 Glucose 125 H POC Glucose Calcium 8.7 Urine Color Urine Appearance Urine pH Ur Specific [place] Urine Protein Urine Glucose (UA) Urine Ketones [...] sinus mechanism Documented By: Ana Castro MD 01/18/24 1247 Signed By: <Electronically signed by MD Ana Castro> 01/18/24 1249 [facility] Work Phone: 1(950) 208-879908-24-2024 Progress note Author Ana Castro [facility] January 17, 2024 12:43pm Note Date/Time January 17, 2024 12 :43pm [facility] [address] [place] [address] Cardiology Progress Note Signed Patient: Alex Anderson MR#: [id number] : 1945 Acct:[id number] Age/Sex: 78 / M Adm Date: 4 Loc: Room: [address] [place] [address] Type: ADM IN Attending Dr: Nsa Pruett DO Copies to: ~ Date of [...] MPV Neut % (Auto) Lymph % (Auto) [place] % (Auto) Eos % (Auto) Baso % (Auto) Nucleat RBC Rel Count Neut # (Auto) Lymph # (Auto) [place] # (Auto) Eos # (Auto) Baso # (Auto) Platelet Estimate Plt Morphology Comment RBC Morphology PHA Creatinine Clear Sodium Potassium Chloride Carbon Dioxide Anion Gap BUN Creatinine Est GFR (CKD-EPI) Glucose POC Glucose POC Glucose Comment Calcium Troponin I High Sens 65330.4 H* 659528.2 H* 701010.4 H* Triglycerides Cholesterol LDL Cholesterol, Calc VLDL Cholesterol HDL Cholesterol Cholesterol/HDL Ratio 01/16/24 01/16/24 01/16/24 18:37 19:15 21:31 Corrected WBC Uncorrected WBC Count RBC Hgb Hct MCV MCH MCHC RDW Plt Count MPV Neut % (Auto) Lymph % (Auto) [place] % (Auto) Eos % (Auto) Baso % (Auto) Nucleat RBC Rel Count Neut # (Auto) Lymph # (Auto) [place] # (Auto) Eos # (Auto) Baso # (Auto) Platelet Estimate Plt Morphology Comment RBC Morphology PHA Creatinine Clear Sodium Potassium Chloride Carbon Dioxide Anion Gap BUN Creatinine Est GFR (CKD-EPI) Glucose POC Glucose 119 118 POC Glucose Comment Glu2: cleaned meter Calcium Troponin I High Sens 85012.2 H* Triglycerides Cholesterol LDL Cholesterol, Calc VLDL Cholesterol HDL Cholesterol Cholesterol/HDL Ratio 01/17/24 01/17/24 01/17/24 04:37 07:14 11:52 Corrected WBC 17.7 H Uncorrected WBC Count 17.7 H RBC 4.46 Hgb 12.7 L Hct 38.4 L MCV 86.1 MCH 28.4 MCHC 33.0 RDW 15.8 H Plt Count 135 L MPV 9.0 Neut % (Auto) 77.1 Lymph % (Auto) 6.9 [place] % (Auto) 15.6 Eos % (Auto) 0.0 Baso % (Auto) 0.4 Nucleat RBC Rel Count 0.0 Neut # (Auto) 13.6 H Lymph # (Auto) 1.2 [place] # (Auto) 2.8 H Eos # (Auto) [...] Comment Calcium 8.9 Troponin I High Sens 39671.6 H* Triglycerides 67 Cholesterol 74 L LDL [...] quit smoking Documented By: Ana Castro MD 01/17/24 1241 Signed By: <Electronically signed by MD Ana Castro> 01/17/24 1243 [facility] Work Phone: 1(487) 812-254108-24-2024 Progress note Author Justina Lara [facility] January 17, 2024 11:57am Note Date/Time January 17, 2024 11 :54am [facility] [address] [place] [address] Pulmonology Progress Note Signed Patient: Alex Anderson MR#: [id number] : 1945 Acct:[id number] Age/Sex: 78 / M Adm Date: 4 Loc: Room: 0S6387-3 Type: ADM IN Attending Dr: Nas Pruett [...] managing post PCI/stent in LAD for acute MO. He is on beta- maldonado, antiplatelets, statin, [...] signed by Justina Lara MD> 01/17/24 1157 [facility] Work Phone: 1(457) 780-811808-23-2024 Consult note Author Justina Lara [facility] January 16, 2024 3:19pm Note Date/Time January 16, 2024 3: 16pm [facility] [address] [place] [address] Pulmonology Consult Note Signed Patient: Alex Anderson MR#: [id number] : 1945 Acct:[id number] Age/Sex: 78 / M Adm Date: 4 Loc: Room: 4R7419-2 [facility]: Nas Pruett DO Copies to: [...] abdominal pain nausea was diagnosed with acute MO and transferred from [facility]. He underwent left heart catheterization and stent in mid LAD Review of Systems Review of Systems All other systems reviewed & are negative unless noted below or in HPI Constitutional Constitutional: Reports as per HPI Cardiovascular Cardiovascular: Reports as per HPI and Reports chest pain at rest ON LICENSE OF [facility] Medical History (Updated 01/16/24 @ 12:52 by [...] Problem List clean[facility] Dys[facility] Essential hypertension Kidney stones history of Problem List clean-up per [facility] Surgical History (Updated 12/31/23 @ 14:22 by [...] managing post PCI/stent in LAD for acute MO. He is on beta- maldonado, antiplatelets, statin, antihypertensive medication per cardiology Monitor creatinine post cath Bronchodilators as needed for COPD Chest x-ray in a.m. DVT prophylaxis Lovenox Documented By: Justina Lara MD 01/16/24 1509 Signed By: <Electronically signed by Justina Lara MD> 01/16/24 1519 [facility] Work Phone: 1(574) 305-282208-23-2024 History and physical note Author W Flynn [facility] January 16, 2024 12:53pm Note Date/Time January 16, 2024 12 :45pm [facility] [address] [place] [address] Cardiology H&P Signed Patient: Alex Anderson MR#: [id number] : 1945 Acct:[id number] Age/Sex: 78 / M Adm Date: 4 Loc: 4C Room: 7R0150-5 Type: REG SDC Attending Dr: Nas Pruett DO Copies to: MD Nas Richards DO~ Date of Service: 01/16/2024 Cardiology HPI History of Present Illness Chief complaint: Anterior STEMI HPI: Mr. Anderson is a 78 year old male transferred from [place] with acute anterior ST elevation MO; original phone call taken from outside ER attending at 09:30 AM. Patient arrived in [facility] at 1116, after attempted right femoral approachand [...] of his suspected symptomatology); finally went to [place] ER around 02-01 30 this morning whereupon he was appropriately he diagnosed, appropriate upstream therapy instituted under my direction after discussion with ER attending, and emergently transferred to [facility] for revascularization. Total 60 minutes nonprocedural critical care time were devoted to the outside ERattending and staff, Assistant Statistician staff, nursing staff, patient and family pre and post procedurally Review of Systems Review of Systems All other systems reviewed & are negative unless noted below or in HPI Constitutional Constitutional: Reports as per HPI Cardiovascular Cardiovascular: Reports as per HPI and Reports chest pain at rest ON LICENSE OF [facility] Medical History (Updated 01/16/24 @ 12:52 by [...] Interpretations EKG EKG results cardiology: sinus rhythm MO, pacemaker, normal Myocardial infarction: anterior MO (acute or recent) A&P - Cardiology (1) [...] <Electronically signed by Nas Pruett DO> 01/16/24 1256 [facility] Work Phone: 1(859) 667-738608-23-[address] [facility] [facility] [facility]05-10-2024 Hospital Discharge instructions Patient Education 10/03/2023 [...] Follow these instructions at home: Medicines Take catd-ktd-hyuspmj and prescription medicines only as told by [...] provider. Document Revised: 01/31/2021 Document Reviewed: 01/31/2021 [employer] Patient Education 2022 [employer]. Follow Up Care 08/15/2023 11:04:15 With:ARLENE CASILLAS, Katia Hall, URL Address: [facility] [address] , [place] [address]- [phone] When: Unknown [facility] 02-05-2024 Hospital Discharge instructions Patient Education 06/30/2023 [...] Follow these instructions at home: Medicines Take hfph-hee-jorvuqc and prescription medicines only as told by [...] provider. Document Revised: 01/31/2021 Document Reviewed: 01/31/2021 [employer] Patient Education 2022 [employer]. Follow Up Care 05/06/2023 11:11:29 With:ARLENE CASILLAS, Katia Hall, URL Address: [facility] [address] , [place] [address]- [phone] When: Unknown Comments:1 day for catheter removal [facility] 01-16-2024 Hospital Discharge instructions Patient Education 06/10/2023 15:16:23 - [facility] Discharge Instructions (CUSTOM) [facility] Post-Procedure Instructions General [...] cotton underwear to absorb moisture and keep yolk spray drier. 6. Keep the drainage bag below [...] Address: [facility] [address] [place] [address]- Business (1) When:06/24/2023 15:15:55 Comments:for villarreal removal [facility]01-16-2024 Note [id number] NoteCustom Rezum Post-Procedure Instructions General Recommendations [...] site using a circul (more content not included)...[facility]12-12-2023 Evaluation note* Encounter Date Diagnosis Assessment Notes Treatment Notes Treatment Clinical Notes Apr, Primary hypertension (ICD-10 - I10) [facility] 11-21-2023 Evaluation note* Encounter Date Diagnosis [...] supplement. I asked the patient to continue tkqe-ooa-dydffxx iron supplement once or twice daily Mar, Primary hypertension (ICD-10 - I10) BP is elevated. Will start Norvasc 5 mg PO daily. i asked the patient to monitor Bp closely with tapering steroid dose [facility] 10-17-2023 Hospital Discharge instructions Patient Education [...] including vitamins, herbs, eye drops, creams, and arxh-pgo-xdlgqnw medicines. Any problems you or family members [...] provider tells you to take them. Taking agdu-von-nakodom medicines, vitamins, herbs, and supplements. Surgery safety [...] provider. Document Revised: 02/05/2022 Document Reviewed: 02/05/2022 Expa Patient Education 2022 [employer]. 03/11/2023 14:15:06 Benign Prostatic Hyperplasia Benign Prostatic [...] urethra. Follow these instructions at home: Take dyhe-opw-npbapvh and prescription medicines only as told by [...] provider. Document Revised: 11/28/2021 Document Reviewed: 11/28/2021 Expa Patient Education 2022 [employer]. Follow Up Care 02/07/2023 16:01:50 With:ARLENE CASILLAS, Katia Hall, BRAULIOL Address: [facility] [address], [place] [address]- When:Within 3 Month(s) Comments:Sched cysto/FISH/Cytol/BT check [facility] 10-17-2023 Evaluation + Plan note Diagnostic Tests Pending * UroVysion Fish and Urine Cyto ([facility]) 03/11/23 [facility]07-18-2023 Evaluation + Plan note Diagnostic Tests Pending * UroVysion Fish and Urine Cyto ([facility]) 12/10/22 [facility]07-18-2023 Hospital Discharge instructions Patient Education 12/10/2022 [...] if anything looks unusual. Men with a immhyr-wwgm-hltodp risk for skin cancer may want to see a offender employment specialist (javascript programmer) for an annual body check. What are the benefits of screening? Cancer screening is done to look for cancer in the very early stages, before it spreads and becomesharder to treat and before you would start to notice symptoms. Finding cancer early improves the chances of successful treatment. It may save your life. Where to find more information [place] [employer]: www.cancer.org Centers for Disease Control and Prevention: www.cdc.gov National Cancer [place]: www.cancer.gov Contact a health care provider if: [...] provider. Document Revised: 10/08/2021 Document Reviewed: 04/07/2020 Expa Patient Education 2022 [employer]. Follow Up Care 11/15/2022 14:27:10 With:ARLENE CASILLAS, Katia Hall, URL Address: [facility] [address] , [place] [address]- When: Unknown [facility] 04-26-2023 Hospital Discharge instructions Patient Education 09/18/2022 [...] cells. Follow these instructions at home: Take bhuy-daj-hchpbdl and prescription medicines only as told by [...] is important. Where to find more information [place] [employer] (ACS): cancer.org National Cancer [place] (NCI): cancer.gov Contact a health care provider [...] provider. Document Revised: 04/22/2022 Document Reviewed: 04/22/2022 Expa Patient Education 2022 [employer]. Follow Up Care 08/26/2022 14:12:46 With:ARLENE CASILLAS, Katia Hall, URL Address: [facility] [address] , [facility] [place] [address]- When: Unknown [facility] 04-10-2023 NoteEXAM: XR CHEST 2 V HISTORY: Pre-surgery evaluation COMPARISON: None. TECHNIQUE: PA and lateral views of the chest. FINDINGS: The cardiomediastinal silhouette is normal. No focal consolidation is identified. There is no pneumothorax. No pleural effusion is noted. The osseous structures are intact. IMPRESSION: No acute cardiopulmonary process. Electronically authenticated by: CORKY FORD Date: 2022-09-02 14:17[facility]03-29-2023 Evaluation note* Encounter Date Diagnosis Assessment [...] have his bladder tumor removal as scheduled. [facility] 03-08-2023 Evaluation + Plan note Diagnostic Tests Pending * UroVysion Fish and Urine Cyto ([facility]) 07/31/22 [facility] 03-08-2023 Hospital Discharge instructions Patient [...] including vitamins, herbs, eye drops, creams, and djck-ian-rycghxu medicines. Any problems you or family members [...] provider tells you to take them. Taking onoy-awu-zogcceg medicines, vitamins, herbs, and supplements. Tests You [...] 03/08/2010 Document Revised: 12/11/2018 Document Reviewed: 12/11/2018 Expa Patient Education 2020 [employer]. Follow Up Care 07/25/2022 10:56:51 With:ARLENE CASILLAS, Katia Hall, URL Address: [facility] [address] , [place] [address]- When: Unknown [facility] 03-02-2023 Evaluation note* Encounter Date Diagnosis Assessment [...] some bladder issues. I did call the [employer]. The device is compatible up to 3 Maggi for MRI. I explained this to the family and the patient. Jul, Other specified postprocedural states (ICD-10 - Z98.890) Jul, Personal history of other diseases of the circulatory system (ICD-10 - Z86.79) [facility] 02-07-[address] [facility] [facility]2023 Evaluation note* Encounter Date Diagnosis [...] plan to do this percutaneously under MAC. [facility] 01-17-2023 Hospital Discharge instructions Patient Education [...] including vitamins, herbs, eye drops, creams, and glqx-mbm-scxndpm medicines. Any problems you or family members [...] provider tells you to take them. ?Taking oxhe-lvf-zsgowxf medicines, vitamins, herbs, and supplements. Follow instructions [...] Follow these instructions at home: Medicines Take hgxr-uru-zcggvdn and prescription medicines only as told by [...] 05/09/2001 Document Revised: 05/04/2019 Document Reviewed: 05/04/2019 Expa Patient Education 2020 [employer]. Follow Up Care 05/22/2022 13:37:28 With:[facility] Address: 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 [facility] 01-10-2023 Evaluation note* Encounter Date Diagnosis Assessment Notes Treatment Notes Treatment Clinical Notes May, Acute kidney injury (ICD-10 - N17.9) Acute kidney injury was likely postrenal from obstructive nephropathy. BUN peaked at 129 and creatinine 8.5 g deciliter. Kidney function improved gradually with placing Villarreal catheter. Serum creatinine is back to baseline. Patient did not need hemodialysis. 10 Danny, 2023 Chronic kidney disease, stage 3b (ICD-10 - [...] (ICD-10 - E78.5) Patient is on statin [facility] Other Discharge summary Author Teo Al [facility] January 23, 2024 3:52pm Note Date/Time January 23, 2024 3: 52pm [facility] [address] [place] [address] Discharge Summary Signed Patient: Alex Anderson MR#: [id number] : 1945 Acct:[id number] Age/Sex: 78 / M Adm Date: 4 Loc: Room: [address] [place] [address]: Nas Pruett DO Copies to: MD Teo Richards MD, [facility] Nas Pruett DO~ Providers Date of Discharge: 01/23/24 Discharging Provider: Teo Al Primary Care Provider: Stanley Emerson Consults: 01/16/24 [...] Consult to Physiatry Routine Comment: Consulting Provider: [facility] - Phys Med - Rehab Reason For [...] course: Patient was transferred from [facility] emergency department with anterior ST elevation myocardial infarction and was taken straight to the Assistant Statistician by Dr. Pruett and underwent urgent PCI [...] doctor or pharmacist, without first calling the wash rack operator who implanted the stent. If you require [...] weight lifting, stair steppers, etc. until the wash rack operator approves these activities. Check with the wash rack operator on your first follow-up visit. CALL YOUR BIOTECHNOLOGIST: -If bleeding should occur from the catheter insertion site- apply pressure to the site then immediately call us. -Report any fever, redness, drainage, increased swelling, or firmness at the catheter insertion site. Some bruising or slight swelling may be present at thetime of discharge. -Should arm or leg become cold, numb, white, or blue, contact the wash rack operator immediately. -IF you should experience episodes of [...] Cardiopulmonary Rehabilitation program is recommended. The attending wash rack operator or a nurse clinician should provide you with specificinstructions regarding activity, diet, medications, and further follow up for you. Follow the medication instructions provided on your discharge. If the dosages and instructions on this sheet differ from the dosage and instructions on the bottle, follow the instructions on the bottle. [facility] is not responsible for incorrect prescription information [...] Ordered By: Nas Pruett Follow Up: Teo Al MD [Active Staff] - (office will call [...] Appearance Clear, Urine pH 5.5, Ur Specific [place] 1.022, Urine Protein Trace H, Urine Glucose (UA) Normal, Urine Ketones Negative, Urine Occult Blood 2+ H, Urine Nitrite Negative, Urine Bilirubin Negative, Urine Urobilinogen 2 H, Ur Leukocyte Esterase 4+ H, Urine RBC 20-49 H, Urine WBC 20-49 H, Urine WBC Clumps Rare H, Ur Squamous Epith CellsN/A, Urine Bacteria Rare, Hyaline Casts None, Urine Mucus Rare Documented By: eTo Al MD, [facility] 4 1548 Signed By: <Electronically signed by [facility] Teo Al> 01/23/24 1552 [facility] Work Phone: Evaluation + Plan note No data available for this section [facility] evaluation + Plan note Future Appointments Appointment Date:10/04/2022 10:00:00 AM Scheduled Provider: Location:[facility] Appointment Type:URO Nurse Visit [facility] Evaluation + Plan note Future Appointments Appointment Date:06/16/2023 10:00:00 AM Scheduled Provider: Location:[facility] Appointment Type:URO Nurse Visit Appointment Date:06/30/2023 01:30:00 PM Scheduled Provider:Katia JACOBS MD Location:[facility] Appointment Type:URO Office Visit Diagnostic Tests Pending * UroVysion Fish and Urine Cyto ([facility]) 06[facility]10/23 [facility] Future Appointments Appointment Date:06/30/2023 01:30:00 PM Scheduled Provider:Katia JACOBS MD Location:[facility] Appointment Type:URO Office Visit [facility] evaluation + Plan note Future Appointments Appointment Date:07/01/2023 08:30:00 AM Scheduled Provider: Location:[facility] Appointment Type:URO Nurse Visit [facility] evaluation + Plan note Future Appointments Appointment Date:09/09/2023 02:15:00 PM Scheduled Provider:Katia JACOBS MD Location:[facility] Appointment Type:URO Procedure 15 min [facility] Evaluation + Plan note Future Appointments Appointment Date:10/07/2023 02:45:00 PM Scheduled Provider:Katia JACOBS MD Location:[facility] Appointment Type:URO Procedure 15 min [facility] evaluation + Plan note Future Appointments Appointment Date:10/31/2023 11:00:00 AM Scheduled Provider: Location:[facility] Appointment Type:URO Nurse Visit [facility] evaluation + Plan note Future Appointments Appointment Date:10/31/2023 11:00:00 AM Scheduled Provider: Location:[facility] Appointment Type:URO Nurse Visit Diagnostic Tests Pending * UroVysion Fish and Urine Cyto ([facility]) 10[facility]03/23 [facility] Future Appointments Appointment Date:11/04/2023 10:30:00 AM Scheduled Provider: Location:[facility] Appointment Type:URO Nurse Visit [facility] evaluation + Plan note Future Appointments Appointment Date:12/02/2023 11:00:00 AM Scheduled Provider:TC Boles APRN, [place] Location:[facility] Appointment Type:URO Office Visit [facility] evaluation + Plan note Future Appointments Appointment Date:01/20/2024 11:30:00 AM Scheduled Provider:TC Boles APRN, [place] [facility] Location:[facility] Appointment Type:URO Office Visit [facility] evaluation + Plan note Future Appointments Appointment Date:04/06/2024 11:00:00 AM Scheduled Provider:Katia JACOBS MD Location:[facility] Appointment Type:URO Procedure 15 min [facility] [facility] evaluation + Plan note Future Appointments Appointment Date:05/06/2024 12:30:00 PM Scheduled Provider:Fabi Antonio Location:[facility] Appointment Type:URO Office Visit Appointment Date:10/05/2024 02:00:00 PM Scheduled Provider:Katia JACOBS MD Location:[facility] Appointment Type:URO Procedure 15 min [facility] Evaluation + Plan note Future Appointments Appointment Date:05/06/2024 12:30:00 PM Scheduled Provider:Fabi Antonio Location:[facility] Appointment Type:URO Office Visit Appointment Date:10/05/2024 02:00:00 PM Scheduled Provider:Katia JACOBS MD Location:[facility] Appointment Type:URO Procedure 15 min Diagnostic Tests Pending * [facility] Fish and Urine Cyto ([facility]) 04/06/24 [facility] Evaluation note* Diagnosis Onset Date Resolution [...] tract infection) acute Vitamin B 12 deficiency [facility] Work Phone: evaluation noteNo assessment information available [facility] Work Phone: evaluuikph noteNo InformationNort [employer] Other evaluation note* Diagnosis Onset Date Resolution Status Status post endovascular aneurysm repair (EVAR) acute Abdominal aortic aneurysm without rupture acute Anemia acute Chronic kidney disease, stage 3b acute Hyperlipidemia acute Hypertensive nephropathy acu te Iron deficiency [facility] note* Diagnosis Onset Date Resolution Status Abdominal aortic aneurysm without rupture acute Anemia acute Chronic kidney disease, stage 3b acute Hyperlipidemia acute Hypertensive nephropathy acu te Iron deficiency acute Obstructive nephropathy [facility] Work Phone: evaluation note* Diagnosis Onset Date Resolution Status Abdominal aortic aneurysm without rupture acute Atrial fibrillation, new onset acute Chronic kidney disease, stage 3b acute Chronic systolic heart failure acute Delirium acute Hyperlipidemia acute Hypertension acute Hypertensive nephropathy acu te Hypotension acute Impaired mobility and activities of daily living acute Iron deficiency acute Ischemic cardiomyopathy acut e Sleep-wake cycle disorder ac pala ST elevation myocardial infa rction (STEMI) of anterior wall acute Status post endovascular aneurysm repair (EVAR) acute [facility] note* Diagnosis Onset Date Resolution Status Abdominal aortic aneurysm without rupture acute Atrial fibrillation, new onset acute Chronic kidney disease, stage 3b acute Chronic systolic heart failure acute Hyperlipidemia acute Hypertensive nephropathy acu te Hypotension acute Impaired mobility and activities of daily living acute Iron deficiency acute Ischemic cardiomyopathy acut e Sleep-wake cycle disorder ac pala ST elevation myocardial infa rction (STEMI) of anterior wall acute Status post endovascular aneurysm repair (EVAR) acute Stented coronary artery acut e Delirium resolved Abdominal aortic aneurysm without rupture acute Anemia acute CHF (congestive heart failure) acute Chronic kidney disease, stage 3b acute Hyperlipidemia acute Hypertensive nephropathy acu te Iron deficiency acute [facility] Work [facility]: evaluation note* Diagnosis Paroxysmal atrial fibrillation (Multi) Atrial fibrillation documented in this encounter [facility] Work Phone: Evaluation note* Diagnosis Pneumonia of left lower lobe due to infectious organism- Primary Simple chronic bronchitis (CMS/HCC) Simple chronic bronchitis [facility] Diagnosis Onset Date Resolution Status Abdominal aortic aneurysm without rupture acute Atrial fibrillation, new onset acute Chronic kidney disease, stage 3b acute Chronic systolic heart failure acute Hyperlipidemia acute Hypertensive nephropathy acu te Hypotension acute Impaired mobility and activities of daily living acute Iron deficiency acute Ischemic cardiomyopathy acut e Sleep-wake cycle disorder ac pala ST elevation myocardial infa rction (STEMI) of anterior wall acute Status post endovascular aneurysm repair (EVAR) acute Stented coronary artery acut e Delirium resolved Abdominal aortic aneurysm without rupture acute Anemia acute CHF (congestive heart failure) acute Chronic kidney disease, stage 3b acute Hyperlipidemia acute Hypertensive nephropathy acu te Iron deficiency acute Obstructive nephropathy acut e Chest congestion noneactive [facility] Work Phone: Evaluation note* Diagnosis Onset Date Resolution Status Abdominal aortic aneurysm without rupture acute Atrial fibrillation, new onset acute Chronic kidney disease, stage 3b acute Chronic systolic heart failure acute Hyperlipidemia acute Hypertensive nephropathy acu te Hypotension acute Impaired mobility and activities of daily living acute Iron deficiency acute Ischemic cardiomyopathy acut e Sleep-wake cycle disorder ac pala ST elevation myocardial infa rction (STEMI) of anterior wall acute Status post endovascular aneurysm repair (EVAR) acute Stented coronary artery acut e Delirium resolved Abdominal aortic aneurysm without rupture acute Anemia acute CHF (congestive heart failure) acute Chronic kidney disease, stage 3b acute Hyperlipidemia acute Hypertensive nephropathy acu te Iron deficiency acute Obstructive nephropathy acut e Chest congestion noneactive Right lower lobe pneumonia n oneactive [facility] Work Phone: Evaluation note* Diagnosis Pneumonia of right lower lobe due to infectious organism documented [facility] this encounter [facility] Author Willy Lambert [facility] January 14, 2024 8:46am Note Date/Time January 14, 2024 8: 46am [facility] [address] [place] [id number] Gastroenterology H&P Signed Patient: Alex Anderson MR#: [id number] : 1945 Acct:[id number] Age/Sex: 78 / M Adm Date: 4 Loc: Room: Type: [facility] Attending Dr: Willy Lambert MD Copies to: [...] <Electronically signed by Willy Lambert MD> 01/14/24845 [facility] Work Phone: History general Narrative - Reported* [...] INJ URY, 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, 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 [facility] Other History general Narrative - Reported* Type [...] INJ URY, 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, 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 [facility] Other Hisfgeg general Narrative - Reported* Type Description Date [...] 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 Hospitalization History SEE ABOVE [facility] Other Hospital Discharge instructions No data available for this section [facility] Progress note No data available for this section [facility] Summary Purpose Family History No Family History [...] examination, bradyarrhythmia 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 TIA (transient ischemic attack) Tobacco abuse UTI (urinary tract infection) Vitamin B 12 deficiency Chief Complaint e78.5 n17.9 n18.32 n 13.30 i71.40 e78.5 Chief Complaint I71.4 Chief Complaint I71.4 1 YR F/U AAA; CTA AT [facility] Chief Complaint I71.4 1 YR F/U AAA; CTA AT [facility] RENAL 6 month f/u Reason for Visit [...] repair (EVAR) Stented coronary artery Chief Complaint e78.5 Positive cologuard Positive cologuard stemi. stemi. stemi. stemi. RENAL 4 MONTH F/U Reason for Visit Abdominal aortic ane urysm without rupture Atrial fibrillation, new onset Chronic kidney disease, stage 3b Chronic systolic heart failure Hyperlipidemia Hypertensive nephropathy Hypotension Impaired mobility and activities of daily living Iron deficiency Ischemic cardiomyopathy Sleep-wake cycle disorder ST elevation myocardial infarction (STEMI) of anterior wall Status post endovascular aneurysm repair (EVAR) Stented coronary artery Delirium Abdominal aortic aneurysm without rupture Anemia CHF (congestive heart failure) Chronic kidney disease, stage 3b Hyperlipidemia Hypertensive nephropathy Iron deficiency Obstructive nephropathy Chief Complaint e78.5 Positive cologuard Positive cologuard stemi. stemi. stemi. stemi. RENAL 4 MONTH F/U cough, congestion(exposed to strep) Reason for Visit Abdominal aortic ane urysm without rupture Atrial fibrillation, new onset Chronic kidney disease, stage 3b Chronic systolic heart failure Hyperlipidemia Hypertensive nephropathy Hypotension Impaired mobility and activities of daily living Iron deficiency Ischemic cardiomyopathy Sleep-wake cycle disorder ST elevation myocardial infarction (STEMI) of anterior wall Status post endovascular aneurysm repair (EVAR) Stented coronary artery Delirium Abdominal aortic aneurysm without rupture Anemia CHF (congestive heart failure) Chronic kidney disease, stage 3b Hyperlipidemia Hypertensive nephropathy Iron deficiency Obstructive nephropathy Chest congestion Chief Complaint e78.5 Positive cologuard Positive cologuard stemi. stemi. stemi. stemi. RENAL 4 MONTH F/U cough, congestion(exposed to strep) Reason for Visit Abdominal aortic ane urysm without rupture Atrial fibrillation, new onset Chronic kidney disease, stage 3b Chronic systolic heart failure Hyperlipidemia Hypertensive nephropathy Hypotension Impaired mobility and activities of daily living Iron deficiency Ischemic cardiomyopathy Sleep-wake cycle disorder ST elevation myocardial infarction (STEMI) of anterior wall Status post endovascular aneurysm repair (EVAR) Stented coronary artery Delirium Abdominal aortic aneurysm without rupture Anemia CHF (congestive heart failure) Chronic kidney disease, stage 3b Hyperlipidemia Hypertensive nephropathy Iron deficiency Obstructive nephropathy Chest congestion Right lower lobe pneumonia Chief Complaint * ALEX ANDERSON is being [...] section and content) DATE CREATED AUTHOR 05/12/2021 [facility] Special[facility] DATE CREATED AUTHOR AUTHOR'S ORGANIZ ATION 09/23/2022 [facility] DATE CREATED AUTHOR AUTHOR'S ORGANIZ ATION 01/23/2023 [facility] DATE CREATED AUTHOR AUTHOR'S ORGANIZ ATION 01/23/2023 [facility] DATE CREATED AUTHOR AUTHOR'S ORGANIZ ATION 03/20/2024 [facility] EPIC DATE CREATED AUTHOR AUTHOR'S ORGANIZ ATION 04/08/2024 [facility] DATE CREATED AUTHOR AUTHOR'S ORGANIZ ATION 04/11/2024 [facility] DATE CREATED AUTHOR AUTHOR'S ORGANIZ ATION 04/11/2024 [facility] DATE CREATED AUTHOR AUTHOR'S ORGANIZ ATION 04/13/2024 [facility] DATE CREATED AUTHOR AUTHOR'S ORGANIZ ATION 04/15/2024 [facility] Patient Care team informatio n (unrecognized section and content) Team Status: Active Member Role Status Dates Stanley Emerson MD Primary Care Provider Active Team Status: Inactive Member Role Status Dates Stanley Emerson MD Primary Care Provider Active Start: December 26, 2023 End: December 26, 2023 Teo Al MD Attending Provider Active St art: December [...] 2024 End: January 23, 2024 Nas Pruett , Admit Provider, Att ending Provider Active Start: [...] 2023 End: January 23, 2024 Daisha Li , ROCIO Other Provider Active Start: Au estefania 2023 End: January 23, 2024 Radha Berrios MD Other Provider Active Start: January 16, 2024 End: January 23, 2024 Khanh Deluca DO Other Provider Active Start : January 16, 2024 End: January 23, 2024 Ronald Martinez MD Other Provider Active Start : January 16, 2024 End: January 23, 2024 Bernabe Cr DO Other Provider Active Start: January 16, 2024 End: January 23, 2024 Jererll Gonsales MD Other Provider Active Start: January 16, 2024 End: January 23, 2024 Mary Ellen Zambrano MD Other Provider Active Start : January 16, 2024 End: January 23, 2024 Anand Mckenzie MD Other Provider Active Start: ust 2023 End: January 23, 2024 Roseann Velasco APRN Other Provider Active Start: January 16, 2024 End: January 23, 2024 Jagjit Swenson MD Other Provider Active Start: January 16, 2024 End: January 23, 2024 Pawel Sanford MD Other Provider Active Start: ust 2023 End: January 23, 2024 Taz Barnes MD Other Provider Active Start: January 16, 2024 End: January 23, 2024 Rupa Tran MD Other Provider Active Start: January 16, 2024 End: January 23, 2024 Roldan Masterson DO Other Provider Active Start: January 16, 2024 End: January 23, 2024 Kyle Ivy MD Other Provider Active Start: 2023 End: January 23, 2024 Jad Jaffe [...] Reji Garcia MD Other Provider Active Start: [facility] 2023 End: January 23, 2024 Lydia Rene DO Other Provider Active Start: estefania 2023 End: January 23, 2024 Lucas Dumas , Other Provider Active Start : January 16, [...] 2024 End: January 23, 2024 Tico Whitehead , Other Provider Active Star t: January 16, [...] : January 16, 2024 Dora Prado APRN ACNP-BC Other Provider Active Start: January 16, 2024 Isaac Edwards MD Other Provider Active Start: January 16, 2024 Magda Velasquez MD Other Provider Active St art: January 16, 2024 Bob Hackett MD Other Provider Active Start: A ugust 2023 Dean Perry DO Other Provider Active Start: January 16, 2024 Aayush Gallo , Other Provider Active Start: January 16, 2024 [...] 23, 2024 Nas Pruett DO Admit Provider, [facility] er Provider Active Start: January 23, 2024 Myesha Feliz MD Other Provider Active Start: Au estefania 2023 Rogelio Rai MD Other Provider Active Start: A ugust 2023 Heaven Truong APRN Other Provider Active St art: January 23, 2024 Mckay Yeboah Jr, DO Other Provider Active S tart: January 23, 2024 Ryley Hoyt MD Other Provider Active Start: January 23, 2024 Ledy Randle , ROCIO Other Provider Active Star t: January 23, 2024 Thu Alvarez , ROCIO Other Provider Active Start : January 23, 2024 Jen Delgado , ROCIO Other Provider Active Star t: January 23, 2024 Jennifer Rogel , ROCIO Other Provider Active Start: A ugust 2023 Daisha Li , ROCIO Other Provider Active Start: Au estefania 2023 Radha Berrios MD Other Provider Active Start: January 23, 2024 Khanh Deluca DO Other Provider Active Start : January 23, 2024 Ronald Martinez MD Other Provider Active Start : January 23, 2024 Bernabe Cr DO Other Provider Active Start: January 23, 2024 Jerrell Gonsales MD Other Provider Active Start: January 23, 2024 Mary Ellen Zambrano MD Other Provider Active Start : January 23, 2024 Anand Mckenzie MD Other Provider Active Start: ust 2023 Roseann Velasco APRN Other Provider Active Start: January 23, 2024 Jagjit Swenson MD Other Provider Active Start: January 23, 2024 Pawel Sanford MD Other Provider Active Start: 2023 Taz Barnes MD Other Provider Active Start: January 23, 2024 Rupa Tran MD Other Provider Active Start: January 23, 2024 Roldan Masterson DO Other Provider Active Start: January 23, 2024 Kyle Ivy MD Other Provider Active Start: 2023 Jad Jaffe MD Other Provider Active Start: Dec Vidya Hernandez GLASS DEPOSITION TENDER-C Other Provider Active St art: January 23, 2024 Valdo Sandra APRN Other Provider Active Star t: January 23, 2024 Rob Almazan MD Other Provider Active Start: January 23, 2024 Danielito Claros MD Other Provider Active Start: 2023 Seb Bonds MD Other Provider Active Start: Dec Basilio Tam MD Other Provider Active Star t: January 23, 2024 Reji Garcia MD Other Provider Active Start: 2023 Lydia Rene DO Other Provider Active [...] Emmanuel Silverman MD Other Provider Active Start: [facility] 2023 Monisha Moore RN Other Provider Active Start: A ust 2023 Isaac Edwarsd MD Attending Provider Active Start: January 23, 2024 Team Status: Active Member Role Status Dates Stanley Emerson MD Primary Care Provider Active Start: January 23, 2024 Nas Pruett DO Admit Provider, [facility] er Provider Active Start: January 23, 2024 Myesha Feliz MD Other Provider Active Start: [facility] 2023 Rogelio Rai MD Attending Provider, Other [...] Star t: January 23, 2024 Jennifer Rogel , ROCIO Other Provider Active Start: A ugust 2023 Daisha Li RN Other Provider Active Start: [facility] 2023 Radha Berrios MD Other Provider Active Start: January 23, 2024 Khanh Deluca DO Other Provider Active Start : January 23, 2024 Ronald Martinez MD Other Provider Active Start : January 23, 2024 Bernabe Cr DO Other Provider Active Start: January 23, 2024 Jerrell Gonsales MD Other Provider Active Start: January 23, 2024 Mary Ellen Zambrano MD Other Provider Active Start : January 23, 2024 Anand Mckenzie MD Other Provider Active Start: 2023 Roseann Velasco APRN Other Provider Active Start: January 23, 2024 Jagjit Swenson MD Other Provider Active Start: January 23, 2024 Pawel Sanford MD Other Provider Active Start: A 2023 Taz Barnes MD Other Provider Active [...] Provider Active Star t: January 23, 2024 oRb Almazan MD Other Provider Active Start: January 23, 2024 Danielito Claros MD Other Provider Active Start: 2023 Seb Bonds MD Other Provider Active Start: Dec Basilio Tam MD Other Provider Active Star t: January 23, 2024 Reji Garcia MD Other Provider Active Start: 2023 Lydia Rene DO Other Provider Active [...] Provider Active Start: January 23, 2024 Chi Smiht MD Other Provider Active Start: January 23, 2024 Chen Najera APRN Other Provider Active Star t: January 23, 2024 Dana Haddad MD Other Provider Active Start: A ugust 2023 Emmanuel Silverman MD Other Provider Active Start: Au estefania 2023 Monisha Moore RN Other Provider Active Start: A ugust 2023 Team Status: Active Member Role Status Dates Stanley Emerson MD Primary Care Provi maddy, Attending Provider Active Start: September 30, [...] Stanley Emerson MD Primary Care Provider Active Aziz Bakhous , MD Attending Provider Active Teo Al MD Referring Provider Active Team Status: Inactive [...] 2023 End: September 18, 2023 Team Status: Inactive Member Role Status Dates Stanley Emerson MD Primary Care Provider Active Start: February 04, 2024 End: February 04, 2024 Celia Griffin MD Attending Provider Active Star t: February 04, 2024 End: February 04, 2024 Internal Controls Analyst Relationship Specialty Start Date End Date Stanley Emerson MD [address] [phone] PCP - General 05/17/22 Internal Controls Analyst Relationship Specialty Start Date End Date Stanley Emerson MD [address] [place] [id number] PCP - ACO Reach 10/17/22 Stanley Emerson MD [address] [place] [phone] PCP - General Family Medicine 11/20/22 Dora Santiago LPN Licensed Practical Nurse Family Medicine 12/22/23 Internal Controls Analyst Relationship Specialty Start Date End Date Stanley Emerson MD [address] [place] [address] PCP - ACO Reach 10/17/22 Stanley Emerson MD [address] [place] [phone] PCP - General Family Medicine 11/20/22 Dora Santiago LPN Licensed Practical Nurse Family Medicine 12/22/23 Team Status: Inactive Member Role Status Dates Stanley Emerson MD Primary Care Provider Active Start: January 16, 2024 End: January 23, 2024 Nas Pruett , Admit Provider, Att ending Provider Active Start: January 16, 2024 End: January 23, 2024 Ledy Randle , ROCIO Other Provider Active Star t: January 16, 2024 End: January 23, 2024 Thu Alvarez , ROCIO Other Provider Active Start : January 16, 2024 End: January 23, 2024 Jen Delgado , ROCIO Other Provider Active Star t: January 16, 2024 End: January 23, 2024 Jennifer oRgel , ROCIO Other Provider Active Start: A ugust 2023 End: January 23, 2024 Daisha Li , ROCIO Other Provider Active Start: Au estefania 2023 End: January 23, 2024 Radha Berrios MD Other Provider Active Start: January 16, 2024 End: January 23, 2024 Khanh Deluca DO Other Provider Active Start : January 16, 2024 End: January 23, 2024 Ronald Martinez MD Other Provider Active Start : January 16, 2024 End: January 23, 2024 Beranbe Cr DO Other Provider Active Start: January [...] Pawel Sanford MD Other Provider Active Start: ust 2023 End: January 23, 2024 Taz Barnes MD Other Provider Active Start: January 16, 2024 End: January 23, 2024 Rupa Tran MD Other Provider Active Start: January 16, 2024 End: January 23, 2024 Roldan Masterson DO Other Provider Active Start: January 16, 2024 End: January 23, 2024 Kyle Ivy MD Other Provider Active Start: 2023 End: January 23, 2024 Jad Jaffe MD Other Provider Active Start: Dec End: January 23, 2024 OLU GayleC Other Provider Active St art: January 16, 2024 End: January 23, 2024 Valdo Sandra APRN Other Provider Active Star t: January 16, 2024 End: January 23, 2024 Rob Almazan MD Other Provider Active Start: January 16, 2024 End: January 23, 2024 Danielito Claros MD Other Provider Active Start: 2023 End: January 23, 2024 Seb Bonds MD Other Provider Active Start: Dec End: January 23, 2024 Basilio Tam MD Other Provider Active Star t: January 16, 2024 End: January 23, 2024 Reji Garcia MD Other Provider Active Start: A ugust 2023 End: January 23, 2024 Lydia Rene DO Other Provider Active Start: 2023 End: January 23, 2024 Lucas Dumas [...] Mayo MD Other Provider Active Start: A [facility] 2023 End: January 23, 2024 Shane Durham MD Other Provider Active S tart: January 16, 2024 End: January 23, 2024 Tico Whitehead , Other Provider Active Star t: January 16, [...] Haddad MD Other Provider Active Start: A [facility] 2023 End: January 23, 2024 Emmanuel Silverman MD Other Provider Active Start: [facility] 2023 End: January 23, 2024 Monisha Moore RN Other Provider Active Start: A [facility] 2023 End: January 23, 2024 Myesha Feliz MD Other Provider Active Start: [facility] 2023 End: January 23, 2024 Rogelio Rai MD Other Provider Active Start: A [facility] 2023 End: January 23, 2024 Heaven Truong APRN Other Provider Active St art: January 16, 2024 End: January 23, 2024 Mckay Yeboah Jr, DO Other Provider Active S tart: January 16, 2024 End: January 23, 2024 Ryley Hoyt MD Other Provider Active Start: January 16, 2024 End: January 23, 2024 Team Status: Active Member Role Status Dates Stnaley Emerson MD Primary Care Provider Active Start: January 16, 2024 Arnol Summers DO Attending Provider Active Sta rt: January 16, 2024 Team Status: Active Member Role Status Dates Stanley Emerson MD Primary Care Provider Active Start: March 08, 2024 Rosalie Bailey APRN Attending Provider Active Start: March 08, 2024 Team Status: Inactive Member Role Status Dates Stanley Emerson MD Primary Care Provider Active Start: March 08, 2024 End: March 08, 2024 Rosalie Bailey APRN Attending Provider Active Start: March 08, 2024 End: March 08, 2024 Internal Controls Analyst Relationship Specialty Start Date End Date Stanley Emerson MD [address] [place] [address] (Fax) PCP - ACO Reach 10/17/22 Stanley Emerson MD [address] [place] [address] PCP - General Family Medicine 11/20/22 Dora Santiago LPN Licensed Practical Nurse Family Medicine 12/22/23 Internal Controls Analyst Relationship Specialty Start Date End Date Stanley Emerson MD [address] [place] [address] (Fax) PCP - ACO Reach 10/17/22 Stanley Emerson MD [address] [place] [phone] (Fax) PCP - General Family Medicine 11/20/22 Dora Santiago LPN Licensed Practical Nurse Family Medicine 12/22/23 Internal Controls Analyst Relationship Specialty Start Date End Date Stanley Emerson MD [address] [place] [address] (Fax) PCP - ACO Reach 10/17/22 Stanley Emerson MD [address] [facility] [address] [place] [address] PCP - General Family Medicine 11/20/22 Dora Santiago LPN Licensed Practical Nurse Family Medicine 12/22/23 REASON FOR VISIT (unrecogniz ed section and content) Reason Comments ekg visit Specialty Diagnoses / Procedures Referred By Contac t Referred To Contact Diagnoses Paroxysmal atrial fibrillation (Multi) Procedures ECG 12 Lead Teo Al MD [address] [facility] [address] [place] [address] Referral ID Status Reason Start Date Expiration Date V isits Requested Visits Authorized [id number] Authorized 02/10/2024 02/09/2025 1 1 Reason Comments URI Reason Onset Date Comments Care Coordination 04/01/2024 Goals (unrecognized section and content) Goals may [...] BE BASED ON THE PRIMARY CLINICAL RECORDS. [employer] provides no warranty or guarantee of the accuracy or completeness of information in this document.
--- NOTE | 2024-04-28 01:30 | ED_ITS ---
HPI - Male Genitourinary General Chief complaint: Urogenital-Male Stated complaint: CATHETER ISSUES Time Seen by Provider: 04/28/24 00:42 Mode of arrival: walk-in History of Present Illness HPI Narrative: This 78-year-old male who has an indwelling Villarreal catheter due to a history of bladder cancer is brought to the emergency department by his son for evaluation of urinary retention. The patient started having some bloody drainage from the catheter earlier in the evening with passage of a small amount of clotted material and then has not been able to urinate since around 8 PM. He denies any abdominal pain. He has not had a fever. He follows up with Dr. Samuels. He is on Coumadin after he recently had a heart attack. The patient states that he tested positive for COVID-19 at home 2 days ago. He is not having any chest pain or shortness of breath. He nausea vomiting or diarrhea. Related Data Home Medications ?Medication ?Instructions ?Recorded ?Confirmed albuterol sulfate 90 mcg/actuation 1 inh inhalation Q6H PRN 04/13/23 01/16/24 aerosol inhaler bronchospasm aspirin 81 mg tablet,delayed 81 mg PO DAILY 04/13/23 01/16/24 release (Ecotrin Low Strength) metoprolol tartrate 50 mg tablet 50 mg PO Q12H 04/13/23 01/16/24 amlodipine 5 mg tablet 5 mg PO DAILY 07/30/23 01/16/24 spironolactone 25 mg tablet 25 mg PO DAILY 09/26/23 01/16/24 simvastatin 10 mg tablet 10 mg PO BEDTIME 01/16/24 01/16/24 clopidogrel 75 mg tablet mg 04/28/24 warfarin 2 mg tablet mg 04/28/24 Allergies Allergy/AdvReac Type Severity Reaction Status Date / Time No Known Drug Allergies Allergy Verified 09/26/23 20:49 Review of Systems ROS Status of ROS 10 or more systems reviewed and unremark able except as noted in history and below [facility] Medical History (Updated 04/28/24 @ 02:46 by Julianne Pulliam MD) Bladder cancer ?C67.9 - Malignant neoplasm of bladder, unspecified (ICD-10) Social History Smoking status: Current every day smoker Exam Narrative Exam Narrative: Vital signs and Nursing Notes reviewed: Patient is afebrile with a normal pulse, he is mildly tachypneic with a respiratory of 24, he has a stable blood pressure , he is not hypoxic with pulse ox of 98% on room air General: Awake, alert, oriented, no acute distress, lying comfortably on the stretcher HEENT: Normocephalic atraumatic, mucous membranes are moist and pink, eyes are clear, normal conjunctiva, vision is grossly intacthy Chest: Lungs are clear to auscultation with good air entry, there is no wheezing rhonchi or rales appreciated no accessory muscle use, patient is speaking in complete sentences-no chest wall tenderness to palpation CVS: Regular rate and rhythm S1-S2, no murmurs rubs or gallops, pulses are brisk and equal bilaterally ABD: Soft, nondistended, mild tenderness and fullness over the urinary bladder : Villarreal catheter in place, there is merna blood and clots in the bag Extremities: Moving all extremities, no lower extremity tenderness or swelling noted, negative Homans' sign, pulses are brisk and equal bilaterally Skin: Normal in appearance without rash,pallor, petechiae or purpura Neuro: No focal deficits Constitutional Vital Signs, click to edit/add: Last Vital Signs Temp 97.8 F 04/28/24 00:44 Pulse 96 H 04/28/24 00:44 Resp 24 H 04/28/24 00:44 BP 130/79 04/28/24 00:44 Pulse Ox 98 04/28/24 00:44 Course Vital Signs Vital signs: Vital Signs Temperature 97.8 F 04/28/24 00:44 Pulse Rate 96 H 04/28/24 00:44 Respiratory Rate 24 H 04/28/24 00:44 Blood Pressure 130/79 04/28/24 00:44 Pulse Oximetry 98 04/28/24 00:44 Temperature 97.8 F 04/28/24 00:44 Pulse Rate 96 H 04/28/24 00:44 Respiratory Rate 24 H 04/28/24 00:44 Blood Pressure 130/79 04/28/24 00:44 Pulse Oximetry 98 04/28/24 00:44 MDM - Male Genitourinary MDM Narrative Medical decision making narrative: Is 78-year-old male who is on Coumadin after having a heart attack and has an indwelling Villarreal catheter due to a history of bladder cancer presents for evaluation of urinary retention. He had a large blood clot which appeared to be blocking the end of his Villarreal catheter. He denies any trauma to the catheter. He had not urinated since around 8 PM. His Villarreal catheter was removed and replaced without difficulty. He was able to drain out approximately 400 cc of bloody urine that is now red but clear. He states he is feeling better. Urine was sent for culture. CBC with differential and coags were ordered and his INR is 2.53 and he has a normal white count and stable hemoglobin. He is continuing to drain bloody but clear urine and wishes to be discharged home. He was given a dose of Keflex prior to discharge home due to the acute onset of hematuria and instrumentation with replacement of his Villarreal catheter in emergency department. I encouraged him to call Dr. Samuels in the morning to let him know that he was having hematuria and for further guidance. Lab Data Labs: Lab Results 04/28/24 04/28/24 Range/Units 01:47 02:10 WBC 7.6 (4.0-11.0) 10^3/uL RBC 3.77 L (4.70-6.10) 10^6/uL Hgb 9.3 L (14.0-18.0) g/dL Hct 31.1 L (42.0-54.0) % MCV 82.5 (80.0-94.0) fL MCH 24.7 L (25.9-34.0) pg MCHC 29.9 (29.9-35.2) g/dL RDW 15.8 H (11.0-15.0) % Plt Count 208 (150-450) 10^3/uL MPV 10.0 (9.5-13.5) fL Neut % (Auto) 68.5 (43.0-75.0) % Lymph % (Auto) 19.1 L (20.5-60.0) % [place] % (Auto) 10.4 (1.7-12.0) % Eos % (Auto) 1.3 (0.9-7.0) % Baso % (Auto) 0.4 (0.2-2.0) % Neut # (Auto) 5.2 (1.4-6.5) 10^3/uL Lymph # (Auto) 1.5 (1.2-3.8) 10^3/uL [place] # (Auto) 0.8 (0.3-0.8) 10^3/uL Eos # (Auto) 0.1 (0.0-0.7) 10^3/uL Baso # (Auto) 0.0 (0.0-0.1) 10^3/uL Abs Immat Gran (auto) 0.02 (0.00-0.03) 10^3/uL Imm/Tot Granulo (auto) 0.3 (0.0-0.5) % PT 24.5 H (9.0-11.6) sec INR 2.53 Urine Color Dk. red (YELLOW) Urine Clarity Clear (CLEAR) Urine pH Color interference A (5.0-9.0) Ur Specific [place] 1.015 (1.005-1.025) Urine Protein Color interference A (NEG/TRACE) mg/dL Urine Glucose (UA) Color interference A (NEGATIVE) mg/dL Urine Ketones Color interference A (NEGATIVE) mg/dL Urine Occult Blood Color interference A (NEGATIVE) Urine Nitrite Color interference A (NEGATIVE) Urine Bilirubin Color interference A (NEGATIVE) Urine Urobilinogen Color interference A (0.2-1.0) EU/dL Ur Leukocyte Esterase Color interference A (NEGATIVE) Urine RBC >100 A (0-2) #/HPF Urine WBC 2-5 A (NONE SEEN) #/HPF Ur Squamous Epith Cells None seen (NONE/RARE) #/LPF Urine Crystals None seen (None Seen) #/HPF Urine Bacteria None seen (NONE SEEN) #/HPF Urine Casts None seen (NONE SEEN) #/LPF Urine Mucus None seen (NONE SEEN) Ur Culture Indicated? No Discharge Plan Discharge Chief Complaint: Urogenital-Male Clinical Impression: Complication of Villarreal catheter, Hematuria Patient Disposition: Home, Self-Care Time of Disposition Decision: 02:44 Condition: Good Prescriptions / Home Meds: No Action simvastatin 10 mg tablet 10 mg PO BEDTIME clopidogrel 75 mg tablet warfarin 2 mg tablet albuterol sulfate 90 mcg/actuation HFA aerosol inhaler 1 inh INHALATION Q6H PRN (Reason: bronchospasm) metoprolol tartrate 50 mg tablet 50 mg PO Q12H aspirin [Ecotrin Low Strength] 81 mg tablet,delayed release (DR/EC) 81 mg PO DAILY amlodipine 5 mg tablet 5 mg PO DAILY spironolactone 25 mg tablet 25 mg PO DAILY Print Language: Sudanese Instructions: Villarreal Catheter Placement and Care (ED), Hematuria (ED) Referrals: NICHOLAS EMERSON [Primary Care Provider] - 1 week
[2024-04-28] MEDS: LIDOCAINE 2% JELLY 10 ML UR (01:35)
--- NOTE | 2024-04-28 01:38 | PC.NURSE ---
18 FR regular zapien replaced with #18 FR coude zapien x 2 attempts. Pt scanned for 374 with old zapien. Old Zapien draining minimal bright red. Lg clots noted at the urethra and were removed. After new zapien placed. He drained 400 of bright red thus far. Denies c/o pain.
[2024-04-28 01:56] LABS: Clarity Urine CLEAR (CLEAR); Color Urine DK. RED (YELLOW); Specific Gravity Urine 1.015 (1.005-1.025)
[2024-04-28 01:58] LABS: Bilirubin Urine COLOR INTERFERENCE (NEGATIVE); Blood Urine COLOR INTERFERENCE (NEGATIVE); Glucose Urine UA COLOR INTERFERENCE mg/dL (NEGATIVE); Ketones Urine COLOR INTERFERENCE mg/dL (NEGATIVE); Leukocyte Esterase Urine COLOR INTERFERENCE (NEGATIVE); Nitrite Urine COLOR INTERFERENCE (NEGATIVE); Protein Urine COLOR INTERFERENCE mg/dL (NEG/TRACE); Urobilinogen Urine COLOR INTERFERENCE EU/dL (0.2-1.0); pH Urine COLOR INTERFERENCE (5.0-9.0)
[2024-04-28 02:04] LABS: Bacteria Urine NONE SEEN #/HPF (NONE SEEN); Cast Seen? NONE SEEN #/LPF (NONE SEEN); Crystals Seen? None Seen #/HPF (None Seen); Mucus Urine NONE SEEN (NONE SEEN); RBC Urine >100 #/HPF (0-2); Squamous Epithelial Cell Urine NONE SEEN #/LPF (NONE/RARE); Urine Culture Indicated NO
[2024-04-28 02:22] LABS: Basophils Percent Auto 0.4 % (0.2-2.0); Eosinophils Absolute Auto 0.1 10^3/uL (0.0-0.7); Eosinophils Percent Auto 1.3 % (0.9-7.0); Hematocrit 31.1 % (42.0-54.0); Hemoglobin 9.3 g/dL (14.0-18.0); Immature Granulocytes Abs Auto 0.02 10^3/uL (0.00-0.03); Immature Granulocytes Pct Auto 0.3 % (0.0-0.5); Lymphocytes Absolute Auto 1.5 10^3/uL (1.2-3.8); Lymphocytes Percent Auto 19.1 % (20.5-60.0); Mean Corpuscular HGB Conc 29.9 g/dL (29.9-35.2); Mean Corpuscular Hemoglobin 24.7 pg (25.9-34.0); Mean Corpuscular Volume 82.5 fL (80.0-94.0); Monocytes Absolute Auto 0.8 10^3/uL (0.3-0.8); Monocytes Percent Auto 10.4 % (1.7-12.0); Neutrophils Absolute Auto 5.2 10^3/uL (1.4-6.5); Neutrophils Percent Auto 68.5 % (43.0-75.0); Platelet Count 208 10^3/uL (150-450); Red Blood Count 3.77 10^6/uL (4.70-6.10); Red Cell Distribution Width 15.8 % (11.0-15.0); White Blood Count 7.6 10^3/uL (4.0-11.0)
[2024-04-28 02:36] LABS: INR 2.53; Prothrombin Time 24.5 sec (9.0-11.6)
[2024-04-28] MEDS: CEPHALEXIN 500 MG CAPSULE PO (02:56)
== END 2024-04-28 03:06 | disposition home or self-care (01) ==
PROVIDERS: Emergency Provider Emergency Medicine; PCP Family Medicine
DX: T83.098A Other mechanical complication of other urinary catheter, initial encounter (principal); R31.9 Hematuria, unspecified; R33.9 Retention of urine, unspecified; Z79.01 Long term (current) use of anticoagulants; I25.2 Old myocardial infarction; C67.9 Malignant neoplasm of bladder, unspecified; F17.200 Nicotine dependence, unspecified, uncomplicated
CPT/HCPCS: 36415; 81001; 85025; 85610; 99284

== ENCOUNTER 2024-04-28 07:00 | Emergency (ER) | payer MEDICARE, OTHER, SELFPAY ==
[2024-04-28 07:06] VITALS: BP 120/67; PULSE 99; TEMP 36.8; O2SAT 99; BMI 27.0
--- OUTSIDE RECORDS SUMMARY | 2024-04-28 07:18 | XMS_ITS | CCD ---
Author Organization [facility] Care Team Providers Care Central Office Maintainer Name Role Phone Stanley Emerson Unavailable Unavailable Unavailable STANLEY EMERSON Primary Care Physician Unavail able MD Stanley Emerson Primary Care Provider [phone] MD Taz Barnes Admit Provider MD Margarito Valentine Other Provider [phone] MD Janice Gonzalez Other Provider DO Bernabe Cr Attending Provider MD Margarito Valentine Attending Provider MD Margarito Valentine Admit Provider Celia Griffin Unavailable Margarito Valentine Unavailable MOMO Omalley Attending Provider MD Stanley Emerson Primary Care Provider [phone] MD Taz Barnes Admit Provider MD Margarito Valentine Other Provider [phone] MD Janice Gonzalez Other Provider DO Bernabe Cr Attending Provider MD Margarito Valentine Attending Provider MD Margarito Valentine Admit Provider [phone] MOMO Omalley Attending Provider Carlene Kasper Unavailable [...] Araceliva MD Stanley Gomez Primary Care Provider MD Celia Griffin Attending Provider [phone] MD Teo Al Referring Provider MD Stanley Emerson Primary Care Provider MD Margarito Valentine Attending Provider [phone] MD Stanley Emerson Primary Care Provider MD Teo Al Attending Provider MD Willy Lambert Attending Provider DO Nas Pruett Admit Provider DO Nas Pruett Attending Provider MD Myesha Feliz Other Provider MD Rogelio Rai Other Provider WATSON Truong Other Provider [phone] DO Mckay Yeboah Jr Other Provider MD Ryley Hoyt Other Provider [phone] ROCIO Randle Other Provider Unavailable ROCIO Alvarez Other Provider Unavailable ROCIO Delgado Other Provider Unavailable ROCIO Rogel Other Provider Unavailable ROCIO Li Other Provider Unavailable MD Radha Berrios Other Provider DO Khanh Deluca Other Provider MD Ronald Martinez Other Provider [phone] DO Bernabe Cr Other Provider MD Jerrell Gonsales Other Provider MD Mary Ellen Zambrano Other Provider MD [...] Other Provider DO Lucas Dumas Other Provider [phone] WATSON Watkins Other Provider DO Jakob Lomax Other Provider MD Nick Ken Other Provider WATSON Beard Other Provider WATSON Man Venus C Other Provider MD Joaquim Mayo Other Provider MD Shane Durham Other Provider DO Tico Whitehead Other Provider DO Alonso Maher Other Provider MD Humberto Bonds P Other Provider MD Chi Smith Other Provider WATSON Najera Other Provider [phone] MD Dana Haddad Other Provider MD Emmanuel Silverman Other Provider ROCIO Moore Other Provider Unavailable Stanley Emerson MD Primary Care Provider Stanley Emerson MD Unavailable Stanley Emerson MD Primary Care Provider [phone] Dora Santiago LPN Unavailable WATSON Bailey Attending Provider WATSON Truong Other Provider [phone] STANLEY EMERSON Attending Unavailable STANLEY EMERSON Attending Unavailable STANLEY EMERSON Attending Unavailable STANLEY EMERSON Attending Unavailable STANLEY EMERSON Attending Unavailable STANLEY EMERSON Attending Unavailable STANLEY EMERSON Attending Unavailable STANLEY EMERSON Attending Unavailable KATIA JACOBS Referring Unavailable Stanley Emerson MD Unavailable Stanley Emerson MD Primary Care Provider JACOBS, Katia R Attending Unavailable JACOBS, Katia [...] [employer] Unavailable Shane Durham [employer] Unavailable Tico Whitehead [...] Medication Allergies] Propensity to adverse reactions (disorder) [facility] Repository Medications Current Medications Medication Drug Class(es) [...] take 1 tablet by mouth every hour Eagle 325 mg-7.5 mg oral tablet 1 tab(s), Oral, Once, 1 tab(s), Refill(s) 0, Take 1 hour prior to procedure, [id number], 187, cm, 03/11/23 13:44:00 EDT, Height/Length Dosing, 93, kg, 03/11/23 13:44:00 EDT, Weight Dosing Start Date: 05/06/23 Status: Ordered [id number] 200 actuat albuterol 0.09 mg/actuat metered dose [...] procedure, # 6 tab(s), Refills(s) 0, Pharmacy: [id number], 187, cm, 09/18/22 14:39:00 EDT, Height/Length Dosing, 93, kg, 09/18/22 14:39:00 EDT, Weight Dosing Start Date: 12/03/22 Status: Ordered Start: 03-02-2023 take 1 tablet by charlene th once daily Cipro 250 mg Tab 250 mg = 1 tab(s), Oral, Daily, Take 1 tablet the day before the procedure and 1 tablet after the procedure, # 2 tab(s), Refills(s) 0, Pharmacy: [id number], 187, cm, 06/11/22 9:11:00 EST, [...] take 1 tablet by mouth at [facility] [facility] ferrous sulfate 325 (65 Fe) MG tablet [...] Daily, # 14 tab(s), Refills(s) 0, Pharmacy: [id number], 187, cm, 06/10/23 13:43:00 EST, [...] as needed with 60 cc sterile water, [id number], 187, cm, 10/03/23 14:11:00 EDT, [...] 11-11-2022 Chronic Other aftercare (3 sources) Other nursing home (current) drug therapy; Translations: [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] Onset: 09-23-2022 Episodic Other aftercare (1 source) halfway (current) use of anticoagulants; Translations: [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 CURRNT USE ANTICOAGULANTS] Onset: 09-08-2022 Episodic Other aftercare (1 source) Taking high risk medication; Translations: [Other nursing home (current) drug therapy] Onset: 02-10-2024 02-10-2024 Episodic [...] Onset: 09-08-2022 Episodic Other aftercare (1 source) halfway (current) use of aspirin; Translations: [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 * CPT: 40352, 75737. Microscopic Notes - Microscopic Notes - Abnormal cells 9p21 deletions: Abnormal cells aneploid events: Total cells analyzed: 25 Hematuria: Gross Description Site ID:A color Colorless fixative Alcohol Received 90 mls of slightly cloudy colorless fluid with the patient's name and, Bladder Wash on the vial. Electronically signed by : on: 04/12/2024 16:53:27 Performed By: #### 1 [id number] #### [facility] Laboratory [address] [place] [address] Ambulatory Visit Summaryon 06-06-2023 Ambulatory Visit Summary [...] [facility] [address] , [place] [address]- Medications What How Much When Instructions Unchanged [...] provider may (more content not included)... Normal [facility] Reminderson 04-06-2024 Reminders Reminders From: Dana Rivas To: EU - Recalls Arlene; Sent: 02/20/2024 14:44:26 EDT Show up: 07/24/2024 14:44:00 EST Subject: Cysto/FISH/cytol, cath chng Due Date/Time: 08/16/2024 14:44:00 EDT Reminder/Recall Patient is due in September 2024 for 6 month cysto/fish/cytol, cath change (bt ck) Patient sched 10/05/24 Normal [facility] Uro[facility]ysion Fish and Urine Cyt o ([facility])on 04-06-2024 [facility] Method of Extraction Bladder Wash Normal [facility] Comment on above: Performed By: #### 1 [id number] #### [facility] Laboratory [address] [place] [address] [facility] Number of Jars 1 Invalid Interpretation Code [facility] Comment on above: Performed By: #### 1 [id number] #### [facility] Laboratory [address] [place] [address] [facility] Specimen Bladder Wash Normal [facility] Comment on above: Performed By: #### 1 [id number] #### [facility] Laboratory [address] [place] [address] [facility] Type of Service Technical Only Normal [facility] Comment on above: Performed By: #### 1 [id number] #### [facility] Laboratory [address] [place] [address] Urology Office/Clinic Noteon 04-06-2024 Urology Office/Clinic Note Urology Office/Clinic Note Chief Complaint cysto HPI Staff Cysto ABX TAKE, villarreal change/bladder wash History of Present Illness Tests reviewed: I have reviewed the previous health record information and history for this patient from Dr. Jacosb. I have reviewed and verified the staff [...] going to start monthly villarreal changes. [1] [facility] ER on 09/15/22 due to catheter clogged. Pt was diagnosed w/ UTI and treated w/ Cipro 500 mg BID for x 7 days. Attempted urocuff, pt was unable to void, PVR 348 cc, cath placed 10/04/22. [2] Pt has been in the ER multiple times due to issues with Villarreal. Most recently, pt presented to [facility] ER 09/29/23 and 09/30/23 due to catheter not draining. [3] Cath changed IO today, see procedure section. 3. BPH with urinary obstruction (N40.1: Benign prostatic hyperplasia with lower urinary tract symptoms) S/p Rezum 06/10/23. Not taking any BPH meds. Maintained with chronic villarreal, see #2. Follow-up With When Contact Information ARLENE CASILLAS, Katia Hall, [facility] [address], [place] [address]- Additional Instructions: 6 mos surveillance cysto/bt ck/FISH/cytol Patient Education Indwelling Urinary Catheter Insertion, Care After Cancer Screening for Males ICitlalli, personally scribed for Dr. Jacobs on 04/06/2024 11:35:18. . Documentation recorded by the scribe, Citlalli Rushing, accurately reflects the services(s) I performed and decisions made by me. Authenticated by Dr. Jacobs on 04/06/2024 11:36:29. Problem List/Past Medical History (more content not included)... Normal [facility] Comment on above: Result Comment: Elec tronically Signed By: Katia JACOBS MD\.br\Date and Time Signed: 04/06/24 11:36 EST\.br\Electronically Co-Signed By: Citlalli Rushing\.br\Date and Time Co-Signed: 04/06/24 11:35 EST ALL HEMOGLOBINon 03-23-2024 Hemoglobin (Bld) [Mass/Vol] 9.5 g/dL Low 14.0 - 18.0 g/dL [facility] Interpretation and review of laboratory results Abnormal [facility] No Panel InformationOrdered By: Rosalie Bailey on 03-08-2024 Quick Strep (POC) [facility] XR chest 2V*on 03-08-2024 XR chest 2V* [facility] [place] [address] XRay Report Signed Patient: Alex Anderson MR#: [id number] [birth year] : 1945 Acct:[id number] Age/Sex: 78 / M ADM Date: 03/08/24 Loc: XDUCLY Room: Type: [facility] Attending Dr: Rosalie Bailey APRN Copies to: [...] 03/08/241401 Signed By: 03/08/24 1403 Normal [facility] ALL HEMOGLOBINon 03-04-2024 Hemoglobin (Bld) [...] ok to keep cysto on 04/06/24.LG Normal [facility] Bacteria [Presence] in Urine by AutomatedOrdered By: Rob Almazan on 01-23-2024 Bacteria Auto Ql (U) Rare [HPF] None Seen [facility] Bilirubin Test strip Ql (U)O rdered By: Rob Almazan on 01-23-2024 Bilirubin Ql (U) Negative Negative [facility] Color of Urine by AutoOrdere d By: Rob Almazan on 01-23-2024 Color (U) Yellow Normal Yellow [facility] Comment on above: Order Comment: Name Collection Type:: Villarreal Catheter Performed By: #### A JHONNY GIFFORD #### [address] Dipstick and Microscopicon 0 01-23-2024 Bacteria,Urine Rare Normal None Seen [facility] Comment on above: Order Comment: Name Collection Type:: Villarreal Catheter Performed By: #### A DDONUAPLUS, CUU #### [place] [address] [place] Bilirubin,Urine Negative Normal Negative [facility] Comment on above: Order Comment: Name Collection Type:: Villarreal Catheter Performed By: #### A DDONUAPLUS, CUU #### [address] Glucose Ql (U) Normal Normal Normal [facility] Comment on above: Order Comment: Name Collection Type:: Villarreal Catheter Performed By: #### A DDONUAPLUS, CUU #### [place] [address] [place] Hyaline Casts,Urine None Normal 0-8 [facility] Comment on above: Order Comment: Name Collection Type:: Villarreal Catheter Performed By: #### A DDONUAPLUS, CUU #### [place] [address] [place] Mucus,Urine Rare Normal [facility] Comment on above: Order Comment: Name Collection Type:: Villarreal Catheter Result Comment: PERF ORMED BY: [place] [address] PATHOLOGIST FLOOR CLERK OREN OWEN M.D. Performed By: #### A DDONUAPLUS, CUU #### [place] [address] [place] Nitrite,Urine Negative Normal Negative [facility] Comment on above: Order Comment: Name Collection Type:: Villarreal Catheter Performed By: #### A DDONUAPLUS, CUU #### [place] [address] [place] Occult Blood,Urine 2+ High Negative [facility] Comment on above: Order Comment: Name Collection Type:: Villarreal Catheter Result Comment: PERF ORMED BY: [place] [address] PATHOLOGIST FLOOR CLERK OREN OWEN M.D. Performed By: #### A DDONUAPLUS, CUU #### [place] [address] [place] Protein,Urine Trace High Negative [facility] Comment on above: Order Comment: Name Collection Type:: Villarreal Catheter Performed By: #### A DDONUAPLUS, CUU #### [place] [address] [place] RBC,Urine 20-49 High 0-4 [facility] Comment on above: Order Comment: Name Collection Type:: Villarreal Catheter Performed By: #### A DDONUAPLUS, CUU #### [address] Specificy [place],Urine 1.022 Normal 1.00 1-1.03 0 [facility] Comment on above: Order Comment: Name Collection Type:: Villarreal Catheter Performed By: #### A DDONUAPLUS, CUU #### [address] Urobilinogen,Urine 2 mg/dL High Normal [facility] Comment on above: Order Comment: Name Collection Type:: Villarreal Catheter Performed By: #### A DDONUAPLUS, CUU #### [address] WBC CLUMP, Urine Rare High None Seen [facility] Comment on above: Order Comment: Name Collection Type:: Villarreal Catheter Performed By: #### A DDONUAPLUS, CUU #### [place] [address] [place] WBC,Urine 20-49 High 0-4 [facility] Comment on above: Order Comment: Name Collection Type:: Villarreal Catheter Performed By: #### A DDONUAPLUS, CUU #### [place] [address] [place] ECG 12 lead ECGon 01-23-2024 ECG 12 lead ECG [facility] [place] [address] Electrocardiograph Report Signed Patient: Alex Anderson MR#: [id number] [birth year] : 1945 Acct:[id number] Age/Sex: 78 / M ADM Date: 01/16/24 Loc: Room: [address] [place] [address] Type: ADM IN Attending Dr: Nas Pruett [...] Acute Anteroseptal infarct Lateral injury pattern ACUTE [place] / STEMI Abnormal ECG When compared with ECG of 19-Jan-2024 07:09, Serial changes of Anteroseptal infarct present Confirmed by Misael Campbell ([id number]) on 01/23/2024 11:36:17 AM Referred By: Electronically Signed By: Misael Campbell Transcribed By: MUS Signed By Misael Campbell MD 01/23/24 1136 Normal [facility] Epithelial cells.squamous [# /area] in Urine sediment by Automated countOrdered By: Rob Almazan on 01-23-2024 Epithelial cells.squamous Auto (Urine sed) [#/Area] N/A [facility] Erythrocytes [#/area] in Uri ne sediment by Automated countOrdered By: Rob Alamzan on 01-23-2024 RBC Auto (Urine sed) [#/Area] 20-49 [HPF] High 0-4 [facility] Glucose [Mass/volume] in Uri ne by Test stripOrdered By: Rob Almazan on 01-23-2024 Glucose Test strip (U) [Mass/Vol] Normal mg/dL Normal [facility] Hemoglobin Test strip Ql (U) Ordered By: Rob Almazan on 01-23-2024 Hemoglobin Ql (U) 2+ High Negative [facility] Hyaline casts [#/area] in Ur ine sediment by Automated countOrdered By: Rob Almazan on 01-23-2024 Hyaline casts Auto (Urine sed) [#/Area] None [LPF] 0-8 [facility] Ketones [Presence] in Urine by Test stripOrdered By: Rob Villaltaor on 01-23-2024 Ketones Ql (U) Negative Normal Negative [facility] Comment on above: Order Comment: Name Collection Type:: Villarreal Catheter Performed By: #### A DDONUAPLUS, CUU #### [facility] [address] [place] [address] [place] Leukocyte clumps [Presence] in Urine by AutomatedOrdered By: Rob Almazan on 01-23-2024 Leukocyte clumps Auto Ql (U) Rare [LPF] High None Seen [facility] Leukocyte esterase [Presence ] in Urine by Test stripOrdered By: Rob Almazan on 01-23-2024 Leukocyte esterase Test strip Ql (U) 4+ High Negative [facility] Comment on above: Order Comment: Name Collection Type:: Villarreal Catheter Performed By: #### A DDONUAPLUS, CUU #### [facility] [address] [place] [address] [place] Leukocytes [#/area] in Urine sediment by Automated countOrdered By: Rob Almazan on 01-23-2024 WBC Auto (Urine sed) [#/Area] 20-49 [HPF] High 0-4 [facility] Mucus [Presence] in Urine by AutomatedOrdered By: Rob Almazan on 01-23-2024 Mucus Auto Ql (U) Rare [LPF] [facility] Nitrite Test strip Ql (U)Ord ered By: Rob Almazan on 01-23-2024 Nitrite Ql (U) Negative Negative [facility] Protein Test strip (U) [Mass /Vol]Ordered By: Rob Almazan on 01-23-2024 Protein (U) [Mass/Vol] Trace mg/dL High Negative [facility] Specific gravity Test strip (U) [Rel density]Ordered By: Rob Almazan on 01-23-2024 Specific gravity (U) [Rel density] 1.022 1.001-1.03 0 [facility] Urine Cultureon 01-23-2024 Bacteria identified Cx Nom (U) ORGANISM: Enterococcus faecalis (O:ENTFAC) [place] Count 30,000 Aerobic RITESH Charge (PCMIC38) SUSCEPTIBILITY [...] RESISTANT TO ALL B-LACTAM DRUGS. PERFORMED BY: [place] [address] PATHOLOGIST FLOOR CLERK OREN OWEN M.D. Normal [facility] Comment on above: Performed By: #### A ИРИНА CUU #### [facility] [address] [place] [address] Urine appearanceOrdered By: Rob Almazan on 01-23-2024 Appearance (U) Clear Normal Clear [facility] Comment on above: Order Comment: Name Collection Type:: Villarreal Catheter Performed By: #### A ИРИНА CUU #### [facility] [address] [place] [address] Urine culture routineOrdered By: Rob Almazan on 01-23-2024 Bacteria identified Cx Nom (U) Enterococcus faecalis Abnormal [facility] Urobilinogen Test strip (U) [Mass/Vol]Ordered By: Rob Almazan on 01-23-2024 Urobilinogen (U) [Mass/Vol] 2 mg/dL High Normal [facility] pH of Urine by Test stripOrd ered By: Rob Almazan on 01-23-2024 pH (U) 5.5 [pH] Normal 5.0-9.0 [facility] Comment on above: Order Comment: Name Collection Type:: Villarreal Catheter Performed By: #### A DDONUAJONATHAN, CUU #### [address] Automated basophil %Ordered By: Nas Pruett on 01-21-2024 Basophils/100 WBC (Bld) 0.5 % Normal . [facility] Comment on above: Performed By: #### B MP, CBC #### [address] Automated basophil countOrde red By: Nas Pruett on 01-21-2024 Basophils (Bld) [#/Vol] 0.0 10*3/uL Normal 0.0-0.2 [facility] Comment on above: Result Comment: PERF ORMED BY: [place] [address] PATHOLOGIST FLOOR CLERK OREN OWEN M.D. Performed By: #### B MP, CBC #### [address] Automated blood monocyte cou ntOrdered By: Nas Pruett on 01-21-2024 Monocytes (Bld) [#/Vol] 1.4 10*3/uL High 0.0-0.8 [facility] Comment on above: Performed By: #### B MP, CBC #### [address] Automated eosinophil %Ordere d By: Nas Pruett on 01-21-2024 Eosinophils/100 WBC (Bld) 3.6 % Normal . [facility] Comment on above: Performed By: #### B MP, CBC #### [address] Automated eosinophil countOr dered By: Nas Pruett on 01-21-2024 Eosinophils (Bld) [#/Vol] 0.3 10*3/uL Normal 0.0-0.45 [facility] Comment on above: Performed By: #### B MP, CBC #### [address] Automated monocyte %Ordered By: Nas Pruett on 01-21-2024 Monocytes/100 WBC (Bld) 16.0 % Normal . [facility] Comment on above: Performed By: #### B MP, CBC #### [address] Automated neutrophil %Ordere d By: Nas Pruett on 01-21-2024 Neutrophils/100 WBC (Bld) 64.3 % Normal . [facility] Comment on above: Performed By: #### B MP, CBC #### [address] Basic Metabolic Panelon 12-25 Creatinine Clr Calc Pharmacy 46.56 Normal [facility] Comment on above: Result Comment: PERF ORMED BY: [place] [address] PATHOLOGIST FLOOR CLERK OREN OWEN M.D. Performed By: #### B MP, CBC #### [address] GFR/1.73 sq M.predicted MDRD (S/P/Bld) [Vol rate/Area] 43.613 mL/min/{1.73_m2} Normal [facility] Comment on above: Performed By: #### B MP, CBC #### [address] Calcium [Mass/volume] in Ser um or PlasmaOrdered By: Nas Pruett on 01-21-2024 Calcium [Mass/Vol] 8.5 mg/dL Low 8.6-10.3 [facility] Comment on above: Performed By: #### B MP, CBC #### [address] Carbon dioxide, total [Moles /volume] in Serum or PlasmaOrdered By: Nas Pruett on 01-21-2024 CO2 [Moles/Vol] 20.1 mmol/L Low 21.0-31.0 [facility] Comment on above: Performed By: #### B MP, CBC #### [address] [place] [address] [place] Chloride [Moles/volume] in S marium or PlasmaOrdered By: Nas Pruett on 01-21-2024 Chloride [Moles/Vol] 107 mmol/L Normal 98-107 [facility] Comment on above: Performed By: #### B MP, CBC #### [address] Complete Blood Count Auto Di ffon 01-21-2024 Mean Corpuscular HGB Conc 32.9 g/dL Normal 32.5-35.6 [facility] Comment on above: Performed By: #### B MP, CBC #### [address] NRBC% 0.1 /100{WBC} Normal 0-0.5 [facility] Comment on above: Performed By: #### B MP, CBC #### [address] Creatinine [Mass/volume] in Serum or PlasmaOrdered By: Nas Pruett on 01-21-2024 Creatinine [Mass/Vol] 1.59 mg/dL High 0.70-1.30 [facility] Comment on above: Performed By: #### B MP, CBC #### [address] Erythrocyte distribution wid th [Ratio] by Automated countOrdered By: Nas Pruett on 01-21-2024 Erythrocyte distribution width (RBC) [Ratio] 15.6 % High 12.0-14.8 [facility] Comment on above: Performed By: #### B MP, CBC #### [place] [address] [place] Erythrocytes [#/volume] in B lood by Automated countOrdered By: Nas Pruett on 01-21-2024 RBC (Bld) [#/Vol] 4.33 10*6/uL Normal 3.90-5.60 [facility] Comment on above: Performed By: #### B MP, CBC #### [address] Glucose [Mass/volume] in Ser um or PlasmaOrdered By: Nas Pruett on 01-21-2024 Glucose [Mass/Vol] 121 mg/dL High 70-100 [facility] Comment on above: ADA recommended refe rence rangeRandom Glucose Reference Range is dependent on time and content of last meal. Glucose of more than 200 mg/dL in a nonstressed, ambulatory subject supports the diagnosis of Diabetes Mellitus. Result Comment: [place] om Glucose Reference Range is dependent on time and content of last meal. Glucose of more than 200 mg/dL in a nonstressed, ambulatory subject supports the diagnosis of Diabetes Mellitus. ADA recommended reference range Performed By: #### B MP, CBC #### [address] Hematocrit [Volume Fraction] of Blood by Automated countOrdered By: Nas Pruett on 01-21-2024 Hematocrit (Bld) [Volume fraction] 37.1 % Low 38.8-50.0 [facility] Comment on above: Performed By: #### B MP, CBC #### [address] Hemoglobin [Mass/volume] in BloodOrdered By: Nas Pruett on 01-21-2024 Hemoglobin (Bld) [Mass/Vol] 12.2 g/dL Low 13.0-17.0 [facility] Comment on above: Performed By: #### B MP, CBC #### [address] Leukocytes [#/volume] correc phil for nucleated erythrocytes in Blood by Automated counOrdered By: Nas Purett on 01-21-2024 WBC corrected for nucl RBC Auto (Bld) [#/Vol] 8.8 10*3/uL 4.1-10.5 [facility] Leukocytes [#/volume] in Blo od by Automated countOrdered By: Nas Pruett on 01-21-2024 WBC (Bld) [#/Vol] 8.8 10*3/uL Normal 4.1-10.5 [facility] Comment on above: Performed By: #### B MP, CBC #### [place] [id number] [place] Lymphocytes [#/volume] in Bl ood by Automated countOrdered By: Nas Pruett on 01-21-2024 Lymphocytes (Bld) [#/Vol] 1.4 10*3/uL Normal 1.00-4.8 [facility] Comment on above: Performed By: #### B MP, CBC #### [address] Lymphocytes/100 leukocytes i n Blood by Automated countOrdered By: Nas Pruett on 01-21-2024 Lymphocytes/100 WBC (Bld) 15.6 % Normal . [facility] Comment on above: Performed By: #### B MP, CBC #### [address] MCH [Entitic mass] by Automa phil countOrdered By: Nas Pruett on 01-21-2024 MCH (RBC) [Entitic mass] 28.1 pg Normal 27.5-35.2 [facility] Comment on above: Performed By: #### B MP, CBC #### [address] MCHC Auto (RBC) [Mass/Vol]Or dered By: Nas Pruett on 01-21-2024 MCHC (RBC) [Mass/Vol] 32.9 g/dL 32.5-35.6 [facility] MCV [Entitic volume] by Auto mated countOrdered By: Nas Pruett on 01-21-2024 MCV (RBC) [Entitic vol] 85.6 fL Normal 83.5-101 F [facility] Comment on above: Performed By: #### B MP, CBC #### [address] Neutrophils [#/volume] in Bl ood by Automated countOrdered By: Nas Pruett on 01-21-2024 Neutrophils (Bld) [#/Vol] 5.7 10*3/uL Normal 1.8-7.7 [facility] Comment on above: Performed By: #### B MP, CBC #### [address] No Panel InformationOrdered By: Nas Pruett on 01-21-2024 Estimated GFR (CKD-EPI) 43.613 mL/Min [facility] Creatinine Clearance (Chem 46.56 [facility] Nucleated erythrocytes [Pres ence] in Blood by Automated countOrdered By: Nas Pruett on 01-21-2024 Nucleated RBC Auto Ql (Bld) 0.1 /100{WBC} 0-0.5 [facility] Platelet mean volume [Entiti c volume] in Blood by Automated countOrdered By: Nas Pruett on 01-21-2024 Platelet mean volume (Bld) [Entitic vol] 8.4 fL Normal 6.6-10.1 [facility] Comment on above: Performed By: #### B MP, CBC #### [facility] [address] Platelets [#/volume] in Bloo d by Automated countOrdered By: Nas Pruett on 01-21-2024 Platelets (Bld) [#/Vol] 221 10*3/uL Normal 150-450 [facility] Comment on above: Performed By: #### B MP, CBC #### [facility] [address] Potassium [Moles/volume] in Serum or PlasmaOrdered By: Nas Pruett on 01-21-2024 Potassium [Moles/Vol] 3.9 mmol/L Normal 3.5-5.1 [facility] Comment on above: Performed By: #### B MP, CBC #### [facility] [address] Serum or plasma anion gap de terminationOrdered By: Nas Pruett on 01-21-2024 Anion gap [Moles/Vol] 13.8 mmol/L Normal 6.0-15.0 [facility] Comment on above: Performed By: #### B MP, CBC #### [facility] [address] [place] [address] Sodium [Moles/volume] in Ser um or PlasmaOrdered By: Nas Pruett on 01-21-2024 Sodium [Moles/Vol] 137 mmol/L Normal 136-145 [facility] Comment on above: Performed By: #### B MP, CBC #### [facility] [address] [place] [address] Urea nitrogen [Mass/volume] in Serum or PlasmaOrdered By: Nas Pruett on 01-21-2024 Urea nitrogen [Mass/Vol] 35 mg/dL High 7-25 [facility] Comment on above: Performed By: #### B MP, CBC #### [facility] [address] Basic Metabolic Panelon 12-25 Anion gap [Moles/Vol] 12.0 mmol/L Normal 6.0-15.0 [facility] Comment on above: Performed By: #### A DDMOEUAJONATHAN, CUU #### [address] Calcium [Mass/Vol] 8.4 mg/dL Low 8.6-10.3 [facility] Comment on above: Performed By: #### A DORAONUAJONATHAN, CUU #### [address] Chloride [Moles/Vol] 107 mmol/L Normal 98-107 [facility] Comment on above: Performed By: #### A DDMOEUAJONATHAN, CUU #### [address] CO2 [Moles/Vol] 19.5 mmol/L Low 21.0-31.0 [facility] Comment on above: Performed By: #### A DDONUAJONATHAN, CUU #### [address] Creatinine [Mass/Vol] 1.50 mg/dL High 0.70-1.30 [facility] Comment on above: Performed By: #### A DDAYSHA, CUU #### [address] Creatinine Clr Calc Pharmacy 49.40 Normal [facility] Comment on above: Result Comment: PERF ORMED BY: [place] [address] PATHOLOGIST FLOOR CLERK OREN OWEN M.D. Performed By: #### A ИРИНА, CUU #### [place] [address] [place] GFR/1.73 sq M.predicted MDRD (S/P/Bld) [Vol rate/Area] 46.772 mL/min/{1.73_m2} Normal [facility] Comment on above: Performed By: #### A ИРИНА, CUU #### [address] Glucose [Mass/Vol] 136 mg/dL High 70-100 [facility] Comment on above: Result Comment: [place] Glucose Reference Range is dependent on time and content of last meal. Glucose of more than 200 mg/dL in a nonstressed, ambulatory subject supports the diagnosis of Diabetes Mellitus. ADA recommended reference range Performed By: #### A ИРИНА CUU #### [address] Potassium [Moles/Vol] 3.5 mmol/L Normal 3.5-5.1 [facility] Comment on above: Performed By: #### A ИРИНА CUU #### [address] Sodium [Moles/Vol] 135 mmol/L Low 136-145 [facility] Comment on above: Performed By: #### A ИРИНА CUU #### [address] Urea nitrogen [Mass/Vol] 32 mg/dL High 7-25 [facility] Comment on above: Performed By: #### A ИРИНА CUU #### [address] Complete Blood Count Auto Di ffon 01-20-2024 Basophils (Bld) [#/Vol] 0.0 10*3/uL Normal 0.0-0.2 [facility] Comment on above: Result Comment: PERF ORMED BY: [place] [address] PATHOLOGIST FLOOR CLERK OREN OWEN M.D. Performed By: #### A ИРИНА, CUU #### [address] Basophils/100 WBC (Bld) 0.3 % Normal . T jonatan [facility] Comment on above: Performed By: #### A ИРИНА, CUU #### [address] Eosinophils (Bld) [#/Vol] 0.2 10*3/uL Normal 0.0-0.45 [facility] Comment on above: Performed By: #### A ИРИНА, CUU #### [address] Eosinophils/100 WBC (Bld) 1.7 % Normal . [facility] Comment on above: Performed By: #### A ИРИНА, CUU #### [address] Erythrocyte distribution width (RBC) [Ratio] 15.4 % High 12.0-14.8 [facility] Comment on above: Performed By: #### A ИРИНА CUU #### [address] Hematocrit (Bld) [Volume fraction] 37.6 % Low 38.8-50.0 [facility] Comment on above: Performed By: #### A ИРИНА, CUU #### [address] Hemoglobin (Bld) [Mass/Vol] 12.5 g/dL Low 13.0-17.0 [facility] Comment on above: Performed By: #### A ИРИНА, CUU #### [address] Lymphocytes (Bld) [#/Vol] 1.1 10*3/uL Normal 1.00-4.8 [facility] Comment on above: Performed By: #### A DDONUAPLUS, CUU #### [address] Lymphocytes/100 WBC (Bld) 11.8 % Normal . [facility] Comment on above: Performed By: #### A DDONUAPLUS, CUU #### [address] MCH (RBC) [Entitic mass] 28.5 pg Normal 27.5-35.2 [facility] Comment on above: Performed By: #### A DDONUAPLUS, CUU #### [address] MCV (RBC) [Entitic vol] 85.9 fL Normal 83.5-101 [facility] Comment on above: Performed By: #### A DDONUAPLUS, CUU #### [address] Mean Corpuscular HGB Conc 33.2 g/dL Normal 32.5-35.6 [facility] Comment on above: Performed By: #### A DDONUAPLUS, CUU #### [place] [address] [place] Monocytes (Bld) [#/Vol] 1.4 10*3/uL High 0.0-0.8 [facility] Comment on above: Performed By: #### A DDONUAPLUS, CUU #### [place] [address] [place] Monocytes/100 WBC (Bld) 14.3 % Normal . [facility] Comment on above: Performed By: #### A DDONUAPLUS, CUU #### [place] [address] [place] Neutrophils (Bld) [#/Vol] 6.8 10*3/uL Normal 1.8-7.7 [facility] Comment on above: Performed By: #### A DDONUAPLUS, CUU #### [place] [address] [place] Neutrophils/100 WBC (Bld) 71.9 % Normal . [facility] Comment on above: Performed By: #### A DDONUAPLUS, CUU #### [address] NRBC% 0.0 /100{WBC} Normal 0-0.5 [facility] Comment on above: Performed By: #### A DDONUAPLUS, CUU #### [address] Platelet mean volume (Bld) [Entitic vol] 8.3 fL Normal 6.6-10.1 [facility] Comment on above: Performed By: #### A DDONUAPLUS, CUU #### [address] Platelets (Bld) [#/Vol] 202 10*3/uL Normal 150-450 [facility] Comment on above: Performed By: #### A DDONUAPLUS, CUU #### [address] RBC (Bld) [#/Vol] 4.38 10*6/uL Normal 3.90-5.60 [facility] Comment on above: Performed By: #### A DDONUAPLUS, CUU #### [address] WBC (Bld) [#/Vol] 9.5 10*3/uL Normal 4.1-10.5 [facility] Comment on above: Performed By: #### A DDONUAPLUS, CUU #### [address] Magnesium [Mass/volume] in S marium or PlasmaOrdered By: Isaac Edwards on 01-20-2024 Magnesium [Mass/Vol] 2.1 mg/dL Normal 1.9-2.7 [facility] Comment on above: Result Comment: PERF ORMED BY: [place] [address] PATHOLOGIST FLOOR CLERK OREN OWEN M.D. Performed By: #### A DDONUAPLUS, CUU #### [address] Basic Metabolic Panelon 08-2 Anion gap [Moles/Vol] 11.7 mmol/L Normal 6.0-15.0 [facility] Comment on above: Performed By: #### B MP, CBC #### [address] Calcium [Mass/Vol] 8.5 mg/dL Low 8.6-10.3 [facility] Comment on above: Performed By: #### B MP, CBC #### [address] Chloride [Moles/Vol] 106 mmol/L Normal 98-107 [facility] Comment on above: Performed By: #### B MP, CBC #### [address] CO2 [Moles/Vol] 19.9 mmol/L Low 21.0-31.0 [facility] Comment on above: Performed By: #### B MP, CBC #### [address] Creatinine [Mass/Vol] 1.62 mg/dL High 0.70-1.30 [facility] Comment on above: Performed By: #### B MP, CBC #### [address] Creatinine Clr Calc Pharmacy 42.28 Normal [facility] Comment on above: Result Comment: PERF ORMED BY: [place] [address] PATHOLOGIST FLOOR CLERK OREN OWEN M.D. Performed By: #### B MP, CBC #### [address] GFR/1.73 sq M.predicted MDRD (S/P/Bld) [Vol rate/Area] 42.646 mL/min/{1.73_m2} Normal [facility] Comment on above: Performed By: #### B MP, CBC #### [address] Glucose [Mass/Vol] 145 mg/dL High 70-100 [facility] Comment on above: Result Comment: [facility] Glucose Reference Range is dependent on time and content of last meal. Glucose of more than 200 mg/dL in a nonstressed, ambulatory subject supports the diagnosis of Diabetes Mellitus. ADA recommended reference range Performed By: #### B MP, CBC #### [address] Potassium [Moles/Vol] 3.6 mmol/L Normal 3.5-5.1 [facility] Comment on above: Performed By: #### B MP, CBC #### [address] Sodium [Moles/Vol] 134 mmol/L Low 136-145 [facility] Comment on above: Performed By: #### B MP, CBC #### [address] Urea nitrogen [Mass/Vol] 32 mg/dL High 7-25 [facility] Comment on above: Performed By: #### B MP, CBC #### [address] Complete Blood Count Auto Di ffon 01-19-2024 Basophils (Bld) [#/Vol] 0.0 10*3/uL Normal 0.0-0.2 [facility] Comment on above: Result Comment: PERF ORMED BY: [place] [address] PATHOLOGIST FLOOR CLERK OREN OWEN M.D. Performed By: #### B MP, CBC #### [place] [address] [place] Basophils/100 WBC (Bld) 0.4 % Normal . [facility] Comment on above: Performed By: #### B MP, CBC #### [address] Eosinophils (Bld) [#/Vol] 0.0 10*3/uL Normal 0.0-0.45 [facility] Comment on above: Performed By: #### B MP, CBC #### [address] Eosinophils/100 WBC (Bld) 0.4 % Normal . [facility] Comment on above: Performed By: #### B MP, CBC #### [address] Erythrocyte distribution width (RBC) [Ratio] 15.6 % High 12.0-14.8 [facility] Comment on above: Performed By: #### B MP, CBC #### [address] Hematocrit (Bld) [Volume fraction] 37.1 % Low 38.8-50.0 [facility] Comment on above: Performed By: #### B MP, CBC #### [address] Hemoglobin (Bld) [Mass/Vol] 12.3 g/dL Low 13.0-17.0 [facility] Comment on above: Performed By: #### B MP, CBC #### [address] Lymphocytes (Bld) [#/Vol] 1.0 10*3/uL Normal 1.00-4.8 [facility] Comment on above: Performed By: #### B MP, CBC #### [address] Lymphocytes/100 WBC (Bld) 8.8 % Normal . [facility] Comment on above: Performed By: #### B MP, CBC #### [address] MCH (RBC) [Entitic mass] 28.6 pg Normal 27.5-35.2 [facility] Comment on above: Performed By: #### B MP, CBC #### [address] MCV (RBC) [Entitic vol] 86.5 fL Normal 83.5-101 [facility] Comment on above: Performed By: #### B MP, CBC #### [address] Mean Corpuscular HGB Conc 33.0 g/dL Normal 32.5-35.6 [facility] Comment on above: Performed By: #### B MP, CBC #### [address] Monocytes (Bld) [#/Vol] 1.3 10*3/uL High 0.0-0.8 [facility] Comment on above: Performed By: #### B MP, CBC #### [address] Monocytes/100 WBC (Bld) 11.9 % Normal . T jonatan [facility] Comment on above: Performed By: #### B MP, CBC #### [address] Neutrophils (Bld) [#/Vol] 8.6 10*3/uL High 1.8-7.7 [facility] Comment on above: Performed By: #### B MP, CBC #### [address] Neutrophils/100 WBC (Bld) 78.5 % Normal . [facility] Comment on above: Performed By: #### B MP, CBC #### [address] NRBC% 0.1 /100{WBC} Normal 0-0.5 [facility] Comment on above: Performed By: #### B MP, CBC #### [address] Platelet mean volume (Bld) [Entitic vol] 8.9 fL Normal 6.6-10.1 [facility] Comment on above: Performed By: #### B MP, CBC #### [address] Platelets (Bld) [#/Vol] 165 10*3/uL Normal 150-450 [facility] Comment on above: Performed By: #### B MP, CBC #### [address] [address] [place] RBC (Bld) [#/Vol] 4.30 10*6/uL Normal 3.90-5.60 [facility] Comment on above: Performed By: #### B MP, CBC #### [facility] [address] [place] [address] WBC (Bld) [#/Vol] 11.0 10*3/uL High 4.1-10.5 [facility] Comment on above: Performed By: #### B MP, CBC #### [facility] [address] [place] [address] ECG 12 lead ECGon 01-19-2024 ECG 12 lead ECG [facility] [place] [address] [place] [address] Electrocardiograph Report Signed Patient: Alex Anderson MR#: [id number] 38 : 1945 Acct:[id number] Age/Sex: 78 / M ADM Date: 01/16/24 Loc: Room: [address] [place] [address] Type: ADM IN Attending Dr: Nas Pruett [...] or before 16-Jan-2024) Inferolateral injury pattern ACUTE [place] / STEMI Abnormal ECG When compared with ECG of 18-Jan-2024 07:08, No significant change was found Confirmed by Misael Campbell ([id number]) on 01/20/2024 10:18:21 PM Referred By: Electronically Signed By: Misael Campbell Transcribed By: [facility] Signed By Misael Campbell MD 01/20/245 Normal [facility] Basic Metabolic Panelon 12-25 Anion gap [Moles/Vol] 11.5 mmol/L Normal 6.0-15.0 [facility] Comment on above: Performed By: #### C BC, BMP #### [facility] [address] Calcium [Mass/Vol] 8.7 mg/dL Normal 8.6-10.3 [facility] Comment on above: Performed By: #### C BC, BMP #### [facility] [address] [place] [address] [place] Chloride [Moles/Vol] 107 mmol/L Normal 98-107 [facility] Comment on above: Performed By: #### C BC, BMP #### [facility] [address] [place] [address] [place] CO2 [Moles/Vol] 21.2 mmol/L Normal 21.0-31.0 [facility] Comment on above: Performed By: #### C BC, BMP #### [place] [address] [place] Creatinine [Mass/Vol] 1.59 mg/dL High 0.70-1.30 [facility] Comment on above: Performed By: #### C BC, BMP #### [place] [address] [place] Creatinine Clr Calc Pharmacy 46.65 Normal [facility] Comment on above: Result Comment: PERF ORMED BY: [place] [address] PATHOLOGIST FLOOR CLERK OREN OWEN M.D. Performed By: #### C BC, BMP #### [place] [address] [place] GFR/1.73 sq M.predicted MDRD (S/P/Bld) [Vol rate/Area] 43.613 mL/min/{1.73_m2} Normal [facility] Comment on above: Performed By: #### C BC, BMP #### [address] Glucose [Mass/Vol] 125 mg/dL High 70-100 [facility] Comment on above: Result Comment: [place] Glucose Reference Range is dependent on time and content of last meal. Glucose of more than 200 mg/dL in a nonstressed, ambulatory subject supports the diagnosis of Diabetes Mellitus. ADA recommended reference range Performed By: #### C BC, BMP #### [address] Potassium [Moles/Vol] 3.7 mmol/L Normal 3.5-5.1 [facility] Comment on above: Performed By: #### C BC, BMP #### [address] Sodium [Moles/Vol] 136 mmol/L Normal 136-145 [facility] Comment on above: Performed By: #### C BC, BMP #### [address] Urea nitrogen [Mass/Vol] 29 mg/dL High 7-25 [facility] Comment on above: Performed By: #### C BC, BMP #### [address] Complete Blood Count Auto Di ffon 01-18-2024 Basophils (Bld) [#/Vol] 0.0 10*3/uL Normal 0.0-0.2 [facility] Comment on above: Result Comment: PERF ORMED BY: [place] [address] PATHOLOGIST FLOOR CLERK OREN OWEN M.D. Performed By: #### C BC, BMP #### [place] [address] [place] Basophils/100 WBC (Bld) 0.4 % Normal . [facility] Comment on above: Performed By: #### C BC, BMP #### [place] [address] [place] Eosinophils (Bld) [#/Vol] 0.0 10*3/uL Normal 0.0-0.45 [facility] Comment on above: Performed By: #### C BC, BMP #### [place] [address] [place] Eosinophils/100 WBC (Bld) 0.2 % Normal . [facility] Comment on above: Performed By: #### C BC, BMP #### [address] Erythrocyte distribution width (RBC) [Ratio] 15.9 % High 12.0-14.8 [facility] Comment on above: Performed By: #### C BC, BMP #### [address] Hematocrit (Bld) [Volume fraction] 38.2 % Low 38.8-50.0 [facility] Comment on above: Performed By: #### C BC, BMP #### [address] Hemoglobin (Bld) [Mass/Vol] 12.7 g/dL Low 13.0-17.0 [facility] Comment on above: Performed By: #### C BC, BMP #### [address] Lymphocytes (Bld) [#/Vol] 1.4 10*3/uL Normal 1.00-4.8 [facility] Comment on above: Performed By: #### C BC, BMP #### [address] Lymphocytes/100 WBC (Bld) 11.5 % Normal . [facility] Comment on above: Performed By: #### C BC, BMP #### [address] MCH (RBC) [Entitic mass] 28.5 pg Normal 27.5-35.2 [facility] Comment on above: Performed By: #### C BC, BMP #### [address] MCV (RBC) [Entitic vol] 85.4 fL Normal 83.5-101 T [facility] Comment on above: Performed By: #### C BC, BMP #### [address] Mean Corpuscular HGB Conc 33.4 g/dL Normal 32.5-35.6 [facility] Comment on above: Performed By: #### C BC, BMP #### [facility] [address] [place] [address] [place] Monocytes (Bld) [#/Vol] 1.5 10*3/uL High 0.0-0.8 [facility] Comment on above: Performed By: #### C BC, BMP #### [facility] [address] [place] [address] [place] Monocytes/100 WBC (Bld) 12.8 % Normal . [facility] Comment on above: Performed By: #### C BC, BMP #### [facility] [address] [place] [address] [place] Neutrophils (Bld) [#/Vol] 9.1 10*3/uL High 1.8-7.7 [facility] Comment on above: Performed By: #### C BC, BMP #### [facility] [address] [place] [address] [place] Neutrophils/100 WBC (Bld) 75.1 % Normal . [facility] Comment on above: Performed By: #### C BC, BMP #### [place] [address] [place] NRBC% 0.0 /100{WBC} Normal 0-0.5 [facility] Comment on above: Performed By: #### C BC, BMP #### [address] Platelet mean volume (Bld) [Entitic vol] 9.3 fL Normal 6.6-10.1 [facility] Comment on above: Performed By: #### C BC, BMP #### [facility] [address] [place] [address] [place] Platelets (Bld) [#/Vol] 131 10*3/uL Low 150-450 [facility] Comment on above: Performed By: #### C BC, BMP #### [place] [address] [place] RBC (Bld) [#/Vol] 4.47 10*6/uL Normal 3.90-5.60 [facility] Comment on above: Performed By: #### C BC, BMP #### [facility] [address] WBC (Bld) [#/Vol] 12.1 10*3/uL High 4.1-10.5 [facility] Comment on above: Performed By: #### C BC, BMP #### [address] [address] [facility] ECG 12 lead ECGon 01-18-2024 ECG 12 lead ECG [facility] [place] [address] [place] [address] Electrocardiograph Report Signed Patient: Alex Anderson MR#: [id number] [birth year] : 1945 Acct:[id number] Age/Sex: 78 / M ADM Date: 01/16/24 Loc: Room: [address] [place] [address] Type: ADM IN Attending Dr: Nas Pruett [...] 11:02:49 AM Referred By: Electronically Signed By: AAN CASTRO MD Transcribed By: MUS Signed By Ana Castro MD 0 01/18/24 1102 Normal [facility] Basic Metabolic Panelon 12-25 Anion gap [Moles/Vol] 12.3 mmol/L Normal 6.0-15.0 [facility] Comment on above: Performed By: #### B MP, CBC #### [place] [id number] [facility] Calcium [Mass/Vol] 8.9 mg/dL Normal 8.6-10.3 [facility] Comment on above: Performed By: #### B MP, CBC #### [address] Chloride [Moles/Vol] 105 mmol/L Normal 98-107 [facility] Comment on above: Performed By: #### B MP, CBC #### [address] CO2 [Moles/Vol] 22.2 mmol/L Normal 21.0-31.0 [facility] Comment on above: Performed By: #### B MP, CBC #### [address] Creatinine [Mass/Vol] 1.70 mg/dL High 0.70-1.30 [facility] Comment on above: Performed By: #### B MP, CBC #### [place] [address] [place] Creatinine Clr Calc Pharmacy 44.35 Normal [facility] Comment on above: Performed By: #### B MP, CBC #### [address] GFR/1.73 sq M.predicted MDRD (S/P/Bld) [Vol rate/Area] 40.249 mL/min/{1.73_m2} Normal [facility] Comment on above: Performed By: #### B ROBYN, CBC #### [address] Glucose [Mass/Vol] 115 mg/dL High 70-100 [facility] Comment on above: Result Comment: [place] Glucose Reference Range is dependent on time and content of last meal. Glucose of more than 200 mg/dL in a nonstressed, ambulatory subject supports the diagnosis of Diabetes Mellitus. ADA recommended reference range Performed By: #### B MP, CBC #### [address] Potassium [Moles/Vol] 4.5 mmol/L Normal 3.5-5.1 [facility] Comment on above: Performed By: #### B MP, CBC #### [facility] [address] Sodium [Moles/Vol] 135 mmol/L Low 136-145 [facility] Comment on above: Performed By: #### B MP, CBC #### [facility] [address] Urea nitrogen [Mass/Vol] 26 mg/dL High 7-25 [facility] Comment on above: Performed By: #### B MP, CBC #### [facility] [address] Capillary blood glucose elan urement by glucometer (mass/volume)Ordered By: Nas Pruett on 01-17-2024 Glucose [Mass/Vol] 126 mg/dL Normal [facility] Comment on above: Random Glucose Refer ence Range is dependent on time and content of last meal. Glucose of more than 200 mg/dL in a nonstressed, ambulatory subject supports the diagnosis of Diabetes Mellitus. Result Comment: [place] om Glucose Reference Range is dependent on time and content of last meal. Glucose of more than 200 mg/dL in a nonstressed, ambulatory subject supports the diagnosis of Diabetes Mellitus. PERFORMED BY: [place] [address] PATHOLOGIST FLOOR CLERK OREN OWEN M.D. Performed By: #### A DDMOEUAJONATHAN, CUU #### [address] Cholesterol [Mass/volume] in Serum or PlasmaOrdered By: Nas Pruett on 01-17-2024 Cholesterol [Mass/Vol] 74 mg/dL Low 140-200 [facility] Comment on above: Chol less than 200 m g/dl low riskChol 201-239 mg/dl borderline riskChol 240 mg/dl and greater high risk Result Comment: Chol less than 200 mg/dl low risk Chol 201-239 mg/dl borderline risk Chol 240 mg/dl and greater high risk Performed By: #### B MP, CBC #### [address] Cholesterol in LDL Calc [Mas s/Vol]Ordered By: Nas Pruett on 01-17-2024 Cholesterol in LDL [Mass/Vol] 28 mg/dL 0-100 [facility] Comment on above: LDL ATP III CLASSIFI CATIONLDL less than 100 mg/dL OptimalLDL 100-129 mg/dL Near or above optimalLDL 130-159 mg/dL Borderline highLDL 160-189 mg/dL HighLDL greater than 189 mg/dL Very high Cholesterol in VLDL Calc [Ma ss/Vol]Ordered By: Nas Pruett on 01-17-2024 Cholesterol in VLDL [Mass/Vol] 13 mg/dL [facility] Dipstick and Microscopicon 0 01-17-2024 Appearance (U) Cloudy Critically abnormal Clear [facility] Comment on above: Order Comment: Name Collection Type:: Villarreal Catheter Performed By: #### A DDONUAPLUS, CUU #### [facility] [address] [place] [id number] [place] Bacteria,Urine 2+ High None Seen [facility] Comment on above: Order Comment: Name Collection Type:: Villarreal Catheter Performed By: #### A DDONUAPLUS, CUU #### [facility] [address] [place] [id number] [place] Bilirubin,Urine Negative Normal Negative [facility] Comment on above: Order Comment: Name Collection Type:: Villarreal Catheter Performed By: #### A DDONUAPLUS, CUU #### [facility] [address] [place] [address] [place] Color (U) Light-Yellow Normal Yellow [facility] Comment on above: Order Comment: Name Collection Type:: Villarreal Catheter Performed By: #### A DDONUAPLUS, CUU #### [facility] [address] [place] [address] [place] Glucose Ql (U) Normal Normal Normal [facility] Comment on above: Order Comment: Name Collection Type:: Villarreal Catheter Performed By: #### A DDONUAPLUS, CUU #### [facility] [address] [place] [address] [place] Hyaline Casts,Urine None Normal 0-8 [facility] Comment on above: Order Comment: Name Collection Type:: Villarreal Catheter Performed By: #### A DDONUAPLUS, CUU #### [address] Ketones Ql (U) Negative Normal Negative [facility] Comment on above: Order Comment: Name Collection Type:: Villarreal Catheter Performed By: #### A DDONUAPLUS, CUU #### [address] Leukocyte esterase Test strip Ql (U) 3+ High Negative [facility] Comment on above: Order Comment: Name Collection Type:: Villarreal Catheter Performed By: #### A DDONUAPLUS, CUU #### [address] Mucus,Urine Rare Normal [facility] Comment on above: Order Comment: Name Collection Type:: Villarreal Catheter Result Comment: PERF ORMED BY: [place] [address] PATHOLOGIST FLOOR CLERK OREN OWEN M.D. Performed By: #### A DDONUAPLUS, CUU #### [address] Nitrite,Urine Negative Normal Negative [facility] Comment on above: Order Comment: Name Collection Type:: Villarreal Catheter Performed By: #### A DDONUAPLUS, CUU #### [address] Occult Blood,Urine Trace High Negative [facility] Comment on above: Order Comment: Name Collection Type:: Villarreal Catheter Result Comment: PERF ORMED BY: [place] [address] PATHOLOGIST FLOOR CLERK OREN OWEN M.D. Performed By: #### A DDONUAPLUS, CUU #### [address] pH (U) 6.0 [pH] Normal 5.0-9.0 [facility] Comment on above: Order Comment: Name Collection Type:: Villarreal Catheter Performed By: #### A DDONUAPLUS, CUU #### [place] [address] [place] Protein,Urine Trace High Negative [facility] Comment on above: Order Comment: Name Collection Type:: Villarreal Catheter Performed By: #### A DDONUAPLUS, CUU #### [place] [address] [place] RBC,Urine 3-4 Normal 0-4 [facility] Comment on above: Order Comment: Name Collection Type:: Villarreal Catheter Performed By: #### A DDONUAPLUS, CUU #### [place] [address] [place] Specificy [place],Urine 1.018 Normal 1.00 1-1.03 0 [facility] Comment on above: Order Comment: Name Collection Type:: Villarreal Catheter Performed By: #### A DDONUAPLUS, CUU #### [place] [address] [place] Squamous Epithelial Cell,Urine 1-2 Normal 0-2 [facility] Comment on above: Order Comment: Name Collection Type:: Villarreal Catheter Performed By: #### A DDONUAPLUS, CUU #### [place] [address] [place] Urobilinogen,Urine Normal Normal Normal [facility] Comment on above: Order Comment: Name Collection Type:: Villarreal Catheter Performed By: #### A DDONUAPLUS, CUU #### [place] [address] [place] WBC,Urine 10-19 High 0-4 [facility] Comment on above: Order Comment: Name Collection Type:: Villarreal Catheter Performed By: #### A DDONUAPLUS, CUU #### [place] [address] [place] ECG 12 lead ECGon 01-17-2024 ECG 12 lead ECG [facility] [place] [address] Electrocardiograph Report Signed Patient: Alex Anderson MR#: [id number] [birth year] : 1945 Acct:[id number] Age/Sex: 78 / M ADM Date: 01/16/24 Loc: Room: 2I1513-0 Type: ADM IN Attending Dr: Nas Pruett [...] or before 16-Jan-2024) Inferior injury pattern ACUTE [place] / STEMI Abnormal ECG When compared with ECG of 16-Jan-2024 19:53, (Unconfirmed) Serial changes of evolving Septal infarct present Confirmed by ANA CASTRO MD ([facility]) on 01/17/2024 9:52:42 AM Referred By: Electronically Signed By: ANA CASTRO MD Transcribed By: MUS Signed By Ana Castro MD 0 01/17/24 0952 Normal [facility] ECH echo transthoracicon ECH echo transthoracic [facility] [place] [address] Echocardiogram Signed Patient: Alex Anderson MR#: [id number] [birth year] : 1945 Acct:[id number] Age/Sex: 78 / M ADM Date: 01/16/24 Loc: Room: 1A3665-0 Type: ADM IN Attending Dr: Nas Pruett [...] Ana Castro MD 01/17/24 1150 Normal [facility] Glucose Poct Glucometerson 0 01-17-2024 Glucose [Mass/Vol] 115 mg/dL Normal [facility] Comment on above: Result Comment: [place] om Glucose Reference Range is dependent on time and content of last meal. Glucose of more than 200 mg/dL in a nonstressed, ambulatory subject supports the diagnosis of Diabetes Mellitus. PERFORMED BY: [place] [address] PATHOLOGIST FLOOR CLERK OREN OWEN M.D. Performed By: #### A MAISHA GIFFORDU #### [address] Glucose [Mass/Vol] 114 mg/dL Normal [facility] Comment on above: Result Comment: [place] Glucose Reference Range is dependent on time and content of last meal. Glucose of more than 200 mg/dL in a nonstressed, ambulatory subject supports the diagnosis of Diabetes Mellitus. PERFORMED BY: [place] [address] PATHOLOGIST FLOOR CLERK OREN OWEN M.D. Performed By: #### B MP, CBC #### [address] Glucose [Mass/Vol] 125 mg/dL Normal [facility] Comment on above: Result Comment: [place] Glucose Reference Range is dependent on time and content of last meal. Glucose of more than 200 mg/dL in a nonstressed, ambulatory subject supports the diagnosis of Diabetes Mellitus. PERFORMED BY: [place] [address] PATHOLOGIST FLOOR CLERK OREN OWEN M.D. Performed By: #### B MP, CBC #### [place] [id number] [facility] Lipid Panelon 01-17-2024 LDL Cholesterol,Calculated 28 mg/dL Normal 0-100 [facility] Comment on above: Result Comment: LDL ATP III CLASSIFICATION LDL less than 100 mg/dL Optimal LDL 100-129 mg/dL Near or above optimal LDL 130-159 mg/dL Borderline high LDL 160-189 mg/dL High LDL greater than 189 mg/dL Very high Performed By: #### B MP, CBC #### [address] Triglyceride w/Reflex 67 mg/dL Normal 0-149 [facility] Comment on above: Result Comment: TRIG ATP III CLASSIFICATION TRIG less than 150 mg/dL Normal TRIG 150-199 mg/dL Borderline high TRIG 200-500 mg/dL High TRIG greater than 500 mg/dL Very high Standard traceable to the Center for Disease Conrtrol and Prevention (CDC) test method. Performed By: #### B MP, CBC #### [address] VLDL CHOLESTEROL 13 mg/dL Normal [facility] Comment on above: Performed By: #### B MP, CBC #### [address] Platelet adequacy [Presence] in Blood by Light microscopyOrdered By: Nas Pruett on 01-17-2024 Platelets LM Ql (Bld) Decreased Normal [facility] Platelet morphology finding [Identifier] in BloodOrdered By: Nas Pruett on 01-17-2024 Platelet morphology finding Nom (Bld) Normal Normal [facility] RBC morphologyOrdered By: Nas Pruett on 01-17-2024 RBC morphology finding Nom (Bld) N/A [facility] Scan and CBCon 01-17-2024 Basophils (Bld) [#/Vol] 0.1 10*3/uL Normal 0.0-0.2 [facility] Comment on above: Result Comment: PERF ORMED BY: [place] [address] PATHOLOGIST FLOOR CLERK OREN OWEN M.D. Performed By: #### B MP, CBC #### [address] Basophils/100 WBC (Bld) 0.4 % Normal . [facility] Comment on above: Performed By: #### B MP, CBC #### [address] [place] [address] [place] Eosinophils (Bld) [#/Vol] 0.0 10*3/uL Normal 0.0-0.45 [facility] Comment on above: Performed By: #### B MP, CBC #### [address] Eosinophils/100 WBC (Bld) 0.0 % Normal . [facility] Comment on above: Performed By: #### B MP, CBC #### [address] Erythrocyte distribution width (RBC) [Ratio] 15.8 % High 12.0-14.8 [facility] Comment on above: Performed By: #### B MP, CBC #### [address] Hematocrit (Bld) [Volume fraction] 38.4 % Low 38.8-50.0 [facility] Comment on above: Performed By: #### B MP, CBC #### [address] Hemoglobin (Bld) [Mass/Vol] 12.7 g/dL Low 13.0-17.0 [facility] Comment on above: Performed By: #### B MP, CBC #### [address] Lymphocytes (Bld) [#/Vol] 1.2 10*3/uL Normal 1.00-4.8 [facility] Comment on above: Performed By: #### B MP, CBC #### [address] Lymphocytes/100 WBC (Bld) 6.9 % Normal . [facility] Comment on above: Performed By: #### B MP, CBC #### [address] MCH (RBC) [Entitic mass] 28.4 pg Normal 27.5-35.2 [facility] Comment on above: Performed By: #### B MP, CBC #### [address] [address] [place] MCV (RBC) [Entitic vol] 86.1 fL Normal 83.5-101 [facility] Comment on above: Performed By: #### B MP, CBC #### [address] Mean Corpuscular HGB Conc 33.0 g/dL Normal 32.5-35.6 [facility] Comment on above: Performed By: #### B MP, CBC #### [address] Monocytes (Bld) [#/Vol] 2.8 10*3/uL High 0.0-0.8 [facility] Comment on above: Performed By: #### B MP, CBC #### [address] Monocytes/100 WBC (Bld) 15.6 % Normal . [facility] Comment on above: Performed By: #### B MP, CBC #### [address] Neutrophils (Bld) [#/Vol] 13.6 10*3/uL High 1.8-7.7 [facility] Comment on above: Performed By: #### B MP, CBC #### [address] Neutrophils/100 WBC (Bld) 77.1 % Normal . [facility] Comment on above: Performed By: #### B MP, CBC #### [address] NRBC% 0.0 /100{WBC} Normal 0-0.5 [facility] Comment on above: Performed By: #### B MP, CBC #### [address] Platelet Estimate Decreased Normal Normal [facility] Comment on above: Performed By: #### B MP, CBC #### [address] Platelet mean volume (Bld) [Entitic vol] 9.0 fL Normal 6.6-10.1 [facility] Comment on above: Performed By: #### B MP, CBC #### [address] Platelet Morphology Normal Normal Normal [facility] Comment on above: Result Comment: PERF ORMED BY: [place] [address] PATHOLOGIST FLOOR CLERK OREN OWEN M.D. Performed By: #### B MP, CBC #### [address] Platelets (Bld) [#/Vol] 135 10*3/uL Low 150-450 [facility] Comment on above: Performed By: #### B MP, CBC #### [address] RBC (Bld) [#/Vol] 4.46 10*6/uL Normal 3.90-5.60 [facility] Comment on above: Performed By: #### B MP, CBC #### [address] WBC (Bld) [#/Vol] 17.7 10*3/uL High 4.1-10.5 [facility] Comment on above: Performed By: #### B MP, CBC #### [address] Serum or plasma high density lipoprotein (HDL) cholesterol measurementOrdered By: Nas Pruett on 01-17-2024 Cholesterol in HDL [Mass/Vol] 33 mg/dL Normal 23-92 [facility] Comment on above: HDL CHOL ATP-III CLA SSIFICATION Cardiovascular RiskHDL > or equal to 60 mg/dL LOWHDL < 40 mg/dL HIGH Result Comment: HDL CHOL ATP-III CLASSIFICATION Cardiovascular Risk HDL > or equal to 60 mg/dL LOW HDL < 40 mg/dL HIGH Performed By: #### B MP, CBC #### [address] Serum or plasma total choles terol/high density lipoprotein (HDL) cholesterol mass ratOrdered By: Nas Pruett on 01-17-2024 Cholesterol.total/Sonya sterol in HDL [Mass ratio] 2.2 {ratio} Normal <5.0 [facility] Comment on above: Result Comment: PERF ORMED BY: [place] [address] PATHOLOGIST FLOOR CLERK OREN OWEN M.D. Performed By: #### B MP, CBC #### [facility] [address] [place] [address] Triglyceride [Mass/volume] i n Serum or PlasmaOrdered By: Nas Pruett on 01-17-2024 Triglyceride [Mass/Vol] 67 mg/dL 0-149 [facility] Comment on above: TRIG ATP III CLASSIF ICATIONTRIG less than 150 mg/dL NormalTRIG 150-199 mg/dL Borderline highTRIG 200-500 mg/dL High TRIG greater than 500 mg/dL Very highStandard traceable to the Center for Disease Conrtrol and Prevention (CDC) test method. Troponin I High Sensitivityo n 01-17-2024 Troponin I High Sensitivity 12882.6 pg/mL Off scale high 0.0-20.0 [facility] Comment on above: Result Comment: Crit ical Result I_TnIHS_d:99209.6 Called to and read back by: WU MCDANIEL at: 01/17/2024 06:17:54 by:[id number] PERFORMED BY: [place] [address] PATHOLOGIST FLOOR CLERK OREN OWEN M.D. Performed By: #### B MP, CBC #### [place] [id number] [facility] Troponin I.cardiac [Mass/vol ume] in Serum or Plasma by Detection limit <= 0.01 ng/Ordered By: Nas Pruett on 01-17-2024 Troponin I.cardiac DL <= 0.01 ng/mL [Mass/Vol] 64988.6 pg/mL High 0.0-20.0 [facility] Comment on above: Critical Result I_Tn IHS_d:34128.6 Called to and read back by: WU MCDANIEL at: 01/17/2024 06:17:54 by:[id number] Urine Cultureon 01-17-2024 Bacteria identified Cx Nom (U) ORGANISM: Enterococcus faecalis (O:ENTFAC) [place] Count >100,000 Aerobic RITESH Charge (PCMIC38) SUSCEPTIBILITY [...] RESISTANT TO ALL B-LACTAM DRUGS. PERFORMED BY: [place] [address] PATHOLOGIST FLOOR CLERK OREN OWEN M.D. Normal [facility] Comment on above: Performed By: #### C UU #### [address] Urine culture routineOrdered By: Justina Lara on 01-17-2024 Bacteria identified Cx Nom (U) Enterococcus faecalis Abnormal [facility] XR chest 1V portableon 01-16 XR chest 1V portable [facility] [place] [address] XRay Report Signed Patient: Alex Anderson MR#: [id number] [birth year] : 1945 Acct:[id number] Age/Sex: 78 / M ADM Date: 01/16/24 Loc: Room: [address] [place] [address] Type: ADM IN Attending Dr: Nas Pruett [...] Corky Max M.D.01/17/2024 11:34 AM Dictation Location: [place] [address] Transcribed By: [facility] 01/17/24 1134 Dictated By: Corky Max II, MD 01/17/24 1132 Signed By: 01/17/24 1134 Normal [facility] ECG 12 lead ECGon 01-16-2024 ECG 12 lead ECG [facility] [place] [address] Electrocardiograph Report Signed Patient: Alex Anderson MR#: [id number] [birth year] : 1945 Acct:[id number] Age/Sex: 78 / M ADM Date: 01/16/24 Loc: Room: [address] [place] [address] Type: ADM IN Attending Dr: Nas Pruett [...] Castro MD 0 01/17/24 0952 Normal [facility] ECG 12 lead ECG [facility] Main [place] [address] [place] [address] Electrocardiograph Report Signed Patient: Alex Anderson MR#: [id number] [birth year] : 1945 Acct:[id number] Age/Sex: 78 / M ADM Date: 01/16/24 Loc: Room: [address] [place] [address] Type: ADM IN Attending Dr: Nas Pruett [...] Castro MD 0 01/17/24 0057 Normal [facility] Glucose Poct Glucometerson 0 01-16-2024 Commemt1 Glu2: Cleaned Meter Normal [facility] Comment on above: Result Comment: PERF ORMED BY: [place] [address] PATHOLOGIST FLOOR CLERK OREN OWEN M.D. Performed By: #### A JHONNY GIFFORD #### [facility] [address] [place] [address] [place] Glucose [Mass/Vol] 118 mg/dL Normal [facility] Comment on above: Result Comment: [place] om Glucose Reference Range is dependent on time and content of last meal. Glucose of more than 200 mg/dL in a nonstressed, ambulatory subject supports the diagnosis of Diabetes Mellitus. Performed By: #### A DDONUAPLUS, CUU #### [address] Glucose [Mass/Vol] 119 mg/dL Normal [facility] Comment on above: Result Comment: [place] om Glucose Reference Range is dependent on time and content of last meal. Glucose of more than 200 mg/dL in a nonstressed, ambulatory subject supports the diagnosis of Diabetes Mellitus. PERFORMED BY: [place] [address] PATHOLOGIST FLOOR CLERK OREN OWEN M.D. Performed By: #### A NAVUAJONATHAN, CUU #### [address] No Panel InformationOrdered By: Nas Pruett on 01-16-2024 Bedside Glucose Comment Glu2: cleaned meter [facility] Troponin I High Sensitivityo n 01-16-2024 Troponin I High Sensitivity 93537.2 pg/mL Off scale high 0.0-20.0 [facility] Comment on above: Result Comment: Crit ical Result I_TnIHS_d:16933.2 Called to and read back by: BRIDGETTE LUIS at: 01/16/2024 20:40:51 by:[id number] PERFORMED BY: [place] [address] PATHOLOGIST FLOOR CLERK OREN OWEN M.D. Performed By: #### B MP, CBC #### [address] Troponin I High Sensitivity 964430.4 pg/mL Off scale high 0.0-20.0 [facility] Comment on above: Result Comment: Crit ical Result I_TnIHS_d:499229.4 Called to and read back by: BROOKE CANDELARIA at: 01/16/2024 18:52:06 by:[email or web address] PERFORMED BY: [place] [address] PATHOLOGIST FLOOR CLERK OREN OWEN M.D. Performed By: #### A ИРИНА, CUU #### [place] [id number] [facility] Troponin I High Sensitivity 430734.2 pg/mL Off scale high 0.0-20.0 [facility] Comment on above: Result Comment: Crit ical Result I_TnIHS_d:643164.2 Called to and read back by: BROOKE CANDELARIA at: 01/16/2024 16:28:58 by:[id number] PERFORMED BY: [place] [address] PATHOLOGIST FLOOR CLERK OREN OWEN M.D. Performed By: #### B MP, CBC #### [address] Troponin I High Sensitivity 51212.4 pg/mL Off scale high 0.0-20.0 [facility] Comment on above: Result Comment: Crit ical Result I_TnIHS_d:54931.4 Called to and read back by: BROOKE CANDELARIA at: 01/16/2024 14:15:37 by:[email or web address] PERFORMED BY: [place] [address] PATHOLOGIST FLOOR CLERK OREN OWEN M.D. Performed By: #### A ИРИНА, CUU #### [place] [id number] [facility] No Panel InformationOrdered By: Willy Lambert on 01-14-2024 Miscellaneous Pathology Test See comment [facility] Comment on above: See report. Scanned copy available in EMR. Pathology Request for Lab Co rpon 01-14-2024 Pathology Request for Lab Ashley Normal [facility] Comment on above: Order Comment: PATHO LOGY GI SPECIMEN Result Comment: See report. Scanned copy available in EMR. PERFORMED BY: [place] [address] PATHOLOGIST FLOOR CLERK OREN OWEN M.D. Performed By: #### P ATH TO [facility] #### [facility] [address] [place] [address] [place] Cholesterol [Mass/volume] in Serum or PlasmaOrdered By: Teo Al on 12-26-2023 Cholesterol [Mass/Vol] 91 mg/dL Low 140-200 [facility] Comment on above: Chol less than 200 m g/dl low riskChol 201-239 mg/dl borderline riskChol 240 mg/dl and greater high risk Result Comment: Chol less than 200 mg/dl low risk Chol 201-239 mg/dl borderline risk Chol 240 mg/dl and greater high risk Performed By: #### A DORAONUAJONATHAN, CUU #### [facility] [address] [place] [id number] [place] Cholesterol in LDL Calc [Mas s/Vol]Ordered By: Teo Al on 12-26-2023 Cholesterol in LDL [Mass/Vol] 37 mg/dL 0-100 [facility] Comment on above: LDL ATP III CLASSIFI CATIONLDL less than 100 mg/dL OptimalLDL 100-129 mg/dL Near or above optimalLDL 130-159 mg/dL Borderline highLDL 160-189 mg/dL HighLDL greater than 189 mg/dL Very high Cholesterol in VLDL Calc [Ma ss/Vol]Ordered By: Teo Al on 12-26-2023 Cholesterol in VLDL [Mass/Vol] 18 mg/dL [facility] Lipid Panelon 12-26-2023 LDL Cholesterol,Calculated 37 mg/dL Normal 0-100 [facility] Comment on above: Result Comment: LDL ATP III CLASSIFICATION LDL less than 100 mg/dL Optimal LDL 100-129 mg/dL Near or above optimal LDL 130-159 mg/dL Borderline high LDL 160-189 mg/dL High LDL greater than 189 mg/dL Very high Performed By: #### A DDONUAPLUS, CUU #### [facility] [address] [place] [id number] [place] Triglyceride w/Reflex 94 mg/dL Normal 0-149 [facility] Comment on above: Result Comment: TRIG ATP III CLASSIFICATION TRIG less than 150 mg/dL Normal TRIG 150-199 mg/dL Borderline high TRIG 200-500 mg/dL High TRIG greater than 500 mg/dL Very high Standard traceable to the Center for Disease Conrtrol and Prevention (CDC) test method. Performed By: #### A ИРИНА, CUU #### [address] VLDL CHOLESTEROL 18 mg/dL Normal [facility] Comment on above: Performed By: #### A ИРИНА, CUU #### [address] Serum or plasma high density lipoprotein (HDL) cholesterol measurementOrdered By: Teo Al on 12-26-2023 Cholesterol in HDL [Mass/Vol] 35 mg/dL Normal 23-92 [facility] Comment on above: HDL CHOL ATP-III CLA SSIFICATION Cardiovascular RiskHDL > or equal to 60 mg/dL LOWHDL < 40 mg/dL HIGH Result Comment: HDL CHOL ATP-III CLASSIFICATION Cardiovascular Risk HDL > or equal to 60 mg/dL LOW HDL < 40 mg/dL HIGH Performed By: #### A ИРИНА, CUU #### [address] Serum or plasma total choles terol/high density lipoprotein (HDL) cholesterol mass ratOrdered By: Teo Al on 12-26-2023 Cholesterol.total/Sonya sterol in HDL [Mass ratio] 2.6 {ratio} Normal <5.0 [facility] Comment on above: Result Comment: PERF ORMED BY: [place] [address] PATHOLOGIST FLOOR CLERK OREN OWEN M.D. Performed By: #### A ИРИНА, CUU #### [address] Triglyceride [Mass/volume] i n Serum or PlasmaOrdered By: Teo Al on 12-26-2023 Triglyceride [Mass/Vol] 94 mg/dL 0-149 [facility] Comment on above: TRIG ATP III CLASSIF ICATIONTRIG less than 150 mg/dL NormalTRIG 150-199 mg/dL Borderline highTRIG 200-500 mg/dL High TRIG greater than 500 mg/dL Very highStandard traceable to the Center for Disease Conrtrol and Prevention (CDC) test method. Ambulatory Visit Summaryon 0 11-04-2023 Ambulatory Visit Summary ALXE ANDERSON :1945 Visit Date:11/04/2023 Ambulatory Visit Instructions [...] APRN, [place] X Where: [facility] Erythrocyte distribution wid th Auto (RBC) [Ratio]on 10-16-2023 Erythrocyte distribution width (RBC) [Ratio] 15.4 % High 11.0-15.0 [facility] Hematocrit Auto (Bld) [Volum e fraction]on 10-16-2023 Hematocrit (Bld) [Volume fraction] 41.3 % Low 42.0-54.0 [facility] Hemoglobin [Mass/volume] in Bloodon 10-16-2023 Hemoglobin (Bld) [Mass/Vol] 13.3 g/dL Low 14.0-18.0 [facility] Laboratory - Chemistry and C hemistry - challengeon 10-16-2023 Magnesium [Mass/Vol] 2.1 mg/dL 1.8-2.4 [facility] Urate [Mass/Vol] 5.9 mg/dL 3.5-7.2 [facility] Leukocytes [#/volume] correc phil for nucleated erythrocytes in Blood by Automated counon 10-16-2023 WBC corrected for nucl RBC Auto (Bld) [#/Vol] 9.3 10 3/uL 4.0-11.0 [facility] MCH Auto (RBC) [Entitic mass ]on 10-16-2023 MCH (RBC) [Entitic mass] 27.8 pg 25.9-34.0 [facility] MCHC Auto (RBC) [Mass/Vol]on 10-16-2023 MCHC (RBC) [Mass/Vol] 32.2 g/dL 29.9-35.2 [facility] MCV Auto (RBC) [Entitic vol] on 10-16-2023 MCV (RBC) [Entitic vol] 86.2 fL 80.0-94.0 [facility] No Panel Informationon 10-15 Phosphorus Level 2.7 mg/dL 2.6-4.7 [facility] Platelet mean volume Auto (B ld) [Entitic vol]on 10-16-2023 Platelet mean volume (Bld) [Entitic vol] 10.1 fL 9.5-13.5 [facility] Platelets Auto (Bld) [#/Vol] on 10-16-2023 Platelets (Bld) [#/Vol] 197 10 3/uL 150-450 [facility] RBC Auto (Bld) [#/Vol]on RBC (Bld) [#/Vol] 4.79 10 6/uL 4.70-6.10 [facility] UroVysion Fish and Urine Cyt o (P4 Labs)on 10-10-2023 UVFISH & UC Diagnosis Info Invalid Interpretation Code [facility] Comment on above: Result Comment: A:Ur ine,Urine:Bladder [...] on: 10/10/2023 11:17:43 Performed By: #### 1 [id number] #### [facility] Laboratory [address] [place] [address] Consent for Procedure/Surger yon 10-08-2023 Consent for Procedure/Surgery [id number]#1.00TIFF [facility] Ambulatory Visit Summaryon 0 [...] 10:30 AM EDT Where: [facility] Ambulatory Visit Summaryon 0 10-03-2023 [...] [facility] [address] [place] [phone] Medications What How Much When Instructions Unchanged [...] is inserted (more content not included)... Normal [facility] Health Recordson 2023 [facility] [id number]#1.00TIFF Normal [facility] Patient Educationon 10-03-19 24 Patient Education [...] these instructions at home: Medicines ? Take ivrq-tmj-ymkrjyt and prescription medicines only as told by [...] provider. Document Revised: 01/31/2021 Document Reviewed: 01/31/2021 [employer] Patient Education ? 2022 [employer] [facility] UroVysion Fish and Urine Cyt o ([facility]4 Labs)on 10-03-2023 [facility] Method of Extraction Bladder Wash [facility] Comment on above: Performed By: #### 1 [id number] #### [facility] Laboratory [address] [facility] [place] [address] [facility] Number of Jars 1 Invalid Interpretation Code [facility] Comment on above: Performed By: #### 1 [id number] #### [facility] Laboratory [address] [facility] [place] [address] [facility] Specimen Urine Normal [facility] Comment on above: Performed By: #### 1 [id number] #### [facility] Laboratory [address] [facility] [place] [address] [facility] Type of Service Technical Only Normal [facility] Comment on above: Performed By: #### 1 [id number] #### [facility] Laboratory [address] [facility] [place] [address] Urology Office/Clinic Noteon 10-03-2023 Urology Office/Clinic Note [...] with Villarreal. Most recently, pt presented to [facility] ER 09/29/23 and 09/30/23 due to catheter [...] [facility] [address], [place] [phone] Additional Instructions: Cysto/FISH/cytol in 6 mos & [...] with uri (more content not included)... Normal [facility] Comment on above: Result Comment: Elec tronically Signed By: Katia JACOBS MD\.br\Date and Time Signed: 10/03/23 14:24 EDT\.br\Electronically Co-Signed By: Na Gerardo.br\Date and Time Co-Signed: 10/03/23 14:19 EDT ED Note-Physicianon 10-02-19 ED Note-Physician [id number]#1.00TIFF Normal [facility] Laboratory - Chemistry and C hemistry - challengeon 09-30-2023 Bilirubin Ql (U) Negative [facility] Glucose (U) [Mass/Vol] [facility] Ketones Ql (U) Negative [facility] pH (U) 7.0 [pH] [facility] Specific gravity (U) [Rel density] 1.010 [facility] Urobilinogen (U) [Mass/Vol] 0.2 mg/dL [facility] Laboratory - Specimen inform ationon 09-30-2023 Color (U) LtYellow [facility] Laboratory - Urinalysison Leukocyte esterase Test strip Ql (U) Large [facility] Nitrite Ql (U) Positive [facility] Protein Ql (U) 30 [facility] CT abdomen pelvis wo conon 0 08-18-2023 CT abdomen pelvis wo con [facility] [place] [address] CT Scan Report Signed Patient: Alex Anderson MR#: [id number] 36 : 1945 Acct:[id number] Age/Sex: 77 / M ADM Date: 08/18/23 Loc: CT Room: Type: [facility] Attending Dr: Margarito Valentine MD Copies to: [...] aneurysm suboptimally evaluated without IV contrast. The [place] aneurysmal sac has decreased in size now [...] aortic aneurysm with interval decrease of the [place] aneurysmal sac since the prior CTA study. The stent is suboptimally evaluated due to lack of IV contrast. 2. Prostatomegaly with Villarreal catheter in place. There appears to be urinary bladder wall thickening and inflammatory changes suspicious for cystitis. Correlation with urinalysis is recommended. Impression dictated by: Rogelio Agustin Jr., ElizabethOSigrid08/18/2023 3:18 PM Dictation Location: [place] [address] Transcribed By: [facility] 08/18/23 1518 Dictated By: Rogelio Agustin Jr, DO 08/18/23 1503 Signed By: 08/18/23 1518 Normal [facility] ISTAT XRay CREon 08-18-2023 ISTAT GFR 26.776 Normal [facility] Comment on above: Result Comment: PERF ORMED BY: [place] [address] PATHOLOGIST FLOOR CLERK OREN OWEN M.D. Performed By: #### A JHONNY GIFFORD #### [address] No Panel InformationOrdered By: Margarito Valentine on 08-18-2023 Bedside Estimated GFR (eGFR) 26.776 [facility] Whole blood creatinine measu rementOrdered By: Margarito Valentine on 08-18-2023 Creatinine [Mass/Vol] 2.4 mg/dL High 0.6-1.3 [facility] Comment on above: ER/ESD physician is notified/shown all ISTAT results.Critical values may be confirmed by laboratory testing ifdeemed necessary by ER attending doctor. Result Comment: ER/E SD physician is notified/shown all ISTAT results. Critical values may be confirmed by laboratory testing if deemed necessary by ER attending doctor. Performed By: #### A JHONNY GIFFORD #### [place] [id number] [facility] ED Note-Physicianon 08-07-19 ED Note-Physician [id number]#1.00TIFF Normal [facility] ED Note-Physicianon 08-06-19 ED Note-Physician [id number]#1.00TIFF Normal [facility] ED Note-Physician [id number]#1.00TIFF Normal [facility] ED Note-Physician [id number]#1.00TIFF Normal [facility] Lab Reportson 08-06-2023 Lab Reports [id number]#1.00TIFF Normal [facility] Lab Reports [id number]#1.00TIFF Normal [facility] Physician Orderon 07-04-2023 Physician Order [id number]#1.00TIFF Normal [facility] Patient Educationon 06-30-19 Patient Education Urology Acute [...] these instructions at home: Medicines ? Take igzn-ive-fnwnbuz and prescription medicines only as told by [...] provider. Document Revised: 01/31/2021 Document Reviewed: 01/31/2021 [employer] Patient Education ? 2022 [employer] [facility] Urology Office/Clinic Noteon 06-30-2023 Urology Office/Clinic Note Chief Complaint f/u to Joshua [facility] Staff F/u to Joshua done 06/10/23. Dx: [...] [facility] [address], [place] [phone] Additional Instructions: 1 day for catheter removal [...] Use:. Cigarettes, (more content not included)... Normal [facility] Comment on above: Result Comment: Elec tronically Signed By: Katia JACOBS MD\.br\Date and Time Signed: 06/30/23 14:32 EST\.br\Electronically Co-Signed By: Apple Escoto\.br\Date and Time Co-Signed: 06/30/23 14:30 EST UroVysion Fish and Urine Cyt o ([facility]4 Labs)on 06-26-2023 UVF[facility] UC Revision Information Invalid Interpretation Code [facility] Comment on above: Result Comment: Brayan ection Reason -[ Fredi Stephen, 06/26/23 - 10:32 ] Corrected report issued to update PMS/PWS. The diagnosis remains unchanged. Correction Notes - Performed By: #### 1 [id number] ####[facility] [id number] [place] [address] Ambulatory Visit Summaryon 0 06-16-2023 Ambulatory Visit Summary ALEX ANDERSON :1945 Visit Date:06/16/2023 Ambulatory Visit Instructions Your Diagnosis BPH with urinary obstruction Your Care Team Attending Physician - Katia JACOBS MD Primary Care Physician - IDANIA CASILLAS, STANLEY Rich This Is Your Medications List acetaminophen-hydrocodone (Eagle 325 mg-7.5 mg oral tablet) albuterol (Albuterol [...] Katia JACOBS MD Where: [facility] Normal [facility] Consent for Procedure/Surger yon 06-10-2023 Consent for Procedure/Surgery [id number]#1.00TIFF Normal [facility] Consent for Treatmenton 05-26 Consent for Treatment [id number]#1.00TIFF Normal [facility] IntraOperative Documentson 0 06-10-2023 IntraOperative Documents [id number]#1.00TIFF [facility] Main OR Intraoperative Recor don 06-10-2023 Main OR Intraoperative Record IntraOp Document Type FTURO Summary Primary Physician: Katia JACOBS MD Finalized Date/Time: 06/10/23 15:18:46 Pt. Name: ANDERSONALEX/Sex: 1945 Male Med Rec #: [id number] Physician: Katia JACOBS MD Financial #: [id number] Pt. Type: O Room/Bed: / Admit/Disch: 06/10/23 [...] Kathleen Lai Role Performed Surgeon - Primary Field Kiln Burner - Primary Scrub - Primary Time In 06/10/23 14:32:00 06/10/23 14:32:00 06/10/23 14:32:00 Time Out 06/10/23 15:13:00 06/10/23 15:13:00 06/10/23 15:13:00 Procedure CYSTOSCOPY LOCAL CYSTOSCOPY LOCAL CYSTOSCOPY LOCAL REZUM(.) REZUM(.) REZUM(.) Daisy piña trim machine adjuster in room orienting Last Modified By: Clifford [...] WOLFGANG Horton RN, Ruthann 06/10/23 15:18 Normal [facility] Main OR Preoperative Recordo n 06-10-2023 Main OR Preoperative Record Holding Area Document Type FTURO Summary Primary Physician: Katia JACOBS MD Finalized Date/Time: 06/10/23 14:49:26 Pt. Name: ALEX ANDERSON/Sex: 1945 Male Med Rec #: [id number] Physician: Katia JACOBS MD Financial #: [id number] Pt. Type: O Room/Bed: / Admit/Disch: 06/10/23 [...] GLASSES; BILATERAL Limitations: UP AD JOSIAH. PT [place] [facility] [place] Comment: CATARACT LENS IMPLANTS Complaints [...] WOLFGANG Horton RN, Ruthann 06/10/23 14:49 Normal [facility] Operative Reporton Operative Report Patient: MELISSA ANDERSON [...] in satisfactory condition, Discharge instructions are provided. [facility] Comment on above: Result [...] with antibiotic coverage, Follow up arranged. Normal [facility] Comment on above: Result Comment: Elec tronically Signed By: ARLENE CASILLAS, Katia Delgado\Date and Time Signed: 06/10/23 15:20 EST UroVysion Fish and Urine Cyt o ([facility]4 Labs)on 06-10-2023 [facility] Method of Extraction Catheterized Normal [facility] Comment on above: Performed By: #### 1 [id number] ####[facility] [id number] [place] [address] [facility] Number of Jars 1 Invalid Interpretation Code [facility] Comment on above: Performed By: #### 1 [id number] ####[facility] [id number] [place] [address] [facility] Specimen Urine Normal [facility] Comment on above: Performed By: #### 1 [id number] ####[facility] [id number] [place] [address] [facility] Type of Service Technical Only Normal [facility] Comment on above: Performed By: #### 1 [id number] ####[facility] [id number] [facility] [place] [address] Alanine aminotransferase [En zymatic activity/volume] in Serum or PlasmaOrdered By: Celia Griffin on 04-08-2023 ALT [Catalytic activity/Vol] 17 U/L 7-52 [facility] Albumin [Mass/volume] in Ser um or Plasma by Bromocresol green (BCG) dye binding methoOrdered By: Celia Griffin on 04-08-2023 Albumin BCG dye [Mass/Vol] 4.2 g/dL 3.5-5.7 [facility] Alkaline phosphatase [Enzyma tic activity/volume] in Serum or PlasmaOrdered By: Celia Griffin on 04-08-2023 ALP [Catalytic activity/Vol] 72 U/L 34-104 [facility] Aspartate aminotransferase [ Enzymatic activity/volume] in Serum or PlasmaOrdered By: Celia Griffin on 04-08-2023 AST [Catalytic activity/Vol] 16 U/L 13-39 [facility] Automated erythrocytes count in urine sediment (number/area)Ordered By: Celia Griffin on 04-08-2023 RBC Auto (Urine sed) [#/Area] 3-4 [HPF] 0-4 [facility] Automated leukocytes count i n urine sediment (number/area)Ordered By: Celia Griffin on 04-08-2023 WBC Auto (Urine sed) [#/Area] 50-100 [HPF] 0-4 [facility] Bilirubin Test strip Ql (U)O rdered By: Celia Griffin on 04-08-2023 Bilirubin Ql (U) Negative Negative [facility] Bilirubin.total [Mass/volume ] in Serum or PlasmaOrdered By: Celia Griffin on 04-08-2023 Bilirubin [Mass/Vol] 0.5 mg/dL 0.3-1.0 [facility] Calcium [Mass/volume] in Ser um or PlasmaOrdered By: Celia Griffin on 04-08-2023 Calcium [Mass/Vol] 9.3 mg/dL 8.6-10.3 [facility] Carbon dioxide, total [Moles /volume] in Serum or PlasmaOrdered By: Celia Griffin on 04-08-2023 CO2 [Moles/Vol] 31.6 mmol/L 21.0-31.0 [facility] Chloride [Moles/volume] in S marium or PlasmaOrdered By: Celia Griffin on 04-08-2023 Chloride [Moles/Vol] 107 mmol/L 98-107 [facility] Cholesterol [Mass/volume] in Serum or PlasmaOrdered By: Teo Al on 04-08-2023 Cholesterol [Mass/Vol] 107 mg/dL 140-200 [facility] Comment on above: Chol less than 200 m g/dl low riskChol 201-239 mg/dl borderline riskChol 240 mg/dl and greater high risk Cholesterol in LDL Calc [Mas s/Vol]Ordered By: Teo Al on 04-08-2023 Cholesterol in LDL [Mass/Vol] 47 mg/dL 0-100 [facility] Comment on above: LDL ATP III CLASSIFI CATIONLDL less than 100 mg/dL OptimalLDL 100-129 mg/dL Near or above optimalLDL 130-159 mg/dL Borderline highLDL 160-189 mg/dL HighLDL greater than 189 mg/dL Very high Cholesterol in VLDL Calc [Ma ss/Vol]Ordered By: Teo Al on 04-08-2023 Cholesterol in VLDL [Mass/Vol] 26 mg/dL [facility] Color Auto (U)Ordered By: Jonh Griffin on 04-08-2023 Color (U) Yellow Yellow [facility] Creatinine [Mass/volume] in Serum or PlasmaOrdered By: Celia Griffin on 04-08-2023 Creatinine [Mass/Vol] 1.41 mg/dL 0.70-1.30 [facility] Creatinine [Mass/volume] in UrineOrdered By: Celia Griffin on 04-08-2023 Creatinine (U) [Mass/Vol] 90.0 mg/dL 14.0-26.0 [facility] Erythrocyte distribution wid th Auto (RBC) [Ratio]Ordered By: Celia Griffin on 04-08-2023 Erythrocyte distribution width (RBC) [Ratio] 15.7 % 12.0-14.8 [facility] Ferritin [Mass/volume] in Se rum or PlasmaOrdered By: Celia Griffin on 04-08-2023 Ferritin [Mass/Vol] 34.1 ng/mL 23.9-336.2 [facility] Folate [Mass/volume] in Seru m or PlasmaOrdered By: Celia Griffin on 04-08-2023 Folate [Mass/Vol] 34.0 ng/mL >5.9 [facility] Comment on above: Folate reference ran ge: >5.9 ng/mlThe WHO technical consultation on folate and vitamin [id number] has determined that folate concentrations lessthan 4 ng/ml are considered deficient. Globulin Calc (S) [Mass/Vol] Ordered By: Celia Griffin on 04-08-2023 Globulin (S) [Mass/Vol] 2.8 g/dL [facility] Glucose [Mass/volume] in Ser um or PlasmaOrdered By: Celia Griffin on 04-08-2023 Glucose [Mass/Vol] 107 mg/dL 70-100 [facility] Comment on above: ADA recommended refe rence rangeRandom Glucose Reference Range is dependent on time and content of last meal. Glucose of more than 200 mg/dL in a nonstressed, ambulatory subject supports the diagnosis of Diabetes Mellitus. Hematocrit Auto (Bld) [Volum e fraction]Ordered By: Celia Griffin on 04-08-2023 Hematocrit (Bld) [Volume fraction] 43.8 % 38.8-50.0 [facility] Hemoglobin [Mass/volume] in BloodOrdered By: Celia Griffin on 04-08-2023 Hemoglobin (Bld) [Mass/Vol] 14.3 g/dL 13.0-17.0 [facility] Iron [Mass/volume] in Serum or PlasmaOrdered By: Celia Griffin on 04-08-2023 Iron [Mass/Vol] 53 ug/dL 50-212 [facility] Iron binding capacity [Mass/ volume] in Serum or PlasmaOrdered By: Celia Griffin on 04-08-2023 Iron binding capacity [Mass/Vol] 370 ug/dL 255-450 [facility] Iron saturation [Mass Fracti on] in Serum or PlasmaOrdered By: Celia Griffin on 04-08-2023 Iron saturation [Mass fraction] 14.3 % 20-50 [facility] Ketones Auto test strip (U) [Mass/Vol]Ordered By: Celia Griffin on 04-08-2023 Ketones (U) [Mass/Vol] Negative Negative [facility] Laboratory - UrinalysisOrder ed By: Celia Griffin on 04-08-2023 Hyaline casts LM Ql (Urine sed) 9-19 [LPF] 0-8 [facility] Leukocytes [#/volume] correc phil for nucleated erythrocytes in Blood by Automated counOrdered By: Celia Griffin on 04-08-2023 WBC corrected for nucl RBC Auto (Bld) [#/Vol] 8.4 10*3/uL 4.1-10.5 [facility] MCH Auto (RBC) [Entitic mass ]Ordered By: Celia Griffin on 04-08-2023 MCH (RBC) [Entitic mass] 27.3 pg 27.5-35.2 [facility] MCHC Auto (RBC) [Mass/Vol]Or dered By: Celia Griffin on 04-08-2023 MCHC (RBC) [Mass/Vol] 32.6 g/dL 32.5-35.6 [facility] MCV Auto (RBC) [Entitic vol] Ordered By: Celia Griffin on 04-08-2023 MCV (RBC) [Entitic vol] 83.8 fL 83.5-101 [facility] Magnesium [Mass/volume] in S marium or PlasmaOrdered By: Celia Griffin on 04-08-2023 Magnesium [Mass/Vol] 2.2 mg/dL 1.9-2.7 [facility] Nitrite Test strip Ql (U)Ord ered By: Celia Griffin on 04-08-2023 Nitrite Ql (U) Positive Negative [facility] No Panel InformationOrdered By: Celia Griffin on 04-08-2023 Estimated GFR (CKD-EPI) 50.692 mL/Min [facility] Creatinine Clearance (Chem N/A [facility] Parathyrin.intact [Mass/volu me] in Serum or PlasmaOrdered By: Celia Griffin on 04-08-2023 Parathyrin.intact [Mass/Vol] 76.6 pg/mL 12-88 [facility] Phosphate [Mass/volume] in S marium or PlasmaOrdered By: Celia Griffin on 04-08-2023 Phosphate [Mass/Vol] 2.8 mg/dL 2.5-4.5 [facility] Platelet mean volume Auto (B ld) [Entitic vol]Ordered By: Celia Griffin on 04-08-2023 Platelet mean volume (Bld) [Entitic vol] 8.6 fL 6.6-10.1 [facility] Platelets Auto (Bld) [#/Vol] Ordered By: Celia Griffin on 04-08-2023 Platelets (Bld) [#/Vol] 201 10*3/uL 150-450 [facility] Potassium [Moles/volume] in Serum or PlasmaOrdered By: Celia Griffin on 04-08-2023 Potassium [Moles/Vol] 4.5 mmol/L 3.5-5.1 [facility] Protein Auto test strip (U) [Mass/Vol]Ordered By: Celia Griffin on 04-08-2023 Protein (U) [Mass/Vol] Trace mg/dL Negative [facility] Protein [Mass/volume] in Ser um or PlasmaOrdered By: Celia Griffin on 04-08-2023 Protein [Mass/Vol] 7.0 g/dL 6.4-8.9 [facility] Protein [Mass/volume] in Uri neOrdered By: Celia Griffin on 04-08-2023 Protein (U) [Mass/Vol] 30 mg/dL 0-9 [facility] RBC Auto (Bld) [#/Vol]Ordere d By: Celia Griffin on 04-08-2023 RBC (Bld) [#/Vol] 5.22 10*6/uL 3.90-5.60 [facility] Serum or plasma albumin/glob ulin mass ratioOrdered By: Celia Griffin on 04-08-2023 Albumin/Globulin [Mass ratio] 1.5 {ratio} [facility] Serum or plasma anion gap de terminationOrdered By: Celia Griffin on 04-08-2023 Anion gap [Moles/Vol] 8.9 mmol/L 6.0-15.0 [facility] Serum or plasma high density lipoprotein (HDL) cholesterol measurementOrdered By: Teo Al on 04-08-2023 Cholesterol in HDL [Mass/Vol] 34 mg/dL 23-92 [facility] Comment on above: HDL CHOL ATP-III CLA SSIFICATION Cardiovascular RiskHDL > or equal to 60 mg/dL LOWHDL < 40 mg/dL HIGH Serum or plasma total choles terol/high density lipoprotein (HDL) cholesterol mass ratOrdered By: Teo Al on 04-08-2023 Cholesterol.total/Sonya sterol in HDL [Mass ratio] 3.1 {ratio} <5.0 [facility] Sodium [Moles/volume] in Ser um or PlasmaOrdered By: Celia Griffin on 04-08-2023 Sodium [Moles/Vol] 143 mmol/L 136-145 [facility] Specific gravity Auto test s trip (U) [Rel density]Ordered By: Celia Griffin on 04-08-2023 Specific gravity (U) [Rel density] 1.017 1.001-1.03 0 [facility] Squamous epithelial cells de tection in urine sediment by light microscopyOrdered By: Celia Griffin on 04-08-2023 Epithelial cells.squamous LM Ql (Urine sed) 0-1 [HPF] 0-2 [facility] Transferrin [Mass/volume] in Serum or PlasmaOrdered By: Celia Griffin on 04-08-2023 Transferrin [Mass/Vol] 264 mg/dL 203-362 [facility] Triglyceride [Mass/volume] i n Serum or PlasmaOrdered By: Teo Al on 04-08-2023 Triglyceride [Mass/Vol] 131 mg/dL 0-149 [facility] Comment on above: TRIG ATP III CLASSIF ICATIONTRIG less than 150 mg/dL NormalTRIG 150-199 mg/dL Borderline highTRIG 200-500 mg/dL High TRIG greater than 500 mg/dL Very highStandard traceable to the Center for Disease Conrtrol and Prevention (CDC) test method. Urate [Mass/volume] in Serum or PlasmaOrdered By: Celia Griffin on 04-08-2023 Urate [Mass/Vol] 6.0 mg/dL 4.4-7.6 [facility] Urea nitrogen [Mass/volume] in Serum or PlasmaOrdered By: Celia Griffin on 04-08-2023 Urea nitrogen [Mass/Vol] 27 mg/dL 7-25 [facility] Urine bacteria detection by automated methodOrdered By: Celia Griffin on 04-08-2023 Bacteria Auto Ql (U) 4+ None Seen [facility] Urine clarity by refractomet ry automatedOrdered By: Celia Griffin on 04-08-2023 Clarity Refractometry automated (U) Cloudy Clear [facility] Urine glucose measurement by automated test strip (mass/volume)Ordered By: Celai Griffin on 04-08-2023 Glucose Auto test strip (U) [Mass/Vol] Normal mg/dL Normal [facility] Urine hemoglobin detection b y automated test stripOrdered By: Celia Griffin on 04-08-2023 Hemoglobin Auto test strip Ql (U) 1+ Negative [facility] Urine leukocyte esterase det ection by automated test stripOrdered By: Celia Griffin on 04-08-2023 Leukocyte esterase Auto test strip Ql (U) 4+ Negative [facility] Urine protein/creatinine rat ioOrdered By: Celia Griffin on 04-08-2023 Protein/Creatinine (U) [Ratio] 333 mg/g{Cre} 0-200 [facility] Urobilinogen Auto test strip (U) [Mass/Vol]Ordered By: Celia Griffin on 04-08-2023 Urobilinogen (U) [Mass/Vol] Normal mg/dL Normal [facility] Vitamin B12 ser/plasOrdered By: Celia Griffin on 04-08-2023 Cobalamin (Vitamin B12) [Mass/Vol] 301 pg/mL 180-914 [facility] Vitamin D+Metabolites [Mass/ volume] in Serum or PlasmaOrdered By: Ceila Griffin on 04-08-2023 Vitamin D+Metabolites [Mass/Vol] 37.5 ng/mL 30-100 [facility] Comment on above: VITAMIN D STATUS 25( [place])VITAMIN D RANGE (ng/mL) Deficient <20 Insufficient 20 to <30Sufficient 30 to 100Reference: Sixto MF,Federico NC, Palomo LESLIE, et al. Evaluation,treatment, and prevention of vitamin D deficiency; an Endocrine Society clinical practice guideline. JCEM. 2010; 96(7):1911-30. pH Auto test strip (U)Ordere d By: Celia Griffin on 04-08-2023 pH (U) 7.0 [pH] 5.0-9.0 [facility] Office Visit (Cardiology)on 01-22-2023 Follow-up visit Diagnoses/Problems [...] Lipid Panel; Status:Active - Retrospective Authorization; Requested for:[id number]; Overweight with body mass index (BMI) of [...] we can help. You may also call 8-076-DIMLNOW for free resources and assistance.; Status:Complete - [...] negative for complaint. Vitals Vital Signs Recorded: [id number] 09:57AM Heart Rate72, L Radial Cwcjyppl791, LUE, Sitting Rxptbaajz95, LUE, Sitting Height6 ft 2 in Gfahue559 lb BMI Jhyxselzyl43.35 kg/m2 BSA Calculat (more content not included)... Normal [facility] Tobacco Screening.on 023 Fall risk assessment a) No falls within the last year [facility] [employer] DO Work Phone: Tobacco use status CPHS a) Yes M [facility] [employer] DO Work Phone: Tobacco Screening. Yes -[facility] [employer] DO Work Phone: CULTURE URINEon 09-18-2022 CULTURE URINE Isolate 1 Pseudomonas aeruginosa >100,000 cfu/mL of ORGANISM 1 Pseudomonas aeruginosa ANTIBIOTIC M.I.C RX STATUS Piperacillin/Tazobactam <=4 S F Ceftazidime <=1 S F Imipenem 2 S F Amikacin <=2 S F Gentamicin 2 S F Tobramycin <=1 S F Ciprofloxacin <=0.25 S F Levofloxacin <=0.12 S F Normal [facility] Comment on above: Performed By: #### U RTPCR #### [facility] [address] [place] [address] Dr. Karen Pierce CALCULI, URINARYon 3 2,8 Dihydroxyadenine Normal [facility] Comment on above: Performed By: #### U A #### [facility] [address] [place] [address] Dr. Karen Pierce Ammonium Acid Urate Normal [facility] Comment on above: Performed By: #### U A #### [facility] [address] [place] [address] Dr. Karen Pierce Bilirubin Ql (U) Normal [facility] Comment on above: Performed By: #### U A #### [facility] [address] [place] [address] Dr. Karen Pierce Ca Oxalate Dihydrate Normal [facility] Comment on above: Performed By: #### U A #### [facility] [address] [place] [address] Dr. Karen Pierce CaHPO4 (Brushite) [facility] Comment on above: Performed By: #### U A #### [facility] [address] [address] [address] Karen Pierce Calcium Bilirubinate Normal [facility] Comment on above: Performed By: #### U A #### [facility] [address] [address] [address] Karen Pierce Calcium Carbonate [facility] Comment on above: Performed By: #### U A #### [facility] [address] [address] [address] Karen Pierce Calcium Oxalate Monohydrate 100 % [facility] Comment on above: Performed By: #### U A #### [facility] [address] [address] [address] Karen Pierce Calcium Palmitate [facility] Comment on above: Performed By: #### U A #### [facility] [address] [address] [address] Karen Pierce Calcium Phosphate [facility] Comment on above: Performed By: #### U A #### [facility] [address] [address] [address] Karen Pierce Calcium Stearate [facility] Comment on above: Performed By: #### U A #### [facility] [address] [place] [address] Dr. Karen Pierce Carbonate Apatite [facility] Comment on above: Performed By: #### U A #### [facility] [address] [address] [address] Karen Pierce Cellular Material [facility] Comment on above: Performed By: #### U A #### [facility] [address] [address] [address] Karen Pierce Cholesterol [facility] Comment on above: Performed By: #### U A #### [facility] [address] [address] [address] Karen Pierce Color (U) Brown [facility] Comment on above: Performed By: #### U A #### [facility] [address] [address] [address] Karen Pierce Comment Normal [facility] Comment on above: Performed By: #### U A #### [facility] [address] [place] [address] Dr. Karen Pierce Comment: Comment Normal [facility] Comment on above: Result Comment: Hyacinth rhodes questions regarding Calculi Analysis [facility] at: [phone]. Performed By: #### U A #### [facility] [address] [address] [address] Karen Pierce Composition Comment [facility] Comment on above: Result Comment: Perc entage (Represents the % composition) Performed By: #### U A #### [facility] [address] [place] [address] Dr. Karen Pierce Cystine Normal [facility] Comment on above: Performed By: #### U A #### [facility] [address] [place] [address] Dr. Karen Pierce Disclaimer: Comment [facility] Comment on above: Result Comment: This test was developed and its performance characteristics determined by [facility]. It has not been cleared or approved by the Food and Drug Administration. Performed By: #### U A #### [facility] [address] [address] [address] Karen Pierce Dried Blood Normal [facility] Comment on above: Performed By: #### U A #### [facility] [address] [place] [address] Dr. Karen Pierce Drug or Metabolite Normal [facility] Comment on above: Performed By: #### U A #### [facility] [address] [address] [address] Karen Pierce Hydroxyapatite [facility] Comment on above: Performed By: #### U A #### [facility] [address] [place] [address] Dr. Karen Pierce Mg NH4 PO4 (Struvite) Normal [facility] Comment on above: Performed By: #### U A #### [facility] [address] [address] [address] Karen Pierce MgHPO4 ([facility]) [facility] Comment on above: Performed By: #### U A #### [facility] [address] [address] [address] Karen Pierce Other component(s) [facility] Comment on above: Performed By: #### U A #### [facility] [address] [address] [address] Karen Pierce PDF . Normal [facility] Comment on above: Performed By: #### U A #### [facility] [address] [address] [address] Karen Pierce Photo Comment [facility] Comment on above: Result Comment: Phot ograph will follow under a separate cover Performed By: #### U A #### [facility] [address] [place] [address] Dr. Karen Pierce Please note: Comment [facility] Comment on above: Result Comment: Calc shirley report will follow via computer, mail or leaf blender delivery. Performed By: #### U A #### [facility] [address] [place] [address] Dr. Karen Pierce Size 5x5 [facility] Comment on above: Result Comment: Mult iple pieces received. Dimensions of the largest piece reported. Performed By: #### U A #### [facility] [address] [place] [address] Dr. Karen Pierce Sodium Acid Urate [facility] Comment on above: Performed By: #### U A #### [facility] [address] [place] [address] Dr. Karen Pierce Source Comment [facility] Comment on above: Result Comment: Urin evelin Bladder Performed By: #### U A #### [facility] [address] [place] [address] Dr. Karen Pierce Triamterene [facility] Comment on above: Performed By: #### U A #### [facility] [address] [place] [address] Dr. Karen Pierce Uric Acid Normal [facility] Comment on above: Performed By: #### U A #### [facility] [address] [place] [address] Dr. Karen Pierce Uric Acid Dihydrate Normal [facility] Comment on above: Performed By: #### U A #### [facility] [address] [place] [address] Dr. Karen Pierce Weight 158 mg Normal [facility] Comment on above: Performed By: #### U A #### [facility] [address] [address] [address] Karen Pierce Xanthine [facility] Comment on above: Performed By: #### U A #### [facility] [address] [place] [address] Dr. Karen Pierce ER URINE PROFILEon 3 Bilirubin Ql (U) Negative Normal NEGATIVE [facility] Comment on above: Performed By: #### U MICRO, ERUR #### [facility] [address] [place] [address] Dr. Karen Pierce Clarity (U) CLEAR Normal CLEAR [facility] Comment on above: Performed By: #### U MICRO, ERUR #### [facility] [address] [place] [address] Dr. Karen Pierce Color (U) YELLOW Normal YELLOW [facility] Comment on above: Performed By: #### U MICRO, ERUR #### [facility] [address] [place] [address] Dr. Karen Pierce ERUAHD A micrscopic examina tion will be performed if indicated. Normal [facility] Comment on above: Performed By: #### U MICRO, ERUR #### [facility] [address] [address] [address] Karen Pierce Glucose Ql (U) Negative Normal NEGATIVE [facility] Comment on above: Performed By: #### U MICRO, ERUR #### [facility] [address] [place] [address] Dr. Karen Pierce Hemoglobin Ql (U) LARGE Abnormal NEGATIVE [facility] Comment on above: Performed By: #### U MICRO, ERUR #### [facility] [address] [place] [address] Dr. Karen Pierce Ketones Ql (U) Negative Normal NEGATIVE [facility] Comment on above: Performed By: #### U MICRO, ERUR #### [facility] [address] [place] [address] Dr. Karen Pierce LEUKOCYTES LARGE Abnormal NEGATIVE [facility] Comment on above: Performed By: #### U MICRO, ERUR #### [facility] [address] [place] [address] Dr. Karen Pierce Nitrite Ql (U) Positive Abnormal NEGATIVE [facility] Comment on above: Performed By: #### U MICRO, ERUR #### [facility] [address] [place] [address] Dr. Karen Pierce pH (U) 5.5 [pH] Normal 5-9 [facility] Comment on above: Performed By: #### U MICRO, ERUR #### [facility] [address] [place] [address] Dr. Karen Pierce Protein (U) [Mass/Vol] 100 mg/dL Abnormal NEGAT RAJI/ TRACE [facility] Comment on above: Performed By: #### U MICRO, ERUR #### [facility] [address] [place] [address] Dr. Karen Pierce SPEC GRAVITY 1.020 Normal 1.005-<=1. 025 [facility] Comment on above: Performed By: #### U MICRO, ERUR #### [facility] [address] [place] [address] Dr. Karen Pierce UR MICRO IND INDICATED Normal [facility] Comment on above: Performed By: #### U MICRO, ERUR #### [facility] [address] [place] [address] Dr. Karen Pierce Urobilinogen Qn (U) 1.0 {Tonio'U}/dL Normal 0.2 - 1. 0 [facility] Comment on above: Performed By: #### U MICRO, ERUR #### [facility] [address] [place] [address] Dr. Karen Pierce URINE MICROSCOPIC ONLYon BACTERIA SMALL Abnormal NONE SEEN [facility] Comment on above: Performed By: #### U MICRO, ERUR #### [facility] [address] [place] [address] Dr. Karen Pierce Bacteria identified Cx Nom (U) INDICATED Normal [facility] Comment on above: Performed By: #### U MICRO, ERUR #### [facility] [address] [place] [address] Dr. Karen Pierce CAST NONE SEEN Normal NONE SEEN [facility] Comment on above: Performed By: #### U MICRO, ERUR #### [facility] [address] [place] [address] Dr. Karen Pierce Crystals LM Nom (Urine sed) NONE SEEN Normal NONE SEEN [facility] Comment on above: Performed By: #### U MICRO, ERUR #### [facility] [address] [place] [address] Dr. Karen Pierce Epithelial cells LM Ql (Urine sed) NONE SEEN Normal NONE SEEN /RARE [facility] Comment on above: Performed By: #### U MICRO, ERUR #### [facility] [address] [place] [address] Dr. Karen Pierce MUCOUS NONE SEEN Normal NONE SEEN [facility] Comment on above: Performed By: #### U MICRO, ERUR #### [facility] [address] [place] [address] Dr. Karen Pierce RBC (U) [#/Vol] /uL Abnormal 0-2 [facility] Comment on above: Performed By: #### U MICRO, ERUR #### [facility] [address] [place] [address] Dr. Karen Pierce WBC 50-75 Abnormal NONE SEEN [facility] Comment on above: Performed By: #### U MICRO, ERUR #### [facility] [address] [place] [address] Dr. Karen Pierce PTH INTACTon 09-05-2022 PTH, Intact 38 pg/mL Normal 15-65 [facility] Comment on above: Performed By: #### P THINT #### [facility] [address] [place] [address] Dr. Karen Pierce FERRITINon 09-04-2022 Ferritin [Mass/Vol] 49.0 ng/mL Normal 26.0-388.0 [facility] Comment on above: Performed By: #### U RTPCR #### [facility] [address] [place] [address] Dr. Karen Pierce IRON AND TIBCon 09-04-2022 % SATURATION 10.3 % Normal [facility] Comment on above: Performed By: #### U RTPCR #### [facility] [address] [place] [address] Dr. Karen Pierce Iron [Mass/Vol] 33.0 ug/dL Critically low 65.0-175.0 [facility] Comment on above: Performed By: #### U RTPCR #### [facility] [address] [place] [address] Dr. Karen Pierce TIBC DIRECT 319.0 ug/dL Normal 250.0-450. 0 [facility] Comment on above: Performed By: #### U RTPCR #### [facility] [address] [place] [address] Dr. Karen Pierce UA RANDOMon 09-04-2022 Bilirubin Ql (U) Negative Normal NEGATIVE [facility] Comment on above: Performed By: #### U A #### [facility] [address] [place] [address] Dr. Karen Pierce Clarity (U) CLEAR Normal CLEAR [facility] Comment on above: Performed By: #### U A #### [facility] [address] [place] [address] Dr. Karen Pierce Color (U) LT. YELLOW Normal YELLOW [facility] Comment on above: Performed By: #### U A #### [facility] [address] [place] [address] Dr. Karen Pierce Glucose Ql (U) Negative Normal NEGATIVE [facility] Comment on above: Performed By: #### U A #### [facility] [address] [place] [address] Dr. Karen Pierce Hemoglobin Ql (U) MODERATE Abnormal NEGATIVE [facility] Comment on above: Performed By: #### U A #### [facility] [address] [place] [address] Dr. Karen Pierce Ketones Ql (U) Negative Normal NEGATIVE [facility] Comment on above: Performed By: #### U A #### [facility] [address] [place] [address] Dr. Karen Pierce LEUKOCYTES LARGE Abnormal NEGATIVE [facility] Comment on above: Performed By: #### U A #### [facility] [address] [place] [address] Dr. Karen Pierce Nitrite Ql (U) Positive Abnormal NEGATIVE [facility] Comment on above: Performed By: #### U A #### [facility] [address] [place] [address] Dr. Karen Pierce pH (U) 6.5 [pH] Normal 5-9 [facility] Comment on above: Performed By: #### U A #### [facility] [address] [place] [address] Dr. Karen Pierce SPEC GRAVITY 1.015 Normal 1.005-<=1. 025 [facility] Comment on above: Performed By: #### U A #### [facility] [address] [place] [address] Dr. Karen Pierce UA PROTEIN 30 mg/dl Abnormal NEGATIVE/ TRACE [facility] Comment on above: Performed By: #### U A #### [facility] [address] [place] [address] Dr. Karen Pierce Urobilinogen Qn (U) 0.2 {Tonio'U}/dL Normal 0.2 - 1. 0 [facility] Comment on above: Performed By: #### U A #### [facility] [address] [place] [address] Dr. Karen Pierce URINE T PROTEIN CREAT RATIOo n 09-04-2022 Protein (U) [Mass/Vol] 65.2 mg/dL Critically high <=12.0 [facility] Comment on above: Performed By: #### U RTPCR #### [facility] [address] [place] [address] Dr. Karen Pierce UR PROT CREAT RAT 0.76 Normal [facility] Comment on above: Performed By: #### U RTPCR #### [facility] [address] [place] [address] Dr. Karen Pierce URINE CREAT 85.95 mg/dL Normal 20.00-300. 00 [facility] Comment on above: Performed By: #### U RTPCR #### [facility] [address] [place] [address] Dr. Karen Pierce VIT B12 AND FOLATEon 023 Cobalamin (Vitamin B12) [Mass/Vol] 279.0 pg/mL Normal 193.0-986. 0 [facility] Comment on above: Performed By: #### U RTPCR #### [facility] [address] [place] [address] Dr. Karen Pierce FOLATE 17.80 ng/mL Normal 8.60-58.90 [facility] Comment on above: Performed By: #### U RTPCR #### [facility] [address] [place] [address] Dr. Karen Pierce VITAMIN D 25 OHon 09-04-2022 VIT D 25-OH 29.9 ng/mL Normal [facility] Comment on above: Performed By: #### U RTPCR #### [facility] [address] [place] [address] Dr. Karen Pierce VIT D RANGES SEE BELOW Normal [facility] Comment on above: Result Comment: <20 ng/mL Vit D deficient 20 - <30 ng/mL Vit D insufficient 30 - 100 ng/mL Vit D sufficient >100 ng/mL Potential Toxicity Performed By: #### U RTPCR #### [facility] [address] [place] [address] Dr. Karen Pierce CBC AUTO DIFFon 09-02-2022 BASO # 0.1 103/ul Normal 0.0-0.1 [facility] Comment on above: Performed By: #### C BC #### [facility] [address] [place] [address] Dr. Karen Pierce Basophils/100 WBC (Bld) 0.7 % Normal 0.2-2.0 [facility] Comment on above: Performed By: #### C BC #### [facility] [address] [place] [address] Dr. Karen Pierce EO # 0.2 103/ul Normal 0.0-0.7 [facility] Comment on above: Performed By: #### C BC #### [facility] [address] [place] [address] Dr. Karen Pierce Eosinophils/100 WBC (Bld) 2.6 % Normal 0.9-7.0 [facility] Comment on above: Performed By: #### C BC #### [facility] [address] [place] [address] Dr. Karen Pierce Erythrocyte distribution width (RBC) [Ratio] 13.8 % Normal 11.0-15.0 [facility] Comment on above: Performed By: #### C BC #### [facility] [address] [place] [address] Dr. Karen Pierce Hematocrit (Bld) [Volume fraction] 38.9 % Critically low 42.0-54.0 [facility] Comment on above: Performed By: #### C BC #### [facility] [address] [place] [address] Dr. Karen Pierce Hemoglobin (Bld) [Mass/Vol] 12.3 g/dL Critically low 14.0-18.0 [facility] Comment on above: Performed By: #### C BC #### [facility] [address] [place] [address] Dr. Karen Pierce IG # 0.01 10e3/ul Normal 0.00-0.03 [facility] Comment on above: Performed By: #### C BC #### [facility] [address] [place] [address] Dr. Karen Pierce IG % 0.1 % Normal 0.0-0.5 [facility] Comment on above: Performed By: #### C BC #### [facility] [address] [place] [address] Dr. Karen Pierce LYMPH # 1.9 103/ul Normal 1.2-3.8 [facility] Comment on above: Performed By: #### C BC #### [facility] [address] [place] [address] Dr. Karen Pierce Lymphocytes/100 WBC (Bld) 27.0 % Normal 20.5-60.0 [facility] Comment on above: Performed By: #### C BC #### [facility] [address] [place] [address] Dr. Karen Pierce MANUAL DIFF REQ NO Normal [facility] Comment on above: Performed By: #### C BC #### [facility] [address] [place] [address] Dr. Karen Pierce MCH (RBC) [Entitic mass] 27.8 pg Normal 25.9-34.0 [facility] Comment on above: Performed By: #### C BC #### [facility] [address] [place] [address] Dr. Karen Pierce MCHC (RBC) [Mass/Vol] 31.6 g/dL Normal 29.9-35.2 [facility] Comment on above: Performed By: #### C BC #### [facility] [address] [place] [address] Dr. Karen Pierce MCV (RBC) [Entitic vol] 87.8 fL Normal 80.0-94.0 [facility] Comment on above: Performed By: #### C BC #### [facility] [address] [place] [address] Dr. Karen Pierce MONO # 0.6 103/ul Normal 0.3-0.8 [facility] Comment on above: Performed By: #### C BC #### [facility] [address] [place] [address] Dr. Karen Pierce Monocytes/100 WBC (Bld) 8.8 % Normal 1.7-12.0 [facility] Comment on above: Performed By: #### C BC #### [facility] [address] [place] [address] Dr. Karen Pierce NEUT # 4.4 103/ul Normal 1.4-6.5 [facility] Comment on above: Performed By: #### C BC #### [facility] [address] [address] [address] Karen Pierce Neutrophils/100 WBC (Bld) 60.8 % Normal 43.0-75.0 [facility] Comment on above: Performed By: #### C BC #### [facility] [address] [address] [address] Karen Pierce Platelet mean volume (Bld) [Entitic vol] 9.9 fL Normal 9.5-13.5 [facility] Comment on above: Performed By: #### C BC #### [facility] [address] [place] [address] Dr. Karen Pierce PLT 181 103/ul Normal 150-450 [facility] Comment on above: Performed By: #### C BC #### [facility] [address] [place] [address] Dr. Karen Pierce RBC 4.43 106/ul Critically low 4.70-6.10 [facility] Comment on above: Performed By: #### C BC #### [facility] [address] [place] [address] Dr. Karen Pierce WBC 7.2 103/ul Normal 4.0-11.0 [facility] Comment on above: Performed By: #### C BC #### [facility] [address] [place] [address] Dr. Karen Pierce MAGNESIUMon 09-02-2022 Magnesium [Mass/Vol] 2.2 mg/dL Normal 1.8-2.4 [facility] Comment on above: Performed By: #### U A #### [facility] [address] [place] [address] Dr. Karen Pierce PHOSPHORUSon 09-02-2022 Phosphate [Mass/Vol] 2.9 mg/dL Normal 2.6-4.7 [facility] Comment on above: Performed By: #### U A #### [facility] [address] [place] [address] Dr. Karen Pierce PROF 14(COMP METB)on 04-10-2 023 Albumin [Mass/Vol] 3.5 g/dL Normal 3.4-5.0 [facility] Comment on above: Performed By: #### P THINT #### [facility] [address] [place] [address] Dr. Karen Pierce Albumin/Globulin [Mass ratio] 1.0 {ratio} Normal [facility] Comment on above: Performed By: #### P THINT #### [facility] [address] [place] [address] Dr. Karen Pierce ALP [Catalytic activity/Vol] 86 U/L Normal 46-116 [facility] Comment on above: Performed By: #### P THINT #### [facility] [address] [place] [address] Dr. Karen Pierce ALT [Catalytic activity/Vol] 17 U/L Normal 16-63 [facility] Comment on above: Performed By: #### P THINT #### [facility] [address] [place] [address] Dr. Karen Pierce Anion gap [Moles/Vol] 13.0 mmol/L Normal [facility] Comment on above: Performed By: #### P THINT #### [facility] [address] [place] [address] Dr. Karen Pierce AST [Catalytic activity/Vol] 14 U/L Critically low 15-37 [facility] Comment on above: Performed By: #### P THINT #### [facility] [address] [place] [address] Dr. Karen Pierce Bilirubin [Mass/Vol] 0.3 mg/dL Normal 0.2-1.0 [facility] Comment on above: Performed By: #### P THINT #### [facility] [address] [place] [address] Dr. Karen Pierce CO2 [Moles/Vol] 27.6 mmol/L Normal 21.0-32.0 [facility] Comment on above: Performed By: #### P THINT #### [facility] [address] [place] [address] Dr. Karen Pierce Creatinine [Mass/Vol] 1.48 mg/dL Critically high 0.70-1.30 [facility] Comment on above: Performed By: #### P THINT #### [facility] [address] [address] [address] Karen Pierce EGFR-AF NIGERIAN 56 mL/min/1.73m2 Critically low >=60 [facility] Comment on above: Performed By: #### P THINT #### [facility] [address] [address] [address] Karen Pierce EGFR-NON AF NIGERIAN 46 mL/min/1.73m2 Critically low >=60 [facility] Comment on above: Performed By: #### P THINT #### [facility] [address] [address] [address] Karen Pierce Globulin (S) [Mass/Vol] 3.6 g/dL Normal [facility] Comment on above: Performed By: #### P THINT #### [facility] [address] [place] [address] Dr. Karen Pierce Glucose [Mass/Vol] 105 mg/dL Normal 74-106 [facility] Comment on above: Performed By: #### P THINT #### [facility] [address] [address] [address] Karen Pierce Protein [Mass/Vol] 7.1 g/dL Normal 6.4-8.2 [facility] Comment on above: Performed By: #### P THINT #### [facility] [address] [place] [address] Dr. Karen Pierce Sodium [Moles/Vol] 142 mmol/L Normal 136-145 [facility] Comment on above: Performed By: #### P THINT #### [facility] [address] [address] [address] Karen Pierce Urea nitrogen/Creatinine [Mass ratio] 16.2 mg/mg Normal [facility] Comment on above: Performed By: #### P THINT #### [facility] [address] [place] [address] Dr. Karen Pierce PROF CHEM 8 (BAS METB)on Anion gap [Moles/Vol] 11.1 mmol/L Normal Th [facility] Comment on above: Performed By: #### U A #### [facility] [address] [place] [address] Dr. Karen Pierce Calcium [Mass/Vol] 8.7 mg/dL Normal 8.5-10.1 [facility] Comment on above: Performed By: #### U A #### [facility] [address] [place] [address] Dr. Karen Pierce Performed By: #### P THINT #### [facility] [address] [place] [address] Dr. Karen Pierce Chloride [Moles/Vol] 106 mmol/L Normal 98-107 [facility] Comment on above: Performed By: #### U A #### [facility] [address] [place] [address] Dr. Karen Pierce Performed By: #### P THINT #### [facility] [address] [place] [address] Dr. Karen Pierce CO2 [Moles/Vol] 28.5 mmol/L Normal 21.0-32.0 [facility] Comment on above: Performed By: #### U A #### [facility] [address] [place] [address] Dr. Karen Pierce Creatinine [Mass/Vol] 1.44 mg/dL Critically high 0.70-1.30 [facility] Comment on above: Performed By: #### U A #### [facility] [address] [place] [address] Dr. Karen Pierce EGFR-AF NIGERIAN 58 mL/min/1.73m2 Critically low >=60 [facility] Comment on above: Performed By: #### U A #### [facility] [address] [place] [address] Dr. Karen Pierce EGFR-NON AF NIGERIAN 47 mL/min/1.73m2 Critically low >=60 [facility] Comment on above: Performed By: #### U A #### [facility] [address] [place] [address] Dr. Karen Pierce Glucose [Mass/Vol] 104 mg/dL Normal 74-106 [facility] Comment on above: Performed By: #### U A #### [facility] [address] [place] [address] Dr. Karen Pierce Potassium [Moles/Vol] 4.6 mmol/L Normal 3.5-5.1 [facility] Comment on above: Performed By: #### U A #### [facility] [address] [place] [address] Dr. Karen Pierce Performed By: #### P THINT #### [facility] [address] [place] [address] Dr. Karen Pierce Sodium [Moles/Vol] 141 mmol/L Normal 136-145 [facility] Comment on above: Performed By: #### U A #### [facility] [address] [place] [address] Dr. Karen Pierce Urea nitrogen [Mass/Vol] 24.0 mg/dL Critically high 7.0-18.0 [facility] Comment on above: Performed By: #### U A #### [facility] [address] [place] [address] Dr. Karen Pierce Performed By: #### P THINT #### [facility] [address] [place] [address] Dr. Karen Pierce Urea nitrogen/Creatinine [Mass ratio] 16.7 mg/mg Normal [facility] Comment on above: Performed By: #### U A #### [facility] [address] [place] [address] Dr. Karen Pierce PROTIMEon 09-02-2022 INR Coag (PPP) [Relative time] 1.01 {INR} Normal [facility] Comment on above: Performed By: #### P TT, PT #### [facility] [address] [place] [address] Dr. Karen Pierce INR GUIDELINES SEE BELOW Normal [facility] Comment on above: Result Comment: EMY RED INR: 2.0 - 3.0 CONDITIONS NOT LISTED BELOW 2.5 - 3.5 FOR PROSTHETIC HEART VALVE REPLACEMENT 2.5 - 3.5 RECURRENT THROMBOSIS Performed By: #### P TT, PT #### [facility] [address] [address] [address] Karen Pierce PT Coag (PPP) [Time] 10.7 s Normal 9.0-11.6 [facility] Comment on above: Performed By: #### P TT, PT #### [facility] [address] [address] [address] Karen Pierce PTTon 09-02-2022 aPTT Coag (Bld) [Time] 28.2 s Normal 22.3-36.2 [facility] Comment on above: Performed By: #### P TT, PT #### [facility] [address] [address] [address] Karen Pierce URIC ACID SERUMon 09-02-2022 Urate [Mass/Vol] 4.8 mg/dL Normal 3.5-7.2 [facility] Comment on above: Performed By: #### P THINT #### [facility] [address] [address] [address] Karen Pierce Creatinine (Bld) [Mass/Vol]O rdered By: Margarito Valentine on 08-16-2022 Creatinine [Mass/Vol] 1.5 mg/dL 0.6-1.3 [facility] Comment on above: ER/ESD physician is notified/shown all ISTAT results.Critical values may be confirmed by laboratory testing ifdeemed necessary by ER attending doctor. Creatinine (Bld) [Mass/Vol]O rdered By: Heather Omalley on 07-24-2022 Creatinine [Mass/Vol] 1.6 mg/dL 0.6-1.3 [facility] Comment on above: ER/ESD physician is notified/shown all ISTAT results.Critical values may be confirmed by laboratory testing ifdeemed necessary by ER attending doctor. No Panel InformationOrdered By: Heather Omalley on 07-24-2022 POC Estimated GFR 51 [facility] Comment on above: GFR estimated refere nce range: According to KDOQI guidelines, <60 ml/min/1.73m2 is sufficient to diagnose a patient with chronic kidney disease. POC Estimated GFR Non- Amer 42 [facility] Blood activated clotting lacho e by coagulation assayOrdered By: Margarito Valentine on 07-02-2022 ACT Coag (Bld) 215 s 90-139 [facility] Comment on above: Reference Range: 90- 139 (Non-heparinized) Basophils Auto (Bld) [#/Vol] Ordered By: Margarito Valentine on 06-21-2022 Basophils (Bld) [#/Vol] 0.1 10*3/uL 0.0-0.2 [facility] Basophils/100 WBC Auto (Bld) Ordered By: Margarito Valentine on 06-21-2022 Basophils/100 WBC (Bld) 0.9 % . [facility] Creatinine and Glomerular fi ltration rate.predicted panel (S/P/Bld)Ordered By: Margarito Valentine on 06-21-2022 Creatinine [Mass/Vol] 1.24 mg/dL 0.64-1.27 [facility] Eosinophils Auto (Bld) [#/Vo l]Ordered By: Margarito Valentine on 06-21-2022 Eosinophils (Bld) [#/Vol] 0.2 10*3/uL 0.0-0.45 [facility] Eosinophils/100 WBC Auto (Bl d)Ordered By: Margarito Valentine on 06-21-2022 Eosinophils/100 WBC (Bld) 2.5 % . [facility] Erythrocyte distribution wid th Auto (RBC) [Ratio]Ordered By: Margarito Valentine on 06-21-2022 Erythrocyte distribution width (RBC) [Ratio] 18.0 % 12.0-14.8 [facility] Estimated glomerular filtrat ion rate (GFR) non- AmericanOrdered By: Margarito Valentine on 06-21-2022 GFR/1.73 sq M.predicted among non-blacks MDRD (S/P/Bld) [Vol rate/Area] 56 mL/Min [facility] Hematocrit Auto (Bld) [Volum e fraction]Ordered By: Margarito Valentine on 06-21-2022 Hematocrit (Bld) [Volume fraction] 37.7 % 38.8-50.0 [facility] Hemoglobin [Mass/volume] in BloodOrdered By: Margarito Valentine on 06-21-2022 Hemoglobin (Bld) [Mass/Vol] 12.3 g/dL 13.0-17.0 [facility] Leukocytes [#/volume] correc phil for nucleated erythrocytes in Blood by Automated counOrdered By: Margarito Valentine on 06-21-2022 WBC corrected for nucl RBC Auto (Bld) [#/Vol] 7.1 10*3/uL 4.1-10.5 [facility] Lymphocytes Auto (Bld) [#/Vo l]Ordered By: Margarito Valentine on 06-21-2022 Lymphocytes (Bld) [#/Vol] 1.3 10*3/uL 1.00-4.8 [facility] Lymphocytes/100 WBC Auto (Bl d)Ordered By: Margarito Valentine on 06-21-2022 Lymphocytes/100 WBC (Bld) 18.7 % . [facility] MCH Auto (RBC) [Entitic mass ]Ordered By: Margarito Valentine on 06-21-2022 MCH (RBC) [Entitic mass] 28.2 pg 27.5-35.2 [facility] MCHC Auto (RBC) [Mass/Vol]Or dered By: Margarito Valentine on 06-21-2022 MCHC (RBC) [Mass/Vol] 32.6 g/dL 32.5-35.6 [facility] MCV Auto (RBC) [Entitic vol] Ordered By: Margarito Valentine on 06-21-2022 MCV (RBC) [Entitic vol] 86.5 fL 83.5-101 [facility] Monocytes Auto (Bld) [#/Vol] Ordered By: Margarito Valentine on 06-21-2022 Monocytes (Bld) [#/Vol] 0.7 10*3/uL 0.0-0.8 [facility] Monocytes/100 WBC Auto (Bld) Ordered By: Margarito Valentine on 06-21-2022 Monocytes/100 WBC (Bld) 10.3 % . [facility] Neutrophils Auto (Bld) [#/Vo l]Ordered By: Margarito Valentine on 06-21-2022 Neutrophils (Bld) [#/Vol] 4.8 10*3/uL 1.8-7.7 [facility] Neutrophils/100 WBC Auto (Bl d)Ordered By: Margarito Valentine on 06-21-2022 Neutrophils/100 WBC (Bld) 67.6 % . [facility] No Panel InformationOrdered By: Margarito Valentine on 06-21-2022 Estimated GFR () > 60 mL/Min [facility] Comment on above: GFR estimated refere nce range: According to KDOQI guidelines, <60 ml/min/1.73m2 is sufficient to diagnose a patient with chronic kidney disease. Pharmacy Creatinine Clearance (Chem N/A [facility] Nucleated erythrocytes [Pres ence] in Blood by Automated countOrdered By: Margarito Valentine on 06-21-2022 Nucleated RBC Auto Ql (Bld) 0.1 /100{WBC} 0-0.5 [facility] Platelet mean volume Auto (B ld) [Entitic vol]Ordered By: Margarito Valentine on 06-21-2022 Platelet mean volume (Bld) [Entitic vol] 8.2 fL 6.6-10.1 [facility] Platelets Auto (Bld) [#/Vol] Ordered By: Margarito Valentine on 06-21-2022 Platelets (Bld) [#/Vol] 149 10*3/uL 150-450 [facility] RBC Auto (Bld) [#/Vol]Ordere d By: Margarito Valentine on 06-21-2022 RBC (Bld) [#/Vol] 4.36 10*6/uL 3.90-5.60 [facility] Serum or plasma anion gap de terminationOrdered By: Margarito Valentine on 06-21-2022 Anion gap [Moles/Vol] 10.8 mmol/L 6.0-15.0 [facility] Serum or plasma calcium elan urement (mass/volume)Ordered By: Margarito Valentine on 06-21-2022 Calcium [Mass/Vol] 8.8 mg/dL 8.2-10.2 [facility] Serum or plasma chloride herb surement (moles/volume)Ordered By: Margarito Valentine on 06-21-2022 Chloride [Moles/Vol] 107 mmol/L 95-114 [facility] Serum or plasma glucose elan urement (mass/volume)Ordered By: Margarito Valentine on 06-21-2022 Glucose [Mass/Vol] 103 mg/dL 70-100 [facility] Comment on above: ADA recommended refe rence rangeRandom Glucose Reference Range is dependent on time and content of last meal. Glucose of more than 200 mg/dL in a nonstressed, ambulatory subject supports the diagnosis of Diabetes Mellitus. Serum or plasma potassium me asurement (moles/volume)Ordered By: Margarito Valentine on 06-21-2022 Potassium [Moles/Vol] 4.2 mmol/L 3.5-5.1 [facility] [place] [facility] Serum or plasma sodium measu rement (moles/volume)Ordered By: Margarito Valentine on 06-21-2022 Sodium [Moles/Vol] 138 mmol/L 136-146 [facility] Serum or plasma total carbon dioxide measurement (moles/volume)Ordered By: Margarito Valentine on 06-21-2022 CO2 [Moles/Vol] 24.4 mmol/L 22.0-30.0 [facility] Serum or plasma urea nitroge n measurement (mass/volume)Ordered By: Margarito Valentine on 06-21-2022 Urea nitrogen [Mass/Vol] 18 mg/dL 02-15 [facility] WBC Auto (Bld) [#/Vol]Ordere d By: Margarito Valentine on 06-21-2022 WBC (Bld) [#/Vol] 7.1 10*3/uL 4.1-10.5 [facility] Office Visit (Cardiology)on 06-03-2022 Follow-up visit [...] Complaint ALEX ANDERSON is being seen for [facility] [place] [facility]g. 76-year-old white male [...] Signs Recorded: 03Jun2022 03:38PM Heart Rate71, Apical Hgbgueso547, LUE, Sitting Mnkgonpbx26, LUE, Sitting Height6 ft 2 in Zofefq413 lb BMI Guerjowimf77.45 kg/m2 BSA Calculated2.2 Tobacco Useb) No PHQ-2 [...] , regular (more content not included)... Normal [employer] Tobacco Screening.on 023 Adult depression screening assessment No [facility]-Sandu sushil 250 DO Work Phone: Fall risk assessment a) No falls within the last year [facility]-Sandu sushil 250 DO Work Phone: Tobacco use status CPHS b) No M [facility]-Tellyu sushil 250 DO Work Phone: Basophils Auto (Bld) [#/Vol] Ordered By: Bernabe Cr on 05-22-2022 Basophils (Bld) [#/Vol] 0.1 10*3/uL 0.0-0.2 [facility] Basophils/100 WBC Auto (Bld) Ordered By: Bernabe Cr on 05-22-2022 Basophils/100 WBC (Bld) 1.2 % . [facility] Creatinine and Glomerular fi ltration rate.predicted panel (S/P/Bld)Ordered By: Bernabe Cr on 05-22-2022 Creatinine [Mass/Vol] 1.78 mg/dL 0.64-1.27 [facility] [place] [facility] Eosinophils Auto (Bld) [#/Vo l]Ordered By: Bernabe rC on 05-22-2022 Eosinophils (Bld) [#/Vol] 0.3 10*3/uL 0.0-0.45 [facility] Eosinophils/100 WBC Auto (Bl d)Ordered By: Bernabe Cr on 05-22-2022 Eosinophils/100 WBC (Bld) 3.6 % . [facility] Erythrocyte distribution wid th Auto (RBC) [Ratio]Ordered By: Bernabe Cr on 05-22-2022 Erythrocyte distribution width (RBC) [Ratio] 15.3 % 12.0-14.8 [facility] Estimated glomerular filtrat ion rate (GFR) non- AmericanOrdered By: Bernabe Cr on 05-22-2022 GFR/1.73 sq M.predicted among non-blacks MDRD (S/P/Bld) [Vol rate/Area] 37 mL/Min [facility] Hematocrit Auto (Bld) [Volum e fraction]Ordered By: Bernabe Cr on 05-22-2022 Hematocrit (Bld) [Volume fraction] 36.2 % 38.8-50.0 [facility] Hemoglobin [Mass/volume] in BloodOrdered By: Bernabe Cr on 05-22-2022 Hemoglobin (Bld) [Mass/Vol] 11.7 g/dL 13.0-17.0 [facility] Leukocytes [#/volume] correc phil for nucleated erythrocytes in Blood by Automated counOrdered By: Bernabe Cr on 05-22-2022 WBC corrected for nucl RBC Auto (Bld) [#/Vol] 8.1 10*3/uL 4.1-10.5 [facility] Lymphocytes Auto (Bld) [#/Vo l]Ordered By: Bernabe Cr on 05-22-2022 Lymphocytes (Bld) [#/Vol] 1.4 10*3/uL 1.00-4.8 [facility] Lymphocytes/100 WBC Auto (Bl d)Ordered By: Bernabe Cr on 05-22-2022 Lymphocytes/100 WBC (Bld) 16.9 % . [facility] MCH Auto (RBC) [Entitic mass ]Ordered By: Bernabe Cr on 05-22-2022 MCH (RBC) [Entitic mass] 27.4 pg 27.5-35.2 [facility] MCHC Auto (RBC) [Mass/Vol]Or dered By: Bernabe Cr on 05-22-2022 MCHC (RBC) [Mass/Vol] 32.5 g/dL 32.5-35.6 [facility] [place] [facility] MCV Auto (RBC) [Entitic vol] Ordered By: Bernabe Cr on 05-22-2022 MCV (RBC) [Entitic vol] 84.3 fL 83.5-101 [facility] Monocytes Auto (Bld) [#/Vol] Ordered By: Bernabe Cr on 05-22-2022 Monocytes (Bld) [#/Vol] 0.8 10*3/uL 0.0-0.8 [facility] Monocytes/100 WBC Auto (Bld) Ordered By: Bernabe Cr on 05-22-2022 Monocytes/100 WBC (Bld) 10.1 % . [facility] Neutrophils Auto (Bld) [#/Vo l]Ordered By: Bernabe Cr on 05-22-2022 Neutrophils (Bld) [#/Vol] 5.6 10*3/uL 1.8-7.7 [facility] Neutrophils/100 WBC Auto (Bl d)Ordered By: Bernabe Cr on 05-22-2022 Neutrophils/100 WBC (Bld) 68.2 % . [facility] No Panel InformationOrdered By: Bernabe Cr on 05-22-2022 Estimated GFR () 45 mL/Min [facility] Comment on above: GFR estimated refere nce range: According to KDOQI guidelines, <60 ml/min/1.73m2 is sufficient to diagnose a patient with chronic kidney disease. Pharmacy Creatinine Clearance (Chem 39.77 [facility] Nucleated erythrocytes [Pres ence] in Blood by Automated countOrdered By: Bernabe Cr on 05-22-2022 Nucleated RBC Auto Ql (Bld) 0.1 /100{WBC} 0-0.5 [facility] Platelet mean volume Auto (B ld) [Entitic vol]Ordered By: Bernabe Cr on 05-22-2022 Platelet mean volume (Bld) [Entitic vol] 8.7 fL 6.6-10.1 [facility] Platelets Auto (Bld) [#/Vol] Ordered By: Bernabe Cr on 05-22-2022 Platelets (Bld) [#/Vol] 198 10*3/uL 150-450 [facility] RBC Auto (Bld) [#/Vol]Ordere d By: Bernabe Cr on 05-22-2022 RBC (Bld) [#/Vol] 4.29 10*6/uL 3.90-5.60 [facility] Serum or plasma anion gap de terminationOrdered By: Bernabe Cr on 05-22-2022 Anion gap [Moles/Vol] 13.3 mmol/L 6.0-15.0 [facility] Serum or plasma calcium elan urement (mass/volume)Ordered By: Bernabe Cr on 05-22-2022 Calcium [Mass/Vol] 8.3 mg/dL 8.2-10.2 [facility] Serum or plasma chloride herb surement (moles/volume)Ordered By: Bernabe Cr on 05-22-2022 Chloride [Moles/Vol] 104 mmol/L 95-114 [facility] Serum or plasma glucose elan urement (mass/volume)Ordered By: Bernabe Cr on 05-22-2022 Glucose [Mass/Vol] 180 mg/dL 70-100 [facility] Comment on above: ADA recommended refe rence rangeRandom Glucose Reference Range is dependent on time and content of last meal. Glucose of more than 200 mg/dL in a nonstressed, ambulatory subject supports the diagnosis of Diabetes Mellitus. Serum or plasma potassium me asurement (moles/volume)Ordered By: Bernabe Cr on 05-22-2022 Potassium [Moles/Vol] 3.3 mmol/L 3.5-5.1 [facility] [place] [facility] Serum or plasma sodium measu rement (moles/volume)Ordered By: Bernabe Cr on 05-22-2022 Sodium [Moles/Vol] 137 mmol/L 136-146 [facility] Serum or plasma total carbon dioxide measurement (moles/volume)Ordered By: Bernabe Cr on 05-22-2022 CO2 [Moles/Vol] 23.0 mmol/L 22.0-30.0 [facility] Serum or plasma urea nitroge n measurement (mass/volume)Ordered By: Bernabe Cr on 05-22-2022 Urea nitrogen [Mass/Vol] 21 mg/dL 9-23 [facility] WBC Auto (Bld) [#/Vol]Ordere d By: Bernabe Cr on 05-22-2022 WBC (Bld) [#/Vol] 8.1 10*3/uL 4.1-10.5 [facility] No Panel InformationOrdered By: Bernabe Cr on 05-21-2022 25-Hydroxy Vitamin D Total 15.9 ng/mL 30-100 [facility] Comment on above: VITAMIN D STATUS 25( [place])VITAMIN D RANGE (ng/mL) Deficient <20 Insufficient 20 to <30Sufficient 30 to 100Reference: Sixto MF,Federico NC, Palomo LESLIE, et al. Evaluation,treatment, and prevention of vitamin D deficiency; an Endocrine Society clinical practice guideline. JCEM. 2010; 96(7):1911-30. Vitamin C level 0.2 mg/dL 0.4-2.0 [facility] Comment on above: This test was develo ped and its performance characteristicsdetermined by [employer]. It has not been cleared orapproved by the Food and Drug Administration.Vitamin C deficiency is generally defined as plasma orserum concentrations less than 0.2 mg/dL and levels between0.2 and 0.4 mg/dL are considered low.Performed at: [facility] [employer] [id number] Director: Mamadou Rodriguez MD, Phone: [phone] Folate [Mass/volume] in Seru m or PlasmaOrdered By: Taz Barnes on 05-20-2022 Folate [Mass/Vol] 5.5 ng/mL >5.9 [facility] Comment on above: Folate reference ran ge: >5.9 ng/mlThe WHO technical consultation on folate and vitamin [id number] has determined that folate concentrations lessthan 4 ng/ml are considered deficient. Laboratory - Chemistry and C hemistry - challengeOrdered By: Taz Barnes on 05-20-2022 Cobalamin (Vitamin B12) [Mass/Vol] 169 pg/mL 180-914 [facility] No Panel InformationOrdered By: Taz Barnes on 05-20-2022 Ova and Parasite Result 1 [facility] Ova and Parasite Result 1 [facility] Ova or parasites identificat ionOrdered By: Taz Barnes on 05-20-2022 Ova and parasites identified LM Nom (Unsp spec) [facility] Ova and parasites identified LM Nom (Unsp spec) [facility] Laboratory - Chemistry and C hemistry - challengeOrdered By: Janice Gonzalez on 05-19-2022 Magnesium [Mass/Vol] 1.7 mg/dL 1.6-2.6 [facility] Automated erythrocytes count in urine sediment (number/area)Ordered By: Taz Barnes on 05-18-2022 RBC Auto (Urine sed) [#/Area] 50-100 [HPF] 0-4 [facility] Automated leukocytes count i n urine sediment (number/area)Ordered By: Taz Barnes on 05-18-2022 WBC Auto (Urine sed) [#/Area] Innumerable [HPF] 0-4 [facility] Automated urine hyaline cast s count (number/volume)Ordered By: Taz Barnes on 05-18-2022 Hyaline casts Auto (U) [#/Vol] None seen [LPF] 0-1 [facility] Bilirubin Test strip Ql (U)O rdered By: Taz Barnes on 05-18-2022 Bilirubin Ql (U) Negative Negative [facility] Casts typing in urine sedime nt by light microscopyOrdered By: Taz Barnes on 05-18-2022 Casts LM Nom (Urine sed) None seen [LPF] None Seen [facility] Color Auto (U)Ordered By: Starr Barnes on 05-18-2022 Color (U) Yellow Yellow [facility] Ketones Auto test strip (U) [Mass/Vol]Ordered By: Taz Barnes on 05-18-2022 Ketones (U) [Mass/Vol] Negative Negative [facility] Nitrite Test strip Ql (U)Ord ered By: Taz Barnes on 05-18-2022 Nitrite Ql (U) Negative Negative [facility] Protein Auto test strip (U) [Mass/Vol]Ordered By: Taz Barnes on 05-18-2022 Protein (U) [Mass/Vol] 100 mg/dL Negative [facility] Specific gravity Auto test s trip (U) [Rel density]Ordered By: Taz Barnes on 05-18-2022 Specific gravity (U) [Rel density] 1.010 1.001-1.03 0 [facility] Squamous epithelial cells de tection in urine sediment by light microscopyOrdered By: Taz Barnes on 05-18-2022 Epithelial cells.squamous LM Ql (Urine sed) 1-2 [HPF] 0-2 [facility] Urine bacteria detection by automated methodOrdered By: Taz Barnes on 05-18-2022 Bacteria Auto Ql (U) None seen None Seen [facility] Urine clarity by refractomet ry automatedOrdered By: Taz Barnes on 05-18-2022 Clarity Refractometry automated (U) Turbid Clear [facility] Urine culture routineOrdered By: Taz Barnes on 05-18-2022 Bacteria identified Cx Nom (U) No Growth 2 Days [facility] Bacteria identified Cx Nom (U) No Growth 2 Days [facility] Urine glucose measurement by automated test strip (mass/volume)Ordered By: Taz Barnes on 05-18-2022 Glucose Auto test strip (U) [Mass/Vol] Normal mg/dL Normal [facility] Urine hemoglobin detection b y automated test stripOrdered By: Taz Barnes on 05-18-2022 Hemoglobin Auto test strip Ql (U) 2+ Negative [facility] Urine leukocyte esterase det ection by automated test stripOrdered By: Taz Barnes on 05-18-2022 Leukocyte esterase Auto test strip Ql (U) 4+ Negative [facility] Urobilinogen Auto test strip (U) [Mass/Vol]Ordered By: Taz Barnes on 05-18-2022 Urobilinogen (U) [Mass/Vol] Normal mg/dL Normal [facility] Yeast detection in urine sed iment by light microscopyOrdered By: Taz Barnes on 05-18-2022 Yeast LM Ql (Urine sed) None seen [HPF] None Se en [facility] pH Auto test strip (U)Ordere d By: Taz Barnes on 05-18-2022 pH (U) 7.5 [pH] 5.0-9.0 [facility] Activated partial thrombopla stin time (aPTT) in platelet poor plasma by coagulation aOrdered By: Taz Barnes on 05-16-2022 aPTT Coag (PPP) [Time] 29.5 s 25.1-36.5 [facility] Body fluid albumin measureme nt (mass/volume)Ordered By: Taz Barnes on 05-16-2022 Albumin (Body fld) [Mass/Vol] 2.9 g/dL 3.2-5.5 [facility] CBC AUTO DIFFon 05-16-2022 BASO # 0.0 103/ul Normal 0.0-0.1 [facility] Comment on above: Performed By: #### C BC #### [facility] [address] [address] [address] Karen Pierce Basophils/100 WBC (Bld) 0.3 % Normal 0.2-2.0 [facility] Comment on above: Performed By: #### C BC #### [facility] [address] [address] [address] Karen Pierce EO # 0.1 103/ul Normal 0.0-0.7 [facility] Comment on above: Performed By: #### C BC #### [facility] [address] [address] [address] Karen Pierce Eosinophils/100 WBC (Bld) 0.7 % Critically low 0.9-7.0 [facility] Comment on above: Performed By: #### C BC #### [facility] [address] [address] [address] Karen Pierce Erythrocyte distribution width (RBC) [Ratio] 14.8 % Normal 11.0-15.0 [facility] Comment on above: Performed By: #### C BC #### [facility] [address] [address] [address] Karen Pierce Hematocrit (Bld) [Volume fraction] 39.4 % Critically low 42.0-54.0 [facility] Comment on above: Performed By: #### C BC #### [facility] [address] [address] [address] Karen Pierce Hemoglobin (Bld) [Mass/Vol] 12.6 g/dL Critically low 14.0-18.0 [facility] Comment on above: Performed By: #### C BC #### [facility] [address] [place] [address] Dr. Karen Pierce IG # 0.04 10e3/ul Critically high 0.00-0.03 [facility] Comment on above: Performed By: #### C BC #### [facility] [address] [place] [address] Dr. Karen Pierce IG % 0.4 % Normal 0.0-0.5 [facility] Comment on above: Performed By: #### C BC #### [facility] [address] [place] [address] Dr. Karen Pierce LYMPH # 1.2 103/ul Normal 1.2-3.8 [facility] Comment on above: Performed By: #### C BC #### [facility] [address] [place] [address] Dr. Karen Pierce Lymphocytes/100 WBC (Bld) 11.8 % Critically low 20.5-60.0 [facility] Comment on above: Performed By: #### C BC #### [facility] [address] [place] [address] Dr. Karen Pierce MANUAL DIFF REQ NO Normal [facility] Comment on above: Performed By: #### C BC #### [facility] [address] [place] [address] Dr. Karen Pierce MCH (RBC) [Entitic mass] 27.5 pg Normal 25.9-34.0 [facility] Comment on above: Performed By: #### C BC #### [facility] [address] [place] [address] Dr. Karen Pierce MCHC (RBC) [Mass/Vol] 32.0 g/dL Normal 29.9-35.2 [facility] Comment on above: Performed By: #### C BC #### [facility] [address] [place] [address] Dr. Karen Pierce MCV (RBC) [Entitic vol] 86.0 fL Normal 80.0-94.0 [facility] Comment on above: Performed By: #### C BC #### [facility] [address] [address] [address] Karen Pierce MONO # 1.4 103/ul Critically high 0.3-0.8 [facility] Comment on above: Performed By: #### C BC #### [facility] [address] [place] [address] Dr. Karen Pierce Monocytes/100 WBC (Bld) 13.8 % Critically high 1.7-12. 0 [facility] Comment on above: Performed By: #### C BC #### [facility] [address] [place] [address] Dr. Karen Pierce NEUT # 7.6 103/ul Critically high 1.4-6.5 [facility] Comment on above: Performed By: #### C BC #### [facility] [address] [place] [address] Dr. Karen Pierce Neutrophils/100 WBC (Bld) 73.0 % Normal 43.0-75.0 [facility] Comment on above: Performed By: #### C BC #### [facility] [address] [place] [address] Dr. Karen Pierce Platelet mean volume (Bld) [Entitic vol] 10.6 fL Normal 9.5-13.5 [facility] Comment on above: Performed By: #### C BC #### [facility] [address] [place] [address] Dr. Karen Pierce PLT 193 103/ul Normal 150-450 [facility] Comment on above: Performed By: #### C BC #### [facility] [address] [place] [address] Dr. Karen Pierce RBC 4.58 106/ul Critically low 4.70-6.10 [facility] Comment on above: Performed By: #### C BC #### [facility] [address] [place] [address] Dr. Karen Pierce WBC 10.4 103/ul Normal 4.0-11.0 [facility] Comment on above: Performed By: #### C BC #### [facility] [address] [place] [address] ABD/PELVIS WO CONon [...] SCHERER Date: 2022-05-16 09:21 Normal [facility] CULTURE URINEon 05-16-2022 CULTURE URINE Culture Observations : MODERATE GROWTH OF MIXED SKIN JAS. NO POTENTIAL PATHOGENS SEEN. Normal [facility] Comment on above: Performed By: #### U RTPCR #### [facility] [address] [place], [place] [address] Dr. Karen Pierce Covid-19 PCR ([facility])on 04-26 SARS-CoV-2 (COVID-19) RNA KARI+probe Ql (Unsp spec) Not detected Normal NOT DETECTED [facility] Comment on above: Result Comment: When [...] for this test is supported by the Head Banquet Waiter/Waitress of Health and Human Service's declaration that [...] Performed By: #### U A #### [facility] [address], [place] [address] Dr. Karen Pierce Creatinine [Mass/volume] in UrineOrdered By: Taz Barnes on 05-16-2022 Creatinine (U) [Mass/Vol] 68.1 mg/dL [facility] Comment on above: No reference range e stablished ER URINE PROFILEon Bilirubin Ql (U) Negative Normal NEGATIVE [facility] Comment on above: Performed By: #### U RTPCR #### [facility] [address] [address] [address] Karen Pierce Clarity (U) CLEAR Normal CLEAR [facility] Comment on above: Performed By: #### U RTPCR #### [facility] [address] [place] [address] Dr. Karen Pierce Color (U) YELLOW Normal YELLOW [facility] Comment on above: Performed By: #### U RTPCR #### [facility] [address] [place] [address] Dr. Karen Pierce ERUSUHA A micrscopic examina tion will be performed if indicated. Normal [facility] Comment on above: Performed By: #### U RTPCR #### [facility] [address] [place] [address] Dr. Karen Pierce Glucose Ql (U) Negative Normal NEGATIVE [facility] Comment on above: Performed By: #### U RTPCR #### [facility] [address] [place] [address] Dr. Karen Pierce Hemoglobin Ql (U) MODERATE Abnormal NEGATIVE [facility] Comment on above: Performed By: #### U RTPCR #### [facility] [address] [place] [address] Dr. Karen Pierce Ketones Ql (U) Negative Normal NEGATIVE [facility] Comment on above: Performed By: #### U RTPCR #### [facility] [address] [place] [address] Dr. Karen Pierce LEUKOCYTES LARGE Abnormal NEGATIVE [facility] Comment on above: Performed By: #### U RTPCR #### [facility] [address] [place] [address] Dr. Karen Pierce Nitrite Ql (U) Negative Normal NEGATIVE [facility] Comment on above: Performed By: #### U RTPCR #### [facility] [address] [place] [address] Dr. Karen Pierce pH (U) 5.5 [pH] Normal 5-9 [facility] Comment on above: Performed By: #### U RTPCR #### [facility] [address] [address] [address] Karen Pierce SPEC GRAVITY <=1.005 Abnormal 1.005-<=1. 025 [facility] Comment on above: Performed By: #### U RTPCR #### [facility] [address] [place] [address] Dr. Karen Pierce UA PROTEIN Negative Normal NEGATIVE/ TRACE [facility] Comment on above: Performed By: #### U RTPCR #### [facility] [address] [address] [address] Karen Pierce UR MICRO IND INDICATED Normal [facility] Comment on above: Performed By: #### U RTPCR #### [facility] [address] [place] [address] Dr. Karen Pierce Urobilinogen Qn (U) 0.2 {Tonio'U}/dL Normal 0.2 - 1. 0 [facility] Comment on above: Performed By: #### U RTPCR #### [facility] [address] [place] [address] Dr. Karen Pierce Globulin Calc (S) [Mass/Vol] Ordered By: Taz Barnes on 05-16-2022 Globulin (S) [Mass/Vol] 3.5 g/dL [facility] - CoagulationOrde red By: Taz Barnes on 05-16-2022 PT Coag (PPP) [Time] 14.2 s 9.0-12.9 [facility] PROF 14(COMP METB)on 022 Albumin [Mass/Vol] 3.1 g/dL Critically low 3.4-5.0 Th e [facility] Comment on above: Performed By: #### U RTPCR #### [facility] [address] [place] [address] Dr. Karen Pierce Albumin/Globulin [Mass ratio] 0.7 {ratio} Normal [facility] Comment on above: Performed By: #### U RTPCR #### [facility] [address] [place] [address] Dr. Karen Pierce ALP [Catalytic activity/Vol] 96 U/L Normal 46-116 [facility] Comment on above: Performed By: #### U RTPCR #### [facility] [address] [address] [address] Karen Pierce ALT [Catalytic activity/Vol] 46 U/L Normal 16-63 [facility] Comment on above: Performed By: #### U RTPCR #### [facility] [address] [address] [address] Karen Pierce Anion gap [Moles/Vol] 19.7 mmol/L Normal Th e [facility] Comment on above: Performed By: #### U RTPCR #### [facility] [address] [address] [address] Karen Pierce AST [Catalytic activity/Vol] 21 U/L Normal 15-37 [facility] Comment on above: Performed By: #### U RTPCR #### [facility] [address] [place] [address] Dr. Karen Pierce Bilirubin [Mass/Vol] 0.3 mg/dL Normal 0.2-1.0 [facility] Comment on above: Performed By: #### U RTPCR #### [facility] [address] [address] [address] Karen Pierce Calcium [Mass/Vol] 8.9 mg/dL Normal 8.5-10.1 [facility] Comment on above: Performed By: #### U RTPCR #### [facility] [address] [address] [address] Karen Pierce Chloride [Moles/Vol] 101 mmol/L Normal 98-107 [facility] Comment on above: Performed By: #### U RTPCR #### [facility] [address] [address] [address] Karen Pierce CO2 [Moles/Vol] 18.3 mmol/L Critically low 21.0-32.0 [facility] Comment on above: Performed By: #### U RTPCR #### [facility] [address] [address] [address] Karen Pierce Creatinine [Mass/Vol] 8.99 mg/dL Critically high 0.70-1.30 [facility] Comment on above: Performed By: #### U RTPCR #### [facility] [address] [address] [address] Karen Pierce EGFR-AF NIGERIAN 7 mL/min/1.73m2 Critically low >=60 [facility] Comment on above: Performed By: #### U RTPCR #### [facility] [address] [address] [address] Karen Pierce EGFR-NON AF NIGERIAN 6 mL/min/1.73m2 Critically low >=60 [facility] Comment on above: Performed By: #### U RTPCR #### [facility] [address] [address] [address] Karen Pierce Globulin (S) [Mass/Vol] 4.7 g/dL Normal [facility] Comment on above: Performed By: #### U RTPCR #### [facility] [address] [address] [address] Karen Pierce Glucose [Mass/Vol] 110 mg/dL Critically high 74-106 [facility] Comment on above: Performed By: #### U RTPCR #### [facility] [address] [address] [address] Karen Pierce Potassium [Moles/Vol] 5.0 mmol/L Normal 3.5-5.1 [facility] Comment on above: Performed By: #### U RTPCR #### [facility] [address] [address] [address] Karen Pierce Protein [Mass/Vol] 7.8 g/dL Normal 6.4-8.2 [facility] Comment on above: Performed By: #### U RTPCR #### [facility] [address] [address] [address] Karen Pierce Sodium [Moles/Vol] 134 mmol/L Critically low 136-145 [facility] Comment on above: Performed By: #### U RTPCR #### [facility] [address] [address] [address] Karen Pierce Urea nitrogen [Mass/Vol] 129.0 mg/dL Critically high 7.0-18.0 [facility] Comment on above: Performed By: #### U RTPCR #### [facility] [address] [place], [place] [address] Dr. Karen Pierce Urea nitrogen/Creatinine [Mass ratio] 14.3 mg/mg Normal [facility] Comment on above: Performed By: #### U RTPCR #### [facility] [address] [place], [place] [address] Dr. Karen Pierce Platelet poor plasma interna tional normalized ratio (INR) by coagulation assay (relatOrdered By: Taz Barnes on 05-16-2022 INR Coag (PPP) [Relative time] 1.3 {INR} [facility] Comment on above: INR Therapeutic Rang [...] on 05-16-2022 Protein [Mass/Vol] 6.4 g/dL 6.1-7.9 [facility] Serum or plasma alanine bal otransferase measurement without P-5'-P (enzymatic activiOrdered By: Taz Barnes on 05-16-2022 ALT No additional P-5'-P [Catalytic activity/Vol] 38 U/L 10-60 [facility] Serum or plasma albumin/glob ulin mass ratioOrdered By: Taz Barnes on 05-16-2022 Albumin/Globulin [Mass ratio] 0.8 {ratio} [facility] Serum or plasma alkaline denote sphatase measurement (enzymatic activity/volume)Ordered By: Taz Barnes on 05-16-2022 ALP [Catalytic activity/Vol] 78 U/L 32-92 [facility] Serum or plasma aspartate am inotransferase measurement (enzymatic activity/volume)Ordered By: Taz Barnes on 05-16-2022 AST [Catalytic activity/Vol] 19 U/L 10-42 [facility] Serum or plasma total biliru bin measurement (mass/volume)Ordered By: Taz Barnes on 05-16-2022 Bilirubin [Mass/Vol] 0.4 mg/dL 0.3-1.2 [facility] URINE MICROSCOPIC ONLYon BACTERIA SMALL Abnormal NONE SEEN [facility] Comment on above: Performed By: #### U RTPCR #### [facility] [address] [place] [address] Dr. Karen Pierce Bacteria identified Cx Nom (U) INDICATED Normal [facility] Comment on above: Performed By: #### U RTPCR #### [facility] [address] [place] [address] Dr. Karen Pierce CAST NONE SEEN Normal NONE SEEN [facility] Comment on above: Performed By: #### U RTPCR #### [facility] [address] [place] [address] Dr. Karen Pierce Crystals LM Nom (Urine sed) NONE SEEN Normal NONE SEEN [facility] Comment on above: Performed By: #### U RTPCR #### [facility] [address] [place] [address] Dr. Karen Pierce Epithelial cells LM Ql (Urine sed) NONE SEEN Normal NONE SEEN /RARE [facility] Comment on above: Performed By: #### U RTPCR #### [facility] [address] [place] [address] Dr. Karen Pierce MUCOUS NONE SEEN Normal NONE SEEN [facility] Comment on above: Performed By: #### U RTPCR #### [facility] [address] [place] [address] Dr. Karen Pierce RBC 20-50 Abnormal 0-2 [facility] Comment on above: Performed By: #### U RTPCR #### [facility] [address] [place] [address] Dr. Karen Pierce WBC (U) [#/Vol] /uL Abnormal NONE SEEN [facility] Comment on above: Performed By: #### U RTPCR #### [facility] [address] [place] [address] Dr. Karen Pierce Urine sodium measurement (mo les/volume)Ordered By: Taz Barnes on 05-16-2022 Sodium (U) [Moles/Vol] 42.0 mmol/L F [facility] Comment on above: No reference range [...] SCHERER Date: 2022-05-16 09:25 Normal [facility] CBC AUTO DIFFon 05-15-2022 BASO # 0.0 103/ul Normal 0.0-0.1 [facility] Comment on above: Performed By: #### U A #### [facility] [address] [address] [address] Karen Pierce Basophils/100 WBC (Bld) 0.3 % Normal 0.2-2.0 [facility] Comment on above: Performed By: #### U A #### [facility] [address] [address] [address] Karen Pierce EO # 0.1 103/ul Normal 0.0-0.7 [facility] Comment on above: Performed By: #### U A #### [facility] [address] [address] [address] Karen Pierce Eosinophils/100 WBC (Bld) 0.7 % Critically low 0.9-7.0 [facility] Comment on above: Performed By: #### U A #### [facility] [address] [address] [address] Karen Pierce Erythrocyte distribution width (RBC) [Ratio] 14.9 % Normal 11.0-15.0 [facility] Comment on above: Performed By: #### U A #### [facility] [address] [place] [address] Dr. Karen Pierce Hematocrit (Bld) [Volume fraction] 39.8 % Critically low 42.0-54.0 [facility] Comment on above: Performed By: #### U A #### [facility] [address] [place] [address] Dr. Karen Pierce Hemoglobin (Bld) [Mass/Vol] 12.7 g/dL Critically low 14.0-18.0 [facility] Comment on above: Performed By: #### U A #### [facility] [address] [place] [address] Dr. Karen Pierce IG # 0.06 10e3/ul Critically high 0.00-0.03 [facility] Comment on above: Performed By: #### U A #### [facility] [address] [place] [address] Dr. Karen Pierce IG % 0.5 % Normal 0.0-0.5 [facility] Comment on above: Performed By: #### U A #### [facility] [address] [place] [address] Dr. Karen Pierce LYMPH # 0.9 103/ul Critically low 1.2-3.8 [facility] Comment on above: Performed By: #### U A #### [facility] [address] [place] [address] Dr. Karen Pierce Lymphocytes/100 WBC (Bld) 7.1 % Critically low 20.5-60.0 [facility] Comment on above: Performed By: #### U A #### [facility] [address] [place] [address] Dr. Karen Pierce MANUAL DIFF REQ NO Normal [facility] Comment on above: Performed By: #### U A #### [facility] [address] [place] [address] Dr. Karen Pierce MCH (RBC) [Entitic mass] 27.7 pg Normal 25.9-34.0 [facility] Comment on above: Performed By: #### U A #### [facility] [address] [address] [address] Karen Pierce MCHC (RBC) [Mass/Vol] 31.9 g/dL Normal 29.9-35.2 [facility] Comment on above: Performed By: #### U A #### [facility] [address] [address] [address] Karen Pierce MCV (RBC) [Entitic vol] 86.7 fL Normal 80.0-94.0 [facility] Comment on above: Performed By: #### U A #### [facility] [address] [address] [address] Karen Pierce MONO # 1.0 103/ul Critically high 0.3-0.8 [facility] Comment on above: Performed By: #### U A #### [facility] [address] [place] [address] Dr. Karen Pierce Monocytes/100 WBC (Bld) 8.5 % Normal 1.7-12.0 [facility] Comment on above: Performed By: #### U A #### [facility] [address] [place] [address] Dr. Kraen Pierce NEUT # 9.9 103/ul Critically high 1.4-6.5 [facility] Comment on above: Performed By: #### U A #### [facility] [address] [place] [address] Dr. Karen Pierce Neutrophils/100 WBC (Bld) 82.9 % Critically high 43.0-75.0 [facility] Comment on above: Performed By: #### U A #### [facility] [address] [place] [address] Dr. Karen Pierce Platelet mean volume (Bld) [Entitic vol] 9.7 fL Normal 9.5-13.5 [facility] Comment on above: Performed By: #### U A #### [facility] [address] [place] [address] Dr. Karen Pierce PLT 206 103/ul Normal 150-450 [facility] Comment on above: Performed By: #### U A #### [facility] [address] [address] [address] Karen Pierce RBC 4.59 106/ul Critically low 4.70-6.10 [facility] Comment on above: Performed By: #### U A #### [facility] [address] [place] [address] Dr. Karen Pierce WBC 11.9 103/ul Critically high 4.0-11.0 [facility] Comment on above: Performed By: #### U A #### [facility] [address] [place] [address] Dr. Karen Pierce LIPASEon 05-15-2022 Lipase [Catalytic activity/Vol] 340.0 U/L Normal 73.0-393.0 [facility] Comment on above: Performed By: #### U A #### [facility] [address] [place] [address] Dr. Karen Pierce PROF 14(COMP METB)on 022 Albumin [Mass/Vol] 3.1 g/dL Critically low 3.4-5.0 [facility] Comment on above: Performed By: #### U A #### [facility] [address] [place] [address] Dr. Karen Pierce Albumin/Globulin [Mass ratio] 0.7 {ratio} Normal [facility] Comment on above: Performed By: #### U A #### [facility] [address] [place] [address] Dr. Karen Pierce ALP [Catalytic activity/Vol] 105 U/L Normal 46-116 [facility] Comment on above: Performed By: #### U A #### [facility] [address] [place] [address] Dr. Karen Pierce ALT [Catalytic activity/Vol] 49 U/L Normal 16-63 [facility] Comment on above: Performed By: #### U A #### [facility] [address] [place] [address] Dr. Karen Pierce Anion gap [Moles/Vol] 18.4 mmol/L Normal [facility] Comment on above: Performed By: #### U A #### [facility] [address] [address] [address] Karen Pierce AST [Catalytic activity/Vol] 20 U/L Normal 15-37 [facility] Comment on above: Performed By: #### U A #### [facility] [address] [address] [address] Karen Pierce Bilirubin [Mass/Vol] 0.3 mg/dL Normal 0.2-1.0 [facility] Comment on above: Performed By: #### U A #### [facility] [address] [address] [address] Karen iPerce Calcium [Mass/Vol] 9.1 mg/dL Normal 8.5-10.1 [facility] Comment on above: Performed By: #### U A #### [facility] [address] [address] [address] Karen Pierce Chloride [Moles/Vol] 103 mmol/L Normal 98-107 [facility] Comment on above: Performed By: #### U A #### [facility] [address] [address] [address] Karen Pierce CO2 [Moles/Vol] 20.1 mmol/L Critically low 21.0-32.0 [facility] Comment on above: Performed By: #### U A #### [facility] [address] [place] [address] Dr. Karen Pierce Creatinine [Mass/Vol] 9.58 mg/dL Critically high 0.70-1.30 [facility] Comment on above: Performed By: #### U A #### [facility] [address] [place] [address] Dr. Karen Pierce EGFR-AF NIGERIAN 6 mL/min/1.73m2 Critically low >=60 [facility] Comment on above: Performed By: #### U A #### [facility] [address] [address] [address] Karen Pierce EGFR-NON AF NIGERIAN 5 mL/min/1.73m2 Critically low >=60 [facility] Comment on above: Performed By: #### U A #### [facility] [address] [address] [address] Karen Pierce Globulin (S) [Mass/Vol] 4.6 g/dL Normal [facility] Comment on above: Performed By: #### U A #### [facility] [address] [address] [address] Karen Pierce Glucose [Mass/Vol] 114 mg/dL Critically high 74-106 [facility] Comment on above: Performed By: #### U A #### [facility] [address] [address] [address] Karen Pierce Potassium [Moles/Vol] 5.5 mmol/L Critically high 3.5-5.1 [facility] Comment on above: Performed By: #### U A #### [facility] [address] [place] [address] Dr. Karen Pierce Protein [Mass/Vol] 7.7 g/dL Normal 6.4-8.2 [facility] Comment on above: Performed By: #### U A #### [facility] [address] [place] [address] Dr. Karen Pierce Sodium [Moles/Vol] 136 mmol/L Normal 136-145 [facility] Comment on above: Performed By: #### U A #### [facility] [address] [place] [address] Dr. Karen Pierce Urea nitrogen [Mass/Vol] 134.0 mg/dL Critically high 7.0-18.0 [facility] Comment on above: Performed By: #### U A #### [facility] [address] [place] [address] Dr. Karen Pierce Urea nitrogen/Creatinine [Mass ratio] 14.0 mg/mg Normal [facility] Comment on above: Performed By: #### U A #### [facility] [address] [place] [address] Dr. Karen Pierce PROF CHEM 8 (BAS METB)on Anion gap [Moles/Vol] 12.6 mmol/L Normal [facility] Comment on above: Performed By: #### B MP #### [facility] [address] [address] [address] Karen Pierce Calcium [Mass/Vol] 8.7 mg/dL Normal 8.5-10.1 [facility] Comment on above: Performed By: #### B MP #### [facility] [address] [place] [address] Dr. Karen Pierce Chloride [Moles/Vol] 103 mmol/L Normal 98-107 [facility] Comment on above: Performed By: #### B MP #### [facility] [address] [address] [address] Karen Pierce CO2 [Moles/Vol] 27.3 mmol/L Normal 21.0-32.0 [facility] Comment on above: Performed By: #### B MP #### [facility] [address] [place] [address] Dr. Karen Pierce Creatinine [Mass/Vol] 1.26 mg/dL Normal 0.70-1.30 [facility] Comment on above: Performed By: #### B MP #### [facility] [address] [place] [address] Dr. Karen Pierce EGFR-AF NIGERIAN >60 Normal >=60 [facility] Comment on above: Performed By: #### B MP #### [facility] [address] [place] [address] Dr. Karen Pierce EGFR-NON AF NIGERIAN 55 mL/min/1.73m2 Critically low >=60 [facility] Comment on above: Performed By: #### B MP #### [facility] [address] [address] [address] Karen Pierce Glucose [Mass/Vol] 111 mg/dL Critically high 74-106 [facility] Comment on above: Performed By: #### B MP #### [facility] [address] [place] [address] Dr. Karen Pierce Potassium [Moles/Vol] 3.9 mmol/L Normal 3.5-5.1 [facility] Comment on above: Performed By: #### B MP #### [facility] [address] [place] [address] Dr. Karen Pierce Sodium [Moles/Vol] 139 mmol/L Normal 136-145 [facility] Comment on above: Performed By: #### B ROBYN #### [facility] [address] [address] [address] Karen Pierce Urea nitrogen [Mass/Vol] 21.0 mg/dL Critically high 7.0-18.0 [facility] Comment on above: Performed By: #### B ROBYN #### [facility] [address] [place], [place] [address] Dr. Karen Pierce Urea nitrogen/Creatinine [Mass ratio] 16.7 mg/mg Normal [facility] Comment on above: Performed By: #### B ROBYN #### [facility] [address] [address] [address] Karen Pierce [facility] 05-11-2021 Albumin [Mass/Vol] 4.5 g/dL Normal 3.6-5.1 [facility] [employer] Comment on above: Performed By: #### C ROBYN LIPElvie #### [facility] [address], [place] [id number] Albumin/Globulin [Mass ratio] 2.0 {ratio} Normal 1.0-2.5 [facility] Comment on above: Performed By: #### C ROBYN LIPElvie #### [facility] [address], [place] [id number] ALP [Catalytic activity/Vol] 97 U/L Normal 40-129 [facility] Comment on above: Performed By: #### C ROBYN LIPD #### [facility] [address], [place] [id number] ALT [Catalytic activity/Vol] 18 U/L Normal 9-46 [facility] Comment on above: Result Comment: 04/25 Female reference range changed. Performed By: #### C ROBYN LIPD #### [facility] [address], [place] [id number] Anion gap [Moles/Vol] 17 mmol/L [facility] 12-20 [facility] Comment on above: Result Comment: Effe ctive 05/31/2019 reference range changed. Performed By: #### C ROBYN LIPD #### [facility] [address], [place] [id number] AST [Catalytic activity/Vol] 15 U/L Normal 10-40 [facility] Comment on above: Performed By: #### C ROBYN LIPElvie #### [facility] [address], [place] [id number] Bilirubin [Mass/Vol] 0.55 mg/dL Normal 0.30-1.20 [facility] Comment on above: Performed By: #### C ROBYN LIPElvie #### [facility] [address], [place] [id number] BUN/CREA 17 Ratio Normal 6-22 [facility] Comment on above: Performed By: #### C ROBYN LIPElvie #### [facility] [address] [place], [place] [id number] Calcium [Mass/Vol] 9.8 mg/dL Normal 8.6-10.2 [facility] Comment on above: Performed By: #### C ROBYN LIPElvie #### [facility] [address], [place] [id number] Chloride [Moles/Vol] 106 mmol/L Normal 98-107 [facility] Comment on above: Performed By: #### C ROBYN LIPElvie #### [facility] [address] [place], [place] [id number] CO2 [Moles/Vol] 23 mmol/L Normal 20-31 [facility] Comment on above: Performed By: #### C ROBYN LIPElvie #### [facility] [address] [place], [place] [id number] Creatinine [Mass/Vol] 1.2 mg/dL Normal 0.7-1.4 [facility] Comment on above: Performed By: #### C ROBYN LIPD #### [facility] [address], [place] [id number] eGFRAA 73 mL/min/1.73m2 Normal >60 [facility] Comment on above: Performed By: #### C ROBYN LIPD #### [facility] [address] [place], [place] [id number] eGFRNAA 60 mL/min/1.73m2 Low >60 [employer] Comment on above: Performed By: #### C ROBYN, LIPD #### [facility] [address], [place] [id number] Globulin (S) [Mass/Vol] 2.3 g/dL Normal 1.9-3.7 N [facility] Comment on above: Performed By: #### C MP, LIPD #### [facility] [address], [place] [id number] Glucose [Mass/Vol] 105 mg/dL High 65-99 [facility] [employer] Comment on above: Result Comment: For FASTING Glucose --- ADA reference ranges: Normal 65-99 mg/dl Prediabetes 100-125 Diabetes >/= 126 Performed By: #### C ROBYN, LIPD #### [facility] [address] [place], [place] [id number] Potassium [Moles/Vol] 4.1 mmol/L Normal 3.5-5.5 [facility] Comment on above: Performed By: #### C ROBYN, LIPD #### [facility] [address], [place] [id number] Protein [Mass/Vol] 6.8 g/dL Normal 6.1-8.1 [facility] [employer] Comment on above: Performed By: #### C ROBYN, LIPD #### [facility] [address], [place] [id number] Sodium [Moles/Vol] 142 mmol/L Normal 135-146 [facility] [employer] Comment on above: Performed By: #### C ROBYN, LIPD #### [facility] [address], [place] [id number] Urea nitrogen [Mass/Vol] 20 mg/dL Normal 7-25 [facility] [employer] Comment on above: Performed By: #### C ROBYN, LIPD #### [facility] [address], [place] [id number] Lipid Panelon 05-11-2021 Cholesterol [Mass/Vol] 109 mg/dL Low 125-200 [facility] Comment on above: Result Comment: Low risk < 200mg/dL Borderline risk 201-239 mg/dl High risk > or equal to 240 Performed By: #### C ROBYN, LIPD #### [facility] [address], [place] [id number] Cholesterol in HDL [Mass/Vol] 30 mg/dL Low >40 [facility] [employer] Comment on above: Result Comment: High Cardiovascular Risk HDL <40 mg/dL Low Cardiovascular Risk HDL > or equal to 60 mg/dl Performed By: #### C MP, LIPD #### [facility] [address], [place] [id number] Cholesterol in LDL [Mass/Vol] 54 mg/dL Normal [facility] [employer] Comment on above: Result Comment: LDL ATP III CLASSIFICATION LDL less than 100 mg/dl Optimal LDL 100-129 mg/dl Near or above optimal LDL 130-159 Borderline high LDL 160-189 High LDL greater than 189 mg/dl Very High Performed By: #### C ROBYN, LIPD #### [facility] [address], [place] [id number] Cholesterol in VLDL [Mass/Vol] 25 mg/dL Normal [facility] [employer] Comment on above: Performed By: #### C ROBYN, LIPD #### [facility] [address], [place] [id number] Cholesterol.total/Sonya sterol in HDL [Mass ratio] 4 {ratio} Normal [facility] Comment on above: Performed By: #### C ROBYN, LIPD #### [facility] [address], [place] [id number] Triglyceride [Mass/Vol] 126 mg/dL Normal 30-150 [place] [employer] Comment on above: Result Comment: TRIG ATPIII CLASSIFICATIONS TRIG less than 150 mg/dl Normal TRIG 150-199 mg/dl Borderline High TRIG 200-500 mg/dl High TRIG greather than 500 mg/dl Very High Performed By: #### C MP, LIPD #### [facility] [address], [place] [id number] Vital Signs Date Time Vital Sign Value Performing Clinician Facility 04-06-2024 11:14-0500 Blood Pressure Location Katai JACOBS [facility] 04-06-2024 11:14-0500 Diastolic blood pressure 69 mm[Hg] Katia JACOBS [facility] 04-06-2024 11:14-0500 Heart rate 79 /min Katia JACOBS [facility] 04-06-2024 11:14-0500 Systolic blood pressure 107 mm[Hg] Katia JACOBS [facility] 03-18-2024 11:18-0400 Body height 188 cm Stanley Emerson MD Work Phone: [facility] 03-18-2024 11:18-0400 Body mass index (BMI) [Ratio] 28.63 kg/m2 Stanley Emerson MD Work Phone: [facility] 03-18-2024 11:18-0400 Body weight 101.15 kg Stanley Emerson MD Work Phone: [facility] 03-18-2024 11:18-0400 Heart rate 82 /min Stanley Emerson MD Work Phone: [facility] 03-18-2024 11:18-0400 SaO2% (BldA) [Mass fraction] 97 % Stanley Emerson MD Work Phone: [facility] 03-08-2024 12:45-0400 Body height 187.96 cm MD Stanley Emerson Work Phone: [facility] 03-08-2024 12:45-0400 Body mass index (BMI) [Ratio] 25.6 kg/m2 MD Stanley Emerson Work Phone: [facility] 03-08-2024 12:45-0400 Body temperature 98.3 [degF] MD Stanley Emerson Work Phone: [facility] 03-08-2024 12:45-0400 Body weight 90.43 kg MD Stanley Emerson Work Phone: [facility] 03-08-2024 12:45-0400 Diastolic blood pressure 69 mm[Hg] MD Stanley Emerson Work Phone: [facility] 03-08-2024 12:45-0400 Heart rate 92 /min MD Stanley Emerson Work Phone: [facility] 03-08-2024 12:45-0400 SaO2% (BldA) [Mass fraction] 99 % MD Stanley Emerson Work Phone: [facility] 03-08-2024 12:45-0400 Systolic blood pressure 103 mm[Hg] MD Stanley Emerson Work Phone: [facility] 02-24-2024 15:19-0400 Body height 188 cm [facility] 02-24-2024 15:19-0400 Body mass index (BMI) [Ratio] 26.32 kg/m2 [facility] 02-24-2024 15:19-0400 Body weight 92.99 kg [facility] 02-24-2024 15:19-0400 Diastolic blood pressure 62 mm[Hg] [facility] 02-24-2024 15:19-0400 Heart rate 85 /min [facility] 02-24-2024 15:19-0400 Systolic blood pressure 100 mm[Hg] [facility] 02-17-2024 11:52-0400 Body height 188 cm Stanley Emerson MD Work Phone: [facility] 02-17-2024 11:52-0400 Body mass index (BMI) [Ratio] 28.63 kg/m2 Stanley Emerson MD Work Phone: [facility] 02-17-2024 11:52-0400 Body weight 101.15 kg Stanley Emerson MD Work Phone: [facility] 02-04-2024 11:48-0400 Body height 187.96 cm MD Stanley Emerson Work Phone: [facility] 02-04-2024 11:48-0400 Body mass index (BMI) [Ratio] 28.2 kg/m2 MD Stanley Emerson Work Phone: [facility] 02-04-2024 11:48-0400 Body temperature 96.1 [degF] MD Stanley Emerson Work Phone: [facility] 02-04-2024 11:48-0400 Body weight 99.79 kg MD Stanley Emerson Work Phone: [facility] 02-04-2024 11:48-0400 Diastolic blood pressure 65 mm[Hg] MD Stanley Emerson Work Phone: [facility] 02-04-2024 11:48-0400 Heart rate 76 /min MD Stanley Emerson Work Phone: [facility] 02-04-2024 11:48-0400 Respiratory rate 18 /min MD Stanley Emerson Work Phone: [facility] 02-04-2024 11:48-0400 SaO2% (BldA) [Mass fraction] 96 % MD Stanley Emerson Work Phone: [facility] 02-04-2024 11:48-0400 Systolic blood pressure 99 mm[Hg] MD Stanley Emerson Work Phone: [facility] 01-23-2024 15:00-0400 Body height 187.96 cm MD Stanley Emerson Work Phone: [facility] 01-23-2024 11:19-0400 Diastolic blood pressure 62 mm[Hg] MD Stanley Emerson Work Phone: [facility] 01-23-2024 11:19-0400 Heart rate 64 /min MD Stanley Emerson Work Phone: [facility] 01-23-2024 11:19-0400 Systolic blood pressure 90 mm[Hg] MD Stanley Emerson Work Phone: [facility] 01-23-2024 11:13-0400 Respiratory rate 20 /min MD Stanley Emerson Work Phone: [facility] 01-23-2024 11:13-0400 SaO2% (BldA) [Mass fraction] 96 % MD Stanley Emerson Work Phone: [facility] 01-23-2024 04:44-0400 Body weight 98.6 kg MD Stanley Emerson Work Phone: [facility] 01-22-2024 23:41-0400 Body temperature 98.2 [degF] MD Stanley Emerson Work Phone: [facility] 01-19-2024 10:00-0400 Inhaled oxygen flow rate 2 L/min MD Stanley Emerson Work Phone: [facility] 01-14-2024 09:35-0400 Diastolic blood pressure 67 mm[Hg] MD Stanley Emerson Work Phone: [facility] 01-14-2024 09:35-0400 Heart rate 65 /min MD Stanley Emerson Work Phone: [facility] 01-14-2024 09:35-0400 Respiratory rate 16 /min MD Stanley Emerson Work Phone: [facility] 01-14-2024 09:35-0400 SaO2% (BldA) [Mass fraction] 97 % MD Stanley Emerson Work Phone: [facility] 01-14-2024 09:35-0400 Systolic blood pressure 109 mm[Hg] MD Stanley Emerson Work Phone: [facility] 01-14-2024 07:41-0400 Body height 187.96 cm MD Stanley Emerson Work Phone: [facility] 01-14-2024 07:41-0400 Body weight 104.32 kg MD Stanley Emerson Work Phone: [facility] 10-22-2023 10:57-0400 Body height 187.96 cm MD Stanley Emerson Work Phone: [facility] 10-22-2023 10:57-0400 Body mass index (BMI) [Ratio] 28 kg/m2 MD Stanley Emerson Work Phone: [facility] 10-22-2023 10:57-0400 Body temperature 96.8 [degF] MD Stanley Emerson Work Phone: [facility] 10-22-2023 10:57-0400 Body weight 99.1 kg MD Stanley Emerson Work Phone: [facility] 10-22-2023 10:57-0400 Diastolic blood pressure 76 mm[Hg] MD Stanley Emerson Work Phone: [facility] 10-22-2023 10:57-0400 Heart rate 71 /min MD Stanley Emerson Work Phone: [facility] 10-22-2023 10:57-0400 Respiratory rate 18 /min MD Stanley Emerson Work Phone: [facility] 10-22-2023 10:57-0400 SaO2% (BldA) [Mass fraction] 98 % MD Stanley Emerson Work Phone: [facility] 10-22-2023 10:57-0400 Systolic blood pressure 110 mm[Hg] MD Stanley Emerson Work Phone: [facility] 09-18-2023 10:47-0400 Body height 187.96 cm MD Stanley Emerson Work Phone: [facility] 09-18-2023 10:47-0400 Body mass index (BMI) [Ratio] 28.6 kg/m2 MD Stanley Emerson Work Phone: [facility] 09-18-2023 10:47-0400 Body temperature 97.8 [degF] MD Stanley Emerson Work Phone: [facility] 09-18-2023 10:47-0400 Body weight 101.15 kg MD Stanley Emerson Work Phone: [facility] 09-18-2023 10:47-0400 Diastolic blood pressure 68 mm[Hg] MD Stanley Emerson Work Phone: [facility] 09-18-2023 10:47-0400 Heart rate 64 /min MD Stanley Emerson Work Phone: [facility] 09-18-2023 10:47-0400 Respiratory rate 16 /min MD Stanley Emerson Work Phone: [facility] 09-18-2023 10:47-0400 SaO2% (BldA) [Mass fraction] 98 % MD Stanley Emerson Work Phone: [facility] 09-18-2023 10:47-0400 Systolic blood pressure 118 mm[Hg] MD Stanley Emerson Work Phone: [facility] 06-30-2023 14:17-0500 Blood Pressure Location Katia JACOBS [facility] 06-30-2023 14:17-0500 Diastolic blood pressure 77 mm[Hg] Katia JACOBS [facility] 06-30-2023 14:17-0500 Heart rate 70 /min Katia JACOBS [facility] 06-30-2023 14:17-0500 Respiratory rate 16 /min Katia JACOBS [facility] 06-30-2023 14:17-0500 Systolic blood pressure 109 mm[Hg] Katia JACOBS [facility] 04-15-2023 14:00-0500 Body height 187.96 cm Celia Griffin Other [employer] Other 04-15-2023 14:00-0500 Body mass index (BMI) [Ratio] 28.73 kg/m2 Celia Danielss Other [employer] Other 04-15-2023 14:00-0500 Body temperature 96.8 [degF] Celia Griffin Other [employer] Other 04-15-2023 14:00-0500 Body weight 101.52 kg Celia Danielss Other [employer] Other 04-15-2023 14:00-0500 Diastolic blood pressure 100 mm[Hg] Celia Danielss Other [employer] Other 04-15-2023 14:00-0500 Respiratory rate 18 /min Celia Danielss Other [employer] Other 04-15-2023 14:00-0500 SaO2% (BldA) [Mass fraction] 96 % Celia Danielss Other [employer] Other 04-15-2023 14:00-0500 Systolic blood pressure 161 mm[Hg] Celia Danielss Other [employer] Other 03-11-2023 13:38-0400 Blood Pressure Location Katia JACOBS [facility] 03-11-2023 13:38-0400 Diastolic blood pressure 100 mm[Hg] Katia JACOBS [facility] 03-11-2023 13:38-0400 Heart rate 72 /min Katia JACOBS [facility] 03-11-2023 13:38-0400 Systolic blood pressure 150 mm[Hg] Katia JACOBS [facility] 01-22-2023 09:57-0400 Body height 187.96 cm Stanley Emerson Work Phone: [facility] DO Work Phone: 01-22-2023 09:57-0400 Body mass index (BMI) [Ratio] 27.35 kg/m2 Stanley Emerson Work Phone: [facility] DO Work Phone: 01-22-2023 09:57-0400 Body surface area Derived from formula 2.23 m2 Stanley Emerson Work Phone: [facility] DO Work Phone: 01-22-2023 09:57-0400 Body weight 96.62 kg Stanley Emerson Work Phone: [facility] DO Work Phone: 01-22-2023 09:57-0400 Diastolic blood pressure 88 mm[Hg] Stanley Emerson Work Phone: [facility] DO Work Phone: 01-22-2023 09:57-0400 Heart rate 72 /min Stanley Emerson Work Phone: [facility] DO Work Phone: 01-22-2023 09:57-0400 Systolic blood pressure 126 mm[Hg] Stanley Emerson Work Phone: [facility] DO Work Phone: 08-21-2022 14:30-0400 Body height 187.96 cm Carlene Kasper Other [employer] Other 08-21-2022 14:30-0400 Body mass index (BMI) [Ratio] 26.32 kg/m2 Carlene Kasper Other [employer] Other 08-21-2022 14:30-0400 Body temperature 97.8 [degF] Carlene Kasper Other [employer] Other 08-21-2022 14:30-0400 Body weight 92.99 kg Carlene Kasper Other [employer] Other 08-21-2022 14:30-0400 Diastolic blood pressure 82 mm[Hg] Carlene Kasper Other [employer] Other 08-21-2022 14:30-0400 SaO2% (BldA) [Mass fraction] 96 % Carlene Kasper Other [employer] Other 08-21-2022 14:30-0400 Systolic blood pressure 124 mm[Hg] Carlene Kasper Other [employer] Other 07-31-2022 07:25-0500 Blood Pressure Location Katia JACOBS [facility] 07-31-2022 07:25-0500 Diastolic blood pressure 89 mm[Hg] Katia JACOBS [facility] 07-31-2022 07:25-0500 Heart rate 70 /min Katia JACOBS [facility] 07-31-2022 07:25-0500 Respiratory rate 16 /min Katia JACOBS [facility] 07-31-2022 07:25-0500 Systolic blood pressure 130 mm[Hg] Katia JACOBS [facility] 07-25-2022 09:45-0500 Body height 187.96 cm Margarito Valentine Other [employer] Other 07-25-2022 09:45-0500 Body mass index (BMI) [Ratio] 26.32 kg/m2 Margarito Valentine Other [employer] Other 07-25-2022 09:45-0500 Body temperature 96.2 [degF] Margarito Valentine Other [employer] Other 07-25-2022 09:45-0500 Body weight 92.99 kg Margarito Valentine Other [employer] Other 07-25-2022 09:45-0500 Diastolic blood pressure 60 mm[Hg] Margarito Valentine Other [employer] Other 07-25-2022 09:45-0500 SaO2% (BldA) [Mass fraction] 97 % Margarito Valentine Other [employer] Other 07-25-2022 09:45-0500 Systolic blood pressure 110 mm[Hg] Margarito Valentine Other [employer] Other 07-03-2022 07:34-0500 Body temperature 98.9 [degF] MD Stanley Emerson Work Phone: [facility] 07-03-2022 07:34-0500 Diastolic blood pressure 91 mm[Hg] MD Stanley Emerson Work Phone: [facility] 07-03-2022 07:34-0500 Heart rate 87 /min MD Stanley Emerson Work Phone: [facility] 07-03-2022 07:34-0500 Respiratory rate 18 /min MD Stanley Emerson Work Phone: [facility] 07-03-2022 07:34-0500 SaO2% (BldA) [Mass fraction] 94 % MD Stanley Emerson Work Phone: [facility] 07-03-2022 07:34-0500 Systolic blood pressure 159 mm[Hg] MD Stanley Emerson Work Phone: [facility] 07-03-2022 05:46-0500 Body weight 94 kg MD Stanley Emerson Work Phone: [facility] 07-02-2022 16:27-0500 Inhaled oxygen flow rate 6 L/min MD Stanley Emerson Work Phone: [facility] 07-02-2022 10:06-0500 Body height 185.42 cm MD Stanley Emerson Work Phone: [facility] 07-02-2022 10:06-0500 Body mass index (BMI) [Ratio] 27.3 kg/m2 MD Stanley Emerson Work Phone: [facility] 06-19-2022 10:00-0500 Body height 187.96 cm Margarito Valentine Other [employer] Other 06-19-2022 10:00-0500 Body mass index (BMI) [Ratio] 26.32 kg/m2 Margarito Valentine Other [employer] Other 06-19-2022 10:00-0500 Body temperature 97.8 [degF] Margarito Valentine Other [employer] Other 06-19-2022 10:00-0500 Body weight 92.99 kg Margarito Valentine Other [employer] Other 06-19-2022 10:00-0500 Diastolic blood pressure 68 mm[Hg] Margarito Valentine Other [employer] Other 06-19-2022 10:00-0500 SaO2% (BldA) [Mass fraction] 95 % Margarito Valentine Other [employer] Other 06-19-2022 10:00-0500 Systolic blood pressure 108 mm[Hg] Margarito Valentine Other [employer] Other 06-12-2022 13:07-0500 Body height 187.96 cm MD Stanley Emerson Work Phone: [facility] 06-12-2022 13:07-0500 Body weight 93.44 kg MD Stanley Emerson Work Phone: [facility] 06-06-2022 12:00-0500 Body height 187.96 cm Margarito Valentine Other [employer] Other 06-06-2022 12:00-0500 Body mass index (BMI) [Ratio] 26.32 kg/m2 Margarito Valentine Other [employer] Other 06-06-2022 12:00-0500 Body temperature 97.2 [degF] Margarito Valentine Other [employer] Other 06-06-2022 12:00-0500 Body weight 92.99 kg Margarito Valentine Other [employer] Other 06-06-2022 12:00-0500 Diastolic blood pressure 70 mm[Hg] Margarito Topetesarina Other [employer] Other 06-06-2022 12:00-0500 SaO2% (BldA) [Mass fraction] 98 % Margarito Topetesarina Other [employer] Other 06-06-2022 12:00-0500 Systolic blood pressure 108 mm[Hg] Margarito Tpoetesarina Other [employer] Other 06-04-2022 12:00-0500 Body height 187.96 cm Celia Tipser Other [employer] Other 06-04-2022 12:00-0500 Body mass index (BMI) [Ratio] 26.42 kg/m2 Celia Tipser Other [employer] Other 06-04-2022 12:00-0500 Body temperature 96.6 [degF] Celia Tipser Other [employer] Other 06-04-2022 12:00-0500 Body weight 93.35 kg Celia Tipser Other [employer] Other 06-04-2022 12:00-0500 Diastolic blood pressure 70 mm[Hg] Azcelestino PinchPoints Other [employer] Other 06-04-2022 12:00-0500 Respiratory rate 20 /min Celia PinchPoints Other [employer] Other 06-04-2022 12:00-0500 SaO2% (BldA) [Mass fraction] 98 % Celia Griffin Other [facility] [employer] Other 06-04-2022 12:00-0500 Systolic blood pressure 100 mm[Hg] Celia Griffin Other [facility] [employer] Other 06-03-2022 15:38-0500 Body height 187.96 cm Stanley Singhjose cruz Work Phone: [facility] DO Work Phone: 06-03-2022 15:38-0500 Body mass index (BMI) [Ratio] 26.45 kg/m2 Stanley Emerson Work Phone: [facility] DO Work Phone: 06-03-2022 15:38-0500 Body surface area Derived from formula 2.2 m2 Stanley Emerson Work Phone: [facility] DO Work Phone: 06-03-2022 15:38-0500 Body weight 93.44 kg Stanley Emerson Work Phone: [facility] DO Work Phone: 06-03-2022 15:38-0500 Diastolic blood pressure 78 mm[Hg] Stanley Emerson Work Phone: [facility] DO Work Phone: 06-03-2022 15:38-0500 Heart rate 71 /min Stanley Emerson Work Phone: [facility] DO Work Phone: 06-03-2022 15:38-0500 Systolic blood pressure 106 mm[Hg] Stanley Emerson Work Phone: [facility] DO Work Phone: 05-22-2022 11:53-0500 Body temperature 98.8 [degF] MD Stanley Emerson Work Phone: [facility] 05-22-2022 11:53-0500 Diastolic blood pressure 72 mm[Hg] MD Stanley Emerson Work Phone: [facility] 05-22-2022 11:53-0500 Heart rate 78 /min MD Stanley Emerson Work Phone: [facility] 05-22-2022 11:53-0500 Respiratory rate 16 /min MD Stanley Emerson Work Phone: [facility] 05-22-2022 11:53-0500 SaO2% (BldA) [Mass fraction] 97 % MD Stanley Emerson Work Phone: [facility] 05-22-2022 11:53-0500 Systolic blood pressure 108 mm[Hg] MD Stanley Emerson Work Phone: [facility] 05-22-2022 06:02-0500 Body weight 88.8 kg MD Stanley Emerson Work Phone: [facility] 05-21-2022 11:48-0500 63 1 Stanley Emerson Work Phone: [facility] DO Work Phone: Comment on above: [id number] 05-17-2022 12:08-0500 Body height 187.96 cm MD Stanley Emerson Work Phone: [facility] Encounters Encounter Date Encounter Type Care Provider Facility Start: 04-06-2024 End: 04-06-2024 ambulatory Katia JACOBS [place] Start: 04-06-2024 End: 04-06-2024 Lab Drop off Katia JACOBS [facility] Start: 04-06-2024 End: 04-06-2024 ambulatory Katia JACOBS Facility:[facility] Start: 04-06-2024 End: 04-06-2024 Patient encounter procedure Katia JACOBS [facility] Start: 04-01-2024 End: 04-01-2024 Telephone [...] encounter procedure MD Stanley Emerson Work Phone: [facility] Work Phone: Start: 03-08-2024 End: 03-08-2024 ambulatory MD Stanley Emerson Work Phone: [place] Work Phone: Start: 03-04-2024 End: 03-04-2024 Clinisync Result Encounter Generic External Data Provider [facility] External Department Unsolicited Start: 03-04-2024 End: 03-04-2024 Clinisync Result Encounter Generic External Data Provider [facility] External Department Unsolicited Start: 03-02-2024 End: 03-02-2024 ambulatory Blanca X Orzech Facility:[facility] Start: 03-02-2024 End: 03-02-2024 Patient encounter procedure Blanca X Orzech [facility] [place] Start: 02-24-2024 End: 02-24-2024 Professional / ancillary services management [facility] Comment on above: Paroxysmal atrial fi brillation (Multi) Start: 02-24-2024 End: 02-24-2024 ambulatory [facility] Start: 02-17-2024 End: 02-17-2024 ambulatory STANLEY EMERSON Not Available Start: 02-17-2024 End: 02-17-2024 Office outpatient visit 15 minutes Stanley Emerson MD Work Phone: [facility] Comment on above: Pneumonia of left lo wer lobe due to infectious organism (Primary Dx); Simple chronic bronchitis (CMS/HCC) Start: 02-10-2024 End: 02-10-2024 ambulatory [facility] Start: 02-04-2024 End: 02-04-2024 ambulatory MD Stanley Emerson Work Phone: [place] Work Phone: Start: 02-04-2024 End: 02-04-2024 Patient encounter procedure MD Stanley Emerson Work Phone: [facility] Work Phone: Start: 01-29-2024 End: 01-29-2024 ambulatory STANLEY EMERSON Not Available Start: 01-23-2024 Non-patient / Non-visit MD Kai Emerson Work Phone: [facility] Work Phone: Start: 01-20-2024 ambulatory Blanca X Orzech Facilit y:UZMA Velasquez Start: 01-16-2024 Non-patient / Non-visit MD Kai Emerson Work Phone: [facility] Work Phone: Start: 01-16-2024 Non-patient / Non-visit MD Kai Emerson Work Phone: [facility] Pulmonary Disease Work Phone: Start: 01-16-2024 End: 01-23-2024 Evaluation and management of inpatient MD Stanley Emerson Work Phone: [facility] Work Phone: Start: 01-14-2024 Non-patient / Non-visit MD Kai Emerson Work Phone: [facility] Gastroenterology Work Phone: Start: 01-14-2024 End: 01-14-2024 Admission to same day surgery center MD Stanley Emerson Work Phone: [facility]-Digestive Health Work Phone: Start: 01-14-2024 End: 01-14-2024 ambulatory MD Stanley Emerson Work Phone: [facility] Work Phone: Start: 12-26-2023 End: 12-26-2023 Patient encounter procedure MD Stanley Emerson Work Phone: [facility]-Lab [facility] Start: 12-26-2023 End: 12-26-2023 ambulatory MD Stanley Emerson Work Phone: [facility] Work Phone: Start: 12-25-2023 End: 12-25-2023 ambulatory Fabi Gomez Facility:[facility] Start: 12-25-2023 End: 12-25-2023 Patient encounter procedure Fabi Gomez [facility] Start: 11-19-2023 End: 11-19-2023 ambulatory STANLEY EMERSON Not Available Start: 11-04-2023 End: 11-04-2023 ambulatory Blanca X Orzech [facility] Start: 11-04-2023 End: 11-04-2023 Patient encounter procedure Blanca X Orzech [facility] Start: 10-22-2023 End: 10-22-2023 ambulatory MD Stanley Emerson Work Phone: [place] Work Phone: Start: 10-22-2023 End: 10-22-2023 Patient encounter procedure MD Stanley Emerson Work Phone: [facility] Nephrology Work Phone: Start: 10-16-2023 Non-patient / Non-visit MD Kai Emerson Work Phone: [facility] Work Phone: Start: 10-07-2023 End: 10-07-2023 ambulatory Katia JACOBS Facility:[facility] Start: 10-07-2023 End: 10-07-2023 Patient encounter procedure Katia JACOBS [facility] Start: 10-06-2023 End: 10-06-2023 ambulatory STANLEY EMERSON Not Available Start: 10-03-2023 End: 10-03-2023 Lab Drop off Katia JACOBS [facility] Start: 10-03-2023 End: 10-03-2023 ambulatory Katia JACOBS [facility] Start: 10-03-2023 End: 10-03-2023 Patient encounter procedure Katia JACOBS [facility] Start: 09-30-2023 Non-patient / Non-visit MD Kai Emerson Work Phone: [facility] Work Phone: Start: 09-18-2023 Bradyarrhythmia MD Stanley billingsley Work Phone: [facility] Start: 09-18-2023 End: 09-18-2023 ambulatory MD Stanley Emerson Work Phone: [place] Work Phone: Start: 09-18-2023 End: 09-18-2023 Patient encounter procedure MD Stanley Emerson Work Phone: [facility] Vascular Surgery Work Phone: Start: 09-11-2023 End: 09-11-2023 ambulatory Katia JACOBS Facility:[facility] [place] Start: 09-11-2023 End: 09-11-2023 Patient encounter procedure Katia JACOBS [facility] Start: 08-18-2023 End: 08-18-2023 Patient encounter procedure MD Stanley Emerson Work Phone: [facility]-CT Scan [facility] [place] Work Phone: Start: 08-18-2023 End: 08-18-2023 ambulatory MD Stanley Emerson Work Phone: [facility] Work Phone: Start: 08-15-2023 End: 08-15-2023 ambulatory Katia JACOBS Facility:[facility] [place] Start: 08-15-2023 End: 08-15-2023 Patient encounter procedure Katia JACOBS [facility] Start: 08-04-2023 End: 08-04-2023 ambulatory EDRENÉ J HEMEYER Not Available Start: 07-01-2023 End: 07-01-2023 ambulatory Katia Isabel JACOBS Facility:[facility] Start: 06-30-2023 End: 06-30-2023 ambulatory Katia Isabel JACOBS Facility: [facility] Start: 06-30-2023 End: 06-30-2023 Patient encounter procedure Katia Isabel ARLENE [facility] Start: 06-16-2023 End: 06-16-2023 ambulatory Katia Isabel ARLENE Facility: [place] Start: 06-16-2023 End: 06-16-2023 Patient encounter procedure Katia R JACOBS [facility] Start: 06-10-2023 End: 06-10-2023 ambulatory Katia R JACOBS [facility] Start: 06-10-2023 End: 06-10-2023 Patient encounter procedure Katia JACOBS [facility] Start: 05-28-2023 End: 05-28-2023 ambulatory EDRENÉ J HEMEYER Not Available Start: 05-12-2023 End: 05-12-2023 ambulatory EDWARD J HEMEYER Not Available Start: 05-06-2023 End: 05-06-2023 ambulatory Azcelestino Bakcatherines Other [employer] Other Start: 05-06-2023 Telephone encounter Azcelestino Bakhous [facility] Start: 04-16-2023 End: 04-16-2023 ambulatory Aziz Bakhous Other [employer] Other Start: 04-16-2023 Telephone encounter Azcelestino Bakhous [facility] Start: 04-15-2023 End: 04-15-2023 ambulatory Celia Griffin Other [facility] [employer] Other Start: 04-15-2023 Office outpatient vi sit 25 minutes Celia Griffin [facility] Nephrology Start: 04-08-2023 End: 04-08-2023 ambulatory MD Stanley Emerson Work Phone: [facility] Work Phone: Start: 04-08-2023 End: 04-08-2023 Patient encounter procedure MD Stanley Emerson Work Phone: [facility]Lab [facility] Start: 03-11-2023 End: 03-11-2023 Lab Drop off Katia JACOBS [facility] Start: 03-11-2023 End: 03-11-2023 Patient encounter procedure Katia JACOBS [facility] Start: 01-22-2023 Office outpatient vi sit 25 minutes Stanley Emerson Work Phone: [place] [address] DO Work Phone: Start: 01-22-[address] Teo Al Facility: Start: 12-25-2022 End: 12-25-2022 Patient encounter procedure Katia JACOBS [facility] Start: 12-10-2022 End: 12-10-2022 Lab Drop off Katia JACOBS [facility] Start: 12-10-2022 End: 12-10-2022 Patient encounter procedure Katia JACOBS [facility] Start: 10-04-2022 End: 10-04-2022 Patient encounter procedure Katia JACOBS [facility] Start: 09-18-2022 End: 09-18-2022 Patient encounter procedure Katia JACOBS [facility] Start: 09-15-2022 End: 09-15-[address] STANLEY EMERSON . Facility:[facility] Start: 09-12-2022 End: 09-12-[address] STANLEY EMERSON . Facility:[facility] Start: 09-08-2022 Encounter for preprocedural laboratory examination CELIA GRIFFIN [facility] Start: 09-04-2022 End: 09-05-[address] STANLEY EMERSON . Facility:[facility] Start: 09-04-2022 Encounter for preprocedural cardiovascular examination DR KATIA JACOBS . [facility] Start: 09-02-2022 End: 09-03-[address] STANLEY EMERSON . Facility:[facility] Start: 09-02-2022 End: 09-03-2022 Encounter for preprocedural laboratory examination DR STANLEY EMERSON . Facility:[facility] Start: 09-02-2022 End: 09-03-[address] STANLEY EMERSON . Facility:[facility] Start: 09-02-2022 End: 09-03-2022 Encounter for preprocedural cardiovascular examination DR STANLEY EMERSON . Facility:[facility] Start: 08-21-2022 End: 08-21-2022 ambulatory Carlene Kasper Other [employer] Other Start: 08-21-2022 Follow-up encounter Carlene Dickerson [facility] Start: 08-16-2022 End: 08-16-2022 ambulatory MD Stanley Emerson Work Phone: [facility] Work Phone: Start: 08-16-2022 End: 08-16-2022 Patient encounter procedure MD Stanley Emerson Work Phone: [facility]-CT Scan [facility] [place] Work Phone: Start: 07-31-2022 End: 07-31-2022 Patient encounter procedure Katia JACOBS [facility] Start: 07-25-2022 End: 07-25-2022 ambulatory Margarito Valentine Other [employer] Other Start: 07-25-2022 Postop follow up vis it related to original px Margarito Valentine [facility] Start: 07-24-2022 End: 07-24-2022 ambulatory MD Stanley Emerson Work Phone: [facility] Work Phone: Start: 07-24-2022 End: 07-24-2022 Patient encounter procedure MD Stanley Emerson Work Phone: [facility]-MRI [facility] [place] Work Phone: Start: 07-02-2022 End: 07-03-2022 Evaluation and management of inpatient MD Stanley Emerson Work Phone: [facility] Work Phone: Start: 06-21-2022 End: 06-21-2022 Patient encounter procedure MD Stanley Emerson Work Phone: [facility] Work Phone: Start: 06-19-2022 End: 06-19-2022 ambulatory Margarito Valentine Other [employer] Other Start: 06-19-2022 Office outpatient vi sit 25 minutes Margarito Valentine [facility] Start: 06-12-2022 End: 06-12-2022 ambulatory MD Stanley Emerson Work Phone: [facility] Work Phone: Start: 06-12-2022 End: 06-12-2022 Patient encounter procedure MD Stanley Emerson Work Phone: [facility]-CT Scan [facility] [place] Work Phone: Start: 06-11-2022 End: 06-11-2022 Patient encounter procedure HEATHER OMALLEY [facility] Start: 06-06-2022 End: 06-06-2022 ambulatory Margarito Valentine Other [facility] [employer] Other Start: 06-06-2022 Office outpatient vi sit 25 minutes Margarito Valentine [facility] Start: 06-04-2022 End: 06-04-2022 ambulatory Celia Griffin Other [place] [employer] Other Start: 06-04-2022 Office outpatient vi sit 25 minutes Celia Griffin [facility] Tom Start: 06-03-2022 Office outpatient vi sit 25 minutes Stanley Emerson Work Phone: [facility] 250 DO Work Phone: Start: 06-03-[address] Stanley Emerson Facility:[id number] Start: 05-21-[address] Stanley Emerson Facility:[id number] Start: 05-20-[address] Stanley Emerson Facility:[id number] Start: 05-19-[address] Teo Al Facility:[id number] Start: 05-18-[address] Teo Al Facility:[id number] Start: 05-17-[address] Stanley Emerson Facility:[id number] Start: 05-17-2022 Bradyarrhythmia MD Stanley billingsley Work Phone: [facility] Start: 05-17-[address] Teo Al Facility:[id number] Start: 05-16-2022 End: 05-22-2022 Encounter for preprocedural cardiovascular examination MD Stanley Emerson Work Phone: [facility] Start: 05-16-2022 End: 05-22-2022 Evaluation and management of inpatient MD Stanley Emerson Work Phone: [facility] Work Phone: Start: 05-16-2022 End: 05-16-[address] STANLEY EMERSON . Facility:[facility] Start: 05-15-2022 End: 05-16-[address] STANLEY EMERSON . Facility:[facility] Start: 01-04-2022 End: 01-04-[address] STANLEY EMERSON . Facility: Patient encounter status Stanley Emerson Work Phone: [facility] DO Work Phone: End: 01-22-2023 Patient encounter status Stanley Emerson Work Phone: [facility] 250 DO Work Phone: Procedures Date Procedure Procedure Detail Performing Clinician Start: 04-06-2024 Flexible cystoscopy [facility] desi JACOBS Start: 03-23-2024 ALL HEMOGLOBIN Generic [...] Activity Detail Author Start: 01-15-2025 Echocardiography Echocardiogram [facility] Start: 10-05-2024 ambulatory Ambulatory Facility:[facility] [place] Start: 05-06-2024 ambulatory Ambulatory Facility:[facility] [place] Start: 05-06-2024 End: 05-06-2024 Patient encounter procedure [facility] 100 Start: 04-12-2024 End: 04-12-2024 Patient encounter procedure 04/12/2024 3:20 PM EST Office Visit [facility] [address] [facility] [address] [place] [address] Teo Al MD [address] 2, [facility] [address] [place] [address] [facility] Start: 03-18-2024 End: 03-18-2024 Patient encounter procedure 03/18/2024 11:30 AM EDT Office Visit [facility] [address] [facility] [address] [place] [address] Stanley Emerson MD [address] [facility] [place] [address] (Fax) Pneumonia of right lower lobe due to infectious organism [facility] 100 Comment on above: Pneumonia of right l ower lobe due to infectious organism Start: 03-08-2024 Plain chest X-ray XR chest 2V* [facility] Start: 01-25-2024 COVID-19 Vaccine ( season) COVID-19 Vaccine ( season) [facility] Start: 01-25-2024 Influenza vaccination Influenza Vacc ine (#1) [facility] Start: 01-23-2024 [facility] Start: 01-23-2024 Bacteria identified in Urine by Culture [facility] Start: 01-22-2024 Referral to clinical blind eyeletter [facility] Start: 01-22-2024 Referral to rehabili tation physician [facility] Start: 01-21-2024 FUV, Provider: Teo Al, Status: Pen, Time: 11:50 AM FUV, Provider: Teo Al, Status: Pen, Time: 11:50 AM [place] [address] DO Work Phone: Start: 01-16-2024 Dilation of Coronary Artery, One Artery with Drug-eluting Intraluminal Device, Percutaneous Approach Dilation of Coronary Artery, One Artery with Drug-eluting Intraluminal Device, Percutaneous Approach [facility] Start: 01-16-2024 Fluoroscopy of Left Heart using Low Osmolar Contrast Fluoroscopy of Left Heart using Low Osmolar Contrast [facility] Start: 01-16-2024 Fluoroscopy of Multi ple Coronary Arteries using Low Osmolar Contrast Fluoroscopy of Multiple Coronary Arteries using Low Osmolar Contrast [facility] Start: 01-16-2024 Measurement of Cardi ac Sampling and Pressure, Left Heart, Percutaneous Approach Measurement of Cardiac Sampling and Pressure, Left Heart, Percutaneous Approach [facility] Start: 01-16-2024 Hospital admission [facility] Start: 01-16-2024 Referral to cardiac rehabilitation program [facility] Start: 01-16-2024 [facility] Start: 01-14-2024 [facility] Start: 04-08-2023 Bacteria identified in Urine by Culture [facility] Start: 12-10-2022 FUV, Provider: Teo Al, Status: Pen, Time: 10:10 AM FUV, Provider: Teo Al, Status: Pen, Time: 10:10 AM [facility] Mosher DO Work Phone: Start: 07-24-2022 MR Abdomen WO and W contrast IV [facility] Start: 07-24-2022 MRI of abdomen with contrast MR abdomen wo/w con [facility] Start: 07-03-2022 [facility] Start: 07-02-2022 Fluoroscopy of Aorta and Bilateral Lower Extremity Arteries using Low Osmolar Contrast Fluoroscopy of Aorta and Bilateral Lower Extremity Arteries using Low Osmolar Contrast [facility] Start: 07-02-2022 Restriction of Abdom inal Aorta with Intraluminal Device, Percutaneous Approach Restriction of Abdominal Aorta with Intraluminal Device, Percutaneous Approach [facility] Start: 05-22-2022 [facility] Start: 05-20-2022 Evaluation procedure [facility] Start: 05-19-2022 [facility] Start: 05-17-2022 End: 05-17-2022 [facility] Start: 05-16-2022 Referral to card services specialist [facility] Start: 05-16-2022 Referral to vascular surgeon [facility] Start: 05-16-2022 Hospital admission [facility] Start: 2003 RSV patient s and/or patients aged 60+ years (1 - 1-dose 60+ series) RSV patients and/or patients aged 60+ years (1 - 1-dose 60+ series) [facility] Start: 11-30-1993 Zoster Vaccines (1 of 2) Zoste r Vaccines (1 of 2) [facility] Start: 11-30-1965 DTaP/Tdap/Td Vaccine s (1 - Tdap) DTaP/Tdap/Td Vaccines (1 - Tdap) [facility] Start: 11-30-1962 Urine screening for protein CKD: Urine Protein Screening [facility] Start: 11-30-1961 Diabetes mellitus screening Diabetes Screening [facility] Start: 1943 Creatinine measurement Creatinine Le diamond [facility] Start: 1943 Lipid panel Lipid Panel [facility] Start: 1943 Medicare Annual Well ness Visit Medicare Annual Wellness Visit (AWV) [facility] Start: 1943 Potassium measurement Potassium Leve l [facility] Start: 1943 Thyroid stimulating hormone measurement TSH Level [facility] ECG 12 Lead ECG 12 Lead ECG Routine Paroxysmal atrial fibrillation (Multi) 02/24/2024 2:45 PM EDT [facility] Service Area Work Phone: Patient Education [facility] Work Phone: Patient referral [facility] Work Phone: Renal function 1999 panel - Serum or Plasma [facility] Renal function 1999 panel - Serum or Plasma [facility] US Thoracic and abdo arturo aorta [facility] XR Chest 2 Views [facility] Immunizations Immunization Date Immunization Notes Care Provider Markus brooke 03-19-2024 influenza virus vacc ine, unspecified formulation Katia JACOBS [facility] 03-19-2024 influenza, seasonal, injectable Generic Provider [facility] 03-19-2024 Pfizer Purple Cap SARS-CoV-2 Vaccination Generic Provider [facility] 05-28-2023 Pneumococcal Conjuga te PCV 20 Stanley Emerson MD Work Phone: [facility] 03-26-2023 Influenza, Seasonal, Quadrivalent, Adjuvanted [facility] Work Phone: 03-26-2023 influenza virus vacc ine, unspecified formulation [facility] 02-16-2023 SARS-COV-2 (COVID-19 ) vaccine, mRNA, spike protein, LNP, PF, valente-sucrose, 30 mcg/0.3 mL Stanley Emerson MD Work Phone: [facility] 05-20-2022 influenza, high dose seasonal, preservative-free [facility] Work Phone: 03-29-2022 Moderna Bivalent Connell ster Vaccination Stanley Emerson MD Work Phone: [facility] 03-29-2022 Pfizer COVID-19 Vac Bivalent 30 MCG/0.3ML Intramuscular Suspension Stanley Emerson Work Phone: [facility] 03-16-2022 influenza virus vacc ine, unspecified formulation Katia JACOBS [facility] 03-16-2022 influenza, seasonal, injectable Stanley Emerson Work Phone: [place] [address] DO Work Phone: 03-06-2022 Fluzone High-Dose Quadrivalent 0.7 ML Intramuscular Suspension Prefilled Syringe Stanley Emerson Work Phone: [facility] 250 DO Work Phone: 03-06-2022 influenza virus vacc ine, unspecified formulation HEATHER OMALLEY [facility] 10-03-2021 Comirnaty 30 MCG/0.3 ML Intramuscular Suspension Stanley Emerson Work Phone: [facility] 250 DO Work Phone: 10-03-2021 COVID-19 mRNA, Taniya wright (Pfizer) MD Stanley Emerson Work Phone: [facility] 10-03-2021 SARS-CoV-2 mRNA (zoymmazdrup-dscb-bspmbx e) vaccine HEATHER JOSSELIN [facility] 10-03-2021 SARS-CoV-2, Unspecified Jesus Emerson MD Work Phone: [facility] 04-23-2021 pneumococcal polysaccharide vaccine, 23 valent Stanley Emerson Work Phone: [facility] 02-22-2021 influenza virus vacc ine, unspecified formulation Katia JACOBS [facility] 02-22-2021 influenza, injectabl e, quadrivalent, preservative free Stanley Emerson Work Phone: [facility] 250 DO Work Phone: 02-21-2021 Pfizer-BioNTech COVI D-19 Vacc 30 MCG/0.3ML Intramuscular Suspension Stanley Emerson Work Phone: [facility] Comment on above: Result Comment: 2022: [id number] 02-14-2021 influenza, high dose seasonal, preservative-free Leanne Soriano [facility] Work Phone: 07-28-2020 Pfizer-BioNTech COVI D-19 Vacc 30 MCG/0.3ML Intramuscular Suspension Stanley Emerson Work Phone: [facility] 07-07-2020 Pfizer-BioNTech COVI D-19 Vacc 30 MCG/0.3ML Intramuscular Suspension Stanley Emerson Work Phone: [facility] 02-22-2020 influenza virus vacc ine, unspecified formulation HEATHERMERCEDES OMALLEY [facility] 02-22-2020 influenza, injectabl e, quadrivalent, preservative free Stanley Emerson MD Work Phone: [facility] 02-22-2020 Seasonal, quadrivale nt, recombinant, injectable influenza vaccine, preservative free Stanley Emerson Work Phone: [facility] 250 DO Work Phone: Payers Date Payer Category Payer Self-pay 2022 Medicare [id number] 2015 Private Health Insurance [id number] 2010 Medicare [id number] 1959 Medicare [id number] 1959 Private Health Insurance [id number] 1943 Unknown [id number] 1943 Unknown [id number] 2.840.1.707025.3.579.2.593 1943 Unknown [id number] 2.840.1.970889.3.579.2.593 1943 Unknown [id number] 2.840.1.342927.3.579.2.593 1943 Unknown [id number] 2.840.1.594194.3.579.2.593 1943 Unknown [id number] 2.840.1.501309.3.579.2.593 1943 Unknown [id number] 2.840.1.735983.3.579.2.593 1943 Unknown [id number] 2.16840.1.653044.3.579.2.593 1943 Unknown [id number] 2.16840.1.482531.3.579.2.356 1943 Unknown [id number] 2.16840.1.265490.3.579.2.356 1943 Unknown [id number] 2.840.1.748468.3.579.2.356 1943 Unknown [id number] 2.16.840.1.221412.3.579.2.356 -194 Unknown [id number] 2.16.840.1.889331.3.579.2.356 -194 Unknown [id number] 2.16.840.1.137292.3.579.2.356 194 Unknown [id number] 2.16.840.1.049901.3.579.2.356 -194 Unknown [id number] 2.16.840.1.058153.3.579.2.356 -194 Unknown [id number] 2.16.840.1.364903.3.579.2.125 9 -194 Unknown [id number] 2.16.840.1.507763.3.579.2.125 9 -194 Unknown [id number] 2.840.1.389868.3.579.2.125 9 -194 Unknown [id number] 2.16.840.1.771900.3.579.2.125 9 -194 Unknown [id number] 2.16.840.1.051732.3.579.2.125 9 -194 Unknown [id number] 2.16.840.1.166143.3.579.2.125 9 194 Unknown [id number] 2.16.840.1.998007.3.579.2.125 9 -194 Unknown [id number] 2.16.840.1.327784.3.579.2.125 9 -194 Unknown [id number] 2.16.840.1.284665.3.579.2.727 1943 Unknown [id number] 2.16.840.1.577505.3.579.2.727 194 Unknown [id number] 2.16.840.1.802710.3.579.2.727 1944 Unknown [id number] 2.16.840.1.930685.3.579.2.727 1943 Unknown [id number] 2.16.840.1.310640.3.579.2.727 1943 Unknown [id number] 2.16.840.1.642247.3.579.2.727 1943 Unknown [id number] 2.16.840.1.999446.3.579.2.727 1943 Unknown [id number] 2.16.840.1.250532.3.579.2.727 1943 Unknown [id number] 2.16.840.1.797939.3.579.2.727 1943 Unknown [id number] 2.16.840.1.210780.3.579.2.727 1943 Unknown [id number] 2.16.840.1.988078.3.579.2.124 4 194 Unknown [id number] 2.16.840.1.281131.3.579.2.124 4 1943 Unknown [id number] 2.16.840.1.468317.3.579.2.727 1943 Unknown [id number] 2.16.840.1.479356.3.579.2.727 1943 Unknown [id number] 2.16.840.1.523269.3.579.2.727 1943 Unknown [id number] 2.16.840.1.642394.3.579.2.727 1943 Unknown [id number] 2.16.840.1.607085.3.579.2.727 194 Unknown [id number] 2.16.840.1.104005.3.579.2.727 1943 Unknown [id number] 2.16.840.1.237621.3.579.2.727 Medicare Medicare Nonpatient [id number] Unknown Unknown O [id number] Unknown [id number] 2.16.840.1.927558.3.579.2.531 Unknown [id number] 2.16.840.1.439169.3.579.2.531 Unknown [id number] 2.16.840.1.217083.3.579.2.531 Unknown [id number] 2.16.840.1.821255.3.579.2.531 Unknown [id number] 2.16.840.1.651055.3.579.2.531 Social History Date Type Detail Facility Start: 12-31-2023 End: 02-10-2024 Daily caffeine consumption Daily caffeine consumption [facility] 250 DO Work Phone: Comment on above: 3-4 cups coffee kellen y; 05/17/23 quit; 1/2 dozen cigarettes ; Start: 06-11-2022 End: 04-06-2024 Tobacco smoking status Heavy tobacco smoker (finding) [facility] Eva Start: 12-31-2023 End: 02-10-2024 Sex Assigned At Male [facility] Start: 12-31-1965 End: 01-23-2024 Tobacco smoking status NHIS Smoker (finding) [facility] Start: 1945 Sex Assigned At Male [facility] Start: 07-02-2022 End: 01-29-2024 Tobacco smoking status NHIS Ex-smoker (finding) [facility] Tobacco smoking status Never [facility] Start: 12-31-1965 History of tobacco use Cigarette Smo [facility] Work Phone: Start: 01-29-2024 End: 02-10-2024 Tobacco use and exposure Smokeless tobacco non-user [facility] Work Phone: Start: 02-24-2024 End: 03-18-2024 Alcoholic beverage intake Lifetime non-drinker (finding) [facility] Work Phone: Start: 1945 [facility] Start: 02-14-2024 End: 02-24-2024 Exposure to SARS-CoV-2 (event) Not sure [facility] Within the last year , have [...] aortic aneurysm (AAA) Abdominal aorta endovascular stent-graft ()[id number] FDA Start: 07-02-2022 Percutaneous endovascular repair of abdominal aortic aneurysm (AAA) Abdominal aorta endovascular stent-graft ()[id number] FDA Start: 07-02-2022 Percutaneous endovascular repair of abdominal aortic aneurysm (AAA) Abdominal aorta endovascular stent-graft ()[id number] FDA Start: 07-02-2022 Percutaneous endovascular repair of abdominal aortic aneurysm (AAA) Soft-tissue/mesh anchor, non-bioabsorbable ()[id number] FDA Start: 07-02-2022 CL STENT JERZY FRONTIER 3.0 X 38 FDA Start: 01-16-2024 CL STENT JERZY FRONTIER 3.0 X 38 FDA Start: 01-16-2024 CL STENT JERZY FRONTIER 3.0 X 38 FDA Start: 01-16-2024 CL STENT JERZY FRONTIER 3.0 X 38 FDA Start: 01-16-2024 Goals Date Patient Goal Desired Activity /State Functional Status Date Assessment Result Facility 04-06-2024 Functional Status N/A [facility] 01-23-2024 Functional status Patient at Baseline [facility] Work Phone: 10-03-2023 Functional Status N/A [facility] 06-30-2023 Functional Status N/A [facility] 06-10-2023 Functional Status N/A [facility] 03-11-2023 Functional Status N/A [facility] 12-10-2022 Functional Status N/A [facility] 09-18-2022 Functional Status N/A [facility] 07-31-2022 Functional Status N/A [facility] 07-03-2022 Functional status Patient at Baseline [facility] Work Phone: 06-11-2022 Functional Status N/A [facility] 05-16-2022 Functional status Patient Not at [facility] Work Phone: Mental Status Date Assessment Result Facility 01-23-2024 Cognitive function Cognitive Sta tus Patient is Progressing Toward [facility] Work Phone: 07-03-2022 Cognitive function Cognitive Sta tus Patient at Baseline [facility] Work Phone: 05-16-2022 Cognitive function Cognitive Sta tus Patient at Baseline [facility] Work Phone: Clinical Notes 06-04-2022 to [...] provider. Document Revised: 08/01/2021 Document Reviewed: 04/27/2021 [employer] Patient Education 2021 [employer] 04/06/2024 11:28:52 Cancer Screening for Males [...] if anything looks unusual. Males with a qxhjfe-uumm-fjeqxm risk for skin cancer may want to see a hunter skin diver (auto striper) for an annual body check. Where to find more information [employer]: cancer.org Centers for Disease Control and Prevention: cdc.gov National Cancer [place]: cancer.gov Contact a health care provider if: [...] provider. Document Revised: 05/20/2023 Document Reviewed: 12/02/2022 [employer] Patient Education 2023 [employer]. Follow Up Care 02/25/2024 15:13:08 With:ARLENE CASILLAS, Katia Hall, URL Address: [facility] [address] , [place] [address]- When: Unknown [facility] Dominic 04-06-2024 Note Patient Education Oncology [...] if anything looks unusual. Males with a xpwkpg-wper-lfwlsn risk for skin cancer may want to see a hunter skin diver (dermatologi (more content not included)... [facility] 04-01-2024 Miscellaneous Notes Called and talked with Marifer. Discussed if they wanted, I would be happy to move forward and assume the , but I am not willing to back date to his December start. Marifer from [facility] called and stated that when pt [...] at that time. documented in this encounter [facility] 04-01-2024 Telephone encounter Note Called and talked with Marifer. Discussed if they wanted, I would be happy to move forward and assume the , but I am not willing to back date to his December start. [facility] 04-01-2024 Telephone encounter Note Marifer from [facility] called and stated that when pt [...] not be at lunch at that time. [facility] 03-18-2024 History of Presen t illness Narrative [...] evaluation or treatment. documented in this encounter [facility] 02-24-2024 History of Presen t illness Narrative [...] (6' 2 ) documented in this encounter [facility] Work Phone: 02-17-2024 History of Presen [...] each; Refill: 0 documented in this encounter [facility] 01-23-2024 Consult note Note Date/Time January 23, 2024 12:29pm [facility] [address] [place] [address] Physiatry (Rehab) Consult Note Signed Patient: Alex Anderson MR#: [id number] : 1945 Acct:[id number] Age/Sex: 78 / M Adm Date: 4 Loc: Room: [address] [place] [address] Type: ADM IN Attending Dr: Nas Pruett [...] post mid LAD stenting for ST elevation [place] (01/15) course complicated by hypotension, atrial fibrillation, [...] Problem List clean[facility] COPD (chronic obstructive pulmonary disease) Osteoarthritis Kidney failure stage 1 Hyperlipidemia Obstructive uropathy Vitamin B 12 deficiency Problem List clean-up per request of [facility] Folic acid deficiency Sundowning Tobacco abuse quit april of 2023 Problem List clean-up [facility] Bilateral hydronephrosis TIA (transient ischemic attack) Problem List clean-up per request of [facility]. [facility] Dyslipidemia Essential hypertension Kidney stones history of Problem List clean-up per request of [facility]. [facility] Surgical History S/P cystoscopy Status post endovascular [...] Appearance Clear Urine pH 5.5 Ur Specific [place] 1.022 Urine Protein Trace H Urine Glucose [...] post mid LAD stenting for ST elevation [place] (01/15) course complicated by hypotension, atrial fibrillation, [...] would recommend SNF closer to home in [place]. I understand this may be a discrepancy [...] chart, including current orders, allied health and senior billing consultant notes, labs/imaging and performed diaz elements of exam and I formulated the plan of care and facilitated the medical decision making. I completed a substantive portion of this encounter, the medical decision making portion of this note in its entirety, including Allied health note review, nursing note review, senior billing consultant note review, discussion with nursing and case management, and more than 50% of my time was spent on counseling and coordination of care, time spent 40 minutes Documented By: Rogelio Rai MD 01/23/24 1202 Signed By: <Electronically signed by Rogelio Rai MD> 01/23/24 1247 [facility] Work Phone: 1(838) 231-921408-30-2024 Progress note Author Isaac Edwards [facility] January 23, 2024 12:01pm Note Date/Time January 23, 2024 11 :59am [facility] [address] [place], [place] [id number] Progress Note Signed Patient: Alex Anderson MR#: [id number] : 1945 Acct:[id number] Age/Sex: 78 / M Adm Date: 4 Loc: 4 Room: [address] [place] [address] Type: ADM IN Attending Dr: Nas Pruett [...] <Electronically signed by MD Isaac Edwards> 01/23/24 1206 [facility] Work Phone: 1(635) 646-853708-30-2024 Consult note Author Rob Almazan [facility] January 23, 2024 3:21pm Note Date/Time January 23, 2024 8: 34am [facility] [address] [place] [address] Hospitalist Consult Note Signed Patient: Alex Anderson MR#: [id number] : 1945 Acct:[id number] Age/Sex: 78 / M Adm Date: 4 Loc: Room: [address] [place] [address] Type: ADM IN Attending Dr: Nas Pruett [...] that which is noted above in HPI [facility] Medical History Villarreal catheter in place BPH [...] % (Auto) 64.3, Lymph % (Auto) 15.6, Wilkinson % (Auto) 16.0, Eos % (Auto) 3.6, Baso % (Auto) 0.5, Nucleat RBC Rel Count 0.1, Neut # (Auto) 5.7, Lymph # (Auto) 1.4, Wilkinson # (Auto) 1.4 H, Eos # (Auto) [...] <Electronically signed by Rob Almazan MD> 01/23/24 8082 [facility] Work Phone: 1(800) 321-206608-30-2024 Progress note Author Jakob Lomax [facility] January 23, 2024 12:26am Note Date/Time January 23, 2024 12 :26am [facility] [address] [place] [address] Progress Note Signed Patient: Alex Anderson MR#: [id number] : 1945 Acct:[id number] Age/Sex: 78 / M Adm Date: 4 Loc: Room: [address] [place] [address] Type: ADM IN Attending Dr: Nas Pruett DO Copies to: ~ Date of Service: 01/22/2024 Progress Narrative Note PROGRESS NOTE Progress Note: Patient had a security alert called earlier this evening after getting aggressive with PCT, I responded to the security alert and received full report from bedside and discharge planner regarding the events. patient did fall but [...] will plan to use Haldol 5mg IM, discharge planner aware to notify me if needed. Formal consult to come tomorrow Documented By: Jakob Lomax DO 01/23/24 0022 Signed By: <Electronically signed by Jakob Lomax DO> 01/23/24 0026 [facility] Work Phone: 1(915) 677-775508-29-2024 Progress note Author Toe Al [facility] January 22, 2024 2:01pm Note Date/Time January 22, 2024 2: 01pm [facility] [address] [place] [address] Cardiology Progress Note Signed Patient: Alex Anderson MR#: [id number] : 1945 Acct:[id number] Age/Sex: 78 / M Adm Date: 4 Loc: Room: [address] [place] [address] Type: ADM IN Attending Dr: Nas Pruett [...] need toby found as the next step. air marshal and PT will be consulted Exam Physical [...] heart failure Documented By: Teo Al MD, [facility] 4 [id number] Signed By: <Electronically signed by MD [place] Al> 01/22/24 1401 [facility] Work Phone: 1(236) 410-607008-29-2024 Progress note Author Isaac Edwards [facility] January 22, 2024 1:58pm Note Date/Time January 22, 2024 1: 58pm [facility] [address] [place] [address] Pulmonology Progress Note Signed Patient: Alex Anderson MR#: [id number] : 1945 Acct:[id number] Age/Sex: 78 / M Adm Date: 4 Loc: 4 Room: [address] [place] [address] Type: ADM IN Attending Dr: Nas Pruett [...] <Electronically signed by MD Isaac Edwards> 01/22/24 1352 [facility] Work Phone: 1(315) 263-224708-28-2024 Progress note Author Teo Al [facility] January 21, 2024 5:24pm Note Date/Time January 21, 2024 5: 24pm [facility] [address] [place] [address] Cardiology Progress Note Signed Patient: Alex Anderson MR#: [id number] : 1945 Acct:[id number] Age/Sex: 78 / M Adm Date: 4 Loc: Room: [address] [place] [address] Type: ADM IN Attending Dr: Nas Pruett [...] % (Auto) 64.3 Lymph % (Auto) 15.6 Wilkinson % (Auto) 16.0 Eos % (Auto) 3.6 Baso % (Auto) 0.5 Nucleat RBC Rel Count 0.1 Neut # (Auto) 5.7 Lymph # (Auto) 1.4 Wilkinson # (Auto) 1.4 H Eos # (Auto) [...] heart failure Documented By: Teo Al MD, [facility] 4 172 Signed By: <Electronically signed by [facility] Teo Al> 01/21/24 1724 [facility] Work Phone: 1(485) 307-569508-28-2024 Progress note Author Isaac Edwards [facility] January 21, 2024 11:45am Note Date/Time January 21, 2024 11 :31am [facility] [address] [place] [address] Pulmonology Progress Note Signed Patient: Alex Anderson MR#: [id number] : 1945 Acct:[id number] Age/Sex: 78 / M Adm Date: 4 Loc: Room: 7V9350-2 Type: ADM IN Attending Dr: Nas Pruett [...] <Electronically signed by MD Isaac Edwards> 01/21/24 8961 [facility] Work Phone: 1(432) 327-197708-27-2024 Progress note Author Teo Al [facility] January 20, 2024 3:58pm Note Date/Time January 20, 2024 3: 58pm [facility] [address] [place] [address] Cardiology Progress Note Signed Patient: Alex Anderson MR#: [id number] : 1945 Acct:[id number] Age/Sex: 78 / M Adm Date: 4 Loc: Room: [address] [place] [address] Type: ADM IN Attending Dr: Nas Pruett [...] % (Auto) 71.9 Lymph % (Auto) 11.8 Wilkinson % (Auto) 14.3 Eos % (Auto) 1.7 Baso % (Auto) 0.3 Nucleat RBC Rel Count 0.0 Neut # (Auto) 6.8 Lymph # (Auto) 1.1 Wilkinson # (Auto) 1.4 H Eos # (Auto) [...] heart failure Documented By: Teo Al MD, [facility] 4 1554 Signed By: <Electronically signed by [facility] Teo Al> 01/20/24 1556 [facility] Work Phone: 1(661) 818-745408-27-2024 Progress note Author Isaac Edwards [facility] January 20, 2024 12:59pm Note Date/Time January 20, 2024 8: 53am [facility] [address] [place] [address] Pulmonology Progress Note Signed Patient: Alex Anderson MR#: [id number] : 1945 Acct:[id number] Age/Sex: 78 / M Adm Date: 4 Loc: Room: [address] [place] [address] Type: ADM IN Attending Dr: Nas Pruett [...] signed by MD Isaac Edwards> 01/20/24 1259 [facility] Work Phone: 1(680) 809-564508-26-2024 Progress note Author Isaac Edwards [facility] January 19, 2024 1:20pm Note Date/Time January 19, 2024 9: 06am [facility] [address] [place] [address] Pulmonology Progress Note Signed with Addenda Patient: Alex Anderson MR#: [id number] : 1945 Acct:[id number] Age/Sex: 78 / M Adm Date: 4 Loc: Room: [address] [place] [address] Type: ADM IN Attending Dr: Nas Pruett [...] Addendum Signed By: <Electronically signed by MD Isaca Edwards> 01/19/24 1320 Date of Service: 01/19/2024 [...] <Electronically signed by MD Isaac Edwards> 01/19/24 [facility] Work Phone: 1(498) 309-726308-26-2024 Progress note Author Teo Al [facility] January 19, 2024 12:11pm Note Date/Time January 19, 2024 12 :11pm [facility] [address] [place] [address] Cardiology Progress Note Signed Patient: Alex Anderson MR#: [id number] : 1945 Acct:[id number] Age/Sex: 78 / M Adm Date: 4 Loc: Room: [address] [place] [address] Type: ADM IN Attending Dr: Nas Pruett [...] % (Auto) 78.5 Lymph % (Auto) 8.8 Wilkinson % (Auto) 11.9 Eos % (Auto) 0.4 Baso % (Auto) 0.4 Nucleat RBC Rel Count 0.1 Neut # (Auto) 8.6 H Lymph # (Auto) 1.0 Wilkinson # (Auto) 1.3 H Eos # (Auto) [...] heart failure Documented By: Teo Al MD, [facility] 4 1206 Signed By: <Electronically signed by MD [place] Al> 01/19/24 1211 [facility] Work Phone: 1(293) 860-845408-25-2024 Progress note Author Justina Lara [facility] January 18, 2024 3:10pm Note Date/Time January 18, 2024 3: 10pm [facility] [address] [place] [address] Pulmonology Progress Note Signed Patient: Alex Anderson MR#: [id number] : 1945 Acct:[id number] Age/Sex: 78 / M Adm Date: 4 Loc: Room: [address] [place] [address] Type: ADM IN Attending Dr: Nas Pruett [...] managing post PCI/stent in LAD for acute [place]. He is on beta- maldonado, antiplatelets, statin, [...] signed by Justina Lara MD> 01/18/24 1510 [facility] Work Phone: 1(140) 483-225208-25-2024 Progress note Author Ana Castro [facility] January 18, 2024 12:49pm Note Date/Time January 18, 2024 12 :50pm [facility] [address] [place] [address] Cardiology Progress Note Signed Patient: Alex Anderson MR#: [id number] : 1945 Acct:[id number] Age/Sex: 78 / M Adm Date: 4 Loc: Room: [address] [place] [address] Type: ADM IN Attending Dr: Nas Pruett [...] MPV Neut % (Auto) Lymph % (Auto) Wilkinson % (Auto) Eos % (Auto) Baso % (Auto) Nucleat RBC Rel Count Neut # (Auto) Lymph # (Auto) Wilkinson # (Auto) Eos # (Auto) Baso # (Auto) PHA Creatinine Clear Sodium Potassium Chloride Carbon Dioxide Anion Gap BUN Creatinine Est GFR (CKD-EPI) Glucose POC Glucose 115 126 Calcium Urine Color Light-yellow Urine Appearance Cloudy A Urine pH 6.0 Ur Specific [place] 1.018 Urine Protein Trace H Urine Glucose [...] % (Auto) 75.1 Lymph % (Auto) 11.5 Wilkinson % (Auto) 12.8 Eos % (Auto) 0.2 Baso % (Auto) 0.4 Nucleat RBC Rel Count 0.0 Neut # (Auto) 9.1 H Lymph # (Auto) 1.4 Wilkinson # (Auto) 1.5 H Eos # (Auto) 0.0 Baso # (Auto) 0.0 PHA Creatinine Clear 46.65 Sodium 136 Potassium 3.7 Chloride 107 Carbon Dioxide 21.2 Anion Gap 11.5 BUN 29 H Creatinine 1.59 H Est GFR (CKD-EPI) 43.613 Glucose 125 H POC Glucose Calcium 8.7 Urine Color Urine Appearance Urine pH Ur Specific [place] Urine Protein Urine Glucose (UA) Urine Ketones [...] hope to restore sinus mechanism Documented By: nAa Castro MD 01/18/24 1247 Signed By: <Electronically signed by MD Ana Castro> 01/18/24 1249 [facility] Work Phone: 1(689) 598-837108-24-2024 Progress note Author Ana Castro [facility] January 17, 2024 12:43pm Note Date/Time January 17, 2024 12 :43pm [facility] [address] [place] [address] Cardiology Progress Note Signed Patient: Alex Anderson MR#: [id number] : 1945 Acct:[id number] Age/Sex: 78 / M Adm Date: 4 Loc: Room: [address] [place] [address] Type: ADM IN Attending Dr: Nas Pruett [...] MPV Neut % (Auto) Lymph % (Auto) Wilkinson % (Auto) Eos % (Auto) Baso % (Auto) Nucleat RBC Rel Count Neut # (Auto) Lymph # (Auto) Wilkinson # (Auto) Eos # (Auto) Baso # (Auto) Platelet Estimate Plt Morphology Comment RBC Morphology PHA Creatinine Clear Sodium Potassium Chloride Carbon Dioxide Anion Gap BUN Creatinine Est GFR (CKD-EPI) Glucose POC Glucose POC Glucose Comment Calcium Troponin I High Sens 46054.4 H* 155828.2 H* 562166.4 H* Triglycerides Cholesterol LDL Cholesterol, Calc VLDL Cholesterol HDL Cholesterol Cholesterol/HDL Ratio 01/16/24 01/16/24 01/16/24 18:37 19:15 21:31 Corrected WBC Uncorrected WBC Count RBC Hgb Hct MCV MCH MCHC RDW Plt Count MPV Neut % (Auto) Lymph % (Auto) Wilkinson % (Auto) Eos % (Auto) Baso % (Auto) Nucleat RBC Rel Count Neut # (Auto) Lymph # (Auto) Wilkinson # (Auto) Eos # (Auto) Baso # (Auto) Platelet Estimate Plt Morphology Comment RBC Morphology PHA Creatinine Clear Sodium Potassium Chloride Carbon Dioxide Anion Gap BUN Creatinine Est GFR (CKD-EPI) Glucose POC Glucose 119 118 POC Glucose Comment Glu2: cleaned meter Calcium Troponin I High Sens 39601.2 H* Triglycerides Cholesterol LDL Cholesterol, Calc VLDL Cholesterol HDL Cholesterol Cholesterol/HDL Ratio 01/17/24 01/17/24 01/17/24 04:37 07:14 11:52 Corrected WBC 17.7 H Uncorrected WBC Count 17.7 H RBC 4.46 Hgb 12.7 L Hct 38.4 L MCV 86.1 MCH 28.4 MCHC 33.0 RDW 15.8 H Plt Count 135 L MPV 9.0 Neut % (Auto) 77.1 Lymph % (Auto) 6.9 Wilkinson % (Auto) 15.6 Eos % (Auto) 0.0 Baso % (Auto) 0.4 Nucleat RBC Rel Count 0.0 Neut # (Auto) 13.6 H Lymph # (Auto) 1.2 Wilkinson # (Auto) 2.8 H Eos # (Auto) [...] Comment Calcium 8.9 Troponin I High Sens 85905.6 H* Triglycerides 67 Cholesterol 74 L LDL [...] signed by MD Ana Castro> 01/17/24 1243 [facility] Work Phone: 1(704) 477-973008-24-2024 Progress note Author Justina Lara [facility] January 17, 2024 11:57am Note Date/Time January 17, 2024 11 :54am [facility] [address] [place] [address] Pulmonology Progress Note Signed Patient: Alex Andreson MR#: [id number] : 1945 Acct:[id number] Age/Sex: 78 / M Adm Date: 4 Loc: Room: 6Z4150-4 Type: ADM IN Attending Dr: Nas Pruett [...] managing post PCI/stent in LAD for acute [place]. He is on beta- maldonado, antiplatelets, statin, [...] signed by Justina Lara MD> 01/17/24 1157 [facility] Work Phone: 1(987) 458-654408-23-2024 Consult note Author Justina Lara [facility] January 16, 2024 3:19pm Note Date/Time January 16, 2024 3: 16pm [facility] [address] [place] [address] Pulmonology Consult Note Signed Patient: Alex Anderson MR#: [id number] : 1945 Acct:[id number] Age/Sex: 78 / M Adm Date: 4 Loc: Room: 7S3336-3 [facility]: Nas Pruett DO Copies to: [...] abdominal pain nausea was diagnosed with acute [place] and transferred from [facility]. He underwent left heart catheterization and stent in mid LAD Review of Systems Review of Systems All other systems reviewed & are negative unless noted below or in HPI Constitutional Constitutional: Reports as per HPI Cardiovascular Cardiovascular: Reports as per HPI and Reports chest pain at rest [facility] Medical History (Updated 01/16/24 @ 12:52 by [...] Problem List clean-up per [facility] of [facility]. [facility] Dyslipidemia Essential hypertension Kidney stones history of Problem List clean-up [facility] (Updated 12/31/23 @ 14:22 [...] managing post PCI/stent in LAD for acute W[place]. He is on beta- maldonado, antiplatelets, statin, antihypertensive medication per cardiology Monitor creatinine post cath Bronchodilators as needed for COPD Chest x-ray in a.m. DVT prophylaxis Lovenox Documented By: Justina Lara MD 01/16/24 1509 Signed By: <Electronically signed by Justina Lara MD> 01/16/24 1519 [facility] Work Phone: 1(925) 534-452008-23-2024 History and physical note Author W Flynn [facility] January 16, 2024 12:53pm Note Date/Time January 16, 2024 12 :45pm [facility] [address] [place] [address] Cardiology H&P Signed Patient: Alex Anderson MR#: [id number] : 1945 Acct:[id number] Age/Sex: 78 / M Adm Date: 4 Loc: 4C Room: 3Q1764-8 Type: REG SDC Attending Dr: Nas Pruett DO Copies to: MD Nas Richards DO~ Date of Service: 01/16/2024 Cardiology HPI History of Present Illness Chief complaint: Anterior STEMI HPI: Mr. Anderson is a 78 year old male transferred from [place] with acute anterior ST elevation WY; original phone call taken from outside ER attending at 09:30 AM. Patient arrived in [facility] [place] at 1116, after attempted right femoral approachand [...] of his suspected symptomatology); finally went to [place] ER around 02-01 30 this morning whereupon he was appropriately he diagnosed, appropriate upstream therapy instituted under my direction after discussion with ER attending, and emergently transferred to Counts include 234 beds at the [facility] for revascularization. Total 60 minutes nonprocedural critical care time were devoted to the outside ERattending and staff, [place] staff, nursing staff, patient and family pre and post procedurally Review of Systems Review of Systems All other systems reviewed & are negative unless noted below or in HPI Constitutional Constitutional: Reports as per HPI Cardiovascular Cardiovascular: Reports as per HPI and Reports chest pain at rest [facility] Medical History (Updated 01/16/24 @ 12:52 by [...] Interpretations EKG EKG results cardiology: sinus rhythm WY, pacemaker, normal Myocardial infarction: anterior WY (acute or recent) A&P - Cardiology (1) [...] signed by Nas Pruett DO> 01/16/24 1251 [facility] Work Phone: 1(417) 104-244408-23-2024 [facility]-2024 Procedure [facility]05-10-2024 Hospital Discharge instructions Patient Education 10/03/2023 [...] Follow these instructions at home: Medicines Take hldd-tcl-hbtafgt and prescription medicines only as told by [...] provider. Document Revised: 01/31/2021 Document Reviewed: 01/31/2021 [employer] Patient Education 2022 [employer]. Follow Up Care 08/15/2023 11:04:15 With:ARLENE CASILLAS, Katia Hall, URL Address: [facility] [address] , [place] [address]- [phone] When: Unknown [facility] 02-05-2024 Hospital Discharge instructions Patient Education 06/30/2023 [...] Follow these instructions at home: Medicines Take pgyu-wit-pgghogd and prescription medicines only as told by [...] provider. Document Revised: 01/31/2021 Document Reviewed: 01/31/2021 [employer] Patient Education 2022 [employer]. Follow Up Care 05/06/2023 11:11:29 With:ARLENE CASILLAS, Katia Hall, URL Address: [facility] [address] , [place] [address]- [phone] When: Unknown Comments:1 day for catheter removal [facility] 01-16-2024 Hospital Discharge instructions Patient Education 06/10/2023 15:16:23 [facility] (CUSTOM) Rezu Post-Procedure Instructions [...] cotton underwear to absorb moisture and keep air drier. 6. Keep the drainage bag below [...] Address: [facility] [address] [place] [address]- Business (1) When:06/24/2023 15:15:55 Comments:for villarreal removal [facility]01-16-2024 Note [id number]23 NoteCustom Rezum Post-Procedure Instructions General Recommendations [...] site using a circul (more content not included)...[facility]12-12-2023 Evaluation note* Encounter Date Diagnosis Assessment Notes Treatment Notes Treatment Clinical Notes Apr, Primary hypertension (ICD-10 - I10) [facility] Other 11-21-2023 Evaluation note* Encounter Date Diagnosis [...] supplement. I asked the patient to continue rtaq-ccy-ggxjrxd iron supplement once or twice daily Mar, Primary hypertension (ICD-10 - I10) BP is elevated. Will start Norvasc 5 mg PO daily. i asked the patient to monitor Bp closely with tapering steroid dose [facility] Other 10-17-2023 Hospital Discharge instructions Patient Education [...] including vitamins, herbs, eye drops, creams, and uzuz-rki-aapooxc medicines. Any problems you or family members [...] provider tells you to take them. Taking ehex-lbm-cflktwa medicines, vitamins, herbs, and supplements. Surgery safety [...] provider. Document Revised: 02/05/2022 Document Reviewed: 02/05/2022 [employer] Patient Education 2022 [employer]. 03/11/2023 14:15:06 Benign Prostatic Hyperplasia Benign Prostatic [...] urethra. Follow these instructions at home: Take hljy-rbm-qednfyl and prescription medicines only as told by [...] provider. Document Revised: 11/28/2021 Document Reviewed: 11/28/2021 [employer] Patient Education 2022 [employer]. Follow Up Care 02/07/2023 16:01:50 With:ARLENE CASILLAS, Katia Hall, BRAULIOL Address: [facility] [address], [place] [address]- When:Within 3 Month(s) Comments:Sched cysto/FISH/Cytol/BT check [facility] 10-17-2023 Evaluation + Plan note Diagnostic Tests Pending * UroVysion Fish and Urine Cyto ([facility]) 03/11/23 [facility]07-18-2023 Evaluation + Plan note Diagnostic Tests Pending * UroVysion Fish and Urine Cyto ([facility]) 12/10/22 [facility]07-18-2023 Hospital Discharge instructions Patient Education 12/10/2022 [...] if anything looks unusual. Men with a kwdwqh-pbum-fuactx risk for skin cancer may want to see a hunter skin diver (auto striper) for an annual body check. What are the benefits of screening? Cancer screening is done to look for cancer in the very early stages, before it spreads and becomesharder to treat and before you would start to notice symptoms. Finding cancer early improves the chances of successful treatment. It may save your life. Where to find more information [place] [employer]: www.cancer.org Centers for Disease Control and Prevention: www.cdc.gov National Cancer [place]: www.cancer.gov Contact a health care provider if: [...] provider. Document Revised: 10/08/2021 Document Reviewed: 04/07/2020 [employer] Patient Education 2022 [employer]. Follow Up Care 11/15/2022 14:27:10 With:ARLENE CASILLAS, Katia Hall, URL Address: [facility] [address] , [place] [address]- When: Unknown [facility] 04-26-2023 Hospital Discharge instructions Patient Education 09/18/2022 [...] cells. Follow these instructions at home: Take tems-dvt-ypazvvy and prescription medicines only as told by [...] is important. Where to find more information [place] [employer] (ACS): cancer.org National Cancer [place] (NCI): cancer.gov Contact a health care provider [...] provider. Document Revised: 04/22/2022 Document Reviewed: 04/22/2022 [employer] Patient Education 2022 [employer]. Follow Up Care 08/26/2022 14:12:46 With:ARLENE CASILLAS, Katia Hall, URL Address: [facility] [address] , [place] [address]- When: Unknown [facility] 04-10-2023 NoteEXAM: XR CHEST 2 V HISTORY: Pre-surgery evaluation COMPARISON: None. TECHNIQUE: PA and lateral views of the chest. FINDINGS: The cardiomediastinal silhouette is normal. No focal consolidation is identified. There is no pneumothorax. No pleural effusion is noted. The osseous structures are intact. IMPRESSION: No acute cardiopulmonary process. Electronically authenticated by: CORKY FORD Date: 2022-09-02 14:17[facility]03-29-2023 Evaluation note* Encounter Date Diagnosis Assessment Notes [...] have his bladder tumor removal as scheduled. [facility] Other 03-08-2023 Evaluation + Plan note Diagnostic Tests Pending * UroVysion Fish and Urine Cyto ([facility]) 07/31/22 [facility] 03-08-2023 Hospital Discharge instructions Patient [...] including vitamins, herbs, eye drops, creams, and jrqd-scz-yuutwqn medicines. Any problems you or family members [...] provider tells you to take them. Taking rlyv-ccq-vjxozxx medicines, vitamins, herbs, and supplements. Tests You [...] 03/08/2010 Document Revised: 12/11/2018 Document Reviewed: 12/11/2018 [employer] Patient Education 2020 [employer]. Follow Up Care 07/25/2022 10:56:51 With:ARLENE CASILLAS, Katia Hall, URL Address: [facility] [address] , [place] [address]- When: Unknown [facility] 03-02-2023 Evaluation note* Encounter Date Diagnosis Assessment [...] some bladder issues. I did call the [facility]. The device is compatible up to 3 Maggi for MRI. I explained this to the family and the patient. Jul, Other specified postprocedural states (ICD-10 - Z98.890) Jul, Personal history of other diseases of the circulatory system (ICD-10 - Z86.79) [facility] Other 02-07-2023 [facility]01-25-2023 Evaluation note* Encounter Date Diagnosis Assessment [...] plan to do this percutaneously under MAC. [facility] Other 01-17-2023 Hospital Discharge instructions Patient Education [...] including vitamins, herbs, eye drops, creams, and jjqq-uab-yrfbgfq medicines. Any problems you or family members [...] provider tells you to take them. ?Taking xggd-uxr-gzjcqct medicines, vitamins, herbs, and supplements. Follow instructions [...] Follow these instructions at home: Medicines Take iejx-zox-pjhuthp and prescription medicines only as told by [...] 05/09/2001 Document Revised: 05/04/2019 Document Reviewed: 05/04/2019 [employer] Patient Education 2020 [employer]. Follow Up Care 05/22/2022 13:37:28 With:[facility] Address: [address] 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 [facility] Other 01-10-2023 Evaluation note* Encounter Date Diagnosis [...] (ICD-10 - E78.5) Patient is on statin [facility] Other Discharge summary Author Teo Al [facility] January 23, 2024 3:52pm Note Date/Time January 23, 2024 3: 52pm [facility] [address] [place] [address] Discharge Summary Signed Patient: Alex Anderson MR#: [id number] : 1945 Acct:[id number] Age/Sex: 78 / M Adm Date: 4 Loc: Room: [address] [place] [address]: Nas Pruett DO Copies to: MD Teo Richards MD, [facility] Nas Pruett DO~ Providers Date of Discharge: [...] Course Hospital course: Patient was transferred from [facility] emergency department with anterior ST elevation myocardial infarction and was taken straight to the [facility] by Dr. Pruett and underwent urgent PCI [...] doctor or pharmacist, without first calling the virologist who implanted the stent. If you require [...] weight lifting, stair steppers, etc. until the virologist approves these activities. Check with the virologist on your first follow-up visit. CALL YOUR PRESSER MACHINE: -If bleeding should occur from the catheter insertion site- apply pressure to the site then immediately call us. -Report any fever, redness, drainage, increased swelling, or firmness at the catheter insertion site. Some bruising or slight swelling may be present at thetime of discharge. -Should arm or leg become cold, numb, white, or blue, contact the virologist immediately. -IF you should experience episodes of [...] Cardiopulmonary Rehabilitation program is recommended. The attending virologist or a nurse clinician should provide you with specificinstructions regarding activity, diet, medications, and further follow up for you. Follow the medication instructions provided on your discharge. If the dosages and instructions on this sheet differ from the dosage and instructions on the bottle, follow the instructions on the bottle. [facility] is not responsible for incorrect prescription information [...] Appearance Clear, Urine pH 5.5, Ur Specific [place] 1.022, Urine Protein Trace H, Urine Glucose (UA) Normal, Urine Ketones Negative, Urine Occult Blood 2+ H, Urine Nitrite Negative, Urine Bilirubin Negative, Urine Urobilinogen 2 H, Ur Leukocyte Esterase 4+ H, Urine RBC 20-49 H, Urine WBC 20-49 H, Urine WBC Clumps Rare H, Ur Squamous Epith CellsN/A, Urine Bacteria Rare, Hyaline Casts None, Urine Mucus Rare Documented By: Teo Al MD, [facility] 4 1548 Signed By: <Electronically signed by [facility] Teo Al> 01/23/24 1552 [facility] Work Phone: Evaluation + Plan note No data available for this section [facility] evaluation + Plan note Future Appointments Appointment Date:10/04/2022 10:00:00 AM Scheduled Provider: Location:[facility] Appointment Type:URO Nurse Visit [facility] Evaluation + Plan note Future Appointments Appointment Date:06/16/2023 10:00:00 AM Scheduled Provider: Location:[facility] Appointment Type:URO Nurse Visit Appointment Date:06/30/2023 01:30:00 PM Scheduled Provider:Katia JACOBS MD Location:[facility] Appointment Type:URO Office Visit Diagnostic Tests Pending * UroVysion Fish and Urine Cyto ([facility]) [facility]10[facility] App[facility]ments Appointment Date:06/30/2023 01:30:00 PM Scheduled Provider:Katia JACOBS MD Location:[facility] Appointment Type:URO Office Visit [facility] evaluation + Plan note Future Appointments Appointment Date:07/01/2023 08:30:00 AM Scheduled Provider: Location:[facility] Appointment Type:URO Nurse Visit [facility] evaluation + Plan note Future Appointments Appointment Date:09/09/2023 02:15:00 PM Scheduled Provider:Katia JACOBS MD Location:[facility] Appointment Type:URO Procedure 15 min [facility] Evaluation + Plan note Future Appointments Appointment Date:10/07/2023 02:45:00 PM Scheduled Provider:Katia JACOBS MD Location:[facility] Appointment Type:URO Procedure 15 min [facility] evaluation + Plan note Future Appointments Appointment Date:10/31/2023 11:00:00 AM Scheduled Provider: Location:[facility] Appointment Type:URO Nurse Visit [facility] evaluation + Plan note Future Appointments Appointment Date:10/31/2023 11:00:00 AM Scheduled Provider: Location:[facility] Appointment Type:URO Nurse Visit Diagnostic Tests Pending * UroVysion Fish and Urine Cyto ([facility]) 10[facility]03/23 [facility] App[facility]ments Appointment Date:11/04/2023 10:30:00 AM Scheduled Provider: Location:[facility] Appointment Type:URO Nurse Visit [facility] evaluation + Plan note Future Appointments Appointment Date:12/02/2023 11:00:00 AM Scheduled Provider:TC Boles APRN, [place] X Location:[facility] Appointment Type:URO Office Visit [facility] evaluation + Plan note Future Appointments Appointment Date:01/20/2024 11:30:00 AM Scheduled Provider:TC Boles APRN, [place] X Location:[facility] Appointment Type:URO Office Visit [facility] evaluation + Plan note Future Appointments Appointment Date:04/06/2024 11:00:00 AM Scheduled Provider:Katia JACOBS MD Location:[facility] Appointment Type:URO Procedure 15 min [facility] evaluation + Plan note Future Appointments Appointment Date:05/06/2024 12:30:00 PM Scheduled Provider:Fabi Antonio Location:[facility] Appointment Type:URO Office Visit Appointment Date:10/05/2024 02:00:00 PM Scheduled Provider:Kat[facility]OBS [facility] Type:URO Procedure 15 min [facility] Evaluation + Plan note Future Appointments Appointment Date:05/06/2024 12:30:00 PM Scheduled Provider:Fabi Antonio Location:[facility] Appointment Type:URO Office Visit Appointment Date:10/05/2024 02:00:00 PM Scheduled Provider:[facility] Type:[facility]O Procedure 15 min Diagnostic Tests Pending * UroVysion Fish and Urine Cyto ([facility]) 04/06/24 [facility] Evaluation note* Diagnosis Onset Date Resolution [...] tract infection) acute Vitamin B 12 deficiency [facility] Work Phone: evaluation noteNo assessment information available [facility] Work Phone: evaluyioky noteNo InformationNort [employer] Other evaluation note* Diagnosis Onset Date Resolution Status Status post endovascular aneurysm repair (EVAR) acute Abdominal aortic aneurysm without rupture acute Anemia acute Chronic kidney disease, stage 3b acute Hyperlipidemia acute Hypertensive nephropathy acu te Iron deficiency acute [facility] note* Diagnosis Onset Date Resolution Status Abdominal aortic aneurysm without rupture acute Anemia acute Chronic kidney disease, stage 3b acute Hyperlipidemia acute Hypertensive nephropathy acu te Iron deficiency acute Obstructive nephropathy [facility] Work Phone: evaluation note* Diagnosis Onset Date Resolution Status Abdominal aortic aneurysm without rupture acute Atrial fibrillation, new onset acute Chronic kidney disease, stage 3b acute Chronic systolic heart failure acute Delirium acute Hyperlipidemia acute Hypertension acute Hypertensive nephropathy acu te Hypotension acute Impaired mobility and activities of daily living acute Iron deficiency acute Ischemic cardiomyopathy acut e Sleep-wake cycle disorder ac [place] ST elevation myocardial infa rction (STEMI) of anterior wall acute Status post endovascular aneurysm repair (EVAR) acute [facility] Work [facility]: evaluation note* Diagnosis Onset Date Resolution Status Abdominal aortic aneurysm without rupture acute Atrial fibrillation, new onset acute Chronic kidney disease, stage 3b acute Chronic systolic heart failure acute Hyperlipidemia acute Hypertensive nephropathy acu te Hypotension acute Impaired mobility and activities of daily living acute Iron deficiency acute Ischemic cardiomyopathy acut e Sleep-wake cycle disorder ac iroquois ST elevation myocardial infa rction (STEMI) of anterior wall acute Status post endovascular aneurysm repair (EVAR) acute Stented coronary artery acut e Delirium resolved Abdominal aortic aneurysm without rupture acute Anemia acute CHF (congestive heart failure) acute Chronic kidney disease, stage 3b acute Hyperlipidemia acute Hypertensive nephropathy acu te Iron deficiency acute [facility]ive [facility] Work [facility]: evaluation note* Diagnosis Paroxysmal atrial fibrillation (Multi) Atrial fibrillation documented in this encounter [facility] Work Phone: Evaluation note* Diagnosis Pneumonia [...] cardiomyopathy acut e Sleep-wake cycle disorder ac iroquois ST elevation myocardial infa rction (STEMI) of anterior wall acute Status post endovascular aneurysm repair (EVAR) acute Stented coronary artery acut e Delirium resolved Abdominal aortic aneurysm without rupture acute Anemia acute CHF (congestive heart failure) acute Chronic kidney disease, stage 3b acute Hyperlipidemia acute Hypertensive nephropathy acu te Iron deficiency acute Obstructive nephropathy acut e Chest congestion noneactive [place] Work Phone: Evaluation note* Diagnosis Onset Date Resolution Status Abdominal aortic aneurysm without rupture acute Atrial fibrillation, new onset acute Chronic kidney disease, stage 3b acute Chronic systolic heart failure acute Hyperlipidemia acute Hypertensive nephropathy acu te Hypotension acute Impaired mobility and activities of daily living acute Iron deficiency acute Ischemic cardiomyopathy acut e Sleep-wake cycle disorder ac iroquois ST elevation myocardial infa rction (STEMI) of [...] noneactive Right lower lobe pneumonia n oneactive [facility] Work Phone: Evaluation note* Diagnosis Pneumonia of right lower lobe due to infectious organism documented in this encounter [facility] Author Willy Lambert [facility] January 14, 2024 8:46am Note Date/Time January 14, 2024 8: 46am [facility] [address] [place] [id number] Gastroenterology H&P Signed Patient: Alex Anderson MR#: [id number] : 1945 Acct:[id number] Age/Sex: 78 / M Adm Date: 4 Loc: Room: Type: [facility] Attending Dr: Willy Lambert MD Copies to: MD Stalney Valenzuela MD~ Date of Service: 01/14/2024 HISTORY [...] <Electronically signed by Willy Lambert MD> 01/14/24845 [facility] Work Phone: History general Narrative - [...] INJ URY, 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, 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 [facility] Other History general Narrative - Reported* Type [...] INJ URY, 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, 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 [facility] Other Hissqxs general Narrative - Reported* Type Description Date [...] 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 Hospitalization History SEE ABOVE [facility] Other Hospital Discharge instructions No data available for this section [facility] Progress note No data available for this section [facility] Summary Purpose Family History No Family [...] I71.4 1 YR F/U AAA; [place] [facility] Chief Complaint I71.4 1 YR F/U AAA; [facility] [facility] [place] 6 month f/u Reason for Visit [...] section and content) DATE CREATED AUTHOR 05/12/2021 [facility] dical Specialist DATE CREATED AUTHOR AUTHOR'S ORGANIZ ATION 09/23/2022 [facility] [place] [facility] DATE CREATED AUTHOR AUTHOR'S ORGANIZ ATION 01/23/2023 [facility] ical Center DATE CREATED AUTHOR AUTHOR'S ORGANIZ ATION 01/23/2023 [employer] DATE CREATED AUTHOR AUTHOR'S ORGANIZ ATION 03/20/2024 [facility] dical Specialists EPIC DATE CREATED AUTHOR AUTHOR'S ORGANIZ ATION 04/08/2024 [facility] DATE CREATED AUTHOR AUTHOR'S ORGANIZ ATION 04/11/2024 [facility] ysician [facility] DATE CREATED AUTHOR AUTHOR'S ORGANIZ ATION 04/11/2024 [facility] DATE CREATED AUTHOR AUTHOR'S ORGANIZ ATION 04/13/2024 [facility] DATE CREATED AUTHOR AUTHOR'S ORGANIZ ATION 04/15/2024 [facility] Patient Care team informatio n (unrecognized [...] Reji Garcia MD Other Provider Active Start: [facility] 2023 End: January 23, 2024 Lydia [...] 23, 2024 Nas Pruett DO Admit Provider, [facility] er Provider Active Start: January 23, 2024 Myesha Feliz MD Other Provider Active Start: Au estefania 2023 Rogelio Rai MD Other Provider Active Start: A ugust 2023 Heaven Truong APRN Other Provider Active St art: January 23, 2024 Mckay Yeboah Jr, DO Other Provider Active S tart: January 23, 2024 Ryley Hoyt MD Other Provider Active Start: January 23, 2024 Ledy Ranlde , ROCIO Other Provider Active Star t: [...] Other Provider Active Start: Dec Vidya Hernandez CAROUSEL OPERATOR-C Other Provider Active St art: January 23, [...] Emmanuel Silverman MD Other Provider Active Start: [facility] 2023 Monisha Moore RN Other Provider Active Start: A ust 2023 Isaac Edwards MD Attending Provider Active Start: January 23, 2024 Team Status: Active Member Role Status Dates Stanley Emerson MD Primary Care Provider Active Start: January 23, 2024 Nas Pruett DO Admit Provider, [facility] er Provider Active Start: January 23, 2024 Myesha Feliz MD Other Provider Active Start: [facility] 2023 Rogelio Rai MD Attending Provider, [...] Daisha Li RN Other Provider Active Start: [facility] 2023 Radha Berrios MD Other Provider [...] September 18, 2023 End: September 18, 2023 aMrgarito Valentine MD Attending Provider Active Start: September 18, 2023 End: September 18, 2023 Team Status: Inactive Member Role Status Dates Stanley Emerson MD Primary Care Provider Active Start: February 04, 2024 End: February 04, 2024 Celia Griffin MD Attending Provider Active Star t: February 04, 2024 End: February 04, 2024 Central Office Maintainer Relationship Specialty Start Date End Date Stanley Emerson MD [address] [phone] PCP - General 05/17/22 Central Office Maintainer Relationship Specialty Start Date End Date Stanley Emerson MD [address] [place] [id number] PCP - ACO Reach 10/17/22 Stanley Emerson MD [address] [place] [phone] PCP - General Family Medicine 11/20/22 Dora Santiago LPN Licensed Practical Nurse Family Medicine 12/22/23 Central Office Maintainer Relationship Specialty Start Date End Date Stanley Emerson MD [address] [place] [address] PCP - ACO Reach 10/17/22 Stanley Emerson MD [address] [place] [phone] PCP - General Family Medicine 11/20/22 Dora [...] January 16, 2024 End: January 23, 2024 Tuh Alvarez , ROCIO Other Provider Active Start [...] 16, 2024 End: January 23, 2024 Anand Mckenzei MD Other Provider Active Start: A ugust [...] Mayo MD Other Provider Active Start: A [facility] 2023 End: January 23, 2024 Shane [...] Haddad MD Other Provider Active Start: A [facility] 2023 End: January 23, 2024 Emmanuel Silverman MD Other Provider Active Start: [facility] 2023 End: January 23, 2024 Monisha Moore RN Other Provider Active Start: A [facility] 2023 End: January 23, 2024 Myesha Feliz MD Other Provider Active Start: [facility] 2023 End: January 23, 2024 Rogelio Rai MD Other Provider Active Start: A [facility] 2023 End: January 23, 2024 Heaven [...] Team Status: Active Member Role Status Dates Stalney Emerson MD Primary Care Provider Active Start: March 08, 2024 Rosalie Bailey APRN Attending Provider Active Start: March 08, 2024 Team Status: Inactive Member Role Status Dates Stanley Emerson MD Primary Care Provider Active Start: March 08, 2024 End: March 08, 2024 Rosalie Bailey APRN Attending Provider Active Start: March 08, 2024 End: March 08, 2024 Central Office Maintainer Relationship Specialty Start Date End Date Stanley Emerson MD [address] [place] [address] (Fax) PCP - ACO Reach 10/17/22 Stanley Emerson MD [address] [place] [address] PCP - General Family Medicine 11/20/22 Dora Santiago LPN Licensed Practical Nurse Family Medicine 12/22/23 Central Office Maintainer Relationship Specialty Start Date End Date Stanley Emerson MD [address] [place] [address] (Fax) PCP - ACO Reach 10/17/22 Stanley Emerson MD [address] [place] [phone] (Fax) PCP - General Family Medicine 11/20/22 Dora Santiago LPN Licensed Practical Nurse Family Medicine 12/22/23 Central Office Maintainer Relationship Specialty Start Date End Date Stanley Emerson MD [address] [place] [address] (Fax) PCP - ACO Reach 10/17/22 Stanley Emerson MD [address] [facility] [address] [place] [address] PCP - General Family Medicine 11/20/22 Dora Santiago LPN Licensed Practical Nurse Family Medicine 12/22/23 REASON FOR VISIT (unrecogniz ed section and content) Reason Comments ekg visit Specialty Diagnoses / Procedures Referred By Contac t Referred To Contact Diagnoses Paroxysmal atrial fibrillation (Multi) Procedures ECG 12 Lead Teo Al MD [address] [facility] [address] [place] [address] Referral ID Status Reason Start Date Expiration Date V isits Requested Visits Authorized [id number] Authorized 02/10/2024 02/09/2025 1 1 Reason Comments [...] BE BASED ON THE PRIMARY CLINICAL RECORDS. [employer] provides no warranty or guarantee of the accuracy or completeness of information in this document.
[2024-04-28 07:59] LABS: Anion Gap 19.6; BUN Creatinine Ratio 15.3; Calcium 8.4 mg/dL (8.5-10.1); Carbon Dioxide 20.1 mmol/L (21.0-32.0); Chloride 105 mmol/L (98-107); Estimated GFR (African America 31 (>=60 mL/min/1.73m^2); Estimated GFR (Non-African Ame 25 (>=60 mL/min/1.73m^2); Glucose 137 mg/dL (74-106); Potassium 3.7 mmol/L (3.5-5.1); Sodium 141 mmol/L (136-145)
--- NOTE | 2024-04-28 08:02 | CT_ITS ---
The [address] [address] Patient Name: ALEX GRAJEDA MRN: [id number] date: 1945 Sex: M Assigned Patient Location: ER Current Patient Location: Accession/Order Number: [id number] Exam Date: 04/28/2024 09:38 Report Date: 04/28/2024 10:12 At the request of: BRYANT ANTON Procedure: CT abdomen pelvis wo con EXAM: CT abdomen pelvis wo con CLINICAL INDICATION: zapien COMPARISON: CT abdomen/pelvis 05/16/2022 TECHNIQUE: Axial CT of the abdomen, and pelvis was performed from the top of the hemidiaphragms to the inferior osseous pelvis without intravenous contrast. 2-D reformats were obtained. Automatic exposure control radiation dose reduction technology was utilized. FINDINGS: Evaluation is limited by lack of intravenous contrast. Visualized portion of the lung bases demonstrate areas of probable nodular atelectasis/scarring in the right lower lobe measuring up to 1.6 cm, new from prior. Hypoattenuating hepatic lesions, some of which are compatible with simple cysts and others which are too small to accurately characterize. Grossly stable appearance of several iso to hyperechoic attenuating left renal lesions, likely a proteinaceous/hemorrhagic cyst. Additional simple left renal cysts and tiny probable proteinaceous/hemorrhagic right renal cysts. Borderline right hydroureter. The spleen, adrenal glands and pancreas are unremarkable. Gallbladder contains some dependent stones/sludge. Interval aortobiiliac stent graft placement with excluded aneurysm sac measuring up to 5.4 cm, improved from prior. 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 No enlarged lymph nodes, free fluid, or free air. The bowel is without evidence of obstruction or adjacent inflammatory changes. Bladder partially decompressed around a Zapien catheter and contains gas and significant hyperattenuating blood products/debris with underlying mass not excluded. No suspicious osseous lesions. CT/CT abdomen pelvis wo con IMPRESSION: 1. Bladder partially decompressed around a Zapien catheter and contains gas and significant hyperattenuating blood products/debris with underlying mass not excluded. Consider direct visualization. 2. Probable nodular atelectasis/scarring in the right lower lobe, although new from prior. Recommend follow-up noncontrast CT chest in 3-6 months. Electronically authenticated by: CHRISTIAN PICKERING Date: 04/28/2024 10:12
[2024-04-28] MEDS: LIDOCAINE 2% JELLY 10 ML UR (08:28)
[2024-04-28] MEDS: SODIUM CHLORIDE IRRIG SOLUTION 3,000 ML 3000 ML IRR ×3 (09:07→10:31)
[2024-04-28] MEDS: 0.9 % SODIUM CHLORIDE 500 ML IV (09:07)
[2024-04-28 09:17] LABS: Prothrombin Time 25.1 sec (9.0-11.6)
[2024-04-28 09:29] LABS: Lactate/Lactic Acid 1.6 mmol/L (0.4-2.0)
[2024-04-28 10:01] VITALS: BP 122/77; PULSE 88; O2SAT 98
[2024-04-28 11:38] VITALS: BP 112/88; PULSE 88; O2SAT 98
--- NOTE | 2024-04-28 12:11 | ED_ITS ---
HPI HPI - General Adult General Chief complaint: Urogenital-Male Stated complaint: DEPARTMENT OF MATHEMATICS CHAIR PROBLEM/ CONFUSION Time Seen by Provider: 04/28/24 07:13 Source: patient Mode of arrival: walk-in History of Present Illness HPI narrative: Patient presents to ED for continued hematuria and possible Villarreal catheter blockage. He was seen here last night for similar. Patient has an indwelling Villarreal catheter due to a history of bladder cancer is brought back To the emergency department by his daughter for repeat evaluation of urinary retention. The patient started having some bloody drainage from the catheter earlier in the evening with passage of a small amount of clotted material and then has not been able to urinate since around 8 PM. They were able to clear him up in the ER and able to discharge him home last night. He has not had a fever. He follows up with Dr. Samuels. He is on Coumadin after he recently had a heart attack. The patient states that he tested positive for COVID-19 at home 2 days ago. He is not having any chest pain or shortness of breath. He nausea vomiting or diarrhea. Daughter reports he was slightly combative and confused this morning but he is seeming more lucid now. She states that the Villarreal catheter seem to stop draining already at home and clotted off again and she was concerned because he was complaining of some pressure so they brought him back in for reevaluation. Related Data Home Medications ?Medication ?Instructions ?Recorded ?Confirmed albuterol sulfate 90 mcg/actuation 1 inh inhalation Q6H PRN 04/13/23 04/28/24 aerosol inhaler bronchospasm amlodipine 5 mg tablet 5 mg PO DAILY 07/30/23 04/28/24 amiodarone 200 mg tablet 200 mg PO Q12H 04/28/24 04/28/24 atorvastatin 80 mg tablet 80 mg PO DAILY 04/28/24 04/28/24 clopidogrel 75 mg tablet 75 mg PO DAILY 04/28/24 04/28/24 furosemide 40 mg tablet (Lasix) 40 mg PO DAILY 04/28/24 04/28/24 nitroglycerin 0.4 mg sublingual 0.4 mg sublingual Q5M PRN chest 04/28/24 04/28/24 tablet pain warfarin 2 mg tablet 2 mg PO DAILY 04/28/24 04/28/24 Allergies Allergy/AdvReac Type Severity Reaction Status Date / Time No Known Drug Allergies Allergy Verified 09/26/23 20:49 Opioid HPI Opioid Management Most Recent Opioid Data: Last Pain Scale 4 01/16/24 09:44 01/16/24 Review of Systems ROS Status of ROS 10 or more systems reviewed and unremark able except as noted in history and below [facility] Medical History (Updated 04/28/24 @ 11:24 by Lexi Antony DO) Bladder cancer ?C67.9 - Malignant neoplasm of bladder, unspecified (ICD-10) Social History Smoking status: Current every day smoker Little interest or pleasure in doing things: not at all Feeling down, depressed, or hopeless: not at all Exam Narrative Exam Narrative: General: alert, no acute distress Cardiovascular: regular rate and rhythm, normal peripheral perfusion. Respiratory: Lungs CTA, respirations non labored. Extremities: no deformity, no trauma. Neurological: oriented x 4, LOC appropriate for age. Urinary catheter in place with dark blood in the Villarreal. Large clots are passing. Constitutional Vital Signs, click to edit/add: Last Vital Signs Temp 98.2 F 04/28/24 07:06 Pulse 88 04/28/24 11:38 Resp 18 04/28/24 11:38 BP 112/88 04/28/24 11:38 Pulse Ox 98 04/28/24 11:38 O2 Del Method Room Air 04/28/24 07:06 Course Vital Signs Vital signs: Vital Signs Temperature 98.2 F 04/28/24 07:06 Pulse Rate 99 H 04/28/24 07:06 Respiratory Rate 18 04/28/24 07:06 Blood Pressure 120/67 04/28/24 07:06 Pulse Oximetry 99 04/28/24 07:06 Oxygen Delivery Method Room Air 04/28/24 07:06 Temperature 98.2 F 04/28/24 07:06 Pulse Rate 88 04/28/24 11:38 Respiratory Rate 18 04/28/24 11:38 Blood Pressure 112/88 04/28/24 11:38 Pulse Oximetry 98 04/28/24 11:38 Oxygen Delivery Method Room Air 04/28/24 07:06 Medical Decision Making MDM Narrative Medical decision making narrative: Patient's Villarreal catheter was changed to a three-way catheter 24 Albanian by the nurse without any difficulty. Patient is on Plavix and Coumadin. Patient's INR is 2.6. Patient and family were instructed to hold the Coumadin for 2 days. Patient was manually irrigated as well as given 2 bags of CBI irrigation. His Villarreal catheter pinked up nicely and was much more clear prior to discharge. We discussed possible admission with the family but they do state that he gets severe and hospital delirium when he gets admitted and they would prefer to manage him at home if possible. Lactate normal white blood cell count normal, hemoglobin stable, creatinine slightly increased from his baseline. Patient was given some IV fluids here as well as the bladder irrigation. He was feeling better after CBI and stated his pain and pressure has gone away. Family and patient would like to go home. I spoke to Dr. Samuels to be looped him in on the progress of this patient and he is agreeable with plan for discharge home at this time. Of course patient was given strict instructions to return to ED if worsening symptoms or if the Villarreal catheter obstructs again. Follow-up with Dr. Samuels outpatient patient stable prior to discharge home. Family and patient comfortable with care plan for home Differential Diagnosis Differential Diagnosis: Hematuria, obstructed Villarreal catheter, sepsis Medical Records Medical records reviewed: Yes I reviewed the patient's medical records Lab Data Lab results reviewed: Yes I reviewed the patient's lab results Labs: Lab Results 04/28/24 04/28/24 Range/Units 07:35 08:34 PT 25.1 H (9.0-11.6) sec INR 2.60 Sodium 141 (136-145) mmol/L Potassium 3.7 (3.5-5.1) mmol/L Chloride 105 (98-107) mmol/L Carbon Dioxide 20.1 L (21.0-32.0) mmol/L Anion Gap 19.6 BUN 38.0 H (7.0-18.0) mg/dL Creatinine 2.48 H (0.70-1.30) mg/dL Est GFR ( Amer) 31 L (>=60 mL/min/1.73m^2) Est GFR (Non-Af Amer) 25 L (>=60 mL/min/1.73m^2) BUN/Creatinine Ratio 15.3 Glucose 137 H (74-106) mg/dL Lactate 1.6 (0.4-2.0) mmol/L Calcium 8.4 L (8.5-10.1) mg/dL Imaging Data CT scan - abdomen: Radiologist's impression: ITS Impressions Abdomen/Pelvis CT 04/28/24 08:02 IMPRESSION: 1. Bladder partially decompressed around a Villarreal catheter and contains gas and significant hyperattenuating blood products/debris with underlying mass not excluded. Consider direct visualization. 2. Probable nodular atelectasis/scarring in the right lower lobe, although new from prior. Recommend follow-up noncontrast CT chest in 3-6 months. Electronically authenticated by: CHRISTIAN PICKERING Date: 04/28/2024 10:12 Discharge Plan Discharge Chief Complaint: Urogenital-Male Clinical Impression: Hematuria Patient Disposition: Home, Self-Care Time of Disposition Decision: 11:24 Condition: Fair Mode of Transportation: Private Vehicle Prescriptions / Home Meds: No Action clopidogrel 75 mg tablet 75 mg PO DAILY warfarin 2 mg tablet 2 mg PO DAILY albuterol sulfate 90 mcg/actuation HFA aerosol inhaler 1 inh INHALATION Q6H PRN (Reason: bronchospasm) amlodipine 5 mg tablet 5 mg PO DAILY amiodarone 200 mg tablet 200 mg PO Q12H atorvastatin 80 mg tablet 80 mg PO DAILY furosemide [Lasix] 40 mg tablet 40 mg PO DAILY nitroglycerin 0.4 mg tablet, sublingual 0.4 mg sublingual Q5M PRN (Reason: chest pain) Print Language: Angolan Instructions: Hematuria (ED) Referrals: NICHOLAS EMERSON [Primary Care Provider] - 1 week Discharge Date/Time: 04/28/24 11:39
== END 2024-04-28 11:39 | disposition home or self-care (01) ==
PROVIDERS: Emergency Provider Emergency Medicine; PCP Family Medicine
DX: T83.098A Other mechanical complication of other urinary catheter, initial encounter (principal); R31.9 Hematuria, unspecified; R33.9 Retention of urine, unspecified; Z79.01 Long term (current) use of anticoagulants; I25.2 Old myocardial infarction; C67.9 Malignant neoplasm of bladder, unspecified; F17.200 Nicotine dependence, unspecified, uncomplicated; Z79.02 Long term (current) use of antithrombotics/antiplatelets
CPT/HCPCS: 36415; 74176; 80048; 80053; 81001; 83605; 85025; 85610; 87040; 99284

== ENCOUNTER 2024-05-27 00:20 | Outpatient (RCR) | payer MEDICARE, OTHER, SELFPAY | END 2024-06-25 15:23 | disposition home or self-care (01) | LOC: MM 00:20 | PROVIDERS: PCP Family Medicine; Visit Provider Internal Medicine | DX: Z51.81 Encounter for therapeutic drug level monitoring (principal); Z79.01 Long term (current) use of anticoagulants; I48.0 Paroxysmal atrial fibrillation | CPT/HCPCS: 85610; G0463 ==

== ENCOUNTER 2024-05-27 07:12 | Outpatient (RCR) | payer MEDICARE, OTHER, SELFPAY ==
--- NOTE | 2024-03-24 12:22 | CR1_ITS ---
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
--- NOTE | 2024-03-31 12:54 | CR1_ITS ---
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
--- NOTE | 2024-04-26 11:35 | CR1_ITS ---
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
--- NOTE | 2024-05-25 07:42 | CR1_ITS ---
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
== END 2024-05-27 07:13 | disposition home or self-care (01) ==
LOC: CR 07:12
PROVIDERS: PCP Family Medicine; Visit Provider Internal Medicine Cardiovascular Disease
DX: I25.10 Atherosclerotic heart disease of native coronary artery without angina pectoris (principal); Z98.61 Coronary angioplasty status; I21.3 ST elevation (STEMI) myocardial infarction of unspecified site
CPT/HCPCS: 93798

== ENCOUNTER 2024-06-02 20:27 | Emergency (ER) | payer MEDICARE, OTHER, SELFPAY ==
[2024-06-02 20:50] VITALS: BP 123/73; PULSE 86; TEMP 37.3; O2SAT 97; BMI 26.1
--- NOTE | 2024-06-02 21:52 | ED.MALEGU1 ---
HPI - Male Genitourinary General Chief complaint: Abdominal Pain Stated complaint: catheter bag not filling Time Seen by Provider: 06/02/24 21:14 Source: patient Mode of arrival: walk-in History of Present Illness HPI Narrative: 78-year-old male presents for his catheter bag not draining. He has had a catheter for 2 years and this particular catheter was placed yesterday at his urologist's office. He does not complain of abdominal pain and has not had a fever. It stopped draining this afternoon. Related Data Home Medications ?Medication ?Instructions ?Recorded ?Confirmed albuterol sulfate 90 mcg/actuation 1 inh inhalation Q6H PRN 04/13/23 04/28/24 aerosol inhaler bronchospasm amlodipine 5 mg tablet 5 mg PO DAILY 07/30/23 04/28/24 amiodarone 200 mg tablet 200 mg PO Q12H 04/28/24 04/28/24 atorvastatin 80 mg tablet 80 mg PO DAILY 04/28/24 04/28/24 clopidogrel 75 mg tablet 75 mg PO DAILY 04/28/24 04/28/24 furosemide 40 mg tablet (Lasix) 40 mg PO DAILY 04/28/24 04/28/24 nitroglycerin 0.4 mg sublingual 0.4 mg sublingual Q5M PRN chest 04/28/24 04/28/24 tablet pain warfarin 2 mg tablet 2 mg PO DAILY 04/28/24 04/28/24 Allergies Allergy/AdvReac Type Severity Reaction Status Date / Time No Known Drug Allergies Allergy Verified 09/26/23 20:49 Review of Systems ROS Narrative A ten point review of systems is negative except as noted above. PFSH [facility] Medical History (Updated 06/02/24 @ 23:18 by Richard Pryor MD) Bladder cancer ?C67.9 - Malignant neoplasm of bladder, unspecified (ICD-10) Social History Smoking status: Current every day smoker Little interest or pleasure in doing things: not at all Feeling down, depressed, or hopeless: not at all Exam Narrative Exam Narrative: Nurses note and vital signs reviewed and patient is not hypoxic. General: The patient appears well and in no apparent distress. Patient is resting comfortably on cart. Skin: Warm, dry, no pallor noted. There is no rash noted. Head: Normocephalic, atraumatic Eye: Normal conjunctiva, no drainage Ears, Nose, Mouth, and Throat: oral mucosa is moist. Nares patent. Cardiovascular: Not tachycardic Respiratory: Patient is in no distress, no accessory muscle use, lungs are clear to auscultation, no wheezing, rales or rhonchi Back: non-tender GI: Soft and nontender Musculoskeletal: The patient has no evidence of calf tenderness, no pitting edema, symmetrical pulses noted bilaterally Neurological: A&O, normal speech Psychiatric: Cooperative Constitutional Vital Signs, click to edit/add: Last Vital Signs Temp 99.1 F 06/02/24 20:50 Pulse 86 06/02/24 20:50 Resp 18 06/02/24 20:50 BP 123/73 06/02/24 20:50 Pulse Ox 97 06/02/24 20:50 O2 Del Method Room Air 06/02/24 20:50 Course Vital Signs Vital signs: Vital Signs Temperature 99.1 F 06/02/24 20:50 Pulse Rate 86 06/02/24 20:50 Respiratory Rate 18 06/02/24 20:50 Blood Pressure 123/73 06/02/24 20:50 Pulse Oximetry 97 06/02/24 20:50 Oxygen Delivery Method Room Air 06/02/24 20:50 Temperature 99.1 F 06/02/24 20:50 Pulse Rate 86 06/02/24 20:50 Respiratory Rate 18 06/02/24 20:50 Blood Pressure 123/73 06/02/24 20:50 Pulse Oximetry 97 06/02/24 20:50 Oxygen Delivery Method Room Air 06/02/24 20:50 MDM - Male Genitourinary MDM Narrative Medical decision making narrative: We attempted to irrigate the existing Villarreal catheter. It was flushed through but nothing drained. It was removed and clots were noticed at the tip of it. A new catheter was placed and is draining normally and he is able to be discharged home. Treatment diagnosis and follow-up were discussed with the patient and his family. Differential Diagnosis Differential diagnosis: Likely acute retention of urine and other (Plugged Villarreal catheter) Discharge Plan Discharge Chief Complaint: Abdominal Pain Clinical Impression: Acute urinary retention Patient Disposition: Home, Self-Care Time of Disposition Decision: 23:18 Condition: Good Mode of Transportation: Private Vehicle Prescriptions / Home Meds: No Action clopidogrel 75 mg tablet 75 mg PO DAILY warfarin 2 mg tablet 2 mg PO DAILY albuterol sulfate 90 mcg/actuation HFA aerosol inhaler 1 inh INHALATION Q6H PRN (Reason: bronchospasm) amlodipine 5 mg tablet 5 mg PO DAILY amiodarone 200 mg tablet 200 mg PO Q12H atorvastatin 80 mg tablet 80 mg PO DAILY furosemide [Lasix] 40 mg tablet 40 mg PO DAILY nitroglycerin 0.4 mg tablet, sublingual 0.4 mg sublingual Q5M PRN (Reason: chest pain) Print Language: Serbian Instructions: Villarreal Catheter Placement and Care (ED), How to Change a Catheter Drainage Bag (DC) Referrals: NICHOLAS EMERSON [Primary Care Provider] - 1 week
[2024-06-02] MEDS: LIDOCAINE 2% JELLY 10 ML UR (22:21)
== END 2024-06-02 23:25 | disposition home or self-care (01) ==
PROVIDERS: Emergency Provider Emergency Medicine; PCP Family Medicine
DX: R33.9 Retention of urine, unspecified (principal); F17.200 Nicotine dependence, unspecified, uncomplicated; T83.098A Other mechanical complication of other urinary catheter, initial encounter
CPT/HCPCS: 51702; 51798; 99284

== ENCOUNTER 2024-06-17 04:08 | Emergency (ER) | payer MEDICARE, OTHER, SELFPAY ==
[2024-06-17 04:14] VITALS: BP 129/74; PULSE 91; TEMP 36.5; O2SAT 98; BMI 26.3
--- OUTSIDE RECORDS SUMMARY | 2024-06-17 04:16 | XMS_ITS | CCD ---
Author Organization [facility] Care Team Providers Care Apartment Assistant Manager Name Role Phone Stanley Emerson Unavailable Unavailable Unavailable STANLEY EMERSON Primary Care Physician Unavail able MD Stanley Emerson Primary Care Provider MD Taz Barnes Admit Provider MD Margarito Valentine Other Provider MD Janice Gonzalez Other Provider DO Bernabe Cr Attending Provider [phone] MD Margarito Valentine Attending Provider [phone] MD Margarito Valentine Admit Provider [phone] Celia Griffin Unavailable Margarito Valentine Unavailable [phone] MOMO Omalley Attending Provider MD Stanley Emerson Primary Care Provider MD Taz Barnes Admit Provider MD Margarito Valentine Other Provider MD Janice Gonzalez Other Provider DO Bernabe Cr Attending Provider MD Margarito Valentine Attending Provider MD Margarito Valentine Admit Provider [phone] MOMO Omalley Attending Provider Carlene Kasper Unavailable [...] Al, Dr. Teo Poon Referring Araceli vailable Samanthayer, Dr. Stanley Mercado Primary Care Unava ilable Hemeyer, Dr. Stanley Mercado Primary Care Unava ilable Al, Dr. Teo Poon Referring Araceli vailable Al, Dr. Teo Poon Attending Araceli vailable Al, Dr. Teo Poon Attending Araceli vailable Hemeyer, Dr. Stanley Mercado Primary Care Elliot Emerson, Dr. Stanley Mercado Primary Care Unava ilable Divya, Dr. Teo Poon Attending Araceli vailable Divya, Dr. Teo Poon Attending Araceli vailadiana Emerson, Dr. Stanley Mercado Primary Care Unava MD Stanley Gomez Primary Care Provider MD Celia Griffin Attending Provider MD Teo [...] Other Provider MD Jerrell Gonsales Other Provider [phone] MD Mary Ellen Zambrano Other Provider [...] Provider WATSON Beard Other Provider WATSON Man Other Provider MD Joaquim Mayo Other Provider MD Shane Durham Other Provider DO Tico Whitehead Other Provider DO Alonso Maher Other Provider MD Humberto Bonds P Other Provider MD Chi Smith Other Provider WATSON Najera Other Provider MD Dana Haddad Other Provider MD Emmanuel Silverman Other Provider ROCIO Moore Other Provider Unavailable Stanley Emerson MD Primary Care Provider Stanley Emerson MD Unavailable [phone] Stanley Emerson MD Primary Care Provider Black NEONATAL SURGEONDora Unavailable WATSON Bailey Attending Provider WATSON Truong Other Provider Stanley Emerson MD Unavailable Stanley Emerson MD Primary Care Provider JACOBS Katia R Attending Unavailable JACOBS, Katia R [...] Admitting Unavailable JACOBS, Katia R Attending Unavailable Stanley Emerson MD Unavailable Stanley Emerson MD Primary Care Provider [phone] JACOBS, Katia R Attending Unavailable JACOBS, Katia R Attending Unavailable Galea, Fabi J Attending Unavailable Orzech, Blanca X Attending Unavailable Orzech, Blanca X Attending Unavailable Galea, Fabi J Attending Unavailable JACOBS, Katia R Admitting Unavailable AJCOBS, Katia R Attending Unavailable HEMEJOSE CRUZ, STANLEY Rich Attending Unavailable HEMEYER, STANLEY Rich Attending Unavailable HEMEYER, STANLEY Rich Attending Unavailable HEMEYER, STANLEY Rich Attending Unavailable HEMEYER, STANLEY Rich Attending Unavailable HEMEYER, STANLEY Rich Attending Unavailable HEMEYER, STANLEY Rich Attending Unavailable HEMEYER, STANLEY Rich Attending Unavailable HEMEYER, STANLEY Rich Attending Unavailable Hemejose cruz, Stanley Rich Primary Care Unavailable Teo Al Attending Unavailable Al, Bruce Admitting Unavailable LeighannttyWilly Admitting Unavailable DittyWilly Attending Unavailable Hemeyer, Edward J Primary Care Unavailable Rosalie Bailey Admitting Unavailable Rosalie Bailey Attending Unavailable Hemeyer, Edward J Primary Care Unavailable Hemeyer, Edward J Primary Care Unavailable Al, Bruce Admitting Unavailable Al, Bruce Attending Unavailable Hemeyer, Edward J Primary Care Unavailable Ledy Randle Consulting Unavailable Nas Pruett Admitting Unavailable Nas Pruett Attending Unavailable Thu Alvarez Consulting Unavailable Jen Delgado [...] Hernandez Consulting Unavailable Valdo Sandra Consulting Unavailable oRb Almazan Consulting Unavailab Danielito Campoverde Consulting Unavailable Seb Bonds Consulting Unavailable Basilio Tam Consulting Unavailable Reji Garcia Consulting Unavailable Lydia Rene Consulting Unavailable Lucas Dumas Consulting Unavailable Cortney Watkins Consulting Unavailable Jakob Lomax Consulting Unavailable Ilanomaisabel Obayneshah Andrea Consulting Unavailable Yaz Beard Consulting Unavailable Venus Man Consulting Unavailable Joaquim Mayo Consulting Unavailable Shane Durham Consulting Unavailable Tico Whitehead Consulting Unavailable Alonso Maher Consulting Unavailable Humberto Bonds Consulting Unavailable Chi Smith Consulting Unava rosaable Chen Najera Consulting Unavailable Dana Haddad Consulting Unavailable Emmanuel Silverman Consulting Unavailable Monisha Moore Consulting Unavailable Myesha Feliz Consulting Unavailable Rogelio Rai Consulting Unavailable Heaven Truong Consulting Unavailable Mckay Yeboah Jr Consulting UnavailRyley Parra Consulting Margarito Carreno Admitting UnavailMargarito Lara Attending UnavailStanley Paulino Primary Care Unavailable TEO AL Attending Unavailable STANLEY EMERSON Primary Care Unavailable TEO AL Referring Unavailable STANLEY EMERSON Primary Care Unavailable TEO AL Attending Unavailable TEO AL Referring Unavailable STANLEY EMERSON Primary Care Unavailable Blanca Boles Attending Unavailable Fabi Gomez Attending Unavailable MOMO OMALLEY Attending Unavail le Allergies Allergy Classification Reported Allergen(s) Allergy Type Date of Onset Reaction(s) Facility (3 sources) No Known Medication Allergies; Translations: [No Known Medication Allergies] Propensity to adverse reactions (disorder) [facility] Repository Medications Current Medications Medication Drug Class(es) [...] take 1 tablet by mouth every hour [place] 325 mg-7.5 mg oral tablet 1 tab(s), Oral, Once, 1 tab(s), Refill(s) 0, Take 1 hour prior to procedure, [facility]/pharmacy #[id number], 187, cm, 03/11/23 13:44:00 EDT, Height/Length Dosing, 93, kg, 03/11/23 13:44:00 EDT, Weight Dosing Start Date: 05/06/23 Status: Ordered [id number] 200 actuat albuterol 0.09 mg/actuat metered dose [...] Ordered amiodarone hydrochloride 200 mg oral tablet (20 sources) Antiarrhythmic Start: 02-10-2024 End: 02-09-2025 amiodarone 200 mg Tab 200 mg = 1 tab(s), Refills(s) 0 Start Date: 04/06/24 Status: Ordered Start: 01-23-2024 End: 03-08-2024 take 200 mg by mouth twice daily Amiodarone Discontinued 200 MG PO Twice daily 60 January 23, 2024 12:00am March 08, 2024 12:52pm amLODIPine 5 mg oral tablet (20 sources) Dihydropyridine Calcium Channel Maldonado Start: 11-12-2024 take 5 mg by mouth twice daily [...] 01/23/2024 Active atorvastatin 80 mg oral tablet (20 sources) HMG-CoA Reductase Inhibitor Start: 01-16-2024 take 1 tablet by mouth once daily atorvastatin 80 mg Tab 80 mg = 1 tab(s), Oral, Daily, # 30 tab(s), Refills(s) 0 Start Date: 03/02/24 Status: Ordered ciprofloxacin 500 mg oral tablet (9 sources) Quinolone Antimicrobial Start: 04-06-2024 take 1 [...] procedure, # 6 tab(s), Refills(s) 0, Pharmacy: [facility]/pharmacy #[id number], 187, cm, 09/18/22 14:39:00 EDT, Height/Length Dosing, 93, kg, 09/18/22 14:39:00 EDT, Weight Dosing Start Date: 12/03/22 Status: Ordered Start: 07-25-2022 take 1 tablet by charlene th once daily Cipro 250 mg Tab 250 mg = 1 tab(s), Oral, Daily, Take 1 tablet the day before the procedure and 1 tablet after the procedure, # 2 tab(s), Refills(s) 0, Pharmacy: [facility]/pharmacy #[id number], 187, cm, 06/11/22 9:11:00 EST, Height/Length Dosing, 93.5, kg, 06/11/22 9:11:00 EST, W... Start Date: 07/25/22 Status: Ordered clopidogrel (12 sources) [id number] Platelet Inhibitor Start: 04-06-2024 clopi dogrel 75 mg, Refills(s) 0 Start Date: 04/06/24 Status: Ordered Start: 03-05-2024 clopidogrel (P lavix) 75 mg tablet Indications: Coronary artery disease involving [place] coronary artery of [place] heart without angina pectoris Patient will take 4 tablets ( 300mg) one time only, then will take one tablet daily 90 tablet 3 03/05/2024 Active take 1 tablet by charlene th once daily clopidogrel (Plavix) 75 MG tablet Take 75 mg by mouth Daily Active ferrous sulfate 140 mg extended release oral [...] take 1 tablet by mouth at mealti me ferrous sulfate 325 (65 Fe) MG tablet Take 325 mg by mouth in the morning. Take with meals. Active FIBER ADULT GUMMIES PO (14 sources) take 2 tablets by mouth once daily FIBER ADULT GUMMIES PO Take 2 tablets by mouth Daily Active furosemide 40 mg oral tablet (20 sources) Loop Diuretic Start: 02-04-2024 take 1 tablet by mouth once daily furosemide 40 mg Tab TAKE 1 TABLET BY MOUTH EVERY DAY Start Date: 03/02/24 Status: Ordered inulin 2000 mg chewable tablet (5 sources) Start: 12-31-2023 take 1 tablet by mouth once daily Inulin (Fiber Gummies) 2 gram tablet,chewable Active 2 GM PO Daily December 31, 2023 12:00am 24 hr metoprolol succinate 25 mg extended release oral tablet (20 sources) beta-Adrenergic Maldonado Start: 05-21-2024 End: 05-21-2025 take 1 tablet by mouth once daily metoprolol succinate XL (Toprol-XL) 25 mg 24 hr tablet Indications: Cardiomyopathy, ischemic Take 1 tablet (25 mg) by mouth once daily. Do not crush or chew. 90 tablet 3 05/21/2024 05/21/2025 Active Start: 06-10-2022 Metoprolol tar trate 50 mg Tab Refills(s) 0 Start Date: 06/10/22 Status: Ordered Start: 05-16-2022 End: 01-16-2024 take 50 mg by mouth twice daily Metoprolol Tartrate Discontinued 50 MG PO Twice daily May 16, 2022 1:00am January 16, 2024 2:11pm Multiple Vitamins-Minerals (Multivitamin Gummies Mens) chewable tablet (14 sources) Multiple Vitamin s-Minerals (Multivitamin Gummies Mens) chewable tablet Chew 1 tablet Daily Active multivitamin (Multiple Vitamins) tablet (3 sources) take 1 tablet by mouth once daily multivitamin (Multiple Vitamins) tablet Take 1 tablet by mouth once daily. Active Multivitamin preparation (20 sources) Start: 10-22-2023 take 1 tablet by mouth once daily Multivitamin Active 1 TAB PO Daily October 22, 2023 12:00am Start: 07-31-2022 multivitamin D aily, Refill(s) 0 Start Date: 07/31/22 Status: Ordered Multivitamin Act raji nitroglycerin 0.4 mg sublingual tablet (20 sources) Nitrate Vasodilator Start: 01-16-2024 nitroglycerin 0.4 [...] Daily, # 14 tab(s), Refills(s) 0, Pharmacy: [facility]/pharmacy #[id number], 187, cm, 06/10/23 13:43:00 EST, Height/Length Dosing, 93, kg, 03/11/23 13:44:00 EDT, Weight Dosing Start Date: 06/11/23 Status: Ordered Klor-Con (17 sources) Start: 04-06-2024 Klor-Con 20 mEq, Refills(s) [...] Spacer/Aero-Holding Chambers (BreatheRite Dulce Spacer Adult) misc (14 sources) Start: 02-17-2024 Spacer/Aero-Ho lding Chambers (BreatheRite Dulce Spacer Adult) misc Indications: Simple chronic bronchitis (CMS/HCC) 2 puffs 4 (four) times a day as needed (sob and cough) 1 each 02/17/2024 Active ticagrelor 90 mg oral tablet (16 sources) Start: 01-16-2024 take 1 tablet by mouth every twelve hours Brilinta 90 MG tablet Take 90 mg by mouth every 12 (twelve) hours 01/16/2024 Active Start: 01-16-2024 take 1 tablet by charlene twice daily Brilinta (ticagrelor) 90 mg oral tablet 90 mg = 1 tab(s), Oral, BID, Refills(s) 0 Start Date: 03/02/24 Status: Ordered Vitafusion Fiber Well + Probiotics Gummies oral tablet, chewable (4 sources) Start: 03-02-2024 take 1 tablet by mouth once daily Vitafusion Fiber Well + Probiotics Gummies oral tablet, chewable tab(s), Oral, Daily, Refill(s) 0 Start Date: 03/02/24 Status: Ordered warfarin sodium 2 mg oral tablet (20 sources) Vitamin K Antagonist Start: 04-06-2024 warfarin 2 mg Tab 2 mg = 1 tab(s), Refills(s) 0 Start Date: 04/06/24 Status: Ordered Start: 03-05-2024 End: 03-04-2025 warfarin (Coumadin) 5 mg tab let Indications: Paroxysmal atrial fibrillation (Multi) Take one tablet daily in the evening. Follow with [facility]. Patient will take coumadin and eliquis together for 3 days only 14 tablet 03/05/2024 03/04/2025 Active water 1000 mg/ml irrigation solution (9 sources) Start: 04-06-2024 sterile water irrigation solution Refill(s) 0 Start Date: 04/06/24 Status: Ordered Start: 10-03-2023 sterile water irrigation solution See Instructions, 500 mL, Refill(s) 1, Irrigate villarreal catheter as needed with 60 cc sterile water, [facility]/pharmacy #[id number], 187, cm, 10/03/23 14:11:00 EDT, Height/Length [...] 2022 11:01am benzonatate 100 mg oral capsule (3 sources) Non-narcotic Antitussive Start: 03-08-2024 End: 03-18-2024 [...] 14 tablet 02/17/2024 02/25/2024 Discontinued (Therapy completed) cephalexin 500 mg oral capsule (13 sources) Cephalosporin Antibacterial Start: 04-28-2024 End: 05-13-2024 take 1 capsule by mouth in the morning, then take 1 capsule by mouth in the evening, then take 1 capsule by mouth at bedtime cephalexin (Keflex) 500 MG capsule Take 500 mg by mouth in the morning and 500 mg in the evening and 500 mg before bedtime. 04/28/2024 05/13/2024 Discontinued (Therapy completed) Start: 10-03-2023 take 1 mg by mouth e very twelve hours Keflex 500 mg Cap mg cap(s), Oral, q12hr, Refills(s) 0 Start Date: 10/03/23 Status: Ordered End: 02-10-2024 take 1 capsule by mouth three times daily cephalexin (Keflex) 500 mg capsule Take 1 capsule (500 mg) by mouth 3 times a day. 02/10/2024 Discontinued (Other) doxycycline hyclate 100 mg oral capsule (3 sources) Tetracycline-class Drug Start: 03-08-2024 End: 03-19-2024 [...] tablet (20 sources) HMG-CoA Reductase Inhibitor Start: End: take 20 mg by mouth at bedtime Simvastatin Discontinued 20 MG PO Bedtime May 16, 2022 1:00am January 16, 2024 2:11pm Spacer/Aero-Holding Chambers device (13 sources) End: Spacer/Aero-Holding Chambers device every 8 (eight) hours. 05/13/2024 Discontinued (Therapy completed) Spacer/Aero-Hold ing Chambers device every 8 (eight) hours. Active spironolactone 25 mg oral tablet (12 sources) Aldosterone Antagonist Start: 10-03-2023 End: 01-23-2024 take 25 mg by mouth once daily Spironolactone Discontinued 25 MG PO Daily October 22, 2023 12:00am January 23, 2024 2:59pm vitamin b12 1 mg oral capsule (20 sources) Vitamin B12 Start: 05-22-2022 End: 10-22-2023 [...] Documented Da te Episodic/Chronic Acute myocardial infarction (16 sources) Acute myocardial infarction of anterior wall; Translations: [ST elevation (STEMI) myocardial infarction involving other coronary artery of anterior wall] Onset: 01-16-2024 01-16-2024 Chronic Administrative/social admission (11 sources) Other reduced mobility; Translations: [Impaired mobility [...] neoplasm of bladder, unspecified] Onset: 09-18-2022 Chronic Cancer; other and unspecified primary (19 sources) H/O: malignant neoplasm 12-10-2022 Episodic Cardiac dysrhythmias (20 sources) Atrial fibrillation; Translations: [Unspecified atrial fibrillation] Onset: 11-11-2022 Resolved: 05-04-2024 01-18-2024 Chronic Chronic kidney disease (20 sources) [...] Translations: [Ischemic cardiomyopathy] Onset: 01-16-2024 01-19-2024 Chronic Deficiency and other anemia (5 sources) Anemia co-occurrent and due to chronic kidney disease stage 3; Translations: [Anemia due to stage 3b chronic kidney disease (HCC)] Onset: 05-13-2024 05-13-2024 Chronic Deficiency and other anemia (7 sources) Anemia; Translations: [Anemia, unspecified] 10-22-2023 Episodic Deficiency and other anemia (6 sources) Anemia, unspecified; Translations: [Anemia, unspecified] 10-22-2023 Episodic Delirium, dementia, and amnestic and other cognitive disorders (20 sources) Dementia; Translations: [Unspecified dementia without behavioral disturbance] Onset: 06-11-2022 Resolved: 05-04-2024 Chronic Disorders of lipid metabolism (20 sources) Dyslipidemia; Translations: [Other and unspecified hyperlipidemia] Onset: 09-23-2022 Chronic Essential hypertension (20 sources) Hypertensive disorder; Translations: [Unspecified essential hypertension] Onset: 09-23-2022 09-11-2022 Chronic Genitourinary symptoms and ill-defined conditions (20 sources) Retention of urine; Translations: [Retention of urine, unspecified] Onset: 06-10-2022 Resolved: 05-13-2024 Episodic Hyperplasia of prostate (20 sources) Benign [...] SEQUELAE UNS CEREBROVASCULAR DZ] Onset: 09-23-2022 Chronic Occlusion or stenosis of precerebral arteries (14 sources) Atherosclerosis of right carotid artery; Translations: [Occlusion and stenosis of right carotid artery] Onset: 11-11-2022 11-11-2022 Chronic Other aftercare (1 source) director long term care (current) use of anticoagulants; Translations: [RESIDENTIAL CURRNT USE ANTICOAGULANTS] Onset: 09-08-2022 Episodic Other aftercare (7 sources) Taking high risk medication; Translations: [Other group home (current) drug therapy] Onset: 02-10-2024 02-10-2024 [...] [Hypotension, unspecified] 01-19-2024 Episodic Other circulatory disease (3 sources) Other [...] Episodic Other ear and sense organ disorders (14 sources) Hearing difficulty; Translations: [Unspecified hearing loss, bilateral] Onset: 11-11-2022 11-11-2022 Chronic Other ear and sense organ disorders (14 sources) Hearing loss; Translations: [Unspecified hearing loss, unspecified ear] Onset: 11-22-2019 12-19-2022 Chronic Other ear and sense organ disorders (2 sources) Mixed conductive and sensorineural hearing loss, bilateral; Translations: [Mixed conductive and sensorineural hearing loss, bilateral] 05-06-2024 Chronic Other gastrointestinal disorders (14 sources) Diarrhea; Translations: [Diarrhea, unspecified] 05-16-2022 Episodic Other gastrointestinal disorders (4 sources) Colonic lesion; Translations: [Disease of intestine, unspecified] 01-14-2024 Episodic Other injuries and conditions due to external causes (10 sources) Foreign body in bladder; Translations: [Foreign [...] Chronic Other nutritional; endocrine; and metabolic disorders (8 sources) Overweight in adulthood with body mass index of 25 or more but less than 30; Translations: [Overweight] Onset: 02-10-2024 02-10-2024 Episodic Other nutritional; endocrine; and metabolic disorders (18 sources) Overweight; Translations: [Overweight] Onset: 11-11-2022 11-11-2022 Episodic Other screening for suspected conditions (not mental disorders or infectious disease) (7 sources) Other specified abnormal findings of blood chemistry; Translations: [Prolonged QT interval] Onset: 05-16-2022 Episodic Pneumonia (except that caused by tuberculosis or sexually transmitted disease) (4 sources) Left lower zone pneumonia; Translations: [Pneumonia, unspecified organism] 02-17-2024 Episodic Residual codes; unclassified (20 sources) Tobacco user; Translations: [Tobacco use] 05-22-2022 Episodic Residual codes; unclassified (4 sources) Tobacco use; Translations: [Tobacco use disorder] 05-22-2022 Episodic Residual codes; unclassified (7 sources) History of cardiovascular surgery; Translations: [Other specified postprocedural states] 09-18-2023 Episodic Residual codes; unclassified (4 sources) Delirium; Translations: [Disorientation, unspecified] 01-23-2024 Episodic Screening and history of mental health and substance abuse codes (20 sources) Ex-smoker; Translations: [Personal history of tobacco use] Onset: 09-23-2022 02-10-2024 Episodic Comment on above: 05/17/23 quit; Transient cerebral ischemia (20 sources) Transient cerebral [...] [Abdominal aortic aneurysm, without rupture, unspecified] Onset: 01-16-2024 Unclassified (1 source) Abdominal aortic aneurysm, without rupture, unspecified (CMS-HCC); Translations: [Abdominal aortic aneurysm, without rupture, unspecified (CMS-HCC)] Onset: 08-11-2023 Urinary tract infections (19 sources) Urinary tract infectious disease; Translations: [Urinary tract infection, site not specified] Onset: 09-16-2022 05-16-2022 Episodic Viral infection (4 sources) COVID-19; Translations: [COVID-19] Onset: 01-04-2022 Past or Other Problems Problem Classification Problem Date Documented Da te Episodic/Chronic Acute and unspecified renal failure (20 sources) Acute renal failure syndrome; Translations: [Acute kidney failure, unspecified] Onset: 05-16-2022 Resolved: 12-19-2022 Episodic Cancer of bladder (19 sources) History of malignant neoplasm of bladder; Translations: [Personal history of malignant neoplasm of bladder] Onset: 12-10-2022 Resolved: 12-19-2022 Episodic Coronary atherosclerosis and other heart disease (20 sources) Stented coronary artery; Translations: [Presence of coronary angioplasty implant and graft] Onset: 01-16-2024 Resolved: 05-13-2024 01-19-2024 Episodic Fluid and electrolyte disorders (20 sources) Hyperkalemia; Translations: [Metabolic acidosis] Onset: 05-16-2022 Resolved: 05-13-2024 06-10-2022 Episodic Malaise and fatigue (4 sources) Other fatigue; Translations: [OTHER FATIGUE] Onset: 05-15-2022 Episodic Mood disorders (14 sources) Mood disorders Onset: 05-12-2023 Resolved: 05-13-2024 05-12-2023 Nausea and vomiting (1 source) Vomiting, unspecified; Translations: [VOMITING UNSPECIFIED] Onset: 05-23-2022 Episodic Neoplasms of unspecified nature or uncertain behavior (20 sources) Neoplasm of unspecified behavior of bladder; Translations: [Neoplasm of bladder] Onset: 09-08-2022 Episodic Nutritional deficiencies (20 sources) Cobalamin deficiency; Translations: [Deficiency of other specified B group vitamins] Onset: 10-06-2023 05-22-2022 Episodic Other aftercare (3 sources) Other group home (current) drug therapy; Translations: [OTH 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 CURRENT DRUG THERAPY] Onset: 09-23-2022 Episodic Other aftercare (1 source) director long term care (current) use of aspirin; Translations: [RESIDENTIAL 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] Onset: 05-22-2022 Episodic Other aftercare (16 sources) Polypharmacy ; Translations: [Other terminal worker (current) drug therapy] Onset: 12-08-2020 12-19-2022 Episodic Other circulatory disease (2 sources) Personal history of other diseases of the circulatory system; Translations: [Personal history of other diseases of the circulatory system] Onset: 01-16-2024 Episodic Other circulatory disease (5 sources) Hypotension, unspecified; Translations: [Hypotension, unspecified] Onset: 01-16-2024 01-23-2024 Episodic Other circulatory disease (14 sources) H/O: cardiovascular disease; Translations: [Personal history of other diseases of the circulatory system] Onset: 02-22-2016 Resolved: 12-19-2022 12-19-2022 Episodic Other diseases of kidney and ureters (20 sources) Bilateral hydronephrosis ; Translations: [Unspecified hydronephrosis] Onset: 10-06-2023 05-22-2022 Episodic Other diseases of veins and lymphatics (14 sources) Venous insufficiency of leg; Translations: [Venous insufficiency (chronic) (peripheral)] Onset: 11-11-2022 11-11-2022 Episodic Other gastrointestinal disorders (5 sources) Diarrhea, unspecified; Translations: [Diarrhea] Onset: 05-23-2022 05-22-2022 Episodic Other nervous system disorders (14 sources) White matter disease; Translations: [White matter disease, unspecified] Onset: 11-11-2022 11-11-2022 Episodic Other nutritional; endocrine; and metabolic disorders (3 sources) Body mass index (BMI) 26.0-26.9, adult; Translations: [BODY MASS INDEX BMI 26.0-26.9 ADULT] Onset: 09-23-2022 Episodic Other nutritional; endocrine; and metabolic disorders (1 source) Anorexia; Translations: [ANOREXIA] Onset: 05-23-2022 Episodic Other nutritional; endocrine; and metabolic disorders (1 source) Abnormal weight loss; Translations: [ABNORMAL WEIGHT LOSS] Onset: 05-23-2022 Episodic Residual codes; unclassified (8 sources) Other specified postprocedural states; Translations: [Other postprocedural status] Onset: 09-16-2022 Episodic Residual codes; unclassified (1 source) Chills (without fever); Translations: [CHILLS WITHOUT FEVER] Onset: 05-23-2022 Episodic Residual codes; unclassified (5 sources) Disorientation, unspecified; Translations: [Other alteration of consciousness] Onset: 01-16-2024 01-23-2024 Episodic Residual codes; unclassified (1 source) Other specified health status; Translations: [Other specified health status] Onset: 01-16-2024 Episodic Substance-related disorders (16 sources) Nicotine dependence, cigarettes, uncomplicated; Translations: [Smoker] Onset: 02-23-2015 Resolved: 05-04-2024 12-19-2022 Chronic Comment on above: 1/2 dozen cigarettes ; Unclassified (3 sources) Abdominal aortic aneurysm (AAA) without rupture, unspecified part I71.40 Unclassified (3 sources) Infrarenal abdominal aortic aneurysm (AAA) without rupture I71.43 Unclassified (17 sources) Onset: 12-31-2023 Resolved: 02-10-2024 02-10-2024 Unclassified (1 source) Abdominal aortic aneurysm, without rupture, unspecified (CMS-HCC); Translations: [Abdominal aortic aneurysm, without rupture, unspecified (CMS-HCC)] Onset: 05-21-2024 Results Test Name Value Interpretation Reference Range Facility Urology Office/Clinic Noteon 06-07-2024 Urology Office/Clinic Note Urology Office/Clinic Note HPI Staff 4 wk cath change. History of Present Illness I have reviewed and verified the staff HPI to be accurate for this encounter. Portions of this record may have been created with voice recognition artificial intelligence software, specifically Rocketick, Takipi and or ShieldEffect. Substitutions may have occurred due to the inherent limitations of voice recognition and artificial intelligence software. Physical Exam General: Well developed, well nourished, in no acute distress. Here w/ today who does assist in providing some of his history. Assessment/Plan PRW pt 1. Gross hematuria (R31.0: Gross hematuria) [facility] ER 04/28/2024 with complaints of a clogged catheter. He was irrigated at that time with numerous clots, required CBI x 2 bags. Urine not suspicious for infection, discharged with Villarreal in place. Patient/ do not recall any trauma to the Villarreal, denies symptoms of UTI. Urine in office today is clear, yellow. Denies any recurrence of hematuria since. Patient is anticoagulated on Coumadin daily Advised to be mindful of catheter tubing, prevent trauma. Increase fluid intake, avoid bladder irritants. ER for any significant pain, issues with draining of catheter, significant clots, urine that is more low to black in color. Patient and verbalized understanding. -Continue to monitor 2. Urinary retention (R33.9: Retention of urine, unspecified) cath change in office today see adhoc 3. BPH with urinary obstruction (N40.1: Benign prostatic hyperplasia with lower urinary tract symptoms) s/p Rezum 06/10/2023 s/p cysto 04/06/24 - obstructive prostatic urethra, long lateral lobes. Patient has been catheter dependent since resume, not currently taking any prostate or bladder medications Not addressed in today's visit 4. History of bladder cancer (Z85.51: Personal history of malignant neoplasm of bladder) Original TURBT/extraction of 2 bladder calculi 09/12/22 - Noninvasive papillary urothelial carcinoma, low grade. Invasion is not recognized. A small fragment of detrusor muscle is present in the specimen. s/p cysto 04/06/24 -obstructive prostatic urethra, long lateral lobes. Bladder without tumors or stones. Severe trabeculation (3), open text diffusely. 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 Medications Albuterol (Eqv-ProAir HFA) 90 mcg/inh inhalation aerosol amiodarone 200 mg Tab, 200 mg= 1 tab(s) amlodipine, 5 mg, Oral, BID atorvastatin 80 mg Tab, 80 mg= 1 tab(s), Oral, Daily Brilinta (ticagrelor) 90 mg oral tablet, 90 mg= 1 tab(s), Oral, BID Cipro 500 mg Tab, 1 tab(s), Oral, Daily clopidogrel, 75 mg Eliquis 2.5 mg oral tablet ferrous sulfate (as elemental iron) 45 mg oral tablet, extended release, 45 mg= 1 tab(s), Oral, Daily furosemide 40 mg Tab Klor-Con, 20 mEq multivitamin, Daily nitroglycerin 0.4 mg sublingual Tab, 0.4 mg= 1 tab(s), SubLingual, q5min, PRN sterile water irrigation solution, See Instructions, 5 refills sterile water irrigation solution Vitafusion Fiber Well + Probiotics Gummies oral tablet, chewable, Oral, Daily warfarin 2 mg Tab, 2 mg= 1 tab(s) Allergies No Known Allergies No Known Medication Allergies Social History Alcohol Never., 04/06/2024 Substance Abuse Never., 04/06/2024 Tobacco 10 or more cigarettes (1/2 pack or more)/day in last 30 days Tobacco Use:. Cigarettes, 04/06/2024 Family History Bladder cancer: Brother. Immunizations Vaccine Date Status Comments influenza virus vaccine, inactivated 03/19/2024 Recorded pneumococcal 20-valent conjugate vaccine 05/28/2023 Recorded influenza virus vaccine, inactivated 03/26/2023 Recorded SARS-CoV-2 (COVID-19) [id number] 03/29/2022 Recorded influenza virus vaccine, inactivated 03/16/2022 Recorded influenza virus vaccine, inactivated 03/06/2022 Recorded SARSCoV2 mRNA (more content not included)... Normal [facility] Comment on above: Result Comment: Elec tronically Signed By: TC Boles APRN, Blanca Hadley\.br\Date and Time Signed: 06/07/24 10:43 EST Ambulatory Visit Summaryon 0 06-01-2024 Ambulatory Visit Summary Ambulatory Visit Summary ALEX ANDERSON :1945 Visit Date:06/01/2024 Ambulatory Visit Instructions Your Diagnosis Gross hematuria Urinary retention Your Care Team Attending Physician - TC Boles APRN, Blanca Hadley Primary Care Physician - IDANIA CASILLAS, STANLEY [...] next Scheduled Follow-Up Appointments Friday 10:00 AM EST With: HEATHER OMALLEY PA-C Where: [facility] [address] [place] [address] [place] [address]- Friday 2:00 PM EDT With: Katia JACOBS MD Where: [facility] [address] [facility] [place] [address]- Medications What How Much When Instructions Unchanged albuterol (Albuterol (Eqv-ProAir HFA) 90 mcg/ inh inhalation aerosol) Unchanged amiodarone (amiodarone 200 mg Tab) 1 Tablets Unchanged amlodipine 5 Milligram By Mouth 2 times a day Unchanged apixaban (Eliquis 2.5 mg oral tablet) Unchanged atorvastatin (atorvastatin 80 mg Tab) 1 Tablets By Mouth Every day Unchanged bacillus coagulans-inulin (Vitafusion Fiber Well + Probiotics Gummies oral tablet, chewable) By Mouth Every day Unchanged ciprofloxacin (Cipro 500 mg Tab) 1 Tablets By Mouth Every day Unchanged clopidogrel 75 Milligram Unchanged ferrous sulfate (ferrous sulfate (as elemental iron) 45 mg oral tablet, extended release) 1 Tablets By Mouth Every day Unchanged furosemide (furosemide 40 mg Tab) TAKE 1 TABLET BY MOUTH EVERY DAY Unchanged multivitamin Every day Unchanged nitroglycerin (nitroglycerin 0.4 mg sublingual Tab) 1 Tablets Sublingual Every 5 minutes as needed for for chest pain Unchanged potassium chloride (Klor-Con) 20 Milliequivalent Unchanged sterile water (sterile water irrigation solution) Unchanged ticagrelor (Brilinta (ticagrelor) 90 mg oral tablet) 1 Tablets By Mouth 2 times a day Unchanged warfarin (warfarin 2 mg Tab) 1 Tablets Allergies No Known Allergies No Known Medication Allergies Problems Ongoing - Any problem that you are currently receiving treatment for. 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 Please share your experience with us by completing your survey. We appreciate your feedback and thank you for choosing us for your care. Normal [facility] Alanine Aminotransferaseon 1 07-22-2023 ALT [Catalytic activity/Vol] 12 U/L Normal 7-52 [facility] Comment on above: Performed By: #### B MP, AST, LIPID, ALT, TSH3, CBC #### [address] Aspartate Amino Transferaseo n 05-21-2024 AST [Catalytic activity/Vol] 13 U/L Normal 13-39 [facility] Comment on above: Performed By: #### B MP, AST, LIPID, ALT, TSH3, CBC #### [address] Basic Metabolic Panelon 04-26 Anion gap [Moles/Vol] 14.7 mmol/L Normal 6.0-15.0 [facility] Comment on above: Performed By: #### B MP, AST, LIPID, ALT, TSH3, CBC #### [place] [address] [place] Calcium [Mass/Vol] 9.1 mg/dL Normal 8.6-10.3 [facility] Comment on above: Performed By: #### B MP, AST, LIPID, ALT, TSH3, CBC #### [place] [address] [place] Chloride [Moles/Vol] 105 mmol/L Normal 98-107 [facility] Comment on above: Performed By: #### B MP, AST, LIPID, ALT, TSH3, CBC #### [place] [address] [place] CO2 [Moles/Vol] 27.8 mmol/L Normal 21.0-31.0 [facility] Comment on above: Performed By: #### B MP, AST, LIPID, ALT, TSH3, CBC #### [place] [address] [place] Creatinine [Mass/Vol] 2.20 mg/dL High 0.70-1.30 [facility] Comment on above: Performed By: #### B MP, AST, LIPID, ALT, TSH3, CBC #### [address] Estimated GFR 29.538 mL/Min Normal [facility] Comment on above: Performed By: #### B MP, AST, LIPID, ALT, TSH3, CBC #### [address] Glucose [Mass/Vol] 124 mg/dL High 70-100 [facility] Comment on above: Result Comment: [facility] Glucose Reference Range is dependent on time and content of last meal. Glucose of more than 200 mg/dL in a nonstressed, ambulatory subject supports the diagnosis of Diabetes Mellitus. ADA recommended reference range Performed By: #### B MP, AST, LIPID, ALT, TSH3, CBC #### [address] Potassium [Moles/Vol] 4.5 mmol/L Normal 3.5-5.1 [facility] Comment on above: Performed By: #### B MP, AST, LIPID, ALT, TSH3, CBC #### [address] Sodium [Moles/Vol] 143 mmol/L Normal 136-145 [facility] Comment on above: Performed By: #### B MP, AST, LIPID, ALT, TSH3, CBC #### [address] Urea nitrogen [Mass/Vol] 34 mg/dL High 7-25 [facility] Comment on above: Performed By: #### B MP, AST, LIPID, ALT, TSH3, CBC #### [address] Complete Blood Count Auto Di ffon 05-21-2024 Basophils (Bld) [#/Vol] 0.1 10*3/uL Normal 0.0-0.2 [facility] Comment on above: Result Comment: PERF ORMED BY: [place] [address] PATHOLOGIST MINUTE CLERK FOR [employer]IC [employer]FFIC MAGDA CRUZ M.D. Performed By: #### B MP, AST, LIPID, ALT, TSH3, CBC #### [address] Basophils/100 WBC (Bld) 1.0 % Normal . T jonatan [facility] Comment on above: Performed By: #### B MP, AST, LIPID, ALT, TSH3, CBC #### [address] Eosinophils (Bld) [#/Vol] 0.2 10*3/uL Normal 0.0-0.45 [facility] Comment on above: Performed By: #### B MP, AST, LIPID, ALT, TSH3, CBC #### [address] Eosinophils/100 WBC (Bld) 3.3 % Normal . [facility] Comment on above: Performed By: #### B MP, AST, LIPID, ALT, TSH3, CBC #### [address] Erythrocyte distribution width (RBC) [Ratio] 18.1 % High 12.0-14.8 [facility] Comment on above: Performed By: #### B MP, AST, LIPID, ALT, TSH3, CBC #### [address] Hematocrit (Bld) [Volume fraction] 30.3 % Low 38.8-50.0 [facility] Comment on above: Performed By: #### B MP, AST, LIPID, ALT, TSH3, CBC #### [address] Hemoglobin (Bld) [Mass/Vol] 9.5 g/dL Low 13.0-17.0 [facility] Comment on above: Performed By: #### B MP, AST, LIPID, ALT, TSH3, CBC #### [address] Lymphocytes (Bld) [#/Vol] 1.3 10*3/uL Normal 1.00-4.8 [facility] Comment on above: Performed By: #### B MP, AST, LIPID, ALT, TSH3, CBC #### [address] Lymphocytes/100 WBC (Bld) 22.2 % Normal . [facility] Comment on above: Performed By: #### B MP, AST, LIPID, ALT, TSH3, CBC #### [address] MCH (RBC) [Entitic mass] 23.3 pg Low 27.5-35.2 [facility] Comment on above: Performed By: #### B MP, AST, LIPID, ALT, TSH3, CBC #### [address] MCV (RBC) [Entitic vol] 74.4 fL Low 83.5-101 T [facility] Comment on above: Performed By: #### B MP, AST, LIPID, ALT, TSH3, CBC #### [address] Mean Corpuscular HGB Conc 31.3 g/dL Low 32.5-35.6 [facility] Comment on above: Performed By: #### B MP, AST, LIPID, ALT, TSH3, CBC #### [address] Monocytes (Bld) [#/Vol] 0.6 10*3/uL Normal 0.0-0.8 [facility] Comment on above: Performed By: #### B MP, AST, LIPID, ALT, TSH3, CBC #### [place] [address] [place] Monocytes/100 WBC (Bld) 10.2 % Normal . [facility] Comment on above: Performed By: #### B MP, AST, LIPID, ALT, TSH3, CBC #### [address] Neutrophils (Bld) [#/Vol] 3.8 10*3/uL Normal 1.8-7.7 [facility] Comment on above: Performed By: #### B MP, AST, LIPID, ALT, TSH3, CBC #### [address] Neutrophils/100 WBC (Bld) 63.3 % Normal . [facility] Comment on above: Performed By: #### B MP, AST, LIPID, ALT, TSH3, CBC #### [address] NRBC% 0.1 /100{WBC} Normal 0-0.5 [facility] Comment on above: Performed By: #### B MP, AST, LIPID, ALT, TSH3, CBC #### [address] Platelet mean volume (Bld) [Entitic vol] 8.1 fL Normal 6.6-10.1 [facility] Comment on above: Performed By: #### B MP, AST, LIPID, ALT, TSH3, CBC #### [address] Platelets (Bld) [#/Vol] 315 10*3/uL Normal 150-450 [facility] Comment on above: Performed By: #### B MP, AST, LIPID, ALT, TSH3, CBC #### [address] RBC (Bld) [#/Vol] 4.07 10*6/uL Normal 3.90-5.60 [facility] Comment on above: Performed By: #### B MP, AST, LIPID, ALT, TSH3, CBC #### [address] WBC (Bld) [#/Vol] 6.1 10*3/uL Normal 4.1-10.5 [facility] Comment on above: Performed By: #### B MP, AST, LIPID, ALT, TSH3, CBC #### [address] ECG 12 Leadon 05-21-2024 ECG revealed normal sinus rhythm, IVCD, diffuse repolarization abnormalities, septal myocardial infarction of undetermined age, abnormal ECG [facility] Work Phone: Lipid Panelon 05-21-2024 Cholesterol [Mass/Vol] 89 mg/dL Low 140-200 [facility] Comment on above: Result Comment: Chol less than 200 mg/dl low risk Chol 201-239 mg/dl borderline risk Chol 240 mg/dl and greater high risk Performed By: #### B MP, AST, LIPID, ALT, TSH3, CBC #### [facility] [address] [id number] [facility] Cholesterol in HDL [Mass/Vol] 41 mg/dL Normal 23-92 [facility] Comment on above: Result Comment: HDL CHOL ATP-III CLASSIFICATION Cardiovascular Risk HDL > or equal to 60 mg/dL LOW HDL < 40 mg/dL HIGH Performed By: #### B MP, AST, LIPID, ALT, TSH3, CBC #### [facility] [address] [place] [address] [facility] Cholesterol.total/Sonya sterol in HDL [Mass ratio] 2.2 {ratio} Normal <5.0 [facility] Comment on above: Performed By: #### B MP, AST, LIPID, ALT, TSH3, CBC #### [facility] [address] [place] [address] [facility] LDL Cholesterol,Calculated 34 mg/dL Normal 0-100 [facility] Comment on above: Result Comment: LDL ATP III CLASSIFICATION LDL less than 100 mg/dL Optimal LDL 100-129 mg/dL Near or above optimal LDL 130-159 mg/dL Borderline high LDL 160-189 mg/dL High LDL greater than 189 mg/dL Very high Performed By: #### B MP, AST, LIPID, ALT, TSH3, CBC #### [facility] [address] [place] [address] [place] Triglyceride w/Reflex 71 mg/dL Normal 0-149 [facility] Comment on above: Result Comment: TRIG ATP III CLASSIFICATION TRIG less than 150 mg/dL Normal TRIG 150-199 mg/dL Borderline high TRIG 200-500 mg/dL High TRIG greater than 500 mg/dL Very high Standard traceable to the Center for Disease Conrtrol and Prevention (CDC) test method. Performed By: #### B MP, AST, LIPID, ALT, TSH3, CBC #### [facility] [address] VLDL CHOLESTEROL 14 mg/dL Normal [facility] Comment on above: Performed By: #### B MP, AST, LIPID, ALT, TSH3, CBC #### [address] Thyroid Stimulating Hormoneo n 05-21-2024 TSH Qn 0.11 m[IU]/L Low 0.45-5.33 [facility] Comment on above: Result Comment: PERF ORMED BY: [place] [address] PATHOLOGIST MINUTE CLERK FOR BASIC [employer]FFIC MAGDA CRUZ M.D. Performed By: #### B MP, AST, LIPID, ALT, TSH3, CBC #### [address] [facility] Fish and Urine Cyt o ([facility])on 04-12-2024 UVFISH & UC Diagnosis Info Invalid Interpretation Code [facility] Comment on above: Result Comment: A:Ur ine,Bladder [...] with cytology and cystoscopy results. * CPT: 58336, 86961. Microscopic Notes - Microscopic Notes - Abnormal cells 9p21 deletions: Abnormal cells aneploid events: Total cells analyzed: 25 Hematuria: Gross Description Site ID:A color Colorless fixative Alcohol Received 90 mls of slightly cloudy colorless fluid with the patient's name and, Bladder Wash on the vial. Electronically signed by : on: 04/12/2024 16:53:27 Performed By: #### 1 [id number] #### [facility] [address] [place] [address] Ambulatory Visit Summaryon 1 06-06-2023 Ambulatory Visit Summary Ambulatory Visit Summary ALEX ANDERSON :1945 Visit Date:04/06/2024 Ambulatory Visit Instructions Your [...] [facility] [address] , [place] [address]- Medications What How Much When Instructions Unchanged [...] provider may (more content not included)... Normal [facility] Reminderson 04-06-2024 Reminders Reminders From: Dana Rivas To: [facility] - Keyshas Arlene; Sent: 02/20/2024 14:44:26 EDT Show up: 07/24/2024 14:44:00 EST Subject: Cysto/FISH/cytol, cath chng Due Date/Time: 08/16/2024 14:44:00 EDT Reminder/Recall Patient is due in September 2024 for 6 month cysto/fish/cytol, cath change (bt ck) Patient sched 10/05/24 Normal [facility] Fish and Urine Cyt o ([facility])on 04-06-2024 [facility] Method of Extraction Bladder Wash Normal [facility] Comment on above: Performed By: #### 1 [id number] #### [facility] [address] [place] [address] [facility] Number of Jars 1 Invalid Interpretation Code [facility] Comment on above: Performed By: #### 1 [id number] #### [facility] [address] [place] [address] [facility] Specimen Bladder Wash Normal [facility] Comment on above: Performed By: #### 1 [id number] #### [facility] [address] [place] [address] [facility] Type of Service Technical Only Normal [facility] Comment on above: Performed By: #### 1 [id number] #### [facility] [address] [place] [address] Urology Office/Clinic Noteon 04-06-2024 Urology Office/Clinic Note [...] going to start monthly villarreal changes. [1] [facility] ER on 09/15/22 due to catheter clogged. Pt was diagnosed w/ UTI and treated w/ Cipro 500 mg BID for x 7 days. Attempted urocuff, pt was unable to void, PVR 348 cc, cath placed 10/04/22. [2] Pt has been in the ER multiple times due to issues with Villarreal. Most recently, pt presented to [facility] ER 09/29/23 and 09/30/23 due [...] [facility] [address], [place] [address]- Additional Instructions: 6 mos surveillance cysto/bt ck/FISH/cytol Patient Education Indwelling Urinary Catheter Insertion, Care After Cancer Screening for Males I, Citlalli Rushing, personally scribed for Dr. Jacobs on 04/06/2024 11:35:18. . Documentation recorded by the scribe, Citlalli Rushing, accurately reflects the services(s) I performed and decisions made by me. Authenticated by Dr. Jacobs on 04/06/2024 11:36:29. Problem List/Past Medical History (more content not included)... Normal [facility] Comment on above: Result Comment: Elec tronically Signed By: Katia JACOBS MD\.br\Date and Time Signed: 04/06/24 11:36 EST\.br\Electronically Co-Signed By: Citlalli Rushing P\.br\Date and Time Co-Signed: 04/06/24 11:35 EST ALL HEMOGLOBINon 03-23-2024 Hemoglobin (Bld) [Mass/Vol] 9.5 g/dL Low 14.0 - 18.0 g/dL [facility] Interpretation and review of laboratory results Abnormal [facility] No Panel InformationOrdered By: Rosalie Bailey on 03-08-2024 Quick Strep (POC) [facility] XR chest 2V*on 03-08-2024 XR chest 2V* [facility] [place] [address] XRay Report Signed Patient: Alex Anderson MR#: [id number] 36 : 1945 Acct:[id number] Age/Sex: 78 / M ADM Date: 03/08/24 Loc: [facility] Room: Type: [facility] Attending Dr: Rosalie Bailey APRN Copies to: [...] Corky Max M.D.03/08/2024 2:03 PM Dictation Location: [place] [address] Transcribed By: LIONEL 03/08/241402 Dictated By: Corky Max II, MD 03/08/241401 Signed By: 03/08/241402 Normal [facility] ALL HEMOGLOBINon 03-04-2024 Hemoglobin (Bld) [...] ok to keep cysto on 04/06/24.LG Normal [facility] ECG 12 Leadon 02-10-2024 ECG revealed normal sinus rhythm, left axis deviation, 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, QT prolongation, IVCD [facility] Work Phone: Bacteria [Presence] in Urine by AutomatedOrdered By: Rob Almazan on 01-23-2024 Bacteria Auto Ql (U) Rare [HPF] None Seen [facility] Bilirubin Test strip Ql (U)O rdered By: Rob Almazan on 01-23-2024 Bilirubin Ql (U) Negative Negative [facility] Color of Urine by AutoOrdere d By: Rob Almazan on 01-23-2024 Color (U) Yellow Normal Yellow [facility] Comment on above: Order Comment: Name Collection Type:: Villarreal Catheter Performed By: #### A DDONUAPLUS, CUU #### [place] [address] [place] Dipstick and Microscopicon 0 01-23-2024 Bacteria,Urine Rare Normal None Seen [facility] Comment on above: Order Comment: Name Collection Type:: Villarreal Catheter Performed By: #### A DDONUAPLUS, CUU #### [place] [address] [place] Bilirubin,Urine Negative Normal Negative [facility] Comment on above: Order Comment: Name Collection Type:: Villarreal Catheter Performed By: #### A DDONUAPLUS, CUU #### [address] Glucose Ql (U) Normal Normal Normal [facility] Comment on above: Order Comment: Name Collection Type:: Villarreal Catheter Performed By: #### A DDONUAPLUS, CUU #### [place] [address] [place] Hyaline Casts,Urine None Normal 0-8 [facility] [facility] Comment on above: Order Comment: Name Collection Type:: Villarreal Catheter Performed By: #### A DDONUAPLUS, CUU #### [place] [address] [place] Mucus,Urine Rare Normal [facility] Comment on above: Order Comment: Name Collection Type:: Villarreal Catheter Result Comment: PERF ORMED BY: [place] [address] PATHOLOGIST MINUTE CLERK FOR BASIC TRAFFIC OREN OWEN M.D. Performed By: #### A DDONUAPLUS, CUU #### [place] [address] [place] Nitrite,Urine Negative Normal Negative [facility] Comment on above: Order Comment: Name Collection Type:: Villarreal Catheter Performed By: #### A DDONUAPLUS, CUU #### [place] [address] [place] Occult Blood,Urine 2+ High Negative [facility] Comment on above: Order Comment: Name Collection Type:: Villarreal Catheter Result Comment: PERF ORMED BY: [place] [address] PATHOLOGIST MINUTE CLERK FOR BASIC TRAFFIC OREN OWEN M.D. Performed By: #### A DDONUAPLUS, CUU #### [address] Protein,Urine Trace High Negative [facility] Comment on above: Order Comment: Name Collection Type:: Villarreal Catheter Performed By: #### A DDONUAPLUS, CUU #### [address] RBC,Urine 20-49 High 0-4 [facility] Comment on above: Order Comment: Name Collection Type:: Villarreal Catheter Performed By: #### A DDONUAPLUS, CUU #### [address] Specificy [place],Urine 1.022 Normal 1.00 1-1.03 0 [facility] Comment on above: Order Comment: Name Collection Type:: Villarreal Catheter Performed By: #### A DDONUAPLUS, CUU #### [address] Urobilinogen,Urine 2 mg/dL High Normal [facility] Comment on above: Order Comment: Name Collection Type:: Villarreal Catheter Performed By: #### A DDONUAPLUS, CUU #### [place] [address] [place] WBC CLUMP, Urine Rare High None Seen [facility] Comment on above: Order Comment: Name Collection Type:: Villarreal Catheter Performed By: #### A DDONUAPLUS, CUU #### [place] [address] [place] WBC,Urine 20-49 High 0-4 [facility] Comment on above: Order Comment: Name Collection Type:: Villarreal Catheter Performed By: #### A DDONUAPLUS, CUU #### [address] ECG 12 lead ECGon 08-30-2024 ECG 12 lead ECG [facility] Main [place] [id number] Electrocardiograph Report Signed Patient: Alex Anderson MR#: [id number] 36 : 1945 Acct:[id number] Age/Sex: 78 / M ADM Date: 01/16/24 Loc: Room: [address] [place] [address] Type: ADM IN Attending Dr: Nas Pruett [...] Acute Anteroseptal infarct Lateral injury pattern ACUTE IN / STEMI Abnormal ECG When compared with ECG of 19-Jan-2024 07:09, Serial changes of Anteroseptal infarct present Confirmed by Misael Campbell ([id number]) on 01/23/2024 11:36:17 AM Referred By: Electronically Signed By: Misael Campbell Transcribed By: MUS Signed By Misael Campbell MD 01/23/24 1136 Normal [facility] Epithelial cells.squamous [# /area] in Urine sediment by Automated countOrdered By: Rob Almazan on 01-23-2024 Epithelial cells.squamous Auto (Urine sed) [#/Area] N/A [facility] Erythrocytes [#/area] in Uri ne sediment by Automated countOrdered By: Rob Almazan on 01-23-2024 RBC Auto (Urine sed) [#/Area] 20-49 [HPF] High 0-4 [facility] Glucose [Mass/volume] in Uri ne by Test stripOrdered By: Rob Almazan on 01-23-2024 Glucose Test strip (U) [Mass/Vol] Normal mg/dL Normal [facility] Hemoglobin Test strip Ql (U) Ordered By: Rob Almazan on 01-23-2024 Hemoglobin Ql (U) 2+ High Negative [facility] Hyaline casts [#/area] in Ur ine sediment by Automated countOrdered By: Rob Almazan on 01-23-2024 Hyaline casts Auto (Urine sed) [#/Area] None [LPF] 0-8 [facility] Ketones [Presence] in Urine by Test stripOrdered By: Rob Almazan on 01-23-2024 Ketones Ql (U) Negative Normal Negative [facility] Comment on above: Order Comment: Name Collection Type:: Villarreal Catheter Performed By: #### A ИРИНА, CUU #### [facility] [address] [place] [address] [place] Leukocyte clumps [Presence] in Urine by AutomatedOrdered By: Rob Almazan on 01-23-2024 Leukocyte clumps Auto Ql (U) Rare [LPF] High None Seen [facility] Leukocyte esterase [Presence ] in Urine by Test stripOrdered By: Rob Almazan on 01-23-2024 Leukocyte esterase Test strip Ql (U) 4+ High Negative [facility] Comment on above: Order Comment: Name Collection Type:: Villarreal Catheter Performed By: #### A ИРИНА, CUU #### [facility] [address] [place] [address] [place] Leukocytes [#/area] in Urine sediment by Automated countOrdered By: Rob Almazan on 01-23-2024 WBC Auto (Urine sed) [#/Area] 20-49 [HPF] High 0-4 [facility] Mucus [Presence] in Urine by AutomatedOrdered By: Rob Almazan on 01-23-2024 Mucus Auto Ql (U) Rare [LPF] [facility] Nitrite Test strip Ql (U)Ord ered By: Rob Almazan on 01-23-2024 Nitrite Ql (U) Negative Negative [facility] Protein Test strip (U) [Mass /Vol]Ordered By: Rob Almazan on 01-23-2024 Protein (U) [Mass/Vol] Trace mg/dL High Negative [facility] Specific gravity Test strip (U) [Rel density]Ordered By: Rob Almazan on 01-23-2024 Specific gravity (U) [Rel density] 1.022 1.001-1.03 0 [facility] Urine Cultureon 01-23-2024 Bacteria identified Cx Nom (U) ORGANISM: Enterococcus faecalis (O:ENTFAC) [place] Count 30,000 Aerobic RITESH Charge (PCMIC38) SUSCEPTIBILITY [...] RESISTANT TO ALL B-LACTAM DRUGS. PERFORMED BY: [place] [address] PATHOLOGIST MINUTE CLERK FOR BASIC TRAFFIC OREN OWEN M.D. Normal [facility] Comment on above: Performed By: #### C ANA, EMILY #### [facility] [address] [place] [address] Urine appearanceOrdered By: Robyandel Almazan on 01-23-2024 Appearance (U) Clear Normal Clear [facility] Comment on above: Order Comment: Name Collection Type:: Villarreal Catheter Performed By: #### A JHONNY GIFFORD #### [facility] [address] [place] [address] Urine culture routineOrdered By: Rob Almazan on 01-23-2024 Bacteria identified Cx Nom (U) Enterococcus faecalis Abnormal [facility] Urobilinogen Test strip (U) [Mass/Vol]Ordered By: Rob Almazan on 01-23-2024 Urobilinogen (U) [Mass/Vol] 2 mg/dL High Normal [facility] pH of Urine by Test stripOrd ered By: Rob virgilio on 01-23-2024 pH (U) 5.5 [pH] Normal 5.0-9.0 [facility] Comment on above: Order Comment: Name Collection Type:: Villarreal Catheter Performed By: #### A DDONUAPLUS, CUU #### [address] Automated basophil %Ordered By: Nas Pruett on 01-21-2024 Basophils/100 WBC (Bld) 0.5 % Normal . [facility] Comment on above: Performed By: #### C BC, BMP #### [address] Automated basophil countOrde red By: Nas Pruett on 01-21-2024 Basophils (Bld) [#/Vol] 0.0 10*3/uL Normal 0.0-0.2 [facility] Comment on above: Result Comment: PERF ORMED BY: [place] [address] PATHOLOGIST MINUTE CLERK FOR BASIC TRAFFIC OREN OWEN M.D. Performed By: #### C BC, BMP #### [address] Automated blood monocyte cou ntOrdered By: Nas Pruett on 01-21-2024 Monocytes (Bld) [#/Vol] 1.4 10*3/uL High 0.0-0.8 [facility] Comment on above: Performed By: #### C BC, BMP #### [address] Automated eosinophil %Ordere d By: Nas Pruett on 01-21-2024 Eosinophils/100 WBC (Bld) 3.6 % Normal . [facility] Comment on above: Performed By: #### C BC, BMP #### [facility] [address] Automated eosinophil countOr dered By: Nas Pruett on 01-21-2024 Eosinophils (Bld) [#/Vol] 0.3 10*3/uL Normal 0.0-0.45 [facility] Comment on above: Performed By: #### C BC, BMP #### [address] Automated monocyte %Ordered By: Nas Pruett on 01-21-2024 Monocytes/100 WBC (Bld) 16.0 % Normal . [facility] Comment on above: Performed By: #### C BC, BMP #### [address] Automated neutrophil %Ordere d By: Nas Pruett on 01-21-2024 Neutrophils/100 WBC (Bld) 64.3 % Normal . [facility] Comment on above: Performed By: #### C BC, BMP #### [address] Basic Metabolic Panelon 12-25 Creatinine Clr Calc Pharmacy 46.56 Normal [facility] Comment on above: Result Comment: PERF ORMED BY: [place] [address] PATHOLOGIST MINUTE CLERK FOR BASIC TRAFFIC OREN OWEN M.D. Performed By: #### C BC, BMP #### [address] GFR/1.73 sq M.predicted MDRD (S/P/Bld) [Vol rate/Area] 43.613 mL/min/{1.73_m2} Normal [facility] Comment on above: Performed By: #### C BC, BMP #### [address] Calcium [Mass/volume] in Ser um or PlasmaOrdered By: Nas Pruett on 01-21-2024 Calcium [Mass/Vol] 8.5 mg/dL Low 8.6-10.3 [facility] Comment on above: Performed By: #### C BC, BMP #### [address] Carbon dioxide, total [Moles /volume] in Serum or PlasmaOrdered By: Nas Pruett on 01-21-2024 CO2 [Moles/Vol] 20.1 mmol/L Low 21.0-31.0 [facility] Comment on above: Performed By: #### C BC, BMP #### [address] Chloride [Moles/volume] in S marium or PlasmaOrdered By: Nas Pruett on 01-21-2024 Chloride [Moles/Vol] 107 mmol/L Normal 98-107 [facility] Comment on above: Performed By: #### C BC, BMP #### [address] Complete Blood Count Auto Di ffon 01-21-2024 Mean Corpuscular HGB Conc 32.9 g/dL Normal 32.5-35.6 [facility] Comment on above: Performed By: #### C BC, BMP #### [address] NRBC% 0.1 /100{WBC} Normal 0-0.5 [facility] Comment on above: Performed By: #### C BC, BMP #### [address] Creatinine [Mass/volume] in Serum or PlasmaOrdered By: Nas Pruett on 01-21-2024 Creatinine [Mass/Vol] 1.59 mg/dL High 0.70-1.30 [facility] Comment on above: Performed By: #### C BC, BMP #### [address] Erythrocyte distribution wid th [Ratio] by Automated countOrdered By: Nas Pruett on 01-21-2024 Erythrocyte distribution width (RBC) [Ratio] 15.6 % High 12.0-14.8 [facility] Comment on above: Performed By: #### C BC, BMP #### [place] [address] [place] Erythrocytes [#/volume] in B lood by Automated countOrdered By: Nas Pruett on 01-21-2024 RBC (Bld) [#/Vol] 4.33 10*6/uL Normal 3.90-5.60 [facility] Comment on above: Performed By: #### C ANA, BMP #### [address] Glucose [Mass/volume] in Ser um or PlasmaOrdered By: Nas Pruett on 01-21-2024 Glucose [Mass/Vol] 121 mg/dL High 70-100 [facility] Comment on above: ADA recommended refe rence rangeRandom Glucose Reference Range is dependent on time and content of last meal. Glucose of more than 200 mg/dL in a nonstressed, ambulatory subject supports the diagnosis of Diabetes Mellitus. Result Comment: [place] om Glucose Reference Range is dependent on time and content of last meal. Glucose of more than 200 mg/dL in a nonstressed, ambulatory subject supports the diagnosis of Diabetes Mellitus. ADA recommended reference range Performed By: #### C ANA, BMP #### [address] Hematocrit [Volume Fraction] of Blood by Automated countOrdered By: Nas Pruett on 01-21-2024 Hematocrit (Bld) [Volume fraction] 37.1 % Low 38.8-50.0 [facility] Comment on above: Performed By: #### C ANA, BMP #### [address] Hemoglobin [Mass/volume] in BloodOrdered By: Nas Pruett on 01-21-2024 Hemoglobin (Bld) [Mass/Vol] 12.2 g/dL Low 13.0-17.0 [facility] Comment on above: Performed By: #### C ANA, BMP #### [place] [address] [place] Leukocytes [#/volume] correc phil for nucleated erythrocytes in Blood by Automated counOrdered By: Nas Pruett on 01-21-2024 WBC corrected for nucl RBC Auto (Bld) [#/Vol] 8.8 10*3/uL 4.1-10.5 [facility] Leukocytes [#/volume] in Blo od by Automated countOrdered By: Nas Pruett on 01-21-2024 WBC (Bld) [#/Vol] 8.8 10*3/uL Normal 4.1-10.5 [facility] Comment on above: Performed By: #### C BC, BMP #### [address] Lymphocytes [#/volume] in Bl ood by Automated countOrdered By: Nas Pruett on 01-21-2024 Lymphocytes (Bld) [#/Vol] 1.4 10*3/uL Normal 1.00-4.8 [facility] Comment on above: Performed By: #### C BC, BMP #### [address] Lymphocytes/100 leukocytes i n Blood by Automated countOrdered By: Nas Pruett on 01-21-2024 Lymphocytes/100 WBC (Bld) 15.6 % Normal . [facility] Comment on above: Performed By: #### C BC, BMP #### [address] MCH [Entitic mass] by Automa phil countOrdered By: Nas Pruett on 01-21-2024 MCH (RBC) [Entitic mass] 28.1 pg Normal 27.5-35.2 [facility] Comment on above: Performed By: #### C BC, BMP #### [address] MCHC Auto (RBC) [Mass/Vol]Or dered By: Nas Pruett on 01-21-2024 MCHC (RBC) [Mass/Vol] 32.9 g/dL 32.5-35.6 [facility] MCV [Entitic volume] by Auto mated countOrdered By: Nas Pruett on 01-21-2024 MCV (RBC) [Entitic vol] 85.6 fL Normal 83.5-101 [facility] Comment on above: Performed By: #### C BC, BMP #### [place] [address] [place] Neutrophils [#/volume] in Bl ood by Automated countOrdered By: Nas Pruett on 01-21-2024 Neutrophils (Bld) [#/Vol] 5.7 10*3/uL Normal 1.8-7.7 [facility] Comment on above: Performed By: #### C ANA, BMP #### [address] No Panel InformationOrdered By: Nas Pruett on 01-21-2024 Estimated GFR (CKD-EPI) 43.613 mL/Min [facility] Creatinine Clearance (Chem 46.56 [facility] Nucleated erythrocytes [Pres ence] in Blood by Automated countOrdered By: Nas Pruett on 01-21-2024 Nucleated RBC Auto Ql (Bld) 0.1 /100{WBC} 0-0.5 [facility] Platelet mean volume [Entiti c volume] in Blood by Automated countOrdered By: Nas Pruett on 01-21-2024 Platelet mean volume (Bld) [Entitic vol] 8.4 fL Normal 6.6-10.1 [facility] Comment on above: Performed By: #### C ANA, BMP #### [address] Platelets [#/volume] in Bloo d by Automated countOrdered By: Nas Pruett on 01-21-2024 Platelets (Bld) [#/Vol] 221 10*3/uL Normal 150-450 [facility] Comment on above: Performed By: #### C ANA, BMP #### [address] Potassium [Moles/volume] in Serum or PlasmaOrdered By: Nas Pruett on 01-21-2024 Potassium [Moles/Vol] 3.9 mmol/L Normal 3.5-5.1 [facility] Comment on above: Performed By: #### C ANA, BMP #### [address] Serum or plasma anion gap de terminationOrdered By: Nas Pruett on 01-21-2024 Anion gap [Moles/Vol] 13.8 mmol/L Normal 6.0-15.0 [facility] Comment on above: Performed By: #### C BC, BMP #### [place] [address] [place] Sodium [Moles/volume] in Ser um or PlasmaOrdered By: Nas Pruett on 01-21-2024 Sodium [Moles/Vol] 137 mmol/L Normal 136-145 [facility] Comment on above: Performed By: #### C BC, BMP #### [address] Urea nitrogen [Mass/volume] in Serum or PlasmaOrdered By: Nas Pruett on 01-21-2024 Urea nitrogen [Mass/Vol] 35 mg/dL High 12-17 [facility] Comment on above: Performed By: #### C BC, BMP #### [address] Basic Metabolic Panelon 12-25 Anion gap [Moles/Vol] 12.0 mmol/L Normal 6.0-15.0 [facility] Comment on above: Performed By: #### B MP, AST, LIPID, ALT, TSH3, CBC #### [address] Calcium [Mass/Vol] 8.4 mg/dL Low 8.6-10.3 [facility] Comment on above: Performed By: #### B MP, AST, LIPID, ALT, TSH3, CBC #### [place] [address] [place] Chloride [Moles/Vol] 107 mmol/L Normal 98-107 [facility] Comment on above: Performed By: #### B MP, AST, LIPID, ALT, TSH3, CBC #### [place] [address] [place] CO2 [Moles/Vol] 19.5 mmol/L Low 21.0-31.0 [facility] Comment on above: Performed By: #### B MP, AST, LIPID, ALT, TSH3, CBC #### [place] [address] [place] Creatinine [Mass/Vol] 1.50 mg/dL High 0.70-1.30 [facility] Comment on above: Performed By: #### B MP, AST, LIPID, ALT, TSH3, CBC #### [address] Creatinine Clr Calc Pharmacy 49.40 Normal [facility] Comment on above: Result Comment: PERF ORMED BY: [place] [address] PATHOLOGIST MINUTE CLERK FOR BASIC TRAFFIC OREN OWEN M.D. Performed By: #### B MP, AST, LIPID, ALT, TSH3, CBC #### [address] GFR/1.73 sq M.predicted MDRD (S/P/Bld) [Vol rate/Area] 46.772 mL/min/{1.73_m2} Normal [facility] Comment on above: Performed By: #### B MP, AST, LIPID, ALT, TSH3, CBC #### [address] Glucose [Mass/Vol] 136 mg/dL High 70-100 [facility] Comment on above: Result Comment: [facility] Glucose Reference Range is dependent on time and content of last meal. Glucose of more than 200 mg/dL in a nonstressed, ambulatory subject supports the diagnosis of Diabetes Mellitus. ADA recommended reference range Performed By: #### B MP, AST, LIPID, ALT, TSH3, CBC #### [address] Potassium [Moles/Vol] 3.5 mmol/L Normal 3.5-5.1 [facility] Comment on above: Performed By: #### B MP, AST, LIPID, ALT, TSH3, CBC #### [address] Sodium [Moles/Vol] 135 mmol/L Low 136-145 [facility] Comment on above: Performed By: #### B MP, AST, LIPID, ALT, TSH3, CBC #### [address] Urea nitrogen [Mass/Vol] 32 mg/dL High 7-25 [facility] Comment on above: Performed By: #### B MP, AST, LIPID, ALT, TSH3, CBC #### [address] Complete Blood Count Auto Di ffon 01-20-2024 Basophils (Bld) [#/Vol] 0.0 10*3/uL Normal 0.0-0.2 [facility] Comment on above: Result Comment: PERF ORMED BY: [place] [address] PATHOLOGIST MINUTE CLERK FOR BASIC TRAFFIC OREN OWEN M.D. Performed By: #### B MP, AST, LIPID, ALT, TSH3, CBC #### [address] Basophils/100 WBC (Bld) 0.3 % Normal . [facility] Comment on above: Performed By: #### B MP, AST, LIPID, ALT, TSH3, CBC #### [address] Eosinophils (Bld) [#/Vol] 0.2 10*3/uL Normal 0.0-0.45 [facility] Comment on above: Performed By: #### B MP, AST, LIPID, ALT, TSH3, CBC #### [address] Eosinophils/100 WBC (Bld) 1.7 % Normal . [facility] Comment on above: Performed By: #### B MP, AST, LIPID, ALT, TSH3, CBC #### [address] Erythrocyte distribution width (RBC) [Ratio] 15.4 % High 12.0-14.8 [facility] Comment on above: Performed By: #### B MP, AST, LIPID, ALT, TSH3, CBC #### [address] Hematocrit (Bld) [Volume fraction] 37.6 % Low 38.8-50.0 [facility] Comment on above: Performed By: #### B MP, AST, LIPID, ALT, TSH3, CBC #### [address] Hemoglobin (Bld) [Mass/Vol] 12.5 g/dL Low 13.0-17.0 [facility] Comment on above: Performed By: #### B MP, AST, LIPID, ALT, TSH3, CBC #### [address] Lymphocytes (Bld) [#/Vol] 1.1 10*3/uL Normal 1.00-4.8 [facility] Comment on above: Performed By: #### B MP, AST, LIPID, ALT, TSH3, CBC #### [address] Lymphocytes/100 WBC (Bld) 11.8 % Normal . [facility] Comment on above: Performed By: #### B MP, AST, LIPID, ALT, TSH3, CBC #### [address] MCH (RBC) [Entitic mass] 28.5 pg Normal 27.5-35.2 [facility] Comment on above: Performed By: #### B MP, AST, LIPID, ALT, TSH3, CBC #### [address] MCV (RBC) [Entitic vol] 85.9 fL Normal 83.5-101 [facility] Comment on above: Performed By: #### B MP, AST, LIPID, ALT, TSH3, CBC #### [address] Mean Corpuscular HGB Conc 33.2 g/dL Normal 32.5-35.6 [facility] Comment on above: Performed By: #### B MP, AST, LIPID, ALT, TSH3, CBC #### [address] Monocytes (Bld) [#/Vol] 1.4 10*3/uL High 0.0-0.8 [facility] Comment on above: Performed By: #### B MP, AST, LIPID, ALT, TSH3, CBC #### [address] Monocytes/100 WBC (Bld) 14.3 % Normal . [facility] Comment on above: Performed By: #### B MP, AST, LIPID, ALT, TSH3, CBC #### [address] Neutrophils (Bld) [#/Vol] 6.8 10*3/uL Normal 1.8-7.7 [facility] Comment on above: Performed By: #### B MP, AST, LIPID, ALT, TSH3, CBC #### [address] Neutrophils/100 WBC (Bld) 71.9 % Normal . [facility] Comment on above: Performed By: #### B MP, AST, LIPID, ALT, TSH3, CBC #### [address] NRBC% 0.0 /100{WBC} Normal 0-0.5 [facility] Comment on above: Performed By: #### B MP, AST, LIPID, ALT, TSH3, CBC #### [address] Platelet mean volume (Bld) [Entitic vol] 8.3 fL Normal 6.6-10.1 [facility] Comment on above: Performed By: #### B MP, AST, LIPID, ALT, TSH3, CBC #### [address] Platelets (Bld) [#/Vol] 202 10*3/uL Normal 150-450 [facility] Comment on above: Performed By: #### B MP, AST, LIPID, ALT, TSH3, CBC #### [address] RBC (Bld) [#/Vol] 4.38 10*6/uL Normal 3.90-5.60 [facility] Comment on above: Performed By: #### B MP, AST, LIPID, ALT, TSH3, CBC #### [address] WBC (Bld) [#/Vol] 9.5 10*3/uL Normal 4.1-10.5 [facility] Comment on above: Performed By: #### B MP, AST, LIPID, ALT, TSH3, CBC #### [address] Magnesium [Mass/volume] in S marium or PlasmaOrdered By: Isaac Edwards on 01-20-2024 Magnesium [Mass/Vol] 2.1 mg/dL Normal 1.9-2.7 [facility] Comment on above: Result Comment: PERF ORMED BY: [place] [address] PATHOLOGIST MINUTE CLERK FOR BASIC TRAFFIC OREN OWEN M.D. Performed By: #### B MP, AST, LIPID, ALT, TSH3, CBC #### [address] Basic Metabolic Panelon 12-25 Anion gap [Moles/Vol] 11.7 mmol/L Normal 6.0-15.0 [facility] Comment on above: Performed By: #### B MP, AST, LIPID, ALT, TSH3, CBC #### [address] Calcium [Mass/Vol] 8.5 mg/dL Low 8.6-10.3 [facility] Comment on above: Performed By: #### B MP, AST, LIPID, ALT, TSH3, CBC #### [address] Chloride [Moles/Vol] 106 mmol/L Normal 98-107 [facility] Comment on above: Performed By: #### B MP, AST, LIPID, ALT, TSH3, CBC #### [address] CO2 [Moles/Vol] 19.9 mmol/L Low 21.0-31.0 [facility] Comment on above: Performed By: #### B MP, AST, LIPID, ALT, TSH3, CBC #### [address] Creatinine [Mass/Vol] 1.62 mg/dL High 0.70-1.30 [facility] Comment on above: Performed By: #### B MP, AST, LIPID, ALT, TSH3, CBC #### [address] Creatinine Clr Calc Pharmacy 42.28 Normal [facility] Comment on above: Result Comment: PERF ORMED BY: [place] [address] PATHOLOGIST MINUTE CLERK FOR BASIC TRAFFIC OREN OWEN M.D. Performed By: #### B MP, AST, LIPID, ALT, TSH3, CBC #### [address] GFR/1.73 sq M.predicted MDRD (S/P/Bld) [Vol rate/Area] 42.646 mL/min/{1.73_m2} Normal [facility] Comment on above: Performed By: #### B MP, AST, LIPID, ALT, TSH3, CBC #### [address] Glucose [Mass/Vol] 145 mg/dL High 70-100 [facility] Comment on above: Result Comment: [place] Glucose Reference Range is dependent on time and content of last meal. Glucose of more than 200 mg/dL in a nonstressed, ambulatory subject supports the diagnosis of Diabetes Mellitus. ADA recommended reference range Performed By: #### B MP, AST, LIPID, ALT, TSH3, CBC #### [address] Potassium [Moles/Vol] 3.6 mmol/L Normal 3.5-5.1 [facility] Comment on above: Performed By: #### B MP, AST, LIPID, ALT, TSH3, CBC #### [place] [address] [place] Sodium [Moles/Vol] 134 mmol/L Low 136-145 [facility] Comment on above: Performed By: #### B MP, AST, LIPID, ALT, TSH3, CBC #### [address] Urea nitrogen [Mass/Vol] 32 mg/dL High 7-25 [facility] Comment on above: Performed By: #### B MP, AST, LIPID, ALT, TSH3, CBC #### [address] Complete Blood Count Auto Di ffon 01-19-2024 Basophils (Bld) [#/Vol] 0.0 10*3/uL Normal 0.0-0.2 [facility] Comment on above: Result Comment: PERF ORMED BY: [place] [address] PATHOLOGIST MINUTE CLERK FOR BASIC TRAFFIC OREN OWEN M.D. Performed By: #### B MP, AST, LIPID, ALT, TSH3, CBC #### [address] Basophils/100 WBC (Bld) 0.4 % Normal . T jonatan [facility] Comment on above: Performed By: #### B MP, AST, LIPID, ALT, TSH3, CBC #### [address] Eosinophils (Bld) [#/Vol] 0.0 10*3/uL Normal 0.0-0.45 [facility] Comment on above: Performed By: #### B MP, AST, LIPID, ALT, TSH3, CBC #### [address] Eosinophils/100 WBC (Bld) 0.4 % Normal . [facility] Comment on above: Performed By: #### B MP, AST, LIPID, ALT, TSH3, CBC #### [address] Erythrocyte distribution width (RBC) [Ratio] 15.6 % High 12.0-14.8 [facility] Comment on above: Performed By: #### B MP, AST, LIPID, ALT, TSH3, CBC #### [address] Hematocrit (Bld) [Volume fraction] 37.1 % Low 38.8-50.0 [facility] Comment on above: Performed By: #### B MP, AST, LIPID, ALT, TSH3, CBC #### [address] Hemoglobin (Bld) [Mass/Vol] 12.3 g/dL Low 13.0-17.0 [facility] Comment on above: Performed By: #### B MP, AST, LIPID, ALT, TSH3, CBC #### [address] Lymphocytes (Bld) [#/Vol] 1.0 10*3/uL Normal 1.00-4.8 [facility] Comment on above: Performed By: #### B MP, AST, LIPID, ALT, TSH3, CBC #### [address] Lymphocytes/100 WBC (Bld) 8.8 % Normal . [facility] Comment on above: Performed By: #### B MP, AST, LIPID, ALT, TSH3, CBC #### [address] MCH (RBC) [Entitic mass] 28.6 pg Normal 27.5-35.2 [facility] Comment on above: Performed By: #### B MP, AST, LIPID, ALT, TSH3, CBC #### [address] MCV (RBC) [Entitic vol] 86.5 fL Normal 83.5-101 [facility] Comment on above: Performed By: #### B MP, AST, LIPID, ALT, TSH3, CBC #### [address] Mean Corpuscular HGB Conc 33.0 g/dL Normal 32.5-35.6 [facility] Comment on above: Performed By: #### B MP, AST, LIPID, ALT, TSH3, CBC #### [address] Monocytes (Bld) [#/Vol] 1.3 10*3/uL High 0.0-0.8 [facility] Comment on above: Performed By: #### B MP, AST, LIPID, ALT, TSH3, CBC #### [place] [address] [place] Monocytes/100 WBC (Bld) 11.9 % Normal . [facility] Comment on above: Performed By: #### B MP, AST, LIPID, ALT, TSH3, CBC #### [address] Neutrophils (Bld) [#/Vol] 8.6 10*3/uL High 1.8-7.7 [facility] Comment on above: Performed By: #### B MP, AST, LIPID, ALT, TSH3, CBC #### [address] Neutrophils/100 WBC (Bld) 78.5 % Normal . [facility] Comment on above: Performed By: #### B MP, AST, LIPID, ALT, TSH3, CBC #### [address] NRBC% 0.1 /100{WBC} Normal 0-0.5 [facility] Comment on above: Performed By: #### B MP, AST, LIPID, ALT, TSH3, CBC #### [address] Platelet mean volume (Bld) [Entitic vol] 8.9 fL Normal 6.6-10.1 [facility] Comment on above: Performed By: #### B MP, AST, LIPID, ALT, TSH3, CBC #### [address] Platelets (Bld) [#/Vol] 165 10*3/uL Normal 150-450 [facility] Comment on above: Performed By: #### B MP, AST, LIPID, ALT, TSH3, CBC #### [facility] [address] RBC (Bld) [#/Vol] 4.30 10*6/uL Normal 3.90-5.60 [facility] Comment on above: Performed By: #### B MP, AST, LIPID, ALT, TSH3, CBC #### [facility] [address] WBC (Bld) [#/Vol] 11.0 10*3/uL High 4.1-10.5 [facility] Comment on above: Performed By: #### B MP, AST, LIPID, ALT, TSH3, CBC #### [facility] [address] ECG 12 lead ECGon 01-19-2024 ECG 12 lead ECG [facility] [place] [address] [place] [address] Electrocardiograph Report Signed Patient: Alex Anderson MR#: [id number] [birth year] : 1945 Acct:[id number] Age/Sex: 78 / M ADM Date: 01/16/24 Loc: Room: [address] [place] [address] Type: ADM IN Attending Dr: Nas Pruett [...] or before 16-Jan-2024) Inferolateral injury pattern ACUTE IN / STEMI Abnormal ECG When compared with ECG of 18-Jan-2024 07:08, No significant change was found Confirmed by Misael Campbell ([id number]) on 01/20/2024 10:18:21 PM Referred By: Electronically Signed By: Misael Campbell Transcribed By: MUS Signed By Misael Campbell MD 01/20/24 2218 Normal [facility] Basic Metabolic Panelon 12-25 Anion gap [Moles/Vol] 11.5 mmol/L Normal 6.0-15.0 [facility] Comment on above: Performed By: #### C BC, BMP #### [address] Calcium [Mass/Vol] 8.7 mg/dL Normal 8.6-10.3 [facility] Comment on above: Performed By: #### C BC, BMP #### [facility] [address] Chloride [Moles/Vol] 107 mmol/L Normal 98-107 [facility] Comment on above: Performed By: #### C BC, BMP #### [address] CO2 [Moles/Vol] 21.2 mmol/L Normal 21.0-31.0 [facility] Comment on above: Performed By: #### C BC, BMP #### [address] Creatinine [Mass/Vol] 1.59 mg/dL High 0.70-1.30 [facility] Comment on above: Performed By: #### C BC, BMP #### [address] Creatinine Clr Calc Pharmacy 46.65 Normal [facility] Comment on above: Result Comment: PERF ORMED BY: [place] [address] PATHOLOGIST MINUTE CLERK FOR BASIC TRAFFIC OREN OWEN M.D. Performed By: #### C BC, BMP #### [address] GFR/1.73 sq M.predicted MDRD (S/P/Bld) [Vol rate/Area] 43.613 mL/min/{1.73_m2} Normal [facility] Comment on above: Performed By: #### C BC, BMP #### [address] Glucose [Mass/Vol] 125 mg/dL High 70-100 [facility] Comment on above: Result Comment: [facility] Glucose Reference Range is dependent on time and content of last meal. Glucose of more than 200 mg/dL in a nonstressed, ambulatory subject supports the diagnosis of Diabetes Mellitus. ADA recommended reference range Performed By: #### C BC, BMP #### [address] Potassium [Moles/Vol] 3.7 mmol/L Normal 3.5-5.1 [facility] Comment on above: Performed By: #### C BC, BMP #### [address] Sodium [Moles/Vol] 136 mmol/L Normal 136-145 [facility] Comment on above: Performed By: #### C BC, BMP #### [address] Urea nitrogen [Mass/Vol] 29 mg/dL High 7-25 [facility] Comment on above: Performed By: #### C BC, BMP #### [address] Complete Blood Count Auto Di ffon 01-18-2024 Basophils (Bld) [#/Vol] 0.0 10*3/uL Normal 0.0-0.2 [facility] Comment on above: Result Comment: PERF ORMED BY: [place] [address] PATHOLOGIST MINUTE CLERK FOR BASIC TRAFFIC OREN OWEN M.D. Performed By: #### C BC, BMP #### [place] [address] [place] Basophils/100 WBC (Bld) 0.4 % Normal . [facility] Comment on above: Performed By: #### C BC, BMP #### [address] Eosinophils (Bld) [#/Vol] 0.0 10*3/uL Normal 0.0-0.45 [facility] Comment on above: Performed By: #### C BC, BMP #### [address] Eosinophils/100 WBC (Bld) 0.2 % Normal . [facility] Comment on above: Performed By: #### C BC, BMP #### [address] Erythrocyte distribution width (RBC) [Ratio] 15.9 % High 12.0-14.8 [facility] Comment on above: Performed By: #### C BC, BMP #### [address] Hematocrit (Bld) [Volume fraction] 38.2 % Low 38.8-50.0 [facility] Comment on above: Performed By: #### C BC, BMP #### [address] Hemoglobin (Bld) [Mass/Vol] 12.7 g/dL Low 13.0-17.0 [facility] Comment on above: Performed By: #### C BC, BMP #### [address] Lymphocytes (Bld) [#/Vol] 1.4 10*3/uL Normal 1.00-4.8 [facility] Comment on above: Performed By: #### C BC, BMP #### [address] Lymphocytes/100 WBC (Bld) 11.5 % Normal . [facility] Comment on above: Performed By: #### C BC, BMP #### [address] MCH (RBC) [Entitic mass] 28.5 pg Normal 27.5-35.2 [facility] Comment on above: Performed By: #### C BC, BMP #### [address] MCV (RBC) [Entitic vol] 85.4 fL Normal 83.5-101 [facility] Comment on above: Performed By: #### C BC, BMP #### [address] Mean Corpuscular HGB Conc 33.4 g/dL Normal 32.5-35.6 [facility] Comment on above: Performed By: #### C BC, BMP #### [address] Monocytes (Bld) [#/Vol] 1.5 10*3/uL High 0.0-0.8 [facility] Comment on above: Performed By: #### C BC, BMP #### [address] Monocytes/100 WBC (Bld) 12.8 % Normal . [facility] Comment on above: Performed By: #### C BC, BMP #### [address] Neutrophils (Bld) [#/Vol] 9.1 10*3/uL High 1.8-7.7 [facility] Comment on above: Performed By: #### C BC, BMP #### [address] Neutrophils/100 WBC (Bld) 75.1 % Normal . [facility] Comment on above: Performed By: #### C BC, BMP #### [address] NRBC% 0.0 /100{WBC} Normal 0-0.5 [facility] Comment on above: Performed By: #### C BC, BMP #### [address] Platelet mean volume (Bld) [Entitic vol] 9.3 fL Normal 6.6-10.1 [facility] Comment on above: Performed By: #### C BC, BMP #### [place] [address] [place] Platelets (Bld) [#/Vol] 131 10*3/uL Low 150-450 [facility] Comment on above: Performed By: #### C BC, BMP #### [address] [address] [place] RBC (Bld) [#/Vol] 4.47 10*6/uL Normal 3.90-5.60 [facility] Comment on above: Performed By: #### C BC, BMP #### [facility] [address] [place] [address] WBC (Bld) [#/Vol] 12.1 10*3/uL High 4.1-10.5 [facility] Comment on above: Performed By: #### C BC, BMP #### [facility] [address] [place] [address] ECG 12 lead ECGon 01-18-2024 ECG 12 lead ECG [facility] [place] [address] [place] [address] Electrocardiograph Report Signed Patient: Alex Anderson MR#: [id number] [birth year] : 1945 Acct:[id number] Age/Sex: 78 / M ADM Date: 01/16/24 Loc: Room: [address] [place] [address] Type: ADM IN Attending Dr: Nas Pruett [...] Castro MD 0 01/18/24 1102 Normal [facility] Basic Metabolic Panelon 08-2 Anion gap [Moles/Vol] 12.3 mmol/L Normal 6.0-15.0 [facility] Comment on above: Performed By: #### B MP, AST, LIPID, ALT, TSH3, CBC #### [address] Calcium [Mass/Vol] 8.9 mg/dL Normal 8.6-10.3 [facility] Comment on above: Performed By: #### B MP, AST, LIPID, ALT, TSH3, CBC #### [address] Chloride [Moles/Vol] 105 mmol/L Normal 98-107 [facility] Comment on above: Performed By: #### B MP, AST, LIPID, ALT, TSH3, CBC #### [address] CO2 [Moles/Vol] 22.2 mmol/L Normal 21.0-31.0 [facility] Comment on above: Performed By: #### B MP, AST, LIPID, ALT, TSH3, CBC #### [address] Creatinine [Mass/Vol] 1.70 mg/dL High 0.70-1.30 [facility] Comment on above: Performed By: #### B MP, AST, LIPID, ALT, TSH3, CBC #### [address] Creatinine Clr Calc Pharmacy 44.35 Normal [facility] Comment on above: Performed By: #### B MP, AST, LIPID, ALT, TSH3, CBC #### [place] [address] [place] GFR/1.73 sq M.predicted MDRD (S/P/Bld) [Vol rate/Area] 40.249 mL/min/{1.73_m2} Normal [facility] Comment on above: Performed By: #### B MP, AST, LIPID, ALT, TSH3, CBC #### [address] Glucose [Mass/Vol] 115 mg/dL High 70-100 [facility] Comment on above: Result Comment: [facility] Glucose Reference Range is dependent on time and content of last meal. Glucose of more than 200 mg/dL in a nonstressed, ambulatory subject supports the diagnosis of Diabetes Mellitus. ADA recommended reference range Performed By: #### B MP, AST, LIPID, ALT, TSH3, CBC #### [facility] [address] Potassium [Moles/Vol] 4.5 mmol/L Normal 3.5-5.1 [facility] Comment on above: Performed By: #### B MP, AST, LIPID, ALT, TSH3, CBC #### [facility] [address] Sodium [Moles/Vol] 135 mmol/L Low 136-145 [facility] Comment on above: Performed By: #### B MP, AST, LIPID, ALT, TSH3, CBC #### [address] Urea nitrogen [Mass/Vol] 26 mg/dL High 7-25 [facility] Comment on above: Performed By: #### B MP, AST, LIPID, ALT, TSH3, CBC #### [facility] [address] Capillary blood glucose elan urement by glucometer (mass/volume)Ordered By: Nas Pruett on 01-17-2024 Glucose [Mass/Vol] 126 mg/dL Normal [facility] Comment on above: Random Glucose Refer ence Range is dependent on time and content of last meal. Glucose of more than 200 mg/dL in a nonstressed, ambulatory subject supports the diagnosis of Diabetes Mellitus. Result Comment: [facility] Glucose Reference Range is dependent on time and content of last meal. Glucose of more than 200 mg/dL in a nonstressed, ambulatory subject supports the diagnosis of Diabetes Mellitus. PERFORMED BY: [place] [address] PATHOLOGIST MINUTE CLERK FOR BASIC TRAFFIC OREN OWEN M.D. Performed By: #### B MP, AST, LIPID, ALT, TSH3, CBC #### [place] [address] [place] Cholesterol [Mass/volume] in Serum or PlasmaOrdered By: Nas Pruett on 01-17-2024 Cholesterol [Mass/Vol] 74 mg/dL Low 140-200 [facility] Comment on above: Chol less than 200 m g/dl low riskChol 201-239 mg/dl borderline riskChol 240 mg/dl and greater high risk Result Comment: Chol less than 200 mg/dl low risk Chol 201-239 mg/dl borderline risk Chol 240 mg/dl and greater high risk Performed By: #### B MP, AST, LIPID, ALT, TSH3, CBC #### [facility] [address] [place] [id number] [place] Cholesterol in LDL Calc [Mas s/Vol]Ordered By: Nas Pruett on 01-17-2024 Cholesterol in LDL [Mass/Vol] 28 mg/dL 0-100 [facility] Comment on above: LDL ATP III CLASSIFI CATIONLDL less than 100 mg/dL OptimalLDL 100-129 mg/dL Near or above optimalLDL 130-159 mg/dL Borderline highLDL 160-189 mg/dL HighLDL greater than 189 mg/dL Very high Cholesterol in VLDL Calc [Ma ss/Vol]Ordered By: Nas Pruett on 01-17-2024 Cholesterol in VLDL [Mass/Vol] 13 mg/dL [facility] Dipstick and Microscopicon 0 01-17-2024 Appearance (U) Cloudy Critically abnormal Clear [facility] Comment on above: Order Comment: Name Collection Type:: Villarreal Catheter Performed By: #### B MP, AST, LIPID, ALT, TSH3, CBC #### [facility] [address] [place] [id number] [place] Bacteria,Urine 2+ High None Seen [facility] Comment on above: Order Comment: Name Collection Type:: Villarreal Catheter Performed By: #### B MP, AST, LIPID, ALT, TSH3, CBC #### [facility] [address] [place] [id number] [place] Bilirubin,Urine Negative Normal Negative [facility] Comment on above: Order Comment: Name Collection Type:: Villarreal Catheter Performed By: #### B MP, AST, LIPID, ALT, TSH3, CBC #### [facility] [address] [place] [address] Color (U) Light-Yellow Normal Yellow [facility] Comment on above: Order Comment: Name Collection Type:: Villarreal Catheter Performed By: #### B MP, AST, LIPID, ALT, TSH3, CBC #### [address] Glucose Ql (U) Normal Normal Normal [facility] Comment on above: Order Comment: Name Collection Type:: Villarreal Catheter Performed By: #### B MP, AST, LIPID, ALT, TSH3, CBC #### [address] Hyaline Casts,Urine None Normal 0-8 [facility] Comment on above: Order Comment: Name Collection Type:: Villarreal Catheter Performed By: #### B MP, AST, LIPID, ALT, TSH3, CBC #### [address] Ketones Ql (U) Negative Normal Negative [facility] Comment on above: Order Comment: Name Collection Type:: Villarreal Catheter Performed By: #### B MP, AST, LIPID, ALT, TSH3, CBC #### [address] Leukocyte esterase Test strip Ql (U) 3+ High Negative [facility] Comment on above: Order Comment: Name Collection Type:: Villarreal Catheter Performed By: #### B MP, AST, LIPID, ALT, TSH3, CBC #### [address] Mucus,Urine Rare Normal [facility] Comment on above: Order Comment: Name Collection Type:: Villarreal Catheter Result Comment: PERF ORMED BY: [place] [address] PATHOLOGIST MINUTE CLERK FOR BASIC TRAFFIC OREN OWEN M.D. Performed By: #### B MP, AST, LIPID, ALT, TSH3, CBC #### [address] Nitrite,Urine Negative Normal Negative [facility] Comment on above: Order Comment: Name Collection Type:: Villarreal Catheter Performed By: #### B MP, AST, LIPID, ALT, TSH3, CBC #### [address] Occult Blood,Urine Trace High Negative [facility] Comment on above: Order Comment: Name Collection Type:: Villarreal Catheter Result Comment: PERF ORMED BY: [place] [address] PATHOLOGIST MINUTE CLERK FOR BASIC TRAFFIC OREN OWEN M.D. Performed By: #### B MP, AST, LIPID, ALT, TSH3, CBC #### [address] pH (U) 6.0 [pH] Normal 5.0-9.0 [facility] Comment on above: Order Comment: Name Collection Type:: Villarreal Catheter Performed By: #### B MP, AST, LIPID, ALT, TSH3, CBC #### [address] Protein,Urine Trace High Negative [facility] Comment on above: Order Comment: Name Collection Type:: Villarreal Catheter Performed By: #### B MP, AST, LIPID, ALT, TSH3, CBC #### [address] RBC,Urine 3-4 Normal 0-4 [facility] Comment on above: Order Comment: Name Collection Type:: Villarreal Catheter Performed By: #### B MP, AST, LIPID, ALT, TSH3, CBC #### [address] Specificy [place],Urine 1.018 Normal 1.00 1-1.03 0 [facility] Comment on above: Order Comment: Name Collection Type:: Villarreal Catheter Performed By: #### B MP, AST, LIPID, ALT, TSH3, CBC #### [address] Squamous Epithelial Cell,Urine 1-2 Normal 0-2 [facility] Comment on above: Order Comment: Name Collection Type:: Villarreal Catheter Performed By: #### B MP, AST, LIPID, ALT, TSH3, CBC #### [facility] [address] [place] [phone] [facility] Urobilinogen,Urine Normal Normal Normal [facility] Comment on above: Order Comment: Name Collection Type:: Villarreal Catheter Performed By: #### B MP, AST, LIPID, ALT, TSH3, CBC #### [facility] [address] [place] [address] [place] WBC,Urine 10-19 High 0-4 [facility] Comment on above: Order Comment: Name Collection Type:: Villarreal Catheter Performed By: #### B MP, AST, LIPID, ALT, TSH3, CBC #### [facility] [address] [place] [id number] [facility] ECG 12 lead ECGon 01-17-2024 ECG 12 lead ECG [facility] [place] [address] [place] [address] Electrocardiograph Report Signed Patient: Alex Anderson MR#: [id number] [birth year] : 1945 Acct:[id number] Age/Sex: 78 / M ADM Date: 01/16/24 Loc: Room: [address] [place] [address] Type: ADM IN Attending Dr: Nas Pruett [...] or before 16-Jan-2024) Inferior injury pattern ACUTE IN / STEMI Abnormal ECG When compared with ECG of 16-Jan-2024 19:53, (Unconfirmed) Serial changes of evolving Septal infarct present Confirmed by ANA CASTRO MD ([id number]) on 01/17/2024 9:52:42 AM Referred By: Electronically Signed By: ANA CASTRO MD Transcribed By: MUS Signed By Ana Castro MD 0 01/17/24 0952 Normal [facility] echo transthoracicon [facility] echo transthoracic [facility] [place] [address] [place] [address] Echocardiogram Signed Patient: Alex Anderson MR#: [id number] 36 : 1945 Acct:[id number] Age/Sex: 78 / M ADM Date: 01/16/24 Loc: Room: [address] [place] [address] Type: ADM IN Attending Dr: Nas Pruett DO Ordering Provider: Nas Pruett DO Date of Service: 01/17/24 [facility]: Ant STEMI Copies to: MD [...] Ana Castro MD 01/17/24 1150 Normal [facility] Glucose Poct Glucometerson 0 01-17-2024 Glucose [Mass/Vol] 115 mg/dL Normal [facility] Comment on above: Result Comment: [facility] Glucose Reference Range is dependent on time and content of last meal. Glucose of more than 200 mg/dL in a nonstressed, ambulatory subject supports the diagnosis of Diabetes Mellitus. PERFORMED BY: [place] [address] PATHOLOGIST MINUTE CLERK FOR BASIC TRAFFIC OREN OWEN M.D. Performed By: #### C , BMP #### [address] Glucose [Mass/Vol] 114 mg/dL Normal [facility] Comment on above: Result Comment: [facility] Glucose Reference Range is dependent on time and content of last meal. Glucose of more than 200 mg/dL in a nonstressed, ambulatory subject supports the diagnosis of Diabetes Mellitus. PERFORMED BY: [place] [address] PATHOLOGIST MINUTE CLERK FOR BASIC TRAFFIC OREN OWEN M.D. Performed By: #### B MP, AST, LIPID, ALT, TSH3, CBC #### [address] Glucose [Mass/Vol] 125 mg/dL Normal [facility] Comment on above: Result Comment: [facility] Glucose Reference Range is dependent on time and content of last meal. Glucose of more than 200 mg/dL in a nonstressed, ambulatory subject supports the diagnosis of Diabetes Mellitus. PERFORMED BY: [place] [address] PATHOLOGIST MINUTE CLERK FOR BASIC TRAFFIC OREN OWEN M.D. Performed By: #### B MP, AST, LIPID, ALT, TSH3, CBC #### [address] Lipid Panelon 01-17-2024 LDL Cholesterol,Calculated 28 mg/dL Normal 0-100 [facility] Comment on above: Result Comment: LDL ATP III CLASSIFICATION LDL less than 100 mg/dL Optimal LDL 100-129 mg/dL Near or above optimal LDL 130-159 mg/dL Borderline high LDL 160-189 mg/dL High LDL greater than 189 mg/dL Very high Performed By: #### B MP, AST, LIPID, ALT, TSH3, CBC #### [address] Triglyceride w/Reflex 67 mg/dL Normal 0-149 [facility] Comment on above: Result Comment: TRIG ATP III CLASSIFICATION TRIG less than 150 mg/dL Normal TRIG 150-199 mg/dL Borderline high TRIG 200-500 mg/dL High TRIG greater than 500 mg/dL Very high Standard traceable to the Center for Disease Conrtrol and Prevention (CDC) test method. Performed By: #### B MP, AST, LIPID, ALT, TSH3, CBC #### [address] VLDL CHOLESTEROL 13 mg/dL Normal [facility] Comment on above: Performed By: #### B MP, AST, LIPID, ALT, TSH3, CBC #### [address] Platelet adequacy [Presence] in Blood by Light microscopyOrdered By: Nas Pruett on 01-17-2024 Platelets LM Ql (Bld) Decreased Normal [facility] Platelet morphology finding [Identifier] in BloodOrdered By: Nas Pruett on 01-17-2024 Platelet morphology finding Nom (Bld) Normal Normal [facility] RBC morphologyOrdered By: Nas Pruett on 01-17-2024 RBC morphology finding Nom (Bld) N/A [facility] Scan and CBCon 01-17-2024 Basophils (Bld) [#/Vol] 0.1 10*3/uL Normal 0.0-0.2 [facility] Comment on above: Result Comment: PERF ORMED BY: [place] [address] PATHOLOGIST MINUTE CLERK FOR BASIC TRAFFIC OREN OWEN M.D. Performed By: #### B MP, AST, LIPID, ALT, TSH3, CBC #### [address] Basophils/100 WBC (Bld) 0.4 % Normal . T jonatan [facility] Comment on above: Performed By: #### B MP, AST, LIPID, ALT, TSH3, CBC #### [address] Eosinophils (Bld) [#/Vol] 0.0 10*3/uL Normal 0.0-0.45 [facility] Comment on above: Performed By: #### B MP, AST, LIPID, ALT, TSH3, CBC #### [address] Eosinophils/100 WBC (Bld) 0.0 % Normal . [facility] Comment on above: Performed By: #### B MP, AST, LIPID, ALT, TSH3, CBC #### [address] Erythrocyte distribution width (RBC) [Ratio] 15.8 % High 12.0-14.8 [facility] Comment on above: Performed By: #### B MP, AST, LIPID, ALT, TSH3, CBC #### [address] Hematocrit (Bld) [Volume fraction] 38.4 % Low 38.8-50.0 [facility] Comment on above: Performed By: #### B MP, AST, LIPID, ALT, TSH3, CBC #### [address] Hemoglobin (Bld) [Mass/Vol] 12.7 g/dL Low 13.0-17.0 [facility] Comment on above: Performed By: #### B MP, AST, LIPID, ALT, TSH3, CBC #### [address] Lymphocytes (Bld) [#/Vol] 1.2 10*3/uL Normal 1.00-4.8 [facility] Comment on above: Performed By: #### B MP, AST, LIPID, ALT, TSH3, CBC #### [address] Lymphocytes/100 WBC (Bld) 6.9 % Normal . [facility] Comment on above: Performed By: #### B MP, AST, LIPID, ALT, TSH3, CBC #### [address] MCH (RBC) [Entitic mass] 28.4 pg Normal 27.5-35.2 [facility] Comment on above: Performed By: #### B MP, AST, LIPID, ALT, TSH3, CBC #### [address] MCV (RBC) [Entitic vol] 86.1 fL Normal 83.5-101 T [facility] Comment on above: Performed By: #### B MP, AST, LIPID, ALT, TSH3, CBC #### [address] Mean Corpuscular HGB Conc 33.0 g/dL Normal 32.5-35.6 [facility] Comment on above: Performed By: #### B MP, AST, LIPID, ALT, TSH3, CBC #### [address] Monocytes (Bld) [#/Vol] 2.8 10*3/uL High 0.0-0.8 [facility] Comment on above: Performed By: #### B MP, AST, LIPID, ALT, TSH3, CBC #### [address] Monocytes/100 WBC (Bld) 15.6 % Normal . T [facility] Comment on above: Performed By: #### B MP, AST, LIPID, ALT, TSH3, CBC #### [address] Neutrophils (Bld) [#/Vol] 13.6 10*3/uL High 1.8-7.7 [facility] Comment on above: Performed By: #### B MP, AST, LIPID, ALT, TSH3, CBC #### [address] Neutrophils/100 WBC (Bld) 77.1 % Normal . [facility] Comment on above: Performed By: #### B MP, AST, LIPID, ALT, TSH3, CBC #### [address] NRBC% 0.0 /100{WBC} Normal 0-0.5 [facility] Comment on above: Performed By: #### B MP, AST, LIPID, ALT, TSH3, CBC #### [address] Platelet Estimate Decreased Normal Normal [facility] Comment on above: Performed By: #### B MP, AST, LIPID, ALT, TSH3, CBC #### [address] Platelet mean volume (Bld) [Entitic vol] 9.0 fL Normal 6.6-10.1 [facility] Comment on above: Performed By: #### B MP, AST, LIPID, ALT, TSH3, CBC #### [place] [address] [place] Platelet Morphology Normal Normal Normal [facility] Comment on above: Result Comment: PERF ORMED BY: [place] [address] PATHOLOGIST MINUTE CLERK FOR BASIC TRAFFIC OREN OWEN M.D. Performed By: #### B MP, AST, LIPID, ALT, TSH3, CBC #### [address] Platelets (Bld) [#/Vol] 135 10*3/uL Low 150-450 [facility] Comment on above: Performed By: #### B MP, AST, LIPID, ALT, TSH3, CBC #### [address] RBC (Bld) [#/Vol] 4.46 10*6/uL Normal 3.90-5.60 [facility] Comment on above: Performed By: #### B MP, AST, LIPID, ALT, TSH3, CBC #### [address] WBC (Bld) [#/Vol] 17.7 10*3/uL High 4.1-10.5 [facility] Comment on above: Performed By: #### B MP, AST, LIPID, ALT, TSH3, CBC #### [address] Serum or plasma high density lipoprotein (HDL) cholesterol measurementOrdered By: Nas Pruett on 01-17-2024 Cholesterol in HDL [Mass/Vol] 33 mg/dL Normal 23-92 [facility] Comment on above: HDL CHOL ATP-III CLA SSIFICATION Cardiovascular RiskHDL > or equal to 60 mg/dL LOWHDL < 40 mg/dL HIGH Result Comment: HDL CHOL ATP-III CLASSIFICATION Cardiovascular Risk HDL > or equal to 60 mg/dL LOW HDL < 40 mg/dL HIGH Performed By: #### B MP, AST, LIPID, ALT, TSH3, CBC #### [address] Serum or plasma total choles terol/high density lipoprotein (HDL) cholesterol mass ratOrdered By: Nas Pruett on 01-17-2024 Cholesterol.total/Sonya sterol in HDL [Mass ratio] 2.2 {ratio} Normal <5.0 [facility] Comment on above: Result Comment: PERF ORMED BY: [place] [address] PATHOLOGIST MINUTE CLERK FOR BASIC TRAFFIC OREN OWEN M.D. Performed By: #### B MP, AST, LIPID, ALT, TSH3, CBC #### [facility] [address] [place] [address] Triglyceride [Mass/volume] i n Serum or PlasmaOrdered By: Nas Pruett on 01-17-2024 Triglyceride [Mass/Vol] 67 mg/dL 0-149 [facility] Comment on above: TRIG ATP III CLASSIF ICATIONTRIG less than 150 mg/dL NormalTRIG 150-199 mg/dL Borderline highTRIG 200-500 mg/dL High TRIG greater than 500 mg/dL Very highStandard traceable to the Center for Disease Conrtrol and Prevention (CDC) test method. Troponin I High Sensitivityo n 01-17-2024 Troponin I High Sensitivity 91410.6 pg/mL Off scale high 0.0-20.0 [facility] Comment on above: Result Comment: Crit ical Result I_TnIHS_d:05187.6 Called to and read back by: WU MCDANIEL at: 01/17/2024 06:17:54 by:[id number] PERFORMED BY: [place] [address] PATHOLOGIST MINUTE CLERK FOR BASIC TRAFFIC OREN OWEN M.D. Performed By: #### B MP, AST, LIPID, ALT, TSH3, CBC #### [facility] [address] [place], [place] [id number] [facility] Troponin I.cardiac [Mass/vol ume] in Serum or Plasma by Detection limit <= 0.01 ng/Ordered By: Nas Pruett on 01-17-2024 Troponin I.cardiac DL <= 0.01 ng/mL [Mass/Vol] 05436.6 pg/mL High 0.0-20.0 [facility] Comment on above: Critical Result I_Tn IHS_d:20005.6 Called to and read back by: WU MCDANIEL at: 01/17/2024 06:17:54 by:[id number] Urine Cultureon 01-17-2024 Bacteria identified Cx Nom (U) ORGANISM: Enterococcus faecalis (O:ENTFAC) [place] Count >100,000 Aerobic RITESH Charge (PCMIC38) SUSCEPTIBILITY [...] RESISTANT TO ALL B-LACTAM DRUGS. PERFORMED BY: [place] [address] PATHOLOGIST MINUTE CLERK FOR BASIC TRAFFIC OREN OWEN M.D. Normal [facility] Comment on above: Performed By: #### C , BMP #### [address] Urine culture routineOrdered By: Justina Lara on 01-17-2024 Bacteria identified Cx Nom (U) Enterococcus faecalis Abnormal [facility] XR chest 1V portableon 01-16 XR chest 1V portable [facility] [place] [address] [place] [address] XRay Report Signed Patient: Alex Anderson MR#: [id number] [birth year] : 1945 Acct:[id number] Age/Sex: 78 / M ADM Date: 01/16/24 Loc: Room: [address] [place] [address] Type: ADM IN Attending Dr: Nas Pruett DO Copies to: MD Nas Cam, Ordering Provider: Justina Lara MD Date of [...] Corky Max M.D.01/17/2024 11:34 AM Dictation Location: [place] [address] Transcribed By: [facility] 01/17/24 1134 Dictated By: Corky Max II, MD 01/17/24 1132 Signed By: 01/17/24 1134 Normal [facility] ECG 12 lead ECGon 01-16-2024 ECG 12 lead ECG [facility] [place] [address] [place] [address] Electrocardiograph Report Signed Patient: Alex Anderson MR#: [id number] [birth year] : 1945 Acct:[id number] Age/Sex: 78 / M ADM Date: 01/16/24 Loc: Room: [address] [place] [address] Type: ADM IN Attending Dr: Nas Pruett [...] Castro MD 0 01/17/24 0952 Normal [facility] ECG 12 lead ECG [facility] [place] [address] [place] [address] Electrocardiograph Report Signed Patient: Alex Anderson MR#: [id number] 38 : 1945 Acct:[id number] Age/Sex: 78 / M ADM Date: 01/16/24 Loc: Room: [address] [place] [address] Type: ADM IN Attending Dr: Nas Pruett [...] Castro MD 0 01/17/24 0057 Normal [facility] Glucose Poct Glucometerson 0 01-16-2024 Commemt1 Glu2: Cleaned Meter Normal [facility] Comment on above: Result Comment: PERF ORMED BY: [address] [address] PATHOLOGIST MINUTE CLERK FOR BASIC TRAFFIC OREN OWEN M.D. Performed By: #### C BC, BMP #### [address] [place] [address] [place] Glucose [Mass/Vol] 118 mg/dL Normal [facility] Comment on above: Result Comment: [place] om Glucose Reference Range is dependent on time and content of last meal. Glucose of more than 200 mg/dL in a nonstressed, ambulatory subject supports the diagnosis of Diabetes Mellitus. Performed By: #### C BC, BMP #### [address] Glucose [Mass/Vol] 119 mg/dL Normal [facility] Comment on above: Result Comment: [place] om Glucose Reference Range is dependent on time and content of last meal. Glucose of more than 200 mg/dL in a nonstressed, ambulatory subject supports the diagnosis of Diabetes Mellitus. PERFORMED BY: [place] [address] PATHOLOGIST MINUTE CLERK FOR BASIC TRAFFIC OREN OWEN M.D. Performed By: #### C BC, BMP #### [address] No Panel InformationOrdered By: Nas Pruett on 01-16-2024 Bedside Glucose Comment Glu2: cleaned meter [facility] Troponin I High Sensitivityo n 01-16-2024 Troponin I High Sensitivity 29006.2 pg/mL Off scale high 0.0-20.0 [facility] Comment on above: Result Comment: Crit ical Result I_TnIHS_d:58530.2 Called to and read back by: BRIDGETTE LUIS at: 01/16/2024 20:40:51 by:[id number] PERFORMED BY: [place] [address] PATHOLOGIST MINUTE CLERK FOR BASIC TRAFFIC OREN OWEN M.D. Performed By: #### B MP, AST, LIPID, ALT, TSH3, CBC #### [address] Troponin I High Sensitivity 299204.4 pg/mL Off scale high 0.0-20.0 [facility] Comment on above: Result Comment: Crit ical Result I_TnIHS_d:701686.4 Called to and read back by: BROOKE CANDELARIA at: 01/16/2024 18:52:06 by:[email or web address] PERFORMED BY: [place] [address] PATHOLOGIST MINUTE CLERK FOR BASIC TRAFFIC OREN OWEN M.D. Performed By: #### C BC, BMP #### [address] Troponin I High Sensitivity 602017.2 pg/mL Off scale high 0.0-20.0 [facility] Comment on above: Result Comment: Crit ical Result I_TnIHS_d:807332.2 Called to and read back by: BROOKE CANDELARIA at: 01/16/2024 16:28:58 by:[id number] PERFORMED BY: [place] [phone] PATHOLOGIST MINUTE CLERK FOR BASIC TRAFFIC OREN OWEN M.D. Performed By: #### B MP, AST, LIPID, ALT, TSH3, CBC #### [address] Troponin I High Sensitivity 63357.4 pg/mL Off scale high 0.0-20.0 [facility] Comment on above: Result Comment: Crit ical Result I_TnIHS_d:49191.4 Called to and read back by: BROOKE CANDELARIA at: 01/16/2024 14:15:37 by:[email or web address] PERFORMED BY: [place] [phone] PATHOLOGIST MINUTE CLERK FOR BASIC TRAFFIC OREN OWEN M.D. Performed By: #### C BC, BMP #### [address] No Panel InformationOrdered By: Willy Lambert on 01-14-2024 Miscellaneous Pathology Test See comment [facility] Comment on above: See report. Scanned copy available in EMR. Pathology Request for Lab Co rpon 01-14-2024 Pathology Request for Lab Ashley Normal [facility] Comment on above: Order Comment: PATHO LOGY GI SPECIMEN Result Comment: See report. Scanned copy available in EMR. PERFORMED BY: [place] [address] PATHOLOGIST MINUTE CLERK FOR BASIC TRAFFIC OREN OWEN M.D. Performed By: #### P ATH TO [facility] #### [facility] [address] [place] [address] [place] Cholesterol [Mass/volume] in Serum or PlasmaOrdered By: Teo Al on 12-26-2023 Cholesterol [Mass/Vol] 91 mg/dL Low 140-200 [facility] Comment on above: Chol less than 200 m g/dl low riskChol 201-239 mg/dl borderline riskChol 240 mg/dl and greater high risk Result Comment: Chol less than 200 mg/dl low risk Chol 201-239 mg/dl borderline risk Chol 240 mg/dl and greater high risk Performed By: #### C BC, BMP #### [place] [id number] [place] Cholesterol in LDL Calc [Mas s/Vol]Ordered By: Teo Al on 12-26-2023 Cholesterol in LDL [Mass/Vol] 37 mg/dL 0-100 [facility] Comment on above: LDL ATP III CLASSIFI CATIONLDL less than 100 mg/dL OptimalLDL 100-129 mg/dL Near or above optimalLDL 130-159 mg/dL Borderline highLDL 160-189 mg/dL HighLDL greater than 189 mg/dL Very high Cholesterol in VLDL Calc [Ma ss/Vol]Ordered By: Teo Al on 12-26-2023 Cholesterol in VLDL [Mass/Vol] 18 mg/dL [facility] Lipid Panelon 12-26-2023 LDL Cholesterol,Calculated 37 mg/dL Normal 0-100 [facility] Comment on above: Result Comment: LDL ATP III CLASSIFICATION LDL less than 100 mg/dL Optimal LDL 100-129 mg/dL Near or above optimal LDL 130-159 mg/dL Borderline high LDL 160-189 mg/dL High LDL greater than 189 mg/dL Very high Performed By: #### C BC, BMP #### [facility] [address] [place] [address] [place] Triglyceride w/Reflex 94 mg/dL Normal 0-149 [facility] Comment on above: Result Comment: TRIG ATP III CLASSIFICATION TRIG less than 150 mg/dL Normal TRIG 150-199 mg/dL Borderline high TRIG 200-500 mg/dL High TRIG greater than 500 mg/dL Very high Standard traceable to the Center for Disease Conrtrol and Prevention (CDC) test method. Performed By: #### C BC, BMP #### [facility] [address] VLDL CHOLESTEROL 18 mg/dL Normal [facility] Comment on above: Performed By: #### C BC, BMP #### [facility] [address] Serum or plasma high density lipoprotein (HDL) cholesterol measurementOrdered By: Teo Al on 12-26-2023 Cholesterol in HDL [Mass/Vol] 35 mg/dL Normal 23-92 [facility] Comment on above: HDL CHOL ATP-III CLA SSIFICATION Cardiovascular RiskHDL > or equal to 60 mg/dL LOWHDL < 40 mg/dL HIGH Result Comment: HDL CHOL ATP-III CLASSIFICATION Cardiovascular Risk HDL > or equal to 60 mg/dL LOW HDL < 40 mg/dL HIGH Performed By: #### C BC, BMP #### [address] Serum or plasma total choles terol/high density lipoprotein (HDL) cholesterol mass ratOrdered By: Teo Al on 12-26-2023 Cholesterol.total/Sonya sterol in HDL [Mass ratio] 2.6 {ratio} Normal <5.0 [facility] Comment on above: Result Comment: PERF ORMED BY: [place] [address] PATHOLOGIST MINUTE CLERK FOR BASIC TRAFFIC OREN OWEN M.D. Performed By: #### C BC, BMP #### [address] Triglyceride [Mass/volume] i n Serum or PlasmaOrdered By: Teo Al on 12-26-2023 Triglyceride [Mass/Vol] 94 mg/dL 0-149 [facility] Comment on above: TRIG ATP [...] APRN, [place] X Where: [facility] Erythrocyte distribution wid th Auto (RBC) [Ratio]on 10-16-2023 Erythrocyte distribution width (RBC) [Ratio] 15.4 % High 11.0-15.0 [facility] Hematocrit Auto (Bld) [Volum e fraction]on 10-16-2023 Hematocrit (Bld) [Volume fraction] 41.3 % Low 42.0-54.0 [facility] Hemoglobin [Mass/volume] in Bloodon 10-16-2023 Hemoglobin (Bld) [Mass/Vol] 13.3 g/dL Low 14.0-18.0 [facility] Laboratory - Chemistry and C hemistry - challengeon 10-16-2023 Magnesium [Mass/Vol] 2.1 mg/dL 1.8-2.4 [facility] Urate [Mass/Vol] 5.9 mg/dL 3.5-7.2 [facility] Leukocytes [#/volume] correc phil for nucleated erythrocytes in Blood by Automated counon 10-16-2023 WBC corrected for nucl RBC Auto (Bld) [#/Vol] 9.3 10 3/uL 4.0-11.0 [facility] MCH Auto (RBC) [Entitic mass ]on 10-16-2023 MCH (RBC) [Entitic mass] 27.8 pg 25.9-34.0 [facility] MCHC Auto (RBC) [Mass/Vol]on 10-16-2023 MCHC (RBC) [Mass/Vol] 32.2 g/dL 29.9-35.2 [facility] MCV Auto (RBC) [Entitic vol] on 10-16-2023 MCV (RBC) [Entitic vol] 86.2 fL 80.0-94.0 [facility] No Panel Informationon 10-15 Phosphorus Level 2.7 mg/dL 2.6-4.7 [facility] Platelet mean volume Auto (B ld) [Entitic vol]on 10-16-2023 Platelet mean volume (Bld) [Entitic vol] 10.1 fL 9.5-13.5 [facility] Platelets Auto (Bld) [#/Vol] on 10-16-2023 Platelets (Bld) [#/Vol] 197 10 3/uL 150-450 [facility] RBC Auto (Bld) [#/Vol]on RBC (Bld) [#/Vol] 4.79 10 6/uL 4.70-6.10 [facility] UroVysion Fish and Urine Cyt o ([facility])on 10-10-2023 [facility] Diagnosis Info Invalid Interpretation Code [facility] Comment on above: Result Comment: A:Ur ine,Urine:Bladder [...] on: 10/10/2023 11:17:43 Performed By: #### 1 [id number] #### [facility] [address] [place] [address] Consent for Procedure/Surger yon 10-08-2023 Consent for Procedure/Surgery [id number] [facility] Ambulatory Visit Summaryon 0 10-07-2023 Ambulatory [...] Schedule the Following Appointments Follow Up with ARLEEN CASILLAS, Katia Hall, URL When: Where: [facility] [address], [place] [phone] Medications What How Much When Instructions Unchanged [...] is inserted (more content not included)... Normal [facility] 2023 [facility] [id number] Normal [facility] Patient Educationon 10-03-19 24 Patient [...] these instructions at home: Medicines ? Take asxa-pbm-xfdvtxf and prescription medicines only as told by [...] provider. Document Revised: 01/31/2021 Document Reviewed: 01/31/2021 [employer] Patient Education ? 2022 [employer] [facility] UroVysion Fish and Urine Cyt o ([facility])on 10-03-2023 [facility] Method of Extraction Bladder Wash [facility] Comment on above: Performed By: #### 1 [id number] #### [facility] [address] [place] [address] [facility] Number of Jars 1 Invalid Interpretation Code [facility] Comment on above: Performed By: #### 1 [id number] #### [facility] [address] [place] [address] [facility] Specimen Urine Normal [facility] Comment on above: Performed By: #### 1 [id number] #### [facility] [address] [place] [address] [facility] Type of Service Technical Only Normal [facility] Comment on above: Performed By: #### 1 [id number] #### [facility] [address] [place] [address] Urology Office/Clinic Noteon 10-03-2023 Urology Office/Clinic Note [...] Urinary retention (R33.9: Retention of urine, unspecified) [facility] ER on 09/15/22 due to [...] with Villarreal. Most recently, pt presented to [facility] ER 09/29/23 and 09/30/23 due [...] [facility] [address], [place] [address] [phone] Additional Instructions: Cysto/FISH/cytol in 6 mos & [...] with uri (more content not included)... Normal [facility] Comment on above: Result Comment: Elec tronically Signed By: Katia JACOBS MD\.br\Date and Time Signed: 10/03/23 14:24 EDT\.br\Electronically Co-Signed By: Na Gerardobr\Date and Time Co-Signed: 10/03/23 14:19 EDT ED Note-Physicianon 10-02-19 ED Note-Physician [id number] Normal [facility] Laboratory - Chemistry and C hemistry - challengeon 09-30-2023 Bilirubin Ql (U) Negative [facility] Glucose (U) [Mass/Vol] [facility] Ketones Ql (U) Negative [facility] pH (U) 7.0 [pH] [facility] Specific gravity (U) [Rel density] 1.010 [facility] Urobilinogen (U) [Mass/Vol] 0.2 mg/dL [facility] Laboratory - Specimen inform ationon 09-30-2023 Color (U) LtYellow [facility] Laboratory - Urinalysison Leukocyte esterase Test strip Ql (U) Large [facility] Nitrite Ql (U) Positive [facility] Protein Ql (U) 30 [facility] CT abdomen pelvis wo conon 0 08-18-2023 CT abdomen pelvis wo con [facility] [place] [address] CT Scan Report Signed Patient: Alex Anderson MR#: [id number] 38 : 1945 Acct:[id number] Age/Sex: 77 / M ADM Date: 08/18/23 Loc: CT Room: Type: [facility] Attending Dr: Margarito Valentine MD [...] aneurysm suboptimally evaluated without IV contrast. 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 The stent is suboptimally evaluated due to lack of IV contrast. 2. Prostatomegaly with Villarreal catheter in place. There appears to be urinary bladder wall thickening and inflammatory changes suspicious for cystitis. Correlation with urinalysis is recommended. Impression dictated by: Rogelio Agustin Jr., ElizabethOSigrid08/18/2023 3:18 PM Dictation Location: [place] [address] Transcribed By: [facility] 08/18/23 1518 Dictated By: Rogelio Agustin Jr, DO 08/18/23 1503 Signed By: 08/18/23 1518 Normal [facility] ISTAT XRay CREon 08-18-2023 ISTAT GFR 26.776 Normal [facility] Comment on above: Result Comment: PERF ORMED BY: [place] [address] PATHOLOGIST MINUTE CLERK FOR BASIC TRAFFIC OREN OWEN M.D. Performed By: #### B MP, AST, LIPID, ALT, TSH3, CBC #### [address] No Panel InformationOrdered By: Margarito Valentine on 08-18-2023 Bedside Estimated GFR (eGFR) 26.776 [facility] Whole blood creatinine measu rementOrdered By: Margarito Valentine on 08-18-2023 Creatinine [Mass/Vol] 2.4 mg/dL High 0.6-1.3 [facility] Comment on above: ER/ESD physician is notified/shown all ISTAT results.Critical values may be confirmed by laboratory testing ifdeemed necessary by ER attending doctor. Result Comment: ER/E SD physician is notified/shown all ISTAT results. Critical values may be confirmed by laboratory testing if deemed necessary by ER attending doctor. Performed By: #### B MP, AST, LIPID, ALT, TSH3, CBC #### [facility] [address] [id number] [facility] ED Note-Physicianon 08-07-19 ED Note-Physician [id number]#1.00TIFF Normal [facility] ED Note-Physicianon 08-06-19 ED Note-Physician [id number]#1.00TIFF Normal [facility] ED Note-Physician [id number]#1.00TIFF Normal [facility] ED Note-Physician [id number]#1.00TIFF Normal [facility] Lab Reportson 08-06-2023 Lab Reports [id number]#1.00TIFF Normal [facility] Lab Reports [id number]#1.00TIFF Normal [facility] Physician Orderon 07-04-2023 Physician Order [id number]#1.00TIFF Normal [facility] Patient Educationon 06-30-19 Patient Education Urology Acute [...] these instructions at home: Medicines ? Take jwtc-wvw-gkwcjfw and prescription medicines only as told by [...] provider. Document Revised: 01/31/2021 Document Reviewed: 01/31/2021 [employer] Patient Education ? 2022 [employer]. [facility] Urology Office/Clinic Noteon 06-30-2023 Urology Office/Clinic Note Chief Complaint [facility] F/u to Diann done 06/10/23. Dx: [...] [facility] [address], [place] [address]- [phone] Additional Instructions: 1 day for catheter removal [...] Use:. Cigarettes, (more content not included)... Normal [facility] Comment on above: Result Comment: Elec tronically Signed By: Katia JACOBS MD\.br\Date and Time Signed: 06/30/23 14:32 EST\.br\Electronically Co-Signed By: Apple Escoto\.br\Date and Time Co-Signed: 06/30/23 14:30 EST [facility] Fish and Urine Cyt o ([facility])on 06-26-2023 [facility] Revision Information Invalid Interpretation Code [facility] Comment on above: Result Comment: Brayan ection Reason -[ Fredi Stephen, 06/26/23 - 10:32 ] Corrected report issued to update PMS/PWS. The diagnosis remains unchanged. Correction Notes - Performed By: #### 1 [id number] ####[facility] [id number] [place] [address] Ambulatory Visit Summaryon 0 06-16-2023 Ambulatory Visit Summary ALEX ANDERSON :1945 Visit Date:06/16/2023 Ambulatory Visit Instructions Your Diagnosis BPH with urinary obstruction Your Care Team Attending Physician - Katia JACOBS MD Primary Care Physician - IDANIA CASILLAS, STANLEY Rich This Is Your Medications List acetaminophen-hydrocodone ([place] 325 mg-7.5 mg oral tablet) albuterol (Albuterol [...] Katia JACOBS MD Where: [facility] Normal [facility] Consent for Procedure/Surger yon 06-10-2023 Consent for Procedure/Surgery [id number]#1.00TIFF [facility] Consent for Treatmenton 05-26 Consent for Treatment [id number]#1.00TIFF [facility] IntraOperative Documentson 0 06-10-2023 IntraOperative Documents [id number]#1.00TIFF [facility] Main OR Intraoperative Recor don 06-10-2023 Main OR Intraoperative Record IntraOp Document Type FTURO Summary Primary Physician: Katia JACOBS MD Finalized Date/Time: 06/10/23 15:18:46 Pt. Name: ANDERSONALEX/Sex: 1945 Male Med Rec #: [id number] Physician: Katia JACOBS MD Financial #: [id number] Pt. 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 Name: ALEX ANDERSON/Sex: 1945 Male Med Rec #: [id number] Physician: Katia JACOBS MD Financial #: [id number] Pt. Type: O Room/Bed: / Admit/Disch: 06/10/23 [...] GLASSES; BILATERAL Limitations: UP AD JOSIAH. PT HUGHES Comment: CATARACT LENS IMPLANTS Complaints of Pain: [...] WOLFGANG Horton RN, Ruthann 06/10/23 14:49 Normal [facility] Operative Reporton Operative Report Patient: MELISSA ANDERSON [...] satisfactory condition, Discharge instructions are provided. Normal [facility] Comment on above: Result Comment: Elec tronically [...] with antibiotic coverage, Follow up arranged. Normal [facility] Comment on above: Result Comment: Elec tronically Signed By: ARLENE CASILLAS, Katia Fall.gonsalo\Date and Time Signed: 06/10/23 15:20 EST [facility] Fish and Urine Cyt o ([facility])on 06-10-2023 [facility] Method of Extraction Catheterized Normal [facility] Comment on above: Performed By: #### 1 [id number] ####[facility] [id number] [facility] [place] [address] [facility] Number of Jars 1 Invalid Interpretation Code [facility] Comment on above: Performed By: #### 1 [id number] ####[facility] [id number] [facility] [place] [address] [facility] Specimen Urine Normal [facility] Comment on above: Performed By: #### 1 [id number] ####[facility] [id number] [facility] [place] [address] [facility] Type of Service Technical Only Normal [facility] Comment on above: Performed By: #### 1 [id number] ####[facility] [id number] [facility] [place] [address] Alanine aminotransferase [En zymatic activity/volume] in Serum or PlasmaOrdered By: Celia Griffin on 04-08-2023 ALT [Catalytic activity/Vol] 17 U/L 7-52 [facility] Albumin [Mass/volume] in Ser um or Plasma by Bromocresol green (BCG) dye binding methoOrdered By: Celia Griffin on 04-08-2023 Albumin BCG dye [Mass/Vol] 4.2 g/dL 3.5-5.7 [facility] Alkaline phosphatase [Enzyma tic activity/volume] in Serum or PlasmaOrdered By: Celia Griffin on 04-08-2023 ALP [Catalytic activity/Vol] 72 U/L 34-104 [facility] Aspartate aminotransferase [ Enzymatic activity/volume] in Serum or PlasmaOrdered By: Celia Griffin on 04-08-2023 AST [Catalytic activity/Vol] 16 U/L 13-39 [facility] Automated erythrocytes count in urine sediment (number/area)Ordered By: Celia Griffin on 04-08-2023 RBC Auto (Urine sed) [#/Area] 3-4 [HPF] 0-4 [facility] Automated leukocytes count i n urine sediment (number/area)Ordered By: Celia Griffin on 04-08-2023 WBC Auto (Urine sed) [#/Area] 50-100 [HPF] 0-4 [facility] Bilirubin Test strip Ql (U)O rdered By: Celia Griffin on 04-08-2023 Bilirubin Ql (U) Negative Negative [facility] Bilirubin.total [Mass/volume ] in Serum or PlasmaOrdered By: Celia Griffin on 04-08-2023 Bilirubin [Mass/Vol] 0.5 mg/dL 0.3-1.0 [facility] Calcium [Mass/volume] in Ser um or PlasmaOrdered By: Celia Griffin on 04-08-2023 Calcium [Mass/Vol] 9.3 mg/dL 8.6-10.3 [facility] Carbon dioxide, total [Moles /volume] in Serum or PlasmaOrdered By: Celia Griffin on 04-08-2023 CO2 [Moles/Vol] 31.6 mmol/L 21.0-31.0 [facility] Chloride [Moles/volume] in S marium or PlasmaOrdered By: Celia Griffin on 04-08-2023 Chloride [Moles/Vol] 107 mmol/L 98-107 [facility] Cholesterol [Mass/volume] in Serum or PlasmaOrdered By: Teo Al on 04-08-2023 Cholesterol [Mass/Vol] 107 mg/dL 140-200 [facility] Comment on above: Chol less than 200 m g/dl low riskChol 201-239 mg/dl borderline riskChol 240 mg/dl and greater high risk Cholesterol in LDL Calc [Mas s/Vol]Ordered By: Teo Al on 04-08-2023 Cholesterol in LDL [Mass/Vol] 47 mg/dL 0-100 [facility] Comment on above: LDL ATP III CLASSIFI CATIONLDL less than 100 mg/dL OptimalLDL 100-129 mg/dL Near or above optimalLDL 130-159 mg/dL Borderline highLDL 160-189 mg/dL HighLDL greater than 189 mg/dL Very high Cholesterol in VLDL Calc [Ma ss/Vol]Ordered By: Teo Al on 04-08-2023 Cholesterol in VLDL [Mass/Vol] 26 mg/dL [facility] Color Auto (U)Ordered By: Jonh Griffin on 04-08-2023 Color (U) Yellow Yellow [facility] Creatinine [Mass/volume] in Serum or PlasmaOrdered By: Celia Griffin on 04-08-2023 Creatinine [Mass/Vol] 1.41 mg/dL 0.70-1.30 [facility] Creatinine [Mass/volume] in UrineOrdered By: Celia Griffin on 04-08-2023 Creatinine (U) [Mass/Vol] 90.0 mg/dL 14.0-26.0 [facility] Erythrocyte distribution wid th Auto (RBC) [Ratio]Ordered By: Celia Griffin on 04-08-2023 Erythrocyte distribution width (RBC) [Ratio] 15.7 % 12.0-14.8 [facility] Ferritin [Mass/volume] in Se rum or PlasmaOrdered By: Celia Griffin on 04-08-2023 Ferritin [Mass/Vol] 34.1 ng/mL 23.9-336.2 [facility] Folate [Mass/volume] in Seru m or PlasmaOrdered By: Celia Griffin on 04-08-2023 Folate [Mass/Vol] 34.0 ng/mL >5.9 [facility] Comment on above: Folate reference ran ge: >5.9 ng/mlThe WHO technical consultation on folate and vitamin [id number] has determined that folate concentrations lessthan 4 ng/ml are considered deficient. Globulin Calc (S) [Mass/Vol] Ordered By: Celia Griffin on 04-08-2023 Globulin (S) [Mass/Vol] 2.8 g/dL [facility] Glucose [Mass/volume] in Ser um or PlasmaOrdered By: Celia Griffin on 04-08-2023 Glucose [Mass/Vol] 107 mg/dL 70-100 [facility] Comment on above: ADA recommended refe rence rangeRandom Glucose Reference Range is dependent on time and content of last meal. Glucose of more than 200 mg/dL in a nonstressed, ambulatory subject supports the diagnosis of Diabetes Mellitus. Hematocrit Auto (Bld) [Volum e fraction]Ordered By: Celia Griffin on 04-08-2023 Hematocrit (Bld) [Volume fraction] 43.8 % 38.8-50.0 [facility] Hemoglobin [Mass/volume] in BloodOrdered By: Celia Griffin on 04-08-2023 Hemoglobin (Bld) [Mass/Vol] 14.3 g/dL 13.0-17.0 [facility] Iron [Mass/volume] in Serum or PlasmaOrdered By: Celia Griffin on 04-08-2023 Iron [Mass/Vol] 53 ug/dL 50-212 [facility] Iron binding capacity [Mass/ volume] in Serum or PlasmaOrdered By: Celia Griffin on 04-08-2023 Iron binding capacity [Mass/Vol] 370 ug/dL 255-450 [facility] Iron saturation [Mass Fracti on] in Serum or PlasmaOrdered By: Celia Griffin on 04-08-2023 Iron saturation [Mass fraction] 14.3 % 20-50 [facility] Ketones Auto test strip (U) [Mass/Vol]Ordered By: Celia Griffin on 04-08-2023 Ketones (U) [Mass/Vol] Negative Negative [facility] - UrinalysisOrder ed By: Celia Griffin on 04-08-2023 Hyaline casts LM Ql (Urine sed) 9-19 [LPF] 0-8 [facility] Leukocytes [#/volume] correc phil for nucleated erythrocytes in Blood by Automated counOrdered By: Celia Griffin on 04-08-2023 WBC corrected for nucl RBC Auto (Bld) [#/Vol] 8.4 10*3/uL 4.1-10.5 [facility] MCH Auto (RBC) [Entitic mass ]Ordered By: Celia Griffin on 04-08-2023 MCH (RBC) [Entitic mass] 27.3 pg 27.5-35.2 [facility] MCHC Auto (RBC) [Mass/Vol]Or dered By: Celia Griffin on 04-08-2023 MCHC (RBC) [Mass/Vol] 32.6 g/dL 32.5-35.6 [facility] MCV Auto (RBC) [Entitic vol] Ordered By: Celia Griffin on 04-08-2023 MCV (RBC) [Entitic vol] 83.8 fL 83.5-101 [facility] Magnesium [Mass/volume] in S marium or PlasmaOrdered By: Celia Griffin on 04-08-2023 Magnesium [Mass/Vol] 2.2 mg/dL 1.9-2.7 [facility] Nitrite Test strip Ql (U)Ord ered By: Celia Griffin on 04-08-2023 Nitrite Ql (U) Positive Negative [facility] No Panel InformationOrdered By: Celia Griffin on 04-08-2023 Estimated GFR (CKD-EPI) 50.692 mL/Min [facility]acy Creatinine Clearance (Chem N/A [facility] Parathyrin.intact [Mass/volu me] in Serum or PlasmaOrdered By: Celia Griffin on 04-08-2023 Parathyrin.intact [Mass/Vol] 76.6 pg/mL 1288 [facility] Phosphate [Mass/volume] in S marium or PlasmaOrdered By: Celia Griffin on 04-08-2023 Phosphate [Mass/Vol] 2.8 mg/dL 2.5-4.5 [facility] Platelet mean volume Auto (B ld) [Entitic vol]Ordered By: Celia Griffin on 04-08-2023 Platelet mean volume (Bld) [Entitic vol] 8.6 fL 6.6-10.1 [facility] Platelets Auto (Bld) [#/Vol] Ordered By: Celia Griffin on 04-08-2023 Platelets (Bld) [#/Vol] 201 10*3/uL 150-450 [facility] Potassium [Moles/volume] in Serum or PlasmaOrdered By: Celia Griffin on 04-08-2023 Potassium [Moles/Vol] 4.5 mmol/L 3.5-5.1 [facility] Protein Auto test strip (U) [Mass/Vol]Ordered By: Celia Griffin on 04-08-2023 Protein (U) [Mass/Vol] Trace mg/dL Negative [facility] Protein [Mass/volume] in Ser um or PlasmaOrdered By: Celia Griffin on 04-08-2023 Protein [Mass/Vol] 7.0 g/dL 6.4-8.9 [facility] Protein [Mass/volume] in Uri neOrdered By: Celia Griffin on 04-08-2023 Protein (U) [Mass/Vol] 30 mg/dL 0-9 [facility] RBC Auto (Bld) [#/Vol]Ordere d By: Celia Griffin on 04-08-2023 RBC (Bld) [#/Vol] 5.22 10*6/uL 3.90-5.60 [facility] Serum or plasma albumin/glob ulin mass ratioOrdered By: Celia Griffin on 04-08-2023 Albumin/Globulin [Mass ratio] 1.5 {ratio} [facility] Serum or plasma anion gap de terminationOrdered By: Celia Griffin on 04-08-2023 Anion gap [Moles/Vol] 8.9 mmol/L 6.0-15.0 [facility] Serum or plasma high density lipoprotein (HDL) cholesterol measurementOrdered By: Teo Al on 04-08-2023 Cholesterol in HDL [Mass/Vol] 34 mg/dL 23-92 [facility] Comment on above: HDL CHOL ATP-III CLA SSIFICATION Cardiovascular RiskHDL > or equal to 60 mg/dL LOWHDL < 40 mg/dL HIGH Serum or plasma total choles terol/high density lipoprotein (HDL) cholesterol mass ratOrdered By: Teo Al on 04-08-2023 Cholesterol.total/Sonya sterol in HDL [Mass ratio] 3.1 {ratio} <5.0 [facility] Sodium [Moles/volume] in Ser um or PlasmaOrdered By: Celia Griffin on 04-08-2023 Sodium [Moles/Vol] 143 mmol/L 136-145 [facility] Specific gravity Auto test s trip (U) [Rel density]Ordered By: Celia Griffin on 04-08-2023 Specific gravity (U) [Rel density] 1.017 1.001-1.03 0 [facility] Squamous epithelial cells de tection in urine sediment by light microscopyOrdered By: Celia Griffin on 04-08-2023 Epithelial cells.squamous LM Ql (Urine sed) 0-1 [HPF] 0-2 [facility] Transferrin [Mass/volume] in Serum or PlasmaOrdered By: Celia Griffin on 04-08-2023 Transferrin [Mass/Vol] 264 mg/dL 203-362 [facility] Triglyceride [Mass/volume] i n Serum or PlasmaOrdered By: Teo Al on 04-08-2023 Triglyceride [Mass/Vol] 131 mg/dL 0-149 [facility] Comment on above: TRIG ATP III CLASSIF ICATIONTRIG less than 150 mg/dL NormalTRIG 150-199 mg/dL Borderline highTRIG 200-500 mg/dL High TRIG greater than 500 mg/dL Very highStandard traceable to the Center for Disease Conrtrol and Prevention (CDC) test method. Urate [Mass/volume] in Serum or PlasmaOrdered By: Celia Griffin on 04-08-2023 Urate [Mass/Vol] 6.0 mg/dL 4.4-7.6 [facility] Urea nitrogen [Mass/volume] in Serum or PlasmaOrdered By: Celia Griffin on 04-08-2023 Urea nitrogen [Mass/Vol] 27 mg/dL 7-25 [facility] Urine bacteria detection by automated methodOrdered By: Celia Griffin on 04-08-2023 Bacteria Auto Ql (U) 4+ None Seen [facility] Urine clarity by refractomet ry automatedOrdered By: Celia Griffin on 04-08-2023 Clarity Refractometry automated (U) Cloudy Clear [facility] Urine glucose measurement by automated test strip (mass/volume)Ordered By: Celia Griffin on 04-08-2023 Glucose Auto test strip (U) [Mass/Vol] Normal mg/dL Normal [facility] Urine hemoglobin detection b y automated test stripOrdered By: Celia Griffin on 04-08-2023 Hemoglobin Auto test strip Ql (U) 1+ Negative [facility] Urine leukocyte esterase det ection by automated test stripOrdered By: Celia Griffin on 04-08-2023 Leukocyte esterase Auto test strip Ql (U) 4+ Negative [facility] Urine protein/creatinine rat ioOrdered By: Celia Griffin on 04-08-2023 Protein/Creatinine (U) [Ratio] 333 mg/g{Cre} 0-200 [facility] Urobilinogen Auto test strip (U) [Mass/Vol]Ordered By: Celia Griffin on 04-08-2023 Urobilinogen (U) [Mass/Vol] Normal mg/dL Normal [facility] Vitamin B12 ser/plasOrdered By: Celia Griffin on 04-08-2023 Cobalamin (Vitamin B12) [Mass/Vol] 301 pg/mL 180-914 [facility] Vitamin D+Metabolites [Mass/ volume] in Serum or PlasmaOrdered By: Celia Griffin on 04-08-2023 Vitamin D+Metabolites [Mass/Vol] 37.5 ng/mL 30-100 [facility] Comment on above: VITAMIN D STATUS 25( [place])VITAMIN D RANGE (ng/mL) Deficient <20 Insufficient 20 to <30Sufficient 30 to 100Reference: Sixto MF,Federico NC, Palomo LESLIE, et al. Evaluation,treatment, and prevention of vitamin D deficiency; an Endocrine Society clinical practice guideline. JCEM. 2010; 96(7):1911-30. pH Auto test strip (U)Ordere d By: Celia Griffin on 04-08-2023 pH (U) 7.0 [pH] 5.0-9.0 [facility] Office Visit (Cardiology)on 01-22-2023 Follow-up visit Diagnoses/Problems [...] Lipid Panel; Status:Active - Retrospective Authorization; Requested for:[id number]; Overweight with body mass index (BMI) of [...] we can help. You may also call 7-973-OKJONOW for free resources and assistance.; Status:Complete - [...] negative for complaint. Vitals Vital Signs Recorded: [id number] 09:57AM Heart Rate72, L Radial Utqkytmj955, LUE, Sitting Itfjzjzec02, LUE, Sitting Height6 ft 2 in Uwfvgh250 lb BMI Nuyoxijyem84.35 kg/m2 BSA Calculat (more content not included)... [facility] Tobacco Screening.on 023 Fall risk assessment a) No falls within the last year [facility] [employer] [address] [employer] DO Work Phone: Tobacco use status CPHS a) Yes M -[facility] [employer] [address] [employer] DO Work Phone: Tobacco Screening. Yes -[facility] [employer] [address] [employer] DO Work Phone: CULTURE URINEon 09-18-2022 CULTURE URINE Isolate 1 Pseudomonas aeruginosa >100,000 cfu/mL of ORGANISM 1 Pseudomonas aeruginosa ANTIBIOTIC M.I.C RX STATUS Piperacillin/Tazobactam <=4 S F Ceftazidime <=1 S F Imipenem 2 S F Amikacin <=2 S F Gentamicin 2 S F Tobramycin <=1 S F Ciprofloxacin <=0.25 S F Levofloxacin <=0.12 S F Normal [facility] Comment on above: Performed By: #### U RTPCR #### [facility] [address] [place] [address] Dr. Karen Pierce CALCULI, URINARYon 3 2,8 Dihydroxyadenine Normal [facility] Comment on above: Performed By: #### U A #### [facility] [address] [place] [address] Dr. Karen Pierce Ammonium Acid Urate Normal [facility] Comment on above: Performed By: #### U A #### [facility] [address] [address] [address] Karen Pierce Bilirubin Ql (U) Normal [facility] Comment on above: Performed By: #### U A #### [facility] [address] [place] [address] Dr. Karen Pierce Ca Oxalate Dihydrate Normal [facility] Comment on above: Performed By: #### U A #### [facility] [address] [address] [address] Karen Pierce CaHPO4 (Brushite) [facility] Comment on above: Performed By: #### U A #### [facility] [address] [address] [address] Karen Pierce Calcium Bilirubinate Normal [facility] Comment on above: Performed By: #### U A #### [facility] [address] [address] [address] Karen Pierce Calcium Carbonate [facility] Comment on above: Performed By: #### U A #### [facility] [address] [address] [address] Karen Pierce Calcium Oxalate Monohydrate 100 % [facility] Comment on above: Performed By: #### U A #### [facility] [address] [place] [address] Dr. Karen Pierce Calcium Palmitate [facility] Comment on above: Performed By: #### U A #### [facility] [address] [place] [address] Dr. Karen Pierce Calcium Phosphate [facility] Comment on above: Performed By: #### U A #### [facility] [address] [address] [address] Karen Pierce Calcium Stearate [facility] Comment on above: Performed By: #### U A #### [facility] [address] [address] [address] Karen Pierce Carbonate Apatite [facility] Comment on above: Performed By: #### U A #### [facility] [address] [address] [address] Karen Pierce Cellular Material [facility] Comment on above: Performed By: #### U A #### [facility] [address] [address] [address] Karen Pierce Cholesterol [facility] Comment on above: Performed By: #### U A #### [facility] [address] [address] [address] Karen Pierce Color (U) Brown [facility] Comment on above: Performed By: #### U A #### [facility] [address] [address] [address] Karen Pierce Comment Normal [facility] Comment on above: Performed By: #### U A #### [facility] [address] [place] [address] Dr. Karen Pierce Comment: Comment Normal [facility] Comment on above: Result Comment: Hyacinth rhodes questions regarding Calculi Analysis contact [facility] at: [phone]. Performed By: #### U A #### [facility] [address] [address] [address] Karen Pierce Composition Comment Normal [facility] Comment on above: Result Comment: Perc entage (Represents the % composition) Performed By: #### U A #### [facility] [address] [place] [address] Dr. Karen Pierce Cystine Normal [facility] Comment on above: Performed By: #### U A #### [facility] [address] [place] [address] Dr. Karen Pierce Disclaimer: Comment [facility] Comment on above: Result Comment: This test was developed and its performance characteristics determined by [facility]. It has not been cleared or approved by the Food and Drug Administration. Performed By: #### U A #### [facility] [address] [place] [address] Dr. Karen Pierce Dried Blood Normal [facility] Comment on above: Performed By: #### U A #### [facility] [address] [place] [address] Dr. Karen Pierce Drug or Metabolite Normal [facility] Comment on above: Performed By: #### U A #### [facility] [address] [place] [address] Dr. Karen Pierce Hydroxyapatite [facility] Comment on above: Performed By: #### U A #### [facility] [address] [place] [address] Dr. Karen Pierce Mg NH4 PO4 (Struvite) Normal [facility] Comment on above: Performed By: #### U A #### [facility] [address] [address] [address] Karen Pierce MgHPO4 ([facility]) [facility] Comment on above: Performed By: #### U A #### [facility] [address] [address] [address] Karen Pierce Other component(s) [facility] Comment on above: Performed By: #### U A #### [facility] [address] [address] [address] Karen Pierce PDF . Normal [facility] Comment on above: Performed By: #### U A #### [facility] [address] [address] [address] Karen Pierce Photo Comment [facility] Comment on above: Result Comment: Phot ograph will follow under a separate cover Performed By: #### U A #### [facility] [address] [place] [address] Dr. Karen Pierce Please note: Comment [facility] Comment on above: Result Comment: Calc shirley report will follow via computer, mail or office clinician delivery. Performed By: #### U A #### [facility] [address] [place] [address] Dr. Karen Pierce Size 5x5 [facility] Comment on above: Result Comment: Mult iple pieces received. Dimensions of the largest piece reported. Performed By: #### U A #### [facility] [address] [place] [address] Dr. Karen Pierce Sodium Acid Urate [facility] Comment on above: Performed By: #### U A #### [facility] [address] [place] [address] Dr. Karen Pierce Source Comment [facility] Comment on above: Result Comment: Urin evelin Bladder Performed By: #### U A #### [facility] [address] [place] [address] Dr. Karen Pierce Triamterene [facility] Comment on above: Performed By: #### U A #### [facility] [address] [address] [address] Karen Pierce Uric Acid Normal [facility] Comment on above: Performed By: #### U A #### [facility] [address] [place] [address] Dr. Karen Pierce Uric Acid Dihydrate Normal [facility] Comment on above: Performed By: #### U A #### [facility] [address] [place] [address] Dr. Karen Pierce Weight 158 mg Normal [facility] Comment on above: Performed By: #### U A #### [facility] [address] [place] [address] Dr. Karen Pierce Xanthine Normal [facility] Comment on above: Performed By: #### U A #### [facility] [address] [place] [address] Dr. Karen Pierce ER URINE PROFILEon 3 Bilirubin Ql (U) Negative Normal NEGATIVE [facility] Comment on above: Performed By: #### U MICRO, ERUR #### [facility] [address] [place] [address] Dr. Karen Pierce Clarity (U) CLEAR Normal CLEAR [facility] Comment on above: Performed By: #### U MICRO, ERUR #### [facility] [address] [place] [address] Dr. Karen Pierce Color (U) YELLOW Normal YELLOW [facility] Comment on above: Performed By: #### U MICRO, ERUR #### [facility] [address] [place] [address] Dr. Karen Pierce ERUAHD A micrscopic examina tion will be performed if indicated. Normal [facility] Comment on above: Performed By: #### U MICRO, ERUR #### [facility] [address] [place] [address] Dr. Karen Pierce Glucose Ql (U) Negative Normal NEGATIVE [facility] Comment on above: Performed By: #### U MICRO, ERUR #### [facility] [address] [place] [address] Dr. Karen Pierce Hemoglobin Ql (U) LARGE Abnormal NEGATIVE [facility] Comment on above: Performed By: #### U MICRO, ERUR #### [facility] [address] [address] [address] Karen Pierec Ketones Ql (U) Negative Normal NEGATIVE [facility] Comment on above: Performed By: #### U MICRO, ERUR #### [facility] [address] [place] [address] Dr. Karen Pierce LEUKOCYTES LARGE Abnormal NEGATIVE [facility] Comment on above: Performed By: #### U MICRO, ERUR #### [facility] [address] [place] [address] Dr. Karen Pierce Nitrite Ql (U) Positive Abnormal NEGATIVE [facility] Comment on above: Performed By: #### U MICRO, ERUR #### [facility] [address] [place] [address] Dr. Karen Pierce pH (U) 5.5 [pH] Normal 5-9 [facility] Comment on above: Performed By: #### U MICRO, ERUR #### [facility] [address] [place] [address] Dr. Karen Pierce Protein (U) [Mass/Vol] 100 mg/dL Abnormal NEGAT RAJI/ TRACE [facility] Comment on above: Performed By: #### U MICRO, ERUR #### [facility] [address] [place] [address] Dr. Karen Pierce SPEC GRAVITY 1.020 Normal 1.005-<=1. 025 [facility] Comment on above: Performed By: #### U MICRO, ERUR #### [facility] [address] [place] [address] Dr. Karen Pierce UR MICRO IND INDICATED Normal [facility] Comment on above: Performed By: #### U MICRO, ERUR #### [facility] [address] [place] [address] Dr. Karen Pierce Urobilinogen Qn (U) 1.0 {Tonio'U}/dL Normal 0.2 - 1. 0 [facility] Comment on above: Performed By: #### U MICRO, ERUR #### [facility] [address] [place] [address] Dr. Karen Pierce URINE MICROSCOPIC ONLYon BACTERIA SMALL Abnormal NONE SEEN [facility] Comment on above: Performed By: #### U MICRO, ERUR #### [facility] [address] [place] [address] Dr. Karen Pierce Bacteria identified Cx Nom (U) INDICATED Normal [facility] Comment on above: Performed By: #### U MICRO, ERUR #### [facility] [address] [place] [address] Dr. Karen Pierce CAST NONE SEEN Normal NONE SEEN [facility] Comment on above: Performed By: #### U MICRO, ERUR #### [facility] [address] [place] [address] Dr. Karen Pierce Crystals LM Nom (Urine sed) NONE SEEN Normal NONE SEEN [facility] Comment on above: Performed By: #### U MICRO, ERUR #### [facility] [address] [place] [address] Dr. Karen Pierce Epithelial cells LM Ql (Urine sed) NONE SEEN Normal NONE SEEN /RARE [facility] Comment on above: Performed By: #### U MICRO, ERUR #### [facility] [address] [place] [address] Dr. Karen Pierce MUCOUS NONE SEEN Normal NONE SEEN [facility] Comment on above: Performed By: #### U MICRO, ERUR #### [facility] [address] [place] [address] Dr. Karen Pierce RBC (U) [#/Vol] /uL Abnormal 0-2 [facility] Comment on above: Performed By: #### U MICRO, ERUR #### [facility] [address] [place] [address] Dr. Karen Pierce WBC 50-75 Abnormal NONE SEEN [facility] Comment on above: Performed By: #### U MICRO, ERUR #### [facility] [address] [place] [address] Dr. Karen Pierce PTH INTACTon 09-05-2022 PTH, Intact 38 pg/mL Normal 15-65 [facility] Comment on above: Performed By: #### P THINT #### [facility] [address] [place] [address] Dr. Karen Pierce FERRITINon 09-04-2022 Ferritin [Mass/Vol] 49.0 ng/mL Normal 26.0-388.0 [facility] Comment on above: Performed By: #### U RTPCR #### [facility] [address] [place] [address] Dr. Karen Pierce IRON AND TIBCon 09-04-2022 % SATURATION 10.3 % Normal [facility] Comment on above: Performed By: #### U RTPCR #### [facility] [address] [place] [address] Dr. Karen Pierce Iron [Mass/Vol] 33.0 ug/dL Critically low 65.0-175.0 [facility] Comment on above: Performed By: #### U RTPCR #### [facility] [address] [place] [address] Dr. Karen Pierce TIBC DIRECT 319.0 ug/dL Normal 250.0-450. 0 [facility] Comment on above: Performed By: #### U RTPCR #### [facility] [address] [place] [address] Dr. Karen Pierce UA RANDOMon 09-04-2022 Bilirubin Ql (U) Negative Normal NEGATIVE [facility] Comment on above: Performed By: #### U A #### [facility] [address] [place] [address] Dr. Karen Pierce Clarity (U) CLEAR Normal CLEAR [facility] Comment on above: Performed By: #### U A #### [facility] [address] [place] [address] Dr. Karen Pierce Color (U) LT. YELLOW Normal YELLOW [facility] Comment on above: Performed By: #### U A #### [facility] [address] [place] [address] Dr. Karen Pierce Glucose Ql (U) Negative Normal NEGATIVE [facility] Comment on above: Performed By: #### U A #### [facility] [address] [place] [address] Dr. Karen Pierce Hemoglobin Ql (U) MODERATE Abnormal NEGATIVE [facility] Comment on above: Performed By: #### U A #### [facility] [address] [place] [address] Dr. Karen Pierce Ketones Ql (U) Negative Normal NEGATIVE [facility] Comment on above: Performed By: #### U A #### [facility] [address] [place] [address] Dr. Karen Pierce LEUKOCYTES LARGE Abnormal NEGATIVE [facility] Comment on above: Performed By: #### U A #### [facility] [address] [place] [address] Dr. Karen Pierce Nitrite Ql (U) Positive Abnormal NEGATIVE [facility] Comment on above: Performed By: #### U A #### [facility] [address] [place] [address] Dr. Karen Pierce pH (U) 6.5 [pH] Normal 5-9 [facility] Comment on above: Performed By: #### U A #### [facility] [address] [place] [address] Dr. Karen Pierce SPEC GRAVITY 1.015 Normal 1.005-<=1. 025 [facility] Comment on above: Performed By: #### U A #### [facility] [address] [place] [address] Dr. Karen Pierce UA PROTEIN 30 mg/dl Abnormal NEGATIVE/ TRACE [facility] Comment on above: Performed By: #### U A #### [facility] [address] [place] [address] Dr. Karen Pierce Urobilinogen Qn (U) 0.2 {Tonio'U}/dL Normal 0.2 - 1. 0 [facility] Comment on above: Performed By: #### U A #### [facility] [address] [place] [address] Dr. Karen Pierce URINE T PROTEIN CREAT RATIOo n 09-04-2022 Protein (U) [Mass/Vol] 65.2 mg/dL Critically high <=12.0 [facility] Comment on above: Performed By: #### U RTPCR #### [facility] [address] [place] [address] Dr. Karen Pierce UR PROT CREAT RAT 0.76 Normal [facility] Comment on above: Performed By: #### U RTPCR #### [facility] [address] [place] [address] Dr. Karen Pierce URINE CREAT 85.95 mg/dL Normal 20.00-300. 00 [facility] Comment on above: Performed By: #### U RTPCR #### [facility] [address] [place] [address] Dr. Karen Pierce VIT B12 AND FOLATEon 023 Cobalamin (Vitamin B12) [Mass/Vol] 279.0 pg/mL Normal 193.0-986. 0 [facility] Comment on above: Performed By: #### U RTPCR #### [facility] [address] [place] [address] Dr. Karen Pierce FOLATE 17.80 ng/mL Normal 8.60-58.90 [facility] Comment on above: Performed By: #### U RTPCR #### [facility] [address] [place] [address] Dr. Karen Pierce VITAMIN D 25 OHon 09-04-2022 VIT D 25-OH 29.9 ng/mL Normal [facility] Comment on above: Performed By: #### U RTPCR #### [facility] [address] [place] [address] Dr. Karen Pierce VIT D RANGES SEE BELOW Normal [facility] Comment on above: Result Comment: <20 ng/mL Vit D deficient 20 - <30 ng/mL Vit D insufficient 30 - 100 ng/mL Vit D sufficient >100 ng/mL Potential Toxicity Performed By: #### U RTPCR #### [facility] [address] [place] [address] Dr. Karen Pierce CBC AUTO DIFFon 09-02-2022 BASO # 0.1 103/ul Normal 0.0-0.1 [facility] Comment on above: Performed By: #### C BC #### [facility] [address] [place] [address] Dr. Karen Pierce Basophils/100 WBC (Bld) 0.7 % Normal 0.2-2.0 [facility] Comment on above: Performed By: #### C BC #### [facility] [address] [place] [address] Dr. Karen Pierce EO # 0.2 103/ul Normal 0.0-0.7 [facility] Comment on above: Performed By: #### C BC #### [facility] [address] [place] [address] Dr. Karen Pierce Eosinophils/100 WBC (Bld) 2.6 % Normal 0.9-7.0 [facility] Comment on above: Performed By: #### C BC #### [facility] [address] [place] [address] Dr. Karen Pierce Erythrocyte distribution width (RBC) [Ratio] 13.8 % Normal 11.0-15.0 [facility] Comment on above: Performed By: #### C BC #### [facility] [address] [place] [address] Dr. Karen Pierce Hematocrit (Bld) [Volume fraction] 38.9 % Critically low 42.0-54.0 [facility] Comment on above: Performed By: #### C BC #### [facility] [address] [place] [address] Dr. Karen Pierce Hemoglobin (Bld) [Mass/Vol] 12.3 g/dL Critically low 14.0-18.0 [facility] Comment on above: Performed By: #### C BC #### [facility] [address] [place] [address] Dr. Karen Pierce IG # 0.01 10e3/ul Normal 0.00-0.03 [facility] Comment on above: Performed By: #### C BC #### [facility] [address] [place] [address] Dr. Karen Pierce IG % 0.1 % Normal 0.0-0.5 [facility] Comment on above: Performed By: #### C BC #### [facility] [address] [place] [address] Dr. Karen Pierce LYMPH # 1.9 103/ul Normal 1.2-3.8 [facility] Comment on above: Performed By: #### C BC #### [facility] [address] [place] [address] Dr. Karen Pierce Lymphocytes/100 WBC (Bld) 27.0 % Normal 20.5-60.0 [facility] Comment on above: Performed By: #### C BC #### [facility] [address] [place] [address] Dr. Karen Pierce MANUAL DIFF REQ NO Normal [facility] Comment on above: Performed By: #### C BC #### [facility] [address] [place] [address] Dr. Karen Pierce MCH (RBC) [Entitic mass] 27.8 pg Normal 25.9-34.0 [facility] Comment on above: Performed By: #### C BC #### [facility] [address] [place] [address] Dr. Karen Pierce MCHC (RBC) [Mass/Vol] 31.6 g/dL Normal 29.9-35.2 [facility] Comment on above: Performed By: #### C BC #### [facility] [address] [place] [address] Dr. Karen Pierce MCV (RBC) [Entitic vol] 87.8 fL Normal 80.0-94.0 [facility] Comment on above: Performed By: #### C BC #### [facility] [address] [place] [address] Dr. Karen Pierce MONO # 0.6 103/ul Normal 0.3-0.8 [facility] Comment on above: Performed By: #### C BC #### [facility] [address] [place] [address] Dr. Karen Pierce Monocytes/100 WBC (Bld) 8.8 % Normal 1.7-12.0 [facility] Comment on above: Performed By: #### C BC #### [facility] [address] [place] [address] Dr. Karen Pierce NEUT # 4.4 103/ul Normal 1.4-6.5 [facility] Comment on above: Performed By: #### C BC #### [facility] [address] [place] [address] Dr. Karen Pierce Neutrophils/100 WBC (Bld) 60.8 % Normal 43.0-75.0 [facility] Comment on above: Performed By: #### C BC #### [facility] [address] [place] [address] Dr. Karen Pierce Platelet mean volume (Bld) [Entitic vol] 9.9 fL Normal 9.5-13.5 [facility] Comment on above: Performed By: #### C BC #### [facility] [address] [place] [address] Dr. Karen Pierce PLT 181 103/ul Normal 150-450 [facility] Comment on above: Performed By: #### C BC #### [facility] [address] [place] [address] Dr. Karen Pierce RBC 4.43 106/ul Critically low 4.70-6.10 [facility] Comment on above: Performed By: #### C BC #### [facility] [address] [place] [address] Dr. Karen Pierce WBC 7.2 103/ul Normal 4.0-11.0 [facility] Comment on above: Performed By: #### C BC #### [facility] [address] [place] [address] Dr. Karen Pierce MAGNESIUMon 09-02-2022 Magnesium [Mass/Vol] 2.2 mg/dL Normal 1.8-2.4 [facility] Comment on above: Performed By: #### U A #### [facility] [address] [place] [address] Dr. Karen Pierce PHOSPHORUSon 09-02-2022 Phosphate [Mass/Vol] 2.9 mg/dL Normal 2.6-4.7 [facility] Comment on above: Performed By: #### U A #### [facility] [facility] [address] [place] [address] Dr. Karen Pierce PROF 14(COMP METB)on 023 Albumin [Mass/Vol] 3.5 g/dL Normal 3.4-5.0 [facility] Comment on above: Performed By: #### P THINT #### [facility] [address] [place] [address] Dr. Karen Pierce Albumin/Globulin [Mass ratio] 1.0 {ratio} Normal [facility] Comment on above: Performed By: #### P THINT #### [facility] [address] [address] [address] Karen Pierce ALP [Catalytic activity/Vol] 86 U/L Normal 46-116 [facility] Comment on above: Performed By: #### P THINT #### [facility] [address] [place] [address] Dr. Karen Pierce ALT [Catalytic activity/Vol] 17 U/L Normal 16-63 [facility] Comment on above: Performed By: #### P THINT #### [facility] [address] [place] [address] Dr. Karen Pierce Anion gap [Moles/Vol] 13.0 mmol/L Normal [facility] Comment on above: Performed By: #### P THINT #### [facility] [address] [place] [address] Dr. Karen Pierce AST [Catalytic activity/Vol] 14 U/L Critically low 15-37 [facility] Comment on above: Performed By: #### P THINT #### [facility] [address] [place] [address] Dr. Karen Pierce Bilirubin [Mass/Vol] 0.3 mg/dL Normal 0.2-1.0 [facility] Comment on above: Performed By: #### P THINT #### [facility] [address] [place] [address] Dr. Karen Pierce CO2 [Moles/Vol] 27.6 mmol/L Normal 21.0-32.0 [facility] Comment on above: Performed By: #### P THINT #### [facility] [address] [place] [address] Dr. Karen Pierce Creatinine [Mass/Vol] 1.48 mg/dL Critically high 0.70-1.30 [facility] Comment on above: Performed By: #### P THINT #### [facility] [address] [address] [address] Karen Pierce EGFR-AF GHANAIAN 56 mL/min/1.73m2 Critically low >=60 [facility] Comment on above: Performed By: #### P THINT #### [facility] [address] [address] [address] Karen Pierce EGFR-NON AF GHANAIAN 46 mL/min/1.73m2 Critically low >=60 [facility] Comment on above: Performed By: #### P THINT #### [facility] [address] [place] [address] Dr. Karen Pierce Globulin (S) [Mass/Vol] 3.6 g/dL Normal [facility] Comment on above: Performed By: #### P THINT #### [facility] [address] [address] [address] Karen Pierce Glucose [Mass/Vol] 105 mg/dL Normal 74-106 [facility] Comment on above: Performed By: #### P THINT #### [facility] [address] [place] [address] Dr. Karen Pierce Protein [Mass/Vol] 7.1 g/dL Normal 6.4-8.2 [facility] Comment on above: Performed By: #### P THINT #### [facility] [address] [place] [address] Dr. Karen Pierce Sodium [Moles/Vol] 142 mmol/L Normal 136-145 [facility] Comment on above: Performed By: #### P THINT #### [facility] [address] [place] [address] Dr. Karen Pierce Urea nitrogen/Creatinine [Mass ratio] 16.2 mg/mg Normal [facility] Comment on above: Performed By: #### P THINT #### [facility] [address] [place] [address] Dr. Karen Pierce PROF CHEM 8 (BAS METB)on Anion gap [Moles/Vol] 11.1 mmol/L Normal [facility] e [facility] Comment on above: Performed By: #### U A #### [facility] [address] [place] [address] Dr. Karen Pierce Calcium [Mass/Vol] 8.7 mg/dL Normal 8.5-10.1 [facility] Comment on above: Performed By: #### U A #### [facility] [address] [place] [address] Dr. Karen Pierce Performed By: #### P THINT #### [facility] [address] [place] [address] Dr. Karen Pierce Chloride [Moles/Vol] 106 mmol/L Normal 98-107 [facility] Comment on above: Performed By: #### U A #### [facility] [address] [place] [address] Dr. Karen Pierce Performed By: #### P THINT #### [facility] [address] [place] [address] Dr. Karen Pierce CO2 [Moles/Vol] 28.5 mmol/L Normal 21.0-32.0 [facility] Comment on above: Performed By: #### U A #### [facility] [address] [place] [address] Dr. Karen Pierce Creatinine [Mass/Vol] 1.44 mg/dL Critically high 0.70-1.30 [facility] Comment on above: Performed By: #### U A #### [facility] [address] [place] [address] Dr. Karen Pierce EGFR-AF GHANAIAN 58 mL/min/1.73m2 Critically low >=60 [facility] Comment on above: Performed By: #### U A #### [facility] [address] [place] [address] Dr. Karen Pierce EGFR-NON AF GHANAIAN 47 mL/min/1.73m2 Critically low >=60 [facility] Comment on above: Performed By: #### U A #### [facility] [address] [place] [address] Dr. Karen Pierce Glucose [Mass/Vol] 104 mg/dL Normal 74-106 [facility] Comment on above: Performed By: #### U A #### [facility] [address] [place] [address] Dr. Karen Pierce Potassium [Moles/Vol] 4.6 mmol/L Normal 3.5-5.1 [facility] Comment on above: Performed By: #### U A #### [facility] [address] [place] [address] Dr. Karen Pierce Performed By: #### P THINT #### [facility] [address] [place] [address] Dr. Karen Pierce Sodium [Moles/Vol] 141 mmol/L Normal 136-145 [facility] Comment on above: Performed By: #### U A #### [facility] [address] [place] [address] Dr. Karen Pierce Urea nitrogen [Mass/Vol] 24.0 mg/dL Critically high 7.0-18.0 [facility] Comment on above: Performed By: #### U A #### [facility] [address] [place] [address] Dr. Karen Pierce Performed By: #### P THINT #### [facility] [address] [place] [address] Dr. Karen Pierce Urea nitrogen/Creatinine [Mass ratio] 16.7 mg/mg Normal [facility] Comment on above: Performed By: #### U A #### [facility] [address] [place] [address] Dr. Karen Pierce PROTIMEon 09-02-2022 INR Coag (PPP) [Relative time] 1.01 {INR} Normal [facility] Comment on above: Performed By: #### P TT, PT #### [facility] [address] [place] [address] Dr. Karen Pierce INR GUIDELINES SEE BELOW Normal [facility] Comment on above: Result Comment: EMY RED INR: 2.0 - 3.0 CONDITIONS NOT LISTED BELOW 2.5 - 3.5 FOR PROSTHETIC HEART VALVE REPLACEMENT 2.5 - 3.5 RECURRENT THROMBOSIS Performed By: #### P TT, PT #### [facility] [address] [address] [address] Karen Pierce PT Coag (PPP) [Time] 10.7 s Normal 9.0-11.6 [facility] Comment on above: Performed By: #### P TT, PT #### [facility] [address] [address] [address] Karen Pierce PTTon 09-02-2022 aPTT Coag (Bld) [Time] 28.2 s Normal 22.3-36.2 [facility] Comment on above: Performed By: #### P TT, PT #### [facility] [address] [address] [address] Karen Pierce URIC ACID SERUMon 09-02-2022 Urate [Mass/Vol] 4.8 mg/dL Normal 3.5-7.2 [facility] Comment on above: Performed By: #### P THINT #### [facility] [address] [address] [address] Karen Pierce Creatinine (Bld) [Mass/Vol]O rdered By: Margarito Valentine on 08-16-2022 Creatinine [Mass/Vol] 1.5 mg/dL 0.6-1.3 [facility] Comment on above: ER/ESD physician is notified/shown all ISTAT results.Critical values may be confirmed by laboratory testing ifdeemed necessary by ER attending doctor. Creatinine (Bld) [Mass/Vol]O rdered By: Heather Omalley on 07-24-2022 Creatinine [Mass/Vol] 1.6 mg/dL 0.6-1.3 [facility] Comment on above: ER/ESD physician is notified/shown all ISTAT results.Critical values may be confirmed by laboratory testing ifdeemed necessary by ER attending doctor. No Panel InformationOrdered By: Heather Omalley on 07-24-2022 POC Estimated GFR [address] [place] [address] Comment on above: GFR estimated refere nce range: According to KDOQI guidelines, <60 ml/min/1.73m2 is sufficient to diagnose a patient with chronic kidney disease. POC Estimated GFR Non- Amer 42 [facility] Blood activated clotting lacho e by coagulation assayOrdered By: Margarito Valentine on 07-02-2022 ACT Coag (Bld) 215 s 90-139 [facility] Comment on above: Reference Range: 90- 139 (Non-heparinized) Basophils Auto (Bld) [#/Vol] Ordered By: Margarito Valentine on 06-21-2022 Basophils (Bld) [#/Vol] 0.1 10*3/uL 0.0-0.2 [facility] Basophils/100 WBC Auto (Bld) Ordered By: Margarito Valentine on 06-21-2022 Basophils/100 WBC (Bld) 0.9 % . [facility] Creatinine and Glomerular fi ltration rate.predicted panel (S/P/Bld)Ordered By: Margarito Valentine on 06-21-2022 Creatinine [Mass/Vol] 1.24 mg/dL 0.64-1.27 [facility] Eosinophils Auto (Bld) [#/Vo l]Ordered By: Margarito Valentine on 06-21-2022 Eosinophils (Bld) [#/Vol] 0.2 10*3/uL 0.0-0.45 [facility] Eosinophils/100 WBC Auto (Bl d)Ordered By: Margarito Valentine on 06-21-2022 Eosinophils/100 WBC (Bld) 2.5 % . [facility] Erythrocyte distribution wid th Auto (RBC) [Ratio]Ordered By: Margarito Valentine on 06-21-2022 Erythrocyte distribution width (RBC) [Ratio] 18.0 % 12.0-14.8 [facility] Estimated glomerular filtrat ion rate (GFR) non- AmericanOrdered By: Margarito Valentine on 06-21-2022 GFR/1.73 sq M.predicted among non-blacks MDRD (S/P/Bld) [Vol rate/Area] 56 mL/Min [facility] Hematocrit Auto (Bld) [Volum e fraction]Ordered By: Margarito Valentine on 06-21-2022 Hematocrit (Bld) [Volume fraction] 37.7 % 38.8-50.0 [facility] Hemoglobin [Mass/volume] in BloodOrdered By: Margarito Valentine on 06-21-2022 Hemoglobin (Bld) [Mass/Vol] 12.3 g/dL 13.0-17.0 [facility] Leukocytes [#/volume] correc phil for nucleated erythrocytes in Blood by Automated counOrdered By: Margarito Valentine on 06-21-2022 WBC corrected for nucl RBC Auto (Bld) [#/Vol] 7.1 10*3/uL 4.1-10.5 [facility] Lymphocytes Auto (Bld) [#/Vo l]Ordered By: Margarito Valentine on 06-21-2022 Lymphocytes (Bld) [#/Vol] 1.3 10*3/uL 1.00-4.8 [facility] Lymphocytes/100 WBC Auto (Bl d)Ordered By: Margarito Valentine on 06-21-2022 Lymphocytes/100 WBC (Bld) 18.7 % . [facility] MCH Auto (RBC) [Entitic mass ]Ordered By: Margarito Valentine on 06-21-2022 MCH (RBC) [Entitic mass] 28.2 pg 27.5-35.2 [facility] MCHC Auto (RBC) [Mass/Vol]Or dered By: Margarito Valentine on 06-21-2022 MCHC (RBC) [Mass/Vol] 32.6 g/dL 32.5-35.6 [facility] MCV Auto (RBC) [Entitic vol] Ordered By: Margarito Valentine on 06-21-2022 MCV (RBC) [Entitic vol] 86.5 fL 83.5-101 [facility] Monocytes Auto (Bld) [#/Vol] Ordered By: Margarito Valentine on 06-21-2022 Monocytes (Bld) [#/Vol] 0.7 10*3/uL 0.0-0.8 [facility] Monocytes/100 WBC Auto (Bld) Ordered By: Margarito Valentine on 06-21-2022 Monocytes/100 WBC (Bld) 10.3 % . [facility] Neutrophils Auto (Bld) [#/Vo l]Ordered By: Margarito Valentine on 06-21-2022 Neutrophils (Bld) [#/Vol] 4.8 10*3/uL 1.8-7.7 [facility] Neutrophils/100 WBC Auto (Bl d)Ordered By: Margarito Valentine on 06-21-2022 Neutrophils/100 WBC (Bld) 67.6 % . [facility] No Panel InformationOrdered By: Margarito Valentine on 06-21-2022 Estimated GFR () > 60 mL/Min [facility] Comment on above: GFR estimated refere nce range: According to KDOQI guidelines, <60 ml/min/1.73m2 is sufficient to diagnose a patient with chronic kidney disease. Pharmacy Creatinine Clearance (Chem N/A [facility] Nucleated erythrocytes [Pres ence] in Blood by Automated countOrdered By: Margarito Valentine on 06-21-2022 Nucleated RBC Auto Ql (Bld) 0.1 /100{WBC} 0-0.5 [facility] Platelet mean volume Auto (B ld) [Entitic vol]Ordered By: Margarito Valentine on 06-21-2022 Platelet mean volume (Bld) [Entitic vol] 8.2 fL 6.6-10.1 [facility] Platelets Auto (Bld) [#/Vol] Ordered By: Margarito Valentine on 06-21-2022 Platelets (Bld) [#/Vol] 149 10*3/uL 150-450 [facility] RBC Auto (Bld) [#/Vol]Ordere d By: Margarito Valentine on 06-21-2022 RBC (Bld) [#/Vol] 4.36 10*6/uL 3.90-5.60 [facility] Serum or plasma anion gap de terminationOrdered By: Margarito Valentine on 06-21-2022 Anion gap [Moles/Vol] 10.8 mmol/L 6.0-15.0 [facility] Serum or plasma calcium elan urement (mass/volume)Ordered By: Margarito Valentine on 06-21-2022 Calcium [Mass/Vol] 8.8 mg/dL 8.2-10.2 [facility] Serum or plasma chloride herb surement (moles/volume)Ordered By: Margarito Valentine on 06-21-2022 Chloride [Moles/Vol] 107 mmol/L 95-114 [facility] Serum or plasma glucose elan urement (mass/volume)Ordered By: Margarito Valentine on 06-21-2022 Glucose [Mass/Vol] 103 mg/dL 70-100 [facility] Comment on above: ADA recommended refe rence rangeRandom Glucose Reference Range is dependent on time and content of last meal. Glucose of more than 200 mg/dL in a nonstressed, ambulatory subject supports the diagnosis of Diabetes Mellitus. Serum or plasma potassium me asurement (moles/volume)Ordered By: Margarito Valentine on 06-21-2022 Potassium [Moles/Vol] 4.2 mmol/L 3.5-5.1 [facility] Serum or plasma sodium measu rement (moles/volume)Ordered By: Margarito Valentine on 06-21-2022 Sodium [Moles/Vol] 138 mmol/L 136-146 [facility] Serum or plasma total carbon dioxide measurement (moles/volume)Ordered By: Margarito Valentine on 06-21-2022 CO2 [Moles/Vol] 24.4 mmol/L 22.0-30.0 [facility] Serum or plasma urea nitroge n measurement (mass/volume)Ordered By: Margarito Valentine on 06-21-2022 Urea nitrogen [Mass/Vol] 18 mg/dL 02-15 [facility] WBC Auto (Bld) [#/Vol]Ordere d By: Margarito Valentine on 06-21-2022 WBC (Bld) [#/Vol] 7.1 10*3/uL 4.1-10.5 [facility] Office Visit (Cardiology)on 06-03-2022 Follow-up [...] Complaint ALEX ANDERSON is being seen for [facility] p[facility]/ekg. 76-year-old white male who I saw [...] Signs Recorded: 03Jun2022 03:38PM Heart Rate71, Apical Geylleew715, LUE, Sitting Dgfazucur01, LUE, Sitting Height6 ft 2 in Jdxaoy561 lb BMI Kqoagsbjxt04.45 kg/m2 BSA Calculated2.2 Tobacco Useb) No PHQ-2 [...] , regular (more content not included)... Normal [facility] Tobacco Screening.on 023 Adult depression screening assessment No [facility]-Sandu sushil 250 DO Work Phone: Fall risk assessment a) No falls within the last year [facility]-[employer] 250 DO Work Phone: Tobacco use status [facility]PH[facility] b) No M [facility] Heart-Picaticu sushil 250 DO Work Phone: Basophils Auto (Bld) [#/Vol] Ordered By: Bernabe Cr on 05-22-2022 Basophils (Bld) [#/Vol] 0.1 10*3/uL 0.0-0.2 [facility] Basophils/100 WBC Auto (Bld) Ordered By: Bernabe Cr on 05-22-2022 Basophils/100 WBC (Bld) 1.2 % . [facility] Creatinine and Glomerular fi ltration rate.predicted panel (S/P/Bld)Ordered By: Bernabe Cr on 05-22-2022 Creatinine [Mass/Vol] 1.78 mg/dL 0.64-1.27 [facility] Eosinophils Auto (Bld) [#/Vo l]Ordered By: Bernabe Cr on 05-22-2022 Eosinophils (Bld) [#/Vol] 0.3 10*3/uL 0.0-0.45 [facility] Eosinophils/100 WBC Auto (Bl d)Ordered By: Bernabe Cr on 05-22-2022 Eosinophils/100 WBC (Bld) 3.6 % . [facility] Erythrocyte distribution wid th Auto (RBC) [Ratio]Ordered By: Bernabe Cr on 05-22-2022 Erythrocyte distribution width (RBC) [Ratio] 15.3 % 12.0-14.8 [facility] Estimated glomerular filtrat ion rate (GFR) non- AmericanOrdered By: Bernabe Cr on 05-22-2022 GFR/1.73 sq M.predicted among non-blacks MDRD (S/P/Bld) [Vol rate/Area] 37 mL/Min [facility] Hematocrit Auto (Bld) [Volum e fraction]Ordered By: Bernabe Cr on 05-22-2022 Hematocrit (Bld) [Volume fraction] 36.2 % 38.8-50.0 [facility] Hemoglobin [Mass/volume] in BloodOrdered By: Bernabe Cr on 05-22-2022 Hemoglobin (Bld) [Mass/Vol] 11.7 g/dL 13.0-17.0 [facility] Leukocytes [#/volume] correc phil for nucleated erythrocytes in Blood by Automated counOrdered By: Bernabe Cr on 05-22-2022 WBC corrected for nucl RBC Auto (Bld) [#/Vol] 8.1 10*3/uL 4.1-10.5 [facility] Lymphocytes Auto (Bld) [#/Vo l]Ordered By: Bernabe Cr on 05-22-2022 Lymphocytes (Bld) [#/Vol] 1.4 10*3/uL 1.00-4.8 [facility] Lymphocytes/100 WBC Auto (Bl d)Ordered By: Bernabe Cr on 05-22-2022 Lymphocytes/100 WBC (Bld) 16.9 % . [facility] MCH Auto (RBC) [Entitic mass ]Ordered By: Bernabe Cr on 05-22-2022 MCH (RBC) [Entitic mass] 27.4 pg 27.5-35.2 [facility] MCHC Auto (RBC) [Mass/Vol]Or dered By: Bernabe Cr on 05-22-2022 MCHC (RBC) [Mass/Vol] 32.5 g/dL 32.5-35.6 [facility] MCV Auto (RBC) [Entitic vol] Ordered By: Bernabe Cr on 05-22-2022 MCV (RBC) [Entitic vol] 84.3 fL 83.5-101 [facility] Monocytes Auto (Bld) [#/Vol] Ordered By: Bernabe Cr on 05-22-2022 Monocytes (Bld) [#/Vol] 0.8 10*3/uL 0.0-0.8 [facility] Monocytes/100 WBC Auto (Bld) Ordered By: Bernabe Cr on 05-22-2022 Monocytes/100 WBC (Bld) 10.1 % . [facility] Neutrophils Auto (Bld) [#/Vo l]Ordered By: Bernabe Cr on 05-22-2022 Neutrophils (Bld) [#/Vol] 5.6 10*3/uL 1.8-7.7 [facility] Neutrophils/100 WBC Auto (Bl d)Ordered By: Bernabe Cr on 05-22-2022 Neutrophils/100 WBC (Bld) 68.2 % . [facility] No Panel InformationOrdered By: Bernabe Cr on 05-22-2022 Estimated GFR () 45 mL/Min [facility] Comment on above: GFR estimated refere nce range: According to KDOQI guidelines, <60 ml/min/1.73m2 is sufficient to diagnose a patient with chronic kidney disease. Pharmacy Creatinine Clearance (Chem 39.77 [facility] Nucleated erythrocytes [Pres ence] in Blood by Automated countOrdered By: Bernabe Cr on 05-22-2022 Nucleated RBC Auto Ql (Bld) 0.1 /100{WBC} 0-0.5 [facility] Platelet mean volume Auto (B ld) [Entitic vol]Ordered By: Bernabe Cr on 05-22-2022 Platelet mean volume (Bld) [Entitic vol] 8.7 fL 6.6-10.1 [facility] Platelets Auto (Bld) [#/Vol] Ordered By: Bernabe Cr on 05-22-2022 Platelets (Bld) [#/Vol] 198 10*3/uL 150-450 [facility] RBC Auto (Bld) [#/Vol]Ordere d By: Bernabe Cr on 05-22-2022 RBC (Bld) [#/Vol] 4.29 10*6/uL 3.90-5.60 [facility] Serum or plasma anion gap de terminationOrdered By: Bernabe Cr on 05-22-2022 Anion gap [Moles/Vol] 13.3 mmol/L 6.0-15.0 [facility] Serum or plasma calcium elan urement (mass/volume)Ordered By: Bernabe Cr on 05-22-2022 Calcium [Mass/Vol] 8.3 mg/dL 8.2-10.2 [facility] Serum or plasma chloride herb surement (moles/volume)Ordered By: Bernabe Cr on 05-22-2022 Chloride [Moles/Vol] 104 mmol/L 95-114 [facility] Serum or plasma glucose elan urement (mass/volume)Ordered By: Bernabe Cr on 05-22-2022 Glucose [Mass/Vol] 180 mg/dL 70-100 [facility] Comment on above: ADA recommended refe rence rangeRandom Glucose Reference Range is dependent on time and content of last meal. Glucose of more than 200 mg/dL in a nonstressed, ambulatory subject supports the diagnosis of Diabetes Mellitus. Serum or plasma potassium me asurement (moles/volume)Ordered By: Bernabe Cr on 05-22-2022 Potassium [Moles/Vol] 3.3 mmol/L 3.5-5.1 [facility] Serum or plasma sodium measu rement (moles/volume)Ordered By: Bernabe Cr on 05-22-2022 Sodium [Moles/Vol] 137 mmol/L 136-146 [facility] Serum or plasma total carbon dioxide measurement (moles/volume)Ordered By: Bernabe Cr on 05-22-2022 CO2 [Moles/Vol] 23.0 mmol/L 22.0-30.0 [facility] Serum or plasma urea nitroge n measurement (mass/volume)Ordered By: Bernabe Cr on 05-22-2022 Urea nitrogen [Mass/Vol] 21 mg/dL 9-23 [facility] WBC Auto (Bld) [#/Vol]Ordere d By: Bernabe Cr on 05-22-2022 WBC (Bld) [#/Vol] 8.1 10*3/uL 4.1-10.5 [facility] No Panel InformationOrdered By: Bernabe Cr on 05-21-2022 25-Hydroxy Vitamin D Total 15.9 ng/mL 30-100 [facility] Comment on above: VITAMIN D STATUS 25( [place])VITAMIN D RANGE (ng/mL) Deficient <20 Insufficient 20 to <30Sufficient 30 to 100Reference: Sixto MF,Federico NC, Palomo LESLIE, et al. Evaluation,treatment, and prevention of vitamin D deficiency; an Endocrine Society clinical practice guideline. JCEM. 2010; 96(7):1911-30. Vitamin C level 0.2 mg/dL 0.4-2.0 [facility] Comment on above: This test was develo ped and its performance characteristicsdetermined by [employer]. It has not been cleared orapproved by the Food and Drug Administration.Vitamin C deficiency is generally defined as plasma orserum concentrations less than 0.2 mg/dL and levels between0.2 and 0.4 mg/dL are considered low.Performed at: [employer] [id number] Director: Mamadou Rodriguez MD, Phone: [phone] Folate [Mass/volume] in Seru m or PlasmaOrdered By: Taz Barnes on 05-20-2022 Folate [Mass/Vol] 5.5 ng/mL >5.9 [facility] Comment on above: Folate reference ran ge: >5.9 ng/mlThe WHO technical consultation on folate and vitamin [id number] has determined that folate concentrations lessthan 4 ng/ml are considered deficient. Laboratory - Chemistry and C hemistry - challengeOrdered By: Taz Barnes on 05-20-2022 Cobalamin (Vitamin B12) [Mass/Vol] 169 pg/mL 180-914 [facility] No Panel InformationOrdered By: Taz Barnes on 05-20-2022 Ova and Parasite Result 1 [facility] Ova and Parasite Result 1 [facility] Ova or parasites identificat ionOrdered By: Taz Barnes on 05-20-2022 Ova and parasites identified LM Nom (Unsp spec) [facility] Ova and parasites identified LM Nom (Unsp spec) [facility] Laboratory - Chemistry and C hemistry - challengeOrdered By: Janice Gonzalez on 05-19-2022 Magnesium [Mass/Vol] 1.7 mg/dL 1.6-2.6 [facility] Automated erythrocytes count in urine sediment (number/area)Ordered By: Taz Barnes on 05-18-2022 RBC Auto (Urine sed) [#/Area] 50-100 [HPF] 0-4 [facility] Automated leukocytes count i n urine sediment (number/area)Ordered By: Taz Barnes on 05-18-2022 WBC Auto (Urine sed) [#/Area] Innumerable [HPF] 0-4 [facility] Automated urine hyaline cast s count (number/volume)Ordered By: Taz Barnes on 05-18-2022 Hyaline casts Auto (U) [#/Vol] None seen [LPF] 0-1 [facility] Bilirubin Test strip Ql (U)O rdered By: Taz Barnes on 05-18-2022 Bilirubin Ql (U) Negative Negative [facility] Casts typing in urine sedime nt by light microscopyOrdered By: Taz Barnes on 05-18-2022 Casts LM Nom (Urine sed) None seen [LPF] None Seen [facility] Color Auto (U)Ordered By: Starr Barnes on 05-18-2022 Color (U) Yellow Yellow [facility] Ketones Auto test strip (U) [Mass/Vol]Ordered By: Taz Barnes on 05-18-2022 Ketones (U) [Mass/Vol] Negative Negative [facility] Nitrite Test strip Ql (U)Ord ered By: Taz Barnes on 05-18-2022 Nitrite Ql (U) Negative Negative [facility] Protein Auto test strip (U) [Mass/Vol]Ordered By: Taz Barnes on 05-18-2022 Protein (U) [Mass/Vol] 100 mg/dL Negative [facility] Specific gravity Auto test s trip (U) [Rel density]Ordered By: Taz Barnes on 05-18-2022 Specific gravity (U) [Rel density] 1.010 1.001-1.03 0 [facility] Squamous epithelial cells de tection in urine sediment by light microscopyOrdered By: Taz Barnes on 05-18-2022 Epithelial cells.squamous LM Ql (Urine sed) 1-2 [HPF] 0-2 [facility] Urine bacteria detection by automated methodOrdered By: Taz Barnes on 05-18-2022 Bacteria Auto Ql (U) None seen None Seen [facility] Urine clarity by refractomet ry automatedOrdered By: Taz Barnes on 05-18-2022 Clarity Refractometry automated (U) Turbid Clear [facility] Urine culture routineOrdered By: Taz Barnes on 05-18-2022 Bacteria identified Cx Nom (U) No Growth 2 Days [facility] Bacteria identified Cx Nom (U) No Growth 2 Days [facility] Urine glucose measurement by automated test strip (mass/volume)Ordered By: Taz Barnes on 05-18-2022 Glucose Auto test strip (U) [Mass/Vol] Normal mg/dL Normal [facility] Urine hemoglobin detection b y automated test stripOrdered By: Taz Barnes on 05-18-2022 Hemoglobin Auto test strip Ql (U) 2+ Negative [facility] Urine leukocyte esterase det ection by automated test stripOrdered By: Taz Barnes on 05-18-2022 Leukocyte esterase Auto test strip Ql (U) 4+ Negative [facility] Urobilinogen Auto test strip (U) [Mass/Vol]Ordered By: Taz Barnes on 05-18-2022 Urobilinogen (U) [Mass/Vol] Normal mg/dL Normal [facility] Yeast detection in urine sed iment by light microscopyOrdered By: Taz Barnes on 05-18-2022 Yeast LM Ql (Urine sed) None seen [HPF] None Se en [facility] pH Auto test strip (U)Ordere d By: Taz Barnes on 05-18-2022 pH (U) 7.5 [pH] 5.0-9.0 [facility] Activated partial thrombopla stin time (aPTT) in platelet poor plasma by coagulation aOrdered By: Taz Barnes on 05-16-2022 aPTT Coag (PPP) [Time] 29.5 s 25.1-36.5 [facility] Body fluid albumin measureme nt (mass/volume)Ordered By: Taz Barnes on 05-16-2022 Albumin (Body fld) [Mass/Vol] 2.9 g/dL 3.2-5.5 [facility] CBC AUTO DIFFon 05-16-2022 BASO # 0.0 103/ul Normal 0.0-0.1 [facility] Comment on above: Performed By: #### C BC #### [facility] Laboratory [address] [address] [address] Karen Pierce Basophils/100 WBC (Bld) 0.3 % Normal 0.2-2.0 [facility] Comment on above: Performed By: #### C BC #### [facility] [address] [place] [address] Dr. Karen Pierce EO # 0.1 103/ul Normal 0.0-0.7 [facility] Comment on above: Performed By: #### C BC #### [facility] [address] [address] [address] Karen Pierce Eosinophils/100 WBC (Bld) 0.7 % Critically low 0.9-7.0 [facility] Comment on above: Performed By: #### C BC #### [facility] [address] [address] [address] Karen Pierce Erythrocyte distribution width (RBC) [Ratio] 14.8 % Normal 11.0-15.0 [facility] Comment on above: Performed By: #### C BC #### [facility] [address] [place] [address] Dr. Karen Pierce Hematocrit (Bld) [Volume fraction] 39.4 % Critically low 42.0-54.0 [facility] Comment on above: Performed By: #### C BC #### [facility] [address] [place] [address] Dr. Karen Pierce Hemoglobin (Bld) [Mass/Vol] 12.6 g/dL Critically low 14.0-18.0 [facility] Comment on above: Performed By: #### C BC #### [facility] [address] [place] [address] Dr. Karen Pierce IG # 0.04 10e3/ul Critically high 0.00-0.03 [facility] Comment on above: Performed By: #### C BC #### [facility] [address] [place] [address] Dr. Karen Pierce IG % 0.4 % Normal 0.0-0.5 [facility] Comment on above: Performed By: #### C BC #### [facility] [address] [place] [address] Dr. Karen Pierce LYMPH # 1.2 103/ul Normal 1.2-3.8 [facility] Comment on above: Performed By: #### C BC #### [facility] [address] [place] [address] Dr. Karen Pierce Lymphocytes/100 WBC (Bld) 11.8 % Critically low 20.5-60.0 [facility] Comment on above: Performed By: #### C BC #### [facility] [address] [place] [address] Dr. Karen Pierce MANUAL DIFF REQ NO Normal [facility] Comment on above: Performed By: #### C BC #### [facility] [address] [place] [address] Dr. Karen Pierce MCH (RBC) [Entitic mass] 27.5 pg Normal 25.9-34.0 [facility] Comment on above: Performed By: #### C BC #### [facility] [address] [place] [address] Dr. Karen Pierce MCHC (RBC) [Mass/Vol] 32.0 g/dL Normal 29.9-35.2 [facility] Comment on above: Performed By: #### C BC #### [facility] [address] [place] [address] Dr. Karen Pierce MCV (RBC) [Entitic vol] 86.0 fL Normal 80.0-94.0 [facility] Comment on above: Performed By: #### C BC #### [facility] [address] [place] [address] Dr. Karen Pierce MONO # 1.4 103/ul Critically high 0.3-0.8 [facility] Comment on above: Performed By: #### C BC #### [facility] [address] [place], [place] [id number] Dr. Karen Pierce Monocytes/100 WBC (Bld) 13.8 % Critically high 1.7-12. 0 [facility] Comment on above: Performed By: #### C BC #### [facility] [address] [place] [address] Dr. Karen Pierce NEUT # 7.6 103/ul Critically high 1.4-6.5 [facility] Comment on above: Performed By: #### C BC #### [facility] [address] [place] [address] Dr. Karen Pierce Neutrophils/100 WBC (Bld) 73.0 % Normal 43.0-75.0 [facility] Comment on above: Performed By: #### C BC #### [facility] [address] [place] [address] Dr. Karen Pierce Platelet mean volume (Bld) [Entitic vol] 10.6 fL Normal 9.5-13.5 [facility] Comment on above: Performed By: #### C BC #### [facility] [address] [place], [place] [id number] Dr. Karen Pierce PLT 193 103/ul Normal 150-450 [facility] Comment on above: Performed By: #### C BC #### [facility] [address] [place] [address] Dr. Karen Pierce RBC 4.58 106/ul Critically low 4.70-6.10 [facility] Comment on above: Performed By: #### C BC #### [facility] [address] [place] [address] Dr. Karen Pierce WBC 10.4 103/ul Normal 4.0-11.0 [facility] Comment on above: Performed By: #### C BC #### [facility] [address] [place] [address] ABD/PELVIS WO CONon [...] Date: 2022-05-16 09:21 Normal [facility] CULTURE URINEon 05-16-2022 CULTURE URINE Culture Observations : MODERATE GROWTH OF MIXED SKIN JAS. NO POTENTIAL PATHOGENS SEEN. Normal [facility] Comment on above: Performed By: #### U RTPCR #### [facility] [address] [place], [place] [address] Dr. Karen Pierce Covid-19 PCR ([facility])on 04-26 SARS-CoV-2 (COVID-19) RNA KARI+probe Ql (Unsp spec) Not detected Normal NOT DETECTED [facility] Comment on above: Result Comment: [...] for this test is supported by the Recruiting Operations Consultant of Health and Human Service's declaration that [...] By: #### U A #### [facility] [address] [place], [place] [address] Dr. Karen Pierce Creatinine [Mass/volume] in UrineOrdered By: Taz Barnes on 05-16-2022 Creatinine (U) [Mass/Vol] 68.1 mg/dL [facility] Comment on above: No reference range e stablished ER URINE PROFILEon 2 Bilirubin Ql (U) Negative Normal NEGATIVE [facility] Comment on above: Performed By: #### U RTPCR #### [facility] [address] [place] [address] Dr. Karen Pierce Clarity (U) CLEAR Normal CLEAR [facility] Comment on above: Performed By: #### U RTPCR #### [facility] [address] [place] [address] Dr. Karen Pierce Color (U) YELLOW Normal YELLOW [facility] Comment on above: Performed By: #### U RTPCR #### [facility] [address] [place] [address] Dr. Karen Pierce ERUAHD A micrscopic examina tion will be performed if indicated. Normal [facility] Comment on above: Performed By: #### U RTPCR #### [facility] [address] [place] [address] Dr. Karen Pierce Glucose Ql (U) Negative Normal NEGATIVE [facility] Comment on above: Performed By: #### U RTPCR #### [facility] [address] [place] [address] Dr. Karen Pierce Hemoglobin Ql (U) MODERATE Abnormal NEGATIVE [facility] Comment on above: Performed By: #### U RTPCR #### [facility] [address] [place] [address] Dr. Karen Pierce Ketones Ql (U) Negative Normal NEGATIVE [facility] Comment on above: Performed By: #### U RTPCR #### [facility] [address] [place] [address] Dr. Karen Pierce LEUKOCYTES LARGE Abnormal NEGATIVE [facility] Comment on above: Performed By: #### U RTPCR #### [facility] [address] [place] [address] Dr. Karen Pierce Nitrite Ql (U) Negative Normal NEGATIVE [facility] Comment on above: Performed By: #### U RTPCR #### [facility] [address] [place] [address] Dr. Karen Pierce pH (U) 5.5 [pH] Normal 5-9 [facility] Comment on above: Performed By: #### U RTPCR #### [facility] [address] [address] [address] Karen Pierce SPEC GRAVITY <=1.005 Abnormal 1.005-<=1. 025 [facility] Comment on above: Performed By: #### U RTPCR #### [facility] [address] [place] [address] Dr. Karen Pierce UA PROTEIN Negative Normal NEGATIVE/ TRACE [facility] Comment on above: Performed By: #### U RTPCR #### [facility] [address] [place] [address] Dr. Karen Pierce UR MICRO IND INDICATED Normal [facility] Comment on above: Performed By: #### U RTPCR #### [facility] [address] [place] [address] Dr. Karen Pierce Urobilinogen Qn (U) 0.2 {Tonio'U}/dL Normal 0.2 - 1. 0 [facility] Comment on above: Performed By: #### U RTPCR #### [facility] [address] [place] [address] Dr. Karen Pierce Globulin Calc (S) [Mass/Vol] Ordered By: Taz Barnes on 05-16-2022 Globulin (S) [Mass/Vol] 3.5 g/dL [facility] Laboratory - CoagulationOrde red By: Taz Barnes on 05-16-2022 PT Coag (PPP) [Time] 14.2 s 9.0-12.9 [facility] PROF 14(COMP METB)on 022 Albumin [Mass/Vol] 3.1 g/dL Critically low 3.4-5.0 [facility] e [facility] Comment on above: Performed By: #### U RTPCR #### [facility] [address] [place] [address] Dr. Karen Pierce Albumin/Globulin [Mass ratio] 0.7 {ratio} Normal [facility] Comment on above: Performed By: #### U RTPCR #### [facility] [address] [place] [address] Dr. Karen Pierce ALP [Catalytic activity/Vol] 96 U/L Normal 46-116 [facility] Comment on above: Performed By: #### U RTPCR #### [facility] [address] [address] [address] Karen Pierce ALT [Catalytic activity/Vol] 46 U/L Normal 16-63 [facility] Comment on above: Performed By: #### U RTPCR #### [facility] [address] [address] [address] Karen Pierce Anion gap [Moles/Vol] 19.7 mmol/L Normal Th e [facility] Comment on above: Performed By: #### U RTPCR #### [facility] [address] [address] [address] Karen Pierce AST [Catalytic activity/Vol] 21 U/L Normal 15-37 [facility] Comment on above: Performed By: #### U RTPCR #### [facility] [address] [address] [address] Karen Pierce Bilirubin [Mass/Vol] 0.3 mg/dL Normal 0.2-1.0 [facility] Comment on above: Performed By: #### U RTPCR #### [facility] [address] [address] [address] Karen Pierce Calcium [Mass/Vol] 8.9 mg/dL Normal 8.5-10.1 [facility] Comment on above: Performed By: #### U RTPCR #### [facility] [address] [address] [address] Karen Pierce Chloride [Moles/Vol] 101 mmol/L Normal 98-107 [facility] Comment on above: Performed By: #### U RTPCR #### [facility] [address] [address] [address] Karen Pierce CO2 [Moles/Vol] 18.3 mmol/L Critically low 21.0-32.0 [facility] Comment on above: Performed By: #### U RTPCR #### [facility] [address] [address] [address] Karen Pierce Creatinine [Mass/Vol] 8.99 mg/dL Critically high 0.70-1.30 [facility] Comment on above: Performed By: #### U RTPCR #### [facility] [address] [address] [address] Karen Pierce EGFR-AF GHANAIAN 7 mL/min/1.73m2 Critically low >=60 [facility] Comment on above: Performed By: #### U RTPCR #### [facility] [address] [address] [address] Karen Pierce EGFR-NON AF GHANAIAN 6 mL/min/1.73m2 Critically low >=60 [facility] Comment on above: Performed By: #### U RTPCR #### [facility] [address] [address] [address] Karen Pierce Globulin (S) [Mass/Vol] 4.7 g/dL Normal [facility] Comment on above: Performed By: #### U RTPCR #### [facility] [address] [address] [address] Karen Pierce Glucose [Mass/Vol] 110 mg/dL Critically high 74-106 [facility] Comment on above: Performed By: #### U RTPCR #### [facility] [address] [address] [address] Karen Pierce Potassium [Moles/Vol] 5.0 mmol/L Normal 3.5-5.1 [facility] Comment on above: Performed By: #### U RTPCR #### [facility] [address] [address] [address] Karen Pierce Protein [Mass/Vol] 7.8 g/dL Normal 6.4-8.2 [facility] Comment on above: Performed By: #### U RTPCR #### [facility] [address] [address] [address] Karen Pierce Sodium [Moles/Vol] 134 mmol/L Critically low 136-145 [facility] Comment on above: Performed By: #### U RTPCR #### [facility] [address] [address] [address] Karen Pierce Urea nitrogen [Mass/Vol] 129.0 mg/dL Critically high 7.0-18.0 [facility] Comment on above: Performed By: #### U RTPCR #### [facility] [address] [place], [place] [address] Dr. Karen Pierce Urea nitrogen/Creatinine [Mass ratio] 14.3 mg/mg Normal [facility] Comment on above: Performed By: #### U RTPCR #### [facility] [address] [place], [place] [address] Dr. Karen Pierce Platelet poor plasma interna tional normalized ratio (INR) by coagulation assay (relatOrdered By: Taz Barnes on 05-16-2022 INR Coag (PPP) [Relative time] 1.3 {INR} [facility] Comment on above: INR Therapeutic Rang e [...] on 05-16-2022 Protein [Mass/Vol] 6.4 g/dL 6.1-7.9 [facility] Serum or plasma alanine bal otransferase measurement without P-5'-P (enzymatic activiOrdered By: Taz Barnes on 05-16-2022 ALT No additional P-5'-P [Catalytic activity/Vol] 38 U/L 10-60 [facility] Serum or plasma albumin/glob ulin mass ratioOrdered By: Taz Barnes on 05-16-2022 Albumin/Globulin [Mass ratio] 0.8 {ratio} [facility] Serum or plasma alkaline deonte sphatase measurement (enzymatic activity/volume)Ordered By: Taz Barnes on 05-16-2022 ALP [Catalytic activity/Vol] 78 U/L 32-92 [facility] Serum or plasma aspartate am inotransferase measurement (enzymatic activity/volume)Ordered By: Taz Barnes on 05-16-2022 AST [Catalytic activity/Vol] 19 U/L 10-42 [facility] Serum or plasma total biliru bin measurement (mass/volume)Ordered By: Taz Barnes on 05-16-2022 Bilirubin [Mass/Vol] 0.4 mg/dL 0.3-1.2 [facility] URINE MICROSCOPIC ONLYon BACTERIA SMALL Abnormal NONE SEEN [facility] Comment on above: Performed By: #### U RTPCR #### [facility] [address] [place] [address] Dr. Karen Pierce Bacteria identified Cx Nom (U) INDICATED Normal [facility] Comment on above: Performed By: #### U RTPCR #### [facility] [address] [place] [address] Dr. Karen Pierce CAST NONE SEEN Normal NONE SEEN [facility] Comment on above: Performed By: #### U RTPCR #### [facility] [address] [place] [address] Dr. Karen Pierce Crystals LM Nom (Urine sed) NONE SEEN Normal NONE SEEN [facility] Comment on above: Performed By: #### U RTPCR #### [facility] [address] [place] [address] Dr. Karen Pierce Epithelial cells LM Ql (Urine sed) NONE SEEN Normal NONE SEEN /RARE [facility] Comment on above: Performed By: #### U RTPCR #### [facility] [address] [place] [address] Dr. Karen Pierce MUCOUS NONE SEEN Normal NONE SEEN [facility] Comment on above: Performed By: #### U RTPCR #### [facility] [address] [place] [address] Dr. Karen Pierce RBC 20-50 Abnormal 0-2 [facility] Comment on above: Performed By: #### U RTPCR #### [facility] [address] [place] [address] Dr. Karen Pierce WBC (U) [#/Vol] /uL Abnormal NONE SEEN [facility] Comment on above: Performed By: #### U RTPCR #### [facility] [address] [place] [address] Dr. Karen Pierce Urine sodium measurement (mo les/volume)Ordered By: Taz Barnes on 05-16-2022 Sodium (U) [Moles/Vol] 42.0 mmol/L [facility] Comment on above: [...] Date: 2022-05-16 09:25 Normal [facility] CBC AUTO DIFFon 05-15-2022 BASO # 0.0 103/ul Normal 0.0-0.1 [facility] Comment on above: Performed By: #### U A #### [facility] [address] [address] [address] Karen Pierce Basophils/100 WBC (Bld) 0.3 % Normal 0.2-2.0 [facility] Comment on above: Performed By: #### U A #### [facility] [address] [address] [address] Karen Pierce EO # 0.1 103/ul Normal 0.0-0.7 [facility] Comment on above: Performed By: #### U A #### [facility] [address] [address] [address] Karen Pierce Eosinophils/100 WBC (Bld) 0.7 % Critically low 0.9-7.0 [facility] Comment on above: Performed By: #### U A #### [facility] [address] [address] Dr. Karen Pierce Erythrocyte distribution width (RBC) [Ratio] 14.9 % Normal 11.0-15.0 [facility] Comment on above: Performed By: #### U A #### [facility] [address] [place] [address] Dr. Karen Pierec Hematocrit (Bld) [Volume fraction] 39.8 % Critically low 42.0-54.0 [facility] Comment on above: Performed By: #### U A #### [facility] [address] [place] [address] Dr. Karen Pierce Hemoglobin (Bld) [Mass/Vol] 12.7 g/dL Critically low 14.0-18.0 [facility] Comment on above: Performed By: #### U A #### [facility] [address] [place] [address] Dr. Karen Pierce IG # 0.06 10e3/ul Critically high 0.00-0.03 [facility] Comment on above: Performed By: #### U A #### [facility] [address] [place] [address] Dr. Karen Pierce IG % 0.5 % Normal 0.0-0.5 [facility] Comment on above: Performed By: #### U A #### [facility] [address] [place] [address] Dr. Karen Pierce LYMPH # 0.9 103/ul Critically low 1.2-3.8 [facility] Comment on above: Performed By: #### U A #### [facility] [address] [place] [address] Dr. Karen Pierce Lymphocytes/100 WBC (Bld) 7.1 % Critically low 20.5-60.0 [facility] Comment on above: Performed By: #### U A #### [facility] [address] [place] [address] Dr. Karen Pierce MANUAL DIFF REQ NO Normal [facility] Comment on above: Performed By: #### U A #### [facility] [address] [place] [address] Dr. Karen Pierce MCH (RBC) [Entitic mass] 27.7 pg Normal 25.9-34.0 [facility] Comment on above: Performed By: #### U A #### [facility] [address] [address] [address] Karen Pierce MCHC (RBC) [Mass/Vol] 31.9 g/dL Normal 29.9-35.2 [facility] Comment on above: Performed By: #### U A #### [facility] [address] [address] [address] Karen Pierce MCV (RBC) [Entitic vol] 86.7 fL Normal 80.0-94.0 [facility] Comment on above: Performed By: #### U A #### [facility] [address] [place] [address] Dr. Karen Pierce MONO # 1.0 103/ul Critically high 0.3-0.8 [facility] Comment on above: Performed By: #### U A #### [facility] [address] [place] [address] Dr. Karen Pierce Monocytes/100 WBC (Bld) 8.5 % Normal 1.7-12.0 [facility] Comment on above: Performed By: #### U A #### [facility] [address] [place] [address] Dr. Karen Pierce NEUT # 9.9 103/ul Critically high 1.4-6.5 [facility] Comment on above: Performed By: #### U A #### [facility] [address] [place] [address] Dr. Karen Pierce Neutrophils/100 WBC (Bld) 82.9 % Critically high 43.0-75.0 [facility] Comment on above: Performed By: #### U A #### [facility] [address] [place] [address] Dr. Karen Pierce Platelet mean volume (Bld) [Entitic vol] 9.7 fL Normal 9.5-13.5 [facility] Comment on above: Performed By: #### U A #### [facility] [address] [place] [address] Dr. Karen Pierce PLT 206 103/ul Normal 150-450 [facility] Comment on above: Performed By: #### U A #### [facility] [address] [place] [address] Dr. Karen Pierce RBC 4.59 106/ul Critically low 4.70-6.10 [facility] Comment on above: Performed By: #### U A #### [facility] [address] [place] [address] Dr. Karen Pierce WBC 11.9 103/ul Critically high 4.0-11.0 [facility] Comment on above: Performed By: #### U A #### [facility] [address] [place] [address] Dr. Karen Pierce LIPASEon 05-15-2022 Lipase [Catalytic activity/Vol] 340.0 U/L Normal 73.0-393.0 [facility] Comment on above: Performed By: #### U A #### [facility] [address] [place] [address] Dr. Karen Pierce PROF 14(COMP METB)on 022 Albumin [Mass/Vol] 3.1 g/dL Critically low 3.4-5.0 [facility] Comment on above: Performed By: #### U A #### [facility] [address] [place] [address] Dr. Karen Pierce Albumin/Globulin [Mass ratio] 0.7 {ratio} Normal [facility] Comment on above: Performed By: #### U A #### [facility] [address] [place] [address] Dr. Karen Pierce ALP [Catalytic activity/Vol] 105 U/L Normal 46-116 [facility] Comment on above: Performed By: #### U A #### [facility] [address] [place] [address] Dr. Karen Pierce ALT [Catalytic activity/Vol] 49 U/L Normal 16-63 [facility] Comment on above: Performed By: #### U A #### [facility] [address] [place] [address] Dr. Karen Pierce Anion gap [Moles/Vol] 18.4 mmol/L Normal [facility] Comment on above: Performed By: #### U A #### [facility] [address] [address] [address] Karen Pierce AST [Catalytic activity/Vol] 20 U/L Normal 15-37 [facility] Comment on above: Performed By: #### U A #### [facility] [address] [address] [address] Karen Pierce Bilirubin [Mass/Vol] 0.3 mg/dL Normal 0.2-1.0 [facility] Comment on above: Performed By: #### U A #### [facility] [address] [address] [address] Karen Pierce Calcium [Mass/Vol] 9.1 mg/dL Normal 8.5-10.1 [facility] Comment on above: Performed By: #### U A #### [facility] [address] [address] [address] Karen Pierce Chloride [Moles/Vol] 103 mmol/L Normal 98-107 [facility] Comment on above: Performed By: #### U A #### [facility] [address] [address] [address] Karen Pierce CO2 [Moles/Vol] 20.1 mmol/L Critically low 21.0-32.0 [facility] Comment on above: Performed By: #### U A #### [facility] [address] [address] [address] Karen Pierce Creatinine [Mass/Vol] 9.58 mg/dL Critically high 0.70-1.30 [facility] Comment on above: Performed By: #### U A #### [facility] [address] [address] [address] Karen Pierce EGFR-AF GHANAIAN 6 mL/min/1.73m2 Critically low >=60 [facility] Comment on above: Performed By: #### U A #### [facility] [address] [address] [address] Karen Pierce EGFR-NON AF GHANAIAN 5 mL/min/1.73m2 Critically low >=60 [facility] Comment on above: Performed By: #### U A #### [facility] [address] [address] [address] Karen Pierce Globulin (S) [Mass/Vol] 4.6 g/dL Normal [facility] Comment on above: Performed By: #### U A #### [facility] [address] [address] [address] Karen Pierce Glucose [Mass/Vol] 114 mg/dL Critically high 74-106 [facility] Comment on above: Performed By: #### U A #### [facility] [address] [place] [address] Dr. Karen Pierce Potassium [Moles/Vol] 5.5 mmol/L Critically high 3.5-5.1 [facility] Comment on above: Performed By: #### U A #### [facility] [address] [place] [address] Dr. Karen Pierce Protein [Mass/Vol] 7.7 g/dL Normal 6.4-8.2 [facility] Comment on above: Performed By: #### U A #### [facility] [address] [place] [address] Dr. Karen Pierce Sodium [Moles/Vol] 136 mmol/L Normal 136-145 [facility] Comment on above: Performed By: #### U A #### [facility] [address] [place] [address] Dr. Karen Pierce Urea nitrogen [Mass/Vol] 134.0 mg/dL Critically high 7.0-18.0 [facility] Comment on above: Performed By: #### U A #### [facility] [address] [place] [address] Dr. Karen Pierce Urea nitrogen/Creatinine [Mass ratio] 14.0 mg/mg Normal [facility] Comment on above: Performed By: #### U A #### [facility] [address] [place] [address] Dr. Karen Pierce PROF CHEM 8 (BAS METB)on Anion gap [Moles/Vol] 12.6 mmol/L Normal [facility] Comment on above: Performed By: #### B MP #### [facility] [address] [address] [address] Karen Pierce Calcium [Mass/Vol] 8.7 mg/dL Normal 8.5-10.1 [facility] Comment on above: Performed By: #### B MP #### [facility] [address] [address] [address] Karen Pierce Chloride [Moles/Vol] 103 mmol/L Normal 98-107 [facility] Comment on above: Performed By: #### B MP #### [facility] [address] [address] [address] Karen Pierce CO2 [Moles/Vol] 27.3 mmol/L Normal 21.0-32.0 [facility] Comment on above: Performed By: #### B MP #### [facility] [address] [address] [address] Karen Pierce Creatinine [Mass/Vol] 1.26 mg/dL Normal 0.70-1.30 [facility] Comment on above: Performed By: #### B MP #### [facility] [address] [address] [address] Karen Pierce EGFR-AF GHANAIAN >60 Normal >=60 [facility] Comment on above: Performed By: #### B MP #### [facility] [address] [place] [address] Dr. Karen Pierce EGFR-NON AF GHANAIAN 55 mL/min/1.73m2 Critically low >=60 [facility] Comment on above: Performed By: #### B MP #### [facility] [address] [address] [address] Karen Pierce Glucose [Mass/Vol] 111 mg/dL Critically high 74-106 [facility] Comment on above: Performed By: #### B MP #### [facility] [address] [address] [address] Karen Pierce Potassium [Moles/Vol] 3.9 mmol/L Normal 3.5-5.1 [facility] Comment on above: Performed By: #### B MP #### [facility] [address] [address] [address] Karen Pierce Sodium [Moles/Vol] 139 mmol/L Normal 136-145 [facility] Comment on above: Performed By: #### B ROBYN #### [facility] [address] [address] [address] Karen Pierce Urea nitrogen [Mass/Vol] 21.0 mg/dL Critically high 7.0-18.0 [facility] Comment on above: Performed By: #### B ROBYN #### [facility] [address] [address] [address] Karen Pierce Urea nitrogen/Creatinine [Mass ratio] 16.7 mg/mg Normal [facility] Comment on above: Performed By: #### B ROBYN #### [facility] [address] [address] [address] Karen Pierce [facility] Metabolic Pane [facility] 05-11-2021 Albumin [Mass/Vol] 4.5 g/dL Normal 3.6-5.1 [facility] Comment on above: Performed By: #### C ROBYN LIPElvie #### [facility] [address], [place] [id number] Albumin/Globulin [Mass ratio] 2.0 {ratio} Normal 1.0-2.5 [facility] Comment on above: Performed By: #### C ROBYN LIPElvie #### [facility] [address], [place] [id number] ALP [Catalytic activity/Vol] 97 U/L Normal 40-129 [facility] Comment on above: Performed By: #### C ROBYN LIPD #### [facility] [address], [place] [id number] ALT [Catalytic activity/Vol] 18 U/L Normal 9-46 [facility] Comment on above: Result Comment: 04/25 Female reference range changed. Performed By: #### C ROBYN LIPElvie #### [facility] [address], [place] [id number] Anion gap [Moles/Vol] 17 mmol/L Normal 12-20 [facility] [place] [facility] Comment on above: Result Comment: Effe ctive 05/31/2019 reference range changed. Performed By: #### C MP, LIPD #### [facility] [address], [place] [id number] AST [Catalytic activity/Vol] 15 U/L Normal 10-40 [facility] Comment on above: Performed By: #### C ROBYN LIPD #### [facility] [address], [place] [id number] Bilirubin [Mass/Vol] 0.55 mg/dL Normal 0.30-1.20 [facility] Comment on above: Performed By: #### C ROBYN LIPD #### [facility] [address], [place] [id number] BUN/CREA 17 Ratio Normal 6-22 [facility] Comment on above: Performed By: #### C ROBYN LIPElvie #### [facility] [address], [place] [id number] Calcium [Mass/Vol] 9.8 mg/dL Normal 8.6-10.2 [facility] Comment on above: Performed By: #### C ROBYN LIPD #### [facility] [address], [place] [id number] Chloride [Moles/Vol] 106 mmol/L Normal 98-107 [facility] Comment on above: Performed By: #### C ROBYN LIPElvie #### [facility] [address], [place] [id number] CO2 [Moles/Vol] 23 mmol/L Normal 20-31 [facility] Comment on above: Performed By: #### C ROBYN LIPElvie #### [facility] [address], [place] [id number] Creatinine [Mass/Vol] 1.2 mg/dL Normal 0.7-1.4 [facility] Comment on above: Performed By: #### C ROBYN LIPElvie #### [facility] [address], [place] [id number] eGFRAA 73 mL/min/1.73m2 Normal >60 [facility] Comment on above: Performed By: #### C ROBYN LIPD #### [facility] [address], [place] [id number] eGFRNAA 60 mL/min/1.73m2 Low >60 [facility] Comment on above: Performed By: #### C MP, LIPD #### [facility] [address], [place] [id number] Globulin (S) [Mass/Vol] 2.3 g/dL Normal 1.9-3.7 [facility] Comment on above: Performed By: #### C MP, LIPD #### [facility] [address], [place] [id number] Glucose [Mass/Vol] 105 mg/dL High 65-99 [facility] Comment on above: Result Comment: For FASTING Glucose --- ADA reference ranges: Normal 65-99 mg/dl Prediabetes 100-125 Diabetes >/= 126 Performed By: #### C ROBYN, LIPD #### [facility] [address], [place] [id number] Potassium [Moles/Vol] 4.1 mmol/L Normal 3.5-5.5 [facility] Comment on above: Performed By: #### C MP, LIPD #### [facility] [address], [place] [id number] Protein [Mass/Vol] 6.8 g/dL Normal 6.1-8.1 [facility] Comment on above: Performed By: #### C MP, LIPD #### [facility] [address], [place] [id number] Sodium [Moles/Vol] 142 mmol/L Normal 135-146 [facility] Comment on above: Performed By: #### C MP, LIPD #### [facility] [address], [place] [id number] Urea nitrogen [Mass/Vol] 20 mg/dL Normal 7-25 [facility] Comment on above: Performed By: #### C MP, LIPD #### [facility] [address], [place] [id number] Lipid Panelon 05-11-2021 Cholesterol [Mass/Vol] 109 mg/dL Low 125-200 No [facility] Comment on above: Result Comment: Low risk < 200mg/dL Borderline risk 201-239 mg/dl High risk > or equal to 240 Performed By: #### C MP, LIPD #### [facility] [address], [place] [id number] Cholesterol in HDL [Mass/Vol] 30 mg/dL Low >40 [facility] Comment on above: Result Comment: High Cardiovascular Risk HDL <40 mg/dL Low Cardiovascular Risk HDL > or equal to 60 mg/dl Performed By: #### C MP, LIPD #### [facility] [address], [place] [id number] Cholesterol in LDL [Mass/Vol] 54 mg/dL Normal [facility] Special[facility] Comment on above: Result Comment: LDL ATP III CLASSIFICATION LDL less than 100 mg/dl Optimal LDL 100-129 mg/dl Near or above optimal LDL 130-159 Borderline high LDL 160-189 High LDL greater than 189 mg/dl Very High Performed By: #### C ROBYN, LIPD #### [facility] [address], [place] [id number] Cholesterol in VLDL [Mass/Vol] 25 mg/dL Normal [facility] Comment on above: Performed By: #### C MP, LIPD #### [facility] [address], [place] [id number] Cholesterol.total/Sonya sterol in HDL [Mass ratio] 4 {ratio} Normal [facility] Comment on above: Performed By: #### C MP, LIPD #### [facility] [address], [place] [id number] Triglyceride [Mass/Vol] 126 mg/dL Normal 30-150 [facility] [place] [facility] Comment on above: Result Comment: TRIG ATPIII CLASSIFICATIONS TRIG less than 150 mg/dl Normal TRIG 150-199 mg/dl Borderline High TRIG 200-500 mg/dl High TRIG greather than 500 mg/dl Very High Performed By: #### C MP, LIPD #### [facility] [address], [place] [id number] Vital Signs Date Time Vital Sign Value Performing Clinician Facility 05-21-2024 09:47-0500 Body height 188 cm Teo Al MD Work Phone: [facility] 05-21-2024 09:47-0500 Body mass index (BMI) [Ratio] 26.58 kg/m2 Teo Al MD Work Phone: [facility] 05-21-2024 09:47-0500 Body weight 93.89 kg Teo Al MD Work Phone: [facility] 05-21-2024 09:47-0500 Diastolic blood pressure 70 mm[Hg] Teo Al MD Work Phone: [facility] 05-21-2024 09:47-0500 Heart rate 80 /min Teo Al MD Work Phone: [facility] 05-21-2024 09:47-0500 Systolic blood pressure 106 mm[Hg] Teo Al MD Work Phone: [facility] 05-13-2024 14:38-0500 Body height 188 cm Stanley Emerson MD Work Phone: [facility] 05-13-2024 14:38-0500 Body mass index (BMI) [Ratio] 26.06 kg/m2 Stanley Emerson MD Work Phone: [facility] 05-13-2024 14:38-0500 Body weight 92.08 kg Stanley Emerson MD Work Phone: [facility] 05-13-2024 14:38-0500 Diastolic blood pressure 74 mm[Hg] Stanley Emerson MD Work Phone: [facility] 05-13-2024 14:38-0500 Heart rate 77 /min Stanley Emerson MD Work Phone: [facility] 05-13-2024 14:38-0500 SaO2% (BldA) [Mass fraction] 97 % Stanley Emerson MD Work Phone: [facility] 05-13-2024 14:38-0500 Systolic blood pressure 122 mm[Hg] Stanley Emerson MD Work Phone: [facility] 04-06-2024 11:14-0500 Blood Pressure Location Katia JACOBS [facility] 04-06-2024 11:14-0500 Diastolic blood pressure 69 mm[Hg] Katia JACOBS [facility] 04-06-2024 11:14-0500 Heart rate 79 /min Katia JACOBS [facility] 04-06-2024 11:14-0500 Systolic blood pressure 107 mm[Hg] Katia JACOBS [facility] 03-18-2024 11:18-0400 Body height 188 cm Stanley Emerson MD Work Phone: [facility] 03-18-2024 11:18-0400 Body mass index (BMI) [Ratio] 28.63 kg/m2 Stanley Emerson MD Work Phone: [facility] 03-18-2024 11:18-0400 Body weight 101.15 kg Stanley Emerson MD Work Phone: [facility] 03-18-2024 11:18-0400 Heart rate 82 /min Stanley Emerson MD Work Phone: [facility] 03-18-2024 11:18-0400 SaO2% (BldA) [Mass fraction] 97 % Stanley Emerson MD Work Phone: [facility] 03-08-2024 12:45-0400 Body height 187.96 cm MD Stanley Emerson Work Phone: [facility] 03-08-2024 12:45-0400 Body mass index (BMI) [Ratio] 25.6 kg/m2 MD Stanley Emerson Work Phone: [facility] 03-08-2024 12:45-0400 Body temperature 98.3 [degF] MD Stanley Emerson Work Phone: [facility] 03-08-2024 12:45-0400 Body weight 90.43 kg MD Stanley Emerson Work Phone: [facility] 03-08-2024 12:45-0400 Diastolic blood pressure 69 mm[Hg] MD Stanley Emerson Work Phone: [facility] 03-08-2024 12:45-0400 Heart rate 92 /min MD Stanley Emerson Work Phone: [facility] 03-08-2024 12:45-0400 SaO2% (BldA) [Mass fraction] 99 % MD Stanley Emerson Work Phone: [facility] 03-08-2024 12:45-0400 Systolic blood pressure 103 mm[Hg] MD Stanley Emerson Work Phone: [facility] 02-24-2024 15:19-0400 Body height 188 cm [facility] 02-24-2024 15:19-0400 Body mass index (BMI) [Ratio] 26.32 kg/m2 [facility] 02-24-2024 15:19-0400 Body weight 92.99 kg [facility] 02-24-2024 15:19-0400 Diastolic blood pressure 62 mm[Hg] [facility] 02-24-2024 15:19-0400 Heart rate 85 /min [facility] 02-24-2024 15:19-0400 Systolic blood pressure 100 mm[Hg] [facility] 02-17-2024 11:52-0400 Body height 188 cm Stanley Emerson MD Work Phone: [facility] 02-17-2024 11:52-0400 Body mass index (BMI) [Ratio] 28.63 kg/m2 Stanley Emerson MD Work Phone: [facility] 02-17-2024 11:52-0400 Body weight 101.15 kg Stanley Emerson MD Work Phone: [facility] 02-10-2024 09:13-0400 Body height 188 cm Teo Al MD Work Phone: [facility] 02-10-2024 09:13-0400 Body mass index (BMI) [Ratio] 26.32 kg/m2 Teo Al MD Work Phone: [facility] 02-10-2024 09:13-0400 Body weight 92.99 kg Teo Al MD Work Phone: [facility] 02-10-2024 09:13-0400 Diastolic blood pressure 68 mm[Hg] Teo Al MD Work Phone: [facility] 02-10-2024 09:13-0400 Heart rate 79 /min Teo Al MD Work Phone: [facility] 02-10-2024 09:13-0400 Systolic blood pressure 102 mm[Hg] Teo Al MD Work Phone: [facility] 02-04-2024 11:48-0400 Body height 187.96 cm MD Stanley Emerson Work Phone: [facility] 02-04-2024 11:48-0400 Body mass index (BMI) [Ratio] 28.2 kg/m2 MD Stanley Emerson Work Phone: [facility] 02-04-2024 11:48-0400 Body temperature 96.1 [degF] MD Stanley Emerson Work Phone: [facility] 02-04-2024 11:48-0400 Body weight 99.79 kg MD Stanley Emerson Work Phone: [facility] 02-04-2024 11:48-0400 Diastolic blood pressure 65 mm[Hg] MD Stanley Emerson Work Phone: [facility] 02-04-2024 11:48-0400 Heart rate 76 /min MD Stanley Emerson Work Phone: [facility] 02-04-2024 11:48-0400 Respiratory rate 18 /min MD Stanley Emerson Work Phone: [facility] 02-04-2024 11:48-0400 SaO2% (BldA) [Mass fraction] 96 % MD Stanley Emerson Work Phone: [facility] 02-04-2024 11:48-0400 Systolic blood pressure 99 mm[Hg] MD Stanley Emerson Work Phone: [facility] 01-23-2024 15:00-0400 Body height 187.96 cm MD Stanley Emerson Work Phone: [facility] 01-23-2024 11:19-0400 Diastolic blood pressure 62 mm[Hg] MD Stanley Emerson Work Phone: [facility] 01-23-2024 11:19-0400 Heart rate 64 /min MD Stanley Emerson Work Phone: [facility] 01-23-2024 11:19-0400 Systolic blood pressure 90 mm[Hg] MD Stanley Emerson Work Phone: [facility] 01-23-2024 11:13-0400 Respiratory rate 20 /min MD Stanley Emerson Work Phone: [facility] 01-23-2024 11:13-0400 SaO2% (BldA) [Mass fraction] 96 % MD Stanley Emerson Work Phone: [facility] 01-23-2024 04:44-0400 Body weight 98.6 kg MD Stanley Emerson Work Phone: [facility] 01-22-2024 23:41-0400 Body temperature 98.2 [degF] MD Stanley Emerson Work Phone: [facility] 01-19-2024 10:00-0400 Inhaled oxygen flow rate 2 L/min MD Stanley Emerson Work Phone: [facility] 01-14-2024 09:35-0400 Diastolic blood pressure 67 mm[Hg] MD Stanley Emerson Work Phone: [facility] 01-14-2024 09:35-0400 Heart rate 65 /min MD Stanley Emerson Work Phone: [facility] 01-14-2024 09:35-0400 Respiratory rate 16 /min MD Stanley Emerson Work Phone: [facility] 01-14-2024 09:35-0400 SaO2% (BldA) [Mass fraction] 97 % MD Stanley Emerson Work Phone: [facility] 01-14-2024 09:35-0400 Systolic blood pressure 109 mm[Hg] MD Stanley Emerson Work Phone: [facility] 01-14-2024 07:41-0400 Body height 187.96 cm MD Stanley Emerson Work Phone: [facility] 01-14-2024 07:41-0400 Body weight 104.32 kg MD Stanley Emerson Work Phone: [facility] 10-22-2023 10:57-0400 Body height 187.96 cm MD Stanley Emerson Work Phone: [facility] 10-22-2023 10:57-0400 Body mass index (BMI) [Ratio] 28 kg/m2 MD Stanley Emerson Work Phone: [facility] 10-22-2023 10:57-0400 Body temperature 96.8 [degF] MD Stanley Emerson Work Phone: [facility] 10-22-2023 10:57-0400 Body weight 99.1 kg MD Stanley Emerson Work Phone: [facility] 10-22-2023 10:57-0400 Diastolic blood pressure 76 mm[Hg] MD Stanley Emerson Work Phone: [facility] 10-22-2023 10:57-0400 Heart rate 71 /min MD Stanley Emerson Work Phone: [facility] 10-22-2023 10:57-0400 Respiratory rate 18 /min MD Stanley Emerson Work Phone: [facility] 10-22-2023 10:57-0400 SaO2% (BldA) [Mass fraction] 98 % MD Stanley Emerson Work Phone: [facility] 10-22-2023 10:57-0400 Systolic blood pressure 110 mm[Hg] MD Stanley Emerson Work Phone: [facility] 09-18-2023 10:47-0400 Body height 187.96 cm MD Stanley Emerson Work Phone: [facility] 09-18-2023 10:47-0400 Body mass index (BMI) [Ratio] 28.6 kg/m2 MD Stanley Emerson Work Phone: [facility] 09-18-2023 10:47-0400 Body temperature 97.8 [degF] MD Stanley Emerson Work Phone: [facility] 09-18-2023 10:47-0400 Body weight 101.15 kg MD Stanley Emerson Work Phone: [facility] 09-18-2023 10:47-0400 Diastolic blood pressure 68 mm[Hg] MD Stanley Emerson Work Phone: [facility] 09-18-2023 10:47-0400 Heart rate 64 /min MD Stanley Emerson Work Phone: [facility] 09-18-2023 10:47-0400 Respiratory rate 16 /min MD Stanley Emerson Work Phone: [facility] 09-18-2023 10:47-0400 SaO2% (BldA) [Mass fraction] 98 % MD Stanley Emerson Work Phone: [facility] 09-18-2023 10:47-0400 Systolic blood pressure 118 mm[Hg] MD Stanley Emerson Work Phone: [facility] 06-30-2023 14:17-0500 Blood Pressure Location Katia JACOBS [facility] 06-30-2023 14:17-0500 Diastolic blood pressure 77 mm[Hg] Katia JACOBS [facility] 06-30-2023 14:17-0500 Heart rate 70 /min Katia JACOBS [facility] 06-30-2023 14:17-0500 Respiratory rate 16 /min Katia JACOBS [facility] 06-30-2023 14:17-0500 Systolic blood pressure 109 mm[Hg] Katia JACOBS [facility] 04-15-2023 14:00-0500 Body height 187.96 cm Celia Griffin Other [facility] [employer] Other 04-15-2023 14:00-0500 Body mass index (BMI) [Ratio] 28.73 kg/m2 Celia Griffin Other [employer] [facility] [employer] Other 04-15-2023 14:00-0500 Body temperature 96.8 [degF] Celia Griffin Other [employer] [facility] [employer] Other 04-15-2023 14:00-0500 Body weight 101.52 kg Celia Griffin Other [employer] Other 04-15-2023 14:00-0500 Diastolic blood pressure 100 mm[Hg] Celia Griffin Other [facility] [employer] Other 04-15-2023 14:00-0500 Respiratory rate 18 /min Celia Griffin Other [employer] [facility] [employer] Other 04-15-2023 14:00-0500 SaO2% (BldA) [Mass fraction] 96 % Celia Griffin Other [facility] [employer] Other 04-15-2023 14:00-0500 Systolic blood pressure 161 mm[Hg] Celia Griffin Other [facility] [employer] Other 03-11-2023 13:38-0400 Blood Pressure Location Katia JACOBS [facility] 03-11-2023 13:38-0400 Diastolic blood pressure 100 mm[Hg] Katia JACOBS [facility] 03-11-2023 13:38-0400 Heart rate 72 /min Katia JACOBS [facility] 03-11-2023 13:38-0400 Systolic blood pressure 150 mm[Hg] Katia JACOBS [facility] 01-22-2023 09:57-0400 Body height 187.96 cm Stanley Emerson Work Phone: [facility] [place] [address] DO Work Phone: 01-22-2023 09:57-0400 Body mass index (BMI) [Ratio] 27.35 kg/m2 Stanley Emerson Work Phone: [facility] [employer] DO Work Phone: 01-22-2023 09:57-0400 Body surface area Derived from formula 2.23 m2 Stanley Emerson Work Phone: [facility] 250 DO Work Phone: 01-22-2023 09:57-0400 Body weight 96.62 kg Stanley Emerson Work Phone: [facility] 250 DO Work Phone: 01-22-2023 09:57-0400 Diastolic blood pressure 88 mm[Hg] Stanley Singhyer Work Phone: [facility] DO Work Phone: 01-22-2023 09:57-0400 Heart rate 72 /min Stanley Emerson Work Phone: [facility] 250 DO Work Phone: 01-22-2023 09:57-0400 Systolic blood pressure 126 mm[Hg] Stanley Emerson Work Phone: [facility] [employer] DO Work Phone: 08-21-2022 14:30-0400 Body height 187.96 cm Carleneemiliana Kasper Other [employer] Other 08-21-2022 14:30-0400 Body mass index (BMI) [Ratio] 26.32 kg/m2 Carlene Kasper Other [employer] Other 08-21-2022 14:30-0400 Body temperature 97.8 [degF] Carlene Kasper Other [employer] Other 08-21-2022 14:30-0400 Body weight 92.99 kg Carlene Kasper Other [employer] Other 08-21-2022 14:30-0400 Diastolic blood pressure 82 mm[Hg] Carlene Kasper Other [employer] Other 08-21-2022 14:30-0400 SaO2% (BldA) [Mass fraction] 96 % Carlene Kasper Other [employer] Other 08-21-2022 14:30-0400 Systolic blood pressure 124 mm[Hg] Carlene Kasper Other [employer] Other 07-31-2022 07:25-0500 Blood Pressure Location Katia tamyca [facility] 07-31-2022 07:25-0500 Diastolic blood pressure 89 mm[Hg] Katia JACOBS [facility] 07-31-2022 07:25-0500 Heart rate 70 /min Katia JACOBS [facility] 07-31-2022 07:25-0500 Respiratory rate 16 /min Katia JACOBS [facility] 07-31-2022 07:25-0500 Systolic blood pressure 130 mm[Hg] Katia JACOBS [facility] 07-25-2022 09:45-0500 Body height 187.96 cm Margarito Valentine Other [employer] Other 07-25-2022 09:45-0500 Body mass index (BMI) [Ratio] 26.32 kg/m2 Margarito Valentine Other [employer] Other 07-25-2022 09:45-0500 Body temperature 96.2 [degF] Margarito Topetesarina Other [employer] Other 07-25-2022 09:45-0500 Body weight 92.99 kg Margarito Topetesarina Other [employer] Other 07-25-2022 09:45-0500 Diastolic blood pressure 60 mm[Hg] Margarito Serge Other [employer] Other 07-25-2022 09:45-0500 SaO2% (BldA) [Mass fraction] 97 % Margarito Topetesarina Other [employer] Other 07-25-2022 09:45-0500 Systolic blood pressure 110 mm[Hg] Margarito Serge Other [employer] Other 07-03-2022 07:34-0500 Body temperature 98.9 [degF] MD Stanley Emerson Work Phone: [facility] 07-03-2022 07:34-0500 Diastolic blood pressure 91 mm[Hg] MD Stanley Emerson Work Phone: [facility] 07-03-2022 07:34-0500 Heart rate 87 /min MD Stanley Emerson Work Phone: [facility] 07-03-2022 07:34-0500 Respiratory rate 18 /min MD Stanley Emerson Work Phone: [facility] 07-03-2022 07:34-0500 SaO2% (BldA) [Mass fraction] 94 % MD Stanley Emerson Work Phone: [facility] 07-03-2022 07:34-0500 Systolic blood pressure 159 mm[Hg] MD Stanley Emerson Work Phone: [facility] 07-03-2022 05:46-0500 Body weight 94 kg MD Stanley Emerson Work Phone: [facility] 07-02-2022 16:27-0500 Inhaled oxygen flow rate 6 L/min MD Stanley Emerson Work Phone: [facility] 07-02-2022 10:06-0500 Body height 185.42 cm MD Stanley Emerson Work Phone: [facility] 07-02-2022 10:06-0500 Body mass index (BMI) [Ratio] 27.3 kg/m2 MD Stanley Emerson Work Phone: [facility] 06-19-2022 10:00-0500 Body height 187.96 cm Margarito Valentine Other [employer] Other 06-19-2022 10:00-0500 Body mass index (BMI) [Ratio] 26.32 kg/m2 Margarito Valentine Other [employer] Other 06-19-2022 10:00-0500 Body temperature 97.8 [degF] Margarito Valentine Other [employer] Other 06-19-2022 10:00-0500 Body weight 92.99 kg Margarito Valentine Other [employer] Other 06-19-2022 10:00-0500 Diastolic blood pressure 68 mm[Hg] Margarito Valentine Other [employer] Other 06-19-2022 10:00-0500 SaO2% (BldA) [Mass fraction] 95 % Margarito Valentine Other [employer] Other 06-19-2022 10:00-0500 Systolic blood pressure 108 mm[Hg] Margarito Valentine Other [employer] Other 06-12-2022 13:07-0500 Body height 187.96 cm MD Stanley Emerson Work Phone: [facility] 06-12-2022 13:07-0500 Body weight 93.44 kg MD Stanley Emerson Work Phone: [facility] 06-06-2022 12:00-0500 Body height 187.96 cm Margarito Valentine Other [employer] Other 06-06-2022 12:00-0500 Body mass index (BMI) [Ratio] 26.32 kg/m2 Margarito Valentine Other [employer] Other 06-06-2022 12:00-0500 Body temperature 97.2 [degF] Margarito Valentine Other [employer] Other 06-06-2022 12:00-0500 Body weight 92.99 kg Margarito Valentine Other [employer] Other 06-06-2022 12:00-0500 Diastolic blood pressure 70 mm[Hg] Margarito Valentine Other [employer] Other 06-06-2022 12:00-0500 SaO2% (BldA) [Mass fraction] 98 % Margarito Valentine Other [employer] Other 06-06-2022 12:00-0500 Systolic blood pressure 108 mm[Hg] Margarito Valentine Other [employer] Other 06-04-2022 12:00-0500 Body height 187.96 cm Celia Griffin Other [employer] Other 06-04-2022 12:00-0500 Body mass index (BMI) [Ratio] 26.42 kg/m2 Celia Griffin Other [employer] Other 06-04-2022 12:00-0500 Body temperature 96.6 [degF] Celia Griffin Other [employer] Other 06-04-2022 12:00-0500 Body weight 93.35 kg Celia Griffin Other [employer] Other 06-04-2022 12:00-0500 Diastolic blood pressure 70 mm[Hg] Celia Griffin Other [employer] Other 06-04-2022 12:00-0500 Respiratory rate 20 /min Celia Griffin Other [employer] Other 06-04-2022 12:00-0500 SaO2% (BldA) [Mass fraction] 98 % Celia Griffin Other [employer] Other 06-04-2022 12:00-0500 Systolic blood pressure 100 mm[Hg] Celia Griffin Other [employer] Other 06-03-2022 15:38-0500 Body height 187.96 cm tSanley Emerson Work Phone: [facility] [employer] DO Work Phone: 06-03-2022 15:38-0500 Body mass index (BMI) [Ratio] 26.45 kg/m2 Stanley Emerson Work Phone: [facility] DO Work Phone: 06-03-2022 15:38-0500 Body surface area Derived from formula 2.2 m2 Stanley Singhjose cruz Work Phone: [facility] DO Work Phone: 06-03-2022 15:38-0500 Body weight 93.44 kg Stanley Rich Idania Work Phone: [facility] DO Work Phone: 06-03-2022 15:38-0500 Diastolic blood pressure 78 mm[Hg] Stanley Rich Idania Work Phone: [facility] 250 DO Work Phone: 06-03-2022 15:38-0500 Heart rate 71 /min Stanley Singhjose cruz Work Phone: [facility] DO Work Phone: 06-03-2022 15:38-0500 Systolic blood pressure 106 mm[Hg] Stanley Singhjose cruz Work Phone: [facility] DO Work Phone: 05-22-2022 11:53-0500 Body temperature 98.8 [degF] MD Stanley Emerson Work Phone: [facility] 05-22-2022 11:53-0500 Diastolic blood pressure 72 mm[Hg] MD Stanley Emerson Work Phone: [facility] 05-22-2022 11:53-0500 Heart rate 78 /min MD Stanley Emerson Work Phone: [facility] 05-22-2022 11:53-0500 Respiratory rate 16 /min MD Stanley Emerson Work Phone: [facility] 05-22-2022 11:53-0500 SaO2% (BldA) [Mass fraction] 97 % MD Stanley Emerson Work Phone: [facility] 05-22-2022 11:53-0500 Systolic blood pressure 108 mm[Hg] MD Stanley Emerson Work Phone: [facility] 05-22-2022 06:02-0500 Body weight 88.8 kg MD Stanley Emerson Work Phone: [facility] 05-21-2022 11:48-0500 63 1 Stanley Emerson Work Phone: [facility] 250 DO Work Phone: Comment on above: [id number] 05-17-2022 12:08-0500 Body height 187.96 cm MD Stanley Emerson Work Phone: [facility] Encounters Encounter Date Encounter Type Care Provider Facility Start: 06-29-2024 ambulatory PA-C HEATHER OMALLEY Facility:[facility] Start: 06-01-2024 End: 06-01-2024 ambulatory Blanca X Orzech Facility: [facility] Start: 06-01-2024 End: 06-01-2024 Patient encounter procedure Blanca X Orzech [facility] Start: 05-21-2024 End: 05-21-2024 Refill Stanley Emerson MD Work Phone: [facility] Comment on above: Simple chronic bronc hitis (CMS/HCC) Start: 05-21-2024 End: 05-21-2024 Office outpatient visit 25 minutes Teo Al MD Work Phone: [facility] Comment on above: Paroxysmal atrial fi brillation (Multi); High risk medication use; Coronary artery disease involving [place] coronary artery of [place]ki[place] heart without angina pectoris; S/P PTCA (percutaneous transluminal coronary angioplasty); ST elevation myocardial infarction (STEMI), unspecified artery (Multi); Cardiomyopathy, ischemic; Essential hypertension; Dyslipidemia; Abdominal aortic aneurysm (AAA) greater than 5.5 cm in diameter in male (CMS-HCC); Transient cerebral ischemia, unspecified type; Stage 3a chronic kidney disease (Multi); BMI 26.0-26.9,adult; Former smoker Start: 05-21-2024 End: 05-21-2024 ambulatory Stanley Emerson Facility:[facility] Start: 05-13-2024 End: 05-13-2024 Patient encounter procedure Stanley Emerson MD Work Phone: [facility] Comment on above: Encounter for Medica re annual wellness exam (Primary Dx); Advance directive discussed with patient; Encounter for screening for other disorder; Screening for alcohol problem; Former smoker; Overweight Start: 05-13-2024 End: 05-13-2024 ambulatory STANLEY EMERSON Not Available Start: 05-13-2024 End: 05-13-2024 Bamboo evette Emerson MD Work Phone: [facility] Start: 05-13-2024 End: 05-13-2024 Bamboo flowswaqar Emerson MD Work Phone: [facility] Start: 05-10-2024 End: 05-10-2024 Bamboo flowswaqar Emerson MD Work Phone: [facility] Start: 05-10-2024 End: 05-10-2024 Bamboo flowswaqar Emerson MD Work Phone: [facility] Start: 05-10-2024 End: 05-10-2024 Office outpatient visit 40 minutes Stanley Emerson MD Work Phone: [facility] Comment on above: Essential hypertensi on, benign (CMS/HCC); Hypertensive nephropathy (CMS/HCC); Stage 3a chronic kidney disease (HCC) (CMS/HCC); Microalbuminuria; Panlobular emphysema (CMS/HCC); Simple chronic bronchitis (CMS/HCC); Mixed dyslipidemia (CMS/HCC); Polypharmacy; Mixed conductive and sensorineural hearing loss of both ears; Former smoker; Overweight Start: 05-10-2024 End: 05-10-2024 ambulatory STANLEY EMERSON Not Available Start: 05-06-2024 ambulatory Fabigiselle Gomez Facility :[facility] Start: 05-05-2024 End: 05-05-2024 ambulatory Fabi Gomez Facility:[facility] Start: 04-28-2024 End: 04-30-2024 Clinisync Result Encounter Generic External Data Provider [facility] External Department Unsolicited Start: 04-28-2024 End: 04-30-2024 Clinisync Result Encounter Generic External Data Provider [facility] External Department Unsolicited Start: 04-06-2024 End: 04-06-2024 ambulatory Katia JACOBS Facility:[facility] Start: 04-06-2024 End: 04-06-2024 Lab Drop off Katia JACOBS [facility] Start: 04-06-2024 End: 04-06-2024 ambulatory Katia JACOBS Facility:[facility] Start: 04-06-2024 End: 04-06-2024 Patient encounter procedure Katia JACOBS [facility] Start: 03-23-2024 End: 03-23-2024 Clinisync Result Encounter Generic External Data Provider [facility] External Department Unsolicited Start: 03-23-2024 End: 03-23-2024 Clinisync Result Encounter Generic External Data Provider [facility] External Department Unsolicited Start: 03-18-2024 End: 03-18-2024 Bamboo flowsheet Stanley Emerson MD Work Phone: [facility] Start: 03-18-2024 End: 03-18-2024 Bamboo flowsheet Stanley Emerson MD Work Phone: [facility] Start: 03-18-2024 End: 03-18-2024 Office outpatient visit 15 minutes Stanley Emerson MD Work Phone: [facility] Comment on above: Pneumonia of right l ower lobe due to infectious organism Start: 03-18-2024 End: 03-18-2024 ambulatory EDWARD J HEMEYER Not Available Start: 03-08-2024 End: 03-08-2024 Patient encounter procedure MD Stanley Emerson Work Phone: [facility] Work Phone: Start: 03-08-2024 End: 03-08-2024 ambulatory MD Stanley Emerson Work Phone: [facility] Work Phone: Start: 03-04-2024 End: 03-04-2024 Clinisync Result Encounter Generic External Data Provider [facility] External Department Unsolicited Start: 03-04-2024 End: 03-04-2024 Clinisync Result Encounter Generic External Data Provider [facility] External Department Unsolicited Start: 03-02-2024 End: 03-02-2024 ambulatory Blanca X Orfidel Facility:[facility] Start: 03-02-2024 End: 03-02-2024 Patient encounter procedure Blanca X Orzech [facility] Start: 02-24-2024 End: 02-24-2024 Professional / ancillary services management Leanne Soriano LPN [facility] Comment on above: Paroxysmal atrial fi brillation (Multi) Start: 02-24-2024 End: 02-24-2024 ambulatory TEO Mendez [facility] Ambulatory Start: 02-17-2024 End: 02-17-2024 ambulatory STANLEY EMERSON Not Available Start: 02-17-2024 End: 02-17-2024 Office outpatient visit 15 minutes Stanley Emerson MD Work Phone: [facility] Comment on above: Pneumonia of left lo wer lobe due to infectious organism (Primary Dx); Simple chronic bronchitis (CMS/HCC) Start: 02-10-2024 End: 02-10-2024 Office outpatient visit 40 minutes Teo Al MD Work Phone: [facility] Comment on above: Coronary artery dise ase involving [place] coronary artery of [place]ki[place] heart without angina pectoris (Primary Dx); Paroxysmal atrial fibrillation (Multi); High risk medication use; S/P PTCA (percutaneous transluminal coronary angioplasty); Cardiomyopathy, ischemic; ST elevation myocardial infarction (STEMI), unspecified artery (Multi); Dyslipidemia; Stage 3a chronic kidney disease (Multi); Transient cerebral ischemia, unspecified type; BMI 26.0-26.9,adult; Former smoker; QT prolongation Start: 02-10-2024 End: 02-10-2024 ambulatory [facility] Amb[facility] Start: 02-04-2024 End: 02-04-2024 ambulatory MD Stanley Emerson Work Phone: [facility] Work Phone: Start: 02-04-2024 End: 02-04-2024 Patient encounter procedure MD Stanley Emerson Work Phone: [facility] Nephrology [facility] Work Phone: Start: 01-29-2024 End: 01-29-2024 ambulatory STANLEY EMERSON Not Available Start: 01-23-2024 Non-patient / Non-visit MD Kai Emerson Work Phone: [facility] Rehab and Spine Work Phone: Start: 01-20-2024 ambulatory Blanca X Orzech Facilit y:[facility] [place] Start: 01-16-2024 Non-patient / Non-visit MD Kai Emerson Work Phone: [facility] Work Phone: Start: 01-16-2024 Non-patient / Non-visit MD Kai Emerson Work Phone: [facility] Pulmonary Disease Work Phone: Start: 01-16-2024 End: 01-23-2024 Evaluation and management of inpatient MD Stanley Emerson Work Phone: [facility] [place] [facility] Work Phone: Start: 01-14-2024 Non-patient / Non-visit MD Kai Emerson Work Phone: [facility] Gastroenterology Work Phone: Start: 01-14-2024 End: 01-14-2024 Admission to same day surgery center MD Stanley Emerson Work Phone: [facility] Work Phone: Start: 01-14-2024 End: 01-14-2024 ambulatory MD Stanley Emerson Work Phone: [facility] Work Phone: Start: 12-26-2023 End: 12-26-2023 Patient encounter procedure MD Stanley Emerson Work Phone: [facility] Start: 12-26-2023 End: 12-26-2023 ambulatory MD Stanley Emerson Work Phone: [facility] Work Phone: Start: 12-25-2023 End: 12-25-2023 ambulatory Fabi J Galea Facility:[facility] [place] Start: 12-25-2023 End: 12-25-2023 Patient encounter procedure [facility] Gomez [facility] Start: 11-19-2023 End: 11-19-2023 ambulatory STANLEY EMERSON Not Available Start: 11-04-2023 End: 11-04-2023 ambulatory Blanca X Orzech Facility:[facility] Start: 11-04-2023 End: 11-04-2023 Patient encounter procedure [facility] Orzech [facility] Start: 10-22-2023 End: 10-22-2023 ambulatory MD Stanley Emerson Work Phone: [facility] Work Phone: Start: 10-22-2023 End: 10-22-2023 Patient encounter procedure MD Stanley Emerson Work Phone: [facility] Nephrology Work Phone: Start: 10-16-2023 Non-patient / Non-visit MD Kai Emerson Work Phone: [facility] Work Phone: Start: 10-07-2023 End: 10-07-2023 ambulatory Katia JACOBS Facility:[facility] Start: 10-07-2023 End: 10-07-2023 Patient encounter procedure Katia JACOBS [facility] Start: 10-06-2023 End: 10-06-2023 ambulatory STANLEY EMERSON Not Available Start: 10-03-2023 End: 10-03-2023 Lab Drop off Katia JACOBS [facility] Start: 10-03-2023 End: 10-03-2023 ambulatory Katia JACOBS Facility:[facility] Start: 10-03-2023 End: 10-03-2023 Patient encounter procedure Katia Isabel JACOBS [facility] Start: 09-30-2023 Non-patient / Non-visit MD Kai Emerson Work Phone: [facility] Nephrology Work Phone: Start: 09-18-2023 Bradyarrhythmia MD Stanley billingsley Work Phone: [facility] Start: 09-18-2023 End: 09-18-2023 ambulatory MD Stanley Emerson Work Phone: [facility] Work Phone: Start: 09-18-2023 End: 09-18-2023 Patient encounter procedure MD Stanley Emerson Work Phone: [facility] Vascular Surgery Work Phone: Start: 09-11-2023 End: 09-11-2023 ambulatory Katia JACOBS Facility:[facility] Start: 09-11-2023 End: 09-11-2023 Patient encounter procedure Katia JACOBS [facility] [place] Start: 08-18-2023 End: 08-18-2023 Patient encounter procedure MD Stanley Emerson Work Phone: [facility] [place] Work Phone: Start: 08-18-2023 End: 08-18-2023 ambulatory MD Stanley Emerson Work Phone: [facility] Work Phone: Start: 08-15-2023 End: 08-15-2023 ambulatory Katia JACOBS Facility:[facility] Start: 08-15-2023 End: 08-15-2023 Patient encounter procedure Katia JACOBS [facility] [place] Start: 08-04-2023 End: 08-04-2023 ambulatory STANLEY EMERSON Not Available Start: 07-01-2023 End: 07-01-2023 ambulatory Katia JACOBS Facility:[facility] Start: 06-30-2023 End: 06-30-2023 ambulatory Katia JACOBS Facility:[facility] Start: 06-30-2023 End: 06-30-2023 Patient encounter procedure Katia JACOBS [facility] [place] Start: 06-16-2023 End: 06-16-2023 ambulatory Katia JACOBS Facility:[facility] Start: 06-16-2023 End: 06-16-2023 Patient encounter procedure Katia JACOBS [facility] [place] Start: 06-10-2023 End: 06-10-2023 ambulatory Katia JACOBS Facility:[facility] Start: 06-10-2023 End: 06-10-2023 Patient encounter procedure Katia JACOBS [facility] Start: 05-28-2023 End: 05-28-2023 ambulatory STANLEY EMERSON Not Available Start: 05-06-2023 End: 05-06-2023 ambulatory Aziz Bakhous Other [employer] Other Start: 05-06-2023 Telephone encounter Aziz Bakhous [facility] Start: 04-16-2023 End: 04-16-2023 ambulatory Aziz Bakhous Other [employer] Other Start: 04-16-2023 Telephone encounter Aziz Bakhous [facility] Start: 04-15-2023 End: 04-15-2023 ambulatory Aziz Bakhous Other [employer] Other Start: 04-15-2023 Office outpatient vi sit 25 minutes Aziz Bakhous [facility] Start: 04-08-2023 End: 04-08-2023 ambulatory MD Stanley Emerson Work Phone: [facility] Work Phone: Start: 04-08-2023 End: 04-08-2023 Patient encounter procedure MD Stanley Emerson Work Phone: [facility] Start: 03-11-2023 End: 03-11-2023 Lab Drop off Katia JACOBS [facility] Start: 03-11-2023 End: 03-11-2023 Patient encounter procedure Katia JACOBS [facility] [place] Start: 01-22-2023 Office outpatient vi sit 25 minutes Stanley Emerson Work Phone: [facility] 250 DO Work Phone: Start: 01-22-[address] Teo Al Facility: Start: 12-25-2022 End: 12-25-2022 Patient encounter procedure Katia JACOBS [facility] Start: 12-10-2022 End: 12-10-2022 Lab Drop off Katiadesi JACOBS [facility] Start: 12-10-2022 End: 12-10-2022 Patient encounter procedure Katia JACOBS [facility] [place] Start: 10-04-2022 End: 10-04-2022 Patient encounter procedure Katia JACOBS [facility] [place] Start: 09-18-2022 End: 09-18-2022 Patient encounter procedure Katia JACOBS [facility] [place] Start: 09-15-2022 End: 09-15-[address] STANLEY EMERSON . Facility:[facility] Start: 09-12-2022 End: 09-12-[address] STANLEY EMERSON . Facility:[facility] Start: 09-08-2022 Encounter for preprocedural laboratory examination NDJESSIE [facility] Start: 09-04-2022 End: 09-05-[address] STANLEY EMERSON . Facility:[facility] Start: 09-04-2022 Encounter for preprocedural cardiovascular examination DR KATIA JACOBS . [facility] Start: 09-02-2022 End: 09-03-[address] STANLEY EMERSON . Facility:[facility] Start: 09-02-2022 End: 09-03-2022 Encounter for preprocedural laboratory examination DR STANLEY EMERSON . Facility:[facility] Start: 09-02-2022 End: 09-03-[address] STANLEY EMERSON . Facility:[facility] Start: 09-02-2022 End: 09-03-2022 Encounter for preprocedural cardiovascular examination DR STANLEY EMERSON . Facility:[facility] Start: 08-21-2022 End: 08-21-2022 ambulatory Carlene Kasper Other [employer] Other Start: 08-21-2022 Follow-up encounter Carlene Dickerson [facility] Start: 08-16-2022 End: 08-16-2022 ambulatory MD Stanley Emerson Work Phone: [facility] Work Phone: Start: 08-16-2022 End: 08-16-2022 Patient encounter procedure MD Stanley Emerson Work Phone: [facility] [place] Work Phone: Start: 07-31-2022 End: 07-31-2022 Patient encounter procedure Katia JACOBS [facility] Start: 07-25-2022 End: 07-25-2022 ambulatory Margarito Valentine Other [employer] Other Start: 07-25-2022 Postop follow up vis it related to original px Margarito Valentine [facility] Start: 07-24-2022 End: 07-24-2022 ambulatory MD Stanley Emerson Work Phone: [facility] Work Phone: Start: 07-24-2022 End: 07-24-2022 Patient encounter procedure MD Stanley Emerson Work Phone: [facility] [place] Work Phone: Start: 07-02-2022 End: 07-03-2022 Evaluation and management of inpatient MD Stanley Emerson Work Phone: [facility] Work Phone: Start: 06-21-2022 End: 06-21-2022 Patient encounter procedure MD Stanley Emerson Work Phone: [facility] Work Phone: Start: 06-19-2022 End: 06-19-2022 ambulatory Margarito Valentine Other [employer] Other Start: 06-19-2022 Office outpatient vi sit 25 minutes Margarito Valentine [facility] Start: 06-12-2022 End: 06-12-2022 ambulatory MD Stanley Emerson Work Phone: [facility] Work Phone: Start: 06-12-2022 End: 06-12-2022 Patient encounter procedure MD Stanley Emerson Work Phone: [facility] [place] Work Phone: Start: 06-11-2022 End: 06-11-2022 Patient encounter procedure HEATHER OMALLEY [facility] Start: 06-06-2022 End: 06-06-2022 ambulatory Margarito Valentine Other [employer] Other Start: 06-06-2022 Office outpatient vi sit 25 minutes Margarito Valentine [facility] Start: 06-04-2022 End: 06-04-2022 ambulatory Celia Starkscatherinefrancoise Other [facility] Other Start: 06-04-2022 Office outpatient vi sit 25 minutes Celia Griffin [facility] Start: 06-03-2022 Office outpatient vi sit 25 minutes Stanley Emerson Work Phone: [facility] 250 DO Work Phone: Start: 06-03-[address] Stanley Emerson Facility:[id number] Start: 05-21-[address] Stanley Emerson Facility:[id number] Start: 05-20-[address] Stanley Emerson Facility:[id number] Start: 05-19-[address] Teo Al Facility:[id number] Start: 05-18-[address] Teo Al Facility:[id number] Start: 05-17-[address] Stanley Emerson Facility:[id number] Start: 05-17-2022 Bradyarrhythmia MD Stanley billingsley Work Phone: [facility] Start: 05-17-[address] Teo Al Facility:[id number] Start: 05-16-2022 End: 05-22-2022 Encounter for preprocedural cardiovascular examination MD Stanley Emerson Work Phone: [facility] Start: 05-16-2022 End: 05-22-2022 Evaluation and management of inpatient MD Stanley Emerson Work Phone: [facility] [place] [facility] Work Phone: Start: 05-16-2022 End: 05-16-[address] STANLEY EMERSON . Facility:[facility] Start: 05-15-2022 End: 05-16-[address] STANLEY EMERSON . Facility:[facility] Start: 01-04-2022 End: 01-04-[address] STANLEY EMERSON . Facility: Patient encounter status Stanley Rich Samanthajose cruz Work Phone: [facility] 250 DO Work Phone: End: 01-22-2023 Patient encounter status Stanley Rich Idania Work Phone: [facility] 250 DO Work Phone: Procedures Date Procedure Procedure Detail Performing Clinician Start: 05-21-2024 Ecg routine ecg w/le ast 12 lds w/i&r Teo Al MD Work Phone: Start: 04-28-2024 BLOOD CULTURE 2 Generic External Data Provider Start: 04-28-2024 BLOOD CULTURE 1 Generic External Data Provider Start: 04-06-2024 Flexible cystoscopy Rosemary JACOBS Start: 03-23-2024 ALL HEMOGLOBIN Generic External Data Provider Start: 03-08-2024 Quick Strep (POC) Ed [place] Idania Work Phone: Start: 03-08-2024 Plain chest X-ray Ed [place] Idania Work Phone: Start: 03-04-2024 ALL HEMOGLOBIN Generic External Data Provider Start: 02-10-2024 Ecg routine ecg w/le ast 12 lds w/i&r Teo Al MD Work Phone: Start: 01-23-2024 Bacteria identified in Urine by Culture MD Stanley Emerson Work Phone: Start: 01-23-2024 Urine culture MD Stanley Emerson Work Phone: Start: 01-17-2024 Bacteria identified in Urine by Culture MD Stanley Emerson Work Phone: Start: 01-17-2024 Urine culture MD Stanley Emerson Work Phone: Start: 01-17-2024 Plain chest X-ray Ed [place] Idania Work Phone: Start: 01-16-2024 CL Iliac/Fem w/LHC [...] Treatment Date Care Activity Detail Author Start: 03-21-2025 End: 05-21-2025 Complete Pulmonary Function Test (Spirometry/DLCO/Lung Volumes) Complete Pulmonary Function Test (Spirometry/DLCO/Lung Volumes) PFT Routine Paroxysmal atrial fibrillation (Multi) High risk medication use Expected: 03/21/2025 (Approximate), Expires: 05/21/2025 [facility] Work Phone: Comment on above: Expected: 03/21/2025 (Approximate), Expi res: 05/21/2025 Start: 03-21-2025 End: 05-21-2025 XR Chest 2 Views XR chest 2 views Imaging Routine Paroxysmal atrial fibrillation (Multi) High risk medication use Expected: 03/21/2025, Expires: 05/21/2025 [facility] Work Phone: Comment on above: Expected: 03/21/2025, Expires: Start: 01-15-2025 Echocardiography Echocardiogram [facility] Start: 11-19-2024 End: 05-21-2025 Alanine aminotransferase [Enzymatic activity/volume] in Serum or Plasma by With P-5'-P Alanine Aminotransferase Lab Routine Paroxysmal atrial fibrillation (Multi) High risk medication use Expected: 11/19/2024 (Approximate), Expires: 05/21/2025 [facility] Work Phone: Comment on above: Expected: 11/19/2024 (Approximate), Expi res: 05/21/2025 Start: 11-19-2024 End: 05-21-2025 Aspartate aminotransferase [Enzymatic activity/volume] in Serum or Plasma by With P-5'-P Aspartate Aminotransferase Lab Routine Paroxysmal atrial fibrillation (Multi) High risk medication use Expected: 11/19/2024 (Approximate), Expires: 05/21/2025 [facility] Work Phone: Comment on above: Expected: 11/19/2024 (Approximate), Expi res: 05/21/2025 Start: 11-19-2024 End: 05-21-2025 Basic metabolic 2000 panel - Serum or Plasma Basic Metabolic Panel Lab Routine Paroxysmal atrial fibrillation (Multi) High risk medication use Expected: 11/19/2024 (Approximate), Expires: 05/21/2025 [facility] Work Phone: Comment on above: Expected: 11/19/2024 (Approximate), Expi res: 05/21/2025 Start: 11-19-2024 End: 05-21-2025 CBC panel - Blood by Automated count CBC Lab Routine Paroxysmal atrial fibrillation (Multi) High risk medication use Expected: 11/19/2024 (Approximate), Expires: 05/21/2025 [facility] Work Phone: Comment on above: Expected: 11/19/2024 (Approximate), Expi res: 05/21/2025 Start: 11-19-2024 End: 05-21-2025 Lipid 1996 panel - Serum or Plasma Lipid Panel Lab Routine Dyslipidemia Expected: 11/19/2024 (Approximate), Expires: 05/21/2025 [facility] Work Phone: Comment on above: Expected: 11/19/2024 (Approximate), Expi res: 05/21/2025 Start: 11-19-2024 End: 05-21-2025 Thyrotropin [Units/volume] in Serum or Plasma Thyroid Stimulating Hormone Lab Routine Paroxysmal atrial fibrillation (Multi) High risk medication use Expected: 11/19/2024 (Approximate), Expires: 05/21/2025 [facility] Work Phone: Comment on above: Expected: 11/19/2024 (Approximate), Expi res: 05/21/2025 Start: 10-05-2024 ambulatory Ambulatory [facility] Start: 07-29-2024 End: 07-29-2024 Patient encounter procedure 07/29/2024 11:00 AM EST Office Visit [place] [id number] [place] [phone] Teo Al MD [address] [facility] [address] [place] [address] [facility] Start: 05-21-2024 End: 05-21-2025 Alanine aminotransferase [Enzymatic activity/volume] in Serum or Plasma by With P-5'-P Alanine Aminotransferase Lab Routine Paroxysmal atrial fibrillation (Multi) High risk medication use Expected: 05/21/2024 (Approximate), Expires: 05/21/2025 [facility] Work Phone: Comment on above: Expected: 05/21/2024 (Approximate), Expi res: 05/21/2025 Start: 05-21-2024 End: 05-21-2025 Aspartate aminotransferase [Enzymatic activity/volume] in Serum or Plasma by With P-5'-P Aspartate Aminotransferase Lab Routine Paroxysmal atrial fibrillation (Multi) High risk medication use Expected: 05/21/2024 (Approximate), Expires: 05/21/2025 [facility] Work Phone: Comment on above: Expected: 05/21/2024 (Approximate), Expi res: 05/21/2025 Start: 05-21-2024 End: 05-21-2025 Basic metabolic 2000 panel - Serum or Plasma Basic Metabolic Panel Lab Routine Paroxysmal atrial fibrillation (Multi) High risk medication use Expected: 05/21/2024 (Approximate), Expires: 05/21/2025 [facility] Work Phone: Comment on above: Expected: 05/21/2024 (Approximate), Expi res: 05/21/2025 Start: 05-21-2024 End: 05-21-2025 Thyrotropin [Units/volume] in Serum or Plasma Thyroid Stimulating Hormone Lab Routine Paroxysmal atrial fibrillation (Multi) High risk medication use Expected: 05/21/2024 (Approximate), Expires: 05/21/2025 [facility] Work Phone: Comment on above: Expected: 05/21/2024 (Approximate), Expi res: 05/21/2025 Start: 05-13-2024 End: 05-13-2024 Patient encounter procedure [facility] 100 Comment on above: Encounter for Medicare annual wellness e xam; Advance directive discussed with patient; Encounter for screening for other disorder; Screening for alcohol problem; Former smoker; Polypharmacy Start: 05-10-2024 End: 05-10-2024 Patient encounter procedure 05/10/2024 11:00 AM EST Office Visit [facility] 100 [address] [facility] [address] [place] [address] Stanley Emerson MD [address] [facility] [address] [place] [address] Essential hypertension, benign (CMS/HCC); Hypertensive nephropathy (CMS/HCC); Stage 3a chronic kidney disease (HCC) (CMS/HCC); Microalbuminuria; Panlobular emphysema (CMS/HCC); Simple chronic bronchitis (CMS/HCC); Mixed dyslipidemia (CMS/HCC); Polypharmacy; Mixed conductive and sensorineural hearing loss of both ears; Former smoker; Overweight [facility] 100 Comment on above: Essential hypertension, benign (CMS/HCC) ; Hypertensive nephropathy (CMS/HCC); Stage 3a chronic kidney disease (HCC) (CMS/HCC); Microalbuminuria; Panlobular emphysema (CMS/HCC); Simple chronic bronchitis (CMS/HCC); Mixed dyslipidemia (CMS/HCC); Polypharmacy; Mixed conductive and sensorineural hearing loss of both ears; Former smoker; Overweight Start: 05-06-2024 End: 05-06-2024 Patient encounter procedure [facility] 100 Start: 04-12-2024 End: 04-12-2024 Patient encounter procedure 04/12/2024 3:20 PM EST Office Visit [facility] [address] [facility] [address] [place] [phone] Teo Al MD [address] [facility] [address], [address] [place] [address] [facility] Start: 03-18-2024 End: 03-18-2024 Patient encounter procedure 03/18/2024 11:30 AM EDT Office Visit [facility] [address] [facility] [address] [place] [address] Stanley Emerson MD [address] [address] (Fax) Pneumonia of right lower lobe due to infectious organism [facility] 100 Comment on above: Pneumonia of right lower lobe due to inf ectious organism Start: 03-11-2024 End: 02-09-2025 Complete Pulmonary Function Test (Spirometry/DLCO/Lung Volumes) Complete Pulmonary Function Test (Spirometry/DLCO/Lung Volumes) PFT Routine Paroxysmal atrial fibrillation (Multi) High risk medication use Expected: 03/11/2024 (Approximate), Expires: 02/09/2025 [facility] Work Phone: Comment on above: Expected: 03/11/2024 (Approximate), Expi res: 02/09/2025 Start: 03-11-2024 End: 02-09-2025 XR Chest 2 Views XR chest 2 views Imaging Routine Paroxysmal atrial fibrillation (Multi) High risk medication use Expected: 03/11/2024, Expires: 02/09/2025 [facility] Work Phone: Comment on above: Expected: 03/11/2024, Expires: Start: 03-08-2024 Plain chest X-ray XR chest 2V* [facility] Start: 02-18-2024 End: 02-18-2024 Professional / ancillary services management 02/18/2024 1:00 PM EDT Ancillary Procedure [facility] [address] [facility] [address] [place] [phone] [facility] Start: 02-17-2024 End: 02-09-2025 ECG 12 Lead ECG 12 Lead ECG Routine Paroxysmal atrial fibrillation (Multi) Expected: 02/17/2024 (Approximate), Expires: 02/09/2025 [facility] Service Area Work Phone: Comment on above: Expected: 02/17/2024 (Approximate), Expi res: 02/09/2025 Start: 02-10-2024 End: 02-09-2025 Aspartate aminotransferase [Enzymatic activity/volume] in Serum or Plasma by With P-5'-P Aspartate Aminotransferase Lab Routine Paroxysmal atrial fibrillation (Multi) High risk medication use Expected: 02/10/2024 (Approximate), Expires: 02/09/2025 [facility] Work Phone: Comment on above: Expected: 02/10/2024 (Approximate), Expi res: 02/09/2025 Start: 02-10-2024 End: 02-09-2025 Basic metabolic 2000 panel - Serum or Plasma Basic Metabolic Panel Lab Routine Paroxysmal atrial fibrillation (Multi) High risk medication use Expected: 02/10/2024 (Approximate), Expires: 02/09/2025 [facility] Work Phone: Comment on above: Expected: 02/10/2024 (Approximate), Expi res: 02/09/2025 Start: 02-10-2024 End: 02-09-2025 Thyrotropin [Units/volume] in Serum or Plasma Thyroid Stimulating Hormone Lab Routine Paroxysmal atrial fibrillation (Multi) High risk medication use Expected: 02/10/2024 (Approximate), Expires: 02/09/2025 [facility] Work Phone: Comment on above: Expected: 02/10/2024 (Approximate), Expi res: 02/09/2025 Start: 01-25-2024 COVID-19 Vaccine ( season) COVID-19 Vaccine ( season) [facility] Start: 01-25-2024 Influenza vaccination Influenza Vaccine (#1) [facility] Start: 01-23-2024 [facility] Start: 01-23-2024 Bacteria identified in Urine by Culture [facility] Start: 01-22-2024 Referral to clinical global compensation director [facility] Start: 01-22-2024 Referral to rehabilitation physician [facility] Start: 01-21-2024 FUV, Provider: Teo Al, Status: Pen, Time: 11:50 AM FUV, Provider: Teo Al, Status: Pen, Time: 11:50 AM [facility] 250 DO Work Phone: Start: 01-16-2024 Dilation of Coronary Artery, One Artery with Drug-eluting Intraluminal Device, Percutaneous Approach Dilation of Coronary Artery, One Artery with Drug-eluting Intraluminal Device, Percutaneous Approach [facility] Start: 01-16-2024 Fluoroscopy of Left Heart using Low Osmolar Contrast Fluoroscopy of Left Heart using Low Osmolar Contrast [facility] Start: 01-16-2024 Fluoroscopy of Multiple Coronary Arteries using Low Osmolar Contrast Fluoroscopy of Multiple Coronary Arteries using Low Osmolar Contrast [facility] Start: 01-16-2024 Measurement of Cardiac Sampling and Pressure, Left Heart, Percutaneous Approach Measurement of Cardiac Sampling and Pressure, Left Heart, Percutaneous Approach [facility] Start: 01-16-2024 Hospital admission [facility] Start: 01-16-2024 Referral to cardiac rehabilitation program [facility] Start: 01-16-2024 [facility] Start: 01-14-2024 [facility] Start: 04-08-2023 Bacteria identified in Urine by Culture [facility] Start: 12-10-2022 FUV, Provider: Teo Al, Status: Pen, Time: 10:10 AM FUV, Provider: Teo Al, Status: Pen, Time: 10:10 AM [facility] 250 DO Work Phone: Start: 07-24-2022 MR Abdomen WO and W contrast IV [facility] Start: 07-24-2022 MRI of abdomen with contrast MR abdomen wo/w con [facility] Start: 07-03-2022 [facility] Start: 07-02-2022 Fluoroscopy of Aorta and Bilateral Lower Extremity Arteries using Low Osmolar Contrast Fluoroscopy of Aorta and Bilateral Lower Extremity Arteries using Low Osmolar Contrast [facility] Start: 07-02-2022 Restriction of Abdominal Aorta with Intraluminal Device, Percutaneous Approach Restriction of Abdominal Aorta with Intraluminal Device, Percutaneous Approach [facility] Start: 05-22-2022 [facility] Start: 05-20-2022 Evaluation procedure [facility] Start: 05-19-2022 [facility] Start: 05-17-2022 End: 05-17-2022 [facility] Start: 05-16-2022 Referral to gold burnisher [facility] Start: 05-16-2022 Referral to vascular surgeon [facility] Start: 05-16-2022 Hospital admission [facility] Start: 11-30-2018 RSV High Risk: (Elderly (60+) or Population) (1 - 1-dose 75+ series) RSV High Risk: (Elderly (60+) or Population) (1 - 1-dose 75+ series) [facility] Start: 2003 RSV patients and/or patients aged 60+ years (1 - 1-dose 60+ series) RSV patients and/or patients aged 60+ years (1 - 1-dose 60+ series) [facility] Start: 11-30-1993 Zoster Vaccines (1 of 2) Zoster Vaccines (1 of 2) [facility] Start: 11-30-1965 DTaP/Tdap/Td Vaccines (1 - Tdap) DTaP/Tdap/Td Vaccines (1 - Tdap) [facility] Start: 11-30-1962 Urine screening for protein CKD: Urine Protein Screening [facility] Start: 11-30-1961 Diabetes mellitus screening Diabetes Screening [facility] Start: 1943 Creatinine measurement Creatinine Level [facility] Start: 1943 Lipid panel Lipid Panel [facility] Start: 1943 Medicare Annual Wellness Visit Medicare Annual Wellness Visit (AWV) [facility] Start: 1943 Potassium measurement Potassium Level [facility] Start: 1943 Thyroid stimulating hormone measurement TSH Level [facility] BLOOD CULTURE 1 BLOOD CULTURE 1 Lab Routine 04/28/2024 8:34 AM EST [facility] BLOOD CULTURE 2 BLOOD CULTURE 2 Lab Routine 04/28/2024 8:40 AM EST [facility] ECG 12 Lead ECG 12 Lead ECG Routine Paroxysmal atrial fibrillation (Multi) 02/24/2024 2:45 PM EDT [facility] Service Area Work Phone: Patient Education [facility] Work Phone: Patient referral [facility] Work Phone: Renal function 2000 panel - Serum or Plasma [facility] Renal function 1999 panel - Serum or Plasma [facility] US Thoracic and abdo arturo aorta [facility] XR Chest 2 Views [facility] Immunizations Immunization Date Immunization Notes Care Provider Markus brookety 03-19-2024 influenza virus vacc ine, unspecified formulation Katia JACOBS [facility] 03-19-2024 influenza, seasonal, injectable Generic Provider [facility] 03-19-2024 Pfizer Purple Cap SARS-CoV-2 Vaccination Generic Provider [facility] 05-28-2023 Pneumococcal Conjuga te PCV 20 Stanley Emerson MD Work Phone: [facility] 03-26-2023 Influenza, Seasonal, Quadrivalent, Adjuvanted Teo Al MD Work Phone: [facility] Work Phone: 03-26-2023 influenza virus vacc ine, unspecified formulation Teo Al MD Work Phone: [facility] 02-16-2023 SARS-COV-2 (COVID-19 ) vaccine, mRNA, spike protein, LNP, PF, valente-sucrose, 30 mcg/0.3 mL Stanley Emerson MD Work Phone: [facility] 05-20-2022 influenza, high dose seasonal, preservative-free Teo Al MD Work Phone: [facility] Work Phone: 03-29-2022 Moderna Bivalent Connell ster Vaccination Stanley Emerson MD Work Phone: [facility] 03-29-2022 Pfizer COVID-19 Vac Bivalent 30 MCG/0.3ML Intramuscular Suspension Stanley Emerson Work Phone: [facility] 03-16-2022 influenza virus vacc ine, unspecified formulation Katia JACOBS [facility] 03-16-2022 influenza, seasonal, injectable Stanley Emerson Work Phone: [place] [id number] DO Work Phone: 03-06-2022 Fluzone High-Dose Quadrivalent 0.7 ML Intramuscular Suspension Prefilled Syringe Stanley Emerson Work Phone: [place] [address] DO Work Phone: 03-06-2022 influenza virus vacc ine, unspecified formulation HEATHER JOSSELIN [facility] 10-03-2021 Comirnaty 30 MCG/0.3 ML Intramuscular Suspension Stanley Emerson Work Phone: [place] [address] DO Work Phone: 10-03-2021 COVID-19 mRNA, Taniya wright (Pfizer) MD Stanley Emerson Work Phone: [facility] 10-03-2021 SARS-CoV-2 mRNA (qdobyiznewe-ctau-hvyptv e) vaccine HEATHER OMALLEY [facility] 10-03-2021 SARS-CoV-2, Unspecified Jesus Emerson MD Work Phone: [facility] 04-23-2021 pneumococcal polysaccharide vaccine, 23 valent Stanley Emerson Work Phone: [facility] 02-22-2021 influenza virus vacc ine, unspecified formulation Katia JACOBS [facility] 02-22-2021 influenza, injectabl e, quadrivalent, preservative free Stanley Emerson Work Phone: [place] [address] DO Work Phone: 02-21-2021 Pfizer-BioNTech COVI D-19 Vacc 30 MCG/0.3ML Intramuscular Suspension Stanley Emerson Work Phone: [facility] Comment on above: Result Comment: 2022: [id number] 02-14-2021 influenza, high dose seasonal, preservative-free Teo Al MD Work Phone: [facility] Work Phone: 07-28-2020 Pfizer-BioNTech COVI D-19 Vacc 30 MCG/0.3ML Intramuscular Suspension Stanley Emerson Work Phone: [facility] 07-07-2020 Pfizer-BioNTech COVI D-19 Vacc 30 MCG/0.3ML Intramuscular Suspension Stanley Emerson Work Phone: [facility] 02-22-2020 influenza virus vacc ine, unspecified formulation HEATHER OMALLEY [facility] 02-22-2020 influenza, injectabl e, quadrivalent, preservative free Stanley Emerson MD Work Phone: [facility] 02-22-2020 Seasonal, quadrivale nt, recombinant, injectable influenza vaccine, preservative free Stanley Emerson Work Phone: [facility] 250 DO Work Phone: Payers Date Payer Category Payer Self-pay 2022 Medicare [id number] 2015 Medicare supplementa l policy (as second payer) [employer] MEDICARE SUPPLEMENT [id number] 2015 Private Health Insurance [id number] .[id number] 2010 Medicare [id number] 1959 Medicare [id number] 1959 Private Health Insurance [id number] 1943 Unknown [id number] 2.840.1.476865.3.579.2 .593 1943 Unknown [id number] 2.840.1.706758.3.579.2 .593 1943 Unknown [id number] .840.1.524183.3.579.2 .593 1943 Unknown [id number] 2.840.1.472870.3.579.2 .593 1943 Unknown [id number] 2.840.1.954120.3.579.2 .593 1943 Unknown [id number] 2.16840.1.728168.3.579.2 .593 1943 Unknown [id number] 2.16840.1.354654.3.579.2 .593 1943 Unknown [id number] 2.16840.1.597834.3.579.2 .593 1943 Unknown [id number] 2.16840.1.182473.3.579.2 .356 1943 Unknown [id number] 2.16.840.1.328035.3.579.2 .356 1943 Unknown [id number] 2.16.840.1.301638.3.579.2 .356 1943 Unknown [id number] 2.16.840.1.570371.3.579.2 .356 1943 Unknown [id number] 2.840.1.687501.3.579.2 .356 1943 Unknown [id number] 2.840.1.184126.3.579.2 .356 1943 Unknown [id number] .840.1.670704.3.579.2 .356 1943 Unknown [id number] 2.840.1.828473.3.579.2 .356 1943 Unknown [id number] .840.1.304912.3.579.2 .72 1943 Unknown [id number] 2.840.1.284363.3.579.2 .72 1943 Unknown [id number] .840.1.719713.3.579.2 .72 1943 Unknown [id number] .840.1.093876.3.579.2 .72 1943 Unknown [id number] .840.1.879402.3.579.2 .72 1943 Unknown [id number] .840.1.343314.3.579.2 .727 1943 Unknown [id number] .840.1.558736.3.579.2 .72 1943 Unknown [id number] 2.840.1.377353.3.579.2 .727 1943 Unknown [id number] .840.1.669881.3.579.2 .727 -194 Unknown [id number] 2.16.840.1.762390.3.579.2 .727 1943 Unknown [id number] 2.16.840.1.767399.3.579.2 .727 194 Unknown [id number] 2.16.840.1.704330.3.579.2 .72 1943 Unknown [id number] 2.16.840.1.990904.3.579.2 .727 1943 Unknown [id number] 2.16.840.1.086692.3.579.2 .72 1943 Unknown [id number] 2.16.840.1.440394.3.579.2 .727 1943 Unknown [id number] 2.840.1.614419.3.579.2 .72 1943 Unknown [id number] 2.840.1.028712.3.579.2 .727 1943 Unknown [id number] 2.840.1.070302.3.579.2 .1259 - Unknown [id number] 2.840.1.825150.3.579.2 .1259 -194 Unknown [id number] 2.840.1.161896.3.579.2 .1259 -194 Unknown [id number] 2.16840.1.520313.3.579.2 .1259 -1944 Unknown [id number] 2.16.840.1.639741.3.579.2 .1259 -194 Unknown [id number] 2.16840.1.251708.3.579.2 .1259 -1944 Unknown [id number] 2.16840.1.970308.3.579.2 .1259 Unknown [id number] 2..840.1.546893.3.579.2 .1259 1943 Unknown [id number] 2.840.1.948352.3.579.2 .1259 1943 Unknown [id number] 2..840.1.589409.3.579.2 .1244 1943 Unknown [id number] 2.840.1.024483.3.579.2 .1244 1943 Unknown [id number] 2.840.1.682373.3.579.2 .1244 1943 Unknown [id number] 2.840.1.183716.3.579.2 .727 1943 Unknown [id number] 2.840.1.551604.3.579.2 .72 1943 Unknown [id number] .0.1.149179.3.579.2 .727 Medicare Medicare Nonpatient [id number] Unknown Unknown [facility] [id number] Unknown [id number] 840.1.148973.3.579.2 .531 Unknown [id number] 840.1.290213.3.579.2 .531 Unknown [id number] .840.1.943262.3.579.2 .531 Unknown [id number] .840.1.937525.3.579.2 .531 Unknown [id number] .840.1.856757.3.579.2 .531 Unknown [id number] 2.840.1.634661.3.579.2 .531 Social History Date Type Detail Facility Start: 12-31-2023 End: 02-10-2024 Daily caffeine consumption Daily caffeine consumption [facility] 250 DO Work Phone: Comment on above: 3-4 cups coffee kellen y; 05/17/23 quit; 1/2 dozen cigarettes ; Start: 06-11-2022 End: 04-06-2024 Tobacco smoking status Heavy tobacco smoker (finding) [facility] Start: 12-31-2023 End: 02-10-2024 Sex Assigned At Male [facility] Start: 12-31-1965 End: 01-23-2024 Tobacco smoking status NHIS Smoker (finding) [facility] Start: 1945 Sex Assigned At Male F [facility] Start: 07-02-2022 End: 01-29-2024 Tobacco smoking status NHIS Ex-smoker (finding) [facility] Tobacco smoking status Never [facility] Start: 12-31-1965 History of tobacco use Cigarette Smo ker [facility] Work Phone: Start: 01-29-2024 End: 02-10-2024 Tobacco use and exposure Smokeless tobacco non-user [facility] Work Phone: Start: 02-24-2024 End: 05-29-2024 Alcoholic beverage intake Lifetime non-drinker (finding) [facility] Work Phone: Start: 1945 [facility] assigned [facility]: Start: 01-31-2024 End: 05-21-2024 Exposure to SARS-CoV-2 (event) Not sure [facility] Within the last year , have [...] aortic aneurysm (AAA) Abdominal aorta endovascular stent-graft ()[id number] FDA Start: 07-02-2022 Percutaneous endovascular repair of abdominal aortic aneurysm (AAA) Abdominal aorta endovascular stent-graft ()[id number] FDA Start: 07-02-2022 Percutaneous endovascular repair of abdominal aortic aneurysm (AAA) Abdominal aorta endovascular stent-graft ()[id number] FDA Start: 07-02-2022 Percutaneous endovascular repair of abdominal aortic aneurysm (AAA) Soft-tissue/mesh anchor, non-bioabsorbable ()[id number] FDA Start: 07-02-2022 CL STENT JERZY FRONTIER 3.0 X 38 FDA Start: 01-16-2024 CL STENT JERZY FRONTIER 3.0 X 38 FDA Start: 01-16-2024 CL STENT JERZY FRONTIER 3.0 X 38 FDA Start: 01-16-2024 CL STENT JERZY FRONTIER 3.0 X 38 FDA Start: 01-16-2024 Goals Date Patient Goal Desired Activity /State Functional Status Date Assessment Result Facility 04-06-2024 Functional Status N/A [facility] 01-23-2024 Functional status Patient at Baseline [facility] Work Phone: 10-03-2023 Functional Status N/A [facility] 06-30-2023 Functional Status N/A [facility] 06-10-2023 Functional Status N/A [facility] 03-11-2023 Functional Status N/A [facility] 12-10-2022 Functional Status N/A [facility] 09-18-2022 Functional Status N/A [facility] 07-31-2022 Functional Status N/A [facility] 07-03-2022 Functional status Patient at Baseline [facility] Work Phone: 06-11-2022 Functional Status N/A [facility] 05-16-2022 Functional status Patient Not at Baseline [facility] Work Phone: Mental Status Date Assessment Result Facility 01-23-2024 Cognitive function Cognitive Sta tus Patient is Progressing Toward Baseline [facility] Work Phone: 07-03-2022 Cognitive function Cognitive Sta tus Patient at Baseline [facility] Work Phone: 05-16-2022 Cognitive function Cognitive Sta tus Patient at Baseline [facility] Work Phone: Clinical Notes 06-04-2022 to 06-07-2024 Teo Al MD - 05/21/2024 10:00 AM ESTPatient InstructionsAttachmentsStanley Emerson MD - 05/13/2024 2:30 PM Phyllis Emerson MD - 05/10/2024 11:00 AM ESTPatient InstructionsAttachments Note Date & Type Note Facility 06-07-2024 Note Patient Education Urology Hematuria, Adult Hematuria is blood in the urine. Blood may be visible in the urine, or it may be identified with a test. This condition can be caused by infections of the bladder, urethra, kidney, or prostate. Other possible causes include: ??? Kidney stones. ??? Cancer of the urinary tract. ??? Too much calcium in the urine. ??? Conditions that are passed from parent to child (inherited conditions). ??? Exercise that requires a lot of energy. Infections can usually be treated with medicine, and a kidney stone usually will pass through your urine. If neither of these is the cause of your hematuria, more tests may be needed to identify the cause of your symptoms. It is very important to tell your health care provider about any blood in your urine, even if it is painless or the blood stops without treatment. Blood in the urine, when it happens and then stops and then happens again, can be a symptom of a very serious condition, including cancer. There is no pain in the initial stages of many urinary cancers. Follow these instructions at home: Medicines ??? Take juwt-gcw-vshlgni and prescription medicines only as told by your health care provider. ??? If you were prescribed an antibiotic medicine, take it as told by your health care provider. Do not stop taking the antibiotic even if you start to feel better. Eating and drinking ??? Drink enough fluid to keep your urine pale yellow. It is recommended that you drink 3?4 quarts (2.8?3.8 L) a day. If you have been diagnosed with an infection, drinking cranberry juice in addition to large amounts of water is recommended. ??? Avoid caffeine, tea, and carbonated beverages. These tend to irritate the bladder. ??? Avoid alcohol because it may irritate the prostate (in males). General instructions ??? If you have been diagnosed with a kidney stone, follow your health care provider's instructions about straining your urine to catch the stone. ??? Empty your bladder often. Avoid holding urine for long periods of time. ??? If you are female: ? After a bowel movement, wipe from front to back and use each piece of toilet paper only once. ? Empty your bladder before and after sex. ??? Pay attention to any changes in your symptoms. Tell your health care provider about any changes or any new symptoms. ??? It is up to you to get the results of any tests. Ask your health care provider, or the department that is doing the test, when your results will be ready. ??? Keep all follow-up visits. This is important. Contact a health care provider if: ??? You develop back pain. ??? You have a fever or chills. ??? You have nausea or vomiting. ??? Your symptoms do not improve after 3 days. ??? Your symptoms get worse. Get help right away if: ??? You develop severe vomiting and are unable to take medicine without vomiting. ??? You develop severe pain in your back or abdomen even though you are taking medicine. ??? You pass a large amount of blood in your urine. ??? You pass blood clots in your urine. ??? You feel very weak or like you might faint. ??? You faint. Summary ??? Hematuria is blood in the urine. It has many possible causes. ??? It is very important that you tell your health care provider about any blood in your urine, even if it is painless or the blood stops without treatment. ??? Take aeoo-fyh-dolzzyq and prescription medicines only as told by your health care provider. ??? Drink enough fluid to keep your urine pale yellow. This information is not intended to replace advice given to you by your health care provider. Make sure you discuss any questions you have with your health care provider. Document Revised: 01/10/2021 Document Reviewed: 01/10/2021 [employer] Patient Education ? 2023 [employer]. [facility] 05-21-2024 History of Present illness Narrative Subjective Alex Anderson is a 78 y.o. male Chief Complaint Follow-up HPI Patient is in the office for follow-up for the problems noted below. He came with his daughter and his . He is currently taking warfarin managed by the Coumadin clinic for his atrial fibrillation. He is on amiodarone and EKG today confirmed normal sinus rhythm and normal intervals. His memory is off-and-on as a family described. They are considering consultation at the [facility] for large colonic polyp that might need surgical resection. There has been no indication of recurrent angina pectoris or breakthrough atrial fibrillation and no bleeding complications and no symptoms of heart failure. His kidney function at the present time is not known to me and he continue to follow with nephrology. Amiodarone testing has not yet been initiated. Examination was unremarkable Assessment/recommendations: 1-history of non-ST elevation myocardial infarction leading to LAD stenting December 2023 at [facility], continue Plavix, high intensity statin, patient is not on aspirin since he is also on Coumadin 2-post [place] paroxysmal atrial fibrillation, currently back in sinus rhythm spontaneously on amiodarone and Coumadin, to be monitored 3- ischemic cardiomyopathy, systolic heart failure stage C functional class II NYHA CHF, GDMT could not be initiated due to hypotension in the past, his blood pressure today is reasonable. Will start metoprolol succinate 25 mg daily with the plan to add RAAS inhibition if his kidney function allows down the road. 5- status post AAA stenting with EVAR 2022 with no complications. 6- chronic kidney disease stage III. Patient's follows with nephrology, basic metabolic profile is ordered 7-hyperlipidemia on maximal dose atorvastatin 8- history of TIA, no recurrences 9- slight overweight, encouragement provided for prudent diet and daily activities 10-colon polyp large enough to require surgery, he is following for that at the [facility]. 11- history of bladder cancer followed by urology in remission 12-high risk medication with warfarin and amiodarone to be monitored closely Review of Systems All other systems reviewed and are negative. Vitals: 05/21/24 0947 BP: 106/70 BP Location: Left arm Patient Position: Sitting Pulse: 80 Weight: 93.9 kg (207 lb) Height: 1.88 m (6' 2 ) Objective Physical Exam Constitutional: Appearance: Normal appearance. HENT: Nose: Nose normal. Neck: Vascular: No carotid bruit. Cardiovascular: Rate and Rhythm: Normal rate. Pulses: Normal pulses. Heart sounds: Normal heart sounds. Pulmonary: Effort: Pulmonary effort is normal. Abdominal: General: Bowel sounds are normal. Palpations: Abdomen is soft. Musculoskeletal: General: Normal range of motion. Cervical back: Normal range of motion. Right lower leg: No edema. Left lower leg: No edema. Skin: General: Skin is warm and dry. Neurological: General: No focal deficit present. Mental Status: He is alert. Psychiatric: Mood and Affect: Mood normal. Behavior: Behavior normal. Thought Content: Thought content normal. Judgment: Judgment normal. Allergies Patient has no known allergies. Current Medications Current Outpatient Medications: albuterol 90 mcg/actuation inhaler, Inhale 2 puffs every 4 hours if needed., Disp: , Rfl: amiodarone (Pacerone) 200 mg tablet, Take 1 tablet (200 mg) by mouth once daily., Disp: 90 tablet, Rfl: 1 atorvastatin (Lipitor) 80 mg tablet, Take 1 tablet (80 mg) by mouth once daily., Disp: , Rfl: clopidogrel (Plavix) 75 mg tablet, Patient will take 4 tablets ( 300mg) one time only, then will take one tablet daily, Disp: 90 tablet, Rfl: 3 ferrous sulfate, 325 mg ferrous sulfate, tablet, Take 1 tablet (325 mg) by mouth once daily with breakfast., Disp: , Rfl: furosemide (Lasix) 40 mg tablet, Take 1 tablet (40 mg) by mouth once daily., Disp: , Rfl: multivitamin (Multiple Vitamins) tablet, Take 1 tablet by mouth once daily., Disp: , Rfl: nitroglycerin (Nitrostat) 0.4 mg SL tablet, Place 1 tablet (0.4 mg) under the tongue every 5 minutes if needed for chest pain., Disp: , Rfl: potassium chloride CR (Klor-Con M20) 20 mEq ER tablet, Take 1 tablet (20 mEq) by mouth once daily. Do not crush or chew., Disp: 90 tablet, Rfl: 3 warfarin (Coumadin) 5 mg tablet, Take one tablet daily in the evening. Follow with [facility]. Patient will take coumadin and eliquis together for 3 days only, Disp: 14 tablet, Rfl: 0 metoprolol succinate XL (Toprol-XL) 25 mg 24 hr tablet, Take 1 tablet (25 mg) by mouth once daily. Do not crush or chew., Disp: 90 tablet, Rfl: 3 Assessment/Plan 1. Paroxysmal atrial fibrillation (Multi) Follow Up In Cardiology ECG 12 Lead Aspartate Aminotransferase Basic Metabolic Panel Thyroid Stimulating Hormone XR chest 2 views Complete Pulmonary Function Test (Spirometry/DLCO/Lung Volumes) Alanine Aminotransferase Aspartate Aminotransferase Alanine Aminotransferase Basic Metabolic Panel CBC Thyroid Stimulating Hormone Aspartate Aminotransferase Basic Metabolic Panel Thyroid Stimulating Hormone Alanine Aminotransferase Aspartate Aminotransferase Alanine Aminotransferase Basic Metabolic Panel CBC Thyroid Stimulating Hormone 2. High risk medication use Aspartate Aminotransferase Basic Metabolic Panel Thyroid Stimulating Hormone XR chest 2 views Complete Pulmonary Function Test (Spirometry/DLCO/Lung Volumes) Alanine Aminotransferase Aspartate Aminotransferase Alanine Aminotransferase Basic Metabolic Panel CBC Thyroid Stimulating Hormone Aspartate Aminotransferase Basic Metabolic Panel Thyroid Stimulating Hormone Alanine Aminotransferase Aspartate Aminotransferase Alanine Aminotransferase Basic Metabolic Panel CBC Thyroid Stimulating Hormone 3. Coronary artery disease involving [place] coronary artery of [place] heart without angina pectoris 4. S/P PTCA (percutaneous transluminal coronary angioplasty) 5. ST elevation myocardial infarction (STEMI), unspecified artery (Multi) 6. Cardiomyopathy, ischemic Follow Up In Cardiology metoprolol succinate XL (Toprol-XL) 25 mg 24 hr tablet 7. Essential hypertension 8. Dyslipidemia Lipid Panel Lipid Panel 9. Abdominal aortic aneurysm (AAA) greater than 5.5 cm in diameter in male (CMS-HCC) 10. Transient cerebral ischemia, unspecified type 11. Stage 3a chronic kidney disease (Multi) 12. BMI 26.0-26.9,adult 13. Former smoker Scribe Attestation By signing my name below, I, Pebbles Fanny MORENO , Scribe attest that this documentation has been prepared under the direction and in the presence of Teo Al MD. Provider Attestation - Scribe documentation All medical record entries made by the Scribe were at my direction and personally dictated by me. I have reviewed the chart and agree that the record accurately reflects my personal performance of the history, physical exam, discussion and plan. documented in this encounter [facility] Work Phone: 05-21-2024 Instructions Pebbles Arcos LPN - 05/21/2024 10:00 AM EST Please bring all medicines, vitamins, and herbal supplements with you when you come to the office. Prescriptions will not be filled unless you are compliant with your follow up appointments or have a follow up appointment scheduled as per instruction of your physician. Refills should be requested at the time of your visit. BMI was above normal measurement. Current weight: 93.9 kg (207 lb) Weight change since last visit (-) denotes wt loss 2 lbs Weight loss needed to achieve BMI 25: 12.7 Lbs Weight loss needed to achieve BMI 30: -26.2 Lbs Provided instructions on dietary changes Provided instructions on exercise. Amiodarone follow up per routine The following attachments cannot be sent through Care Everywhere.Heart Healthy Diet (Moroccan)documented in this encounter [facility] Work Phone: 05-13-2024 History of Present illness Narrative Images from the original note were not included. Subjective : Chief Complaint: Alex Anderson is an 78 y.o. male here for an annual wellness visit. I have reviewed and reconciled the history and medication list with the patient today. Current Outpatient Medications Medication Sig Dispense Refill albuterol HFA 90 mcg/act inhaler Inhale 2 puffs every 6 (six) hours if needed for wheezing 54 g 1 amiodarone (Pacerone) 200 MG tablet Take 200 mg by mouth Daily atorvastatin (Lipitor) 80 MG tablet Take 80 mg by mouth at bedtime clopidogrel (Plavix) 75 MG tablet Take 75 mg by mouth Daily ferrous sulfate 325 (65 Fe) MG tablet [...] needed (sob and cough) 1 each 0 warfarin (Coumadin) 2 MG tablet Take 2 mg by mouth every other day Alternating with 4 mg warfarin (Coumadin) 2 MG tablet Take 4 mg by mouth every other day Alternating with 2 mg No current facility-administered medications for this visit. Review of Systems Unremarkable except as noted List of current healthcare providers: Patient Care Team: Stanley Emerson MD as PCP - General (Family Medicine) Stanley Emerson MD as PCP - ACO Samy Santiago LPN as Licensed Practical Nurse (Family Medicine) [facility] Medicare Annual Visit Over the past 2 weeks, how often have you been bothered by any of the following problems? Little interest or pleasure in doing things: Not at all Feeling down, depressed, or hopeless: Not at all Patient Health Questionnaire-2 Score: 0 Over the past 2 weeks, how often have you been bothered by any of the following problems? Trouble falling or staying asleep, or sleeping too much: Several days Feeling tired or having little energy: More than half the days Poor appetite or overeating: Not at all Feeling bad about yourself - or that you are a failure or have let yourself or your family down: Not at all Trouble concentrating on things, such as reading the newspaper or watching television: Not at all Moving or speaking so slowly that other people could have noticed? Or the opposite - being so fidgety or restless that you have been moving around a lot more than usual.: Not at all Thoughts that you would be better off or hurting yourself in some way: Not at all Patient Health Questionnaire-9 Score: 3 Health Risk Assessment Form Do you need help eating, bathing, using the toilet, dressing, or getting around your home?: No Can you prepare your own meals?: No Can you do your own housework without help?: No Can you shop for groceries or clothes without help?: No Do you exercise for about 20 minutes 3 or more days a week?: Yes How confident are you that you can control and manage most of your health problems?: Very confident Can you mange your money, credit cards and accounts, pay bills and taxes?: No Vision Screening: Yes, patient was advised to have yearly eye exam 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 Physical Exam The patient is pleasant and in no acute distress The patient does not appear to have a gross neurologic deficit. The patient has good eye contact and clear speech Assessment/Plan : The following health maintenance schedule was reviewed with the patient and provided in printed form in the after visit summary: Health Maintenance Topic Date Due Influenza Vaccine Completed Pneumococcal Vaccine: 65+ Years Completed 1. Encounter for Medicare annual wellness exam (Primary) The patient is here for their Annual Medicare Wellness visit. Demographics were updated. Self-assessment was completed and reviewed. Past medical, family, and social history were updated. The medication list updated and reviewed by the doctor. A list of other current medical providers is established and updated. Time was spent discussing health maintenance issues, ordering testing as appropriate, and a schedule was reviewed regarding recommended screening. We discussed safety issues and fall risk. Depression screening was completed and addressed as appropriate. Fall screening was completed and addressed. Cognitive function was assessed by direct observation, cognitive screening as indicated, and assessment of ability to perform ADL's. The BMI and discussed. Major risk factors for chronic disease including family history were discussed. An after visit summary is made available to the patient 2. Advance directive discussed with patient Patient voluntarily agreed to discuss advance care planning at today's wellness visit. We discussed that an advance directive is a legal document that only goes into effect if the patient is incapacitated and unable to speak for themselves. This would help us to decide what care the patient would want. We discussed emergency treatments to keep the patient alive such as CPR, ventilator use and concept of comfort. We discussed how patients could make their wishes known through a living will, durable power of civil attorney for healthcare, or other advanced directives. We discussed telling diaz people about their advance and a copy will be kept in the EHR. I discussed that they should also make me an emergency contact in their cell phone, and/or notify their POA that I have a copy of the advanced directives. 3. Encounter for screening for other disorder Clinically insignificant depression screening 4. Screening for alcohol problem Negative alcohol screening 5. Former smoker Encouraged continued nonsmoking 6. Overweight Electronically signed by Stanley Emerson MD on May 29, 2024 documented in this encounter [facility] 05-10-2024 History of Present illness Narrative Images from the original note [...] follow through with treatment plans established today. He does have significant hearing loss in his declined using hearing aids or other hearing interpretation. If I keep my voice very raised he can hear it. Mostly reads his 's lips though. Hypertension Patient is here for follow-up of elevated blood pressure. He is not exercising and is not adherent to a low-salt diet. Blood pressure is well controlled at home. Cardiac symptoms: none. Patient denies chest pain and irregular heart beat. Cardiovascular risk factors: advanced age (older than 55 for men, 65 for women), dyslipidemia, hypertension, male gender, sedentary lifestyle, and smoking/ tobacco exposure. Use of agents associated with hypertension: none. History of target organ damage: angina/ prior myocardial infarction and prior coronary revascularization. Hyperlipidemia Pt who presents for follow-up of dyslipidemia. A repeat fasting lipid profile was done. The patient does not use medications that may worsen dyslipidemias (corticosteroids, progestins, anabolic steroids, diuretics, beta-blockers, amiodarone, cyclosporine, olanzapine). Exercise: never. COPD He/She presents for evaluation and treatment of COPD. The patient is not currently have symptoms / an exacerbation. The patient has COPD for approximately Several years. Symptoms in previous episodes have included dyspnea with activity, and typically last until rests. Previous episodes have been exacerbated by exposure to cold air. Current treatment includes Rescue medications as needed, which generally provides some relief of symptoms. Patient currently is not on home oxygen therapy.. The patient is having no constitutional symptoms, denying fever, chills, anorexia, or weight loss. The patient has been hospitalized for this condition before. He has remained smoke free for up to several years. The patient is experiencing exercise intolerance (has issues with physical exercise). Review of Systems Constitutional: Negative for activity change and fatigue. Respiratory: Negative for cough, shortness of breath and wheezing. Cardiovascular: Negative for chest pain, palpitations and leg swelling. Neurological: Negative for light-headedness and headaches. Objective The patient is pleasant and in no acute distress. The neck is supple and trachea is midline. No masses are appreciated. The heart is regular rate and rhythm without S3, S4. No murmur. The patient has prolonged expiratory respiratory pattern. The breath sounds are diffusely decreased but symmetrical without evidence of rhonchi or rales. No wheezing. The skin is warm and dry. The lower extremities have trace edema. The patient has good eye contact and speech is clear. Appropriate affect. Visit Vitals Smoking Status Former No Known Allergies Current Outpatient Medications on File Prior to Visit Medication Sig Dispense Refill albuterol HFA 90 mcg/act inhaler Inhale 2 puffs every 6 (six) hours if needed for wheezing 54 g 1 amiodarone (Pacerone) 200 MG tablet Take 200 mg by mouth Daily atorvastatin (Lipitor) 80 MG tablet Take 80 mg by mouth at bedtime cephalexin (Keflex) 500 MG capsule Take 500 mg by mouth in the morning and 500 mg in the evening and 500 mg before bedtime. clopidogrel (Plavix) 75 MG tablet Take 75 mg by mouth Daily ferrous sulfate 325 (65 Fe) MG tablet [...] Spacer/Aero-Holding Chambers device every 8 (eight) hours. warfarin (Coumadin) 2 MG tablet Take 2 mg by mouth every other day Alternating with 4 mg warfarin (Coumadin) 2 MG tablet Take 4 mg by mouth every other day Alternating with 2 mg No current facility-administered medications on file prior to visit. 1. Essential hypertension, benign (CMS/HCC) Chronic problem, stable, to goal. He has been in and out of the hospital and multiple doctor offices. He has no need for prescription refill today. 2. Hypertensive nephropathy (CMS/HCC) Asymptomatic. Working with Urology for the lower tract symptoms. Indwelling catheter. Continue to monitor longitudinally. 3. Stage 3a chronic kidney disease (HCC) (CMS/HCC) Chronic problem that defines the hypertensive nephropathy. Continue to monitor longitudinally. He notes he does have upcoming labs ordered. 4. Microalbuminuria Chronic problem, defining an aspect the nephropathy, with significant risk, uncertain progression requiring longitudinal monitoring, and moderate decision making. Microalbuminuria describes a moderate increase in the level of urine albumin. Normally, the kidneys filter albumin, so if the kidney leaks small amounts of albumin into the urine then it is a indicator of chronic kidney disease. Microalbuminuria is an independent indicator of increased cardiovascular risk among individuals and therefore can be used for risk stratification for cardiovascular disease. 5. Panlobular emphysema (CMS/HCC) Chronic problem, stable, the patient is functioning at his usual level. Continue to monitor longitudinally. 6. Simple chronic bronchitis (CMS/HCC) Chronic problem, stable, the patient is functioning at his usual level. Continue to monitor longitudinally. Patient does not need refill of the albuterol. 7. Mixed dyslipidemia (CMS/HCC) Chronic problem that is comanaged with Cardiology. 8. Polypharmacy Chronic problem The patient meets the criteria for polypharmacy; 5 or more prescriptions or multi-morbidity defined as 5 or more diagnoses. Polypharmacy can significantly increase the risk of preventable adverse drug events and negatively impact adherence. Consideration of diverse factors such as clinician agreement, patient perspective, and de-prescribing, as appropriate can improve patient outcomes while simplifying care. This requires longitudinal monitoring as there is at least a moderate risk of morbidity and requires at least a moderate degree of evaluation and management. 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 Former smoker Continue to encourage his stopped smoking. 11. Overweight Continue to encourage good nutrition. documented in this encounter [facility] 04-06-2024 Hospital Discharge instructions Patient Education 04/06/2024 11:31:42 Indwelling Urinary [...] provider. Document Revised: 08/01/2021 Document Reviewed: 04/27/2021 [employer] Patient Education 2021 [employer]. 04/06/2024 11:28:52 Cancer Screening for Males Cancer [...] if anything looks unusual. Males with a ornlse-gqwh-itfzso risk for skin cancer may want to see a skin tanner (automatic folder seamer) for an annual body check. Where to find more information [place] [employer]: cancer.org Centers for Disease Control and Prevention: cdc.gov National Cancer [place]: cancer.gov Contact a health care provider if: [...] provider. Document Revised: 05/20/2023 Document Reviewed: 12/02/2022 Elsevier Patient Education 2023 [employer]. Follow Up Care 02/25/2024 15:13:08 With:ARLENE CASILLAS, Katia Hall, URL Address: [facility] [address] , [place] [address]- When: Unknown [facility] 04-06-2024 Note Patient Education Oncology Cancer Screening [...] if anything looks unusual. Males with a oopfem-hvpb-xbxjcy risk for skin cancer may want to see a skin tanner (dermatologi (more content not included)... [facility] 03-18-2024 History of Present illness Narrative Images from the original note [...] evaluation or treatment. documented in this encounter [facility] 02-24-2024 History of Present illness Narrative Patient here for EKG visit ordered by Dr. lA due to Parox. A-Fib. Dr. Castro in [...] (6' 2 ) documented in this encounter [facility] Work Phone: 02-17-2024 History of Present illness Narrative Images from the original note [...] each; Refill: 0 documented in this encounter [facility] 02-10-2024 History of Present illness Narrative Subjective Alex Anderson is a 78 y.o. male Chief Complaint Hospital Follow-up HPI 78-year-old white male who recent underwent LAD stenting for anterior STEMI at [facility] by Dr. Pruett. He subsequently developed atrial fibrillation requiring initiation of Eliquis and amiodarone. He was significantly hypotensive after the coronary intervention which prevented from initiation of GDMT for systolic heart failure. His EF was down to 35%. He has mild cognitive impairment. He does have history of bladder cancer followed by urology. Recently after discharge he saw nephrology and was having lower extremity edema for which Lasix was initiated and improved his edema significantly. No base metabolic profile was ordered. He currently has home health care and later on will be advised to get cardiac rehab. EKG today revealed normal sinus rhythm indicating spontaneous conversion but his QTc interval is over 500 ms and because of that the amiodarone dose will be down to 200 mg daily. His lungs sounded clear his card examination was unremarkable. Assessment/recommendations: 1-non-ST elevation myocardial infarction leading to LAD stenting December 2023 at [facility], continue Brilinta, high intensity statin, patient is not on aspirin since he is also on Eliquis 2-post IN paroxysmal atrial fibrillation, currently back in sinus rhythm spontaneously on amiodarone with prolonged QT interval. Will reduce amiodarone down to 200 mg daily and repeat EKG next week. Continue Eliquis at reduced dose of 2.5 mg twice daily 3-significant hypotension due to recent myocardial infarction. This is not allowing us to proceed with GDMT therapy for heart failure 4-ischemic cardiomyopathy, systolic heart failure stage C functional class IIb NYHA IV CHF, GDMT could not be initiated due to hypotension. 5- status post AAA stenting with EVAR 2022 with no complications. 6- chronic kidney disease stage III. Patient's follows with nephrology, basic metabolic profile is ordered 7-hyperlipidemia on maximal dose atorvastatin 8- history of TIA, no recurrences 9- slight overweight, encouragement provided for prudent diet and daily activities 10-QT prolongation due to amiodarone therapy. The dose was reduced and EKG is scheduled next week 11- history of bladder cancer followed by urology in remission 12-high risk medication with Eliquis and amiodarone to be monitored closely Review of Systems Respiratory: Positive for shortness of breath. Assessment/recommendations: 1 status post AAA stenting with EVAR 2022 with no complications. 2 chronic kidney disease stage III. Patient's follows with nephrology 3 hypertension, currently under control he is only on metoprolol. 4 hyperlipidemia on simvastatin, lipid profile is ordered 5 history of TIA on statin patient was advised to go back and take baby aspirin. 6 lifelong history of tobacco abuse, even though the patient quit smoking for 3 months he went back to smoking. Education was provided to quit smoking for good. 7 slight overweight, encouragement provided for prudent diet and daily activities 8 history of bladder cancer followed by urology in remission Vitals: 02/10/24 0913 BP: 102/68 BP Location: Left arm Patient Position: Sitting Pulse: 79 Weight: 93 kg (205 lb) Height: 1.88 m (6' 2 ) EKG done in office today Objective Physical Exam Constitutional: Appearance: Normal appearance. HENT: Nose: Nose normal. Neck: Vascular: No carotid bruit. Cardiovascular: Rate and Rhythm: Normal rate. Pulses: Normal pulses. Heart sounds: Normal heart sounds. Pulmonary: Effort: Pulmonary effort is normal. Abdominal: General: Bowel sounds are normal. Palpations: Abdomen is soft. Musculoskeletal: General: Normal range of motion. Cervical back: Normal range of motion. Right lower leg: No edema. Left lower leg: No edema. Comments: Trace edema present Skin: General: Skin is warm and dry. Neurological: General: No focal deficit present. Mental Status: He is alert. Psychiatric: Mood and Affect: Mood normal. Behavior: Behavior normal. Thought Content: Thought content normal. Judgment: Judgment normal. Allergies Patient has no known allergies. Current Medications Current Outpatient Medications: albuterol 90 mcg/actuation inhaler, Inhale 2 puffs every 4 hours if needed., Disp: , Rfl: amiodarone (Pacerone) 200 mg tablet, Take by mouth 2 times a day., Disp: , Rfl: apixaban (Eliquis) 2.5 mg tablet, Take 1 tablet (2.5 mg) by mouth 2 times a day., Disp: , Rfl: atorvastatin (Lipitor) 80 mg tablet, Take 1 tablet (80 mg) by mouth once daily., Disp: , Rfl: ferrous sulfate, 325 mg ferrous sulfate, tablet, Take 1 tablet (325 mg) by mouth once daily with breakfast., Disp: , Rfl: furosemide (Lasix) 40 mg tablet, Take 1 tablet (40 mg) by mouth once daily., Disp: , Rfl: multivitamin (Multiple Vitamins) tablet, Take 1 tablet by mouth once daily., Disp: , Rfl: nitroglycerin (Nitrostat) 0.4 mg SL tablet, Place 1 tablet (0.4 mg) under the tongue every 5 minutes if needed for chest pain., Disp: , Rfl: ticagrelor (Brilinta) 90 mg tablet, Take 1 tablet (90 mg) by mouth 2 times a day., Disp: , Rfl: Assessment/Plan 1. Paroxysmal atrial fibrillation (Multi) 2. High risk medication use 3. Coronary artery disease involving [place] coronary artery of [place] heart without angina pectoris 4. S/P PTCA (percutaneous transluminal coronary angioplasty) 5. Essential hypertension 6. Dyslipidemia 7. Stage 3a chronic kidney disease (Multi) 8. Transient cerebral ischemia, unspecified type 9. BMI 26.0-26.9,adult 10. Former smoker Scribe Attestation By signing my name below, I, Pebbles Escobedo LPN , Scribe attest that this documentation has been prepared under the direction and in the presence of Teo Al MD. Provider Attestation - Scribe documentation All medical record entries made by the Scribe were at my direction and personally dictated by me. I have reviewed the chart and agree that the record accurately reflects my personal performance of the history, physical exam, discussion and plan. documented in this encounter [facility] Work Phone: 02-10-2024 Instructions Pebbles Arcos LPN - 02/10/2024 9:20 AM EDT Please bring all medicines, vitamins, and herbal supplements with you when you come to the office. Prescriptions will not be filled unless you are compliant with your follow up appointments or have a follow up appointment scheduled as per instruction of your physician. Refills should be requested at the time of your visit. EKG done in office today Amiodarone follow up per routine BMI was above normal measurement. Current weight: 93 kg (205 lb) Weight change since last visit (-) denotes wt loss -8 lbs Weight loss needed to achieve BMI 25: 10.7 Lbs Weight loss needed to achieve BMI 30: -28.2 Lbs Provided instructions on dietary changes. The following attachments cannot be sent through Care Everywhere.Heart Healthy Diet (Moroccan)documented in this encounter [facility] Work Phone: 01-23-2024 Consult note Note Date/Time January 23, 2024 12:29pm [facility] [address] [place] [address] Physiatry (Rehab) Consult Note Signed Patient: Alex Anderson MR#: [id number] : 1945 Acct:[id number] Age/Sex: 78 / M Adm Date: 4 Loc: Room: [address] [place] [address] Type: ADM IN Attending Dr: Nas Pruett [...] post mid LAD stenting for ST elevation IN (01/15) course complicated by hypotension, atrial fibrillation, [...] Appearance Clear Urine pH 5.5 Ur Specific [place] 1.022 Urine Protein Trace H Urine Glucose [...] post mid LAD stenting for ST elevation IN (01/15) course complicated by hypotension, atrial fibrillation, [...] would recommend SNF closer to home in [place]. I understand this may be a discrepancy [...] chart, including current orders, allied health and nutrition consultant notes, labs/imaging and performed diaz elements of exam and I formulated the plan of care and facilitated the medical decision making. I completed a substantive portion of this encounter, the medical decision making portion of this note in its entirety, including Allied health note review, nursing note review, nutrition consultant note review, discussion with nursing and case management, and more than 50% of my time was spent on counseling and coordination of care, time spent 40 minutes Documented By: Rogelio Rai MD 01/23/24 1208 Signed By: <Electronically signed by Rogelio Rai MD> 01/23/24 8187 [facility] Work Phone: 1(195) 522-603108-30-2024 Progress note Author Isaac Edwards [facility] January 23, 2024 12:01pm Note Date/Time January 23, 2024 11 :59am [facility] [address] [place] [address] Progress Note Signed Patient: Alex Anderson MR#: [id number] : 1945 Acct:[id number] Age/Sex: 78 / M Adm Date: 4 Loc: Room: [address] [place] [address] Type: ADM IN Attending Dr: Nas Pruett [...] signed by MD Isaac Edwards> 01/23/24 1203 [facility] Work Phone: 1(375) 579-147108-30-2024 Consult note Author Rob Almazan [facility] January 23, 2024 3:21pm Note Date/Time January 23, 2024 8: 34am [facility] [address] [place] [address] Hospitalist Consult Note Signed Patient: Alex Anderson MR#: [id number] : 1945 Acct:[id number] Age/Sex: 78 / M Adm Date: 4 Loc: Room: [address] [place] [address] Type: ADM IN Attending Dr: Nas Pruett [...] that which is noted above in HPI [facility] Medical History Villarreal catheter in place BPH (benign prostatic hyperplasia) Bladder cancer removed Difficulty swallowing pills COVID-19 history 01/14 Problem List clean-up per request of Phys. EHR Cmte COPD (chronic obstructive pulmonary disease) Osteoarthritis Kidney failure stage 1 Hyperlipidemia Obstructive uropathy Vitamin B 12 deficiency Problem List clean-up per request of Phys. EHR Cmte Folic acid deficiency ing Tobacco abuse quit april of 2023 Problem [...] Son Family history of mental disorder [facility] Problem: Diagnosed with Mental Illness Social History [...] 09:00 01/22/24 08:49 Ferrous Sulfate 324 Mg Tablet. PO 01/16/25 08:59 324 mg DAILY BEKAH [...] % (Auto) 64.3, Lymph % (Auto) 15.6, [place] % (Auto) 16.0, Eos % (Auto) 3.6, Baso % (Auto) 0.5, Nucleat RBC Rel Count 0.1, Neut # (Auto) 5.7, Lymph # (Auto) 1.4, [place] # (Auto) 1.4 H, Eos # (Auto) [...] Code Documented By: Rob Almazan MD [id number] Signed By: <Electronically signed by Rob Almazan MD> 01/23/24 1521 [facility] Work Phone: 1(630) 731-889608-30-2024 Progress note Author Jakob Lomax [facility] January 23, 2024 12:26am Note Date/Time January 23, 2024 12 :26am [facility] [address] [place] [id number] Progress Note Signed Patient: Alex Anderson MR#: [id number] : 1945 Acct:[id number] Age/Sex: 78 / M Adm Date: 4 Loc: Room: [address] [place] [address] Type: ADM IN Attending Dr: Nas Pruett DO Copies to: ~ Date of Service: 01/22/2024 Progress Narrative Note PROGRESS NOTE Progress Note: Patient had a security alert called earlier this evening after getting aggressive with PCT, I responded to the security alert and received full report from bedside and dental ceramist helper regarding the events. patient did fall but [...] will plan to use Haldol 5mg IM, dental ceramist helper aware to notify me if needed. Formal consult to come tomorrow Documented By: Jakob Lomax DO 01/23/2421 Signed By: <Electronically signed by Jakob Lomax DO> 01/23/246 [facility] Work Phone: 1(979) 121-512208-29-2024 Progress note Author Teo Al [facility] January 22, 2024 2:01pm Note Date/Time January 22, 2024 2: 01pm [facility] [address] [place] [address] Cardiology Progress Note Signed Patient: Alex Anderson MR#: [id number] : 1945 Acct:[id number] Age/Sex: 78 / M Adm Date: 4 Loc: 4P Room: [address] [place] [address] Type: ADM IN Attending Dr: Nas Pruett [...] need toby found as the next step. cap and stud machine operator and PT will be consulted Exam Physical Exam Vital Signs: Temp Pulse Resp BP Pulse Ox O2 Del Method O2 Flow Rate 98.4 F 64 16 98/65 L 96 Room Air 2 01/22/24 11:21 01/22/24 11:21 01/22/24 11:21 01/22/24 11:21 01/22/24 11:21 01/22/24 11:01/19/24 10:00 Const [...] heart failure Documented By: Teo Al MD, [facility] 4 1359 Signed By: <Electronically signed by [facility] Teo Al> 01/22/24 1401 [facility] Work Phone: 1(324) 329-936908-29-2024 Progress note Author Isaac Edwards [facility] January 22, 2024 1:58pm Note Date/Time January 22, 2024 1: 58pm [facility] [address] [place] [address] Pulmonology Progress Note Signed Patient: Alex Anderson MR#: [id number] : 1945 Acct:[id number] Age/Sex: 78 / M Adm Date: 4 Loc: 4 Room: 6D0603-9 Type: ADM IN Attending Dr: Nas Pruett DO Copies to: ~ Date of Service: 01/22/2024 Exam Physical Exam Vital Signs: Temp Pulse Resp BP Pulse Ox O2 Del Method O2 Flow Rate 98.4 F 64 16 98/65 L 96 Room Air 2 01/22/24 11:21 01/22/24 11:21 01/22/24 11:21 01/22/24 11:21 01/22/24 11:21 01/22/24 11:01/19/24 10:00 Const General: cooperative Orientation: alert [...] peripherally. Documented By: Isaac Edwards MD 4 [id number] Signed By: <Electronically signed by MD Isaac Edwards> 01/22/24 1358 [facility] Work Phone: 1(198) 253-502308-28-2024 Progress note Author Teo Al [facility] January 21, 2024 5:24pm Note Date/Time January 21, 2024 5: 24pm [facility] [address] [place] [address] Cardiology Progress Note Signed Patient: Alex Anderson MR#: [id number] : 1945 Acct:[id number] Age/Sex: 78 / M Adm Date: 4 Loc: Room: [address] [place] [address] Type: ADM IN Attending Dr: Nas Pruett [...] % (Auto) 64.3 Lymph % (Auto) 15.6 [place] % (Auto) 16.0 Eos % (Auto) 3.6 Baso % (Auto) 0.5 Nucleat RBC Rel Count 0.1 Neut # (Auto) 5.7 Lymph # (Auto) 1.4 [place] # (Auto) 1.4 H Eos # (Auto) [...] heart failure Documented By: Teo Al MD, [facility] 4 1722 Signed By: <Electronically signed by MD [place] Al> 01/21/24 1724 [facility] Work Phone: 1(596) 800-418908-28-2024 Progress note Author Isaac Edwards [facility] January 21, 2024 11:45am Note Date/Time January 21, 2024 11 :31am [facility] [address] [place] [address] Pulmonology Progress Note Signed Patient: Alex Anderson MR#: [id number] : 1945 Acct:[id number] Age/Sex: 78 / M Adm Date: 4 Loc: Room: [address] [place] [address] Type: ADM IN Attending Dr: Nas Pruett [...] <Electronically signed by MD Isaac Edwards> 01/21/24 1145 [facility] Work Phone: 1([phone]) 664-814408-27-2024 Progress note Author Teo Al [facility] January 20, 2024 3:58pm Note Date/Time January 20, 2024 3: 58pm [facility] [address] [place] [address] Cardiology Progress Note Signed Patient: Alex Anderson MR#: [id number] : 1945 Acct:[id number] Age/Sex: 78 / M Adm Date: 4 Loc: 4C Room: [address] [place] [address] Type: ADM IN Attending Dr: Nas Pruett [...] % (Auto) 71.9 Lymph % (Auto) 11.8 [place] % (Auto) 14.3 Eos % (Auto) 1.7 Baso % (Auto) 0.3 Nucleat RBC Rel Count 0.0 Neut # (Auto) 6.8 Lymph # (Auto) 1.1 [place] # (Auto) 1.4 H Eos # (Auto) [...] heart failure Documented By: Teo Al MD, [facility] 4 1555 Signed By: <Electronically signed by MD NJ Al> 01/20/24 1558 [facility] Work Phone: 1(471) 748-336608-27-2024 Progress note Author Isaac Edwards [facility] January 20, 2024 12:59pm Note Date/Time January 20, 2024 8: 53am [facility] [address] [place] [address] Pulmonology Progress Note Signed Patient: Alex Anderson MR#: [id number] : 1945 Acct:[id number] Age/Sex: 78 / M Adm Date: 4 Loc: Room: [address] [place] [address] Type: ADM IN Attending Dr: Nas Pruett [...] needed. Documented By: Isaac Edwards MD 4 [id number] Signed By: <Electronically signed by MD Isaac Edwards> 01/20/24 1258 [facility] Work Phone: 1(371) 380-867708-26-2024 Progress note Author Isaac Edwards [facility] January 19, 2024 1:20pm Note Date/Time January 19, 2024 9: 06am [facility] [address] [place] [address] Pulmonology Progress Note Signed with Addenda Patient: Alex Anderson MR#: [id number] : 1945 Acct:[id number] Age/Sex: 78 / M Adm Date: 4 Loc: Room: [address] [place] [address] Type: ADM IN Attending Dr: Nas Pruett DO Copies to: ~ ADDENDUM1 Given finding of Enterococcus faecalis from urine culture of January 17, 2024 with relatively benign appearing urinalysis, we will change the patient's chronic indwelling Villarreal with concern for colonization. Note that the patient was scheduled to have a Villarreal catheter change tomorrow. Addendum Documented By: MD Isaac Edwards 01/19/24 132 Addendum Signed By: <Electronically signed by MD [...] <Electronically signed by MD Isaac Edwards> 01/19/24 1219 [facility] Work Phone: 1(123) 374-629708-26-2024 Progress note Author Teo Al [facility] January 19, 2024 12:11pm Note Date/Time January 19, 2024 12 :11pm [facility] [address] [place] [address] Cardiology Progress Note Signed Patient: Alex Anderson MR#: [id number] : 1945 Acct:[id number] Age/Sex: 78 / M Adm Date: 4 Loc: Room: [address] [place] [address] Type: ADM IN Attending Dr: Nas Pruett [...] % (Auto) 78.5 Lymph % (Auto) 8.8 [place] % (Auto) 11.9 Eos % (Auto) 0.4 Baso % (Auto) 0.4 Nucleat RBC Rel Count 0.1 Neut # (Auto) 8.6 H Lymph # (Auto) 1.0 [place] # (Auto) 1.3 H Eos # (Auto) [...] heart failure Documented By: Teo Al MD, [facility] 4 1206 Signed By: <Electronically signed by [facility] Teo Al> 01/19/24 1219 [facility] Work Phone: 1(207) 757-696808-25-2024 Progress note Author Justina Lara [facility] January 18, 2024 3:10pm Note Date/Time January 18, 2024 3: 10pm [facility] [address] [place] [address] Pulmonology Progress Note Signed Patient: Alex Anderson MR#: [id number] : 1945 Acct:[id number] Age/Sex: 78 / M Adm Date: 4 Loc: Room: [address] [place] [address] Type: ADM IN Attending Dr: Nas Pruett [...] managing post PCI/stent in LAD for acute IN. He is on beta- maldonado, antiplatelets, statin, [...] signed by Justina Lara MD> 01/18/24 1510 [facility] Work Phone: 1(659) 681-353308-25-2024 Progress note Author Ana Castro [facility] January 18, 2024 12:49pm Note Date/Time January 18, 2024 12 :50pm [facility] [address] [place] [address] Cardiology Progress Note Signed Patient: Alex Anderson MR#: [id number] : 1945 Acct:[id number] Age/Sex: 78 / M Adm Date: 4 Loc: Room: [address] [place] [address] Type: ADM IN Attending Dr: Nas Pruett [...] MPV Neut % (Auto) Lymph % (Auto) [place] % (Auto) Eos % (Auto) Baso % (Auto) Nucleat RBC Rel Count Neut # (Auto) Lymph # (Auto) [place] # (Auto) Eos # (Auto) Baso # (Auto) PHA Creatinine Clear Sodium Potassium Chloride Carbon Dioxide Anion Gap BUN Creatinine Est GFR (CKD-EPI) Glucose POC Glucose 115 126 Calcium Urine Color Light-yellow Urine Appearance Cloudy A Urine pH 6.0 Ur Specific [place] 1.018 Urine Protein Trace H Urine Glucose [...] % (Auto) 75.1 Lymph % (Auto) 11.5 [place] % (Auto) 12.8 Eos % (Auto) 0.2 Baso % (Auto) 0.4 Nucleat RBC Rel Count 0.0 Neut # (Auto) 9.1 H Lymph # (Auto) 1.4 [place] # (Auto) 1.5 H Eos # (Auto) 0.0 Baso # (Auto) 0.0 PHA Creatinine Clear 46.65 Sodium 136 Potassium 3.7 Chloride 107 Carbon Dioxide 21.2 Anion Gap 11.5 BUN 29 H Creatinine 1.59 H Est GFR (CKD-EPI) 43.613 Glucose 125 H POC Glucose Calcium 8.7 Urine Color Urine Appearance Urine pH Ur Specific [place] Urine Protein Urine Glucose (UA) Urine Ketones [...] signed by MD Ana Castro> 01/18/24 1249 [facility] Work Phone: 1(261) 363-791308-24-2024 Progress note Author Ana Castro [facility] January 17, 2024 12:43pm Note Date/Time January 17, 2024 12 :43pm [facility] [address] [place] [address] Cardiology Progress Note Signed Patient: Alex Anderson MR#: [id number] : 1945 Acct:[id number] Age/Sex: 78 / M Adm Date: 4 Loc: Room: [address] [place] [address] Type: ADM IN Attending Dr: Nas Pruett [...] MPV Neut % (Auto) Lymph % (Auto) [place] % (Auto) Eos % (Auto) Baso % (Auto) Nucleat RBC Rel Count Neut # (Auto) Lymph # (Auto) [place] # (Auto) Eos # (Auto) Baso # (Auto) Platelet Estimate Plt Morphology Comment RBC Morphology PHA Creatinine Clear Sodium Potassium Chloride Carbon Dioxide Anion Gap BUN Creatinine Est GFR (CKD-EPI) Glucose POC Glucose POC Glucose Comment Calcium Troponin I High Sens 33339.4 H* 275581.2 H* 499410.4 H* Triglycerides Cholesterol LDL Cholesterol, Calc VLDL Cholesterol HDL Cholesterol Cholesterol/HDL Ratio 01/16/24 01/16/24 01/16/24 18:37 19:15 21:31 Corrected WBC Uncorrected WBC Count RBC Hgb Hct MCV MCH MCHC RDW Plt Count MPV Neut % (Auto) Lymph % (Auto) [place] % (Auto) Eos % (Auto) Baso % (Auto) Nucleat RBC Rel Count Neut # (Auto) Lymph # (Auto) [place] # (Auto) Eos # (Auto) Baso # (Auto) Platelet Estimate Plt Morphology Comment RBC Morphology PHA Creatinine Clear Sodium Potassium Chloride Carbon Dioxide Anion Gap BUN Creatinine Est GFR (CKD-EPI) Glucose POC Glucose 119 118 POC Glucose Comment Glu2: cleaned meter Calcium Troponin I High Sens 02712.2 H* Triglycerides Cholesterol LDL Cholesterol, Calc VLDL Cholesterol HDL Cholesterol Cholesterol/HDL Ratio 01/17/24 01/17/24 01/17/24 04:37 07:14 11:52 Corrected WBC 17.7 H Uncorrected WBC Count 17.7 H RBC 4.46 Hgb 12.7 L Hct 38.4 L MCV 86.1 MCH 28.4 MCHC 33.0 RDW 15.8 H Plt Count 135 L MPV 9.0 Neut % (Auto) 77.1 Lymph % (Auto) 6.9 [place] % (Auto) 15.6 Eos % (Auto) 0.0 Baso % (Auto) 0.4 Nucleat RBC Rel Count 0.0 Neut # (Auto) 13.6 H Lymph # (Auto) 1.2 [place] # (Auto) 2.8 H Eos # (Auto) [...] Comment Calcium 8.9 Troponin I High Sens 72529.6 H* Triglycerides 67 Cholesterol 74 L LDL [...] signed by MD Ana Castro> 01/17/24 1243 [facility] Work Phone: 1(513) 250-220008-24-2024 Progress note Author Justina Lara [facility] January 17, 2024 11:57am Note Date/Time January 17, 2024 11 :54am [facility] [address] [place] [address] Pulmonology Progress Note Signed Patient: Alex Anderson MR#: [id number] : 1945 Acct:[id number] Age/Sex: 78 / M Adm Date: 4 Loc: Room: [address] [place] [address] Type: ADM IN Attending Dr: Nas Pruett [...] managing post PCI/stent in LAD for acute IN. He is on beta- maldonado, antiplatelets, statin, [...] therapy Documented By: Justina Lara MD 01/17/24 115 Signed By: <Electronically signed by Justina Lara MD> 01/17/24 1157 [facility] Work Phone: 1(401) 781-515308-23-2024 Consult note Author Justina Lara [facility] January 16, 2024 3:19pm Note Date/Time January 16, 2024 3: 16pm [facility] [address] [place] [address] Pulmonology Consult Note Signed Patient: Alex Anderson MR#: [id number] : 1945 Acct:[id number] Age/Sex: 78 / M Adm Date: 4 Loc: Room: 1V2896-7 Type: REG SDC Attending Dr: Nas Pruett [...] abdominal pain nausea was diagnosed with acute IN and transferred from [facility]. He underwent left heart catheterization and stent in mid LAD Review of Systems Review of Systems All other systems reviewed & are negative unless noted below or in HPI Constitutional Constitutional: Reports as per HPI Cardiovascular Cardiovascular: Reports as per HPI and Reports chest pain at rest [facility] Medical History (Updated 01/16/24 @ 12:52 by [...] Pulmonology Intake and Output I&O - Last Hours: Intake & Output 01/15/24 01/16/24 01/16/24 [...] managing post PCI/stent in LAD for acute IN. He is on beta- maldonado, antiplatelets, statin, antihypertensive medication per cardiology Monitor creatinine post cath Bronchodilators as needed for COPD Chest x-ray in a.m. DVT prophylaxis Lovenox Documented By: Justina Lara MD 01/16/24 1509 Signed By: <Electronically signed by Justina Lara MD> 01/16/24 2010 [facility] Work Phone: 1(461) 104-415308-23-2024 History and physical note Author Nas Pruett [facility] January 16, 2024 12:53pm Note Date/Time January 16, 2024 12 :45pm [facility] [address] [place] [address] Cardiology H&P Signed Patient: Alex Anderson MR#: [id number] : 1945 Acct:[id number] Age/Sex: 78 / M Adm Date: 4 Loc: Room: [address] [place] [address] Type: REG SDC Attending Dr: Nas Pruett DO Copies to: MD Nas Richards DO~ Date of Service: 01/16/2024 Cardiology HPI History of Present Illness Chief complaint: Anterior STEMI HPI: Mr. Anderson is a 78 year old male transferred from [place] with acute anterior ST elevation IN; original phone call taken from outside ER attending at 09:30 AM. Patient arrived in Care Manager at 1116, after attempted right femoral approachand [...] of his suspected symptomatology); finally went to [place] ER around 9 30 this morning whereupon he was appropriately he diagnosed, appropriate upstream therapy instituted under my direction after discussion with ER attending, and emergently transferred to [facility] for revascularization. Total 60 minutes nonprocedural critical care time were devoted to the outside ERattending and staff, Care Manager staff, nursing staff, patient and family pre and post procedurally Review of Systems Review of Systems All other systems reviewed & are negative unless noted below or in HPI Constitutional Constitutional: Reports as per HPI Cardiovascular Cardiovascular: Reports as per HPI and Reports chest pain at rest [facility] Medical History (Updated 01/16/24 @ 12:52 by [...] Interpretations EKG EKG results cardiology: sinus rhythm IN, pacemaker, normal Myocardial infarction: anterior IN (acute or recent) A&P - Cardiology (1) [...] <Electronically signed by Nas Pruett DO> 01/16/24 1253 [facility] Work Phone: 1(727) 989-157908-23-2024 Procedure [facility]08-23-2024 Procedure [facility]08-21-2024 Procedure [facility]05-10-2024 Hospital Discharge instructions Patient Education 10/03/2023 [...] Follow these instructions at home: Medicines Take vitb-xlr-hfiburm and prescription medicines only as told by [...] provider. Document Revised: 01/31/2021 Document Reviewed: 01/31/2021 [employer] Patient Education 2022 [employer]. Follow Up Care 08/15/2023 11:04:15 With:ARLENE CASILLAS, Katia Hall, URL Address: [facility] [address] , [place] [address] [phone] When: Unknown [facility] 02-05-2024 Hospital Discharge instructions Patient Education 06/30/2023 [...] Follow these instructions at home: Medicines Take rzlb-dtu-mtaynnl and prescription medicines only as told by [...] provider. Document Revised: 01/31/2021 Document Reviewed: 01/31/2021 [employer] Patient Education 2022 [employer]. Follow Up Care 05/06/2023 11:11:29 With:ARLENE CASILLAS, Katia Hall, URL Address: [facility] [address] , [place] [address]- [phone] When: Unknown Comments:1 day for catheter removal [facility] 01-16-2024 Hospital Discharge instructions Patient Education [...] cotton underwear to absorb moisture and keep dinkey skinner. 6. Keep the drainage bag below the [...] JACOBS Address: [facility] [address] [place] [address]- Business (1) When:06/24/2023 15:15:55 Comments:for villarreal removal [facility]01-16-2024 Note [id number] NoteCustom Rezum Post-Procedure Instructions General [...] site using a circul (more content not included)...[facility]12-12-2023 Evaluation note* Encounter Date Diagnosis Assessment Notes Treatment Notes Treatment Clinical Notes Apr, Primary hypertension (ICD-10 - I10) [facility] Other 11-21-2023 Evaluation note* Encounter Date Diagnosis [...] supplement. I asked the patient to continue vliw-cat-ygqnkpf iron supplement once or twice daily Mar, Primary hypertension (ICD-10 - I10) BP is elevated. Will start Norvasc 5 mg PO daily. i asked the patient to monitor Bp closely with tapering steroid dose [facility] Other 10-17-2023 Hospital Discharge instructions Patient Education [...] including vitamins, herbs, eye drops, creams, and uawk-luq-dxqtjnw medicines. Any problems you or family members [...] provider tells you to take them. Taking xcle-oto-sojsycg medicines, vitamins, herbs, and supplements. Surgery safety [...] provider. Document Revised: 02/05/2022 Document Reviewed: 02/05/2022 [employer] Patient Education 2022 [employer]. 03/11/2023 14:15:06 Benign Prostatic Hyperplasia Benign Prostatic [...] urethra. Follow these instructions at home: Take zzen-tkz-npjiyyx and prescription medicines only as told by [...] provider. Document Revised: 11/28/2021 Document Reviewed: 11/28/2021 [employer] Patient Education 2022 [employer]. Follow Up Care 02/07/2023 16:01:50 With:ARLENE CASILLAS, Katia Hall, URL Address: [facility] [address] , [place] [address]- When:Within 3 Month(s) Comments:Sched cysto/FISH/Cytol/BT check [facility] 10-17-2023 Evaluation + Plan note Diagnostic Tests Pending * [facility]ion Fish and Urine Cyto ([facility]) 03/11/23 [facility]07-18-2023 Evaluation + Plan note Diagnostic Tests Pending * UroVysion Fish and Urine Cyto ([facility]) 12/10/22 [facility]07-18-2023 Hospital Discharge instructions Patient Education [...] if anything looks unusual. Men with a kyysxw-oilm-lgtytd risk for skin cancer may want to see a skin tanner (automatic folder seamer) for an annual body check. What are the benefits of screening? Cancer screening is done to look for cancer in the very early stages, before it spreads and becomesharder to treat and before you would start to notice symptoms. Finding cancer early improves the chances of successful treatment. It may save your life. Where to find more information [place] [employer]: www.cancer.org Centers for Disease Control and Prevention: www.cdc.gov National Cancer Sherrill: www.cancer.gov Contact a health care provider if: [...] Document Reviewed: 04/07/2020 Else[employer] Patient Education 2022 [employer]. Follow Up Care 11/15/2022 14:27:10 With:ARLENE CASILLAS, Katia Hall, URL Address: [facility] [address] , [place] [address]- When: Unknown [facility] 04-26-2023 Hospital Discharge instructions Patient [...] cells. Follow these instructions at home: Take cpbq-npc-mhxzedj and prescription medicines only as told by [...] is important. Where to find more information [place] [employer] (ACS): cancer.org National Cancer Sherrill (NCI): cancer.gov Contact a health care provider [...] provider. Document Revised: 04/22/2022 Document Reviewed: 04/22/2022 [employer] Patient Education 2022 [employer]. Follow Up Care 08/26/2022 14:12:46 With:ARLENE CASILLAS, Katia Hall, URL Address: [facility] [address], [place] [address]- When: Unknown [facility] 04-10-2023 NoteEXAM: XR CHEST 2 V HISTORY: Pre-surgery evaluation COMPARISON: None. TECHNIQUE: PA and lateral views of the chest. FINDINGS: The cardiomediastinal silhouette is normal. No focal consolidation is identified. There is no pneumothorax. No pleural effusion is noted. The osseous structures are intact. IMPRESSION: No acute cardiopulmonary process. Electronically authenticated by: CORKY FORD Date: 2022-09-02 14:17[facility]03-29-2023 Evaluation note* Encounter Date Diagnosis Assessment [...] have his bladder tumor removal as scheduled. [facility] Other 03-08-2023 Evaluation + Plan note Diagnostic Tests Pending * Uro[facility] Fish and Urine Cyto ([facility]) 07/31/22 [facility] 03-08-2023 Hospital Discharge instructions Patient Education 07/31/2022 [...] including vitamins, herbs, eye drops, creams, and uurh-rvu-mlhhcze medicines. Any problems you or family members [...] provider tells you to take them. Taking giiv-vpz-ufojpiq medicines, vitamins, herbs, and supplements. Tests You [...] 03/08/2010 Document Revised: 12/11/2018 Document Reviewed: 12/11/2018 [employer] Patient Education 2020 [employer]. Follow Up Care 07/25/2022 10:56:51 With:ARLENE CASILLAS, Katia Hall, URL Address: [facility] [address] , [place] [address]- When: Unknown [facility] 03-02-2023 Evaluation note* Encounter Date [...] some bladder issues. I did call the [employer]. The device is compatible up to 3 Maggi for MRI. I explained this to the family and the patient. Jul, Other specified postprocedural states (ICD-10 - Z98.890) Jul, Personal history of other diseases of the circulatory system (ICD-10 - Z86.79) [facility] Other [facility]-07-2023 [facility] Evaluation note* Encounter Date Diagnosis Assessment Notes Treatment Notes Treatment Clinical Notes 25 Danny, 2023 Infrarenal abdominal aortic aneurysm (AAA) without rupture [...] plan to do this percutaneously under MAC. [facility] Other 01-17-2023 Hospital Discharge instructions Patient Education [...] including vitamins, herbs, eye drops, creams, and avma-vcr-emihhex medicines. Any problems you or family members [...] provider tells you to take them. ?Taking qlnm-ini-ibhpkjx medicines, vitamins, herbs, and supplements. Follow instructions [...] Follow these instructions at home: Medicines Take wyxi-xep-zvrxgbf and prescription medicines only as told by [...] 05/09/2001 Document Revised: 05/04/2019 Document Reviewed: 05/04/2019 [employer] Patient Education 2020 [employer] Follow Up Care 05/22/2022 13:37:28 With:[facility] Address: [address] 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 [employer] Other 01-10-2023 Evaluation note* Encounter Date Diagnosis [...] (ICD-10 - E78.5) Patient is on statin [employer] Other Discharge summary Author Teo Al [facility] January 23, 2024 3:52pm Note Date/Time January 23, 2024 3: 52pm [facility] [address] [place] [address] Discharge Summary Signed Patient: Alex Anderson MR#: [id number] : 1945 Acct:[id number] Age/Sex: 78 / M Adm Date: 4 Loc: Room: [address] [place] [address]: Nas Pruett DO Copies to: MD Teo Richards MD, [facility] Nas Pruett DO~ Providers Date of Discharge: 01/23/24 Discharging Provider: Teo Al Primary Care Provider: Stanley Emerson Consults: 01/16/24 12:54 Consult to Pulmonology Routine Comment: Consulting Provider: MIGUEL - Pulmon, CC & Sleep Med Reason [...] course: Patient was transferred from [facility] emergency department with anterior ST elevation myocardial infarction and was taken straight to the Care Manager by Dr. Pruett and underwent urgent PCI [...] LHC & COR Angio - W Dariusz Pruett DO p CL PCI AMI 1st Vessel LAD KATHERIN - W Dariusz Pruett DO p CL Iliac/Fem w/LHC - W Dariusz Flynn, DO Discharge Plan Discharge Plan Patient Disposition: [...] doctor or pharmacist, without first calling the cleaner furniture who implanted the stent. If you require [...] weight lifting, stair steppers, etc. until the cleaner furniture approves these activities. Check with the cleaner furniture on your first follow-up visit. CALL YOUR RN SOCIAL SERVICES: -If bleeding should occur from the catheter insertion site- apply pressure to the site then immediately call us. -Report any fever, redness, drainage, increased swelling, or firmness at the catheter insertion site. Some bruising or slight swelling may be present at thetime of discharge. -Should arm or leg become cold, numb, white, or blue, contact the cleaner furniture immediately. -IF you should experience episodes of [...] Cardiopulmonary Rehabilitation program is recommended. The attending cleaner furniture or a nurse clinician should provide you with specificinstructions regarding activity, diet, medications, and further follow up for you. Follow the medication instructions provided on your discharge. If the dosages and instructions on this sheet differ from the dosage and instructions on the bottle, follow the instructions on the bottle. [facility] is not responsible for incorrect prescription information [...] Appearance Clear, Urine pH 5.5, Ur Specific [place] 1.022, Urine Protein Trace H, Urine Glucose (UA) Normal, Urine Ketones Negative, Urine Occult Blood 2+ H, Urine Nitrite Negative, Urine Bilirubin Negative, Urine Urobilinogen 2 H, Ur Leukocyte Esterase 4+ H, Urine RBC 20-49 H, Urine WBC 20-49 H, Urine WBC Clumps Rare H, Ur Squamous Epith CellsN/A, Urine Bacteria Rare, Hyaline Casts None, Urine Mucus Rare Documented By: Teo Al MD, [facility] 4 [id number] Signed By: <Electronically signed by [facility] Teo Al> 01/23/24 1552 [facility] Work Phone: Evaluation + Plan note No data available for this section [facility] evaluation + Plan note Future Appointments Appointment Date:10/04/2022 10:00:00 AM Scheduled Provider: Location:[facility] Appointment Type:URO Nurse Visit [facility] Evaluation + Plan note Future Appointments Appointment Date:06/16/2023 10:00:00 AM Scheduled Provider: Location:[facility] Appointment Type:URO Nurse Visit Appointment Date:06/30/2023 01:30:00 PM Scheduled Provider:Katia JACOBS MD Location:[facility] Appointment Type:URO Office Visit Diagnostic Tests Pending * UroVysion Fish and Urine Cyto ([facility]) [facility] Future App[facility]ments Appointment Date:06/30/2023 01:30:00 PM Scheduled Provider:Katia JACOBS MD Location:[facility] Appointment Type:URO Office Visit [facility] evaluation + Plan note Future Appointments Appointment Date:07/01/2023 08:30:00 AM Scheduled Provider: Location:[facility] Appointment Type:URO Nurse Visit [facility] evaluation + Plan note Future Appointments Appointment Date:09/09/2023 02:15:00 PM Scheduled Provider:Katia JACOBS MD Location:[facility] Appointment Type:URO Procedure 15 min [facility] Evaluation + Plan note Future Appointments Appointment Date:10/07/2023 02:45:00 PM Scheduled Provider:Katia JACOBS MD Location:[facility] Appointment Type:URO Procedure 15 min [facility] Evaluation + Plan note Future Appointments Appointment Date:10/31/2023 11:00:00 AM Scheduled Provider: Location:[facility] Appointment Type:URO Nurse Visit [facility] Evaluation + Plan note Future Appointments Appointment Date:10/31/2023 11:00:00 AM Scheduled Provider: Location:[facility] Appointment Type:URO Nurse Visit Diagnostic Tests Pending * UroVysion Fish and Urine Cyto ([facility]) [facility]03[facility] Future App[facility]ments Appointment Date:11/04/2023 10:30:00 AM Scheduled Provider: Location:[facility] Appointment Type:URO Nurse Visit [facility] Evaluation + Plan note Future Appointments Appointment Date:12/02/2023 11:00:00 AM Scheduled Provider:TC Boles APRN, [place] Location:[facility] Appointment Type:URO Office Visit [facility] evaluation + Plan note Future Appointments Appointment Date:01/20/2024 11:30:00 AM Scheduled Provider:TC Boles APRN, [place] Location:[facility] Appointment Type:URO Office Visit [facility] evaluation + Plan note Future Appointments Appointment Date:04/06/2024 11:00:00 AM Scheduled Provider:Katia JACOBS MD Location:[facility] Appointment Type:URO Procedure 15 min [facility] evaluation + Plan note Future Appointments Appointment Date:05/06/2024 12:30:00 PM Scheduled Provider:Fabi Antonio Location:[facility] Appointment Type:URO Office Visit Appointment Date:10/05/2024 02:00:00 PM Scheduled Provider:Katia JACOBS MD Location:[facility] Appointment Type:URO Procedure 15 min [facility] Evaluation + Plan note Future Appointments Appointment Date:05/06/2024 12:30:00 PM Scheduled Provider:Fabi Antonio Location:[facility] Appointment Type:URO Office Visit Appointment Date:10/05/2024 02:00:00 PM Scheduled Provider:Katia JACOBS MD Location:[facility] Appointment Type:URO Procedure 15 min Diagnostic Tests Pending * UroVysion Fish and Urine Cyto ([facility]) 04/06/24 [facility] Evaluation + Plan note Future Appointments Appointment Date:06/29/2024 10:00:00 AM Scheduled Provider:HEATHER OMALLEY PA-C Location:[facility] Appointment Type:URO Office Visit Appointment Date:10/05/2024 02:00:00 PM Scheduled Provider:Katia JACOBS MD Location:[facility] Appointment Type:URO Procedure 15 min [facility] Evaluation note* Diagnosis Onset Date Resolution Status [...] tract infection) acute Vitamin B 12 deficiency [facility] Work Phone: Evaluation noteNo assessment information available [facility] Work Phone: Evaluigvij noteNo InformationNortHoly [facility] Other Evaluation note* Diagnosis Onset Date Resolution Status Status post endovascular aneurysm repair (EVAR) acute Abdominal aortic aneurysm without rupture acute Anemia acute Chronic kidney disease, stage 3b acute Hyperlipidemia acute Hypertensive nephropathy acu te Iron deficiency [facility] note* Diagnosis Onset Date Resolution Status Abdominal aortic aneurysm without rupture acute Anemia acute Chronic kidney disease, stage 3b acute Hyperlipidemia acute Hypertensive nephropathy acu te Iron deficiency acute Obstructive nephropathy acut e [facility] Work Phone: evaluation note* Diagnosis Onset Date Resolution Status Abdominal aortic aneurysm without rupture acute Atrial fibrillation, new onset acute Chronic kidney disease, stage 3b acute Chronic systolic heart failure acute Delirium acute Hyperlipidemia acute Hypertension acute Hypertensive nephropathy acu te Hypotension acute Impaired mobility and activities of daily living acute Iron deficiency acute Ischemic cardiomyopathy acut e Sleep-wake cycle disorder ac huslia ST elevation myocardial infa rction (STEMI) of anterior wall acute Status post endovascular aneurysm repair (EVAR) acute Stented coronary artery acut e [facility] Work Phone: Evaluation note* Diagnosis Onset Date Resolution Status Abdominal aortic aneurysm without rupture acute Atrial fibrillation, new onset acute Chronic kidney disease, stage 3b acute Chronic systolic heart failure acute Hyperlipidemia acute Hypertensive nephropathy acu te Hypotension acute Impaired mobility and activities of daily living acute Iron deficiency acute Ischemic cardiomyopathy acut e Sleep-wake cycle disorder ac hus[place] ST elevation myocardial infa rction (STEMI) of anterior wall acute Status post endovascular aneurysm repair (EVAR) acute Stented coronary artery acut e Delirium resolved Abdominal aortic aneurysm without rupture acute Anemia acute CHF (congestive heart failure) acute Chronic kidney disease, stage 3b acute Hyperlipidemia acute Hypertensive nephropathy acu te Iron deficiency acute [facility]: Evaluation note* Diagnosis Paroxysmal atrial fibrillation (Multi) Atrial fibrillation documented in this encounter [facility] Work Phone: Evaluation note* Diagnosis Pneumonia of left lower lobe due to infectious organism- Primary Simple chronic bronchitis (CMS/HCC) Simple chronic bronchitis documented in this encounter [facility] HealthcareEvaluation note* Diagnosis Onset Date Resolution Status Abdominal aortic aneurysm without rupture acute Atrial fibrillation, new onset acute Chronic kidney disease, stage 3b acute Chronic systolic heart failure acute Hyperlipidemia acute Hypertensive nephropathy acu te Hypotension acute Impaired mobility and activities of daily living acute Iron deficiency acute Ischemic cardiomyopathy acut e Sleep-wake cycle disorder ac hus[place] ST elevation myocardial infa rction (STEMI) of anterior wall acute Status post endovascular aneurysm repair (EVAR) acute Stented coronary artery acut e Delirium resolved Abdominal aortic aneurysm without rupture acute Anemia acute CHF (congestive heart failure) acute Chronic kidney disease, stage 3b acute Hyperlipidemia acute Hypertensive nephropathy acu te Iron deficiency acute Obstructive nephropathy acut e Chest congestion noneactive [facility] Work Phone: Evaluation note* Diagnosis Onset Date Resolution Status Abdominal aortic aneurysm without rupture acute Atrial fibrillation, new onset acute Chronic kidney disease, stage 3b acute Chronic systolic heart failure acute Hyperlipidemia acute Hypertensive nephropathy acu te Hypotension acute Impaired mobility and activities of daily living acute Iron deficiency acute Ischemic cardiomyopathy acut e Sleep-wake cycle disorder ac [place] ST elevation myocardial infa rction (STEMI) of [...] noneactive Right lower lobe pneumonia n oneactive [facility] Work Phone: Evaluation note* Diagnosis Pneumonia of right lower lobe due to infectious organism documented in this encounter [facility] HealthcareEvaluation note* Diagnosis Coronary artery disease involving [place] coronary artery of [place] heart without angina pectoris- Primary Paroxysmal atrial fibrillation (Multi) Atrial fibrillation High risk medication use S/P PTCA (percutaneous transluminal coronary angioplasty) Postsurgical percutaneous transluminal coronary angioplasty status Cardiomyopathy, ischemic Other specified forms of chronic ischemic heart disease ST elevation myocardial infarction (STEMI), unspecified artery (Multi) Dyslipidemia Other and unspecified hyperlipidemia Stage 3a chronic kidney disease (Multi) Transient cerebral ischemia, unspecified type BMI 26.0-26.9,adult Former smoker Personal history of tobacco use, presenting hazards to health QT prolongation documented in this encounter [facility] Work Phone: Evaluation note* Diagnosis Simple chronic bronchitis (CMS/HCC) Simple chronic bronchitis documented in this encounter [facility]* Diagnosis Paroxysmal atrial fibrillation (Multi) Atrial fibrillation High risk medication use Coronary artery disease involving [place] coronary artery of [place] heart without angina pectoris S/P PTCA (percutaneous transluminal coronary angioplasty) Postsurgical percutaneous transluminal coronary angioplasty status ST elevation myocardial infarction (STEMI), unspecified artery (Multi) Cardiomyopathy, ischemic Other specified forms of chronic ischemic heart disease Essential hypertension Unspecified essential hypertension Dyslipidemia Other and unspecified hyperlipidemia Abdominal aortic aneurysm (AAA) greater than 5.5 cm in diameter in male (CMS-HCC) Transient cerebral ischemia, unspecified type Stage 3a chronic kidney disease (Multi) BMI 26.0-26.9,adult Former smoker Personal history of tobacco use, presenting hazards to health documented in this encounter [facility] Work Phone: Evaluation note* Diagnosis Essential hypertension, benign (CMS/HCC) Essential hypertension, benign Hypertensive nephropathy (CMS/HCC) Unspecified hypertensive kidney disease with chronic kidney disease stage I through stage IV, or unspecified Stage 3a chronic kidney disease (HCC) (CMS/HCC) Microalbuminuria Proteinuria Panlobular emphysema (CMS/HCC) Other emphysema Simple chronic bronchitis (CMS/HCC) Simple chronic bronchitis Mixed dyslipidemia (CMS/HCC) Polypharmacy Issue of repeat prescriptions Mixed conductive and sensorineural hearing loss of both ears Former smoker Personal history of tobacco use, presenting hazards to health Overweight documented in [facility] encounter [facility]* Diagnosis Encounter for Medicare annual wellness exam- Primary Advance directive discussed with patient Encounter for screening for other disorder Screening for alcohol problem Screening for alcoholism Former smoker Personal history of tobacco use, presenting hazards to health Overweight documented in this encounter [facility] and physical note Author Willy Lambert [facility] January 14, 2024 8:46am Note Date/Time January 14, 2024 8: 46am [facility] [address] [place] [address] Gastroenterology H&P Signed Patient: Alex Anderson MR#: [id number] : 1945 Acct:[id number] Age/Sex: 78 / M Adm Date: 4 Loc: Room: Type: [facility] Attending Dr: Willy Lambert MD Copies to: [...] By: <Electronically signed by Willy Lambert MD> 01/14/24 0846 [facility] Work Phone: History general Narrative - [...] 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, 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, 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 [employer] Other History general Narrative - Reported* Type [...] 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, 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, 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 [employer] Other Hisotdl general Narrative - Reported* Type Description Date [...] 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 Hospitalization History SEE ABOVE [facility] Other Hospital Discharge instructions No data available for this section [facility] Progress note No data available for this section [facility] reason for referral (narrative)* Consultation (Routine) - Authorized Specialty Diagnoses / Procedures Referred By Anish t Referred To Contact Cardiac Rehabilitation Diagnoses Coronary artery disease involving aki[place] coronary artery of [place]ki[place] heart without angina pectoris S/P PTCA (percutaneous transluminal coronary angioplasty) ST elevation myocardial infarction (STEMI), unspecified artery (Multi) Teo Al MD [address] [facility] [address], [address] [address] Referral ID Status Reason Start Date Expiration Date Visits Requested Visits Authorized [id number] Authorized Specialty Services Required 02/10/2024 02/09/2025 1 1 Scheduling Instructions Eva * PFT (Routine) - Authorized Specialty Diagnoses / Procedures Referred By Contac t Referred To Contact Diagnoses Paroxysmal atrial fibrillation (Multi) High risk medication use Procedures Complete Pulmonary Function Test (Spirometry/DLCO/Lung Volumes) Teo Al MD [facility] [address], [address] [address] Referral ID Status Reason Start Date Expiration Date V isits Requested Visits Authorized [id number] Authorized 02/10/2024 02/09/2025 1 1 * Imaging (Routine) - Authorized Specialty Diagnoses / Procedures Referred By Contac t Referred To Contact Radiology Diagnoses Paroxysmal atrial fibrillation (Multi) High risk medication use Procedures XR chest 2 views Teo Al MD [facility] [address], [address] [address] Referral ID Status Reason Start Date Expiration Date Visits Requested Visits Authorized [id number] Authorized Perform Procedure 02/10/2024 02/09/2025 1 1 * Consultation (Routine) - Authorized Specialty Diagnoses / Procedures Referred By Contac t Referred To Contact Cardiology Diagnoses Paroxysmal atrial fibrillation (Multi) Procedures Follow Up In Cardiology Teo Al MD [facility] [facility] [address], [address] [address] Teo Al MD [facility] [facility] [address], [address] [address] Referral ID Status Reason Start Date Expiration Date V isits Requested Visits Authorized [id number] Authorized 02/10/2024 02/09/2025 1 1 * Cardiovascular (Routine) - Authorized Specialty Diagnoses / Procedures Referred By Contac t Referred To Contact Diagnoses Paroxysmal atrial fibrillation (Multi) Procedures ECG 12 Lead Teo Al MD [address] [place] [address] [address] [address] Referral ID Status Reason Start Date Expiration Date V isits Requested Visits Authorized [id number] Authorized 02/10/2024 02/09/2025 1 1 * Cardiovascular (Routine) - Authorized Specialty Diagnoses / Procedures Referred By Contac t Referred To Contact Diagnoses Paroxysmal atrial fibrillation (Multi) Procedures ECG 12 Lead Teo Al MD [address] [place] [address] [address], [address] [address] Referral ID Status Reason Start Date Expiration Date V isits Requested Visits Authorized [id number] Authorized 02/10/2024 02/09/2025 1 1 [facility] Work Phone: Summary Purpose Family History No Family History [...] Name Dates Details Family history of benign odc plasm of brain: Father(V19.8, Z84.89) Status:Active Family [...] I71.4 1 YR F/U AAA[place] [facility] [place] Complaint I71.4 1 YR F/U AAA; [place] [facility] [place] 6 month f/u Reason for Visit [...] content) DATE CREATED AUTHOR 05/12/2021 [facility] dical Specialist DATE CREATED AUTHOR AUTHOR'S ORGANIZ ATION 09/23/2022 [facility] DATE CREATED AUTHOR AUTHOR'S ORGANIZ ATION 01/23/2023 [facility] DATE CREATED AUTHOR AUTHOR'S ORGANIZ ATION 01/23/2023 [facility] DATE CREATED AUTHOR AUTHOR'S ORGANIZ ATION 04/08/2024 [facility] DATE CREATED AUTHOR AUTHOR'S ORGANIZ ATION 05/07/2024 [facility] DATE CREATED AUTHOR AUTHOR'S ORGANIZ ATION 05/17/2024 [facility] dical Specialists EPIC DATE CREATED AUTHOR AUTHOR'S ORGANIZ ATION 05/25/2024 [facility] DATE CREATED AUTHOR AUTHOR'S ORGANIZ ATION 05/27/2024 [facility] DATE CREATED AUTHOR AUTHOR'S ORGANIZ ATION 06/10/2024 [facility] Patient Care team informatio n (unrecognized section and content) Team Status: Active Member Role Status Dates Stanley Emerson MD Primary Care Provider Active Team Status: Inactive Member Role Status Dates Stanley Emerosn MD Primary Care Provider Active Start: December [...] End: January 23, 2024 Mckay Yeboah Jr, Other Provider Active S tart: January 16, 2024 End: January 23, 2024 Ryley Hoyt MD Other Provider Active Start: January 16, 2024 End: January 23, 2024 Ledy Randle , ROCIO Other Provider Active Star t: January 16, 2024 End: January 23, 2024 Thu Alvarez RN Other Provider Active Start : January 16, 2024 End: January 23, 2024 Jen Delgado , ROCIO Other Provider Active Star t: January 16, 2024 End: January 23, 2024 Jennifer Rogel RN Other [...] Active Start: Dec End: January 23, 2024 Vidya Hernandez NP-C Other Provider Active St art: January 16, [...] Reji Garcia MD Other Provider Active Start: [facility] 2023 End: January 23, 2024 Lydia [...] End: January 23, 2024 Tico Whitehead , DO Other Provider Active Star t: January 16, 2024 End: January 23, 2024 Alonso Maher , Other Provider Active Start: January 16, [...] Status: Active Member Role Status Dates Stanley mEerson MD Primary Care Provider Active Start: January 23, 2024 Nas Pruett , Admit Provider, Oth er Provider Active Start: January 23, 2024 [...] Active Start: January 23, 2024 Roldan Masterson , Other Provider Active Start: January 23, [...] Claros MD Other Provider Active Start: 2023 Sbe Bonds MD Other Provider Active Start: Dec Basilio Tam MD Other Provider Active Star t: January 23, 2024 Reji Garcia MD Other Provider Active Start: A ust 2023 Lydia Rene DO Other Provider Active Start: 2023 Lucas Dumas , Other Provider Active Start [...] Emmanuel Silverman MD Other Provider Active Start: estefania 2023 Monisha Moore , ROCIO Other Provider Active Start: A ust 2023 Isaac Edwards MD Attending Provider Active Start: January 23, 2024 Team Status: Active Member Role Status Dates Stanley Emerson MD Primary Care Provider Active Start: January 23, 2024 Nas Pruett , Admit Provider, Ot er Provider Active Start: January 23, 2024 Myesha Feliz MD Other Provider Active Start: [facility] 2023 Rogelio Rai MD Attending Provider, Other [...] , ROCIO Other Provider Active Start: A [facility] 2023 Daisha Li RN Other Provider Active Start: [facility] 2023 Radha Berrios MD Other Provider Active [...] Mckenzie MD Other Provider Active Start: A ust 2023 Roseann Velasco APRN Other Provider [...] MD Other Provider Active Start: estefania 2023 Jad Jaffe MD Other Provider Active Start: Dec Vidya Hernandez , DRILLING RIG OPERATOR-C Other Provider Active St art: January 23, 2024 Valdo Sandra APRN Other Provider Active Star t: January 23, 2024 Rob Almazan MD Other Provider Active Start: January 23, 2024 Danielito Claros MD Other Provider Active Start: estefania 2023 Seb Bonds MD Other Provider Active Start: Dec Basilio Tam MD Other Provider Active Star t: January 23, 2024 Reji Garcia MD Other Provider Active Start: A ugust 2023 Lydia Rene DO Other Provider Active Start: estefania 2023 Lucas Dumas DO Other Provider Active [...] Team Status: Inactive Member Role Status Dates Stnaley Emerson MD Primary Care Provider Active Margarito [...] Celia Griffin MD Attending Provider Active Teo Al MD [...] February 04, 2024 End: February 04, 2024 Apartment Assistant Manager Relationship Specialty Start Date End Date Stanley Emerson MD [address] [id number] PCP - General 05/17/22 Apartment Assistant Manager Relationship Specialty Start Date End Date Stanley Emerson MD [address] [place] [address] PCP - ACO Reach 10/17/22 Stanley Emerson MD [address] [place] [address] PCP - General Family Medicine 11/20/22 Dora Santiago LPN Licensed Practical Nurse [facility] Medicine 12/22/23 Apartment Assistant Manager Relationship Specialty Start Date End Date Stanley Emerson MD [address] [place] [address] (Fax) PCP - ACO Reach 10/17/22 Stanley Emerson MD [address] [place] [address] PCP - General Family Medicine 11/20/22 Dora Santiago LPN Licensed Practical Nurse Family Medicine 12/22/23 Team Status: Inactive Member Role Status Dates Stanley Emerson MD Primary Care Provider Active Start: January 16, 2024 End: January 23, 2024 W Dariusz Pruett , Admit Provider, Att ending Provider Active Start: January 16, 2024 End: January 23, 2024 Ledy Randle , ROCIO Other Provider Active Star t: January 16, 2024 End: January 23, 2024 Thu Alvarez , ROCIO Other Provider Active Start : January 16, 2024 End: January 23, 2024 Jen Delgado RN Other Provider Active Star t: January 16, 2024 End: January 23, 2024 Jennifer Rogel RN Other [...] Active Start: Dec End: January 23, 2024 Vidya Hernandez DRILLING RIG OPERATOR-C Other Provider Active St art: January 16, [...] Emmanuel Silverman MD Other Provider Active Start: [facility] 2023 End: January 23, 2024 Monisha Moore RN Other Provider Active Start: A ugust 2023 End: January 23, 2024 Myesha Feliz [...] March 08, 2024 End: March 08, 2024 Apartment Assistant Manager Relationship Specialty Start Date End Date Stanley Emerson MD [address] [place] [address] (Fax) PCP - ACO Reach 10/17/22 Stanley Emerson MD [address] [facility] [place] [address] PCP - General Family Medicine 11/20/22 Dora Santiago LPN Licensed Practical Nurse Family Medicine 12/22/23 Apartment Assistant Manager Relationship Specialty Start Date End Date Stanley Emerson MD [address] [place] [address] (Fax) PCP - ACO Reach 10/17/22 Stanley Emerson MD [address] [place] [address] (Fax) PCP - General Family Medicine 11/20/22 Dora Santiago LPN Licensed Practical Nurse Family Medicine 12/22/23 Apartment Assistant Manager Relationship Specialty Start Date End Date Stanley Emerson MD [address] [place] [address] (Fax) PCP - ACO Reach 10/17/22 Stanley Emerson MD [address] [place] [address] (Fax) PCP - General Family Medicine 11/20/22 Dora Santiago LPN Licensed Practical Nurse Family Medicine 12/22/23 Apartment Assistant Manager Relationship Specialty Start Date End Date Stanley Emerson MD [address] [place] [address] (Fax) PCP - ACO Reach 10/17/22 Stanley Emerson MD [address] [place] [address] (Fax) PCP - General Family Medicine 11/20/22 Dora Santiago LPN Licensed Practical Nurse Family Medicine 12/22/23 Apartment Assistant Manager Relationship Specialty Start Date End Date Stanley Emerson MD [address] [address] (Fax) PCP - ACO Reach 10/17/22 Stanley Emerson MD [address] [address] (Fax) PCP - General Family Medicine 11/20/22 Dora Santiago LPN Licensed Practical Nurse Family Medicine 12/22/23 Apartment Assistant Manager Relationship Specialty Start Date End Date Stanley Emerson MD [address] [phone] PCP - General 05/17/22 Apartment Assistant Manager Relationship Specialty Start Date End Date Stanley Emerson MD [address] [address] (Fax) PCP - ACO Reach 10/17/22 Stanley Emerson MD [address] [place] [address] (Fax) PCP - General Family Medicine 11/20/22 Dora Santiago LPN Licensed Practical Nurse Family Medicine 12/22/23 Apartment Assistant Manager Relationship Specialty Start Date End Date Stanley Emerson MD [address] [place] [address] (Fax) PCP - ACO Reach 10/17/22 Stanley Emerson MD [address] [place] [address] (Fax) PCP - General Family Medicine 11/20/22 Dora Santiago LPN Licensed Practical Nurse Family Medicine 12/22/23 Apartment Assistant Manager Relationship Specialty Start Date End Date Stanley Emerson MD [address] [place] [address] [place] [phone] PCP - General 05/17/22 Apartment Assistant Manager Relationship Specialty Start Date End Date Stanley Emerson MD [address] [place] [address] (Fax) PCP - ACO Reach 10/17/22 Stanley Emerson MD [address] [place] [address] (Fax) PCP - General Family Medicine 11/20/22 Dora Santiago LPN Licensed Practical Nurse Family Medicine 12/22/23 Apartment Assistant Manager Relationship Specialty Start Date End Date Stanley Emerson MD [address] [place] [address] (Fax) PCP - ACO Reach 10/17/22 Stanley Emerson MD [address] [place] [address] (Fax) PCP - General Family Medicine 11/20/22 Dora Santiago LPN Licensed Practical Nurse Family Medicine 12/22/23 REASON FOR VISIT (unrecogniz ed section and content) Reason Comments ekg visit Specialty Diagnoses / Procedures Referred By Contac t Referred To Contact Diagnoses Paroxysmal atrial fibrillation (Multi) Procedures ECG 12 Lead Teo Al MD [address] [place] [id number] Referral ID Status Reason Start Date Expiration Date V isits Requested Visits Authorized [id number] Authorized 02/10/2024 02/09/2025 1 1 Reason Comments URI Reason Comments Hospital Follow-up [facility] [place]/22 Specialty Diagnoses / Procedures Referred By Contac t Referred To Contact Diagnoses Paroxysmal atrial fibrillation (Multi) Procedures ECG 12 Lead Teo Al MD [address] [place] [address] Referral ID Status Reason Start Date Expiration Date V isits Requested Visits Authorized [id number] Authorized 02/10/2024 02/09/2025 1 1 Reason Comments Med Refill Reason Comments Follow-up Specialty Diagnoses / Procedures Referred By Contac t Referred To Contact Cardiology Diagnoses Paroxysmal atrial fibrillation (Multi) Procedures Follow Up In Cardiology Teo Al MD [address] [place] [address] Phone: tel: fax: Teo Al MD [address] [place] [address] Phone: tel: fax: Referral ID Status Reason Start Date Expiration Date V isits Requested Visits Authorized [id number] Authorized 02/10/2024 02/09/2025 1 1 Reason Comments Annual Exam Goals (unrecognized section and content) Goals may [...] BE BASED ON THE PRIMARY CLINICAL RECORDS. [facility]. provides no warranty or guarantee of the accuracy or completeness of information in this document.
[2024-06-17] MEDS: LIDOCAINE 2% JELLY 10 ML UR (04:22)
--- NOTE | 2024-06-17 04:26 | ED_ITS ---
HPI - Male Genitourinary General Chief complaint: Urogenital-Male Stated complaint: CATHETER ISSUE Time Seen by Provider: 06/17/24 04:10 Source: patient Source comment: at bedside Mode of arrival: walk-in Limitations: other Limitations comment: [facility] History of Present Illness HPI Narrative: 78-year-old male presents to the emergency department because his urinary catheter was not draining. They tried flushing it at home but it was not successful. This problem started tonight. No fever or vomiting. He sees a urologist, Dr. Samuels. Related Data Home Medications ?Medication ?Instructions ?Recorded ?Confirmed albuterol sulfate 90 mcg/actuation 1 inh inhalation Q6H PRN 04/13/23 04/28/24 aerosol inhaler bronchospasm amlodipine 5 mg tablet 5 mg PO DAILY 07/30/23 04/28/24 amiodarone 200 mg tablet 200 mg PO Q12H 04/28/24 04/28/24 atorvastatin 80 mg tablet 80 mg PO DAILY 04/28/24 04/28/24 clopidogrel 75 mg tablet 75 mg PO DAILY 04/28/24 04/28/24 furosemide 40 mg tablet (Lasix) 40 mg PO DAILY 04/28/24 04/28/24 nitroglycerin 0.4 mg sublingual 0.4 mg sublingual Q5M PRN chest 04/28/24 04/28/24 tablet pain warfarin 2 mg tablet 2 mg PO DAILY 04/28/24 04/28/24 methimazole 5 mg tablet mg 06/17/24 Allergies Allergy/AdvReac Type Severity Reaction Status Date / Time No Known Drug Allergies Allergy Verified 09/26/23 20:49 Review of Systems ROS Narrative A ten point review of systems is negative except as noted above. [facility] Medical History (Updated 06/17/24 @ 04:41 by Richard Pryor MD) Bladder cancer ?C67.9 - Malignant neoplasm of bladder, unspecified (ICD-10) Social History Smoking status: Current every day smoker Little interest or pleasure in doing things: not at all Feeling down, depressed, or hopeless: not at all Exam Narrative Exam Narrative: Nurses note and vital signs reviewed and patient is not hypoxic. General: The patient appears well and in no apparent distress. Patient is resting comfortably on cart. Skin: Warm, dry, no pallor noted. There is no rash noted. Head: Normocephalic, atraumatic Eye: Normal conjunctiva, no drainage Ears, Nose, Mouth, and Throat: oral mucosa is moist. Nares patent. Cardiovascular: Not tachycardic Respiratory: Patient is in no distress, no accessory muscle use, lungs are clear to auscultation, no wheezing, rales or rhonchi Back: non-tender GI: Minimal suprapubic discomfort on palpation : Villarreal catheter in place with minimal amount of urine in it Musculoskeletal: The patient has no evidence of calf tenderness, no pitting edema, symmetrical pulses noted bilaterally Neurological: A&O, normal speech Psychiatric: Cooperative Constitutional Vital Signs, click to edit/add: Last Vital Signs Temp 97.7 F 06/17/24 04:14 Pulse 91 H 06/17/24 04:14 Resp 16 06/17/24 04:14 BP 129/74 06/17/24 04:14 Pulse Ox 98 06/17/24 04:14 O2 Del Method Room Air 06/17/24 04:14 Course Vital Signs Vital signs: Vital Signs Temperature 97.7 F 06/17/24 04:14 Pulse Rate 91 H 06/17/24 04:14 Respiratory Rate 16 06/17/24 04:14 Blood Pressure 129/74 06/17/24 04:14 Pulse Oximetry 98 06/17/24 04:14 Oxygen Delivery Method Room Air 06/17/24 04:14 Temperature 97.7 F 06/17/24 04:14 Pulse Rate 91 H 06/17/24 04:14 Respiratory Rate 16 06/17/24 04:14 Blood Pressure 129/74 06/17/24 04:14 Pulse Oximetry 98 06/17/24 04:14 Oxygen Delivery Method Room Air 06/17/24 04:14 MDM - Male Genitourinary MDM Narrative Medical decision making narrative: New catheter was placed by nursing staff and is now functioning normally and he is able to be discharged home. Differential Diagnosis Differential diagnosis: Likely other (Villarreal catheter problem) Discharge Plan Discharge Chief Complaint: Urogenital-Male Clinical Impression: Villarreal catheter problem Patient Disposition: Home, Self-Care Time of Disposition Decision: 04:40 Condition: Good Mode of Transportation: Private Vehicle Prescriptions / Home Meds: No Action clopidogrel 75 mg tablet 75 mg PO DAILY warfarin 2 mg tablet 2 mg PO DAILY albuterol sulfate 90 mcg/actuation HFA aerosol inhaler 1 inh INHALATION Q6H PRN (Reason: bronchospasm) amlodipine 5 mg tablet 5 mg PO DAILY amiodarone 200 mg tablet 200 mg PO Q12H atorvastatin 80 mg tablet 80 mg PO DAILY furosemide [Lasix] 40 mg tablet 40 mg PO DAILY nitroglycerin 0.4 mg tablet, sublingual 0.4 mg sublingual Q5M PRN (Reason: chest pain) methimazole 5 mg tablet Print Language: Citizen Of [place] Instructions: Villarreal Catheter Placement and Care (ED) Referrals: NICHOLAS EMERSON [Primary Care Provider] - 1 week
== END 2024-06-17 05:19 | disposition home or self-care (01) ==
PROVIDERS: Emergency Provider Emergency Medicine; PCP Family Medicine
DX: T83.098A Other mechanical complication of other urinary catheter, initial encounter (principal); F17.200 Nicotine dependence, unspecified, uncomplicated; Z51.81 Encounter for therapeutic drug level monitoring; Z79.01 Long term (current) use of anticoagulants; I48.0 Paroxysmal atrial fibrillation
CPT/HCPCS: 51798; 85610; 99284; G0463

== ENCOUNTER 2024-06-28 02:35 | Outpatient (RCR) | payer MEDICARE, OTHER, SELFPAY ==
[2024-06-29 11:27] LABS: Prothrombin Time 61.5 sec (9.0-11.6)
[2024-06-29 11:28] LABS: INR 7.04
== END 2024-07-23 10:51 | disposition home or self-care (01) ==
LOC: MM 02:35
PROVIDERS: PCP Family Medicine; Visit Provider Internal Medicine
DX: Z51.81 Encounter for therapeutic drug level monitoring (principal); Z79.01 Long term (current) use of anticoagulants; I48.0 Paroxysmal atrial fibrillation
CPT/HCPCS: 36415; 85610; G0463

== ENCOUNTER 2024-07-13 12:31 | Outpatient (OUT) | payer MEDICARE, OTHER, SELFPAY ==
[2024-07-13 13:23] LABS: Thyroid Stimulating Hormone 0.039 uIU/mL (0.358-3.740)
[2024-07-13 13:55] LABS: Free T4 1.27 ng/dL (0.76-1.46)
[2024-07-14 04:07] LABS: Triiodothyronine (T3) 78 ng/dL (71-180)
== END 2024-07-13 12:32 | disposition home or self-care (01) ==
LOC: LAB 12:35
PROVIDERS: PCP Family Medicine; Visit Provider Internal Medicine Cardiovascular Disease
DX: Z79.899 Other long term (current) drug therapy (principal); E05.90 Thyrotoxicosis, unspecified without thyrotoxic crisis or storm
CPT/HCPCS: 36415; 84439; 84443; 84480

== ENCOUNTER 2024-07-25 08:07 | Outpatient (RCR) | payer MEDICARE, OTHER, SELFPAY | END 2024-08-20 13:33 | disposition home or self-care (01) | LOC: MM 08:07 | PROVIDERS: PCP Family Medicine; Visit Provider Internal Medicine | DX: Z51.81 Encounter for therapeutic drug level monitoring (principal); Z79.01 Long term (current) use of anticoagulants; I48.91 Unspecified atrial fibrillation | CPT/HCPCS: 85610; G0463 ==

== ENCOUNTER 2024-08-02 11:20 | Outpatient (OUT) | payer MEDICARE, OTHER, SELFPAY ==
[2024-08-02 12:11] LABS: Hematocrit 32.7 % (42.0-54.0); Hemoglobin 9.2 g/dL (14.0-18.0); Mean Corpuscular HGB Conc 28.1 g/dL (29.9-35.2); Mean Corpuscular Hemoglobin 21.8 pg (25.9-34.0); Mean Corpuscular Volume 77.5 fL (80.0-94.0); Mean Platelet Volume 9.8 fL (9.5-13.5); Platelet Count 240 10^3/uL (150-450); Red Blood Count 4.22 10^6/uL (4.70-6.10); Red Cell Distribution Width 20.3 % (11.0-15.0); White Blood Count 7.4 10^3/uL (4.0-11.0)
[2024-08-02 12:24] LABS: Protein Creatinine Ratio Urine 0.66; Total Protein Urine Random 19.4 mg/dL (<=11.9)
[2024-08-02 12:29] LABS: Albumin Level 3.2 g/dL (3.4-5.0); Anion Gap 12.8; BUN Creatinine Ratio 13.5; Calcium 8.5 mg/dL (8.5-10.1); Carbon Dioxide 28.3 mmol/L (21.0-32.0); Chloride 107 mmol/L (98-107); Estimated GFR (African America 38 (>=60 mL/min/1.73m^2); Estimated GFR (Non-African Ame 31 (>=60 mL/min/1.73m^2); Glucose 106 mg/dL (74-106); Magnesium 2.1 mg/dL (1.8-2.4); Phosphorus 3.1 mg/dL (2.6-4.7); Potassium 4.1 mmol/L (3.5-5.1); Sodium 144 mmol/L (136-145); Uric Acid 5.8 mg/dL (3.5-7.2)
[2024-08-02 12:42] LABS: Percent Iron Saturation 6.1 %
[2024-08-03 04:09] LABS: Vitamin B12 399 pg/mL (232-1245)
[2024-08-03 09:08] LABS: PTH, Intact 62 pg/mL (15-65)
== END 2024-08-02 11:21 | disposition home or self-care (01) ==
LOC: LAB 11:32
PROVIDERS: PCP Family Medicine; Visit Provider Internal Medicine Nephrology
DX: D64.9 Anemia, unspecified (principal); I50.9 Heart failure, unspecified; E61.1 Iron deficiency; N13.8 Other obstructive and reflux uropathy; I11.0 Hypertensive heart disease with heart failure
CPT/HCPCS: 36415; 80069; 82306; 82570; 82607; 82728; 82746; 83540; 83550; 83735; 83970; 84156; 84550; 85027

== ENCOUNTER 2024-08-23 14:25 | Outpatient (RCR) | payer MEDICARE, OTHER, SELFPAY ==
--- NOTE | 2024-06-25 16:21 | CR1_ITS ---
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
--- NOTE | 2024-07-23 15:33 | CR1_ITS ---
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
== END 2024-08-23 14:50 | disposition home or self-care (01) ==
LOC: CR 14:25
PROVIDERS: PCP Family Medicine; Visit Provider Internal Medicine Cardiovascular Disease
DX: I25.10 Atherosclerotic heart disease of native coronary artery without angina pectoris (principal); Z98.61 Coronary angioplasty status; I21.3 ST elevation (STEMI) myocardial infarction of unspecified site
CPT/HCPCS: 93798

== ENCOUNTER 2024-08-26 11:46 | Outpatient (RCR) | payer MEDICARE, OTHER, SELFPAY | END 2024-09-22 15:15 | disposition home or self-care (01) | LOC: MM 11:46 | PROVIDERS: PCP Family Medicine; Visit Provider Internal Medicine | DX: Z51.81 Encounter for therapeutic drug level monitoring (principal); Z79.01 Long term (current) use of anticoagulants; R79.89 Other specified abnormal findings of blood chemistry | CPT/HCPCS: 85610; G0463 ==

== ENCOUNTER 2024-09-02 09:09 | Outpatient (OUT) | payer MEDICARE, OTHER, SELFPAY ==
[2024-09-02 11:56] LABS: Cholesterol 86 mg/dL (<=200); HDL Cholesterol 43 mg/dL (40-60); LDL Cholesterol Calculated 26.8 mg/dL; Thyroid Stimulating Hormone 0.537 uIU/mL (0.358-3.740); Triglycerides 81 mg/dL (<=150); VLDL CHOLESTEROL 16.2 mg/dL
== END 2024-09-02 09:10 | disposition home or self-care (01) ==
LOC: LAB 09:22
PROVIDERS: PCP Family Medicine; Visit Provider Internal Medicine Cardiovascular Disease
DX: I48.0 Paroxysmal atrial fibrillation (principal); Z79.899 Other long term (current) drug therapy; E78.5 Hyperlipidemia, unspecified; Z51.81 Encounter for therapeutic drug level monitoring; Z79.01 Long term (current) use of anticoagulants; R79.89 Other specified abnormal findings of blood chemistry
CPT/HCPCS: 36415; 80061; 84443; 85610; G0463

== ENCOUNTER 2024-09-23 04:43 | Outpatient (RCR) | payer MEDICARE, OTHER, SELFPAY | END 2024-10-22 15:13 | disposition home or self-care (01) | LOC: MM 04:43 | PROVIDERS: PCP Family Medicine; Visit Provider Internal Medicine | DX: Z51.81 Encounter for therapeutic drug level monitoring (principal); Z79.01 Long term (current) use of anticoagulants; R79.1 Abnormal coagulation profile | CPT/HCPCS: 85610; G0463 ==

== ENCOUNTER 2024-09-28 17:40 | Emergency (ER) | payer MEDICARE, OTHER, SELFPAY ==
[2024-09-28 17:53] VITALS: BP 145/98; PULSE 82; TEMP 36.8; O2SAT 99; BMI 26.3
--- NOTE | 2024-09-28 18:06 | ED.GENADUL1 ---
HPI HPI - General Adult General Chief complaint: Urogenital-Male Stated complaint: BLOCKED CATHETER Time Seen by Provider: 09/28/24 17:57 Source: family Mode of arrival: Wheelchair Limitations: no limitations and altered mental status History of Present Illness HPI narrative: The patient is coming to the ER with suprapubic discomfort as well as a sense that the catheter is not emptying, patient have a history of chronic Villarreal catheter after a diagnosis of bladder cancer according to the daughter at the bedside Patient denies any fever or chills and he was just evaluated for UTI almost more than a week ago Related Data Home Medications ?Medication ?Instructions ?Recorded ?Confirmed albuterol sulfate 90 mcg/actuation 1 inh inhalation Q6H PRN 04/13/23 04/28/24 aerosol inhaler bronchospasm amlodipine 5 mg tablet 5 mg PO DAILY 07/30/23 04/28/24 amiodarone 200 mg tablet 200 mg PO Q12H 04/28/24 04/28/24 atorvastatin 80 mg tablet 80 mg PO DAILY 04/28/24 04/28/24 clopidogrel 75 mg tablet 75 mg PO DAILY 04/28/24 04/28/24 furosemide 40 mg tablet (Lasix) 40 mg PO DAILY 04/28/24 04/28/24 nitroglycerin 0.4 mg sublingual 0.4 mg sublingual Q5M PRN chest 04/28/24 04/28/24 tablet pain warfarin 2 mg tablet 2 mg PO DAILY 04/28/24 04/28/24 methimazole 5 mg tablet mg 06/17/24 Allergies Allergy/AdvReac Type Severity Reaction Status Date / Time No Known Drug Allergies Allergy Verified 09/28/24 17:53 Opioid HPI Opioid Management Most Recent Opioid Data: Last Pain Scale 4 01/16/24, 09:44 Review of Systems ROS Status of ROS 10 or more systems reviewed and unremarkable except as noted in history and below [facility] Medical History (Updated 09/28/24 @ 18:08 by Talya Bo MD) Bladder cancer ?C67.9 - Malignant neoplasm of bladder, unspecified (ICD-10) Social History Smoking status: Current every day smoker Little interest or pleasure in doing things: not at all Feeling down, depressed, or hopeless: not at all Exam Narrative Exam Narrative: Nurses notes and vital signs reviewed and patient is not hypoxic. General: Well-appearing and in no apparent distress. Skin: Warm, dry, no pallor noted. No rash. Head: Normocephalic, atraumatic. Neck: Supple, non-tender. Eye: Pupils are equal, round and EOMI. No scleral icterus. Ears, Nose, Mouth, and Throat: TM are clear, no nasal mucosal hypertrophy. Oral mucosa is moist, no posterior oropharynx erythema, uvula is mid-line Cardiovascular: Regular Rate and Rhythm without murmur, gallop or rub. Respiratory: No accessory muscle use or respiratory distress. Lungs are clear to auscultation, no wheezing, rales or rhonchi Chest Wall: no tenderness Back: No midline thoracic or lumbar vertebral tenderness. No CVA tenderness Musculoskeletal: normal ROM, no calf or popliteal tenderness, no lower extremity edema/swelling GI: Abdomen is soft, mild suprapubic discomfort and possible distended bladder Neurological: Alert No cranial nerve dysfunction observed. Constitutional Vital Signs, click to edit/add: Last Vital Signs Temp 98.2 F 09/28/24 17:53 Pulse 82 09/28/24 17:53 Resp 20 09/28/24 17:53 BP 145/98 H 09/28/24 17:53 Pulse Ox 99 09/28/24 17:53 O2 Del Method Room Air 09/28/24 17:53 Course Vital Signs Vital signs: Vital Signs Temperature 98.2 F 09/28/24 17:53 Pulse Rate 82 09/28/24 17:53 Respiratory Rate 20 09/28/24 17:53 Blood Pressure 145/98 H 09/28/24 17:53 Pulse Oximetry 99 09/28/24 17:53 Oxygen Delivery Method Room Air 09/28/24 17:53 Temperature 98.2 F 09/28/24 17:53 Pulse Rate 82 09/28/24 17:53 Respiratory Rate 20 09/28/24 17:53 Blood Pressure 145/98 H 09/28/24 17:53 Pulse Oximetry 99 09/28/24 17:53 Oxygen Delivery Method Room Air 09/28/24 17:53 Medical Decision Making [facility] Narrative Medical decision making narrative: The patient had his Villarreal catheter irrigated after which he drained almost more than 600 cc of urine The patient urine was sent for culture and he does not have any symptoms related to urine infection The patient is to follow up with primary care physician in next 2-3 days or to return to the emergency department should any of the signs or symptoms worsen or new symptoms develop. The patient agrees with the following Diagnosis and Treatment plan and the patient will be discharged home. Discharge Plan Discharge Chief Complaint: Urogenital-Male Clinical Impression: Complication of Villarreal catheter Patient Disposition: Home, Self-Care Time of Disposition Decision: 18:07 Condition: Good Prescriptions / Home Meds: No Action clopidogrel 75 mg tablet 75 mg PO DAILY warfarin 2 mg tablet 2 mg PO DAILY albuterol sulfate 90 mcg/actuation HFA aerosol inhaler 1 inh INHALATION Q6H PRN (Reason: bronchospasm) amlodipine 5 mg tablet 5 mg PO DAILY amiodarone 200 mg tablet 200 mg PO Q12H atorvastatin 80 mg tablet 80 mg PO DAILY furosemide [Lasix] 40 mg tablet 40 mg PO DAILY nitroglycerin 0.4 mg tablet, sublingual 0.4 mg sublingual Q5M PRN (Reason: chest pain) methimazole 5 mg tablet Print Language: Uz[place] Instructions: Villarreal Catheter Placement and Care (ED) Referrals: NICHOLAS EMERSON [Primary Care Provider, Family Practice] - 1 week
[2024-09-28 18:26] VITALS: PULSE 75; O2SAT 99
== END 2024-09-28 18:26 | disposition home or self-care (01) ==
PROVIDERS: Emergency Provider Emergency Medicine; PCP Family Medicine
DX: T83.098A Other mechanical complication of other urinary catheter, initial encounter (principal); C67.9 Malignant neoplasm of bladder, unspecified; R82.998 Other abnormal findings in urine; R10.9 Unspecified abdominal pain; F17.200 Nicotine dependence, unspecified, uncomplicated
CPT/HCPCS: 51798; 87086; 87088; 87186; 99283

== ENCOUNTER 2024-10-01 14:50 | Emergency (ER) | payer MEDICARE, OTHER, SELFPAY ==
[2024-10-01 15:04] VITALS: BP 118/71; PULSE 79; TEMP 37.2; O2SAT 97; BMI 25.7
--- NOTE | 2024-10-01 15:10 | ED.GENADUL1 ---
HPI HPI - General Adult General Chief complaint: Altered Mental Status Stated complaint: ALTERED MENTAL STATUS Time Seen by Provider: 10/01/24 15:09 Source: patient Mode of arrival: walk-in Limitations: no limitations History of Present Illness HPI narrative: Patient is a 78-year-old male who is coming in with multiple concerns of mental health disorder by his . Patient's is at bedside, she is main historian. Patient lives at home with his . Patient for the past 6 months has been declining with mental status, dementia. In the past 2 weeks patient has been having more paranoia, visual hallucinations, and delusions. Patient believes that there are people running around his house and outside trying to attack him and his . Patient has been trying to protect his and home. Patient states that he also is seeing individuals, and stating that he needs to have meetings with the FBI to help secure the house to make complaints about people that are attacking his house. Patient takes Abilify. Patient has not been sleeping the last few nights. Patient's has a history of schizophrenia, she takes Seroquel. Patient's is very tearful when she stated that patient will have 2 Seroquel tablets in his body because she gave him 2 Seroquel last evening. Patient did sleep a few hours last evening. Then patient woke up with 320 5 in the morning trying to get into his gun safe with his group screwdriver. Patient's have locked up the guns in a safe, she had the diaz. Patient had woken up with a screwdriver trying to get into the gun safe. Patient also woke up this morning with a knife in his pocket that is uncertain where that came from. Patient has not threatened his yet, patient's is fearful that he will try to hurt or attacked her as well since he has been having paranoia, delusions and visual hallucinations. Patient has been eating and drinking slightly less. Patient has no psychiatrist. Patient PCP is prescribing the Abilify. Patient's sees a psychiatrist, Dr. Pettit from [facility]. Patient does not have an appointment with a psychiatrist yet. Patient complains of no headache, no chest pain or shortness of breath. Patient has chronic swelling to right lower extremity. All systems are negative except as noted/marked. All systems reviewed and otherwise negative. Nurses note and vital signs reviewed and patient is not hypoxic. Patient told me during physical exam that he needs to get home to have his meeting with the FBI concerning the people that are attacking his house . General: The patient appears well and in no apparent distress. Patient is resting comfortably on cart. Patient is not toxic, lethargic, or listless. Skin: Warm, dry, no pallor noted. There is no rash noted. No petechiae, purpura. Head: Normocephalic, atraumatic Eye: Normal conjunctiva, no drainage, EOMI. PERRL Ears, Nose, Mouth, and Throat: oral mucosa is dry. Nares patent. Mouth without vesicles. Cardiovascular: Regular Rate and Rhythm, no murmur, gallop, rub Respiratory: Patient is in no distress, no accessory muscle use, lungs are clear to auscultation, no wheezing, rales or rhonchi Back: non-tender, no CVA tenderness bilaterally to percussion. No CT LS midline pain GI: no tenderness to palpation, no masses appreciated. No rebound, guarding, or rigidity noted. No distention Musculoskeletal: Patient has full range of motion of all of the extremities, no motor, sensory, or focal neurological deficits . Patient has chronic lymphedema to right lower extremity compared to left. The swelling to the right lower extremity is not new today compared to normal baseline per patient and . Neurological: A&O x2, slightly confused at time, short pressured few word sentence/speech. Psychiatric: Cooperative Related Data Home Medications ?Medication ?Instructions ?Recorded ?Confirmed albuterol sulfate 90 mcg/actuation 1 inh inhalation Q6H PRN 04/13/23 10/01/24 aerosol inhaler bronchospasm amiodarone 200 mg tablet 200 mg PO Q12H 04/28/24 10/01/24 atorvastatin 80 mg tablet 80 mg PO QPM 04/28/24 10/01/24 clopidogrel 75 mg tablet 75 mg PO DAILY 04/28/24 10/01/24 furosemide 40 mg tablet (Lasix) 40 mg PO DAILY 04/28/24 10/01/24 nitroglycerin 0.4 mg sublingual 0.4 mg sublingual Q5M PRN chest 04/28/24 10/01/24 tablet pain warfarin 2 mg tablet 2 mg PO DAILY 04/28/24 10/01/24 methimazole 5 mg tablet 5 mg PO BID 06/17/24 10/01/24 aripiprazole 2 mg tablet 1 mg PO .QHS 10/01/24 10/01/24 cephalexin 250 mg capsule 250 mg PO .MWF 10/01/24 10/01/24 ferrous sulfate 325 mg (65 mg 325 mg PO BID 10/01/24 10/01/24 iron) tablet metoprolol succinate 25 mg 25 mg PO .QD 10/01/24 10/01/24 tablet,extended release 24 hr potassium chloride 20 mEq 20 meq PO .QD 10/01/24 10/01/24 tablet,extended release(part/cryst) Allergies Allergy/AdvReac Type Severity Reaction Status Date / Time No Known Drug Allergies Allergy Verified 10/01/24 15:03 Opioid HPI Opioid Management Most Recent Opioid Data: Last Pain Scale 4 01/16/24, 09:44 Ur Phencyclidine Scrn, (NEGATIVE) Negative Today, 15:40 [facility] Medical History (Updated 10/01/24 @ 19:27 by Robe Hansen MD) Bladder cancer ?C67.9 - Malignant neoplasm of bladder, unspecified (ICD-10) Social History Smoking status: Current every day smoker Little interest or pleasure in doing things: not at all Feeling down, depressed, or hopeless: not at all Exam Constitutional Vital Signs, click to edit/add: Last Vital Signs Temp 98.9 F 10/01/24 15:04 Pulse 79 10/01/24 15:04 Resp 18 10/01/24 15:04 BP 118/71 10/01/24 15:04 Pulse Ox 97 10/01/24 15:04 O2 Del Method Room Air 10/01/24 15:04 Course Vital Signs Vital signs: Vital Signs Temperature 98.9 F 10/01/24 15:04 Pulse Rate 79 10/01/24 15:04 Respiratory Rate 18 10/01/24 15:04 Blood Pressure 118/71 10/01/24 15:04 Pulse Oximetry 97 10/01/24 15:04 Oxygen Delivery Method Room Air 10/01/24 15:04 Temperature 98.9 F 10/01/24 15:04 Pulse Rate 79 10/01/24 15:04 Respiratory Rate 18 10/01/24 15:04 Blood Pressure 118/71 10/01/24 15:04 Pulse Oximetry 97 10/01/24 15:04 Oxygen Delivery Method Room Air 10/01/24 15:04 Medical Decision Making [facility] Narrative Medical decision making narrative: Patient seen and examined: Medical clearance, geriatric Psychiatric: Clearance Differential diagnosis includes but is not limited to: Dehydration, electrolyte abnormality, hyponatremia, closed head injury, intracranial hemorrhage, UTI, Inspection: Diagnostics and management: Patient will have laboratory studies Relevant laboratory interpretation: Hemoglobin 11, hematocrit 36, BUN at 26/2. Radiological studies: Please see the formal radiological report. 1722 No acute findings were seen on chest x-ray or CT of the head. We are currently waiting for the official report from radiologist. CT of the brain was read as no acute findings. Radiologist read chest x-ray as right lower lobe infiltrate. Patient will be placed on a Z-Tyler secondary to having COPD history. Reevaluation: Patient feels slightly better after IV fluids. Shared decision making: I discussed with the patient the necessary laboratory findings and radiological findings. Social barriers to healthcare: There are no food insecurities, there is no issue with transportation, there are no insurance barriers. Disposition: I discussed with the patient Patient has been pink slipped by myself secondary to delusion, hallucination, paranoia, able to function at home. Patient's is feared that he will injure himself or her. Kathleen CHAN 1610 case was discussed with [facility]. They are waiting for patient's testing come back before they evaluate the patient. 1722 patient is medically clear. 1725 Kathleen CHAN, spoken to [facility], calming [facility] provider/counselor is coming to see and evaluate the patient in person for assessment and placement. Second EKG was done. Artifact on first EKG. Second EKG is normal sinus rhythm, A-fib not noted. 1900 patient is transition to Dr. Mosley to follow-up with final disposition facility, doctor's name, and filling out final paperwork for transfer. Patient was pink slipped by Dr. Hansen. Patient has nitrite, bacteria in his urine. Patient was given a dose of IV Rocephin. Urine culture will be done. Patient has no urinary symptoms. Radiologist also read chest x-ray as right lower lobe infiltrate. Patient was given IV Rocephin prior to transfer along with oral Zithromax. Patient has been complaining of mild cough and congestion the last few days, patient does have history of COPD. Patient will be placed on Zithromax prophylactically, paper prescription was written since patient is going to medical facility. Urine culture is pending. Patient was given 1 dose of IV Rocephin. If urine culture does show bacteria, he has asymptomatic cystitis, but a prescription will need to be called to to the [facility] psychiatric facility if urine culture does show positive infection in patient's urine. Critical care time 45 minutes exclusive from separate billable procedures that were performed. The following was considered in the determination of critical care but not limited to the level of medical decision making, intensive cardiac and/or respiratory monitoring, frequent vital sign monitoring, evaluation of laboratory studies, evaluation of radiographic studies, oxygen monitoring, and constant monitoring and speaking to family at bedside Lab Data Lab results reviewed: Yes I reviewed the patient's lab results Labs: Lab Results 10/01/24 10/01/24 Range/Units 15:40 15:45 WBC 10.1 (4.0-11.0) 10^3/uL RBC 4.54 L (4.70-6.10) 10^6/uL Hgb 11.0 L (14.0-18.0) g/dL Hct 36.7 L (42.0-54.0) % MCV 80.8 (80.0-94.0) fL MCH 24.2 L (25.9-34.0) pg MCHC 30.0 (29.9-35.2) g/dL RDW 20.3 H (11.0-15.0) % Plt Count 183 (150-450) 10^3/uL MPV 10.2 (9.5-13.5) fL Seg Neuts % (Manual) 81.0 H (43.0-75.0) Lymphocytes % (Manual) 9.0 L (20.5-60.0) % Monocytes % (Manual) 11.0 (1.7-12.0) % Eosinophils % (Manual) 1.0 (0.9-7.0) % Basophils % (Manual) 1.0 (0.2-2.0) % Neutrophils # (Manual) 8.18 H (1.4-6.5) 10^3/uL Lymphocytes # (Manual) 0.90 L (1.20-3.80) 10^3/uL Monocytes # (Manual) 1.11 H (0.30-0.80) 10^3/uL Eosinophils # (Manual) 0.10 (0.00-0.70) 10^3/uL Basophils # (Manual) 0.10 (0.00-0.10) 10^3/uL Sodium 139 (136-145) mmol/L Potassium 3.6 (3.5-5.1) mmol/L Chloride 104 (98-107) mmol/L Carbon Dioxide 30.7 (21.0-32.0) mmol/L Anion Gap 7.9 BUN 26.0 H (7.0-18.0) mg/dL Creatinine 2.01 H (0.70-1.30) mg/dL Est GFR ( Amer) 39 L (>=60 mL/min/1.73m^2) Est GFR (Non-Af Amer) 32 L (>=60 mL/min/1.73m^2) BUN/Creatinine Ratio 12.9 Glucose 120 H (74-106) mg/dL Calcium 8.7 (8.5-10.1) mg/dL Total Bilirubin 0.4 (0.2-1.0) mg/dL AST 22 (15-37) U/L ALT 32 (16-63) U/L Alkaline Phosphatase 139 H (46-116) U/L Troponin I High Sens 17.2 (4.0-76.1) pg/mL Total Protein 6.6 (6.4-8.2) g/dL Albumin 3.2 L (3.4-5.0) g/dL Globulin 3.4 g/dL Albumin/Globulin Ratio 0.9 TSH 0.708 (0.358-3.740) uIU/mL Urine Color Lt. yellow (YELLOW) Urine Clarity Sl cloudy (CLEAR) Urine pH 6.0 (5.0-9.0) Ur Specific Sharon 1.010 (1.005-1.025) Urine Protein Negative (NEG/TRACE) mg/dL Urine Glucose (UA) Negative (NEGATIVE) mg/dL Urine Ketones Negative (NEGATIVE) mg/dL Urine Occult Blood Trace-i (NEGATIVE) Urine Nitrite Positive A (NEGATIVE) Urine Bilirubin Negative (NEGATIVE) Urine Urobilinogen 0.2 (0.2-1.0) EU/dL Ur Leukocyte Esterase Small A (NEGATIVE) Urine RBC 2-5 A (0-2) #/HPF Urine WBC 2-5 A (NONE SEEN) #/HPF Ur Squamous Epith Cells Rare (NONE/RARE) #/LPF Urine Crystals None seen (None Seen) #/HPF Urine Bacteria Moderate A (NONE SEEN) #/HPF Urine Casts None seen (NONE SEEN) #/LPF Urine Mucus None seen (NONE SEEN) Ur Culture Indicated? [facility] Salicylates <2.8 (<=19.9) mg/dL Urine Opiates Screen Negative (NEGATIVE) Ur Buprenorphine Scrn Negative (NEGATIVE) Ur Oxycodone Screen Negative (NEGATIVE) Urine Methadone Screen Negative (NEGATIVE) Acetaminophen <2.0 L (10.0-30.0) ug/mL Ur Barbiturates Screen Negative (NEGATIVE) U Tricyclic Antidepress Positive A (NEGATIVE) Ur Phencyclidine Scrn Negative (NEGATIVE) Ur Amphetamines Screen Negative (NEGATIVE) U Methamphetamines Scrn Negative (NEGATIVE) U Benzodiazepines Scrn Negative (NEGATIVE) Urine Cocaine Screen Negative (NEGATIVE) U Cannabinoids Screen Negative (NEGATIVE) Ethanol Quant <3 mg/dL ECG Data Attestation: I personally reviewed and interpreted this ECG as follows: (EKG interpretation. Normal sinus rhythm at 74 beats a minute. Normal axis deviation. Artifact seen. ST depression noted through the anterior lateral leads, artifact seen. QTc of 426. R to R Is regular.) Interpretation: EKG #2. Normal sinus rhythm at 70 beats a minute. Normal axis deviation. Nonspecific ST changes, P waves noted. QTc of 423. Discharge Plan Discharge Chief Complaint: Altered Mental Status Clinical Impression: Paranoia, Hallucination, visual, Insomnia, Delusional disorder, Pneumonia involving right lung Patient Disposition: [facility] Condition: Fair
--- NOTE | 2024-10-01 15:52 | ECG_ITS ---
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 Measurements Intervals [place] Rate: 74 P: -[id number] PA: 172 QRS: 55 QRSD: 122 T: 138 QT: 398 QTc: 426 Interpretive Statements Normal sinus rhythm 3432 Septal myocardial infarction, probably recent 3514 Cannot rule out lateral myocardial infarction, age undetermined 12081 Twave abnormality, possible anterior ischemia or digitalis effect 9150 abnormal ECG Compared to ECG 01/16/2024 09:19:38 Myocardial infarct finding still present Possible ischemia still present Electronically Signed On 10-01-2024 18:46:59 EDT by RISA GUSTAFSON M.D.
--- NOTE | 2024-10-01 16:00 | PC.NURSE ---
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
[2024-10-01 16:03] LABS: Hematocrit 36.7 % (42.0-54.0); Mean Corpuscular Hemoglobin 24.2 pg (25.9-34.0); Mean Corpuscular Volume 80.8 fL (80.0-94.0); Mean Platelet Volume 10.2 fL (9.5-13.5); Platelet Count 183 10^3/uL (150-450); Red Blood Count 4.54 10^6/uL (4.70-6.10); Red Cell Distribution Width 20.3 % (11.0-15.0); White Blood Count 10.1 10^3/uL (4.0-11.0)
[2024-10-01 16:07] LABS: Bilirubin Urine NEGATIVE (NEGATIVE); Blood Urine TRACE-I (NEGATIVE); Clarity Urine SL CLOUDY (CLEAR); Color Urine LT. YELLOW (YELLOW); Glucose Urine UA NEGATIVE (NEGATIVE); Ketones Urine NEGATIVE (NEGATIVE); Leukocyte Esterase Urine SMALL (NEGATIVE); Nitrite Urine POSITIVE (NEGATIVE); Protein Urine NEGATIVE (NEG/TRACE); Urobilinogen Urine 0.2 EU/dL (0.2-1.0)
--- NOTE | 2024-10-01 16:10 | PC.NURSE ---
spoke with Kamilah at [facility], facesheet sent awaiting labs
[2024-10-01 16:15] LABS: Amphetamine Screen Urine NEGATIVE (NEGATIVE); Barbiturates Screen Urine NEGATIVE (NEGATIVE); Benzodiazepines Screen Urine NEGATIVE (NEGATIVE); Buprenorphine Screen Urine NEGATIVE (NEGATIVE); Cannabinoid Screen Urine NEGATIVE (NEGATIVE); Cocaine Screen Urine NEGATIVE (NEGATIVE); Methadone Screen Urine NEGATIVE (NEGATIVE); Methamphetamines Screen Urine NEGATIVE (NEGATIVE); Opiate Screen Urine NEGATIVE (NEGATIVE); Oxycodone Screen Urine NEGATIVE (NEGATIVE); Phencyclidine Screen Urine NEGATIVE (NEGATIVE); Tricyclic Antidepressant Urine POSITIVE (NEGATIVE)
[2024-10-01 16:19] LABS: Bacteria Urine MODERATE #/HPF (NONE SEEN); Cast Seen? NONE SEEN #/LPF (NONE SEEN); Crystals Seen? None Seen #/HPF (None Seen); Mucus Urine NONE SEEN (NONE SEEN); Squamous Epithelial Cell Urine RARE #/LPF (NONE/RARE)
[2024-10-01 16:19] LABS: Alanine Aminotransferase 32 U/L (16-63); Albumin Globulin Ratio 0.9; Albumin Level 3.2 g/dL (3.4-5.0); Alkaline Phosphatase 139 U/L (46-116); Anion Gap 7.9; Aspartate Amino Transferase 22 U/L (15-37); BUN Creatinine Ratio 12.9; Bilirubin Total 0.4 mg/dL (0.2-1.0); Calcium 8.7 mg/dL (8.5-10.1); Carbon Dioxide 30.7 mmol/L (21.0-32.0); Chloride 104 mmol/L (98-107); Estimated GFR (African America 39 (>=60 mL/min/1.73m^2); Estimated GFR (Non-African Ame 32 (>=60 mL/min/1.73m^2); Globulin 3.4 g/dL; Glucose 120 mg/dL (74-106); Potassium 3.6 mmol/L (3.5-5.1); Sodium 139 mmol/L (136-145); Total Protein 6.6 g/dL (6.4-8.2)
[2024-10-01 16:20] LABS: Urine Culture Indicated YES-FRMC
[2024-10-01] MEDS: 0.9 % SODIUM CHLORIDE 1,000 ML 1000 ML IV (16:20)
[2024-10-01 16:25] LABS: Monocytes Absolute Manual 1.11 10^3/uL (0.30-0.80); Segmented Neut Absolute Manual 8.18 10^3/uL (1.4-6.5)
[2024-10-01 16:27] LABS: Ethanol <3 mg/dL; Thyroid Stimulating Hormone 0.708 uIU/mL (0.358-3.740); Troponin I High Sensitivity 17.2 pg/mL (4.0-76.1)
[2024-10-01 16:28] LABS: Acetaminophen <2.0 ug/mL (10.0-30.0); Salicylate <2.8 mg/dL (<=19.9)
--- NOTE | 2024-10-01 17:06 | ECG_ITS ---
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 Measurements Intervals [place] Rate: 70 P: -[id number] GA: 150 QRS: 60 QRSD: 120 T: 124 QT: 402 QTc: 423 Interpretive Statements Normal sinus rhythm 3432 Septal myocardial infarction, probably recent 4364 Twave abnormality, possible anterolateral ischemia 9150 abnormal ECG Compared to ECG 10/01/2024 15:12:49 No significant changes Electronically Signed On 10-01-2024 18:48:56 EDT by RISA GUSTAFSON M.D.
--- NOTE | 2024-10-01 17:24 | PC.NURSE ---
Spoke with Kamilah REDD, she states Katya will be here within the hour for an in person assessment
[2024-10-01] MEDS: CEFTRIAXONE 1,000 MG in 0.9 % SODIUM CHLORIDE 50 ML 100 MG IV (19:37)
[2024-10-01] MEDS: AZITHROMYCIN 250 MG TABLET 500 MG PO (19:37)
[2024-10-02 01:32] VITALS: BP 122/80; PULSE 68; O2SAT 98
== END 2024-10-02 09:14 | disposition short-term general hospital (02) ==
PROVIDERS: Emergency Medicine; Emergency Provider Internal Medicine; PCP Family Medicine
DX: J18.9 Pneumonia, unspecified organism (principal); N39.0 Urinary tract infection, site not specified; F29 Unspecified psychosis not due to a substance or known physiological condition; F03.90 Unspecified dementia, unspecified severity, without behavioral disturbance, psychotic disturbance, mood disturbance, and anxiety; Z79.899 Other long term (current) drug therapy; F17.200 Nicotine dependence, unspecified, uncomplicated; J44.0 Chronic obstructive pulmonary disease with (acute) lower respiratory infection; F22 Delusional disorders; G47.00 Insomnia, unspecified
CPT/HCPCS: 36415; 70450; 71046; 80053; 80179; 80307; 80320; 80329; 81001; 84443; 84484; 85007; 85027; 87086; 87088; 87186; 93005; 96365; 99285; J0696

== ENCOUNTER 2024-10-24 08:03 | Outpatient (RCR) | payer MEDICARE, OTHER, SELFPAY | END 2024-11-18 14:53 | disposition home or self-care (01) | LOC: MM 08:03 | PROVIDERS: PCP Family Medicine; Visit Provider Internal Medicine | DX: Z51.81 Encounter for therapeutic drug level monitoring (principal); Z79.01 Long term (current) use of anticoagulants; I48.0 Paroxysmal atrial fibrillation | CPT/HCPCS: 85610; G0463 ==

== ENCOUNTER 2024-10-27 11:21 | Outpatient (OUT) | payer MEDICARE, OTHER, SELFPAY ==
--- OUTSIDE RECORDS SUMMARY | 2019-12-10 07:15 | XMS_ITS | Continuity of Care Document ---
Author Organization [facility] Address [address] [place] [phone] Phone Care Team Providers Care Hydrogen Power Plant Engineer Name Role Phone Alberto Farrell Unavailable Unavailable Procedures Procedure Date Covid Testing [facility] Results Test Name Date and Time Measure Units Reference Range Abnormal Flag Status Comments Panel Description: SARS-CoV-2, KARI Final SARS-CoV- 2, KARI 020 18:04:00 Not Detected Not Detected Final This test was developed and its performance characteristics determinedby [employer]. This test has not been FDA cleared [...] anegative (not detected) result in this assay.Performed by:[facility] ([facility]) Panel Description: SARS-CoV-2 Antibody, IgM [facility] SARS-CoV- 2 Antibody, IgM 020 16:11:00 Negative Negative Final This sample do es not contain detectable SARS-CoV-2 IgM antibodies.This negative result does not rule out SARS-CoV-2 infection.Correlation with epidemiologic risk factors and other clinical andlaboratory findings is recommended. Serologic results should not beused as the sole basis to diagnose or exclude recent [id number].P erformed by:[facility] ([employer]) Panel Description: SARS-CoV-2 Antibody, IgG Fin al SARS-CoV- 2 Antibody, IgG 020 07:12:00 Negative Negative Final This sample do es not contain detectable SARS-CoV-2 IgG antibodies.This negative result does not rule out SARS-CoV-2 infection.Correlation with epidemiologic risk factors and other clinical andlaboratory findings is recommended. Serologic results should not beused as the sole basis to diagnose or exclude recent [id number].T his assay was performed using the [employer] SARS-CoV-2 IgG assay.Performed by:[facility] ([employer]) Advance Directives Directive Yes / No Effective Date File Name No Information Encounters Encounter Description Practice Location Reason(s) For Visit Diagnoses Date Provider Providers Copied on Encounter [facility], [address] [place] [address], [id number], [place] tel:[phone] COVID ECHD Encounter for screening for other viral diseases Visci DO Alberto. [address] [place] [address], [id number], [place]. tel:[phone] Family History Family Member Type Diagnosis Age At Onset No Information Payers Payer name Insurance type Covered republican ID Authoriza tion(s) Medicare [facility] [id number] Social History Type Description Quantity Date Captured [...]
--- OUTSIDE RECORDS SUMMARY | 2024-10-14 14:30 | XMS_ITS | Encounter Summary ---
Author Organization [facility] Address [address] [place] [address] Care Team Providers Care Commercial Light Fixture Assembler Name Role Phone Stanley Toledo MD Unavailable [phone] Stanley Toledo MD Primary Care Provider + [phone] Joi Zhang LPN Unavailable Unavailable Encounter Details Date Type Department Care Team (Late st Contact Info) Description 10/14/2024 2:30 PM EDT Office Visit [facility] [address] [place] [address] Stanley Toledo MD 112 [facility] [address] [place] [address] Pneumonia of left lower lobe due to infectious organism; Encounter for examination following treatment at hospital; Lower extremity edema; Delirium due to another medical condition Social History Tobacco Use Types Packs/Day Years Used Date Smoking Tobacco: Former Cigarettes 0.5 60.8 S tarted: 12/31/1965 Smokeless Tobacco: Never Alcohol Use Standard Drinks/Week Comments Never 0 (1 standard drink = 0.6 oz pur e alcohol) B1300 Health Literacy Answer Date Recor ded How often do you need to hav e someone help you when you read instructions, pamphlets, or other written material from your doctor or pharmacy? Always 12/31/2023 Humiliation, Afraid, Rape, and Kick questionnair e Answer Date Recorded Within the last year, have y ou been afraid of your partner or ex-partner? No 12/31/2023 Within the last year, have y ou been humiliated or emotionally abused in other ways by your partner or ex-partner? No Within the last year, have y ou been kicked, hit, slapped, or otherwise physically hurt by your partner or ex-partner? No 12/31/2023 Within the last year, have y ou been raped or forced to have any kind of sexual activity by your partner or ex-partner? No 12/31/2023 Social Connection and Isolat ion Panel [NHANES] Answer Date Recorded In a typical week, how many times do you talk on the phone with family, friends, or neighbors? More than three times a week 12/31/2023 How often do you get togethe r with friends or relatives? More than three times a week 12/31/2023 How often do you attend chur ch or congregation services? Never 12/31/2023 Do you belong to any clubs o r organizations such as mandaen groups, unions, fraternal or athletic groups, or school groups? No 12/31/2023 How often do you attend meet ings of the clubs or organizations you belong to? Never 12/31/2023 Are you , , di vorced, , never , or living with a partner? 12/31/2023 AUDIT-C Answer Date Recorded Q1: How often do you have a drink containing alcohol? Never 12/31/2023 Q2: How many drinks containi ng alcohol do you have on a typical day when you are drinking? Patient does not drink Q3: How often do you have si x or more drinks on one occasion? Never 12/31/2023 Overall Financial Resource Strain (CARDIA) Answe r Date Recorded How hard is it for you to pa y for the very basics like food, housing, medical care, and heating? Not hard at all 12/31/2023 PHQ-2 Answer Date Recorded Patient Health Questionnaire-2 Score 0 05/13/2024 [facility] - Occupational Stress Questionnaire Answer Date Recorded Do you feel stress - tense, restless, nervous, or anxious, or unable to sleep at night because your mind is troubled all the time - these days? To some extent 12/31/2023 Exercise Vital Sign Answer Date Recorde d On average, how many days pe r week do you engage in moderate to strenuous exercise (like a brisk walk)? 0 days 12/31/2023 On average, how many minutes do you engage in exercise at this level? 0 min 12/31/2023 Hunger Vital Sign Answer Date Recorded Within the past 12 months, y ou worried that your food would run out before you got the money to buy more. Never true 12/31/19 24 Within the past 12 months, t he food you bought just didn't last and you didn't have money to get more. Never true 12/31/2023 PRAPARE - Transportation Answer Date Re corded In the past 12 months, has l ack of transportation kept you from medical appointments or from getting medications? No 11/2023 In the past 12 months, has l ack of transportation kept you from meetings, work, or from getting things needed for daily living? No 12/31/2023 Housing Stability Vital Sign Answer Alfredo e Recorded In the last 12 months, was t here a time when you were not able to pay the mortgage or rent on time? No 12/31/2023 In the past 12 months, how m any times have you moved where you were living? 1 12/31/2023 At any time in the past 12 m [facility], were you homeless or living in a fdc (including now)? No 12/31/2023 Sex and Gender Information Value Date Recorded Sex Assigned at Not on file Legal Sex Male 7:16 PM EDT Gender Identity Not on file Sexual Orientation Not on file documented as of this encounter Last Filed Vital Signs Vital Sign Reading Time Taken Comments Blood Pressure 98/68 10/14/2024 3:01 PM EDT Pulse - - Temperature - - Respiratory Rate - - Oxygen Saturation - - Inhaled Oxygen Concentration - - Weight - - Height - - Body Mass Index - - documented in this encounter Progress Notes * Stanley Toledo MD - 10/14/2024 2:30 PM EDT Images from the original note were not included. Patient ID: Bebeto Anderson is a 78 y.o. male who presents for: Flowsheet Row Patient Outreach from 10/06/2024 in [facility] with Joi Zhang LPN Hospital Information ED, Hospital or Mcfp Facility Discharge? Hospital Patient has been contacted within two business days of discharge Yes Diagnosis Community acquired pneumonia of lower lobe of lung , Lower extremity edema Edema, Delirium due to another medical condition Discharge Date 10/05/24 Discharged To: Home Setting Discharge Hospital [facility] Engagement Call Start Time 1207 Admission Date 10/02/24 Medications Discharge medications reviewed and reconciled from hospital? Yes Is the patient having any side effects they believe may be caused by any medication additions or changes? No Does the patient have all medications ordered at discharge? Yes Nursing Interventions No intervention needed Is the patient taking all medications as directed (includes completed medication regime)? Yes Medication Comments satrted on Bactrim, Seroquel, and Exalon patch Appointments Does the patient have a primary care provider? Yes [scheduled 10/14] Nursing Interventions Verified appointment date/time/provider Does the patient have any upcoming specialty appointments? Yes [10/08 Director Industrial Relations, 10/11 outpatientsurgery for aortic aneuysm left knee] Self Management Does patient have home health? yes What is the home health agency? [facility] Has home health visited the patient within 72 hours of discharge? Yes Patient Teaching Does the patient have access to their discharge instructions? Yes Nursing Interventions Reviewed instructions with patient What is the patient's perception of their health status since discharge? Improving Is the patient/caregiver able to teach back the hierarchy of who to call/visit for symptoms/problems? PCP, Specialist, Home Health nurse, Urgent Care, ED, 911 Yes Wrap Up Wrap Up Additional Comments CT scan, Chest X-ray, Doppler US leg, labs completed in ER and Hospital. Pt arrived to [facility] ER d/t [facility] crisis line stating to go because of pts increased delusions, hallucinations, and suicidal ideation. found pocket knife on pt as well. Pt transferred to [facility]. Pt positive for metapneumovirus, Urine cultures came back positive for Klebsiella and Enteroba cter cloacae. Pt is to Follow-up with psychiatry and neurology for further psychiatric assessment and cognitive evaluations. Follow-up with vascular surgeon regarding holding Plavix. Call End Time 1229 The patient has with them today and independent historian; his . The independent historian is here to ensure that the information related to us in the HPI and review of systems is accurate. Theyare also here to help the patient to understand and follow through with treatment plans establishedtoday. He also has hearing impairment in his able to read her lips. He has never wanted any referrals or other assistance associated with his hearing loss. Review of Systems She notes increased confusion, delusions, and hallucinations. Seeing people and things that are notactually there. Objective The patient is pleasant and in no acute distress The patient has good eye contact and clear speech He has no signs of respiratory distress. When he does speak he can speak full sentences. For him his breath sounds are actually fairly symmetrical although decreased diffusely. No specific rhonchi orevaluated today and no specific wheezing is noted. 10/06/2023 4:22 PM 11/19/2023 11:19 AM 01/29/2024 1:36 PM 02/17/2024 11:52 AM 03/18/2024 11:18 AM 05/13/2024 2:38 PM 09/21/2024 2:08 PM Vitals BMI 28.63 kg/m2 28.63 kg/m2 28.63 kg/m2 28.63 kg/m2 28.63 kg/m2 26.06 kg/m2 26.06 kg/m2 BSA (m2) 2.3 m2 2.3 m2 2.3 m2 2.3 m2 2.3 m2 2.19 m2 2.19 m2 Systolic 126 118 122 Diastolic 72 70 74 Heart Rate 73 85 82 77 SpO2 98 % 99 % 97 % 97 % Height (in) 6' 2 6' 2 6' 2 6' 2 6' 2 6' 2 6' 2 Weight (lb) 223 223 223 223 223 203 203 Visit Report Report Report Report Report Report Report Report No Known Allergies Current Outpatient Medications on File Prior to Visit Medication Sig Dispense Refill albuterol HFA 90 mcg/act inhaler Inhale 2 puffs every 6 (six) hours if needed for wheezing 54 g 1 amiodarone (Pacerone) 200 MG tablet Take 200 mg by mouth Daily ARIPiprazole (Abilify) 2 MG tablet Take 0.5 tablets (1 mg) by mouth at bedtime (Patient not taking:Reported on 10/06/2024) 15 tablet 0 atorvastatin (Lipitor) 80 MG tablet Take 80 [...] 40 mg by mouth in the morning. methIMAzole (Tapazole) 5 MG tablet Take 1 tablet (5 mg) by mouth in the morning and 1 tablet (5 mg)before bedtime. 60 tablet 11 metoprolol succinate XL (Toprol-XL) 25 MG 24 hr tablet Take 25 mg by mouth in the morning. Multiple Vitamins-Minerals (Multivitamin Gummies Mens) chewable tablet Chew 1 tablet Daily nitroglycerin (Nitrostat) 0.[address] 0.4 mg under the tongue every 5 (five) minutes if needed for chest pain potassium chloride CR (Klor-Con M20) 20 MEQ ER tablet Take 20 mEq by mouth in the morning. QUEtiapine (SEROquel) 25 MG tablet Take 25 mg by mouth at bedtime rivastigmine (Exelon) 4.6 MG/24HR Place 1 patch on the skin Daily Spacer/Aero-Holding Chambers (BreatheRite Dulce Spacer Adult) misc 2 puffs 4 (four) times a day as needed (sob and cough) 1 each 0 sulfamethoxazole-trimethoprim (Bactrim DS) 800-160 MG per tablet Take 1 tablet by mouth Daily warfarin (Coumadin) 2 MG tablet Take 2 mg by mouth 1 (one) time each day 5 days a week (Friday, Friday, Friday, Friday and Friday) warfarin (Coumadin) 2 MG tablet Take 1 mg by mouth 1 (one) time each day 2 days a week (Friday and ) [DISCONTINUED] cephalexin (Keflex) 250 MG capsule Take 250 mg by mouth in the morning. (Patient taking differently: Take 250 mg by mouth 3 (three) times a week) Current Facility-Administered Medications on File Prior to Visit Medication Dose Route Frequency Provider Last Rate Last Admin [DISCONTINUED] ferrous sulfate tablet 325 mg Oral Daily with breakfast Generic External Data Provider [DISCONTINUED] GENERIC EXTERNAL MEDICATION Generic External Data Provider [DISCONTINUED] GENERIC EXTERNAL MEDICATION Generic External Data Provider [DISCONTINUED] GENERIC EXTERNAL MEDICATION Generic External Data Provider [DISCONTINUED] GENERIC EXTERNAL MEDICATION Generic External Data Provider [DISCONTINUED] GENERIC EXTERNAL MEDICATION Generic External Data Provider [DISCONTINUED] GENERIC EXTERNAL MEDICATION Generic External Data Provider [DISCONTINUED] GENERIC EXTERNAL MEDICATION Generic External Data Provider [DISCONTINUED] GENERIC EXTERNAL MEDICATION Generic External Data Provider [DISCONTINUED] GENERIC EXTERNAL MEDICATION Generic External Data Provider [DISCONTINUED] melatonin tablet 3 mg Oral Nightly PRN Generic External Data Provider [DISCONTINUED] rivastigmine (Exelon) 4.6 MG/24HR 1 patch Transdermal Generic External Data Provider [DISCONTINUED] warfarin (Coumadin) tablet 2 mg Oral Generic External Data Provider 1. Pneumonia of left lower lobe due to infectious organism Acute problem that is resolving. No new treatment. Continue breathing treatments. 2. Encounter for examination following treatment at hospital This visit is prompted as a transition of care. The patient has been contacted by phone within 2 business days of discharge or at least 2 unsuccessful attempts were made to contact the patient within the 2 business days. Any available documents including; emergency room note, visit notes, consults, and discharge summary or continuity of care documents were reviewed. Any laboratory investigation or diagnostic imaging that was ordered by outside physicians and available was obtained and reviewed. The transition of care note is reviewed. a [id number] evaluation is done today. Medical decision making is complex in degree. 3. Lower extremity edema Chronic problem, stable, we will monitor at this time. 4. Delirium due to another medical condition Chronic problem that is currently stable and manageable. It was worse when he was acutely ill. No further adjustments. documented in this encounter Plan of Treatment Upcoming Encounters Date Type Department Care Team (Late st Contact Info) Description 11/09/2024 2:00 PM EDT Office Visit [facility] [address] [place] [address] Stanley Toledo MD 112 [facility] 100 [place] [address] documented as of this encounter Visit Diagnoses Diagnosis Pneumonia of left lower lobe due to infectious organism Encounter for examination following treatment at hospital Lower extremity edema Edema Delirium due to another medical condition documented in this encounter Additional Health Concerns Assessment Noted Time PHQ-9 Depression Total Score: 3 05/13/20 24 2:00 PM EST A fall risk assessment has been complete d for the patient 12/31/2023 8:54 AM EDT documented as of this encounter Care Teams Commercial Light Fixture Assembler Relationship Specialty Start Date End Date Stanley Toledo MD 112 [facility] 100 [place] [address] PCP - ACO Reach 10/17/22 Stanley Toledo MD [address] [address] PCP - General Family Medicine 11/20/22 Joi Zhang LPN 08/26/24 documented as of this encounter
--- OUTSIDE RECORDS SUMMARY | 2024-10-27 11:25 | XMS_ITS | Encounter Summary ---
Author Organization [facility] Address [address] [place] [address] Care Team Providers Care Analytical Chemist Name Role Phone Stanley Toledo MD Unavailable [phone] Stanley Toledo MD Primary Care Provider + [phone] Dora Santiago CENTRAL SCHEDULER Unavailable Christina Goddard CENTRAL SCHEDULER Unavailable Unavailable Joi Zhang CENTRAL SCHEDULER Unavailable Unavailable Encounter Details Date Type Department Care Team ([facility] Contact Info) Description 12/17/2022 Abstract [facility] [address] [place] [address] Stanley Toledo MD [address] [address] (Fax) Social History Tobacco Use Types Packs/Day Years Used Date Smoking Tobacco: Former Cigarettes Sex and Gender Information Value Date Recorded Sex Assigned at Not on file Legal Sex Male 7:16 PM EDT Gender Identity Not on file Sexual Orientation Not on file COVID-19 Exposure Response Date Recorded In the last 10 days, have yo u been in contact with someone who was confirmed or suspected to have Coronavirus/COVID-19? No / Unsure 12/17/2022 1:42 PM EDT documented as of this encounter Plan of Treatment Upcoming Encounters Date Type Department Care Team ([facility] Contact Info) Description 11/09/2024 2:00 PM EDT Office Visit [facility] 100 112 [facility] 100 [place] [address] Stanley Toledo MD 112 [facility] 100 [place] [address] (Fax) documented as of this encounter Visit Diagnoses Not on filedocumented in this encounter Care Teams Analytical Chemist Relationship Specialty Start Date End Date Stanley Toledo MD 112 [facility] [address] [place] [address] PCP - ACO Reach 10/17/22 Stanley Toledo MD [address] [place] [address] [address] PCP - General Family Medicine 11/20/22 Dora Santiago LPN Licensed Practical Nurse Family Medicine 12/22/2308/26 Christina Goddard LPN Licensed Practical Nurse Family Medicine 12/25/23 Joi Zhang LPN 08/26/24 documented as of this encounter
--- OUTSIDE RECORDS SUMMARY | 2024-10-27 11:25 | XMS_ITS | Encounter Summary ---
Author Organization [facility] Address [address] [place] [address] Phone Care Team Providers Care Burner Operator Name Role Phone Stanley Toledo MD Primary Care Provider Ruby Vickers MD Unavailable Encounter Details Date Type Department Care Team (Late st Contact Info) Description 08/26/2024 Scanned Document [facility] [address] [place] [address] Scanning, Generic Provider Social History Tobacco Use Types Packs/Day Years Used Date Smoking Tobacco: Former Cigarettes Smokeless Tobacco: Never Alcohol Use Standard Drinks/Week Comments Never 0 (1 standard drink = 0.6 oz pur e alcohol) Sex and Gender Information Value Date Recorded Sex Assigned at Not on file Legal Sex Male 5:17 PM EST Gender Identity Not on file Sexual Orientation Not on file COVID-19 Exposure Response Date Recorded In the last 10 days, have yo u been in contact with someone who was confirmed or suspected to have Coronavirus/COVID-19? No / Unsure 08/06/2024 10:28 AM EDT documented as of this encounter Plan of Treatment Upcoming Encounters Date Type Department Care Team (Late st Contact Info) Description 03/29/2025 11:00 AM EST Office Visit [facility] 7[address] [facility] [address] [place] [address] Teo Stokes MD 703 [facility] [address] [place] [address] documented as of this encounter Procedures Procedure Name Priority Date/Time Associated Diagnosis Comments OUTSIDE LAB SCAN 08/26/2024 documented in this encounter Results * OUTSIDE LAB SCAN (08/26/2024) Narrative 08/26/2024 Ordered by an unspecified provider. us Generic Provider Scanning OUTSIDE SCAN Final Result documented in this encounter Visit Diagnoses Not on filedocumented in this encounter Additional Health Concerns Assessment Noted Time A fall risk assessment has been complete d for the patient 02/10/2024 9:14 AM EDT documented as of this encounter Care Teams Burner Operator Relationship Specialty Start Date End Date Stanley Toledo MD [address] [place] [address] PCP - General 05/17/22 Ruby Vickers MD [address] [facility] [address] [place] [address] Hay Stacker Electrophysiology 10/04/24 documented as of this encounter
--- OUTSIDE RECORDS SUMMARY | 2024-10-27 11:25 | XMS_ITS | Encounter Summary ---
Author Organization [facility] Address [address] [place] [address] Care Team Providers Care Assembler Corncob Pipes Name Role Phone Stanley Toledo MD Unavailable [phone] Stanley Toledo MD Primary Care Provider + [phone] Dora Santiago ELECTRONIC PAGINATION SYSTEM OPERATOR Unavailable Christina Goddard ELECTRONIC PAGINATION SYSTEM OPERATOR Unavailable Unavailable Joi Zhang ELECTRONIC PAGINATION SYSTEM OPERATOR Unavailable Unavailable Encounter Details Date Type Department Care Team (Late Contact Info) Description 05/13/2023 Abstract [facility] [address] [place] [address] Audrey Topete, ROCIO Social History Tobacco Use Types Packs/Day Years Used Date Smoking Tobacco: Former Cigarettes Smokeless Tobacco: Never Alcohol Use Standard Drinks/Week Comments Not Currently 0 (1 standard drink = 0.6 oz pur e alcohol) PHQ-2 Answer Date Recorded Patient Health Questionnaire-2 Score 0 05/12/2023 Sex and Gender Information Value Date Recorded Sex Assigned at Not on file Legal Sex Male 7:16 PM EDT Gender Identity Not on file Sexual Orientation Not on file documented as of this encounter Plan of Treatment Upcoming Encounters Date Type Department Care Team (Late Contact Info) Description 11/09/2024 2:00 PM EDT Office Visit [facility] 112 [facility] 100 [place] [address] Stanley Toledo MD 112 [facility] [address] [place] [address] documented as of this encounter Visit Diagnoses Not on filedocumented in this encounter Additional Health Concerns Assessment Noted Time PHQ-9 Depression Total Score: 3 05/12/20 1:00 PM EST documented as of this encounter Care Teams Assembler Corncob Pipes Relationship Specialty Start Date End Date Stanley Toledo MD [address] [place] [address] PCP - ACO Reach 10/17/22 Stanley Toledo MD [address] [place] [address] PCP - General Family Medicine 11/20/22 Dora Santiago LPN Licensed Practical Nurse Family Medicine 12/22/2308/26 Christina Goddard LPN Licensed Practical Nurse Family Medicine 12/25/23 Joi Zhang LPN 08/26/24 documented as of this encounter
--- OUTSIDE RECORDS SUMMARY | 2024-10-27 11:25 | XMS_ITS | Encounter Summary ---
Author Organization [facility] Address [address] [place] [address] Care Team Providers Care Director Of Vocational Guidance Name Role Phone Stanley Toledo MD Unavailable [phone] Stanley Toledo MD Primary Care Provider + [phone] Dora Santiago LPN Unavailable Joi Zhang LPN Unavailable Unavailable Encounter Details Date Type Department Care Team (Late st Contact Info) Description 05/25/2024 Clinisync Result Encounter [facility] External Department Unsolicited Provider, Generic External Data Social History Tobacco Use Types Packs/Day Years [...] often do you attend chur ch or yazdanism services? Never 12/31/2023 Do you belong to any clubs o r organizations such as anabaptism groups, unions, fraternal or athletic groups, or [...] Recorded Patient Health Questionnaire-2 Score 0 05/13/2024 [facility] - Occupational Stress Questionnaire Answer Date Recorded [...] any time in the past 12 m [facility], were you homeless or living in a intermediate (including now)? No 12/31/2023 Sex and Gender [...] Office Visit [facility] 112 [facility] [address] [place] [address] Stanley Toledo MD 112 [facility] [address] [place] [address] documented as of this encounter Procedures Procedure Name Priority Date/Time Associated Diagnosis Comments ITP 05/25/2024 7:54 AM EST documented in this encounter Results * ITP (05/25/2024 7:54 AM EST) Anatomical Region Laterality Modality Other 05/25/2024 7:54 AM EST Narrative 05/26/2024 8:06 AM EST The [address] [address] Cardiac Rehab Report Signed Patient: ALEX GRAJEDA MR#: [id number] : 1945 Acct:[id number] Age/Sex: 78 / M ADM Date: 05/25/24 Loc: CR Attending Dr: MAGDY AL Ordering Physician: Arnol Garnica D.O. Date of Service: 05/25/24 Procedure(s): ITP Accession Number(s): [id number] cc: [facility] Test Date: 2024-05-25 Pat Name: ALEX GRAJEDA Department: Room: - Gender: Male Pound Attendant: : 1945 Requested By: ARNOL GARNICA Order Number: [id number] Silverio MD: ARNOL GARNICA Interpretive Statements Session Date: Electronically Signed On 05-26-2024 8:06:21 EST by ARNOL GARNICA Dictated By: Arnol Garnica D.O. Signed By: 05/26/24 0805/26/24805 DD/ 075 TD/TT: Biomass Power Plant Superintendent: Procedure Note Radiology, Radiologist, - 05/26/2024 [place] [address] Cardiac Rehab Report Signed Patient: ALEX GRAJEDA HMR#: [id number] : 1945cct:[id number] Age/Sex: 78 / MADM Date: 05/25/24 Loc: CR Attending Dr: MAGDY AL Ordering Physician: Arnol Garnica D.O. Date of Service: 05/25/24 Procedure(s): ITP Accession Number(s): [id number] cc: [facility] Test Date: 2024-05-25 Pat Name: ALEX GRAJEDA Department: Room: - Gender: Male Pound Attendant: : 1945 Requested By: ARNOL GARNICA Order Number: [id number] Silverio MD: ARNOL GARNICA Interpretive Statements Session Date: Electronically Signed On 05-26-2024 8:06:21 EST by ARNOL GARNICA Dictated By: Arnol Garnica D.O. Signed By:05/26/24 0805/26/24805 DD/ 075 TD/TT: Biomass Power Plant Superintendent: us Generic External Data Provider [facility] Final Result documented in this encounter Visit Diagnoses Not on filedocumented in this encounter Additional Health Concerns Assessment Noted Time PHQ-9 Depression Total Score: 3 05/13/20 24 2:00 PM EST A fall risk assessment has been complete d for the patient 12/31/2023 8:54 AM EDT documented as of this encounter Care Teams Director Of Vocational Guidance Relationship Specialty Start Date End Date Stanley Toledo MD [address] [place] [address] PCP - ACO Reach 10/17/22 Stanley Toledo MD [address] [place] [address] PCP - General Family Medicine 11/20/22 Dora Santiago LPN Licensed Practical Nurse Family Medicine 12/22/2308/26 Joi Zhang LPN 08/26/24 documented as of this encounter
--- OUTSIDE RECORDS SUMMARY | 2024-10-27 11:25 | XMS_ITS | Encounter Summary ---
Author Organization [facility] Address [address] [place] [address] Care Team Providers Care Vocational Rehabilitation Supervisor Name Role Phone Stanley Toledo MD Unavailable [phone] Stanley Toledo MD Primary Care Provider + [phone] Dora Santiago FIRST DYER Unavailable Christina Goddard FIRST DYER Unavailable Unavailable Joi Zhang FIRST DYER Unavailable Unavailable Encounter Details Date Type Department Care Team ([facility] Contact Info) Description 12/11/2022 Abstract [facility] [address] [place] [address] Stanley Toledo MD [address] [address] (Fax) Social History Tobacco Use Types Packs/Day Years Used Date Smoking Tobacco: Never Assessed Sex and Gender Information Value Date Recorded Sex Assigned at Not on file Legal Sex Male 7:16 PM EDT Gender Identity Not on file Sexual Orientation Not on file documented as of this encounter Plan of Treatment Upcoming Encounters Date Type Department Care Team (Late Contact Info) Description 11/09/2024 2:00 PM EDT Office Visit [facility] [address] [address] Stanley Toledo MD [address] [address] (Fax) documented as of this encounter Visit Diagnoses Not on filedocumented in this encounter Care Teams Vocational Rehabilitation Supervisor Relationship Specialty Start Date End Date Stanley Toledo MD 112 [facility] 100 [place] [address] PCP - ACO Reach 10/17/22 Stanley Toledo MD 112 [facility] 100 [place] [address] PCP - General Family Medicine 11/20/22 Dora Santiago LPN Licensed Practical Nurse Family Medicine 12/22/2308/26 Christina Goddard LPN Licensed Practical Nurse Family Medicine 12/25/23 Joi Zhang LPN 08/26/24 documented as of this encounter
--- OUTSIDE RECORDS SUMMARY | 2024-10-27 11:25 | XMS_ITS | Encounter Summary ---
Author Organization [facility] Address [address] [place] [address] Phone Care Team Providers Care Retail Advertising Account Executive Name Role Phone Stanley Toledo MD Primary Care Provider Ruby Vickers MD Unavailable Encounter Details Date Type Department Care Team (Late st Contact Info) Description 10/07/[address] [facility] [address] [place] [address] Scanning, Generic Provider Social History [...] suspected to have Coronavirus/COVID-19? No / Unsure 10/08/2024 2:26 PM EDT documented as of this encounter Plan of Treatment Upcoming Encounters Date Type Department Care Team (Late st Contact Info) Description 03/29/2025 11:00 AM EST Office Visit [facility] 703 [facility] 250 [place] [address] Teo Stokes MD 703 [facility] 2, [address] [place] [address] documented as of this encounter Procedures Procedure Name Priority Date/Time Associated Diagnosis Comments OUTSIDE LAB SCAN 10/07/2024 documented in this encounter Results * OUTSIDE LAB SCAN (10/07/2024) Narrative 10/07/2024 Ordered by an unspecified provider. us Generic Provider Scanning OUTSIDE SCAN Final Result documented in this encounter Visit Diagnoses Not on filedocumented in this encounter Additional Health Concerns Assessment Noted Time A fall risk assessment has been complete d for the patient 09/10/2024 9:37 AM EDT documented as of this encounter Care Teams Retail Advertising Account Executive Relationship Specialty Start Date End Date Stanley Toledo MD [address] [place] [address] PCP - General 05/17/22 Ruby Vickers MD [address] [facility] Medical Office Bldg, [address] [place] [address] Electrical Automation Engineer Electrophysiology 10/04/24 documented as of this encounter
--- OUTSIDE RECORDS SUMMARY | 2024-10-27 11:25 | XMS_ITS | Encounter Summary ---
Author Organization [facility] Address [address] [place] [address] Phone Care Team Providers Care Survey Questionnaire Designer Name Role Phone Stanley Toledo MD Primary Care Provider Ruby Vickers MD Unavailable Encounter Details Date Type Department Care Team (Late st Contact Info) Description 09/02/2024 Scanned Document [facility] [address] [place] [address] Scanning, Generic Provider Social History [...] Description 03/29/2025 11:00 AM EST Office Visit [facility] 703 [facility] [address] [place] [address] Teo Stokes MD 703 [facility] 2, [address] [place] [address] documented as of this encounter Procedures Procedure Name Priority Date/Time Associated Diagnosis Comments OUTSIDE LAB SCAN 09/02/2024 OUTSIDE LAB SCAN 09/02/2024 documented in this encounter Results * OUTSIDE LAB SCAN (09/02/2024) Narrative 09/02/2024 Ordered by an unspecified provider. us Generic Provider Scanning OUTSIDE SCAN Final Result * OUTSIDE LAB SCAN (09/02/2024) Narrative 09/02/2024 Ordered by an unspecified provider. us Generic Provider Scanning OUTSIDE SCAN Final Result documented in this encounter Visit Diagnoses Not on filedocumented in this encounter Additional Health Concerns Assessment Noted Time A fall risk assessment has been complete d for the patient 02/10/2024 9:14 AM EDT documented as of this encounter Care Teams Survey Questionnaire Designer Relationship Specialty Start Date End Date Stanley Toledo MD [address] [place] [address] PCP - General 05/17/22 Ruby Vickers MD [address] [facility] Medical Office Bldg, [address] [place] [address] Real Estate Operations Manager Electrophysiology 10/04/24 documented as of this encounter
--- OUTSIDE RECORDS SUMMARY | 2024-10-27 11:25 | XMS_ITS | Encounter Summary ---
Author Organization [facility] Address [address] [place] [address] Care Team Providers Care Gyn Name Role Phone Stanley Toledo MD Unavailable [phone] Stanley Toledo MD Primary Care Provider + [phone] Dora Santiago FRONT OFFICE DEVELOPER Unavailable Christina Goddard FRONT OFFICE DEVELOPER Unavailable Unavailable Joi Zhang FRONT OFFICE DEVELOPER Unavailable Unavailable Encounter Details Date Type Department Care Team (Late Contact Info) Description 12/17/2022 Orders Only [facility] [address] [place] [address] Stanley Toledo MD 112 [facility] 100 [place] [address] (Fax) Social History Tobacco Use Types Packs/Day Years Used Date Smoking Tobacco: Former Cigarettes Sex and Gender Information Value Date Recorded Sex Assigned at Not on file Legal Sex Male 7:16 PM EDT Gender Identity Not on file Sexual Orientation Not on file COVID-19 Exposure Response Date Recorded In the last 10 days, have mona u been in contact with someone who was confirmed or suspected to have Coronavirus/COVID-19? No / Unsure 12/17/2022 1:42 PM EDT documented as of this encounter Plan of Treatment Upcoming Encounters Date Type Department Care Team (Late Contact Info) Description 11/09/2024 2:00 PM EDT Office Visit [facility] 112 [facility] 100 [place] [address] Stanley Toledo MD 112 [facility] 100 [place] [address] (Fax) documented as of this encounter Procedures Procedure Name Priority Date/Time Associated Diagnosis Comments CYTOLOGY, URINE Routine 12/17/2022 1:31 PM EDT CYTOLOGY, URINE Routine 12/17/2022 1:30 PM EDT documented in this encounter Results * Cytology, urine (12/17/2022 1:31 PM EDT) Urine Urine specimen obtained by clean catch procedure / Unknown Stanley Toledo MD LAB CYTOLOGY ORDERABLES Tiara l Result * Cytology, urine (12/17/2022 1:30 PM EDT) Urine Urine specimen obtained by clean catch procedure / Unknown Stanley Toledo MD LAB CYTOLOGY ORDERABLES Tiara l Result documented in this encounter Visit Diagnoses Not on filedocumented in this encounter Care Teams Gyn Relationship Specialty Start Date End Date Stanley Toledo MD [address] [address] PCP - ACO Reach 10/17/22 Stanley Toledo MD [address] [address] PCP - General Family Medicine 11/20/22 Dora Santiago LPN Licensed Practical Nurse Family Medicine 12/22/2308/26 Christina Goddard LPN Licensed Practical Nurse Family Medicine 12/25/23 Joi Zhang LPN 08/26/24 documented as of this encounter
--- OUTSIDE RECORDS SUMMARY | 2024-10-27 11:25 | XMS_ITS | Encounter Summary ---
Author Organization [facility] Address [address] [place] [address] Phone Care Team Providers Care Oil Treater Name Role Phone Stanley Toledo MD Primary Care Provider [phone] Ruby Vickers MD Unavailable Encounter Details Date Type Department Care Team (Late Contact Info) Description 10/19/[address] [address] Leanne Soriano LPN Social History Tobacco Use Types Packs/Day Years [...] PM EDT documented as of this encounter Miscellaneous Notes * Telephone Encounter - Leanne Soriano LPN - 10/19/2024 2:06 PM EDT Patient's phoned that they have cancelled ICD placement procedure with Dr. Vickers due to the patient's advanced dementia. FYI. documented in this encounter Plan of Treatment Upcoming Encounters Date Type Department Care Team (Late Contact Info) Description 03/29/2025 11:00 AM EST Office Visit [facility] 703 [facility] [address] [place] [address] Teo Stokes MD 703 [facility], [address] [place] [address] documented as of this encounter Visit Diagnoses Not on filedocumented in this encounter Additional Health Concerns Assessment Noted Time A fall risk assessment has been complete d for the patient 09/10/2024 9:37 AM EDT documented as of this encounter Care Teams Oil Treater Relationship Specialty Start Date End Date Stanley Toledo MD [address] [place] [address] PCP - General 05/17/22 Ruby Vickers MD [address] [facility] Medical Office Bldg, [address] [place] [address] Folded Towel Machine Operator Electrophysiology 10/04/24 documented as of this encounter
--- OUTSIDE RECORDS SUMMARY | 2024-10-27 11:25 | XMS_ITS | Encounter Summary ---
Author Organization [facility] Address [address] [place] [address] Care Team Providers Care Grading Machine Feeder Name Role Phone Stanley Toledo MD Unavailable [phone] Stanley Toledo MD Primary Care Provider + [phone] Dora Santiago INSPECTOR PLATING Unavailable Christina Goddard INSPECTOR PLATING Unavailable Unavailable Joi Zhang INSPECTOR PLATING Unavailable Unavailable Encounter Details Date Type Department Care Team (Late Contact Info) Description 06/11/2023 Abstract [facility] [address] [place] [address] Stanley Toledo MD [address] [address] Social History Tobacco Use Types Packs/Day Years [...] Office Visit [facility] 100 112 [facility] 100 [place] [address] Stanley Toledo MD 112 [facility] 100 [place] [address] (Fax) documented as of this encounter Visit Diagnoses Not on filedocumented in this encounter Additional Health Concerns Assessment Noted Time PHQ-9 Depression Total Score: 3 05/12/20 23 1:00 PM EST documented as of this encounter Care Teams Grading Machine Feeder Relationship Specialty Start Date End Date Stanley Toledo MD [address] [place] [address] PCP - ACO Reach 10/17/22 Stanley Toledo MD [address] [facility] 100 [place] [address] PCP - General Family Medicine 11/20/22 Dora Santiago LPN Licensed Practical Nurse Family Medicine 12/22/2308/26 Christina Goddard LPN Licensed Practical Nurse Family Medicine 12/25/23 Joi Zhang LPN 08/26/24 documented as of this encounter
--- OUTSIDE RECORDS SUMMARY | 2024-10-27 11:25 | XMS_ITS | Encounter Summary ---
Author Organization [facility] Address [address] [place] [address] Care Team Providers Care Ordnance Mechanic Name Role Phone Stanley Toledo MD Unavailable [phone] Stanley Toledo MD Primary Care Provider + [phone] Dora Santiago MOVING WORKER Unavailable Christina Goddard MOVING WORKER Unavailable Unavailable Joi Zhang MOVING WORKER Unavailable Unavailable Encounter Details Date Type Department Care Team ([facility] Contact Info) Description 10/22/2022 Abstract [facility] [address] [place] [address] Stanley Toledo MD [address] [address] (Fax) Social History Tobacco Use Types Packs/Day [...] Office Visit [facility] [address] [address] Stanley Toledo MD [address] [address] (Fax) documented as of this encounter Visit Diagnoses Not on filedocumented in this encounter Care Teams Ordnance Mechanic Relationship Specialty Start Date End Date Stanley Toledo MD 112 [facility] 100 [place] [address] PCP - ACO Reach 10/17/22 Stanley Toledo MD 112 [facility] 100 [place] [address] PCP - General Family Medicine 11/20/22 Dora Santiago LPN Licensed Practical Nurse Family Medicine 12/22/2308/26 Christina Goddard LPN Licensed Practical Nurse Family Medicine 12/25/23 Joi Zhang LPN 08/26/24 documented as of this encounter
--- OUTSIDE RECORDS SUMMARY | 2024-10-27 11:25 | XMS_ITS | Encounter Summary ---
Author Organization [facility] Address [address] [place] [address] Care Team Providers Care Hospital Pharmacist Name Role Phone Stanley Toledo MD Unavailable [phone] Stanley Toledo MD Primary Care Provider + [phone] Dora Santiago TITLE OFFICER Unavailable Christina Goddard TITLE OFFICER Unavailable Unavailable Joi Zhang TITLE OFFICER Unavailable Unavailable Encounter Details Date Type Department Care Team (Late Contact Info) Description 05/13/2023 Abstract [facility] [address] [place] [address] Stanley Toledo MD [address] [address] Social History Tobacco Use Types Packs/Day Years [...] Office Visit [facility] 100 112 [facility] 100 [place] [address] Stanley Toledo MD 112 [facility] 100 [place] [address] (Fax) documented as of this encounter Visit Diagnoses Not on filedocumented in this encounter Additional Health Concerns Assessment Noted Time PHQ-9 Depression Total Score: 3 05/12/20 23 1:00 PM EST documented as of this encounter Care Teams Hospital Pharmacist Relationship Specialty Start Date End Date Stanley Toledo MD [address] [place] [address] PCP - ACO Reach 10/17/22 Stanley Toledo MD 112 [facility] 100 [place] [address] PCP - General Family Medicine 11/20/22 Dora Santiago LPN Licensed Practical Nurse Family Medicine 12/22/2308/26 Christina Goddard LPN Licensed Practical Nurse Family Medicine 12/25/23 Joi Zhang LPN 08/26/24 documented as of this encounter
--- OUTSIDE RECORDS SUMMARY | 2024-10-27 11:25 | XMS_ITS | Encounter Summary ---
Author Organization [facility] Address [address] [place] [address] Care Team Providers Care Customer Loyalty Representative Name Role Phone Stanley Toledo MD Unavailable [phone] Stanley Toledo MD Primary Care Provider + [phone] Dora Santiago END POLISHER Unavailable Christina Goddard END POLISHER Unavailable Unavailable Joi Zhang END POLISHER Unavailable Unavailable Encounter Details Date Type Department Care Team ([facility] Contact Info) Description 12/10/2022 Abstract [facility] [address] [place] [address] Stanley Toledo MD [address] [address] (Fax) Social History Tobacco Use Types Packs/Day [...] Office Visit [facility] [address] [address] Stanley Toledo MD [address] [address] (Fax) documented as of this encounter Visit Diagnoses Not on filedocumented in this encounter Care Teams Customer Loyalty Representative Relationship Specialty Start Date End Date Stanley Toledo MD 112 [facility] 100 [place] [address] PCP - ACO Reach 10/17/22 Stanley Toledo MD 112 [facility] 100 [place] [address] PCP - General Family Medicine 11/20/22 Dora Santiago LPN Licensed Practical Nurse Family Medicine 12/22/2308/26 Christina Goddard LPN Licensed Practical Nurse Family Medicine 12/25/23 Joi Zhang LPN 08/26/24 documented as of this encounter
--- OUTSIDE RECORDS SUMMARY | 2024-10-27 11:25 | XMS_ITS | Encounter Summary ---
Author Organization [facility] Address [address] [place] [address] Care Team Providers Care Client Technical Support Associate Name Role Phone Stanley Toledo MD Unavailable [phone] Stanley Toledo MD Primary Care Provider + [phone] Dora Santiago LEASING REPRESENTATIVE Unavailable Christina Goddard LEASING REPRESENTATIVE Unavailable Unavailable Joi Zhang LEASING REPRESENTATIVE Unavailable Unavailable Encounter Details Date Type Department Care Team (Late Contact Info) Description 06/17/2023 Abstract [facility] [address] [place] [address] Stanley Toledo MD [address] [address] Social History Tobacco Use Types Packs/Day Years [...] [facility] 100 [place] [address] Stanley Toledo MD 112 [facility] 100 [place] [address] (Fax) documented as of this encounter Visit Diagnoses Not on filedocumented in this encounter Additional Health Concerns Assessment Noted Time PHQ-9 Depression Total Score: 3 05/12/20 23 1:00 PM EST documented as of this encounter Care Teams Client Technical Support Associate Relationship Specialty Start Date End Date Stanley Toledo MD [address] [place] [address] PCP - ACO Reach 10/17/22 Stanley Toledo MD 112 [facility] 100 [place] [address] PCP - General Family Medicine 11/20/22 Dora Santiago LPN Licensed Practical Nurse Family Medicine 12/22/2308/26 Christina Goddard LPN Licensed Practical Nurse Family Medicine 12/25/23 Joi Zhang LPN 08/26/24 documented as of this encounter
--- OUTSIDE RECORDS SUMMARY | 2024-10-27 11:25 | XMS_ITS | Encounter Summary ---
Author Organization [facility] Address [address] [place] [address] Phone Care Team Providers Care Assembly Line Machine Operator Name Role Phone Stanley Toledo MD Primary Care Provider Ruby Vickers MD Unavailable Encounter Details Date Type Department Care Team (Late st Contact Info) Description 09/16/2024 Scanned Document [facility] [address] [place] [address] Scanning, Generic Provider Social History [...] suspected to have Coronavirus/COVID-19? No / Unsure 09/10/2024 9:28 AM EDT documented as of this encounter Plan of Treatment Upcoming Encounters Date Type Department Care Team (Late st Contact Info) Description 03/29/2025 11:00 AM EST Office Visit [facility] 703 [facility] [address] [place] [address] Teo Stokes MD 703 [facility] 2, [address] [place] [address] documented as of this encounter Procedures Procedure Name Priority Date/Time Associated Diagnosis Comments OUTSIDE LAB SCAN 09/16/2024 documented in this encounter Results * OUTSIDE LAB SCAN (09/16/2024) Narrative 09/16/2024 Ordered by an unspecified provider. us Generic Provider Scanning OUTSIDE SCAN Final Result documented in this encounter Visit Diagnoses Not on filedocumented in this encounter Additional Health Concerns Assessment Noted Time A fall risk assessment has been complete d for the patient 09/10/2024 9:37 AM EDT documented as of this encounter Care Teams Assembly Line Machine Operator Relationship Specialty Start Date End Date Stanley Toledo MD [address] [place] [address] PCP - General 05/17/22 Ruby Vickers MD 125 [address] [facility] Medical Office Bldg, [address] [place] [address] Oracle Fusion Middleware Developer Electrophysiology 10/04/24 documented as of this encounter
--- OUTSIDE RECORDS SUMMARY | 2024-10-27 11:25 | XMS_ITS | Encounter Summary ---
Author Organization [facility] Address [address] [place] [address] Care Team Providers Care Process Development Technician Name Role Phone Stanley Toledo MD Unavailable [phone] Stanley Toledo MD Primary Care Provider + [phone] Dora Santiago BARIATRIC SURGEON Unavailable Christina Goddard BARIATRIC SURGEON Unavailable Unavailable Joi Zhang BARIATRIC SURGEON Unavailable Unavailable Encounter Details Date Type Department Care Team (Late Contact Info) Description 07/01/2023 Abstract [facility] [address] [place] [address] Stanley Toledo MD [address] [address] Social History Tobacco Use Types Packs/Day Years [...] Visit [facility] [address] [facility] [address] [place] [address] Stanley Toledo MD 112 [facility] 100 [place] [address] (Fax) documented as of this encounter Visit Diagnoses Not on filedocumented in this encounter Additional Health Concerns Assessment Noted Time PHQ-9 Depression Total Score: 3 05/12/20 23 1:00 PM EST documented as of this encounter Care Teams Process Development Technician Relationship Specialty Start Date End Date Stanley Toledo MD [address] [place] [address] PCP - ACO Reach 10/17/22 Stanley Toledo MD [address] [facility] [address] [place] [address] PCP - General Family Medicine 11/20/22 Dora Santiago LPN Licensed Practical Nurse Family Medicine 12/22/2308/26 Christina Goddard LPN Licensed Practical Nurse Family Medicine 12/25/23 Joi Zhang LPN 08/26/24 documented as of this encounter
--- OUTSIDE RECORDS SUMMARY | 2024-10-27 11:25 | XMS_ITS | Encounter Summary ---
Author Organization [facility] Address [address] [place] [address] Phone Care Team Providers Care Dye Boarding Machine Operator Name Role Phone Stanley Toledo MD Primary Care Provider Ruby Vickers MD Unavailable Encounter Details Date Type Department Care Team (Late st Contact Info) Description 08/23/2024 Scanned Document [facility] [address] [place] [id number] Scanning, Generic Provider Social History Tobacco Use [...] Description 03/29/2025 11:00 AM EST Office Visit [facility] [address] [facility] [address] [place] [address] Teo Stokes MD [address] [facility] [address] [place] [address] documented as of this encounter Visit Diagnoses Not on filedocumented in this encounter Additional Health Concerns Assessment Noted Time A fall risk assessment has been complete d for the patient 02/10/2024 9:14 AM EDT documented as of this encounter Care Teams Dye Boarding Machine Operator Relationship Specialty Start Date End Date Stanley Toledo MD [address] [place] [address] PCP - General 05/17/22 Ruby Vickers MD [address] [facility] Medical Office [address] [place] [address] Product Marketing Consultant Electrophysiology 10/04/24 documented as of this encounter
--- OUTSIDE RECORDS SUMMARY | 2024-10-27 11:25 | XMS_ITS | Encounter Summary ---
Author Organization [facility] Address [address] [place] [address] Care Team Providers Care Operations Manager Assistant Name Role Phone Stanley Toledo MD Unavailable [phone] Stanley Toledo MD Primary Care Provider + [phone] Dora Santiago LIGHTNING ROD INSTALLER Unavailable Christina Goddard LIGHTNING ROD INSTALLER Unavailable Unavailable Joi Zhang LIGHTNING ROD INSTALLER Unavailable Unavailable Encounter Details Date Type Department Care Team ([facility] Contact Info) Description 12/09/2022 Abstract [facility] [address] [place] [address] Stanley Toledo MD [address] [address] (Fax) Social History Tobacco Use Types Packs/Day [...] Office Visit [facility] 112 [facility] 100 [place] [address] Stanley Toledo MD [address] [address] (Fax) documented as of this encounter Visit Diagnoses Not on filedocumented in this encounter Care Teams Operations Manager Assistant Relationship Specialty Start Date End Date Stanley Toledo MD 112 [facility] 100 [place] [address] PCP - ACO Reach 10/17/22 Stanley Toledo MD 112 [facility] 100 [place] [address] PCP - General Family Medicine 11/20/22 Dora Santiago LPN Licensed Practical Nurse Family Medicine 12/22/2308/26 Christina Goddard LPN Licensed Practical Nurse Family Medicine 12/25/23 Joi Zhang LPN 08/26/24 documented as of this encounter
--- OUTSIDE RECORDS SUMMARY | 2024-10-27 11:25 | XMS_ITS | Clinical Summary ---
Author Organization [facility] Address [address] 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 3 Active ferrous sulfate, 325 mg ferrous sulfate, tablet Take 1 tablet (325 mg) by mouth once daily with breakfast. Active multivitamin (Multiple Vitamins) tablet Take 1 tablet by mouth once daily. Active atorvastatin (Lipitor) 80 mg tablet Take 1 tablet (80 mg) by mouth once daily. Active nitroglycerin (Nitrostat) 0.[address] 1 tablet (0.4 mg) under the tongue every 5 minutes if needed for chest pain. Active furosemide (Lasix) 40 mg tablet Take 1 tablet (40 mg) by mouth once daily. 4 Active amiodarone (Pacerone) 200 mg tabletIndication s:Paroxysmal atrial fibrillation (Multi) Take 1 tablet (200 mg) by mouth once daily. 90 tablet 1 4 02/10/20 25 Active potassium chloride CR (Klor-Con M20) 20 mEq ER tabletIndication s:Hypokalemia Take 1 tablet (20 mEq) by mouth once daily. Do not crush or chew. 90 tablet 3 4 02/18/20 25 Active clopidogrel (Plavix) 75 mg tabletIndication s:Coronary artery disease involving [place] coronary artery of [place] heart without angina pectoris Patient will take 4 tablets ( 300mg) one time only, then will take one tablet daily 90 tablet 3 4 Active warfarin (Coumadin) 5 mg tabletIndication s:Paroxysmal atrial fibrillation (Multi) Take one tablet daily in the evening. Follow with [facility]. Patient will take coumadin and eliquis together for 3 days only 14 tablet 4 03/04/20 25 Active metoprolol succinate XL (Toprol-XL) 25 mg 24 hr tabletIndication s:Cardiomyopathy , ischemic Take 1 tablet (25 mg) by mouth once daily. Do not crush or chew. 90 tablet 3 4 05/21/20 25 Active methIMAzole (Tapazole) 5 mg tabletIndication s:High risk medication use,Hyperthyroid ism Take 1 tablet (5 mg) by mouth 2 times a day. 180 tablet 3 5 07/30/19 26 Active QUEtiapine (SEROquel) 25 mg tablet Take 1 tablet (25 mg) by mouth once daily at bedtime. 5 Active rivastigmine (Exelon) 4.6 mg/[address] 1 patch on the skin once daily. 5 Active enoxaparin (Lovenox) 100 mg/mL syringeIndicatio ns:Cardiomyopath y, ischemic,S/P PTCA (percutaneous transluminal coronary angioplasty),Par oxysmal atrial fibrillation (Multi) Inject 1 mL (100 mg) under the skin every 12 hours. STOP Warfarin 3 days prior to procedure. 2 days prior, inject one syringe into the abdomen in the morning, and again in the evening. 1 day prior inject one syringe into the abdomen in the morning ONLY. None the night prior. None in the morning of the procedure. 3 each 5 Active cephalexin (Keflex) 250 mg capsule Take 1 capsule (250 mg) by mouth early in the morning.. 5 10/09/19 25 Discontinu ed(Med List Cleanup) sulfamethoxazole -trimethoprim (Bactrim DS) 800-160 mg tablet Take 1 tablet by mouth once daily. 5 10/13/19 25 Active Problems Problem Noted Date Diagnosed Date Body mass index (BMI) 25.0-25.9, adult 5 Encounter for medication review and counseling 0 10/08/2024 Encounter to discuss test results 10/08/2024 Encounter to discuss treatment options Encounter to establish care with new provider Ventricular ectopy/arrhythmi a, pre-operative cardiovascular exam 10/08/2024 S/P PTCA (percutaneous transluminal coronary ang ioplasty) 02/10/2024 Coronary artery disease invo lving [place] coronary artery of [place] heart without angina pectoris 02/10/2024 Paroxysmal atrial fibrillation (Multi) Former smoker 02/10/2024 High risk medication use 02/10/2024 STEMI (ST elevation myocardial infarction) (Mult i) 02/10/2024 Cardiomyopathy, ischemic 02/10/2024 Dyslipidemia 08/11/2023 Essential hypertension 08/11/2023 Stage 3a chronic kidney disease (Multi) 05/12/20 Abdominal aortic aneurysm (A AA) greater than 5.5 cm in diameter in male 11/11/2022 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 Transient cerebral ischemic attack 05/16/2022 Resolved Problems Problem Noted Date Diagnosed Date Resolved Date BMI 26.0-26.9,adult 02/10/2024 10/09/19 25 Encounters Date Type Department Care Team Description 10/19/2024 Telephone [facility] [address] [place] [address] Almita Howard MA 10/19/2024 Telephone [facility] [address] [place] [address] Leanne Soriano LPN 10/08/2024 3:00 PM EDT Office Visit [facility] [address] [place] [address] Ruby Vickers MD Cardiomyopathy, ischemic (Primary Dx); Encounter to establish care with new provider; Encounter to discuss treatment options; Encounter to discuss test results; Encounter for medication review and counseling; High risk medication use; ST elevation myocardial infarction (STEMI), unspecified artery (Multi); S/P PTCA (percutaneous transluminal coronary angioplasty); Paroxysmal atrial fibrillation (Multi); Former smoker; Body mass index (BMI) 25.0-25.9, adult; Pre-operative cardiovascular examination; Ventricular ectopy/arrhythmia, pre-operative cardiovascular exam; Bradyarrhythmia on pre-operative cardiovascular examination; Pre-operative cardiovascular examination, supraventricular arrhythmia 10/08/2024 Travel 10/07/2024 Scanned Document [facility] [address] [place] [address] Scanning, Generic Provider 09/16/2024 Scanned Document [facility] [address] [place] [address] Scanning, Generic Provider 09/10/2024 10:00 AM EDT Office Visit [address] [place] [address] Magdy Stokes MD Cardiomyopathy, ischemic; Coronary artery disease involving [place] coronary artery of [place] heart without angina pectoris; S/P PTCA (percutaneous transluminal coronary angioplasty); ST elevation myocardial infarction (STEMI), unspecified artery (Multi); Paroxysmal atrial fibrillation (Multi); High risk medication use; Essential hypertension; Abdominal aortic aneurysm (AAA) greater than 5.5 cm in diameter in male; Dyslipidemia; Stage 3a chronic kidney disease (Multi); Former smoker; BMI 26.0-26.9,adult 09/10/2024 Telephone [facility] [address] [facility] [address] [place] [address] Yolis Ocasio I 09/10/2024 Travel 09/02/2024 Scanned Document [facility] [address] [place] [address] Scanning, Generic Provider 08/26/2024 Scanned Document [facility] [address] [place] [address] Scanning, Generic Provider 08/23/2024 Scanned Document [facility] [address] [place] [address] Scanning, Generic Provider 08/18/2024 Scanned Document [facility] [address] [place] [address] Scanning, Generic Provider 08/13/2024 Telephone [facility] [address] [place] [address] Elaine Clement RN 08/11/2024 Telephone [facility] [address] [place] [address] Elaine Clement RN 08/10/2024 Scanned Document [facility] [address] [place] [address] Scanning, Generic Provider 08/06/2024 10:29 AM EDT - 08/06/2024 11:59 PM EDT Hospital Encounter [place] [address] [place] [address] ST elevation myocardial infarction (STEMI), unspecified artery (Multi); Cardiomyopathy, ischemic; Coronary artery disease involving [place] coronary artery of [place] heart without angina pectoris; S/P PTCA (percutaneous transluminal coronary angioplasty) Discharge Disposition: Home 08/06/2024 Travel 08/02/2024 Scanned Document [facility] [address] [place] [address] Scanning, Generic Provider 07/29/2024 11:00 AM EST Office Visit [address] [address] Magdy Stokes MD Cardiomyopathy, ischemic (Primary Dx); Coronary artery disease involving [place] coronary artery of [place] heart without angina pectoris; Paroxysmal atrial fibrillation (Multi); High risk medication use; S/P PTCA (percutaneous transluminal coronary angioplasty); ST elevation myocardial infarction (STEMI), unspecified artery (Multi); Infrarenal abdominal aortic aneurysm (AAA) without rupture; Essential hypertension; Dyslipidemia; Stage 3a chronic kidney disease (Multi); Transient cerebral ischemia, unspecified type; Hematuria, unspecified type; Hyperthyroidism; BMI 26.0-26.9,adult; Former smoker 07/29/[address] [place] [address] Pebbles Arcos LPN 07/29/2024 Travel 07/28/2024 Scanned Document [facility] [address] [place] [address] Scanning, Generic Provider from Last 3 Months Immunizations Immunization Administration Dates Next Due Flu vaccine (IIV4), preservative free *Check age /dose* 02/22/2021 Flu vaccine, quadrivalent, h igh-dose, preservative free, age 65y+ (FLUZONE) 03/06/2022 Flu vaccine, quadrivalent, r ecombinant, preservative free, adult (FLUBLOK) 02/22/2020 Flu vaccine, trivalent, pres ervative free, HIGH-DOSE, age 65y+ (Fluzone) 05/20/2022,02/14/2021 Influenza, Seasonal, Quadrivalent, Adjuvanted Influenza, seasonal, injectable 03/16/2022 Pneumococcal polysaccharide vaccine, 23-valent, age 2 years and older (PNEUMOVAX 23) 04/23/2021 Family History Medical History Relation Name Comments Brain cancer Father bowel obstruction Mother Relation Name Status Comments Father Mother Social History Tobacco Use Types Packs/Day Years Used Date Smoking Tobacco: Former Cigarettes Smokeless Tobacco: Never Tobacco Cessation:Counseling Given: Not Answered Alcohol Use Standard Drinks/Week Comments Never 0 [...] No / Unsure 10/08/2024 2:26 PM EDT Last Filed Vital Signs Vital Sign Reading Time Taken Comments Blood Pressure 80/58 10/08/2024 2:43 PM EDT Pulse 75 10/08/2024 2:43 PM EDT Temperature - - Respiratory Rate - - Oxygen Saturation - - Inhaled Oxygen Concentration - - Weight 90.7 kg (200 lb) 10/08/2024 2:43 PM EDT Height 188 cm (6' 2 ) 10/08/2024 2:43 PM EDT Body Mass Index 25.68 10/08/2024 2:43 PM EDT Plan of Treatment Upcoming Encounters Date Type Department Care Team (Late st Contact Info) Description 03/29/2025 11:00 AM EST Office Visit [facility] [address] [place] [address] Magdy Stokes MD [address] [place] [address] Health Maintenance Due Date Last Done Comments Creatinine Level 1945 Lipid Panel 1945 Medicare Annual Wellness Visit (AWV) 1945 Potassium Level 1945 Diabetes Screening 11/30/1961 CKD: Urine Protein Screening 11/30/1962 DTaP/Tdap/Td Vaccines (1 - Tdap) 11/30/1965 Zoster Vaccines (1 of 2) 11/30/1993 COVID-19 Vaccine (4 - season) 2024 03/19/2024, 02/16/2023, 03/29/2022, Additional history exists Echocardiogram 08/06/2025 08/06/2024, 08/2 07/2023, 05/16/2022 TSH Level 10/02/2025 10/02/2024 Pneumococcal Vaccine Completed 05/28/2023, 04/23/20 21 Influenza Vaccine Completed 03/19/2024, , 05/20/2022, Additional history exists RSV High Risk: (Elderly (60+) or Population) Completed 08/23/2024 HIB Vaccines Aged Out No longer eligi ble based on patient's age to complete this topic HPV Vaccines Aged Out No longer eligi ble based on patient's age to complete this topic Hepatitis A Vaccines Aged Out No long er eligible based on patient's age to complete this topic Hepatitis B Vaccines Aged Out No long er eligible based on patient's age to complete this topic IPV Vaccines Aged Out No longer eligi ble based on patient's age to complete this topic Meningococcal Vaccine Aged Out No howard zuleyma eligible based on patient's age to complete this topic Rotavirus Vaccines Aged Out No longer eligible based on patient's age to complete this topic Procedures Procedure Name Priority Date/Time Associated Diagnosis Comments OUTSIDE LAB SCAN 10/07/2024 OUTSIDE LAB SCAN 09/16/2024 ECG 12-LEAD Routine 09/10/2024 10:00 AM EDT Paroxysmal atrial fibrillation (Multi) OUTSIDE LAB SCAN 09/02/2024 OUTSIDE LAB SCAN 09/02/2024 OUTSIDE LAB SCAN 08/26/2024 OUTSIDE LAB SCAN 08/18/2024 OUTSIDE LAB SCAN 08/10/2024 TRANSTHORACIC ECHO (TTE) LIMITED Routine 08/06/2024 12:[address] elevation myocardial infarction (STEMI), unspecified artery (Multi) Cardiomyopathy, ischemic Coronary artery disease involving [place] coronary artery of [place] heart without angina pectoris S/P PTCA (percutaneous transluminal coronary angioplasty) ECG 12-LEAD Routine 07/29/2024 11:00 AM EST Paroxysmal atrial fibrillation (Multi) OUTSIDE LAB SCAN 07/28/2024 from Last 3 Months Results * OUTSIDE LAB SCAN (10/07/2024) Only the most recent of8 resultswithin the time period is included. Narrative 10/07/2024 Ordered by an unspecified provider. us Generic Provider Scanning OUTSIDE SCAN Final Result * ECG 12 Lead (09/10/2024 10:00 AM EDT) Only the most recent of2 resultswithin the time period is included. Narrative [facility] - 09/10/2024 10:26 AM EDT ECG revealed normal sinus rhythm, right axis deviation, IVCD, septal myocardial infarction of undetermined age, diffuse repolarization abnormalities, abnormal ECG us Magdy Stokes MD ECG ORDERABLES Final Result CPACS * TRANSTHORACIC ECHO (TTE) LIMITED (08/06/2024 12:04 PM EDT) AV mn grad 4 mmHg SYNGO AV pk patrice 1.38 m/s SYNGO LV Biplane EF 38 % SYNGO LVOT diam 2.23 cm SYNGO MV E/A ratio 0.70 SYNGO MV avg E/e' ratio 15.11 SYNGO LV EF 33 % SYNGO RV free wall pk S' 12.40 cm/s SYNGO RVSP 19.0 mmHg SYNGO LVIDd 5.46 cm SYNGO Aortic Valve Area by Continuity of Peak Velocity 1.89 cm2 SYNGO AV pk grad 8 mmHg SYNGO Aortic Valve Area by Continuity of VTI 2.09 cm2 SYNGO LV A4C EF 31.7 SYNGO 08/06/2024 10:4 3 AM EDT Narrative SYNGO - 08/11/2024 5:54 PM EDT [address], [address] [place] [address] TRANSTHORACIC ECHOCARDIOGRAM REPORT Patient Name: ALEX Sawyer Physician: [id number] Mally Torres MD Study Date: 08/06/2024 Ordering Provider: [id number] MAGDY STOKES MRN/PID: [id number] Fellow: Nurse: Date of /Age: 7 1945 / 78 years Spanish Literature Professor: Marlyn Castro RDCS, RT(R), RDMS, RVT Gender Assigned at Additional Staff: : Height: 187.96 cm Admit Date: Weight: 92.53 kg Admission Status: Outpatient BSA / BMI: 2.19 m2 / 26.19 Department Location: [facility] [address] Blood Pressure: 98 /64 mmHg Study Type: TRANSTHORACIC ECHO (TTE) LIMITED Diagnosis/ICD: Atherosclerotic heart disease of [place] coronary artery without angina pectoris-I25.10; ST elevation (STEMI) myocardial infarction of unspecified site-I21.3 Indication: STEMI CPT Codes: Echo Limited-72214 Patient History: Smoker: Former. Pertinent History: A-Fib, HTN and PTCA ICM. Study Detail: The following Echo studies were performed: 2D and Doppler. PHYSICIAN INTERPRETATION: Left Ventricle: The left ventricular systolic function is moderately decreased, with a visually estimated ejection fraction of 30-35%. The left ventricular cavity size is normal. There is normal septal and normal posterior left ventricular wall thickness. Spectral Doppler shows a Grade I (impaired relaxation pattern) of left ventricular diastolic filling with normal left atrial filling pressure. There is akinesis of the mid to distal anteroseptal wall apex and periapical segment. Left Atrium: The left atrial size is normal. Right Ventricle: The right ventricle is normal in size. There is normal right ventricular global systolic function. Right Atrium: The right atrial size is normal. Aortic Valve: The aortic valve appears structurally normal. The aortic valve dimensionless index is 0.53. There is trace aortic valve regurgitation. The peak instantaneous gradient of the aortic valve is 8 mmHg. The mean gradient of the aortic valve is 4 mmHg. Mitral Valve: The mitral valve is normal in structure. The peak instantaneous gradient of the mitral valve is 3 mmHg. There is trace mitral valve regurgitation. Tricuspid Valve: The tricuspid valve is structurally normal. There is trace to mild tricuspid regurgitation. Pulmonic Valve: The pulmonic valve is structurally normal. The pulmonic valve regurgitation was not assessed. Pericardium: No pericardial effusion noted. Aorta: The aortic root is normal. CONCLUSIONS: 1. The left ventricular systolic function is moderately decreased, with a visually estimated ejection fraction of 30-35%. 2. Spectral Doppler shows a Grade I (impaired relaxation pattern) of left ventricular diastolic filling with normal left atrial filling pressure. 3. There is akinesis of the mid to distal anteroseptal wall apex and periapical segment. 4. There is normal right ventricular global systolic function. 5. No change when compared to previous study. QUANTITATIVE DATA SUMMARY: 2D MEASUREMENTS: Normal Ranges: Ao Root s: 3.70 cm LAs: 3.85 cm (2.7-4.0cm) RVIDd: 2.60 cm (0.9-3.6cm) IVSd: 0.88 cm (0.6-1.1cm) LVPWd: 0.70 cm (0.6-1.1cm) LVIDd: 5.46 cm (3.9-5.9cm) LVIDs: 3.36 cm LV Mass Index: 70.8 g/m2 LVEDV Index: 74.58 ml/m2 LV % FS 38.5 % LV SYSTOLIC FUNCTION: Normal Ranges: EF-A4C View: 32 % (>=55%) EF-A2C View: 41 % EF-Biplane: 38 % EF-Visual: 33 % LV EF Reported: 33 % LV DIASTOLIC FUNCTION: Normal Ranges: MV Peak E: 0.63 m/s (0.7-1.2 m/s) MV Peak A: 0.89 m/s (0.42-0.7 m/s) E/A Ratio: 0.70 (1.0-2.2) MV e' 0.041 m/s (>8.0) MV lateral e' 0.05 m/s MV medial e' 0.04 m/s E/e' Ratio: 15.11 (<8.0) MITRAL VALVE: Normal Ranges: MV Vmax: 0.89 m/s (<=1.3m/s) MV peak P.2 mmHg (<5mmHg) MV mean P.5 mmHg (<48mmHg) MV VTI: 21.50 cm (10-13cm) MV DT: 123 msec (150-240msec) MV PHT: 29 msec (30-60msec) MVA by PHT: 7.59 cm2 (4-6cm2) AORTIC VALVE: Normal Ranges: AoV Vmax: 1.38 m/s (<=1.7m/s) AoV Peak P.6 mmHg (<20mmHg) AoV Mean P.0 mmHg (1.7-11.5mmHg) LVOT Max Patrice: 0.66 m/s (<=1.1m/s) AoV VTI: 28.25 cm (18-25cm) LVOT VTI: 15.11 cm LVOT Diameter: 2.23 cm (1.8-2.4cm) AoV Area, VTI: 2.09 cm2 (2.5-5.5cm2) AoV Area,Vmax: 1.89 cm2 (2.5-4.5cm2) AoV Dimensionless Index: 0.53 AORTIC INSUFFICIENCY: AI Vmax: 3.62 m/s AI Half-time: 927 msec AI Decel Time: 3197 msec AI Decel Rate: 119.71 cm/s2 RIGHT VENTRICLE: RV s' 0.12 m/s TRICUSPID VALVE/RVSP: Normal Ranges: Peak TR Velocity: 2.00 m/s Est. RA Pressure: 3 mmHg RV Syst Pressure: 19 mmHg (< 30mmHg) PULMONIC VALVE: Normal Ranges: PV Max Patrice: 0.6 m/s (0.6-0.9m/s) PV Max P.6 mmHg [id number] Mally Torres MD Electronically signed on 08/11/2024 at 5:54:03 PM Final Procedure Note Mally Torres MD - 08/11/[address], [address], [place] [address] TRANSTHORACIC ECHOCARDIOGRAM REPORT Patient Name: ALEX ANDERSON Reading Physician: [id number] Rosales Study Date: 08/06/2024 Ordering Provider: [id number] ALYSSIA STOKES MRN/PID: [id number] Fellow: Nurse: Date of /Age: 7 1945 / 78 years Spanish Literature Professor: Zeke YOO,RT(R), RDMS, RVT Gender Assigned at M Additional Staff: : Height: 187.96 cm Admit Date: Weight: 92.53 kg Admission Status: Outpatient BSA / BMI: 2.19 m2 / 26.19 Department Location: [facility] kg/m2 [place] Blood Pressure: 98 /64 mmHg Study Type: TRANSTHORACIC ECHO (TTE) LIMITED Diagnosis/ICD: Atherosclerotic heart disease of [place] coronary arterywithout angina pectoris-I25.10; ST elevation (STEMI) myocardial infarction of unspecified site-I21.3 Indication: STEMI CPT Codes: Echo Limited-25720 Patient History: Smoker: Former. Pertinent History: A-Fib, HTN and PTCA ICM. Study Detail: The following Echo studies were performed: 2D and Doppler. PHYSICIAN INTERPRETATION: Left Ventricle: The left ventricular systolic function is moderatelydecreased, with a visually estimated ejection fraction of 30-35%. The leftventricular cavity size is normal. There is normal septal and normalposterior left ventricular wall thickness. Spectral Doppler shows a GradeI (impaired relaxation pattern) of left ventricular diastolic filling withnormal left atrial filling pressure. There is akinesis of the mid todistal anteroseptal wall apex and periapical segment. Left Atrium: The left atrial size is normal. Right Ventricle: The right ventricle is normal in size. There is normalright ventricular global systolic function. Right Atrium: The right atrial size is normal. Aortic Valve: The aortic valve appears structurally normal. The aorticvalve dimensionless index is 0.53. There is trace aortic valveregurgitation. The peak instantaneous gradient of the aortic valve is 8mmHg. The mean gradient of the aortic valve is 4 mmHg. Mitral Valve: The mitral valve is normal in structure. The peakinstantaneous gradient of the mitral valve is 3 mmHg. There is tracemitral valve regurgitation. Tricuspid Valve: The tricuspid valve is structurally normal. There istrace to mild tricuspid regurgitation. Pulmonic Valve: The pulmonic valve is structurally normal. The pulmonicvalve regurgitation was not assessed. Pericardium: No pericardial effusion noted. Aorta: The aortic root is normal. CONCLUSIONS: 1. The left ventricular systolic function is moderately decreased, with avisually estimated ejection fraction of 30-35%. 2. Spectral Doppler shows a Grade I (impaired relaxation pattern) of leftventricular diastolic filling with normal left atrial filling pressure. 3. There is akinesis of the mid to distal anteroseptal wall apex andperiapical segment. 4. There is normal right ventricular global systolic function. 5. No change when compared to previous study. QUANTITATIVE DATA SUMMARY: 2D MEASUREMENTS: Normal Ranges: Ao Root s: 3.70 cm LAs: 3.85 cm (2.7-4.0cm) RVIDd: 2.60 cm (0.9-3.6cm) IVSd: 0.88 cm (0.6-1.1cm) LVPWd: 0.70 cm (0.6-1.1cm) LVIDd: 5.46 cm (3.9-5.9cm) LVIDs: 3.36 cm LV Mass Index: 70.8 g/m2 LVEDV Index: 74.58 ml/m2 LV % FS 38.5 % LV SYSTOLIC FUNCTION: Normal Ranges: EF-A4C View: 32 % (>=55%) EF-A2C View: 41 % EF-Biplane: 38 % EF-Visual: 33 % LV EF Reported: 33 % LV DIASTOLIC FUNCTION: Normal Ranges: MV Peak E: 0.63 m/s (0.7-1.2 m/s) MV Peak A: 0.89 m/s (0.42-0.7 m/s) E/A Ratio: 0.70 (1.0-2.2) MV e' 0.041 m/s (>8.0) MV lateral e' 0.05 m/s MV medial e' 0.04 m/s E/e' Ratio: 15.11 (<8.0) MITRAL VALVE: Normal Ranges: MV Vmax: 0.89 m/s (<=1.3m/s) MV peak P.2 mmHg (<5mmHg) MV mean P.5 mmHg (<48mmHg) MV VTI: 21.50 cm (10-13cm) MV DT: 123 msec (150-240msec) MV PHT: 29 msec (30-60msec) MVA by PHT: 7.59 cm2 (4-6cm2) AORTIC VALVE: Normal Ranges: AoV Vmax: 1.38 m/s (<=1.7m/s) AoV Peak P.6 mmHg (<20mmHg) AoV Mean P.0 mmHg (1.7-11.5mmHg) LVOT Max Patrice: 0.66 m/s (<=1.1m/s) AoV VTI: 28.25 cm (18-25cm) LVOT VTI: 15.11 cm LVOT Diameter: 2.23 cm (1.8-2.4cm) AoV Area, VTI: 2.09 cm2 (2.5-5.5cm2) AoV Area,Vmax: 1.89 cm2 (2.5-4.5cm2) AoV Dimensionless Index: 0.53 AORTIC INSUFFICIENCY: AI Vmax: 3.62 m/s AI Half-time: 927 msec AI Decel Time: 3197 msec AI Decel Rate: 119.71 cm/s2 RIGHT VENTRICLE: RV s' 0.12 m/s TRICUSPID VALVE/RVSP: Normal Ranges: Peak TR Velocity: 2.00 m/s Est. 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
--- OUTSIDE RECORDS SUMMARY | 2024-10-27 11:25 | XMS_ITS | Encounter Summary ---
Author Organization [facility] Address [address] [place] [address] Phone Care Team Providers Care Investigator Narcotics Name Role Phone Stanley Toledo MD Primary Care Provider Ruby Vickers MD Unavailable Encounter Details Date Type Department Care Team (Late st Contact Info) Description 10/19/2024 Telephone [facility] [address] [address] Almita Howard MA Social History Tobacco Use Types Packs/Day Years [...] encounter Miscellaneous Notes * Telephone Encounter - Almita Howard MA - 10/19/2024 3:07 PM EDT Patients Estella Anderson called in and left a voicemail today at 2:09 PM that he had a consultation with Dr. Vickers on 10/08/2024. The stated that the patient was to get a defibrillator placed and he has decided not to do the procedure and would like to cancel that procedure. Return phone number that was left on the voicemail was [phone]. documented in this encounter Plan of Treatment Upcoming Encounters Date Type Department Care Team (Late st Contact Info) Description 03/29/2025 11:00 AM EST Office Visit [facility] [address] [facility] [address] [place] [id number] Teo Stokes MD [address] [facility] [address] [place], [place] [id number] documented as of this encounter Visit Diagnoses Not on filedocumented in this encounter Additional Health Concerns Assessment Noted Time A fall risk assessment has been complete d for the patient 09/10/2024 9:37 AM EDT documented as of this encounter Care Teams Investigator Narcotics Relationship Specialty Start Date End Date Stanley Toledo MD [address] [place] [address] PCP - General 05/17/22 Ruby Vickers MD [address] [facility] [address], [address] [place] [address] Outreach Manager Electrophysiology 10/04/24 documented as of this encounter
--- OUTSIDE RECORDS SUMMARY | 2024-10-27 11:25 | XMS_ITS | Encounter Summary ---
Author Organization [facility] Address [address] [place] [address] Care Team Providers Care Manager Of Community Relations Name Role Phone Stanley Toledo MD Unavailable [phone] Stanley Toledo MD Primary Care Provider + [phone] Dora Santiago BRUSHING OPERATOR Unavailable Christina Goddard BRUSHING OPERATOR Unavailable Unavailable Joi Zhang BRUSHING OPERATOR Unavailable Unavailable Encounter Details Date Type Department Care Team ([facility] Contact Info) Description 12/17/2022 Abstract [facility] [address] [place] [address] Stanley Toledo MD [address] [address] (Fax) Social History Tobacco Use Types Packs/Day [...] Upcoming Encounters Date Type Department Care Team ([facility] Contact Info) Description 11/09/2024 2:00 PM EDT Office Visit [facility] 100 112 [facility] 100 [place] [address] Stanley Toledo MD 112 [facility] 100 [place] [address] (Fax) documented as of this encounter Visit Diagnoses Not on filedocumented in this encounter Care Teams Manager Of Community Relations Relationship Specialty Start Date End Date Stanley Toledo MD [address] [facility] [address] [place] [address] PCP - ACO Reach 10/17/22 Stanley Toledo MD [address] [place] [address] [address] PCP - General Family Medicine 11/20/22 Dora Santiago LPN Licensed Practical Nurse Family Medicine 12/22/2308/26 Christina Goddard LPN Licensed Practical Nurse Family Medicine 12/25/23 Joi Zhang LPN 08/26/24 documented as of this encounter
--- OUTSIDE RECORDS SUMMARY | 2024-10-27 11:26 | XMS_ITS | Encounter Summary ---
Author Organization [facility] Address [address] [place] [address] Care Team Providers Care Special Education Administrator Name Role Phone Stanley Toledo MD Unavailable [phone] Stanley Toledo MD Primary Care Provider + [phone] Dora Santiago HUMAN FACTORS SCIENTIST Unavailable Christina Goddard HUMAN FACTORS SCIENTIST Unavailable Unavailable Joi Zhagn HUMAN FACTORS SCIENTIST Unavailable Unavailable Encounter Details Date Type Department Care Team (Late Contact Info) Description 08/06/2023 Abstract [facility] [address] [place] [address] Stanley Toledo MD [address] [address] Social History Tobacco Use Types Packs/Day Years [...] FM 100 112 [facility] 100 [place] [address] Stanley Toledo MD 112 [facility] 100 [place] [address] (Fax) documented as of this encounter Visit Diagnoses Not on filedocumented in this encounter Additional Health Concerns Assessment Noted Time PHQ-9 Depression Total Score: 3 05/12/20 23 1:00 PM EST documented as of this encounter Care Teams Special Education Administrator Relationship Specialty Start Date End Date Stanley Toledo MD [address] [place] [address] PCP - ACO Reach 10/17/22 Stanley Toledo MD [address] [facility] 100 [place] [address] PCP - General Family Medicine 11/20/22 Dora Santiago LPN Licensed Practical Nurse Family Medicine 12/22/2308/26 Christina Goddard LPN Licensed Practical Nurse Family Medicine 12/25/23 Joi Zhang LPN 08/26/24 documented as of this encounter
--- OUTSIDE RECORDS SUMMARY | 2024-10-27 11:26 | XMS_ITS ---
Author Organization [facility] Address [address] [place] [address] Care Team Providers Care Production Wood Craftsman Name Role Phone Stanley Toledo MD Unavailable [phone] Stanley Toledo MD Primary Care Provider + [phone] Joi Zhang LPN Unavailable Unavailable Chronic Care Management (CCM) Status:Enrolled (Active) Start date:12/22/2023 Enrollment date:12/31/2023 Enrollment reason:Identified as high-risk Overview Please assess for Care Management needs. 12/31/23, 10:20 AM - Dora Santiago LPN- Patient gives verbal consent to be enrolled in CCM Program and understands there could be a bill for this service. Case Team Name Relationship Phone Joi Zhang LPN(Responsible Staff) Continued Care and Services Coordination
--- OUTSIDE RECORDS SUMMARY | 2024-10-27 11:26 | XMS_ITS | Encounter Summary ---
Author Organization [facility] Address [address] [place] [address] Care Team Providers Care Novelty Twister Operator Name Role Phone Stanley Toledo MD Unavailable [phone] Stanley Toledo MD Primary Care Provider + [phone] Dora Santiago LPN Unavailable Joi Zhang LPN Unavailable Unavailable Encounter Details Date Type Department Care Team (Late st Contact Info) Description 01/27/2024 Abstract [facility] [address] [place] [address] Dariusz Pruett MD 703 [facility] 2, [facility] 250 [place] [address] Social History Tobacco Use Types Packs/Day Years Used Date Smoking Tobacco: Every Day Cigarettes 0.5 60.8 Started: 12/31/1965 Smokeless Tobacco: Never Alcohol Use Standard [...] often do you attend chur ch or hindu services? Never 12/31/2023 Do you belong to any clubs o r organizations such as denominational groups, unions, fraternal or athletic groups, or [...] Date Recorded Patient Health Questionnaire-2 Score 0 12/31/2023 [facility] - Occupational Stress Questionnaire Answer Date [...] any time in the past 12 m [facility], were you homeless or living in a penitentiary (including now)? No 12/31/2023 Sex and Gender Information Value Date Recorded Sex Assigned at Not on file Legal Sex Male 7:16 PM EDT Gender Identity Not on file Sexual Orientation Not on file documented as of this encounter Plan of Treatment Upcoming Encounters Date Type Department Care Team (Late st Contact Info) Description 11/09/2024 2:00 PM EDT Office Visit [facility] [address] [place] [address] Stanley Toledo MD [address] [place] [address] documented as of this encounter Visit Diagnoses Not on filedocumented in this encounter Additional Health Concerns Assessment Noted Time PHQ-9 Depression Total Score: 3 05/12/20 23 1:00 PM EST A fall risk assessment has been complete d for the patient 12/31/2023 8:54 AM EDT documented as of this encounter Care Teams Novelty Twister Operator Relationship Specialty Start Date End Date Stanley Toledo MD [address] [place] [address] PCP - ACO Reach 10/17/22 Stanley Toledo MD [address] [place] [address] [address] [place] [address] PCP - General Family Medicine 11/20/22 Dora Santiago LPN Licensed Practical Nurse Family Medicine 12/22/2308/26 Joi Zhang LPN 08/26/24 documented as of this encounter
--- OUTSIDE RECORDS SUMMARY | 2024-10-27 11:26 | XMS_ITS | Clinical Summary ---
[facility] Organization [facility] Address [address] [place] [address] Care Team Providers Care Drum Stock Clerk Name Role Phone Stanley Toledo MD Primary Care Provider Allergies No known active allergies Medications amiodarone (CORDARONE) 200 MG tablet Take 1 tablet by mouth daily 4 Active atorvastatin (LIPITOR) 80 MG tablet Take 1 tablet by mouth daily 4 Active clopidogrel (PLAVIX) 75 MG tablet Take 1 tablet by mouth daily 4 Active ferrous sulfate (IRON 325) 325 (65 Fe) MG tablet Take 1 tablet by mouth daily (with breakfast) Active furosemide (LASIX) 40 MG tablet Take 1 tablet by mouth daily 4 Active methIMAzole (TAPAZOLE) 5 MG tablet Take 1 tablet by mouth 2 times daily 5 07/30/19 26 Active metoprolol succinate (TOPROL XL) 25 MG extended release tablet Take 1 tablet by mouth daily 4 05/21/20 25 Active nitroGLYCERIN (NITROSTAT) 0.[address] 1 tablet under the tongue every 5 minutes as needed 4 Active warfarin (COUMADIN) 2 MG tablet Take 0.5 tablets by mouth daily 4 Active rivastigmine (EXELON) 4.6 MG/24HR Place 1 patch onto the skin daily 30 patch 1 5 Active QUEtiapine (SEROQUEL) 25 MG tablet Take 1 tablet by mouth nightly 60 tablet 5 Active albuterol sulfate HFA (PROVENTIL;WING TOLIN;PROAIR) 108 (90 Base) MCG/ACT inhaler Inhale 2 puffs into the lungs every 6 hours as needed for Wheezing or Shortness of Breath 18 g 5 Active ciprofloxacin (CIPRO) 250 MG tablet Take 1 tablet by mouth every 12 hours for 9 doses 9 tablet 5 10/06/19 25 Discontinue d(Stop Taking at Discharge) sulfamethoxazo le-trimethopri m (BACTRIM DS;SEPTRA DS) 800-160 MG per tablet Take 1 tablet by mouth daily for 7 days 7 tablet 5 10/13/19 25 Active Problems Problem Noted Date Diagnosed Date Acute cystitis without hematuria 10/04/2024 DNR (do not resuscitate) discussion 10/04/2024 Palliative care encounter 10/04/2024 Goals of care, counseling/discussion 10/04/2024 Chronic heart failure 10/04/2024 Acute metabolic encephalopathy 10/04/2024 Delirium due to another medical condition 2024 Community acquired pneumonia of lower lobe of nash ng 10/02/2024 Lower extremity edema 10/02/2024 Encounters Date Type Department Care Team Description 10/04/2024 9:46 AM EDT - 10/06/2024 11:59 PM EDT Hospital Encounter [facility] [address] [place] [id number] Julio Cesar Gaspar MD Grewal, Prabhsharn S, MD Discharge Disposition: Home or Self Care 10/02/2024 10:30 AM EDT - 10/05/2024 2:21 PM EDT Hospital Encounter [facility] Med Surg [address] [place] [address] Julio Cesar Gaspar MD Grewal, Prabhsharn S, MD Lower extremity edema (Primary Dx); Delirium due to another medical condition; Cognitive and behavioral changes Discharge Disposition: Home Health Care Svc 10/02/2024 Travel from Last 3 Months Social History Tobacco Use Types Packs/Day Years Used Date Smoking Tobacco: Former Cigarettes Tobacco Cessation:Counseling Given: Not Answered [facility] Utilities Answer Date Recorded In the past 12 months has th e electric, gas, oil, or water company threatened to shut off services in your home? Patient unable to answer 10/02/2024 Hunger Vital Sign Answer Date Recorded Within the past 12 months, y ou worried that your food would run out before you got the money to buy more. Patient unable to answer 10/02/2024 Within the past 12 months, t he food you bought just didn't last and you didn't have money to get more. Patient unable to answer 10/02/2024 PRAPARE - Transportation Answer Date Re corded In the past 12 months, has l ack of transportation kept you from medical appointments or from getting medications? Patient unable to answer 10/02/2024 In the past 12 months, has l ack of transportation kept you from meetings, work, or from getting things needed for daily living? Patient unable to answer 10/02/2024 Housing Stability Vital Sign Answer Alfredo e Recorded In the last 12 months, was t here a time when you were not able to pay the mortgage or rent on time? Patient unable to answer 10/02/2024 In the past 12 months, how m any times have you moved where you were living? Not on file 10/02/2024 At any time in the past 12 m [facility], were you homeless or living in a fdc (including now)? Patient unable to answer 10/02/2024 Food Insecurity Answer Date Recorded Within the past 12 months, y ou worried that your food would run out before you got the money to buy more. 97 10/02/2024 Within the past 12 months, t he food you bought just didn't last and you didn't have money to get more. 97 10/02/2024 Interpersonal Safety Domain Source: IP Abuse Scr eening Answer Date Recorded Physical abuse Denies 10/02/2024 Verbal abuse Denies 10/02/2024 Emotional abuse Denies 10/02/2024 Financial abuse Denies 10/02/2024 Sexual abuse Denies 10/02/2024 Sex and Gender Information Value Date Recorded Sex Assigned at Not on file Legal Sex Male 10:28 PM EDT Gender Identity Not on file Sexual Orientation Not on file Last Filed Vital Signs Vital Sign Reading Time Taken Comments Blood Pressure 107/67 10/05/2024 8:35 AM EDT Pulse 66 10/05/2024 8:35 AM EDT Temperature 36.7 C (98.1 F) 10/05/2024 7:05 AM EDT Respiratory Rate 18 10/05/2024 7:05 AM EDT Oxygen Saturation 94% 10/05/2024 7:05 AM EDT Inhaled Oxygen Concentration - - Weight 79.4 kg (175 lb) 10/02/2024 4:30 PM EDT Height 188 cm (6' 2 ) 10/02/2024 4:30 PM EDT Body Mass Index 22.47 10/02/2024 4:30 PM EDT Plan of Treatment Health Maintenance Due Date Last Done Comments Lipids 11/30/1955 Depression Screen 1955 DTaP/Tdap/Td vaccine (1 - Tdap) 11/30/1962 Shingles vaccine (1 of 2) 11/30/1993 COVID-19 Vaccine (8 season) 2024 03/19/2024, 02/16/2023, 03/29/2022, Additional history exists Annual Wellness Visit (Medicare) 10/02/2024 Pneumococcal 50+ years Vaccine Completed 05/28/2023, 04/23/2021 Flu vaccine Completed 03/19/2024, 05/2022, 05/20/2022, Additional history exists Respiratory Syncytial Virus (RSV) or age 60 yrs+ Completed 08/23/2024 Hepatitis A vaccine Aged Out No longe r eligible based on patient's age to complete this topic Hepatitis B vaccine Aged Out No longe r eligible based on patient's age to complete this topic Hib vaccine Aged Out No longer eligi ble based on patient's age to complete this topic Meningococcal (ACWY) vaccine Aged Out No longer eligible based on patient's age to complete this topic Meningococcal B vaccine Aged Out No l onger eligible based on patient's age to complete this topic Polio vaccine Aged Out No longer elig ible based on patient's age to complete this topic Procedures Procedure Name Priority Date/Time Associated Diagnosis Comments MAGNESIUM Routine 10/05/2024 6:08 AM EDT IRON AND TIBC Routine 10/05/2024 6:08 AM EDT PROTIME-INR Routine 10/05/2024 6:08 AM EDT CBC WITH AUTO DIFFERENTIAL Routine 10/05/2024 6:08 AM EDT BASIC METABOLIC PANEL W/ REFLEX TO MG FOR LOW K Routine 10/05/2024 6:08 AM EDT EKG 12-LEAD Routine 10/04/2024 3:45 PM EDT VAS DUP LOWER EXTREMITY VENOUS BILATERAL Routine 10/04/2024 10:35 AM EDT Lower extremity edema BLOOD OCCULT STOOL SCREEN #1 [employer] Label Print 10/04/2024 8:36 AM EDT PROTIME-INR Routine 10/04/2024 6:40 AM EDT CBC WITH AUTO DIFFERENTIAL Routine 10/04/2024 6:40 AM EDT BASIC METABOLIC PANEL W/ REFLEX TO MG FOR LOW K Routine 10/04/2024 6:40 AM EDT RETICULOCYTES Routine 10/03/2024 6:23 AM EDT LACTATE DEHYDROGENASE Routine 10/03/2024 6:23 AM EDT HAPTOGLOBIN Routine 10/03/2024 6:23 AM EDT FERRITIN Routine 10/03/2024 6:23 AM EDT IRON AND TIBC Routine 10/03/2024 6:23 AM EDT VITAMIN B12 & FOLATE Routine 10/03/2024 6:23 AM EDT MAGNESIUM Routine 10/03/2024 6:23 AM EDT PROTIME-INR Routine 10/03/2024 6:23 AM EDT CBC WITH AUTO DIFFERENTIAL Routine 10/03/2024 6:23 AM EDT BASIC METABOLIC PANEL W/ REFLEX TO MG FOR LOW K Routine 10/03/2024 6:23 AM EDT LEGIONELLA ANTIGEN, URINE [employer] Label Print 10/02/2024 3:45 PM EDT URINALYSIS WITH MICROSCOPIC [employer] Label Print 10/02/2024 3:43 PM EDT CULTURE, URINE [employer] Label Print 10/02/2024 3:43 PM EDT RESPIRATORY PANEL, MOLECULAR, WITH COVID-19 [employer] Label Print 10/02/2024 12:52 PM EDT MRSA DNA PROBE, NASAL [employer] Label Print 10/02/2024 12:52 PM EDT CBC WITH AUTO DIFFERENTIAL Routine 10/02/2024 11:39 AM EDT BASIC METABOLIC PANEL Routine 10/02/2024 11:39 AM EDT TSH REFLEX TO FT4 Routine 10/02/2024 11: 39 AM EDT PROTIME-INR Routine 10/02/2024 11:39 AM EDT PROCALCITONIN Routine 10/02/2024 11:39 AM EDT MYCOPLASMA PNEUMONIAE ANTIBODY, IGM Routine 10/02/2024 11:39 AM EDT from Last 3 Months Results * (ABNORMAL) Basic Metabolic Panel w/ Reflex to MG (10/05/2024 6:08 AM EDT) Only the most recent of3 resultswithin the time period is included. Sodium 141 136 - 145 mmol/L 10/05/2024 6:08 AM [facility] Potassium 3.3(L) 3.7 - 5.3 mmol/L 10/05/2024 6:08 AM [facility] Chloride 105 98 - 107 mmol/L 10/05/2024 6:08 AM [facility] CO2 27 20 - 31 mmol/L 10/05/2024 6:08 AM [facility] Anion Gap 9 9 - 16 mmol/L 10/05/2024 6:08 AM [facility] Glucose 97 74 - 99 mg/dL 10/05/2024 6:08 AM [facility] BUN 24(H) 8 - 23 mg/dL 10/05/2024 6:08 AM [facility] Creatinine 1.9(H) 0.7 - 1.2 mg/dL 10/05/2024 6:08 AM [facility] Est, Glom Filt Rate 35(L) >60 mL/min/1.7 3m2 10/05/2024 6:08 AM [facility] Comment: These results are not intended for use in patients <18 years of age. eGFR results are calculated without a race factor using the 2020 CKD-EPI equation. Careful clinical correlation is recommended, particularly when comparing to results calculated using previous equations. The CKD-EPI equation is less accurate in patients with extremes of muscle mass, extra-renal metabolism of creatine, excessive creatine ingestion, or following therapy that affects renal tubular secretion. Calcium 8.6 8.6 - 10.4 mg/dL 10/05/2024 6:08 AM [facility] Blood BLOOD SPECIMEN / Unknown 10/05/2024 6:08 AM EDT 10/05/2024 6:09 AM EDT us Gwendolyn Pink MD CHEMISTRY ORDERABLES Final Resul t [facility] [address] [address], [facility] [phone] * (ABNORMAL) CBC with Auto Differential (10/05/2024 6:08 AM EDT) Only the most recent of4 resultswithin the time period is included. WBC 5.1 3.5 - 11.0 k/uL 10/05/2024 6:08 AM EDT [facility] RBC 4.65 4.5 - 5.9 m/uL 10/05/2024 6:08 AM EDT [facility] Hemoglobin 11.5(L) 13.5 - 17.5 g/dL 10/05/2024 6:08 AM EDT [facility] Hematocrit 35.3(L) 41 - 53 % 10/05/2024 6:08 AM EDT [facility] MCV 75.8(L) 80 - 100 fL 10/05/2024 6:08 AM EDT [facility] MCH 24.8(L) 26 - 34 pg 10/05/2024 6:08 AM EDT [facility] MCHC 32.7 31 - 37 g/dL 10/05/2024 6:08 AM EDT [facility] RDW 21.2(H) 11.5 - 14.9 % 10/05/2024 6:08 AM EDT [facility] Platelets 173 150 - 450 k/uL 10/05/2024 6:08 AM EDT [facility] MPV 8.1 6.0 - 12.0 fL 10/05/2024 6:08 AM EDT [facility] Neutrophils % 58 36 - 66 % 10/05/2024 6:08 AM EDT [facility] Lymphocytes % 30 24 - 44 % 10/05/2024 6:08 AM EDT [facility] Monocytes % 7 1 - 7 % 10/05/2024 6:08 AM EDT [facility] Eosinophils % 4 0 - 4 % 10/05/2024 6:08 AM EDT [facility] Basophils % 1 0 - 2 % 10/05/2024 6:08 AM EDT [facility] Immature Granulocytes % 0 0 % 10/05/2024 6:08 AM EDT [facility] Neutrophils Absolute 2.96 1.3 - 9.1 k/uL 10/05/2024 6:08 AM EDT [facility] Lymphocytes Absolute 1.53 1.0 - 4.8 k/uL 10/05/2024 6:08 AM EDT [facility] Monocytes Absolute 0.36 0.1 - 1.3 k/uL 10/05/2024 6:08 AM EDT [facility] Eosinophils Absolute 0.20 0.0 - 0.4 k/uL 10/05/2024 6:08 AM EDT [facility] Basophils Absolute 0.05 0.0 - 0.2 k/uL 10/05/2024 6:08 AM EDT [facility] Immature Granulocytes Absolute 0.00 0.00 - 0.30 k/uL 10/05/2024 6:08 AM EDT [facility] Morphology ANISOCYTOSIS PRESENT 10/05/2024 6:08 AM EDT [facility] Morphology HYPOCHROMIA PRESENT 10/05/2024 6:08 AM EDT [facility] Morphology FEW ELLIPTOCYTES 10/05/2024 6:08 AM EDT [facility] Blood BLOOD SPECIMEN / Unknown 10/05/2024 6:08 AM EDT 10/05/2024 6:09 AM EDT us Gwendolyn Pink MD HEMATOLOGY ORDERABLES Final Resu lt [facility] [address] [address], [facility] [phone] * Iron and TIBC (10/05/2024 6:08 AM EDT) Only the most recent of2 resultswithin the time period is included. Iron 103 61 - 157 ug/dL 10/05/2024 6:08 AM EDT [facility] TIBC 250 250 - 450 ug/dL 10/05/2024 6:08 AM EDT [facility] Flynn Iron % Saturation 41 20 - 55 % 10/05/2024 6:08 AM EDT [facility] UIBC 147 112 - 347 ug/dL 10/05/2024 6:08 AM EDT [facility] Blood BLOOD SPECIMEN / Unknown 10/05/2024 6:08 AM EDT 10/05/2024 6:09 AM EDT Gwendolyn Pink MD CHEMISTRY ORDERABLES Final Resul t Performing Organization Address City/[facility]/ZIP Co de Phone Number [facility] [address] [facility] [place] [address], [facility] [phone] [place] [address], [facility] [phone] * (ABNORMAL) Protime-INR (10/05/2024 6:08 AM EDT) Only the most recent of4 resultswithin the time period is included. Protime 24.9(H) 11.8 - 14.6 sec 10/05/2024 6:08 AM EDT [facility] INR 2.0 10/05/2024 6:08 AM EDT [facility] Comment: Therapeutic Range: Moderate Anticoagulant Intensity: INR = 2.0-3.0 High Anticoagulant Intensity: INR = 2.5-3.5 Blood BLOOD SPECIMEN / Unknown 10/05/2024 6:08 AM EDT 10/05/2024 6:09 AM EDT us Gwendolyn Pink MD HEMATOLOGY ORDERABLES Final Resu lt [facility] [address] [facility] [place] [address], [facility] [phone] * Magnesium (10/05/2024 6:08 AM EDT) Only the most recent of2 resultswithin the time period is included. Magnesium 2.3 1.6 - 2.4 mg/dL 10/05/2024 6:08 AM EDT [facility] 10/05/2024 6:08 AM EDT 10/05/2024 6:09 AM EDT Gwendolyn Pink MD CHEMISTRY ORDERABLES Final Resul t [facility] [address] [phone] * EKG 12 Lead (10/04/2024 3:45 PM EDT) Ventricular Rate 73 BPM [facility] Atrial Rate 73 BPM [facility] P-R Interval 214 ms [facility] QRS Duration 118 ms [facility] Q-T Interval 428 ms [facility] QTc Calculation (Bazett) 471 ms [facility] MUSE P [place] 95 degrees [facility] R [place] -16 degrees [facility]USE T [place] 109 degrees [facility] 10/04/2024 3:45 PM EDT Narrative [facility] - 10/05/2024 7:57 AM EDT Sinus rhythm with 1st degree A-V block Incomplete left bundle branch block ST & T wave abnormality, consider anterior ischemia Abnormal ECG When compared with ECG of 04-Oct-2024 15:45, (unconfirmed) No significant change was found Procedure Note All Cornejo DO - 10/05/2024 Sinus rhythm with 1st degree A-V block Incomplete left bundle branch block ST & T wave abnormality, consider anterior ischemia Abnormal ECG When compared with ECG of 04-Oct-2024 15:45, (unconfirmed) No significant change was found us Gwendolyn Pink MD ECG ORDERABLES Final Result Performing Organization Address City/[facility]/ZIP Co de Phone Number PN STC MUSE * Vascular duplex lower extremity venous bilateral (10/04/2024 10:35 AM EDT) Body Surface Area 2.04 m2 [facility] CV CPACS Anatomical Region Laterality Modality Vascular Ultraso und Narrative 10/04/2024 11:33 AM EDT No evidence of deep vein or superficial vein thrombosis in the right lower extremity. Vessels demonstrate normal compressibility, color filling, and phasic and spontaneous flow. No evidence of deep vein or superficial vein thrombosis in the left lower extremity. Vessels demonstrate normal compressibility, color filling, and phasic and spontaneous flow. Right Lower Venous No evidence of deep vein or superficial vein thrombosis. The common femoral, saphenofemoral junction, profunda femoral, femoral, popliteal, greater saphenous, and small saphenous veins were imaged in the transverse view and showed normal compressibility. The common femoral, popliteal, and middle femoral veins were imaged in the longitudinal view and showed normal color filling and normal phasic and spontaneous flow. Limited visualization of the right deep gastroc veins. Limited visualization of the right peroneal veins. Left Lower Venous No evidence of deep vein or superficial vein thrombosis. The common femoral, saphenofemoral junction, profunda femoral, femoral, popliteal, greater saphenous, and small saphenous veins were imaged in the transverse view and showed normal compressibility. The common femoral, popliteal, and middle femoral veins were imaged in the longitudinal view and showed normal color filling and normal phasic and spontaneous flow. Limited visualization of the left deep gastroc veins. Limited visualization of the left peroneal veins. Incidental finding: Dilation of the left popliteal artery noted measuring 2.588 cm by 2.547 cm with a residual lumen measuring 1.535 cm by 1.293 cm.Color flow seen in residual lumen. 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 During the study longitudinal and transverse views were obtained. Study was technically difficult due to: bedside exam, patient positioning and edema. us Quincy SOUZA VASCULAR ORDERABLES Final Re sult * Blood Occult Stool Screen #1 (10/04/2024 8:36 AM EDT) Pathologist [facility] Occult Blood, Stool #1 NEGATIVE NEGATIVE 10/04/2024 8:36 AM EDT [facility] Date, Stool #[id number] 10/04/2024 8:36 AM EDT [facility] Time, Stool #1 [id number] 10/04/2024 8:36 AM EDT [facility] STOOL SPECIMEN / Unknown 10/04/2024 8:36 AM EDT 10/04/2024 8:46 AM EDT us Gwendolyn Pink MD BODY FLUIDS AND STOOLS ORDERABLE S Final Result [facility] [address] [place] [address]. [place] [address], [facility] [phone] * (ABNORMAL) Vitamin B12 & Folate (10/03/2024 6:23 AM EDT) [facility] B-12 377 232 - 1245 pg/mL 10/03/2024 6:23 AM EDT [facility] Folate 28.5(H) 4.8 - 24.2 ng/mL 10/03/2024 6:23 AM EDT [facility] 10/03/2024 6:23 AM EDT 10/03/2024 6:24 AM EDT us Gwendolyn Pink MD CHEMISTRY ORDERABLES Final Resul t [facility] [address] [place] [address]. [place] [address], [facility] [phone] [place] [address], [facility] [phone] * (ABNORMAL) Reticulocytes (10/03/2024 6:23 AM EDT) Pathologist [facility] Retic Ct Pct 0.9 0.5 - 2.5 % 10/03/2024 6:23 AM EDT [facility] Absolute Retic # 0.038 0.030 - 0.080 M/uL 10/03/2024 6:23 AM EDT [facility] Immature Retic Fract 11.9 2.7 - 18.3 % 10/03/2024 6:23 AM EDT [facility] Retic Hemoglobin 23.4(L) 28.2 - 35.7 pg 10/03/2024 6:23 AM EDT [facility] 10/03/2024 6:23 AM EDT 10/03/2024 6:24 AM EDT us Gwendolyn Pink MD HEMATOLOGY ORDERABLES Final Resu lt Performing Organization Address [facility]/ZIP Co de Phone Number [facility] [address] [place] [address]. [address] [phone] * (ABNORMAL) Lactate Dehydrogenase (10/03/2024 6:23 AM EDT) LD 132(L) 135 - 225 U/L 10/03/2024 6:23 AM EDT [facility] 10/03/2024 6:23 AM EDT 10/03/2024 6:24 AM EDT us Gwendolyn Pink MD CHEMISTRY ORDERABLES Final Resul t Performing Organization Address [facility] Co de Phone Number [facility] [address] [place] [address]. [place] [address], [facility] [phone] * (ABNORMAL) Haptoglobin (10/03/2024 6:23 AM EDT) Haptoglobin 244(H) 30 - 200 mg/dL 10/03/2024 6:23 AM EDT [facility] Flynn 10/03/2024 6:23 AM EDT 10/03/2024 6:24 AM EDT us Gwendolyn Pink MD CHEMISTRY ORDERABLES Final Resul t Performing Organization Address City/[facility]/ZIP Co de Phone Number [facility] [address] [facility] [place] [address], [facility] [phone] [address], [facility] [phone] * Ferritin (10/03/2024 6:23 AM EDT) Ferritin 54 ng/mL 10/03/2024 6:23 AM EDT [facility] Comment:No reference range e stablished for this age/gender. 10/03/2024 6:23 AM EDT 10/03/2024 6:24 AM EDT Gwendolyn Pink MD CHEMISTRY ORDERABLES Final Resul t Performing Organization Address [facility]/ZIP Co de Phone Number [facility] [address] [place] [address]. [place] [address], [facility] [phone] [address], [facility] [phone] * LEGIONELLA ANTIGEN, URINE (10/02/2024 3:45 PM EDT) Pathologist [facility] Legionella Pneumophilia Ag, Urine NEGATIVE NEGATIVE 10/02/2024 3:45 PM EDT [facility] Comment: L. pneumophila serogroup 1 antigen not detected. A negative result does not exclude infection with Leginella pnemophila serogroup 1 nor does it rule out other microbial-caused respiratory infections of disease caused by other serogroups of Legionella pneumophila. Urine (Urine) 10/02/2024 3:4 5 PM EDT 10/02/2024 3:45 PM EDT Gwendolyn Pink MD MICROBIOLOGY - GENERAL ORDERABLE S Final Result Performing Organization Address City/[facility]/ZIP Co de Phone Number [facility] [address] [place] [address]. [place] [address], [place] [phone] [address], [facility] [phone] * (ABNORMAL) Urinalysis with Microscopic (10/02/2024 3:43 PM EDT) Color, UA Yellow Yellow 10/02/2024 3:43 PM EDT [facility] Turbidity UA Clear Clear 10/02/2024 3:43 PM EDT [facility] Glucose, Ur NEGATIVE NEGATIVE mg/dL 10/02/2024 3:43 PM EDT [facility] Bilirubin, Urine NEGATIVE NEGATIVE 10/02/2024 3:43 PM EDT [facility] Ketones, Urine NEGATIVE NEGATIVE mg/dL 10/02/2024 3:43 PM EDT [facility] Specific [place], UA 1.017 1.000 - 1.030 10/02/2024 3:43 PM EDT [facility] Urine Hgb TRACE(A) NEGATIVE 10/02/2024 3:43 PM EDT [facility] pH, Urine 6.0 5.0 - 8.0 10/02/2024 3:43 PM EDT [facility] Protein, UA 1+(A) NEGATIVE mg/dL 10/02/2024 3:43 PM EDT [facility] Urobilinogen, Urine Normal 0.0 - 1.0 EU/dL 10/02/2024 3:43 PM T [facility] Nitrite, Urine POSITIVE(A) NEGATIVE 3:43 PM EDT [facility] Leukocyte Esterase, Urine MOD(A) NEGATIVE 10/02/2024 3:43 PM EDT [facility] WBC, UA 51 TO 100(A) 0 TO 5 /HPF 10/02/2024 3:43 PM EDT [facility] RBC, UA 6 TO 9(A) 0 TO 2 /HPF 10/02/2024 3:[facility] Casts UA 6 TO 9(A) None /LPF 10/02/2024 3:43 PM EDT [facility] Epithelial Cells, UA 0 TO 2 /HPF 10/02/2024 3:43 PM EDT [facility] Bacteria, UA FEW(A) None 10/02/2024 3:43 PM EDT [facility] Urine URINE SPECIMEN / Unknown 10/02/2024 3:43 PM EDT 10/02/2024 3:46 PM EDT us Gwendolyn Pink MD URINE ORDERABLES Final Result Performing Organization Address City/[facility]/ZIP Co de Phone Number [facility] [address] [facility] [place] [address], [facility] [phone] * (ABNORMAL) Culture, Urine (10/02/2024 3:43 PM EDT) Specimen Description .CLEAN CATCH URINE 10/02/2024 3:43 PM EDT [facility] Special Requests Site: Urine 10/02/2024 3:43 PM EDT [facility] Culture ENTEROBACTER CLOACAE COMPLEX >100,000 CFU/ML(A) 10/02/2024 3:43 PM EDT [facility] Urine URINE SPECIMEN / Unknown 10/02/2024 3:43 PM EDT 10/02/2024 3:46 PM EDT Narrative Organism Antibiotic Method Susceptibility Enterobacter cloacae complex gentamicin BACTERIAL SUSCEPTIBILITY PANEL RITESH <=1: Sensitive Enterobacter cloacae complex levofloxacin BACTERIAL SUSCEPTIBILITY PANEL RITESH 1: Intermediate Enterobacter cloacae complex nitrofurantoin BACTERIAL SUSCEPTIBILITY PANEL RITESH 64: Intermediate Enterobacter cloacae complex piperacillin-tazobactam BACTERIAL SUSCEPTIBILITY PANEL RITESH 64: Intermediate Enterobacter cloacae complex tobramycin BACTERIAL SUSCEPTIBILITY PANEL RITESH <=1: Sensitive Enterobacter cloacae complex trimethoprim-sulfametho xazole BACTERIAL SUSCEPTIBILITY PANEL RITESH <=20: Sensitive Enterobacter cloacae complex cefTRIAXone BACTERIAL SUSCEPTIBILITY PANEL ROGERS CARRENO Sensitive us Gwendolyn Pink MD MICROBIOLOGY - GENERAL ORDERABLE S Final Result [facility] [address] [facility] [place] [address], [facility] [phone] [facility] [address] [place] [address], [facility] [phone] * (ABNORMAL) Respiratory Panel, Molecular, with COVID-19 (Restricted: peds pts or suitable admitted adults) (10/02/2024 12:52 PM EDT) Specimen Description .NASOPHARYN GEAL SWAB 10/02/2024 12:52 PM EDT [facility] Adenovirus PCR Not Detected Not Detected 10/02/2024 12:52 PM EDT [facility] Coronavirus 229E PCR Not Detected Not Detected 10/02/2024 12:52 PM EDT [facility] Coronavirus HKU1 PCR Not Detected Not Detected 10/02/2024 12:52 PM EDT [facility] Coronavirus NL63 PCR Not Detected Not Detected 10/02/2024 12:52 PM EDT [facility] Coronavirus OC43 PCR Not Detected Not Detected 10/02/2024 12:52 PM EDT [facility] SARS-CoV-2, PCR Not Detected Not Detected 10/02/2024 12:52 PM EDT [facility] Human Metapneumovirus PCR DETECTED(A) Not Detected 10/02/2024 12:52 PM EDT [facility] Rhino/Enterovirus PCR Not Detected Not Detected 10/02/2024 12:52 PM EDT [facility] Influenza A by PCR Not Detected Not Detected 10/02/2024 12:52 PM EDT [facility] Influenza B by PCR Not Detected Not Detected 10/02/2024 12:52 PM EDT [facility] Parainfluenza 1 PCR Not Detected Not Detected 10/02/2024 12:52 PM EDT [facility] Parainfluenza 2 PCR Not Detected Not Detected 10/02/2024 12:52 PM EDT [facility] Parainfluenza 3 PCR Not Detected Not Detected 10/02/2024 12:52 PM EDT [facility] Parainfluenza 4 PCR Not Detected Not Detected 10/02/2024 12:52 PM EDT [facility] Resp Syncytial Virus PCR Not Detected Not Detected 10/02/2024 12:52 PM EDT [facility] Bordetella parapertussis by PCR Not Detected Not Detected 10/02/2024 12:52 PM EDT [facility] B Pertussis by PCR Not Detected Not Detected 10/02/2024 12:52 PM EDT [facility] Chlamydia pneumoniae By PCR Not Detected Not Detected 10/02/2024 12:52 PM EDT [facility] Mycoplasma pneumo by PCR Not Detected Not Detected 10/02/2024 12:52 PM EDT [facility] Comment:Performed by multipl exed nucleic acid assay. Nose NASOPHARYNGEAL SWAB / Unknown 10/02/2024 12:52 PM EDT 10/02/2024 1:21 PM EDT Gwendolyn Pink MD MICROBIOLOGY - GENERAL ORDERABLE S Final Result Performing Organization Address [facility] Co de Phone Number [facility] [address] [facility] [place] [address], [facility] [phone] [address], [facility] [phone] * MRSA DNA Probe, Nasal (10/02/2024 12:52 PM EDT) Specimen Description .NASAL SWAB 10/02/2024 12:52 PM EDT [facility] MRSA, DNA, Nasal NEGATIVE NEGATIVE 10/03/19 12:52 PM EDT [facility] Comment: NEGATIVE: MRSA DNA not detected by nucleic acid amplification. Results should be used as an adjunct to nosocomial control efforts to identify patients needing enhanced precautions. The test is not intended to identify patients with staphylococcal infections. Results should not be used to guide or monitor treatment for MRSA infections. Nose (Nasal) 10/02/2024 12:5 2 PM EDT 10/02/2024 1:21 PM EDT Gwendolyn Pink MD MICROBIOLOGY - GENERAL ORDERABLE S Final Result Performing Organization Address [facility]/ZIP Co de Phone Number [facility] [address] [facility] [place] [address], [facility] [phone] [address], [facility] [phone] * TSH reflex to FT4 (10/02/2024 11:39 AM EDT) TSH 1.29 0.27 - 4.20 uIU/mL 10/02/2024 11:39 AM EDT [facility] Blood BLOOD SPECIMEN / Unknown 10/02/2024 11:39 AM EDT 10/02/2024 11:40 AM EDT us Gwendolyn Pink MD CHEMISTRY ORDERABLES Final Resul t [facility] [address] [phone] * Procalcitonin (10/02/2024 11:39 AM EDT) Procalcitonin 0.08 0.00 - 0.09 ng/mL 10/02/2024 11:39 AM EDT [facility] Comment: Suspected Sepsis: <0.50 ng/mL Low likelihood of sepsis. 0.50-2.00 ng/mL Increased likelihood of sepsis. Antibiotics encouraged. >2.00 ng/mL High risk of sepsis/shock. Antibiotics strongly encouraged. Suspected Lower Resp Tract Infections: <0.24 ng/mL Low likelihood of bacterial infection. >0.24 ng/mL Increased likelihood of bacterial infection. Antibiotics encouraged. With successful antibiotic therapy, PCT levels should decrease rapidly. (Half- life of 24 to 36 hours.) Procalcitonin values from samples collected within the first 6 hours of systemic infection may still be low. Retesting may be indicated. Values from day 1 and day 4 can be entered into the Change in Procalcitonin Calculator (www.gvdovp-cjn-cblqbypcjz.com) to determine the patient's Mortality Risk Prognosis In healthy neonates, plasma Procalcitonin (PCT) concentrations increase gradually after , reaching peak values at about 24 hours of age then decrease to normal values below 0.5 ng/mL by 48-72 hours of age. Blood BLOOD SPECIMEN / Unknown 10/02/2024 11:39 AM EDT 10/02/2024 11:40 AM EDT us Gwendolyn Pink MD CHEMISTRY ORDERABLES Final Resul t [facility] [address] [place] [address], [facility] [phone] * Mycoplasma Ab,IgM (10/02/2024 11:39 AM EDT) Pathologist [facility] Mycoplasma pneumo IgM 0.11 <0.91 10/02/2024 11:39 AM EDT [facility] Comment: Reference Range: <=0.90 Negative 0.91-1.09 Equivocal >=1.10 Positive Blood BLOOD SPECIMEN / Unknown 10/02/2024 11:39 AM EDT 10/02/2024 11:40 AM EDT Gwendolyn Pink MD IMMUNOLOGY ORDERABLES Final Resu lt [facility] [address] [facility] [place] [address], [facility] [phone] [place] [address], [facility] [phone] * (ABNORMAL) Basic Metabolic Panel (10/02/2024 11:39 AM EDT) [facility] Sodium 141 136 - 145 mmol/L 10/02/2024 11:39 AM EDT [facility] Potassium 3.8 3.7 - 5.3 mmol/L 10/02/2024 11:39 AM EDT [facility] Chloride 106 98 - 107 mmol/L 10/02/2024 11:39 AM EDT [facility] CO2 24 20 - 31 mmol/L 10/02/2024 11:39 AM EDT [facility] Anion Gap 11 9 - 16 mmol/L 10/02/2024 11:39 AM EDT [facility] Glucose 105(H) 74 - 99 mg/dL 10/02/2024 11:39 AM EDT [facility] BUN 22 8 - 23 mg/dL 10/02/2024 11:39 AM EDT [facility] Creatinine 1.9(H) 0.7 - 1.2 mg/dL 10/02/2024 11:39 AM EDT [facility] Est, Glom Filt Rate 35(L) >60 mL/min/1.7 3m2 10/02/2024 11:39 AM EDT [facility] Comment: These results are not intended for use in patients <18 years of age. eGFR results are calculated without a race factor using the 2020 CKD-EPI equation. Careful clinical correlation is recommended, particularly when comparing to results calculated using previous equations. The CKD-EPI equation is less accurate in patients with extremes of muscle mass, extra-renal metabolism of creatine, excessive creatine ingestion, or following therapy that affects renal tubular secretion. Calcium 8.8 8.6 - 10.4 mg/dL 10/02/2024 11:39 AM EDT [facility] 10/02/2024 11:3 9 AM EDT 10/02/2024 11:40 AM EDT Gwnedolyn Pink MD CHEMISTRY ORDERABLES Final Resul t [facility] [address] [place] [address], [facility] [phone] from Last 3 Months Insurance MEDICARE [employer] MEDICARE SUPP MEDICARE Member Subscriber Plan / Payer (Ef fective 2008-Present) Name:Bebeto Anderson Relation to Subscriber:Self Name:Bebeto Anderson Payer ID:Not on file Group ID:Not on file Type:Not on file Address: [id number] [employer] MEDICARE SUPP MEDICARE [employer] MEDICARE SUPP Advance Directives Documents on File Type Date Recorded Patient Quality Assurance Supervisor Body Expl anation ACP-Advance Directive 10/06/2024 4:23 PM ACP-Do Not Resuscitate 10/06/2024 4:22 PM * DNR-CCA (Latest Code Status on File) Date Activated Date Inactivated Comments 10/04/2024 3:24 PM 10/05/2024 4:27 PM * Full Code Date Activated Date Inactivated Comments 10/02/2024 10:49 AM 10/04/2024 3:24 PM Healthcare Agents on File Name Relationship Healthcare Agent Relationshi p Communication Estella Anderson Spouse Primary Decision Maker Antonio Anderson Child Secondary Decision Maker Lindy Anderson Child Secondary Decision Maker Care Teams Drum Stock Clerk Relationship Specialty Start Date End Date Stanley Toledo MD [address] [place] [address] PCP - General 10/02/24
--- OUTSIDE RECORDS SUMMARY | 2024-10-27 11:26 | XMS_ITS | Clinical Summary ---
Author Organization [facility] Address [address] [place] [address] Care Team Providers Care Psych Np Name Role Phone Stanley Toledo MD Primary Care Provider Social History Tobacco Use Types Packs/Day Years Used Date Smoking Tobacco: Never Assessed Sex and Gender Information Value Date Recorded Sex Assigned at Not on file Legal Sex Male 8:32 AM EDT Gender Identity Not on file Sexual Orientation Not on file Plan of Treatment Health Maintenance Due Date Last Done Comments Anxiety Screening 11/30/1961 Depression Screening 11/30/1961 DTaP,Tdap,Td Vaccine (1 - Tdap) 11/30/1962 Diabetes Screening 11/30/1988 Pneumococcal Vaccine: 50+ (1 of 1 - PCV) 11/30/1993 Shingrix Vaccine (1 of 2) 11/30/1993 RSV Vaccine (1 - 1-dose 75+ series) 11/30/2018 Covid-19 Vaccine ( season) 2024 Advance Directive Discussion 05/26/2024 Influenza Vaccine (Season Ended) 2025 Insurance MEDICARE Care Teams Psych Np Relationship Specialty Start Date End Date Stanley Toledo MD [address] [place] [address] PCP - General Family Medicine 01/21/24
--- OUTSIDE RECORDS SUMMARY | 2024-10-27 11:26 | XMS_ITS | Encounter Summary ---
Author Organization [facility] Address [address] [facility] [place] [address] Care Team Providers Care Residential Treatment Staff Name Role Phone Stanley Toledo MD Unavailable [phone] Stanley Toledo MD Primary Care Provider + [phone] Dora Santiago TOXICOLOGY SUPERVISOR Unavailable Christina Goddard TOXICOLOGY SUPERVISOR Unavailable Unavailable Joi Zhang TOXICOLOGY SUPERVISOR Unavailable Unavailable Encounter Details Date Type Department Care Team ([facility] Contact Info) Description 01/02/2023 Orders Only [facility] [address] [place] [address] Stanley Toledo MD 112 [facility] [address] [place] [address] (Fax) Acute diffuse otitis externa of right ear (Primary Dx) Social History Tobacco Use Types Packs/Day Years [...] Upcoming Encounters Date Type Department Care Team ([facility] Contact Info) Description 11/09/2024 2:00 PM EDT Office Visit [facility] [address] [facility] [address] [place] [address] Stanley Toledo MD [address] [place] [address] documented as of this encounter Visit Diagnoses Diagnosis Acute diffuse otitis externa of right ear- Primary documented in this encounter Care Teams Residential Treatment Staff Relationship Specialty Start Date End Date Stanley Toledo MD [address] [place] [address] PCP - ACO Reach 10/17/22 Stanley Toledo MD [address] [place] [address] PCP - General Family Medicine 11/20/22 Dora Santiago LPN Licensed Practical Nurse Family Medicine 12/22/2308/26 Christina Goddard LPN Licensed Practical Nurse Family Medicine 12/25/23 Joi Zhang LPN 08/26/24 documented as of this encounter
--- OUTSIDE RECORDS SUMMARY | 2024-10-27 11:26 | XMS_ITS | Encounter Summary ---
Author Organization [facility] Address [address] [place] [address] Care Team Providers Care English Teacher Name Role Phone Stanley Toledo MD Unavailable [phone] Stanley Toledo MD Primary Care Provider + [phone] Dora Santiago PANELBOARD OPERATOR Unavailable Christina Goddard PANELBOARD OPERATOR Unavailable Unavailable Joi Zhang PANELBOARD OPERATOR Unavailable Unavailable Encounter Details Date Type Department Care Team (Late Contact Info) Description 08/06/2023 Abstract [facility] [address] [place] [address] Stanley Toledo MD [address] [address] Social History Tobacco Use Types Packs/Day Years [...] Office Visit [facility] 100 [address] [facility] 100 [place] [address] Stanley Toledo MD 112 [facility] 100 [place] [address] (Fax) documented as of this encounter Visit Diagnoses Not on filedocumented in this encounter Additional Health Concerns Assessment Noted Time PHQ-9 Depression Total Score: 3 05/12/20 23 1:00 PM EST documented as of this encounter Care Teams English Teacher Relationship Specialty Start Date End Date Stanley Toledo MD [address] [place] [address] PCP - ACO Reach 10/17/22 Stanley Toledo MD [address] [facility] 100 [place] [address] PCP - General Family Medicine 11/20/22 Dora Santiago LPN Licensed Practical Nurse Family Medicine 12/22/2308/26 Christina Goddard LPN Licensed Practical Nurse Family Medicine 12/25/23 Joi Zhang LPN 08/26/24 documented as of this encounter
--- OUTSIDE RECORDS SUMMARY | 2024-10-27 11:26 | XMS_ITS | Encounter Summary ---
Author Organization [facility] Address [address] [place] [address] Care Team Providers Care Assistant City Attorney Name Role Phone Stanley Toledo MD Unavailable [phone] Stanley Toledo MD Primary Care Provider + [phone] Joi Zhang LPN Unavailable Unavailable Encounter Details Date Type Department Care Team (Late st Contact Info) Description 10/27/2024 Abstract [facility] [address] [place] [address] Stanley Toledo MD [address] [place] [address] Social History Tobacco Use Types Packs/Day Years [...] 12/31/2023 How often do you attend chur or gnosticism services? Never 12/31/2023 Do you belong to any clubs o r organizations such as congregational groups, unions, fraternal or athletic groups, or [...] Recorded Patient Health Questionnaire-2 Score 0 05/13/2024 [facility] - Occupational Stress Questionnaire Answer Date [...] any time in the past 12 m [facility], were you homeless or living in a detention (including now)? No 12/31/2023 Sex and Gender [...] FM [address] [place] [address] Stanley Toledo MD [address] [place] [address] documented as of this encounter Visit Diagnoses Not on filedocumented in this encounter Additional Health Concerns Assessment Noted Time PHQ-9 Depression Total Score: 3 05/13/20 24 2:00 PM EST A fall risk assessment has been complete d for the patient 12/31/2023 8:54 AM EDT documented as of this encounter Care Teams Assistant City Attorney Relationship Specialty Start Date End Date Stanley Toledo MD [address] [place] [address] PCP - ACO Reach 10/17/22 Stanley Toledo MD [address] [address] PCP - General Family Medicine 11/20/22 Joi Zhang LPN 08/26/24 documented as of this encounter
--- OUTSIDE RECORDS SUMMARY | 2024-10-27 11:26 | XMS_ITS | Encounter Summary ---
Author Organization [facility] Address [address] [place] [address] Care Team Providers Care Senior Mechanical Project Engineer Name Role Phone Stanley Toledo MD Unavailable [phone] Stanley Toledo MD Primary Care Provider + [phone] Dora Santiago LPN Unavailable Joi Zhang LPN Unavailable Unavailable Encounter Details Date Type Department Care Team (Late st Contact Info) Description 03/23/2024 Clinisync Result Encounter [facility] External Department Unsolicited [...] often do you attend chur ch or church services? Never 12/31/2023 Do you belong to any clubs o r organizations such as religion groups, unions, fraternal or athletic groups, or [...] Recorded Patient Health Questionnaire-2 Score 0 12/31/2023 [facility] - Occupational Stress [...] any time in the past 12 m [facility], were you homeless or living in [...] Office Visit [facility] 100 [address] [facility] [address] [place] [address] Stanley Toledo MD [address] [facility] [address] [place] [address] documented as of this encounter Procedures Procedure Name Priority Date/Time Associated Diagnosis Comments RT PULMONARY FUNCTION TEST 03/23/2024 12:59 PM EDT documented in this encounter Results * RT PULMONARY FUNCTION TEST (03/23/2024 12:59 PM EDT) Anatomical Region Laterality Modality Other 03/23/2024 12:5 9 PM EDT Narrative 03/24/2024 5:50 PM EDT The [address] [address] Respiratory Report Signed Patient: ALEX GRAJEDA MR#: [id number] : 1945 Acct:[id number] Age/Sex: 78 / M ADM Date: 03/23/24 Loc: CARD Attending Dr: MAGDY AL Ordering Physician: MAGDY AL Date of Service: 03/23/24 Procedure(s): RT pulmonary function test Accession Number(s): [id number] cc: [facility] Test Date: 2024-03-23 Pat Name: ALEX GRAJEDA Department: Room: - Gender: Male [employer] Supervisor: Reymundo Alamo RRT : 1945 Requested By: 358 Order Number: [id number] Reading MD: Aayush Gallo Interpretive Statements Pulmonary function testing was completed according to ATS criteria. Findings were considered accurate and reproducible, with exception of DLCO which did not meet ATS standards and was ultimately not obtained. Both pre- and post-bronchodilator values utilized for spirometry. No prior studies available for comparison. Spirometry (based on pre-bronchodilator values): -FEV1/FVC: Reduced @ 48% -FEV1: Severely reduced @ 49% -FVC: Reduced @ 75% -There is a positive bronchodilator response in FEV1 and FVC. Lung volumes by plethysmography: -RV: Increased @ 171% -TLC: Normal @ 108% Diffusion capacity: -Unable to obtain Flow-volume loop: -Severe obstructive pattern Impressions: -Spirometry suggests severe obstruction. There is a positive bronchodilator response. An elevated RV suggests air trapping. Overall study suggests either asthma or COPD with a positive bronchodilator response. Clinical correlation required. Electronically Signed On 03-24-2024 17:50:01 EDT by Aayush Gallo Dictated By: Aayush Gallo D.O. Signed By: 03/24/24 1750 DD/ 1259 TD/TT: Scrubber System Attendant: Procedure Note Radiology, Radiologist, MD - 03/24/2024 [place] [address] Respiratory Report Signed Patient: ALEX GRAJEDA HMR#: [id number] : 1945cct:[id number] Age/Sex: 78 / MADM Date: 03/23/24 Loc: CARD Attending Dr: MAGDY AL Ordering Physician: MAGDY AL Date of Service: 03/23/24 Procedure(s): RT pulmonary function test Accession Number(s): [id number] cc: [facility] Test Date: 2024-03-23 Pat Name: ALEX GRAJEDA Department: Room: - Gender: Male [employer] Supervisor: Reymundo Alamo RRT : 1945 Requested By: 358 Order Number: [id number] Reading MD: Aayush Gallo Interpretive Statements Pulmonary function testing was completed according to ATS criteria.Findings were considered accurate and reproducible, with exception of DLCO whichdid not meet ATS standards and was ultimately not obtained. Both pre- and post-bronchodilator values utilized for spirometry. No prior studies available for comparison. Spirometry (based on pre-bronchodilator values): -FEV1/FVC: Reduced @ 48% -FEV1: Severely reduced @ 49% -FVC: Reduced @ 75% -There is a positive bronchodilator response in FEV1 and FVC. Lung volumes by plethysmography: -RV: Increased @ 171% -TLC: Normal @ 108% Diffusion capacity: -Unable to obtain Flow-volume loop: -Severe obstructive pattern Impressions: -Spirometry suggests severe obstruction. There is a positivebronchodilator response. An elevated RV suggests air trapping. Overall study suggestseither asthma or COPD with a positive bronchodilator response. Clinicalcorrelation required. Electronically Signed On 03-24-2024 17:50:01 EDT by Aayush Gallo Dictated By: Aayush Gallo D.O. Signed By:03/24/24 1752 DD/ 1259 TD/TT: Scrubber System Attendant: Generic External Data Provider [facility] Final Result documented in this encounter Visit Diagnoses Not on filedocumented in this encounter Additional Health Concerns Assessment Noted Time PHQ-9 Depression Total Score: 3 05/12/20 23 1:00 PM EST A fall risk assessment has been complete d for the patient 12/31/2023 8:54 AM EDT documented as of this encounter Care Teams Senior Mechanical Project Engineer Relationship Specialty Start Date End Date Stanley Toledo MD [address] [place] [address] PCP - ACO Reach 10/17/22 Stanley Toledo MD 112 [facility] [address] [place] [address] PCP - General Family Medicine 11/20/22 Dora Santiago LPN Licensed Practical Nurse Family Medicine 12/22/2308/26 Joi Zhang LPN 08/26/24 documented as of this encounter
--- OUTSIDE RECORDS SUMMARY | 2024-10-27 11:26 | XMS_ITS | Encounter Summary ---
Author Organization [facility] Address [address] [place] [address] Care Team Providers Care Sawmill Supervisor Name Role Phone Stanley Toledo MD Unavailable [phone] Stanley Toledo MD Primary Care Provider + [phone] Dora Santiago WELL SERVICE FLOORPERSON Unavailable Christina Goddard WELL SERVICE FLOORPERSON Unavailable Unavailable Joi Zhang WELL SERVICE FLOORPERSON Unavailable Unavailable Encounter Details Date Type Department Care Team (Late Contact Info) Description 04/29/2023 Abstract [facility] S [address] [place] [address] Stanley Toledo MD [address] [address] Social History Tobacco Use Types Packs/Day Years [...] Office Visit [facility] [address] [facility] 100 [place] [address] Stanley Toledo MD 112 [facility] 100 [place] [address] documented as of this encounter Visit Diagnoses Not on filedocumented in this encounter Care Teams Sawmill Supervisor Relationship Specialty Start Date End Date Stanley Toledo MD [address] [place] [address] PCP - ACO Reach 10/17/22 Stanley Toledo MD [address] [place] [address] PCP - General Family Medicine 11/20/22 Dora Santiago LPN Licensed Practical Nurse Family Medicine 12/22/2308/26 Christina Goddard LPN Licensed Practical Nurse Family Medicine 12/25/23 Joi Zhang LPN 08/26/24 documented as of this encounter
--- OUTSIDE RECORDS SUMMARY | 2024-10-27 11:26 | XMS_ITS | Encounter Summary ---
Author Organization [facility] Address [address] [place] [address] Care Team Providers Care Sales Relationship Manager Name Role Phone Stanley Toledo MD Unavailable [phone] Stanley Toledo MD Primary Care Provider + [phone] Dora Santiago DEDICATED TRUCK DRIVER Unavailable Christina Goddard DEDICATED TRUCK DRIVER Unavailable Unavailable Joi Zhang DEDICATED TRUCK DRIVER Unavailable Unavailable Encounter Details Date Type Department Care Team (Late Contact Info) Description 02/10/2023 Abstract [facility] [address] [place] [address] Stanley Toledo MD [address] [address] Social History Tobacco Use Types Packs/Day Years [...] Office Visit [facility] CI FM 100 112 [facility] 100 [place] [address] Stanley Toledo MD 112 [facility] 100 [place] [address] documented as of this encounter Visit Diagnoses Not on filedocumented in this encounter Care Teams Sales Relationship Manager Relationship Specialty Start Date End Date Stanley Toledo MD [address] [place] [address] PCP - ACO Reach 10/17/22 Stanley Toledo MD [address] [place] [address] PCP - General Family Medicine 11/20/22 Dora Santiago LPN Licensed Practical Nurse Family Medicine 12/22/2308/26 Christina Goddard LPN Licensed Practical Nurse Family Medicine 12/25/23 Joi Zhang LPN 08/26/24 documented as of this encounter
--- OUTSIDE RECORDS SUMMARY | 2024-10-27 11:26 | XMS_ITS | Encounter Summary ---
Author Organization [facility] Address [address] [place] [address] Care Team Providers Care Large Animal Veterinarian Name Role Phone Stanley Toledo MD Unavailable [phone] Stanley Toledo MD Primary Care Provider + [phone] Dora Santiago POSITION CLERK Unavailable Christina Goddard POSITION CLERK Unavailable Unavailable Joi Zhang POSITION CLERK Unavailable Unavailable Encounter Details Date Type Department Care Team ([facility] Contact Info) Description 01/02/2023 Abstract [facility] BNS [address] [place] [address] Stanley Toledo MD [address] [place] [address] Social History Tobacco Use Types Packs/Day [...] FM [address] [place] [address] Stanley Toledo MD [address] [place] [address] documented as of this encounter Visit Diagnoses Not on filedocumented in this encounter Care Teams Large Animal Veterinarian Relationship Specialty Start Date End Date Stanley Toledo MD [address] [facility] 100 [place] [address] PCP - ACO Reach 10/17/22 Stanley Toledo MD [address] [facility] [address] [place] [address] PCP - General Family Medicine 11/20/22 Dora Santiago LPN Licensed Practical Nurse Family Medicine 12/22/2308/26 Christina Goddard LPN Licensed Practical Nurse Family Medicine 12/25/23 Joi Zhang LPN 08/26/24 documented as of this encounter
--- OUTSIDE RECORDS SUMMARY | 2024-10-27 11:26 | XMS_ITS | Encounter Summary ---
Author Organization [facility] Address [address] [place] [address] Care Team Providers Care Transitions Rn Care Coordinator Name Role Phone Stanley Toledo MD Unavailable [phone] Stanley Toledo MD Primary Care Provider + [phone] Dora Santiago LPN Unavailable Joi Zhang LPN Unavailable Unavailable Encounter Details Date Type Department Care Team (Late st Contact Info) Description 01/21/2024 Orders Only [facility] CI [address] [facility] 100 [place] [address] Willy Lambert MD 703 [facility] 151 [place] [address] Social History Tobacco Use Types Packs/Day Years [...] often do you attend chur ch or jewish services? Never 12/31/2023 Do you belong to any clubs o r organizations such as buddhist groups, unions, fraternal or athletic groups, or [...] Recorded Patient Health Questionnaire-2 Score 0 12/31/2023 [facility] - Occupational [...] any time in the past 12 m [facility], were you homeless or living in a [...] 100 112 [facility] [address] [place] [address] Stanley Toledo MD 112 [facility] [address] [place] [address] documented as of this encounter Procedures Procedure Name Priority Date/Time Associated Diagnosis Comments TISSUE EXAM Routine 01/21/2024 8:27 AM EDT documented in this encounter Results * Tissue exam (01/21/2024 8:27 AM EDT) Tissue us Willy Lambert MD LAB PATHOLOGY ORDERABLES Final Result documented in this encounter Visit Diagnoses Not on filedocumented in this encounter Additional Health Concerns Assessment Noted Time PHQ-9 Depression Total Score: 3 05/12/20 23 1:00 PM EST A fall risk assessment has been complete d for the patient 12/31/2023 8:54 AM EDT documented as of this encounter Care Teams Transitions Rn Care Coordinator Relationship Specialty Start Date End Date Stanley Toledo MD [address] [place] [address] PCP - ACO Reach 10/17/22 Stanley Toledo MD [address] [place] [address] PCP - General Family Medicine 11/20/22 Dora Santiago LPN Licensed Practical Nurse Family Medicine 12/22/2308/26 Joi Zhang LPN 08/26/24 documented as of this encounter
--- OUTSIDE RECORDS SUMMARY | 2024-10-27 11:26 | XMS_ITS | Encounter Summary ---
Author Organization [facility] Address [address] [place] [address] Care Team Providers Care Soft Metals Engraver Hand Name Role Phone Stanley Toledo MD Unavailable [phone] Stanley Toledo MD Primary Care Provider + [phone] Dora Santiago LPN Unavailable Joi Zhang LPN Unavailable Unavailable Encounter Details Date Type Department Care Team (Late st Contact Info) Description 04/26/2024 Clinisync Result Encounter [facility] External Department Unsolicited [...] often do you attend chur ch or nondenominational services? Never 12/31/2023 Do you belong to any clubs o r organizations such as amish groups, unions, fraternal or athletic groups, or [...] Recorded Patient Health Questionnaire-2 Score 0 12/31/2023 [facility] - Occupational [...] in the past 12 m [facility], were you homeless or living in [...] Office Visit [facility] CI FM 100 112 [facility] [address] [address] [place] [address] Stanley Toledo MD 112 [facility] [address] [place] [address] documented as of this encounter Procedures Procedure Name Priority Date/Time Associated Diagnosis Comments ITP 04/26/2024 12:19 PM EST documented in this encounter Results * ITP (04/26/2024 12:19 PM EST) Anatomical Region Laterality Modality Other 04/26/2024 12:1 9 PM EST Narrative 04/27/2024 8:20 PM EST The [address] [address] Cardiac Rehab Report Signed Patient: ALEX GRAJEDA MR#: [id number] : 1945 Acct:[id number] Age/Sex: 78 / M ADM Date: 04/26/24 Loc: CR Attending Dr: MAGDY AL Ordering Physician: Arnol Garnica D.O. Date of Service: 04/26/24 Procedure(s): ITP Accession Number(s): [id number] cc: The [facility] Test Date: 2024-04-26 Pat Name: ALEX GRAJEDA Department: Room: - Gender: Male Mate Fourth: : 1945 Requested By: ARNOL GARNICA Order Number: [id number] Silverio MD: ARNOL GARNICA Interpretive Statements Session Date: Electronically Signed On 04-27-2024 20:20:06 EST by ARNOL GARNICA Dictated By: Arnol Garnica D.O. Signed By: 04/27/24201904/27/242019 DD/ 18 TD/TT: Oil Rig Driller: Procedure Note Radiology, Radiologist, - 04/27/2024 [place] [address] Cardiac Rehab Report Signed Patient: ALEX GRAJEDA HMR#: [id number] : 1945cct:[id number] Age/Sex: 78 / MADM Date: 04/26/24 Loc: CR Attending Dr: MAGDY AL Ordering Physician: Arnol Garnica D.O. Date of Service: 04/26/24 Procedure(s): ITP Accession Number(s): [id number] cc: [facility] Test Date: 2024-04-26 Pat Name: LAEX GRAJEDA Department: Room: - Gender: Male Mate Fourth: : 1945 Requested By: ARNOL GARNICA Order Number: [id number] Silverio MD: ARNOL GARNICA Interpretive Statements Session Date: Electronically Signed On 04-27-2024 20:20:06 EST by ARNOL GARNICA Dictated By: Arnol Garnica D.O. Signed By:04/27/24201904/27/242019 DD/ 18 TD/TT: Oil Rig Driller: us Generic External Data Provider [facility] Final Result documented in this encounter Visit Diagnoses Not on filedocumented in this encounter Additional Health Concerns Assessment Noted Time PHQ-9 Depression Total Score: 3 05/12/20 23 1:00 PM EST A fall risk assessment has been complete d for the patient 12/31/2023 8:54 AM EDT documented as of this encounter Care Teams Soft Metals Engraver Hand Relationship Specialty Start Date End Date Stanley Toledo MD [address] [place] [address] PCP - ACO Reach 10/17/22 Stanley Toledo MD [address] [place] [address] [place] [address] PCP - General Family Medicine 11/20/22 Dora Santiago LPN Licensed Practical Nurse Family Medicine 12/22/2308/26 Joi Zhang LPN 08/26/24 documented as of this encounter
--- OUTSIDE RECORDS SUMMARY | 2024-10-27 11:26 | XMS_ITS | Encounter Summary ---
Author Organization [facility] Address [address] [place] [address] Care Team Providers Care Blindmaker Name Role Phone Stanley Toledo MD Unavailable [phone] Stanley Toledo MD Primary Care Provider + [phone] Dora Santiago CHANNEL MANAGER Unavailable Christina Goddard CHANNEL MANAGER Unavailable Unavailable Joi Zhang CHANNEL MANAGER Unavailable Unavailable Encounter Details Date Type Department Care Team (Late Contact Info) Description 08/13/2023 Abstract [facility]NS [address] [place] [address] Stanley Toledo MD [address] [address] Social History Tobacco Use Types Packs/Day Years [...] Office Visit [facility] CI FM 100 112 [facility] 100 [place] [address] Stanley Toledo MD 112 [facility] 100 [place] [address] (Fax) documented as of this encounter Visit Diagnoses Not on filedocumented in this encounter Additional Health Concerns Assessment Noted Time PHQ-9 Depression Total Score: 3 05/12/20 23 1:00 PM EST documented as of this encounter Care Teams Blindmaker Relationship Specialty Start Date End Date Stanley Toledo MD [address] [place] [address] PCP - ACO Reach 10/17/22 Stanley Toledo MD 112 [facility] 100 [place] [address] PCP - General Family Medicine 11/20/22 Dora Santiago LPN Licensed Practical Nurse Family Medicine 12/22/2308/26 Christina Goddard LPN Licensed Practical Nurse Family Medicine 12/25/23 Joi Zhang LPN 08/26/24 documented as of this encounter
--- OUTSIDE RECORDS SUMMARY | 2024-10-27 11:26 | XMS_ITS | Encounter Summary ---
Author Organization [facility] Address [address] [place] [address] Care Team Providers Care Weaver Needle Loom Name Role Phone Stanley Toledo MD Unavailable [phone] Stanley Toledo MD Primary Care Provider + [phone] Dora Santiago CARD PAINTER Unavailable Christina Goddard CARD PAINTER Unavailable Unavailable Joi Zhang CARD PAINTER Unavailable Unavailable Encounter Details Date Type Department Care Team ([facility] Contact Info) Description 12/24/2022 Abstract [facility] S [address] [place] [address] Stanley Toledo MD [address] [address] (Fax) Social History Tobacco Use Types Packs/Day [...] Upcoming Encounters Date Type Department Care Team ([facility] Contact Info) Description 11/09/2024 2:00 PM EDT Office Visit [facility] CI FM 100 112 [facility] 100 [place] [address] Stanley Toledo MD 112 [facility] 100 [place] [address] (Fax) documented as of this encounter Visit Diagnoses Not on filedocumented in this encounter Care Teams Weaver Needle Loom Relationship Specialty Start Date End Date Stanley Toledo MD 112 [place] [facility] [address] [place] [address] PCP - ACO Reach 10/17/22 Stanley Toledo MD [address] [place] [address] [address] PCP - General Family Medicine 11/20/22 Dora Santiago LPN Licensed Practical Nurse Family Medicine 12/22/2308/26 Christina Goddard LPN Licensed Practical Nurse Family Medicine 12/25/23 Joi Zhang LPN 08/26/24 documented as of this encounter
--- OUTSIDE RECORDS SUMMARY | 2024-10-27 11:26 | XMS_ITS | Encounter Summary ---
Author Organization [facility] Address [address] [place] [address] Care Team Providers Care Winder Helper Name Role Phone Stanley Toledo MD Unavailable [phone] Stanley Toledo MD Primary Care Provider + [phone] Dora Santiago LPN Unavailable Joi Zhang LPN Unavailable Unavailable Encounter Details Date Type Department Care Team (Late st Contact Info) Description 03/31/2024 Clinisync Result Encounter [facility] External Department Unsolicited [...] often do you attend chur ch or yazidi services? Never 12/31/2023 Do you belong to any clubs o r organizations such as rastafarian groups, unions, fraternal or athletic groups, or [...] Recorded Patient Health Questionnaire-2 Score 0 12/31/2023 [facility] - Occupational [...] were you homeless or living in a nursing home (including now)? No 12/31/2023 Sex and Gender [...] Office Visit [facility] CI FM 100 112 [facility] [address] [address] [place] [address] Stanley Toledo MD 112 [facility] [address] [place] [address] documented as of this encounter Procedures Procedure Name Priority Date/Time Associated Diagnosis Comments ITP 03/31/2024 12:39 PM EST documented in this encounter Results * ITP (03/31/2024 12:39 PM EST) Anatomical Region Laterality Modality Other 03/31/2024 12:3 9 PM EST Narrative 03/31/2024 8:55 PM EST The [address] [address] Cardiac Rehab Report Signed Patient: ALEX GRAJEDA MR#: [id number] : 1945 Acct:[id number] Age/Sex: 78 / M ADM Date: 03/31/24 Loc: CR Attending Dr: MAGDY AL Ordering Physician: Arnol Garnica D.O. Date of Service: 03/31/24 Procedure(s): ITP Accession Number(s): [id number] cc: The [facility] Test Date: 2024-03-31 Pat Name: ALEX GRAJEDA Department: Room: - Gender: Male Brand Marketing Intern: : 1945 Requested By: ARNOL GARNICA Order Number: [id number] Silverio MD: ARNOL GARNICA Interpretive Statements Session Date: Electronically Signed On 03-31-2024 20:54:52 EST by ARNOL GARNICA Dictated By: Arnol Garnica D.O. Signed By: 03/31/24205403/31/242054 DD/ 123 TD/TT: Waistline Joiner Lockstitch: Procedure Note Radiology, Radiologist, - 03/31/2024 [place] [address] Cardiac Rehab Report Signed Patient: ALEX GRAJEDA HMR#: [id number] : 1945cct:[id number] Age/Sex: 78 / MADM Date: 03/31/24 Loc: CR Attending Dr: MAGDY AL Ordering Physician: Arnol Garnica D.O. Date of Service: 03/31/24 Procedure(s): ITP Accession Number(s): [id number] cc: [facility] Test Date: 2024-03-31 Pat Name: ALEX GRAJEDA Department: Room: - Gender: Male Brand Marketing Intern: : 1945 Requested By: ARNOL GARNICA Order Number: [id number] Silverio CASILLAS: ARNOL GARNICA Interpretive Statements Session Date: Electronically Signed On 03-31-2024 20:54:52 EST by ARNOL GARNICA Dictated By: Arnol Garnica D.O. Signed By:03/31/24205403/31/242054 DD/ 38 TD/TT: Waistline Joiner Lockstitch: us Generic External Data Provider [facility] Final Result documented in this encounter Visit Diagnoses Not on filedocumented in this encounter Additional Health Concerns Assessment Noted Time PHQ-9 Depression Total Score: 3 05/12/20 23 1:00 PM EST A fall risk assessment has been complete d for the patient 12/31/2023 8:54 AM EDT documented as of this encounter Care Teams Winder Helper Relationship Specialty Start Date End Date Stanley Toledo MD [address] [place] [address] PCP - ACO Reach 10/17/22 Stanley Toledo MD [address] [place] [address] PCP - General Family Medicine 11/20/22 Dora Santiago LPN Licensed Practical Nurse Family Medicine 12/22/2308/26 Joi Zhang LPN 08/26/24 documented as of this encounter
--- OUTSIDE RECORDS SUMMARY | 2024-10-27 11:26 | XMS_ITS | Encounter Summary ---
Author Organization [facility] Address [address] [place] [address] Care Team Providers Care Pie Maker Machine Name Role Phone Stanley Emerson MD Unavailable [phone] Stanley Emerson MD Primary Care Provider + [phone] Dora Santiago BATTERY CONTAINER TESTER ALUMINUM Unavailable Christina Goddard BATTERY CONTAINER TESTER ALUMINUM Unavailable Unavailable Joi Zhang BATTERY CONTAINER TESTER ALUMINUM Unavailable Unavailable Encounter Details Date Type Department Care Team (Late Contact Info) Description 07/31/2023 Clinisync Result Encounter [facility] External Department Unsolicited [...] FM [address] [place] [address] Stanley Emerson MD 112 [facility] [address] [place] [address] documented as of this encounter Procedures Procedure Name Priority Date/Time Associated Diagnosis Comments VASC US LOWER EXTREMITY VENOUS DUPLEX RIGHT 07/31/2023 10:47 AM EST documented in this encounter Results * Vascular US lower extremity venous duplex right (07/31/2023 10:47 AM EST) Anatomical Region Laterality Modality Lower Extremities Ultrasound 07/31/2023 10:4 7 AM EST Narrative 07/31/2023 10:50 [place] [address] Ultrasound Report Signed Patient: ALEX GRAJEDA MR#: [id number] : 1945 Acct:[id number] Age/Sex: 77 / M ADM Date: 07/31/23 Loc: RAD Attending Dr: Shahriar Mosley M.D. Ordering Physician: Shahriar Mosley Date of Service: 07/31/23 Procedure(s): US venous doppler LE RT Accession Number(s): [id number] cc: Shahriar Mosley; STANLEY EMERSON [place] [address] Patient Name: ALEX GRAJEDA MRN: [id number] date: 1945 Sex: M Assigned Patient [facility]: [facility] Current Patient Location: [facility] Accession/Order Number: [id number] Exam Date: 07/31/2023 08:40 Report Date: 07/31/2023 10:47 At the request of: SHAHRIAR MOSLEY Procedure: US venous doppler LE RT EXAMINATION: US venous doppler LE RT HISTORY: Deep Vein Thrombosis , right leg swelling COMPARISON: No relevant comparison available. FINDINGS: REGION: Right lower extremity THROMBI: None. COMPRESSIBILITY: Normal compressibility. FLOW: Normal waveform and antegrade flow between 5 and 20 cm/s. OTHER: Subcutaneous edema. US/US venous doppler LE RT IMPRESSION: 1. No deep vein thrombus within the right lower extremity. Electronically authenticated by: NACHO BLAIR Date: 07/31/2023 10:47 Dictated By: Nacho Blair M.D. Signed By: 07/31/23 1050 DD/ 1047 TD/TT: Stereotype Molder: Procedure Note Radiology, Radiologist, MD - 07/31/2023 [place] [address] Ultrasound Report Signed Patient: ALEX GRAJEDA R#: [id number] : 1945cct:[id number] Age/Sex: 77 / MADM Date: 07/31/23 Loc: RAD Attending Dr: Shahriar Mosley M.D. Ordering Physician: Shahriar Mosley Date of Service: 07/31/23 Procedure(s): US venous doppler LE RT Accession Number(s): [id number] cc: Shahriar Mosley; STANLEY EMERSON [address] [address] Patient Name: ALEX GRAJEDA MRN: [id number] date: 1945 Sex: M Assigned Patient Location: RAD Current Patient Location: RAD Accession/Order Number: [id number] Exam Date: 07/31/2023 08:40 Report Date: 07/31/2023 10:47 At the request of: SHAHRIAR MOSLEY Procedure: US venous doppler LE RT EXAMINATION: US venous doppler LE RT HISTORY: Deep Vein Thrombosis , right leg swelling COMPARISON: No relevant comparison available. FINDINGS: REGION: Right lower extremity THROMBI: None. COMPRESSIBILITY: Normal compressibility. FLOW: Normal waveform and antegrade flow between 5 and 20 cm/s. OTHER: Subcutaneous edema. US/US venous doppler LE RT IMPRESSION: 1. No deep vein thrombus within the right lower extremity. Electronically authenticated by: NACHO BLAIR Date: 07/31/2023 10:47 Dictated By: Nacho Blair M.D. Signed By:07/31/23 1050 DD/ 1047 TD/TT: Stereotype Molder: us Generic External Data Provider IMG US PROCEDURES Final Result documented in this encounter Visit Diagnoses Not on filedocumented in this encounter Additional Health Concerns Assessment Noted Time PHQ-9 Depression Total Score: 3 05/12/20 23 1:00 PM EST documented as of this encounter Care Teams Pie Maker Machine Relationship Specialty Start Date End Date Stanley Emerson MD [address] [place] [address] PCP - ACO Reach 10/17/22 Stanley Emerson MD 112 [facility] [address] [place] [address] PCP - General Family Medicine 11/20/22 Dora Santiago LPN Licensed Practical Nurse Family Medicine 12/22/2308/26 Christina Goddard LPN Licensed Practical Nurse Family Medicine 12/25/23 Joi Zhang LPN 08/26/24 documented as of this encounter
--- OUTSIDE RECORDS SUMMARY | 2024-10-27 11:26 | XMS_ITS | Encounter Summary ---
Author Organization [facility] Address [address] [place] [address] Care Team Providers Care Assistant Professor Of German Name Role Phone Stnaley Toledo MD Unavailable [phone] Stanley Toledo MD Primary Care Provider + [phone] Dora Santiago WASTE WATER WORKER Unavailable Christina Goddard WASTE WATER WORKER Unavailable Unavailable Joi Zahng WASTE WATER WORKER Unavailable Unavailable Encounter Details Date Type Department Care Team (Late Contact Info) Description 01/22/2023 Abstract [facility] FM [address] [place] [address] Teo Stokes MD [address] [facility] [place] [address] Social History Tobacco Use Types Packs/Day Years [...] [facility] CI FM [address] [place] [address] Stanley Toledo MD [address] [place] [address] (Fax) documented as of this encounter Visit Diagnoses Not on filedocumented in this encounter Care Teams Assistant Professor Of German Relationship Specialty Start Date End Date Stanley Toledo MD [address] [place] [address] PCP - ACO Reach 10/17/22 Stanley Toledo MD [address] [place] [address] PCP - General Family Medicine 11/20/22 Dora Santiago LPN Licensed Practical Nurse Family Medicine 12/22/2308/26 Christina Goddard LPN Licensed Practical Nurse Family Medicine 12/25/23 Joi Zhang LPN 08/26/24 documented as of this encounter
--- OUTSIDE RECORDS SUMMARY | 2024-10-27 11:26 | XMS_ITS | Encounter Summary ---
Author Organization [facility] Address [address] [place] [address] Care Team Providers Care Fur Blowing Machine Operator Name Role Phone Stanley Toledo MD Unavailable [phone] Stanley Toledo MD Primary Care Provider + [phone] Dora Santiago LPN Unavailable Joi Zhang LPN Unavailable Unavailable Encounter Details Date Type Department Care Team (Late st Contact Info) Description 03/24/2024 Clinisync Result Encounter [facility] Unsolicited [...] often do you attend chur ch or episcopal services? Never 12/31/2023 Do you belong to any clubs o r organizations such as muslim groups, unions, fraternal or athletic groups, or [...] Recorded Patient Health Questionnaire-2 Score 0 12/31/2023 [facility] - Occupational [...] any time in the past 12 m [facility], were you homeless or living in a skilled nursing (including now)? No 12/31/2023 Sex and Gender [...] [address] [facility] [address] [place] [address] Stanley Toledo MD [address] [facility] [address] [place] [address] documented as of this encounter Procedures Procedure Name Priority Date/Time Associated Diagnosis Comments ITP 03/24/2024 11:46 AM EDT documented in this encounter Results * ITP (03/24/2024 11:46 AM EDT) Anatomical Region Laterality Modality Other 03/24/2024 11:4 6 AM EDT Narrative 03/24/2024 11:29 PM EDT The [address] [address] Cardiac Rehab Report Signed Patient: ALEX GRAJEDA MR#: [id number] : 1945 Acct:[id number] Age/Sex: 78 / M ADM Date: 03/24/24 Loc: CR Attending Dr: MAGDY AL Ordering Physician: Arnol Garnica D.O. Date of Service: 03/24/24 Procedure(s): ITP Accession Number(s): [id number] cc: [facility] Test Date: 2024-03-24 Pat Name: ALEX GRAJEDA Department: Room: - Gender: Male Quality Tester: : 1945 Requested By: ARNOL GARNICA Order Number: [id number] Silverio MD: ARNOL GARNICA Interpretive Statements Session Date: Electronically Signed On 03-24-2024 23:29:20 EDT by ARNOL GARNICA Dictated By: Arnol Garnica D.O. Signed By: 03/24/24232803/24/242328 DD/ 114 TD/TT: Chiropractic Teacher: Procedure Note Radiology, Radiologist, MD - 03/24/2024 [place] [address] Cardiac Rehab Report Signed Patient: ALEX GRAJEDA HMR#: [id number] : 1945cct:[id number] Age/Sex: 78 / MADM Date: 03/24/24 Loc: CR Attending Dr: MAGDY AL Ordering Physician: Arnol Garnica D.O. Date of Service: 03/24/24 Procedure(s): ITP Accession Number(s): [id number] cc: [facility] Test Date: 2024-03-24 Pat Name: ALEX GRAJEDA Department: Room: - Gender: Male Quality Tester: : 1945 Requested By: ARNOL GARNICA Order Number: [id number] Silverio CASILLAS: ARNOL GARNICA Interpretive Statements Session Date: Electronically Signed On 03-24-2024 23:29:20 EDT by ARNOL GARNICA Dictated By: Arnol Garnica D.O. Signed By:03/24/24232803/24/242328 DD/ 114 TD/TT: Chiropractic Teacher: us Generic External Data Provider [facility] Final Result documented in this encounter Visit Diagnoses Not on filedocumented in this encounter Additional Health Concerns Assessment Noted Time PHQ-9 Depression Total Score: 3 05/12/20 23 1:00 PM EST A fall risk assessment has been complete d for the patient 12/31/2023 8:54 AM EDT documented as of this encounter Care Teams Fur Blowing Machine Operator Relationship Specialty Start Date End Date Stanley Toledo MD [address] [place] [address] PCP - ACO Reach 10/17/22 Stanley Toledo MD [address] [place] [address] PCP - General Family Medicine 11/20/22 Dora Santiago LPN Licensed Practical Nurse Family Medicine 12/22/2308/26 Joi Zhang LPN 08/26/24 documented as of this encounter
--- OUTSIDE RECORDS SUMMARY | 2024-10-27 11:26 | XMS_ITS | Clinical Summary ---
Author Organization [facility] Address [address] [place] [address] Care Team Providers Care Client Care Representative Name Role Phone Stanley Toledo MD Unavailable [phone] Stanley Toledo MD Primary Care Provider + [phone] Joi Zhang LPN Unavailable Unavailable Allergies No known active allergies Medications ferrous sulfate 325 (65 Fe) MG tablet Take 325 mg by mouth in the morning. Take with meals. Active albuterol HFA 90 mcg/act inhalerIndicati ons:Simple chronic bronchitis (CMS/HCC) Inhale 2 puffs every 6 (six) hours if needed for wheezing 54 g 1 4 Active FIBER ADULT GUMMIES PO Take 2 tablets by mouth Daily Active Multiple Vitamins-Minera ls (Multivitamin Gummies Mens) chewable tablet Chew 1 tablet Daily Active atorvastatin (Lipitor) 80 MG tablet Take 80 mg by mouth at bedtime 4 Active nitroglycerin (Nitrostat) 0.[address] 0.4 mg under the tongue every 5 (five) minutes if needed for chest pain 4 Active amiodarone (Pacerone) 200 MG tablet Take 200 mg by mouth Daily Active furosemide (Lasix) 40 MG tablet Take 40 mg by mouth in the morning. 4 Active Spacer/Aero-Hol ding Chambers (BreatheRite Dulce Spacer Adult) miscIndications :Simple chronic bronchitis (CMS/HCC) 2 puffs 4 (four) times a day as needed (sob and cough) 1 each 4 Active potassium chloride CR (Klor-Con M20) 20 MEQ ER tablet Take 20 mEq by mouth in the morning. 4 02/18/20 25 Active clopidogrel (Plavix) 75 MG tablet Take 75 mg by mouth Daily Active warfarin (Coumadin) 2 MG tablet Take 2 mg by mouth 1 (one) time each day 5 days a week (Friday, Friday, Friday, Friday and Friday) 4 Active warfarin (Coumadin) 2 MG tablet Take 1 mg by mouth 1 (one) time each day 2 days a week (Friday and ) Active metoprolol succinate XL (Toprol-XL) 25 MG 24 hr tablet Take 25 mg by mouth in the morning. 4 05/21/20 25 Active methIMAzole (Tapazole) 5 MG tablet Take 1 tablet (5 mg) by mouth in the morning and 1 tablet (5 mg) before bedtime. 60 tablet 11 5 07/30/19 26 Active ARIPiprazole (Abilify) 5 MG tablet Take 2.5 mg by mouth at bedtime 5 Active donepezil (Aricept) 10 MG tabletIndicatio ns: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 disturbance, psychotic disturbance, mood disturbance, or anxiety (CMS/HCC) Take 1 tablet (10 mg) by mouth at bedtime 30 tablet 5 5 04/20/20 25 Active cephalexin (Keflex) 250 MG capsule Take 250 mg by mouth 3 (three) times a week On Friday, Friday, Friday 5 Active cephalexin (Keflex) 250 MG capsule Take 250 mg by mouth in the morning. 5 10/07/19 25 Discontinue d(Alternate therapy) ARIPiprazole (Abilify) 2 MG tabletIndicatio ns:Hallucinatio ns Take 0.5 tablets (1 mg) by mouth at bedtime 15 tablet 5 10/20/19 25 Discontinue d(Discontin ued by another clinician) rivastigmine (Exelon) 4.6 MG/24HR Place 1 patch on the skin Daily 5 10/23/19 25 Discontinue d(Therapy completed) QUEtiapine (SEROquel) 25 MG tablet Take 25 mg by mouth at bedtime 5 05/27/20 25 Discontinue d(Ineffecti ve) sulfamethoxazol e-trimethoprim (Bactrim DS) 800-160 MG per tablet Take 1 tablet by mouth Daily 5 10/13/19 25 Active Problems Problem Noted Date Diagnosed Date Delirium due to another medical condition 2024 Lower extremity edema 10/02/2024 Community acquired pneumonia of lower lobe of nash ng 10/02/2024 Anemia due to stage 3b chronic kidney disease (H CC) 05/13/2024 CHF (congestive heart failure) 02/17/2024 Ischemic cardiomyopathy 02/10/2024 Presence of stent in LAD coronary artery 024 Former smoker 01/28/2024 Bilateral hydronephrosis 10/06/2023 Folic acid deficiency 10/06/2023 Vitamin B 12 deficiency 10/06/2023 Stage 3b chronic kidney disease (HCC) 05/12/2023 Hydroureter 12/19/2022 Dementia 12/19/2022 COPD with emphysema 12/19/2022 BPH with urinary obstruction 12/19/2022 Abdominal aortic aneurysm (A AA) greater than 5.5 cm in diameter in male 11/11/2022 Atherosclerosis of right carotid artery 11/12/19 23 Essential hypertension, benign 11/11/2022 Hearing difficulty of both ears 11/11/2022 Microalbuminuria 11/11/2022 Mixed dyslipidemia 11/11/2022 Overweight 11/11/2022 Paroxysmal SVT (supraventricular tachycardia) Simple chronic bronchitis 11/11/2022 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 11/11/2022 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 Venous insufficiency of lower extremity 11/12/19 23 White matter disease 11/11/2022 Transient cerebral ischemic attack 05/16/2022 Polypharmacy 12/08/2020 Hearing loss 11/22/2019 Hypertensive nephropathy 02/22/2016 Resolved Problems Problem Noted Date Diagnosed Date Resolved Date New onset a-fib 02/10/2024 05/04/2024 S/P PTCA (percutaneous trans luminal coronary angioplasty) 02/10/2024 05/13/2024 Metabolic acidosis 10/06/2023 History of bladder cancer 12/19/2022 Obstructive uropathy 11/11/2022 024 Sundowning 11/11/2022 05/04/2024 Acute kidney failure 05/16/2022 023 Hypertensive nephropathy, st age 1-4 or unspecified chronic kidney disease 02/22/201605/12 History of cardiovascular disorder 02/22/2016 12/19/2022 Cigarette smoker 02/23/2015 05/04/2024 Encounters Date Type Department Care Team Description 10/27/2024 Abstract [facility] [address] [facility] [address] [place] [address] Stanley Toledo MD 10/27/2024 Abstract [facility] [address] [place] [address] [place] [address] Stanley Toledo MD 10/27/2024 Abstract [facility] [address] [facility] [address] [place] [address] Stanley Toledo MD 10/26/2024 Abstract [facility] [address] [facility] [address] [place] [address] Stanley Toledo MD 10/20/2024 Patient Outreach [facility] [address] [place] [address] Violeta Jacques RN 10/19/2024 Patient Outreach [facility] [address] [place] [address] Violeta Jacques RN 10/14/2024 2:30 PM EDT Office Visit [facility] [address] [facility] [address] [place] [address] Stanley Toledo MD Pneumonia of left lower lobe due to infectious organism; Encounter for examination following treatment at hospital; Lower extremity edema; Delirium due to another medical condition 10/14/2024 Bamboo flowsheet [facility] [address] [place] [address] [place] [address] Stanley Toledo MD 10/14/2024 Travel 10/13/2024 Orders Only [facility] [address] [place] [address] [place] [address] Stanley Toledo MD Peripheral vascular disease (CMS/HCC) (Primary Dx); Presence of stent in artery 10/12/2024 Abstract [facility] [address] [facility] [address] [place] [address] Stanley Toledo MD 10/06/2024 Patient Outreach [facility] [address] [place] [address] Joi Zhang SEAFOOD MANAGER 10/06/2024 Abstract [facility] [address] [facility] [address] [place] [address] Stanley Toledo MD 10/02/2024 Clinisync Result Encounter [facility] External Department Unsolicited Provider, Generic External Data 10/01/2024 Clinisync Result Encounter [facility] External Department Unsolicited Provider, Generic External Data 09/30/2024 Patient Outreach [facility] [address] [place] [address] ZhangJoi [facility] 09/29/2024 Patient Outreach [facility] [address] [place] [address] [facility] 09/28/2024 Clinisync Result Encounter [facility] External Department Unsolicited Provider, Generic External Data 09/21/2024 2:15 PM EDT Office Visit [facility] [address] [facility] [address] [place] [address] Stanley Toledo MD 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 disturbance, psychotic disturbance, mood disturbance, or anxiety (CMS/HCC); Hallucinations; Need for prophylaxis against urinary tract infection; Indwelling urinary catheter present; Former smoker; Polypharmacy; Overweight 09/21/2024 Abstract [facility] [address] [facility] [address] [place] [address] Stanley Toledo MD 09/21/2024 Abstract [facility] [address] [facility] [address] [place] [address] Stanley Toledo MD 09/21/2024 Bamboo flowsheet [facility] [address] [place] [address] [place] [address] Stanley Toledo MD 09/21/2024 Travel 09/20/2024 Patient Outreach [facility] [address] [place] [address] Joi Zhang LPN 09/02/2024 Clinisync Result Encounter [facility] External Department Unsolicited Provider, Generic External Data 08/26/2024 Patient Outreach [facility] [place] [address] [place] [address] Dora Santiago LPN 08/23/2024 Clinisync Result Encounter [facility] External Department Unsolicited Provider, Generic External Data 08/06/2024 Clinisync Result Encounter [facility] External Department Unsolicited Provider, Generic External Data 08/03/2024 Patient Outreach [facility] [address] [place] [address] Dora Santiago SEAFOOD MANAGER 08/02/2024 Clinisync Result Encounter [facility] External Department Unsolicited Provider, Generic External Data from Last 3 Months Immunizations Immunization Administration Dates Next Due Influenza, High Dose Seasonal, Preservative Free 05/20/2022,02/14/2021 Influenza, High-dose Seasona l, Quadrivalent, Preservative Free 03/06/2022 Influenza, Seasonal, Quadrivalent, Adjuvanted Influenza, injectable, quadrivalent, preservativ e free 02/22/2021,02/22/2020 Influenza, recombinant, quad rivalent, injectable, preservative free 02/22/2020 Influenza, seasonal, injectable 03/19/2024,03/16 Moderna Bivalent Booster Vaccination 03/29/2022 Pfizer Mane Cap SARS-CoV-2 Vaccination 2 Pfizer Purple Cap SARS-CoV-2 Vaccination 024 Pneumococcal Conjugate PCV 20 05/28/2023 Pneumococcal Polysaccharide PPSV23 04/23/2021 RSV, recombinant, protein morris bunit RSVpreF, adjuvant reconstitu, 120mcg/0.5mL, PF (Arexvy) 08/23/2024 SARS-COV-2 (COVID-19) vaccin e, mRNA, spike protein, LNP, PF, valente-sucrose, 30 mcg/0.3 mL 02/16/2023 SARS-CoV-2, Unspecified 10/03/2021 Family History Relation Name Status Comments Brother Alive 1 brother Daughter Alive 1 daughter Father Mother Son Alive 1 son Social History Tobacco Use Types Packs/Day Years Used Date Smoking Tobacco: Former Cigarettes 0.5 60.8 S tarted: 12/31/1963 Smokeless Tobacco: Never Tobacco Cessation:Counseling Given: Yes Alcohol Use Standard Drinks/Week Comments Never 0 [...] often do you attend chur ch or protestant services? Never 12/31/2023 Do you belong to any clubs o r organizations such as restorationism groups, unions, fraternal or athletic groups, or [...] Recorded Patient Health Questionnaire-2 Score 0 05/13/2024 [facility] [place] - Occupational Stress Questionnaire Answer Date Recorded [...] any time in the past 12 m [facility], were you homeless or living in a custodial (including now)? No 12/31/2023 Sex and Gender Information Value Date Recorded Sex Assigned at Not on file Legal Sex Male 7:16 PM EDT Gender Identity Not on file Sexual Orientation Not on file Last Filed Vital Signs Vital Sign Reading Time Taken Comments Blood Pressure 98/68 10/14/2024 3:01 PM EDT Pulse 77 05/13/2024 2:38 PM EST Temperature - - Respiratory Rate - - Oxygen Saturation 97% 05/13/2024 2:38 PM EST Inhaled Oxygen Concentration - - Weight 92.1 kg (203 lb) 09/21/2024 2:08 PM EDT Height 188 cm (6' 2 ) 09/21/2024 2:08 PM EDT Body Mass Index 26.06 09/21/2024 2:08 PM EDT Plan of Treatment Upcoming Encounters Date Type Department Care Team (Late st Contact Info) Description 11/09/2024 2:00 PM EDT Office Visit [facility] [address] [facility] [place] [address] [place] [address] Stanley Toledo MD [address] [facility] [address] [place] [address] Health Maintenance Due Date Last Done Comments Pneumococcal Vaccine: 65+ Years Completed , 04/23/2021 Influenza Vaccine Completed 03/19/2024, , 05/20/2022, Additional history exists Procedures Procedure Name Priority Date/Time Associated Diagnosis Comments MHPT CULT,URINE Routine 10/02/2024 3:43 PM EDT URINE CULTURE - [facility] Routine 10/01/2024 3:40 PM EDT URINE CULTURE - [facility] Routine 09/28/2024 6:08 PM EDT POCT URINALYSIS DIPSTICK Routine 09/21/2024 2:34 PM EDT Hallucinations Indwelling urinary catheter present ALL THYROID STIM HORMONE Routine 09/02/2024 9:34 AM EDT ALL LIPID PROFILE (FASTING) Routine 09/02/2024 9:34 AM EDT ITP 08/23/2024 2:41 PM EDT TRANSTHORACIC ECHO (TTE) LIMITED 08/06/2024 10:43 AM EDT [facility] PTH, INTRAOPERATIVE Routine 08/02/2024 11:59 AM EDT VITAMIN B12 Routine 08/02/2024 11:59 AM EDT ALL FOLIC ACID Routine 08/02/2024 11:59 AM EDT [facility] VITAMIN D 25 [place] Routine 08/02/2024 1 1:59 AM EDT CCF FERRITIN Routine 08/02/2024 11:59 AM EDT METRO IRON AND TIBC Routine 08/02/2024 1 1:59 AM EDT ALL MAGNESIUM Routine 08/02/2024 11:59 AM EDT ALL URIC ACID Routine 08/02/2024 11:59 AM EDT ALL RENAL FUNCTION PANEL Routine 08/02/2024 11:59 AM EDT HMHP CBC WITH PLATELET NO DIFFERENTIAL Routine 08/02/2024 11:59 AM EDT [facility] URINE T PROTEIN CREAT RATIO Routine 08/02/2024 11:50 AM EDT from Last 3 Months Results * (ABNORMAL) MHPT CULT,URINE (10/02/2024 3:43 PM EDT) MHPT CULT,URINE Specimen Description .CLEAN CATCH URINE MHPT MHPT CULT,URINE Special Requests Site: Urine MHPT MHPT CULT,URINE Culture ENTEROBACTER CLOACAE COMPLEX >100,000 CFU/ML(A) MHPT MHPT CULT,URINE Report Status FINAL 10/06/2024 MHPT MHPT CULT,URINE SUSCEPTIBILITY MHPT MHPT CULT,URINE Organism ENCLCX MHPT MHPT CULT,URINE Method RITESH MHPT MHPT CULT,URINE Gentamicin <=1 SUSCEPTIBLE(S) MHPT MHPT CULT,URINE Levofloxacin 1 INTERMEDIATE(I) MHPT MHPT CULT,URINE Nitrofurantoin 64 INTERMEDIATE(I) MHPT MHPT CULT,URINE Piperacillin/Tazob actam 64 INTERMEDIATE(I) MHPT MHPT CULT,URINE Tobramycin <=1 SUSCEPTIBLE(S) MHPT MHPT CULT,URINE Trimethoprim/Sulfa <=20 SUSCEPTIBLE(S) MHPT MHPT CULT,URINE SUSCEPTIBILITY (S) MHPT MHPT CULT,URINE Organism ENCLCX(S) MHPT MHPT CULT,URINE Method ROGERS CARRENO(S) MHPT MHPT CULT,URINE Ceftriaxone SUSCEPTIBLE(S) MHPT 10/02/2024 3:43 PM EDT 10/02/2024 3:46 PM EDT Narrative [facility] - 10/06/2024 3:20 PM EDT Original Ordering Provider: WAQAR HADLEY us Generic External Data Provider [facility] F inal Result [facility] PT * (ABNORMAL) URINE CULTURE - [facility] (10/01/2024 3:40 PM EDT) Only the most recent of2 resultswithin the time period is included. [facility] URINE CULTURE - [facility] Urine Culture - [facility] Testing performed at [facility] URINE CULTURE - [facility] [address] [place] [address] [facility] URINE CULTURE - [facility] O:KLEOXY Isolated [facility] URINE [facility]ULTURE - [facility] Urine Culture - [facility] [place] Count [facility] URINE CULTURE - FR >100,000 CFU/ml [facility] URINE CULTURE - [facility] O:ENTCLC Isolated [facility] URINE CULTURE - [facility] Urine Culture - [facility] [place] Count [facility] URINE CULTURE - [facility] >100,000 CFU/ml [facility] C[facility] URINE CULTURE - [facility] Organism: 1.1 Antibiotic Interpretation RITESH Status [facility] URINE CULTURE - [facility] Amikacin S F(S) [facility] URINE CULTURE - [facility] Amoxicillin/Clavul anate S F(S) [facility] URINE CULTURE - [facility] Aztreonam S F(S) [facility] URINE CULTURE - [facility] Ceftazidime S F(S) [facility] URINE CULTURE - [facility] Ceftazidime/Avibac kwong S F(S) [facility] URINE CULTURE - [facility] Ceftolozane/Tazoba ctam S F(S) [facility] URINE CULTURE - [facility] Ciprofloxacin S F(S) [facility] URINE CULTURE - [facility] Ertapenem S F(S) [facility] URINE CULTURE [facility] Gentamicin S F(S) [facility] URINE CULTURE - [facility] Levofloxacin S F(S) [facility] URINE CULTURE - [facility] Meropenem S F(S) [facility] URINE CULTURE [facility] Meropenem/Vaborbac kwong S F(S) [facility] URINE CULTURE - [facility] Nitrofurantoin S F(S) [facility] URINE CULTURE - [facility] Tetracycline S F(S) [facility] URINE CULTURE [facility] Tigecycline S F(S) [facility] URINE CULTURE - [facility] Tobramycin S F(S) [facility] URINE CULTURE - [facility] Ampicillin/Sulbact am S F(S) [facility] URINE CULTURE - [facility] Cefazolin S F(S) [facility] URINE CULTURE - [facility] Cefepime S F(S) [facility] URINE CULTURE - [facility] Ceftriaxone S F(S) [facility] URINE CULTURE - [facility] Cefuroxime S F(S) [facility] URINE CULTURE - [facility] Piperacillin/Tazob actam S F(S) [facility] URINE CULTURE - [facility] Trimethoprim/Sulfa S F(S) [facility] URINE CULTURE - [facility] Organism: 1.2 Antibiotic Interpretation RITESH Status [facility] URINE CULTURE - [facility] Amikacin S F(S) [facility] URINE CULTURE - [facility] Aztreonam R F(R) [facility] URINE CULTURE - [facility] Ceftazidime R F(R) [facility] URINE CULTURE - [facility] Ciprofloxacin S F(S) [facility] URINE CULTURE - [facility] Ertapenem S F(S) [facility] URINE CULTURE - [facility] Gentamicin S F(S) [facility] URINE CULTURE - [facility] Levofloxacin S F(S) [facility] URINE CULTURE - [facility] Meropenem S F(S) [facility] URINE CULTURE - [facility] Meropenem/Vaborbac kwong S F(S) [facility] URINE CULTURE - [facility] Nitrofurantoin I F(I) [facility] URINE CULTURE - [facility] Tetracycline S F(S) [facility] URINE CULTURE - FR Tigecycline S F(S) [facility] URINE CULTURE - FR Tobramycin S F(S) [facility] URINE CULTURE - [facility] Cefepime S F(S) [facility] URINE CULTURE - [facility] Ceftriaxone R F(R) [facility] URINE CULTURE - [facility] Cefuroxime R F(R) [facility] URINE CULTURE - [facility] Piperacillin/Tazob actam I F(I) [facility] URINE CULTURE - [facility] Trimethoprim/Sulfa S F(S) [facility] 10/01/2024 3:40 PM EDT 10/01/2024 3:57 PM EDT Narrative THOMAS - 10/04/2024 3:49 PM EDT us Generic External Data Provider LAB BLOOD ORDERAB LES Final Result [facility] * (ABNORMAL) POCT urinalysis dipstick manually resulted (09/21/2024 2:34 PM EDT) Color, UA Yellow Clarity, UA Clear Glucose, UA Negative Negative - 2000(110) ++++ mg/dL Bilirubin, UA Negative Negative - 4(70) +++ mg/dL Ketones, UA Positive Negative - 160(16) ++++ mg/dL Spec Grav, UA 1.025 1 - 1.03 Blood, UA Negative Negative - 50 Fletcher/mcL pH, UA 6.0 5 - 9 Protein, UA Positive Negative - 2000(20) ++++ mg/dL Urobilinogen, UA 0.2 0.2 - 12 mg/dL Leukocytes, UA Negative Negative - 500+++ Ed/mcL Nitrite, UA Negative Negative - Positive Urine 09/21/2024 2:34 PM EDT Stanley Toledo MD POINT OF CARE TEST ENTER/IVY T ORDERABLES Final Result * ALL THYROID STIM HORMONE (09/02/2024 9:34 AM EDT) THYROID STIMULATING HORMONE 0.537 0.358 - 3.740 uIU/mL [facility] 09/02/2024 9:34 AM EDT 09/02/2024 9:37 AM EDT Narrative CLIN[facility]NC - 09/02/2024 11:56 AM EDT Generic External Data Provider [facility] F inal Result Performing Organization Address [facility] Co de Phone Number [facility]NC TB * ALL LIPID PROFILE (FASTING) (09/02/2024 9:34 AM EDT) TRIGLYCERIDES 81 <=150 mg/dL TBH CHOLESTEROL 86 <=200 mg/dL TB HDL CHOLESTEROL 43 40 - 60 mg/dL TB Comment: > or =60 mg/dl - LOW CARDIOVASCULAR RISK <40 mg/dl - HIGH CARDIOVASCULAR RISK LDL CHOLESTEROL CALCULATED 26.8 mg/dL TB Comment: <100 mg/dl OPTIMAL 100-129 mg/dl NEAR OR ABOVE OPTIMAL 130-159 mg/dl BORDERLINE HIGH 160-189 mg/dl HIGH >190 mg/dl VERY HIGH VLDL CHOLESTEROL 16.2 mg/dL TB CHOL HDL RATIO 2.0 TB Comment: 3.3 - 4.4 LOW RISK 4.4 - 7.1 AVERAGE RISK 7.1 - 11.0 MODERATE RISK >11.0 HIGH RISK 09/02/2024 9:34 AM EDT 09/02/2024 9:37 AM EDT Narrative CLINISYNC - 09/02/2024 11:56 AM EDT Generic External Data Provider [facility] F inal Result Performing Organization Address [facility] Co de Phone Number [facility] TB * ITP (08/23/2024 2:41 PM EDT) Anatomical Region Laterality Modality Other 08/23/2024 2:41 PM EDT Narrative 09/05/2024 7:59 [place] [address] Cardiac Rehab Report Signed Patient: ALEX ANDERSON MR#: [id number] : 1945 Acct:[id number] Age/Sex: 78 / M ADM Date: 08/23/24 Loc: CR Attending Dr: MAGDY AL Ordering Physician: Arnol Summers D.O. Date of Service: 08/23/24 Procedure(s): ITP Accession Number(s): [id number] cc: [facility] Test Date: 2024-08-23 Pat Name: ALEX ANDERSON Department: Room: - Gender: Male Leaflet Distributor: : 1945 Requested By: ARNOL SUMMERS Order Number: [id number] Reading MD: ARNOL SUMMERS Interpretive Statements Session Date: Electronically Signed On 09-05-2024 19:58:42 EDT by ARNOL SUMMERS Dictated By: Arnol Summers D.O. Signed By: 09/05/24195809/05/241958 DD/ 40 TD/TT: Landing Signal Officer: Procedure Note Radiology, Radiologist, - 09/05/2024 [place] [address] Cardiac Rehab Report Signed Patient: ALEX ANDERSON R#: [id number] : 1945cct:[id number] Age/Sex: 78 / MADM Date: 08/23/24 Loc: CR Attending Dr: MAGDY AL Ordering Physician: Arnol Summers D.O. Date of Service: 08/23/24 Procedure(s): ITP Accession Number(s): [id number] cc: [facility] Test Date: 2024-08-23 Pat Name: ALEX ANDERSON Department: Room: - Gender: Male Leaflet Distributor: : 1945 Requested By: ARNOL SUMMERS Order Number: [id number] Reading MD: ARNOL SUMMERS Interpretive Statements Session Date: Electronically Signed On 09-05-2024 19:58:42 EDT by ARNOL SUMMERS Dictated By: Arnol Summers D.O. Signed By:09/05/24195809/05/241958 DD/ 144 TD/TT: Landing Signal Officer: us Generic External Data Provider [facility] IMAGING Final Result * Transthoracic echo (TTE) limited (08/06/2024 10:43 AM EDT) Anatomical Region Laterality Modality Heart Ultrasound 08/06/2024 10:4 3 AM EDT Narrative 08/11/2024 5:54 PM EDT [address], [address] [place] [address] TRANSTHORACIC ECHOCARDIOGRAM REPORT Patient Name: ALEX ANDERSON Reading Physician: [id number] Mally Torres MD Study Date: 08/06/2024 Ordering Provider: [id number] MAGDY AL MRN/PID: [id number] Fellow: Nurse: Date of /Age: 7 1945 / 78 years Business Employment Specialist: Marlyn Castro RDCS, RT(R), RDMS, RVT Gender Assigned at Additional Staff: : Height: 187.96 cm Admit Date: Weight: 92.53 kg Admission Status: Outpatient BSA / BMI: 2.19 m2 / 26.19 Department Location: [facility] Heart kg/m2 [place] Blood Pressure: 98 /64 mmHg Study Type: TRANSTHORACIC ECHO (TTE) LIMITED Diagnosis/ICD: Atherosclerotic heart disease of [place] coronary artery without angina pectoris-I25.10; ST elevation (STEMI) myocardial infarction of unspecified site-I21.3 Indication: STEMI CPT Codes: Echo Limited-99082 Patient History: Smoker: Former. Pertinent History: A-Fib, [...] 0.6 m/s (0.6-0.9m/s) PV Max P.6 mmHg [id number] Mally Torres MD Electronically signed on 08/11/2024 at 5:54:03 PM Final Procedure Note Radiology, Radiologist, - 08/11/2024 [facility] [address] [facility], [address], [place] [address] TRANSTHORACIC ECHOCARDIOGRAM REPORT Patient Name: ALEX ANDERSON Reading Physician: [id number] Rosales Study Date: 08/06/2024 Ordering Provider: [id number] ALYSSIA AL MRN/PID: [id number] Fellow: Nurse: Date of /Age: 7 1945 / 78 years Business Employment Specialist: Zeke RDCS,RT(R), RDMS, RVT Gender Assigned at M Additional Staff: : Height: 187.96 cm Admit Date: Weight: 92.53 kg Admission Status: Outpatient BSA / BMI: 2.19 m2 / 26.19 [facility] [place] Blood Pressure: 98 /64 mmHg Study Type: TRANSTHORACIC ECHO (TTE) LIMITED Diagnosis/ICD: Atherosclerotic heart disease of [place] coronary arterywithout angina pectoris-I25.10; ST elevation (STEMI) myocardial infarction of unspecified site-I21.3 Indication: STEMI CPT Codes: Echo Limited-96184 Patient History: Smoker: Former. Pertinent History: A-Fib, [...] 0.6 m/s (0.6-0.9m/s) PV Max P.6 mmHg [id number] Mally Torres MD Electronically signed on 08/11/2024 at 5:54:03 PM Final us Generic External Data Provider CV ECHO PROCEDURE S Final Result * VITAMIN B12 (08/02/2024 11:59 AM EDT) VITAMIN B12 399 232 - 1245 pg/mL [facility] Comment: Performed at: [address] [id number] Anodizing Line Operator: Morgan Carpenter PhD, Phone: [phone] 08/02/2024 11:5 9 AM EDT 08/02/2024 12:01 PM EDT Narrative CLINISYNC - 08/03/2024 4:09 AM EDT Generic External Data Provider LAB BLOOD ORDERAB LES Final Result Performing Organization Address City/[facility]/ZIP Co de Phone Number [facility] VITAMIN D 25 [place] (08/02/2024 11:59 AM EDT) VITAMIN D 48.3 ng/mL TBH Comment: <20 ng/mL Vit D deficient 20-<30 ng/mL Vit D insufficient 30-100 ng/mL Vit D sufficient >100 ng/mL Potential Toxicity 08/02/2024 11:5 9 AM EDT 08/02/2024 12:01 PM EDT Narrative CLINISYNC - 08/02/2024 1:08 PM EDT Generic External Data Provider CLINISYNC F inal Result JERAMIEDC TB * (ABNORMAL) [facility] IRON AND TIBC (08/02/2024 11:59 AM EDT) TBH IRON 22.0(L) 65.0 - 175.0 ug/dL TBH TBH TOTAL IRON BINDING CAPACITY 362.0 250.0 - 450.0 ug/dL TBH TBH PERCENT IRON SATURATION 6.1 % TBH 08/02/2024 11:5 9 AM EDT 08/02/2024 12:01 PM EDT Narrative CLINISYNC - 08/02/2024 12:56 PM EDT Generic External Data Provider CLINISYNC F inal Result CLINISYNC TB * HP PTH, INTRAOPERATIVE (08/02/2024 11:59 AM EDT) PTH, INTACT 62 15 - 65 pg/mL TBH Comment: Performed at: [facility] Lab[address] [id number] Anodizing Line Operator: Morgan Carpenter PhD, Phone: [phone] 08/02/2024 11:5 9 AM EDT 08/02/2024 12:01 PM EDT Narrative CLINISYNC - 08/03/2024 9:08 AM EDT Generic External Data Provider CLINISYNC F inal Result Performing Organization Address City/[facility]/ZIP Co de Phone Number CLINISYNC TB * (ABNORMAL) [facility] CBC WITH PLATELET NO DIFFERENTIAL (08/02/2024 11:59 AM EDT) TBH WBC 7.4 4.0 - 11.0 10 3/uL TBH TBH RBC 4.22(L) 4.70 - 6.10 10 6/uL TBH TBH HGB 9.2(L) 14.0 - 18.0 g/dL TBH TBH HCT 32.7(L) 42.0 - 54.0 % TBH TBH MCV 77.5(L) 80.0 - 94.0 fL TBH TBH MCH 21.8(L) 25.9 - 34.0 pg TBH TBH MCHC 28.1(L) 29.9 - 35.2 g/dL TBH TBH RDW 20.3(H) 11.0 - 15.0 % TBH TBH PLT 240 150 - 450 10 3/uL TBH TBH MPV 9.8 9.5 - 13.5 fL TBH 08/02/2024 11:5 9 AM EDT 08/02/2024 12:01 PM EDT Narrative CLINISYNC - 08/02/2024 12:12 PM EDT Generic External Data Provider CLINISYNC F inal Result [facility] * [facility] FERRITIN (08/02/2024 11:59 AM EDT) FERRITIN 35.0 26.0 - 388.0 ng/mL TB 08/02/2024 11:5 9 AM EDT 08/02/2024 12:01 PM EDT Narrative CLINISYNC - 08/02/2024 1:08 PM EDT Generic External Data Provider CLINISYNC F inal Result Performing Organization Address City/[facility]/ZIP Co de Phone Number CLINCARMENNC TB * ALL URIC ACID (08/02/2024 11:59 AM EDT) URIC ACID 5.8 3.5 - 7.2 mg/dL TB 08/02/2024 11:5 9 AM EDT 08/02/2024 12:01 PM EDT Narrative CLINISYNC - 08/02/2024 12:29 PM EDT Generic External Data Provider CLINISYNC F inal Result Performing Organization Address City/[facility]/ZIP Co de Phone Number THOMAS TB * (ABNORMAL) ALL RENAL FUNCTION PANEL (08/02/2024 11:59 AM EDT) SODIUM 144 136 - 145 mmol/L TBH POTASSIUM 4.1 3.5 - 5.1 mmol/L TBH CHLORIDE 107 98 - 107 mmol/L TBH CARBON DIOXIDE 28.3 21.0 - 32.0 mmol/L TBH ANION GAP 12.8 TBH GLUCOSE 106 74 - 106 mg/dL TBH BLOOD UREA NITROGEN 28.0(H) 7.0 - 18.0 mg/dL TBH CREATININE 2.07(H) 0.70 - 1.30 mg/dL TBH TBH EGFR-AF EGYPTIAN 38(L) >=60 mL/min/1.7 3m 2 TBH TBH EGFR-NON AF EGYPTIAN 31(L) >=60 mL/min/1.7 3m 2 TBH BUN CREATININE RATIO 13.5 TBH CALCIUM 8.5 8.5 - 10.1 mg/dL TBH PHOSPHORUS 3.1 2.6 - 4.7 mg/dL TBH ALBUMIN LEVEL 3.2(L) 3.4 - 5.0 g/dL TBH 08/02/2024 11:5 9 AM EDT 08/02/2024 12:01 PM EDT Narrative CLINISYNC - 08/02/2024 12:29 PM EDT Generic External Data Provider CLINISYNC F inal Result Performing Organization Address City/[facility]/ZIP Co de Phone Number CLINISYNC TB * ALL MAGNESIUM (08/02/2024 11:59 AM EDT) MAGNESIUM 2.1 1.8 - 2.4 mg/dL TBH 08/02/2024 11:5 9 AM EDT 08/02/2024 12:01 PM EDT Narrative CLINISYNC - 08/02/2024 12:29 PM EDT Generic External Data Provider CLINISYNC F inal Result Performing Organization Address [facility] de Phone Number CLINISYNC TB * ALL FOLIC ACID (08/02/2024 11:59 AM EDT) FOLATE 19.30 8.60 - 58.90 ng/mL TBH 08/02/2024 11:5 9 AM EDT 08/02/2024 12:01 PM EDT Narrative CLINISYNC - 08/02/2024 1:08 PM EDT Generic External Data Provider CLINISYNC F inal Result Performing Organization Address [facility] Co de Phone Number CLINISYNC TB * (ABNORMAL) TBH URINE T PROTEIN CREAT RATIO (08/02/2024 11:50 AM EDT) TOTAL PROTEIN URINE RANDOM 19.4(H) <=11.9 mg/dL TBH CREATININE URINE RANDOM 29.50 20.00 - 300.00 mg/dL TBH PROTEIN CREATININE RATIO URINE 0.66 TBH 08/02/2024 11:5 0 AM EDT 08/02/2024 12:01 PM EDT Narrative CLINISYNC - 08/02/2024 12:29 PM EDT us Generic External Data Provider CLINISYNC F inal Result Performing Organization Address City/State/[facility] Co de Phone Number [facility] from Last 3 Months Insurance MEDICARE [facility] Care Teams Client Care Representative Relationship Specialty Start Date End Date Stanley Toledo MD [address] [place] [address] PCP - ACO Reach 10/17/22 Stanley Toledo MD [address] [place] [address] PCP - General Family Medicine 11/20/22 Joi Zhang LPN 08/26/24
--- OUTSIDE RECORDS SUMMARY | 2024-10-27 11:26 | XMS_ITS | Encounter Summary ---
Author Organization [facility] Address [address] [place] [address] Care Team Providers Care Professor Of Environmental Science Name Role Phone Stanley Toledo MD Unavailable [phone] Stanley Toledo MD Primary Care Provider + [phone] Dora Santiago CHEMICAL EQUIPMENT SALES ENGINEER Unavailable Christina Goddard CHEMICAL EQUIPMENT SALES ENGINEER Unavailable Unavailable Joi Zhang CHEMICAL EQUIPMENT SALES ENGINEER Unavailable Unavailable Encounter Details Date Type Department Care Team (Late Contact Info) Description 04/14/2023 Abstract [facility] [address] [place] [address] Robe Pryor MD [address], [place] [id number] Social History Tobacco Use Types Packs/Day Years [...] Office Visit [facility] 100 112 [facility] 100 [place] [address] Stanley Toledo MD 112 [facility] 100 [place] [address] (Fax) documented as of this encounter Visit Diagnoses Not on filedocumented in this encounter Care Teams Professor Of Environmental Science Relationship Specialty Start Date End Date Stanley Toledo MD [address] [place] [address] PCP - ACO Reach 10/17/22 Stanley Toledo MD [address] [place] [address] PCP - General Family Medicine 11/20/22 Dora Santiago LPN Licensed Practical Nurse Family Medicine 12/22/2308/26 Christina Goddard LPN Licensed Practical Nurse Family Medicine 12/25/23 Joi Zhang LPN 08/26/24 documented as of this encounter
--- OUTSIDE RECORDS SUMMARY | 2024-10-27 11:26 | XMS_ITS | Encounter Summary ---
Author Organization [facility] Address [address] [place] [address] Care Team Providers Care Continuum Of Care Manager Name Role Phone Stanley Toledo MD Unavailable [phone] Stanley Toledo MD Primary Care Provider + [phone] Dora Santiago GRAILS WEB APPLICATION DEVELOPER Unavailable Christina Goddard GRAILS WEB APPLICATION DEVELOPER Unavailable Unavailable Joi Zhang GRAILS WEB APPLICATION DEVELOPER Unavailable Unavailable Encounter Details Date Type Department Care Team (Late Contact Info) Description 07/02/2023 Abstract [facility] [place] [address] [place] [address] Stanley Toledo MD [address] [address] Social History Tobacco Use Types Packs/Day Years [...] Office Visit [facility] [address] [facility] 100 [place] [address] Stanley Toledo MD 112 [facility] 100 [place] [address] (Fax) documented as of this encounter Visit Diagnoses Not on filedocumented in this encounter Additional Health Concerns Assessment Noted Time PHQ-9 Depression Total Score: 3 05/12/20 23 1:00 PM EST documented as of this encounter Care Teams Continuum Of Care Manager Relationship Specialty Start Date End Date Stanley Toledo MD [address] [place] [address] PCP - ACO Reach 10/17/22 Stanley Toledo MD 112 [facility] 100 [place] [address] PCP - General Family Medicine 11/20/22 Dora Santiago LPN Licensed Practical Nurse Family Medicine 12/22/2308/26 Christina Goddard LPN Licensed Practical Nurse Family Medicine 12/25/23 Joi Zhang LPN 08/26/24 documented as of this encounter
--- OUTSIDE RECORDS SUMMARY | 2024-10-27 11:27 | XMS_ITS | Encounter Summary ---
Author Organization [facility] Address [address] [place] [address] Care Team Providers Care Lunchroom Monitor Name Role Phone Stanley Toledo MD Unavailable [phone] Stanley Toledo MD Primary Care Provider + [phone] Joi Zhang LPN Unavailable Unavailable Encounter Details Date Type Department Care Team (Late st Contact Info) Description 10/14/2024 Bamboo flowsheet [facility] [address] [place] [address] Stanley Toledo MD [address] [place] [address] Social History Tobacco Use Types Packs/Day Years [...] often do you attend chur ch or islam services? Never 12/31/2023 Do you belong to any clubs o r organizations such as religious groups, unions, fraternal or athletic groups, or [...] Recorded Patient Health Questionnaire-2 Score 0 05/13/2024 [facility] of Occupat ional Health - Occupational Stress [...] any time in the past 12 m [facility], were you homeless or living in a retirement (including now)? No 12/31/2023 Sex and Gender [...] FM [address] [place] [address] Stanley Toledo MD [address] [place] [address] documented as of this encounter Visit Diagnoses Not on filedocumented in this encounter Additional Health Concerns Assessment Noted Time PHQ-9 Depression Total Score: 3 05/13/20 24 2:00 PM EST A fall risk assessment has been complete d for the patient 12/31/2023 8:54 AM EDT documented as of this encounter Care Teams Lunchroom Monitor Relationship Specialty Start Date End Date Stanley Toledo MD [address] [place] [address] PCP - ACO Reach 10/17/22 Stanley Toledo MD [address] [address] PCP - General Family Medicine 11/20/22 Joi Zhang LPN 08/26/24 documented as of this encounter
--- OUTSIDE RECORDS SUMMARY | 2024-10-27 11:27 | XMS_ITS | Encounter Summary ---
Author Organization [facility] Address [address] [place] [address] Care Team Providers Care Radiopharmacist Name Role Phone Stanley Toledo MD Unavailable [phone] Stanley Toledo MD Primary Care Provider + [phone] Joi Zhang LPN Unavailable Unavailable Encounter Details Date Type Department Care Team (Late st Contact Info) Description 10/26/2024 Abstract [facility] [address] [place] [address] Stanley Toledo MD [address] [place] [address] Social History Tobacco Use Types Packs/Day Years [...] How often do you attend chur or nondenominational services? Never 12/31/2023 Do you belong to any clubs o r organizations such as yarsani groups, unions, fraternal or athletic groups, or [...] Recorded Patient Health Questionnaire-2 Score 0 05/13/2024 [facility] of Occupat ionak Health - Occupational Stress Questionnaire Answer Date [...] any time in the past 12 m [facility], were you homeless or living in a group home (including now)? No 12/31/2023 Sex and [...] FM [address] [place] [address] Stanley Toledo MD [address] [place] [address] documented as of this encounter Visit Diagnoses Not on filedocumented in this encounter Additional Health Concerns Assessment Noted Time PHQ-9 Depression Total Score: 3 05/13/20 24 2:00 PM EST A fall risk assessment has been complete d for the patient 12/31/2023 8:54 AM EDT documented as of this encounter Care Teams Radiopharmacist Relationship Specialty Start Date End Date Stanley Toledo MD [address] [place] [address] PCP - ACO Reach 10/17/22 Stanley Toledo MD [address] [address] PCP - General Family Medicine 11/20/22 Joi Zhang LPN 08/26/24 documented as of this encounter
--- OUTSIDE RECORDS SUMMARY | 2024-10-27 11:27 | XMS_ITS | Encounter Summary ---
Author Organization [facility] Address [address] [place] [address] Phone Care Team Providers Care Milk House Worker Name Role Phone Stanley Toledo MD Primary Care Provider Ruby Vickers MD Unavailable Encounter Details Date Type Department Care Team (Late st Contact Info) Description 02/11/2024 Scanned Document [facility] [address] [place] [address] Scanning, Generic Provider Social History [...] suspected to have Coronavirus/COVID-19? No / Unsure 02/10/2024 9:03 AM EDT documented as of this encounter Plan of Treatment Upcoming Encounters Date Type Department Care Team (Late st Contact Info) Description 03/29/2025 11:00 AM EST Office Visit [facility] [address] [facility] [address] [place] [address] Teo Stokes MD [address] [facility] [address] [place] [address] documented as of this encounter Procedures Procedure Name Priority Date/Time Associated Diagnosis Comments OUTSIDE LAB SCAN 02/11/2024 documented in this encounter Results * OUTSIDE LAB SCAN (02/11/2024) Narrative 02/11/2024 Ordered by an unspecified provider. us Generic Provider Scanning OUTSIDE SCAN Final Result documented in this encounter Visit Diagnoses Not on filedocumented in this encounter Additional Health Concerns Assessment Noted Time A fall risk assessment has been complete d for the patient 02/10/2024 9:14 AM EDT documented as of this encounter Care Teams Milk House Worker Relationship Specialty Start Date End Date Stanley Toledo MD [address] [place] [address] PCP - General 05/17/22 Ruby Vickers MD [address] [facility] Medical Office Bldg, [address] [place] [address] Director Of Database Marketing Electrophysiology 10/04/24 documented as of this encounter
--- OUTSIDE RECORDS SUMMARY | 2024-10-27 11:27 | XMS_ITS | Encounter Summary ---
Author Organization [facility] Address [address] [place] [address] Care Team Providers Care Copper Etcher Name Role Phone Stanley Toledo MD Unavailable [phone] Stanley Toledo MD Primary Care Provider + [phone] Joi Zhang LPN Unavailable Unavailable Encounter Details Date Type Department Care Team (Late st Contact Info) Description 10/12/2024 Abstract [facility] [address] [place] [address] Stanley Toledo MD [address] [place] [address] Social History Tobacco Use Types Packs/Day Years [...] How often do you attend chur or sabianism services? Never 12/31/2023 Do you belong to any clubs o r organizations such as zoroastrian groups, unions, fraternal or athletic groups, or [...] Recorded Patient Health Questionnaire-2 Score 0 05/13/2024 [facility] of Occupat ionhi Health - Occupational Stress Questionnaire Answer Date [...] any time in the past 12 m [facility], were you homeless or living in a long term (including now)? No 12/31/2023 Sex and Gender [...] FM [address] [place] [address] Stanley Toledo MD [address] [place] [address] documented as of this encounter Visit Diagnoses Not on filedocumented in this encounter Additional Health Concerns Assessment Noted Time PHQ-9 Depression Total Score: 3 05/13/20 24 2:00 PM EST A fall risk assessment has been complete d for the patient 12/31/2023 8:54 AM EDT documented as of this encounter Care Teams Copper Etcher Relationship Specialty Start Date End Date Stanley Toledo MD [address] [place] [address] PCP - ACO Reach 10/17/22 Stanley Toledo MD [address] [address] PCP - General Family Medicine 11/20/22 Joi Zhang LPN 08/26/24 documented as of this encounter
--- OUTSIDE RECORDS SUMMARY | 2024-10-27 11:27 | XMS_ITS | Encounter Summary ---
Author Organization [facility] Address [address] [place] [address] Phone Care Team Providers Care Workday Director Name Role Phone Stanley Toledo MD Primary Care Provider Ruby Vickers MD Unavailable Encounter Details Date Type Department Care Team (Late st Contact Info) Description 04/20/2024 Scanned Document [facility] [address] [place] [address] Scanning, Generic Provider Social History Tobacco Use [...] Description 03/29/2025 11:00 AM EST Office Visit [facility] 703 [facility] 250 [place] [address] Teo Stokes MD 703 [facility] 2, [address] [place] [address] documented as of this encounter Procedures Procedure Name Priority Date/Time Associated Diagnosis Comments OUTSIDE LAB SCAN 04/20/2024 documented in this encounter Results * OUTSIDE LAB SCAN (04/20/2024) Narrative 04/20/2024 Ordered by an unspecified provider. us Generic Provider Scanning OUTSIDE SCAN Final Result documented in this encounter Visit Diagnoses Not on filedocumented in this encounter Additional Health Concerns Assessment Noted Time A fall risk assessment has been complete d for the patient 02/10/2024 9:14 AM EDT documented as of this encounter Care Teams Workday Director Relationship Specialty Start Date End Date Stanley Toledo MD [address] [place] [address] PCP - General 05/17/22 Ruby Vickers MD [address] [facility] Medical Office Bldg, [address] [place] [address] Automotive Parts Person Electrophysiology 10/04/24 documented as of this encounter
--- OUTSIDE RECORDS SUMMARY | 2024-10-27 11:27 | XMS_ITS | Encounter Summary ---
Author Organization [facility] Address [address] [place] [address] Phone Care Team Providers Care Shipwright Supervisor Name Role Phone Stanley Toledo MD Primary Care Provider Ruby Vickers MD Unavailable Encounter Details Date Type Department Care Team (Late st Contact Info) Description 04/14/[address]24 [address] [facility] [address] [place] [phone] Scanning, Generic Provider Social History Tobacco Use [...] Description 03/29/2025 11:00 AM EST Office Visit [facility] 703 [facility] 250 [place] [address] Teo Stokes MD 703 [facility] 2, [address] [place] [address] documented as of this encounter Procedures Procedure Name Priority Date/Time Associated Diagnosis Comments OUTSIDE LAB SCAN 04/14/2024 documented in this encounter Results * OUTSIDE LAB SCAN (04/14/2024) Narrative 04/14/2024 Ordered by an unspecified provider. us Generic Provider Scanning OUTSIDE SCAN Final Result documented in this encounter Visit Diagnoses Not on filedocumented in this encounter Additional Health Concerns Assessment Noted Time A fall risk assessment has been complete d for the patient 02/10/2024 9:14 AM EDT documented as of this encounter Care Teams Shipwright Supervisor Relationship Specialty Start Date End Date Stanley Toledo MD [address] [place] [address] PCP - General 05/17/22 Ruby Vickers MD [address] [facility] Medical Office Bldg, [address] [place] [address] Assigner Electrophysiology 10/04/24 documented as of this encounter
--- OUTSIDE RECORDS SUMMARY | 2024-10-27 11:27 | XMS_ITS | Encounter Summary ---
Author Organization [facility] Address [address] [place] [address] Phone Care Team Providers Care Filter Pulp Washer Name Role Phone Stanley Toledo MD Primary Care Provider Rbuy Vickers MD Unavailable Encounter Details Date Type Department Care Team (Late st Contact Info) Description 03/24/2024 Scanned Document [facility] [address] [place] [address] Scanning, Generic Provider Social History Tobacco Use [...] suspected to have Coronavirus/COVID-19? No / Unsure 02/24/2024 2:43 PM EDT documented as of this encounter Plan of Treatment Upcoming Encounters Date Type Department Care Team (Late st Contact Info) Description 03/29/2025 11:00 AM EST Office Visit [facility] [address]03 [facility] [address] [place] [address] Teo Stokes MD 703 [facility] 2, [address] [place] [address] documented as of this encounter Procedures Procedure Name Priority Date/Time Associated Diagnosis Comments OUTSIDE LAB SCAN 03/24/2024 documented in this encounter Results * OUTSIDE LAB SCAN (03/24/2024) Narrative 03/24/2024 Ordered by an unspecified provider. us Generic Provider Scanning OUTSIDE SCAN Final Result documented in this encounter Visit Diagnoses Not on filedocumented in this encounter Additional Health Concerns Assessment Noted Time A fall risk assessment has been complete d for the patient 02/10/2024 9:14 AM EDT documented as of this encounter Care Teams Filter Pulp Washer Relationship Specialty Start Date End Date Stanley Toledo MD [address] [place] [address] PCP - General 05/17/22 Ruby Vickers MD [address] [facility] Medical Office Bldg, [address] [place] [address] Testboard Operator Electrophysiology 10/04/24 documented as of this encounter
--- OUTSIDE RECORDS SUMMARY | 2024-10-27 11:27 | XMS_ITS | Encounter Summary ---
Author Organization [facility] Address [address] [place] [address] Care Team Providers Care Liquor Clerk Name Role Phone Stanley Toledo MD Unavailable [phone] Stanley Toledo MD Primary Care Provider + [phone] Dora Santiago DIRECTOR OF BROADCAST Unavailable Christina Goddard DIRECTOR OF BROADCAST Unavailable Unavailable Joi Zhang DIRECTOR OF BROADCAST Unavailable Unavailable Encounter Details Date Type Department Care Team (Late Contact Info) Description 10/22/2023 Abstract [facility] [address] [place] [address] Stanley Toledo MD [address] [address] Social History Tobacco Use Types Packs/Day Years [...] FM 100 112 [facility] 100 [place] [address] Stanley Toledo MD 112 [facility] 100 [place] [address] (Fax) documented as of this encounter Visit Diagnoses Not on filedocumented in this encounter Additional Health Concerns Assessment Noted Time PHQ-9 Depression Total Score: 3 05/12/20 23 1:00 PM EST documented as of this encounter Care Teams Liquor Clerk Relationship Specialty Start Date End Date Stanley Toledo MD [address] [place] [address] PCP - ACO Reach 10/17/22 Stanley Toledo MD [address] [facility] 100 [place] [address] PCP - General Family Medicine 11/20/22 Dora Santiago LPN Licensed Practical Nurse Family Medicine 12/22/2308/26 Christina Goddard LPN Licensed Practical Nurse Family Medicine 12/25/23 Joi Zhang LPN 08/26/24 documented as of this encounter
--- OUTSIDE RECORDS SUMMARY | 2024-10-27 11:27 | XMS_ITS | Encounter Summary ---
Author Organization [facility] Address [address] [place] [address] Phone Care Team Providers Care Fourth Hand Name Role Phone Stanley Toledo MD Primary Care Provider Ruby Vickers MD Unavailable Encounter Details Date Type Department Care Team (Late st Contact Info) Description 01/16/2024 Scanned Document [facility] [address] [place] [phone] Scanning, Generic Provider Social History Tobacco Use Types Packs/Day Years Used Date Smoking Tobacco: Every Day Cigarettes Alcohol Use Standard Drinks/Week Comments Never 0 [...] EST Office Visit [facility] [address] [address] Teo Stokes MD [address] [facility] 2, [address] [place] [address] documented as of this encounter Procedures Procedure Name Priority Date/Time Associated Diagnosis Comments ECHOCARDIOGRAM 01/16/2024 documented in this encounter Results * Echocardiogram (01/16/2024) Narrative 01/16/2024 Ordered by an unspecified provider. us Generic Provider Scanning CV ECHO PROCEDURES Fin al Result documented in this encounter Visit Diagnoses Not on filedocumented in this encounter Care Teams Fourth Hand Relationship Specialty Start Date End Date Stanley Toledo MD [address] [place] [address] PCP - General 05/17/22 Ruby Vickers MD [address] [facility] Medical Office Bldg, [address] [place] [address] Log Grader Electrophysiology 10/04/24 documented as of this encounter
--- OUTSIDE RECORDS SUMMARY | 2024-10-27 11:27 | XMS_ITS | Encounter Summary ---
Author Organization [facility] Address [address] [place] [address] Phone Care Team Providers Care Oyster Shipper Name Role Phone Stanley Toledo MD Primary Care Provider [phone] Ruby Vickers MD Unavailable Encounter Details Date Type Department Care Team (Late st Contact Info) Description 08/02/2024 Scanned Document [facility] [address] [place] [phone] Scanning, Generic Provider Social History Tobacco Use [...] suspected to have Coronavirus/COVID-19? No / Unsure 07/29/2024 10:41 AM EST documented as of this encounter Plan of Treatment Upcoming Encounters Date Type Department Care Team (Late st Contact Info) Description 03/29/2025 11:00 AM EST Office Visit [facility] 703 [facility] 250 [place] [address] Teo Stokes MD 703 [facility] 2, [address] [place] [address] documented as of this encounter Visit Diagnoses Not on filedocumented in this encounter Additional Health Concerns Assessment Noted Time A fall risk assessment has been complete d for the patient 02/10/2024 9:14 AM EDT documented as of this encounter Care Teams Oyster Shipper Relationship Specialty Start Date End Date Stanley Toledo MD [address] [place] [address] PCP - General 05/17/22 Ruby Vickers MD [address] [facility] Medical Office Bldg, [address] [place] [address] Hand Buffer Electrophysiology 10/04/24 documented as of this encounter
--- OUTSIDE RECORDS SUMMARY | 2024-10-27 11:27 | XMS_ITS | Encounter Summary ---
Author Organization [facility] Address [address] [place] [address] Phone Care Team Providers Care Home Care Specialist Name Role Phone Stanley Toledo MD Primary Care Provider Ruby Vickers MD Unavailable Encounter Details Date Type Department Care Team (Late st Contact Info) Description 01/17/2024 Scanned Document [facility] [address] [place] [phone] Scanning, Generic Provider Social History Tobacco Use [...] [facility] [address] [address] Teo Stokes MD 703 [facility] 2, [address] [place] [address] documented as of this encounter Procedures Procedure Name Priority Date/Time Associated Diagnosis Comments OUTSIDE IMAGING SCAN 01/17/2024 documented in this encounter Results * OUTSIDE IMAGING SCAN (01/17/2024) Anatomical Region Laterality Modality Other Narrative 01/17/2024 Ordered by an unspecified provider. us Generic Provider Scanning OUTSIDE SCAN Final Result documented in this encounter Visit Diagnoses Not on filedocumented in this encounter Care Teams Home Care Specialist Relationship Specialty Start Date End Date Stanley Toledo MD [address] [place] [address] PCP - General 05/17/22 Ruby Vickers MD [address] [facility] Medical Office Bldg, [address] [place] [address] Aircraft Instrument Repairer Electrophysiology 10/04/24 documented as of this encounter
--- OUTSIDE RECORDS SUMMARY | 2024-10-27 11:27 | XMS_ITS | Encounter Summary ---
Author Organization [facility] Address [address] [facility] [place] [address] Care Team Providers Care Attendance Clerk Name Role Phone Stanley Toledo MD Unavailable [phone] Stanley Toledo MD Primary Care Provider + [phone] Joi Zhang LPN Unavailable Unavailable Encounter Details Date Type Department Care Team (Late st Contact Info) Description 10/19/2024 Patient Outreach [facility] [address] [place] [phone] Violeta Jacques, ROCIO Social History Tobacco Use Types Packs/Day [...] often do you attend chur ch or mormon services? Never 12/31/2023 Do you belong to any clubs o r organizations such as episcopalian groups, unions, fraternal or athletic groups, or [...] Recorded Patient Health Questionnaire-2 Score 0 05/13/2024 [facility] Questionnaire Answer Date Recorded [...] any time in the past 12 m [place], were you homeless or living in a senior living (including now)? No 12/31/2023 Sex and Gender Information Value Date Recorded Sex Assigned at Not on file Legal Sex Male 7:16 PM EDT Gender Identity Not on file Sexual Orientation Not on file documented as of this encounter Progress Notes * Violeta Jacques, RN - 10/19/2024 9:40 AM EDT Chart reviewed. Spoke with pt's on phone. She states pt's BP is good but his dementia is getting worse. Reports Dr Mcarthur changed medications for pt and added abilify, dc seroquel. Epic updated. states pt is not as sedated and Abilify seems to working well. Pt has a follow up appt with Mat October 25. She states they talked with pt and family over the weekend regarding procedure for defibrillator and pt does not want procedure and family is not in favor as well. They are not sure how pt will handle recovering and don't want to have him go through the procedure. going to call and cancel procedure at this time. Pt's asks if she can start to give pt the keflex 250mg 3x/wkto help prevent UTI. States Dr Samuels had pt on this prior to hospital stay. Encourage Estella to call Dr Clifford's office for further instructions on Keflex. Remind of appt with Dr Toledo 11/09. Advise her to call with needs/concerns. documented in this encounter Plan of Treatment Upcoming Encounters Date Type Department Care Team (Late st Contact Info) Description 11/09/2024 2:00 PM EDT Office Visit [facility] [address] [place] [address] Stanley Toledo MD 112 [place] [facility] 100 [place] [address] documented as of this encounter Visit Diagnoses Diagnosis 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 disturbance, psychotic disturbance, mood disturbance, or anxiety (CMS/HCC)- Primary Mixed dyslipidemia (CMS/HCC) documented in this encounter Additional Health Concerns Assessment Noted Time PHQ-9 Depression Total Score: 3 05/13/20 24 2:00 PM EST A fall risk assessment has been complete d for the patient 12/31/2023 8:54 AM EDT documented as of this encounter Care Teams Attendance Clerk Relationship Specialty Start Date End Date Stanley Toledo MD 112 [facility] 100 [place] [address] PCP - ACO Reach 10/17/22 Stanley Toledo MD 112 [facility] 100 [place] [address] PCP - General Family Medicine 11/20/22 Joi Zhang LPN 08/26/24 documented as of this encounter
--- OUTSIDE RECORDS SUMMARY | 2024-10-27 11:27 | XMS_ITS | Encounter Summary ---
Author Organization [facility] Address [address] [place] [address] Phone Care Team Providers Care Dairy Cattle Farm Manager Name Role Phone Stanley Toledo MD Primary Care Provider Ruby Vickers MD Unavailable Encounter Details Date Type Department Care Team (Late st Contact Info) Description 03/23/2024 Scanned Document [facility] [address] [place] [phone] Scanning, Generic Provider Social History Tobacco Use [...] Description 03/29/2025 11:00 AM EST Office Visit [facility] 703 [facility] [address] [place] [address] Teo Stokes MD 703 [facility] 2, [address] [place] [address] documented as of this encounter Procedures Procedure Name Priority Date/Time Associated Diagnosis Comments OUTSIDE LAB SCAN 03/23/2024 documented in this encounter Results * OUTSIDE LAB SCAN (03/23/2024) Narrative 03/23/2024 Ordered by an unspecified provider. us Generic Provider Scanning OUTSIDE SCAN Final Result documented in this encounter Visit Diagnoses Not on filedocumented in this encounter Additional Health Concerns Assessment Noted Time A fall risk assessment has been complete d for the patient 02/10/2024 9:14 AM EDT documented as of this encounter Care Teams Dairy Cattle Farm Manager Relationship Specialty Start Date End Date Stanley Toledo MD [address] [place] [address] PCP - General 05/17/22 Ruby Vickers MD [address] [facility] Medical Office Bldg, [address] [place] [address] Education Program Specialist Electrophysiology 10/04/24 documented as of this encounter
--- OUTSIDE RECORDS SUMMARY | 2024-10-27 11:27 | XMS_ITS | Encounter Summary ---
Author Organization [facility] Address [address] [place] [address] Care Team Providers Care Body Builder Name Role Phone Stanley Toledo MD Unavailable [phone] Stanley Toledo MD Primary Care Provider + [phone] Joi Zhang LPN Unavailable Unavailable Encounter Details Date Type Department Care Team (Late st Contact Info) Description 10/06/2024 Abstract [facility] [address] [place] [address] Stanley Toledo MD [address] [place] [address] Social History Tobacco Use Types Packs/Day Years [...] How often do you attend chur or yarsani services? Never 12/31/2023 Do you belong to any clubs o r organizations such as baptism groups, unions, fraternal or athletic groups, or [...] Recorded Patient Health Questionnaire-2 Score 0 05/13/2024 [facility] - Occupational Stress Questionnaire Answer Date [...] any time in the past [address] [facility], were you homeless or [...] FM [address] [place] [address] Stanley Toledo MD [address] [place] [address] documented as of this encounter Visit Diagnoses Not on filedocumented in this encounter Additional Health Concerns Assessment Noted Time PHQ-9 Depression Total Score: 3 05/13/20 24 2:00 PM EST A fall risk assessment has been complete d for the patient 12/31/2023 8:54 AM EDT documented as of this encounter Care Teams Body Builder Relationship Specialty Start Date End Date Stanley Toledo MD [address] [place] [address] PCP - ACO Reach 10/17/22 Stanley Toledo MD [address] [address] PCP - General Family Medicine 11/20/22 Joi Zhang LPN 08/26/24 documented as of this encounter
--- OUTSIDE RECORDS SUMMARY | 2024-10-27 11:27 | XMS_ITS | Encounter Summary ---
Author Organization [facility] Address [address] [place] [address] Care Team Providers Care Civil Preparedness Officer Name Role Phone Stanley Toledo MD Unavailable [phone] Stanley Toledo MD Primary Care Provider + [phone] Joi Zhang LPN Unavailable Unavailable Encounter Details Date Type Department Care Team (Late st Contact Info) Description 09/21/2024 Abstract [facility] [address] [place] [address] Stanley Toledo MD [address] [place] [address] Social History Tobacco Use Types Packs/Day Years [...] How often do you attend chur or hindu services? Never 12/31/2023 Do you [...] Recorded Patient Health Questionnaire-2 Score 0 05/13/2024 [facility] - Occupational Stress Questionnaire Answer Date [...] any time in the past 12 m [facility], were you homeless or living in a [facility] (including now)? No 12/31/2023 Sex and Gender [...] FM [address] [place] [address] Stanley Toledo MD [address] [place] [address] documented as of this encounter Visit Diagnoses Not on filedocumented in this encounter Additional Health Concerns Assessment Noted Time PHQ-9 Depression Total Score: 3 05/13/20 24 2:00 PM EST A fall risk assessment has been complete d for the patient 12/31/2023 8:54 AM EDT documented as of this encounter Care Teams Civil Preparedness Officer Relationship Specialty Start Date End Date Stanley Toledo MD [address] [place] [address] PCP - ACO Reach 10/17/22 Stanley Toledo MD [address] [address] PCP - General Family Medicine 11/20/22 Joi Zhang LPN 08/26/24 documented as of this encounter
--- OUTSIDE RECORDS SUMMARY | 2024-10-27 11:27 | XMS_ITS | Encounter Summary ---
Author Organization [facility] Address [address] [place] [address] Phone Care Team Providers Care Contracting Engineer Name Role Phone Stanley Toledo MD Primary Care Provider Ruby Vickers MD Unavailable Encounter Details Date Type Department Care Team (Late st Contact Info) Description 07/21/2024 Scanned Document [facility] [address] [place] [phone] Scanning, Generic Provider Social History Tobacco Use [...] EST Office Visit [facility] 703 [facility] 250 [place] [address] Teo Stokes MD 703 [facility] 2, [address] [place] [address] documented as of this encounter Procedures Procedure Name Priority Date/Time Associated Diagnosis Comments OUTSIDE LAB SCAN 07/21/2024 documented in this encounter Results * OUTSIDE LAB SCAN (07/21/2024) Narrative 07/21/2024 Ordered by an unspecified provider. us Generic Provider Scanning OUTSIDE SCAN Final Result documented in this encounter Visit Diagnoses Not on filedocumented in this encounter Additional Health Concerns Assessment Noted Time A fall risk assessment has been complete d for the patient 02/10/2024 9:14 AM EDT documented as of this encounter Care Teams Contracting Engineer Relationship Specialty Start Date End Date Stanley Toledo MD [address] [place] [address] PCP - General 05/17/22 Ruby Vickers MD [address] [facility] Medical Office Bldg, [address] [place] [address] Nut Blanker Operator Electrophysiology 10/04/24 documented as of this encounter
--- OUTSIDE RECORDS SUMMARY | 2024-10-27 11:27 | XMS_ITS | Encounter Summary ---
Author Organization [facility] Address [address] [place] [address] Care Team Providers Care Heat Plant Specialist Name Role Phone Stanley Toledo MD Unavailable [phone] Stanley Toledo MD Primary Care Provider + [phone] Joi Zhang LPN Unavailable Unavailable Encounter Details Date Type Department Care Team (Late st Contact Info) Description 10/27/2024 Abstract [facility] [address] [place] [address] Stanley Toledo MD [address] [place] [address] Social History Tobacco Use Types Packs/Day Years [...] How often do you attend chur or roman catholic services? Never 12/31/2023 Do you belong to any clubs o r organizations such as congregation groups, unions, fraternal or athletic groups, or [...] Recorded Patient Health Questionnaire-2 Score 0 05/13/2024 [facility] - Occupational Stress Questionnaire Answer Date [...] time in the past 12 m [facility], were you homeless or living in a halfway (including now)? No 12/31/2023 Sex and Gender [...] FM [address] [place] [address] Stanley Toledo MD [address] [place] [address] documented as of this encounter Visit Diagnoses Not on filedocumented in this encounter Additional Health Concerns Assessment Noted Time PHQ-9 Depression Total Score: 3 05/13/20 24 2:00 PM EST A fall risk assessment has been complete d for the patient 12/31/2023 8:54 AM EDT documented as of this encounter Care Teams Heat Plant Specialist Relationship Specialty Start Date End Date Stanley Toledo MD [address] [place] [address] PCP - ACO Reach 10/17/22 Stanley Toledo MD [address] [address] PCP - General Family Medicine 11/20/22 Joi Zhang LPN 08/26/24 documented as of this encounter
--- OUTSIDE RECORDS SUMMARY | 2024-10-27 11:27 | XMS_ITS | Encounter Summary ---
Author Organization [facility] Address [address] [place] [address] Phone Care Team Providers Care Terra Cotta Mold Maker Name Role Phone Stanley Toledo MD Primary Care Provider [phone] Ruby Vickers MD Unavailable Encounter Details Date Type Department Care Team (Late st Contact Info) Description 2023 Scanned Document [facility] [address] [place] [address] Scanning, Generic Provider Social History Tobacco Use [...] Description 03/29/2025 11:00 AM EST Office Visit [facility] [address] [address] Teo Stokes MD [address] [facility] 2, [address] [place] [address] documented as of this encounter Procedures Procedure Name Priority Date/Time Associated Diagnosis Comments OUTSIDE LAB SCAN 2023 documented in this encounter Results * OUTSIDE LAB SCAN (2023) Narrative 2023 Ordered by an unspecified provider. us Generic Provider Scanning OUTSIDE SCAN Final Result documented in this encounter Visit Diagnoses Not on filedocumented in this encounter Care Teams Terra Cotta Mold Maker Relationship Specialty Start Date End Date Stanley Toledo MD [address] [place] [address] PCP - General 05/17/22 Ruby Vickers MD [address] [facility] Medical Office Bldg, [address] [place] [address] Coat Checker Electrophysiology 10/04/24 documented as of this encounter
--- OUTSIDE RECORDS SUMMARY | 2024-10-27 11:27 | XMS_ITS | Encounter Summary ---
Author Organization [facility] Address [address] [place] [address] Phone Care Team Providers Care Anatomic Pathology Manager Name Role Phone Stanley Toledo MD Primary Care Provider Ruby Vickers MD Unavailable Encounter Details Date Type Department Care Team (Late st Contact Info) Description 01/18/2024 Scanned Document [facility] [address] [place] [address] Scanning, Generic Provider Social History Tobacco Use [...] Description 03/29/2025 11:00 AM EST Office Visit [facility] 703 [facility] 250 [place] [address] Teo Stokes MD 703 [facility] 2, [address] [place] [address] documented as of this encounter Visit Diagnoses Not on filedocumented in this encounter Care Teams Anatomic Pathology Manager Relationship Specialty Start Date End Date Stanley Toledo MD [address] [place] [address] PCP - General 05/17/22 Ruby Vickers MD [address] [facility] [address] [place] [address] Fisher Oyster Electrophysiology 10/04/24 documented as of this encounter
--- OUTSIDE RECORDS SUMMARY | 2024-10-27 11:27 | XMS_ITS | Encounter Summary ---
Author Organization [facility] Address [address] [place] [address] Care Team Providers Care Senior Manufacturing Supervisor Name Role Phone Stanley Toledo MD Unavailable [phone] Stanley Toledo MD Primary Care Provider + [phone] Joi Zhang LPN Unavailable Unavailable Encounter Details Date Type Department Care Team (Late st Contact Info) Description 09/21/2024 Abstract [facility] [address] [place] [address] Stanley Toledo MD [address] [place] [address] Social History Tobacco Use Types Packs/Day Years [...] How often do you attend chur or christianity services? Never 12/31/2023 Do you belong to any clubs o r organizations such as taoism groups, unions, fraternal or athletic groups, or [...] Recorded Patient Health Questionnaire-2 Score 0 05/13/2024 [facility] Occup[facility] ion[facility] Health - Occupational Stress Questionnaire Answer Date [...] any time in the past 12 m [facility], were you homeless or living [...] FM [address] [place] [address] Stanley Toledo MD [address] [place] [address] documented as of this encounter Visit Diagnoses Not on filedocumented in this encounter Additional Health Concerns Assessment Noted Time PHQ-9 Depression Total Score: 3 05/13/20 24 2:00 PM EST A fall risk assessment has been complete d for the patient 12/31/2023 8:54 AM EDT documented as of this encounter Care Teams Senior Manufacturing Supervisor Relationship Specialty Start Date End Date Stanley Toledo MD [address] [place] [address] PCP - ACO Reach 10/17/22 Stanley Toledo MD [address] [address] PCP - General Family Medicine 11/20/22 Joi Zhang LPN 08/26/24 documented as of this encounter
--- OUTSIDE RECORDS SUMMARY | 2024-10-27 11:27 | XMS_ITS | Encounter Summary ---
Author Organization [facility] Address [address] [place] [address] Phone Care Team Providers Care Pelletizer Name Role Phone Stanley Toledo MD Primary Care Provider Ruby Vickers MD Unavailable Encounter Details Date Type Department Care Team (Late st Contact Info) Description 07/28/[address] [facility] [address] [place] [address] Scanning, Generic Provider Social History [...] Description 03/29/2025 11:00 AM EST Office Visit [facility] [address] [facility] 250 [place] [address] Teo Stokes MD 703 [facility] 2, [address] [place] [address] documented as of this encounter Procedures Procedure Name Priority Date/Time Associated Diagnosis Comments OUTSIDE LAB SCAN 07/28/2024 documented in this encounter Results * OUTSIDE LAB SCAN (07/28/2024) Narrative 07/28/2024 Ordered by an unspecified provider. us Generic Provider Scanning OUTSIDE SCAN Final Result documented in this encounter Visit Diagnoses Not on filedocumented in this encounter Additional Health Concerns Assessment Noted Time A fall risk assessment has been complete d for the patient 02/10/2024 9:14 AM EDT documented as of this encounter Care Teams Pelletizer Relationship Specialty Start Date End Date Stanley Toledo MD [address] [place] [address] PCP - General 05/17/22 Ruby Vickers MD 125 [address] [facility] Medical Office Bldg, [address] [place] [address] Rubber Mold Maker Electrophysiology 10/04/24 documented as of this encounter
--- OUTSIDE RECORDS SUMMARY | 2024-10-27 11:27 | XMS_ITS | Encounter Summary ---
Author Organization [facility] Address [address] [place] [address] Care Team Providers Care Rn Psychiatric Name Role Phone Stanley Toledo MD Unavailable [phone] Stanley Toledo MD Primary Care Provider + [phone] Dora Santiago CORNICE MAKER Unavailable Christina Goddard CORNICE MAKER Unavailable Unavailable Joi Zhang CORNICE MAKER Unavailable Unavailable Encounter Details Date Type Department Care Team (Late Contact Info) Description 09/30/2023 Orders Only [facility] [address] [place] [address] Vicki, [place], [place] Social History Tobacco Use Types Packs/Day Years [...] Office Visit [facility] 112 [facility] 100 [place] [address] Stanley Toledo MD 112 [facility] 100 [place] [address] documented as of this encounter Visit Diagnoses Not on filedocumented in this encounter Additional Health Concerns Assessment Noted Time PHQ-9 Depression Total Score: 3 05/12/20 23 1:00 PM EST documented as of this encounter Care Teams Rn Psychiatric Relationship Specialty Start Date End Date Stanley Toledo MD [address] [place] [address] PCP - ACO Reach 10/17/22 Stanely Toledo MD [address] [place] [address] PCP - General Family Medicine 11/20/22 Dora Santiago LPN Licensed Practical Nurse Family Medicine 12/22/2308/26 Christina Goddard LPN Licensed Practical Nurse Family Medicine 12/25/23 Joi Zhang LPN 08/26/24 documented as of this encounter
--- OUTSIDE RECORDS SUMMARY | 2024-10-27 11:27 | XMS_ITS | Encounter Summary ---
Author Organization [facility] Address [address] [place] [address] Care Team Providers Care Processing Clerk Name Role Phone Stanley Toledo MD Unavailable [phone] Stanley Toledo MD Primary Care Provider + [phone] Joi Zhang LPN Unavailable Unavailable Encounter Details Date Type Department Care Team (Latest Contact Info) Description 10/14/2024 Travel Social History Tobacco Use Types Packs/Day Years [...] often do you attend chur ch or holiness services? Never 12/31/2023 Do you belong to any clubs o r organizations such as gnosticism groups, unions, fraternal or athletic groups, or [...] Recorded Patient Health Questionnaire-2 Score 0 05/13/2024 [facility] - Occupational Stress Questionnaire Answer Date Recorded [...] any time in the past 12 m [facility], were you homeless or living in a [place] [facility] [place] facility (including now)? No 12/31/2023 Sex and Gender [...] FM [address] [place] [address] Stanley Toledo MD [address] [place] [address] (Fax) documented as of this encounter Visit Diagnoses Not on filedocumented in this encounter Additional Health Concerns Assessment Noted Time PHQ-9 Depression Total Score: 3 05/13/20 24 2:00 PM EST A fall risk assessment has been complete d for the patient 12/31/2023 8:54 AM EDT documented as of this encounter Care Teams Processing Clerk Relationship Specialty Start Date End Date Stanley Toledo MD [address] [place] [address] (Fax) PCP - ACO Reach 10/17/22 Stanley Toledo MD [address] [place] [address] (Fax) PCP - General Family Medicine 11/20/22 Joi Zhang LPN 08/26/24 documented as of this encounter
--- OUTSIDE RECORDS SUMMARY | 2024-10-27 11:27 | XMS_ITS | Encounter Summary ---
Author Organization [facility] Address [address] [place] [address] Phone Care Team Providers Care Cell Pourer Name Role Phone Stanley Toledo MD Primary Care Provider Ruby Vickers MD Unavailable Encounter Details Date Type Department Care Team (Late st Contact Info) Description 01/19/2024 Scanned Document [facility] [address] [place] [phone] Scanning, Generic Provider Social History Tobacco Use [...] EST Office Visit [facility] [address] [facility] 250 [place] [address] Teo Stokes MD 703 [facility] 2, [address] [place] [address] documented as of this encounter Visit Diagnoses Not on filedocumented in this encounter Care Teams Cell Pourer Relationship Specialty Start Date End Date Stanley Toledo MD [address] [place] [phone] PCP - General 05/17/22 Ruby Vickers MD 125 [address] [facility], [facility] 305 [place] [address] Pottery Striper Electrophysiology 10/04/24 documented as of this encounter
--- OUTSIDE RECORDS SUMMARY | 2024-10-27 11:27 | XMS_ITS | Encounter Summary ---
Author Organization [facility] Address [address] [place] [address] Phone Care Team Providers Care Oil And Gas Exploration Technician Name Role Phone Stanley Toledo MD Primary Care Provider Ruby Vickers MD Unavailable Encounter Details Date Type Department Care Team (Late st Contact Info) Description 08/10/2024 Scanned Document [facility] [address] [place] [address] Scanning, Generic Provider Social History [...] Office Visit [facility] 703 [facility] 250 [place] [address] Teo Stokes MD 703 [facility] 2, [address] [place] [address] documented as of this encounter Procedures Procedure Name Priority Date/Time Associated Diagnosis Comments OUTSIDE LAB SCAN 08/10/2024 documented in this encounter Results * OUTSIDE LAB SCAN (08/10/2024) Narrative 08/10/2024 Ordered by an unspecified provider. us Generic Provider Scanning OUTSIDE SCAN Final Result documented in this encounter Visit Diagnoses Not on filedocumented in this encounter Additional Health Concerns Assessment Noted Time A fall risk assessment has been complete d for the patient 02/10/2024 9:14 AM EDT documented as of this encounter Care Teams Oil And Gas Exploration Technician Relationship Specialty Start Date End Date Stanley Toledo MD [address] [place] [address] PCP - General 05/17/22 Ruby Vickers MD 125 [address] [facility] Medical Office Bldg, [address] [place] [address] Ap Processor Electrophysiology 10/04/24 documented as of this encounter
--- OUTSIDE RECORDS SUMMARY | 2024-10-27 11:27 | XMS_ITS | Encounter Summary ---
Author Organization [facility] Address [address] [place] [address] Phone Care Team Providers Care Associate Professor Of Violin Name Role Phone Stanley Toledo MD Primary Care Provider Ruby Vickers MD Unavailable Encounter Details Date Type Department Care Team (Late st Contact Info) Description 04/05/2024 Scanned Document [facility] [address] [place] [phone] Scanning, Generic Provider Social History Tobacco Use [...] Description 03/29/2025 11:00 AM EST Office Visit [facility] 703 [facility] 250 [place] [address] Teo Stokes MD 703 [facility] 2, [address] [place] [address] documented as of this encounter Procedures Procedure Name Priority Date/Time Associated Diagnosis Comments OUTSIDE LAB SCAN 04/05/2024 documented in this encounter Results * OUTSIDE LAB SCAN (04/05/2024) Narrative 04/05/2024 Ordered by an unspecified provider. us Generic Provider Scanning OUTSIDE SCAN Final Result documented in this encounter Visit Diagnoses Not on filedocumented in this encounter Additional Health Concerns Assessment Noted Time A fall risk assessment has been complete d for the patient 02/10/2024 9:14 AM EDT documented as of this encounter Care Teams Associate Professor Of Violin Relationship Specialty Start Date End Date Stanley Toledo MD [address] [place] [address] PCP - General 05/17/22 Ruby Vickers MD 125 [address] [facility] Medical Office Bldg, [address] [place] [address] Segmental Wall Installer Electrophysiology 10/04/24 documented as of this encounter
--- OUTSIDE RECORDS SUMMARY | 2024-10-27 11:27 | XMS_ITS | Encounter Summary ---
Author Organization [facility] Address [address] [place] [address] Care Team Providers Care Water Treatment Technician Name Role Phone Stanley Toledo MD Unavailable [phone] Stanley Toledo MD Primary Care Provider + [phone] Dora Santiago LINK TRAINER MAINTENANCE MAN Unavailable Christina Goddard LINK TRAINER MAINTENANCE MAN Unavailable Unavailable Joi Zhang LINK TRAINER MAINTENANCE MAN Unavailable Unavailable Encounter Details Date Type Department Care Team (Late Contact Info) Description 10/22/2023 Abstract [facility] [address] [place] [address] Stanley Toledo MD [address] [address] Social History Tobacco Use Types Packs/Day Years [...] Visit [facility] [address] [facility] 100 [place] [address] Stanley Toledo MD 112 [facility] 100 [place] [address] (Fax) documented as of this encounter Visit Diagnoses Not on filedocumented in this encounter Additional Health Concerns Assessment Noted Time PHQ-9 Depression Total Score: 3 05/12/20 23 1:00 PM EST documented as of this encounter Care Teams Water Treatment Technician Relationship Specialty Start Date End Date Stanley Toledo MD [address] [place] [address] PCP - ACO Reach 10/17/22 Stanley Toledo MD [address] [facility] 100 [place] [address] PCP - General Family Medicine 11/20/22 Dora Santiago LPN Licensed Practical Nurse Family Medicine 12/22/2308/26 Christina Goddard LPN Licensed Practical Nurse Family Medicine 12/25/23 Joi Zhang LPN 08/26/24 documented as of this encounter
--- OUTSIDE RECORDS SUMMARY | 2024-10-27 11:27 | XMS_ITS | Encounter Summary ---
Author Organization [facility] Address [address] [place] [address] Phone Care Team Providers Care Sewing Machine Mechanic Name Role Phone Stanley Toledo MD Primary Care Provider Ruby Vickers MD Unavailable Encounter Details Date Type Department Care Team (Late st Contact Info) Description 01/23/2024 Scanned Document [facility] [address] [place] [address] Scanning, Generic Provider Social History Tobacco Use [...] Description 03/29/2025 11:00 AM EST Office Visit [facility] 703 [facility] 250 [place] [address] Teo Stokes MD 703 [facility] 2, [address] [place] [address] documented as of this encounter Visit Diagnoses Not on filedocumented in this encounter Care Teams Sewing Machine Mechanic Relationship Specialty Start Date End Date Stanley Toledo MD [address] [place] [address] PCP - General 05/17/22 Ruby Vickers MD 125 [address] [facility], [facility] 305 [place] [address] Teacher Emotionally Impaired Electrophysiology 10/04/24 documented as of this encounter
--- OUTSIDE RECORDS SUMMARY | 2024-10-27 11:27 | XMS_ITS | Encounter Summary ---
Author Organization [facility] Address [address] [place] [address] Care Team Providers Care Physicist Solid State Name Role Phone Stanley Toledo MD Unavailable [phone] Stanley Toledo MD Primary Care Provider + [phone] Dora Santiago SALES SUPERINTENDENT Unavailable Christina Goddard SALES SUPERINTENDENT Unavailable Unavailable Joi Zhang SALES SUPERINTENDENT Unavailable Unavailable Encounter Details Date Type Department Care Team (Late Contact Info) Description 09/09/2023 Abstract [facility] [address] [place] [address] Stanley Toledo MD [address] [address] Social History Tobacco Use Types Packs/Day Years [...] Office Visit [facility] 100 112 [facility] 100 [place] [address] Stanley Toledo MD 112 [facility] 100 [place] [address] (Fax) documented as of this encounter Visit Diagnoses Not on filedocumented in this encounter Additional Health Concerns Assessment Noted Time PHQ-9 Depression Total Score: 3 05/12/20 23 1:00 PM EST documented as of this encounter Care Teams Physicist Solid State Relationship Specialty Start Date End Date Stanley Toledo MD [address] [place] [address] PCP - ACO Reach 10/17/22 Stanley Toledo MD [address] [facility] 100 [place] [address] PCP - General Family Medicine 11/20/22 Dora Santiago LPN Licensed Practical Nurse Family Medicine 12/22/2308/26 Christina Goddard LPN Licensed Practical Nurse Family Medicine 12/25/23 Joi Zhang LPN 08/26/24 documented as of this encounter
--- OUTSIDE RECORDS SUMMARY | 2024-10-27 11:27 | XMS_ITS | Encounter Summary ---
Author Organization [facility] Address [address] [place] [address] Care Team Providers Care Control Officer Name Role Phone Stanley Toledo MD Unavailable [phone] Stanley Toledo MD Primary Care Provider + [phone] Joi Zhang LPN Unavailable Unavailable Encounter Details Date Type Department Care Team (Late st Contact Info) Description 10/27/2024 Abstract [facility] [address] [place] [address] Stanley Toledo MD [address] [place] [address] Social History Tobacco Use Types Packs/Day Years [...] How often do you attend chur or jew services? Never 12/31/2023 Do you belong to any clubs o r organizations such as rastafari groups, unions, fraternal or athletic groups, or [...] Score 0 05/13/2024 [facility] - Occupational Stress Questionnaire Answer Date [...] any time in the past 12 m [facility], were you homeless or living in a [...] FM [address] [place] [address] Stanley Toledo MD [address] [place] [address] documented as of this encounter Visit Diagnoses Not on filedocumented in this encounter Additional Health Concerns Assessment Noted Time PHQ-9 Depression Total Score: 3 05/13/20 24 2:00 PM EST A fall risk assessment has been complete d for the patient 12/31/2023 8:54 AM EDT documented as of this encounter Care Teams Control Officer Relationship Specialty Start Date End Date Stanley Toledo MD [address] [place] [address] PCP - ACO Reach 10/17/22 Stanley Toledo MD [address] [address] PCP - General Family Medicine 11/20/22 Joi Zhang LPN 08/26/24 documented as of this encounter
--- OUTSIDE RECORDS SUMMARY | 2024-10-27 11:27 | XMS_ITS | Encounter Summary ---
Author Organization [facility] Address [address] [place] [address] Phone Care Team Providers Care Pilot Plant Operator Helper Name Role Phone Stanley Toledo MD Primary Care Provider Ruby Vickers MD Unavailable Encounter Details Date Type Department Care Team (Late st Contact Info) Description 04/01/2024 Scanned Document [facility] [address] [place] [phone] Scanning, Generic Provider Social History Tobacco Use [...] Description 03/29/2025 11:00 AM EST Office Visit [facility] 703 [facility] 250 [place] [address] Toe Stokes MD 703 [facility] 2, [address] [place] [address] documented as of this encounter Visit Diagnoses Not on filedocumented in this encounter Additional Health Concerns Assessment Noted Time A fall risk assessment has been complete d for the patient 02/10/2024 9:14 AM EDT documented as of this encounter Care Teams Pilot Plant Operator Helper Relationship Specialty Start Date End Date Stanley Toledo MD [address] [place] [address] PCP - General 05/17/22 Ruby Vickers MD 125 [address] [facility] Bldg, [address] [place] [address] Inner Diameter Grinder Tool Electrophysiology 10/04/24 documented as of this encounter
--- OUTSIDE RECORDS SUMMARY | 2024-10-27 11:27 | XMS_ITS | Encounter Summary ---
Author Organization [facility] Address [address] [facility] [place] [address] Care Team Providers Care Dress Marker Name Role Phone Stanley Emerson MD Unavailable [phone] Stanley Emerson MD Primary Care Provider + [phone] Joi Zhang LPN Unavailable Unavailable Encounter Details Date Type Department Care Team (Late st Contact Info) Description 10/20/2024 Patient Outreach [facility] [address] [place] [phone] Mar Jacques, ROCIO Social History Tobacco Use Types [...] often do you attend chur ch or judaism services? Never 12/31/2023 Do you belong to any clubs o r organizations such as taoist groups, unions, fraternal or athletic groups, or [...] Recorded Patient Health Questionnaire-2 Score 0 05/13/2024 [facility] Questionnaire Answer Date [...] any time in the past 12 m [facility], were you homeless or living in a [facility] (including now)? No 12/31/2023 Sex and Gender Information Value Date Recorded Sex Assigned at Not on file Legal Sex Male 7:16 PM EDT Gender Identity Not on file Sexual Orientation Not on file documented as of this encounter Progress Notes * Mar Jacques RN - 10/20/2024 9:56 AM EDT Pt's called stating pt will run out of his Exelon patches about 4 days prior to appt November 09. is asking for refill unless you feel patient would do better with a different medication? Thankyou * Mar Jacques RN - 10/20/2024 9:56 AM EDT Images from the original note were not included. Stanley Emerson MD to Me (Selected Message) 10/20/24 12:37 PM I am fine helping with these type of medications, I did think his psychiatrist was managing this. During his last office visit however the patch was we are barely attached to his skin and he was not getting medication. We can Consider a change from the Exelon( Rivastigmine) patch over to the oralmedication Aricept( donepezil). They both work about the same. Touch base with his and see if she would prefer the pill form or the patches. <October 20, 2024, 14:27 - Mar Jacques RN> Spoke with pt on phone. States states they would prefer to try pill, Aricept, as when looking at cost, aricept is a little cheaper. [employer] has coupon for aricept and will send to pt's for pt once medication sent to pharmacy. Thank you. * Mar Jacques RN - 10/20/2024 9:56 AM EDT Images from the original note were not included. Stanley Emerson MD to Me (Selected Message) 10/22/24 7:23 AM I canceled the Exelon prescription. I sent in Aricept 10 mg nightly. Not on the prescription, but I would like her to cut the 1st 3 pills in half and just give a half nightly for a total of 6 days. This will ease him into the Aricept and minimize any GI side effects, and allow any Exelon left in his system to get out. <October 22, 2024, 10:22 - Mar Jacques RN> Phone call to Pt's , Estella. Update her on instructions from Dr Emerson as directed in above message. Estella also states pt's cook ship called and wants pt to do weekly IV iron infustions x5 wksbut pt is not thrilled to do this. Pt to decide over the weekend. Pt will continue to see urology for catheter change and have a scope done as well. He was also instructed to re-start the keflex 250mg 3x/wk to help prevent UTI's. Med list updated. Coupon from [employer] sent to pt's to help with cost of Aricept if needed. Dr Emerson- GULSHAN. Thank you documented in this encounter Miscellaneous Notes * Addendum Note - Stanley Emerson MD - 10/20/2024 9:56 AM EDTAddended by: STANLEY EMERSON on: 10/22/2024 07:25 AM Modules accepted: Orders * Addendum Note - Mar Jacques RN - 10/20/2024 9:56 AM EDTAddended by: MAR JACQUES on: 10/22/2024 10:28 AM Modules accepted: Orders documented in this encounter Plan of Treatment Upcoming Encounters Date Type Department Care Team (Late st Contact Info) Description 11/09/2024 2:00 PM EDT Office Visit [facility] [address] [place] [address] Stanley Emerson MD [address] [place] [address] documented as of this encounter Visit Diagnoses [...] documented as of this encounter Care Teams Dress Marker Relationship Specialty Start Date End Date Stanley Emerson MD [address] [place] [address] (Fax) PCP - ACO Reach 10/17/22 Stanley Emerson MD [address] [place] [address] PCP - General Family Medicine 11/20/22 Joi Zhang LPN 08/26/24 documented as of this encounter
--- OUTSIDE RECORDS SUMMARY | 2024-10-27 11:27 | XMS_ITS | Encounter Summary ---
Author Organization [facility] Address [address] [place] [address] Phone Care Team Providers Care Duplicate Maker Name Role Phone Stanley Toledo MD Primary Care Provider Ruby Vickers MD Unavailable Encounter Details Date Type Department Care Team (Late st Contact Info) Description 03/04/2024 Scanned Document [facility] [address] [place] [address] Scanning, Generic Provider Social History Tobacco Use [...] 11:00 AM EST Office Visit [facility] 703 [facility] [address] [place] [address] Teo Stokes MD 703 [facility] 2, [address] [place] [address] documented as of this encounter Procedures Procedure Name Priority Date/Time Associated Diagnosis Comments OUTSIDE LAB SCAN 03/04/2024 documented in this encounter Results * OUTSIDE LAB SCAN (03/04/2024) Narrative 03/04/2024 Ordered by an unspecified provider. us Generic Provider Scanning OUTSIDE SCAN Final Result documented in this encounter Visit Diagnoses Not on filedocumented in this encounter Additional Health Concerns Assessment Noted Time A fall risk assessment has been complete d for the patient 02/10/2024 9:14 AM EDT documented as of this encounter Care Teams Duplicate Maker Relationship Specialty Start Date End Date Stanley Toledo MD [address] [place] [address] PCP - General 05/17/22 Ruby Vickers MD 125 E [facility] Medical Office Bldg, [address] [place] [address] Alum Plant Operator Electrophysiology 10/04/24 documented as of this encounter
--- OUTSIDE RECORDS SUMMARY | 2024-10-27 11:27 | XMS_ITS | Encounter Summary ---
Author Organization [facility] Address [address] [place] [address] Phone Care Team Providers Care Tempering Kiln Tender Name Role Phone Stanley Toledo MD Primary Care Provider [phone] Ruby Vickers MD Unavailable Encounter Details Date Type Department Care Team (Late st Contact Info) Description 05/12/2024 Scanned Document [facility] [address] [place] [phone] Scanning, Generic Provider Social History Tobacco Use [...] Description 03/29/2025 11:00 AM EST Office Visit [facility] 703 [facility] 250 [place] [address] Teo Stokes MD 703 [facility] 2, [address] [place] [address] documented as of this encounter Procedures Procedure Name Priority Date/Time Associated Diagnosis Comments OUTSIDE LAB SCAN 05/12/2024 documented in this encounter Results * OUTSIDE LAB SCAN (05/12/2024) Narrative 05/12/2024 Ordered by an unspecified provider. us Generic Provider Scanning OUTSIDE SCAN Final Result documented in this encounter Visit Diagnoses Not on filedocumented in this encounter Additional Health Concerns Assessment Noted Time A fall risk assessment has been complete d for the patient 02/10/2024 9:14 AM EDT documented as of this encounter Care Teams Tempering Kiln Tender Relationship Specialty Start Date End Date Stanley Toledo MD [address] [place] [address] PCP - General 05/17/22 Ruby Vickers MD 125 [address] [facility] Medical Office Bldg, [address] [place] [address] Seamless Hosiery Knitter Electrophysiology 10/04/24 documented as of this encounter
--- OUTSIDE RECORDS SUMMARY | 2024-10-27 11:27 | XMS_ITS | Encounter Summary ---
Author Organization [facility] Address [address] [place] [address] Phone Care Team Providers Care Patient Assistant Name Role Phone Stanley Toledo MD Primary Care Provider [phone] Ruby Vickers MD Unavailable Encounter Details Date Type Department Care Team (Late st Contact Info) Description 05/22/2022 Orders Only [facility] [address] [place] [address] Conversion, Onbase Social History Tobacco Use Types Packs/Day Years [...] 03/29/2025 11:00 AM EST Office Visit [facility] 703 [facility] [address] [place] [address] Teo Stokes MD 7[address] [facility] 2, [address] [place], [place] [id number] Scheduled Orders Name Type Priority Associated Diagnoses Orde r Schedule OUTSIDE LAB SCAN Lab Ordered: 05/22/2022 documented as of this encounter Visit Diagnoses Not on filedocumented in this encounter Care Teams Patient Assistant Relationship Specialty Start Date End Date Stanley Toledo MD [address] [place] [address] PCP - General 05/17/22 Ruby Vickers MD [address] [facility] [address] [place] [id number] Occup Therapist Electrophysiology 10/04/24 documented as of this encounter
--- OUTSIDE RECORDS SUMMARY | 2024-10-27 11:27 | XMS_ITS | Encounter Summary ---
Author Organization [facility] Address [address] [place] [address] Phone Care Team Providers Care Air Conditioning Mechanic Name Role Phone Stanley Toledo MD Primary Care Provider Ruby Vickers MD Unavailable Encounter Details Date Type Department Care Team (Late st Contact Info) Description 03/08/2024 Scanned Document [facility] [address] [place] [address] Scanning, Generic Provider Social History Tobacco Use [...] Description 03/29/2025 11:00 AM EST Office Visit [facility] 703 [facility] [address] [place] [address] Teo Stokes MD 7[address] [facility] 2, [address] [place] [address] documented as of this encounter Procedures Procedure Name Priority Date/Time Associated Diagnosis Comments OUTSIDE IMAGING SCAN 03/08/2024 documented in this encounter Results * OUTSIDE IMAGING SCAN (03/08/2024) Anatomical Region Laterality Modality Other Narrative 03/08/2024 Ordered by an unspecified provider. us Generic Provider Scanning OUTSIDE SCAN Final Result documented in this encounter Visit Diagnoses Not on filedocumented in this encounter Additional Health Concerns Assessment Noted Time A fall risk assessment has been complete d for the patient 02/10/2024 9:14 AM EDT documented as of this encounter Care Teams Air Conditioning Mechanic Relationship Specialty Start Date End Date Stanley Toledo MD [address] [place] [address] PCP - General 05/17/22 Ruby Vickers MD [address] [facility] Medical Office Bldg, [address] [place] [address] Court Worker Electrophysiology 10/04/24 documented as of this encounter
--- OUTSIDE RECORDS SUMMARY | 2024-10-27 11:27 | XMS_ITS | Encounter Summary ---
Author Organization [facility] Address [address] [place] [address] Care Team Providers Care Art Psychotherapist Or Therapist Name Role Phone Stanley Toledo MD Unavailable [phone] Stanley Toledo MD Primary Care Provider + [phone] Joi Zhang LPN Unavailable Unavailable Encounter Details Date Type Department Care Team (Late st Contact Info) Description 10/13/2024 Orders Only [facility] [address] [place] [address] Stanley Toledo MD [address] [place] [address] (Fax) Peripheral vascular disease (CMS/HCC) (Primary Dx); Presence of stent in artery Social History Tobacco Use Types Packs/Day Years [...] any clubs o r organizations such as baptist groups, unions, fraternal or athletic groups, or [...] Recorded Patient Health Questionnaire-2 Score 0 05/13/2024 [facility] - Occupational Stress [...] any time in the past 12 m [facility], were you homeless or living in a nursing home (including now)? No 12/31/2023 Sex and Gender Information Value Date Recorded Sex Assigned at Not on file Legal Sex Male 7:16 PM EDT Gender Identity Not on file Sexual Orientation Not on file documented as of this encounter Progress Notes * Stanley Toledo MD - 10/13/2024 8:31 AM EDT Reviewed the procedure note. Updated the medical record. documented in this encounter Plan of Treatment Upcoming Encounters Date Type Department Care Team (Late st Contact Info) Description 11/09/2024 2:00 PM EDT Office Visit [facility] [address] [place] [address] Stanley Toledo MD [address] [facility] [address] [place] [address] (Fax) documented as of this encounter Visit Diagnoses Diagnosis Peripheral vascular disease (CMS/HCC)- Primary Unspecified peripheral vascular disease Presence of stent in artery documented in this encounter Additional Health Concerns Assessment Noted Time PHQ-9 Depression Total Score: 3 05/13/20 24 2:00 PM EST A fall risk assessment has been complete d for the patient 12/31/2023 8:54 AM EDT documented as of this encounter Care Teams Art Psychotherapist Or Therapist Relationship Specialty Start Date End Date Stanley Toledo MD [address] [address] PCP - ACO Reach 10/17/22 Stanley Toledo MD [address] [address] PCP - General Family Medicine 11/20/22 Joi Zhang LPN 08/26/24 documented as of this encounter
--- OUTSIDE RECORDS SUMMARY | 2024-10-27 11:27 | XMS_ITS | Encounter Summary ---
Author Organization [facility] Address [address] [place] [address] Care Team Providers Care Beef Boner Name Role Phone Stanley Toledo MD Unavailable [phone] Stanley Toledo MD Primary Care Provider + [phone] Dora Santiago PROTOTYPE SEWER Unavailable Christina Goddard PROTOTYPE SEWER Unavailable Unavailable Joi Zhang PROTOTYPE SEWER Unavailable Unavailable Encounter Details Date Type Department Care Team (Late Contact Info) Description 09/19/2023 Abstract [facility] [address] [place] [address] Margarito Valentine MD [address] [place] [address] Social History Tobacco Use Types Packs/Day Years [...] EDT Office Visit [facility] 112 [facility] 100 [place] [address] Stanley Toledo MD 112 [facility] 100 [place] [address] documented as of this encounter Visit Diagnoses Not on filedocumented in this encounter Additional Health Concerns Assessment Noted Time PHQ-9 Depression Total Score: 3 05/12/20 23 1:00 PM EST documented as of this encounter Care Teams Beef Boner Relationship Specialty Start Date End Date Stanley Toledo MD [address] [place] [address] PCP - ACO Reach 10/17/22 Stanley Toledo MD [address] [place] [address] PCP - General Family Medicine 11/20/22 Dora Santiago LPN Licensed Practical Nurse Family Medicine 12/22/2308/26 Christina Goddard LPN Licensed Practical Nurse Family Medicine 12/25/23 Joi Zhang LPN 08/26/24 documented as of this encounter
--- OUTSIDE RECORDS SUMMARY | 2024-10-27 11:28 | XMS_ITS | Encounter Summary ---
Author Organization [facility] Address [address] [place] [address] Phone Care Team Providers Care Pressure Supervisor Name Role Phone Stanley Toledo MD Primary Care Provider Ruby Vickers MD Unavailable Encounter Details Date Type Department Care Team (Late st Contact Info) Description 07/14/2024 Scanned Document [facility] [address] [place] [phone] Scanning, Generic Provider Social History Tobacco Use [...] Description 03/29/2025 11:00 AM EST Office Visit [facility] 703 [facility] [address] [place] [address] Teo Stokes MD 703 [facility] 2, [address] [place] [address] documented as of this encounter Procedures Procedure Name Priority Date/Time Associated Diagnosis Comments OUTSIDE LAB SCAN 07/14/2024 documented in this encounter Results * OUTSIDE LAB SCAN (07/14/2024) Narrative 07/14/2024 Ordered by an unspecified provider. us Generic Provider Scanning OUTSIDE SCAN Final Result documented in this encounter Visit Diagnoses Not on filedocumented in this encounter Additional Health Concerns Assessment Noted Time A fall risk assessment has been complete d for the patient 02/10/2024 9:14 AM EDT documented as of this encounter Care Teams Pressure Supervisor Relationship Specialty Start Date End Date Stanley Toledo MD [address] [place] [address] PCP - General 05/17/22 Ruby Vickers MD [address] [facility] Medical Office Bldg, [address] [place] [address] Robotics Systems Engineer Electrophysiology 10/04/24 documented as of this encounter
--- OUTSIDE RECORDS SUMMARY | 2024-10-27 11:28 | XMS_ITS | Encounter Summary ---
Author Organization [facility] Address [address] [place] [address] Phone Care Team Providers Care Sawmill Moulder Operator Name Role Phone Stanley Toledo MD Primary Care Provider Ruby Vickers MD Unavailable Encounter Details Date Type Department Care Team (Late st Contact Info) Description 06/29/2024 Scanned Document [facility] [address] [place] [phone] Scanning, Generic Provider Social History Tobacco Use [...] 11:00 AM EST Office Visit [facility] 703 [facility] 250 [place] [address] Teo Stokes MD 7[address] [facility] 2, [address] [place] [address] documented as of this encounter Procedures Procedure Name Priority Date/Time Associated Diagnosis Comments OUTSIDE LAB SCAN 06/29/2024 documented in this encounter Results * OUTSIDE LAB SCAN (06/29/2024) Narrative 06/29/2024 Ordered by an unspecified provider. us Generic Provider Scanning OUTSIDE SCAN Final Result documented in this encounter Visit Diagnoses Not on filedocumented in this encounter Additional Health Concerns Assessment Noted Time A fall risk assessment has been complete d for the patient 02/10/2024 9:14 AM EDT documented as of this encounter Care Teams Sawmill Moulder Operator Relationship Specialty Start Date End Date Stanley Toledo MD [address] [place] [address] PCP - General 05/17/22 Ruby Vickers MD [address] [facility] Medical Office Bldg, [address] [place] [address] Public Policy Coordinator Electrophysiology 10/04/24 documented as of this encounter
--- OUTSIDE RECORDS SUMMARY | 2024-10-27 11:28 | XMS_ITS | Encounter Summary ---
Author Organization [facility] Address [address] [place] [address] Phone Care Team Providers Care Contact Lens Blocker Name Role Phone Stanley Toledo MD Primary Care Provider Ruby Vickers MD Unavailable Encounter Details Date Type Department Care Team (Late st Contact Info) Description 07/13/2024 Scanned Document [facility] [address] [place] [phone] Scanning, Generic Provider Social History Tobacco Use [...] Description 03/29/2025 11:00 AM EST Office Visit [facility] 703 [facility] 250 [place] [address] Teo Stokes MD 703 [facility] 2, [address] [place] [address] documented as of this encounter Procedures Procedure Name Priority Date/Time Associated Diagnosis Comments OUTSIDE LAB SCAN 07/13/2024 OUTSIDE LAB SCAN 07/13/2024 OUTSIDE LAB SCAN 07/13/2024 documented in this encounter Results * OUTSIDE LAB SCAN (07/13/2024) Narrative 07/13/2024 Ordered by an unspecified provider. us Generic Provider Scanning OUTSIDE SCAN Final Result * OUTSIDE LAB SCAN (07/13/2024) Narrative 07/13/2024 Ordered by an unspecified provider. us Generic Provider Scanning OUTSIDE SCAN Final Result * OUTSIDE LAB SCAN (07/13/2024) Narrative 07/13/2024 Ordered by an unspecified provider. us Generic Provider Scanning OUTSIDE SCAN Final Result documented in this encounter Visit Diagnoses Not on filedocumented in this encounter Additional Health Concerns Assessment Noted Time A fall risk assessment has been complete d for the patient 02/10/2024 9:14 AM EDT documented as of this encounter Care Teams Contact Lens Blocker Relationship Specialty Start Date End Date Stanley Toledo MD [address] [place] [address] PCP - General 05/17/22 Ruby Vickers MD [address] [facility] Medical Office Bldg, [address] [place] [address] Airplane Cleaner Electrophysiology 10/04/24 documented as of this encounter
--- OUTSIDE RECORDS SUMMARY | 2024-10-27 11:28 | XMS_ITS | Encounter Summary ---
Author Organization [facility] Address [address] [place] [address] Phone Care Team Providers Care Store Grocery Merchandiser Name Role Phone Stanley Toledo MD Primary Care Provider Ruby Vickers MD Unavailable Encounter Details Date Type Department Care Team (Late st Contact Info) Description 06/09/2024 Scanned Document [facility] [address] [place] [address] Scanning, Generic Provider Social History [...] suspected to have Coronavirus/COVID-19? No / Unsure 05/21/2024 9:39 AM EST documented as of this encounter Plan of Treatment Upcoming Encounters Date Type Department Care Team (Late st Contact Info) Description 03/29/2025 11:00 AM EST Office Visit [facility] 703 [facility] 250 [place] [address] Teo Stokes MD 703 [facility] 2, [address] [place] [address] documented as of this encounter Procedures Procedure Name Priority Date/Time Associated Diagnosis Comments OUTSIDE LAB SCAN 06/09/2024 documented in this encounter Results * OUTSIDE LAB SCAN (06/09/2024) Narrative 06/09/2024 Ordered by an unspecified provider. us Generic Provider Scanning OUTSIDE SCAN Final Result documented in this encounter Visit Diagnoses Not on filedocumented in this encounter Additional Health Concerns Assessment Noted Time A fall risk assessment has been complete d for the patient 02/10/2024 9:14 AM EDT documented as of this encounter Care Teams Store Grocery Merchandiser Relationship Specialty Start Date End Date Stanley Toledo MD [address] [place] [address] PCP - General 05/17/22 Ruby Vickers MD [address] [facility] Medical Office Bldg, [address] [place] [address] Basket Machine Operator Electrophysiology 10/04/24 documented as of this encounter
--- OUTSIDE RECORDS SUMMARY | 2024-10-27 11:28 | XMS_ITS | Encounter Summary ---
Author Organization [facility] Address [address] [place] [address] Phone Care Team Providers Care Trimmer And Reinforcer Name Role Phone Stanley Toledo MD Primary Care Provider Ruby Vickers MD Unavailable Encounter Details Date Type Department Care Team (Late st Contact Info) Description 06/17/2024 Scanned Document [facility] [address] [place] [address] Scanning, Generic Provider Social History [...] Description 03/29/2025 11:00 AM EST [facility] 703 [facility] 250 [place] [address] Teo Stokes MD 703 [facility] 2, [address] [place] [address] documented as of this encounter Procedures Procedure Name Priority Date/Time Associated Diagnosis Comments OUTSIDE LAB SCAN 06/17/2024 documented in this encounter Results * OUTSIDE LAB SCAN (06/17/2024) Narrative 06/17/2024 Ordered by an unspecified provider. us Generic Provider Scanning OUTSIDE SCAN Final Result documented in this encounter Visit Diagnoses Not on filedocumented in this encounter Additional Health Concerns Assessment Noted Time A fall risk assessment has been complete d for the patient 02/10/2024 9:14 AM EDT documented as of this encounter Care Teams Trimmer And Reinforcer Relationship Specialty Start Date End Date Stanley Toledo MD [address] [place] [address] PCP - General 05/17/22 Ruby Vickers MD 125 [address] [facility] Medical Office Bldg, [address] [place] [address] Internal Communications Writer Electrophysiology 10/04/24 documented as of this encounter
--- OUTSIDE RECORDS SUMMARY | 2024-10-27 11:28 | XMS_ITS | Encounter Summary ---
Author Organization [facility] Address [address] [place] [address] Phone Care Team Providers Care Head Of English Name Role Phone Stanley Toledo MD Primary Care Provider Ruby Vickers MD Unavailable Encounter Details Date Type Department Care Team (Late st Contact Info) Description 07/02/2024 Scanned Document [facility] [address] [place] [phone] Scanning, Generic Provider Social History Tobacco Use [...] Office Visit [facility] 703 [facility] 250 [place] [address] Teo Stokes MD 703 [facility] 2, [address] [place] [address] documented as of this encounter Procedures Procedure Name Priority Date/Time Associated Diagnosis Comments OUTSIDE LAB SCAN 07/02/2024 documented in this encounter Results * OUTSIDE LAB SCAN (07/02/2024) Narrative 07/02/2024 Ordered by an unspecified provider. us Generic Provider Scanning OUTSIDE SCAN Final Result documented in this encounter Visit Diagnoses Not on filedocumented in this encounter Additional Health Concerns Assessment Noted Time A fall risk assessment has been complete d for the patient 02/10/2024 9:14 AM EDT documented as of this encounter Care Teams Head Of English Relationship Specialty Start Date End Date Stanley Toledo MD [address] [place] [address] PCP - General 05/17/22 Ruby Vickers MD 125 [address] [facility] Medical Office Bldg, [address] [place] [address] Esthetician/Owner Electrophysiology 10/04/24 documented as of this encounter
--- OUTSIDE RECORDS SUMMARY | 2024-10-27 11:28 | XMS_ITS | Encounter Summary ---
Author Organization [facility] Address [address] [place] [address] Phone Care Team Providers Care Asphalt Distributor Tender Name Role Phone Stanley Toledo MD Primary Care Provider Ruby Vickers MD Unavailable Encounter Details Date Type Department Care Team (Late st Contact Info) Description 05/20/2024 Scanned Document [facility] [address] [place] [address] Scanning, Generic Provider Social History Tobacco Use [...] Description 03/29/2025 11:00 AM EST Office Visit [facility] 703 [facility] 250 [place] [address] Teo Stokes MD 703 [facility] 2, [address] [place] [address] documented as of this encounter Procedures Procedure Name Priority Date/Time Associated Diagnosis Comments OUTSIDE LAB SCAN 05/20/2024 documented in this encounter Results * OUTSIDE LAB SCAN (05/20/2024) Narrative 05/20/2024 Ordered by an unspecified provider. us Generic Provider Scanning OUTSIDE SCAN Final Result documented in this encounter Visit Diagnoses Not on filedocumented in this encounter Additional Health Concerns Assessment Noted Time A fall risk assessment has been complete d for the patient 02/10/2024 9:14 AM EDT documented as of this encounter Care Teams Asphalt Distributor Tender Relationship Specialty Start Date End Date Stanley Toledo MD [address] [place] [address] PCP - General 05/17/22 Ruby Vickers MD [address] [facility] Medical Office Bldg, [address] [place] [address] Buffing Wheel Former Machine Electrophysiology 10/04/24 documented as of this encounter
--- OUTSIDE RECORDS SUMMARY | 2024-10-27 11:28 | XMS_ITS | Encounter Summary ---
Author Organization [facility] Address [address] [place] [address] Phone Care Team Providers Care Medical Office Rep Name Role Phone Stanley Toldeo MD Primary Care Provider [phone] Ruby Vickers MD Unavailable Encounter Details Date Type Department Care Team (Late st Contact Info) Description 07/07/2024 Scanned Document [facility] [address] [place] [phone] Scanning, Generic Provider Social History Tobacco Use [...] Description 03/29/2025 11:00 AM EST Office Visit [facility] [address] [facility] 250 [place] [address] Teo Stokes MD 703 [facility] 2, [address] [place] [address] documented as of this encounter Procedures Procedure Name Priority Date/Time Associated Diagnosis Comments OUTSIDE LAB SCAN 07/07/2024 documented in this encounter Results * OUTSIDE LAB SCAN (07/07/2024) Narrative 07/07/2024 Ordered by an unspecified provider. us Generic Provider Scanning OUTSIDE SCAN Final Result documented in this encounter Visit Diagnoses Not on filedocumented in this encounter Additional Health Concerns Assessment Noted Time A fall risk assessment has been complete d for the patient 02/10/2024 9:14 AM EDT documented as of this encounter Care Teams Medical Office Rep Relationship Specialty Start Date End Date Stanley Toledo MD [address] [place] [address] PCP - General 05/17/22 Ruby Vickers MD 125 [address] [facility] Medical Office Bldg, [address] [place] [address] Stockroom Helper Electrophysiology 10/04/24 documented as of this encounter
--- OUTSIDE RECORDS SUMMARY | 2024-10-27 11:28 | XMS_ITS | Encounter Summary ---
Author Organization [facility] Address [address] [place] [address] Phone Care Team Providers Care Senior Clinical Project Manager Name Role Phone Stanley Toledo MD Primary Care Provider Ruby Vickers MD Unavailable Encounter Details Date Type Department Care Team (Late st Contact Info) Description 05/27/2024 Scanned Document [facility] [address] [place] [address] Scanning, Generic Provider Social History [...] Description 03/29/2025 11:00 AM EST Office Visit [facility] 703 [facility] 250 [place] [address] Teo Stokes MD 703 [facility] 2, [address] [place] [address] documented as of this encounter Procedures Procedure Name Priority Date/Time Associated Diagnosis Comments OUTSIDE LAB SCAN 05/27/2024 documented in this encounter Results * OUTSIDE LAB SCAN (05/27/2024) Narrative 05/27/2024 Ordered by an unspecified provider. us Generic Provider Scanning OUTSIDE SCAN Final Result documented in this encounter Visit Diagnoses Not on filedocumented in this encounter Additional Health Concerns Assessment Noted Time A fall risk assessment has been complete d for the patient 02/10/2024 9:14 AM EDT documented as of this encounter Care Teams Senior Clinical Project Manager Relationship Specialty Start Date End Date Stanley Toledo MD [address] [place] [address] PCP - General 05/17/22 Ruby Vickers MD [address] [facility] Medical Office Bldg, [address] [place] [address] Road Traffic Controller Electrophysiology 10/04/24 documented as of this encounter
[2024-10-27 11:48] LABS: Hematocrit 35.8 % (42.0-54.0); Hemoglobin 10.7 g/dL (14.0-18.0); Mean Corpuscular HGB Conc 29.9 g/dL (29.9-35.2); Mean Corpuscular Volume 80.4 fL (80.0-94.0); Mean Platelet Volume 9.6 fL (9.5-13.5); Platelet Count 235 10^3/uL (150-450); Red Blood Count 4.45 10^6/uL (4.70-6.10); Red Cell Distribution Width 18.7 % (11.0-15.0); White Blood Count 6.7 10^3/uL (4.0-11.0)
[2024-10-27 12:07] LABS: Creatinine Urine Random 77.97 mg/dL (20.00-300.00); Total Protein Urine Random 54.5 mg/dL (<=11.9)
[2024-10-27 12:13] LABS: Albumin Level 3.3 g/dL (3.4-5.0); Anion Gap 14.1; BUN Creatinine Ratio 16.1; Calcium 8.7 mg/dL (8.5-10.1); Carbon Dioxide 29.3 mmol/L (21.0-32.0); Chloride 104 mmol/L (98-107); Estimated GFR (African America 36 (>=60 mL/min/1.73m^2); Estimated GFR (Non-African Ame 29 (>=60 mL/min/1.73m^2); Glucose 95 mg/dL (74-106); Magnesium 2.1 mg/dL (1.8-2.4); Phosphorus 3.4 mg/dL (2.6-4.7); Potassium 3.4 mmol/L (3.5-5.1); Sodium 144 mmol/L (136-145)
[2024-10-27 13:23] LABS: Percent Iron Saturation 12.6 %
[2024-10-28 05:08] LABS: Vitamin B12 593 pg/mL (232-1245)
== END 2024-10-27 11:22 | disposition home or self-care (01) ==
LOC: LAB 11:23
PROVIDERS: PCP Family Medicine; Visit Provider Internal Medicine Nephrology
DX: D64.9 Anemia, unspecified (principal); I50.22 Chronic systolic (congestive) heart failure; I12.9 Hypertensive chronic kidney disease with stage 1 through stage 4 chronic kidney disease, or unspecified chronic kidney disease; E61.1 Iron deficiency; I71.40 Abdominal aortic aneurysm, without rupture, unspecified; N13.8 Other obstructive and reflux uropathy
CPT/HCPCS: 36415; 80069; 82570; 82607; 82746; 83540; 83550; 83735; 84156; 85027

== ENCOUNTER 2024-11-22 08:27 | Outpatient (RCR) | payer MEDICARE, OTHER, SELFPAY ==
[2024-11-15 13:05] VITALS: BP 100/62; PULSE 72; TEMP 36.4; O2SAT 94
[2024-11-15] MEDS: FERRIC CARBOXYMALTOSE 750 MG in 0.9 % SODIUM CHLORIDE 250 ML 795 MG IV (13:15)
[2024-11-22 13:00] VITALS: BP 107/67; PULSE 66; TEMP 36.1; O2SAT 96
[2024-11-22] MEDS: FERRIC CARBOXYMALTOSE 750 MG in 0.9 % SODIUM CHLORIDE 250 ML 795 MG IV (13:19)
== END 2024-11-22 23:59 | disposition home or self-care (01) ==
LOC: INF 08:27
PROVIDERS: PCP Family Medicine; Visit Provider Internal Medicine
DX: D64.9 Anemia, unspecified (principal); E61.1 Iron deficiency
CPT/HCPCS: 96365; J1439

== ENCOUNTER 2024-11-23 02:32 | Outpatient (RCR) | payer MEDICARE, OTHER, SELFPAY | END 2024-12-23 16:54 | disposition home or self-care (01) | LOC: MM 02:32 | PROVIDERS: PCP Family Medicine; Visit Provider Internal Medicine | DX: Z51.81 Encounter for therapeutic drug level monitoring (principal); Z79.01 Long term (current) use of anticoagulants; I48.91 Unspecified atrial fibrillation; R79.81 Abnormal blood-gas level | CPT/HCPCS: 85610; G0463 ==

== ENCOUNTER 2024-12-23 13:13 | Outpatient (OUT) | payer MEDICARE, OTHER, SELFPAY ==
--- OUTSIDE RECORDS SUMMARY | 2024-12-23 13:16 | XMS_ITS | Encounter Summary ---
Author Organization [facility] Address [address] [place] [address] Phone Care Team Providers Care Mold Maintenance Technician Name Role Phone Stanley Toledo MD Primary Care Provider Ruby Vickers MD Unavailable Encounter Details Date Type Department Care Team (Late st Contact Info) Description 10/07/2024 Scanned Document [facility] [address] [place] [address] Scanning, Generic Provider Social History [...] EST Office Visit [facility] 703 [facility] 250 [place] [address] Teo Stokes MD 703 [facility] 2, [address] [place] [address] documented as of this encounter [...] documented as of this encounter Care Teams Mold Maintenance Technician Relationship Specialty Start Date End Date Stanley Toledo MD [address] [place] [address] PCP - General 05/17/22 Ruby Vickers MD [address] [facility] Medical Office Bldg, [address] [place] [address] Java Technical Architect Electrophysiology 10/04/24 documented as of this encounter
--- OUTSIDE RECORDS SUMMARY | 2024-12-23 13:16 | XMS_ITS | Encounter Summary ---
Author Organization [facility] Address [address] [place] [address] Phone Care Team Providers Care Light Rail Signal Technician Name Role Phone Stanley Toledo MD Primary Care Provider Ruby Vickers MD Unavailable Encounter Details Date Type Department Care Team (Late st Contact Info) Description 08/18/2024 Scanned Document [facility] [address] [place] [address] Scanning, Generic Provider Social History [...] Description 03/29/2025 11:00 AM EST Office Visit [facility] 703 [facility] 250 [place] [address] Teo Stokes MD 703 [facility] 2, [address] [place] [address] documented as of this encounter Procedures Procedure Name Priority Date/Time Associated Diagnosis Comments OUTSIDE LAB SCAN 08/18/2024 documented in this encounter Results * OUTSIDE LAB SCAN (08/18/2024) Narrative 08/18/2024 Ordered by an unspecified provider. us Generic Provider Scanning OUTSIDE SCAN Final Result documented in this encounter Visit Diagnoses Not on filedocumented in this encounter Additional Health Concerns Assessment Noted Time A fall risk assessment has been complete d for the patient 02/10/2024 9:14 AM EDT documented as of this encounter Care Teams Light Rail Signal Technician Relationship Specialty Start Date End Date Stanley Toledo MD [address] [place] [address] PCP - General 05/17/22 Ruby Vickers MD [address] [facility] Medical Office Bldg, [address] [place] [address] Front Desk Agent Electrophysiology 10/04/24 documented as of this encounter
--- OUTSIDE RECORDS SUMMARY | 2024-12-23 13:16 | XMS_ITS | Encounter Summary ---
Author Organization [facility] Address [address] [place] [address] Phone Care Team Providers Care Metallic Yarn Slitting Machine Operator Name Role Phone Stanley Toledo MD Primary Care Provider [phone] Ruby Vickers MD Unavailable Encounter Details Date Type Department Care Team (Late st Contact Info) Description 08/23/2024 Scanned Document [facility] [address] [place] [address] Scanning, Generic Provider Social History Tobacco Use [...] Description 03/29/2025 11:00 AM EST Office Visit [facility] 703 [facility] [address] [place] [address] Teo Stokes MD 703 [facility] 2, [address] [place] [address] documented as of this encounter Visit Diagnoses Not on filedocumented in this encounter Additional Health Concerns Assessment Noted Time A fall risk assessment has been complete d for the patient 02/10/2024 9:14 AM EDT documented as of this encounter Care Teams Metallic Yarn Slitting Machine Operator Relationship Specialty Start Date End Date Stanley Toledo MD [address] [place] [address] PCP - General 05/17/22 Ruby Vickers MD [address] [facility] Medical Office Bldg, [address] [place] [address] Senior Scheduler Electrophysiology 10/04/24 documented as of this encounter
--- OUTSIDE RECORDS SUMMARY | 2024-12-23 13:16 | XMS_ITS | Encounter Summary ---
Author Organization [facility] Address [address] [place] [address] Phone Care Team Providers Care Aircraft Cabin Cleaner Name Role Phone Stanley Toledo MD Primary Care Provider [phone] Ruby Vickers MD Unavailable Encounter Details Date Type Department Care Team (Late st Contact Info) Description 08/26/2024 Scanned Document [facility] [address] [place] [address] Scanning, Generic Provider Social History [...] Description 03/29/2025 11:00 AM EST Office Visit [facility] 703 [facility] 250 [place] [address] Teo Stokes MD 703 [facility] 2, [address] [place] [address] documented as of this encounter [...] documented as of this encounter Care Teams Aircraft Cabin Cleaner Relationship Specialty Start Date End Date Stanley Toledo MD [address] [place] [address] PCP - General 05/17/22 Ruby Vickers MD [address] [facility] Medical Office Bldg, [address] [place] [address] Comber Operator Electrophysiology 10/04/24 documented as of this encounter
--- OUTSIDE RECORDS SUMMARY | 2024-12-23 13:16 | XMS_ITS | Encounter Summary ---
Author Organization [facility] Address [address] [place] [address] Phone Care Team Providers Care Blueprint Clerk Name Role Phone Stanley Toledo MD Primary Care Provider Ruby Vickers MD Unavailable Encounter Details Date Type Department Care Team (Late st Contact Info) Description 09/02/2024 Scanned Document [facility] [address] [place] [address] Scanning, Generic Provider Social History [...] Description 03/29/2025 11:00 AM EST Office Visit [facility] 703 [facility] 250 [place] [address] Teo Stokes MD 703 [facility] 2, [address] [place] [address] documented as of this encounter [...] documented as of this encounter Care Teams Blueprint Clerk Relationship Specialty Start Date End Date Stanley Toledo MD [address] [place] [address] PCP - General 05/17/22 Ruby Vickers MD [address] [facility] Medical Office Bldg, [address] [place] [address] Body Work Auto Trimmer Electrophysiology 10/04/24 documented as of this encounter
--- OUTSIDE RECORDS SUMMARY | 2024-12-23 13:17 | XMS_ITS | Encounter Summary ---
Author Organization [facility] Address [address] [place] [address] Care Team Providers Care Conversion Worker Name Role Phone Stanley Toledo MD Unavailable [phone] Stanley Toledo MD Primary Care Provider [phone] Dora Santiago AUTOMOTIVE PRODUCT ENGINEER Unavailable Vicente Joi AUTOMOTIVE PRODUCT ENGINEER Unavailable Encounter Details Date Type Department Care Team (Late st Contact Info) Description 03/31/2024 Clinisync Result Encounter [facility] External Department Unsolicited Provider, Generic External Data Social History Tobacco Use Types Packs/Day Years Used Date Smoking Tobacco: Former Cigarettes 0.5 61 S tarted: 12/31/1963 Smokeless Tobacco: Never Alcohol [...] often do you attend chur ch or methodist services? Never 12/31/2023 Do you belong to [...] Recorded Patient Health Questionnaire-2 Score 0 12/31/2023 [facility] Answer Date [...] any time in the past 12 m [facility], were you homeless or living in a chcf (including now)? No 12/31/2023 Sex and Gender Information Value Date Recorded Sex Assigned at Not on file Legal Sex Male 7:16 PM EDT Gender Identity Not on file Sexual Orientation Not on file documented as of this encounter Plan of Treatment Upcoming Encounters Date Type Department Care Team (Late st Contact Info) Description 05/10/2025 2:00 PM EST Office Visit [facility] [address] [facility] 100 [place] [address] Stanley Toledo MD 112 [facility] 100 [place] [address] documented as of this encounter Procedures Procedure Name Priority Date/Time Associated Diagnosis Comments ITP 03/31/2024 12:39 PM EST documented in this encounter Results * ITP (03/31/2024 12:39 PM EST) Anatomical Region Laterality Modality Other 03/31/2024 12:3 9 PM EST Narrative 03/31/2024 8:55 PM EST The [address] [address] Cardiac Rehab Report Signed Patient: ALEX GRAJEDA MR#: [id number] : 1945 Acct:[id number] Age/Sex: 78 / M ADM Date: 03/31/24 Loc: CR Attending Dr: MAGDY AL Ordering Physician: Arnol Garnica D.O. Date of Service: 03/31/24 Procedure(s): ITP Accession Number(s): [id number] cc: [facility] Test Date: 2024-03-31 Pat Name: ALEX GRAJEDA Department: Room: - Gender: Male Gear Cutting Machine Set Up Operator: : 1945 Requested By: ARNOL GARNICA Order Number: [id number] Silverio MD: ARNOL GARNICA Interpretive Statements Session Date: Electronically Signed On 03-31-2024 20:54:52 EST by ARNOL GARNICA Dictated By: Arnol Garnica D.O. Signed By: 03/31/24205403/31/242054 DD/ 123 TD/TT: Cold Storage Superintendent: Procedure Note Radiology, Radiologist, MD - 03/31/2024 [place] [address] Cardiac Rehab Report Signed Patient: ALEX GRAJEDA HMR#: [id number] : 1945cct:[id number] Age/Sex: 78 / MADM Date: 03/31/24 Loc: CR Attending Dr: MAGDY AL Ordering Physician: Arnol Garnica D.O. Date of Service: 03/31/24 Procedure(s): ITP Accession Number(s): [id number] cc: [facility] Test Date: 2024-03-31 Pat Name: ALEX GRAJEDA Department: Room: - Gender: Male Gear Cutting Machine Set Up Operator: : 1945 Requested By: ARNOL GARNICA Order Number: [id number] Silverio CASILLAS: ARNOL GARNICA Interpretive Statements Session Date: Electronically Signed On 03-31-2024 20:54:52 EST by ARNOL GARNICA Dictated By: Arnol Garnica D.O. Signed By:03/31/24205403/31/242054 DD/ 123 TD/TT: Cold Storage Superintendent: us Generic External Data Provider [facility] Final Result documented in this encounter Visit Diagnoses Not on filedocumented in this encounter Additional Health Concerns Assessment Noted Time PHQ-9 Depression Total Score: 3 05/12/20 23 1:00 PM EST A fall risk assessment has been complete d for the patient 12/31/2023 8:54 AM EDT documented as of this encounter Care Teams Conversion Worker Relationship Specialty Start Date End Date Stanley Toledo MD [address] [place] [address] PCP - ACO Reach 10/17/22 Stanley Toledo MD [address] [place] [address] PCP - General Family Medicine 11/20/22 Dora Santiago LPN [address] [place] [address] Licensed Practical Nurse Family Medicine 12/22/23 Joi Zhang LPN [address] [place] [address] 08/26/24 documented as of this encounter
--- OUTSIDE RECORDS SUMMARY | 2024-12-23 13:17 | XMS_ITS | Encounter Summary ---
Author Organization [facility] Address [address] [place] [address] Care Team Providers Care Metal Refiner Name Role Phone Stanley Toledo MD Unavailable [phone] Stanley Toledo MD Primary Care Provider + [phone] Dora Santiago FINISHED HARDWARE ERECTOR Unavailable Christina Goddard FINISHED HARDWARE ERECTOR Unavailable Unavailable Joi Zhang FINISHED HARDWARE ERECTOR Unavailable Encounter Details Date Type Department Care Team (Late Contact Info) Description 05/13/2023 Abstract [facility] Family Medicine [address] [place] [address] Audrey Topete RN Social History Tobacco Use Types Packs/Day Years [...] Department Care Team (Late Contact Info) Description 05/10/2025 2:00 PM EST Office Visit [facility] Family Medicine 112 [facility] 100 [place] [address] Stanley Toledo MD 112 [facility] 100 [place] [address] (Fax) documented as of this encounter Visit Diagnoses Not on filedocumented in this encounter Additional Health Concerns Assessment Noted Time PHQ-9 Depression Total Score: 3 05/12/20 23 1:00 PM EST documented as of this encounter Care Teams Metal Refiner Relationship Specialty Start Date End Date Stanley Toledo MD [address] [place] [address] PCP - ACO Reach 10/17/22 Stanley Toledo MD [address] [place] [address] PCP - General Family Medicine 11/20/22 Dora Santiago LPN [address] [place] [address] Licensed Practical Nurse Family Medicine 12/22/23 Christina Goddard LPN Licensed Practical Nurse Family Medicine 12/25/23 Joi Zhang LPN [address] [place] [address] 08/26/24 documented as of this encounter
--- OUTSIDE RECORDS SUMMARY | 2024-12-23 13:17 | XMS_ITS | Encounter Summary ---
Author Organization [facility] Address [address] [place] [address] Phone Care Team Providers Care Curb Hop Name Role Phone Stanley Toledo MD Primary Care Provider Ruby Vickers MD Unavailable Encounter Details Date Type Department Care Team (Late st Contact Info) Description 09/16/2024 Scanned Document [facility] [address] [place] [address] Scanning, Generic Provider Social History [...] Description 03/29/2025 11:00 AM EST Office Visit [facility] 703 [facility] [address] [place] [address] Teo Stokes MD 703 [facility] 2, [address] [place] [address] documented as of this encounter [...] documented as of this encounter Care Teams Curb Hop Relationship Specialty Start Date End Date Stanley Toledo MD [address] [place] [address] PCP - General 05/17/22 Ruby Vickers MD 125 [address] [facility] Medical Office Bldg, [address] [place] [address] Supervisor Roving Electrophysiology 10/04/24 documented as of this encounter
--- OUTSIDE RECORDS SUMMARY | 2024-12-23 13:17 | XMS_ITS | Encounter Summary ---
Author Organization [facility] Address [address] [place] [address] Care Team Providers Care Computer Repairer Name Role Phone Stanley Toledo MD Unavailable [phone] Stanley Toledo MD Primary Care Provider [phone] Dora Santiago BRAILLE AND TALKING BOOKS CLERK Unavailable Christina Goddard BRAILLE AND TALKING BOOKS CLERK Unavailable Unavailable Joi Zhang BRAILLE AND TALKING BOOKS CLERK Unavailable Encounter Details Date Type Department Care Team (Late Contact Info) Description 12/10/2022 Abstract [facility] Family Medicine [address] [place] [address] Stanley Toledo MD [address] [address] (Fax) Social History Tobacco Use Types Packs/Day [...] Visit [facility] 100 Family Medicine [address] [address] Stanley Toledo MD [address] [address] (Fax) documented as of this encounter Visit Diagnoses Not on filedocumented in this encounter Care Teams Computer Repairer Relationship Specialty Start Date End Date Stanley Toledo MD [address] [place] [address] PCP - ACO Reach 10/17/22 Stanley Toledo MD [address] [place] [address] PCP - General Family Medicine 11/20/22 Dora Santiago LPN [address] [place] [address] Licensed Practical Nurse Family Medicine 12/22/23 Christina Goddard LPN Licensed Practical Nurse Family Medicine 12/25/23 Joi Zhang LPN [address] [place] [address] 08/26/24 documented as of this encounter
--- OUTSIDE RECORDS SUMMARY | 2024-12-23 13:17 | XMS_ITS | Encounter Summary ---
Author Organization [facility] Address [address] [place] [address] Care Team Providers Care Data Warehouse Consultant Name Role Phone Stanley Toledo MD Unavailable [phone] Stanley Toledo MD Primary Care Provider [phone] Dora Santiago BOAT LOADER Unavailable Christina Goddard BOAT LOADER Unavailable Unavailable Joi Zhang BOAT LOADER Unavailable Encounter Details Date Type Department Care Team (Late Contact Info) Description 12/11/2022 Abstract [facility] Family Medicine [address] [place] [address] Stanley Toledo MD [address] [address] (Fax) Social History Tobacco Use Types Packs/Day [...] Visit [facility] 100 Family Medicine [address] [address] Stanley Toledo MD [address] [address] (Fax) documented as of this encounter Visit Diagnoses Not on filedocumented in this encounter Care Teams Data Warehouse Consultant Relationship Specialty Start Date End Date Stanley Toledo MD [address] [place] [address] PCP - ACO Reach 10/17/22 Stanley Toledo MD [address] [place] [address] PCP - General Family Medicine 11/20/22 Dora Santiago LPN [address] [place] [address] Licensed Practical Nurse Family Medicine 12/22/23 Christina Goddard LPN Licensed Practical Nurse Family Medicine 12/25/23 Joi Zhang LPN [address] [place] [address] 08/26/24 documented as of this encounter
--- OUTSIDE RECORDS SUMMARY | 2024-12-23 13:17 | XMS_ITS | Encounter Summary ---
Author Organization [facility] Address [address] [place] [address] Care Team Providers Care Food Service Substitute Name Role Phone Stanley Toledo MD Unavailable [phone] Stanley Toledo MD Primary Care Provider + [phone] Dora Santiago KERFER MACHINE OPERATOR Unavailable Vicente Joi KERFER MACHINE OPERATOR Unavailable Encounter Details Date Type Department Care [...] often do you attend chur ch or worship services? Never 12/31/2023 Do you belong to [...] Recorded Patient Health Questionnaire-2 Score 0 12/31/2023 [facility] Questionnaire Answer Date [...] in the past 12 m [facility], were you homeless or living in a [...] Medicine [address] [facility] 100 [place] [address] Stanley Toledo MD 112 [facility] 100 [place] [address] documented as of this encounter Procedures Procedure Name Priority Date/Time Associated Diagnosis Comments RT PULMONARY FUNCTION TEST 03/23/2024 12:59 PM EDT documented in this encounter Results * RT PULMONARY FUNCTION TEST (03/23/2024 12:59 PM EDT) Anatomical Region Laterality Modality Other 03/23/2024 12:5 9 PM EDT Narrative 03/24/2024 5:50 PM EDT The [address] [address] Respiratory Report Signed Patient: ALEX GRAJEDA MR#: [id number] : 1945 Acct:[id number] Age/Sex: 78 / M ADM Date: 03/23/24 Loc: CARD Attending Dr: MAGDY AL Ordering Physician: MAGDY AL Date of Service: 03/23/24 Procedure(s): RT pulmonary function test Accession Number(s): [id number] cc: [facility] Test Date: 2024-03-23 Pat Name: ALEX GRAJEDA Department: Room: - Gender: Male Erp Business Analyst: Reymundo Alamo RRT : 1945 Requested By: 358 Order Number: [id number] Reading MD: Aayush Gallo Interpretive Statements Pulmonary [...] Signed By: 03/24/24 1750 DD/ 1259 TD/TT: Mixer Whipped Topping: Procedure Note Radiology, Radiologist, MD - 03/24/2024 [place] [address] Respiratory Report Signed Patient: ALEX GRAJEDA HMR#: [id number] : 1945cct:[id number] Age/Sex: 78 / MADM Date: 03/23/24 Loc: CARD Attending Dr: MAGDY AL Ordering Physician: MAGDY AL Date of Service: 03/23/24 Procedure(s): RT pulmonary function test Accession Number(s): [id number] cc: [facility] Test Date: 2024-03-23 Pat Name: ALEX GRAJEDA Department: Room: - Gender: Male Erp Business Analyst: Reymundo Alamo RRT : 1945 Requested By: 358 Order Number: [id number] Reading MD: Aayush Gallo Interpretive Statements Pulmonary [...] Dictated By: Aayush Gallo D.O. Signed By:03/24/24 1750 DD/ 1259 TD/TT: Mixer Whipped Topping: Generic External Data Provider [facility] Final Result documented in this encounter Visit Diagnoses Not on filedocumented in this encounter Additional Health Concerns Assessment Noted Time PHQ-9 Depression Total Score: 3 05/12/20 23 1:00 PM EST A fall risk assessment has been complete d for the patient 12/31/2023 8:54 AM EDT documented as of this encounter Care Teams Food Service Substitute Relationship Specialty Start Date End Date Stanley Toledo MD 112 [place] [address] PCP - ACO Reach 10/17/22 Stanley Toledo MD [address] [place] [address] PCP - General Family Medicine 11/20/22 Dora Santiago LPN [address] [place] [address] Licensed Practical Nurse Family Medicine 12/22/23 Joi Zhang LPN [address] [place] [address] 08/26/24 documented as of this encounter
--- OUTSIDE RECORDS SUMMARY | 2024-12-23 13:17 | XMS_ITS | Encounter Summary ---
Author Organization [facility] Address [address] [place] [address] Care Team Providers Care Dog Handler Or Trainer Name Role Phone Stanley Toledo MD Unavailable [phone] Stanley Toledo MD Primary Care Provider + [phone] Dora Santiago PRINTING SALES REPRESENTATIVE Unavailable Vicente Joi PRINTING SALES REPRESENTATIVE Unavailable Encounter Details Date Type Department Care Team (Late st Contact Info) Description 01/27/2024 Abstract [facility] [place] 521 Family Medicine [address] [facility] [place] [address] Dariusz Pruett MD 703 [facility] 2, [address] [address] Social History Tobacco Use Types Packs/Day Years Used Date Smoking Tobacco: Every Day Cigarettes 0.5 61 Started: 12/31/1965 Smokeless Tobacco: Never Alcohol Use [...] often do you attend chur ch or bahai services? Never 12/31/2023 Do you belong to any clubs o r organizations such as anabaptist groups, unions, fraternal or athletic groups, or [...] Recorded Patient Health Questionnaire-2 Score 0 12/31/2023 [facility] - Occupational Stress Questionnaire Answer Date [...] any time in the past 12 m [facility], were you homeless or living in a usp (including now)? No 12/31/2023 Sex and Gender Information Value Date Recorded Sex Assigned at Not on file Legal Sex Male 7:16 PM EDT Gender Identity Not on file Sexual Orientation Not on file documented as of this encounter Plan of Treatment Upcoming Encounters Date Type Department Care Team (Late st Contact Info) Description 05/10/2025 2:00 PM EST Office Visit [facility] 112 [facility] 100 [place] [address] Stanley Toledo MD [address] [address] documented as of this encounter Visit Diagnoses Not on filedocumented in this encounter Additional Health Concerns Assessment Noted Time PHQ-9 Depression Total Score: 3 05/12/20 23 1:00 PM EST A fall risk assessment has been complete d for the patient 12/31/2023 8:54 AM EDT documented as of this encounter Care Teams Dog Handler Or Trainer Relationship Specialty Start Date End Date Stanley Toledo MD 112 [address] [place] [address] PCP - ACO Reach 10/17/22 Stanley Toledo MD 112 [place] [facility] 100 [place] [address] PCP - General Family Medicine 11/20/22 Dora Santiago LPN [address] [place] [address] Licensed Practical Nurse Family Medicine 12/22/23 Joi Zhang LPN 112 [facility] 110 [place] [address] 08/26/24 documented as of this encounter
--- OUTSIDE RECORDS SUMMARY | 2024-12-23 13:17 | XMS_ITS | Clinical Summary ---
Author Organization [facility] Address [address] [place] [address] Phone Care Team Providers Care Drop Hammer Operator Helper Name Role Phone Stanley Toledo MD Primary Care Provider [phone] Ruby Vickers MD Unavailable Allergies No known [...] mg) by mouth once daily. 4 Active potassium chloride CR (Klor-Con M20) 20 mEq ER tabletIndications :Hypokalemia Take 1 tablet (20 mEq) by mouth once daily. Do not crush or chew. 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 Follow with [facility]. Patient will take coumadin and eliquis together for 3 days only 14 tablet 4 03/04/20 25 Active metoprolol succinate XL (Toprol-XL) 25 mg 24 hr tabletIndications :Cardiomyopathy, ischemic Take 1 tablet (25 mg) by mouth once daily. Do not crush or chew. 90 tablet 3 4 05/21/20 25 Active methIMAzole (Tapazole) 5 mg tabletIndications :High risk medication use,Hyperthyroidi sm Take 1 tablet (5 mg) by mouth 2 times a day. 180 tablet 3 5 07/30/19 26 Active QUEtiapine (SEROquel) 25 mg tablet Take 1 tablet (25 mg) by mouth once daily at bedtime. 5 Active rivastigmine (Exelon) 4.6 mg/[address] 1 patch on the skin once daily. 5 Active enoxaparin (Lovenox) 100 mg/mL syringeIndication s:Cardiomyopathy, ischemic,S/P PTCA (percutaneous transluminal coronary angioplasty),Paro xysmal atrial fibrillation (Multi) Inject 1 mL (100 [...] of the procedure. 3 each 5 Active amiodarone (Pacerone) 200 mg tabletIndications :Paroxysmal atrial fibrillation (Multi) TAKE 1 TABLET BY MOUTH EVERY DAY 90 tablet 1 5 Active Active Problems Problem Noted Date Diagnosed Date Body mass index (BMI) 25.0-25.9, adult 5 Encounter for medication review and counseling 0 10/08/2024 Encounter to discuss test results 10/08/2024 Encounter to discuss treatment options 5 Encounter to establish care with new provider Ventricular ectopy/arrhythmi a, pre-operative cardiovascular exam 10/08/2024 S/P PTCA (percutaneous transluminal coronary ang ioplasty) 02/10/2024 Coronary artery disease invo lving assiniboine and sioux coronary artery 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 angina pectoris 02/10/2024 Paroxysmal atrial fibrillation (Multi) Former smoker 02/10/2024 High risk medication use 02/10/2024 STEMI (ST elevation myocardial infarction) (Mult i) 02/10/2024 Cardiomyopathy, ischemic 02/10/2024 Dyslipidemia 08/11/2023 Essential hypertension 08/11/2023 Stage 3a chronic kidney disease (Multi) 05/12/20 23 Abdominal aortic aneurysm (A AA) greater than 5.5 cm in diameter in male 11/11/2022 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 Transient cerebral ischemic attack 05/16/2022 Resolved Problems Problem Noted Date Diagnosed Date Resolved Date BMI 26.0-26.9,adult 02/10/2024 10/09/19 25 Encounters Date Type Department Care Team Description 11/01/2024 Refill [facility] [address] [place] [address] Magdy Stokes MD Paroxysmal atrial fibrillation (Multi) 10/19/2024 Telephone [facility] [address] [place] [address] Almita Howard MA 10/19/2024 Telephone [facility] [address] [place] [address] Leanne Soriano LPN 10/08/2024 3:00 PM EDT Office Visit [facility] [address] [place] [address] Ruby Vickers MD Cardiomyopathy, ischemic (Primary Dx); [...] supraventricular arrhythmia 10/08/2024 Travel 10/07/2024 Scanned Document [facility] [address] [place] [address] Scanning, Generic Provider from Last [...] Office Visit [facility] [address] [address] Magdy Stokes MD 703 [facility] 2, [address] [place] [address] Health Maintenance Due Date Last Done Comments Creatinine Level 1945 Lipid Panel 1945 Medicare Annual Wellness Visit (AWV) 1945 Potassium Level 1945 Diabetes Screening 11/30/1961 CKD: Urine Protein Screening 11/30/1962 DTaP/Tdap/Td Vaccines (1 - Tdap) 11/30/1965 Zoster Vaccines (1 of 2) 11/30/1993 COVID-19 Vaccine (4 - season) 2024 03/19/2024, 02/16/2023, 03/29/2022, Additional history exists Influenza Vaccine (#1) 2025 , 03/26/2023, 05/20/2022, Additional history exists Echocardiogram 08/06/2025 08/06/2024, 08/2 07/2023, 05/16/2022 TSH Level 10/02/2025 10/02/2024 Pneumococcal Vaccine Completed 05/28/2023, 04/23/20 21 RSV High Risk: (Elderly (60+) or Population) [...] Associated Diagnosis Comments OUTSIDE LAB SCAN 10/07/2024 TRANSTHORACIC ECHO (TTE) LIMITED Routine 08/06/2024 12:[address] elevation myocardial infarction (STEMI), unspecified artery (Multi) Cardiomyopathy, ischemic 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 us Generic Provider Scanning OUTSIDE SCAN Final Result * TRANSTHORACIC ECHO (TTE) LIMITED (08/06/2024 12:04 PM EDT) [facility] Signature AV mn grad 4 mmHg SYNGO AV [...] Narrative SYNGO - 08/11/2024 5:54 PM EDT [address], [address] [address] TRANSTHORACIC ECHOCARDIOGRAM REPORT Patient Name: ALEX Sawyer Physician: [id number] Mally Torres MD Study Date: 08/06/2024 Ordering Provider: [id number] MAGDY STOKES MRN/PID: [id number] Fellow: Nurse: Date of /Age: 7 1945 / 78 years Hogshead Head Matcher: Marlyn Castro RDCS, RT(R), RDMS, RVT Gender Assigned at Additional Staff: : Height: 187.96 cm Admit Date: Weight: 92.53 kg Admission Status: Outpatient BSA / BMI: 2.19 m2 / 26.19 Department Location: [facility] Heart kg/m2 Dominic Blood Pressure: 98 /64 mmHg Study Type: TRANSTHORACIC ECHO (TTE) LIMITED Diagnosis/ICD: 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 Pertinent History: A-Fib, [...] 0.6 m/s (0.6-0.9m/s) PV Max P.6 mmHg [id number] Mally Torres MD Electronically signed on 08/11/2024 at 5:54:03 PM Final Procedure Note Mally Torres MD - 08/11/[address], [address] [place] [address] TRANSTHORACIC ECHOCARDIOGRAM REPORT Patient Name: ALEX Sawyer Physician: [id number] RemyD Study Date: 08/06/2024 Ordering Provider: [id number] ALYSSIA STOKES MRN/PID: [id number] Fellow: Nurse: Date of /Age: 7 1945 / 78 years Hogshead Head Matcher: Zeke YOO,RT(R), RDMS, RVT Gender Assigned at M Additional Staff: : Height: 187.96 cm Admit Date: Weight: 92.53 kg Admission Status: Outpatient BSA / BMI: 2.19 m2 / 26.19 Department Location: [facility] kg/[address] Blood Pressure: 98 /64 mmHg Study Type: TRANSTHORACIC ECHO (TTE) LIMITED Diagnosis/ICD: 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 Pertinent History: A-Fib, [...] 0.6 m/s (0.6-0.9m/s) PV Max P.6 mmHg [id number] Mally Torres MD Electronically signed on 08/11/2024 at 5:54:03 PM Final us Magdy Stokes MD CV ECHO PROCEDURES Final Res ult SYNGO from Last 3 Months or Most Recently Relevant to Health Maintenance Insurance MEDICARE PART A AND B [employer] MEDICARE SUPPLEMENT MEDICARE PART A AND B [employer] MEDICARE SUPPLEMENT Care Teams Drop Hammer Operator Helper Relationship Specialty Start Date End Date Stanley Toledo MD [address] [place] [address] PCP - General 05/17/22 Ruby Vickers MD [address] [facility] [address] [place] [address] Residential Sales Representative Electrophysiology 10/04/24
--- OUTSIDE RECORDS SUMMARY | 2024-12-23 13:17 | XMS_ITS | Encounter Summary ---
Author Organization [facility] Address [address] [place] [address] Care Team Providers Care Pickle Maker Name Role Phone Stanley Toledo MD Unavailable [phone] Stanley Toledo MD Primary Care Provider [phone] Dora Santiago ENTRY LEVEL MANAGEMENT Unavailable Christina Goddard ENTRY LEVEL MANAGEMENT Unavailable Unavailable Joi Zhang ENTRY LEVEL MANAGEMENT Unavailable Encounter Details Date Type Department Care Team (Late Contact Info) Description 10/22/2022 Abstract [facility] [address] [place] [address] Stanley Toledo MD [address] [address] (Fax) Social History Tobacco Use Types Packs/Day [...] Visit [facility] [address] [address] Stanley Toledo MD [address] [address] (Fax) documented as of this encounter Visit Diagnoses Not on filedocumented in this encounter Care Teams Pickle Maker Relationship Specialty Start Date End Date Stanley Toledo MD [address] [place] [address] PCP - ACO Reach 10/17/22 Stanley Toledo MD [address] [place] [address] PCP - General Family Medicine 11/20/22 Dora Santiago LPN [address] [place] [address] Licensed Practical Nurse Family Medicine 12/22/23 Christina Goddard LPN Licensed Practical Nurse Family Medicine 12/25/23 Joi Zhang LPN [address] [place] [address] 08/26/24 documented as of this encounter
--- OUTSIDE RECORDS SUMMARY | 2024-12-23 13:17 | XMS_ITS | Encounter Summary ---
Author Organization [facility] Address [address] [place] [address] Care Team Providers Care Medical Office Technician Name Role Phone Stanley Toledo MD Unavailable [phone] Stanley Toledo MD Primary Care Provider [phone] Dora Santiago EQUIPMENT MONITOR PHOTOTYPESETTING Unavailable Christina Goddard EQUIPMENT MONITOR PHOTOTYPESETTING Unavailable Unavailable Joi Zhang EQUIPMENT MONITOR PHOTOTYPESETTING Unavailable Encounter Details Date Type Department Care Team (Late Contact Info) Description 01/22/2023 Abstract [facility] Family Medicine [address] [place] [address] Teo Stokes MD 703 [facility] 2, [address] [address] Social History Tobacco Use Types Packs/Day Years [...] Visit [facility] 112 [facility] 100 [place] [address] Stanley Toledo MD 112 [facility] 100 [place] [address] (Fax) documented as of this encounter Visit Diagnoses Not on filedocumented in this encounter Care Teams Medical Office Technician Relationship Specialty Start Date End Date Stanley Toledo MD [address] [place] [address] (Fax) PCP - ACO Reach 10/17/22 Stanley Toledo MD [address] [place] [address] (Fax) PCP - General Family Medicine 11/20/22 Dora Santiago LPN [address] [place] [address] Licensed Practical Nurse Family Medicine 12/22/23 Christina Goddard LPN Licensed Practical Nurse Family Medicine 12/25/23 Joi Zhang LPN [address] [place] [address] 08/26/24 documented as of this encounter
--- OUTSIDE RECORDS SUMMARY | 2024-12-23 13:17 | XMS_ITS | Encounter Summary ---
Author Organization [facility] Address [address] [place] [address] Care Team Providers Care Fuel Verification Technician Name Role Phone Stanley Toledo MD Unavailable [phone] Stanley Toledo MD Primary Care Provider + [phone] Dora Santiago MAGNETIC LOCATER Unavailable Joi Zhang MAGNETIC LOCATER Unavailable Encounter Details Date Type Department Care Team (Late st Contact Info) Description 01/21/2024 Orders Only [facility] [place] [address] Family Medicine 112 [facility] 100 [place] [address] Willy Lambert MD 703 [facility] 151 [place] [address] Social History Tobacco Use Types [...] often do you attend chur ch or scientologist services? Never 12/31/2023 Do you belong to any clubs o r organizations such as restoration groups, unions, fraternal or athletic groups, or [...] Recorded Patient Health Questionnaire-2 Score 0 12/31/2023 [facility] of Occupat ional Health - Occupational Stress [...] any time in the past 12 m [facility], were you homeless or living [...] 2:00 PM EST Office Visit [facility] Family Medicine 112 [facility] 100 [place] [address] Stanley Toledo MD 112 [facility] 100 [place] [address] documented as of this encounter Procedures Procedure [...] documented as of this encounter Care Teams Fuel Verification Technician Relationship Specialty Start Date End Date Stanley Toledo MD [address] [place] [address] PCP - ACO Reach 10/17/22 Stanley Toledo MD [address] [place] [address] PCP - General Family Medicine 11/20/22 Dora Santiago LPN [address] [place] [address] Licensed Practical Nurse Family Medicine 12/22/23 Joi Zhang LPN [address] [place] [address] 08/26/24 documented as of this encounter
--- OUTSIDE RECORDS SUMMARY | 2024-12-23 13:17 | XMS_ITS | Encounter Summary ---
Author Organization [facility] Address [address] [place] [address] Care Team Providers Care Health Program Specialist Name Role Phone Stanley Toledo MD Unavailable [phone] Stanley Toledo MD Primary Care Provider + [phone] Dora Santiago FIELD MACHINIST Unavailable Vicente Joi FIELD MACHINIST Unavailable Encounter Details Date Type Department Care [...] often do you attend chur ch or mosque services? Never 12/31/2023 Do you belong to any clubs o r organizations such as buddhism groups, unions, fraternal or athletic groups, or [...] Recorded Patient Health Questionnaire-2 Score 0 12/31/2023 [facility] Answer Date Recorded [...] were you homeless or living in a long-term (including now)? No 12/31/2023 Sex and Gender [...] Visit [facility] 112 [facility] 100 [place] [address] Stanley Toledo MD 112 [facility] 100 [place] [address] documented as of this encounter Procedures Procedure Name Priority Date/Time Associated Diagnosis Comments ITP 03/24/2024 11:46 AM EDT documented in this encounter Results * ITP (03/24/2024 11:46 AM EDT) Anatomical Region Laterality Modality Other 03/24/2024 11:4 6 AM EDT Narrative 03/24/2024 11:29 PM EDT The [address] [address] Cardiac Rehab Report Signed Patient: ALEX GRAJEDA MR#: [id number] : 1945 Acct:[id number] Age/Sex: 78 / M ADM Date: 03/24/24 Loc: CR Attending Dr: MAGDY AL Ordering Physician: Arnol Garnica D.O. Date of Service: 03/24/24 Procedure(s): ITP Accession Number(s): [id number] cc: [facility] Test Date: 2024-03-24 Pat Name: ALEX GRAJEDA Department: Room: - Gender: Male Telecommunications Repairer: : 1945 Requested By: ARNOL GARNICA Order Number: [id number] Silverio MD: ARNOL GARNICA Interpretive Statements Session Date: Electronically Signed On 03-24-2024 23:29:20 EDT by ARNOL GARNICA Dictated By: Arnol Garnica D.O. Signed By: 03/24/24232803/24/242328 DD/ 114 TD/TT: Pipe Line Repairer: Procedure Note Radiology, Radiologist, MD - 03/24/2024 [place] [address] Cardiac Rehab Report Signed Patient: ALEX GRAJEDA HMR#: [id number] : 1945cct:[id number] Age/Sex: 78 / MADM Date: 03/24/24 Loc: CR Attending Dr: MAGDY AL Ordering Physician: Arnol Garnica D.O. Date of Service: 03/24/24 Procedure(s): ITP Accession Number(s): [id number] cc: [facility] Test Date: 2024-03-24 Pat Name: ALEX GRAJEDA Department: Room: - Gender: Male Telecommunications Repairer: : 1945 Requested By: ARNOL GARNICA Order Number: [id number] Silverio CASILLAS: ARNOL GARNICA Interpretive Statements Session Date: Electronically Signed On 03-24-2024 23:29:20 EDT by ARNOL GARNICA Dictated By: Arnol Garnica D.O. Signed By:03/24/24232803/24/242328 DD/ 114 TD/TT: Pipe Line Repairer: us Generic External Data Provider [facility] Final Result documented in this encounter Visit Diagnoses Not on filedocumented in this encounter Additional Health Concerns Assessment Noted Time PHQ-9 Depression Total Score: 3 05/12/20 23 1:00 PM EST A fall risk assessment has been complete d for the patient 12/31/2023 8:54 AM EDT documented as of this encounter Care Teams Health Program Specialist Relationship Specialty Start Date End Date Stanley Toledo MD [address] [place] [address] PCP - ACO Reach 10/17/22 Stanley Toledo MD [address] [place] [address] PCP - General Family Medicine 11/20/22 Dora Santiago LPN [address] [place] [address] Licensed Practical Nurse Family Medicine 12/22/23 Joi Zhang LPN [address] [place] [address] 08/26/24 documented as of this encounter
--- OUTSIDE RECORDS SUMMARY | 2024-12-23 13:17 | XMS_ITS | Encounter Summary ---
Author Organization [facility] Address [address] [place] [address] Care Team Providers Care Regulatory Law Specialist Name Role Phone Stanley Toledo MD Unavailable [phone] Stanley Toledo MD Primary Care Provider [phone] Dora Santiago APPELLATE LAW CLERK Unavailable Christina Goddard APPELLATE LAW CLERK Unavailable Unavailable Joi Zhang APPELLATE LAW CLERK Unavailable Encounter Details Date Type Department Care Team (Late Contact Info) Description 04/14/2023 Abstract [facility] [address] [place] [address] Robe Pryor MD [address] [place] [address] Social History Tobacco Use Types Packs/Day Years [...] Visit [facility] [address] [address] Stanley Toledo MD [address] [address] (Fax) documented as of this encounter Visit Diagnoses Not on filedocumented in this encounter Care Teams Regulatory Law Specialist Relationship Specialty Start Date End Date Stanley Toledo MD [address] [place] [address] PCP - ACO Reach 10/17/22 Stanley Toledo MD [address] [place] [address] PCP - General Family Medicine 11/20/22 Dora Santiago LPN [address] [place] [address] Licensed Practical Nurse Family Medicine 12/22/23 Christina Goddard LPN Licensed Practical Nurse Family Medicine 12/25/23 Joi Zhang LPN [address] [place] [address] 08/26/24 documented as of this encounter
--- OUTSIDE RECORDS SUMMARY | 2024-12-23 13:17 | XMS_ITS | Encounter Summary ---
Author Organization [facility] Address [address] [place] [address] Care Team Providers Care Greens Or Grounds Superintendent Name Role Phone Stanley Toledo MD Unavailable [phone] Stanley Toledo MD Primary Care Provider + [phone] Dora Santiago ELECTROSTATIC POWDER COATING TECHNICIAN Unavailable Christina Goddard ELECTROSTATIC POWDER COATING TECHNICIAN Unavailable Unavailable Joi Zhang ELECTROSTATIC POWDER COATING TECHNICIAN Unavailable Encounter Details Date Type Department Care Team (Late Contact Info) Description 12/17/2022 Abstract [facility] Family Medicine [address] [place] [address] Stanley Toledo MD [address] [address] Social History Tobacco Use Types Packs/Day Years [...] Upcoming Encounters Date Type Department Care Team ([facility] Contact Info) Description 05/10/2025 2:00 PM EST Office Visit [facility] Family Medicine [address] [address] Stanley Toledo MD 112 [facility] 100 [place] [address] documented as of this encounter Visit Diagnoses Not on filedocumented in this encounter Care Teams Greens Or Grounds Superintendent Relationship Specialty Start Date End Date Stanley Toledo MD [address] [place] [address] (Fax) PCP - ACO Reach 10/17/22 Stanley Toledo MD [address] [place] [address] PCP - General Family Medicine 11/20/22 Dora Santiago LPN [address] [place] [address] Licensed Practical Nurse Family Medicine 12/22/23 Christina Goddard LPN Licensed Practical Nurse Family Medicine 12/25/23 Joi Zhang LPN [address] [place] [address] 08/26/24 documented as of this encounter
--- OUTSIDE RECORDS SUMMARY | 2024-12-23 13:17 | XMS_ITS ---
Author Organization [facility] Address [address] [place] [address] Care Team Providers Care Target Developer Name Role Phone Stanley Toledo MD Unavailable [phone] Stanley Toledo MD Primary Care Provider + [phone] Joi Zhang LPN Unavailable Chronic Care Management (CCM) Status:Enrolled (Active) Start date:12/22/2023 Enrollment date:12/31/2023 Enrollment reason:Identified as high-risk Overview Please assess for Care Management needs. 12/31/23, 10:20 AM - Dora Santiago LPN- Patient gives verbal consent to be enrolled in CCM Program and understands there could be a bill for this service. Case Team Name Relationship Phone Joi Zhang LPN(Responsible Staff) [phone] Continued Care and Services Coordination
--- OUTSIDE RECORDS SUMMARY | 2024-12-23 13:17 | XMS_ITS | Encounter Summary ---
Author Organization [facility] Address [address] [place] [address] Care Team Providers Care Insurance Application Investigator Name Role Phone Stanley Toledo MD Unavailable [phone] Stanley Toledo MD Primary Care Provider [phone] Dora Santiago NON FERROUS MATERIAL HANDLER Unavailable Christina Goddard NON FERROUS MATERIAL HANDLER Unavailable Unavailable Joi Zhang NON FERROUS MATERIAL HANDLER Unavailable Encounter Details Date Type Department Care Team (Late Contact Info) Description 04/29/2023 Abstract [facility] Family Medicine [address] [place] [address] Stanley Toledo MD [address] [address] (Fax) Social History Tobacco Use Types Packs/Day [...] Visit [facility] [address] [address] Stanley Toledo MD [address] [address] (Fax) documented as of this encounter Visit Diagnoses Not on filedocumented in this encounter Care Teams Insurance Application Investigator Relationship Specialty Start Date End Date Stanley Toledo MD [address] [place] [address] PCP - ACO Reach 10/17/22 Stanley Toledo MD [address] [place] [address] PCP - General Family Medicine 11/20/22 Dora Santiago LPN [address] [place] [address] Licensed Practical Nurse Family Medicine 12/22/23 Christina Goddard LPN Licensed Practical Nurse Family Medicine 12/25/23 Joi Zhang LPN [address] [place] [address] 08/26/24 documented as of this encounter
--- OUTSIDE RECORDS SUMMARY | 2024-12-23 13:17 | XMS_ITS | Encounter Summary ---
Author Organization [facility] Address [address] [place] [address] Care Team Providers Care Clinical Unit Educator Name Role Phone Stanley Toledo MD Unavailable [phone] Stanley Toledo MD Primary Care Provider + [phone] Dora Santiago PARK ACTIVITIES COORDINATOR Unavailable Christina Goddard PARK ACTIVITIES COORDINATOR Unavailable Unavailable Joi Zhang PARK ACTIVITIES COORDINATOR Unavailable Encounter Details Date Type Department Care Team ([facility] Contact Info) Description 01/02/2023 Abstract [facility] Family Medicine [address] [place] [address] Stanley Toledo MD [address] [address] Social History Tobacco Use Types Packs/Day Years [...] Upcoming Encounters Date Type Department Care Team ([facility] Contact Info) Description 05/10/2025 2:00 PM EST Office Visit [facility] Family Medicine [address] [address] Stanley Toledo MD [address] [place] [address] (Fax) documented as of this encounter Visit Diagnoses Not on filedocumented in this encounter Care Teams Clinical Unit Educator Relationship Specialty Start Date End Date Stanley Toledo MD [address] [place] [address] (Fax) PCP - ACO Reach 10/17/22 Stanley Toledo MD [address] [place] [address] (Fax) PCP - General Family Medicine 11/20/22 Dora Santiago LPN [address] [place] [address] Licensed Practical Nurse Family Medicine 12/22/23 Christina Goddard LPN Licensed Practical Nurse Family Medicine 12/25/23 Joi Zhang LPN [address] [place] [address] 08/26/24 documented as of this encounter
--- OUTSIDE RECORDS SUMMARY | 2024-12-23 13:17 | XMS_ITS | Encounter Summary ---
Author Organization [facility] Address [address] [place] [address] Care Team Providers Care Park Ranger Name Role Phone Stanley Toledo MD Unavailable [phone] Stanley oTledo MD Primary Care Provider + [phone] Dora Santiago DENTAL TECHNICIAN INSTRUCTOR Unavailable Vicente Joi DENTAL TECHNICIAN INSTRUCTOR Unavailable Encounter Details Date Type Department Care [...] any clubs o r organizations such as oriental orthodox groups, unions, fraternal or athletic groups, or [...] Recorded Patient Health Questionnaire-2 Score 0 [facility] Answer Date [...] any time in the past 12 m [facility], were you homeless or living in a prison (including now)? No 12/31/2023 Sex and Gender [...] Visit [facility] 112 [facility] 100 [place] [address] Stanley Toledo MD 112 [facility] 100 [place] [address] documented as of this encounter Procedures Procedure Name Priority Date/Time Associated Diagnosis Comments ITP 04/26/2024 12:19 PM EST documented in this encounter Results * ITP (04/26/2024 12:19 PM EST) Anatomical Region Laterality Modality Other 04/26/2024 12:1 9 PM EST Narrative 04/27/2024 8:20 PM EST The [address] [address] Cardiac Rehab Report Signed Patient: ALEX GRAJEDA MR#: [id number] : 1945 Acct:[id number] Age/Sex: 78 / M ADM Date: 04/26/24 Loc: CR Attending Dr: MAGDY AL Ordering Physician: Arnol Garnica D.O. Date of Service: 04/26/24 Procedure(s): ITP Accession Number(s): [id number] cc: [facility] Test Date: 2024-04-26 Pat Name: ALEX GRAJEDA Department: Room: - Gender: Male Content Assistant: : 1945 Requested By: ARNOL GARNICA Order Number: [id number] Silverio MD: ARNOL GARNICA Interpretive Statements Session Date: Electronically Signed On 04-27-2024 20:20:06 EST by ARNOL GARNICA Dictated By: Arnol Garnica D.O. Signed By: 04/27/24201904/27/242019 DD/ 18 TD/TT: [employer] Associate: Procedure Note Radiology, Radiologist, MD - 04/27/2024 [place] [address] Cardiac Rehab Report Signed Patient: ALEX GRAJEDA HMR#: [id number] : 1945cct:[id number] Age/Sex: 78 / MADM Date: 04/26/24 Loc: CR Attending Dr: MAGDY AL Ordering Physician: Arnol Garnica D.O. Date of Service: 04/26/24 Procedure(s): ITP Accession Number(s): [id number] cc: [facility] Test Date: 2024-04-26 Pat Name: ALEX GRAJEDA Department: Room: - Gender: Male Content Assistant: : 1945 Requested By: ARNOL GARNICA Order Number: [id number] Silverio MD: ARNOL GARNICA Interpretive Statements Session Date: Electronically Signed On 04-27-2024 20:20:06 EST by ARNOL GARNICA Dictated By: Arnol Garnica D.O. Signed By:04/27/24201904/27/242019 DD/ 18 TD/TT: [employer] Associate: us Generic External Data Provider [facility] Final Result documented in this encounter Visit Diagnoses Not on filedocumented in this encounter Additional Health Concerns Assessment Noted Time PHQ-9 Depression Total Score: 3 05/12/20 23 1:00 PM EST A fall risk assessment has been complete d for the patient 12/31/2023 8:54 AM EDT documented as of this encounter Care Teams Park Ranger Relationship Specialty Start Date End Date Stanley Toledo MD [address] [place] [address] PCP - ACO Reach 10/17/22 Stanley Toledo MD [address] [place] [address] PCP - General Family Medicine 11/20/22 Dora Santiago LPN [address] [place] [address] Licensed Practical Nurse Family Medicine 12/22/23 Joi Zhang LPN [address] [place] [address] 08/26/24 documented as of this encounter
--- OUTSIDE RECORDS SUMMARY | 2024-12-23 13:17 | XMS_ITS | Encounter Summary ---
Author Organization [facility] Address [address] [place] [address] Care Team Providers Care Supervisor Lace Tearing Name Role Phone Stanley Toledo MD Unavailable [phone] Stanley Toledo MD Primary Care Provider + [phone] Doar Santiago DEVIL TENDER Unavailable Vicente Joi DEVIL TENDER Unavailable Encounter Details Date Type Department Care [...] often do you attend chur ch or religion services? Never 12/31/2023 Do you belong to any clubs o r organizations such as bahai groups, unions, fraternal or athletic groups, or [...] Recorded Patient Health Questionnaire-2 Score 0 05/13/2024 [facility] Answer Date [...] in the past 12 m [facility], were you homeless or living in [...] Visit [facility] 112 [facility] 100 [place] [address] Stanley Toledo MD 112 [facility] 100 [place] [address] documented as of this encounter Procedures Procedure Name Priority Date/Time Associated Diagnosis Comments ITP 05/25/2024 7:54 AM EST documented in this encounter Results * ITP (05/25/2024 7:54 AM EST) Anatomical Region Laterality Modality Other 05/25/2024 7:54 AM EST Narrative 05/26/2024 8:06 AM EST The [address] [address] Cardiac Rehab Report Signed Patient: ALEX GRAJEDA MR#: [id number] : 1945 Acct:[id number] Age/Sex: 78 / M ADM Date: 05/25/24 Loc: CR Attending Dr: MAGDY AL Ordering Physician: Arnol Garnica D.O. Date of Service: 05/25/24 Procedure(s): ITP Accession Number(s): [id number] cc: [facility] Test Date: 2024-05-25 Pat Name: ALEX GRAJEDA Department: Room: - Gender: Male Work Order Clerk: : 1945 Requested By: ARNOL GARNICA Order Number: [id number] Silverio MD: ARNOL GARNICA Interpretive Statements Session Date: Electronically Signed On 05-26-2024 8:06:21 EST by ARNOL GARNICA Dictated By: Arnol Garnica D.O. Signed By: 05/26/24 0805/26/24805 DD/ 075 TD/TT: Solution Specialist: Procedure Note Radiology, Radiologist, MD - 05/26/2024 [place] [address] Cardiac Rehab Report Signed Patient: ALEX GRAJEDA HMR#: [id number] : 1945cct:[id number] Age/Sex: 78 / MADM Date: 05/25/24 Loc: CR Attending Dr: MAGDY AL Ordering Physician: Arnol Garnica D.O. Date of Service: 05/25/24 Procedure(s): ITP Accession Number(s): [id number] cc: [facility] Test Date: 2024-05-25 Pat Name: ALEX GRAJEDA Department: Room: - Gender: Male Work Order Clerk: : 1945 Requested By: ARNOL GARNICA Order Number: [id number] Silverio MD: ARNOL GARNICA Interpretive Statements Session Date: Electronically Signed On 05-26-2024 8:06:21 EST by ARNOL GARNICA Dictated By: Arnol Garnica D.O. Signed By:05/26/24 0805/26/24805 DD/ 075 TD/TT: Solution Specialist: us Generic External Data Provider [facility] Final Result documented in this encounter Visit Diagnoses Not on filedocumented in this encounter Additional Health Concerns Assessment Noted Time PHQ-9 Depression Total Score: 3 05/13/20 24 2:00 PM EST A fall risk assessment has been complete d for the patient 12/31/2023 8:54 AM EDT documented as of this encounter Care Teams Supervisor Lace Tearing Relationship Specialty Start Date End Date Stanley Toledo MD [address] [place] [address] PCP - ACO Reach 10/17/22 Stanley Toledo MD [address] [place] [address] PCP - General Family Medicine 11/20/22 Dora Santiago LPN [address] [place] [address] Licensed Practical Nurse Family Medicine 12/22/23 Joi Zhang LPN [address] [place] [address] 08/26/24 documented as of this encounter
--- OUTSIDE RECORDS SUMMARY | 2024-12-23 13:17 | XMS_ITS | Clinical Summary ---
Author Organization [facility] Address [address] [place] [address] Care Team Providers Care Securities Dealer Name Role Phone Stanley Toledo MD Primary [...] Vaccine (1 - 1-dose 75+ series) 11/30/2018 Advance Directive Discussion 05/26/2024 Influenza Vaccine (#1) 2025 Insurance MEDICARE Care Teams Securities Dealer Relationship Specialty Start Date End Date Stanley Toledo MD [address] [place] [address] PCP - General Family Medicine 01/21/24
--- OUTSIDE RECORDS SUMMARY | 2024-12-23 13:17 | XMS_ITS | Encounter Summary ---
Author Organization [facility] Address [address] [place] [address] Care Team Providers Care Lockstitch Front Maker Name Role Phone Stanley Toledo MD Unavailable [phone] Stanley Toledo MD Primary Care Provider [phone] Dora Santiago CHARTER SCHOOL EXECUTIVE DIRECTOR Unavailable Christina Goddard CHARTER SCHOOL EXECUTIVE DIRECTOR Unavailable Unavailable Joi Zhang CHARTER SCHOOL EXECUTIVE DIRECTOR Unavailable Encounter Details Date Type Department Care Team (Late Contact Info) Description 12/09/2022 Abstract [facility] Family Medicine [address] [place] [address] Stanley Toledo MD [address] [address] (Fax) Social History Tobacco Use Types Packs/Day [...] Visit [facility] 100 Family Medicine [address] [address] Stanley Toledo MD [address] [address] (Fax) documented as of this encounter Visit Diagnoses Not on filedocumented in this encounter Care Teams Lockstitch Front Maker Relationship Specialty Start Date End Date Stanley Toledo MD [address] [place] [address] PCP - ACO Reach 10/17/22 Stanley Toledo MD [address] [place] [address] PCP - General Family Medicine 11/20/22 Dora Santiago LPN [address] [place] [address] Licensed Practical Nurse Family Medicine 12/22/23 Christina Goddard LPN Licensed Practical Nurse Family Medicine 12/25/23 Joi Zhang LPN [address] [place] [address] 08/26/24 documented as of this encounter
--- OUTSIDE RECORDS SUMMARY | 2024-12-23 13:17 | XMS_ITS | Encounter Summary ---
Author Organization [facility] Address [address] [place] [address] Care Team Providers Care Tool Sharpener Name Role Phone Stanley Toledo MD Unavailable [phone] Stanley Toledo MD Primary Care Provider + [phone] Dora Santiago SHEEP FARMER Unavailable Christina Goddard SHEEP FARMER Unavailable Unavailable Joi Zhang SHEEP FARMER Unavailable Encounter Details Date Type Department Care Team (Late Contact Info) Description 12/17/2022 Abstract [facility] Family Medicine [address] [place] [address] Stanley Toledo MD [address] [address] Social History Tobacco Use Types Packs/Day Years [...] Visit [facility] 100 Family Medicine [address] [address] Stanley Toledo MD 112 [facility] 100 [place] [address] documented as of this encounter Visit Diagnoses Not on filedocumented in this encounter Care Teams Tool Sharpener Relationship Specialty Start Date End Date Stanley Toledo MD [address] [place] [address] (Fax) PCP - ACO Reach 10/17/22 Stanley Toledo MD [address] [place] [address] PCP - General Family Medicine 11/20/22 Dora Santiago LPN [address] [place] [address] Licensed Practical Nurse Family Medicine 12/22/23 Christina Goddard LPN Licensed Practical Nurse Family Medicine 12/25/23 Joi Zhang LPN [address] [place] [address] 08/26/24 documented as of this encounter
--- OUTSIDE RECORDS SUMMARY | 2024-12-23 13:17 | XMS_ITS | Encounter Summary ---
Author Organization [facility] Address [address] [place] [address] Care Team Providers Care Hammer Mill Operator Name Role Phone Stanley Toledo MD Unavailable [phone] Stanley Toledo MD Primary Care Provider + [phone] Dora Santiago BUS STEWARD Unavailable Christina Goddard BUS STEWARD Unavailable Unavailable Joi Zhang BUS STEWARD Unavailable Encounter Details Date Type Department Care Team (Late Contact Info) Description 06/11/2023 Abstract [facility] Family Medicine [address] [place] [address] Stanley Toledo MD [address] [address] (Fax) Social History Tobacco Use Types Packs/Day [...] Visit [facility] Family Medicine [address] [address] Stanley Toledo MD [address] [address] (Fax) documented as of this encounter Visit Diagnoses Not on filedocumented in this encounter Additional Health Concerns Assessment Noted Time PHQ-9 Depression Total Score: 3 05/12/20 23 1:00 PM EST documented as of this encounter Care Teams Hammer Mill Operator Relationship Specialty Start Date End Date Stanley Toledo MD [address] [place] [address] (Fax) PCP - ACO Reach 10/17/22 Stanley Toledo MD [address] [place] [address] PCP - General Family Medicine 11/20/22 Dora Santiago LPN [address] [place] [address] Licensed Practical Nurse Family Medicine 12/22/23 Christina Goddard LPN Licensed Practical Nurse Family Medicine 12/25/23 Joi Zhang LPN [address] [place] [address] 08/26/24 documented as of this encounter
--- OUTSIDE RECORDS SUMMARY | 2024-12-23 13:17 | XMS_ITS | Encounter Summary ---
Author Organization [facility] Address [address] [place] [address] Care Team Providers Care Regional Facilities Specialist Name Role Phone Stanley Toledo MD Unavailable [phone] Stanley Toledo MD Primary Care Provider + [phone] Dora Santiago TILE LAYER SUPERVISOR Unavailable Christina Goddard TILE LAYER SUPERVISOR Unavailable Unavailable Joi Zhang TILE LAYER SUPERVISOR Unavailable Encounter Details Date Type Department Care Team (Late Contact Info) Description 07/01/2023 Abstract [facility] Family Medicine [address] [place] [address] Stanley Toledo MD [address] [address] (Fax) Social History Tobacco Use Types Packs/Day [...] Visit [facility] Family Medicine [address] [address] Stanley Toledo MD [address] [address] (Fax) documented as of this encounter Visit Diagnoses Not on filedocumented in this encounter Additional Health Concerns Assessment Noted Time PHQ-9 Depression Total Score: 3 05/12/20 23 1:00 PM EST documented as of this encounter Care Teams Regional Facilities Specialist Relationship Specialty Start Date End Date Stanley Toledo MD [address] [place] [address] (Fax) PCP - ACO Reach 10/17/22 Stanley Toledo MD [address] [place] [address] PCP - General Family Medicine 11/20/22 Dora Santiago LPN [address] [place] [address] Licensed Practical Nurse Family Medicine 12/22/23 Christina Goddard LPN Licensed Practical Nurse Family Medicine 12/25/23 Joi Zhang LPN [address] [place] [address] 08/26/24 documented as of this encounter
--- OUTSIDE RECORDS SUMMARY | 2024-12-23 13:17 | XMS_ITS | Clinical Summary ---
Author Organization [facility] Address [address], [address] [place] [address] Care Team Providers Care Resource Manager Forester Name Role Phone Stanley Toledo MD Primary [...] 60 tablet 5 Active albuterol sulfate HFA (PROVENTIL;VENT TOBI;PROAIR) 108 (90 Base) MCG/ACT inhaler Inhale 2 puffs into the lungs every 6 hours as needed for Wheezing or Shortness of Breath 18 g Active Active Problems Problem Noted Date Diagnosed [...] - 10/06/2024 11:59 PM EDT Hospital Encounter [facility] Vascular Lab [address] [place] [address] Julio Cesar Gaspar MD Grewal, Prabhsharn S, MD Discharge Disposition: Home or Self Care 10/02/2024 10:30 AM EDT - 10/05/2024 2:21 PM EDT Hospital Encounter [facility] Med Surg [address] [place] [address] Julio Cesar Gaspar MD Grewal, Prabhsharn S, MD Lower extremity edema (Primary Dx); Delirium due to another medical condition; Cognitive and behavioral changes Discharge Disposition: Home Health Care Svc 10/02/2024 Travel from Last 3 Months Social History Tobacco Use Types Packs/Day Years Used Date Smoking Tobacco: Former Cigarettes Tobacco Cessation:Counseling Given: Not Answered [facility] Utilities Answer Date Recorded In the past 12 months has th e [employer], gas, oil, or water [employer] threatened to shut off services in your [...] any time in the past 12 m [facility], were you homeless or living in a senior care (including now)? Patient unable to answer 10/02/2024 [...] vaccine (1 of 2) 11/30/1993 COVID-19 Vaccine ( season) 2024 03/19/2024, 02/16/2023, 03/29/2022, Additional history exists Annual Wellness Visit (Medicare) 10/02/2024 Flu vaccine (#1) 12/24/2024 03/19/2024, 05/2022, 05/20/2022, Additional history exists Pneumococcal 50+ years Vaccine Completed 05/28/2023, 04/23/2021 Respiratory Syncytial Virus (RSV) or age 60 [...] 136 - 145 mmol/L 10/05/2024 6:08 AM EDT [facility] Potassium 3.3(L) 3.7 - 5.3 mmol/L 10/05/2024 6:08 AM EDT [facility] Chloride 105 98 - 107 mmol/L 10/05/2024 6:08 AM EDT [facility] CO2 27 20 - 31 mmol/L 10/05/2024 6:08 AM EDT [facility] Anion Gap 9 9 - 16 mmol/L 10/05/2024 6:08 AM EDT [facility] Glucose 97 74 - 99 mg/dL 10/05/2024 6:08 AM EDT [facility] BUN 24(H) 8 - 23 mg/dL 10/05/2024 6:08 AM EDT [facility] Creatinine 1.9(H) 0.7 - 1.2 mg/dL 10/05/2024 6:08 AM EDT [facility] Est, Glom Filt Rate 35(L) >60 mL/min/1.7 3m2 10/05/2024 6:08 AM EDT [facility] Comment: These results are not [...] 8.6 - 10.4 mg/dL 10/05/2024 6:08 AM EDT [facility] Blood BLOOD SPECIMEN / Unknown 10/05/2024 6:08 AM EDT 10/05/2024 6:09 AM EDT us Gwendolyn Pink MD CHEMISTRY ORDERABLES Final Resul t [facility] [address] [phone] * (ABNORMAL) CBC with Auto Differential (10/05/2024 6:08 AM EDT) Only the most recent of4 resultswithin the time period is included. WBC 5.1 3.5 - 11.0 k/uL 10/05/2024 6:08 AM [facility] RBC 4.65 4.5 - 5.9 m/uL 10/05/2024 6:08 AM [facility] Hemoglobin 11.5(L) 13.5 - 17.5 g/dL 10/05/2024 6:08 AM [facility] Hematocrit 35.3(L) 41 - 53 % 10/05/2024 6:08 AM [facility] MCV 75.8(L) 80 - 100 fL 10/05/2024 6:08 AM [facility] MCH 24.8(L) 26 - 34 pg 10/05/2024 6:08 AM [facility] MCHC 32.7 31 - 37 g/dL 10/05/2024 6:08 AM [facility] RDW 21.2(H) 11.5 - 14.9 % 10/05/2024 6:08 AM [facility] Platelets 173 150 - 450 k/uL 10/05/2024 6:08 AM [facility] MPV 8.1 6.0 - 12.0 fL 10/05/2024 6:08 AM [facility] Neutrophils % 58 36 - 66 % 10/05/2024 6:08 AM [facility] Lymphocytes % 30 24 - 44 % 10/05/2024 6:08 AM [facility] Monocytes % 7 1 - 7 % 10/05/2024 6:08 AM [facility] Eosinophils % 4 0 - 4 % 10/05/2024 6:08 AM [facility] Basophils % 1 0 - 2 % 10/05/2024 6:08 AM [facility] Immature Granulocytes % 0 0 % 10/05/2024 6:08 AM [facility] Neutrophils Absolute 2.96 1.3 - 9.1 k/uL 10/05/2024 6:08 AM EDT [facility] Lymphocytes Absolute 1.53 1.0 - 4.8 k/uL 10/05/2024 6:08 AM EDT [facility] Monocytes Absolute 0.36 0.1 - 1.3 k/uL 10/05/2024 6:08 AM EDT [facility] Eosinophils Absolute 0.20 0.0 - 0.4 k/uL 10/05/2024 6:08 AM EDT [facility] Basophils Absolute 0.05 0.0 - 0.2 k/uL 10/05/2024 6:08 AM EDT [facility] Immature Granulocytes Absolute 0.00 0.00 - 0.30 k/uL 10/05/2024 6:08 AM EDT [facility] Morphology ANISOCYTOSIS PRESENT 10/05/2024 6:08 AM EDT [facility] Morphology HYPOCHROMIA PRESENT 10/05/2024 6:08 AM EDT [facility] Morphology FEW ELLIPTOCYTES 10/05/2024 6:08 AM EDT [facility] Blood BLOOD SPECIMEN / Unknown 10/05/2024 6:08 AM EDT 10/05/2024 6:09 AM EDT us Gwendolyn Pink MD HEMATOLOGY ORDERABLES Final Resu lt [facility] [address] [phone] * Iron and TIBC (10/05/2024 6:08 AM EDT) Only the most recent of2 resultswithin the time period is included. Iron 103 61 - 157 ug/dL 10/05/2024 6:08 AM EDT [facility] TIBC 250 250 - 450 ug/dL 10/05/2024 6:08 AM EDT [facility] Iron % Saturation 41 20 - 55 % 10/05/2024 6:[address] [facility] UIBC 147 112 - 347 ug/dL 10/05/2024 6:[address] [facility] Blood BLOOD SPECIMEN / Unknown 10/05/2024 6:08 AM EDT 10/05/2024 6:09 AM EDT Gwendolyn Pink MD CHEMISTRY ORDERABLES Final Resul t Performing Organization Address City/[facility] Co de Phone Number [facility] [address] [place] [address], [facility] [phone] [address], [facility] [phone] * (ABNORMAL) Protime-INR (10/05/2024 6:08 AM EDT) Only the most recent of4 resultswithin the time period is included. Protime 24.9(H) 11.8 - 14.6 sec 10/05/2024 6:08 AM EDT [facility] INR 2.0 10/05/2024 6:08 AM EDT [facility] Comment: Therapeutic Range: Moderate Anticoagulant Intensity: INR = 2.0-3.0 High Anticoagulant Intensity: INR = 2.5-3.5 Blood BLOOD SPECIMEN / Unknown 10/05/2024 6:08 AM EDT 10/05/2024 6:09 AM EDT Gwendolyn Pink MD HEMATOLOGY ORDERABLES Final Resu lt Performing Organization Address City/[facility]/ZIP Co de Phone Number [facility] [address] [place] [address], [facility] [phone] * Magnesium (10/05/2024 6:08 AM EDT) Only the most recent of2 resultswithin the time period is included. Magnesium 2.3 1.6 - 2.4 mg/dL 10/05/2024 6:08 AM EDT [facility] 10/05/2024 6:08 AM EDT 10/05/2024 6:09 AM EDT us Gwendolyn Pink MD CHEMISTRY ORDERABLES Final Resul t [facility] [address] [address], [facility] [phone] * EKG 12 Lead (10/04/2024 3:45 PM EDT) Ventricular Rate 73 BPM [facility] Atrial Rate 73 BPM [facility] P-R Interval 214 ms [facility] QRS Duration 118 ms [facility] Q-T Interval 428 ms [facility] QTc Calculation (Bazett) 471 ms [facility] P [place] 95 degrees [facility] R [place] -16 degrees [facility] T [place] 109 degrees [facility] MUSE 10/04/2024 3:45 PM EDT Narrative [facility] - 10/05/2024 7:57 AM EDT [...] Gwendolyn Pink MD ECG ORDERABLES Final Result [facility] * Vascular duplex lower extremity venous bilateral (10/04/2024 10:35 AM EDT) Body Surface Area 2.04 m2 BS CV CPACS Anatomical Region Laterality Modality Vascular [...] 1.293 cm.Color flow seen in residual lumen. Physicist Solid State Details A pollard scale, color Doppler imaging and spectral Doppler analysis ultrasound was performed. During the study longitudinal and transverse views were obtained. Study was technically difficult due to: bedside exam, patient positioning and edema. us Quincy Plata MD CV VASCULAR ORDERABLES Final Re sult * Blood Occult Stool Screen #1 (10/04/2024 8:36 AM EDT) Occult Blood, Stool #1 NEGATIVE NEGATIVE 10/04/2024 8:36 AM EDT [facility] Date, Stool #1 [id number] 10/04/2024 8:36 AM EDT [facility] Time, Stool #1 [id number] 10/04/2024 8:36 AM EDT [facility] STOOL SPECIMEN / Unknown 10/04/2024 8:36 AM EDT 10/04/2024 8:46 AM EDT Gwendolyn Pink MD BODY FLUIDS AND STOOLS ORDERABLE S Final Result Performing Organization Address [facility]/ZIP Co de Phone Number [facility] [address] [place] [address]. [place] [address], [facility] [phone] * (ABNORMAL) Vitamin B12 & Folate (10/03/2024 6:23 AM EDT) Vitamin B-12 377 232 - 1245 pg/mL 10/03/2024 6:[address] [facility] Folate 28.5(H) 4.8 - 24.2 ng/mL 10/03/2024 6:[address] [facility] 10/03/2024 6:23 AM EDT 10/03/2024 6:24 AM EDT Gwendolyn Pink MD CHEMISTRY ORDERABLES Final Resul t Performing Organization Address [facility]/ZIP Co de Phone Number [facility] [address] [place] [address]. [place] [address], [facility] [phone] [facility] [address] [place] [address], [facility] [phone] * (ABNORMAL) Reticulocytes (10/03/2024 6:23 AM EDT) Retic Ct Pct 0.9 0.5 - 2.5 % 10/03/2024 6:23 AM EDT [facility] Absolute Retic # 0.038 0.030 - 0.080 M/uL 10/03/2024 6:23 AM EDT [facility] Immature Retic Fract 11.9 2.7 - 18.3 % 10/03/2024 6:23 AM EDT [facility] Retic Hemoglobin 23.4(L) 28.2 - 35.7 pg 10/03/2024 6:23 AM EDT [facility] 10/03/2024 6:23 AM EDT 10/03/2024 6:24 AM EDT us Gwendolyn Pink MD HEMATOLOGY ORDERABLES Final Resu lt [facility] [address] [facility] [place] [address], [facility] [phone] * (ABNORMAL) Lactate Dehydrogenase (10/03/2024 6:23 AM EDT) LD 132(L) 135 - 225 U/L 10/03/2024 6:23 AM EDT [facility] 10/03/2024 6:23 AM EDT 10/03/2024 6:24 AM EDT us Gwendolyn Pink MD CHEMISTRY ORDERABLES Final Resul t Performing Organization Address City/[facility]/ZIP Co de Phone Number [facility] [address] [place] [address]. [place] [address], [facility] [phone] * (ABNORMAL) Haptoglobin (10/03/2024 6:23 AM EDT) Haptoglobin 244(H) 30 - 200 mg/dL 10/03/2024 6:23 AM EDT [facility] 10/03/2024 6:23 AM EDT 10/03/2024 6:24 AM EDT us Gwendolyn Pink MD CHEMISTRY ORDERABLES Final Resul t Performing Organization Address City/[facility]/ZIP Co de Phone Number [facility] [address] [place] [address]. [place] [address], [facility] [phone] [facility] [address] [address], [facility] [phone] * Ferritin (10/03/2024 6:23 AM EDT) Ferritin 54 ng/mL 10/03/2024 6:[address] [facility] Comment:No reference range e stablished for this age/gender. 10/03/2024 6:23 AM EDT 10/03/2024 6:24 AM EDT Gwendolyn Pnik MD CHEMISTRY ORDERABLES Final Resul t Performing Organization Address [facility] Co de Phone Number [facility] [address] [facility] [place] [address], [facility] [phone] [address], [facility] [phone] * LEGIONELLA ANTIGEN, URINE (10/02/2024 3:45 PM EDT) [facility] Legionella Pneumophilia Ag, Urine NEGATIVE NEGATIVE 10/02/2024 3:45 PM EDT [facility] Comment: L. pneumophila serogroup 1 antigen not detected. A negative result does not exclude infection with Leginella pnemophila serogroup 1 nor does it rule out other microbial-caused respiratory infections of disease caused by other serogroups of Legionella pneumophila. Urine (Urine) 10/02/2024 3:4 5 PM EDT 10/02/2024 3:45 PM EDT Gwendolyn Pink MD MICROBIOLOGY - GENERAL ORDERABLE S Final Result Performing Organization Address [facility] Co de Phone Number [facility] [address] [place] [address]. [place] [address], [facility] [phone] [address], [facility] [phone] * (ABNORMAL) Urinalysis with Microscopic (10/02/2024 3:43 PM EDT) Color, UA Yellow Yellow 10/02/2024 3:43 PM EDT [facility] Turbidity UA Clear Clear 10/02/2024 3:43 PM EDT [facility] Glucose, Ur NEGATIVE NEGATIVE mg/dL 10/02/2024 3:43 PM EDT [facility] Bilirubin, Urine NEGATIVE NEGATIVE 10/02/2024 3:43 PM EDT [facility] Ketones, Urine NEGATIVE NEGATIVE mg/dL 10/02/2024 3:43 PM EDT [facility] Specific [place], UA 1.017 1.000 - 1.030 10/02/2024 3:43 PM EDT [facility] Urine Hgb TRACE(A) NEGATIVE 10/02/2024 3:43 PM EDT [facility] pH, Urine 6.0 5.0 - 8.0 10/02/2024 3:43 PM EDT [facility] Protein, UA 1+(A) NEGATIVE mg/dL 10/02/2024 3:43 PM T [facility] Urobilinogen, Urine Normal 0.0 - 1.0 EU/dL 10/02/2024 3:43 PM T [facility] Nitrite, Urine POSITIVE(A) NEGATIVE 3:43 PM T [facility] Leukocyte Esterase, Urine MOD(A) NEGATIVE 10/02/2024 3:43 PM EDT [facility] WBC, UA 51 TO 100(A) 0 TO 5 /HPF 10/02/2024 3:43 PM T [facility] RBC, UA 6 TO 9(A) 0 TO 2 /HPF 10/02/2024 3:43 PM T [facility] Casts UA 6 TO 9(A) None /LPF 10/02/2024 3:43 PM EDT [facility] Epithelial Cells, UA 0 TO 2 /HPF 10/02/2024 3:43 PM EDT [facility] Bacteria, UA FEW(A) None 10/02/2024 3:43 PM [facility] Urine URINE SPECIMEN / Unknown 10/02/2024 3:43 PM EDT 10/02/2024 3:46 PM EDT Gwendolyn Pink MD URINE ORDERABLES Final Result Performing Organization Address [facility]/ZIP Co de Phone Number [facility] [address] [facility] [place] [address], [facility] [phone] * (ABNORMAL) Culture, Urine (10/02/2024 3:43 PM EDT) Specimen Description .CLEAN CATCH URINE 10/02/2024 3:43 PM EDT [facility] Special Requests Site: Urine 10/02/2024 3:43 PM EDT [facility] Culture ENTEROBACTER CLOACAE COMPLEX >100,000 CFU/ML(A) 10/02/2024 3:43 PM EDT [facility] Urine URINE SPECIMEN / Unknown 10/02/2024 3:43 [...] cefTRIAXone BACTERIAL SUSCEPTIBILITY PANEL ROGERS CARRENO Sensitive Gwendolyn Pink MD MICROBIOLOGY - GENERAL ORDERABLE S Final Result Performing Organization Address [facility]/ZIP Co de Phone Number [facility] [address] [facility] [place] [address], [facility] [phone] [facility] [address] [place] [address] * (ABNORMAL) Respiratory Panel, Molecular, with COVID-19 (Restricted: peds pts or suitable admitted adults) (10/02/2024 12:52 PM EDT) Specimen Description .NASOPHARYN GEAL SWAB 10/02/2024 12:52 PM EDT [facility] Adenovirus PCR Not Detected Not Detected 10/02/2024 12:[address] [facility] Coronavirus 229E PCR Not Detected Not Detected 10/02/2024 12:[address] [facility] Coronavirus HKU1 PCR Not Detected Not Detected 10/02/2024 12:[address] [facility] Coronavirus NL63 PCR Not Detected Not Detected 10/02/2024 12:[address] [facility] Coronavirus OC43 PCR Not Detected Not Detected 10/02/2024 12:[address] [facility] SARS-CoV-2, PCR Not Detected Not Detected 10/02/2024 12:[address] [facility] Human Metapneumovirus PCR DETECTED(A) Not Detected 10/02/2024 12:[facility] Rhino/Enterovirus PCR Not Detected Not Detected 10/02/2024 12:52 [facility] Influenza A by PCR Not Detected Not Detected 10/02/2024 12:52 [facility] Influenza B by PCR Not Detected Not Detected 10/02/2024 12:52 PM [facility] Parainfluenza 1 PCR Not Detected Not Detected 10/02/2024 12:52 PM [facility] Parainfluenza 2 PCR Not Detected Not Detected 10/02/2024 12:52 PM [facility] Parainfluenza 3 PCR Not Detected Not Detected 10/02/2024 12:52 PM [facility] Parainfluenza 4 PCR Not Detected Not Detected 10/02/2024 12:52 PM [facility] Resp Syncytial Virus PCR Not Detected Not Detected 10/02/2024 12:52 PM [facility] Bordetella parapertussis by PCR Not Detected Not Detected 10/02/2024 12:52 PM EDT [facility] B Pertussis by PCR Not Detected Not Detected 10/02/2024 12:[address] [facility] Chlamydia pneumoniae By PCR Not Detected Not Detected 10/02/2024 12:52 PM [facility] Mycoplasma pneumo by PCR Not Detected Not Detected 10/02/2024 12:[address] [facility] Comment:Performed by [email or web address] nucleic acid assay. Nose NASOPHARYNGEAL SWAB / Unknown 10/02/2024 12:52 PM EDT 10/02/2024 1:21 PM EDT Gwendolyn Pink MD MICROBIOLOGY - GENERAL ORDERABLE S Final Result [facility] [address] [place] [address]. [place] [address], [facility] [phone] [address], [facility] [phone] * MRSA DNA Probe, Nasal (10/02/2024 12:52 PM EDT) Specimen Description .NASAL SWAB 10/02/2024 12:52 PM EDT [facility] MRSA, DNA, Nasal NEGATIVE NEGATIVE 10/03/19 12:52 PM EDT [facility] Comment: NEGATIVE: MRSA DNA not detected by [...] ORDERABLE S Final Result Performing Organization Address City/[facility]/ZIP Co de Phone Number [facility] [address] [place] [address]. [place] [address], [facility] [phone] [place] [address], [facility] [phone] * TSH reflex to FT4 (10/02/2024 11:39 AM EDT) TSH 1.29 0.27 - 4.20 uIU/mL 10/02/2024 11:39 AM EDT [facility] Blood BLOOD SPECIMEN / Unknown 10/02/2024 11:39 AM EDT 10/02/2024 11:40 AM EDT Gwendolyn Pink MD CHEMISTRY ORDERABLES Final Resul t Performing Organization Address City/[facility]/ZIP Co de Phone Number [facility] [address] [facility] [place] [address], [facility] [phone] * Procalcitonin (10/02/2024 11:39 AM EDT) Procalcitonin 0.08 0.00 - 0.09 ng/mL 10/02/2024 11:39 AM EDT [facility] Comment: Suspected Sepsis: <0.50 ng/mL [...] entered into the Change in Procalcitonin Calculator ([email or web address]-[email or web address]) to determine the patient's Mortality Risk Prognosis In healthy neonates, plasma Procalcitonin (PCT) concentrations increase gradually after , reaching peak values at about 24 hours of age then decrease to normal values below 0.5 ng/mL by 48-72 hours of age. Blood BLOOD SPECIMEN / Unknown 10/02/2024 11:39 AM EDT 10/02/2024 11:40 AM EDT Gwendolyn Pink MD CHEMISTRY ORDERABLES Final Resul t [facility] [address] [facility] [place] [address], [facility] [phone] * Mycoplasma Ab,IgM (10/02/2024 11:39 AM EDT) Mycoplasma pneumo IgM 0.11 <0.91 10/02/2024 11:39 AM EDT [facility] Comment: Reference Range: <=0.90 Negative 0.91-1.09 Equivocal >=1.10 Positive Blood BLOOD SPECIMEN / Unknown 10/02/2024 11:39 AM EDT 10/02/2024 11:40 AM EDT us Gwendolyn Pink MD IMMUNOLOGY ORDERABLES Final Resu lt [facility] [address] [place] [address], [facility] [phone] [facility] [address] [place] [address], [facility] [phone] * (ABNORMAL) Basic Metabolic Panel (10/02/2024 11:39 AM EDT) Sodium 141 136 - 145 mmol/L 10/02/2024 11:39 AM EDT [facility] Potassium 3.8 3.7 - 5.3 mmol/L 10/02/2024 11:39 AM EDT [facility] Chloride 106 98 - 107 mmol/L 10/02/2024 11:39 AM EDT [facility] CO2 24 20 - 31 mmol/L 10/02/2024 11:39 AM T [facility] Anion Gap 11 9 - 16 mmol/L 10/02/2024 11:39 AM EDT [facility] Glucose 105(H) 74 - 99 mg/dL 10/02/2024 11:39 AM EDT [facility] BUN 22 8 - 23 mg/dL 10/02/2024 11:39 AM EDT [facility] Creatinine 1.9(H) 0.7 - 1.2 mg/dL 10/02/2024 11:39 AM T [facility] Est, Glom Filt Rate 35(L) >60 mL/min/1.7 3m2 10/02/2024 11:39 AM EDT [facility] Comment: These results are not [...] - 10.4 mg/dL 10/02/2024 11:39 AM EDT [facility] 10/02/2024 11:3 9 AM EDT 10/02/2024 11:40 AM EDT us Gwendolyn Pink MD CHEMISTRY ORDERABLES Final Resul t [facility] [address] [place] [id number], [facility] [phone] from Last 3 Months Insurance MEDICARE [employer] MEDICARE SUPP MEDICARE [employer] MEDICARE SUPP MEDICARE [employer] MEDICARE SUPP Advance Directives Documents on File Type Date Recorded Patient General Neurologist Expl anation ACP-Advance Directive 10/06/2024 4:23 PM [...] Anderson Child Secondary Decision Maker Care Teams Resource Manager Forester Relationship Specialty Start Date End Date Stanley Toledo MD PCP - General 10/02/24
--- OUTSIDE RECORDS SUMMARY | 2024-12-23 13:17 | XMS_ITS | Encounter Summary ---
Author Organization [facility] Address [address] [place] [address] Care Team Providers Care Creel Cleaner Name Role Phone Stanley Toledo MD Unavailable [phone] Stanley Toledo MD Primary Care Provider [phone] Dora Santiago COLLAR WORKER Unavailable Christina Goddard COLLAR WORKER Unavailable Unavailable Joi Zhang COLLAR WORKER Unavailable Encounter Details Date Type Department Care Team (Late Contact Info) Description 01/02/2023 Orders Only [facility] 521 Family Medicine [address] [place] [address] Stanley Toledo MD 112 [facility] 100 [place] [address] Acute diffuse otitis externa of right ear [...] Visit [facility] 100 Family Medicine 112 [facility] 100 [place] [address] Stanley Toledo MD 112 [facility] 100 [place] [address] (Fax) documented as of this encounter Visit Diagnoses Diagnosis Acute diffuse otitis externa of right ear- Primary documented in this encounter Care Teams Creel Cleaner Relationship Specialty Start Date End Date Stanley Toledo MD 112 [facility] 100 [place] [address] (Fax) PCP - ACO Reach 10/17/22 Stanley Toledo MD 112 [facility] 100 [place] [address] (Fax) PCP - General Family Medicine 11/20/22 Dora Santiago LPN [address] [place] [address] Licensed Practical Nurse Family Medicine 12/22/23 Christina Goddard LPN Licensed Practical Nurse Family Medicine 12/25/23 Joi Zhang LPN 112 [facility] 110 [place] [address] 08/26/24 documented as of this encounter
--- OUTSIDE RECORDS SUMMARY | 2024-12-23 13:17 | XMS_ITS | Encounter Summary ---
Author Organization [facility] Address [address] [place] [address] Care Team Providers Care Utility Bill Complaints Investigator Name Role Phone Stanley Toledo MD Unavailable [phone] Stanley Toledo MD Primary Care Provider + [phone] Dora Santiago PACKAGE YARNS DRYING MACHINE OPERATOR Unavailable Christina Goddard PACKAGE YARNS DRYING MACHINE OPERATOR Unavailable Unavailable Joi Zhang PACKAGE YARNS DRYING MACHINE OPERATOR Unavailable Encounter Details Date Type Department Care Team (Late Contact Info) Description 12/24/2022 Abstract [facility] 521 Family Medicine [address] [place] [address] Stanley Toledo MD [address] [address] Social History Tobacco Use Types Packs/Day Years [...] Date Type Department Care Team ([facility] Contact Info) Description 05/10/2025 2:00 PM EST Office Visit [facility] 100 Family Medicine [address] [address] Stanley Toledo MD 112 [facility] 100 [place] [address] documented as of this encounter Visit Diagnoses Not on filedocumented in this encounter Care Teams Utility Bill Complaints Investigator Relationship Specialty Start Date End Date Stanley Toledo MD [address] [place] [address] (Fax) PCP - ACO Reach 10/17/22 Stanley Toledo MD [address] [place] [address] PCP - General Family Medicine 11/20/22 Dora Santiago LPN [address] [place] [address] Licensed Practical Nurse Family Medicine 12/22/23 Christina Goddard LPN Licensed Practical Nurse Family Medicine 12/25/23 Joi Zhang LPN [address] [place] [address] 08/26/24 documented as of this encounter
--- OUTSIDE RECORDS SUMMARY | 2024-12-23 13:17 | XMS_ITS | Encounter Summary ---
Author Organization [facility] Address [address] [place] [address] Care Team Providers Care Assistant Kitchen Manager Name Role Phone Stanley Toledo MD Unavailable [phone] Stanley Toledo MD Primary Care Provider [phone] Dora Santiago MACHINE GUIDE BASE WINDER Unavailable Christina Goddard MACHINE GUIDE BASE WINDER Unavailable Unavailable Joi Zhang MACHINE GUIDE BASE WINDER Unavailable Encounter Details Date Type Department Care Team (Late Contact Info) Description 02/10/2023 Abstract [facility] 521 Family Medicine [address] [place] [address] Stanley Toledo MD [address] [address] (Fax) Social History Tobacco Use Types Packs/Day [...] Visit [facility] [address] [address] Stanley Toledo MD [address] [address] (Fax) documented as of this encounter Visit Diagnoses Not on filedocumented in this encounter Care Teams Assistant Kitchen Manager Relationship Specialty Start Date End Date Stanley Toledo MD [address] [place] [address] PCP - ACO Reach 10/17/22 Stanley Toledo MD [address] [place] [address] PCP - General Family Medicine 11/20/22 Dora Santiago LPN [address] [place] [address] Licensed Practical Nurse Family Medicine 12/22/23 Christina Goddard LPN Licensed Practical Nurse Family Medicine 12/25/23 Joi Zhang LPN [address] [place] [address] 08/26/24 documented as of this encounter
--- OUTSIDE RECORDS SUMMARY | 2024-12-23 13:17 | XMS_ITS | Encounter Summary ---
Author Organization [facility] Address [address] [place] [address] Care Team Providers Care Slate Roofer Name Role Phone Stanley Toleod MD Unavailable [phone] Stanley Toledo MD Primary Care Provider + [phone] Dora Santiago MANAGER BILLING Unavailable Christina Goddard MANAGER BILLING Unavailable Unavailable Joi Zhang MANAGER BILLING Unavailable Encounter Details Date Type Department Care Team (Late Contact Info) Description 06/17/2023 Abstract [facility] Family Medicine [address] [place] [address] Stanley Toledo MD [address] [address] (Fax) Social History Tobacco Use Types Packs/Day [...] Visit [facility] 100 Family Medicine [address] [address] Stanley Toledo MD [address] [address] (Fax) documented as of this encounter Visit Diagnoses Not on filedocumented in this encounter Additional Health Concerns Assessment Noted Time PHQ-9 Depression Total Score: 3 05/12/20 23 1:00 PM EST documented as of this encounter Care Teams Slate Roofer Relationship Specialty Start Date End Date Stanley Toledo MD [address] [place] [address] (Fax) PCP - ACO Reach 10/17/22 Stanley Toledo MD [address] [place] [address] PCP - General Family Medicine 11/20/22 Dora Santiago LPN [address] [place] [address] Licensed Practical Nurse Family Medicine 12/22/23 Christina Goddard LPN Licensed Practical Nurse Family Medicine 12/25/23 Joi Zhang LPN [address] [place] [address] 08/26/24 documented as of this encounter
--- OUTSIDE RECORDS SUMMARY | 2024-12-23 13:17 | XMS_ITS | Encounter Summary ---
Author Organization [facility] Address [address] [place] [address] Care Team Providers Care Rotary Drill Operator Helper Name Role Phone Stanley Toledo MD Unavailable [phone] Stanley Toledo MD Primary Care Provider + [phone] Dora Santiago WORKFORCE MANAGEMENT COORDINATOR Unavailable Christina Goddard WORKFORCE MANAGEMENT COORDINATOR Unavailable Unavailable Joi Zhang WORKFORCE MANAGEMENT COORDINATOR Unavailable Encounter Details Date Type Department Care Team (Late Contact Info) Description 05/13/2023 Abstract [facility] 521 Family Medicine [address] [place] [address] Stanley Toledo MD [address] [address] (Fax) Social History Tobacco Use Types Packs/Day [...] Visit [facility] 100 Family Medicine [address] [address] Stanley Toledo MD [address] [address] (Fax) documented as of this encounter Visit Diagnoses Not on filedocumented in this encounter Additional Health Concerns Assessment Noted Time PHQ-9 Depression Total Score: 3 05/12/20 23 1:00 PM EST documented as of this encounter Care Teams Rotary Drill Operator Helper Relationship Specialty Start Date End Date Stanley Toledo MD [address] [place] [address] (Fax) PCP - ACO Reach 10/17/22 Stanley Toledo MD [address] [place] [address] PCP - General Family Medicine 11/20/22 Dora Santiago LPN [address] [place] [address] Licensed Practical Nurse Family Medicine 12/22/23 Christina Goddard LPN Licensed Practical Nurse Family Medicine 12/25/23 Joi Zhang LPN [address] [place] [address] 08/26/24 documented as of this encounter
--- OUTSIDE RECORDS SUMMARY | 2024-12-23 13:17 | XMS_ITS | Encounter Summary ---
Author Organization [facility] Address [address] [place] [address] Care Team Providers Care Plastic Molder Name Role Phone Stanley Toledo MD Unavailable [phone] Stanley Toledo MD Primary Care Provider + [phone] Dora Santiago TRADEMARK AFFIXER Unavailable Rupesh Christina TRADEMARK AFFIXER Unavailable Unavailable Joi Zhang TRADEMARK AFFIXER Unavailable Encounter Details Date Type Department Care Team ([facility] Contact Info) Description 12/17/2022 Orders Only [facility] 521 Family Medicine [address] [place] [address] Stanley Toledo MD [address] [address] Social History Tobacco Use Types Packs/Day Years [...] Team ([facility] Contact Info) Description 05/10/2025 2:00 PM EST Office Visit [facility] 100 Family Medicine [address] [address] Stanley Toledo MD 112 [facility] 100 [place] [address] documented as of this encounter Procedures Procedure [...] on filedocumented in this encounter Care Teams Plastic Molder Relationship Specialty Start Date End Date Stanley Toledo MD [address] [place] [address] (Fax) PCP - ACO Reach 10/17/22 Stanley Toledo MD [address] [place] [address] (Fax) PCP - General Family Medicine 11/20/22 Dora Santiago LPN [address] [place] [address] Licensed Practical Nurse Family Medicine 12/22/23 Christina Goddard LPN Licensed Practical Nurse Family Medicine 12/25/23 Joi Zhang LPN [address] [place] [address] 08/26/24 documented as of this encounter
--- OUTSIDE RECORDS SUMMARY | 2024-12-23 13:18 | XMS_ITS | Encounter Summary ---
Author Organization [facility] Address [address] [place] [address] Care Team Providers Care Insurance Risk Analyst Name Role Phone Stanley Toledo MD Unavailable [phone] Stanley Toledo MD Primary Care Provider + [phone] Dora Santiago PIANO REFINISHER Unavailable Christina Goddard PIANO REFINISHER Unavailable Unavailable Joi Zhang PIANO REFINISHER Unavailable Encounter Details Date Type Department Care Team (Late st Contact Info) Description 09/30/2023 Orders Only [facility] 521 Family Medicine [address] [place] [address] [employer], [place], [place] Social History Tobacco Use Types Packs/Day Years [...] Visit [facility] 100 Family Medicine 112 [facility] 100 [place] [address] Stanley Toledo MD 112 [facility] 100 [place] [address] (Fax) documented as of this encounter Visit Diagnoses Not on filedocumented in this encounter Additional Health Concerns Assessment Noted Time PHQ-9 Depression Total Score: 3 05/12/20 23 1:00 PM EST documented as of this encounter Care Teams Insurance Risk Analyst Relationship Specialty Start Date End Date Stanley Toledo MD [address] [place] [address] PCP - ACO Reach 10/17/22 Stanley Toledo MD [address] [place] [address] PCP - General Family Medicine 11/20/22 Dora Santiago LPN [address] [place] [address] Licensed Practical Nurse Family Medicine 12/22/23 Christina Goddard LPN Licensed Practical Nurse Family Medicine 12/25/23 Joi Zhang LPN [address] [place] [address] 08/26/24 documented as of this encounter
--- OUTSIDE RECORDS SUMMARY | 2024-12-23 13:18 | XMS_ITS | Encounter Summary ---
Author Organization [facility] Address [address] [place] [address] Care Team Providers Care Charge Coordinator Name Role Phone Stanley Toledo MD Unavailable [phone] Stanley Toledo MD Primary Care Provider + [phone] Joi Zhang LPN Unavailable Encounter Details Date Type Department Care Team (Late st Contact Info) Description 10/27/2024 Abstract [facility] 100 Family Medicine 112 [facility] 100 [place] [address] Stanley Toledo MD 112 [facility] 100 [place] [address] (Fax) Social History Tobacco Use Types Packs/Day [...] How often do you attend chur or rastafari services? Never 12/31/2023 Do you belong to any clubs o r organizations such as catholic groups, unions, fraternal or athletic groups, or [...] Recorded Patient Health Questionnaire-2 Score 0 05/13/2024 [facility] Occupat ional Health - Occupational [...] money to buy more. Never true 12/31/19 Within the past 12 months, t he [...] Visit [facility] 112 [facility] 100 [place] [address] Stanley Toledo MD 112 [facility] 100 [place] [address] documented as of this encounter Visit Diagnoses Not on filedocumented in this encounter Additional Health Concerns Assessment Noted Time PHQ-9 Depression Total Score: 3 05/13/20 2:00 PM EST A fall risk assessment has been complete d for the patient 12/31/2023 8:54 AM EDT documented as of this encounter Care Teams Charge Coordinator Relationship Specialty Start Date End Date Stanley Toledo MD 112 [facility] 100 [place] [address] PCP - ACO Reach 10/17/22 Stanley Toledo MD [address] [place] [address] PCP - General Family Medicine 11/20/22 Joi Zhang LPN [address] [place] [address] 08/26/24 documented as of this encounter
--- OUTSIDE RECORDS SUMMARY | 2024-12-23 13:18 | XMS_ITS | Encounter Summary ---
Author Organization [facility] Address [address] [place] [address] Care Team Providers Care Marine Equipment Preservation Inspector Name Role Phone Stanley Toledo MD Unavailable [phone] Stanley Toledo MD Primary Care Provider + [phone] CLERK Unavailable Rupesh Christina CIRCUIT COURT CLERK Unavailable Unavailable Joi Zhang CIRCUIT COURT CLERK Unavailable Encounter Details Date Type Department Care Team (Late Contact Info) Description 09/19/2023 Abstract [facility] 521 Family Medicine [address] [place] [address] Margarito Valentine MD [address] [place] [address] Social History Tobacco Use Types Packs/Day Years [...] Visit [facility] 100 Family Medicine [address] [address] Stanley Toledo MD 112 [facility] 100 [place] [address] (Fax) documented as of this encounter Visit Diagnoses Not on filedocumented in this encounter Additional Health Concerns Assessment Noted Time PHQ-9 Depression Total Score: 3 05/12/20 23 1:00 PM EST documented as of this encounter Care Teams Marine Equipment Preservation Inspector Relationship Specialty Start Date End Date Stanley Toledo MD [address] [place] [address] (Fax) PCP - ACO Reach 10/17/22 Stanley Toledo MD [address] [place] [address] PCP - General Family Medicine 11/20/22 Dora Santiago LPN [address] [place] [address] Licensed Practical Nurse Family Medicine 12/22/23 Christina Goddard LPN Licensed Practical Nurse Family Medicine 12/25/23 Joi Zhang LPN [address] [place] [address] 08/26/24 documented as of this encounter
--- OUTSIDE RECORDS SUMMARY | 2024-12-23 13:18 | XMS_ITS | Encounter Summary ---
Author Organization [facility] Address [address] [place] [address] Care Team Providers Care Weaver Dobby Loom Name Role Phone Stanley Toledo MD Unavailable [phone] Stanley Toledo MD Primary Care Provider + [phone] Joi Zhang LPN Unavailable Encounter Details Date Type Department Care Team (Late st Contact Info) Description 09/21/2024 Abstract [facility] 100 Family Medicine 112 [facility] 100 [place] [address] Stanley Toledo MD 112 [facility] 100 [place] [address] (Fax) Social History Tobacco Use Types Packs/Day [...] How often do you attend chur or oriental orthodox services? Never 12/31/2023 Do you belong to any clubs o r organizations such as mosque groups, unions, fraternal or athletic groups, or [...] 0 05/13/2024 [facility] of Occupat ional Health - Occupational [...] any time in the past 12 m [facility], were you homeless or living in a [...] Visit [facility] 112 [facility] 100 [place] [address] Stanley Toledo MD 112 [facility] 100 [place] [address] documented as of this encounter Visit Diagnoses Not on filedocumented in this encounter Additional Health Concerns Assessment Noted Time PHQ-9 Depression Total Score: 3 05/13/20 2:00 PM EST A fall risk assessment has been complete d for the patient 12/31/2023 8:54 AM EDT documented as of this encounter Care Teams Weaver Dobby Loom Relationship Specialty Start Date End Date Stanley Toledo MD 112 [facility] 100 [place] [address] PCP - ACO Reach 10/17/22 Stanley Toledo MD [address] [place] [address] PCP - General Family Medicine 11/20/22 Joi Zhang LPN [address] [place] [address] 08/26/24 documented as of this encounter
--- OUTSIDE RECORDS SUMMARY | 2024-12-23 13:18 | XMS_ITS | Encounter Summary ---
Author Organization [facility] Address [address] [place] [address] Phone Care Team Providers Care Beveler Name Role Phone Stanley Toledo MD Primary Care Provider [phone] Ruby Vickers MD Unavailable Encounter Details Date Type Department Care Team (Late st Contact Info) Description 03/04/2024 Scanned Document [facility] [address] [place] [address] Scanning, Generic Provider Social History Tobacco Use [...] Description 03/29/2025 11:00 AM EST Office Visit [facility] 703 [facility] [address] [place] [address] Teo Stokes MD 703 [facility] 2, [address] [place] [address] documented [...] documented as of this encounter Care Teams Beveler Relationship Specialty Start Date End Date Stanley Toledo MD [address] [place] [address] PCP - General 05/17/22 Ruby Vickers MD 125 [address] [facility] Medical Office Bldg, [address] [place] [address] Council Member Electrophysiology 10/04/24 documented as of this encounter
--- OUTSIDE RECORDS SUMMARY | 2024-12-23 13:18 | XMS_ITS | Encounter Summary ---
Author Organization [facility] Address [address] [place] [address] Care Team Providers Care Baton Twirler Name Role Phone Stanley Toledo MD Unavailable [phone] Stanley Toledo MD Primary Care Provider + [phone] Joi Zhang LPN Unavailable Encounter Details Date Type Department Care Team (Late st Contact Info) Description 10/26/2024 Abstract [facility] 100 Family Medicine 112 [facility] 100 [place] [address] Stanley Toledo MD 112 [facility] 100 [place] [address] (Fax) Social History Tobacco Use Types Packs/Day [...] How often do you attend chur or lutheran services? Never 12/31/2023 Do you belong to [...] Recorded Patient Health Questionnaire-2 Score 0 05/13/2024 [facility] of Occupat ional Health - Occupational Stress [...] any time in the past 12 m [facility], were you homeless or living in a [...] Visit [facility] 112 [facility] 100 [place] [address] Stanley Toledo MD 112 [facility] 100 [place] [address] documented as of this encounter Visit Diagnoses Not on filedocumented in this encounter Additional Health Concerns Assessment Noted Time PHQ-9 Depression Total Score: 3 05/13/20 2:00 PM EST A fall risk assessment has been complete d for the patient 12/31/2023 8:54 AM EDT documented as of this encounter Care Teams Baton Twirler Relationship Specialty Start Date End Date Stanley Toledo MD 112 [facility] 100 [place] [address] PCP - ACO Reach 10/17/22 Stanley Toledo MD [address] [place] [address] PCP - General Family Medicine 11/20/22 Joi Zhang LPN [address] [place] [address] 08/26/24 documented as of this encounter
--- OUTSIDE RECORDS SUMMARY | 2024-12-23 13:18 | XMS_ITS | Encounter Summary ---
Author Organization [facility] Address [address] [place] [address] Phone Care Team Providers Care Meat Packager Name Role Phone Stanley Toledo MD Primary Care Provider Ruby Vickers MD Unavailable Encounter Details Date Type Department Care Team (Late st Contact Info) Description 2023 Scanned Document [facility] [address] [place] [phone] Scanning, Generic Provider Social History Tobacco Use [...] Description 03/29/2025 11:00 AM EST Office Visit [facility] [address] [address] Teo Stokes MD 703 [facility] 2, [address] [place] [address] documented as of this encounter Procedures Procedure Name Priority Date/Time Associated Diagnosis Comments OUTSIDE LAB SCAN 2023 documented in this encounter Results * OUTSIDE LAB SCAN (2023) Narrative 2023 Ordered by an unspecified provider. us Generic Provider Scanning OUTSIDE SCAN Final Result documented in this encounter Visit Diagnoses Not on filedocumented in this encounter Care Teams Meat Packager Relationship Specialty Start Date End Date Stanley Toledo MD [address] [place] [address] PCP - General 05/17/22 Ruby Vickers MD 125 [address] [facility] Medical Office Bldg, [address] [place] [address] Academic Vice President Electrophysiology 10/04/24 documented as of this encounter
--- OUTSIDE RECORDS SUMMARY | 2024-12-23 13:18 | XMS_ITS | Encounter Summary ---
Author Organization [facility] Address [address] [place] [address] Phone Care Team Providers Care Combination Machine Tool Operator Name Role Phone Stanley Toledo MD Primary Care Provider Ruby Vickers MD Unavailable Encounter Details Date Type Department Care Team (Late st Contact Info) Description 03/08/2024 Scanned Document [facility] [address] [place] [phone] Scanning, Generic Provider Social History Tobacco Use [...] EST Office Visit [facility] 703 [facility] [address] [place] [address] Teo Stokes MD 703 [facility] 2, [address] [place] [address] documented as of this encounter [...] documented as of this encounter Care Teams Combination Machine Tool Operator Relationship Specialty Start Date End Date Stanley Toledo MD [address] [place] [address] PCP - General 05/17/22 Ruby Vickers MD 125 [address] [facility] Medical Office Bldg, [address] [place] [address] Flight Radio Operator Electrophysiology 10/04/24 documented as of this encounter
--- OUTSIDE RECORDS SUMMARY | 2024-12-23 13:18 | XMS_ITS | Encounter Summary ---
Author Organization [facility] Address [address] [place] [address] Phone Care Team Providers Care Shelter Monitor Name Role Phone Stanley Toledo MD Primary Care Provider Ruby Vickers MD Unavailable Encounter Details Date Type Department Care Team (Late st Contact Info) Description 01/19/2024 Scanned Document [facility] [address] [place] [address] Scanning, Generic Provider Social History Tobacco Use [...] Description 03/29/2025 11:00 AM EST Office Visit [facility] 703 [facility] 250 [place] [address] Teo Stokes MD 703 [facility] 2, [address] [place] [address] documented as of this encounter Visit Diagnoses Not on filedocumented in this encounter Care Teams Shelter Monitor Relationship Specialty Start Date End Date Stanley Toledo MD [address] [place] [address] PCP - General 05/17/22 Ruby Vickers MD 125 [address] [facility], [facility] 305 [place] [address] Pickler Helper Electrophysiology 10/04/24 documented as of this encounter
--- OUTSIDE RECORDS SUMMARY | 2024-12-23 13:18 | XMS_ITS | Encounter Summary ---
Author Organization [facility] Address [address] [place] [address] Care Team Providers Care Banking Representative Name Role Phone Stanley Toledo MD Unavailable [phone] Stanley Toledo MD Primary Care Provider + [phone] Joi Zhang LPN Unavailable Encounter Details Date Type Department Care Team (Late st Contact Info) Description 10/06/2024 Abstract [facility] Family Medicine 112 [facility] 100 [place] [address] Stanley Toledo MD 112 [facility] 100 [place] [address] (Fax) Social History Tobacco Use Types Packs/Day [...] any clubs o r organizations such as hoahaoism groups, unions, fraternal or athletic groups, or [...] Recorded Patient Health Questionnaire-2 Score 0 05/13/2024 [facility] Occupat ional Health - Occupational [...] any time in the past 12 m [facility], were you homeless or living in [...] Visit [facility] 112 [facility] 100 [place] [address] Stanley Toledo MD 112 [facility] 100 [place] [address] documented as of this encounter Visit Diagnoses Not on filedocumented in this encounter Additional Health Concerns Assessment Noted Time PHQ-9 Depression Total Score: 3 05/13/20 2:00 PM EST A fall risk assessment has been complete d for the patient 12/31/2023 8:54 AM EDT documented as of this encounter Care Teams Banking Representative Relationship Specialty Start Date End Date Stanley Toledo MD 112 [facility] 100 [place] [address] PCP - ACO Reach 10/17/22 Stanley Toledo MD [address] [place] [address] PCP - General Family Medicine 11/20/22 Joi Zhang LPN [address] [place] [address] 08/26/24 documented as of this encounter
--- OUTSIDE RECORDS SUMMARY | 2024-12-23 13:18 | XMS_ITS | Encounter Summary ---
Author Organization [facility] Address [address] [place] [address] Care Team Providers Care Sat Math Tutor Name Role Phone Stanlye Toledo MD Unavailable [phone] Stanley Toledo MD Primary Care Provider + [phone] Dora Santiago APPLIANCE ASSEMBLER Unavailable Christina Goddard APPLIANCE ASSEMBLER Unavailable Unavailable Joi Zhang APPLIANCE ASSEMBLER Unavailable Encounter Details Date Type Department Care Team (Late Contact Info) Description 10/22/2023 Abstract [facility] Family Medicine [address] [place] [address] Stanley Toledo MD [address] [address] (Fax) Social History Tobacco Use Types Packs/Day [...] Visit [facility] 100 Family Medicine [address] [address] Stanley Toledo MD [address] [address] (Fax) documented as of this encounter Visit Diagnoses Not on filedocumented in this encounter Additional Health Concerns Assessment Noted Time PHQ-9 Depression Total Score: 3 05/12/20 23 1:00 PM EST documented as of this encounter Care Teams Sat Math Tutor Relationship Specialty Start Date End Date Stanley Toledo MD [address] [place] [address] (Fax) PCP - ACO Reach 10/17/22 Stanley Toledo MD [address] [place] [address] PCP - General Family Medicine 11/20/22 Dora Santiago LPN [address] [place] [address] Licensed Practical Nurse Family Medicine 12/22/23 Christina Goddard LPN Licensed Practical Nurse Family Medicine 12/25/23 Joi Zhang LPN [address] [place] [address] 08/26/24 documented as of this encounter
--- OUTSIDE RECORDS SUMMARY | 2024-12-23 13:18 | XMS_ITS | Encounter Summary ---
Author Organization [facility] Address [address] [place] [address] Phone Care Team Providers Care Hemotherapist Name Role Phone Stanley Toledo MD Primary Care Provider Ruby Vickers MD Unavailable Encounter Details Date Type Department Care Team (Late st Contact Info) Description 03/23/2024 Scanned Document [facility] [address] [place] [phone] Scanning, Generic Provider Social History Tobacco Use [...] Visit [facility] 703 [facility] [address] [place] [address] Teo Stokes MD 703 [facility] 2, [address] [place] [address] documented as of this encounter [...] documented as of this encounter Care Teams Hemotherapist Relationship Specialty Start Date End Date Stanley Toledo MD [address] [place] [address] PCP - General 05/17/22 Ruby Vickers MD 125 [facility] Medical Office Bldg, [address] [place] [address] Carpet Inspector Electrophysiology 10/04/24 documented as of this encounter
--- OUTSIDE RECORDS SUMMARY | 2024-12-23 13:18 | XMS_ITS | Encounter Summary ---
Author Organization [facility] Address [address] [place] [address] Care Team Providers Care Skidway Worker Name Role Phone Stanley Toledo MD Unavailable [phone] Stanley Toledo MD Primary Care Provider + [phone] Joi Zhang LPN Unavailable Encounter Details Date Type Department Care Team (Late st Contact Info) Description 2024 Abstract [facility] Family Medicine 112 [facility] 100 [place] [address] Stanley Toledo MD 112 [facility] 100 [place] [address] (Fax) Social History Tobacco Use Types Packs/Day [...] How often do you attend chur or temple services? Never 12/31/2023 Do you belong to any clubs o r organizations such as christian groups, unions, fraternal or athletic groups, or [...] Recorded Patient Health Questionnaire-2 Score 0 05/13/2024 [facility] of Occupat ional Health - [...] any time in the past 12 m [facility], were you homeless or living in a jail (including now)? No 12/31/2023 Sex and Gender [...] [facility] 112 [facility] 100 [place] [address] Stanley Toledo MD 112 [facility] 100 [place] [address] documented as of this encounter Visit Diagnoses Not on filedocumented in this encounter Additional Health Concerns Assessment Noted Time PHQ-9 Depression Total Score: 3 05/13/20 2:00 PM EST A fall risk assessment has been complete d for the patient 12/31/2023 8:54 AM EDT documented as of this encounter Care Teams Skidway Worker Relationship Specialty Start Date End Date Stanley Toledo MD 112 [facility] 100 [place] [address] PCP - ACO Reach 10/17/22 Stanley Toledo MD [address] [place] [address] PCP - General Family Medicine 11/20/22 Joi Zhang LPN [address] [place] [address] 08/26/24 documented as of this encounter
--- OUTSIDE RECORDS SUMMARY | 2024-12-23 13:18 | XMS_ITS | Encounter Summary ---
Author Organization [facility] Address [address] [place] [address] Care Team Providers Care Washing Machine Installer Name Role Phone Stanley Toledo MD Unavailable [phone] Stanley Toledo MD Primary Care Provider + [phone] Joi Zhang LPN Unavailable Encounter Details Date Type Department Care Team (Late st Contact Info) Description 11/22/2024 Abstract [facility] Family Medicine 112 [facility] 100 [place] [address] Stanley Toledo MD 112 [facility] 100 [place] [address] (Fax) Social History Tobacco Use Types Packs/Day [...] How often do you attend chur or orthodox services? Never 12/31/2023 Do you belong to any clubs o r organizations such as roman catholic groups, unions, fraternal or athletic groups, [...] Recorded Patient Health Questionnaire-2 Score 0 05/13/2024 [facility] of Occupat ional Health - Occupational Stress [...] any time in the past 12 m [facility], were you homeless or living in a [...] Visit [facility] 112 [facility] 100 [place] [address] Stanley Toledo MD 112 [facility] 100 [place] [address] documented as of this encounter Visit Diagnoses Not on filedocumented in this encounter Additional Health Concerns Assessment Noted Time PHQ-9 Depression Total Score: 3 05/13/20 2:00 PM EST A fall risk assessment has been complete d for the patient 12/31/2023 8:54 AM EDT documented as of this encounter Care Teams Washing Machine Installer Relationship Specialty Start Date End Date Stanley Toledo MD 112 [facility] 100 [place] [address] PCP - ACO Reach 10/17/22 Stanley Toledo MD [address] [place] [address] PCP - General Family Medicine 11/20/22 Joi Zhang LPN [address] [place] [address] 08/26/24 documented as of this encounter
--- OUTSIDE RECORDS SUMMARY | 2024-12-23 13:18 | XMS_ITS | Encounter Summary ---
Author Organization [facility] Address [address] [place] [address] Care Team Providers Care City Maintenance Manager Name Role Phone Stanley Toledo MD Unavailable [phone] Stanley Toledo MD Primary Care Provider + [phone] Joi Zhang LPN Unavailable Encounter Details Date Type Department Care Team (Late st Contact Info) Description 10/27/2024 Abstract [facility] Family Medicine 112 [facility] 100 [place] [address] Stanley Toledo MD 112 [facility] 100 [place] [address] (Fax) Social History Tobacco Use Types Packs/Day [...] How often do you attend chur or yazidi services? Never 12/31/2023 Do you belong to any clubs o r organizations such as episcopal groups, unions, fraternal or athletic groups, or [...] Recorded Patient Health Questionnaire-2 Score 0 05/13/2024 [facility] of Occupat ional Health - Occupational Stress [...] were you homeless or living in a care home (including now)? No 12/31/2023 Sex and [...] Visit [facility] 112 [facility] 100 [place] [address] Stanley Toledo MD 112 [facility] 100 [place] [address] documented as of this encounter Visit Diagnoses Not on filedocumented in this encounter Additional Health Concerns Assessment Noted Time PHQ-9 Depression Total Score: 3 05/13/20 2:00 PM EST A fall risk assessment has been complete d for the patient 12/31/2023 8:54 AM EDT documented as of this encounter Care Teams City Maintenance Manager Relationship Specialty Start Date End Date Stanley Toledo MD 112 [facility] 100 [place] [address] PCP - ACO Reach 10/17/22 Stanley Toledo MD [address] [place] [address] PCP - General Family Medicine 11/20/22 Joi Zhang LPN [address] [place] [address] 08/26/24 documented as of this encounter
--- OUTSIDE RECORDS SUMMARY | 2024-12-23 13:18 | XMS_ITS | Encounter Summary ---
Author Organization [facility] Address [address] [place] [address] Care Team Providers Care Roving Changer Name Role Phone Stanley Toledo MD Unavailable [phone] Stanley Toledo MD Primary Care Provider + [phone] Joi Zhang LPN Unavailable Encounter Details Date Type Department Care Team (Late st Contact Info) Description 10/27/2024 Abstract [facility] Family Medicine 112 [facility] 100 [place] [address] Stanley Toledo MD 112 [facility] 100 [place] [address] (Fax) Social History Tobacco Use Types Packs/Day [...] How often do you attend chur or latter-day services? Never 12/31/2023 Do you belong to [...] Recorded Patient Health Questionnaire-2 Score 0 05/13/2024 [facility] of Occupat ional Health - [...] Visit [facility] 112 [facility] 100 [place] [address] Stanley Toledo MD 112 [facility] 100 [place] [address] documented as of this encounter Visit Diagnoses Not on filedocumented in this encounter Additional Health Concerns Assessment Noted Time PHQ-9 Depression Total Score: 3 05/13/20 2:00 PM EST A fall risk assessment has been complete d for the patient 12/31/2023 8:54 AM EDT documented as of this encounter Care Teams Roving Changer Relationship Specialty Start Date End Date Stanley Toledo MD 112 [facility] 100 [place] [address] PCP - ACO Reach 10/17/22 Stanley Toledo MD [address] [place] [address] PCP - General Family Medicine 11/20/22 Joi Zhang LPN [address] [place] [address] 08/26/24 documented as of this encounter
--- OUTSIDE RECORDS SUMMARY | 2024-12-23 13:18 | XMS_ITS | Encounter Summary ---
Author Organization [facility] Address [address] [place] [address] Phone Care Team Providers Care Steam Boiler Fireman Name Role Phone Stanley Toledo MD Primary Care Provider [phone] Ruby Vickers MD Unavailable Encounter Details Date Type Department Care Team (Late st Contact Info) Description 01/16/2024 Scanned Document [facility] [address] [place] [address] Scanning, Generic Provider Social History Tobacco Use [...] Office Visit [facility] [address] [address] Teo Stokes MD 703 [facility] 2, [address] [place] [address] documented as of this encounter Procedures Procedure Name Priority Date/Time Associated Diagnosis Comments ECHOCARDIOGRAM 01/16/2024 documented in this encounter Results * Echocardiogram (01/16/2024) Narrative 01/16/2024 Ordered by an unspecified provider. us Generic Provider Scanning CV ECHO PROCEDURES Fin al Result documented in this encounter Visit Diagnoses Not on filedocumented in this encounter Care Teams Steam Boiler Fireman Relationship Specialty Start Date End Date Stanley Toledo MD [address] [place] [address] PCP - General 05/17/22 Ruby Vickers MD 125 [address] [facility] Medical Office Bldg, [address] [place] [address] Set Up Mechanic Heading Machines Electrophysiology 10/04/24 documented as of this encounter
--- OUTSIDE RECORDS SUMMARY | 2024-12-23 13:18 | XMS_ITS | Encounter Summary ---
Author Organization [facility] Address [address] [place] [address] Phone Care Team Providers Care Manager Of Enterprise Name Role Phone Stanley Toledo MD Primary Care Provider Ruby Vickers MD Unavailable Encounter Details Date Type Department Care Team (Late st Contact Info) Description 04/01/2024 Scanned Document [facility] [address] [place] [address] Scanning, Generic Provider Social History Tobacco Use [...] Office Visit [facility] 703 [facility] 250 [place] [address] Teo Stokes MD 703 [facility] 2, [address] [place] [address] documented as of this encounter Visit Diagnoses Not on filedocumented in this encounter Additional Health Concerns Assessment Noted Time A fall risk assessment has been complete d for the patient 02/10/2024 9:14 AM EDT documented as of this encounter Care Teams Manager Of Enterprise Relationship Specialty Start Date End Date Stanley Toledo MD [address] [place] [address] PCP - General 05/17/22 Ruby Vickers MD 125 [address] [facility] Bldg, [address] [place] [address] Assistant Field Hockey Coach Electrophysiology 10/04/24 documented as of this encounter
--- OUTSIDE RECORDS SUMMARY | 2024-12-23 13:18 | XMS_ITS | Encounter Summary ---
Author Organization [facility] Address [address] [place] [address] Care Team Providers Care Roll Up Operator Name Role Phone Stanley Emerson MD Unavailable [phone] Stanley Emerson MD Primary Care Provider + [phone] Dora Santiago RN CARDIAC Unavailable Christina Goddard RN CARDIAC Unavailable Unavailable Joi Zhang RN CARDIAC Unavailable Encounter Details Date Type Department Care [...] Visit [facility] Family Medicine 112 [facility] 100 [place] [address] Stanley Emerson MD 112 [facility] 100 [place] [address] documented as of this encounter Procedures Procedure Name Priority Date/Time Associated Diagnosis Comments VASC US LOWER EXTREMITY VENOUS DUPLEX RIGHT 07/31/2023 10:47 AM EST documented in this encounter Results * Vascular US lower extremity venous duplex right (07/31/2023 10:47 AM EST) Anatomical Region Laterality Modality Lower Extremities Ultrasound 07/31/2023 10:4 7 AM EST Narrative 07/31/2023 10:50 [place] [address] Ultrasound Report Signed Patient: ALEX GRAJEDA MR#: [id number] : 1945 Acct:[id number] Age/Sex: 77 / M ADM Date: 07/31/23 Loc: RAD Attending Dr: Shahriar Mosley M.D. Ordering Physician: Sahhriar Mosley Date of Service: 07/31/23 Procedure(s): US venous doppler LE RT Accession Number(s): [id number] cc: Shahriar Mosley; STANLEY EMERSON [place] [id number] Patient Name: ALEX GRAJEDA MRN: [id number] date: 1945 Sex: M Assigned Patient Location: RAD Current Patient Location: RAD Accession/Order Number: [id number] Exam Date: 07/31/2023 08:40 Report Date: 07/31/2023 [...] Signed By: 07/31/23 1050 DD/ 1047 TD/TT: Refrigeration Operator: Procedure Note Radiology, Radiologist, MD - 07/31/[address] [address] Ultrasound Report Signed Patient: ALEX GRAJEDA R#: [id number] : 1945cct:[id number] Age/Sex: 77 / MADM Date: 07/31/23 Loc: RAD Attending Dr: Shahriar Mosley M.D. Ordering Physician: Shahriar Mosley Date of Service: 07/31/23 Procedure(s): US venous doppler LE RT Accession Number(s): [id number] cc: Shahriar Mosley; STANLEY EMERSON [place] [address] Patient Name: ALEX GRAJEDA MRN: [id number] date: 1945 Sex: M Assigned Patient Location: [facility] Current Patient Location: [facility] Accession/Order Number: [id number] Exam Date: 07/31/2023 08:40 Report Date: 07/31/2023 [...] M.D. Signed By:07/31/23 1050 DD/ 1047 TD/TT: Refrigeration Operator: us Generic External Data Provider IMG US PROCEDURES Final Result documented in this encounter Visit Diagnoses Not on filedocumented in this encounter Additional Health Concerns Assessment Noted Time PHQ-9 Depression Total Score: 3 05/12/20 23 1:00 PM EST documented as of this encounter Care Teams Roll Up Operator Relationship Specialty Start Date End Date Stanley Emerson MD [address] [place] [address] PCP - ACO Reach 10/17/22 Stanley Emerson MD [address] [place] [address] PCP - General Family Medicine 11/20/22 Dora Santiago LPN [address] [place] [address] Licensed Practical Nurse Family Medicine 12/22/23 Christina Goddard LPN Licensed Practical Nurse Family Medicine 12/25/23 Joi Zhang LPN [address] [place] [address] 08/26/24 documented as of this encounter
--- OUTSIDE RECORDS SUMMARY | 2024-12-23 13:18 | XMS_ITS | Encounter Summary ---
Author Organization [facility] Address [address] [place] [address] Phone Care Team Providers Care Editor Department Name Role Phone Stanley Toledo MD Primary Care Provider [phone] Ruby Vickers MD Unavailable Encounter Details Date Type Department Care Team (Late st Contact Info) Description 01/23/2024 Scanned Document [facility] [address] [place] [phone] Scanning, Generic Provider Social History Tobacco Use [...] Description 03/29/2025 11:00 AM EST Office Visit [facility] 703 [facility] 250 [place] [address] Teo Stokes MD 703 [facility] 2, [address] [place] [address] documented as of this encounter Visit Diagnoses Not on filedocumented in this encounter Care Teams Editor Department Relationship Specialty Start Date End Date Stanley Toledo MD [address] [place] [address] PCP - General 05/17/22 Ruby Vickers MD 125 E [facility] 305 [place] [address] Surveillance Observer Electrophysiology 10/04/24 documented as of this encounter
--- OUTSIDE RECORDS SUMMARY | 2024-12-23 13:18 | XMS_ITS | Encounter Summary ---
Author Organization [facility] Address [address] [place] [address] Phone Care Team Providers Care Rubber Goods Cutter Finisher Name Role Phone Stanley Toledo MD Primary Care Provider Ruby Vickers MD Unavailable Encounter Details Date Type Department Care Team (Late st Contact Info) Description 03/24/2024 Scanned Document [facility] [address] [place] [address] Scanning, Generic Provider Social History Tobacco Use [...] EST Office Visit [facility] 703 [facility] [address] [place] [address] Teo Stokes MD 703 [facility] 2, [address] [place] [address] documented as of this [...] documented as of this encounter Care Teams Rubber Goods Cutter Finisher Relationship Specialty Start Date End Date Stanley Toledo MD [address] [place] [address] PCP - General 05/17/22 Ruby Vickers MD 125 [address] [facility] Medical Office Bldg, [address] [place] [address] Installer Electrophysiology 10/04/24 documented as of this encounter
--- OUTSIDE RECORDS SUMMARY | 2024-12-23 13:18 | XMS_ITS | Encounter Summary ---
Author Organization [facility] Address [address] [place] [address] Care Team Providers Care Senior Reactor Operator Name Role Phone Stanley Toledo MD Unavailable [phone] Stanley Toledo MD Primary Care Provider + [phone] Joi Zhang LPN Unavailable Encounter Details Date Type Department Care Team (Late st Contact Info) Description 09/21/2024 Abstract [facility] Family Medicine 112 [facility] 100 [place] [address] Stanley Toledo MD 112 [facility] 100 [place] [address] (Fax) Social History Tobacco Use Types Packs/Day [...] How often do you attend chur or yazidism services? Never 12/31/2023 Do you belong to [...] Recorded Patient Health Questionnaire-2 Score 0 05/13/2024 [facility] of Occupat ional Health - Occupational Stress [...] any time in the past 12 m [facility], were you homeless or [...] [facility] 112 [facility] 100 [place] [address] Stanley Toledo MD 112 [facility] 100 [place] [address] documented as of this encounter Visit Diagnoses Not on filedocumented in this encounter Additional Health Concerns Assessment Noted Time PHQ-9 Depression Total Score: 3 05/13/20 2:00 PM EST A fall risk assessment has been complete d for the patient 12/31/2023 8:54 AM EDT documented as of this encounter Care Teams Senior Reactor Operator Relationship Specialty Start Date End Date Stanley Toledo MD 112 [facility] 100 [place] [address] PCP - ACO Reach 10/17/22 Stanley Toledo MD [address] [place] [address] PCP - General Family Medicine 11/20/22 Joi Zhang LPN [address] [place] [address] 08/26/24 documented as of this encounter
--- OUTSIDE RECORDS SUMMARY | 2024-12-23 13:18 | XMS_ITS | Encounter Summary ---
Author Organization [facility] Address [address] [place] [address] Care Team Providers Care Stand Up Comedian Name Role Phone Stanley Toledo MD Unavailable [phone] Stanley Toledo MD Primary Care Provider + [phone] Joi Zhang LPN Unavailable Encounter Details Date Type Department Care Team (Late st Contact Info) Description 12/20/2024 Patient Outreach [facility] [address] [place] [address] Joi Zhang LPN [address] [facility] [address] [place] [address] Social History Tobacco Use Types Packs/Day Years [...] any clubs o r organizations such as islam groups, unions, fraternal or athletic groups, or [...] Recorded Patient Health Questionnaire-2 Score 0 05/13/2024 [facility] of Occupat ional Health - Occupational [...] any time in the past 12 m [facility], were you homeless or living in a senior living (including now)? No 12/31/2023 Sex and Gender Information Value Date Recorded Sex Assigned at Not on file Legal Sex Male 7:16 PM EDT Gender Identity Not on file Sexual Orientation Not on file documented as of this encounter Progress Notes * Joi Zhang LPN - 12/20/2024 3:28 PM EDT Call to pt for outreach. Pts spouse answers and states that pt is doing ok. She states it seems like his dementia is getting better. B/P's seem higher than they were, but they are not too high. Legs are still red and was told it was d/t venous deficiency and she has been applying lotion. Pt has decided not to get the defibrillator placed. Sees cardiologists in March . She shares he does not have to go back to urologist for a year. Pt had cystoscopy and she believes it was good. Denies any issues with UTI's since pt has gone on Keflex routine 3 days a week. Pts spouse denies any needs or concerns at this time. 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 4 chronic kidney disease, or unspecified chronic kidney disease documented in this encounter Additional Health Concerns Assessment Noted Time PHQ-9 Depression Total Score: 3 05/13/20 24 2:00 PM EST A fall risk assessment has been complete d for the patient 12/31/2023 8:54 AM EDT documented as of this encounter Care Teams Stand Up Comedian Relationship Specialty Start Date End Date Stanley Toledo MD 112 [facility] [address] [place] [address] PCP - ACO Reach 10/17/22 Stanley Toledo MD 112 [facility] [address] [place] [address] PCP - General Family Medicine 11/20/22 Joi Zhang LPN 112 [facility] [address] [place] [address] 08/26/24 documented as of this encounter
--- OUTSIDE RECORDS SUMMARY | 2024-12-23 13:18 | XMS_ITS | Encounter Summary ---
Author Organization [facility] Address [address] [place] [address] Phone Care Team Providers Care Craft Artist Name Role Phone Stanley Toledo MD Primary Care Provider Ruby Vickers MD Unavailable Encounter Details Date Type Department Care Team (Late st Contact Info) Description 02/11/2024 Scanned Document [facility] [address] [place] [address] Scanning, Generic Provider Social History [...] Description 03/29/2025 11:00 AM EST Office Visit [facility] [address] [facility] [address] [place] [address] Teo Sotkes MD [address] [facility] [address] [place] [address] documented as of this encounter [...] documented as of this encounter Care Teams Craft Artist Relationship Specialty Start Date End Date Stanley Toledo MD [address] [place] [address] PCP - General 05/17/22 Ruby Vickers MD [address] [facility] Medical Office Bld[address], [address] [place] [address] [facility] Elect[facility] 10/04/24 documented as of this encounter
--- OUTSIDE RECORDS SUMMARY | 2024-12-23 13:18 | XMS_ITS | Clinical Summary ---
Author Organization [facility] Address [address] [place] [address] Care Team Providers Care Validation Consultant Name Role Phone Stanley Toledo MD Unavailable [phone] Stanley Toledo MD Primary Care Provider + [phone] Joi Zhang LPN Unavailable Allergies No known active allergies Medications ferrous sulfate 325 (65 Fe) MG tablet Take 325 mg by mouth in the morning. Take with meals. Active albuterol HFA 90 mcg/act inhalerIndicati ons:Simple chronic bronchitis (HCC) Inhale 2 puffs every 6 (six) hours if needed for wheezing 54 g 1 09/30/2023 Active FIBER ADULT GUMMIES PO Take 2 tablets by mouth Daily Active Multiple Vitamins-Minera ls (Multivitamin Gummies Mens) chewable tablet Chew 1 tablet Daily Active atorvastatin (Lipitor) 80 MG tablet Take 80 mg by mouth at bedtime 01/16/2024 Active nitroglycerin (Nitrostat) 0.[address] 0.4 mg under the tongue every 5 (five) minutes if needed for chest pain 01/16/2024 Active amiodarone (Pacerone) 200 MG tablet Take 200 mg by mouth Daily Active furosemide (Lasix) 40 MG tablet Take 40 mg by mouth in the morning. 02/04/2024 Active Spacer/Aero-Hol ding Chambers (BreatheRite Dulce Spacer Adult) miscIndications :Simple chronic bronchitis (HCC) 2 puffs 4 (four) times a day as needed (sob and cough) 1 each 02/17/2024 Active potassium chloride CR (Klor-Con M20) 20 MEQ ER tablet Take 20 mEq by mouth in the morning. 02/18/2024 02/18/20 25 Active clopidogrel (Plavix) 75 MG tablet Take 75 mg by mouth Daily Active warfarin (Coumadin) 2 MG tablet Take 2 mg by mouth 1 (one) time each day 5 days a week (Friday, Friday, Friday, Friday and Friday) 04/21/2024 Active warfarin (Coumadin) 2 MG tablet Take 1 mg by mouth 1 (one) time each day 2 days a week (Friday and ) Active metoprolol succinate XL (Toprol-XL) 25 MG 24 hr tablet Take 25 mg by mouth in the morning. 05/21/2024 05/21/20 25 Active methIMAzole (Tapazole) 5 MG tablet Take 1 tablet (5 mg) by mouth in the morning and 1 tablet (5 mg) before bedtime. 60 tablet 11 07/29/2024 07/30/19 26 Active cephalexin (Keflex) 250 MG capsule Take 250 mg by mouth 3 (three) times a week On Friday, Friday, Friday10/22/2024 Active QUEtiapine (SEROquel) 25 MG tablet Take 25 mg by mouth at bedtime Active donepezil (Aricept) 10 MG tabletIndicatio ns: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 disturbance, psychotic disturbance, mood disturbance, or anxiety (HCC) Take 2 tablets (20 mg) by mouth at bedtime 11/19/2024 05/18/20 Active Active Problems Problem Noted Date Diagnosed Date Delirium due to another medical condition 2024 Lower extremity edema 10/02/2024 Community acquired pneumonia of lower lobe of nash ng 10/02/2024 Anemia due to stage 3b chronic kidney disease CHF (congestive heart failure) 02/17/2024 Ischemic cardiomyopathy 02/10/2024 Presence of stent in LAD coronary artery 024 Former smoker 01/28/2024 Bilateral hydronephrosis 10/06/2023 Folic acid deficiency 10/06/2023 Vitamin B 12 deficiency 10/06/2023 Stage 3b chronic kidney disease 05/12/2023 Hydroureter 12/19/2022 Dementia 12/19/2022 COPD with [...] Encounters Date Type Department Care Team Description 12/20/2024 Patient Outreach [facility] [address] [place] [address] Joi Zhang LPN 2024 Abstract [facility] [address] [facility] 100 [place] [address] Stanley Toledo MD 11/24/2024 Abstract [facility] [address] [facility] 100 [place] [address] Stanley Toledo MD 11/22/2024 Abstract [facility] 100 Family Medicine [address] [address] [place] [address] Stanley Toledo MD 11/09/2024 2:00 PM EDT Office Visit [facility] 100 [facility] [address] [address] [place] [address] Stanley oTledo MD Venous insufficiency of both lower extremities (Primary Dx); Venous stasis dermatitis of right lower extremity; 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 disturbance, psychotic disturbance, mood disturbance, or anxiety (HCC) 11/09/2024 Bamboo flowsheet [facility] [address] [address] [place] [address] Stanley Toledo MD 11/09/2024 Travel 11/08/2024 Telephone [facility] [address] [address] [place] [address] Vicki Cleveland, [place] 11/03/2024 Abstract [facility] [address] [address] [place] [address] Stanley Toledo MD 11/03/2024 Abstract [facility] [place] [address] [address] [place] [address] Stanley Toledo MD 11/01/2024 Abstract [facility] [address] [address] [place] [address] Stanley Toledo MD 11/01/2024 Telephone [facility] [address] [address] [place] [address] Vicki Cleveland, [place] Care Coordination 10/29/2024 Patient Outreach [facility] [address] [place] [address] Violeta Jacques RN 10/27/2024 Clinisync Result Encounter [facility] External Department Unsolicited Provider, Generic External Data 10/27/2024 Abstract [facility] [address] [address] [place] [address] Stanley Toledo MD 10/27/2024 Abstract [facility] 100 [facility] 112 [facility] 100 [place] [address] Stanley Toledo MD 10/27/2024 Abstract [facility] 100 Family [facility] 112 [facility] [address] [place] [address] Stanley Toledo MD 10/26/2024 Abstract [facility] [place] [address] [address] [place] [address] Stanley Toledo MD 10/20/2024 Patient Outreach [facility] [address] [place] [address] Violeta Jacques RN 10/19/2024 Patient Outreach [facility] [address] [place] [address] Violeta Jacques RN 10/14/2024 2:30 PM EDT Office Visit [facility] 100 [facility] [address] [address] [place] [address] Stanley Toledo MD Pneumonia of left lower lobe due to infectious organism; Encounter for examination following treatment at hospital; Lower extremity edema; Delirium due to another medical condition 10/14/2024 Bamboo flowsheet [facility] [address] [address] [place] [address] Stanley Toledo MD 10/14/2024 Travel 10/13/2024 Orders Only [facility] [address] [address] [place] [address] Stanley Toledo MD Peripheral vascular disease (Primary Dx); Presence of stent in artery 10/12/2024 Abstract [facility] 100 Family [facility] 112 [facility] 100 [place] [address] Stanley Toledo MD 10/06/2024 Patient Outreach [facility] [address] [place] [address] ZhangJoi, CASE ADVOCATE 10/06/2024 Abstract [facility] [address] [place] [address] Stanley Toledo MD 10/02/2024 Clinisync Result Encounter [facility] External Department Unsolicited Provider, Generic External Data 10/01/2024 Clinisync Result Encounter [facility] External Department Unsolicited Provider, Generic External Data 09/30/2024 Patient Outreach [facility] [address] [place] [address] Joi Zhang CASE ADVOCATE 09/29/2024 Patient Outreach [facility] [address] [place] [address] Joi Zhang, CASE ADVOCATE 09/28/2024 Clinisync Result Encounter [facility] External Department [...] Vaccination 03/29/2022 Pfizer Mane Cap SARS-CoV-2 Vaccination Pfizer Purple Cap SARS-CoV-2 Vaccination 024 Pneumococcal [...] 61 S tarted: 12/31/1965 Smokeless Tobacco: Never Tobacco [...] often do you attend chur ch or buddhism services? Never 12/31/2023 Do you belong to any clubs o r organizations such as jew groups, unions, fraternal or athletic groups, or [...] Health Questionnaire-2 Score 0 05/13/2024 [facility] of Occupat ional Health - Occupational Stress [...] any time in the past 12 m [facility], were you homeless or living [...] 05/10/2025 2:00 PM EST Office Visit [facility] [place] [address] [facility] 100 [place] [address] Stanley Toledo MD 112 [facility] 100 [place] [address] Health Maintenance Due Date Last Done Comments Influenza Vaccine (#1) 2025 , 03/26/2023, 05/20/2022, Additional history exists Medicare Annual Wellness (AWV) 05/13/2025 05/13/2024 , 05/12/2023 Pneumococcal Vaccine: 65+ Years Completed 4, 04/23/2021 Procedures Procedure Name Priority Date/Time Associated Diagnosis Comments TBH URINE T PROTEIN CREAT RATIO Routine 10/27/2024 11:40 AM EDT VITAMIN B12 Routine 10/27/2024 11:35 AM EDT METRO IRON AND TIBC Routine 10/27/2024 1 1:35 AM EDT ALL FOLIC ACID Routine 10/27/2024 11:35 AM EDT ALL MAGNESIUM Routine 10/27/2024 11:35 AM EDT ALL RENAL FUNCTION PANEL Routine 10/27/2024 11:35 AM EDT HP CBC WITH PLATELET NO DIFFERENTIAL Routine 10/27/2024 11:35 AM EDT MHPT CULT,URINE Routine 10/02/2024 3:43 PM EDT URINE CULTURE - [facility] Routine 10/01/2024 3:40 PM EDT URINE CULTURE - [facility] Routine 09/28/2024 6:08 PM EDT from Last 3 Months Results * (ABNORMAL) TBH URINE T PROTEIN CREAT RATIO (10/27/2024 11:40 AM EDT) TOTAL PROTEIN URINE RANDOM 54.5(H) <=11.9 mg/dL TBH CREATININE URINE RANDOM 77.97 20.00 - 300.00 mg/dL TBH PROTEIN CREATININE RATIO URINE 0.70 TBH 10/27/2024 11:4 0 AM EDT 10/27/2024 11:41 AM EDT Narrative CLINISYNC - 10/27/2024 12:15 PM EDT us Generic External Data Provider CLINISYNC F inal Result [facility] * VITAMIN B12 (10/27/2024 11:35 AM EDT) VITAMIN B12 593 232 - 1245 pg/mL TBH Comment: Performed at: - Lab[address] [id number] Lead Press Operator: Morgan Carpenter PhD, Phone: [phone] 10/27/2024 11:3 5 AM EDT 10/27/2024 11:41 AM EDT Narrative CLINISYNC - 10/28/2024 5:08 AM EDT us Generic External Data Provider LAB BLOOD ORDERAB LES Final Result Performing Organization Address City/[facility]/ZIP Co de Phone Number [facility] * (ABNORMAL) METRO IRON AND TIBC (10/27/2024 11:35 AM EDT) [facility] IRON 34.0(L) 65.0 - 175.0 ug/dL TBH TBH TOTAL IRON BINDING CAPACITY 269.0 250.0 - 450.0 ug/dL TB TBH PERCENT IRON SATURATION 12.6 % TBH 10/27/2024 11:3 5 AM EDT 10/27/2024 11:41 AM EDT Narrative CLINISYNC - 10/27/2024 1:44 PM EDT Generic External Data Provider CLINISYNC F inal Result Performing Organization Address [facility] Co de Phone Number [facility] * (ABNORMAL) [facility] CBC WITH PLATELET NO DIFFERENTIAL (10/27/2024 11:35 AM EDT) [facility] TB WBC 6.7 4.0 - 11.0 10 3/uL TBH TBH RBC 4.45(L) 4.70 - 6.10 10 6/uL TBH TBH HGB 10.7(L) 14.0 - 18.0 g/dL TBH TBH HCT 35.8(L) 42.0 - 54.0 % TBH TBH MCV 80.4 80.0 - 94.0 fL TBH TB MCH 24.0(L) 25.9 - 34.0 pg TBH TBH MCHC 29.9 29.9 - 35.2 g/dL TB TB RDW 18.7(H) 11.0 - 15.0 % TBH TBH PLT 235 150 - 450 10 3/uL TBH TBH MPV 9.6 9.5 - 13.5 fL TBH 10/27/2024 11:3 5 AM EDT 10/27/2024 11:41 AM EDT Narrative CLINISYNC - 10/27/2024 11:50 AM EDT Generic External Data Provider CLINISYNC F inal Result Performing Organization Address [facility] de Phone Number CLINISYNC TB * (ABNORMAL) ALL RENAL FUNCTION PANEL (10/27/2024 11:35 AM EDT) SODIUM 144 136 - 145 mmol/L TBH POTASSIUM 3.4(L) 3.5 - 5.1 mmol/L TBH CHLORIDE 104 98 - 107 mmol/L TBH CARBON DIOXIDE 29.3 21.0 - 32.0 mmol/L TBH ANION GAP 14.1 TBH GLUCOSE 95 74 - 106 mg/dL TBH BLOOD UREA NITROGEN 35.0(H) 7.0 - 18.0 mg/dL TBH CREATININE 2.17(H) 0.70 - 1.30 mg/dL TBH TBH EGFR-AF CHILEAN 36(L) >=60 mL/min/1.7 3m 2 TBH TBH EGFR-NON AF CHILEAN 29(L) >=60 mL/min/1.7 3m 2 TBH BUN CREATININE RATIO 16.1 TBH CALCIUM 8.7 8.5 - 10.1 mg/dL TBH PHOSPHORUS 3.4 2.6 - 4.7 mg/dL TBH ALBUMIN LEVEL 3.3(L) 3.4 - 5.0 g/dL TBH 10/27/2024 11:3 5 AM EDT 10/27/2024 11:41 AM EDT Narrative CLINISYNC - 10/27/2024 12:15 PM EDT Generic External Data Provider CLINISYNC F inal Result Performing Organization Address City/[facility] Co de Phone Number CLINISYNC TB * ALL MAGNESIUM (10/27/2024 11:35 AM EDT) MAGNESIUM 2.1 1.8 - 2.4 mg/dL TBH 10/27/2024 11:3 5 AM EDT 10/27/2024 11:41 AM EDT Narrative CLINISYNC - 10/27/2024 12:15 PM EDT Generic External Data Provider CLINISYNC F inal Result [facility] * ALL FOLIC ACID (10/27/2024 11:35 AM EDT) FOLATE 39.70 8.60 - 58.90 ng/mL TBH 10/27/2024 11:3 5 AM EDT 10/27/2024 11:41 AM EDT Narrative CLINISYNC - 10/27/2024 1:39 PM EDT Generic External Data Provider CLINISYNC F inal Result [facility] * (ABNORMAL) MHPT CULT,URINE (10/02/2024 3:43 PM [...] PM EDT Original Ordering Provider: WAQAR HADLEY Generic External Data Provider JERAMIEADOLFO Tuan inal Result THOMAS MHPT * (ABNORMAL) URINE CULTURE - [facility] (10/01/2024 3:40 PM EDT) Only the most recent of2 resultswithin the time period is included. [facility] URINE CULTURE - [facility] Urine Culture - [facility] Testing performed at [facility] URINE CULTURE - [facility] [address] [place] [address] [facility] URINE CULTURE - [facility] O:KLEOXY Isolated [facility] URINE CULTURE - FR Urine Culture - FR Clarence Count [facility] URINE CULTURE - FR >100,000 CFU/ml [facility] URINE CULTURE - FR O:ENTCLC Isolated [facility] URINE CULTURE - [facility] Urine Culture - FR Clarence Count [facility] URINE CULTURE - FR >100,000 CFU/ml [facility] URINE CULTURE - [facility] URINE CULTURE - [facility] Organism: 1.1 Antibiotic Interpretation RITESH Status TB URINE CULTURE - FR Amikacin S F(S) TB URINE CULTURE - [facility] Amoxicillin/Clavul anate S F(S) TB URINE CULTURE - [facility] Aztreonam S F(S) TB URINE CULTURE - [facility] Ceftazidime S F(S) TB URINE CULTURE - [facility] Ceftazidime/Avibac kwong S F(S) TB URINE CULTURE - [facility] Ceftolozane/Tazoba ctam S F(S) TB URINE CULTURE - [facility] Ciprofloxacin S F(S) TB URINE CULTURE - [facility] Ertapenem S F(S) TB URINE CULTURE - [facility] Gentamicin S F(S) TB URINE CULTURE - [facility] Levofloxacin S F(S) TB URINE CULTURE - [facility] Meropenem S F(S) TBH URINE CULTURE - [facility] Meropenem/Vaborbac kwong S F(S) TB URINE CULTURE - [facility] Nitrofurantoin S F(S) TB URINE CULTURE - [facility] Tetracycline S F(S) TB URINE CULTURE - [facility] Tigecycline S F(S) TB URINE CULTURE - [facility] Tobramycin S F(S) TB URINE CULTURE - [facility] Ampicillin/Sulbact am S [...] F(S) TBH URINE CULTURE - [facility] Nitrofurantoin I F(I) TBH URINE CULTURE - [facility] Tetracycline S F(S) TBH URINE CULTURE - [facility] Tigecycline S F(S) TBH URINE CULTURE - [facility] Tobramycin S F(S) TBH URINE CULTURE - [facility] Cefepime S F(S) TBH URINE CULTURE - [facility] Ceftriaxone R F(R) TBH URINE CULTURE - [facility] Cefuroxime R F(R) TBH URINE CULTURE - [facility] Piperacillin/Tazob actam I F(I) TBH URINE CULTURE - [facility] Trimethoprim/Sulfa S F(S) TBH 10/01/2024 3:40 PM EDT 10/01/2024 3:57 PM EDT Narrative CLINISYNC - 10/04/2024 3:49 PM EDT us Generic External Data Provider LAB BLOOD ORDERAB LES Final Result [facility] from Last 3 Months Insurance MEDICARE [employer] Care Teams Validation Consultant Relationship Specialty Start Date End Date Stanley Toledo MD [address] [place] [address] (Fax) PCP - ACO Reach 10/17/22 Stanley Toledo MD [address] [place] [address] (Fax) PCP - General Family Medicine 11/20/22 Joi Zhang LPN [address] [place] [address] 08/26/24
--- OUTSIDE RECORDS SUMMARY | 2024-12-23 13:18 | XMS_ITS | Encounter Summary ---
Author Organization [facility] Address [address] [place] [address] Phone Care Team Providers Care Fusing Machine Tender Name Role Phone Stanley Toledo MD Primary Care Provider [phone] Ruby Vickers MD Unavailable Encounter Details Date Type Department Care Team (Late st Contact Info) Description 05/22/[address] [facility] LEGACY [address] [place] [address] Conversion, Onbase Social History Tobacco Use Types [...] Description 03/29/2025 11:00 AM EST Office Visit [facility] [address] [facility] [address] [place] [address] Teo Stokes MD 7[address] [facility] [address], [address] [place], [place] [id number] Scheduled Orders Name Type Priority Associated Diagnoses Orde r Schedule OUTSIDE LAB SCAN Lab Ordered: 05/22/2022 documented as of this encounter Visit Diagnoses Not on filedocumented in this encounter Care Teams Fusing Machine Tender Relationship Specialty Start Date End Date Stanley Toledo MD [address] [place] [address] PCP - General 05/17/22 Ruby Vickers MD [address] [facility] [address] [place] [id number] Account Administrator Electrophysiology 10/04/24 documented as of this encounter
--- OUTSIDE RECORDS SUMMARY | 2024-12-23 13:18 | XMS_ITS | Encounter Summary ---
Author Organization [facility] Address [address] [place] [address] Care Team Providers Care Window Tinter Name Role Phone Stanley Toledo MD Unavailable [phone] Stanley Toledo MD Primary Care Provider + [phone] Dora Santiago GAS EXAMINER Unavailable Christina Goddard GAS EXAMINER Unavailable Unavailable Joi Zhang GAS EXAMINER Unavailable Encounter Details Date Type Department Care Team (Late Contact Info) Description 08/06/2023 Abstract [facility] Family Medicine [address] [place] [address] Stanley Toledo MD [address] [address] (Fax) Social History Tobacco Use Types Packs/Day [...] Visit [facility] 100 Family Medicine [address] [address] Stanley Toledo MD [address] [address] (Fax) documented as of this encounter Visit Diagnoses Not on filedocumented in this encounter Additional Health Concerns Assessment Noted Time PHQ-9 Depression Total Score: 3 05/12/20 23 1:00 PM EST documented as of this encounter Care Teams Window Tinter Relationship Specialty Start Date End Date Stanley Toledo MD [address] [place] [address] (Fax) PCP - ACO Reach 10/17/22 Stanley Toledo MD [address] [place] [address] PCP - General Family Medicine 11/20/22 Dora Santiago LPN [address] [place] [address] Licensed Practical Nurse Family Medicine 12/22/23 Christina Goddard LPN Licensed Practical Nurse Family Medicine 12/25/23 Joi Zhang LPN [address] [place] [address] 08/26/24 documented as of this encounter
--- OUTSIDE RECORDS SUMMARY | 2024-12-23 13:18 | XMS_ITS | Encounter Summary ---
Author Organization [facility] Address [address] [place] [address] Care Team Providers Care Toll Test Worker Name Role Phone Stanley Toledo MD Unavailable [phone] Stanley Toledo MD Primary Care Provider + [phone] Dora Santiago BENEFITS REPRESENTATIVE Unavailable Christina Goddard BENEFITS REPRESENTATIVE Unavailable Unavailable Joi Zhang BENEFITS REPRESENTATIVE Unavailable Encounter Details Date Type Department Care Team (Late Contact Info) Description 08/13/2023 Abstract [facility] Family Medicine [address] [place] [address] Stanley Toledo MD [address] [address] (Fax) Social History Tobacco Use Types Packs/Day [...] Visit [facility] Family Medicine [address] [address] Stanley Toledo MD [address] [address] (Fax) documented as of this encounter Visit Diagnoses Not on filedocumented in this encounter Additional Health Concerns Assessment Noted Time PHQ-9 Depression Total Score: 3 05/12/20 23 1:00 PM EST documented as of this encounter Care Teams Toll Test Worker Relationship Specialty Start Date End Date Stanley Toledo MD [address] [place] [address] (Fax) PCP - ACO Reach 10/17/22 Stanley oTledo MD [address] [place] [address] PCP - General Family Medicine 11/20/22 Dora Santiago LPN [address] [place] [address] Licensed Practical Nurse Family Medicine 12/22/23 Christina Goddard LPN Licensed Practical Nurse Family Medicine 12/25/23 Joi Zhang LPN [address] [place] [address] 08/26/24 documented as of this encounter
--- OUTSIDE RECORDS SUMMARY | 2024-12-23 13:18 | XMS_ITS | Encounter Summary ---
Author Organization [facility] Address [address] [place] [address] Care Team Providers Care Product Operations Associate Name Role Phone Stanley Toledo MD Unavailable [phone] Stanley Toledo MD Primary Care Provider + [phone] Joi Zhang LPN Unavailable Encounter Details Date Type Department Care Team (Late st Contact Info) Description 10/12/2024 Abstract [facility] Family Medicine 112 [facility] 100 [place] [address] Stanley Toledo MD 112 [facility] 100 [place] [address] (Fax) Social History Tobacco Use Types Packs/Day [...] How often do you attend chur or evangelical services? Never 12/31/2023 Do you belong to any clubs o r organizations such as worship groups, unions, fraternal or athletic groups, or [...] Patient Health Questionnaire-2 Score 0 05/13/2024 [facility] - Occupational [...] any time in the past 12 m [facility], were you homeless or living in a m[facility] (including now)? No 12/31/2023 Sex and Gender [...] [facility] 112 [facility] 100 [place] [address] Stanley Toledo MD 112 [facility] 100 [place] [address] documented as of this encounter Visit Diagnoses Not on filedocumented in this encounter Additional Health Concerns Assessment Noted Time PHQ-9 Depression Total Score: 3 05/13/20 2:00 PM EST A fall risk assessment has been complete d for the patient 12/31/2023 8:54 AM EDT documented as of this encounter Care Teams Product Operations Associate Relationship Specialty Start Date End Date Stanley Toledo MD 112 [facility] 100 [place] [address] PCP - ACO Reach 10/17/22 Stanley Toledo MD [address] [place] [address] PCP - General Family Medicine 11/20/22 Joi Zhang LPN [address] [place] [address] 08/26/24 documented as of this encounter
--- OUTSIDE RECORDS SUMMARY | 2024-12-23 13:18 | XMS_ITS | Encounter Summary ---
Author Organization [facility] Address [address] [place] [address] Care Team Providers Care Concession Cashier Name Role Phone Stanley Toledo MD Unavailable [phone] Stanley Toledo MD Primary Care Provider + [phone] Dora Santiago TOBACCO GRADER Unavailable Christina Goddard TOBACCO GRADER Unavailable Unavailable Joi Zhang TOBACCO GRADER Unavailable Encounter Details Date Type Department Care Team (Late Contact Info) Description 09/09/2023 Abstract [facility] Family Medicine [address] [place] [address] Stanley Toledo MD [address] [address] (Fax) Social History Tobacco Use Types Packs/Day [...] Visit [facility] Family Medicine [address] [address] Stanley Toledo MD [address] [address] (Fax) documented as of this encounter Visit Diagnoses Not on filedocumented in this encounter Additional Health Concerns Assessment Noted Time PHQ-9 Depression Total Score: 3 05/12/20 23 1:00 PM EST documented as of this encounter Care Teams Concession Cashier Relationship Specialty Start Date End Date Stanley Toldeo MD [address] [place] [address] (Fax) PCP - ACO Reach 10/17/22 Stanley Toledo MD [address] [place] [address] PCP - General Family Medicine 11/20/22 Dora Santiago LPN [address] [place] [address] Licensed Practical Nurse Family Medicine 12/22/23 Christina Goddard LPN Licensed Practical Nurse Family Medicine 12/25/23 Joi Zhang LPN [address] [place] [address] 08/26/24 documented as of this encounter
--- OUTSIDE RECORDS SUMMARY | 2024-12-23 13:18 | XMS_ITS | Encounter Summary ---
Author Organization [facility] Address [address] [place] [address] Care Team Providers Care Mail Processing Associate Name Role Phone Stanley Toledo MD Unavailable [phone] Stanley Toledo MD Primary Care Provider + [phone] Dora Santiago EDUCATIONAL INTERPRETER Unavailable Christina Goddard EDUCATIONAL INTERPRETER Unavailable Unavailable Joi Zhang EDUCATIONAL INTERPRETER Unavailable Encounter Details Date Type Department Care Team (Late Contact Info) Description 10/22/2023 Abstract [facility] Family Medicine [address] [place] [address] Stanley Toledo MD [address] [address] (Fax) Social History Tobacco Use Types Packs/Day [...] Visit [facility] Family Medicine [address] [address] Stanley Toledo MD [address] [address] (Fax) documented as of this encounter Visit Diagnoses Not on filedocumented in this encounter Additional Health Concerns Assessment Noted Time PHQ-9 Depression Total Score: 3 05/12/20 23 1:00 PM EST documented as of this encounter Care Teams Mail Processing Associate Relationship Specialty Start Date End Date Stanley Toledo MD [address] [place] [address] (Fax) PCP - ACO Reach 10/17/22 Stanley Toledo MD [address] [place] [address] PCP - General Family Medicine 11/20/22 Dora Santiago LPN [address] [place] [address] Licensed Practical Nurse Family Medicine 12/22/23 Christina Goddard LPN Licensed Practical Nurse Family Medicine 12/25/23 Joi Zhang LPN [address] [place] [address] 08/26/24 documented as of this encounter
--- OUTSIDE RECORDS SUMMARY | 2024-12-23 13:18 | XMS_ITS | Encounter Summary ---
Author Organization [facility] Address [address] [place] [address] Care Team Providers Care Cyber Incident Handler Name Role Phone Stanley Toledo MD Unavailable [phone] Stanley Toledo MD Primary Care Provider + [phone] Dora Santiago TWISTING MACHINE OPERATOR Unavailable Christina Goddard TWISTING MACHINE OPERATOR Unavailable Unavailable Joi Zhang TWISTING MACHINE OPERATOR Unavailable Encounter Details Date Type Department Care Team (Late Contact Info) Description 08/06/2023 Abstract [facility] Family Medicine [address] [place] [address] Stanley Toledo MD [address] [address] (Fax) Social History Tobacco Use Types Packs/Day [...] [facility] Family Medicine [address] [address] Stanley Toledo MD [address] [address] (Fax) documented as of this encounter Visit Diagnoses Not on filedocumented in this encounter Additional Health Concerns Assessment Noted Time PHQ-9 Depression Total Score: 3 05/12/20 23 1:00 PM EST documented as of this encounter Care Teams Cyber Incident Handler Relationship Specialty Start Date End Date Stanley Toledo MD [address] [place] [address] (Fax) PCP - ACO Reach 10/17/22 Stanley Toledo MD [address] [place] [address] PCP - General Family Medicine 11/20/22 Dora Santiago LPN [address] [place] [address] Licensed Practical Nurse Family Medicine 12/22/23 Christina Goddard LPN Licensed Practical Nurse Family Medicine 12/25/23 Joi Zhang LPN [address] [place] [address] 08/26/24 documented as of this encounter
--- OUTSIDE RECORDS SUMMARY | 2024-12-23 13:18 | XMS_ITS | Encounter Summary ---
Author Organization [facility] Address [address] [place] [address] Phone Care Team Providers Care Pitting Machine Operator Name Role Phone Stanley Toledo MD Primary Care Provider [phone] Ruby Vickers MD Unavailable Encounter Details Date Type Department Care Team (Late st Contact Info) Description 01/18/2024 Scanned Document [facility] [address] [place] [address] Scanning, Generic Provider Social History Tobacco Use [...] 03/29/2025 11:00 AM EST Office Visit [facility] 703 [facility] 250 [place] [address] Teo Stokes MD 703 [facility] 2, [address] [place] [address] documented as of this encounter Visit Diagnoses Not on filedocumented in this encounter Care Teams Pitting Machine Operator Relationship Specialty Start Date End Date Stanley Toledo MD [address] [place] [address] PCP - General 05/17/22 Ruby Vickers MD 125 [address] [facility], [facility] 305 [place] [address] Milk Route Deliverer Electrophysiology 10/04/24 documented as of this encounter
--- OUTSIDE RECORDS SUMMARY | 2024-12-23 13:18 | XMS_ITS | Encounter Summary ---
Author Organization [facility] Address [address] [place] [address] Phone Care Team Providers Care Miter Saw Operator Name Role Phone Stanley Toledo MD Primary Care Provider Ruby Vickers MD Unavailable Encounter Details Date Type Department Care Team (Late st Contact Info) Description 01/17/2024 Scanned Document [facility] [address] [place] [address] Scanning, Generic Provider Social History Tobacco Use [...] [facility] [address] [address] Teo Stokes MD 703 [facility] 2, [address] [place] [address] documented as of this encounter Procedures Procedure Name Priority Date/Time Associated Diagnosis Comments OUTSIDE IMAGING SCAN 01/17/2024 documented in this encounter Results * OUTSIDE IMAGING SCAN (01/17/2024) Anatomical Region Laterality Modality Other Narrative 01/17/2024 Ordered by an unspecified provider. us Generic Provider Scanning OUTSIDE SCAN Final Result documented in this encounter Visit Diagnoses Not on filedocumented in this encounter Care Teams Miter Saw Operator Relationship Specialty Start Date End Date Stanley Toledo MD [address] [place] [address] PCP - General 05/17/22 Ruby Vickers MD 125 [address] [facility] Medical Office Bldg, [address] [place] [address] Entry Level Civil Engineer Electrophysiology 10/04/24 documented as of this encounter
--- OUTSIDE RECORDS SUMMARY | 2024-12-23 13:18 | XMS_ITS | Encounter Summary ---
Author Organization [facility] Address [address] [place] [address] Care Team Providers Care Probation And Parole Officer Name Role Phone Stanley Toledo MD Unavailable [phone] Stanley Toledo MD Primary Care Provider + [phone] Dora Santiago AUTO CLUTCH REBUILDER Unavailable Christina Goddard AUTO CLUTCH REBUILDER Unavailable Unavailable Joi Zhang AUTO CLUTCH REBUILDER Unavailable Encounter Details Date Type Department Care Team (Late Contact Info) Description 07/02/2023 Abstract [facility] Family Medicine [address] [place] [address] Stanley Toledo MD [address] [address] (Fax) Social History Tobacco Use Types Packs/Day [...] Visit [facility] 100 Family Medicine [address] [address] Stanley Toledo MD [address] [address] (Fax) documented as of this encounter Visit Diagnoses Not on filedocumented in this encounter Additional Health Concerns Assessment Noted Time PHQ-9 Depression Total Score: 3 05/12/20 23 1:00 PM EST documented as of this encounter Care Teams Probation And Parole Officer Relationship Specialty Start Date End Date Stanley Toledo MD [address] [place] [address] (Fax) PCP - ACO Reach 10/17/22 Stanley Toledo MD [address] [place] [address] PCP - General Family Medicine 11/20/22 Dora Santiago LPN [address] [place] [address] Licensed Practical Nurse Family Medicine 12/22/23 Christina Goddard LPN Licensed Practical Nurse Family Medicine 12/25/23 Joi Zhang LPN [address] [place] [address] 08/26/24 documented as of this encounter
--- OUTSIDE RECORDS SUMMARY | 2024-12-23 13:18 | XMS_ITS | Encounter Summary ---
Author Organization [facility] Address [address] [place] [address] Care Team Providers Care Surgical Supplies Sterilizer Name Role Phone Stanley Toledo MD Unavailable [phone] Stanley Toledo MD Primary Care Provider + [phone] Joi Zhang LPN Unavailable Encounter Details Date Type Department Care Team (Late st Contact Info) Description 11/24/2024 Abstract [facility] 100 Family Medicine 112 [facility] 100 [place] [address] Stanley Toledo MD 112 [facility] 100 [place] [address] (Fax) Social History Tobacco Use Types Packs/Day [...] How often do you attend chur or faith services? Never 12/31/2023 Do you belong to [...] Recorded Patient Health Questionnaire-2 Score 0 05/13/2024 [facility] - Occupational [...] any time in the past 12 m [facility], were you homeless or living in a [...] 112 [facility] 100 [place] [address] Stanley Toledo MD 112 [facility] 100 [place] [address] documented as of this encounter Visit Diagnoses Not on filedocumented in this encounter Additional Health Concerns Assessment Noted Time PHQ-9 Depression Total Score: 3 05/13/20 2:00 PM EST A fall risk assessment has been complete d for the patient 12/31/2023 8:54 AM EDT documented as of this encounter Care Teams Surgical Supplies Sterilizer Relationship Specialty Start Date End Date tSanley Toledo MD 112 [facility] 100 [place] [address] PCP - ACO Reach 10/17/22 Stanley Toledo MD [address] [place] [address] PCP - General Family Medicine 11/20/22 Joi Zhang LPN [address] [place] [address] 08/26/24 documented as of this encounter
--- OUTSIDE RECORDS SUMMARY | 2024-12-23 13:19 | XMS_ITS | Encounter Summary ---
Author Organization [facility] Address [address] [place] [address] Phone Care Team Providers Care Hydrochloric Area Supervisor Name Role Phone Stanley Toledo MD Primary Care Provider Ruby Vickers MD Unavailable Encounter Details Date Type Department Care Team (Late st Contact Info) Description 05/12/2024 Scanned Document [facility] [address] [place] [phone] Scanning, Generic Provider Social History Tobacco Use [...] Description 03/29/2025 11:00 AM EST Office Visit [facility] 703 [facility] 250 [place] [address] Teo Stokes MD 703 [facility] 2, [address] [place] [address] documented as of this encounter [...] documented as of this encounter Care Teams Hydrochloric Area Supervisor Relationship Specialty Start Date End Date Stanley Toledo MD [address] [place] [address] PCP - General 05/17/22 Ruby Vickers MD 125 E [facility] Medical Office Bldg, [address] [place] [address] Open Hearth Melter Electrophysiology 10/04/24 documented as of this encounter
--- OUTSIDE RECORDS SUMMARY | 2024-12-23 13:19 | XMS_ITS | Encounter Summary ---
Author Organization [facility] Address [address] [place] [address] Phone Care Team Providers Care Brand Lead Name Role Phone Stanley Toledo MD Primary Care Provider Ruby Vickers MD Unavailable Encounter Details Date Type Department Care Team (Late st Contact Info) Description 05/20/2024 Scanned Document [facility] [address] [place] [address] Scanning, Generic Provider Social History [...] Office Visit [facility] 703 [facility] 250 [place] [address] Teo Stokes MD 703 [facility] 2, [address] [place] [address] documented as of this encounter [...] documented as of this encounter Care Teams Brand Lead Relationship Specialty Start Date End Date Stanley Toledo MD [address] [place] [address] PCP - General 05/17/22 Ruby Vickers MD 125 [address] [facility] Medical Office Bldg, [address] [place] [address] Wet Process Operator Electrophysiology 10/04/24 documented as of this encounter
--- OUTSIDE RECORDS SUMMARY | 2024-12-23 13:19 | XMS_ITS | Encounter Summary ---
Author Organization [facility] Address [address] [place] [address] Phone Care Team Providers Care Solution Lead Name Role Phone Stanley Toledo MD Primary Care Provider Ruby Vickers MD Unavailable Encounter Details Date Type Department Care Team (Late st Contact Info) Description 04/20/2024 Scanned Document [facility] [address] [place] [phone] Scanning, Generic Provider Social History Tobacco Use [...] 11:00 AM EST Office Visit [facility] 703 [facility] 250 [place] [address] Teo Stokes MD 703 [facility] 2, [address] [place] [address] documented as of this encounter [...] documented as of this encounter Care Teams Solution Lead Relationship Specialty Start Date End Date Stanley Toledo MD [address] [place] [address] PCP - General 05/17/22 Ruby Vickers MD 125 [address] [facility] Medical Office Bldg, [address] [place] [address] Aircraft Sales Representative Electrophysiology 10/04/24 documented as of this encounter
--- OUTSIDE RECORDS SUMMARY | 2024-12-23 13:19 | XMS_ITS | Encounter Summary ---
Author Organization [facility] Address [address] [place] [address] Care Team Providers Care Adult And Pediatric Neurologist Name Role Phone Stanley Toledo MD Unavailable [phone] Stanley Toledo MD Primary Care Provider + [phone] Joi Zhang LPN Unavailable Encounter Details Date Type Department Care Team (Late st Contact Info) Description 11/03/2024 Abstract [facility] 100 Family Medicine 112 [facility] 100 [place] [address] Stanley Toledo MD 112 [facility] 100 [place] [address] (Fax) Social History Tobacco Use Types Packs/Day [...] How often do you attend chur or church services? Never 12/31/2023 Do you belong to any clubs o r organizations such as mormon groups, unions, fraternal or athletic groups, or [...] Recorded Patient Health Questionnaire-2 Score 0 05/13/2024 [facility] - [...] any time in the past 12 m [facility], were you homeless or living in [...] Family Medicine 112 [facility] 100 [place] [address] Stanley Toledo MD 112 [facility] 100 [place] [address] documented as of this encounter Visit Diagnoses Not on filedocumented in this encounter Additional Health Concerns Assessment Noted Time PHQ-9 Depression Total Score: 3 05/13/20 2:00 PM EST A fall risk assessment has been complete d for the patient 12/31/2023 8:54 AM EDT documented as of this encounter Care Teams Adult And Pediatric Neurologist Relationship Specialty Start Date End Date Stanley Toledo MD 112 [facility] 100 [place] [address] PCP - ACO Reach 10/17/22 Stanley Toledo MD [address] [place] [address] PCP - General Family Medicine 11/20/22 Joi Zhang LPN [address] [place] [address] 08/26/24 documented as of this encounter
--- OUTSIDE RECORDS SUMMARY | 2024-12-23 13:19 | XMS_ITS | Encounter Summary ---
Author Organization [facility] Address [address] [place] [address] Phone Care Team Providers Care Administration Manager Name Role Phone Stanley Toledo MD Primary Care Provider Ruby Vickers MD Unavailable Encounter Details Date Type Department Care Team (Late st Contact Info) Description 08/02/2024 Scanned Document [facility] [address] [place] [address] Scanning, Generic Provider Social History Tobacco Use [...] Description 03/29/2025 11:00 AM EST Office Visit [facility] 703 [facility] 250 [place] [address] Teo Stokes MD 703 [facility] 2, [address] [place] [address] documented as of this encounter Visit Diagnoses Not on filedocumented in this encounter Additional Health Concerns Assessment Noted Time A fall risk assessment has been complete d for the patient 02/10/2024 9:14 AM EDT documented as of this encounter Care Teams Administration Manager Relationship Specialty Start Date End Date Stanley Toledo MD [address] [place] [address] PCP - General 05/17/22 Ruby Vickers MD 125 [address] [facility] Medical Office Bldg, [address] [place] [address] Cage Cashier Electrophysiology 10/04/24 documented as of this encounter
--- OUTSIDE RECORDS SUMMARY | 2024-12-23 13:19 | XMS_ITS | Encounter Summary ---
Author Organization [facility] Address [address] [place] [address] Phone Care Team Providers Care Electric Fork Operator Name Role Phone Stanley Toledo MD Primary Care Provider Ruby Vickers MD Unavailable Encounter Details Date Type Department Care Team (Late st Contact Info) Description 04/05/2024 Scanned Document [facility] [address] [place] [address] Scanning, Generic Provider Social History Tobacco Use [...] 11:00 AM EST Office [facility] 703 [facility] 250 [place] [address] Teo Stokes MD 703 [facility] 2, [address] [place] [address] documented as of this encounter [...] documented as of this encounter Care Teams Electric Fork Operator Relationship Specialty Start Date End Date Stanley Toledo MD [address] [place] [address] PCP - General 05/17/22 Ruby Vickers MD 125 E [facility] Medical Office Bldg, [address] [place] [address] Physical Sciences Professor Electrophysiology 10/04/24 documented as of this encounter
--- OUTSIDE RECORDS SUMMARY | 2024-12-23 13:19 | XMS_ITS | Encounter Summary ---
Author Organization [facility] Address [address] [place] [address] Phone Care Team Providers Care Whizzer Name Role Phone Stanley Toledo MD Primary Care Provider Ruyb Vickers MD Unavailable Encounter Details Date Type Department Care Team (Late st Contact Info) Description 04/14/2024 Scanned Document [facility] [address] [place] [address] Scanning, Generic Provider Social History Tobacco Use [...] Description 03/29/2025 11:00 AM EST Office Visit [facility] 703 [facility] 250 [place] [address] Teo Stokes MD 703 [facility] 2, [address] [place] [address] documented as of this encounter [...] documented as of this encounter Care Teams Whizzer Relationship Specialty Start Date End Date Stanley Toledo MD [address] [place] [address] PCP - General 05/17/22 Rbuy Vickers MD 125 E [facility] Medical Office Bldg, [address] [place] [address] Mold Tooler Electrophysiology 10/04/24 documented as of this encounter
--- OUTSIDE RECORDS SUMMARY | 2024-12-23 13:19 | XMS_ITS | Encounter Summary ---
Author Organization [facility] Address [address] [place] [address] Phone Care Team Providers Care Electrical Equipment Tester Name Role Phone Stanley Toledo MD Primary Care Provider Ruby Vickers MD Unavailable Encounter Details Date Type Department Care Team (Late st Contact Info) Description 07/28/2024 Scanned Document [facility] [address] [place] [address] Scanning, Generic Provider Social History [...] EST Office Visit [facility] 703 [facility] 250 [place] [address] Teo Stokes MD 703 [facility] 2, [address] [place] [address] documented as of this encounter [...] documented as of this encounter Care Teams Electrical Equipment Tester Relationship Specialty Start Date End Date Stanley Toledo MD [address] [place] [address] PCP - General 05/17/22 Ruby Vickers MD [address] [facility] Medical Office Bldg, [address] [place] [address] Forensic Scientist Electrophysiology 10/04/24 documented as of this encounter
--- OUTSIDE RECORDS SUMMARY | 2024-12-23 13:19 | XMS_ITS | Encounter Summary ---
Author Organization [facility] Address [address] [place] [address] Phone Care Team Providers Care Research Clerk Name Role Phone Stanley Toledo MD Primary Care Provider Ruby Vickers MD Unavailable Encounter Details Date Type Department Care Team (Late st Contact Info) Description 06/17/2024 Scanned Document [facility] [address] [place] [address] Scanning, Generic Provider Social History [...] Description 03/29/2025 11:00 AM EST Office Visit [facility] 703 [facility] 250 [place] [address] Teo Stokes MD 703 [facility] 2, [address] [place] [address] documented as of this encounter [...] documented as of this encounter Care Teams Research Clerk Relationship Specialty Start Date End Date Stanley Toledo MD [address] [place] [address] PCP - General 05/17/22 Ruby Vickers MD [address] [facility] Medical Office Bldg, [address] [place] [address] Billing Typist Electrophysiology 10/04/24 documented as of this encounter
--- OUTSIDE RECORDS SUMMARY | 2024-12-23 13:19 | XMS_ITS | Encounter Summary ---
Author Organization [facility] Address [address] [place] [address] Care Team Providers Care Trauma Coordinator Name Role Phone Stanley Toledo MD Unavailable [phone] Stanley Toledo MD Primary Care Provider + [phone] Joi Zhang LPN Unavailable Encounter Details Date Type Department Care Team (Late st Contact Info) Description 11/01/2024 Abstract [facility] Family [facility] 112 [facility] 100 [place] [address] Stanley Toledo MD 112 [facility] 100 [place] [address] (Fax) Social History Tobacco Use Types Packs/Day [...] time in the past 12 m [facility], were you homeless or living in a [...] 112 [facility] 100 [place] [address] Stanley Toledo MD 112 [facility] 100 [place] [address] documented as of this encounter Visit Diagnoses Not on filedocumented in this encounter Additional Health Concerns Assessment Noted Time PHQ-9 Depression Total Score: 3 05/13/20 2:00 PM EST A fall risk assessment has been complete d for the patient 12/31/2023 8:54 AM EDT documented as of this encounter Care Teams Trauma Coordinator Relationship Specialty Start Date End Date Stanley Toledo MD 112 [facility] 100 [place] [address] PCP - ACO Reach 10/17/22 Stanley Toledo MD [address] [place] [address] PCP - General Family Medicine 11/20/22 Joi Zhang LPN [address] [place] [address] 08/26/24 documented as of this encounter
--- OUTSIDE RECORDS SUMMARY | 2024-12-23 13:19 | XMS_ITS | Encounter Summary ---
Author Organization [facility] Address [address] [place] [address] Phone Care Team Providers Care Moth Proofer Name Role Phone Stanley Toledo MD Primary Care Provider Ruby Vickers MD Unavailable Encounter Details Date Type Department Care Team (Late st Contact Info) Description 07/02/2024 Scanned Document [facility] [address] [place] [id number] Scanning, Generic Provider Social History Tobacco Use [...] [facility] 703 [facility] 250 [place] [address] Teo Stokes MD 703 [facility] 2, [address] [place] [address] documented as of this encounter [...] documented as of this encounter Care Teams Moth Proofer Relationship Specialty Start Date End Date Stanley Toledo MD [address] [place] [address] PCP - General 05/17/22 Ruby Vickers MD [address] [facility] Medical Office Bldg, [address] [place] [address] Warp Yarn Sorter Electrophysiology 10/04/24 documented as of this encounter
--- OUTSIDE RECORDS SUMMARY | 2024-12-23 13:19 | XMS_ITS | Encounter Summary ---
Author Organization [facility] Address [address] [place] [address] Phone Care Team Providers Care Bottle Filler Name Role Phone Stanley Toledo MD Primary Care Provider Ruby Vickers MD Unavailable Encounter Details Date Type Department Care Team (Late st Contact Info) Description 08/10/2024 Scanned Document [facility] [address] [place] [address] Scanning, Generic Provider Social History [...] Office Visit [facility] 703 [facility] 250 [place] [address] Teo Stokes MD 703 [facility] 2, [address] [place] [address] documented as of this encounter [...] documented as of this encounter Care Teams Bottle Filler Relationship Specialty Start Date End Date Stanley Toledo MD [address] [place] [address] PCP - General 05/17/22 Ruby Vickers MD 125 [address] [facility] Medical Office Bldg, [address] [place] [address] Meatman Electrophysiology 10/04/24 documented as of this encounter
--- OUTSIDE RECORDS SUMMARY | 2024-12-23 13:19 | XMS_ITS | Encounter Summary ---
Author Organization [facility] Address [address] [place] [address] Phone Care Team Providers Care Tetryl Nitrator Operator Name Role Phone Stanley Toledo MD Primary Care Provider Ruby Vickers MD Unavailable Encounter Details Date Type Department Care Team (Late st Contact Info) Description 06/09/2024 Scanned Document [facility] [address] [place] [address] Scanning, Generic Provider Social History [...] Description 03/29/2025 11:00 AM EST Office Visit [facility] 703 [facility] 250 [place] [address] Teo Stokes MD 703 [facility] 2, [address] [place] [address] documented as of this encounter [...] documented as of this encounter Care Teams Tetryl Nitrator Operator Relationship Specialty Start Date End Date Stanley Toledo MD [address] [place] [address] PCP - General 05/17/22 Ruby Vickers MD 125 [address] [facility] Medical Office Bldg, [address] [place] [address] Spooling Operator Electrophysiology 10/04/24 documented as of this encounter
--- OUTSIDE RECORDS SUMMARY | 2024-12-23 13:19 | XMS_ITS | Encounter Summary ---
Author Organization [facility] Address [address] [place] [address] Care Team Providers Care Chain Carrier Name Role Phone Stanley Toledo MD Unavailable [phone] Stanley Toledo MD Primary Care Provider + [phone] Joi Zhang LPN Unavailable Encounter Details Date Type Department Care Team (Late st Contact Info) Description 11/03/2024 Abstract [facility] Family Medicine 112 [facility] 100 [place] [address] Stanley [place] MD 112 [facility] 100 [place] [address] (Fax) Social History Tobacco Use Types Packs/Day [...] How often do you attend chur or presybeterian services? Never 12/31/2023 Do you belong to any clubs o r organizations such as tenriism groups, unions, fraternal or athletic groups, or [...] 0 05/13/2024 [facility] - [...] No 12/31/2023 Housing Stability Vital Sign Answer Lafredo e Recorded In the last 12 months, [...] Visit [facility] 112 [facility] 100 [place] [address] Stanley Toledo MD 112 [facility] 100 [place] [address] documented as of this encounter Visit Diagnoses Not on filedocumented in this encounter Additional Health Concerns Assessment Noted Time PHQ-9 Depression Total Score: 3 05/13/20 2:00 PM EST A fall risk assessment has been complete d for the patient 12/31/2023 8:54 AM EDT documented as of this encounter Care Teams Chain Carrier Relationship Specialty Start Date End Date Stanley [place] MD 112 [facility] 100 [place] [address] PCP - ACO Reach 10/17/22 Stanley Toledo MD [address] [place] [address] PCP - General Family Medicine 11/20/22 Joi Zhang LPN [address] [place] [address] 08/26/24 documented as of this encounter
--- OUTSIDE RECORDS SUMMARY | 2024-12-23 13:19 | XMS_ITS | Encounter Summary ---
Author Organization [facility] Address [address] [place] [address] Phone Care Team Providers Care Exterior Work Helper Name Role Phone Stanley Toledo MD Primary Care Provider Ruby Vickers MD Unavailable Encounter Details Date Type Department Care Team (Late st Contact Info) Description 07/14/2024 Scanned Document [facility] [address] [place] [phone] Scanning, Generic Provider Social History Tobacco Use [...] 11:00 AM EST Office Visit [facility] 703 [facility] 250 [place] [address] Teo Stokes MD 703 [facility] 2, [address] [place] [address] documented as of this encounter [...] documented as of this encounter Care Teams Exterior Work Helper Relationship Specialty Start Date End Date Stanley Toledo MD [address] [place] [address] PCP - General 05/17/22 Ruby Vickers MD 125 [address] [facility] Medical Office Bldg, [address] [place] [address] Chrome Worker Electrophysiology 10/04/24 documented as of this encounter
--- OUTSIDE RECORDS SUMMARY | 2024-12-23 13:19 | XMS_ITS | Encounter Summary ---
Author Organization [facility] Address [address] [place] [address] Phone Care Team Providers Care Meat And Seafood Manager Name Role Phone Stanley Toledo MD Primary Care Provider Ruby Vickers MD Unavailable Encounter Details Date Type Department Care Team (Late st Contact Info) Description 07/21/2024 Scanned Document [facility] [address] [place] [phone] Scanning, Generic Provider Social History Tobacco Use [...] 11:00 AM EST Office Visit [facility] 703 [facility] 250 [place] [address] Teo Stokes MD 703 [facility] 2, [address] [place] [address] documented as of this encounter [...] documented as of this encounter Care Teams Meat And Seafood Manager Relationship Specialty Start Date End Date Stanley Toledo MD [address] [place] [address] PCP - General 05/17/22 Ruby Vickers MD 125 [address] [facility] Medical Office Bldg, [address] [place] [address] Gate Manager Electrophysiology 10/04/24 documented as of this encounter
--- OUTSIDE RECORDS SUMMARY | 2024-12-23 13:19 | XMS_ITS | Encounter Summary ---
Author Organization [facility] Address [address] [place] [address] Phone Care Team Providers Care Nurse Practitioner Per Diem Name Role Phone Stanley [place] MD Primary Care Provider [phone] Ruby Vickers MD Unavailable Encounter Details Date Type Department Care Team (Late st Contact Info) Description 06/29/2024 Scanned Document [facility] [address] [place] [phone] Scanning, Generic Provider Social History Tobacco Use [...] 03/29/2025 11:00 AM EST Office Visit [facility] 703 [facility] 250 [place] [address] Teo Stokes MD 703 [facility] 2, [address] [place] [address] documented as of this encounter [...] documented as of this encounter Care Teams Nurse Practitioner Per Diem Relationship Specialty Start Date End Date Stanley [place] MD [address] [place] [address] PCP - General 05/17/22 Ruby Vickers MD 125 [address] [facility] Medical Office Bldg, [address] [place] [address] Honing Machine Operator Electrophysiology 10/04/24 documented as of this encounter
--- OUTSIDE RECORDS SUMMARY | 2024-12-23 13:19 | XMS_ITS | Encounter Summary ---
Author Organization [facility] Address [address] [place] [address] Phone Care Team Providers Care Technician Helper Instrument Name Role Phone Stanley Toledo MD Primary Care Provider Ruby Vickers MD Unavailable Encounter Details Date Type Department Care Team (Late st Contact Info) Description 07/13/2024 Scanned Document [facility] [address] [place] [address] Scanning, Generic Provider Social History Tobacco Use [...] 11:00 AM EST Office Visit [facility] 703 [facility] 250 [place] [address] Teo Stokes MD 703 [facility] 2, [address] [place] [address] documented as of this encounter [...] documented as of this encounter Care Teams Technician Helper Instrument Relationship Specialty Start Date End Date Stanley Toledo MD [address] [place] [address] PCP - General 05/17/22 Ruby Vickers MD 125 E [facility] Medical Office Bldg, [address] [place] [address] Technical Service Representative Electrophysiology 10/04/24 documented as of this encounter
--- OUTSIDE RECORDS SUMMARY | 2024-12-23 13:19 | XMS_ITS | Encounter Summary ---
Author Organization [facility] Address [address] [place] [address] Phone Care Team Providers Care Machine Cleaner Name Role Phone Stanley Toledo MD Primary Care Provider Ruby Vickers MD Unavailable Encounter Details Date Type Department Care Team (Late st Contact Info) Description 07/07/2024 Scanned Document [facility] [address] [place] [address] Scanning, Generic Provider Social History Tobacco Use [...] Description 03/29/2025 11:00 AM EST Office Visit [facility] 703 [facility] 250 [place] [address] Teo Stokes MD 703 [facility] 2, [address] [place] [address] documented as of this encounter [...] documented as of this encounter Care Teams Machine Cleaner Relationship Specialty Start Date End Date Stanley Toledo MD [address] [place] [address] PCP - General 05/17/22 Ruby Vickers MD 125 E [facility] Medical Office Bldg, [address] [place] [address] Street Contractor Electrophysiology 10/04/24 documented as of this encounter
--- OUTSIDE RECORDS SUMMARY | 2024-12-23 13:19 | XMS_ITS | Encounter Summary ---
Author Organization [facility] Address [address] [place] [address] Phone Care Team Providers Care Punch Machine Hand Name Role Phone Stanley [place]edo MD Primary Care Provider Ruby Vickers MD Unavailable Encounter Details Date Type Department Care Team (Late st Contact Info) Description 05/27/2024 Scanned Document [facility] [address] [place] [address] Scanning, Generic Provider Social History [...] Description 03/29/2025 11:00 AM EST Office Visit [facility] 703 [facility] 250 [place] [address] Teo Stokes MD 703 [facility] 2, [address] [place] [address] documented as of this encounter [...] documented as of this encounter Care Teams Punch Machine Hand Relationship Specialty Start Date End Date Stanley [place] MD [address] [place] [address] PCP - General 05/17/22 Ruby Vickers MD 125 [address] [facility] Medical Office Bldg, [address] [place] [address] Crop Farm Workers Electrophysiology 10/04/24 documented as of this encounter
--- NOTE | 2024-12-23 13:43 | PM.WCHP ---
Wound Care H&P: HPI History of Present Illness Narrative: The patient is an 79-year-old gentleman who presents for routine toenail care. He has history of CHF and is on long-term Coumadin. His toenails are very thick and dystrophic and he is unable to clip them at home. [facility] Medical History (Updated 12/23/24 @ 13:46 by HUMA Mcdonald) Bladder cancer ?C67.9 - Malignant neoplasm of bladder, unspecified (ICD-10) Social History Smoking status: Current every day smoker Little interest or pleasure in doing things: not at all Feeling down, depressed, or hopeless: not at all Meds Home Medications and Allergies Home Medications ?Medication ?Instructions ?Recorded ?Confirmed ?Type albuterol sulfate 90 mcg/actuation 1 inh inhalation Q6H PRN 04/13/23 10/01/24 History aerosol inhaler bronchospasm amiodarone 200 mg tablet 200 mg PO Q12H 04/28/24 10/01/24 History atorvastatin 80 mg tablet 80 mg PO QPM 04/28/24 10/01/24 History clopidogrel 75 mg tablet 75 mg PO DAILY 04/28/24 10/01/24 History furosemide 40 mg tablet (Lasix) 40 mg PO DAILY 04/28/24 10/01/24 History nitroglycerin 0.4 mg sublingual 0.4 mg sublingual Q5M PRN chest 04/28/24 10/01/24 History tablet pain warfarin 2 mg tablet 2 mg PO DAILY 04/28/24 10/01/24 History methimazole 5 mg tablet 5 mg PO BID 06/17/24 10/01/24 History aripiprazole 2 mg tablet 1 mg PO .QHS 10/01/24 10/01/24 History cephalexin 250 mg capsule 250 mg PO .MWF 10/01/24 10/01/24 History ferrous sulfate 325 mg (65 mg 325 mg PO BID 10/01/24 10/01/24 History iron) tablet metoprolol succinate 25 mg 25 mg PO .QD 10/01/24 10/01/24 History tablet,extended release 24 hr potassium chloride 20 mEq 20 meq PO .QD 10/01/24 10/01/24 History tablet,extended release(part/cryst) Allergies Allergy/AdvReac Type Severity Reaction Status Date / Time No Known Drug Allergies Allergy Verified 10/01/24 15:03 Exam Narrative: Exam Narrative: Derm: Toenails 1 through 10 are thickened, elongated, and painful.? The great toenails are extremely thick and dystrophic. No evidence of paronychia.? Skin is diffusely dry, thin, and atrophic.? Hemosiderin staining present on the lower legs bilaterally. Vascular: PT pulses are nonpalpable bilaterally.? DP pulse is 1/4 bilaterally.? Capillary refill is less than 3 seconds to all toes. Digital hair is absent bilaterally. Distal feet are cool to the touch. Neuro: Vibratory sensation is absent bilaterally.? Achilles deep tendon reflex is 0+ bilaterally.? Protective sensation was tested with a monofilament and is present in 3/5 areas tested on the right and 3/5 areas tested on the left.? Musculoskeletal: No gross deformity.? Strength 5/5 in all planes bilaterally Assessment and Plan Assessment and Plan (1) Tinea unguium: (2) Onychogryphosis: (3) Diminished pulses in lower extremity: (4) Disorder of nail due to another disorder: (5) Unsteady gait when walking: (6) Bilateral lower extremity edema: Plan Routine toenail care performed. Follow-up in 3 months. Acute Procedures Podiatry Nail Debridement Class B Findings Absent posterior tibial pulse: bilateral Advanced trophic changes as evidenced by any three of the following: decreased hair growth, nail changes (thickening), pigmentary changes (discoloring) and skin texture (thin or shiny) Class C Findings Claudication: No Temperature changes: Yes Edema: Yes Nail debridement paresthesia (abnormal spontaneous sensations in the feet): No Burning: No Qualifies If: Qualifiers If:: A patient qualifies for nail debridement if they have: 1 class A finding (Q7) 2 class B findings (Q8) OR 1 class B & 2 class C findings in addition to a primary condition (Q9) Nail Procedure Nail Procedure Time out: Yes Nail procedure: other (Toenail debridement) Number of affected nails: 10 Location (toes): left and right Procedure successful: Yes Patient tolerated procedure: well and no complications Additional comments: Toenails 1 through 10 were sharply debrided with nail nippers without incident. The great toenails bilaterally were debulked using a Dremel tool.
== END 2024-12-23 13:14 | disposition home or self-care (01) ==
LOC: WC 13:14
PROVIDERS: PCP Family Medicine; Visit Provider Physician Assistant
DX: B35.1 Tinea unguium (principal); L60.2 Onychogryphosis; I70.213 Atherosclerosis of native arteries of extremities with intermittent claudication, bilateral legs; R26.81 Unsteadiness on feet; R60.0 Localized edema; L60.8 Other nail disorders
CPT/HCPCS: 11721

== ENCOUNTER 2024-12-24 02:08 | Outpatient (RCR) | payer MEDICARE, OTHER, SELFPAY | END 2025-01-20 13:14 | disposition home or self-care (01) | LOC: MM 02:08 | PROVIDERS: PCP Family Medicine; Visit Provider Internal Medicine | DX: Z51.81 Encounter for therapeutic drug level monitoring (principal); Z79.01 Long term (current) use of anticoagulants; I48.0 Paroxysmal atrial fibrillation | CPT/HCPCS: 85610; G0463 ==

== ENCOUNTER 2025-01-24 00:41 | Outpatient (RCR) | payer MEDICARE, OTHER, SELFPAY | END 2025-02-22 15:27 | disposition home or self-care (01) | LOC: MM 00:41 | PROVIDERS: PCP Family Medicine; Visit Provider Internal Medicine | DX: Z51.81 Encounter for therapeutic drug level monitoring (principal); Z79.01 Long term (current) use of anticoagulants; I48.0 Paroxysmal atrial fibrillation | CPT/HCPCS: 85610; G0463 ==

== ENCOUNTER 2025-02-02 12:48 | Outpatient (OUT) | payer MEDICARE, OTHER, SELFPAY ==
--- OUTSIDE RECORDS SUMMARY | 2025-02-02 13:01 | XMS_ITS | CCD ---
Author Organization [facility] Care Team Providers Care It Application Administrator Name Role Phone Stanley Emerson Unavailable Unavailable Unavailable STANLEY EMERSON Primary Care Physician Unavail able MD Stanley Emerson Primary Care Provider MD Taz Barnes Admit Provider MD Margarito Valentine Other Provider MD Janice Gonzalez Other Provider DO Bernabe Cr Attending Provider [phone] MD Margarito Valentine Attending Provider MD Margarito Valentine Admit Provider Preston Griffin Unavailable Margarito Valentine Unavailable MOMO Omalley [...] Hemeyer, Dr. Stanley Mercado Primary Care Unava ilayo Al, Dr. Teo Poon Attending Araceli vailable Divya, Dr. Teo Poon Attending Araceli vailable Idania, Dr. Stanley Mercado Primary Care Araceliva MD Stanley Gomez Primary Care Provider [phone] MD Preston Griffin Attending Provider [phone] MD Teo Al Referring Provider [phone] MD Stanley Emerson Primary Care Provider [phone] MD Margarito Valentine Attending Provider MD Stanley Emerson Primary Care Provider [phone] MD Teo Al Attending Provider [phone] MD Willy Lambert Attending Provider [phone] DO Nas Pruett Admit Provider [phone] DO Nas Pruett Attending Provider MD Myesha Feliz Other Provider MD Rogelio Rai Other Provider WATSON Truong Other Provider DO Mckay Yeboah Jr Other Provider [phone] MD Ryley Hoyt Other Provider [phone] ROCIO Randle Other Provider Unavailable ROCIO Alvarez [...] Other Provider DO Jakob Lomax Other Provider [phone] MD Nick Ken Other Provider WATSON Beard Other Provider WATSON Man Other Provider MD Joaquim Mayo Other Provider MD Shane Durham Other Provider [phone] DO Tico Whitehead Other Provider DO Alonso Maher Other Provider MD Humberto Bonds P Other Provider MD Chi Smith Other Provider WATSON Najera Other Provider MD Dana Haddad Other Provider MD Emmanuel Silverman Other Provider ROCIO Moore Other Provider Unavailable Stanley Emerson MD Primary Care Provider [phone] Stanley Emerson MD Unavailable [phone] Stanley Emerson MD Primary Care Provider [phone] Black PROPERTY CLAIM REP, Dora Unavailable WATSON Bailey Attending Provider [phone] WATSON Truong Other Provider [phone] Stanley Emerson MD Unavailable Stanley Emerson MD Primary Care Provider [phone] Stanley Emerson MD Unavailable [phone] Stanley Emerson MD Primary Care Provider [phone] Stanley Emerson MD Primary Care Provider Stanley Emerson MD Primary Care Provider Teo Al MD Attending Provider [phone] Blanca Boles Attending Unavailable Katia JACOBS Attending Unavailable MOMO OMALLEY Attending Unavailab MOMO Kruger Attending Unavailab MOMO Kruger Attending Unavailab Katia Fong Admitting Unavailable Katia JACOBS Attending Unavailable Fabi Gomez Attending Unavailable Zhang PROPERTY CLAIM REP, Joi Unavailable Unavailable Black PROPERTY CLAIM REP, Dora Unavailable Talya Bo MD Attending Provider Stanley Emerson MD Primary Care Provider [phone] Katia JACOBS Attending Unavailable Fabi Gomez Attending Unavailable Elvi Blanca Jomar Attending Unavailable Blanca Boles Attending Unavailable Fabi Gomez Attending Unavailable Katia JACOBS Attending Unavailable Katia JACOBS Admitting Unavailable Katia JCAOBS Attending Unavailable CHRISSY PLATA Referring Unavailable HEMECHREY, EDRENÉ J Primary Care Unavailable RAFAELSERVANDO S Attending Unavailable HEMECHERY, EDRENÉ J Primary Care Unavailable RAFAELSERVANDO S Admitting Unavailable SERVANDO PEREZ S Attending Unavailable FILI GANDARA Consulting Unavailable CAROLINA LEWIS Referring Unavailable FROY RAZO Consulting Unavailable GOLDY BAPTISTE Consulting Unavailable HEATHER ALVAREZ Consulting Unavailable MORIS BARRAGAN Consulting Unavailable Ruby Montana MD Unavailable Robe Hansen DO Attending Provider [phone] TEO AL Referring Unavailable IDANIA, STANLEY Rich Primary Care Unavailable RUBY MONTANA Admitting Unavailable RUBY MONTANA Attending Unavailable IDANIA, STANLEY Rich Primary Care Unavailable ALTEO M Attending Unavailable STANLEY EMERSON Primary Care Unavailable TEO AL M Referring Unavailable HEMECHERY, STANLEY Rich Primary Care Unavailable TEO AL M Attending Unavailable TEO AL M Referring Unavailable HEMECHERY, STANLEY J Primary Care Unavailable ALTEO M Attending Unavailable AL, CURRAN M Referring Unavailable IDANIA, STANLEY Rich Primary Care Unavailable TEO AL Attending Unavailable IDANIA, STANLEY J Primary Care Unavailable RUBY MONTANA Attending Unavailable AL, CURRAN M Referring Unavailable IDANIA, STANLEY J Primary Care Unavailable Stanley Emerson MD Primary Care Provider [phone] Margarito Valentine MD Attending Provider [phone] Joi Zhang LPN Unavailable Idania, Stanley Rich Primary Care Unavailable Margarito Valentine Admitting UnavailMargarito Lara Attending Unavailabl e Stanley Emerson Primary Care Unavailable Margarito Valentine Attending UnavailMargarito Lara Admitting Unavailabl e Teo Al Admitting Unavailable Teo Al Attending Unavailable Idania, Stanley Rich Primary Care Unavailable Nas Pruett Attending Unavailable Hemechery, Stanley Rich Primary Care Unavailable Ledy Randle Consulting Unavailable Nas Pruett Admitting Unavailable Thu Alvarez [...] Watkins Consulting Unavailable Jakob Lomax Consulting Unavailable DaromarNick Consulting Unavailable Yaz Beard Consulting Unavailable Venus Man Consulting Unavailable Alaadrianaad Alasergo Consulting Unavailable Shane Durham Consulting Unavailable Tico Whitehead Consulting Unavailable Alonso Maher Consulting Unavailable Humberto Bonds Consulting Unavailable Chi Simth Consulting Unava ilable Chen Najera Consulting Unavailable Dana Haddad Consulting Unavailable Emmanuel Silverman Consulting Unavailable Monisha Moore Consulting Unavailable Myesha Feliz Consulting Unavailable Rogelio Rai Consulting Unavailable Heaven Truong Consulting Unavailable Mckay Yeboah Jr Consulting UnavailRyley Parra Consulting Unavaila Stanley Clifton Primary Care Unavailable Willy Lambert Attending Unavailable Willy Lambert Admitting Unavailable Stanley Emerson Primary Care Unavailable Rosalie Bailey Attending Unavailable Rosalie Bailey Admitting Unavailable Teo Al Attending Unavailable Stanley Emerson Primary Care Unavailable Teo Al Admitting Unavailable Robe Hansen Attending Unavailable Pay, Robe Admitting Unavailable Talya Bo Attending Unavailable Talya Bo Admitting Unavailable Stanley Emerson Primary Care Unavailable Rob Peña Attending UnavailRob Burroughs Admitting Unavailab roula EMERSON, STANLEY Rich Attending Unavailable IDANIA, STANLEY Rich Attending Unavailable IDANIA, STANLEY Rich Attending Unavailable IADNIA, STANLEY Rich Attending Unavailable IDANIA, STANLEY Rich Attending Unavailable IDANIA, STANLEY Rich Attending Unavailable IDANIA, STANLEY Rich Attending Unavailable IDANIA, STANLEY Rich Attending Unavailable IDANIA, STANLEY Rich Attending Unavailable Fabi Gomez Attending Unavailable MOMO OMALLEY Attending UnavailKatia Saldana Admitting Unavailable Katia JACOBS Attending Unavailable Katia JACOBS Attending Unavailable Eboni Anderson Attending Unavailable Eboni Anderson Attending Unavailable Blanca Boles Attending Unavailable Eboni Anderson Attending Unavailable Allergies Allergy Classification Reported Allergen(s) Allergy Type Date of Onset Reaction(s) Facility (4 sources) No Known Medication Allergies; Translations: [No Known Medication Allergies] Propensity to adverse reactions (disorder) [facility] Repository Medications Current Medications Medication Drug Class(es) Dates Sig (Normalized) Sig (Original) Acetaminophen (4 sources) Start: 10-02-2024 acetaminophen (TYLENOL) tablet 650 mg take 2 tablets by mo uth every eight hours Acetaminophen ER 650 MG 2 tablets as nee ded Orally every 8 hrs Active acetaminophen 325 mg / HYDROcodone bitartrate 7.5 mg oral tablet (2 sources) Opioid Agonist Start: 05-06-2023 take 1 tablet by mouth once, then take 1 tablet by mouth every hour [place] 325 mg-7.5 mg oral tablet 1 tab(s), Oral, Once, 1 tab(s), Refill(s) 0, Take 1 hour prior to procedure, [facility]/pharmacy #[id number], 187, cm, 03/11/23 13:44:00 EDT, Height/Length Dosing, 93, kg, 03/11/23 13:44:00 EDT, Weight Dosing Start Date: 05/06/23 Status: Ordered [id number] 200 actuat albuterol 0.09 mg/actuat metered dose inhaler (20 sources) beta2-Adrenerg ic Agonist Start: 10-05-2024 take 2 puff(s) by inhalation every six hours as needed for wheezing albuterol sulfate HFA (PROVENTIL;VENTOLIN ;PROAIR) 108 (90 Base) MCG/ACT inhaler Inhale 2 puffs into the lungs every 6 hours as needed for Wheezing or Shortness of Breath 18 g 10/05/2024 Active Start: 10-02-2024 2.5 mg, Nebuli zation, EVERY 6 HOURS PRN, Starting on 10/02/24 at 1102, Until Discontinued, Wheezing, Initiate RT Bronchodilator Protocol: Yes - Inpatient Protocol Start: 10-22-2023 take 1 puff(s) by in halation every six hours as needed for wheezing Albuterol Sulfate 90 mcg/actuation HFA aerosol inhaler Active 2 PUFF INHALATION Every 6 hours as needed for shortness of breath or wheezing October 22, 2023 12:00am Start: 09-30-2023 End: 03-28-2024 take 2 puff(s) by inhalation every six hours for wheezing albuterol HFA 90 mcg/act inhaler Indications: Simple chronic bronchitis (HCC) Inhale 2 puffs every [...] 1 puff(s) by inhalation three times daily as needed Albuterol Sulfate 90 mcg/actuation HFA aerosol inhaler Discontinued 2 PUFF INHALATION Three times daily as needed for Shortness Of Breath May 16, 2022 1:00am October 22, 2023 [...] every 4 hrs Active Albuterol (Eqv-ProAir HFA) 9 0 mcg/inh inhalation aerosol (20 sources) Start: 06-10-2022 Albuterol (Eqv -ProAir HFA) 90 mcg/inh inhalation aerosol Refill(s) 0 Start Date: 06/10/22 Status: Ordered Repeat number: 1 Start: 06-10-2022 Albuterol (Eqv -ProAir HFA) 90 mcg/inh inhalation aerosol Refill(s) 0 Start Date: 06/10/22 Status: Ordered amiodarone hydrochloride 200 mg oral tablet (20 sources) Antiarrhythmic Start: 02-10-2024 End: 02-09-2025 amiodarone 200 mg Tab 200 mg = 1 tab(s), Refills(s) 0 Start Date: 04/06/24 Status: Ordered Repeat number: 1 Start: 01-23-2024 End: 03-08-2024 take 1 tablet by mouth twice daily Amiodarone 200 mg Tablet Discontinued 200 MG PO Twice daily 60 January 23, 2024 12:00am March 08, 2024 12:52pm amLODIPine 5 mg oral tablet (20 sources) Dihydropyridine Calcium Channel Maldonado Start: 04-06-2024 take 5 mg by mouth twice daily amlodipine 5 mg, Oral, BID, Refills(s) 0 Start Date: 04/06/24 Status: Ordered Repeat number: 1 Start: 12-31-2023 End: 01-23-2024 take 1 tablet by mouth once daily Amlodipine 5 mg tablet Discontinued 5 MG PO Daily December 31, 2023 12:00am January 23, 2024 2:59pm Start: 06-10-2023 End: 12-31-2023 take 1 tablet by mouth twice daily Amlodipine 5 mg tablet Discontinued 5 MG PO Twice daily October [...] Mar, Active apixaban 2.5 mg oral tablet (20 sources) Factor Xa Inhibitor Start: 01-23-2024 End: 08-11-2024 Eliquis 2.5 mg oral tablet Refills(s) 0 Start Date: 04/06/24 Status: Ordered Repeat number: 1 ARIPiprazole 5 mg oral tablet (18 sources) Atypical Antipsychotic Start: 11-03-2024 take 1 tablet by mouth once daily Aripiprazole 5 mg tablet Active 5 MG PO Daily November 03, 2024 12:00am Start: 10-15-2024 End: 11-09-2024 take 2.5 mg by mouth at bedtime ARIPiprazole (Abilify) 5 MG tablet Take 2.5 mg by mouth at bedtime 10/15/2024 11/09/2024 Discontinued (Med list cleanup) Start: 09-23-2024 End: 10-11-2024 Aripiprazole 2 mg tablet Dis continued 2 MG PO September 23, 2024 12:00am October 11, 2024 12:28pm Start: 09-21-2024 End: 10-21-2024 take 0.5 tablet by mouth at bedtime ARIPiprazole (Abilify) 2 MG tablet Indications: Hallucinations Take 0.5 tablets (1 mg) by mouth at bedtime 15 tablet 09/21/2024 10/19/2024 Discontinued (Discontinued by another clinician) atorvastatin 80 mg oral tablet (20 sources) HMG-CoA Reductase Inhibitor Start: 01-16-2024 take 1 tablet by mouth once daily atorvastatin 80 mg Tab 80 mg = 1 tab(s), Oral, Daily, # 30 tab(s), Refills(s) 0 Start Date: 03/02/24 Status: Ordered Quantity: 30.0 Unit: tab(s) Repeat number: 1 cephalexin 250 mg oral capsule (20 sources) Cephalosporin Antibacterial Start: 10-22-2024 take 1 capsule by mouth three times weekly cephalexin (Keflex) 250 MG capsule Take 250 mg by mouth 3 (three) times a week On Friday, Friday, Friday10/22/2024 Active Start: 09-24-2024 take 1 capsule by [facility] once daily Keflex 500 mg Cap 500 mg = 1 cap(s), Oral, Daily, Take 1 capsule the day before the procedure and 1 capsule after the procedure, # 2 cap(s), Refills(s) 0, Pharmacy: [facility]/pharmacy #[id number], 187, cm, 07/15/24 10:46:00 EST, Height/Length Dosing, 93, kg, 07/15/24 10:46:00 EST, Weight Dosing Start Date: 09/24/24 Status: Ordered Quantity: 2.0 Unit: cap(s) Repeat number: 1 Start: 09-09-2024 End: 09-04-2025 Keflex 250 mg Cap 250 mg = 1 cap(s), Oral, MonWedFri, X 30 day(s), # 13 cap(s), Refills(s) 11, Pharmacy: [facility]/pharmacy #[id number], 187, cm, 07/15/24 10:46:00 EST, Height/Length Dosing, 93, kg, 07/15/24 10:46:00 EST, Weight Dosing Start Date: 09/09/24 Stop Date: 09/04/25 Status: Ordered Quantity: 13.0 Unit: cap(s) Repeat number: 12 Start: 07-15-2024 take 1 capsule by [facility] once daily Keflex 250 mg Cap 250 mg = 1 cap(s), Oral, Daily, # 30 cap(s), Refills(s) 1, [id number], cm, 07/15/24 10:46:00 EST, Height/Length Dosing, 93, kg, 07/15/24 10:46:00 EST, Weight Dosing Start Date: 07/15/24 Status: Ordered Start: 06-22-2024 End: 10-08-2024 take 1 capsule by mouth in the morning cephalexin (Keflex) 250 mg capsule Take 1 capsule (250 mg) by mouth early in the morning.. 07/18/2024 10/08/2024 Discontinued (Med List Cleanup) Start: 04-28-2024 End: 05-13-2024 take 1 capsule [...] 3 times a day. 02/10/2024 Discontinued (Other) clopidogrel (20 sources) [id number] Platelet Inhibitor Start: 04-06-2024 clopi dogrel 75 mg, Refills(s) 0 Start Date: 04/06/24 Status: Ordered Repeat number: 1 Start: 04-06-2024 clopidogrel 75 mg, Refills(s) 0 Start Date: 04/06/24 Status: Ordered Start: 03-05-2024 take 1 tablet by charlene th once daily Clopidogrel 75 mg tablet Active 75 MG PO Daily August 11, 2024 12:00am Start: 03-05-2024 clopidogrel (P lavix) 75 mg tablet Indications: Coronary artery disease involving [place] coronary artery of [place] heart without angina pectoris Patient will take 4 tablets ( 300mg) one time only, then will take one tablet daily 90 tablet 3 03/05/2024 Active donepezil hydrochloride 10 mg oral tablet (11 sources) Start: 11-19-2024 End: 05-18-2025 take 2 tablets by mouth at bedtime donepezil (Aricept) 10 MG tablet Indications: 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 disturbance, psychotic disturbance, mood disturbance, or anxiety (HCC) Take 2 tablets (20 mg) by mouth at bedtime 11/19/2024 05/18/2025 Active Start: 10-22-2024 End: 04-20-2025 take 1 tablet by mouth once daily at bedtime donepezil 10 mg Tab 10 mg = 1 tab(s), Oral, Once a day (at bedtime) Start Date: 11/16/24 Status: Ordered Repeat number: 1 1 ml enoxaparin sodium 100 mg/ml prefilled syringe (1 source) Low Molecular Weight Heparin Start: 10-08-2024 enoxaparin (Lovenox) 100 mg/mL syringe Indications: Cardiomyopathy, ischemic , S/P PTCA (percutaneous transluminal coronary angioplasty) , Paroxysmal atrial fibrillation (Multi) Inject 1 mL (100 [...] the morning of the procedure. 3 each 10/08/2024 Active Ferric Carboxymaltose (1 source) Start: 11-02-2024 inject 100 mg intravenously every week Ferric Carboxymaltose (Injectafer) 100 mg iron/2 mL solution Active 750 MG IV Q7D November 02, 2024 12:00am ferrous sulfate 325 mg oral tablet (20 sources) Start: 10-06-2024 take 325 mg by mouth once daily at breakfast 325 mg, Oral, DAILY WITH BREAKFAST, First dose (after last modification) on Fri10/06/24 at 0800, Until Discontinued Start: 08-11-2024 End: 10-05-2024 take 1 tablet by mouth twice daily Ferrous Sulfate 325 mg (65 mg iron) tablet Active 325 MG PO Twice daily 120 August 11, 2024 12:00am Start: 03-02-2024 take 1 tablet by charlene th once daily ferrous sulfate (as elemental iron) 45 mg oral tablet, extended release 45 mg = 1 tab(s), Oral, Daily, # 30 tab(s), Refills(s) 0 Start Date: 03/02/24 Status: Ordered Quantity: 30.0 Unit: tab(s) Repeat number: 1 Start: 10-22-2023 End: 08-11-2024 take 1 tablet by mouth once daily Ferrous Sulfate 142 mg (45 mg iron) tablet extended release Discontinued 142 MG PO Daily October 22, 2023 12:00am August 11, 2024 10:37am take 1 tablet by charlene th at mealtime ferrous sulfate 325 (65 Fe) MG tablet Take 325 mg by mouth in the morning. Take with meals. Active FIBER ADULT GUMMIES PO (20 sources) take 2 tablets by mouth once daily FIBER ADULT GUMMIES PO Take 2 tablets by mouth Daily Active furosemide 40 mg oral tablet (20 sources) Loop Diuretic Start: 05-03-2024 take 1 tablet by mouth once daily Furosemide 40 mg tablet Active 0 .ROUTE .COMPLEX 90 May 03, 2024 10:57am TAKE 1 TABLET BY MOUTH EVERY DAY Start: 02-04-2024 End: 05-03-2024 take 1 tablet by mouth once daily furosemide 40 mg Tab TAKE 1 TABLET BY MOUTH EVERY DAY Start Date: 03/02/24 Status: Ordered Repeat number: 1 inulin 2000 mg chewable tablet (11 sources) Start: 12-31-2023 take 1 tablet by mouth once daily Inulin (Fiber Gummies) 2 gram tablet,chewable Active 2 GM PO Daily December 31, 2023 12:00am 50 ml magnesium sulfate 40 mg/ml injection (1 source) Start: 10-02-2024 2,000 mg, IntraVENous, at 25 mL/hr, Administer over 2 Hours, PRN, Other, Magnesium Replacement, Starting on 10/02/24 at 1050, Mag Lab Replacement Action 1.4-1.6 mg/dL 2,000 mg Total Dose Given as 1,000 mg IVPB x 2 doses or 2,000 mg IVPB x 1 dose 1.0-1.3 mg/dL 4,000 mg Total Dose Given as 1,000 mg IVPB x 4 doses or 2,000 mg IVPB x 2 doses Less than 1.0 mg/dL CALL PHYSICIAN and give 4,000 mg Total Dose Given as 1,000 mg IVPB x 4 doses or 2,000 mg IVPB x 2 doses Infuse at 1,000 mg/hr Repeat Mag level 1 hour after final administration Protocol not for use in Patients with CrCl less than 30ml/min methIMAzole 5 mg oral tablet (20 sources) Thyroid Hormone Synthesis Inhibitor Start: 07-15-2024 End: 07-29-2025 methimazole 5 mg Tab See Instructions, Refills(s) 0 Start Date: 07/15/24 Status: Ordered Repeat number: 1 Start: 05-24-2024 End: 05-24-2025 take 2.5 mg by mouth in the morning methIMAzole (Tapazole) 5 MG tablet Take 2.5 mg by mouth in the morning and 2.5 mg in the evening. 05/24/2024 08/03/2024 Discontinued (Dose adjustment) Start: 05-24-2024 End: 07-29-2024 take 0.5 tablet by mouth twice daily methIMAzole (Tapazole) 5 mg tablet Indications: High risk medication use , Hyperthyroidism Take 0.5 tablets (2.5 mg) by mouth 2 times a day. 90 tablet 3 05/24/2024 07/29/2024 Discontinued (Reorder) metoprolol tartrate 25 mg oral tablet (20 sources) beta-Adrenergic Maldonado Start: 07-15-2024 take 25 mg by mouth once daily metoprolol 25 mg, Oral, Daily, Refills(s) 0 Start Date: 07/15/24 Status: Ordered Repeat number: 1 Start: 05-21-2024 End: 05-21-2025 take 1 tablet by mouth every twenty-four hours in the morning metoprolol succinate XL (Toprol-XL) 25 MG 24 hr tablet Take 25 mg by mouth in the morning. 05/21/2024 05/21/2025 Active Start: 05-21-2024 End: 05-21-2025 take 1 tablet by mouth once daily Metoprolol Succinate 25 mg tablet extended release 24 hr Active 25 MG PO Daily August 11, 2024 12:00am Start: 06-10-2022 Metoprolol tar trate 50 mg Tab Refills(s) 0 Start Date: 06/10/22 Status: Ordered Start: 05-16-2022 End: 01-16-2024 take 1 tablet by mouth twice daily Metoprolol Tartrate 50 mg tablet Discontinued 50 MG PO Twice daily May 16, 2022 1:00am January 16, 2024 2:11pm Multiple Vitamins-Minerals (Multivitamin Gummies Mens) chewable tablet (20 sources) Multiple Vitamin s-Minerals (Multivitamin Gummies Mens) chewable tablet Chew 1 tablet Daily Active multivitamin (Multiple Vitamins) tablet (7 sources) take 1 tablet by mouth once daily multivitamin (Multiple Vitamins) tablet Take 1 tablet by mouth once daily. Active Multivitamin preparation (20 sources) Start: 10-22-2023 take 1 tablet by mouth once daily Multivitamin Active 1 TAB PO Daily October 22, 2023 12:00am Start: 07-31-2022 multivitamin D aily, Refill(s) 0 Start Date: 07/31/22 Status: Ordered Repeat number: 1 Start: 07-31-2022 multivitamin D aily, Refill(s) 0 Start Date: 07/31/22 Status: Ordered Multivitamin Act buzz Multivitamin tablet (6 sources) Start: 10-22-2023 take 1 tablet by mouth once daily Multivitamin tablet Active 1 TAB PO Daily October 22, 2023 12:00am nitroglycerin 0.4 mg sublingual tablet (20 sources) Nitrate Vasodilator Start: 01-16-2024 nitroglycerin 0.4 mg sublingual Tab 0.4 mg = 1 tab(s), SubLingual, q5min, PRN for chest pain, # 100 tab(s), Refills(s) 0 Start Date: 03/02/24 Status: Ordered Quantity: 100.0 Unit: tab(s) Repeat number: 1 ondansetron (ZOFRAN-ODT) disintegrating tablet 4 mg (1 source) Start: 10-02-2024 ondansetron (ZOFRAN-ODT) disintegrating tablet 4 mg 24 hr oxybutynin chloride 10 mg extended release oral tablet (1 source) Cholinergic Muscarinic Antagonist Start: 06-11-2023 take 1 tablet by mouth once daily oxybutynin 10 mg ER Tab 10 mg = 1 tab(s), Oral, Daily, # 14 tab(s), Refills(s) 0, Pharmacy: [facility]/pharmacy #[id number], 187, cm, 06/10/23 13:43:00 EST, Height/Length Dosing, 93, kg, 03/11/23 13:44:00 EDT, Weight Dosing Start Date: 06/11/23 Status: Ordered microencapsulated potassium chloride 20 meq extended release oral tablet (20 sources) Start: 10-02-2024 potassium chloride (KLOR-CON M) extended release tablet 40 mEq Start: 08-11-2024 End: 11-03-2024 Potassium Chloride (Klor-Con M20) 20 mEq tablet,ER particles/crystals Discontinued 10 MEQ PO Daily August 11, 2024 10:30am November 03, 2024 4:02pm Start: 04-06-2024 Klor-Con 20 mE q, Refills(s) 0 Start Date: 04/06/24 Status: Ordered Repeat number: 1 Start: 04-06-2024 Klor-Con 20 mE q, Refills(s) 0 Start Date: 04/06/24 Status: Ordered Start: 02-18-2024 End: 02-17-2025 potassium chloride CR (Klor- Con M20) 20 MEQ ER tablet Take 20 mEq by mouth in the morning. 02/18/2024 02/17/2025 Active predniSONE 10 mg oral tablet (3 sources) predniSONE 10 MG as directed Orally take 4 tablets daily x3 days, take 3 tablets for 3 days, 2 tablets for 3 days, 1 tablet for 3 days Active QUEtiapine 25 mg oral tablet (13 sources) Atypical Antipsychotic Start: take 1 tablet by mouth three times daily quetiapine 25 mg Tab 25 mg = 1 tab(s), Oral, TID Start Date: 11/16/24 Status: Ordered Repeat number: 1 Start: 10-02-2024 End: 11-03-2024 take 1 tablet by mouth once daily at bedtime Quetiapine 25 mg tablet Discontinued 25 MG PO Daily at bedtime October 11, 2024 12:00am November 03, 2024 4:02pm 24 hr rivastigmine 0.192 mg/hr transdermal system (7 sources) Start: 10-11-2024 apply 1 dose transdermal route every hour, then apply 1 dose transdermal route every twenty-four hours Rivastigmine (Exelon Patch) 4.6 mg/24 hour patch 24 hour Active 4.6 MG TRANSDERML Daily October 11, 2024 12:00am Start: 10-04-2024 End: 10-22-2024 apply 1 dose transdermal route once daily rivastigmine (Exelon) 4.6 MG/24HR Place 1 patch on the skin Daily 10/06/2024 10/22/2024 Discontinued (Therapy completed) Spacer/Aero-Holding Chambers (BreatheRite Dulce Spacer Adult) misc (20 sources) Start: 02-17-2024 Spacer/Aero-Ho lding Chambers (BreatheRite Dulce Spacer Adult) misc Indications: Simple chronic bronchitis (HCC) 2 puffs 4 (four) times a day as needed (sob and cough) 1 each 02/17/2024 Active Start: 02-17-2024 Spacer/Aero-Ho lding Chambers (BreatheRite Dulce Spacer Adult) misc Indications: Simple chronic bronchitis (CMS/HCC) 2 puffs 4 (four) times a day as needed (sob and cough) 1 each 02/17/2024 Active ticagrelor 90 mg oral tablet (20 sources) Start: 01-16-2024 take 1 tablet by mouth every twelve hours Brilinta 90 MG tablet Take 90 mg by mouth every 12 (twelve) hours 01/16/2024 Active Start: 01-16-2024 End: 08-11-2024 take 1 tablet by mouth twice daily Ticagrelor (Brilinta) 90 mg Tablet Discontinued 90 MG PO Twice daily 180 90 January 16, 2024 12:00am August 11, 2024 10:30am Vitafusion Fiber Well + Probiotics Gummies oral tablet, chewable (11 sources) Start: 03-02-2024 take 1 tablet by mouth once daily Vitafusion Fiber Well + Probiotics Gummies oral tablet, chewable tab(s), Oral, Daily, Refill(s) 0 Start Date: 03/02/24 Status: Ordered Repeat number: 1 Start: 03-02-2024 take 1 tablet by charlene th once daily Vitafusion Fiber Well + Probiotics Gummies oral tablet, chewable tab(s), Oral, Daily, Refill(s) 0 Start Date: 03/02/24 Status: Ordered warfarin sodium 2 mg oral tablet (20 sources) Vitamin K Antagonist Start: 10-05-2024 End: 10-06-2024 2 mg, Oral, ONCE Warfarin, 1 dose, On Tu10/05/24 at 1800, Indication of Use: A Fib/A Flutter, What is the patient's goal INR? 2.0 - 3.0, Review INR prior to administration. Hazardous med- See facility policy for handling/disposal Start: 10-04-2024 End: 10-04-2024 4 mg, Oral, ONCE Warfarin, 1 dose, On 10/04/24 at 1800, Indication of Use: A Fib/A Flutter, What is the patient's goal INR? 2.0 - 3.0, Review INR prior to administration. Hazardous med- See facility policy for handling/disposal Start: 10-03-2024 End: 10-03-2024 4 mg, Oral, ONCE Warfarin, 1 dose, On 10/03/24 at 1800, Indication of Use: A Fib/A Flutter, What is the patient's goal INR? 2.0 - 3.0, Review INR prior to administration. Hazardous med- See facility policy for handling/disposal Start: 10-02-2024 End: 10-02-2024 2 mg, Oral, ONCE Warfarin, 1 dose, On 10/02/24 at 1800, Indication of Use: A Fib/A Flutter, What is the patient's goal INR? 2.0 - 3.0, Review INR prior to administration. Hazardous med- See facility policy for handling/disposal Start: 04-21-2024 take 0.5 tablet by m outh once daily warfarin (COUMADIN) 2 MG tablet Take 0.5 tablets by mouth daily 04/21/2024 Active Start: 04-06-2024 warfarin 2 mg Tab 2 mg = 1 tab(s), Refills(s) 0 Start Date: 04/06/24 Status: Ordered Repeat number: 1 Start: 04-06-2024 warfarin 2 mg Tab 2 mg = 1 tab(s), Refills(s) 0 Start Date: 04/06/24 Status: Ordered Start: 03-05-2024 End: 03-04-2025 warfarin (Coumadin) 5 mg tab let Indications: Paroxysmal atrial fibrillation (Multi) Take one tablet daily in the evening. Follow with [facility]. Patient will take coumadin and eliquis together for 3 days only 14 tablet 03/05/2024 03/04/2025 Active warfarin placeholder: dosing by pharmacy (1 source) Start: 10-02-2024 Please contact the pharmacy if a dose is not entered by 1600. Review INR prior to warfarin administration. water 1000 mg/ml irrigation solution (9 sources) Start: 04-06-2024 sterile water irrigation solution Refill(s) 0 Start Date: 04/06/24 Status: Ordered Start: 10-03-2023 sterile water irrigation solution See Instructions, 500 mL, Refill(s) 1, Irrigate villarreal catheter as needed with 60 cc sterile water, [id number], 187, cm, 10/03/23 14:11:00 EDT, Height/Length [...] 22-Jan-2023 Active Start: 05-16-2022 End: 06-21-2022 take 1 tablet by mouth once daily Aspirin 81 mg Tablet Discontinued 81 MG PO Daily May 16, 2022 1:00am June 21, 2022 11:01am On Hold: Resume on 06/26/22. Hold this until after your abdominal aortic aneurysm is treated. azithromycin (ZITHROMAX) 500 mg in sodium chloride 0.9 % 250 mL IVPB ([id number]) (1 source) Start: 10-02-2024 End: 10-03-2024 500 mg, IntraVENous, EVERY 24 HOURS, 2 doses, First dose on 10/02/24 at 1200, Last dose on 10/03/24 at 1200, Antimicrobial Indications: Pneumonia (CAP), CAP duration of therapy: 3 days, Use 20mm (Blue) [id number] Adapter Preparation instructions: Attach medication vial to one 20mm (Blue) [id number] adapter. James fluid bag with adapter, mix, and administer per order. benzonatate 100 mg oral capsule (9 sources) Non-narcotic Antitussive Start: 03-08-2024 End: 08-11-2024 take 1 capsule by mouth three times daily Benzonatate 100 mg capsule Discontinued 100 MG PO Three times daily 13 12March 08, 2024 12:00am August 11, 2024 10:30am cefTRIAXone (ROCEPHIN) 1,000 mg in sterile water 10 mL IV syringe (1 source) Start: 10-02-2024 End: 10-05-2024 take 100 mg intravenously every twenty-four hours 1,000 mg, IntraVENous, EVERY 24 HOURS, First dose on 10/02/24 at 1200, For 4 days, Administer as slow IV Push over 5 mins Reconstitute 1 g vials with 9.6 mL of designated diluent to produce a 100 mg/mL solution. cefuroxime 500 mg oral tablet (2 sources) [...] 14 tablet 02/17/2024 02/25/2024 Discontinued (Therapy completed) ciprofloxacin 250 mg oral tablet (11 sources) Quinolone Antimicrobial Start: 10-05-2024 End: 10-05-2024 take 1 tablet by mouth every twelve hours ciprofloxacin (CIPRO) 250 MG tablet Take 1 tablet by mouth every 12 hours for 9 doses 9 tablet 10/05/2024 10/05/2024 Discontinued (Stop Taking at Discharge) Start: 10-05-2024 End: 10-05-2024 250 mg, Oral, EVERY 12 HOURS SCHEDULED (2 times per day), 10 doses, First dose on 10/05/24 at 1045, Last dose on 10/09/24 at 2100, Antimicrobial Indications: Urinary Tract Infection, UTI duration of therapy: 5 days, Do not take with dairy products or calcium-fortified juices. Tube feeding (TF) interaction, obtain physician order to manage. Recommend holding TF for 1 hr before and 1 hr after dose. Due to decreased absorption do not give by J tube. Start: 04-06-2024 take 1 tablet by charlene th once daily Cipro 500 mg Tab = 1 tab(s), Oral, Daily, Refills(s) 0 Start Date: 04/06/24 Status: Ordered Start: 12-03-2022 take 1 tablet by charlene th once daily Cipro 250 mg Tab 250 mg = 1 tab(s), Oral, Daily, Take 1 tablet the day before the procedure and 1 tablet after the procedure, # 6 tab(s), Refills(s) 0, Pharmacy: [id number], 187, cm, 09/18/22 14:39:00 EDT, Height/Length Dosing, 93, kg, 09/18/22 14:39:00 EDT, Weight Dosing Start Date: 12/03/22 Status: Ordered Start: 07-25-2022 take 1 tablet by charlene th once daily Cipro 250 mg Tab 250 mg = 1 tab(s), Oral, Daily, Take 1 tablet the day before the procedure and 1 tablet after the procedure, # 2 tab(s), Refills(s) 0, Pharmacy: [id number], 187, cm, 06/11/22 9:11:00 EST, Height/Length Dosing, 93.5, kg, 06/11/22 9:11:00 EST, W... Start Date: 07/25/22 Status: Ordered doxycycline hyclate 100 mg oral capsule (9 sources) Tetracycline-class Drug Start: 03-08-2024 End: 03-19-2024 doxycycline (Vibramycin) 100 MG capsule Indications: Pneumonia Take 100 mg by mouth in the morning and 100 mg before bedtime. Take with at least 8 ounces (large glass) of water, do not lie down for 30 minutes after. 03/08/2024 03/19/2024 Start: 03-08-2024 End: 08-11-2024 take 1 capsule by mouth twice daily Doxycycline Hyclate 100 mg capsule Discontinued 100 MG PO Twice daily 14 03March 08, 2024 12:00am August 11, 2024 10:30am folic acid 1 mg oral tablet (20 sources) Start: 05-22-2022 folic acid 1 m g Tab Refills(s) 0 Start Date: 06/10/22 Status: Ordered Start: 05-22-2022 End: 10-22-2023 Folic Acid 1 mg tablet Disco ntinued 1000 MCG PO Daily at bedtime June 21, 2022 11:02am October 22, 2023 11:05am Start: 05-22-2022 End: 10-22-2023 take 1000 ug by mouth once daily at bedtime Folic Acid Discontinued 1000 MCG PO Daily at bedtime June 21, 2022 11:02am October 22, 2023 11:05am 10 ml iron sucrose 20 mg/ml injection (4 sources) Parenteral Iron Replacement Start: 10-25-2024 End: 11-02-2024 Iron Sucrose (Venofer) 200 mg iron/10 mL solution Discontinued 200 MG IV Q3D October 25, 2024 12:00am November 02, 2024 9:27am administer over 30 mins Start: 10-21-2024 End: 10-25-2024 Iron Sucrose (Venofer) 200 m g iron/10 mL solution Discontinued 200 MG IV every week 50 October 25, 2024 2:24pm October 25, 2024 2:27pm administer over 2-5 mins Start: 10-04-2024 End: 10-04-2024 200 mg, IntraVENous, ONCE, O n 10/04/24 at 0900, For 1 dose, May administer doses less than or equal to 200 mg undiluted by slow IV injection over 2 to 5 minutes. When administering to hemodialysis patients, give within the first hour of the session. Observe for signs and symptoms of hypersensitivity and/or anaphylactic-type reactions per institutional standard during and for at least 30 minutes following the end of administration and until clinically stable. melatonin 3 mg oral tablet (1 source) Start: 10-04-2024 take 3 mg by mouth once daily as needed 3 mg, Oral, NIGHTLY PRN, Starting on 10/04/24 at 1903, Until Discontinued, Sleep Multi Vitamin Oral Tablet (1 source) take 1 tablet by mouth once daily Multi Vitamin Oral Tablet TAKE 1 TABLET DAILY. Quantity: 0 Refills: 0 Ordered: 22-Jan-2023 DO Active polyethylene glycol 3350 11158 mg powder for oral solution (1 source) Osmotic Laxative Start: 10-02-2024 17 g, Oral, DAILY PRN, Starting on 10/02/24 at 1050, Until Discontinued, Constipation, First line therapy for constipation Potassium Chloride (Klor-Con M20) 20 mEq tablet,ER particles/crystals (8 sources) Start: 03-08-2024 End: 08-11-2024 Potassium Chloride (Klor-Con M20) 20 mEq tablet,ER particles/crystals Discontinued MEQ PO March 08, 2024 12:00am August 11, 2024 10:33am Start: 03-08-2024 Potassium Chlo ride (Klor-Con M20) 20 mEq tablet,ER particles/crystals Active MEQ PO March 08, 2024 12:00am simvastatin 20 mg oral tablet (20 sources) HMG-CoA Reductase Inhibitor Start: 05-16-2022 End: 01-16-2024 take 1 tablet by mouth at bedtime Simvastatin 20 mg tablet Discontinued 20 MG PO Bedtime May 16, 2022 1:00am January 16, 2024 2:11pm 1000 ml sodium chloride 9 mg/ml injection (4 sources) Start: 10-02-2024 End: 10-02-2024 IntraVENous, at 100 mL/hr, CONTINUOUS, Starting on 10/02/24 at 1130, For 12 hours Start: 10-02-2024 IntraVENous, a t 5-250 mL/hr, PRN, if patient receiving piggyback infusions and maintenance fluids are not ordered, Starting on 10/02/24 at 1050, For piggyback infusion, administer at same rate as piggyback for a total of 25 mL. Enter 25 mL into dose field and piggyback rate into rate field of order. If piggyback is infusing at a rate less than 100 mL/hr, enter 25 mL into dose field and 100 mL/hr into rate field of order. Start: 10-02-2024 5-40 mL, Intra VENous, EVERY 12 HOURS SCHEDULED (2 times per day), First dose on 10/02/24 at 1115, Until Discontinued, For Line Patency: Peripheral IV = 5 mL; Midline or Central Line = 10 mL/lumen. If following IV push medication, administer flush at same rate as the IV push. Flush volume is determined by type of infusion therapy being given. For non-viscous solutions use: Peripheral IV = 5 mL Midline or Central Line = 10 mL/lumen For viscous solutions (i.e. blood components, parenteral nutrition, contrast media, or after obtaining blood sample) use: Peripheral IV = 10 mL Midline or Central Line = 20 mL/lumen Start: 10-02-2024 5-40 mL, Intra VENous, PRN, Starting on 10/02/24 at 1050, Until Discontinued, Line Care, After every IV line use, For Line Patency: Peripheral IV = 5 mL; Midline or Central Line = 10 mL/lumen. If following IV push medication, administer flush at same rate as the IV push. Flush volume is determined by type of infusion therapy being given. For non-viscous solutions use: Peripheral IV = 5 mL Midline or Central Line = 10 mL/lumen For viscous solutions (i.e. blood components, parenteral nutrition, contrast media, or after obtaining blood sample) use: Peripheral IV = 10 mL Midline or Central Line = 20 mL/lumen Spacer/Aero-Holding Chambers device (13 sources) End: 05-13-2024 Spacer/Aero-Holding Chambers device every 8 (eight) hours. 05/13/2024 Discontinued (Therapy completed) Spacer/Aero-Hold ing Chambers device every 8 (eight) hours. Active spironolactone 25 mg oral tablet (18 sources) Aldosterone Antagonist Start: 10-03-2023 End: 01-23-2024 take 1 tablet by mouth once daily Spironolactone 25 mg tablet Discontinued 25 MG PO Daily October 22, 2023 12:00am January 23, 2024 2:59pm sulfamethoxazole 800 mg / trimethoprim 160 mg oral tablet (3 sources) Dihydrofolate Reductase Inhibitor Antibacterial, Sulfonamide Antimicrobial Start: 10-05-2024 End: 11-03-2024 take 1 tablet by mouth once daily Sulfamethoxazole-Tr imethoprim 800-160 mg tablet Discontinued 1 TAB PO Daily October 11, 2024 12:00am November 03, 2024 4:02pm vitamin b12 1 mg oral capsule (20 sources) Vitamin B12 Start: 05-22-2022 End: 10-22-2023 take 1 capsule by mouth once daily at bedtime Cyanocobalamin (Vitamin B-12) 1,000 mcg capsule Discontinued 1000 MCG PO Daily at bedtime June 21, 2022 11:02am October 22, 2023 11:04am Cyanocobalamin 1 000 MCG as directed Orally Active take 1 tablet by mouth once kellen y B-12 1000 MCG Oral Tablet TAKE 1 TABLET DAILY DIRECTED. Quantity: 0 Refills: 0 Ordered: 03-Jun-2022 DO Active Problems Active Problems Problem Classification Problem Date Documented Da te Episodic/Chronic Acute myocardial infarction (20 sources) Acute myocardial infarction of anterior wall; Translations: [ST elevation (STEMI) myocardial infarction involving other coronary artery of anterior wall] Onset: 01-16-2024 01-16-2024 Chronic Aortic; peripheral; and visceral artery aneurysms (20 sources) Abdominal aortic aneurysm; Translations: [Abdominal aneurysm without mention of rupture] Onset: 05-16-2022 Chronic Comment on above: Problem List clean-u p per request of Phys. EHR Cmte Attention-deficit, conduct, and disruptive behavior disorders (1 source) Other symptoms and signs involving appearance and behavior; Translations: [Other symptoms and signs involving appearance and behavior] Onset: 10-02-2024 Episodic Calculus of urinary tract (20 sources) Urinary bladder stone; Translations: [Calculus in bladder] Onset: 06-11-2022 Episodic Cancer of bladder (20 sources) Malignant tumor of urinary bladder; Translations: [Malignant neoplasm of bladder, unspecified] Onset: 09-18-2022 Chronic Cancer; other and unspecified primary (20 sources) H/O: malignant neoplasm 12-10-2022 Episodic Cardiac [...] Chronic Complication of device; implant or graft (5 sources) Other mechanical complication of indwelling urethral catheter, initial encounter; Translations: [Mechanical complication of genitourinary device] Onset: 09-16-2022 Episodic Congestive heart failure; nonhypertensive (20 sources) Chronic systolic heart failure; Translations: [Chronic systolic (congestive) heart failure] Onset: 01-16-2024 01-19-2024 Chronic Coronary atherosclerosis and other heart disease (20 sources) Ischemic myocardial dysfunction; Translations: [Ischemic cardiomyopathy] Onset: 01-16-2024 01-19-2024 Chronic Deficiency and other anemia (20 sources) Anemia co-occurrent and due to chronic kidney disease stage 3; Translations: [Anemia due to stage 3b chronic kidney disease (HCC)] Onset: 05-13-2024 05-13-2024 Chronic Deficiency and other anemia (13 sources) Anemia; Translations: [Anemia, unspecified] 10-22-2023 Episodic Deficiency and other anemia (13 sources) Anemia, unspecified; Translations: [Anemia, unspecified] 10-22-2023 [...] 09-11-2022 Chronic Genitourinary symptoms and ill-defined conditions (2 sources) Urinary catheter in situ; Translations: [Presence of urogenital implants] 09-21-2024 Chronic Genitourinary symptoms and ill-defined conditions (20 [...] Chronic Occlusion or stenosis of precerebral arteries (20 sources) Atherosclerosis of right carotid artery; Translations: [Occlusion and stenosis of right carotid artery] Onset: 11-11-2022 11-11-2022 Chronic Other aftercare (1 source) 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; Translations: [RETIREMENT CURRNT USE ANTICOAGULANTS] Onset: 09-08-2022 Episodic Other aftercare (17 sources) Taking high risk medication; Translations: [Other assisted (current) drug therapy] Onset: 02-10-2024 02-10-2024 Episodic Other aftercare (1 source) Long-term current use of anticoagulant; Translations: [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] Onset: 07-15-2024 Episodic Other aftercare (5 sources) Patient encounter status; Translations: [Encounter for palliative care] Onset: 10-04-2024 10-04-2024 Episodic Other and ill-defined cerebrovascular disease (20 sources) Cerebral ischemia Onset: 05-16-2022 06-10-2022 Chronic Other circulatory disease (1 source) Stented artery; Translations: [Presence of other vascular implants and grafts] 10-13-2024 Chronic Other circulatory disease (1 source) Personal history of transient ischemic attack (TIA), and cerebral infarction without residual deficits; Translations: [PERS HX TIA AND CI NO RESID DEFICIT] Onset: 09-08-2022 Episodic Other circulatory disease (10 sources) Low blood pressure; Translations: [Hypotension, unspecified] 01-19-2024 Episodic Other diseases of bladder and urethra (2 sources) Disorder of bladder; Translations: [Other specified disorders of bladder] Onset: 06-10-2022 Chronic Other diseases of bladder and urethra (20 sources) Mass of urinary bladder; Translations: [Other specified disorders of bladder] 06-10-2022 Chronic Comment on above: Problem List clean-u p per request of Phys. EHR Cmte Other diseases of bladder and urethra (4 [...] diseases of kidney and ureters (13 sources) Obstructive nephropathy; Translations: [Other obstructive and reflux uropathy] 10-04-2023 Episodic Other diseases of kidney and ureters (13 sources) Other obstructive and reflux uropathy; Translations: [Other specified disorders of kidney and ureter] 10-22-2023 Episodic Other diseases of veins and lymphatics (1 source) Venous insufficiency (chronic) (peripheral); Translations: [VENOUS INSUFF CHRONIC PERIPHERAL] Onset: 09-23-2022 Episodic Other diseases of veins and lymphatics (20 sources) Venous insufficiency of leg; Translations: [Venous insufficiency (chronic) (peripheral)] Onset: 11-11-2022 11-11-2022 Episodic Other diseases of veins and lymphatics (2 sources) Disorder of vein of lower extremity; Translations: [Venous insufficiency (chronic) (peripheral)] 11-19-2024 Episodic Other ear and sense organ disorders (20 sources) Hearing difficulty; Translations: [Unspecified hearing loss, bilateral] Onset: 11-11-2022 11-11-2022 Chronic Other ear and sense organ disorders (20 sources) Hearing loss; Translations: [Unspecified hearing loss, unspecified ear] Onset: 11-22-2019 12-19-2022 Chronic Other ear and sense organ disorders (2 sources) Mixed conductive and sensorineural hearing loss, bilateral; Translations: [Mixed conductive and sensorineural hearing loss, bilateral] 05-06-2024 Chronic Other gastrointestinal disorders (20 sources) Diarrhea; Translations: [Diarrhea, unspecified] 05-16-2022 Episodic Comment on above: Problem List clean-u p per request of Phys. 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 EHR Cmte Other nervous system disorders (20 sources) Metabolic encephalopathy; Translations: [Metabolic encephalopathy] Onset: 10-04-2024 05-16-2022 Chronic Comment on above: Problem List clean-u p per request of Phys. EHR Cmte Other nervous system disorders (4 sources) Metabolic encephalopathy; Translations: [Metabolic encephalopathy] 05-22-2022 Chronic Other nervous system disorders (9 sources) Circadian rhythm sleep disorder, unspecified type; Translations: [Disruption of 24 hour sleep wake cycle, unspecified] Onset: 01-16-2024 05-22-2022 Chronic Other nervous system disorders (10 sources) Abnormal circadian rhythm; Translations: [Circadian rhythm sleep disorder, unspecified type] 01-23-2024 Chronic Other nervous system disorders (1 source) Unspecified disturbances of skin sensation; Translations: [UNS DISTURBANCES OF SKIN SENSATION] Onset: 09-23-2022 Episodic Other nervous system disorders (2 sources) Impaired cognition; Translations: [Other symptoms and signs involving cognitive functions and awareness] 10-05-2024 Episodic Other nervous system disorders (1 source) Other symptoms and signs involving cognitive functions and awareness; Translations: [Other symptoms and signs involving cognitive functions and awareness] Onset: 10-02-2024 Episodic Other nutritional; endocrine; and metabolic disorders (1 source) Other obesity due to excess calories; Translations: [OTHER OBESITY D/T EXCESS CALORIES] Onset: 09-23-2022 Chronic Other nutritional; endocrine; and metabolic disorders (16 sources) Overweight in adulthood with body mass index of 25 or more but less than 30; Translations: [Overweight] Onset: 02-10-2024 Resolved: 10-08-2024 02-10-2024 Episodic Other nutritional; endocrine; and metabolic disorders (2 sources) Body mass index (BMI) 25.0-25.9, adult; Translations: [Body mass index (BMI) 25.0-25.9, adult] Onset: 10-08-2024 Episodic Peripheral and visceral atherosclerosis (1 source) Peripheral vascular disease; Translations: [Peripheral vascular disease, unspecified] 10-13-2024 Chronic Pneumonia (except that caused by tuberculosis or sexually transmitted disease) (17 sources) Left lower zone pneumonia; Translations: [Pneumonia, unspecified organism] Onset: 10-02-2024 02-17-2024 Episodic Residual codes; unclassified (20 sources) Tobacco user; Translations: [Tobacco use] 05-22-2022 Episodic Comment on above: quit april 3Problem List clean-up per request of Phys. EHR Cmte Residual codes; unclassified (4 sources) Tobacco use; Translations: [Tobacco use disorder] 05-22-2022 Episodic Residual codes; unclassified (13 sources) History of cardiovascular surgery; Translations: [Other specified postprocedural states] 09-18-2023 Episodic Residual codes; unclassified (11 sources) Delirium; Translations: [Disorientation, unspecified] 01-23-2024 Episodic Residual codes; unclassified (3 sources) Prevention status; Translations: [Need for prophylaxis against urinary tract infection] 06-22-2024 Episodic Residual codes; unclassified (2 sources) Hallucinations; Translations: [Hallucinations, unspecified] 09-21-2024 Episodic Residual codes; unclassified (14 sources) Edema of lower extremity; Translations: [Localized edema] Onset: 10-02-2024 10-02-2024 Episodic Residual codes; unclassified (1 source) Localized edema; Translations: [Localized edema] Onset: 10-02-2024 Episodic Thyroid disorders (3 sources) Hyperthyroidism; Translations: [Thyrotoxicosis, unspecified without thyrotoxic crisis or storm] Onset: 07-29-2024 07-29-2024 Chronic Transient cerebral ischemia (20 sources) Transient cerebral ischemia; Translations: [Unspecified transient cerebral ischemia] Onset: 05-16-2022 05-16-2022 Chronic Comment on above: Problem List clean-u p per request of Phys. EHR Cmte Unclassified (1 source) ABDOMINAL AA W/O RUPTURE UNSPCIFIED; Translations: [ABDOMINAL AA W/O RUPTURE UNSPCIFIED] Onset: 09-23-2022 Unclassified (1 source) CONTACT W/AND (SUSP) EXPOS COVID-19; Translations: [CONTACT W/AND (SUSP) EXPOS COVID-19] Onset: 05-22-2022 Unclassified (7 sources) Drug therapy finding 07-15-2024 Unclassified (2 sources) Abdominal aortic aneurysm, without rupture, unspecified; Translations: [Abdominal aortic aneurysm, without rupture, unspecified] Onset: 08-11-2023 Unclassified (1 source) Abdominal aortic aneurysm, without rupture, unspecified (CMS-HCC); Translations: [Abdominal aortic aneurysm, without rupture, unspecified (CMS-HCC)] Onset: 08-11-2023 Urinary tract infections (20 sources) Urinary tract infectious disease; Translations: [Urinary tract infection, site not specified] Onset: 09-16-2022 05-16-2022 Episodic Comment on above: Problem List clean-u p per request of Phys. EHR Cmte Viral infection (4 sources) COVID-19; Translations: [COVID-19] Onset: 01-04-2022 Past or Other Problems Problem Classification Problem Date Documented Da te Episodic/Chronic Acute and unspecified renal failure (20 sources) Acute renal failure syndrome; Translations: [Acute kidney failure, unspecified] Onset: 05-16-2022 Resolved: 12-19-2022 Episodic Comment on above: Problem List clean-u p per request of Phys. EHR Cmte Administrative/social admission (20 sources) Other reduced mobility; Translations: [Impaired mobility and activities of daily living] Onset: 01-16-2024 01-23-2024 Episodic Cancer of bladder (20 sources) History of malignant neoplasm of bladder; Translations: [Personal history of malignant neoplasm of bladder] Onset: 12-10-2022 Resolved: 12-19-2022 Episodic Coronary atherosclerosis and other heart disease (20 sources) Stented coronary artery; Translations: [Presence of coronary angioplasty implant and graft] Onset: 01-16-2024 Resolved: 05-13-2024 01-19-2024 Episodic Fluid and electrolyte disorders (20 sources) Hyperkalemia; Translations: [Metabolic acidosis] Onset: 05-16-2022 Resolved: 05-13-2024 06-10-2022 Episodic Comment on above: Problem List clean-u p per request of Phys. EHR Cmte Malaise and fatigue (4 sources) Other fatigue; Translations: [OTHER FATIGUE] Onset: 05-15-2022 Episodic Mood disorders (20 sources) Mood disorders Onset: 05-12-2023 Resolved: 05-13-2024 05-12-2023 Nausea and vomiting (1 source) Vomiting, unspecified; Translations: [VOMITING UNSPECIFIED] Onset: 05-23-2022 Episodic Neoplasms of unspecified nature or uncertain behavior (20 sources) Neoplasm of unspecified behavior of bladder; Translations: [Neoplasm of bladder] Onset: 09-08-2022 Episodic Nutritional deficiencies (20 sources) Cobalamin deficiency; Translations: [Deficiency of other specified B group vitamins] Onset: 10-06-2023 05-22-2022 Episodic Comment on above: Problem List clean-u p per request of Phys. 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] Onset: 05-22-2022 Episodic Other aftercare (20 sources) Polypharmacy ; Translations: [Other assistant terminal manager (current) drug therapy] Onset: 12-08-2020 12-19-2022 Episodic Other circulatory disease (2 sources) Personal history of other diseases of the circulatory system; Translations: [Personal history of other diseases of the circulatory system] Onset: 01-16-2024 Episodic Other circulatory disease (5 sources) Hypotension, unspecified; Translations: [Hypotension, unspecified] Onset: 01-16-2024 01-23-2024 Episodic Other circulatory disease (20 sources) H/O: cardiovascular disease; Translations: [Personal history of other diseases of the circulatory system] Onset: 02-22-2016 Resolved: 12-19-2022 12-19-2022 Episodic Other circulatory disease (3 sources) Other specified symptoms and signs involving the circulatory and respiratory systems; Translations: [Other symptoms involving respiratory system and chest] Onset: 03-08-2024 03-08-2024 Episodic Other diseases of kidney and ureters (20 sources) Bilateral hydronephrosis ; Translations: [Unspecified hydronephrosis] Onset: 10-06-2023 05-22-2022 Episodic Other gastrointestinal disorders (5 sources) Diarrhea, unspecified; Translations: [Diarrhea] Onset: 05-23-2022 05-22-2022 Episodic Other nervous system disorders (20 sources) White matter disease; Translations: [White matter [...] Episodic Other nutritional; endocrine; and metabolic disorders (20 sources) Overweight; Translations: [Overweight] Onset: 11-11-2022 11-11-2022 Episodic Other screening for suspected conditions (not mental disorders or infectious disease) (7 sources) Other specified abnormal findings of blood chemistry; Translations: [Prolonged QT interval] Onset: 05-16-2022 Episodic Residual codes; unclassified (8 sources) Other [...] Comment on above: 05/17/23 quit; Substance-related disorders (20 sources) Nicotine dependence, cigarettes, uncomplicated; Translations: [Smoker] Onset: 02-23-2015 Resolved: 05-04-2024 12-19-2022 Chronic Comment on above: 1/2 dozen cigarettes ; Unclassified (3 sources) Abdominal aortic aneurysm (AAA) without rupture, unspecified part I71.40 Unclassified (3 sources) Infrarenal abdominal aortic aneurysm (AAA) without rupture I71.43 Unclassified (20 sources) Onset: 12-31-2023 Resolved: 02-10-2024 02-10-2024 Unclassified (1 source) Abdominal aortic aneurysm, without rupture, unspecified; Translations: [Abdominal aortic aneurysm, without rupture, unspecified] Onset: 09-10-2024 Unclassified (1 source) Abdominal aortic aneurysm, without rupture, unspecified (CMS-HCC); Translations: [Abdominal aortic aneurysm, without rupture, unspecified (CMS-HCC)] Onset: 05-21-2024 Results Test Name Value Interpretation Reference Range Facility [facility] Fish and Urine Cyt o ([facility])on 11-29-2024 UVFISH & UC Diagnosis Info Invalid Interpretation Code [facility] Comment on above: Result Comment: A:Ur ine,Bladder Wash:Bladder Wash Diagnosis Summary - Occasional atypical urothelial cells with degenerative changes. Diagnosis Summary - The [facility] FISH study detected normal copy numbers for chromosomes 3, 7, 17, and 9p21. 69 cells were analyzed in this evaluation. No evidence of aneuploidy for chromosomes 3, 7, or 17 or deletion of the 9p21 locus was found in cells present in this specimen. This test does not rule out the possibility of a low grade non-invasive papillary urothelial carcinoma. These findings should be correlated with cytology and cystoscopy results. * CPT: 51416, 10377. Microscopic Notes - Microscopic Notes - Abnormal cells 9p21 deletions: Abnormal cells aneploid events: Total cells analyzed: 69 Hematuria: Gross Description Site ID:A color Light Yellow fixative Alcohol Received 100 mls of clear light yellow fluid with the patient's name and, Bladder Wash on the vial. Electronically signed by : on: 11/29/2024 06:34:10 Performed By: #### 1 [id number] #### [facility] [address] [place] [address] Ambulatory Visit Summaryon 0 11-16-2024 Ambulatory Visit Summary Ambulatory Visit Summary ALEX ANDERSON :1945 Visit Date:11/16/2024 Ambulatory Visit Instructions Your Diagnosis History of bladder cancer Urinary retention Your Care Team Attending Physician - ARLENE CASILLAS, Katia Hall Primary Care Physician - IDANIA CASILLAS, STANLEY Rich This Is Your Medications List cephalexin (Keflex 250 mg Cap) cephalexin (Keflex 500 mg Cap) Contact prescribing physician if questions or concerns albuterol (Albuterol (Eqv-ProAir HFA) 90 mcg/inh inhalation aerosol) amiodarone (amiodarone 200 mg Tab) amlodipine apixaban (Eliquis 2.5 mg oral tablet) atorvastatin (atorvastatin 80 mg Tab) bacillus coagulans-inulin (Vitafusion Fiber Well + Probiotics Gummies oral tablet, chewable) clopidogrel donepezil (donepezil 10 mg Tab) ferrous sulfate (ferrous sulfate (as elemental iron) 45 mg oral tablet, extended release) furosemide (furosemide 40 mg Tab) methimazole (methimazole 5 mg Tab) metoprolol multivitamin nitroglycerin (nitroglycerin 0.4 mg sublingual Tab) potassium chloride (Klor-Con) quetiapine (quetiapine 25 mg Tab) warfarin (warfarin 2 mg Tab) Procedures Performed Cystoscopy (11/16/2024), Flexible cystoscopy (04/06/2024), Flexible cystoscopy (10/03/2023), Cystoscope (03/11/2023), TURBT - Transurethral resection of bladder tumor (09/12/2022), Cystoscopy (07/31/2022). Discharge Vitals Heart Rate (Peripheral) 68 Respiratory Rate 18 Blood Pressure 106/58 Height 187 cm Height 74 in Weight 93 kg Weight 205.03 lb BMI 26.59 What to do next Scheduled Follow-Up Appointments Friday 11:00 AM EDT With: Eboni Anderson PA-C Where: [facility] [address] [place] [address]- You Need to Schedule the Following Appointments Follow Up with ARLENE CASILLAS, ADRIA Sterling When: Where: [facility] [address] , [place] [address]- Medications What How Much When Instructions Unchanged cephalexin (Keflex 250 mg Cap) 1 Capsules By Mouth Friday Duration: 30 Days Unchanged cephalexin (Keflex 500 mg Cap) 1 Capsules By Mouth Every day Take 1 capsule the day before the procedure and 1 capsule after the procedure Unchanged albuterol (Albuterol (Eqv-ProAir [...] prescribing physician if questions or concerns Unchanged donepezil (donepezil 10 mg Tab) 1 Tablets By Mouth Once a day (at bedtime) Contact prescribing physician if questions or concerns Unchanged ferrous sulfate (ferrous sulfate (as elemental iron) 45 mg oral tablet, extended release) 1 Tablets By Mouth Every day Contact prescribing physician if questions or concerns Unchanged furosemide (furosemide 40 mg Tab) TAKE 1 TABLET BY MOUTH EVERY DAY Contact prescribing physician if questions or concerns Unchanged methimazole (methimazole 5 mg Tab) See instructions Contact prescribing physician if questions or concerns Unchanged metoprolol 25 Milligram By Mouth Every day Contact prescribing physician if questions or concerns Unchanged multivitamin Every day Contact prescribing physician if questions or concerns Unchanged nitroglycerin (nitroglycerin 0.4 mg sublingual Tab) 1 Tablets Sublingual Every 5 minutes as needed for for chest pain Contact prescribing physician if questions or concerns Unchanged potassium chloride (Klor-Con) 20 Milliequivalent Contact prescribing physician if questions or concerns Unchanged quetiapine (quetiapine 25 mg Tab) 1 Tablets By Mouth 3 times a day Contact prescribing physician if questions or concerns Unchanged warfarin (warfarin 2 mg Tab) 1 Tablets Contact prescribing physician if questions or concerns Medications and Immunizations Administered Given lidocaine Top 2% Gel w/Appl 6 mL, 5.5 mL, Topical. For: History of bladder cancer, Urinary retention Allergies No Known Allergies No Known Medication Allergies Problems Ongoing - Any problem that you are currently receiving treatment for. 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 Normal [facility] Reminderson 11-16-2024 Reminders Reminders From: Dana Rivas To: [facility] - Recalls Jacobs; Sent: 08/06/2024 15:16:19 EDT Show up: 01/24/2025 15:16:00 EDT Subject: cysto/fish/cytol Due Date/Time: 02/21/2025 15:16:00 EDT Reminder/Recall Patient is due in Mar 2025 for 6 month cysto/fish/cytol, bt ck Patient is due in October 2025 for 1 year cysto/FISH/cytol, bt ck Normal [facility] Fish and Urine Cyt o ([facility])on 11-16-2024 [facility] Method of Extraction Bladder Wash Normal [facility] Comment on above: Performed By: #### 1 [id number] #### [facility] [address] [place] [address] [facility] Number of Jars 1 Invalid Interpretation Code [facility] Comment on above: Performed By: #### 1 [id number] #### [facility] [address] [place] [address] [facility] Specimen Bladder Wash Normal [facility] Comment on above: Performed By: #### 1 [id number] #### [facility] [address] [place] [address] [facility] Type of Service Technical Only Normal [facility] Comment on above: Performed By: #### 1 [id number] #### [facility] [address] [place] [address] Urology Office/Clinic Noteon 11-16-2024 Urology Office/Clinic Note Urology Office/Clinic Note Chief Complaint Cysto HPI Staff 78 year old male presents for cysto/Bladder wash/Villarreal change (bt ck) History of Present Illness Tests reviewed: I have reviewed the previous health record information and history for this patient from Sonya Omalley PA-C. I have reviewed and verified the staff [...] HPI. Physical Exam Vitals & Measurements HR: 68(Peripheral) RR: 18 BP: 106/58 HT: 187 cm HT: 74 in WT: 93 kg WT: 205.03 lb BMI: 26.59 General Appearance: alert, no distress, well nourished, well developed adult. Procedure Operative Information Anesthesia Type: Local Procedure: Local Cystoscopy Complications: None Surgical risks, benefits, details of the procedure have been explained to the patient. Full informed consent has been obtained. Intraoperative Information Prepped: Patient is brought back to the endoscopy suite. Patient is placed in supine position. Villarreal removed. Patient prepped in the usual fashion with Betadine solution. 2% Xylocaine Jelly is placed per Urethra. After waiting several minutes, the Cystoscope is introduced. The Urethra is: Normal, false passage posteriorly at the prostate. The Prostatic Urethra is: Obstructed, long lateral lobes. The Bladder: _No tumors or stones, Trabeculated: Severe (3), open deep tics diffusely. The Ureteral orifices: Show efflux of clear urine Specimens Removed: Bladder wash sent for FISH and Cytology test Removal: Cystoscope is removed. The patient tolerated it well. 18 Fr. The patient denies major complications since the last catheter change. There has been no blood in the urine and no evidence of fever, chills, or flank pain. The Villarreal was changed in the office today with [...] detrusor muscle is present in the specimen. Prio cysto 04/06/24. Pt had IO cysto to check for bladder tumor recurrence without complications today. Pt took prophylactic abx prior to procedure. Will send bladder wash specimen for FISH/cytol and call pt if positive. Follow up 1 yr surveillance cysto/bt ck/FISH/cytol or sooner if needed. Pt understands and agrees with plan. 2. Urinary retention (R33.9: Retention of urine, unspecified) S/p Rezum 06/10/23. Pt had villarreal changed today. -Cont monthly villarreal changes Follow-up With When Contact Information Katia JACOBS MD, URL [facility] [address] [place] [address]- Additional Instructions: 1 yr surveillance cysto/bt ck/FISH/cytol Patient Education Indwelling Urinary Catheter Insertion, Care After Cancer Screening for Males I, Citlalli Rushing, personally scribed for Dr. Jacobs on 11/16/2024 14:44:28. . Documentation recorded by the scribeCitlalli, accurately reflects the services(s) I performed and decisions made by me. Authenticated by Dr. Jacobs on 11/16/2024 14:52:28. 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 Medications Albuterol (Eqv-ProAir HFA) 90 mcg/inh inhalation aerosol amiodarone 200 mg Tab, 200 mg= 1 tab(s) amlodipine, 5 mg, Oral, BID atorvastatin 80 mg Tab, 80 mg= 1 tab(s), Oral, Daily clopidogrel, 75 mg donepezil 10 mg Tab, 10 mg= 1 tab(s), Oral, Once a day (at bedtime) Eliquis 2.5 mg oral tablet ferrous sulfate (as elemental iron) 45 mg oral tablet, extended (more content not included)... Normal [facility] Comment on above: Result Comment: Elec tronically Signed By: Katia JACOBS MD\.br\Date and Time Signed: 11/16/24 14:52 EDT\.br\Electronically Co-Signed By: Citlalli Rushing.br\Date and Time Co-Signed: 11/16/24 14:44 EDT Ambulatory Visit Summaryon 0 11-02-2024 Ambulatory Visit Summary Ambulatory Visit Summary ALEX ANDERSON :1945 Visit Date:11/02/2024 Ambulatory Visit Instructions Your Care Team Attending Physician - JOSSELIN BARR, HEATHER Luu Primary Care Physician - IDANIA CASILLAS, STANLEY Rich This Is Your Medications List albuterol (Albuterol (Eqv-ProAir HFA) 90 mcg/inh inhalation aerosol) amiodarone (amiodarone 200 mg Tab) amlodipine apixaban (Eliquis 2.5 mg oral tablet) atorvastatin (atorvastatin 80 mg Tab) bacillus coagulans-inulin (Vitafusion Fiber Well + Probiotics Gummies oral tablet, chewable) cephalexin (Keflex 250 mg Cap) cephalexin (Keflex 500 mg Cap) clopidogrel ferrous sulfate (ferrous sulfate (as elemental iron) 45 mg oral tablet, extended release) furosemide (furosemide 40 mg Tab) methimazole (methimazole 5 mg Tab) metoprolol multivitamin nitroglycerin (nitroglycerin 0.4 mg sublingual Tab) potassium chloride (Klor-Con) warfarin (warfarin 2 mg Tab) Procedures Performed Flexible cystoscopy (04/06/2024), Flexible cystoscopy (10/03/2023), Cystoscope (03/11/2023), TURBT - Transurethral resection of bladder tumor (09/12/2022), Cystoscopy (07/31/2022). What to do next Scheduled Follow-Up Appointments Friday 2:00 PM EDT With: Katia JACOBS MD Where: [facility] [place] [address]- Medications What How Much When Instructions Unchanged [...] tablet, chewable) By Mouth Every day Unchanged cephalexin (Keflex 250 mg Cap) 1 Capsules By Mouth Friday Duration: 30 Days Unchanged cephalexin (Keflex 500 mg Cap) 1 Capsules By Mouth Every day Take 1 capsule the day before the procedure and 1 capsule after the procedure Unchanged clopidogrel 75 Milligram Unchanged ferrous sulfate (ferrous sulfate (as elemental iron) 45 mg oral tablet, extended release) 1 Tablets By Mouth Every day Unchanged furosemide (furosemide 40 mg Tab) TAKE 1 TABLET BY MOUTH EVERY DAY Unchanged methimazole (methimazole 5 mg Tab) See instructions Unchanged metoprolol 25 Milligram By Mouth Every day Unchanged multivitamin Every day Unchanged nitroglycerin (nitroglycerin 0.4 mg sublingual Tab) 1 Tablets Sublingual Every 5 minutes as needed for for chest pain Unchanged potassium chloride (Klor-Con) 20 Milliequivalent Unchanged warfarin (warfarin 2 mg Tab) 1 Tablets Allergies No Known Allergies No Known Medication Allergies Problems Ongoing - Any problem that you are currently receiving treatment for. 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 Normal [facility] Erythrocyte distribution wid th Auto (RBC) [Ratio]on 10-27-2024 Erythrocyte distribution width (RBC) [Ratio] Erythrocyte distribution width [Ratio] by Automated count High 11.0-15.0 [facility] Estimated glomerular filtrat ion rate (GFR) non- Americanon 10-27-2024 GFR/1.73 sq M.predicted among non-blacks MDRD (S/P/Bld) [Vol rate/Area] Estimated glomerular filtration rate (GFR) non- Low >=60 mL/min/1.7 3m 2 [facility] HMHP CBC WITH PLATELET NO DI FFERENTIALon 10-27-2024 Erythrocyte distribution width (RBC) [Ratio] 18.7 % High 11.0 - 15.0 % [facility] Hematocrit (Bld) [Volume fraction] 35.8 % Low 42.0 - 54.0 % [facility] Hemoglobin (Bld) [Mass/Vol] 10.7 g/dL Low 14.0 - 18.0 g/dL [facility] Interpretation and review of laboratory results Abnormal [facility] MCH (RBC) [Entitic mass] 24 pg Low 25.9 - 34.0 pg [facility] MCHC (RBC) [Mass/Vol] 29.9 g/dL 29.9 - 35.2 g/dL [facility] MCV (RBC) [Entitic vol] 80.4 fL 80.0 - 94.0 fL [facility] Platelet mean volume (Bld) [Entitic vol] 9.6 fL 9.5 - 13.5 fL [facility] TBH PLT 235 [facility]H RBC 4.45 Low [facility]H WBC 6.7 [facility] Hematocrit Auto (Bld) [Volum e fraction]on 10-27-2024 Hematocrit (Bld) [Volume fraction] Hematocrit [Volume Fraction] of Blood by Automated count Low 42.0-54.0 [facility] Hemoglobin [Mass/volume] in Bloodon 10-27-2024 Hemoglobin (Bld) [Mass/Vol] Hemoglobin [Mass/volume] in Blood Low 14.0-18.0 [facility] Iron binding capacity [Mass/ volume] in Serum or Plasmaon 10-27-2024 Iron binding capacity [Mass/Vol] Iron binding capacity [Mass/volume] in Serum or Plasma 250.0-450. 0 [facility] Iron saturation [Mass Fracti on] in Serum or Plasmaon 10-27-2024 Iron saturation [Mass fraction] Iron saturation [Mass Fraction] in Serum or Plasma [facility] - Chemistry and C hemistry - challengeon 10-27-2024 Albumin [Mass/Vol] 3.3 g/dL Low 3.4-5.0 [facility] Calcium [Mass/Vol] 8.7 mg/dL 8.5-10.1 [facility] Chloride [Moles/Vol] 104 mmol/L 98-107 [facility] CO2 [Moles/Vol] 29.3 mmol/L 21.0-32.0 [facility] Cobalamin (Vitamin B12) [Mass/Vol] 593 pg/mL [id number] [facility] Comment on above: Performed at: - L [address] [id number] Director: Morgan Carpenter PhD, Phone: [phone] Creatinine [Mass/Vol] 2.17 mg/dL High 0.70-1.30 [facility] GFR/1.73 sq M.predicted MDRD (S/P/Bld) [Vol rate/Area] 36 mL/min/{1.73_m2} Low >=60 mL/min/1.7 3m 2 [facility] Glucose [Mass/Vol] 95 mg/dL 74-106 [facility] Iron [Mass/Vol] 34.0 ug/dL Low 65.0-175.0 [facility] Magnesium [Mass/Vol] 2.1 mg/dL 1.8-2.4 [facility] Potassium [Moles/Vol] 3.4 mmol/L Low 3.5-5.1 [facility] Sodium [Moles/Vol] 144 mmol/L 136-145 [facility] Urea nitrogen [Mass/Vol] 35.0 mg/dL High 7.0-18.0 [facility] Urea nitrogen/Creatinine [Mass ratio] 16.1 mg/mg [facility] - Urinalysison Protein (U) [Mass/Vol] 54.5 mg/dL High <=11.9 [facility] Leukocytes [#/volume] correc phil for nucleated erythrocytes in Blood by Automated counon 10-27-2024 WBC corrected for nucl RBC Auto (Bld) [#/Vol] Leukocytes [#/volume] corrected for nucleated erythrocytes in Blood by Automated coun 4.0-11.0 [facility] MCH Auto (RBC) [Entitic mass ]on 10-27-2024 MCH (RBC) [Entitic mass] MCH [Entitic mass] by Automated count Low 25.9-34.0 [facility] MCHC Auto (RBC) [Mass/Vol]on 10-27-2024 MCHC (RBC) [Mass/Vol] MCHC [Mass/volume] by Automated count 29.9-35.2 [facility] MCV Auto (RBC) [Entitic vol] on 10-27-2024 MCV (RBC) [Entitic vol] MCV [Entitic vol ume] by Automated count 80.0-94.0 [facility] No Panel Informationon 10-27 Urine Random Creatinine 77.97 mg/dL 20.0 0-300. 00 [facility] Folate 39.70 ng/mL 8.60-58.90 [facility] Phosphorus Level 3.4 mg/dL 2.6-4.7 [facility] Platelet mean volume Auto (B ld) [Entitic vol]on 10-27-2024 Platelet mean volume (Bld) [Entitic vol] Platelet mean volume [Entitic volume] in Blood by Automated count 9.5-13.5 [facility] Platelets Auto (Bld) [#/Vol] on 10-27-2024 Platelets (Bld) [#/Vol] Platelets [#/vol ume] in Blood by Automated count 150-450 [facility] RBC Auto (Bld) [#/Vol]on RBC (Bld) [#/Vol] Erythrocytes [#/volu me] in Blood by Automated count Low 4.70-6.10 [facility] Serum or plasma anion gap de terminationon 10-27-2024 Anion gap [Moles/Vol] Serum or plasma an ion gap determination [facility] Urine protein/creatinine rat ioon 10-27-2024 Protein/Creatinine (U) [Ratio] Urine protein/creatinine ratio [facility] Creatinine (Bld) [Mass/Vol]O rdered By: Margarito Valentine on 10-11-2024 Creatinine [Mass/Vol] Whole blood creati nine measurement High 0.6-1.3 [facility] Comment on above: ER/ESD physician is notified/shown all ISTAT results.Critical values may be confirmed by laboratory testing ifdeemed necessary by ER attending doctor. INR in Platelet poor plasma by Coagulation assayOrdered By: Margarito Valentine on 10-11-2024 INR Coag (PPP) [Relative time] INR in Platelet poor plasma by Coagulation assay [facility] Comment on above: INR Therapeutic Rang [...] with mechanical heart valves: 3 - 4.5 ISTAT XRay CREon 10-11-2024 Creatinine [Mass/Vol] 2.1 mg/dL High 0.6-1.3 [facility] Comment on above: Result Comment: ER/E SD physician is notified/shown all ISTAT results. Critical values may be confirmed by laboratory testing if deemed necessary by ER attending doctor. Performed By: #### A DDONUAPLUS, CUU #### [facility] [address] [place] [address] ISTAT GFR 31.235 Normal [facility] Comment on above: Result Comment: PERF ORMED BY: [place] [address] PATHOLOGIST PRODUCTION PROOFREADER ED CRUZ M.D. Performed By: #### A DDONUAPLUS, CUU #### [facility] [address] [place] [address] No Panel InformationOrdered By: Margarito Valentine on 10-11-2024 Bedside Estimated GFR (eGFR) 31.235 [facility] Partial Thromboplastin Timeo n 10-11-2024 aPTT Coag (Bld) [Time] 36.8 s High 25.1-36.5 Th e [facility] Comment on above: Result Comment: A he matocrit value greater than 55% may lead to inaccurate results in coagulation testing. Patients having hematocrit values >55% require a special collection tube for coagulation studies. Please contact the laboratory at [phone] for redraw instructions. PERFORMED BY: [place] [id number] PATHOLOGIST PRODUCTION PROOFREADER ED CRUZ M.D. Performed By: #### P TT, PT #### [facility] [address] [id number] [facility] Prothrombin Time INRon 10-11 INR Coag (PPP) [Relative time] 1.6 {INR} Normal [facility] Comment on above: Result Comment: INR Therapeutic Range A) Pre- and Peroperative OAT started two weeks before surgery. NOT HIP SURGERY: 1.5 - 2.5 HIP SURGERY: 2 - 3 B) Primary and secondary prevention of venous THROMBOSIS: 2 - 3 C) Active venous thrombosis, pulmonary embolism and prevention of recurrent venous thrombosis: 2 - 3 D) Prevention of arterial thromboembolism including patients with mechanical heart valves: 3 - 4.5 Performed By: #### P TT, PT #### [facility] [address] [id number] [facility] PT Coag (PPP) [Time] 17.9 s High 9.0-12.9 [facility] Comment on above: Result Comment: A he matocrit value greater than 55% may lead to inaccurate results in coagulation testing. Patients having hematocrit values >55% require a special collection tube for coagulation studies. Please contact the laboratory at [phone] for redraw instructions. Performed By: #### P TT, PT #### [facility] [address] [id number] [facility] Prothrombin time (PT)Ordered By: Margarito Valentine on 10-11-2024 PT Coag (PPP) [Time] Prothrombin time (PT) High 9.0- 12.9 [facility] Comment on above: A hematocrit value g reater than 55% may lead to inaccurate results in coagulation testing. Patients having hematocrit values >55% require a special collection tube for coagulation studies. Please contact the laboratory at [phone] for redraw instructions. aPTT in Platelet poor plasma by Coagulation assayOrdered By: Margarito Valentine on 10-11-2024 aPTT Coag (PPP) [Time] Activated partial thromboplastin time (aPTT) in platelet poor plasma by coagulation a High 25.1-36.5 [facility] Comment on above: A hematocrit value g reater than 55% may lead to inaccurate results in coagulation testing. Patients having hematocrit values >55% require a special collection tube for coagulation studies. Please contact the laboratory at [phone] for redraw instructions. Cult,Urineon 10-06-2024 Cult,Urine Specimen Description .CLEAN CATCH URINE Special Requests Site: Urine Culture ENTEROBACTER CLOACAE COMPLEX >100,000 CFU/ML Report Status FINAL 10/06/2024 SUSCEPTIBILITY Organism ENCLCX Method RITESH Gentamicin <=1 SUSCEPTIBLE Levofloxacin 1 INTERMEDIATE Nitrofurantoin 64 INTERMEDIATE Piperacillin/Tazobactam 64 INTERMEDIATE Tobramycin <=1 SUSCEPTIBLE Trimethoprim/Sulfa <=20 SUSCEPTIBLE SUSCEPTIBILITY Organism ENCLCX Method ROGERS CARRENO Ceftriaxone SUSCEPTIBLE Susceptible [facility] Comment on above: Performed By: #### O BS #### [facility] [address] [place] [address] Phlebotomy Coordinator: Milo Engle DO MHPT CULT,URINEon 10-06-2024 Interpretation and review of laboratory results Abnormal [facility] MHPT CULT,URINE Specimen Description .CLEAN CATCH URINE [facility] MHPT CULT,URINE Special Requests Sit e: Urine [facility] MHPT CULT,URINE Culture ENTEROBACTER CLOACAE COMPLEX >100,000 CFU/ML [facility] Report Status FINAL 10/06/2024 [facility] MHPT CULT,URINE Method RITESH [facility] MHPT CULT,URINE Gentamicin <=1 SUSCEPTIBLE Susceptible [facility] MHPT CULT,URINE Levofloxacin 1 INTERMEDIATE Intermediate [facility] MHPT CULT,URINE Nitrofurantoin 64 INTERMEDIATE Intermediate [facility] MHPT CULT,URINE Piperacillin/Tazobac kwong 64 INTERMEDIATE Intermediate [facility] MHPT CULT,URINE Tobramycin <=1 SUSCEPTIBLE Susceptible [facility] MHPT CULT,URINE Trimethoprim/Sulfa < =20 SUSCEPTIBLE Susceptible [facility] Method ROGERS CARRENO Susceptible [facility] MHPT CULT,URINE Ceftriaxone SUSCEPTIBLE Susceptible [facility] Original Ordering Provider: [facility] No Panel Informationon 10-06 MHPT CULT,URINE SUSCEPTIBILITY Susceptible [facility] MHPT CULT,URINE Organism ENCLCX Susceptible [facility] Basic Metab w/rfx MGon 10-05 Anion gap [Moles/Vol] 9 mmol/L Normal 9-16 [facility] Comment on above: Performed By: #### O BS #### [facility] [address] [place] [address] Phlebotomy Coordinator: Milo Engle DO Calcium [Mass/Vol] 8.6 mg/dL Normal 8.6-10.4 [facility] Comment on above: Performed By: #### O BS #### [facility] [place] [address] Phlebotomy Coordinator: Milo Engle DO Chloride [Moles/Vol] 105 mmol/L Normal 98-107 [facility] Comment on above: Performed By: #### O BS #### [facility] [address] [facility] [place] [address] Phlebotomy Coordinator: Milo Engle DO CO2 [Moles/Vol] 27 mmol/L Normal 20-31 [facility] Comment on above: Performed By: #### O BS #### [facility] [address] [facility] [place] [address] Phlebotomy Coordinator: Milo Engle DO Creatinine [Mass/Vol] 1.9 mg/dL High 0.7-1.2 [facility] Comment on above: Performed By: #### O BS #### [facility] [place] [address] Phlebotomy Coordinator: Milo Engle DO GFR/1.73 sq M.predicted among non-blacks MDRD (S/P/Bld) [Vol rate/Area] 35 mL/min/{1.73_m2} Low >60 [facility] Comment on above: Result Comment: These results are not intended for [...] following therapy that affects renal tubular secretion. Performed By: #### O BS #### [facility] [address] [facility] [place] [address] Phlebotomy Coordinator: Milo Engle DO Glucose [Mass/Vol] 97 mg/dL Normal 74-99 [facility] Comment on above: Performed By: #### O BS #### [facility] [place] [address] Phlebotomy Coordinator: Milo Engle DO Potassium [Moles/Vol] 3.3 mmol/L Low 3.7-5.3 [facility] Comment on above: Performed By: #### O BS #### [facility] [place] [address] Phlebotomy Coordinator: Milo Engle DO Sodium [Moles/Vol] 141 mmol/L Normal 136-145 [facility] Comment on above: Performed By: #### O BS #### [facility] [place] [address] Phlebotomy Coordinator: Milo Engle DO Urea nitrogen [Mass/Vol] 24 mg/dL High 8-23 [facility] Comment on above: Performed By: #### O BS #### [facility] [address] [place] [address] Phlebotomy Coordinator: Milo Engle DO Basic Metabolic Panel w/ Ref jeancarlos to MGon 10-05-2024 Anion gap [Moles/Vol] 9 mmol/L 9 - 16 mmol/L [facility] Calcium [Mass/Vol] 8.6 mg/dL 8.6 - 10. 4 mg/dL [facility] Chloride [Moles/Vol] 105 mmol/L 98 - 10 7 mmol/L [facility] CO2 [Moles/Vol] 27 mmol/L 20 - 31 mmol/L [facility] Creatinine [Mass/Vol] 1.9 mg/dL High 0.7 - 1.2 mg/dL [facility] Est, Glom Filt Rate 35 Low - PINF [facility] Comment on above: These results are not intended for use [...] following therapy that affects renal tubular secretion. Glucose [Mass/Vol] 97 mg/dL 74 - 99 mg/dL [facility] Interpretation and review of laboratory results Abnormal [facility] Potassium [Moles/Vol] 3.3 mmol/L Low 3.7 - 5.3 mmol/L [facility] Sodium [Moles/Vol] 141 mmol/L 136 - 145 mmol/L [facility] Urea nitrogen [Mass/Vol] 24 mg/dL High 8 - 23 mg/dL [facility] CBC with Auto Differentialon 10-05-2024 Basophils (Bld) [#/Vol] 0.05 10*3/uL [facility] Basophils/100 WBC (Bld) 1 % 0 - 2 % B [facility] Eosinophils (Bld) [#/Vol] 0.2 10*3/uL [facility] Eosinophils/100 WBC (Bld) 4 % 0 - 4 % [facility] Erythrocyte distribution width (RBC) [Ratio] 21.2 % High 11.5 - 14.9 % [facility] Hematocrit (Bld) [Volume fraction] 35.3 % Low 41 - 53 % [facility] Hemoglobin (Bld) [Mass/Vol] 11.5 g/dL Low 13.5 - 17.5 g/dL [facility] Immature granulocytes (Bld) [#/Vol] 0 10*3/uL [facility] Immature granulocytes/100 WBC (Bld) 0 % 0 [facility] Interpretation and review of laboratory results Abnormal [facility] Lymphocytes/100 WBC (Bld) 30 % 24 - 44 % [facility] Lymphocytes/100 WBC (Bld) 1.53 % [facility] MCH (RBC) [Entitic mass] 24.8 pg Low 26 - 34 pg [facility] MCHC (RBC) [Mass/Vol] 32.7 g/dL 31 - 3 7 g/dL [facility] MCV (RBC) [Entitic vol] 75.8 fL Low 80 - 100 fL [facility] Monocytes/100 WBC (Bld) 7 % 1 - 7 % B on [facility] Monocytes/100 WBC (Bld) 0.36 % B on [facility] Morphology Ian (Bld) [Interp] ANISOCYTOSIS PRESENT [facility] Morphology Ian (Bld) [Interp] HYPOCHROMIA PRESENT [facility] Morphology Ian (Bld) [Interp] FEW ELLIPTOCYTES [facility] Neutrophils/100 WBC (Bld) 58 % 36 - 66 % [facility] Platelet mean volume (Bld) [Entitic vol] 8.1 fL 6.0 - 12.0 fL [facility] Platelets (Bld) [#/Vol] 173 10*3/uL [facility] RBC (Bld) [#/Vol] 4.65 10*6/uL 4.5 - 5.9 m/uL [facility] Segmented neutrophils/100 WBC (Bld) 2.96 % [facility] WBC other (Bld) [#/Vol] 5.1 B on [facility] CBC with Diffon 10-05-2024 Abs. Basophil 0.05 k/uL Normal 0.0-0.2 [facility] Comment on above: Performed By: #### O BS #### [facility] [address] [place], [place] [id number] Phlebotomy Coordinator: Milo Engle DO Abs.Imm.Granulocyte 0.00 k/uL Normal 0.00-0.30 [facility] Comment on above: Performed By: #### O BS #### [facility] [address] [place] [address] Phlebotomy Coordinator: Milo Engle DO Abs.Neutrophil (Seg) 2.96 k/uL Normal 1.3-9.1 [facility] Comment on above: Performed By: #### O BS #### [facility] [address] [place] [address] Phlebotomy Coordinator: Milo Engle DO Basophils/100 WBC (Bld) 1 % Normal 0-2 [facility] Comment on above: Performed By: #### O BS #### [facility] [address] [place] [address] Phlebotomy Coordinator: Milo Engle DO Eosinophils (Bld) [#/Vol] 0.20 10*3/uL Normal 0.0-0.4 [facility] Comment on above: Performed By: #### O BS #### [facility] [place] [address] Phlebotomy Coordinator: Milo Engle DO Eosinophils/100 WBC (Bld) 4 % Normal 0-4 [facility] Comment on above: Performed By: #### O BS #### [facility] [place] [address] Phlebotomy Coordinator: Milo Engle DO Immature granulocytes/100 WBC (Bld) 0 % Normal 0 [facility] Comment on above: Performed By: #### O BS #### [facility] [place] [address] Phlebotomy Coordinator: Milo Engle DO Lymphocytes (Bld) [#/Vol] 1.53 10*3/uL Normal 1.0-4.8 [facility] Comment on above: Performed By: #### O BS #### [facility] [place] [address] Phlebotomy Coordinator: Milo Engle DO Lymphocytes/100 WBC (Bld) 30 % Normal 24-44 [facility] Comment on above: Performed By: #### O BS #### [facility] [address] [facility] [place] [address] Phlebotomy Coordinator: Milo Engle DO Monocytes (Bld) [#/Vol] 0.36 10*3/uL Normal 0.1-1.3 [facility] Comment on above: Performed By: #### O BS #### [facility] [address] [place] [address] Phlebotomy Coordinator: Milo Engle DO Monocytes/100 WBC (Bld) 7 % Normal 1-7 [facility] Comment on above: Performed By: #### O BS #### [facility] [place] [address] Phlebotomy Coordinator: Milo Engle DO Morphology Ian (Bld) [Interp] ANISOCYTOSIS PRESENT Normal [facility] Comment on above: Result Comment: HYPO CHROMIA PRESENT FEW ELLIPTOCYTES Performed By: #### O BS #### [facility] [place] [address] Phlebotomy Coordinator: Milo Engle DO Neutrophil (Seg) 58 % Normal 36-66 [facility] Comment on above: Performed By: #### O BS #### [facility] [place] [address] Phlebotomy Coordinator: Milo Engle DO Erythrocyte distribution width (RBC) [Ratio] 21.2 % High 11.5-14.9 [facility] Comment on above: Performed By: #### O BS #### [facility] [place] [address] Phlebotomy Coordinator: Milo Engle DO Hematocrit (Bld) [Volume fraction] 35.3 % Low 41-53 [facility] Comment on above: Performed By: #### O BS #### [facility] [place] [address] Phlebotomy Coordinator: Milo Engle DO Hemoglobin (Bld) [Mass/Vol] 11.5 g/dL Low 13.5-17.5 [facility] Comment on above: Performed By: #### O BS #### [facility] [address] [place] [address] Phlebotomy Coordinator: Milo Engle DO MCH (RBC) [Entitic mass] 24.8 pg Low 26-34 [facility] Comment on above: Performed By: #### O BS #### [facility] [address] [place] [address] Phlebotomy Coordinator: Milo Engle DO MCHC (RBC) [Mass/Vol] 32.7 g/dL Normal 31-37 [facility] Comment on above: Performed By: #### O BS #### [facility] [address] [place] [address] Phlebotomy Coordinator: Milo Engle DO MCV (RBC) [Entitic vol] 75.8 fL Low 80-100 [facility] Comment on above: Performed By: #### O BS #### [facility] [address] [place] [address] Phlebotomy Coordinator: Milo Engle DO Platelet mean volume (Bld) [Entitic vol] 8.1 fL Normal 6.0-12.0 [facility] Comment on above: Performed By: #### O BS #### [facility] [address] [place] [address] Phlebotomy Coordinator: Milo Engle DO Platelets (Bld) [#/Vol] 173 10*3/uL Normal 150-450 [facility] Comment on above: Performed By: #### O BS #### [facility] [address] [facility] [place] [address] Phlebotomy Coordinator: Milo Engle DO RBC (Bld) [#/Vol] 4.65 10*6/uL Normal 4.5-5.9 [facility] Comment on above: Performed By: #### O BS #### [facility] [address] [facility] [place] [address] Phlebotomy Coordinator: Milo Engle DO WBC (Bld) [#/Vol] 5.1 10*3/uL Normal 3.5-11.0 [facility] Comment on above: Performed By: #### O BS #### [facility] [address] [facility] [place] [address] Phlebotomy Coordinator: Milo Engle DO EKG 12 LeadOrdered By: All Cornejo on 10-05-2024 Atrial Rate 73 BPM Elli Phone: [phone] P [place] 95 degrees Harri Work Phone: [phone] P-R Interval 214 ms Elli Phone: [phone] Q-T Interval 428 ms Elli Phone: [phone] QRS Duration 118 ms Elli Phone: [phone] QTc Calculation (Bazett) 471 ms Elli Phone: [phone] R [place] -16 degrees [employer] Phone: [phone] T [place] 109 degrees Elli Phone: [phone] Ventricular Rate 73 BPM [facility] [employer] Phone: [phone] [employer] Phone: [phone] EKG 12 Leadon 10-05-2024 Sinus rhythm with 1s t degree A-V block Incomplete left bundle branch block ST & T wave abnormality, consider anterior ischemia Abnormal ECG When compared with ECG of 04-Oct-2024 15:45, (unconfirmed) No significant change was found [facility] All Thornton DO - 10/05/2024 Sinus rhythm with 1st degree A-V block Incomplete left bundle branch block ST & T wave abnormality, consider anterior ischemia Abnormal ECG When compared with ECG of 04-Oct-2024 15:45, (unconfirmed) No significant change was found [facility] Iron Binding Cap.on 10-06-19 25 % Fe Saturation 41 % Normal 20-55 [facility] Comment on above: Performed By: #### O BS #### [facility] [address] [place] [address] Phlebotomy Coordinator: Milo Engle DO Iron [Mass/Vol] 103 ug/dL Normal 61-157 [facility] Comment on above: Performed By: #### O BS #### [facility] [place] [address] Phlebotomy Coordinator: Milo Engle DO Total Fe Binding Cap 250 ug/dL Normal 250-450 [facility] Comment on above: Performed By: #### O BS #### [facility] [address] [facility] [place] [address] Phlebotomy Coordinator: Milo Engle DO Unbound Fe Bind Cap 147 ug/dL Normal 112-347 [facility] Comment on above: Performed By: #### O BS #### [facility] [place] [address] Phlebotomy Coordinator: Milo Engle DO Iron and TIBCon 10-05-2024 Iron [Mass/Vol] 103 ug/dL 61 - 157 ug/dL [facility] Iron binding capacity [Mass/Vol] 250 ug/dL 250 - 450 ug/dL [facility] Iron saturation [Mass fraction] 41 % 20 - 55 % [facility] UIBC 147 ug/dL 112 - 347 ug/dL [facility] Magnesiumon 10-05-2024 Magnesium [Mass/Vol] 2.3 mg/dL 1.6 - 2 .4 mg/dL [facility] Magnesium [Mass/Vol] 2.3 mg/dL Normal 1.6-2.4 [facility] Comment on above: Performed By: #### O BS #### [facility] [address] [place] [address] Phlebotomy Coordinator: Milo Engle DO PTon 10-05-2024 INR Coag (PPP) [Relative time] 2.0 {INR} Normal [facility] Comment on above: Result Comment: Therapeutic Range: Moderate Anticoagulant Intensity: INR = 2.0-3.0 High Anticoagulant Intensity: INR = 2.5-3.5 Performed By: #### O BS #### [facility] [address] [place] [address] Phlebotomy Coordinator: Milo Engle DO PT Coag (PPP) [Time] 24.9 s High 11.8-14.6 [facility] Comment on above: Performed By: #### O BS #### [facility] [address] [place] [address] Phlebotomy Coordinator: Milo Engle DO Protime-INRon 10-05-2024 INR Coag (PPP) [Relative time] 2 {INR} [facility] Comment on above: Therapeutic Range: Moderate Anticoagulant Intensity: INR = 2.0-3.0 High Anticoagulant Intensity: INR = 2.5-3.5 Interpretation and review of laboratory results Abnormal [facility] PT Coag (PPP) [Time] 24.9 s High [facility] Basic Metab w/rfx MGon 10-04 Anion gap [Moles/Vol] 8 mmol/L Low 9-16 [facility] Comment on above: Performed By: #### B MPX, CDP, PT #### [facility] [address] [facility] [place] [address] Phlebotomy Coordinator: Milo Engle DO Calcium [Mass/Vol] 8.7 mg/dL Normal 8.6-10.4 [facility] Comment on above: Performed By: #### B MPX, CDP, PT #### [facility] [address] [facility] [place] [address] Phlebotomy Coordinator: Milo Engle DO Chloride [Moles/Vol] 109 mmol/L High 98-107 [facility] Comment on above: Performed By: #### B MPX, CDP, PT #### [facility] [place] [address] Phlebotomy Coordinator: Milo Engle DO CO2 [Moles/Vol] 27 mmol/L Normal 20-31 [facility] Comment on above: Performed By: #### B MPX, CDP, PT #### [facility] [address] [facility] [place] [address] Phlebotomy Coordinator: Milo Engle DO Creatinine [Mass/Vol] 1.8 mg/dL High 0.7-1.2 [facility] Comment on above: Performed By: #### B MPX, CDP, PT #### [facility] [address] [place] [address] Phlebotomy Coordinator: Milo Engle DO GFR/1.73 sq M.predicted among non-blacks MDRD (S/P/Bld) [Vol rate/Area] 38 mL/min/{1.73_m2} Low >60 [facility] Comment on above: Result Comment: These results are not intended for [...] following therapy that affects renal tubular secretion. Performed By: #### B MAGY MUÑIZ, PT #### [facility] [address] [facility] [place] [address] Phlebotomy Coordinator: Milo Engle DO Glucose [Mass/Vol] 103 mg/dL High 74-99 [facility] Comment on above: Performed By: #### B MAGY MUÑIZ, PT #### [facility] [address] [facility] [place] [address] Phlebotomy Coordinator: Milo Engle DO Potassium [Moles/Vol] 3.8 mmol/L Normal 3.7-5.3 [facility] Comment on above: Performed By: #### B MAGY MUÑIZ, PT #### [facility] [address] [facility] [place] [address] Phlebotomy Coordinator: Milo Engle DO Sodium [Moles/Vol] 144 mmol/L Normal 136-145 [facility] Comment on above: Performed By: #### B MAGY MUÑIZ, PT #### [facility] [address] [facility] [place] [address] Phlebotomy Coordinator: Milo Engle DO Urea nitrogen [Mass/Vol] 22 mg/dL Normal 8-23 [facility] Comment on above: Performed By: #### B MAGY MUÑIZ, PT #### [facility] [address] [facility] [place] [address] Phlebotomy Coordinator: Milo Engle DO Basic Metabolic Panel w/ Ref jeancarlos to MGon 10-04-2024 Anion gap [Moles/Vol] 8 mmol/L Low 9 - 16 mmol/L [facility] Calcium [Mass/Vol] 8.7 mg/dL 8.6 - 10. 4 mg/dL [facility] Chloride [Moles/Vol] 109 mmol/L High 98 - 10 7 mmol/L [facility] CO2 [Moles/Vol] 27 mmol/L 20 - 31 mmol/L [facility] Creatinine [Mass/Vol] 1.8 mg/dL High 0.7 - 1.2 mg/dL [facility] EstVahe Filt Rate 38 Low - PINF [facility] Comment on above: These results are not intended for use [...] following therapy that affects renal tubular secretion. Glucose [Mass/Vol] 103 mg/dL High 74 - 99 mg/dL [facility] Interpretation and review of laboratory results Abnormal [facility] Potassium [Moles/Vol] 3.8 mmol/L 3.7 - 5.3 mmol/L [facility] Sodium [Moles/Vol] 144 mmol/L 136 - 145 mmol/L [facility] Urea nitrogen [Mass/Vol] 22 mg/dL 8 - 23 mg/dL [facility] Blood Occult Stool Screen #1 on 10-04-2024 Date, Stool #1 [id number] [facility] Hemoglobin.gastrointest inal spec 1 Ql (Stl) Negative NEGATIVE [facility] Time, Stool #1 [id number] [facility] CBC with Auto Differentialon 10-04-2024 Basophils (Bld) [#/Vol] 0.03 10*3/uL [facility] Basophils/100 WBC (Bld) 1 % 0 - 2 % B on [facility] Eosinophils (Bld) [#/Vol] 0.29 10*3/uL [facility] Eosinophils/100 WBC (Bld) 4 % 0 - 4 % [facility] Erythrocyte distribution width (RBC) [Ratio] 20 % High 11.5 - 14.9 % [facility] Hematocrit (Bld) [Volume fraction] 38.7 % Low 41.0 - 53.0 % [facility] Hemoglobin (Bld) [Mass/Vol] 11.2 g/dL Low 13.5 - 17.5 g/dL [facility] Immature granulocytes (Bld) [#/Vol] [facility] Immature granulocytes/100 WBC (Bld) 0 % 0 [facility] Interpretation and review of laboratory results Abnormal [facility] Lymphocytes/100 WBC (Bld) 17 % Low 24 - 44 % [facility] Lymphocytes/100 WBC (Bld) 1.13 % [facility] MCH (RBC) [Entitic mass] 24 pg Low 26.0 - 34.0 pg [facility] MCHC (RBC) [Mass/Vol] 28.9 g/dL Low 31.0 - 37.0 g/dL [facility] MCV (RBC) [Entitic vol] 83 fL 80.0 - 100.0 fL [facility] Monocytes/100 WBC (Bld) 15 % High 3 - 12 % B on [facility] Monocytes/100 WBC (Bld) 0.98 % B on [facility] Neutrophils/100 WBC (Bld) 63 % 36 - 66 % [facility] Nucleated RBC/100 WBC (Bld) [Ratio] 0 % 0 per 100 WBC [facility] Platelet mean volume (Bld) [Entitic vol] 10.2 fL 8.0 - 13.5 fL [facility] Platelets (Bld) [#/Vol] 195 10*3/uL [facility] RBC (Bld) [#/Vol] 4.66 10*6/uL 4.21 - 5.77 m/uL [facility] Segmented neutrophils/100 WBC (Bld) 4.2 % [facility] WBC other (Bld) [#/Vol] 6.7 B on [facility] CBC with Diffon 10-04-2024 Abs. Basophil 0.03 k/uL Normal 0.00-0.20 [facility] Comment on above: Performed By: #### B MPX, CDP, PT #### [facility] [address] [place] [address] Phlebotomy Coordinator: Milo Engle DO Abs.Imm.Granulocyte <0.03 Normal 0.00-0.30 [facility] Comment on above: Performed By: #### B MAGY MUÑIZ, PT #### [facility] [place] [address] Phlebotomy Coordinator: Milo Engle DO Abs.Neutrophil (Seg) 4.20 k/uL Normal 1.50-8.10 [facility] Comment on above: Performed By: #### B MAGY MUÑIZ, PT #### [facility] [address] [place] [address] Phlebotomy Coordinator: Milo Engle DO Basophils/100 WBC (Bld) 1 % Normal 0-2 [facility] Comment on above: Performed By: #### B MAGY MUÑIZ, PT #### [facility] [address] [place] [address] Phlebotomy Coordinator: Milo Engle DO Eosinophils (Bld) [#/Vol] 0.29 10*3/uL Normal 0.00-0.44 [facility] Comment on above: Performed By: #### B MAGY MUÑIZ, PT #### [facility] [place] [address] Phlebotomy Coordinator: Milo Engle DO Eosinophils/100 WBC (Bld) 4 % Normal 0-4 [facility] Comment on above: Performed By: #### B MAGY MUÑIZ, PT #### [facility] [address] [place] [address] Phlebotomy Coordinator: Milo Engle DO Erythrocyte distribution width (RBC) [Ratio] 20.0 % High 11.5-14.9 [facility] Comment on above: Performed By: #### B MAGY MUÑIZ, PT #### [facility] [address] [place] [address] Phlebotomy Coordinator: Milo Engle DO Hematocrit (Bld) [Volume fraction] 38.7 % Low 41.0-53.0 [facility] Comment on above: Performed By: #### B MAGY MUÑIZ, PT #### [facility] [address] [place] [address] Phlebotomy Coordinator: Milo Engle DO Hemoglobin (Bld) [Mass/Vol] 11.2 g/dL Low 13.5-17.5 [facility] Comment on above: Performed By: #### B ANTONINO CDP, PT #### [facility] [place] [address] Phlebotomy Coordinator: Milo Engle DO Immature granulocytes/100 WBC (Bld) 0 % Normal 0 [facility] Comment on above: Performed By: #### MAGY PAK, PT #### [facility] [place] [address] Phlebotomy Coordinator: Milo Engle DO Lymphocytes (Bld) [#/Vol] 1.13 10*3/uL Normal 1.10-3.70 [facility] Comment on above: Performed By: #### B MAGY MUÑIZ, PT #### [facility] [place] [address] Phlebotomy Coordinator: Milo Engle DO Lymphocytes/100 WBC (Bld) 17 % Low 24-44 [facility] Comment on above: Performed By: #### B ANTONINO CDP, PT #### [facility] [place] [address] Phlebotomy Coordinator: Milo Engle DO MCH (RBC) [Entitic mass] 24.0 pg Low 26.0-34.0 [facility] Comment on above: Performed By: #### B ANTONINO CDP, PT #### [facility] [place] [facility] [place] [address] Phlebotomy Coordinator: Milo Engle DO MCHC (RBC) [Mass/Vol] 28.9 g/dL Low 31.0-37.0 [facility] Comment on above: Performed By: #### B MPX CDP, PT #### [facility] [address] [place] [address] Phlebotomy Coordinator: Milo Engle DO MCV (RBC) [Entitic vol] 83.0 fL Normal 80.0-100.0 [facility] Comment on above: Performed By: #### B ROBYNX CDP, PT #### [facility] [place] [address] Phlebotomy Coordinator: Milo Engle DO Monocytes (Bld) [#/Vol] 0.98 10*3/uL Normal 0.10-1.20 [facility] Comment on above: Performed By: #### B MPX CDP, PT #### [facility] [place] [facility] [place] [address] Phlebotomy Coordinator: Milo Engle DO Monocytes/100 WBC (Bld) 15 % High 3-12 [facility] Comment on above: Performed By: #### B MPX CDP, PT #### [facility] [address] [place] [address]. [place] [address] Phlebotomy Coordinator: Milo Engle DO Neutrophil (Seg) 63 % Normal 36-66 [facility] Comment on above: Performed By: #### B MPX, CDP, PT #### [facility] [address] [place] [address]. [place] [address] Phlebotomy Coordinator: Milo Engle DO NRBC Automated 0.0 per 100 WBC Normal 0 [facility] Comment on above: Performed By: #### B MPX, CDP, PT #### [facility] [place] [facility] [place] [address] Phlebotomy Coordinator: Milo Engle DO Platelet mean volume (Bld) [Entitic vol] 10.2 fL Normal 8.0-13.5 [facility] Comment on above: Performed By: #### B MPX, CDP, PT #### [facility] [address] [place] [address] Phlebotomy Coordinator: Milo Engle DO Platelets (Bld) [#/Vol] 195 10*3/uL Normal 150-450 [facility] Comment on above: Performed By: #### B MPX, CDP, PT #### [facility] [facility] [place] [address] Phlebotomy Coordinator: Milo Engle DO RBC (Bld) [#/Vol] 4.66 10*6/uL Normal 4.21-5.77 [facility] Comment on above: Performed By: #### B MPX, CDP, PT #### [facility] [address] [facility] [place] [address] Phlebotomy Coordinator: Milo Engle DO WBC (Bld) [#/Vol] 6.7 10*3/uL Normal 3.5-11.0 [facility] Comment on above: Performed By: #### B MPX, CDP, PT #### [facility] [place] [address] Phlebotomy Coordinator: Milo Engle DO Mycoplasma Ab, IgMon 10-04-2 025 Mycoplasma Ab, IgM 0.11 Normal <0.91 [facility] Comment on above: Result Comment: Reference Range: <=0.90 Negative 0.91-1.09 Equivocal >=1.10 Positive Performed By: #### O BS #### [facility] [place] [address] Phlebotomy Coordinator: Milo Engle DO Mycoplasma Ab,IgMon 05-12-20 25 M. pneumoniae IgM IA Ql (S) 0.11 NINF - 0.91 [facility] Comment on above: Reference Range: <=0.90 Negative 0.91-1.09 Equivocal >=1.10 Positive [facility] No Panel InformationOrdered By: Alex Alcala on 10-04-2024 Body surface area Derived from formula 2.04 m2 [facility] Work Phone: [facility] Work Phone: No Panel Informationon 10-04 No evidence of deep vein or superficial [...] 1.293 cm.Color flow seen in residual lumen. 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 During the study longitudinal and transverse views were obtained. Study was technically difficult due to: bedside exam, patient positioning and edema. [facility] CV CPACS Radiology Study observation (narrative) [facility] Occ Bld, Fecal Scrnon 2024 Occult Blood 1 Negative Normal NEG [facility] Comment on above: Performed By: #### O BS #### [facility] [address] [place] [address] Phlebotomy Coordinator: Milo Engle DO Specimen 1 Date [facility] Comment on above: Performed By: #### O BS #### [facility] [address] [place] [address] Phlebotomy Coordinator: Milo Engle DO Specimen 1 Time 0836 [facility] Comment on above: Performed By: #### O BS #### [facility] [address] [place] [address] Phlebotomy Coordinator: Milo Engle DO PTon 10-04-2024 INR Coag (PPP) [Relative time] 1.7 {INR} Normal [facility] Comment on above: Result Comment: Therapeutic Range: Moderate Anticoagulant Intensity: INR = 2.0-3.0 High Anticoagulant Intensity: INR = 2.5-3.5 Performed By: #### B MPX, CDP, PT #### [facility] [address] [place] [address] Phlebotomy Coordinator: Milo Engle DO PT Coag (PPP) [Time] 22.0 s High 11.8-14.6 [facility] Comment on above: Performed By: #### B MPX, CDP, PT #### [facility] [address] [place] [address] Phlebotomy Coordinator: Milo Engle DO Protime-INRon 10-04-2024 INR Coag (PPP) [Relative time] 1.7 {INR} [facility] Comment on above: Therapeutic Range: Moderate Anticoagulant Intensity: INR = 2.0-3.0 High Anticoagulant Intensity: INR = 2.5-3.5 Interpretation and review of laboratory results Abnormal [facility] PT Coag (PPP) [Time] 22.0 s High [facility] B12/Folate Panelon 5 Folic Acid 28.5 ng/mL High 4.8-24.2 [facility] Comment on above: Performed By: #### B MPXMAGY, PT #### [facility] [address] [place] [address] Phlebotomy Coordinator: Milo Engle DO Cobalamin (Vitamin B12) [Mass/Vol] 377 pg/mL Normal 232-1245 [facility] Comment on above: Performed By: #### B MAGY MUÑIZ, PT #### [facility] [address] [place] [address] Phlebotomy Coordinator: Milo Engle DO Basic Metab w/rfx MGon 10-03 Anion gap [Moles/Vol] 8 mmol/L Low 9-16 [facility] Comment on above: Performed By: #### B MAGY MUÑIZ, PT #### [facility] [address] [place] [address] Phlebotomy Coordinator: Milo Engle DO Calcium [Mass/Vol] 8.3 mg/dL Low 8.6-10.4 [facility] Comment on above: Performed By: #### B MAGY MUÑIZ, PT #### [facility] [address] [place] [address] Phlebotomy Coordinator: Milo Engle DO Chloride [Moles/Vol] 110 mmol/L High 98-107 [facility] Comment on above: Performed By: #### B MAGY MUÑIZ, PT #### [facility] [address] [place] [address] Phlebotomy Coordinator: Milo Engle DO CO2 [Moles/Vol] 24 mmol/L Normal 20-31 [facility] Comment on above: Performed By: #### B MPXMAGY, PT #### [facility] [address] [facility] [place] [address] Phlebotomy Coordinator: Milo Engle DO Creatinine [Mass/Vol] 1.7 mg/dL High 0.7-1.2 [facility] Comment on above: Performed By: #### B MPXMAGY, PT #### [facility] [address] [facility] [place] [address] Phlebotomy Coordinator: Milo Engle DO GFR/1.73 sq M.predicted among non-blacks MDRD (S/P/Bld) [Vol rate/Area] 40 mL/min/{1.73_m2} Low >60 [facility] Comment on above: Result Comment: These results are not intended for [...] following therapy that affects renal tubular secretion. Performed By: #### B MAGY MUÑIZ, PT #### [facility] [address] [facility] [place] [address] Phlebotomy Coordinator: Milo Engle DO Glucose [Mass/Vol] 98 mg/dL Normal 74-99 [facility] Comment on above: Performed By: #### B ROBYNXMAGY, PT #### [facility] [address] [facility] [place] [address] Phlebotomy Coordinator: Milo Engle DO Potassium [Moles/Vol] 3.3 mmol/L Low 3.7-5.3 [facility] Comment on above: Performed By: #### B MPX CDP, PT #### [facility] [address] [facility] [place] [address] Phlebotomy Coordinator: Milo Engle DO Sodium [Moles/Vol] 142 mmol/L Normal 136-145 [facility] Comment on above: Performed By: #### B MAGY MUÑIZ, PT #### [facility] [address] [facility] [place] [address] Phlebotomy Coordinator: Milo Engle DO Urea nitrogen [Mass/Vol] 24 mg/dL High 8-23 [facility] Comment on above: Performed By: #### B MAGY MUÑIZ, PT #### [facility] [address] [facility] [place] [address] Phlebotomy Coordinator: Milo Engle DO Basic Metabolic Panel w/ Ref jeancarlos to MGon 10-03-2024 Anion gap [Moles/Vol] 8 mmol/L Low 9 - 16 mmol/L [facility] Calcium [Mass/Vol] 8.3 mg/dL Low 8.6 - 10. 4 mg/dL [facility] Chloride [Moles/Vol] 110 mmol/L High 98 - 10 7 mmol/L [facility] CO2 [Moles/Vol] 24 mmol/L 20 - 31 mmol/L [facility] Creatinine [Mass/Vol] 1.7 mg/dL High 0.7 - 1.2 mg/dL [facility] Est, Glom Filt Rate 40 Low - PINF [facility] Comment on above: These results are not intended for use [...] following therapy that affects renal tubular secretion. Glucose [Mass/Vol] 98 mg/dL 74 - 99 mg/dL [facility] Interpretation and review of laboratory results Abnormal [facility] Potassium [Moles/Vol] 3.3 mmol/L Low 3.7 - 5.3 mmol/L [facility] Sodium [Moles/Vol] 142 mmol/L 136 - 145 mmol/L [facility] Urea nitrogen [Mass/Vol] 24 mg/dL High 8 - 23 mg/dL [facility] CBC with Auto Differentialon 10-03-2024 Basophils (Bld) [#/Vol] 0.06 10*3/uL [facility] Basophils/100 WBC (Bld) 1 % 0 - 2 % B on [facility] Eosinophils (Bld) [#/Vol] 0.29 10*3/uL [facility] Eosinophils/100 WBC (Bld) 5 % High 0 - 4 % [facility] Erythrocyte distribution width (RBC) [Ratio] 20.2 % High 11.5 - 14.9 % [facility] Hematocrit (Bld) [Volume fraction] 33.1 % Low 41.0 - 53.0 % [facility] Hemoglobin (Bld) [Mass/Vol] 9.9 g/dL Low 13.5 - 17.5 g/dL [facility] Immature granulocytes (Bld) [#/Vol] 0 10*3/uL [facility] Immature granulocytes/100 WBC (Bld) 0 % 0 [facility] Interpretation and review of laboratory results Abnormal [facility] Lymphocytes/100 WBC (Bld) 22 % Low 24 - 44 % [facility] Lymphocytes/100 WBC (Bld) 1.28 % [facility] MCH (RBC) [Entitic mass] 24.3 pg Low 26.0 - 34.0 pg [facility] MCHC (RBC) [Mass/Vol] 29.9 g/dL Low 31.0 - 37.0 g/dL [facility] MCV (RBC) [Entitic vol] 81.3 fL 80.0 - 100.0 fL [facility] Monocytes/100 WBC (Bld) 13 % High 3 - 12 % B on [facility] Monocytes/100 WBC (Bld) 0.75 % B on [facility] Morphology Ian (Bld) [Interp] ANISOCYTOSIS PRESENT [facility] Morphology Ian (Bld) [Interp] 1+ ECHINOCYTES [facility] Morphology Ian (Bld) [Interp] 1+ ELLIPTOCYTES [facility] Neutrophils/100 WBC (Bld) 59 % 36 - 66 % [facility] Nucleated RBC/100 WBC (Bld) [Ratio] 0 % 0 per 100 WBC [facility] Platelet mean volume (Bld) [Entitic vol] 9.6 fL 8.0 - 13.5 fL [facility] Platelets (Bld) [#/Vol] 165 10*3/uL [facility] RBC (Bld) [#/Vol] 4.07 10*6/uL Low 4.21 - 5.77 m/uL [facility] Segmented neutrophils/100 WBC (Bld) 3.42 % [facility] WBC other (Bld) [#/Vol] 5.8 B on [facility] CBC with Diffon 10-03-2024 Abs. Basophil 0.06 k/uL Normal 0.00-0.20 [facility] Comment on above: Performed By: #### B MAGY MUÑIZ, PT #### [facility] [address] [place] [address] Phlebotomy Coordinator: Milo Engle DO Abs.Imm.Granulocyte 0.00 k/uL Normal 0.00-0.30 [facility] Comment on above: Performed By: #### B MAGY MUÑIZ, PT #### [facility] [place] [address] Phlebotomy Coordinator: Milo Engle DO Abs.Neutrophil (Seg) 3.42 k/uL Normal 1.50-8.10 [facility] Comment on above: Performed By: #### B MAGY MUÑIZ, PT #### [facility] [place] [address] Phlebotomy Coordinator: Milo Engle DO Basophils/100 WBC (Bld) 1 % Normal 0-2 [facility] Comment on above: Performed By: #### B ROBYNXMAGY, PT #### [facility] [address] [place] [address] Phlebotomy Coordinator: Milo Engle DO Eosinophils (Bld) [#/Vol] 0.29 10*3/uL Normal 0.00-0.44 [facility] Comment on above: Performed By: #### B MPX, CDP, PT #### [facility] [address] [facility] [place] [address] Phlebotomy Coordinator: Milo Engle DO Eosinophils/100 WBC (Bld) 5 % High 0-4 [facility] Comment on above: Performed By: #### B MPXMAGY, PT #### [facility] [place] [address] Phlebotomy Coordinator: Milo Engle DO Immature granulocytes/100 WBC (Bld) 0 % Normal 0 [facility] Comment on above: Performed By: #### B MAGY MUÑIZ, PT #### [facility] [place] [address] Phlebotomy Coordinator: Milo Engle DO Lymphocytes (Bld) [#/Vol] 1.28 10*3/uL Normal 1.10-3.70 [facility] Comment on above: Performed By: #### B MAGY MUÑIZ, PT #### [facility] [place] [address] Phlebotomy Coordinator: Milo Engle DO Lymphocytes/100 WBC (Bld) 22 % Low 24-44 [facility] Comment on above: Performed By: #### B ANTONINO CDP, PT #### [facility] [address] [facility] [place] [address] Phlebotomy Coordinator: Milo Engle DO Monocytes (Bld) [#/Vol] 0.75 10*3/uL Normal 0.10-1.20 [facility] Comment on above: Performed By: #### B ANTONINO CDP, PT #### [facility] [address] [place] [address] Phlebotomy Coordinator: Milo Engle DO Monocytes/100 WBC (Bld) 13 % High 3-12 [facility] Comment on above: Performed By: #### B ANTONINO CDP, PT #### [facility] [address] [place] [address] Phlebotomy Coordinator: Milo Engle DO Morphology Ian (Bld) [Interp] ANISOCYTOSIS PRESENT Normal [facility] Comment on above: Result Comment: 1+ ECHINOCYTES 1+ ELLIPTOCYTES Performed By: #### B ANTONINO CDP, PT #### [facility] [place] [address] Phlebotomy Coordinator: Milo Engle DO Neutrophil (Seg) 59 % Normal 36-66 [facility] Comment on above: Performed By: #### B MAGY MUÑIZ, PT #### [facility] [place] [address] Phlebotomy Coordinator: Milo Engle DO Erythrocyte distribution width (RBC) [Ratio] 20.2 % High 11.5-14.9 [facility] Comment on above: Performed By: #### B MAGY MUÑIZ, PT #### [facility] [address] [facility] [place] [address] Phlebotomy Coordinator: Milo Engle DO Hematocrit (Bld) [Volume fraction] 33.1 % Low 41.0-53.0 [facility] Comment on above: Performed By: #### B MAGY MUÑIZ, PT #### [facility] [place] [address] Phlebotomy Coordinator: Milo Engle DO Hemoglobin (Bld) [Mass/Vol] 9.9 g/dL Low 13.5-17.5 [facility] Comment on above: Performed By: #### B MAGY MUÑIZ, PT #### [facility] [address] [place] [address] Phlebotomy Coordinator: Milo Engle DO MCH (RBC) [Entitic mass] 24.3 pg Low 26.0-34.0 [facility] Comment on above: Performed By: #### B MAGY MUÑIZ, PT #### [facility] [place] [address] Phlebotomy Coordinator: Milo Engle DO MCHC (RBC) [Mass/Vol] 29.9 g/dL Low 31.0-37.0 [facility] Comment on above: Performed By: #### B MAGY MUÑIZ, PT #### [facility] [address] [place] [address] Phlebotomy Coordinator: Milo Engle DO MCV (RBC) [Entitic vol] 81.3 fL Normal 80.0-100.0 [facility] Comment on above: Performed By: #### B MAGY MUÑIZ, PT #### [facility] [address] [place] [address] Phlebotomy Coordinator: Milo Engle DO NRBC Automated 0.0 per 100 WBC Normal 0 [facility] Comment on above: Performed By: #### MAGY PAK, PT #### [facility] [address] [place] [address] Phlebotomy Coordinator: Milo Engle DO Platelet mean volume (Bld) [Entitic vol] 9.6 fL Normal 8.0-13.5 [facility] Comment on above: Performed By: #### B MAGY MUÑIZ, PT #### [facility] [address] [place] [address] Phlebotomy Coordinator: Milo Engle DO Platelets (Bld) [#/Vol] 165 10*3/uL Normal 150-450 [facility] Comment on above: Performed By: #### B ROBYNXMAGY, PT #### [facility] [address] [place] [address] Phlebotomy Coordinator: Milo Engle DO RBC (Bld) [#/Vol] 4.07 10*6/uL Low 4.21-5.77 [facility] Comment on above: Performed By: #### B MPXMAGY, PT #### [facility] [address] [place] [address] Phlebotomy Coordinator: Milo Engle DO WBC (Bld) [#/Vol] 5.8 10*3/uL Normal 3.5-11.0 [facility] Comment on above: Performed By: #### B MAGY MUÑIZ, PT #### [facility] [address] [place] [address] Phlebotomy Coordinator: Milo Engle DO Ferritinon 10-03-2024 Ferritin [Mass/Vol] 54 ng/mL Normal [facility] Comment on above: No reference range e stablished for this age/gender. Result Comment: No r eference range established for this age/gender. Performed By: #### B MAGY MUÑIZ, PT #### [facility] [address] [place] [address] Phlebotomy Coordinator: Milo Engle DO Haptoglobinon 10-03-2024 Haptoglobin [Mass/Vol] 244 mg/dL High 30 - 200 mg/dL [facility] Haptoglobin 244 mg/dL High 30-200 [facility] Comment on above: Performed By: #### B ROBYNXMAGY, PT #### [facility] [address] [place] [address] Phlebotomy Coordinator: Milo Engle DO Iron Binding Cap.on 10-04-19 25 Iron [Mass/Vol] 18 ug/dL Low 61-157 [facility] Comment on above: Performed By: #### B MPX, MAGY, PT #### [facility] [address] [facility] [place] [address] Phlebotomy Coordinator: Milo Engle DO % Fe Saturation 8 % Low 20-55 [facility] Comment on above: Performed By: #### B MPX, MAGY, PT #### [facility] [address] [facility] [place] [address] Phlebotomy Coordinator: Milo Engle DO Total Fe Binding Cap 235 ug/dL Low 250-450 [facility] Comment on above: Performed By: #### B MPXMAGY, PT #### [facility] [address] [facility] [place] [address] Phlebotomy Coordinator: Milo Engle DO Unbound Fe Bind Cap 217 ug/dL Normal 112-347 [facility] Comment on above: Performed By: #### B MAGY MUÑIZ, PT #### [facility] [address] [facility] [place] [address] Phlebotomy Coordinator: Milo Engle DO Iron and TIBCon 10-03-2024 Iron binding capacity [Mass/Vol] 235 ug/dL Low 250 - 450 ug/dL [facility] Iron saturation [Mass fraction] 8 % Low 20 - 55 % [facility] UIBC 217 ug/dL 112 - 347 ug/dL [facility] LEGIONELLA ANTIGEN, URINEon 10-03-2024 L. pneumophila 1 Ag IA.rapid Ql (U) Negative NEGATIVE [facility] Comment on above: L. pneumophila serog roup 1 antigen not detected. A negative result does not exclude infection with Leginella pnemophila serogroup 1 nor does it rule out other microbial-caused respiratory infections of disease caused by other serogroups of Legionella pneumophila. [facility] Lactate Dehydrogenaseon 09-23 Interpretation and review of laboratory results Abnormal [facility] LDH [Catalytic activity/Vol] 132 U/L Low 135 - 225 U/L [facility] LDH [Catalytic activity/Vol] 132 U/L Low 135-225 [facility] Comment on above: Performed By: #### B MPX, CDP, PT #### [facility] [address] [facility] [place] [address] Phlebotomy Coordinator: Milo Engle DO Legionella Ag, Uron 10-04-19 25 Legionella Ag, Ur Negative Normal NEG [facility] Comment on above: Result Comment: L. p neumophila serogroup 1 antigen not detected. A negative result does not exclude infection with Leginella pnemophila serogroup 1 nor does it rule out other microbial-caused respiratory infections of disease caused by other serogroups of Legionella pneumophila. Performed By: #### O BS #### [facility] [address] [facility] [place] [address] Phlebotomy Coordinator: Milo Engle DO MRSA DNA Probe, Nasalon 09-23 Specimen Description .NASAL SWAB [facility] MRSA, DNA, Nasalon MRSA, DNA, Nasal Negative Normal NEG [facility] Comment on above: NEGATIVE: MRSA DNA n ot detected by nucleic acid amplification. Results should be used as an adjunct to nosocomial control efforts to identify patients needing enhanced precautions. The test is not intended to identify patients with staphylococcal infections. Results should not be used to guide or monitor treatment for MRSA infections. Result Comment: NEGA TIVE: MRSA DNA not detected by nucleic acid amplification. Results should be used as an adjunct to nosocomial control efforts to identify patients needing enhanced precautions. The test is not intended to identify patients with staphylococcal infections. Results should not be used to guide or monitor treatment for MRSA infections. Performed By: #### O BS #### [facility] [address] [facility] [place] [address] Phlebotomy Coordinator: Milo Engle DO Magnesiumon 10-03-2024 Magnesium [Mass/Vol] 2.2 mg/dL 1.6 - 2 .4 mg/dL [facility] Magnesium [Mass/Vol] 2.2 mg/dL Normal 1.6-2.4 [facility] Comment on above: Performed By: #### B MPX, CDP, PT #### [facility] [address] [place] [address] Phlebotomy Coordinator: Milo Engle DO No Panel Informationon 10-03 Interpretation and review of laboratory results Abnormal [facility] PTon 10-03-2024 INR Coag (PPP) [Relative time] 1.7 {INR} Normal [facility] Comment on above: Result Comment: Therapeutic Range: Moderate Anticoagulant Intensity: INR = 2.0-3.0 High Anticoagulant Intensity: INR = 2.5-3.5 Performed By: #### B MPX, CDP, PT #### [facility] [address] [place] [address] Phlebotomy Coordinator: Milo Engle DO PT Coag (PPP) [Time] 22.0 s High 11.8-14.6 [facility] Comment on above: Performed By: #### B MPX, CDP, PT #### [facility] [address] [place] [address] Phlebotomy Coordinator: Milo Engle DO Protime-INRon 10-03-2024 INR Coag (PPP) [Relative time] 1.7 {INR} [facility] Comment on above: Therapeutic Range: Moderate Anticoagulant Intensity: INR = 2.0-3.0 High Anticoagulant Intensity: INR = 2.5-3.5 Interpretation and review of laboratory results Abnormal [facility] PT Coag (PPP) [Time] 22.0 s High [facility] Retic Counton 10-03-2024 Absolute Retic 0.038 M/uL Normal 0.030-0.08 0 [facility] Comment on above: Performed By: #### B MPX, CDP, PT #### [facility] [address] [facility] [place] [address] Phlebotomy Coordinator: Milo Engle DO IRF 11.9 % Normal 2.7-18.3 [facility] Comment on above: Performed By: #### B MPX CDP, PT #### [facility] [address] [facility] [place] [address] Phlebotomy Coordinator: Milo Engle DO Retic Count 0.9 % Normal 0.5-2.5 [facility] Comment on above: Performed By: #### B MAGY MUÑIZ, PT #### [facility] [address] [facility] [place] [address] Phlebotomy Coordinator: Milo Engle DO Retic Hemoglobin 23.4 pg Low 28.2-35.7 [facility] Comment on above: Performed By: #### B MAGY MUÑIZ, PT #### [facility] [address] [facility] [place] [address] Phlebotomy Coordinator: Milo Engle DO Reticulocyteson 10-03-2024 Immature reticulocytes/Total reticulocytes (Bld) 11.9 % 2.7 - 18.3 % [facility] Interpretation and review of laboratory results Abnormal [facility] Retic Hemoglobin 23.4 pg Low 28.2 - 35.7 pg [facility] Reticulocytes (Bld) [#/Vol] 0.038 10*3/uL [facility] Reticulocytes/100 RBC (Bld) 0.9 % 0.5 - 2.5 % [facility] Vitamin B12 & Folateon 10-03 Cobalamin (Vitamin B12) [Mass/Vol] 377 pg/mL 232 - 1245 pg/mL [facility] Folate [Mass/Vol] 28.5 ng/mL High 4.8 - 24.2 ng/mL [facility] Interpretation and review of laboratory results Abnormal [facility] Basic Metabolic Panelon 09-23 Anion gap [Moles/Vol] 11 mmol/L 9 - 16 mmol/L [facility] Calcium [Mass/Vol] 8.8 mg/dL 8.6 - 10. 4 mg/dL [facility] Chloride [Moles/Vol] 106 mmol/L 98 - 10 7 mmol/L [facility] CO2 [Moles/Vol] 24 mmol/L 20 - 31 mmol/L [facility] Creatinine [Mass/Vol] 1.9 mg/dL High 0.7 - 1.2 mg/dL [facility] Est, Glom Filt Rate 35 Low - PINF [facility] Comment on above: These results are not intended for use [...] following therapy that affects renal tubular secretion. Glucose [Mass/Vol] 105 mg/dL High 74 - 99 mg/dL [facility] Interpretation and review of laboratory results Abnormal [facility] Potassium [Moles/Vol] 3.8 mmol/L 3.7 - 5.3 mmol/L [facility] Sodium [Moles/Vol] 141 mmol/L 136 - 145 mmol/L [facility] Urea nitrogen [Mass/Vol] 22 mg/dL 8 - 23 mg/dL [facility] Basic Metabolic Profon 10-02 -2024 Anion gap [Moles/Vol] 11 mmol/L Normal 9-16 [facility] Comment on above: Performed By: #### C DP, BMP, PT, TSHX #### [facility] [address] [place] [address] Phlebotomy Coordinator: Milo Engle DO Calcium [Mass/Vol] 8.8 mg/dL Normal 8.6-10.4 [facility] Comment on above: Performed By: #### C DP, BMP, PT, TSHX #### [facility] [address] [facility] [place] [address] Phlebotomy Coordinator: Milo Engle DO Chloride [Moles/Vol] 106 mmol/L Normal 98-107 [facility] Comment on above: Performed By: #### C DP, BMP, PT, TSHX #### [facility] [address] [facility] [place] [address] Phlebotomy Coordinator: Milo Engle DO CO2 [Moles/Vol] 24 mmol/L Normal 20-31 [facility] Comment on above: Performed By: #### C DP, BMP, PT, TSHX #### [facility] [address] [facility] [place] [address] Phlebotomy Coordinator: Milo Engle DO Creatinine [Mass/Vol] 1.9 mg/dL High 0.7-1.2 [facility] Comment on above: Performed By: #### C DP, BMP, PT, TSHX #### [facility] [address] [facility] [place] [address] Phlebotomy Coordinator: Milo Engle DO GFR/1.73 sq M.predicted among non-blacks MDRD (S/P/Bld) [Vol rate/Area] 35 mL/min/{1.73_m2} Low >60 [facility] Comment on above: Result Comment: These results are not intended for [...] following therapy that affects renal tubular secretion. Performed By: #### C DP, BMP, PT, TSHX #### [facility] [address] [facility] [place] [address] Phlebotomy Coordinator: Milo Engle DO Glucose [Mass/Vol] 105 mg/dL High 74-99 [facility] Comment on above: Performed By: #### C DP, BMP, PT, TSHX #### [facility] [address] [place] [address] Phlebotomy Coordinator: Milo Engle DO Potassium [Moles/Vol] 3.8 mmol/L Normal 3.7-5.3 [facility] Comment on above: Performed By: #### C DP, BMP, PT, TSHX #### [facility] [address] [place] [address] Phlebotomy Coordinator: Milo Engle DO Sodium [Moles/Vol] 141 mmol/L Normal 136-145 [facility] Comment on above: Performed By: #### C DP, BMP, PT, TSHX #### [facility] [address] [place] [address] Phlebotomy Coordinator: Milo Engle DO Urea nitrogen [Mass/Vol] 22 mg/dL Normal 8-23 [facility] Comment on above: Performed By: #### C DP, BMP, PT, TSHX #### [facility] [address] [place] [address] Phlebotomy Coordinator: Milo Engle DO CBC with Auto Differentialon 10-02-2024 Basophils (Bld) [#/Vol] 0 10*3/uL B on [facility] Basophils/100 WBC (Bld) 0 % 0 - 2 % B on [facility] Eosinophils (Bld) [#/Vol] 0.07 10*3/uL [facility] Eosinophils/100 WBC (Bld) 1 % 0 - 4 % [facility] Erythrocyte distribution width (RBC) [Ratio] 20.6 % High 11.5 - 14.9 % [facility] Hematocrit (Bld) [Volume fraction] 38.8 % Low 41.0 - 53.0 % [facility] Hemoglobin (Bld) [Mass/Vol] 11 g/dL Low 13.5 - 17.5 g/dL [facility] Immature granulocytes (Bld) [#/Vol] 0.07 10*3/uL [facility] Immature granulocytes/100 WBC (Bld) 1 % High 0 [facility] Interpretation and review of laboratory results Abnormal [facility] Lymphocytes/100 WBC (Bld) 13 % Low 24 - 44 % [facility] Lymphocytes/100 WBC (Bld) 0.95 % Low [facility] MCH (RBC) [Entitic mass] 24.3 pg Low 26.0 - 34.0 pg [facility] MCHC (RBC) [Mass/Vol] 28.4 g/dL Low 31.0 - 37.0 g/dL [facility] MCV (RBC) [Entitic vol] 85.7 fL 80.0 - 100.0 fL [facility] Monocytes/100 WBC (Bld) 14 % High 3 - 12 % B on [facility] Monocytes/100 WBC (Bld) 1.02 % B on [facility] Morphology Ian (Bld) [Interp] ANISOCYTOSIS PRESENT [facility] Morphology Ian (Bld) [Interp] 1+ ELLIPTOCYTES [facility] Morphology Ian (Bld) [Interp] 1+ ECHINOCYTES [facility] Neutrophils/100 WBC (Bld) 71 % High 36 - 66 % [facility] Nucleated RBC/100 WBC (Bld) [Ratio] 0 % 0 per 100 WBC [facility] Platelet mean volume (Bld) [Entitic vol] 10 fL 8.0 - 13.5 fL [facility] Platelets (Bld) [#/Vol] 245 10*3/uL [facility] RBC (Bld) [#/Vol] 4.53 10*6/uL 4.21 - 5.77 m/uL [facility] Segmented neutrophils/100 WBC (Bld) 5.19 % [facility] WBC other (Bld) [#/Vol] 7.3 B on [facility] CBC with Diffon 10-02-2024 Abs. Basophil 0.00 k/uL Normal 0.00-0.20 [facility] Comment on above: Performed By: #### C DP, BMP, PT, TSHX #### [facility] [place] [address] Phlebotomy Coordinator: Milo Engle DO Abs.Imm.Granulocyte 0.07 k/uL Normal 0.00-0.30 [facility] Comment on above: Performed By: #### C DP, BMP, PT, TSHX #### [facility] [address] [place] [address]. [place] [address] Phlebotomy Coordinator: Milo Engle DO Abs.Neutrophil (Seg) 5.19 k/uL Normal 1.50-8.10 [facility] Comment on above: Performed By: #### C DP, BMP, PT, TSHX #### [facility] [address] [place] [address] Phlebotomy Coordinator: Milo Engle DO Basophils/100 WBC (Bld) 0 % Normal 0-2 [facility] Comment on above: Performed By: #### C DP, BMP, PT, TSHX #### [facility] [address] [place] [address] Phlebotomy Coordinator: Milo Engle DO Eosinophils (Bld) [#/Vol] 0.07 10*3/uL Normal 0.00-0.44 [facility] Comment on above: Performed By: #### C DP, BMP, PT, TSHX #### [facility] [address] [place] [address] Phlebotomy Coordinator: Milo Engle DO Eosinophils/100 WBC (Bld) 1 % Normal 0-4 [facility] Comment on above: Performed By: #### C DP, BMP, PT, TSHX #### [facility] [address] [place] [address] Phlebotomy Coordinator: Milo Engle DO Immature granulocytes/100 WBC (Bld) 1 % High 0 [facility] Comment on above: Performed By: #### C DP, BMP, PT, TSHX #### [facility] [address] [place] [address] Phlebotomy Coordinator: Milo Engle DO Lymphocytes (Bld) [#/Vol] 0.95 10*3/uL Low 1.10-3.70 [facility] Comment on above: Performed By: #### C DP, BMP, PT, TSHX #### [facility] [address] [place] [address] Phlebotomy Coordinator: iMlo Engle DO Lymphocytes/100 WBC (Bld) 13 % Low 24-44 [facility] Comment on above: Performed By: #### C DP, BMP, PT, TSHX #### [facility] [address] [place] [address] Phlebotomy Coordinator: Milo Engle DO Monocytes (Bld) [#/Vol] 1.02 10*3/uL Normal 0.10-1.20 [facility] Comment on above: Performed By: #### C DP, BMP, PT, TSHX #### [facility] [place] [address] Phlebotomy Coordinator: Milo Engle DO Monocytes/100 WBC (Bld) 14 % High 3-12 [facility] Comment on above: Performed By: #### C DP, BMP, PT, TSHX #### [facility] [place] [address] Phlebotomy Coordinator: Milo Engle DO Morphology Ian (Bld) [Interp] ANISOCYTOSIS PRESENT Normal [facility] Comment on above: Result Comment: 1+ ELLIPTOCYTES 1+ ECHINOCYTES Performed By: #### C DP, BMP, PT, TSHX #### [facility] [address] [place] [address] Phlebotomy Coordinator: Milo Engle DO Neutrophil (Seg) 71 % High 36-66 [facility] Comment on above: Performed By: #### C DP, BMP, PT, TSHX #### [facility] [place] [address] Phlebotomy Coordinator: Milo Engle DO Erythrocyte distribution width (RBC) [Ratio] 20.6 % High 11.5-14.9 [facility] Comment on above: Performed By: #### C DP, BMP, PT, TSHX #### [facility] [place] [address] Phlebotomy Coordinator: Milo Engle DO Hematocrit (Bld) [Volume fraction] 38.8 % Low 41.0-53.0 [facility] Comment on above: Performed By: #### C DP, BMP, PT, TSHX #### [facility] [place] [address] Phlebotomy Coordinator: Milo Engle DO Hemoglobin (Bld) [Mass/Vol] 11.0 g/dL Low 13.5-17.5 [facility] Comment on above: Performed By: #### C DP, BMP, PT, TSHX #### [facility] [place] [address] Phlebotomy Coordinator: Milo Engle DO MCH (RBC) [Entitic mass] 24.3 pg Low 26.0-34.0 [facility] Comment on above: Performed By: #### C DP, BMP, PT, TSHX #### [facility] [place] [address] Phlebotomy Coordinator: Milo Engle DO MCHC (RBC) [Mass/Vol] 28.4 g/dL Low 31.0-37.0 [facility] Comment on above: Performed By: #### C DP, BMP, PT, TSHX #### [facility] [place] [address] Phlebotomy Coordinator: Milo Engle DO MCV (RBC) [Entitic vol] 85.7 fL Normal 80.0-100.0 [facility] Comment on above: Performed By: #### C DP, BMP, PT, TSHX #### [facility] [address] [place] [address] Phlebotomy Coordinator: Milo Engle DO NRBC Automated 0.0 per 100 WBC Normal 0 [facility] Comment on above: Performed By: #### C DP, BMP, PT, TSHX #### [facility] [address] [place] [address] Phlebotomy Coordinator: Milo Engle DO Platelet mean volume (Bld) [Entitic vol] 10.0 fL Normal 8.0-13.5 [facility] Comment on above: Performed By: #### C DP, BMP, PT, TSHX #### [facility] [address] [place] [address] Phlebotomy Coordinator: Milo Engle DO Platelets (Bld) [#/Vol] 245 10*3/uL Normal 150-450 [facility] Comment on above: Performed By: #### C DP, BMP, PT, TSHX #### [facility] [address] [place] [address] Phlebotomy Coordinator: Milo Engle DO RBC (Bld) [#/Vol] 4.53 10*6/uL Normal 4.21-5.77 [facility] Comment on above: Performed By: #### C DP, BMP, PT, TSHX #### [facility] [address] [place] [address] Phlebotomy Coordinator: Milo Engle DO WBC (Bld) [#/Vol] 7.3 10*3/uL Normal 3.5-11.0 [facility] Comment on above: Performed By: #### C DP, BMP, PT, TSHX #### [facility] [address] [place] [address] Phlebotomy Coordinator: Milo Engle DO MRSA, DNA, Nasalon Specimen Description .NASAL SWAB Normal [facility] Comment on above: Performed By: #### O BS #### [facility] [address] [place] [address] Phlebotomy Coordinator: Milo Engle DO No Panel Informationon 10-02 [facility] PTon 10-02-2024 INR Coag (PPP) [Relative time] 1.9 {INR} Normal [facility] Comment on above: Result Comment: Therapeutic Range: Moderate Anticoagulant Intensity: INR = 2.0-3.0 High Anticoagulant Intensity: INR = 2.5-3.5 Performed By: #### C DP, BMP, PT, TSHX #### [facility] [address] [facility] [place] [address] Phlebotomy Coordinator: Milo Engle DO PT Coag (PPP) [Time] 23.2 s High 11.8-14.6 [facility] Comment on above: Performed By: #### C DP, BMP, PT, TSHX #### [facility] [address] [place] [address] Phlebotomy Coordinator: Milo Engle DO Procalcitoninon 10-02-2024 Procalcitonin [Mass/Vol] 0.08 ng/mL 0.00 - 0.09 ng/mL [facility] Comment on above: Suspected Sepsis: <0.50 ng/mL Low likelihood of sepsis. 0.50-2.00 ng/mL Increased likelihood of sepsis. Antibiotics encouraged. >2.00 ng/mL High risk of sepsis/shock. Antibiotics strongly encouraged. Suspected Lower Resp Tract Infections: <0.24 ng/mL Low likelihood of bacterial infection. >0.24 ng/mL Increased likelihood of bacterial infection. Antibiotics encouraged. With successful antibiotic therapy, PCT levels should decrease rapidly. (Half-life of 24 to 36 hours.) Procalcitonin values from samples collected within the first 6 hours of systemic infection may still be low. Retesting may be indicated. Values from day 1 and day 4 can be entered into the Change in Procalcitonin Calculator (www.okxcbi-yer-hedtwttpxa.Pressmart) to determine the patient's Mortality Risk Prognosis In healthy neonates, plasma Procalcitonin (PCT) concentrations increase gradually after , reaching peak values at about 24 hours of age then decrease to normal values below 0.5 ng/mL by 48-72 hours of age. [facility] Procalcitonin 0.08 ng/mL Normal 0.00-0.09 [facility] Comment on above: Result Comment: Suspected Sepsis: <0.50 ng/mL Low likelihood of sepsis. 0.50-2.00 ng/mL Increased likelihood of sepsis. Antibiotics encouraged. >2.00 ng/mL High risk of sepsis/shock. Antibiotics strongly encouraged. Suspected Lower Resp Tract Infections: <0.24 ng/mL Low likelihood of bacterial infection. >0.24 ng/mL Increased likelihood of bacterial infection. Antibiotics encouraged. With successful antibiotic therapy, PCT levels should decrease rapidly. (Half-life of 24 to 36 hours.) Procalcitonin values from samples collected within the first 6 hours of systemic infection may still be low. Retesting may be indicated. Values from day 1 and day 4 can be entered into the Change in Procalcitonin Calculator (www.ikkzxj-lhn-jehepolgqb.Pressmart) to determine the patient's Mortality Risk Prognosis In healthy neonates, plasma Procalcitonin (PCT) concentrations increase gradually after , reaching peak values at about 24 hours of age then decrease to normal values below 0.5 ng/mL by 48-72 hours of age. Performed By: #### [facility] #### [facility] [id number] Phlebotomy Coordinator: Loi Oliver MD #### PRCAL #### [facility] [address] [place] [address] Phlebotomy Coordinator: Milo Engle DO Protime-INRon 10-02-2024 INR Coag (PPP) [Relative time] 1.9 {INR} [facility] Comment on above: Therapeutic Range: Moderate Anticoagulant Intensity: INR = 2.0-3.0 High Anticoagulant Intensity: INR = 2.5-3.5 Interpretation and review of laboratory results Abnormal [facility] PT Coag (PPP) [Time] 23.2 s High [facility] Resp Viral Panelon Adenovirus Not detected Normal [facility] Comment on above: Performed By: #### R RELASTER #### [facility] [address] [place] [address] Phlebotomy Coordinator: Milo Engle DO [address] [address] Phlebotomy Coordinator: MD Patricia Correiat.parapertussis Not detected Normal [facility] Comment on above: Performed By: #### R RELASTER #### [facility] [address] [place] [address] Phlebotomy Coordinator: Milo Engle DO [address] [address] Phlebotomy Coordinator: Loi Oliver MD Bordetella pertussis Not detected Normal [facility] Comment on above: Performed By: #### R RELASTER #### [facility] [address] [place] [address] Phlebotomy Coordinator: Milo Engle [address] [address] Phlebotomy Coordinator: Loi Oliver MD Chlamyd.pneumoniae Not detected Normal [facility] Comment on above: Performed By: #### R RELASTER #### [facility] [address] [place] [address] Phlebotomy Coordinator: Milo Engle [employer] [address] [place] [address] Phlebotomy Coordinator: Loi Oliver MD Coronavirus 229E Not detected Normal [facility] Comment on above: Performed By: #### R RELASTER #### [facility] [address] [facility] [address] Phlebotomy Coordinator: Milo Engle [employer] [address] Phlebotomy Coordinator: Loi Oliver MD Coronavirus HKU1 Not detected Normal [facility] Comment on above: Performed By: #### R RELASTER #### [facility] [address] [place] [address] Phlebotomy Coordinator: Milo Engle [employer] [address] Phlebotomy Coordinator: Loi Oliver MD Coronavirus NL63 Not detected Normal [facility] Comment on above: Performed By: #### R RELASTER #### [facility] [address] [place] [address] Phlebotomy Coordinator: Milo Engle [employer] [address] Phlebotomy Coordinator: Loi Oliver MD Coronavirus OC43 Not detected Normal [facility] Comment on above: Performed By: #### R RELASTER #### [facility] [address] [place] [address] Phlebotomy Coordinator: Milo Engle [employer] [place] [address] Phlebotomy Coordinator: Loi Oliver MD Human Metapneumo Detected Abnormal [facility] Comment on above: Performed By: #### R RELASTER #### [facility] [address] [place] [address] Phlebotomy Coordinator: Milo Engle [employer] [address] Phlebotomy Coordinator: Loi Oliver MD Influenza A Not detected Normal [facility] Comment on above: Performed By: #### R RELASTER #### [facility] [address] [place] [address] Phlebotomy Coordinator: Milo Engle [employer] [address] Phlebotomy Coordinator: Loi Oliver MD Influenza B Not detected Normal [facility] Comment on above: Performed By: #### R RELASTER #### [facility] [address] [place] [address] Phlebotomy Coordinator: Miol Engle [employer] [address] Phlebotomy Coordinator: Loi Oliver MD Mycoplas.pneumoniae Not detected Normal [facility] Comment on above: Result Comment: Perf ormed by multiplexed nucleic acid assay. Performed By: #### R RELASTER #### [facility] [address] [place] [address] Phlebotomy Coordinator: Milo Engle [employer] [address] Phlebotomy Coordinator: Loi Oliver MD Parainfluenza 1 Not detected Normal [facility] Comment on above: Performed By: #### R RELASTER #### [facility] [address] [place] [address] Phlebotomy Coordinator: Milo Engle [employer] [address] Phlebotomy Coordinator: Loi Oliver MD Parainfluenza 2 Not detected Normal [facility] Comment on above: Performed By: #### R RELASTER #### [facility] [address] [place] [address] Phlebotomy Coordinator: Milo Engle [address] [address] Phlebotomy Coordinator: Loi Oliver MD Parainfluenza 3 Not detected Normal [facility] Comment on above: Performed By: #### R RELASTER #### [facility] [address] [place] [address] Phlebotomy Coordinator: Milo Engle [address] [address] Phlebotomy Coordinator: Loi Oliver MD Parainfluenza 4 Not detected Normal [facility] Comment on above: Performed By: #### R RELASTER #### [facility] [address] [place] [address] Phlebotomy Coordinator: Milo Engle [employer] [address] Phlebotomy Coordinator: Loi Oliver MD Resp Syncytial Virus Not detected Normal [facility] Comment on above: Performed By: #### R RELASTER #### [facility] [address] [place] [address] Phlebotomy Coordinator: Milo Engle [employer] [address] Phlebotomy Coordinator: Loi Oliver MD Rhino/Enterovirus Not detected Normal [facility] Comment on above: Performed By: #### R RELASTER #### [facility] [address] [place] [address] Phlebotomy Coordinator: Milo Engle [facility] [address] [place] [address] Phlebotomy Coordinator: Loi Oliver MD SARS-CoV-2 (COVID-19) RNA AKRI+probe Ql (Unsp spec) Not detected Normal [facility] Comment on above: Performed By: #### R RELASTER #### [facility] [address] [facility] [place] [address] Phlebotomy Coordinator: Milo Engle [address] [address] Phlebotomy Coordinator: Loi Oliver MD Source: .NASOPHARYNGEAL SWAB Normal [facility] Comment on above: Performed By: #### R RELASTER #### [facility] [address] [place] [address] Phlebotomy Coordinator: Milo Engle [address] [address] Phlebotomy Coordinator: Loi Oliver MD Respiratory Panel, Molecular , with COVID-19 (Restricted: peds pts or suitable admitted adults)on 10-02-2024 Adenovirus DNA KARI+non-probe Ql (Nph) Not detected Not Detected [facility] B. parapertussis [id number] DNA KARI+non-probe Ql (Nph) Not detected Not Detected [facility] B. pertussis DNA KARI+probe Ql (Unsp spec) Not detected Not Detected [facility] C. pneumoniae DNA KARI+non-probe Ql (Nph) Not detected Not Detected [facility] FLUAV RNA KARI+non-probe Ql (Nph) Not detected Not Detected [facility] FLUBV RNA KARI+non-probe Ql (Nph) Not detected Not Detected [facility] HCoV 229E RNA KARI+non-probe Ql (Nph) Not detected Not Detected [facility] HCoV HKU1 RNA KARI+non-probe Ql (Nph) Not detected Not Detected [facility] HCoV NL63 RNA KARI+non-probe Ql (Nph) Not detected Not Detected [facility] HCoV OC43 RNA KARI+non-probe Ql (Nph) Not detected Not Detected [facility] hMPV RNA KARI+non-probe Ql (Nph) Detected Abnormal Not Detected [facility] Interpretation and review of laboratory results Abnormal [facility] M. pneumoniae DNA KARI+non-probe Ql (Nph) Not detected Not Detected [facility] Comment on above: Performed by [facility] nucleic acid assay. Parainfluenza virus 1 RNA KARI+non-probe Ql (Nph) Not detected Not Detected [facility] Parainfluenza virus 2 RNA KARI+non-probe Ql (Nph) Not detected Not Detected [facility] Parainfluenza virus 3 RNA KARI+non-probe Ql (Nph) Not detected Not Detected [facility] Parainfluenza virus 4 RNA KARI+non-probe Ql (Nph) Not detected Not Detected [facility] Rhinovirus+Enterovirus RNA KARI+non-probe Ql (Nph) Not detected Not Detected [facility] RSV RNA KARI+non-probe Ql (Nph) Not detected Not Detected [facility] SARS-CoV-2 (COVID-19) RNA KARI+non-probe Ql (Nph) Not detected Not Detected [facility] Specimen Description .NASOPHARYNGEAL SWAB [facility] TSH reflex to FT4on 10-03-19 25 TSH Qn 1.29 m[IU]/L [facility] TSH w/reflex to FT4on 2024 Thyroid Stim. Horm. 1.29 uIU/mL Normal 0.27-4.20 [facility] Comment on above: Performed By: #### C DP, BMP, PT, TSHX #### [facility] [address] [place] [address] Phlebotomy Coordinator: Milo Engle DO Urinalysis w/ Microon 8 Bacteria FEW Abnormal NONE [facility] Comment on above: Performed By: #### O BS #### [facility] [address] [place] [address] Phlebotomy Coordinator: Milo Engle DO Bilirubin, SemiQt,Ur Negative Normal NEG [facility] Comment on above: Performed By: #### O BS #### [facility] [place] [address] Phlebotomy Coordinator: Milo Enlge DO Blood, Urine TRACE Abnormal NEG [facility] Comment on above: Performed By: #### O BS #### [facility] [address] [place] [address] Phlebotomy Coordinator: Milo Engle DO Casts 6 TO 9 Abnormal NONE [facility] Comment on above: Performed By: #### O BS #### [facility] [address] [place] [address] Phlebotomy Coordinator: Milo Engle DO Clarity (U) Clear Normal CLEAR [facility] Comment on above: Performed By: #### O BS #### [facility] [address] [place] [address] Phlebotomy Coordinator: Milo Engle DO Color (U) Yellow Normal YEL [facility] Comment on above: Performed By: #### O BS #### [facility] [address] [place] [address] Phlebotomy Coordinator: Milo Engle DO Epithelial cells LM Ql (Urine sed) 0 TO 2 Normal [facility] Comment on above: Performed By: #### O BS #### [facility] [address] [place] [address] Phlebotomy Coordinator: Milo Engle DO Glucose Ql (U) Negative Normal NEG [facility] Comment on above: Performed By: #### O BS #### [facility] [address] [place] [address] Phlebotomy Coordinator: Milo Engle DO Ketones Ql (U) Negative Normal NEG [facility] Comment on above: Performed By: #### O BS #### [facility] [address] [place] [address] Phlebotomy Coordinator: Milo Engle DO Leukocyte esterase Test strip Ql (U) MOD Abnormal NEG [facility] Comment on above: Performed By: #### O BS #### [facility] [address] [place] [address] Phlebotomy Coordinator: Milo Engle DO Nitrite,Ur Positive Abnormal NEG [facility] Comment on above: Performed By: #### O BS #### [facility] [place] [address] Phlebotomy Coordinator: Milo Engle DO PH,Ur 6.0 Normal 5.0-8.0 [facility] Comment on above: Performed By: #### O BS #### [facility] [address] [place] [address] Phlebotomy Coordinator: Milo Engle DO Protein Ql (U) 1+ mg/dL Abnormal NEG [facility] Comment on above: Performed By: #### O BS #### [facility] [place] [address] Phlebotomy Coordinator: Milo Engle DO Spec. Kendrick,Ur 1.017 Normal 1.000-1.03 0 [facility] Comment on above: Performed By: #### O BS #### [facility] [place] [address] Phlebotomy Coordinator: Milo Engle DO Urine RBC's 6 TO 9 Abnormal R02 [facility] Comment on above: Performed By: #### O BS #### [facility] [place] [address] Phlebotomy Coordinator: Milo Engle DO Urine WBC's 51 TO 100 Abnormal R05 [facility] Comment on above: Performed By: #### O BS #### [facility] [address] [place] [address] Phlebotomy Coordinator: Milo Engle DO Urobilinogen,Ur Normal Normal 0.0-1.0 [facility] Comment on above: Performed By: #### O BS #### [facility] [address] [facility] [place] [address] Phlebotomy Coordinator: Milo Engle DO Urinalysis with Microscopico n 10-02-2024 Bacteria LM Ql (Urine sed) FEW Abnormal None [facility] Bilirubin Ql (U) Negative NEGATIVE [facility] Casts LM.LPF (Urine sed) [#/Area] 6 TO 9 Abnormal None /LPF [facility] Clarity (U) Clear Clear [facility] Color (U) Yellow Yellow [facility] Epithelial cells LM.HPF (Urine sed) [#/Area] 0 TO 2 /HPF [facility] Glucose Test strip (U) [Mass/Vol] Negative NEGATIVE mg/dL [facility] Hemoglobin Auto test strip Ql (U) TRACE Abnormal NEGATIVE [facility] Interpretation and review of laboratory results Abnormal [facility] Ketones (U) [Mass/Vol] Negative NEGAT BUZZ mg/dL [facility] Leukocyte esterase Test strip Ql (U) MOD Abnormal NEGATIVE [facility] Nitrite Ql (U) Positive Abnormal NEGATIVE [facility] [place] [facility] pH (U) 6 [pH] 5.0 - 8.0 [facility] Protein (U) [Mass/Vol] 1+ Abnormal NEGAT BUZZ mg/dL [facility] RBC LM.HPF (Urine sed) [#/Area] 6 TO 9 Abnormal 0 TO 2 /HPF [facility] Specific gravity (U) [Rel density] 1.017 1.000 - 1.030 [facility] Urobilinogen Qn (U) Normal 0.0 - 1. 0 EU/dL [facility] WBC LM.HPF (Urine sed) [#/Area] 51 TO 100 Abnormal 0 TO 5 /HPF [facility] Urine Cultureon 10-01-2024 Bacteria identified Cx Nom (U) ORGANISM: Klebsiella oxytoca (O:KLEOXY) [place] Count >100,000 ORGANISM: Enterobacter cloacae complex (O:ENTCLOCPLX) [place] Count >100,000 Aerobic RITESH Charge (NMIC56) SUSCEPTIBILITY ORGANISM: O:KLEOXY ANTIBIOTIC INTERPRETATION RITESH Amikacin S <16 Amoxacillin/K Clavulanate S <8 Ampicillin/Sulbactam S 88/4 Aztreonam S <4 Cefazolin S 8 Cefepime S <2 Ceftazidime S <1 Ceftazidime/Avibactam S <4 Ceftolozane/Tazobactam S <2 Ceftriaxone S <1 Cefuroxime S <4 Ciprofloxacin S <0.25 Ertapenem S <0.5 Gentamicin S <2 Levofloxacin S <0.5 Meropenem S <1 Meropenem/Vaborbactam S <2 Nitrofurantoin S <32 Piperacillin/Tazobactam S <8 Tetracycline S <4 Tigecycline S <2 Tobramycin S <2 Trimethoprim/Sulfamethoxaz ole S <0.5 Aerobic RITESH Charge (NMIC56) SUSCEPTIBILITY ORGANISM: O:ENTCLOCPLX ANTIBIOTIC INTERPRETATION RITESH Amikacin S <16 Aztreonam R 16 Cefepime S <2 Ceftazidime R >16 Ceftriaxone R >32 Cefuroxime R >16 Ciprofloxacin S <0.25 Ertapenem S <0.5 Gentamicin S <2 Levofloxacin S <0.5 Meropenem S <1 Meropenem/Vaborbactam S <2 Nitrofurantoin I 64 Piperacillin/Tazobactam IB 16 Tetracycline S <4 Tigecycline S <2 Tobramycin [...] RESISTANT TO ALL B-LACTAM DRUGS. PERFORMED BY: [place] [address] PATHOLOGIST PRODUCTION PROOFREADER ED CRUZ M.D. Normal [facility] Comment on above: Performed By: #### A ИРИНА, CUU #### [address] Urine cultureOrdered By: Freddie Hansen on 10-01-2024 Bacteria identified Cx Nom (U) Abnormal [facility] Bacteria identified Cx Nom (U) Abnormal [facility] US aortaon 09-30-2024 US aorta [facility] [address] [place] [address] Ultrasound Report Signed Patient: Alex Anderson MR#: [id number] [birth year] : 1945 Acct:[id number] Age/Sex: 78 / M ADM Date: 09/23/24 Loc: [facility] Room: Type: [facility] Attending Dr: Margarito Valentine MD Ordering Provider: Margarito Valentine MD Date of Service: 09/23/24 US/US aorta: I71.40 - Abdominal aortic aneurysm, without rupture, unsp... Copies to: Margarito Valentine MD ULTRASOUND OF THE ABDOMINAL AORTA: CLINICAL INFORMATION: Prior endovascular aneurysm repair with stent graft. COMPARISON : 5.3 cm maximum AP diameter aneurysm sac from previous CT scan TECHNIQUE AND FINDINGS: Multiple ultrasonographic scans of the abdominal aorta were obtained and show: Following measurement were obtained: Proximal height: Not visualized width : Not visualized Mid height: Not visualized width : Not visualized Distal height: 5.3 cm width : 5.58 cm US/US aorta IMPRESSION: 5.6 CM INFRARENAL ABDOMINAL AORTIC ANEURYSM SAC. Impression dictated by: Margarito Valentine MD,IVETT,FSVS 09/30/2024 8:31 AM Dictation Location: RADDOC- Tech: Juani Steward Transcribed By: LIONEL 09/30/24830 Dictated By: Margarito Valentine MD 09/30/24829 Signed By: 09/30/24830 Normal [facility] US arterial duplex LE BIon 0 09-30-2024 US arterial duplex LE BI [facility] [address] [place] [address] Ultrasound Report Signed Patient: Alex Anderson MR#: [id number] 36 : 1945 Acct:[id number] Age/Sex: 78 / M ADM Date: 09/23/24 Loc: [facility] Room: Type: [facility] Attending Dr: Margarito Valentine MD Ordering Provider: Margarito Valentine MD Date of Service: 09/23/24 US/US arterial duplex LE BI: 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 Flow was identified. Right lower extremity: The diameter of the right popliteal artery was normal. Flow is normal. US/US arterial duplex LE BI IMPRESSION: Positive study for left popliteal artery aneurysm. Impression dictated by: Margarito Valentine MD,FACS,VS 09/30/2024 8:30 AM Dictation Location: RAD-DOC-04 Tech: Juani Steward Transcribed By: LIONEL 09/30/24829 Dictated By: Margarito Valentine MD 09/30/24828 Signed By: 09/30/24829 Normal [facility] Urine Cultureon 09-28-2024 Bacteria identified Cx Nom (U) ORGANISM: Enterobacter cloacae complex (O:ENTCLOCPLX) [place] Count >100,000 ORGANISM: Enterobacter cloacae complex (O:ENTCLOCPLX) [place] Count >100,000 Aerobic RITESH Charge (NMIC56) SUSCEPTIBILITY ORGANISM: O:ENTCLOCPLX ANTIBIOTIC INTERPRETATION RITESH Amikacin S <16 Aztreonam R 16 Cefepime S <2 Ceftazidime R 16 Ceftriaxone R >32 Cefuroxime R >16 Ciprofloxacin S <0.25 Ertapenem S <0.5 Gentamicin S <2 Levofloxacin S <0.5 Meropenem S <1 Meropenem/Vaborbactam S <2 Nitrofurantoin I 64 Piperacillin/Tazobactam I 32 Tetracycline S <4 Tigecycline S <2 Tobramycin S <2 Trimethoprim/Sulfamethoxaz ole S <0.5 Aerobic RITESH Charge (NMIC56) SUSCEPTIBILITY ORGANISM: O:ENTCLOCPLX ANTIBIOTIC INTERPRETATION RITESH Amikacin S <16 Aztreonam R >16 Cefepime S <2 Ceftazidime R >16 Ceftriaxone R 32 Cefuroxime R >16 Ciprofloxacin S <0.25 Ertapenem S <0.5 Gentamicin S <2 Levofloxacin S <0.5 Meropenem S <1 Meropenem/Vaborbactam S <2 Nitrofurantoin I 64 Piperacillin/Tazobactam I 32 Tetracycline R >8 Tigecycline S <2 Tobramycin S <2 Trimethoprim/Sulfamethoxaz [...] RESISTANT TO ALL B-LACTAM DRUGS. PERFORMED BY: [place] [address] [place] [address] PATHOLOGIST PRODUCTION PROOFREADER ED CRUZ M.D. Normal [facility] Comment on above: Performed By: #### A DDONUAPLUS, CUU #### [facility] [address] Urine cultureOrdered By: Carolina Bo on 09-28-2024 Bacteria identified Cx Nom (U) Abnormal [facility] Urinalysis macro (dipstick) panel (U)on 09-21-2024 Bilirubin, UA Negative Negative - 4(70) +++ mg/dL [facility] Blood, UA Negative Negative - 50 Fletcher/mcL [facility] Clarity, UA Clear [facility] Color, UA Yellow [facility] Glucose, UA Negative Negative - 2000(110) ++++ mg/dL [facility] Interpretation and review of laboratory results Abnormal [facility] Ketones, UA Positive Negative - 160(16) ++++ mg/dL [facility] Leukocytes, UA Negative Negative - 500+++ Ed/mcL [facility] Nitrite, UA Negative Negative - Positive [facility] pH, UA 6 5 - 9 [facility] Protein, UA Positive Negative - 2000(20) ++++ mg/dL [facility] Spec Grav, UA 1.025 1 - 1.03 [facility] Urobilinogen, UA 0.2 0.2 - 12 mg/dL [facility] ECG 12 Leadon 09-10-2024 ECG revealed normal sinus rhythm, right axis deviation, IVCD, septal myocardial infarction of undetermined age, diffuse repolarization abnormalities, abnormal ECG [facility] Work Phone: Ambulatory Visit Summaryon 0 09-09-2024 Ambulatory Visit Summary Ambulatory Visit Summary ALEX ANDERSON :1945 Visit Date:09/09/2024 Ambulatory Visit Instructions Your Care Team Attending Physician - Patricia MONTEZ, Fabi Rich Primary Care Physician - IDANIA CASILLAS, STANLEY Rich This Is Your Medications List albuterol (Albuterol (Eqv-ProAir HFA) 90 mcg/inh inhalation aerosol) amiodarone (amiodarone 200 mg Tab) amlodipine apixaban (Eliquis 2.5 mg oral tablet) atorvastatin (atorvastatin 80 mg Tab) bacillus coagulans-inulin (Vitafusion Fiber Well + Probiotics Gummies oral tablet, chewable) cephalexin (Keflex 250 mg Cap) clopidogrel ferrous sulfate (ferrous sulfate (as elemental iron) 45 mg oral tablet, extended release) furosemide (furosemide 40 mg Tab) methimazole (methimazole 5 mg Tab) metoprolol multivitamin nitroglycerin (nitroglycerin 0.4 mg sublingual Tab) potassium chloride (Klor-Con) warfarin (warfarin 2 mg Tab) Procedures Performed Flexible cystoscopy (04/06/2024), Flexible cystoscopy (10/03/2023), Cystoscope (03/11/2023), TURBT - Transurethral resection of bladder tumor (09/12/2022), Cystoscopy (07/31/2022). What to do next Scheduled Follow-Up Appointments Friday. 2024 2:00 PM EDT With: ARLENE CASILLAS, Katia Hall Where: [facility] [address] [place] [address] [place] [address]- Medications What How Much When Instructions Unchanged [...] tablet, chewable) By Mouth Every day Unchanged cephalexin (Keflex 250 mg Cap) 1 Capsules By Mouth Every day Unchanged clopidogrel 75 Milligram Unchanged ferrous sulfate (ferrous sulfate (as elemental iron) 45 mg oral tablet, extended release) 1 Tablets By Mouth Every day Unchanged furosemide (furosemide 40 mg Tab) TAKE 1 TABLET BY MOUTH EVERY DAY Unchanged methimazole (methimazole 5 mg Tab) See instructions Unchanged metoprolol 25 Milligram By Mouth Every day Unchanged multivitamin Every day Unchanged nitroglycerin (nitroglycerin 0.4 mg sublingual Tab) 1 Tablets Sublingual Every 5 minutes as needed for for chest pain Unchanged potassium chloride (Klor-Con) 20 Milliequivalent Unchanged warfarin (warfarin 2 mg Tab) 1 Tablets Allergies No Known Allergies No Known Medication Allergies Problems Ongoing - Any problem that you are currently receiving treatment for. 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 [facility] ITPon 09-05-2024 [place] [address] Cardiac Rehab Report Signed Patient: ALEX ANDERSON MR#: [id number] : 1945 Acct:[id number] Age/Sex: 78 / M ADM Date: 08/23/24 Loc: CR Attending Dr: TEO AL Ordering Physician: Martita Garnica D.O. Date of Service: 08/23/24 Procedure(s): ITP Accession Number(s): [id number] cc: The [facility] Test Date: 2024-08-23 Pat Name: ALEX ANDERSON Department: Room: - Gender: Male Retail Pharmacy Manager: : 1945 Requested By: MARTITA GARNICA Order Number: [id number] Reading MD: MARTITA GARNICA Interpretive Statements Session Date: Electronically Signed On 09-05-2024 19:58:42 EDT by MARTITA GARNICA Dictated By: Martita Garnica D.O. Signed By: 09/05/24195809/05/241958 DD/ 1441 TD/TT: Automotive Manufacturer: [facility] Radiologgiovany rosales MD - 09/05/2024 [place] [address] Cardiac Rehab Report Signed Patient: ALEX ANDERSON MR#: [id number] : 1945 Acct:[id number] Age/Sex: 78 / M ADM Date: 08/23/24 Loc: CR Attending Dr: TEO AL Ordering Physician: Martita Garnica D.O. Date of Service: 08/23/24 Procedure(s): ITP Accession Number(s): [id number] cc: [facility] Test Date: 2024-08-23 Pat Name: ALEX ANDERSON Department: Room: - Gender: Male Retail Pharmacy Manager: : 1945 Requested By: MARTITA GARNICA Order Number: [id number] Reading MD: MARTITA GARNICA Interpretive Statements Session Date: Electronically Signed On 09-05-2024 19:58:42 EDT by MARTITA GARNICA Dictated By: Martita Garnica D.O. Signed By: 09/05/24195809/05/241958 DD/ 40 TD/TT: Automotive Manufacturer: [facility] ITPOrdered By: Iker irene on 09-05-2024 [facility] Work Phone: ALL LIPID PROFILE (FASTING)o n 09-02-2024 CHOL HDL RATIO 2 [facility] Comment on above: 3.3 - 4.4 LOW RISK 4.4 - 7.1 AVERAGE RISK 7.1 - 11.0 MODERATE RISK >11.0 HIGH RISK Cholesterol [Mass/Vol] 86 mg/dL NINF - 200 mg/dL [facility] Cholesterol in HDL [Mass/Vol] 43 mg/dL 40 - 60 mg/dL [facility] Comment on above: > or =60 mg/dl - LOW CARDIOVASCULAR RISK <40 mg/dl - HIGH CARDIOVASCULAR RISK Magnesium [Mass/Vol] 26.8 mg/dL [facility] Comment on above: <100 mg/dl OPTIMAL 100-129 mg/dl NEAR OR ABOVE OPTIMAL 130-159 mg/dl BORDERLINE HIGH 160-189 mg/dl HIGH >190 mg/dl VERY HIGH Magnesium [Mass/Vol] 16.2 mg/dL [facility] Triglyceride [Mass/Vol] 81 mg/dL NINF - 150 mg/dL [facility] ALL THYROID STIM HORMONEon 0 09-02-2024 TSH Qn 0.537 m[IU]/L [facility] No Panel Informationon 09-02 [facility] ITPon 08-23-2024 Radiology Study observation (narrative) [facility] Ambulatory Visit Summaryon 0 08-12-2024 Ambulatory Visit Summary Ambulatory Visit Summary ALEX ADNERSON :1945 Visit Date:08/12/2024 Ambulatory Visit Instructions Your Diagnosis Urine retention Your Care Team Attending Physician - JOSSELIN BARR, HEATHER Luu Primary Care Physician - IDANIA CASILLAS, STANLEY Rich This Is Your Medications List albuterol (Albuterol (Eqv-ProAir HFA) 90 mcg/inh inhalation aerosol) amiodarone (amiodarone 200 mg Tab) amlodipine apixaban (Eliquis 2.5 mg oral tablet) atorvastatin (atorvastatin 80 mg Tab) bacillus coagulans-inulin (Vitafusion Fiber Well + Probiotics Gummies oral tablet, chewable) cephalexin (Keflex 250 mg Cap) clopidogrel ferrous sulfate (ferrous sulfate (as elemental iron) 45 mg oral tablet, extended release) furosemide (furosemide 40 mg Tab) methimazole (methimazole 5 mg Tab) metoprolol multivitamin nitroglycerin (nitroglycerin 0.4 mg sublingual Tab) potassium chloride (Klor-Con) warfarin (warfarin 2 mg Tab) Procedures Performed Flexible cystoscopy (04/06/2024), Flexible cystoscopy (10/03/2023), Cystoscope (03/11/2023), TURBT - Transurethral resection of bladder tumor (09/12/2022), Cystoscopy (07/31/2022). What to do next Scheduled Follow-Up Appointments 2024 10:40 AM EDT With: Fabi Antonio Where: [facility] [address] [place] [address] [place] [address]- Friday 2:00 PM EDT With: ARLENE CASILLAS, Katia Hall Where: [facility] [address] [place] [address]- Medications What How Much When Instructions Unchanged [...] tablet, chewable) By Mouth Every day Unchanged cephalexin (Keflex 250 mg Cap) 1 Capsules By Mouth Every day Unchanged clopidogrel 75 Milligram Unchanged ferrous sulfate (ferrous sulfate (as elemental iron) 45 mg oral tablet, extended release) 1 Tablets By Mouth Every day Unchanged furosemide (furosemide 40 mg Tab) TAKE 1 TABLET BY MOUTH EVERY DAY Unchanged methimazole (methimazole 5 mg Tab) See instructions Unchanged metoprolol 25 Milligram By Mouth Every day Unchanged multivitamin Every day Unchanged nitroglycerin (nitroglycerin 0.4 mg sublingual Tab) 1 Tablets Sublingual Every 5 minutes as needed for for chest pain Unchanged potassium chloride (Klor-Con) 20 Milliequivalent Unchanged warfarin (warfarin 2 mg Tab) 1 Tablets Allergies No Known Allergies No Known Medication Allergies Problems Ongoing - Any problem that you are currently receiving treatment for. 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 Normal [facility] TRANSTHORACIC ECHO (TTE) [facility] 08-06-2024 TRANSTHORACIC ECHO (TTE) LIMITED [address], Suite [facility], [place] [address] TRANSTHORACIC ECHOCARDIOGRAM REPORT Patient Name: ALEX Sawyer Physician: [id number] Ana Castro MD Study Date: 08/06/2024 Ordering Provider: [id number] TEO AL MRN/PID: [id number] Fellow: Nurse: Date of /Age: 7 1945 / 78 years Renal Dialysis Rn: Marlyn Castro RDCS, RT(R), RDMS, RVT Gender Assigned at M Additional Staff: : Height: 187.96 cm Admit Date: Weight: 92.53 kg Admission Status: Outpatient BSA / BMI: 2.19 m2 / 26.19 Department Location: [facility] Heart kg/m2 Dominic Blood Pressure: 98 /64 mmHg Study Type: TRANSTHORACIC ECHO (TTE) LIMITED Diagnosis/ICD: Atherosclerotic heart disease of [place] coronary artery without angina pectoris-I25.10; ST elevation (STEMI) myocardial infarction of unspecified site-I21.3 Indication: STEMI CPT Codes: Echo Limited-80150 Patient History: Smoker: Former. Pertinent History: A-Fib, [...] AoV Mean P.0 mmHg (1.7-11.5mmHg) LVOT Max Diamond: 0.66 m/s (<=1.1m/s) AoV VTI: 28.25 cm [...] 30mmHg) PULMONIC VALVE: Normal Ranges: PV Max Diamond: 0.6 m/s (0.6-0.9m/s) PV Max P.6 mmHg [id number] Ana Castro MD Electronically signed on 08/11/2024 at 5:54:03 PM Final [facility] C Urineon 08-02-2024 Bacteria identified Cx Nom (U) Microbiology PROCEDURE: Urine Culture [R1] SOURCE: U Cath BODY SITE: COLLECTED DATE/TIME: 07/29/2024 14:33 EST RECEIVED DATE/TIME: 07/30/2024 17:43 EST START DATE/TIME: 07/30/2024 17:43 EST FREE TEXT SOURCE: ARLENE CASILLAS, Katia JACOBS MD, Katia Hall FINAL REPORTS Final Report [] Verified Date/Time: 08/02/2024 08:59 EDT >100,000 cfu/ml Enterobacter cloacae Ertapenem -Resistant. >100,000 cfu/ml Enterobacter cloacae #2 Different Biotype. SUSCEPTIBILITY RESULTS _ LEGEND: S=Susceptible, N/R=Not Reported, Blank=Data not available, or drug not advisable or tested, I=Intermediate, ESBL=Extended spectrum beta-lactamase, R=Resistant, TFG=Thymidine-dependent strain, KEILA=Beta-lactamase positive, RITESH=mcg/m;(mg/L), S*=Predicted susceptible interp, R*=Predicted resistant interp Entclo Entclo #2 Antibiotic RITESH Dilutn RITESH Interp RITESH Dilutn RITESH Interp Ampicillin >16 R 16 R* Ampicillin/ >16/8 R <=8/4 R* Sulbactam Aztreonam >16 R <=4 S Cefazolin >16 R >16 R Cefepime 16 I <=2 S Ceftazidime >16 R <=1 S Ceftazidime/ <=8 S <=8 S Avibactam Ceftriaxone >2 R <=1 S Cefuroxime >16 R <=4 R* Ciprofloxacin <=0.25 S <=0.25 S Ertapenem >1 R <=0.5 S Gentamicin <=2 S <=2 S Levofloxacin <=0.5 S <=0.5 S Meropenem <=1 S <=1 S Nitrofurantoin 64 I <=32 S Piperacillin/ >64 R <=8 S Tazobactam Tetracycline <=4 S <=4 S Tobramycin <=2 S <=2 S Trimethoprim/ <=2/38 S <=2/38 S Sulfa Performing Locations R1: This test was performed at: [facility], [address] [place] [address] [place], [address]- , [place], Normal [facility] Comment on above: Performed By: #### 2 [id number] #### [facility] [address] [place] [address] Erythrocyte distribution wid th Auto (RBC) [Ratio]on 08-02-2024 Erythrocyte distribution width (RBC) [Ratio] Erythrocyte distribution width [Ratio] by Automated count High 11.0-15.0 [facility] Estimated glomerular filtrat ion rate (GFR) non- Americanon 08-02-2024 GFR/1.73 sq M.predicted among non-blacks MDRD (S/P/Bld) [Vol rate/Area] Estimated glomerular filtration rate (GFR) non- Low >=60 mL/min/1.7 3m 2 [facility] Hematocrit Auto (Bld) [Volum e fraction]on 08-02-2024 Hematocrit (Bld) [Volume fraction] Hematocrit [Volume Fraction] of Blood by Automated count Low 42.0-54.0 [facility] Hemoglobin [Mass/volume] in Bloodon 08-02-2024 Hemoglobin (Bld) [Mass/Vol] Hemoglobin [Mass/volume] in Blood Low 14.0-18.0 [facility] Iron binding capacity [Mass/ volume] in Serum or Plasmaon 08-02-2024 Iron binding capacity [Mass/Vol] Iron binding capacity [Mass/volume] in Serum or Plasma 250.0-450. 0 [facility] Iron saturation [Mass Fracti on] in Serum or Plasmaon 08-02-2024 Iron saturation [Mass fraction] Iron saturation [Mass Fraction] in Serum or Plasma [facility] Laboratory - Chemistry and C hemistry - challengeon 08-02-2024 Albumin [Mass/Vol] 3.2 g/dL Low 3.4-5.0 [facility] Calcium [Mass/Vol] 8.5 mg/dL 8.5-10.1 [facility] Chloride [Moles/Vol] 107 mmol/L 98-107 [facility] CO2 [Moles/Vol] 28.3 mmol/L 21.0-32.0 [facility] Cobalamin (Vitamin B12) [Mass/Vol] 399 pg/mL 232-1245 [facility] Comment on above: Performed at: - L [address] [id number] Director: Morgan Carpenter PhD, Phone: [phone] Creatinine [Mass/Vol] 2.07 mg/dL High 0.70-1.30 [facility] Ferritin [Mass/Vol] 35.0 ng/mL 26.0-388.0 [facility] GFR/1.73 sq M.predicted MDRD (S/P/Bld) [Vol rate/Area] 38 mL/min/{1.73_m2} Low >=60 mL/min/1.7 3m 2 [facility] Glucose [Mass/Vol] 106 mg/dL 74-106 [facility] Iron [Mass/Vol] 22.0 ug/dL Low 65.0-175.0 [facility] Magnesium [Mass/Vol] 2.1 mg/dL 1.8-2.4 [facility] Potassium [Moles/Vol] 4.1 mmol/L 3.5-5.1 [facility] Sodium [Moles/Vol] 144 mmol/L 136-145 [facility] Urate [Mass/Vol] 5.8 mg/dL 3.5-7.2 [facility] Urea nitrogen [Mass/Vol] 28.0 mg/dL High 7.0-18.0 [facility] Urea nitrogen/Creatinine [Mass ratio] 13.5 mg/mg [facility] Laboratory - Urinalysison Protein (U) [Mass/Vol] 19.4 mg/dL High <=11.9 [facility] Leukocytes [#/volume] correc phil for nucleated erythrocytes in Blood by Automated counon 08-02-2024 WBC corrected for nucl RBC Auto (Bld) [#/Vol] Leukocytes [#/volume] corrected for nucleated erythrocytes in Blood by Automated coun 4.0-11.0 [facility] MCH Auto (RBC) [Entitic mass ]on 08-02-2024 MCH (RBC) [Entitic mass] MCH [Entitic mass] by Automated count Low 25.9-34.0 [facility] MCHC Auto (RBC) [Mass/Vol]on 08-02-2024 MCHC (RBC) [Mass/Vol] MCHC [Mass/volume] by Automated count Low 29.9-35.2 [facility] MCV Auto (RBC) [Entitic vol] on 08-02-2024 MCV (RBC) [Entitic vol] MCV [Entitic vol ume] by Automated count Low 80.0-94.0 [facility] No Panel Informationon 08-02 25-Hydroxy Vitamin D Total 48.3 ng/mL [facility] Comment on above: <20 ng/mL Vit D defi cient20-<30 ng/mL Vit D [id number] ng/mL Vit D sufficient>100 ng/mL Potential Toxicity Folate 19.30 ng/mL 8.60-58.90 [facility] Parathyroid Hormone (Intact) 62 pg/mL 15-65 [facility] Comment on above: Performed at: [facility] [address] [id number] Director: Morgan Carpenter PhD, Phone: [phone] Phosphorus Level 3.1 mg/dL 2.6-4.7 [facility] Urine Random Creatinine 29.50 mg/dL 20.0 0-300. 00 [facility] Platelet mean volume Auto (B ld) [Entitic vol]on 08-02-2024 Platelet mean volume (Bld) [Entitic vol] Platelet mean volume [Entitic volume] in Blood by Automated count 9.5-13.5 [facility] Platelets Auto (Bld) [#/Vol] on 08-02-2024 Platelets (Bld) [#/Vol] Platelets [#/vol ume] in Blood by Automated count 150-450 [facility] RBC Auto (Bld) [#/Vol]on RBC (Bld) [#/Vol] Erythrocytes [#/volu me] in Blood by Automated count Low 4.70-6.10 [facility] Serum or plasma anion gap de terminationon 08-02-2024 Anion gap [Moles/Vol] Serum or plasma an ion gap determination [facility] Urine protein/creatinine rat ioon 08-02-2024 Protein/Creatinine (U) [Ratio] Urine protein/creatinine ratio [facility] ECG 12 Leadon 07-29-2024 ECG revealed normal sinus rhythm with first-degree AV block, septal myocardial infarction of undetermined age, diffuse repolarization abnormalities, abnormal ECG [facility] Work Phone: ITPon 07-25-2024 [place] [address] Cardiac Rehab Report Signed Patient: ALEX ANDERSON MR#: [id number] : 1945 Acct:[id number] Age/Sex: 78 / M ADM Date: 07/23/24 Loc: CR Attending Dr: TEO AL Ordering Physician: Martita Garnica D.O. Date of Service: 07/23/24 Procedure(s): ITP Accession Number(s): [id number] cc: The [facility] Test Date: 2024-07-23 Pat Name: ALEX ANDERSON Department: Room: - Gender: Male Retail Pharmacy Manager: : 1945 Requested By: MARTITA GARNICA Order Number: [id number] Reading MD: MARTITA GARNICA Interpretive Statements Session Date: Electronically Signed On 07-25-2024 8:18:39 EST by MARTITA GARNICA Dictated By: Martita Garnica D.O. Signed By: 07/25/24 0818 07/25/24 0818 DD/ 1540 TD/TT: Automotive Manufacturer: [facility] Radiology, Radiologi MD bobby - 07/25/2024 [place] [address] Cardiac Rehab Report Signed Patient: ALEX ANDERSON MR#: [id number] : 1945 Acct:[id number] Age/Sex: 78 / M ADM Date: 07/23/24 Loc: CR Attending Dr: TEO AL Ordering Physician: Martita Garnica D.O. Date of Service: 07/23/24 Procedure(s): ITP Accession Number(s): [id number] cc: [facility] Test Date: 2024-07-23 Pat Name: ALEX ANDERSON Department: Room: - Gender: Male Retail Pharmacy Manager: : 1945 Requested By: MARTITA GARNICA Order Number: [id number] Silverio MD: MARTITA GARNICA Interpretive Statements Session Date: Electronically Signed On 07-25-2024 8:18:39 EST by MARTITA GARNICA Dictated By: Martita Garnica D.O. Signed By: 07/25/2481707/25/24817 DD/ 1540 TD/TT: Automotive Manufacturer: [facility] ITPOrdered By: Radiologist R adiology on 07-25-2024 [facility] Work Phone: ITPon 07-23-2024 Radiology Study observation (narrative) [facility] Ambulatory Visit Summaryon 0 07-15-2024 Ambulatory Visit Summary Ambulatory Visit Summary ALEX ANDERSON :1945 Visit Date:07/15/2024 Ambulatory Visit Instructions Your Diagnosis Urinary retention Villarreal catheter problem Villarreal catheter problem Anticoagulated, Anticoagulated Your Care Team Attending Physician - JOSSELIN BARR, HEATHER Luu Primary Care Physician - IDANIA CASILLAS, STANLEY Rich This Is Your Medications List cephalexin (Keflex 250 mg Cap) Contact prescribing physician if questions or concerns albuterol (Albuterol (Eqv-ProAir HFA) 90 mcg/inh inhalation aerosol) amiodarone (amiodarone 200 mg Tab) amlodipine apixaban (Eliquis 2.5 mg oral tablet) atorvastatin (atorvastatin 80 mg Tab) bacillus coagulans-inulin (Vitafusion Fiber Well + Probiotics Gummies oral tablet, chewable) clopidogrel ferrous sulfate (ferrous sulfate (as elemental iron) 45 mg oral tablet, extended release) furosemide (furosemide 40 mg Tab) methimazole (methimazole 5 mg Tab) metoprolol multivitamin nitroglycerin (nitroglycerin 0.4 mg sublingual Tab) potassium chloride (Klor-Con) warfarin (warfarin 2 mg Tab) [Image Removed: STOP]Stop taking these medications ciprofloxacin (Cipro 500 mg Tab) Procedures Performed Flexible cystoscopy (04/06/2024), Flexible cystoscopy (10/03/2023), Cystoscope (03/11/2023), TURBT - Transurethral resection of bladder tumor (09/12/2022), Cystoscopy (07/31/2022). Discharge Vitals Heart Rate (Peripheral) 68 Respiratory Rate 18 Blood Pressure 99/60 Height 187 cm Height 74 in Weight 93 kg Weight 205.03 lb BMI 26.59 What to do next Scheduled Follow-Up Appointments Jul. 2024 11:20 AM EDT With: HEATHER OMALLEY PA-C Where: [facility] [address] [place] [address] [place] [address]- Friday. 2024 2:00 PM EDT With: ARLENE CASILLAS, Katia Hall Where: [facility] [address] [place] [address]. [place] [address]- Medications What How Much When Instructions New cephalexin (Keflex 250 mg Cap) 1 Capsules By Mouth Every day Refills: 1 Pickup at [facility]/pharmacy #[id number] Unchanged albuterol (Albuterol (Eqv-ProAir HFA) 90 mcg/ [...] prescribing physician if questions or concerns Unchanged methimazole (methimazole 5 mg Tab) See instructions Contact prescribing physician if questions or concerns Unchanged metoprolol 25 Milligram By Mouth Every day Contact prescribing physician [...] Contact prescribing physician if questions or concerns Pharmacy Information [facility]/pharmacy #[id number]: [address], [place] [id number] [phone] What How Much When Comments Stop Taking ciprofloxacin (Cipro 500 mg Tab) 1 Tablets By Mouth Every day Allergies No Known Allergies No Known Medication Allergies Problems Ongoing - Any problem that you are currently receiving treatment for. 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 Normal [facility] Urology Office/Clinic Noteon 07-15-2024 Urology Office/Clinic Note Urology Office/Clinic Note Chief Complaint cath change/discuss meds HPI Staff 78yr old male pt here for catheter change. & discuss meds. Pt was in the ER at the end of May for catheter blockage. PCP was concerned about the frequency of catheter changes due to blockages. He has been getting them changed more than q4wks. PCP put pt on cephalexin 250mg qd. Wants to know if pt should continue this medication regularly. Pt's does think med has helped. Review of Systems PHQ Score Initial Depression Screen Score: 0 SCORE no fever, chills, malaise, myalgia. no abdominal pain, nausea, vomiting. Physical Exam Vitals & Measurements HR: 68(Peripheral) RR: 18 BP: 99/60 HT: 74 in HT: 187 cm WT: 93 kg WT: 205.03 lb BMI: 26.59 nontoxic appearing. villarreal draining clear yellow urine. no sediment. no blood. Assessment/Plan 1. Urinary retention (R33.9: Retention of urine, unspecified) [...] CIC given their age and overall health. Villarreal changed IO today. Return in 1 mo for change. Ordered: Body Mass Index (BMI) documented 3008F Current tobacco non-user 1036F Depression Screening Negative 3352F E&M of Est. Patient Moderate 30-39 Min 07686 Influenza immunization status assessed 1030F Insertion of temp indwelling bladder cath (villarreal) simple 28216 Medication list documented in medical record 1159F Most recent diastolic blood pressure <80 mm Hg 3078F Patient screen for fall risk: no falls in last year or 1 fall with no injury in last year 1101F Review of all meds by a prescribing practitioner or clinical pharmacist documented in EHR 1160F Systolic BP <130 mm Hg (Most Recent) 3074F 2. Villarreal catheter problem (T83.098A: Other mechanical complication of other urinary catheter, initial encounter) Has been to ER 8 times since September 2023 due to villarreal clogging. 5x there was no blood. 3x it was blocked by clots. does irrigate villarreal regularly (although it was found that for a while she was only using a few ml, but after education she is now flushing w 60ml). PCP started pt on daily suppressive abx. reports they think infection is causing the clog. She says it hasn't clogged in the 30 days he's been on the abx. She would like to continue it. Risks/benefits/side effects discussed. I will give a few refills and we will reassess in 2 mos. If cath clogs at all in the meantime then stop the suppressive abx. 3. 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 Patient Moderate 30-39 Min 85211 4. Bladder cancer (C67.9: Malignant neoplasm of bladder, unspecified) Original TURBT/extraction of 2 bladder calculi 09/12/22 - Noninvasive papillary urothelial carcinoma, low grade. Invasion is not recognized. A small fragment of detrusor muscle is present in the specimen. Last cysto 04/06/24. Next cysto 10/05/24. Orders: cephalexin, 250 mg = 1 cap(s), Oral, Daily, # 30 cap(s), Refills(s) 1, Pharmacy: [facility]/pharmacy #[id number], 187, cm, 07/15/24 10:46:00 EST, Height/Length Dosing, 93, kg, 07/15/24 10:46:00 EST, Weight Dosing sterile water, See Instructions, 500 mL, Refill(s) 5, Irrigate villarreal catheter as needed with 60 cc sterile water, [id number], 187, cm, 04/06/24 11:21:00 EST, Height/Length Dosing, 93, kg, 04/06/24 11:21:00 EST, Weight Dosing Follow-up With When Contact Information JOSSELIN BARR, HEATHER Luu, URL In 1 month [address] 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 Normal [facility] Comment on above: Result Comment: Elec tronically Signed By: HEATHER OMALLEY PA-C\Date and Time Signed: 07/15/24 14:06 EST ALL THYROID STIM HORMONEon 0 07-13-2024 Interpretation and review of laboratory results Abnormal [facility] TSH Qn 0.039 m[IU]/L Low [facility] SRMCOH PROTHROMBIN TIME INR W/O COUMon 06-29-2024 Interpretation and review of laboratory results Abnormal [facility] PT Coag (PPP) [Time] 61.5 s Critically high [facility] Comment on above: RESULTS CALLED TO [facility] BY Vidya Valentine at 1126 TBH INR 7.04 Critically high [facility] Comment on above: RESULTS CALLED TO [facility] BY Vidya Valentine at 1127 DESIRED INR: 2.0-3.0 CONDITIONS NOT LISTED BELOW 2.5-3.5 FOR PROSTHETIC HEART VALVE REPLACEMENT 2.5-3.5 [facility]24 [place] [address] Cardiac Rehab Report Signed Patient: ALEX ANDERSON MR#: [id number] : 1945 Acct:[id number] Age/Sex: 78 / M ADM Date: 06/25/24 Loc: CR Attending Dr: TEO AL Ordering Physician: Martita Garnica D.O. Date of Service: 06/25/24 Procedure(s): ITP Accession Number(s): [id number] cc: The [facility] Test Date: 2024-06-25 Pat Name: ALEX ANDERSON Department: Room: Gender: M Retail Pharmacy Manager: : Requested By: Order Number: [id number] Silverio MD: MARTITA GARNICA Interpretive Statements Session Date: Electronically Signed On 06-25-2024 18:17:01 EST by MARTITA GARNICA Dictated By: Martita Garnica D.O. Signed By: 06/25/24181606/25/241816 DD/ 1308 TD/TT: Automotive Manufacturer: [facility] Guerline Jackson MD - 06/25/[address] [address] Cardiac Rehab Report Signed Patient: ALEX ANDERSON MR#: [id number] : 1945 Acct:[id number] Age/Sex: 78 / M ADM Date: 06/25/24 Loc: CR Attending Dr: TEO AL Ordering Physician: Martita Garnica D.O. Date of Service: 06/25/24 Procedure(s): ITP Accession Number(s): [id number] cc: The [facility] Test Date: 2024-06-25 Pat Name: ALEX ANDERSON Department: Room: Gender: Retail Pharmacy Manager: : Requested By: Order Number: [id number] Reading MD: MARTITA GARNICA Interpretive Statements Session Date: Electronically Signed On 06-25-2024 18:17:01 EST by MARTITA GARNICA Dictated By: Martita Garnica D.O. Signed By: 06/25/24181606/25/241816 DD/ 1308 TD/TT: Automotive Manufacturer: [facility] Radiology Study observation (narrative) [facility] ITPOrdered By: Iker Hall adchi on 06-25-2024 [facility] Work Phone: Urology Office/Clinic Noteon 06-07-2024 Urology Office/Clinic Note Urology Office/Clinic Note HPI Staff 4 wk cath change. History of Present Illness I have reviewed and verified the staff HPI to be accurate for this encounter. Portions of this record may have been created with voice recognition artificial intelligence software, specifically Semanticator, Sportistic and or AdVolume. Substitutions may have occurred due to the inherent limitations of voice recognition and artificial intelligence software. Physical Exam General: Well developed, well nourished, in no acute distress. Here w/ today who does assist in providing some of his history. Assessment/Plan PRW pt 1. Gross hematuria (R31.0: Gross hematuria) [facility] ER 04/28/2024 with complaints of a [...] virus vaccine, inactivated 03/26/2023 Recorded SARS-CoV-2 (COVID-19) [id number] 03/29/2022 Recorded influenza virus vaccine, inactivated 03/16/2022 Recorded influenza virus vaccine, inactivated 03/06/2022 Recorded SARSCoV2 mRNA (more content not included)... Normal [facility] Comment on above: Result Comment: Elec [...] HEATHER OMALLEY PA-C Where: [facility] [address] [place] [address] [place] [address]- Friday 2:00 PM EDT With: Katia JACOBS MD Where: [facility] [address] [place] [address]. [place] [address]- Medications What How Much When Instructions Unchanged [...] for choosing us for your care. Normal [facility] Alanine Aminotransferaseon 1 07-22-2023 ALT [Catalytic activity/Vol] 12 U/L Normal 7-52 [facility] Comment on above: Performed By: #### P TT, PT #### [address] Alanine aminotransferase [En zymatic activity/volume] in Serum or PlasmaOrdered By: Teo Al on 05-21-2024 ALT [Catalytic activity/Vol] Alanine aminotransferase [Enzymatic activity/volume] in Serum or Plasma [facility] Aspartate Amino Transferaseo n 05-21-2024 AST [Catalytic activity/Vol] 13 U/L Normal -39 [facility] Comment on above: Performed By: #### P TT, PT #### [facility] [address] Aspartate aminotransferase [ Enzymatic activity/volume] in Serum or PlasmaOrdered By: Teo Al on 05-21-2024 AST [Catalytic activity/Vol] Aspartate aminotransferase [Enzymatic activity/volume] in Serum or Plasma 39 [facility] Basic Metabolic Panelon 04-26 Anion gap [Moles/Vol] 14.7 mmol/L Normal 6.0-15.0 e [facility] Comment on above: Performed By: #### P TT, PT #### [address] Calcium [Mass/Vol] 9.1 mg/dL Normal 8.6-10.3 [facility] Comment on above: Performed By: #### P TT, PT #### [facility] [address] [place] [address] [place] Chloride [Moles/Vol] 105 mmol/L Normal 98-107 [facility] Comment on above: Performed By: #### P TT, PT #### [address] CO2 [Moles/Vol] 27.8 mmol/L Normal 21.0-31.0 [facility] Comment on above: Performed By: #### P TT, PT #### [facility] [address] [place] [address] [place] Creatinine [Mass/Vol] 2.20 mg/dL High 0.70-1.30 [facility] Comment on above: Performed By: #### P TT, PT #### [facility] [address] Estimated GFR 29.538 mL/Min Normal [facility] Comment on above: Performed By: #### P TT, PT #### [place] [address] [place] Glucose [Mass/Vol] 124 mg/dL High 70-100 [facility] Comment on above: Result Comment: [facility] Glucose Reference Range is dependent on time and content of last meal. Glucose of more than 200 mg/dL in a nonstressed, ambulatory subject supports the diagnosis of Diabetes Mellitus. ADA recommended reference range Performed By: #### P TT, PT #### [facility] [address] Potassium [Moles/Vol] 4.5 mmol/L Normal 3.5-5.1 [facility] Comment on above: Performed By: #### P TT, PT #### [facility] [address] Sodium [Moles/Vol] 143 mmol/L Normal 136-145 [facility] Comment on above: Performed By: #### P TT, PT #### [facility] [address] Urea nitrogen [Mass/Vol] 34 mg/dL High 7-25 [facility] Comment on above: Performed By: #### P TT, PT #### [facility] [address] [place] [address] [place] Basophils Auto (Bld) [#/Vol] Ordered By: Teo Al on 05-21-2024 Basophils (Bld) [#/Vol] Automated basophil count 0.0-0.2 [facility] Basophils/100 WBC Auto (Bld) Ordered By: Teo Al on 05-21-2024 Basophils/100 WBC (Bld) Automated basophil % . [facility] Calcium [Mass/volume] in Ser um or PlasmaOrdered By: Teo Al on 05-21-2024 Calcium [Mass/Vol] Calcium [Mass/volume ] in Serum or Plasma 8.6-10.3 [facility] Carbon dioxide, total [Moles /volume] in Serum or PlasmaOrdered By: Teo Al on 05-21-2024 CO2 [Moles/Vol] Carbon dioxide, tota l [Moles/volume] in Serum or Plasma 21.0-31.0 [facility] Chloride [Moles/volume] in S marium or PlasmaOrdered By: Teo Al on 05-21-2024 Chloride [Moles/Vol] Chloride [Moles/vol ume] in Serum or Plasma 98-107 [facility] Cholesterol [Mass/volume] in Serum or PlasmaOrdered By: Teo Al on 05-21-2024 Cholesterol [Mass/Vol] Cholesterol [Mass /volume] in Serum or Plasma Low 140-200 [facility] Comment on above: Chol less than 200 m g/dl low riskChol 201-239 mg/dl borderline riskChol 240 mg/dl and greater high risk Cholesterol in HDL [Mass/vol ume] in Serum or PlasmaOrdered By: Teo Al on 05-21-2024 Cholesterol in HDL [Mass/Vol] Serum or plasma high density lipoprotein (HDL) cholesterol measurement 23- [facility] Comment on above: HDL CHOL ATP-III CLA SSIFICATION Cardiovascular RiskHDL > or equal to 60 mg/dL LOWHDL < 40 mg/dL HIGH Cholesterol in LDL Calc [Mas s/Vol]Ordered By: Teo Al on 05-21-2024 Cholesterol in LDL [Mass/Vol] Cholesterol in LDL [Mass/volume] in Serum or Plasma by calculation 0-100 [facility] Comment on above: LDL ATP III CLASSIFI CATIONLDL less than 100 mg/dL OptimalLDL 100-129 mg/dL Near or above optimalLDL 130-159 mg/dL Borderline highLDL 160-189 mg/dL HighLDL greater than 189 mg/dL Very high Cholesterol in VLDL Calc [Ma ss/Vol]Ordered By: Teo Al on 05-21-2024 Cholesterol in VLDL [Mass/Vol] Cholesterol in VLDL [Mass/volume] in Serum or Plasma by calculation [facility] Complete Blood Count Auto Di ffon 05-21-2024 Basophils (Bld) [#/Vol] 0.1 10*3/uL Normal 0.0-0.2 [facility] Comment on above: Result Comment: PERF ORMED BY: [address] [place] [address] PATHOLOGIST PRODUCTION PROOFREADER ED CRUZ M.D. Performed By: #### P TT, PT #### [address] Basophils/100 WBC (Bld) 1.0 % Normal . T he [facility] Comment on above: Performed By: #### P TT, PT #### [address] Eosinophils (Bld) [#/Vol] 0.2 10*3/uL Normal 0.0-0.45 [facility] Comment on above: Performed By: #### P TT, PT #### [address] Eosinophils/100 WBC (Bld) 3.3 % Normal . [facility] Comment on above: Performed By: #### P TT, PT #### [address] Erythrocyte distribution width (RBC) [Ratio] 18.1 % High 12.0-14.8 [facility] Comment on above: Performed By: #### P TT, PT #### [address] Hematocrit (Bld) [Volume fraction] 30.3 % Low 38.8-50.0 [facility] Comment on above: Performed By: #### P TT, PT #### [address] Hemoglobin (Bld) [Mass/Vol] 9.5 g/dL Low 13.0-17.0 [facility] Comment on above: Performed By: #### P TT, PT #### [address] Lymphocytes (Bld) [#/Vol] 1.3 10*3/uL Normal 1.00-4.8 [facility] Comment on above: Performed By: #### P TT, PT #### [address] Lymphocytes/100 WBC (Bld) 22.2 % Normal . [facility] Comment on above: Performed By: #### P TT, PT #### [address] MCH (RBC) [Entitic mass] 23.3 pg Low 27.5-35.2 [facility] Comment on above: Performed By: #### P TT, PT #### [address] MCV (RBC) [Entitic vol] 74.4 fL Low 83.5-101 T [facility] Comment on above: Performed By: #### P TT, PT #### [address] Mean Corpuscular HGB Conc 31.3 g/dL Low 32.5-35.6 [facility] Comment on above: Performed By: #### P TT, PT #### [address] Monocytes (Bld) [#/Vol] 0.6 10*3/uL Normal 0.0-0.8 [facility] Comment on above: Performed By: #### P TT, PT #### [address] Monocytes/100 WBC (Bld) 10.2 % Normal . T [facility] Comment on above: Performed By: #### P TT, PT #### [address] Neutrophils (Bld) [#/Vol] 3.8 10*3/uL Normal 1.8-7.7 [facility] Comment on above: Performed By: #### P TT, PT #### [address] Neutrophils/100 WBC (Bld) 63.3 % Normal . [facility] Comment on above: Performed By: #### P TT, PT #### [address] NRBC% 0.1 /100{WBC} Normal 0-0.5 [facility] Comment on above: Performed By: #### P TT, PT #### [address] Platelet mean volume (Bld) [Entitic vol] 8.1 fL Normal 6.6-10.1 [facility] Comment on above: Performed By: #### P TT, PT #### [facility] [address] Platelets (Bld) [#/Vol] 315 10*3/uL Normal 150-450 [facility] Comment on above: Performed By: #### P TT, PT #### [facility] [address] RBC (Bld) [#/Vol] 4.07 10*6/uL Normal 3.90-5.60 [facility] Comment on above: Performed By: #### P TT, PT #### [facility] [address] WBC (Bld) [#/Vol] 6.1 10*3/uL Normal 4.1-10.5 [facility] Comment on above: Performed By: #### P TT, PT #### [address] Creatinine [Mass/volume] in Serum or PlasmaOrdered By: Teo Al on 05-21-2024 Creatinine [Mass/Vol] Creatinine [Mass/v olume] in Serum or Plasma High 0.70-1.30 [facility] ECG 12 Leadon 05-21-2024 ECG revealed normal sinus rhythm, IVCD, diffuse repolarization abnormalities, septal myocardial infarction of undetermined age, abnormal ECG [facility] Work Phone: Eosinophils Auto (Bld) [#/Vo l]Ordered By: Teo Al on 05-21-2024 Eosinophils (Bld) [#/Vol] Automated eosinophil count 0.0-0.45 [facility] Eosinophils/100 WBC Auto (Bl d)Ordered By: Teo Al on 05-21-2024 Eosinophils/100 WBC (Bld) Automated eosinophil % . [facility] Erythrocyte distribution wid th Auto (RBC) [Ratio]Ordered By: Teo Al on 05-21-2024 Erythrocyte distribution width (RBC) [Ratio] Erythrocyte distribution width [Ratio] by Automated count High 12.0-14.8 [facility] Glucose [Mass/volume] in Ser um or PlasmaOrdered By: Teo Al on 05-21-2024 Glucose [Mass/Vol] Glucose [Mass/volume ] in Serum or Plasma High 70-100 [facility] Comment on above: ADA recommended refe rence rangeRandom Glucose Reference Range is dependent on time and content of last meal. Glucose of more than 200 mg/dL in a nonstressed, ambulatory subject supports the diagnosis of Diabetes Mellitus. Hematocrit Auto (Bld) [Volum e fraction]Ordered By: Teo Al on 05-21-2024 Hematocrit (Bld) [Volume fraction] Hematocrit [Volume Fraction] of Blood by Automated count Low 38.8-50.0 [facility] Hemoglobin [Mass/volume] in BloodOrdered By: Teo Al on 05-21-2024 Hemoglobin (Bld) [Mass/Vol] Hemoglobin [Mass/volume] in Blood Low 13.0-17.0 [facility] Leukocytes [#/volume] correc phil for nucleated erythrocytes in Blood by Automated counOrdered By: Teo Al on 05-21-2024 WBC corrected for nucl RBC Auto (Bld) [#/Vol] Leukocytes [#/volume] corrected for nucleated erythrocytes in Blood by Automated coun 4.1-10.5 [facility] Lipid Panelon 05-21-2024 Cholesterol [Mass/Vol] 89 mg/dL Low 140-200 Th e [facility] Comment on above: Result Comment: Chol less than 200 mg/dl low risk Chol 201-239 mg/dl borderline risk Chol 240 mg/dl and greater high risk Performed By: #### P TT, PT #### [facility] [address] [place] [id number] [place] Cholesterol in HDL [Mass/Vol] 41 mg/dL Normal 23-92 [facility] Comment on above: Result Comment: HDL CHOL ATP-III CLASSIFICATION Cardiovascular Risk HDL > or equal to 60 mg/dL LOW HDL < 40 mg/dL HIGH Performed By: #### P TT, PT #### [facility] [address] [place] [address] [place] Cholesterol.total/Sonya sterol in HDL [Mass ratio] 2.2 {ratio} Normal <5.0 [facility] Comment on above: Performed By: #### P TT, PT #### [facility] [address] LDL Cholesterol,Calculated 34 mg/dL Normal 0-100 [facility] Comment on above: Result Comment: LDL ATP III CLASSIFICATION LDL less than 100 mg/dL Optimal LDL 100-129 mg/dL Near or above optimal LDL 130-159 mg/dL Borderline high LDL 160-189 mg/dL High LDL greater than 189 mg/dL Very high Performed By: #### P TT, PT #### [facility] [address] Triglyceride w/Reflex 71 mg/dL Normal 0-149 [facility] Comment on above: Result Comment: TRIG ATP III CLASSIFICATION TRIG less than 150 mg/dL Normal TRIG 150-199 mg/dL Borderline high TRIG 200-500 mg/dL High TRIG greater than 500 mg/dL Very high Standard traceable to the Center for Disease Conrtrol and Prevention (CDC) test method. Performed By: #### P TT, PT #### [facility] [address] VLDL CHOLESTEROL 14 mg/dL Normal [facility] Comment on above: Performed By: #### P TT, PT #### [facility] [address] Lymphocytes Auto (Bld) [#/Vo l]Ordered By: Teo Al on 05-21-2024 Lymphocytes (Bld) [#/Vol] Lymphocytes [#/volume] in Blood by Automated count 1.00-4.8 [facility] Lymphocytes/100 WBC Auto (Bl d)Ordered By: Teo Al on 05-21-2024 Lymphocytes/100 WBC (Bld) Lymphocytes/100 leukocytes in Blood by Automated count . [facility] MCH Auto (RBC) [Entitic mass ]Ordered By: Teo Al on 05-21-2024 MCH (RBC) [Entitic mass] MCH [Entitic mass] by Automated count Low 27.5-35.2 [facility] MCHC Auto (RBC) [Mass/Vol]Or dered By: Teo Al on 05-21-2024 MCHC (RBC) [Mass/Vol] MCHC [Mass/volume] by Automated count Low 32.5-35.6 [facility] MCV Auto (RBC) [Entitic vol] Ordered By: Teo Al on 05-21-2024 MCV (RBC) [Entitic vol] MCV [Entitic vol ume] by Automated count Low 83.5-101 [facility] Monocytes Auto (Bld) [#/Vol] Ordered By: Teo Al on 05-21-2024 Monocytes (Bld) [#/Vol] Automated blood monocyte count 0.0-0.8 [facility] Monocytes/100 WBC Auto (Bld) Ordered By: Teo Al on 05-21-2024 Monocytes/100 WBC (Bld) Automated monocyte % . [facility] Neutrophils Auto (Bld) [#/Vo l]Ordered By: Teo Al on 05-21-2024 Neutrophils (Bld) [#/Vol] Neutrophils [#/volume] in Blood by Automated count 1.8-7.7 [facility] Neutrophils/100 WBC Auto (Bl d)Ordered By: Teo Al on 05-21-2024 Neutrophils/100 WBC (Bld) Automated neutrophil % . [facility] No Panel InformationOrdered By: Teo Al on 05-21-2024 Estimated GFR (CKD-EPI) 29.538 mL/Min [facility] Creatinine Clearance (Chem N/A [facility] Nucleated erythrocytes [Pres ence] in Blood by Automated countOrdered By: Teo Al on 05-21-2024 Nucleated RBC Auto Ql (Bld) Nucleated erythrocytes [Presence] in Blood by Automated count 0-0.5 [facility] Platelet mean volume Auto (B ld) [Entitic vol]Ordered By: Teo Al on 05-21-2024 Platelet mean volume (Bld) [Entitic vol] Platelet mean volume [Entitic volume] in Blood by Automated count 6.6-10.1 [facility] Platelets Auto (Bld) [#/Vol] Ordered By: Teo Al on 05-21-2024 Platelets (Bld) [#/Vol] Platelets [#/vol ume] in Blood by Automated count 150-450 [facility] Potassium [Moles/volume] in Serum or PlasmaOrdered By: Teo Al on 05-21-2024 Potassium [Moles/Vol] Potassium [Moles/v olume] in Serum or Plasma 3.5-5.1 [facility] RBC Auto (Bld) [#/Vol]Ordere d By: Teo Al on 05-21-2024 RBC (Bld) [#/Vol] Erythrocytes [#/volu me] in Blood by Automated count 3.90-5.60 [facility] Serum or plasma anion gap de terminationOrdered By: Teo Al on 05-21-2024 Anion gap [Moles/Vol] Serum or plasma an ion gap determination 6.0-15.0 [facility] Serum or plasma total choles terol/high density lipoprotein (HDL) cholesterol mass ratOrdered By: Teo Al on 05-21-2024 Cholesterol.total/Sonya sterol in HDL [Mass ratio] Serum or plasma total cholesterol/high density lipoprotein (HDL) cholesterol mass rat <5.0 [facility] Sodium [Moles/volume] in Ser um or PlasmaOrdered By: Teo Al on 05-21-2024 Sodium [Moles/Vol] Sodium [Moles/volume ] in Serum or Plasma 136-145 [facility] Thyroid Stimulating Hormoneo n 05-21-2024 TSH Qn 0.11 m[IU]/L Low 0.45-5.33 [facility] Comment on above: Result Comment: PERF ORMED BY: [place] [address] PATHOLOGIST PRODUCTION PROOFREADER ED CRUZ M.D. Performed By: #### P TT, PT #### [address] Thyrotropin [Units/volume] i n Serum or PlasmaOrdered By: Teo Al on 05-21-2024 TSH Qn Thyrotropin [Units/v olume] in Serum or Plasma Low 0.45-5.33 [facility] Triglyceride [Mass/volume] i n Serum or PlasmaOrdered By: Teo Al on 05-21-2024 Triglyceride [Mass/Vol] Triglyceride [Ma ss/volume] in Serum or Plasma 0-149 [facility] Comment on above: TRIG ATP III CLASSIF ICATIONTRIG less than 150 mg/dL NormalTRIG 150-199 mg/dL Borderline highTRIG 200-500 mg/dL High TRIG greater than 500 mg/dL Very highStandard traceable to the Center for Disease Conrtrol and Prevention (CDC) test method. Urea nitrogen [Mass/volume] in Serum or PlasmaOrdered By: Teo Al on 05-21-2024 Urea nitrogen [Mass/Vol] Urea nitrogen [Mass/volume] in Serum or Plasma High 7-25 [facility] WBC Auto (Bld) [#/Vol]Ordere d By: Teo Al on 05-21-2024 WBC (Bld) [#/Vol] Leukocytes [#/volume ] in Blood by Automated count 4.1-10.5 [facility]roVys[facility] Fish and Urine Cyt o ([facility])on 04-12-2024 UVFISH & UC Diagnosis Info Invalid Interpretation Code [facility] Comment on above: Result Comment: A:Ur ine,Bladder [...] with cytology and cystoscopy results. * CPT: 61220, 43400. Microscopic Notes - Microscopic Notes - Abnormal cells 9p21 deletions: Abnormal cells aneploid events: Total cells analyzed: 25 Hematuria: Gross Description Site ID:A color Colorless fixative Alcohol Received 90 mls of slightly cloudy colorless fluid with the patient's name and, Bladder Wash on the vial. Electronically signed by : on: 04/12/2024 16:53:27 Performed By: #### 1 [id number] #### [facility] [address] [place] [address] [place] [address] Ambulatory Visit Summaryon 1 06-06-2023 Ambulatory Visit [...] [facility] [address] , [place] [address]- Medications What How Much When Instructions Unchanged [...] provider may (more content not included)... Normal [facility] Reminderson 04-06-2024 Reminders Reminders From: Dana Rivas To: [facility] - Marlena Jacobs; Sent: 02/20/2024 14:44:26 EDT Show up: 07/24/2024 14:44:00 EST Subject: Cysto/FISH/cytol, cath chng Due Date/Time: 08/16/2024 14:44:00 EDT Reminder/Recall Patient is due in September 2024 for 6 month cysto/fish/cytol, cath change (bt ck) Patient sched 10/05/24 Normal [facility] U[facility] Fish and Urine Cyt o ([facility])on 04-06-2024 [facility] Method of Extraction Bladder Wash Normal [facility] Comment on above: Performed By: #### 1 [id number] #### [facility] [address] [place] [address] [facility] Number of Jars 1 Invalid Interpretation Code [facility] Comment on above: Performed By: #### 1 [id number] #### [facility] [address] [place] [address] [facility] Specimen Bladder Wash Normal [facility] Comment on above: Performed By: #### 1 [id number] #### [facility] [address] [place] [address] [facility] Type of Service Technical Only Normal [facility] Comment on above: Performed By: #### 1 [id number] #### [facility] [address] [place], [place] [id number] Urology Office/Clinic Noteon 04-06-2024 Urology Office/Clinic Note [...] going to start monthly villarreal changes. [1] [facility] ER on 09/15/22 due to catheter clogged. Pt was diagnosed w/ UTI and treated w/ Cipro 500 mg BID for x 7 days. Attempted urocuff, pt was unable to void, PVR 348 cc, cath placed 10/04/22. [2] Pt has been in the ER multiple times due to issues with Villarreal. Most recently, pt presented to [facility] ER 09/29/23 and 09/30/23 due to catheter not draining. [3] Cath changed IO today, see procedure section. 3. BPH with urinary obstruction (N40.1: Benign prostatic hyperplasia with lower urinary tract symptoms) S/p Rezum 06/10/23. Not taking any BPH meds. Maintained with chronic villarreal, see #2. Follow-up With When Contact Information ARLENE CASILLAS, Katia Hall, URL [facility] [address], [place] [address]- Additional Instructions: 6 mos surveillance cysto/bt ck/FISH/cytol Patient Education Indwelling Urinary Catheter Insertion, Care After Cancer Screening for Males Citlalli Almendarez, personally scribed for Dr. Jacobs on 04/06/2024 11:35:18. . Documentation recorded by the scribe, Citlalli Rushing, accurately reflects the services(s) I performed and decisions made by me. Authenticated by Dr. Jacobs on 04/06/2024 11:36:29. Problem List/Past Medical History (more content not included)... Normal [facility] Comment on above: Result Comment: Elec tronically Signed By: Katia JACOBS MD\.br\Date and Time Signed: 04/06/24 11:36 EST\.br\Electronically Co-Signed By: Citlalli Rushing\.br\Date and Time Co-Signed: 04/06/24 11:35 EST ALL HEMOGLOBINon 03-23-2024 Hemoglobin (Bld) [Mass/Vol] 9.5 g/dL Low 14.0 - 18.0 g/dL [facility] Interpretation and review of laboratory results Abnormal [facility] No Panel InformationOrdered By: Rosalie Bailey on 03-08-2024 Quick Strep (POC) [facility] XR chest 2V*on 03-08-2024 XR chest 2V* [facility] [place] [address] XRay Report Signed Patient: Alex Anderson MR#: [id number] 36 : 1945 Acct:[id number] Age/Sex: 78 / M ADM Date: 03/08/24 Loc: [facility] Room: Type: [facility] Attending Dr: Rosalie Bailey APRN Copies [...] Corky Max M.D.03/08/2024 2:03 PM Dictation Location: [place] [address] Transcribed By: LIONEL 03/08/241402 Dictated By: Corky Max II, MD 03/08/241401 Signed By: 03/08/241402 Normal [facility] ALL HEMOGLOBINon 03-04-2024 Hemoglobin (Bld) [Mass/Vol] 10.0 g/dL Low 14.0 - 18.0 g/dL [facility] Interpretation and review of laboratory results Abnormal [facility] Reminderson 02-19-2024 Reminders Reminders From: Dana Rivas To: [facility] - Marlena Jacobs; Sent: 12/02/2023 11:09:10 EDT Show up: [...] ok to keep cysto on 04/06/24.LG Normal [facility] ECG 12 Leadon 02-10-2024 ECG revealed normal sinus rhythm, left axis deviation, 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, QT prolongation, IVCD [facility] Work Phone: Bacteria [Presence] in Urine by AutomatedOrdered By: Rob Almazan on 01-23-2024 Bacteria Auto Ql (U) Rare [HPF] None Seen [facility] Bilirubin Test strip Ql (U)O rdered By: Rob Almazan on 01-23-2024 Bilirubin Ql (U) Negative Negative [facility] Color of Urine by AutoOrdere d By: Rob Almazan on 01-23-2024 Color (U) Yellow Normal Yellow [facility] Comment on above: Order Comment: Name Collection Type:: Villarreal Catheter Performed By: #### A DDONUAPLUS, CUU #### [place] [address] [place] Dipstick and Microscopicon 0 01-23-2024 Bacteria,Urine Rare Normal None Seen [facility] Comment on above: Order Comment: Name Collection Type:: Villarreal Catheter Performed By: #### A DDONUAPLUS, CUU #### [place] [address] [place] Bilirubin,Urine Negative Normal Negative [facility] Comment on above: Order Comment: Name Collection Type:: Villarreal Catheter Performed By: #### A DDONUAPLUS, CUU #### [address] Glucose Ql (U) Normal Normal Normal [facility] Comment on above: Order Comment: Name Collection Type:: Villarreal Catheter Performed By: #### A DDONUAPLUS, CUU #### [place] [address] [place] Hyaline Casts,Urine None Normal 0-8 [facility] Comment on above: Order Comment: Name Collection Type:: Villarreal Catheter Performed By: #### A DDONUAPLUS, CUU #### [place] [address] [place] Mucus,Urine Rare Normal [facility] Comment on above: Order Comment: Name Collection Type:: Villarreal Catheter Result Comment: PERF ORMED BY: [place] [address] PATHOLOGIST PRODUCTION PROOFREADER OREN OWEN M.D. Performed By: #### A DDONUAPLUS, CUU #### [place] [address] [place] Nitrite,Urine Negative Normal Negative [facility] Comment on above: Order Comment: Name Collection Type:: Villarreal Catheter Performed By: #### A DDONUAPLUS, CUU #### [address] Occult Blood,Urine 2+ High Negative [facility] Comment on above: Order Comment: Name Collection Type:: Villarreal Catheter Result Comment: PERF ORMED BY: [place] [address] PATHOLOGIST PRODUCTION PROOFREADER OREN OWEN M.D. Performed By: #### A DDONUAPLUS, CUU #### [place] [address] [place] Protein,Urine Trace High Negative [facility] Comment on above: Order Comment: Name Collection Type:: Villarreal Catheter Performed By: #### A DDONUAPLUS, CUU #### [place] [address] [place] RBC,Urine 20-49 High 0-4 [facility] Comment on above: Order Comment: Name Collection Type:: Villarreal Catheter Performed By: #### A DDONUAPLUS, CUU #### [place] [address] [place] Specificy Kendrick,Urine 1.022 Normal 1.00 1-1.03 0 [facility] Comment on above: Order Comment: Name Collection Type:: Villarreal Catheter Performed By: #### A DDONUAPLUS, CUU #### [place] [address] [place] Urobilinogen,Urine 2 mg/dL High Normal [facility] Comment on above: Order Comment: Name Collection Type:: Villarreal Catheter Performed By: #### A DDONUAPLUS, CUU #### [place] [address] [place] WBC CLUMP, Urine Rare High None Seen [facility] Comment on above: Order Comment: Name Collection Type:: Villarreal Catheter Performed By: #### A DDONUAPLUS, CUU #### [place] [address] [place] WBC,Urine 20-49 High 0-4 [facility] Comment on above: Order Comment: Name Collection Type:: Villarreal Catheter Performed By: #### A DDONUAPLUS, CUU #### [place] [address] [place] ECG 12 lead ECGon 01-23-2024 ECG 12 lead ECG [facility] [place] [address] Electrocardiograph Report Signed Patient: Alex Anderson MR#: [id number] 36 : 1945 Acct:[id number] Age/Sex: 78 / M ADM Date: 01/16/24 Loc: Room: [address] [place] [address] Type: ADM IN Attending Dr: Nas Pruett [...] Acute Anteroseptal infarct Lateral injury pattern ACUTE IL / STEMI Abnormal ECG When compared with ECG of 19-Jan-2024 07:09, Serial changes of Anteroseptal infarct present Confirmed by Misael Campbell ([id number]) on 01/23/2024 11:36:17 AM Referred By: Electronically Signed By: Misael Campbell Transcribed By: MUS Signed By Misael Campbell MD 01/23/24 1136 Normal [facility] Epithelial cells.squamous [# /area] in Urine sediment by Automated countOrdered By: Rob Almazan on 01-23-2024 Epithelial cells.squamous Auto (Urine sed) [#/Area] N/A [facility] Erythrocytes [#/area] in Uri ne sediment by Automated countOrdered By: Rob Almazan on 01-23-2024 RBC Auto (Urine sed) [#/Area] 20-49 [HPF] High 0-4 [facility] Glucose [Mass/volume] in Uri ne by Test stripOrdered By: Rob Almazan on 01-23-2024 Glucose Test strip (U) [Mass/Vol] Normal mg/dL Normal [facility] Hemoglobin Test strip Ql (U) Ordered By: Rob Almazan on 01-23-2024 Hemoglobin Ql (U) 2+ High Negative [facility] Hyaline casts [#/area] in Ur ine sediment by Automated countOrdered By: Rob Almazan on 01-23-2024 Hyaline casts Auto (Urine sed) [#/Area] None [LPF] 0-8 [facility] Ketones [Presence] in Urine by Test stripOrdered By: Rob Almazan on 01-23-2024 Ketones Ql (U) Negative Normal Negative [facility] Comment on above: Order Comment: Name Collection Type:: Villarreal Catheter Performed By: #### A DDONUAPLUS, CUU #### [facility] [address] [place] [address] [place] Leukocyte clumps [Presence] in Urine by AutomatedOrdered By: Rob Almazan on 01-23-2024 Leukocyte clumps Auto Ql (U) Rare [LPF] High None Seen [facility] Leukocyte esterase [Presence ] in Urine by Test stripOrdered By: Rob Almazan on 01-23-2024 Leukocyte esterase Test strip Ql (U) 4+ High Negative [facility] Comment on above: Order Comment: Name Collection Type:: Villarreal Catheter Performed By: #### A DORAONUAPLUS, CUU #### [facility] [address] [place] [address] [place] Leukocytes [#/area] in Urine sediment by Automated countOrdered By: Rob lAmazan on 01-23-2024 WBC Auto (Urine sed) [#/Area] 20-49 [HPF] High 0-4 [facility] Mucus [Presence] in Urine by AutomatedOrdered By: Rob Almazan on 01-23-2024 Mucus Auto Ql (U) Rare [LPF] [facility] Nitrite Test strip Ql (U)Ord ered By: Rob Almazan on 01-23-2024 Nitrite Ql (U) Negative Negative [facility] Protein Test strip (U) [Mass /Vol]Ordered By: Rob Almazan on 01-23-2024 Protein (U) [Mass/Vol] Trace mg/dL High Negative [facility] Specific gravity Test strip (U) [Rel density]Ordered By: Rob Almazan on 01-23-2024 Specific gravity (U) [Rel density] 1.022 1.001-1.03 0 [facility] Urine Cultureon 01-23-2024 Bacteria identified Cx Nom (U) ORGANISM: Enterococcus faecalis (O:ENTFAC) [place] Count 30,000 Aerobic RITESH Charge (PCMIC38) SUSCEPTIBILITY [...] RESISTANT TO ALL B-LACTAM DRUGS. PERFORMED BY: [place] [address] PATHOLOGIST PRODUCTION PROOFREADER OREN OWEN M.D. Normal [facility] Comment on above: Performed By: #### A MAISHA GIFFRODU #### [facility] [address] [place] [address] Urine appearanceOrdered By: Rob Almazan on 01-23-2024 Appearance (U) Clear Normal Clear [facility] Comment on above: Order Comment: Name Collection Type:: Villarreal Catheter Performed By: #### A MAISHA GIFFORDU #### [facility] [address] [place] [address] Urine culture routineOrdered By: Rob Almazan on 01-23-2024 Bacteria identified Cx Nom (U) Enterococcus faecalis Abnormal [facility] Urobilinogen Test strip (U) [Mass/Vol]Ordered By: Rob Almazan on 01-23-2024 Urobilinogen (U) [Mass/Vol] 2 mg/dL High Normal [facility] pH of Urine by Test stripOrd ered By: Rob Almazan on 01-23-2024 pH (U) 5.5 [pH] Normal 5.0-9.0 [facility] Comment on above: Order Comment: Name Collection Type:: Villarreal Catheter Performed By: #### A DDONUAPLUS, CUU #### [facility] [address] Automated basophil %Ordered By: Nas Pruett on 01-21-2024 Basophils/100 WBC (Bld) 0.5 % Normal . [facility] Comment on above: Performed By: #### P TT, PT #### [address] Automated basophil countOrde red By: Nas Pruett on 01-21-2024 Basophils (Bld) [#/Vol] 0.0 10*3/uL Normal 0.0-0.2 [facility] Comment on above: Result Comment: PERF ORMED BY: [place] [address] PATHOLOGIST PRODUCTION PROOFREADER OREN OWEN M.D. Performed By: #### P TT, PT #### [address] Automated blood monocyte cou ntOrdered By: Nas Pruett on 01-21-2024 Monocytes (Bld) [#/Vol] 1.4 10*3/uL High 0.0-0.8 [facility] Comment on above: Performed By: #### P TT, PT #### [address] Automated eosinophil %Ordere d By: Nas Pruett on 01-21-2024 Eosinophils/100 WBC (Bld) 3.6 % Normal . [facility] Comment on above: Performed By: #### P TT, PT #### [address] Automated eosinophil countOr dered By: Nas Pruett on 01-21-2024 Eosinophils (Bld) [#/Vol] 0.3 10*3/uL Normal 0.0-0.45 [facility] Comment on above: Performed By: #### P TT, PT #### [facility] [address] Automated monocyte %Ordered By: Nas Pruett on 01-21-2024 Monocytes/100 WBC (Bld) 16.0 % Normal . [facility] Comment on above: Performed By: #### P TT, PT #### [facility] [address] Automated neutrophil %Ordere d By: Nas Pruett on 01-21-2024 Neutrophils/100 WBC (Bld) 64.3 % Normal . [facility] Comment on above: Performed By: #### P TT, PT #### [address] Basic Metabolic Panelon 12-25 Creatinine Clr Calc Pharmacy 46.56 Normal [facility] Comment on above: Result Comment: PERF ORMED BY: [place] [address] PATHOLOGIST PRODUCTION PROOFREADER OREN OWEN M.D. Performed By: #### P TT, PT #### [address] GFR/1.73 sq M.predicted MDRD (S/P/Bld) [Vol rate/Area] 43.613 mL/min/{1.73_m2} Normal [facility] Comment on above: Performed By: #### P TT, PT #### [place] [address] [place] Calcium [Mass/volume] in Ser um or PlasmaOrdered By: Nas Pruett on 01-21-2024 Calcium [Mass/Vol] 8.5 mg/dL Low 8.6-10.3 [facility] Comment on above: Performed By: #### P TT, PT #### [place] [address] [place] Carbon dioxide, total [Moles /volume] in Serum or PlasmaOrdered By: Nas Pruett on 01-21-2024 CO2 [Moles/Vol] 20.1 mmol/L Low 21.0-31.0 [facility] Comment on above: Performed By: #### P TT, PT #### [address] Chloride [Moles/volume] in S marium or PlasmaOrdered By: Nas Pruett on 01-21-2024 Chloride [Moles/Vol] 107 mmol/L Normal 98-107 [facility] Comment on above: Performed By: #### P TT, PT #### [address] Complete Blood Count Auto Di ffon 01-21-2024 Mean Corpuscular HGB Conc 32.9 g/dL Normal 32.5-35.6 [facility] Comment on above: Performed By: #### P TT, PT #### [address] NRBC% 0.1 /100{WBC} Normal 0-0.5 [facility] Comment on above: Performed By: #### P TT, PT #### [address] Creatinine [Mass/volume] in Serum or PlasmaOrdered By: Nas Pruett on 01-21-2024 Creatinine [Mass/Vol] 1.59 mg/dL High 0.70-1.30 [facility] Comment on above: Performed By: #### P TT, PT #### [address] Erythrocyte distribution wid th [Ratio] by Automated countOrdered By: Nas Pruett on 01-21-2024 Erythrocyte distribution width (RBC) [Ratio] 15.6 % High 12.0-14.8 [facility] Comment on above: Performed By: #### P TT, PT #### [address] Erythrocytes [#/volume] in B lood by Automated countOrdered By: Nas Pruett on 01-21-2024 RBC (Bld) [#/Vol] 4.33 10*6/uL Normal 3.90-5.60 [facility] Comment on above: Performed By: #### P TT, PT #### [address] Glucose [Mass/volume] in Ser um or PlasmaOrdered By: Nas Pruett on 01-21-2024 Glucose [Mass/Vol] 121 mg/dL High 70-100 [facility] Comment on above: ADA recommended refe rence rangeRandom Glucose Reference Range is dependent on time and content of last meal. Glucose of more than 200 mg/dL in a nonstressed, ambulatory subject supports the diagnosis of Diabetes Mellitus. Result Comment: [place] om Glucose Reference Range is dependent on time and content of last meal. Glucose of more than 200 mg/dL in a nonstressed, ambulatory subject supports the diagnosis of Diabetes Mellitus. ADA recommended reference range Performed By: #### P TT, PT #### [address] Hematocrit [Volume Fraction] of Blood by Automated countOrdered By: Nas Pruett on 01-21-2024 Hematocrit (Bld) [Volume fraction] 37.1 % Low 38.8-50.0 [facility] Comment on above: Performed By: #### P TT, PT #### [address] Hemoglobin [Mass/volume] in BloodOrdered By: Nas Pruett on 01-21-2024 Hemoglobin (Bld) [Mass/Vol] 12.2 g/dL Low 13.0-17.0 [facility] Comment on above: Performed By: #### P TT, PT #### [address] Leukocytes [#/volume] correc pihl for nucleated erythrocytes in Blood by Automated counOrdered By: Nas Pruett on 01-21-2024 WBC corrected for nucl RBC Auto (Bld) [#/Vol] 8.8 10*3/uL 4.1-10.5 [facility] Leukocytes [#/volume] in Blo od by Automated countOrdered By: Nas Pruett on 01-21-2024 WBC (Bld) [#/Vol] 8.8 10*3/uL Normal 4.1-10.5 [facility] Comment on above: Performed By: #### P TT, PT #### [address] Lymphocytes [#/volume] in Bl ood by Automated countOrdered By: Nas Pruett on 01-21-2024 Lymphocytes (Bld) [#/Vol] 1.4 10*3/uL Normal 1.00-4.8 [facility] Comment on above: Performed By: #### P TT, PT #### [address] Lymphocytes/100 leukocytes i n Blood by Automated countOrdered By: Nas Pruett on 01-21-2024 Lymphocytes/100 WBC (Bld) 15.6 % Normal . [facility] Comment on above: Performed By: #### P TT, PT #### [address] MCH [Entitic mass] by Automa phil countOrdered By: Nas Pruett on 01-21-2024 MCH (RBC) [Entitic mass] 28.1 pg Normal 27.5-35.2 [facility] Comment on above: Performed By: #### P TT, PT #### [address] MCHC Auto (RBC) [Mass/Vol]Or dered By: Nas Pruett on 01-21-2024 MCHC (RBC) [Mass/Vol] 32.9 g/dL 32.5-35.6 [facility] MCV [Entitic volume] by Auto mated countOrdered By: Nas Pruett on 01-21-2024 MCV (RBC) [Entitic vol] 85.6 fL Normal 83.5-101 [facility] Comment on above: Performed By: #### P TT, PT #### [place] [address] [place] Neutrophils [#/volume] in Bl ood by Automated countOrdered By: Nas Pruett on 01-21-2024 Neutrophils (Bld) [#/Vol] 5.7 10*3/uL Normal 1.8-7.7 [facility] Comment on above: Performed By: #### P TT, PT #### [address] No Panel InformationOrdered By: Nas Pruett on 01-21-2024 Estimated GFR (CKD-EPI) 43.613 mL/Min [facility] Creatinine Clearance (Chem 46.56 [facility] Nucleated erythrocytes [Pres ence] in Blood by Automated countOrdered By: Nas Pruett on 01-21-2024 Nucleated RBC Auto Ql (Bld) 0.1 /100{WBC} 0-0.5 [facility] Platelet mean volume [Entiti c volume] in Blood by Automated countOrdered By: Nas Pruett on 01-21-2024 Platelet mean volume (Bld) [Entitic vol] 8.4 fL Normal 6.6-10.1 [facility] Comment on above: Performed By: #### P TT, PT #### [facility] [address] [place] [address] Platelets [#/volume] in Bloo d by Automated countOrdered By: Nas Pruett on 01-21-2024 Platelets (Bld) [#/Vol] 221 10*3/uL Normal 150-450 [facility] Comment on above: Performed By: #### P TT, PT #### [facility] [address] [place] [address] Potassium [Moles/volume] in Serum or PlasmaOrdered By: Nas Pruett on 01-21-2024 Potassium [Moles/Vol] 3.9 mmol/L Normal 3.5-5.1 [facility] Comment on above: Performed By: #### P TT, PT #### [address] Serum or plasma anion gap de terminationOrdered By: Nas Pruett on 01-21-2024 Anion gap [Moles/Vol] 13.8 mmol/L Normal 6.0-15.0 [facility] Comment on above: Performed By: #### P TT, PT #### [facility] [address] [place] [address] [place] Sodium [Moles/volume] in Ser um or PlasmaOrdered By: Nas Pruett on 01-21-2024 Sodium [Moles/Vol] 137 mmol/L Normal 136-145 [facility] Comment on above: Performed By: #### P TT, PT #### [facility] [address] [place] [address] [place] Urea nitrogen [Mass/volume] in Serum or PlasmaOrdered By: Nas Pruett on 01-21-2024 Urea nitrogen [Mass/Vol] 35 mg/dL High 7-25 [facility] Comment on above: Performed By: #### P TT, PT #### [facility] [address] Basic Metabolic Panelon 12-25 Anion gap [Moles/Vol] 12.0 mmol/L Normal 6.0-15.0 [facility] Comment on above: Performed By: #### A DDONUAPLUS, CUU #### [facility] [address] [place] [address] [place] Calcium [Mass/Vol] 8.4 mg/dL Low 8.6-10.3 [facility] Comment on above: Performed By: #### A DDONUAPLUS, CUU #### [facility] [address] [place] [address] [place] Chloride [Moles/Vol] 107 mmol/L Normal 98-107 [facility] Comment on above: Performed By: #### A DDONUAPLUS, CUU #### [facility] [address] [place] [id number] [place] CO2 [Moles/Vol] 19.5 mmol/L Low 21.0-31.0 [facility] Comment on above: Performed By: #### A DDONUAPLUS, CUU #### [facility] [address] [place] [address] [place] Creatinine [Mass/Vol] 1.50 mg/dL High 0.70-1.30 [facility] Comment on above: Performed By: #### A DDMOEUAPLUS, CUU #### [place] [address] [place] Creatinine Clr Calc Pharmacy 49.40 Normal [facility] Comment on above: Result Comment: PERF ORMED BY: [place] [address] PATHOLOGIST PRODUCTION PROOFREADER OREN OWEN M.D. Performed By: #### A DDMOEUAPLUS, CUU #### [place] [address] [place] GFR/1.73 sq M.predicted MDRD (S/P/Bld) [Vol rate/Area] 46.772 mL/min/{1.73_m2} Normal [facility] Comment on above: Performed By: #### A DDMOEUAPLUS, CUU #### [place] [address] [place] Glucose [Mass/Vol] 136 mg/dL High 70-100 [facility] Comment on above: Result Comment: [place] Glucose Reference Range is dependent on time and content of last meal. Glucose of more than 200 mg/dL in a nonstressed, ambulatory subject supports the diagnosis of Diabetes Mellitus. ADA recommended reference range Performed By: #### A NAVUAPLUS, CUU #### [place] [address] [place] Potassium [Moles/Vol] 3.5 mmol/L Normal 3.5-5.1 [facility] Comment on above: Performed By: #### A DDMOEUAPLUS, CUU #### [place] [address] [place] Sodium [Moles/Vol] 135 mmol/L Low 136-145 [facility] Comment on above: Performed By: #### A DDMOEUAPLUS, CUU #### [place] [address] [place] Urea nitrogen [Mass/Vol] 32 mg/dL High 7-25 [facility] Comment on above: Performed By: #### A DDMOEUAPLUS, CUU #### [place] [address] Complete Blood Count Auto Di ffon 01-20-2024 Basophils (Bld) [#/Vol] 0.0 10*3/uL Normal 0.0-0.2 [facility] Comment on above: Result Comment: PERF ORMED BY: [place] [address] PATHOLOGIST PRODUCTION PROOFREADER OREN OWEN M.D. Performed By: #### A ИРИНА, CUU #### [address] Basophils/100 WBC (Bld) 0.3 % Normal . T jonatan [facility] Comment on above: Performed By: #### A ИРИНА, CUU #### [address] Eosinophils (Bld) [#/Vol] 0.2 10*3/uL Normal 0.0-0.45 [facility] Comment on above: Performed By: #### A ИРИНА, CUU #### [address] Eosinophils/100 WBC (Bld) 1.7 % Normal . [facility] Comment on above: Performed By: #### A ИРИНА, CUU #### [address] Erythrocyte distribution width (RBC) [Ratio] 15.4 % High 12.0-14.8 [facility] Comment on above: Performed By: #### A ИРИНА, CUU #### [address] Hematocrit (Bld) [Volume fraction] 37.6 % Low 38.8-50.0 [facility] Comment on above: Performed By: #### A ИРИНА, CUU #### [address] Hemoglobin (Bld) [Mass/Vol] 12.5 g/dL Low 13.0-17.0 [facility] Comment on above: Performed By: #### A ИРИНА, CUU #### [address] Lymphocytes (Bld) [#/Vol] 1.1 10*3/uL Normal 1.00-4.8 [facility] Comment on above: Performed By: #### A DDONUAPLUS, CUU #### [address] Lymphocytes/100 WBC (Bld) 11.8 % Normal . [facility] Comment on above: Performed By: #### A DDONUAPLUS, CUU #### [address] MCH (RBC) [Entitic mass] 28.5 pg Normal 27.5-35.2 [facility] Comment on above: Performed By: #### A DDONUAPLUS, CUU #### [address] MCV (RBC) [Entitic vol] 85.9 fL Normal 83.5-101 T [facility] Comment on above: Performed By: #### A DDONUAPLUS, CUU #### [address] Mean Corpuscular HGB Conc 33.2 g/dL Normal 32.5-35.6 [facility] Comment on above: Performed By: #### A DDONUAPLUS, CUU #### [address] Monocytes (Bld) [#/Vol] 1.4 10*3/uL High 0.0-0.8 [facility] Comment on above: Performed By: #### A DDONUAPLUS, CUU #### [address] Monocytes/100 WBC (Bld) 14.3 % Normal . T [facility] Comment on above: Performed By: #### A DDONUAPLUS, CUU #### [address] Neutrophils (Bld) [#/Vol] 6.8 10*3/uL Normal 1.8-7.7 [facility] Comment on above: Performed By: #### A ИРИНА, CUU #### [address] Neutrophils/100 WBC (Bld) 71.9 % Normal . [facility] Comment on above: Performed By: #### A ИРИНА, CUU #### [address] NRBC% 0.0 /100{WBC} Normal 0-0.5 [facility] Comment on above: Performed By: #### A ИРИНА, CUU #### [address] Platelet mean volume (Bld) [Entitic vol] 8.3 fL Normal 6.6-10.1 [facility] Comment on above: Performed By: #### A ИРИНА, CUU #### [address] Platelets (Bld) [#/Vol] 202 10*3/uL Normal 150-450 [facility] Comment on above: Performed By: #### A ИРИНА CUU #### [address] RBC (Bld) [#/Vol] 4.38 10*6/uL Normal 3.90-5.60 [facility] Comment on above: Performed By: #### A ИРИНА, CUU #### [address] WBC (Bld) [#/Vol] 9.5 10*3/uL Normal 4.1-10.5 [facility] Comment on above: Performed By: #### A ИРИНА, CUU #### [address] Magnesium [Mass/volume] in S marium or PlasmaOrdered By: Isaac Edwards on 01-20-2024 Magnesium [Mass/Vol] 2.1 mg/dL Normal 1.9-2.7 [facility] Comment on above: Result Comment: PERF ORMED BY: [place] [address] PATHOLOGIST PRODUCTION PROOFREADER OREN OWEN M.D. Performed By: #### A JHONNY GIFFORD #### [address] Basic Metabolic Panelon 12-25 Anion gap [Moles/Vol] 11.7 mmol/L Normal 6.0-15.0 e [facility] Comment on above: Performed By: #### P ATH TO [facility] #### [address] Calcium [Mass/Vol] 8.5 mg/dL Low 8.6-10.3 [facility] Comment on above: Performed By: #### P ATH TO [facility] #### [place] [address] [place] Chloride [Moles/Vol] 106 mmol/L Normal 98-107 [facility] Comment on above: Performed By: #### P ATH TO [facility] #### [address] CO2 [Moles/Vol] 19.9 mmol/L Low 21.0-31.0 [facility] Comment on above: Performed By: #### P ATH TO [facility] #### [place] [address] [place] Creatinine [Mass/Vol] 1.62 mg/dL High 0.70-1.30 [facility] Comment on above: Performed By: #### P ATH TO [facility] #### [place] [address] [place] Creatinine Clr Calc Pharmacy 42.28 Normal [facility] Comment on above: Result Comment: PERF ORMED BY: [place] [address] PATHOLOGIST PRODUCTION PROOFREADER OREN OWEN M.D. Performed By: #### P ATH TO [facility] #### [place] [address] [place] GFR/1.73 sq M.predicted MDRD (S/P/Bld) [Vol rate/Area] 42.646 mL/min/{1.73_m2} Normal [facility] Comment on above: Performed By: #### P ATH TO [facility] #### [place] [address] [place] Glucose [Mass/Vol] 145 mg/dL High 70-100 [facility] Comment on above: Result Comment: [place] Glucose Reference Range is dependent on time and content of last meal. Glucose of more than 200 mg/dL in a nonstressed, ambulatory subject supports the diagnosis of Diabetes Mellitus. ADA recommended reference range Performed By: #### P ATH TO [facility] #### [address] Potassium [Moles/Vol] 3.6 mmol/L Normal 3.5-5.1 [facility] Comment on above: Performed By: #### P ATH TO [facility] #### [place] [address] [place] Sodium [Moles/Vol] 134 mmol/L Low 136-145 [facility] Comment on above: Performed By: #### P ATH TO [facility] #### [place] [address] [place] Urea nitrogen [Mass/Vol] 32 mg/dL High 7-25 [facility] Comment on above: Performed By: #### P ATH TO [facility] #### [address] Complete Blood Count Auto Di ffon 01-19-2024 Basophils (Bld) [#/Vol] 0.0 10*3/uL Normal 0.0-0.2 [facility] Comment on above: Result Comment: PERF ORMED BY: [place] [address] PATHOLOGIST PRODUCTION PROOFREADER OREN OWEN M.D. Performed By: #### A JHONNY GIFFORD #### [address] [place] [address] [place] Basophils/100 WBC (Bld) 0.4 % Normal . T jonatan [facility] Comment on above: Performed By: #### A ИРИНА, CUU #### [address] Eosinophils (Bld) [#/Vol] 0.0 10*3/uL Normal 0.0-0.45 [facility] Comment on above: Performed By: #### A ИРИНА, CUU #### [address] Eosinophils/100 WBC (Bld) 0.4 % Normal . [facility] Comment on above: Performed By: #### A ИРИНА, CUU #### [address] Erythrocyte distribution width (RBC) [Ratio] 15.6 % High 12.0-14.8 [facility] Comment on above: Performed By: #### A ИРИНА, CUU #### [address] Hematocrit (Bld) [Volume fraction] 37.1 % Low 38.8-50.0 [facility] Comment on above: Performed By: #### A ИРИНА, CUU #### [address] Hemoglobin (Bld) [Mass/Vol] 12.3 g/dL Low 13.0-17.0 [facility] Comment on above: Performed By: #### A DDONUAPLUS, CUU #### [address] Lymphocytes (Bld) [#/Vol] 1.0 10*3/uL Normal 1.00-4.8 [facility] Comment on above: Performed By: #### A DDONUAPLUS, CUU #### [address] Lymphocytes/100 WBC (Bld) 8.8 % Normal . [facility] Comment on above: Performed By: #### A DDMOEUAPLUS, CUU #### [address] MCH (RBC) [Entitic mass] 28.6 pg Normal 27.5-35.2 [facility] Comment on above: Performed By: #### A DDONUAPLUS, CUU #### [address] MCV (RBC) [Entitic vol] 86.5 fL Normal 83.5-101 T [facility] Comment on above: Performed By: #### A DDONUAPLUS, CUU #### [address] Mean Corpuscular HGB Conc 33.0 g/dL Normal 32.5-35.6 [facility] Comment on above: Performed By: #### A DDONUAPLUS, CUU #### [address] Monocytes (Bld) [#/Vol] 1.3 10*3/uL High 0.0-0.8 [facility] Comment on above: Performed By: #### A DDONUAPLUS, CUU #### [address] Monocytes/100 WBC (Bld) 11.9 % Normal . T [facility] Comment on above: Performed By: #### A DDONUAPLUS, CUU #### [address] Neutrophils (Bld) [#/Vol] 8.6 10*3/uL High 1.8-7.7 [facility] Comment on above: Performed By: #### A DDONUAPLUS, CUU #### [address] Neutrophils/100 WBC (Bld) 78.5 % Normal . [facility] Comment on above: Performed By: #### A DDONUAPLUS, CUU #### [address] NRBC% 0.1 /100{WBC} Normal 0-0.5 [facility] Comment on above: Performed By: #### A ИРИНА CUU #### [address] Platelet mean volume (Bld) [Entitic vol] 8.9 fL Normal 6.6-10.1 [facility] Comment on above: Performed By: #### A ИРИНА, CUU #### [address] Platelets (Bld) [#/Vol] 165 10*3/uL Normal 150-450 [facility] Comment on above: Performed By: #### A ИРИНА CUU #### [address] RBC (Bld) [#/Vol] 4.30 10*6/uL Normal 3.90-5.60 [facility] Comment on above: Performed By: #### A ИРИНА, CUU #### [address] WBC (Bld) [#/Vol] 11.0 10*3/uL High 4.1-10.5 [facility] Comment on above: Performed By: #### A ИРИНА CUU #### [address] ECG 12 lead ECGon 01-19-2024 ECG 12 lead ECG [facility] [place] [address] Electrocardiograph Report Signed Patient: Alex Anderson MR#: [id number] [birth year] : 1945 Acct:[id number] Age/Sex: 78 / M ADM Date: 01/16/24 Loc: Room: [address] [place] [address] Type: ADM IN Attending Dr: Nas Pruett [...] or before 16-Jan-2024) Inferolateral injury pattern ACUTE [place] / STEMI Abnormal ECG When compared with ECG of 18-Jan-2024 07:08, No significant change was found Confirmed by Misael Campbell ([id number]) on 01/20/2024 10:18:21 PM Referred By: Electronically Signed By: Misael Campbell Transcribed By: MUS Signed By Misael Campbell MD 01/20/24 5638 Normal [facility] Basic Metabolic Panelon 12-25 Anion gap [Moles/Vol] 11.5 mmol/L Normal 6.0-15.0 Th e [facility] Comment on above: Performed By: #### C BC, BMP #### [facility] [address] Calcium [Mass/Vol] 8.7 mg/dL Normal 8.6-10.3 [facility] Comment on above: Performed By: #### C BC, BMP #### [facility] [address] [place] [address] [place] Chloride [Moles/Vol] 107 mmol/L Normal 98-107 [facility] Comment on above: Performed By: #### C BC, BMP #### [facility] [address] CO2 [Moles/Vol] 21.2 mmol/L Normal 21.0-31.0 [facility] Comment on above: Performed By: #### C BC, BMP #### [facility] [address] [place] [id number] [place] Creatinine [Mass/Vol] 1.59 mg/dL High 0.70-1.30 [facility] Comment on above: Performed By: #### C BC, BMP #### [facility] [address] [place] [id number] [place] Creatinine Clr Calc Pharmacy 46.65 Normal [facility] Comment on above: Result Comment: PERF ORMED BY: [place] [address] PATHOLOGIST PRODUCTION PROOFREADER OREN OWEN M.D. Performed By: #### C BC, BMP #### [place] [address] [place] GFR/1.73 sq M.predicted MDRD (S/P/Bld) [Vol rate/Area] 43.613 mL/min/{1.73_m2} Normal [facility] Comment on above: Performed By: #### C BC, BMP #### [address] Glucose [Mass/Vol] 125 mg/dL High 70-100 [facility] Comment on above: Result Comment: [facility] Glucose Reference Range is dependent on time and content of last meal. Glucose of more than 200 mg/dL in a nonstressed, ambulatory subject supports the diagnosis of Diabetes Mellitus. ADA recommended reference range Performed By: #### C ANA, BMP #### [address] Potassium [Moles/Vol] 3.7 mmol/L Normal 3.5-5.1 [facility] Comment on above: Performed By: #### C ANA, BMP #### [address] Sodium [Moles/Vol] 136 mmol/L Normal 136-145 [facility] Comment on above: Performed By: #### C ANA, BMP #### [address] Urea nitrogen [Mass/Vol] 29 mg/dL High 7-25 [facility] Comment on above: Performed By: #### C ANA, BMP #### [address] Complete Blood Count Auto Di ffon 01-18-2024 Basophils (Bld) [#/Vol] 0.0 10*3/uL Normal 0.0-0.2 [facility] Comment on above: Result Comment: PERF ORMED BY: [place] [address] PATHOLOGIST PRODUCTION PROOFREADER OREN OWEN M.D. Performed By: #### C BC, BMP #### [facility] [address] [place] [address] [place] Basophils/100 WBC (Bld) 0.4 % Normal . T jonatan [facility] Comment on above: Performed By: #### C BC, BMP #### [facility] [address] [place] [address] [place] Eosinophils (Bld) [#/Vol] 0.0 10*3/uL Normal 0.0-0.45 [facility] Comment on above: Performed By: #### C BC, BMP #### [facility] [address] [place] [address] [place] Eosinophils/100 WBC (Bld) 0.2 % Normal . [facility] Comment on above: Performed By: #### C BC, BMP #### [facility] [address] Erythrocyte distribution width (RBC) [Ratio] 15.9 % High 12.0-14.8 [facility] Comment on above: Performed By: #### C BC, BMP #### [facility] [address] [place] [address] [place] Hematocrit (Bld) [Volume fraction] 38.2 % Low 38.8-50.0 [facility] Comment on above: Performed By: #### C BC, BMP #### [facility] [address] [place] [address] [place] Hemoglobin (Bld) [Mass/Vol] 12.7 g/dL Low 13.0-17.0 [facility] Comment on above: Performed By: #### C BC, BMP #### [facility] [address] [place] [id number] [place] Lymphocytes (Bld) [#/Vol] 1.4 10*3/uL Normal 1.00-4.8 [facility] Comment on above: Performed By: #### C BC, BMP #### [facility] [address] [place] [id number] [place] Lymphocytes/100 WBC (Bld) 11.5 % Normal . [facility] Comment on above: Performed By: #### C BC, BMP #### [facility] [address] MCH (RBC) [Entitic mass] 28.5 pg Normal 27.5-35.2 [facility] Comment on above: Performed By: #### C BC, BMP #### [facility] [address] MCV (RBC) [Entitic vol] 85.4 fL Normal 83.5-101 T [facility] Comment on above: Performed By: #### C BC, BMP #### [facility] [address] Mean Corpuscular HGB Conc 33.4 g/dL Normal 32.5-35.6 [facility] Comment on above: Performed By: #### C BC, BMP #### [place] [address] [place] Monocytes (Bld) [#/Vol] 1.5 10*3/uL High 0.0-0.8 [facility] Comment on above: Performed By: #### C BC, BMP #### [place] [address] [place] Monocytes/100 WBC (Bld) 12.8 % Normal . T [facility] Comment on above: Performed By: #### C BC, BMP #### [address] Neutrophils (Bld) [#/Vol] 9.1 10*3/uL High 1.8-7.7 [facility] Comment on above: Performed By: #### C BC, BMP #### [facility] [address] [place] [address] [place] Neutrophils/100 WBC (Bld) 75.1 % Normal . [facility] Comment on above: Performed By: #### C BC, BMP #### [address] NRBC% 0.0 /100{WBC} Normal 0-0.5 [facility] Comment on above: Performed By: #### C BC, BMP #### [facility] [address] Platelet mean volume (Bld) [Entitic vol] 9.3 fL Normal 6.6-10.1 [facility] Comment on above: Performed By: #### C BC, BMP #### [facility] [address] [place] [id number] [place] Platelets (Bld) [#/Vol] 131 10*3/uL Low 150-450 [facility] Comment on above: Performed By: #### C ANA, BMP #### [facility] [address] [place] [address] [place] RBC (Bld) [#/Vol] 4.47 10*6/uL Normal 3.90-5.60 [facility] Comment on above: Performed By: #### C BC, BMP #### [facility] [address] [place] [id number] [facility] WBC (Bld) [#/Vol] 12.1 10*3/uL High 4.1-10.5 [facility] Comment on above: Performed By: #### C ANA, BMP #### [facility] [address] ECG 12 lead ECGon 01-18-2024 ECG 12 lead ECG [facility] Main [place] [address] [place] [address] Electrocardiograph Report Signed Patient: Alex Anderson MR#: [id number] [birth year] : 1945 Acct:[id number] Age/Sex: 78 / M ADM Date: 01/16/24 Loc: Room: [address] [place] [address] Type: ADM IN Attending Dr: Nas Pruett DO Ordering Provider: aNs Pruett DO Date of Service: 01/18/24 ECG/ECG [...] Castro MD 0 01/18/24 1102 Normal [facility] Basic Metabolic Panelon 12-25 Anion gap [Moles/Vol] 12.3 mmol/L Normal 6.0-15.0 Th e [facility] Comment on above: Performed By: #### A ИРИНА CUU #### [address] Calcium [Mass/Vol] 8.9 mg/dL Normal 8.6-10.3 [facility] Comment on above: Performed By: #### A ИРИНА CUU #### [address] Chloride [Moles/Vol] 105 mmol/L Normal 98-107 [facility] Comment on above: Performed By: #### A ИРИНА CUU #### [address] CO2 [Moles/Vol] 22.2 mmol/L Normal 21.0-31.0 [facility] Comment on above: Performed By: #### A ИРИНА CUU #### [address] Creatinine [Mass/Vol] 1.70 mg/dL High 0.70-1.30 [facility] Comment on above: Performed By: #### A ИРИНА CUU #### [place] [address] [place] Creatinine Clr Calc Pharmacy 44.35 Normal [facility] Comment on above: Performed By: #### A ИРИНА CUU #### [place] [address] [place] GFR/1.73 sq M.predicted MDRD (S/P/Bld) [Vol rate/Area] 40.249 mL/min/{1.73_m2} Normal [facility] Comment on above: Performed By: #### A ИРИНА, CUU #### [address] Glucose [Mass/Vol] 115 mg/dL High 70-100 [facility] Comment on above: Result Comment: [place] om Glucose Reference Range is dependent on time and content of last meal. Glucose of more than 200 mg/dL in a nonstressed, ambulatory subject supports the diagnosis of Diabetes Mellitus. ADA recommended reference range Performed By: #### A NAVUAJONATHAN, CUU #### [address] Potassium [Moles/Vol] 4.5 mmol/L Normal 3.5-5.1 [facility] Comment on above: Performed By: #### A ИРИНА, CUU #### [address] Sodium [Moles/Vol] 135 mmol/L Low 136-145 [facility] Comment on above: Performed By: #### A ИРИНА, CUU #### [address] Urea nitrogen [Mass/Vol] 26 mg/dL High 7-25 [facility] Comment on above: Performed By: #### A NAVUAJONATHAN, CUU #### [address] Capillary blood glucose elan urement by glucometer (mass/volume)Ordered By: Nas Pruett on 01-17-2024 Glucose [Mass/Vol] 126 mg/dL Normal [facility] Comment on above: Random Glucose Refer ence Range is dependent on time and content of last meal. Glucose of more than 200 mg/dL in a nonstressed, ambulatory subject supports the diagnosis of Diabetes Mellitus. Result Comment: [place] om Glucose Reference Range is dependent on time and content of last meal. Glucose of more than 200 mg/dL in a nonstressed, ambulatory subject supports the diagnosis of Diabetes Mellitus. PERFORMED BY: [place] [address] PATHOLOGIST PRODUCTION PROOFREADER OREN OWEN M.D. Performed By: #### A MAISHA GIFFORDU #### [facility] [address] [place] [address] [place] Cholesterol [Mass/volume] in Serum or PlasmaOrdered By: Nas Pruett on 01-17-2024 Cholesterol [Mass/Vol] 74 mg/dL Low 140-200 [facility] Comment on above: Chol less than 200 m g/dl low riskChol 201-239 mg/dl borderline riskChol 240 mg/dl and greater high risk Result Comment: Chol less than 200 mg/dl low risk Chol 201-239 mg/dl borderline risk Chol 240 mg/dl and greater high risk Performed By: #### A ИРИНА CUU #### [facility] [address] [place] [address] [place] Cholesterol in LDL Calc [Mas s/Vol]Ordered By: Nas Pruett on 01-17-2024 Cholesterol in LDL [Mass/Vol] 28 mg/dL 0-100 [facility] Comment on above: LDL ATP III CLASSIFI CATIONLDL less than 100 mg/dL OptimalLDL 100-129 mg/dL Near or above optimalLDL 130-159 mg/dL Borderline highLDL 160-189 mg/dL HighLDL greater than 189 mg/dL Very high Cholesterol in VLDL Calc [Ma ss/Vol]Ordered By: Nas Pruett on 01-17-2024 Cholesterol in VLDL [Mass/Vol] 13 mg/dL [facility] Dipstick and Microscopicon 0 01-17-2024 Appearance (U) Cloudy Critically abnormal Clear [facility] Comment on above: Order Comment: Name Collection Type:: Villarreal Catheter Performed By: #### A ИРИНА CUU #### [facility] [address] [place] [address] [place] Bacteria,Urine 2+ High None Seen [facility] Comment on above: Order Comment: Name Collection Type:: Villarreal Catheter Performed By: #### A ИРИНА CUU #### [place] [address] [place] Bilirubin,Urine Negative Normal Negative [facility] Comment on above: Order Comment: Name Collection Type:: Villarreal Catheter Performed By: #### A DDONUAPLUS, CUU #### [address] Color (U) Light-Yellow Normal Yellow [facility] Comment on above: Order Comment: Name Collection Type:: Villarreal Catheter Performed By: #### A DDONUAPLUS, CUU #### [address] Glucose Ql (U) Normal Normal Normal [facility] Comment on above: Order Comment: Name Collection Type:: Villarreal Catheter Performed By: #### A DDONUAPLUS, CUU #### [address] Hyaline Casts,Urine None Normal 0-8 [facility] Comment on above: Order Comment: Name Collection Type:: Villarreal Catheter Performed By: #### A DDONUAPLUS, CUU #### [address] Ketones Ql (U) Negative Normal Negative [facility] Comment on above: Order Comment: Name Collection Type:: Villarreal Catheter Performed By: #### A DDONUAPLUS, CUU #### [address] Leukocyte esterase Test strip Ql (U) 3+ High Negative [facility] Comment on above: Order Comment: Name Collection Type:: Villarreal Catheter Performed By: #### A DDONUAPLUS, CUU #### [place] [address] [place] Mucus,Urine Rare Normal [facility] Comment on above: Order Comment: Name Collection Type:: Villarreal Catheter Result Comment: PERF ORMED BY: [place] [address] PATHOLOGIST PRODUCTION PROOFREADER OREN OWEN M.D. Performed By: #### A DDONUAPLUS, CUU #### [place] [address] [place] Nitrite,Urine Negative Normal Negative [facility] Comment on above: Order Comment: Name Collection Type:: Villarreal Catheter Performed By: #### A DDONUAPLUS, CUU #### [address] Occult Blood,Urine Trace High Negative [facility] Comment on above: Order Comment: Name Collection Type:: Villarreal Catheter Result Comment: PERF ORMED BY: [place] [address] PATHOLOGIST PRODUCTION PROOFREADER OREN OWEN M.D. Performed By: #### A DDONUAPLUS, CUU #### [address] pH (U) 6.0 [pH] Normal 5.0-9.0 [facility] Comment on above: Order Comment: Name Collection Type:: Villarreal Catheter Performed By: #### A DDONUAPLUS, CUU #### [address] Protein,Urine Trace High Negative [facility] Comment on above: Order Comment: Name Collection Type:: Villarreal Catheter Performed By: #### A DDONUAPLUS, CUU #### [address] RBC,Urine 3-4 Normal 0-4 [facility] Comment on above: Order Comment: Name Collection Type:: Villarreal Catheter Performed By: #### A DDONUAPLUS, CUU #### [place] [address] [place] Specificy Kend[place],Urine 1.018 Normal 1.00 1-1.03 0 [facility] Comment on above: Order Comment: Name Collection Type:: Villarreal Catheter Performed By: #### A DDONUAPLUS, CUU #### [address] Squamous Epithelial Cell,Urine 1-2 Normal 0-2 [facility] Comment on above: Order Comment: Name Collection Type:: Villarreal Catheter Performed By: #### A DDONUAPLUS, CUU #### [address] [place] [address] [place] Urobilinogen,Urine Normal Normal Normal [facility] Comment on above: Order Comment: Name Collection Type:: Villarreal Catheter Performed By: #### A DDONUAPLUS, CUU #### [facility] [address] [place] [id number] [place] WBC,Urine 10-19 High 0-4 [facility] Comment on above: Order Comment: Name Collection Type:: Villarreal Catheter Performed By: #### A DDONUAPLUS, CUU #### [facility] [address] [place] [id number] [facility] ECG 12 lead ECGon 01-17-2024 ECG 12 lead ECG [facility] Main [place] [address] [place] [address] Electrocardiograph Report Signed Patient: Alex Anderson MR#: [id number] [birth year] : 1945 Acct:[id number] Age/Sex: 78 / M ADM Date: 01/16/24 Loc: Room: [address] [place] [address] Type: ADM IN Attending Dr: Nas Pruett [...] or before 16-Jan-2024) Inferior injury pattern ACUTE [place] / STEMI Abnormal ECG When compared with ECG of 16-Jan-2024 19:53, (Unconfirmed) Serial changes of evolving Septal infarct present Confirmed by ANA CASTRO MD ([id number]) on 01/17/2024 9:52:42 AM Referred By: Electronically Signed By: ANA CASTRO MD Transcribed By: MUS Signed By Ana Castro MD 0 01/17/24 0952 Normal [facility] E[facility] echo transthoracicon [facility] echo transthoracic [facility] Main [place] [address] [place] [address] Echocardiogram Signed Patient: Alex Anderson MR#: [id number] [birth year] : 1945 Acct:[id number] Age/Sex: 78 / M ADM Date: 01/16/24 Loc: Room: [address] [place] [address] Type: ADM IN Attending Dr: Nas Pruett DO Ordering Provider: Nas Pruett DO Date of Service: 01/17/24 [facility] echo transthoracic: Ant STEMI Copies to: MD [...] Ana Castro MD 01/17/24 1150 Normal [facility] Glucose Poct Glucometerson 0 01-17-2024 Glucose [Mass/Vol] 115 mg/dL Normal [facility] Comment on above: Result Comment: [facility] Glucose Reference Range is dependent on time and content of last meal. Glucose of more than 200 mg/dL in a nonstressed, ambulatory subject supports the diagnosis of Diabetes Mellitus. PERFORMED BY: [address] [address] PATHOLOGIST PRODUCTION PROOFREADER OREN OWEN M.D. Performed By: #### P TT, PT #### [address] Glucose [Mass/Vol] 114 mg/dL Normal [facility] Comment on above: Result Comment: [facility] Glucose Reference Range is dependent on time and content of last meal. Glucose of more than 200 mg/dL in a nonstressed, ambulatory subject supports the diagnosis of Diabetes Mellitus. PERFORMED BY: [place] [address] PATHOLOGIST PRODUCTION PROOFREADER OREN OWEN M.D. Performed By: #### A DDONUAPLUS, CUU #### [address] Glucose [Mass/Vol] 125 mg/dL Normal [facility] Comment on above: Result Comment: [facility] Glucose Reference Range is dependent on time and content of last meal. Glucose of more than 200 mg/dL in a nonstressed, ambulatory subject supports the diagnosis of Diabetes Mellitus. PERFORMED BY: [place] [address] PATHOLOGIST PRODUCTION PROOFREADER OREN OWEN M.D. Performed By: #### P TT, PT #### [address] Lipid Panelon 01-17-2024 LDL Cholesterol,Calculated 28 mg/dL Normal 0-100 [facility] Comment on above: Result Comment: LDL ATP III CLASSIFICATION LDL less than 100 mg/dL Optimal LDL 100-129 mg/dL Near or above optimal LDL 130-159 mg/dL Borderline high LDL 160-189 mg/dL High LDL greater than 189 mg/dL Very high Performed By: #### A DDONUAPLUS, CUU #### [address] Triglyceride w/Reflex 67 mg/dL Normal 0-149 [facility] Comment on above: Result Comment: TRIG ATP III CLASSIFICATION TRIG less than 150 mg/dL Normal TRIG 150-199 mg/dL Borderline high TRIG 200-500 mg/dL High TRIG greater than 500 mg/dL Very high Standard traceable to the Center for Disease Conrtrol and Prevention (CDC) test method. Performed By: #### A DDONUAPLUS, CUU #### [address] VLDL CHOLESTEROL 13 mg/dL Normal [facility] Comment on above: Performed By: #### A DDONUAPLUS, CUU #### [address] Platelet adequacy [Presence] in Blood by Light microscopyOrdered By: Nas Pruett on 01-17-2024 Platelets LM Ql (Bld) Decreased Normal [facility] Platelet morphology finding [Identifier] in BloodOrdered By: Nas Pruett on 01-17-2024 Platelet morphology finding Nom (Bld) Normal Normal [facility] RBC morphologyOrdered By: Nas Pruett on 01-17-2024 RBC morphology finding Nom (Bld) N/A [facility] Scan and CBCon 01-17-2024 Basophils (Bld) [#/Vol] 0.1 10*3/uL Normal 0.0-0.2 [facility] Comment on above: Result Comment: PERF ORMED BY: [place] [address] PATHOLOGIST PRODUCTION PROOFREADER OREN OWEN M.D. Performed By: #### A ИРИНА, CUU #### [address] Basophils/100 WBC (Bld) 0.4 % Normal . T jonatan [facility] Comment on above: Performed By: #### A ИРИНА, CUU #### [place] [address] [place] Eosinophils (Bld) [#/Vol] 0.0 10*3/uL Normal 0.0-0.45 [facility] Comment on above: Performed By: #### A ИРИНА, CUU #### [address] Eosinophils/100 WBC (Bld) 0.0 % Normal . [facility] Comment on above: Performed By: #### A ИРИНА, CUU #### [address] Erythrocyte distribution width (RBC) [Ratio] 15.8 % High 12.0-14.8 [facility] Comment on above: Performed By: #### A ИРИНА, CUU #### [address] Hematocrit (Bld) [Volume fraction] 38.4 % Low 38.8-50.0 [facility] Comment on above: Performed By: #### A ИРИНА, CUU #### [address] Hemoglobin (Bld) [Mass/Vol] 12.7 g/dL Low 13.0-17.0 [facility] Comment on above: Performed By: #### A DDONUAPLUS, CUU #### [address] Lymphocytes (Bld) [#/Vol] 1.2 10*3/uL Normal 1.00-4.8 [facility] Comment on above: Performed By: #### A DDONUAPLUS, CUU #### [address] Lymphocytes/100 WBC (Bld) 6.9 % Normal . [facility] Comment on above: Performed By: #### A DDONUAPLUS, CUU #### [address] MCH (RBC) [Entitic mass] 28.4 pg Normal 27.5-35.2 [facility] Comment on above: Performed By: #### A DDONUAPLUS, CUU #### [address] MCV (RBC) [Entitic vol] 86.1 fL Normal 83.5-101 T [facility] Comment on above: Performed By: #### A DDONUAPLUS, CUU #### [address] Mean Corpuscular HGB Conc 33.0 g/dL Normal 32.5-35.6 [facility] Comment on above: Performed By: #### A DDONUAPLUS, CUU #### [address] Monocytes (Bld) [#/Vol] 2.8 10*3/uL High 0.0-0.8 [facility] Comment on above: Performed By: #### A DDONUAPLUS, CUU #### [address] Monocytes/100 WBC (Bld) 15.6 % Normal . T [facility] Comment on above: Performed By: #### A ИРИНА, CUU #### [address] Neutrophils (Bld) [#/Vol] 13.6 10*3/uL High 1.8-7.7 [facility] Comment on above: Performed By: #### A ИРИНА CUU #### [address] Neutrophils/100 WBC (Bld) 77.1 % Normal . [facility] Comment on above: Performed By: #### A ИРИНА CUU #### [address] NRBC% 0.0 /100{WBC} Normal 0-0.5 [facility] Comment on above: Performed By: #### A ИРИНА CUU #### [address] Platelet Estimate Decreased Normal Normal [facility] Comment on above: Performed By: #### A ИРИНА CUU #### [address] Platelet mean volume (Bld) [Entitic vol] 9.0 fL Normal 6.6-10.1 [facility] Comment on above: Performed By: #### A ИРИНА CUU #### [address] Platelet Morphology Normal Normal Normal [facility] Comment on above: Result Comment: PERF ORMED BY: [place] [address] PATHOLOGIST PRODUCTION PROOFREADER OREN OWEN M.D. Performed By: #### A ИРИНА, CUU #### [address] Platelets (Bld) [#/Vol] 135 10*3/uL Low 150-450 [facility] Comment on above: Performed By: #### A DDONUAPLUS, CUU #### [facility] [address] RBC (Bld) [#/Vol] 4.46 10*6/uL Normal 3.90-5.60 [facility] Comment on above: Performed By: #### A NAVUAPLUS, CUU #### [facility] [address] WBC (Bld) [#/Vol] 17.7 10*3/uL High 4.1-10.5 [facility] Comment on above: Performed By: #### A DORAONUAPLUS, CUU #### [facility] [address] Serum or plasma high density lipoprotein (HDL) cholesterol measurementOrdered By: Nas Pruett on 01-17-2024 Cholesterol in HDL [Mass/Vol] 33 mg/dL Normal 23-92 [facility] Comment on above: HDL CHOL ATP-III CLA SSIFICATION Cardiovascular RiskHDL > or equal to 60 mg/dL LOWHDL < 40 mg/dL HIGH Result Comment: HDL CHOL ATP-III CLASSIFICATION Cardiovascular Risk HDL > or equal to 60 mg/dL LOW HDL < 40 mg/dL HIGH Performed By: #### A NAVUAJONATHAN, CUU #### [address] Serum or plasma total choles terol/high density lipoprotein (HDL) cholesterol mass ratOrdered By: Nas Pruett on 01-17-2024 Cholesterol.total/Sonya sterol in HDL [Mass ratio] 2.2 {ratio} Normal <5.0 [facility] Comment on above: Result Comment: PERF ORMED BY: [place] [address] PATHOLOGIST PRODUCTION PROOFREADER OREN OWEN M.D. Performed By: #### A ИРИНА, CUU #### [address] Triglyceride [Mass/volume] i n Serum or PlasmaOrdered By: Nas Pruett on 01-17-2024 Triglyceride [Mass/Vol] 67 mg/dL 0-149 [facility] Comment on above: TRIG ATP III CLASSIF ICATIONTRIG less than 150 mg/dL NormalTRIG 150-199 mg/dL Borderline highTRIG 200-500 mg/dL High TRIG greater than 500 mg/dL Very highStandard traceable to the Center for Disease Conrtrol and Prevention (CDC) test method. Troponin I High Sensitivityo n 01-17-2024 Troponin I High Sensitivity 66052.6 pg/mL Off scale high 0.0-20.0 [facility] Comment on above: Result Comment: Crit ical Result I_TnIHS_d:57615.6 Called to and read back by: WU MCDANIEL at: 01/17/2024 06:17:54 by:[id number] PERFORMED BY: [place] [address] PATHOLOGIST PRODUCTION PROOFREADER OREN OWEN M.D. Performed By: #### A DDAYSHA, MAISHAU #### [address] Troponin I.cardiac [Mass/vol ume] in Serum or Plasma by Detection limit <= 0.01 ng/Ordered By: Nas Pruett on 01-17-2024 Troponin I.cardiac DL <= 0.01 ng/mL [Mass/Vol] 02863.6 pg/mL High 0.0-20.0 [facility] Comment on above: Critical Result I_Tn IHS_d:10477.6 Called to and read back by: WU MCDANIEL at: 01/17/2024 06:17:54 by:[id number] Urine Cultureon 01-17-2024 Bacteria identified Cx Nom (U) ORGANISM: Enterococcus faecalis (O:ENTFAC) [place] Count >100,000 Aerobic RITESH Charge (PCMIC38) SUSCEPTIBILITY [...] RESISTANT TO ALL B-LACTAM DRUGS. PERFORMED BY: [place] [address] PATHOLOGIST PRODUCTION PROOFREADER OREN OWEN M.D. Normal [facility] Comment on above: Performed By: #### P TT, PT #### [address] Urine culture routineOrdered By: Justina Lara on 01-17-2024 Bacteria identified Cx Nom (U) Enterococcus faecalis Abnormal [facility] XR chest 1V portableon 01-16 XR chest 1V portable [facility] Main [place] [address] [place] [address] XRay Report Signed Patient: Alex Anderson MR#: [id number] [birth year] : 1945 Acct:[id number] Age/Sex: 78 / M ADM Date: 01/16/24 Loc: Room: [address] [place] [address] Type: ADM IN Attending Dr: Nas Pruett [...] Corky Max M.D.01/17/2024 11:34 AM Dictation Location: [place] [address] Transcribed By: [facility] 01/17/24 113 Dictated By: Corky Max II, MD 01/17/24 1132 Signed By: 01/17/24 113 Normal [facility] ECG 12 lead ECGon 01-16-2024 ECG 12 lead ECG [facility] Main [place] [id number] Electrocardiograph Report Signed Patient: Alex Anderson MR#: [id number] [birth year] : 1945 Acct:[id number] Age/Sex: 78 / M ADM Date: 01/16/24 Loc: Room: [address] [place] [address] Type: ADM IN Attending Dr: Nas Pruett [...] Castro MD 0 01/17/24 0952 Normal [facility] ECG 12 lead ECG [facility] Main [place] [id number] Electrocardiograph Report Signed Patient: Alex Anderson MR#: [id number] [birth year] : 1945 Acct:[id number] Age/Sex: 78 / M ADM Date: 01/16/24 Loc: 4C Room: [address] [place] [address] Type: ADM IN Attending Dr: Nas Pruett [...] Castro MD 0 01/17/24 0057 Normal [facility] Glucose Poct Glucometerson 0 01-16-2024 Commemt1 Glu2: Cleaned Meter Normal [facility] Comment on above: Result Comment: PERF ORMED BY: [place] [address] PATHOLOGIST PRODUCTION PROOFREADER OREN OWEN M.D. Performed By: #### A ИРИНА CUU #### [address] Glucose [Mass/Vol] 118 mg/dL Normal [facility] Comment on above: Result Comment: [place] Glucose Reference Range is dependent on time and content of last meal. Glucose of more than 200 mg/dL in a nonstressed, ambulatory subject supports the diagnosis of Diabetes Mellitus. Performed By: #### A ИРИНА CUU #### [facility] [address] Glucose [Mass/Vol] 119 mg/dL Normal [facility] Comment on above: Result Comment: [place] Glucose Reference Range is dependent on time and content of last meal. Glucose of more than 200 mg/dL in a nonstressed, ambulatory subject supports the diagnosis of Diabetes Mellitus. PERFORMED BY: [place] [phone] PATHOLOGIST PRODUCTION PROOFREADER OREN OWEN M.D. Performed By: #### A ИРИНА CUU #### [address] No Panel InformationOrdered By: Nas Pruett on 01-16-2024 Bedside Glucose Comment Glu2: cleaned meter [facility] Troponin I High Sensitivityo n 01-16-2024 Troponin I High Sensitivity 53339.2 pg/mL Off scale high 0.0-20.0 [facility] Comment on above: Result Comment: Crit ical Result I_TnIHS_d:60266.2 Called to and read back by: BRIDGETTE LUIS at: 01/16/2024 20:40:51 by:[id number] PERFORMED BY: [place] [address] PATHOLOGIST PRODUCTION PROOFREADER OREN OWEN M.D. Performed By: #### H S TROP #### [address] Troponin I High Sensitivity 571904.4 pg/mL Off scale high 0.0-20.0 [facility] Comment on above: Result Comment: Crit ical Result I_TnIHS_d:349686.4 Called to and read back by: BROOKE CANDELARIA at: 01/16/2024 18:52:06 by:[email or web address] PERFORMED BY: [place] [phone] PATHOLOGIST PRODUCTION PROOFREADER OREN OWEN M.D. Performed By: #### A MAISHA GIFFORDU #### [address] Troponin I High Sensitivity 274172.2 pg/mL Off scale high 0.0-20.0 [facility] Comment on above: Result Comment: Crit ical Result I_TnIHS_d:834375.2 Called to and read back by: BROOKE CANDELARIA at: 01/16/2024 16:28:58 by:[id number] PERFORMED BY: [place] [address] PATHOLOGIST PRODUCTION PROOFREADER OREN OWEN M.D. Performed By: #### A ИРИНА, CUU #### [address] Troponin I High Sensitivity 24891.4 pg/mL Off scale high 0.0-20.0 [facility] Comment on above: Result Comment: Crit ical Result I_TnIHS_d:39239.4 Called to and read back by: BROOKE CANDELARIA at: 01/16/2024 14:15:37 by:[id number] PERFORMED BY: [place] [address] PATHOLOGIST PRODUCTION PROOFREADER OREN OWEN M.D. Performed By: #### A ИРИНА, CUU #### [address] No Panel InformationOrdered By: Willy Lambert on 01-14-2024 Miscellaneous Pathology Test See comment [facility] Comment on above: See report. Scanned copy available in EMR. Pathology Request for Lab Co rpon 01-14-2024 Pathology Request for Lab [place] Normal [facility] Comment on above: Order Comment: PATHO LOGY GI SPECIMEN Result Comment: See report. Scanned copy available in EMR. PERFORMED BY: [place] [address] PATHOLOGIST PRODUCTION PROOFREADER OREN OWEN M.D. Performed By: #### P ATH TO [facility] #### [facility] [address] [place] [address] Cholesterol [Mass/volume] in Serum or PlasmaOrdered By: Teo Al on 12-26-2023 Cholesterol [Mass/Vol] 91 mg/dL Low 140-200 [facility] Comment on above: Chol less than 200 m g/dl low riskChol 201-239 mg/dl borderline riskChol 240 mg/dl and greater high risk Result Comment: Chol less than 200 mg/dl low risk Chol 201-239 mg/dl borderline risk Chol 240 mg/dl and greater high risk Performed By: #### A NAVUAPLUS, CUU #### [facility] [address] [place] [address] [place] Cholesterol in LDL Calc [Mas s/Vol]Ordered By: Teo Al on 12-26-2023 Cholesterol in LDL [Mass/Vol] 37 mg/dL 0-100 [facility] Comment on above: LDL ATP III CLASSIFI CATIONLDL less than 100 mg/dL OptimalLDL 100-129 mg/dL Near or above optimalLDL 130-159 mg/dL Borderline highLDL 160-189 mg/dL HighLDL greater than 189 mg/dL Very high Cholesterol in VLDL Calc [Ma ss/Vol]Ordered By: Teo Al on 12-26-2023 Cholesterol in VLDL [Mass/Vol] 18 mg/dL [facility] Lipid Panelon 12-26-2023 LDL Cholesterol,Calculated 37 mg/dL Normal 0-100 [facility] Comment on above: Result Comment: LDL ATP III CLASSIFICATION LDL less than 100 mg/dL Optimal LDL 100-129 mg/dL Near or above optimal LDL 130-159 mg/dL Borderline high LDL 160-189 mg/dL High LDL greater than 189 mg/dL Very high Performed By: #### A ИРИНА CUU #### [facility] [address] Triglyceride w/Reflex 94 mg/dL Normal 0-149 [facility] Comment on above: Result Comment: TRIG ATP III CLASSIFICATION TRIG less than 150 mg/dL Normal TRIG 150-199 mg/dL Borderline high TRIG 200-500 mg/dL High TRIG greater than 500 mg/dL Very high Standard traceable to the Center for Disease Conrtrol and Prevention (CDC) test method. Performed By: #### A NAVUAPLUS, CUU #### [facility] [address] VLDL CHOLESTEROL 18 mg/dL Normal [facility] Comment on above: Performed By: #### A ИРИНА, CUU #### [facility] [address] Serum or plasma high density lipoprotein (HDL) cholesterol measurementOrdered By: Teo Al on 12-26-2023 Cholesterol in HDL [Mass/Vol] 35 mg/dL Normal 23-92 [facility] Comment on above: HDL CHOL ATP-III CLA SSIFICATION Cardiovascular RiskHDL > or equal to 60 mg/dL LOWHDL < 40 mg/dL HIGH Result Comment: HDL CHOL ATP-III CLASSIFICATION Cardiovascular Risk HDL > or equal to 60 mg/dL LOW HDL < 40 mg/dL HIGH Performed By: #### A ИРИНА CUU #### [facility] [address] Serum or plasma total choles terol/high density lipoprotein (HDL) cholesterol mass ratOrdered By: Teo Al on 12-26-2023 Cholesterol.total/Sonya sterol in HDL [Mass ratio] 2.6 {ratio} Normal <5.0 [facility] Comment on above: Result Comment: PERF ORMED BY: [address] [place] [address] PATHOLOGIST PRODUCTION PROOFREADER OREN OWEN M.D. Performed By: #### A ИРИНА, CUU #### [facility] [address] Triglyceride [Mass/volume] i n Serum or PlasmaOrdered By: Teo Al on 12-26-2023 Triglyceride [Mass/Vol] 94 mg/dL 0-149 [facility] Comment on above: TRIG ATP III CLASSIF ICATIONTRIG less than 150 mg/dL NormalTRIG 150-199 mg/dL Borderline highTRIG 200-500 mg/dL High TRIG greater than 500 mg/dL Very highStandard traceable to the Center for Disease Conrtrol and Prevention (CDC) test method. Erythrocyte distribution wid th Auto (RBC) [Ratio]on 10-16-2023 Erythrocyte distribution width (RBC) [Ratio] 15.4 % High 11.0-15.0 [facility] Hematocrit Auto (Bld) [Volum e fraction]on 10-16-2023 Hematocrit (Bld) [Volume fraction] 41.3 % Low 42.0-54.0 [facility] Hemoglobin [Mass/volume] in Bloodon 10-16-2023 Hemoglobin (Bld) [Mass/Vol] 13.3 g/dL Low 14.0-18.0 [facility] Laboratory - Chemistry and C hemistry - challengeon 10-16-2023 Magnesium [Mass/Vol] 2.1 mg/dL 1.8-2.4 [facility] Urate [Mass/Vol] 5.9 mg/dL 3.5-7.2 [facility] Leukocytes [#/volume] correc phil for nucleated erythrocytes in Blood by Automated counon 10-16-2023 WBC corrected for nucl RBC Auto (Bld) [#/Vol] 9.3 10 3/uL 4.0-11.0 [facility] MCH Auto (RBC) [Entitic mass ]on 10-16-2023 MCH (RBC) [Entitic mass] 27.8 pg 25.9-34.0 [facility] MCHC Auto (RBC) [Mass/Vol]on 10-16-2023 MCHC (RBC) [Mass/Vol] 32.2 g/dL 29.9-35.2 [facility] MCV Auto (RBC) [Entitic vol] on 10-16-2023 MCV (RBC) [Entitic vol] 86.2 fL 80.0-94.0 [facility] No Panel Informationon 10-15 Phosphorus Level 2.7 mg/dL 2.6-4.7 [facility] Platelet mean volume Auto (B ld) [Entitic vol]on 10-16-2023 Platelet mean volume (Bld) [Entitic vol] 10.1 fL 9.5-13.5 [facility] Platelets Auto (Bld) [#/Vol] on 10-16-2023 Platelets (Bld) [#/Vol] 197 10 3/uL 150-450 [facility] RBC Auto (Bld) [#/Vol]on RBC (Bld) [#/Vol] 4.79 10 6/uL 4.70-6.10 [facility] Laboratory - Chemistry and C hemistry - challengeon 09-30-2023 Bilirubin Ql (U) Negative [facility] Glucose (U) [Mass/Vol] [facility] Ketones Ql (U) Negative [facility] pH (U) 7.0 [pH] [facility] Specific gravity (U) [Rel density] 1.010 [facility] Urobilinogen (U) [Mass/Vol] 0.2 mg/dL [facility] Laboratory - Specimen inform ationon 09-30-2023 Color (U) LtYellow [facility] Laboratory - Urinalysison Leukocyte esterase Test strip Ql (U) Large [facility] Nitrite Ql (U) Positive [facility] Protein Ql (U) 30 [facility] Creatinine (Bld) [Mass/Vol]O rdered By: Margarito Valentine on 08-18-2023 Creatinine [Mass/Vol] 2.4 mg/dL 0.6-1.3 [facility] Comment on above: ER/ESD physician is notified/shown all ISTAT results.Critical values may be confirmed by laboratory testing ifdeemed necessary by ER attending doctor. No Panel InformationOrdered By: Margarito Valentine on 08-18-2023 Bedside Estimated GFR (eGFR) 26.776 [facility] Alanine aminotransferase [En zymatic activity/volume] in Serum or PlasmaOrdered By: Preston Griffin on 04-08-2023 ALT [Catalytic activity/Vol] 17 U/L 7-52 [facility] Albumin [Mass/volume] in Ser um or Plasma by Bromocresol green (BCG) dye binding methoOrdered By: Preston Griffin on 04-08-2023 Albumin BCG dye [Mass/Vol] 4.2 g/dL 3.5-5.7 [facility] Alkaline phosphatase [Enzyma tic activity/volume] in Serum or PlasmaOrdered By: Preston Griffin on 04-08-2023 ALP [Catalytic activity/Vol] 72 U/L 34-104 [facility] Aspartate aminotransferase [ Enzymatic activity/volume] in Serum or PlasmaOrdered By: Preston Griffin on 04-08-2023 AST [Catalytic activity/Vol] 16 U/L 13-39 [facility] Automated erythrocytes count in urine sediment (number/area)Ordered By: Preston Griffin on 04-08-2023 RBC Auto (Urine sed) [#/Area] 3-4 [HPF] 0-4 [facility] Automated leukocytes count i n urine sediment (number/area)Ordered By: Preston Griffin on 04-08-2023 WBC Auto (Urine sed) [#/Area] 50-100 [HPF] 0-4 [facility] Bilirubin Test strip Ql (U)O rdered By: Preston Griffin on 04-08-2023 Bilirubin Ql (U) Negative Negative [facility] Bilirubin.total [Mass/volume ] in Serum or PlasmaOrdered By: Preston Griffin on 04-08-2023 Bilirubin [Mass/Vol] 0.5 mg/dL 0.3-1.0 [facility] Calcium [Mass/volume] in Ser um or PlasmaOrdered By: Preston Griffin on 04-08-2023 Calcium [Mass/Vol] 9.3 mg/dL 8.6-10.3 [facility] Carbon dioxide, total [Moles /volume] in Serum or PlasmaOrdered By: Preston Griffin on 04-08-2023 CO2 [Moles/Vol] 31.6 mmol/L 21.0-31.0 [facility] Chloride [Moles/volume] in S marium or PlasmaOrdered By: Preston Griffin on 04-08-2023 Chloride [Moles/Vol] 107 mmol/L 98-107 [facility] Cholesterol [Mass/volume] in Serum or PlasmaOrdered By: Teo Al on 04-08-2023 Cholesterol [Mass/Vol] 107 mg/dL 140-200 [facility] Comment on above: Chol less than 200 m g/dl low riskChol 201-239 mg/dl borderline riskChol 240 mg/dl and greater high risk Cholesterol in LDL Calc [Mas s/Vol]Ordered By: Teo Al on 04-08-2023 Cholesterol in LDL [Mass/Vol] 47 mg/dL 0-100 [facility] Comment on above: LDL ATP III CLASSIFI CATIONLDL less than 100 mg/dL OptimalLDL 100-129 mg/dL Near or above optimalLDL 130-159 mg/dL Borderline highLDL 160-189 mg/dL HighLDL greater than 189 mg/dL Very high Cholesterol in VLDL Calc [Ma ss/Vol]Ordered By: Teo Al on 04-08-2023 Cholesterol in VLDL [Mass/Vol] 26 mg/dL [facility] Color Auto (U)Ordered By: Jonh Griffin on 04-08-2023 Color (U) Yellow Yellow [facility] Creatinine [Mass/volume] in Serum or PlasmaOrdered By: Preston Griffin on 04-08-2023 Creatinine [Mass/Vol] 1.41 mg/dL 0.70-1.30 Fir [facility] Creatinine [Mass/volume] in UrineOrdered By: Preston Griffin on 04-08-2023 Creatinine (U) [Mass/Vol] 90.0 mg/dL 14.0-26.0 [facility] Erythrocyte distribution wid th Auto (RBC) [Ratio]Ordered By: Preston Griffin on 04-08-2023 Erythrocyte distribution width (RBC) [Ratio] 15.7 % 12.0-14.8 [facility] Ferritin [Mass/volume] in Se rum or PlasmaOrdered By: Preston Griffin on 04-08-2023 Ferritin [Mass/Vol] 34.1 ng/mL 23.9-336.2 [facility] Folate [Mass/volume] in Seru m or PlasmaOrdered By: Preston Griffin on 04-08-2023 Folate [Mass/Vol] 34.0 ng/mL >5.9 [facility] Comment on above: Folate reference ran ge: >5.9 ng/mlThe WHO technical consultation on folate and vitamin [id number] has determined that folate concentrations lessthan 4 ng/ml are considered deficient. Globulin Calc (S) [Mass/Vol] Ordered By: Preston Griffin on 04-08-2023 Globulin (S) [Mass/Vol] 2.8 g/dL F [facility] Glucose [Mass/volume] in Ser um or PlasmaOrdered By: Preston Griffin on 04-08-2023 Glucose [Mass/Vol] 107 mg/dL 70-100 [facility] Comment on above: ADA recommended refe rence rangeRandom Glucose Reference Range is dependent on time and content of last meal. Glucose of more than 200 mg/dL in a nonstressed, ambulatory subject supports the diagnosis of Diabetes Mellitus. Hematocrit Auto (Bld) [Volum e fraction]Ordered By: Preston Griffin on 04-08-2023 Hematocrit (Bld) [Volume fraction] 43.8 % 38.8-50.0 [facility] Hemoglobin [Mass/volume] in BloodOrdered By: Preston Griffin on 04-08-2023 Hemoglobin (Bld) [Mass/Vol] 14.3 g/dL 13.0-17.0 [facility] Iron [Mass/volume] in Serum or PlasmaOrdered By: Preston Griffin on 04-08-2023 Iron [Mass/Vol] 53 ug/dL 50-212 [facility] Iron binding capacity [Mass/ volume] in Serum or PlasmaOrdered By: Preston Griffin on 04-08-2023 Iron binding capacity [Mass/Vol] 370 ug/dL 255-450 [facility] Iron saturation [Mass Fracti on] in Serum or PlasmaOrdered By: Preston Griffin 04-08-2023 Iron saturation [Mass fraction] 14.3 % 20-50 [facility] Ketones Auto test strip (U) [Mass/Vol]Ordered By: Preston Griffin on 04-08-2023 Ketones (U) [Mass/Vol] Negative Negative [facility] - UrinalysisOrder ed By: Preston Griffin on 04-08-2023 Hyaline casts LM Ql (Urine sed) 9-19 [LPF] 0-8 [facility] Leukocytes [#/volume] correc phil for nucleated erythrocytes in Blood by Automated counOrdered By: Preston Griffin on 04-08-2023 WBC corrected for nucl RBC Auto (Bld) [#/Vol] 8.4 10*3/uL 4.1-10.5 [facility] MCH Auto (RBC) [Entitic mass ]Ordered By: Preston Griffin on 04-08-2023 MCH (RBC) [Entitic mass] 27.3 pg 27.5-35.2 [facility] MCHC Auto (RBC) [Mass/Vol]Or dered By: Preston Griffin on 04-08-2023 MCHC (RBC) [Mass/Vol] 32.6 g/dL 32.5-35.6 [facility] MCV Auto (RBC) [Entitic vol] Ordered By: Preston Griffin on 04-08-2023 MCV (RBC) [Entitic vol] 83.8 fL 83.5-101 [facility] Magnesium [Mass/volume] in S marium or PlasmaOrdered By: Preston Griffin on 04-08-2023 Magnesium [Mass/Vol] 2.2 mg/dL 1.9-2.7 [facility] Nitrite Test strip Ql (U)Ord ered By: Preston Griffin on 04-08-2023 Nitrite Ql (U) Positive Negative [facility] No Panel InformationOrdered By: Preston Griffin on 04-08-2023 Estimated GFR (CKD-EPI) 50.692 mL/Min [facility] Creatinine Clearance (Chem N/A [facility] Parathyrin.intact [Mass/volu me] in Serum or PlasmaOrdered By: Preston Griffin on 04-08-2023 Parathyrin.intact [Mass/Vol] 76.6 pg/mL [facility] Phosphate [Mass/volume] in S marium or PlasmaOrdered By: Preston Griffin on 04-08-2023 Phosphate [Mass/Vol] 2.8 mg/dL 2.5-4.5 [facility] Platelet mean volume Auto (B ld) [Entitic vol]Ordered By: Preston Griffin on 04-08-2023 Platelet mean volume (Bld) [Entitic vol] 8.6 fL 6.6-10.1 [facility] Platelets Auto (Bld) [#/Vol] Ordered By: Preston Griffin on 04-08-2023 Platelets (Bld) [#/Vol] 201 10*3/uL 150-450 [facility] Potassium [Moles/volume] in Serum or PlasmaOrdered By: Preston Griffin on 04-08-2023 Potassium [Moles/Vol] 4.5 mmol/L 3.5-5.1 [facility] Protein Auto test strip (U) [Mass/Vol]Ordered By: Preston Griffin on 04-08-2023 Protein (U) [Mass/Vol] Trace mg/dL Negative [facility] Protein [Mass/volume] in Ser um or PlasmaOrdered By: Preston Griffin on 04-08-2023 Protein [Mass/Vol] 7.0 g/dL 6.4-8.9 [facility] Protein [Mass/volume] in Uri neOrdered By: Preston Griffin on 04-08-2023 Protein (U) [Mass/Vol] 30 mg/dL 0-9 [facility] RBC Auto (Bld) [#/Vol]Ordere d By: Preston Griffin on 04-08-2023 RBC (Bld) [#/Vol] 5.22 10*6/uL 3.90-5.60 [facility] Serum or plasma albumin/glob ulin mass ratioOrdered By: Preston Griffin on 04-08-2023 Albumin/Globulin [Mass ratio] 1.5 {ratio} [facility] Serum or plasma anion gap de terminationOrdered By: Preston Griffin on 04-08-2023 Anion gap [Moles/Vol] 8.9 mmol/L 6.0-15.0 [facility] Serum or plasma high density lipoprotein (HDL) cholesterol measurementOrdered By: Teo Al on 04-08-2023 Cholesterol in HDL [Mass/Vol] 34 mg/dL 23-92 [facility] Comment on above: HDL CHOL ATP-III CLA SSIFICATION Cardiovascular RiskHDL > or equal to 60 mg/dL LOWHDL < 40 mg/dL HIGH Serum or plasma total choles terol/high density lipoprotein (HDL) cholesterol mass ratOrdered By: Teo Al on 04-08-2023 Cholesterol.total/Sonya sterol in HDL [Mass ratio] 3.1 {ratio} <5.0 [facility] Sodium [Moles/volume] in Ser um or PlasmaOrdered By: Preston Griffin on 04-08-2023 Sodium [Moles/Vol] 143 mmol/L 136-145 [facility] Specific gravity Auto test s trip (U) [Rel density]Ordered By: Preston Griffin on 04-08-2023 Specific gravity (U) [Rel density] 1.017 1.001-1.03 0 [facility] Squamous epithelial cells de tection in urine sediment by light microscopyOrdered By: Preston Griffin on 04-08-2023 Epithelial cells.squamous LM Ql (Urine sed) 0-1 [HPF] 0-2 [facility] Transferrin [Mass/volume] in Serum or PlasmaOrdered By: Preston Griffin on 04-08-2023 Transferrin [Mass/Vol] 264 mg/dL 203-362 [facility] Triglyceride [Mass/volume] i n Serum or PlasmaOrdered By: Teo Al on 04-08-2023 Triglyceride [Mass/Vol] 131 mg/dL 0-149 [facility] Comment on above: TRIG ATP III CLASSIF ICATIONTRIG less than 150 mg/dL NormalTRIG 150-199 mg/dL Borderline highTRIG 200-500 mg/dL High TRIG greater than 500 mg/dL Very highStandard traceable to the Center for Disease Conrtrol and Prevention (CDC) test method. Urate [Mass/volume] in Serum or PlasmaOrdered By: Preston Griffin on 04-08-2023 Urate [Mass/Vol] 6.0 mg/dL 4.4-7.6 [facility] Urea nitrogen [Mass/volume] in Serum or PlasmaOrdered By: Preston Griffin on 04-08-2023 Urea nitrogen [Mass/Vol] 27 mg/dL 7-25 [facility] Urine bacteria detection by automated methodOrdered By: Preston Griffin on 04-08-2023 Bacteria Auto Ql (U) 4+ None Seen [facility] Urine clarity by refractomet ry automatedOrdered By: Preston Griffin on 04-08-2023 Clarity Refractometry automated (U) Cloudy Clear [facility] Urine glucose measurement by automated test strip (mass/volume)Ordered By: Preston Griffin on 04-08-2023 Glucose Auto test strip (U) [Mass/Vol] Normal mg/dL Normal [facility] Urine hemoglobin detection b y automated test stripOrdered By: Preston Griffin on 04-08-2023 Hemoglobin Auto test strip Ql (U) 1+ Negative [facility] Urine leukocyte esterase det ection by automated test stripOrdered By: Preston Griffin on 04-08-2023 Leukocyte esterase Auto test strip Ql (U) 4+ Negative [facility] Urine protein/creatinine rat ioOrdered By: Preston Griffin on 04-08-2023 Protein/Creatinine (U) [Ratio] 333 mg/g{Cre} 0-200 [facility] Urobilinogen Auto test strip (U) [Mass/Vol]Ordered By: Preston Griffin on 04-08-2023 Urobilinogen (U) [Mass/Vol] Normal mg/dL Normal [facility] Vitamin B12 ser/plasOrdered By: Preston Griffin on 04-08-2023 Cobalamin (Vitamin B12) [Mass/Vol] 301 pg/mL 180-914 [facility] Vitamin D+Metabolites [Mass/ volume] in Serum or PlasmaOrdered By: Preston Griffin on 04-08-2023 Vitamin D+Metabolites [Mass/Vol] 37.5 ng/mL 30-100 [facility] Comment on above: VITAMIN D STATUS 25( OH)VITAMIN D RANGE (ng/mL) Deficient <20 Insufficient 20 to <30Sufficient 30 to 100Reference: Sixto MF,Federico NC, Palomo LESLIE, et al. Evaluation,treatment, and prevention of vitamin D deficiency; an Endocrine Society clinical practice guideline. JCEM. 2010; 96(7):1911-30. pH Auto test strip (U)Ordere d By: Preston Griffin on 04-08-2023 pH (U) 7.0 [pH] 5.0-9.0 [facility] Office Visit (Cardiology)on 01-22-2023 Follow-up visit [...] we can help. You may also call 1-658-UHSHNOW for free resources and assistance.; Status:Complete - [...] negative for complaint. Vitals Vital Signs Recorded: [id number] 09:57AM Heart Rate72, L Radial Lvbrsrrj606, LUE, Sitting Uyoadfsmi53, LUE, Sitting Height6 ft 2 in Imxihn408 lb BMI Jxrhznmudu29.35 kg/m2 BSA Calculat (more content not included)... Normal [employer] Tobacco Screening.on 023 Fall risk assessment a) No falls within the last year -[facility] sushil 250 DO Work Phone: Tobacco use status CP a) Yes M -[facility]ushil 250 DO Work Phone: Tobacco Screening. Yes MP-[facility] sushil 250 DO Work Phone: CULTURE URINEon 09-18-2022 CULTURE URINE Isolate 1 Pseudomonas aeruginosa >100,000 cfu/mL of ORGANISM 1 Pseudomonas aeruginosa ANTIBIOTIC M.I.C RX STATUS Piperacillin/Tazobactam <=4 S F Ceftazidime <=1 S F Imipenem 2 S F Amikacin <=2 S F Gentamicin 2 S F Tobramycin <=1 S F Ciprofloxacin <=0.25 S F Levofloxacin <=0.12 S F Normal [facility] Comment on above: Performed By: #### U RTPCR #### [facility] [address] [place] [address] Dr. Karen Pierce CALCULI, URINARYon 3 2,8 Dihydroxyadenine Normal [facility] Comment on above: Performed By: #### U A #### [facility] [address] [place] [address] Dr. Karen Pierce Ammonium Acid Urate Normal [facility] Comment on above: Performed By: #### U A #### [facility] [address] [address] [address] Karen Pierce Bilirubin Ql (U) Normal [facility] Comment on above: Performed By: #### U A #### [facility] [address] [place] [address] Dr. Karen Pierce Ca Oxalate Dihydrate Normal [facility] Comment on above: Performed By: #### U A #### [facility] [address] [place] [address] Dr. Karen Pierce CaHPO4 (Brushite) Normal [facility] Comment on above: Performed By: #### U A #### [facility] [address] [place] [address] Dr. Karen Pierce Calcium Bilirubinate [facility] Comment on above: Performed By: #### U A #### [facility] [address] [address] [address] Karen Pierce Calcium Carbonate [facility] Comment on above: Performed By: #### U A #### [facility] [address] [address] [address] Karen Pierce Calcium Oxalate Monohydrate 100 % [facility] Comment on above: Performed By: #### U A #### [facility] [address] [address] [address] Karen Pierce Calcium Palmitate [facility] Comment on above: Performed By: #### U A #### [facility] [address] [address] [address] Karen Pierce Calcium Phosphate [facility] Comment on above: Performed By: #### U A #### [facility] [address] [address] [address] Karen Pierce Calcium Stearate [facility] Comment on above: Performed By: #### U A #### [facility] [address] [address] [address] Karen Pierce Carbonate Apatite [facility] Comment on above: Performed By: #### U A #### [facility] [address] [address] [address] Karen Pierce Cellular Material [facility] Comment on above: Performed By: #### U A #### [facility] [address] [address] [address] Karen Pierce Cholesterol [facility] Comment on above: Performed By: #### U A #### [facility] [address] [address] [address] Karen Ramon (U) [facility] Comment on above: Performed By: #### U A #### [facility] [address] [address] [address] Karen Pierce Comment [facility] Comment on above: Performed By: #### U A #### [facility] [address] [place] [address] Dr. Karen Pierce Comment: Comment Normal [facility] Comment on above: Result Comment: yHacinth rhodes questions regarding Calculi Analysis contact [facility] at: [phone]. Performed By: #### U A #### [facility] [address] [place] [address] Dr. Karen Pierce Composition Comment Normal [facility] Comment on above: Result Comment: Perc entage (Represents the % composition) Performed By: #### U A #### [facility] [address] [place] [address] Dr. Karen Pierce Cystine [facility] Comment on above: Performed By: #### U A #### [facility] [address] [place] [address] Dr. Karen Pierce Disclaimer: Comment [facility] Comment on above: Result Comment: This test was developed and its performance characteristics determined by [facility]. It has not been cleared or approved by the Food and Drug Administration. Performed By: #### U A #### [facility] [address] [place] [address] Dr. Karen Pierce Dried Blood Normal [facility] Comment on above: Performed By: #### U A #### [facility] [address] [place] [address] Dr. Karen Pierce Drug or Metabolite Normal [facility] Comment on above: Performed By: #### U A #### [facility] [address] [place] [address] Dr. Karen Pierce Hydroxyapatite Normal [facility] Comment on above: Performed By: #### U A #### [facility] [address] [place] [address] Dr. Karen Pierce Mg NH4 PO4 (Struvite) [facility] Comment on above: Performed By: #### U A #### [facility] [address] [place] [address] Dr. Karen Pierce MgHPO4 (Newberyite) [facility] Comment on above: Performed By: #### U A #### [facility] [address] [address] [address] Karen Pierce Other component(s) Normal [facility] Comment on above: Performed By: #### U A #### [facility] [address] [address] [address] Karen Pierce PDF . Normal [facility] Comment on above: Performed By: #### U A #### [facility] [address] [address] [address] Karen Pierce Photo Comment Normal [facility] Comment on above: Result Comment: Phot ograph will follow under a separate cover Performed By: #### U A #### [facility] [address] [address] [address] Karen Pierce Please note: Comment [facility] Comment on above: Result Comment: Calc shirley report will follow via computer, mail or diesel locomotive firer/fireman delivery. Performed By: #### U A #### [facility] [address] [place] [address] Dr. Karen Pierce Size 5x5 [facility] Comment on above: Result Comment: Mult iple pieces received. Dimensions of the largest piece reported. Performed By: #### U A #### [facility] [address] [place] [address] Dr. Karen Pierce Sodium Acid Urate Normal [facility] Comment on above: Performed By: #### U A #### [facility] [address] [place] [address] Dr. Karen Pierce Source Comment [facility] Comment on above: Result Comment: Urin evelin Bladder Performed By: #### U A #### [facility] [address] [place] [address] Dr. Karen Pierce Triamterene [facility] Comment on above: Performed By: #### U A #### [facility] [address] [place] [address] Dr. Karen Pierce Uric Acid [facility] Comment on above: Performed By: #### U A #### [facility] [address] [place] [address] Dr. Karen Pierce Uric Acid Dihydrate [facility] Comment on above: Performed By: #### U A #### [facility] [address] [address] [address] Karen Pierce Weight 158 mg Normal [facility] Comment on above: Performed By: #### U A #### [facility] [address] [address] [address] Karen Pierce Xanthine Normal [facility] Comment on above: Performed By: #### U A #### [facility] [address] [address] [address] Karen Pierce ER URINE PROFILEon 3 Bilirubin Ql (U) Negative Normal NEGATIVE [facility] Comment on above: Performed By: #### U MICRO, ERUR #### [facility] [address] [place] [address] Dr. Karen Pierce Clarity (U) CLEAR Normal CLEAR [facility] Comment on above: Performed By: #### U MICRO, ERUR #### [facility] [address] [place] [address] Dr. Karen Pierce Color (U) YELLOW Normal YELLOW [facility] Comment on above: Performed By: #### U MICRO, ERUR #### [facility] [address] [place] [address] Dr. Karen Pierce ERUAHD A micrscopic examina tion will be performed if indicated. Normal [facility] Comment on above: Performed By: #### U MICRO, ERUR #### [facility] [address] [place] [address] Dr. Karen Pierce Glucose Ql (U) Negative Normal NEGATIVE [facility] Comment on above: Performed By: #### U MICRO, ERUR #### [facility] [address] [address] [address] Karen Pierce Hemoglobin Ql (U) LARGE Abnormal NEGATIVE [facility] Comment on above: Performed By: #### U MICRO, ERUR #### [facility] [address] [place] [address] Dr. Karen Pierce Ketones Ql (U) Negative Normal NEGATIVE [facility] Comment on above: Performed By: #### U MICRO, ERUR #### [facility] [address] [place] [address] Dr. Karen Pierce LEUKOCYTES LARGE Abnormal NEGATIVE [facility] Comment on above: Performed By: #### U MICRO, ERUR #### [facility] [address] [place] [address] Dr. Karen Pierce Nitrite Ql (U) Positive Abnormal NEGATIVE [facility] Comment on above: Performed By: #### U MICRO, ERUR #### [facility] [address] [place] [address] Dr. Karen Pierce pH (U) 5.5 [pH] Normal 5-9 [facility] Comment on above: Performed By: #### U MICRO, ERUR #### [facility] [address] [place] [address] Dr. Karen Pierce Protein (U) [Mass/Vol] 100 mg/dL Abnormal NEGAT BUZZ/ TRACE [facility] Comment on above: Performed By: #### U MICRO, ERUR #### [facility] [address] [place] [address] Dr. Karen Pierce SPEC GRAVITY 1.020 Normal 1.005-<=1. 025 [facility] Comment on above: Performed By: #### U MICRO, ERUR #### [facility] [address] [place] [address] Dr. Karen Pierce UR MICRO IND INDICATED Normal [facility] Comment on above: Performed By: #### U MICRO, ERUR #### [facility] [address] [place] [address] Dr. Karen Pierce Urobilinogen Qn (U) 1.0 {Tonio'U}/dL Normal 0.2 - 1. 0 [facility] Comment on above: Performed By: #### U MICRO, ERUR #### [facility] [address] [place] [address] Dr. Karen Pierce URINE MICROSCOPIC ONLYon BACTERIA SMALL Abnormal NONE SEEN [facility] Comment on above: Performed By: #### U MICRO, ERUR #### [facility] [address] [place] [address] Dr. Karen Pierce Bacteria identified Cx Nom (U) INDICATED Normal [facility] Comment on above: Performed By: #### U MICRO, ERUR #### [facility] [address] [place] [address] Dr. Karen Pierce CAST NONE SEEN Normal NONE SEEN [facility] Comment on above: Performed By: #### U MICRO, ERUR #### [facility] [address] [place] [address] Dr. Karen Pierce Crystals LM Nom (Urine sed) NONE SEEN Normal NONE SEEN [facility] Comment on above: Performed By: #### U MICRO, ERUR #### [facility] [address] [place] [address] Dr. Karen Pierce Epithelial cells LM Ql (Urine sed) NONE SEEN Normal NONE SEEN /RARE [facility] Comment on above: Performed By: #### U MICRO, ERUR #### [facility] [address] [place] [address] Dr. Karen Pierce MUCOUS NONE SEEN Normal NONE SEEN [facility] Comment on above: Performed By: #### U MICRO, ERUR #### [facility] [address] [place] [address] Dr. Karen Pierce RBC (U) [#/Vol] /uL Abnormal 0-2 [facility] Comment on above: Performed By: #### U MICRO, ERUR #### [facility] [address] [place] [address] Dr. Karen Pierce WBC 50-75 Abnormal NONE SEEN [facility] Comment on above: Performed By: #### U MICRO, ERUR #### [facility] [address] [place] [address] Dr. Karen Pierce PTH INTACTon 09-05-2022 PTH, Intact 38 pg/mL Normal 15-65 [facility] [facility] Comment on above: Performed By: #### P THINT #### [facility] [address] [place] [address] Dr. Karen Pierce FERRITINon 09-04-2022 Ferritin [Mass/Vol] 49.0 ng/mL Normal 26.0-388.0 [facility] Comment on above: Performed By: #### U RTPCR #### [facility] [address] [address] [address] Karen Pierce IRON AND TIBCon 09-04-2022 % SATURATION 10.3 % Normal [facility] Comment on above: Performed By: #### U RTPCR #### [facility] [address] [place] [address] Dr. Karen Pierce Iron [Mass/Vol] 33.0 ug/dL Critically low 65.0-175.0 [facility] Comment on above: Performed By: #### U RTPCR #### [facility] [address] [place] [address] Dr. Karen Pierce TIBC DIRECT 319.0 ug/dL Normal 250.0-450. 0 [facility] Comment on above: Performed By: #### U RTPCR #### [facility] [address] [place] [address] Dr. Karen Pierce UA RANDOMon 09-04-2022 Bilirubin Ql (U) Negative Normal NEGATIVE [facility] Comment on above: Performed By: #### U A #### [facility] [address] [place] [address] Dr. Karen Pierce Clarity (U) CLEAR Normal CLEAR [facility] Comment on above: Performed By: #### U A #### [facility] [address] [place] [address] Dr. Karen Pierce Color (U) LT. YELLOW Normal YELLOW [facility] Comment on above: Performed By: #### U A #### [facility] [address] [place] [address] Dr. Karen Pierce Glucose Ql (U) Negative Normal NEGATIVE [facility] Comment on above: Performed By: #### U A #### [facility] [address] [place] [address] Dr. Karen Pierce Hemoglobin Ql (U) MODERATE Abnormal NEGATIVE [facility] Comment on above: Performed By: #### U A #### [facility] [address] [place] [address] Dr. Karen Pierce Ketones Ql (U) Negative Normal NEGATIVE [facility] Comment on above: Performed By: #### U A #### [facility] [address] [place] [address] Dr. Karen Pierce LEUKOCYTES LARGE Abnormal NEGATIVE [facility] Comment on above: Performed By: #### U A #### [facility] [address] [place] [address] Dr. Karen Pierce Nitrite Ql (U) Positive Abnormal NEGATIVE [facility] Comment on above: Performed By: #### U A #### [facility] [address] [place] [address] Dr. Karen Pierce pH (U) 6.5 [pH] Normal 5-9 [facility] Comment on above: Performed By: #### U A #### [facility] [address] [place] [address] Dr. Karen Pierce SPEC GRAVITY 1.015 Normal 1.005-<=1. 025 [facility] Comment on above: Performed By: #### U A #### [facility] [address] [place] [address] Dr. Karen Pierce UA PROTEIN 30 mg/dl Abnormal NEGATIVE/ TRACE [facility] Comment on above: Performed By: #### U A #### [facility] [address] [place] [address] Dr. Karen Pierce Urobilinogen Qn (U) 0.2 {Tonio'U}/dL Normal 0.2 - 1. 0 [facility] Comment on above: Performed By: #### U A #### [facility] [address] [place] [address] Dr. Karen Pierce URINE T PROTEIN CREAT RATIOo n 09-04-2022 Protein (U) [Mass/Vol] 65.2 mg/dL Critically high <=12.0 [facility] Comment on above: Performed By: #### U RTPCR #### [facility] [address] [place] [address] Dr. Karen Pierce UR PROT CREAT RAT 0.76 Normal [facility] Comment on above: Performed By: #### U RTPCR #### [facility] [address] [place] [address] Dr. Karen Pierce URINE CREAT 85.95 mg/dL Normal 20.00-300. 00 [facility] Comment on above: Performed By: #### U RTPCR #### [facility] [address] [place] [address] Dr. Karen Pierce VIT B12 AND FOLATEon 023 Cobalamin (Vitamin B12) [Mass/Vol] 279.0 pg/mL Normal 193.0-986. 0 [facility] Comment on above: Performed By: #### U RTPCR #### [facility] [address] [place] [address] Dr. Karen Pierce FOLATE 17.80 ng/mL Normal 8.60-58.90 [facility] Comment on above: Performed By: #### U RTPCR #### [facility] [address] [place] [address] Dr. Karen Pierce VITAMIN D 25 OHon 09-04-2022 VIT D 25-OH 29.9 ng/mL Normal [facility] Comment on above: Performed By: #### U RTPCR #### [facility] [address] [place] [address] Dr. Karen Pierce VIT D RANGES SEE BELOW Normal [facility] Comment on above: Result Comment: <20 ng/mL Vit D deficient 20 - <30 ng/mL Vit D insufficient 30 - 100 ng/mL Vit D sufficient >100 ng/mL Potential Toxicity Performed By: #### U RTPCR #### [facility] [address] [place] [address] Dr. Karen Pierce CBC AUTO DIFFon 09-02-2022 BASO # 0.1 103/ul Normal 0.0-0.1 [facility] Comment on above: Performed By: #### C BC #### [facility] [address] [place] [address] Dr. Karen Pierce Basophils/100 WBC (Bld) 0.7 % Normal 0.2-2.0 [facility] Comment on above: Performed By: #### C BC #### [facility] [address] [place] [address] Dr. Karen Pierce EO # 0.2 103/ul Normal 0.0-0.7 [facility] Comment on above: Performed By: #### C BC #### [facility] [address] [place] [address] Dr. Karen Pierce Eosinophils/100 WBC (Bld) 2.6 % Normal 0.9-7.0 [facility] Comment on above: Performed By: #### C BC #### [facility] [address] [place] [address] Dr. Karen Pierce Erythrocyte distribution width (RBC) [Ratio] 13.8 % Normal 11.0-15.0 [facility] Comment on above: Performed By: #### C BC #### [facility] [address] [place] [address] Dr. Karen Pierce Hematocrit (Bld) [Volume fraction] 38.9 % Critically low 42.0-54.0 [facility] Comment on above: Performed By: #### C BC #### [facility] [address] [place] [address] Dr. Karen Pierce Hemoglobin (Bld) [Mass/Vol] 12.3 g/dL Critically low 14.0-18.0 [facility] Comment on above: Performed By: #### C BC #### [facility] [address] [place] [address] Dr. Karen Pierce IG # 0.01 10e3/ul Normal 0.00-0.03 [facility] Comment on above: Performed By: #### C BC #### [facility] [address] [place] [address] Dr. Karen Pierce IG % 0.1 % Normal 0.0-0.5 [facility] Comment on above: Performed By: #### C BC #### [facility] [address] [place] [address] Dr. Karen Pierce LYMPH # 1.9 103/ul Normal 1.2-3.8 [facility] Comment on above: Performed By: #### C BC #### [facility] [address] [place] [address] Dr. Karen Pierce Lymphocytes/100 WBC (Bld) 27.0 % Normal 20.5-60.0 [facility] Comment on above: Performed By: #### C BC #### [facility] [address] [place] [address] Dr. Karen Pierce MANUAL DIFF REQ NO Normal [facility] Comment on above: Performed By: #### C BC #### [facility] [address] [place] [address] Dr. Karen Pierce MCH (RBC) [Entitic mass] 27.8 pg Normal 25.9-34.0 [facility] Comment on above: Performed By: #### C BC #### [facility] [address] [place] [address] Dr. Karen Pierce MCHC (RBC) [Mass/Vol] 31.6 g/dL Normal 29.9-35.2 [facility] Comment on above: Performed By: #### C BC #### [facility] [address] [place] [address] Dr. Karen Pierce MCV (RBC) [Entitic vol] 87.8 fL Normal 80.0-94.0 [facility] Comment on above: Performed By: #### C BC #### [facility] [address] [place] [address] Dr. Karen Pierce MONO # 0.6 103/ul Normal 0.3-0.8 [facility] Comment on above: Performed By: #### C BC #### [facility] [address] [place] [address] Dr. Karen Pierce Monocytes/100 WBC (Bld) 8.8 % Normal 1.7-12.0 [facility] Comment on above: Performed By: #### C BC #### [facility] [address] [place] [address] Dr. Karen Pierce NEUT # 4.4 103/ul Normal 1.4-6.5 [facility] Comment on above: Performed By: #### C BC #### [facility] [address] [place] [address] Dr. Karen Pierce Neutrophils/100 WBC (Bld) 60.8 % Normal 43.0-75.0 [facility] Comment on above: Performed By: #### C BC #### [facility] [address] [place] [address] Dr. Karen Pierce Platelet mean volume (Bld) [Entitic vol] 9.9 fL Normal 9.5-13.5 [facility] Comment on above: Performed By: #### C BC #### [facility] [address] [place] [address] Dr. Karen Pierce PLT 181 103/ul Normal 150-450 [facility] Comment on above: Performed By: #### C BC #### [facility] [address] [place] [address] Dr. Karen Pierce RBC 4.43 106/ul Critically low 4.70-6.10 [facility] Comment on above: Performed By: #### C BC #### [facility] [address] [place] [address] Dr. Karen Pierce WBC 7.2 103/ul Normal 4.0-11.0 [facility] Comment on above: Performed By: #### C BC #### [facility] [address] [place] [address] Dr. Karen Pierce MAGNESIUMon 09-02-2022 Magnesium [Mass/Vol] 2.2 mg/dL Normal 1.8-2.4 [facility] Comment on above: Performed By: #### U A #### [facility] [address] [place] [address] Dr. Karen Pierce PHOSPHORUSon 09-02-2022 Phosphate [Mass/Vol] 2.9 mg/dL Normal 2.6-4.7 [facility] Comment on above: Performed By: #### U A #### [facility] [address] [place] [address] Dr. Karen Pierce PROF 14(COMP METB)on 023 Albumin [Mass/Vol] 3.5 g/dL Normal 3.4-5.0 [facility] Comment on above: Performed By: #### P THINT #### [facility] [address] [place] [address] Dr. Karen Pierce Albumin/Globulin [Mass ratio] 1.0 {ratio} Normal [facility] Comment on above: Performed By: #### P THINT #### [facility] [address] [place] [address] Dr. Karen Pierce ALP [Catalytic activity/Vol] 86 U/L Normal 46-116 [facility] Comment on above: Performed By: #### P THINT #### [facility] [address] [place] [address] Dr. Karen Pierce ALT [Catalytic activity/Vol] 17 U/L Normal 16-63 [facility] Comment on above: Performed By: #### P THINT #### [facility] [address] [place] [address] Dr. Karen Pierce Anion gap [Moles/Vol] 13.0 mmol/L Normal [facility] Comment on above: Performed By: #### P THINT #### [facility] [address] [place] [address] Dr. Karen Pierce AST [Catalytic activity/Vol] 14 U/L Critically low 15-37 [facility] Comment on above: Performed By: #### P THINT #### [facility] [address] [place] [address] Dr. Karen Pierce Bilirubin [Mass/Vol] 0.3 mg/dL Normal 0.2-1.0 [facility] Comment on above: Performed By: #### P THINT #### [facility] [address] [place] [address] Dr. Karen Pierce CO2 [Moles/Vol] 27.6 mmol/L Normal 21.0-32.0 [facility] Comment on above: Performed By: #### P THINT #### [facility] [address] [place] [address] Dr. Karen Pierce Creatinine [Mass/Vol] 1.48 mg/dL Critically high 0.70-1.30 [facility] Comment on above: Performed By: #### P THINT #### [facility] [address] [place] [address] Dr. Karen Pierce EGFR-AF SUDANESE 56 mL/min/1.73m2 Critically low >=60 [facility] Comment on above: Performed By: #### P THINT #### [facility] [address] [place] [address] Dr. Karen Pierce EGFR-NON AF SUDANESE 46 mL/min/1.73m2 Critically low >=60 [facility] Comment on above: Performed By: #### P THINT #### [facility] [address] [address] [address] Karen Pierce Globulin (S) [Mass/Vol] 3.6 g/dL Normal [facility] Comment on above: Performed By: #### P THINT #### [facility] [address] [place] [address] Dr. Karen Pierce Glucose [Mass/Vol] 105 mg/dL Normal 74-106 [facility] Comment on above: Performed By: #### P THINT #### [facility] [address] [place] [address] Dr. Karen Pierce Protein [Mass/Vol] 7.1 g/dL Normal 6.4-8.2 [facility] Comment on above: Performed By: #### P THINT #### [facility] [address] [place] [address] Dr. Karen Pierce Sodium [Moles/Vol] 142 mmol/L Normal 136-145 [facility] Comment on above: Performed By: #### P THINT #### [facility] [address] [place] [address] Dr. Karen Pierce Urea nitrogen/Creatinine [Mass ratio] 16.2 mg/mg Normal [facility] Comment on above: Performed By: #### P THINT #### [facility] [address] [place] [address] Dr. Karen Pierce PROF CHEM 8 (BAS METB)on Anion gap [Moles/Vol] 11.1 mmol/L Normal [facility] Comment on above: Performed By: #### U A #### [facility] [address] [place] [address] Dr. Karen Pierce Calcium [Mass/Vol] 8.7 mg/dL Normal 8.5-10.1 [facility] Comment on above: Performed By: #### U A #### [facility] [address] [place] [address] Dr. Karen Pierce Performed By: #### P THINT #### [facility] [address] [place] [address] Dr. Karen Pierce Chloride [Moles/Vol] 106 mmol/L Normal 98-107 [facility] Comment on above: Performed By: #### U A #### [facility] [address] [place] [address] Dr. Karen Pierce Performed By: #### P THINT #### [facility] [address] [place] [address] Dr. Karen Pierce CO2 [Moles/Vol] 28.5 mmol/L Normal 21.0-32.0 [facility] Comment on above: Performed By: #### U A #### [facility] [address] [place] [address] Dr. Karen Pierce Creatinine [Mass/Vol] 1.44 mg/dL Critically high 0.70-1.30 [facility] Comment on above: Performed By: #### U A #### [facility] [address] [place] [address] Dr. Karen Pierce EGFR-AF SUDANESE 58 mL/min/1.73m2 Critically low >=60 [facility] Comment on above: Performed By: #### U A #### [facility] [address] [place] [address] Dr. Karen Pierce EGFR-NON AF SUDANESE 47 mL/min/1.73m2 Critically low >=60 [facility] Comment on above: Performed By: #### U A #### [facility] [address] [place] [address] Dr. Karen Pierce Glucose [Mass/Vol] 104 mg/dL Normal 74-106 [facility] Comment on above: Performed By: #### U A #### [facility] [address] [place] [address] Dr. Karen Pierce Potassium [Moles/Vol] 4.6 mmol/L Normal 3.5-5.1 [facility] Comment on above: Performed By: #### U A #### [facility] [address] [place] [address] Dr. Karen Pierce Performed By: #### P THINT #### [facility] [address] [place] [address] Dr. Karen Pierce Sodium [Moles/Vol] 141 mmol/L Normal 136-145 [facility] Comment on above: Performed By: #### U A #### [facility] [address] [place] [address] Dr. Karen Pierce Urea nitrogen [Mass/Vol] 24.0 mg/dL Critically high 7.0-18.0 [facility] Comment on above: Performed By: #### U A #### [facility] [address] [place] [address] Dr. Karen Pierce Performed By: #### P THINT #### [facility] [address] [place] [address] Dr. Karen Pierce Urea nitrogen/Creatinine [Mass ratio] 16.7 mg/mg Normal [facility] Comment on above: Performed By: #### U A #### [facility] [address] [place] [address] Dr. Karen Pierce PROTIMEon 09-02-2022 INR Coag (PPP) [Relative time] 1.01 {INR} Normal [facility] Comment on above: Performed By: #### P TT, PT #### [facility] [address] [place] [address] Dr. Karen Pierce INR GUIDELINES SEE BELOW Normal [facility] Comment on above: Result Comment: EMY RED INR: 2.0 - 3.0 CONDITIONS NOT LISTED BELOW 2.5 - 3.5 FOR PROSTHETIC HEART VALVE REPLACEMENT 2.5 - 3.5 RECURRENT THROMBOSIS Performed By: #### P TT, PT #### [facility] [address] [place] [address] Dr. Karen Pierce PT Coag (PPP) [Time] 10.7 s Normal 9.0-11.6 [facility] Comment on above: Performed By: #### P TT, PT #### [facility] [address] [address] [address] Karen Pierce PTTon 09-02-2022 aPTT Coag (Bld) [Time] 28.2 s Normal 22.3-36.2 Th e [facility] Comment on above: Performed By: #### P TT, PT #### [facility] [address] [address] [address] Karen Pierce URIC ACID SERUMon 09-02-2022 Urate [Mass/Vol] 4.8 mg/dL Normal 3.5-7.2 [facility] Comment on above: Performed By: #### P THINT #### [facility] [address] [place] [address] Dr. Karen Pierce Creatinine (Bld) [Mass/Vol]O rdered By: Margarito Valentine on 08-16-2022 Creatinine [Mass/Vol] 1.5 mg/dL 0.6-1.3 [facility] Comment on above: ER/ESD physician is notified/shown all ISTAT results.Critical values may be confirmed by laboratory testing ifdeemed necessary by ER attending doctor. Creatinine (Bld) [Mass/Vol]O rdered By: Heather Omalley on 07-24-2022 Creatinine [Mass/Vol] 1.6 mg/dL 0.6-1.3 [facility] Comment on above: ER/ESD physician is notified/shown all ISTAT results.Critical values may be confirmed by laboratory testing ifdeemed necessary by ER attending doctor. No Panel InformationOrdered By: Heather Omalley on 07-24-2022 POC Estimated GFR 51 [facility] Comment on above: GFR estimated refere nce range: According to KDOQI guidelines, <60 ml/min/1.73m2 is sufficient to diagnose a patient with chronic kidney disease. POC Estimated GFR Non- Amer 42 [facility] Blood activated clotting alcho e by coagulation assayOrdered By: Margarito Valentine on 07-02-2022 ACT Coag (Bld) 215 s 90-139 [facility] Comment on above: Reference Range: 90- 139 (Non-heparinized) Basophils Auto (Bld) [#/Vol] Ordered By: Margarito Valentine on 06-21-2022 Basophils (Bld) [#/Vol] 0.1 10*3/uL 0.0-0.2 [facility] Basophils/100 WBC Auto (Bld) Ordered By: Margarito Valentine on 06-21-2022 Basophils/100 WBC (Bld) 0.9 % . [facility] Creatinine and Glomerular fi ltration rate.predicted panel (S/P/Bld)Ordered By: Margarito Valentine on 06-21-2022 Creatinine [Mass/Vol] 1.24 mg/dL 0.64-1.27 [facility] Eosinophils Auto (Bld) [#/Vo l]Ordered By: Margarito Valentine on 06-21-2022 Eosinophils (Bld) [#/Vol] 0.2 10*3/uL 0.0-0.45 [facility] Eosinophils/100 WBC Auto (Bl d)Ordered By: Margarito Valentine on 06-21-2022 Eosinophils/100 WBC (Bld) 2.5 % . [facility] Erythrocyte distribution wid th Auto (RBC) [Ratio]Ordered By: Margarito Valentine on 06-21-2022 Erythrocyte distribution width (RBC) [Ratio] 18.0 % 12.0-14.8 [facility] Estimated glomerular filtrat ion rate (GFR) non- AmericanOrdered By: Margarito Valentine on 06-21-2022 GFR/1.73 sq M.predicted among non-blacks MDRD (S/P/Bld) [Vol rate/Area] 56 mL/Min [facility] Hematocrit Auto (Bld) [Volum e fraction]Ordered By: Margarito Valentien on 06-21-2022 Hematocrit (Bld) [Volume fraction] 37.7 % 38.8-50.0 [facility] Hemoglobin [Mass/volume] in BloodOrdered By: Margarito Valentine on 06-21-2022 Hemoglobin (Bld) [Mass/Vol] 12.3 g/dL 13.0-17.0 [facility] Leukocytes [#/volume] correc phil for nucleated erythrocytes in Blood by Automated counOrdered By: Margarito Valentine on 06-21-2022 WBC corrected for nucl RBC Auto (Bld) [#/Vol] 7.1 10*3/uL 4.1-10.5 [facility] Lymphocytes Auto (Bld) [#/Vo l]Ordered By: Margarito Valentine on 06-21-2022 Lymphocytes (Bld) [#/Vol] 1.3 10*3/uL 1.00-4.8 [facility] Lymphocytes/100 WBC Auto (Bl d)Ordered By: Margarito Valentine on 06-21-2022 Lymphocytes/100 WBC (Bld) 18.7 % . [facility] MCH Auto (RBC) [Entitic mass ]Ordered By: Margarito Valentine on 06-21-2022 MCH (RBC) [Entitic mass] 28.2 pg 27.5-35.2 [facility] MCHC Auto (RBC) [Mass/Vol]Or dered By: Margarito Valentine on 06-21-2022 MCHC (RBC) [Mass/Vol] 32.6 g/dL 32.5-35.6 [facility]ir [facility] MCV Auto (RBC) [Entitic vol] Ordered By: Margarito Valentine on 06-21-2022 MCV (RBC) [Entitic vol] 86.5 fL 83.5-101 [facility] Monocytes Auto (Bld) [#/Vol] Ordered By: Margarito Valentine on 06-21-2022 Monocytes (Bld) [#/Vol] 0.7 10*3/uL 0.0-0.8 [facility] Monocytes/100 WBC Auto (Bld) Ordered By: Margarito Valentine on 06-21-2022 Monocytes/100 WBC (Bld) 10.3 % . [facility] Neutrophils Auto (Bld) [#/Vo l]Ordered By: Margarito Valentine on 06-21-2022 Neutrophils (Bld) [#/Vol] 4.8 10*3/uL 1.8-7.7 [facility] Neutrophils/100 WBC Auto (Bl d)Ordered By: Margarito Valentine on 06-21-2022 Neutrophils/100 WBC (Bld) 67.6 % . [facility] No Panel InformationOrdered By: Margarito Valentine on 06-21-2022 Estimated GFR () > 60 mL/Min [facility] Comment on above: GFR estimated refere nce range: According to KDOQI guidelines, <60 ml/min/1.73m2 is sufficient to diagnose a patient with chronic kidney disease. Pharmacy Creatinine Clearance (Chem N/A [facility] Nucleated erythrocytes [Pres ence] in Blood by Automated countOrdered By: Margarito Valentine on 06-21-2022 Nucleated RBC Auto Ql (Bld) 0.1 /100{WBC} 0-0.5 [facility] Platelet mean volume Auto (B ld) [Entitic vol]Ordered By: Margarito Valentine on 06-21-2022 Platelet mean volume (Bld) [Entitic vol] 8.2 fL 6.6-10.1 [facility] Platelets Auto (Bld) [#/Vol] Ordered By: Margarito Valentine on 06-21-2022 Platelets (Bld) [#/Vol] 149 10*3/uL 150-450 [facility] RBC Auto (Bld) [#/Vol]Ordere d By: Margarito Valentine on 06-21-2022 RBC (Bld) [#/Vol] 4.36 10*6/uL 3.90-5.60 [facility] Serum or plasma anion gap de terminationOrdered By: Margarito Valentine on 06-21-2022 Anion gap [Moles/Vol] 10.8 mmol/L 6.0-15.0 [facility] Serum or plasma calcium elan urement (mass/volume)Ordered By: Margarito Valentine on 06-21-2022 Calcium [Mass/Vol] 8.8 mg/dL 8.2-10.2 [facility] Serum or plasma chloride herb surement (moles/volume)Ordered By: Margarito Valentine on 06-21-2022 Chloride [Moles/Vol] 107 mmol/L 95-114 [facility] Serum or plasma glucose elan urement (mass/volume)Ordered By: Margarito Valentine on 06-21-2022 Glucose [Mass/Vol] 103 mg/dL 70-100 [facility] Comment on above: ADA recommended refe rence rangeRandom Glucose Reference Range is dependent on time and content of last meal. Glucose of more than 200 mg/dL in a nonstressed, ambulatory subject supports the diagnosis of Diabetes Mellitus. Serum or plasma potassium me asurement (moles/volume)Ordered By: Margarito Valentine on 06-21-2022 Potassium [Moles/Vol] 4.2 mmol/L 3.5-5.1 [facility] Serum or plasma sodium measu rement (moles/volume)Ordered By: Margarito Valentine on 06-21-2022 Sodium [Moles/Vol] 138 mmol/L 136-146 [facility] Serum or plasma total carbon dioxide measurement (moles/volume)Ordered By: Margarito Valentine on 06-21-2022 CO2 [Moles/Vol] 24.4 mmol/L 22.0-30.0 [facility] Serum or plasma urea nitroge n measurement (mass/volume)Ordered By: Margarito Valentine on 06-21-2022 Urea nitrogen [Mass/Vol] 18 mg/dL 02-15 [facility] WBC Auto (Bld) [#/Vol]Ordere d By: Margarito Valentine on 06-21-2022 WBC (Bld) [#/Vol] 7.1 10*3/uL 4.1-10.5 [facility] Office Visit (Cardiology)on 06-03-2022 Follow-up visit [...] [place] [facility] [place]. 76-year-old white male who I saw [...] Signs Recorded: 03Jun2022 03:38PM Heart Rate71, Apical Tldqvioy489, LUE, Sitting Pktfwmgoc28, LUE, Sitting Height6 ft 2 in Iysjsb170 lb BMI Ruptmgspwe87.45 kg/m2 BSA Calculated2.2 Tobacco Useb) No PHQ-2 [...] , regular (more content not included)... Normal [employer] Tobacco Screening.on 023 Adult depression screening assessment No [facility] [employer] [facility] DO Work Phone: Fall risk assessment a) No falls within the last year [facility] [employer] 250 DO Work Phone: Tobacco use status [facility] b) No M [facility] [employer] DO Work Phone: Basophils Auto (Bld) [#/Vol] Ordered By: Bernabe Cr on 05-22-2022 Basophils (Bld) [#/Vol] 0.1 10*3/uL 0.0-0.2 [facility] Basophils/100 WBC Auto (Bld) Ordered By: Bernabe Cr on 05-22-2022 Basophils/100 WBC (Bld) 1.2 % . [facility] Creatinine and Glomerular fi ltration rate.predicted panel (S/P/Bld)Ordered By: Bernabe Cr on 05-22-2022 Creatinine [Mass/Vol] 1.78 mg/dL 0.64-1.27 [facility] Eosinophils Auto (Bld) [#/Vo l]Ordered By: Bernabe Cr on 05-22-2022 Eosinophils (Bld) [#/Vol] 0.3 10*3/uL 0.0-0.45 [facility] Eosinophils/100 WBC Auto (Bl d)Ordered By: Bernabe Cr on 05-22-2022 Eosinophils/100 WBC (Bld) 3.6 % . [facility] Erythrocyte distribution wid th Auto (RBC) [Ratio]Ordered By: Bernabe Cr on 05-22-2022 Erythrocyte distribution width (RBC) [Ratio] 15.3 % 12.0-14.8 [facility] Estimated glomerular filtrat ion rate (GFR) non- AmericanOrdered By: Bernabe Cr on 05-22-2022 GFR/1.73 sq M.predicted among non-blacks MDRD (S/P/Bld) [Vol rate/Area] 37 mL/Min [facility] Hematocrit Auto (Bld) [Volum e fraction]Ordered By: Bernabe Cr on 05-22-2022 Hematocrit (Bld) [Volume fraction] 36.2 % 38.8-50.0 [facility] Hemoglobin [Mass/volume] in BloodOrdered By: Bernabe Cr on 05-22-2022 Hemoglobin (Bld) [Mass/Vol] 11.7 g/dL 13.0-17.0 [facility] Leukocytes [#/volume] correc phil for nucleated erythrocytes in Blood by Automated counOrdered By: Bernabe Cr on 05-22-2022 WBC corrected for nucl RBC Auto (Bld) [#/Vol] 8.1 10*3/uL 4.1-10.5 [facility] Lymphocytes Auto (Bld) [#/Vo l]Ordered By: Bernabe Cr on 05-22-2022 Lymphocytes (Bld) [#/Vol] 1.4 10*3/uL 1.00-4.8 [facility] Lymphocytes/100 WBC Auto (Bl d)Ordered By: Bernabe Cr on 05-22-2022 Lymphocytes/100 WBC (Bld) 16.9 % . [facility] MCH Auto (RBC) [Entitic mass ]Ordered By: Bernabe Cr on 05-22-2022 MCH (RBC) [Entitic mass] 27.4 pg 27.5-35.2 [facility] MCHC Auto (RBC) [Mass/Vol]Or dered By: Bernabe Cr on 05-22-2022 MCHC (RBC) [Mass/Vol] 32.5 g/dL 32.5-35.6 [facility] MCV Auto (RBC) [Entitic vol] Ordered By: Bernabe Cr on 05-22-2022 MCV (RBC) [Entitic vol] 84.3 fL 83.5-101 [facility] Monocytes Auto (Bld) [#/Vol] Ordered By: Bernabe Cr on 05-22-2022 Monocytes (Bld) [#/Vol] 0.8 10*3/uL 0.0-0.8 [facility] Monocytes/100 WBC Auto (Bld) Ordered By: Bernabe Cr on 05-22-2022 Monocytes/100 WBC (Bld) 10.1 % . [facility] Neutrophils Auto (Bld) [#/Vo l]Ordered By: Bernabe Cr on 05-22-2022 Neutrophils (Bld) [#/Vol] 5.6 10*3/uL 1.8-7.7 [facility] Neutrophils/100 WBC Auto (Bl d)Ordered By: Brenabe Cr on 05-22-2022 Neutrophils/100 WBC (Bld) 68.2 % . [facility] No Panel InformationOrdered By: Bernabe Cr on 05-22-2022 Estimated GFR () 45 mL/Min [facility] Comment on above: GFR estimated refere nce range: According to KDOQI guidelines, <60 ml/min/1.73m2 is sufficient to diagnose a patient with chronic kidney disease. Pharmacy Creatinine Clearance (Chem 39.77 [facility] Nucleated erythrocytes [Pres ence] in Blood by Automated countOrdered By: Bernabe Cr on 05-22-2022 Nucleated RBC Auto Ql (Bld) 0.1 /100{WBC} 0-0.5 [facility] Platelet mean volume Auto (B ld) [Entitic vol]Ordered By: Bernabe Cr on 05-22-2022 Platelet mean volume (Bld) [Entitic vol] 8.7 fL 6.6-10.1 [facility] Platelets Auto (Bld) [#/Vol] Ordered By: Bernabe Cr on 05-22-2022 Platelets (Bld) [#/Vol] 198 10*3/uL 150-450 [facility] RBC Auto (Bld) [#/Vol]Ordere d By: Beranbe Cr on 05-22-2022 RBC (Bld) [#/Vol] 4.29 10*6/uL 3.90-5.60 [facility] Serum or plasma anion gap de terminationOrdered By: Bernabe Cr on 05-22-2022 Anion gap [Moles/Vol] 13.3 mmol/L 6.0-15.0 [facility] Serum or plasma calcium elan urement (mass/volume)Ordered By: Bernabe Cr on 05-22-2022 Calcium [Mass/Vol] 8.3 mg/dL 8.2-10.2 [facility] Serum or plasma chloride herb surement (moles/volume)Ordered By: Bernabe Cr on 05-22-2022 Chloride [Moles/Vol] 104 mmol/L 95-114 [facility] Serum or plasma glucose elan urement (mass/volume)Ordered By: Bernabe Cr on 05-22-2022 Glucose [Mass/Vol] 180 mg/dL 70-100 [facility] Comment on above: ADA recommended refe rence rangeRandom Glucose Reference Range is dependent on time and content of last meal. Glucose of more than 200 mg/dL in a nonstressed, ambulatory subject supports the diagnosis of Diabetes Mellitus. Serum or plasma potassium me asurement (moles/volume)Ordered By: Bernabe Cr on 05-22-2022 Potassium [Moles/Vol] 3.3 mmol/L 3.5-5.1 [facility] Serum or plasma sodium measu rement (moles/volume)Ordered By: Bernabe Cr on 05-22-2022 Sodium [Moles/Vol] 137 mmol/L 136-146 [facility] Serum or plasma total carbon dioxide measurement (moles/volume)Ordered By: Bernabe Cr on 05-22-2022 CO2 [Moles/Vol] 23.0 mmol/L 22.0-30.0 [facility] Serum or plasma urea nitroge n measurement (mass/volume)Ordered By: Bernabe Cr on 05-22-2022 Urea nitrogen [Mass/Vol] 21 mg/dL 9-23 [facility] WBC Auto (Bld) [#/Vol]Ordere d By: Bernabe Cr on 05-22-2022 WBC (Bld) [#/Vol] 8.1 10*3/uL 4.1-10.5 [facility] No Panel InformationOrdered By: Bernabe Cr on 05-21-2022 25-Hydroxy Vitamin D Total 15.9 ng/mL 30-100 [facility] Comment on above: VITAMIN D STATUS 25( [place])VITAMIN D RANGE (ng/mL) Deficient <20 Insufficient 20 to <30Sufficient 30 to 100Reference: Sixto MF,Federico NC, Palomo LESLIE, et al. Evaluation,treatment, and prevention of vitamin D deficiency; an Endocrine Society clinical practice guideline. JCEM. 2010; 96(7):1911-30. Vitamin C level 0.2 mg/dL 0.4-2.0 [facility] Comment on above: This test was develo ped and its performance characteristicsdetermined by [employer]. It has not been cleared orapproved by the Food and Drug Administration.Vitamin C deficiency is generally defined as plasma orserum concentrations less than 0.2 mg/dL and levels between0.2 and 0.4 mg/dL are considered low.Performed at: [address] [id number] Director: Mamadou Rodriguez MD, Phone: [phone] Folate [Mass/volume] in Seru m or PlasmaOrdered By: Taz Barnes on 05-20-2022 Folate [Mass/Vol] 5.5 ng/mL >5.9 [facility] Comment on above: Folate reference ran ge: >5.9 ng/mlThe WHO technical consultation on folate and vitamin [id number] has determined that folate concentrations lessthan 4 ng/ml are considered deficient. Laboratory - Chemistry and C hemistry - challengeOrdered By: Taz Barnes on 05-20-2022 Cobalamin (Vitamin B12) [Mass/Vol] 169 pg/mL 180-914 [facility] No Panel InformationOrdered By: Taz Barnes on 05-20-2022 Ova and Parasite Result 1 [facility] Ova and Parasite Result 1 [facility] Ova or parasites identificat ionOrdered By: Taz Barnes on 05-20-2022 Ova and parasites identified LM Nom (Unsp spec) [facility] Ova and parasites identified LM Nom (Unsp spec) [facility] Laboratory - Chemistry and C hemistry - challengeOrdered By: Janice Gonzalez on 05-19-2022 Magnesium [Mass/Vol] 1.7 mg/dL 1.6-2.6 [facility] Automated erythrocytes count in urine sediment (number/area)Ordered By: Taz Barnes on 05-18-2022 RBC Auto (Urine sed) [#/Area] 50-100 [HPF] 0-4 [facility] Automated leukocytes count i n urine sediment (number/area)Ordered By: Taz Barnes on 05-18-2022 WBC Auto (Urine sed) [#/Area] Innumerable [HPF] 0-4 [facility] Automated urine hyaline cast s count (number/volume)Ordered By: Taz Barnes on 05-18-2022 Hyaline casts Auto (U) [#/Vol] None seen [LPF] 0-1 [facility] Bilirubin Test strip Ql (U)O rdered By: Taz Barnes on 05-18-2022 Bilirubin Ql (U) Negative Negative [facility] Casts typing in urine sedime nt by light microscopyOrdered By: Taz Barnes on 05-18-2022 Casts LM Nom (Urine sed) None seen [LPF] None Seen [facility] Color Auto (U)Ordered By: Starr Barnes on 05-18-2022 Color (U) Yellow Yellow [facility] Ketones Auto test strip (U) [Mass/Vol]Ordered By: Taz Barnes on 05-18-2022 Ketones (U) [Mass/Vol] Negative Negative [facility] Nitrite Test strip Ql (U)Ord ered By: Taz Barnes on 05-18-2022 Nitrite Ql (U) Negative Negative [facility] Protein Auto test strip (U) [Mass/Vol]Ordered By: Taz Barnes on 05-18-2022 Protein (U) [Mass/Vol] 100 mg/dL Negative [facility] Specific gravity Auto test s trip (U) [Rel density]Ordered By: Taz Barnes on 05-18-2022 Specific gravity (U) [Rel density] 1.010 1.001-1.03 0 [facility] Squamous epithelial cells de tection in urine sediment by light microscopyOrdered By: Taz Barnes on 05-18-2022 Epithelial cells.squamous LM Ql (Urine sed) 1-2 [HPF] 0-2 [facility] Urine bacteria detection by automated methodOrdered By: Taz Barnes on 05-18-2022 Bacteria Auto Ql (U) None seen None Seen [facility] Urine clarity by refractomet ry automatedOrdered By: Taz Barnes on 05-18-2022 Clarity Refractometry automated (U) Turbid Clear [facility] Urine culture routineOrdered By: Taz Barnes on 05-18-2022 Bacteria identified Cx Nom (U) No Growth 2 Days [facility] Bacteria identified Cx Nom (U) No Growth 2 Days [facility] Urine glucose measurement by automated test strip (mass/volume)Ordered By: Taz Barnes on 05-18-2022 Glucose Auto test strip (U) [Mass/Vol] Normal mg/dL Normal [facility] Urine hemoglobin detection b y automated test stripOrdered By: Taz Barens on 05-18-2022 Hemoglobin Auto test strip Ql (U) 2+ Negative [facility] Urine leukocyte esterase det ection by automated test stripOrdered By: Taz Barnes on 05-18-2022 Leukocyte esterase Auto test strip Ql (U) 4+ Negative [facility] Urobilinogen Auto test strip (U) [Mass/Vol]Ordered By: Taz Barnes on 05-18-2022 Urobilinogen (U) [Mass/Vol] Normal mg/dL Normal [facility] Yeast detection in urine sed iment by light microscopyOrdered By: Taz Barnes on 05-18-2022 Yeast LM Ql (Urine sed) None seen [HPF] None Se en [facility] pH Auto test strip (U)Ordere d By: Taz Barnes on 05-18-2022 pH (U) 7.5 [pH] 5.0-9.0 [facility] Activated partial thrombopla stin time (aPTT) in platelet poor plasma by coagulation aOrdered By: Taz Barnes on 05-16-2022 aPTT Coag (PPP) [Time] 29.5 s 25.1-36.5 [facility] Body fluid albumin measureme nt (mass/volume)Ordered By: Taz Barnes on 05-16-2022 Albumin (Body fld) [Mass/Vol] 2.9 g/dL 3.2-5.5 [facility] CBC AUTO DIFFon 05-16-2022 BASO # 0.0 103/ul Normal 0.0-0.1 [facility] Comment on above: Performed By: #### C BC #### [facility] [address] [address] [address] Karen Pierce Basophils/100 WBC (Bld) 0.3 % Normal 0.2-2.0 [facility] Comment on above: Performed By: #### C BC #### [facility] [address] [address] [address] Karen Pierce EO # 0.1 103/ul Normal 0.0-0.7 [facility] Comment on above: Performed By: #### C BC #### [facility] [address] [place] [address] Dr. Karen Pierce Eosinophils/100 WBC (Bld) 0.7 % Critically low 0.9-7.0 [facility] Comment on above: Performed By: #### C BC #### [facility] [address] [place] [address] Dr. Karen Pierce Erythrocyte distribution width (RBC) [Ratio] 14.8 % Normal 11.0-15.0 [facility] Comment on above: Performed By: #### C BC #### [facility] [address] [place] [address] Dr. Karen Pierce Hematocrit (Bld) [Volume fraction] 39.4 % Critically low 42.0-54.0 [facility] Comment on above: Performed By: #### C BC #### [facility] [address] [place] [address] Dr. Karen Pierce Hemoglobin (Bld) [Mass/Vol] 12.6 g/dL Critically low 14.0-18.0 [facility] Comment on above: Performed By: #### C BC #### [facility] [address] [place] [address] Dr. Karen Pierce IG # 0.04 10e3/ul Critically high 0.00-0.03 [facility] Comment on above: Performed By: #### C BC #### [facility] [address] [place] [address] Dr. Karen Pierce IG % 0.4 % Normal 0.0-0.5 [facility] Comment on above: Performed By: #### C BC #### [facility] [address] [place] [address] Dr. Karen Pierce LYMPH # 1.2 103/ul Normal 1.2-3.8 [facility] Comment on above: Performed By: #### C BC #### [facility] [address] [place] [address] Dr. Karen Pierce Lymphocytes/100 WBC (Bld) 11.8 % Critically low 20.5-60.0 [facility] Comment on above: Performed By: #### C BC #### [facility] [address] [place] [address] Dr. Karen Pierce MANUAL DIFF REQ NO Normal [facility] Comment on above: Performed By: #### C BC #### [facility] [address] [place] [address] Dr. Karen Pierce MCH (RBC) [Entitic mass] 27.5 pg Normal 25.9-34.0 [facility] Comment on above: Performed By: #### C BC #### [facility] [address] [place] [address] Dr. Karen Pierce MCHC (RBC) [Mass/Vol] 32.0 g/dL Normal 29.9-35.2 [facility] Comment on above: Performed By: #### C BC #### [facility] [address] [place] [address] Dr. Karen Pierce MCV (RBC) [Entitic vol] 86.0 fL Normal 80.0-94.0 [facility] Comment on above: Performed By: #### C BC #### [facility] [address] [place] [address] Dr. Karen Pierce MONO # 1.4 103/ul Critically high 0.3-0.8 [facility] Comment on above: Performed By: #### C BC #### [facility] [address] [place] [address] Dr. Karen Pierce Monocytes/100 WBC (Bld) 13.8 % Critically high 1.7-12. 0 [facility] Comment on above: Performed By: #### C BC #### [facility] [address] [place] [address] Dr. Karen Pierce NEUT # 7.6 103/ul Critically high 1.4-6.5 [facility] Comment on above: Performed By: #### C BC #### [facility] [address] [place] [address] Dr. Karen Pierce Neutrophils/100 WBC (Bld) 73.0 % Normal 43.0-75.0 [facility] Comment on above: Performed By: #### C BC #### [facility] [address] [place] [address] Dr. Karen Pierce Platelet mean volume (Bld) [Entitic vol] 10.6 fL Normal 9.5-13.5 [facility] Comment on above: Performed By: #### C BC #### [facility] [address] [place] [address] Dr. Karen Pierce PLT 193 103/ul Normal 150-450 [facility] Comment on above: Performed By: #### C BC #### [facility] [address] [place], [place] [id number] Dr. Karen Pierce RBC 4.58 106/ul Critically low 4.70-6.10 [facility] Comment on above: Performed By: #### C BC #### [facility] [address] [place] [address] Dr. Karen Pierce WBC 10.4 103/ul Normal 4.0-11.0 [facility] Comment on above: Performed By: #### C BC #### [facility] [address] [place] [address] ABD/PELVIS WO CONon [...] LORENZO SCHERER Date: 2022-05-16 09:21 Normal [facility] CULTURE URINEon 05-16-2022 CULTURE URINE Culture Observations : MODERATE GROWTH OF MIXED SKIN JAS. NO POTENTIAL PATHOGENS SEEN. Normal [facility] Comment on above: Performed By: #### U RTPCR #### [facility] [address] [place] [address] Dr. Karen Pierce Covid-19 PCR ([facility])on 04-26 SARS-CoV-2 (COVID-19) RNA KARI+probe Ql (Unsp spec) Not detected Normal NOT DETECTED [facility] Comment on above: Result Comment: When diagnostic [...] for this test is supported by the [place] of Health and Human Service's declaration that [...] used). Performed By: #### U A #### [facility] [address] [place] [address] Dr. Karen Pierce Creatinine [Mass/volume] in UrineOrdered By: Taz Barnes on 05-16-2022 Creatinine (U) [Mass/Vol] 68.1 mg/dL [facility] Comment on above: No reference range e stablished ER URINE PROFILEon Bilirubin Ql (U) Negative Normal NEGATIVE [facility] Comment on above: Performed By: #### U RTPCR #### [facility] [address] [place] [address] Dr. Karen Pierce Clarity (U) CLEAR Normal CLEAR [facility] Comment on above: Performed By: #### U RTPCR #### [facility] [address] [place] [address] Dr. Karen Pierce Color (U) YELLOW Normal YELLOW [facility] Comment on above: Performed By: #### U RTPCR #### [facility] [address] [place] [address] Dr. Karen Pierce ERUROLAND A micrscopic examina tion will be performed if indicated. Normal [facility] Comment on above: Performed By: #### U RTPCR #### [facility] [address] [place] [address] Dr. Karen Pierce Glucose Ql (U) Negative Normal NEGATIVE [facility] Comment on above: Performed By: #### U RTPCR #### [facility] [address] [place] [address] Dr. Karen Pierce Hemoglobin Ql (U) MODERATE Abnormal NEGATIVE [facility] Comment on above: Performed By: #### U RTPCR #### [facility] [address] [place] [address] Dr. Karen Pierce Ketones Ql (U) Negative Normal NEGATIVE [facility] Comment on above: Performed By: #### U RTPCR #### [facility] [address] [place] [address] Dr. Karen Pierce LEUKOCYTES LARGE Abnormal NEGATIVE [facility] Comment on above: Performed By: #### U RTPCR #### [facility] [address] [place] [address] Dr. Karen Pierce Nitrite Ql (U) Negative Normal NEGATIVE [facility] Comment on above: Performed By: #### U RTPCR #### [facility] [address] [place] [address] Dr. Karen Pierce pH (U) 5.5 [pH] Normal 5-9 [facility] Comment on above: Performed By: #### U RTPCR #### [facility] [address] [place] [address] Dr. Karen Pierce SPEC GRAVITY <=1.005 Abnormal 1.005-<=1. 025 [facility] Comment on above: Performed By: #### U RTPCR #### [facility] [address] [place] [address] Dr. Karen Pierce UA PROTEIN Negative Normal NEGATIVE/ TRACE [facility] Comment on above: Performed By: #### U RTPCR #### [facility] [address] [place] [address] Dr. Karen Pierce UR MICRO IND INDICATED Normal [facility] Comment on above: Performed By: #### U RTPCR #### [facility] [facility] [address] [place] [address] Dr. Karen Pierce Urobilinogen Qn (U) 0.2 {Tonio'U}/dL Normal 0.2 - 1. 0 [facility] Comment on above: Performed By: #### U RTPCR #### [facility] [address] [place] [address] Dr. Karen Pierce Globulin Calc (S) [Mass/Vol] Ordered By: Taz Barnes on 05-16-2022 Globulin (S) [Mass/Vol] 3.5 g/dL [facility] - CoagulationOrde red By: Taz Barnes on 05-16-2022 PT Coag (PPP) [Time] 14.2 s 9.0-12.9 [facility] PROF 14(COMP METB)on 022 Albumin [Mass/Vol] 3.1 g/dL Critically low 3.4-5.0 [facility] Comment on above: Performed By: #### U RTPCR #### [facility] [address] [place] [address] Dr. Karen Pierce Albumin/Globulin [Mass ratio] 0.7 {ratio} Normal [facility] Comment on above: Performed By: #### U RTPCR #### [facility] [address] [place] [address] Dr. Karen Pierce ALP [Catalytic activity/Vol] 96 U/L Normal 46-116 [facility] Comment on above: Performed By: #### U RTPCR #### [facility] [address] [place] [address] Dr. Karen Pierce ALT [Catalytic activity/Vol] 46 U/L Normal 16-63 [facility] Comment on above: Performed By: #### U RTPCR #### [facility] [address] [address] [address] Karen Pierce Anion gap [Moles/Vol] 19.7 mmol/L Normal Th e [facility] Comment on above: Performed By: #### U RTPCR #### [facility] [address] [address] [address] Karen Pierce AST [Catalytic activity/Vol] 21 U/L Normal 15-37 [facility] Comment on above: Performed By: #### U RTPCR #### [facility] [address] [address] [address] Karen Pierce Bilirubin [Mass/Vol] 0.3 mg/dL Normal 0.2-1.0 [facility] Comment on above: Performed By: #### U RTPCR #### [facility] [address] [address] [address] Karen Pierce Calcium [Mass/Vol] 8.9 mg/dL Normal 8.5-10.1 [facility] Comment on above: Performed By: #### U RTPCR #### [facility] [address] [address] [address] Karen Pierce Chloride [Moles/Vol] 101 mmol/L Normal 98-107 [facility] Comment on above: Performed By: #### U RTPCR #### [facility] [address] [address] [address] Karen Pierce CO2 [Moles/Vol] 18.3 mmol/L Critically low 21.0-32.0 [facility] Comment on above: Performed By: #### U RTPCR #### [facility] [address] [address] [address] Karen Pierce Creatinine [Mass/Vol] 8.99 mg/dL Critically high 0.70-1.30 [facility] Comment on above: Performed By: #### U RTPCR #### [facility] [address] [address] [address] Karen Pierce EGFR-AF SUDANESE 7 mL/min/1.73m2 Critically low >=60 [facility] Comment on above: Performed By: #### U RTPCR #### [facility] [address] [address] [address] Karen Pierce EGFR-NON AF SUDANESE 6 mL/min/1.73m2 Critically low >=60 [facility] Comment on above: Performed By: #### U RTPCR #### [facility] [address] [address] [address] Karen Pierce Globulin (S) [Mass/Vol] 4.7 g/dL Normal [facility] Comment on above: Performed By: #### U RTPCR #### [facility] [address] [address] [address] Karen Pierce Glucose [Mass/Vol] 110 mg/dL Critically high 74-106 [facility] Comment on above: Performed By: #### U RTPCR #### [facility] [address] [address] [address] Karen Pierce Potassium [Moles/Vol] 5.0 mmol/L Normal 3.5-5.1 [facility] Comment on above: Performed By: #### U RTPCR #### [facility] [address] [address] [address] Karen Pierce Protein [Mass/Vol] 7.8 g/dL Normal 6.4-8.2 [facility] Comment on above: Performed By: #### U RTPCR #### [facility] [address] [address] [address] Karen Pierce Sodium [Moles/Vol] 134 mmol/L Critically low 136-145 [facility] Comment on above: Performed By: #### U RTPCR #### [facility] [address] [address] [address] Karen Pierce Urea nitrogen [Mass/Vol] 129.0 mg/dL Critically high 7.0-18.0 [facility] Comment on above: Performed By: #### U RTPCR #### [facility] [address] [address] [address] Karen Pierce Urea nitrogen/Creatinine [Mass ratio] 14.3 mg/mg Normal [facility] Comment on above: Performed By: #### U RTPCR #### [facility] [address] [address] [address] Karen Pierce Platelet poor plasma interna tional normalized ratio (INR) by coagulation assay (relatOrdered By: Taz Barnes on 05-16-2022 INR Coag (PPP) [Relative time] 1.3 {INR} [facility] Comment on above: INR Therapeutic Rang [...] 05-16-2022 Protein [Mass/Vol] 6.4 g/dL 6.1-7.9 [facility] Serum or plasma alanine bal otransferase measurement without P-5'-P (enzymatic activiOrdered By: Taz Barnes on 05-16-2022 ALT No additional P-5'-P [Catalytic activity/Vol] 38 U/L 10-60 [facility] Serum or plasma albumin/glob ulin mass ratioOrdered By: Taz Barnes on 05-16-2022 Albumin/Globulin [Mass ratio] 0.8 {ratio} [facility] Serum or plasma alkaline deonte sphatase measurement (enzymatic activity/volume)Ordered By: Taz Barnes on 05-16-2022 ALP [Catalytic activity/Vol] 78 U/L 32-92 [facility] Serum or plasma aspartate am inotransferase measurement (enzymatic activity/volume)Ordered By: Taz Barnes on 05-16-2022 AST [Catalytic activity/Vol] 19 U/L 10-42 [facility] Serum or plasma total biliru bin measurement (mass/volume)Ordered By: Taz Barnes on 05-16-2022 Bilirubin [Mass/Vol] 0.4 mg/dL 0.3-1.2 [facility] URINE MICROSCOPIC ONLYon BACTERIA SMALL Abnormal NONE SEEN [facility] Comment on above: Performed By: #### U RTPCR #### [facility] [address] [place] [address] Dr. Karen Pierce Bacteria identified Cx Nom (U) INDICATED Normal [facility] Comment on above: Performed By: #### U RTPCR #### [facility] [address] [place] [address] Dr. Karen Pierce CAST NONE SEEN Normal NONE SEEN [facility] Comment on above: Performed By: #### U RTPCR #### [facility] [address] [place] [address] Dr. Karen Pierce Crystals LM Nom (Urine sed) NONE SEEN Normal NONE SEEN [facility] Comment on above: Performed By: #### U RTPCR #### [facility] [address] [place] [address] Dr. Karen Pierce Epithelial cells LM Ql (Urine sed) NONE SEEN Normal NONE SEEN /RARE [facility] Comment on above: Performed By: #### U RTPCR #### [facility] [address] [place] [address] Dr. Karen Pierce MUCOUS NONE SEEN Normal NONE SEEN [facility] Comment on above: Performed By: #### U RTPCR #### [facility] [address] [place] [address] Dr. Karen Pierce RBC 20-50 Abnormal 0-2 [facility] Comment on above: Performed By: #### U RTPCR #### [facility] [address] [place] [address] Dr. Karen Pierce WBC (U) [#/Vol] /uL Abnormal NONE SEEN [facility] Comment on above: Performed By: #### U RTPCR #### [facility] [address] [place] [address] Dr. Karen Pierce Urine sodium measurement (mo les/volume)Ordered By: Taz Barnes on 05-16-2022 Sodium (U) [Moles/Vol] 42.0 mmol/L [facility] Comment on above: No reference range [...] LORENZO SCHERER Date: 2022-05-16 09:25 Normal [facility] CBC AUTO DIFFon 05-15-2022 BASO # 0.0 103/ul Normal 0.0-0.1 [facility] Comment on above: Performed By: #### U A #### [facility] [address] [address] [address] Karen Pierce Basophils/100 WBC (Bld) 0.3 % Normal 0.2-2.0 [facility] Comment on above: Performed By: #### U A #### [facility] [address] [address] [address] Karen Pierce EO # 0.1 103/ul Normal 0.0-0.7 [facility] Comment on above: Performed By: #### U A #### [facility] [address] [address] [address] Karen Pierce Eosinophils/100 WBC (Bld) 0.7 % Critically low 0.9-7.0 [facility] Comment on above: Performed By: #### U A #### [facility] [address] [address] [address] Karen Pierce Erythrocyte distribution width (RBC) [Ratio] 14.9 % Normal 11.0-15.0 [facility] Comment on above: Performed By: #### U A #### [facility] [address] [address] [address] Karen Pierce Hematocrit (Bld) [Volume fraction] 39.8 % Critically low 42.0-54.0 [facility] Comment on above: Performed By: #### U A #### [facility] [address] [address] [address] Karen Pierce Hemoglobin (Bld) [Mass/Vol] 12.7 g/dL Critically low 14.0-18.0 [facility] Comment on above: Performed By: #### U A #### [facility] [address] [place] [address] Dr. Karen Pierce IG # 0.06 10e3/ul Critically high 0.00-0.03 [facility] Comment on above: Performed By: #### U A #### [facility] [address] [place] [address] Dr. Karen Pierce IG % 0.5 % Normal 0.0-0.5 [facility] Comment on above: Performed By: #### U A #### [facility] [address] [place] [address] Dr. Karen Pierce LYMPH # 0.9 103/ul Critically low 1.2-3.8 [facility] Comment on above: Performed By: #### U A #### [facility] [address] [place] [address] Dr. Karen Pierce Lymphocytes/100 WBC (Bld) 7.1 % Critically low 20.5-60.0 [facility] Comment on above: Performed By: #### U A #### [facility] [address] [place] [address] Dr. Karen Pierce MANUAL DIFF REQ NO Normal [facility] Comment on above: Performed By: #### U A #### [facility] [address] [place] [address] Dr. Karen Pierce MCH (RBC) [Entitic mass] 27.7 pg Normal 25.9-34.0 [facility] Comment on above: Performed By: #### U A #### [facility] [address] [place] [address] Dr. Karen Pierce MCHC (RBC) [Mass/Vol] 31.9 g/dL Normal 29.9-35.2 [facility] Comment on above: Performed By: #### U A #### [facility] [address] [address] [address] Karen Pierce MCV (RBC) [Entitic vol] 86.7 fL Normal 80.0-94.0 [facility] Comment on above: Performed By: #### U A #### [facility] [address] [address] [address] Karen Pierce MONO # 1.0 103/ul Critically high 0.3-0.8 [facility] Comment on above: Performed By: #### U A #### [facility] [address] [address] [address] Karen Pierce Monocytes/100 WBC (Bld) 8.5 % Normal 1.7-12.0 [facility] Comment on above: Performed By: #### U A #### [facility] [address] [place] [address] Dr. Karen Pierce NEUT # 9.9 103/ul Critically high 1.4-6.5 [facility] Comment on above: Performed By: #### U A #### [facility] [address] [place] [address] Dr. Karen Pierce Neutrophils/100 WBC (Bld) 82.9 % Critically high 43.0-75.0 [facility] Comment on above: Performed By: #### U A #### [facility] [address] [place] [address] Dr. Karen Pierce Platelet mean volume (Bld) [Entitic vol] 9.7 fL Normal 9.5-13.5 [facility] Comment on above: Performed By: #### U A #### [facility] [address] [place] [address] Dr. Karen Pierce PLT 206 103/ul Normal 150-450 [facility] Comment on above: Performed By: #### U A #### [facility] [address] [place] [address] Dr. Karen Pierce RBC 4.59 106/ul Critically low 4.70-6.10 [facility] Comment on above: Performed By: #### U A #### [facility] [address] [address] [address] Karen Pierce WBC 11.9 103/ul Critically high 4.0-11.0 [facility] Comment on above: Performed By: #### U A #### [facility] [address] [place] [address] Dr. Karen Pierce LIPASEon 05-15-2022 Lipase [Catalytic activity/Vol] 340.0 U/L Normal 73.0-393.0 [facility] Comment on above: Performed By: #### U A #### [facility] [address] [place] [address] Dr. Karen Pierce PROF 14(COMP METB)on 022 Albumin [Mass/Vol] 3.1 g/dL Critically low 3.4-5.0 [facility] Comment on above: Performed By: #### U A #### [facility] [address] [place] [address] Dr. Karen Pierce Albumin/Globulin [Mass ratio] 0.7 {ratio} Normal [facility] Comment on above: Performed By: #### U A #### [facility] [address] [place] [address] Dr. Karen Pierce ALP [Catalytic activity/Vol] 105 U/L Normal 46-116 [facility] Comment on above: Performed By: #### U A #### [facility] [address] [place] [address] Dr. Karen Pierce ALT [Catalytic activity/Vol] 49 U/L Normal 16-63 [facility] Comment on above: Performed By: #### U A #### [facility] [address] [place] [address] Dr. Karen Pierce Anion gap [Moles/Vol] 18.4 mmol/L Normal [facility] Comment on above: Performed By: #### U A #### [facility] [address] [place] [address] Dr. Karen Pierce AST [Catalytic activity/Vol] 20 U/L Normal 15-37 [facility] Comment on above: Performed By: #### U A #### [facility] [address] [address] [address] Karen Pierce Bilirubin [Mass/Vol] 0.3 mg/dL Normal 0.2-1.0 [facility] Comment on above: Performed By: #### U A #### [facility] [address] [address] [address] Karen Pierce Calcium [Mass/Vol] 9.1 mg/dL Normal 8.5-10.1 [facility] Comment on above: Performed By: #### U A #### [facility] [address] [address] [address] Karen Pierce Chloride [Moles/Vol] 103 mmol/L Normal 98-107 [facility] Comment on above: Performed By: #### U A #### [facility] [address] [address] [address] Karen Pierce CO2 [Moles/Vol] 20.1 mmol/L Critically low 21.0-32.0 [facility] Comment on above: Performed By: #### U A #### [facility] [address] [address] [address] Karen Pierce Creatinine [Mass/Vol] 9.58 mg/dL Critically high 0.70-1.30 [facility] Comment on above: Performed By: #### U A #### [facility] [address] [address] [address] Karen Pierce EGFR-AF SUDANESE 6 mL/min/1.73m2 Critically low >=60 [facility] Comment on above: Performed By: #### U A #### [facility] [address] [address] [address] Karen Pierce EGFR-NON AF SUDANESE 5 mL/min/1.73m2 Critically low >=60 [facility] Comment on above: Performed By: #### U A #### [facility] [address] [address] [address] Karen Pierce Globulin (S) [Mass/Vol] 4.6 g/dL Normal [facility] Comment on above: Performed By: #### U A #### [facility] [address] [address] [address] Karen Pierce Glucose [Mass/Vol] 114 mg/dL Critically high 74-106 [facility] Comment on above: Performed By: #### U A #### [facility] [address] [address] [address] Karen Pierce Potassium [Moles/Vol] 5.5 mmol/L Critically high 3.5-5.1 [facility] Comment on above: Performed By: #### U A #### [facility] [address] [place] [address] Dr. Karen Pierce Protein [Mass/Vol] 7.7 g/dL Normal 6.4-8.2 [facility] Comment on above: Performed By: #### U A #### [facility] [address] [place] [address] Dr. Karen Pierce Sodium [Moles/Vol] 136 mmol/L Normal 136-145 [facility] Comment on above: Performed By: #### U A #### [facility] [address] [place] [address] Dr. Karen Pierce Urea nitrogen [Mass/Vol] 134.0 mg/dL Critically high 7.0-18.0 [facility] Comment on above: Performed By: #### U A #### [facility] [address] [place] [address] Dr. Karen Pierce Urea nitrogen/Creatinine [Mass ratio] 14.0 mg/mg Normal [facility] Comment on above: Performed By: #### U A #### [facility] [address] [place] [address] Dr. Karen Pierce PROF CHEM 8 (BAS METB)on Anion gap [Moles/Vol] 12.6 mmol/L Normal [facility] Comment on above: Performed By: #### B MP #### [facility] [address] [place] [address] Dr. Karen Pierce Calcium [Mass/Vol] 8.7 mg/dL Normal 8.5-10.1 [facility] Comment on above: Performed By: #### B MP #### [facility] [address] [address] [address] Karen Pierce Chloride [Moles/Vol] 103 mmol/L Normal 98-107 [facility] Comment on above: Performed By: #### B MP #### [facility] [address] [place] [address] Dr. Karen Pierce CO2 [Moles/Vol] 27.3 mmol/L Normal 21.0-32.0 [facility] Comment on above: Performed By: #### B MP #### [facility] [address] [address] [address] Karen Pierce Creatinine [Mass/Vol] 1.26 mg/dL Normal 0.70-1.30 [facility] Comment on above: Performed By: #### B MP #### [facility] [address] [place] [address] Dr. Karen Pierce EGFR-AF SUDANESE >60 Normal >=60 [facility] Comment on above: Performed By: #### B MP #### [facility] [address] [place] [address] Dr. Karen Peirce EGFR-NON AF SUDANESE 55 mL/min/1.73m2 Critically low >=60 [facility] Comment on above: Performed By: #### B MP #### [facility] [address] [place] [address] Dr. Karen Pierce Glucose [Mass/Vol] 111 mg/dL Critically high 74-106 [facility] Comment on above: Performed By: #### B MP #### [facility] [address] [address] [address] Karen Pierce Potassium [Moles/Vol] 3.9 mmol/L Normal 3.5-5.1 [facility] Comment on above: Performed By: #### B MP #### [facility] [address] [place] [address] Dr. Karen Pierce Sodium [Moles/Vol] 139 mmol/L Normal 136-145 [facility] Comment on above: Performed By: #### B MP #### [facility] [address] [place] [address] Dr. Karen Pierce Urea nitrogen [Mass/Vol] 21.0 mg/dL Critically high 7.0-18.0 [facility] Comment on above: Performed By: #### B ROBYN #### [facility] [address] [place], [place] [address] Dr. Karen Pierce Urea nitrogen/Creatinine [Mass ratio] 16.7 mg/mg Normal [facility] Comment on above: Performed By: #### B ROBYN #### [facility] [address] [place], [place] [address] Dr. Karen Pierce Comprehensive Metabolic Pane [facility] 05-11-2021 Albumin [Mass/Vol] 4.5 g/dL Normal 3.6-5.1 [facility] Comment on above: Performed By: #### C KILO CARLSON #### [facility] [address] [place], [place] [id number] Albumin/Globulin [Mass ratio] 2.0 {ratio} Normal 1.0-2.5 [facility] Comment on above: Performed By: #### C ROBYN LIPElvie #### [facility] [address] [place], [place] [id number] ALP [Catalytic activity/Vol] 97 U/L Normal 40-129 [facility] Comment on above: Performed By: #### C KILO CARLSON #### [facility] [address] [place], [place] [id number] ALT [Catalytic activity/Vol] 18 U/L Normal 9-46 [facility] Comment on above: Result Comment: 04/25 Female reference range changed. Performed By: #### C ROBYN LIPElvie #### [facility] [address] [place], [place] [id number] Anion gap [Moles/Vol] 17 mmol/L Normal 12-20 [facility] Comment on above: Result Comment: Effe ctive 05/31/2019 reference range changed. Performed By: #### C KILO CARLSON #### [facility] [address] [place], [place] [id number] AST [Catalytic activity/Vol] 15 U/L Normal 10-40 [facility] Comment on above: Performed By: #### C ROBYN LIPElvie #### [facility] [address] [place], [place] [id number] Bilirubin [Mass/Vol] 0.55 mg/dL Normal 0.30-1.20 [facility] Comment on above: Performed By: #### C ROBYN LIPD #### [facility] [address] [place], [place] [id number] BUN/CREA 17 Ratio Normal 6-22 [facility] Comment on above: Performed By: #### C ROBYN LIPD #### [facility] [address] [place], [place] [id number] Calcium [Mass/Vol] 9.8 mg/dL Normal 8.6-10.2 [facility] Comment on above: Performed By: #### C ROBYN LIPElvie #### [facility] [address] [place], [place] [id number] Chloride [Moles/Vol] 106 mmol/L Normal 98-107 [facility] Comment on above: Performed By: #### C ROBYN LIPD #### [facility] [address] [place], [place] [id number] CO2 [Moles/Vol] 23 mmol/L Normal 20-31 [facility] Comment on above: Performed By: #### C ROBYN LIPElvie #### [facility] [address] [place], [place] [id number] Creatinine [Mass/Vol] 1.2 mg/dL Normal 0.7-1.4 [facility] Comment on above: Performed By: #### C ROBYN LIPD #### [facility] Laboratory [address] [place], [place] [id number] eGFRAA 73 mL/min/1.73m2 Normal >60 [facility] Comment on above: Performed By: #### C ROBYN LIPElvie #### [facility] [address] [place], [place] [id number] [id number] 60 mL/min/1.73m2 Low >60 [facility] Comment on above: Performed By: #### C ROBYN LIPD #### [facility] [address], [place] [id number] Globulin (S) [Mass/Vol] 2.3 g/dL Normal 1.9-3.7 Joey munizjoey [facility] Comment on above: Performed By: #### C ROBYN, LIPD #### [facility] [address], [place] [id number] Glucose [Mass/Vol] 105 mg/dL High 65-99 Melida chan [place] [employer] Comment on above: Result Comment: For FASTING Glucose --- ADA reference ranges: Normal 65-99 mg/dl Prediabetes 100-125 Diabetes >/= 126 Performed By: #### C ROBYN, LIPD #### [facility] [address], [place] [id number] Potassium [Moles/Vol] 4.1 mmol/L Normal 3.5-5.5 [facility] Specialist Comment on above: Performed By: #### C ROBYN, LIPD #### [facility] [address], [place] [id number] Protein [Mass/Vol] 6.8 g/dL Normal 6.1-8.1 Melida chan [place] [employer] Comment on above: Performed By: #### C ROBYN, LIPD #### [facility] [address], [place] [id number] Sodium [Moles/Vol] 142 mmol/L Normal 135-146 Melida chan [place] [employer] Comment on above: Performed By: #### C ROBYN LIPD #### [facility] [address], [place] [id number] Urea nitrogen [Mass/Vol] 20 mg/dL Normal 7-25 [facility] [employer] Comment on above: Performed By: #### C ROBYN, LIPD #### [facility] [address], [place] [id number] Lipid Panelon 05-11-2021 Cholesterol [Mass/Vol] 109 mg/dL Low 125-200 [facility] Comment on above: Result Comment: Low risk < 200mg/dL Borderline risk 201-239 mg/dl High risk > or equal to 240 Performed By: #### C MP, LIPD #### [facility] [address], [place] [id number] Cholesterol in HDL [Mass/Vol] 30 mg/dL Low >40 [facility] [employer] Comment on above: Result Comment: High Cardiovascular Risk HDL <40 mg/dL Low Cardiovascular Risk HDL > or equal to 60 mg/dl Performed By: #### C MP, LIPD #### [facility] [address], [place] [id number] Cholesterol in LDL [Mass/Vol] 54 mg/dL Normal [facility] Specialist Comment on above: Result Comment: LDL ATP III CLASSIFICATION LDL less than 100 mg/dl Optimal LDL 100-129 mg/dl Near or above optimal LDL 130-159 Borderline high LDL 160-189 High LDL greater than 189 mg/dl Very High Performed By: #### C MP, LIPD #### [facility] [address], [place] [id number] Cholesterol in VLDL [Mass/Vol] 25 mg/dL Normal [facility] [employer] Comment on above: Performed By: #### C MP, LIPD #### [facility] [address], [place] [id number] Cholesterol.total/Sonya sterol in HDL [Mass ratio] 4 {ratio} Normal [facility] Specialist Comment on above: Performed By: #### C MP, LIPD #### [facility] [address] [place], [place] [id number] Triglyceride [Mass/Vol] 126 mg/dL Normal 30-150 [facility] Specialist Comment on above: Result Comment: TRIG ATPIII CLASSIFICATIONS TRIG less than 150 mg/dl Normal TRIG 150-199 mg/dl Borderline High TRIG 200-500 mg/dl High TRIG greather than 500 mg/dl Very High Performed By: #### C MP, LIPD #### [facility] [address], [place] [id number] Vital Signs Date Time Vital Sign Value Performing Clinician Facility 11-03-2024 15:54-0400 Body height 187.96 cm Stanley Emerson MD Work Phone: [facility] 11-03-2024 15:54-0400 Body mass index (BMI) [Ratio] 25.7 kg/m2 Stanley Emerson MD Work Phone: [facility] 11-03-2024 15:54-0400 Body weight 90.77 kg Stanley Emerson MD Work Phone: [facility] 11-03-2024 15:54-0400 Diastolic blood pressure 65 mm[Hg] Stanley Emerson MD Work Phone: [facility] 11-03-2024 15:54-0400 Heart rate 66 /min Stanley Emerson MD Work Phone: [facility] 11-03-2024 15:54-0400 Respiratory rate 16 /min Stanley Emerson MD Work Phone: [facility] 11-03-2024 15:54-0400 SaO2% (BldA) [Mass fraction] 99 % Stanley Emerson MD Work Phone: [facility] 11-03-2024 15:54-0400 Systolic blood pressure 99 mm[Hg] Stanley Emerson MD Work Phone: [facility] 10-14-2024 15:01-0400 Diastolic blood pressure 68 mm[Hg] Stanley Emerson MD Work Phone: [facility] 10-14-2024 15:01-0400 Systolic blood pressure 98 mm[Hg] tSanley Emerson MD Work Phone: [facility] 10-11-2024 17:50-0400 Diastolic blood pressure 74 mm[Hg] Stanley Emerson MD Work Phone: [facility] 10-11-2024 17:50-0400 Heart rate 66 /min Stanley Emerson MD Work Phone: [facility] 10-11-2024 17:50-0400 Respiratory rate 20 /min Stanley Emerson MD Work Phone: [facility] 10-11-2024 17:50-0400 SaO2% (BldA) [Mass fraction] 95 % Stanley Emerson MD Work Phone: [facility] 10-11-2024 17:50-0400 Systolic blood pressure 118 mm[Hg] Stanley Emerson MD Work Phone: [facility] 10-11-2024 14:20-0400 Body temperature 97.6 [degF] Stanley Emerson MD Work Phone: [facility] 10-11-2024 13:50-0400 Inhaled oxygen flow rate 2 L/min Stanley Emerson MD Work Phone: [facility] 10-11-2024 12:16-0400 Body height 187.96 cm Stanley Emersno MD Work Phone: [facility] 10-11-2024 12:16-0400 Body weight 90.26 kg Stanley Emerson MD Work Phone: [facility] 10-08-2024 14:43-0400 Body height 188 cm Ruby Montana MD Work Phone: [facility] 10-08-2024 14:43-0400 Body mass index (BMI) [Ratio] 25.68 kg/m2 Ruby Montana MD Work Phone: [facility] 10-08-2024 14:43-0400 Body weight 90.72 kg Ruby Montana MD Work Phone: [facility] 10-08-2024 14:43-0400 Diastolic blood pressure 58 mm[Hg] Ruby Montana MD Work Phone: [facility] 10-08-2024 14:43-0400 Heart rate 75 /min Ruby Montana MD Work Phone: [facility] 10-08-2024 14:43-0400 Systolic blood pressure 80 mm[Hg] Ruby Montana MD Work Phone: [facility] 10-05-2024 08:35-0400 Diastolic blood pressure 67 mm[Hg] Julio Cesar Gaspar MD Work Phone: [facility] 10-05-2024 08:35-0400 Heart rate 66 /min Julio Cesar Gaspar MD Work Phone: [facility] 10-05-2024 08:35-0400 Systolic blood pressure 107 mm[Hg] Julio Cesar Gaspar MD Work Phone: [facility] 10-05-2024 07:05-0400 Body temperature 98.1 [degF] Julio Cesar Gaspar MD Work Phone: [facility] 10-05-2024 07:05-0400 Respiratory rate 18 /min Julio Cesar Gaspar MD Work Phone: [facility] 10-05-2024 07:05-0400 SaO2% (BldA) [Mass fraction] 94 % Julio Cesar Gaspar MD Work Phone: [facility] 10-02-2024 16:30-0400 Body height 188 cm Julio Cesar Gaspar MD Work Phone: [facility] 10-02-2024 16:30-0400 Body mass index (BMI) [Ratio] 22.47 kg/m2 Julio Cesar Gaspar MD Work Phone: [facility] 10-02-2024 16:30-0400 Body weight 79.38 kg Julio Cesar Gaspar MD Work Phone: [facility] 09-23-2024 09:38-0400 Body temperature 97.6 [degF] [facility] 09-23-2024 09:38-0400 Diastolic blood pressure 82 mm[Hg] [facility] 09-23-2024 09:38-0400 Heart rate 72 /min [facility] 09-23-2024 09:38-0400 Respiratory rate 16 /min [facility] 09-23-2024 09:38-0400 SaO2% (BldA) [Mass fraction] 98 % [facility] 09-23-2024 09:38-0400 Systolic blood pressure 124 mm[Hg] [facility] 09-21-2024 14:08-0400 Body height 188 cm Stanley Emerson MD Work Phone: [facility] 09-21-2024 14:08-0400 Body mass index (BMI) [Ratio] 26.06 kg/m2 Stanley Emerson MD Work Phone: [facility] 09-21-2024 14:08-0400 Body weight 92.08 kg Stanley Emerson MD Work Phone: [facility] 09-10-2024 09:40-0400 Body height 188 cm Teo Al MD Work Phone: [facility] 09-10-2024 09:40-0400 Body mass index (BMI) [Ratio] 26.32 kg/m2 Teo Al MD Work Phone: [facility] 09-10-2024 09:40-0400 Body weight 92.99 kg Teo Al MD Work Phone: [facility] 09-10-2024 09:40-0400 Diastolic blood pressure 64 mm[Hg] Teo Al MD Work Phone: [facility] 09-10-2024 09:40-0400 Heart rate 68 /min Teo Al MD Work Phone: [facility] 09-10-2024 09:40-0400 Systolic blood pressure 110 mm[Hg] Teo Al MD Work Phone: [facility] 08-11-2024 10:26-0400 Body height 187.96 cm Stanley Emerson MD Work Phone: [facility] 08-11-2024 10:26-0400 Body mass index (BMI) [Ratio] 26.1 kg/m2 Stanley Emerson MD Work Phone: [facility] 08-11-2024 10:26-0400 Body weight 92.19 kg Stanley Emerson MD Work Phone: [facility] 08-11-2024 10:26-0400 Diastolic blood pressure 75 mm[Hg] Stanley Emerson MD Work Phone: [facility] 08-11-2024 10:26-0400 Heart rate 65 /min Stanley Emerson MD Work Phone: [facility] 08-11-2024 10:26-0400 Respiratory rate 16 /min Stanley Emerson MD Work Phone: [facility] 08-11-2024 10:26-0400 SaO2% (BldA) [Mass fraction] 97 % Stanley Emerson MD Work Phone: [facility] 08-11-2024 10:26-0400 Systolic blood pressure 115 mm[Hg] Stanley Emerson MD Work Phone: [facility] 07-29-2024 11:13-0500 Body height 188 cm Teo Al MD Work Phone: [facility] 07-29-2024 11:13-0500 Body mass index (BMI) [Ratio] 26.19 kg/m2 Teo Al MD Work Phone: [facility] 07-29-2024 11:13-0500 Body weight 92.53 kg Teo Al MD Work Phone: [facility] 07-29-2024 11:13-0500 Diastolic blood pressure 60 mm[Hg] Teo Al MD Work Phone: [facility] 07-29-2024 11:13-0500 Heart rate 67 /min Teo Al MD Work Phone: [facility] 07-29-2024 11:13-0500 Systolic blood pressure 98 mm[Hg] Teo Al MD Work Phone: [facility] 07-15-2024 10:31-0500 Blood Pressure Location HEATHER OMALLEY [facility] 07-15-2024 10:31-0500 Diastolic blood pressure 60 mm[Hg] HEATHER OMALLEY [facility] 07-15-2024 10:31-0500 Heart rate 68 /min HEATHER OMALLEY [facility] 07-15-2024 10:31-0500 Respiratory rate 18 /min HEATHER OMALLEY [facility] 07-15-2024 10:31-0500 Systolic blood pressure 99 mm[Hg] HEATHER OMALLEY [facility] 05-21-2024 09:47-0500 Body height 188 cm Teo Al MD Work Phone: [facility] 05-21-2024 09:47-0500 Body mass index (BMI) [Ratio] 26.58 kg/m2 Teo Al MD Work Phone: [facility] 05-21-2024 09:47-0500 Body weight 93.89 kg Teo Al MD Work Phone: [facility] 05-21-2024 09:47-0500 Diastolic blood pressure 70 mm[Hg] Teo Al MD Work Phone: [facility] 05-21-2024 09:47-0500 Heart rate 80 /min Teo Al MD Work Phone: [facility] 05-21-2024 09:47-0500 Systolic blood pressure 106 mm[Hg] Teo Al MD Work Phone: [facility] 05-13-2024 14:38-0500 Body height 188 cm Stanley Emerson MD Work Phone: [facility] 05-13-2024 14:38-0500 Body mass index (BMI) [Ratio] 26.06 kg/m2 Stanley Emerson MD Work Phone: [facility] 05-13-2024 14:38-0500 Body weight 92.08 kg Stanley Emerson MD Work Phone: [facility] 05-13-2024 14:38-0500 Diastolic blood pressure 74 mm[Hg] Stanley Emerson MD Work Phone: [facility] 05-13-2024 14:38-0500 Heart rate 77 /min Stanley Emerson MD Work Phone: [facility] 05-13-2024 14:38-0500 SaO2% (BldA) [Mass fraction] 97 % Stanley Emerson MD Work Phone: [facility] 05-13-2024 14:38-0500 Systolic blood pressure 122 mm[Hg] Stanley Emerson MD Work Phone: [facility] 04-06-2024 11:14-0500 Blood Pressure Location Katia JACOBS [facility] 04-06-2024 11:14-0500 Diastolic blood pressure 69 mm[Hg] Katia JACOBS [facility] 04-06-2024 11:14-0500 Heart rate 79 /min Katia JACOBS [facility] 04-06-2024 11:14-0500 Systolic blood pressure 107 mm[Hg] Katia JACOBS [facility] 03-18-2024 11:18-0400 Body height 188 cm Stanley Emerson MD Work Phone: [facility] 03-18-2024 11:18-0400 Body mass index (BMI) [Ratio] 28.63 kg/m2 Stanley Emerson MD Work Phone: [facility] 03-18-2024 11:18-0400 Body weight 101.15 kg Stanley Emerson MD Work Phone: [facility] 03-18-2024 11:18-0400 Heart rate 82 /min Stanley Emerson MD Work Phone: [facility] 03-18-2024 11:18-0400 SaO2% (BldA) [Mass fraction] 97 % Stanley Emerson MD Work Phone: [facility] 03-08-2024 12:45-0400 Body height 187.96 cm MD Stanley Emerson Work Phone: [facility] 03-08-2024 12:45-0400 Body mass index (BMI) [Ratio] 25.6 kg/m2 MD Stanley Emerson Work Phone: [facility] 03-08-2024 12:45-0400 Body temperature 98.3 [degF] MD Stanley Emerson Work Phone: [facility] 03-08-2024 12:45-0400 Body weight 90.43 kg MD Stanley Emerson Work Phone: [facility] 03-08-2024 12:45-0400 Diastolic blood pressure 69 mm[Hg] MD Stanley Emerson Work Phone: [facility] 03-08-2024 12:45-0400 Heart rate 92 /min MD Stanley Emerson Work Phone: [facility] 03-08-2024 12:45-0400 SaO2% (BldA) [Mass fraction] 99 % MD Stanley Emerson Work Phone: [facility] 03-08-2024 12:45-0400 Systolic blood pressure 103 mm[Hg] MD Stanley Emerson Work Phone: [facility] 02-24-2024 15:190400 Body height 188 cm [facility] 02-24-2024 15:19-0400 Body mass index (BMI) [Ratio] 26.32 kg/m2 [facility] 02-24-2024 15:19-040 Body weight 92.99 kg [facility] 02-24-2024 15:19-0400 Diastolic blood pressure 62 mm[Hg] [facility] 02-24-2024 15:19-0400 Heart rate 85 /min [facility] 02-24-2024 15:19-0400 Systolic blood pressure 100 mm[Hg] [facility] 02-17-2024 11:52-0400 Body height 188 cm Stanley Emerson MD Work Phone: [facility] 02-17-2024 11:52-0400 Body mass index (BMI) [Ratio] 28.63 kg/m2 Stanley Emerson MD Work Phone: [facility] 02-17-2024 11:52-0400 Body weight 101.15 kg Stanley Emerson MD Work Phone: [facility] 02-10-2024 09:13-0400 Body height 188 cm Teo Al MD Work Phone: [facility] 02-10-2024 09:13-0400 Body mass index (BMI) [Ratio] 26.32 kg/m2 Teo Al MD Work Phone: [facility] 02-10-2024 09:13-0400 Body weight 92.99 kg Teo Al MD Work Phone: [facility] 02-10-2024 09:13-0400 Diastolic blood pressure 68 mm[Hg] Teo Al MD Work Phone: [facility] 02-10-2024 09:13-0400 Heart rate 79 /min Teo Al MD Work Phone: [facility] 02-10-2024 09:13-0400 Systolic blood pressure 102 mm[Hg] Teo Al MD Work Phone: [facility] 02-04-2024 11:48-0400 Body height 187.96 cm MD Stanley Emerson Work Phone: [facility] 02-04-2024 11:48-0400 Body mass index (BMI) [Ratio] 28.2 kg/m2 MD Stanley Emerson Work Phone: [facility] 02-04-2024 11:48-0400 Body temperature 96.1 [degF] MD Stanley Emerson Work Phone: [facility] 02-04-2024 11:48-0400 Body weight 99.79 kg MD Stanley Emerson Work Phone: [facility] 02-04-2024 11:48-0400 Diastolic blood pressure 65 mm[Hg] MD Stanley Emerson Work Phone: [facility] 02-04-2024 11:48-0400 Heart rate 76 /min MD Stanley Emerson Work Phone: [facility] 02-04-2024 11:48-0400 Respiratory rate 18 /min MD Stanley Emerson Work Phone: [facility] 02-04-2024 11:48-0400 SaO2% (BldA) [Mass fraction] 96 % MD Stanley Emerson Work Phone: [facility] 02-04-2024 11:48-0400 Systolic blood pressure 99 mm[Hg] MD Stanley Emerson Work Phone: [facility] 01-23-2024 15:00-0400 Body height 187.96 cm MD Stanley Emerson Work Phone: [facility] 01-23-2024 11:19-0400 Diastolic blood pressure 62 mm[Hg] MD Stanley Emerson Work Phone: [facility] 01-23-2024 11:19-0400 Heart rate 64 /min MD Stanley Emerson Work Phone: [facility] 01-23-2024 11:19-0400 Systolic blood pressure 90 mm[Hg] MD Stanley Emerson Work Phone: [facility] 01-23-2024 11:13-0400 Respiratory rate 20 /min MD Stanley Emerson Work Phone: [facility] 01-23-2024 11:13-0400 SaO2% (BldA) [Mass fraction] 96 % MD Stanley Emerson Work Phone: [facility] 01-23-2024 04:44-0400 Body weight 98.6 kg MD Stanley Emerson Work Phone: [facility] 01-22-2024 23:41-0400 Body temperature 98.2 [degF] MD Stanley Emerson Work Phone: [facility] 01-19-2024 10:00-0400 Inhaled oxygen flow rate 2 L/min MD Stanley Emerson Work Phone: [facility] 01-14-2024 09:35-0400 Diastolic blood pressure 67 mm[Hg] MD Stanley Emerson Work Phone: [facility] 01-14-2024 09:35-0400 Heart rate 65 /min MD Stanley Emerson Work Phone: [facility] 01-14-2024 09:35-0400 Respiratory rate 16 /min MD Stanley Emerson Work Phone: [facility] 01-14-2024 09:35-0400 SaO2% (BldA) [Mass fraction] 97 % MD Stanley Emerson Work Phone: [facility] 01-14-2024 09:35-0400 Systolic blood pressure 109 mm[Hg] MD Stanley Emerson Work Phone: [facility] 01-14-2024 07:41-0400 Body height 187.96 cm MD Stanley Emerson Work Phone: [facility] 01-14-2024 07:41-0400 Body weight 104.32 kg MD Stanley Emerson Work Phone: [facility] 10-22-2023 10:57-0400 Body height 187.96 cm MD Stanley Emerson Work Phone: [facility] 10-22-2023 10:57-0400 Body mass index (BMI) [Ratio] 28 kg/m2 MD Stanley Emerson Work Phone: [facility] 10-22-2023 10:57-0400 Body temperature 96.8 [degF] MD Stanley Emerson Work Phone: [facility] 10-22-2023 10:57-0400 Body weight 99.1 kg MD Stanley Emerson Work Phone: [facility] 10-22-2023 10:57-0400 Diastolic blood pressure 76 mm[Hg] MD Stanley Emerson Work Phone: [facility] 10-22-2023 10:57-0400 Heart rate 71 /min MD Stanley Emerson Work Phone: [facility] 10-22-2023 10:57-0400 Respiratory rate 18 /min MD Stanley Emerson Work Phone: [facility] 10-22-2023 10:57-0400 SaO2% (BldA) [Mass fraction] 98 % MD Stanley Emerson Work Phone: [facility] 10-22-2023 10:57-0400 Systolic blood pressure 110 mm[Hg] MD Stanley Emerson Work Phone: [facility] 09-18-2023 10:47-0400 Body height 187.96 cm MD Stanley Emerson Work Phone: [facility] 09-18-2023 10:47-0400 Body mass index (BMI) [Ratio] 28.6 kg/m2 MD Stanley Emerson Work Phone: [facility] 09-18-2023 10:47-0400 Body temperature 97.8 [degF] MD Stanley Emerson Work Phone: [facility] 09-18-2023 10:47-0400 Body weight 101.15 kg MD Stanley Emerson Work Phone: [facility] 09-18-2023 10:47-0400 Diastolic blood pressure 68 mm[Hg] MD Stanley Emerson Work Phone: [facility] 09-18-2023 10:47-0400 Heart rate 64 /min MD Stanley Emerson Work Phone: [facility] 09-18-2023 10:47-0400 Respiratory rate 16 /min MD Stanley Emerson Work Phone: [facility] 09-18-2023 10:47-0400 SaO2% (BldA) [Mass fraction] 98 % MD Stanley Emerson Work Phone: [facility] 09-18-2023 10:47-0400 Systolic blood pressure 118 mm[Hg] MD Stanley Emerson Work Phone: [facility] 06-30-2023 14:17-0500 Blood Pressure Location Katia JACOBS [facility] 06-30-2023 14:17-0500 Diastolic blood pressure 77 mm[Hg] Katia JACOBS [facility] 06-30-2023 14:17-0500 Heart rate 70 /min Katiadesi JACOBS [facility] 06-30-2023 14:17-0500 Respiratory rate 16 /min Katia JACOBS [facility] 06-30-2023 14:17-0500 Systolic blood pressure 109 mm[Hg] Katia JACOBS [facility] 04-15-2023 14:00-0500 Body height 187.96 cm Preston Griffin Other [facility] Other 04-15-2023 14:00-0500 Body mass index (BMI) [Ratio] 28.73 kg/m2 Preston Danielss Other [facility] Other 04-15-2023 14:00-0500 Body temperature 96.8 [degF] Preston Danielss Other [facility] Other 04-15-2023 14:00-0500 Body weight 101.52 kg Preston Danielss Other [facility] Other 04-15-2023 14:00-0500 Diastolic blood pressure 100 mm[Hg] Preston Danielss Other [facility] Other 04-15-2023 14:00-0500 Respiratory rate 18 /min Preston Danielss Other [facility] Other 04-15-2023 14:00-0500 SaO2% (BldA) [Mass fraction] 96 % Preston Danielss Other [facility] Other 04-15-2023 14:00-0500 Systolic blood pressure 161 mm[Hg] Preston Danielss Other [facility] Other 03-11-2023 13:38-0400 Blood Pressure Location Katia JACOBS [facility] 03-11-2023 13:38-0400 Diastolic blood pressure 100 mm[Hg] Katia JACOBS [facility] 03-11-2023 13:38-0400 Heart rate 72 /min Katia JACOBS [facility] 03-11-2023 13:38-0400 Systolic blood pressure 150 mm[Hg] Katia JACOBS [facility] 01-22-2023 09:57-0400 Body height 187.96 cm Stanley Emerson Work Phone: [facility] 250 DO Work Phone: 01-22-2023 09:57-0400 Body mass index (BMI) [Ratio] 27.35 kg/m2 Stanley Emerson Work Phone: [facility] 250 DO Work Phone: 01-22-2023 09:57-0400 Body surface area Derived from formula 2.23 m2 Stanley Emerson Work Phone: [facility] 250 DO Work Phone: 01-22-2023 09:57-0400 Body weight 96.62 kg Stanley Emerson Work Phone: [facility] 250 DO Work Phone: 01-22-2023 09:57-0400 Diastolic blood pressure 88 mm[Hg] Stanley Emerson Work Phone: [facility] 250 DO Work Phone: 01-22-2023 09:57-0400 Heart rate 72 /min Stanley Emerson Work Phone: [facility] 250 DO Work Phone: 01-22-2023 09:57-0400 Systolic blood pressure 126 mm[Hg] Stanley Emerson Work Phone: [facility] 250 DO Work Phone: 08-21-2022 14:30-0400 Body height 187.96 cm Carlene Kasper Other [facility] Other 08-21-2022 14:30-0400 Body mass index (BMI) [Ratio] 26.32 kg/m2 Cralene Kasper Other [facility] Other 08-21-2022 14:30-0400 Body temperature 97.8 [degF] Carlene Kasper Other [facility] Other 08-21-2022 14:30-0400 Body weight 92.99 kg Carlene Kasper Other [facility] Other 08-21-2022 14:30-0400 Diastolic blood pressure 82 mm[Hg] Carlene Kasper Other [facility] Other 08-21-2022 14:30-0400 SaO2% (BldA) [Mass fraction] 96 % Carlene Kasper Other [facility] Other 08-21-2022 14:30-0400 Systolic blood pressure 124 mm[Hg] Carlene Mezajensenbritton Other [facility] Other 07-31-2022 07:25-0500 Blood Pressure Location Katia JACOBS [facility] 07-31-2022 07:25-0500 Diastolic blood pressure 89 mm[Hg] Katia JACOBS [facility] 07-31-2022 07:25-0500 Heart rate 70 /min Katia JACOBS [facility] 07-31-2022 07:25-0500 Respiratory rate 16 /min Katia JACOBS [facility] 07-31-2022 07:25-0500 Systolic blood pressure 130 mm[Hg] Katia JACOBS [facility] 07-25-2022 09:45-0500 Body height 187.96 cm Margarito Valentine Other [facility] Other 07-25-2022 09:45-0500 Body mass index (BMI) [Ratio] 26.32 kg/m2 Margarito Valentine Other [facility] Other 07-25-2022 09:45-0500 Body temperature 96.2 [degF] Margarito Valentine Other [facility] Other 07-25-2022 09:45-0500 Body weight 92.99 kg Margarito Valentine Other [facility] Other 07-25-2022 09:45-0500 Diastolic blood pressure 60 mm[Hg] Margarito Valentine Other [facility] Other 07-25-2022 09:45-0500 SaO2% (BldA) [Mass fraction] 97 % Margarito Valentine Other [facility] Other 07-25-2022 09:45-0500 Systolic blood pressure 110 mm[Hg] Margarito Valentine Other [facility] Other 07-03-2022 07:34-0500 Body temperature 98.9 [degF] MD Stanley Emerson Work Phone: [facility] 07-03-2022 07:34-0500 Diastolic blood pressure 91 mm[Hg] MD Stanley Emerson Work Phone: [facility] 07-03-2022 07:34-0500 Heart rate 87 /min MD Stanley Emerson Work Phone: [facility] 07-03-2022 07:34-0500 Respiratory rate 18 /min MD Stanley Emerson Work Phone: [facility] 07-03-2022 07:34-0500 SaO2% (BldA) [Mass fraction] 94 % MD Stanley Emerson Work Phone: [facility] 07-03-2022 07:34-0500 Systolic blood pressure 159 mm[Hg] MD Stanley Emerson Work Phone: [facility] 07-03-2022 05:46-0500 Body weight 94 kg MD Stanley Emerson Work Phone: [facility] 07-02-2022 16:27-0500 Inhaled oxygen flow rate 6 L/min MD Stanley Emerson Work Phone: [facility] 07-02-2022 10:06-0500 Body height 185.42 cm MD Stanley Emerson Work Phone: [facility] 07-02-2022 10:06-0500 Body mass index (BMI) [Ratio] 27.3 kg/m2 MD Stanley Emerson Work Phone: [facility] 06-19-2022 10:00-0500 Body height 187.96 cm Margarito Valentine Other [facility] Other 06-19-2022 10:00-0500 Body mass index (BMI) [Ratio] 26.32 kg/m2 Margarito Valentine Other [facility] Other 06-19-2022 10:00-0500 Body temperature 97.8 [degF] Margarito Valentine Other [facility] Other 06-19-2022 10:00-0500 Body weight 92.99 kg Margarito Valentine Other [facility] Other 06-19-2022 10:00-0500 Diastolic blood pressure 68 mm[Hg] Margarito Valentine Other [facility] Other 06-19-2022 10:00-0500 SaO2% (BldA) [Mass fraction] 95 % Margarito Valentine Other [facility] Other 06-19-2022 10:00-0500 Systolic blood pressure 108 mm[Hg] Margarito Valentine Other [facility] Other 06-12-2022 13:07-0500 Body height 187.96 cm MD Stanley Emerson Work Phone: [facility] 06-12-2022 13:07-0500 Body weight 93.44 kg MD Stanley Emerson Work Phone: [facility] 06-06-2022 12:00-0500 Body height 187.96 cm Margarito Valentine Other [facility] Other 06-06-2022 12:00-0500 Body mass index (BMI) [Ratio] 26.32 kg/m2 Margarito Valentine Other [facility] Other 06-06-2022 12:00-0500 Body temperature 97.2 [degF] Margarito Valentine Other [facility] Other 06-06-2022 12:00-0500 Body weight 92.99 kg Margarito Valentine Other [facility] Other 06-06-2022 12:00-0500 Diastolic blood pressure 70 mm[Hg] Margarito Valentine Other [facility] Other 06-06-2022 12:00-0500 SaO2% (BldA) [Mass fraction] 98 % Margarito Topetesarina Other [facility] Other 06-06-2022 12:00-0500 Systolic blood pressure 108 mm[Hg] Margarito Topetesarina Other [facility] Other 06-04-2022 12:00-0500 Body height 187.96 cm Preston [employer] Other [facility] Other 06-04-2022 12:00-0500 Body mass index (BMI) [Ratio] 26.42 kg/m2 [employer] Other [facility] Other 06-04-2022 12:00-0500 Body temperature 96.6 [degF] Preston [employer] Other [facility] Other 06-04-2022 12:00-0500 Body weight 93.35 kg Preston [employer] Other [facility] Other 06-04-2022 12:00-0500 Diastolic blood pressure 70 mm[Hg] Azcelestino [employer] Other [facility] Other 06-04-2022 12:00-0500 Respiratory rate 20 /min Preston [employer] Other [facility] Other 06-04-2022 12:00-0500 SaO2% (BldA) [Mass fraction] 98 % Preston Griffin Other [facility] [employer] Other 06-04-2022 12:00-0500 Systolic blood pressure 100 mm[Hg] Preston Griffin Other [facility] [employer] Other 06-03-2022 15:38-0500 Body height 187.96 cm Stanley Singhchery Work Phone: [facility] 250 DO Work Phone: 06-03-2022 15:38-0500 Body mass index (BMI) [Ratio] 26.45 kg/m2 Stanley Emerson Work Phone: [facility] 250 DO Work Phone: 06-03-2022 15:38-0500 Body surface area Derived from formula 2.2 m2 Stanley Emerson Work Phone: [facility] 250 DO Work Phone: 06-03-2022 15:38-0500 Body weight 93.44 kg Stanley Emerson Work Phone: [facility] 250 DO Work Phone: 06-03-2022 15:38-0500 Diastolic blood pressure 78 mm[Hg] Stanley Emerson Work Phone: [facility] 250 DO Work Phone: 06-03-2022 15:38-0500 Heart rate 71 /min Stanley Emerson Work Phone: [facility] 250 DO Work Phone: 06-03-2022 15:38-0500 Systolic blood pressure 106 mm[Hg] Stanley Emerson Work Phone: [facility] 250 DO Work Phone: 05-22-2022 11:53-0500 Body temperature 98.8 [degF] MD Stanley Emerson Work Phone: [facility] 05-22-2022 11:53-0500 Diastolic blood pressure 72 mm[Hg] MD Stanley Emerson Work Phone: [facility] 05-22-2022 11:53-0500 Heart rate 78 /min MD Stanley Emerson Work Phone: [facility] 05-22-2022 11:53-0500 Respiratory rate 16 /min MD Stanley Emerson Work Phone: [facility] 05-22-2022 11:53-0500 SaO2% (BldA) [Mass fraction] 97 % MD Stanley Emerson Work Phone: [facility] 05-22-2022 11:53-0500 Systolic blood pressure 108 mm[Hg] MD Stanley Emerson Work Phone: [facility] 05-22-2022 06:02-0500 Body weight 88.8 kg MD Stanley Emerson Work Phone: [facility] 05-21-2022 11:48-0500 63 1 Stanley Emerson Work Phone: [facility] 250 DO Work Phone: Comment on above: [id number] 05-17-2022 12:08-0500 Body height 187.96 cm MD Stanley Emerson Work Phone: [facility] Encounters Encounter Date Encounter Type Care Provider Facility Start: 02-10-2025 ambulatory Blanca X Orfidel Block y:[facility] Start: 01-14-2025 ambulatory Eboni Tenorioa Facility:[facility] Start: 01-12-2025 End: 01-12-2025 ambulatory Eboni Monica Facility:[facility] Start: 01-12-2025 End: 01-12-2025 Patient encounter procedure Eboni Anderson [facility] Start: 12-14-2024 End: 12-14-2024 ambulatory Eboni Anderson Facility: [place] Start: 12-14-2024 End: 12-14-2024 Patient encounter procedure Eboni Anderson [facility] Start: 11-16-2024 End: 11-16-2024 ambulatory Katia JACOBS Facility:[facility] Start: 11-16-2024 End: 11-16-2024 Lab Drop off Katia Isabel ARLENE [facility] Start: 11-16-2024 End: 11-16-2024 ambulatory Katia JACOBS Facility:[facility] Start: 11-16-2024 End: 11-16-2024 Patient encounter procedure Katia R JACOBS [facility] Start: 11-09-2024 End: 11-09-2024 Yue Emerson MD Work Phone: [facility] Start: 11-09-2024 End: 11-09-2024 Bamemily Emerson MD Work Phone: [facility] Start: 11-09-2024 End: 11-09-2024 Office outpatient visit 25 minutes Stanley Emerson MD Work Phone: [facility] Comment on above: Venous insufficiency of both lower extremities (Primary Dx); Venous stasis dermatitis of right lower extremity; 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 disturbance, psychotic disturbance, mood disturbance, or anxiety (HCC) Start: 11-09-2024 End: 11-09-2024 ambulatory STANLEY EMERSON Not Available Start: 11-03-2024 End: 11-03-2024 ambulatory Stanley Emerson MD Work Phone: [facility] Work Phone: Start: 11-03-2024 End: 11-03-2024 Patient encounter procedure Stanley Emerson MD Work Phone: [facility] Work Phone: Start: 11-02-2024 End: 11-02-2024 ambulatory PA-C HEATHER OMALLEY Facility:[facility] Start: 11-02-2024 End: 11-02-2024 Patient encounter procedure HEATHER OMALLEY [facility] Start: 10-27-2024 End: 10-27-2024 Clinisync Result Encounter Generic External Data Provider [facility] External Department Unsolicited Start: 10-27-2024 End: 10-27-2024 Clinisync Result Encounter Generic External Data Provider [facility] External Department Unsolicited Start: 10-27-2024 Non-patient / Non-visit Stanley Emerson MD Work Phone: [facility] Work Phone: Start: 10-14-2024 End: 10-14-2024 Transitional care manage srvc 14 day discharge Stanley Emerson MD Work Phone: [facility] Comment on above: Pneumonia of left lo wer lobe due to infectious organism; Encounter for examination following treatment at hospital; Lower extremity edema; Delirium due to another medical condition Start: 10-14-2024 End: 10-14-2024 ambulatory STANLEY EMERSON Not Available Start: 10-13-2024 End: 10-13-2024 Orders Only Stanley Emerson MD Work Phone: [facility] Comment on above: Peripheral vascular disease (CMS/HCC) (Primary Dx); Presence of stent in artery Start: 10-11-2024 Non-patient / Non-visit Stanley Emerson MD Work Phone: [facility] V[facility] S[facility] Work Phone: Start: 10-11-2024 ambulatory RUBY MONTANA [facility] Start: 10-11-2024 Encounter for preprocedural cardiovascular examination RUBY MONTANA [facility] Start: 10-11-2024 End: 10-11-2024 Admission to same day surgery center Stanley Emerson MD Work Phone: [facility] Work Phone: Start: 10-11-2024 End: 10-11-2024 ambulatory Stanley Emerson Facility:[facility] Start: 10-08-2024 End: 10-08-2024 Bradyarrhythmia Ruby Montana MD Work Phone: [facility] Work Phone: Start: 10-08-2024 End: 10-08-2024 Office consultation new/estab patient 80 min Ruby Montana MD Work Phone: [facility] Comment on above: Cardiomyopathy, isch emic (Primary Dx); Encounter to establish care with [...] cardiovascular examination; Pre-operative cardiovascular examination, supraventricular arrhythmia Start: 10-08-2024 End: 10-08-2024 Patient encounter status Ruby Montana MD Work Phone: [facility] Work Phone: Start: 10-08-2024 End: 10-08-2024 Supraventricular arrhythmia Ruby Montana MD Work Phone: [facility] Work Phone: Start: 10-08-2024 End: 10-08-2024 Ventricular arrhythmia Ruby Montana MD Work Phone: [facility] Work Phone: Start: 10-08-2024 End: 10-08-2024 ambulatory [address] [place] [facility] Start: 10-08-2024 End: 10-08-2024 Encounter for preprocedural cardiovascular examination RUBY MON[place]NA [facility] Start: 10-05-2024 End: 10-05-2024 ambulatory Katia JACOBS Facility:[facility] Start: 10-05-2024 End: 10-05-2024 Patient encounter procedure Katia JACOBS [facility] Start: 10-04-2024 End: 10-06-2024 Evaluation and management of inpatient Julio Cesar Gaspar MD Work Phone: [facility] Comment on above: Arrived Start: 10-02-2024 End: 10-06-2024 Clinisync Result Encounter Generic External Data Provider [facility] External Department Unsolicited Start: 10-02-2024 End: 10-06-2024 Clinisync Result Encounter Generic External Data Provider [facility] External Department Unsolicited Start: 10-02-2024 End: 10-05-2024 Evaluation and management of inpatient Julio Cesar Gaspar MD Work Phone: [facility] Med Surg Comment on above: Lower extremity padmini a (Primary Dx); Delirium due to another medical condition; Cognitive and behavioral changes Start: 10-01-2024 End: 10-01-2024 ambulatory Robe Hansen [facility] Work Phone: Start: 10-01-2024 End: 10-01-2024 Departed Referred Talya Bo MD Work Phone: [facility] Start: 10-01-2024 ambulatory Stanley Kurtz ty:[facility] Start: 10-01-2024 End: 10-01-2024 Clinisync Result Encounter Generic External Data Provider [facility] External Department Unsolicited Start: 10-01-2024 End: 10-01-2024 Clinisync Result Encounter Generic External Data Provider [facility] External Department Unsolicited Start: 09-28-2024 End: 09-28-2024 ambulatory Talya Bo [facility] Work Phone: Start: 09-28-2024 End: 09-28-2024 Departed Referred Talya Bo MD Work Phone: [facility] Start: 09-28-2024 End: 09-29-2024 Clinisync Result Encounter Generic External Data Provider [facility] External Department Unsolicited Start: 09-28-2024 End: 09-29-2024 Clinisync Result Encounter Generic External Data Provider [facility] External Department Unsolicited Start: 09-23-2024 End: 09-23-2024 Patient encounter procedure [facility] Work Phone: Start: 09-23-2024 End: 09-23-2024 ambulatory Stanley Emerson [facility] Work Phone: Start: 09-21-2024 End: 09-21-2024 Office outpatient visit 25 minutes Stanley Emerson MD Work Phone: [facility] Comment on above: Mild late onset Alzh eimer's dementia without behavioral disturbance, psychotic disturbance, mood disturbance, or anxiety (CMS/HCC); Hallucinations; Need for prophylaxis against urinary tract infection; Indwelling urinary catheter present; Former smoker; Polypharmacy; Overweight Start: 09-21-2024 End: 09-21-2024 Bamboo flowsheet Stanley Emerson MD Work Phone: [facility] Start: 09-21-2024 End: 09-21-2024 Christineo flowsheet Stanley Emerson MD Work Phone: [facility] Start: 09-21-2024 End: 09-21-2024 ambulatory STANLEY EMERSON Not Available Start: 09-10-2024 End: 09-10-2024 Office outpatient visit 25 minutes Teo Al MD Work Phone: [facility] Comment on above: Cardiomyopathy, isch emic; Coronary artery disease involving [place] coronary artery of [place] heart without angina pectoris; S/P PTCA (percutaneous transluminal coronary angioplasty); ST elevation myocardial infarction (STEMI), unspecified artery (Multi); Paroxysmal atrial fibrillation (Multi); High risk medication use; Essential hypertension; Abdominal aortic aneurysm (AAA) greater than 5.5 cm in diameter in male; Dyslipidemia; Stage 3a chronic kidney disease (Multi); Former smoker; BMI 26.0-26.9,adult Start: 09-10-2024 End: 09-10-2024 ambulatory TEO Mendez [facility] Ambulatory Start: 09-09-2024 End: 09-09-2024 ambulatory Fabi Gomez Facility:[facility] Start: 09-02-2024 End: 09-02-2024 Clinisync Result Encounter Generic External Data Provider [facility] External Department Unsolicited Start: 09-02-2024 End: 09-02-2024 Clinisync Result Encounter Generic External Data Provider [facility] External Department Unsolicited Start: 08-23-2024 End: 09-05-2024 Clinisync Result Encounter Generic External Data Provider [facility] External Department Unsolicited Start: 08-23-2024 End: 09-05-2024 Clinisync Result Encounter Generic External Data Provider [facility] External Department Unsolicited Start: 08-12-2024 End: 08-12-2024 ambulatory MOMO OMALLEY Facility:[facility] Start: 08-11-2024 End: 08-11-2024 ambulatory Stanley Emerson MD Work Phone: [facility] Work Phone: Start: 08-11-2024 End: 08-11-2024 Patient encounter procedure Stanley Emerson MD Work Phone: [facility] Work Phone: Start: 08-06-2024 End: 08-06-2024 Subsequent hospital visit by physician Lisa Chun Echo/Vasc Room 2 [facility] Comment on above: ST elevation myocard ial infarction (STEMI), unspecified artery (Multi); Cardiomyopathy, ischemic; Coronary artery disease involving [place] coronary artery of [place] heart without angina pectoris; S/P PTCA (percutaneous transluminal coronary angioplasty) Start: 08-06-2024 End: 08-06-2024 ambulatory [facility] Start: 08-02-2024 Non-patient / Non-visit Stanley Emerson MD [facility] Phone[facility] Work Phone: Start: 07-29-2024 End: 07-29-2024 ambulatory Katia JACOBS Facility:[facility] Start: 07-29-2024 End: 07-29-2024 ambulatory Katia JACOBS Facility: [place] Start: 07-29-2024 End: 07-29-2024 Office outpatient visit 40 minutes Teo Al MD Work Phone: [facility] Comment on above: Cardiomyopathy, isch emic (Primary Dx); Coronary artery disease involving [place] coronary artery of [place] heart without angina pectoris; Paroxysmal atrial fibrillation (Multi); High risk medication use; S/P PTCA (percutaneous transluminal coronary angioplasty); ST elevation myocardial infarction (STEMI), unspecified artery (Multi); Infrarenal abdominal aortic aneurysm (AAA) without rupture ([facility]-HCC); Essential hypertension; Dyslipidemia; Stage 3a chronic kidney disease (Multi); Transient cerebral ischemia, unspecified type; Hematuria, unspecified type; Hyperthyroidism; BMI 26.0-26.9,adult; Former smoker Start: 07-29-2024 End: 07-29-2024 ambulatory [facility] Ambulatory Start: 07-23-2024 End: 07-25-2024 Clinisync Result Encounter Generic External Data Provider [facility] External Department Unsolicited Start: 07-23-2024 End: 07-25-2024 Clinisync Result Encounter Generic External Data Provider [facility] External Department Unsolicited Start: 07-15-2024 End: 07-15-2024 ambulatory MOMO OMALLEY Facility:[facility] Start: 07-15-2024 End: 07-15-2024 Patient encounter procedure HEATHER OMALLEY [facility] Start: 07-13-2024 End: 07-13-2024 Clinisync Result Encounter Generic External Data Provider [facility] External Department Unsolicited Start: 07-13-2024 End: 07-13-2024 Clinisync Result Encounter Generic External Data Provider [facility] External Department Unsolicited Start: 06-29-2024 End: 06-29-2024 Clinisync Result Encounter Shaikh Hua CASILLAS Work Phone: [facility] External [facility] Unsolicited Start: 06-29-2024 End: 06-29-2024 Clinisync Result Encounter Shaikh Hua CASILLAS Work Phone: [facility] External Department Unsolicited Start: 06-25-2024 End: 06-25-2024 Clinisync Result Encounter Generic External Data Provider [facility] External Department Unsolicited Start: 06-25-2024 End: 06-25-2024 Clinisync Result Encounter Generic External Data Provider [facility] External Department Unsolicited Start: 06-22-2024 End: 08-12-2024 Telephone encounter Stanley Emerson MD Work Phone: [facility] Start: 06-01-2024 End: 06-01-2024 ambulatory Blanca X Orkareych Facility:[facility] Start: 06-01-2024 End: 06-01-2024 Patient encounter procedure Blanca X Orzech [facility] Start: 05-21-2024 End: 05-21-2024 Refill Stanley Emerson MD Work Phone: [facility] Comment on above: Simple chronic bronc hitis (CMS/HCC) Start: 05-21-2024 End: 05-21-2024 Patient encounter procedure Stanley Emerson MD Work Phone: [facility] [place] Work Phone: Start: 05-21-2024 End: 05-21-2024 Office outpatient visit 25 minutes Teo Al MD Work Phone: [facility] Comment on above: Paroxysmal atrial fi brillation (Multi); High risk medication use; Coronary artery disease involving [place] coronary artery of [place] heart without angina pectoris; S/P PTCA (percutaneous transluminal coronary angioplasty); ST elevation myocardial infarction (STEMI), unspecified artery (Multi); Cardiomyopathy, ischemic; Essential hypertension; Dyslipidemia; Abdominal aortic aneurysm (AAA) greater than 5.5 cm in diameter in male (CMS-HCC); Transient cerebral ischemia, unspecified type; Stage 3a chronic kidney disease (Multi); BMI 26.0-26.9,adult; Former smoker Start: 05-21-2024 End: 05-21-2024 ambulatory TEO Mendez [facility] Ambulatory Start: 05-13-2024 End: 05-13-2024 Patient encounter procedure Stanley Emerson MD Work Phone: [facility] Comment on above: Encounter for Medica re annual wellness exam (Primary Dx); Advance directive discussed with patient; Encounter for screening for other disorder; Screening for alcohol problem; Former smoker; Overweight Start: 05-13-2024 End: 05-13-2024 ambulatory STANLEY EMERSON Not Available Start: 05-13-2024 End: 05-13-2024 Bamboo flowswaqar Emerson MD Work Phone: [facility] Start: 05-13-2024 End: 05-13-2024 Bamboo flowswaqar Emerson MD Work Phone: [facility] Start: 05-10-2024 End: 05-10-2024 Bamboo flowswaqar Emerson MD Work Phone: [facility] Start: 05-10-2024 End: 05-10-2024 Bamboo evette Emerson MD Work Phone: [facility] [...] STANLEY EMERSON Not Available Start: 05-06-2024 ambulatory Fabi Gomez Facility :[facility] Start: 05-05-2024 End: 05-05-2024 ambulatory Fabi Gomez Facility: [place] Start: 04-28-2024 End: 04-30-2024 Clinisync Result Encounter Generic External Data Provider [facility] External Department Unsolicited Start: 04-28-2024 End: 04-30-2024 Clinisync Result Encounter Generic External Data Provider [facility] External Department Unsolicited Start: 04-06-2024 End: 04-06-2024 ambulatory Katia JACOBS Facility:[facility] Start: 04-06-2024 End: 04-06-2024 Lab Drop off Katia JACOBS [facility] Start: 04-06-2024 End: 04-06-2024 ambulatory Katia JACOBS Facility: [place] Start: 04-06-2024 End: 04-06-2024 Patient encounter procedure Katia JACOBS [facility] Start: 03-23-2024 End: 03-23-2024 Clinisync Result Encounter [...] encounter procedure MD Stanley Emerson Work Phone: [facility] Work Phone: Start: 03-08-2024 End: 03-08-2024 ambulatory MD Stanley Emerson Work Phone: [facility] Work Phone: Start: 03-04-2024 End: 03-04-2024 Clinisync Result Encounter Generic External Data Provider [facility] External Department Unsolicited Start: 03-04-2024 End: 03-04-2024 Clinisync Result Encounter Generic External Data Provider [facility] External Department Unsolicited Start: 03-02-2024 End: 03-02-2024 ambulatory Blanca Boles Facility:[facility] Start: 03-02-2024 End: 03-02-2024 Patient encounter procedure Blanca X Layoch [facility] Start: 02-24-2024 End: 02-24-2024 Professional / ancillary services management Leanne Soriano LPN [facility] Comment on above: Paroxysmal atrial fi brillation (Multi) Start: 02-24-2024 End: 02-24-2024 ambulatory [facility] Ambulatory Start: 02-17-2024 End: 02-17-2024 ambulatory STANLEY EMERSON Not Available Start: 02-17-2024 End: 02-17-2024 Office outpatient visit 15 minutes Stanley Emerson MD Work Phone: [facility] Comment on above: Pneumonia of left lo wer lobe due to infectious organism (Primary Dx); Simple chronic bronchitis (CMS/HCC) Start: 02-10-2024 End: 02-10-2024 Office outpatient visit 40 minutes Teo Al MD Work Phone: [facility] Comment on above: Coronary artery dise ase involving [place] coronary artery of [place] heart without angina pectoris (Primary Dx); Paroxysmal atrial fibrillation (Multi); High risk medication use; S/P PTCA (percutaneous transluminal coronary angioplasty); Cardiomyopathy, ischemic; ST elevation myocardial infarction (STEMI), unspecified artery (Multi); Dyslipidemia; Stage 3a chronic kidney disease (Multi); Transient cerebral ischemia, unspecified type; BMI 26.0-26.9,adult; Former smoker; QT prolongation Start: 02-10-2024 End: 02-10-2024 ambulatory [facility] Start: 02-04-2024 End: 02-04-2024 ambulatory MD Stanley Emerson Work Phone: [facility] Work Phone: Start: 02-04-2024 End: 02-04-2024 Patient encounter procedure MD Stanley Emerson Work Phone: [facility] Nephrology Dominic Work Phone: Start: 01-29-2024 End: 01-29-2024 ambulatory STANLEY EMERSON Not Available Start: 01-23-2024 Non-patient / Non-visit MD Kai Emerson Work Phone: [facility] Rehab and Spine Work Phone: Start: 01-20-2024 ambulatory Blanca X Elvi Block y:UZMA Velasquez Start: 01-16-2024 Non-patient / Non-visit MD Kai Emerson Work Phone: [facility] Work Phone: Start: 01-16-2024 Non-patient / Non-visit MD Kai Emerson Work Phone: [facility] Work Phone: Start: 01-16-2024 End: 01-23-2024 Evaluation and management of inpatient MD Stanley Emerson Work Phone: [facility] [place] [facility] Work Phone: Start: 01-14-2024 Non-patient / Non-visit MD Kai Emerson Work Phone: [facility] Gastroenterology Work Phone: Start: 01-14-2024 End: 01-14-2024 Admission to same day surgery center MD Stanley Emerson Work Phone: [facility]-Digestive Health Work Phone: Start: 01-14-2024 End: 01-14-2024 ambulatory MD Stanley Emerson Work Phone: [facility] Work Phone: Start: 12-26-2023 End: 12-26-2023 Patient encounter procedure MD Stanley Emerson Work Phone: [facility] Start: 12-26-2023 End: 12-26-2023 ambulatory MD Stanley Emerson Work Phone: [facility] Work Phone: Start: 12-25-2023 End: 12-25-2023 ambulatory Fabi Gomez Facility: [facility] Start: 12-25-2023 End: 12-25-2023 Patient encounter procedure Fabi Goemz [facility] Start: 11-19-2023 End: 11-19-2023 ambulatory STANLEY EMERSON Not Available Start: 11-04-2023 End: 11-04-2023 Patient encounter procedure Blanca Boles [facility] Start: 10-22-2023 End: 10-22-2023 ambulatory MD Stanley Emerson Work Phone: [facility] Work Phone: Start: 10-22-2023 End: 10-22-2023 Patient encounter procedure MD Stanley Emerson Work Phone: [facility] Nephrology Work Phone: Start: 10-16-2023 Non-patient / Non-visit MD Kai Emerson Work Phone: [facility] [place] Work Phone: Start: 10-07-2023 End: 10-07-2023 Patient encounter procedure Katia JACOBS [facility] Start: 10-03-2023 End: 10-03-2023 Lab Drop off Katia JACOBS [facility] Start: 10-03-2023 End: 10-03-2023 Patient encounter procedure Katia JACOBS [facility] Start: 09-30-2023 Non-patient / Non-visit MD Kai Emerson Work Phone: [facility] Nephrology Work Phone: Start: 09-18-2023 Bradyarrhythmia MD Stanley billingsley Work Phone: [facility] Start: 09-18-2023 End: 09-18-2023 ambulatory MD Stanley Emerson Work Phone: [facility] Work Phone: Start: 09-18-2023 End: 09-18-2023 Patient encounter procedure MD Stanley Emerson Work Phone: [facility] Vascular Surgery Work Phone: Start: 09-11-2023 End: 09-11-2023 Patient encounter procedure Katia JACOBS [facility] Start: 08-18-2023 End: 08-18-2023 ambulatory MD Stanley Emerson Work Phone: [facility] Work Phone: Start: 08-18-2023 End: 08-18-2023 Patient encounter procedure MD Stanley Emerson Work Phone: [facility]-CT Scan [facility] [place] Work Phone: Start: 08-15-2023 End: 08-15-2023 Patient encounter procedure Katia JACOBS [facility] Start: 06-30-2023 End: 06-30-2023 Patient encounter procedure [facility] Start: 06-16-2023 End: 06-16-2023 Patient encounter procedure Kat[facility] Start: 06-10-2023 End: 06-10-2023 Patient encounter procedure Katia JACOBS [facility] Start: 05-06-2023 End: 05-06-2023 ambulatory Preston Griffin Other [facility] Other Start: 05-06-2023 Telephone encounter Preston Danielss [facility] Start: 04-16-2023 End: 04-16-2023 ambulatory Azcelestino Danielss Other [facility] Other Start: 04-16-2023 Telephone encounter Preston Danielss [facility] Start: 04-15-2023 End: 04-15-2023 ambulatory Preston Danielss Other [facility] Other Start: 04-15-2023 Office outpatient vi sit 25 minutes Azcelestino Danielss [facility] Start: 04-08-2023 End: 04-08-2023 ambulatory MD Stanley Emerson Work Phone: [facility] Work Phone: Start: 04-08-2023 End: 04-08-2023 Patient encounter procedure MD Stanley Emerson Work Phone: [facility] Start: 03-11-2023 End: 03-11-2023 Lab Drop off Katia JACOBS [facility] Start: 03-11-2023 End: 03-11-2023 Patient encounter procedure Katia JACOBS [facility] Start: 01-22-2023 Office outpatient vi sit 25 minutes Stanley Emerson Work Phone: [address] Work Phone: Start: 01-22-[address] Teo Al Facility: Start: 12-25-2022 End: 12-25-2022 Patient encounter procedure Katia JACOBS [facility] Start: 12-10-2022 End: 12-10-2022 Lab Drop off Katia Isabel ARLENE [facility] Start: 12-10-2022 End: 12-10-2022 Patient encounter procedure Katia JACOBS [facility] Start: 10-04-2022 End: 10-04-2022 Patient encounter procedure Katia JACOBS [facility] Start: 09-18-2022 End: 09-18-2022 Patient encounter procedure Katia Hall JACOBS [facility] Start: 09-15-2022 End: 09-15-[address] STANLEY EMERSON . Facility:[facility]1 Start: 09-12-2022 End: 09-12-[address] STANLEY EMERSON . Facility:[facility]1 Start: 09-08-2022 Encounter for preprocedural laboratory examination PRESTON GRIFFIN [facility] Start: 09-04-2022 End: 09-05-[address] STANLEY EMERSON . Facility:[facility]1 Start: 09-04-2022 Encounter for preprocedural cardiovascular examination DR KATIA JACOBS . [facility] Start: 09-02-2022 End: 09-03-[address] STANLEY EMERSON . Facility:[facility]1 Start: 09-02-2022 End: 09-03-2022 Encounter for preprocedural laboratory examination DR STANLEY EMERSON . Facility:[facility]1 Start: 09-02-2022 End: 09-03-[address] STANLEY EMERSON . Facility:[facility]1 Start: 09-02-2022 End: 09-03-2022 Encounter for preprocedural cardiovascular examination DR STANLEY EMERSON . Facility:[facility]1 Start: 08-21-2022 End: 08-21-2022 ambulatory Carlene Kasper Other [employer] Other Start: 08-21-2022 Follow-up encounter Carlene Kasper [facility] Start: 08-16-2022 End: 08-16-2022 ambulatory MD Stanley Emerson Work Phone: [facility] Work Phone: Start: 08-16-2022 End: 08-16-2022 Patient encounter procedure MD Stanley Emerson Work Phone: [facility] Work Phone: Start: 07-31-2022 End: 07-31-2022 Patient encounter procedure Katia JACOBS [facility] Start: 07-25-2022 End: 07-25-2022 ambulatory Margarito Valentine Other [employer] Other Start: 07-25-2022 Postop follow up vis it related to original px Margarito Valentine [facility] Start: 07-24-2022 End: 07-24-2022 ambulatory MD Stanley Emerson Work Phone: [facility] Work Phone: Start: 07-24-2022 End: 07-24-2022 Patient encounter procedure MD Stanley Emerson Work Phone: [facility]-MRI [facility] [place] Work Phone: Start: 07-02-2022 End: 07-03-2022 Evaluation and management of inpatient MD Stanley Emerson Work Phone: [facility] [place] [facility] Work Phone: Start: 06-21-2022 End: 06-21-2022 Patient encounter procedure MD Stanley Emerson Work Phone: [facility] Work Phone: Start: 06-19-2022 End: 06-19-2022 ambulatory Margarito Valentine Other [place] [employer] Other Start: 06-19-2022 Office outpatient vi sit 25 minutes Margarito Valentine [facility] Start: 06-12-2022 End: 06-12-2022 ambulatory MD Stanley Emerson Work Phone: [facility] Work Phone: Start: 06-12-2022 End: 06-12-2022 Patient encounter procedure MD Stanley Emerson Work Phone: [facility]-CT Scan [facility] [place] Work Phone: Start: 06-11-2022 End: 06-11-2022 Patient encounter procedure HEATHER OMALLEY [facility] Start: 06-06-2022 End: 06-06-2022 ambulatory Margarito Valentine Other [facility] Other Start: 06-06-2022 Office outpatient vi sit 25 minutes Margarito Valentine [facility] Start: 06-04-2022 End: 06-04-2022 ambulatory Aziz Bakcatherines Other [facility] Other Start: 06-04-2022 Office outpatient vi sit 25 minutes Azcelestino Griffin [facility] [place] Start: 06-03-2022 Office outpatient vi sit 25 minutes Stanley Emerson Work Phone: [facility] 250 DO Work Phone: Start: 06-03-[address] Stanley Emerson Facility: Start: 05-21-[address] Stanley Emerson Facility:[id number] Start: 05-20-[address] Stanley Emerson Facility:[id number] Start: 05-19-[address] Teo Al Facility:[id number] Start: 05-18-[address] Teo Al Facility:[id number] Start: 05-17-[address] Stanley Emerson Facility:[id number] Start: 05-17-2022 Bradyarrhythmia MD Stanley billingsley Work Phone: [facility] Comment on above: Problem List clean-u p per request of Phys. EHR Cmte Start: 05-17-[address] Teo Al Facility:[id number] Start: 05-16-2022 End: 05-22-2022 Encounter for preprocedural cardiovascular examination MD Stanley Emerson Work Phone: [facility] Start: 05-16-2022 End: 05-22-2022 Evaluation and management of inpatient MD Stanley Emerson Work Phone: [facility] [place] [facility] Work Phone: Start: 05-16-2022 End: 05-16-[address] STANLEY EMERSON . Facility:H1 Start: 05-15-2022 End: 05-16-[address] STANLEY EMERSON . Facility:H1 Start: 01-04-2022 End: 01-04-[address] STANLEY EMERSON . Facility: Patient encounter status [facility] Work Phone: End: 01-22-2023 Patient encounter status Stanley Emerson Work Phone: [facility] 250 DO Work Phone: Procedures Date Procedure Procedure Detail Performing Clinician Start: 11-16-2024 Cystoscopy Katia LORENZO Start: 10-27-2024 HP CBC WITH PLATEL ET NO DIFFERENTIAL Generic External Data Provider Start: 10-11-2024 IR Angiogram w/TLA/S tent Left Leg (Left) Stanley Emerson MD Work Phone: Start: 10-05-2024 Assay of magnesium Waqar Hadley MD Work Phone: Start: 10-05-2024 BASIC METABOLIC PANE L W/ REFLEX TO MG FOR LOW K Waqar Hadley MD Work Phone: Start: 10-04-2024 Ecg routine ecg w/le ast 12 lds w/i&r Waqar Hadley MD Work Phone: Start: 10-04-2024 Dup-scan xtr veins complete bilateral study Chrissy Plata MD Work Phone: Start: 10-04-2024 Virus centrifuge enh ncd id imfluor stain ea Waqar Hadley MD Work Phone: Start: 10-04-2024 BASIC METABOLIC PANE L W/ REFLEX TO MG FOR LOW K Waqar Hadley MD Work Phone: Start: 10-04-2024 Prothrombin time Waqar Hadley MD Work Phone: Start: 10-03-2024 Assay of ferritin Waqar Hadley MD Work Phone: Start: 10-03-2024 BASIC METABOLIC PANE L W/ REFLEX TO MG FOR LOW K Waqar Hadley MD Work Phone: Start: 10-03-2024 VITAMIN B12 & FOLATE Rodriguez Hadley MD Work Phone: Start: 10-02-2024 End: 10-02-2024 Culture bacterial quanttative colony count urine Waqar Hadley MD Work Phone: Start: 10-02-2024 MHPT CULT,URINE Generic External Data Provider Start: 10-02-2024 Iadna s aureus methicillin resist amp probe tq Waqar Hadley MD Work Phone: Start: 10-02-2024 RESPIRATORY PANEL, MOLECULAR, WITH COVID-19 Waqar Hadley MD Work Phone: Start: 10-02-2024 Antibody mycoplsm Waqar Hadley MD Work Phone: Start: 10-02-2024 Basic metabolic pane l calcium total Waqar Hadley MD Work Phone: Start: 10-02-2024 Thyrotropin [Units/volume] in Serum or Plasma Ruby Montana MD Work Phone: Start: 10-01-2024 URINE CULTURE - [facility] External Data Provider Start: 10-01-2024 Urine culture Stanley barclay MD Work Phone: Start: 09-28-2024 [facility]INE CULTURE - [facility] External Data Provider Start: 09-28-2024 Urine culture Talya Alicea MD Work Phone: Start: 09-21-2024 Urnls dip stick/tabl et rgnt non-auto w/o micrscp Stanley Emerson MD Work Phone: Start: 09-10-2024 Ecg routine ecg w/le ast 12 lds w/i&r Teo Al MD Work Phone: Start: 09-02-2024 ALL LIPID PROFILE (FASTING) Generic External Data Provider Start: 09-02-2024 ALL THYROID STIM HORMONE Generic External Data Provider Start: 08-23-2024 ITP Generic Ex ternal Data Provider Start: 07-29-2024 Ecg routine ecg w/le ast 12 lds w/i&r Teo Al MD Work Phone: Start: 07-23-2024 ITP Generic Ex ternal Data Provider Start: 07-13-2024 ALL THYROID STIM HORMONE Generic External Data Provider Start: 06-29-2024 SRMCOH PROTHROMBIN T DEANDRA INR W/O COUM Shaikh Hua CASILLAS Work Phone: Start: 06-25-2024 ITP Generic Ex ternal Data Provider Start: 05-21-2024 Ecg routine ecg w/le ast [...] Treatment Date Care Activity Detail Author Start: 10-02-2025 Thyroid stimulating hormone measurement TSH Level [facility] Start: 08-06-2025 Echocardiography Echocardiogram [facility] Start: 03-29-2025 End: 03-29-2025 Patient encounter procedure 03/29/2025 11:00 AM EST Office Visit [facility] [address] [facility] [address] [place] [address] Teo Al MD [address], [address] [address] [facility] Start: 03-21-2025 End: 05-21-2025 Complete Pulmonary Function Test (Spirometry/DLCO/Lung Volumes) Complete Pulmonary Function Test (Spirometry/DLCO/Lung Volumes) PFT Routine Paroxysmal atrial fibrillation (Multi) High risk medication use Expected: 03/21/2025 (Approximate), Expires: 05/21/2025 [facility] Work Phone: Comment on above: Expected: 03/21/2025 (Approximate), Expi res: 05/21/2025 Start: 03-21-2025 End: 05-21-2025 XR Chest 2 Views XR chest 2 views Imaging Routine Paroxysmal atrial fibrillation (Multi) High risk medication use Expected: 03/21/2025, Expires: 05/21/2025 [facility] Work Phone: Comment on above: Expected: 03/21/2025, Expires: Start: 03-12-2025 End: 09-10-2025 Complete Pulmonary Function Test (Spirometry/DLCO/Lung Volumes) Complete Pulmonary Function Test (Spirometry/DLCO/Lung Volumes) PFT Routine Paroxysmal atrial fibrillation (Multi) High risk medication use Expected: 03/12/2025 (Approximate), Expires: 09/10/2025 [facility] Service [facility] Work Phone: Comment on above: Expected: 03/12/2025 (Approximate), Expi res: 09/10/2025 Start: 01-29-2025 End: 07-29-2025 Aspartate aminotransferase [Enzymatic activity/volume] in Serum or Plasma by With P-5'-P Aspartate Aminotransferase Lab Routine Paroxysmal atrial fibrillation (Multi) High risk medication use Expected: 01/29/2025, Expires: 07/29/2025 [facility] Work Phone: Comment on above: Expected: 01/29/2025, Expires: Start: 01-29-2025 End: 07-29-2025 Basic metabolic 2000 panel - Serum or Plasma Basic Metabolic Panel Lab Routine Paroxysmal atrial fibrillation (Multi) High risk medication use Expected: 01/29/2025, Expires: 07/29/2025 [facility] Work Phone: Comment on above: Expected: 01/29/2025, Expires: Start: 01-29-2025 End: 07-29-2025 Complete Pulmonary Function Test (Spirometry/DLCO/Lung Volumes) Complete Pulmonary Function Test (Spirometry/DLCO/Lung Volumes) PFT Routine Paroxysmal atrial fibrillation (Multi) High risk medication use Expected: 01/29/2025 (Approximate), Expires: 07/29/2025 [facility] Work Phone: Comment on above: Expected: 01/29/2025 (Approximate), Expi res: 07/29/2025 Start: 01-29-2025 End: 07-29-2025 Lipid 1996 panel - Serum or Plasma Lipid Panel Lab Routine Dyslipidemia Expected: 01/29/2025 (Approximate), Expires: 07/29/2025 [facility] Work Phone: Comment on above: Expected: 01/29/2025 (Approximate), Expi res: 07/29/2025 Start: 01-29-2025 End: 07-29-2025 Thyrotropin [Units/volume] in Serum or Plasma Thyroid Stimulating Hormone Lab Routine Paroxysmal atrial fibrillation (Multi) High risk medication use Expected: 01/29/2025, Expires: 07/29/2025 [facility] Work Phone: Comment on above: Expected: 01/29/2025, Expires: Start: 01-29-2025 End: 07-29-2025 XR Chest 2 Views XR chest 2 views Imaging Routine Paroxysmal atrial fibrillation (Multi) High risk medication use Expected: 01/29/2025 (Approximate), Expires: 07/29/2025 [facility] Work Phone: Comment on above: Expected: 01/29/2025 (Approximate), Expi res: 07/29/2025 Start: 01-15-2025 Echocardiography Echocardiogram [facility] Start: 11-19-2024 End: 05-21-2025 Alanine aminotransferase [Enzymatic activity/volume] in Serum or Plasma by With P-5'-P Alanine Aminotransferase Lab Routine Paroxysmal atrial fibrillation (Multi) High risk medication use Expected: 11/19/2024 (Approximate), Expires: 05/21/2025 [facility] Work Phone: Comment on above: Expected: 11/19/2024 (Approximate), Expi res: 05/21/2025 Start: 11-19-2024 End: 05-21-2025 Aspartate aminotransferase [Enzymatic activity/volume] in Serum or Plasma by With P-5'-P Aspartate Aminotransferase Lab Routine Paroxysmal atrial fibrillation (Multi) High risk medication use Expected: 11/19/2024 (Approximate), Expires: 05/21/2025 [facility] Work Phone: Comment on above: Expected: 11/19/2024 (Approximate), Expi res: 05/21/2025 Start: 11-19-2024 End: 05-21-2025 Basic metabolic 2000 panel - Serum or Plasma Basic Metabolic Panel Lab Routine Paroxysmal atrial fibrillation (Multi) High risk medication use Expected: 11/19/2024 (Approximate), Expires: 05/21/2025 [facility] Work Phone: Comment on above: Expected: 11/19/2024 (Approximate), Expi res: 05/21/2025 Start: 11-19-2024 End: 05-21-2025 CBC panel - Blood by Automated count CBC Lab Routine Paroxysmal atrial fibrillation (Multi) High risk medication use Expected: 11/19/2024 (Approximate), Expires: 05/21/2025 [facility] Work Phone: Comment on above: Expected: 11/19/2024 (Approximate), Expi res: 05/21/2025 Start: 11-19-2024 End: 05-21-2025 Lipid 1996 panel - Serum or Plasma Lipid Panel Lab Routine Dyslipidemia Expected: 11/19/2024 (Approximate), Expires: 05/21/2025 [facility] Work Phone: Comment on above: Expected: 11/19/2024 (Approximate), Expi res: 05/21/2025 Start: 11-19-2024 End: 05-21-2025 Thyrotropin [Units/volume] in Serum or Plasma Thyroid Stimulating Hormone Lab Routine Paroxysmal atrial fibrillation (Multi) High risk medication use Expected: 11/19/2024 (Approximate), Expires: 05/21/2025 [facility] Work Phone: Comment on above: Expected: 11/19/2024 (Approximate), Expi res: 05/21/2025 Start: 11-09-2024 End: 11-09-2024 Patient encounter procedure [facility] Comment on above: Arrived Start: 10-14-2024 End: 10-14-2024 Patient encounter procedure 10/14/2024 2:30 PM EDT Office Visit [facility] [address] [place] [address] Stanley Emerson MD [address] [place] [address] [facility] Start: 10-11-2024 [facility] Start: 10-08-2024 End: 10-08-2025 Basic metabolic 2000 panel - Serum or Plasma Basic Metabolic Panel Lab Routine Pre-operative cardiovascular examination Expected: 10/08/2024 (Approximate), Expires: 10/08/2025 [facility] Work Phone: Comment on above: Expected: 10/08/2024 (Approximate), Expi res: 10/08/2025 Start: 10-08-2024 End: 10-08-2025 CBC panel - Blood by Automated count CBC Lab Routine Pre-operative cardiovascular examination Expected: 10/08/2024 (Approximate), Expires: 10/08/2025 [facility] Work Phone: Comment on above: Expected: 10/08/2024 (Approximate), Expi res: 10/08/2025 Start: 10-08-2024 End: 10-08-2025 PT and aPTT panel - Platelet poor plasma by Coagulation assay Coagulation Screen Lab Routine Pre-operative cardiovascular examination Bradyarrhythmia on pre-operative cardiovascular examination Pre-operative cardiovascular examination, supraventricular arrhythmia Expected: 10/08/2024 (Approximate), Expires: 10/08/2025 [facility] Service Area Work Phone: Comment on above: Expected: 10/08/2024 (Approximate), Expi res: 10/08/2025 Start: 10-02-2024 Annual Wellness Visit (Medicare) Annual Wellness Visit (Medicare) Harri Start: 10-01-2024 Urine culture [facility] Start: 10-01-2024 Bacteria identified in Urine by Culture Urine Culture [facility] Start: 09-28-2024 Urine culture [facility] Start: 09-28-2024 Bacteria identified in Urine by Culture Urine Culture [facility] Start: 09-23-2024 US Lower extremity artery - bilateral [facility] Start: 09-21-2024 End: 09-21-2024 Patient encounter procedure 09/21/2024 2:15 PM EDT Office Visit [facility] [address] [facility] [address] [place] [address] Stanley Emerson MD [address] [facility] [address] [place] [address] 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 disturbance, psychotic disturbance, mood disturbance, or anxiety (CMS/HCC); Hallucinations; Need for prophylaxis against urinary tract infection; Indwelling urinary catheter present; Former smoker; Polypharmacy; Overweight [facility] Comment on above: Mild late onset Alzheimer's dementia wit hout behavioral disturbance, psychotic disturbance, mood disturbance, or anxiety (CMS/HCC); Hallucinations; Need for prophylaxis against urinary tract infection; Indwelling urinary catheter present; Former smoker; Polypharmacy; Overweight Start: 09-17-2024 COVID-19 Vaccine () COVID-19 Vaccine () [facility] Start: 09-17-2024 COVID-19 Vaccine () COVID-19 Vaccine () [facility] Start: 09-10-2024 End: 09-10-2025 Aspartate aminotransferase [Enzymatic activity/volume] in Serum or Plasma by With P-5'-P Aspartate Aminotransferase Lab Routine Dyslipidemia Expected: 09/10/2024 (Approximate), Expires: 09/10/2025 [facility] Work Phone: Comment on above: Expected: 09/10/2024 (Approximate), Expi res: 09/10/2025 Start: 09-10-2024 End: 09-10-2025 Basic metabolic 2000 panel - Serum or Plasma Basic Metabolic Panel Lab Routine Cardiomyopathy, ischemic Coronary artery disease involving [place] coronary artery of [place] heart without angina pectoris Expected: 09/10/2024 (Approximate), Expires: 09/10/2025 [facility] Work Phone: Comment on above: Expected: 09/10/2024 (Approximate), Expi res: 09/10/2025 Start: 09-10-2024 End: 09-10-2025 Thyrotropin [Units/volume] in Serum or Plasma Thyroid Stimulating Hormone Lab Routine Dyslipidemia Expected: 09/10/2024 (Approximate), Expires: 09/10/2025 [facility] Work Phone: Comment on above: Expected: 09/10/2024 (Approximate), Expi res: 09/10/2025 Start: 09-09-2024 End: 07-29-2025 Thyrotropin [Units/volume] in Serum or Plasma Thyroid Stimulating Hormone Lab Routine Paroxysmal atrial fibrillation (Multi) High risk medication use Expected: 09/09/2024 (Approximate), Expires: 07/29/2025 [facility] Work Phone: Comment on above: Expected: 09/09/2024 (Approximate), Expi res: 07/29/2025 Start: 07-29-2024 End: 07-29-2024 Patient encounter procedure 07/29/2024 11:00 AM EST Office Visit [facility] [address] [place], [place] [id number] Teo Al MD [address] [facility] [address], [address] [place] [address] [facility] Start: 05-21-2024 End: 05-21-2025 Alanine aminotransferase [Enzymatic activity/volume] in Serum or Plasma by With P-5'-P Alanine Aminotransferase Lab Routine Paroxysmal atrial fibrillation (Multi) High risk medication use Expected: 05/21/2024 (Approximate), Expires: 05/21/2025 [facility] Work Phone: Comment on above: Expected: 05/21/2024 (Approximate), Expi res: 05/21/2025 Start: 05-21-2024 End: 05-21-2025 Aspartate aminotransferase [Enzymatic activity/volume] in Serum or Plasma by With P-5'-P Aspartate Aminotransferase Lab Routine Paroxysmal atrial fibrillation (Multi) High risk medication use Expected: 05/21/2024 (Approximate), Expires: 05/21/2025 [facility] Work Phone: Comment on above: Expected: 05/21/2024 (Approximate), Expi res: 05/21/2025 Start: 05-21-2024 End: 05-21-2025 Basic metabolic 2000 panel - Serum or Plasma Basic Metabolic Panel Lab Routine Paroxysmal atrial fibrillation (Multi) High risk medication use Expected: 05/21/2024 (Approximate), Expires: 05/21/2025 [facility] Work Phone: Comment on above: Expected: 05/21/2024 (Approximate), Expi res: 05/21/2025 Start: 05-21-2024 End: 05-21-2025 Thyrotropin [Units/volume] in Serum or Plasma Thyroid Stimulating Hormone Lab Routine Paroxysmal atrial fibrillation (Multi) High risk medication use Expected: 05/21/2024 (Approximate), Expires: 05/21/2025 [facility] Work Phone: Comment on above: Expected: 05/21/2024 [...] Visit [facility] 100 [address] [facility] [address] [place] [address] Stanley Emerson MD [address] [facility] [address] [place] [address] (Fax) Essential hypertension, benign (CMS/HCC); Hypertensive nephropathy (CMS/HCC); [...] procedure 04/12/2024 3:20 PM EST Office Visit [facility] 7[address] [facility] [address] [place] [phone] Teo Al MD [address] [facility], [address] [place] [address] [facility] Start: 03-18-2024 End: 03-18-2024 Patient encounter procedure 03/18/2024 11:30 AM EDT Office Visit [facility] 100 [address] [facility] [address] [place] [address] Stanley Emerson MD [address] [facility] [place] [address] (Fax) Pneumonia of right lower lobe due to infectious organism [facility] 100 Comment on above: Pneumonia of right lower lobe due to inf ectious organism Start: 03-11-2024 End: 02-09-2025 Complete Pulmonary Function Test (Spirometry/DLCO/Lung Volumes) Complete Pulmonary Function Test (Spirometry/DLCO/Lung Volumes) PFT Routine Paroxysmal atrial fibrillation (Multi) High risk medication use Expected: 03/11/2024 (Approximate), Expires: 02/09/2025 [facility] Work Phone: Comment on above: Expected: 03/11/2024 (Approximate), Expi res: 02/09/2025 Start: 03-11-2024 End: 02-09-2025 XR Chest 2 Views XR chest 2 views Imaging Routine Paroxysmal atrial fibrillation (Multi) High risk medication use Expected: 03/11/2024, Expires: 02/09/2025 [facility] Work Phone: Comment on above: Expected: 03/11/2024, Expires: Start: 03-08-2024 Plain chest X-ray XR chest 2V* [facility] Start: 02-18-2024 End: 02-18-2024 Professional / ancillary services management 02/18/2024 1:00 PM EDT Ancillary Procedure [facility] [address] [phone] [facility] Start: 02-17-2024 End: 02-09-2025 ECG 12 Lead ECG 12 Lead ECG Routine Paroxysmal atrial fibrillation (Multi) Expected: 02/17/2024 (Approximate), Expires: 02/09/2025 [facility] Service Area Work Phone: Comment on above: Expected: 02/17/2024 (Approximate), Expi res: 02/09/2025 Start: 02-10-2024 End: 02-09-2025 Aspartate aminotransferase [Enzymatic activity/volume] in Serum or Plasma by With P-5'-P Aspartate Aminotransferase Lab Routine Paroxysmal atrial fibrillation (Multi) High risk medication use Expected: 02/10/2024 (Approximate), Expires: 02/09/2025 [facility] Work Phone: Comment on above: Expected: 02/10/2024 (Approximate), Expi res: 02/09/2025 Start: 02-10-2024 End: 02-09-2025 Basic metabolic 2000 panel - Serum or Plasma Basic Metabolic Panel Lab Routine Paroxysmal atrial fibrillation (Multi) High risk medication use Expected: 02/10/2024 (Approximate), Expires: 02/09/2025 [facility] Work Phone: Comment on above: Expected: 02/10/2024 (Approximate), Expi res: 02/09/2025 Start: 02-10-2024 End: 02-09-2025 Thyrotropin [Units/volume] in Serum or Plasma Thyroid Stimulating Hormone Lab Routine Paroxysmal atrial fibrillation (Multi) High risk medication use Expected: 02/10/2024 (Approximate), Expires: 02/09/2025 [facility] Work Phone: Comment on above: Expected: 02/10/2024 (Approximate), Expi res: 02/09/2025 Start: 01-25-2024 COVID-19 Vaccine ( season) COVID-19 Vaccine ( season) [facility] Start: 01-25-2024 Influenza vaccination Influenza Vaccine (#1) [facility] Start: 01-23-2024 [facility] Start: 01-23-2024 Bacteria identified in Urine by Culture [facility] Start: 01-22-2024 Referral to clinical resident service coordinator [facility] Start: 01-22-2024 Referral to rehabilitation physician [facility] Start: 01-21-2024 FUV, Provider: Teo Al, Status: Pen, Time: 11:50 AM FUV, Provider: Teo Al, Status: Pen, Time: 11:50 AM [facility] [address] DO Work Phone: Start: 01-16-2024 Dilation of Coronary Artery, One Artery with Drug-eluting Intraluminal Device, Percutaneous Approach Dilation of Coronary Artery, One Artery with Drug-eluting Intraluminal Device, Percutaneous Approach [facility] Start: 01-16-2024 Fluoroscopy of Left Heart using Low Osmolar Contrast Fluoroscopy of Left Heart using Low Osmolar Contrast [facility] Start: 01-16-2024 Fluoroscopy of Multiple Coronary Arteries using Low Osmolar Contrast Fluoroscopy of Multiple Coronary Arteries using Low Osmolar Contrast [facility] Start: 01-16-2024 Measurement of Cardiac Sampling and Pressure, Left Heart, Percutaneous Approach Measurement of Cardiac Sampling and Pressure, Left Heart, Percutaneous Approach [facility] Start: 01-16-2024 Hospital admission [facility] Start: 01-16-2024 Referral to cardiac rehabilitation program [facility] Start: 01-16-2024 [facility] Start: 01-14-2024 [facility] Start: 04-08-2023 Bacteria identified in Urine by Culture [facility] Start: 12-10-2022 FUV, Provider: Teo Al, Status: Pen, Time: 10:10 AM FUV, Provider: Teo Al, Status: Pen, Time: 10:10 AM [place] [address] DO Work Phone: Start: 07-24-2022 MR Abdomen WO and W contrast IV [facility] Start: 07-24-2022 MRI of abdomen with contrast MR abdomen wo/w con [facility] Start: 07-03-2022 [facility] Start: 07-02-2022 Fluoroscopy of Aorta and Bilateral Lower Extremity Arteries using Low Osmolar Contrast Fluoroscopy of Aorta and Bilateral Lower Extremity Arteries using Low Osmolar Contrast [facility] Start: 07-02-2022 Restriction of Abdominal Aorta with Intraluminal Device, Percutaneous Approach Restriction of Abdominal Aorta with Intraluminal Device, Percutaneous Approach [facility] Start: 05-22-2022 [facility] Start: 05-20-2022 Evaluation procedure [facility] Start: 05-19-2022 [facility] Start: 05-17-2022 End: 05-17-2022 [facility] Start: 05-16-2022 Referral to sales product manager [facility] Start: 05-16-2022 Referral to vascular surgeon [facility] Start: 05-16-2022 Hospital admission [facility] Start: 11-30-2018 RSV High Risk: (Elderly (60+) or Population) (1 - 1-dose 75+ series) RSV High Risk: (Elderly (60+) or Population) (1 - 1-dose 75+ series) [facility] Start: 2003 RSV patients and/or patients aged 60+ years (1 - 1-dose 60+ series) RSV patients and/or patients aged 60+ years (1 - 1-dose 60+ series) [facility] Start: 11-30-1993 Shingles vaccine (1 of 2) Shingles vaccine (1 of 2) [facility] Start: 11-30-1993 Zoster Vaccines (1 of 2) Zoster Vaccines (1 of 2) [facility] Start: 11-30-1965 DTaP/Tdap/Td Vaccines (1 - Tdap) DTaP/Tdap/Td Vaccines (1 - Tdap) [facility] Start: 11-30-1962 DTaP/Tdap/Td vaccine (1 - Tdap) DTaP/Tdap/Td vaccine (1 - Tdap) [facility] Start: 11-30-1962 Urine screening for protein CKD: Urine Protein Screening [facility] Start: 11-30-1961 Diabetes mellitus screening Diabetes Screening [facility] Start: 1955 Depression Screen Depression Screen [facility] [employer] Start: 11-30-1953 Lipid panel Lipids [facility] Start: 1943 Creatinine measurement Creatinine Level [facility] Start: 1943 Lipid panel Lipid Panel [facility] Start: 1943 Medicare Annual Wellness Visit Medicare Annual Wellness Visit (AWV) [facility] Start: 1943 Potassium measurement Potassium Level [facility] Start: 1943 Thyroid stimulating hormone measurement TSH Level [facility] End: 10-07-2024 Basic Metabolic Panel w/ Reflex to MG Basic Metabolic Panel w/ Reflex to MG Lab Routine Tomorrow AM for 5 Occurrences starting 10/03/2024 until 10/07/2024, 3 completed [facility] Comment on above: Tomorrow AM for 5 Occurrences starting 0 10/03/2024 until 10/07/2024, 3 completed BLOOD CULTURE 1 BLOOD CULTURE 1 Lab Routine 04/28/2024 8:34 AM [facility] BLOOD CULTURE 2 BLOOD CULTURE 2 Lab Routine 04/28/2024 8:40 AM EST [facility] End: 10-07-2024 CBC W Auto Differential panel - Blood CBC with Auto Differential Lab Routine Tomorrow AM for 5 Occurrences starting 10/03/2024 until 10/07/2024, 3 completed [facility] Comment on above: Tomorrow AM for 5 Occurrences starting 0 10/03/2024 until 10/07/2024, 3 completed Culture, Urine Culture, Urine Microbiology [employer] Label Print 10/02/2024 3:43 PM EDT [facility] ECG 12 Lead ECG 12 Lead ECG Routine Paroxysmal atrial fibrillation (Multi) 02/24/2024 2:45 PM EDT [facility] Service Area Work Phone: Insj implntbl defib pulse gen w/1 existing ld ICD SUBQ IMPLANT Cardiomyopathy, ischemic Ventricular ectopy/arrhythmia, pre-operative cardiovascular exam Virtual [place] [facility] [employer] Operator Oxygen therapy [[facility] Data Set] Initiate Oxygen Therapy Protocol Respiratory Care Routine As Needed until discontinued starting 10/02/2024 [facility] Comment on above: As Needed until discontinued starting Patient Education [facility] Work Phone: Patient referral [facility] Work Phone: End: 10-23-2024 Protime-INR Protime-INR Lab Routine Daily for 3 Weeks starting 10/03/2024 until 10/23/2024, 3 completed [facility] Comment on above: Daily for 3 Weeks starting 10/03/2024 un til 10/23/2024, 3 completed Renal function 1999 panel - Serum or Plasma [facility] Renal function 1999 panel - Serum or Plasma [facility] Renal function 1999 panel - Serum or Plasma [facility] Renal function 1999 panel - Serum or Plasma [facility] Spirometry panel Incentive chadd metry Respiratory Care Routine Every 2hr while awake until discontinued starting 10/02/2024 [facility] Comment on above: Every 2hr while awake until discontinued starting 10/02/2024 URINE CULTURE - [facility]U RE - [facility] Lab Routine 09/28/2024 6:08 PM EDT [facility] URINE CULTURE - [facility] URINE CULTU RE - [facility] Lab Routine 10/01/2024 3:40 PM EDT [facility] End: 08-06-2024 US Heart Transthoracic [facility] Service Area Work Phone: Comment on above: Once for 1 Occurrences starting 08/07/19 until 08/06/2024 US Thoracic and abdo arturo aorta [facility] XR Chest 2 Views [facility] Immunizations Immunization Date Immunization Notes Care Provider Fa cility 08-23-2024 RSV, recombinant, protein subunit RSVpreF, adjuvant reconstitu, 120mcg/0.5mL, PF (Arexvy) Stanley Emerson MD Work Phone: [facility] 03-19-2024 influenza virus vacc ine, unspecified formulation Katia JACOBS [facility] 03-19-2024 influenza, seasonal, injectable Generic Provider [facility] 03-19-2024 Pfizer Purple Cap SARS-CoV-2 Vaccination Generic Provider [facility] 05-28-2023 Pneumococcal Conjuga te PCV 20 Stanley Emerson MD Work Phone: [facility] 03-26-2023 Influenza, Seasonal, Quadrivalent, Adjuvanted Teo Al MD Work Phone: [facility] Work Phone: 03-26-2023 influenza virus vacc ine, unspecified formulation Teo Al MD Work Phone: [facility] 02-16-2023 SARS-COV-2 (COVID-19 ) vaccine, mRNA, spike protein, LNP, PF, valente-sucrose, 30 mcg/0.3 mL Stanley Emerson MD Work Phone: [facility] 05-20-2022 influenza, high dose seasonal, preservative-free Teo Al MD Work Phone: [facility] Work Phone: 03-29-2022 Moderna Bivalent Connell ster Vaccination Stanley Emerson MD Work Phone: [facility] 03-29-2022 Pfizer COVID-19 Vac Bivalent 30 MCG/0.3ML Intramuscular Suspension Stanley Emerson Work Phone: [facility] 03-16-2022 influenza virus vacc ine, unspecified formulation Katia JACOBS [facility] 03-16-2022 influenza, seasonal, injectable Stanley Emerson Work Phone: [facility] 250 DO Work Phone: 03-06-2022 Fluzone High-Dose Quadrivalent 0.7 ML Intramuscular Suspension Prefilled Syringe Stanley Emerson Work Phone: [facility] 250 DO Work Phone: 03-06-2022 influenza virus vacc ine, unspecified formulation HEATHER OMALLEY [facility] 10-03-2021 Comirnaty 30 MCG/0.3 ML Intramuscular Suspension Stanley Emerson Work Phone: [facility] 250 DO Work Phone: 10-03-2021 COVID-19 mRNA, Taniya wright (Pfizer) MD Stanley Emerson Work Phone: [facility] 10-03-2021 SARS-CoV-2 mRNA (pcwnipghouv-ssye-voieur e) vaccine HEATHER OMALLEY [facility] 10-03-2021 SARS-CoV-2, Unspecified Jesus Emerson MD Work Phone: [facility] 04-23-2021 pneumococcal polysaccharide vaccine, 23 valent Stanley Emerson Work Phone: [facility] 02-22-2021 influenza virus vacc ine, unspecified formulation Katia JACOBS [facility] 02-22-2021 influenza, injectabl e, quadrivalent, preservative free Stanley Emerson Work Phone: [facility] 250 DO Work Phone: 02-21-2021 Pfizer-BioNTech COVI D-19 Vacc 30 MCG/0.3ML Intramuscular Suspension Stanley Emerson Work Phone: [facility] Comment on above: Result Comment: 2022: [id number] 02-14-2021 influenza, high dose seasonal, preservative-free Teo Al MD Work Phone: [facility] Work Phone: 07-28-2020 Pfizer-BioNTech COVI D-19 Vacc 30 MCG/0.3ML Intramuscular Suspension Stanley Emerson Work Phone: [facility] 07-07-2020 Pfizer-BioNTech COVI D-19 Vacc 30 MCG/0.3ML Intramuscular Suspension Stanley Emerson Work Phone: [facility] 02-22-2020 influenza virus vacc ine, unspecified formulation HEATHER JOSSELIN [facility] 02-22-2020 influenza, injectabl e, quadrivalent, preservative free Stanley Emerson MD Work Phone: [facility] 02-22-2020 Seasonal, quadrivale nt, recombinant, injectable influenza vaccine, preservative free Stanley Emerson Work Phone: [facility] 250 DO Work Phone: Payers Date Payer Category Payer Self-pay 2022 Medicare [id number] 2015 Medicare supplementa l policy (as second payer) [employer] MEDICARE SUPPLEMENT [id number] 2015 Private Health Insurance [id number] .[id number] .[id number] 2010 Medicare [id number] .[id number] 1959 Medicare [id number] 1959 Private Health Insurance [id number] 1943 Unknown [id number] 2.840.1.416796.3.579.2 .593 1943 Unknown [id number] 2.840.1.560307.3.579.2 .593 1943 Unknown [id number] 2.16840.1.428302.3.579.2 .593 1943 Unknown [id number] 2.16.840.1.546891.3.579.2 .593 1943 Unknown [id number] 2.16840.1.392580.3.579.2 .593 4 Unknown [id number] 2.840.1.452370.3.579.2 .593 1943 Unknown [id number] 2.840.1.775863.3.579.2 .593 1943 Unknown [id number] .840.1.414071.3.579.2 .593 1943 Unknown [id number] 2.840.1.741485.3.579.2 .356 1943 Unknown [id number] .840.1.900145.3.579.2 .356 1943 Unknown [id number] .840.1.162235.3.579.2 .356 1943 Unknown [id number] 840.1.116678.3.579.2 .356 1943 Unknown [id number] .840.1.636541.3.579.2 .356 1943 Unknown [id number] .840.1.579948.3.579.2 .356 1943 Unknown [id number] 840.1.413663.3.579.2 .356 1943 Unknown [id number] 07.11.830.1.093456.3.579.2 .356 1943 Unknown [id number] 840.1.640610.3.579.2 .727 1943 Unknown [id number] .840.1.806344.3.579.2 .727 1943 Unknown [id number] .840.1.833934.3.579.2 .727 1943 Unknown [id number] .840.1.798599.3.579.2 .727 1943 Unknown [id number] 2.16.840.1.637301.3.579.2 .727 194 Unknown [id number] 2.16.840.1.671175.3.579.2 .727 1943 Unknown [id number] 2.16.840.1.377733.3.579.2 .727 194 Unknown [id number] 2.16.840.1.155667.3.579.2 .72 1943 Unknown [id number] 2.16.840.1.585499.3.579.2 .727 1943 Unknown [id number] 2.16.840.1.179940.3.579.2 .72 1943 Unknown [id number] 2.16.840.1.296755.3.579.2 .727 1943 Unknown [id number] 2.16.840.1.346449.3.579.2 .727 1943 Unknown [id number] 2.16.840.1.174286.3.579.2 .727 1943 Unknown [id number] 2.16.840.1.329444.3.579.2 .727 1943 Unknown [id number] 2.16.840.1.196690.3.579.2 .176 194 Unknown [id number] 2.16.840.1.163198.3.579.2 .176 1943 Unknown [id number] 2.16.840.1.378252.3.579.2 .1246 194 Unknown [id number] 2.16.840.1.128310.3.579.2 .1246 1943 Unknown [id number] 2.16.840.1.325549.3.579.2 .1244 194 Unknown [id number] 2.16.840.1.654667.3.579.2 .1244 1943 Unknown [id number] 2.16.840.1.987908.3.579.2 .1244 1943 Unknown [id number] 2.16.840.1.266136.3.579.2 .1244 1943 Unknown [id number] 2..840.1.272413.3.579.2 .1244 1943 Unknown [id number] 2.840.1.993329.3.579.2 .1244 1943 Unknown [id number] 2.840.1.244819.3.579.2 .1259 1943 Unknown [id number] 2.840.1.642442.3.579.2 .1259 1943 Unknown [id number] 2.840.1.083891.3.579.2 .1259 1943 Unknown [id number] .840.1.224020.3.579.2 .1259 194 Unknown [id number] 2.840.1.920756.3.579.2 .1259 1943 Unknown [id number] .840.1.629835.3.579.2 .1259 194 Unknown [id number] 840.1.288479.3.579.2 .1259 194 Unknown [id number] .840.1.608439.3.579.2 .1259 194 Unknown [id number] 2.840.1.124289.3.579.2 .1259 1943 Unknown [id number] 2.840.1.111811.3.579.2 .727 1943 Unknown [id number] 2.840.1.377731.3.579.2 .727 1943 Unknown [id number] 2.16.840.1.281462.3.579.2 .727 1943 Unknown [id number] 2..840.1.815990.3.579.2 .72 1943 Unknown [id number] 2..840.1.511061.3.579.2 .72 1943 Unknown [id number] 2..840.1.819147.3.579.2 .72 1943 Unknown [id number] 2..840.1.641696.3.579.2 .1943 Unknown [id number] 2.840.1.500782.3.579.2 .72 Medicare Medicare Nonpatient [id number] Unknown Unknown [facility] [id number] Unknown [id number] 2.840.1.316569.3.579.2 .531 Unknown [id number] 2.840.1.621390.3.579.2 .531 Unknown [id number] 2.840.1.895643.3.579.2 .531 Unknown [id number] 2.840.1.205796.3.579.2 .531 Unknown [id number] 2..840.1.741332.3.579.2 .531 Unknown [id number] 2.16.840.1.353208.3.579.2 .531 Unknown [id number] 2.16.840.1.129843.3.579.2 .531 Unknown [id number] 2.16.840.1.662634.3.579.2 .531 Unknown [id number] 2.840.1.648746.3.579.2 .531 Unknown [id number] 2.16.840.1.236181.3.579.2 .531 Social History Date Type Detail Facility Start: 12-31-2023 End: 02-10-2024 Daily caffeine consumption Daily caffeine consumption [facility] 250 DO Work Phone: Comment on above: 3-4 cups coffee kellen y; 05/17/23 quit; 1/2 dozen cigarettes ; Start: 06-11-2022 End: 11-16-2024 Tobacco smoking status Heavy tobacco smoker (finding) [facility] [place] Start: 12-31-2023 End: 02-10-2024 Sex Assigned At Male [facility] Start: 12-31-1965 End: 01-23-2024 Tobacco smoking status NHIS Smoker (finding) [facility] Start: 1945 Sex Assigned At Male F [facility] Start: 07-02-2022 End: 01-29-2024 Tobacco smoking status NHIS Ex-smoker (finding) [facility] Tobacco smoking status Never [facility] Start: [birth year]31-1965 History of tobacco use Cigarette Smo ker [facility] Work Phone: Start: 01-29-2024 End: 02-10-2024 Tobacco use and exposure Smokeless tobacco non-user [facility] Work Phone: Start: 02-24-2024 End: 11-09-2024 Alcoholic beverage intake Lifetime non-drinker (finding) [facility] Work Phone: Start: 1945 [facility] Start: 01-31-2024 End: 10-08-2024 Exposure to SARS-CoV-2 (event) Not sure [facility] Within the last year , have you [...] to buy more. Never true [facility] Start: 12-22-2009 End: 08-11-2024 Sex Male (finding) [facility] How often do you nee d to have someone help you when you read instructions, pamphlets, or other written material from your doctor or pharmacy [SILS] Always [facility] Sexual Orientation [facility] [place] Medical Equipment Procedure Code Equipment Code Equipment Origin al Text Equipment Identifier Dates Percutaneous endovascular repair of abdominal aortic aneurysm (AAA) Abdominal aorta endovascular stent-graft ()[id number] FDA Start: 07-02-2022 Percutaneous endovascular repair of abdominal aortic aneurysm (AAA) Abdominal aorta endovascular stent-graft ()[id number] FDA Start: 07-02-2022 Percutaneous endovascular repair of abdominal aortic aneurysm (AAA) Abdominal aorta endovascular stent-graft ()[id number] FDA Start: 07-02-2022 Percutaneous endovascular repair of abdominal aortic aneurysm (AAA) Soft-tissue/mesh anchor, non-bioabsorbable ()[id number] FDA Start: 07-02-2022 CL STENT JERZY FRONTIER [...] FRONTIER 3.0 X 38 FDA Start: 01-16-2024 Multiple periphe ral artery stent, bare-metal ()[id number] FDA Start: 10-11-2024 Multiple periphe ral artery stent, bare-metal ()[id number] FDA Start: 10-11-2024 Goals Date Patient Goal Desired Activity /State Functional Status Date Assessment Result Facility 07-15-2024 Functional Status N/A [facility] 04-06-2024 Functional Status N/A [facility] 01-23-2024 Functional status Patient at Baseline [facility] Work Phone: 10-03-2023 Functional Status N/A [facility] 06-30-2023 Functional Status N/A [facility] 06-10-2023 Functional Status N/A [facility] 03-11-2023 Functional Status N/A [facility] 12-10-2022 Functional Status N/A [facility] 09-18-2022 Functional Status N/A [facility] 07-31-2022 Functional Status N/A [facility] 07-03-2022 Functional status Patient at Baseline [facility] Work Phone: 06-11-2022 Functional Status N/A [facility] 05-16-2022 Functional status Patient Not at Baseline [facility] Work Phone: Mental Status Date Assessment Result Facility 01-23-2024 Cognitive function Cognitive Sta tus Patient is Progressing Toward Baseline [facility] Work Phone: 07-03-2022 Cognitive function Cognitive Sta tus Patient at Baseline [facility] Work Phone: 05-16-2022 Cognitive function Cognitive Sta tus Patient at Baseline [facility] Work Phone: Clinical Notes 06-04-2022 to 11-16-2024 Stanley Emerson MD - 11/09/2024 2:00 PM Anay Emerson MD - 10/14/2024 2:30 PM Anay Emerson MD - 10/13/2024 8:31 AM Anatoliy Montana MD - 10/08/2024 3:00 PM EDTPatient Instructions Note Date & Type Note Facility 11-16-2024 Hospital Discharge instructions Patient Education 11/16/2024 14:35:51 Indwelling Urinary Catheter Insertion, Care After Indwelling [...] provider. Document Revised: 08/01/2021 Document Reviewed: 04/27/2021 [employer] Patient Education 2021 [email or web address]. 11/16/2024 14:35:49 Cancer Screening for Males Cancer Screening for [...] if anything looks unusual. Males with a jexqev-elmy-lwgrdc risk for skin cancer may want to see a skin former (roll up operator) for an annual body check. Where to find more information [employer]: cancer.org Centers for Disease Control and Prevention: cdc.gov National Cancer [employer]: cancer.gov Contact a health care provider if: [...] provider. Document Revised: 05/20/2023 Document Reviewed: 12/02/2022 [employer] Patient Education 2023 [email or web address]. Follow Up Care 10/26/2024 10:10:17 With:ARLENE CASILLAS, Katia Hall, URL Address: [facility] [address] , [place] [address]- When: Unknown [facility] 11-16-2024 Note Patient Education Oncology Cancer Screening for [...] if anything looks unusual. Males with a mtkryn-lsrj-qvaora risk for skin cancer may want to see a skin former (dermatologi (more content not included)... [facility] 11-09-2024 History of Present illness Narrative Images from [...] follow through with treatment plans established today. Dementia/Memory Loss: He/she is accompanied by spouse. Primary caregiver is patient and . Patient lives with their spouse. Pt states the psychiatrist put him on abilify and she stated he was doing well but wasn't sleeping and he left the home in the middle of the night and they had to call the police. He had a rx of seraquil from [facility] and she put him back on that. He is sleeping better and she called psychiatry to let them know this and ask for a refill but she has not heard back. She states his hallucinations are better but he still has some. In entering the room the patient does not normally wear shorts but he has them on today. His right leg is very red from mid calf down and is swollen as well. His states some of the redness was there previously but it is worse lately and she has been applying lotion like EH had previously told her. He does not wear compression hose. She states it is a lot warmer to the touch than it was this morning when he put the lotion on it. He denies any pain with some prompting to answer the question. Review of Systems Per his there are no specific changes in his breathing. Objective The patient appears his usual self. He does have hearing impairment but with an extremely elevated volume in a decrease in the pitch of my voice he can hear me. It is bad enough that I can not sustain this for a length of time. I can do this for intermittent questions. He can read his 's lips. Some of the questions he actually can answer and a basic manner. Other questions or more rambling and off subject and do not make much sense. Both legs have signs of venous insufficiency with some bulging veins, varicose veins, hemosiderin deposition, edema. The right leg is more edematous than the left but only a little bit. The area that she is calling redness is really more of violaceous with a little bit of red near the edge consistent with stasis dermatitis rather than cellulitis. There are no palpable cords in it appears the Homans sign is negative. 11/19/2023 11:19 AM 01/29/2024 1:36 PM 02/17/2024 11:52 AM 03/18/2024 11:18 AM 05/13/2024 2:38 PM 09/21/2024 2:08 PM 10/14/2024 3:01 PM Vitals BMI 28.63 kg/m2 28.63 kg/m2 28.63 kg/m2 28.63 kg/m2 26.06 kg/m2 26.06 kg/m2 BSA (m2) 2.3 m2 2.3 m2 2.3 m2 2.3 m2 2.19 m2 2.19 m2 Systolic 126 118 122 98 Diastolic 72 70 74 68 Heart Rate 73 85 82 77 SpO2 98 % 99 % 97 % 97 % Height (in) 6' 2 6' 2 6' 2 6' 2 6' 2 6' 2 Weight (lb) 223 223 223 223 203 203 Visit [...] mg by mouth at bedtime cephalexin (Keflex) 250 MG capsule Take 250 mg by mouth 3 (three) times a week On Friday, Friday, Friday clopidogrel (Plavix) 75 MG tablet Take 75 mg by mouth Daily donepezil (Aricept) 10 MG tablet Take 1 tablet (10 mg) by mouth at bedtime 30 tablet 5 ferrous sulfate 325 (65 Fe) MG tablet [...] (5 mg) before bedtime. 60 tablet 11 metoprolol succinate XL [...] Take 25 mg by mouth at bedtime Spacer/Aero-Holding Chambers (BreatheRite Dulce Spacer Adult) misc [...] 2 days a week (Friday and ) No current facility-administered medications on file prior to visit. 1. Venous insufficiency of both lower extremities (Primary) We discussed and sometimes he will wear the compression hose and sometimes not. I discussed her with her with his dementia I would not pick a fight on the days that she can not. If she can get him into his recliner with his feet elevated that will have to suffice. 2. Venous stasis dermatitis of right lower extremity Chronic problem with acute exacerbation. We discussed and she has a sydm-qic-gajemhx hydrocortisone cream at home. For now I have asked her to read that into the area twice daily. After an absorbed she can put a moisturizer code over the top and that will help to drive it into the skin. We discussed signs of ulceration. She understands if he starts to get an ulceration she is to seek medical care either us or in urgent care. 3. 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 disturbance, psychotic disturbance, mood disturbance, or anxiety (HCC) Chronic problem that does seem to be worsening. Her psychiatrist is managing the medications for the mood. She asked me a couple of questions and I gave her my opinion but deferred any changes to her psychiatrist. After discussing we have mutually agreed to increase the donepezil to 2 tablets. I discussed with her that sometimes this can cause some agitation so she will have to be careful with this. If she gets into agitation she can certainly contact me but stopped the increased Dosing. If the increase in medication is not significantly helpful, then we will consider adding memantine. - donepezil (Aricept) 10 MG tablet; Take 2 tablets (20 mg) by mouth at bedtime documented in this encounter [facility] 10-14-2024 History of Present illness Narrative Images from the original note were not included. Patient ID: Alex Anderson is a 78 y.o. male who presents for: Flowsheet Row Patient Outreach from 10/06/2024 in [facility] with Joi Zhang LPN [facility] Information ED, Hospital or Mcfp Facility Discharge? Hospital Patient has been contacted within two business days of discharge Yes Diagnosis Community acquired pneumonia of lower lobe of lung , Lower extremity edema Edema, Delirium due to another medical condition Discharge Date 10/05/24 Discharged To: Home Setting Discharge [facility] Engagement Call Start Time 1207 Admission [...] have any upcoming specialty appointments? 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 yes What is the home health agency? [facility] Has home health visited the patient [...] in ER and Hospital. Pt arrived to [facility] ER d/t [facility] crisis line stating to go because of pts increased delusions, hallucinations, and suicidal ideation. found pocket knife on pt as well. Pt transferred to [facility]. Pt positive for metapneumovirus, Urine cultures came back positive for Klebsiella and Enterobacter cloacae. Pt is to Follow-up with psychiatry [...] through with treatment plans established today. He also has hearing impairment in his able to read her lips. He has never wanted any referrals or other assistance associated with his hearing loss. Review of Systems She notes increased confusion, delusions, and hallucinations. Seeing people and things that are not actually there. Objective The patient is pleasant and in no acute distress The patient has good eye contact and clear speech He has no signs of respiratory distress. When he does speak he can speak full sentences. For him his breath sounds are actually fairly symmetrical although decreased diffusely. No specific rhonchi or evaluated today and no specific wheezing is noted. [...] mg) by mouth at bedtime (Patient not taking: Reported on 10/06/2024) 15 tablet 0 atorvastatin (Lipitor) [...] (5 mg) before bedtime. 60 tablet 11 metoprolol succinate XL [...] transition of care note is reviewed. a jsvp-oi-zjoa evaluation is done today. Medical decision making is complex in degree. 3. Lower extremity edema Chronic problem, stable, we will monitor at this time. 4. Delirium due to another medical condition Chronic problem that is currently stable and manageable. It was worse when he was acutely ill. No further adjustments. documented in this encounter [facility] 10-13-2024 History of Present illness Narrative Reviewed the procedure note. Updated the medical record. documented in this encounter [facility] 10-08-2024 History of Present illness Narrative Patient ID: lAex Anderson is a 78 y.o. male who presents for New Patient Visit (Patient is present to establish care . Patient was referred by cardiology for Paroxysmal atrial fibrillation. /). History of Present Illness Alex Anderson is an 78 year old male with chronic kidney disease and dementia who presents for evaluation of a defibrillator placement. He is accompanied by his daughter and , who is his primary caregiver. He was referred by Dr. Al for evaluation of his chronic heart disease and potential defibrillator placement. He experienced a heart attack in December 2023 and is currently on metoprolol and amiodarone. His blood pressure limits and allows for the lowest tolerable doses of HF medications. He has atrial fibrillation and is on warfarin, with an INR of 2.9. 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 He has chronic kidney disease, stage 3B, which may impact cardiovascular treatment options. He is currently on Bactrim for an infection, though the presence of an active infection is unclear. He reports no pain and improved breathing but feels unsteady on his feet. He is being evaluated for dementia, which has worsened due to recent infections. He is on an Exelon patch and Seroquel, which have helped manage his symptoms. He receives home health assistance and family support. PMHx: See list PSHx: See list Social Hx: Social History[1] Family Hx: Family History[2] Review of Systems Constitutional: Negative for malaise/fatigue. Cardiovascular: Negative. Negative for claudication, cyanosis, irregular heartbeat, leg swelling, near-syncope, orthopnea, paroxysmal nocturnal dyspnea and syncope. Respiratory: Negative for cough, shortness of breath, snoring and wheezing. All other systems reviewed and are negative. Objective BP 80/58 (BP Location: Left arm, Patient Position: Sitting) Pulse 75 Ht 1.88 m (6' 2 ) Wt 90.7 kg (200 lb) BMI 25.68 kg/m LABS: CBC: No results found for: WBC , RBC , HGB , HCT , MCV , MCH , MCHC , RDW , PLT , MPV CBC with Differential: No results found for: WBC , RBC , HGB , HCT , PLT , MCV , MCH , MCHC , RDW , NRBC , SEGSPCT , BANDSPCT , BLASTSPCT , METASPCT , LYMPHOPCT , PROMYELOPCT , MONOPCT , MYELOPCT , EOSPCT , BASOPCT , MONOSABS , LYMPHSABS , EOSABS , BASOSABS , DIFFTYPE CMP: No results found for: NA , K , CL , CO2 , BUN , CREATININE , AGRATIO , GLUCOSE , GLU , PROT , CALCIUM , BILITOT , ALKPHOS , AST , ALT BMP: No results found for: NA , K , CL , CO2 , BUN , CREATININE , CALCIUM , GLUCOSE , GLU Magnesium:No results found for: MG Constitutional: Appearance: Normal and healthy appearance. Well-developed, overweight and not in distress. Neck: Vascular: No JVR. JVD normal. Pulmonary: Effort: Pulmonary effort is normal. Breath sounds: Normal breath sounds. No wheezing. No rhonchi. No rales. Chest: Chest wall: Not tender to palpatation. Cardiovascular: PMI at left midclavicular line. Normal rate. Regular rhythm. Normal S1. Normal S2. Murmurs: There is no murmur. No gallop. No click. No rub. Pulses: Intact distal pulses. Edema: Peripheral edema absent. Abdominal: Tenderness: There is no abdominal tenderness. Musculoskeletal: Normal range of motion. General: No tenderness. Skin: General: Skin is warm and dry. Neurological: General: No focal deficit present. Mental Status: Alert and oriented to person, place and time. Device check. See scanned. ECG. See scanned. Assessment & Plan Ischemic cardiomyopathy. LVEF less than 25%. Primary prevention ICD. Given limitation of vascular chair with chronic kidney disease and possible need for dialysis in the future, would avoid using upper extremities for access for defibrillator. Plan for EV ICD. Brochure reviewed. Shared decision making performed. Color decision tool. Informed consent obtained by patient's and daughter who is POA. We also discussed that DNR will be revoked during procedure and if issues that are reversible postprocedure related to the procedure. Atrial Fibrillation Managed with warfarin. INR at 2.9. Considered holding warfarin and bridging with Lovenox to minimize bleeding risk for defibrillator procedure. - Hold warfarin for 5 days prior to procedure. - Administer Lovenox subcutaneously twice daily for 3 days prior to procedure and once on the day before the procedure. Peripheral arterial disease with Stent and upcoming stent Currently on Plavix. Coordination with vascular surgery needed for Plavix management including holding Plavix 1 week before defibrillator procedure. Chronic Kidney Disease, Stage 3B Stage 3B. Potential future dialysis if function declines to stage 5. Considered subcutaneous defibrillator to avoid venous access issues. 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 Scheduled for stent placement to prevent rupture and limb loss. Dementia with Behavioral Disturbance Recent hospitalization for cognitive decline and hallucinations. Managed with Exelon patch and Seroquel, showing improvement. Home health assistance and family support in place. Bladder and Colonic Polyps Presence noted. He refused further evaluation. Goals of Care Discussed in context of defibrillator placement. Considered quality of life and potential future interventions. Family holds healthcare power of senior trial attorney. DNR status temporarily revoked during procedure. Follow-up Coordination with vascular surgery for Plavix management and defibrillator procedure scheduling. Preoperative blood work planned. - Coordinate with vascular surgery for timing of Plavix hold. - Schedule defibrillator procedure with cardiothoracic surgery and anesthesia teams. - Perform preoperative blood work locally and type and screen on site prior to procedure. Counseled greater than 50% of the visit. The patient, his , and his daughter who is POA, and I discussed arrhythmia, ECG, shared decision making, [place] [facility] decision tool, informed consent, treatment options, risk, benefits, and imponderables. Lifestyle modifications reviewed. All questions answered. Patient appreciative of care Assessment & Plan Cardiomyopathy, ischemic Encounter to establish care with new provider Encounter to discuss treatment options Encounter to discuss test results Encounter for medication review and counseling High risk medication use ST elevation myocardial infarction (STEMI), unspecified artery (Multi) S/P PTCA (percutaneous transluminal coronary angioplasty) Paroxysmal atrial fibrillation (Multi) Former smoker Body mass index (BMI) 25.0-25.9, adult Pre-operative cardiovascular examination ISY LPN, AM SCRIBING FOR AND IN THE PRESENCE OF DR. RUBY MONTANA MD, FACC, FACP, RS I, , personally performed the services described in the documentation as scribed by the nurse in my presence, and confirm it is both accurate and complete. This medical note was created with the assistance of artificial intelligence (AI) for documentation purposes. The content has been reviewed and confirmed by the healthcare provider for accuracy and completeness. Patient consented to the use of audio recording and use of AI during their visit. Total, 94, inclusive of review of cardiology notes, and echocardiogram, DNR and POA forms, shared decision making, [place] [facility] decision tool, and informed consent [1] Social History Socioeconomic History Marital status: Tobacco Use Smoking status: Former Types: Cigarettes Smokeless tobacco: Never Substance and Sexual Activity Alcohol use: Never Drug use: Never Social Drivers of Health Financial Resource Strain: Low Risk (12/31/2023) Received from [facility] Overall Financial Resource Strain (CARDIA) Difficulty of Paying Living Expenses: Not hard at all Food Insecurity: Patient Unable To Answer (10/02/2024) Received from [facility] Hunger Vital Sign Worried About Running Out of Food in the Last Year: Patient unable to answer Ran Out of Food in the Last Year: Patient unable to answer Transportation Needs: Patient Unable To Answer (10/02/2024) Received from [facility] PRAPARE - Transportation Lack of Transportation (Medical): Patient unable to answer Lack of Transportation (Non-Medical): Patient unable to answer Physical Activity: Inactive (12/31/2023) Received from [facility] Exercise Vital Sign Days of Exercise per Week: 0 days Minutes of Exercise per Session: 0 min Stress: Stress Concern Present (12/31/2023) Received from [facility] [employer] - Occupational Stress Questionnaire Feeling of Stress : To some extent Social Connections: Moderately Isolated (12/31/2023) Received from [facility] Social Connection and Isolation Panel [NHANES] Frequency of Communication with Friends and Family: More than three times a week Frequency of Social Gatherings with Friends and Family: More than three times a week Attends L[employer] Day Services: Never Active Member of Clubs or Organizations: No Attends Club or Organization Meetings: Never Marital Status: Intimate Partner Violence: Not At Risk (12/31/2023) Received from [facility] Humiliation, Afraid, Rape, and Kick questionnaire Fear of Current or Ex-Partner: No Emotionally Abused: No Physically Abused: No Sexually Abused: No Housing Stability: Patient Unable To Answer (10/02/2024) Received from [facility] Housing Stability Vital Sign Unable to Pay for Housing in the Last Year: Patient unable to answer Homeless in the Last Year: Patient unable to answer [2] Family History Problem Relation Name Age of Onset Other (bowel obstruction) Mother Brain cancer Father documented in this encounter [facility] Work Phone: 10-08-2024 Instructions Sy Lombardo LPN - 10/08/2024 3:00 PM EDT Images from the original note were not included. Vascular surgery needs to tell us when he can come off Plavix, and for how long. Please call us as soon as you have this answer, , option #4. Pre-Procedure Patient Information You have been scheduled for: EV- ICD Implant At: [facility] With: Dr. Montana and Dr. Capone Date of procedure: 1. Please have transportation to and from the hospital. While you should plan for same-day discharge there is a possibility you will need to stay overnight. 2. You will receive a call from the hospital 24 - 72 hours before your procedure providing you with fasting instructions, procedure location detail, and time of arrival. If you have not received a call from the hospital by 6 pm the day before your scheduled procedure, please call [phone]. 3. Please bring a current list of medications with you to the hospital. 4. Medications to hold: HOLD Metoprolol 2 days prior HOLD Amiodarone 5 days prior Plavix will be held for one week prior IF PERMISSIBLE FROM VASCULAR SURGERY HOLD Warfarin 3 days prior. 2 days prior give 1 injection of Lovenox into the abdomen in the morning and in the evening. 1 day prior give one injection into the abdomen in the morning only. No injection the night prior. No injection the morning of the procedure. 5. Nothing to eat after midnight before the procedure. OK to take morning medications, with above exceptions, the day of the procedure with a small sip of water. 6. Please bring to our attention if you have any contrast, latex or metal allergies. 7. Please have your blood work as instructed completed at least a day before your procedure. 8. If you have any questions, please contact the office at [phone]. Follow up 1 week after for a wound care check appointment documented in this encounter [facility] Work Phone: 10-05-2024 History of Present illness Narrative AVS reviewed with and patient. All questions answered. Leg bag attached to villarreal. IV removed, no complications. Waiting for meds to bed to be delivered. [facility] PROGRESS NOTE 10/05/2024 9:55 AM Name: Alex Anderson Acct: [id number] Room: IP Day: 3 Admit Date: 10/02/2024 10:30 AM PCP: Stanley Emerson MD Code Status: DNR-CCA Subjective: C/C: No chief complaint on file. Interval History Status: improved. This morning patient is ANO x 3, able to say his name, date, location, family member names. Needs some redirection but overall pleasant, reports feeling well. Denies shortness of breath, pain. Denies seeing or hearing other voices at this time. Reports he would feel safe at home and has a family member who will be with him. Has indwelling Villarreal urinating okay and BM yesterday. Patient's urine culture sensitivities are in and will be reviewed from [facility]. Brief History: 78 yo male admitted to the hospital for the management of pneumonia, UTI, altered mental status. Patient has past medical history of endorses CAD with stent placement to one of the main arteries last December, A-fib on Coumadin and amiodarone, CHF last ejection fraction on echo 30-35%, CKD stage III, indwelling Villarreal catheter due to enlarged prostate and retention of urine, COPD, anemia, AAA post stent, hypothyroidism. Per [facility] records patient was brought in to [place] ED by due to increasing delusions, hallucinations with suicidal ideation. Patient has been having declining mental status for the past 6 months but worsened over the past 2 weeks. Patient's found a knife in his pocket unsure how he obtained it. He has been reporting seeing people out to get him, has been trying to get into their left door which contains guns. Has not threatened but she is increasingly concerned for safety due to current status. In the afternoon 10/01 ED, chest x-ray completed showing right lower lobe pneumonia, mild enlarged heart size. CT head no acute intracranial abnormality. Labs significant for no leukocytosis but BUN 26 creatinine 2.01. Urinalysis positive for nitrates and moderate bacteria small leukocyte esterase. Given a fluid bolus, azithromycin and 1 dose of IV Rocephin. Drug screening positive for tricyclic antidepressant. Transferred to [facility] for psychiatric assessment and potentially [facility] admission following medical clearance. On admit, patient is ANO x 2, knows his name date, birthday, president. Able to list some family members. Is aware he is in a hospital in [place]. He endorses increasing bilateral lower extremity weakness for past few days. When asked why he endorses this is likely due to his blood thinner medication. Asking him what his blood thinner medication is for he says for heartburn. Denies any chest pain, shortness of breath, abdominal pain, trouble with urination. Patient denies any visual or auditory hallucinations. Denies any suicidal ideation, denies any intent to harm others but does endorse that hopefully does not have any thoughts to harm others in a later statement. He does seem to have some disorganized thought process, potentially responding to internal stimuli. Able to redirect. Review of Systems: Review of Systems Constitutional: Negative for appetite change. Respiratory: Negative for chest tightness and shortness of breath. Cardiovascular: Positive for leg swelling (improving). Negative for chest pain. Gastrointestinal: Negative for abdominal pain. Genitourinary: Negative for difficulty urinating. Neurological: Negative for weakness. Medications: Allergies: No Known Allergies Current Meds: Scheduled Meds: warfarin 2 mg Oral Once rivastigmine 1 patch TransDERmal Daily sodium chloride flush 5-40 mL IntraVENous 2 times per day amiodarone 200 mg Oral Daily atorvastatin 80 mg Oral Nightly clopidogrel 75 mg Oral Daily methIMAzole 5 mg Oral BID ferrous sulfate 325 mg Oral BID WC metoprolol succinate 25 mg Oral Daily warfarin placeholder: dosing by pharmacy Oral RX Placeholder cefTRIAXone (ROCEPHIN) IV 1,000 mg IntraVENous Q24H furosemide 40 mg Oral Daily QUEtiapine 25 mg Oral Nightly Continuous Infusions: sodium chloride PRN Meds: melatonin, sodium chloride flush, sodium chloride, potassium chloride OR potassium alternative oral replacement OR potassium chloride, magnesium sulfate, ondansetron OR ondansetron, polyethylene glycol, acetaminophen OR acetaminophen, albuterol, nitroGLYCERIN Data: Past Medical History: has no past medical history on file. Social History: reports that he has quit smoking. His smoking use included cigarettes. He does not have any smokeless tobacco history on file. He reports that he does not use drugs. Family History: No family history on file. Vitals: BP 107/67 Pulse 66 Temp 98.1 F (36.7 C) (Oral) Resp 18 Ht 1.88 m (6' 2 ) Wt 79.4 kg (175 lb) SpO2 94% BMI 22.47 kg/m Temp (24hrs), Av.9 F (37.2 C), Min:98.1 F (36.7 C), Max:99.7 F (37.6 C) No results for input(s): POCGLU in the last 72 hours. I/O(24Hr): Intake/Output Summary (Last 24 hours) at 10/05/2024 0955 Last data filed at 10/05/2024 0552 Gross per 24 hour Intake -- Output 2050 ml Net -2050 ml Labs: @[email or web address]@ Lab Results Component Value Date/Time SPECIAL Site: Urine 10/02/2024 03:43 PM Lab Results Component Value Date/Time CULTURE GRAM NEGATIVE RODS >100,000 CFU/ML (A) 10/02/2024 03:43 PM @[email or web address]@ Radiology: Vascular duplex lower extremity venous bilateral Result Date: 10/04/2024 No evidence of deep vein or superficial vein thrombosis in the right lower extremity. Vessels demonstrate normal compressibility, color filling, and phasic and spontaneous flow. No evidence of deep vein or superficial vein thrombosis in the left lower extremity. Vessels demonstrate normal compressibility, color filling, and phasic and spontaneous flow. Physical Examination: Physical Exam Cardiovascular: Rate and Rhythm: Normal rate and regular rhythm. Pulmonary: Effort: Pulmonary effort is normal. Breath sounds: Normal breath sounds. Abdominal: General: There is distension. Palpations: Abdomen is soft. Musculoskeletal: Right lower leg: Edema (chronic) present. Skin: General: Skin is warm. Neurological: Mental Status: He is alert. Motor: No weakness. Comments: ANO x 3 Identifiers name, day of week, place correctly Assessment: Primary Problem Community acquired pneumonia of lower lobe of lung Active Hospital Problems Diagnosis Date Noted Acute cystitis without hematuria [N30.00] 10/04/2024 DNR (do not resuscitate) discussion [Z71.89] 10/04/2024 Palliative care encounter [Z51.5] 10/04/2024 Goals of care, counseling/discussion [Z71.89] 10/04/2024 Chronic heart failure (HCC) [I50.9] 10/04/2024 Acute metabolic encephalopathy [G93.41] 10/04/2024 Delirium due to another medical condition [F05] 10/03/2024 Community acquired pneumonia of lower lobe of lung [J18.9] 10/02/2024 Lower extremity edema [R60.0] 10/02/2024 Plan: Altered mental status, worsening hallucinations - dementia versus delirium -Patient transferred from [facility] due to declining mental status and increasing delusions and hallucinations. Per chart review patient's was increasingly concerned for the last 2 weeks he has had more hallucinations and delusions, concerned of people coming to find him. Recently obtained a pocket knife that she is unsure how he got. Per chart review endorsed some suicidal ideation -CT head in ED [place] 10/01 reviewed no acute intracranial abnormality -UDS 10/01 [place] positive for tricyclic's -On admit patient denies any hallucinations, suicidal ideation or homicidal ideation but appears to have a disorganized thought process, responding inaccurately about some of his history and health, potentially responding to internal stimuli -Patient has underlying pneumonia and UTI which are causes for delirium but based off chart review history of altered mentation timeline suggests other underlying psychiatric including dementia -Recommend completing neuropsych assessment at this time outpatient -On Abilify nightly per medication review -> switch to Seroquel nightly/olanzapine twice daily as needed for agitation -Bedside Sitter -Psych consult, appreciate recommendations -Neurology consulted for suspected underlying dementia, no prior workup, appreciate recommendations Pneumonia, COPD - chronic smoker - Chest x-ray completed showing right lower lobe pneumonia, mild enlarged heart size. - 1 dose azithromycin given in ED 10/01 per charts - Patient is denying any shortness of breath or chest pain at this time, heartedly no history of COPD and no wheezing on physical exam - Albuterol as needed, no wheezing on physical exam and satting appropriately on room air - Complete azithromycin, Rocephin - Pneumonia workup - positive for human metapneumovirus UTI with chronic indwelling Villarreal, CKD stage IIIb - History of bladder cancer, indwelling Villarreal due to enlarged prostate and urinary retention, chronic smoker - CKD stage IIIb follows with nephrology - Patient denies any pain, increased frequency with urination - In ED at [place], urinalysis small leukocyte esterase moderate bacteria 10/01; BUN 26 creatinine 2.01 -> creatinine 1.9 -[place] urine culture received 10/05. Positive for Klebsiella and Enterobacter cloacae. Enterobacter was resistant to Rocephin. Both are sensitive to ciprofloxacin, Levaquin, Bactrim. Will discuss with pharmacy but ciprofloxacin appears to potentially be best option with patient's underlying CKD and prolonged Qtc 471 - Repeat urinalysis leukoesterase, urine culture pending - IV Rocephin and IV fluid bolus. 1 dose given in ED 10/01 per charts - Patient likely around baseline BUN/creatinine levels due to CKD status. Discontinue gentle fluids due to decreased ejection fraction - IV Rocephin will need to be transitioned due to sensitivities - Urology consulted, appreciate recommendations - Replace Villarreal here, chart review unsure if it was replaced at [place] A-fib - Patient had some runs of A-fib in ED yesterday - History of A-fib - Continue amiodarone, Toprol, warfarin for A-fib Right lower leg edema - On chart review chronic right lower leg edema - Continue to monitor, discussed with attending if need for Doppler - Continue home medication Lasix - Doppler pending - Follows with vascular outpatient CAD, status post stent December 2023 - Follows with cardiology out patient - On Plavix daily - Nitro as needed for chest pain - On Lipitor high-dose CHF, rEF - Follows with cardiology out patient - Echo 07/2024 30 to 35% ejection fraction - Continue home medication Lasix, Toprol Hyperthyroidism - Patient on methimazole 5 mg twice daily - TSH 1.29 WNL Anemia - History of anemia, on iron BID - Hemoglobin 9.9 -> 11 from patient's baseline - Likely dilutional no dark stools or sig GI bleed hx, anemia workup pending - Iron 18, 1 dose Venofer given improvement 103 AAA s/p stent - Patient follows with vascular outpatient DVT prophylaxis: On Coumadin GI prophylaxis: Not indicated at this time Diet: Regular diet, safety tray Code: DNR CCA no intubation Discharge planning: Home with home health per family To be discussed with attending Dr.Grewal Waqar Hadley MD 10/05/2024 9:55 AM Attending Physician Statement I have discussed the care of Alex Anderson and I have examined the patient myself and taken ROS and HPI, including pertinent history and exam findings, with the resident. I have reviewed the diaz elements of all parts of the encounter with the resident. I agree with the assessment, plan and orders as documented by the resident. Urine culture from [facility] growing Klebsiella and Enterobacter sensitive to Cipro. Chronic Villarreal. Follow-up urology as outpatient. CT head from [place], negative. Varicose veins, vascular surgery follow-up as outpatient. Hypokalemia- replaced Oral potassium replaced. Pharmacy Note Warfarin Consult follow-up Recent Labs 10/05/24 0608 INR 2.0 Recent Labs 10/03/24 0623 10/04/24 0640 10/05/24 0608 HGB 9.9* 11.2* 11.5* HCT 33.1* 38.7* 35.3* PLT 165 195 173 Current warfarin drug-drug interactions: amiodarone, methimazole Date INR Dose 10/03 1.7 4 mg 10/04 1.7 4 mg 10/05 2.0 2 mg Notes: INR therapeutic today after booster doses previous two days. Will resume 2 mg dose tonight Daily PT/INR while inpatient. Satish Gallardo PharmD, [facility] 10/05/2024 8:05 AM [facility] OCCUPATIONAL THERAPY MISSED TREATMENT NOTE INPATIENT Date: 10/04/24 Patient Name: Alex Anderson Room: : 1945 (78 y.o.) Gender: male REASON FOR MISSED TREATMENT: 10/04/24 - Other - Palliative Care WHEEL WORKER in room initially. Checked back at 1430, with pt working with physical therapy. PCT reported needing to get EKG once pt has completed PT. OT will continue to follow and check back as time permits. 1352; 1430 Patient Alert and Oriented x 4, per Jessy CHAN. Bedside director food safety removed, Telesitter placed at bedside. Chronic villarreal catheter changed. 20 Fr coude. Department of Psychiatry Consult Service Psychiatric Assessment PROGRESS NOTE REASON FOR CONSULT: dementia, worsening delusions CONSULTING PHYSICIAN: Waqar Hadley History obtained from: Patient, EMR, treatment team FOLLOW UP: 10/04/2024 patient was seen for follow-up assessment today. His daughter and were not present today. Patient was awake and oriented to his name, the hospital, year. Patient knew his and daughter's name as well. He was pleasant and cooperative during our encounter. He was calm and remained in behavioral control. Patient still had intermittent disorganized thought during our conversation. Patient did periodically make illogical statements in response to resume writer's assessment questions and thought process was somewhat tangential. For example the patient noted hearing voices coming from the closet this morning. Furthermore patient states he does not go to school here and does not know why he is on campus . He still admits to sometimes seeing people outside his window. He is taking Seroquel at night. HISTORY OF PRESENT ILLNESS: The patient is a 78 y.o. male with a reported psychiatric history of dementia, but is not currently prescribed any neurocognitive medications. Only documented history of dementia is found on 09/20 when patient's called PCP stating that Alex has been exhibiting increased confusion and hallucinations. Patient initially presented to the ED from [facility]. He was presented to [facility] for potential admission, but declined as his symptoms were consistent with delirium. Noted he was placed on an application for emergency admission by [facility] secondary to patient'sbehavior at home. per documentation, he was attempting to get access to his locked gun safe as he expressed belief that he and his were not safe. He also had a knife in his pocket in the ED, but expressed not knowing why that was there. His reports that he has been responding to visual hallucinations that have been worsening over the last 2 weeks. Per review of labs, UA indicative of moderate bacteria and chest x-ray showing right lower lobe pneumonia. Given fluid bolus, azithromycin and 1 dose of IV Rocephin. On assessment today, patient is sitting up in bed. He is coughing. He is looking at the window and endorses seeing his family members outside. He is actively responding to visual hallucinations. He has oriented to self, month, and location. He however has no understanding as to why he is in the hospital. He states that he is currently and has 2 adult children. Has more difficulty identifying recent social history and does confabulate at times. Attempted to discuss concerns regarding patient feeling unsafe in his house. He states that he was standing outside and saw the FBI go to his neighbors house secondary to the neighbor using drugs. He denies any suicidal or homicidal intent, but does express that he would protect him and his if necessary. Alex denies feeling that his mind is playing tricks on him. Denies any history of hallucinations in the past. He does state that he has struggled with depression previously, but denies feeling lower down recently. He denies any history of suicide attempts. Patient has never previously been admitted to an inpatient psychiatric facility. He is not linked with community mental health services. His has indicated that she would like him to see Dr. Mcarthur in [place]. Per review of documentation, patient medications managed by his PCP. Currently prescribed aripiprazole 2 mg. Patient does have a history of A-fib. Most recent EKG reviewed. Qtc 487. The patient is not currently receiving care for the above psychiatric illness. Past Psychiatric History: Prior Diagnosis: Dementia Outpatient psychiatric provider: None, medications managed by PCP. Psychiatric Hospitalization: no Hx of Suicidal Attempts: no Hx of violence: no Past psychiatric medications includes: Aripiprazole 2 mg Adverse reactions from psychotropic medications: none Substance Abuse History: Denies recreational substance and alcohol use Social History: RESIDENCE: lives at home with his : reports for many years CHILDREN: has an adult son and daughter OCCUPATION: retired Past Medical History: No past medical history on file. Past Surgical History: No past surgical history on file. Family Medical and Psychiatric History: No family history on file. Medications Prior to Admission: Medications Prior to Admission: amiodarone (CORDARONE) 200 MG tablet, Take 1 tablet by mouth daily atorvastatin (LIPITOR) 80 MG tablet, Take 1 tablet by mouth daily clopidogrel (PLAVIX) 75 MG tablet, Take 1 tablet by mouth daily ferrous sulfate (IRON 325) 325 (65 Fe) MG tablet, Take 1 tablet by mouth daily (with breakfast) furosemide (LASIX) 40 MG tablet, Take 1 tablet by mouth daily methIMAzole (TAPAZOLE) 5 MG tablet, Take 1 tablet by mouth 2 times daily metoprolol succinate (TOPROL XL) 25 MG extended release tablet, Take 1 tablet by mouth daily nitroGLYCERIN (NITROSTAT) 0.4 MG SL tablet, Place 1 tablet under the tongue every 5 minutes as needed warfarin (COUMADIN) 2 MG tablet, Take 0.5 tablets by mouth daily Allergies: Patient has no known allergies. Lifetime Psychiatric Review of Systems Obsessions and Compulsions: Denies Dennise or Hypomania: Denies Hallucinations: endorses visual Panic Attacks: Denies Delusions: endorses paranoia Phobias: Denies Trauma: Denies Prior to Admission medications Medication Sig Start Date End Date Taking? Authorizing Provider amiodarone (CORDARONE) 200 MG tablet Take 1 tablet by mouth daily 02/10/24 Anali Hillman MD atorvastatin (LIPITOR) 80 MG tablet Take 1 tablet by mouth daily 01/16/24 Anali Hillman MD clopidogrel (PLAVIX) 75 MG tablet Take 1 tablet by mouth daily 03/05/24 Anali Hillman MD ferrous sulfate (IRON 325) 325 (65 Fe) MG tablet Take 1 tablet by mouth daily (with breakfast) Anali Hillman MD furosemide (LASIX) 40 MG tablet Take 1 tablet by mouth daily 02/04/24 Anali Hillman MD methIMAzole (TAPAZOLE) 5 MG tablet Take 1 tablet by mouth 2 times daily 07/29/24 07/29/25 Anali Hillman MD metoprolol succinate (TOPROL XL) 25 MG extended release tablet Take 1 tablet by mouth daily 05/21/24 05/21/25 Anali Hillman MD nitroGLYCERIN (NITROSTAT) 0.[address] 1 tablet under the tongue every 5 minutes as needed 01/16/24 Anali Hillman MD warfarin (COUMADIN) 2 MG tablet Take 0.5 tablets by mouth daily 04/21/24 Anali Hillman MD Medications: Current Facility-Administered Medications: warfarin (COUMADIN) tablet 4 mg, 4 mg, Oral, Once sodium chloride flush 0.9 % injection 5-40 mL, 5-40 mL, IntraVENous, 2 times per day sodium chloride flush 0.9 % injection 5-40 mL, 5-40 mL, IntraVENous, PRN 0.9 % sodium chloride infusion, , IntraVENous, PRN potassium chloride (KLOR-CON M) extended release tablet 40 mEq, 40 mEq, Oral, PRN OR potassium bicarb-citric acid (EFFER-K) effervescent tablet 40 mEq, 40 mEq, Oral, PRN OR potassium chloride 10 mEq/100 mL IVPB (Peripheral Line), 10 mEq, IntraVENous, PRN magnesium sulfate 2000 mg in water 50 mL IVPB, 2,000 mg, IntraVENous, PRN ondansetron (ZOFRAN-ODT) disintegrating tablet 4 mg, 4 mg, Oral, Q8H PRN OR ondansetron (ZOFRAN) injection 4 mg, 4 mg, IntraVENous, Q6H PRN polyethylene glycol (GLYCOLAX) packet 17 g, 17 g, Oral, Daily PRN acetaminophen (TYLENOL) tablet 650 mg, 650 mg, Oral, Q6H PRN OR acetaminophen (TYLENOL) suppository 650 mg, 650 mg, Rectal, Q6H PRN albuterol (PROVENTIL) (2.5 MG/3ML) 0.083% nebulizer solution 2.5 mg, 2.5 mg, Nebulization, Q6H PRN amiodarone (CORDARONE) tablet 200 mg, 200 mg, Oral, Daily atorvastatin (LIPITOR) tablet 80 mg, 80 mg, Oral, Nightly clopidogrel (PLAVIX) tablet 75 mg, 75 mg, Oral, Daily nitroGLYCERIN (NITROSTAT) SL tablet 0.4 mg, 0.4 mg, SubLINGual, Q5 Min PRN methIMAzole (TAPAZOLE) tablet 5 mg, 5 mg, Oral, BID ferrous sulfate (IRON 325) tablet 325 mg, 325 mg, Oral, BID WC metoprolol succinate (TOPROL XL) extended release tablet 25 mg, 25 mg, Oral, Daily warfarin placeholder: dosing by pharmacy, , Oral, RX Placeholder cefTRIAXone (ROCEPHIN) 1,000 mg in sterile water 10 mL IV syringe, 1,000 mg, IntraVENous, Q24H furosemide (LASIX) tablet 40 mg, 40 mg, Oral, Daily QUEtiapine (SEROQUEL) tablet 25 mg, 25 mg, Oral, Nightly Physical: Vitals: BP 124/73 Pulse 71 Temp 98.5 F (36.9 C) (Oral) Resp 16 Ht 1.88 m (6' 2 ) Wt 79.4 kg (175 lb) SpO2 95% BMI 22.47 kg/m Qtc: 487 on 09/10/2024 Neuro Exam: Muscle Strength & Tone: full ROM Involuntary Movements: No Mental Status Examination: Level of consciousness: Awake and alert Appearance: hospital attire, lying in bed, fair grooming Behavior/Motor: no abnormalities noted Attitude toward examiner: cooperative, attentive and fair eye contact Speech: Spontaneous, normal rate and volume Mood: Euthymic Affect: e mood congruent Thought processes: Tangential, some confabulation Thought content: denies suicidal ideations denies homicidal ideations Patient is denying perceptual disturbances at time of assessment and is not observed responding to internal stimuli Delusions less evident Cognition: Oriented to self, general location, and general situation Concentration: impaired Memory: impaired recent recall Insight & Judgment: poor DSM-5 DIAGNOSIS: Delirium secondary to pneumonia and UTI Stressors Severity of stressors is moderate Source of stressors include: Other psychosocial and environmental stressors PLAN Admission to [facility] is not warranted No medication changes today Address underlying etiology contributing to delirium - UTI, pneumonia Would recommend patient follow-up with neuropsychiatric services outpatient for neurocognitive testing. Thank you very much for allowing us to participate in the care of this patient. This report has been created using voice recognition software. It may contain minor errors which are inherent in voice recognition technology. I independently saw and evaluated the patient. I reviewed the documentation above . Any additional comments or changes to the documentation are stated below otherwise agree with assessment. The patient was seen [id number]. The patient is pleasant on approach. He has previously been diagnosed with dementia. He does not appear to be in any dementia medications. The patient has loose associations and significant cognitive difficulties. He is participating in physical therapy. His is present at bedside. His does not recall him ever being on medication for dementia. The patient denies any suicidal thoughts PLAN Exelon patch ordered Medications as noted above Attempt to develop insight Psycho-education conducted. Supportive Therapy conducted. Follow-[facility] daily [facility] PROGRESS NOTE 10/04/2024 9:40 AM Name: Alex Anderson Acct: [id number] Room: Day: 2 Admit Date: 10/02/2024 10:30 AM PCP: Stanley Emerson MD Code Status: Full Code Subjective: C/C: No chief complaint on file. Interval History Status: improved. This morning patient is ANO x 3. Needs some redirection but overall pleasant, reports feeling well. Brief History: 78 yo male admitted to the hospital for the management of pneumonia, UTI, altered mental status. Patient has past medical history of endorses CAD with stent placement to one of the main arteries last December, A-fib on Coumadin and amiodarone, CHF last ejection fraction on echo 30-35%, CKD stage III, indwelling Villarreal catheter due to enlarged prostate and retention of urine, COPD, anemia, AAA post stent, hypothyroidism. Per [facility] records patient was brought in to [place] ED by due to increasing delusions, hallucinations with suicidal ideation. Patient has been having declining mental status for the past 6 months but worsened over the past 2 weeks. Patient's found a knife in his pocket unsure how he obtained it. He has been reporting seeing people out to get him, has been trying to get into their left door which contains guns. Has not threatened but she is increasingly concerned for safety due to current status. In the afternoon 10/01 ED, chest x-ray completed showing right lower lobe pneumonia, mild enlarged heart size. CT head no acute intracranial abnormality. Labs significant for no leukocytosis but BUN 26 creatinine 2.01. Urinalysis positive for nitrates and moderate bacteria small leukocyte esterase. Given a fluid bolus, azithromycin and 1 dose of IV Rocephin. Drug screening positive for tricyclic antidepressant. Transferred to [facility] for psychiatric assessment and potentially [facility] admission following medical clearance. On admit, patient is ANO x 2, knows his name date, birthday, president. Able to list some family members. Is aware he is in a hospital in [place]. He endorses increasing bilateral lower extremity weakness for past few days. When asked why he endorses this is likely due to his blood thinner medication. Asking him what his blood thinner medication is for he says for heartburn. Denies any chest pain, shortness of breath, abdominal pain, trouble with urination. Patient denies any visual or auditory hallucinations. Denies any suicidal ideation, denies any intent to harm others but does endorse that hopefully does not have any thoughts to harm others in a later statement. He does seem to have some disorganized thought process, potentially responding to internal stimuli. Able to redirect. Review of Systems: Review of Systems Constitutional: Negative for appetite change. Respiratory: Negative for chest tightness and shortness of breath. Cardiovascular: Positive for leg swelling. Negative for chest pain. Gastrointestinal: Negative for abdominal pain. Genitourinary: Negative for difficulty urinating. Medications: Allergies: No Known Allergies Current Meds: Scheduled Meds: warfarin 4 mg Oral Once iron sucrose 200 mg IntraVENous Once sodium chloride flush 5-40 mL IntraVENous 2 times per day amiodarone 200 mg Oral Daily atorvastatin 80 mg Oral Nightly clopidogrel 75 mg Oral Daily methIMAzole 5 mg Oral BID ferrous sulfate 325 mg Oral BID WC metoprolol succinate 25 mg Oral Daily warfarin placeholder: dosing by pharmacy Oral RX Placeholder cefTRIAXone (ROCEPHIN) IV 1,000 mg IntraVENous Q24H furosemide 40 mg Oral Daily QUEtiapine 25 mg Oral Nightly Continuous Infusions: sodium chloride PRN Meds: sodium chloride flush, sodium chloride, potassium chloride OR potassium alternative oral replacement OR potassium chloride, magnesium sulfate, ondansetron OR ondansetron, polyethylene glycol, acetaminophen OR acetaminophen,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 AM Name: Alex Anderson Acct: [id number] Room: Day: 1 Admit Date: 10/02/2024 10:30 AM PCP: Stanley Emerson MD Code Status: Full Code Subjective: C/C: No chief complaint on file. Interval History Status: improved. This morning patient is ANO x 2. Needs some redirection but overall pleasant, reports feeling well. Denies chest pain, trouble breathing, weakness. Reports feeling improvement in legs. Denies seeing any bad people at this time. Brief History: 78 yo male admitted to the hospital for the management of pneumonia, UTI, altered mental status. Patient has past medical history of endorses CAD with stent placement to one of the main arteries last December, A-fib on Coumadin and amiodarone, CHF last ejection fraction on echo 30-35%, CKD stage III, indwelling Villarreal catheter due to enlarged prostate and retention of urine, COPD, anemia, AAA post stent, hypothyroidism. Per [facility] records patient was brought in to [place] ED by due to increasing delusions, hallucinations with suicidal ideation. Patient has been having declining mental status for the past 6 months but worsened over the past 2 weeks. Patient's found a knife in his pocket unsure how he obtained it. He has been reporting seeing people out to get him, has been trying to get into their left door which contains guns. Has not threatened but she is increasingly concerned for safety due to current status. In the afternoon 10/01 ED, chest x-ray completed showing right lower lobe pneumonia, mild enlarged heart size. CT head no acute intracranial abnormality. Labs significant for no leukocytosis but BUN 26 creatinine 2.01. Urinalysis positive for nitrates and moderate bacteria small leukocyte esterase. Given a fluid bolus, azithromycin and 1 dose of IV Rocephin. Drug screening positive for tricyclic antidepressant. Transferred to [facility] for psychiatric assessment and potentially [facility] admission following medical clearance. On admit, patient is ANO x 2, knows his name date, birthday, president. Able to list some family members. Is aware he is in a hospital in [place]. He endorses increasing bilateral lower extremity weakness for past few days. When asked why he endorses this is likely due to his blood thinner medication. Asking him what his blood thinner medication is for he says for heartburn. Denies any chest pain, shortness of breath, abdominal pain, trouble with urination. Patient denies any visual or auditory hallucinations. Denies any suicidal ideation, denies any intent to harm others but does endorse that hopefully does not have any thoughts to harm others in a later statement. He does seem to have some disorganized thought process, potentially responding to internal stimuli. Able to redirect. Review of Systems: Review of Systems Constitutional: Negative for appetite change (low oral intake this morning). Respiratory: Negative for chest tightness and shortness of breath. Cardiovascular: Positive for leg swelling. Negative for chest pain. Gastrointestinal: Negative for abdominal pain. Genitourinary: Negative for difficulty urinating. Medications: Allergies: No Known Allergies Current Meds: Scheduled Meds: warfarin 4 mg Oral Once sodium chloride flush 5-40 mL IntraVENous 2 times per day amiodarone 200 mg Oral Daily atorvastatin 80 mg Oral Nightly clopidogrel 75 mg Oral Daily methIMAzole 5 mg Oral BID ferrous sulfate 325 mg Oral BID WC metoprolol succinate 25 mg Oral Daily warfarin placeholder: dosing by pharmacy Oral RX Placeholder azithromycin 500 mg IntraVENous Q24H cefTRIAXone (ROCEPHIN) IV 1,000 mg IntraVENous Q24H furosemide 40 mg Oral Daily QUEtiapine 25 mg Oral Nightly Continuous Infusions: sodium chloride PRN Meds: sodium chloride flush, sodium chloride, potassium chloride OR potassium alternative oral replacement OR potassium chloride, magnesium sulfate, ondansetron OR ondansetron, polyethylene glycol, acetaminophen OR acetaminophen, albuterol, nitroGLYCERIN Data: Past Medical History: has no past medical history on file. Social History: reports that he has quit smoking. His smoking use included cigarettes. He does not have any smokeless tobacco history on file. He reports that he does not use drugs. Family History: No family history on file. Vitals: BP 112/72 Pulse 68 Temp 97.3 F (36.3 C) (Axillary) Resp 16 Ht 1.88 m (6' 2 ) Wt 79.4 kg (175 lb) SpO2 95% BMI 22.47 kg/m Temp (24hrs), Av.9 F (36.6 C), Min:97.3 F (36.3 C), Max:98.6 F (37 C) No results for input(s): POCGLU in the last 72 hours. I/O(24Hr): Intake/Output Summary (Last 24 hours) at 10/03/2024 0959 Last data filed at 10/03/2024 0800 Gross per 24 hour Intake -- Output 1425 ml Net -1425 ml Labs: @LABDAILY3@ No results found for: SPECIAL No results found for: CULTURE @[facility]@ Radiology: No results found. Physical Examination: Physical Exam Cardiovascular: Rate and Rhythm: Normal rate and regular rhythm. Pulmonary: Effort: Pulmonary effort is normal. Breath sounds: Normal breath sounds. Abdominal: General: There is distension. Palpations: Abdomen is soft. Musculoskeletal: Right lower leg: Edema present. Skin: General: Skin is warm. Neurological: Mental Status: He is alert. Motor: No weakness. Comments: ANO x 2 Identifiers name and year correctly Answers basic questions appropriately but in-depth questions about medical history unable to respond to Assessment: Primary Problem Community acquired pneumonia of lower lobe of lung Active Hospital Problems Diagnosis Date Noted Community acquired pneumonia of lower lobe of lung [J18.9] 10/02/2024 Lower extremity edema [R60.0] 10/02/2024 Plan: Altered mental status, worsening hallucinations - dementia versus delirium -Patient transferred from [facility] due to declining mental status and increasing delusions and hallucinations. Per chart review patient's was increasingly concerned for the last 2 weeks he has had more hallucinations and delusions, concerned of people coming to find him. Recently obtained a pocket knife that she is unsure how he got. Per chart review endorsed some suicidal ideation -CT head in ED [place] 10/01 reviewed no acute intracranial abnormality -UDS 10/01 [place] positive for tricyclic's -On admit patient denies any hallucinations, suicidal ideation or homicidal ideation but appears to have a disorganized thought process, responding inaccurately about some of his history and health, potentially responding to internal stimuli -Patient has underlying pneumonia and UTI which are causes for delirium but based off chart review history of altered mentation timeline suggests other underlying psychiatric including dementia -Recommend completing neuropsych assessment at this time outpatient -On Abilify nightly per medication review -> switch to Seroquel nightly/olanzapine twice daily as needed for agitation -Psych consult, appreciate recommendations Pneumonia, COPD - chronic smoker - Chest x-ray completed showing right lower lobe pneumonia, mild enlarged heart size. - 1 dose azithromycin given in ED 10/01 per charts - Patient is denying any shortness of breath or chest pain at this time, heartedly no history of COPD and no wheezing on physical exam - Albuterol as needed, no wheezing on physical exam and satting appropriately on room air - Continue azithromycin, Rocephin - Pneumonia workup panel in process-positive for human metapneumovirus UTI with chronic indwelling Villarreal, CKD stage IIIb - History of bladder cancer, indwelling Villarreal due to enlarged prostate and urinary retention, chronic smoker - CKD stage IIIb follows with nephrology - Patient denies any pain, increased frequency with urination - In ED at [place], urinalysis small leukocyte esterase moderate bacteria 10/01; BUN 26 creatinine 2.01 - Repeat urinalysis leukoesterase, urine culture pending - IV Rocephin and IV fluid bolus. 1 dose given in ED 10/01 per charts - Patient likely around baseline BUN/creatinine levels due to CKD status. Discontinue gentle fluids due to decreased ejection fraction - Urology consulted, appreciate recommendations A-fib - Patient had some runs of A-fib in ED yesterday - Continue amiodarone, Toprol, warfarin for A-fib Right lower leg edema - On chart review chronic right lower leg edema - Continue to monitor, discussed with attending if need for Doppler - Continue home medication Lasix - Doppler pending - Follows with vascular outpatient CAD, status post stent December 2023 - Follows with cardiology out patient - On Plavix daily - Nitro as needed for chest pain - On Lipitor high-dose CHF, rEF - Follows with cardiology out patient - Echo 07/2024 30 to 35% ejection fraction -Continue home medication Lasix, Toprol Hyperthyroidism - Patient on methimazole 5 mg twice daily - TSH 1.29 WNL Anemia - History of anemia, on iron daily - Hemoglobin 9.9 today, 11 yesterday - Likely dilutional no dark stools or sig GI bleed hx, anemia workup pending AAA s/p stent - Patient follows with vascular outpatient DVT prophylaxis: On Coumadin, likely for afib GI prophylaxis: Not indicated at this time Diet: Regular diet, safety tray Code: Full code, family wants to discuss further Discharge planning: TBD, per psych not a candidate for BHI at this time To be discussed with attending Dr.Grewal Waqar Hadley MD 10/03/2024 9:59 AM Attending Physician Statement I have discussed the care of Alex Anderson and I have examined the patient myself and taken ROS and HPI, including pertinent history and exam findings, with the resident. I have reviewed the diaz elements of all parts of the encounter with the resident. I agree with the assessment, plan and orders as documented by the resident. Neuro consult, dementia? Anemia workup Fobt Venous doppler pending New consult for Palliative Care. Gluing Machine Operator Electronic notified Heather Alvarez, FARHAT. Pharmacy Note Warfarin Consult follow-up Recent Labs 10/02/24 1139 10/03/24 0623 INR 1.9 1.7 Recent Labs 10/02/24 1139 10/03/24 0623 HGB 11.0* 9.9* HCT 38.8* 33.1* PLT 245 165 Significant Drug-Drug Interactions: New warfarin drug-drug interactions: seroquel Discontinued drug-drug interactions: none Current warfarin drug-drug interactions: azithromycin, rocpehin, plavix, methimazole, atorvastatin, amiodarone, acetaminophen Date INR Dose given previous day Dose scheduled for today 10/03/2024 1.7 2 mg 4 mg Notes: INR subtherapeutic today at 1.7 (goal 2-3). Will schedule booster dose of warfarin 4 mg tonight. Daily PT/INR while inpatient. Aidee Kearns, Ericka, [facility] RN attempted to finish patients admission questions, patient was unable to answer. Gluing Machine Operator Electronic notified Palliative care of new consult placed. Pharmacy Note Warfarin Consult Alex Anderson is a 78 y.o. male for whom pharmacy has been consulted to manage warfarin therapy. Consulting Physician: Dr. Haldey Reason for Admission: CAP Warfarin dose prior to admission: 2 mg dialy Warfarin indication: Atrial fibrillation Target INR range: 2-3 No past medical history on file. Recent Labs 10/02/24 1139 INR 1.9 Recent Labs 10/02/24 1139 HGB 11.0* HCT 38.8* PLT 245 Current warfarin drug-drug interactions: azithromycin, rocephin, plavix, methimazole, atorvastatin, amiodarone, acetaminophen Date INR Dose 10/02/2024 1.9 2 mg Additional notes: INR slightly subtherapeutic today at 1.9 (goal 2-3). Patient follows with [facility]. Patient's first time at [facility], sparse documentation in EPIC. Documentation from transferring hospital states patient is on coumadin 2 mg daily. Will schedule coumadin 2 mg tonight, has not received medications since last night. Daily PT/INR while inpatient. Thank you for the consult. Will continue to follow. Aidee Kearns, Ericka, [facility] New consult to Urology. Gluing Machine Operator Electronic notified Goldy Baptiste MD. New consult to Psychiatry. Gluing Machine Operator Electronic notified Froy Razo MD. documented in this encounter [facility] 10-05-2024 Hospital Discharge instructions Waqar Hadley MD - 10/05/2024 11:40 AM EDT - You were positive for metapneumovirus which was likely because of pneumonia. Pneumonia treatment completed. - Urine cultures came back positive for Klebsiella and Enterobacter cloacae. Please complete antibiotic Bactrim for UTI. - Follow-up with psychiatry and neurology for further psychiatric assessment and cognitive evaluations. Please images of CT head (CD rom and photo on phone) from [facility] with you but it is also uploaded in media in your chart at [facility] - Follow-up with your vascular surgeon regarding your procedure and clarifying if you need to hold just Coumadin or both Coumadin and Plavix. Also follow-up on your varicose veins. - Please follow-up with your PCP in 1 week for continuing medication management - Medications Seroquel and Exelon to help with hallucinations and cognitive changes ordered today. An extra albuterol inhaler sent to your local pharmacy if run out of current inhaler at home. If you start to develop significant changes again from your baseline, or worsening confusion and hallucinations please seek urgent medical attention Thank you Erika Chisholm RN - 10/04/2024 9:42 AM EDT Continuity of Care Form Patient Name: Alex Anderson : 1945 Admit date: 10/02/2024 Discharge date: 10/05/2024 Code Status Order: Full Code Advance Directives: Admitting Physician: Servando Perez MD PCP: Stanley Emerson MD Discharging Nurse: Jessy CHAN Discharging Hospital Unit/Room#: Discharging Unit Emergency Contact: Extended Emergency Contact Information Primary Emergency Contact: Estella Anderson Relation: Spouse Front End Web Designer needed? No Secondary Emergency Contact: Antonio Anderson Relation: Child Past Surgical History: No past surgical history on file. Immunization History: Immunization History Administered Date(s) Administered COVID-19, MODERNA Bivalent, (age 12y+), IM, 50 mcg/0.5 mL 03/29/2022 COVID-19, PFIZER, , (age 12y+), IM, 30mcg/0.3mL 02/16/2023 COVID-19, US Vaccine, Vaccine Unspecified 10/03/2021 Active Problems: Patient Active Problem List Diagnosis Code Community acquired pneumonia of lower lobe of lung J18.9 Lower extremity edema R60.0 Delirium due to another medical condition F05 Isolation/Infection: Isolation Droplet Contact Contact and Airborne Patient Infection Status Infection Onset Added Last Indicated Last Indicated By Review Planned Expiration Human Metapneumovirus 10/02/24 10/02/24 10/02/24 Respiratory Panel, Molecular, with COVID-19 (Restricted: peds pts or suitable admitted adults) 10/09/24 10/12/24 history Nurse Assessment: Last Vital Signs: BP 124/73 Pulse 71 Temp 98.5 F (36.9 C) (Oral) Resp 16 Ht 1.88 m (6' 2 ) Wt 79.4 kg (175 lb) SpO2 95% BMI 22.47 kg/m Last documented pain score (0-10 scale): Last Weight: Wt Readings from Last 1 Encounters: 10/02/24 79.4 kg (175 lb) Mental Status: alert and orientated and disoriented at times IV Access: - None Nursing Mobility/ADLs: Walking Assisted Transfer Assisted Bathing Assisted Dressing Assisted Toileting Assisted Feeding Independent Crm Manager Assisted Med Delivery whole Wound Care Documentation and Therapy: Elimination: Continence: Bowel: Yes Bladder: villarreal cath Urinary Catheter: Insertion Date: 10/04 Colostomy/Ileostomy/Ileal Conduit: No Date of Last BM: 10/04 Intake/Output Summary (Last 24 hours) at 10/04/2024 0932 Last data filed at 10/04/2024 0617 Gross per 24 hour Intake 300 ml Output 2050 ml Net -1750 ml I/O last 3 completed shifts: In: 300 [P.O.:300] Out: 3225 [Urine:3225] Safety Concerns: At Risk for Falls Impairments/Disabilities: Hearing Nutrition Therapy: Current Nutrition Therapy: - Oral Diet: General Routes of Feeding: Oral Liquids: No Restrictions Daily Fluid Restriction: no Last Modified Barium Swallow with Video (Video Swallowing Test): not done Treatments at the Time of Hospital Discharge: Respiratory Treatments: NA Oxygen Therapy: is not on home oxygen therapy. Ventilator: - No ventilator support Rehab Therapies: Physical Therapy and Occupational Therapy Weight Bearing Status/Restrictions: No weight bearing restrictions Other Medical Equipment (for information only, NOT a DME order): cane, walker, and bath bench Other Treatments: Mcfp assessment and monitoring. Medication education and monitoring per protocol. Patient's personal belongings (please select all that are sent with patient): Glasses RN SIGNATURE: CASE MANAGEMENT/SOCIAL WORK SECTION Inpatient Status Date: 10/02/2024 Readmission Risk Assessment Score: [facility] RISK OF UNPLANNED READMISSION 2.0 13.1 Total Score Discharging to Facility/ [facility] Address: [address] [place] [address] Dialysis Facility (if applicable) Name: Address: Dialysis Schedule: Phone: Fax: Rehab Liaison/Associate Doctor signature: PHYSICIAN SECTION Prognosis: Fair Condition at Discharge: Stable Rehab Potential (if transferring to Rehab): Fair Recommended Labs or Other Treatments After Discharge: Physician Certification: I certify the above information and transfer of Alex Anderson is necessary for the continuing treatment of the diagnosis listed and that he requires Home Care for less 30 days. Update Admission H&P: No change in H&P PHYSICIAN SIGNATURE: documented in this encounter [facility] 09-21-2024 History of Present illness Narrative Images from the original note were not included. Patient ID: Alex Anderson is a 78 y.o. male who presents for: Pt reported to his [facility] Nurse yesterday that pt has been having issues with increased hallucinations and cognitive impairment. [facility] and there are no recent UA's done from urology. Pt does have an indwelling catheter and on prophylactic Keflex. Pt states that she does not think these issues are from a urinary tract infection. She states that his symptoms do not match what he has done when this was an issue in the past. Pt said that they are visual hallucinations and some delusions which was onset last . She states he has had issues in the past but very spaced apart. At most twice a month. She states they are now happening more than once daily. She states he sees scary people hanging from the rafters and thinking that he needs to protect the family. This morning he was seeing a kangaroo in the yard. She states She has a psychiatrist who is willing to take Alex on as a patient. Review of Systems Objective The patient is pleasant and in no acute distress The patient has good eye contact and clear speech Again noted is the patient has significant hearing loss, he has previously refused on multiple attempts to get hearing aids. Some of his thinking today does appear to be mildly delusional. He does talk about what I would anticipate are the hallucinations as though they are real. Visit Vitals Ht 6' 2 Wt 203 lb BMI 26.06 kg/m Smoking Status Former BSA 2.19 m Office Visit on 09/21/2024 Component Date Value Ref Range Status Color, UA 09/21/2024 Yellow Final Clarity, UA 09/21/2024 Clear Final Glucose, UA 09/21/2024 Negative Negative - 2000(110) ++++ mg/dL Final Bilirubin, UA 09/21/2024 Negative Negative - 4(70) +++ mg/dL Final Ketones, UA 09/21/2024 Positive Negative - 160(16) ++++ mg/dL Final Spec Grav, UA 09/21/2024 1.025 1 - 1.03 Final Blood, UA 09/21/2024 Negative Negative - 50 Fletcher/mcL Final pH, UA 09/21/2024 6.0 5 - 9 Final Protein, UA 09/21/2024 Positive Negative - 1999(20) ++++ mg/dL Final Urobilinogen, UA 09/21/2024 0.2 0.2 - 12 mg/dL Final Leukocytes, UA 09/21/2024 Negative Negative - 500+++ Ed/mcL Final Nitrite, UA 09/21/2024 Negative Negative - Positive Final Clinisync Result Encounter on 09/02/2024 Component Date Value Ref Range Status TRIGLYCERIDES 09/02/2024 81 <=150 mg/dL Final CHOLESTEROL 09/02/2024 86 <=200 mg/dL Final HDL CHOLESTEROL 09/02/2024 43 40 - 60 mg/dL Final Comment: > or =60 mg/dl - LOW CARDIOVASCULAR RISK <40 mg/dl - HIGH CARDIOVASCULAR RISK LDL CHOLESTEROL CALCULATED 09/02/2024 26.8 mg/dL Final Comment: <100 mg/dl OPTIMAL 100-129 mg/dl NEAR OR ABOVE OPTIMAL 130-159 mg/dl BORDERLINE HIGH 160-189 mg/dl HIGH >190 mg/dl VERY HIGH VLDL CHOLESTEROL 09/02/2024 16.2 mg/dL Final CHOL HDL RATIO 09/02/2024 2.0 Final Comment: 3.3 - 4.4 LOW RISK 4.4 - 7.1 AVERAGE RISK 7.1 - 11.0 MODERATE RISK >11.0 HIGH RISK THYROID STIMULATING HORMONE 09/02/2024 0.537 0.358 - 3.740 uIU/mL Final No Known Allergies Current Outpatient Medications on File Prior to Visit Medication Sig Dispense Refill albuterol HFA 90 mcg/act inhaler Inhale 2 puffs every 6 (six) hours if needed for wheezing 54 g 1 amiodarone (Pacerone) 200 MG tablet Take 200 mg by mouth Daily atorvastatin (Lipitor) 80 MG tablet Take 80 mg by mouth at bedtime cephalexin (Keflex) 250 MG capsule Take 250 mg by mouth in the morning. (Patient taking differently: Take 250 mg by mouth 3 (three) times a week) clopidogrel (Plavix) 75 MG tablet Take 75 mg by mouth Daily ferrous sulfate 325 (65 Fe) MG tablet Take 325 mg by mouth in the morning. Take with meals. (Patient taking differently: Take 325 mg by mouth in the morning and 325 mg before bedtime.) FIBER ADULT GUMMIES PO Take 2 tablets by mouth Daily furosemide (Lasix) 40 MG tablet Take 40 mg by mouth in the morning. methIMAzole (Tapazole) 5 MG tablet Take 1 tablet (5 mg) by mouth in the morning and 1 tablet (5 mg) before bedtime. 60 tablet 11 metoprolol succinate XL [...] 2 days a week (Friday and ) No current facility-administered medications on file prior to visit. 1. 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 disturbance, psychotic disturbance, mood disturbance, or anxiety (CMS/HCC) Chronic problem that is slowly progressing per the . Even the patient notices this but notes that everybody at his age forgets. He does appear to be getting his days and nights mixed up and having some sundowning symptomatology. Discussing further mostly with his she is agreeable to a trial of an atypical antipsychotic at low-dose. This should help with the sleep and should help to minimize the hallucinations. We discussed how this is relatively contraindicated in patients with Alzheimer's. These medications have been noted to potentially shortened their life span. 2. Hallucinations In prescribing a new medication consideration of the following encompasses moderate decision making: the current prescriptions and supplements, the current allergies and medication intolerances, the current medical conditions, and potential drug interactions. Risks, benefits, and reason for starting their medication were discussed. The patient was given a chance to ask questions today and all questions were answered. The patient is to contact us if any other questions arise or if any problems occur with the adjustment in their medication. - ARIPiprazole (Abilify) 2 MG tablet; Take 0.5 tablets (1 mg) by mouth at bedtime Dispense: 15 tablet; Refill: 0 - POCT urinalysis dipstick manually resulted 3. Need for prophylaxis against urinary tract infection He is on the cephalexin prophylactically to help prevent infection. We had him taking it daily the patient's notes that he is only using it 3 times a week. 4. Indwelling urinary catheter present There was concern that he is having infection again which could be worsening his dementia. While he is in ketosis, he does not appear to have a UTI. We talked about slow frequent carbohydrates that she notes this sometimes hard to get him to eat. - POCT urinalysis dipstick manually resulted 5. Former smoker Continue stopped smoking 6. Polypharmacy Chronic problem The patient meets the [...] a moderate degree of evaluation and management. 7. Overweight Continue a gentle exercise program. documented in this encounter [facility] 09-10-2024 History of Present illness Narrative Chief Complaint Patient presents with Follow-up 1 month follow up abnormal testing Subjective Alex Anderson is a 78 y.o. male HPI Patient is in the office for follow-up at scheduled to discuss AICD implantation due to persistently reduced ejection fraction with most recent echocardiogram on 08/06/2024 showing ejection fraction of 30-35% due to ischemic cardiomyopathy. He is not on maximal therapy for heart failure due to significant hypotension. He is still compensated. He had no syncope and no history of ventricular tachycardia. He does not have any volume overload. His EKG today revealed sinus rhythm, he is chronically anticoagulated with Coumadin and has been on amiodarone. I discussed at length with the patient and his family the merit of having AICD in place. The pros and cons were discussed and they agreed to proceed. Arrangements are going to be made at [facility]. He will be communicated to through the office in the area for the arrangements to be made. His present medical therapy was left unchanged. Assessment/recommendations: 1-history of non-ST elevation myocardial infarction leading to LAD stenting December 2023 at [facility], continue Plavix, high intensity statin, patient is not on aspirin since he is also on Coumadin 2-post [place] paroxysmal atrial fibrillation, currently back in sinus rhythm spontaneously on amiodarone and Coumadin, to be monitored 3- ischemic cardiomyopathy, systolic heart failure stage C functional class II NYHA CHF, GDMT could not be initiated due to hypotension in the past, his blood pressure today is reasonable. Ejection fraction remains low at 30-35% based on the echocardiogram July 2024. AICD is recommended and will be arranged at [facility]. 5- status post AAA stenting with EVAR 2022 with no complications. 6- chronic kidney disease stage IIIb. Patient's follows with nephrology, basic metabolic profile is ordered 7-hyperlipidemia on maximal dose atorvastatin 8- history of TIA, no recurrences 9- slight overweight, encouragement provided for prudent diet and daily activities 10-colon polyp large enough to require surgery, he is refusing follow-up at the [facility] 11- history of bladder cancer followed by urology, recently has hematuria and he was advised that he can stop the Coumadin for the next several days since he is in sinus rhythm till he is assessed by urology 12-high risk medication with warfarin and amiodarone to be monitored closely 13-hyperthyroidism on Tapazole, more aggressive therapy is needed based on the blood work that was done recently. Review of Systems Respiratory: Positive for shortness of breath. All other systems reviewed and are negative. Vitals: 09/10/24 0940 BP: 110/64 BP Location: Left arm Patient Position: Sitting Pulse: 68 Weight: 93 kg (205 lb) Height: 1.88 [...] no known allergies. Current Medications Current Outpatient Medications Medication Instructions albuterol 90 mcg/actuation inhaler 2 puffs, Every 4 hours PRN amiodarone (PACERONE) 200 mg, oral, Daily atorvastatin (LIPITOR) 80 mg, Daily cephalexin (Keflex) 250 mg capsule 1 capsule, Daily (629) clopidogrel (Plavix) 75 mg tablet Patient will take 4 tablets ( 300mg) one time only, then will take one tablet daily ferrous sulfate 325 mg, Daily with breakfast furosemide (LASIX) 40 mg, Daily methIMAzole (TAPAZOLE) 5 mg, oral, 2 times daily metoprolol succinate XL (TOPROL-XL) 25 mg, oral, Daily, Do not crush or chew. multivitamin (Multiple Vitamins) tablet 1 tablet, Daily nitroglycerin (NITROSTAT) 0.4 mg, Every 5 min PRN potassium chloride CR (Klor-Con M20) 20 mEq ER tablet 20 mEq, oral, Daily, Do not crush or chew. warfarin (Coumadin) 5 mg tablet Take one tablet daily in the evening. Follow [facility]. Patient will take coumadin and eliquis together for 3 days only Assessment/Plan 1. Cardiomyopathy, ischemic Referral to Cardiac Electrophysiology Basic Metabolic Panel Basic Metabolic Panel 2. Coronary artery disease involving [place] coronary artery of [place] heart without angina pectoris Basic Metabolic Panel Basic Metabolic Panel 3. S/P PTCA (percutaneous transluminal coronary angioplasty) 4. ST elevation myocardial infarction (STEMI), unspecified artery (Multi) 5. Paroxysmal atrial fibrillation (Multi) ECG 12 Lead Complete Pulmonary Function Test (Spirometry/DLCO/Lung Volumes) 6. High risk medication use Complete Pulmonary Function Test (Spirometry/DLCO/Lung Volumes) 7. Essential hypertension 8. Abdominal aortic aneurysm (AAA) greater than 5.5 cm in diameter in male 9. Dyslipidemia Aspartate Aminotransferase Thyroid Stimulating Hormone Aspartate Aminotransferase Thyroid Stimulating Hormone 10. Stage 3a chronic kidney disease (Multi) 11. Former smoker 12. BMI 26.0-26.9,adult Scribe Attestation By signing my name below, IRuth LPN, Scribe attest that this documentation has been [...] discussion and plan. documented in this encounter [facility] Work Phone: 09-10-2024 Instructions Ruth Mojica LPN - 09/10/2024 10:00 AM EDT Please bring all medicines, vitamins, [...] since last visit (-) denotes wt loss 1 lbs Weight loss needed to achieve BMI 25: 10.7 Lbs Weight loss needed to achieve BMI 30: -28.2 Lbs Provided instructions on dietary changes. AICD discussed. Refer to Dr Baxter/Neo 03/29 visit as scheduled. documented in this encounter [facility] Work Phone: 08-12-2024 Telephone encounter Note Entered in error [facility] 08-12-2024 Miscellaneous Notes Entered in error documented in this encounter [facility] 08-11-2024 Evaluation note Diagnosis Onset Date Resolution Abdominal aortic aneurysm without rupture acute July 242024 10:25am Anemia acute August 11 10:25am CHF (congestive heart failure) acute August 11, 2024 10:25am Chronic kidney disease, stage 3b acute August 11, 2024 10:25am Hyperlipidemia acute July 10:25am Hypertensive nephropathy acute August 11, 2024 10:25am Iron deficiency acute July 10:25am Obstructive nephropathy acute 2024 10:25am [facility] Work Phone: 1(153) 119-790603-19-2025 Evaluation note* Diagnosis Onset Date Resolution Status Admit Date Abdominal aortic aneurysm wi thout rupture acute August 11, 2024 10:25am Anemia acute August 11 10:25am CHF (congestive heart failure) acute August 11, 2024 10:25am Chronic kidney disease, stage 3b acu te August 11, 2024 10:25am Hyperlipidemia acute July 10:25am Hypertensive nephropathy acute August 11, 2024 10:25am Iron deficiency acute July 10:25am Obstructive nephropathy acute M arch 2024 10:25am Aneurysm of left popliteal artery ac [place] September 23, 2024 9:09am [facility] Work Phone: 1(659) 797-909503-19-2025 Evaluation note* Diagnosis Onset Date Resolution Status Admit Date Abdominal aortic aneurysm wi thout rupture acute August 11, 2024 10:25am Anemia acute August 11 10:25am CHF (congestive heart failure) acute August 11, 2024 10:25am Chronic kidney disease, stage 3b acu te August 11, 2024 10:25am Hyperlipidemia acute July 10:25am Hypertensive nephropathy acute August 11, 2024 10:25am Iron deficiency acute July 10:25am Obstructive nephropathy acute M arch 2024 10:25am Aneurysm of left popliteal artery ac [place] September 23, 2024 9:09am Abdominal aortic aneurysm wi thout rupture acute November 03, 2024 3:51pm Anemia acute November 03 3:51pm CHF (congestive heart failure) acute November 03, 2024 3:51pm Chronic kidney disease, stage 3b acu te November 03, 2024 3:51pm Hyperlipidemia acute November 03, 2024 3:51pm Hypertensive nephropathy acute November 03, 2024 3:51pm Iron deficiency acute October 3:51pm Obstructive nephropathy acute J 2024 3:51pm [facility] Work Phone: 1(809) 914-989803-06-2025 History of Present illness Narrative* Teo Al MD - 07/29/2024 11:00 AM EST Subjective Alex Anderson is a 78 y.o. male Chief Complaint Follow-up HPI Patient is in the office for follow-up for ischemic cardiomyopathy, CAD and previous PCI and paroxysmal atrial fibrillation among other problems noted below. Since he was last seen in the office he developed hematuria recently while he is on Plavix and Coumadin. He is scheduled to be seen by urology in the near future. His atrial fibrillation has been controlled on amiodarone and his EKG today confirmed normal sinus rhythm with normal intervals. His memory is stable these days. He was against going to the [facility] to follow-up on colonic polyp as was suggested by his local electrostatic painter. He reports no syncope or presyncope his cardiac rehab data were reviewed and there has beenno concern noted. His blood pressure tend to be on the low side but no falls or syncope. He reportsno angina pectoris. His medical therapy was reviewed and shared with him and his and his daughter as well. Amiodarone testing has been in place. Recent testing for the thyroid demonstrated hyperthyroidism for which the Tapazole dose was doubled. Assessment/recommendations: 1-history of non-ST elevation myocardial infarction leading to LAD stenting December 2023 at [facility], continue Plavix, high intensity statin, patient is not on aspirin since he is also on Coumadin 2-post [place] paroxysmal atrial fibrillation, currently back in sinus rhythm spontaneously on amiodarone and Coumadin, to be monitored 3- ischemic cardiomyopathy, systolic heart failure stage C functional class II NYHA CHF, GDMT couldnot be initiated due to hypotension in the past, his blood pressure today is reasonable. Will continue beta-maldonado therapy with delay vasodilators due to soft blood pressure. A limited echocardiogram will be scheduled to reassess potential need for AICD if not better. 5- status post AAA stenting with EVAR 2022 with no complications. 6- chronic kidney disease stage IIIb. Patient's follows with nephrology, basic metabolic profile isordered 7-hyperlipidemia on maximal dose atorvastatin 8- history of TIA, no recurrences 9- slight overweight, encouragement provided for prudent diet and daily activities 10-colon polyp large enough to require surgery, he is refusing follow-up at the [facility] 11- history of bladder cancer followed by urology, recently has hematuria and he was advised that he can stop the Coumadin for the next several days since he is in sinus rhythm till he is assessed byurology 12-high risk medication with warfarin and amiodarone to be monitored closely 13-hyperthyroidism on Tapazole, more aggressive therapy is needed based on the blood work that was done recently. Review of Systems All other systems reviewed and are negative. Vitals: 07/29/24 1113 BP: 98/60 BP Location: Right arm Patient Position: Sitting Pulse: 67 Weight: 92.5 kg (204 lb) Height: 1.88 m (6' 2 ) [...] by mouth once daily., Disp: , Rfl: cephalexin (Keflex) 250 mg capsule, Take 1 capsule (250 mg) by mouth early in the morning.., Disp: , Rfl: clopidogrel (Plavix) 75 mg [...] by mouth once daily., Disp: , Rfl: methIMAzole (Tapazole) 5 mg tablet, Take 0.5 tablets (2.5 mg) by mouth 2 times a day., Disp: 90 tablet, Rfl: 3 metoprolol succinate XL (Toprol-XL) 25 mg 24 hr tablet, Take 1 tablet (25 mg) by mouth once daily. Do not crush or chew., Disp: 90 tablet, Rfl: 3 multivitamin (Multiple Vitamins) tablet, Take 1 tablet [...] tablet daily in the evening. Follow [facility]. Patient will take coumadin and eliquis together for 3 days only, Disp: 14 tablet, Rfl: 0 Assessment/Plan 1. Cardiomyopathy, ischemic Follow Up In Cardiology 2. Paroxysmal atrial fibrillation (Multi) 3. High risk medication use 4. Coronary artery disease involving [place] coronary artery of [place] heart without angina pectoris 5. S/P PTCA (percutaneous transluminal coronary angioplasty) 6. ST elevation myocardial infarction (STEMI), unspecified artery (Multi) 7. Essential hypertension 8. Dyslipidemia 9. Stage 3a chronic kidney disease (Multi) 10. Transient cerebral ischemia, unspecified type 11. Hematuria, unspecified type 12. Hyperthyroidism 13. BMI 26.0-26.9,adult 14. Former smoker Scribe Attestation By signing my name below, I, Isidoro Farrell LPN attest that this documentation has been prepared under the direction and in the presence of Teo Al MD. Provider Attestation - Scribe documentation All medical record entries made by the Scribe were at my direction and personally dictated by me. Ihave reviewed the chart and agree that the record accurately reflects my personal performance of the history, physical exam, discussion and plan. documented in this [facility] Work Phone: 1(877) 785-772603-06-2025 Instructions* Patient Instructions* Pebbles Arcos LPN - 07/29/2024 11:00 AM EST Please bring all medicines, vitamins, and herbal supplements with you when you come to the office. Prescriptions will not be filled unless you are compliant with your follow up appointments or have a follow up appointment scheduled as per instruction of your physician. Refills should be requested at the time of your visit. BMI was above normal measurement. Current weight: 92.5 kg (204 lb) Weight change since last visit (-) denotes wt loss -3 lbs Weight loss needed to achieve BMI 25: 9.7 Lbs Weight loss needed to achieve BMI 30: -29.2 Lbs Provided instructions on dietary changes. Amiodarone follow up per routine May hold the warfarin up to 10 days for urology, clots in the urine * Attachments The following attachments cannot be sent through Care Everywhere. * Heart Healthy Diet ([place]) documented in this [facility] Work Phone: 1(917) 649-418902-20-2025 Hospital Discharge instructions Patient Education 07/15/2024 14:05:29 Bladder Cancer Bladder Cancer Bladder cancer is [...] cells. Follow these instructions at home: Take lvaz-xrr-azaulxu and prescription medicines only as told by [...] is important. Where to find more information [employer] (ACS): cancer.org National Cancer [place] (NCI): cancer.gov Contact a health care provider [...] provider. Document Revised: 04/22/2022 Document Reviewed: 04/22/2022 [employer] Patient Education 2023 [email or web address] Follow Up Care 06/01/2024 11:03:36 With:HEATHER OMALLEY PA-C, URL Address: [address] [place] [address] When:Within 1 Month(s) [facility] 02-20-2025 NotePatient Education Oncology Bladder Cancer Bladder cancer is [...] you more likely to develop this condition: ??? Smoking. ??? Working where there are risks (occupational exposures), such as working with rubber, leather, clothing fabric, dyes, chemicals, or paint. ??? Being 55 years of age or older. ??? Being male. ??? Having long-term bladder inflammation. ??? Having a history of cancer. This includes: ? A family history of bladder cancer. ? Having had bladder cancer before. ? Having had certain treatments for cancer before, such as: ? Medicines to kill cancer cells (chemotherapy). ? Strong X-ray beams or high-energy capsules to kill cancer cells and shrink tumors (radiation therapy). ??? Having been exposed to arsenic. This is a poisonous substance. What are the signs or symptoms? Early symptoms of this condition include: ??? Blood in your urine. ??? Pain when urinating. ??? Infections of your urinary system (urinary tract infections or UTIs) that happen often. ??? Having to urinate sooner or more often than normal. Late symptoms of this condition include: ??? Not being able to urinate. ??? Pain on one side of your lower back. ??? Loss of appetite. ??? Weight loss. ??? Tiredness (fatigue). ??? Swelling in your feet. ??? Bone pain. How is this diagnosed? This condition is diagnosed based on: ??? Your medical history. ??? A physical exam. ??? Lab tests, such as urine tests. ??? Imaging tests. ??? Your symptoms. You may also have other tests or procedures, such as: ??? A cystoscopy. This involves putting a narrow tube into your urethra. The urethra is the organ that carries urine from your bladder to the outside of your body. This procedure is done to view the lining of your bladder for tumors. ??? A biopsy. This involves removing a tissue sample to look at under a microscope to check for cancer. Blood tests or imaging tests may be needed. These show how far into the bladder wall cancer has grown, and if cancer has spread to any other parts of your body. Tests may include: ??? CT scan. ??? MRI. ??? Bone scan. ??? X-ray. How is this treated? Your health care provider may recommend one or more types of treatment based on the stage of your cancer. The most common treatments are: ??? Surgery to remove the cancer. Types of surgeries include: ? Removing a tumor on the inside wall of the bladder (transurethral resection). ? Removing the bladder (cystectomy). ??? Radiation therapy. This is often combined with chemotherapy. ??? Chemotherapy. ??? Immunotherapy. This uses medicines to help your body's disease-fighting system (immune system) destroy cancer cells. Follow these instructions at home: ??? Take tlpb-iha-dxmajii and prescription medicines only as told by your health care provider. ??? If you were prescribed an antibiotic medicine, take it as told by your health care provider. Donot stop using the antibiotic even if you start to feel better. ??? Eat a healthy diet. Some treatments might affect your appetite. ??? Do not use any products that contain nicotine or tobacco. These products include cigarettes, chewing tobacco, and vaping devices, such as e-cigarettes. If you need help quitting, ask your health care provider. ??? Consider joining a support group. This may help you learn to deal with the stress of having bladder cancer. ??? Tell your cancer care team if you develop side effects. Your team may be able to recommend waysto get relief. ??? Keep all follow-up visits. This is important. Where to find more information ??? [employer] (ACS): cancer.org ??? National Cancer [place] (NCI): cancer.gov Contact a health care provider if: ??? You have symptoms of a UTI. These include: ? Fever. ? Chills. ? Weakness. ? Muscle aches. ? Pain in your abdomen. ? Urge to urinate that is stronger and happens more often than normal. ? Burning in the bladder or urethra when you urinate. Get help right away if: ??? There is blood in your urine. ??? You cannot urinate. ??? You have severe pain or other symptoms that do not go away. Summary ??? Bladder cancer is a condition where tumors grow in the bladder. ??? Diagnosis is based on your medical history, a physical exam, lab tests, imaging tests, and yoursymptoms. ??? Your health care provider may recommend one or more types of treatment based on the stage of your cancer. ??? Consider joining a support group. This may help you learn to deal with the stress of having bladder cancer. This information is n (more content not included)...[facility] 06-07-2024 NotePatient Education Urology Hematuria, Adult Hematuria is blood in the urine. Blood may be visible in the urine, or it may be identified with a test. This condition can be caused by infections of the bladder, urethra, kidney, or prostate. Otherpossible causes include: ??? Kidney stones. ??? Cancer [...] blood in your urine, even if it ispainless or the blood stops without treatment. Blood in the urine, when it happens and then stops and then happens again, can be a symptom of a very serious condition, including cancer. There is no pain in the initial stages of many urinary cancers. Follow these instructions at home: Medicines ??? Take aqrt-klr-axxcfbm and prescription medicines only as told by your health care provider. ??? If you were prescribed an antibiotic medicine, take it as told by your health care provider. Donot stop taking the antibiotic even if you [...] kidney stone, follow your health care provider's instructionsabout straining your urine to catch the stone. [...] Tell your health care provider about any changesor any new symptoms. ??? It is up [...] the blood stops without treatment. ??? Take zkco-otz-chajnkr and prescription medicines only as told by your health care provider. ??? Drink enough fluid to keep your urine pale yellow. This information is not intended to replace advice given to you by your health care provider. Make sure you discuss any questions you have with your health care provider. Document Revised: 01/10/2021 Document Reviewed: 01/10/2021 [employer] Patient Education ? 2023 [email or web address] 05-21-2024 History of Present illness Narrative* Teo Al MD - 05/21/2024 10:00 AM EST Subjective Alex Anderson is a 78 y.o. [...] described. They are considering consultation at the [facility] for large colonic polyp that might need [...] leading to LAD stenting December 2023 at [facility], continue Plavix, high intensity statin, patient is not on aspirin since he is also on Coumadin 2-post [place] paroxysmal atrial fibrillation, currently back in sinus rhythm spontaneously on amiodarone and Coumadin, to be monitored 3- ischemic cardiomyopathy, systolic heart failure stage C functional class II NYHA CHF, GDMT couldnot be initiated due to hypotension in the past, his blood pressure today is reasonable. Will startmetoprolol succinate 25 mg daily with the plan to add RAAS inhibition if his kidney function allowsdown the road. 5- status post AAA stenting [...] he is following for that at the [facility]. 11- history of bladder cancer followed by [...] tablet daily in the evening. [facility]. Patient will take coumadin and [...] Stimulating Hormone 3. Coronary artery disease involving [place] coronary artery of [place] heart without angina pectoris 4. S/P PTCA [...] my direction and personally dictated by me. Ihave reviewed the chart and agree that the record accurately reflects my personal performance of the history, physical exam, discussion and plan. documented in this [facility] Work Phone: [phone]) [phone] Instructions* Patient Instructions* Pebbles Arcos LPN - 05/21/2024 10:00 AM [...] on exercise. Amiodarone follow up per routine * Attachments The following attachments cannot be sent through Care Everywhere. * Heart Healthy Diet ([place]) documented in this [facility] Work Phone: 1(388) 115-173612-19-2024 History of Present illness Narrative* Stanley Emerson MD - 05/13/2024 2:30 PM EST Images from the original note were not [...] Stanley Emerson MD as PCP - ACO Reach Dora Santiago LPN as Licensed Practical Nurse (Family Medicine) [facility] Medicare Annual Visit Over the past 2 [...] Do you have a medical power of senior trial attorney?: No Objective : BP 122/74 Pulse [...] discussing health maintenance issues, ordering testing as appropriate,and a schedule was reviewed regarding recommended screening. [...] through a living will, durable power of senior trial attorney for healthcare, or other advanced directives. We discussed telling diaz people about their advance and a copy will be kept in the EHR. I discussedthat they should also make me an emergency [...] on May 29, 2024 documented in this encounterSaint Luke's [id number] History of Present illness Narrative* Stanley Emerson MD - 05/10/2024 11:00 AM EST Images from the original note were not [...] repeat fasting lipid profile was done. The patientdoes not use medications that may worsen dyslipidemias (corticosteroids, progestins, anabolic steroids, diuretics, beta-blockers, amiodarone, cyclosporine, olanzapine). Exercise: never. COPD He/She presents for evaluation and treatment of COPD. The patient is not currently have symptoms / an exacerbation. The patient has COPD for approximately Several years. Symptoms in previous episodeshave included dyspnea with activity, and typically last until rests. Previous episodes have been exa cerbated by exposure to cold air. Current treatment [...] respiratory pattern. The breath sounds are diffusely decreasedbut symmetrical without evidence of rhonchi or rales. [...] the level of urine albumin. Normally, the kidneysfilter albumin, so if the kidney leaks small amounts of albumin into the urine then it is a indicator of chronic kidney disease. Microalbuminuria is an independent indicator of increased cardiovascular risk among individuals andtherefore can be used for risk stratification for [...] polypharmacy; 5 or more prescriptions or multi-morbidity definedas 5 or more diagnoses. Polypharmacy can significantly increase the risk of preventable adverse drug events and negatively impact adherence. Consideration of diverse factors such as clinician agreement, patient perspective,and de-prescribing, as appropriate can improve patient outcomes while simplifying care. This requires longitudinal monitoring as there is at least a moderate risk of morbidity and requires at least amoderate degree of evaluation and management. 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 Former smoker Continue to encourage his stopped smoking. 11. Overweight Continue to encourage good nutrition. documented in this encounterSaint Luke's [id number] Hospital Discharge instructions Patient Education 04/06/2024 11:31:42 [...] health care provider. Follow instructions from your healthcare provider about when and how to remove [...] Let your health care provider know that youare not able to remove the catheter. 10.Throw [...] provider. Document Revised: 08/01/2021 Document Reviewed: 04/27/2021 [employer] Patient Education 2021 [email or web address]. 04/06/2024 11:28:52 Cancer Screening for Males Cancer Screening for Males A cancer screening is a test or exam that checks for cancer. Work with your health care provider tocreate a cancer screening schedule that protects your health. Who should have screening? All people who are male should be considered for screening of certain cancers, including colorectalcancer, prostate cancer, lung cancer, and skin cancer. Your health care provider may recommend screenings for other types of cancer if: You have had cancer before. You have a family member with cancer. You have genes that could increase the risk of cancer. You have risk factors for certain cancers, such as current or past use of tobacco products or beingoverweight. What are the benefits of screening? Cancer [...] old and continuing through 75 years old. Formales 74 85 years old, the decision to [...] start screening at an earlier age. Talk withyour health care provider about which screening test [...] old. Talk with your health care provider aboutwhether screening is right for you and, if [...] if anything looks unusual. Males with a gefyhw-mutc-rbaamg risk for skin cancer may want to see a skin former (roll up operator) for an annual body check. Where to find more information [employer]: cancer.org Centers for Disease Control and Prevention: cdc.gov National Cancer [place]: cancer.gov Contact a health care provider if: [...] provider. Document Revised: 05/20/2023 Document Reviewed: 12/02/2022 [employer] Patient Education 2023 [email or web address]. Follow Up Care 02/25/2024 15:13:08 With:ARLENE CASILLAS, Katia Hall, URL Address: [facility] [address] , [place] [address]- When: Unknown [facility] 11-12-2024 NotePatient Education Oncology Cancer Screening for Males A cancer screening is a test or exam that checks for cancer. Work with your health care provider tocreate a cancer screening schedule that protects your health. Who should have screening? All people who are male should be considered for screening of certain cancers, including colorectalcancer, prostate cancer, lung cancer, and skin cancer. [...] old and continuing through 75 years old. Formales 76?85 years old, the decision to be screened should be based on a person's preferences, life expectancy, overall health, and prior screening history. Your health care provider may recommend screening before 45 years old. You will have tests every 1?10 years, depending on your results and the type of screening test. People at increased risk should start screening at an earlier age. Talk withyour health care provider about which screening test [...] such as being an person or having aclose family member with prostate cancer. ??? You have had gene changes or a genetic condition that was passed on to you from a parent (inherited). These gene changes or genetic conditions include BRCA1 or BRCA2 gene mutations or Mccormack syndrome. ??? You have symptoms of prostate cancer, such as problems urinating or problems getting or keepingan erection (erectile dysfunction). When you have been screened for prostate cancer, future screening may be recommended based on the results of your blood tests. Prostate cancer screening for males with average risk may start at 50 years old. Males with risk factors may need to be screened earlier, at 40?45 years old. Talk with your health care provider aboutwhether screening is right for you and, if [...] if anything looks unusual. Males with a kwbncp-ktxh-bspkde risk for skin cancer may want to see a skin former (dermatologi (more content not included)...[facility]10-24-2024 History of Present illness Narrative* Stanley Emerson MD - 03/18/2024 11:30 AM EDT Images from the original note [...] treated there and told he needed to followup with . Overall he appears to feel [...] is speaking full sentences. There are diffusely decreasedbut symmetrical breath sounds. No rhonchi or rales [...] further evaluation or treatment. documented in this encounterSaint Luke's [id number] History of Present illness Narrative* Leanne Soriano LPN - 02/24/2024 3:00 PM EDT Patient here for EKG visit ordered by Dr. Al due to Parox. A-Fib. Dr. Castro in suite to review EKG prior to discharge. Patient here due to reducing Amiodarone 200 mg to once daily due to QTprolongation. Medication list Updated verbally. Denies cardiac complaints. To Dr. Al to read. Vitals: 02/24/24 1519 BP: 100/62 BP Location: Right arm Patient Position: Sitting Pulse: 85 Weight: 93 kg (205 lb) Height: 1.88 m (6' 2 ) documented in this encounterFirelands [facility] Work Phone: 1(188) 404-624109-24-2024 History of Present illness Narrative* Stanley Emerson MD - 02/17/2024 11:45 AM EDT Images from the original note were not included. Patient ID: Alex Anderson is a 78 y.o. male who presents for: Upper Respiratory Infection Patient complains of symptoms of a URI. Symptoms include congestion, nasal congestion, shortness ofbreath, and tired, chest tightness . Onset of symptoms was 3 days ago, and has been gradually worsening since that time. Treatment to date: none. Negative covid yesterday. Review of Systems Constitutional: Positive for fatigue. Negative for chills and fever. HENT: Positive for congestion and postnasal drip. Negative for ear pain, sinus pressure, sinus painand sore throat. Respiratory: Positive for chest tightness. [...] is speaking full sentences. There are diffusely decreasedand asymmetrical breath sounds. No rhonchi or rales [...] highly that he can get the medication intohis lungs properly. I have recommended a spacer and will prescribe. - Spacer/Aero-Holding Chambers (BreatheRite Dulce Spacer Adult) misc; 2 puffs 4 (four) times a day as needed (sob and cough) Dispense: 1 each; Refill: 0 documented in this encounterSaint Luke's [id number] History of Present illness Narrative* Teo Al MD - 02/10/2024 9:20 AM EDT Subjective Alex Anderson is a 78 y.o. male Chief Complaint Hospital Follow-up HPI 78-year-old white male who recent underwent LAD stenting for anterior STEMI at [facility] by Dr. Pruett. He subsequently developed atrial fibrillation requiring initiation of Eliquis and amiodarone. He was significantly hypotensive after the coronary intervention which prevented from initiation of GDMT for systolic heart failure. His EF was down to 35%. He has mild cognitive impairment. Nicole have history of bladder cancer followed by urology. Recently after discharge he saw nephrologyand was having lower extremity edema for which Lasix was initiated and improved his edema significantly. No base metabolic profile was ordered. He currently has home health care and later on will be a dvised to get cardiac rehab. EKG today revealed normal sinus rhythm indicating spontaneous conversion but his QTc interval is over 500 ms and because of that the amiodarone dose will be down to 200 mg daily. His lungs sounded clear his card examination was unremarkable. Assessment/recommendations: 1-non-ST elevation myocardial infarction leading to LAD stenting December 2023 at [facility], continue Brilinta, high intensity statin, patient is not on aspirin since he is also on Eliquis 2-post IL paroxysmal atrial fibrillation, currently back in sinus [...] medication use 3. Coronary artery disease involving [place] coronary artery of [place] heart without angina pectoris 4. S/P PTCA (percutaneous transluminal coronary angioplasty) 5. Essential hypertension 6. Dyslipidemia 7. Stage 3a chronic kidney disease (Multi) 8. Transient cerebral ischemia, unspecified type 9. BMI 26.0-26.9,adult 10. Former smoker Scribe Attestation By signing my name below, Pebbles Almendarez LPN , Scribe attest that this documentation has been prepared under the direction and in the presence of Teo Al MD. Provider Attestation - Scribe documentation All medical record entries made by the Scribe were at my direction and personally dictated by me. Dick reviewed the chart and agree that the record accurately reflects my personal performance of the history, physical exam, discussion and plan. documented in this encounterFirelands [facility] Work Phone: 1(392) 376-241809-17-2024 Instructions* Patient Instructions* Pebbles Arcos LPN - 02/10/2024 9:20 AM [...] -28.2 Lbs Provided instructions on dietary changes. * Attachments The following attachments cannot be sent through Care Everywhere. * Heart Healthy Diet ([place]) documented in this encounterFirelands [facility] Work Phone: 1(736) 309-695008-30-2024 Consult note Author Rogelio aRi [facility] January 23, 2024 12:43pm Note Date/Time January 23, 2024 12 :29pm [facility] [address] [place] [address] Physiatry (Rehab) Consult Note Signed Patient: Alex Anderson MR#: [id number] : 1945 Acct:[id number] Age/Sex: 78 / M Adm Date: 4 Loc: 4 Room: [address] [place] [address] Type: ADM IN Attending Dr: Nas Pruett [...] post mid LAD stenting for ST elevation IL (01/15) course complicated by hypotension, atrial fibrillation, [...] Appearance Clear Urine pH 5.5 Ur Specific Kendrick 1.022 Urine Protein Trace H Urine Glucose [...] post mid LAD stenting for ST elevation IL (01/15) course complicated by hypotension, atrial fibrillation, [...] duration of that stay is at least 5- 14 days. They tell me patient would want [...] would recommend SNF closer to home in [place]. I understand this may be a discrepancy [...] chart, including current orders, allied health and alliances consultant notes, labs/imaging and performed diaz elements of exam and I formulated the plan of care and facilitated the medical decision making. I completed a substantive portion of this encounter, the medical decision making portion of this note in its entirety, including Allied health note review, nursing note review, alliances consultant note review, discussion with nursing and case management, and more than 50% of my time was spent on counseling and coordination of care, time spent 40 minutes Documented By: Rogelio Rai MD 01/23/24 1207 Signed By: <Electronically signed by Rogelio Rai MD> 01/23/24 1243 [facility] Work Phone: 1([phone]) 405-850308-30-2024 Progress note Author Isaac Edwards [facility] January 23, 2024 12:01pm Note Date/Time January 23, 2024 11 :59am [facility] [address] [place] [address] Progress Note Signed Patient: Alex Anderson MR#: [id number] : 1945 Acct:[id number] Age/Sex: 78 / M Adm Date: 4 Loc: Room: [address] [place] [address] Type: ADM IN Attending Dr: Nas Pruett [...] signed by MD Isaac Edwards> 01/23/24 1201 [facility] Work Phone: 1(376) 218-415808-30-2024 Consult note Author Rob Almazan [facility] January 23, 2024 3:21pm Note Date/Time January 23, 2024 8: 34am [facility] [address] [place] [address] Hospitalist Consult Note Signed Patient: Alex Anderson MR#: [id number] : 1945 Acct:[id number] Age/Sex: 78 / M Adm Date: 4 Loc: Room: [address] [place] [address] Type: ADM IN Attending Dr: Nas Pruett [...] Problem List clean[facility] Folic acid deficiency Sundowning Tobacco abuse quit april of 2023 Problem List clean-up per request of [facility] Bilateral hydronephrosis TIA (transient ischemic attack) Problem List clean-up per request of [facility] Dyslipidemia Essential hypertension Kidney stones history of Problem List clean-up per request of [facility] Surgical History S/P cystoscopy Status post endovascular [...] PRN PRN Administration Hypotension Melatonin 3 mg 08/29/24 22:23 Melatonin 3 Mg Tablet PO 01/22/25 [...] % (Auto) 64.3, Lymph % (Auto) 15.6, Motley % (Auto) 16.0, Eos % (Auto) 3.6, Baso % (Auto) 0.5, Nucleat RBC Rel Count 0.1, Neut # (Auto) 5.7, Lymph # (Auto) 1.4, Motley # (Auto) 1.4 H, Eos # (Auto) [...] Full Code Documented By: Rob Almazan MD 08 [id number] Signed By: <Electronically signed by Rob Almazan MD> 01/23/[address] [place] [address] Work Phone: 1(109) 385-841108-30-2024 Progress note Author Jakob Lomax [facility] January 23, 2024 12:26am Note Date/Time January 23, 2024 12 :26am [facility] [address] [place] [address] Progress Note Signed Patient: Alex Anderson MR#: [id number] : 1945 Acct:[id number] Age/Sex: 78 / M Adm Date: 4 Loc: 4 Room: [address] [place] [address] Type: ADM IN Attending Dr: Nas Pruett DO Copies to: ~ Date of Service: 01/22/2024 Progress Narrative Note PROGRESS NOTE Progress Note: Patient had a security alert called earlier this evening after getting aggressive with PCT, I responded to the security alert and received full report from bedside and polysomnographer regarding the events. patient did fall but [...] will plan to use Haldol 5mg IM, polysomnographer aware to notify me if needed. Formal consult to come tomorrow Documented By: Jakob Lomax DO 01/23/2421 Signed By: <Electronically signed by Jakob Lomax DO> 01/23/246 [facility] Work Phone: 1(241) 567-915808-29-2024 Progress note Author Teo Al [facility] January 22, 2024 2:01pm Note Date/Time January 22, 2024 2: 01pm [facility] [address] [place] [address] Cardiology Progress Note Signed Patient: Alex Anderson MR#: [id number] : 1945 Acct:[id number] Age/Sex: 78 / M Adm Date: 4 Loc: Room: [address] [place] [address] Type: ADM IN Attending Dr: Nas Pruett [...] need toby found as the next step. medical instrument technician and PT will be consulted Exam Physical [...] heart failure Documented By: Teo Al MD, [facility] 4 1359 Signed By: <Electronically signed by [facility] Teo Al> 01/22/[address] [facility] Work Phone: 1(334) 515-979908-29-2024 Progress note Author Isaac Edwards [facility] January 22, 2024 1:58pm Note Date/Time January 22, 2024 1: 58pm [facility] [address] [place] [address] Pulmonology Progress Note Signed Patient: Alex Anderson MR#: [id number] : 1945 Acct:[id number] Age/Sex: 78 / M Adm Date: 4 Loc: 4 Room: [address] [place] [address] Type: ADM IN Attending Dr: Nas Pruett DO Copies to: ~ Date of Service: 01/22/2024 Exam Physical Exam Vital Signs: Temp Pulse Resp BP Pulse Ox O2 Del Method O2 Flow Rate 98.4 F 64 16 98/65 L 96 Room Air 2 01/22/24 11:21 01/22/24 11:21 01/22/24 11:21 01/22/24 11:21 01/22/24 11:01/22/24 11:01/19/24 10:00 Const General: cooperative Orientation: alert [...] peripherally. Documented By: Isaac Edwards MD 4 1352 Signed By: <Electronically signed by MD Isaac Edwards> 01/22/24 1466 [facility] Work Phone: 1(181) 762-209108-28-2024 Progress note Author Teo Al [facility] January 21, 2024 5:24pm Note Date/Time January 21, 2024 5: 24pm [facility] [address] [place] [address] Cardiology Progress Note Signed Patient: Alex Anderson MR#: [id number] : 1945 Acct:[id number] Age/Sex: 78 / M Adm Date: 4 Loc: 4P Room: [address] [place] [address] Type: ADM IN Attending Dr: Nas Pruett [...] % (Auto) 64.3 Lymph % (Auto) 15.6 Motley % (Auto) 16.0 Eos % (Auto) 3.6 Baso % (Auto) 0.5 Nucleat RBC Rel Count 0.1 Neut # (Auto) 5.7 Lymph # (Auto) 1.4 Motley # (Auto) 1.4 H Eos # (Auto) [...] heart failure Documented By: Teo Al MD, [facility] 4 6579 Signed By: <Electronically signed by MD [place] Al> 01/21/24 1724 [facility] Work Phone: 1(510) 435-962508-28-2024 Progress note Author Isaac Edwards [facility] January 21, 2024 11:45am Note Date/Time January 21, 2024 11 :31am [facility] [address] [place] [address] Pulmonology Progress Note Signed Patient: Alex Anderson MR#: [id number] : 1945 Acct:[id number] Age/Sex: 78 / M Adm Date: 4 Loc: Room: [address] [place] [address] Type: ADM IN Attending Dr: Nas Pruett [...] 1128 Signed By: <Electronically signed by MD Isaca Edwards> 01/21/24 3602 [facility] Work Phone: 1(637) 160-579108-27-2024 Progress note Author Teo Al [facility] January 20, 2024 3:58pm Note Date/Time January 20, 2024 3: 58pm [facility] [address] [place] [address] Cardiology Progress Note Signed Patient: Alex Anderson MR#: [id number] : 1945 Acct:[id number] Age/Sex: 78 / M Adm Date: 4 Loc: Room: [address] [place] [address] Type: ADM IN Attending Dr: Nas Pruett [...] 12:00 01/20/24 15:01/20/24 15:00 01/20/24 15:00 01/20/24 15:00 01/20/24 15:00 [...] % (Auto) 71.9 Lymph % (Auto) 11.8 Motley % (Auto) 14.3 Eos % (Auto) 1.7 Baso % (Auto) 0.3 Nucleat RBC Rel Count 0.0 Neut # (Auto) 6.8 Lymph # (Auto) 1.1 Motley # (Auto) 1.4 H Eos # (Auto) [...] heart failure Documented By: Teo Al MD, [facility] 4 9310 Signed By: <Electronically signed by MD NJ Al> 01/20/[address] [facility] Work Phone: 1(974) 160-277008-27-2024 Progress note Author Isaac Edwards [facility] January 20, 2024 12:59pm Note Date/Time January 20, 2024 8: 53am [facility] [address] [place] [address] Pulmonology Progress Note Signed Patient: Alex Anderson MR#: [id number] : 1945 Acct:[id number] Age/Sex: 78 / M Adm Date: 4 Loc: Room: [address] [place] [address] Type: ADM IN Attending Dr: Nas Pruett [...] <Electronically signed by MD Isaac Edwards> 01/20/24 1274 [facility] Work Phone: 1(260) 373-865508-26-2024 Progress note Author Isaac Edwards [facility] January 19, 2024 1:20pm Note Date/Time January 19, 2024 9: 06am [facility] [address] [place] [address] Pulmonology Progress Note Signed with Addenda Patient: Alex Anderson MR#: [id number] : 1945 Acct:[id number] Age/Sex: 78 / M Adm Date: 4 Loc: Room: [address] [place] [address] Type: ADM IN Attending Dr: Nas Pruett [...] signed by MD Isaac Edwards> 01/19/24 1219 [facility] Work Phone: 1(484) 663-766308-26-2024 Progress note Author Teo Al [facility] January 19, 2024 12:11pm Note Date/Time January 19, 2024 12 :11pm [facility] [address] [place] [address] Cardiology Progress Note Signed Patient: Alex Adnerson MR#: [id number] : 1945 Acct:[id number] Age/Sex: 78 / M Adm Date: 4 Loc: Room: [address] [place] [address] Type: ADM IN Attending Dr: Nas Pruett [...] 01/19/24 11:00 01/19/24 11:00 01/19/24 11:00 01/19/24 11:01/19/24 10:00 Const General: cooperative, comfortable and [...] % (Auto) 78.5 Lymph % (Auto) 8.8 Motley % (Auto) 11.9 Eos % (Auto) 0.4 Baso % (Auto) 0.4 Nucleat RBC Rel Count 0.1 Neut # (Auto) 8.6 H Lymph # (Auto) 1.0 Motley # (Auto) 1.3 H Eos # (Auto) [...] heart failure Documented By: Teo Al MD, [facility] 4 1206 Signed By: <Electronically signed by [facility] Al> 01/19/24 1211 [facility] Work Phone: 1(915) 523-705208-25-2024 Progress note Author [facility] January 18, 2024 3:10pm Note Date/Time January 18, 2024 3: 10pm [facility] [address] [place] [address] Pulmonology Progress Note Signed Patient: Alex Anderson MR#: [id number] : 1945 Acct:[id number] Age/Sex: 78 / M Adm Date: 4 Loc: Room: [address] [place] [address] Type: ADM IN Attending Dr: Nas Pruett [...] managing post PCI/stent in LAD for acute IL. He is on beta- maldonado, antiplatelets, statin, [...] following Documented By: Justina Lara MD 01/18/24 9633 Signed By: <Electronically signed by Justina Lara MD> 01/18/24 6293 [facility] Work Phone: 1(419) 307-315808-25-2024 Progress note Author Ana Castro [facility] January 18, 2024 12:49pm Note Date/Time January 18, 2024 12 :50pm [facility] [address] [place], [place] [id number] Cardiology Progress Note Signed Patient: Alex Anderson MR#: [id number] : 1945 Acct:[id number] Age/Sex: 78 / M Adm Date: 4 Loc: Room: [address] [place] [address] Type: ADM IN Attending Dr: Nas Pruett [...] MPV Neut % (Auto) Lymph % (Auto) Motley % (Auto) Eos % (Auto) Baso % (Auto) Nucleat RBC Rel Count Neut # (Auto) Lymph # (Auto) Motley # (Auto) Eos # (Auto) Baso # (Auto) PHA Creatinine Clear Sodium Potassium Chloride Carbon Dioxide Anion Gap BUN Creatinine Est GFR (CKD-EPI) Glucose POC Glucose 115 126 Calcium Urine Color Light-yellow Urine Appearance Cloudy A Urine pH 6.0 Ur Specific Kendrick 1.018 Urine Protein Trace H Urine Glucose [...] % (Auto) 75.1 Lymph % (Auto) 11.5 Motley % (Auto) 12.8 Eos % (Auto) 0.2 Baso % (Auto) 0.4 Nucleat RBC Rel Count 0.0 Neut # (Auto) 9.1 H Lymph # (Auto) 1.4 Motley # (Auto) 1.5 H Eos # (Auto) 0.0 Baso # (Auto) 0.0 PHA Creatinine Clear 46.65 Sodium 136 Potassium 3.7 Chloride 107 Carbon Dioxide 21.2 Anion Gap 11.5 BUN 29 H Creatinine 1.59 H Est GFR (CKD-EPI) 43.613 Glucose 125 H POC Glucose Calcium 8.7 Urine Color Urine Appearance Urine pH Ur Specific Kendrick Urine Protein Urine Glucose (UA) Urine Ketones [...] signed by MD Ana Castro> 01/18/[address] [facility] Work Phone: 1(229) 305-420408-24-2024 Progress note Author Ana Castro [facility] January 17, 2024 12:43pm Note Date/Time January 17, 2024 12 :43pm [facility] [address] [place] [address] Cardiology Progress Note Signed Patient: Alex Anderson MR#: [id number] : 1945 Acct:[id number] Age/Sex: 78 / M Adm Date: 4 Loc: Room: [address] [place] [address] Type: ADM IN Attending Dr: Nas Pruett DO Copies to: ~ Date of Service: 01/17/2024 Subjective Interval history: Patient without chest pain. Very hard of hearing. Significant troponin rise. LVEF around 30% Exam Physical Exam Vital Signs: Temp Pulse Resp BP Pulse Ox O2 Del Method O2 Flow Rate 98.7 F 92 20 107/68 93 L Room Air 3 01/17/24 03:38 08/24/24 11:00 01/17/24 11:00 01/17/24 11:00 01/17/24 11:00 [...] MPV Neut % (Auto) Lymph % (Auto) Motley % (Auto) Eos % (Auto) Baso % (Auto) Nucleat RBC Rel Count Neut # (Auto) Lymph # (Auto) Motley # (Auto) Eos # (Auto) Baso # (Auto) Platelet Estimate Plt Morphology Comment RBC Morphology PHA Creatinine Clear Sodium Potassium Chloride Carbon Dioxide Anion Gap BUN Creatinine Est GFR (CKD-EPI) Glucose POC Glucose POC Glucose Comment Calcium Troponin I High Sens 25133.4 H* 159208.2 H* 960635.4 H* Triglycerides Cholesterol LDL Cholesterol, Calc VLDL Cholesterol HDL Cholesterol Cholesterol/HDL Ratio 01/16/24 01/16/24 01/16/24 18:37 19:15 21:31 Corrected WBC Uncorrected WBC Count RBC Hgb Hct MCV MCH MCHC RDW Plt Count MPV Neut % (Auto) Lymph % (Auto) Motley % (Auto) Eos % (Auto) Baso % (Auto) Nucleat RBC Rel Count Neut # (Auto) Lymph # (Auto) Motley # (Auto) Eos # (Auto) Baso # (Auto) Platelet Estimate Plt Morphology Comment RBC Morphology PHA Creatinine Clear Sodium Potassium Chloride Carbon Dioxide Anion Gap BUN Creatinine Est GFR (CKD-EPI) Glucose POC Glucose 119 118 POC Glucose Comment Glu2: cleaned meter Calcium Troponin I High Sens 48342.2 H* Triglycerides Cholesterol LDL Cholesterol, Calc VLDL Cholesterol HDL Cholesterol Cholesterol/HDL Ratio 01/17/24 01/17/24 01/17/24 04:37 07:14 11:52 Corrected WBC 17.7 H Uncorrected WBC Count 17.7 H RBC 4.46 Hgb 12.7 L Hct 38.4 L MCV 86.1 MCH 28.4 MCHC 33.0 RDW 15.8 H Plt Count 135 L MPV 9.0 Neut % (Auto) 77.1 Lymph % (Auto) 6.9 Motley % (Auto) 15.6 Eos % (Auto) 0.0 Baso % (Auto) 0.4 Nucleat RBC Rel Count 0.0 Neut # (Auto) 13.6 H Lymph # (Auto) 1.2 Motley # (Auto) 2.8 H Eos # (Auto) [...] Comment Calcium 8.9 Troponin I High Sens 35992.6 H* Triglycerides 67 Cholesterol 74 L LDL [...] signed by MD Ana Castro> 01/17/24 1243 [facility] Work Phone: 1(566) 369-543008-24-2024 Progress note Author Justina Lara [facility] January 17, 2024 11:57am Note Date/Time January 17, 2024 11 :54am [facility] [address] [place] [address] Pulmonology Progress Note Signed Patient: Alex Anderson MR#: [id number] : 1945 Acct:[id number] Age/Sex: 78 / M Adm Date: 4 Loc: Room: [address] [place] [address] Type: ADM IN Attending Dr: Nas Pruett [...] managing post PCI/stent in LAD for acute IL. He is on beta- maldonado, antiplatelets, statin, [...] signed by Justina Lara MD> 01/17/24 1157 [facility] Work Phone: 1(213) 239-391208-23-2024 Consult note Author Justina Lara [facility] January 16, 2024 3:19pm Note Date/Time January 16, 2024 3: 16pm [facility] [address] [place] [address] Pulmonology Consult Note Signed Patient: Alex Anderson MR#: [id number] : 1945 Acct:[id number] Age/Sex: 78 / M Adm Date: 4 Loc: Room: [address] [place] [address] Type: REG SDC Attending Dr: Nas Pruett [...] abdominal pain nausea was diagnosed with acute IL and transferred from [facility]. He underwent left heart catheterization and stent in mid LAD Review of Systems Review of Systems All other systems reviewed & are negative unless noted below or in HPI Constitutional Constitutional: Reports as per HPI Cardiovascular Cardiovascular: Reports as per HPI and Reports chest pain at rest [facility] Medical History (Updated 01/16/24 @ 12:52 by Nas Preutt, ) Villarreal catheter in place BPH (benign prostatic [...] cancer Son Family history of mental disorder [facility] Problem: Diagnosed with Mental Illness Social History [...] managing post PCI/stent in LAD for acute IL. He is on beta- maldonado, antiplatelets, statin, antihypertensive medication per cardiology Monitor creatinine post cath Bronchodilators as needed for COPD Chest x-ray in a.m. DVT prophylaxis Lovenox Documented By: Justina Lara MD 01/16/24 1504 Signed By: <Electronically signed by Justina Lara MD> 01/16/24 1119 [facility] Work Phone: 1(542) 519-902308-23-2024 History and physical note Author Nas Pruett [facility] January 16, 2024 12:53pm Note Date/Time January 16, 2024 12 :45pm [facility] [address] [place] [address] Cardiology H&P Signed Patient: Alex Anderson MR#: [id number] : 1945 Acct:[id number] Age/Sex: 78 / M Adm Date: 4 Loc: Room: [address] [place] [address] Type: REG SDC Attending Dr: Nas Pruett DO Copies to: MD Nas Richards, ~ Date of Service: 01/16/2024 Cardiology HPI History of Present Illness Chief complaint: Anterior STEMI HPI: Mr. Anderson is a 78 year old male transferred from [place] with acute anterior ST elevation IL; original phone call taken from outside ER attending at 09:30 AM. Patient arrived in [facility] at 1116, after attempted right femoral approachand [...] of his suspected symptomatology); finally went to [place] ER around 02-01 30 this morning whereupon he was appropriately he diagnosed, appropriate upstream therapy instituted under my direction after discussion with ER attending, and emergently transferred to [facility] for revascularization. Total 60 minutes nonprocedural critical care time were devoted to the outside ERattending and staff, [facility] staff, nursing staff, patient and family pre [...] Interpretations EKG EKG results cardiology: sinus rhythm IL, pacemaker, normal Myocardial infarction: anterior IL (acute or recent) A&P - Cardiology (1) [...] signed by Nas Pruett DO> 01/16/[address] [facility] Work Phone: 1(216) 865-250608-23-2024 Procedure [facility]08-23-2024 Procedure [facility]08-21-2024 Procedure [facility]05-10-2024 Hospital Discharge instructions Patient Education 10/03/2023 [...] Follow these instructions at home: Medicines Take mcbn-gpb-xgxqvym and prescription medicines only as told by [...] provider. Document Revised: 01/31/2021 Document Reviewed: 01/31/2021 [employer] Patient Education 2022 [email or web address]. Follow Up Care 08/15/2023 11:04:15 With:ARLENE CASILLAS, Katia Hall, URL Address: [facility] [address] , [place] [address]- [phone] When: Unknown [facility] [place] 02-05-2024 Hospital Discharge instructions Patient Education 06/30/2023 [...] Follow these instructions at home: Medicines Take bbij-gtk-fjgmujj and prescription medicines only as told by [...] provider. Document Revised: 01/31/2021 Document Reviewed: 01/31/2021 [employer] Patient Education 2022 [email or web address]. Follow Up Care 05/06/2023 11:11:29 With:ARLENE CASILLAS, Katia Hall, URL Address: [facility] [address], [place] [address]- [phone] When: Unknown Comments:1 day for catheter removal [facility] 01-16-2024 Hospital Discharge instructions Patient Education 06/10/2023 [...] cotton underwear to absorb moisture and keep lambskin trimmer. 6. Keep the drainage bag below the [...] JACOBS Address: [facility] [address] [place] [address]- Business (1) When:06/24/2023 15:15:55 Comments:for villarreal removal [facility]12-12-2023 Evaluation note* Encounter Date Diagnosis Assessment Notes Treatment Notes Treatment Clinical Notes Apr, Primary hypertension (ICD-10 - I10) [facility] Other [id number] Evaluation note* Encounter Date Diagnosis Assessment Notes [...] supplement. I asked the patient to continue qmrc-hvn-aiuasxv iron supplement once or twice daily Mar, Primary hypertension (ICD-10 - I10) BP is elevated. Will start Norvasc 5 mg PO daily. i asked the patient to monitor Bp closely with tapering steroid dose [facility] Other 10-17-2023 Hospital Discharge instructions Patient Education [...] including vitamins, herbs, eye drops, creams, and vjwr-him-sksqlsz medicines. Any problems you or family members [...] provider tells you to take them. Taking rmtb-chw-fdcewhw medicines, vitamins, herbs, and supplements. Surgery safety [...] provider. Document Revised: 02/05/2022 Document Reviewed: 02/05/2022 [employer] Patient Education 2022 [email or web address]. 03/11/2023 14:15:06 Benign Prostatic Hyperplasia Benign Prostatic [...] urethra. Follow these instructions at home: Take eyil-wen-qbfbgzs and prescription medicines only as told by [...] provider. Document Revised: 11/28/2021 Document Reviewed: 11/28/2021 [employer] Patient Education 2022 [email or web address]. Follow Up Care 02/07/2023 16:01:50 With:ARLENE CASILLAS, Katia Hall, URL Address: [facility] [address] , [place] [address]- When:Within 3 Month(s) Comments:Sched cysto/FISH/Cytol/BT check [facility] 10-17-2023 Evaluation + Plan note Diagnostic Tests Pending * UroVysion Fish and Urine Cyto ([facility]) 03/11/23 [facility]07-18-2023 Evaluation + Plan note Diagnostic Tests Pending * UroVysion Fish and Urine Cyto ([facility]) 12/10/22 [facility]07-18-2023 Hospital Discharge instructions Patient Education 12/10/2022 08:17:13 [...] if anything looks unusual. Men with a nsywtj-oyla-dvzkvb risk for skin cancer may want to see a skin former (roll up operator) for an annual body check. What are the benefits of screening? Cancer screening is done to look for cancer in the very early stages, before it spreads and becomesharder to treat and before you would start to notice symptoms. Finding cancer early improves the chances of successful treatment. It may save your life. Where to find more information [employer]: www.cancer.org Centers for Disease Control and Prevention: www.cdc.gov National Cancer Steedman: www.cancer.gov Contact a health care provider if: [...] provider. Document Revised: 10/08/2021 Document Reviewed: 04/07/2020 [employer] Patient Education 2022 [email or web address]. Follow Up Care 11/15/2022 14:27:10 With:ARLENE CASILLAS, Katia Hall, URL Address: [facility] [address] , [place] [address]- When: Unknown [facility] 04-26-2023 Hospital Discharge instructions Patient Education [...] cells. Follow these instructions at home: Take ugej-gcz-camdlmt and prescription medicines only as told by [...] is important. Where to find more information [employer] (ACS): cancer.org National Cancer Steedman (NCI): cancer.gov Contact a health care provider [...] provider. Document Revised: 04/22/2022 Document Reviewed: 04/22/2022 [employer] Patient Education 2022 [email or web address]. Follow Up Care 08/26/2022 14:12:46 With:ARLENE CASILLAS, Katia Hall, URL Address: [facility] [address] , [place] [address]- When: Unknown [facility] 04-10-2023 NoteEXAM: XR CHEST 2 V HISTORY: Pre-surgery evaluation COMPARISON: None. TECHNIQUE: PA and lateral views of the chest. FINDINGS: The cardiomediastinal silhouette is normal. No focal consolidation is identified. There is no pneumothorax. No pleural effusion is noted. The osseous structures are intact. IMPRESSION: No acute cardiopulmonary process. Electronically authenticated by: CORKY FORD Date: 2022-09-02 14:17[facility]03-29-2023 Evaluation note* Encounter Date Diagnosis Assessment [...] have his bladder tumor removal as scheduled. [facility] Other 03-08-2023 Evaluation + Plan note Diagnostic Tests Pending * UroVysion Fish and Urine Cyto ([facility]) 07/31/22 [facility] 03-08-2023 Hospital Discharge instructions Patient [...] including vitamins, herbs, eye drops, creams, and dwqa-xfc-tcmuvwy medicines. Any problems you or family members [...] provider tells you to take them. Taking aymd-gfw-qufseye medicines, vitamins, herbs, and supplements. Tests You [...] 03/08/2010 Document Revised: 12/11/2018 Document Reviewed: 12/11/2018 [employer] Patient Education 2020 [email or web address]. Follow Up Care 07/25/2022 10:56:51 With:ARLENE CASILLAS, Katia Hall, URL Address: [facility] [address], [place] [address]- When: Unknown [facility] 03-02-2023 Evaluation note* Encounter Date [...] some bladder issues. I did call the [employer]. The device is compatible up to 3 Maggi for MRI. I explained this to the family and the patient. Jul, Other specified postprocedural states (ICD-10 - Z98.890) Jul, Personal history of other diseases of the circulatory system (ICD-10 - Z86.79) [facility]-25[facility]2023 Evaluation note* Encounter Date Diagnosis Assessment [...] plan to do this percutaneously under MAC. [facility] Other 01-17-2023 Hospital Discharge instructions Patient Education [...] including vitamins, herbs, eye drops, creams, and mjug-hyv-ckzmdfx medicines. Any problems you or family members [...] provider tells you to take them. ?Taking surt-ifx-xzjxgza medicines, vitamins, herbs, and supplements. Follow instructions [...] Follow these instructions at home: Medicines Take znkd-cyo-aqmbdaj and prescription medicines only as told by [...] 05/09/2001 Document Revised: 05/04/2019 Document Reviewed: 05/04/2019 [employer] Patient Education 2020 [email or web address]. Follow Up Care 05/22/2022 13:37:28 With:[facility] Address: [address] [place] [address] Business (1) When: Unknown Comments:our dental scheduler will be contacting you for follow-up [facility] 01-12-2023 Evaluation note* Encounter Date Diagnosis Assessment [...] to proceed all his questions were addressed. [facility] Other 01-10-2023 Evaluation note* Encounter Date Diagnosis [...] (ICD-10 - E78.5) Patient is on statin [facility] Other Discharge summary Author Teo Al [facility] January 23, 2024 3:52pm Note Date/Time January 23, 2024 3: 52pm [facility] [address] [place] [address] Discharge Summary Signed Patient: Alex Anderson MR#: [id number] : 1945 Acct:[id number] Age/Sex: 78 / M Adm Date: 4 Loc: 4 Room: [address] [place] [address]: Nas Pruett DO Copies to: MD Teo Richards MD, [facility] Nas Pruett DO~ Providers Date of [...] Consult to Physiatry Routine Comment: Consulting Provider: [facility] - Phys Med - Rehab Reason For [...] Course Hospital course: Patient was transferred from [facility] emergency department with anterior ST elevation myocardial infarction and was taken straight to the [facility] by Dr. Pruett and underwent urgent PCI [...] Vessel LAD KATHERIN - W Dariusz Pruett, p CL Iliac/Fem w/LHC - W Dariusz Pruett DO Discharge Plan Discharge Plan Patient Disposition: [...] doctor or pharmacist, without first calling the nanotechnology engineering technician who implanted the stent. If you require [...] weight lifting, stair steppers, etc. until the nanotechnology engineering technician approves these activities. Check with the nanotechnology engineering technician on your first follow-up visit. CALL YOUR GRADE FOREMAN: -If bleeding should occur from the catheter insertion site- apply pressure to the site then immediately call us. -Report any fever, redness, drainage, increased swelling, or firmness at the catheter insertion site. Some bruising or slight swelling may be present at thetime of discharge. -Should arm or leg become cold, numb, white, or blue, contact the nanotechnology engineering technician immediately. -IF you should experience episodes of [...] Cardiopulmonary Rehabilitation program is recommended. The attending nanotechnology engineering technician or a nurse clinician should provide you with specificinstructions regarding activity, diet, medications, and further follow up for you. Follow the medication instructions provided on your discharge. If the dosages and instructions on this sheet differ from the dosage and instructions on the bottle, follow the instructions on the bottle. [facility] is not responsible for incorrect prescription [...] Appearance Clear, Urine pH 5.5, Ur Specific Kendrick 1.022, Urine Protein Trace H, Urine Glucose (UA) Normal, Urine Ketones Negative, Urine Occult Blood 2+ H, Urine Nitrite Negative, Urine Bilirubin Negative, Urine Urobilinogen 2 H, Ur Leukocyte Esterase 4+ H, Urine RBC 20-49 H, Urine WBC 20-49 H, Urine WBC Clumps Rare H, Ur Squamous Epith CellsN/A, Urine Bacteria Rare, Hyaline Casts None, Urine Mucus Rare Documented By: Teo Al MD, [facility] 4 1548 Signed By: <Electronically signed by [facility] Teo Al> 01/23/[address] [facility] Work Phone: Evaluation + Plan note No data available for this section [facility] evaluation + Plan note Future Appointments Appointment Date:10/04/2022 10:00:00 AM Scheduled Provider: Location:[facility] Appointment Type:URO Nurse Visit [facility] Evaluation + Plan note Future Appointments Appointment Date:06/16/2023 10:00:00 AM Scheduled Provider: Location:[facility] Appointment Type:URO Nurse Visit Appointment Date:06/30/2023 01:30:00 PM Scheduled Provider:[facility]BS [facility] Office Visit Diagnostic Tests Pending * UroVysion Fish and Urine Cyto ([facility]) [facility]ments Appointment Date:06/30/2023 01:30:00 PM Scheduled Provider:Katia JACOBS MD [facility] Type:[facility] Office Visit [facility] evaluation + Plan note Future Appointments Appointment Date:07/01/2023 08:30:00 AM Scheduled Provider: Location:[facility] [place] Appointment Type:URO Nurse Visit [facility] evaluation + Plan note Future Appointments Appointment Date:09/09/2023 02:15:00 PM Scheduled Provider:Katia JACOBS MD Location:[facility] [place] Appointment Type:URO Procedure 15 min [facility] Evaluation + Plan note Future Appointments Appointment Date:10/07/2023 02:45:00 PM Scheduled Provider:Katia JACOBS MD Location:[facility] Appointment Type:URO Procedure 15 min [facility] Evaluation + Plan note Future Appointments Appointment Date:10/31/2023 11:00:00 AM Scheduled Provider: [facility] Type[facility] Nurse Visit [facility] Evaluation + Plan note Future Appointments Appointment Date:10/31/2023 11:00:00 AM Scheduled Provider: [facility] Type:URO Nurse Visit Diagnostic Tests Pending * UroVysion Fish and Urine Cyto ([facility]) [facility]ments Appointment Date:11/04/2023 10:30:00 AM Scheduled Provider: Location:[facility] Appointment Type:URO Nurse Visit [facility] Evaluation + Plan note Future Appointments Appointment Date:12/02/2023 11:00:00 AM Scheduled Provider:TC Boles APRN, [place] Location:[facility] Appointment Type:URO Office Visit [facility] evaluation + Plan note Future Appointments Appointment Date:01/20/2024 11:30:00 AM Scheduled Provider:TC Boles APRN, [place] [facility] Location:[facility] Appointment Type:URO Office Visit [facility] evaluation + Plan note Future Appointments Appointment Date:04/06/2024 11:00:00 AM Scheduled Provider:Katia JACOBS MD Location:[facility] Appointment Type:URO Procedure 15 min [facility] evaluation + Plan note Future Appointments Appointment Date:05/06/2024 12:30:00 PM Scheduled Provider:Fabi Antonio Location:[facility] Appointment Type:URO Office Visit Appointment Date:10/05/2024 02:00:00 PM Scheduled Provider:Katia JACOBS MD Location:[facility] Appointment Type:URO Procedure 15 min [facility] Evaluation + Plan note Future Appointments Appointment Date:05/06/2024 12:30:00 PM Scheduled Provider:Fabi Antonio Location:[facility] Appointment Type:URO Office Visit Appointment Date:10/05/2024 02:00:00 PM Scheduled Provider:Katia JACOBS MD Location:[facility] Appointment Type:URO Procedure 15 min Diagnostic Tests Pending * UroVysion Fish and Urine Cyto ([facility]) 04/06/24 [facility] Evaluation + Plan note Future Appointments Appointment Date:06/29/2024 10:00:00 AM Scheduled Provider:HEATHER OMALLEY PA-C Location:[facility] Appointment Type:URO Office Visit Appointment Date:10/05/2024 02:00:00 PM Scheduled Provider:Katia JACOBS MD Location:[facility] Appointment Type:URO Procedure 15 min [facility] Evaluation + Plan note Future Appointments Appointment Date:08/12/2024 11:20:00 AM Scheduled Provider:HEATHER OMALLEY PA-C Location:[facility] Appointment Type:URO Complex Office Visit Appointment Date:10/05/2024 02:00:00 PM Scheduled Provider:Katia JACOBS MD Location:[facility] Appointment Type:URO Procedure 15 min [facility] evaluation + Plan note Future Appointments Appointment Date:11/16/2024 02:00:00 PM Scheduled Provider:Katia JACOBS MD Location:[facility] Appointment Type:URO Procedure 15 min [facility] evaluation + Plan note Future Appointments Appointment Date:12/14/2024 11:00:00 AM Scheduled Provider:Eboni Anderson PA-C Location:[facility] Appointment Type:URO Office Visit [facility] Evaluation + Plan note Future Appointments Appointment Date:12/14/2024 11:00:00 AM Scheduled Provider:Eboni Anderson PA-C Location:[facility] Appointment Type:URO Office Visit Diagnostic Tests Pending * UroVysion Fish and Urine Cyto ([facility]) 11/16/24 [facility] Evaluation + Plan note Future Appointments Appointment Date:01/12/2025 12:30:00 PM Scheduled Provider:Eboni Anderson PA-C Location:[facility] Appointment Type:URO Office Visit [facility] evaluation + Plan note Future Appointments Appointment Date:02/10/2025 01:50:00 PM Scheduled Provider:TC Boles APRN, [place] X Location:[facility] Appointment Type:URO Office Visit [facility] evalnsjuwz note* Diagnosis Onset Date Resolution Status AAA [...] tract infection) [facility]: evaluation noteNo assessment information available [facility] Work Phone: evaluganak noteNo [employer] Other evaluajxns note* Diagnosis Onset Date Resolution Status Status post endovascular aneurysm repair (EVAR) acute Abdominal aortic aneurysm without rupture acute Anemia acute Chronic kidney disease, stage 3b acute Hyperlipidemia acute Hypertensive nephropathy acu te Iron deficiency [facility]* Diagnosis Onset Date Resolution Status Abdominal aortic aneurysm without rupture acute Anemia acute Chronic kidney disease, stage 3b acute Hyperlipidemia acute Hypertensive nephropathy acu te Iron deficiency acute [facility]: [facility] note* Diagnosis Onset Date Resolution Status Abdominal aortic aneurysm without rupture acute Atrial fibrillation, new onset acute Chronic kidney disease, stage 3b acute Chronic systolic heart failure acute Delirium acute Hyperlipidemia acute Hypertension acute Hypertensive nephropathy acu te Hypotension acute Impaired mobility and activities of daily living acute Iron deficiency acute Ischemic cardiomyopathy acut e Sleep-wake cycle disorder ac [place] elevation myocardial infa rction (STEMI) of anterior wall acute Status post endovascular aneurysm repair (EVAR) acute Stented coronary artery acut e [facility] Work Phone: Evaluation note* Diagnosis Onset Date Resolution Status Abdominal aortic aneurysm without rupture acute Atrial fibrillation, new onset acute Chronic kidney disease, stage 3b acute Chronic systolic heart failure acute Hyperlipidemia acute Hypertensive nephropathy acu te Hypotension acute Impaired mobility and activities of daily living acute Iron deficiency acute Ischemic cardiomyopathy acut e Sleep-wake cycle disorder ac [place] elevation myocardial infa rction (STEMI) of anterior wall acute Status post endovascular aneurysm repair (EVAR) acute Stented coronary artery acut e Delirium resolved Abdominal aortic aneurysm without rupture acute Anemia acute CHF (congestive heart failure) acute Chronic kidney disease, stage 3b acute Hyperlipidemia acute Hypertensive nephropathy acu te Iron deficiency acute Obstructive nephropathy acut e [facility] Work Phone: Evaluation note* Diagnosis Paroxysmal atrial fibrillation (Multi) Atrial fibrillation documented in this encounter [facility] Work Phone: Evaluation note* Diagnosis Pneumonia of [...] cardiomyopathy acut e Sleep-wake cycle disorder ac [place] elevation myocardial infa rction (STEMI) of anterior wall acute Status post endovascular aneurysm repair (EVAR) acute Stented coronary artery acut e Delirium resolved Abdominal aortic aneurysm without rupture acute Anemia acute CHF (congestive heart failure) acute Chronic kidney disease, stage 3b acute Hyperlipidemia acute Hypertensive nephropathy acu te Iron deficiency acute Obstructive nephropathy acut e Chest congestion noneactive [facility] Work Phone: Evaluation note* Diagnosis Onset Date Resolution Status Abdominal aortic aneurysm without rupture acute Atrial fibrillation, new onset acute Chronic kidney disease, stage 3b acute Chronic systolic heart failure acute Hyperlipidemia acute Hypertensive nephropathy acu te Hypotension acute Impaired mobility and activities of daily living acute Iron deficiency acute Ischemic cardiomyopathy acut e Sleep-wake cycle disorder ac [place] elevation myocardial infa rction (STEMI) of [...] noneactive Right lower lobe pneumonia n oneactive [facility] Work Phone: Evaluation note* Diagnosis Pneumonia of right lower lobe due to infectious organism documented in this encounter [facility] HealthcareEvaluation note* Diagnosis Coronary artery disease involving [place] coronary artery of [place] heart without angina pectoris- Primary Paroxysmal atrial [...] health QT prolongation documented in this encounter [facility] Work Phone: Evaluation note* Diagnosis Simple chronic bronchitis (CMS/HCC) Simple chronic bronchitis documented in this encounter [facility] HealthcareEvaluation note* Diagnosis Paroxysmal atrial fibrillation (Multi) Atrial fibrillation High risk medication use Coronary artery disease involving [place] coronary artery of [place] heart without angina pectoris S/P PTCA (percutaneous [...] hazards to health documented in this encounter [facility] Work Phone: Evaluation note* Diagnosis Essential hypertension, benign (CMS/HCC) Essential hypertension, benign Hypertensive nephropathy (CMS/HCC) Unspecified hypertensive kidney disease with chronic kidney disease stage I through stage IV, or unspecified Stage 3a chronic kidney disease (HCC) ([facility]/HCC) Microalbuminuria Proteinuria Panlobular emphysema (CMS/HCC) Other emphysema Simple chronic bronchitis ([facility]/HCC) Simple chronic bronchitis Mixed dyslipidemia ([facility]/HCC) Polypharmacy Issue of repeat prescriptions Mixed conductive and sensorineural hearing loss of both ears Former smoker Personal history of tobacco use, presenting hazards to health Overweight documented in this encounter [facility] HealthcareEvaluation note* Diagnosis Encounter for Medicare annual wellness exam- Primary Advance directive discussed with patient Encounter for screening for other disorder Screening for alcohol problem Screening for alcoholism Former smoker Personal history of tobacco use, presenting hazards to health Overweight documented in this encounter [facility] HealthcareEvaluation note* Diagnosis Cardiomyopathy, ischemic- Primary Other specified forms of chronic ischemic heart disease Coronary artery disease involving [place] coronary artery of [place] heart without angina pectoris Paroxysmal atrial fibrillation (Multi) Atrial fibrillation High risk medication use S/P PTCA (percutaneous transluminal coronary angioplasty) Postsurgical percutaneous transluminal coronary angioplasty status ST elevation myocardial infarction (STEMI), unspecified artery (Multi) Infrarenal abdominal aortic aneurysm (AAA) without rupture ([facility]) Essential hypertension Unspecified essential hypertension Dyslipidemia Other and unspecified hyperlipidemia Stage 3a chronic kidney disease (Multi) Transient cerebral ischemia, unspecified type Hematuria, unspecified type Hyperthyroidism Thyrotoxicosis without mention of goiter or other cause, without mention of thyrotoxic crisis or storm BMI 26.0-26.9,adult Former smoker Personal history of tobacco use, presenting hazards to health documented in this encounter [facility] Work Phone: Evaluation note* Diagnosis ST elevation myocardial infarction (STEMI), unspecified artery (Multi) Cardiomyopathy, ischemic Other specified forms of chronic ischemic heart disease Coronary artery disease involving [place] coronary artery of [place] heart without angina pectoris S/P PTCA (percutaneous transluminal coronary angioplasty) Postsurgical percutaneous transluminal coronary angioplasty status documented in this encounter [facility] Work Phone: Evaluation note* Diagnosis Onset Date Resolution Status Admit Date Abdominal aortic aneurysm wi thout rupture acute August 11, 2024 10:25am Anemia acute August 11 10:25am CHF (congestive heart failure) acute August 11, 2024 10:25am Chronic kidney disease, stage 3b acu te August 11, 2024 10:25am Hyperlipidemia acute July 10:25am Hypertensive nephropathy acute August 11, 2024 10:25am Iron deficiency acute July 10:25am Obstructive nephropathy acute 2024 10:25am [facility] Work Phone: Evaluation note* Diagnosis Recurrent UTI- Primary Urinary tract infection, site not specified Need for prophylaxis against urinary tract infection documented in this encounter [facility] HealthcareEvaluation note* Diagnosis Cardiomyopathy, ischemic Other specified forms of chronic ischemic heart disease Coronary artery disease involving [place] coronary artery of [place] heart without angina pectoris S/P PTCA (percutaneous transluminal coronary angioplasty) Postsurgical percutaneous transluminal coronary angioplasty status ST elevation myocardial infarction (STEMI), unspecified artery (Multi) Paroxysmal atrial fibrillation (Multi) Atrial fibrillation High risk medication use Essential hypertension Unspecified essential hypertension Abdominal aortic aneurysm (AAA) greater than 5.5 cm in diameter in male Dyslipidemia Other and unspecified hyperlipidemia Stage 3a chronic kidney disease (Multi) Former smoker Personal history of tobacco use, presenting hazards to health BMI 26.0-26.9,adult documented in this encounter [facility] Work Phone: Evaluation note* Diagnosis 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 disturbance, psychotic disturbance, mood disturbance, or anxiety (CMS/HCC) Hallucinations Need for prophylaxis against urinary tract infection Indwelling urinary catheter present Former smoker Personal history of tobacco use, presenting hazards to health Polypharmacy Issue of repeat prescriptions Overweight documented in this encounter [facility] HealthcareEvaluation note* Diagnosis Community acquired pneumonia of lower lobe of lung- Primary Lower extremity edema Edema Delirium due to another medical condition Cognitive and behavioral changes Other signs and symptoms involving cognition Lower extremity edema Edema Delirium due to another medical condition Acute cystitis without hematuria Acute cystitis DNR (do not resuscitate) discussion Palliative care encounter Encounter for palliative care Goals of care, counseling/discussion Other specified counseling Chronic heart failure (HCC) Heart failure, unspecified Acute metabolic encephalopathy documented in this encounter [facility] HealthEvaluation note* Diagnosis Cardiomyopathy, ischemic- Primary Other specified forms of chronic ischemic heart disease Encounter to establish care with new provider Encounter to discuss treatment options Encounter to discuss test results Other specified counseling Encounter for medication review and counseling High risk medication use ST elevation myocardial infarction (STEMI), unspecified artery (Multi) S/P PTCA (percutaneous transluminal coronary angioplasty) Postsurgical percutaneous transluminal coronary angioplasty status Paroxysmal atrial fibrillation (Multi) Atrial fibrillation Former smoker Personal history of tobacco use, presenting hazards to health Body mass index (BMI) 25.0-25.9, adult Pre-operative cardiovascular examination Ventricular ectopy/arrhythmia, pre-operative cardiovascular exam Pre-operative cardiovascular examination Bradyarrhythmia on pre-operative cardiovascular examination Pre-operative cardiovascular examination, supraventricular arrhythmia Unspecified cardiac dysrhythmia documented in this encounter [facility] Work Phone: Evaluation note* Diagnosis Peripheral vascular disease (CMS/HCC)- Primary Unspecified peripheral vascular disease Presence of stent in artery Encounter for examination following treatment at hospital Pneumonia of left lower lobe due to infectious organism Lower extremity edema Edema Delirium due to another medical condition documented in [facility] encounter [facility]* Diagnosis Pneumonia of left lower lobe due to infectious organism Encounter for examination following treatment at hospital Lower extremity edema Edema Delirium due to another medical condition documented in this encounter [facility]* Diagnosis Venous insufficiency of both lower extremities- Primary Venous stasis dermatitis of right lower extremity 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 disturbance, psychotic disturbance, mood disturbance, or anxiety ([facility]) documented in this encounter [facility] and physical note Author Willy Lambert [facility] January 14, 2024 8:46am Note Date/Time January 14, 2024 8: 46am [facility] [address] [place] [address] Gastroenterology H&P Signed Patient: Alex Anderson MR#: [id number] : 1945 Acct:[id number] Age/Sex: 78 / M Adm Date: 4 Loc: Room: Type: [facility] Attending Dr: Willy Lambert MD Copies to: [...] signed by Willy Lambert MD> 01/14/[address] [facility] Work Phone: Hislhvx general Narrative - Reported* Type Description Date [...] INJ URY, 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, 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 [facility] Other Hiseps[facility] general Narrative - Reported* Type Description Date [...] INJ URY, 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, 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 [facility] Other History general Narrative - Reported* Type [...] 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 Hospitalization History SEE ABOVE [facility] Other Hospital Discharge instructions No data available for this section [facility] Dominic Progress note No data available for this section [facility] for referral (narrative)* Consultation (Routine) - Authorized Specialty Diagnoses / Procedures Referred By Anish womack Referred To Contact Cardiac Rehabilitation Diagnoses Coronary artery disease involving [place] coronary artery of [place] heart without angina pectoris S/P PTCA (percutaneous transluminal coronary angioplasty) ST elevation myocardial infarction (STEMI), unspecified artery (Multi) Teo Al MD [address] [place] [address], [address] [id number] Referral ID Status Reason Start Date Expiration Date Visits Requested Visits Authorized [id number] Authorized Specialty Services Required 02/10/2024 02/09/2025 1 1 Scheduling Instructions [place] * PFT (Routine) - Authorized Specialty Diagnoses / Procedures Referred By Anish womack Referred To Contact Diagnoses Paroxysmal atrial fibrillation (Multi) High risk medication use Procedures Complete Pulmonary Function Test (Spirometry/DLCO/Lung Volumes) Teo Al MD [address] [facility] [address], [address] [address] Referral ID Status Reason Start Date Expiration Date V isits Requested Visits Authorized [id number] Authorized 02/10/2024 02/09/2025 1 1 * Imaging (Routine) - Authorized Specialty Diagnoses / Procedures Referred By Contac t Referred To Contact Radiology Diagnoses Paroxysmal atrial fibrillation (Multi) High risk medication use Procedures XR chest 2 views Teo Al MD [address], [place] [address] [place] [id number] Referral ID Status Reason Start Date Expiration Date Visits Requested Visits Authorized [id number] Authorized Perform Procedure 02/10/2024 02/09/2025 1 1 * Consultation (Routine) - Authorized Specialty Diagnoses / Procedures Referred By Contac t Referred To Contact Cardiology Diagnoses Paroxysmal atrial fibrillation (Multi) Procedures Follow Up In Cardiology Teo Al MD [address], [place] [address] [place] [id number] Teo Al MD [address], [place] [address] [place] [phone] Referral ID Status Reason Start Date Expiration Date V isits Requested Visits Authorized [id number] Authorized 02/10/2024 02/09/2025 1 1 * Cardiovascular (Routine) - Authorized Specialty Diagnoses / Procedures Referred By Contac t Referred To Contact Diagnoses Paroxysmal atrial fibrillation (Multi) Procedures ECG 12 Lead Teo Al MD [address], [place] [address] [place] [id number] Referral ID Status Reason Start Date Expiration Date V isits Requested Visits Authorized [id number] Authorized 02/10/2024 02/09/2025 1 1 * Cardiovascular (Routine) - Authorized Specialty Diagnoses / Procedures Referred By Contac t Referred To Contact Diagnoses Paroxysmal atrial fibrillation (Multi) Procedures ECG 12 Lead Teo Al MD [address] [facility], [address] [place] [address] Referral ID Status Reason Start Date Expiration Date V isits Requested Visits Authorized [id number] Authorized 02/10/2024 02/09/2025 1 1 [facility] Work Phone: Reason for visit Narrative* CV Imaging (Routine) - Authorized Specialty Diagnoses / Procedures Referred By Anish womack Referred To Contact Cardiology Diagnoses ST elevation myocardial infarction (STEMI), unspecified artery (Multi) Cardiomyopathy, ischemic Coronary artery disease involving [place] coronary artery of [place] heart without angina pectoris S/P PTCA (percutaneous transluminal coronary angioplasty) Procedures Transthoracic Echo Limited [place] ECHO TRANSTHORC R-T 2D W/WO M-MODE REC F-UP/LMTD WA DOPPLER ECHO COLOR FLOW VELOCITY MAPPING [place] DOPPLER ECHO PULSE WAVE W/SPECTRAL F-UP/LMTD STD Teo Al MD [address] [facility], [address] [place] [address] Phone: tel: fax: Referral ID Status Reason Start Date Expiration Date Visits Requested Visits Authorized [id number] Authorized Perform Procedure 07/29/2024 07/29/2025 1 1 [facility] Work Phone: Summary Purpose Family History No [...] Date/ Time Advance Directives No April 11:36am Date Activated Date Inactivated Comments 10/04/2024 3:24 PM Date Activated Date Inactivated Comments 10/02/2024 10:49 AM 10/04/2024 3:24 PM Healthcare Agents on File Name Relationship Healthcare Agent Relationshi p Communication Estellavalorie Anderson Spouse Primary Decision Maker Antonio Anderson Child Secondary Decision Maker Lindy Wyatties Child Secondary Decision Maker Documents on File Type Date Recorded Patient Lab Support Service Tech Expl anation ACP-Advance Directive 10/06/2024 4:23 PM ACP-Do Not Resuscitate 10/06/2024 4:22 PM Date Activated Date Inactivated Comments 10/04/2024 3:24 PM 10/05/2024 4:27 PM Date Activated Date Inactivated Comments 10/02/2024 10:49 AM 10/04/2024 3:24 PM Healthcare Agents on File Name Relationship Healthcare Agent Relationshi p Communication Estella Anderson Spouse Primary Decision Maker Antonio Wyatties Child Secondary Decision Maker Lindy Anderson Child Secondary Decision Maker Chief Complaint and Reason for Visit Chief Complaint Admit Date 6 month f/u August 11, 2024 10: 25am 1 YR FOLLOW UP; ABD DUPLEX 9:30A September 9:09am Reason for Visit Admit Date Abdominal aortic aneurysm without ruptur e August 11, 2024 10:25am Anemia August 11, 2024 10: 25am CHF (congestive heart failure) July 10:25am Chronic kidney disease, stage 3b July 242024 10:25am Hyperlipidemia August 11, 2024 10: 25am Hypertensive nephropathy August 11 10:25am Iron deficiency August 11, 2024 10: 25am Obstructive nephropathy August 11, 2024 10:25am Chief Complaint talon I71.4 Reason for Visit [...] YR F/U AAA; CT[place] AT [facility] Chief Complaint I71.4 1 YR F/U AAA; CTA AT [facility] RENAL 6 month f/u Reason for Visit [...] congestion Right lower lobe pneumonia Chief Complaint Admit Date I48.0, Z79.899 May 21, 2024 10:27am 6 month f/u August 11, 2024 10: 25am Reason for Visit Admit Date Abdominal aortic aneurysm without ruptur e August 11, 2024 10:25am Anemia August 11, 2024 10: 25am CHF (congestive heart failure) July 10:25am Chronic kidney disease, stage 3b July 242024 10:25am Hyperlipidemia August 11, 2024 10: 25am Hypertensive nephropathy August 11 10:25am Iron deficiency August 11, 2024 10: 25am Obstructive nephropathy August 11, 2024 10:25am Aneurysm of left popliteal artery September 9:09am Chief Complaint Admit Date 6 month f/u August 11, 2024 10: 25am 1 YR FOLLOW UP; ABD DUPLEX 9:30A September 9:09am Unknown September 28, 2024 6:07pm Chief Complaint Admit Date 6 month f/u August 11, 2024 10: 25am 1 YR FOLLOW UP; ABD DUPLEX 9:30A September 9:09am Unknown September 28, 2024 6:07pm Unknown October 01, 2024 3:40pm Chief Complaint Admit Date 6 month f/u August 11, 2024 10: 25am 1 YR FOLLOW UP; ABD DUPLEX 9:30A September 9:09am Unknown September 28, 2024 6:07pm Unknown October 01, 2024 3:40pm Popliteal Artery Aneurysm October 11, 2024 11:44am Popliteal Artery Aneurysm October 11, 2024 1:56pm renal 3 month f/u November 03, 2024 3:51 pm Reason for Visit Admit Date Abdominal aortic aneurysm without ruptur e August 11, 2024 10:25am Anemia August 11, 2024 10: 25am CHF (congestive heart failure) July 10:25am Chronic kidney disease, stage 3b July 242024 10:25am Hyperlipidemia August 11, 2024 10: 25am Hypertensive nephropathy August 11 10:25am Iron deficiency August 11, 2024 10: 25am Obstructive nephropathy August 11, 2024 10:25am Aneurysm of left popliteal artery September 9:09am Abdominal aortic aneurysm without ruptur e November 03, 2024 3:51pm Anemia November 03, 2024 3:51 pm CHF (congestive heart failure) October 3:51pm Chronic kidney disease, stage 3b November 032024 3:51pm Hyperlipidemia November 03, 2024 3:51 pm Hypertensive nephropathy November 03, 2024 3:51pm Iron deficiency November 03, 2024 3:51 pm Obstructive nephropathy November 03, 2024 3:51pm Chief Complaint * ALEX ANDERSON is being [...] and content) DATE CREATED AUTHOR 05/12/2021 [facility] dical Specialist DATE CREATED AUTHOR AUTHOR'S ORGANIZ ATION 09/23/2022 [facility] DATE CREATED AUTHOR AUTHOR'S ORGANIZ ATION 01/23/2023 [facility] ical Center DATE CREATED AUTHOR AUTHOR'S ORGANIZ ATION 01/23/2023 [email or web address] DATE CREATED AUTHOR AUTHOR'S ORGANIZ ATION 08/03/2024 [facility] ical Center DATE CREATED AUTHOR AUTHOR'S ORGANIZ ATION 08/14/2024 [facility] ical Center DATE CREATED AUTHOR AUTHOR'S ORGANIZ ATION 10/07/2024 [facility] ical Center DATE CREATED AUTHOR AUTHOR'S ORGANIZ ATION 10/08/2024 [facility] DATE CREATED AUTHOR AUTHOR'S ORGANIZ ATION 10/12/2024 [facility] DATE CREATED AUTHOR AUTHOR'S ORGANIZ ATION 10/22/2024 [facility] DATE CREATED AUTHOR AUTHOR'S ORGANIZ ATION 11/10/2024 [facility] ysician [facility] DATE CREATED AUTHOR AUTHOR'S ORGANIZ ATION 11/12/2024 [facility] dical Specialists [facility] DATE CREATED AUTHOR AUTHOR'S ORGANIZ ATION 11/17/2024 [facility] ical Center DATE CREATED AUTHOR AUTHOR'S ORGANIZ ATION 12/15/2024 [facility] DATE CREATED AUTHOR AUTHOR'S ORGANIZ ATION 01/13/2025 [facility] Patient Care team informatio n (unrecognized section and content) Team Status: Active Member Role Status Dates Stanley Emerson MD Primary Care Provider Active Team Status: Inactive Member Role Status Dates Stanley Emerson MD Primary Care Provider Active Start: August 11, 2024 End: August 11, 2024 Preston Griffin MD Attending Provider Active Star t: August 11, 2024 End: August 11, 2024 Team Status: Inactive Member Role Status Dates Stanley Emerson MD Primary Care Provider Active Start: September 23, 2024 End: September 23, 2024 Margarito Valentine MD Attending Provider Active Start: September 23, 2024 End: September 23, 2024 Team Status: Inactive Member Role Status Dates Talya Bo MD Attending Provider Active Sta rt: September 28, 2024 End: September 28, 2024 Team Status: Inactive Member Role Status Dates Robe Hansen DO Attending Provider Active Start : October 01, 2024 End: October 01, 2024 Team Status: Inactive Member Role Status Dates Stanley Emerson MD Primary Care Provider Active Start: October 11, 2024 End: October 11, 2024 Margarito Valentine MD Attending Provider Active Start: October 11, 2024 End: October 11, 2024 Team Status: Active Member Role Status Dates Stanley Emerson MD Primary Care Provider Active Start: October 11, 2024 Margarito Valentine MD Attending Prov ider, Other Provider Active Start: October 11, 2024 Team Status: Active Member Role Status Dates Stanley Emerson MD Primary Care Provider Active Start: October 27, 2024 Preston Griffin MD Attending Provider Active Star t: October 27, 2024 Team Status: Inactive Member Role Status Dates Stanley Emerson MD Primary Care Provider Active Start: November 03, 2024 End: November 03, 2024 Preston Griffin MD Attending Provider Active Star t: November 03, 2024 End: November 03, 2024 Team Status: Active Member Role Status Dates Stanley Emerson MD Primary Care Provider Active Start: August 02, 2024 Preston Griffin MD Attending Provider Active Star t: August 02, 2024 Team Status: Inactive Member Role Status [...] Kyle Ivy MD Other Provider Active Start: Au estefania 2023 End: January 23, 2024 Jad Jaffe MD Other Provider Active Start: Dec ust 2023 End: January 23, 2024 FARHAT Gayle Other [...] Bonds MD Other Provider Active Start: Dec us2023 End: January 23, 2024 Basilio Tam MD Other Provider Active Star t: January 16, 2024 End: January 23, 2024 Reji Garcia MD Other Provider Active Start: A ugust 2023 End: January 23, 2024 Lydia Rene DO Other Provider Active Start: estefania 2023 End: January 23, 2024 Lucas Dumas DO Other Provider Active Start : January 16, 2024 End: January 23, 2024 Corteny Watkins APRN Other Provider Active Start: January [...] Active Start: January 16, 2024 Nas Pruett , Other Provider Active Start : January 16, 2024 Dora Prado APRN ACNP-BC Other Provider Active Start: January 16, 2024 Isaac Edwards MD Other Provider Active Start: January 16, 2024 Ed Velasquez MD Other Provider Active St art: January 16, 2024 Bob Hackett MD Other Provider Active Start: A ust 2023 Dean Perry , Other Provider Active Start: January 16, 2024 Aayush Gallo , Other Provider Active Start: January 16, 2024 Fermin Shukla MD Other Provider Active Start: A [facility] 2023 Kashmir Gonzales MD Other Provider Active [...] Feliz MD Other Provider Active Start: Au [facility] 2023 Rogelio Rai MD Other Provider Active Start: A ust 2023 Heaven Truong APRN Other Provider Active St art: January 23, 2024 Mckay Yeboah Jr, DO Other Provider Active S tart: January 23, 2024 Ryley Hoyt MD Other Provider Active Start: January 23, 2024 Ledy Randle RN Other Provider Active Star t: January 23, 2024 Thu Alvraez RN Other Provider Active Start : January 23, 2024 Jen Delgado , ROCIO Other Provider Active Star t: January 23, 2024 Jennifer Rogel RN Other Provider Active Start: A ugust 2023 Daisha Li RN Other Provider Active Start: 2023 Radha Berrios MD Other Provider Active [...] Provider Active Start: A ugust 2023 Lydia Edgard , DO Other Provider Active Start: [facility] 2023 Lucas Dumas , DO Other Provider Active Start : January 23, 2024 Cortney Watkins APRN Other Provider Active Start: January 23, 2024 Jakob Lomax , Other Provider Active Start: January 23, [...] tart: January 23, 2024 Tico Whitehead , DO Other Provider Active Star t: January 23, 2024 Alonso Maher , Other Provider Active Start: January 23, 2024 Humberto Bonds MD Other Provider Active Start: January 23, 2024 Chi Smith MD Other Provider Active Start: January 23, 2024 Chen Najera APRN Other Provider Active Star t: January 23, 2024 Dana Haddad MD Other Provider Active Start: A ust 2023 Emmanuel Silverman MD Other Provider Active Start: [facility] 2023 Monisha Moore RN Other Provider Active Start: A [facility] 2023 Isaac Edwards MD Attending Provider Active Start: January 23, 2024 Team Status: Active Member Role Status Dates Stanley Emerson MD Primary Care Provider Active Start: January 23, 2024 Nas Pruett , DO Admit Provider, Ot er Provider Active Start: January 23, 2024 Myesha Feliz MD Other Provider Active Start: [facility] 2023 Rogelio Rai MD Attending Provider, Other Provider Active Start: January 23, 2024 Heaven Truong APRN Other Provider Active St art: January 23, 2024 Mckay Yeboah Jr DO Other Provider Active S tart: January [...] Daisha Li RN Other Provider Active Start: 2023 Radha Berrios MD Other Provider Active [...] Other Provider Active Start: Dec Vidya Hernandez NP-Quynh Other Provider Active St art: January 23, [...] Active Start: A ugust 2023 Lydia Rene , DO Other Provider Active Start: Au estefania 2023 Lucas Dumas , DO Other Provider Active Start : January 23, 2024 Cortney Watkins , WATSON Other Provider Active Start: January 23, 2024 Jakob Lomax , Other Provider Active Start: January 23, 2024 Nick Ken MD Other Provider Active Sta rt: January 23, 2024 Yaz Beard ACCOUNT SERVICES REPRESENTATIVE Other Provider Active Start : January 23, 2024 Venus Man , ACCOUNT SERVICES REPRESENTATIVE Other Provider Active St art: January 23, 2024 Joaquim Mayo MD Other Provider Active Start: A ugust 2023 Shane Durham MD Other Provider Active S tart: January 23, 2024 Tico Whitehead , DO Other Provider Active Star t: January 23, 2024 Alonso Maher , DO Other Provider Active Start: January 23, [...] Status Dates Stanley Emerson MD Primary Care [facility], Attending Provider Active Start: September 30, 2023 Team Status: Active Member Role Status Dates Stanley Emerson MD Primary Care Provider Active Start: October 16, 2023 rPeston Griffin MD Attending Provider Active Star t: October 16, 2023 Team Status: Inactive Member Role Status Dates Stanley Emerson MD Primary Care Provider Active Start: October 22, 2023 End: October 22, 2023 Preston Griffin MD Attending Provider Active Star t: [...] Stanley Emerson MD Primary Care Provider Active Preston Griffin MD Attending Provider Active Teo Al [...] February 04, 2024 End: February 04, 2024 Preston Griffin MD Attending Provider Active Star t: February 04, 2024 End: February 04, 2024 It Application Administrator Relationship Specialty Start Date End Date Stanley Emerson MD [address] [place] [address] PCP - General 05/17/22 It Application Administrator Relationship Specialty Start Date End Date Stanley Emerson MD [address] [place] [address] PCP - ACO Reach 10/17/22 Stanley Emerson MD [address] [place] [address] PCP - General Family Medicine 11/20/22 Dora Santiago LPN Licensed Practical Nurse [facility] Medicine 12/22/23 It Application Administrator Relationship Specialty Start Date End Date Stanley Emerson MD [address] [place] [address] PCP - ACO Reach 10/17/22 Stanley Emerson MD [address] [place] [address] PCP - General Family Medicine 11/20/22 Dora Santiago LPN Licensed Practical Nurse [facility] Medicine 12/22/23 Team Status: Inactive Member Role Status Dates Stanley Emerson MD Primary Care Provider Active Start: January 16, 2024 End: January 23, 2024 Nas Pruett DO Admit Provider, Att ending Provider Active Start: January 16, 2024 End: January 23, 2024 Ledy Randle RN Other Provider Active Star t: January 16, 2024 End: January 23, 2024 Thu Alvarez , ROCIO Other Provider Active Start : January 16, 2024 End: January 23, 2024 Jen Deglado , ROCIO Other Provider Active Star t: [...] Anand Mckenzie MD Other Provider Active Start: [facility] 2023 End: January 23, 2024 Roseann Velasco APRN Other Provider Active Start: January 16, 2024 End: January 23, 2024 Jagjit Swenson MD Other Provider Active Start: January 16, 2024 End: January 23, 2024 Pawel Sanford MD Other Provider Active Start: [facility] 2023 End: January 23, 2024 Taz Barnes [...] Garcia MD Other Provider Active Start: A [facility] 2023 End: January 23, 2024 Lydia Rene , Other Provider Active Start: [facility] 2023 End: January 23, 2024 Lucas Dumas [...] Mayo MD Other Provider Active Start: A [facility] 2023 End: January 23, 2024 Shane Durham [...] Haddad MD Other Provider Active Start: A [facility] 2023 End: January 23, 2024 Emmanuel Silverman MD Other Provider Active Start: [facility] 2023 End: January 23, 2024 Monisha Moore RN Other Provider Active Start: A [facility] 2023 End: January 23, 2024 Myesha Feliz [...] Care Provider Active Start: January 16, 2024 Martita Garnica DO Attending Provider Active Sta rt: January [...] March 08, 2024 End: March 08, 2024 It Application Administrator Relationship Specialty Start Date End Date Stanley Emerson MD [address] [place] [address] (Fax) PCP - ACO Reach 10/17/22 [place] [address] [place] [address] [place] [address] PCP - General Family Medicine 11/20/22 Dora Santiago LPN Licensed Practical Nurse Family Medicine 12/22/23 It Application Administrator Relationship Specialty Start Date End Date Stanley Emerson MD [address] [place] [address] (Fax) PCP - ACO Reach 10/17/22 Stanley Emerson MD [address] [place] [address] (Fax) PCP - General Family Medicine 11/20/22 Dora Santiago LPN Licensed Practical Nurse Family Medicine 12/22/23 It Application Administrator Relationship Specialty Start Date End Date Stanley Emerson MD [address] [place] [address] (Fax) PCP - ACO Reach 10/17/22 Stanley Emerson MD [address] [place] [address] (Fax) PCP - General Family Medicine 11/20/22 Dora Santiago LPN Licensed Practical Nurse Family Medicine 12/22/23 It Application Administrator Relationship Specialty Start Date End Date Stanley Emerson MD [address] [place] [address] (Fax) PCP - ACO Reach 10/17/22 Stanley Emerson MD [address] [place] [address] (Fax) PCP - General Family Medicine 11/20/22 Dora Santiago LPN Licensed Practical Nurse Family Medicine 12/22/23 It Application Administrator Relationship Specialty Start Date End Date Stanley Emerson MD [address] [place] [address] (Fax) PCP - ACO Reach 10/17/22 Stanley Emerson MD [address] [place] [address] (Fax) PCP - General Family Medicine 11/20/22 Dora Santiago LPN Licensed Practical Nurse Family Medicine 12/22/23 It Application Administrator Relationship Specialty Start Date End Date Stanley Emerson MD [address] [place] [address] PCP - General 05/17/22 It Application Administrator Relationship Specialty Start Date End Date Stanley Emerson MD [address] [place] [address] (Fax) PCP - ACO Reach 10/17/22 Stanley Emerson MD [address] [place] [address] (Fax) PCP - General Family Medicine 11/20/22 Dora Santiago LPN Licensed Practical Nurse Family Medicine 12/22/23 It Application Administrator Relationship Specialty Start Date End Date Stanley Emerson MD [address] [place] [address] (Fax) PCP - ACO Reach 10/17/22 Stanley Emerson MD [address] [place] [address] (Fax) PCP - General Family Medicine 11/20/22 Dora Santiago LPN Licensed Practical Nurse Family Medicine 12/22/23 It Application Administrator Relationship Specialty Start Date End Date Stanley Emerson MD [address] [place], [place] [address] [address] PCP - General 05/17/22 It Application Administrator Relationship Specialty Start Date End Date Stanley Emerson MD [address] [place] [address] (Fax) PCP - ACO Reach 10/17/22 Stanley Emerson MD [address] [place] [address] (Fax) PCP - General Family Medicine 11/20/22 Dora Santiago LPN Licensed Practical Nurse Family Medicine 12/22/23 It Application Administrator Relationship Specialty Start Date End Date Stanley Emerson MD [address] [place] [address] (Fax) PCP - ACO Reach 10/17/22 Stanley Emerson MD [address] [place] [address] (Fax) PCP - General Family Medicine 11/20/22 Dora Santiago LPN Licensed Practical Nurse Family Medicine 12/22/23 It Application Administrator Relationship Specialty Start Date End Date Stanley Emerson MD [address] [place] [address] (Fax) PCP - ACO Reach 10/17/22 Stanley Emerson MD [address] [place] [address] (Fax) PCP - General Family Medicine 11/20/22 Dora Santiago LPN Licensed Practical Nurse Family Medicine 12/22/23 It Application Administrator Relationship Specialty Start Date End Date Stanley Emerson MD [address] [place] [address] (Fax) PCP - ACO Reach 10/17/22 Stanley Emerson MD [address] [place] [address] (Fax) PCP - General Family Medicine 11/20/22 Dora Santiago LPN Licensed Practical Nurse Family Medicine 12/22/23 It Application Administrator Relationship Specialty Start Date End Date Stanley Emerson MD [address] [place] [address] PCP - General 05/17/22 It Application Administrator Relationship Specialty Start Date End Date Stanley Emerson MD [address] [place] [address] PCP - General 05/17/22 Team Status: Inactive Member Role Status Dates Stanley Emerson MD Primary Care Provider Active Start: May 21, 2024 End: May 21, 2024 Teo Al MD Attending Provider Active St art: May 21, 2024 End: May 21, 2024 It Application Administrator Relationship Specialty Start Date End Date Stanley Emerson MD [address] [place] [address] (Fax) PCP - ACO Reach 10/17/22 Stanley Emerson MD [address] [place] [address] (Fax) PCP - General Family Medicine 11/20/22 Joi Zhang LPN 08/26/24 It Application Administrator Relationship Specialty Start Date End Date Stanley Emerson MD [address] [place] [address] (Fax) PCP - ACO Reach 10/17/22 Stanley Emerson MD [address] [place] [address] (Fax) PCP - General Family Medicine 11/20/22 Dora Santiago LPN Licensed Practical Nurse Family Medicine 12/22/2308/26 Joi Zhang LPN 08/26/24 It Application Administrator Relationship Specialty Start Date End Date Stanley Emerson MD [facility] [address] [place] [id number] PCP - General 05/17/22 It Application Administrator Relationship Specialty Start Date End Date Stanley Emerson MD [address] [place] [address] (Fax) PCP - ACO Reach 10/17/22 Stanley Emerson MD [address] [place] [address] (Fax) PCP - General Family Medicine 11/20/22 Joi Zhang LPN 08/26/24 It Application Administrator Relationship Specialty Start Date End Date Stanley Emerson MD [address] [place] [address] (Fax) PCP - ACO Reach 10/17/22 Stanley Emerson MD [address] [place] [address] (Fax) PCP - General Family Medicine 11/20/22 Joi Zhang LPN 08/26/24 It Application Administrator Relationship Specialty Start Date End Date Stanley Emerson MD [address] [place] [address] (Fax) PCP - ACO Reach 10/17/22 Stanley Emerson MD [address] [place] [address] (Fax) PCP - General Family Medicine 11/20/22 Joi Zhang LPN 08/26/24 It Application Administrator Relationship Specialty Start Date End Date Stanley Emerson MD [address] [place] [address] (Fax) PCP - General 10/02/24 It Application Administrator Relationship Specialty Start Date End Date Stanley Emerson MD [address] [place] [address] (Fax) PCP - General 10/02/24 It Application Administrator Relationship Specialty Start Date End Date Stanley Emerson MD [address] [place] [address] PCP - General 05/17/22 Ruby Montana MD [address] [facility] [address] [facility] [address] [place] [address] Television Maintenance Man Electrophysiology 10/04/24 It Application Administrator Relationship Specialty Start Date End Date Stanley Emerson MD [address] [place] [address] (Fax) PCP - ACO Reach 10/17/22 Stanley Emerson MD [address] [place] [address] (Fax) PCP - General Family Medicine 11/20/22 Joi Zhang LPN 08/26/24 It Application Administrator Relationship Specialty Start Date End Date Stanley Emerson MD [address] [place] [address] (Fax) PCP - ACO Reach 10/17/22 Stanley Emerson MD [address] [place] [address] (Fax) PCP - General Family Medicine 11/20/22 Joi Zhang LPN 08/26/24 It Application Administrator Relationship Specialty Start Date End Date Stanley Emerson MD [address] [place] [address] (Fax) PCP - ACO Reach 10/17/22 Stanley Emerson MD [address] [place] [address] (Fax) PCP - General Family Medicine 11/20/22 Joi Zhang LPN [address] [place] [address] 08/26/24 It Application Administrator Relationship Specialty Start Date End Date Stanley Emerson MD [address] [place] [address] (Fax) PCP - ACO Reach 10/17/22 Stanley Emerson MD [address] [place] [address] (Fax) PCP - General Family Medicine 11/20/22 Joi Zhang LPN [address] [place] [address] 08/26/24 REASON FOR VISIT (unrecogniz ed section and content) Reason Comments ekg visit Specialty Diagnoses / Procedures Referred By Contac t Referred To Contact Diagnoses Paroxysmal atrial fibrillation (Multi) Procedures ECG 12 Lead Teo Al MD [address] [facility] [address] [place] [address] Referral ID Status Reason Start Date Expiration Date V isits Requested Visits Authorized [id number] Authorized 02/10/2024 02/09/2025 1 1 Reason Comments URI Reason Comments Hospital Follow-up [facility] 01/22 Specialty Diagnoses / Procedures Referred By Contac t Referred To Contact Diagnoses Paroxysmal atrial fibrillation (Multi) Procedures ECG 12 Lead Teo Al MD [address] [place] [address] Referral ID Status Reason Start Date Expiration Date V isits Requested Visits Authorized [id number] Authorized 02/10/2024 02/09/2025 1 1 Reason Comments Med Refill Reason Comments Follow-up 3m Specialty Diagnoses / Procedures Referred By Contac t Referred To Contact Cardiology Diagnoses Paroxysmal atrial fibrillation (Multi) Procedures Follow Up In Cardiology Teo Al MD [address] [place] [address] Phone: tel: fax: Teo Al MD [address] [place] [address] Phone: tel: fax: Referral ID Status Reason Start Date Expiration Date V isits Requested Visits Authorized [id number] Authorized 02/10/2024 02/09/2025 1 1 Reason Comments Annual Exam Specialty Diagnoses / Procedures Referred By Contac t Referred To Contact Cardiology Diagnoses Cardiomyopathy, ischemic Procedures Follow Up In Cardiology Teo Al MD [address] [place] [address] Phone: tel: fax: Teo Al MD [address] [place] [address] Phone: tel: fax: Referral ID Status Reason Start Date Expiration Date V isits Requested Visits Authorized [id number] Authorized 05/21/2024 05/21/2025 1 1 Reason Comments Follow-up 1 month follow up ab normal testing Specialty Diagnoses / Procedures Referred By Contac t Referred To Contact Diagnoses Paroxysmal atrial fibrillation (Multi) Procedures ECG 12 Lead Teo Al MD [address] [place] [address] Phone: tel: fax: Referral ID Status Reason Start Date Expiration Date V isits Requested Visits Authorized [id number] Authorized 09/10/2024 09/10/2025 1 1 Reason Comments Hallucinations Reason Comments New Patient Visit Patient is present t o establish care . Patient was referred by cardiology for Paroxysmal atrial fibrillation. Specialty Diagnoses / Procedures Referred By Contac t Referred To Contact Cardiology Diagnoses Cardiomyopathy, ischemic Teo Al MD [address] [facility] [address] [place] [address] Phone: tel: fax: Ruby Montana MD [address] [facility] Office [facility] [place] [address] Phone: tel: fax: Referral ID Status Reason Start Date Expiration Date Visits Requested Visits Authorized [id number] Authorized Specialty Services Required 09/10/2024 09/10/2025 1 1 Goals (unrecognized section and content) Goals may be documented in a n alternate section Ordered Prescriptions (unrec ognized section and content) Prescription Sig Dispense Quantity Refills Last Filled Start Date End Date sulfamethoxazole-t rimethoprim (BACTRIM DS;SEPTRA DS) 800-160 MG per tablet Take 1 tablet by mouth daily for 7 days 7 tablet 10/05/2024 albuterol sulfate HFA (PROVENTIL;VENTOLI N;PROAIR) 108 (90 Base) MCG/ACT inhaler Inhale 2 puffs into the lungs every 6 hours as needed for Wheezing or Shortness of Breath 18 g 10/05/2024 QUEtiapine (SEROQUEL) 25 MG tablet Take 1 tablet by mouth nightly 60 tablet 10/05/2024 rivastigmine (EXELON) 4.6 MG/24HR Place 1 patch onto the skin daily 30 patch 1 10/06/2024 ciprofloxacin (CIPRO) 250 MG tablet Take 1 tablet by mouth every 12 hours for 9 doses 9 tablet 10/05/2024 Scheduled Active and Recently Administ ered Medications (unrecognized section and content) Medication Order 10/03/2024 10/04/2024 10/05/2024 amiodarone (CORDARONE) tablet 200 mg 200 mg, Oral, DAILY, First dose on 10/02/24 at 1130, Until Discontinued 075 (Given - Provider: Mar Gonzalez RN) 0839 (Given - Provider: Jessy Wayne, ROCIO) 0835 (Given - Provider: Coco Mirza RN) atorvastatin (LIPITOR) tablet 80 mg 80 mg, Oral, NIGHTLY, First dose on 10/02/24 at 2100, Until Discontinued 2038 (Given - Provider: Gi Berrios RN) 194 (Given - Provider: Milton Kaiser, ROCIO) 2100 (Due) azithromycin (ZITHROMAX) 500 mg in sodium chloride 0.9 % 250 mL IVPB ([id number]) (COMPLETED) 500 mg, IntraVENous, EVERY 24 HOURS, 2 doses, First dose on 10/02/24 at 1200, Last dose on Fri10/03/24 at 1200, Antimicrobial Indications: Pneumonia (CAP), CAP duration of therapy: 3 days, Use 20mm (Blue) [id number] Adapter Preparation instructions: Attach medication vial to one 20mm (Blue) [id number] adapter. James fluid bag with adapter, mix, and administer per order. 1145 (New Bag - Provider: Mar Gonzalez RN)1253 (Stopped - Provider: Mar Gonzalez RN) cefTRIAXone (ROCEPHIN) 1,000 mg in sterile water 10 mL IV syringe (CANCELED) 1,000 mg, IntraVENous, EVERY 24 HOURS, First dose on 10/02/24 at 1200, For 4 days, Administer as slow IV Push over 5 mins Reconstitute 1 g vials with 9.6 mL of designated diluent to produce a 100 mg/mL solution. 1127 (Given - Provider: Mar Gonzalez RN) 1221 (Given - Provider: Jessy Wayne, ROCIO) ciprofloxacin (CIPRO) tablet 250 mg (CANCELED) 250 mg, Oral, EVERY 12 HOURS SCHEDULED (2 times per day), 10 doses, First dose on Tu10/05/24 at 1045, Last dose on 10/09/24 at 2100, Antimicrobial Indications: Urinary Tract Infection, UTI duration of therapy: 5 days, Do not take with dairy products or calcium-fortified juices. Tube feeding (TF) interaction, obtain physician order to manage. Recommend holding TF for 1 hr before and 1 hr after dose. Due to decreased absorption do not give by J tube. 1059 (Given - Provider: Jessy Wayne RN) clopidogrel (PLAVIX) tablet 75 mg 75 mg, Oral, DAILY, First dose on Fri10/02/24 at 1130, Until Discontinued 0754 (Given - Provider: Mar Gonzalez RN) 0839 (Given - Provider: Jessy Wayne RN) 0835 (Given - Provider: Coco Mirza RN) ferrous sulfate (IRON 325) tablet 325 mg (CANCELED) 325 mg, Oral, 2 TIMES DAILY WITH MEALS, First dose on Fri10/02/24 at 1130, Until Discontinued 075 (Given - Provider: Mar Gonzalez RN)1716 (Given - Provider: Mar Gonzalez RN) 0839 (Given - Provider: Jessy Wayne RN)1639 (Given - Provider: Jessy Wayne RN) 0836 (Given - Provider: Coco Mirza RN) ferrous sulfate (IRON 325) tablet 325 mg 325 mg, Oral, DAILY WITH BREAKFAST, First dose (after last modification) on Fri10/06/24 at 0800, Until Discontinued furosemide (LASIX) tablet 40 mg 40 mg, Oral, DAILY, First dose on Fri10/03/24 at 0900, Until Discontinued 075 (Given - Provider: Mar Gonzalez RN) 0839 (Given - Provider: Jessy Wayne RN) 0836 (Given - Provider: Coco Mirza RN) iron sucrose (VENOFER) injection 200 mg (COMPLETED) 200 mg, IntraVENous, ONCE, On Fri10/04/24 at 0900, For 1 dose, May administer doses less than or equal to 200 mg undiluted by slow IV injection over 2 to 5 minutes. When administering to hemodialysis patients, give within the first hour of the session. Observe for signs and symptoms of hypersensitivity and/or anaphylactic-type reactions per institutional standard during and for at least 30 minutes following the end of administration and until clinically stable. 1111 (Given - Provider: Jessy Wayne RN) methIMAzole (TAPAZOLE) tablet 5 mg 5 mg, Oral, 2 TIMES DAILY, First dose on Fri10/02/24 at 1130, Until Discontinued 075 (Given - Provider: Mar Gonzalez RN)2039 (Given - Provider: Gi Berrios RN) 0841 (Given - Provider: Jessy Wayne RN)194 (Given - Provider: Milton Kaiser RN) 0843 (Given - Provider: Coco Mirza RN)2099 (Due) metoprolol succinate (TOPROL XL) extended release tablet 25 mg 25 mg, Oral, DAILY, First dose on Fri10/03/24 at 0900, Until Discontinued, Do not crush or chew. 0754 (Given - Provider: Mar Gonzalez RN) 0839 (Given - Provider: Jessy Wayne RN) 0836 (Given - Provider: Coco Mirza RN) QUEtiapine (SEROQUEL) tablet 25 mg 25 mg, Oral, NIGHTLY, First dose on 10/02/24 at 2100, Until Discontinued 2038 (Given - Provider: Gi Berrios RN) 1939 (Given - Provider: Milton Kaiser RN) 2099 (Due) rivastigmine (EXELON) 4.6 MG/24HR 1 patch 1 patch, TransDERmal, Administer over 24 Hours, DAILY, First dose on 10/04/24 at 1615 1639 (Patch Applied - Provider: Jessy Wayne RN) 0843 (Patch Removed - Provider: Coco Mirza RN)0844 (Patch Applied - Provider: Coco Mirza RN) sodium chloride flush 0.9 % injection 5-40 mL 5-40 mL, IntraVENous, EVERY 12 HOURS SCHEDULED (2 times per day), First dose on 10/02/24 at 1115, Until Discontinued, For Line Patency: Peripheral IV = 5 mL; Midline or Central Line = 10 mL/lumen. If following IV push medication, administer flush at same rate as the IV push. Flush volume is determined by type of infusion therapy being given. For non-viscous solutions use: Peripheral IV = 5 mL Midline or Central Line = 10 mL/lumen For viscous solutions (i.e. blood components, parenteral nutrition, contrast media, or after obtaining blood sample) use: Peripheral IV = 10 mL Midline or Central Line = 20 mL/lumen 0754 (Given - Provider: Mar Gonzalez RN)2038 (Given - Provider: Gi Berrios RN) 0841 (Given - Provider: Jessy Wayne RN)1940 (Given - Provider: Milton Kaiser RN) 0843 (Given - Provider: Coco Mirza RN)2100 (Due) warfarin (COUMADIN) tablet 2 mg 2 mg, Oral, ONCE Warfarin, 1 dose, On Fri10/05/24 at 1800, Indication of Use: A Fib/A Flutter, What is the patient's goal INR? 2.0 - 3.0, Review INR prior to administration. Hazardous med- See facility policy for handling/disposal 1800 (Due) warfarin (COUMADIN) tablet 4 mg (COMPLETED) 4 mg, Oral, ONCE Warfarin, 1 dose, On Fri10/03/24 at 1800, Indication of Use: A Fib/A Flutter, What is the patient's goal INR? 2.0 - 3.0, Review INR prior to administration. Hazardous med- See facility policy for handling/disposal 1716 (Given - Provider: Mar Gonzalez RN) warfarin (COUMADIN) tablet 4 mg (COMPLETED) 4 mg, Oral, ONCE Warfarin, 1 dose, On Fri10/04/24 at 1800, Indication of Use: A Fib/A Flutter, What is the patient's goal INR? 2.0 - 3.0, Review INR prior to administration. Hazardous med- See facility policy for handling/disposal 180 (Given - Provider: Jessy Wayne RN) warfarin placeholder: dosing by pharmacy Please contact the pharmacy if a dose is not entered by 1600. Review INR prior to warfarin administration. PRN Medication Order 10/03/2024 10/04/2024 10/05/2024 0.9 % sodium chloride infusion IntraVENous, at 5-250 mL/hr, PRN, if patient receiving piggyback infusions and maintenance fluids are not ordered, Starting on 10/02/24 at 1050, For piggyback infusion, administer at same rate as piggyback for a total of 25 mL. Enter 25 mL into dose field and piggyback rate into rate field of order. If piggyback is infusing at a rate less than 100 mL/hr, enter 25 mL into dose field and 100 mL/hr into rate field of order. acetaminophen (TYLENOL) suppository 650 mg(Linked Group 1) 650 mg, Rectal, EVERY 6 HOURS PRN, Starting on 10/02/24 at 1050, Until Discontinued, Pain Mild (1-3), allowed for higher pain score per patient request, Fever, For temp greater than 100.4 F (38 C), Administer if oral route cannot be used. acetaminophen (TYLENOL) tablet 650 mg(Linked Group 1) 650 mg, Oral, EVERY 6 HOURS PRN, Starting on 10/02/24 at 1050, Until Discontinued, Pain Mild (1-3), allowed for higher pain score per patient request, Fever, For temp greater than 100.4 F (38 C), Maximum dose of acetaminophen is 4000 mg from all sources in 24 hours. albuterol (PROVENTIL) (2.5 MG/3ML) 0.083% nebulizer solution 2.5 mg 2.5 mg, Nebulization, EVERY 6 HOURS PRN, Starting on 10/02/24 at 1102, Until Discontinued, Wheezing, Initiate RT Bronchodilator Protocol: Yes - Inpatient Protocol magnesium sulfate 2000 mg in water 50 mL IVPB 2,000 mg, IntraVENous, at 25 mL/hr, Administer over 2 Hours, PRN, Other, Magnesium Replacement, Starting on 10/02/24 at 1050, Mag Lab Replacement Action 1.4-1.6 mg/dL 2,000 mg Total Dose Given as 1,000 mg IVPB x 2 doses or 2,000 mg IVPB x 1 dose 1.0-1.3 mg/dL 4,000 mg Total Dose Given as 1,000 mg IVPB x 4 doses or 2,000 mg IVPB x 2 doses Less than 1.0 mg/dL CALL PHYSICIAN and give 4,000 mg Total Dose Given as 1,000 mg IVPB x 4 doses or 2,000 mg IVPB x 2 doses Infuse at 1,000 mg/hr Repeat Mag level 1 hour after final administration Protocol not for use in Patients with CrCl less than 30ml/min melatonin tablet 3 mg 3 mg, Oral, NIGHTLY PRN, Starting on 10/04/24 at 1903, Until Discontinued, Sleep 1940 (Given - Provider: Milton Kaiser, ROCIO) nitroGLYCERIN (NITROSTAT) SL tablet 0.4 mg 0.4 mg, SubLINGual, EVERY 5 MIN PRN, Starting on 10/02/24 at 1103, Until Discontinued, Chest pain, Place 1 tablet under tongue upon chest pain, wait 5 minutes and may repeat up to 3 doses in 15 minutes. Do not crush or break. ondansetron (ZOFRAN) injection 4 mg(Linked Group 2) 4 mg, IntraVENous, EVERY 6 HOURS PRN, Starting on 10/02/24 at 1050, Until Discontinued, Nausea, Vomiting, Administer if oral route cannot be used. ondansetron (ZOFRAN-ODT) disintegrating tablet 4 mg(Linked Group 2) 4 mg, Oral, EVERY 8 HOURS PRN, Starting on 10/02/24 at 1050, Until Discontinued, Nausea, Vomiting polyethylene glycol (GLYCOLAX) packet 17 g 17 g, Oral, DAILY PRN, Starting on 10/02/24 at 1050, Until Discontinued, Constipation, First line therapy for constipation potassium bicarb-citric acid (EFFER-K) effervescent tablet 40 mEq(Linked Group 3) 40 mEq, Oral, PRN, Starting on 10/02/24 at 1050, Until Discontinued, Per Potassium Replacement Protocol, Administer as alternative if patient unable to tolerate oral tablet. K Lab Replacement Action 3.1 to 3.5 40 mEq ORAL x 1 Under 3.1 Refer to IV replacement protocol Recheck K level in AM. Protocol not for use in patients with CrCl less than 30 mL/min. Do not chew or crush. Dissolve flavored tablets completely in 3 to 4 ounces of cold water; unflavored tablets may be dissolved in 3 to 4 ounces of cold juice. Patient to sip slowly over a 5 to 10 minute period. May further dilute if GI adverse effects occur. 0900 (See Alternative - Provider: Mar Gonzalez RN) 0836 (Given - Provider: Coco Mirza RN) potassium chloride (KLOR-CON M) extended release tablet 40 mEq(Linked Group 3) 40 mEq, Oral, PRN, Starting on 10/02/24 at 1050, Until Discontinued, Potassium Replacement, May give alternative linked oral order (ordered as effervescent, packet, or liquid solution) if patient unable to tolerate tablet. K Lab Replacement Action 3.1 to 3.5 40 mEq ORAL x 1 Under 3.1 Refer to IV replacement protocol Recheck K level in AM. Protocol not for use in patients with CrCl less than 30 mL/min. Do not crush, chew, or suck on tablet. Tablet may also be broken in half and each half swallowed separately. 0900 (Given - Provider: Mar Gonzalez RN) 0836 (See Alternative - Provider: Coco Mirza RN) potassium chloride 10 mEq/100 mL IVPB (Peripheral Line)(Linked Group 3) 10 mEq, IntraVENous, PRN, Starting on 10/02/24 at 1050, Until Discontinued, at 100 mL/hr, Potassium Replacement, K Lab Replacement Action 2.7 to 3.0 10 mEq IVPB x 6 doses (60 mEq Total) Under 2.7 CALL PROVIDER and administer 10 mEq IVPB x 6 doses (60 mEq Total) Infuse at 10 mEq/hr. Repeat Potassium lab 1 hour after final administration. Protocol not for use in patients with CrCl less than 30 mL/min. 0900 (See Alternative - Provider: Mar Gonzalez RN) 0836 (See Alternative - Provider: Coco Mirza RN) sodium chloride flush 0.9 % injection 5-40 mL 5-40 mL, IntraVENous, PRN, Starting on 10/02/24 at 1050, Until Discontinued, Line Care, After every IV line use, For Line Patency: Peripheral IV = 5 mL; Midline or Central Line = 10 mL/lumen. If following IV push medication, administer flush at same rate as the IV push. Flush volume is determined by type of infusion therapy being given. For non-viscous solutions use: Peripheral IV = 5 mL Midline or Central Line = 10 mL/lumen For viscous solutions (i.e. blood components, parenteral nutrition, contrast media, or after obtaining blood sample) use: Peripheral IV = 10 mL Midline or Central Line = 20 mL/lumen 1112 (Given - Provider: Jessy Wayne RN) Linked Groups Order Group 1: acetaminophen (TYLENOL) tablet 650 mgJump to med 650 mg, Oral, EVERY 6 HOURS PRN, Starting on 10/02/24 at 1050, Until Discontinued, Pain Mild (1-3), allowed for higher pain score per patient request, Fever, For temp greater than 100.4 F (38 C), Maximum dose of acetaminophen is 4000 mg from all sources in 24 hours. Or acetaminophen (TYLENOL) suppository 650 mgJump to med 650 mg, Rectal, EVERY 6 HOURS PRN, Starting on Sat 5 at 1050, Until Discontinued, Pain Mild (1-3), allowed for higher pain score per patient request, Fever, For temp greater than 100.4 F (38 C), Administer if oral route cannot be used. Group 2: ondansetron (ZOFRAN-ODT) disintegrating tablet 4 mgJump to med 4 mg, Oral, EVERY 8 HOURS PRN, Starting on Sat 5 at 1050, Until Discontinued, Nausea, Vomiting Or ondansetron (ZOFRAN) injection 4 mgJump to med 4 mg, IntraVENous, EVERY 6 HOURS PRN, Starting on Sat 525 at 1050, Until Discontinued, Nausea, Vomiting, Administer if oral route cannot be used. Group 3: potassium chloride (KLOR-CON M) extended release tablet 40 mEqJump to med 40 mEq, Oral, PRN, Starting on Sat 5 at 1050, Until Discontinued, Potassium Replacement, May give alternative linked oral order (ordered as effervescent, packet, or liquid solution) if patient unable to tolerate tablet. K Lab Replacement Action 3.1 to 3.5 40 mEq ORAL x 1 Under 3.1 Refer to IV replacement protocol Recheck K level in AM. Protocol not for use in patients with CrCl less than 30 mL/min. Do not crush, chew, or suck on tablet. Tablet may also be broken in half and each half swallowed separately. Or potassium bicarb-citric acid (EFFER-K) effervescent tablet 40 mEqJump to med 40 mEq, Oral, PRN, Starting on Sat 5 at 1050, Until Discontinued, Per Potassium Replacement Protocol, Administer as alternative if patient unable to tolerate oral tablet. K Lab Replacement Action 3.1 to 3.5 40 mEq ORAL x 1 Under 3.1 Refer to IV replacement protocol Recheck K level in AM. Protocol not for use in patients with CrCl less than 30 mL/min. Do not chew or crush. Dissolve flavored tablets completely in 3 to 4 ounces of cold water; unflavored tablets may be dissolved in 3 to 4 ounces of cold juice. Patient to sip slowly over a 5 to 10 minute period. May further dilute if GI adverse effects occur. Or potassium chloride 10 mEq/100 mL IVPB (Peripheral Line)Jump to med 10 mEq, IntraVENous, PRN, Starting on 10/02/24 at 1050, Until Discontinued, at 100 mL/hr, Potassium Replacement, K Lab Replacement Action 2.7 to 3.0 10 mEq IVPB x 6 doses (60 mEq Total) Under 2.7 CALL PROVIDER and administer 10 mEq IVPB x 6 doses (60 mEq Total) Infuse at 10 mEq/hr. Repeat Potassium lab 1 hour after final administration. Protocol not for use in patients with CrCl less than 30 mL/min. FOR RECORDS PERTAINING TO PATIENTS WHO ARE [...] BE BASED ON THE PRIMARY CLINICAL RECORDS. [employer] provides no warranty or guarantee of the accuracy or completeness of information in this document.
[2025-02-02 13:08] LABS: Hemoglobin 10.9 g/dL (14.0-18.0)
[2025-02-02] MEDS: ALBUTEROL SULFATE 2.5 MG/3 ML VIAL NEB IH (13:41)
== END 2025-02-02 12:49 | disposition home or self-care (01) ==
LOC: CARD 12:50
PROVIDERS: PCP Family Medicine; Visit Provider Internal Medicine Cardiovascular Disease
DX: Z79.899 Other long term (current) drug therapy (principal); I48.0 Paroxysmal atrial fibrillation
CPT/HCPCS: 36415; 85018; 94060; 94726

== ENCOUNTER 2025-02-23 01:44 | Outpatient (RCR) | payer MEDICARE, OTHER, SELFPAY | END 2025-03-25 23:59 | disposition home or self-care (01) | LOC: MM 01:44 | PROVIDERS: PCP Family Medicine; Visit Provider Internal Medicine | DX: Z51.81 Encounter for therapeutic drug level monitoring (principal); Z79.01 Long term (current) use of anticoagulants; I48.0 Paroxysmal atrial fibrillation | CPT/HCPCS: 85610; G0463 ==

== ENCOUNTER 2025-02-28 11:23 | Outpatient (OUT) | payer MEDICARE, OTHER, SELFPAY ==
--- OUTSIDE RECORDS SUMMARY | 2025-02-28 11:31 | XMS_ITS | Encounter Summary ---
Author Organization [facility] Address [address] [place] [address] Care Team Providers Care Manager Finance Name Role Phone Stanley Toledo MD Unavailable [phone] Stanley Toledo MD Primary Care Provider + [phone] Dora Santiago STOCK BUYER Unavailable Christina Goddard STOCK BUYER Unavailable Unavailable Joi Zhang STOCK BUYER Unavailable Encounter Details Date Type Department Care Team (Late Contact Info) Description 06/11/2023 Abstract [facility] [address] [place] [address] Stanley Toledo MD [address] [address] (Fax) Social History Tobacco Use Types Packs/Day [...] Visit [facility] Medicine [address] [address] Stanley Toledo MD [address] [address] (Fax) documented as of this encounter Visit Diagnoses Not on filedocumented in this encounter Additional Health Concerns Assessment Noted Time PHQ-9 Depression Total Score: 3 05/12/20 23 1:00 PM EST documented as of this encounter Care Teams Manager Finance Relationship Specialty Start Date End Date Stanley Toledo MD [address] [place] [address] (Fax) PCP - ACO Reach 10/17/22 Stanley Toledo MD [address] [place] [address] PCP - General Family Medicine 11/20/22 Dora Santiago LPN [address] [place] [address] Licensed Practical Nurse Family Medicine 12/22/23 Christina Goddard LPN Licensed Practical Nurse Family Medicine 12/25/23 Joi Zhang LPN [address] [place] [address] 08/26/24 documented as of this encounter
--- OUTSIDE RECORDS SUMMARY | 2025-02-28 11:31 | XMS_ITS | Encounter Summary ---
Author Organization [facility] Address [address] [place] [address] Care Team Providers Care Policeman Name Role Phone Stanley Toledo MD Unavailable [phone] Stanley Toledo MD Primary Care Provider + [phone] Joi Zhang LPN Unavailable Encounter Details Date Type Department Care Team (Late st Contact Info) Description 02/09/2025 Abstract [facility] Family Medicine 112 [facility] 100 [place] [address] Stanley Toledo MD 112 [facility] 100 [place] [address] Social History Tobacco Use Types Packs/Day Years Used Date Smoking Tobacco: Former Cigarettes 0.5 61.2 S tarted: 12/31/1963 Smokeless Tobacco: Never Alcohol Use Standard Drinks/Week Comments Never 0 (1 standard drink = 0.6 oz pur e alcohol) B1300 Health Literacy Answer Date Recor ded How often do you need to hav e someone help you when you read instructions, pamphlets, or other written material from your doctor or pharmacy? Always 12/30/2024 Humiliation, Afraid, Rape, and Kick questionnair e [...] often do you attend chur ch or catholic services? Never 12/31/2023 Do you belong to any clubs o r organizations such as adventism groups, unions, fraternal or athletic groups, or [...] Recorded Patient Health Questionnaire-2 Score 0 05/13/2024 [facility] - Occupational Stress Questionnaire Answer Date Recorded Do you feel stress - tense, restless, nervous, or anxious, or unable to sleep at night because your mind is troubled all the time - these days? Only a little 12/30/2024 Exercise Vital Sign Answer Date Recorde d On average, how many days pe r week do you engage in moderate to strenuous exercise (like a brisk walk)? 5 days 12/30/2024 On average, how many minutes do you engage in exercise at this level? 30 min 12/30/2024 Hunger Vital Sign Answer Date Recorded Within [...] were you homeless or living in a correction (including now)? No 12/31/2023 Sex and Gender [...] Visit [facility] 112 [facility] 100 [place] [address] Stanley Toledo MD 112 [facility] 100 [place] [address] (Fax) documented as of this encounter Visit Diagnoses Not on filedocumented in this encounter Additional Health Concerns Assessment Noted Time PHQ-9 Depression Total Score: 3 05/13/20 24 2:00 PM EST A fall risk assessment has been complete d for the patient 12/31/2023 8:54 AM EDT documented as of this encounter Care Teams Policeman Relationship Specialty Start Date End Date Stanley Toledo MD 112 [facility] 100 [place] [address] PCP - ACO Reach 10/17/22 Stanley oTledo MD [address] [place] [address] PCP - General Family Medicine 11/20/22 Joi Zhang LPN [address] [place] [address] 08/26/24 documented as of this encounter
--- OUTSIDE RECORDS SUMMARY | 2025-02-28 11:31 | XMS_ITS | Encounter Summary ---
Author Organization [facility] Address [address] [place] [address] Care Team Providers Care Bank Examiner Name Role Phone Stanley Toledo MD Unavailable [phone] Stanley Toledo MD Primary Care Provider + [phone] Dora Santiago WATER PLUMBER Unavailable Christina Goddard WATER PLUMBER Unavailable Unavailable Joi Zhang WATER PLUMBER Unavailable Encounter Details Date Type Department Care Team (Late Contact Info) Description 05/13/2023 Abstract [facility] Family Medicine [address] [place] [address] Audrey Topete RN Social History Tobacco Use [...] Visit [facility] Family Medicine 112 [facility] 100 [place] [address] Stanley Toledo MD 112 [facility] 100 [place] [address] (Fax) documented as of this encounter Visit Diagnoses Not on filedocumented in this encounter Additional Health Concerns Assessment Noted Time PHQ-9 Depression Total Score: 3 05/12/20 23 1:00 PM EST documented as of this encounter Care Teams Bank Examiner Relationship Specialty Start Date End Date Stanley Toledo MD [address] [place] [address] PCP - ACO Reach 10/17/22 Stanley Toledo MD [address] [place] [address] PCP - General Family Medicine 11/20/22 Dora Santiago LPN [address] [place] [address] Licensed Practical Nurse Family Medicine 12/22/23 Christina Goddard LPN Licensed Practical Nurse Family Medicine 12/25/23 Joi Zhang LPN [address] [place] [address] 08/26/24 documented as of this encounter
--- OUTSIDE RECORDS SUMMARY | 2025-02-28 11:31 | XMS_ITS | Encounter Summary ---
Author Organization [facility] Address [address] [place] [address] Phone Care Team Providers Care Exercise Physiologist Name Role Phone Stanley Toledo MD Primary Care Provider Ruby Vickers MD Unavailable Encounter Details Date Type Department Care Team (Late st Contact Info) Description 08/26/2024 Scanned Document [facility] [address] [place] [address] Scanning, Generic Provider Social History [...] Office Visit [facility] 7[address] [facility] 250 [place] [address] Teo Stokes MD 703 [facility] 2, [address] [place] [address] documented as of this encounter [...] documented as of this encounter Care Teams Exercise Physiologist Relationship Specialty Start Date End Date Stanley Toledo MD [address] [place] [address] PCP - General 05/17/22 Ruby Vickers MD [address] [facility] Medical Office Bldg, [address] [place] [address] [employer] Hand Electrophysiology 10/04/24 documented as of this encounter
--- OUTSIDE RECORDS SUMMARY | 2025-02-28 11:31 | XMS_ITS | Encounter Summary ---
Author Organization [facility] Address [address] [place] [address] Phone Care Team Providers Care Physical Therapist Aide Name Role Phone Stanley Toledo MD Primary Care Provider Ruby Vickers MD Unavailable Encounter Details Date Type Department Care Team (Late st Contact Info) Description 08/23/2024 Scanned Document [facility] [address] [place] [id number] Scanning, Generic Provider Social History Tobacco Use [...] EST Office Visit [facility] [address] [facility] [address] [place] [address] Teo Stokes MD 703 [facility] 2, [address] [place] [address] documented as of this encounter Visit Diagnoses Not on filedocumented in this encounter Additional Health Concerns Assessment Noted Time A fall risk assessment has been complete d for the patient 02/10/2024 9:14 AM EDT documented as of this encounter Care Teams Physical Therapist Aide Relationship Specialty Start Date End Date Stanley Toledo MD [address] [place] [address] PCP - General 05/17/22 Ruby Vickers MD [address] [facility] Medical Office Bldg, [address] [place] [address] Pathology Transcriptionist Electrophysiology 10/04/24 documented as of this encounter
--- OUTSIDE RECORDS SUMMARY | 2025-02-28 11:31 | XMS_ITS | Encounter Summary ---
Author Organization [facility] Address [address] [place] [address] Care Team Providers Care Um Specialist Name Role Phone Stanley Toledo MD Unavailable [phone] Stanley Toledo MD Primary Care Provider + [phone] Joi Zhang LPN Unavailable Encounter Details Date Type Department Care Team (Late st Contact Info) Description 01/13/2025 Abstract [facility] Family Medicine 112 [facility] 100 [place] [address] Stanley Toledo MD 112 [facility] 100 [place] [address] (Fax) Social History Tobacco Use Types Packs/Day [...] any clubs o r organizations such as faith groups, unions, fraternal or athletic groups, or [...] Recorded Patient Health Questionnaire-2 Score 0 05/13/2024 [facility] - [...] time in the past 12 m [facility], were you homeless or living [...] Medicine 112 [facility] 100 [place] [address] Stanley Toledo MD 112 [facility] 100 [place] [address] (Fax) documented as of this encounter Visit Diagnoses Not on filedocumented in this encounter Additional Health Concerns Assessment Noted Time PHQ-9 Depression Total Score: 3 05/13/20 24 2:00 PM EST A fall risk assessment has been complete d for the patient 12/31/2023 8:54 AM EDT documented as of this encounter Care Teams Um Specialist Relationship Specialty Start Date End Date Stanley Toledo MD 112 [facility] 100 [place] [address] PCP - ACO Reach 10/17/22 Stanley Toledo MD [address] [place] [address] PCP - General Family Medicine 11/20/22 Joi Zhang LPN [address] [place] [address] 08/26/24 documented as of this encounter
--- OUTSIDE RECORDS SUMMARY | 2025-02-28 11:31 | XMS_ITS | Encounter Summary ---
Author Organization [facility] Address [address] [place] [address] Phone Care Team Providers Care Abrasive Grader Helper Name Role Phone Stanley Toledo MD Primary Care Provider Ruby Vickers MD Unavailable Encounter Details Date Type Department Care Team (Late st Contact Info) Description 08/18/2024 Scanned Document [facility] [address] Virtual [place] [address] Scanning, Generic Provider Social History [...] 11:00 AM EST Office Visit [facility] 703 [facility] 250 [place] [address] Teo Stokes MD 7[address] [facility] 2, [address] [place] [address] documented as of this encounter [...] documented as of this encounter Care Teams Abrasive Grader Helper Relationship Specialty Start Date End Date Stanley Toledo MD [address] [place] [address] PCP - General 05/17/22 Ruby Vickers MD [address] [facility] Medical Office Bldg, [address] [place] [address] [employer] Console Operator Track Electrophysiology 10/04/24 documented as of this encounter
--- OUTSIDE RECORDS SUMMARY | 2025-02-28 11:31 | XMS_ITS | Encounter Summary ---
Author Organization [facility] Address [address] [place] [address] Care Team Providers Care Foreign Exchange Student Coordinator Name Role Phone Stanley Toledo MD Unavailable [phone] Stanley Toledo MD Primary Care Provider + [phone] Dora Santiago CORN GROWER Unavailable Christina Goddard CORN GROWER Unavailable Unavailable Joi Zhang CORN GROWER Unavailable Encounter Details Date Type Department Care Team (Late Contact Info) Description 07/01/2023 Abstract [facility] [address] [place] [address] Stanley Toledo MD [address] [address] (Fax) Social History Tobacco Use Types Packs/Day [...] [facility] Family Medicine [address] [address] Stanley Toledo MD [address] [address] (Fax) documented as of this encounter Visit Diagnoses Not on filedocumented in this encounter Additional Health Concerns Assessment Noted Time PHQ-9 Depression Total Score: 3 05/12/20 23 1:00 PM EST documented as of this encounter Care Teams Foreign Exchange Student Coordinator Relationship Specialty Start Date End Date Stanley Toledo MD [address] [place] [address] (Fax) PCP - ACO Reach 10/17/22 Stanley Toledo MD [address] [place] [address] PCP - General Family Medicine 11/20/22 Dora Santiago LPN [address] [place] [address] Licensed Practical Nurse Family Medicine 12/22/23 Christina Goddard LPN Licensed Practical Nurse Family Medicine 12/25/23 Joi Zhang LPN [address] [place] [address] 08/26/24 documented as of this encounter
--- OUTSIDE RECORDS SUMMARY | 2025-02-28 11:31 | XMS_ITS | Encounter Summary ---
Author Organization [facility] Address [address] [place] [address] Phone Care Team Providers Care Interior Design Program Chair Name Role Phone Stanley Toledo MD Primary Care Provider Ruby Vickers MD Unavailable Encounter Details Date Type Department Care Team (Late st Contact Info) Description 09/16/2024 Scanned Document [facility] [address] [place] [address] Scanning, Generic Provider Social History [...] 11:00 AM EST Office Visit [facility] 703 [facility] [address] [place] [address] Teo Stokes MD 703 [facility] 2, [address] [place] [address] documented as of this encounter [...] documented as of this encounter Care Teams Interior Design Program Chair Relationship Specialty Start Date End Date Stanley Toledo MD [address] [place] [address] PCP - General 05/17/22 Ruby Vickers MD 125 [address] [facility] Medical Office Bldg, [address] [place] [address] Heat Treat Technician Electrophysiology 10/04/24 documented as of this encounter
--- OUTSIDE RECORDS SUMMARY | 2025-02-28 11:31 | XMS_ITS | Clinical Summary ---
Author Organization [facility] Address [address] [place] [address] Phone Care Team Providers Care Reel System Operator Name Role Phone Stanley Toledo MD Primary Care Provider Ruby Vickers MD Unavailable Allergies No known active allergies Medications albuterol 90 mcg/actuation inhaler Inhale 2 puffs every 4 hours if needed. 12/18/19 23 Active ferrous sulfate, 325 mg ferrous sulfate, tablet Take 1 tablet (325 mg) by mouth once daily with breakfast. Active multivitamin (Multiple Vitamins) tablet Take 1 tablet by mouth once daily. Active nitroglycerin (Nitrostat) 0.[address] 1 tablet (0.4 mg) under the tongue every 5 minutes if needed for chest pain. Active furosemide (Lasix) 40 mg tablet Take 1 tablet (40 mg) by mouth once daily. 02/04/20 24 Active warfarin (Coumadin) 5 mg tabletIndication s:Paroxysmal atrial fibrillation (Multi) Take one tablet daily in the evening. Follow with [facility]. Patient will take coumadin and eliquis together for 3 days only 14 tablet 03/05/20 24 025 Active metoprolol succinate XL (Toprol-XL) 25 mg 24 hr tabletIndication s:Cardiomyopathy , ischemic Take 1 tablet (25 mg) by mouth once daily. Do not crush or chew. 90 tablet 3 05/21/20 24 025 Active methIMAzole (Tapazole) 5 mg tabletIndication s:High risk medication use,Hyperthyroid ism Take 1 tablet (5 mg) by mouth 2 times a day. 180 tablet 3 07/30/19 25 026 Active QUEtiapine (SEROquel) 25 mg tablet Take 1 tablet (25 mg) by mouth once daily at bedtime. 10/06/19 25 Active rivastigmine (Exelon) 4.6 mg/[address] 1 patch on the skin once daily. 10/07/19 25 Active enoxaparin (Lovenox) 100 mg/mL syringeIndicatio ns:Cardiomyopath [...] the morning of the procedure. 3 each 10/09/19 25 Active amiodarone (Pacerone) 200 mg tabletIndication s:Paroxysmal atrial fibrillation (Multi) TAKE 1 TABLET BY MOUTH EVERY DAY 90 tablet 1 11/02/19 25 Active clopidogrel (Plavix) 75 mg tabletIndication s:Coronary artery disease involving [place] coronary artery of [place] heart without angina pectoris Take 1 tablet (75 mg) by mouth once daily. 90 tablet 01/04/20 25 Active atorvastatin (Lipitor) 80 mg tabletIndication s:Hyperthyroidis m Take 1 tablet (80 mg) by mouth once daily at bedtime. 90 tablet 3 02/01/20 25 026 Active Klor-Con M20 20 mEq ER tabletIndication s:Hypokalemia TAKE 1 TABLET BY MOUTH ONCE DAILY. DO NOT CRUSH OR CHEW. 90 tablet 3 01/29/20 25 Active atorvastatin (Lipitor) 80 mg tablet Take 1 tablet (80 mg) by mouth once daily. 025 Discontinued Active Problems Problem Noted Date Diagnosed Date Body mass index (BMI) 25.0-25.9, adult Encounter for medication review and counseling 0 10/08/2024 Encounter to discuss test results 10/08/2024 Encounter to discuss treatment options Encounter to establish care with new provider Ventricular ectopy/arrhythmi a, pre-operative cardiovascular exam 10/08/2024 S/P PTCA (percutaneous transluminal coronary ang ioplasty) 02/10/2024 Coronary artery disease invo lving [place] coronary artery of [place] heart without angina pectoris 02/10/2024 Paroxysmal atrial fibrillation (Multi) 4 Former smoker 02/10/2024 High risk medication use [...] Encounters Date Type Department Care Team Description 02/02/2025 Scanned Document [facility] [address] [place] [address] Scanning, Generic Provider 01/28/2025 Refill [facility] [address] [place] [address] Magdy Stokes MD Hypokalemia 01/28/2025 Refill [facility] [address] [place] [address] Constantin Pruett, Hyperthyroidism (Primary Dx) 01/02/2025 Refill [place] [address] [place] [address] Magdy Stokes MD Coronary artery disease involving [place] coronary artery of [place] heart without angina pectoris from Last 3 Months Immunizations Immunization Administration [...] AM EST Office Visit [facility] [address] [address] Magdy Stokes MD 703 [facility] 2, [address] [place] [address] Health Maintenance Due Date Last Done Comments Creatinine Level 1945 Lipid Panel 1945 Medicare Annual Wellness Visit (AWV) 1945 Potassium Level 1945 Diabetes Screening 11/30/1961 CKD: Urine Protein Screening 11/30/1962 DTaP/Tdap/Td Vaccines (1 - Tdap) 11/30/1965 Zoster Vaccines (1 of 2) 11/30/1993 COVID-19 Vaccine ( season) 2025 03/19/2024, 02/16/2023, 03/29/2022, Additional history exists Influenza [...] topic Meningococcal Vaccine Aged Out No howard zulyema eligible based on patient's age to complete this topic Rotavirus Vaccines Aged Out No longer eligible based on patient's age to complete this topic Procedures Procedure Name Priority Date/Time Associated Diagnosis Comments OUTSIDE LAB SCAN 02/02/2025 TRANSTHORACIC ECHO (TTE) LIMITED Routine 08/06/2024 12:[address] elevation myocardial infarction (STEMI), unspecified artery (Multi) Cardiomyopathy, ischemic Coronary artery disease involving [place] coronary artery of [place] heart without angina pectoris S/P PTCA (percutaneous transluminal coronary angioplasty) from Last 3 Months or Most Recently Relevant to Health Maintenance Results * OUTSIDE LAB SCAN (02/02/2025) Narrative 02/02/2025 Ordered by an unspecified provider. us Generic [...] Narrative SYNGO - 08/11/2024 5:54 PM EDT [address], [address] [place] [address] TRANSTHORACIC ECHOCARDIOGRAM REPORT Patient Name: ALEX Sawyer Physician: [id number] Mally Torres MD Study Date: 08/06/2024 Ordering Provider: [id number] MAGDY STOKES MRN/PID: [id number] Fellow: Nurse: Date of /Age: 7 1945 / 78 years Utility Forester: Marlyn Castro RDCS, RT(R), RDMS, RVT Gender Assigned at M Additional Staff: : Height: 187.96 cm Admit Date: Weight: 92.53 kg Admission Status: Outpatient BSA / BMI: 2.19 m2 / 26.19 Department Location: [facility] kg/m2 [place] Blood Pressure: 98 /64 mmHg Study Type: TRANSTHORACIC ECHO (TTE) LIMITED Diagnosis/ICD: Atherosclerotic heart disease of [place] coronary artery without angina pectoris-I25.10; ST elevation (STEMI) myocardial infarction of unspecified site-I21.3 Indication: STEMI CPT Codes: Echo Limited-02468 Patient History: Smoker: Former. Pertinent History: A-Fib, [...] 0.6 m/s (0.6-0.9m/s) PV Max P.6 mmHg [id number] Mally Torres MD Electronically signed on 08/11/2024 at 5:54:03 PM Final Procedure Note Mally Torres MD - 08/11/[address], [address], [place] [address] TRANSTHORACIC ECHOCARDIOGRAM REPORT Patient Name: ALEX Sawyer Physician: [id number] RemyD Study Date: 08/06/2024 Ordering Provider: [id number] ALYSSIA STOKES MRN/PID: [id number] Fellow: Nurse: Date of /Age: 7 1945 / 78 years Utility Forester: Zeke RDCS,RT(R), RDMS, RVT Gender Assigned at M Additional Staff: : Height: 187.96 cm Admit Date: Weight: 92.53 kg Admission Status: Outpatient BSA / BMI: 2.19 m2 / 26.19 [facility] [place] Blood Pressure: 98 /64 mmHg Study Type: TRANSTHORACIC ECHO (TTE) LIMITED Diagnosis/ICD: Atherosclerotic heart disease of [place] coronary arterywithout angina pectoris-I25.10; ST elevation (STEMI) myocardial infarction of unspecified site-I21.3 Indication: STEMI CPT Codes: Echo Limited-23975 Patient History: Smoker: Former. Pertinent History: A-Fib, [...] 0.6 m/s (0.6-0.9m/s) PV Max P.6 mmHg [id number] Mally Torres MD Electronically signed on 08/11/2024 at 5:54:03 PM Final us Magdy Stokes MD CV ECHO PROCEDURES Final Res ult SYNGO from Last 3 Months or Most Recently Relevant to Health Maintenance Insurance MEDICARE PART A AND B Member Subscriber Plan / Payer (Ef fective 2010-Present) Name:Alex Anderson Member ID:[id number] Relation to Subscriber:Self Name:Alex Anderson Subscriber ID:[id number] Payer ID:Not on file Group ID:Not on file Type:Not on file Address: [address] MEDICARE SUPPLEMENT MEDICARE PART A AND B Member Subscriber Plan / Payer (Ef fective 2010-Present) Name:Alex Anderson Member ID:[id number] Relation to Subscriber:Self Name:Alex Anderson Subscriber ID:[id number] Payer ID:Not on file Group ID:Not on file Type:Not on file Address: [address] MEDICARE SUPPLEMENT Care Teams Reel System Operator Relationship Specialty Start Date End Date Stanley Toledo MD [address] [place] [address] PCP - General 05/17/22 Ruby Vickers MD [address] [facility] Office Bl, [facility] [address] [place] [address] Knitting Machine Operator Automatic Electrophysiology 10/04/24
--- OUTSIDE RECORDS SUMMARY | 2025-02-28 11:31 | XMS_ITS | Encounter Summary ---
Author Organization [facility] Address [address] [place] [address] Phone Care Team Providers Care Power Transformer Repair Supervisor Name Role Phone Stanley Toledo MD Primary Care Provider [phone] Ruby Vickers MD Unavailable Encounter Details Date Type Department Care Team (Late st Contact Info) Description 09/02/2024 Scanned Document [facility] [address] [place] [address] Scanning, Generic Provider Social History [...] 11:00 AM EST Office Visit [facility] 703 [facility] 250 [place] [address] Teo Stokes MD 703 [facility] 2, [address] [place] [address] documented as of this encounter [...] documented as of this encounter Care Teams Power Transformer Repair Supervisor Relationship Specialty Start Date End Date Stanley Toledo MD [address] [place] [address] PCP - General 05/17/22 Ruby Vickers MD 125 [address] [facility] Medical Office Bldg, [address] [place] [address] Social Service Technician Electrophysiology 10/04/24 documented as of this encounter
--- OUTSIDE RECORDS SUMMARY | 2025-02-28 11:31 | XMS_ITS | Encounter Summary ---
Author Organization [facility] Address [address] [place] [address] Care Team Providers Care Business Unit Leader Name Role Phone Stanley Toledo MD Unavailable [phone] Stanley Toledo MD Primary Care Provider [phone] Dora Santiago AUTOMOTIVE PARTS PERSON Unavailable Christina Goddard AUTOMOTIVE PARTS PERSON Unavailable Unavailable Joi Zhang AUTOMOTIVE PARTS PERSON Unavailable Encounter Details Date Type Department Care Team (Late Contact Info) Description 06/17/2023 Abstract [facility] Family Medicine [address] [place] [address] Stanley Toledo MD [address] [address] (Fax) Social History Tobacco Use Types Packs/Day [...] [facility] Family Medicine [address] [address] Stanley Toledo MD [address] [address] (Fax) documented as of this encounter Visit Diagnoses Not on filedocumented in this encounter Additional Health Concerns Assessment Noted Time PHQ-9 Depression Total Score: 3 05/12/20 23 1:00 PM EST documented as of this encounter Care Teams Business Unit Leader Relationship Specialty Start Date End Date Stanley Toledo MD [address] [place] [address] (Fax) PCP - ACO Reach 10/17/22 Stanley Toledo MD [address] [place] [address] PCP - General Family Medicine 11/20/22 Dora Santiago LPN [address] [place] [address] Licensed Practical Nurse Family Medicine 12/22/23 Christina Goddard LPN Licensed Practical Nurse Family Medicine 12/25/23 Joi Zhang LPN [address] [place] [address] 08/26/24 documented as of this encounter
--- OUTSIDE RECORDS SUMMARY | 2025-02-28 11:31 | XMS_ITS | Encounter Summary ---
Author Organization [facility] Address [address] [place] [address] Care Team Providers Care Office Machine Repair Shop Supervisor Name Role Phone Stanley Toledo MD Unavailable [phone] Stanley Toledo MD Primary Care Provider + [phone] Dora Santiago CERTIFIED WELDER Unavailable Christina Goddard CERTIFIED WELDER Unavailable Unavailable Joi Zhang CERTIFIED WELDER Unavailable Encounter Details Date Type Department Care Team (Late Contact Info) Description 05/13/2023 Abstract [facility] Family Medicine [address] [place] [address] Stanley Toledo MD [address] [address] (Fax) Social History Tobacco Use Types Packs/Day [...] Visit [facility] Family Medicine [address] [address] Stanley Toledo MD [address] [address] (Fax) documented as of this encounter Visit Diagnoses Not on filedocumented in this encounter Additional Health Concerns Assessment Noted Time PHQ-9 Depression Total Score: 3 05/12/20 23 1:00 PM EST documented as of this encounter Care Teams Office Machine Repair Shop Supervisor Relationship Specialty Start Date End Date Stanley Toledo MD [address] [place] [address] (Fax) PCP - ACO Reach 10/17/22 Stanley Toledo MD [address] [place] [address] PCP - General Family Medicine 11/20/22 Dora Santiago LPN [address] [place] [address] Licensed Practical Nurse Family Medicine 12/22/23 Christina Goddard LPN Licensed Practical Nurse Family Medicine 12/25/23 Joi Zhang LPN [address] [place] [address] 08/26/24 documented as of this encounter
--- OUTSIDE RECORDS SUMMARY | 2025-02-28 11:31 | XMS_ITS | Encounter Summary ---
Author Organization [facility] Address [address] [place] [address] Care Team Providers Care Data Mining Analyst Name Role Phone Stanley Toledo MD Unavailable [phone] Stanley Toledo MD Primary Care Provider + [phone] Dora Santiago ENGINE INSTALLER Unavailable Christina Goddard ENGINE INSTALLER Unavailable Unavailable Joi Zhang ENGINE INSTALLER Unavailable Encounter Details Date Type Department Care Team (Late Contact Info) Description 12/17/2022 Abstract [facility] 521 Family Medicine [address] [place] [address] Stanley Toledo MD [address] [address] Social History Tobacco Use Types Packs/Day Years [...] Care Team ([facility] Contact Info) Description 05/10/2025 2:00 PM EST Office Visit [facility] 100 Family Medicine [address] [address] Stanley Toledo MD 112 [facility] 100 [place] [address] documented as of this encounter Visit Diagnoses Not on filedocumented in this encounter Care Teams Data Mining Analyst Relationship Specialty Start Date End Date Stanley Toledo MD [address] [place] [address] (Fax) PCP - ACO Reach 10/17/22 Stanley Toledo MD [address] [place] [address] PCP - General Family Medicine 11/20/22 Dora Santiago LPN [address] [place] [address] Licensed Practical Nurse Family Medicine 12/22/23 Christina Goddard LPN Licensed Practical Nurse Family Medicine 12/25/23 Joi Zhang LPN [address] [place] [address] 08/26/24 documented as of this encounter
--- OUTSIDE RECORDS SUMMARY | 2025-02-28 11:31 | XMS_ITS | Encounter Summary ---
Author Organization [facility] Address [address] [place] [address] Care Team Providers Care Machine Set Up Technician Name Role Phone Stanley Toledo MD Unavailable [phone] Stanley Toledo MD Primary Care Provider + [phone] Dora Santiago COMPENSATION/BENEFITS SPECIALIST Unavailable Vicente Joi COMPENSATION/BENEFITS SPECIALIST Unavailable Encounter Details Date Type Department Care [...] often do you attend chur ch or temple services? Never 12/31/2023 Do you belong to any clubs o r organizations such as pentecostalism groups, unions, fraternal or athletic groups, or [...] Recorded Patient Health Questionnaire-2 Score 0 05/13/2024 [facility] Answer Date [...] [facility] 112 [facility] 100 [place] [address] Stanley Toledo MD 112 [facility] 100 [place] [address] documented as of this encounter Procedures Procedure Name Priority Date/Time Associated Diagnosis Comments ITP 05/25/2024 7:54 AM EST documented in this encounter Results * ITP (05/25/2024 7:54 AM EST) Anatomical Region Laterality Modality Other 05/25/2024 7:54 AM EST Narrative 05/26/2024 8:06 AM EST The [address] [address] Cardiac Rehab Report Signed Patient: ALEX GRAJEDA MR#: [id number] : 1945 Acct:[id number] Age/Sex: 78 / M ADM Date: 05/25/24 Loc: CR Attending Dr: MAGDY AL Ordering Physician: Arnol Garnica D.O. Date of Service: 05/25/24 Procedure(s): ITP Accession Number(s): [id number] cc: [facility] Test Date: 2024-05-25 Pat Name: ALEX GRAJEDA Department: Room: - Gender: Male Bridge Ironworker: : 1945 Requested By: ARNOL GARNICA Order Number: [id number] [place] MD: ARNOL GARNICA Interpretive Statements Session Date: Electronically Signed On 05-26-2024 8:06:21 EST by ARNOL GARNICA Dictated By: Arnol Garnica D.O. Signed By: 05/26/24 0805/26/24805 DD/ 075 TD/TT: Wildlife Policy Professional: Procedure Note Radiology, Radiologist, MD - 05/26/2024 [place] [address] Cardiac Rehab Report Signed Patient: ALEX GRAJEDA HMR#: [id number] : 4Acct:[id number] Age/Sex: 78 / MADM Date: 05/25/24 Loc: CR Attending Dr: MAGDY AL Ordering Physician: Arnol Garnica D.O. Date of Service: 05/25/24 Procedure(s): ITP Accession Number(s): [id number] cc: [facility] Test Date: 2024-05-25 Pat Name: ALEX GRAJEDA Department: Room: - Gender: Male Bridge Ironworker: : 1945 Requested By: ARNOL GARNICA Order Number: [id number] Silverio CASILLAS: ARNOL GARNICA Interpretive Statements Session Date: Electronically Signed On 05-26-2024 8:06:21 EST by ARNOL GARNICA Dictated By: Arnol Garnica D.O. Signed By:05/26/24 0806 05/26/24805 DD/ 0754 TD/TT: Wildlife Policy Professional: us Generic External Data Provider [facility] Final Result documented in this encounter Visit Diagnoses Not on filedocumented in this encounter Additional Health Concerns Assessment Noted Time PHQ-9 Depression Total Score: 3 05/13/20 24 2:00 PM EST A fall risk assessment has been complete d for the patient 12/31/2023 8:54 AM EDT documented as of this encounter Care Teams Machine Set Up Technician Relationship Specialty Start Date End Date Stanley Toledo MD [address] [place] [address] PCP - ACO Reach 10/17/22 Stanley Toledo MD [address] [place] [address] PCP - General Family Medicine 11/20/22 Dora Santiago LPN [address] [place] [address] Licensed Practical Nurse Family Medicine 12/22/23 Joi Zhang LPN [address] [place] [address] 08/26/24 documented as of this encounter
--- OUTSIDE RECORDS SUMMARY | 2025-02-28 11:31 | XMS_ITS | Encounter Summary ---
Author Organization [facility] Address [address] [place] [address] Phone Care Team Providers Care Historic Sites Registrar Name Role Phone Stanley Toledo MD Primary Care Provider Ruby Vickers MD Unavailable Encounter Details Date Type Department Care Team (Late st Contact Info) Description 10/07/2024 Scanned Document [facility] [address] [place] [address] Scanning, Generic Provider Social History Tobacco Use [...] PM EDT documented as of this encounter Functional Status * BP Answer Date of Assessment Author 80/58 10/08/2024 2:43 PM EDT Anne-Marie Walter MA * Pulse Answer Date of Assessment Author 73 10/08/2024 2:43 PM EDT Anne-Marie Walter MA * Communicable Disease Screening Question Answer Date of Assessment Author Do you have any of the follo wing new or worsening symptoms? None of these 10/08/2024 2:26 PM EDT Genoveva Serrano documented as of this encounter Plan of Treatment Upcoming Encounters Date Type Department Care Team (Late st Contact Info) Description 03/29/2025 11:00 AM EST Office Visit [facility] 703 [facility] [address] [place] [address] Teo Stokes MD 703 [facility], [address] [place], [place] [address] documented as of this encounter Procedures Procedure [...] documented as of this encounter Care Teams Historic Sites Registrar Relationship Specialty Start Date End Date Stanley Toledo MD [address] [place] [address] PCP - General 05/17/22 Ruby Vickers MD 125 [address] [facility] Medical Office dg, [address] [place] [address] Director Hydrogen Storage Engineering Electrophysiology 10/04/24 documented as of this encounter
--- OUTSIDE RECORDS SUMMARY | 2025-02-28 11:32 | XMS_ITS | Encounter Summary ---
Author Organization [facility] Address [address] [place] [address] Care Team Providers Care Ruby Software Developer Name Role Phone Stanley Emerson MD Unavailable [phone] Stanley Emerson MD Primary Care Provider + [phone] Dora Santiago FACILITY ENVIRONMENTAL TECHNICIAN Unavailable Christina Goddard FACILITY ENVIRONMENTAL TECHNICIAN Unavailable Unavailable Joi Zhang FACILITY ENVIRONMENTAL TECHNICIAN Unavailable Encounter Details Date Type Department [...] Visit [facility] [address] [facility] 100 [place] [address] Stanley Emerson MD 112 [facility] 100 [place] [address] documented as of this encounter Procedures Procedure Name Priority Date/Time Associated Diagnosis Comments VASC US LOWER EXTREMITY VENOUS DUPLEX RIGHT 07/31/2023 10:47 AM EST documented in this encounter Results * Vascular US lower extremity venous duplex right (07/31/2023 10:47 AM EST) Anatomical Region Laterality Modality Lower Extremities Ultrasound 07/31/2023 10:4 7 AM EST Narrative 07/31/2023 10:50 [place] [address] Ultrasound Report Signed Patient: ALEX GRAJEDA MR#: [id number] : 1945 Acct:[id number] Age/Sex: 77 / M ADM Date: 07/31/23 Loc: RAD Attending Dr: Shahriar Mosley M.D. Ordering Physician: Shahriar Mosley Date of Service: 07/31/23 Procedure(s): US venous doppler LE RT Accession Number(s): [id number] cc: Shahriar Mosley; STANLEY EMERSON [place] [id number] Patient Name: ALEX GRAJEDA MRN: [id number] date: 1945 Sex: M Assigned Patient Location: RAD Current Patient Location: RAD Accession/Order Number: [id number] Exam Date: 07/31/2023 08:40 Report Date: 07/31/2023 [...] Signed By: 07/31/23 1050 DD/ 1047 TD/TT: Java Designer: Procedure Note Radiology, Radiologist, MD - 07/31/[address] [address] Ultrasound Report Signed Patient: ALEX GRAJEDA R#: [id number] : 1945cct:[id number] Age/Sex: 77 / MADM Date: 07/31/23 Loc: RAD Attending Dr: Shahriar Mosley M.D. Ordering Physician: Shahriar Mosley Date of Service: 07/31/23 Procedure(s): US venous doppler LE RT Accession Number(s): [id number] cc: Shahriar Mosley; STANLEY EMERSON [place] [address] Patient Name: ALEX GRAJEDA MRN: [id number] date: 1945 Sex: M Assigned Patient Location: [facility] Current Patient Location: [facility] Accession/Order Number: [id number] Exam Date: 07/31/2023 08:40 Report Date: 07/31/2023 [...] M.D. Signed By:07/31/23 1050 DD/ 1047 TD/TT: Java Designer: us Generic External Data Provider IMG US PROCEDURES Final Result documented in this encounter Visit Diagnoses Not on filedocumented in this encounter Additional Health Concerns Assessment Noted Time PHQ-9 Depression Total Score: 3 05/12/20 23 1:00 PM EST documented as of this encounter Care Teams Ruby Software Developer Relationship Specialty Start Date End Date Stanley Emerson MD [address] [place] [address] PCP - ACO Reach 10/17/22 Stanley Emerson MD [address] [place] [address] PCP - General Family Medicine 11/20/22 Dora Santiago LPN [address] [place] [address] Licensed Practical Nurse Family Medicine 12/22/23 Christina Goddard LPN Licensed Practical Nurse Family Medicine 12/25/23 Joi Zhang LPN [address] [place] [address] 08/26/24 documented as of this encounter
--- OUTSIDE RECORDS SUMMARY | 2025-02-28 11:32 | XMS_ITS | Encounter Summary ---
Author Organization [facility] Address [address] [place] [address] Care Team Providers Care Finishing Department Supervisor Name Role Phone Stanley Toledo MD Unavailable [phone] Stanley Toledo MD Primary Care Provider [phone] Dora Santiago SPLASH LINE OPERATOR Unavailable Christina Goddard SPLASH LINE OPERATOR Unavailable Unavailable Joi Zhang SPLASH LINE OPERATOR Unavailable Encounter Details Date Type Department Care Team (Late Contact Info) Description 12/09/2022 Abstract [facility] Family Medicine [address] [place] [address] Stanley Toledo MD [address] [address] (Fax) Social History Tobacco Use Types Packs/Day [...] Visit [facility] 100 Family Medicine [address] [address] Stanley Toledo MD [address] [address] (Fax) documented as of this encounter Visit Diagnoses Not on filedocumented in this encounter Care Teams Finishing Department Supervisor Relationship Specialty Start Date End Date Stanley Toledo MD [address] [place] [address] PCP - ACO Reach 10/17/22 Stanley Toledo MD [address] [place] [address] PCP - General Family Medicine 11/20/22 Dora Santiago LPN [address] [place] [address] Licensed Practical Nurse Family Medicine 12/22/23 Christina Goddard LPN Licensed Practical Nurse Family Medicine 12/25/23 Joi Zhang LPN [address] [place] [address] 08/26/24 documented as of this encounter
--- OUTSIDE RECORDS SUMMARY | 2025-02-28 11:32 | XMS_ITS | Encounter Summary ---
Author Organization [facility] Address [address] [place] [address] Care Team Providers Care Harness Repairer Name Role Phone Stanley Toledo MD Unavailable [phone] Stanley Toledo MD Primary Care Provider [phone] Dora Santiago SENIOR INSTRUCTIONAL DESIGNER Unavailable Christina Goddard SENIOR INSTRUCTIONAL DESIGNER Unavailable Unavailable Joi Zhang SENIOR INSTRUCTIONAL DESIGNER Unavailable Encounter Details Date Type Department Care Team (Late Contact Info) Description 10/22/2022 Abstract [facility] 521 Family Medicine [address] [place] [address] Stanley Toledo MD [address] [address] (Fax) Social History Tobacco Use Types Packs/Day [...] Visit [facility] 100 Family Medicine [address] [address] Stanley Toledo MD [address] [address] (Fax) documented as of this encounter Visit Diagnoses Not on filedocumented in this encounter Care Teams Harness Repairer Relationship Specialty Start Date End Date Stanley Toledo MD [address] [place] [address] PCP - ACO Reach 10/17/22 Stanley Toledo MD [address] [place] [address] PCP - General Family Medicine 11/20/22 Dora Santiago LPN [address] [place] [address] Licensed Practical Nurse Family Medicine 12/22/23 Christina Goddard LPN Licensed Practical Nurse Family Medicine 12/25/23 Joi Zhang LPN [address] [place] [address] 08/26/24 documented as of this encounter
--- OUTSIDE RECORDS SUMMARY | 2025-02-28 11:32 | XMS_ITS | Encounter Summary ---
Author Organization [facility] Address [address] [place] [address] Care Team Providers Care Flooring Salesperson Name Role Phone Stanley Toledo MD Unavailable [phone] Stanley Toledo MD Primary Care Provider [phone] Dora Santaigo ARBORIST REPRESENTATIVE Unavailable Vicente Joi ARBORIST REPRESENTATIVE Unavailable Encounter Details Date Type Department [...] often do you attend chur ch or muslim services? Never 12/31/2023 Do you belong to [...] Recorded Patient Health Questionnaire-2 Score 0 12/31/2023 [facility] Answer Date Recorded [...] any time in the past [address] [facility], were you homeless or living in a [...] Visit [facility] 112 [facility] 100 [place] [address] Stanley Toledo MD 112 [facility] 100 [place] [address] documented as of this encounter Procedures Procedure Name Priority Date/Time Associated Diagnosis Comments ITP 03/31/2024 12:39 PM EST documented in this encounter Results * ITP (03/31/2024 12:39 PM EST) Anatomical Region Laterality Modality Other 03/31/2024 12:3 9 PM EST Narrative 03/31/2024 8:55 PM EST The [address] [address] Cardiac Rehab Report Signed Patient: ALEX GRAJEDA MR#: [id number] : 1945 Acct:[id number] Age/Sex: 78 / M ADM Date: 03/31/24 Loc: CR Attending Dr: MAGDY AL Ordering Physician: Arnol Garnica D.O. Date of Service: 03/31/24 Procedure(s): ITP Accession Number(s): [id number] cc: [facility] Test Date: 2024-03-31 Pat Name: ALEX GRAJEDA Department: Room: - Gender: Male Swimming Pool Salesperson: : 1945 Requested By: ARNOL GARNICA Order Number: [id number] Reading MD: ARNOL GARNICA Interpretive Statements Session Date: Electronically Signed On 03-31-2024 20:54:52 EST by ARNOL GARNICA Dictated By: Arnol Garnica D.O. Signed By: 03/31/24205403/31/242054 DD/ 123 TD/TT: Construction Executive: Procedure Note Radiology, Radiologist, MD - 03/31/2024 [place] [address] Cardiac Rehab Report Signed Patient: ALEX GRAJEDA HMR#: [id number] : 1945cct:[id number] Age/Sex: 78 / MADM Date: 03/31/24 Loc: CR Attending Dr: MAGDY AL Ordering Physician: Arnol Garnica D.O. Date of Service: 03/31/24 Procedure(s): ITP Accession Number(s): [id number] cc: [facility] Test Date: 2024-03-31 Pat Name: ALEX GRAJEDA Department: Room: - Gender: Male Swimming Pool Salesperson: : 1945 Requested By: ARNOL GARNICA Order Number: [id number] Reading : ARNOL GARNICA Interpretive Statements Session Date: Electronically Signed On 03-31-2024 20:54:52 EST by ARNOL GARNICA Dictated By: Arnol Garnica D.O. Signed By:03/31/24205403/31/242054 DD/ 123 TD/TT: Construction Executive: us Generic External Data Provider [facility] Final Result documented in this encounter Visit Diagnoses Not on filedocumented in this encounter Additional Health Concerns Assessment Noted Time PHQ-9 Depression Total Score: 3 05/12/20 23 1:00 PM EST A fall risk assessment has been complete d for the patient 12/31/2023 8:54 AM EDT documented as of this encounter Care Teams Flooring Salesperson Relationship Specialty Start Date End Date Stanley Toledo MD [address] [place] [address] PCP - ACO Reach 10/17/22 Stanley Toledo MD [address] [place] [address] PCP - General Family Medicine 11/20/22 Dora Santiago LPN [address] [place] [address] Licensed Practical Nurse Family Medicine 12/22/23 Joi Zhang LPN [address] [place] [address] 08/26/24 documented as of this encounter
--- OUTSIDE RECORDS SUMMARY | 2025-02-28 11:32 | XMS_ITS ---
Author Organization [facility] Address [address] [place] [address] Care Team Providers Care New Car Inspector Name Role Phone Stanley Toledo MD Unavailable [phone] Stanley Toledo MD Primary Care Provider + [phone] Joi Zhang LPN Unavailable Chronic Care Management (CCM) Status:Enrolled (Active) Start date:12/22/2023 Enrollment date:12/31/2023 Enrollment reason:Identified as high-risk Overview Please assess for Care Management needs. 12/31/23, 10:20 AM - Dora Santiago LPN- Patient gives verbal consent to be enrolled in CCM Program and understands there could be a bill for this service. Case Team Name Relationship Phone Joi Zhang LPN(Responsible Staff) [phone] Continued Care and Services Coordination
--- OUTSIDE RECORDS SUMMARY | 2025-02-28 11:32 | XMS_ITS | Encounter Summary ---
Author Organization [facility] Address [address] [place] [address] Care Team Providers Care Mold Dumper Name Role Phone Stanley Toledo MD Unavailable [phone] Stanley Toledo MD Primary Care Provider [phone] Dora Santiago BARK SPUDDER Unavailable Rupesh Christina BARK SPUDDER Unavailable Unavailable Joi Zhang BARK SPUDDER Unavailable Encounter Details Date Type Department Care Team ([facility] Contact Info) Description 12/17/2022 Orders Only [facility] 521 Family Medicine [address] [place] [address] Stanley Toledo MD [address] [address] Social History Tobacco Use Types Packs/Day Years [...] [facility] 100 Family Medicine [address] [address] Stanley Toledo MD 112 [facility] 100 [place] [address] documented as of this encounter Procedures Procedure [...] on filedocumented in this encounter Care Teams Mold Dumper Relationship Specialty Start Date End Date Stanley Toledo MD [address] [place] [address] (Fax) PCP - ACO Reach 10/17/22 Stanley Toledo MD [address] [place] [address] (Fax) PCP - General Family Medicine 11/20/22 Dora Santiago LPN [address] [place] [address] Licensed Practical Nurse Family Medicine 12/22/23 Christina Goddard LPN Licensed Practical Nurse Family Medicine 12/25/23 Joi Zhang LPN [address] [place] [address] 08/26/24 documented as of this encounter
--- OUTSIDE RECORDS SUMMARY | 2025-02-28 11:32 | XMS_ITS | Encounter Summary ---
Author Organization [facility] Address [address] [place] [address] Care Team Providers Care Subcontract Manager Name Role Phone Stanley Toledo MD Unavailable [phone] Stanley Toledo MD Primary Care Provider + [phone] Dora Santiago DEATH CLAIM CLERK Unavailable Vicente Joi DEATH CLAIM CLERK Unavailable Encounter Details Date Type Department [...] often do you attend chur ch or oriental orthodox services? Never 12/31/2023 Do [...] Recorded Patient Health Questionnaire-2 Score 0 12/31/2023 [facility] Questionnaire Answer Date [...] any time in the past 12 m [facility], were you homeless or [...] Visit [facility] 112 [facility] 100 [place] [address] Stanley Toledo MD 112 [facility] 100 [place] [address] documented as of this encounter Procedures Procedure Name Priority Date/Time Associated Diagnosis Comments RT PULMONARY FUNCTION TEST 03/23/2024 12:59 PM EDT documented in this encounter Results * RT PULMONARY FUNCTION TEST (03/23/2024 12:59 PM EDT) Anatomical Region Laterality Modality Other 03/23/2024 12:5 9 PM EDT Narrative 03/24/2024 5:50 PM EDT The [address] [address] Respiratory Report Signed Patient: ALEX GRAJEDA MR#: [id number] : 1945 Acct:[id number] Age/Sex: 78 / M ADM Date: 03/23/24 Loc: CARD Attending Dr: MAGDY AL Ordering Physician: MAGDY AL Date of Service: 03/23/24 Procedure(s): RT pulmonary function test Accession Number(s): [id number] cc: [facility] Test Date: 2024-03-23 Pat Name: ALEX GRAJEDA Department: Room: - Gender: Male Jury Consultant: Reymundo Alamo RRT : 1945 Requested By: 358 Order Number: [id number] Reading MD: Aayush Gallo Interpretive Statements Pulmonary [...] Signed By: 03/24/24 1750 DD/ 1259 TD/TT: Senior Premium Auditor: Procedure Note Radiology, Radiologist, MD - 03/24/2024 [place] [address] Respiratory Report Signed Patient: ALEX GRAJEDA HMR#: [id number] : 1945cct:[id number] Age/Sex: 78 / MADM Date: 03/23/24 Loc: CARD Attending Dr: MAGDY AL Ordering Physician: MAGDY AL Date of Service: 03/23/24 Procedure(s): RT pulmonary function test Accession Number(s): [id number] cc: [facility] Test Date: 2024-03-23 Pat Name: ALEX GRAJEDA Department: Room: - Gender: Male Jury Consultant: Reymundo Alamo RRT : 1945 Requested By: 358 Order Number: [id number] Silverio MD: Aayush Gallo Interpretive Statements Pulmonary function [...] D.O. Signed By:03/24/24 1750 DD/ 1259 TD/TT: Senior Premium Auditor: us Generic External Data Provider [facility] Final Result documented in this encounter Visit Diagnoses Not on filedocumented in this encounter Additional Health Concerns Assessment Noted Time PHQ-9 Depression Total Score: 3 05/12/20 23 1:00 PM EST A fall risk assessment has been complete d for the patient 12/31/2023 8:54 AM EDT documented as of this encounter Care Teams Subcontract Manager Relationship Specialty Start Date End Date Stanley Toledo MD [address] [place] [address] PCP - ACO Reach 10/17/22 Stanley Toledo MD [address] [place] [address] PCP - General Family Medicine 11/20/22 Dora Santiago LPN [address] [place] [address] Licensed Practical Nurse Family Medicine 12/22/23 Joi Zhang LPN [address] [place] [address] 08/26/24 documented as of this encounter
--- OUTSIDE RECORDS SUMMARY | 2025-02-28 11:32 | XMS_ITS | Encounter Summary ---
Author Organization [facility] Address [address] [place] [address] Care Team Providers Care Water Filtration Technician Name Role Phone Stanley Toledo MD Unavailable [phone] Stanley Toeldo MD Primary Care Provider [phone] Dora Santiago PROGRAM MANAGER Unavailable Christina Goddard PROGRAM MANAGER Unavailable Unavailable Joi Zhang PROGRAM MANAGER Unavailable Encounter Details Date Type Department Care Team (Late Contact Info) Description 01/02/2023 Orders Only [facility] 521 Family Medicine [address] [place] [address] Stanley Toledo MD 112 [facility] 100 [place] [address] Acute diffuse otitis externa of right ear [...] Visit [facility] 100 Family Medicine 112 [facility] 100 [place] [address] Stanley Toledo MD 112 [facility] 100 [place] [address] (Fax) documented as of this encounter Visit Diagnoses Diagnosis Acute diffuse otitis externa of right ear- Primary documented in this encounter Care Teams Water Filtration Technician Relationship Specialty Start Date End Date Stanley Toledo MD 112 [facility] 100 [place] [address] (Fax) PCP - ACO Reach 10/17/22 Stanley Toledo MD 112 [facility] 100 [place] [address] (Fax) PCP - General Family Medicine 11/20/22 Dora Santiago LPN [address] [place] [address] Licensed Practical Nurse Family Medicine 12/22/23 Christina Goddard LPN Licensed Practical Nurse Family Medicine 12/25/23 Joi Zhang LPN 112 [facility] 110 [place] [address] 08/26/24 documented as of this encounter
--- OUTSIDE RECORDS SUMMARY | 2025-02-28 11:32 | XMS_ITS | Encounter Summary ---
Author Organization [facility] Address [address] [place] [address] Care Team Providers Care Sanitarian Name Role Phone Stanley Toledo MD Unavailable [phone] Stanley Toledo MD Primary Care Provider [phone] Dora Santiago SOUND RECORDING TECHNICIAN Unavailable Vicente Joi SOUND RECORDING TECHNICIAN Unavailable Encounter Details Date Type Department [...] often do you attend chur ch or sikh services? Never 12/31/2023 Do you belong to any clubs o r organizations such as pentecostal groups, unions, fraternal or athletic groups, or [...] Recorded Patient Health Questionnaire-2 Score 0 12/31/2023 [facility] Answer Date [...] any time in the past 12 m [facility], were you homeless or living [...] Visit [facility] 112 [facility] 100 [place] [address] Stanley Toledo MD 112 [facility] 100 [place] [address] documented as of this encounter Procedures Procedure Name Priority Date/Time Associated Diagnosis Comments ITP 04/26/2024 12:19 PM EST documented in this encounter Results * ITP (04/26/2024 12:19 PM EST) Anatomical Region Laterality Modality Other 04/26/2024 12:1 9 PM EST Narrative 04/27/2024 8:20 PM EST The [address] [address] Cardiac Rehab Report Signed Patient: ALEX GRAJEDA MR#: [id number] : 1945 Acct:[id number] Age/Sex: 78 / M ADM Date: 04/26/24 Loc: CR Attending Dr: MAGDY AL Ordering Physician: Arnol Garnica D.O. Date of Service: 04/26/24 Procedure(s): ITP Accession Number(s): [id number] cc: [facility] Test Date: 2024-04-26 Pat Name: ALEX GRAJEDA Department: Room: - Gender: Male Fiber Technologist: : 1945 Requested By: ARNOL GARNICA Order Number: [id number] Reading MD: ARNOL GARNICA Interpretive Statements Session Date: Electronically Signed On 04-27-2024 20:20:06 EST by ARNOL GARNICA Dictated By: rAnol Garnica D.O. Signed By: 04/27/24201904/27/242019 DD/ 18 TD/TT: Assembler Dielectric Heater: Procedure Note Radiology, Radiologist, MD - 04/27/2024 [place] [address] Cardiac Rehab Report Signed Patient: ALEX GRAJEDA HMR#: [id number] : 1945cct:[id number] Age/Sex: 78 / MADM Date: 04/26/24 Loc: CR Attending Dr: MAGDY AL Ordering Physician: Arnol Garnica D.O. Date of Service: 04/26/24 Procedure(s): ITP Accession Number(s): [id number] cc: [facility] Test Date: 2024-04-26 Pat Name: ALEX GRAJEDA Department: Room: - Gender: Male Fiber Technologist: : 1945 Requested By: ARNOL GARNICA Order Number: [id number] Reading MD: ARNOL GARNICA Interpretive Statements Session Date: Electronically Signed On 04-27-2024 20:20:06 EST by ARNOL GARNICA Dictated By: Arnol Garnica D.O. Signed By:04/27/24201904/27/242019 DD/ 18 TD/TT: Assembler Dielectric Heater: us Generic External Data Provider [facility] Final Result documented in this encounter Visit Diagnoses Not on filedocumented in this encounter Additional Health Concerns Assessment Noted Time PHQ-9 Depression Total Score: 3 05/12/20 23 1:00 PM EST A fall risk assessment has been complete d for the patient 12/31/2023 8:54 AM EDT documented as of this encounter Care Teams Sanitarian Relationship Specialty Start Date End Date Stanley Toledo MD [address] [place] [address] PCP - ACO Reach 10/17/22 Stanley Toledo MD [address] [place] [address] PCP - General Family Medicine 11/20/22 Dora Santiago LPN [address] [place] [address] Licensed Practical Nurse Family Medicine 12/22/23 Joi Zhang LPN [address] [place] [address] 08/26/24 documented as of this encounter
--- OUTSIDE RECORDS SUMMARY | 2025-02-28 11:32 | XMS_ITS | Encounter Summary ---
Author Organization [facility] Address [address] [place] [address] Care Team Providers Care Cnc Mill Operator Name Role Phone Stanley Toledo MD Unavailable [phone] Stanley Toledo MD Primary Care Provider + [phone] Dora Santiago MACHINE TANK OPERATOR Unavailable Christina Goddard MACHINE TANK OPERATOR Unavailable Unavailable Joi Zhang MACHINE TANK OPERATOR Unavailable Encounter Details Date Type Department Care Team (Late Contact Info) Description 12/24/2022 Abstract [facility] 521 Family Medicine [address] [place] [address] Stanley Toledo MD [address] [address] Social History Tobacco Use Types Packs/Day Years [...] Upcoming Encounters Date Type Department Care Team ([facility] Contact Info) Description 05/10/2025 2:00 PM EST Office Visit [facility] 100 Family Medicine [address] [address] Stanley Toledo MD 112 [facility] 100 [place] [address] documented as of this encounter Visit Diagnoses Not on filedocumented in this encounter Care Teams Cnc Mill Operator Relationship Specialty Start Date End Date Stanley Toledo MD [address] [place] [address] (Fax) PCP - ACO Reach 10/17/22 Stanley Toledo MD [address] [place] [address] PCP - General Family Medicine 11/20/22 Dora Santiago LPN [address] [place] [address] Licensed Practical Nurse Family Medicine 12/22/23 Christina Goddard LPN Licensed Practical Nurse Family Medicine 12/25/23 Joi Zhang LPN [address] [place] [address] 08/26/24 documented as of this encounter
--- OUTSIDE RECORDS SUMMARY | 2025-02-28 11:32 | XMS_ITS | Encounter Summary ---
Author Organization [facility] Address [address] [place] [address] Care Team Providers Care Supervisor Slate Splitting Name Role Phone Stanley Toledo MD Unavailable [phone] Stanley Toledo MD Primary Care Provider + [phone] Dora Santiago REMOTE RUBY ON RAILS DEVELOPER Unavailable Joi Zhang REMOTE RUBY ON RAILS DEVELOPER Unavailable Encounter Details Date Type Department Care Team (Late st Contact Info) Description 01/21/2024 Orders Only [facility] [place] [address] Family Medicine 112 [facility] 100 [place] [address] Willy Lambert MD 703 [facility] 151 [place] [address] Social History Tobacco Use Types Packs/Day Years Used Date Smoking Tobacco: Every Day Cigarettes 0.5 61.2 Started: 12/31/1965 Smokeless Tobacco: Never Alcohol Use [...] Recorded Patient Health Questionnaire-2 Score 0 12/31/2023 [facility] of Occupat ionaz Health - Occupational Stress Questionnaire Answer Date [...] any time in the past 12 m [facility], were you homeless or living in a fpc (including now)? No 12/31/2023 Sex and Gender Information Value Date Recorded Sex Assigned at Not on file Legal Sex Male 7:16 PM EDT Gender Identity Not on file Sexual Orientation Not on file documented as of this encounter Plan of Treatment Upcoming Encounters Date Type Department Care Team (Late st Contact Info) Description 05/10/2025 2:00 PM EST Office Visit [facility] Family Medicine 112 [facility] 100 [place] [address] Stnaley Toledo MD 112 [facility] 100 [place] [address] documented as of this encounter Procedures Procedure [...] as of this encounter Care Teams Supervisor Slate Splitting Relationship Specialty Start Date End Date Stanley Toledo MD [address] [place] [address] PCP - ACO Reach 10/17/22 Stanley Toledo MD [address] [place] [address] PCP - General Family Medicine 11/20/22 Dora Santiago LPN [address] [place] [address] Licensed Practical Nurse Family Medicine 12/22/23 Joi Zhang LPN [address] [place] [address] 08/26/24 documented as of this encounter
--- OUTSIDE RECORDS SUMMARY | 2025-02-28 11:32 | XMS_ITS | Encounter Summary ---
Author Organization [facility] Address [address] [place] [address] Care Team Providers Care Finance Admin Name Role Phone Stanley Toledo MD Unavailable [phone] Stanley Toledo MD Primary Care Provider + [phone] JUDGE Unavailable Christina Goddard JUVENILE COURT JUDGE Unavailable Unavailable Joi Zhang JUVENILE COURT JUDGE Unavailable Encounter Details Date Type Department Care Team (Late Contact Info) Description 08/13/2023 Abstract [facility] [place] [facility] Family Medicine [address] [place] [address] Stanley Toledo MD [address] [address] (Fax) Social History Tobacco Use Types Packs/Day [...] [facility] 100 Family Medicine [address] [address] Stanley Toledo MD [address] [address] (Fax) documented as of this encounter Visit Diagnoses Not on filedocumented in this encounter Additional Health Concerns Assessment Noted Time PHQ-9 Depression Total Score: 3 05/12/20 23 1:00 PM EST documented as of this encounter Care Teams Finance Admin Relationship Specialty Start Date End Date Stanley Toledo MD [address] [place] [address] (Fax) PCP - ACO Reach 10/17/22 Stanley Toledo MD [address] [place] [address] PCP - General Family Medicine 11/20/22 Dora Santiago LPN [address] [place] [address] Licensed Practical Nurse Family Medicine 12/22/23 Christina Goddard LPN Licensed Practical Nurse Family Medicine 12/25/23 Joi Zhang LPN [address] [place] [address] 08/26/24 documented as of this encounter
--- OUTSIDE RECORDS SUMMARY | 2025-02-28 11:32 | XMS_ITS | Clinical Summary ---
Author Organization [facility] Address [address] [facility], [address] [place] [address] Care Team Providers Care Hospice Care Consultant Name Role Phone Stanley Toledo MD Primary [...] 1 tablet by mouth nightly 60 tablet Active albuterol sulfate HFA (PROVENTIL;VENT TOBI;PROAIR) 108 [...] nash ng 10/02/2024 Lower extremity edema 10/02/2024 Social History Tobacco Use Types Packs/Day Years Used Date Smoking Tobacco: Former Cigarettes Tobacco Cessation:Counseling Given: Not Answered [facility] Utilities Answer Date Recorded In the past 12 months has th e electric, gas, oil, or water [place] threatened to shut off services in your [...] or living in a jail (including now)? Patient unable to answer 10/02/2024 [...] 11/30/1962 Shingles vaccine (1 of 2) 11/30/1993 Annual Wellness Visit (Medicare) 10/02/2024 Flu vaccine (#1) 12/24/2024 03/19/2024, 05/2022, 05/20/2022, Additional history exists COVID-19 Vaccine ( season) 2025 03/19/2024, 02/16/2023, 03/29/2022, Additional history exists Pneumococcal 50+ years Vaccine [...] on patient's age to complete this topic Insurance MEDICARE HUMANA MEDICARE SUPP MEDICARE HUMANA MEDICARE SUPP MEDICARE HUMANA MEDICARE SUPP Advance Directives Documents on File Type Date Recorded Patient Park Recreation Manager Expl anation ACP-Advance Directive 10/06/2024 4:23 PM [...] Anderson Child Secondary Decision Maker Care Teams Hospice Care Consultant Relationship Specialty Start Date End Date Stanley Toledo MD PCP - General 10/02/24
--- OUTSIDE RECORDS SUMMARY | 2025-02-28 11:32 | XMS_ITS | Encounter Summary ---
Author Organization [facility] Address [address] [place] [address] Care Team Providers Care Color Consultant Name Role Phone Stanley Toledo MD Unavailable [phone] Stanley Toledo MD Primary Care Provider + [phone] Dora Santiago FRUIT RECEIVER Unavailable Christina Goddard FRUIT RECEIVER Unavailable Unavailable Joi Zhang FRUIT RECEIVER Unavailable Encounter Details Date Type Department Care Team (Late Contact Info) Description 12/17/2022 Abstract [facility] 521 Family Medicine [address] [place] [address] Stanley Toledo MD [address] [address] Social History Tobacco Use Types Packs/Day Years [...] Upcoming Encounters Date Type Department Care Team ([facility] Contact Info) Description 05/10/2025 2:00 PM EST Office Visit [facility] 100 Family Medicine [address] [address] Stanley Toledo MD 112 [facility] 100 [place] [address] documented as of this encounter Visit Diagnoses Not on filedocumented in this encounter Care Teams Color Consultant Relationship Specialty Start Date End Date Stanley Toledo MD [address] [place] [address] (Fax) PCP - ACO Reach 10/17/22 Stanley Toledo MD [address] [place] [address] PCP - General Family Medicine 11/20/22 Dora Santiago LPN [address] [place] [address] Licensed Practical Nurse Family Medicine 12/22/23 Christina Goddard LPN Licensed Practical Nurse Family Medicine 12/25/23 Joi Zhang LPN [address] [place] [address] 08/26/24 documented as of this encounter
--- OUTSIDE RECORDS SUMMARY | 2025-02-28 11:32 | XMS_ITS | Encounter Summary ---
Author Organization [facility] Address [address] [place] [address] Care Team Providers Care Automobile Carpets Molder Name Role Phone Stanley Toledo MD Unavailable [phone] Stanley Toledo MD Primary Care Provider + [phone] Dora Santiago RN MIDWIFE Unavailable Christina Goddard RN MIDWIFE Unavailable Unavailable Joi Zhang RN MIDWIFE Unavailable Encounter Details Date Type Department Care Team (Late Contact Info) Description 07/02/2023 Abstract [facility] 521 Family Medicine [address] [place] [address] Stanley Toledo MD [address] [address] (Fax) Social History Tobacco Use Types Packs/Day [...] [facility] 100 Family Medicine [address] [address] Stanley Toledo MD [address] [address] (Fax) documented as of this encounter Visit Diagnoses Not on filedocumented in this encounter Additional Health Concerns Assessment Noted Time PHQ-9 Depression Total Score: 3 05/12/20 23 1:00 PM EST documented as of this encounter Care Teams Automobile Carpets Molder Relationship Specialty Start Date End Date Stanley Toledo MD [address] [place] [address] (Fax) PCP - ACO Reach 10/17/22 Stanley Toledo MD [address] [place] [address] PCP - General Family Medicine 11/20/22 Dora Santiago LPN [address] [place] [address] Licensed Practical Nurse Family Medicine 12/22/23 Christina Goddard LPN Licensed Practical Nurse Family Medicine 12/25/23 Joi Zhang LPN [address] [place] [address] 08/26/24 documented as of this encounter
--- OUTSIDE RECORDS SUMMARY | 2025-02-28 11:32 | XMS_ITS | Encounter Summary ---
Author Organization [facility] Address [address] [place] [address] Phone Care Team Providers Care Poultry Debeaker Name Role Phone Stanley Toledo MD Primary Care Provider [phone] Ruby Vickers MD Unavailable Encounter Details Date Type Department Care Team (Late st Contact Info) Description 02/02/[address] [facility] [address] [place] [id number] Scanning, Generic Provider Social History Tobacco Use [...] Visit [facility] 703 [facility] 250 [place] [address] Teo Stokes MD 703 [facility] 2, [address] [place] [address] documented as of this encounter Procedures Procedure Name Priority Date/Time Associated Diagnosis Comments OUTSIDE LAB SCAN 02/02/2025 documented in this encounter Results * OUTSIDE LAB SCAN (02/02/2025) Narrative 02/02/2025 Ordered by an unspecified provider. us Generic Provider Scanning OUTSIDE SCAN Final Result documented in this encounter Visit Diagnoses Not on filedocumented in this encounter Additional Health Concerns Assessment Noted Time A fall risk assessment has been complete d for the patient 09/10/2024 9:37 AM EDT documented as of this encounter Care Teams Poultry Debeaker Relationship Specialty Start Date End Date Stanley Toledo MD [address] [place] [address] PCP - General 05/17/22 Ruby Vickers MD [address] [facility] Medical Office Bldg, [address] [place] [address] Music Theory Teacher Electrophysiology 10/04/24 documented as of this encounter
--- OUTSIDE RECORDS SUMMARY | 2025-02-28 11:32 | XMS_ITS | Encounter Summary ---
Author Organization [facility] Address [address] [place] [address] Care Team Providers Care Aluminum Molder Name Role Phone Stanley Toledo MD Unavailable [phone] Stanley Toledo MD Primary Care Provider [phone] Dora Santiago HOOP PUNCH AND COILER OPERATOR HELPER Unavailable Vicente Joi HOOP PUNCH AND COILER OPERATOR HELPER Unavailable Encounter Details Date Type Department Care Team (Late st Contact Info) Description 01/27/2024 Abstract [facility] [place] 521 Family Medicine [address] [facility] [place] [address] Dariusz Pruett MD 703 [facility] 2, [address] [address] Social History Tobacco Use Types Packs/Day Years [...] often do you attend chur ch or faith services? Never 12/31/2023 Do you belong to any clubs o r organizations such as presybeterian groups, unions, fraternal or athletic groups, or [...] Recorded Patient Health Questionnaire-2 Score 0 12/31/2023 [facility] of Occupat ionor Health - Occupational Stress Questionnaire Answer Date [...] any time in the past 12 m [facility], were you homeless or living in a alf (including now)? No 12/31/2023 Sex and Gender [...] Visit [facility] 112 [facility] 100 [place] [address] Stanley Toledo MD 112 [facility] 100 [place] [address] documented as of this encounter Visit Diagnoses Not on filedocumented in this encounter Additional Health Concerns Assessment Noted Time PHQ-9 Depression Total Score: 3 05/12/20 23 1:00 PM EST A fall risk assessment has been complete d for the patient 12/31/2023 8:54 AM EDT documented as of this encounter Care Teams Aluminum Molder Relationship Specialty Start Date End Date Stanley Toledo MD [address] [place] [address] (Fax) PCP - ACO Reach 10/17/22 Stanley Toledo MD [address] [place] [address] PCP - General Family Medicine 11/20/22 Dora Santiago LPN [address] [place] [address] Licensed Practical Nurse Family Medicine 12/22/23 Joi Zhang LPN [address] [place] [address] 08/26/24 documented as of this encounter
--- OUTSIDE RECORDS SUMMARY | 2025-02-28 11:32 | XMS_ITS | Encounter Summary ---
Author Organization [facility] Address [address] [place] [address] Care Team Providers Care Nutrition Services Assistant Name Role Phone Stanley Toledo MD Unavailable [phone] Stanley Toledo MD Primary Care Provider + [phone] Dora Santiago VACUUM FORM OPERATOR Unavailable Vicente Joi VACUUM FORM OPERATOR Unavailable Encounter Details Date Type Department [...] often do you attend chur ch or latter day services? Never 12/31/2023 Do you belong to [...] Questionnaire-2 Score 0 12/31/[address] [facility] Answer Date [...] any time in the past 12 m [facility], were you homeless or living [...] [facility] 112 [facility] 100 [place] [address] Stanley Toledo MD 112 [facility] 100 [place] [address] documented as of this encounter Procedures Procedure Name Priority Date/Time Associated Diagnosis Comments ITP 03/24/2024 11:46 AM EDT documented in this encounter Results * ITP (03/24/2024 11:46 AM EDT) Anatomical Region Laterality Modality Other 03/24/2024 11:4 6 AM EDT Narrative 03/24/2024 11:29 PM EDT The [address] [address] Cardiac Rehab Report Signed Patient: ALEX GRAJEDA MR#: [id number] : 1945 Acct:[id number] Age/Sex: 78 / M ADM Date: 03/24/24 Loc: CR Attending Dr: MAGDY AL Ordering Physician: Arnol Garnica D.O. Date of Service: 03/24/24 Procedure(s): ITP Accession Number(s): [id number] cc: [facility] Test Date: 2024-03-24 Pat Name: ALEX GRAJEDA Department: Room: - Gender: Male General Engineer: : 1945 Requested By: ARNOL GARNICA Order Number: [id number] Silverio MD: ARNOL GARNICA Interpretive Statements Session Date: Electronically Signed On 03-24-2024 23:29:20 EDT by ARNOL GARNICA Dictated By: Arnol Garnica D.O. Signed By: 03/24/24232803/24/242328 DD/ 1146 TD/TT: Senior Investment Analyst: Procedure Note Radiology, Radiologist, MD - 03/24/2024 [place] [address] Cardiac Rehab Report Signed Patient: ALEX GRAJEDA HMR#: [id number] : 1945cct:[id number] Age/Sex: 78 / MADM Date: 03/24/24 Loc: CR Attending Dr: MAGDY AL Ordering Physician: Arnol Garnica D.O. Date of Service: 03/24/24 Procedure(s): ITP Accession Number(s): [id number] cc: [facility] Test Date: 2024-03-24 Pat Name: ALEX GRAJEDA Department: Room: - Gender: Male General Engineer: : 1945 Requested By: ARNOL GARNICA Order Number: [id number] Silverio CASILLAS: ARNOL GARNICA Interpretive Statements Session Date: Electronically Signed On 03-24-2024 23:29:20 EDT by ARNOL GARNICA Dictated By: Arnol Garnica D.O. Signed By:03/24/24232803/24/242328 DD/ 1146 TD/TT: Senior Investment Analyst: us Generic External Data Provider [facility] Final Result documented in this encounter Visit Diagnoses Not on filedocumented in this encounter Additional Health Concerns Assessment Noted Time PHQ-9 Depression Total Score: 3 05/12/20 23 1:00 PM EST A fall risk assessment has been complete d for the patient 12/31/2023 8:54 AM EDT documented as of this encounter Care Teams Nutrition Services Assistant Relationship Specialty Start Date End Date Stanley Toledo MD [address] [place] [address] PCP - ACO Reach 10/17/22 Stanley Toledo MD [address] [place] [address] PCP - General Family Medicine 11/20/22 Dora Santiago LPN [address] [place] [address] Licensed Practical Nurse Family Medicine 12/22/23 Joi Zhang LPN [address] [place] [address] 08/26/24 documented as of this encounter
--- OUTSIDE RECORDS SUMMARY | 2025-02-28 11:32 | XMS_ITS | Encounter Summary ---
Author Organization [facility] Address [address] [place] [address] Care Team Providers Care Power Superintendent Name Role Phone Stanley Toledo MD Unavailable [phone] Stanley Toledo MD Primary Care Provider + [phone] Dora Santiago CHILDREN'S AUTHOR Unavailable Christina Goddard CHILDREN'S AUTHOR Unavailable Unavailable Joi Zhang CHILDREN'S AUTHOR Unavailable Encounter Details Date Type Department Care Team ([facility] Contact Info) Description 01/02/2023 Abstract [facility] [place] [facility] Family Medicine [address] [place] [address] Stanley Toledo MD [address] [address] Social History Tobacco Use Types Packs/Day Years [...] Upcoming Encounters Date Type Department Care Team ([facility] Contact Info) Description 05/10/2025 2:00 PM EST Office Visit [facility] [place] 100 Family Medicine [address] [address] Stanley Toledo MD [address] [place] [address] (Fax) documented as of this encounter Visit Diagnoses Not on filedocumented in this encounter Care Teams Power Superintendent Relationship Specialty Start Date End Date Stanley Toledo MD [address] [place] [address] (Fax) PCP - ACO Reach 10/17/22 Stanley Toledo MD [address] [place] [address] (Fax) PCP - General Family Medicine 11/20/22 Dora Santiago LPN [address] [place] [address] Licensed Practical Nurse Family Medicine 12/22/23 Christina Goddard LPN Licensed Practical Nurse Family Medicine 12/25/23 Joi Zhang LPN [address] [place] [address] 08/26/24 documented as of this encounter
--- OUTSIDE RECORDS SUMMARY | 2025-02-28 11:32 | XMS_ITS | Encounter Summary ---
Author Organization [facility] Address [address] [place] [address] Care Team Providers Care Weight Reduction Specialist Name Role Phone Stanley Toledo MD Unavailable [phone] Stanley Toledo MD Primary Care Provider [phone] Dora Santiago PRESSURISED CONTAINER FILLER Unavailable Christina Goddard PRESSURISED CONTAINER FILLER Unavailable Unavailable Joi Zhagn PRESSURISED CONTAINER FILLER Unavailable Encounter Details Date Type Department Care Team (Late Contact Info) Description 12/10/2022 Abstract [facility] 521 Family Medicine [address] [place] [address] Stanley Toledo MD [address] [address] (Fax) Social History Tobacco Use Types Packs/Day [...] Visit [facility] 100 Family Medicine [address] [address] Stanley Toledo MD [address] [address] (Fax) documented as of this encounter Visit Diagnoses Not on filedocumented in this encounter Care Teams Weight Reduction Specialist Relationship Specialty Start Date End Date Stanley Toledo MD [address] [place] [address] PCP - ACO Reach 10/17/22 Stanley Toledo MD [address] [place] [address] PCP - General Family Medicine 11/20/22 Dora Santiago LPN [address] [place] [address] Licensed Practical Nurse Family Medicine 12/22/23 Christina Goddard LPN Licensed Practical Nurse Family Medicine 12/25/23 Joi Zhang LPN [address] [place] [address] 08/26/24 documented as of this encounter
--- OUTSIDE RECORDS SUMMARY | 2025-02-28 11:32 | XMS_ITS | Encounter Summary ---
Author Organization [facility] Address [address] [place] [address] Care Team Providers Care Analytical Lead Name Role Phone Stnaley Toledo MD Unavailable [phone] Stanley Toledo MD Primary Care Provider + [phone] Dora Santiago STEREOTYPER HELPER Unavailable Christina Goddard STEREOTYPER HELPER Unavailable Unavailable Joi Zhang STEREOTYPER HELPER Unavailable Encounter Details Date Type Department Care Team (Late Contact Info) Description 04/14/2023 Abstract [facility] [place] [facility] Family Medicine [address] [place] [address] Robe Pryor MD [address] [place] [address] Social History Tobacco Use Types Packs/Day Years [...] Visit [facility] [address] [address] Stanley Toledo MD 112 [facility] 100 [place] [address] (Fax) documented as of this encounter Visit Diagnoses Not on filedocumented in this encounter Care Teams Analytical Lead Relationship Specialty Start Date End Date Stanley Toledo MD [address] [place] [address] PCP - ACO Reach 10/17/22 Stanley Toledo MD [address] [place] [address] PCP - General Family Medicine 11/20/22 Dora Santiago LPN [address] [place] [address] Licensed Practical Nurse Family Medicine 12/22/23 Christina Goddard LPN Licensed Practical Nurse Family Medicine 12/25/23 Joi Zhang LPN [address] [place] [address] 08/26/24 documented as of this encounter
--- OUTSIDE RECORDS SUMMARY | 2025-02-28 11:32 | XMS_ITS | Encounter Summary ---
Author Organization [facility] Address [address] [place] [address] Care Team Providers Care Curtain Cutter Hand Name Role Phone Stanley Toledo MD Unavailable [phone] Stanley Toledo MD Primary Care Provider [phone] Dora Santiago HUMID SYSTEM OPERATOR Unavailable Christina Goddard HUMID SYSTEM OPERATOR Unavailable Unavailable Joi Zhang HUMID SYSTEM OPERATOR Unavailable Encounter Details Date Type Department Care Team (Late Contact Info) Description 04/29/2023 Abstract [facility] [place] [facility] Family Medicine [address] [place] [address] Stanley Toledo MD [address] [address] (Fax) Social History Tobacco Use Types Packs/Day [...] [facility] [address] [address] Stanley Toledo MD [address] [address] (Fax) documented as of this encounter Visit Diagnoses Not on filedocumented in this encounter Care Teams Curtain Cutter Hand Relationship Specialty Start Date End Date Stanley Toledo MD [address] [place] [address] PCP - ACO Reach 10/17/22 Stanley Toledo MD [address] [place] [address] PCP - General Family Medicine 11/20/22 Dora Santiago LPN [address] [place] [address] Licensed Practical Nurse Family Medicine 12/22/23 Christina Goddard LPN Licensed Practical Nurse Family Medicine 12/25/23 Joi Zhang LPN [address] [place] [address] 08/26/24 documented as of this encounter
--- OUTSIDE RECORDS SUMMARY | 2025-02-28 11:32 | XMS_ITS | Encounter Summary ---
Author Organization [facility] Address [address] [place] [address] Care Team Providers Care Gantry Rigger Name Role Phone Stanley Toledo MD Unavailable [phone] Stanley Toledo MD Primary Care Provider [phone] Dora Santiago AVIATION TACTICAL READINESS OFFICER Unavailable Christina Goddard AVIATION TACTICAL READINESS OFFICER Unavailable Unavailable Joi Zhang AVIATION TACTICAL READINESS OFFICER Unavailable Encounter Details Date Type Department Care Team (Late Contact Info) Description 02/10/2023 Abstract [facility] Family Medicine [address] [place] [address] Stanley Toledo MD [address] [address] (Fax) Social History Tobacco Use Types Packs/Day [...] Visit [facility] [address] [address] Stanley Toledo MD [address] [address] (Fax) documented as of this encounter Visit Diagnoses Not on filedocumented in this encounter Care Teams Gantry Rigger Relationship Specialty Start Date End Date Stanley Toledo MD [address] [place] [address] PCP - ACO Reach 10/17/22 Stanley Toledo MD [address] [place] [address] PCP - General Family Medicine 11/20/22 Dora Santiago LPN [address] [place] [address] Licensed Practical Nurse Family Medicine 12/22/23 Christina Goddard LPN Licensed Practical Nurse Family Medicine 12/25/23 Joi Zhang LPN [address] [place] [address] 08/26/24 documented as of this encounter
--- OUTSIDE RECORDS SUMMARY | 2025-02-28 11:32 | XMS_ITS | Clinical Summary ---
Author Organization [facility] Address [address] [place] [address] Care Team Providers Care Teacher Drama Name Role Phone Stanley Toledo MD Unavailable [phone] Stanley Toledo MD Primary Care Provider + [phone] Joi Zhang LPN Unavailable Allergies No known [...] (sob and cough) 1 each 4 Active clopidogrel (Plavix) 75 MG tablet Take [...] 60 tablet 11 5 07/30/19 26 Active cephalexin (Keflex) 250 MG capsule Take 250 mg by mouth 3 (three) times a week On Friday, Friday, Friday 5 Active QUEtiapine (SEROquel) 25 MG tablet Take 25 mg by mouth at bedtime Active donepezil (Aricept) 10 MG tabletIndicatio ns: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 disturbance, psychotic disturbance, mood disturbance, or anxiety (HCC) Take 2 tablets (20 mg) by mouth at bedtime 5 05/18/20 25 Active potassium chloride CR (Klor-Con M20) 20 MEQ ER tablet Take 20 mEq by mouth in the morning. 4 02/18/20 Active Problems Problem Noted Date Diagnosed Date [...] Encounters Date Type Department Care Team Description 02/09/2025 Abstract [facility] Family Medicine [address] [place] [address] Stanley Toledo MD 02/02/2025 Telephone [facility] Family [facility] [address] [place] [phone] Stanley Toledo MD 02/02/2025 Clinisync Result Encounter [facility] External Department Unsolicited Provider, Generic External Data 01/31/2025 Patient Outreach [facility] [address] [place] [address] Joi Zhang, [facility] 01/13/2025 Abstract [facility] [address] [place] [address] Stanley Toledo MD 01/12/2025 Telephone [facility] [address] [address] [place] [address] Stanley Toledo MD 12/30/2024 Patient Outreach [facility] [address] [place] [address] Joi Zhang [facility] 12/20/2024 Patient Outreach [facility] [address] [place] [address] Joi Zhang, [facility] 2024 Abstract [facility] [address] [address] [place] [address] Stanley Toledo MD from Last 3 Months Immunizations Immunization Administration [...] 61.2 S tarted: 12/31/1965 Smokeless Tobacco: Never Tobacco [...] often do you attend chur ch or lutheran services? Never 12/31/2023 Do you belong to any clubs o r organizations such as samaritan groups, unions, fraternal or athletic groups, or [...] Recorded Patient Health Questionnaire-2 Score 0 05/13/2024 [facility] - [...] time in the past [address] [facility], were you homeless or living in a [...] 2:00 PM EST Office Visit [facility] Family Medicine 112 [facility] 100 [place] [address] Stanley Toledo MD 112 [facility] 100 [place] [address] Health Maintenance Due Date Last Done Comments Influenza Vaccine (#1) 2025 4, 03/26/2023, 05/20/2022, Additional history exists Medicare Annual Wellness (AWV) 05/13/2025 05/13/2024 , 05/12/2023 Pneumococcal Vaccine: 65+ Years Completed 4, 04/23/2021 Procedures Procedure Name Priority Date/Time Associated Diagnosis Comments ALL HEMOGLOBIN Routine 02/02/2025 1:01 PM EDT from Last 3 Months Results * (ABNORMAL) ALL HEMOGLOBIN (02/02/2025 1:01 PM EDT) Pathologist [facility] HGB 10.9(L) 14.0 - 18.0 g/dL TB 02/02/2025 1:01 PM EDT 02/02/2025 1:04 PM EDT Narrative [facility] - 02/02/2025 1:15 PM EDT us Generic External Data Provider THOMAS F inal Result THOM[facility] from Last 3 Months Insurance MEDICARE [facility] Care Teams Teacher Drama Relationship Specialty Start Date End Date Stanley Toledo MD [address] [place] [address] (Fax) PCP - ACO Reach 10/17/22 Stanley Toledo MD [address] [place] [address] (Fax) PCP - General Family Medicine 11/20/22 Joi Zhang LPN [address] [place] [address] 08/26/24
--- OUTSIDE RECORDS SUMMARY | 2025-02-28 11:32 | XMS_ITS | Encounter Summary ---
Author Organization [facility] Address [address] [place] [address] Care Team Providers Care Finish Molder Name Role Phone Stanley Toledo MD Unavailable [phone] Stanley Toledo MD Primary Care Provider + [phone] Joi Zhang LPN Unavailable Encounter Details Date Type Department Care Team (Late st Contact Info) Description 10/27/2024 Abstract [facility] Family Medicine 112 [facility] 100 [place] [address] Stanley Toledo MD 112 [facility] 100 [place] [address] (Fax) Social History Tobacco Use Types Packs/Day [...] any clubs o r organizations such as yazidi groups, unions, fraternal or athletic groups, or [...] Patient Health Questionnaire-2 Score 0 05/13/2024 [facility] [...] time in the past 12 m [facility], were you homeless or living in a [...] Visit [facility] 112 [facility] 100 [place] [address] Stanley Toledo MD 112 [facility] 100 [place] [address] (Fax) documented as of this encounter Visit Diagnoses Not on filedocumented in this encounter Additional Health Concerns Assessment Noted Time PHQ-9 Depression Total Score: 3 05/13/20 24 2:00 PM EST A fall risk assessment has been complete d for the patient 12/31/2023 8:54 AM EDT documented as of this encounter Care Teams Finish Molder Relationship Specialty Start Date End Date Stanley Toledo MD 112 [facility] 100 [place] [address] PCP - ACO Reach 10/17/22 Stalney Toledo MD [address] [place] [address] PCP - General Family Medicine 11/20/22 Joi Zhang LPN [address] [place] [address] 08/26/24 documented as of this encounter
--- OUTSIDE RECORDS SUMMARY | 2025-02-28 11:32 | XMS_ITS | Encounter Summary ---
Author Organization [facility] Address [address] [place] [address] Care Team Providers Care Regulatory Affairs Portfolio Leader Name Role Phone Stanley Toledo MD Unavailable [phone] Stanley Toledo MD Primary Care Provider + [phone] Joi Zhang LPN Unavailable Encounter Details Date Type Department Care Team (Late st Contact Info) Description 10/27/2024 Abstract [facility] Family Medicine 112 [facility] 100 [place] [address] Stanley Toledo MD 112 [facility] 100 [place] [address] (Fax) Social History Tobacco Use Types Packs/Day [...] often do you attend chur ch or sabianist services? Never 12/31/2023 Do you belong to any clubs o r organizations such as lutheran groups, unions, fraternal or athletic groups, or [...] Recorded Patient Health Questionnaire-2 Score 0 05/13/2024 [facility] - Occupational [...] time in the past [address] [facility], were you homeless or living in a snf (including now)? No 12/31/2023 Sex and Gender [...] [facility] 112 [facility] 100 [place] [address] Stanley Toledo MD 112 [facility] 100 [place] [address] (Fax) documented as of this encounter Visit Diagnoses Not on filedocumented in this encounter Additional Health Concerns Assessment Noted Time PHQ-9 Depression Total Score: 3 05/13/20 24 2:00 PM EST A fall risk assessment has been complete d for the patient 12/31/2023 8:54 AM EDT documented as of this encounter Care Teams Regulatory Affairs Portfolio Leader Relationship Specialty Start Date End Date Stanley Toledo MD 112 [facility] 100 [place] [address] PCP - ACO Reach 10/17/22 Stanley Toledo MD [address] [place] [address] PCP - General Family Medicine 11/20/22 Joi Zhang LPN [address] [place] [address] 08/26/24 documented as of this encounter
--- OUTSIDE RECORDS SUMMARY | 2025-02-28 11:32 | XMS_ITS | Encounter Summary ---
Author Organization [facility] Address [address] [place] [address] Care Team Providers Care Style Advisor Name Role Phone Stanley Toledo MD Unavailable [phone] Stanley Toledo MD Primary Care Provider + [phone] Dora Santiago VOLUNTEER MANAGER Unavailable Christina Goddard VOLUNTEER MANAGER Unavailable Unavailable Joi Zhang VOLUNTEER MANAGER Unavailable Encounter Details Date Type Department Care Team (Late Contact Info) Description 01/22/2023 Abstract [facility] Family Medicine [address] [place] [address] Teo Stokes MD 703 [facility] 2, [address] [address] Social History Tobacco Use Types Packs/Day Years [...] Visit [facility] 112 [facility] 100 [place] [address] Stanely Toledo MD 112 [facility] 100 [place] [address] (Fax) documented as of this encounter Visit Diagnoses Not on filedocumented in this encounter Care Teams Style Advisor Relationship Specialty Start Date End Date Stanley Toledo MD [address] [place] [address] (Fax) PCP - ACO Reach 10/17/22 Stanley Toledo MD [address] [place] [address] (Fax) PCP - General Family Medicine 11/20/22 Dora Santiago LPN [address] [place] [address] Licensed Practical Nurse Family Medicine 12/22/23 Christina Goddard LPN Licensed Practical Nurse Family Medicine 12/25/23 Joi Zhang LPN [address] [place] [address] 08/26/24 documented as of this encounter
--- OUTSIDE RECORDS SUMMARY | 2025-02-28 11:32 | XMS_ITS | Encounter Summary ---
Author Organization [facility] Address [address] [place] [address] Care Team Providers Care Bead Worker Sewing Name Role Phone Stanley Toledo MD Unavailable [phone] Stanley Toledo MD Primary Care Provider + [phone] Dora Santiago EXECUTIVE LEGAL SECRETARY Unavailable Christina Goddard EXECUTIVE LEGAL SECRETARY Unavailable Unavailable Joi Zhang EXECUTIVE LEGAL SECRETARY Unavailable Encounter Details Date Type Department Care Team (Late Contact Info) Description 08/06/2023 Abstract [facility] Family Medicine [address] [place] [address] Stanley Toledo MD [address] [address] (Fax) Social History Tobacco Use Types Packs/Day [...] [facility] Family Medicine [address] [address] Stanley Toledo MD [address] [address] (Fax) documented as of this encounter Visit Diagnoses Not on filedocumented in this encounter Additional Health Concerns Assessment Noted Time PHQ-9 Depression Total Score: 3 05/12/20 23 1:00 PM EST documented as of this encounter Care Teams Bead Worker Sewing Relationship Specialty Start Date End Date Stanley Toledo MD [address] [place] [address] (Fax) PCP - ACO Reach 10/17/22 Stanley Toledo MD [address] [place] [address] PCP - General Family Medicine 11/20/22 Dora Santiago LPN [address] [place] [address] Licensed Practical Nurse Family Medicine 12/22/23 Christina Goddard LPN Licensed Practical Nurse Family Medicine 12/25/23 Joi Zhang LPN [address] [place] [address] 08/26/24 documented as of this encounter
--- OUTSIDE RECORDS SUMMARY | 2025-02-28 11:32 | XMS_ITS | Clinical Summary ---
Author Organization [facility] Address [address] [place] [address] Care Team Providers Care Air Carrier Operations Inspector Name Role Phone Stanley Toledo MD Primary [...] 75+ series) 11/30/2018 Advance Directive Discussion 05/26/2024 Covid-19 Vaccine ( - 2024- season) 2025 Influenza Vaccine (#1) 2025 Insurance MEDICARE Care Teams Air Carrier Operations Inspector Relationship Specialty Start Date End Date Stanley Toledo MD [address] [place] [address] PCP - General Family Medicine 01/21/24
--- OUTSIDE RECORDS SUMMARY | 2025-02-28 11:32 | XMS_ITS | Encounter Summary ---
Author Organization [facility] Address [address] [place] [address] Care Team Providers Care Brim Stiffener Name Role Phone Stanley Toledo MD Unavailable [phone] Stanley Toledo MD Primary Care Provider [phone] Dora Santiago CIRCULATION ASSISTANT Unavailable Christina Goddard CIRCULATION ASSISTANT Unavailable Unavailable Joi Zhang CIRCULATION ASSISTANT Unavailable Encounter Details Date Type Department Care Team (Late Contact Info) Description 12/11/2022 Abstract [facility] Family Medicine [address] [place] [address] Stanley Toledo MD [address] [address] (Fax) Social History Tobacco Use Types Packs/Day [...] Visit [facility] Family Medicine [address] [address] Stanley Toledo MD [address] [address] (Fax) documented as of this encounter Visit Diagnoses Not on filedocumented in this encounter Care Teams Brim Stiffener Relationship Specialty Start Date End Date Stanley Toledo MD [address] [place] [address] PCP - ACO Reach 10/17/22 Stanley Toledo MD [address] [place] [address] PCP - General Family Medicine 11/20/22 Dora Santiago LPN [address] [place] [address] Licensed Practical Nurse Family Medicine 12/22/23 Christina Goddard LPN Licensed Practical Nurse Family Medicine 12/25/23 Joi Zhang LPN [address] [place] [address] 08/26/24 documented as of this encounter
--- OUTSIDE RECORDS SUMMARY | 2025-02-28 11:32 | XMS_ITS | Encounter Summary ---
Author Organization [facility] Address [address] [place] [address] Care Team Providers Care Inclusion Manager Name Role Phone Stanley Toledo MD Unavailable [phone] Stanley Toledo MD Primary Care Provider + [phone] Dora Santiago ROOF SHINGLER Unavailable Christina Goddard ROOF SHINGLER Unavailable Unavailable Joi Zhang ROOF SHINGLER Unavailable Encounter Details Date Type Department Care Team (Late Contact Info) Description 08/06/2023 Abstract [facility] Family Medicine [address] [place] [address] Stanley Toledo MD [address] [address] (Fax) Social History Tobacco Use Types Packs/Day [...] Visit [facility] Family Medicine [address] [address] Stanley Toledo MD [address] [address] (Fax) documented as of this encounter Visit Diagnoses Not on filedocumented in this encounter Additional Health Concerns Assessment Noted Time PHQ-9 Depression Total Score: 3 05/12/20 23 1:00 PM EST documented as of this encounter Care Teams Inclusion Manager Relationship Specialty Start Date End Date Stanley Toledo MD [address] [place] [address] (Fax) PCP - ACO Reach 10/17/22 Stanley Toledo MD [address] [place] [address] PCP - General Family Medicine 11/20/22 Dora Santiago LPN [address] [place] [address] Licensed Practical Nurse Family Medicine 12/22/23 Christina Goddard LPN Licensed Practical Nurse Family Medicine 12/25/23 Joi Zhang LPN [address] [place] [address] 08/26/24 documented as of this encounter
--- OUTSIDE RECORDS SUMMARY | 2025-02-28 11:32 | XMS_ITS | Encounter Summary ---
Author Organization [facility] Address [address] [place] [address] Care Team Providers Care Lumber Press Operator Name Role Phone Stanley Toledo MD Unavailable [phone] Stanley Toledo MD Primary Care Provider + [phone] Joi Zhang LPN Unavailable Encounter Details Date Type Department Care Team (Late st Contact Info) Description 10/26/2024 Abstract [facility] Family Medicine [address] [facility] 100 [place] [address] Stanley Toledo MD 112 [facility] 100 [place] [address] Social History Tobacco Use Types Packs/Day Years [...] often do you attend chur ch or tenriism services? Never 12/31/2023 Do you belong to any clubs o r organizations such as shinto groups, unions, fraternal or athletic groups, or [...] Recorded Patient Health Questionnaire-2 Score 0 05/13/2024 [facility] Occupat ional [...] any time in the past 12 m [facility], were you homeless or living in [...] [facility] [address] [facility] 100 [place] [address] Stanley Toledo MD 112 [facility] 100 [place] [address] (Fax) documented as of this encounter Visit Diagnoses Not on filedocumented in this encounter Additional Health Concerns Assessment Noted Time PHQ-9 Depression Total Score: 3 05/13/20 24 2:00 PM EST A fall risk assessment has been complete d for the patient 12/31/2023 8:54 AM EDT documented as of this encounter Care Teams Lumber Press Operator Relationship Specialty Start Date End Date Stanley Toledo MD 112 [facility] 100 [place] [address] PCP - ACO Reach 10/17/22 Stanley Toledo MD [address] [place] [address] PCP - General Family Medicine 11/20/22 Joi Zhang LPN [address] [place] [address] 08/26/24 documented as of this encounter
--- OUTSIDE RECORDS SUMMARY | 2025-02-28 11:33 | XMS_ITS | Encounter Summary ---
Author Organization [facility] Address [address] [place] [address] Phone Care Team Providers Care Data Communications Analyst Name Role Phone Stanley Toledo MD Primary Care Provider Ruby Vickers MD Unavailable Encounter Details Date Type Department Care Team (Late st Contact Info) Description 03/24/2024 Scanned Document [facility] [address] [place] [phone] Scanning, Generic Provider Social History Tobacco Use [...] EST Office Visit [facility] 703 [facility] [address] [place] [address] Teo Stokes MD 703 [facility] 2, [address] [place] [address] documented as of this encounter [...] documented as of this encounter Care Teams Data Communications Analyst Relationship Specialty Start Date End Date Stanley Toledo MD [address] [place] [address] PCP - General 05/17/22 Ruby Vickers MD 125 [address] [facility] Medical Office Bldg, [address] [place] [address] Clinical Resource Manager Electrophysiology 10/04/24 documented as of this encounter
--- OUTSIDE RECORDS SUMMARY | 2025-02-28 11:33 | XMS_ITS | Encounter Summary ---
Author Organization [facility] Address [address] [address] Phone Care Team Providers Care Flight Information Expediter Name Role Phone Stanley Toledo MD Primary Care Provider Ruby Vickers MD Unavailable Encounter Details Date Type Department Care Team (Late st Contact Info) Description 08/10/2024 Scanned Document [facility] [address] Virtual [place] [address] Scanning, Generic Provider Social History [...] EST Office Visit [facility] 703 [facility] 250 [place] [address] Teo Stokes MD 703 [facility] 2, [address] [place] [address] documented as of this encounter [...] documented as of this encounter Care Teams Flight Information Expediter Relationship Specialty Start Date End Date Stanley Toledo MD [address] [place] [address] PCP - General 05/17/22 Ruby Vickers MD 125 [address] [facility] Medical Office Bldg, [address] [place] [address] Gear Generator Set Up Operator Electrophysiology 10/04/24 documented as of this encounter
--- OUTSIDE RECORDS SUMMARY | 2025-02-28 11:33 | XMS_ITS | Encounter Summary ---
Author Organization [facility] Address [address] [place] [address] Care Team Providers Care Debrander Name Role Phone Stanley Toledo MD Unavailable [phone] Stanley Toledo MD Primary Care Provider + [phone] Joi Zhang LPN Unavailable Encounter Details Date Type Department Care Team (Late st Contact Info) Description 10/12/2024 Abstract [facility] Family Medicine 112 [facility] 100 [place] [address] Stanley Toledo MD 112 [facility] 100 [place] [address] (Fax) Social History Tobacco Use Types Packs/Day [...] often do you attend chur ch or anabaptism services? Never 12/31/2023 Do you belong to any clubs o r organizations such as alevism groups, unions, fraternal or athletic groups, or [...] Recorded Patient Health Questionnaire-2 Score 0 05/13/2024 [facility] - Occupational [...] any time in the past 12 m [facility], were you homeless or living in a [...] [facility] 112 [facility] 100 [place] [address] Stanley Toledo MD 112 [facility] 100 [place] [address] (Fax) documented as of this encounter Visit Diagnoses Not on filedocumented in this encounter Additional Health Concerns Assessment Noted Time PHQ-9 Depression Total Score: 3 05/13/20 24 2:00 PM EST A fall risk assessment has been complete d for the patient 12/31/2023 8:54 AM EDT documented as of this encounter Care Teams Debrander Relationship Specialty Start Date End Date Stanley Toledo MD 112 [facility] 100 [place] [address] PCP - ACO Reach 10/17/22 Stanley Toledo MD [address] [place] [address] PCP - General Family Medicine 11/20/22 Joi Zhang LPN [address] [place] [address] 08/26/24 documented as of this encounter
--- OUTSIDE RECORDS SUMMARY | 2025-02-28 11:33 | XMS_ITS | Encounter Summary ---
Author Organization [facility] Address [address] [place] [address] Care Team Providers Care Wood Piler Name Role Phone Stanley Toledo MD Unavailable [phone] Stanley Toledo MD Primary Care Provider + [phone] Joi Zhang LPN Unavailable Encounter Details Date Type Department Care Team (Late st Contact Info) Description 11/03/2024 Abstract [facility] Family Medicine 112 [facility] 100 [place] [address] Stanley Toledo MD 112 [facility] 100 [place] [address] Social History Tobacco Use Types Packs/Day Years [...] any clubs o r organizations such as yazdanism groups, unions, fraternal or athletic groups, or [...] time in the past 12 m [facility], were you homeless or living in [...] Visit [facility] 112 [facility] 100 [place] [address] Stanley Toledo MD 112 [facility] 100 [place] [address] (Fax) documented as of this encounter Visit Diagnoses Not on filedocumented in this encounter Additional Health Concerns Assessment Noted Time PHQ-9 Depression Total Score: 3 05/13/20 24 2:00 PM EST A fall risk assessment has been complete d for the patient 12/31/2023 8:54 AM EDT documented as of this encounter Care Teams Wood Piler Relationship Specialty Start Date End Date Stanley Toledo MD 112 [facility] 100 [place] [address] PCP - ACO Reach 10/17/22 Stanley Toledo MD [address] [place] [address] PCP - General Family Medicine 11/20/22 Joi Zhang LPN [address] [place] [address] 08/26/24 documented as of this encounter
--- OUTSIDE RECORDS SUMMARY | 2025-02-28 11:33 | XMS_ITS | Encounter Summary ---
Author Organization [facility] Address [address] [place] [address] Phone Care Team Providers Care Physician Recruiter Name Role Phone Stanley Toledo MD Primary Care Provider Ruby Vickers MD Unavailable Encounter Details Date Type Department Care Team (Late st Contact Info) Description 01/23/2024 Scanned Document [facility] [address] [place] [phone] Scanning, Generic Provider Social History Tobacco Use [...] Visit [facility] 703 [facility] 250 [place] [address] Teo Stokes MD 703 [facility] 2, [address] [place] [address] documented as of this encounter Visit Diagnoses Not on filedocumented in this encounter Care Teams Physician Recruiter Relationship Specialty Start Date End Date Stanley Toledo MD [address] [place] [address] PCP - General 05/17/22 Ruby Vickers MD 125 [address] [facility], [facility] 305 [place] [address] Granite Setter Electrophysiology 10/04/24 documented as of this encounter
--- OUTSIDE RECORDS SUMMARY | 2025-02-28 11:33 | XMS_ITS | Encounter Summary ---
Author Organization [facility] Address [address] [place] [address] Phone Care Team Providers Care Customer Associate Name Role Phone Stanley Toledo MD Primary Care Provider Ruby Vickers MD Unavailable Encounter Details Date Type Department Care Team (Late st Contact Info) Description 03/04/2024 Scanned Document [facility] [address] [place] [phone] Scanning, Generic Provider Social History Tobacco Use [...] AM EST Office Visit [facility] [address] [facility] [address] [place] [address] Teo Stokes MD 703 [facility] 2, [address] [place] [address] documented as of this encounter [...] documented as of this encounter Care Teams Customer Associate Relationship Specialty Start Date End Date Stanley Toledo MD [address] [place] [address] PCP - General 05/17/22 Ruby Vickers MD [address] [facility] Medical Office Bldg, [address] [place] [address] Rugby League Footballer Electrophysiology 10/04/24 documented as of this encounter
--- OUTSIDE RECORDS SUMMARY | 2025-02-28 11:33 | XMS_ITS | Encounter Summary ---
Author Organization [facility] Address [address] [place] [address] Phone Care Team Providers Care Radiation Oncology Therapist Name Role Phone Stanley Toledo MD Primary Care Provider Ruby Vickers MD Unavailable Encounter Details Date Type Department Care Team (Late st Contact Info) Description 2023 Scanned Document [facility] [address] [place] [phone] Scanning, Generic Provider Social History Tobacco Use [...] Description 03/29/2025 11:00 AM EST Office Visit [facility] [address] [address] Teo Stokes MD 703 [facility] 2, [address] [place] [address] documented as of this encounter Procedures Procedure Name Priority Date/Time Associated Diagnosis Comments OUTSIDE LAB SCAN 2023 documented in this encounter Results * OUTSIDE LAB SCAN (2023) Narrative 2023 Ordered by an unspecified provider. us Generic Provider Scanning OUTSIDE SCAN Final Result documented in this encounter Visit Diagnoses Not on filedocumented in this encounter Care Teams Radiation Oncology Therapist Relationship Specialty Start Date End Date Stanley Toledo MD [address] [place] [address] PCP - General 05/17/22 Ruby Vickers MD [address] [facility] Medical Office Bldg, [address] [place] [address] Wool Puller Electrophysiology 10/04/24 documented as of this encounter
--- OUTSIDE RECORDS SUMMARY | 2025-02-28 11:33 | XMS_ITS | Encounter Summary ---
Author Organization [facility] Address [address] [place] [address] Phone Care Team Providers Care Beauty Parlor Cleaner Name Role Phone Stanley Toledo MD Primary Care Provider Ruby Vickers MD Unavailable Encounter Details Date Type Department Care Team (Late st Contact Info) Description 03/23/2024 Scanned Document [facility] [address] [place] [address] Scanning, Generic Provider Social History Tobacco Use [...] Office Visit [facility] 703 [facility] [address] [place] [address] Teo Stokes MD 703 [facility] 2, [address] [place] [address] documented as of this encounter [...] documented as of this encounter Care Teams Beauty Parlor Cleaner Relationship Specialty Start Date End Date Stanley Toledo MD [address] [place] [address] PCP - General 05/17/22 Ruby Vickers MD [address] [facility] Medical Office Bldg, [address] [place] [address] Academic Affairs Coordinator Electrophysiology 10/04/24 documented as of this encounter
--- OUTSIDE RECORDS SUMMARY | 2025-02-28 11:33 | XMS_ITS | Encounter Summary ---
Author Organization [facility] Address [address] [place] [address] Phone Care Team Providers Care Pilot Boat Captain Name Role Phone Stanley Toledo MD Primary Care Provider Ruby Vickers MD Unavailable Encounter Details Date Type Department Care Team (Late st Contact Info) Description 04/05/2024 Scanned Document [facility] [address] [place] [phone] Scanning, Generic Provider Social History Tobacco Use [...] EST Office Visit [facility] 703 [facility] 250 [place] [address] Teo Stokes MD 703 [facility] 2, [address] [place] [address] documented as of this encounter [...] as of this encounter Care Teams Pilot Boat Captain Relationship Specialty Start Date End Date Stanley Toledo MD [address] [place] [address] PCP - General 05/17/22 Ruby Vickers MD [address] [facility] Medical Office Bldg, [address] [place] [address] Hemmer Automatic Electrophysiology 10/04/24 documented as of this encounter
--- OUTSIDE RECORDS SUMMARY | 2025-02-28 11:33 | XMS_ITS | Encounter Summary ---
Author Organization [facility] Address [address] [place] [address] Phone Care Team Providers Care Commodity Analyst Name Role Phone Stanley Toledo MD Primary Care Provider Ruby Vickers MD Unavailable Encounter Details Date Type Department Care Team (Late st Contact Info) Description 04/01/2024 Scanned Document [facility] [address] [place] [phone] Scanning, Generic Provider Social History Tobacco Use [...] AM EST Office Visit [facility] 703 [facility] 250 [place] [address] Teo Stokes MD 703 [facility] 2, [address] [place] [address] documented as of this encounter Visit Diagnoses Not on filedocumented in this encounter Additional Health Concerns Assessment Noted Time A fall risk assessment has been complete d for the patient 02/10/2024 9:14 AM EDT documented as of this encounter Care Teams Commodity Analyst Relationship Specialty Start Date End Date Stanley Toledo MD [address] [place] [address] PCP - General 05/17/22 Ruby Vickers MD [address] [facility] Bldg, [address] [place] [address] Peeler Operator Electrophysiology 10/04/24 documented as of this encounter
--- OUTSIDE RECORDS SUMMARY | 2025-02-28 11:33 | XMS_ITS | Encounter Summary ---
Author Organization [facility] Address [address] [place] [address] Phone Care Team Providers Care Mail Rider Name Role Phone Stanley Toledo MD Primary Care Provider Ruby Vickers MD Unavailable Encounter Details Date Type Department Care Team (Late st Contact Info) Description 01/18/2024 Scanned Document [place] [address] [place] [phone] Scanning, Generic Provider Social History Tobacco Use [...] EST Office Visit [facility] 703 [facility] 250 [place] [address] Teo Stokes MD 703 [facility] 2, [address] [place] [address] documented as of this encounter Visit Diagnoses Not on filedocumented in this encounter Care Teams Mail Rider Relationship Specialty Start Date End Date Stanley Toledo MD [address] [place] [phone] PCP - General 05/17/22 Ruby Vickers MD 125 [address] [facility], [facility] 305 [place] [address] Cigar Making Supervisor Electrophysiology 10/04/24 documented as of this encounter
--- OUTSIDE RECORDS SUMMARY | 2025-02-28 11:33 | XMS_ITS | Encounter Summary ---
Author Organization [facility] Address [address] [place] [address] Care Team Providers Care Anodic Treater Name Role Phone Stanley Toledo MD Unavailable [phone] Stanley Toledo MD Primary Care Provider + [phone] Dora Santiago MILLED LUMBER GRADER Unavailable Christina Goddard MILLED LUMBER GRADER Unavailable Unavailable Joi Zhang MILLED LUMBER GRADER Unavailable Encounter Details Date Type Department Care Team (Late Contact Info) Description 10/22/2023 Abstract [facility] Family Medicine [address] [place] [address] Stanley Toledo MD [address] [address] (Fax) Social History Tobacco Use Types Packs/Day [...] Visit [facility] Family Medicine [address] [address] Stanley Toledo MD [address] [address] (Fax) documented as of this encounter Visit Diagnoses Not on filedocumented in this encounter Additional Health Concerns Assessment Noted Time PHQ-9 Depression Total Score: 3 05/12/20 23 1:00 PM EST documented as of this encounter Care Teams Anodic Treater Relationship Specialty Start Date End Date Stanley Toledo MD [address] [place] [address] (Fax) PCP - ACO Reach 10/17/22 Stanley Toledo MD [address] [place] [address] PCP - General Family Medicine 11/20/22 Dora Santiago LPN [address] [place] [address] Licensed Practical Nurse Family Medicine 12/22/23 Christina Goddard LPN Licensed Practical Nurse Family Medicine 12/25/23 Joi Zhang LPN [address] [place] [address] 08/26/24 documented as of this encounter
--- OUTSIDE RECORDS SUMMARY | 2025-02-28 11:33 | XMS_ITS | Encounter Summary ---
Author Organization [facility] Address [address] [place] [address] Care Team Providers Care Daylight Driller Name Role Phone Stanley Toledo MD Unavailable [phone] Stanley Toledo MD Primary Care Provider + [phone] Joi Zhang LPN Unavailable Encounter Details Date Type Department Care Team (Late st Contact Info) Description 11/24/2024 Abstract [facility] 100 Family Medicine 112 [facility] 100 [place] [address] Stanley Toledo MD 112 [facility] 100 [place] [address] Social History Tobacco Use Types Packs/Day Years [...] often do you attend chur ch or cheondoism services? Never 12/31/2023 Do you belong to any clubs o r organizations such as sabianist groups, unions, fraternal or athletic groups, or [...] Recorded Patient Health Questionnaire-2 Score 0 05/13/2024 [facility] - [...] any time in the past 12 m [facility], were you homeless or [...] Visit [facility] 112 [facility] 100 [place] [address] Stanley Toledo MD 112 [facility] 100 [place] [address] (Fax) documented as of this encounter Visit Diagnoses Not on filedocumented in this encounter Additional Health Concerns Assessment Noted Time PHQ-9 Depression Total Score: 3 05/13/20 24 2:00 PM EST A fall risk assessment has been complete d for the patient 12/31/2023 8:54 AM EDT documented as of this encounter Care Teams Daylight Driller Relationship Specialty Start Date End Date Stanley Toledo MD 112 [facility] 100 [place] [address] PCP - ACO Reach 10/17/22 Stanley Toledo MD [address] [place] [address] PCP - General Family Medicine 11/20/22 Joi Zhang LPN [address] [place] [address] 08/26/24 documented as of this encounter
--- OUTSIDE RECORDS SUMMARY | 2025-02-28 11:33 | XMS_ITS | Encounter Summary ---
Author Organization [facility] Address [address] [place] [address] Phone Care Team Providers Care Tonger Name Role Phone Stanley Toledo MD Primary Care Provider Ruby Vickers MD Unavailable Encounter Details Date Type Department Care Team (Late st Contact Info) Description 01/16/2024 Scanned Document [facility] [address] [place] [address] Scanning, Generic Provider Social History Tobacco Use [...] AM EST Office Visit [facility] [address] [address] Teo Stokes MD 703 [facility] 2, [address] [place] [address] documented as of this encounter Procedures Procedure Name Priority Date/Time Associated Diagnosis Comments ECHOCARDIOGRAM 01/16/2024 documented in this encounter Results * Echocardiogram (01/16/2024) Narrative 01/16/2024 Ordered by an unspecified provider. us Generic Provider Scanning CV ECHO PROCEDURES Fin al Result documented in this encounter Visit Diagnoses Not on filedocumented in this encounter Care Teams Tonger Relationship Specialty Start Date End Date Stanley Toledo MD [address] [place] [address] PCP - General 05/17/22 Ruby Vickers MD 125 [address] [facility] Medical Office Bldg, [address] [place] [address] Distributor Of Directories Electrophysiology 10/04/24 documented as of this encounter
--- OUTSIDE RECORDS SUMMARY | 2025-02-28 11:33 | XMS_ITS | Encounter Summary ---
Author Organization [facility] Address [address] [place] [address] Phone Care Team Providers Care Biometry Teacher Name Role Phone Stanley Toledo MD Primary Care Provider Ruby Vickers MD Unavailable Encounter Details Date Type Department Care Team (Late st Contact Info) Description 05/12/2024 Scanned Document [facility] [address] [place] [phone] Scanning, Generic Provider Social History Tobacco Use [...] Description 03/29/2025 11:00 AM EST Office Visit [facility] [address] [facility] 250 [place] [address] Teo Stokes MD 703 [facility] 2, [address] [place] [address] documented as of this encounter [...] documented as of this encounter Care Teams Biometry Teacher Relationship Specialty Start Date End Date Stanley Tloedo MD [address] [place] [address] PCP - General 05/17/22 Ruby Vickers MD 125 [address] [facility] Medical Office Bldg, [address] [place] [address] Director Education Electrophysiology 10/04/24 documented as of this encounter
--- OUTSIDE RECORDS SUMMARY | 2025-02-28 11:33 | XMS_ITS | Encounter Summary ---
Author Organization [facility] Address [address] [place] [address] Phone Care Team Providers Care Gas Adjuster Name Role Phone Stanley Toledo MD Primary Care Provider [phone] Ruby Vickers MD Unavailable Encounter Details Date Type Department Care Team (Late st Contact Info) Description 03/08/2024 Scanned Document [facility] [address] [place] [address] Scanning, Generic Provider Social History Tobacco Use [...] Description 03/29/2025 11:00 AM EST Office Visit [facility] 703 [facility] [address] [place] [address] Teo Stokes MD 703 [facility] 2, [address] [place] [address] documented as of this encounter [...] documented as of this encounter Care Teams Gas Adjuster Relationship Specialty Start Date End Date Stanley Toledo MD [address] [place] [address] PCP - General 05/17/22 Ruby Vickers MD 125 [address] [facility] Medical Office Bldg, [address] [place] [address] Seat Mender Electrophysiology 10/04/24 documented as of this encounter
--- OUTSIDE RECORDS SUMMARY | 2025-02-28 11:33 | XMS_ITS | Encounter Summary ---
Author Organization [facility] Address [address] [place] [address] Phone Care Team Providers Care Harvesting Manager Name Role Phone Stanley Toledo MD Primary Care Provider Ruby Vickers MD Unavailable Encounter Details Date Type Department Care Team (Late st Contact Info) Description 02/11/2024 Scanned Document [facility] [address] [place] [address] Scanning, Generic Provider Social History [...] Description 03/29/2025 11:00 AM EST Office Visit [facility] 703 [facility] [address] [place] [address] Teo Stokes MD [address] [facility] [address], [address] [place] [address] documented as of this encounter [...] documented as of this encounter Care Teams Harvesting Manager Relationship Specialty Start Date End Date Stanley Toledo MD [address] [place] [address] PCP - General 05/17/22 Ruby Vickers MD 125 [address] [facility] Medical Office Bldg, [address] [place] [address] Customs Director Electrophysiology 10/04/24 documented as of this encounter
--- OUTSIDE RECORDS SUMMARY | 2025-02-28 11:33 | XMS_ITS | Encounter Summary ---
Author Organization [facility] Address [address] [place] [address] Care Team Providers Care Butcher Helper Name Role Phone Stanley Toledo MD Unavailable [phone] Stanley Toledo MD Primary Care Provider + [phone] Dora Santiago CURER ACID DRUM Unavailable Christina Goddard CURER ACID DRUM Unavailable Unavailable ZhangJoi CURER ACID DRUM Unavailable Encounter Details Date Type Department Care Team (Late st Contact Info) Description 09/30/2023 Orders Only [facility] Family Medicine [address] [place] [address] Vicki, [place], [place] Social History Tobacco Use Types Packs/Day Years [...] Medicine [address] [facility] 100 [place] [address] Stanley Toledo MD 112 [facility] 100 [place] [address] (Fax) documented as of this encounter Visit Diagnoses Not on filedocumented in this encounter Additional Health Concerns Assessment Noted Time PHQ-9 Depression Total Score: 3 05/12/20 23 1:00 PM EST documented as of this encounter Care Teams Butcher Helper Relationship Specialty Start Date End Date Stanley Toledo MD [address] [place] [address] PCP - ACO Reach 10/17/22 Stanley Toledo MD [address] [place] [address] PCP - General Family Medicine 11/20/22 Dora Santiago LPN [address] [place] [address] Licensed Practical Nurse Family Medicine 12/22/23 Christina Goddard LPN Licensed Practical Nurse Family Medicine 12/25/23 Joi Zhang LPN [address] [place] [address] 08/26/24 documented as of this encounter
--- OUTSIDE RECORDS SUMMARY | 2025-02-28 11:33 | XMS_ITS | Encounter Summary ---
Author Organization [facility] Address [address] [place] [address] Care Team Providers Care Steward/Stewardess Wine Name Role Phone Stanley Toledo MD Unavailable [phone] Stanley Toledo MD Primary Care Provider + [phone] Joi Zhang LPN Unavailable Encounter Details Date Type Department Care Team (Late st Contact Info) Description 10/06/2024 Abstract [facility] Family Medicine 112 [facility] 100 [place] [address] Stanley Toledo MD 112 [facility] 100 [place] [address] (Fax) Social History Tobacco Use Types Packs/Day [...] often do you attend chur ch or taoism services? Never 12/31/2023 Do you belong to any clubs o r organizations such as druze groups, unions, fraternal or athletic groups, or [...] Recorded Patient Health Questionnaire-2 Score 0 05/13/2024 [facility] Occupat ional Health [...] any time in the past 12 m [facility], were you homeless or living in a [...] [facility] 112 [facility] 100 [place] [address] Stanley Toledo MD 112 [facility] 100 [place] [address] (Fax) documented as of this encounter Visit Diagnoses Not on filedocumented in this encounter Additional Health Concerns Assessment Noted Time PHQ-9 Depression Total Score: 3 05/13/20 24 2:00 PM EST A fall risk assessment has been complete d for the patient 12/31/2023 8:54 AM EDT documented as of this encounter Care Teams Steward/Stewardess Wine Relationship Specialty Start Date End Date Stanley Toledo MD 112 [facility] 100 [place] [address] PCP - ACO Reach 10/17/22 Stanley Toledo MD [address] [place] [address] PCP - General Family Medicine 11/20/22 Joi Zhang LPN [address] [place] [address] 08/26/24 documented as of this encounter
--- OUTSIDE RECORDS SUMMARY | 2025-02-28 11:33 | XMS_ITS | Encounter Summary ---
Author Organization [facility] Address [address] [place] [address] Phone Care Team Providers Care Edge Inker Uppers Name Role Phone Stanley Toledo MD Primary Care Provider Ruby Vickers MD Unavailable Encounter Details Date Type Department Care Team (Late st Contact Info) Description 01/17/2024 Scanned Document [facility] [address] [place] [address] Scanning, Generic Provider Social History Tobacco Use [...] Description 03/29/2025 11:00 AM EST Office Visit [facility] [address] [address] Teo Stokes MD 703 [facility] 2, [address] [place] [address] documented as of this encounter Procedures Procedure Name Priority Date/Time Associated Diagnosis Comments OUTSIDE IMAGING SCAN 01/17/2024 documented in this encounter Results * OUTSIDE IMAGING SCAN (01/17/2024) Anatomical Region Laterality Modality Other Narrative 01/17/2024 Ordered by an unspecified provider. us Generic Provider Scanning OUTSIDE SCAN Final Result documented in this encounter Visit Diagnoses Not on filedocumented in this encounter Care Teams Edge Inker Uppers Relationship Specialty Start Date End Date Stanley Toledo MD [address] [place] [address] PCP - General 05/17/22 Ruby Vickers MD 125 [address] [facility] Medical Office Bldg, [address] [place] [address] Screener And Blender Operator Electrophysiology 10/04/24 documented as of this encounter
--- OUTSIDE RECORDS SUMMARY | 2025-02-28 11:33 | XMS_ITS | Encounter Summary ---
Author Organization [facility] Address [address] [place] [address] Care Team Providers Care Materials And Processes Manager Name Role Phone Stanley Toledo MD Unavailable [phone] Stanley Toledo MD Primary Care Provider + [phone] Dora Santiago SAMPLE HAND Unavailable Christina Goddard SAMPLE HAND Unavailable Unavailable Jio Zhang SAMPLE HAND Unavailable Encounter Details Date Type Department Care Team (Late Contact Info) Description 10/22/2023 Abstract [facility] 521 Family Medicine [address] [place] [address] Stanley Toledo MD [address] [address] (Fax) Social History Tobacco Use Types Packs/Day [...] Visit [facility] 100 Family Medicine [address] [address] Stanley Toledo MD [address] [address] (Fax) documented as of this encounter Visit Diagnoses Not on filedocumented in this encounter Additional Health Concerns Assessment Noted Time PHQ-9 Depression Total Score: 3 05/12/20 23 1:00 PM EST documented as of this encounter Care Teams Materials And Processes Manager Relationship Specialty Start Date End Date Stanley Toledo MD [address] [place] [address] (Fax) PCP - ACO Reach 10/17/22 Stanley Toledo MD [address] [place] [address] PCP - General Family Medicine 11/20/22 Dora Santiago LPN [address] [place] [address] Licensed Practical Nurse Family Medicine 12/22/23 Christina Goddard LPN Licensed Practical Nurse Family Medicine 12/25/23 Joi Zhang LPN [address] [place] [address] 08/26/24 documented as of this encounter
--- OUTSIDE RECORDS SUMMARY | 2025-02-28 11:33 | XMS_ITS | Encounter Summary ---
Author Organization [facility] Address [address] [place] [address] Phone Care Team Providers Care Green Building Materials Designer Name Role Phone Stanley Toledo MD Primary Care Provider Ruby Vickers MD Unavailable Encounter Details Date Type Department Care Team (Late st Contact Info) Description 04/20/2024 Scanned Document [facility] [address] Virtual [place] [id number] Scanning, Generic Provider Social History Tobacco Use [...] EST Office Visit [facility] 703 [facility] 250 [place] [address] Teo Stokes MD 703 [facility] 2, [address] [place] [address] documented as of this encounter [...] documented as of this encounter Care Teams Green Building Materials Designer Relationship Specialty Start Date End Date Stanley Toledo MD [address] [place] [address] PCP - General 05/17/22 Ruby Vickers MD 125 [address] [facility] Medical Office Bldg, [address] [place] [address] Behavioral Analyst Electrophysiology 10/04/24 documented as of this encounter
--- OUTSIDE RECORDS SUMMARY | 2025-02-28 11:33 | XMS_ITS | Encounter Summary ---
Author Organization [facility] Address [address] [place] [address] Care Team Providers Care Right Of Way Clearer Name Role Phone Stanley Toledo MD Unavailable [phone] Stanley Toledo MD Primary Care Provider + [phone] Joi Zhang LPN Unavailable Encounter Details Date Type Department Care Team (Late st Contact Info) Description 11/03/2024 Abstract [facility] Medicine 112 [facility] 100 [place] [address] Stanley Toledo MD 112 [facility] 100 [place] [address] Social History Tobacco Use Types Packs/Day Years [...] Visit [facility] 112 [facility] 100 [place] [address] Stanley Toledo MD 112 [facility] 100 [place] [address] (Fax) documented as of this encounter Visit Diagnoses Not on filedocumented in this encounter Additional Health Concerns Assessment Noted Time PHQ-9 Depression Total Score: 3 05/13/20 24 2:00 PM EST A fall risk assessment has been complete d for the patient 12/31/2023 8:54 AM EDT documented as of this encounter Care Teams Right Of Way Clearer Relationship Specialty Start Date End Date Stanley Toledo MD 112 [facility] 100 [place] [address] PCP - ACO Reach 10/17/22 Stanley Toledo MD [address] [place] [address] PCP - General Family Medicine 11/20/22 Joi Zhang LPN [address] [place] [address] 08/26/24 documented as of this encounter
--- OUTSIDE RECORDS SUMMARY | 2025-02-28 11:33 | XMS_ITS | Encounter Summary ---
Author Organization [facility] Address [address] [place] [address] Phone Care Team Providers Care Tube Puller Name Role Phone Stanley Toledo MD Primary Care Provider Ruby Vickers MD Unavailable Encounter Details Date Type Department Care Team (Late st Contact Info) Description 05/27/2024 Scanned Document [facility] [address] [place] [address] Scanning, Generic Provider Social History [...] 03/29/2025 11:00 AM EST Office Visit [facility] 703 [facility] 250 [place] [address] Teo Stokes MD 703 [facility] 2, [address] [place] [address] documented as of this encounter [...] documented as of this encounter Care Teams Tube Puller Relationship Specialty Start Date End Date Stanley Toledo MD [address] [place] [address] PCP - General 05/17/22 Ruby Vickers MD 125 [address] [facility] Medical Office Bldg, [address] [place] [address] Skein Bleacher Electrophysiology 10/04/24 documented as of this encounter
--- OUTSIDE RECORDS SUMMARY | 2025-02-28 11:33 | XMS_ITS | Encounter Summary ---
Author Organization [facility] Address [address] [place] [address] Phone Care Team Providers Care Ballistics Expert Name Role Phone Stanley Toledo MD Primary Care Provider [phone] Ruby Vickers MD Unavailable Encounter Details Date Type Department Care Team (Late st Contact Info) Description 05/22/2022 Orders Only [facility] [address] [place] [address] Conversion, Onbase Social History Tobacco Use Types [...] Description 03/29/2025 11:00 AM EST Office Visit [facility] 703 [facility] 250 [place] [address] Teo Stokes MD 703 [facility] 2, [address] [place], [place] [phone] Scheduled Orders Name Type Priority Associated Diagnoses Orde r Schedule OUTSIDE LAB SCAN Lab Ordered: 05/22/2022 documented as of this encounter Visit Diagnoses Not on filedocumented in this encounter Care Teams Ballistics Expert Relationship Specialty Start Date End Date Stanley Toledo MD [address] [place] [address] PCP - General 05/17/22 Ruby Vickers MD 125 [address] [facility] [address], [address] [place] [id number] Meter Installer Electrophysiology 10/04/24 documented as of this encounter
--- OUTSIDE RECORDS SUMMARY | 2025-02-28 11:33 | XMS_ITS | Encounter Summary ---
Author Organization [facility] Address [address] [place] [address] Phone Care Team Providers Care Rubber Tubing Backer Name Role Phone Stanley Toledo MD Primary Care Provider [phone] Ruby Vickers MD Unavailable Encounter Details Date Type Department Care Team (Late st Contact Info) Description 07/28/2024 Scanned Document [facility] [address] [place] [address] Scanning, Generic Provider Social History Tobacco Use [...] AM EST documented as of this encounter Functional Status * BP Answer Date of Assessment Author 98/60 07/29/2024 11:13 AM Andrea Palacios MA * Pulse Answer Date of Assessment Author 67 07/29/2024 11:13 AM Andrea Palacios MA * Communicable Disease Screening Question Answer Date of Assessment Author Do you have any of the following new or worsening symptoms? None of these 07/29/2024 10:41 AM EST Shira Smith M A documented as of this encounter Plan of Treatment Upcoming Encounters Date Type Department Care Team (Late st Contact Info) Description 03/29/2025 11:00 AM EST Office Visit [facility] 703 [facility] [address] [place] [address] Teo Stokes MD 703 [facility], [address] [place], [place] [phone] documented as of this encounter Procedures Procedure [...] as of this encounter Care Teams Rubber Tubing Backer Relationship Specialty Start Date End Date Stanley Toledo MD [address] [place] [address] PCP - General 05/17/22 Ruby Vickers MD 125 [address] [facility] Medical Office dg, [address] [place] [address] Manipulative Therapy Specialist Electrophysiology 10/04/24 documented as of this encounter
--- OUTSIDE RECORDS SUMMARY | 2025-02-28 11:33 | XMS_ITS | Encounter Summary ---
Author Organization [facility] Address [address] [place] [address] Care Team Providers Care Manager Location Name Role Phone Stanley Toledo MD Unavailable [phone] Stanley Toledo MD Primary Care Provider + [phone] Dora Santiago NURSERY SCHOOL TEACHER Unavailable Christina Goddard NURSERY SCHOOL TEACHER Unavailable Unavailable Joi Zhang NURSERY SCHOOL TEACHER Unavailable Encounter Details Date Type Department Care Team (Late Contact Info) Description 09/09/2023 Abstract [facility] Family Medicine [address] [place] [address] Stanley Toledo MD [address] [address] (Fax) Social History Tobacco Use Types Packs/Day [...] Visit [facility] Family Medicine [address] [address] Stanley Toledo MD [address] [address] (Fax) documented as of this encounter Visit Diagnoses Not on filedocumented in this encounter Additional Health Concerns Assessment Noted Time PHQ-9 Depression Total Score: 3 05/12/20 23 1:00 PM EST documented as of this encounter Care Teams Manager Location Relationship Specialty Start Date End Date Stanley Toledo MD [address] [place] [address] (Fax) PCP - ACO Reach 10/17/22 Stanley Toledo MD [address] [place] [address] PCP - General Family Medicine 11/20/22 Dora Santiago LPN [address] [place] [address] Licensed Practical Nurse Family Medicine 12/22/23 Christina Goddard LPN Licensed Practical Nurse Family Medicine 12/25/23 Joi Zhang LPN [address] [place] [address] 08/26/24 documented as of this encounter
--- OUTSIDE RECORDS SUMMARY | 2025-02-28 11:33 | XMS_ITS | Encounter Summary ---
Author Organization [facility] Address [address] [place] [address] Phone Care Team Providers Care Chief Petroleum Engineer Name Role Phone Stanley Toledo MD Primary Care Provider Ruby Vickers MD Unavailable Encounter Details Date Type Department Care Team (Late st Contact Info) Description 07/21/2024 Scanned Document [facility] [address] [place] [phone] Scanning, Generic Provider Social History Tobacco Use [...] Description 03/29/2025 11:00 AM EST Office Visit [facility] 703 [facility] 250 [place] [address] Teo Stokes MD 703 [facility] 2, [address] [place] [address] documented as of this encounter [...] documented as of this encounter Care Teams Chief Petroleum Engineer Relationship Specialty Start Date End Date Stanley Toledo MD [address] [place] [address] PCP - General 05/17/22 Ruby Vickers MD 125 E [facility] Medical Office Bldg, [address] [place] [address] Fundraising Director Electrophysiology 10/04/24 documented as of this encounter
--- OUTSIDE RECORDS SUMMARY | 2025-02-28 11:33 | XMS_ITS | Encounter Summary ---
Author Organization [facility] Address [address] [place] [address] Phone Care Team Providers Care Creative Writing English Professor Name Role Phone Stanley Toledo MD Primary Care Provider Ruby Vickers MD Unavailable Encounter Details Date Type Department Care Team (Late st Contact Info) Description 04/14/2024 Scanned Document [facility] [address] [place] [address] Scanning, Generic Provider Social History Tobacco Use [...] EST Office Visit [facility] 703 [facility] 250 [place] [address] Teo Stokes MD 703 [facility] 2, [address] [place] [address] documented as of this encounter [...] documented as of this encounter Care Teams Creative Writing English Professor Relationship Specialty Start Date End Date Stanley Toledo MD [address] [place] [address] PCP - General 05/17/22 Ruby Vickers MD 125 E [facility] Medical Office Bldg, [address] [place] [address] Service Administrator Electrophysiology 10/04/24 documented as of this encounter
--- OUTSIDE RECORDS SUMMARY | 2025-02-28 11:33 | XMS_ITS | Encounter Summary ---
Author Organization [facility] Address [address] [place] [address] Phone Care Team Providers Care Fruit Buying Grader Name Role Phone Stanley Toledo MD Primary Care Provider Ruby Vickers MD Unavailable Encounter Details Date Type Department Care Team (Late Contact Info) Description 05/20/2024 Scanned Document [facility] [address] [place] [address] Scanning, Generic Provider Social History Tobacco Use [...] * BP Answer Date of Assessment Author 106/70 05/21/2024 9:47 AM Andrea Palacios MA * Pulse Answer Date of Assessment Author 80 05/21/2024 9:47 AM Jossy Palacios MA * Communicable Disease Screening Question Answer Date of Assessment Author Do you have any of the following new or worsening symptoms? None of these 05/21/2024 9:39 AM EST Almita Flores documented as of this encounter Plan of Treatment Upcoming Encounters Date Type Department Care Team (Late st Contact Info) Description 03/29/2025 11:00 AM EST Office Visit [facility] 703 [facility] [address] [place] [address] Teo Stokes MD 703 [facility], [address] [place], [place] [address] documented as of this encounter Procedures Procedure [...] documented as of this encounter Care Teams Fruit Buying Grader Relationship Specialty Start Date End Date Stanley Toledo MD [address] [place] [address] PCP - General 05/17/22 Ruby Vickers MD 125 E [facility] Medical Office dg, [address] [place] [address] Motel Manager Electrophysiology 10/04/24 documented as of this encounter
--- OUTSIDE RECORDS SUMMARY | 2025-02-28 11:33 | XMS_ITS | Encounter Summary ---
Author Organization [facility] Address [address] [place] [address] Phone Care Team Providers Care Research And Development Chemist Name Role Phone Stanley Toledo MD Primary Care Provider [phone] Ruby Vickers MD Unavailable Encounter Details Date Type Department Care Team (Late st Contact Info) Description 01/19/2024 Scanned Document [facility] [address] [place] [address] Scanning, Generic Provider Social History Tobacco Use [...] Description 03/29/2025 11:00 AM EST Office Visit [facility] 703 [facility] 250 [place] [address] Teo Stokes MD 703 [facility] 2, [address] [place] [address] documented as of this encounter Visit Diagnoses Not on filedocumented in this encounter Care Teams Research And Development Chemist Relationship Specialty Start Date End Date Stanley Toledo MD [address] [place] [address] PCP - General 05/17/22 Ruby Vickers MD 125 E [facility] [address] [place] [address] Bullet Charging Machine Operator Electrophysiology 10/04/24 documented as of this encounter
--- OUTSIDE RECORDS SUMMARY | 2025-02-28 11:33 | XMS_ITS | Encounter Summary ---
Author Organization [facility] Address [address] [place] [address] Phone Care Team Providers Care Developer Prover Upholstering Name Role Phone Stanley Toledo MD Primary Care Provider Ruby Vickers MD Unavailable Encounter Details Date Type Department Care Team (Late st Contact Info) Description 08/02/2024 Scanned Document [facility] [address] [place] [address] Scanning, Generic Provider Social History Tobacco Use [...] AM EST Office Visit [facility] 703 [facility] 250 [place] [address] Teo Stokes MD 703 [facility] 2, [address] [place] [address] documented as of this encounter Visit Diagnoses Not on filedocumented in this encounter Additional Health Concerns Assessment Noted Time A fall risk assessment has been complete d for the patient 02/10/2024 9:14 AM EDT documented as of this encounter Care Teams Developer Prover Upholstering Relationship Specialty Start Date End Date Stanley Toledo MD [address] [place] [address] PCP - General 05/17/22 Ruby Vickers MD 125 E [facility] Medical Office Bldg, [address] [place] [address] Air Compressor Operator Electrophysiology 10/04/24 documented as of this encounter
--- OUTSIDE RECORDS SUMMARY | 2025-02-28 11:33 | XMS_ITS | Encounter Summary ---
Author Organization [facility] Address [address] [place] [address] Care Team Providers Care Charger Operator Helper Name Role Phone Stanley Toledo MD Unavailable [phone] Stanley Toledo MD Primary Care Provider + [phone] Joi Zhang LPN Unavailable Encounter Details Date Type Department Care Team (Late st Contact Info) Description 11/01/2024 Abstract [facility] [address] [facility] 100 [place] [address] Stanley Toledo MD 112 [facility] 100 [place] [address] (Fax) Social History Tobacco Use Types Packs/Day [...] Recorded Patient Health Questionnaire-2 Score 0 05/13/2024 [facility] - Occupational [...] any time in the past 12 m [facility], were you homeless or living [...] Visit [facility] [address] [facility] 100 [place] [address] Stanley Toledo MD 112 [facility] 100 [place] [address] (Fax) documented as of this encounter Visit Diagnoses Not on filedocumented in this encounter Additional Health Concerns Assessment Noted Time PHQ-9 Depression Total Score: 3 05/13/20 24 2:00 PM EST A fall risk assessment has been complete d for the patient 12/31/2023 8:54 AM EDT documented as of this encounter Care Teams Charger Operator Helper Relationship Specialty Start Date End Date Stanley Toledo MD 112 [facility] 100 [place] [address] PCP - ACO Reach 10/17/22 Stanley Toledo MD [address] [place] [address] PCP - General Family Medicine 11/20/22 Joi Zhang LPN [address] [place] [address] 08/26/24 documented as of this encounter
--- OUTSIDE RECORDS SUMMARY | 2025-02-28 11:33 | XMS_ITS | Encounter Summary ---
Author Organization [facility] Address [address] [place] [address] Care Team Providers Care Restorer Lace And Textiles Name Role Phone Stanley Toledo MD Unavailable [phone] Stanley Toledo MD Primary Care Provider + [phone] Joi Zhang LPN Unavailable Encounter Details Date Type Department Care Team (Late st Contact Info) Description 09/21/2024 Abstract [facility] Family Medicine 112 [facility] 100 [place] [address] Stanley Toledo MD 112 [facility] 100 [place] [address] (Fax) Social History Tobacco Use Types Packs/Day [...] often do you attend chur ch or christianity services? Never 12/31/2023 Do you [...] any time in the past 12 m [facility], were you homeless or living in [...] Visit [facility] 112 [facility] 100 [place] [address] Stanley Toledo MD 112 [facility] 100 [place] [address] (Fax) documented as of this encounter Visit Diagnoses Not on filedocumented in this encounter Additional Health Concerns Assessment Noted Time PHQ-9 Depression Total Score: 3 05/13/20 24 2:00 PM EST A fall risk assessment has been complete d for the patient 12/31/2023 8:54 AM EDT documented as of this encounter Care Teams Restorer Lace And Textiles Relationship Specialty Start Date End Date Stanley Toledo MD 112 [facility] 100 [place] [address] PCP - ACO Reach 10/17/22 Stanley Toledo MD [address] [place] [address] PCP - General Family Medicine 11/20/22 Joi Zhang LPN [address] [place] [address] 08/26/24 documented as of this encounter
--- OUTSIDE RECORDS SUMMARY | 2025-02-28 11:33 | XMS_ITS | Encounter Summary ---
Author Organization [facility] Address [address] [place] [address] Care Team Providers Care Adult High School Instructor Name Role Phone Stanley Toledo MD Unavailable [phone] Stanley Toledo MD Primary Care Provider + [phone] Joi Zhang LPN Unavailable Encounter Details Date Type Department Care Team (Late st Contact Info) Description 09/21/2024 Abstract [facility] 100 Family Medicine 112 [facility] 100 [place] [address] Stanley Toledo MD 112 [facility] 100 [place] [address] (Fax) Social History Tobacco Use Types Packs/Day [...] any clubs o r organizations such as quaker groups, unions, fraternal or athletic groups, or [...] were you homeless or living in a longterm (including now)? No 12/31/2023 Sex and Gender [...] Visit [facility] 112 [facility] 100 [place] [address] Stanley Toledo MD 112 [facility] 100 [place] [address] (Fax) documented as of this encounter Visit Diagnoses Not on filedocumented in this encounter Additional Health Concerns Assessment Noted Time PHQ-9 Depression Total Score: 3 05/13/20 24 2:00 PM EST A fall risk assessment has been complete d for the patient 12/31/2023 8:54 AM EDT documented as of this encounter Care Teams Adult High School Instructor Relationship Specialty Start Date End Date Stanley Toledo MD 112 [facility] 100 [place] [address] PCP - ACO Reach 10/17/22 Stanley Toledo MD [address] [place] [address] PCP - General Family Medicine 11/20/22 Joi Zhang LPN [address] [place] [address] 08/26/24 documented as of this encounter
--- OUTSIDE RECORDS SUMMARY | 2025-02-28 11:33 | XMS_ITS | Encounter Summary ---
Author Organization [facility] Address [address] [place] [address] Care Team Providers Care Disaster Recovery Manager Name Role Phone Stanley Toledo MD Unavailable [phone] Stanley Toledo MD Primary Care Provider + [phone] Joi Zhang LPN Unavailable Encounter Details Date Type Department Care Team (Late st Contact Info) Description 2024 Abstract [facility] Family Medicine 112 [facility] 100 [place] [address] Stanley Toledo MD 112 [facility] 100 [place] [address] (Fax) Social History Tobacco Use Types Packs/Day [...] any time in the past 12 m [facility], were you homeless or living [...] [facility] 112 [facility] 100 [place] [address] Stanlye Toledo MD 112 [facility] 100 [place] [address] (Fax) documented as of this encounter Visit Diagnoses Not on filedocumented in this encounter Additional Health Concerns Assessment Noted Time PHQ-9 Depression Total Score: 3 05/13/20 24 2:00 PM EST A fall risk assessment has been complete d for the patient 12/31/2023 8:54 AM EDT documented as of this encounter Care Teams Disaster Recovery Manager Relationship Specialty Start Date End Date Stanley Toledo MD 112 [facility] 100 [place] [address] PCP - ACO Reach 10/17/22 Stanley Toledo MD [address] [place] [address] PCP - General Family Medicine 11/20/22 Joi Zhang LPN [address] [place] [address] 08/26/24 documented as of this encounter
--- OUTSIDE RECORDS SUMMARY | 2025-02-28 11:33 | XMS_ITS | Encounter Summary ---
Author Organization [facility] Address [address] [place] [address] Care Team Providers Care Top Inventory Control Executive Name Role Phone Stanley Toledo MD Unavailable [phone] Stanley Toledo MD Primary Care Provider + [phone] Dora Santiago TEST ENGINEERING INTERN Unavailable Rupesh Christina TEST ENGINEERING INTERN Unavailable Unavailable Joi Zhang TEST ENGINEERING INTERN Unavailable Encounter Details Date Type Department Care Team (Late Contact Info) Description 09/19/2023 Abstract [facility] Family Medicine [address] [place] [address] Margarito Valentine MD [address] [place] [address] Social History Tobacco Use Types Packs/Day Years [...] Visit [facility] Family Medicine [address] [address] Stanley Toledo MD 112 [facility] 100 [place] [address] (Fax) documented as of this encounter Visit Diagnoses Not on filedocumented in this encounter Additional Health Concerns Assessment Noted Time PHQ-9 Depression Total Score: 3 05/12/20 23 1:00 PM EST documented as of this encounter Care Teams Top Inventory Control Executive Relationship Specialty Start Date End Date Stanley Toledo MD [address] [place] [address] (Fax) PCP - ACO Reach 10/17/22 Stanley Toledo MD [address] [place] [address] PCP - General Family Medicine 11/20/22 Dora Santiago LPN [address] [place] [address] Licensed Practical Nurse Family Medicine 12/22/23 Christina Goddard LPN Licensed Practical Nurse Family Medicine 12/25/23 Joi Zhang LPN [address] [place] [address] 08/26/24 documented as of this encounter
--- OUTSIDE RECORDS SUMMARY | 2025-02-28 11:33 | XMS_ITS | Encounter Summary ---
Author Organization [facility] Address [address] [place] [address] Care Team Providers Care Cartoon Animator Name Role Phone Stanley Toledo MD Unavailable [phone] Stanley Toledo MD Primary Care Provider + [phone] Joi Zhang LPN Unavailable Encounter Details Date Type Department Care Team (Late st Contact Info) Description 10/27/2024 Abstract [facility] Family [facility] 112 [facility] 100 [place] [address] Stanley Toledo MD 112 [facility] 100 [place] [address] (Fax) Social History Tobacco Use Types Packs/Day [...] Recorded Patient Health Questionnaire-2 Score 0 05/13/2024 [facility] of Occupat ional Health - Occupational Stress [...] Medicine 112 [facility] 100 [place] [address] Stanley Toledo MD 112 [facility] 100 [place] [address] (Fax) documented as of this encounter Visit Diagnoses Not on filedocumented in this encounter Additional Health Concerns Assessment Noted Time PHQ-9 Depression Total Score: 3 05/13/20 24 2:00 PM EST A fall risk assessment has been complete d for the patient 12/31/2023 8:54 AM EDT documented as of this encounter Care Teams Cartoon Animator Relationship Specialty Start Date End Date Stanley Toledo MD 112 [facility] 100 [place] [address] PCP - ACO Reach 10/17/22 Stanley Toledo MD [address] [place] [address] PCP - General Family Medicine 11/20/22 Joi Zhang LPN [address] [place] [address] 08/26/24 documented as of this encounter
--- OUTSIDE RECORDS SUMMARY | 2025-02-28 11:33 | XMS_ITS | Encounter Summary ---
Author Organization [facility] Address [address] [place] [address] Care Team Providers Care Flour Mixer Name Role Phone Stanley Toledo MD Unavailable [phone] Stanley Toledo MD Primary Care Provider + [phone] Joi Zhang LPN Unavailable Encounter Details Date Type Department Care Team (Late st Contact Info) Description 11/22/2024 Abstract [facility] Family Medicine 112 [facility] 100 [place] [address] Stanley Toledo MD 112 [facility] 100 [place] [address] Social History Tobacco Use Types Packs/Day Years [...] Recorded Patient Health Questionnaire-2 Score 0 05/13/2024 [facility] of Occupat ional Health - Occupational Stress [...] [facility] 112 [facility] 100 [place] [address] Stanley Toledo MD 112 [facility] 100 [place] [address] (Fax) documented as of this encounter Visit Diagnoses Not on filedocumented in this encounter Additional Health Concerns Assessment Noted Time PHQ-9 Depression Total Score: 3 05/13/20 24 2:00 PM EST A fall risk assessment has been complete d for the patient 12/31/2023 8:54 AM EDT documented as of this encounter Care Teams Flour Mixer Relationship Specialty Start Date End Date Stanley Toledo MD 112 [facility] 100 [place] [address] PCP - ACO Reach 10/17/22 Stanley Toledo MD [address] [place] [address] PCP - General Family Medicine 11/20/22 Joi Zhang LPN [address] [place] [address] 08/26/24 documented as of this encounter
--- OUTSIDE RECORDS SUMMARY | 2025-02-28 11:34 | XMS_ITS | Encounter Summary ---
Author Organization [facility] Address [address] [place] [address] Phone Care Team Providers Care House Cleaner Name Role Phone Stanley Toledo MD Primary Care Provider Ruby Vickers MD Unavailable Encounter Details Date Type Department Care Team (Late st Contact Info) Description 07/13/2024 Scanned Document [facility] [address] [place] [id number] Scanning, Generic Provider Social History Tobacco Use [...] EST Office Visit [facility] 703 [facility] 250 [place] [phone] Teo Stokes MD 703 [facility] 2, [address] [place] [address] documented as of this encounter [...] documented as of this encounter Care Teams House Cleaner Relationship Specialty Start Date End Date Stanley Toledo MD [address] [place] [address] PCP - General 05/17/22 Ruby Vickers MD [address] [facility] Medical Office Bldg, [address] [place] [address] Welding Technician Electrophysiology 10/04/24 documented as of this encounter
--- OUTSIDE RECORDS SUMMARY | 2025-02-28 11:34 | XMS_ITS | Encounter Summary ---
Author Organization [facility] Address [address] [place] [address] Phone Care Team Providers Care Manufacturing Lead Name Role Phone Stanley Toledo MD Primary Care Provider Ruby Vickers MD Unavailable Encounter Details Date Type Department Care Team (Late st Contact Info) Description 06/29/2024 Scanned Document [facility] [address] [place] [id number] Scanning, Generic Provider Social History Tobacco Use [...] EST Office Visit [facility] 703 [facility] 250 [place] [address] Teo tSokes MD 703 [facility] 2, [address] [place] [address] documented as of this encounter [...] documented as of this encounter Care Teams Manufacturing Lead Relationship Specialty Start Date End Date Stanley Toledo MD [address] [place] [address] PCP - General 05/17/22 Ruby Vickers MD [address] [facility] Medical Office Bldg, [address] [place] [address] Horticulture Worker Electrophysiology 10/04/24 documented as of this encounter
--- OUTSIDE RECORDS SUMMARY | 2025-02-28 11:34 | XMS_ITS | Encounter Summary ---
Author Organization [facility] Address [address] [place] [address] Phone Care Team Providers Care Respiratory Care Instructor Name Role Phone Stanley Toledo MD Primary Care Provider Ruby Vickers MD Unavailable Encounter Details Date Type Department Care Team (Late st Contact Info) Description 07/02/2024 Scanned Document [facility] [address] [place] [phone] Scanning, Generic Provider Social History Tobacco Use [...] EST Office Visit [facility] [address] [facility] 250 [place] [address] Teo Stokes MD 703 [facility] 2, [address] [place] [address] documented as of this encounter [...] documented as of this encounter Care Teams Respiratory Care Instructor Relationship Specialty Start Date End Date Stanley Toledo MD [address] [place] [address] PCP - General 05/17/22 Ruby Vickers MD [address] [facility] Medical Office Bldg, [address] [place] [address] Bowling Teacher Electrophysiology 10/04/24 documented as of this encounter
--- OUTSIDE RECORDS SUMMARY | 2025-02-28 11:34 | XMS_ITS | Encounter Summary ---
Author Organization [facility] Address [address] [place] [address] Phone Care Team Providers Care Frame Bender Name Role Phone Stanley Toledo MD Primary Care Provider Ruby Vickers MD Unavailable Encounter Details Date Type Department Care Team (Late st Contact Info) Description 06/09/2024 Scanned Document [facility] [address] [place] [address] Scanning, Generic Provider Social History [...] Description 03/29/2025 11:00 AM EST [facility] 703 [facility] 250 [place] [address] Teo Stokes MD 703 [facility] 2, [address] [place] [address] documented as of this encounter [...] documented as of this encounter Care Teams Frame Bender Relationship Specialty Start Date End Date Stanley Toledo MD [address] [place] [address] PCP - General 05/17/22 Ruby Vickers MD [address] [facility] Medical Office Bldg, [address] [place] [address] Sole Leather Cutting Machine Operator Electrophysiology 10/04/24 documented as of this encounter
--- OUTSIDE RECORDS SUMMARY | 2025-02-28 11:34 | XMS_ITS | Encounter Summary ---
Author Organization [facility] Address [address] [place] [address] Phone Care Team Providers Care Hi Teacher Name Role Phone Stanley Toledo MD Primary Care Provider Ruby Vickers MD Unavailable Encounter Details Date Type Department Care Team (Late st Contact Info) Description 06/17/2024 Scanned Document [facility] [address] [place] [address] Scanning, Generic Provider Social History [...] Description 03/29/2025 11:00 AM EST Office Visit [facility] 703 [facility] 250 [place] [address] Teo Stokes MD 703 [facility] 2, [address] [place] [address] documented as of this encounter [...] documented as of this encounter Care Teams Hi Teacher Relationship Specialty Start Date End Date Stanley Toledo MD [address] [place] [address] PCP - General 05/17/22 Ruby Vickers MD [address] [facility] Medical Office Bldg, [address] [place] [address] Entry Level Chemist Electrophysiology 10/04/24 documented as of this encounter
--- OUTSIDE RECORDS SUMMARY | 2025-02-28 11:34 | XMS_ITS | Encounter Summary ---
Author Organization [facility] Address [address] [place] [address] Phone Care Team Providers Care Application Design Engineer Name Role Phone Stanley Toledo MD Primary Care Provider [phone] Ruby Vickers MD Unavailable Encounter Details Date Type Department Care Team (Late st Contact Info) Description 07/07/2024 Scanned Document [facility] [address] [place] [phone] Scanning, Generic Provider Social History Tobacco Use [...] EST Office Visit [facility] 703 [facility] 250 [place] [phone] Teo Stokes MD 703 [facility] 2, [address] [place] [address] documented as of this encounter [...] documented as of this encounter Care Teams Application Design Engineer Relationship Specialty Start Date End Date Stanley Toledo MD [address] [place] [address] PCP - General 05/17/22 Ruby Vickers MD [address] [facility] Medical Office Bldg, [address] [place] [address] Oil Lease Operator Electrophysiology 10/04/24 documented as of this encounter
--- OUTSIDE RECORDS SUMMARY | 2025-02-28 11:34 | XMS_ITS | Encounter Summary ---
Author Organization [facility] Address [address] [place] [address] Phone Care Team Providers Care Contact Lens Curve Grinder Name Role Phone Stanley Toledo MD Primary Care Provider Ruby Vickers MD Unavailable Encounter Details Date Type Department Care Team (Late st Contact Info) Description 07/14/2024 Scanned Document [facility] [address] [place] [phone] Scanning, Generic Provider Social History Tobacco Use [...] Description 03/29/2025 11:00 AM EST Office Visit [facility] 703 [facility] 250 [place] [address] Teo Stokes MD 703 [facility] 2, [address] [place] [address] documented as of this encounter [...] of this encounter Care Teams Contact Lens Curve Grinder Relationship Specialty Start Date End Date Stanley Toledo MD [address] [place] [address] PCP - General 05/17/22 Ruby Vickers MD [address] [facility] Medical Office Bldg, [address] [place] [address] Vehicle Calibration Engineer Electrophysiology 10/04/24 documented as of this encounter
--- OUTSIDE RECORDS SUMMARY | 2025-02-28 11:39 | XMS_ITS | CCD ---
Author Organization [facility] [place] [facility] Care Team Providers Care Plant Protection Supervisor Name Role Phone Stanley Emerson Unavailable Unavailable Unavailable STANLEY EMERSON Primary Care Physician Unavail able MD Stanley Emerson Primary Care Provider MD Taz Barnes Admit Provider MD Margarito Valentine Other Provider [phone] MD Janice Gonzalez Other Provider DO Bernabe Cr Attending Provider MD Margarito Valentine Attending Provider MD Margarito Valentine Admit Provider Preston Griffin Unavailable Margarito Valentine Unavailable [phone] MOMO Omalley Attending Provider MD Stanley Emerson Primary Care Provider [phone] MD Taz Barnes Admit Provider MD Margarito Valentine Other Provider MD Janice Gonzalez Other Provider DO Bernabe Cr Attending Provider [phone] MD Margarito Valentine Attending Provider [phone] MD Margarito Valentine Admit Provider [phone] MOMO Omalley Attending Provider Carlene Kasper Unavailable HEMEYER ., DR PETERSON Primary Care Unavailable JACOBS ., DR MONTALVO Admitting Unavailable JACOBS ., DR MONTALVO Attending Unavailable JACOBS ., DR MONTALVO Consulting Unavailable Corky Ford Consulting Unavailable HEMEYER ., DR PETERSON Primary Care Unavailable JACOBS ., DR MONTALVO Admitting Unavailable JACOBS ., DR MONTALVO Attending Unavailable JACOBS ., DR MONTALVO Consulting Unavailable LOAN, JZAZY Consulting Unavailable SURY II, ARCADIO Consulting Unavailable [...] MD Stanley Gomez Primary Care Provider MD Preston Griffin Attending Provider MD Teo Al Referring Provider MD Stanley Emerson Primary Care Provider MD Margarito Valentine Attending Provider [phone] MD Stanley Emerson Primary Care Provider [phone] MD Teo Al Attending Provider MD Willy [...] Other Provider DO Bernabe Cr Other Provider [phone] MD Jerrell Gonsales Other Provider MD Mary [...] Other Provider MD Chi Smith Other Provider [phone] WATSON Najera Other Provider MD Dana Haddad Other Provider MD Emmanuel Silverman Other Provider ROCIO Moore Other Provider Unavailable Stanley Emerson MD Primary Care Provider [phone] Stanley Emerson MD Unavailable Stanley Emerson MD Primary Care Provider Black FLAME ANNEALING MACHINE OPERATOR, Dora Unavailable WATSON Bailey Attending Provider [phone] WATSON Truong Other Provider [phone] Stanley Emerson MD Unavailable [phone] Stanley Emerson MD Primary Care Provider [phone] Stanley Emerson MD Unavailable Stanley Emerson MD Primary Care Provider [phone] Stanley Emerson MD Primary Care Provider [phone] Stanley Emerson MD Primary Care Provider Teo Al MD Attending Provider Blanca Boles Attending Unavailable Katia JACOBS Attending Unavailable MOMO OMALLEY Attending Unavailab MOMO Kruger Attending Unavailab MOMO Kruger Attending Unavailab Katia Fong Admitting Unavailable Ktaia JACOBS Attending Unavailable Fabi Gomez Attending Unavailable Zhang FLAME ANNEALING MACHINE OPERATOR, Joi Unavailable Unavailable Black FLAME ANNEALING MACHINE OPERATOR, Dora Unavailable Talya Bo MD Attending Provider [phone] Stanley Emerson MD Primary Care Provider Katia JACOBS Attending Unavailable Fabi Gomez Attending Unavailable Elvi Blanca Jomar Attending Unavailable Blanca Boles Attending Unavailable Fabi Gomez Attending Unavailable Katia JACOBS Attending Unavailable Katia JACOBS Admitting Unavailable Katia JACOBS Attending Unavailable CHRISSY PLATA Referring Unavailable HEMECHERY, EDLUDY J Primary Care Unavailable RAFAELSERVANDO S Attending Unavailable HEMECHERY, EDLUDY J Primary Care Unavailable RAFAELSERVANDO S Admitting Unavailable SERVANDO PEREZ S Attending Unavailable FILI GANDARA Consulting Unavailable CAROLINA LEWIS Referring Unavailable FROY RAZO Consulting Unavailable GOLDY BAPTISTE Consulting Unavailable HEATHER ALVAREZ Consulting Unavailable MORIS BARRAGAN Consulting Unavailable Ruby Montana MD Unavailable Robe Hansen DO Attending Provider [phone] TEO AL Referring Unavailable IDANIA, STANLEY [...] Unavailable Stanley Emerson MD Primary Care Provider [phone] Margarito Valentine MD Attending Provider Joi Zhang LPN Unavailable Idania, Stanley Rich [...] Consulting Unavailable Jad Jaffe Consulting Unavailable Vidya Hernandze Consulting Unavailable Valdo Sandra Consulting Unavailable Rob Almazan Consulting Unavailab Danielito Campoverde Consulting Unavailable Seb Bonds Consulting Unavailable Basilio Tam Consulting Unavailable Reji Garcia Consulting Unavailable Lydia Rene Consulting Unavailable Lucas Dumas Consulting Unavailable Cortney Watkins Consulting Unavailable Jakob Lomax Consulting Unavailable DaromarNick Consulting Unavailable Yaz Beard Consulting Unavailable Venus Man Consulting Unavailable Alaadrianaad Alaerika Consulting Unavailable Shane Durham Consulting Unavailable Tico Whitehead Consulting Unavailable Alonso Maher Consulting Unavailable Humberto Bonds Consulting Unavailable Chi Smith Consulting Unava ilable Chen Najera Consulting Unavailable Dana Haddad Consulting Unavailable Emmanuel Silverman Consulting Unavailable Monisha Moore Consulting Unavailable Myesah Feliz Consulting Unavailable Rogelio Rai Consulting Unavailable [...] Emerson Primary Care Unavailable Rob Peña Attending Unavailab Rob Voss Admitting Unavailab roula EMERSON, STANLEY Rich Attending Unavailable IDANIA, STANLEY Rich Attending Unavailable IDANIA, STANLEY Rich Attending Unavailable IDANIA, STANLEY Rich Attending Unavailable IDANIA, STANLEY Rich Attending Unavailable IDANIA, STANLEY Rich Attending Unavailable IDANIA, STANLEY Rich Attending Unavailable IDANIA, STANLEY Rich Attending Unavailable IDANIA, STANLEY Rich Attending Unavailable Fabi Gomez Attending Unavailable MOMO OMALLEY Attending Unavailab Katia Fong Admitting Unavailable Katia JACOBS Attending Unavailable Katia JACOBS Attending Unavailable Eboni Anderson Attending Unavailable Eboni Anderson Attending Unavailable OrzeBlanca hill Attending Unavailable OrzechBlanca Attending Unavailable Eboni Anderson Attending Unavailable Allergies Allergy Classification Reported Allergen(s) Allergy Type Date of Onset Reaction(s) Facility (4 sources) No Known Medication Allergies; Translations: [No Known Medication Allergies] Propensity to adverse reactions (disorder) [facility] Repository Medications Current Medications Medication Drug Class(es) Dates Sig (Normalized) Sig (Original) Acetaminophen (4 sources) Start: 10-02-2024 acetaminophen (TYLENOL) tablet 650 mg take 2 tablets by [facility] every eight hours Acetaminophen ER 650 MG 2 tablets as nee ded Orally every 8 hrs Active acetaminophen 325 mg / HYDROcodone bitartrate 7.5 mg oral tablet (2 sources) Opioid Agonist Start: 05-06-2023 take 1 tablet by mouth once, then take 1 tablet by mouth every hour [place] 325 mg-7.5 mg oral tablet 1 tab(s), Oral, Once, 1 tab(s), Refill(s) 0, Take 1 hour prior to procedure, [facility]/pharmacy #[id number], 187, cm, 03/11/23 13:44:00 EDT, Height/Length Dosing, 93, kg, 03/11/23 13:44:00 EDT, Weight Dosing Start Date: 05/06/23 Status: Ordered [id number] 200 actuat albuterol 0.09 mg/actuat metered dose [...] Active Start: 09-24-2024 take 1 capsule by [facility] once daily Keflex 500 mg Cap 500 mg = 1 cap(s), Oral, Daily, Take 1 capsule the day before the procedure and 1 capsule after the procedure, # 2 cap(s), Refills(s) 0, Pharmacy: [facility]/pharmacy #[id number], 187, cm, 07/15/24 10:46:00 EST, Height/Length Dosing, 93, kg, 07/15/24 10:46:00 EST, Weight Dosing Start Date: 09/24/24 Status: Ordered Quantity: 2.0 Unit: cap(s) Repeat number: 1 Start: 09-09-2024 End: 09-04-2025 Keflex 250 mg Cap 250 mg = 1 cap(s), Oral, MonWedFri, X 30 day(s), # 13 cap(s), Refills(s) 11, Pharmacy: [facility]/pharmacy #[id number], 187, cm, 07/15/24 10:46:00 EST, Height/Length Dosing, 93, kg, 07/15/24 10:46:00 EST, Weight Dosing Start Date: 09/09/24 Stop Date: 09/04/25 Status: Ordered Quantity: 13.0 Unit: cap(s) Repeat number: 12 Start: 07-15-2024 take 1 capsule by [facility] once daily Keflex 250 mg Cap 250 mg = 1 cap(s), Oral, Daily, # 30 cap(s), Refills(s) 1, [id number], cm, 07/15/24 10:46:00 EST, Height/Length [...] mg tablet Indications: Coronary artery disease involving [place] coronary artery of [place] heart without angina pectoris Patient will take 4 tablets ( 300mg) one time only, then will take one tablet daily 90 tablet 3 03/05/2024 Active donepezil hydrochloride 10 mg oral tablet (13 sources) Start: 11-19-2024 End: 05-18-2025 take 2 [...] Daily, # 14 tab(s), Refills(s) 0, Pharmacy: [facility]/pharmacy #[id number], 187, cm, 06/10/23 13:43:00 EST, [...] days Active QUEtiapine 25 mg oral tablet (15 sources) Atypical Antipsychotic Start: take 1 tablet [...] Well + Probiotics Gummies oral tablet, chewable (12 sources) Start: 03-02-2024 take 1 tablet by [...] tablet daily in the evening. Follow with [facility]. Patient will take coumadin and [...] sodium chloride 0.9 % 250 mL IVPB ([id number]) (1 source) Start: 10-02-2024 End: 10-03-2024 500 mg, IntraVENous, EVERY 24 HOURS, 2 doses, First dose on 10/02/24 at 1200, Last dose on 10/03/24 at 1200, Antimicrobial Indications: Pneumonia (CAP), CAP duration of therapy: 3 days, Use 20mm (Blue) [id number] Adapter Preparation instructions: Attach medication vial to one 20mm (Blue) [id number] adapter. James fluid bag with adapter, mix, [...] procedure, # 6 tab(s), Refills(s) 0, Pharmacy: [facility]/pharmacy #[id number], 187, cm, 09/18/22 14:39:00 EDT, Height/Length Dosing, 93, kg, 09/18/22 14:39:00 EDT, Weight Dosing Start Date: 12/03/22 Status: Ordered Start: 07-25-2022 take 1 tablet by charlene th once daily Cipro 250 mg Tab 250 mg = 1 tab(s), Oral, Daily, Take 1 tablet the day before the procedure and 1 tablet after the procedure, # 2 tab(s), Refills(s) 0, Pharmacy: 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 USE ANTICOAGULANTS] Onset: 09-08-2022 Episodic Other aftercare (17 sources) Taking high risk medication; Translations: [Other penitentiary (current) drug therapy] Onset: 02-10-2024 02-10-2024 Episodic Other aftercare (1 source) Long-term current use of anticoagulant; Translations: [ocean transportation intermediary (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 EHR Cmte Other aftercare (3 sources) Other rn long term care (current) drug therapy; Translations: [OTH DIESEL ENGINE FITTER CURRENT DRUG THERAPY] Onset: 09-23-2022 Episodic Other aftercare (1 source) nursing home (current) use of aspirin; Translations: [DIESEL ENGINE FITTER 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] Onset: 05-22-2022 Episodic Other aftercare (20 sources) Polypharmacy ; Translations: [Other penitentiary (current) drug therapy] Onset: 12-08-2020 12-19-2022 Episodic [...] caused by tuberculosis or sexually transmitted disease) (18 sources) Left lower zone pneumonia; Translations: [Pneumonia, unspecified organism] Onset: 10-02-2024 02-17-2024 Episodic Residual codes; unclassified (8 sources) Other specified postprocedural states; Translations: [Other postprocedural status] Onset: 09-16-2022 Episodic Residual codes; unclassified (1 source) Chills (without fever); Translations: [CHILLS WITHOUT FEVER] Onset: 05-23-2022 Episodic Residual codes; unclassified (5 sources) Disorientation, unspecified; Translations: [Other alteration of consciousness] Onset: 01-16-2024 01-23-2024 Episodic Residual codes; unclassified (15 sources) Edema of lower extremity; Translations: [Localized edema] Onset: 10-02-2024 10-02-2024 Episodic Residual codes; unclassified (1 source) Other [...] Reference Range Facility Ambulatory Visit Summaryon 0 02-10-2025 Ambulatory Visit Summary Ambulatory Visit Summary ALEX ANDERSON :1945 Visit Date:02/10/2025 Ambulatory Visit Instructions Your Diagnosis Urinary retention Your Care Team Attending Physician - CT Boles APRN, Blanca Hadley Primary Care Physician [...] Cap) cephalexin (Keflex 500 mg Cap) clopidogrel donepezil (donepezil 10 mg Tab) ferrous [...] (07/31/2022). Discharge Vitals Heart Rate (Peripheral) 68 Blood Pressure 106/70 What to do next Scheduled Follow-Up Appointments 2024 1:50 PM EDT With: TC Boles APRN, [place] X Where: [facility] [address] [place] [address]- Medications What How Much When Instructions Unchanged [...] the procedure Unchanged clopidogrel 75 Milligram Unchanged donepezil (donepezil 10 mg Tab) 1 Tablets By Mouth Once a day (at bedtime) Unchanged ferrous sulfate (ferrous sulfate (as elemental [...] Unchanged potassium chloride (Klor-Con) 20 Milliequivalent Unchanged quetiapine (quetiapine 25 mg Tab) 1 Tablets By Mouth 3 times a day Unchanged warfarin (warfarin 2 [...] you for choosing us for your care. Patient Portal You may access all of your results and other medical record information on our secure patient portal. If you are not signed up for this yet, please contact Health Information Management at [phone] to get signed up today. Language Information Language assistance services are available as needed. Normal [facility] ALL HEMOGLOBINon 02-02-2025 Hemoglobin (Bld) [Mass/Vol] 10.9 g/dL Low 14.0 - 18.0 g/dL [facility] Interpretation and review of laboratory results Abnormal [facility] UroVysion Fish and Urine Cyt o ([facility])on 11-29-2024 UVFISH & UC Diagnosis Info Invalid Interpretation Code [facility] Comment on above: Result Comment: A:Ur [...] with cytology and cystoscopy results. * CPT: 35341, 36889. Microscopic Notes - Microscopic Notes - Abnormal cells 9p21 deletions: Abnormal cells aneploid events: Total cells analyzed: 69 Hematuria: Gross Description Site ID:A color Light Yellow fixative Alcohol Received 100 mls of clear light yellow fluid with the patient's name and, Bladder Wash on the vial. Electronically signed by : on: 11/29/2024 06:34:10 Performed By: #### 1 [id number] #### [facility] [address] [place] [address] Ambulatory Visit Summaryon 0 11-16-2024 Ambulatory Visit Summary Ambulatory Visit Summary ALEX ANDERSON :1945 Visit Date:11/16/2024 Ambulatory Visit Instructions Your Diagnosis History of bladder cancer Urinary retention Your Care Team Attending Physician - ARLENE CASILLAS, Katia Hall Primary Care Physician - IDANIA ACSILLAS, STANLEY Rich This Is Your Medications List [...] Eboni Anderson PA-C Where: [facility] [address] [place] [address]- You Need to Schedule the Following Appointments Follow Up with ARLENE CASILLAS, ADRIA Sterling When: Where: [facility] [address], [place] [address]- Medications What How Much When Instructions Unchanged [...] bladder c (more content not included)... Normal [facility] Reminderson 11-16-2024 Reminders Reminders From: Dana Rivas To: [facility] - Recalls Jacobs; Sent: 08/06/2024 15:16:19 EDT Show up: 01/24/2025 15:16:00 EDT Subject: cysto/fish/cytol Due Date/Time: 02/21/2025 15:16:00 EDT Reminder/Recall Patient is due in Mar 2025 for 6 month cysto/fish/cytol, bt ck Patient is due in October 2025 for 1 year cysto/FISH/cytol, bt ck Normal [facility] UroVysion Fish and Urine Cyt o ([facility])on 11-16-2024 [facility] Method of Extraction Bladder Wash Normal [facility] Comment on above: Performed By: #### 1 [id number] #### [facility] [address] [place] [address] [facility] Number of Jars 1 Invalid Interpretation Code [facility] Comment on above: Performed By: #### 1 [id number] #### [facility] [address] [place] [address] [facility] Specimen Bladder Wash Normal [facility] Comment on above: Performed By: #### 1 [id number] #### [facility] [address] [place] [address] [facility] Type of Service Technical Only Normal [facility] Comment on above: Performed By: #### 1 [id number] #### [facility] [address] [place] [address] Urology Office/Clinic Noteon 11-16-2024 Urology Office/Clinic Note [...] villarreal changes Follow-up With When Contact Information ARLENE CASILLAS, Katia Hall, URL [facility] [address], [place] [address]- Additional Instructions: 1 yr surveillance cysto/bt ck/FISH/cytol Patient Education Indwelling Urinary Catheter Insertion, Care After Cancer Screening for Males I, Citlalli Rushing, personally scribed for Dr. Jacobs on 11/16/2024 14:44:28. . Documentation recorded by the scribe, Citlalli [...] tablet, extended (more content not included)... Normal [facility] Comment on above: Result Comment: Elec tronically Signed By: Katia JACOBS MD\.br\Date and Time Signed: 11/16/24 14:52 EDT\.br\Electronically Co-Signed By: Citlalli Rushing\.br\Date and Time Co-Signed: 11/16/24 14:44 EDT Ambulatory [...] Katia JACOBS MD Where: [facility] [address] [place] [address]- Medications What How Much When Instructions Unchanged [...] for choosing us for your care. Normal [facility] Erythrocyte distribution wid th Auto (RBC) [Ratio]on 10-27-2024 Erythrocyte distribution width (RBC) [Ratio] Erythrocyte distribution width [Ratio] by Automated count High 11.0-15.0 [facility] Estimated glomerular filtrat ion rate (GFR) non- Americanon 10-27-2024 GFR/1.73 sq M.predicted among non-blacks MDRD (S/P/Bld) [Vol rate/Area] Estimated glomerular filtration rate (GFR) non- Low >=60 mL/min/1.7 3m 2 [facility] CBC WITH PLATELET NO DI FFERENTIALon 10-27-2024 Erythrocyte distribution width (RBC) [Ratio] 18.7 % High 11.0 - 15.0 % [facility] Hematocrit (Bld) [Volume fraction] 35.8 % Low 42.0 - 54.0 % [facility] Hemoglobin (Bld) [Mass/Vol] 10.7 g/dL Low 14.0 - 18.0 g/dL [facility] Interpretation and review of laboratory results Abnormal [facility] MCH (RBC) [Entitic mass] 24 pg Low 25.9 - 34.0 pg [facility] MCHC (RBC) [Mass/Vol] 29.9 g/dL 29.9 - 35.2 g/dL [facility] MCV (RBC) [Entitic vol] 80.4 fL 80.0 - 94.0 fL [facility] Platelet mean volume (Bld) [Entitic vol] 9.6 fL 9.5 - 13.5 fL [facility] TBH PLT 235 [facility] TBH RBC 4.45 Low [facility] TBH WBC 6.7 [facility] Hematocrit Auto (Bld) [Volum e fraction]on 10-27-2024 Hematocrit (Bld) [Volume fraction] Hematocrit [Volume Fraction] of Blood by Automated count Low 42.0-54.0 [facility] Hemoglobin [Mass/volume] in Bloodon 10-27-2024 Hemoglobin (Bld) [Mass/Vol] Hemoglobin [Mass/volume] in Blood Low 14.0-18.0 [facility] Iron binding capacity [Mass/ volume] in Serum or Plasmaon 10-27-2024 Iron binding capacity [Mass/Vol] Iron binding capacity [Mass/volume] in Serum or Plasma 250.0-450. 0 [facility] Iron saturation [Mass Fracti on] in Serum or Plasmaon 10-27-2024 Iron saturation [Mass fraction] Iron saturation [Mass Fraction] in Serum or Plasma [facility] Laboratory - Chemistry and C hemistry - challengeon 10-27-2024 Albumin [Mass/Vol] 3.3 g/dL Low 3.4-5.0 [facility] Calcium [Mass/Vol] 8.7 mg/dL 8.5-10.1 [facility] Chloride [Moles/Vol] 104 mmol/L 98-107 [facility] CO2 [Moles/Vol] 29.3 mmol/L 21.0-32.0 [facility] Cobalamin (Vitamin B12) [Mass/Vol] 593 pg/mL 232-1245 [facility] Comment on above: Performed at: - [facility] [address] [id number] Director: Morgan Caprenter PhD, Phone: [phone] Creatinine [Mass/Vol] 2.17 mg/dL High 0.70-1.30 [facility] GFR/1.73 sq M.predicted MDRD (S/P/Bld) [Vol rate/Area] 36 mL/min/{1.73_m2} Low >=60 mL/min/1.7 3m 2 [facility] Glucose [Mass/Vol] 95 mg/dL 74-106 [facility] Iron [Mass/Vol] 34.0 ug/dL Low 65.0-175.0 [facility] Magnesium [Mass/Vol] 2.1 mg/dL 1.8-2.4 [facility] Potassium [Moles/Vol] 3.4 mmol/L Low 3.5-5.1 [facility] Sodium [Moles/Vol] 144 mmol/L 136-145 [facility] Urea nitrogen [Mass/Vol] 35.0 mg/dL High 7.0-18.0 [facility] Urea nitrogen/Creatinine [Mass ratio] 16.1 mg/mg [facility] Laboratory - Urinalysison Protein (U) [Mass/Vol] 54.5 mg/dL High <=11.9 [facility] Leukocytes [#/volume] correc phil for nucleated erythrocytes in Blood by Automated counon 10-27-2024 WBC corrected for nucl RBC Auto (Bld) [#/Vol] Leukocytes [#/volume] corrected for nucleated erythrocytes in Blood by Automated coun 4.0-11.0 [facility] MCH Auto (RBC) [Entitic mass ]on 10-27-2024 MCH (RBC) [Entitic mass] MCH [Entitic mass] by Automated count Low 25.9-34.0 [facility] MCHC Auto (RBC) [Mass/Vol]on 10-27-2024 MCHC (RBC) [Mass/Vol] MCHC [Mass/volume] by Automated count 29.9-35.2 [facility] MCV Auto (RBC) [Entitic vol] on 10-27-2024 MCV (RBC) [Entitic vol] MCV [Entitic vol ume] by Automated count 80.0-94.0 [facility] No Panel Informationon 10-27 Urine Random Creatinine 77.97 mg/dL 20.0 0-300. 00 [facility] Folate 39.70 ng/mL 8.60-58.90 [facility] Phosphorus Level 3.4 mg/dL 2.6-4.7 [facility] Platelet mean volume Auto (B ld) [Entitic vol]on 10-27-2024 Platelet mean volume (Bld) [Entitic vol] Platelet mean volume [Entitic volume] in Blood by Automated count 9.5-13.5 [facility] Platelets Auto (Bld) [#/Vol] on 10-27-2024 Platelets (Bld) [#/Vol] Platelets [#/vol ume] in Blood by Automated count 150-450 [facility] RBC Auto (Bld) [#/Vol]on RBC (Bld) [#/Vol] Erythrocytes [#/volu me] in Blood by Automated count Low 4.70-6.10 [facility] Serum or plasma anion gap de terminationon 10-27-2024 Anion gap [Moles/Vol] Serum or plasma an ion gap determination [facility] Urine protein/creatinine rat ioon 10-27-2024 Protein/Creatinine (U) [Ratio] Urine protein/creatinine ratio [facility] Creatinine (Bld) [Mass/Vol]O rdered By: Margarito Valentine on 10-11-2024 Creatinine [Mass/Vol] Whole blood creati nine measurement High 0.6-1.3 [facility] Comment on above: ER/ESD physician is notified/shown all ISTAT results.Critical values may be confirmed by laboratory testing ifdeemed necessary by ER attending doctor. INR in Platelet poor plasma by Coagulation assayOrdered By: Margarito Valentine on 10-11-2024 INR Coag (PPP) [Relative time] INR in Platelet poor plasma by Coagulation assay [facility] Comment on above: INR Therapeutic Rang [...] Creatinine [Mass/Vol] 2.1 mg/dL High 0.6-1.3 [facility] Comment on above: Result Comment: ER/E SD physician is notified/shown all ISTAT results. Critical values may be confirmed by laboratory testing if deemed necessary by ER attending doctor. Performed By: #### A DDONUAPLUS, CUU #### [facility] [address] [place] [address] ISTAT GFR 31.235 Normal [facility] Comment on above: Result Comment: PERF ORMED BY: [address] [place] [address] PATHOLOGIST RIVETER PNEUMATIC ED CRUZ M.D. Performed By: #### A DDONUAPLUS, CUU #### [facility] [address] No Panel InformationOrdered By: Margarito Valentine on 10-11-2024 Bedside Estimated GFR (eGFR) 31.235 [facility] Partial Thromboplastin Timeo n 10-11-2024 aPTT Coag (Bld) [Time] 36.8 s High 25.1-36.5 [facility] Comment on above: Result Comment: A he matocrit value greater than 55% may lead to inaccurate results in coagulation testing. Patients having hematocrit values >55% require a special collection tube for coagulation studies. Please contact the laboratory at [phone] for redraw instructions. PERFORMED BY: [place] [id number] PATHOLOGIST RIVETER PNEUMATIC ED CRUZ M.D. Performed By: #### P TT, PT #### [place] [id number] [facility] Prothrombin Time INRon 10-11 INR Coag (PPP) [Relative time] 1.6 {INR} Normal [facility] Comment on above: Result [...] Performed By: #### P TT, PT #### [address] PT Coag (PPP) [Time] 17.9 s High 9.0-12.9 [facility] Comment on above: Result Comment: A he matocrit value greater than 55% may lead to inaccurate results in coagulation testing. Patients having hematocrit values >55% require a special collection tube for coagulation studies. Please contact the laboratory at [phone] for redraw instructions. Performed By: #### P TT, PT #### [address] Prothrombin time (PT)Ordered By: Margarito Valentine on 10-11-2024 PT Coag (PPP) [Time] Prothrombin time (PT) High 9.0- 12.9 [facility] Comment on above: A hematocrit value g reater than 55% may lead to inaccurate results in coagulation testing. Patients having hematocrit values >55% require a special collection tube for coagulation studies. Please contact the laboratory at [phone] for redraw instructions. aPTT in Platelet poor plasma by Coagulation assayOrdered By: Margarito Valentine on 10-11-2024 aPTT Coag (PPP) [Time] Activated partial thromboplastin time (aPTT) in platelet poor plasma by coagulation a High 25.1-36.5 [facility] Comment on above: A hematocrit value g reater than 55% may lead to inaccurate results in coagulation testing. Patients having hematocrit values >55% require a special collection tube for coagulation studies. Please contact the laboratory at [phone] for redraw instructions. Cult,Urineon 10-06-2024 Cult,Urine Specimen Description .CLEAN CATCH URINE Special Requests Site: Urine Culture ENTEROBACTER CLOACAE COMPLEX >100,000 CFU/ML Report Status FINAL 10/06/2024 SUSCEPTIBILITY Organism ENCLCX Method RITESH Gentamicin <=1 SUSCEPTIBLE Levofloxacin 1 INTERMEDIATE Nitrofurantoin 64 INTERMEDIATE Piperacillin/Tazobactam 64 INTERMEDIATE Tobramycin <=1 SUSCEPTIBLE Trimethoprim/Sulfa <=20 SUSCEPTIBLE SUSCEPTIBILITY Organism ENCLCX Method ROGERS CARRENO Ceftriaxone SUSCEPTIBLE Susceptible [facility] Comment on above: Performed By: #### O BS #### [facility] [address] [place] [address] [employer] Superintendent: Milo Engle DO MHPT CULT,URINEon 10-06-2024 Interpretation and review of laboratory results Abnormal [facility] MHPT CULT,URINE Specimen Description .CLEAN CATCH URINE [facility] MHPT CULT,URINE Special Requests Sit e: Urine [facility] MHPT CULT,URINE Culture ENTEROBACTER CLOACAE COMPLEX >100,000 CFU/ML [facility] Report Status FINAL 10/06/2024 [facility] MHPT CULT,URINE Method RITESH [facility] MHPT CULT,URINE Gentamicin <=1 SUSCEPTIBLE Susceptible [facility] MHPT CULT,URINE Levofloxacin 1 INTERMEDIATE Intermediate [facility] MHPT CULT,URINE Nitrofurantoin 64 INTERMEDIATE Intermediate [facility] MHPT CULT,URINE Piperacillin/Tazobac kwong 64 INTERMEDIATE Intermediate [facility] MHPT CULT,URINE Tobramycin <=1 SUSCEPTIBLE Susceptible [facility] MHPT CULT,URINE Trimethoprim/Sulfa < =20 SUSCEPTIBLE Susceptible [facility] MHPT CULT,URINE Method ROGERS CARRENO Susceptible [facility] MHPT CULT,URINE Ceftriaxone SUSCEPTIBLE Susceptible [facility] Original Ordering Provider: WAQAR MAURICIOISYNC [facility] No Panel Informationon 10-06 MHPT CULT,URINE SUSCEPTIBILITY Susceptible [facility] MHPT CULT,URINE Organism ENCLCX Susceptible [facility] Basic Metab w/rfx MGon 10-05 Anion gap [Moles/Vol] 9 mmol/L Normal 9-16 [facility] Comment on above: Performed By: #### O BS #### [facility] [address] [facility] [place] [address] [employer] Superintendent: Milo Engle DO Calcium [Mass/Vol] 8.6 mg/dL Normal 8.6-10.4 [facility] Comment on above: Performed By: #### O BS #### [facility] [address] [place] [address] [employer] Superintendent: Milo Engle DO Chloride [Moles/Vol] 105 mmol/L Normal 98-107 [facility] Comment on above: Performed By: #### O BS #### [facility] [address] [place] [address] [employer] Superintendent: Milo Engle DO CO2 [Moles/Vol] 27 mmol/L Normal 20-31 [facility] Comment on above: Performed By: #### O BS #### [facility] [address] [place] [address] [employer] Superintendent: Milo Engle DO Creatinine [Mass/Vol] 1.9 mg/dL High 0.7-1.2 [facility] Comment on above: Performed By: #### O BS #### [facility] [place] [address] [employer] Superintendent: Milo Engle DO GFR/1.73 sq M.predicted among non-blacks MDRD (S/P/Bld) [Vol rate/Area] 35 mL/min/{1.73_m2} Low >60 [facility] Comment on above: Result Comment: These [...] secretion. Performed By: #### O BS #### [facility] [address] [facility] [place] [address] [employer] Superintendent: Milo Engle DO Glucose [Mass/Vol] 97 mg/dL Normal 74-99 [facility] Comment on above: Performed By: #### O BS #### [facility] [address] [place] [address]. [place] [address] [employer] Superintendent: Milo Engle DO Potassium [Moles/Vol] 3.3 mmol/L Low 3.7-5.3 [facility] Comment on above: Performed By: #### O BS #### [facility] [address] [place] [address]. [place] [address] [employer] Superintendent: Milo Engle DO Sodium [Moles/Vol] 141 mmol/L Normal 136-145 [facility] Comment on above: Performed By: #### O BS #### [facility] [address] [place] [address] [employer] Superintendent: Milo Engle DO Urea nitrogen [Mass/Vol] 24 mg/dL High 8-23 [facility] Comment on above: Performed By: #### O BS #### [facility] [address] [place] [address] [employer] Superintendent: Milo Engle DO Basic Metabolic Panel w/ Ref jeancarlos to MGon 10-05-2024 Anion gap [Moles/Vol] 9 mmol/L 9 - 16 mmol/L [facility] Calcium [Mass/Vol] 8.6 mg/dL 8.6 - 10. 4 mg/dL [facility] Chloride [Moles/Vol] 105 mmol/L 98 - 10 7 mmol/L [facility] CO2 [Moles/Vol] 27 mmol/L 20 - 31 mmol/L [facility] Creatinine [Mass/Vol] 1.9 mg/dL High 0.7 - 1.2 mg/dL [facility] Vahe Cowan Filt Rate 35 Low - PINF [facility] Comment on above: These results are not [...] 97 mg/dL 74 - 99 mg/dL [facility] Interpretation and review of laboratory results Abnormal [facility] Potassium [Moles/Vol] 3.3 mmol/L Low 3.7 - 5.3 mmol/L [facility] Sodium [Moles/Vol] 141 mmol/L 136 - 145 mmol/L [facility] Urea nitrogen [Mass/Vol] 24 mg/dL High 8 - 23 mg/dL [facility] CBC with Auto Differentialon 10-05-2024 Basophils (Bld) [#/Vol] 0.05 10*3/uL [facility] Basophils/100 WBC (Bld) 1 % 0 - 2 % B [facility] Eosinophils (Bld) [#/Vol] 0.2 10*3/uL [facility] Eosinophils/100 WBC (Bld) 4 % 0 - 4 % [facility] Erythrocyte distribution width (RBC) [Ratio] 21.2 % High 11.5 - 14.9 % [facility] Hematocrit (Bld) [Volume fraction] 35.3 % Low 41 - 53 % [facility] Hemoglobin (Bld) [Mass/Vol] 11.5 g/dL Low 13.5 - 17.5 g/dL [facility] Immature granulocytes (Bld) [#/Vol] 0 10*3/uL [facility] Immature granulocytes/100 WBC (Bld) 0 % 0 [facility] Interpretation and review of laboratory results Abnormal [facility] Lymphocytes/100 WBC (Bld) 30 % 24 - 44 % [facility] Lymphocytes/100 WBC (Bld) 1.53 % [facility] MCH (RBC) [Entitic mass] 24.8 pg Low 26 - 34 pg [facility] MCHC (RBC) [Mass/Vol] 32.7 g/dL 31 - 3 7 g/dL [facility] MCV (RBC) [Entitic vol] 75.8 fL Low 80 - 100 fL [facility] Monocytes/100 WBC (Bld) 7 % 1 - 7 % B on [facility] Monocytes/100 WBC (Bld) 0.36 % B on [facility] Morphology Ian (Bld) [Interp] ANISOCYTOSIS PRESENT [facility] Morphology Ian (Bld) [Interp] HYPOCHROMIA PRESENT [facility] Morphology Ian (Bld) [Interp] FEW ELLIPTOCYTES [facility] Neutrophils/100 WBC (Bld) 58 % 36 - 66 % [facility] Platelet mean volume (Bld) [Entitic vol] 8.1 fL 6.0 - 12.0 fL [facility] Platelets (Bld) [#/Vol] 173 10*3/uL [facility] RBC (Bld) [#/Vol] 4.65 10*6/uL 4.5 - 5.9 m/uL [facility] Segmented neutrophils/100 WBC (Bld) 2.96 % [facility] WBC other (Bld) [#/Vol] 5.1 B on [facility] CBC with Diffon 10-05-2024 Abs. Basophil 0.05 k/uL Normal 0.0-0.2 [facility] Comment on above: Performed By: #### O BS #### [facility] [address] [place] [address] [employer] Superintendent: Fanelly, Milo, DO Abs.Imm.Granulocyte 0.00 k/uL Normal 0.00-0.30 [facility] Comment on above: Performed By: #### O BS #### [facility] [address] [place] [address] [employer] Superintendent: Milo Engle DO Abs.Neutrophil (Seg) 2.96 k/uL Normal 1.3-9.1 [facility] Comment on above: Performed By: #### O BS #### [facility] [address] [place] [address] [employer] Superintendent: Milo Engle DO Basophils/100 WBC (Bld) 1 % Normal 0-2 [facility] Comment on above: Performed By: #### O BS #### [facility] [place] [address] [employer] Superintendent: Milo Engle DO Eosinophils (Bld) [#/Vol] 0.20 10*3/uL Normal 0.0-0.4 [facility] Comment on above: Performed By: #### O BS #### [facility] [place] [address] [employer] Superintendent: Milo Engle DO Eosinophils/100 WBC (Bld) 4 % Normal 0-4 [facility] Comment on above: Performed By: #### O BS #### [facility] [place] [address] [employer] Superintendent: Milo Engle DO Immature granulocytes/100 WBC (Bld) 0 % Normal 0 [facility] Comment on above: Performed By: #### O BS #### [facility] [place] [address] [employer] Superintendent: Milo Engle DO Lymphocytes (Bld) [#/Vol] 1.53 10*3/uL Normal 1.0-4.8 [facility] Comment on above: Performed By: #### O BS #### [facility] [address] [place] [address] [employer] Superintendent: Milo Engle DO Lymphocytes/100 WBC (Bld) 30 % Normal 24-44 [facility] Comment on above: Performed By: #### O BS #### [facility] [address] [place] [address] [employer] Superintendent: Milo Engle DO Monocytes (Bld) [#/Vol] 0.36 10*3/uL Normal 0.1-1.3 [facility] Comment on above: Performed By: #### O BS #### [facility] [address] [place] [address] [employer] Superintendent: Milo Engle DO Monocytes/100 WBC (Bld) 7 % Normal 1-7 M [facility] Comment on above: Performed By: #### O BS #### [facility] [address] [place] [address] [employer] Superintendent: Milo Engle DO Morphology Ian (Bld) [Interp] ANISOCYTOSIS PRESENT Normal [facility] Comment on above: Result Comment: HYPO CHROMIA PRESENT FEW ELLIPTOCYTES Performed By: #### O BS #### [facility] [address] [facility] [place] [address] [employer] Superintendent: Milo Engle DO Neutrophil (Seg) 58 % Normal 36-66 [facility] Comment on above: Performed By: #### O BS #### [facility] [address] [place] [address] [employer] Superintendent: Milo Engle DO Erythrocyte distribution width (RBC) [Ratio] 21.2 % High 11.5-14.9 [facility] Comment on above: Performed By: #### O BS #### [facility] [address] [place] [address] [employer] Superintendent: Milo Engle DO Hematocrit (Bld) [Volume fraction] 35.3 % Low 41-53 [facility] Comment on above: Performed By: #### O BS #### [facility] [place] [address] [employer] Superintendent: Milo Engle DO Hemoglobin (Bld) [Mass/Vol] 11.5 g/dL Low 13.5-17.5 [facility] Comment on above: Performed By: #### O BS #### [facility] [address] [place] [address] [employer] Superintendent: Milo Engle DO MCH (RBC) [Entitic mass] 24.8 pg Low 26-34 [facility] Comment on above: Performed By: #### O BS #### [facility] [place] [address] [employer] Superintendent: Milo Engle DO MCHC (RBC) [Mass/Vol] 32.7 g/dL Normal 31-37 [facility] Comment on above: Performed By: #### O BS #### [facility] [address] [place] [address] [employer] Superintendent: Milo Engle DO MCV (RBC) [Entitic vol] 75.8 fL Low 80-100 M [facility] Comment on above: Performed By: #### O BS #### [facility] [place] [address] [employer] Superintendent: Milo Engle DO Platelet mean volume (Bld) [Entitic vol] 8.1 fL Normal 6.0-12.0 [facility] Comment on above: Performed By: #### O BS #### [facility] [address] [place] [address] [employer] Superintendent: Milo Engle DO Platelets (Bld) [#/Vol] 173 10*3/uL Normal 150-450 [facility] Comment on above: Performed By: #### O BS #### [facility] [address] [place] [address] [employer] Superintendent: Milo Engle DO RBC (Bld) [#/Vol] 4.65 10*6/uL Normal 4.5-5.9 [facility] Comment on above: Performed By: #### O BS #### [facility] [address] [place] [facility] [place] [place] [address] [employer] Superintendent: Milo Engle DO WBC (Bld) [#/Vol] 5.1 10*3/uL Normal 3.5-11.0 [facility] Comment on above: Performed By: #### O BS #### [facility] [address] [facility] [place] [address] [employer] Superintendent: Milo Engle DO EKG 12 LeadOrdered By: All Cornejo on 10-05-2024 Atrial Rate [address] [employer] Phone: P [place] [address] [employer] Phone: P-R Interval [address] [employer] Phone: Q-T Interval [address] [employer] Phone: QRS Duration 118 ms [facility] [employer] Phone: [phone] QTc Calculation (Bazett) [address] [employer] Phone: R Hardin -16 degrees [facility] [employer] Phone: T Hardin [address] [employer] Phone: Ventricular Rate 73 BPM [facility] Phone: [employer] Phone: EKG 12 Leadon 10-05-2024 Sinus rhythm with 1s t degree A-V block Incomplete left bundle branch block ST & T wave abnormality, consider anterior ischemia Abnormal ECG When compared with ECG of 04-Oct-2024 15:45, (unconfirmed) No significant change was found [facility] BETTY All Conrejo, DO - 10/05/2024 Sinus rhythm with 1st degree A-V block Incomplete left bundle branch block ST & T wave abnormality, consider anterior ischemia Abnormal ECG When compared with ECG of 04-Oct-2024 15:45, (unconfirmed) No significant change was found [facility] Iron Binding Cap.on 10-06-19 25 % Fe Saturation 41 % Normal 20-55 [facility] Comment on above: Performed By: #### O BS #### [facility] [address] [place] [address] [employer] Superintendent: Milo Engle DO Iron [Mass/Vol] 103 ug/dL Normal 61-157 [facility] Comment on above: Performed By: #### O BS #### [facility] [address] [place] [address] [employer] Superintendent: Milo Engle DO Total Fe Binding Cap 250 ug/dL Normal 250-450 [facility] Comment on above: Performed By: #### O BS #### [facility] [address] [place] [address] [employer] Superintendent: Milo Engle DO Unbound Fe Bind Cap 147 ug/dL Normal 112-347 [facility] Comment on above: Performed By: #### O BS #### [facility] [address] [place] [address] [employer] Superintendent: Milo Engle DO Iron and TIBCon 10-05-2024 Iron [Mass/Vol] 103 ug/dL 61 - 157 ug/dL [facility] Iron binding capacity [Mass/Vol] 250 ug/dL 250 - 450 ug/dL [facility] Iron saturation [Mass fraction] 41 % 20 - 55 % [facility] UIBC 147 ug/dL 112 - 347 ug/dL [facility] Magnesiumon 10-05-2024 Magnesium [Mass/Vol] 2.3 mg/dL 1.6 - 2 .4 mg/dL [facility] Magnesium [Mass/Vol] 2.3 mg/dL Normal 1.6-2.4 [facility] Comment on above: Performed By: #### O BS #### [facility] [address] [place] [address] [employer] Superintendent: Milo Engle DO PTon 10-05-2024 INR Coag (PPP) [Relative time] 2.0 {INR} Normal [facility] Comment on above: Result Comment: Therapeutic Range: Moderate Anticoagulant Intensity: INR = 2.0-3.0 High Anticoagulant Intensity: INR = 2.5-3.5 Performed By: #### O BS #### [facility] [address] [place] [address] [employer] Superintendent: Milo Engle DO PT Coag (PPP) [Time] 24.9 s High 11.8-14.6 [facility] Comment on above: Performed By: #### O BS #### [facility] [address] [place], [place] [id number] [employer] Superintendent: Milo Engle DO Protime-INRon 10-05-2024 INR Coag (PPP) [Relative time] 2 {INR} [facility] Comment on above: Therapeutic Range: Moderate Anticoagulant Intensity: INR = 2.0-3.0 High Anticoagulant Intensity: INR = 2.5-3.5 Interpretation and review of laboratory results Abnormal [facility] PT Coag (PPP) [Time] 24.9 s High [facility] Basic Metab w/rfx MGon 10-04 Anion gap [Moles/Vol] 8 mmol/L Low 9-16 [facility] Comment on above: Performed By: #### B ROBYNXMAGY, PT #### [facility] [address] [place] [facility] [place] [place] [address] [employer] Superintendent: Milo Engle DO Calcium [Mass/Vol] 8.7 mg/dL Normal 8.6-10.4 [facility] Comment on above: Performed By: #### B ROBYNXMAGY, PT #### [facility] [address] [facility] [place] [address] [employer] Superintendent: Milo Engle DO Chloride [Moles/Vol] 109 mmol/L High 98-107 [facility] Comment on above: Performed By: #### B MAGY MUÑIZ, PT #### [facility] [place] [address] [employer] Superintendent: Milo Engle DO CO2 [Moles/Vol] 27 mmol/L Normal 20-31 [facility] Comment on above: Performed By: #### B MAGY MUÑIZ, PT #### [facility] [place] [address] [employer] Superintendent: Milo Engle DO Creatinine [Mass/Vol] 1.8 mg/dL High 0.7-1.2 [facility] Comment on above: Performed By: #### B MAGY MUÑIZ, PT #### [facility] [address] [place] [address] [employer] Superintendent: Milo Engle DO GFR/1.73 sq M.predicted among non-blacks MDRD (S/P/Bld) [Vol rate/Area] 38 mL/min/{1.73_m2} Low >60 [facility] Comment on above: Result Comment: These [...] By: #### B MAGY MUÑIZ, PT #### [facility] [address] [facility] [place] [address] [employer] Superintendent: Milo Engle DO Glucose [Mass/Vol] 103 mg/dL High 74-99 [facility] Comment on above: Performed By: #### B MAGY MUÑIZ, PT #### [facility] [address] [place] [address]. [place] [address] [employer] Superintendent: Milo Engle DO Potassium [Moles/Vol] 3.8 mmol/L Normal 3.7-5.3 [facility] Comment on above: Performed By: #### B MAGY MUÑIZ, PT #### [facility] [address] [place] [address]. [place] [address] [employer] Superintendent: Milo Engle DO Sodium [Moles/Vol] 144 mmol/L Normal 136-145 [facility] Comment on above: Performed By: #### B MAGY MUÑIZ, PT #### [facility] [address] [place] [address]. [place] [address] [employer] Superintendent: Milo Engle DO Urea nitrogen [Mass/Vol] 22 mg/dL Normal 8-23 [facility] Comment on above: Performed By: #### B MAGY MUÑIZ, PT #### [facility] [address] [place] [address]. [place] [address] [employer] Superintendent: Milo Engle DO Basic Metabolic Panel w/ Ref jeancarlos to MGon 10-04-2024 Anion gap [Moles/Vol] 8 mmol/L Low 9 - 16 mmol/L Bon [facility] Calcium [Mass/Vol] 8.7 mg/dL 8.6 - 10. 4 mg/dL [facility] Chloride [Moles/Vol] 109 mmol/L High 98 - 10 7 mmol/L [facility] CO2 [Moles/Vol] 27 mmol/L 20 - 31 mmol/L [facility] Creatinine [Mass/Vol] 1.8 mg/dL High 0.7 - 1.2 mg/dL [facility] Est, Glom Filt Rate 38 Low - PINF [facility] Comment on above: These results are not [...] mg/dL High 74 - 99 mg/dL [facility] Interpretation and review of laboratory results Abnormal [facility] Potassium [Moles/Vol] 3.8 mmol/L 3.7 - 5.3 mmol/L [facility] Sodium [Moles/Vol] 144 mmol/L 136 - 145 mmol/L [facility] Urea nitrogen [Mass/Vol] 22 mg/dL 8 - 23 mg/dL [facility] Blood Occult Stool Screen #1 on 10-04-2024 Date, Stool #1 [id number] [facility] Hemoglobin.gastrointest inal spec 1 Ql (Stl) Negative NEGATIVE [facility] Time, Stool #1 [id number] [facility] CBC with Auto Differentialon 10-04-2024 Basophils (Bld) [#/Vol] 0.03 10*3/uL [facility] Basophils/100 WBC (Bld) 1 % 0 - 2 % B [facility] Eosinophils (Bld) [#/Vol] 0.29 10*3/uL [facility] Eosinophils/100 WBC (Bld) 4 % 0 - 4 % [facility] Erythrocyte distribution width (RBC) [Ratio] 20 % High 11.5 - 14.9 % [facility] Hematocrit (Bld) [Volume fraction] 38.7 % Low 41.0 - 53.0 % [facility] Hemoglobin (Bld) [Mass/Vol] 11.2 g/dL Low 13.5 - 17.5 g/dL [facility] Immature granulocytes (Bld) [#/Vol] [facility] Immature granulocytes/100 WBC (Bld) 0 % 0 [facility] Interpretation and review of laboratory results Abnormal [facility] Lymphocytes/100 WBC (Bld) 17 % Low 24 - 44 % [facility] Lymphocytes/100 WBC (Bld) 1.13 % [facility] MCH (RBC) [Entitic mass] 24 pg Low 26.0 - 34.0 pg [facility] MCHC (RBC) [Mass/Vol] 28.9 g/dL Low 31.0 - 37.0 g/dL [facility] MCV (RBC) [Entitic vol] 83 fL 80.0 - 100.0 fL [facility] Monocytes/100 WBC (Bld) 15 % High 3 - 12 % B on [facility] Monocytes/100 WBC (Bld) 0.98 % B on [facility] Neutrophils/100 WBC (Bld) 63 % 36 - 66 % [facility] Nucleated RBC/100 WBC (Bld) [Ratio] 0 % 0 per 100 WBC [facility] Platelet mean volume (Bld) [Entitic vol] 10.2 fL 8.0 - 13.5 fL [facility] Platelets (Bld) [#/Vol] 195 10*3/uL [facility] RBC (Bld) [#/Vol] 4.66 10*6/uL 4.21 - 5.77 m/uL [facility] Segmented neutrophils/100 WBC (Bld) 4.2 % [facility] WBC other (Bld) [#/Vol] 6.7 B on [facility] CBC with Diffon 10-04-2024 Abs. Basophil 0.03 k/uL Normal 0.00-0.20 [facility] Comment on above: Performed By: #### B MPX, CDP, PT #### [facility] [place] [address] [employer] Superintendent: Milo Engle DO Abs.Imm.Granulocyte <0.03 Normal 0.00-0.30 [facility] Comment on above: Performed By: #### B MAGY MUÑIZ, PT #### [facility] [address] [place] [address] [employer] Superintendent: Milo Engle DO Abs.Neutrophil (Seg) 4.20 k/uL Normal 1.50-8.10 [facility] Comment on above: Performed By: #### B MAGY MUÑIZ, PT #### [facility] [address] [place] [address] [employer] Superintendent: Milo Engle DO Basophils/100 WBC (Bld) 1 % Normal 0-2 [facility] Comment on above: Performed By: #### B MAGY MUÑIZ, PT #### [facility] [address] [place] [address] [employer] Superintendent: Milo Engle DO Eosinophils (Bld) [#/Vol] 0.29 10*3/uL Normal 0.00-0.44 [facility] Comment on above: Performed By: #### B MAGY MUÑIZ, PT #### [facility] [address] [place] [address] [employer] Superintendent: Milo Engle DO Eosinophils/100 WBC (Bld) 4 % Normal 0-4 [facility] Comment on above: Performed By: #### B MAGY MUÑIZ, PT #### [facility] [address] [place] [address] [employer] Superintendent: Milo Engle DO Erythrocyte distribution width (RBC) [Ratio] 20.0 % High 11.5-14.9 [facility] Comment on above: Performed By: #### B MAGY MUÑIZ, PT #### [facility] [address] [place] [address] [employer] Superintendent: Milo Engle DO Hematocrit (Bld) [Volume fraction] 38.7 % Low 41.0-53.0 [facility] Comment on above: Performed By: #### B MAGY MUÑIZ, PT #### [facility] [address] [place] [address] [employer] Superintendent: Milo Engle DO Hemoglobin (Bld) [Mass/Vol] 11.2 g/dL Low 13.5-17.5 [facility] Comment on above: Performed By: #### B MAGY MUÑIZ, PT #### [facility] [address] [place], [place] [address] [place] [address] [employer] Superintendent: Milo Engle DO Immature granulocytes/100 WBC (Bld) 0 % Normal 0 [facility] Comment on above: Performed By: #### B MAGY MUÑIZ, PT #### [facility] [place] [address] [employer] Superintendent: Milo Engle DO Lymphocytes (Bld) [#/Vol] 1.13 10*3/uL Normal 1.10-3.70 [facility] Comment on above: Performed By: #### B MAGY MUÑIZ, PT #### [facility] [place] [address] [employer] Superintendent: Milo Engle DO Lymphocytes/100 WBC (Bld) 17 % Low 24-44 [facility] Comment on above: Performed By: #### B MAGY MUÑIZ, PT #### [facility] [place] [address] [employer] Superintendent: Milo Engle DO MCH (RBC) [Entitic mass] 24.0 pg Low 26.0-34.0 [facility] Comment on above: Performed By: #### B MAGY MUÑIZ, PT #### [facility] [address] [place] [address] [employer] Superintendent: Milo Engle DO MCHC (RBC) [Mass/Vol] 28.9 g/dL Low 31.0-37.0 [facility] Comment on above: Performed By: #### B MAGY MUÑIZ, PT #### [facility] [address] [place] [address] [employer] Superintendent: Milo Engle DO MCV (RBC) [Entitic vol] 83.0 fL Normal 80.0-100.0 [facility] Comment on above: Performed By: #### B MAGY MUÑIZ, PT #### [facility] [place] [address] [employer] Superintendent: Milo Engle DO Monocytes (Bld) [#/Vol] 0.98 10*3/uL Normal 0.10-1.20 [facility] Comment on above: Performed By: #### B MAGY MUÑIZ, PT #### [facility] [facility] [address] [employer] Superintendent: Milo Engle DO Monocytes/100 WBC (Bld) 15 % High 3-12 M [facility] Comment on above: Performed By: #### B ANTONINO CDP, PT #### [facility] [place] [address] [employer] Superintendent: Milo Engle DO Neutrophil (Seg) 63 % Normal 36-66 [facility] Comment on above: Performed By: #### B MAGY MUÑIZ, PT #### [facility] [place] [address] [employer] Superintendent: Milo Engle DO NRBC Automated 0.0 per 100 WBC Normal 0 [facility] Comment on above: Performed By: #### B MPX CDP, PT #### [facility] [address] [place] [address] [employer] Superintendent: Milo Engle DO Platelet mean volume (Bld) [Entitic vol] 10.2 fL Normal 8.0-13.5 [facility] Comment on above: Performed By: #### B MPX, CDP, PT #### [facility] [address] [place] [address] [employer] Superintendent: Milo Engle DO Platelets (Bld) [#/Vol] 195 10*3/uL Normal 150-450 [facility] Comment on above: Performed By: #### B MPJomar CDP, PT #### [facility] [place] [address] [employer] Superintendent: Milo Engle DO RBC (Bld) [#/Vol] 4.66 10*6/uL Normal 4.21-5.77 [facility] Comment on above: Performed By: #### B MAGY MUÑIZ, PT #### [facility] [place] [address] [employer] Superintendent: Milo Engle DO WBC (Bld) [#/Vol] 6.7 10*3/uL Normal 3.5-11.0 [facility] Comment on above: Performed By: #### B MPX CDP, PT #### [facility] [place] [address] [employer] Superintendent: Milo Engle DO Mycoplasma Ab, IgMon 025 Mycoplasma Ab, IgM 0.11 Normal <0.91 [facility] Comment on above: Result Comment: Reference Range: <=0.90 Negative 0.91-1.09 Equivocal >=1.10 Positive Performed By: #### O BS #### [facility] [address] [place] [address] [employer] Superintendent: Milo Engle DO Mycoplasma Ab,IgMon 10-05-19 25 M. pneumoniae IgM IA Ql (S) 0.11 NINF - 0.91 [employer] [employer] Comment on above: Reference Range: <=0.90 Negative 0.91-1.09 Equivocal >=1.10 Positive [employer] No Panel InformationOrdered By: Alex Alcala on 10-04-2024 Body surface area Derived from formula 2.04 m2 [employer] Work Phone: [employer] Work Phone: No Panel Informationon 10-04 No [...] 1.293 cm.Color flow seen in residual lumen. [employer] Developer Details A pollard scale, color Doppler imaging and spectral Doppler analysis ultrasound was performed. During the study longitudinal and transverse views were obtained. Study was technically difficult due to: bedside exam, patient positioning and edema. [facility] CV [facility] Radiology Study observation (narrative) Pepe barboza [facility] Occ Bld, Fecal Scrnon 2024 Occult Blood 1 Negative Normal NEG [facility] Comment on above: Performed By: #### O BS #### [facility] [address] [facility] [place] [address] [employer] Superintendent: Milo Engle DO Specimen 1 Date [facility] Comment on above: Performed By: #### O BS #### [facility] [address] [facility] [place] [place] [address] [employer] Superintendent: Milo Engle DO Specimen 1 Time 0836 [facility] Comment on above: Performed By: #### O BS #### [facility] [address] [facility] [place] [address] [employer] Superintendent: Milo Engle DO PTon 10-04-2024 INR Coag (PPP) [Relative time] 1.7 {INR} Normal [facility] Comment on above: Result Comment: Therapeutic Range: Moderate Anticoagulant Intensity: INR = 2.0-3.0 High Anticoagulant Intensity: INR = 2.5-3.5 Performed By: #### B MPX, CDP, PT #### [facility] [address] [place] [address] [employer] Superintendent: Milo Engle DO PT Coag (PPP) [Time] 22.0 s High 11.8-14.6 [facility] Comment on above: Performed By: #### B MPX, CDP, PT #### [facility] [address] [facility] [place] [place] [address] [employer] Superintendent: Milo Engle DO Protime-INRon 10-04-2024 INR Coag (PPP) [Relative time] 1.7 {INR} [facility] Comment on above: Therapeutic Range: Moderate Anticoagulant Intensity: INR = 2.0-3.0 High Anticoagulant Intensity: INR = 2.5-3.5 Interpretation and review of laboratory results Abnormal [facility] PT Coag (PPP) [Time] 22.0 s High [facility] B12/Folate Panelon Folic Acid 28.5 ng/mL High 4.8-24.2 [facility] Comment on above: Performed By: #### B MPX, CDP, PT #### [facility] [address] [place] [address] [employer] Superintendent: Milo Engle DO Cobalamin (Vitamin B12) [Mass/Vol] 377 pg/mL Normal 232-1245 [facility] Comment on above: Performed By: #### B MPX, CDP, PT #### [facility] [address] [place] [address] [employer] Superintendent: Milo Engle DO Basic Metab w/rfx MGon 10-03 Anion gap [Moles/Vol] 8 mmol/L Low 9-16 [facility] Comment on above: Performed By: #### B ROBYNX, MAGY, PT #### [facility] [address] [place] [address] [employer] Superintendent: Milo Engle DO Calcium [Mass/Vol] 8.3 mg/dL Low 8.6-10.4 [facility] Comment on above: Performed By: #### B ROBYNX, CDP, PT #### [facility] [address] [place] [address] [employer] Superintendent: Milo Engle DO Chloride [Moles/Vol] 110 mmol/L High 98-107 [facility] Comment on above: Performed By: #### B MPX, CDP, PT #### [facility] [address] [facility] [place] [address] [employer] Superintendent: Milo Engle DO CO2 [Moles/Vol] 24 mmol/L Normal 20-31 [facility] Comment on above: Performed By: #### B MAGY MUÑIZ, PT #### [facility] [address] [facility] [place] [address] [employer] Superintendent: Milo Engle DO Creatinine [Mass/Vol] 1.7 mg/dL High 0.7-1.2 [facility] Comment on above: Performed By: #### B MAGY MUÑIZ, PT #### [facility] [place] [address] [employer] Superintendent: Milo Engle DO GFR/1.73 sq M.predicted among non-blacks MDRD (S/P/Bld) [Vol rate/Area] 40 mL/min/{1.73_m2} Low >60 [facility] Comment on above: Result Comment: These [...] By: #### B MAGY MUÑIZ, PT #### [facility] [address] [facility] [place] [address] [employer] Superintendent: Milo Engle DO Glucose [Mass/Vol] 98 mg/dL Normal 74-99 [facility] Comment on above: Performed By: #### B MAGY MUÑIZ, PT #### [facility] [address] [facility] [place] [address] [employer] Superintendent: Milo Engle DO Potassium [Moles/Vol] 3.3 mmol/L Low 3.7-5.3 [facility] Comment on above: Performed By: #### B MPX, CDP, PT #### [facility] [address] [facility] [place] [address] [employer] Superintendent: Milo Engle DO Sodium [Moles/Vol] 142 mmol/L Normal 136-145 [facility] Comment on above: Performed By: #### B MPX, CDP, PT #### [facility] [address] [facility] [place] [address] [employer] Superintendent: Milo Engle DO Urea nitrogen [Mass/Vol] 24 mg/dL High 8-23 [facility] Comment on above: Performed By: #### B ROBYNX CDP, PT #### [facility] [address] [facility] [place] [address] [employer] Superintendent: Milo Engle DO Basic Metabolic Panel w/ Ref jeancarlos to MGon 10-03-2024 Anion gap [Moles/Vol] 8 mmol/L Low 9 - 16 mmol/L [facility] Calcium [Mass/Vol] 8.3 mg/dL Low 8.6 - 10. 4 mg/dL [facility] Chloride [Moles/Vol] 110 mmol/L High 98 - 10 7 mmol/L [facility] CO2 [Moles/Vol] 24 mmol/L 20 - 31 mmol/L [facility] Creatinine [Mass/Vol] 1.7 mg/dL High 0.7 - 1.2 mg/dL [facility] Est, Glom Filt Rate 40 Low - PINF [facility] Comment on above: These results are not [...] 98 mg/dL 74 - 99 mg/dL [facility] Interpretation and review of laboratory results Abnormal [facility] Potassium [Moles/Vol] 3.3 mmol/L Low 3.7 - 5.3 mmol/L [facility] Sodium [Moles/Vol] 142 mmol/L 136 - 145 mmol/L [facility] Urea nitrogen [Mass/Vol] 24 mg/dL High 8 - 23 mg/dL [facility] CBC with Auto Differentialon 10-03-2024 Basophils (Bld) [#/Vol] 0.06 10*3/uL [facility] Basophils/100 WBC (Bld) 1 % 0 - 2 % B on [facility] Eosinophils (Bld) [#/Vol] 0.29 10*3/uL [facility] Eosinophils/100 WBC (Bld) 5 % High 0 - 4 % [facility] Erythrocyte distribution width (RBC) [Ratio] 20.2 % High 11.5 - 14.9 % [facility] Hematocrit (Bld) [Volume fraction] 33.1 % Low 41.0 - 53.0 % [facility] Hemoglobin (Bld) [Mass/Vol] 9.9 g/dL Low 13.5 - 17.5 g/dL [facility] Immature granulocytes (Bld) [#/Vol] 0 10*3/uL [facility] Immature granulocytes/100 WBC (Bld) 0 % 0 [facility] Interpretation and review of laboratory results Abnormal [facility] Lymphocytes/100 WBC (Bld) 22 % Low 24 - 44 % [facility] Lymphocytes/100 WBC (Bld) 1.28 % [facility] MCH (RBC) [Entitic mass] 24.3 pg Low 26.0 - 34.0 pg [facility] MCHC (RBC) [Mass/Vol] 29.9 g/dL Low 31.0 - 37.0 g/dL [facility] MCV (RBC) [Entitic vol] 81.3 fL 80.0 - 100.0 fL [facility] Monocytes/100 WBC (Bld) 13 % High 3 - 12 % B on [facility] Monocytes/100 WBC (Bld) 0.75 % B on [facility] Morphology Ian (Bld) [Interp] ANISOCYTOSIS PRESENT [facility] Morphology Ian (Bld) [Interp] 1+ ECHINOCYTES [facility] Morphology Ian (Bld) [Interp] 1+ ELLIPTOCYTES [facility] Neutrophils/100 WBC (Bld) 59 % 36 - 66 % [facility] Nucleated RBC/100 WBC (Bld) [Ratio] 0 % 0 per 100 WBC [facility] Platelet mean volume (Bld) [Entitic vol] 9.6 fL 8.0 - 13.5 fL [facility] Platelets (Bld) [#/Vol] 165 10*3/uL [facility] RBC (Bld) [#/Vol] 4.07 10*6/uL Low 4.21 - 5.77 m/uL [facility] Segmented neutrophils/100 WBC (Bld) 3.42 % [facility] WBC other (Bld) [#/Vol] 5.8 B on [facility] CBC with Diffon 10-03-2024 Abs. Basophil 0.06 k/uL Normal 0.00-0.20 [facility] Comment on above: Performed By: #### B MAGY MUÑIZ, PT #### [facility] [place] [address] [employer] Superintendent: Milo Engle DO Abs.Imm.Granulocyte 0.00 k/uL Normal 0.00-0.30 [facility] Comment on above: Performed By: #### B ROBYNXMAGY, PT #### [facility] [address] [place] [address] [employer] Superintendent: Milo Engle DO Abs.Neutrophil (Seg) 3.42 k/uL Normal 1.50-8.10 [facility] Comment on above: Performed By: #### B MPXMAGY, PT #### [facility] [address] [place] [address] [employer] Superintendent: Milo Engle DO Basophils/100 WBC (Bld) 1 % Normal 0-2 M [facility] Comment on above: Performed By: #### B MPX CDP, PT #### [facility] [address] [place] [address] [employer] Superintendent: Milo Engle DO Eosinophils (Bld) [#/Vol] 0.29 10*3/uL Normal 0.00-0.44 [facility] Comment on above: Performed By: #### B MPX CDP, PT #### [facility] [address] [place] [address] [employer] Superintendent: Milo Engle DO Eosinophils/100 WBC (Bld) 5 % High 0-4 [facility] Comment on above: Performed By: #### B MPXMAGY, PT #### [facility] [address] [facility] [place] [address] [employer] Superintendent: Milo Engle DO Immature granulocytes/100 WBC (Bld) 0 % Normal 0 [facility] Comment on above: Performed By: #### B MPX CDP, PT #### [facility] [place] [facility] [place] [place] [address] [employer] Superintendent: Milo Engle DO Lymphocytes (Bld) [#/Vol] 1.28 10*3/uL Normal 1.10-3.70 [facility] Comment on above: Performed By: #### B MPX CDP, PT #### [facility] [address] [facility] [place] [place] [address] [employer] Superintendent: Milo Engle DO Lymphocytes/100 WBC (Bld) 22 % Low 24-44 [facility] Comment on above: Performed By: #### B MPX, CDP, PT #### [facility] [address] [facility] [place] [address] [employer] Superintendent: Milo Engle DO Monocytes (Bld) [#/Vol] 0.75 10*3/uL Normal 0.10-1.20 [facility] Comment on above: Performed By: #### B MPX CDP, PT #### [facility] [address] [place] [address] [employer] Superintendent: Milo Engle DO Monocytes/100 WBC (Bld) 13 % High 3-12 M [facility] Comment on above: Performed By: #### B MPX CDP, PT #### [facility] [address] [place] [address] [employer] Superintendent: Milo Engle DO Morphology Ian (Bld) [Interp] ANISOCYTOSIS PRESENT Normal [facility] Comment on above: Result Comment: 1+ ECHINOCYTES 1+ ELLIPTOCYTES Performed By: #### B MAGY MUÑIZ, PT #### [facility] [address] [place] [address] [employer] Superintendent: Milo Engle DO Neutrophil (Seg) 59 % Normal 36-66 [facility] Comment on above: Performed By: #### B MPX CDP, PT #### [facility] [address] [facility] [place] [address] [employer] Superintendent: Milo Engle DO Erythrocyte distribution width (RBC) [Ratio] 20.2 % High 11.5-14.9 [facility] Comment on above: Performed By: #### B MPX, CDP, PT #### [facility] [address] [place] [address] [employer] Superintendent: Milo Engle DO Hematocrit (Bld) [Volume fraction] 33.1 % Low 41.0-53.0 [facility] Comment on above: Performed By: #### B MPX, CDP, PT #### [facility] [address] [place] [address] [employer] Superintendent: Milo Engle DO Hemoglobin (Bld) [Mass/Vol] 9.9 g/dL Low 13.5-17.5 [facility] Comment on above: Performed By: #### B MAGY MUÑIZ, PT #### [facility] [place] [address] [employer] Superintendent: Milo Engle DO MCH (RBC) [Entitic mass] 24.3 pg Low 26.0-34.0 [facility] Comment on above: Performed By: #### B MAGY MUÑIZ, PT #### [facility] [place] [address] [employer] Superintendent: Milo Engle DO MCHC (RBC) [Mass/Vol] 29.9 g/dL Low 31.0-37.0 [facility] Comment on above: Performed By: #### B MAGY MUÑIZ, PT #### [facility] [place] [address] [employer] Superintendent: Milo Engle DO MCV (RBC) [Entitic vol] 81.3 fL Normal 80.0-100.0 M [facility] Comment on above: Performed By: #### B MAGY MUÑIZ, PT #### [facility] [address] [place] [address] [employer] Superintendent: Milo Engle DO NRBC Automated 0.0 per 100 WBC Normal 0 [facility] Comment on above: Performed By: #### B MAGY MUÑIZ, PT #### [facility] [address] [place] [address] [employer] Superintendent: Milo Engle DO Platelet mean volume (Bld) [Entitic vol] 9.6 fL Normal 8.0-13.5 [facility] Comment on above: Performed By: #### B MPX CDP, PT #### [facility] [address] [facility] [place] [place] [address] [employer] Superintendent: Milo Engle DO Platelets (Bld) [#/Vol] 165 10*3/uL Normal 150-450 [facility] Comment on above: Performed By: #### B MPXMAGY, PT #### [facility] [address] [facility] [place] [address] [employer] Superintendent: Milo Engle DO RBC (Bld) [#/Vol] 4.07 10*6/uL Low 4.21-5.77 [facility] Comment on above: Performed By: #### B ROBYNXMAGY, PT #### [facility] [address] [facility] [place] [address] [employer] Superintendent: Milo Engle DO WBC (Bld) [#/Vol] 5.8 10*3/uL Normal 3.5-11.0 [facility] Comment on above: Performed By: #### B MAGY MUÑIZ, PT #### [facility] [address] [facility] [place] [address] [employer] Superintendent: Milo Engle DO Ferritinon 10-03-2024 Ferritin [Mass/Vol] 54 ng/mL Normal [facility] Comment on above: No reference range e stablished for this age/gender. Result Comment: No r eference range established for this age/gender. Performed By: #### B ROBYNXMAGY, PT #### [facility] [address] [facility] [place] [address] [employer] Superintendent: Milo Engle DO Haptoglobinon 10-03-2024 Haptoglobin [Mass/Vol] 244 mg/dL High 30 - 200 mg/dL [facility] Haptoglobin 244 mg/dL High 30-200 [facility] Comment on above: Performed By: #### B MPX, CDP, PT #### [facility] [address] [facility] [place] [address] [employer] Superintendent: Milo Engle DO Iron Binding Cap.on 10-04-19 25 Iron [Mass/Vol] 18 ug/dL Low 61-157 [facility] Comment on above: Performed By: #### B MPXMAGY, PT #### [facility] [address] [facility] [place] [address] [employer] Superintendent: Milo Engle DO % Fe Saturation 8 % Low 20-55 [facility] Comment on above: Performed By: #### B MAGY MUÑIZ, PT #### [facility] [place] [address] [employer] Superintendent: Milo Engle DO Total Fe Binding Cap 235 ug/dL Low 250-450 [facility] Comment on above: Performed By: #### B MAGY MUÑIZ, PT #### [facility] [place] [address] [employer] Superintendent: Milo Engle DO Unbound Fe Bind Cap 217 ug/dL Normal 112-347 [facility] Comment on above: Performed By: #### B MAGY MUÑIZ, PT #### [facility] [address] [place] [address]. [place] [address] [employer] Superintendent: Milo Engle DO Iron and TIBCon 10-03-2024 Iron binding capacity [Mass/Vol] 235 ug/dL Low 250 - 450 ug/dL [facility] Iron saturation [Mass fraction] 8 % Low 20 - 55 % [facility] UIBC 217 ug/dL 112 - 347 ug/dL [facility] LEGIONELLA ANTIGEN, URINEon 10-03-2024 L. pneumophila 1 Ag IA.rapid Ql (U) Negative NEGATIVE [facility] Comment on above: L. pneumophila serog roup 1 antigen not detected. A negative result does not exclude infection with Leginella pnemophila serogroup 1 nor does it rule out other microbial-caused respiratory infections of disease caused by other serogroups of Legionella pneumophila. [facility] Lactate Dehydrogenaseon 09-23 Interpretation and review of laboratory results Abnormal [facility] LDH [Catalytic activity/Vol] 132 U/L Low 135 - 225 U/L [facility] LDH [Catalytic activity/Vol] 132 U/L Low 135-225 [facility] Comment on above: Performed By: #### B MPX, CDP, PT #### [facility] [address] [facility] [place] [address] [employer] Superintendent: Milo Engle DO Legionella Ag, Uron 10-04-19 25 Legionella Ag, Ur Negative Normal NEG [facility] Comment on above: Result Comment: L. p neumophila serogroup 1 antigen not detected. A negative result does not exclude infection with Leginella pnemophila serogroup 1 nor does it rule out other microbial-caused respiratory infections of disease caused by other serogroups of Legionella pneumophila. Performed By: #### O BS #### [facility] [address] [facility] [place] [address] [employer] Superintendent: Milo Engle DO MRSA DNA Probe, Nasalon 09-23 Specimen Description .NASAL SWAB [facility] MRSA, DNA, Nasalon 5 MRSA, DNA, Nasal Negative Normal NEG [facility] Comment on above: NEGATIVE: MRSA DNA n [...] infections. Performed By: #### O BS #### [facility] [address] [place] [address] [employer] Superintendent: Milo Engle DO Magnesiumon 10-03-2024 Magnesium [Mass/Vol] 2.2 mg/dL 1.6 - 2 .4 mg/dL [facility] Magnesium [Mass/Vol] 2.2 mg/dL Normal 1.6-2.4 [facility] Comment on above: Performed By: #### B MPX, CDP, PT #### [facility] [address] [place] [address] [employer] Superintendent: Milo Engle DO No Panel Informationon 10-03 Interpretation and review of laboratory results Abnormal [facility] PTon 10-03-2024 INR Coag (PPP) [Relative time] 1.7 {INR} Normal [facility] Comment on above: Result Comment: Therapeutic Range: Moderate Anticoagulant Intensity: INR = 2.0-3.0 High Anticoagulant Intensity: INR = 2.5-3.5 Performed By: #### B MPX, CDP, PT #### [facility] [address] [place] [address] [employer] Superintendent: Milo Engle DO PT Coag (PPP) [Time] 22.0 s High 11.8-14.6 [facility] Comment on above: Performed By: #### B MPX, CDP, PT #### [facility] [address] [place] [address] [employer] Superintendent: Milo Engle DO Protime-INRon 10-03-2024 INR Coag (PPP) [Relative time] 1.7 {INR} [facility] Comment on above: Therapeutic Range: Moderate Anticoagulant Intensity: INR = 2.0-3.0 High Anticoagulant Intensity: INR = 2.5-3.5 Interpretation and review of laboratory results Abnormal [facility] PT Coag (PPP) [Time] 22.0 s High [facility] Retic Counton 10-03-2024 Absolute Retic 0.038 M/uL Normal 0.030-0.08 0 [facility] Comment on above: Performed By: #### B MPXMAGY, PT #### [facility] [address] [facility] [place] [address] [employer] Superintendent: Milo Engle DO IRF 11.9 % Normal 2.7-18.3 [facility] Comment on above: Performed By: #### B MPXMAGY, PT #### [facility] [address] [facility] [place] [address] [employer] Superintendent: Milo Engle DO Retic Count 0.9 % Normal 0.5-2.5 [facility] Comment on above: Performed By: #### B MAGY MUÑIZ, PT #### [facility] [address] [facility] [place] [address] [employer] Superintendent: Milo Engle DO Retic Hemoglobin 23.4 pg Low 28.2-35.7 [facility] Comment on above: Performed By: #### B ROBYNXMAGY, PT #### [facility] [address] [place] [address] [employer] Superintendent: Milo Engle DO Reticulocyteson 10-03-2024 Immature reticulocytes/Total reticulocytes (Bld) 11.9 % 2.7 - 18.3 % [facility] Interpretation and review of laboratory results Abnormal [facility] Retic Hemoglobin 23.4 pg Low 28.2 - 35.7 pg [facility] Reticulocytes (Bld) [#/Vol] 0.038 10*3/uL [facility] Reticulocytes/100 RBC (Bld) 0.9 % 0.5 - 2.5 % [facility] Vitamin B12 & Folateon 10-03 Cobalamin (Vitamin B12) [Mass/Vol] 377 pg/mL 232 - 1245 pg/mL [facility] Folate [Mass/Vol] 28.5 ng/mL High 4.8 - 24.2 ng/mL [facility] Interpretation and review of laboratory results Abnormal [facility] Basic Metabolic Panelon 05- Anion gap [Moles/Vol] 11 mmol/L 9 - 16 mmol/L [facility] Calcium [Mass/Vol] 8.8 mg/dL 8.6 - 10. 4 mg/dL [facility] Chloride [Moles/Vol] 106 mmol/L 98 - 10 7 mmol/L [facility] CO2 [Moles/Vol] 24 mmol/L 20 - 31 mmol/L [facility] Creatinine [Mass/Vol] 1.9 mg/dL High 0.7 - 1.2 mg/dL [facility] Est, Glom Filt Rate 35 Low - PINF [facility] Comment on above: These results are not [...] mg/dL High 74 - 99 mg/dL [facility] Interpretation and review of laboratory results Abnormal [facility] Potassium [Moles/Vol] 3.8 mmol/L 3.7 - 5.3 mmol/L [facility] Sodium [Moles/Vol] 141 mmol/L 136 - 145 mmol/L [facility] Urea nitrogen [Mass/Vol] 22 mg/dL 8 - 23 mg/dL [facility] Basic Metabolic Profon 10-02 Anion gap [Moles/Vol] 11 mmol/L Normal 9-16 [facility] Comment on above: Performed By: #### C DP, BMP, PT, TSHX #### [facility] [address] [place] [address] [employer] Superintendent: Milo Engle DO Calcium [Mass/Vol] 8.8 mg/dL Normal 8.6-10.4 [facility] Comment on above: Performed By: #### C DP, BMP, PT, TSHX #### [facility] [address] [facility] [place] [address] [employer] Superintendent: Milo Egnle DO Chloride [Moles/Vol] 106 mmol/L Normal 98-107 [facility] Comment on above: Performed By: #### C DP, BMP, PT, TSHX #### [facility] [address] [facility] [place] [address] [employer] Superintendent: Milo Engle DO CO2 [Moles/Vol] 24 mmol/L Normal 20-31 [facility] Comment on above: Performed By: #### C DP, BMP, PT, TSHX #### [facility] [address] [facility] [place] [address] [employer] Superintendent: Milo Engle DO Creatinine [Mass/Vol] 1.9 mg/dL High 0.7-1.2 [facility] Comment on above: Performed By: #### C DP, BMP, PT, TSHX #### [facility] [place] [address] [employer] Superintendent: Milo Engle DO GFR/1.73 sq M.predicted among non-blacks MDRD (S/P/Bld) [Vol rate/Area] 35 mL/min/{1.73_m2} Low >60 [facility] Comment on above: Result Comment: These [...] #### C DP, BMP, PT, TSHX #### [facility] [address] [facility] [place] [place] [address] [employer] Superintendent: Milo Engle DO Glucose [Mass/Vol] 105 mg/dL High 74-99 [facility] Comment on above: Performed By: #### C DP, BMP, PT, TSHX #### [facility] [address] [place] [address] [employer] Superintendent: Milo Engle DO Potassium [Moles/Vol] 3.8 mmol/L Normal 3.7-5.3 [facility] Comment on above: Performed By: #### C DP, BMP, PT, TSHX #### [facility] [address] [place] [address] [employer] Superintendent: Milo Engle DO Sodium [Moles/Vol] 141 mmol/L Normal 136-145 [facility] Comment on above: Performed By: #### C DP, BMP, PT, TSHX #### [facility] [place] [address] [employer] Superintendent: Milo Engle DO Urea nitrogen [Mass/Vol] 22 mg/dL Normal 8-23 [facility] Comment on above: Performed By: #### C DP, BMP, PT, TSHX #### [facility] [address] [place] [address] [employer] Superintendent: Milo Engle DO CBC with Auto Differentialon 10-02-2024 Basophils (Bld) [#/Vol] 0 10*3/uL B on [facility] Basophils/100 WBC (Bld) 0 % 0 - 2 % B on [facility] Eosinophils (Bld) [#/Vol] 0.07 10*3/uL Bon [facility] Eosinophils/100 WBC (Bld) 1 % 0 - 4 % Bon [facility] Erythrocyte distribution width (RBC) [Ratio] 20.6 % High 11.5 - 14.9 % [facility] Hematocrit (Bld) [Volume fraction] 38.8 % Low 41.0 - 53.0 % [facility] Hemoglobin (Bld) [Mass/Vol] 11 g/dL Low 13.5 - 17.5 g/dL [facility] Immature granulocytes (Bld) [#/Vol] 0.07 10*3/uL [facility] Immature granulocytes/100 WBC (Bld) 1 % High 0 [facility] Interpretation and review of laboratory results Abnormal [facility] Lymphocytes/100 WBC (Bld) 13 % Low 24 - 44 % [facility] Lymphocytes/100 WBC (Bld) 0.95 % Low [facility] MCH (RBC) [Entitic mass] 24.3 pg Low 26.0 - 34.0 pg [facility] MCHC (RBC) [Mass/Vol] 28.4 g/dL Low 31.0 - 37.0 g/dL [facility] MCV (RBC) [Entitic vol] 85.7 fL 80.0 - 100.0 fL [facility] Monocytes/100 WBC (Bld) 14 % High 3 - 12 % B on [facility] Monocytes/100 WBC (Bld) 1.02 % B on [facility] Morphology Ian (Bld) [Interp] ANISOCYTOSIS PRESENT [facility] Morphology Ian (Bld) [Interp] 1+ ELLIPTOCYTES [facility] Morphology Ian (Bld) [Interp] 1+ ECHINOCYTES [facility] Neutrophils/100 WBC (Bld) 71 % High 36 - 66 % [facility] Nucleated RBC/100 WBC (Bld) [Ratio] 0 % 0 per 100 WBC [facility] Platelet mean volume (Bld) [Entitic vol] 10 fL 8.0 - 13.5 fL [facility] Platelets (Bld) [#/Vol] 245 10*3/uL [facility] RBC (Bld) [#/Vol] 4.53 10*6/uL 4.21 - 5.77 m/uL [facility] Segmented neutrophils/100 WBC (Bld) 5.19 % Bon [facility] WBC other (Bld) [#/Vol] 7.3 B on [facility] Bon [facility] CBC with Diffon 10-02-2024 Abs. Basophil 0.00 k/uL Normal 0.00-0.20 [facility] Comment on above: Performed By: #### C DP, BMP, PT, TSHX #### [facility] [address] [place] [address] [employer] Superintendent: Milo Engle DO Abs.Imm.Granulocyte 0.07 k/uL Normal 0.00-0.30 [facility] Comment on above: Performed By: #### C DP, BMP, PT, TSHX #### [facility] [place] [address] [employer] Superintendent: Milo Engle DO Abs.Neutrophil (Seg) 5.19 k/uL Normal 1.50-8.10 [facility] Comment on above: Performed By: #### C DP, BMP, PT, TSHX #### [facility] [place] [address] [employer] Superintendent: Milo Engle DO Basophils/100 WBC (Bld) 0 % Normal 0-2 [facility] Comment on above: Performed By: #### C DP, BMP, PT, TSHX #### [facility] [address] [place] [address] [employer] Superintendent: Milo Engle DO Eosinophils (Bld) [#/Vol] 0.07 10*3/uL Normal 0.00-0.44 [facility] Comment on above: Performed By: #### C DP, BMP, PT, TSHX #### [facility] [place] [address] [employer] Superintendent: Milo Engle DO Eosinophils/100 WBC (Bld) 1 % Normal 0-4 [facility] Comment on above: Performed By: #### C DP, BMP, PT, TSHX #### [facility] [address] [place] [address] [employer] Superintendent: Milo Engle DO Immature granulocytes/100 WBC (Bld) 1 % High 0 [facility] Comment on above: Performed By: #### C DP, BMP, PT, TSHX #### [facility] [address] [place] [address] [employer] Superintendent: Milo Engle DO Lymphocytes (Bld) [#/Vol] 0.95 10*3/uL Low 1.10-3.70 [facility] Comment on above: Performed By: #### C DP, BMP, PT, TSHX #### [facility] [place] [address] [employer] Superintendent: Milo Engle DO Lymphocytes/100 WBC (Bld) 13 % Low 24-44 [facility] Comment on above: Performed By: #### C DP, BMP, PT, TSHX #### [facility] [address] [facility] [place] [address] [employer] Superintendent: Milo Engle DO Monocytes (Bld) [#/Vol] 1.02 10*3/uL Normal 0.10-1.20 [facility] Comment on above: Performed By: #### C DP, BMP, PT, TSHX #### [facility] [address] [place] [address] [employer] Superintendent: Milo Engle DO Monocytes/100 WBC (Bld) 14 % High 3-12 M [facility] Comment on above: Performed By: #### C DP, BMP, PT, TSHX #### [facility] [place] [address] [employer] Superintendent: Milo Engle DO Morphology Ian (Bld) [Interp] ANISOCYTOSIS PRESENT Normal [facility] Comment on above: Result Comment: 1+ ELLIPTOCYTES 1+ ECHINOCYTES Performed By: #### C DP, BMP, PT, TSHX #### [facility] [address] [place] [address] [employer] Superintendent: Milo Engle DO Neutrophil (Seg) 71 % High 36-66 [facility] Comment on above: Performed By: #### C DP, BMP, PT, TSHX #### [facility] [address] [place] [address] [employer] Superintendent: Milo Engle DO Erythrocyte distribution width (RBC) [Ratio] 20.6 % High 11.5-14.9 [facility] Comment on above: Performed By: #### C DP, BMP, PT, TSHX #### [facility] [address] [place] [address] [employer] Superintendent: Milo Engle DO Hematocrit (Bld) [Volume fraction] 38.8 % Low 41.0-53.0 [facility] Comment on above: Performed By: #### C DP, BMP, PT, TSHX #### [facility] [address] [place] [address] [employer] Superintendent: Milo Engle DO Hemoglobin (Bld) [Mass/Vol] 11.0 g/dL Low 13.5-17.5 [facility] Comment on above: Performed By: #### C DP, BMP, PT, TSHX #### [facility] [address] [place] [address] [employer] Superintendent: Milo Engle DO MCH (RBC) [Entitic mass] 24.3 pg Low 26.0-34.0 [facility] Comment on above: Performed By: #### C DP, BMP, PT, TSHX #### [facility] [address] [place] [address] [employer] Superintendent: Milo Engle DO MCHC (RBC) [Mass/Vol] 28.4 g/dL Low 31.0-37.0 [facility] Comment on above: Performed By: #### C DP, BMP, PT, TSHX #### [facility] [place] [address] [employer] Superintendent: Milo Engle DO MCV (RBC) [Entitic vol] 85.7 fL Normal 80.0-100.0 M [facility] Comment on above: Performed By: #### C DP, BMP, PT, TSHX #### [facility] [place] [address] [employer] Superintendent: Milo Engle DO NRBC Automated 0.0 per 100 WBC Normal 0 [facility] Comment on above: Performed By: #### C DP, BMP, PT, TSHX #### [facility] [place] [address] [employer] Superintendent: Milo Engle DO Platelet mean volume (Bld) [Entitic vol] 10.0 fL Normal 8.0-13.5 [facility] Comment on above: Performed By: #### C DP, BMP, PT, TSHX #### [facility] [address] [place] [address] [employer] Superintendent: Milo Engle DO Platelets (Bld) [#/Vol] 245 10*3/uL Normal 150-450 [facility] Comment on above: Performed By: #### C DP, BMP, PT, TSHX #### [facility] [place] [address] [employer] Superintendent: Milo Engle DO RBC (Bld) [#/Vol] 4.53 10*6/uL Normal 4.21-5.77 [facility] Comment on above: Performed By: #### C DP, BMP, PT, TSHX #### [facility] [address] [place] [address] [employer] Superintendent: Milo Engle DO WBC (Bld) [#/Vol] 7.3 10*3/uL Normal 3.5-11.0 [facility] Comment on above: Performed By: #### C DP, BMP, PT, TSHX #### [facility] [address] [place] [address] [employer] Superintendent: Milo Engle DO MRSA, DNA, Nasalon Specimen Description .NASAL SWAB Normal [facility] Comment on above: Performed By: #### O BS #### [facility] [place] [address] [employer] Superintendent: Milo Engle DO No Panel Informationon 10-[address] [facility] PTon 10-02-2024 INR Coag (PPP) [Relative time] 1.9 {INR} Normal [facility] Comment on above: Result Comment: Therapeutic Range: Moderate Anticoagulant Intensity: INR = 2.0-3.0 High Anticoagulant Intensity: INR = 2.5-3.5 Performed By: #### C DP, BMP, PT, TSHX #### [facility] [place] [address] [employer] Superintendent: Milo Engle DO PT Coag (PPP) [Time] 23.2 s High 11.8-14.6 [facility] Comment on above: Performed By: #### C DP, BMP, PT, TSHX #### [facility] [address] [place] [address] [employer] Superintendent: Milo Engle DO Procalcitoninon 10-02-2024 Procalcitonin [Mass/Vol] 0.08 ng/mL 0.00 - 0.09 ng/mL [facility] Comment on above: Suspected Sepsis: <0.50 [...] entered into the Change in Procalcitonin Calculator (www.cfalnw-vaj-qqepsabfnn.Chooos) to determine the patient's Mortality Risk Prognosis In healthy neonates, plasma Procalcitonin (PCT) concentrations increase gradually after , reaching peak values at about 24 hours of age then decrease to normal values below 0.5 ng/mL by 48-72 hours of age. [facility] Procalcitonin 0.08 ng/mL Normal 0.00-0.09 [facility] Comment on above: Result Comment: Suspected [...] entered into the Change in Procalcitonin Calculator ([employer]zmjwsx-cgu-gkppasaihc.Chooos) to determine the patient's Mortality Risk Prognosis In healthy neonates, plasma Procalcitonin (PCT) concentrations increase gradually after , reaching peak values at about 24 hours of age then decrease to normal values below 0.5 ng/mL by 48-72 hours of age. Performed By: #### M YCM #### [address] [address] Power And Recovery Superintendent: Loi Oliver MD #### PRCAL #### [facility] [address] [place] [address] Power And Recovery Superintendent: Milo Engle DO Protime-INRon 10-02-2024 INR Coag (PPP) [Relative time] 1.9 {INR} [facility] Comment on above: Therapeutic Range: Moderate Anticoagulant Intensity: INR = 2.0-3.0 High Anticoagulant Intensity: INR = 2.5-3.5 Interpretation and review of laboratory results Abnormal [facility] PT Coag (PPP) [Time] 23.2 s High [facility] Resp Viral Panelon Adenovirus Not detected Normal [facility] Comment on above: Performed By: #### R LEATHER POLISHER #### [facility] [address] [place] [address] [employer] And Recovery Superintendent: Mlio Engle DO [address] [address] Power And Recovery Superintendent: MD Patricia Correiat.parapertussis Not detected Normal [facility] Comment on above: Performed By: #### R LEATHER POLISHER #### [facility] [place] [address] Power And Recovery Superintendent: Milo Engle DO [address] [address] [employer] And Recovery Superintendent: MD Tawny Correiadetella pertussis Not detected Normal [facility] Comment on above: Performed By: #### R LEATHER POLISHER #### [facility] [address] [place] [address] [employer] And Recovery Superintendent: Milo Engle DO [address] [address] [employer] And Recovery Superintendent: Loi Oliver MD Chlamyd.pneumoniae Not detected Normal [facility] Comment on above: Performed By: #### R LEATHER POLISHER #### [facility] [address] [place] [address] [employer] And Recovery Superintendent: Milo Engle [address] [address] [employer] And Recovery Superintendent: Loi Oliver MD Coronavirus 229E Not detected Normal [facility] Comment on above: Performed By: #### R LEATHER POLISHER #### [facility] [address] [place] [address] [employer] And Recovery Superintendent: Milo Engle [address] [address] [employer] And Recovery Superintendent: Loi Oliver MD Coronavirus HKU1 Not detected Normal [facility] Comment on above: Performed By: #### R LEATHER POLISHER #### [facility] [address] [place] [address] [employer] And Recovery Superintendent: Milo Engle [address] [address] [employer] And Recovery Superintendent: Loi Oliver MD Coronavirus NL63 Not detected Normal [facility] Comment on above: Performed By: #### R LEATHER POLISHER #### [facility] [address] [place] [address] [employer] And Recovery Superintendent: Milo Engle [address] [address] [employer] And Recovery Superintendent: Loi Oliver MD Coronavirus OC43 Not detected Normal [facility] Comment on above: Performed By: #### R LEATHER POLISHER #### [facility] [address] [place] [address] [employer] And Recovery Superintendent: Milo Engle [address] [address] [employer] And Recovery Superintendent: Loi Oliver MD Human Metapneumo Detected Abnormal [facility] Comment on above: Performed By: #### R LEATHER POLISHER #### [facility] [address] [place] [address] [employer] And Recovery Superintendent: Milo Engle [address] [address] [employer] And Recovery Superintendent: Loi Oliver MD Influenza A Not detected Normal [facility] Comment on above: Performed By: #### R LEATHER POLISHER #### [facility] [address] [place] [address] [employer] And Recovery Superintendent: Milo Engle [address] [address] [employer] And Recovery Superintendent: Loi Oliver MD Influenza B Not detected Normal [facility] Comment on above: Performed By: #### R LEATHER POLISHER #### [facility] [address] [place] [address] Power And Recovery Superintendent: Milo Engle [address] [address] Power And Recovery Superintendent: Loi Oliver MD Mycoplas.pneumoniae Not detected Normal [facility] Comment on above: Result Comment: Perf ormed by multiplexed nucleic acid assay. Performed By: #### R LEATHER POLISHER #### [facility] [address] [place] [address] Power And Recovery Superintendent: Milo Engle [address] [address] [employer] And Recovery Superintendent: Loi Oliver MD Parainfluenza 1 Not detected Normal [facility] Comment on above: Performed By: #### R LEATHER POLISHER #### [facility] [address] [place] [address] [employer] And Recovery Superintendent: Milo Engle [address] [address] Power And Recovery Superintendent: Loi Oliver MD Parainfluenza 2 Not detected Normal [facility] Comment on above: Performed By: #### R LEATHER POLISHER #### [facility] [address] [place] [address] [employer] And Recovery Superintendent: Milo Engle [address] [address] [employer] And Recovery Superintendent: Loi Oliver MD Parainfluenza 3 Not detected Normal [facility] Comment on above: Performed By: #### R LEATHER POLISHER #### [facility] [address] [place] [address] [employer] And Recovery Superintendent: Milo Engle [address] [address] Power And Recovery Superintendent: Loi Oliver MD Parainfluenza 4 Not detected Normal [facility] Comment on above: Performed By: #### R LEATHER POLISHER #### [facility] [address] [place] [address] [employer] And Recovery Superintendent: Milo Engle [address] [address] Power And Recovery Superintendent: Loi Oliver MD Resp Syncytial Virus Not detected Normal [facility] Comment on above: Performed By: #### R LEATHER POLISHER #### [facility] [address] [place] [address] Power And Recovery Superintendent: Milo Engle [address] [address] [employer] And Recovery Superintendent: Loi Oliver MD Rhino/Enterovirus Not detected Normal [facility] Comment on above: Performed By: #### R LEATHER POLISHER #### [facility] [address] [facility] [place] [address] Power And Recovery Superintendent: Milo Engle [address] [address] [employer] And Recovery Superintendent: Loi Oliver MD SARS-CoV-2 (COVID-19) RNA KARI+probe Ql (Unsp spec) Not detected Normal [facility] Comment on above: Performed By: #### R LEATHER POLISHER #### [facility] [address] [facility] [place] [address] [employer] And Recovery Superintendent: Milo Engle [address] [address] [employer] And Recovery Superintendent: Loi Oliver MD Source: .NASOPHARYNGEAL SWAB Normal [facility] Comment on above: Performed By: #### R LEATHER POLISHER #### [facility] [address] [place] [address] [employer] And Recovery Superintendent: Milo Engle [address] [address] [employer] And Recovery Superintendent: Loi Oliver MD Respiratory Panel, Molecular , with COVID-19 (Restricted: peds pts or suitable admitted adults)on 10-02-2024 Adenovirus DNA KARI+non-probe Ql (Nph) Not detected Not Detected [facility] B. parapertussis [id number] DNA KARI+non-probe Ql (Nph) Not detected Not Detected [facility] B. pertussis DNA KARI+probe Ql (Unsp spec) Not detected Not Detected [facility] C. pneumoniae DNA KARI+non-probe Ql (Nph) Not detected Not Detected [facility] FLUAV RNA KARI+non-probe Ql (Nph) Not detected Not Detected [facility] FLUBV RNA KARI+non-probe Ql (Nph) Not detected Not Detected [facility] HCoV 229E RNA KARI+non-probe Ql (Nph) Not detected Not Detected [facility] HCoV HKU1 RNA KARI+non-probe Ql (Nph) Not detected Not Detected [facility] HCoV NL63 RNA KARI+non-probe Ql (Nph) Not detected Not Detected [facility] HCoV OC43 RNA KARI+non-probe Ql (Nph) Not detected Not Detected [facility] hMPV RNA KARI+non-probe Ql (Nph) Detected Abnormal Not Detected [facility] Interpretation and review of laboratory results Abnormal [facility] M. pneumoniae DNA KARI+non-probe Ql (Nph) Not detected Not Detected [facility] Comment on above: Performed by [employer] nucleic acid assay. Parainfluenza virus 1 RNA KARI+non-probe Ql (Nph) Not detected Not Detected [facility] Parainfluenza virus 2 RNA KARI+non-probe Ql (Nph) Not detected Not Detected [facility] Parainfluenza virus 3 RNA KARI+non-probe Ql (Nph) Not detected Not Detected [facility] Parainfluenza virus 4 RNA KARI+non-probe Ql (Nph) Not detected Not Detected [facility] Rhinovirus+Enterovirus RNA KARI+non-probe Ql (Nph) Not detected Not Detected [facility] RSV RNA KARI+non-probe Ql (Nph) Not detected Not Detected [facility] SARS-CoV-2 (COVID-19) RNA KARI+non-probe Ql (Nph) Not detected Not Detected [facility] Specimen Description .NASOPHARYNGEAL SWAB [facility] TSH reflex to FT4on 10-03-19 25 TSH Qn 1.29 m[IU]/L [facility] TSH w/reflex to FT4on 2024 Thyroid Stim. Horm. 1.29 uIU/mL Normal 0.27-4.20 [facility] Comment on above: Performed By: #### C DP, BMP, PT, TSHX #### [facility] [address] [place] [address] [employer] And Recovery Superintendent: Milo Engle, Urinalysis w/ Microon 2024 Bacteria FEW Abnormal NONE [facility] Comment on above: Performed By: #### O BS #### [facility] [address] [place] [address] [employer] Recovery Superintendent: Milo Engle DO Bilirubin, SemiQt,Ur Negative Normal NEG [facility] Comment on above: Performed By: #### O BS #### [facility] [address] [place] [address] [employer] Recovery Superintendent: Milo Engle DO Blood, Urine TRACE Abnormal NEG [facility] Comment on above: Performed By: #### O BS #### [facility] [address] [place] [address] [employer] Superintendent: Milo Engle DO Casts 6 TO 9 Abnormal NONE [facility] Comment on above: Performed By: #### O BS #### [facility] [address] [place] [address] [employer] And Recovery Superintendent: Milo Engle DO Clarity (U) Clear Normal CLEAR [facility] Comment on above: Performed By: #### O BS #### [facility] [address] [place] [address] [employer] Recovery Superintendent: Milo Engle DO Color (U) Yellow Normal YEL [facility] Comment on above: Performed By: #### O BS #### [facility] [address] [place] [address] [employer] And Recovery Superintendent: Milo Engle DO Epithelial cells LM Ql (Urine sed) 0 TO 2 Normal [facility] Comment on above: Performed By: #### O BS #### [facility] [address] [place] [address] [employer] And Recovery Superintendent: Milo Engle DO Glucose Ql (U) Negative Normal NEG [facility] Comment on above: Performed By: #### O BS #### [facility] [address] [facility] [place] [address] [employer] And Recovery Superintendent: Milo Engle DO Ketones Ql (U) Negative Normal NEG [facility] Comment on above: Performed By: #### O BS #### [facility] [address] [facility] [place] [address] [employer] And Recovery Superintendent: Milo Engle DO Leukocyte esterase Test strip Ql (U) MOD Abnormal NEG [facility] Comment on above: Performed By: #### O BS #### [facility] [address] [place] [address] [employer] Recovery Superintendent: Milo Engle DO Nitrite,Ur Positive Abnormal NEG [facility] Comment on above: Performed By: #### O BS #### [facility] [address] [place] [address] [employer] Recovery Superintendent: Milo Engle DO PH,Ur 6.0 Normal 5.0-8.0 [facility] Comment on above: Performed By: #### O BS #### [facility] [address] [place] [address]. [place] [address] [employer] And Recovery Superintendent: Milo Engle DO Protein Ql (U) 1+ mg/dL Abnormal NEG [facility] Comment on above: Performed By: #### O BS #### [facility] [address] [place] [address] [employer] And Recovery Superintendent: Milo Engle DO Spec. [place],Ur 1.017 Normal 1.000-1.03 0 [facility] Comment on above: Performed By: #### O BS #### [facility] [address] [place] [address] [employer] And Recovery Superintendent: Milo Engle DO Urine RBC's 6 TO 9 Abnormal R02 [facility] Comment on above: Performed By: #### O BS #### [facility] [address] [facility] [place] [address] [employer] And Recovery Superintendent: Milo Engle DO Urine WBC's 51 TO 100 Abnormal R05 [facility] Comment on above: Performed By: #### O BS #### [facility] [address] [facility] [place] [address] [employer] And Recovery Superintendent: Milo Engle DO Urobilinogen,Ur Normal Normal 0.0-1.0 [facility] Comment on above: Performed By: #### O BS #### [facility] [address] [facility] [place] [address] [employer] And Recovery Superintendent: Milo Engle DO Urinalysis with Microscopico n 10-02-2024 Bacteria LM Ql (Urine sed) FEW Abnormal None [facility] Bilirubin Ql (U) Negative NEGATIVE [facility] Casts LM.LPF (Urine sed) [#/Area] 6 TO 9 Abnormal None /LPF [facility] Clarity (U) Clear Clear [facility] Color (U) Yellow Yellow [facility] Epithelial cells LM.HPF (Urine sed) [#/Area] 0 TO 2 /HPF [facility] Glucose Test strip (U) [Mass/Vol] Negative NEGATIVE mg/dL [facility] Hemoglobin Auto test strip Ql (U) TRACE Abnormal NEGATIVE [facility] Interpretation and review of laboratory results Abnormal [facility] Ketones (U) [Mass/Vol] Negative NEGAT BUZZ mg/dL [facility] Leukocyte esterase Test strip Ql (U) MOD Abnormal NEGATIVE [facility] Nitrite Ql (U) Positive Abnormal NEGATIVE [place] [facility] pH (U) 6 [pH] 5.0 - 8.0 [facility] Protein (U) [Mass/Vol] 1+ Abnormal NEGAT BUZZ mg/dL [facility] RBC LM.HPF (Urine sed) [#/Area] 6 TO 9 Abnormal 0 TO 2 /HPF [facility] Specific gravity (U) [Rel density] 1.017 1.000 - 1.030 [facility] Urobilinogen Qn (U) Normal 0.0 - 1. 0 EU/dL [facility] WBC LM.HPF (Urine sed) [#/Area] 51 TO 100 Abnormal 0 TO 5 /HPF [facility] Urine Cultureon 10-01-2024 Bacteria identified Cx Nom (U) ORGANISM: Klebsiella oxytoca (O:KLEOXY) [place] Count >100,000 ORGANISM: Enterobacter cloacae complex (O:ENTCLOCPLX) [place] Count >100,000 Aerobic RITESH Charge (NMIC56) SUSCEPTIBILITY [...] RESISTANT TO ALL B-LACTAM DRUGS. PERFORMED BY: [place] [address] PATHOLOGIST RIVETER PNEUMATIC ED Weir [facility] Comment on above: Performed By: #### A MAISHA GIFFORDU #### [address] Urine cultureOrdered By: Freddie Hansen on 10-01-2024 Bacteria identified Cx Nom (U) Abnormal [facility] Bacteria identified Cx Nom (U) Abnormal [facility] US aortaon 09-30-2024 US aorta [facility] [address] [place] [address] Ultrasound Report Signed Patient: Alex Anderson MR#: [id number] : 1945 Acct:[id number] Age/Sex: 78 / M ADM Date: 09/23/24 Loc: [facility] Room: Type: [facility] Attending Dr: Margarito Valentine MD Ordering Provider: [...] ANEURYSM SAC. Impression dictated by: Margarito Valentine MD,IVETT,JUDITH 09/30/2024 8:31 AM Dictation Location: RADDOC-04 Tech: Juani Steward Transcribed By: LIONEL 09/30/248[address] Dictated By: Margarito Valentine MD 09/30/24829 Signed By: 09/30/248[address] Normal [facility] US arterial duplex LE BIon 0 09-30-2024 US arterial duplex LE BI [facility] [address] [place] [address] Ultrasound Report Signed Patient: Alex Anderson MR#: [id number] [birth year] : 1945 Acct:[id number] Age/Sex: 78 / M ADM Date: 09/23/24 Loc: [facility] Room: Type: [facility] Attending Dr: Margarito Valentine MD Ordering Provider: Margarito Valentine MD Date of Service: 09/23/24 US/US arterial duplex LE BI: I72.4 - Aneurysm of artery of lower extremity Copies to: Margarito Vlaentine MD Bilateral lower extremity arterial duplex evaluation INDICATION: Popliteal artery aneurysm FINDINGS: Left lower extremity: The popliteal artery measured 2.3 cm in maximum diameter. Flow was identified. Right lower extremity: The diameter of the right popliteal artery was normal. Flow is normal. US/US arterial duplex LE BI IMPRESSION: Positive study for left popliteal artery aneurysm. Impression dictated by: Margarito Valentine MD,IVETT,[facility] 09/30/2024 8:30 AM Dictation Location: RADDOC-04 Tech: Juani Steward Transcribed By: LIONEL 09/30/24829 Dictated By: Margarito Valentine MD 09/30/24828 Signed By: 09/30/24829 Normal [facility] Urine Cultureon 09-28-2024 Bacteria identified Cx Nom (U) ORGANISM: Enterobacter cloacae complex (O:ENTCLOCPLX) [place] Count >100,000 ORGANISM: Enterobacter cloacae complex (O:ENTCLOCPLX) [place] Count >100,000 Aerobic RITESH Charge (NMIC56) SUSCEPTIBILITY [...] RESISTANT TO ALL B-LACTAM DRUGS. PERFORMED BY: [facility] [place] [facility] [address] [place] [address] PATHOLOGIST RIVETER PNEUMATIC ED CRUZ M.D. Normal [facility] Comment on above: Performed By: #### A DDONUAPLUS, CUU #### [facility] [address] Urine cultureOrdered By: Carolina bonilla Diab on 09-28-2024 Bacteria identified Cx Nom (U) Abnormal [facility] Urinalysis macro (dipstick) panel (U)on 09-21-2024 Bilirubin, UA Negative Negative - 4(70) +++ mg/dL [facility] Blood, UA Negative Negative - 50 Fletcher/mcL [facility] Clarity, UA Clear [facility] Color, UA Yellow [facility] Glucose, UA Negative Negative - 2000(110) ++++ mg/dL [facility] Interpretation and review of laboratory results Abnormal [facility] Ketones, UA Positive Negative - 160(16) ++++ mg/dL [facility] Leukocytes, UA Negative Negative - 500+++ Ed/mcL [facility] Nitrite, UA Negative Negative - Positive [facility] pH, UA 6 5 - 9 [facility] Protein, UA Positive Negative - 2000(20) ++++ mg/dL [facility] Spec Grav, UA 1.025 1 - 1.03 [facility] Urobilinogen, UA 0.2 0.2 - 12 mg/dL [facility] ECG 12 Leadon 09-10-2024 ECG revealed normal sinus rhythm, right axis deviation, IVCD, 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 [address]- Medications What How Much When Instructions Unchanged [...] you for choosing us for your care. [facility] ITPon 09-05-2024 [place] [address] Cardiac Rehab Report Signed Patient: ALEX ANDERSON MR#: [id number] : 1945 Acct:[id number] Age/Sex: 78 / M ADM Date: 08/23/24 Loc: CR Attending Dr: TEO AL Ordering Physician: Martita Garnica D.O. Date of Service: 08/23/24 Procedure(s): ITP Accession Number(s): [id number] cc: [facility] Test Date: 2024-08-23 Pat Name: ALEX ANDERSON Department: Room: - Gender: Male Superintendent Pressure: : 1945 Requested By: MARTITA GARNICA Order Number: [id number] Reading MD: MARTITA GARNICA Interpretive Statements Session Date: Electronically Signed On 09-05-2024 19:58:42 EDT by MARTITA GARNICA Dictated By: Martita Garnica D.O. Signed By: 09/05/24195809/05/241958 DD/ 1441 TD/TT: Senior Internal Auditor: [facility] Radiology, Radiologi MD bobby - 09/05/2024 [place] [address] Cardiac Rehab Report Signed Patient: ALEX ANDERSON MR#: [id number] : 1945 Acct:[id number] Age/Sex: 78 / M ADM Date: 08/23/24 Loc: CR Attending Dr: TEO AL Ordering Physician: Martita Garnica D.O. Date of Service: 08/23/24 Procedure(s): ITP Accession Number(s): [id number] cc: [facility] Test Date: 2024-08-23 Pat Name: ALEX ANDERSON Department: Room: - Gender: Male Superintendent Pressure: : 1945 Requested By: MARTITA GARNICA Order Number: [id number] Reading MD: MARTITA GARNICA Interpretive Statements Session Date: Electronically Signed On 09-05-2024 19:58:42 EDT by MARTITA GARNICA Dictated By: Martita Garnica D.O. Signed By: 09/05/24195809/05/241958 DD/ TD/TT: Senior Internal Auditor: [facility] ITPOrdered By: Radiologist R adiology on 09-05-2024 [facility] Work Phone: ALL LIPID PROFILE (FASTING)o n 09-02-2024 CHOL HDL RATIO 2 [facility] Comment on above: 3.3 - 4.4 LOW RISK 4.4 - 7.1 AVERAGE RISK 7.1 - 11.0 MODERATE RISK >11.0 HIGH RISK Cholesterol [Mass/Vol] 86 mg/dL NINF - 200 mg/dL [facility] Cholesterol in HDL [Mass/Vol] 43 mg/dL 40 - 60 mg/dL [facility] Comment on above: > or =60 mg/dl - LOW CARDIOVASCULAR RISK <40 mg/dl - HIGH CARDIOVASCULAR RISK Magnesium [Mass/Vol] 26.8 mg/dL [facility] Comment on above: <100 mg/dl OPTIMAL 100-129 mg/dl NEAR OR ABOVE OPTIMAL 130-159 mg/dl BORDERLINE HIGH 160-189 mg/dl HIGH >190 mg/dl VERY HIGH Magnesium [Mass/Vol] 16.2 mg/dL [facility] Triglyceride [Mass/Vol] 81 mg/dL NINF - 150 mg/dL [facility] ALL THYROID STIM HORMONEon 0 4-10-2025 TSH Qn 0.537 m[IU]/L [facility] No Panel Informationon 09-02 CLINISYNC [facility] ITPon 08-23-2024 Radiology Study observation (narrative) [facility] Ambulatory Visit Summaryon 0 08-12-2024 Ambulatory Visit Summary Ambulatory Visit Summary ALEX ANDERSON :1945 Visit Date:08/12/2024 Ambulatory Visit Instructions Your [...] With: Fabi Antonio Where: [facility] [address] [place] [address]- Friday 2:00 PM EDT With: Katia JACOBS MD Where: [facility] [address] [place] [address]- Medications What How Much When Instructions Unchanged [...] for choosing us for your care. Normal [facility] TRANSTHORACIC ECHO (TTE) JIM Hagen 08-06-2024 TRANSTHORACIC ECHO (TTE) LIMITED [address], [address], [place] [id number] TRANSTHORACIC ECHOCARDIOGRAM REPORT Patient Name: ALEX Sawyer Physician: [id number] Ana Castro MD Study Date: 08/06/2024 Ordering Provider: [id number] TEO AL MRN/PID: [id number] Fellow: Nurse: Date of /Age: 7 1945 / 78 years Quality Assurance Associate: Marlyn Castro RDCS, RT(R), RDMS, RVT Gender Assigned at M Additional Staff: : Height: 187.96 cm Admit Date: Weight: 92.53 kg Admission Status: Outpatient BSA / BMI: 2.19 m2 / 26.19 Department Location: [facility] Heart kg/m2 [place] Blood Pressure: 98 /64 mmHg Study Type: TRANSTHORACIC ECHO (TTE) LIMITED Diagnosis/ICD: Atherosclerotic heart disease of [place] coronary artery without angina pectoris-I25.10; ST elevation (STEMI) myocardial infarction of unspecified site-I21.3 Indication: STEMI CPT Codes: Echo Limited-63670 Patient History: Smoker: Former. Pertinent History: A-Fib, [...] 0.6 m/s (0.6-0.9m/s) PV Max P.6 mmHg 24750 Ana Castro MD Electronically signed on 08/11/2024 at 5:54:03 PM Final [facility] C Urineon 08-02-2024 Bacteria identified Cx Nom [...] Locations R1: This test was performed at: [facility], [address] [place] [address], [address]- , [place], Normal [facility] Comment on above: Performed By: #### 2 [id number] #### [facility] [address] [place] [address] Erythrocyte distribution wid th Auto (RBC) [Ratio]on 08-02-2024 Erythrocyte distribution width (RBC) [Ratio] Erythrocyte distribution width [Ratio] by Automated count High 11.0-15.0 [facility] Estimated glomerular filtrat ion rate (GFR) non- Americanon 08-02-2024 GFR/1.73 sq M.predicted among non-blacks MDRD (S/P/Bld) [Vol rate/Area] Estimated glomerular filtration rate (GFR) non- Low >=60 mL/min/1.7 3m 2 [facility] Hematocrit Auto (Bld) [Volum e fraction]on 08-02-2024 Hematocrit (Bld) [Volume fraction] Hematocrit [Volume Fraction] of Blood by Automated count Low 42.0-54.0 [facility] Hemoglobin [Mass/volume] in Bloodon 08-02-2024 Hemoglobin (Bld) [Mass/Vol] Hemoglobin [Mass/volume] in Blood Low 14.0-18.0 [facility] Iron binding capacity [Mass/ volume] in Serum or Plasmaon 08-02-2024 Iron binding capacity [Mass/Vol] Iron binding capacity [Mass/volume] in Serum or Plasma 250.0-450. 0 [facility] Iron saturation [Mass Fracti on] in Serum or Plasmaon 08-02-2024 Iron saturation [Mass fraction] Iron saturation [Mass Fraction] in Serum or Plasma [facility] Laboratory - Chemistry and C hemistry - challengeon 08-02-2024 Albumin [Mass/Vol] 3.2 g/dL Low 3.4-5.0 [facility] Calcium [Mass/Vol] 8.5 mg/dL 8.5-10.1 [facility] Chloride [Moles/Vol] 107 mmol/L 98-107 [facility] CO2 [Moles/Vol] 28.3 mmol/L 21.0-32.0 [facility] Cobalamin (Vitamin B12) [Mass/Vol] 399 pg/mL 232-1245 [facility] Comment on above: Performed at: - [address] [id number] Director: Morgan Carpenter PhD, Phone: [phone] Creatinine [Mass/Vol] 2.07 mg/dL High 0.70-1.30 [facility] Ferritin [Mass/Vol] 35.0 ng/mL 26.0-388.0 [facility] GFR/1.73 sq M.predicted MDRD (S/P/Bld) [Vol rate/Area] 38 mL/min/{1.73_m2} Low >=60 mL/min/1.7 3m 2 [facility] Glucose [Mass/Vol] 106 mg/dL 74-106 [facility] Iron [Mass/Vol] 22.0 ug/dL Low 65.0-175.0 [facility] Magnesium [Mass/Vol] 2.1 mg/dL 1.8-2.4 [facility] Potassium [Moles/Vol] 4.1 mmol/L 3.5-5.1 [facility] Sodium [Moles/Vol] 144 mmol/L 136-145 [facility] Urate [Mass/Vol] 5.8 mg/dL 3.5-7.2 [facility] Urea nitrogen [Mass/Vol] 28.0 mg/dL High 7.0-18.0 [facility] Urea nitrogen/Creatinine [Mass ratio] 13.5 mg/mg [facility] Laboratory - Urinalysison Protein (U) [Mass/Vol] 19.4 mg/dL High <=11.9 [facility] Leukocytes [#/volume] correc phil for nucleated erythrocytes in Blood by Automated counon 08-02-2024 WBC corrected for nucl RBC Auto (Bld) [#/Vol] Leukocytes [#/volume] corrected for nucleated erythrocytes in Blood by Automated coun 4.0-11.0 [facility] MCH Auto (RBC) [Entitic mass ]on 08-02-2024 MCH (RBC) [Entitic mass] MCH [Entitic mass] by Automated count Low 25.9-34.0 [facility] MCHC Auto (RBC) [Mass/Vol]on 08-02-2024 MCHC (RBC) [Mass/Vol] MCHC [Mass/volume] by Automated count Low 29.9-35.2 [facility] MCV Auto (RBC) [Entitic vol] on 08-02-2024 MCV (RBC) [Entitic vol] MCV [Entitic vol ume] by Automated count Low 80.0-94.0 [facility] No Panel Informationon 08-02 25-Hydroxy Vitamin D Total 48.3 ng/mL [facility] Comment on above: <20 ng/mL Vit D defi cient20-<30 ng/mL Vit D qfddxkuwriru63-406 ng/mL Vit D sufficient>100 ng/mL Potential Toxicity Folate 19.30 ng/mL 8.60-58.90 [facility] Parathyroid Hormone (Intact) 62 pg/mL 15-65 [facility] Comment on above: Performed at: [address] [id number] Director: Morgan Carpenter PhD, Phone: [phone] Phosphorus Level 3.1 mg/dL 2.6-4.7 [facility] Urine Random Creatinine 29.50 mg/dL 20.0 0-300. 00 [facility] Platelet mean volume Auto (B ld) [Entitic vol]on 08-02-2024 Platelet mean volume (Bld) [Entitic vol] Platelet mean volume [Entitic volume] in Blood by Automated count 9.5-13.5 [facility] Platelets Auto (Bld) [#/Vol] on 08-02-2024 Platelets (Bld) [#/Vol] Platelets [#/vol ume] in Blood by Automated count 150-450 [facility] RBC Auto (Bld) [#/Vol]on RBC (Bld) [#/Vol] Erythrocytes [#/volu me] in Blood by Automated count Low 4.70-6.10 [facility] Serum or plasma anion gap de terminationon 08-02-2024 Anion gap [Moles/Vol] Serum or plasma an ion gap determination [facility] Urine protein/creatinine rat ioon 08-02-2024 Protein/Creatinine (U) [Ratio] Urine protein/creatinine ratio [facility] ECG 12 Leadon 07-29-2024 ECG revealed normal sinus rhythm with first-degree AV block, septal myocardial infarction of undetermined age, diffuse repolarization abnormalities, abnormal ECG [facility] Work Phone: ITPon 07-25-2024 [place] [address] Cardiac Rehab Report Signed Patient: ALEX ANDERSON MR#: [id number] : 1945 Acct:[id number] Age/Sex: 78 / M ADM Date: 07/23/24 Loc: CR Attending Dr: TEO AL Ordering Physician: Martita Garnica D.O. Date of Service: 07/23/24 Procedure(s): ITP Accession Number(s): [id number] cc: [facility] Test Date: 2024-07-23 Pat Name: ALEX ANDERSON Department: Room: - Gender: Male Superintendent Pressure: : 1945 Requested By: MARTITA GARNICA Order Number: [id number] Reading MD: MARTITA GARNICA Interpretive Statements Session Date: Electronically Signed On 07-25-2024 8:18:39 EST by MARTITA GARNICA Dictated By: Martita Garnica D.O. Signed By: 07/25/2418 07/25/24 0818 DD/ 1540 TD/TT: Senior Internal Auditor: SAMAN RadiologyGuerline MD - 07/25/2024 [place] [address] Cardiac Rehab Report Signed Patient: ALEX ANDERSON MR#: [id number] : 1945 Acct:[id number] Age/Sex: 78 / M ADM Date: 07/23/24 Loc: CR Attending Dr: TEO AL Ordering Physician: Martita Garnica D.O. Date of Service: 07/23/24 Procedure(s): ITP Accession Number(s): [id number] cc: [facility] Test Date: 2024-07-23 Pat Name: ALEX ANDERSON Department: Room: - Gender: Male Superintendent Pressure: : 1945 Requested By: MARTITA GARNICA Order Number: [id number] Reading MD: MARTITA GARNICA Interpretive Statements Session Date: Electronically Signed On 07-25-2024 8:18:39 EST by MARTITA GARNICA Dictated By: Martita Garnica D.O. Signed By: 07/25/2481707/25/24817 DD/ 1540 TD/TT: Senior Internal Auditor: [facility] ITPOrdered By: Iker Hall adiology on 07-25-2024 [facility] Work Phone: ITPon 07-23-2024 Radiology Study observation (narrative) [facility] Ambulatory Visit Summaryon 0 07-15-2024 Ambulatory Visit [...] Appointments Jul. 2024 11:20 AM EDT With: JOSSELIN BARR, HEATHER Luu Where: [facility] [address] [place] [address] [place] [address]- Friday 2:00 PM EDT With: ARLENE CASILLAS, Katia Hall Where: [facility] [address] [place] [address] [place] [address]- Medications What How Much When Instructions New cephalexin (Keflex 250 mg Cap) 1 Capsules By Mouth Every day Refills: [address] [facility]/pharmacy #[id number] Unchanged albuterol (Albuterol (Eqv-ProAir HFA) 90 mcg/ [...] physician if questions or concerns Pharmacy Information [facility]/pharmacy #[id number]: [address], [place] [phone] What How Much When Comments Stop Taking [...] about yo (more content not included)... Normal [facility] Urology Office/Clinic Noteon 07-15-2024 Urology Office/Clinic [...] E&M of Est. Patient Moderate 30-39 Min 61279 Influenza immunization status assessed 1030F Insertion of temp indwelling bladder cath (villarreal) simple 39721 Medication list documented in medical record 1159F [...] stop the suppressive abx. 3. Anticoagulated, (Z79.01: ocean transportation intermediary (current) use of anticoagulants)Anticoagula phil Coumadin & Plavix Ordered: E&M of Est. Patient Moderate 30-39 Min 74786 4. Bladder cancer (C67.9: Malignant neoplasm of bladder, unspecified) Original TURBT/extraction of 2 bladder calculi 09/12/22 - Noninvasive papillary urothelial carcinoma, low grade. Invasion is not recognized. A small fragment of detrusor muscle is present in the specimen. Last cysto 04/06/24. Next cysto 10/05/24. Orders: cephalexin, 250 mg = 1 cap(s), Oral, Daily, # 30 cap(s), Refills(s) 1, Pharmacy: [facility]/pharmacy #[id number], 187, cm, 07/15/24 10:46:00 EST, Height/Length Dosing, 93, kg, 07/15/24 10:46:00 EST, Weight Dosing sterile water, See Instructions, 500 mL, Refill(s) 5, Irrigate villarreal catheter as needed with 60 cc sterile water, [id number], 187, cm, 04/06/24 11:21:00 EST, Height/Length Dosing, 93, kg, 04/06/24 11:21:00 EST, Weight Dosing Follow-up With When Contact Information JOSSELIN BARR, HEATHER Luu, URL In 1 month [address] [place] [address] Additional Instructions: Patient Education Bladder [...] cap(s), Oral, (more content not included)... Normal [facility] Comment on above: Result Comment: Elec tronically Signed By: JOSSELIN BARR, HEATHER Luu\neftali\Date and Time Signed: 07/15/24 14:06 EST ALL THYROID STIM HORMONEon 0 07-13-2024 Interpretation and review of laboratory results Abnormal [facility] TSH Qn 0.039 m[IU]/L Low [facility] SRM[facility] PROTHROMBIN TIME INR W/O COUMon 06-29-2024 Interpretation and review of laboratory results Abnormal [facility] PT Coag (PPP) [Time] 61.5 s Critically high [facility] Comment on above: [facility] BY Vidya Valentine at 1126 TBH INR 7.04 Critically high [facility] Comment on above: RESULTS CALLED TO [facility] BY Vidya Valentine at 1127 DESIRED INR: 2.0-3.0 CONDITIONS NOT LISTED BELOW 2.5-3.5 FOR PROSTHETIC HEART VALVE REPLACEMENT 2.5-3.5 [facility]2024 [place] [address] Cardiac Rehab Report Signed Patient: ALEX ANDERSON MR#: [id number] : 1945 Acct:[id number] Age/Sex: 78 / M ADM Date: 06/25/24 Loc: CR Attending Dr: TEO AL Ordering Physician: Martita Garnica D.O. Date of Service: 06/25/24 Procedure(s): ITP Accession Number(s): [id number] cc: [facility] Test Date: 2024-06-25 Pat Name: ALEX ANDERSON Department: Room: Gender: M Superintendent Pressure: : Requested By: Order Number: [id number] Reading MD: MARTITA GARNICA Interpretive Statements Session Date: Electronically Signed On 06-25-2024 18:17:01 EST by MARTITA GARNICA Dictated By: Martita Garnica D.O. Signed By: 06/25/24181606/25/241816 DD/ 1308 TD/TT: Senior Internal Auditor: [facility] Guerline Jackson MD - 06/25/2024 [place] [address] Cardiac Rehab Report Signed Patient: ALEX ANDERSON MR#: [id number] : 1945 Acct:[id number] Age/Sex: 78 / M ADM Date: 06/25/24 Loc: CR Attending Dr: TEO AL Ordering Physician: Martita Garnica D.O. Date of Service: 06/25/24 Procedure(s): ITP Accession Number(s): [id number] cc: [facility] Test Date: 2024-06-25 Pat Name: ALEX ANDERSON Department: Room: Gender: Superintendent Pressure: : Requested By: Order Number: [id number] Reading MD: MARTITA GARNICA Interpretive Statements Session Date: Electronically Signed On 06-25-2024 18:17:01 EST by MARTITA GARNICA Dictated By: Martita Garnica D.O. Signed By: 06/25/24181606/25/241816 DD/ 1308 TD/TT: Senior Internal Auditor: [facility] Radiology Study observation (narrative) [facility] ITPOrdered By: Radiologist R adiology on 06-25-2024 [facility] Work Phone: Urology Office/Clinic Noteon 06-07-2024 Urology Office/Clinic Note Urology Office/Clinic Note HPI Staff 4 wk cath change. History of Present Illness I have reviewed and verified the staff HPI to be accurate for this encounter. Portions of this record may have been created with voice recognition artificial intelligence software, specifically [employer] and or [employer]. Substitutions may have occurred due to the inherent limitations of voice recognition and artificial intelligence software. Physical Exam General: Well developed, well nourished, in no acute distress. Here w/ today who does assist in providing some of his history. Assessment/Plan PRW pt 1. Gross hematuria (R31.0: Gross hematuria) [facility] ER 04/28/2024 with complaints of [...] virus vaccine, inactivated 03/26/2023 Recorded SARS-CoV-2 (COVID-19) [id number].[id number] 03/29/2022 Recorded influenza virus vaccine, inactivated 03/16/2022 Recorded influenza virus vaccine, inactivated 03/06/2022 Recorded SARSCoV2 mRNA (more content not included)... Normal [facility] Comment on above: Result Comment: Elec tronically Signed By: TC Boles APRN, [place] X\.br\Date and Time Signed: 06/07/24 10:43 EST Ambulatory [...] HEATHER OMALLEY PA-C Where: [facility] [address] [address] Friday 2:00 PM EDT With: ARLENE CASILLAS, Katia Hall Where: [facility] [place] [address] [place] [address]- Medications What How Much When Instructions Unchanged [...] for choosing us for your care. Normal [facility] Alanine Aminotransferaseon 1 07-22-2023 ALT [Catalytic activity/Vol] 12 U/L Normal 7-52 [facility] Comment on above: Performed By: #### P TT, PT #### [facility] [address] [place] [address] [place] Alanine aminotransferase [En zymatic activity/volume] in Serum or PlasmaOrdered By: Teo Al on 05-21-2024 ALT [Catalytic activity/Vol] Alanine aminotransferase [Enzymatic activity/volume] in Serum or Plasma [facility] Aspartate Amino Transferaseo n 05-21-2024 AST [Catalytic activity/Vol] 13 U/L Normal -39 [facility] Comment on above: Performed By: #### P TT, PT #### [facility] [address] [place] [address] [place] Aspartate aminotransferase [ Enzymatic activity/volume] in Serum or PlasmaOrdered By: Teo Al on 05-21-2024 AST [Catalytic activity/Vol] Aspartate aminotransferase [Enzymatic activity/volume] in Serum or Plasma 39 [facility] Basic Metabolic Panelon 04-26 Anion gap [Moles/Vol] 14.7 mmol/L Normal 6.0-15.0 e [facility] Comment on above: Performed By: #### P TT, PT #### [place] [address] [place] Calcium [Mass/Vol] 9.1 mg/dL Normal 8.6-10.3 [facility] Comment on above: Performed By: #### P TT, PT #### [place] [address] [place] Chloride [Moles/Vol] 105 mmol/L Normal 98-107 [facility] Comment on above: Performed By: #### P TT, PT #### [place] [address] [place] CO2 [Moles/Vol] 27.8 mmol/L Normal 21.0-31.0 [facility] Comment on above: Performed By: #### P TT, PT #### [address] Creatinine [Mass/Vol] 2.20 mg/dL High 0.70-1.30 [facility] Comment on above: Performed By: #### P TT, PT #### [address] [place] [address] [place] Estimated GFR 29.538 mL/Min Normal [facility] Comment on above: Performed By: #### P TT, PT #### [facility] [address] Glucose [Mass/Vol] 124 mg/dL High 70-100 [facility] Comment on above: Result Comment: [place] Glucose Reference Range is dependent on time and content of last meal. Glucose of more than 200 mg/dL in a nonstressed, ambulatory subject supports the diagnosis of Diabetes Mellitus. ADA recommended reference range Performed By: #### P TT, PT #### [address] Potassium [Moles/Vol] 4.5 mmol/L Normal 3.5-5.1 [facility] Comment on above: Performed By: #### P TT, PT #### [address] Sodium [Moles/Vol] 143 mmol/L Normal 136-145 [facility] Comment on above: Performed By: #### P TT, PT #### [address] Urea nitrogen [Mass/Vol] 34 mg/dL High 7-25 [facility] Comment on above: Performed By: #### P TT, PT #### [address] Basophils Auto (Bld) [#/Vol] Ordered By: Teo Al on 05-21-2024 Basophils (Bld) [#/Vol] Automated basophil count 0.0-0.2 [facility] Basophils/100 WBC Auto (Bld) Ordered By: Teo Al on 05-21-2024 Basophils/100 WBC (Bld) Automated basophil % . [facility] Calcium [Mass/volume] in Ser um or PlasmaOrdered By: Teo Al on 05-21-2024 Calcium [Mass/Vol] Calcium [Mass/volume ] in Serum or Plasma 8.6-10.3 [facility] Carbon dioxide, total [Moles /volume] in Serum or PlasmaOrdered By: Teo Al on 05-21-2024 CO2 [Moles/Vol] Carbon dioxide, tota l [Moles/volume] in Serum or Plasma 21.0-31.0 [facility] Chloride [Moles/volume] in S marium or PlasmaOrdered By: Teo Al on 05-21-2024 Chloride [Moles/Vol] Chloride [Moles/vol ume] in Serum or Plasma 98-107 [facility] Cholesterol [Mass/volume] in Serum or PlasmaOrdered By: Teo Al on 05-21-2024 Cholesterol [Mass/Vol] Cholesterol [Mass /volume] in Serum or Plasma Low 140-200 [facility] Comment on above: Chol less than 200 m g/dl low riskChol 201-239 mg/dl borderline riskChol 240 mg/dl and greater high risk Cholesterol in HDL [Mass/vol ume] in Serum or PlasmaOrdered By: Teo Al on 05-21-2024 Cholesterol in HDL [Mass/Vol] Serum or plasma high density lipoprotein (HDL) cholesterol measurement 23-92 [facility] Comment on above: HDL CHOL ATP-III CLA SSIFICATION Cardiovascular RiskHDL > or equal to 60 mg/dL LOWHDL < 40 mg/dL HIGH Cholesterol in LDL Calc [Mas s/Vol]Ordered By: Teo Al on 05-21-2024 Cholesterol in LDL [Mass/Vol] Cholesterol in LDL [Mass/volume] in Serum or Plasma by calculation 0-100 [facility] Comment on above: LDL ATP III CLASSIFI CATIONLDL less than 100 mg/dL OptimalLDL 100-129 mg/dL Near or above optimalLDL 130-159 mg/dL Borderline highLDL 160-189 mg/dL HighLDL greater than 189 mg/dL Very high Cholesterol in VLDL Calc [Ma ss/Vol]Ordered By: Teo Al on 05-21-2024 Cholesterol in VLDL [Mass/Vol] Cholesterol in VLDL [Mass/volume] in Serum or Plasma by calculation [facility] Complete Blood Count Auto Di ffon 05-21-2024 Basophils (Bld) [#/Vol] 0.1 10*3/uL Normal 0.0-0.2 [facility] Comment on above: Result Comment: PERF ORMED BY: [place] [address] PATHOLOGIST [facility]ER PNEUMATIC ED CRUZ M.D. Performed By: #### P TT, PT #### [address] Basophils/100 WBC (Bld) 1.0 % Normal . T [facility] Comment on above: Performed By: #### P TT, PT #### [address] Eosinophils (Bld) [#/Vol] 0.2 10*3/uL Normal 0.0-0.45 [facility] Comment on above: Performed By: #### P TT, PT #### [address] Eosinophils/100 WBC (Bld) 3.3 % Normal . [facility] Comment on above: Performed By: #### P TT, PT #### [address] Erythrocyte distribution width (RBC) [Ratio] 18.1 % High 12.0-14.8 [facility] Comment on above: Performed By: #### P TT, PT #### [address] Hematocrit (Bld) [Volume fraction] 30.3 % Low 38.8-50.0 [facility] Comment on above: Performed By: #### P TT, PT #### [address] Hemoglobin (Bld) [Mass/Vol] 9.5 g/dL Low 13.0-17.0 [facility] Comment on above: Performed By: #### P TT, PT #### [address] Lymphocytes (Bld) [#/Vol] 1.3 10*3/uL Normal 1.00-4.8 [facility] Comment on above: Performed By: #### P TT, PT #### [place] [address] [place] Lymphocytes/100 WBC (Bld) 22.2 % Normal . [facility] Comment on above: Performed By: #### P TT, PT #### [address] MCH (RBC) [Entitic mass] 23.3 pg Low 27.5-35.2 [facility] Comment on above: Performed By: #### P TT, PT #### [address] MCV (RBC) [Entitic vol] 74.4 fL Low 83.5-101 [facility] Comment on above: Performed By: #### P TT, PT #### [address] Mean Corpuscular HGB Conc 31.3 g/dL Low 32.5-35.6 [facility] Comment on above: Performed By: #### P TT, PT #### [address] Monocytes (Bld) [#/Vol] 0.6 10*3/uL Normal 0.0-0.8 [facility] Comment on above: Performed By: #### P TT, PT #### [address] Monocytes/100 WBC (Bld) 10.2 % Normal . [facility] Comment on above: Performed By: #### P TT, PT #### [address] Neutrophils (Bld) [#/Vol] 3.8 10*3/uL Normal 1.8-7.7 [facility] Comment on above: Performed By: #### P TT, PT #### [address] Neutrophils/100 WBC (Bld) 63.3 % Normal . [facility] Comment on above: Performed By: #### P TT, PT #### [address] NRBC% 0.1 /100{WBC} Normal 0-0.5 [facility] Comment on above: Performed By: #### P TT, PT #### [address] Platelet mean volume (Bld) [Entitic vol] 8.1 fL Normal 6.6-10.1 [facility] Comment on above: Performed By: #### P TT, PT #### [address] Platelets (Bld) [#/Vol] 315 10*3/uL Normal 150-450 [facility] Comment on above: Performed By: #### P TT, PT #### [address] RBC (Bld) [#/Vol] 4.07 10*6/uL Normal 3.90-5.60 [facility] [facility] Comment on above: Performed By: #### P TT, PT #### [address] WBC (Bld) [#/Vol] 6.1 10*3/uL Normal 4.1-10.5 [facility] Comment on above: Performed By: #### P TT, PT #### [address] Creatinine [Mass/volume] in Serum or PlasmaOrdered By: Teo Al on 05-21-2024 Creatinine [Mass/Vol] Creatinine [Mass/v olume] in Serum or Plasma High 0.70-1.30 [facility] ECG 12 Leadon 05-21-2024 ECG revealed normal sinus rhythm, IVCD, diffuse repolarization abnormalities, septal myocardial infarction of undetermined age, abnormal ECG [facility] Work Phone: Eosinophils Auto (Bld) [#/Vo l]Ordered By: Teo Al on 05-21-2024 Eosinophils (Bld) [#/Vol] Automated eosinophil count 0.0-0.45 [facility] Eosinophils/100 WBC Auto (Bl d)Ordered By: Teo Al on 12-27-2024 Eosinophils/100 WBC (Bld) Automated eosinophil % . [facility] Erythrocyte distribution wid th Auto (RBC) [Ratio]Ordered By: Teo Al on 05-21-2024 Erythrocyte distribution width (RBC) [Ratio] Erythrocyte distribution width [Ratio] by Automated count High 12.0-14.8 [facility] Glucose [Mass/volume] in Ser um or PlasmaOrdered By: Teo Al on 05-21-2024 Glucose [Mass/Vol] Glucose [Mass/volume ] in Serum or Plasma High 70-100 [facility] Comment on above: ADA recommended refe rence rangeRandom Glucose Reference Range is dependent on time and content of last meal. Glucose of more than 200 mg/dL in a nonstressed, ambulatory subject supports the diagnosis of Diabetes Mellitus. Hematocrit Auto (Bld) [Volum e fraction]Ordered By: Teo Al on 05-21-2024 Hematocrit (Bld) [Volume fraction] Hematocrit [Volume Fraction] of Blood by Automated count Low 38.8-50.0 [facility] Hemoglobin [Mass/volume] in BloodOrdered By: Teo Al on 05-21-2024 Hemoglobin (Bld) [Mass/Vol] Hemoglobin [Mass/volume] in Blood Low 13.0-17.0 [facility] Leukocytes [#/volume] correc phil for nucleated erythrocytes in Blood by Automated counOrdered By: Teo Al on 05-21-2024 WBC corrected for nucl RBC Auto (Bld) [#/Vol] Leukocytes [#/volume] corrected for nucleated erythrocytes in Blood by Automated coun 4.1-10.5 [facility] Lipid Panelon 05-21-2024 Cholesterol [Mass/Vol] 89 mg/dL Low 140-200 [facility] Comment on above: Result Comment: Chol less than 200 mg/dl low risk Chol 201-239 mg/dl borderline risk Chol 240 mg/dl and greater high risk Performed By: #### P TT, PT #### [facility] [address] Cholesterol in HDL [Mass/Vol] 41 mg/dL Normal 23-92 [facility] Comment on above: Result Comment: HDL CHOL ATP-III CLASSIFICATION Cardiovascular Risk HDL > or equal to 60 mg/dL LOW HDL < 40 mg/dL HIGH Performed By: #### P TT, PT #### [facility] [address] Cholesterol.total/Sonya sterol in HDL [Mass ratio] 2.2 {ratio} Normal <5.0 [facility] Comment on above: Performed By: #### P TT, PT #### [facility] [address] LDL Cholesterol,Calculated 34 mg/dL Normal 0-100 [facility] Comment on above: Result Comment: LDL ATP III CLASSIFICATION LDL less than 100 mg/dL Optimal LDL 100-129 mg/dL Near or above optimal LDL 130-159 mg/dL Borderline high LDL 160-189 mg/dL High LDL greater than 189 mg/dL Very high Performed By: #### P TT, PT #### [address] Triglyceride w/Reflex 71 mg/dL Normal 0-149 [facility] Comment on above: Result Comment: TRIG ATP III CLASSIFICATION TRIG less than 150 mg/dL Normal TRIG 150-199 mg/dL Borderline high TRIG 200-500 mg/dL High TRIG greater than 500 mg/dL Very high Standard traceable to the Center for Disease Conrtrol and Prevention (CDC) test method. Performed By: #### P TT, PT #### [facility] [address] VLDL CHOLESTEROL 14 mg/dL Normal [facility] Comment on above: Performed By: #### P TT, PT #### [address] Lymphocytes Auto (Bld) [#/Vo l]Ordered By: Teo Al on 05-21-2024 Lymphocytes (Bld) [#/Vol] Lymphocytes [#/volume] in Blood by Automated count 1.00-4.8 [facility] Lymphocytes/100 WBC Auto (Bl d)Ordered By: Teo Al on 05-21-2024 Lymphocytes/100 WBC (Bld) Lymphocytes/100 leukocytes in Blood by Automated count . [facility] MCH Auto (RBC) [Entitic mass ]Ordered By: Teo Al on 05-21-2024 MCH (RBC) [Entitic mass] MCH [Entitic mass] by Automated count Low 27.5-35.2 [facility] MCHC Auto (RBC) [Mass/Vol]Or dered By: Teo Al on 05-21-2024 MCHC (RBC) [Mass/Vol] MCHC [Mass/volume] by Automated count Low 32.5-35.6 [facility] MCV Auto (RBC) [Entitic vol] Ordered By: Teo Al on 05-21-2024 MCV (RBC) [Entitic vol] MCV [Entitic vol ume] by Automated count Low 83.5-101 [facility] Monocytes Auto (Bld) [#/Vol] Ordered By: Teo Al on 05-21-2024 Monocytes (Bld) [#/Vol] Automated blood monocyte count 0.0-0.8 [facility] Monocytes/100 WBC Auto (Bld) Ordered By: Teo Al on 05-21-2024 Monocytes/100 WBC (Bld) Automated monocyte % . [facility] Neutrophils Auto (Bld) [#/Vo l]Ordered By: Teo Al on 05-21-2024 Neutrophils (Bld) [#/Vol] Neutrophils [#/volume] in Blood by Automated count 1.8-7.7 [facility] Neutrophils/100 WBC Auto (Bl d)Ordered By: Teo Al on 05-21-2024 Neutrophils/100 WBC (Bld) Automated neutrophil % . [facility] No Panel InformationOrdered By: Teo Al on 05-21-2024 Estimated GFR (CKD-EPI) 29.538 mL/Min [facility] Creatinine Clearance (Chem N/A [facility] Nucleated erythrocytes [Pres ence] in Blood by Automated countOrdered By: Teo Al on 05-21-2024 Nucleated RBC Auto Ql (Bld) Nucleated erythrocytes [Presence] in Blood by Automated count 0-0.5 [facility] Platelet mean volume Auto (B ld) [Entitic vol]Ordered By: Teo Al on 05-21-2024 Platelet mean volume (Bld) [Entitic vol] Platelet mean volume [Entitic volume] in Blood by Automated count 6.6-10.1 [facility] Platelets Auto (Bld) [#/Vol] Ordered By: Teo Al on 05-21-2024 Platelets (Bld) [#/Vol] Platelets [#/vol ume] in Blood by Automated count 150-450 [facility] Potassium [Moles/volume] in Serum or PlasmaOrdered By: Teo Al on 05-21-2024 Potassium [Moles/Vol] Potassium [Moles/v olume] in Serum or Plasma 3.5-5.1 [facility] RBC Auto (Bld) [#/Vol]Ordere d By: Teo Al on 05-21-2024 RBC (Bld) [#/Vol] Erythrocytes [#/volu me] in Blood by Automated count 3.90-5.60 [facility] Serum or plasma anion gap de terminationOrdered By: Teo Al on 05-21-2024 Anion gap [Moles/Vol] Serum or plasma an ion gap determination 6.0-15.0 [facility] Serum or plasma total choles terol/high density lipoprotein (HDL) cholesterol mass ratOrdered By: Teo Al on 05-21-2024 Cholesterol.total/Sonya sterol in HDL [Mass ratio] Serum or plasma total cholesterol/high density lipoprotein (HDL) cholesterol mass rat <5.0 [facility] Sodium [Moles/volume] in Ser um or PlasmaOrdered By: Teo Al on 05-21-2024 Sodium [Moles/Vol] Sodium [Moles/volume ] in Serum or Plasma 136-145 [facility] Thyroid Stimulating Hormoneo n 05-21-2024 TSH Qn 0.11 m[IU]/L Low 0.45-5.33 [facility] Comment on above: Result Comment: PERF ORMED BY: [address] [place] [address] PATHOLOGIST [employer]UM[employer] ED CRUZ M.D. Performed By: #### P TT, PT #### [address] Thyrotropin [Units/volume] i n Serum or PlasmaOrdered By: Teo Al on 05-21-2024 TSH Qn Thyrotropin [Units/v olume] in Serum or Plasma Low 0.45-5.33 [facility] Triglyceride [Mass/volume] i n Serum or PlasmaOrdered By: Teo Al on 05-21-2024 Triglyceride [Mass/Vol] Triglyceride [Ma ss/volume] in Serum or Plasma 0-149 [facility] Comment on above: TRIG ATP III [...] [Mass/volume] in Serum or Plasma High 7-25 [facility] WBC Auto (Bld) [#/Vol]Ordere d By: Teo Al on 05-21-2024 WBC (Bld) [#/Vol] Leukocytes [#/volume ] in Blood by Automated count 4.1-10.5 [facility] UroVysion Fish and Urine Cyt o ([facility])on 04-12-2024 UVFISH & UC Diagnosis Info Invalid Interpretation Code [facility] Comment on above: Result Comment: A:Ur [...] with cytology and cystoscopy results. * CPT: 09180, 40925. Microscopic Notes - Microscopic Notes - Abnormal cells 9p21 deletions: Abnormal cells aneploid events: Total cells analyzed: 25 Hematuria: Gross Description Site ID:A color Colorless fixative Alcohol Received 90 mls of slightly cloudy colorless fluid with the patient's name and, Bladder Wash on the vial. Electronically signed by : on: 04/12/2024 16:53:27 Performed By: #### 1 [id number] #### [facility] [address] [place] [address] Ambulatory Visit Summaryon 1 06-06-2023 Ambulatory Visit [...] [facility] [address] , [place] [address]- Medications What How Much When Instructions Unchanged [...] provider may (more content not included)... Normal [facility] Reminderson 04-06-2024 Reminders Reminders From: Dana Rivas To: EU - Recalls Jacobs; Sent: 02/20/2024 14:44:26 EDT Show up: 07/24/2024 14:44:00 EST Subject: Cysto/FISH/cytol, cath chng Due Date/Time: 08/16/2024 14:44:00 EDT Reminder/Recall Patient is due in September 2024 for 6 month cysto/fish/cytol, cath change (bt ck) Patient sched 10/05/24 Normal [facility] UroVysion Fish and Urine Cyt o ([facility])on 04-06-2024 [facility] Method of Extraction Bladder Wash Normal [facility] Comment on above: Performed By: #### 1 [id number] #### [facility] [address] [place] [address] [facility] Number of Jars 1 Invalid Interpretation Code [facility] Comment on above: Performed By: #### 1 [id number] #### [facility] [address] [place] [address] [facility] Specimen Bladder Wash Normal [facility] Comment on above: Performed By: #### 1 [id number] #### [facility] [address] [place] [address] [facility] Type of Service Technical Only Normal [facility] Comment on above: Performed By: #### 1 [id number] #### [facility] [address] [place] [address] Urology Office/Clinic Noteon 04-06-2024 Urology Office/Clinic Note [...] going to start monthly villarreal changes. [1] [facility] ER on 09/15/22 due to catheter clogged. Pt was diagnosed w/ UTI and treated w/ Cipro 500 mg BID for x 7 days. Attempted urocuff, pt was unable to void, PVR 348 cc, cath placed 10/04/22. [2] Pt has been in the ER multiple times due to issues with Villarreal. Most recently, pt presented to [facility] ER 09/29/23 and 09/30/23 due to catheter not draining. [3] Cath changed IO today, see procedure section. 3. BPH with urinary obstruction (N40.1: Benign prostatic hyperplasia with lower urinary tract symptoms) S/p Rezum 06/10/23. Not taking any BPH meds. Maintained with chronic villarreal, see #2. Follow-up With When Contact Information ARLENE CASILLAS, Katia Hall, BRAULIOL [facility] [address], [place] [address]- Additional Instructions: 6 mos surveillance cysto/bt ck/FISH/cytol [...] Medical History (more content not included)... Normal [facility] Comment on above: Result Comment: Elec tronically Signed By: Katia JACOBS MD\.br\Date and Time Signed: 04/06/24 11:36 EST\.br\Electronically Co-Signed By: Citlalli Rushing\.br\Date and Time Co-Signed: 04/06/24 11:35 EST ALL HEMOGLOBINon 03-23-2024 Hemoglobin (Bld) [Mass/Vol] 9.5 g/dL Low 14.0 - 18.0 g/dL [facility] Interpretation and review of laboratory results Abnormal [facility] No Panel InformationOrdered By: Rosalie Bailey on 03-08-2024 Quick Strep (POC) [facility] XR chest 2V*on 03-08-2024 XR chest 2V* [facility] [place] [address] XRay Report Signed Patient: Alex Anderson MR#: [id number] [birth year] : 1945 Acct:[id number] Age/Sex: 78 / M ADM Date: 03/08/24 Loc: XDUCLY Room: Type: [facility] Attending Dr: Rosalie Bailey BENEFITS ADVISOR Copies to: Rosalie Bailey APRN Ordering Provider: [...] Corky Max M.D.03/08/2024 2:03 PM Dictation Location: [place] [address] Transcribed By: [facility] 03/08/241402 Dictated By: Corky Max II, MD 03/08/241401 Signed By: 03/08/24 140 Normal [facility] ALL HEMOGLOBINon 03-04-2024 Hemoglobin (Bld) [Mass/Vol] 10.0 g/dL Low 14.0 - 18.0 g/dL [facility] Healthcare Interpretation and review of laboratory results Abnormal [facility] Reminderson 02-19-2024 Reminders Reminders From: Dana [...] ok to keep cysto on 04/06/24.LG Normal [facility] ECG 12 Leadon 02-10-2024 ECG revealed normal sinus rhythm, left axis deviation, 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, QT prolongation, IVCD [facility] Work Phone: Bacteria [Presence] in Urine by AutomatedOrdered By: Rob Almazan on 01-23-2024 Bacteria Auto Ql (U) Rare [HPF] None Seen [facility] Bilirubin Test strip Ql (U)O rdered By: Rob Almazan on 01-23-2024 Bilirubin Ql (U) Negative Negative [facility] Color of Urine by AutoOrdere d By: Rob virgilio on 01-23-2024 Color (U) Yellow Normal Yellow [facility] Comment on above: Order Comment: Name Collection Type:: Villarreal Catheter Performed By: #### A DDONUAPLUS, CUU #### [place] [address] [place] Dipstick and Microscopicon 0 01-23-2024 Bacteria,Urine Rare Normal None Seen [facility] Comment on above: Order Comment: Name Collection Type:: Villarreal Catheter Performed By: #### A DDONUAPLUS, CUU #### [place] [address] [place] Bilirubin,Urine Negative Normal Negative [facility] Comment on above: Order Comment: Name Collection Type:: Villarreal Catheter Performed By: #### A DDONUAPLUS, CUU #### [place] [address] [place] Glucose Ql (U) Normal Normal Normal [facility] Comment on above: Order Comment: Name Collection Type:: Villarreal Catheter Performed By: #### A DDONUAPLUS, CUU #### [place] [address] [place] Hyaline Casts,Urine None Normal 0-8 [facility] Comment on above: Order Comment: Name Collection Type:: Villarreal Catheter Performed By: #### A DDONUAPLUS, CUU #### [place] [address] [place] Mucus,Urine Rare Normal [facility] Comment on above: Order Comment: Name Collection Type:: Villarreal Catheter Result Comment: PERF ORMED BY: [place] [address] PATHOLOGIST RIVETER PNEUMATIC OREN OWEN M.D. Performed By: #### A DDONUAPLUS, CUU #### [place] [address] [place] Nitrite,Urine Negative Normal Negative [facility] Comment on above: Order Comment: Name Collection Type:: Villarreal Catheter Performed By: #### A DDONUAPLUS, CUU #### [place] [address] [place] Occult Blood,Urine 2+ High Negative [facility] Comment on above: Order Comment: Name Collection Type:: Villarreal Catheter Result Comment: PERF ORMED BY: [place] [address] PATHOLOGIST RIVETER PNEUMATIC OREN OWEN M.D. Performed By: #### A DDONUAPLUS, CUU #### [place] [address] [place] Protein,Urine Trace High Negative [facility] Comment on above: Order Comment: Name Collection Type:: Villarreal Catheter Performed By: #### A DDONUAPLUS, CUU #### [place] [address] [place] RBC,Urine 20-49 High 0-4 [facility] Comment on above: Order Comment: Name Collection Type:: Villarreal Catheter Performed By: #### A DDONUAPLUS, CUU #### [place] [address] [place] Specificy [place],Urine 1.022 Normal 1.00 1-1.03 0 [facility] Comment on above: Order Comment: Name Collection Type:: Villarreal Catheter Performed By: #### A DDONUAPLUS, CUU #### [place] [address] [place] Urobilinogen,Urine 2 mg/dL High Normal [facility] Comment on above: Order Comment: Name Collection Type:: Villarreal Catheter Performed By: #### A DDONUAPLUS, CUU #### [place] [address] [place] WBC CLUMP, Urine Rare High None Seen [facility] Comment on above: Order Comment: Name Collection Type:: Villarreal Catheter Performed By: #### A DDONUAPLUS, CUU #### [place] [address] [place] WBC,Urine 20-49 High 0-4 [facility] Comment on above: Order Comment: Name Collection Type:: Villarreal Catheter Performed By: #### A MAISHA GIFFORDU #### [facility] [address] ECG 12 lead ECGon 01-23-2024 ECG 12 lead ECG [facility] [address] [place] [address] Electrocardiograph Report Signed Patient: Alex Anderson MR#: [id number] [birth year] : 1945 Acct:[id number] Age/Sex: 78 / M ADM Date: 01/16/24 Loc: Room: [address] [place] [address] Type: ADM IN Attending Dr: Nas Pruett [...] Acute Anteroseptal infarct Lateral injury pattern ACUTE MD / STEMI Abnormal ECG When compared with ECG of 19-Jan-2024 07:09, Serial changes of Anteroseptal infarct present Confirmed by Misael Campbell ([id number]) on 01/23/2024 11:36:17 AM Referred By: Electronically Signed By: Misael Campbell Transcribed By: MUS Signed By Misael Campbell MD 01/23/24 1136 Normal [facility] Epithelial cells.squamous [# /area] in Urine sediment by Automated countOrdered By: Rob Almazan on 01-23-2024 Epithelial cells.squamous Auto (Urine sed) [#/Area] N/A [facility] Erythrocytes [#/area] in Uri ne sediment by Automated countOrdered By: Rob Almazan on 01-23-2024 RBC Auto (Urine sed) [#/Area] 20-49 [HPF] High 0-4 [facility] Glucose [Mass/volume] in Uri ne by Test stripOrdered By: Rob Almazan on 01-23-2024 Glucose Test strip (U) [Mass/Vol] Normal mg/dL Normal [facility] Hemoglobin Test strip Ql (U) Ordered By: Rob Almazan on 01-23-2024 Hemoglobin Ql (U) 2+ High Negative [facility] Hyaline casts [#/area] in Ur ine sediment by Automated countOrdered By: Rob Almazan on 01-23-2024 Hyaline casts Auto (Urine sed) [#/Area] None [LPF] 0-8 [facility] Ketones [Presence] in Urine by Test stripOrdered By: Rob Almazan on 01-23-2024 Ketones Ql (U) Negative Normal Negative [facility] Comment on above: Order Comment: Name Collection Type:: Villarreal Catheter Performed By: #### A ИРИНА, CUU #### [facility] [address] [place] [address] [place] Leukocyte clumps [Presence] in Urine by AutomatedOrdered By: Rob Almazan on 01-23-2024 Leukocyte clumps Auto Ql (U) Rare [LPF] High None Seen [facility] Leukocyte esterase [Presence ] in Urine by Test stripOrdered By: Rob Almazan on 01-23-2024 Leukocyte esterase Test strip Ql (U) 4+ High Negative [facility] Comment on above: Order Comment: Name Collection Type:: Villarreal Catheter Performed By: #### A ИРИНА, CUU #### [facility] [address] [place] [address] [place] Leukocytes [#/area] in Urine sediment by Automated countOrdered By: Rob Almazan on 01-23-2024 WBC Auto (Urine sed) [#/Area] 20-49 [HPF] High 0-4 [facility] Mucus [Presence] in Urine by AutomatedOrdered By: Rob Almazan on 01-23-2024 Mucus Auto Ql (U) Rare [LPF] [facility] Nitrite Test strip Ql (U)Ord ered By: Rob Almazan on 01-23-2024 Nitrite Ql (U) Negative Negative [facility] Protein Test strip (U) [Mass /Vol]Ordered By: Robyandel Almazan on 01-23-2024 Protein (U) [Mass/Vol] Trace mg/dL High Negative [facility] [place] Specific gravity Test strip (U) [Rel density]Ordered By: Rob Villaltatej on 01-23-2024 Specific gravity (U) [Rel density] 1.022 1.001-1.03 0 [facility] Urine Cultureon 01-23-2024 Bacteria identified Cx Nom (U) ORGANISM: Enterococcus faecalis (O:ENTFAC) [place] Count 30,000 Aerobic RITESH Charge (PCMIC38) SUSCEPTIBILITY [...] RESISTANT TO ALL B-LACTAM DRUGS. PERFORMED BY: [place] [address] PATHOLOGIST RIVETER PNEUMATIC OREN OWEN M.D. Normal [facility] Comment on above: Performed By: #### A MAISHA GIFFORDU #### [facility] [address] [place] [address] Urine appearanceOrdered By: Rob Almazan on 01-23-2024 Appearance (U) Clear Normal Clear [facility] Comment on above: Order Comment: Name Collection Type:: Villarreal Catheter Performed By: #### A MAISHA GIFFORDU #### [facility] [address] [place] [address] Urine culture routineOrdered By: Rob Almazan on 01-23-2024 Bacteria identified Cx Nom (U) Enterococcus faecalis Abnormal [facility] Urobilinogen Test strip (U) [Mass/Vol]Ordered By: Rob Almazan on 01-23-2024 Urobilinogen (U) [Mass/Vol] 2 mg/dL High Normal [facility] pH of Urine by Test stripOrd ered By: Rob Almazan on 01-23-2024 pH (U) 5.5 [pH] Normal 5.0-9.0 [facility] Comment on above: Order Comment: Name Collection Type:: Villarreal Catheter Performed By: #### A MAISHA GIFFORDU #### [address] Automated basophil %Ordered By: Nas Pruett on 01-21-2024 Basophils/100 WBC (Bld) 0.5 % Normal . [facility] [place] Comment on above: Performed By: #### P TT, PT #### [address] Automated basophil countOrde red By: Nas Pruett on 01-21-2024 Basophils (Bld) [#/Vol] 0.0 10*3/uL Normal 0.0-0.2 [facility] Comment on above: Result Comment: PERF ORMED BY: [place] [address] PATHOLOGIST RIVETER PNEUMATIC OREN OWEN M.D. Performed By: #### P TT, PT #### [address] Automated blood monocyte cou ntOrdered By: Nas Pruett on 01-21-2024 Monocytes (Bld) [#/Vol] 1.4 10*3/uL High 0.0-0.8 [facility] Comment on above: Performed By: #### P TT, PT #### [address] Automated eosinophil %Ordere d By: Nas Pruett on 01-21-2024 Eosinophils/100 WBC (Bld) 3.6 % Normal . [facility] Comment on above: Performed By: #### P TT, PT #### [address] Automated eosinophil countOr dered By: Nas Pruett on 01-21-2024 Eosinophils (Bld) [#/Vol] 0.3 10*3/uL Normal 0.0-0.45 [facility] Comment on above: Performed By: #### P TT, PT #### [address] Automated monocyte %Ordered By: Nas Pruett on 01-21-2024 Monocytes/100 WBC (Bld) 16.0 % Normal . [facility] Comment on above: Performed By: #### P TT, PT #### [address] Automated neutrophil %Ordere d By: Nas Pruett on 01-21-2024 Neutrophils/100 WBC (Bld) 64.3 % Normal . [facility] Comment on above: Performed By: #### P TT, PT #### [address] Basic Metabolic Panelon 12-25 Creatinine Clr Calc Pharmacy 46.56 Normal [facility] Comment on above: Result Comment: PERF ORMED BY: [place] [address] PATHOLOGIST RIVETER PNEUMAT[employer] OREN OWEN M.D. Performed By: #### P TT, PT #### [address] GFR/1.73 sq M.predicted MDRD (S/P/Bld) [Vol rate/Area] 43.613 mL/min/{1.73_m2} Normal [facility] Comment on above: Performed By: #### P TT, PT #### [address] Calcium [Mass/volume] in Ser um or PlasmaOrdered By: Nas Pruett on 01-21-2024 Calcium [Mass/Vol] 8.5 mg/dL Low 8.6-10.3 [facility] Comment on above: Performed By: #### P TT, PT #### [address] Carbon dioxide, total [Moles /volume] in Serum or PlasmaOrdered By: Nas Pruett on 01-21-2024 CO2 [Moles/Vol] 20.1 mmol/L Low 21.0-31.0 [facility] Comment on above: Performed By: #### P TT, PT #### [address] Chloride [Moles/volume] in S marium or PlasmaOrdered By: Nas Pruett on 01-21-2024 Chloride [Moles/Vol] 107 mmol/L Normal 98-107 [facility] Comment on above: Performed By: #### P TT, PT #### [address] Complete Blood Count Auto Di ffon 01-21-2024 Mean Corpuscular HGB Conc 32.9 g/dL Normal 32.5-35.6 [facility] Comment on above: Performed By: #### P TT, PT #### [address] NRBC% 0.1 /100{WBC} Normal 0-0.5 [facility] Comment on above: Performed By: #### P TT, PT #### [address] Creatinine [Mass/volume] in Serum or PlasmaOrdered By: Nas Pruett on 01-21-2024 Creatinine [Mass/Vol] 1.59 mg/dL High 0.70-1.30 [facility] Comment on above: Performed By: #### P TT, PT #### [address] Erythrocyte distribution wid th [Ratio] by Automated countOrdered By: Nas Pruett on 01-21-2024 Erythrocyte distribution width (RBC) [Ratio] 15.6 % High 12.0-14.8 [facility] Comment on above: Performed By: #### P TT, PT #### [facility] [address] [place] [address] [place] Erythrocytes [#/volume] in B lood by Automated countOrdered By: Nas Pruett on 01-21-2024 RBC (Bld) [#/Vol] 4.33 10*6/uL Normal 3.90-5.60 [facility] Comment on above: Performed By: #### P TT, PT #### [facility] [address] Glucose [Mass/volume] in Ser um or PlasmaOrdered By: Nas Pruett on 01-21-2024 Glucose [Mass/Vol] 121 mg/dL High 70-100 [facility] Comment on above: ADA recommended refe rence rangeRandom Glucose Reference Range is dependent on time and content of last meal. Glucose of more than 200 mg/dL in a nonstressed, ambulatory subject supports the diagnosis of Diabetes Mellitus. Result Comment: [place] om Glucose Reference Range is dependent on time and content of last meal. Glucose of more than 200 mg/dL in a nonstressed, ambulatory subject supports the diagnosis of Diabetes Mellitus. ADA recommended reference range Performed By: #### P TT, PT #### [address] Hematocrit [Volume Fraction] of Blood by Automated countOrdered By: Nas Pruett on 01-21-2024 Hematocrit (Bld) [Volume fraction] 37.1 % Low 38.8-50.0 [facility] Comment on above: Performed By: #### P TT, PT #### [facility] [address] [place] [address] [place] Hemoglobin [Mass/volume] in BloodOrdered By: Nas Pruett on 01-21-2024 Hemoglobin (Bld) [Mass/Vol] 12.2 g/dL Low 13.0-17.0 [facility] Comment on above: Performed By: #### P TT, PT #### [place] [address] [place] Leukocytes [#/volume] correc phil for nucleated erythrocytes in Blood by Automated counOrdered By: Nas Pruett on 01-21-2024 WBC corrected for nucl RBC Auto (Bld) [#/Vol] 8.8 10*3/uL 4.1-10.5 [facility] Leukocytes [#/volume] in Blo od by Automated countOrdered By: Nas Pruett on 01-21-2024 WBC (Bld) [#/Vol] 8.8 10*3/uL Normal 4.1-10.5 [facility] Comment on above: Performed By: #### P TT, PT #### [facility] [address] [place] [address] [place] Lymphocytes [#/volume] in Bl ood by Automated countOrdered By: Nas Pruett on 01-21-2024 Lymphocytes (Bld) [#/Vol] 1.4 10*3/uL Normal 1.00-4.8 [facility] Comment on above: Performed By: #### P TT, PT #### [facility] [address] [place] [address] Lymphocytes/100 leukocytes i n Blood by Automated countOrdered By: Nas Pruett on 01-21-2024 Lymphocytes/100 WBC (Bld) 15.6 % Normal . [facility] Comment on above: Performed By: #### P TT, PT #### [address] MCH [Entitic mass] by Automa phil countOrdered By: Nas Pruett on 01-21-2024 MCH (RBC) [Entitic mass] 28.1 pg Normal 27.5-35.2 [facility] Comment on above: Performed By: #### P TT, PT #### [facility] [address] [place] [address] MCHC Auto (RBC) [Mass/Vol]Or dered By: Nas Pruett on 01-21-2024 MCHC (RBC) [Mass/Vol] 32.9 g/dL 32.5-35.6 [facility] MCV [Entitic volume] by Auto mated countOrdered By: Nas Pruett on 01-21-2024 MCV (RBC) [Entitic vol] 85.6 fL Normal 83.5-101 [facility] Comment on above: Performed By: #### P TT, PT #### [facility] [address] [place] [address] Neutrophils [#/volume] in Bl ood by Automated countOrdered By: Nas Pruett on 01-21-2024 Neutrophils (Bld) [#/Vol] 5.7 10*3/uL Normal 1.8-7.7 [facility] Comment on above: Performed By: #### P TT, PT #### [address] No Panel InformationOrdered By: Nas Pruett on 01-21-2024 Estimated GFR (CKD-EPI) 43.613 mL/Min [facility] Creatinine Clearance (Chem 46.56 [facility] Nucleated erythrocytes [Pres ence] in Blood by Automated countOrdered By: Nas Pruett on 01-21-2024 Nucleated RBC Auto Ql (Bld) 0.1 /100{WBC} 0-0.5 [facility] Platelet mean volume [Entiti c volume] in Blood by Automated countOrdered By: Nas Pruett on 01-21-2024 Platelet mean volume (Bld) [Entitic vol] 8.4 fL Normal 6.6-10.1 [facility] Comment on above: Performed By: #### P TT, PT #### [facility] [address] [place] [address] Platelets [#/volume] in Bloo d by Automated countOrdered By: Nas Pruett on 01-21-2024 Platelets (Bld) [#/Vol] 221 10*3/uL Normal 150-450 [facility] Comment on above: Performed By: #### P TT, PT #### [facility] [address] [place] [address] Potassium [Moles/volume] in Serum or PlasmaOrdered By: Nas Pruett on 01-21-2024 Potassium [Moles/Vol] 3.9 mmol/L Normal 3.5-5.1 [facility] Comment on above: Performed By: #### P TT, PT #### [address] [place] [address] [place] Serum or plasma anion gap de terminationOrdered By: Nas Pruett on 01-21-2024 Anion gap [Moles/Vol] 13.8 mmol/L Normal 6.0-15.0 [facility] Comment on above: Performed By: #### P TT, PT #### [address] Sodium [Moles/volume] in Ser um or PlasmaOrdered By: Nas Pruett on 01-21-2024 Sodium [Moles/Vol] 137 mmol/L Normal 136-145 [facility] Comment on above: Performed By: #### P TT, PT #### [address] Urea nitrogen [Mass/volume] in Serum or PlasmaOrdered By: Nas Pruett on 01-21-2024 Urea nitrogen [Mass/Vol] 35 mg/dL High 7-25 [facility] Comment on above: Performed By: #### P TT, PT #### [address] Basic Metabolic Panelon 12-25 Anion gap [Moles/Vol] 12.0 mmol/L Normal 6.0-15.0 [facility] Comment on above: Performed By: #### A DDONUAPLUS, CUU #### [address] Calcium [Mass/Vol] 8.4 mg/dL Low 8.6-10.3 [facility] Comment on above: Performed By: #### A DDONUAPLUS, CUU #### [place] [address] [place] Chloride [Moles/Vol] 107 mmol/L Normal 98-107 [facility] Comment on above: Performed By: #### A DDONUAPLUS, CUU #### [address] CO2 [Moles/Vol] 19.5 mmol/L Low 21.0-31.0 [facility] Comment on above: Performed By: #### A DDONUAPLUS, CUU #### [facility] [address] [place] [address] [place] Creatinine [Mass/Vol] 1.50 mg/dL High 0.70-1.30 [facility] Comment on above: Performed By: #### A ИРИНА, CUU #### [place] [address] [place] Creatinine Clr Calc Pharmacy 49.40 Normal [facility] Comment on above: Result Comment: PERF ORMED BY: [place] [address] PATHOLOGIST [employer]EN OWEN M.D. Performed By: #### A ИРИНА, CUU #### [place] [address] [place] GFR/1.73 sq M.predicted MDRD (S/P/Bld) [Vol rate/Area] 46.772 mL/min/{1.73_m2} Normal [facility] Comment on above: Performed By: #### A ИРИНА, CUU #### [place] [address] [place] Glucose [Mass/Vol] 136 mg/dL High 70-100 [facility] Comment on above: Result Comment: [place] Glucose Reference Range is dependent on time and content of last meal. Glucose of more than 200 mg/dL in a nonstressed, ambulatory subject supports the diagnosis of Diabetes Mellitus. ADA recommended reference range Performed By: #### A NAVUAJONATHAN, CUU #### [place] [address] [place] Potassium [Moles/Vol] 3.5 mmol/L Normal 3.5-5.1 [facility] Comment on above: Performed By: #### A DELANEYPLUS, CUU #### [address] Sodium [Moles/Vol] 135 mmol/L Low 136-145 [facility] Comment on above: Performed By: #### A ИРИНА, CUU #### [address] [place] [address] [place] Urea nitrogen [Mass/Vol] 32 mg/dL High 7-25 [facility] Comment on above: Performed By: #### A ИРИНА, CUU #### [address] Complete Blood Count Auto Di ffon 01-20-2024 Basophils (Bld) [#/Vol] 0.0 10*3/uL Normal 0.0-0.2 [facility] Comment on above: Result Comment: PERF ORMED BY: [place] [address] PATHOLOGIST [employer]EN OWEN M.D. Performed By: #### A ИРИНА, CUU #### [address] Basophils/100 WBC (Bld) 0.3 % Normal . [facility] Comment on above: Performed By: #### A ИРИНА, CUU #### [address] Eosinophils (Bld) [#/Vol] 0.2 10*3/uL Normal 0.0-0.45 [facility] Comment on above: Performed By: #### A ИРИНА CUU #### [address] Eosinophils/100 WBC (Bld) 1.7 % Normal . [facility] Comment on above: Performed By: #### A ИРИНА, CUU #### [address] Erythrocyte distribution width (RBC) [Ratio] 15.4 % High 12.0-14.8 [facility] Comment on above: Performed By: #### A ИРИНА, CUU #### [address] Hematocrit (Bld) [Volume fraction] 37.6 % Low 38.8-50.0 [facility] Comment on above: Performed By: #### A ИРИНА, CUU #### [address] Hemoglobin (Bld) [Mass/Vol] 12.5 g/dL Low 13.0-17.0 [facility] Comment on above: Performed By: #### A DDONUAPLUS, CUU #### [address] Lymphocytes (Bld) [#/Vol] 1.1 10*3/uL Normal 1.00-4.8 [facility] Comment on above: Performed By: #### A DDONUAPLUS, CUU #### [address] Lymphocytes/100 WBC (Bld) 11.8 % Normal . [facility] Comment on above: Performed By: #### A DDONUAPLUS, CUU #### [address] MCH (RBC) [Entitic mass] 28.5 pg Normal 27.5-35.2 [facility] Comment on above: Performed By: #### A DDONUAPLUS, CUU #### [address] MCV (RBC) [Entitic vol] 85.9 fL Normal 83.5-101 [facility] Comment on above: Performed By: #### A DDONUAPLUS, CUU #### [address] Mean Corpuscular HGB Conc 33.2 g/dL Normal 32.5-35.6 [facility] Comment on above: Performed By: #### A DDONUAPLUS, CUU #### [place] [address] [place] Monocytes (Bld) [#/Vol] 1.4 10*3/uL High 0.0-0.8 [facility] Comment on above: Performed By: #### A DDONUAPLUS, CUU #### [place] [address] [place] Monocytes/100 WBC (Bld) 14.3 % Normal . [facility] Comment on above: Performed By: #### A DDONUAPLUS, CUU #### [address] Neutrophils (Bld) [#/Vol] 6.8 10*3/uL Normal 1.8-7.7 [facility] Comment on above: Performed By: #### A DDMOEUAPLUS, CUU #### [address] Neutrophils/100 WBC (Bld) 71.9 % Normal . [facility] Comment on above: Performed By: #### A DDMOEUAPLUS, CUU #### [address] NRBC% 0.0 /100{WBC} Normal 0-0.5 [facility] Comment on above: Performed By: #### A ИРИНА, CUU #### [address] Platelet mean volume (Bld) [Entitic vol] 8.3 fL Normal 6.6-10.1 [facility] Comment on above: Performed By: #### A ИРИНА, CUU #### [address] Platelets (Bld) [#/Vol] 202 10*3/uL Normal 150-450 [facility] Comment on above: Performed By: #### A DDONUAPLUS, CUU #### [address] RBC (Bld) [#/Vol] 4.38 10*6/uL Normal 3.90-5.60 [facility] Comment on above: Performed By: #### A DDMOEUAPLUS, CUU #### [address] WBC (Bld) [#/Vol] 9.5 10*3/uL Normal 4.1-10.5 [facility] Comment on above: Performed By: #### A DDONUAPLUS, CUU #### [address] Magnesium [Mass/volume] in S marium or PlasmaOrdered By: Isaac Edwards on 01-20-2024 Magnesium [Mass/Vol] 2.1 mg/dL Normal 1.9-2.7 [facility] Comment on above: Result Comment: PERF ORMED BY: [place] [address] PATHOLOGIST [employer] OWEN M.D. Performed By: #### A ИРИНА, MAISHAU #### [address] Basic Metabolic Panelon 12-25 Anion gap [Moles/Vol] 11.7 mmol/L Normal 6.0-15.0 [facility] Comment on above: Performed By: #### P ATH TO [facility] #### [address] Calcium [Mass/Vol] 8.5 mg/dL Low 8.6-10.3 [facility] Comment on above: Performed By: #### P ATH TO [facility] #### [address] Chloride [Moles/Vol] 106 mmol/L Normal 98-107 [facility] Comment on above: Performed By: #### P ATH TO [facility] #### [address] CO2 [Moles/Vol] 19.9 mmol/L Low 21.0-31.0 [facility] Comment on above: Performed By: #### P ATH TO [facility] #### [place] [address] [place] Creatinine [Mass/Vol] 1.62 mg/dL High 0.70-1.30 [facility] Comment on above: Performed By: #### P ATH TO [facility] #### [address] Creatinine Clr Calc Pharmacy 42.28 Normal [facility] Comment on above: Result Comment: PERF ORMED BY: [place] [address] PATHOLOGIST [employer]EN OWEN M.D. Performed By: #### P ATH TO [facility] #### [place] [address] [place] GFR/1.73 sq M.predicted MDRD (S/P/Bld) [Vol rate/Area] 42.646 mL/min/{1.73_m2} Normal [facility] Comment on above: Performed By: #### P ATH TO [facility] #### [place] [address] [place] Glucose [Mass/Vol] 145 mg/dL High 70-100 [facility] Comment on above: Result Comment: [place] Glucose Reference Range is dependent on time and content of last meal. Glucose of more than 200 mg/dL in a nonstressed, ambulatory subject supports the diagnosis of Diabetes Mellitus. ADA recommended reference range Performed By: #### P ATH TO [facility] #### [place] [address] [place] Potassium [Moles/Vol] 3.6 mmol/L Normal 3.5-5.1 [facility] Comment on above: Performed By: #### P ATH TO [facility] #### [place] [address] [place] Sodium [Moles/Vol] 134 mmol/L Low 136-145 [facility] Comment on above: Performed By: #### P ATH TO [facility] #### [place] [address] [place] Urea nitrogen [Mass/Vol] 32 mg/dL High 7-25 [facility] Comment on above: Performed By: #### P ATH TO [facility] #### [address] Complete Blood Count Auto Di ffon 01-19-2024 Basophils (Bld) [#/Vol] 0.0 10*3/uL Normal 0.0-0.2 [facility] Comment on above: Result Comment: PERF ORMED BY: [place] [address] PATHOLOGIST [employer]EN OWEN M.D. Performed By: #### A ИРИНА, CUU #### [address] Basophils/100 WBC (Bld) 0.4 % Normal . [facility] Comment on above: Performed By: #### A ИРИНА, CUU #### [address] Eosinophils (Bld) [#/Vol] 0.0 10*3/uL Normal 0.0-0.45 [facility] Comment on above: Performed By: #### A ИРИНА CUU #### [address] Eosinophils/100 WBC (Bld) 0.4 % Normal . [facility] Comment on above: Performed By: #### A ИРИНА, CUU #### [address] Erythrocyte distribution width (RBC) [Ratio] 15.6 % High 12.0-14.8 [facility] Comment on above: Performed By: #### A ИРИНА CUU #### [address] Hematocrit (Bld) [Volume fraction] 37.1 % Low 38.8-50.0 [facility] Comment on above: Performed By: #### A ИРИНА, CUU #### [address] Hemoglobin (Bld) [Mass/Vol] 12.3 g/dL Low 13.0-17.0 [facility] Comment on above: Performed By: #### A ИРИНА, CUU #### [address] Lymphocytes (Bld) [#/Vol] 1.0 10*3/uL Normal 1.00-4.8 [facility] Comment on above: Performed By: #### A DELANEYPLUS, CUU #### [facility] [address] Lymphocytes/100 WBC (Bld) 8.8 % Normal . [facility] Comment on above: Performed By: #### A DDONUAPLUS, CUU #### [address] MCH (RBC) [Entitic mass] 28.6 pg Normal 27.5-35.2 [facility] Comment on above: Performed By: #### A DDONUAPLUS, CUU #### [address] MCV (RBC) [Entitic vol] 86.5 fL Normal 83.5-101 [facility] Comment on above: Performed By: #### A DDONUAPLUS, CUU #### [address] Mean Corpuscular HGB Conc 33.0 g/dL Normal 32.5-35.6 [facility] Comment on above: Performed By: #### A DDONUAPLUS, CUU #### [place] [address] [place] Monocytes (Bld) [#/Vol] 1.3 10*3/uL High 0.0-0.8 [facility] Comment on above: Performed By: #### A DDONUAPLUS, CUU #### [place] [address] [place] Monocytes/100 WBC (Bld) 11.9 % Normal . [facility] Comment on above: Performed By: #### A DDONUAPLUS, CUU #### [place] [address] [place] Neutrophils (Bld) [#/Vol] 8.6 10*3/uL High 1.8-7.7 [facility] Comment on above: Performed By: #### A DDONUAPLUS, CUU #### [place] [address] [place] Neutrophils/100 WBC (Bld) 78.5 % Normal . [facility] Comment on above: Performed By: #### A DDONUAPLUS, CUU #### [address] NRBC% 0.1 /100{WBC} Normal 0-0.5 [facility] Comment on above: Performed By: #### A DDONUAPLUS, CUU #### [address] Platelet mean volume (Bld) [Entitic vol] 8.9 fL Normal 6.6-10.1 [facility] Comment on above: Performed By: #### A NAVUAJONATHAN, CUU #### [address] Platelets (Bld) [#/Vol] 165 10*3/uL Normal 150-450 [facility] Comment on above: Performed By: #### A ИРИНА, CUU #### [address] RBC (Bld) [#/Vol] 4.30 10*6/uL Normal 3.90-5.60 [facility] Comment on above: Performed By: #### A DDMOEUAPLUS, CUU #### [address] WBC (Bld) [#/Vol] 11.0 10*3/uL High 4.1-10.5 [facility] Comment on above: Performed By: #### A ИРИНА, CUU #### [address] ECG 12 lead ECGon 01-19-2024 ECG 12 lead ECG [facility] [place] [address] Electrocardiograph Report Signed Patient: Alex Anderson MR#: [id number] [birth year] : 1945 Acct:[id number] Age/Sex: 78 / M ADM Date: 01/16/24 Loc: Room: [address] [place] [address] Type: ADM IN Attending Dr: Nas Pruett [...] or before 16-Jan-2024) Inferolateral injury pattern ACUTE MD / STEMI Abnormal ECG When compared with ECG of 18-Jan-2024 07:08, No significant change was found Confirmed by Misael Campbell ([id number]) on 01/20/2024 10:18:21 PM Referred By: Electronically Signed By: Misael Campbell Transcribed By: MUS Signed By Misael Campbell MD 01/20/24 5089 Normal [facility] Basic Metabolic Panelon 12-25 Anion gap [Moles/Vol] 11.5 mmol/L Normal 6.0-15.0 [facility] Comment on above: Performed By: #### C BC, BMP #### [facility] [address] [place] [id number] [place] Calcium [Mass/Vol] 8.7 mg/dL Normal 8.6-10.3 [facility] Comment on above: Performed By: #### C BC, BMP #### [facility] [address] [place] [id number] [place] Chloride [Moles/Vol] 107 mmol/L Normal 98-107 [facility] Comment on above: Performed By: #### C BC, BMP #### [facility] [address] [place] [address] [place] CO2 [Moles/Vol] 21.2 mmol/L Normal 21.0-31.0 [facility] Comment on above: Performed By: #### C BC, BMP #### [facility] [address] [place] [id number] [place] Creatinine [Mass/Vol] 1.59 mg/dL High 0.70-1.30 [facility] Comment on above: Performed By: #### C BC, BMP #### [address] Creatinine Clr Calc Pharmacy 46.65 Normal [facility] Comment on above: Result Comment: PERF ORMED BY: [place] [address] PATHOLOGIST [employer]EN OWEN M.D. Performed By: #### C BC, BMP #### [place] [address] [place] GFR/1.73 sq M.predicted MDRD (S/P/Bld) [Vol rate/Area] 43.613 mL/min/{1.73_m2} Normal [facility] Comment on above: Performed By: #### C BC, BMP #### [address] Glucose [Mass/Vol] 125 mg/dL High 70-100 [facility] Comment on above: Result Comment: [place] Glucose Reference Range is dependent on time and content of last meal. Glucose of more than 200 mg/dL in a nonstressed, ambulatory subject supports the diagnosis of Diabetes Mellitus. ADA recommended reference range Performed By: #### C BC, BMP #### [address] Potassium [Moles/Vol] 3.7 mmol/L Normal 3.5-5.1 [facility] Comment on above: Performed By: #### C BC, BMP #### [place] [address] [place] Sodium [Moles/Vol] 136 mmol/L Normal 136-145 [facility] Comment on above: Performed By: #### C BC, BMP #### [place] [address] [place] Urea nitrogen [Mass/Vol] 29 mg/dL High 7-25 [facility] Comment on above: Performed By: #### C BC, BMP #### [place] [address] [place] Complete Blood Count Auto Di ffon 01-18-2024 Basophils (Bld) [#/Vol] 0.0 10*3/uL Normal 0.0-0.2 [facility] Comment on above: Result Comment: PERF ORMED BY: [place] [address] PATHOLOGIST [employer]EN OWEN M.D. Performed By: #### C BC, BMP #### [address] Basophils/100 WBC (Bld) 0.4 % Normal . [facility] Comment on above: Performed By: #### C BC, BMP #### [place] [address] [place] Eosinophils (Bld) [#/Vol] 0.0 10*3/uL Normal 0.0-0.45 [facility] Comment on above: Performed By: #### C BC, BMP #### [address] Eosinophils/100 WBC (Bld) 0.2 % Normal . [facility] Comment on above: Performed By: #### C BC, BMP #### [address] Erythrocyte distribution width (RBC) [Ratio] 15.9 % High 12.0-14.8 [facility] Comment on above: Performed By: #### C BC, BMP #### [address] Hematocrit (Bld) [Volume fraction] 38.2 % Low 38.8-50.0 [facility] Comment on above: Performed By: #### C BC, BMP #### [address] Hemoglobin (Bld) [Mass/Vol] 12.7 g/dL Low 13.0-17.0 [facility] Comment on above: Performed By: #### C BC, BMP #### [address] Lymphocytes (Bld) [#/Vol] 1.4 10*3/uL Normal 1.00-4.8 [facility] Comment on above: Performed By: #### C BC, BMP #### [address] Lymphocytes/100 WBC (Bld) 11.5 % Normal . [facility] Comment on above: Performed By: #### C BC, BMP #### [address] MCH (RBC) [Entitic mass] 28.5 pg Normal 27.5-35.2 [facility] Comment on above: Performed By: #### C BC, BMP #### [address] MCV (RBC) [Entitic vol] 85.4 fL Normal 83.5-101 [facility] Comment on above: Performed By: #### C BC, BMP #### [address] Mean Corpuscular HGB Conc 33.4 g/dL Normal 32.5-35.6 [facility] Comment on above: Performed By: #### C BC, BMP #### [place] [address] [place] Monocytes (Bld) [#/Vol] 1.5 10*3/uL High 0.0-0.8 [facility] Comment on above: Performed By: #### C BC, BMP #### [place] [address] [place] Monocytes/100 WBC (Bld) 12.8 % Normal . [facility] Comment on above: Performed By: #### C BC, BMP #### [address] Neutrophils (Bld) [#/Vol] 9.1 10*3/uL High 1.8-7.7 [facility] Comment on above: Performed By: #### C BC, BMP #### [address] Neutrophils/100 WBC (Bld) 75.1 % Normal . [facility] Comment on above: Performed By: #### C BC, BMP #### [address] NRBC% 0.0 /100{WBC} Normal 0-0.5 [facility] Comment on above: Performed By: #### C ANA, BMP #### [address] Platelet mean volume (Bld) [Entitic vol] 9.3 fL Normal 6.6-10.1 [facility] Comment on above: Performed By: #### C ANA, BMP #### [address] Platelets (Bld) [#/Vol] 131 10*3/uL Low 150-450 [facility] Comment on above: Performed By: #### C ANA, BMP #### [address] RBC (Bld) [#/Vol] 4.47 10*6/uL Normal 3.90-5.60 [facility] Comment on above: Performed By: #### C ANA, BMP #### [address] WBC (Bld) [#/Vol] 12.1 10*3/uL High 4.1-10.5 [facility] Comment on above: Performed By: #### C ANA, BMP #### [address] ECG 12 lead ECGon 01-18-2024 ECG 12 lead ECG [facility] [place] [address] Electrocardiograph Report Signed Patient: Alex Anderson MR#: [id number] 38 : 1945 Acct:[id number] Age/Sex: 78 / M ADM Date: 01/16/24 Loc: Room: [address] [place] [address] Type: ADM IN Attending Dr: Nas Pruett [...] Castro MD 0 01/18/24 1102 Normal [facility] Basic Metabolic Panelon 12-25 Anion gap [Moles/Vol] 12.3 mmol/L Normal 6.0-15.0 [facility] Comment on above: Performed By: #### A ИРИНА CUU #### [address] Calcium [Mass/Vol] 8.9 mg/dL Normal 8.6-10.3 [facility] Comment on above: Performed By: #### A ИРИНА CUU #### [address] Chloride [Moles/Vol] 105 mmol/L Normal 98-107 [facility] Comment on above: Performed By: #### A ИРИНА CUU #### [facility] [address] CO2 [Moles/Vol] 22.2 mmol/L Normal 21.0-31.0 [facility] Comment on above: Performed By: #### A ИРИНА CUU #### [facility] [address] Creatinine [Mass/Vol] 1.70 mg/dL High 0.70-1.30 [facility] Comment on above: Performed By: #### A ИРИНА CUU #### [facility] [address] [place] [address] [place] Creatinine Clr Calc Pharmacy 44.35 Normal [facility] Comment on above: Performed By: #### A ИРИНА CUU #### [facility] [address] [place] [address] [place] GFR/1.73 sq M.predicted MDRD (S/P/Bld) [Vol rate/Area] 40.249 mL/min/{1.73_m2} Normal [facility] Comment on above: Performed By: #### A ИРИНА, CUU #### [address] Glucose [Mass/Vol] 115 mg/dL High 70-100 [facility] Comment on above: Result Comment: [place] om Glucose Reference Range is dependent on time and content of last meal. Glucose of more than 200 mg/dL in a nonstressed, ambulatory subject supports the diagnosis of Diabetes Mellitus. ADA recommended reference range Performed By: #### A ИРИНА CUU #### [address] Potassium [Moles/Vol] 4.5 mmol/L Normal 3.5-5.1 [facility] Comment on above: Performed By: #### A ИРИНА CUU #### [address] Sodium [Moles/Vol] 135 mmol/L Low 136-145 [facility] Comment on above: Performed By: #### A ИРИНА, CUU #### [address] Urea nitrogen [Mass/Vol] 26 mg/dL High 7-25 [facility] Comment on above: Performed By: #### A ИРИНА, CUU #### [facility] [address] Capillary blood glucose elan urement by glucometer (mass/volume)Ordered By: Nas Pruett on 01-17-2024 Glucose [Mass/Vol] 126 mg/dL Normal [facility] Comment on above: Random Glucose Refer ence Range is dependent on time and content of last meal. Glucose of more than 200 mg/dL in a nonstressed, ambulatory subject supports the diagnosis of Diabetes Mellitus. Result Comment: [facility] Glucose Reference Range is dependent on time and content of last meal. Glucose of more than 200 mg/dL in a nonstressed, ambulatory subject supports the diagnosis of Diabetes Mellitus. PERFORMED BY: [place] [address] PATHOLOGIST [employer]EN OWEN M.D. Performed By: #### A DORAONUAPLUS, CUU #### [place] [address] [place] Cholesterol [Mass/volume] in Serum or PlasmaOrdered By: Nas Pruett on 01-17-2024 Cholesterol [Mass/Vol] 74 mg/dL Low 140-200 [facility] Comment on above: Chol less than 200 m g/dl low riskChol 201-239 mg/dl borderline riskChol 240 mg/dl and greater high risk Result Comment: Chol less than 200 mg/dl low risk Chol 201-239 mg/dl borderline risk Chol 240 mg/dl and greater high risk Performed By: #### A DORAONUAPLUS, CUU #### [facility] [address] [place] [address] [place] Cholesterol in LDL Calc [Mas s/Vol]Ordered By: Nas Pruett on 01-17-2024 Cholesterol in LDL [Mass/Vol] 28 mg/dL 0-100 [facility] Comment on above: LDL ATP III CLASSIFI CATIONLDL less than 100 mg/dL OptimalLDL 100-129 mg/dL Near or above optimalLDL 130-159 mg/dL Borderline highLDL 160-189 mg/dL HighLDL greater than 189 mg/dL Very high Cholesterol in VLDL Calc [Ma ss/Vol]Ordered By: Nas Pruett on 01-17-2024 Cholesterol in VLDL [Mass/Vol] 13 mg/dL [facility] Dipstick and Microscopicon 0 01-17-2024 Appearance (U) Cloudy Critically abnormal Clear [facility] Comment on above: Order Comment: Name Collection Type:: Villarreal Catheter Performed By: #### A DDONUAPLUS, CUU #### [facility] [address] [place] [address] [place] Bacteria,Urine 2+ High None Seen [facility] Comment on above: Order Comment: Name Collection Type:: Villarreal Catheter Performed By: #### A DDONUAPLUS, CUU #### [place] [address] [place] Bilirubin,Urine Negative Normal Negative [facility] Comment on above: Order Comment: Name Collection Type:: Villarreal Catheter Performed By: #### A DDONUAPLUS, CUU #### [address] Color (U) Light-Yellow Normal Yellow [facility] Comment on above: Order Comment: Name Collection Type:: Villarreal Catheter Performed By: #### A DDONUAPLUS, CUU #### [address] Glucose Ql (U) Normal Normal Normal [facility] Comment on above: Order Comment: Name Collection Type:: Villarreal Catheter Performed By: #### A DDONUAPLUS, CUU #### [place] [address] [place] Hyaline Casts,Urine None Normal 0-8 [facility] Comment on above: Order Comment: Name Collection Type:: Villarreal Catheter Performed By: #### A DDONUAPLUS, CUU #### [address] Ketones Ql (U) Negative Normal Negative [facility] Comment on above: Order Comment: Name Collection Type:: Villarreal Catheter Performed By: #### A DDONUAPLUS, CUU #### [address] Leukocyte esterase Test strip Ql (U) 3+ High Negative [facility] Comment on above: Order Comment: Name Collection Type:: Villarreal Catheter Performed By: #### A DDONUAPLUS, CUU #### [place] [address] [place] Mucus,Urine Rare Normal [facility] Comment on above: Order Comment: Name Collection Type:: Villarreal Catheter Result Comment: PERF ORMED BY: [place] [id number] PATHOLOGIST [employer] OREN OWEN M.D. Performed By: #### A DDONUAPLUS, CUU #### [place] [address] [place] Nitrite,Urine Negative Normal Negative [facility] Comment on above: Order Comment: Name Collection Type:: Villarreal Catheter Performed By: #### A DDONUAPLUS, CUU #### [address] Occult Blood,Urine Trace High Negative [facility] Comment on above: Order Comment: Name Collection Type:: Villarreal Catheter Result Comment: PERF ORMED BY: [place] [address] PATHOLOGIST RIV[employer] OREN OWEN M.D. Performed By: #### A DDONUAPLUS, CUU #### [address] pH (U) 6.0 [pH] Normal 5.0-9.0 [facility] Comment on above: Order Comment: Name Collection Type:: Villarreal Catheter Performed By: #### A DDONUAPLUS, CUU #### [place] [address] [place] Protein,Urine Trace High Negative [facility] Comment on above: Order Comment: Name Collection Type:: Villarreal Catheter Performed By: #### A DDONUAPLUS, CUU #### [place] [address] [place] RBC,Urine 3-4 Normal 0-4 [facility] Comment on above: Order Comment: Name Collection Type:: Villarreal Catheter Performed By: #### A DDONUAPLUS, CUU #### [place] [address] [place] Specificy [place],Urine 1.018 Normal 1.00 1-1.03 0 [facility] Comment on above: Order Comment: Name Collection Type:: Villarreal Catheter Performed By: #### A DDONUAPLUS, CUU #### [place] [address] [place] Squamous Epithelial Cell,Urine 1-2 Normal 0-2 [facility] Comment on above: Order Comment: Name Collection Type:: Villarreal Catheter Performed By: #### A DDONUAPLUS, CUU #### [facility] [address] Urobilinogen,Urine Normal Normal Normal [facility] Comment on above: Order Comment: Name Collection Type:: Villarreal Catheter Performed By: #### A DDONUAPLUS, CUU #### [address] WBC,Urine 10-19 High 0-4 [facility] Comment on above: Order Comment: Name Collection Type:: Villarreal Catheter Performed By: #### A DDONUAPLUS, CUU #### [address] ECG 12 lead ECGon 01-17-2024 ECG 12 lead ECG [facility] Main [facility] [address] [place] [address] Electrocardiograph Report Signed Patient: Alex Anderson MR#: [id number] [birth year] : 1945 Acct:[id number] Age/Sex: 78 / M ADM Date: 01/16/24 Loc: Room: [address] [place] [address] Type: ADM IN Attending Dr: Nas Pruett [...] or before 16-Jan-2024) Inferior injury pattern ACUTE MD / STEMI Abnormal ECG When compared with ECG of 16-Jan-2024 19:53, (Unconfirmed) Serial changes of evolving Septal infarct present Confirmed by MATTHEW CASILLAS, ANA ([id number]) on 01/17/2024 9:52:42 AM Referred By: Electronically Signed By: ANA CASTRO MD Transcribed By: MUS Signed By Ana Castro MD 0 01/17/24 0952 Normal [facility] echo transthoracicon [facility] echo transthoracic [facility] Main [facility] [address] [place] [address] Echocardiogram Signed Patient: Alex Anderson MR#: [id number] [birth year] : 1945 Acct:[id number] Age/Sex: 78 / M ADM Date: 01/16/24 Loc: Room: [address] [place] [address] Type: ADM IN Attending Dr: Nas Pruett DO Ordering Provider: Nas Pruett DO Date of Service: 01/17/24 [facility] echo transthoracic: Ant STEMI Copies to: MD [...] Ana Castro MD 01/17/24 1150 Normal [facility] Glucose Poct Glucometerson 0 01-17-2024 Glucose [Mass/Vol] 115 mg/dL Normal [facility] Comment on above: Result Comment: [facility] Glucose Reference Range is dependent on time and content of last meal. Glucose of more than 200 mg/dL in a nonstressed, ambulatory subject supports the diagnosis of Diabetes Mellitus. PERFORMED BY: [place] [address] PATHOLOGIST [employer] OREN OWEN M.D. Performed By: #### P TT, PT #### [address] Glucose [Mass/Vol] 114 mg/dL Normal [facility] Comment on above: Result Comment: [place] Glucose Reference Range is dependent on time and content of last meal. Glucose of more than 200 mg/dL in a nonstressed, ambulatory subject supports the diagnosis of Diabetes Mellitus. PERFORMED BY: [place] [address] PATHOLOGIST R[employer] OREN OWEN M.D. Performed By: #### A DDONUAPLUS, CUU #### [address] Glucose [Mass/Vol] 125 mg/dL Normal [facility] Comment on above: Result Comment: [place] Glucose Reference Range is dependent on time and content of last meal. Glucose of more than 200 mg/dL in a nonstressed, ambulatory subject supports the diagnosis of Diabetes Mellitus. PERFORMED BY: [place] [address] PATHOLOGIST [employer] OREN OWEN M.D. Performed By: #### P TT, PT #### [address] Lipid Panelon 01-17-2024 LDL Cholesterol,Calculated 28 mg/dL Normal 0-100 [facility] Comment on above: Result Comment: LDL ATP III CLASSIFICATION LDL less than 100 mg/dL Optimal LDL 100-129 mg/dL Near or above optimal LDL 130-159 mg/dL Borderline high LDL 160-189 mg/dL High LDL greater than 189 mg/dL Very high Performed By: #### A DDONUAPLUS, CUU #### [address] Triglyceride w/Reflex 67 mg/dL Normal 0-149 [facility] Comment on above: Result Comment: TRIG ATP III CLASSIFICATION TRIG less than 150 mg/dL Normal TRIG 150-199 mg/dL Borderline high TRIG 200-500 mg/dL High TRIG greater than 500 mg/dL Very high Standard traceable to the Center for Disease Conrtrol and Prevention (CDC) test method. Performed By: #### A DDONUAPLUS, CUU #### [address] VLDL CHOLESTEROL 13 mg/dL Normal [facility] Comment on above: Performed By: #### A DDONUAPLUS, CUU #### [address] Platelet adequacy [Presence] in Blood by Light microscopyOrdered By: Nas Pruett on 01-17-2024 Platelets LM Ql (Bld) Decreased Normal Fir [facility] Platelet morphology finding [Identifier] in BloodOrdered By: Nas Pruett on 01-17-2024 Platelet morphology finding Nom (Bld) Normal Normal [facility] RBC morphologyOrdered By: Nas Pruett on 01-17-2024 RBC morphology finding Nom (Bld) N/A [facility] Scan and CBCon 01-17-2024 Basophils (Bld) [#/Vol] 0.1 10*3/uL Normal 0.0-0.2 [facility] Comment on above: Result Comment: PERF ORMED BY: [place] [address] PATHOLOGIST R[employer] OREN OWEN M.D. Performed By: #### A ИРИНА, CUU #### [address] Basophils/100 WBC (Bld) 0.4 % Normal . T jonatan [facility] Comment on above: Performed By: #### A ИРИНА, CUU #### [address] Eosinophils (Bld) [#/Vol] 0.0 10*3/uL Normal 0.0-0.45 [facility] Comment on above: Performed By: #### A ИРИНА, CUU #### [place] [address] [place] Eosinophils/100 WBC (Bld) 0.0 % Normal . [facility] Comment on above: Performed By: #### A ИРИНА, CUU #### [address] Erythrocyte distribution width (RBC) [Ratio] 15.8 % High 12.0-14.8 [facility] Comment on above: Performed By: #### A DDONUAPLUS, CUU #### [address] Hematocrit (Bld) [Volume fraction] 38.4 % Low 38.8-50.0 [facility] Comment on above: Performed By: #### A DDONUAPLUS, CUU #### [address] Hemoglobin (Bld) [Mass/Vol] 12.7 g/dL Low 13.0-17.0 [facility] Comment on above: Performed By: #### A DDONUAPLUS, CUU #### [address] Lymphocytes (Bld) [#/Vol] 1.2 10*3/uL Normal 1.00-4.8 [facility] Comment on above: Performed By: #### A DDONUAPLUS, CUU #### [address] Lymphocytes/100 WBC (Bld) 6.9 % Normal . [facility] Comment on above: Performed By: #### A DDONUAPLUS, CUU #### [address] MCH (RBC) [Entitic mass] 28.4 pg Normal 27.5-35.2 [facility] Comment on above: Performed By: #### A DDONUAPLUS, CUU #### [address] MCV (RBC) [Entitic vol] 86.1 fL Normal 83.5-101 T [facility] Comment on above: Performed By: #### A DDONUAPLUS, CUU #### [address] Mean Corpuscular HGB Conc 33.0 g/dL Normal 32.5-35.6 [facility] Comment on above: Performed By: #### A DDONUAPLUS, CUU #### [address] Monocytes (Bld) [#/Vol] 2.8 10*3/uL High 0.0-0.8 [facility] Comment on above: Performed By: #### A DDONUAPLUS, CUU #### [address] Monocytes/100 WBC (Bld) 15.6 % Normal . T [facility] Comment on above: Performed By: #### A DDONUAPLUS, CUU #### [address] Neutrophils (Bld) [#/Vol] 13.6 10*3/uL High 1.8-7.7 [facility] Comment on above: Performed By: #### A DDONUAPLUS, CUU #### [address] Neutrophils/100 WBC (Bld) 77.1 % Normal . [facility] Comment on above: Performed By: #### A DDONUAPLUS, CUU #### [address] NRBC% 0.0 /100{WBC} Normal 0-0.5 [facility] Comment on above: Performed By: #### A DDONUAPLUS, CUU #### [address] Platelet Estimate Decreased Normal Normal [facility] Comment on above: Performed By: #### A DDONUAPLUS, CUU #### [address] Platelet mean volume (Bld) [Entitic vol] 9.0 fL Normal 6.6-10.1 [facility] Comment on above: Performed By: #### A DDONUAPLUS, CUU #### [address] Platelet Morphology Normal Normal Normal [facility] Comment on above: Result Comment: PERF ORMED BY: [place] [address] PATHOLOGIST R[employer] OREN OWEN M.D. Performed By: #### A DDONUAPLUS, CUU #### [facility] [address] Platelets (Bld) [#/Vol] 135 10*3/uL Low 150-450 [facility] Comment on above: Performed By: #### A DDONUAPLUS, CUU #### [facility] [address] RBC (Bld) [#/Vol] 4.46 10*6/uL Normal 3.90-5.60 [facility] Comment on above: Performed By: #### A DDONUAPLUS, CUU #### [facility] [address] WBC (Bld) [#/Vol] 17.7 10*3/uL High 4.1-10.5 [facility] Comment on above: Performed By: #### A DDONUAPLUS, CUU #### [address] Serum or plasma high density lipoprotein (HDL) cholesterol measurementOrdered By: Nas Pruett on 01-17-2024 Cholesterol in HDL [Mass/Vol] 33 mg/dL Normal 23-92 [facility] Comment on above: HDL CHOL ATP-III CLA SSIFICATION Cardiovascular RiskHDL > or equal to 60 mg/dL LOWHDL < 40 mg/dL HIGH Result Comment: HDL CHOL ATP-III CLASSIFICATION Cardiovascular Risk HDL > or equal to 60 mg/dL LOW HDL < 40 mg/dL HIGH Performed By: #### A DDONUAPLUS, CUU #### [address] Serum or plasma total choles terol/high density lipoprotein (HDL) cholesterol mass ratOrdered By: Nas Pruett on 01-17-2024 Cholesterol.total/Sonya sterol in HDL [Mass ratio] 2.2 {ratio} Normal <5.0 [facility] Comment on above: Result Comment: PERF ORMED BY: [place] [address] PATHOLOGIST RIV[employer] OREN OWEN M.D. Performed By: #### A DDONUAPLUS, CUU #### [facility] [address] [place] [address] Triglyceride [Mass/volume] i n Serum or PlasmaOrdered By: Nas Pruett on 01-17-2024 Triglyceride [Mass/Vol] 67 mg/dL 0-149 [facility] [place] Comment on above: TRIG ATP III CLASSIF ICATIONTRIG less than 150 mg/dL NormalTRIG 150-199 mg/dL Borderline highTRIG 200-500 mg/dL High TRIG greater than 500 mg/dL Very highStandard traceable to the Center for Disease Conrtrol and Prevention (CDC) test method. Troponin I High Sensitivityo n 01-17-2024 Troponin I High Sensitivity 17936.6 pg/mL Off scale high 0.0-20.0 [facility] Comment on above: Result Comment: Crit ical Result I_TnIHS_d:42215.6 Called to and read back by: WU MCDANIEL at: 01/17/2024 06:17:54 by:[id number] PERFORMED BY: [place] [address] PATHOLOGIST R[employer] P[employer]UM[employer] OREN OWEN M.D. Performed By: #### A DDMOEUAJONATHAN, [facility] #### [facility] [address] [place] [address] Troponin I.cardiac [Mass/vol ume] in Serum or Plasma by Detection limit <= 0.01 ng/Ordered By: Nas Pruett on 01-17-2024 Troponin I.cardiac DL <= 0.01 ng/mL [Mass/Vol] 09123.6 pg/mL High 0.0-20.0 [facility] Comment on above: Critical Result I_Tn IHS_d:15939.6 Called to and read back by: WU MCDANIEL at: 01/17/2024 06:17:54 by:[id number] Urine Cultureon 01-17-2024 Bacteria identified Cx Nom (U) ORGANISM: Enterococcus faecalis (O:ENTFAC) [place] Count >100,000 Aerobic RITESH Charge (PCMIC38) SUSCEPTIBILITY [...] RESISTANT TO ALL B-LACTAM DRUGS. PERFORMED BY: [place] [address] PATHOLOGIST RIV[employer]NEUM[employer] OREN OWEN M.D. Normal [facility] Comment on above: Performed By: #### P TT, PT #### [address] Urine culture routineOrdered By: Jusitna Lara on 01-17-2024 Bacteria identified Cx Nom (U) Enterococcus faecalis Abnormal [facility] XR chest 1V portableon 01-16 XR chest 1V portable [facility] Main [employer] [address] [place] [address] XRay Report Signed Patient: Alex Anderson MR#: [id number] [birth year] : 1945 Acct:[id number] Age/Sex: 78 / M ADM Date: 01/16/24 Loc: Room: [address] [place] [address] Type: ADM IN Attending Dr: Nas Pruett [...] Corky Max M.D.01/17/2024 11:34 AM Dictation Location: [place] [address] Transcribed By: [facility] 01/17/24 113 Dictated By: Corky Max II, MD 01/17/24 113 Signed By: 01/17/24 113 Normal [facility] ECG 12 lead ECGon 01-16-2024 ECG 12 lead ECG [facility] Main [place] [id number] Electrocardiograph Report Signed Patient: Alex Anderson MR#: [id number] [birth year] : 1945 Acct:[id number] Age/Sex: 78 / M ADM Date: 01/16/24 Loc: Room: [address] [place] [address] Type: ADM IN Attending Dr: Nas Pruett [...] Ana Castro MD 0 01/17/24 0952 Normal [facility] Phys[facility] ECG 12 lead ECG [facility] Main [address] [address] Electrocardiograph Report Signed Patient: Alex Anderson MR#: [id number] [birth year] : 1945 Acct:[id number] Age/Sex: 78 / M ADM Date: 01/16/24 Loc: Room: [address] [place] [address] Type: ADM IN Attending Dr: Nas Pruett [...] now present Confirmed by ANA CASTRO MD ([facility]) on 01/17/2024 12:57:40 AM Referred By: Electronically Signed By: ANA CASTRO MD Transcribed By: MUS Signed By Ana Castro MD 0 01/17/24 0057 Normal [facility] Glucose Poct Glucometerson 0 01-16-2024 Commemt1 Glu2: Cleaned Meter Normal [facility] Comment on above: Result Comment: PERF ORMED BY: [place] [address] PATHOLOGIST RIV[employer]NE[employer] OREN OWEN M.D. Performed By: #### A DDONUAPLUS, CUU #### [address] Glucose [Mass/Vol] 118 mg/dL Normal [facility] Comment on above: Result Comment: [place] Glucose Reference Range is dependent on time and content of last meal. Glucose of more than 200 mg/dL in a nonstressed, ambulatory subject supports the diagnosis of Diabetes Mellitus. Performed By: #### A DDONUAPLUS, CUU #### [address] Glucose [Mass/Vol] 119 mg/dL Normal [facility] Comment on above: Result Comment: [place] Glucose Reference Range is dependent on time and content of last meal. Glucose of more than 200 mg/dL in a nonstressed, ambulatory subject supports the diagnosis of Diabetes Mellitus. PERFORMED BY: [place] [address] PATHOLOGIST RIV[employer] PNEUM[employer] OREN OWEN M.D. Performed By: #### A ИРИНА, CUU #### [address] No Panel InformationOrdered By: Nas Pruett on 01-16-2024 Bedside Glucose Comment Glu2: cleaned meter [facility] Troponin I High Sensitivityo n 01-16-2024 Troponin I High Sensitivity 33660.2 pg/mL Off scale high 0.0-20.0 [facility] Comment on above: Result Comment: Crit ical Result I_TnIHS_d:85584.2 Called to and read back by: BRIDGETTE LUIS at: 01/16/2024 20:40:51 by:[id number] PERFORMED BY: [place] [address] PATHOLOGIST RIV[employer] PNEUM[employer] OREN OWEN M.D. Performed By: #### H S TROP #### [address] Troponin I High Sensitivity 429549.4 pg/mL Off scale high 0.0-20.0 [facility] Comment on above: Result Comment: Crit ical Result I_TnIHS_d:245174.4 Called to and read back by: BROOKE CANDELARIA at: 01/16/2024 18:52:06 by:[email or web address] PERFORMED BY: [place] [address] PATHOLOGIST RIVETER PNEUMATIC OREN OWEN M.D. Performed By: #### A ИРИНА CUU #### [address] Troponin I High Sensitivity 128718.2 pg/mL Off scale high 0.0-20.0 [facility] Comment on above: Result Comment: Crit ical Result I_TnIHS_d:[id number] Called to and read back by: BROOKE CANDELARIA at: 01/16/2024 16:28:58 by:[id number] PERFORMED BY: [place] [id number] PATHOLOGIST RIVETER PNEUMATIC OREN OWEN M.D. Performed By: #### A ИРИНА, CUU #### [address] Troponin I High Sensitivity 63479.4 pg/mL Off scale high 0.0-20.0 [facility] Comment on above: Result Comment: Crit ical Result I_TnIHS_d:07164.4 Called to and read back by: BROOKE CANDELARIA at: 01/16/2024 14:15:37 by:[email or web address] PERFORMED BY: [place] [id number] PATHOLOGIST RIVETER PNEUMATIC OREN OWEN M.D. Performed By: #### A NAVUAJONATHAN, CUU #### [address] No Panel InformationOrdered By: Willy Lambert on 01-14-2024 Miscellaneous Pathology Test See comment [facility] Comment on above: See report. Scanned copy available in EMR. Pathology Request for Lab Co rpon 01-14-2024 Pathology Request for Lab Ashley Normal [facility] Comment on above: Order Comment: PATHO LOGY GI SPECIMEN Result Comment: See report. Scanned copy available in EMR. PERFORMED BY: [place] [id number] PATHOLOGIST RIVETER PNEUMATIC OREN OWEN M.D. Performed By: #### P ATH TO [facility] #### [address] Cholesterol [Mass/volume] in Serum or PlasmaOrdered By: Teo Al on 12-26-2023 Cholesterol [Mass/Vol] 91 mg/dL Low 140-200 [facility] Comment on above: Chol less than 200 m g/dl low riskChol 201-239 mg/dl borderline riskChol 240 mg/dl and greater high risk Result Comment: Chol less than 200 mg/dl low risk Chol 201-239 mg/dl borderline risk Chol 240 mg/dl and greater high risk Performed By: #### A ИРИНА, CUU #### [facility] [address] [place] [address] [place] Cholesterol in LDL Calc [Mas s/Vol]Ordered By: Teo Al on 12-26-2023 Cholesterol in LDL [Mass/Vol] 37 mg/dL 0-100 [facility] Comment on above: LDL ATP III CLASSIFI CATIONLDL less than 100 mg/dL OptimalLDL 100-129 mg/dL Near or above optimalLDL 130-159 mg/dL Borderline highLDL 160-189 mg/dL HighLDL greater than 189 mg/dL Very high Cholesterol in VLDL Calc [Ma ss/Vol]Ordered By: Teo Al on 12-26-2023 Cholesterol in VLDL [Mass/Vol] 18 mg/dL [facility] Lipid Panelon 12-26-2023 LDL Cholesterol,Calculated 37 mg/dL Normal 0-100 [facility] Comment on above: Result Comment: LDL ATP III CLASSIFICATION LDL less than 100 mg/dL Optimal LDL 100-129 mg/dL Near or above optimal LDL 130-159 mg/dL Borderline high LDL 160-189 mg/dL High LDL greater than 189 mg/dL Very high Performed By: #### A ИРИНА, CUU #### [facility] [address] [place] [address] [place] Triglyceride w/Reflex 94 mg/dL Normal 0-149 [facility] Comment on above: Result Comment: TRIG ATP III CLASSIFICATION TRIG less than 150 mg/dL Normal TRIG 150-199 mg/dL Borderline high TRIG 200-500 mg/dL High TRIG greater than 500 mg/dL Very high Standard traceable to the Center for Disease Conrtrol and Prevention (CDC) test method. Performed By: #### A NAVUAJONATHAN, CUU #### [facility] [address] [place] [id number] [facility] VLDL CHOLESTEROL 18 mg/dL Normal [facility] Comment on above: Performed By: #### A ИРИНА, CUU #### [facility] [address] Serum or plasma high density lipoprotein (HDL) cholesterol measurementOrdered By: Teo Al on 12-26-2023 Cholesterol in HDL [Mass/Vol] 35 mg/dL Normal 23-92 [facility] Comment on above: HDL CHOL ATP-III CLA SSIFICATION Cardiovascular RiskHDL > or equal to 60 mg/dL LOWHDL < 40 mg/dL HIGH Result Comment: HDL CHOL ATP-III CLASSIFICATION Cardiovascular Risk HDL > or equal to 60 mg/dL LOW HDL < 40 mg/dL HIGH Performed By: #### A ИРИНА, CUU #### [address] Serum or plasma total choles terol/high density lipoprotein (HDL) cholesterol mass ratOrdered By: Teo Al on 12-26-2023 Cholesterol.total/Sonya sterol in HDL [Mass ratio] 2.6 {ratio} Normal <5.0 [facility] Comment on above: Result Comment: PERF ORMED BY: [place] [address] PATHOLOGIST RIVETER PNEUMATIC OREN OWEN M.D. Performed By: #### A ИРИНА, CUU #### [address] Triglyceride [Mass/volume] i n Serum or PlasmaOrdered By: Teo Al on 12-26-2023 Triglyceride [Mass/Vol] 94 mg/dL 0-149 [facility] [place] Comment on above: TRIG ATP III CLASSIF ICATIONTRIG less than 150 mg/dL NormalTRIG 150-199 mg/dL Borderline highTRIG 200-500 mg/dL High TRIG greater than 500 mg/dL Very highStandard traceable to the Center for Disease Conrtrol and Prevention (CDC) test method. Erythrocyte distribution wid th Auto (RBC) [Ratio]on 10-16-2023 Erythrocyte distribution width (RBC) [Ratio] 15.4 % High 11.0-15.0 [facility] Hematocrit Auto (Bld) [Volum e fraction]on 10-16-2023 Hematocrit (Bld) [Volume fraction] 41.3 % Low 42.0-54.0 [facility] Hemoglobin [Mass/volume] in Bloodon 10-16-2023 Hemoglobin (Bld) [Mass/Vol] 13.3 g/dL Low 14.0-18.0 [facility] Laboratory - Chemistry and C hemistry - challengeon 10-16-2023 Magnesium [Mass/Vol] 2.1 mg/dL 1.8-2.4 [facility] Urate [Mass/Vol] 5.9 mg/dL 3.5-7.2 [facility] Leukocytes [#/volume] correc phil for nucleated erythrocytes in Blood by Automated counon 10-16-2023 WBC corrected for nucl RBC Auto (Bld) [#/Vol] 9.3 10 3/uL 4.0-11.0 [facility] MCH Auto (RBC) [Entitic mass ]on 10-16-2023 MCH (RBC) [Entitic mass] 27.8 pg 25.9-34.0 [facility] MCHC Auto (RBC) [Mass/Vol]on 10-16-2023 MCHC (RBC) [Mass/Vol] 32.2 g/dL 29.9-35.2 [facility] MCV Auto (RBC) [Entitic vol] on 10-16-2023 MCV (RBC) [Entitic vol] 86.2 fL 80.0-94.0 [facility] [place] No Panel Informationon 10-15 Phosphorus Level 2.7 mg/dL 2.6-4.7 [facility] Platelet mean volume Auto (B ld) [Entitic vol]on 10-16-2023 Platelet mean volume (Bld) [Entitic vol] 10.1 fL 9.5-13.5 [facility] Platelets Auto (Bld) [#/Vol] on 10-16-2023 Platelets (Bld) [#/Vol] 197 10 3/uL 150-450 [facility] RBC Auto (Bld) [#/Vol]on RBC (Bld) [#/Vol] 4.79 10 6/uL 4.70-6.10 [facility] Laboratory - Chemistry and C hemistry - challengeon 09-30-2023 Bilirubin Ql (U) Negative [facility] Glucose (U) [Mass/Vol] Negative Fi [facility] Ketones Ql (U) Negative [facility] pH (U) 7.0 [pH] [facility] Specific gravity (U) [Rel density] 1.010 [facility] Urobilinogen (U) [Mass/Vol] 0.2 mg/dL [facility] Laboratory - Specimen inform ationon 09-30-2023 Color (U) LtYellow [facility] Laboratory - Urinalysison Leukocyte esterase Test strip Ql (U) Large [facility] Nitrite Ql (U) Positive [facility] Protein Ql (U) 30 [facility] Creatinine (Bld) [Mass/Vol]O rdered By: Margarito Valentine on 08-18-2023 Creatinine [Mass/Vol] 2.4 mg/dL 0.6-1.3 [facility] Comment on above: ER/ESD physician is notified/shown all ISTAT results.Critical values may be confirmed by laboratory testing ifdeemed necessary by ER attending doctor. No Panel InformationOrdered By: Margarito Valentine on 08-18-2023 Bedside Estimated GFR (eGFR) 26.776 [facility] Alanine aminotransferase [En zymatic activity/volume] in Serum or PlasmaOrdered By: Preston Griffin on 04-08-2023 ALT [Catalytic activity/Vol] 17 U/L 7-52 [facility] Albumin [Mass/volume] in Ser um or Plasma by Bromocresol green (BCG) dye binding methoOrdered By: Preston Griffin on 04-08-2023 Albumin BCG dye [Mass/Vol] 4.2 g/dL 3.5-5.7 [facility] Alkaline phosphatase [Enzyma tic activity/volume] in Serum or PlasmaOrdered By: Preston Griffin on 04-08-2023 ALP [Catalytic activity/Vol] 72 U/L 34-104 [facility] Aspartate aminotransferase [ Enzymatic activity/volume] in Serum or PlasmaOrdered By: Preston Griffin on 04-08-2023 AST [Catalytic activity/Vol] 16 U/L 13-39 [facility] Automated erythrocytes count in urine sediment (number/area)Ordered By: Preston Griffin on 04-08-2023 RBC Auto (Urine sed) [#/Area] 3-4 [HPF] 0-4 [facility] Automated leukocytes count i n urine sediment (number/area)Ordered By: Preston Griffin on 04-08-2023 WBC Auto (Urine sed) [#/Area] 50-100 [HPF] 0-4 [facility] Bilirubin Test strip Ql (U)O rdered By: Preston Griffin on 04-08-2023 Bilirubin Ql (U) Negative Negative [facility] Bilirubin.total [Mass/volume ] in Serum or PlasmaOrdered By: Preston Griffin on 04-08-2023 Bilirubin [Mass/Vol] 0.5 mg/dL 0.3-1.0 [facility] Calcium [Mass/volume] in Ser um or PlasmaOrdered By: Preston Griffin on 04-08-2023 Calcium [Mass/Vol] 9.3 mg/dL 8.6-10.3 [facility] Carbon dioxide, total [Moles /volume] in Serum or PlasmaOrdered By: Preston Griffin on 04-08-2023 CO2 [Moles/Vol] 31.6 mmol/L 21.0-31.0 [facility] Chloride [Moles/volume] in S marium or PlasmaOrdered By: Preston Griffin on 04-08-2023 Chloride [Moles/Vol] 107 mmol/L 98-107 [facility] Cholesterol [Mass/volume] in Serum or PlasmaOrdered By: Teo Al on 04-08-2023 Cholesterol [Mass/Vol] 107 mg/dL 140-200 [facility] Comment on above: Chol less than 200 m g/dl low riskChol 201-239 mg/dl borderline riskChol 240 mg/dl and greater high risk Cholesterol in LDL Calc [Mas s/Vol]Ordered By: Teo Al on 04-08-2023 Cholesterol in LDL [Mass/Vol] 47 mg/dL 0-100 [facility] Comment on above: LDL ATP III CLASSIFI CATIONLDL less than 100 mg/dL OptimalLDL 100-129 mg/dL Near or above optimalLDL 130-159 mg/dL Borderline highLDL 160-189 mg/dL HighLDL greater than 189 mg/dL Very high Cholesterol in VLDL Calc [Ma ss/Vol]Ordered By: Teo Al on 04-08-2023 Cholesterol in VLDL [Mass/Vol] 26 mg/dL [facility] Color Auto (U)Ordered By: Jonh Griffin on 04-08-2023 Color (U) Yellow Yellow [facility] Creatinine [Mass/volume] in Serum or PlasmaOrdered By: Preston Griffin on 04-08-2023 Creatinine [Mass/Vol] 1.41 mg/dL 0.70-1.30 [facility] Creatinine [Mass/volume] in UrineOrdered By: Preston Griffin on 04-08-2023 Creatinine (U) [Mass/Vol] 90.0 mg/dL 14.0-26.0 [facility] Erythrocyte distribution wid th Auto (RBC) [Ratio]Ordered By: Preston Griffin on 04-08-2023 Erythrocyte distribution width (RBC) [Ratio] 15.7 % 12.0-14.8 [facility] Ferritin [Mass/volume] in Se rum or PlasmaOrdered By: Preston Griffin on 04-08-2023 Ferritin [Mass/Vol] 34.1 ng/mL 23.9-336.2 [facility] Folate [Mass/volume] in Seru m or PlasmaOrdered By: Preston Griffin on 04-08-2023 Folate [Mass/Vol] 34.0 ng/mL >5.9 [facility] Comment on above: Folate reference ran ge: >5.9 ng/mlThe WHO technical consultation on folate and vitamin [id number] has determined that folate concentrations lessthan 4 ng/ml are considered deficient. Globulin Calc (S) [Mass/Vol] Ordered By: Preston Griffin on 04-08-2023 Globulin (S) [Mass/Vol] 2.8 g/dL [facility] Glucose [Mass/volume] in Ser um or PlasmaOrdered By: Preston Griffin on 04-08-2023 Glucose [Mass/Vol] 107 mg/dL 70-100 [facility] Comment on above: ADA recommended refe rence rangeRandom Glucose Reference Range is dependent on time and content of last meal. Glucose of more than 200 mg/dL in a nonstressed, ambulatory subject supports the diagnosis of Diabetes Mellitus. Hematocrit Auto (Bld) [Volum e fraction]Ordered By: Preston Griffin on 04-08-2023 Hematocrit (Bld) [Volume fraction] 43.8 % 38.8-50.0 [facility] Hemoglobin [Mass/volume] in BloodOrdered By: Preston Griffin on 04-08-2023 Hemoglobin (Bld) [Mass/Vol] 14.3 g/dL 13.0-17.0 [facility] Iron [Mass/volume] in Serum or PlasmaOrdered By: Preston Griffin on 04-08-2023 Iron [Mass/Vol] 53 ug/dL 50-212 [facility] Iron binding capacity [Mass/ volume] in Serum or PlasmaOrdered By: Preston Griffin on 04-08-2023 Iron binding capacity [Mass/Vol] 370 ug/dL 255-450 [facility] Iron saturation [Mass Fracti on] in Serum or PlasmaOrdered By: Preston Griffin on 04-08-2023 Iron saturation [Mass fraction] 14.3 % 20-50 [facility] Ketones Auto test strip (U) [Mass/Vol]Ordered By: Preston Griffin on 04-08-2023 Ketones (U) [Mass/Vol] Negative Negative [facility] Laboratory - UrinalysisOrder ed By: Preston Griffin on 04-08-2023 Hyaline casts LM Ql (Urine sed) 9-19 [LPF] 0-8 [facility] Leukocytes [#/volume] correc phil for nucleated erythrocytes in Blood by Automated counOrdered By: Preston Griffin on 04-08-2023 WBC corrected for nucl RBC Auto (Bld) [#/Vol] 8.4 10*3/uL 4.1-10.5 [facility] MCH Auto (RBC) [Entitic mass ]Ordered By: Preston Griffin on 04-08-2023 MCH (RBC) [Entitic mass] 27.3 pg 27.5-35.2 [facility] MCHC Auto (RBC) [Mass/Vol]Or dered By: Preston Griffin on 04-08-2023 MCHC (RBC) [Mass/Vol] 32.6 g/dL 32.5-35.6 [facility] MCV Auto (RBC) [Entitic vol] Ordered By: Preston Griffin on 04-08-2023 MCV (RBC) [Entitic vol] 83.8 fL 83.5-101 [facility] Magnesium [Mass/volume] in S marium or PlasmaOrdered By: Preston Griffin on 04-08-2023 Magnesium [Mass/Vol] 2.2 mg/dL 1.9-2.7 [facility] Nitrite Test strip Ql (U)Ord ered By: Preston Griffin on 04-08-2023 Nitrite Ql (U) Positive Negative [facility] No Panel InformationOrdered By: Preston Griffin on 04-08-2023 Estimated GFR (CKD-EPI) 50.692 mL/Min [facility] Creatinine Clearance (Chem N/A [facility] Parathyrin.intact [Mass/volu me] in Serum or PlasmaOrdered By: Preston Griffin on 04-08-2023 Parathyrin.intact [Mass/Vol] 76.6 pg/mL 12-88 [facility] Phosphate [Mass/volume] in S marium or PlasmaOrdered By: Preston Griffin on 04-08-2023 Phosphate [Mass/Vol] 2.8 mg/dL 2.5-4.5 [facility] Platelet mean volume Auto (B ld) [Entitic vol]Ordered By: Preston Griffin on 04-08-2023 Platelet mean volume (Bld) [Entitic vol] 8.6 fL 6.6-10.1 [facility] Platelets Auto (Bld) [#/Vol] Ordered By: Preston Griffin on 04-08-2023 Platelets (Bld) [#/Vol] 201 10*3/uL 150-450 [facility] Potassium [Moles/volume] in Serum or PlasmaOrdered By: Preston Griffin on 04-08-2023 Potassium [Moles/Vol] 4.5 mmol/L 3.5-5.1 [facility] Protein Auto test strip (U) [Mass/Vol]Ordered By: Preston Griffin on 04-08-2023 Protein (U) [Mass/Vol] Trace mg/dL Negative [facility] Protein [Mass/volume] in Ser um or PlasmaOrdered By: Preston Griffin on 04-08-2023 Protein [Mass/Vol] 7.0 g/dL 6.4-8.9 [facility] Protein [Mass/volume] in Uri neOrdered By: Preston Griffin on 04-08-2023 Protein (U) [Mass/Vol] 30 mg/dL 0-9 [facility] RBC Auto (Bld) [#/Vol]Ordere d By: Preston Griffin on 04-08-2023 RBC (Bld) [#/Vol] 5.22 10*6/uL 3.90-5.60 [facility] Serum or plasma albumin/glob ulin mass ratioOrdered By: Preston Griffin on 04-08-2023 Albumin/Globulin [Mass ratio] 1.5 {ratio} [facility] Serum or plasma anion gap de terminationOrdered By: Preston Griffin on 04-08-2023 Anion gap [Moles/Vol] 8.9 mmol/L 6.0-15.0 [facility] Serum or plasma high density lipoprotein (HDL) cholesterol measurementOrdered By: Teo Al on 04-08-2023 Cholesterol in HDL [Mass/Vol] 34 mg/dL 23-92 [facility] Comment on above: HDL CHOL ATP-III CLA SSIFICATION Cardiovascular RiskHDL > or equal to 60 mg/dL LOWHDL < 40 mg/dL HIGH Serum or plasma total choles terol/high density lipoprotein (HDL) cholesterol mass ratOrdered By: Teo Al on 04-08-2023 Cholesterol.total/Sonya sterol in HDL [Mass ratio] 3.1 {ratio} <5.0 [facility] Sodium [Moles/volume] in Ser um or PlasmaOrdered By: Preston Griffin on 04-08-2023 Sodium [Moles/Vol] 143 mmol/L 136-145 [facility] Specific gravity Auto test s trip (U) [Rel density]Ordered By: Preston Griffin on 04-08-2023 Specific gravity (U) [Rel density] 1.017 1.001-1.03 0 [facility] Squamous epithelial cells de tection in urine sediment by light microscopyOrdered By: Preston Griffin on 04-08-2023 Epithelial cells.squamous LM Ql (Urine sed) 0-1 [HPF] 0-2 [facility] Transferrin [Mass/volume] in Serum or PlasmaOrdered By: Preston Griffin on 04-08-2023 Transferrin [Mass/Vol] 264 mg/dL 203-362 [facility] Triglyceride [Mass/volume] i n Serum or PlasmaOrdered By: Teo Al on 04-08-2023 Triglyceride [Mass/Vol] 131 mg/dL 0-149 [facility] Comment on above: TRIG ATP III CLASSIF ICATIONTRIG less than 150 mg/dL NormalTRIG 150-199 mg/dL Borderline highTRIG 200-500 mg/dL High TRIG greater than 500 mg/dL Very highStandard traceable to the Center for Disease Conrtrol and Prevention (CDC) test method. Urate [Mass/volume] in Serum or PlasmaOrdered By: Preston Griffin on 04-08-2023 Urate [Mass/Vol] 6.0 mg/dL 4.4-7.6 [facility] Urea nitrogen [Mass/volume] in Serum or PlasmaOrdered By: Preston Griffin on 04-08-2023 Urea nitrogen [Mass/Vol] 27 mg/dL 7-25 [facility] Urine bacteria detection by automated methodOrdered By: Preston Griffin on 04-08-2023 Bacteria Auto Ql (U) 4+ None Seen [facility] Urine clarity by refractomet ry automatedOrdered By: Preston Griffin on 04-08-2023 Clarity Refractometry automated (U) Cloudy Clear [facility] Urine glucose measurement by automated test strip (mass/volume)Ordered By: Preston Griffin on 04-08-2023 Glucose Auto test strip (U) [Mass/Vol] Normal mg/dL Normal [facility] Urine hemoglobin detection b y automated test stripOrdered By: Preston Griffin on 04-08-2023 Hemoglobin Auto test strip Ql (U) 1+ Negative [facility] Urine leukocyte esterase det ection by automated test stripOrdered By: Preston Griffin on 04-08-2023 Leukocyte esterase Auto test strip Ql (U) 4+ Negative [facility] Urine protein/creatinine rat ioOrdered By: Preston Griffin on 04-08-2023 Protein/Creatinine (U) [Ratio] 333 mg/g{Cre} 0-200 [facility] Urobilinogen Auto test strip (U) [Mass/Vol]Ordered By: Preston Griffin on 04-08-2023 Urobilinogen (U) [Mass/Vol] Normal mg/dL Normal [facility] Vitamin B12 ser/plasOrdered By: Preston Griffin on 04-08-2023 Cobalamin (Vitamin B12) [Mass/Vol] 301 pg/mL 180-914 [facility] Vitamin D+Metabolites [Mass/ volume] in Serum or PlasmaOrdered By: Preston Griffin on 04-08-2023 Vitamin D+Metabolites [Mass/Vol] 37.5 ng/mL 30-100 [facility] Comment on above: VITAMIN D STATUS 25( [place])VITAMIN D RANGE (ng/mL) Deficient <20 Insufficient 20 to <30Sufficient 30 to 100Reference: Sixto MF,Federico NC, Palomo LESLIE, et al. Evaluation,treatment, and prevention of vitamin D deficiency; an Endocrine Society clinical practice guideline. JCEM. 2010; 96(7):1911-30. pH Auto test strip (U)Ordere d By: Preston Griffin on 04-08-2023 pH (U) 7.0 [pH] 5.0-9.0 [facility] Office Visit (Cardiology)on 01-22-2023 Follow-up visit [...] Lipid Panel; Status:Active - Retrospective Authorization; Requested for:[id number]; Overweight with body mass index (BMI) of [...] we can help. You may also call [phone]-[phone] for free resources and assistance.; Status:Complete - [...] negative for complaint. Vitals Vital Signs Recorded: [id number] 09:57AM Heart Rate72, L Radial [id number], LUE, Sitting Dzzkftvxj99, LUE, Sitting Height6 ft 2 in Ilwhkp945 lb BMI Xvhzfvcikz43.35 kg/m2 BSA Calculat (more content not included)... Normal [facility] Tobacco Screening.on 023 Fall risk assessment a) No falls within the last year [facility] [employer] [address] DO Work Phone: Tobacco use status CPHS a) Yes [facility] [employer] [address] DO Work Phone: Tobacco Screening. Yes -[facility] [employer] DO Work Phone: CULTURE URINEon 09-18-2022 CULTURE URINE Isolate 1 Pseudomonas aeruginosa >100,000 cfu/mL of ORGANISM 1 Pseudomonas aeruginosa ANTIBIOTIC M.I.C RX STATUS Piperacillin/Tazobactam <=4 S F Ceftazidime <=1 S F Imipenem 2 S F Amikacin <=2 S F Gentamicin 2 S F Tobramycin <=1 S F Ciprofloxacin <=0.25 S F Levofloxacin <=0.12 S F Normal [facility] Comment on above: Performed By: #### U RTPCR #### [facility] [address] [place] [address] Dr. Karen Pierce CALCULI, URINARYon 3 2,8 Dihydroxyadenine Normal [facility] Comment on above: Performed By: #### U A #### [facility] [address] [place] [address] Dr. Karen Pierce Ammonium Acid Urate Normal [facility] Comment on above: Performed By: #### U A #### [facility] [address] [place] [address] Dr. Karen Pierce Bilirubin Ql (U) Normal [facility] Comment on above: Performed By: #### U A #### [facility] [address] [place] [address] Dr. Karen Pierce Ca Oxalate Dihydrate Normal [facility] Comment on above: Performed By: #### U A #### [facility] [address] [place] [address] Dr. Karen Pierce CaHPO4 ([place]) [facility] Comment on above: Performed By: #### U A #### [facility] [address] [address] [address] Karen Pierce Calcium Bilirubinate Normal [facility] Comment on above: Performed By: #### U A #### [facility] [address] [place] [address] [address] Karen Pierce Calcium Carbonate [facility] Comment on above: Performed By: #### U A #### [facility] [address] [address] [address] Karen Pierce Calcium Oxalate Monohydrate 100 % [facility] Comment on above: Performed By: #### U A #### [facility] [address] [address] [address] Karen Pierce Calcium Palmitate [facility] Comment on above: Performed By: #### U A #### [facility] [address] [address] [address] Karen Pierce Calcium Phosphate [facility] Comment on above: Performed By: #### U A #### [facility] [address] [address] [address] Karen Pierce Calcium Stearate [facility] Comment on above: Performed By: #### U A #### [facility] [address] [place] [address] Dr. Karen Pierce Carbonate Apatite [facility] Comment on above: Performed By: #### U A #### [facility] [address] [address] [address] Karen Pierce Cellular Material [facility] Comment on above: Performed By: #### U A #### [facility] [address] [address] [address] Karen Pierce Cholesterol [facility] Comment on above: Performed By: #### U A #### [facility] [address] [address] [address] Karen Pierce Color (U) Brown [facility] Comment on above: Performed By: #### U A #### [facility] [address] [address] [address] Karen Pierce Comment Normal [facility] Comment on above: Performed By: #### U A #### [facility] [address] [place] [address] Dr. Karen Pierce Comment: Comment Normal [facility] Comment on above: Result Comment: Hyacinth rhodes questions regarding Calculi Analysis contact [facility] at: [phone]. Performed By: #### U A #### [facility] [address] [address] [address] Karen Pierce Composition Comment [facility] Comment on above: Result Comment: Perc entage (Represents the % composition) Performed By: #### U A #### [facility] [address] [place] [address] Dr. Karen Pierce Cystine Normal [facility] Comment on above: Performed By: #### U A #### [facility] [address] [place] [address] Dr. Karne Pierce Disclaimer: Comment [facility] Comment on above: Result Comment: This test was developed and its performance characteristics determined by [facility]. It has not been cleared or approved by the Food and Drug Administration. Performed By: #### U A #### [facility] [address] [address] [address] Karen Pierce Dried Blood Normal [facility] Comment on above: Performed By: #### U A #### [facility] [address] [place] [address] Dr. Karen Pierce Drug or Metabolite Normal [facility] Comment on above: Performed By: #### U A #### [facility] [address] [address] [address] Karen Pierce Hydroxyapatite [facility] Comment on above: Performed By: #### U A #### [facility] [address] [place] [address] Dr. Karen Pierce Mg NH4 PO4 (Struvite) Normal [facility] Comment on above: Performed By: #### U A #### [facility] [address] [address] [address] Karen Pierce MgHPO4 ([facility]) [facility] Comment on above: Performed By: #### U A #### [facility] [address] [address] [address] Karen Pierce Other component(s) [facility] Comment on above: Performed By: #### U A #### [facility] [address] [address] [address] Karen Pierce PDF . Normal [facility] Comment on above: Performed By: #### U A #### [facility] [address] [address] [address] Karen Pierce Photo Comment [facility] Comment on above: Result Comment: Phot ograph will follow under a separate cover Performed By: #### U A #### [facility] [address] [place] [address] Dr. Karen Pierce Please note: Comment [facility] Comment on above: Result Comment: Calc shirley report will follow via computer, mail or commercial interior designer delivery. Performed By: #### U A #### [facility] [address] [place] [address] Dr. Karen Pierce Size 5x5 [facility] Comment on above: Result Comment: Mult iple pieces received. Dimensions of the largest piece reported. Performed By: #### U A #### [facility] [address] [place] [address] Dr. Karen Pierce Sodium Acid Urate [facility] Comment on above: Performed By: #### U A #### [facility] [address] [place] [address] Dr. Karen Pierce Source Comment [facility] Comment on above: Result Comment: Urin evelin Bladder Performed By: #### U A #### [facility] [address] [place] [address] Dr. Karen Pierce Triamterene [facility] Comment on above: Performed By: #### U A #### [facility] [address] [place] [address] Dr. Karen Pierce Uric Acid Normal [facility] Comment on above: Performed By: #### U A #### [facility] [address] [place] [address] Dr. Karen Pierce Uric Acid Dihydrate Normal [facility] Comment on above: Performed By: #### U A #### [facility] [address] [place] [address] Dr. Karen Pierce Weight 158 mg Normal [facility] Comment on above: Performed By: #### U A #### [facility] [address] [address] [address] Karen Pierce Xanthine [facility] Comment on above: Performed By: #### U A #### [facility] [address] [place] [address] Dr. Karen Pierce ER URINE PROFILEon 3 Bilirubin Ql (U) Negative Normal NEGATIVE [facility] Comment on above: Performed By: #### U MICRO, ERUR #### [facility] [address] [place] [address] Dr. Karen Pierce Clarity (U) CLEAR Normal CLEAR [facility] Comment on above: Performed By: #### U MICRO, ERUR #### [facility] [address] [place] [address] Dr. Karen Pierce Color (U) YELLOW Normal YELLOW [facility] Comment on above: Performed By: #### U MICRO, ERUR #### [facility] [address] [place] [address] Dr. Karen Pierce ERUAHD A micrscopic examina tion will be performed if indicated. Normal [facility] Comment on above: Performed By: #### U MICRO, ERUR #### [facility] [address] [address] [address] Karen Pierce Glucose Ql (U) Negative Normal NEGATIVE [facility] Comment on above: Performed By: #### U MICRO, ERUR #### [facility] [address] [place] [address] Dr. Karen Pierce Hemoglobin Ql (U) LARGE Abnormal NEGATIVE [facility] Comment on above: Performed By: #### U MICRO, ERUR #### [facility] [address] [place] [address] Dr. Karen Pierce Ketones Ql (U) Negative Normal NEGATIVE [facility] Comment on above: Performed By: #### U MICRO, ERUR #### [facility] [address] [place] [address] Dr. Karen Pierce LEUKOCYTES LARGE Abnormal NEGATIVE [facility] Comment on above: Performed By: #### U MICRO, ERUR #### [facility] [address] [place] [address] Dr. Karen Pierce Nitrite Ql (U) Positive Abnormal NEGATIVE [facility] Comment on above: Performed By: #### U MICRO, ERUR #### [facility] [address] [place] [address] Dr. Karen Pierce pH (U) 5.5 [pH] Normal 5-9 [facility] Comment on above: Performed By: #### U MICRO, ERUR #### [facility] [address] [place] [address] Dr. Karen Pierce Protein (U) [Mass/Vol] 100 mg/dL Abnormal NEGAT BUZZ/ TRACE [facility] Comment on above: Performed By: #### U MICRO, ERUR #### [facility] [address] [place] [address] Dr. Karen iPerce SPEC GRAVITY 1.020 Normal 1.005-<=1. 025 [facility] Comment on above: Performed By: #### U MICRO, ERUR #### [facility] [address] [place] [address] Dr. Karen Pierce UR MICRO IND INDICATED Normal [facility] Comment on above: Performed By: #### U MICRO, ERUR #### [facility] [address] [place] [address] Dr. Karen Pierce Urobilinogen Qn (U) 1.0 {Tonio'U}/dL Normal 0.2 - 1. 0 [facility] Comment on above: Performed By: #### U MICRO, ERUR #### [facility] [address] [place] [address] Dr. Karen Pierce URINE MICROSCOPIC ONLYon BACTERIA SMALL Abnormal NONE SEEN [facility] Comment on above: Performed By: #### U MICRO, ERUR #### [facility] [address] [place] [address] Dr. Karen Pierce Bacteria identified Cx Nom (U) INDICATED Normal [facility] Comment on above: Performed By: #### U MICRO, ERUR #### [facility] [address] [place] [address] Dr. Karen Pierce CAST NONE SEEN Normal NONE SEEN [facility] Comment on above: Performed By: #### U MICRO, ERUR #### [facility] [address] [place] [address] Dr. Karen Pierce Crystals LM Nom (Urine sed) NONE SEEN Normal NONE SEEN [facility] Comment on above: Performed By: #### U MICRO, ERUR #### [facility] [address] [place] [address] Dr. Karen Pierce Epithelial cells LM Ql (Urine sed) NONE SEEN Normal NONE SEEN /RARE [facility] Comment on above: Performed By: #### U MICRO, ERUR #### [facility] [address] [place] [address] Dr. Karen Pierce MUCOUS NONE SEEN Normal NONE SEEN [facility] Comment on above: Performed By: #### U MICRO, ERUR #### [facility] [address] [place] [address] Dr. Karen Pierce RBC (U) [#/Vol] /uL Abnormal 0-2 [facility] Comment on above: Performed By: #### U MICRO, ERUR #### [facility] [address] [place] [address] Dr. Karen Pierce WBC 50-75 Abnormal NONE SEEN [facility] Comment on above: Performed By: #### U MICRO, ERUR #### [facility] [address] [place] [address] Dr. Karen Pierce PTH INTACTon 09-05-2022 PTH, Intact 38 pg/mL Normal 15-65 [facility] Comment on above: Performed By: #### P THINT #### [facility] [address] [place] [address] Dr. Karen Pierce FERRITINon 09-04-2022 Ferritin [Mass/Vol] 49.0 ng/mL Normal 26.0-388.0 [facility] Comment on above: Performed By: #### U RTPCR #### [facility] [address] [place] [address] Dr. Karen Pierce IRON AND TIBCon 09-04-2022 % SATURATION 10.3 % Normal [facility] Comment on above: Performed By: #### U RTPCR #### [facility] [address] [place] [address] Dr. Karen Pierce Iron [Mass/Vol] 33.0 ug/dL Critically low 65.0-175.0 [facility] Comment on above: Performed By: #### U RTPCR #### [facility] [address] [place] [address] Dr. Karen Pierce TIBC DIRECT 319.0 ug/dL Normal 250.0-450. 0 [facility] Comment on above: Performed By: #### U RTPCR #### [facility] [address] [place] [address] Dr. Karen Pierce UA RANDOMon 09-04-2022 Bilirubin Ql (U) Negative Normal NEGATIVE [facility] Comment on above: Performed By: #### U A #### [facility] [address] [place] [address] Dr. Karen Pierce Clarity (U) CLEAR Normal CLEAR [facility] Comment on above: Performed By: #### U A #### [facility] [address] [place] [address] Dr. Karen Pierce Color (U) LT. YELLOW Normal YELLOW [facility] Comment on above: Performed By: #### U A #### [facility] [address] [place] [address] Dr. Karen Pierce Glucose Ql (U) Negative Normal NEGATIVE [facility] Comment on above: Performed By: #### U A #### [facility] [address] [place] [address] Dr. Karen Pierce Hemoglobin Ql (U) MODERATE Abnormal NEGATIVE [facility] Comment on above: Performed By: #### U A #### [facility] [address] [place] [address] Dr. Karen Pierce Ketones Ql (U) Negative Normal NEGATIVE [facility] Comment on above: Performed By: #### U A #### [facility] [address] [place] [address] Dr. Karen Pierce LEUKOCYTES LARGE Abnormal NEGATIVE [facility] Comment on above: Performed By: #### U A #### [facility] [address] [place] [address] Dr. Karen Pierce Nitrite Ql (U) Positive Abnormal NEGATIVE [facility] Comment on above: Performed By: #### U A #### [facility] [address] [place] [address] Dr. Karen Pierce pH (U) 6.5 [pH] Normal 5-9 [facility] Comment on above: Performed By: #### U A #### [facility] [address] [place] [address] Dr. Karen Pierce SPEC GRAVITY 1.015 Normal 1.005-<=1. 025 [facility] Comment on above: Performed By: #### U A #### [facility] [address] [place] [address] Dr. Karen Pierce UA PROTEIN 30 mg/dl Abnormal NEGATIVE/ TRACE [facility] Comment on above: Performed By: #### U A #### [facility] [address] [place] [address] Dr. Karen Pierce Urobilinogen Qn (U) 0.2 {Tonio'U}/dL Normal 0.2 - 1. 0 [facility] Comment on above: Performed By: #### U A #### [facility] [address] [place] [address] Dr. Karen Pierce URINE T PROTEIN CREAT RATIOo n 09-04-2022 Protein (U) [Mass/Vol] 65.2 mg/dL Critically high <=12.0 [facility] Comment on above: Performed By: #### U RTPCR #### [facility] [address] [place] [address] Dr. Karen Pierce UR PROT CREAT RAT 0.76 Normal [facility] Comment on above: Performed By: #### U RTPCR #### [facility] [address] [place] [address] Dr. Karen Pierce URINE CREAT 85.95 mg/dL Normal 20.00-300. 00 [facility] Comment on above: Performed By: #### U RTPCR #### [facility] [address] [place] [address] Dr. Karen Pierce VIT B12 AND FOLATEon 023 Cobalamin (Vitamin B12) [Mass/Vol] 279.0 pg/mL Normal 193.0-986. 0 [facility] Comment on above: Performed By: #### U RTPCR #### [facility] [address] [place] [address] Dr. Karen Pierce FOLATE 17.80 ng/mL Normal 8.60-58.90 [facility] Comment on above: Performed By: #### U RTPCR #### [facility] [address] [place] [address] Dr. Karen Pierce VITAMIN D 25 OHon 09-04-2022 VIT D 25-OH 29.9 ng/mL Normal [facility] Comment on above: Performed By: #### U RTPCR #### [facility] [address] [place] [address] Dr. Karen Pierce VIT D RANGES SEE BELOW Normal [facility] Comment on above: Result Comment: <20 ng/mL Vit D deficient 20 - <30 ng/mL Vit D insufficient 30 - 100 ng/mL Vit D sufficient >100 ng/mL Potential Toxicity Performed By: #### U RTPCR #### [facility] [address] [place] [address] Dr. Karen Pierce CBC AUTO DIFFon 09-02-2022 BASO # 0.1 103/ul Normal 0.0-0.1 [facility] Comment on above: Performed By: #### C BC #### [facility] [address] [place] [address] Dr. Karen Pierce Basophils/100 WBC (Bld) 0.7 % Normal 0.2-2.0 [facility] Comment on above: Performed By: #### C BC #### [facility] [address] [place] [address] Dr. Karen Pierce EO # 0.2 103/ul Normal 0.0-0.7 [facility] Comment on above: Performed By: #### C BC #### [facility] [address] [place] [address] Dr. Karen Pierce Eosinophils/100 WBC (Bld) 2.6 % Normal 0.9-7.0 [facility] Comment on above: Performed By: #### C BC #### [facility] [address] [place] [address] Dr. Karen Pierce Erythrocyte distribution width (RBC) [Ratio] 13.8 % Normal 11.0-15.0 [facility] Comment on above: Performed By: #### C BC #### [facility] [address] [place] [address] Dr. Karen Pierce Hematocrit (Bld) [Volume fraction] 38.9 % Critically low 42.0-54.0 [facility] Comment on above: Performed By: #### C BC #### [facility] [address] [place] [address] Dr. Karen Pierce Hemoglobin (Bld) [Mass/Vol] 12.3 g/dL Critically low 14.0-18.0 [facility] Comment on above: Performed By: #### C BC #### [facility] [address] [place] [address] Dr. Karen Pierce IG # 0.01 10e3/ul Normal 0.00-0.03 [facility] Comment on above: Performed By: #### C BC #### [facility] [address] [place] [address] Dr. Karen Pierce IG % 0.1 % Normal 0.0-0.5 [facility] Comment on above: Performed By: #### C BC #### [facility] [address] [place] [address] Dr. Karen Pierce LYMPH # 1.9 103/ul Normal 1.2-3.8 [facility] Comment on above: Performed By: #### C BC #### [facility] [address] [place] [address] Dr. Karen Pierce Lymphocytes/100 WBC (Bld) 27.0 % Normal 20.5-60.0 [facility] Comment on above: Performed By: #### C BC #### [facility] [address] [place] [address] Dr. Karen Pierce MANUAL DIFF REQ NO Normal [facility] Comment on above: Performed By: #### C BC #### [facility] [address] [place] [address] Dr. Karen Pierce MCH (RBC) [Entitic mass] 27.8 pg Normal 25.9-34.0 [facility] Comment on above: Performed By: #### C BC #### [facility] [address] [place] [address] Dr. Karen Pierce MCHC (RBC) [Mass/Vol] 31.6 g/dL Normal 29.9-35.2 [facility] Comment on above: Performed By: #### C BC #### [facility] [address] [place] [address] Dr. Karen Pierce MCV (RBC) [Entitic vol] 87.8 fL Normal 80.0-94.0 [facility] Comment on above: Performed By: #### C BC #### [facility] [address] [place] [address] Dr. Karen Pierce MONO # 0.6 103/ul Normal 0.3-0.8 [facility] Comment on above: Performed By: #### C BC #### [facility] [address] [place] [address] Dr. Karen Pierce Monocytes/100 WBC (Bld) 8.8 % Normal 1.7-12.0 [facility] Comment on above: Performed By: #### C BC #### [facility] [address] [place] [address] Dr. Karen Pierce NEUT # 4.4 103/ul Normal 1.4-6.5 [facility] Comment on above: Performed By: #### C BC #### [facility] [address] [address] [address] Karen Pierce Neutrophils/100 WBC (Bld) 60.8 % Normal 43.0-75.0 [facility] Comment on above: Performed By: #### C BC #### [facility] [address] [address] [address] Karen Pierce Platelet mean volume (Bld) [Entitic vol] 9.9 fL Normal 9.5-13.5 [facility] Comment on above: Performed By: #### C BC #### [facility] [address] [place] [address] Dr. Karen Pierce PLT 181 103/ul Normal 150-450 [facility] Comment on above: Performed By: #### C BC #### [facility] [address] [place] [address] Dr. Karen Pierce RBC 4.43 106/ul Critically low 4.70-6.10 [facility] Comment on above: Performed By: #### C BC #### [facility] [address] [place] [address] Dr. Karen Pierce WBC 7.2 103/ul Normal 4.0-11.0 [facility] Comment on above: Performed By: #### C BC #### [facility] [address] [place] [address] Dr. Karen Pierce MAGNESIUMon 09-02-2022 Magnesium [Mass/Vol] 2.2 mg/dL Normal 1.8-2.4 [facility] Comment on above: Performed By: #### U A #### [facility] [address] [place] [address] Dr. Karen Pierce PHOSPHORUSon 09-02-2022 Phosphate [Mass/Vol] 2.9 mg/dL Normal 2.6-4.7 [facility] Comment on above: Performed By: #### U A #### [facility] [address] [place] [address] Dr. Karen Pierce PROF 14(COMP METB)on 04-10-2 023 Albumin [Mass/Vol] 3.5 g/dL Normal 3.4-5.0 [facility] Comment on above: Performed By: #### P THINT #### [facility] [address] [place] [address] Dr. Karen Pierce Albumin/Globulin [Mass ratio] 1.0 {ratio} Normal [facility] Comment on above: Performed By: #### P THINT #### [facility] [address] [place] [address] Dr. Karen Pierce ALP [Catalytic activity/Vol] 86 U/L Normal 46-116 [facility] Comment on above: Performed By: #### P THINT #### [facility] [address] [place] [address] Dr. Karen Pierce ALT [Catalytic activity/Vol] 17 U/L Normal 16-63 [facility] Comment on above: Performed By: #### P THINT #### [facility] [address] [place] [address] Dr. Karen Pierce Anion gap [Moles/Vol] 13.0 mmol/L Normal [facility] Comment on above: Performed By: #### P THINT #### [facility] [address] [place] [address] Dr. Karen Pierce AST [Catalytic activity/Vol] 14 U/L Critically low 15-37 [facility] Comment on above: Performed By: #### P THINT #### [facility] [address] [place] [address] Dr. Karen Pierce Bilirubin [Mass/Vol] 0.3 mg/dL Normal 0.2-1.0 [facility] Comment on above: Performed By: #### P THINT #### [facility] [address] [place] [address] Dr. Karen Pierce CO2 [Moles/Vol] 27.6 mmol/L Normal 21.0-32.0 [facility] Comment on above: Performed By: #### P THINT #### [facility] [address] [place] [address] Dr. Karen Pierce Creatinine [Mass/Vol] 1.48 mg/dL Critically high 0.70-1.30 [facility] Comment on above: Performed By: #### P THINT #### [facility] [address] [address] [address] Karen Pierce EGFR-AF CYMRO 56 mL/min/1.73m2 Critically low >=60 [facility] Comment on above: Performed By: #### P THINT #### [facility] [address] [id number] Dr. Karen Pierce EGFR-NON AF CYMRO 46 mL/min/1.73m2 Critically low >=60 [facility] Comment on above: Performed By: #### P THINT #### [facility] [address] [address] [address] Karen Pierce Globulin (S) [Mass/Vol] 3.6 g/dL Normal T [facility] Comment on above: Performed By: #### P THINT #### [facility] [address] [place] [address] Dr. Karen Pierce Glucose [Mass/Vol] 105 mg/dL Normal 74-106 [facility] Comment on above: Performed By: #### P THINT #### [facility] [address] [address] [address] Karen Pierce Protein [Mass/Vol] 7.1 g/dL Normal 6.4-8.2 [facility] Comment on above: Performed By: #### P THINT #### [facility] [address] [place] [address] Dr. Karen Pierce Sodium [Moles/Vol] 142 mmol/L Normal 136-145 [facility] Comment on above: Performed By: #### P THINT #### [facility] [address] [address] [address] Karen Pierce Urea nitrogen/Creatinine [Mass ratio] 16.2 mg/mg Normal [facility] Comment on above: Performed By: #### P THINT #### [facility] [address] [place] [address] Dr. Karen Pierce PROF CHEM 8 (BAS METB)on Anion gap [Moles/Vol] 11.1 mmol/L Normal Th e [facility] Comment on above: Performed By: #### U A #### [facility] [address] [place] [address] Dr. Karen Pierce Calcium [Mass/Vol] 8.7 mg/dL Normal 8.5-10.1 [facility] Comment on above: Performed By: #### U A #### [facility] [address] [place] [address] Dr. Karen Pierce Performed By: #### P THINT #### [facility] [address] [place] [address] Dr. Karen Pierce Chloride [Moles/Vol] 106 mmol/L Normal 98-107 [facility] Comment on above: Performed By: #### U A #### [facility] [address] [place] [address] Dr. Karen Pierce Performed By: #### P THINT #### [facility] [address] [place] [address] Dr. Karen Pierce CO2 [Moles/Vol] 28.5 mmol/L Normal 21.0-32.0 [facility] Comment on above: Performed By: #### U A #### [facility] [address] [place] [address] Dr. Karen Pierce Creatinine [Mass/Vol] 1.44 mg/dL Critically high 0.70-1.30 [facility] Comment on above: Performed By: #### U A #### [facility] [address] [place] [address] Dr. Karen Pierce EGFR-AF CYMRO 58 mL/min/1.73m2 Critically low >=60 [facility] Comment on above: Performed By: #### U A #### [facility] [address] [place] [address] Dr. Karen Pierce EGFR-NON AF CYMRO 47 mL/min/1.73m2 Critically low >=60 [facility] Comment on above: Performed By: #### U A #### [facility] [address] [place] [address] Dr. Karen Pierce Glucose [Mass/Vol] 104 mg/dL Normal 74-106 [facility] Comment on above: Performed By: #### U A #### [facility] [address] [place] [address] Dr. Karen Pierce Potassium [Moles/Vol] 4.6 mmol/L Normal 3.5-5.1 [facility] Comment on above: Performed By: #### U A #### [facility] [address] [place] [address] Dr. Karen Pierce Performed By: #### P THINT #### [facility] [address] [place] [address] Dr. Karen Pierce Sodium [Moles/Vol] 141 mmol/L Normal 136-145 [facility] Comment on above: Performed By: #### U A #### [facility] [address] [place] [address] Dr. Karen Pierce Urea nitrogen [Mass/Vol] 24.0 mg/dL Critically high 7.0-18.0 [facility] Comment on above: Performed By: #### U A #### [facility] [address] [place] [address] Dr. Karen Pierce Performed By: #### P THINT #### [facility] [address] [place] [address] Dr. Karen Pierce Urea nitrogen/Creatinine [Mass ratio] 16.7 mg/mg Normal [facility] Comment on above: Performed By: #### U A #### [facility] [address] [place] [address] Dr. Karen Pierce PROTIMEon 09-02-2022 INR Coag (PPP) [Relative time] 1.01 {INR} Normal [facility] Comment on above: Performed By: #### P TT, PT #### [facility] [address] [place] [address] Dr. Karen Pierce INR GUIDELINES SEE BELOW Normal [facility] Comment on above: Result Comment: EMY RED INR: 2.0 - 3.0 CONDITIONS NOT LISTED BELOW 2.5 - 3.5 FOR PROSTHETIC HEART VALVE REPLACEMENT 2.5 - 3.5 RECURRENT THROMBOSIS Performed By: #### P TT, PT #### [facility] [address] [address] [address] Karen Pierce PT Coag (PPP) [Time] 10.7 s Normal 9.0-11.6 [facility] Comment on above: Performed By: #### P TT, PT #### [facility] [address] [address] [address] Karen Pierce PTTon 09-02-2022 aPTT Coag (Bld) [Time] 28.2 s Normal 22.3-36.2 [facility] Comment on above: Performed By: #### P TT, PT #### [facility] [address] [address] [address] Karen Pierce URIC ACID SERUMon 09-02-2022 Urate [Mass/Vol] 4.8 mg/dL Normal 3.5-7.2 [facility] Comment on above: Performed By: #### P THINT #### [facility] [address] [address] [address] Karen Pierce Creatinine (Bld) [Mass/Vol]O rdered By: Margarito Valentine on 08-16-2022 Creatinine [Mass/Vol] 1.5 mg/dL 0.6-1.3 [facility] Comment on above: ER/ESD physician is notified/shown all ISTAT results.Critical values may be confirmed by laboratory testing ifdeemed necessary by ER attending doctor. Creatinine (Bld) [Mass/Vol]O rdered By: Heather Omalley on 07-24-2022 Creatinine [Mass/Vol] 1.6 mg/dL 0.6-1.3 [facility] Comment on above: ER/ESD physician is notified/shown all ISTAT results.Critical values may be confirmed by laboratory testing ifdeemed necessary by ER attending doctor. No Panel InformationOrdered By: Heather Omalley on 07-24-2022 POC Estimated GFR 51 [facility] Comment on above: GFR estimated refere nce range: According to KDOQI guidelines, <60 ml/min/1.73m2 is sufficient to diagnose a patient with chronic kidney disease. POC Estimated GFR Non- Amer 42 [facility] Blood activated clotting lacho e by coagulation assayOrdered By: Margarito Valentine on 07-02-2022 ACT Coag (Bld) 215 s 90-139 [facility] Comment on above: Reference Range: 90- 139 (Non-heparinized) Basophils Auto (Bld) [#/Vol] Ordered By: Margarito Valentine on 06-21-2022 Basophils (Bld) [#/Vol] 0.1 10*3/uL 0.0-0.2 [facility] Basophils/100 WBC Auto (Bld) Ordered By: Margarito Valentine on 06-21-2022 Basophils/100 WBC (Bld) 0.9 % . [facility] [place] Creatinine and Glomerular fi ltration rate.predicted panel (S/P/Bld)Ordered By: Margarito Valentine on 06-21-2022 Creatinine [Mass/Vol] 1.24 mg/dL 0.64-1.27 [facility] Eosinophils Auto (Bld) [#/Vo l]Ordered By: Margarito Valentine on 06-21-2022 Eosinophils (Bld) [#/Vol] 0.2 10*3/uL 0.0-0.45 [facility] Eosinophils/100 WBC Auto (Bl d)Ordered By: Margarito Valentine on 06-21-2022 Eosinophils/100 WBC (Bld) 2.5 % . [facility] Erythrocyte distribution wid th Auto (RBC) [Ratio]Ordered By: Margarito Valentine on 06-21-2022 Erythrocyte distribution width (RBC) [Ratio] 18.0 % 12.0-14.8 [facility] Estimated glomerular filtrat ion rate (GFR) non- AmericanOrdered By: Margarito Valentine on 06-21-2022 GFR/1.73 sq M.predicted among non-blacks MDRD (S/P/Bld) [Vol rate/Area] 56 mL/Min [facility] Hematocrit Auto (Bld) [Volum e fraction]Ordered By: Margarito Valentine on 06-21-2022 Hematocrit (Bld) [Volume fraction] 37.7 % 38.8-50.0 [facility] Hemoglobin [Mass/volume] in BloodOrdered By: Margarito Valentine on 06-21-2022 Hemoglobin (Bld) [Mass/Vol] 12.3 g/dL 13.0-17.0 [facility] Leukocytes [#/volume] correc phil for nucleated erythrocytes in Blood by Automated counOrdered By: Margarito Valentine on 06-21-2022 WBC corrected for nucl RBC Auto (Bld) [#/Vol] 7.1 10*3/uL 4.1-10.5 [facility] Lymphocytes Auto (Bld) [#/Vo l]Ordered By: Margarito Valentine on 06-21-2022 Lymphocytes (Bld) [#/Vol] 1.3 10*3/uL 1.00-4.8 [facility] Lymphocytes/100 WBC Auto (Bl d)Ordered By: Margarito Valentine on 06-21-2022 Lymphocytes/100 WBC (Bld) 18.7 % . [facility] MCH Auto (RBC) [Entitic mass ]Ordered By: Margartio Valentine on 06-21-2022 MCH (RBC) [Entitic mass] 28.2 pg 27.5-35.2 [facility] MCHC Auto (RBC) [Mass/Vol]Or dered By: Margarito Valentine on 06-21-2022 MCHC (RBC) [Mass/Vol] 32.6 g/dL 32.5-35.6 [facility] MCV Auto (RBC) [Entitic vol] Ordered By: Margarito Valentine on 06-21-2022 MCV (RBC) [Entitic vol] 86.5 fL 83.5-101 [facility] [place] Monocytes Auto (Bld) [#/Vol] Ordered By: Margarito Valentine on 06-21-2022 Monocytes (Bld) [#/Vol] 0.7 10*3/uL 0.0-0.8 [facility] Monocytes/100 WBC Auto (Bld) Ordered By: Margarito Valentine on 06-21-2022 Monocytes/100 WBC (Bld) 10.3 % . [facility] [place] Neutrophils Auto (Bld) [#/Vo l]Ordered By: Margarito Valentine on 06-21-2022 Neutrophils (Bld) [#/Vol] 4.8 10*3/uL 1.8-7.7 [facility] Neutrophils/100 WBC Auto (Bl d)Ordered By: Margarito Valentine on 06-21-2022 Neutrophils/100 WBC (Bld) 67.6 % . [facility] No Panel InformationOrdered By: Margarito Valentine on 06-21-2022 Estimated GFR () > 60 mL/Min [facility] Comment on above: GFR estimated refere nce range: According to KDOQI guidelines, <60 ml/min/1.73m2 is sufficient to diagnose a patient with chronic kidney disease. Pharmacy Creatinine Clearance (Chem N/A [facility] Nucleated erythrocytes [Pres ence] in Blood by Automated countOrdered By: Margarito Valentine on 06-21-2022 Nucleated RBC Auto Ql (Bld) 0.1 /100{WBC} 0-0.5 [facility] Platelet mean volume Auto (B ld) [Entitic vol]Ordered By: Margarito Valentine on 06-21-2022 Platelet mean volume (Bld) [Entitic vol] 8.2 fL 6.6-10.1 [facility] Platelets Auto (Bld) [#/Vol] Ordered By: Margarito Valentine on 06-21-2022 Platelets (Bld) [#/Vol] 149 10*3/uL 150-450 [facility] RBC Auto (Bld) [#/Vol]Ordere d By: Margarito Valentine on 06-21-2022 RBC (Bld) [#/Vol] 4.36 10*6/uL 3.90-5.60 [facility] Serum or plasma anion gap de terminationOrdered By: Margarito Valentine on 06-21-2022 Anion gap [Moles/Vol] 10.8 mmol/L 6.0-15.0 [facility] Serum or plasma calcium elan urement (mass/volume)Ordered By: Margarito Valentine on 06-21-2022 Calcium [Mass/Vol] 8.8 mg/dL 8.2-10.2 [facility] Serum or plasma chloride herb surement (moles/volume)Ordered By: Margarito Valentine on 06-21-2022 Chloride [Moles/Vol] 107 mmol/L 95-114 [facility] Serum or plasma glucose elan urement (mass/volume)Ordered By: Margarito Valentine on 06-21-2022 Glucose [Mass/Vol] 103 mg/dL 70-100 [facility] Comment on above: ADA recommended refe rence rangeRandom Glucose Reference Range is dependent on time and content of last meal. Glucose of more than 200 mg/dL in a nonstressed, ambulatory subject supports the diagnosis of Diabetes Mellitus. Serum or plasma potassium me asurement (moles/volume)Ordered By: Margarito Valentine on 06-21-2022 Potassium [Moles/Vol] 4.2 mmol/L 3.5-5.1 [facility] Serum or plasma sodium measu rement (moles/volume)Ordered By: Margarito Valentine on 06-21-2022 Sodium [Moles/Vol] 138 mmol/L 136-146 [facility] Serum or plasma total carbon dioxide measurement (moles/volume)Ordered By: Margarito Valentine on 06-21-2022 CO2 [Moles/Vol] 24.4 mmol/L 22.0-30.0 [facility] Serum or plasma urea nitroge n measurement (mass/volume)Ordered By: Margarito Valentine on 06-21-2022 Urea nitrogen [Mass/Vol] 18 mg/dL 02-15 [facility] WBC Auto (Bld) [#/Vol]Ordere d By: Margarito Valentine on 06-21-2022 WBC (Bld) [#/Vol] 7.1 10*3/uL 4.1-10.5 [facility] Office Visit (Cardiology)on 06-03-2022 Follow-up [...] Complaint ALEX ANDERSON is being seen for [facility]/ekg. 76-year-old white male who I saw [...] Signs Recorded: 03Jun2022 03:38PM Heart Rate71, Apical Deuynrbd578, LUE, Sitting Ondvbxjgw44, LUE, Sitting Height6 ft 2 in Zxnput417 lb BMI Tympinyjpb40.45 kg/m2 BSA Calculated2.2 Tobacco Useb) No PHQ-2 [...] , regular (more content not included)... Normal [employer] Tobacco Screening.on 023 Adult depression screening assessment No [facility]-Sandu sushil 250 DO Work Phone: Fall risk assessment a) No falls within the last year [facility]-Sandu sushil 250 DO Work Phone: Tobacco use status CPHS b) No M [facility] Heart-riskmethodsu sushil 250 DO Work Phone: Basophils Auto (Bld) [#/Vol] Ordered By: Bernabe Cr on 05-22-2022 Basophils (Bld) [#/Vol] 0.1 10*3/uL 0.0-0.2 [facility] Basophils/100 WBC Auto (Bld) Ordered By: Bernabe Cr on 05-22-2022 Basophils/100 WBC (Bld) 1.2 % . [facility] [place] Creatinine and Glomerular fi ltration rate.predicted panel (S/P/Bld)Ordered By: Bernabe Cr on 05-22-2022 Creatinine [Mass/Vol] 1.78 mg/dL 0.64-1.27 [facility] Eosinophils Auto (Bld) [#/Vo l]Ordered By: Bernabe Cr on 05-22-2022 Eosinophils (Bld) [#/Vol] 0.3 10*3/uL 0.0-0.45 [facility] Eosinophils/100 WBC Auto (Bl d)Ordered By: Bernabe Cr on 05-22-2022 Eosinophils/100 WBC (Bld) 3.6 % . [facility] Erythrocyte distribution wid th Auto (RBC) [Ratio]Ordered By: Bernabe Cr on 05-22-2022 Erythrocyte distribution width (RBC) [Ratio] 15.3 % 12.0-14.8 [facility] Estimated glomerular filtrat ion rate (GFR) non- AmericanOrdered By: Bernabe Cr on 05-22-2022 GFR/1.73 sq M.predicted among non-blacks MDRD (S/P/Bld) [Vol rate/Area] 37 mL/Min [facility] Hematocrit Auto (Bld) [Volum e fraction]Ordered By: Bernabe Cr on 05-22-2022 Hematocrit (Bld) [Volume fraction] 36.2 % 38.8-50.0 [facility] Hemoglobin [Mass/volume] in BloodOrdered By: Bernabe Cr on 05-22-2022 Hemoglobin (Bld) [Mass/Vol] 11.7 g/dL 13.0-17.0 [facility] Leukocytes [#/volume] correc phil for nucleated erythrocytes in Blood by Automated counOrdered By: Bernabe Cr on 05-22-2022 WBC corrected for nucl RBC Auto (Bld) [#/Vol] 8.1 10*3/uL 4.1-10.5 [facility] Lymphocytes Auto (Bld) [#/Vo l]Ordered By: Bernabe Cr on 05-22-2022 Lymphocytes (Bld) [#/Vol] 1.4 10*3/uL 1.00-4.8 [facility] Lymphocytes/100 WBC Auto (Bl d)Ordered By: Bernabe Cr on 05-22-2022 Lymphocytes/100 WBC (Bld) 16.9 % . [facility] MCH Auto (RBC) [Entitic mass ]Ordered By: Bernabe Cr on 05-22-2022 MCH (RBC) [Entitic mass] 27.4 pg 27.5-35.2 [facility] MCHC Auto (RBC) [Mass/Vol]Or dered By: Bernabe Cr on 05-22-2022 MCHC (RBC) [Mass/Vol] 32.5 g/dL 32.5-35.6 [facility] MCV Auto (RBC) [Entitic vol] Ordered By: Bernabe Cr on 05-22-2022 MCV (RBC) [Entitic vol] 84.3 fL 83.5-101 [facility] [place] Monocytes Auto (Bld) [#/Vol] Ordered By: Bernabe Cr on 05-22-2022 Monocytes (Bld) [#/Vol] 0.8 10*3/uL 0.0-0.8 [facility] Monocytes/100 WBC Auto (Bld) Ordered By: Bernabe Cr on 05-22-2022 Monocytes/100 WBC (Bld) 10.1 % . [facility] [place] Neutrophils Auto (Bld) [#/Vo l]Ordered By: Bernabe Cr on 05-22-2022 Neutrophils (Bld) [#/Vol] 5.6 10*3/uL 1.8-7.7 [facility] Neutrophils/100 WBC Auto (Bl d)Ordered By: Bernabe Cr on 05-22-2022 Neutrophils/100 WBC (Bld) 68.2 % . [facility] No Panel InformationOrdered By: Bernabe Cr on 05-22-2022 Estimated GFR () 45 mL/Min [facility] Comment on above: GFR estimated refere nce range: According to KDOQI guidelines, <60 ml/min/1.73m2 is sufficient to diagnose a patient with chronic kidney disease. Pharmacy Creatinine Clearance (Chem 39.77 [facility] Nucleated erythrocytes [Pres ence] in Blood by Automated countOrdered By: Bernabe Cr on 05-22-2022 Nucleated RBC Auto Ql (Bld) 0.1 /100{WBC} 0-0.5 [facility] Platelet mean volume Auto (B ld) [Entitic vol]Ordered By: Bernabe Cr on 05-22-2022 Platelet mean volume (Bld) [Entitic vol] 8.7 fL 6.6-10.1 [facility] Platelets Auto (Bld) [#/Vol] Ordered By: Bernabe Cr on 05-22-2022 Platelets (Bld) [#/Vol] 198 10*3/uL 150-450 [facility] RBC Auto (Bld) [#/Vol]Ordere d By: Bernabe Cr on 05-22-2022 RBC (Bld) [#/Vol] 4.29 10*6/uL 3.90-5.60 [facility] Serum or plasma anion gap de terminationOrdered By: Bernabe Cr on 05-22-2022 Anion gap [Moles/Vol] 13.3 mmol/L 6.0-15.0 [facility] Serum or plasma calcium elan urement (mass/volume)Ordered By: Bernabe Cr on 05-22-2022 Calcium [Mass/Vol] 8.3 mg/dL 8.2-10.2 [facility] Serum or plasma chloride herb surement (moles/volume)Ordered By: Bernabe Cr on 05-22-2022 Chloride [Moles/Vol] 104 mmol/L 95-114 [facility] Serum or plasma glucose elan urement (mass/volume)Ordered By: Bernabe Cr on 05-22-2022 Glucose [Mass/Vol] 180 mg/dL 70-100 [facility] Comment on above: ADA recommended refe rence rangeRandom Glucose Reference Range is dependent on time and content of last meal. Glucose of more than 200 mg/dL in a nonstressed, ambulatory subject supports the diagnosis of Diabetes Mellitus. Serum or plasma potassium me asurement (moles/volume)Ordered By: Bernabe Cr on 05-22-2022 Potassium [Moles/Vol] 3.3 mmol/L 3.5-5.1 [facility] Serum or plasma sodium measu rement (moles/volume)Ordered By: Bernabe Cr on 05-22-2022 Sodium [Moles/Vol] 137 mmol/L 136-146 [facility] Serum or plasma total carbon dioxide measurement (moles/volume)Ordered By: Bernabe Cr on 05-22-2022 CO2 [Moles/Vol] 23.0 mmol/L 22.0-30.0 [facility] Serum or plasma urea nitroge n measurement (mass/volume)Ordered By: Bernabe Cr on 05-22-2022 Urea nitrogen [Mass/Vol] 21 mg/dL 9-23 [facility] WBC Auto (Bld) [#/Vol]Ordere d By: Bernabe Cr on 05-22-2022 WBC (Bld) [#/Vol] 8.1 10*3/uL 4.1-10.5 [facility] No Panel InformationOrdered By: Bernabe Cr on 05-21-2022 25-Hydroxy Vitamin D Total 15.9 ng/mL 30-100 [facility] Comment on above: VITAMIN D STATUS 25( [place])VITAMIN D RANGE (ng/mL) Deficient <20 Insufficient 20 to <30Sufficient 30 to 100Reference: Sixto MF,Federico NC, Palomo LESLIE, et al. Evaluation,treatment, and prevention of vitamin D deficiency; an Endocrine Society clinical practice guideline. JCEM. 2010; 96(7):1911-30. Vitamin C level 0.2 mg/dL 0.4-2.0 [facility] Comment on above: This test was develo ped and its performance characteristicsdetermined by [employer]. It has not been cleared orapproved by the Food and Drug Administration.Vitamin C deficiency is generally defined as plasma orserum concentrations less than 0.2 mg/dL and levels between0.2 and 0.4 mg/dL are considered low.Performed at: [facility] [employer] [id number] Director: Mamadou Rodriguez MD, Phone: [phone] Folate [Mass/volume] in Seru m or PlasmaOrdered By: Taz Barnes on 05-20-2022 Folate [Mass/Vol] 5.5 ng/mL >5.9 [facility] Comment on above: Folate reference ran ge: >5.9 ng/mlThe WHO technical consultation on folate and vitamin [id number] has determined that folate concentrations lessthan 4 ng/ml are considered deficient. Laboratory - Chemistry and C hemistry - challengeOrdered By: Taz Barnes on 05-20-2022 Cobalamin (Vitamin B12) [Mass/Vol] 169 pg/mL 180-914 [facility] No Panel InformationOrdered By: Taz Barnes on 05-20-2022 Ova and Parasite Result 1 [facility] Ova and Parasite Result 1 [facility] Ova or parasites identificat ionOrdered By: Taz Barnes on 05-20-2022 Ova and parasites identified LM Nom (Unsp spec) [facility] Ova and parasites identified LM Nom (Unsp spec) [facility] Laboratory - Chemistry and C hemistry - challengeOrdered By: Janice Gonzalez on 05-19-2022 Magnesium [Mass/Vol] 1.7 mg/dL 1.6-2.6 [facility] Automated erythrocytes count in urine sediment (number/area)Ordered By: Taz Barnes on 05-18-2022 RBC Auto (Urine sed) [#/Area] 50-100 [HPF] 0-4 [facility] Automated leukocytes count i n urine sediment (number/area)Ordered By: Taz Barnes on 05-18-2022 WBC Auto (Urine sed) [#/Area] Innumerable [HPF] 0-4 [facility] Automated urine hyaline cast s count (number/volume)Ordered By: Taz Barnes on 05-18-2022 Hyaline casts Auto (U) [#/Vol] None seen [LPF] 0-1 [facility] Bilirubin Test strip Ql (U)O rdered By: Taz Barnes on 05-18-2022 Bilirubin Ql (U) Negative Negative [facility] Casts typing in urine sedime nt by light microscopyOrdered By: Taz Barnes on 05-18-2022 Casts LM Nom (Urine sed) None seen [LPF] None Seen [facility] Color Auto (U)Ordered By: Starr Barnes on 05-18-2022 Color (U) Yellow Yellow [facility] Ketones Auto test strip (U) [Mass/Vol]Ordered By: Taz Barnes on 05-18-2022 Ketones (U) [Mass/Vol] Negative Negative [facility] Nitrite Test strip Ql (U)Ord ered By: Taz Barnes on 05-18-2022 Nitrite Ql (U) Negative Negative [facility] Protein Auto test strip (U) [Mass/Vol]Ordered By: Taz Barnes on 05-18-2022 Protein (U) [Mass/Vol] 100 mg/dL Negative [facility] Specific gravity Auto test s trip (U) [Rel density]Ordered By: Taz Barnes on 05-18-2022 Specific gravity (U) [Rel density] 1.010 1.001-1.03 0 [facility] Squamous epithelial cells de tection in urine sediment by light microscopyOrdered By: Taz Barnes on 05-18-2022 Epithelial cells.squamous LM Ql (Urine sed) 1-2 [HPF] 0-2 [facility] Urine bacteria detection by automated methodOrdered By: Taz Barnes on 05-18-2022 Bacteria Auto Ql (U) None seen None Seen [facility] Urine clarity by refractomet ry automatedOrdered By: Taz Barnes on 05-18-2022 Clarity Refractometry automated (U) Turbid Clear [facility] Urine culture routineOrdered By: Taz Barnes on 05-18-2022 Bacteria identified Cx Nom (U) No Growth 2 Days [facility] Bacteria identified Cx Nom (U) No Growth 2 Days [facility] Urine glucose measurement by automated test strip (mass/volume)Ordered By: Taz Barnes on 05-18-2022 Glucose Auto test strip (U) [Mass/Vol] Normal mg/dL Normal [facility] Urine hemoglobin detection b y automated test stripOrdered By: Taz Barnes on 05-18-2022 Hemoglobin Auto test strip Ql (U) 2+ Negative [facility] Urine leukocyte esterase det ection by automated test stripOrdered By: Taz Barnes on 05-18-2022 Leukocyte esterase Auto test strip Ql (U) 4+ Negative [facility] Urobilinogen Auto test strip (U) [Mass/Vol]Ordered By: Taz Barnes on 05-18-2022 Urobilinogen (U) [Mass/Vol] Normal mg/dL Normal [facility] Yeast detection in urine sed iment by light microscopyOrdered By: Taz Barnes on 05-18-2022 Yeast LM Ql (Urine sed) None seen [HPF] None Se en [facility] pH Auto test strip (U)Ordere d By: Taz Barnes on 05-18-2022 pH (U) 7.5 [pH] 5.0-9.0 [facility] Activated partial thrombopla stin time (aPTT) in platelet poor plasma by coagulation aOrdered By: Taz Barnes on 05-16-2022 aPTT Coag (PPP) [Time] 29.5 s 25.1-36.5 [facility] Body fluid albumin measureme nt (mass/volume)Ordered By: Taz Barnes on 05-16-2022 Albumin (Body fld) [Mass/Vol] 2.9 g/dL 3.2-5.5 [facility] CBC AUTO DIFFon 05-16-2022 BASO # 0.0 103/ul Normal 0.0-0.1 [facility] Comment on above: Performed By: #### C BC #### [facility] [address] [address] [address] Karen Pierce Basophils/100 WBC (Bld) 0.3 % Normal 0.2-2.0 [facility] Comment on above: Performed By: #### C BC #### [facility] [address] [address] [address] Karen Pierce EO # 0.1 103/ul Normal 0.0-0.7 [facility] Comment on above: Performed By: #### C BC #### [facility] [address] [address] [address] Karen Pierce Eosinophils/100 WBC (Bld) 0.7 % Critically low 0.9-7.0 [facility] Comment on above: Performed By: #### C BC #### [facility] [address] [address] [address] Karen Pierce Erythrocyte distribution width (RBC) [Ratio] 14.8 % Normal 11.0-15.0 [facility] Comment on above: Performed By: #### C BC #### [facility] [address] [address] [address] Karen Pierce Hematocrit (Bld) [Volume fraction] 39.4 % Critically low 42.0-54.0 [facility] Comment on above: Performed By: #### C BC #### [facility] [address] [address] [address] Karen Pierce Hemoglobin (Bld) [Mass/Vol] 12.6 g/dL Critically low 14.0-18.0 [facility] Comment on above: Performed By: #### C BC #### [facility] [address] [place] [address] Dr. Karen Pierce IG # 0.04 10e3/ul Critically high 0.00-0.03 [facility] Comment on above: Performed By: #### C BC #### [facility] [address] [place] [address] Dr. Karen Pierce IG % 0.4 % Normal 0.0-0.5 [facility] Comment on above: Performed By: #### C BC #### [facility] [address] [place] [address] Dr. Karen Pierce LYMPH # 1.2 103/ul Normal 1.2-3.8 [facility] Comment on above: Performed By: #### C BC #### [facility] [address] [place] [address] Dr. Karen Pierce Lymphocytes/100 WBC (Bld) 11.8 % Critically low 20.5-60.0 [facility] Comment on above: Performed By: #### C BC #### [facility] [address] [place] [address] Dr. Karen Pierce MANUAL DIFF REQ NO Normal [facility] Comment on above: Performed By: #### C BC #### [facility] [address] [place] [address] Dr. Karen Pierce MCH (RBC) [Entitic mass] 27.5 pg Normal 25.9-34.0 [facility] Comment on above: Performed By: #### C BC #### [facility] [address] [place] [address] Dr. Karen Pierce MCHC (RBC) [Mass/Vol] 32.0 g/dL Normal 29.9-35.2 [facility] Comment on above: Performed By: #### C BC #### [facility] [address] [place] [address] Dr. Karen Pierce MCV (RBC) [Entitic vol] 86.0 fL Normal 80.0-94.0 [facility] Comment on above: Performed By: #### C BC #### [facility] [address] [address] [address] Karen Pierce MONO # 1.4 103/ul Critically high 0.3-0.8 [facility] Comment on above: Performed By: #### C BC #### [facility] [address] [place] [address] Dr. Karen Pierce Monocytes/100 WBC (Bld) 13.8 % Critically high 1.7-12. 0 [facility] Comment on above: Performed By: #### C BC #### [facility] [address] [place] [address] Dr. Karen Pierce NEUT # 7.6 103/ul Critically high 1.4-6.5 [facility] Comment on above: Performed By: #### C BC #### [facility] [address] [place] [address] Dr. Karen Pierce Neutrophils/100 WBC (Bld) 73.0 % Normal 43.0-75.0 [facility] Comment on above: Performed By: #### C BC #### [facility] [address] [place] [address] Dr. Karen Pierce Platelet mean volume (Bld) [Entitic vol] 10.6 fL Normal 9.5-13.5 [facility] Comment on above: Performed By: #### C BC #### [facility] [address] [place] [address] Dr. Karen Pierce PLT 193 103/ul Normal 150-450 [facility] Comment on above: Performed By: #### C BC #### [facility] [address] [place] [address] Dr. Karen Pierce RBC 4.58 106/ul Critically low 4.70-6.10 [facility] Comment on above: Performed By: #### C BC #### [facility] [address] [place] [address] Dr. Karen Pierce WBC 10.4 103/ul Normal 4.0-11.0 [facility] Comment on above: Performed By: #### C BC #### [facility] [address] [place] [address] ABD/PELVIS WO CONon [...] LORENZO SCHERER Date: 2022-05-16 09:21 Normal [facility] CULTURE URINEon 05-16-2022 CULTURE URINE Culture Observations : MODERATE GROWTH OF MIXED SKIN JAS. NO POTENTIAL PATHOGENS SEEN. Normal [facility] Comment on above: Performed By: #### U RTPCR #### [facility] [address] [place], [place] [address] Dr. Karen Pierce Covid-19 PCR ([facility])on 04-26 SARS-CoV-2 (COVID-19) RNA KARI+probe Ql (Unsp spec) Not detected Normal NOT DETECTED [facility] Comment on above: Result Comment: When [...] for this test is supported by the [place] of [employer] and Human Service's declaration that [...] used). Performed By: #### U A #### [facility] [address] [place], [place] [address] Dr. Karen Pierce Creatinine [Mass/volume] in UrineOrdered By: Taz Barnes on 05-16-2022 Creatinine (U) [Mass/Vol] 68.1 mg/dL [facility] Comment on above: No reference range e stablished ER URINE PROFILEon Bilirubin Ql (U) Negative Normal NEGATIVE [facility] Comment on above: Performed By: #### U RTPCR #### [facility] [address] [address] [address] Karen Pierce Clarity (U) CLEAR Normal CLEAR [facility] Comment on above: Performed By: #### U RTPCR #### [facility] [address] [place] [address] Dr. Karen Pierce Color (U) YELLOW Normal YELLOW [facility] Comment on above: Performed By: #### U RTPCR #### [facility] [address] [place] [address] Dr. Karen Pierce ERUSUHA A micrscopic examina tion will be performed if indicated. Normal [facility] Comment on above: Performed By: #### U RTPCR #### [facility] [address] [place] [address] Dr. Karen Pierce Glucose Ql (U) Negative Normal NEGATIVE [facility] Comment on above: Performed By: #### U RTPCR #### [facility] [address] [place] [address] Dr. Karen Pierce Hemoglobin Ql (U) MODERATE Abnormal NEGATIVE [facility] Comment on above: Performed By: #### U RTPCR #### [facility] [address] [place] [address] Dr. Karen Pierce Ketones Ql (U) Negative Normal NEGATIVE [facility] Comment on above: Performed By: #### U RTPCR #### [facility] [address] [place] [address] Dr. Karen Pierce LEUKOCYTES LARGE Abnormal NEGATIVE [facility] Comment on above: Performed By: #### U RTPCR #### [facility] [address] [place] [address] Dr. Karen Pierce Nitrite Ql (U) Negative Normal NEGATIVE [facility] Comment on above: Performed By: #### U RTPCR #### [facility] [address] [place] [address] Dr. Karen Pierce pH (U) 5.5 [pH] Normal 5-9 [facility] Comment on above: Performed By: #### U RTPCR #### [facility] [address] [address] [address] Karen Pierce SPEC GRAVITY <=1.005 Abnormal 1.005-<=1. 025 [facility] Comment on above: Performed By: #### U RTPCR #### [facility] [address] [place] [address] Dr. Karen Pierce UA PROTEIN Negative Normal NEGATIVE/ TRACE [facility] Comment on above: Performed By: #### U RTPCR #### [facility] [address] [address] [address] Karen Pierce UR MICRO IND INDICATED Normal [facility] Comment on above: Performed By: #### U RTPCR #### [facility] [address] [place] [address] Dr. Karen Pierce Urobilinogen Qn (U) 0.2 {Tonio'U}/dL Normal 0.2 - 1. 0 [facility] Comment on above: Performed By: #### U RTPCR #### [facility] [address] [place] [address] Dr. Karen Pierce Globulin Calc (S) [Mass/Vol] Ordered By: Taz Barnes on 05-16-2022 Globulin (S) [Mass/Vol] 3.5 g/dL [facility] - CoagulationOrde red By: Taz Barnes on 05-16-2022 PT Coag (PPP) [Time] 14.2 s 9.0-12.9 [facility] PROF 14(COMP METB)on 022 Albumin [Mass/Vol] 3.1 g/dL Critically low 3.4-5.0 Th e [facility] Comment on above: Performed By: #### U RTPCR #### [facility] [address] [place] [address] Dr. Karen Pierce Albumin/Globulin [Mass ratio] 0.7 {ratio} Normal [facility] Comment on above: Performed By: #### U RTPCR #### [facility] [address] [place] [address] Dr. Karen Pierce ALP [Catalytic activity/Vol] 96 U/L Normal 46-116 [facility] Comment on above: Performed By: #### U RTPCR #### [facility] [address] [address] [address] Karen Pierce ALT [Catalytic activity/Vol] 46 U/L Normal 16-63 [facility] Comment on above: Performed By: #### U RTPCR #### [facility] [address] [address] [address] Karen Pierce Anion gap [Moles/Vol] 19.7 mmol/L Normal Th e [facility] Comment on above: Performed By: #### U RTPCR #### [facility] [address] [address] [address] Karen Pierce AST [Catalytic activity/Vol] 21 U/L Normal 15-37 [facility] Comment on above: Performed By: #### U RTPCR #### [facility] [address] [place] [address] Dr. Karen Pierce Bilirubin [Mass/Vol] 0.3 mg/dL Normal 0.2-1.0 [facility] Comment on above: Performed By: #### U RTPCR #### [facility] [address] [address] [address] Karen Pierce Calcium [Mass/Vol] 8.9 mg/dL Normal 8.5-10.1 [facility] Comment on above: Performed By: #### U RTPCR #### [facility] [address] [address] [address] Karen Pierce Chloride [Moles/Vol] 101 mmol/L Normal 98-107 [facility] Comment on above: Performed By: #### U RTPCR #### [facility] [address] [address] [address] Karen Pierce CO2 [Moles/Vol] 18.3 mmol/L Critically low 21.0-32.0 [facility] Comment on above: Performed By: #### U RTPCR #### [facility] [address] [address] [address] Karen Pierce Creatinine [Mass/Vol] 8.99 mg/dL Critically high 0.70-1.30 [facility] Comment on above: Performed By: #### U RTPCR #### [facility] [address] [address] [address] Karen Piecre EGFR-AF CYMRO 7 mL/min/1.73m2 Critically low >=60 [facility] Comment on above: Performed By: #### U RTPCR #### [facility] [address] [address] [address] Karen Pierce EGFR-NON AF CYMRO 6 mL/min/1.73m2 Critically low >=60 [facility] Comment on above: Performed By: #### U RTPCR #### [facility] [address] [address] [address] Karen Pierce Globulin (S) [Mass/Vol] 4.7 g/dL Normal [facility] Comment on above: Performed By: #### U RTPCR #### [facility] [address] [address] [address] Karen Pierce Glucose [Mass/Vol] 110 mg/dL Critically high 74-106 [facility] Comment on above: Performed By: #### U RTPCR #### [facility] [address] [address] [address] aKren Pierce Potassium [Moles/Vol] 5.0 mmol/L Normal 3.5-5.1 [facility] Comment on above: Performed By: #### U RTPCR #### [facility] [address] [address] [address] Karen Pierce Protein [Mass/Vol] 7.8 g/dL Normal 6.4-8.2 [facility] Comment on above: Performed By: #### U RTPCR #### [facility] [address] [address] [address] Karen Pierce Sodium [Moles/Vol] 134 mmol/L Critically low 136-145 [facility] Comment on above: Performed By: #### U RTPCR #### [facility] [address] [address] [address] Karen Pierce Urea nitrogen [Mass/Vol] 129.0 mg/dL Critically high 7.0-18.0 [facility] Comment on above: Performed By: #### U RTPCR #### [facility] [address] [place], [place] [address] Dr. Karen Pierce Urea nitrogen/Creatinine [Mass ratio] 14.3 mg/mg Normal [facility] Comment on above: Performed By: #### U RTPCR #### [facility] [address] [place], [place] [address] Dr. Karen Pierce Platelet poor plasma interna tional normalized ratio (INR) by coagulation assay (relatOrdered By: Taz Barnes on 05-16-2022 INR Coag (PPP) [Relative time] 1.3 {INR} [facility] Comment on above: INR Therapeutic Rang [...] on 05-16-2022 Protein [Mass/Vol] 6.4 g/dL 6.1-7.9 [facility] Serum or plasma alanine bal otransferase measurement without P-5'-P (enzymatic activiOrdered By: Taz Barnes on 05-16-2022 ALT No additional P-5'-P [Catalytic activity/Vol] 38 U/L 10-60 [facility] Serum or plasma albumin/glob ulin mass ratioOrdered By: Taz Barnes on 05-16-2022 Albumin/Globulin [Mass ratio] 0.8 {ratio} [facility] Serum or plasma alkaline deonte sphatase measurement (enzymatic activity/volume)Ordered By: Taz Barnes on 05-16-2022 ALP [Catalytic activity/Vol] 78 U/L 32-92 [facility] Serum or plasma aspartate am inotransferase measurement (enzymatic activity/volume)Ordered By: Taz Barnes on 05-16-2022 AST [Catalytic activity/Vol] 19 U/L 10-42 [facility] Serum or plasma total biliru bin measurement (mass/volume)Ordered By: Taz Barnes on 05-16-2022 Bilirubin [Mass/Vol] 0.4 mg/dL 0.3-1.2 [facility] URINE MICROSCOPIC ONLYon BACTERIA SMALL Abnormal NONE SEEN [facility] Comment on above: Performed By: #### U RTPCR #### [facility] [address] [place] [address] Dr. Karen Pierce Bacteria identified Cx Nom (U) INDICATED Normal [facility] Comment on above: Performed By: #### U RTPCR #### [facility] [address] [place] [address] Dr. Karen Pierce CAST NONE SEEN Normal NONE SEEN [facility] Comment on above: Performed By: #### U RTPCR #### [facility] [address] [place] [address] Dr. Karen Pierce Crystals LM Nom (Urine sed) NONE SEEN Normal NONE SEEN [facility] Comment on above: Performed By: #### U RTPCR #### [facility] [address] [place] [address] Dr. Karen Pierce Epithelial cells LM Ql (Urine sed) NONE SEEN Normal NONE SEEN /RARE [facility] Comment on above: Performed By: #### U RTPCR #### [facility] [address] [place] [address] Dr. Karen Pierce MUCOUS NONE SEEN Normal NONE SEEN [facility] Comment on above: Performed By: #### U RTPCR #### [facility] [address] [place] [address] Dr. Karen Pierce RBC 20-50 Abnormal 0-2 [facility] Comment on above: Performed By: #### U RTPCR #### [facility] [address] [place] [address] Dr. Karen Pierce WBC (U) [#/Vol] /uL Abnormal NONE SEEN [facility] Comment on above: Performed By: #### U RTPCR #### [facility] [address] [place] [address] Dr. Karen Pierce Urine sodium measurement (mo les/volume)Ordered By: Taz Barnes on 05-16-2022 Sodium (U) [Moles/Vol] 42.0 mmol/L [facility] [place] Comment on above: No reference range e [...] LORENZO SCHERER Date: 2022-05-16 09:25 Normal [facility] CBC AUTO DIFFon 05-15-2022 BASO # 0.0 103/ul Normal 0.0-0.1 [facility] Comment on above: Performed By: #### U A #### [facility] [address] [address] [address] Karen Pierce Basophils/100 WBC (Bld) 0.3 % Normal 0.2-2.0 [facility] Comment on above: Performed By: #### U A #### [facility] [address] [address] [address] Karen Pierce EO # 0.1 103/ul Normal 0.0-0.7 [facility] Comment on above: Performed By: #### U A #### [facility] [address] [address] [address] Karen Pierce Eosinophils/100 WBC (Bld) 0.7 % Critically low 0.9-7.0 [facility] Comment on above: Performed By: #### U A #### [facility] [address] [address] [address] Karen Pierce Erythrocyte distribution width (RBC) [Ratio] 14.9 % Normal 11.0-15.0 [facility] Comment on above: Performed By: #### U A #### [facility] [address] [place] [address] Dr. Karen Pierce Hematocrit (Bld) [Volume fraction] 39.8 % Critically low 42.0-54.0 [facility] Comment on above: Performed By: #### U A #### [facility] [address] [place] [address] Dr. Karen Pierce Hemoglobin (Bld) [Mass/Vol] 12.7 g/dL Critically low 14.0-18.0 [facility] Comment on above: Performed By: #### U A #### [facility] [address] [place] [address] Dr. Karen Pierce IG # 0.06 10e3/ul Critically high 0.00-0.03 [facility] Comment on above: Performed By: #### U A #### [facility] [address] [place] [address] Dr. Karen Pierce IG % 0.5 % Normal 0.0-0.5 [facility] Comment on above: Performed By: #### U A #### [facility] [address] [place] [address] Dr. Karen Pierce LYMPH # 0.9 103/ul Critically low 1.2-3.8 [facility] Comment on above: Performed By: #### U A #### [facility] [address] [place] [address] Dr. Karen Pierce Lymphocytes/100 WBC (Bld) 7.1 % Critically low 20.5-60.0 [facility] Comment on above: Performed By: #### U A #### [facility] [address] [place] [address] Dr. Karen Pierce MANUAL DIFF REQ NO Normal [facility] Comment on above: Performed By: #### U A #### [facility] [address] [place] [address] Dr. Karen Pierce MCH (RBC) [Entitic mass] 27.7 pg Normal 25.9-34.0 [facility] Comment on above: Performed By: #### U A #### [facility] [address] [address] [address] Karen Pierce MCHC (RBC) [Mass/Vol] 31.9 g/dL Normal 29.9-35.2 [facility] Comment on above: Performed By: #### U A #### [facility] [address] [address] [address] Karen Pierce MCV (RBC) [Entitic vol] 86.7 fL Normal 80.0-94.0 [facility] Comment on above: Performed By: #### U A #### [facility] [address] [address] [address] Karen Pierce MONO # 1.0 103/ul Critically high 0.3-0.8 [facility] Comment on above: Performed By: #### U A #### [facility] [address] [place] [address] Dr. Karen Pierce Monocytes/100 WBC (Bld) 8.5 % Normal 1.7-12.0 [facility] Comment on above: Performed By: #### U A #### [facility] [address] [place] [address] Dr. Karen Pierce NEUT # 9.9 103/ul Critically high 1.4-6.5 [facility] Comment on above: Performed By: #### U A #### [facility] [address] [place] [address] Dr. Karen Pierce Neutrophils/100 WBC (Bld) 82.9 % Critically high 43.0-75.0 [facility] Comment on above: Performed By: #### U A #### [facility] [address] [place] [address] Dr. Karen Pierce Platelet mean volume (Bld) [Entitic vol] 9.7 fL Normal 9.5-13.5 [facility] Comment on above: Performed By: #### U A #### [facility] [address] [place] [address] Dr. Karen Pierce PLT 206 103/ul Normal 150-450 [facility] Comment on above: Performed By: #### U A #### [facility] [address] [address] [address] Karen Pierce RBC 4.59 106/ul Critically low 4.70-6.10 [facility] Comment on above: Performed By: #### U A #### [facility] [address] [place] [address] Dr. Karen Pierce WBC 11.9 103/ul Critically high 4.0-11.0 [facility] Comment on above: Performed By: #### U A #### [facility] [address] [place] [address] Dr. Karen Pierce LIPASEon 05-15-2022 Lipase [Catalytic activity/Vol] 340.0 U/L Normal 73.0-393.0 [facility] Comment on above: Performed By: #### U A #### [facility] [address] [place] [address] Dr. Karen Pierce PROF 14(COMP METB)on 022 Albumin [Mass/Vol] 3.1 g/dL Critically low 3.4-5.0 [facility] Comment on above: Performed By: #### U A #### [facility] [address] [place] [address] Dr. Karen Pierce Albumin/Globulin [Mass ratio] 0.7 {ratio} Normal [facility] [facility] Comment on above: Performed By: #### U A #### [facility] [address] [place] [address] Dr. Karen Pierce ALP [Catalytic activity/Vol] 105 U/L Normal 46-116 [facility] Comment on above: Performed By: #### U A #### [facility] [address] [place] [address] Dr. Karen Pierce ALT [Catalytic activity/Vol] 49 U/L Normal 16-63 [facility] Comment on above: Performed By: #### U A #### [facility] [address] [place] [address] Dr. Karen Pierce Anion gap [Moles/Vol] 18.4 mmol/L Normal [facility] Comment on above: Performed By: #### U A #### [facility] [address] [address] [address] Karen Pierce AST [Catalytic activity/Vol] 20 U/L Normal 15-37 [facility] Comment on above: Performed By: #### U A #### [facility] [address] [address] [address] Karen Pierce Bilirubin [Mass/Vol] 0.3 mg/dL Normal 0.2-1.0 [facility] Comment on above: Performed By: #### U A #### [facility] [address] [address] [address] Karen Pierce Calcium [Mass/Vol] 9.1 mg/dL Normal 8.5-10.1 [facility] Comment on above: Performed By: #### U A #### [facility] [address] [address] [address] Karen Pierce Chloride [Moles/Vol] 103 mmol/L Normal 98-107 [facility] Comment on above: Performed By: #### U A #### [facility] [address] [address] [address] Karen Pierce CO2 [Moles/Vol] 20.1 mmol/L Critically low 21.0-32.0 [facility] Comment on above: Performed By: #### U A #### [facility] [address] [place] [address] Dr. Karen Pierce Creatinine [Mass/Vol] 9.58 mg/dL Critically high 0.70-1.30 [facility] Comment on above: Performed By: #### U A #### [facility] [address] [place] [address] Dr. Karen Pierce EGFR-AF CYMRO 6 mL/min/1.73m2 Critically low >=60 [facility] Comment on above: Performed By: #### U A #### [facility] [address] [address] [address] Karen Pierce EGFR-NON AF CYMRO 5 mL/min/1.73m2 Critically low >=60 [facility] Comment on above: Performed By: #### U A #### [facility] [address] [address] [address] Karen Pierce Globulin (S) [Mass/Vol] 4.6 g/dL Normal [facility] Comment on above: Performed By: #### U A #### [facility] [address] [address] [address] Karen Pierce Glucose [Mass/Vol] 114 mg/dL Critically high 74-106 [facility] Comment on above: Performed By: #### U A #### [facility] [address] [address] [address] Karen Pierce Potassium [Moles/Vol] 5.5 mmol/L Critically high 3.5-5.1 [facility] Comment on above: Performed By: #### U A #### [facility] [address] [place] [address] Dr. Karen Pierce Protein [Mass/Vol] 7.7 g/dL Normal 6.4-8.2 [facility] Comment on above: Performed By: #### U A #### [facility] [address] [place] [address] Dr. Karen Pierce Sodium [Moles/Vol] 136 mmol/L Normal 136-145 [facility] Comment on above: Performed By: #### U A #### [facility] [address] [place] [address] Dr. Karen Pierce Urea nitrogen [Mass/Vol] 134.0 mg/dL Critically high 7.0-18.0 [facility] Comment on above: Performed By: #### U A #### [facility] [address] [place] [address] Dr. Karen Pierce Urea nitrogen/Creatinine [Mass ratio] 14.0 mg/mg Normal [facility] Comment on above: Performed By: #### U A #### [facility] [address] [place] [address] Dr. Karen Pierce PROF CHEM 8 (BAS METB)on Anion gap [Moles/Vol] 12.6 mmol/L Normal [facility] Comment on above: Performed By: #### B MP #### [facility] [address] [address] [address] Karen Pierce Calcium [Mass/Vol] 8.7 mg/dL Normal 8.5-10.1 [facility] Comment on above: Performed By: #### B MP #### [facility] [address] [place] [address] Dr. Karen Pierce Chloride [Moles/Vol] 103 mmol/L Normal 98-107 [facility] Comment on above: Performed By: #### B MP #### [facility] [address] [address] [address] Karen Pierce CO2 [Moles/Vol] 27.3 mmol/L Normal 21.0-32.0 [facility] Comment on above: Performed By: #### B MP #### [facility] [address] [place] [address] Dr. Karen Pierce Creatinine [Mass/Vol] 1.26 mg/dL Normal 0.70-1.30 [facility] Comment on above: Performed By: #### B MP #### [facility] [address] [place] [address] Dr. Karen Pirece EGFR-AF CYMRO >60 Normal >=60 [facility] Comment on above: Performed By: #### B MP #### [facility] [address] [place] [address] Dr. Karen Pierce EGFR-NON AF CYMRO 55 mL/min/1.73m2 Critically low >=60 [facility] Comment on above: Performed By: #### B MP #### [facility] [address] [address] [address] Karen Pierce Glucose [Mass/Vol] 111 mg/dL Critically high 74-106 [facility] Comment on above: Performed By: #### B MP #### [facility] [address] [place] [address] Dr. Karen Pierce Potassium [Moles/Vol] 3.9 mmol/L Normal 3.5-5.1 [facility] Comment on above: Performed By: #### B MP #### [facility] [address] [place] [address] Dr. Karen Pierce Sodium [Moles/Vol] 139 mmol/L Normal 136-145 [facility] Comment on above: Performed By: #### B ROBYN #### [facility] [address] [address] [address] Karen Pierce Urea nitrogen [Mass/Vol] 21.0 mg/dL Critically high 7.0-18.0 [facility] Comment on above: Performed By: #### B ROBYN #### [facility] [address] [place], [place] [address] Dr. Karen Pierce Urea nitrogen/Creatinine [Mass ratio] 16.7 mg/mg Normal [facility] Comment on above: Performed By: #### B ROBYN #### [facility] [address] [address] [address] Karen Pierce Comprehensive Metabolic P[facility] 05-11-2021 Albumin [Mass/Vol] 4.5 g/dL Normal 3.6-5.1 [facility] [employer] [employer] Comment on above: Performed By: #### C ROBYN LIPElvie #### [facility] [address], [place] [id number] Albumin/Globulin [Mass ratio] 2.0 {ratio} Normal 1.0-2.5 [facility] Comment on above: Performed By: #### C ROBYN LIPElvie #### [facility] [address], [place] [id number] ALP [Catalytic activity/Vol] 97 U/L Normal 40-129 [facility] Comment on above: Performed By: #### C ROBYN LIPD #### [facility] [address], [place] [id number] ALT [Catalytic activity/Vol] 18 U/L Normal 9-46 [facility] Comment on above: Result Comment: 04/25 Female reference range changed. Performed By: #### C ROBYN LIPD #### [facility] [address], [place] [id number] Anion gap [Moles/Vol] 17 mmol/L Normal 12-20 [facility] Comment on above: Result Comment: Effe ctive 05/31/2019 reference range changed. Performed By: #### C ROBYN LIPD #### [facility] [address], [place] [id number] AST [Catalytic activity/Vol] 15 U/L Normal 10-40 [facility] Comment on above: Performed By: #### C ROBYN LIPElvie #### [facility] [address], [place] [id number] Bilirubin [Mass/Vol] 0.55 mg/dL Normal 0.30-1.20 [facility] Comment on above: Performed By: #### C ROBYN LIPElvie #### [facility] [address], [place] [id number] BUN/CREA 17 Ratio Normal 6-22 [facility] Comment on above: Performed By: #### C ROBYN LIPElvie #### [facility] [address], [place] [id number] Calcium [Mass/Vol] 9.8 mg/dL Normal 8.6-10.2 [facility] Comment on above: Performed By: #### C ROBYN LIPElvie #### [facility] [address], [place] [id number] Chloride [Moles/Vol] 106 mmol/L Normal 98-107 [facility] Comment on above: Performed By: #### C ROBYN LIPElvie #### [facility] [address], [place] [id number] CO2 [Moles/Vol] 23 mmol/L Normal 20-31 [facility] Comment on above: Performed By: #### C ROBYN LIPElvie #### [facility] [address], [place] [id number] Creatinine [Mass/Vol] 1.2 mg/dL Normal 0.7-1.4 [facility] Comment on above: Performed By: #### C ROBYN LIPD #### [facility] [address], [place] [id number] eGFRAA 73 mL/min/1.73m2 Normal >60 [facility] Comment on above: Performed By: #### C ROBYN LIPD #### [facility] [address], [place] [id number] eGFRNAA 60 mL/min/1.73m2 Low >60 [facility] [employer] Comment on above: Performed By: #### C ROBYN, LIPD #### [facility] [address], [place] [id number] Globulin (S) [Mass/Vol] 2.3 g/dL Normal 1.9-3.7 [facility] Comment on above: Performed By: #### C MP, LIPD #### [facility] [address], [place] [id number] Glucose [Mass/Vol] 105 mg/dL High 65-99 [facility] [employer] Comment on above: Result Comment: For FASTING Glucose --- ADA reference ranges: Normal 65-99 mg/dl Prediabetes 100-125 Diabetes >/= 126 Performed By: #### C ROBYN, LIPD #### [facility] [address], [place] [id number] Potassium [Moles/Vol] 4.1 mmol/L Normal 3.5-5.5 [facility] Comment on above: Performed By: #### C ROBYN, LIPD #### [facility] [address], [place] [id number] Protein [Mass/Vol] 6.8 g/dL Normal 6.1-8.1 [facility] [employer] Comment on above: Performed By: #### C ROBYN, LIPD #### [facility] [address], [place] [id number] Sodium [Moles/Vol] 142 mmol/L Normal 135-146 [facility] [employer] Comment on above: Performed By: #### C ROBYN, LIPD #### [facility] [address], [place] [id number] Urea nitrogen [Mass/Vol] 20 mg/dL Normal 7-25 [facility] [employer] Comment on above: Performed By: #### C ROBYN, LIPD #### [facility] [address], [place] [id number] Lipid Panelon 05-11-2021 Cholesterol [Mass/Vol] 109 mg/dL Low 125-200 [facility] Comment on above: Result Comment: Low risk < 200mg/dL Borderline risk 201-239 mg/dl High risk > or equal to 240 Performed By: #### C ROBYN, LIPD #### [facility] [address], [place] [id number] Cholesterol in HDL [Mass/Vol] 30 mg/dL Low >40 [facility] [employer] Comment on above: Result Comment: High Cardiovascular Risk HDL <40 mg/dL Low Cardiovascular Risk HDL > or equal to 60 mg/dl Performed By: #### C MP, LIPD #### [facility] [address], [place] [id number] Cholesterol in LDL [Mass/Vol] 54 mg/dL Normal [facility] [employer] Comment on above: Result Comment: LDL ATP III CLASSIFICATION LDL less than 100 mg/dl Optimal LDL 100-129 mg/dl Near or above optimal LDL 130-159 Borderline high LDL 160-189 High LDL greater than 189 mg/dl Very High Performed By: #### C ROBYN, LIPD #### [facility] [address], [place] [id number] Cholesterol in VLDL [Mass/Vol] 25 mg/dL Normal [facility] [employer] Comment on above: Performed By: #### C ROBYN, LIPD #### [facility] [address], [place] [id number] Cholesterol.total/Sonya sterol in HDL [Mass ratio] 4 {ratio} Normal [facility] Specialist Comment on above: Performed By: #### C ROBYN, LIPD #### [facility] [address], [place] [id number] Triglyceride [Mass/Vol] 126 mg/dL Normal 30-150 [facility] Comment on above: Result Comment: TRIG ATPIII CLASSIFICATIONS TRIG less than 150 mg/dl Normal TRIG 150-199 mg/dl Borderline High TRIG 200-500 mg/dl High TRIG greather than 500 mg/dl Very High Performed By: #### C MP, LIPD #### [facility] [address], [place] [id number] Vital Signs Date Time Vital Sign Value Performing Clinician Facility 11-03-2024 15:54-0400 Body height 187.96 cm Stanley Emerson MD Work Phone: [facility] 11-03-2024 15:54-0400 Body mass index (BMI) [Ratio] 25.7 kg/m2 Stanley Emerson MD Work Phone: [facility] 11-03-2024 15:54-0400 Body weight 90.77 kg Stanley Emerson MD Work Phone: [facility] 11-03-2024 15:54-0400 Diastolic blood pressure 65 mm[Hg] Stanley Emerson MD Work Phone: [facility] 11-03-2024 15:54-0400 Heart rate 66 /min Stanley Emerson MD Work Phone: [facility] 11-03-2024 15:54-0400 Respiratory rate 16 /min Stanley Emerson MD Work Phone: [facility] 11-03-2024 15:54-0400 SaO2% (BldA) [Mass fraction] 99 % Stanley Emerson MD Work Phone: [facility] 11-03-2024 15:54-0400 Systolic blood pressure 99 mm[Hg] Stanley Emerson MD Work Phone: [facility] 10-14-2024 15:01-0400 Diastolic blood pressure 68 mm[Hg] Stanley Emerson MD Work Phone: [facility] 10-14-2024 15:01-0400 Systolic blood pressure 98 mm[Hg] Stanley Emerson MD Work Phone: [facility] 10-11-2024 17:50-0400 Diastolic blood pressure 74 mm[Hg] Stanley Emerson MD Work Phone: [facility] 10-11-2024 17:50-0400 Heart rate 66 /min Stanley Emerson MD Work Phone: [facility] 10-11-2024 17:50-0400 Respiratory rate 20 /min Stanley Emerson MD Work Phone: [facility] 10-11-2024 17:50-0400 SaO2% (BldA) [Mass fraction] 95 % Stanley Emerson MD Work Phone: [facility] 10-11-2024 17:50-0400 Systolic blood pressure 118 mm[Hg] Stanley Emerson MD Work Phone: [facility] 10-11-2024 14:20-0400 Body temperature 97.6 [degF] Stanley Emerson MD Work Phone: [facility] 10-11-2024 13:50-0400 Inhaled oxygen flow rate 2 L/min Stanley Emerson MD Work Phone: [facility] 10-11-2024 12:16-0400 Body height 187.96 cm Stanley Emerson MD Work Phone: [facility] 10-11-2024 12:16-0400 Body weight 90.26 kg Stanley Emerson MD Work Phone: [facility] 10-08-2024 14:43-0400 Body height 188 cm Ruby [place] MD Work Phone: [facility] 10-08-2024 14:43-0400 Body mass index (BMI) [Ratio] 25.68 kg/m2 Ruby [place] MD Work Phone: [facility] 10-08-2024 14:43-0400 Body weight 90.72 kg Ruby Montana MD Work Phone: [facility] 10-08-2024 14:43-0400 Diastolic blood pressure 58 mm[Hg] Ruby [place] MD Work Phone: [facility] 10-08-2024 14:43-0400 Heart rate 75 /min Ruby Montana MD Work Phone: [facility] 10-08-2024 14:43-0400 Systolic blood pressure 80 mm[Hg] Ruby Montana MD Work Phone: [facility] 10-05-2024 08:35-0400 Diastolic blood pressure 67 mm[Hg] [facility] 10-05-2024 08:35-0400 Heart rate 66 /min Julio Cesar Gaspar [facility] 10-05-2024 08:35-0400 Systolic blood pressure 107 mm[Hg] Julio Cesar Gaspar MD [facility] Phone[facility] 10-05-2024 07:05-0400 Body temperature 98.1 [degF] Julio Cesar Gaspar MD [facility] Phone[facility] 10-05-2024 07:05-0400 Respiratory rate 18 /min Julio Cesar Gaspar MD Work Phone: [facility] 10-05-2024 07:05-0400 SaO2% (BldA) [Mass fraction] 94 % Julio Cesar Gaspar MD Work Phone: [facility] 10-02-2024 16:30-0400 Body height 188 cm Julio Cesar Gsapar MD Work Phone: [facility] 10-02-2024 16:30-0400 Body mass index (BMI) [Ratio] 22.47 kg/m2 Julio Cesar Gaspar MD Work Phone: [facility] 10-02-2024 16:30-0400 Body weight 79.38 kg Julio Cesar Gaspar MD Work Phone: [facility] 09-23-2024 09:38-0400 Body temperature 97.6 [degF] [facility] 09-23-2024 09:38-0400 Diastolic blood pressure 82 mm[Hg] [facility] 09-23-2024 09:38-0400 Heart rate 72 /min [facility] 09-23-2024 09:38-0400 Respiratory rate 16 /min [facility] 09-23-2024 09:38-0400 SaO2% (BldA) [Mass fraction] 98 % [facility] 09-23-2024 09:38-0400 Systolic blood pressure 124 mm[Hg] [facility] 09-21-2024 14:08-0400 Body height 188 cm Stanley Emerson MD Work Phone: [facility] 09-21-2024 14:08-0400 Body mass index (BMI) [Ratio] 26.06 kg/m2 Stanley Emerson MD Work Phone: [facility] 09-21-2024 14:08-0400 Body weight 92.08 kg Stanley Emerson MD Work Phone: [facility] 09-10-2024 09:40-0400 Body height 188 cm Teo Al MD Work Phone: [facility] 09-10-2024 09:40-0400 Body mass index (BMI) [Ratio] 26.32 kg/m2 Teo Al MD Work Phone: [facility] 09-10-2024 09:40-0400 Body weight 92.99 kg Teo Al MD Work Phone: [facility] 09-10-2024 09:40-0400 Diastolic blood pressure 64 mm[Hg] Teo Al MD Work Phone: [facility] 09-10-2024 09:40-0400 Heart rate 68 /min Teo Al MD Work Phone: [facility] 09-10-2024 09:40-0400 Systolic blood pressure 110 mm[Hg] Teo Al MD Work Phone: [facility] 08-11-2024 10:26-0400 Body height 187.96 cm Stanley Emerson MD Work Phone: [facility] 08-11-2024 10:26-0400 Body mass index (BMI) [Ratio] 26.1 kg/m2 Stanley Emerson MD Work Phone: [facility] 08-11-2024 10:26-0400 Body weight 92.19 kg Stanley Emerson MD Work Phone: [facility] 08-11-2024 10:26-0400 Diastolic blood pressure 75 mm[Hg] Stanley Emerson MD Work Phone: [facility] 08-11-2024 10:26-0400 Heart rate 65 /min Stanley Emerson MD Work Phone: [facility] 08-11-2024 10:26-0400 Respiratory rate 16 /min Stanley Emerson MD Work Phone: [facility] 08-11-2024 10:26-0400 SaO2% (BldA) [Mass fraction] 97 % Stanley Emerson MD Work Phone: [facility] 08-11-2024 10:26-0400 Systolic blood pressure 115 mm[Hg] Stanley Emerson MD Work Phone: [facility] 07-29-2024 11:13-0500 Body height 188 cm Teo Al MD Work Phone: [facility] 07-29-2024 11:13-0500 Body mass index (BMI) [Ratio] 26.19 kg/m2 Teo Al MD Work Phone: [facility] 07-29-2024 11:13-0500 Body weight 92.53 kg Teo Al MD Work Phone: [facility] 07-29-2024 11:13-0500 Diastolic blood pressure 60 mm[Hg] Teo Al MD Work Phone: [facility] 07-29-2024 11:13-0500 Heart rate 67 /min Teo Al MD Work Phone: [facility] 07-29-2024 11:13-0500 Systolic blood pressure 98 mm[Hg] Teo Al MD Work Phone: [facility] 07-15-2024 10:31-0500 Blood Pressure Location HEATHER OMALLEY [facility] 07-15-2024 10:31-0500 Diastolic blood pressure 60 mm[Hg] HEATHER JOSSELIN [facility] 07-15-2024 10:31-0500 Heart rate 68 /min HEATHER JOSSELIN [facility] 07-15-2024 10:31-0500 Respiratory rate 18 /min HEATHER JOSSELIN [facility] 07-15-2024 10:31-0500 Systolic blood pressure 99 mm[Hg] HEATHER JOSSELIN [facility] 05-21-2024 09:47-0500 Body height 188 cm Teo Al MD Work Phone: [facility] 05-21-2024 09:47-0500 Body mass index (BMI) [Ratio] 26.58 kg/m2 Teo Al MD Work Phone: [facility] 05-21-2024 09:47-0500 Body weight 93.89 kg Teo Al MD Work Phone: [facility] 05-21-2024 09:47-0500 Diastolic blood pressure 70 mm[Hg] Teo Al MD Work Phone: [facility] 05-21-2024 09:47-0500 Heart rate 80 /min Teo Al MD Work Phone: [facility] 05-21-2024 09:47-0500 Systolic blood pressure 106 mm[Hg] Teo Al MD Work Phone: [facility] 05-13-2024 14:38-0500 Body height 188 cm Stanley Emerson MD Work Phone: [facility] 05-13-2024 14:38-0500 Body mass index (BMI) [Ratio] 26.06 kg/m2 Stanley Emerson MD Work Phone: [facility] 05-13-2024 14:38-0500 Body weight 92.08 kg Stanley Emerson MD Work Phone: [facility] 05-13-2024 14:38-0500 Diastolic blood pressure 74 mm[Hg] Stanley Emerson MD Work Phone: [facility] 05-13-2024 14:38-0500 Heart rate 77 /min Stanley Emerson MD Work Phone: [facility] 05-13-2024 14:38-0500 SaO2% (BldA) [Mass fraction] 97 % Stanley Emerson MD Work Phone: [facility] 05-13-2024 14:38-0500 Systolic blood pressure 122 mm[Hg] Stanley Emerson MD Work Phone: [facility] 04-06-2024 11:14-0500 Blood Pressure Location Katia JACOBS [facility] 04-06-2024 11:14-0500 Diastolic blood pressure 69 mm[Hg] Katia JACOBS [facility] 04-06-2024 11:14-0500 Heart rate 79 /min Katia JACOBS [facility] 04-06-2024 11:14-0500 Systolic blood pressure 107 mm[Hg] Katia JACOBS [facility] 03-18-2024 11:18-0400 Body height 188 cm Stanley Emerson MD Work Phone: [facility] 03-18-2024 11:18-0400 Body mass index (BMI) [Ratio] 28.63 kg/m2 Stanley Emerson MD Work Phone: [facility] 03-18-2024 11:18-0400 Body weight 101.15 kg Stanley Emerson MD Work Phone: [facility] 03-18-2024 11:18-0400 Heart rate 82 /min Stanley Emerson MD Work Phone: [facility] 03-18-2024 11:18-0400 SaO2% (BldA) [Mass fraction] 97 % Stanley Emerson MD Work Phone: [facility] 03-08-2024 12:45-0400 Body height 187.96 cm MD Stanley Emerson Work Phone: [facility] 03-08-2024 12:45-0400 Body mass index (BMI) [Ratio] 25.6 kg/m2 MD Stanley Emerson Work Phone: [facility] 03-08-2024 12:45-0400 Body temperature 98.3 [degF] MD Stanley Emerson Work Phone: [facility] 03-08-2024 12:45-0400 Body weight 90.43 kg MD Stanley Emerson Work Phone: [facility] 03-08-2024 12:45-0400 Diastolic blood pressure 69 mm[Hg] MD Stanley Emerson Work Phone: [facility] 03-08-2024 12:45-0400 Heart rate 92 /min MD Stanley Emerson Work Phone: [facility] 03-08-2024 12:45-0400 SaO2% (BldA) [Mass fraction] 99 % MD Stanley Emerson Work Phone: [facility] 03-08-2024 12:45-0400 Systolic blood pressure 103 mm[Hg] MD Stanley Emerson Work Phone: [facility] 02-24-2024 15:190400 Body height 188 cm Leanne Soriano [facility] 02-24-2024 15:19-0400 Body mass index (BMI) [Ratio] 26.32 kg/m2 [facility] 02-24-2024 15:19-0400 Body weight 92.99 kg [facility] 02-24-2024 15:19-0400 Diastolic blood pressure 62 mm[Hg] [facility] 02-24-2024 15:19-0400 Heart rate 85 /min [facility] [facility] 02-24-2024 15:19-0400 Systolic blood pressure 100 mm[Hg] [facility] 02-17-2024 11:52-0400 Body height 188 cm Stanley Emerson MD Work Phone: [facility] 02-17-2024 11:52-0400 Body mass index (BMI) [Ratio] 28.63 kg/m2 Stanley Emerson MD Work Phone: [facility] 02-17-2024 11:52-0400 Body weight 101.15 kg Stanley Emerson MD Work Phone: [facility] 02-10-2024 09:13-0400 Body height 188 cm Teo Al MD Work Phone: [facility] 02-10-2024 09:13-0400 Body mass index (BMI) [Ratio] 26.32 kg/m2 Teo Al MD Work Phone: [facility] 02-10-2024 09:13-0400 Body weight 92.99 kg Teo Al MD Work Phone: [facility] 02-10-2024 09:13-0400 Diastolic blood pressure 68 mm[Hg] Teo Al MD Work Phone: [facility] 02-10-2024 09:13-0400 Heart rate 79 /min Teo Al MD Work Phone: [facility] 02-10-2024 09:13-0400 Systolic blood pressure 102 mm[Hg] Teo Al MD Work Phone: [facility] 02-04-2024 11:48-0400 Body height 187.96 cm MD Stanley Emerson Work Phone: [facility] 02-04-2024 11:48-0400 Body mass index (BMI) [Ratio] 28.2 kg/m2 MD Stanley Emerson Work Phone: [facility] 02-04-2024 11:48-0400 Body temperature 96.1 [degF] MD Stanley Emerson Work Phone: [facility] 02-04-2024 11:48-0400 Body weight 99.79 kg MD Stanley Emerson Work Phone: [facility] 02-04-2024 11:48-0400 Diastolic blood pressure 65 mm[Hg] MD Stanley Emerson Work Phone: [facility] 02-04-2024 11:48-0400 Heart rate 76 /min MD Stanley Emerson Work Phone: [facility] 02-04-2024 11:48-0400 Respiratory rate 18 /min MD Stanley Emerson Work Phone: [facility] 02-04-2024 11:48-0400 SaO2% (BldA) [Mass fraction] 96 % MD Stanley Emerson Work Phone: [facility] 02-04-2024 11:48-0400 Systolic blood pressure 99 mm[Hg] MD Stanley Emerson Work Phone: [facility] 01-23-2024 15:00-0400 Body height 187.96 cm MD Stanley Emerson Work Phone: [facility] 01-23-2024 11:19-0400 Diastolic blood pressure 62 mm[Hg] MD Stanley Emerson Work Phone: [facility] 01-23-2024 11:19-0400 Heart rate 64 /min MD Stanley Emerson Work Phone: [facility] 01-23-2024 11:19-0400 Systolic blood pressure 90 mm[Hg] MD Stanley Emerson Work Phone: [facility] 01-23-2024 11:13-0400 Respiratory rate 20 /min MD Stanley Emerson Work Phone: [facility] 01-23-2024 11:13-0400 SaO2% (BldA) [Mass fraction] 96 % MD Stanley Emerson Work Phone: [facility] 01-23-2024 04:44-0400 Body weight 98.6 kg MD Stanley Emerson Work Phone: [facility] 01-22-2024 23:41-0400 Body temperature 98.2 [degF] MD Stanley Emerson Work Phone: [facility] 01-19-2024 10:00-0400 Inhaled oxygen flow rate 2 L/min MD Stanley Emerson Work Phone: [facility] 01-14-2024 09:35-0400 Diastolic blood pressure 67 mm[Hg] MD Stanley Emerson Work Phone: [facility] 01-14-2024 09:35-0400 Heart rate 65 /min MD Stanley Emerson Work Phone: [facility] 01-14-2024 09:35-0400 Respiratory rate 16 /min MD Stanley Emerson Work Phone: [facility] 01-14-2024 09:35-0400 SaO2% (BldA) [Mass fraction] 97 % MD Stanley Emerson Work Phone: [facility] 01-14-2024 09:35-0400 Systolic blood pressure 109 mm[Hg] MD Stanley Emerson Work Phone: [facility] 01-14-2024 07:41-0400 Body height 187.96 cm MD Stanley Emerson Work Phone: [facility] 01-14-2024 07:41-0400 Body weight 104.32 kg MD Stanley Emerson Work Phone: [facility] 10-22-2023 10:57-0400 Body height 187.96 cm MD Stanley Emerson Work Phone: [facility] 10-22-2023 10:57-0400 Body mass index (BMI) [Ratio] 28 kg/m2 MD Stanley Emerson Work Phone: [facility] 10-22-2023 10:57-0400 Body temperature 96.8 [degF] MD Stanley Emerson Work Phone: [facility] 10-22-2023 10:57-0400 Body weight 99.1 kg MD Stanley Emerosn Work Phone: [facility] 10-22-2023 10:57-0400 Diastolic blood pressure 76 mm[Hg] MD Stanley Emerson Work Phone: [facility] 10-22-2023 10:57-0400 Heart rate 71 /min MD Stanley Emerson Work Phone: [facility] 10-22-2023 10:57-0400 Respiratory rate 18 /min MD Stanley Emerson Work Phone: [facility] 10-22-2023 10:57-0400 SaO2% (BldA) [Mass fraction] 98 % MD Stanley Emerson Work Phone: [facility] 10-22-2023 10:57-0400 Systolic blood pressure 110 mm[Hg] MD Stanley Emerson Work Phone: [facility] 09-18-2023 10:47-0400 Body height 187.96 cm MD Stanley Emerson Work Phone: [facility] 04-25-2024 10:47-0400 Body mass index (BMI) [Ratio] 28.6 kg/m2 MD Stanley Emerson Work Phone: [facility] 09-18-2023 10:47-0400 Body temperature 97.8 [degF] MD Stanley Emerson Work Phone: [facility] 09-18-2023 10:47-0400 Body weight 101.15 kg MD Stanley Emerson Work Phone: [facility] 09-18-2023 10:47-0400 Diastolic blood pressure 68 mm[Hg] MD Stanley Emerson Work Phone: [facility] 09-18-2023 10:47-0400 Heart rate 64 /min MD Stanley Emerson Work Phone: [facility] 09-18-2023 10:47-0400 Respiratory rate 16 /min MD Stanley Emerson Work Phone: [facility] 09-18-2023 10:47-0400 SaO2% (BldA) [Mass fraction] 98 % MD Stanley Emerson Work Phone: [facility] 09-18-2023 10:47-0400 Systolic blood pressure 118 mm[Hg] MD Stanley Emerson Work Phone: [facility] 06-30-2023 14:17-0500 Blood Pressure Location Katia JACOBS [facility] 06-30-2023 14:17-0500 Diastolic blood pressure 77 mm[Hg] Katia JACOBS [facility] 06-30-2023 14:17-0500 Heart rate 70 /min Katia JACOBS [facility] 06-30-2023 14:17-0500 Respiratory rate 16 /min Katia JACOBS [facility] 06-30-2023 14:17-0500 Systolic blood pressure 109 mm[Hg] Katia JACOBS [facility] 04-15-2023 14:00-0500 Body height 187.96 cm Azcelestino Danielss Other [employer] Other 04-15-2023 14:00-0500 Body mass index (BMI) [Ratio] 28.73 kg/m2 Azcelestino Danielss Other [employer] Other 04-15-2023 14:00-0500 Body temperature 96.8 [degF] Azcelestino Francess Other [employer] Other 04-15-2023 14:00-0500 Body weight 101.52 kg Azcelestino Francess Other [employer] Other 04-15-2023 14:00-0500 Diastolic blood pressure 100 mm[Hg] Azcelestino Francess Other [employer] Other 04-15-2023 14:00-0500 Respiratory rate 18 /min Azcelsetino Danielss Other [employer] Other 04-15-2023 14:00-0500 SaO2% (BldA) [Mass fraction] 96 % Azcelestino Bakhous Other [employer] Other 04-15-2023 14:00-0500 Systolic blood pressure 161 mm[Hg] Azcelestino Bakhous Other [employer] Other 03-11-2023 13:38-0400 Blood Pressure Location Katia JACOBS [facility] 03-11-2023 13:38-0400 Diastolic blood pressure 100 mm[Hg] Katia JACOBS [facility] 03-11-2023 13:38-0400 Heart rate 72 /min Katia JACOBS [facility] 03-11-2023 13:38-0400 Systolic blood pressure 150 mm[Hg] Katia JACOBS [facility] 01-22-2023 09:57-0400 Body height 187.96 cm Stanley Emerson Work Phone: [facility] 250 DO Work Phone: 01-22-2023 09:57-0400 Body mass index (BMI) [Ratio] 27.35 kg/m2 Stanley Emerson Work Phone: [facility] 250 DO Work Phone: 01-22-2023 09:57-0400 Body surface area Derived from formula 2.23 m2 Stalney Emerson Work Phone: [facility] 250 DO Work Phone: 01-22-2023 09:57-0400 Body weight 96.62 kg Stanley Emerson Work Phone: [facility] 250 DO Work Phone: 01-22-2023 09:57-0400 Diastolic blood pressure 88 mm[Hg] Stanley Emerson Work Phone: [facility] 250 DO Work Phone: 01-22-2023 09:57-0400 Heart rate 72 /min Stanley Emerson Work Phone: [facility] 250 DO Work Phone: 01-22-2023 09:57-0400 Systolic blood pressure 126 mm[Hg] Stanley Emerson Work Phone: [facility] 250 DO Work Phone: 08-21-2022 14:30-0400 Body height 187.96 cm Carlene Mezatrey Other [facility] [employer] Other 08-21-2022 14:30-0400 Body mass index (BMI) [Ratio] 26.32 kg/m2 Carlene Mezatrey Other [employer] Other 08-21-2022 14:30-0400 Body temperature 97.8 [degF] Carlene Mezatrey Other [employer] Other 08-21-2022 14:30-0400 Body weight 92.99 kg Carlene Kasper Other [facility] [employer] Other 08-21-2022 14:30-0400 Diastolic blood pressure 82 mm[Hg] Carlene Ranjith Other [employer] Other 08-21-2022 14:30-0400 SaO2% (BldA) [Mass fraction] 96 % Carlene Ranjith Other [facility] [employer] Other 08-21-2022 14:30-0400 Systolic blood pressure 124 mm[Hg] Carlene Ranjith Other [employer] Other 07-31-2022 07:25-0500 Blood Pressure Location Katia JACOBS [facility] 07-31-2022 07:25-0500 Diastolic blood pressure 89 mm[Hg] Katiadesi JACOBS [facility] 07-31-2022 07:25-0500 Heart rate 70 /min Katia JACOBS [facility] 07-31-2022 07:25-0500 Respiratory rate 16 /min Katia JACOBS [facility] 07-31-2022 07:25-0500 Systolic blood pressure 130 mm[Hg] Katia JACOBS [facility] 07-25-2022 09:45-0500 Body height 187.96 cm Margarito Valentine Other [employer] Other 07-25-2022 09:45-0500 Body mass index (BMI) [Ratio] 26.32 kg/m2 Margarito Valentine Other [employer] Other 07-25-2022 09:45-0500 Body temperature 96.2 [degF] Margarito Valentine Other [employer] Other 07-25-2022 09:45-0500 Body weight 92.99 kg Margarito Valentine Other [employer] Other 07-25-2022 09:45-0500 Diastolic blood pressure 60 mm[Hg] Margarito Valentine Other [employer] Other 07-25-2022 09:45-0500 SaO2% (BldA) [Mass fraction] 97 % Margarito Valentine Other [employer] Other 07-25-2022 09:45-0500 Systolic blood pressure 110 mm[Hg] Margarito Valentine Other [employer] Other 07-03-2022 07:34-0500 Body temperature 98.9 [degF] MD Stanley Emerson Work Phone: [facility] 07-03-2022 07:34-0500 Diastolic blood pressure 91 mm[Hg] MD Stanley Emerson Work Phone: [facility] 07-03-2022 07:34-0500 Heart rate 87 /min MD Stanley Emerson Work Phone: [facility] 07-03-2022 07:34-0500 Respiratory rate 18 /min MD Stanley Emerson Work Phone: [facility] 07-03-2022 07:34-0500 SaO2% (BldA) [Mass fraction] 94 % MD Stanley Emerson Work Phone: [facility] 07-03-2022 07:34-0500 Systolic blood pressure 159 mm[Hg] MD Stanley Emerson Work Phone: [facility] 07-03-2022 05:46-0500 Body weight 94 kg MD Stanley Emerson Work Phone: [facility] 07-02-2022 16:27-0500 Inhaled oxygen flow rate 6 L/min MD Stanley Emerson Work Phone: [facility] 07-02-2022 10:06-0500 Body height 185.42 cm MD Stanley Emerson Work Phone: [facility] 07-02-2022 10:06-0500 Body mass index (BMI) [Ratio] 27.3 kg/m2 MD Stanley Emerson Work Phone: [facility] 06-19-2022 10:00-0500 Body height 187.96 cm Margarito Valentine Other [employer] Other 06-19-2022 10:00-0500 Body mass index (BMI) [Ratio] 26.32 kg/m2 Margarito Valentine Other [employer] Other 06-19-2022 10:00-0500 Body temperature 97.8 [degF] Margarito Valentine Other [employer] Other 06-19-2022 10:00-0500 Body weight 92.99 kg Margarito Valentine Other [employer] Other 06-19-2022 10:00-0500 Diastolic blood pressure 68 mm[Hg] Margarito Valentine Other [employer] Other 06-19-2022 10:00-0500 SaO2% (BldA) [Mass fraction] 95 % Margarito Valentine Other [employer] Other 06-19-2022 10:00-0500 Systolic blood pressure 108 mm[Hg] Margarito Valentine Other [employer] Other 06-12-2022 13:07-0500 Body height 187.96 cm MD Stanley Emerson Work Phone: [facility] 06-12-2022 13:07-0500 Body weight 93.44 kg MD Stanley Emerson Work Phone: [facility] 06-06-2022 12:00-0500 Body height 187.96 cm Margarito Valentine Other [employer] Other 06-06-2022 12:00-0500 Body mass index (BMI) [Ratio] 26.32 kg/m2 Margarito Valentine Other [employer] Other 06-06-2022 12:00-0500 Body temperature 97.2 [degF] Margarito Valentine Other [employer] Other 06-06-2022 12:00-0500 Body weight 92.99 kg Margarito Topetesarina Other [employer] Other 06-06-2022 12:00-0500 Diastolic blood pressure 70 mm[Hg] Margarito Topetesarina Other [employer] Other 06-06-2022 12:00-0500 SaO2% (BldA) [Mass fraction] 98 % Margarito Topetesarina Other [employer] Other 06-06-2022 12:00-0500 Systolic blood pressure 108 mm[Hg] Margarito Topetesarina Other [employer] Other 06-04-2022 12:00-0500 Body height 187.96 cm Preston Danielss Other [employer] Other 06-04-2022 12:00-0500 Body mass index (BMI) [Ratio] 26.42 kg/m2 Preston Danielss Other [employer] Other 06-04-2022 12:00-0500 Body temperature 96.6 [degF] Preston [employer] Other [employer] Other 06-04-2022 12:00-0500 Body weight 93.35 kg Azcelestino [employer] Other [employer] Other 06-04-2022 12:00-0500 Diastolic blood pressure 70 mm[Hg] Azcelestino [employer]obi[employer] Other [employer] Other 06-04-2022 12:00-0500 Respiratory rate 20 /min Preston Griffin Other [employer] Other 06-04-2022 12:00-0500 SaO2% (BldA) [Mass fraction] 98 % Preston Griffin Other [facility] [employer] Other 06-04-2022 12:00-0500 Systolic blood pressure 100 mm[Hg] Preston Griffin Other [facility] [employer] Other 06-03-2022 15:38-0500 Body height 187.96 cm Stanley Emerson [facility] [employer] 250 DO Work Phone: 06-03-2022 15:38-0500 Body mass index (BMI) [Ratio] 26.45 kg/m2 Stanley Emerson Work Phone: [facility] 250 DO Work Phone: 06-03-2022 15:38-0500 Body surface area Derived from formula 2.2 m2 Stanley Emerson Work Phone: [facility] 250 DO Work Phone: 06-03-2022 15:38-0500 Body weight 93.44 kg Stanley Emerson Work Phone: [facility] 250 DO Work Phone: 06-03-2022 15:38-0500 Diastolic blood pressure 78 mm[Hg] Stanley Emerson Work Phone: [facility] 250 DO Work Phone: 06-03-2022 15:38-0500 Heart rate 71 /min Stanley Emerson Work Phone: [facility] 250 DO Work Phone: 06-03-2022 15:38-0500 Systolic blood pressure 106 mm[Hg] Stanley Emerson Work Phone: [facility] 250 DO Work Phone: 05-22-2022 11:53-0500 Body temperature 98.8 [degF] MD Stanley Emerson Work Phone: [facility] 05-22-2022 11:53-0500 Diastolic blood pressure 72 mm[Hg] MD Stanley Emerson Work Phone: [facility] 05-22-2022 11:53-0500 Heart rate 78 /min MD Stanley Emerson Work Phone: [facility] 05-22-2022 11:53-0500 Respiratory rate 16 /min MD Stanley Emerson Work Phone: [facility] 05-22-2022 11:53-0500 SaO2% (BldA) [Mass fraction] 97 % MD Stanley Emerson Work Phone: [facility] 05-22-2022 11:53-0500 Systolic blood pressure 108 mm[Hg] MD Stanley Emerson Work Phone: [facility] 05-22-2022 06:02-0500 Body weight 88.8 kg MD Stanley Emerson Work Phone: [facility] 05-21-2022 11:48-0500 63 1 Stanley Emerson Work Phone: [facility] 250 DO Work Phone: Comment on above: [id number] 05-17-2022 12:08-0500 Body height 187.96 cm MD Stanley Emerson Work Phone: [facility] Encounters Encounter Date Encounter Type Care Provider Facility Start: 03-10-2025 ambulatory Blanca X Orzech Facilit y:[facility] [place] Start: 02-10-2025 End: 02-10-2025 ambulatory Blanca X Orzech Facility:[facility] Start: 02-10-2025 End: 02-10-2025 Patient encounter procedure Blanca X Orzech [facility] Start: 02-02-2025 End: 02-02-2025 Clinisync Result Encounter Generic External Data Provider [facility] External Department Unsolicited Start: 02-02-2025 End: 02-02-2025 Clinisync Result Encounter Generic External Data Provider [facility] External Department Unsolicited Start: 01-14-2025 ambulatory Eboni Monica Facility:[facility] Start: 01-12-2025 End: 01-12-2025 ambulatory Eboni Monica Facility:[facility] Start: 01-12-2025 End: 01-12-2025 Patient encounter procedure Eboni Tenorioa [facility] Start: 12-14-2024 End: 12-14-2024 ambulatory Eboni Monica Facility:[facility] Start: 12-14-2024 End: 12-14-2024 Patient encounter procedure Eboni Tenorioa [facility] Start: 11-16-2024 End: 11-16-2024 ambulatory Katia JACOBS [facility] Start: 11-16-2024 End: 11-16-2024 Lab Drop off Katia JACOBS [facility] Start: 11-16-2024 End: 11-16-2024 ambulatory Katia JACOBS Facility:[facility] Start: 11-16-2024 End: 11-16-2024 Patient encounter procedure Katia JACOBS [facility] Dominic Start: 11-09-2024 End: 11-09-2024 Bamboo flowsheet Stanley Emerson MD Work Phone: [facility] Start: 11-09-2024 End: 11-09-2024 Bamboo flowsheet Stanley Emerson MD Work Phone: [...] Not Available Start: 11-03-2024 End: 11-03-2024 ambulatory Stanlye Emerson MD Work Phone: [facility] Work Phone: Start: 11-03-2024 End: 11-03-2024 Patient encounter procedure Stanley Emerson MD Work Phone: [facility] Work Phone: Start: 11-02-2024 End: 11-02-2024 ambulatory PA-C HEATHER OMALLEY Facility:[facility] Start: 11-02-2024 End: 11-02-2024 Patient encounter procedure HEATHER OMALLEY [facility] Start: 10-27-2024 End: 10-27-2024 Clinisync Result Encounter Generic External Data Provider [facility] External Department Unsolicited Start: 10-27-2024 End: 10-27-2024 Clinisync Result Encounter Generic External Data Provider [facility] External Department Unsolicited Start: 10-27-2024 Non-patient / Non-visit Stanley Emerson MD Work Phone: [facility] Work Phone: Start: 10-14-2024 End: [...] / Non-visit Stanley Emerson MD Work Phone: [facility] Surg Work Phone: Start: 10-11-2024 ambulatory RUBY [facility] [facility] Start: 10-11-2024 Encounter for preprocedural cardiovascular examination [facility] Layla [place] [facility] Start: 10-11-2024 End: 10-11-2024 Admission to same day surgery center Stanley Emerson MD Work Phone: [facility] Work Phone: Start: 10-11-2024 End: 10-11-2024 ambulatory Stanley Emerson Facility:[facility] Start: 10-08-2024 End: 10-08-2024 Bradyarrhythmia Ruby Montana MD Work Phone: [facility] Work Phone: Start: 10-08-2024 End: 10-08-2024 Office consultation new/estab patient 80 min Ruby Montana MD Work Phone: [facility] Comment on above: Cardiomyopathy, isch emic [...] encounter status Ruby Montana MD Work Phone: [facility] Work Phone: Start: 10-08-2024 End: 10-08-2024 Supraventricular arrhythmia Ruby Montana MD Work Phone: [facility] Work Phone: Start: 10-08-2024 End: 10-08-2024 Ventricular arrhythmia Ruby Montana MD Work Phone: [facility] Work Phone: Start: 10-08-2024 End: 10-08-2024 ambulatory [facility] Start: 10-08-2024 End: 10-08-2024 Encounter for preprocedural cardiovascular examination [facility] Start: 10-05-2024 End: 10-05-2024 ambulatory aKtia JACOBS Facility:[facility] Start: 10-05-2024 End: 10-05-2024 Patient encounter procedure Katia JACOBS [facility] Start: 10-04-2024 End: 10-06-2024 Evaluation and management of inpatient Julio Cesar Gaspar MD Work Phone: [facility] Comment on above: Arrived Start: 10-02-2024 End: 10-06-2024 Clinisync Result Encounter Generic External Data Provider [facility] External Department Unsolicited Start: 10-02-2024 End: 10-06-2024 Clinisync Result Encounter Generic External Data Provider [facility] External Department Unsolicited Start: 10-02-2024 End: 10-05-2024 Evaluation and management of inpatient Julio Cesar Gaspar MD Work Phone: [facility] Med Surg Comment on above: Lower extremity padmini a (Primary Dx); Delirium due to another medical condition; Cognitive and behavioral changes Start: 10-01-2024 End: 10-01-2024 ambulatory Robe Hansen [facility] Work Phone: Start: 10-01-2024 End: 10-01-2024 Departed Referred Talya Bo MD Work Phone: [facility] [place] [facility] Start: 10-01-2024 ambulatory Stanley Emerson Facili ty:[facility] Start: 10-01-2024 End: 10-01-2024 Clinisync Result Encounter Generic External Data Provider [facility] External Department Unsolicited Start: 10-01-2024 End: 10-01-2024 Clinisync Result Encounter Generic External Data Provider [facility] External Department Unsolicited Start: 09-28-2024 End: 09-28-2024 ambulatory Talya Bo [facility] Work Phone: Start: 09-28-2024 End: 09-28-2024 Departed Referred Talya Bo MD Work Phone: [facility] Start: 09-28-2024 End: 09-29-2024 Clinisync Result Encounter Generic External Data Provider [facility] External Department Unsolicited Start: 09-28-2024 End: 09-29-2024 Clinisync Result Encounter Generic External Data Provider [facility] External Department Unsolicited Start: 09-23-2024 End: 09-23-2024 Patient encounter procedure [facility] Work Phone: Start: 09-23-2024 End: 09-23-2024 ambulatory Stanley Emerson [facility] Work Phone: Start: 09-21-2024 End: 09-21-2024 [...] [facility] Start: 09-21-2024 End: 09-21-2024 Bamboo flowsheet Stanley Emerson MD Work Phone: [facility] Start: 09-21-2024 End: 09-21-2024 ambulatory STANLEY EMERSON Not Available Start: 09-10-2024 End: 09-10-2024 Office outpatient visit 25 minutes Teo Al MD Work Phone: [facility] Comment on above: Cardiomyopathy, isch emic; Coronary artery disease involving [place] coronary artery of [place] heart without angina pectoris; S/P PTCA (percutaneous transluminal coronary angioplasty); ST elevation myocardial infarction (STEMI), unspecified artery (Multi); Paroxysmal atrial fibrillation (Multi); High risk medication use; Essential hypertension; Abdominal aortic aneurysm (AAA) greater than 5.5 cm in diameter in male; Dyslipidemia; Stage 3a chronic kidney disease (Multi); Former smoker; BMI 26.0-26.9,adult Start: 09-10-2024 End: 09-10-2024 ambulatory [facility] Start: 09-09-2024 End: 09-09-2024 ambulatory Fabi Gomez Facility:[facility] Start: 09-02-2024 End: 09-02-2024 Clinisync Result Encounter [...] Start: 08-12-2024 End: 08-12-2024 ambulatory MOMO OMALLEY Facility:[facility] Start: 08-11-2024 End: 08-11-2024 ambulatory Stanley Emerson MD Work Phone: [facility] Work Phone: Start: 08-11-2024 End: 08-11-2024 Patient encounter procedure Stanley Emerson MD Work Phone: [facility] Work Phone: Start: 08-06-2024 End: 08-06-2024 Subsequent hospital visit by physician Lisa Alfaro Echo/Vasc Room 2 [facility] Comment on above: ST elevation myocard ial infarction (STEMI), unspecified artery (Multi); Cardiomyopathy, ischemic; Coronary artery disease involving [place] coronary artery of [place] heart without angina pectoris; S/P PTCA (percutaneous transluminal coronary angioplasty) Start: 08-06-2024 End: [facility]06[facility] Start: 08-02-2024 Non-patient / Non-visit Stanley Emerson MD Work Phone[facility] Work Phone: Start: 07-29-2024 End: 07-29-2024 ambulatory Katia JACOBS [facility] [place] Start: 07-29-2024 End: 07-29-2024 ambulatory Katia JACOBS Facility:[facility] Start: 07-29-2024 End: 07-29-2024 Office outpatient visit 40 minutes eTo Al MD Work Phone: [facility] Comment on above: Cardiomyopathy, isch emic (Primary Dx); Coronary artery disease involving [place] coronary artery of [place] heart without angina pectoris; Paroxysmal atrial fibrillation (Multi); High risk medication use; S/P PTCA (percutaneous transluminal coronary angioplasty); ST elevation myocardial infarction (STEMI), unspecified artery (Multi); Infrarenal abdominal aortic aneurysm (AAA) without rupture (CMS-HCC); Essential hypertension; Dyslipidemia; Stage 3a chronic kidney disease (Multi); Transient cerebral ischemia, unspecified type; Hematuria, unspecified type; Hyperthyroidism; BMI 26.0-26.9,adult; Former smoker Start: 07-29-2024 End: 07-29-2024 ambulatory [facility] Ambulatory Start: 07-23-2024 End: 07-25-2024 Clinisync Result Encounter Generic External Data Provider [facility] External Department Unsolicited Start: 07-23-2024 End: 07-25-2024 Clinisync Result Encounter Generic External Data Provider [facility] External Department Unsolicited Start: 07-15-2024 End: 07-15-2024 ambulatory MOMO OMALLEY Facility:[facility] Start: 07-15-2024 End: 07-15-2024 Patient encounter procedure HEATHER OMALLEY [facility] Start: 07-13-2024 End: 07-13-2024 Clinisync Result Encounter [...] 100 Start: 06-01-2024 End: 06-01-2024 ambulatory Blanca Boles Facility: [facility] Start: 06-01-2024 End: 06-01-2024 Patient encounter procedure Blanca Boles [facility] Start: 05-21-2024 End: 05-21-2024 Refill Stanley Emerson MD Work Phone: [facility] Comment on above: Simple chronic bronc hitis (CMS/HCC) Start: 05-21-2024 End: 05-21-2024 Patient encounter procedure Stanley Emerson MD Work Phone: [facility] [place] Work Phone: Start: 05-21-2024 End: 05-21-2024 Office outpatient visit 25 minutes Teo Al MD Work Phone: [facility] Comment on above: Paroxysmal atrial fi brillation (Multi); High risk medication use; Coronary artery disease involving [place] coronary artery of [place] heart without angina pectoris; S/P PTCA (percutaneous transluminal coronary angioplasty); ST elevation myocardial infarction (STEMI), unspecified artery (Multi); Cardiomyopathy, ischemic; Essential hypertension; Dyslipidemia; Abdominal aortic aneurysm (AAA) greater than 5.5 cm in diameter in male (CMS-HCC); Transient cerebral ischemia, unspecified type; Stage 3a chronic kidney disease (Multi); BMI 26.0-26.9,adult; Former smoker Start: 05-21-2024 End: 05-21-2024 ambulatory TEO Mendez [facility] Ambulatory Start: 05-13-2024 End: 05-13-2024 Patient encounter procedure Stanley Emerson MD Work Phone: [facility] 100 Comment on above: Encounter for Medica re annual wellness exam (Primary Dx); Advance directive discussed with patient; Encounter for screening for other disorder; Screening for alcohol problem; Former smoker; Overweight Start: 05-13-2024 End: 05-13-2024 ambulatory STANLEY EMERSON Not Available Start: 05-13-2024 End: 05-13-2024 Bamboo flowsheet Stanley Emerson MD Work Phone: [facility] 100 Start: 05-13-2024 End: 05-13-2024 Bamboo flowsheet Stanley Emerson MD Work Phone: [facility] 100 Start: 05-10-2024 End: 05-10-2024 Bamboo flowsheet Stanley Emerson MD Work Phone: [facility] 100 Start: 05-10-2024 End: 05-10-2024 Bamboo flowsheet Stanley Emerson MD Work Phone: [...] Available Start: 05-06-2024 ambulatory Fabi Gomez Facility :[facility] Start: 05-05-2024 End: 05-05-2024 ambulatory Fabi Gomez Facility:[facility] Start: 04-28-2024 End: 04-30-2024 Clinisync Result Encounter Generic External Data Provider [facility]S External Department Unsolicited Start: 04-28-2024 End: 04-30-2024 Clinisync Result Encounter Generic External Data Provider [facility] External Department Unsolicited Start: 04-06-2024 End: 04-06-2024 ambulatory Katia JACOBS [place] [place] Start: 04-06-2024 End: 04-06-2024 Lab Drop off Katia JACOBS [facility] Start: 04-06-2024 End: 04-06-2024 ambulatory Katia R ARLENE Facility: [facility] Start: 04-06-2024 End: 04-06-2024 Patient encounter procedure Katia JACOBS [facility] Start: 03-23-2024 End: 03-23-2024 Clinisync Result Encounter Generic External Data Provider NOMS External Department Unsolicited Start: 03-23-2024 End: 03-23-2024 Clinisync Result Encounter Generic External Data Provider NOMS External Department Unsolicited Start: 03-18-2024 End: 03-18-2024 Bamboo flowsheet Stanley Emerson MD Work Phone: [facility] 100 Start: 03-18-2024 End: 03-18-2024 Bamcherylo flowsheet Stanley Emerson MD Work Phone: [facility] 100 Start: 03-18-2024 End: 03-18-2024 Office outpatient visit 15 minutes Stanley Emerson MD Work Phone: [facility] 100 Comment on above: Pneumonia of right l ower lobe due to infectious organism Start: 03-18-2024 End: 03-18-2024 ambulatory STANLEY EMERSON Not Available Start: 03-08-2024 End: 03-08-2024 Patient encounter procedure MD Stanley Emerson Work Phone: [facility] Work Phone: Start: 03-08-2024 End: 03-08-2024 ambulatory MD Stanley Emerson Work Phone: [facility] Work Phone: Start: 03-04-2024 End: 03-04-2024 Clinisync Result Encounter Generic External Data Provider NOMS External Department Unsolicited Start: 03-04-2024 End: 03-04-2024 Clinisync Result Encounter Generic External Data Provider N[facility]S External Department Unsolicited Start: 03-02-2024 End: 03-02-2024 ambulatory Blanca Boles Facility:[facility] Start: 03-02-2024 End: 03-02-2024 Patient encounter procedure Blanca Boles [facility] Eva Start: 02-24-2024 End: 02-24-2024 Professional / ancillary services management Leanne Soriano LPN [facility] Comment on above: Paroxysmal atrial fi brillation (Multi) Start: 02-24-2024 End: 02-24-2024 ambulatory [facility] Ambulatory Start: 02-17-2024 End: 02-17-2024 ambulatory STANLEY EMERSON Not Available Start: 02-17-2024 End: 02-17-2024 Office outpatient visit 15 minutes Stanley Emerson MD Work Phone: [facility] 100 Comment on above: Pneumonia of left lo wer lobe due to infectious organism (Primary Dx); Simple chronic bronchitis (CMS/HCC) Start: 02-10-2024 End: 02-10-2024 Office outpatient visit 40 minutes Teo Al MD Work Phone: [facility] Comment on above: Coronary artery dise ase involving [place] coronary artery of [place] heart without angina pectoris (Primary Dx); Paroxysmal atrial fibrillation (Multi); High risk medication use; S/P PTCA (percutaneous transluminal coronary angioplasty); Cardiomyopathy, ischemic; ST elevation myocardial infarction (STEMI), unspecified artery (Multi); Dyslipidemia; Stage 3a chronic kidney disease (Multi); Transient cerebral ischemia, unspecified type; BMI 26.0-26.9,adult; Former smoker; QT prolongation Start: 02-10-2024 End: 02-10-2024 ambulatory [facility] Ambulatory Start: 02-04-2024 End: 02-04-2024 ambulatory MD Stanley Emerson Work Phone: [facility] Work Phone: Start: 02-04-2024 End: 02-04-2024 Patient encounter procedure MD Stanley Emerson Work Phone: [facility] [place] Work Phone: Start: 01-29-2024 End: 01-29-2024 ambulatory STANLEY EMERSON Not Available Start: 01-23-2024 Non-patient / Non-visit MD Kai Emerson Work Phone: [facility] Work Phone: Start: 01-20-2024 ambulatory Blanca X Orzech Facilit y:[facility] [place] Start: 01-16-2024 Non-patient / Non-visit MD Kai Emerson Work Phone: [facility] Work Phone: Start: 01-16-2024 Non-patient / Non-visit MD Kai Emerson Work Phone: [facility] Pulmonary Disease Work Phone: Start: 01-16-2024 End: 01-23-2024 Evaluation and management of inpatient MD Stanley Emerson Work Phone: [facility] [place] [facility] Work Phone: Start: 01-14-2024 Non-patient / Non-visit MD Kai Emerson Work Phone: [facility] Gastroenterology Work Phone: Start: 01-14-2024 End: 01-14-2024 Admission to same day surgery center MD Stanley Emerson Work Phone: [facility]-Digestive Health Work Phone: Start: 01-14-2024 End: 01-14-2024 ambulatory MD Stanley Emerson Work Phone: [facility] Work Phone: Start: 12-26-2023 End: 12-26-2023 Patient encounter procedure MD Stanley Emerson Work Phone: [facility] Start: 12-26-2023 End: 12-26-2023 ambulatory MD Stanley Emerson Work Phone: [facility] Work Phone: Start: 12-25-2023 End: 12-25-2023 ambulatory Fabi Layla Linea Facility:[facility] [place] Start: 12-25-2023 End: 12-25-2023 Patient encounter procedure Fabi J Galea [facility] Start: 11-19-2023 End: 11-19-2023 ambulatory STANLEY EMERSON Not Available Start: 11-04-2023 End: 11-04-2023 Patient encounter procedure Blanca Boles [facility] Start: 10-22-2023 End: 10-22-2023 ambulatory MD Stanley Emerson Work Phone: [facility] Work Phone: Start: 10-22-2023 End: 10-22-2023 Patient encounter procedure MD Stanley Emerson Work Phone: [facility] Nephrology Work Phone: Start: 10-16-2023 Non-patient / Non-visit MD Kai Emerson Work Phone: [facility] Work Phone: Start: 10-07-2023 End: 10-07-2023 Patient encounter procedure Katia JACOBS [facility] Start: 10-03-2023 End: 10-03-2023 Lab Drop off Katia JACOBS [facility] Start: 10-03-2023 End: 10-03-2023 Patient encounter procedure Katia R ARLENE [facility] Start: 09-30-2023 Non-patient / Non-visit MD Kai Emerson Work Phone: [facility] Work Phone: Start: 09-18-2023 Bradyarrhythmia MD Stanley billingsley Work Phone: [facility] Start: 09-18-2023 End: 09-18-2023 ambulatory MD Stanley Emerson Work Phone: [facility] Work Phone: Start: 09-18-2023 End: 09-18-2023 Patient encounter procedure MD Stanley Emerson Work Phone: [facility] Vascular Surgery Work Phone: Start: 09-11-2023 End: 09-11-2023 Patient encounter procedure Katia JACOBS [facility] Start: 08-18-2023 End: 08-18-2023 ambulatory MD Stanley Emerson Work Phone: [facility] Work Phone: Start: 08-18-2023 End: 08-18-2023 Patient encounter procedure MD Stanley Emerson Work Phone: [facility] [place] Work Phone: Start: 08-15-2023 End: 08-15-2023 Patient encounter procedure Katia JACOBS [facility] Start: 06-30-2023 End: 06-30-2023 Patient encounter procedure Katia JACOBS [facility] Start: 06-16-2023 End: 06-16-2023 Patient encounter procedure Katia JACOBS [facility] Start: 06-10-2023 End: 06-10-2023 Patient encounter procedure Katia JACOBS [facility] Start: 05-06-2023 End: 05-06-2023 ambulatory Aziz Bakhous Other [employer] Other Start: 05-06-2023 Telephone encounter Aziz Bakhous [facility] Start: 04-16-2023 End: 04-16-2023 ambulatory Aziz Bakhous Other [employer] Other Start: 04-16-2023 Telephone encounter Aziz Bakhous [facility] Start: 04-15-2023 End: 04-15-2023 ambulatory Aziz Bakhous Other [employer] Other Start: 04-15-2023 Office outpatient vi sit 25 minutes Aziz Bakhous [facility] Start: 04-08-2023 End: 04-08-2023 ambulatory MD Stanley Emerson Work Phone: [facility] Work Phone: Start: 04-08-2023 End: 04-08-2023 Patient encounter procedure MD Stanley Emerson Work Phone: [facility] Start: 03-11-2023 End: 03-11-2023 Lab Drop off Katia JACOBS [facility] Start: 03-11-2023 End: 03-11-2023 Patient encounter procedure Katia JACOBS [facility] [place] Start: 01-22-2023 Office outpatient vi sit 25 minutes Stanley Emerson Work Phone: [facility] 250 DO Work Phone: Start: 01-22-[address] Teo Al Facility: Start: 12-25-2022 End: 12-25-2022 Patient encounter procedure Katia JACOBS [facility] Start: 12-10-2022 End: 12-10-2022 Lab Drop off Katia JACOBS [facility] Start: 12-10-2022 End: 12-10-2022 Patient encounter procedure Katia JACOBS [facility] Start: 10-04-2022 End: 10-04-2022 Patient encounter procedure Katia JACOBS [facility] Start: 09-18-2022 End: 09-18-2022 Patient encounter procedure Katia JACOBS [facility] Start: 09-15-2022 End: 09-15-[address] STANLEY EMERSON . Facility:[facility] Start: 09-12-2022 End: 09-12-[address] STANLEY EMERSON . Facility:[facility] Start: 09-08-2022 Encounter for preprocedural laboratory examination PRESTON GRIFFIN [facility] Start: 09-04-2022 End: 09-05-[address] STANLEY EMERSON . Facility:[facility] Start: 09-04-2022 Encounter for preprocedural cardiovascular examination DR KATIA JACOBS . [facility] Start: 09-02-2022 End: 09-03-[address] STANLEY EMERSON . Facility:[facility] Start: 09-02-2022 End: 09-03-2022 Encounter for preprocedural laboratory examination DR STANLEY EMERSON . Facility:[facility] Start: 09-02-2022 End: 09-03-[address] STANLEY EMERSON . Facility:[facility] Start: 09-02-2022 End: 09-03-2022 Encounter for preprocedural cardiovascular examination DR STANLEY EMERSON . Facility:[facility] Start: 08-21-2022 End: 08-21-2022 ambulatory Carlene Kasper Other [employer] Other Start: 08-21-2022 Follow-up encounter Carlene Dickerson [facility] Start: 08-16-2022 End: 08-16-2022 ambulatory MD Stanley Emerson Work Phone: [facility] Work Phone: Start: 08-16-2022 End: 08-16-2022 Patient encounter procedure MD Stanley Emerson Work Phone: [facility] [place] Work Phone: Start: 07-31-2022 End: 07-31-2022 Patient encounter procedure Katia JACOBS [facility] Start: 07-25-2022 End: 07-25-2022 ambulatory Margarito Valentine Other [employer] Other Start: 07-25-2022 Postop follow up vis it related to original px Margarito Valentine [facility] Start: 07-24-2022 End: 07-24-2022 ambulatory MD Stanley Emerson Work Phone: [facility] Work Phone: Start: 07-24-2022 End: 07-24-2022 Patient encounter procedure MD Stanley Emerson Work Phone: [facility] [place] Work Phone: Start: 07-02-2022 End: 07-03-2022 Evaluation and management of inpatient MD Stanley Emerson Work Phone: [facility] [place] [facility] Work Phone: Start: 06-21-2022 End: 06-21-2022 Patient encounter procedure MD Stanley Emerson Work Phone: [facility]-Pre-Surgical Testing Work Phone: Start: 06-19-2022 End: 06-19-2022 ambulatory Margarito Valentine Other [employer] Other Start: 06-19-2022 Office outpatient vi sit 25 minutes Margarito Valentine [facility] Vascular Surgery Start: 06-12-2022 End: 06-12-2022 ambulatory MD Stanley Emerson Work Phone: [facility] Work Phone: Start: 06-12-2022 End: 06-12-2022 Patient encounter procedure MD Stanley Emerson Work Phone: [facility] [place] Work Phone: Start: 06-11-2022 End: 06-11-2022 Patient encounter procedure HEATHER OMALLEY [facility] Start: 06-06-2022 End: 06-06-2022 ambulatory Margarito Valentine Other [employer] Other Start: 06-06-2022 Office outpatient vi sit 25 minutes Margarito Valentine [facility] Start: 06-04-2022 End: 06-04-2022 ambulatory Jonhcelestino Starkssaurav Other [facility] [employer] Other Start: 06-04-2022 Office outpatient vi sit 25 minutes Preston Griffin [facility] Start: 06-03-2022 Office outpatient vi sit 25 minutes Stanley Emerson Work Phone: [facility] 250 DO Work Phone: Start: 06-03-[address] Stanley Emerson Facility:[id number] Start: 05-21-[address] Stanley Emerson Facility:[id number] Start: 05-20-[address] Stanley Emerson Facility:[id number] Start: 05-19-[address] Teo Al Facility:[id number] Start: 05-18-[address] Teo Al Facility:[id number] Start: 05-17-[address] Stanley Emerson Facility:[id number] Start: 05-17-2022 Bradyarrhythmia MD Stanley billingsley Work Phone: [facility] Comment on above: Problem List clean-u p per request of Phys. EHR Cmte Start: 05-17-[address] Teo Al Facility:[id number] Start: 05-16-2022 End: 05-22-2022 Encounter for preprocedural cardiovascular examination MD Stanley Emerson Work Phone: [facility] Start: 05-16-2022 End: 05-22-2022 Evaluation and management of inpatient MD Stanley Emerson Work Phone: [facility] Work Phone: Start: 05-16-2022 End: 05-16-[address] STANLEY EMERSON . Facility: Start: 05-15-2022 End: 05-16-[address] STANLEY EMERSON . Facility:[facility] Start: 01-04-2022 End: 01-04-[address] STANLEY EMERSON . Facility: Patient encounter status Peteludy Layla Idania Work Phone: [facility] 250 DO Work Phone: End: 01-22-2023 Patient encounter status Stanley Rich Samanthachery Work Phone: [facility] 250 DO Work Phone: Procedures Date Procedure Procedure Detail Performing Clinician Start: 02-02-2025 ALL HEMOGLOBIN Generic External Data Provider Start: 11-16-2024 Cystoscopy Katia KWESI SHELBYAidee Start: 10-27-2024 [facility] CBC WITH PLATEL ET NO DIFFERENTIAL Generic External Data Provider Start: 10-11-2024 IR Angiogram w/TLA/S tent Left Leg (Left) Stanley Emerson MD Work Phone: Start: 10-05-2024 Assay of magnesium Waqar Pink MD Work Phone: Start: 10-05-2024 BASIC METABOLIC PANE L W/ REFLEX TO MG FOR LOW K Waqar Pink MD Work Phone: Start: 10-04-2024 Ecg routine ecg w/le ast 12 lds w/i&r Waqar Pink MD Work Phone: Start: 10-04-2024 Dup-scan xtr veins complete bilateral study Chrissy Plata MD Work Phone: Start: 10-04-2024 Virus centrifuge enh ncd id imfluor stain ea Waqar Pink MD Work Phone: Start: 10-04-2024 BASIC METABOLIC PANE L W/ REFLEX TO MG FOR LOW K Waqar Pink MD Work Phone: Start: 10-04-2024 Prothrombin time Waqar Pink MD Work Phone: Start: 10-03-2024 Assay of ferritin Waqar Pink MD Work Phone: Start: 10-03-2024 BASIC METABOLIC PANE L W/ REFLEX TO MG FOR LOW K Waqar Pink MD Work Phone: Start: 10-03-2024 VITAMIN B12 & FOLATE Rodriguez Pink MD Work Phone: Start: 10-02-2024 End: 10-02-2024 Culture bacterial quanttative colony count urine Waqar Pink MD Work Phone: Start: 10-02-2024 MHPT CULT,URINE Generic External Data Provider Start: 10-02-2024 Iadna s aureus methicillin resist amp probe tq Waqar Pink MD Work Phone: Start: 10-02-2024 RESPIRATORY PANEL, MOLECULAR, WITH COVID-19 Waqar Pink MD Work Phone: Start: 10-02-2024 Antibody mycoplsm Waqar Pink MD Work Phone: Start: 10-02-2024 Basic metabolic pane l calcium total Waqar Pink MD Work Phone: Start: 10-02-2024 Thyrotropin [Units/volume] in Serum or Plasma Ruby Montana MD Work Phone: Start: 10-01-2024 [place]URE [place] [facility] [place] [facility] External Data Provider Start: 10-01-2024 Urine culture Stanley barclay MD Work Phone: Start: 09-28-2024 [place]URE [place] [facility] [place] [facility] External Data Provider Start: 09-28-2024 [...] STIM HORMONE Generic External Data Provider Start: 03-31-2025 ITP Generic Ex ternal Data Provider Start: [...] Data Provider Start: 04-06-2024 Flexible cystoscopy Rosemary desi JACOBS Start: 03-23-2024 ALL HEMOGLOBIN Generic [...] stent i n inferior vena cava Stanley Singhchery Work Phone: Operation on bladder Stanley Emerson Work Phone: Urinary catheter placement Stanley Emerson Work Phone: NEGATED: Highlighted row has not occurred! Colonoscopy Stanley Layla Samanthachery Work Phone: Plan of Treatment Date Care Activity Detail Author Start: 10-02-2025 Thyroid stimulating hormone measurement TSH Level [facility] Start: 08-06-2025 Echocardiography Echocardiogram [facility] Start: 05-13-2025 Medicare Annual Wellness (AWV) Medicare Annual Wellness (AWV) [facility] Start: 05-10-2025 End: 05-10-2025 Patient encounter procedure 05/10/2025 2:00 PM EST Office Visit [address] [facility] [address] [place] [address] Stanley Emerson MD [address] [facility] [address] [place] [address] (Fax) [address] Start: 03-29-2025 End: 03-29-2025 Patient encounter procedure 03/29/2025 11:00 AM EST Office Visit [facility] [address] [facility] [address] [place] [id number] Teo Al MD [address] [facility] [address] [place] [address] [facility] Start: 03-21-2025 End: 05-21-2025 Complete Pulmonary Function Test (Spirometry/DLCO/Lung Volumes) Complete Pulmonary Function Test (Spirometry/DLCO/Lung Volumes) PFT Routine Paroxysmal atrial fibrillation (Multi) High risk medication use Expected: 03/21/2025 (Approximate), Expires: 05/21/2025 [facility] Work Phone: Comment on above: Expected: 03/21/2025 (Approximate), Expi res: 05/21/2025 Start: 03-21-2025 End: 05-21-2025 XR Chest 2 Views XR chest 2 views Imaging Routine Paroxysmal atrial fibrillation (Multi) High risk medication use Expected: 03/21/2025, Expires: 05/21/2025 [facility] Work Phone: Comment on above: Expected: 03/21/2025, Expires: Start: 03-12-2025 End: 09-10-2025 Complete Pulmonary Function Test (Spirometry/DLCO/Lung Volumes) Complete Pulmonary Function Test (Spirometry/DLCO/Lung Volumes) PFT Routine Paroxysmal atrial fibrillation (Multi) High risk medication use Expected: 03/12/2025 (Approximate), Expires: 09/10/2025 [facility] Work Phone: Comment on above: Expected: 03/12/2025 (Approximate), Expi res: 09/10/2025 Start: 01-29-2025 End: 07-29-2025 Aspartate aminotransferase [Enzymatic activity/volume] in Serum or Plasma by With P-5'-P Aspartate Aminotransferase Lab Routine Paroxysmal atrial fibrillation (Multi) High risk medication use Expected: 01/29/2025, Expires: 07/29/2025 [facility] Work Phone: Comment on above: Expected: 01/29/2025, Expires: Start: 01-29-2025 End: 07-29-2025 Basic metabolic 2000 panel - Serum or Plasma Basic Metabolic Panel Lab Routine Paroxysmal atrial fibrillation (Multi) High risk medication use Expected: 01/29/2025, Expires: 07/29/2025 [facility] Work Phone: Comment on above: Expected: 01/29/2025, Expires: Start: 01-29-2025 End: 07-29-2025 Complete Pulmonary Function Test (Spirometry/DLCO/Lung Volumes) Complete Pulmonary Function Test (Spirometry/DLCO/Lung Volumes) PFT Routine Paroxysmal atrial fibrillation (Multi) High risk medication use Expected: 01/29/2025 (Approximate), Expires: 07/29/2025 [facility] Work Phone: Comment on above: Expected: 01/29/2025 (Approximate), Expi res: 07/29/2025 Start: 01-29-2025 End: 07-29-2025 Lipid 1996 panel - Serum or Plasma Lipid Panel Lab Routine Dyslipidemia Expected: 01/29/2025 (Approximate), Expires: 07/29/2025 [facility] Work Phone: Comment on above: Expected: 01/29/2025 (Approximate), Expi res: 07/29/2025 Start: 01-29-2025 End: 07-29-2025 Thyrotropin [Units/volume] in Serum or Plasma Thyroid Stimulating Hormone Lab Routine Paroxysmal atrial fibrillation (Multi) High risk medication use Expected: 01/29/2025, Expires: 07/29/2025 [facility] Work Phone: Comment on above: Expected: 01/29/2025, Expires: Start: 01-29-2025 End: 07-29-2025 XR Chest 2 Views XR chest 2 views Imaging Routine Paroxysmal atrial fibrillation (Multi) High risk medication use Expected: 01/29/2025 (Approximate), Expires: 07/29/2025 [facility] Work Phone: Comment on above: Expected: 01/29/2025 (Approximate), Expi res: 07/29/2025 Start: 01-24-2025 Influenza vaccination Influenza Vaccine (#1) [facility] Start: 01-15-2025 Echocardiography Echocardiogram [facility] Start: 11-19-2024 End: 05-21-2025 Alanine aminotransferase [Enzymatic activity/volume] in Serum or Plasma by With P-5'-P Alanine Aminotransferase Lab Routine Paroxysmal atrial fibrillation (Multi) High risk medication use Expected: 11/19/2024 (Approximate), Expires: 05/21/2025 [facility] Work Phone: Comment on above: Expected: 11/19/2024 (Approximate), Expi res: 05/21/2025 Start: 11-19-2024 End: 05-21-2025 Aspartate aminotransferase [Enzymatic activity/volume] in Serum or Plasma by With P-5'-P Aspartate Aminotransferase Lab Routine Paroxysmal atrial fibrillation (Multi) High risk medication use Expected: 11/19/2024 (Approximate), Expires: 05/21/2025 [facility] Work Phone: Comment on above: Expected: 11/19/2024 (Approximate), Expi res: 05/21/2025 Start: 11-19-2024 End: 05-21-2025 Basic metabolic 2000 panel - Serum or Plasma Basic Metabolic Panel Lab Routine Paroxysmal atrial fibrillation (Multi) High risk medication use Expected: 11/19/2024 (Approximate), Expires: 05/21/2025 [facility] Work Phone: Comment on above: Expected: 11/19/2024 (Approximate), Expi res: 05/21/2025 Start: 11-19-2024 End: 05-21-2025 CBC panel - Blood by Automated count CBC Lab Routine Paroxysmal atrial fibrillation (Multi) High risk medication use Expected: 11/19/2024 (Approximate), Expires: 05/21/2025 [facility] Work Phone: Comment on above: Expected: 11/19/2024 (Approximate), Expi res: 05/21/2025 Start: 11-19-2024 End: 05-21-2025 Lipid 1996 panel - Serum or Plasma Lipid Panel Lab Routine Dyslipidemia Expected: 11/19/2024 (Approximate), Expires: 05/21/2025 [facility] Work Phone: Comment on above: Expected: 11/19/2024 (Approximate), Expi res: 05/21/2025 Start: 11-19-2024 End: 05-21-2025 Thyrotropin [Units/volume] in Serum or Plasma Thyroid Stimulating Hormone Lab Routine Paroxysmal atrial fibrillation (Multi) High risk medication use Expected: 11/19/2024 (Approximate), Expires: 05/21/2025 [facility] Work Phone: Comment on above: Expected: 11/19/2024 (Approximate), Expi res: 05/21/2025 Start: 11-09-2024 End: 11-09-2024 Patient encounter procedure [facility] Comment on above: Arrived Start: 10-14-2024 End: 10-14-2024 Patient encounter procedure 10/14/2024 2:30 PM EDT Office Visit [facility] [address] [place] [id number] Stanley Emerson MD [address] [place] [address] [facility] Start: 10-11-2024 [facility] Start: 10-08-2024 End: 10-08-2025 Basic metabolic 2000 panel - Serum or Plasma Basic Metabolic Panel Lab Routine Pre-operative cardiovascular examination Expected: 10/08/2024 (Approximate), Expires: 10/08/2025 [facility] Work Phone: Comment on above: Expected: 10/08/2024 (Approximate), Expi res: 10/08/2025 Start: 10-08-2024 End: 10-08-2025 CBC panel - Blood by Automated count CBC Lab Routine Pre-operative cardiovascular examination Expected: 10/08/2024 (Approximate), Expires: 10/08/2025 [facility] Work Phone: Comment on above: Expected: 10/08/2024 (Approximate), Expi res: 10/08/2025 Start: 10-08-2024 End: 10-08-2025 PT and aPTT panel - Platelet poor plasma by Coagulation assay Coagulation Screen Lab Routine Pre-operative cardiovascular examination Bradyarrhythmia on pre-operative cardiovascular examination Pre-operative cardiovascular examination, supraventricular arrhythmia Expected: 10/08/2024 (Approximate), Expires: 10/08/2025 [facility] Service Area Work Phone: Comment on above: Expected: 10/08/2024 (Approximate), Expi res: 10/08/2025 Start: 10-02-2024 Annual Wellness Visit (Medicare) Annual Wellness Visit (Medicare) [facility] Start: 10-01-2024 Urine culture [facility] Start: 10-01-2024 Bacteria identified in Urine by Culture Urine Culture [facility] Start: 09-28-2024 Urine culture [facility] Start: 09-28-2024 Bacteria identified in Urine by Culture Urine Culture [facility] Start: 09-23-2024 US Lower extremity artery - bilateral [facility] Start: 09-21-2024 End: 09-21-2024 Patient encounter procedure 09/21/2024 2:15 PM EDT Office Visit [facility] 100 112 [facility] [address] [place] [address] Stanley Emerson MD 112 [facility] 100 [place] [address] 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 [...] 09-17-2024 COVID-19 Vaccine () COVID-19 Vaccine () [facility] Start: 09-17-2024 COVID-19 Vaccine () COVID-19 Vaccine () [facility] Start: 09-10-2024 End: 09-10-2025 Aspartate aminotransferase [Enzymatic activity/volume] in Serum or Plasma by With P-5'-P Aspartate Aminotransferase Lab Routine Dyslipidemia Expected: 09/10/2024 (Approximate), Expires: 09/10/2025 [facility] Work Phone: Comment on above: Expected: 09/10/2024 (Approximate), Expi res: 09/10/2025 Start: 09-10-2024 End: 09-10-2025 Basic metabolic 2000 panel - Serum or Plasma Basic Metabolic Panel Lab Routine Cardiomyopathy, ischemic Coronary artery disease involving [place] coronary artery of [place] heart without angina pectoris Expected: 09/10/2024 (Approximate), Expires: 09/10/2025 [facility] Work Phone: Comment on above: Expected: 09/10/2024 (Approximate), Expi res: 09/10/2025 Start: 09-10-2024 End: 09-10-2025 Thyrotropin [Units/volume] in Serum or Plasma Thyroid Stimulating Hormone Lab Routine Dyslipidemia Expected: 09/10/2024 (Approximate), Expires: 09/10/2025 [facility] Work Phone: Comment on above: Expected: 09/10/2024 (Approximate), Expi res: 09/10/2025 Start: 09-09-2024 End: 07-29-2025 Thyrotropin [Units/volume] in Serum or Plasma Thyroid Stimulating Hormone Lab Routine Paroxysmal atrial fibrillation (Multi) High risk medication use Expected: 09/09/2024 (Approximate), Expires: 07/29/2025 [facility] Work Phone: Comment on above: Expected: 09/09/2024 (Approximate), Expi res: 07/29/2025 Start: 07-29-2024 End: 07-29-2024 Patient encounter procedure 07/29/2024 11:00 AM EST Office Visit [facility] [address] [id number] Teo Al MD 703 [facility], [place] [address] [place] [id number] [facility] Start: 05-21-2024 End: 05-21-2025 Alanine aminotransferase [Enzymatic activity/volume] in Serum or Plasma by With P-5'-P Alanine Aminotransferase Lab Routine Paroxysmal atrial fibrillation (Multi) High risk medication use Expected: 05/21/2024 (Approximate), Expires: 05/21/2025 [facility] Work Phone: Comment on above: Expected: 05/21/2024 (Approximate), Expi res: 05/21/2025 Start: 05-21-2024 End: 05-21-2025 Aspartate aminotransferase [Enzymatic activity/volume] in Serum or Plasma by With P-5'-P Aspartate Aminotransferase Lab Routine Paroxysmal atrial fibrillation (Multi) High risk medication use Expected: 05/21/2024 (Approximate), Expires: 05/21/2025 [facility] Service Area Work Phone: Comment on above: Expected: 05/21/2024 (Approximate), Expi res: 05/21/2025 Start: 05-21-2024 End: 05-21-2025 Basic metabolic 2000 panel - Serum or Plasma Basic Metabolic Panel Lab Routine Paroxysmal atrial fibrillation (Multi) High risk medication use Expected: 05/21/2024 (Approximate), Expires: 05/21/2025 [facility] Work Phone: Comment on above: Expected: 05/21/2024 (Approximate), Expi res: 05/21/2025 Start: 05-21-2024 End: 05-21-2025 Thyrotropin [Units/volume] in Serum or Plasma Thyroid Stimulating Hormone Lab Routine Paroxysmal atrial fibrillation (Multi) High risk medication use Expected: 05/21/2024 (Approximate), Expires: 05/21/2025 [facility] Work Phone: Comment on above: Expected: 05/21/2024 [...] Visit [facility] 100 [address] [facility] [address] [place] [address] Stanley Emerson MD [address] [facility] [address] [place] [address] (Fax) Essential hypertension, benign (CMS/HCC); Hypertensive nephropathy [...] procedure 04/12/2024 3:20 PM EST Office Visit [facility] 703 [facility] [address] [place] [address] Teo Al MD 703 [facility], [address] [place] [address] [facility] Start: 03-18-2024 End: 03-18-2024 Patient encounter procedure 03/18/2024 11:30 AM EDT Office Visit [facility] [address] [phone] Stanley Emerson MD [address] [place] [address] (Fax) Pneumonia of right lower lobe due to infectious organism [facility] Comment on above: Pneumonia of right lower lobe due to inf ectious organism Start: 03-11-2024 End: 02-09-2025 Complete Pulmonary Function Test (Spirometry/DLCO/Lung Volumes) Complete Pulmonary Function Test (Spirometry/DLCO/Lung Volumes) PFT Routine Paroxysmal atrial fibrillation (Multi) High risk medication use Expected: 03/11/2024 (Approximate), Expires: 02/09/2025 [facility] Work Phone: Comment on above: Expected: 03/11/2024 (Approximate), Expi res: 02/09/2025 Start: 03-11-2024 End: 02-09-2025 XR Chest 2 Views XR chest 2 views Imaging Routine Paroxysmal atrial fibrillation (Multi) High risk medication use Expected: 03/11/2024, Expires: 02/09/2025 [facility] Work Phone: Comment on above: Expected: 03/11/2024, Expires: Start: 03-08-2024 Plain chest X-ray XR chest 2V* [facility] Start: 02-18-2024 End: 02-18-2024 Professional / ancillary services management 02/18/2024 1:00 PM EDT Ancillary Procedure [facility] [address] [phone] [facility] Start: 02-17-2024 End: 02-09-2025 ECG 12 Lead ECG 12 Lead ECG Routine Paroxysmal atrial fibrillation (Multi) Expected: 02/17/2024 (Approximate), Expires: 02/09/2025 [facility] Service Area Work Phone: Comment on above: Expected: 02/17/2024 (Approximate), Expi res: 02/09/2025 Start: 02-10-2024 End: 02-09-2025 Aspartate aminotransferase [Enzymatic activity/volume] in Serum or Plasma by With P-5'-P Aspartate Aminotransferase Lab Routine Paroxysmal atrial fibrillation (Multi) High risk medication use Expected: 02/10/2024 (Approximate), Expires: 02/09/2025 [facility] Work Phone: Comment on above: Expected: 02/10/2024 (Approximate), Expi res: 02/09/2025 Start: 02-10-2024 End: 02-09-2025 Basic metabolic 2000 panel - Serum or Plasma Basic Metabolic Panel Lab Routine Paroxysmal atrial fibrillation (Multi) High risk medication use Expected: 02/10/2024 (Approximate), Expires: 02/09/2025 [facility] Work Phone: Comment on above: Expected: 02/10/2024 (Approximate), Expi res: 02/09/2025 Start: 02-10-2024 End: 02-09-2025 Thyrotropin [Units/volume] in Serum or Plasma Thyroid Stimulating Hormone Lab Routine Paroxysmal atrial fibrillation (Multi) High risk medication use Expected: 02/10/2024 (Approximate), Expires: 02/09/2025 [facility] Work Phone: Comment on above: Expected: 02/10/2024 (Approximate), Expi res: 02/09/2025 Start: 01-25-2024 COVID-19 Vaccine () COVID-19 Vaccine () [facility] Start: 01-25-2024 Influenza vaccination Influenza Vaccine (#1) [facility] Start: 01-23-2024 [facility] Start: 01-23-2024 Bacteria identified in Urine by Culture [facility] Start: 01-22-2024 Referral to clinical offset pressman [facility] Start: 01-22-2024 Referral to rehabilitation physician [facility] Start: 01-21-2024 FUV, Provider: Teo Al, Status: Pen, Time: 11:50 AM FUV, Provider: Teo Al, Status: Pen, Time: 11:50 AM [facility] 250 DO Work Phone: Start: 01-16-2024 Dilation of Coronary Artery, One Artery with Drug-eluting Intraluminal Device, Percutaneous Approach Dilation of Coronary Artery, One Artery with Drug-eluting Intraluminal Device, Percutaneous Approach [facility] Start: 01-16-2024 Fluoroscopy of Left Heart using Low Osmolar Contrast Fluoroscopy of Left Heart using Low Osmolar Contrast [facility] Start: 01-16-2024 Fluoroscopy of Multiple Coronary Arteries using Low Osmolar Contrast Fluoroscopy of Multiple Coronary Arteries using Low Osmolar Contrast [facility] Start: 01-16-2024 Measurement of Cardiac Sampling and Pressure, Left Heart, Percutaneous Approach Measurement of Cardiac Sampling and Pressure, Left Heart, Percutaneous Approach [facility] Start: 01-16-2024 Hospital admission [facility] Start: 01-16-2024 Referral to cardiac rehabilitation program [facility] Start: 01-16-2024 [facility] Start: 01-14-2024 [facility] Start: 04-08-2023 Bacteria identified in Urine by Culture [facility] Start: 12-10-2022 FUV, Provider: Teo Al, Status: Pen, Time: 10:10 AM FUV, Provider: Teo Al, Status: Pen, Time: 10:10 AM [facility] 250 DO Work Phone: Start: 07-24-2022 MR Abdomen WO and W contrast IV [facility] Start: 07-24-2022 MRI of abdomen with contrast MR abdomen wo/w con [facility] Start: 07-03-2022 [facility] Start: 07-02-2022 Fluoroscopy of Aorta and Bilateral Lower Extremity Arteries using Low Osmolar Contrast Fluoroscopy of Aorta and Bilateral Lower Extremity Arteries using Low Osmolar Contrast [facility] Start: 07-02-2022 Restriction of Abdominal Aorta with Intraluminal Device, Percutaneous Approach Restriction of Abdominal Aorta with Intraluminal Device, Percutaneous Approach [facility] Start: 05-22-2022 [facility] Start: 05-20-2022 Evaluation procedure [facility] Start: 05-19-2022 [facility] Start: 05-17-2022 End: 05-17-2022 [facility] Start: 05-16-2022 Referral to performance tester [facility] Start: 05-16-2022 Referral to vascular surgeon [facility] Start: 05-16-2022 Hospital admission [facility] Start: 11-30-2018 RSV High Risk: (Elderly (60+) or Population) (1 - 1-dose 75+ series) RSV High Risk: (Elderly (60+) or Population) (1 - 1-dose 75+ series) [facility] Start: 2003 RSV patients and/or patients aged 60+ years (1 - 1-dose 60+ series) RSV patients and/or patients aged 60+ years (1 - 1-dose 60+ series) [facility] Start: 11-30-1993 Shingles vaccine (1 of 2) Shingles vaccine (1 of 2) [facility] [employer] Start: 11-30-1993 Zoster Vaccines (1 of 2) Zoster Vaccines (1 of 2) [facility] Start: 11-30-1965 DTaP/Tdap/Td Vaccines (1 - Tdap) DTaP/Tdap/Td Vaccines (1 - Tdap) [facility] Start: 11-30-1962 DTaP/Tdap/Td vaccine (1 - Tdap) DTaP/Tdap/Td vaccine (1 - Tdap) [facility] [employer] Start: 11-30-1962 Urine screening for protein CKD: Urine Protein Screening [facility] Start: 11-30-1961 Diabetes mellitus screening Diabetes Screening [facility] Start: 1955 Depression Screen Depression Screen [facility] [employer] [facility] Start: 11-30-1953 Lipid panel Lipids [facility] Start: 1943 Creatinine measurement Creatinine Level [facility] Start: 1943 Lipid panel Lipid Panel [facility] Start: 1943 Medicare Annual Wellness Visit Medicare Annual Wellness Visit (AWV) [facility] Start: 1943 Potassium measurement Potassium Level [facility] Start: 1943 Thyroid stimulating hormone measurement TSH Level [facility] End: 10-07-2024 Basic Metabolic Panel w/ Reflex to MG Basic Metabolic Panel w/ Reflex to MG Lab Routine Tomorrow AM for 5 Occurrences starting 10/03/2024 until 10/07/2024, 3 completed [facility] Comment on above: Tomorrow AM for 5 Occurrences starting 0 10/03/2024 until 10/07/2024, 3 completed BLOOD CULTURE 1 BLOOD CULTURE 1 Lab Routine 04/28/2024 8:34 AM [employer] BLOOD CULTURE 2 BLOOD CULTURE 2 Lab Routine 04/28/2024 8:40 AM [employer] End: 10-07-2024 CBC W Auto Differential panel - Blood CBC with Auto Differential Lab Routine Tomorrow AM for 5 Occurrences starting 10/03/2024 until 10/07/2024, 3 completed [employer] Comment on above: Tomorrow AM for 5 Occurrences starting 0 10/03/2024 until 10/07/2024, 3 completed Culture, Urine Culture, Urine Microbiology [employer] 10/02/2024 3:43 PM EDT [facility] [employer] ECG 12 Lead ECG 12 Lead ECG Routine Paroxysmal atrial fibrillation (Multi) 02/24/2024 2:45 PM EDT [facility] Service Area Work Phone: Insj implntbl defib pulse gen w/1 existing ld ICD SUBQ IMPLANT Cardiomyopathy, ischemic Ventricular ectopy/arrhythmia, pre-operative cardiovascular exam [employer]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 [employer] Comment on above: Daily for 3 Weeks starting 10/03/2024 un til 10/23/2024, 3 completed Renal function 1999 panel - Serum or Plasma [facility] Renal function 1999 panel - Serum or Plasma [facility] Renal function 1999 panel - Serum or Plasma [facility] Renal function 1999 panel - Serum or Plasma [facility] Spirometry panel Incent[employer] chadd metry Respiratory Care Routine Every 2hr while awake until discontinued starting 10/02/2024 [facility] [employer] Comment on above: Every 2hr while awake until discontinued starting 10/02/2024 URINE CULTURE - [facility] [place] - [facility] Lab Routine 09/28/2024 6:08 PM EDT [facility] URINE CULTURE - [facility] [place]U RE - [facility] Lab Routine 10/01/2024 3:40 PM EDT [facility] Healthcare End: 08-06-2024 US Heart Transthoracic [facility] Area Work Phone: Comment on above: Once for 1 Occurrences starting 08/07/19 until 08/06/2024 US Thoracic and abdo arturo aorta [facility] XR Chest 2 Views [facility] Immunizations Immunization Date Immunization Notes Care Provider Markus russell 08-23-2024 RSV, recombinant, protein subunit RSVpreF, adjuvant reconstitu, 120mcg/0.5mL, PF (Arexvy) Stanley Emerson MD Work Phone: [facility] 03-19-2024 influenza virus vacc ine, unspecified formulation Katia JACOBS [facility] 03-19-2024 influenza, seasonal, injectable Generic Provider [facility] 03-19-2024 Pfizer Purple Cap SARS-CoV-2 Vaccination Generic Provider [facility] 05-28-2023 Pneumococcal Conjuga te PCV 20 Stanley Emerson MD Work Phone: [facility] 03-26-2023 Influenza, Seasonal, Quadrivalent, Adjuvanted Teo Al MD Work Phone: [facility] Work Phone: 03-26-2023 influenza virus vacc ine, unspecified formulation Teo Al MD Work Phone: [facility] 02-16-2023 SARS-COV-2 (COVID-19 ) vaccine, mRNA, spike protein, LNP, PF, valente-sucrose, 30 mcg/0.3 mL Stanley Emerson MD Work Phone: [facility] 05-20-2022 influenza, high dose seasonal, preservative-free Teo Al MD Work Phone: [facility] Work Phone: 03-29-2022 Moderna Bivalent Connell ster Vaccination Stanley Emerson MD Work Phone: [facility] 03-29-2022 Pfizer COVID-19 Vac Bivalent 30 MCG/0.3ML Intramuscular Suspension Stanley Emerson Work Phone: [facility] 03-16-2022 influenza virus vacc ine, unspecified formulation Katia JACOBS [facility] 03-16-2022 influenza, seasonal, injectable Stanley Emerson Work Phone: [place] [address] DO Work Phone: 03-06-2022 Fluzone High-Dose Quadrivalent 0.7 ML Intramuscular Suspension Prefilled Syringe Stanley Emerson Work Phone: [facility] 250 DO Work Phone: 03-06-2022 influenza virus vacc ine, unspecified formulation HEATHER JOSSELIN [facility] 10-03-2021 Comirnaty 30 MCG/0.3 ML Intramuscular Suspension Stanley Emerson Work Phone: [place] [address] DO Work Phone: 10-03-2021 COVID-19 mRNA, Taniya wright (Pfizer) MD Stanley Emerson Work Phone: [facility] 10-03-2021 SARS-CoV-2 mRNA (psvhoqwehhl-yyev-fuawxw e) vaccine HEATHER QUINNRY [facility] 10-03-2021 SARS-CoV-2, Unspecified Jesus Emerson MD Work Phone: [facility] 04-23-2021 pneumococcal polysaccharide vaccine, 23 valent Stanley Emerson Work Phone: [facility] 02-22-2021 influenza virus vacc ine, unspecified formulation Katiadesi JACOBS [facility] 02-22-2021 influenza, injectabl e, quadrivalent, preservative free Stanley Emerson [facility] DO Work Phone: 02-21-2021 Pfizer-BioNTech COVI D-19 Vacc 30 MCG/0.3ML Intramuscular Suspension Stanley Emerson Work Phone: [facility] Comment on above: Result Comment: 2022: [id number] 02-14-2021 influenza, high dose seasonal, preservative-free Teo Al MD Work Phone: [facility] Work Phone: 07-28-2020 Pfizer-BioNTech COVI D-19 Vacc 30 MCG/0.3ML Intramuscular Suspension Stanley Emerson Work Phone: [facility] 07-07-2020 Pfizer-BioNTech COVI D-19 Vacc 30 MCG/0.3ML Intramuscular Suspension Stanley Emerson Work Phone: [facility] 02-22-2020 influenza virus vacc ine, unspecified formulation HEATHER OMALLEY [facility] 02-22-2020 influenza, injectabl e, quadrivalent, preservative free Stanley Emerson MD Work Phone: [facility] 02-22-2020 Seasonal, quadrivale nt, recombinant, injectable influenza vaccine, preservative free Stanley Emerson [facility] Work Phone: Payers Date Payer Category Payer Self-pay 2022 Medicare [id number] 2015 Medicare supplementa l policy (as second payer) [employer] MEDICARE SUPPLEMENT [id number] 2015 Private Health Insurance [id number] 2010 Medicare [id number] 1959 Medicare [id number] 1959 Private Health Insurance [id number] 1943 Unknown [id number] .840.1.251495.3.579.2 .59 1943 Unknown [id number] 840.1.457349.3.579.2 .59 1943 Unknown [id number] .840.1.320877.3.579.2 .59 1943 Unknown [id number] 840.1.149269.3.579.2 .593 1943 Unknown [id number] .840.1.379158.3.579.2 .59 1943 Unknown [id number] 840.1.005115.3.579.2 .593 1943 Unknown [id number] 2.840.1.647049.3.579.2 .593 1943 Unknown [id number] .840.1.172772.3.579.2 .593 1943 Unknown [id number] 2.840.1.578318.3.579.2 .356 -194 Unknown [id number] 2.16.840.1.382112.3.579.2 .356 194 Unknown [id number] 2.16.840.1.592875.3.579.2 .356 194 Unknown [id number] 2.16.840.1.574619.3.579.2 .356 194 Unknown [id number] 2.16.840.1.140662.3.579.2 .356 194 Unknown [id number] 2..840.1.114648.3.579.2 .356 1943 Unknown [id number] 2.840.1.233380.3.579.2 .356 194 Unknown [id number] 2.840.1.510372.3.579.2 .356 1943 Unknown [id number] 2.840.1.757510.3.579.2 .727 194 Unknown [id number] 2.840.1.287516.3.579.2 .72 1943 Unknown [id number] 2.840.1.747322.3.579.2 .727 194 Unknown [id number] .840.1.285014.3.579.2 .727 194 Unknown [id number] .840.1.523717.3.579.2 .727 194 Unknown [id number] 2.16.840.1.259617.3.579.2 .727 194 Unknown [id number] 2.16840.1.732829.3.579.2 .727 194 Unknown [id number] 2.16840.1.414995.3.579.2 .72194 Unknown [id number] 2.16.840.1.885529.3.579.2 .727 1943 Unknown [id number] 2.16.840.1.193052.3.579.2 .727 1943 Unknown [id number] 2.16.840.1.876702.3.579.2 .727 1943 Unknown [id number] 2.840.1.884976.3.579.2 .72 1943 Unknown [id number] 2.840.1.533271.3.579.2 .72 1943 Unknown [id number] 2.840.1.769184.3.579.2 .72 1943 Unknown [id number] 2.840.1.077599.3.579.2 .176 1943 Unknown [id number] 2.840.1.448794.3.579.2 .176 1943 Unknown [id number] 2.840.1.332810.3.579.2 .1245 1943 Unknown [id number] 2.840.1.982580.3.579.2 .1245 1943 Unknown [id number] 2.840.1.248667.3.579.2 .124 1943 Unknown [id number] 2.840.1.533651.3.579.2 .124 1943 Unknown [id number] 2.840.1.087849.3.579.2 .124 1943 Unknown [id number] 2.840.1.185995.3.579.2 .124 1943 Unknown [id number] 2.840.1.836703.3.579.2 .124 1943 Unknown [id number] 2.16.840.1.934204.3.579.2 .1244 1943 Unknown [id number] 2.840.1.964805.3.579.2 .1259 1943 Unknown [id number] 2.16.840.1.463462.3.579.2 .1259 1943 Unknown [id number] 2.840.1.134425.3.579.2 .1259 1943 Unknown [id number] 2.840.1.777541.3.579.2 .1259 1943 Unknown [id number] 2.840.1.468761.3.579.2 .1259 1943 Unknown [id number] 2.840.1.473730.3.579.2 .1259 1943 Unknown [id number] 2.840.1.210263.3.579.2 .1259 1943 Unknown [id number] 2.840.1.297610.3.579.2 .1259 1943 Unknown [id number] .840.1.899805.3.579.2 .1259 1943 Unknown [id number] .840.1.221500.3.579.2 .727 1943 Unknown [id number] .840.1.574696.3.579.2 .727 1943 Unknown [id number] .840.1.669176.3.579.2 .727 1943 Unknown [id number] 2.840.1.153074.3.579.2 .727 1943 Unknown [id number] 2.840.1.613585.3.579.2 .727 1943 Unknown [id number] 2.840.1.571012.3.579.2 .727 1944 Unknown [id number] 2.16.840.1.310013.3.579.2 .727 1943 Unknown [id number] 2.16.840.1.096988.3.579.2 .727 1943 Unknown [id number] 2.16.840.1.915173.3.579.2 .727 Medicare Medicare Nonpatient [id number] Unknown Unknown MMO [id number] Unknown [id number] 2.16.840.1.467141.3.579.2 .531 Unknown [id number] 2.16.840.1.486846.3.579.2 .531 Unknown [id number] 2.16.840.1.459883.3.579.2 .531 Unknown [id number] 2.16.840.1.750763.3.579.2 .531 Unknown [id number] 2.16.840.1.466464.3.579.2 .531 Unknown [id number] 2.16.840.1.249218.3.579.2 .531 Unknown [id number] 2.16.840.1.557860.3.579.2 .531 Unknown [id number] 2.16.840.1.182054.3.579.2 .531 Unknown [id number] 2.16.840.1.082386.3.579.2 .531 Unknown [id number] 2.16.840.1.008616.3.579.2 .531 Social History Date Type Detail Facility Start: 12-31-2023 End: 02-10-2024 Daily caffeine consumption Daily caffeine consumption -[facility] [address] DO Work Phone: Comment on above: 3-4 cups coffee kellen y; 05/17/23 quit; 1/2 dozen cigarettes ; Start: 06-11-2022 End: 11-16-2024 Tobacco smoking status Heavy tobacco smoker (finding) [facility] Eva Start: 12-31-2023 End: 02-10-2024 Sex Assigned At Male [facility] Start: 12-31-1965 End: 01-23-2024 Tobacco smoking status NHIS Smoker (finding) [facility] Start: 1945 Sex Assigned At Male [facility] [place] Start: 07-02-2022 End: 01-29-2024 Tobacco smoking status NHIS Ex-smoker (finding) [facility] Tobacco smoking status Never [facility] Dominic Start: 12-31-1965 History of tobacco use Cigarette Smo ker [facility] Work Phone: Start: 01-29-2024 End: 02-10-2024 Tobacco use and exposure Smokeless tobacco non-user [facility] Work Phone: Start: 02-24-2024 End: 11-09-2024 Alcoholic beverage intake Lifetime non-drinker (finding) [facility] Work Phone: Start: 1945 [facility] assigned at [facility]: Start: 01-31-2024 End: 10-08-2024 Exposure to SARS-CoV-2 (event) Not sure [facility] Within the last year , have you [...] Start: 12-22-2009 End: 08-11-2024 Sex Male (finding) [facility] How often do you nee d to have someone help you when you read instructions, pamphlets, or other written material from your doctor or pharmacy [SILS] Always [facility] Sexual Orientation [facility] Dominic Do you feel stress - tense, restless, nervous, or anxious, or unable to sleep at night because your mind is troubled all the time - these days [OSQ] Only a little [facility] Medical Equipment Procedure Code Equipment Code Equipment Origin al Text Equipment Identifier Dates Percutaneous endovascular repair of abdominal aortic aneurysm (AAA) Abdominal aorta endovascular stent-graft ()[id number] FDA Start: 07-02-2022 Percutaneous endovascular repair of abdominal aortic aneurysm (AAA) Abdominal aorta endovascular stent-graft ()[id number] FDA Start: 07-02-2022 Percutaneous endovascular repair of abdominal aortic aneurysm (AAA) Abdominal aorta endovascular stent-graft ()[id number] FDA Start: 07-02-2022 Percutaneous endovascular repair of abdominal aortic aneurysm (AAA) Soft-tissue/mesh anchor, non-bioabsorbable ()[id number] FDA Start: 07-02-2022 CL STENT JERZY FRONTIER [...] 01-16-2024 Multiple periphe ral artery stent, bare-metal ()[id number] FDA Start: 10-11-2024 Multiple periphe ral artery stent, bare-metal ()[id number] FDA Start: 10-11-2024 Goals Date Patient Goal Desired Activity /State Functional Status Date Assessment Result Facility 07-15-2024 Functional Status N/A [facility] 04-06-2024 Functional Status N/A [facility] 01-23-2024 Functional status Patient at Baseline [facility] Work Phone: 10-03-2023 Functional Status N/A [facility] 06-30-2023 Functional Status N/A [facility] 06-10-2023 Functional Status N/A [facility] 03-11-2023 Functional Status N/A [facility] 12-10-2022 Functional Status N/A [facility] 09-18-2022 Functional Status N/A [facility] 07-31-2022 Functional Status N/A [facility] 07-03-2022 Functional status Patient at Baseline [facility] Work Phone: 06-11-2022 Functional Status N/A [facility] 05-16-2022 Functional status Patient Not at Baseline [facility] Work Phone: Mental Status Date Assessment Result Facility 01-23-2024 Cognitive function Cognitive Sta tus Patient is Progressing Toward Baseline [facility] Work Phone: 07-03-2022 Cognitive function Cognitive Sta tus Patient at Baseline [facility] Work Phone: 05-16-2022 Cognitive function Cognitive Sta tus Patient at Baseline [facility] Work Phone: Clinical Notes 06-04-2022 to [...] provider. Document Revised: 08/01/2021 Document Reviewed: 04/27/2021 [employer] Patient Education 2021 jaeyos. 11/16/2024 14:35:49 Cancer Screening for Males Cancer [...] if anything looks unusual. Males with a oanclx-pseo-iikdgr risk for skin cancer may want to see a skin tanner (drycleaner) for an annual body check. Where to find more information [place] [employer] Cancer [employer]: cancer.org Centers for Disease Control and Prevention: cdc.gov National Cancer [place]: cancer.gov Contact a health care provider if: [...] provider. Document Revised: 05/20/2023 Document Reviewed: 12/02/2022 [employer] Patient Education 2023 jaeyos. Follow Up Care 10/26/2024 10:10:17 With:ARLENE CASILLAS, Katia Hall, URL Address: [facility] [address] [place] [address]- When: Unknown [facility] 11-16-2024 Note Patient Education Oncology Cancer Screening [...] if anything looks unusual. Males with a mjgusb-ptrk-vaizpk risk for skin cancer may want to see a skin tanner (dermatologi (more content not included)... [facility] 11-09-2024 History of Present illness Narrative [...] He had a rx of seraquil from [facility] and she put him back on that. [...] exacerbation. We discussed and she has a jtee-bso-qbfvflp hydrocortisone cream at home. For now I [...] at bedtime documented in this encounter [facility] 10-14-2024 History of Present illness Narrative Images from the original note were not included. Patient ID: Alex Anderson is a 78 y.o. male who presents for: Flowsheet Row Patient Outreach from 10/06/2024 in [facility] with Joi [facility] Information ED, Hospital or Custodial Facility Discharge? Hospital Patient has been contacted within two business days of discharge Yes Diagnosis Community acquired pneumonia of lower lobe of lung , Lower extremity edema Edema, Delirium due to another medical condition Discharge Date 10/05/24 Discharged To: Home Setting Discharge Hospital [facility] Engagement Call Start Time 1207 Admission [...] have any upcoming specialty appointments? Yes [10/08 [employer], 10/11 outpatient surgery for aortic aneuysm left knee] Self Management Does patient have home health? yes What is the home health agency? [facility] Has home health visited the patient [...] in ER and Hospital. Pt arrived to [facility] ER d/t [facility] crisis line stating to go because of pts increased delusions, hallucinations, and suicidal ideation. found pocket knife on pt as well. Pt transferred to [facility]. Pt positive for metapneumovirus, Urine cultures [...] transition of care note is reviewed. a icsy-rg-pyxj evaluation is done today. Medical decision making is complex in degree. 3. Lower extremity edema Chronic problem, stable, we will monitor at this time. 4. Delirium due to another medical condition Chronic problem that is currently stable and manageable. It was worse when he was acutely ill. No further adjustments. documented in this encounter [facility] 10-13-2024 History of Present illness Narrative Reviewed the procedure note. Updated the medical record. documented in this encounter [facility] 10-08-2024 History of Present illness Narrative Patient ID: Alex Anderson is a 78 [...] future interventions. Family holds healthcare power of assistant attorney general. DNR status temporarily revoked during procedure. Follow-up [...] I discussed arrhythmia, ECG, shared decision making, [place] decision tool, informed consent, treatment options, risk, [...] OF DR. RUBY MONTANA MD, FACC, FACP, [facility] I, , personally performed the services described [...] DNR and POA forms, shared decision making, [place] decision tool, and informed consent [1] Social History Socioeconomic History Marital status: Tobacco Use Smoking status: Former Types: Cigarettes Smokeless tobacco: Never Substance and Sexual Activity Alcohol use: Never Drug use: Never Social Drivers of Health Financial Resource Strain: Low Risk (12/31/2023) Received from [facility] Overall Financial Resource Strain (CARDIA) Difficulty of Paying Living Expenses: Not hard at all Food Insecurity: Patient Unable To Answer (10/02/2024) Received from [facility] Hunger Vital Sign Worried About Running Out of Food in the Last Year: Patient unable to answer Ran Out of Food in the Last Year: Patient unable to answer Transportation Needs: Patient Unable To Answer (10/02/2024) Received from [facility] PRAPARE - Transportation Lack of Transportation (Medical): Patient unable to answer Lack of Transportation (Non-Medical): Patient unable to answer Physical Activity: Inactive (12/31/2023) Received from [facility] Exercise Vital Sign Days of Exercise per Week: 0 days Minutes of Exercise per Session: 0 min Stress: Stress Concern Present (12/31/2023) Received from [facility] [place] of Occupational Health - Occupational Stress Questionnaire Feeling of Stress : To some extent Social Connections: Moderately Isolated (12/31/2023) Received from [facility] Social Connection and Isolation Panel [NHANES] Frequency of Communication with Friends and Family: More than three times a week Frequency of Social Gatherings with Friends and Family: More than three times a week Attends Denominational Services: Never Active Member of Clubs or Organizations: No Attends Club or Organization Meetings: Never Marital Status: Intimate Partner Violence: Not At Risk (12/31/2023) Received from [facility] Humiliation, Afraid, Rape, and Kick questionnaire Fear of Current or Ex-Partner: No Emotionally Abused: No Physically Abused: No Sexually Abused: No Housing Stability: Patient Unable To Answer (10/02/2024) Received from [facility] Housing Stability Vital Sign Unable to Pay for Housing in the Last Year: Patient unable to answer Homeless in the Last Year: Patient unable to answer [2] Family History Problem Relation Name Age of Onset Other (bowel obstruction) Mother Brain cancer Father documented in this encounter [facility] Work Phone: 10-08-2024 Instructions Sy Lombardo LPN - 10/08/2024 3:00 PM EDT Images from the original note were not included. Vascular surgery needs to tell us when he can come off Plavix, and for how long. Please call us as soon as you have this answer, , option #4. Pre-Procedure Patient Information You have been scheduled for: EV- ICD Implant At: [facility] With: Dr. [place] and Dr. Capone Date [...] day before your scheduled procedure, please call [phone]. 3. Please bring a current list of [...] any questions, please contact the office at [phone]. Follow up 1 week after for a wound care check appointment documented in this encounter [facility] Work Phone: 10-05-2024 History of Present illness Narrative AVS reviewed with and patient. All questions answered. Leg bag attached to villarreal. IV removed, no complications. Waiting for meds to bed to be delivered. [facility] PROGRESS NOTE 10/05/2024 9:55 AM Name: Alex Anderson Acct: [id number] Room: IP Day: 3 Admit Date: 10/02/2024 [...] are in and will be reviewed from [place]. Brief History: 78 yo male admitted to [...] COPD, anemia, AAA post stent, hypothyroidism. Per [facility] records patient was brought in to [place] ED by due to increasing delusions, hallucinations [...] screening positive for tricyclic antidepressant. Transferred to [facility] for psychiatric assessment and potentially [facility] admission following medical clearance. On admit, patient is ANO x 2, knows his name date, birthday, president. Able to list some family members. Is aware he is in a hospital in [place]. He endorses increasing bilateral lower extremity weakness [...] - dementia versus delirium -Patient transferred from [facility] due to declining mental status and increasing delusions and hallucinations. Per chart review patient's was increasingly concerned for the last 2 weeks he has had more hallucinations and delusions, concerned of people coming to find him. Recently obtained a pocket knife that she is unsure how he got. Per chart review endorsed some suicidal ideation -CT head in ED [place] 10/01 reviewed no acute intracranial abnormality -UDS 10/01 [place] positive for tricyclic's -On admit patient denies [...] frequency with urination - In ED at [place], urinalysis small leukocyte esterase moderate bacteria 10/01; BUN 26 creatinine 2.01 -> creatinine 1.9 -[place] urine culture received 10/05. Positive for Klebsiella [...] review unsure if it was replaced at [place] A-fib - Patient had some runs of [...] To be discussed with attending Dr.Grewal Waqar Pink MD 10/05/2024 9:55 AM Attending Physician Statement [...] documented by the resident. Urine culture from [facility] growing Klebsiella and Enterobacter sensitive to Cipro. Chronic Villarreal. Follow-up urology as outpatient. CT head from [place], negative. Varicose veins, vascular surgery follow-up as [...] Daily PT/INR while inpatient. Satish Gallardo PharmD, [facility] 10/05/2024 8:05 AM [facility] OCCUPATIONAL THERAPY MISSED TREATMENT NOTE INPATIENT Date: 10/04/24 Patient Name: Alex Anderson Room: : 1945 (78 y.o.) Gender: male REASON FOR MISSED TREATMENT: 10/04/24 - Other - Palliative Care COVER MARKER in room initially. Checked back at 1430, with pt working with physical therapy. PCT reported needing to get EKG once pt has completed PT. OT will continue to follow and check back as time permits. 1352; 1430 Patient Alert and Oriented x 4, per Jessy CHAN. Bedside regional safety manager removed, Telesitter placed at bedside. Chronic villarreal catheter changed. 20 Fr coude. Department of Psychiatry Consult Service Psychiatric Assessment PROGRESS NOTE REASON FOR CONSULT: dementia, worsening delusions CONSULTING PHYSICIAN: Waqar Pink History obtained from: Patient, EMR, treatment team [...] periodically make illogical statements in response to food writer's assessment questions and thought process was [...] Patient initially presented to the ED from [facility]. He was presented to [facility] for potential admission, but declined as his symptoms were consistent with delirium. Noted he was placed on an application for emergency admission by [place] ED secondary to patient'sbehavior at home. per documentation, [...] like him to see Dr. Mcarthur in [place]. Per review of documentation, patient medications managed [...] psychosocial and environmental stressors PLAN Admission to [facility] is not warranted No medication changes today [...] agree with assessment. The patient was seen dvmq-tj-wnut. The patient is pleasant on approach. He [...] conducted. Follow-up daily while on inpatient unit [facility] PROGRESS NOTE 10/04/2024 9:40 AM Name: Alex Anderson Acct: [id number] Room: Day: 2 Admit Date: 10/02/2024 10:30 [...] COPD, anemia, AAA post stent, hypothyroidism. Per [facility] records patient was brought in to [place] ED by due to increasing delusions, hallucinations [...] screening positive for tricyclic antidepressant. Transferred to [facility] for psychiatric assessment and potentially [facility] admission following medical clearance. On admit, patient is ANO x 2, knows his name date, birthday, president. Able to list some family members. Is aware he is in a hospital in [place]. He endorses increasing bilateral lower extremity weakness [...] - dementia versus delirium -Patient transferred from [facility] due to declining mental status and increasing delusions and hallucinations. Per chart review patient's was increasingly concerned for the last 2 weeks he has had more hallucinations and delusions, concerned of people coming to find him. Recently obtained a pocket knife that she is unsure how he got. Per chart review endorsed some suicidal ideation -CT head in ED [place] 10/01 reviewed no acute intracranial abnormality -U[facility] 10/01 [place] positive for tricyclic's -On admit patient denies [...] frequency with urination - In ED at [place], urinalysis small leukocyte esterase moderate bacteria 10/01; [...] review unsure if it was replaced at [place] A-fib - Patient had some runs of [...] To be discussed with attending Dr.Grewal Waqar Pink MD 10/04/2024 9:40 AM Attending Physician Statement [...] mg Notes: Daily PT/INR while inpatient. Constantin Goodwin PharmD. [facility] 10/04/2024 9:09 AM Department of Psychiatry Consult Service Psychiatric Assessment PROGRESS NOTE REASON FOR CONSULT: dementia, worsening delusions CONSULTING PHYSICIAN: Waqar Pink History obtained from: Patient, EMR, treatment team [...] periodically make illogical statements in response to food writer's assessment questions and thought process was [...] to not meet criteria for admission to [facility] due to delirium and is not experiencing [...] Patient initially presented to the ED from [facility]. He was presented to [facility] for potential admission, but declined as his symptoms were consistent with delirium. Noted he was placed on an application for emergency admission by [place] ED secondary to patient'sbehavior at home. per documentation, [...] like him to see Dr. Mcarthur in [place]. Per review of documentation, patient medications managed [...] psychosocial and environmental stressors PLAN Admission to [facility] is not warranted No medication changes today [...] inherent in voice recognition technology. Physical Therapy [facility] Evaluation Date: 10/03/24 Patient Name: Alex Anderson Room: Account: [id number] : 1945 (78 y.o.) Gender: male Discharge [...] of pneumonia, UTI, altered mental status. Per [facility] records patient was brought in to [place] ED by due to increasing delusions, hallucinations [...] screening positive for tricyclic antidepressant. Transferred to [facility] for psychiatric assessment and potentially [facility] admission following medical clearance. Referral Date : [...] Exercises Exercise Treatment: Pt leatha to perfrom Wilmar FORD seated ex' at EOB with visual demonstration [...] Unable to demonstrate understanding Functional Outcome Measures -[facility] Basic Mobility - Inpatient How much help [...] climbing 3-5 steps with a railing?: Total -[facility] Inpatient Mobility Raw Score : 16 AM-[facility] Inpatient T-Scale Score : 40.78 Mobility Inpatient [...] Minutes: 15 Minutes New consult to Neurology. Watch Dial Printer notifed Moris Barragan MD. Patient potassium is low. Potassium oral 40mEq was given per PRN orders [facility] PROGRESS NOTE 10/03/2024 9:59 AM Name: Alex Anderson Acct: [id number] Room: IP Day: 1 Admit Date: 10/02/2024 10:30 AM [...] COPD, anemia, AAA post stent, hypothyroidism. Per [facility] records patient was brought in to [place] ED by due to increasing delusions, hallucinations [...] screening positive for tricyclic antidepressant. Transferred to [facility] for psychiatric assessment and potentially [facility] admission following medical clearance. On admit, patient is ANO x 2, knows his name date, birthday, president. Able to list some family members. Is aware he is in a hospital in [place]. He endorses increasing bilateral lower extremity weakness [...] for: SPECIAL No results found for: CULTURE @MLHABGPOC@ Radiology: No results found. Physical Examination: [...] - dementia versus delirium -Patient transferred from [facility] due to declining mental status and increasing delusions and hallucinations. Per chart review patient's was increasingly concerned for the last 2 weeks he has had more hallucinations and delusions, concerned of people coming to find him. Recently obtained a pocket knife that she is unsure how he got. Per chart review endorsed some suicidal ideation -CT head in ED [place] 10/01 reviewed no acute intracranial abnormality -UDS 10/01 [place] positive for tricyclic's -On admit patient denies [...] frequency with urination - In ED at [place], urinalysis small leukocyte esterase moderate bacteria 10/01; [...] To be discussed with attending Dr.Grewal Waqar Pink MD 10/03/2024 9:59 AM Attending Physician Statement [...] doppler pending New consult for Palliative Care. Watch Dial Printer notified Heather Alvarez, FARHAT. Pharmacy Note Warfarin [...] mg tonight. Daily PT/INR while inpatient. Aidee Kearns PharmD, [facility] RN attempted to finish patients admission questions, patient was unable to answer. Watch Dial Printer notified Palliative care of new consult placed. Pharmacy Note Warfarin Consult Alex Anderson is a 78 y.o. male for whom pharmacy has been consulted to manage warfarin therapy. Consulting Physician: Dr. Pink Reason for Admission: CAP Warfarin dose prior [...] at 1.9 (goal 2-3). Patient follows with [place] [facility] [facility]. Patient's first time at [facility], sparse documentation in [facility]. Documentation from transferring hospital states patient is on coumadin 2 mg daily. Will schedule coumadin 2 mg tonight, has not received medications since last night. Daily PT/INR while inpatient. Thank you for the consult. Will continue to follow. Aidee Kearns, PharmD, [facility] New consult to Urology. Watch Dial Printer notified Goldy Baptiste MD. New consult to Psychiatry. Watch Dial Printer notified Froy Razo MD. documented in this encounter [facility] 10-05-2024 Hospital Discharge instructions Waqar Pink MD - 10/05/2024 11:40 AM EDT - You were positive for metapneumovirus which was likely because of pneumonia. Pneumonia treatment completed. - Urine cultures came back positive for Klebsiella and Enterobacter cloacae. Please complete antibiotic Bactrim for UTI. - Follow-up with psychiatry and neurology for further psychiatric assessment and cognitive evaluations. Please images of CT head (CD rom and photo on phone) from [facility] with you but it is also uploaded in media in your chart at [facility] - Follow-up with your vascular surgeon [...] Primary Emergency Contact: Estella Anderson Relation: Spouse Deal Architect needed? No Secondary Emergency Contact: Antonio Anderson [...] Assisted Dressing Assisted Toileting Assisted Feeding Independent Network Consultant Assisted Med Delivery whole Wound Care Documentation [...] cane, walker, and bath bench Other Treatments: Custodial assessment and monitoring. Medication education and monitoring per protocol. Patient's personal belongings (please select all that are sent with patient): Glasses RN SIGNATURE: CASE MANAGEMENT/SOCIAL WORK SECTION Inpatient Status Date: 10/02/2024 Readmission Risk Assessment Score: [facility] RISK OF UNPLANNED READMISSION 2.0 13.1 Total Score Discharging to Facility/ [facility] Address: [address] [place] [address] Dialysis Facility (if applicable) Name: Address: Dialysis Schedule: Phone: Fax: Log Yard Derrick Operator/Sisal Picker signature: PHYSICIAN SECTION Prognosis: Fair Condition at [...] PHYSICIAN SIGNATURE: documented in this encounter [facility] 09-21-2024 History of Present illness Narrative Images from the original note were not included. Patient ID: Alex Anderson is a 78 y.o. male who presents for: Pt reported to his [facility] Nurse yesterday that pt has been having issues with increased hallucinations and cognitive impairment. Results were looked up in [facility] and there are no recent UA's done [...] Final Glucose, UA 09/21/2024 Negative Negative - 1999(110) ++++ mg/dL Final Bilirubin, UA 09/21/2024 Negative [...] and nights mixed up and having some symptomatology. Discussing further mostly with his she [...] exercise program. documented in this encounter [facility] 09-10-2024 History of Present illness Narrative Chief [...] Arrangements are going to be made at [facility]. He will be communicated to through the office in the area for the arrangements to be made. His present medical therapy was left unchanged. Assessment/recommendations: 1-history of non-ST elevation myocardial infarction leading to LAD stenting December 2023 at [facility], continue Plavix, high intensity statin, patient is not on aspirin since he is also on Coumadin 2-post MD paroxysmal atrial fibrillation, currently back in sinus [...] is recommended and will be arranged at [facility]. 5- status post AAA stenting with [facility] 2022 with no complications. 6- chronic kidney disease stage IIIb. Patient's follows with nephrology, basic metabolic profile is ordered 7-hyperlipidemia on maximal dose atorvastatin 8- history of TIA, no recurrences 9- slight overweight, encouragement provided for prudent diet and daily activities 10-colon polyp large enough to require surgery, he is refusing follow-up at the [facility] 11- history of bladder cancer followed by [...] tablet daily in the evening. Follow with [facility]. Patient will take coumadin and eliquis together for 3 days only Assessment/Plan 1. Cardiomyopathy, ischemic Referral to Cardiac Electrophysiology Basic Metabolic Panel Basic Metabolic Panel 2. Coronary artery disease involving [place] coronary artery of [place] heart without angina pectoris Basic Metabolic Panel [...] Scribe Attestation By signing my name below, Ruth Almendarez LPN, Scribe attest that this documentation has [...] discussion and plan. documented in this encounter [facility] Work Phone: 09-10-2024 Instructions Ruth Mojica LPN [...] visit as scheduled. documented in this encounter [facility] Work Phone: 08-12-2024 Telephone encounter Note Entered in error [facility] 08-12-2024 Miscellaneous Notes Entered in error documented in this encounter [facility] 08-11-2024 Evaluation note Diagnosis Onset Date Resolution Abdominal aortic aneurysm without rupture acute July 242024 10:25am Anemia acute August 11 10:25am CHF (congestive heart failure) acute August 11, 2024 10:25am Chronic kidney disease, stage 3b acute August 11, 2024 10:25am Hyperlipidemia acute July 10:25am Hypertensive nephropathy acute August 11, 2024 10:25am Iron deficiency acute July 10:25am Obstructive nephropathy acute [facility] 2024 10:25am [facility] Work Phone: 1(209) 767-355103-19-2025 Evaluation note* Diagnosis Onset Date Resolution Status [...] deficiency acute July 10:25am Obstructive nephropathy acute arch 2024 10:25am Aneurysm of left popliteal artery ac [place] September 23, 2024 9:09am [facility] Work Phone: 1(247) 835-360803-19-2025 Evaluation note* Diagnosis Onset Date Resolution Status [...] 10:25am Aneurysm of left popliteal artery ac [place] September 23, 2024 9:09am Abdominal aortic aneurysm [...] 3:51pm Obstructive nephropathy acute J 2024 3:51pm [facility] Work Phone: 1(934) 539-619503-06-2025 History of Present illness Narrative* Teo Al [...] days. He was against going to the [facility] to follow-up on colonic polyp as was suggested by his local tour leader. He reports no syncope or presyncope his [...] leading to LAD stenting December 2023 at [facility], continue Plavix, high intensity statin, patient is not on aspirin since he is also on Coumadin 2-post MD paroxysmal atrial fibrillation, currently back in sinus [...] surgery, he is refusing follow-up at the [facility] 11- history of bladder cancer followed by [...] tablet daily in the evening. Follow [facility]. Patient will take coumadin and eliquis together for 3 days only, Disp: 14 tablet, Rfl: 0 Assessment/Plan 1. Cardiomyopathy, ischemic Follow Up In Cardiology 2. Paroxysmal atrial fibrillation (Multi) 3. High risk medication use 4. Coronary artery disease involving [place] coronary artery of [place] heart without angina pectoris 5. S/P PTCA [...] exam, discussion and plan. documented in this [facility] Work Phone: 1(575) 443-868003-06-2025 Instructions* Patient Instructions* Pebbles Arcos LPN - [...] through Care Everywhere. * Heart Healthy Diet ([place]) documented in this [facility] Work Phone: 1(908) 886-415302-20-2025 Hospital Discharge instructions Patient Education 07/15/2024 14:05:29 [...] cells. Follow these instructions at home: Take mgeo-emb-pmmglxw and prescription medicines only as told by [...] Citizen Cancer Society (ACS): cancer.org National Cancer Edmondson (NCI): cancer.gov Contact a health care provider [...] provider. Document Revised: 04/22/2022 Document Reviewed: 04/22/2022 [employer] Patient Education 2023 [email or web address]. Follow Up Care 06/01/2024 11:03:36 With:JOSSELIN BARR, HEATHER Luu, URL Address: [address] [place] [address] [place] [address] When:Within 1 Month(s) [facility] 02-20-2025 NotePatient Education Oncology Bladder Cancer Bladder [...] Follow these instructions at home: ??? Take ennf-xnj-xabaila and prescription medicines only as told by [...] important. Where to find more information ??? [place] Citizen Cancer Society (ACS): cancer.org ??? National Cancer Edmondson (NCI): cancer.gov Contact a health care provider [...] This information is n (more content not included)...[facility] 06-07-2024 NotePatient Education Urology Hematuria, Adult [...] these instructions at home: Medicines ??? Take cmpw-nmx-xrxbsay and prescription medicines only as told by [...] the blood stops without treatment. ??? Take dbqa-dfa-qeqjpsv and prescription medicines only as told by your health care provider. ??? Drink enough fluid to keep your urine pale yellow. This information is not intended to replace advice given to you by your health care provider. Make sure you discuss any questions you have with your health care provider. Document Revised: 01/10/2021 Document Reviewed: 01/10/2021 [employer] Patient Education ? 2023 [email or web address].[facility] 05-21-2024 History of Present illness Narrative* [...] described. They are considering consultation at the [facility] for large colonic polyp that might [...] leading to LAD stenting December 2023 at [facility], continue Plavix, high intensity statin, patient is not on aspirin since he is also on Coumadin 2-post MD paroxysmal atrial fibrillation, currently back in sinus [...] he is following for that at the [facility]. 11- history of bladder cancer followed [...] tablet daily in the evening. Follow with [facility]. Patient will take coumadin and [...] Stimulating Hormone 3. Coronary artery disease involving [place] coronary artery of [place] heart without angina pectoris 4. S/P PTCA [...] exam, discussion and plan. documented in this [facility] Work Phone: 1(157) 571-389012-27-2024 Instructions* Patient Instructions* Pebbles Arcos LPN - [...] through Care Everywhere. * Heart Healthy Diet ([place]) documented in this [facility] Work Phone: 1(891) 107-134712-19-2024 History of Present illness Narrative* Stanley Emerson [...] Do you have a medical power of assistant attorney general?: No Objective : BP 122/74 Pulse 77 [...] through a living will, durable power of assistant attorney general for healthcare, or other advanced directives. We [...] May 29, 2024 [id number] History of Present illness Narrative* Stanley Emerson [...] encourage good nutrition. [facility] [id number] Hospital Discharge instructions Patient Education 04/06/2024 11:31:42 [...] provider. Document Revised: 08/01/2021 Document Reviewed: 04/27/2021 [employer] Patient Education 2021 [email or web address]. 04/06/2024 11:28:52 Cancer Screening for Males Cancer [...] if anything looks unusual. Males with a kkmuyq-vtzc-oomgwn risk for skin cancer may want to see a skin tanner (drycleaner) for an annual body check. Where to find more information [place] Citizen Cancer Society: cancer.org Centers for Disease Control and Prevention: cdc.gov National Cancer Edmondson: cancer.gov Contact a health care provider if: [...] provider. Document Revised: 05/20/2023 Document Reviewed: 12/02/2022 [employer] Patient Education 2023 [email or web address]. Follow Up Care 02/25/2024 15:13:08 With:ARLENE CASILLAS, Katia Hall, URL Address: [facility] [address] , [place] [address]- When: Unknown [facility] 11-12-2024 NotePatient Education Oncology Cancer Screening for [...] if anything looks unusual. Males with a mcxtgr-dglo-cpujla risk for skin cancer may want to see a skin tanner (dermatologi (more content not included)...[facility]10-24-2024 History of Present illness Narrative* Stanley [...] evaluation or treatment. documented in this encounterSaint [facility] [id number] History of Present illness Narrative* Leanne Soriano [...] m (6' 2 ) [facility] Phone: 1(734) 310-424209-24-2024 History of Present illness Narrative* Stanley Emerson [...] each; Refill: 0 documented in this encounterSaint [facility] CenterRksfdhqwmc23-50-4592 History of Present illness Narrative* Teo Al MD - 02/10/2024 9:20 AM EDT Subjective Alex Anderson is a 78 y.o. male Chief Complaint Hospital Follow-up HPI 78-year-old white male who recent underwent LAD stenting for anterior STEMI at [facility] by Dr. Pruett. He subsequently developed [...] leading to LAD stenting December 2023 at [facility], continue Brilinta, high intensity statin, patient is not on aspirin since he is also on Eliquis 2-post MD paroxysmal atrial fibrillation, currently back in sinus [...] medication use 3. Coronary artery disease involving [place] coronary artery of [place] heart without angina pectoris 4. S/P PTCA [...] exam, discussion and plan. [facility] Work Phone: 1(616) 407-851609-17-2024 Instructions* Patient Instructions* Pebbles Arcos LPN - [...] through Care Everywhere. * Heart Healthy Diet ([place]) documented in [facility] Work Phone: 1(251) 417-742208-30-2024 Consult note Author Rogelio Rai [facility] January 23, 2024 12:43pm Note Date/Time January 23, 2024 12 :29pm [facility] [address] [place] [address] Physiatry (Rehab) Consult Note Signed Patient: Alex Anderson MR#: [id number] : 1945 Acct:[id number] Age/Sex: 78 / M Adm Date: 4 Loc: Room: 9Z7000-3 Type: ADM IN Attending Dr: Nas Pruett [...] post mid LAD stenting for ST elevation MD (01/15) course complicated by hypotension, atrial fibrillation, [...] Son Family history of mental disorder [facility] Problem: Diagnosed with Mental Illness Social History [...] Appearance Clear Urine pH 5.5 Ur Specific [place] 1.022 Urine Protein Trace H Urine Glucose [...] post mid LAD stenting for ST elevation MD (01/15) course complicated by hypotension, atrial fibrillation, [...] would recommend SNF closer to home in [place]. I understand this may be a discrepancy [...] chart, including current orders, allied health and hospice care consultant notes, labs/imaging and performed diaz elements of exam and I formulated the plan of care and facilitated the medical decision making. I completed a substantive portion of this encounter, the medical decision making portion of this note in its entirety, including Allied health note review, nursing note review, hospice care consultant note review, discussion with nursing and case management, and more than 50% of my time was spent on counseling and coordination of care, time spent 40 minutes Documented By: Roeglio Rai MD 01/23/24 1207 Signed By: <Electronically signed by Rogelio Rai MD> 01/23/24 1243 [facility] Work Phone: 1(415) 901-555908-30-2024 Progress note Author Isaac Edwards [facility] January 23, 2024 12:01pm Note Date/Time January 23, 2024 11 :59am [facility] [address] [place] [address] Progress Note Signed Patient: Alex Anderson MR#: [id number] : 1945 Acct:[id number] Age/Sex: 78 / M Adm Date: 4 Loc: Room: [address] [place] [address] Type: ADM IN Attending Dr: Nas Pruett [...] signed by MD Isaac Edwards> 01/23/24 1201 [facility] Work Phone: 1(205) 254-536608-30-2024 Consult note Author Rob Almazan [facility] January 23, 2024 3:21pm Note Date/Time January 23, 2024 8: 34am [facility] [address] [place] [address] Hospitalist Consult Note Signed Patient: Alex Anderson MR#: [id number] : 1945 Acct:[id number] Age/Sex: 78 / M Adm Date: 4 Loc: Room: [address] [place] [address] Type: ADM IN Attending Dr: Nas Pruett DO Copies to: MD Rob Richards MD W Scott Sheldon, ~ HPI DATE OF CONSULTATION: 01/23/24 REQUESTING PROVIDER: [...] of Phys. EHR Cmte Folic acid deficiency own Tobacco abuse quit april of 2023 Problem [...] % (Auto) 64.3, Lymph % (Auto) 15.6, [place] % (Auto) 16.0, Eos % (Auto) 3.6, Baso % (Auto) 0.5, Nucleat RBC Rel Count 0.1, Neut # (Auto) 5.7, Lymph # (Auto) 1.4, [place] # (Auto) 1.4 H, Eos # (Auto) [...] <Electronically signed by Rob Almazan MD> 01/23/24 1522 [facility] Work Phone: 1(184) 147-352808-30-2024 Progress note Author Jakob Lomax [facility] January 23, 2024 12:26am Note Date/Time January 23, 2024 12 :26am [facility] [address] [place] [address] Progress Note Signed Patient: Alex Anderson MR#: [id number] : 1945 Acct:[id number] Age/Sex: 78 / M Adm Date: 4 Loc: Room: [address] [place] [address] Type: ADM IN Attending Dr: Nas Pruett DO Copies to: ~ Date of Service: 01/22/2024 Progress Narrative Note PROGRESS NOTE Progress Note: Patient had a security alert called earlier this evening after getting aggressive with PCT, I responded to the security alert and received full report from bedside and supercharger repair supervisor regarding the events. patient did fall but [...] will plan to use Haldol 5mg IM, supercharger repair supervisor aware to notify me if needed. Formal consult to come tomorrow Documented By: Jakob Lomax DO 01/23/24 002 Signed By: <Electronically signed by Jakob Lomax DO> 01/23/24 0026 [facility] Work Phone: 1(391) 221-885508-29-2024 Progress note Author Teo Al [facility] January 22, 2024 2:01pm Note Date/Time January 22, 2024 2: 01pm [facility] [address] [place] [address] Cardiology Progress Note Signed Patient: Alex Anderson MR#: [id number] : 1945 Acct:[id number] Age/Sex: 78 / M Adm Date: 4 Loc: Room: [address] [place] [address] Type: ADM IN Attending Dr: Nas Pruett [...] need toby found as the next step. nursing administrator and PT will be consulted Exam Physical [...] heart failure Documented By: Teo Al MD, [facility]ITALQuynh 4 1359 Signed By: <Electronically signed by MD [place] Al> 01/22/24 1401 [facility] Work Phone: 1(554) 569-314208-29-2024 Progress note Author Isaac Edwards [facility] January 22, 2024 1:58pm Note Date/Time January 22, 2024 1: 58pm [facility] [address] [place] [address] Pulmonology Progress Note Signed Patient: Alex Anderson MR#: [id number] : 1945 Acct:[id number] Age/Sex: 78 / M Adm Date: 4 Loc: 4 Room: [address] [place] [address] Type: ADM IN Attending Dr: Nas Pruett DO Copies to: ~ Date of Service: 01/22/2024 Exam Physical Exam Vital Signs: Temp Pulse Resp BP Pulse Ox O2 Del Method O2 Flow Rate 98.4 F 64 16 98/65 L 96 Room Air 2 01/22/24 11:21 01/22/24 11:21 01/22/24 11:01/22/24 11:01/22/24 11:01/22/24 11:01/19/24 10:00 Const General: cooperative Orientation: [...] peripherally. Documented By: Isaac Edwards MD 4 [id number] Signed By: <Electronically signed by MD Isaac Edwards> 01/22/24 1353 [facility] Work Phone: 1(704) 537-417208-28-2024 Progress note Author Teo Al [facility] January 21, 2024 5:24pm Note Date/Time January 21, 2024 5: 24pm [facility] [address] [place] [address] Cardiology Progress Note Signed Patient: Alex Anderson MR#: [id number] : 1945 Acct:[id number] Age/Sex: 78 / M Adm Date: 4 Loc: Room: [address] [place] [address] Type: ADM IN Attending Dr: Nas Pruett [...] % (Auto) 64.3 Lymph % (Auto) 15.6 [place] % (Auto) 16.0 Eos % (Auto) 3.6 Baso % (Auto) 0.5 Nucleat RBC Rel Count 0.1 Neut # (Auto) 5.7 Lymph # (Auto) 1.4 [place] # (Auto) 1.4 H Eos # (Auto) [...] heart failure Documented By: Teo Al MD, [facility] 1721 Signed By: <Electronically signed by MD NJ Al> 01/21/24 476 [facility] Work Phone: 1(137) 738-382108-28-2024 Progress note Author Isaac Edwards [facility] January 21, 2024 11:45am Note Date/Time January 21, 2024 11 :31am [facility] [address] [place] [address] Pulmonology Progress Note Signed Patient: Alex Anderson MR#: [id number] : 1945 Acct:[id number] Age/Sex: 78 / M Adm Date: 4 Loc: Room: [address] [place] [address] Type: ADM IN Attending Dr: Nas Pruett [...] Signed By: <Electronically signed by MD Isaac Ewdards> 01/21/24 5533 [facility] Work Phone: 1(659) 543-483008-27-2024 Progress note Author Teo Al [facility] January 20, 2024 3:58pm Note Date/Time January 20, 2024 3: 58pm [facility] [address] [place] [address] Cardiology Progress Note Signed Patient: Alex Anderson MR#: [id number] : 1945 Acct:[id number] Age/Sex: 78 / M Adm Date: 4 Loc: Room: [address] [place] [address] Type: ADM IN Attending Dr: Nas Pruett [...] % (Auto) 71.9 Lymph % (Auto) 11.8 [place] % (Auto) 14.3 Eos % (Auto) 1.7 Baso % (Auto) 0.3 Nucleat RBC Rel Count 0.0 Neut # (Auto) 6.8 Lymph # (Auto) 1.1 [place] # (Auto) 1.4 H Eos # (Auto) [...] heart failure Documented By: Teo Al MD, [facility] 3052 Signed By: <Electronically signed by MD NJ Al> 01/20/24 6031 [facility] Work Phone: 1(975) 182-941708-27-2024 Progress note Author Isaac Edwards [facility] January 20, 2024 12:59pm Note Date/Time January 20, 2024 8: 53am [facility] [address] [place] [address] Pulmonology Progress Note Signed Patient: Alex Anderson MR#: [id number] : 1945 Acct:[id number] Age/Sex: 78 / M Adm Date: 4 Loc: Room: [address] [place] [address] Type: ADM IN Attending Dr: Nas Pruett [...] <Electronically signed by MD Isaac Edwards> 01/20/24 2473 [facility] Work Phone: 1(775) 956-502908-26-2024 Progress note Author Isaac Edwards [facility] January 19, 2024 1:20pm Note Date/Time January 19, 2024 9: 06am [facility] [address] [place] [address] Pulmonology Progress Note Signed with Addenda Patient: Alex Anderson MR#: [id number] : 1945 Acct:[id number] Age/Sex: 78 / M Adm Date: 4 Loc: Room: [id number] Type: ADM IN Attending Dr: Nas Pruett [...] signed by MD Isaac Edwards> 01/19/24 1219 [facility] Work Phone: 1(325) 956-599208-26-2024 Progress note Author Teo Al [facility] January 19, 2024 12:11pm Note Date/Time January 19, 2024 12 :11pm [facility] [address] [place] [address] Cardiology Progress Note Signed Patient: Alex Anderson MR#: [id number] : 1945 Acct:[id number] Age/Sex: 78 / M Adm Date: 4 Loc: Room: [address] [place] [address] Type: ADM IN Attending Dr: Nas Pruett [...] 96 Room Air 2 01/19/24 04:00 01/19/24 11:01/19/24 11:01/19/24 11:01/19/24 11:01/19/24 11:01/19/24 10:00 Const General: cooperative, comfortable and [...] % (Auto) 78.5 Lymph % (Auto) 8.8 [place] % (Auto) 11.9 Eos % (Auto) 0.4 Baso % (Auto) 0.4 Nucleat RBC Rel Count 0.1 Neut # (Auto) 8.6 H Lymph # (Auto) 1.0 [place] # (Auto) 1.3 H Eos # (Auto) [...] heart failure Documented By: Teo Al MD, [facility] 4 1206 Signed By: <Electronically signed by MD [place] Al> 01/19/24 1211 [facility] Work Phone: 1(442) 303-487308-25-2024 Progress note Author Justina Lara [facility] January 18, 2024 3:10pm Note Date/Time January 18, 2024 3: 10pm [facility] [address] [place] [address] Pulmonology Progress Note Signed Patient: Alex Anderson MR#: [id number] : 1945 Acct:[id number] Age/Sex: 78 / M Adm Date: 4 Loc: Room: [address] [place] [address] Type: ADM IN Attending Dr: Nas Pruett [...] managing post PCI/stent in LAD for acute MD. He is on beta- maldonado, antiplatelets, statin, [...] following Documented By: Justina Lara MD 01/18/24 150 Signed By: <Electronically signed by Justina Lara MD> 01/18/24 0537 [facility] Work Phone: 1(495) 806-298308-25-2024 Progress note Author Ana Castro [facility] January 18, 2024 12:49pm Note Date/Time January 18, 2024 12 :50pm [facility] [address] [place] [address] Cardiology Progress Note Signed Patient: Alex Anderson MR#: [id number] : 1945 Acct:[id number] Age/Sex: 78 / M Adm Date: 4 Loc: Room: [address] [place] [address] Type: ADM IN Attending Dr: Nas Pruett [...] MPV Neut % (Auto) Lymph % (Auto) [place] % (Auto) Eos % (Auto) Baso % (Auto) Nucleat RBC Rel Count Neut # (Auto) Lymph # (Auto) [place] # (Auto) Eos # (Auto) Baso # (Auto) PHA Creatinine Clear Sodium Potassium Chloride Carbon Dioxide Anion Gap BUN Creatinine Est GFR (CKD-EPI) Glucose POC Glucose 115 126 Calcium Urine Color Light-yellow Urine Appearance Cloudy A Urine pH 6.0 Ur Specific [place] 1.018 Urine Protein Trace H Urine Glucose [...] % (Auto) 75.1 Lymph % (Auto) 11.5 [place] % (Auto) 12.8 Eos % (Auto) 0.2 Baso % (Auto) 0.4 Nucleat RBC Rel Count 0.0 Neut # (Auto) 9.1 H Lymph # (Auto) 1.4 [place] # (Auto) 1.5 H Eos # (Auto) 0.0 Baso # (Auto) 0.0 PHA Creatinine Clear 46.65 Sodium 136 Potassium 3.7 Chloride 107 Carbon Dioxide 21.2 Anion Gap 11.5 BUN 29 H Creatinine 1.59 H Est GFR (CKD-EPI) 43.613 Glucose 125 H POC Glucose Calcium 8.7 Urine Color Urine Appearance Urine pH Ur Specific [place] Urine Protein Urine Glucose (UA) Urine Ketones [...] <Electronically signed by MD Ana Castro> 01/18/24 [facility] Work Phone: 1(539) 292-396408-24-2024 Progress note Author Ana Castro [facility] January 17, 2024 12:43pm Note Date/Time January 17, 2024 12 :43pm [facility] [address] [place] [address] Cardiology Progress Note Signed Patient: Alex Anderson MR#: [id number] : 1945 Acct:[id number] Age/Sex: 78 / M Adm Date: 4 Loc: Room: [id number] Type: ADM IN Attending Dr: Nas Pruett [...] MPV Neut % (Auto) Lymph % (Auto) [place] % (Auto) Eos % (Auto) Baso % (Auto) Nucleat RBC Rel Count Neut # (Auto) Lymph # (Auto) [place] # (Auto) Eos # (Auto) Baso # (Auto) Platelet Estimate Plt Morphology Comment RBC Morphology PHA Creatinine Clear Sodium Potassium Chloride Carbon Dioxide Anion Gap BUN Creatinine Est GFR (CKD-EPI) Glucose POC Glucose POC Glucose Comment Calcium Troponin I High Sens 14087.4 H* 800680.2 H* 117772.4 H* Triglycerides Cholesterol LDL Cholesterol, Calc VLDL Cholesterol HDL Cholesterol Cholesterol/HDL Ratio 01/16/24 01/16/24 01/16/24 18:37 19:15 21:31 Corrected WBC Uncorrected WBC Count RBC Hgb Hct MCV MCH MCHC RDW Plt Count MPV Neut % (Auto) Lymph % (Auto) [place] % (Auto) Eos % (Auto) Baso % (Auto) Nucleat RBC Rel Count Neut # (Auto) Lymph # (Auto) [place] # (Auto) Eos # (Auto) Baso # (Auto) Platelet Estimate Plt Morphology Comment RBC Morphology PHA Creatinine Clear Sodium Potassium Chloride Carbon Dioxide Anion Gap BUN Creatinine Est GFR (CKD-EPI) Glucose POC Glucose 119 118 POC Glucose Comment Glu2: cleaned meter Calcium Troponin I High Sens 98622.2 H* Triglycerides Cholesterol LDL Cholesterol, Calc VLDL Cholesterol HDL Cholesterol Cholesterol/HDL Ratio 01/17/24 01/17/24 01/17/24 04:37 07:14 11:52 Corrected WBC 17.7 H Uncorrected WBC Count 17.7 H RBC 4.46 Hgb 12.7 L Hct 38.4 L MCV 86.1 MCH 28.4 MCHC 33.0 RDW 15.8 H Plt Count 135 L MPV 9.0 Neut % (Auto) 77.1 Lymph % (Auto) 6.9 [place] % (Auto) 15.6 Eos % (Auto) 0.0 Baso % (Auto) 0.4 Nucleat RBC Rel Count 0.0 Neut # (Auto) 13.6 H Lymph # (Auto) 1.2 [place] # (Auto) 2.8 H Eos # (Auto) [...] Comment Calcium 8.9 Troponin I High Sens 84209.6 H* Triglycerides 67 Cholesterol 74 L LDL [...] by MD Ana Castro> 01/17/24 1243 [facility] Work Phone: 1(857) 816-506908-24-2024 Progress note Author Justina Lara [facility] January 17, 2024 11:57am Note Date/Time January 17, 2024 11 :54am [facility] [address] [place] [address] Pulmonology Progress Note Signed Patient: Alex Anderson MR#: [id number] : 1945 Acct:[id number] Age/Sex: 78 / M Adm Date: 4 Loc: Room: [address] [place] [address] Type: ADM IN Attending Dr: Nas Pruett [...] managing post PCI/stent in LAD for acute MD. He is on beta- maldonado, antiplatelets, statin, [...] <Electronically signed by Justina Lara MD> 01/17/24 1154 [facility] Work Phone: 1(800) 980-143708-23-2024 Consult note Author Justina Lara [facility] January 16, 2024 3:19pm Note Date/Time January 16, 2024 3: 16pm [facility] [address] [place] [address] Pulmonology Consult Note Signed Patient: Alex Anderson MR#: [id number] : 1945 Acct:[id number] Age/Sex: 78 / M Adm Date: 4 Loc: Room: [address] [place] [address] Type: REG SDC Attending Dr: Nas Pruett DO Copies to: MD Stanley Cam MD W Scott Sheldon, ~ HPI Date/Time of Consultation: Date of Service: [...] abdominal pain nausea was diagnosed with acute MD and transferred from [facility]. He underwent left heart catheterization and [...] Son Family history of mental disorder [facility] Problem: Diagnosed with Mental Illness Social History [...] managing post PCI/stent in LAD for acute MD. He is on beta- maldonado, antiplatelets, statin, antihypertensive medication per cardiology Monitor creatinine post cath Bronchodilators as needed for COPD Chest x-ray in a.m. DVT prophylaxis Lovenox Documented By: Justina Lara MD 01/16/24 1509 Signed By: <Electronically signed by Justina Lara MD> 01/16/24 1519 [facility] Work Phone: 1(668) 358-441208-23-2024 History and physical note Author Nas Pruett [facility] January 16, 2024 12:53pm Note Date/Time January 16, 2024 12 :45pm [facility] [address] [place] [address] Cardiology H&P Signed Patient: Alex Anderson MR#: [id number] : 1945 Acct:[id number] Age/Sex: 78 / M Adm Date: 4 Loc: Room: [address] [place] [address] Type: [facility] Attending Dr: Nas Pruett DO Copies to: MD Nas Richards, ~ Date of Service: 01/16/2024 Cardiology HPI History of Present Illness Chief complaint: Anterior STEMI HPI: Mr. Anderson is a 78 year old male transferred from [place] with acute anterior ST elevation MD; original phone call taken from outside ER attending at 09:30 AM. Patient arrived in [facility] at 1116, after attempted right femoral [...] of his suspected symptomatology); finally went to [place] ER around 02-01 this morning whereupon he was appropriately he diagnosed, appropriate upstream therapy instituted under my direction after discussion with ER attending, and emergently transferred to [facility] for revascularization. Total 60 minutes nonprocedural critical care time were devoted to the outside ERattending and staff, [facility] staff, nursing staff, patient and family pre and post procedurally Review of Systems Review of Systems All other systems reviewed & are negative unless noted below or in HPI Constitutional Constitutional: Reports as per HPI Cardiovascular Cardiovascular: Reports as per HPI and Reports chest pain at rest ON LICENSE OF [facility] Medical History (Updated 01/16/24 @ 12:52 by Nas Pruett, DO) Villarreal catheter in place BPH (benign [...] Interpretations EKG EKG results cardiology: sinus rhythm MD, pacemaker, normal Myocardial infarction: anterior MD (acute or recent) A&P - Cardiology (1) [...] <Electronically signed by Nas Pruett DO> 01/16/24 1258 [facility] Work Phone: 1(922) 355-756708-23-2024 Procedure [facility]08-23-2024 Procedure [facility]08-21-2024 Procedure [facility]05-10-2024 Hospital Discharge instructions Patient Education 10/03/2023 14:19:12 [...] Follow these instructions at home: Medicines Take flqw-tix-hjdyopf and prescription medicines only as told by [...] provider. Document Revised: 01/31/2021 Document Reviewed: 01/31/2021 [employer] Patient Education 2022 [email or web address]. Follow Up Care 08/15/2023 11:04:15 With:ARLENE CASILLAS, Katia Hall, URL Address: [facility] [address] , [place] [address] [phone] When: Unknown [facility] [place] 02-05-2024 Hospital Discharge instructions Patient Education 06/30/2023 [...] Follow these instructions at home: Medicines Take scbj-gbr-beialew and prescription medicines only as told by [...] provider. Document Revised: 01/31/2021 Document Reviewed: 01/31/2021 [employer] Patient Education 2022 [email or web address]. Follow Up Care 05/06/2023 11:11:29 With:ARLENE CASILLAS, Katia Hall, URL Address: [facility] [address], [place] [address] [phone] When: Unknown Comments:1 day for catheter removal [facility] 01-16-2024 Hospital Discharge instructions Patient Education [...] cotton underwear to absorb moisture and keep calf skinner. 6. Keep the drainage bag below [...] With:Katia JACOBS Address: [facility] [address] [place] [address]- Business (1) When:06/24/2023 15:15:55 Comments:for villarreal removal [facility]12-12-2023 Evaluation note* Encounter Date Diagnosis Assessment Notes Treatment Notes Treatment Clinical Notes Apr, Primary hypertension (ICD-10 - I10) [facility] [employer] Other [id number] Evaluation note* Encounter Date Diagnosis Assessment Notes [...] supplement. I asked the patient to continue vnro-cog-vvdvzmk iron supplement once or twice daily Mar, Primary hypertension (ICD-10 - I10) BP is elevated. Will start Norvasc 5 mg PO daily. i asked the patient to monitor Bp closely with tapering steroid dose [employer] [facility] Other [id number] Hospital Discharge instructions Patient Education 03/11/2023 14:32:06 [...] including vitamins, herbs, eye drops, creams, and lqrb-vhu-myjeczt medicines. Any problems you or family members [...] provider tells you to take them. Taking byzt-icn-bywqdaj medicines, vitamins, herbs, and supplements. Surgery safety [...] provider. Document Revised: 02/05/2022 Document Reviewed: 02/05/2022 [employer] Patient Education 2022 [email or web address]. 03/11/2023 14:15:06 Benign Prostatic Hyperplasia Benign Prostatic [...] urethra. Follow these instructions at home: Take itzn-gfx-pwflghn and prescription medicines only as told by [...] provider. Document Revised: 11/28/2021 Document Reviewed: 11/28/2021 [employer] Patient Education 2022 [email or web address]. Follow Up Care 02/07/2023 16:01:50 With:ARLENE CASILLAS, Katia Hall, URL Address: [facility] [address] , [place] [address]- When:Within 3 Month(s) Comments:Sched cysto/FISH/Cytol/BT check [facility] 10-17-2023 Evaluation + Plan note Diagnostic Tests Pending * [facility]ro[facility]ion Fish and Urine Cyto ([facility]) 03/11/23 [facility]07-18-2023 Evaluation + Plan note Diagnostic Tests Pending * UroVysion Fish and Urine Cyto ([facility]) 12/10/22 [facility]07-18-2023 Hospital Discharge instructions Patient Education [...] if anything looks unusual. Men with a zruxsg-oilz-rypinb risk for skin cancer may want to see a skin tanner (drycleaner) for an annual body check. What are [...] Disease Control and Prevention: www.cdc.gov National Cancer [place]: www.cancer.gov Contact a health care provider if: [...] provider. Document Revised: 10/08/2021 Document Reviewed: 04/07/2020 [employer] Patient Education 2022 [email or web address]. Follow Up Care 11/15/2022 14:27:10 With:ARLENE CASILLAS, Katia Hall, URL Address: [facility] [address] , [place] [address]- When: Unknown [facility] 04-26-2023 Hospital Discharge instructions Patient Education [...] cells. Follow these instructions at home: Take cite-cly-drwgioj and prescription medicines only as told by [...] Citizen Cancer Society (ACS): cancer.org National Cancer Edmondson (NCI): cancer.gov Contact a health care provider [...] provider. Document Revised: 04/22/2022 Document Reviewed: 04/22/2022 [employer] Patient Education 2022 [email or web address]. Follow Up Care 08/26/2022 14:12:46 With:ARLENE CASILLAS, Katia Hall, URL Address: [facility] [address] , [place] [address]- When: Unknown [facility] 04-10-2023 NoteEXAM: XR CHEST 2 V HISTORY: Pre-surgery evaluation COMPARISON: None. TECHNIQUE: PA and lateral views of the chest. FINDINGS: The cardiomediastinal silhouette is normal. No focal consolidation is identified. There is no pneumothorax. No pleural effusion is noted. The osseous structures are intact. IMPRESSION: No acute cardiopulmonary process. Electronically authenticated by: CORKY FORD Date: 2022-09-02 14:17[facility]03-29-2023 Evaluation note* Encounter Date Diagnosis Assessment Notes [...] have his bladder tumor removal as scheduled. [employer] [facility] Other 03-08-2023 Evaluation + Plan note Diagnostic Tests Pending * UroVysion Fish and Urine Cyto ([facility]) 07/31/22 [facility] 03-08-2023 Hospital Discharge instructions Patient Education [...] including vitamins, herbs, eye drops, creams, and qxcn-utq-suucwlt medicines. Any problems you or family members [...] provider tells you to take them. Taking satj-alg-pkxpvwa medicines, vitamins, herbs, and supplements. Tests You [...] 03/08/2010 Document Revised: 12/11/2018 Document Reviewed: 12/11/2018 [employer] Patient Education 2020 [email or web address]. Follow Up Care 07/25/2022 10:56:51 With:ARLENE CASILLAS, Katia Hall, URL Address: [facility] [address] [place] [address]- When: Unknown [facility] [...] some bladder issues. I did call the [employer]. The device is compatible up to 3 Maggi for MRI. I explained this to the family and the patient. Jul, Other specified postprocedural states (ICD-10 - Z98.890) Jul, Personal history of other diseases of the circulatory system (ICD-10 - Z86.79) [facility] Other [facility]01-25-2023 Evaluation note* Encounter Date Diagnosis Assessment Notes [...] plan to do this percutaneously under MAC. [employer] Other 01-17-2023 Hospital Discharge instructions Patient Education [...] including vitamins, herbs, eye drops, creams, and tfdw-peo-umedlmf medicines. Any problems you or family members [...] provider tells you to take them. ?Taking watf-xpb-ocgpcnj medicines, vitamins, herbs, and supplements. Follow instructions [...] Follow these instructions at home: Medicines Take hcpd-lvr-mimqdgv and prescription medicines only as told by [...] 05/09/2001 Document Revised: 05/04/2019 Document Reviewed: 05/04/2019 [employer] Patient Education 2020 [email or web address]. Follow Up Care 05/22/2022 13:37:28 With:[facility] Address: [address] 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 [employer] Other 01-10-2023 Evaluation note* Encounter Date Diagnosis [...] (ICD-10 - E78.5) Patient is on statin [employer] Other Discharge summary Author Teo Al [facility] January 23, 2024 3:52pm Note Date/Time January 23, 2024 3: 52pm [facility] [address] [place] [address] Discharge Summary Signed Patient: Alex Anderson MR#: [id number] : 1945 Acct:[id number] Age/Sex: 78 / M Adm Date: 4 Loc: Room: [address] [place] [address]: Nas rPuett DO Copies to: MD Teo Richards MD, [facility] W Dariusz Pruett, DO~ Providers Date of Discharge: 01/23/24 Discharging [...] Consult to Physiatry Routine Comment: Consulting Provider: [facility] - Phys Med - Rehab [...] Course Hospital course: Patient was transferred from [facility] emergency department with anterior ST elevation myocardial infarction and was taken straight to the [facility] by Dr. Pruett and underwent urgent [...] doctor or pharmacist, without first calling the programming manager who implanted the stent. If you require [...] weight lifting, stair steppers, etc. until the programming manager approves these activities. Check with the programming manager on your first follow-up visit. CALL YOUR SCHOOL COUNSELOR: -If bleeding should occur from the catheter insertion site- apply pressure to the site then immediately call us. -Report any fever, redness, drainage, increased swelling, or firmness at the catheter insertion site. Some bruising or slight swelling may be present at thetime of discharge. -Should arm or leg become cold, numb, white, or blue, contact the programming manager immediately. -IF you should experience episodes of [...] Cardiopulmonary Rehabilitation program is recommended. The attending programming manager or a nurse clinician should provide you with specificinstructions regarding activity, diet, medications, and further follow up for you. Follow the medication instructions provided on your discharge. If the dosages and instructions on this sheet differ from the dosage and instructions on the bottle, follow the instructions on the bottle. [facility] is not responsible for incorrect prescription [...] Appearance Clear, Urine pH 5.5, Ur Specific [place] 1.022, Urine Protein Trace H, Urine Glucose (UA) Normal, Urine Ketones Negative, Urine Occult Blood 2+ H, Urine Nitrite Negative, Urine Bilirubin Negative, Urine Urobilinogen 2 H, Ur Leukocyte Esterase 4+ H, Urine RBC 20-49 H, Urine WBC 20-49 H, Urine WBC Clumps Rare H, Ur Squamous Epith CellsN/A, Urine Bacteria Rare, Hyaline Casts None, Urine Mucus Rare Documented By: Teo Al MD, [facility] 4 1548 Signed By: <Electronically signed by [facility]PITALQuynh Al> 01/23/24 1552 [facility] Work Phone: Evaluation + Plan note No data available for this section [facility] evaluation + Plan note Future Appointments Appointment Date:10/04/2022 10:00:00 AM Scheduled Provider: Location:[facility] Appointment Type:URO Nurse Visit [facility] Evaluation + Plan note Future Appointments Appointment Date:06/16/2023 10:00:00 AM Scheduled Provider: Location:[facility] Appointment Type:URO Nurse Visit Appointment Date:06/30/2023 01:30:00 PM Scheduled Provider:Katia JACOBS MD Location:[facility] Appointment Type:URO Office Visit Diagnostic Tests Pending * Uro[facility]ysion Fish and Urine Cyto ([facility]) 06[facility]10/23 [facility] Future Appointments Appointment Date:06/30/2023 01:30:00 PM Scheduled Provider:Katia JACOBS MD Location:[facility] Appointment Type:URO Office Visit [facility] evaluation + Plan note Future Appointments Appointment Date:07/01/2023 08:30:00 AM Scheduled Provider: Location:[facility] Appointment Type:URO Nurse Visit [facility] evaluation + Plan note Future Appointments Appointment Date:09/09/2023 02:15:00 PM Scheduled Provider:Katia JACOBS MD Location:[facility] Appointment Type:URO Procedure 15 min [facility] Evaluation + Plan note Future Appointments Appointment Date:10/07/2023 02:45:00 PM Scheduled Provider:Katia JACOBS MD Location:[facility] Appointment Type:URO Procedure 15 min [facility] Evaluation + Plan note Future Appointments Appointment Date:10/31/2023 11:00:00 AM Scheduled Provider: Location:[facility] Appointment Type:URO Nurse Visit [facility] Evaluation + Plan note Future Appointments Appointment Date:10/31/2023 11:00:00 AM Scheduled Provider: Location:[facility] Appointment Type:URO Nurse Visit Diagnostic Tests Pending * UroVysion Fish and Urine Cyto ([facility]) 10[facility]03/23 [facility] Future Appointments Appointment Date:11/04/2023 10:30:00 AM Scheduled Provider: Location:[facility] Appointment Type:URO Nurse Visit [facility] Evaluation + Plan note Future Appointments Appointment Date:12/02/2023 11:00:00 AM Scheduled Provider:TC Boles APRN, [place] Location:[facility] Appointment Type:URO Office Visit [facility] evaluation + Plan note Future Appointments Appointment Date:01/20/2024 11:30:00 AM Scheduled Provider:TC Boles APRN, [place] Location:[facility] Appointment Type:URO Office Visit [facility] evaluation + Plan note Future Appointments Appointment Date:04/06/2024 11:00:00 AM Scheduled Provider:Katia JACOBS MD Location:[facility] Appointment Type:URO Procedure 15 min [facility] evaluation + Plan note Future Appointments Appointment Date:05/06/2024 12:30:00 PM Scheduled Provider:Fabi Antonio Location:[facility] Appointment Type:URO Office Visit Appointment Date:10/05/2024 02:00:00 PM Scheduled Provider:Kat[facility]ACOBS MD [facility] Type:[facility] Procedure 15 min [facility] Evaluation + Plan note Future Appointments Appointment Date:05/06/2024 12:30:00 PM Scheduled Provider:Fabi Antonio Location:[facility] Appointment Type:URO Office Visit Appointment Date:10/05/2024 02:00:00 PM Scheduled Provider:Katia JACOBS MD Location:[facility] Appointment Type:URO Procedure 15 min Diagnostic Tests Pending * UroVysion Fish and Urine Cyto ([facility]) 04/06/24 [facility] Evaluation + Plan note Future Appointments Appointment Date:06/29/2024 10:00:00 AM Scheduled Provider:HEATHER OMALLEY PA-C Location:[facility] Appointment Type:URO Office Visit Appointment Date:10/05/2024 02:00:00 PM Scheduled Provider:Katia JACOBS MD Location:[facility] Appointment Type:URO Procedure 15 min [facility] Urology [facility] Evaluation + Plan note Future Appointments Appointment Date:08/12/2024 11:20:00 AM Scheduled Provider:HEATHER OMALLEY PA-C Location:[facility] Appointment Type:URO Complex Office Visit Appointment Date:10/05/2024 02:00:00 PM Scheduled Provider:Katia JACOBS MD Location:[facility] Appointment Type:URO Procedure 15 min [facility] evaluation + Plan note Future Appointments Appointment Date:11/16/2024 02:00:00 PM Scheduled Provider:Katia JACOBS MD Location:[facility] Appointment Type:URO Procedure 15 min [facility] evaluation + Plan note Future Appointments Appointment Date:12/14/2024 11:00:00 AM Scheduled Provider:Eboni Anderson PA-C Location:[facility] Appointment Type:URO Office Visit [facility] Evaluation + Plan note Future Appointments Appointment Date:12/14/2024 11:00:00 AM Scheduled Provider:Eboni Anderson PA-C Location:[facility] Appointment Type:URO Office Visit Diagnostic Tests Pending * [facility] Fish and Urine Cyto ([facility]) 11/16/24 [facility] Evaluation + Plan note Future Appointments Appointment Date:01/12/2025 12:30:00 PM Scheduled Provider:Eboni Anderson PA-C Location:[facility] Appointment Type:URO Office Visit [facility] evaluation + Plan note Future Appointments Appointment Date:02/10/2025 01:50:00 PM Scheduled Provider:TC Boles APRN, [place] X Location:[facility] Appointment Type:URO Office Visit [facility] evaluation + Plan note Future Appointments Appointment Date:03/10/2025 01:50:00 PM Scheduled Provider:TC Boles APRN, [place] X Location:[facility] Appointment Type:URO Office Visit [facility] evaluation note* Diagnosis Onset Date Resolution Status AAA (abdominal aortic aneurysm) acute Acute kidney injury acute Acute metabolic encephalopathy acute Bilateral hydronephrosis acu te Bladder mass acute Diarrhea acute Folic acid deficiency acute Hyperkalemia acute Metabolic acidosis acute Pre-operative cardiovascular examination, bradyarrhythmia acute 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 acute Sunding acute TIA (transient ischemic attack) acute Tobacco abuse acute UTI (urinary tract infection) acute [facility] B 12 [facility] Work Phone: evaluation noteNo assessment information available [facility] Work Phone: Evaluation noteNo InformationNocox branson [employer] [place] Other Evaluation note* Diagnosis Onset Date Resolution Status Status post endovascular aneurysm repair (EVAR) acute Abdominal aortic aneurysm without rupture acute Anemia acute Chronic kidney disease, stage 3b acute Hyperlipidemia acute Hypertensive nephropathy acu te Iron deficiency [facility]: Evaluation note* Diagnosis Onset Date Resolution Status Abdominal aortic aneurysm without rupture acute Anemia acute Chronic kidney disease, stage 3b acute Hyperlipidemia acute Hypertensive nephropathy acu te Iron deficiency acute [facility] Work Phone: Evaluation note* Diagnosis [...] cardiomyopathy acut e Sleep-wake cycle disorder ac [place] ST elevation myocardial infa rction (STEMI) of anterior wall acute Status post endovascular aneurysm repair (EVAR) acute Stented coronary artery acut e [facility] Work Phone: Evaluation note* Diagnosis Onset Date Resolution Status Abdominal aortic aneurysm without rupture acute Atrial fibrillation, new onset acute Chronic kidney disease, stage 3b acute Chronic systolic heart failure acute Hyperlipidemia acute Hypertensive nephropathy acu te Hypotension acute Impaired mobility and activities of daily living acute Iron deficiency acute Ischemic cardiomyopathy acut e Sleep-wake cycle disorder ac [place] ST elevation myocardial infa rction (STEMI) of anterior wall acute Status post endovascular aneurysm repair (EVAR) acute Stented coronary artery acut e Delirium resolved Abdominal aortic aneurysm without rupture acute Anemia acute CHF (congestive heart failure) acute Chronic kidney disease, stage 3b acute Hyperlipidemia acute Hypertensive nephropathy acu te Iron deficiency acute Obstructive nephropathy acut e [facility] Work Phone: Evaluation note* Diagnosis Paroxysmal atrial fibrillation (Multi) Atrial fibrillation documented in this encounter [facility] Work Phone: Evaluation note* Diagnosis Pneumonia of left lower lobe due to infectious organism- Primary Simple chronic bronchitis (CMS/HCC) Simple chronic bronchitis [facility] Diagnosis Onset Date Resolution Status Abdominal aortic aneurysm without rupture acute Atrial fibrillation, new onset acute Chronic kidney disease, stage 3b acute Chronic systolic heart failure acute Hyperlipidemia acute Hypertensive nephropathy acu te Hypotension acute Impaired mobility and activities of daily living acute Iron deficiency acute Ischemic cardiomyopathy acut e Sleep-wake cycle disorder ac [place] ST elevation myocardial infa rction (STEMI) of anterior wall acute Status post endovascular aneurysm repair (EVAR) acute Stented coronary artery acut e Delirium resolved Abdominal aortic aneurysm without rupture acute Anemia acute CHF (congestive heart failure) acute Chronic kidney disease, stage 3b acute Hyperlipidemia acute Hypertensive nephropathy acu te Iron deficiency acute Obstructive nephropathy acut e Chest congestion noneactive [facility] Work Phone: Evaluation note* Diagnosis Onset Date Resolution Status Abdominal aortic aneurysm without rupture acute Atrial fibrillation, new onset acute Chronic kidney disease, stage 3b acute Chronic systolic heart failure acute Hyperlipidemia acute Hypertensive nephropathy acu te Hypotension acute Impaired mobility and activities of daily living acute Iron deficiency acute Ischemic cardiomyopathy acut e Sleep-wake cycle disorder ac [place] ST elevation myocardial infa rction (STEMI) of [...] noneactive Right lower lobe pneumonia n oneactive [facility] Work Phone: Evaluation note* Diagnosis Pneumonia of right lower lobe due to infectious organism documented in this encounter [facility] HealthcareEvaluation note* Diagnosis Coronary artery disease involving [place] coronary artery of [place] heart without angina pectoris- Primary Paroxysmal atrial [...] health QT prolongation documented in this encounter [facility] Work Phone: Evaluation note* Diagnosis Simple chronic bronchitis (CMS/HCC) Simple chronic bronchitis documented in this encounter [facility] HealthcareEvaluation note* Diagnosis Paroxysmal atrial fibrillation (Multi) Atrial fibrillation High risk medication use Coronary artery disease involving [place] coronary artery of [place] heart without angina pectoris S/P PTCA (percutaneous [...] hazards to health documented in this encounter [facility] Work Phone: Evaluation note* Diagnosis Essential hypertension, [...] to health Overweight documented in this encounter [facility] HealthcareEvaluation note* Diagnosis Encounter for Medicare annual wellness exam- Primary Advance directive discussed with patient Encounter for screening for other disorder Screening for alcohol problem Screening for alcoholism Former smoker Personal history of tobacco use, presenting hazards to health Overweight documented in this encounter [facility] HealthcareEvaluation note* Diagnosis Cardiomyopathy, ischemic- Primary 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 Paroxysmal atrial fibrillation (Multi) Atrial fibrillation High risk medication use S/P PTCA (percutaneous transluminal coronary angioplasty) Postsurgical percutaneous transluminal coronary angioplasty status ST elevation myocardial infarction (STEMI), unspecified artery (Multi) Infrarenal abdominal aortic aneurysm (AAA) without rupture ([facility]) Essential hypertension Unspecified essential hypertension Dyslipidemia Other and unspecified hyperlipidemia Stage 3a chronic kidney disease (Multi) Transient cerebral ischemia, unspecified type Hematuria, unspecified type Hyperthyroidism Thyrotoxicosis without mention of goiter or other cause, without mention of thyrotoxic crisis or storm BMI 26.0-26.9,adult Former smoker Personal history of tobacco use, presenting hazards to health documented in this encounter [facility] Work Phone: Evaluation note* Diagnosis ST elevation myocardial infarction (STEMI), unspecified artery (Multi) Cardiomyopathy, ischemic 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 S/P PTCA (percutaneous transluminal coronary angioplasty) Postsurgical percutaneous transluminal coronary angioplasty status documented in this encounter [facility] Work Phone: Evaluation note* Diagnosis Onset Date [...] July 10:25am Obstructive nephropathy acute 2024 10:25am [facility] Work Phone: Evaluation note* Diagnosis Recurrent UTI- Primary Urinary tract infection, site not specified Need for prophylaxis against urinary tract infection documented in this encounter [facility] HealthcareEvaluation note* Diagnosis Cardiomyopathy, ischemic 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 S/P PTCA (percutaneous [...] health BMI 26.0-26.9,adult documented in this encounter [facility] Work Phone: Evaluation note* Diagnosis 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 disturbance, psychotic disturbance, mood disturbance, or anxiety (CMS/HCC) Hallucinations Need for prophylaxis against urinary tract infection Indwelling urinary catheter present Former smoker Personal history of tobacco use, presenting hazards to health Polypharmacy Issue of repeat prescriptions Overweight documented in this encounter [facility] HealthcareEvaluation note* Diagnosis Community acquired pneumonia of [...] Acute metabolic encephalopathy documented in this encounter [facility] HealthEvaluation note* Diagnosis Cardiomyopathy, ischemic- Primary [...] Unspecified cardiac dysrhythmia documented in this encounter [facility] Work Phone: Evaluation note* Diagnosis Peripheral vascular [...] psychotic disturbance, mood disturbance, or anxiety (HCC) documented in this encounter [facility] HealthcareHistory and physical note Author Willy Lambert [facility] January 14, 2024 8:46am Note Date/Time January 14, 2024 8: 46am [facility] [address] [place] [address] Gastroenterology H&P Signed Patient: Alex Anderson MR#: [id number] : 1945 Acct:[id number] Age/Sex: 78 / M Adm Date: 4 Loc: Room: Type: [facility] Attending Dr: Willy Lambert MD Copies to: [...] Lambert MD Documented By: Willy Lambert MD 01/14/24 0845 Signed By: <Electronically signed by Willy Lambert MD> 01/14/24 0846 [facility] Work Phone: Hisxafz general Narrative - Reported* Type Description Date [...] INJ URY, 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, 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 [facility] Other Hismder general Narrative - Reported* Type Description Date [...] INJ URY, 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, 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 [employer] Other History general Narrative - Reported* Type [...] 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 Hospitalization History SEE ABOVE [facility] [employer] Other Hospital Discharge instructions No data available for this section [facility] Progress note No data available for this section [facility] reason for referral (narrative)* Consultation (Routine) - Authorized Specialty Diagnoses / Procedures Referred By Anish womack Referred To Contact Cardiac Rehabilitation Diagnoses Coronary artery disease involving [place] coronary artery of [place] heart without angina pectoris S/P PTCA (percutaneous transluminal coronary angioplasty) ST elevation myocardial infarction (STEMI), unspecified artery (Multi) Teo Al MD [address] [place] [address] Referral ID Status Reason Start Date Expiration Date Visits Requested Visits Authorized [id number] Authorized Specialty Services Required 02/10/2024 02/09/2025 1 1 Scheduling Instructions [place] * PFT (Routine) - Authorized Specialty Diagnoses / Procedures Referred By Anish womack Referred To Contact Diagnoses Paroxysmal atrial fibrillation (Multi) High risk medication use Procedures Complete Pulmonary Function Test (Spirometry/DLCO/Lung Volumes) Teo Al MD [address] [place] [address] Referral ID Status Reason Start Date Expiration Date V isits Requested Visits Authorized [id number] Authorized 02/10/2024 02/09/2025 1 1 * Imaging (Routine) - Authorized Specialty Diagnoses / Procedures Referred By Contac t Referred To Contact Radiology Diagnoses Paroxysmal atrial fibrillation (Multi) High risk medication use Procedures XR chest 2 views Teo Al MD [address] [place] [address] Referral ID Status Reason Start Date Expiration Date Visits Requested Visits Authorized [id number] Authorized Perform Procedure 02/10/2024 02/09/2025 1 1 * Consultation (Routine) - Authorized Specialty Diagnoses / Procedures Referred By Contac t Referred To Contact Cardiology Diagnoses Paroxysmal atrial fibrillation (Multi) Procedures Follow Up In Cardiology Teo Al MD [address] [place] [id number] Teo Al MD [address] [place] [address] Referral ID Status Reason Start Date Expiration Date V isits Requested Visits Authorized [id number] Authorized 02/10/2024 02/09/2025 1 1 * Cardiovascular (Routine) - Authorized Specialty Diagnoses / Procedures Referred By Contac t Referred To Contact Diagnoses Paroxysmal atrial fibrillation (Multi) Procedures ECG 12 Lead Teo Al MD [address] [place] [address] Referral ID Status Reason Start Date Expiration Date V isits Requested Visits Authorized [id number] Authorized 02/10/2024 02/09/2025 1 1 * Cardiovascular (Routine) - Authorized Specialty Diagnoses / Procedures Referred By Contac t Referred To Contact Diagnoses Paroxysmal atrial fibrillation (Multi) Procedures ECG 12 Lead Teo Al MD [address] [place] [id number] Referral ID Status Reason Start Date Expiration Date V isits Requested Visits Authorized [id number] Authorized 02/10/2024 02/09/2025 1 1 [facility] Work Phone: Reason for visit Narrative* CV Imaging (Routine) - Authorized Specialty Diagnoses / Procedures Referred By Contac t Referred To Contact Cardiology Diagnoses ST elevation myocardial infarction (STEMI), unspecified artery (Multi) Cardiomyopathy, ischemic Coronary artery disease involving [place] coronary artery of [place] heart without angina pectoris S/P PTCA (percutaneous transluminal coronary angioplasty) Procedures Transthoracic Echo Limited KS ECHO TRANSTHORC R-T 2D W/WO M-MODE REC F-UP/LMTD KS DOPPLER ECHO COLOR FLOW VELOCITY MAPPING KS DOPPLER ECHO PULSE WAVE W/SPECTRAL F-UP/LMTD STD Teo Al MD [address], [address] [address] Phone: tel: fax: Referral ID Status Reason Start Date Expiration Date Visits Requested Visits Authorized [id number] Authorized Perform Procedure 07/29/2024 07/29/2025 1 1 [facility] Work Phone: Summary Purpose Family History No [...] Maker Lindy Anderson Child Secondary Decision Maker Documents on File Type Date Recorded Patient Starting Sheet Tank Operator Expl anation ACP-Advance Directive 10/06/2024 4:23 PM [...] I71.4 1 YR F/U AAA; [place] [facility] Chief Complaint I71.4 1 YR F/U AAA; [place] [facility] [place] 6 month f/u Reason for Visit [...] and content) DATE CREATED AUTHOR 05/12/2021 [facility] dical Specialist DATE CREATED AUTHOR AUTHOR'S ORGANIZ ATION 09/23/2022 [facility] DATE CREATED AUTHOR AUTHOR'S ORGANIZ ATION 01/23/2023 [facility] DATE CREATED AUTHOR AUTHOR'S ORGANIZ ATION 01/23/2023 [facility] DATE CREATED AUTHOR AUTHOR'S ORGANIZ ATION 08/03/2024 [facility] DATE CREATED AUTHOR AUTHOR'S ORGANIZ ATION 08/14/2024 [facility] DATE CREATED AUTHOR AUTHOR'S ORGANIZ ATION 10/07/2024 [facility] DATE CREATED AUTHOR AUTHOR'S ORGANIZ ATION 10/08/2024 [facility] DATE CREATED AUTHOR AUTHOR'S ORGANIZ ATION 10/12/2024 [facility] DATE CREATED AUTHOR AUTHOR'S ORGANIZ ATION 10/22/2024 [facility] DATE CREATED AUTHOR AUTHOR'S ORGANIZ ATION 11/10/2024 [facility] DATE CREATED AUTHOR AUTHOR'S ORGANIZ ATION 11/12/2024 [facility] dical Specialists [facility] DATE CREATED AUTHOR AUTHOR'S ORGANIZ ATION 11/17/2024 [facility] DATE CREATED AUTHOR AUTHOR'S ORGANIZ ATION 12/15/2024 [facility] DATE CREATED AUTHOR AUTHOR'S ORGANIZ ATION 02/12/2025 [facility] Patient Care team informatio n (unrecognized [...] Dec ust 2023 End: January 23, 2024 Vidya Hernandez NP-Quynh Other Provider Active St art: January 16, 2024 End: January 23, 2024 Valdo Sandra APRN Other Provider Active Star t: January 16, 2024 End: January 23, 2024 Rob Almazan MD Other Provider Active Start: January 16, 2024 End: January 23, 2024 Danielito Claros MD Other Provider Active Start: estefania 2023 End: January 23, 2024 Seb Bonds MD Other Provider Active Start: Dec 2023 End: January 23, 2024 Basilio Tam MD [...] : January 16, 2024 Dora Prado APRN [facility]- Other Provider Active Start: January 16, 2024 Isaac Edwards MD Other Provider Active Start: January 16, 2024 Ed Velasquez MD Other Provider Active St art: January 16, 2024 Bob Hackett MD Other Provider Active Start: A ust 2023 Dean Perry DO Other Provider Active Start: January 16, 2024 Aayush Gallo DO Other Provider Active Start: January 16, 2024 Fermin Shukla MD Other Provider Active Start: A ust 2023 Kashmir Gonzales MD Other Provider Active Start: January 16, 2024 Justina Lara MD Attending Provider, Other Provider Active Start: January 16, 2024 Shania Armijo MD Other Provider Active Start: January 16, 2024 Team Status: Active Member Role Status Dates Stanley Emerson MD Primary Care Provider Active Start: January 23, 2024 Nas Pruett DO Admit Provider, Oth er Provider Active Start: January 23, 2024 Myesha Feliz MD Other Provider Active Start: Au estefania 2023 Rogelio Rai MD Other Provider Active Start: A ugust 2023 Heaven Truong APRN Other Provider Active St art: January 23, 2024 Mckay Yeboah Jr, Other Provider Active S tart: January 23, [...] Garcia MD Other Provider Active Start: A [facility] 2023 Lydia Rene , Other Provider Active Start: estefania 2023 Lucas Dumas , Other Provider Active [...] Mayo MD Other Provider Active Start: A [facility] 2023 Shane Durham MD Other Provider Active [...] Haddad MD Other Provider Active Start: A [facility] 2023 Emmanuel Silverman MD Other Provider Active Start: rust 2023 Monisha Moore RN Other Provider Active Start: A [facility] 2023 Isaac Edwards MD Attending Provider Active Start: January 23, 2024 Team Status: Active Member Role Status Dates Stanley Emerson MD Primary Care Provider Active Start: January 23, 2024 Nas Pruett , Admit Provider, Ot er Provider Active Start: January 23, 2024 Myesha Feliz MD Other Provider Active Start: rust 2023 Rogelio Rai MD Attending Provider, Other [...] Other Provider Active Start: Au estefania 2023 Jad Jaffe MD Other Provider Active Start: Dec FARHAT Gayle Other Provider Active St art: January 23, 2024 Valdo Sandra APRN Other Provider Active Star t: January 23, 2024 Rob lAmazan MD Other Provider Active Start: January 23, 2024 Danielito Claros MD Other Provider Active Start: Au estefania 2023 Seb Bonds MD Other Provider Active Start: Dec Basilio Tam MD Other Provider Active Star t: January 23, 2024 Reji Garcia MD Other Provider Active Start: A ugust 2023 Lydia Rene , Other Provider Active Start: Au rust 2023 Lucas Dumas , Other Provider Active Start : January 23, 2024 Cortney Watkins , BENEFITS ADVISOR Other Provider Active Start: January 23, 2024 Jakob Lomax , Other Provider Active Start: January 23, 2024 Nick Ken MD Other Provider Active Sta rt: January 23, 2024 Yaz Beard BENEFITS ADVISOR Other Provider Active Start : January 23, [...] Emmanuel Silverman MD Other Provider Active Start: [facility] 2023 Monisha Moore RN Other Provider Active Start: A ugust 2023 Team Status: Active Member Role Status Dates Stanley Emerson MD Primary Care Provi maddy, Attending Provider Active Start: September 30, 2023 Team Status: Active Member Role Status Dates Stanley Emerson MD Primary Care Provider Active Start: October 16, 2023 Preston Griffin MD Attending Provider Active [...] February 04, 2024 End: February 04, 2024 Plant Protection Supervisor Relationship Specialty Start Date End Date Stanley Emerson MD [address] [place] [address] PCP - General 05/17/22 Plant Protection Supervisor Relationship Specialty Start Date End Date Stanley Emerson MD [address] [place] [address] PCP - ACO Reach 10/17/22 Stanley Emerson MD [address] [place] [place] [address] PCP - General Family Medicine 11/20/22 Dora Santiago LPN Licensed Practical Nurse Family Medicine 12/22/23 Plant Protection Supervisor Relationship Specialty Start Date End Date Stanley Emerson MD [address] [place] [address] PCP - ACO Reach 10/17/22 Stanley Emerson MD [address] [place] [place] [address] PCP - General Family Medicine 11/20/22 Dora Santiago LPN Licensed Practical Nurse [facility] Medicine 12/22/23 Team Status: Inactive Member [...] Rogel , ROCIO Other Provider Active Start: Erika ugakanksha 2023 End: January 23, 2024 Daisha Li [...] Lydia Rene , Other Provider Active Start: estefania 2023 End: January 23, 2024 Lucas Dumas , Other Provider Active Start : January 16, 2024 End: January 23, 2024 Cortney Watkins APRN Other Provider Active Start: January 16, 2024 End: January 23, 2024 Jakob Lomax , Other Provider Active Start: January 16, [...] Mayo MD Other Provider Active Start: A ust 2023 End: January 23, 2024 Shane Durham [...] March 08, 2024 End: March 08, 2024 Plant Protection Supervisor Relationship Specialty Start Date End Date Stanley Emerson MD [address] [place] [address] (Fax) PCP - ACO Reach 10/17/22 Stanley Emerson MD [address] [place] [address] PCP - General Family Medicine 11/20/22 Dora Santiago LPN Licensed Practical Nurse Family Medicine 12/22/23 Plant Protection Supervisor Relationship Specialty Start Date End Date Stanley Emerson MD [address] [place] [address] (Fax) PCP - ACO Reach 10/17/22 Stanley Emerson MD [address] [place] [address] (Fax) PCP - General Family Medicine 11/20/22 Dora Santiago LPN Licensed Practical Nurse Family Medicine 12/22/23 Plant Protection Supervisor Relationship Specialty Start Date End Date Stanley Emerson MD [address] [place] [phone] (Fax) PCP - ACO Reach 10/17/22 Stanley Emerson MD [address] [place] [address] (Fax) PCP - General Family Medicine 11/20/22 Dora Santiago LPN Licensed Practical Nurse Family Medicine 12/22/23 Plant Protection Supervisor Relationship Specialty Start Date End Date Stanley Emerson MD [address] [place] [address] (Fax) PCP - ACO Reach 10/17/22 Stanley Emerson MD [address] [place] [address] (Fax) PCP - General Family Medicine 11/20/22 Dora Santiago LPN Licensed Practical Nurse Family Medicine 12/22/23 Plant Protection Supervisor Relationship Specialty Start Date End Date Stanley Emerson MD [address] [place] [address] (Fax) PCP - ACO Reach 10/17/22 Stanley Emerson MD [address] [place] [address] (Fax) PCP - General Family Medicine 11/20/22 Dora Santiago LPN Licensed Practical Nurse Family Medicine 12/22/23 Plant Protection Supervisor Relationship Specialty Start Date End Date Stanley Emerson MD [address] [place] [address] PCP - General 05/17/22 Plant Protection Supervisor Relationship Specialty Start Date End Date Stanley Emerson MD [address] [place] [address] (Fax) PCP - ACO Reach 10/17/22 Stanley Emerson MD [address] [place] [address] (Fax) PCP - General Family Medicine 11/20/22 Dora Santiago LPN Licensed Practical Nurse Family Medicine 12/22/23 Plant Protection Supervisor Relationship Specialty Start Date End Date Stanley Emerson MD [address] [place] [address] (Fax) PCP - ACO Reach 10/17/22 Stanley Emerson MD [address] [place] [address] (Fax) PCP - General Family Medicine 11/20/22 Dora Santiago LPN Licensed Practical Nurse Family Medicine 12/22/23 Plant Protection Supervisor Relationship Specialty Start Date End Date Stanley Emerson MD [address] [place] [address] PCP - General 05/17/22 Plant Protection Supervisor Relationship Specialty Start Date End Date Stanley Emerson MD [address] [place] [address] (Fax) PCP - ACO Reach 10/17/22 Stanley Emerson MD [address] [place] [address] (Fax) PCP - General Family Medicine 11/20/22 Dora Santiago LPN Licensed Practical Nurse Family Medicine 12/22/23 Plant Protection Supervisor Relationship Specialty Start Date End Date Stanley Emerson MD [address] [place] [address] (Fax) PCP - ACO Reach 10/17/22 Stanley Emerson MD [address] [place] [address] (Fax) PCP - General Family Medicine 11/20/22 Dora Santiago LPN Licensed Practical Nurse Family Medicine 12/22/23 Plant Protection Supervisor Relationship Specialty Start Date End Date Stanley Emerson MD [address] [place] [address] (Fax) PCP - ACO Reach 10/17/22 Stanley Emerson MD [address] [place] [address] (Fax) PCP - General Family Medicine 11/20/22 Dora Santiago LPN Licensed Practical Nurse Family Medicine 12/22/23 Plant Protection Supervisor Relationship Specialty Start Date End Date Stanley Emerson MD [address] [place] [address] (Fax) PCP - ACO Reach 10/17/22 Stanley Emerson MD [address] [place] [address] (Fax) PCP - General Family Medicine 11/20/22 Dora Santiago LPN Licensed Practical Nurse Family Medicine 12/22/23 Plant Protection Supervisor Relationship Specialty Start Date End Date Stanley Emerson MD [address] [place] [address] PCP - General 05/17/22 Plant Protection Supervisor Relationship Specialty Start Date End Date Stanley Emerson MD [address] [place] [address] PCP - General 05/17/22 Team Status: Inactive Member Role Status Dates Stanley Emerson MD Primary Care Provider Active Start: May 21, 2024 End: May 21, 2024 Teo Al MD Attending Provider Active St art: May 21, 2024 End: May 21, 2024 Plant Protection Supervisor Relationship Specialty Start Date End Date Stanley Emerson MD [address] [facility] [address] [place] [address] (Fax) PCP - ACO Reach 10/17/22 Stanley Emerson MD [address] [facility] [address] [place] [address] (Fax) PCP - General Family Medicine 11/20/22 Joi Zhang LPN 08/26/24 Plant Protection Supervisor Relationship Specialty Start Date End Date Stanley Emerson MD [address] [place] [address] (Fax) PCP - ACO Reach 10/17/22 Stanley Emerson MD [address] [place] [address] (Fax) PCP - General Family Medicine 11/20/22 Dora Santiago LPN Licensed Practical Nurse Family Medicine 12/22/2308/26 Joi Zhang LPN 08/26/24 Plant Protection Supervisor Relationship Specialty Start Date End Date Stanley Emerson MD [facility] [address] [place] [address] PCP - General 05/17/22 Plant Protection Supervisor Relationship Specialty Start Date End Date Stanley Emerson MD [address] [place] [address] (Fax) PCP - ACO Reach 10/17/22 Stanley Emerson MD [address] [place] [address] (Fax) PCP - General Family Medicine 11/20/22 Joi Zhang LPN 08/26/24 Plant Protection Supervisor Relationship Specialty Start Date End Date Stanley Emerson MD [address] [place] [address] (Fax) PCP - ACO Reach 10/17/22 Stanley Emerson MD [address] [place] [address] (Fax) PCP - General Family Medicine 11/20/22 Joi Zhang LPN 08/26/24 Plant Protection Supervisor Relationship Specialty Start Date End Date Stanley Emerson MD [address] [place] [address] (Fax) PCP - ACO Reach 10/17/22 Stanley Emerson MD [address] [place] [address] (Fax) PCP - General Family Medicine 11/20/22 Joi Zhang LPN 08/26/24 Plant Protection Supervisor Relationship Specialty Start Date End Date Stanley Emerson MD [address] [place] [address] (Fax) PCP - General 10/02/24 Plant Protection Supervisor Relationship Specialty Start Date End Date Stanley Emerson MD [address] [place] [address] (Fax) PCP - General 10/02/24 Plant Protection Supervisor Relationship Specialty Start Date End Date Stanley Emerson MD [address] [id number] PCP - General 05/17/22 Ruby [place] MD [address] [facility] [address], [address] [address] [employer] Agent Electrophysiology 10/04/24 Plant Protection Supervisor Relationship Specialty Start Date End Date Stanley Emerson MD [address] [place] [address] (Fax) PCP - ACO Reach 10/17/22 Stanley Emerson MD [address] [place] [address] (Fax) PCP - General Family Medicine 11/20/22 Joi Zhang LPN 08/26/24 Plant Protection Supervisor Relationship Specialty Start Date End Date Stanley Emerson MD [address] [place] [address] (Fax) PCP - ACO Reach 10/17/22 Stanley Emerson MD [address] [place] [address] (Fax) PCP - General Family Medicine 11/20/22 Joi Zhang LPN 08/26/24 Plant Protection Supervisor Relationship Specialty Start Date End Date Stanley Emerson MD [address] [facility] [address] [place] [address] (Fax) PCP - ACO Reach 10/17/22 Stanley Emerson MD [address] [place] [address] (Fax) PCP - General Family Medicine 11/20/22 Joi Zhang LPN [address] [facility] [address] [place] [address] 08/26/24 Plant Protection Supervisor Relationship Specialty Start Date End Date Stanley Emerson MD [address] [facility] [address] [place] [address] (Fax) PCP - ACO Reach 10/17/22 Stanley Emerson MD [address] [facility] [address] [place] [address] (Fax) PCP - General Family Medicine 11/20/22 Joi Zhang LPN [address] [facility] [address] [place] [address] 08/26/24 REASON FOR VISIT (unrecogniz ed section and content) Reason Comments ekg visit Specialty Diagnoses / Procedures Referred By Contac t Referred To Contact Diagnoses Paroxysmal atrial fibrillation (Multi) Procedures ECG 12 Lead Teo Al MD [address] [facility] [address], [facility] [address] [place] [address] Referral ID Status Reason Start Date Expiration Date V isits Requested Visits Authorized [id number] Authorized 02/10/2024 02/09/2025 1 1 Reason Comments URI Reason Comments Hospital Follow-[place] [facility] [place] Specialty Diagnoses / Procedures Referred By Contac t Referred To Contact Diagnoses Paroxysmal atrial fibrillation (Multi) Procedures ECG 12 Lead Teo Al MD [address] [facility] [address] [place] [address] Referral ID Status Reason Start Date Expiration Date V isits Requested Visits Authorized [id number] Authorized 02/10/2024 02/09/2025 1 1 Reason Comments Med Refill Reason Comments Follow-up Specialty Diagnoses / Procedures Referred By Contac t Referred To Contact Cardiology Diagnoses Paroxysmal atrial fibrillation (Multi) Procedures Follow Up In Cardiology Teo Al MD [address] [facility] [address] [place] [address] Phone: tel: fax: Teo Al MD [address] [facility] [address] [place] [address] Phone: tel: fax: Referral ID Status Reason Start Date Expiration Date V isits Requested Visits Authorized [id number] Authorized 02/10/2024 02/09/2025 1 1 Reason Comments Annual Exam Specialty Diagnoses / Procedures Referred By Contac t Referred To Contact Cardiology Diagnoses Cardiomyopathy, ischemic Procedures Follow Up In Cardiology Teo Al MD [address], [place] [address] [place] [address] Phone: tel: fax: Teo Al MD [address], [place] [address] [place] [address] Phone: tel: fax: Referral ID Status Reason Start Date Expiration Date V isits Requested Visits Authorized [id number] Authorized 05/21/2024 05/21/2025 1 1 Reason Comments Follow-up 1 month follow up ab normal testing Specialty Diagnoses / Procedures Referred By Contac t Referred To Contact Diagnoses Paroxysmal atrial fibrillation (Multi) Procedures ECG 12 Lead Teo Al MD [address] [facility] [address], [place] [address] [place] [address] Phone: tel: fax: Referral ID Status Reason Start Date Expiration Date V isits Requested Visits Authorized [id number] Authorized 09/10/2024 09/10/2025 1 1 Reason Comments Hallucinations Reason Comments New Patient Visit Patient is present t o establish care . Patient was referred by cardiology for Paroxysmal atrial fibrillation. Specialty Diagnoses / Procedures Referred By Contac t Referred To Contact Cardiology Diagnoses Cardiomyopathy, ischemic Teo Al MD [address] [facility] [address], [place] [address] [place] [address] Phone: tel: fax: Ruby [place] MD [address] [facility] Office [facility], [place] [address] [place] [address] Phone: tel: fax: Referral ID Status Reason Start Date Expiration Date Visits Requested Visits Authorized [id number] Authorized Specialty Services Required 09/10/2024 09/10/2025 1 1 Goals (unrecognized section and content) Goals may be documented in a n alternate section Ordered Prescriptions (unrec ognized section and content) Prescription Sig Dispense Quantity Refills Last Filled Start Date End Date sulfamethoxazole-t rimethoprim (BACTRIM DS;SEPTRA DS) 800-160 MG per tablet Take 1 tablet by mouth daily for 7 days 7 tablet 10/05/2024 5 albuterol sulfate HFA (PROVENTIL;VENTOLI N;PROAIR) 108 (90 [...] hours for 9 doses 9 tablet 10/05/2024 5 Scheduled Active and Recently Administ ered Medications (unrecognized section and content) Medication Order 10/03/2024 10/04/2024 10/05/2024 amiodarone (CORDARONE) tablet 200 mg 200 mg, Oral, DAILY, First dose on 10/02/24 at 1130, Until Discontinued 075 (Given - Provider: Mar Gonzalez RN) 0839 (Given - Provider: Jessy Wayne, RN) 0835 (Given - Provider: Coco Mirza, ROCIO) atorvastatin (LIPITOR) tablet 80 mg 80 mg, Oral, NIGHTLY, First dose on 10/02/24 at 2100, Until Discontinued 2038 (Given - Provider: Gi Berrios, ROCIO) 194 (Given - Provider: Milton Kaiser, ROCIO) 2100 (Due) azithromycin (ZITHROMAX) 500 mg in sodium chloride 0.9 % 250 mL IVPB ([id number]) (COMPLETED) 500 mg, IntraVENous, EVERY 24 HOURS, 2 doses, First dose on 10/02/24 at 1200, Last dose on Fri10/03/24 at 1200, Antimicrobial Indications: Pneumonia (CAP), CAP duration of therapy: 3 days, Use 20mm (Blue) [id number] Adapter Preparation instructions: Attach medication vial to one 20mm (Blue) [id number] adapter. James fluid bag with adapter, mix, [...] 75 mg, Oral, DAILY, First dose on 10/02/24 at 1130, Until Discontinued 0754 (Given - Provider: Mar Gonzalez RN) 0839 (Given - Provider: Jessy Wayne RN) 0835 (Given - Provider: Coco Mirza RN) ferrous sulfate (IRON 325) tablet 325 mg (CANCELED) 325 mg, Oral, 2 TIMES DAILY WITH MEALS, First dose on 10/02/24 at 1130, Until Discontinued 0754 (Given - Provider: Mar Gonzalez RN)1716 (Given [...] dose on Fri10/03/24 at 0900, Until Discontinued 0754 (Given - Provider: Mar [...] Oral, 2 TIMES DAILY, First dose on 10/02/24 at 1130, Until Discontinued 075 (Given - Provider: Mar Gonzalez RN)2039 (Given - Provider: Gi Berrios RN) 0841 (Given - Provider: Jessy Wayne RN)194 (Given - Provider: Milton Kaiser RN) 0843 (Given - Provider: Coco Mirza RN)2099 (Due) metoprolol succinate (TOPROL XL) extended release tablet 25 mg 25 mg, Oral, DAILY, First dose on 10/03/24 at 0900, Until Discontinued, Do not crush or chew. 0754 (Given - Provider: Mar Gonzalez RN) 0839 (Given - Provider: Jessy Wayne RN) 0836 (Given - Provider: Coco Mirza RN) QUEtiapine (SEROQUEL) tablet 25 mg 25 mg, Oral, NIGHTLY, First dose on 10/02/24 at 2100, Until Discontinued 2038 (Given - Provider: Gi Berrios RN) 194 (Given - Provider: Milton Kaiser RN) 2099 [...] Mar Gonzalez RN)2038 (Given - Provider: Gi Berrios, ROCIO) 0841 (Given - Provider: Jessy Wayne RN)194 (Given - Provider: Milton Kaiser, ROCIO) 0843 (Given - Provider: Coco Mirza RN)2100 [...] Discontinued, Sleep 1940 (Given - Provider: Milton Kaiser RN) nitroGLYCERIN (NITROSTAT) SL tablet 0.4 mg 0.4 [...] 3) 10 mEq, IntraVENous, PRN, Starting on Sat 5 at 1050, Until Discontinued, at 100 mL/hr, [...] mL 5-40 mL, IntraVENous, PRN, Starting on Sat 5 at 1050, Until Discontinued, Line Care, After [...] 10/02/24 at 1050, Until Discontinued, Nausea, Vomiting Or ondansetron (ZOFRAN) injection 4 mgJump to med 4 mg, IntraVENous, EVERY 6 HOURS PRN, Starting on 10/02/24 at 1050, Until Discontinued, Nausea, Vomiting, Administer if oral route cannot be used. Group 3: potassium chloride (KLOR-CON M) extended release tablet 40 mEqJump to med 40 mEq, Oral, PRN, Starting on 10/02/24 [...] med 40 mEq, Oral, PRN, Starting on 10/02/24 [...] BE BASED ON THE PRIMARY CLINICAL RECORDS. [email or web address] provides no warranty or guarantee of the accuracy or completeness of information in this document.
[2025-02-28 12:06] LABS: Hematocrit 38.4 % (42.0-54.0); Hemoglobin 11.6 g/dL (14.0-18.0); Mean Corpuscular HGB Conc 30.2 g/dL (29.9-35.2); Mean Corpuscular Hemoglobin 26.6 pg (25.9-34.0); Mean Corpuscular Volume 88.1 fL (80.0-94.0); Platelet Count 193 10^3/uL (150-450); Red Blood Count 4.36 10^6/uL (4.70-6.10); White Blood Count 7.1 10^3/uL (4.0-11.0)
[2025-02-28 12:34] LABS: Albumin Level 3.8 g/dL (3.4-5.0); Anion Gap 12.9; Blood Urea Nitrogen 31.0 mg/dL (7.0-18.0); Calcium 8.6 mg/dL (8.5-10.1); Carbon Dioxide 27.9 mmol/L (21.0-32.0); Chloride 108 mmol/L (98-107); Estimated GFR (African America 34 (>=60 mL/min/1.73m^2); Estimated GFR (Non-African Ame 28 (>=60 mL/min/1.73m^2); Glucose 105 mg/dL (74-106); Iron 29.0 ug/dL (65.0-175.0); Magnesium 2.3 mg/dL (1.8-2.4); Percent Iron Saturation 9.6 %; Potassium 3.8 mmol/L (3.5-5.1); Sodium 145 mmol/L (136-145); Total Iron Binding Capacity 301.0 ug/dL (250.0-450.0); Uric Acid 6.5 mg/dL (3.5-7.2)
[2025-02-28 12:45] LABS: Protein Creatinine Ratio Urine 0.47; Total Protein Urine Random 7.7 mg/dL (<=11.9)
[2025-02-28 14:36] LABS: Ferritin 59.0 ng/mL (26.0-388.0)
[2025-03-01 04:07] LABS: Vitamin B12 689 pg/mL (232-1245)
== END 2025-02-28 11:24 | disposition home or self-care (01) ==
PROVIDERS: PCP Family Medicine; Visit Provider Internal Medicine Nephrology
DX: D64.9 Anemia, unspecified (principal); I50.22 Chronic systolic (congestive) heart failure; I12.9 Hypertensive chronic kidney disease with stage 1 through stage 4 chronic kidney disease, or unspecified chronic kidney disease; E61.1 Iron deficiency; I71.40 Abdominal aortic aneurysm, without rupture, unspecified; N13.8 Other obstructive and reflux uropathy; N18.32 Chronic kidney disease, stage 3b
CPT/HCPCS: 36415; 80069; 82306; 82570; 82607; 82728; 82746; 83540; 83550; 83735; 83970; 84156; 84550; 85027

== ENCOUNTER 2025-03-18 07:59 | Outpatient (OUT) | payer MEDICARE, OTHER, SELFPAY ==
--- OUTSIDE RECORDS SUMMARY | 2025-03-09 10:56 | XMS_ITS | Continuity of Care Document ---
Author Organization [facility] Address [address] [place] [address] Phone Care Team Providers Care Shallot Cleaner Name Role Phone Stanley Toledo MD Primary Care Provider Celia Griffin MD Attending Provider Care Teams Patient Care Team Team Status: Active Member Role Status Dates Stanley Toledo MD Primary Care Provider Active Patient Care Team Team Status: Active Member Role Status Dates Stanley Toledo MD Primary Care Provider Active Start: February 28, 2025 Arabella Bills ProviderActiveStart: February 28, 2025 Patient Care Team Team Status: Inactive Member Role Status Dates Stanley Toledo MD Primary Care Provider Active Start: March 09, 2025 End: March 09Arabella Lew ProviderActiveStart: March 09, 2025 End: March 09, 2025 Chief Complaint and Reason for Visit Chief Complaint Admit Date renal 4 month f/u March 09, 2025 2 :22pm Reason for Visit Admit Date Abdominal aortic aneurysm without ruptur e March 09, 2025 2:22pm Anemia March 09, 2025 2 :22pm CHF (congestive heart failure) February 232024 2:22pm Chronic kidney disease, stage 3b March 09, 2025 2:22pm Hyperlipidemia March 09, 2025 2 :22pm Hypertensive nephropathy March 09, 2 025 2:22pm Hypokalemia March 09, 2025 2 :22pm Iron deficiency March 09, 2025 2 :22pm Obstructive nephropathy March 09 2:22pm Allergies, Adverse Reactions, Alerts Allergen Type Severity Reaction Last Updated Verified Status No Known Allergies Allergy Unknown March 09, 2025 9:11amYesActive Social History Smoking Status Status Start Date End Date Date of Observa tion Ex-smoker (finding) March 09, 2025 2:30pm Observation Status Observation Response Date of Response Legal Sex Male (finding) [facility] Family History Relationship Condition Age at Onset Recorded Date/T deandra father Neoplasm of brain Unknown DeceasedUnknownmotherRheumatic feverUnknownDeceasedUnknownbrotherMalignant neoplasm of urinary bladderUnknownsonFamily history of mental disorderUnknown Problems Active Problems Medical Problem Onset Date Status Comments Acute kidney injury Unknown Active Lesion of colonUnknownActiveChronic kidney disease, stage 3bUnknownActiveStatus post endovascular aneurysm repair (EVAR)UnknownActiveImpaired mobility and activities of daily livingUnknownActiveStented coronary arteryUnknownActive Vitamin B 12 deficiencyUnknownActiveAAA (abdominal aortic aneurysm)UnknownActive SundowningUnknownActiveCHF (congestive heart failure)UnknownActiveAnemiaUnknown ActiveAbdominal aortic aneurysm without ruptureUnknownActiveDementiaUnknown ActiveFolic acid deficiencyUnknownActiveHyperlipidemiaUnknownActiveIschemic cardiomyopathyUnknownActiveChronic systolic heart failureUnknownActiveSleep-wake cycle disorderUnknownActiveTobacco abuseUnknownActiveAtrial fibrillation, new onsetUnknownActiveObstructive uropathyUnknownActivePre-operative cardiovascular examination, bradyarrhythmiaUnknownActiveBilateral hydronephrosisUnknownActiveST elevation myocardial infarction (STEMI) of anterior wallUnknownActiveBladder massUnknownActiveHypertensive nephropathyUnknownActiveHypotensionUnknownActive Obstructive nephropathyUnknownActiveAneurysm of left popliteal arteryUnknown ActiveHypokalemiaUnknownActiveIron deficiencyUnknownActiveInactive/Resolved Problems Medical Problem Onset Date Status Comments Acute kidney injury Unknown Resolved Problem List clean-up per request of Phys. EHR Cmte UTI (urinary tract infection) Unknown Resolved Problem List clean-up per request of Phys. EHR Cmte 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 Unknown Resolved Problem List clean-u p per request of Phys. EHR Cmte Vitamin B 12 deficiency Unknown Resolved Prob ben List clean-up per request of Phys. EHR Cmte AAA (abdominal aortic aneurysm) Unknown Resolved Problem List clean-up per request of Phys. EHR Cmte Sundowning Unknown Resolved DeliriumUnknownResolvedDementiaUnknownResolvedDiarrheaUnknownResolvedProblem List clean-up per request of Phys. EHR CmteFolic acid deficiencyUnknownResolved TIA (transient ischemic attack)UnknownResolvedProblem List clean-up per request of Phys. EHR CmteTobacco abuseUnknownResolvedquit april3Problem List clean-up per request of Phys. EHR CmteObstructive uropathyUnknownResolvedAcute metabolic encephalopathyUnknownResolvedProblem List clean-up per request of Phys. EHR CmtePre-operative cardiovascular examination, bradyarrhythmiaUnknown ResolvedProblem List clean-up per request of Phys. EHR CmteBilateral hydronephrosisUnknownResolvedMetabolic acidosisUnknownResolvedProblem List clean-up per request of Phys. EHR CmteBladder massUnknownResolvedProblem List clean-up per request of Phys. EHR CmteHyperkalemiaUnknownResolvedProblem List clean-up per request of Phys. EHR Cmte Medications Medication Status Dose Units Route Directions Qty Days St art Date Stop Date End Date Instructions Adherence Amlodipine 5 mg tablet Discontinued 5 MG PO Twic e daily 180 November 14, 2023 9:35amAugust 2023 2:17pmFurosemide 40 mg tabletDiscontinued 0.ROUTE.UGIPZCX78Ypkqkewm 2023 10:57amAugust 2024 2:55pmTAKE 1 TABLET BY MOUTH EVERY DAYIron Sucrose (Venofer) 200 mg iron/10 mL solutionDiscontinued 200MGIVevery vfbe16Lqq 2024 12:00amJune 2024 2:25pmadminister over 2- 5 minsIron Sucrose (Venofer) 200 mg iron/10 mL lbwhxfkwBtbsmppjshtu823EWBTbynqn asuv72QqekOctober 25, 2024 2:24pmJune 2024 2:27pmadminister over 2-5 minsIron Sucrose (Venofer) 200 mg iron/10 mL ddzunncfXxnxszlgsgdv108UQZVX1DGain 2024 12:00amJune 2024 9:27amadminister over 30 minsFerric Carboxymaltose (Injectafer) 100 mg iron/2 mL vvkayfbtLiveobjzqeal013TVMYB2MSqte 2024 12:00amJuly 2024 4:11pmFerrous Sulfate 325 mg (65 mg iron) filupoFoxxou986 MGPOTwice ryfeg179Ofwi 2024 4:34pmComplies with drug therapyFerric Carboxymaltose (Injectafer) 100 mg iron/2 mL nilfxcytBchemt567AHVZS7K7Swom 2024 4:08pmUnknownFurosemide 40 mg tabletActive0.ROUTE.NFITVLV34Chhhbn 2024 2:55pmTAKE 1 TABLET BY MOUTH EVERY DAYComplies with drug therapySimvastatin 20 mg xnzyfgZqppapnsgnee16WHTTYxtusgdFoubsvhw 22nd, 2022 1:00amAugust 2023 2:11pmMetoprolol Tartrate 50 mg coiveoUdrthvzuwdek43CDEUEivbj dailyDece2021 1:00amAugust 2023 2:11pmAspirin 81 mg MyzrcsQvjiacxrtlvt05OHWF DailyDecemb2021 1:00amJanuary 2022 11:01amOn Hold: Resume on 06/26/22. Hold this until after your abdominal aortic aneurysm is treated. Albuterol Sulfate 90 mcg/actuation HFA aerosol xdhrakoFdeupomztbun6NCIE INHALATIONThree times daily as needed for Shortness Of BreathDe2021 1:00amMay 2023 11:04amFolic Acid 1 mg ycecksYlpnaexruwds4767ZWVSKHdute0710 May 22, 2022 1:00amJanuary 2022 11:02amCyanocobalamin (Vitamin B- 12) 1,000 mcg xykkozzGbygdzbhlfox1910EIBHMMavse2192Zbpygfrd 2021 1:00am June 21, 2022 11:02amQuetiapine 25 mg vchepdZxbezxpiuqfp14YVGHZwgfp at bedtimeHiy 2024 12:00amJune 2024 4:02pmRivastigmine (Exelon Patch) 4.6 mg/24 hour patch 24 hourDiscontinued4.6MGTRANSDERMLDailyMay 2024 12:00amOctober 2024 2:29pmSulfamethoxazole-Trimethoprim 800-160 mg tablet Byjokdbkoupx2CAZSSVsjerPgi 2024 12:00amJune 2024 4:02pmFolic Acid 1 mg qqusfnJfixbzueeoyn3691KUXIFRmgmy at bedtimeJanuary 2022 11:02amMay 2023 11:05amCyanocobalamin (Vitamin B-12) 1,000 mcg capsuleDiscontinued 1000MCGPODaily at bedtimeJanuary 2022 11:02amMay 2023 11:04amInulin (Fiber Gummies) 2 gram tablet,lttiqgytNbxbbp0HEVZHbobyOdbxzl 2023 12:00am Complies with drug therapyAmlodipine 5 mg sbfjavWlgsifibcavk1HLVZDbqpmFlqugi 2023 12:00amAugust 2023 2:59pmAtorvastatin 80 mg DsshxaEyppdj63FQRW Every sqcmzqp1566Rtupaz 2023 12:00amComplies with drug therapyTicagrelor (Brilinta) 90 mg RdlenvCrjkothztjvf12SQAUDdist gmcgr49351Pxxldw 2023 12:00amMarch 2024 10:30amNitroglycerin 0.4 mg tablet, sublingualActive0.4 JDFDGUUISZCGH7D as needed for chest gjks1420Vdtqlb 2023 12:00amuntil response; do not exceed 3 doses per eventComplies with drug therapyApixaban (Eliquis) 2.5 mg TabletDiscontinued2.5MGPOTwice brcvc8189Tfdygd 2023 12:00amMarch 2024 10:29amAmiodarone 200 mg WnxufuHpaooltkbmvx131VZXCOqdkf qzeqd9447Poipdq 2023 12:00amOctober 2023 12:52pmAripiprazole 2 mg bjixxyRvgrmbrrkhgg7OVIXEbh 2024 12:00amMay 2024 12:28pmFurosemide (Lasix) 40 mg qrznmqBheecxrgjpdd72GWOHXaxcr22Srexmzeds 2023 12:00am May 03, 2024 10:57amAmiodarone 200 mg ozoyopFnrnxu388PQXPAqeblAqyowfg 2023 12:51pmComplies with drug therapyPotassium Chloride (Klor-Con M20) 20 mEq tablet,ER particles/crystalsDiscontinuedMEQPOOctober 2023 12:00amMarch 2024 10:33amDoxycycline Hyclate 100 mg kcvzqvpSmojljxmxoje502HCYKWvgxh caplr3717Eewxptk 14th, 2024 12:00amMarch 2024 10:30amBenzonatate 100 mg botphpmQzjgxtcaibwr428RGPGOqvmp times ajjgs603Ovrzqwa 14th, 2024 12:00amMarch 2024 10:30amPotassium Chloride (Klor-Con M20) 20 mEq tablet,ER particles/qlrykvlaWngwqcigrftf64MOKLRPszfiNpazl 2024 10:30amJune 2024 4:02pmPotassium Chloride (Klor-Con M20) 20 mEq tablet,ER particles/crystals Kmnfig45LZVATZldgwYwmc 2024 3:58pmComplies with drug therapyQuetiapine 25 mg pwsmvwEakysw70EYRVNybipDriplyg 2024 12:00amComplies with drug therapy Multivitamin wozbvkPppakr4BJEOZBbgpzXdw 2023 12:00amComplies with drug therapySpironolactone 25 mg kcjsljQmfhjssaftqf44KOROWdcppOuk 2023 12:00am January 23, 2024 2:59pmAmlodipine 5 mg faeqfjActagbfjzspl8DTREVfolv dailyHiy 2023 12:00amJune 2023 9:36amAspirin (Adult Low Dose Aspirin) 81 mg tablet,delayed release (DR/EC)Fwpmmprcqrxm64ZPDDNkiduIxh 2023 12:00am January 23, 2024 2:59pmFerrous Sulfate 142 mg (45 mg iron) tablet extended vxoycpiOabrtgtygmgh438DXMJIzmlnImz 2023 12:00amMarch 2024 10:37am Albuterol Sulfate 90 mcg/actuation HFA aerosol oahwcxcLewdjq1NJDEKISIVUTWFMAmnpn 6 hours as needed for shortness of breath or wheezingHiy 2023 12:00am Complies with drug therapyClopidogrel 75 mg scsoflGolmeg78QTXLBqdziZswve 2024 12:00amComplies with drug therapyMetoprolol Succinate 25 mg tablet extended release 24 sdCvtjna88WAHOStzhsDzufr 2024 12:00amComplies with drug therapy Warfarin 2 mg thrlxwTtrqqa3NUKCKojwiOwwuz 2024 12:00amComplies with drug therapyMethimazole 5 mg nwawlrZwauil5QZZFPxbnv dailyDay[facility] 2024 12:00am Complies with drug therapyFerrous Sulfate 325 mg (65 mg iron) tabletDiscontinued 325MGPOTwice xdnnr549Bkqct 2024 12:00amJuly 2024 4:35pmCephalexin 250 mg gdgfgjyFplkqc543YSEF4 Times a weekC[facility] Hospitale 2024 12:00amComplies with drug therapyAripiprazole 5 mg evphhzRzzauufbjvhp0DZBLGvzgqFiez 2024 12:00am March 09, 2025 2:28pmDonepezil 10 mg lbnnjtNueamm76IVBALhxsq at bedtimeCone Health [facility] Hospitale 2024 12:00amComplies with drug therapy Immunizations Immunization Event Date Not Given Reason Dose Number Mobile Patrol Officer Lot Number Vaccine Information Statement (VIS) Detail Administration Location COVID-19 Cristal Mckeon ([facility]) July 07, 2020 COVID-19 mRNA, Comirnaty (Pfizer)July 28OVID-19 mRNA, Comirnaty (Pfizer)February 21OVID-19 mRNA, Comirnaty (Pfizer)October 03, 2021 COVID-19 mRNA Bivalent Booster (Pfizer)March 29, 2022 Medical Equipment Device Date Implanted Device Details CL STENT JERZY FRONTIER 3.0 X 38 January 15 Multiple peripheral artery stent, bare-metalMay 2024UDI: [id number] Issuing Agency: [facility] Device Id: [id number] Expiration Date: 2026-09-28 Lot Number: [id number] peripheral artery stent, bare-metalMay 2024 RACHAEL: [id number] Issuing Agency: [facility] Device Id: [id number] Expiration Date: 2025-12-10 Lot Number: [id number] aorta endovascular stent-graftFebruary 2022 RACHAEL: [id number] Issuing Agency: [facility] Device Id: [id number] Expiration Date: 2024-05-13 Serial Number: [id number] aorta endovascular stent-graftFebruary 2022UDI: [id number] Issuing Agency: [facility] Device Id: [id number] Expiration Date: 2023-08-15 Serial Number: [id number] aorta endovascular stent-graftFebruary 2022UDI: [id number] Issuing Agency: [facility] Device Id: [id number] Expiration Date: 2023-10-08 Serial Number: [id number]-[id number]/mesh anchor, non-bioabsorbableFebruary 2022UDI: [id number] Issuing Agency: [facility] Device Id: [id number] Expiration Date: 2024-05-01 Lot Number: [id number] Relevant Diagnostic Tests and/or Laboratory Data Laboratory Results Test Collection Date/Time Result Date/Time Result Interpretation Reference Range Result Comment Performing Site Urine Random Creatinine February 28, 2025 11:34am February 28, 2025 11:34am 16.47 mg/dL Below low normal 20.00-300.00 25-Hydroxy Vitamin D TotalOct2024 11:57amOct2024 11:57am56.8 ng/mL<20 ng/mL Vit D lkncewiic66-<30 ng/mL Vit D trjmcnbnvqxi97-499 ng/mL Vit D sufficient>100 ng/mL Potential ToxicityFerritinOct2024 11:57am59.0 ng/mL26.0-388.0Parathyroid Hormone (Intact)February 28, 2025 11:57amOct2024 11:57am69 pg/mLAbnormal (applies to non-numeric results)15-65Performed at: [facility] [address] [place], [place] [id number] Director: Morgan Carpenter PhD, Phone: [phone] 2024 11:57amOct2024 11:57am38.4 %Below low hvmiud57.0-54.0Iron SaturationOct2024 11:57amOct2024 11:57am9.6 %Magnesium LevelOct2024 11:57am February 28, 2025 11:57am2.3 mg/dL1.8-2.4Uric AcidOct2024 11:57am February 28, 2025 11:57am6.5 mg/dL3.5-7.2Anion GapFebruary 28, 2025 11:57am February 28, 2025 11:57am12.9Vitamin B12 LevelOctober 2024 11:57amOct2024 11:72mo832 pg/uF298-5008Rgkmthevi at: [facility] [place], [place] [id number] Director: Morgan Carpenter PhD, Phone: [phone] FolateOctober 2024 11:57amOctober 2024 11:57am>20.0 ng/mL>3.0A serum folate concentration of less than 3.1 ng/mL isconsidered to represent clinical deficiency.Performed at: [facility] [address] [place], [place] [id number] Director: Morgan Carpenter PhD, Phone: [phone] Protein/Creatinine RatioOct2024 11:34amOctober 2024 11:34am0.47 HemoglobinOctober 2024 11:57amOctober 2024 11:57am11.6 g/dLBelow low nwbxbo50.0-18.0Iron LevelOct2024 11:57amOctober 2024 11:57am29.0 ug/dLBelow low lyarkd55.0-175.0AlbuminOctober 2024 11:57amOctober 2024 11:57am3.8 g/dL3.4-5.0Urine Random Total ProteinOctober 2024 11:34amOctober 2024 11:34am7.7 mg/dL<=11.9Mean Corpuscular HemoglobinOct2024 11:57amOctober 2024 11:57am26.6 pg25.9-34.0Total Iron Binding Capacity February 28, 2025 11:57amOctober 2024 11:34rt848.0 ug/dL250.0-450.0 BUN/Creatinine RatioOct2024 11:57amOctober 2024 11:57am13.7Mean Corpuscular Hemoglobin ConcentOct2024 11:57amOctober 2024 11:57am 30.2 g/dL29.9-35.2Blood Urea NitrogenOct2024 11:57amOctober 2024 11:57am31.0 mg/dLAbove high normal7.0-18.0Mean Corpuscular VolumeOctober 2024 11:57amOctober 2024 11:57am88.1 fL80.0-94.0Calcium LevelOctober 2024 11:57amOctober 2024 11:57am8.6 mg/dL8.5-10.1Mean Platelet Volume February 28, 2025 11:57amOctober 2024 11:57am10.0 fL9.5-13.5Chloride Level February 28, 2025 11:57amOctober 2024 11:52zl437 mmol/LAbove high normal 98-107Platelet CountOctober 2024 11:57amOctober 2024 11:37wz532 10 3/jJ463-810Mvafes Dioxide LevelOctober 2024 11:57amOctober 2024 11:57am27.9 mmol/L21.0-32.0Red Blood CountOctober 2024 11:57amOctober 2024 11:57am4.36 10 6/uLBelow low normal4.70-6.10CreatinineOctober 2024 11:57amOctober 2024 11:57am2.27 mg/dLAbove high normal0.70-1.30Red Cell Distribution WidthOctober 2024 11:57amOctober 2024 11:57am15.7 %Above high .0-15.0Estimated GFR ()February 28, 2025 11:57am February 28, 2025 11:96qn76Movko low normal>=60 mL/min/1.73m 2Corrected White Blood CountOctober 2024 11:57amOctober 2024 11:57am7.1 10 3/uL4.0-11.0 Estimated GFR (Non- AmericanOctober 2024 11:57amOctober 2024 11:84di68Bwyin low normal>=60 mL/min/1.73m 2Glucose LevelOctober 2024 11:57amOctober 2024 11:14iu636 mg/pV45-877Wgpturkvm LevelOctober 2024 11:57amOctober 2024 11:57am3.8 mmol/L3.5-5.1Sodium LevelOctober 2024 11:57amOctober 2024 11:59jv698 mmol/Q067-234Pmxlhwatpe LevelOct2024 11:57amOctober 2024 11:57am3.1 mg/dL2.6-4.7 Vital Signs Vital Reading Result Reference Range Collection Date/Time Height 74 [in_i] March 09, 2025 2:49qaCtyghg02.20 kgOct2024 2:24pmHeart Rate60 /obm83-484Bjpdzwr 15th, 2025 2:24pmRespiratory rate16 /rzv09-87Xavsqxi 2024 2:24pmOxygen saturation by Pulse uawobibh91 %95-100Oct2024 2:24pmBP Ijtpysos695 mm[Hg]100-140Oct2024 2:24pmBP Rtaqskivu03 mm[Hg] 60-100Octl[facility] 20[facility] 2:24pmBMI (Body Mass Index)24.7 kg/d9Wgndfcx2024 2:24pm Advance Directives Advance Directive Response Recorded Date/ Time Advance Directives No April 11:36am Insurance Providers Guarantor Bebeto Meño Monica Address [address] [place] [id number] Info.Home Phone: Payer Policy Id Subscriber's Name Subscriber Id Effectiv e Date Expiration Date [facility] [id number] Bebeto Wilder Anderson [id number] Meño [id number] Encounters Encounter Location(s) Arrival/Admit Date Discharge/Depart Date Provider(s) Non-patient / Non-visit -[facility] O ctober 2024 11:57am BURKE Billseparted Physician/Provider [facility] 2:22pmOctober 2024 2:55pmCelia Griffin MD Recent Diagnosis Onset Date Admit Date Abdominal aortic aneurysm without rupture Unknow n March 09, 2025 2:22pm Anemia Unknown March 09 2:22pm CHF (congestive heart failure) Unknown O ctober 2024 2:22pm Chronic kidney disease, stage 3b Unknown March 09, 2025 2:22pm Hyperlipidemia Unknown March 09 2:22pm Hypertensive nephropathy Unknown March 09, 2025 2:22pm Hypokalemia Unknown March 09 2:22pm Iron deficiency Unknown March 09 2:22pm Obstructive nephropathy Unknown March 09, 2025 2:22pm Assessments Diagnosis Onset Date Resolution Status Admit Date Abdominal aortic aneurysm without ruptur e acuteOctober 2024 2:22pmAnemiaacuteOctober 2024 2:22pmCHF (congestive heart failure)acuteOctober 2024 2:22pmChronic kidney disease, stage 3bacuteOctober 2024 2:22pmHyperlipidemiaacuteOctober 2024 2:22pmHypertensive nephropathyacuteOctober 2024 2:22pmHypokalemiaacute March 09, 2025 2:22pmIron deficiencyacuteOctober 2024 2:22pm Obstructive nephropathyacuteOctober 2024 2:22pm Plan of Treatment Author Celia StarksOhio State East HospitalAuthoredOctober 2024 2:45pmPatient likely has 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 Pt still has chronic zapien cath and follows with urology clinic for change monthly. Baseline creatinine around 2.0-2.2 mg/dL while on Lasix. .Blood pressures is well controlled .Not on BP medications. volume status is well controlled this visit. On lasix 40 mg daily. I asked the patient to stay away from NSAIDs . I will follow-up with the patient in 4-6 months Patient was admitted to the hospital in 2021 with severe ANUPAMA. BUN peaked at 129 and creatinine 8.5 g deciliter.Patient was found to have bilateral hydroureteronephrosis along with bladder mass. Kidney function improved without needing dialysis after placing Zapien catheter. Patient is status post TURP . Patient follows with Dr. Samuels.continues to have Zapien cath BP is currently not taking any blood pressure medications. Blood pressure is well-controlled. Edema improved with adding Lasix 40 mg PO daily for legs edema. asked the patient to monitor Bp at home and to follow low Na diet. Patient was accidentally found to have large fusiform AAA during hospitalization. Status post stent placement in June 2022. Patient is on statin. Hyperlipidemia control might help in slowing CKD progression Iron saturation is 9% . Hgb is up to 11.6 g/dl. Folate and VB12 levels are normal. Will continue oral ferrous sulfate 340 mg PO BID Hemoglobin is improvig Will continue iron supplement . No need for SARAI Patient had acute WA and was admitted to [facility] December 2023 and had PCI of his LAD. Ejection fraction was low down to 30%. Patient is currently on Lasix 40 mg once daily. Patient follows with Dr. Stokes in cardiology office. I instructed the to monitor blood pressure closely while on diuretics. I advised him to follow strict low-salt diet and fluid restriction of 40 ounces daily. Continue KCl daily. K is WNL Future Tests Future scheduled test information is unavailable Pending Tests Test Name Ordered Date Scheduled Date Renal Function Panel March 09, 2025 2:47pm 4 Months Future Visits Future appointment information is unavailable Referrals to Other Providers Referral information is unavailable Future Procedures Procedure Name Ordered Date Scheduled Date Hemogram CBC Without Diff March 09, 2025 2:4 7pm 4 Months Iron and TIBC Profile March 09, 2025 2:47pm 4 Months Ferritin March 09, 2025 2:47pm 4 [place] hs Protein Creat Ratio Ur Random March 09, 2025 2:47pm 4 Months Parathyroid Hormone Intact March 09, 2025 2: 47pm 4 Months Uric Acid March 09, 2025 2:47pm 4 [place] hs Vitamin D 25 Hydroxy Total March 09, 2025 2: 47pm 4 Months Future Medications Future medication information is unavailable Patient Instructions Patient instructions are unavailable
--- OUTSIDE RECORDS SUMMARY | 2025-03-18 08:06 | XMS_ITS | Encounter Summary ---
Author Organization [facility] Address [address] [place] [address] Phone Care Team Providers Care Icu Staff Nurse Name Role Phone Stanley Toledo MD Primary Care Provider Ruby Vickers MD Unavailable Encounter Details DateTypeDepartmentCare Team (Latest Contact Info)Wblboisawai19/23/2025Telephone [address] [phone] Elaine De Luna RN Social History Tobacco UseTypesPacks/DayYears UsedDateSmoking Tobacco: FormerCigarettes Smokeless Tobacco: NeverAlcohol UseStandard Drinks/WeekCommentsNever0 (1 standard drink = 0.6 oz pure alcohol)Sex and Gender InformationValueDate RecordedSex Assigned at BirthNot on fileLegal AhwXxtc30/29/2022 5:17 PM EST Gender IdentityNot on fileSexual OrientationNot on filedocumented as of this encounter Miscellaneous Notes * Telephone Encounter - Elaine De Luna RN - 03/17/2025 10:19 AM EDT phones inquiring if we have received the results from PFT and CXR. Will obtain records from [facility] for chest xray. She is wanting to make sure everything is in chart for upcoming visit. documented in this encounter Plan of Treatment DateTypeDepartmentCare Team (Latest Contact Info)Frsnebkgglf37/04/2025 11:00 AM ESTOffice Visit [address] [phone] Teo Stokes MD [address] [facility] [address] [place], [place] [id number] documented as of this encounter Visit Diagnoses Not on filedocumented in this encounter Additional Health Concerns AssessmentNoted TimeA fall risk assessment has been completed for the patient 09/10/2024 9:37 AM EDTdocumented as of this encounter Care Teams Team MemberRelationshipSpecialtyStart DateEnd Date Stanley Toledo MD [address] [place] [phone] PCP - Bqkxsiw20/23/22 Ruby Vickers MD [address] [facility], [address] [place] [address] CardiologistElectrophysiology10/04/24documented as of this encounter
--- OUTSIDE RECORDS SUMMARY | 2025-03-18 08:06 | XMS_ITS | Clinical Summary ---
Author Organization [facility] Address [address] 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 Name Role Phone Stanley Toledo MD Primary Care Provider [phone] Rbuy Vickers MD Unavailable Allergies No known active allergies Medications MedicationSigDispense QuantityRefillsLast FilledStart DateEnd DateStatus albuterol 90 mcg/actuation inhaler Inhale 2 puffs every 4 hours if needed.12/17/2022ctive ferrous sulfate, 325 mg ferrous sulfate, tablet Take 1 tablet (325 mg) by mouth once daily with breakfast.Active multivitamin (Multiple Vitamins) tablet Take 1 tablet by mouth once daily.Active nitroglycerin (Nitrostat) 0.[address] 1 tablet (0.4 mg) under the tongue every 5 minutes if needed for chest pain.Active furosemide (Lasix) 40 mg tablet Take 1 tablet (40 mg) by mouth once daily.02/04/2024ctive warfarin (Coumadin) 5 mg tablet Indications:Paroxysmal atrial fibrillation (Multi)Take one tablet daily in the evening. Follow with [facility]. Patient will take coumadin and eliquis together for 3 days only 14 tablet 03/05/2024ctive metoprolol succinate XL (Toprol-XL) 25 mg 24 hr tablet Indications:Cardiomyopathy, ischemicTake 1 tablet (25 mg) by mouth once daily. Do not crush or chew. 90 tablet /20230527/5Active methIMAzole (Tapazole) 5 mg tablet Indications:High risk medication use,HyperthyroidismTake 1 tablet (5 mg) by mouth 2 times a day. 180 tablet 506Active QUEtiapine (SEROquel) 25 mg tablet Take 1 tablet (25 mg) by mouth once daily at bedtime.5Active rivastigmine (Exelon) 4.6 mg/[address] 1 patch on the skin once daily.5Active enoxaparin (Lovenox) 100 mg/mL syringe Indications:Cardiomyopathy, ischemic,S/P PTCA (percutaneous transluminal coronary angioplasty),Paroxysmal atrial fibrillation (Multi)Inject 1 mL (100 mg) under the skin every 12 hours. STOP Warfarin 3 days prior to procedure. 2 days prior, inject one syringe into the abdomen in the morning, and again in the evening. 1 day prior inject one syringe into the abdomen in the morning ONLY. None the night prior. None in the morning of the procedure. 3 each 5Active amiodarone (Pacerone) 200 mg tablet Indications:Paroxysmal atrial fibrillation (Multi)TAKE 1 TABLET BY MOUTH EVERY DAY 90 tablet 5Active clopidogrel (Plavix) 75 mg tablet Indications: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 of cabazon heart without angina pectorisTake 1 tablet (75 mg) by mouth once daily. 90 tablet 5Active atorvastatin (Lipitor) 80 mg tablet Indications:HyperthyroidismTake 1 tablet (80 mg) by mouth once daily at bedtime. 90 tablet 506Active Klor-Con M20 20 mEq ER tablet Indications:HypokalemiaTAKE 1 TABLET BY MOUTH ONCE DAILY. DO NOT CRUSH OR CHEW. 90 tablet 5Active Active Problems ProblemNoted DateDiagnosed DateBody mass index (BMI) 25.0-25.9, adult10/08/2024 Encounter for medication review and qtitumygwp08/16/2025Encounter to discuss test zimicxm5810/08/2024Encounter to discuss treatment giatpzl6610/08/2024Encounter to establish care with new /16/2025Ventricular ectopy/arrhythmia, pre- operative cardiovascular exam10/08/2024S/P PTCA (percutaneous transluminal coronary angioplasty)02/10/2024oronary artery disease involving cabazon coronary artery of cabazon heart without angina lpwufrze41/17/2024aroxysmal atrial /17/2024Former ikebxm1602/10/2024High risk medication use02/10/2024 STEMI (ST elevation myocardial infarction)02/10/2024ardiomyopathy, ischemic 02/10/20243272Jqitosjfzcrw97/18/2024Essential ckikrjndiazq73/18/2024Stage 3a chronic kidney ksyfose6005/12/2023bdominal aortic aneurysm (AAA) greater than 5.5 cm in diameter in male11/11/2022Urinary bladder qsqrammp45/19/2023Transient cerebral ischemic zazudw1005/16/2022 Resolved Problems ProblemNoted DateDiagnosed DateResolved DateBMI 26.0-26.9,adult02/10/2024 10/08/2024 Encounters DateTypeDepartmentCare UejjMdrpoyswrtu42/23/2025Telephone [address] [place] [address] Elaine De Luna RN 02/28/2025Scanned Document [facility] [address] [place] [address] Scanning, Generic Provider 02/02/2025Scanned Document [facility] [address] [place] [address] Scanning, Generic Provider 01/28/2025Ref[address] [place] [address] Teo Stokes MD Mafmwpkmehf64/05/[address]25[address] [address] Constantin Pruett, Hyperthyroidism (Primary Dx)01/02/2025[place] [address] [place] [address] Teo Stokes MD 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 of cabazon heart without angina pectorisfrom Last 3 Months Immunizations ImmunizationAdministration DatesNext DueFlu vaccine (IIV4), preservative free *Check age/dose*02/22/2021Flu vaccine, quadrivalent, high-dose, preservative free, age 65y+ (FLUZONE)03/06/2022Flu vaccine, quadrivalent, recombinant, preservative free, adult (FLUBLOK)02/22/2020Flu vaccine, trivalent, preservative free, HIGH-DOSE, age 65y+ (Fluzone)05/20/2022,02/14/2021Influenza, Seasonal, Quadrivalent, Bndvlaqrxj99/01/2023Influenza, seasonal, ccasbaupos03/22/2022 Pneumococcal polysaccharide vaccine, 23-valent, age 2 years and older (PNEUMOVAX 23)04/23/2021 Family History Medical HistoryRelationNameCommentsBrain cancerFatherbowel obstructionMother RelationNameStatusCommentsFatherMother Social History Tobacco UseTypesPacks/DayYears UsedDateSmoking Tobacco: FormerCigarettes Smokeless Tobacco: Never Tobacco Cessation:Counseling Given: Not Answered Alcohol UseStandard Drinks/WeekCommentsNever0 (1 standard drink = 0.6 oz pure alcohol)Sex and Gender InformationValueDate RecordedSex Assigned at BirthNot on fileLegal QzsAxbj59/29/2022 5:17 PM ESTGender IdentityNot on fileSexual OrientationNot on file Last Filed Vital Signs Vital SignReadingTime TakenCommentsBlood Ioawidqr38/58010/08/2024 2:43 PM EDT Bcnaz1226 2:43 PM EDTTemperature--Respiratory Rate--Oxygen Saturation-- Inhaled Oxygen Concentration--Rpnekd71.7 kg (200 lb)10/08/2024 2:43 PM EDTHeight 188 cm (6' 2 )10/08/2024 2:43 PM EDTBody Mass Index25.68010/08/2024 2:43 PM EDT Plan of Treatment DateTypeDepartmentCare Team (Latest Contact Info)Fdqqsohnfrk49/04/2025 11:00 AM ESTOffice Visit [facility] [address] [facility] [address] [place] [address] Teo Stokes MD [address] [facility] [address] [place] [address] Health MaintenanceDue DateLast DoneCommentsCreatinine Level1943Lipid Panel 1943Medicare Annual Wellness Visit (AWV)4Potassium Level 4Diabetes Veqdqsslj61/08/1962CKD: Urine Protein Pxofzomir93/08/1963 DTaP/Tdap/Td Vaccines (1 - Tdap)11/30/1965Zoster Vaccines (1 of 2)11/30/1993 Influenza Vaccine (#1), 03/26/2023, 05/20/2022, Additional history existsCOVID-19 Vaccine ( season), 02/16/2023, 03/29/2022, Additional history qfsqwyBpufshttezbqtb31/14/2026 08/06/2024, 01/16/2024, 05/16/2022TSH Level6010/02/2024Pneumococcal PhknmsaUzysgkaif27/03/2024, 04/23/2021SV High Risk: (Elderly (60+) or Population)Ahekwieto52/31/2025HIB VaccinesAged OutNo longer eligible based on patient's age to complete this topicHPV VaccinesAged OutNo longer eligible based on patient's age to complete this topicHepatitis A VaccinesAged OutNo longer eligible based on patient's age to complete this topicHepatitis B VaccinesAged OutNo longer eligible based on patient's age to complete this topicIPV Vaccines Aged OutNo longer eligible based on patient's age to complete this topic Meningococcal VaccineAged OutNo longer eligible based on patient's age to complete this topicRotavirus VaccinesAged OutNo longer eligible based on patient's age to complete this topic Procedures Procedure NamePriorityDate/TimeAssociated DiagnosisCommentsOUTSIDE LAB SCAN 02/02/2025 TRANSTHORACIC ECHO (TTE) YELYWEXWhfuzbs61/14/2025 12:[address] elevation myocardial infarction (STEMI), unspecified artery (Multi) Cardiomyopathy, ischemic 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 Authorizing ProviderResult TypeResult StatusGeneric Provider ScanningOUTSIDE SCANFinal Result * TRANSTHORACIC ECHO (TTE) LIMITED (08/06/2024 12:04 PM EDT)ComponentValueRef RangeTest MethodAnalysis TimePerformed AtPathologist SignatureAV mn lxpm2mcHc SYNGOAV pk vel1.38m/sSYNGOLV Biplane EF38%SYNGOLVOT diam2.23cmSYNGOMV E/A ratio0.70SYNGOMV avg E/e' ratio15.11SYNGOLV EF33%SYNGORV free wall pk S'12.40 cm/fPXNKJWPBD50.5ovZkKDWTETPREz4.46cmSYNGOAortic Valve Area by Continuity of Peak Velocity1.18ap6YYZWJZY pk kdrj3rwOnHOKAHEoszmd Valve Area by Continuity of VTI2.85bs9SQHJUEO A4C EF31.7SYNGOSpecimen (Source)Anatomical Location / LateralityCollection Method / VolumeCollection TimeReceived Time08/06/2024 10:43 AM EDT Narrative SYNGO - 08/11/2024 5:54 PM EDT ?[address], [address] [place] [address] ? TRANSTHORACIC ECHOCARDIOGRAM REPORT Patient Name: ? ALEX GRAJEDA ?Reading Physician: ?[id number] Mally ?Brian CASILLAS Study Date: ? 08/06/2024 ? Ordering Provider: ?[id number] CURRAN M ?STOKES MRN/PID: ?[id number] ?Fellow: Accession#: ? [id number] ?Nurse: Date of /Age: ??1945 / 78 years Neurosurgery Research Director: ?Marlyn Castro ?RDCS, RT(R), ?RDMS, RVT Gender Assigned at ??M ? Additional Staff: : Height: ? 187.96 cm ? Admit Date: Weight: ? 92.53 kg ?Admission Status: ? Outpatient BSA / BMI: ?2.19 m2 / 26.19 ? Department Location: ??[facility] Heart ?kg/m2 ? 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 infarction of unspecified site-I21.3 Indication: ?STEMI CPT Codes: ? Echo Limited-96869 Patient History: Smoker: ?Former. Pertinent History: A-Fib, HTN and PTCA ICM. Study Detail: The following Echo studies were performed: 2D and Doppler. PHYSICIAN INTERPRETATION: Left Ventricle: The left ventricular systolic function is moderately decreased, with a visually estimated ejection fraction of 30-35%. The left ventricular cavity size is normal. There is normal septal and normal posterior left ventricular wall thickness. Spectral Doppler shows a Grade I (impaired r elaxation pattern) of left ventricular diastolic filling with [...] structurally normal. The aortic valve dimensionless index is0.53. There is trace aortic valve regurgitation. The [...] structurally normal. The pulmonic valve regurgitation was notassessed. Pericardium: No pericardial effusion noted. Aorta: The [...] previous study. QUANTITATIVE DATA SUMMARY: 2D MEASUREMENTS: ? Normal Ranges: Ao Root s: ? 3.70 cm LAs: ? 3.85 cm ? (2.7-4.0cm) RVIDd: ? 2.60 cm ? (0.9-3.6cm) IVSd: ?0.88 cm ? (0.6-1.1cm) LVPWd: ? 0.70 cm ? (0.6-1.1cm) LVIDd: ? 5.46 cm ? (3.9-5.9cm) LVIDs: ? 3.36 cm LV Mass Index: ?? 70.8 g/m2 LVEDV Index: ? 74.58 ml/m2 LV % FS ?38.5 % LV SYSTOLIC FUNCTION: ? Normal Ranges: EF-A4C View: 32 % (>=55%) EF-A2C View: ?41 % EF-Biplane: ? 38 % EF-Visual: ?33 % LV EF Reported: 33 % LV DIASTOLIC FUNCTION: ? Normal Ranges: MV Peak E: ? 0.63 m/s ??(0.7-1.2 m/s) MV Peak A: ? 0.89 m/s ??(0.42-0.7 m/s) E/A Ratio: ? 0.70 ?(1.0-2.2) MV e' 0.041 m/s (>8.0) MV lateral e' ?0.05 m/s MV medial e' ? 0.04 m/s E/e' Ratio: 15.11 (<8.0) MITRAL VALVE: ?Normal Ranges: MV Vmax: 0.89 m/s (<=1.3m/s) MV peak P.2 mmHg (<5mmHg) MV mean P.5 mmHg (<48mmHg) MV VTI: ? 21.50 cm (10-13cm) MV DT: ?123 msec (150-240msec) MV PHT: ? 29 msec ??(30-60msec) MVA by PHT: ?? 7.59 cm2 (4-6cm2) AORTIC VALVE: ? Normal Ranges: AoV Vmax: 1.38 m/s (<=1.7m/s) AoV Peak P.6 mmHg (<20mmHg) AoV Mean PG: ? 4.0 mmHg (1.7-11.5mmHg) LVOT Max Patrice: 0.66 m/s (<=1.1m/s) AoV VTI: ? 28.25 cm (18-25cm) LVOT VTI: ?15.11 cm LVOT Diameter: ? 2.23 cm ??(1.8-2.4cm) AoV Area, VTI: ? 2.09 cm2 (2.5-5.5cm2) AoV Area,Vmax: ? 1.89 cm2 (2.5-4.5cm2) AoV Dimensionless Index: 0.53 AORTIC INSUFFICIENCY: AI Vmax: ? 3.62 m/s AI Half-time: ??927 msec AI Decel Time: 3197 msec AI Decel Rate: 119.71 cm/s2 RIGHT VENTRICLE: RV s' 0.12 m/s TRICUSPID VALVE/RVSP: ?Normal Ranges: Peak TR Velocity: ? 2.00 m/s Est. RA Pressure: ? 3 mmHg RV Syst Pressure: 19 mmHg (< 30mmHg) PULMONIC VALVE: ?Normal Ranges: PV Max Patrice: ? 0.6 m/s ??(0.6-0.9m/s) PV Max PG: ?1.6 mmHg [id number] Mally Torres MD Electronically signed on 08/11/2024 at 5:54:03 PM Final Procedure Note Mally Torres MD - 08/11/[address], [address], [place] [address] TRANSTHORACIC ECHOCARDIOGRAM REPORT Patient Name: ALEX Sawyer Physician: [id number] Rosales Study Date: 08/06/2024 Ordering Provider: [id number] ALYSSIA STOKES MRN/PID: [id number] Fellow: Nurse: Date of /Age: 7 1945 / 78 years Neurosurgery Research Director: Zeke BECERRACS,RT(R), RDMS, RVT Gender Assigned at M Additional Staff: : Height: 187.96 cm Admit Date: Weight: 92.53 kg Admission Status: Outpatient BSA / BMI: 2.19 m2 / 26.19 Department Location: [facility] kg/m2 [place] Blood Pressure: 98 /64 mmHg Study Type: TRANSTHORACIC ECHO (TTE) LIMITED Diagnosis/ICD: Atherosclerotic heart disease of cabazon coronary arterywithout angina pectoris-I25.10; ST elevation (STEMI) myocardial infarction of unspecified site-I21.3 Indication: STEMI CPT Codes: Echo Limited-87640 Patient History: Smoker: Former. Pertinent History: A-Fib, [...] 0.6 m/s (0.6-0.9m/s) PV Max P.6 mmHg [id number] Mally Torres MD Electronically signed on 08/11/2024 at 5:54:03 PM Final Authorizing ProviderResult TypeResult StatusTeo Stokes MDC ECHO PROCEDURESFinal ResultPerforming OrganizationAddressCity/State/ZIP CodePhone Number SYNGO from Last 3 Months or Most Recently Relevant to Health Maintenance Insurance Care Teams Team MemberRelationshipSpecialtyStart DateEnd Date Stanley Toledo MD [address] [place] [address] PCP - Bqqmude21/23/22 Ruby Vickers MD [address] [facility] [address], [address] [place] [address] CardiologistElectrophysiology10/04/24
--- OUTSIDE RECORDS SUMMARY | 2025-03-18 08:11 | XMS_ITS | CCD ---
Author Organization [facility] Care Team Providers Care Apparel Sales Associate Name Role Phone Stanley Emerson Unavailable Unavailable Unavailable STANLEY EMERSON Primary Care Physician Unavail able MD Stanley Emerson Primary Care Provider MD Taz Barnes Admit Provider MD Margarito Valentine Other Provider [phone] MD Janice Gonzalez Other Provider DO Bernabe Cr Attending Provider MD Margarito Valentine Attending Provider [phone] MD Margarito Valentine Admit Provider [phone] Celia Griffin Unavailable Margarito Valentine Unavailable MOMO Omalley Attending Provider MD Stanley Emerson Primary Care Provider MD Taz Barnes Admit Provider MD Margarito Valentine Other Provider MD Janice Gonzalez Other Provider DO Bernabe Cr Attending Provider MD Margarito Valentine Attending Provider [phone] MD Margarito Valentine Admit Provider MOMO Omalley Attending Provider Carlene Kasper Unavailable HEMEYER ., DR ANGEL Primary Care Unavailable SAMUELS ., DR MONTALVO Admitting Unavailable SAMUELS ., DR MONTALVO Attending Unavailable SAMUELS ., DR MONTALVO Consulting Unavailable Corky Ford Consulting Unavailable HEMEYER ., DR ANGEL Primary Care Unavailable SAMUELS ., DR MONTALVO Admitting Unavailable SAMUELS ., DR MONTALVO Attending Unavailable SAMUELS ., DR MONTALVO Consulting Unavailable OLAN, JAZZY Consulting Unavailable SURY II, ARCADIO Consulting Unavailable HEMEYER ., DR ANGEL Primary Care Unavailable BAKHOUS, AZIZ Admitting Unavailable BAKHOUS, AZIZ Attending Unavailable BAKHOUS, AZIZ Consulting Unavailable HEMEYER ., DR ANGEL Primary Care Unavailable BAKHOUS, AZIZ Admitting Unavailable BAKHOUS, AZIZ Attending Unavailable BAKHOUS, AZIZ Consulting Unavailable HEMEYER ., DR ANGEL Primary Care Unavailable HEMEYER ., DR ANGEL Attending Unavailable HEMEYER ., DR ANGEL Admvandana Unavailable HEMEYER ., DR ANGEL Consulting Unavailable ZIEBER, DR LORENZO Hall Consulting Unavailable HEMEYER ., DR ANGEL Primary Care Unavailable VANDA ., MARILYN Admitting Unavailable VANDA ., MARILYN Attending Unavailable VANDA ., MARILYN Consulting Unavailable HEMEYER ., DR ANGEL Primary Care Unavailable HAY ., DR GALEANO Admitting Unavailable HAY ., DR GALEANO Attending Unavailable HAY ., DR GALEANO Consulting Unavailable HEMEYER ., DR ANGEL Primary Care Unavailable ZIEBER, DR LORENZO Hall [...] Al, Dr. Teo Poon Referring Araceli vailable Luisyer, Dr. Stanley Mercado Primary Care Unava ilable [...] Attending Provider MD Teo Al Referring Provider [phone] MD Stanley Emerson Primary Care Provider MD Margarito Valentine Attending Provider MD Stanley Emerson Primary Care Provider MD Teo Al Attending Provider MD Willy Lambret Attending Provider DO Nas Pruett Admit Provider DO Nas Pruett Attending Provider MD Myesha Feliz Other Provider MD Rogelio Rai Other Provider WATSON Truong Other Provider DO Mckay Yeboah Jr Other Provider [phone] MD Ryley Hoyt Other Provider [phone] ROCIO Randle Other Provider Unavailable ROCIO Alvarez Other Provider Unavailable ROCIO Delgado Other Provider Unavailable ROCIO Rogel Other Provider Unavailable ROCIO Li Other Provider Unavailable MD Radha Berrios Other Provider DO Khanh Deluca Other Provider [phone] MD Ronald Martinez Other Provider [phone] DO Bernabe Cr Other Provider MD [...] Unavailable Stanley Emerson MD Primary Care Provider [phone] Stanley Emerson MD Unavailable [phone] Stanley Emerson MD Primary Care Provider Black RN CARDIAC CATH, Dora Unavailable WATSON Bailey Attending Provider [phone] WATSON Truong Other Provider [phone] Stanley Emerson MD Unavailable Stanley Emerson MD Primary Care Provider [phone] Stanley Emerson MD Unavailable [phone] Stanley Emerson MD Primary Care Provider Stanley Emerson MD Primary Care Provider [phone] Stanley Emerson MD Primary Care Provider Teo Al MD Attending Provider Blanca Boles Attending Unavailable Katia SAMUELS Attending Unavailable MOMO OMALLEY Attending Unavailab MOMO Kruger Attending Unavailab MOMO Kruger Attending Unavailab Katia Fong Admitting Unavailable Katia SAMUELS Attending Unavailable Fabi Gomez Attending Unavailable Zhang RN CARDIAC CATH, Joi Unavailable Unavailable Black RN CARDIAC CATH, Dora Unavailable Talya Bo MD Attending Provider Stanley Emerson MD Primary Care Provider [phone] Katia SAMUELS Attending Unavailable Fabi Gomez Attending Unavailable Elvi Blanca Jomar Attending Unavailable Blanca Bolse Attending Unavailable Fabi Gomez Attending Unavailable Katia SAMUELS Attending Unavailable Katia SAMUELS Admitting Unavailable Katia SAMUELS Attending Unavailable CHRISSY PLATA Referring Unavailable HEMECHERY, EDLUDY J Primary Care Unavailable RAFAELSERVANDO S Attending Unavailable HEMECHERY, EDLUDY J Primary Care Unavailable RAFAELSERVANDO S Admitting Unavailable SERVANDO HALL S Attending Unavailable FILI GANDARA Consulting Unavailable CAROLINA LEWIS Referring Unavailable FROY RAZO Consulting Unavailable GOLDY GARLAND Consulting Unavailable HEATHER ROMO Consulting Unavailable MORIS BARRAGAN Consulting Unavailable Ruby Montana MD Unavailable Robe Hansen DO Attending Provider [phone] TEO AL Referring Unavailable IDANIA, STANLEY Rich Primary Care Unavailable RUBY MONTANA Admitting Unavailable RUBY MONTANA Attending Unavailable IDANIA, STANLEY Rich Primary Care Unavailable ALTEO M Attending Unavailable STANLEY EMERSON Primary Care Unavailable TEO AL M Referring Unavailable HEMECHEYR, STANLEY Rich Primary Care Unavailable TEO AL [...] Unavailable Stanley Emerson MD Primary Care Provider Margarito Valentine MD Attending Provider Joi Zhang [...] Consulting Unavailable Basilio Tam Consulting Unavailable Reji aGrcia Consulting Unavailable Lydia Rene Consulting Unavailable Lucas [...] Attending Unavailable IDANIA, STANLEY Rich Attending Unavailable HEMEYER, STANLEY Rich Attending Unavailable Fabi Gomez Attending Unavailable MOMO OMALLEY Attending UnavailKatia Saldana Admitting Unavailable Katia SAMUELS Attending Unavailable Katia SAMUELS Attending Unavailable Eboni Anderson Attending Unavailable Stanley Emerson MD Primary Care Provider [phone] Celia Griffin MD Attending Provider Blanca Boles Attending Unavailable Eboni Anderson Attending Unavailable OrBlanca parra Attending Unavailable OrBlanca parra Attending Unavailable Eboni Anderson Attending Unavailable Allergies Allergy ClassificationReported Allergen(s)Allergy TypeDate of OnsetReaction(s) Facility (4 sources)No Known Medication Allergies; Translations: [No Known Medication Allergies]Propensity to adverse reactions (disorder)[facility] Rep[facility] Medications Current Medications MedicationDrug Class(es)DatesSig (Normalized)Sig (Original)Acetaminophen (4 sources)Start: 10-67-3028zviekraeqglyf (TYLENOL) tablet 650 mgtake 2 tablets by mouth every eight hoursAcetaminophen ER 650 MG 2 tablets as needed Orally every 8 hrs Activeacetaminophen 325 mg / HYDROcodone bitartrate 7.5 mg oral tablet (2 sources)Opioid AgonistStart: 40-63-0467bvik 1 tablet by mouth once, then take 1 tablet by mouth every hourNorco 325 mg-7.5 mg oral tablet 1 tab(s), Oral, Once, 1 tab(s), Refill(s) 0, Take 1 hour prior to procedure, [facility]/pharmacy #[id number], 187, cm, 03/11/23 13:44:00 EDT, Height/Length Dosing, 93, kg, 03/11/2313:44:00 EDT, Weight Dosing Start Date: 05/06/23 Status: [id number] 200 actuat albuterol 0.09 mg/actuat metered dose inhaler (20 sources)beta2-Adrenergic AgonistStart: 42-24-8914pwpw 2 puff(s) by inhalation every six hours as needed for wheezingalbuterol sulfate HFA (PROVENTIL;VENTOLIN;PROAIR) 108 (90 Base) MCG/ACT inhaler Inhale 2 puffs intothe lungs every 6 hours as needed for Wheezing or Shortness of Breath 18 g 10/05/2024 ActiveStart: .5 mg, Nebulization, EVERY 6 HOURS PRN, Starting on 10/02/24 at 1102, Until Discontinued, Wheezing, Initiate RT Bronchodilator Protocol: Yes - Inpatient ProtocolStart: 57-18-4721cayl 1 puff(s) by inhalation every six hours as needed for wheezingAlbuterol Sulfate 90 mcg/actuation HFA aerosol inhaler Active 2 PUFF INHALATION Every 6 hours as nee ded for shortness of breath or wheezing October 22, 2023 12:00am Complies with drug therapyStart: 09-30-2023 End: 58-87-3369lfsb 2 puff(s) by inhalation every six hours for wheezing albuterol HFA 90 mcg/act inhaler Indications: Simple chronic bronchitis (HCC) Inhale 2 puffs every 6 (six) hours if needed for wheezing 54 g 1 09/30/2023 ActiveStart: 04-74-4290shzo 2 puff(s) by inhalation every four hoursalbuterol 90 mcg/actuation inhaler Inhale 2 puffs every 4 hours if needed. 12/17/2022 Active Start: 73-48-2349Kgwggyyfz Sulfate HFA 108 (90 Base) MCG/ACT Inhalation Aerosol Solution Quantity: 54 Refills: 0 Ordered: 03-Jun-2022 DO Start : 03-Jun-2022 ActiveStart: 05-16-2022 End: 45-49-3875fmpm 1 puff(s) by inhalation three times daily as neededAlbuterol Sulfate 90 mcg/actuation HFA aerosol inhaler Discontinued 2 PUFF INHALATION Three times daily as needed for Shortness Of Breath May 16, 2022 1:00am October 22, 2023 11:04amtake 2 puff(s) by inhalation every four hours as needed Albuterol Sulfate HFA 108 (90 Base) MCG/ACT 2 puffs as needed Inhalation every 4 hrs Activetake 2 puff(s) by inhalation every four hours as neededAlbuterol Sulfate HFA 108 (90 Base) MCG/ACT 2 puffs as needed Inhalation every 4 hrs ActiveAlbuterol (Eqv-ProAir HFA) 90 mcg/inh inhalation aerosol (20 sources)Start: 75-24-4663Mihgpaxqz (Eqv-ProAir HFA) 90 mcg/inh inhalation aerosol Refill(s) 0 Start Date: 06/10/22 Status: Ordered Repeat number: 1Start: 92-36-0984Qoueqdwpe (Eqv-ProAir HFA) 90 mcg/inh inhalation aerosol Refill(s) 0 Start Date: 06/10/22 Status: Orderedamiodarone hydrochloride 200 mg oral tablet (20 sources)AntiarrhythmicStart: 02-10-2024 End: 10-39-0976lruqoewwxm 200 mg Tab 200 mg = 1 tab(s), Refills(s) 0 Start Date: 04/06/24 Status: Ordered Repeat number: 1Start: 01-23-2024 End: 73-77-6629hxpl 1 tablet by mouth twice dailyAmiodarone 200 mg Tablet Discontinued 200 MG PO Twice daily January 23, 2024 12:00am 2023 12:52pmamLODIPine 5 mg oral tablet (20 sources)Dihydropyridine Calcium Channel BlockerStart: 88-99-2030smgz 5 mg by mouth twice dailyamlodipine 5 mg, Oral, BID, Refills(s) 0 Start Date: 04/06/24 Status: Ordered Repeat number: 1Start: 12-31-2023 End: 54-20-7661jbns 1 tablet by mouth once dailyAmlodipine 5 mg tablet Discontinued 5 MG PO Daily December 31, 2023 12:00am January 23, 2024 2:59pm Start: 06-10-2023 End: 92-96-1774rcxw 1 tablet by mouth twice dailyAmlodipine 5 mg tablet Discontinued 5 MG PO Twice daily October 22, 2023 12:00am November 14, 2023 9:36am Start: 02-14-0050tbwg 1 tablet by mouth every twelve hoursNorvasc 5 MG 1 tablet Orally bid for 90 days Mar, ActiveStart: 70-55-5169wmwx 1 tablet by mouth every twenty-four hoursNorvasc 5 MG 1 tablet Orally Once a day for 90 days Mar, Activeapixaban 2.5 mg oral tablet (20 sources)Factor Xa InhibitorStart: 01-23-2024 End: 31-24-2147Jccoiqi 2.5 mg oral tablet Refills(s) 0 Start Date: 04/06/24 Status: Ordered Repeat number: 1atorvastatin 80 mg oral tablet (20 sources)HMG-CoA Reductase InhibitorStart: 60-84-2520feuv 1 tablet by mouth once dailyatorvastatin 80 mg Tab 80 mg = 1 tab(s), Oral, Daily, # 30 tab(s), Refills(s) 0 Start Date: 03/02/24Status: Ordered Quantity: 30.0 Unit: tab(s) Repeat number: 1cephalexin 250 mg oral capsule (20 sources)Cephalosporin AntibacterialStart: 47-15-0958plww 1 capsule by mouth three times weeklyCephalexin 250 mg capsule Active 250 MG PO 3 Times a week November 03, 2024 12:00am Complies with drug therapyStart: 46-42-8535rnzi 1 capsule by mouth once dailyKeflex 500 mg Cap 500 mg = 1 cap(s), Oral, Daily, Take 1 capsule the day before the procedure and 1capsule after the procedure, # 2 cap(s), Refills(s) 0, Pharmacy: [facility]/pharmacy #[id number], 187, cm, 07/15/24 10:46:00 EST, Height/Length Dosing, 93, kg, 07/15/24 10:46:00 EST, Weight Dosing Start Date: 09/24/24 Status: Ordered Quantity: 2.0 Unit: cap(s) Repeat number: 1Start: 09-09-2024 End: 27-89-9282Mrfopp 250 mg Cap 250 mg = 1 cap(s), Oral, MonWedFri, X 30 day(s), # 13 cap(s), Refills(s) 11, Pharmacy: [facility]/pharmacy #[id number], 187, cm, 07/15/24 10:46:00 EST, Height/Length Dosing, 93, kg, 07/15/24 10:46:00 EST, Weight Dosing Start Date: 09/09/24 Stop Date: 09/04/25 Status: Ordered Quantity: 13.0 Unit:cap(s) Repeat number: 12Start: 87-27-5950zjlj 1 capsule by mouth once dailyKeflex 250 mg Cap 250 mg = 1 cap(s), Oral, Daily, # 30 cap(s), Refills(s) 1, Pharmacy: [facility]/pharmacy#[id number], 187, cm, 07/15/24 10:46:00 EST, Height/Length Dosing, 93, kg, 07/15/24 10:46:00 EST, Weight Dosing Start Date: 07/15/24 Status: OrderedStart: 06-22-2024 End: 96-04-3406undp 1 capsule by mouth in the morningcephalexin (Keflex) 250 mg capsule Take 1 capsule (250 mg) by mouth early in the morning.. 07/18/2024 10/08/2024 Discontinued (Med List Cleanup)Start: 04-28-2024 End: 23-25-6676jjwr 1 capsule by mouth in the morning, then take 1 capsule by mouth in the evening, then take 1 capsule by mouth at bedtimecephalexin (Keflex) 500 MG capsule Take 500 mg by mouth in the morning and 500 mg in the evening and 500 mg before bedtime. 04/28/2024 05/13/2024 Discontinued (Therapy completed) Start: 36-47-8486lhww 1 mg by mouth every twelve hoursKeflex 500 mg Cap mg cap(s), Oral, q12hr, Refills(s) 0 Start Date: 10/03/23 Status: Ordered End: 14-29-4867bjku 1 capsule by mouth three times dailycephalexin (Keflex) 500 mg capsule Take 1 capsule (500 mg) by mouth 3 times a day. 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 Patient will take 4 tablets ( 300mg) one time only, then will take one tablet daily 90 tablet 3 03/05/2024 Activedonepezil hydrochloride 10 mg oral tablet (16 sources)Start: 11-19-2024 End: 46-90-0794psga 2 tablets by mouth at bedtimedonepezil (Aricept) 10 MG tablet Indications: 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 disturbance, psychotic disturbance, mood disturbance, or anxiety (HCC) Take 2 tablets (20 mg) by mouth at bedtime 11/19/2024 05/18/2025 ActiveStart: 10-22-2024 End: 98-06-1374dgtb 1 tablet by mouth once daily at bedtimedonepezil 10 mg Tab 10 mg = 1 tab(s), Oral, Once a day (at bedtime) Start Date: 11/16/24 Status: [place] red Repeat number: 11 ml enoxaparin sodium 100 mg/ml prefilled syringe (1 source)Low Molecular Weight HeparinStart: 10-03-1321sgrfbezfvw (Lovenox) 100 mg/mL syringe Indications: Cardiomyopathy, ischemic [...] morning of the procedure. 3 each 10/08/2024 ActiveFerric Carboxymaltose (3 sources)Start: 09-46-9482iazejo 100 mg intravenously every weekStart: 11-02-2024 End: 70-19-0654nknqbc 100 mg intravenously every weekFerric Carboxymaltose (Injectafer) 100 mg iron/2 mL solution Discontinued 750 MG IV Q7D November 02 12:00am December 06, 2024 4:11pmStart: 85-06-1019ymdmvn 100 mg intravenously every weekFerric Carboxymaltose (Injectafer) 100 mg iron/2 mL solution Active 750 MG IV Q7D November 02, 2024 12:00amferrous sulfate 325 mg oral tablet (20 sources)Start: 59-15-2457pmxi 325 mg by mouth once daily at femnxlvlz267 mg, Oral, DAILY WITH BREAKFAST, First dose (after last modification) on Fri10/06/24 at 0800, Until DiscontinuedStart: 08-11-2024 End: 77-11-2777nsvc 1 tablet by mouth twice dailyFerrous Sulfate 325 mg (65 mg iron) tablet Active 325 MG PO Twice daily 180 November 29, 2024 4:34pm Complies with drug therapyStart: 16-42-5213jjpk 1 tablet by mouth once dailyferrous sulfate (as elemental iron) 45 mg oral tablet, extended release 45 mg = 1 tab(s), Oral, Daily, # 30 tab(s), Refills(s) 0 Start Date: 03/02/24 Status: Ordered Quantity: 30.0 Unit: tab(s) Repeatnumber: 1Start: 10-22-2023 End: 09-12-3987lhxw 1 tablet by mouth once dailyFerrous Sulfate 142 mg (45 mg iron) tablet extended release Discontinued 142 MG PO Daily October 22, 2023 12:00am August 11, 2024 10:37amtake 1 tablet by mouth at mealtimeferrous sulfate 325 (65 Fe) MG tablet Take 325 mg by mouth in the morning. Take with meals. ActiveFIBER ADULT GUMMIES PO (20 sources)take 2 tablets by mouth once dailyFIBER ADULT GUMMIES PO Take 2 tablets by mouth Daily Activefurosemide 40 mg oral tablet (20 sources)Loop DiureticStart: 05-03-2024 End: 07-79-5300fmar 1 tablet by mouth once dailyFurosemide 40 mg tablet Active 0 .ROUTE .COMPLEX 90 January 02, 2025 2:55pm TAKE 1 TABLET BY MOUTHEVERY DAY Complies with drug therapyStart: 02-04-2024 End: 25-86-8317osmd 1 tablet by mouth once dailyfurosemide 40 mg Tab TAKE 1 TABLET BY MOUTH EVERY DAY Start Date: 03/02/24 Status: Ordered Repeat number: 1 inulin 2000 mg chewable tablet (12 sources)Start: 15-31-9698bjye 1 tablet by mouth once dailyInulin (Fiber Gummies) 2 gram tablet,chewable Active 2 GM PO Daily December 31, 2023 12:00am Complies with drug hiqykdi39 ml magnesium sulfate 40 mg/ml injection (1 source)Start: ,000 mg, IntraVENous, at 25 mL/hr, Administer over [...] 2 doses Infuse at 1,000 mg/hr Repeat Maglevel 1 hour after final administration Protocol not for use in Patients with CrCl less than 30ml/min methIMAzole 5 mg oral tablet (20 sources)Thyroid Hormone Synthesis InhibitorStart: 07-15-2024 End: 72-12-5109chbffdnkqxx 5 mg Tab See Instructions, Refills(s) 0 Start Date: 07/15/24 Status: Ordered Repeat number: 1Start: 05-24-2024 End: 63-57-7809zzkk 2.5 mg by mouth in the morningmethIMAzole (Tapazole) 5 MG tablet Take 2.5 mg by mouth in the morning and 2.5 mg in the evening. 05/24/2024 08/03/2024 Discontinued (Dose adjustment)Start: 05-24-2024 End: 83-35-2422urve 0.5 tablet by mouth twice dailymethIMAzole (Tapazole) 5 mg tablet Indications: High risk medication use , Hyperthyroidism Take 0.5tablets (2.5 mg) by mouth 2 times a day. 90 tablet 3 05/24/2024 07/29/2024 Discontinued (Reorder)metoprolol tartrate 25 mg oral tablet (20 sources)beta-Adrenergic BlockerStart: 06-65-2717xkrh 25 mg by mouth once dailymetoprolol 25 mg, Oral, Daily, Refills(s) 0 Start Date: 07/15/24 Status: Ordered Repeat number: 1Start: 05-21-2024 End: 94-08-9711stzr 1 tablet by mouth once dailyMetoprolol Succinate 25 mg tablet extended release 24 hr Active 25 MG PO Daily August 11, 2024 12:00am Complies with drug therapyStart: 05-21-2024 End: 64-29-7599ersm 1 tablet by mouth every twenty-four hours in the morning metoprolol succinate XL (Toprol-XL) 25 MG 24 hr tablet Take 25 mg by mouth in the morning. 05/21/2024 05/21/2025 ActiveStart: 15-46-3803Lqqmsaonkr tartrate 50 mg Tab Refills(s) 0 Start Date: 06/10/22 Status: OrderedStart: 05-16-2022 End: 70-77-8762dgub 1 tablet by mouth twice dailyMetoprolol Tartrate 50 mg tablet Discontinued 50 MG PO Twice daily May 16, 2022 1:00am January 16, 2024 2:11pmMultiple Vitamins-Minerals (Multivitamin Gummies Mens) chewable tablet (20 sources)Multiple Vitamins-Minerals (Multivitamin Gummies Mens) chewable tablet Chew 1 tablet Daily Activemultivitamin (Multiple Vitamins) tablet (7 sources)take 1 tablet by mouth once dailymultivitamin (Multiple Vitamins) tablet Take 1 tablet by mouth once daily. ActiveMultivitamin preparation (20 sources)Start: 52-83-2106adyr 1 tablet by mouth once dailyMultivitamin Active 1 TAB PO Daily October 22, 2023 12:00amStart: 44-06-9400fpafkzsnqcvk Daily, Refill(s) 0 Start Date: 07/31/22 Status: Ordered Repeat number: 1Start: 07-31-2022 multivitamin Daily, Refill(s) 0 Start Date: 07/31/22 Status: OrderedMultivitamin ActiveMultivitamin tablet (7 sources)Start: 82-49-4082nrwe 1 tablet by mouth once dailyMultivitamin tablet Active 1 TAB PO Daily October 22, 2023 12:00am Complies with drug therapyStart: 18-50-6486dmtc 1 tablet by mouth once dailyMultivitamin tablet Active 1 TAB PO Daily October 22, 2023 12:00amnitroglycerin 0.4 mg sublingual tablet (20 sources)Nitrate VasodilatorStart: 42-44-2614eqlsfhodwoxiu 0.4 mg sublingual Tab 0.4 mg = 1 tab(s), SubLingual, q5min, PRN for chest pain, # 100tab(s), Refills(s) 0 Start Date: 03/02/24 Status: Ordered Quantity: 100.0 Unit: tab(s) Repeat number: 1ondansetron (ZOFRAN-ODT) disintegrating tablet 4 mg (1 source)Start: 74-65-4318nuzpflmvhda (ZOFRAN-ODT) disintegrating tablet 4 mg24 hr oxybutynin chloride 10 mg extended release oral tablet (1 source)Cholinergic Muscarinic AntagonistStart: 95-42-7143hqoy 1 tablet by mouth once dailyoxybutynin 10 mg ER Tab 10 mg = 1 tab(s), Oral, Daily, # 14 tab(s), Refills(s) 0, Pharmacy: [facility]/pharmacy #[id number], 187, cm, 06/10/23 13:43:00 EST, Height/Length Dosing, 93, kg, 03/11/23 13:44:00 EDT, Weight Dosing Start Date: 06/11/23 Status: Orderedmicroencapsulated potassium chloride 20 meq extended release oral tablet (20 sources)Start: 19-81-3664kqiolbbme chloride (KLOR-CON M) extended release tablet 40 mEqStart: 80-85-8388Cjjn-Con 20 mEq, Refills(s) 0 Start Date: 04/06/24 Status: Ordered Repeat number: 1Start: 25-00-7306Afni-Con 20 mEq, Refills(s) 0 Start Date: 04/06/24 Status: OrderedStart: 03-08-2024 End: 25-08-0910Amzwkgcgo Chloride (Klor-Con M20) 20 mEq tablet,ER particles/crystals Discontinued 10 MEQ PO Daily August 11, 2024 10:30am November 03, 2024 4:02pmStart: 02-18-2024 End: 90-25-3712Ltluqdgnu Chloride (Klor-Con M20) 20 mEq tablet,ER particles/crystals Active 20 MEQ PO Daily November 03, 2024 3:58pm Complies with drug therapypredniSONE 10 mg oral tablet (3 sources)predniSONE 10 MG as directed Orally take 4 tablets daily x3 days, take 3 tablets for 3 days, 2 tablets for 3 days, 1 tablet for 3 days Active QUEtiapine 25 mg oral tablet (19 sources)Atypical AntipsychoticStart: 59-14-4137uhxb 1 tablet by mouth once dailyQuetiapine 25 mg tablet Active 25 MG PO Daily March 09, 2025 12:00am Complies with drug therapyStart: 31-47-9716uzxo 1 tablet by mouth three times dailyquetiapine 25 mg Tab 25 mg = 1 tab(s), Oral, TID Start Date: 11/16/24 Status: Ordered Repeat number:1Start: 10-02-2024 End: 40-85-9564tvnl 1 tablet by mouth once daily at bedtimeQuetiapine 25 mg tablet Discontinued 25 MG PO Daily at bedtime October 11, 2024 12:00am November 03, 2024 4:02pmSpacer/Aero-Holding Chambers (BreatheRite Dulce Spacer Adult) misc (20 sources)Start: 57-53-2776Irscwh/Aero-Holding Chambers (BreatheRite Dulce Spacer Adult) [facility] Indications: Simple chronic bronchitis (HCC) 2 puffs 4 (four) times a day as needed (sob and cough) 1 each 02/17/2024 ActiveStart: 02-17-2024 Spacer/Aero-Holding Chambers (BreatheRite Dulce Spacer Adult) misc Indications: Simple chronic bronchitis (CMS/HCC) 2 puffs 4 (four) times a day as needed (sob and cough) 1 each 02/17/2024 Activeticagrelor 90 mg oral tablet (20 sources)Start: 04-98-0592hjrf 1 tablet by mouth every twelve hoursBrilinta 90 MG tablet Take 90 mg by mouth every 12 (twelve) hours 01/16/2024 ActiveStart: 01-16-2024 End: 60-70-1248eaip 1 tablet by mouth twice dailyTicagrelor (Brilinta) 90 mg Tablet Discontinued 90 MG PO Twice daily 180 90 January 16, 2024 12:00am August 11, 2024 10:30amVitafusion Fiber Well + Probiotics Gummies oral tablet, chewable (13 sources)Start: 65-91-5212fwsu 1 tablet by mouth once dailyVitafusion Fiber Well + Probiotics Gummies oral tablet, chewable tab(s), Oral, Daily, Refill(s) 0 Start Date: 03/02/24 Status: Ordered Repeat number: 1Start: 09-64-3161ikaj 1 tablet by mouth once dailyVitafusion Fiber Well + Probiotics Gummies oral tablet, chewable tab(s), Oral, Daily, Refill(s) 0 Start Date: 03/02/24 Status: Orderedwarfarin sodium 2 mg oral tablet (20 sources)Vitamin K AntagonistStart: 10-05-2024 End: mg, Oral, ONCE Warfarin, 1 dose, On Tu10/05/24 at 1800, Indication of Use: A Fib/A Flutter, Whatis the patient's goal INR? 2.0 - 3.0, Review INR prior to administration. Hazardous med- See facility policy for handling/disposalStart: 10-04-2024 End: mg, Oral, ONCE Warfarin, 1 dose, On 10/04/24 at 1800, Indication of Use: A Fib/A Flutter, Whatis the patient's goal INR? 2.0 - 3.0, Review INR prior to administration. Hazardous med- See facility policy for handling/disposalStart: 10-03-2024 End: mg, Oral, ONCE Warfarin, 1 dose, On Fri10/03/24 at 1800, Indication of Use: A Fib/A Flutter, Whatis the patient's goal INR? 2.0 - 3.0, Review INR prior to administration. Hazardous med- See facility policy for handling/disposalStart: 10-02-2024 End: mg, Oral, ONCE Warfarin, 1 dose, On 10/02/24 at 1800, Indication of Use: A Fib/A Flutter, Whatis the patient's goal INR? 2.0 - 3.0, Review INR prior to administration. Hazardous med- See facility policy for handling/disposalStart: 81-98-1431vzrr 0.5 tablet by mouth once dailywarfarin (COUMADIN) 2 MG tablet Take 0.5 tablets by mouth daily 04/21/2024 ActiveStart: 84-09-1295ahqzjonf 2 mg Tab 2 mg = 1 tab(s), Refills(s) 0 Start Date: 04/06/24 Status: Ordered Repeat number:1Start: 86-46-3154zeaaotzy 2 mg Tab 2 mg = 1 tab(s), Refills(s) 0 Start Date: 04/06/24 Status: OrderedStart: 03-05-2024 End: 69-38-4881fznvpdjj (Coumadin) 5 mg tablet Indications: Paroxysmal atrial fibrillation (Multi) Take one tabletdaily in the evening. Follow with [facility]. Patient will take coumadin and eliquis together for 3 days only 14 tablet 03/05/2024 03/04/2025 Activewarfarin placeholder: dosing by pharmacy (1 source)Start: 04-06-8414Bxteez contact the pharmacy if a dose is not entered by 1600. Review INR prior to warfarin administration.water 1000 mg/ml irrigation solution (9 sources)Start: 72-74-1123oqpazeg water irrigation solution Refill(s) 0 Start Date: 04/06/24 Status: OrderedStart: 17-10-2348huppeqn water irrigation solution See Instructions, 500 mL, Refill(s) 1, Irrigate zapien catheter asneeded with 60 cc sterile water, [id number], 187, cm, 10/03/23 14:11:00 EDT, Height/Length Dosing, 93, kg, 10/03/23 14:11:00 EDT, Weight Dosing Start Date: 10/03/23 Status: Ordered Completed/Discontinued Medications MedicationDrug Class(es)DatesSig (Normalized)Sig (Original)ARIPiprazole 5 mg oral tablet (20 sources)Atypical AntipsychoticStart: 11-03-2024 End: 79-66-1553mknl 1 tablet by mouth once dailyAripiprazole 5 mg tablet Discontinued 5 MG PO Daily November 03, 2024 12:00am March 09, 2025 2:28pm Start: 10-15-2024 End: 37-04-5830zaxc 2.5 mg by mouth at bedtimeARIPiprazole (Abilify) 5 MG tablet Take 2.5 mg by mouth at bedtime 10/15/2024 11/09/2024 Discontinued (Med list cleanup)Start: 09-23-2024 End: 71-76-4532Apyygxyfdvkt 2 mg tablet Discontinued 2 MG PO September 23, 2024 12:00am October 11, 2024 12:28pmStart: 09-21-2024 End: 14-96-0079hcbm 0.5 tablet by mouth at bedtimeARIPiprazole (Abilify) 2 MG tablet Indications: Hallucinations Take 0.5 tablets (1 mg) by mouth at bedtime 15 tablet 09/21/2024 10/19/2024 Discontinued (Discontinued by another clinician) aspirin 81 mg delayed release oral tablet (20 sources)Platelet Aggregation Inhibitor, Nonsteroidal Anti-inflammatory Drug Start: 10-22-2023 End: 23-00-5768Agndskl (Adult Low Dose Aspirin) 81 mg tablet,delayed release (DR/EC) Discontinued 81 MG PO Daily October 22, 2023 12:00am January 23, 2024 2:59pmStart: 76-44-7149moic 1 tablet by mouth once dailyAspirin 81 MG Oral Tablet Delayed Release TAKE 1 TABLET DAILY. Quantity: 90 Refills: 3 Ordered: 22-Jan-2023 Teo Al MD Start : 22-Jan-2023 ActiveStart: 05-16-2022 End: 70-25-8303cmij 1 tablet by mouth once dailyAspirin 81 mg Tablet Discontinued 81 MG PO Daily May 16, 2022 1:00am June 21, 2022 11:01 am On Hold: Resume on 06/26/22. Hold this until after your abdominal aortic aneurysm is treated.azithromycin (ZITHROMAX) 500 mg in sodium chloride 0.9 % 250 mL IVPB (Hjlo6Haw) (1 source)Start: 10-02-2024 End: 19-26-4899936 mg, IntraVENous, EVERY 24 HOURS, 2 doses, First dose on 10/02/24 at 1200, Last dose on 10/03/24 at 1200, Antimicrobial Indications: Pneumonia (CAP), CAP duration of therapy: 3 days, Use 20mm (Blue) [id number] Adapter Preparation instructions: Attach medication vial to one 20mm (Blue) Zelp9Ood adapter. James fluid bag with adapter, mix, and administer per order. benzonatate 100 mg oral capsule (10 sources)Non-narcotic AntitussiveStart: 03-08-2024 End: 86-95-2860ewpv 1 capsule by mouth three times dailyBenzonatate 100 mg capsule Discontinued 100 MG PO Three times daily 13 12March 08, 2024 12:00am August 11, 2024 10:30amcefTRIAXone (ROCEPHIN) 1,000 mg in sterile water 10 mL IV syringe (1 source)Start: 10-02-2024 End: 73-58-0344hbld 100 mg intravenously every twenty-four hours1,000 mg, IntraVENous, EVERY 24 HOURS, First dose on 10/02/24 at 1200, For 4 days, Administer asslow IV Push over 5 mins Reconstitute 1 g vials with 9.6 mL of designated diluent to produce a 100 mg/mL solution.cefuroxime 500 mg oral tablet (2 sources)Cephalosporin AntibacterialStart: 02-17-2024 End: 30-52-4324pniz 1 tablet by mouth in the morningcefuroxime (Ceftin) 500 MG tablet Indications: Pneumonia of left lower lobe due to infectious organism Take 1 tablet (500 mg) by mouth in the morning and 1 tablet (500 mg) before bedtime. Do all thisfor 7 days. 14 tablet 02/17/2024 02/25/2024 Discontinued (Therapy completed)ciprofloxacin 250 mg oral tablet (11 sources)Quinolone AntimicrobialStart: 10-05-2024 End: 10-63-5134udul 1 tablet by mouth every twelve hoursciprofloxacin (CIPRO) 250 MG tablet Take 1 tablet by mouth every 12 hours for 9 doses 9 tablet 10/0510/05/2024 Discontinued (Stop Taking at Discharge)Start: 10-05-2024 End: 95-11-2237061 mg, Oral, EVERY 12 HOURS SCHEDULED (2 times per day), 10 doses, First dose on Fri10/05/24 at 1045, Last dose on Fri10/09/24 at 2100, Antimicrobial Indications: Urinary Tract Infection, UTI duration of therapy: 5 days, Do not take with dairy products or calcium-fortified juices. Tube feeding (TF) interaction, obtain physician order to manage. Recommend holding TF for 1 hr before and 1 hr afterdose. Due to decreased absorption do not give by J tube. Start: 78-55-2166iabf 1 tablet by mouth once dailyCipro 500 mg Tab = 1 tab(s), Oral, Daily, Refills(s) 0 Start Date: 04/06/24 Status: OrderedStart: 12-03-2022 take 1 tablet by mouth once dailyCipro 250 mg Tab 250 mg = 1 tab(s), Oral, Daily, Take 1 tablet the day before the procedure and 1 tablet after the procedure, # 6 tab(s), Refills(s) 0, Pharmacy: [id number], 187, cm, 09/18/2313:39:00 EDT, Height/Length Dosing, 93, kg, 09/18/22 14:39:00 EDT, Weight Dosing Start Date: 12/03/22 Status: OrderedStart: 31-75-6480tfdk 1 tablet by mouth once dailyCipro 250 mg Tab 250 mg = 1 tab(s), Oral, Daily, Take 1 tablet the day before the procedure and 1 tablet after the procedure, # 2 tab(s), Refills(s) 0, Pharmacy: [id number], 187, cm, 239:11:00 EST, Height/Length Dosing, 93.5, kg, 06/11/22 9:11:00 EST, W... Start Date: 07/25/22 Status: Ordereddoxycycline hyclate 100 mg oral capsule (10 sources)Tetracycline-class DrugStart: 03-08-2024 End: 21-84-3518rirqrjrafdt (Vibramycin) 100 MG capsule Indications: Pneumonia Take 100 mg by mouth in the morning and 100 mg before bedtime. Take with at least 8 ounces (large glass) of water, do not lie down for 30 minutes after. 03/08/2024 03/19/2024 ExpiredStart: 03-08-2024 End: 66-88-9935reyh 1 capsule by mouth twice dailyDoxycycline Hyclate 100 mg capsule Discontinued 100 MG PO Twice daily 14 03March 08, 2024 12:00am August 11, 2024 10:30amfolic acid 1 mg oral tablet (20 sources)Start: 04-87-1743eisaz acid 1 mg Tab Refills(s) 0 Start Date: 06/10/22 Status: OrderedStart: 05-22-2022 End: 13-47-0404Lqumi Acid 1 mg tablet Discontinued 1000 MCG PO Daily at bedtime June 21, 2022 11:02am October 22, 2023 11:05amStart: 05-22-2022 End: 01-46-5454wppt 1000 ug by mouth once daily at bedtimeFolic Acid Discontinued 1000 MCG PO Daily at bedtime June 21, 2022 11:02am October 22, 2023 11:05am10 ml iron sucrose 20 mg/ml injection (7 sources)Parenteral Iron ReplacementStart: 10-25-2024 End: 31-13-5301Mqea Sucrose (Venofer) 200 mg iron/10 mL solution Discontinued 200 MG IV Q3D October 25, 2024 12:00amJun2024 9:27am administer over 30 minsStart: 10-21-2024 End: 41-40-3987Euhu Sucrose (Venofer) 200 mg iron/10 mL solution Discontinued 200 MG IV every week 50 October 25, 2024 2:24pm October 25, 2024 2:27pm administer over 2-5 minsStart: 10-04-2024 End: 66-50-4452838 mg, IntraVENous, ONCE, On Fri10/04/24 at 0900, For 1 dose, May administer doses less than or equal to 200 mg undiluted by slow IV injection over 2 to 5 minutes. When administering to hemodialysispatients, give within the first hour of the session. Observe for signs and symptoms of hypersensitivity and/or anaphylactic-type reactions per institutional standard during and for at least 30 minutes following the end of administration and until clinically stable.melatonin 3 mg oral tablet (1 source)Start: 60-44-2748fusc 3 mg by mouth once daily as needed3 mg, Oral, NIGHTLY PRN, Starting on Fri10/04/24 at 1903, Until Discontinued, SleepMulti Vitamin Oral Tablet (1 source)take 1 tablet by mouth once dailyMulti Vitamin Oral Tablet TAKE 1 TABLET DAILY. Quantity: 0 Refills: 0 Ordered: 22-Jan-2023 DO Activepolyethylene glycol 3350 10822 mg powder for oral solution (1 source)Osmotic LaxativeStart: 47-98-488504 g, Oral, DAILY PRN, Starting on 10/02/24 at 1050, Until Discontinued, Constipation, First line therapy for constipationPotassium Chloride (Klor-Con M20) 20 mEq tablet,ER particles/crystals (8 sources)Start: 03-08-2024 End: 05-98-8821Dwfvoruqz Chloride (Klor-Con M20) 20 mEq tablet,ER particles/crystals Discontinued MEQ PO March 08, 2024 12:00am August 11, 2024 10:33amStart: 82-72-1363Jvolsvfds Chloride (Klor-Con M20) 20 mEq tablet,ER particles/crystals Active MEQ PO March 08, 2024 12:00am24 hr rivastigmine 0.192 mg/hr transdermal system (8 sources)Start: 10-11-2024 End: 37-50-0120hvgfy 1 dose transdermal route every hour, then apply 1 dose transdermal route every twenty-four hoursRivastigmine (Exelon Patch) 4.6 mg/24 hour patch 24 hour Discontinued 4.6 MG TRANSDERML Daily October 11, 2024 12:00am March 09, 2025 2:29pmStart: 10-04-2024 End: 06-08-2954yilag 1 dose transdermal route once dailyrivastigmine (Exelon) 4.6 MG/24HR Place 1 patch on the skin Daily 10/06/2024 10/22/2024 Discontinued (Therapy completed)simvastatin 20 mg oral tablet (20 sources)HMG-CoA Reductase InhibitorStart: 05-16-2022 End: 98-81-0286mkif 1 tablet by mouth at bedtimeSimvastatin 20 mg tablet Discontinued 20 MG PO Bedtime May 16, 2022 1:00am January 1542:11pm 1000 ml sodium chloride 9 mg/ml injection (4 sources)Start: 10-02-2024 End: 52-30-2835CtplcBSPhcv, at 100 mL/hr, CONTINUOUS, Starting on 10/02/24 at 1130, For 12 hoursStart: 72-07-1945VaonvNZBtlm, at 5-250 mL/hr, PRN, if patient receiving piggyback infusions and maintenance fluids are not ordered, Starting on 10/02/24 at 1050, For piggyback infusion, administer at same rate as p iggyback for a total of 25 mL. Enter 25 mL into dose field and piggyback rate into rate field of order. If piggyback is infusing at a rate less than 100 mL/hr, enter 25 mL into dose field and 100 mL/hr into rate field of order.Start: -40 mL, IntraVENous, EVERY 12 HOURS SCHEDULED (2 times per day), First dose on 10/02/24 at 1115, Until Discontinued, For Line Patency: Peripheral IV = 5 mL; Midline or Central Line = 10 mL/lumen.If following IV push medication, administer flush at same rate as the IV push. Flush volume is deter mined by type of infusion therapy being given. For non-viscous solutions use: Peripheral IV = 5 mL Midline or Central Line = 10 mL/lumen For viscous solutions (i.e. blood components, parenteral nutrition, contrast media, or after obtaining blood sample) use: Peripheral IV = 10 mL Midline or CentralLine = 20 mL/lumen Start: -40 mL, IntraVENous, PRN, Starting on 10/02/24 at [...] For viscous solutions (i.e. blood components, parenteral nutrition,contrast media, or after obtaining blood sample) use: Peripheral IV = 10 mL Midline or Central Line= 20 mL/lumenSpacer/Aero-Holding Chambers device (13 sources) End: 32-91-1044Myvaoi/Aero-Holding Chambers device every 8 (eight) hours. 05/13/2024 Discontinued (Therapy completed)Spacer/Aero-Holding Chambers device every 8 (eight) hours. Activespironolactone 25 mg oral tablet (19 sources)Aldosterone AntagonistStart: 10-03-2023 End: 62-45-4565nlal 1 tablet by mouth once dailySpironolactone 25 mg tablet Discontinued 25 MG PO Daily October 22, 2023 12:00am January 23, 2024 2:59pm sulfamethoxazole 800 mg / trimethoprim 160 mg oral tablet (4 sources)Dihydrofolate Reductase Inhibitor Antibacterial, Sulfonamide AntimicrobialStart: 10-05-2024 End: 77-82-1849dhty 1 tablet by mouth once dailySulfamethoxazole-Trimethoprim 800-160 mg tablet Discontinued 1 TAB PO Daily October 11, 2024 12:00am November 03, 2024 4:02pmvitamin b12 1 mg oral capsule (20 sources)Vitamin G96Xaxwd: 05-22-2022 End: 97-88-6022cqaq 1 capsule by mouth once daily at bedtimeCyanocobalamin (Vitamin B-12) 1,000 mcg capsule Discontinued 1000 MCG PO Daily at bedtime June 21, 2022 11:02am October 22, 2023 11:04amCyanocobalamin 1000 MCG as directed Orally Activetake 1 tablet by mouth once dailyB-12 1000 MCG Oral Tablet TAKE 1 TABLET DAILY DIRECTED. Quantity: 0 Refills: 0 Ordered: 03-Jun-2022 DO Active Problems Active Problems Problem ClassificationProblemDateDocumented DateEpisodic/ChronicAcute myocardial infarction (20 sources)Acute myocardial infarction of anterior wall; Translations: [ST elevation (STEMI) myocardial infarction involving other coronary artery of anterior wall]Onset: 508333-10-1116YnxufhsXdxgxutlobxczg/social admission (20 sources)Other reduced mobility; Translations: [Impaired mobility and activities of daily living]Onset: 488201-99-7372PajfxcdjYdukcn; peripheral; and visceral artery aneurysms (20 sources)Abdominal aortic aneurysm; Translations: [Abdominal aneurysm without mention of rupture]Onset: 21-01-9649UtkulaiFrvmgno on above:Problem List clean- up per request of Phys. EHR CmteAttention-deficit, conduct, and disruptive behavior disorders (1 source)Other symptoms and signs involving appearance and behavior; Translations: [Other symptoms and signsinvolving appearance and behavior]Onset: 91-81-1898KmlkazfaJbhssuth of urinary tract (20 sources)Urinary bladder stone; Translations: [Calculus in bladder]Onset: 21-68-7620WhwyzwyiAcvnwe of bladder (20 sources)Malignant tumor of urinary bladder; Translations: [Malignant neoplasm of bladder, unspecified]Onset: 18-12-0184FmjyjelIeoddc; other and unspecified primary (20 sources)H/O: malignant clxulcns43-26-7035IrfgflklLwmkhrg dysrhythmias (20 sources)Atrial fibrillation; Translations: [Unspecified atrial fibrillation] Onset: 11-11-2022 Resolved: 245409-29-7257CmcovfcYxzvwrr kidney disease (20 sources)Chronic kidney disease stage 3B ; Translations: [Chronic kidney disease, stage 3b]Onset: 088185-46-4670GneapotEjismkz kidney disease (6 sources)Chronic kidney disease; Translations: [CHRONIC KIDNEY DISEASE STAGE 3B]Onset: 38-71-4090Xjlzsey obstructive pulmonary disease and bronchiectasis (20 sources)Pulmonary emphysema; Translations: [Simple chronic bronchitis]Onset: 306078-59-6471NnsymipSllhttzdsuzn of device; implant or graft (5 sources)Other mechanical complication of indwelling urethral catheter, initial encounter; Translations: [Mechanical complication of genitourinary device]Onset: 70-78-3610EgiavpvoBudukgcrlo heart failure; nonhypertensive (20 sources)Chronic systolic heart failure; Translations: [Chronic systolic (congestive) heart failure]Onset: 869775-80-9204EaaczauAedcikgj atherosclerosis and other heart disease (20 sources)Ischemic myocardial dysfunction; Translations: [Ischemic cardiomyopathy]Onset: 838143-22-2154ElbywjdHzdtjsrs atherosclerosis and other heart disease (20 sources)Stented coronary artery; Translations: [Presence of coronary angioplasty implant and graft]Onset: 01-16-2024 Resolved: 011129-88-7102BqitrhlvNjvutwduds and other anemia (20 sources)Anemia co-occurrent and due to chronic kidney disease stage 3; Translations: [Anemia due to stage 3b chronic kidney disease (HCC)]Onset: 380952-10-7240RdlfnqmUdisowaoaj and other anemia (15 sources)Anemia; Translations: [Anemia, unspecified]21-13-7217Gsuyrpdm Deficiency and other anemia (13 sources)Anemia, unspecified; Translations: [Anemia, unspecified]10-22-2023 EpisodicDelirium, dementia, and amnestic and other cognitive disorders (20 sources)Dementia; Translations: [Unspecified dementia without behavioral disturbance]Onset: 06-11-2022 Resolved: 21-82-0652CdxsmxqCnrliwzqu of lipid metabolism (20 sources)Dyslipidemia; Translations: [Other and unspecified hyperlipidemia] Onset: 25-46-3476UyfamjfZugaxwvhx hypertension (20 sources)Hypertensive disorder; Translations: [Unspecified essential hypertension]Onset: 277254-58-0943JlaegwsRlynrlknlzehh symptoms and ill- defined conditions (2 sources)Urinary catheter in situ; Translations: [Presence of urogenital implants]50-62-4246HhdgxoaDhsstdpepksfp symptoms and ill-defined conditions (20 sources)Retention of urine; Translations: [Retention of urine, unspecified] Onset: 06-10-2022 Resolved: 55-73-9050TtbxxcyoYlnpwcymyqy of prostate (20 sources)Benign prostatic hypertrophy with outflow obstruction; Translations: [Benign prostatic hyperplasia with lower urinary tract symptoms]Onset: 85-28-6792ItuvminYzlmlrlrucyj with complications and secondary hypertension (20 sources)Hypertensive chronic kidney disease with stage 1 through stage 4 chronic kidney disease, or unspecified chronic kidney disease; Translations: [Hypertensive renal disease]Onset: 02-22-2016 Resolved: 327592-50-7107XduurowCxfi effects of cerebrovascular disease (1 source)Other sequelae following unspecified cerebrovascular disease; Translations: [OTH SEQUELAE UNS CEREBROVASCULAR DZ]Onset: 32-47-5618Krtzaba Nutritional deficiencies (20 sources)Cobalamin deficiency; Translations: [Deficiency of other specified B group vitamins]Onset: 597345-44-0842XghmuykkGfemkfk on above:Problem List clean-up per request of Phys. 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; Translations: [RESIDENTIAL CURRNT USE ANTICOAGULANTS]Onset: 19-91-8993CmaecqycWllzj aftercare (17 sources)Taking high risk medication; Translations: [Other long-term (current) drug therapy]Onset: 360564-63-8922GcauqatfOthtv aftercare (1 source)Long-term current use of anticoagulant; Translations: [parts counterman (current) use of anticoagulants]Onset: 15-11-2119HajixnubCsmvq aftercare (5 sources)Patient encounter status; Translations: [Encounter for palliative care]Onset: 961854-77-5449VovutkcfOgljk and ill-defined cerebrovascular disease (20 sources)Cerebral ischemiaOnset: 275249-68-0859HjkzmwjKivvv circulatory disease (1 source)Stented artery; Translations: [Presence of other vascular implants and grafts]30-78-8883VruomgdYjoex circulatory disease (1 source)Personal history of transient ischemic attack (TIA), and cerebral infarction without residual deficits; Translations: [PERS HX TIA AND CI NO RESID DEFICIT]Onset: 30-11-3536CouazwijAyrpm circulatory disease (11 sources)Low blood pressure; Translations: [Hypotension, unspecified] 27-60-2726VfuxnycyAyogj diseases of bladder and urethra (2 sources)Disorder of bladder; Translations: [Other specified disorders of bladder]Onset: 43-93-9320NoduhxxLirxs diseases of bladder and urethra (20 sources)Mass of urinary bladder; Translations: [Other specified disorders of bladder]84-58-8386VvrpbjtFowpsln on above:Problem List clean-up per request of Phys. EHR CmteOther diseases of bladder and urethra (4 sources)Other specified disorders of bladder; Translations: [Other specified disorders of bladder]74-18-7743OkpdagzYgkhs diseases of bladder and urethra (20 sources)Lesion of ugccdgp95-59-7948EldmpieWkpnj diseases of bladder and urethra (1 source)Diverticulum of bladder; Translations: [DIVERTICULUM OF BLADDER]Onset: 00-48-6029NordxbnNdwmj diseases of bladder and urethra (1 source)Bladder disorder, unspecified; Translations: [BLADDER DISORDER UNSPECIFIED]Onset: 68-96-2909SeelhufHopyt diseases of kidney and ureters (20 sources)Hydroureter; Translations: [Hydroureter]Onset: 80-48-8532Iorythgw Other diseases of kidney and ureters (2 sources)Disorder of kidney and/or ureter; Translations: [Disorder of kidney and ureter, unspecified]Onset: 87-21-0695UwzzoipxVdtjg diseases of kidney and ureters (20 sources)Cnagdueuwxlfje53-49-0242NakfvwxcVlevc diseases of kidney and ureters (20 sources)Kidney iuwsng68-03-0967NtermmnnFywhz diseases of kidney and ureters (20 sources)Bilateral hydronephrosis ; Translations: [Unspecified hydronephrosis]Onset: 417005-28-1634KlahuqvkMmzij diseases of kidney and ureters (7 sources)Unspecified hydronephrosis; Translations: [Hydronephrosis]Onset: 962875-95-1170SjisxmuyIgzuj diseases of kidney and ureters (1 source)Urinary tract obstruction; Translations: [Other obstructive and reflux uropathy]Onset: 47-51-6542KpurzhwrTxtcg diseases of kidney and ureters (15 sources)Obstructive nephropathy; Translations: [Other obstructive and reflux uropathy]69-46-9273TdblgiadXplpq diseases of kidney and ureters (13 sources)Other obstructive and reflux uropathy; Translations: [Other specified disorders of kidney and ureter]95-42-7304UvyhrkcgZjqqk diseases of veins and lymphatics (1 source)Venous insufficiency (chronic) (peripheral); Translations: [VENOUS INSUFF CHRONIC PERIPHERAL]Onset: 53-93-0199GgiytzrwWdahu diseases of veins and lymphatics (2 sources)Disorder of vein of lower extremity; Translations: [Venous insufficiency (chronic) (peripheral)]09-07-1497IxucromhDeckk ear and sense organ disorders (20 sources)Hearing difficulty; Translations: [Unspecified hearing loss, bilateral]Onset: 579301-58-9697AujaohvWpkrv ear and sense organ disorders (20 sources)Hearing loss; Translations: [Unspecified hearing loss, unspecified ear]Onset: 841221-65-4996CnbklnqVcfpm ear and sense organ disorders (2 sources)Mixed conductive and sensorineural hearing loss, bilateral; Translations: [Mixed conductive and sensorineural hearing loss, bilateral] 84-24-7788QrxgdihFtbzx gastrointestinal disorders (20 sources)Diarrhea; Translations: [Diarrhea, unspecified]98-38-7230Zjajohwn Comment on above:Problem List clean-up per request of Phys. 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 EHR CmteOther nervous system disorders (20 sources)Metabolic encephalopathy; Translations: [Metabolic encephalopathy] Onset: 449036-27-9000LmvdfrfFmemezw on above:Problem List clean-up per request of Phys. EHR CmteOther nervous system disorders (4 sources)Metabolic encephalopathy; Translations: [Metabolic encephalopathy] 71-08-8608HxbrhtmVylnn nervous system disorders (9 sources)Circadian rhythm sleep disorder, unspecified type; Translations: [Disruption of 24 hour sleep wake cycle, unspecified]Onset: 848058-92-3602 ChronicOther nervous system disorders (11 sources)Abnormal circadian rhythm; Translations: [Circadian rhythm sleep disorder, unspecified type]90-98-1547TkiqxxcUjmai nervous system disorders (1 source)Unspecified disturbances of skin sensation; Translations: [UNS DISTURBANCES OF SKIN SENSATION]Onset: 33-76-9971HeuatcgmHonhe nervous system disorders (2 sources)Impaired cognition; Translations: [Other symptoms and signs involving cognitive functions and awareness]42-30-0943NvyanjwqCpenf nervous system disorders (1 source)Other symptoms and signs involving cognitive functions and awareness; Translations: [Other symptomsand signs involving cognitive functions and awareness]Onset: 83-97-2359UfvfifhwZbbjo nutritional; endocrine; and metabolic disorders (1 source)Other obesity due to excess calories; Translations: [OTHER OBESITY D/T EXCESS CALORIES]Onset: 42-01-8595LzfoyrkNxwbz nutritional; endocrine; and metabolic disorders (16 sources)Overweight in adulthood with body mass index of 25 or more but less than 30; Translations: [Overweight]Onset: 02-10-2024 Resolved: 321380-05-6474LrwxnuomLdnxb nutritional; endocrine; and metabolic disorders (2 sources)Body mass index (BMI) 25.0-25.9, adult; Translations: [Body mass index (BMI) 25.0-25.9, adult]Onset: 62-10-4686EhevjvzlGtmwknbbpl and visceral atherosclerosis (1 source)Peripheral vascular disease; Translations: [Peripheral vascular disease, unspecified]41-68-5844SvyxcajPxinmycr codes; unclassified (20 sources)Tobacco user; Translations: [Tobacco use]82-22-8848RysodzvcLkkvjxe on above:quit aprilroblem List clean-up per request of Phys. EHR CmteResidual codes; unclassified (4 sources)Tobacco use; Translations: [Tobacco use disorder]33-52-6180Okcitntn Residual codes; unclassified (14 sources)History of cardiovascular surgery; Translations: [Other specified postprocedural states]37-63-7003ObeclyxqAtujumqo codes; unclassified (12 sources)Delirium; Translations: [Disorientation, unspecified]01-23-2024 EpisodicResidual codes; unclassified (3 sources)Prevention status; Translations: [Need for prophylaxis against urinary tract infection]32-00-8252VrfnupmnGvrnwbdv codes; unclassified (2 sources)Hallucinations; Translations: [Hallucinations, unspecified]09-21-2024 EpisodicResidual codes; unclassified (1 source)Localized edema; Translations: [Localized edema]Onset: 10-02-2024 EpisodicThyroid disorders (3 sources)Hyperthyroidism; Translations: [Thyrotoxicosis, unspecified without thyrotoxic crisis or storm]Onset: 953089-41-6822DyjijwrItkhsitha cerebral ischemia (20 sources)Transient cerebral ischemia; Translations: [Unspecified transient cerebral ischemia]Onset: 914072-05-9888QctagwcRbdmxzt on above:Problem List clean-up per request of Phys. EHR CmteUnclassified (1 source)ABDOMINAL AA W/O RUPTURE UNSPCIFIED; Translations: [ABDOMINAL AA W/O RUPTURE UNSPCIFIED]Onset: 54-96-6301Rddoewdhmcuy (1 source)CONTACT W/AND (SUSP) EXPOS COVID-19; Translations: [CONTACT W/AND (SUSP) EXPOS COVID-19]Onset: 76-76-5675Lqcbvdwutaxl (9 sources)Drug therapy eyccgnw09-74-1150Aecucqmcxxig (2 sources)Abdominal aortic aneurysm, without rupture, unspecified; Translations: [Abdominal aortic aneurysm, without rupture, unspecified]Onset: 38-68-2874Sjqbcbchdmnn (1 source)Abdominal aortic aneurysm, without rupture, unspecified (CMS-HCC); Translations: [Abdominal aortic aneurysm, without rupture, unspecified (CMS-HCC)]Onset: 86-28-1425Iwaltdg tract infections (20 sources)Urinary tract infectious disease; Translations: [Urinary tract infection, site not specified]Onset: 434459-71-6188WstlrpntKxdnpoc on above:Problem List clean-up per request of Phys. EHR CmteViral infection (4 sources)COVID-19; Translations: [COVID-19]Onset: 01-04-2022 Past or Other Problems Problem ClassificationProblemDateDocumented DateEpisodic/ChronicAcute and unspecified renal failure (20 sources)Acute renal failure syndrome; Translations: [Acute kidney failure, unspecified]Onset: 05-16-2022 Resolved: 53-10-6088IxjmdljnOishhil on above:Problem List clean-up per request of Phys. EHR CmteCancer of bladder (20 sources)History of malignant neoplasm of bladder; Translations: [Personal history of malignant neoplasm of bladder]Onset: 12-10-2022 Resolved: 28-33-1191RqtjolhhHqpqj and electrolyte disorders (20 sources)Hyperkalemia; Translations: [Metabolic acidosis]Onset: 05-16-2022 Resolved: 859158-66-6981YqhtznkgZtusene on above:Problem List clean-up per request of Phys. EHR CmteMalaise and fatigue (4 sources)Other fatigue; Translations: [OTHER FATIGUE]Onset: 88-16-5049Ccydwmpt Mood disorders (20 sources)Mood disordersOnset: 05-12-2023 Resolved: Nausea and vomiting (1 source)Vomiting, unspecified; Translations: [VOMITING UNSPECIFIED]Onset: 16-23-6952DbvriplgNkkijnakv of unspecified nature or uncertain behavior (20 sources)Neoplasm of unspecified behavior of bladder; Translations: [Neoplasm of bladder]Onset: 95-78-7179EbvgihpbBllaf aftercare (3 sources)Other long-term (current) drug therapy; Translations: [OTH RESIDENTIAL CURRENT DRUG THERAPY]Onset: 60-05-9274RtairiogSlisl aftercare (1 source)USP (current) use of aspirin; Translations: [RESIDENTIAL 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]Onset: 09-18-9166GnctdfriIrnaz aftercare (20 sources)Polypharmacy ; Translations: [Other long-term (current) drug therapy]Onset: 832560-55-5339PldevaycUmlwt circulatory disease (2 sources)Personal history of other diseases of the circulatory system; Translations: [Personal history of other diseases of the circulatory system] Onset: 88-94-9828QkzyvrzjFeswt circulatory disease (5 sources)Hypotension, unspecified; Translations: [Hypotension, unspecified] Onset: 042104-44-2541GbdaorafMiaqh circulatory disease (20 sources)H/O: cardiovascular disease; Translations: [Personal history of other diseases of the circulatory system]Onset: 02-22-2016 Resolved: 179884-31-6131AkakqczpIzdfe circulatory disease (3 sources)Other specified symptoms and signs involving the circulatory and respiratory systems; Translations:[Other symptoms involving respiratory system and chest]Onset: 006153-81-2962PxbpnnmbOqyvw diseases of veins and lymphatics (20 sources)Venous insufficiency of leg; Translations: [Venous insufficiency (chronic) (peripheral)]Onset: 478726-32-9991YtaybxwtQlyiy gastrointestinal disorders (5 sources)Diarrhea, unspecified; Translations: [Diarrhea]Onset: 05-23-2022 94-25-6130LcrjpljsAaxsx nervous system disorders (20 sources)White matter disease; Translations: [White matter disease, unspecified]Onset: 874397-87-3955AxjzbbpqKqrjl nutritional; endocrine; and metabolic disorders (3 sources)Body mass index (BMI) 26.0-26.9, adult; Translations: [BODY MASS INDEX BMI 26.0-26.9 ADULT]Onset: 16-27-5010IlpvyddcNuoay nutritional; endocrine; and metabolic disorders (1 source)Anorexia; Translations: [ANOREXIA]Onset: 72-42-9816XjmkymxiJfeyr nutritional; endocrine; and metabolic disorders (1 source)Abnormal weight loss; Translations: [ABNORMAL WEIGHT LOSS]Onset: 09-39-2231YykugudgZaeks nutritional; endocrine; and metabolic disorders (20 sources)Overweight; Translations: [Overweight]Onset: 926429-59-7666 EpisodicOther screening for suspected conditions (not mental disorders or infectious disease) (7 sources)Other specified abnormal findings of blood chemistry; Translations: [Prolonged QT interval]Onset: 35-94-8842AihpffgjFsiugesfx (except that caused by tuberculosis or sexually transmitted disease) (19 sources)Left lower zone pneumonia; Translations: [Pneumonia, unspecified organism]Onset: 942164-49-3219OtrsqlenVhzcqqcr codes; unclassified (8 sources)Other specified postprocedural states; Translations: [Other postprocedural status]Onset: 64-81-3534EnkqebbaUfbdgiid codes; unclassified (1 source)Chills (without fever); Translations: [CHILLS WITHOUT FEVER]Onset: 23-31-7576WgaondnkYyyruwrc codes; unclassified (5 sources)Disorientation, unspecified; Translations: [Other alteration of consciousness]Onset: 541009-66-7120KqzpnawvCqfrtdza codes; unclassified (16 sources)Edema of lower extremity; Translations: [Localized edema]Onset: 130055-26-2827EhudhnerYxzutlgr codes; unclassified (1 source)Other specified health status; Translations: [Other specified health status]Onset: 51-59-3388OrksuafmBenofbvql and history of mental health and substance abuse codes (20 sources)Ex-smoker; Translations: [Personal history of tobacco use]Onset: 363715-87-9072RmniqzqoWkajjtx on above:05/17/23 quit;Substance-related disorders (20 sources)Nicotine dependence, cigarettes, uncomplicated; Translations: [Smoker]Onset: 02-23-2015 Resolved: 399367-42-8092KbptootMstfmyq on above:1/2 dozen cigarettes; Unclassified (3 sources)Abdominal aortic aneurysm (AAA) without rupture, unspecified part I71.40Unclassified (3 sources)Infrarenal abdominal aortic aneurysm (AAA) without rupture I71.43 Unclassified (20 sources)Onset: 12-31-2023 Resolved: 873641-71-0913Urxsdglbpbeh (1 source)Abdominal aortic aneurysm, without rupture, unspecified; Translations: [Abdominal aortic aneurysm, without rupture, unspecified]Onset: 09-10-2024 Unclassified (1 source)Abdominal aortic aneurysm, without rupture, unspecified (CMS-HCC); Translations: [Abdominal aortic aneurysm, without rupture, unspecified (CMS-HCC)]Onset: 05-21-2024 Results Test NameValueInterpretationReference RangeFacilityAmbulatory Visit Summaryon 65-30-9736Fuwgmfifmf Visit SummaryAmbulatory Visit Summary ALEX ANDERSON :1945 Visit Date:03/10/2025 Ambulatory Visit Instructions Your Diagnosis Urinary retention Your Care Team Attending Physician - Elvi CHAUDHARI, TC, Blanca Hadley Primary Care Physician - IDANIA [...] to do next Scheduled Follow-Up Appointments 2024 11:00 AM EST With: TC Boles APRN, Blanca Hadley Where: [facility] [address] [address]- Medications What How Much When Instructions Unchanged [...] elemental iron) 45 mg oral tablet, extended release)1 Tablets By Mouth Every day Unchanged furosemide [...] signed up for this yet, please contact [employer] at [phone] to get signed up today. Language Information Language assistance services are available as needed. [facility] ShawErythrocyte distribution width Auto (RBC) [Ratio]Ordered By: Celia Griffin on 28-71-9267Ueuiaiplrfc distribution width (RBC) [Ratio]15.7 %High11.0-15.0[facility] Glomerular filtration rate (GFR) estimation in non- AmericanOrdered By: Celia Griffin on 52-28-2331WFS/1.73 sq M.predicted among non-blacks MDRD (S/P/Bld) [Vol rate/Area]28 mL/min/{1.73_m2}Low>=60 mL/min/1.73m [address] [place] [address] CBC WITH PLATELET NO DIFFERENTIALon 02-28-2025 Erythrocyte distribution width (RBC) [Ratio]15.7 %High11.0 - 15.0 %[facility] HealthcareHematocrit (Bld) [Volume fraction]38.4 %Low42.0 - 54.0 %[facility] HealthcareHemoglobin (Bld) [Mass/Vol]11.6 g/dLLow14.0 - 18.0 g/dLMetropolitan Saint Louis Psychiatric Center Interpretation and review of laboratory resultsAbnormalUniversity of Missouri Children's HospitalH (RBC) [Entitic mass]26.6 pg25.9 - 34.0 pgUniversity of Missouri Children's HospitalHC (RBC) [Mass/Vol]30.2 g/dL 29.9 - 35.2 g/dLUniversity of Missouri Children's HospitalV (RBC) [Entitic vol]88.1 fL80.0 - 94.0 fLMetropolitan Saint Louis Psychiatric CenterPlatelet mean volume (Bld) [Entitic vol]10 fL9.5 - 13.5 fLMetropolitan Saint Louis Psychiatric CenterTBH KHI503MAQNNevada Regional Medical CenterTB RBC4.36LowJefferson Memorial Hospital WBC7.1NOMS [facility] Medical CenterCLINISYNRoper HospitalHematocrit Auto (Bld) [Volume fraction]Ordered By: Celia Griffin on 28-64-2691Vqvwwetkax (Bld) [Volume fraction]38.4 %Low 42.0-54.0[facility] CenterHemoglobin [Mass/volume] in Blood Ordered By: Celia Griffin on 77-70-0264Amnphxxgtn (Bld) [Mass/Vol]11.6 g/dLLow 14.0-18.0[facility] CenterIron binding capacity [Mass/volume] in Serum or PlasmaOrdered By: Celia Griffin on 21-99-7434Gjbo binding capacity [Mass/Vol]301.0 ug/dL250.0-450.0[facility] CenterIron saturation [Mass Fraction] in Serum or PlasmaOrdered By: Celia Griffin on 32-44-6422Pjrh saturation [Mass fraction]9.6 %[facility] CenterLaboratory - Chemistry and Chemistry - challengeOrdered By: Celia Griffin on 43-74-4990Erdniuf [Mass/Vol]3.8 g/dL3.4-5.0[facility] CenterCalcium [Mass/Vol]8.6 mg/dL8.5-10.1FTriHealth McCullough-Hyde Memorial HospitalChloride [Moles/Vol]108 mmol/LHigh 98-107[facility] CenterCO2 [Moles/Vol]27.9 mmol/L21.0-32.0 [facility] CenterCobalamin (Vitamin B12) [Mass/Vol]689 pg/mL 232-1245[facility] Medical CenterComment on above:Performed at: - [facility] [id number] Director: Morgan Carpenter PhD, Phone: [phone] [Mass/Vol]2.27 mg/dLHigh0.70-1.30 [facility] CenterFerritin [Mass/Vol]59.0 ng/mL26.0-388.0 [facility] CenterGFR/1.73 sq M.predicted MDRD (S/P/Bld) [Vol rate/Area]34 mL/min/{1.73_m2}Low>=60 mL/min/1.73m 2FTriHealth McCullough-Hyde Memorial HospitalGlucose [Mass/Vol]105 mg/yH94-437EotktjzfvMercy Health Springfield Regional Medical CenterIron [Mass/Vol]29.0 ug/dLLow65.0-175.0[facility] CenterMagnesium [Mass/Vol]2.3 mg/dL1.8-2.4FTriHealth McCullough-Hyde Memorial HospitalPotassium [Moles/Vol] 3.8 mmol/L3.5-5.1FOhioHealth Berger Hospitalodium [Moles/Vol]145 mmol/L 136-145[facility] Medical CenterUrate [Mass/Vol]6.5 mg/dL3.5-7.2 [facility] CenterUrea nitrogen [Mass/Vol]31.0 mg/dLHigh7.0-18.0 [facility] CenterUrea nitrogen/Creatinine [Mass ratio]13.7 mg/mg [facility] CenterLaboratory - UrinalysisOrdered By: Celia Griffin on 07-08-0529Nutkzqe (U) [Mass/Vol]7.7 mg/dL<=11.9[facility] CenterLeukocytes [#/volume] corrected for nucleated erythrocytes in Blood by Automated counOrdered By: Celia Griffin on 77-31-9019JCZ corrected for nucl RBC Auto (Bld) [#/Vol]7.1 10 3/uL4.0-11.0[facility] CenterMCH Auto (RBC) [Entitic mass]Ordered By: Celia Griffin on 33-94-3622JHE (RBC) [Entitic mass]26.6 pg25.9-34.0[facility] Medical CenterMCHC Auto (RBC) [Mass/Vol] Ordered By: Celia Griffin on 11-99-8503QSYT (RBC) [Mass/Vol]30.2 g/dL29.9-35.2 [facility] CenterMCV Auto (RBC) [Entitic vol]Ordered By: Celia Griffin on 37-48-8386KFU (RBC) [Entitic vol]88.1 fL80.0-94.0[facility] CenterNo Panel InformationOrdered By: Celia Griffin on - Hydroxy Vitamin D Total56.8 ng/mLMercy Health Springfield Regional Medical CenterComment on above:<20 ng/mL Vit D czgjqsugf97-<30 ng/mL Vit D ajreskolajnk38-603 ng/mL Vit D sufficient>100 ng/mL Potential ToxicityFolate>20.0 ng/mL>3.0[facility] CenterComment on above:A serum folate concentration of less than 3.1 ng/mL isconsidered to represent clinical deficiency.Performed at: SurveypalNewark [facility] Medical CenterKooqsu[address] [place] [id number] Director: Morgan Carpenter PhD, Phone: [phone] Hormone (Intact)69 pg/rKPdundydo29-74TjdpkhfpiMercy Health Springfield Regional Medical CenterComment on above:Performed at: [facility] [address] [place], [place] [id number] Director: Morgan Carpenter PhD, Phone: [phone] Level3.1 mg/dL2.6-4.7FTriHealth McCullough-Hyde Memorial HospitalUrine Random Nvknrxryam17.47 mg/dLLow20.00-300.00[facility] Platelet mean volume Auto (Bld) [Entitic vol]Ordered By: Celia Griffin on 19-06-7461Gnigvfjv mean volume (Bld) [Entitic vol]10.0 fL9.5-13.5FTriHealth McCullough-Hyde Memorial HospitalPlatelets Auto (Bld) [#/Vol]Ordered By: Celia Griffin on 32-27-7706Upxfxxvum (Bld) [#/Vol]193 10 3/tY578-023ReukyplafMercy Health Springfield Regional Medical CenterRBC Auto (Bld) [#/Vol]Ordered By: Celia Griffin on 09-99-1831SGN (Bld) [#/Vol]4.36 10 6/uLLow4.70-6.10[facility] Southerum or plasma anion gap determinationOrdered By: Celia Griffin on 92-07-0225Gezqp gap [Moles/Vol]12.9 mmol/LFTriHealth McCullough-Hyde Memorial HospitalUrine protein/creatinine ratioOrdered By: Celia Griffin on 06-17-9480Urukakc/Creatinine (U) [Ratio]0.47 [facility] CenterAmbulatory Visit Summaryon 38-67-7893Toitmbxpkg Visit SummaryAmbulatory Visit Summary ALEX ANDERSON Meño :1945 Visit Date:02/10/2025 Ambulatory Visit Instructions Your Diagnosis Urinary retention Your Care Team Attending Physician - Elvi CHAUDHARI, TC, Blanca Hadley Primary Care Physician - IDANIA [...] 1:50 PM EDT With: TC Boles APRN, Blanca Hadley Where: [facility] [address] [address]- Medications What How Much When Instructions Unchanged [...] elemental iron) 45 mg oral tablet, extended release)1 Tablets By Mouth Every day Unchanged furosemide [...] signed up for this yet, please contact [employer] at [phone] to get signed up today. Language Information Language assistance services are available as needed. 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 Diagnosis Summary - The UroVysion FISH study detected normal copy numbers for chromosomes 3, 7, 17,and 9p21. 69 cells were analyzed in this evaluation. No evidence of aneuploidy for chromosomes 3, 7, or 17 or deletion of the 9p21 locus was found in cells present in this specimen. This test does not rule out the possibility of a low grade non-invasive papillary urothelial carcinoma. These findings should be correlated with cytology and cystoscopy results. * CPT: 09642, 95232. Microscopic Notes - Microscopic Notes - Abnormal cells 9p21 deletions: Abnormal cells aneploid events: Total cells analyzed: 69 Hematuria: Gross Description Site ID:A color Light Yellow fixative Alcohol Received 100 mls of clear light yellow fluid with thepatient's name and, Bladder Wash on the vial. Electronically signed by : on: 11/29/2024 06:34:10Performed By: #### [id number] #### [facility] [address] [place], [place] [address]Fossxugpfo Visit Summaryon 76-49-7826Xijxquxwda Visit Summary Ambulatory Visit Summary ALEX ANDERSON [...] Eboni Anderson PA-C Where: [facility] [address] [place] [address] [place] [address]- You Need to Schedule the Following Appointments Follow Up with ARLENE CASILLAS, ADRIA Sterling When: Where: [facility] [address], [place] [address]- Medications What How Much When Instructions Unchanged cephalexin (Keflex 250 mg Cap) 1 Capsules By Mouth Friday Duration: 30 Days Unchanged cephalexin (Keflex 500 mg Cap) 1 Capsules By Mouth Every day Take 1 capsule the day before the procedure and 1 capsule after the procedure Unchanged albuterol (Albuterol (Eqv-ProAir HFA) 90 mcg/ inh inhalation aerosol) Contact prescribingphysician if questions or concerns Unchanged amiodarone (amiodarone [...] elemental iron) 45 mg oral tablet, extended release)1 Tablets By Mouth Every day Contact prescribing [...] History of bladder c (more content not included)...[facility] 27-03-3083CdmazmkncNymksdaia From: Dana Rivas To: EU - Recalls Samuels; Sent: 08/06/2024 15:16:19 EDT Show up: 01/24/2025 15:16:00 EDT Subject: cysto/fish/cytol Due Date/Time: 02/21/2025 15:16:00 EDT Reminder/Recall Patient is due in Mar 2025 for 6 month cysto/fish/cytol, bt ck Patient is due in October 2025 for 1 year cysto/FISH/cytol, bt ckNoSuburban Community Hospital & Brentwood HospitalUroVysion Fish and Urine Cyto ([facility])on 09-22-1576XBAM Method of ExtractionBladder WashSelect Medical [facility] Clinic Rehabilitation Hospital, Edwin ShawComment on above: Performed By: #### [id number] #### [facility] [address] [place], [place] [address]WZFR Number of Ifau8Cxxkpky Interpretation [facility] CenterComment on above:Performed By: #### [id number] #### [facility] [address] [place], [place] [address]XEDH SpecimenBladder [facility] Comment on above:Performed By: #### [id number] #### [facility] [address] [place], [place] [address]UPMF Type of ServiceTechnical OnlySelect Medical [facility] Clinic Rehabilitation Hospital, Edwin ShawComment on above:Performed By: #### [id number] #### [facility] [address] [place], [place] [address]Qkrzhca Office/Clinic Noteon 53-68-2942Lgnrbtx Office/Clinic NoteUrology Office/Clinic Note Chief Complaint Cysto HPI Staff 78 year old male presents for cysto/Bladder wash/Zapien change (bt ck) History of Present Illness [...] suite. Patient is placed in supine position. Zapien removed. Patient prepped in the usual fashion with Betadine solution. 2% Xylocaine Jelly is placedper Urethra. After waiting several minutes, the Cystoscope [...] of fever, chills, or flank pain. The Zapien was changed in the officetoday with no difficulties, and flushed appropriately to [...] urine, unspecified) S/p Rezum 06/10/23. Pt had zapien changed today. -Cont monthly zapien changes Follow-up With When Contact Information ARLENE CASILLAS, Katia Hall, URL [facility] [address], [place] [address]- Additional Instructions: 1 yr surveillance cysto/bt ck/FISH/cytol Patient Education Indwelling Urinary Catheter Insertion, Care After Cancer Screening for Males Citlalli Almendarez, personally scribed for Dr. Samuels on 11/16/2024 14:44:28. . Documentation recorded by the scribe, Citlalli Rushing, accurately reflects the services(s) I performed and decisions made by me. Authenticated by Dr. Samuels on 11/16/2024 14:52:28. Problem List/Past Medical History [...] mg oral tablet, extended (more content not included)...[facility] ShawComment on above:Result Comment: Electronically Signed By: Katia SAMUELS MD\.br\Date and Time Signed: 11/16/24 14:52 EDT\.br\Electronically Co-Signed By: Citlalli Rushing\.br\Date and Time Co-Signed: 11/16/24 14:44 EDTAmbulatory Visit Summaryon 47-75-9288Hwnvmfgbau Visit SummaryAmbulatory Visit Summary ALEX ANDERSON :1945 Visit Date:11/02/2024 Ambulatory Visit Instructions Your Care Team Attending Physician - HEATHER OMALLEY PA-C Primary Care Physician - IDANIA CASILLAS, STANLEY [...] Follow-Up Appointments Friday 2:00 PM EDT With: ARLENE CASILLAS, Katia Hall Where: [facility] [address] [place] [address]- Medications What How Much When Instructions Unchanged [...] elemental iron) 45 mg oral tablet, extended release)1 Tablets By Mouth Every day Unchanged furosemide [...] with urinary obstruction COPD with emphysema Dementia Zapien catheter problem Foreign body in bladder Gross [...] you for choosing us for your care. [facility] ShawErythrocyte distribution width Auto (RBC) [Ratio]on 23-97-1598Jxvctywiqpa distribution width (RBC) [Ratio] Erythrocyte distribution width [Ratio] by Automated xmsdfBzhl54.0-15.0[facility] CenterEstimated glomerular filtration rate (GFR) non- Americanon 34-36-8926FOQ/1.73 sq M.predicted among non-blacks MDRD (S/P/Bld) [Vol rate/Area]Estimated glomerular filtration rate (GFR) non- Low>=60 mL/min/1.73m [address] [place] [address] CBC WITH PLATELET NO DIFFERENTIALon 98-63-9196Okrrwzshixm distribution width (RBC) [Ratio]18.7 %High 11.0 - 15.0 %[facility] HealthcareHematocrit (Bld) [Volume fraction]35.8 %Low42.0 - 54.0 %[facility] HealthcareHemoglobin (Bld) [Mass/Vol]10.7 g/dLLow14.0 - 18.0 g/dLMetropolitan Saint Louis Psychiatric CenterInterpretation and review of laboratory resultsAbnormalCox Monett (RBC) [Entitic mass]24 pgLow25.9 - 34.0 pgUniversity of Missouri Children's HospitalHC (RBC) [Mass/Vol]29.9 g/dL29.9 - 35.2 g/dLUniversity of Missouri Children's HospitalV (RBC) [Entitic vol] 80.4 fL80.0 - 94.0 fLMetropolitan Saint Louis Psychiatric CenterPlatelet mean volume (Bld) [Entitic vol]9.6 fL9.5 - 13.5 fLJefferson Memorial Hospital OAX629LTLXNevada Regional Medical CenterTB RBC4.45LowNOHannibal Regional Hospital WBC6.7[facility]iatric CenterCLINISYNCNOMS HealthcareHematocrit Auto (Bld) [Volume fraction]on 88-85-2310Beolfimvwy (Bld) [Volume fraction]Hematocrit [Volume Fraction] of Blood by Automated tddqpKub02.0-54.0[facility] CenterHemoglobin [Mass/volume] in Bloodon 12-75-5169Qlfbpjxzvs (Bld) [Mass/Vol]Hemoglobin [Mass/volume] in AbjwtFkw06.0-18.0[facility] CenterIron binding capacity [Mass/volume] in Serum or Plasmaon 16-84-7294Hbxo binding capacity [Mass/Vol]Iron binding capacity [Mass/volume] in Serum or Gddtgn537.0-450.0[facility] CenterIron saturation [Mass Fraction] in Serum or Plasmaon 70-35-3561Djku saturation [Mass fraction] Iron saturation [Mass Fraction] in Serum or PlasmaMercy Health Springfield Regional Medical CenterLaboratory - Chemistry and Chemistry - challengeon 54-09-4741Kbuwuhl [Mass/Vol]3.3 g/dLLow3.4-5.0[facility] CenterCalcium [Mass/Vol] 8.7 mg/dL8.5-10.1FTriHealth McCullough-Hyde Memorial HospitalChloride [Moles/Vol]104 mmol/L 98-107[facility] Medical CenterCO2 [Moles/Vol]29.3 mmol/L21.0-32.0 [facility] Medical CenterCobalamin (Vitamin B12) [Mass/Vol]593 pg/mL 232-1245[facility] Medical CenterComment on above:Performed at: [employer] [facility] [address] [id number] Director: Morgan Carpenter PhD, Phone: [phone] [Mass/Vol]2.17 mg/dLHigh0.70-1.30 [facility] CenterGFR/1.73 sq M.predicted MDRD (S/P/Bld) [Vol rate/Area]36 mL/min/{1.73_m2}Low>=60 mL/min/1.73m 2FTriHealth McCullough-Hyde Memorial HospitalGlucose [Mass/Vol]95 mg/qO72-814XdpwfkrvsMercy Health Springfield Regional Medical CenterIron [Mass/Vol]34.0 ug/dLLow65.0-175.0[facility] CenterMagnesium [Mass/Vol]2.1 mg/dL1.8-2.4FTriHealth McCullough-Hyde Memorial HospitalPotassium [Moles/Vol] 3.4 mmol/LLow3.5-5.1FOhioHealth Berger Hospitalodium [Moles/Vol]144 mmol/F654-447YffxxtiaeMercy Health Springfield Regional Medical CenterUrea nitrogen [Mass/Vol]35.0 mg/dL High7.0-18.0[facility] CenterUrea nitrogen/Creatinine [Mass ratio]16.1 mg/mgMercy Health Springfield Regional Medical CenterLaboratory - Urinalysison 93-63-9861Wznktdf (U) [Mass/Vol]54.5 mg/dLHigh<=11.9[facility] CenterLeukocytes [#/volume] corrected for nucleated erythrocytes in Blood by Automated counon 92-27-2100FEU corrected for nucl RBC Auto (Bld) [#/Vol] Leukocytes [#/volume] corrected for nucleated erythrocytes in Blood by Automated coun4.0-11.0[facility] Medical CenterMCH Auto (RBC) [Entitic mass]on 56-13-7821OLF (RBC) [Entitic mass]MCH [Entitic mass] by Automated countLow 25.9-34.0[facility] Medical CenterMCHC Auto (RBC) [Mass/Vol]on 23-11-1424ZLLV (RBC) [Mass/Vol]MCHC [Mass/volume] by Automated count29.9-35.2 [facility] CenterMCV Auto (RBC) [Entitic vol]on 53-52-3733QUK (RBC) [Entitic vol]MCV [Entitic volume] by Automated count80.0-94.0[facility] CenterNo Panel Informationon 30-42-5981Oobtt Random Creatinine 77.97 mg/dL20.00-300.00[facility] Medical CenterFolate39.70 ng/mL 8.60-58.90[facility] CenterPhosphorus Level3.4 mg/dL2.6-4.7 [facility] Medical CenterPlatelet mean volume Auto (Bld) [Entitic vol]on 95-95-5001Jfkfshjs mean volume (Bld) [Entitic vol]Platelet mean volume [Entitic volume] in Blood by Automated count9.5-13.5FTriHealth McCullough-Hyde Memorial Hospital Platelets Auto (Bld) [#/Vol]on 49-40-1351Mchkgjeux (Bld) [#/Vol]Platelets [#/volume] in Blood by Automated byzpo754-042UkhtkkxcfMercy Health [facility] Center RBC Auto (Bld) [#/Vol]on 86-97-4799PXL (Bld) [#/Vol]Erythrocytes [#/volume] in Blood by Automated countLow4.70-6.10[facility] Southerum or plasma anion gap determinationon 23-42-4021Epoyx gap [Moles/Vol]Serum or plasma anion gap determinationMercy Health Springfield Regional Medical CenterUrine protein/creatinine ratioon 27-56-7651Odsnufs/Creatinine (U) [Ratio]Urine protein/creatinine ratio [facility] CenterCreatinine (Bld) [Mass/Vol]Ordered By: Margarito Valentine on 79-55-7411Cwehinkmpu [Mass/Vol]Whole blood creatinine measurement High0.6-1.3FTriHealth McCullough-Hyde Memorial HospitalComment on above:ER/ESD physician is notified/shown all ISTAT results.Critical values may be confirmed by laboratory testing ifdeemed necessary by ER attending doctor.INR in Platelet poor plasma by Coagulation assayOrdered By: Margarito Valentine on 40-26-6498WCQ Coag (PPP) [Relative time]INR in Platelet poor plasma by Coagulation assayMercy Health Springfield Regional Medical CenterComment on above:INR Therapeutic Range A) Pre- and Peroperative OAT started two weeks before surgery. NOT HIP SURGERY: 1.5 - 2.5 HIP SURGERY: 2 - 3B) Primary and secondary prevention of venous THROMBOSIS: 2 - 3C) Active venous thrombosis, pulmonary embolismand prevention of recurrent venous thrombosis: 2 - 3D) Prevention of arterial thromboembolismincluding patients with mechanical heart valves: 3 - 4.5ISTAT XRay CREon 10-11-2024 Creatinine [Mass/Vol]2.1 mg/dLHigh0.6-1.3The [facility] Physician GroupComment on above:Result Comment: ER/ESD physician is notified/shown all ISTAT results. Critical values may be confirmed by laboratory testing if deemed necessary by ER attending doctor.Performed By: #### JHONNY LOZANO #### [facility] [address] [place] [address] USAISTAT GFR31.235NormHCA Florida Blake Hospital Physician GroupComment on above:Result Comment: PERFORMED BY: [place] [id number] PATHOLOGIST PROCUREMENT ASSISTANT ED CRUZ M.D.Performed By: #### MAISHA LOZANOU #### [place] [id number] USANo Panel InformationOrdered By: Margarito Valentine on 01-74-8321Qugqomq Estimated GFR (eGFR)31.235[facility] Partial Thromboplastin Timeon 49-22-2504lMPJ Coag (Bld) [Time]36.8 sHigh 25.1-36.5The [facility] Physician GroupComment on above:Result Comment: A hematocrit value greater than 55% may lead to inaccurate results in coagulation testing. Patients having hematocrit values >55% require a special collection tube for coagulation studies. Please contact the laboratory at [phone] for redraw instructions. PERFORMED BY: [place] [id number] PATHOLOGIST PROCUREMENT ASSISTANT ED CRUZ M.D.Performed By: #### PTT, PT #### [place] [id number] USAProthrombin Time INRon 73-38-7560PIW Coag (PPP) [Relative time]1.6 {INR}NormalThe [facility] Health Cabarrus Physician GroupComment on above:Result Comment: INR Therapeutic Range A) Pre- and [...] patients with mechanical heart valves: 3 - 4.5Performed By: #### PTT, PT #### [place] [address] USAPT Coag (PPP) [Time]17.9 sHigh9.0-12.9The [facility] Physician GroupComment on above:Result Comment: A hematocrit value greater than 55% may lead to inaccurate results in coagulation testing. Patients having hematocrit values >55% require a special collection tube for coagulation studies. Please contact the laboratory at [phone] for redraw instructions.Performed By: #### PTT, PT #### [facility] [address] [place] [address] USAProthrombin time (PT)Ordered By: Margarito Valentine on 72-91-5814DM Coag (PPP) [Time]Prothrombin time (PT)High9.0-12.9[facility] CenterComment on above:A hematocrit value greater than 55% may lead to inaccurate results in coagulation testing. Patientshaving hematocrit values >55% require a special collection tube for coagulation studies. Please c ontact the laboratory at [phone] for redraw instructions.aPTT in Platelet poor plasma by Coagulation assayOrdered By: Margarito Valentine on 54-44-0779cGIV Coag (PPP) [Time]Activated partial thromboplastin time (aPTT) in platelet poor plasma by coagulation aHigh25.1-36.5FTriHealth McCullough-Hyde Memorial HospitalComment on above:A hematocrit value greater than 55% may lead to inaccurate results in coagulation testing. Patientshaving hematocrit values >55% require a special collection tube for coagulation studies. Please contact the laboratory at [phone] for redraw instructions.Cult,Urineon 64-51-3261Tvcw,UrineSpecimen Description .CLEAN CATCH URINE Special Requests Site: Urine Culture ENTEROBACTER CLOACAE COMPLEX >100,000 CFU/ML Report Status FINAL 10/06/2024 SUSCEPTIBILITY Organism ENCLCX Method RITESH Gentamicin <=1 SUSCEPTIBLE Levofloxacin 1 INTERMEDIATE Nitrofurantoin 64 INTERMEDIATE Piperacillin/Tazobactam 64 INTERMEDIATE Tobramycin <=1 SUSCEPTIBLE Trimethoprim/Sulfa <=20 SUSCEPTIBLE SUSCEPTIBILITY Organism ENCLCX Method ROGERS CARRENO Ceftriaxone SUSCEPTIBLESusceptibleMercy Promedica Bay Park HospitalComment on above: Performed By: #### OBS #### [facility] [address] [place], [place] [id number] Safety Sitter: Milo Engle DOMHPT CULT,URINEon 51-64-7316Pyjolkxzcjdthf and review of laboratory resultsAbTrinity Health LivoniaPT CULT,URINESpecimen Description .CLEAN CATCH URINENORI HealthcarePT CULT,URINESpecial Requests Site: UrineNORI HealthcareMHPT CULT,URINECulture ENTEROBACTER CLOACAE COMPLEX >100,000 CFU/MLAbnormalNORI HealthcarePT CULT,URINEReport Status FINAL 10/06/2024NORI HealthcareMHPT CULT,URINEMethod MICNORI HealthcarePT CULT,URINE Gentamicin <=1 SUSCEPTIBLESusceptibleNORI HealthcarePT CULT,URINELevofloxacin 1 INTERMEDIATEIntermediateNOMS HealthcarePT CULT,URINENitrofurantoin 64 INTERMEDIATEIntermediateNOMS HealthcarePT CULT,URINEPiperacillin/Tazobactam 64 INTERMEDIATEIntermediateNORI HealthcarePT CULT,URINETobramycin <=1 SUSCEPTIBLESusceptibleNORI HealthcarePT CULT,URINETrimethoprim/Sulfa <=20 SUSCEPTIBLESusceptibleNORI HealthcarePT CULT,URINEMethod ROGERS CARRENO SusceptibleNORI HealthcarePT CULT,URINECeftriaxone SUSCEPTIBLESusceptibleRIVERTON HOSPITAL HealthcareOriginal Ordering Provider: WAQAR MIRANDALINISYNCRIVERTON HOSPITAL HealthcareNo Panel Informationon 18-71-5065HOLJ CULT,URINE SUSCEPTIBILITY SusceptibleNORI HealthcarePT CULT,URINEOrganism ENCLCXSusceptibleRIVERTON HOSPITAL HealthcareBasic Metab w/rfx MGon 58-64-7760Amxly gap [Moles/Vol]9 mmol/LNormal 9-16[facility] Centercy [facility] Park HospitalComment on above:Performed By: #### OBS #### [facility] [address] [place] [address] Safety Sitter: Milo Engle DOCalcium [Mass/Vol]8.6 mg/dLNormal8.6-10.4 [facility] CenterComascension macomb on above:Performed By: #### OBS #### [facility] [address] [place] [address] Safety Sitter: Milo Engle DOChloride [Moles/Vol]105 mmol/AFwhxrr43-563 [facility] CenterComascension macomb on above:Performed By: #### OBS #### [facility] [address] [facility] [place] [address] Safety Sitter: Milo Engle DOCO2 [Moles/Vol]27 mmol/BXphmnv43-72ArdapCoshocton Regional Medical CenterComment on above:Performed By: #### OBS #### [facility] [address] [place] [address]. [place] [address] Safety Sitter: Milo Engle DOCreatinine [Mass/Vol]1.9 mg/dLHigh0.7-1.2 [facility] CenterComment on above:Performed By: #### OBS #### [facility] [address] [place] [address] Safety Sitter: Milo Engle DOGFR/1.73 sq M.predicted among non-blacks MDRD (S/P/Bld) [Vol rate/Area]35 mL/min/{1.73_m2}Low>60[facility] Comment on above:Result Comment: These results are not intended for [...] or following therapy that affects renal tubular secretion.Performed By: #### OBS #### [facility] [address] [place] [address]. [place] [address] Safety Sitter: Milo Engle DOGlucose [Mass/Vol]97 mg/lAPnukcj42-00KsllbGood Samaritan HospitalComment on above:Performed By: #### OBS #### [facility] [address] [place] [address]. [place] [address] Safety Sitter: Milo Engle DOPotassium [Moles/Vol]3.3 mmol/LLow3.7-5.3 [facility] CenterComment on above:Performed By: #### OBS #### [facility] [address] [facility] [place] [address] Safety Sitter: Milo Engle DOSodium [Moles/Vol]141 mmol/AWnjwhs158-209 [facility] CenterComascension macomb on above:Performed By: #### OBS #### [facility] [address] [facility] [place] [address] Safety Sitter: Milo Engle DOUrea nitrogen [Mass/Vol]24 mg/dLHigh8-23[facility] Centercy [facility] HospitalComascension macomb on above:Performed By: #### OBS #### [facility] [address] [facility] [place] [address] Safety Sitter: Milo Engle DOBasic Metabolic Panel w/ Reflex to MGon 51-83-3289Fwbir gap [Moles/Vol]9 mmol/L9 - 16 mmol/LBon [facility] Calcium [Mass/Vol]8.6 mg/dL8.6 - 10.4 mg/dLBon [facility] HealthChloride [Moles/Vol]105 mmol/L98 - 107 mmol/LBon [facility] HealthCO2 [Moles/Vol]27 mmol/L20 - 31 mmol/LBon SecSelect Medical Cleveland Clinic Rehabilitation Hospital, BeachwoodCreatinine [Mass/Vol]1.9 mg/dLHigh 0.7 - 1.2 mg/dLBon SecOchsner Medical Center HealthEst, Glom Filt Vcxj21Blj- PINFBon Mansfield HospitalComment on above: These results are not intended [...] therapy that affects renal tubular secretion. Glucose [Mass/Vol]97 mg/dL74 - 99 mg/dLBon [facility]field HospitalInterpretation and review of laboratory resultsAbnormalBon SecOthello Community HospitalCLEAR HealthPotassium [Moles/Vol]3.3 mmol/LLow3.7 - 5.3 mmol/LBon [facility]field HospitalSodium [Moles/Vol]141 mmol/L136 - 145 mmol/LBon [facility] HospitalUrea nitrogen [Mass/Vol]24 mg/dLHigh8 - 23 mg/dLBon [facility] CenterCBC with Auto Differentialon 65-18-3679Dfbhfohbh (Bld) [#/Vol]0.05 10*3/uL [facility] SystemBasophils/100 WBC (Bld)1 %0 - 2 %[facility] SystemEosinophils (Bld) [#/Vol]0.2 10*3/uLBon [facility] Hospital Eosinophils/100 WBC (Bld)4 %0 - 4 %[facility] SystemErythrocyte distribution width (RBC) [Ratio]21.2 %High11.5 - 14.9 %[facility] Hematocrit (Bld) [Volume fraction]35.3 %Low41 - 53 %[facility] Hemoglobin (Bld) [Mass/Vol]11.5 g/dLLow13.5 - 17.5 g/dLBon [facility] Immature granulocytes (Bld) [#/Vol]0 10*3/uLBon [facility] HospitalImmature granulocytes/100 WBC (Bld)0 %0Bon [facility] HospitalInterpretation and review of laboratory resultsAbnormalBon [facility] HospitalLymphocytes/100 WBC (Bld)30 %24 - 44 %[facility] SystemLymphocytes/100 WBC (Bld)1.53 %[facility] CenterH (RBC) [Entitic mass]24.8 pgLow26 - 34 pgBon [facility] Hospital MCHC (RBC) [Mass/Vol]32.7 g/dL31 - 37 g/dLBon Mansfield HospitalMCV (RBC) [Entitic vol]75.8 fLLow80 - 100 fLWellmont Health SystemMonocytes/100 WBC (Bld)7 %1 - 7 %[facility] SystemMonocytes/100 WBC (Bld)0.36 %[facility] SystemMorphology Ian (Bld) [Interp]ANISOCYTOSIS PRESENTWellmont Health SystemMorphology Ian (Bld) [Interp]HYPOCHROMIA PRESENTWellmont Health System Morphology Ian (Bld) [Interp]FEW ELLIPTOCYTESWellmont Health System Neutrophils/100 WBC (Bld)58 %36 - 66 %[facility] SystemPlatelet mean volume (Bld) [Entitic vol]8.1 fL6.0 - 12.0 fLWellmont Health SystemPlatelets (Bld) [#/Vol]173 10*3/uLBon [facility]field HospitalRBC (Bld) [#/Vol]4.65 10*6/uL4.5 - 5.9 m/uLWellmont Health SystemSegmented neutrophils/100 WBC (Bld)2.96 %[facility] SystemWBC other (Bld) [#/Vol]5.1Bon [facility] CenterCBC with Diffon 00-92-1666Nwg. Basophil0.05 k/uLNormal 0.0-0.2[facility] HospitalComment on above:Performed By: #### OBS #### [facility] [address] [place] [address] Safety Sitter: Milo Engle DOAbs.Imm.Granulocyte0.00 k/uLNormal0.00-0.30 [facility] CenterComascension macomb on above:Performed By: #### OBS #### [facility] [address] [place] [address] Safety Sitter: Milo Engle DOAbs.Neutrophil (Seg)2.96 k/uLNormal1.3-9.1 [facility] CenterComascension macomb on above:Performed By: #### OBS #### [facility] [address] [place] [address] Safety Sitter: Milo Engle DOBasophils/100 WBC (Bld)1 %Normal0-2[facility] Park HospitalComment on above:Performed By: #### OBS #### [facility] [address] [place] [address] Safety Sitter: Milo Egnle DOEosinophils (Bld) [#/Vol]0.20 10*3/uLNormal 0.0-0.4[facility] CenterComascension macomb on above:Performed By: #### OBS #### [facility] [address] [place] [address] Safety Sitter: Milo Engle DOEosinophils/100 WBC (Bld)4 %Normal0-4[facility] CenterComascension macomb on above:Performed By: #### OBS #### [facility] [place] [address] Safety Sitter: Milo Engle DOImmature granulocytes/100 WBC (Bld)0 %Normal0 [facility] CenterComascension macomb on above:Performed By: #### OBS #### [facility] [address] [place] [address] Safety Sitter: Milo Engle DOLymphocytes (Bld) [#/Vol]1.53 10*3/uLNormal 1.0-4.8[facility] Centercy [facility] Park HospitalComascension macomb on above:Performed By: #### OBS #### [facility] [place] [address] Safety Sitter: Milo Engle DOLymphocytes/100 WBC (Bld)30 %Mdkiua13-72OlhneCoshocton Regional Medical CenterComascension macomb on above:Performed By: #### OBS #### [facility] [place] [address] Safety Sitter: Milo Engle DOMonocytes (Bld) [#/Vol]0.36 10*3/uLNormal 0.1-1.3[facility] HospitalComment on above:Performed By: #### OBS #### [facility] [address] [place] [address] Safety Sitter: Milo Engle DOMonocytes/100 WBC (Bld)7 %Normal1-7[facility] on above:Performed By: #### OBS #### [facility] [address] [place] [address] Safety Sitter: Milo Engle DOMorphology Ian (Bld) [Interp]ANISOCYTOSIS PRESENTNormalSouthwest General Health Center on above:Result Comment: HYPOCHROMIA PRESENT FEW ELLIPTOCYTESPerformed By: #### OBS #### [address] [address] Safety Sitter: Milo Engle DONeutrophil (Seg)58 %Fqgfzb49-22XnhxtSouthwest General Health Center on above:Performed By: #### OBS #### [facility] [address] [place] [address] Safety Sitter: Milo Engle DOErythrocyte distribution width (RBC) [Ratio] 21.2 %High11.5-14.9[facility] on above:Performed By: #### OBS #### [facility] [address] [place] [address] Safety Sitter: Milo Engle DOHematocrit (Bld) [Volume fraction]35.3 %Low 41-53[facility] on above:Performed By: #### OBS #### [facility] [address] [place] [address] Safety Sitter: Milo Engle DOHemoglobin (Bld) [Mass/Vol]11.5 g/dLLow 13.5-17.5[facility] on above:Performed By: #### OBS #### [facility] [address] [place] [address] Safety Sitter: Milo Engle DOMCH (RBC) [Entitic mass]24.8 axCez57-38LupliCoshocton Regional Medical CenterComascension macomb on above:Performed By: #### OBS #### [facility] [address] [place] [address] Safety Sitter: Milo Engle DOMCHC (RBC) [Mass/Vol]32.7 g/fCJzkzcw38-58 [facility] CenterComment on above:Performed By: #### OBS #### [facility] [address] [place] [address] Safety Sitter: Milo Engle DOMCV (RBC) [Entitic vol]75.8 fHSld71-150VctycCoshocton Regional Medical CenterComascension macomb on above:Performed By: #### OBS #### [facility] [address] [place] [address] Safety Sitter: Milo Engle DOPlatelet mean volume (Bld) [Entitic vol]8.1 fLNormal6.0-12.0[facility] CenterComascension macomb on above:Performed By: #### OBS #### [facility] [address] [place] [address] Safety Sitter: Milo Engle DOPlatelets (Bld) [#/Vol]173 10*3/uLNormal 150-450[facility] Medical CenterComascension macomb on above:Performed By: #### OBS #### [facility] [address] [place] [address] Safety Sitter: Milo Engle DORBC (Bld) [#/Vol]4.65 10*6/uLNormal4.5-5.9 [facility] on above:Performed By: #### OBS #### [facility] [address] [facility] [place] [address] Safety Sitter: Milo Engle DOWBC (Bld) [#/Vol]5.1 10*3/uLNormal3.5-11.0 [facility] CenterComment on above:Performed By: #### OBS #### [facility] [address] [facility] [place] [address] Safety Sitter: Milo Engle DOEKG 12 LeadOrdered By: All Cornejo on 31-50-1223Ceyzpn Jprr53AORGsh [employer] Work Phone: [phone] Fkdo12uesgegnFly [employer] Work Phone: P-R Qewekcdu909 msBon [employer] Work Phone: Q-T Aezwjeoi917 msHachimenroppi Work Phone: [phone] Kotxjhho663 msBon [employer] Work Phone: QTc Calculation (Bazett)471 msBon [employer] Work Phone: R Bentley-16degreesBon [employer] Work Phone: [phone] Goqu362ekqmagyFblHachimenroppi Work Phone: Ventricular Bqds85YLMTxh [employer] Work Phone: Bon [employer] Work Phone: EKG 12 Leadon 84-79-2285Dsynw rhythm with 1st degree A-V block Incomplete left bundle branch block ST & T wave abnormality, consider anterior ischemia Abnormal ECG When compared with ECG of 04-Oct-2024 15:45, (unconfirmed) No significant change was foundSELECT [facility] All Mcintosh DO - 10/05/2024 Sinus rhythm with 1st degree A-V block Incomplete left bundle branch block ST & T wave abnormality, consider anterior ischemia Abnormal ECG When compared with ECG of 04-Oct-2024 15:45, (unconfirmed) No significant change was found Bon [facility] Westn Binding Cap.on 10-05-2024% Fe Zwboxmghjz60 %Normal 20-55[facility] CenterComascension macomb on above:Performed By: #### OBS #### [facility] [address] [facility] [place] [address] Safety Sitter: Milo Engle DOIron [Mass/Vol]103 ug/pYDalurs14-810IlrhfCoshocton Regional Medical CenterComment on above:Performed By: #### OBS #### [facility] [address] [place] [address]. [place] [address] Safety Sitter: Milo Engle DOTotal Fe Binding Gsg939 ug/pZHzybmn429-163 [facility] CenterComascension macomb on above:Performed By: #### OBS #### [facility] [address] [facility] [place] [address] Safety Sitter: Milo Engle DOUnbound Fe Bind Rfa665 ug/kHSyezbn827-219 [facility] CenterComascension macomb on above:Performed By: #### OBS #### [facility] [address] [place] [address]. [place] [address] Safety Sitter: Milo Engle DOIron and TIBCon 95-08-0906Asqj [Mass/Vol]103 ug/dL61 - 157 ug/dLBon [facility] Westn binding capacity [Mass/Vol]250 ug/dL250 - 450 ug/dLBon SecSelect Medical Cleveland Clinic Rehabilitation Hospital, BeachwoodIron saturation [Mass fraction]41 % 20 - 55 %[facility] FtvsehLUSV480 ug/dL112 - 347 ug/dLBon [facility] Medical CenterMagnesiumon 19-59-6473Chrnscovu [Mass/Vol]2.3 mg/dL1.6 - 2.4 mg/dLBon Mid Dakota Medical CenterMagnesium [Mass/Vol]2.3 mg/dLNormal1.6-2.4[facility] Medical CenterComment on above: Performed By: #### OBS #### [facility] [address] [place] [address] Safety Sitter: Milo Engle DOPTon 04-29-8554NLF Coag (PPP) [Relative time] 2.0 {INR}NormalCoshocton Regional Medical CenterComascension macomb on above:Result Comment: Therapeutic Range: Moderate Anticoagulant Intensity: INR = 2.0-3.0 High Anticoagulant Intensity: INR = 2.5-3.5Performed By: #### OBS #### [facility] [address] [place] [address] Safety Sitter: Milo Engle DOPT Coag (PPP) [Time]24.9 sHigh11.8-14.6Mmarietta osteopathic clinicy [facility] Park HospitalComment on above:Performed By: #### OBS #### [facility] [address] [place] [address] Safety Sitter: Milo Engle DOProtime-INRon 25-37-1423VFO Coag (PPP) [Relative time]2 {INR}Bon [facility] HospitalComascension macomb on above: Therapeutic Range: Moderate Anticoagulant Intensity: INR = 2.0-3.0 High Anticoagulant Intensity: INR = 2.5-3.5 Interpretation and review of laboratory resultsAbnormalWellmont Health System PT Coag (PPP) [Time]24.9 sHighBon [facility] Basic Metab w/rfx MGon 07-31-3060Nyqwd gap [Moles/Vol]8 mmol/LLow9-16[facility] CenterComascension [place] on above:Performed By: #### BMPX, CDP, PT #### [facility] [address] [place] [address] Safety Sitter: Milo Engle DOCalcium [Mass/Vol]8.7 mg/dLNormal8.6-10.4 [facility] Medical CenterComment on above:Performed By: #### MAGY JAMES, PT #### [facility] [address] [facility] [place] [address] Safety Sitter: Milo Engle DOChloride [Moles/Vol]109 mmol/EChkl87-225LbsbgCoshocton Regional Medical CenterComascension macomb on above:Performed By: #### EMILYX CDP, PT #### [facility] [address] [facility] [place] [address] Safety Sitter: Milo Engle DOCO2 [Moles/Vol]27 mmol/RKnrody94-77QlabpCoshocton Regional Medical CenterComascension macomb on above:Performed By: #### MAGY JAMES, PT #### [facility] [address] [facility] [place] [address] Safety Sitter: Milo Engle DOCreatinine [Mass/Vol]1.8 mg/dLHigh0.7-1.2 [facility] CenterComascension [facility]omb on above:Performed By: #### MAGY JAMES, PT #### [facility] [address] [facility] [place] [address] Safety Sitter: Milo Engle DOGFR/1.73 sq M.predicted among non-blacks MDRD (S/P/Bld) [Vol rate/Area]38 mL/min/{1.73_m2}Low>60[facility] Comment on above:Result Comment: These results are not intended for [...] or following therapy that affects renal tubular secretion.Performed By: #### BMPX CDP, PT #### [facility] [address] [facility] [place] [address] Safety Sitter: Milo Engle DOGlucose [Mass/Vol]103 mg/gTPnjm52-90GcrxeGood Samaritan HospitalComment on above:Performed By: #### MAGY JAMES, PT #### [facility] [address] [facility] [place] [address] Safety Sitter: Milo Engle DOPotassium [Moles/Vol]3.8 mmol/LNormal3.7-5.3 [facility] CenterComascension [facility]omb on above:Performed By: #### MAGY JAMES, PT #### [facility] [address] [facility] [place] [address] Safety Sitter: Milo Engle DOSodium [Moles/Vol]144 mmol/SBnojpg194-337 [facility] CenterComascension [place] on above:Performed By: #### MAGY JAMES, PT #### [facility] [address] [facility] [place] [address] Safety Sitter: Milo Engle DOUrea nitrogen [Mass/Vol]22 mg/dLNormal8-23 [facility] CenterComascension [place] on above:Performed By: #### MAGY JAMES, PT #### [facility] [address] [place] [address] Safety Sitter: Milo Engle DOBasic Metabolic Panel w/ Reflex to MGon 73-82-1626Byzow gap [Moles/Vol]8 mmol/LLow9 - 16 mmol/LBon [facility]Select [facility] [place] Calcium [Mass/Vol]8.7 mg/dL8.6 - 10.4 mg/dLBon Secours Lima Memorial HospitalChloride [Moles/Vol]109 mmol/LHigh98 - 107 mmol/LBon Secours Lima Memorial HospitalCO2 [Moles/Vol] 27 mmol/L20 - 31 mmol/LBon SecSelect [facility], BeachwoodCreatinine [Mass/Vol]1.8 mg/dL High0.7 - 1.2 mg/dLBon Mountain Vista Medical Centerours Lima Memorial HospitalEst, Glom Filt Htkr63Ysg- PINFBon Mansfield HospitalComment on above: These results are not intended [...] therapy that affects renal tubular secretion. Glucose [Mass/Vol]103 mg/hOKncc96 - 99 mg/dLBon [facility] Interpretation and review of laboratory resultsAbnormalWellmont Health System Potassium [Moles/Vol]3.8 mmol/L3.7 - 5.3 mmol/LBon Mansfield HospitalSodium [Moles/Vol]144 mmol/L136 - 145 mmol/LBon Mansfield HospitalUrea nitrogen [Mass/Vol]22 mg/dL8 - 23 mg/dLBon [facility] Blood Occult Stool Screen #1on [id number], Stool #[id number] Mansfield HospitalHemoglobin.gastrointestinal spec 1 Ql (Stl)NegativeNEGATIVEBon Mansfield HospitalTime, Stool #[id number] [facility] CenterCBC with Auto Differentialon [id number] (Bld) [#/Vol]0.03 10*3/uLBon Mansfield HospitalBasophils/100 WBC (Bld)1 %0 - 2 %[facility] Eosinophils (Bld) [#/Vol]0.29 10*3/uLBon Mansfield HospitalEosinophils/100 WBC (Bld)4 %0 - 4 %[facility]mont Health SystemErythrocyte distribution width (RBC) [Ratio]20 %High11.5 - 14.9 %[facility] Health SystemHematocrit (Bld) [Volume fraction]38.7 %Low41.0 - 53.0 %[facility] Health SystemHemoglobin (Bld) [Mass/Vol]11.2 g/dLLow13.5 - 17.5 g/dLBon Mansfield HospitalImmature granulocytes (Bld) [#/Vol]Bon SecSelect [facility] Hospital, BeachwoodImmature granulocytes/100 WBC (Bld)0 %0Bon SecOchsner Medical Center HealthInterpretation and review of laboratory results AbnormalBon Secours Adena Health Systemy HealthLymphocytes/100 WBC (Bld)17 %Low24 - 44 %Bon [facility] Systemy HealthLymphocytes/100 WBC (Bld)1.13 %Bon SecKettering Health HamiltonH (RBC) [Entitic mass]24 pgLow26.0 - 34.0 pgBon SecKettering Health HamiltonHC (RBC) [Mass/Vol]28.9 g/dLLow31.0 - 37.0 g/dLBon SecKettering Health HamiltonV (RBC) [Entitic vol]83 fL80.0 - 100.[address] [facility] SecSelect Medical Cleveland Clinic Rehabilitation Hospital, BeachwoodMonocytes/100 WBC (Bld)15 %High 3 - 12 %Bon SecSelect [facility] Rehabilitation Hospital, BeachwoodMonocytes/100 WBC (Bld)0.98 %Bon SecSelect [facility] Rehabilitation Hospital, BeachwoodNeutrophils/100 WBC (Bld)63 %36 - 66 %[facility] Health SystemNucleated RBC/100 WBC (Bld) [Ratio]0 %0 per 100 WBCBon SecOchsner Medical Center HealthPlatelet mean volume (Bld) [Entitic vol]10.2 fL8.0 - 13.[address] [facility] SecOchsner Medical Center HealthPlatelets (Bld) [#/Vol]195 10*3/uLBon SecSelect Medical Cleveland Clinic Rehabilitation Hospital, BeachwoodRBC (Bld) [#/Vol]4.66 10*6/uL 4.21 - 5.77 m/uLBon Mansfield HospitalSegmented neutrophils/100 WBC (Bld)4.2 % Bon Mansfield HospitalWBC other (Bld) [#/Vol]6.7Bon SecMil[facility] [place][note 2]CBC with Diffon [id number]. Basophil0.03 k/uLNormal 0.00-0.20[facility] Park HospitalComment on above:Performed By: #### BMPX, CDP, PT #### [facility] [address] [place] [address] Safety Sitter: Fanelly, Milo, DOAbs.Imm.Granulocyte<0.24Utnzez3.00-0.30[facility] CenterComascension macomb on above:Performed By: #### MAGY JAMES, PT #### [facility] [address] [place] [address] Safety Sitter: Milo Engle DOAbs.Neutrophil (Seg)4.20 k/uLNormal1.50-8.10 [facility] CenterComascension macomb on above:Performed By: #### MAGY JAMES, PT #### [facility] [address] [place] [address] Safety Sitter: Milo Engle DOBasophils/100 WBC (Bld)1 %Normal0-2Mmarietta osteopathic clinicy [facility] HospitalComascension [place] on above:Performed By: #### MAGY JAMES, PT #### [facility] [address] [place] [address] Safety Sitter: Milo Engle DOEosinophils (Bld) [#/Vol]0.29 10*3/uLNormal 0.00-0.44[facility] CenterComascension [place] on above:Performed By: #### MAGY JAMES, PT #### [facility] [address] [place] [address] Safety Sitter: Milo Engle DOEosinophils/100 WBC (Bld)4 %Normal0-4[facility] CenterComascension [place] on above:Performed By: #### MAGY JAMES, PT #### [facility] [address] [place] [address] Safety Sitter: Milo Engle DOErythrocyte distribution width (RBC) [Ratio] 20.0 %High11.5-14.9[facility] CenterComascension [place] on above:Performed By: #### MAGY JAMES, PT #### [facility] [address] [place] [address] Safety Sitter: Milo Engle DOHematocrit (Bld) [Volume fraction]38.7 %Low 41.0-53.0[facility] on above:Performed By: #### BMPX CDP, PT #### [facility] [place] [address] Safety Sitter: Milo Engle DOHemoglobin (Bld) [Mass/Vol]11.2 g/dLLow 13.5-17.5[facility] CenterComascension [place] on above:Performed By: #### MAGY JAMES, PT #### [facility] [address] [place] [address] Safety Sitter: Milo Engle DOImmature granulocytes/100 WBC (Bld)0 %Normal0 [facility] CenterComascension [place] on above:Performed By: #### MAGY JAMES, PT #### [facility] [address] [place] [address] Safety Sitter: Milo Engle DOLymphocytes (Bld) [#/Vol]1.13 10*3/uLNormal 1.10-3.70[facility] CenterComascension [place] on above:Performed By: #### MAGY JAMES, PT #### [facility] [address] [place] [address] Safety Sitter: Milo Engle DOLymphocytes/100 WBC (Bld)17 %Vvw50-59NukvwCoshocton Regional Medical CenterComascension macomb on above:Performed By: #### EMILYX CDP, PT #### [facility] [address] [place] [address] Safety Sitter: Milo Engle DOMCH (RBC) [Entitic mass]24.0 pgLow26.0-34.0 [facility] CenterComascension [place] on above:Performed By: #### MAGY JAMES, PT #### [facility] [address] [facility] [place] [address] Safety Sitter: Milo Engle DOMCHC (RBC) [Mass/Vol]28.9 g/dLLow31.0-37.0 [facility] on above:Performed By: #### MAGY JAMES, PT #### [facility] [facility] [place] [address] Safety Sitter: Milo Engle DOMCV (RBC) [Entitic vol]83.0 fLNormal 80.0-100.0[facility] CenterComascension macomb on above:Performed By: #### MAGY JAMES, PT #### [facility] [facility] [place] [address] Safety Sitter: Milo Engle DOMonocytes (Bld) [#/Vol]0.98 10*3/uLNormal 0.10-1.20[facility] CenterComascension [place] on above:Performed By: #### MAGY JAMES, PT #### [facility] [facility] [place] [address] Safety Sitter: Milo Engle DOMonocytes/100 WBC (Bld)15 %High3-12[facility] CenterComascension [place] on above:Performed By: #### MAGY JAMES, PT #### [facility] [place] [address] Safety Sitter: Milo Engle DONeutrophil (Seg)63 %Oiufsm04-67OcoubCoshocton Regional Medical CenterComascension macomb on above:Performed By: #### MAGY JAMES, PT #### [facility] [place] [address] Safety Sitter: Milo Engle DONRBC Automated0.0 per 100 FCKGbguyq3TjzfxSouthwest General Health Center on above:Performed By: #### MAGY JAMES, PT #### [facility] [address] [facility] [place] [address] Safety Sitter: Milo Engle DOPlatelet mean volume (Bld) [Entitic vol]10.2 fLNormal8.0-13.5[facility] on above:Performed By: #### MAGY JAMES, PT #### [facility] [address] [place] [address] Safety Sitter: Milo Engle DOPlatelets (Bld) [#/Vol]195 10*3/uLNormal 150-450[facility] on above:Performed By: #### MAGY JAMES, PT #### [facility] [facility] [place] [address] Safety Sitter: Milo Engle DORBC (Bld) [#/Vol]4.66 10*6/uLNormal4.21-5.77 [facility] on above:Performed By: #### MAGY JAMES, PT #### [facility] [address] [place] [address] Safety Sitter: Milo Engle DOWBC (Bld) [#/Vol]6.7 10*3/uLNormal3.5-11.0 [facility] on above:Performed By: #### MAGY JAMES, PT #### [facility] [address] [place] [address] Safety Sitter: Milo Engle DOMycoplasma Ab, IgMon [id number] Ab, IgM0.11Normal<0.91[facility] on above:Result Comment: Reference Range: <=0.90 Negative 0.91-1.09 Equivocal >=1.10 PositivePerformed By: #### OBS #### [employer] [facility] [address] [place] [address] Safety Sitter: Milo Engle DOMycoplasma Ab,IgMon 10-04-2024M. pneumoniae IgM IA Ql (S)0.11NINF - 0.91Bon CardbackComment on above: Reference Range: <=0.90 Negative 0.91-1.09 Equivocal >=1.10 Positive Bon CardbackNo Panel InformationOrdered By: Alex Alcala on [id number] surface area Derived from formula2.04 m2Bon [facility] Work Phone: bon [facility] Work Phone: No Panel Informationon 16-24-6905Mj evidence of deep vein or superficial vein [...] saphenous, and small saphenous veins were imaged inthe transverse view and showed normal compressibility. The [...] saphenous, and small saphenous veins were imaged inthe transverse view and showed normal compressibility. The common femoral, popliteal, and middle femoral veins were imaged in the longitudinal view and showed normal color filling and normal phasic and spontaneous flow. Limited visualization of the left deep gastroc veins. Limited visualization of the left peroneal veins. Incidental finding: Dilation of the left popliteal artery noted measuring 2.588 cm by 2.547 cm witha residual lumen measuring 1.535 cm by 1.293 cm.Color flow seen in residual lumen. Plate Maker Zinc Details A pollard scale, color Doppler imaging and spectral Doppler analysis ultrasound was performed. During the study longitudinal and transverse views were obtained. Study was technically difficult due to: bedside exam, patient positioning and edema.[facility] CV CPACSRadiology Study observation (narrative)[facility]pe Haines [facility] HospitalOcc Bld, Fecal Scrnon [id number] Blood 1NegativeNormalNEGCoshocton Regional Medical CenterComascension [place] on above:Performed By: #### OBS #### [facility] [address] [facility] [place] [address] Safety Sitter: Milo Engle DOSpecimen 1 [id number] County Hospital on above:Performed By: #### OBS #### [facility] [address] [place] [address] Safety Sitter: Milo Engle DOSpecimen 1 [id number] Doctors HospitalComascension macomb on above:Performed By: #### OBS #### [facility] [address] [place] [address] Safety Sitter: Milo Engle DOPTon 76-03-3246IJX Coag (PPP) [Relative time] 1.7 {INR}[facility] on above:Result Comment: Therapeutic Range: Moderate Anticoagulant Intensity: INR = 2.0-3.0 High Anticoagulant Intensity: INR = 2.5-3.5Performed By: #### BMPX, CDP, PT #### [facility] [address] [place] [address] Safety Sitter: Milo Engle DOPT Coag (PPP) [Time]22.0 sHigh11.8-14.6[facility] on above:Performed By: #### BMPX, CDP, PT #### [facility] [address] [facility] [place] [address] Safety Sitter: Milo Engle DOProtime-INRon 27-38-5859HYB Coag (PPP) [Relative time]1.7 {INR}[facility] on above: Therapeutic Range: Moderate Anticoagulant Intensity: INR = 2.0-3.0 High Anticoagulant Intensity: INR = 2.5-3.5 Interpretation and review of laboratory resultsAbnoLifePoint Hospitals PT Coag (PPP) [Time]22.0 sHighBon [facility] B12/Folate Panelon 22-01-2064Ulijc Acid28.5 ng/mLHigh4.8-24.2[facility] HospitalComascension [facility] on above:Performed By: #### MAGY JAMES, PT #### [facility] [address] [place] [address] Safety Sitter: Milo Engle DOCobalamin (Vitamin B12) [Mass/Vol]377 pg/mL Cfbiry585-8314KrydkCoshocton Regional Medical CenterComascension macomb on above:Performed By: #### MAGY JAMES, PT #### [facility] [address] [place] [address] Safety Sitter: Milo Engle DOBasic Metab w/rfx MGon 35-77-3834Sosvr gap [Moles/Vol]8 mmol/LLow9-16[facility] on above:Performed By: #### MAGY JAMES, PT #### [facility] [address] [place] [address] Safety Sitter: Milo Engle DOCalcium [Mass/Vol]8.3 mg/dLLow8.6-10.4[facility] on above:Performed By: #### MAGY JAMES, PT #### [facility] [address] [place] [address] Safety Sitter: Milo Engle DOChloride [Moles/Vol]110 mmol/AHynd36-519Joakx [facility]enport HospitalComment on above:Performed By: #### BMPX, CDP, PT #### [facility] [address] [facility] [place] [address] Safety Sitter: Milo Engle DOCO2 [Moles/Vol]24 mmol/HOigvwv81-59IqqzeCoshocton Regional Medical CenterComascension macomb on above:Performed By: #### BMPX, CDP, PT #### [facility] [address] [facility] [place] [address] Safety Sitter: Milo Engle DOCreatinine [Mass/Vol]1.7 mg/dLHigh0.7-1.2 [facility] CenterComascension [facility] on above:Performed By: #### BMPX, CDP, PT #### [facility] [facility] [place] [address] Safety Sitter: Milo Engle DOGFR/1.73 sq M.predicted among non-blacks MDRD (S/P/Bld) [Vol rate/Area]40 mL/min/{1.73_m2}Low>60[facility] Comment on above:Result Comment: These results are not intended for [...] or following therapy that affects renal tubular secretion.Performed By: #### BMPX, CDP, PT #### [facility] [address] [facility] [place] [address] Safety Sitter: Milo Engle DOGlucose [Mass/Vol]98 mg/bWBdhepd74-16DyrorGood Samaritan HospitalComment on above:Performed By: #### BMPX, CDP, PT #### [facility] [address] [facility] [place] [address] Safety Sitter: Milo Engle DOPotassium [Moles/Vol]3.3 mmol/LLow3.7-5.3 [facility] CenterComascension [facility] on above:Performed By: #### MAGY JAMES, PT #### [facility] [address] [facility] [place] [address] Safety Sitter: Milo Engle DOSodium [Moles/Vol]142 mmol/LAlcdfl162-895 [facility] CenterComascension [facility] on above:Performed By: #### MAGY JAMES, PT #### [facility] [address] [facility] [place] [address] Safety Sitter: Milo Engle DOUrea nitrogen [Mass/Vol]24 mg/dLHigh8-23[facility] CenterComascension [facility] on above:Performed By: #### MAGY JAMES, PT #### [facility] [address] [facility] [place] [address] Safety Sitter: Milo Engle DOBasic Metabolic Panel w/ Reflex to MGon 49-90-2996Xxpmk gap [Moles/Vol]8 mmol/LLow9 - 16 mmol/LBon [facility] Hospital Calcium [Mass/Vol]8.3 mg/dLLow8.6 - 10.4 mg/dLBon Mansfield HospitalChloride [Moles/Vol]110 mmol/LHigh98 - 107 mmol/LBon Mansfield HospitalCO2 [Moles/Vol] 24 mmol/L20 - 31 mmol/LBon Mansfield HospitalCreatinine [Mass/Vol]1.7 mg/dL High0.7 - 1.2 mg/dLBon Mansfield HospitalEst, Glom Filt Cjbf16Agc- PINFBon Mansfield HospitalComascension macomb on above: These results are not intended [...] therapy that affects renal tubular secretion. Glucose [Mass/Vol]98 mg/dL74 - 99 mg/dLBon Mansfield HospitalInterpretation and review of laboratory resultsAbnormalWellmont Health SystemPotassium [Moles/Vol]3.3 mmol/LLow3.7 - 5.3 mmol/LBon Mansfield HospitalSodium [Moles/Vol]142 mmol/L136 - 145 mmol/LBon Mansfield HospitalUrea nitrogen [Mass/Vol]24 mg/dLHigh8 - 23 mg/dLBon [facility] CenterCBC with Auto Differentialon 59-87-4007Knbgmdvqz (Bld) [#/Vol]0.06 10*3/uL [facility] SystemBasophils/100 WBC (Bld)1 %0 - 2 %[facility] Health SystemEosinophils (Bld) [#/Vol]0.29 10*3/uLBon [facility]field Hospital Eosinophils/100 WBC (Bld)5 %High0 - 4 %[facility] Health SystemErythrocyte distribution width (RBC) [Ratio]20.2 %High11.5 - 14.9 %[facility] Hematocrit (Bld) [Volume fraction]33.1 %Low41.0 - 53.0 %[facility] Hemoglobin (Bld) [Mass/Vol]9.9 g/dLLow13.5 - 17.5 g/dLBon [facility]field Hospital Immature granulocytes (Bld) [#/Vol]0 10*3/uLBon Mansfield HospitalImmature granulocytes/100 WBC (Bld)0 %0[facility] Health SystemInterpretation and review of laboratory resultsAbnormalWellmont Health SystemLymphocytes/100 WBC (Bld)22 %Low24 - 44 %[facility] Health SystemLymphocytes/100 WBC (Bld)1.28 %[facility] CenterH (RBC) [Entitic mass]24.3 pgLow26.0 - 34.0 pgBon [facility] HospitalHC (RBC) [Mass/Vol]29.9 g/dLLow31.0 - 37.0 g/dLBon [facility]field Hospital MCV (RBC) [Entitic vol]81.3 fL80.0 - 100.0 fLWellmont Health System Monocytes/100 WBC (Bld)13 %High3 - 12 %[facility] SystemMonocytes/100 WBC (Bld)0.75 %[facility] Health SystemMorphology Ian (Bld) [Interp]ANISOCYTOSIS PRESENTBon Mansfield HospitalMorphology Ian (Bld) [Interp]1+ ECHINOCYTESBon Mansfield HospitalMorphology Ian (Bld) [Interp]1+ ELLIPTOCYTESWellmont Health SystemNeutrophils/100 WBC (Bld)59 %36 - 66 %[facility] Nucleated RBC/100 WBC (Bld) [Ratio]0 %0 per 100 WBCWellmont Health System Platelet mean volume (Bld) [Entitic vol]9.6 fL8.0 - 13.5 fLWellmont Health SystemPlatelets (Bld) [#/Vol]165 10*3/uLBon Mansfield HospitalRBC (Bld) [#/Vol]4.07 10*6/uLLow4.21 - 5.77 m/[facility] CenterSegmented neutrophils/100 WBC (Bld)3.42 %[facility] Health SystemWBC other (Bld) [#/Vol] 5.8Bon [facility] CenterCBC with Diffon 10-03-2024 Abs. Basophil0.06 k/uLNormal0.00-0.20[facility] CenterComascension [facility] on above: Performed By: #### MAGY JAMES, PT #### [facility] [address] [place] [address] Safety Sitter: Milo Engle, Abs.Imm.Granulocyte0.00 k/uLNormal0.00-0.30 [facility] CenterComascension [facility] on above:Performed By: #### MAGY JAMES, PT #### [facility] [address] [place] [address] Safety Sitter: Mlio Engle DOAbs.Neutrophil (Seg)3.42 k/uLNormal1.50-8.10 [facility] on above:Performed By: #### MAGY JAMES, PT #### [facility] [address] [place] [address] Safety Sitter: Milo Engle DOBasophils/100 WBC (Bld)1 %Normal0-2MercSelect Medical Specialty [facility] on above:Performed By: #### MAGY JAMES, PT #### [facility] [place] [address] Safety Sitter: Milo Engle DOEosinophils (Bld) [#/Vol]0.29 10*3/uLNormal 0.00-0.44[facility] on above:Performed By: #### MAGY JAMES, PT #### [facility] [facility] [address] [place] [address] Safety Sitter: Milo Engle DOEosinophils/100 WBC (Bld)5 %High0-4[facility] on above:Performed By: #### MAGY JAMES, PT #### [facility] [address] [place] [address] Safety Sitter: Milo Engle DOImmature granulocytes/100 WBC (Bld)0 %Normal0 [facility] on above:Performed By: #### MAGY JAMES, PT #### [facility] [address] [place] [address] Safety Sitter: Milo Engle DOLymphocytes (Bld) [#/Vol]1.28 10*3/uLNormal 1.10-3.70[facility] on above:Performed By: #### BMPX, CDP, PT #### [facility] [address] [place] [address] Safety Sitter: Milo Engle DOLymphocytes/100 WBC (Bld)22 %Ibr35-80OaazcSouthwest General Health Center on above:Performed By: #### EMILYX, CDP, PT #### [facility] [address] [place] [address] Safety Sitter: Milo Engle DOMonocytes (Bld) [#/Vol]0.75 10*3/uLNormal 0.10-1.20[facility] CenterComasc[facility] on above:Performed By: #### ERIKA, CDP, PT #### [facility] [place] [address] Safety Sitter: Milo Engle DOMonocytes/100 WBC (Bld)13 %High3-12[facility] CenterComasc[facility] on above:Performed By: #### MAGY JAMES, PT #### [facility] [place] [address] Safety Sitter: Milo Engle DOMorphology Ian (Bld) [Interp]ANISOCYTOSIS PRESENTNormalCoshocton Regional Medical CenterComascension [place] on above:Result Comment: 1+ ECHINOCYTES 1+ ELLIPTOCYTESPerformed By: #### ERIKA, CDP, PT #### [facility] [place] [address] Safety Sitter: Milo Engle DONeutrophil (Seg)59 %Owhtuq33-07QstpvCoshocton Regional Medical CenterComascension [place] on above:Performed By: #### EMILYX, CDP, PT #### [facility] [place] [address] Safety Sitter: Milo Engle DOErythrocyte distribution width (RBC) [Ratio] 20.2 %High11.5-14.9[facility] on above:Performed By: #### MAGY JAMES, PT #### [facility] [place] [address] Safety Sitter: Milo Engle DOHematocrit (Bld) [Volume fraction]33.1 %Low 41.0-53.0[facility] on above:Performed By: #### MAGY JAMES, PT #### [facility] [address] [place] [address] Safety Sitter: Milo Engle DOHemoglobin (Bld) [Mass/Vol]9.9 g/dLLow 13.5-17.5[facility] on above:Performed By: #### MAGY JAMES, PT #### [facility] [address] [place] [address] Safety Sitter: Milo Engle DOMCH (RBC) [Entitic mass]24.3 pgLow26.0-34.0 [facility] on above:Performed By: #### MAGY JAMES, PT #### [facility] [address] [place] [address] Safety Sitter: Milo Engle DOMCHC (RBC) [Mass/Vol]29.9 g/dLLow31.0-37.0 [facility] on above:Performed By: #### MAGY JAMES, PT #### [facility] [address] [place] [address] Safety Sitter: Milo Engle DOMCV (RBC) [Entitic vol]81.3 fLNormal 80.0-100.0[facility] on above:Performed By: #### MAGY JAMES, PT #### [facility] [address] [place] [address] Safety Sitter: Milo Engle DONRBC Automated0.0 per 100 IGZTxfgoj5LhepqSouthwest General Health Center on above:Performed By: #### MAGY JAMES, PT #### [facility] [address] [facility] [place] [address] Safety Sitter: Milo Engle DOPlatelet mean volume (Bld) [Entitic vol]9.6 fLNormal8.0-13.5[facility] on above:Performed By: #### MAGY JAEMS, PT #### [facility] [facility] [place] [address] Safety Sitter: Milo Engle DOPlatelets (Bld) [#/Vol]165 10*3/uLNormal 150-450[facility] on above:Performed By: #### MAGY JAMES, PT #### [facility] [address] [place] [address]. [place] [address] Safety Sitter: Milo Engle DORBC (Bld) [#/Vol]4.07 10*6/uLLow4.21-5.77 [facility] on above:Performed By: #### MAGY JAMES, PT #### [facility] [address] [place] [address]. [place] [address] Safety Sitter: Milo Engle DOWBC (Bld) [#/Vol]5.8 10*3/uLNormal3.5-11.0 [facility] on above:Performed By: #### MAGY JAMES, PT #### [facility] [address] [place] [address]. [place] [address] Safety Sitter: Milo Engle DOFerjoy 94-17-3372Ojpiajqc [Mass/Vol]54 ng/mLNormalBon Mansfield HospitalComascension macomb on above:No reference range established for this age/gender.Result Comment: No reference range established for this age/gender.Performed By: #### MAGY JAMES, PT #### [facility] [address] [place] [address] Safety Sitter: Milo Engle DOHaptoglobinon 56-45-3334Smrxeytgpss [Mass/Vol]244 mg/xMZxig64 - 200 mg/dLBon Mansfield HospitalHaptoglobin244 mg/sUUbwf97-735GogibSouthwest General Health Center on above:Performed By: #### MAGY JAMES, PT #### [facility] [address] [place] [address] Safety Sitter: Milo Engle Austin Binding Cap.on 81-36-9996Nhjj [Mass/Vol] 18 ug/dNHlj83-544Npi [facility] on above:Performed By: #### MAGY JAMES, PT #### [facility] [facility] [place] [address] Safety Sitter: Milo Engle DO% Fe Saturation8 %Dhr73-10QrjdiSouthwest General Health Center on above:Performed By: #### MAGY JAMES, PT #### [facility] [facility] [place] [address] Safety Sitter: Milo Engle DOTotal Fe Binding Rva878 ug/oSQyy595-994XgblfCoshocton Regional Medical CenterComascension [place]omb on above:Performed By: #### MAGY JAMES, PT #### [facility] [place] [address] Safety Sitter: Milo Engle DOUnbound Fe Bind Xuk930 ug/mLImmday728-872 [facility] on above:Performed By: #### MAGY JAMES, PT #### [facility] [facility] [place] [address] Safety Sitter: Milo Engle DOIron and TIBCon 26-25-0673Jskk binding capacity [Mass/Vol]235 ug/wQYyu164 - 450 ug/dLBon Mansfield HospitalIron saturation [Mass fraction]8 %Low20 - 55 %[facility] SystemUIBC217 ug/dL 112 - 347 ug/dLBon Mansfield HospitalLEGIONELLA ANTIGEN, URINEon 10-03-2024L. pneumophila 1 Ag IA.rapid Ql (U)NegativeNEGATIVEWellmont Health SystemComment on above:L. pneumophila serogroup 1 antigen not detected. A negative result does not exclude infection with Leginella pnemophila serogroup 1 nor does it rule out other microbial-caused respiratory infections of disease caused by other serogroups of Legionella pneumophila. [facility] Health SystemLactate Dehydrogenaseon 96-11-4645Lolsiszmjphseq and review of laboratory resultsAbnormalVirginia Hospital Center [Catalytic activity/Vol]132 U/ROtw648 - 225 U/LBon [facility] [Catalytic activity/Vol]132 U/UYbu182-850JleokCoshocton Regional Medical Center Comment on above:Performed By: #### BMPX, CDP, PT #### [facility] [address] [facility] [place] [address] Safety Sitter: Milo Engle DOLegionella Ag, Uron 74-79-6158Bxvdnylgno Ag, UrNegativeNormalNEGCoshocton Regional Medical CenterComment on above:Result Comment: L. pneumophila serogroup 1 antigen not detected. A negative result does not exclude infection with Leginella pnemophila serogroup 1 nor does it rule out other microbial-caused respiratory infections of disease caused by other serogroups of Legionella pneumophila.Performed By: #### OBS #### [facility] [address] [place], [place] [address] Safety Sitter: Milo Engle DOMRSA DNA Probe, Nasalon 80-34-8110Pulfqdwd Description.NASAL SWABStafford HospitalMRSA, DNA, Nasalon 83-64-5692KTEW, DNA, NasalNegativeNormalNEGWellmont Health System Comment on above:NEGATIVE: MRSA DNA not detected by nucleic acid amplification. Results should be used as an adjunct to nosocomial control efforts to identify patients needing enhanced precautions. The test is not intended to identify patients with staphylococcal infections. Results should not be used to guide or monitor treatment for MRSA infections. Result Comment: NEGATIVE: MRSA DNA not detected by nucleic acid amplification. Results should be used as an adjunct to nosocomial control efforts to identify patients needing enhanced precautions. The test is not intended to identify patients with staphylococcal infections. Results should not be used to guide or monitor treatment for MRSA infections. Performed By: #### OBS #### [facility] [address] [place] [address] Safety Sitter: Milo Engle DOMagnesiumon 58-27-1557Zhpfkhmyh [Mass/Vol]2.2 mg/dL1.6 - 2.4 mg/dLBon [facility] Dakota Medical CenterMagnesium [Mass/Vol]2.2 mg/dLNormal1.6-2.4MerGreene Memorial HospitalComment on above: Performed By: #### BMPX, CDP, PT #### [facility] [address] [place] [address] Safety Sitter: Milo Engle DONo Panel Informationmoe 10-03-2024 Interpretation and review of laboratory resultsAbEureka Community Health Services / [facility] [id number] Coag (PPP) [Relative time]1.7 {INR} NormalCoshocton Regional Medical CenterComment on above:Result Comment: Therapeutic Range: Moderate Anticoagulant Intensity: INR = 2.0-3.0 High Anticoagulant Intensity: INR = 2.5-3.5Performed By: #### BMPX, CDP, PT #### [facility] [address] [place] [address] Safety Sitter: Milo Engle DOPT Coag (PPP) [Time]22.0 sHigh11.8-14.6[facility] on above:Performed By: #### BMPX, CDP, PT #### [facility] [place] [address] Safety Sitter: Milo Engle DOProtime-INRon 66-76-4129JXS Coag (PPP) [Relative time]1.7 {INR}[facility] on above: Therapeutic Range: Moderate Anticoagulant Intensity: INR = 2.0-3.0 High Anticoagulant Intensity: INR = 2.5-3.5 Interpretation and review of laboratory resultsAbnoLifePoint Hospitals PT Coag (PPP) [Time]22.0 sHighBon [facility] Retic Counton 63-91-4641Bchnewao Retic0.038 M/uLNormal0.030-0.080[facility] on above:Performed By: #### BMPX, CDP, PT #### [facility] [address] [place] [address] Safety Sitter: Milo Engle DOIRF11.9 %Normal2.7-18.3MMercy Health [facility] on above:Performed By: #### BMPX, CDP, PT #### [facility] [address] [place] [address] Safety Sitter: Milo Engle DORetic Count0.9 %Normal0.5-2.5[facility] on above:Performed By: #### BMPX, CDP, PT #### [facility] [address] [place] [address] Safety Sitter: Milo Engle DORetic Vzyinfqpxe73.4 pgLow28.2-35.7[facility] on above:Performed By: #### BMPX, CDP, PT #### [facility] [address] [place] [address] Safety Sitter: Milo Engle DOReticulocyteson 23-31-9462Evtegadg reticulocytes/Total reticulocytes (Bld)11.9 %2.7 - 18.3 %[facility] Health SystemInterpretation and review of laboratory resultsAbSmyth County Community HospitalRetic Xaduojahkw17.4 pgLow28.2 - 35.7 pgWellmont Health System Reticulocytes (Bld) [#/Vol]0.038 10*3/uLWellmont Health System Reticulocytes/100 RBC (Bld)0.9 %0.5 - 2.5 %Stafford HospitalVitamin B12 & Folateon 80-19-3131Tpkokrktz (Vitamin B12) [Mass/Vol] 377 pg/mL232 - 1245 pg/mLWellmont Health SystemFolate [Mass/Vol]28.5 ng/mLHigh 4.8 - 24.2 ng/mLWellmont Health SystemInterpretation and review of laboratory resultsAbnormJohn Randolph Medical CenterBasic Metabolic Panelon 91-14-5904Unshs gap [Moles/Vol]11 mmol/L9 - 16 mmol/LBon Mansfield HospitalCalcium [Mass/Vol]8.8 mg/dL8.6 - 10.4 mg/dLBon [facility] Chloride [Moles/Vol]106 mmol/L98 - 107 mmol/LBon Mansfield HospitalCO2 [Moles/Vol]24 mmol/L20 - 31 mmol/LBon Mansfield HospitalCreatinine [Mass/Vol] 1.9 mg/dLHigh0.7 - 1.2 mg/dLBon Mansfield HospitalEst, Glom Filt Ajew55Qpw- PINFBon Mansfield HospitalComment on above: These results are not intended [...] therapy that affects renal tubular secretion. Glucose [Mass/Vol]105 mg/yWMmqb28 - 99 mg/dLBon [facility] Hospital Interpretation and review of laboratory resultsAbnormalBon [facility] Hospital Potassium [Moles/Vol]3.8 mmol/L3.7 - 5.3 mmol/LBon Mansfield HospitalSodium [Moles/Vol]141 mmol/L136 - 145 mmol/LBon Mansfield HospitalUrea nitrogen [Mass/Vol]22 mg/dL8 - 23 mg/dLBon Mansfield HospitalBasic Metabolic Profon 11-40-7453Lkwrk gap [Moles/Vol]11 mmol/LNormal9-16[facility] Comment on above:Performed By: #### MAGY, BMP, PT, TSHX #### [facility] [address] [place] [address] Safety Sitter: Milo Engle DOCalcium [Mass/Vol]8.8 mg/dLNormal8.6-10.4 [facility] CenterComment on above:Performed By: #### MAGY, EMILY, PT, TSHX #### [facility] [address] [place] [address] Safety Sitter: Milo Engle DOChloride [Moles/Vol]106 mmol/MCtoybb47-323 [facility] CenterComment on above:Performed By: #### EMILY BHATTI, PT, TSHX #### [facility] [address] [place] [address] Safety Sitter: Milo Engle DOCO2 [Moles/Vol]24 mmol/BBqsvpa00-54FrnqwCoshocton Regional Medical CenterComment on above:Performed By: #### MAGY, BMP, PT, TSHX #### [facility] [address] [place] [address] Safety Sitter: Milo Engle DOCreatinine [Mass/Vol]1.9 mg/dLHigh0.7-1.2 [facility] CenterComment on above:Performed By: #### CDP, BMP, PT, TSHX #### [facility] [address] [facility] [place] [address] Safety Sitter: Milo Engle DOGFR/1.73 sq M.predicted among non-blacks MDRD (S/P/Bld) [Vol rate/Area]35 mL/min/{1.73_m2}Low>60[facility] Comment on above:Result Comment: These results are not intended for [...] or following therapy that affects renal tubular secretion.Performed By: #### CDP, BMP, PT, TSHX #### [facility] [address] [place] [address]. [place] [address] Safety Sitter: Milo Engle DOGlucose [Mass/Vol]105 mg/gETbeu82-02KpcnsGood Samaritan HospitalComment on above:Performed By: #### MAGY, BMP, PT, TSHX #### [facility] [address] [place] [address] Safety Sitter: Milo Engle DOPotassium [Moles/Vol]3.8 mmol/LNormal3.7-5.3 [facility] CenterComascension [facility] on above:Performed By: #### CDP, BMP, PT, TSHX #### [facility] [address] [place] [address]. [place] [address] Safety Sitter: Milo Engle, DOSodium [Moles/Vol]141 mmol/ALgjlwh981-939 [facility] CenterComascension [place] on above:Performed By: #### CDP, BMP, PT, TSHX #### [facility] [address] [place] [address]. [place] [address] Safety Sitter: Milo Engle DOUrea nitrogen [Mass/Vol]22 mg/dLNormal8-23 [facility] CenterComment on above:Performed By: #### CDP, BMP, PT, TSHX #### [facility] [address] [place] [address] Safety Sitter: Milo Engle, DOCBC with Auto Differentialon 10-02-2024 Basophils (Bld) [#/Vol]0 10*3/uLBon Secours Adena Health Systemy [facility] HospitalBasophils/100 WBC (Bld)0 %0 - 2 %[facility] HospitalEosinophils (Bld) [#/Vol]0.07 10*3/uLBon Secours Lima Memorial HospitalEosinophils/100 WBC (Bld)1 %0 - 4 %[facility] Erythrocyte distribution width (RBC) [Ratio]20.6 %High11.5 - 14.9 %[facility] HospitalHematocrit (Bld) [Volume fraction]38.8 %Low41.0 - 53.0 %[facility] HospitalHemoglobin (Bld) [Mass/Vol]11 g/dLLow13.5 - 17.5 g/dLBon Secours [facility] HospitalImmature granulocytes (Bld) [#/Vol]0.07 10*3/uLBon [facility] MercStoneSprings Hospital CenterImmature granulocytes/100 WBC (Bld)1 %Gbqw3Mhd [facility] Interpretation and review of laboratory resultsAbnormalBon [facility] Lymphocytes/100 WBC (Bld)13 %Low24 - 44 %[facility] Systemy [facility] HospitalLymphocytes/100 WBC (Bld)0.95 %LowBon Secours [facility]Health Dublin Methodist HospitalH (RBC) [Entitic mass]24.3 pgLow 26.0 - 34.0 pgBon Secours [facility]Health Dublin Methodist HospitalHC (RBC) [Mass/Vol]28.4 g/dLLow31.0 - 37.0 g/dLBon Secours Adena Health Systemy Peoples HospitalV (RBC) [Entitic vol]85.7 fL80.0 - 100.0 fL [facility] HospitalMonocytes/100 WBC (Bld)14 %High3 - 12 %[facility] SystemMonocytes/100 WBC (Bld)1.02 %[facility] SystemMorphology Ian (Bld) [Interp]ANISOCYTOSIS PRESENTWellmont Health SystemMorphology Ian (Bld) [Interp]1+ ELLIPTOCYTESBon Mansfield HospitalMorphology Ian (Bld) [Interp]1+ ECHINOCYTESWellmont Health SystemNeutrophils/100 WBC (Bld)71 %High36 - 66 %[facility] SystemNucleated RBC/100 WBC (Bld) [Ratio]0 %0 per 100 WBCWellmont Health SystemPlatelet mean volume (Bld) [Entitic vol]10 fL8.0 - 13.5 fL [facility] SystemPlatelets (Bld) [#/Vol]245 10*3/uLWellmont Health SystemRBC (Bld) [#/Vol]4.53 10*6/uL4.21 - 5.77 m/[facility] Segmented neutrophils/100 WBC (Bld)5.19 %[facility] SystemWBC other (Bld) [#/Vol]7.3Bon [facility] Medical CenterCBC with Diffon 84-91-9028Qzr. Basophil0.00 k/uLNormal0.00-0.20[facility] CenterComment on above:Performed By: #### MAGY, EMILY, PT, TSHX #### [facility] [address] [place] [address] Safety Sitter: Milo Engle DOAbs.Imm.Granulocyte0.07 k/uLNormal0.00-0.30 [facility] CenterComascension [facility] on above:Performed By: #### MAGY, BMP, PT, TSHX #### [facility] [address] [place], [place] [id number] Safety Sitter: Milo Engle DOAbs.Neutrophil (Seg)5.19 k/uLNormal1.50-8.10 [facility] CenterComascension [facility] on above:Performed By: #### CDP, BMP, PT, TSHX #### [facility] [address] [place] [address] Safety Sitter: Milo Engle DOBasophils/100 WBC (Bld)0 %Normal0-2[facility] HospitalComascension [facility] on above:Performed By: #### CDP, BMP, PT, TSHX #### [facility] [address] [place] [address] Safety Sitter: Milo Engle DOEosinophils (Bld) [#/Vol]0.07 10*3/uLNormal 0.00-0.44[facility] on above:Performed By: #### CDP, BMP, PT, TSHX #### [facility] [address] [place] [address] Safety Sitter: Milo Engle DOEosinophils/100 WBC (Bld)1 %Normal0-4[facility] CenterComascension [facility] on above:Performed By: #### CDP, BMP, PT, TSHX #### [facility] [address] [place] [address] Safety Sitter: Milo Engle DOImmature granulocytes/100 WBC (Bld)1 %High0 [facility] CenterComascension [facility] on above:Performed By: #### CDP, BMP, PT, TSHX #### [facility] [address] [place] [address] Safety Sitter: Milo Engle DOLymphocytes (Bld) [#/Vol]0.95 10*3/uLLow 1.10-3.70[facility] on above:Performed By: #### CDP, BMP, PT, TSHX #### [facility] [address] [place] [address] Safety Sitter: Milo Engle DOLymphocytes/100 WBC (Bld)13 %Tvu87-78TpltgSouthwest General Health Center on above:Performed By: #### CDP, BMP, PT, TSHX #### [facility] [address] [place] [address] Safety Sitter: Milo Engle DOMonocytes (Bld) [#/Vol]1.02 10*3/uLNormal 0.10-1.20[facility] on above:Performed By: #### CDP, BMP, PT, TSHX #### [facility] [address] [place] [address] Safety Sitter: Milo Engle DOMonocytes/100 WBC (Bld)14 %High3-12[facility] on above:Performed By: #### CDP, BMP, PT, TSHX #### [facility] [address] [place] [address] Safety Sitter: Milo Engle DOMorphology Ian (Bld) [Interp]ANISOCYTOSIS PRESENTNormalSouthwest General Health Center on above:Result Comment: 1+ ELLIPTOCYTES 1+ ECHINOCYTESPerformed By: #### CDP, BMP, PT, TSHX #### [address] [address] Safety Sitter: Milo Engle DONeutrophil (Seg)71 %Drcz85-10VolwhSouthwest General Health Center on above:Performed By: #### CDP, BMP, PT, TSHX #### [facility] [address] [place] [address] Safety Sitter: Milo Engle DOErythrocyte distribution width (RBC) [Ratio] 20.6 %High11.5-14.9[facility] on above:Performed By: #### CDP, BMP, PT, TSHX #### [facility] [address] [facility] [place] [address] Safety Sitter: Milo Engle DOHematocrit (Bld) [Volume fraction]38.8 %Low 41.0-53.0[facility] on above:Performed By: #### CDP, BMP, PT, TSHX #### [facility] [facility] [place] [address] Safety Sitter: Milo Engle DOHemoglobin (Bld) [Mass/Vol]11.0 g/dLLow 13.5-17.5[facility] CenterComascension [facility] on above:Performed By: #### CDP, BMP, PT, TSHX #### [facility] [address] [place] [address]. [place] [address] Safety Sitter: Milo Engle DOMCH (RBC) [Entitic mass]24.3 pgLow26.0-34.0 [facility] on above:Performed By: #### CDP, BMP, PT, TSHX #### [facility] [address] [place] [address] Safety Sitter: Milo Engle DOMCHC (RBC) [Mass/Vol]28.4 g/dLLow31.0-37.0 [facility] CenterComascension [facility] on above:Performed By: #### CDP, BMP, PT, TSHX #### [facility] [address] [place] [address]. [place] [address] Safety Sitter: Milo Engle DOMCV (RBC) [Entitic vol]85.7 fLNormal 80.0-100.0[facility] on above:Performed By: #### CDP, BMP, PT, TSHX #### [facility] [address] [place] [address] Safety Sitter: Milo Engle DONRBC Automated0.0 per 100 KJGOtlxab2PsumwCoshocton Regional Medical CenterComascension [place]omb on above:Performed By: #### CDP, BMP, PT, TSHX #### [facility] [address] [place] [address] Safety Sitter: Milo Engle DOPlatelet mean volume (Bld) [Entitic vol]10.0 fLNormal8.0-13.5[facility] on above:Performed By: #### CDP, BMP, PT, TSHX #### [facility] [place] [address] Safety Sitter: Milo Engle DOPlatelets (Bld) [#/Vol]245 10*3/uLNormal 150-450[facility] CenterComascension [facility] on above:Performed By: #### CDP, BMP, PT, TSHX #### [facility] [address] [place] [address] Safety Sitter: Milo Engle DORBC (Bld) [#/Vol]4.53 10*6/uLNormal4.21-5.77 [facility] on above:Performed By: #### CDP, BMP, PT, TSHX #### [facility] [address] [place] [address]. [place] [address] Safety Sitter: Milo Engle DOWBC (Bld) [#/Vol]7.3 10*3/uLNormal3.5-11.0 [facility] on above:Performed By: #### CDP, BMP, PT, TSHX #### [facility] [address] [place] [address] Safety Sitter: Milo Engle DOMRSA, DNA, Nasalon 10-35-6054Gncizhgn Description.NASAL SWABNormOhioHealth Southeastern Medical CenterComascension [place] on above:Performed By: #### OBS #### [facility] [address] [facility] [place] [address] Safety Sitter: Milo Engle DONo Panel [facility] Centeron 26-80-3970Dbp [facility] 83-41-3994QHB Coag (PPP) [Relative time]1.9 {INR}NormalMercy Promedica Bay Park HospitalComascension macomb on above:Result Comment: Therapeutic Range: Moderate Anticoagulant Intensity: INR = 2.0-3.0 High Anticoagulant Intensity: INR = 2.5-3.5Performed By: #### CDP, BMP, PT, TSHX #### [facility] [address] [place] [address]. [place] [address] Safety Sitter: Milo Engle DOPT Coag (PPP) [Time]23.2 sHigh11.8-14.6Mer[facility] Park HospitalComascension [place] on above:Performed By: #### CDP, BMP, PT, TSHX #### [facility] [address] [place] [address] Safety Sitter: Milo Engle DOProcalcitoninon 56-87-3952Svtidrtekxmpa [Mass/Vol]0.08 ng/mL0.00 - 0.09 ng/mLBon Mansfield HospitalComascension macomb on above: Suspected Sepsis: <0.50 ng/mL Low [...] entered into the Change in Procalcitonin Calculator (www.vozcdu-unr-ppyhlvvohf.com) to determine the patient's Mortality Risk Prognosis In healthy neonates, plasma Procalcitonin (PCT) concentrations increase gradually after , reaching peak values at about 24 hours of age then decrease to normal values below 0.5 ng/mL by 48-72 hours of age. [facility] Health SystemProcalcitonin0.08 ng/mLNormal0.00-0.09Coshocton Regional Medical CenterComment on above:Result Comment: Suspected Sepsis: <0.50 ng/mL Low likelihood [...] entered into the Change in Procalcitonin Calculator (www.mnbsdm-vwj-oyehtnnhuz.[employer]) to determine the patient's Mortality Risk Prognosis In healthy neonates, plasma Procalcitonin (PCT) concentrations increase gradually after , reaching peak values at about 24 hours of age then decrease to normal values below 0.5 ng/mL by 48-72 hours of age.Performed By: #### MYCM #### [facility] [address] [place], [place] [id number] Safety Sitter: Loi Oliver MD #### PRCAL #### [facility] [address] [place], [place] [id number] Safety Sitter: Milo Engle DOProtime-INRon 53-13-7724UIM Coag (PPP) [Relative time]1.9 {INR}[facility] Health SystemComment on above: Therapeutic Range: Moderate Anticoagulant Intensity: INR = 2.0-3.0 High Anticoagulant Intensity: INR = 2.5-3.5 Interpretation and review of laboratory resultsAbnormalWellmont Health System PT Coag (PPP) [Time]23.2 sHighBon [facility] HospitalBon [facility] Resp Viral Panelon 54-42-7993VunrsruyvbUgs detectedNormalNOTDETMGood Samaritan HospitalComascension mac[place] on above:Performed By: #### RVP #### [facility] [address] [place] [address] Safety Sitter: Milo Engle [address] [address] Safety Sitter: Christophe Correia.parapertussisNot detectedNormalNOTDET [facility] CenterComascension [place] on above:Performed By: #### RVP #### [facility] [address] [place] [address] Safety Sitter: Milo Engle [address] [address] Safety Sitter: Carl Correia pertussisNot detectedNormalNOTDET [facility] CenterComascension [place] on above:Performed By: #### RVP #### [facility] [address] [place] [address] Safety Sitter: Milo Engle [address] [address] Safety Sitter: Nasrin Correia.pneumoniaeNot detectedNormalNOTDETMGood Samaritan HospitalComascension [place] on above:Performed By: #### RVP #### [facility] [address] [place] [address] Safety Sitter: Milo Engle [address] [address] Safety Sitter: RAJNI Correiaoronavirus 229ENot detectedNormalNOTDESelect Medical Specialty Hospital - YoungstownComascension [place] on above:Performed By: #### RVP #### [facility] [address] [place] [address] Safety Sitter: Milo Engle [facility]W [facility] [address] [place] [address] Safety Sitter: Marge Correiaavirus [id number] detectedNormalNOTBarnesville Hospital on above:Performed By: #### RVP #### [facility] [address] [place] [address] Safety Sitter: Milo Engle BEW Global[address] [address] Safety Sitter: Marge Correiaavirus [id number] detectedNormalNOTBarnesville Hospital on above:Performed By: #### RVP #### [facility] [address] [place] [address] Safety Sitter: Milo Engle NavigatorMD [address] [address] Safety Sitter: Marge Correiaavirus [id number] detectedNormalNOTBarnesville Hospital on above:Performed By: #### RVP #### [facility] [address] [place] [address] Safety Sitter: Milo Engle NavigatorMD [address] [address] Safety Sitter: Yoselin Correia MetapneumoDetectedAbnormalNOTBarnesville Hospital on above:Performed By: #### RVP #### [facility] [address] [place] [address] Safety Sitter: Milo Engle DO NavigatorMD [address] [place] [address] Safety Sitter: Ronni Correia ANot detectedNormalNOTBarnesville Hospital on above:Performed By: #### RVP #### [facility] [address] [place] [address] Safety Sitter: Milo Engle DO BEW [employer] [address] Safety Sitter: Ronni Correia BNot detectedNormalNOTKettering Health DaytonComascension macomb on above:Performed By: #### RVP #### [facility] [address] [place] [address] Safety Sitter: Milo nEgle Thounds [address] [place] [address] Safety Sitter: Yaritza Correia.pneumoniaeNot detectedNormalNOTBarnesville Hospital on above:Result Comment: Performed by multiplexed nucleic acid assay.Performed By: #### RVP #### [facility] [address] [place] [address] Safety Sitter: Milo Engle Thounds [address] [place] [address] Safety Sitter: Geo Correia 1Not detectedNormalNOTBarnesville Hospital on above:Performed By: #### RVP #### [facility] [address] [place] [address] Safety Sitter: Milo Engle NavigatorMD [address] [address] Safety Sitter: Geo Correia 2Not detectedNormalNOTBarnesville Hospital on above:Performed By: #### RVP #### [facility] [address] [place] [address] Safety Sitter: Fanelly, Milo[address] [address] Safety Sitter: Geovany Correianza 3Not detectedNormLima Memorial Hospital on above:Performed By: #### RVP #### [facility] [address] [place] [address] Safety Sitter: Milo Engle [address] [address] Safety Sitter: Geovany Correianza 4Not detectedNoFayette County Memorial Hospital on above:Performed By: #### RVP #### [facility] [address] [place] [address] Safety Sitter: Milo Engle [address] [address] Safety Sitter: JUDITH Correiaesp Syncytial VirusNot detectedNormalUNC HEALTH ROCKINGHAMT [facility] CenterComascension [place] on above:Performed By: #### RVP #### [facility] [address] [place] [address] Safety Sitter: Milo Engle [address] [address] Safety Sitter: JUDITH Correiahino/EnterovirusNot detectedNormPremier Health Miami Valley HospitalComascension [place] on above:Performed By: #### RVP #### [facility] [address] [place] [address] Safety Sitter: Milo Engle [address] [address] Safety Sitter: MATHIEU Correia-CoV-2 (COVID-19) RNA KARI+probe Ql (Unsp spec)Not detectedNoTwin City HospitalComascension [place] on above: Performed By: #### RVP #### [facility] [address] [facility] [place] [address] Safety Sitter: Milo Engle Thounds [address] [place] [address] Safety Sitter: Mary Correia:.NASOPHARYNGEAL SWABNormalMercy Promedica Bay Park HospitalComment on above:Performed By: #### RVP #### [facility] [address] [place] [address] Safety Sitter: Milo Engle BEW [employer] [address] [place] [address] Safety Sitter: Elisa Correia Panel, Molecular, with COVID-19 (Restricted: peds pts or suitable admitted adults)on 38-95-2053Noqhjxcdni DNA KARI+non-probe Ql (Nph)Not detectedNot DetectedBon Secours Lima Memorial HospitalB. parapertussis [id number] DNA KARI+non-probe Ql (Nph)Not detectedNot DetectedBon Secours [facility] Preble HealthB. pertussis DNA KARI+probe Ql (Unsp spec)Not detectedNot DetectedBon Secours [facility] Preble HealthC. pneumoniae DNA KARI+non-probe Ql (Nph)Not detectedNot DetectedBon Secours Adena Health Systemy HealthFLUAV RNA KARI+non-probe Ql (Nph)Not detectedNot DetectedBon Secours Adena Health Systemy HealthFLUBV RNA KARI+non-probe Ql (Nph)Not detectedNot DetectedBon Secours Mercy HealthHCoV 229E RNA KARI+non-probe Ql (Nph) Not detectedNot DetectedBon Secours Mercy HealthHCoV HKU1 RNA KARI+non-probe Ql (Nph)Not detectedNot DetectedBon Secours Adena Health Systemy HealthHCoV NL63 RNA KARI+non-probe Ql (Nph)Not detectedNot DetectedBon Secours Mercy HealthHCoV OC43 RNA KARI+non- probe Ql (Nph)Not detectedNot DetectedBon Secours [facility] Health Systemy HealthhMPV RNA KARI+non- probe Ql (Nph)DetectedAbnormalNot DetectedBon Secours [facility] Preble HealthInterpretation and review of laboratory resultsAbnormalBon Secours Adena Health Systemy HealthM. pneumoniae DNA KARI+non-probe Ql (Nph)Not detectedNot DetectedBon [facility] Comment on above:Performed by multiplexed nucleic acid assay.Parainfluenza virus 1 RNA KARI+non-probe Ql (Nph)Not detectedNot DetectedBon [facility] Parainfluenza virus 2 RNA KARI+non-probe Ql (Nph)Not detectedNot DetectedBon Mansfield HospitalParainfluenza virus 3 RNA KARI+non-probe Ql (Nph)Not detected Not DetectedBon Mansfield HospitalParainfluenza virus 4 RNA KARI+non-probe Ql (Nph)Not detectedNot DetectedBon [facility]field HospitalRhinovirus+Enterovirus RNA KARI+non-probe Ql (Nph)Not detectedNot DetectedBon Mansfield HospitalRSV RNA KARI+non-probe Ql (Nph)Not detectedNot DetectedBon [facility]-CoV-2 (COVID-19) RNA KARI+non-probe Ql (Nph)Not detectedNot DetectedBon [facility]field HospitalSpecimen Description.NASOPHARYNGEAL SWABBon [facility] HospitalBon [facility] reflex to [id number] Qn1.29 m[IU]/LBon [facility] w/reflex to FT26-45-3766Ppocfin Stim. Horm.1.29 uIU/mLNormal 0.27-4.20Cosho[facility] Regional Medical CenterComment on above:Performed By: #### CDP, BMP, PT, TSHX #### [facility] [address] [place] [address] Safety Sitter: Milo Engle DOUrinalysis w/ Microon 81-57-2347OvxjbytlVPG AbnormalNONEMercSelect Medical Specialty Hospital - Cincinnati NorthComment on above:Performed By: #### OBS #### [facility] [address] [place] [address] Safety Sitter: Milo Engle DOBilirubin, SemiQt,UrNegativeNormalNEGCoshocton Regional Medical CenterComment on above:Performed By: #### OBS #### [facility] [address] [place] [address] Safety Sitter: Milo Engle DOBlood UrineTRACEAbnormalNEGMercy Promedica Bay Park HospitalComascension macomb on above:Performed By: #### OBS #### [facility] [address] [facility] [place] [address] Safety Sitter: Milo Engle DOCasts6 TO 9AbnormalNONEMercy Promedica Bay Park HospitalComascension macomb on above:Performed By: #### OBS #### [facility] [address] [place] [address]. [place] [address] Safety Sitter: Milo Engle DOClarity (U)ClearNormalCLEARMerGreene Memorial HospitalComascension macomb on above:Performed By: #### OBS #### [facility] [address] [place] [address] Safety Sitter: Milo Engle DOColor (U)YellowNormalYELMercy Promedica Bay Park HospitalComascension [place] on above:Performed By: #### OBS #### [facility] [address] [place] [address]. [place] [address] Safety Sitter: Milo Engle DOEpithelial cells LM Ql (Urine sed)0 TO 2 NormalMerGreene Memorial HospitalComascension macomb on above:Performed By: #### OBS #### [facility] [address] [place] [address]. [place] [address] Safety Sitter: Milo Engle DOGlucose Ql (U)NegativeNormalNEGMercy Promedica Bay Park HospitalComascension [place] on above:Performed By: #### OBS #### [facility] [address] [place] [address]. [place] [address] Safety Sitter: Milo Engle DOKetones Ql (U)NegativeNormalNEGMercy Promedica Bay Park HospitalComascension macomb on above:Performed By: #### OBS #### [facility] [address] [place] [address] Safety Sitter: Milo Engle DOLeukocyte esterase Test strip Ql (U)MOD AbnormalNEGCoshocton Regional Medical CenterComascension [place]omb on above:Performed By: #### OBS #### [facility] [address] [place] [address] Safety Sitter: Milo Engle DONitrite,UrPositiveAbnormalNEGCoshocton Regional Medical CenterComascension [place]omb on above:Performed By: #### OBS #### [facility] [address] [place] [address] Safety Sitter: Milo Engle DOPH,Ur6.0Lvmkcl6.0-8.0[facility] Medical CenterComascension [place]omb on above:Performed By: #### OBS #### [place] [address] Safety Sitter: Milo Engle DOProtein Ql (U)1+ mg/dLAbnormalNEGCoshocton Regional Medical CenterComascension [place] on above:Performed By: #### OBS #### [facility] [address] [place] [address] Safety Sitter: Milo Engle DOSpec. [place],Ur1.294Fxvgvm5.000-1.030[facility] Medical CenterComascension [place] on above:Performed By: #### OBS #### [facility] [address] [place] [address] Safety Sitter: Milo Engle DOUrine RBC's6 TO 0PayisvjyO84LskhhCoshocton Regional Medical CenterComascension macomb on above:Performed By: #### OBS #### [facility] [address] [place] [address] Safety Sitter: Milo Engle DOUrine WBC's51 TO 433ChramrkoR69KjmbwCoshocton Regional Medical CenterComascension macomb on above:Performed By: #### OBS #### [facility] [address] [facility] [place] [address] Safety Sitter: Milo Engle DOUroalen,UrNormalNormal0.0-1.0Coshocton Regional Medical CenterComment on above:Performed By: #### OBS #### [facility] [address] [facility] [place] [address] Safety Sitter: Milo Engle, Urinalysis with Microscopicon 10-02-2024 Bacteria LM Ql (Urine sed)FEWAbnormalNoneBon Secours Mercy HealthBilirubin Ql (U)NegativeNEGATIVEBon Secours BEW Globaly HealthCasts LM.LPF (Urine sed) [#/Area]6 TO 9AbnormalNone /LPFBon Secours Mercy HealthClarity (U)ClearClearBon Secours Mercy HealthColor (U)YellowYellowBon Secours Mercy HealthEpithelial cells LM.HPF (Urine sed) [#/Area]0 TO 2/HPFBon Secours Mercy HealthGlucose Test strip (U) [Mass/Vol]NegativeNEGATIVE mg/dLBon Secours Mercy HealthHemoglobin Auto test strip Ql (U)TRACEAbnormalNEGATIVEBon Secours Mercy HealthInterpretation and review of laboratory resultsAbnormalBon Secours Mercy HealthKetones (U) [Mass/Vol]NegativeNEGATIVE mg/dLBon Secours Mercy HealthLeukocyte esterase Test strip Ql (U)MODAbnormalNEGATIVEBon Secours Mercy HealthNitrite Ql (U)Positive AbnormalNEGATIVEBon Secours Mercy HealthpH (U)6 [pH]5.0 - 8.0Bon [facility]cy HealthProtein (U) [Mass/Vol]1+AbnormalNEGATIVE mg/dLBon Secours Mercy HealthRBC LM.HPF (Urine sed) [#/Area]6 TO 2Tjsaupnm1 TO 2 /HPFBon Secours [facility]cy Health Specific gravity (U) [Rel density]1.0171.000 - 1.030Bon [facility] BEW [facility] Urobilinogen Qn (U)Normal0.0 - 1.0 EU/dLBon Secours Mercy HealthWBC LM.HPF (Urine sed) [#/Area]51 TO 825Zcajlcdt2 TO 5 /HPFBon [facility] Cultureon 07-70-3471Aqkxknls identified Cx Nom (U) ORGANISM: Klebsiella oxytoca (O:KLEOXY) [place] Count >100,000 ORGANISM: Enterobacter cloacae complex (O:ENTCLOCPLX) [place] Count >100,000 Aerobic RITESH Charge (NMIC56) SUSCEPTIBILITY [...] <4 Tigecycline S <2 Tobramycin S <2 Trimethoprim/Sulfamethoxazole S <0.5 Aerobic RITESH Charge (NMIC56) SUSCEPTIBILITY ORGANISM: O:ENTCLOCPLX ANTIBIOTIC INTERPRETATION RITESH Amikacin S <16 Aztreonam R 16 Cefepime S <2 Ceftazidime R >16 Ceftriaxone R >32 Cefuroxime R >16 Ciprofloxacin S <0.25 Ertapenem S <0.5 Gentamicin S <2 Levofloxacin S <0.5 Meropenem S <1 Meropenem/Vaborbactam S <2 Nitrofurantoin I 64 Piperacillin/Tazobactam IB 16 Tetracycline S <4 Tigecycline S <2 Tobramycin S <2 Trimethoprim/Sulfamethoxazole S <0.5 S = SUSCEPTIBLE I = [...] RESISTANT TO ALL B-LACTAM DRUGS. PERFORMED BY: [place] [address] PATHOLOGIST PROCUREMENT ASSISTANT ED CRUZ M.D.NormalThe Atrium Health Cabarrus Physician GroupComment on above: Performed By: #### BLAKE, CUU #### [place] [address] USAUrine cultureOrdered By: Robe Hansen on 53-10-0741Gbshodpj identified Cx Nom (U)AbnormalMercy Health Springfield Regional Medical CenterBacteria identified Cx Nom (U)AbnormalMercy Health Springfield Regional Medical CenterUS aortaon 29-58-2278YT aortaKettering Health Main Campus [facility] [address] [place] [address] Ultrasound Report Signed Patient: Alex Anderson MR#: [id number] [birth year] : 1945 Acct:[id number] Age/Sex: 78 / M ADM Date: 09/23/24 Loc: [facility] Room: Type: [facility] Attending Dr: Margarito Valentine MD Ordering Provider: [...] ANEURYSM SAC. Impression dictated by: Margarito Valentine MD,IVETT,[facility] 09/30/2024 8:31 AM Dictation Location: RADDOC Tech: Juani Steward Transcribed By: LIONEL 09/30/24830 Dictated By: Margarito Valentine MD 09/30/24829 Signed By: 09/30/24830[facility]lmsted Medical CenterUS arterial duplex LE BIon 24-39-0712ON arterial duplex LE [facility] [address] [place] [address] Ultrasound Report Signed Patient: Alex Anderson MR#: [id number] [birth year] : 1945 Acct:[id number] Age/Sex: 78 / M ADM Date: 09/23/24 Loc: [facility] ER Room: Type: [facility] Attending Dr: Margarito Valentine MD Ordering Provider: [...] artery aneurysm. Impression dictated by: Margarito Valentine MD,IVETT,FSVS 09/30/2024 8:30 AM Dictation Location: RADDOC- Tech: Juani Steward Transcribed By: LIONEL 09/30/24829 Dictated By: Margarito Valentine MD 09/30/24828 Signed By: 09/30/24829Olmsted Medical CenterUrine Cultureon 09-28-2024 Bacteria identified Cx Nom (U)ORGANISM: Enterobacter cloacae complex (O:ENTCLOCPLX) [place] Count >100,000 ORGANISM: Enterobacter cloacae complex (O:ENTCLOCPLX) [place] Count >100,000 Aerobic RITESH Charge (NMIC56) SUSCEPTIBILITY ORGANISM: O:ENTCLOCPLX ANTIBIOTIC INTERPRETATION RITESH Amikacin S <16 Aztreonam R 16 Cefepime S <2 Ceftazidime R 16 Ceftriaxone R >32 Cefuroxime R >16 Ciprofloxacin S <0.25 Ertapenem S <0.5 Gentamicin S <2 Levofloxacin S <0.5 Meropenem S <1 Meropenem/Vaborbactam S <2 Nitrofurantoin I 64 Piperacillin/Tazobactam I 32 Tetracycline S <4 Tigecycline S <2 Tobramycin S <2 Trimethoprim/Sulfamethoxazole S <0.5 Aerobic RITESH Charge (NMIC56) SUSCEPTIBILITY ORGANISM: O:ENTCLOCPLX ANTIBIOTIC INTERPRETATION RITESH Amikacin S <16 Aztreonam R >16 Cefepime S <2 Ceftazidime R >16 Ceftriaxone R 32 Cefuroxime R >16 Ciprofloxacin S <0.25 Ertapenem S <0.5 Gentamicin S <2 Levofloxacin S <0.5 Meropenem S <1 Meropenem/Vaborbactam S <2 Nitrofurantoin I 64 Piperacillin/Tazobactam I 32 Tetracycline R >8 Tigecycline S <2 Tobramycin S <2 Trimethoprim/Sulfamethoxazole S <0.5 S = SUSCEPTIBLE I = [...] RESISTANT TO ALL B-LACTAM DRUGS. PERFORMED BY: [place] [address] [address] [place] [address] PATHOLOGIST PROCUREMENT ASSISTANT ED CRUZ M.D.NormalThe Atrium Health Cabarrus Physician GroupComment on above: Performed By: #### JHONNY LOZANO #### [facility] [address] [place] [address] USAUrine cultureOrdered By: Talya Bo on 53-76-0029Ccrwwpjz identified Cx Nom (U)AbnormalMercy Health Springfield Regional Medical CenterUrinalysis macro (dipstick) panel (U)on 17-62-4884Rnhhjwlyi, UANegativeNegative - 4(70) +++ mg/dL N[facility] HealthcareBlood, UANegativeNegative - 50 Fletcher/mcLNOMS HealthcareClarity, UA ClearNOMS HealthcareColor, UAYellowNOMS HealthcareGlucose, UANegativeNegative - 2000(110) ++++ mg/dLNOMS HealthcareInterpretation and review of laboratory resultsAbnormalNOMS HealthcareKetones, UAPositiveNegative - 160(16) ++++ mg/dL [facility] HealthcareLeukocytes, UANegativeNegative - 500+++ Ed/mcLNOMS Healthcare Nitrite, UANegativeNegative - PositiveNOMS HealthcarepH, UA65 - 9[facility] Protein, UAPositiveNegative - 2000(20) ++++ mg/dLNOMS HealthcareSpec Grav, UA 1.0251 - 1.03NOMS HealthcareUrobilinogen, UA0.20.2 - 12 mg/dLNOMS HealthcareNOMS HealthcareECG 12 Leadon 42-42-2950UBG revealed normal sinus rhythm, right axis deviation, IVCD, septal myocardial infarction of undetermined age, diffuse repolarization abnormalities, abnormal ECGCPACSUC [facility] Work Phone: ambulatory Visit Summaryon 19-24-6894Hbglpdqqet Visit SummaryAmbulatory Visit Summary ALEX ANDERSON :1945 Visit Date:09/09/2024 [...] CASILLAS, Katia Hall Where: [facility] [address] [place] [address]- Medications What How Much When Instructions Unchanged [...] elemental iron) 45 mg oral tablet, extended release)1 Tablets By Mouth Every day Unchanged furosemide [...] with urinary obstruction COPD with emphysema Dementia Zapien catheter problem Foreign body in bladder Gross [...] you for choosing us for your care. [facility], Edwin ShawITPon 27-18-0071[place] [address] Cardiac Rehab Report Signed Patient: ALEX ANDERSON MR#: [id number] : 1945 Acct:[id number] Age/Sex: 78 / M ADM Date: 08/23/24 Loc: CR Attending Dr: TEO AL Ordering Physician: Martita Garnica D.O. Date of Service: 08/23/24 Procedure(s): ITP Accession Number(s): [id number] cc: [facility] Test Date: 2024-08-23 Pat Name: ALEX ANDERSON Department: Room: - Gender: Male Mercury Purifier: : 1945 Requested By: MARTITA GARNICA Order Number: [id number] Reading MD: MARTITA GARNICA Interpretive Statements Session Date: Electronically Signed On 09-05-2024 19:58:42 EDT by MARTITA GARNICA Dictated By: Martita Garnica D.O. Signed By: 09/05/24195809/05/241958 DD/ 40 TD/TT: Mobile Equipment Mechanic:ALEMadiologbere, Radiologist, - 09/05/2024 [place] [address] Cardiac Rehab Report Signed Patient: ALEX ANDERSON MR#: [id number] : 1945 Acct:[id number] Age/Sex: 78 / M ADM Date: 08/23/24 Loc: CR Attending Dr: TEO AL Ordering Physician: Martita Garnica D.O. Date of Service: 08/23/24 Procedure(s): ITP Accession Number(s): [id number] cc: [facility] Test Date: 2024-08-23 Pat Name: ALEX ANDERSON Department: Room: - Gender: Male Mercury Purifier: : 1945 Requested By: MARTITA GARNICA Order Number: [id number] Reading MD: MARTITA GARNICA Interpretive Statements Session Date: Electronically Signed On 09-05-2024 19:58:42 EDT by MARTITA GARNICA Dictated By: Martita Garnica D.O. Signed By: 09/05/24195809/05/241958 DD/ 40 TD/TT: Mobile Equipment Mechanic: MARSHAL MadisonITPOrdered By: Radiologist Radiology on 95-55-1561[facility] Work Phone: aLL LIPID PROFILE (FASTING)on 70-56-1674OTKN HDL RATIO 2NOMS HealthcareComment on above:3.3 - 4.4 LOW RISK 4.4 - 7.1 AVERAGE RISK 7.1 - 11.0 MODERATE RISK >11.0 HIGH RISK Cholesterol [Mass/Vol]86 mg/dLNINF - 200 mg/dLNORI HealthcareCholesterol in HDL [Mass/Vol]43 mg/dL40 - 60 mg/dLNORI HealthcareComment on above:> or =60 mg/dl - LOW CARDIOVASCULAR RISK <40 mg/dl - HIGH CARDIOVASCULAR RISK Magnesium [Mass/Vol]26.8 mg/dLNORI HealthcareComment on above:<100 mg/dl OPTIMAL 100-129 mg/dl NEAR OR ABOVE OPTIMAL 130-159 mg/dl BORDERLINE HIGH 160-189 mg/dl HIGH >190 mg/dl VERY HIGH Magnesium [Mass/Vol]16.2 mg/dLNORI HealthcareTriglyceride [Mass/Vol]81 mg/dLNINF - 150 mg/dLNORI HealthcareALL THYROID STIM HORMONEon 01-57-1607QSI Qn0.537 m[IU]/LNOMS HealthcareNo Panel Informationon 58-73-2642HTREBMHSEGDNJ Healthcare ITPon 79-27-4762Dleyezdty Study observation (narrative)NOMS HealthcareAmbulatory Visit Summaryon 06-16-2716Womnsapymo Visit SummaryAmbulatory Visit Summary ALEX ANDERSON :1945 Visit Date:08/12/2024 [...] With: Fabi Antonio Where: [facility] [address] [facility] [place] [address] [place] [address]- Friday 2:00 PM EDT With: Katia SAMUELS MD Where: [facility] [address] [address]- Medications What How Much When Instructions Unchanged [...] elemental iron) 45 mg oral tablet, extended release)1 Tablets By Mouth Every day Unchanged furosemide [...] with urinary obstruction COPD with emphysema Dementia Zapien catheter problem Foreign body in bladder Gross [...] you for choosing us for your care. [facility] ShawTRANSTHORACIC ECHO (TTE) LIMITED on 38-26-8074KDBPWYSIBECWJ ECHO (TTE) LIMITED[address], Suite [facility], [place] [address] TRANSTHORACIC ECHOCARDIOGRAM REPORT Patient Name: ALEX Sawyer Physician: [id number] Ana Castro MD Study Date: 08/06/2024 Ordering Provider: [id number] CURRAN Andrea QUILESAL MRN/PID: [id number] Fellow: Nurse: Date of /Age: 7 1945 / 78 years Seating And Mobility Technologist: Marlyn Castro RDCS, RT(R), RDMS, RVT Gender Assigned at M Additional Staff: : Height: 187.96 cm Admit Date: Weight: 92.53 kg Admission Status: Outpatient BSA / BMI: 2.19 m2 / 26.19 Department Location: [facility] Heart kg/m2 [place] Blood Pressure: 98 /64 mmHg Study Type: TRANSTHORACIC ECHO (TTE) LIMITED Diagnosis/ICD: 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 Pertinent History: A-Fib, [...] 0.6 m/s (0.6-0.9m/s) PV Max P.6 mmHg [id number] Ana Castro MD Electronically signed on 08/11/2024 at 5:54:03 PM Final [facility] Urineon 08-02-2024 Bacteria identified Cx Nom (U)Microbiology PROCEDURE: Urine Culture [R1] SOURCE: U Cath BODY SITE: COLLECTED DATE/TIME: 07/29/2024 14:33 EST RECEIVED DATE/TIME: 07/30/2024 17:43 EST START DATE/TIME: 07/30/2024 17:43 EST FREE TEXT SOURCE: ARLENE CASILLAS, Katia SAMUELS MD, Katia Hall FINAL REPORTS Final Report [] Verified Date/Time: 08/02/2024 08:59 EDT >100,000 cfu/ml Enterobacter cloacae Ertapenem -Resistant. >100,000 cfu/ml Enterobacter cloacae #2 Different Biotype. SUSCEPTIBILITY RESULTS LEGEND: S=Susceptible, N/R=Not Reported, Blank=Data not available, [...] Locations R1: This test was performed at: [facility], [address] [place] [address], [address]- , [place], JwcukqHbffzaSelect Medical [facility], Edwin ShawComment on above:Performed By: #### [id number] #### [facility] [address] [place] [address]22[address]Kqbgvwycsrq distribution width Auto (RBC) [Ratio]on 08-02-2024 Erythrocyte distribution width (RBC) [Ratio]Erythrocyte distribution width [Ratio] by Automated vocrsHwvx63.0-15.0[facility] Estimated glomerular filtration rate (GFR) non- Americanon 08-02-2024 GFR/1.73 sq M.predicted among non-blacks MDRD (S/P/Bld) [Vol rate/Area]Estimated glomerular filtration rate (GFR) non- AmericanLow>=60 mL/min/1.73m 2 [facility] CenterHematocrit Auto (Bld) [Volume fraction]on 75-40-2714Gfpcobzfiw (Bld) [Volume fraction]Hematocrit [Volume Fraction] of Blood by Automated bkgyjNfz19.0-54.0[facility] CenterHemoglobin [Mass/volume] in Bloodon 66-24-0684Jwpwqxrnqi (Bld) [Mass/Vol]Hemoglobin [Mass/volume] in PxjmpWda31.0-18.0[facility] CenterIron binding capacity [Mass/volume] in Serum or Plasmaon 72-05-3551Fqwy binding capacity [Mass/Vol]Iron binding capacity [Mass/volume] in Serum or Xwawos884.0-450.0 [facility] CenterIron saturation [Mass Fraction] in Serum or Plasmaon 48-33-3852Tiow saturation [Mass fraction]Iron saturation [Mass Fraction] in Serum or PlasmaMercy Health Springfield Regional Medical CenterLaboratory - Chemistry and Chemistry - challengeon 29-60-5796Karnjoa [Mass/Vol]3.2 g/dLLow 3.4-5.0[facility] CenterCalcium [Mass/Vol]8.5 mg/dL8.5-10.1 [facility] CenterChloride [Moles/Vol]107 mmol/B46-524PgrzmmvdjMercy Health [facility] Regional Medical CenterCO2 [Moles/Vol]28.3 mmol/L21.0-32.0[facility] CenterCobalamin (Vitamin B12) [Mass/Vol]399 pg/yI161-2195CurzoobltMercy Health Springfield Regional Medical CenterComment on above:Performed at: - [facility] [id number] Director: Morgan Carpenter PhD, Phone: [phone] [Mass/Vol]2.07 mg/dLHigh0.70-1.30[facility] CenterFerritin [Mass/Vol]35.0 ng/mL26.0-388.0[facility] GFR/1.73 sq M.predicted MDRD (S/P/Bld) [Vol rate/Area]38 mL/min/{1.73_m2}Low>=60 mL/min/1.73m 2FTriHealth McCullough-Hyde Memorial HospitalGlucose [Mass/Vol]106 mg/xS14-003 [facility] CenterIron [Mass/Vol]22.0 ug/dLLow65.0-175.0[facility] CenterMagnesium [Mass/Vol]2.1 mg/dL1.8-2.4FTriHealth McCullough-Hyde Memorial HospitalPotassium [Moles/Vol]4.1 mmol/L3.5-5.1FOhioHealth Berger Hospitalodium [Moles/Vol]144 mmol/I857-690AmxjcndppMercy Health [facility] Regional Medical CenterUrate [Mass/Vol]5.8 mg/dL3.5-7.2FTriHealth McCullough-Hyde Memorial HospitalUrea nitrogen [Mass/Vol]28.0 mg/dLHigh7.0-18.0[facility] CenterUrea nitrogen/Creatinine [Mass ratio]13.5 mg/mgMercy Health [facility] Center Laboratory - Urinalysison 54-28-5344Hbrmmkm (U) [Mass/Vol]19.4 mg/dLHigh<=11.9 [facility] CenterLeukocytes [#/volume] corrected for nucleated erythrocytes in Blood by Automated counon 91-72-8751NNI corrected for nucl RBC Auto (Bld) [#/Vol]Leukocytes [#/volume] corrected for nucleated erythrocytes in Blood by Automated coun4.0-11.0[facility] ClinicH Auto (RBC) [Entitic mass]on 67-03-7426EOU (RBC) [Entitic mass]MCH [Entitic mass] by Automated cnmveWzb93.9-34.0[facility] CenterMCHC Auto (RBC) [Mass/Vol]on 79-90-1950PMXQ (RBC) [Mass/Vol]MCHC [Mass/volume] by Automated pihqeKrg37.9-35.2FTriHealth McCullough-Hyde Memorial HospitalMCV Auto (RBC) [Entitic vol]on 95-30-9811KBQ (RBC) [Entitic vol]MCV [Entitic volume] by Automated countLow 80.0-94.0[facility] CenterNo Panel Informationon - Hydroxy Vitamin D Total48.3 ng/mLMercy Health Springfield Regional Medical CenterComment on above:<20 ng/mL Vit D ynnabiqau76-<30 ng/mL Vit D idmcskfmldyn27-766 ng/mL Vit D sufficient>100 ng/mL Potential XfersmdaXvjmry57.30 ng/mL8.60-58.90[facility] CenterParathyroid Hormone (Intact)62 pg/yC53-96IdikwcnqtMercy Health Springfield Regional Medical CenterComment on above:Performed at: [facility] [facility] [id number] Director: Morgan Carpenter PhD, Phone: [phone] Level3.1 mg/dL2.6-4.7FTriHealth McCullough-Hyde Memorial HospitalUrine Random Xrzjhsqqoi12.50 mg/dL20.00-300.00[facility] Platelet mean volume Auto (Bld) [Entitic vol]on 01-86-6792Oopcshby mean volume (Bld) [Entitic vol]Platelet mean volume [Entitic volume] in Blood by Automated count9.5-13.5FTriHealth McCullough-Hyde Memorial HospitalPlatelets Auto (Bld) [#/Vol]on 60-10-3635Ufypoatir (Bld) [#/Vol]Platelets [#/volume] in Blood by Automated -550AfaunhanyMercy Health Springfield Regional Medical CenterRBC Auto (Bld) [#/Vol]on 08-02-2024 RBC (Bld) [#/Vol]Erythrocytes [#/volume] in Blood by Automated countLow4.70-6.10 [facility] Southerum or plasma anion gap determinationon 09-35-9375Npvxi gap [Moles/Vol]Serum or plasma anion gap determinationMercy Health Springfield Regional Medical CenterUrine protein/creatinine ratioon 08-02-2024 Protein/Creatinine (U) [Ratio]Urine protein/creatinine ratioMercy Health Springfield Regional Medical CenterECG 12 Leadon 24-36-0388LSH revealed normal sinus rhythm with first-degree AV block, septal myocardial infarction of undetermined age, diffuse repolarization abnormalities, abnormal ECGCPACSUC [facility] Work Phone: ITPon 51-30-7467[place] [address] Cardiac Rehab Report Signed Patient: ALEX ANDERSON MR#: [id number] : 1945 Acct:[id number] Age/Sex: 78 / M ADM Date: 07/23/24 Loc: CR Attending Dr: TEO AL Ordering Physician: Martita Garnica D.O. Date of Service: 07/23/24 Procedure(s): ITP Accession Number(s): [id number] cc: [facility] Test Date: 2024-07-23 Pat Name: ALEX ANDERSON Department: Room: - Gender: Male Mercury Purifier: : 1945 Requested By: MARTITA GARNICA Order Number: [id number] Reading MD: MARTITA GARNICA Interpretive Statements Session Date: Electronically Signed On 07-25-2024 8:18:39 EST by MARTITA GARNICA Dictated By: Martita Garnica D.O. Signed By: 07/25/2418 07/25/24 0818 DD/ 1540 TD/TT: Mobile Equipment Mechanic:KORINAHRadiology, Radiologist, - 07/25/2024 [place] [address] Cardiac Rehab Report Signed Patient: ALEX ANDERSON MR#: [id number] : 1945 Acct:[id number] Age/Sex: 78 / M ADM Date: 07/23/24 Loc: CR Attending Dr: TEO AL Ordering Physician: Martita Garnica D.O. Date of Service: 07/23/24 Procedure(s): ITP Accession Number(s): [id number] cc: [facility] Test Date: 2024-07-23 Pat Name: ALEX ANDERSON Department: Room: - Gender: Male Mercury Purifier: : 1945 Requested By: MARTITA GARNICA Order Number: [id number] Reading MD: MARTITA GARNICA Interpretive Statements Session Date: Electronically Signed On 07-25-2024 8:18:39 EST by MARTITA GARNICA Dictated By: Martita Garnica D.O. Signed By: 07/25/2481707/25/24817 DD/ 1540 TD/TT: Mobile Equipment Mechanic: MARSHAL HealthcareITPOrdered By: Radiologist Radiology on 31-93-2063B[facility] Work Phone: ITPon 45-17-7551Sgvpjbwgt Study observation (narrative)[facility] HealthcareAmbulatory Visit Summaryon 83-87-0495Uvtqxtzhns Visit SummaryAmbulatory Visit Summary ALEX ANDERSON :1945 Visit Date:07/15/2024 Ambulatory Visit Instructions Your Diagnosis Urinary retention Zapien catheter problem Zapien catheter problem Anticoagulated, Anticoagulated Your Care Team Attending Physician - HEATHER OMALLEY PA-C Primary Care Physician - IDANIA CASILLAS, STANLEY [...] HEATHER OMALLEY PA-C Where: [facility] [address] [place] [address] [place] [address]- Friday 2:00 PM EDT With: Katia SAMUELS MD Where: [facility] [address] [place] [address] [place] [address]- Medications What How Much When Instructions New cephalexin (Keflex 250 mg Cap) 1 Capsules By Mouth Every day Refills: [address] [facility]/pharmacy #[id number] Unchanged albuterol (Albuterol (Eqv-ProAir HFA) 90 mcg/ inh inhalation aerosol) Contact prescribingphysician if questions or concerns Unchanged amiodarone (amiodarone [...] elemental iron) 45 mg oral tablet, extended release)1 Tablets By Mouth Every day Contact prescribing [...] physician if questions or concerns Pharmacy Information [facility]/pharmacy #[id number]: [address] [place], [place] [id number] [phone] What How Much When Comments Stop Taking ciprofloxacin (Cipro 500 mg Tab) 1 Tablets By Mouth Every day Allergies No Known Allergies No Known Medication Allergies Problems Ongoing - Any problem that you are currently receiving treatment for. 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 Dementia Zapien catheter problem Foreign body in bladder Gross hematuria History of bladder cancer Hydronephrosis Hydroureter Hyperkalemia Hyperlipidemia Hypertension Lesion of bladder Renal lesion Transient cerebral ischemic attack Urinary retention Patient Survey You may receive a survey via text or e-mail asking about yo (more content not included)...[facility] ShawUrology Office/Clinic Noteon 99-45-7212Rbbxtcr Office/Clinic NoteUrology Office/Clinic Note Chief Complaint cath change/discuss meds HPI Staff 78yr old male pt here for catheter change. & discuss meds. Pt was in the ER at the end of May for catheter blockage. PCP was concerned about the frequencyof catheter changes due to blockages. He has [...] WT: 205.03 lb BMI: 26.59 nontoxic appearing. zapien draining clear yellow urine. no sediment. no [...] CIC given their age and overall health. Zapien changed IO today. Return in 1 mo for change. Ordered: Body Mass Index (BMI) documented 3008F Current tobacco non-user 1036F Depression Screening Negative 3352F E&M of Est. Patient Moderate 30-39 Min 35707 Influenza immunization status assessed 1030F Insertion of temp indwelling bladder cath (zapien) simple 44492 Medication list documented in medical record 1159F Most recent diastolic blood pressure <80 mm Hg 3078F Patient screen for fall risk: no falls in last year or 1 fall with no injury in last year 1101F Review of all meds by a prescribing practitioner or clinical pharmacist documented in EHR 1160F Systolic BP <130 mm Hg (Most Recent) 3074F 2. Zapien catheter problem (T83.098A: Other mechanical complication of other urinary catheter, initial encounter) Has been to ER 8 times since September 2023 due to zapien clogging. 5x there was no blood. 3x it was blocked by clots. does irrigate zapien regularly (although it was found that for a while she was only using a fewml, but after education she is now flushing w 60ml). PCP started pt on daily suppressive abx. reports they think infection is causing the clog. Shesays it hasn't clogged in the 30 days he's been on the abx. She would like to continue it. Risks/benefits/side effects discussed. I will give a few refills and we will reassess in 2 mos. If cath clogs at all in the meantime then stop the suppressive abx. 3. 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 Patient Moderate 30-39 Min 47089 4. Bladder cancer (C67.9: Malignant neoplasm of bladder, unspecified) Original TURBT/extraction of 2 bladder calculi 09/12/22 - Noninvasive papillary urothelial carcinoma, low grade. Invasion is not recognized. A small fragment of detrusor muscle is present in the specimen. Last cysto 04/06/24. Next cysto 10/05/24. Orders: cephalexin, 250 mg = 1 cap(s), Oral, Daily, # 30 cap(s), Refills(s) 1, Pharmacy: [facility]/pharmacy #[id number], 187, cm, 07/15/24 10:46:00 EST, Height/Length Dosing, 93, kg, 07/15/24 10:46:00 EST, Weight Dosing sterile water, See Instructions, 500 mL, Refill(s) 5, Irrigate zapien catheter as needed with 60 cc sterile water, [facility]/pharmacy #[id number], 187, cm, 04/06/24 11:21:00 EST, Height/Length Dosing, 93, kg, 04/06/24 11:21:00 EST, Weight Dosing Follow-up With When Contact Information JOSSELIN BARR, HEATHER Luu, URL In 1 month [address] [facility] 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 Dementia Zapien catheter problem Foreign body in bladder Gross [...] mg= 1 cap(s), Oral, (more content not included)...Normal [facility] HospitalComment on above:Result Comment: Electronically Signed By: HEATHER OMALLEY PA-C\.gonsalo\Date and Time Signed: 07/15/2513:06 ESTALL THYROID STIM HORMONEon 64-66-0192Aazlndbktwiwqk and review of laboratory results AbnormalReynolds County General Memorial Hospital Qn0.039 m[IU]/[facility] HospitalCLINISYNCleveland Clinic Euclid HospitalOH PROTHROMBIN TIME INR W/O COUMon 94-30-0865Xinqtssflspwrz and review of laboratory resultsAbSelect Specialty HospitalPT Coag (PPP) [Time]61.5 s Critically [facility] CenterComment on above:RESULTS CALLED TO [facility] BY Vidya Valetnine at 1126 TBH INR7.04Critically [facility] CenterComment on above:RESULTS CALLED TO [facility] BY Vidya Valentine at 1127 DESIRED INR: 2.0-3.0 CONDITIONS NOT LISTED BELOW 2.5-3.5 FOR PROSTHETIC HEART VALVE REPLACEMENT 2.5-3.5 RECURRENT THROMBOSIS CLINISYNCRIVERTON HOSPITAL HealthcareITPon 99-31-1425[place] [address] Cardiac Rehab Report Signed Patient: ALEX ANDERSON MR#: [id number] : 1945 Acct:[id number] Age/Sex: 78 / M ADM Date: 06/25/24 Loc: CR Attending Dr: TEO AL Ordering Physician: Martita Garnica D.O. Date of Service: 06/25/24 Procedure(s): ITP Accession Number(s): [id number] cc: [facility] Test Date: 2024-06-25 Pat Name: ALEX ANDERSON Department: Room: Gender: M Mercury Purifier: : Requested By: Order Number: [id number] Silverio MD: MARTITA GARNICA Interpretive Statements Session Date: Electronically Signed On 06-25-2024 18:17:01 EST by MARTITA GARNICA Dictated By: Martita Garnica D.O. Signed By: 06/25/24181606/25/241816 DD/ 130 TD/TT: Mobile Equipment Mechanic:KORINAHRadiology, Radiologist, - 06/25/2024 [place] [address] Cardiac Rehab Report Signed Patient: ALEX ANDERSON MR#: [id number] : 1945 Acct:[id number] Age/Sex: 78 / M ADM Date: 06/25/24 Loc: CR Attending Dr: TEO AL Ordering Physician: Martita Garnica D.O. Date of Service: 06/25/24 Procedure(s): ITP Accession Number(s): [id number] cc: [facility] Test Date: 2024-06-25 Pat Name: ALEX ANDERSON Department: Room: Gender: M Mercury Purifier: : Requested By: Order Number: [id number] Silverio MD: MARTITA GARNICA Interpretive Statements Session Date: Electronically Signed On 06-25-2024 18:17:01 EST by MARTITA GARNICA Dictated By: Martita Garnica D.O. Signed By: 06/25/24181606/25/241816 DD/ 130 TD/TT: Mobile Equipment Mechanic: MARSHAL HealthcareRadiology Study observation (narrative)[facility] HealthcareITPOrdered By: Radiologist Radiology on 18-75-3163[facility] Work Phone: Urology Office/Clinic Noteon 48-19-3531Mdztuqw Office/Clinic NoteUrology Office/Clinic Note HPI Staff 4 wk cath change. History of Present Illness I have reviewed and verified the staff HPI to be accurate for this encounter. Portions of this record may have been created with voice recognition artificial intelligence software, specifically [employer], [employer] and or [employer]. Substitutions may have occurred due to the inherent limitations of voice recognition and artificial intelligence software. Physical Exam General: Well developed, well nourished, in no acute distress. Here w/ today who does assist in providing some of his history. Assessment/Plan PRW pt 1. Gross hematuria (R31.0: Gross hematuria) [facility] ER 04/28/2024 with complaints of a clogged catheter. He was irrigated at that time with numerous clots, required CBI x 2 bags. Urine not suspicious for infection, discharged with Zapien in place. Patient/ do not recall any trauma to the Zapien, denies symptoms of UTI. Urine in office [...] virus vaccine, inactivated 03/26/2023 Recorded SARS-CoV-2 (COVID-19) mRNAMUL.ORD![id number] 03/29/2022 Recorded influenza virus vaccine, inactivated 03/16/2022 Recorded influenza virus vaccine, inactivated 03/06/2022 Recorded SARSCoV2 mRNA (more content not included)...[facility] Comment on above:Result Comment: Electronically Signed By: TC Boles APRN, Blanca Hadley\.br\Date and Time Signed: 06/07/24 10:43 ESTAmbulatory Visit Summaryon 38-44-4722Axnnmmckdc Visit SummaryAmbulatory Visit Summary ALEX ANDERSON :1945 Visit Date:06/01/2024 [...] HEATHER OMALLEY PA-C Where: [facility] [address] [place] [address]- Friday. 2024 2:00 PM EDT With: ARLENE CASILLAS, Katia Hall Where: [facility] [place] [address] [place] [address]- Medications What How Much When Instructions Unchanged [...] elemental iron) 45 mg oral tablet, extended release)1 Tablets By Mouth Every day Unchanged furosemide [...] choosing us for your care. [facility] 74-47-4474LGE [Catalytic activity/Vol]12 U/LNormal7The [facility] Physician GroupComment on above:Performed By: #### PTT, PT #### [facility] [address] [place] [id number] USAAlanine aminotransferase [Enzymatic activity/volume] in Serum or PlasmaOrdered By: Teo Al on 69-94-8302RGI [Catalytic activity/Vol]Alanine aminotransferase [Enzymatic activity/volume] in Serum or Plasma7[facility] Medical CenterAspartate Amino Transferaseon 97-41-0042LMO [Catalytic activity/Vol]13 U/RUllrjp71-41Hhp [facility] Physician GroupComment on above:Performed By: #### PTT, PT #### [facility] [address] [place] [address] USAAspartate aminotransferase [Enzymatic activity/volume] in Serum or PlasmaOrdered By: Teo Al on 96-87-3409SIL [Catalytic activity/Vol]Aspartate aminotransferase [Enzymatic activity/volume] in Serum or Quqzvl78-01ChxnklntkMercy Health Springfield Regional Medical CenterBasic Metabolic Panelon 05-21-2024 Anion gap [Moles/Vol]14.7 mmol/LNormal6.0-15.0The [facility] Comment on above:Performed By: #### PTT, PT #### [place] [id number] USACalcium [Mass/Vol]9.1 mg/dLNormal8.6-10.3The [facility] Physician GroupComment on above:Performed By: #### PTT, PT #### [facility] [address] [place] [address] USAChloride [Moles/Vol]105 mmol/MSquiis00-653Tgf [facility] Physician GroupComment on above:Performed By: #### PTT, PT #### [facility] [address] [place] [phone] USACO2 [Moles/Vol]27.8 mmol/IYfzyyd86.0-31.0The [facility] Physician GroupComment on above:Performed By: #### PTT, PT #### [facility] [address] [place] [address] USACreatinine [Mass/Vol]2.20 mg/dLHigh0.70-1.30The [facility] Physician GroupComment on above:Performed By: #### PTT, PT #### [facility] [address] [place] [address] USAEstimated GFR29.538 mL/MinNormalThe [facility]arr[facility] Physician GroupComment on above:Performed By: #### PTT, PT #### [facility] [address] [place] [address] USAGlucose [Mass/Vol]124 mg/wUNggk92-769Mba [facility] Physician GroupComment on above:Result Comment: Random Glucose Reference Range is dependent on time and content of last meal. Glucose of more than 200 mg/dL in a nonstressed, ambulatory subject supports the diagnosis of Diabetes Mellitus. ADA recommended reference rangePerformed By: #### PTT, PT #### [place] [address] USAPotassium [Moles/Vol]4.5 mmol/LNormal3.5-5.1The [facility] Physician GroupComment on above:Performed By: #### PTT, PT #### [place] [address] USASodium [Moles/Vol]143 mmol/AFvcdpx930-587Dqa [facility] Physician GroupComment on above:Performed By: #### PTT, PT #### [place] [address] USAUrea nitrogen [Mass/Vol]34 mg/dLHigh7-25The [facility] Physician GroupComment on above:Performed By: #### PTT, PT #### [facility] [address] [place] [address] USABasophils Auto (Bld) [#/Vol]Ordered By: Teo Al on 16-70-4188Xjtgkhcdq (Bld) [#/Vol]Automated basophil count0.0-0.2FTriHealth McCullough-Hyde Memorial HospitalBasophils/100 WBC Auto (Bld)Ordered By: Teo Al on 93-46-0290Cwjdtcqyo/100 WBC (Bld)Automated basophil %.Firelands Regional Medical CenterCalcium [Mass/volume] in Serum or PlasmaOrdered By: Teo Al on 55-23-4681Cjingki [Mass/Vol]Calcium [Mass/volume] in Serum or Plasma8.6-10.3 [facility] Medical CenterCarbon dioxide, total [Moles/volume] in Serum or PlasmaOrdered By: Teo Al 87-99-9917OK8 [Moles/Vol]Carbon dioxide, total [Moles/volume] in Serum or Goiigb64.0-31.0[facility] Medical CenterChloride [Moles/volume] in Serum or PlasmaOrdered By: Teo Al 96-50-0519Aztbncrp [Moles/Vol]Chloride [Moles/volume] in Serum or Tstetu60-085 [facility] Medical CenterCholesterol [Mass/volume] in Serum or Plasma Ordered By: Teo Al 24-16-7944Qjvrdnhfluv [Mass/Vol]Cholesterol [Mass/volume] in Serum or VboxexIkt158-750ObdmfywtnMercy Health Springfield [facility] Comment on above:Chol less than 200 mg/dl low riskChol 201-239 mg/dl borderline riskChol 240 mg/dl and greater high riskCholesterol in HDL [Mass/volume] in Serum or PlasmaOrdered By: Teo Al 21-83-6259Lggedffcald in HDL [Mass/Vol]Serum or plasma high density lipoprotein (HDL) cholesterol measurement 23-92[facility] Medical CenterComment on above:HDL CHOL ATP-III CLASSIFICATION Cardiovascular RiskHDL > or equal to 60 mg/dL LOWHDL < 40 mg/dL HIGHCholesterol in LDL Calc [Mass/Vol]Ordered By: Teo Al on 05-21-2024 Cholesterol in LDL [Mass/Vol]Cholesterol in LDL [Mass/volume] in Serum or Plasma by calculation0-100Mer[facility] Medical CenterComment on above:LDL ATP III CLASSIFICATIONLDL less than 100 mg/dL OptimalLDL 100-129 mg/dL Near or above nqlvbiuUON357-344 mg/dL Borderline highLDL 160-189 mg/dL HighLDL greater than 189 mg/dL Very highCholesterol in VLDL Calc [Mass/Vol]Ordered By: Teo Al 20-89-4524Krrexacqdjj in VLDL [Mass/Vol]Cholesterol in VLDL [Mass/volume] in Serum or Plasma by calculationMercy Health Springfield Regional Medical CenterComplete Blood Count Auto Diffon 36-54-0928Ulfifsynz (Bld) [#/Vol]0.1 10*3/uLNormal0.0-0.2The [facility] Physician GroupComment on above:Result Comment: PERFORMED BY: [place] [address] PATHOLOGIST PROCUREMENT ASSISTANT ED CRUZ M.D.Performed By: #### PTT, PT #### [place] [address] USABasophils/100 WBC (Bld)1.0 %Normal.The [facility] Physician GroupComment on above:Performed By: #### PTT, PT #### [place] [address] USAEosinophils (Bld) [#/Vol]0.2 10*3/uLNormal0.0-0.45The [facility] Physician GroupComment on above:Performed By: #### PTT, PT #### [place] [address] USAEosinophils/100 WBC (Bld)3.3 %Normal.The [facility] Physician GroupComment on above:Performed By: #### PTT, PT #### [place] [address] USAErythrocyte distribution width (RBC) [Ratio]18.1 %High 12.0-14.8The [facility] Physician GroupComment on above:Performed By: #### PTT, PT #### [place] [address] USAHematocrit (Bld) [Volume fraction]30.3 %Low38.8-50.0The [facility] Physician GroupComment on above:Performed By: #### PTT, PT #### [place] [address] USAHemoglobin (Bld) [Mass/Vol]9.5 g/dLLow13.0-17.0The [facility] Physician GroupComment on above:Performed By: #### PTT, PT #### [facility] [address] [place] [address] USALymphocytes (Bld) [#/Vol]1.3 10*3/uLNormal1.00-4.8The [facility] Physician GroupComment on above:Performed By: #### PTT, PT #### [facility] [address] [place] [address] USALymphocytes/100 WBC (Bld)22.2 %Normal.The [facility] Physician GroupComment on above:Performed By: #### PTT, PT #### [facility] [address] [place] [address] USAMCH (RBC) [Entitic mass]23.3 pgLow27.5-35.2The [facility] Physician GroupComment on above:Performed By: #### PTT, PT #### [place] [address] USAMCV (RBC) [Entitic vol]74.4 fLLow83.5-101The [facility] Physician GroupComment on above:Performed By: #### PTT, PT #### [place] [address] USAMean Corpuscular HGB Conc31.3 g/dLLow32.5-35.6The [facility] Physician GroupComment on above:Performed By: #### PTT, PT #### [place] [address] USAMonocytes (Bld) [#/Vol]0.6 10*3/uLNormal0.0-0.8The [facility] Physician GroupComment on above:Performed By: #### PTT, PT #### [place] [address] USAMonocytes/100 WBC (Bld)10.2 %Normal.The [facility] Physician GroupComment on above:Performed By: #### PTT, PT #### [place] [address] USANeutrophils (Bld) [#/Vol]3.8 10*3/uLNormal1.8-7.7The [facility] Physician GroupComment on above:Performed By: #### PTT, PT #### [facility] [address] [place] [address] USANeutrophils/100 WBC (Bld)63.3 %Normal.The [facility] Physician GroupComment on above:Performed By: #### PTT, PT #### [facility] [address] [place] [address] USANRBC%0.1 /100{WBC}Normal0-0.5The [facility] Comment on above:Performed By: #### PTT, PT #### [facility] [address] [place] [address] USAPlatelet mean volume (Bld) [Entitic vol]8.1 fLNormal 6.6-10.1The [facility] Physician GroupComment on above:Performed By: #### PTT, PT #### [facility] [address] [place] [address] USAPlatelets (Bld) [#/Vol]315 10*3/hWNyetxc949-652Efk [facility] Physician GroupComment on above:Performed By: #### PTT, PT #### [facility] [address] [place] [address] USARBC (Bld) [#/Vol]4.07 10*6/uLNormal3.90-5.60The [facility] Physician GroupComment on above:Performed By: #### PTT, PT #### [facility] [address] [place] [address] USAWBC (Bld) [#/Vol]6.1 10*3/uLNormal4.1-10.5The [facility] Physician GroupComment on above:Performed By: #### PTT, PT #### [facility] [address] [place] [address] USACreatinine [Mass/volume] in Serum or PlasmaOrdered By: Teo Al on 45-20-0647Limvvckohd [Mass/Vol]Creatinine [Mass/volume] in Serum or PlasmaHigh0.70-1.30[facility] CenterEC [address] 01-07-6921FUF revealed normal sinus rhythm, IVCD, diffuse repolarization abnormalities, septal myocardial infarction of undetermined age, abnormal ECGCPACSUC [facility] Work Phone: Eosinophils Auto (Bld) [#/Vol]Ordered By: Teo Al on 75-26-9816Lknespjvmoi (Bld) [#/Vol]Automated eosinophil count0.0-0.45 [facility] CenterEosinophils/100 WBC Auto (Bld)Ordered By: Teo Al on 31-02-7989Btoeccwlrlm/100 WBC (Bld)Automated eosinophil %. [facility] Medical CenterErythrocyte distribution width Auto (RBC) [Ratio]Ordered By: Teo Al on 53-61-4799Crzznpcumba distribution width (RBC) [Ratio]Erythrocyte distribution width [Ratio] by Automated countHigh 12.0-14.8[facility] Medical CenterGlucose [Mass/volume] in Serum or PlasmaOrdered By: Teo Al on 94-78-7069Bxijmyp [Mass/Vol]Glucose [Mass/volume] in Serum or OrzgwtPici69-382LocmavwyfMercy Health Springfield Regional Medical Center Comment on above:ADA recommended reference rangeRandom Glucose Reference Range is dependent on time and content of last meal. Glucose of more than 200 mg/dL in a nonstressed, ambulatory subject supports the diagnosisof Diabetes Mellitus. Hematocrit Auto (Bld) [Volume fraction]Ordered By: Teo Al on 05-21-2024 Hematocrit (Bld) [Volume fraction]Hematocrit [Volume Fraction] of Blood by Automated cwtazOcv16.8-50.0[facility] Medical CenterHemoglobin [Mass/volume] in BloodOrdered By: Teo Al on 05-76-5942Mmwyrldtxa (Bld) [Mass/Vol]Hemoglobin [Mass/volume] in RitfaCdh73.0-17.0[facility] CenterLeukocytes [#/volume] corrected for nucleated erythrocytes in Blood by Automated counOrdered By: Teo Al on 55-89-2821WTK corrected for nucl RBC Auto (Bld) [#/Vol]Leukocytes [#/volume] corrected for nucleated erythrocytes in Blood by Automated coun4.1-10.5FTriHealth McCullough-[facility] Hospital Lipid Panelon 24-88-6575Hrjmjoqaats [Mass/Vol]89 mg/hNFbi686-273Pvj [facility] Physician GroupComment on above:Result Comment: Chol less than 200 mg/dl low risk Chol 201-239 mg/dl borderline risk Chol 240 mg/dl and greater high riskPerformed By: #### PTT, PT #### [facility] [address] [place] [address] USACholesterol in HDL [Mass/Vol]41 mg/eNDhoaxv50-09Egb [facility] Physician GroupComment on above:Result Comment: HDL CHOL ATP-III CLASSIFICATION Cardiovascular Risk HDL > or equal to 60 mg/dL LOW HDL < 40 mg/dL HIGHPerformed By: #### PTT, PT #### [facility] [address] [place] [address] USACholesterol.total/Cholesterol in HDL [Mass ratio]2.2 {ratio}Normal<5.0The [facility] Physician GroupComment on above:Performed By: #### PTT, PT #### [facility] [address] [place] [address] USALDL Cholesterol,Bneaoncrmq88 mg/dLNormal0-100The [facility] Physician GroupComment on above:Result Comment: LDL ATP III CLASSIFICATION LDL less than 100 mg/dL Optimal LDL 100-129 mg/dL Near or above optimal LDL 130-159 mg/dL Borderline high LDL 160-189 mg/dL High LDL greater than 189 mg/dL Very highPerformed By: #### PTT, PT #### [facility] [address] [place] [address] USATriglyceride w/Xuujvo21 mg/dLNormal0-149The [facility] Physician GroupComment on above:Result Comment: TRIG ATP III CLASSIFICATION TRIG less than 150 mg/dL Normal TRIG 150-199 mg/dL Borderline high TRIG 200-500 mg/dL High TRIG greater than 500 mg/dL Very high Standard traceable to the Center for Disease Conrtrol and Prevention (CDC) test method.Performed By: #### PTT, PT #### [facility] [address] [place] [address] USAVLDL PZDGPFWKHUK16 mg/dLNormalThe [facility] Physician GroupComment on above:Performed By: #### PTT, PT #### [facility] [address] [place] [address] USALymphocytes Auto (Bld) [#/Vol]Ordered By: Teo Al on 16-04-9424Pdoomawtnlp (Bld) [#/Vol]Lymphocytes [#/volume] in Blood by Automated count1.00-4.8[facility] Medical CenterLymphocytes/100 WBC Auto (Bld)Ordered By: Teo Al on 78-54-5734Lynmphtfhip/100 WBC (Bld) Lymphocytes/100 leukocytes in Blood by Automated count.[facility] ClinicH Auto (RBC) [Entitic mass]Ordered By: Teo Al on 24-14-5494RNC (RBC) [Entitic mass]MCH [Entitic mass] by Automated countLow 27.5-35.2FTriHealth McCullough-Hyde Memorial HospitalMCHC Auto (RBC) [Mass/Vol]Ordered By: Teo Al on 20-28-8402HFLW (RBC) [Mass/Vol]MCHC [Mass/volume] by Automated svjelZib46.5-35.6FTriHealth McCullough-Hyde Memorial HospitalMCV Auto (RBC) [Entitic vol] Ordered By: Teo Al on 71-68-6870WYR (RBC) [Entitic vol]MCV [Entitic volume] by Automated swsdhHnm89.5-101[facility] CenterMonocytes Auto (Bld) [#/Vol]Ordered By: Teo Al on 43-29-6119Ieueqhzsk (Bld) [#/Vol]Automated blood monocyte count0.0-0.8[facility] Monocytes/100 WBC Auto (Bld)Ordered By: Teo Al on 05-21-2024 Monocytes/100 WBC (Bld)Automated monocyte %.[facility] Neutrophils Auto (Bld) [#/Vol]Ordered By: Teo Al on 05-21-2024 Neutrophils (Bld) [#/Vol]Neutrophils [#/volume] in Blood by Automated count 1.8-7.7FTriHealth McCullough-Hyde Memorial HospitalNeutrophils/100 WBC Auto (Bld)Ordered By: Teo Al on 89-39-3200Knamvadhxjs/100 WBC (Bld)Automated neutrophil %. [facility] CenterNo Panel InformationOrdered By: Teo Al on 65-19-8388Hlyvfaveo GFR (CKD-EPI)29.538 mL/MinMercy Health Springfield Regional Medical CenterPharmacy Creatinine Clearance (ChemN/AFTriHealth McCullough-Hyde Memorial Hospital Nucleated erythrocytes [Presence] in Blood by Automated countOrdered By: Teo Al on 86-52-1657Tnpbsymst RBC Auto Ql (Bld)Nucleated erythrocytes [Presence] in Blood by Automated count0-0.5FTriHealth [facility] Platelet mean volume Auto (Bld) [Entitic vol]Ordered By: Teo Al on 51-70-6360Ftkdlkvi mean volume (Bld) [Entitic vol]Platelet mean volume [Entitic volume] in Blood by Automated count6.6-10.1FTriHealth [facility] Hospital Platelets Auto (Bld) [#/Vol]Ordered By: Teo Al on 37-93-7209Esvkqniij (Bld) [#/Vol]Platelets [#/volume] in Blood by Automated -555RwddnxkgtMercy Health Springfield Regional Medical CenterPotassium [Moles/volume] in Serum or PlasmaOrdered By: Teo Al 54-62-9021Nwyijteuj [Moles/Vol]Potassium [Moles/volume] in Serum or Plasma3.5-5.1FTriHealth McCullough-Hyde Memorial HospitalRBC Auto (Bld) [#/Vol] Ordered By: Teo Al 55-02-2136JAC (Bld) [#/Vol]Erythrocytes [#/volume] in Blood by Automated count3.90-5.60[facility] Southerum or plasma anion gap determinationOrdered By: Teo Al on 31-51-1511Kutds gap [Moles/Vol]Serum or plasma anion gap determination6.0-15.0[facility] Southerum or plasma total cholesterol/high density lipoprotein (HDL) cholesterol mass ratOrdered By: Teo Al on 05-21-2024 Cholesterol.total/Cholesterol in HDL [Mass ratio]Serum or plasma total cholesterol/high density lipoprotein (HDL) cholesterol mass rat<5.0[facility] Southodium [Moles/volume] in Serum or PlasmaOrdered By: Teo lA on 03-14-4955Ytxvad [Moles/Vol]Sodium [Moles/volume] in Serum or Qfdlmn093-283FwqekksaoMercy Health Springfield Regional Medical CenterThyroid Stimulating Hormoneon 74-75-5670IWQ Qn0.11 m[IU]/LLow0.45-5.33The [facility] Physician GroupComment on above:Result Comment: PERFORMED BY: [place] [address] PATHOLOGIST PROCUREMENT ASSISTANT ED CRUZ M.D.Performed By: #### PTT, PT #### [place] [address] USAThyrotropin [Units/volume] in Serum or PlasmaOrdered By: Teo Al on 16-39-0069OSR QnThyrotropin [Units/volume] in Serum or Plasma Low0.45-5.33[facility] Medical CenterTriglyceride [Mass/volume] in Serum or PlasmaOrdered By: Teo Al on 34-77-8330Uotdybqbfhfg [Mass/Vol] Triglyceride [Mass/volume] in Serum or Plasma0-149[facility] CenterComment on above:TRIG ATP III CLASSIFICATIONTRIG less than 150 mg/dL NormalTRIG 150-199 mg/dL Borderline highTRIG 200-500 mg/dL High TRIG greater than 500 mg/dL Very highStandard traceable to the Center for Disease Conrtrol and Prevention (CDC) test method.Urea nitrogen [Mass/volume] in Serum or Plasma Ordered By: Teo Al on 98-99-1893Jdjk nitrogen [Mass/Vol]Urea nitrogen [Mass/volume] in Serum or PlasmaHigh7-25[facility] CenterWBC Auto (Bld) [#/Vol]Ordered By: Teo Al on 59-31-1165UPD (Bld) [#/Vol] Leukocytes [#/volume] in Blood by Automated count4.1-10.5FTriHealth McCullough-Hyde Memorial HospitalUroVysion Fish and Urine Cyto ([facility])on 58-13-3553WMRQEH & UC Diagnosis InfoInvalid Interpretation CodeFisher Med[facility] Union Memorial HospitalComment on above:Result Comment: A:Urine,Bladder Wash:Bladder Wash Diagnosis Summary - Paucicellular specimen, non-diagnostic. Diagnosis Summary - The UroVysion FISH study detected normal copy numbers for chromosomes 3, 7, 17,and 9p21. 25 cells were analyzed in this evaluation. No evidence of aneuploidy for chromosomes 3, 7, or 17 or deletion of the 9p21 locus was found in cells present in this specimen. This test does not rule out the possibility of a low grade non-invasive papillary urothelial carcinoma. These findings should be correlated with cytology and cystoscopy results. * CPT: 03849, 89140. Microscopic Notes - Microscopic Notes - Abnormal cells 9p21 deletions: Abnormal cells aneploid events: Total cells analyzed: 25 Hematuria: Gross Description Site ID:A color Colorless fixative Alcohol Received 90 mls of slightly cloudy colorless fluid with the patient's name and, Bladder Wash on the vial. Electronically signed by : on: 04/12/2024 16:53:27Performed By: #### [id number] #### [facility] [address] [place], [place] [address]Qmmlicimle Visit Summaryon 07-37-8625Aowysixfjq Visit Summary Ambulatory Visit Summary ALEX ANDERSON [...] Urology [address], [place] [address]- Medications What How Much When Instructions Unchanged albuterol (Albuterol (Eqv-ProAir HFA) 90 mcg/ inh inhalation aerosol) Contact prescribingphysician if questions or concerns Unchanged amiodarone (amiodarone [...] elemental iron) 45 mg oral tablet, extended release)1 Tablets By Mouth Every day Contact prescribing [...] health care provider may (more content not included)...Normal [facility]inder[facility] 69-93-4655OunppvbtpBajexwrpi From: Dana Rivas To: EU - Recalls Samuels; Sent: 02/20/2024 14:44:26 EDT Show up: 07/24/2024 14:44:00 EST Subject: Cysto/FISH/cytol, cath chng Due Date/Time: 08/16/2024 14:44:00 EDT Reminder/Recall Patient is due in September 2024 for 6 month cysto/fish/cytol, cath change (bt ck) Patient sched 10/05/24NoSuburban Community Hospital & Brentwood HospitalUroVysion Fish and Urine Cyto ([facility])on 10-75-5586IPGH Method of ExtractionBladder WashSelect Medical [facility] Clinic Rehabilitation Hospital, Edwin ShawComment on above:Performed By: #### [id number] #### [facility] [address] [place], [place] [address]MNVN Number of Znvy0Rjljyoh Interpretation [facility] CenterComment on above:Performed By: #### [id number] #### [facility] [address] [place], [place] [address]BFKR SpecimenBladder WashSelect Medical [facility], [facility] Comment on above:Performed By: #### [id number] #### [facility] [address] [place], [place] [address]ALKL Type of ServiceTechnical OnlySelect Medical [facility] Rehabilitation Hospital, Edwin ShawComment on above:Performed By: #### [id number] #### [facility] [address] [place], [place] [address]Evlmeqe Office/Clinic Noteon 15-11-5175Pbxgufm Office/Clinic NoteUrology Office/Clinic Note Chief Complaint cysto HPI Staff Cysto ABX TAKE, zapien change/bladder wash History of Present Illness Tests [...] suite. Patient is placed in supine position. Zapien catheter removed. Patient prepped in the usual [...] of fever, chills, or flank pain. The zapien was changed in the office today with [...] was going to start monthly zapien changes. [1] [facility] ER on 09/15/22 due to catheter clogged. Pt was diagnosed w/ UTI and treated w/ Cipro 500 mg BIDfor x 7 days. Attempted urocuff, pt was unable to void, PVR 348 cc, cath placed 10/04/22. [2] Pt has been in the ER multiple times due to issues with Zapien. Most recently, pt presented to [facility] ER 09/29/23 and 09/30/23 due to catheter not draining. [3] Cath changed IO today, see procedure section. 3. BPH with urinary obstruction (N40.1: Benign prostatic hyperplasia with lower urinary tract symptoms) S/p Rezum 06/10/23. Not taking any BPH meds. Maintained with chronic zapien, see #2. Follow-up With When Contact Information ARLENE CASILLAS, Katia Hall, [facility] [address], [place] [address]- Additional Instructions: 6 mos surveillance cysto/bt ck/FISH/cytol Patient Education Indwelling Urinary Catheter Insertion, Care After Cancer Screening for Males I, Citlalli Rushing, personally scribed for Dr. Samuels on 04/06/2024 11:35:18. . Documentation recorded by the scribe, Citlalli Rushing, accurately reflects the services(s) I performed and decisions made by me. Authenticated by Dr. Samuels on 04/06/2024 11:36:29. Problem List/Past Medical History (more content not included)...[facility], [facility] ShawComment on above: Result Comment: Electronically Signed By: Katia SAMUELS MD\.br\Date and Time Signed: 04/06/24 11:36 EST\.br\Electronically Co-Signed By: Citlalli Rushing\.br\Date and Time Co-Signed: 04/06/24 11:35 ESTALL HEMOGLOBINon 03-23-2024 Hemoglobin (Bld) [Mass/Vol]9.5 g/dLLow14.0 - 18.0 g/dLNOMS Healthcare Interpretation and review of laboratory resultsAbnormalNOMS HealthcareCLINISYNC NOMS HealthcareNo Panel InformationOrdered By: Rosalie Bailey on 26-95-6098Uqwql Strep (POC)[facility] CenterXR chest 2V*on 01-76-0451VH chest 2V*[facility] [place] [address] XRay Report Signed Patient: Alex Anderson MR#: [id number] 36 : 1945 Acct:[id number] Age/Sex: 78 / M ADM Date: 03/08/24 Loc: XDUCLY Room: Type: [facility] Attending Dr: Rosalie Bailey APRN Copies to: [...] Corky Max M.D.03/08/2024 2:03 PM Dictation Location: [place] [address] Transcribed By: [facility] 03/08/24 1403 Dictated By: Corky Max II, MD 03/08/24 140 Signed By: 03/08/24 140[facility] Physician GroupMENLO [facility] HEMOGLOBINon 03-04-2024 Hemoglobin (Bld) [Mass/Vol]10.0 g/dLLow14.0 - 18.0 g/dLNORI Healthcare Interpretation and review of laboratory resultsAbnormalNORI HealthcareCLINISYNC [facility] 49-42-7904UicjmrcklHagwodfzi From: Dana Rivas To: EU - Marlena Samuels; Sent: 12/02/2023 11:09:10 EDT Show up: 01/25/2024 [...] was notified ok to keep cysto on 04/06/24.LGNoSuburban Community Hospital & Brentwood HospitalECG [address] 53-71-4224VAY revealed normal sinus rhythm, left axis deviation, 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, QT prolongation, IVCDCPAProMedica Fostoria Community Hospital Work Phone: bacteria [Presence] in Urine by AutomatedOrdered By: Rob Almazan on 48-31-8445Gmihxfwb Auto Ql (U)Rare [HPF]None Seen [facility] Medical CenterBilirubin Test strip Ql (U)Ordered By: Rob Almazan on 91-42-6322Liecvmnst Ql (U)NegativeNegativeMercy Health Springfield Regional Medical CenterColor of Urine by AutoOrdered By: Rob Almazan on 98-67-7027Twrrb (U)YellowNormalYellowMercy Health Springfield Regional Medical CenterComment on above:Order Comment: Name Collection Type:: Zapien CatheterPerformed By: #### ADDONUAPLUS, CUU #### [facility] [address] [place] [address] USADipstick and Microscopicon 17-99-1111Kzhdtjus,UrineRare NormalNone SeenThe At[facility] Cabarrus Physician GroupComment on above:Order Comment: Name Collection Type:: Zapien CatheterPerformed By: #### ADDONUAPLUS, CUU #### [facility] [address] [place] [address] USABilirubin,UrineNegativeNormalNegativeThe At[facility] Cabarrus Physician GroupComment on above:Order Comment: Name Collection Type:: Zapien CatheterPerformed By: #### ADDONUAPLUS, CUU #### [facility] [address] [place] [address] USAGlucose Ql (U)NormalNormalNormalThe [facility] Cabarrus Physician GroupComment on above:Order Comment: Name Collection Type:: Zapien Catheter Performed By: #### ADDONUAPLUS, CUU #### [place] [id number] USAHyaline Casts,UrineNoneNormal0-8The [facility] Cabarrus Physician GroupComment on above:Order Comment: Name Collection Type:: Zapien Catheter Performed By: #### ADDONUAPLUS, CUU #### [place] [address] USAMucus,UrineRareNormalThe At[facility] Cabarrus Physician GroupComment on above:Order Comment: Name Collection Type:: Zapien CatheterResult Comment: PERFORMED BY: [place] [address] PATHOLOGIST PROCUREMENT ASSISTANT OREN OWEN M.D.Performed By: #### ADDONUAPLUS, CUU #### [place] [address] USANitrite,UrineNegativeNormalNegativeAdventhealth Palm Coast Parkway Physician GroupComment on above:Order Comment: Name Collection Type:: Zapien Catheter Performed By: #### ADDONUAPLUS, CUU #### [place] [address] USAOccult Blood,Urine2+HighNegativeAdventhealth Palm Coast Parkway Physician GroupComment on above:Order Comment: Name Collection Type:: Zapien CatheterResult Comment: PERFORMED BY: [place] [address] PATHOLOGIST PROCUREMENT ASSISTANT OREN OWEN M.D.Performed By: #### ADDONUAPLUS, CUU #### [place] [address] USAProtein,UrineTraceHighNegativeAdventhealth Palm Coast Parkway Physician GroupComment on above:Order Comment: Name Collection Type:: Zapien Catheter Performed By: #### ADDONUAPLUS, CUU #### [address] [address] USARBC,Ttznd24-08Nmjc8-7Osx [facility]arrus Physician GroupComment on above:Order Comment: Name Collection Type:: Zapien CatheterPerformed By: #### ADDONUAPLUS, CUU #### [facility] [address] [place] [address] USASpecificy [place],Urine1.010Mvkkhb2.001-1.030[facility] Physician GroupComment on above:Order Comment: Name Collection Type:: Zapien CatheterPerformed By: #### ADDONUAPLUS, CUU #### [place] [address] USAUrobilinogen,Urine2 mg/dLHighNormalThSt. [facility] Physician GroupComment on above:Order Comment: Name Collection Type:: Zapien Catheter Performed By: #### ADDONUAPLUS, CUU #### [place] [address] USAWBC CLUMP, UrineRareHighNone SeenAdventhealth Palm Coast Parkway Physician GroupComment on above:Order Comment: Name Collection Type:: Zapien Catheter Performed By: #### ADDONUAPLUS, CUU #### [place] [address] USAWBC,Phvoj99-74Corg0-8Czx [facility] Physician GroupComment on above:Order Comment: Name Collection Type:: Zapien CatheterPerformed By: #### ADDONUAPLUS, CUU #### [place] [address] USAECG 12 lead ECGon 19-03-0247QVY 12 lead ECGSUBURB[facility] [place] [address] [place] [address] Electrocardiograph Report Signed Patient: Alex Anderson MR#: [id number] 36 : 1945 Acct:[id number] Age/Sex: 78 / M ADM Date: 01/16/24 Loc: Room: [address] [place] [address] Type: ADM IN Attending Dr: Nas Pruett [...] Anteroseptal infarct present Confirmed by Misael Campbell ([id number]) on 01/23/2024 11:36:17 AM Referred By: Electronically Signed By: Misael Campbell Transcribed By: MUS Signed By Misael Campbell MD 01/23/24 [facility] Physician GroupEpithelial cells.squamous [#/area] in Urine sediment by Automated countOrdered By: Rob Almazan on 30-49-4989Hpewmiiptc cells.squamous Auto (Urine sed) [#/Area]N/[facility] CenterErythrocytes [#/area] in Urine sediment by Automated countOrdered By: Rob Almazan on 00-78-4777SXH Auto (Urine sed) [#/Area] 20-49 [HPF]High0-4FTriHealth McCullough-Hyde Memorial HospitalGlucose [Mass/volume] in Urine by Test stripOrdered By: Rob Almazan on 12-71-3907Lhgecvm Test strip (U) [Mass/Vol]Normal mg/dLNoCenterville Hemoglobin Test strip Ql (U)Ordered By: Rob Almazan on 01-23-2024 Hemoglobin Ql (U)2+HighNegUniversity Hospitals Ahuja Medical CenterHyaline casts [#/area] in Urine sediment by Automated countOrdered By: Rob Almazan on 53-55-4486Hdvwchl casts Auto (Urine sed) [#/Area]None [LPF]0-8[facility] CenterKetones [Presence] in Urine by Test stripOrdered By: Rob Almazan on 47-25-1705Tmnhreh Ql (U)NegativeNormLicking Memorial HospitalComment on above:Order Comment: Name Collection Type:: Zapien CatheterPerformed By: #### ADDONUAPLUS, CUU #### [facility] [address] [place] [address] USALeukocyte clumps [Presence] in Urine by AutomatedOrdered By: Rob Almazan on 00-64-0954Esdlbwlzu clumps Auto Ql (U)Rare [LPF]High None SeenMercy Health Springfield Regional Medical CenterLeukocyte esterase [Presence] in Urine by Test stripOrdered By: Rob Almazan on 33-56-2265Xcsodpdmq esterase Test strip Ql (U)4+HighNegUniversity Hospitals Ahuja Medical CenterComment on above:Order Comment: Name Collection Type:: Zapien CatheterPerformed By: #### HETALJOHN, CUU #### [facility] [address] [place] [id number] USALeukocytes [#/area] in Urine sediment by Automated count Ordered By: Rob Almazan on 15-34-4564GVP Auto (Urine sed) [#/Area]20-49 [HPF]High0-4FTriHealth McCullough-Hyde Memorial HospitalMucus [Presence] in Urine by AutomatedOrdered By: Rob Almazan on 42-13-6909Glcih Auto Ql (U)Rare [LPF][facility] CenterNitrite Test strip Ql (U)Ordered By: Rob Almazan on 20-31-9098Mwnnkar Ql (U)NegativeNegUniversity Hospitals Ahuja Medical CenterProtein Test strip (U) [Mass/Vol]Ordered By: Rob Almazan on 67-64-6098Messlxk (U) [Mass/Vol]Trace mg/dLHighNegGalion Community Hospitalpecific gravity Test strip (U) [Rel density]Ordered By: Rob Almazan on 74-65-4771Okaofetz gravity (U) [Rel density]1.022 1.001-1.030[facility] Medical CenterUrine Cultureon 54-06-5034Srtznvtf identified Cx Nom (U)ORGANISM: Enterococcus faecalis (O:ENTFAC) [place] Count 30,000 Aerobic RITESH Charge (PCMIC38) SUSCEPTIBILITY [...] RESISTANT TO ALL B-LACTAM DRUGS. PERFORMED BY: [place] [address] PATHOLOGIST PROCUREMENT ASSISTANT OREN OWEN M.D.[facility] Physician GroupComment on above:Performed By: #### BLAKE CUU #### [place] [address] USAUrine appearanceOrdered By: Rob Almazan on 62-63-2685Mkkbwbzkdn (U)ClearNormalClearMercy Health Springfield Regional Medical CenterComment on above:Order Comment: Name Collection Type:: Zapien CatheterPerformed By: #### BLAKE CUU #### [place] [address] USAUrine culture routineOrdered By: Rob Almazan on 04-74-9366Tiqwfjll identified Cx Nom (U)Enterococcus faecalisAbnoCentervilleUrobilinogen Test strip (U) [Mass/Vol]Ordered By: Rob Almazan on 68-04-9211Sxypacfflfwb (U) [Mass/Vol]2 mg/dLSheltering Arms HospitalpH of Urine by Test stripOrdered By: Rob Almazan on 06-07-7544yK (U)5.5 [pH]Normal5.0-9.0[facility] Medical CenterComment on above:Order Comment: Name Collection Type:: Zapien Catheter Performed By: #### MAISHA LOZANOU #### [place] [address] USAAutomated basophil %Ordered By: W Flynn on 01-21-2024 Basophils/100 WBC (Bld)0.5 %Normal.[facility] Medical CenterComment on above:Performed By: #### PTT, PT #### [place] [address] USAAutomated basophil countOrdered By: W Flynn on 86-42-2162Reqaghkpd (Bld) [#/Vol]0.0 10*3/uLNormal0.0-0.2FTriHealth McCullough-Hyde Memorial HospitalComment on above:Result Comment: PERFORMED BY: [place] [address] PATHOLOGIST PROCUREMENT ASSISTANT OREN OWEN M.D.Performed By: #### PTT, PT #### [place] [address] USAAutomated blood monocyte countOrdered By: W Flynn on 62-88-3930Oaqmrfggi (Bld) [#/Vol]1.4 10*3/uLHigh0.0-0.8[facility] Medical CenterComment on above:Performed By: #### PTT, PT #### [place] [address] USAAutomated eosinophil %Ordered By: W Flynn on 01-21-2024 Eosinophils/100 WBC (Bld)3.6 %Normal.[facility] Medical CenterComment on above:Performed By: #### PTT, PT #### [place] [address] USAAutomated eosinophil countOrdered By: W Flynn on 85-21-7964Uccnlljbhzm (Bld) [#/Vol]0.3 10*3/uLNormal0.0-0.45[facility] Medical CenterComment on above:Performed By: #### PTT, PT #### [place] [address] USAAutomated monocyte %Ordered By: W Flynn on 01-21-2024 Monocytes/100 WBC (Bld)16.0 %Normal.[facility] Medical CenterComment on above:Performed By: #### PTT, PT #### [place] [address] USAAutomated neutrophil %Ordered By: Nas Pruett on 01-21-2024 Neutrophils/100 WBC (Bld)64.3 %Normal.[facility] Medical CenterComment on above:Performed By: #### PTT, PT #### [place] [address] USABasic Metabolic Panelon 53-23-3725Uqnwenllmb Clr Calc Dqwzkvft78.56NormHCA Florida [facility] Hospital Physician GroupComment on above:Result Comment: PERFORMED BY: [place] [address] PATHOLOGIST PROCUREMENT ASSISTANT OREN OWEN M.D.Performed By: #### PTT, PT #### [place] [address] USAGFR/1.73 sq M.predicted MDRD (S/P/Bld) [Vol rate/Area] 43.613 mL/min/{1.73_m2}NormalThe [facility] Physician [facility] Hospital Of MeridianComment on above: Performed By: #### PTT, PT #### [place] [address] USACalcium [Mass/volume] in Serum or PlasmaOrdered By: Nas Pruett on 42-43-5382Jiusftd [Mass/Vol]8.5 mg/dLLow8.6-10.3FTriHealth McCullough-Hyde Memorial HospitalComment on above:Performed By: #### PTT, PT #### [place] [address] USACarbon dioxide, total [Moles/volume] in Serum or Plasma Ordered By: Nas Pruett on 57-94-3449ZL3 [Moles/Vol]20.1 mmol/LLow21.0-31.0 [facility] Medical CenterComment on above:Performed By: #### PTT, PT #### [place] [address] USAChloride [Moles/volume] in Serum or PlasmaOrdered By: Nas Pruett on 17-41-9885Rjbifzel [Moles/Vol]107 mmol/PMpplop20-708JrhtmnzleMercy Health Springfield Regional Medical CenterComment on above:Performed By: #### PTT, PT #### [facility] [address] [place] [address] USAComplete Blood Count Auto Diffon 97-01-2474Otnq Corpuscular HGB Conc32.9 g/zVUyrgqh60.5-35.6The [facility] Physician GroupComment on above:Performed By: #### PTT, PT #### [facility] [address] [place] [address] USANRBC%0.1 /100{WBC}Normal0-0.5The [facility]ician Group Comment on above:Performed By: #### PTT, PT #### [place] [address] USACreatinine [Mass/volume] in Serum or PlasmaOrdered By: Nas Pruett on 06-18-1087Skmzyyeybv [Mass/Vol]1.59 mg/dLHigh0.70-1.30[facility] Medical CenterComment on above:Performed By: #### PTT, PT #### [place] [address] USAErythrocyte distribution width [Ratio] by Automated count Ordered By: Nas Pruett on 64-87-4367Tgcztewtixa distribution width (RBC) [Ratio] 15.6 %High12.0-14.8[facility] Medical CenterComment on above:Performed By: #### PTT, PT #### [place] [address] USAErythrocytes [#/volume] in Blood by Automated countOrdered By: Nas Pruett on 17-02-3767UFV (Bld) [#/Vol]4.33 10*6/uLNormal3.90-5.60 [facility] Medical CenterComment on above:Performed By: #### PTT, PT #### [place] [address] USAGlucose [Mass/volume] in Serum or PlasmaOrdered By: Nas Pruett on 42-04-8618Oeeooxp [Mass/Vol]121 mg/hQSqvf65-977IlvaejypcMercy Health Springfield Regional Medical CenterComment on above:ADA recommended reference rangeRandom Glucose Reference Range is dependent on time and content of last meal. Glucose of more than 200 mg/dL in a nonstressed, ambulatory subject supports the diagnosisof Diabetes Mellitus.Result Comment: Random Glucose Reference Range is dependent on time and content of last meal. Glucose of more than 200 mg/dL in a nonstressed, ambulatory subject supports the diagnosis of Diabetes Mellitus. ADA recommended reference rangePerformed By: #### PTT, PT #### [place] [address] USAHematocrit [Volume Fraction] of Blood by Automated count Ordered By: Nas Pruett on 63-15-4128Yhcrcsqumk (Bld) [Volume fraction]37.1 %Low 38.8-50.0[facility] Medical CenterComment on above:Performed By: #### PTT, PT #### [place] [address] USAHemoglobin [Mass/volume] in BloodOrdered By: Nas Pruett on 72-74-5966Bgwxchaidl (Bld) [Mass/Vol]12.2 g/dLLow13.0-17.0[facility] Medical CenterComment on above:Performed By: #### PTT, PT #### [place] [address] USALeukocytes [#/volume] corrected for nucleated erythrocytes in Blood by Automated counOrdered By: Nas Pruett on 18-08-0409BHU corrected for nucl RBC Auto (Bld) [#/Vol]8.8 10*3/uL4.1-10.5FTriHealth McCull[facility] Hospital Leukocytes [#/volume] in Blood by Automated countOrdered By: Nas Pruett on 44-98-6780IOF (Bld) [#/Vol]8.8 10*3/uLNormal4.1-10.5FTriHealth McCullough-Hyde Memorial HospitalComment on above:Performed By: #### PTT, PT #### [facility] [address] [place] [address] USALymphocytes [#/volume] in Blood by Automated countOrdered By: Nas Pruett on 62-07-9864Iaonmglfald (Bld) [#/Vol]1.4 10*3/uLNormal1.00-4.8 [facility] Medical CenterComment on above:Performed By: #### PTT, PT #### [facility] [address] [place] [address] USALymphocytes/100 leukocytes in Blood by Automated count Ordered By: Nas Pruett on 42-28-7180Mhbtkolluhz/100 WBC (Bld)15.6 %Normal. [facility] Medical CenterComment on above:Performed By: #### PTT, PT #### [place] [address] USAH [Entitic mass] by Automated countOrdered By: Nas Pruett on 59-77-9446IOR (RBC) [Entitic mass]28.1 hmDhobzk80.5-35.2FTriHealth McCullough-Hyde Memorial HospitalComment on above:Performed By: #### PTT, PT #### [address]HC Auto (RBC) [Mass/Vol]Ordered By: Nas Pruett on 61-35-2180NYXC (RBC) [Mass/Vol]32.9 g/dL32.5-35.6FTriHealth McCullough-Hyde Memorial HospitalMCV [Entitic volume] by Automated countOrdered By: Nas Pruett on 01-21-2024 MCV (RBC) [Entitic vol]85.6 cGBovxlp75.5-101[facility] Comment on above:Performed By: #### PTT, PT #### [place] [address] USANeutrophils [#/volume] in Blood by Automated countOrdered By: Nas Pruett on 53-15-6926Omevvglsodh (Bld) [#/Vol]5.7 10*3/uLNormal1.8-7.7 [facility] Medical CenterComment on above:Performed By: #### PTT, PT #### [facility] [address] [place] [address] USANo Panel InformationOrdered By: Nas Pruett on 01-21-2024 Estimated GFR (CKD-EPI)43.613 mL/MinMercy Health Springfield Regional Medical CenterPharmacy Creatinine Clearance (Chem46.56[facility] Medical CenterNucleated erythrocytes [Presence] in Blood by Automated countOrdered By: Nas Pruett on 72-27-4309Pfwhqpslu RBC Auto Ql (Bld)0.1 /100{WBC}0-0.5FTriHealth McCullough-Hyde Memorial HospitalPlatelet mean volume [Entitic volume] in Blood by Automated count Ordered By: Nas Pruett on 53-50-2808Tntunziu mean volume (Bld) [Entitic vol]8.4 fLNormal6.6-10.1FTriHealth McCullough-Hyde Memorial HospitalComment on above:Performed By: #### PTT, PT #### [facility] [address] [place] [address] USAPlatelets [#/volume] in Blood by Automated countOrdered By: Nas Pruett on 59-05-8492Mkrhwwgpt (Bld) [#/Vol]221 10*3/aZFfsbdv794-651 [facility] CenterComment on above:Performed By: #### PTT, PT #### [facility] [address] [place] [address] USAPotassium [Moles/volume] in Serum or PlasmaOrdered By: Nas Pruett on 87-74-6472Vqzyxcuee [Moles/Vol]3.9 mmol/LNormal3.5-5.1FTriHealth McCullough-Hyde Memorial HospitalComment on above:Performed By: #### PTT, PT #### [facility] [address] [place] [address] USASerum or plasma anion gap determinationOrdered By: Nas Pruett on 42-48-0789Krtan gap [Moles/Vol]13.8 mmol/LNormal6.0-15.0[facility] Medical CenterComment on above:Performed By: #### PTT, PT #### [facility] [address] [place] [address] USASodium [Moles/volume] in Serum or PlasmaOrdered By: Nas Pruett on 37-62-6765Cfajyv [Moles/Vol]137 mmol/WOapxta550-945SindpcuxqMercy Health Springfield Regional Medical CenterComment on above:Performed By: #### PTT, PT #### [facility] [address] [place] [address] USAUrea nitrogen [Mass/volume] in Serum or PlasmaOrdered By: Nas Pruett on 24-63-0688Ithx nitrogen [Mass/Vol]35 mg/dLHigh7-25[facility] CenterComment on above:Performed By: #### PTT, PT #### [facility] [address] [place] [address] USABasic Metabolic Panelon 60-55-4417Rqdar gap [Moles/Vol] 12.0 mmol/LNormal6.0-15.0The [facility] Physician GroupComment on above:Performed By: #### ADDONUAPLUS, CUU #### [facility] [address] [place] [address] USACalcium [Mass/Vol]8.4 mg/dLLow8.6-10.3The [facility] Physician GroupComment on above:Performed By: #### ADDONUAPLUS, CUU #### [place] [address] USAChloride [Moles/Vol]107 mmol/QGzxilu24-507Spz [facility] Physician GroupComment on above:Performed By: #### ADDONUAPLUS, CUU #### [facility] [address] [place] [address] USACO2 [Moles/Vol]19.5 mmol/LLow21.0-31.0The [facility] Physician GroupComment on above:Performed By: #### ADDONUAPLUS, CUU #### [facility] [address] [place] [address] USACreatinine [Mass/Vol]1.50 mg/dLHigh0.70-1.30The [facility] Physician GroupComment on above:Performed By: #### ADDONUAPLUS, CUU #### [facility] [address] [place] [address] USACreatinine Clr Calc Eiftxnue49.40NormHCA Florida [facility] Hospital Physician GroupComment on above:Result Comment: PERFORMED BY: [place] [address] PATHOLOGIST PROCUREMENT ASSISTANT OREN OWEN M.D.Performed By: #### BLAKE, CUU #### [place] [address] USAGFR/1.73 sq M.predicted MDRD (S/P/Bld) [Vol rate/Area] 46.772 mL/min/{1.73_m2}NormalThe [facility] Physician GroupComment on above: Performed By: #### BLAKE, CUU #### [place] [address] USAGlucose [Mass/Vol]136 mg/qLUqmu67-393Qpy [facility] Physician GroupComment on above:Result Comment: Random Glucose Reference Range is dependent on time and content of last meal. Glucose of more than 200 mg/dL in a nonstressed, ambulatory subject supports the diagnosis of Diabetes Mellitus. ADA recommended reference rangePerformed By: #### BLAKE, CUU #### [place] [address] USAPotassium [Moles/Vol]3.5 mmol/LNormal3.5-5.1The [facility] Physician GroupComment on above:Performed By: #### BLAKE, CUU #### [place] [address] USASodium [Moles/Vol]135 mmol/EBwk396-806Pdm [facility] Physician GroupComment on above:Performed By: #### BLAKE, CUU #### [place] [address] USAUrea nitrogen [Mass/Vol]32 mg/dLHigh7-25The [facility] Physician GroupComment on above:Performed By: #### JESUSPLUS, CUU #### [place] [address] USAComplete Blood Count Auto Diffon 43-28-5242Gjqmyxuov (Bld) [#/Vol]0.0 10*3/uLNormal0.0-0.2The [facility] Physician GroupComment on above: Result Comment: PERFORMED BY: [place] [address] PATHOLOGIST PROCUREMENT ASSISTANT OREN OWEN M.D.Performed By: #### BLAKE, CUU #### [place] [address] USABasophils/100 WBC (Bld)0.3 %Normal.The [facility] Physician GroupComment on above:Performed By: #### BLAKE, CUU #### [place] [address] USAEosinophils (Bld) [#/Vol]0.2 10*3/uLNormal0.0-0.45The [facility] Physician GroupComment on above:Performed By: #### BLAKE CUU #### [place] [address] USAEosinophils/100 WBC (Bld)1.7 %Normal.The [facility] Physician GroupComment on above:Performed By: #### BLAKE CUU #### [place] [address] USAErythrocyte distribution width (RBC) [Ratio]15.4 %High 12.0-14.8The [facility] Physician GroupComment on above:Performed By: #### BLAKE, CUU #### [place] [address] USAHematocrit (Bld) [Volume fraction]37.6 %Low38.8-50.0The [facility] Physician GroupComment on above:Performed By: #### BLAKE, CUU #### [place] [address] USAHemoglobin (Bld) [Mass/Vol]12.5 g/dLLow13.0-17.0The [facility] Physician GroupComment on above:Performed By: #### BLAKE, CUU #### [place] [id number] USALymphocytes (Bld) [#/Vol]1.1 10*3/uLNormal1.00-4.8The [facility] Physician GroupComment on above:Performed By: #### BLAKE, CUU #### [place] [address] USALymphocytes/100 WBC (Bld)11.8 %Normal.The [facility] Physician GroupComment on above:Performed By: #### BLAKE, CUU #### [address] Levy StreetMCH (RBC) [Entitic mass]28.5 tmCpfjjt35.5-35.2The [facility] Physician GroupComment on above:Performed By: #### BLAKE, CUU #### [place] [address] USAV (RBC) [Entitic vol]85.9 aJQwejov94.5-101The [facility] Physician GroupComment on above:Performed By: #### BLAKE, CUU #### [place] [address] USAMean Corpuscular HGB Conc33.2 g/hLAzvnbd79.5-35.6The [facility] Physician GroupComment on above:Performed By: #### BLAKE, CUU #### [place] [address] USAMonocytes (Bld) [#/Vol]1.4 10*3/uLHigh0.0-0.8The [facility] Physician GroupComment on above:Performed By: #### ADDONUAPLUS, CUU #### [place] [address] USAMonocytes/100 WBC (Bld)14.3 %Normal.The [facility] Physician GroupComment on above:Performed By: #### ADDONUAPLUS, CUU #### [place] [address] USANeutrophils (Bld) [#/Vol]6.8 10*3/uLNormal1.8-7.7The [facility] Physician GroupComment on above:Performed By: #### BLAKE CUU #### [facility] [address] [place] [address] USANeutrophils/100 WBC (Bld)71.9 %Normal.The [facility] Physician GroupComment on above:Performed By: #### BLAKE CUU #### [facility] [address] [place] [address] USANRBC%0.0 /100{WBC}Normal0-0.5The [facility] Comment on above:Performed By: #### BLAKE CUU #### [facility] [address] [place] [address] USAPlatelet mean volume (Bld) [Entitic vol]8.3 fLNormal 6.6-10.1The [facility] Physician GroupComment on above:Performed By: #### BLAKE CUU #### [facility] [address] [place] [address] USAPlatelets (Bld) [#/Vol]202 10*3/wTHyhtby047-246Nhv [facility] Physician GroupComment on above:Performed By: #### BLAKE CUU #### [facility] [address] [place] [address] USARBC (Bld) [#/Vol]4.38 10*6/uLNormal3.90-5.60The [facility] Physician GroupComment on above:Performed By: #### BLAKE CUU #### [facility] [address] [place] [address] USAWBC (Bld) [#/Vol]9.5 10*3/uLNormal4.1-10.5The [facility] Physician GroupComment on above:Performed By: #### BLAKE, CUU #### [facility] [address] [place] [address] USAMagnesium [Mass/volume] in Serum or PlasmaOrdered By: Isaac Edwards on 45-98-8567Fkuycavgv [Mass/Vol]2.1 mg/dLNormal1.9-2.7 [facility] Medical CenterComment on above:Result Comment: PERFORMED BY: [place] [address] PATHOLOGIST PROCUREMENT ASSISTANT OREN OWEN M.D.Performed By: #### BLAKE, CUU #### [place] [address] USABasic Metabolic Panelon 65-06-6612Cjxrb gap [Moles/Vol] 11.7 mmol/LNormal6.0-15.0The [facility] Physician GroupComment on above:Performed By: #### [facility] #### [place] [address] USACalcium [Mass/Vol]8.5 mg/dLLow8.6-10.3The [facility] Physician GroupComment on above:Performed By: #### [facility] #### [place] [address] USAChloride [Moles/Vol]106 mmol/YTpuobb83-688Hvs [facility] Physician GroupComment on above:Performed By: #### [facility] #### [place] [address] USACO2 [Moles/Vol]19.9 mmol/LLow21.0-31.0The [facility] Physician GroupComment on above:Performed By: #### [facility] #### [place] [address] USACreatinine [Mass/Vol]1.62 mg/dLHigh0.70-1.30The [facility] Physician GroupComment on above:Performed By: #### [facility] #### [place] [address] USACreatinine Clr Calc Bvjuzawu95.28NormalThe [facility] Physician GroupComment on above:Result Comment: PERFORMED BY: [place] [address] PATHOLOGIST PROCUREMENT ASSISTANT OREN OWEN M.D.Performed By: #### [facility] #### [facility] [address] [place] [address] USAGFR/1.73 sq M.predicted MDRD (S/P/Bld) [Vol rate/Area] 42.646 mL/min/{1.73_m2}NormalThe [facility] Physician GroupComment on above: Performed By: #### [facility] #### [facility] [address] [place] [address] USAGlucose [Mass/Vol]145 mg/lAIyau51-563Jdx [facility] Physician GroupComment on above:Result Comment: Random Glucose Reference Range is dependent on time and content of last meal. Glucose of more than 200 mg/dL in a nonstressed, ambulatory subject supports the diagnosis of Diabetes Mellitus. ADA recommended reference rangePerformed By: #### [facility] #### [facility] [address] [place] [address] USAPotassium [Moles/Vol]3.6 mmol/LNormal3.5-5.1The [facility] Physician GroupComment on above:Performed By: #### [facility] #### [place] [address] USASodium [Moles/Vol]134 mmol/HUrf370-929Fyz [facility] Physician GroupComment on above:Performed By: #### [facility] #### [facility] [address] [place] [address] USAUrea nitrogen [Mass/Vol]32 mg/dLHigh7-25The [facility] Physician GroupComment on above:Performed By: #### [facility] #### [facility] [address] [place] [address] USAComplete Blood Count Auto Diffon 80-18-7483Znnjvgwdy (Bld) [#/Vol]0.0 10*3/uLNormal0.0-0.2The [facility] Physician GroupComment on above: Result Comment: PERFORMED BY: [address] [place] [address] PATHOLOGIST PROCUREMENT ASSISTANT OREN OWEN M.D.Performed By: #### ADDMOEUAPLUS, CUU #### [place] [address] USABasophils/100 WBC (Bld)0.4 %Normal.The [facility] Physician GroupComment on above:Performed By: #### HETALUAPLUS, CUU #### [place] [address] USAEosinophils (Bld) [#/Vol]0.0 10*3/uLNormal0.0-0.45The [facility] Physician GroupComment on above:Performed By: #### BLAKE, CUU #### [place] [address] USAEosinophils/100 WBC (Bld)0.4 %Normal.The [facility] Physician GroupComment on above:Performed By: #### BLAKE, CUU #### [place] [address] USAErythrocyte distribution width (RBC) [Ratio]15.6 %High 12.0-14.8The [facility] Physician GroupComment on above:Performed By: #### BLAKE CUU #### [place] [address] USAHematocrit (Bld) [Volume fraction]37.1 %Low38.8-50.0The [facility] Physician GroupComment on above:Performed By: #### BLAKE, CUU #### [place] [address] USAHemoglobin (Bld) [Mass/Vol]12.3 g/dLLow13.0-17.0The [facility] Physician GroupComment on above:Performed By: #### HETALUAPLUS, CUU #### [place] [address] USALymphocytes (Bld) [#/Vol]1.0 10*3/uLNormal1.00-4.8The [facility] Physician GroupComment on above:Performed By: #### JESUSPLUS, CUU #### [place] [address] USALymphocytes/100 WBC (Bld)8.8 %Normal.The [facility] Physician GroupComment on above:Performed By: #### ADDONUAPLUS, CUU #### [address]H (RBC) [Entitic mass]28.6 srRmrcny85.5-35.2The [facility] Physician GroupComment on above:Performed By: #### ADDONUAPLUS, CUU #### [place] [address] USAV (RBC) [Entitic vol]86.5 uODhrmqk02.5-101The [facility] Physician GroupComment on above:Performed By: #### ADDONUAPLUS, CUU #### [place] [address] USAMean Corpuscular HGB Conc33.0 g/mFBervnh05.5-35.6The [facility] Physician GroupComment on above:Performed By: #### ADDONUAPLUS, CUU #### [place] [address] USAMonocytes (Bld) [#/Vol]1.3 10*3/uLHigh0.0-0.8The [facility] Physician GroupComment on above:Performed By: #### ADDONUAPLUS, CUU #### [place] [address] USAMonocytes/100 WBC (Bld)11.9 %Normal.The [facility] Physician GroupComment on above:Performed By: #### ADDONUAPLUS, CUU #### [place] [address] USANeutrophils (Bld) [#/Vol]8.6 10*3/uLHigh1.8-7.7The [facility] Physician GroupComment on above:Performed By: #### ADDONUAPLUS, CUU #### [place] [address] USANeutrophils/100 WBC (Bld)78.5 %Normal.The [facility] Physician GroupComment on above:Performed By: #### BLAKE CUU #### [facility] [address] [place] [address] USANRBC%0.1 /100{WBC}Normal0-0.5The [facility] Comment on above:Performed By: #### BLAKE CUU #### [place] [address] USAPlatelet mean volume (Bld) [Entitic vol]8.9 fLNormal 6.6-10.1The [facility] Physician GroupComment on above:Performed By: #### BLAKE CUU #### [place] [address] USAPlatelets (Bld) [#/Vol]165 10*3/sZLfllmo608-584Vwx [facility] Physician GroupComment on above:Performed By: #### BLAKE CUU #### [place] [address] USARBC (Bld) [#/Vol]4.30 10*6/uLNormal3.90-5.60The [facility] Physician GroupComment on above:Performed By: #### BLAKE CUU #### [place] [address] USAWBC (Bld) [#/Vol]11.0 10*3/uLHigh4.1-10.5The [facility] Physician GroupComment on above:Performed By: #### BLAKE CUU #### [place] [address] USAECG 12 lead ECGon 61-05-1152QAE 12 lead ECGSUBUR[facility] [place] [address] [place] [address] Electrocardiograph Report Signed Patient: Alex Anderson MR#: [id number] [birth year] : 1945 Acct:[id number] Age/Sex: 78 / M ADM Date: 01/16/24 Loc: Room: [address] [place] [address] Type: ADM IN Attending Dr: Nas Pruett [...] change was found Confirmed by Misael Campbell ([id number]) on 01/20/2024 10:18:21 PM Referred By: Electronically Signed By: Misael Campbell Transcribed By: MUS Signed By Misael Campbell MD 01/20/24 2218[facility] MeridianBasic Metabolic Panelon 08-49-8576Idgdp gap [Moles/Vol]11.5 mmol/LNormal6.0-15.0The [facility] Physician GroupComment on above:Performed By: #### CBC, BMP #### [facility] [address] [place] [address] USACalcium [Mass/Vol]8.7 mg/dLNormal8.6-10.3The [facility] Physician GroupComment on above:Performed By: #### CBC, BMP #### [facility] [address] [place] [address] USAChloride [Moles/Vol]107 mmol/QLaexxc97-170Aah [facility] Physician GroupComment on above:Performed By: #### CBC, BMP #### [facility] [address] [place], [place] [id number] USACO2 [Moles/Vol]21.2 mmol/CNziwgj18.0-31.0The [facility] Physician GroupComment on above:Performed By: #### CBC, BMP #### [facility] [address] [place] [address] USACreatinine [Mass/Vol]1.59 mg/dLHigh0.70-1.30The [facility] Physician GroupComment on above:Performed By: #### CBC, BMP #### [place] [address] USACreatinine Clr Calc Cxyqwvxq79.65NormalThe [facility]arr[facility] Physician GroupComment on above:Result Comment: PERFORMED BY: [place] [address] PATHOLOGIST PROCUREMENT ASSISTANT OREN OWEN M.D.Performed By: #### CBC, BMP #### [place] [address] USAGFR/1.73 sq M.predicted MDRD (S/P/Bld) [Vol rate/Area] 43.613 mL/min/{1.73_m2}NormalThe [facility] Physician GroupComment on above: Performed By: #### CBC, BMP #### [place] [address] USAGlucose [Mass/Vol]125 mg/hBCpjs14-459Nop [facility]lands Physician GroupComment on above:Result Comment: Random Glucose Reference Range is dependent on time and content of last meal. Glucose of more than 200 mg/dL in a nonstressed, ambulatory subject supports the diagnosis of Diabetes Mellitus. ADA recommended reference rangePerformed By: #### CBC, BMP #### [place] [address] USAPotassium [Moles/Vol]3.7 mmol/LNormal3.5-5.1The [facility] Physician GroupComment on above:Performed By: #### CBC, BMP #### [place] [address] USASodium [Moles/Vol]136 mmol/WPobifv748-680Slq [facility] Physician GroupComment on above:Performed By: #### CBC, BMP #### [place] [address] USAUrea nitrogen [Mass/Vol]29 mg/dLHigh7-25The [facility] Physician GroupComment on above:Performed By: #### CBC, BMP #### [place] [address] USAComplete Blood Count Auto Diffon 22-01-2785Iriqrbcbp (Bld) [#/Vol]0.0 10*3/uLNormal0.0-0.2The [facility] Physician GroupComment on above: Result Comment: PERFORMED BY: [place] [address] PATHOLOGIST PROCUREMENT ASSISTANT OREN OWEN M.D.Performed By: #### CBC, BMP #### [place] [address] USABasophils/100 WBC (Bld)0.4 %Normal.The [facility] Physician GroupComment on above:Performed By: #### CBC, BMP #### [place] [address] USAEosinophils (Bld) [#/Vol]0.0 10*3/uLNormal0.0-0.45The [facility] Physician GroupComment on above:Performed By: #### CBC, BMP #### [place] [address] USAEosinophils/100 WBC (Bld)0.2 %Normal.The [facility] Physician GroupComment on above:Performed By: #### CBC, BMP #### [place] [address] USAErythrocyte distribution width (RBC) [Ratio]15.9 %High 12.0-14.8The [facility] Physician GroupComment on above:Performed By: #### CBC, BMP #### [place] [address] USAHematocrit (Bld) [Volume fraction]38.2 %Low38.8-50.0The [facility] Physician GroupComment on above:Performed By: #### CBC, BMP #### [place] [address] USAHemoglobin (Bld) [Mass/Vol]12.7 g/dLLow13.0-17.0The [facility] Physician GroupComment on above:Performed By: #### CBC, BMP #### [facility] [address] [place] [address] USALymphocytes (Bld) [#/Vol]1.4 10*3/uLNormal1.00-4.8The [facility] Physician GroupComment on above:Performed By: #### CBC, BMP #### [facility] [address] [place] [address] USALymphocytes/100 WBC (Bld)11.5 %Normal.The [facility] Physician GroupComment on above:Performed By: #### CBC, BMP #### [place] [address] USAMCH (RBC) [Entitic mass]28.5 vfPewwvh77.5-35.2The [facility] Physician GroupComment on above:Performed By: #### CBC, BMP #### [place] [address] USAMCV (RBC) [Entitic vol]85.4 fNMblobg20.5-101The [facility] Physician GroupComment on above:Performed By: #### CBC, BMP #### [place] [address] USAMean Corpuscular HGB Conc33.4 g/pYKjzczj98.5-35.6The [facility] Physician GroupComment on above:Performed By: #### CBC, BMP #### [place] [address] USAMonocytes (Bld) [#/Vol]1.5 10*3/uLHigh0.0-0.8The [facility] Physician GroupComment on above:Performed By: #### CBC, BMP #### [place] [id number] USAMonocytes/100 WBC (Bld)12.8 %Normal.The [facility] Physician GroupComment on above:Performed By: #### CBC, BMP #### [place] [address] USANeutrophils (Bld) [#/Vol]9.1 10*3/uLHigh1.8-7.7The [facility] Physician GroupComment on above:Performed By: #### CBC, BMP #### [facility] [address] [place] [address] USANeutrophils/100 WBC (Bld)75.1 %Normal.The [facility] Physician GroupComment on above:Performed By: #### CBC, BMP #### [facility] [address] [place] [address] USANRBC%0.0 /100{WBC}Normal0-0.5The [facility] Comment on above:Performed By: #### CBC, BMP #### [facility] [address] [place] [address] USAPlatelet mean volume (Bld) [Entitic vol]9.3 fLNormal 6.6-10.1The [facility] Physician GroupComment on above:Performed By: #### CBC, BMP #### [facility] [address] [place] [address] USAPlatelets (Bld) [#/Vol]131 10*3/rBIcg888-000Ons [facility] Physician GroupComment on above:Performed By: #### CBC, BMP #### [facility] [address] [place] [address] USARBC (Bld) [#/Vol]4.47 10*6/uLNormal3.90-5.60The [facility] Physician GroupComment on above:Performed By: #### CBC, BMP #### [facility] [address] [place] [address] USAWBC (Bld) [#/Vol]12.1 10*3/uLHigh4.1-10.5The [facility] Physician GroupComment on above:Performed By: #### CBC, BMP #### [facility] [address] [place] [address] USAECG 12 lead ECGon 60-97-6740CNV 12 lead ECGSUBURBAN [facility] [place] [address] [place] [address] Electrocardiograph Report Signed Patient: Alex Anderson MR#: [id number] 36 : 1945 Acct:[id number] Age/Sex: 78 / M ADM Date: 01/16/24 Loc: Room: [address] [place] [address] Type: ADM IN Attending Dr: Nas Pruett [...] Signed By Ana Castro MD 0 01/18/[address] [place] [address] Physician GroupBasic Metabolic Panelon 88-96-3235Lnbrz gap [Moles/Vol]12.3 mmol/LNormal6.0-15.0The [facility] Physician GroupComment on above:Performed By: #### BLAKE CUU #### [facility] [address] [place] [id number] USACalcium [Mass/Vol]8.9 mg/dLNormal8.6-10.3The [facility] Physician GroupComment on above:Performed By: #### BLAKE, CUU #### [facility] [address] [place] [address] USAChloride [Moles/Vol]105 mmol/BZcrltt15-675Pdi [facility] Physician GroupComment on above:Performed By: #### BLAKE, CUU #### [facility] [address] [place] [address] USACO2 [Moles/Vol]22.2 mmol/YCqmibm74.0-31.0The [facility] Physician GroupComment on above:Performed By: #### BLAKE, CUU #### [facility] [address] [place] [id number] USACreatinine [Mass/Vol]1.70 mg/dLHigh0.70-1.30The [facility] Physician GroupComment on above:Performed By: #### BLAKE, CUU #### [facility] [address] [place] [address] USACreatinine Clr Calc Fvgcovnq48.35NormalThe [facility] Physician GroupComment on above:Performed By: #### BLAKE, CUU #### [facility] [address] [place] [id number] USAGFR/1.73 sq M.predicted MDRD (S/P/Bld) [Vol rate/Area] 40.249 mL/min/{1.73_m2}NormalThe [facility] Physician GroupComment on above: Performed By: #### BLAKE CUU #### [facility] [address] [place] [address] USAGlucose [Mass/Vol]115 mg/oQEnwc43-931Tfr [facility] Physician GroupComment on above:Result Comment: Random Glucose Reference Range is dependent on time and content of last meal. Glucose of more than 200 mg/dL in a nonstressed, ambulatory subject supports the diagnosis of Diabetes Mellitus. ADA recommended reference rangePerformed By: #### BLAKE CUU #### [facility] [address] [place] [address] USAPotassium [Moles/Vol]4.5 mmol/LNormal3.5-5.1The [facility] Physician GroupComment on above:Performed By: #### BLAKE CUU #### [facility] [address] [place] [id number] USASodium [Moles/Vol]135 mmol/UYgn650-768Xfc [facility] Physician GroupComment on above:Performed By: #### BLAKE, CUU #### [facility] [address] [place] [address] USAUrea nitrogen [Mass/Vol]26 mg/dLHigh7-25The [facility] Physician GroupComment on above:Performed By: #### BLAKE CUU #### [facility] [address] [place] [address] USACapillary blood glucose measurement by glucometer (mass/volume)Ordered By: Nas Pruett on 92-54-7076Phywxkb [Mass/Vol]126 mg/dL NormalMercy Health Springfield Regional Medical CenterComment on above:Random Glucose Reference Range is dependent on time and content of last meal. Glucose of more than 200 mg/dL in a nonstressed, ambulatory subject supports the diagnosis of Diabetes Mellitus.Result Comment: Random Glucose Reference Range is dependent on time and content of last meal. Glucose of more than 200 mg/dL in a nonstressed, ambulatory subject supports the diagnosis of Diabetes Mellitus. PERFORMED BY: [place] [address] PATHOLOGIST PROCUREMENT ASSISTANT OREN OWEN M.D.Performed By: #### BLAKE CUU #### [place] [id number] USACholesterol [Mass/volume] in Serum or PlasmaOrdered By: Nas Pruett on 29-05-8459Fyhhnidihsi [Mass/Vol]74 mg/mQZtq601-653ErarvumprMercy Health Springfield Regional Medical CenterComment on above:Chol less than 200 mg/dl low riskChol 201-239 mg/dl borderline riskChol 240 mg/dl and greater high riskResult Comment: Chol less than 200 mg/dl low risk Chol 201-239 mg/dl borderline risk Chol 240 mg/dl and greater high riskPerformed By: #### BLAKE CUU #### [place] [id number] USACholesterol in LDL Calc [Mass/Vol]Ordered By: Nas Pruett on 35-80-6022Uuhqzwtqhgd in LDL [Mass/Vol]28 mg/dL0-100Mer[facility] Springfield Regional Medical CenterComment on above:LDL ATP III CLASSIFICATIONLDL less than 100 mg/dL OptimalLDL 100-129 mg/dL Near or above kjjhgrjPMA721-860 mg/dL Borderline highLDL 160-189 mg/dL HighLDL greater than 189 mg/dL Very highCholesterol in VLDL Calc [Mass/Vol]Ordered By: Nas Pruett on 50-91-8695Wmnwgzhnhld in VLDL [Mass/Vol]13 mg/dLMercy Health Springfield Regional Medical CenterDipstick and Microscopicon 93-22-2393Egvizivtcw (U)CloudyCritically abnormalClearThe [facility]us Physician GroupComment on above:Order Comment: Name Collection Type:: Zapien Catheter Performed By: #### ADDONUAPLUS, CUU #### [facility] [address] [place], [place] [address] USABacteria,Urine2+HighNone SeenThe [facility]ician Group Comment on above:Order Comment: Name Collection Type:: Zapien CatheterPerformed By: #### ADDONUAPLUS, CUU #### [place] [address] USABilirubin,UrineNegativeNormalNegativeAdventhealth Palm Coast Parkway Physician GroupComment on above:Order Comment: Name Collection Type:: Zapien CatheterPerformed By: #### ADDONUAPLUS, CUU #### [address] [address] USAColor (U)Light-YellowNormalYellowAdventhealth Palm Coast Parkway Physician GroupComment on above:Order Comment: Name Collection Type:: Zapien Catheter Performed By: #### ADDONUAPLUS, CUU #### [address] [address] USAGlucose Ql (U)NormalNormalNormalThe [facility] Physician GroupComment on above:Order Comment: Name Collection Type:: Zapien Catheter Performed By: #### ADDONUAPLUS, CUU #### [address] [address] USAHyaline Casts,UrineNoneNormal0-8The [facility] Physician GroupComment on above:Order Comment: Name Collection Type:: Zapien Catheter Performed By: #### ADDONUAPLUS, CUU #### [address] [address] USAKetones Ql (U)NegativeNormalNegativeAdventhealth Palm Coast Parkway Physician GroupComment on above:Order Comment: Name Collection Type:: Zapien CatheterPerformed By: #### ADDONUAPLUS, CUU #### [place] [address] USALeukocyte esterase Test strip Ql (U)3+HighNegativeThe [facility] Physician GroupComment on above:Order Comment: Name Collection Type:: Zapien CatheterPerformed By: #### ADDONRALFPLUS, CUU #### [place] [address] USAMucus,UrineRareNormalThe [facility] Physician GroupComment on above:Order Comment: Name Collection Type:: Zapien CatheterResult Comment: PERFORMED BY: [place] [address] PATHOLOGIST PROCUREMENT ASSISTANT OREN OWEN M.D.Performed By: #### ADDAYSHA, CUU #### [place] [address] USANitrite,UrineNegativeNormalNegativeThe [facility] Physician GroupComment on above:Order Comment: Name Collection Type:: Zapien Catheter Performed By: #### ADDONUAPLUS, CUU #### [place] [address] USAOccult Blood,UrineTraceHighNegativeThe [facility] Physician GroupComment on above:Order Comment: Name Collection Type:: Zapien Catheter Result Comment: PERFORMED BY: [place] [address] PATHOLOGIST PROCUREMENT ASSISTANT OREN OWEN M.D.Performed By: #### ADDONJOHN, CUU #### [place] [id number] USApH (U)6.0 [pH]Normal5.0-9.0The [facility] Comment on above:Order Comment: Name Collection Type:: Zapien CatheterPerformed By: #### ADDONUAPLUS, CUU #### [place] [address] USAProtein,UrineTraceHighNegativeThe [facility] Physician GroupComment on above:Order Comment: Name Collection Type:: Zapien Catheter Performed By: #### ADDONUAPLUS, CUU #### [place] [address] [place] [address] USARBC,Oneiq7-4Qjbdki7-5Ipv [facility] Physician GroupComment on above:Order Comment: Name Collection Type:: Zapien CatheterPerformed By: #### ADDONUAPLUS, CUU #### [facility] [address] [place] [address] USASpecificy [place],Urine1.791Gtyjds9.001-1.030The [facility] Physician GroupComment on above:Order Comment: Name Collection Type:: Zapien CatheterPerformed By: #### ADDONUAPLUS, CUU #### [facility] [address] [place] [address] USASquamous Epithelial Cell,Gjkpu2-5Jyclhn2-2Loo [facility] Physician GroupComment on above:Order Comment: Name Collection Type:: Zapien CatheterPerformed By: #### ADDONUAPLUS, CUU #### [facility] [address] [place] [address] USAUrobilinogen,UrineNormalNormalNormalThe [facility] Physician GroupComment on above:Order Comment: Name Collection Type:: Zapien CatheterPerformed By: #### ADDONUAPLUS, CUU #### [facility] [address] [place] [address] USAWBC,Bhvow65-89Sgnp9-3Kwx [facility] Physician GroupComment on above:Order Comment: Name Collection Type:: Zapien CatheterPerformed By: #### ADDONUAPLUS, CUU #### [facility] [address] [place], [place] [address] USAECG 12 lead ECGon 11-23-0506WVO 12 lead ECGSUBURBAN [facility] [place] [address] [place] [address] Electrocardiograph Report Signed Patient: Alex Anderson MR#: [id number] 36 : 1945 Acct:[id number] Age/Sex: 78 / M ADM Date: 01/16/24 Loc: Room: [address] [place] [address] Type: ADM IN Attending Dr: Nas Pruett DO Ordering Provider: Nas Pruett DO Date of Service: 08/ ECG/ECG 12 lead ECG: Post Angioplasty Procedure [...] infarct present Confirmed by ANA CASTRO MD ([facility]) on 01/17/2024 9:52:42 AM Referred By: Electronically Signed By: ANA CASTRO MD Transcribed By: MUS Signed By Ana Castro MD 0 01/17/[address] [place] [address] echo transthoracicon 64-58-5963ZMX echo transthoracicSUBURBAN COMM[facility]ITY [facility] [place] [address] [place] [address] Echocardiogram Signed Patient: Alex Anderson MR#: [id number] 36 : 1945 Acct:[id number] Age/Sex: 78 / M ADM Date: 01/16/24 Loc: Room: [address] [place] [address] Type: ADM IN Attending Dr: Nas Pruett DO Ordering Provider: Nas Pruett DO Date of Service: 01/17/24 [facility] echo transthoracic: Ant STEMI Copies to: MD [...] LV V1 VTI: 19.1 cm Transcribed By: SCV Performed At: 01/17/24 1045 Signed By: Ana Castro MD 01/17/[address] [place] [address] Physician GroupGlucose Poct Glucometerson 51-39-4059Bnqqcme [Mass/Vol]115 mg/dLNoMission Hospital McDowell Physician GroupComment on above:Result Comment: Random Glucose Reference Range is dependent on time and content of last meal. Glucose of more than 200 mg/dL in a nonstressed, ambulatory subject supports the diagnosis of Diabetes Mellitus. PERFORMED BY: [place] [address] PATHOLOGIST PROCUREMENT ASSISTANT OREN OWEN M.D.Performed By: #### PTT, PT #### [place] [address] USAGlucose [Mass/Vol]114 mg/dLNoMission Hospital McDowell Physician GroupComment on above:Result Comment: Random Glucose Reference Range is dependent on time and content of last meal. Glucose of more than 200 mg/dL in a nonstressed, ambulatory subject supports the diagnosis of Diabetes Mellitus. PERFORMED BY: [place] [address] PATHOLOGIST PROCUREMENT ASSISTANT OREN OWEN M.D.Performed By: #### ADDONUAPLUS, CUU #### [place] [address] USAGlucose [Mass/Vol]125 mg/dLNoMission Hospital McDowell Physician GroupComment on above:Result Comment: Random Glucose Reference Range is dependent on time and content of last meal. Glucose of more than 200 mg/dL in a nonstressed, ambulatory subject supports the diagnosis of Diabetes Mellitus. PERFORMED BY: [place] [address] PATHOLOGIST PROCUREMENT ASSISTANT OREN OWEN M.D.Performed By: #### PTT, PT #### [facility] [address] [place], [place] [id number] USALipid Panelon 96-89-9912YHG Cholesterol,Xtkbikstze50 mg/dL Normal0-100The [facility] Physician GroupComment on above:Result Comment: LDL ATP III CLASSIFICATION LDL less than 100 mg/dL Optimal LDL 100-129 mg/dL Near or above optimal LDL 130-159 mg/dL Borderline high LDL 160-189 mg/dL High LDL greater than 189 mg/dL Very highPerformed By: #### JESUSPLUS, CUU #### [facility] [address] [place] [id number] USATriglyceride w/Celwcb64 mg/dLNormal0-149The [facility] Physician GroupComment on above:Result Comment: TRIG ATP III CLASSIFICATION TRIG less than 150 mg/dL Normal TRIG 150-199 mg/dL Borderline high TRIG 200-500 mg/dL High TRIG greater than 500 mg/dL Very high Standard traceable to the Center for Disease Conrtrol and Prevention (CDC) test method.Performed By: #### JESUSPLUS, CUU #### [facility] [address] [place] [address] USAVLDL QXQDBXATYAE00 mg/dLNormalThe [facility] Physician GroupComment on above:Performed By: #### JESUSPLUS, CUU #### [facility] [address] [place] [id number] USAPlatelet adequacy [Presence] in Blood by Light microscopy Ordered By: Nas Pruett on 93-91-7535Fwuvbocjp LM Ql (Bld)DecreasedUniversity Hospitals Geauga Medical CenterPlatelet morphology finding [Identifier] in BloodOrdered By: Nas Pruett on 30-14-8692Swblgqll morphology finding Nom (Bld)NormalNormal [facility] Medical CenterRBC morphologyOrdered By: Nas Pruett on 82-34-0885ZUU morphology finding Nom (Bld)N/[facility] Scan and CBCon 40-72-3025Wskpezkfc (Bld) [#/Vol]0.1 10*3/uLNormal0.0-0.2The [facility] Physician GroupComment on above:Result Comment: PERFORMED BY: [place] [address] PATHOLOGIST PROCUREMENT ASSISTANT OREN OWEN M.D.Performed By: #### BLAKE, CUU #### [facility] [address] [place] [address] USABasophils/100 WBC (Bld)0.4 %Normal.The [facility] Physician GroupComment on above:Performed By: #### ADDONUAPLUS, CUU #### [place] [address] USAEosinophils (Bld) [#/Vol]0.0 10*3/uLNormal0.0-0.45The [facility] Physician GroupComment on above:Performed By: #### BLAKE, CUU #### [place] [address] USAEosinophils/100 WBC (Bld)0.0 %Normal.The [facility] Physician GroupComment on above:Performed By: #### BLAKE, CUU #### [place] [address] USAErythrocyte distribution width (RBC) [Ratio]15.8 %High 12.0-14.8The [facility] Physician GroupComment on above:Performed By: #### BLAKE CUU #### [place] [address] USAHematocrit (Bld) [Volume fraction]38.4 %Low38.8-50.0The [facility] Physician GroupComment on above:Performed By: #### BLAKE CUU #### [place] [address] USAHemoglobin (Bld) [Mass/Vol]12.7 g/dLLow13.0-17.0The [facility] Physician GroupComment on above:Performed By: #### BLAKE CUU #### [place] [address] USALymphocytes (Bld) [#/Vol]1.2 10*3/uLNormal1.00-4.8The [facility] Physician GroupComment on above:Performed By: #### BLAKE, CUU #### [place] [address] USALymphocytes/100 WBC (Bld)6.9 %Normal.The [facility] Physician GroupComment on above:Performed By: #### BLAKE, CUU #### [address] [address] USAMCH (RBC) [Entitic mass]28.4 ayUarktz29.5-35.2The [facility] Physician GroupComment on above:Performed By: #### BLAKE, CUU #### [address] (RBC) [Entitic vol]86.1 xRVrdfxg92.5-101The [facility] Physician GroupComment on above:Performed By: #### BLAKE, CUU #### [place] [address] USAMean Corpuscular HGB Conc33.0 g/lSVrlwxh15.5-35.6The [facility] Physician GroupComment on above:Performed By: #### BLAKE, CUU #### [place] [address] USAMonocytes (Bld) [#/Vol]2.8 10*3/uLHigh0.0-0.8The [facility] Physician GroupComment on above:Performed By: #### BLAKE, CUU #### [place] [address] USAMonocytes/100 WBC (Bld)15.6 %Normal.The [facility] Physician GroupComment on above:Performed By: #### BLAKE, CUU #### [place] [address] USANeutrophils (Bld) [#/Vol]13.6 10*3/uLHigh1.8-7.7The [facility] Physician GroupComment on above:Performed By: #### BLAKE, CUU #### [place] [address] USANeutrophils/100 WBC (Bld)77.1 %Normal.The [facility] Physician GroupComment on above:Performed By: #### JESUSPLUS, CUU #### [facility] [address] [place] [address] USANRBC%0.0 /100{WBC}Normal0-0.5[facility] Comment on above:Performed By: #### JESUSPLUS, CUU #### [place] [address] USAPlatelet EstimateDecreasedNormalNormHCA Florida Blake Hospital Physician GroupComment on above:Performed By: #### ADDZACPLUS, CUU #### [place] [address] USAPlatelet mean volume (Bld) [Entitic vol]9.0 fLNormal 6.6-10.1The [facility] Physician GroupComment on above:Performed By: #### OCTAVIOONRALFPLUS, CUU #### [place] [address] USAPlatelet MorphologyNormalNormalNormHCA Florida Blake Hospital Physician GroupComment on above:Result Comment: PERFORMED BY: [place] [address] PATHOLOGIST PROCUREMENT ASSISTANT OREN OWEN M.D.Performed By: #### BLAKE, CUU #### [place] [address] USAPlatelets (Bld) [#/Vol]135 10*3/gXJcl686-436Mms [facility] Physician GroupComment on above:Performed By: #### BLAKE, CUU #### [place] [address] USARBC (Bld) [#/Vol]4.46 10*6/uLNormal3.90-5.60The [facility] Physician GroupComment on above:Performed By: #### ADDONRALFPLUS, CUU #### [place] [address] USAWBC (Bld) [#/Vol]17.7 10*3/uLHigh4.1-10.5The [facility] Physician GroupComment on above:Performed By: #### ADDONUAPLUS, CUU #### [place] [address] USASerum or plasma high density lipoprotein (HDL) cholesterol measurementOrdered By: Nas Pruett on 29-55-1505Rziczdmsgkc in HDL [Mass/Vol]33 mg/iBVtryny65-87WpldwhpcgMercy Health Springfield Regional Medical CenterComment on above:HDL CHOL ATP- III CLASSIFICATION Cardiovascular RiskHDL > or equal to 60 mg/dL LOWHDL < 40 mg/dL HIGHResult Comment: HDL CHOL ATP-III CLASSIFICATION Cardiovascular Risk HDL > or equal to 60 mg/dL LOW HDL < 40 mg/dL HIGHPerformed By: #### BLAKE, CUU #### [facility] [address] [place] [id number] USASerum or plasma total cholesterol/high density lipoprotein (HDL) cholesterol mass ratOrdered By: Nas Pruett on 01-17-2024 Cholesterol.total/Cholesterol in HDL [Mass ratio]2.2 {ratio}Normal<5.0Mer[facility] Medical CenterComment on above:Result Comment: PERFORMED BY: [address] [address] PATHOLOGIST PROCUREMENT ASSISTANT OREN OWEN M.D.Performed By: #### BLAKE, CUU #### [facility] [address] [place] [address] USATriglyceride [Mass/volume] in Serum or PlasmaOrdered By: Nas Pruett on 65-87-7523Xuiiolfgmifb [Mass/Vol]67 mg/dL0-149[facility] Medical CenterComment on above:TRIG ATP III CLASSIFICATIONTRIG less than 150 mg/dL NormalTRIG 150-199 mg/dL Borderline highTRIG 200-500 mg/dL High TRIG greater than 500 mg/dL Very highStandard traceable to the Center for Disease Co nrtrol and Prevention (CDC) test method.Troponin I High Sensitivityon 01-17-2024 Troponin I High Ifwzprocvgj22074.6 pg/mLOff scale high0.0-20.0The [facility] Physician GroupComment on above:Result Comment: Critical Result I_TnIHS_d:10414.6 Called to and read back by: WU MCDANIEL at: 01/17/2024 06:17:54 by:[id number] PERFORMED BY: [address] [address] PATHOLOGIST PROCUREMENT ASSISTANT OREN OWEN M.D.Performed By: #### BLAKE, CUU #### [facility] [address] [place] [address] USATroponin I.cardiac [Mass/volume] in Serum or Plasma by Detection limit <= 0.01 ng/Ordered By: Nas Pruett on 93-06-5536Fcscvxnb I.cardiac DL <= 0.01 ng/mL [Mass/Vol]50529.6 pg/mLHigh0.0-20.0[facility] Medical CenterComment on above:Critical Result I_TnIHS_d:78600.6 Called to and read back by: WU MCDANIEL at: 01/17/2024 06:17:54 by:[id number] Cultureon 64-81-6548Dfijcvgw identified Cx Nom (U)ORGANISM: Enterococcus faecalis (O:ENTFAC) [place] Count >100,000 Aerobic RITESH Charge (PCMIC38) SUSCEPTIBILITY [...] RESISTANT TO ALL B-LACTAM DRUGS. PERFORMED BY: [place] [id number] PATHOLOGIST PROCUREMENT ASSISTANT OREN OWEN M.D.[facility] Physician GroupComment on above:Performed By: #### PTT, PT #### [facility] [address] [place] [address] USAUrine culture routineOrdered By: Justina Lara on 83-75-9403Nubpdyiv identified Cx Nom (U)Enterococcus faecalisAbBarnesville HospitalXR chest 1V portableon 24-89-3032SR chest 1V portable [facility] Main [place] [address] [place] [address] XRay Report Signed Patient: Alex Anderson MR#: [id number] 36 : 1945 Acct:[id number] Age/Sex: 78 / M ADM Date: 01/16/24 Loc: 4C Room: [address] [place] [address] Type: ADM IN Attending Dr: Nas Pruett [...] Corky Max M.D.01/17/2024 11:34 AM Dictation Location: [place] [address] Transcribed By: [facility] 01/17/24 1134 Dictated By: Corky Max II, MD 01/17/24 1132 Signed By: 01/17/24 [facility] Physician GroupECG 12 lead ECGon 63-83-0744EHN 12 lead ECGSUBURBAN [facility] Main [address] [address] Electrocardiograph Report Signed Patient: Alex Anderson MR#: [id number] 36 : 1945 Acct:[id number] Age/Sex: 78 / M ADM Date: 01/16/24 Loc: 4C Room: [address] [place] [address] Type: ADM IN Attending Dr: Nas Pruett [...] Signed By Ana Castro MD 0 01/17/[address] [place] [address] Physician GroupECG 12 lead [facility] Main [place] [address] [place] [address] Electrocardiograph Report Signed Patient: Alex Anderson MR#: [id number] 36 : 1945 Acct:[id number] Age/Sex: 78 / M ADM Date: 01/16/24 Loc: Room: [address] [place] [address] Type: ADM IN Attending Dr: Nas Pruett [...] Signed By Ana Castro MD 0 01/17/24 0057[facility] Physician [facility] MeridianGlucose Poct Glucometerson 99-84-8597Rdyriij3Rsi7: Cleaned [facility] Physician [facility] Hospital Of MeridianComment on above:Result Comment: PERFORMED BY: [place] [address] PATHOLOGIST PROCUREMENT ASSISTANT OREN OWEN M.D.Performed By: #### HETALUAPLUS, CUU #### [place] [address] USAGlucose [Mass/Vol]118 mg/dLHCA Florida West Hospital Physician GroupComment on above:Result Comment: Random Glucose Reference Range is dependent on time and content of last meal. Glucose of more than 200 mg/dL in a nonstressed, ambulatory subject supports the diagnosis of Diabetes Mellitus.Performed By: #### ADDONUAPLUS, CUU #### [place] [id number] USAGlucose [Mass/Vol]119 mg/dLHCA [facility] Hospital Physician [facility] Hospital Of MeridianComment on above:Result Comment: Random Glucose Reference Range is dependent on time and content of last meal. Glucose of more than 200 mg/dL in a nonstressed, ambulatory subject supports the diagnosis of Diabetes Mellitus. PERFORMED BY: [place] [address] PATHOLOGIST PROCUREMENT ASSISTANT OREN OWEN M.D.Performed By: #### OCTAVIOONUAPLUS, CUU #### [place] [id number] USANo Panel InformationOrdered By: Nas Pruett on 01-16-2024 Bedside Glucose CommentGlu2: cleaned [facility] Troponin I High Sensitivityon 24-32-2148Koitwbey I High Omlqifrlarv60767.2 pg/mL Off scale high0.0-20.0The [facility] Physician GroupComment on above:Result Comment: Critical Result I_TnIHS_d:67153.2 Called to and read back by: BRIDGETTE LUIS at: 01/16/2024 20:40:51 by:[id number] PERFORMED BY: [place] [address] PATHOLOGIST PROCUREMENT ASSISTANT OREN OWEN M.D.Performed By: #### HS TROP #### [facility] [address] [place], [place] [id number] USATroponin I High Gkhzhmnfabw420950.4 pg/mLOff scale high 0.0-20.0The [facility] Physician GroupComment on above:Result Comment: Critical Result I_TnIHS_d:284823.4 Called to and read back by: BROOKE CANDELARIA at: 01/16/2024 18:52:06 by:[email or web address] PERFORMED BY: [place] [address] PATHOLOGIST PROCUREMENT ASSISTANT OREN OWEN M.D.Performed By: #### BLAKE, CUU #### [place] [id number] USATroponin I High Slojehhhxzs333652.2 pg/mLOff scale high 0.0-20.0The [facility] Physician GroupComment on above:Result Comment: Critical Result I_TnIHS_d:135456.2 Called to and read back by: BROOKE CANDELARIA at: 01/16/2024 16:28:58 by:[id number] PERFORMED BY: [place] [address] PATHOLOGIST PROCUREMENT ASSISTANT OREN OWEN M.D.Performed By: #### BLAKE, CUU #### [place] [id number] USATroponin I High Luxatjtqifh23466.4 pg/mLOff scale high 0.0-20.0The [facility] Physician GroupComment on above:Result Comment: Critical Result I_TnIHS_d:88180.4 Called to and read back by: BROOKE CANDELARIA at: 01/16/2024 14:15:37 by:[id number] PERFORMED BY: [place] [id number] PATHOLOGIST PROCUREMENT ASSISTANT OREN OWEN M.D.Performed By: #### BLAKE, CUU #### [address] [address] USANo Panel InformationOrdered By: Willy Lambert on 33-70-5236Obpagsvbsigoa Pathology TestSee commentMercy Health Springfield Regional Medical CenterComment on above:See report. Scanned copy available in EMR.Pathology Request for Lab Corpon 64-08-2548Pjtfyaiae Request for Lab CorpNormH[facility] Physician GroupComment on above:Order Comment: PATHOLOGY GI SPECIMEN Result Comment: See report. Scanned copy available in EMR. PERFORMED BY: [place] [address] PATHOLOGIST PROCUREMENT ASSISTANT OREN OWEN M.D.Performed By: #### PATH TO [facility] #### [address] [address] USACholesterol [Mass/volume] in Serum or PlasmaOrdered By: Teo Al on 24-67-3933Yapciljvgtl [Mass/Vol]91 mg/kGFhk638-982IuhojkgmeMercy Health Springfield Regional Medical CenterComment on above:Chol less than 200 mg/dl low riskChol 201-239 mg/dl borderline riskChol 240 mg/dl and greater high riskResult Comment: Chol less than 200 mg/dl low risk Chol 201-239 mg/dl borderline risk Chol 240 mg/dl and greater high riskPerformed By: #### BLAKE, CUU #### [address] [address] USACholesterol in LDL Calc [Mass/Vol]Ordered By: Teo Al on 59-53-0660Zwdivxheivn in LDL [Mass/Vol]37 mg/dL0-100[facility] Medical CenterComment on above:LDL ATP III CLASSIFICATIONLDL less than 100 mg/dL OptimalLDL 100-129 mg/dL Near or above wizygacWBK669-011 mg/dL Borderline highLDL 160-189 mg/dL HighLDL greater than 189 mg/dL Very high Cholesterol in VLDL Calc [Mass/Vol]Ordered By: Teo Al on 12-26-2023 Cholesterol in VLDL [Mass/Vol]18 mg/dLMercy Health Springfield Regional Medical CenterLipid Panelon 24-52-0789JGW Cholesterol,Twzepyburf32 mg/dLNormal0-100The [facility] Physician GroupComment on above:Result Comment: LDL ATP III CLASSIFICATION LDL less than 100 mg/dL Optimal LDL 100-129 mg/dL Near or above optimal LDL 130-159 mg/dL Borderline high LDL 160-189 mg/dL High LDL greater than 189 mg/dL Very highPerformed By: #### ADDONUAPLUS, CUU #### [facility] [address] [place] [address] USATriglyceride w/Hhuygd12 mg/dLNormal0-149The [facility] Physician GroupComment on above:Result Comment: TRIG ATP III CLASSIFICATION TRIG less than 150 mg/dL Normal TRIG 150-199 mg/dL Borderline high TRIG 200-500 mg/dL High TRIG greater than 500 mg/dL Very high Standard traceable to the Center for Disease Conrtrol and Prevention (CDC) test method.Performed By: #### ADDONUAPLUS, CUU #### [facility] [address] [place] [address] USAVLDL EXTNTTQYMGE15 mg/dLNormalThe [facility] Physician [facility] Of MeridianComment on above:Performed By: #### HETALUAPLUS, CUU #### [facility] [address] [place] [address] USASerum or plasma high density lipoprotein (HDL) cholesterol measurementOrdered By: Teo Al on 52-18-1237Brwnszjrita in HDL [Mass/Vol]35 mg/uDLkjyjg73-89XdzvcijweMercy Health Springfield Regional Medical CenterComment on above: HDL CHOL ATP-III CLASSIFICATION Cardiovascular RiskHDL > or equal to 60 mg/dL LOWHDL < 40 mg/dL HIGHResult Comment: HDL CHOL ATP-III CLASSIFICATION Cardiovascular Risk HDL > or equal to 60 mg/dL LOW HDL < 40 mg/dL HIGHPerformed By: #### ADDONUAPLUS, CUU #### [facility] [address] [place] [address] USASerum or plasma total cholesterol/high density lipoprotein (HDL) cholesterol mass ratOrdered By: Teo Al on 12-26-2023 Cholesterol.total/Cholesterol in HDL [Mass ratio]2.6 {ratio}Normal<5.0[facility] Medical CenterComment on above:Result Comment: PERFORMED BY: [facility] [address] [place] [address] PATHOLOGIST PROCUREMENT ASSISTANT OREN OWEN M.D.Performed By: #### JHONNY LOZANO #### [facility] [address] [place] [address] USATriglyceride [Mass/volume] in Serum or PlasmaOrdered By: Teo Al on 89-55-2238Jyroukethffm [Mass/Vol]94 mg/dL0-149[facility] Medical CenterComment on above:TRIG ATP III CLASSIFICATIONTRIG less than 150 mg/dL NormalTRIG 150-199 mg/dL Borderline highTRIG 200-500 mg/dL High TRIG greater than 500 mg/dL Very highStandard traceable to the Center for Disease Conrtrol and Prevention (CDC) test method.Erythrocyte distribution width Auto (RBC) [Ratio]on 09-99-3419Tatzofvxxxn distribution width (RBC) [Ratio]15.4 %High11.0-15.0[facility] Medical CenterHematocrit Auto (Bld) [Volume fraction]on 96-31-4295Ipsjedmyte (Bld) [Volume fraction]41.3 %Low42.0-54.0 [facility] Medical CenterHemoglobin [Mass/volume] in Bloodon 10-16-2023 Hemoglobin (Bld) [Mass/Vol]13.3 g/dLLow14.0-18.0[facility] Medical CenterLaboratory - Chemistry and Chemistry - challengeon 68-88-1800Aqzlnvmdh [Mass/Vol]2.1 mg/dL1.8-2.4FTriHealth McCullough-Hyde Memorial HospitalUrate [Mass/Vol]5.9 mg/dL3.5-7.2FTriHealth McCullough-Hyde Memorial HospitalLeukocytes [#/volume] corrected for nucleated erythrocytes in Blood by Automated counon 44-02-0258NRO corrected for nucl RBC Auto (Bld) [#/Vol]9.3 10 3/uL4.0-11.0[facility] MCH Auto (RBC) [Entitic mass]on 24-39-7200VKN (RBC) [Entitic mass]27.8 pg 25.9-34.0[facility] Medical CenterMCHC Auto (RBC) [Mass/Vol]on 22-16-1036KMPM (RBC) [Mass/Vol]32.2 g/dL29.9-35.2FTriHealth McCullough-Hyde Memorial HospitalMCV Auto (RBC) [Entitic vol]on 71-54-8605RGW (RBC) [Entitic vol]86.2 fL 80.0-94.0[facility] Medical CenterNo Panel Informationon 10-16-2023 Phosphorus Level2.7 mg/dL2.6-4.7FTriHealth McCullough-Hyde Memorial HospitalPlatelet mean volume Auto (Bld) [Entitic vol]on 94-35-6948Dsljelsp mean volume (Bld) [Entitic vol]10.1 fL9.5-13.5FTriHealth McCullough-Hyde Memorial HospitalPlatelets Auto (Bld) [#/Vol] on 04-17-9104Jerxsqfrv (Bld) [#/Vol]197 10 3/mW704-759DddvfeiggMercy Health Springfield Regional Medical CenterRBC Auto (Bld) [#/Vol]on 33-11-8034VFV (Bld) [#/Vol]4.79 10 6/uL4.70-6.10 [facility] CenterLaboratory - Chemistry and Chemistry - challengeon 61-23-8315Tzyspihkq Ql (U)NegativeMercy Health Springfield Regional Medical Center Glucose (U) [Mass/Vol]NegativeMercy Health Springfield Regional Medical CenterKetones Ql (U) NegativeMercy Health Springfield Regional Medical CenterpH (U)7.0 [pH][facility] Southpecific gravity (U) [Rel density]1.010Mer[facility] Medical CenterUrobilinogen (U) [Mass/Vol]0.2 mg/dLMercy Health Springfield Regional Medical Center Laboratory - Specimen informationon 75-82-0881Dzxbg (U)LtYellowMercy Health Springfield Regional Medical CenterLaboratory - Urinalysison 84-88-4387Oeduqxqnl esterase Test strip Ql (U)LargeMercy Health Springfield Regional Medical CenterNitrite Ql (U)Positive [facility] CenterProtein Ql (U)30[facility] Medical CenterCreatinine (Bld) [Mass/Vol]Ordered By: Margarito Valentine on 08-18-2023 Creatinine [Mass/Vol]2.4 mg/dL0.6-1.3FTriHealth McCullough-Hyde Memorial HospitalComment on above:ER/ESD physician is notified/shown all ISTAT results.Critical values may be confirmed by laboratorytesting ifdeemed necessary by ER attending doctor.No Panel InformationOrdered By: Margarito Valentine on 37-07-3145Sknribk Estimated GFR (eGFR)26.776Mer[facility] Medical CenterAlanine aminotransferase [Enzymatic activity/volume] in Serum or PlasmaOrdered By: Celia Griffin on 23-08-0545DFN [Catalytic activity/Vol]17 U/L7-52[facility] Medical CenterAlbumin [Mass/volume] in Serum or Plasma by Bromocresol green (BCG) dye binding methoOrdered By: Celia Griffin on 80-22-5626Khcxemi BCG dye [Mass/Vol]4.2 g/dL3.5-5.7FTriHealth McCullough-Hyde Memorial HospitalAlkaline phosphatase [Enzymatic activity/volume] in Serum or PlasmaOrdered By: Celia Griffin on 21-22-7603CQV [Catalytic activity/Vol]72 U/G53-550YmmhgpyhoMercy Health Springfield Regional Medical CenterAspartate aminotransferase [Enzymatic activity/volume] in Serum or PlasmaOrdered By: Celia Griffin on 54-87-3556VMK [Catalytic activity/Vol]16 U/U20-64FluldvdvhMercy Health Springfield Regional Medical CenterAutomated erythrocytes count in urine sediment (number/area) Ordered By: Celia Griffin on 10-79-7906ATA Auto (Urine sed) [#/Area]3-4 [HPF]0-4 [facility] Medical CenterAutomated leukocytes count in urine sediment (number/area)Ordered By: Celia Griffin on 23-69-5808XMB Auto (Urine sed) [#/Area] 50-100 [HPF]0-4FTriHealth McCullough-Hyde Memorial HospitalBilirubin Test strip Ql (U) Ordered By: Celia Griffin on 20-81-0196Itvyqtgpm Ql (U)NegativeNegativeMercy Health Springfield Regional Medical CenterBilirubin.total [Mass/volume] in Serum or PlasmaOrdered By: Celia Griffin on 07-22-4570Gwfuwblfh [Mass/Vol]0.5 mg/dL0.3-1.0[facility] Medical CenterCalcium [Mass/volume] in Serum or PlasmaOrdered By: Celia Griffin on 61-55-3089Tkcrkmf [Mass/Vol]9.3 mg/dL8.6-10.3FTriHealth McCullough-Hyde Memorial HospitalCarbon dioxide, total [Moles/volume] in Serum or PlasmaOrdered By: Celia Griffin 39-80-9873SB6 [Moles/Vol]31.6 mmol/L21.0-31.0[facility] Medical CenterChloride [Moles/volume] in Serum or PlasmaOrdered By: Celia Griffin 86-10-5041Uobqcbod [Moles/Vol]107 mmol/Q11-320LnibkpzfeMercy Health Springfield Regional Medical CenterCholesterol [Mass/volume] in Serum or PlasmaOrdered By: Teo Al on 05-87-7746Mzguhnkjwpd [Mass/Vol]107 mg/rS587-114SzgbtcjltMercy Health Springfield Regional Medical CenterComment on above:Chol less than 200 mg/dl low riskChol 201-239 mg/dl borderline riskChol 240 mg/dl and greater high riskCholesterol in LDL Calc [Mass/Vol]Ordered By: Teo Al 08-32-6813Vqdtzrizicp in LDL [Mass/Vol] 47 mg/dL0-100[facility] Medical CenterComment on above:LDL ATP III CLASSIFICATIONLDL less than 100 mg/dL OptimalLDL 100-129 mg/dL Near or above qwsazaeINW051-125 mg/dL Borderline highLDL 160-189 mg/dL HighLDL greater than 189 mg/dL Very highCholesterol in VLDL Calc [Mass/Vol]Ordered By: Teo Al on 08-18-4170Mpzjifcvdmr in VLDL [Mass/Vol]26 mg/dLMercy Health Springfield Regional Medical CenterColor Auto (U)Ordered By: Celia Griffin on 92-65-5898Cvlsq (U)YellowSelect Medical Specialty Hospital - YoungstownCreatinine [Mass/volume] in Serum or Plasma Ordered By: Celia Griffin 08-08-2316Yjxkbtcihy [Mass/Vol]1.41 mg/dL0.70-1.30 [facility] Medical CenterCreatinine [Mass/volume] in UrineOrdered By: Celia Griffin 27-49-4606Jczrkvbnuy (U) [Mass/Vol]90.0 mg/dL14.0-26.0[facility] Medical CenterErythrocyte distribution width Auto (RBC) [Ratio]Ordered By: Celia Griffin 50-28-8347Plqqhqskazu distribution width (RBC) [Ratio]15.7 % 12.0-14.8[facility] Medical CenterFerritin [Mass/volume] in Serum or PlasmaOrdered By: Celia Griffin 94-73-1085Wfpplmis [Mass/Vol]34.1 ng/mL 23.9-336.2FTriHealth McCullough-Hyde Memorial HospitalFolate [Mass/volume] in Serum or PlasmaOrdered By: Celia Griffin 83-15-1171Vdcnfq [Mass/Vol]34.0 ng/mL>5.9 [facility] Medical CenterComment on above:Folate reference range: >5.9 ng/mlThe WHO technical consultation on folate and vitamin g13eztgxjuxqbnz has determined that folate concentrations lessthan 4 ng/ml are considered deficient. Globulin Calc (S) [Mass/Vol]Ordered By: Celia Griffin 60-46-7278Ydfqcehl (S) [Mass/Vol]2.8 g/dLMercy Health Springfield Regional Medical CenterGlucose [Mass/volume] in Serum or PlasmaOrdered By: Celia Griffin 90-68-6856Ttiobze [Mass/Vol]107 mg/dL 70-100[facility] Medical CenterComment on above:ADA recommended reference rangeRandom Glucose Reference Range is dependent on time and content of last meal. Glucose of more than 200 mg/dL in a nonstressed, ambulatory subject supports the diagnosisof Diabetes Mellitus.Hematocrit Auto (Bld) [Volume fraction]Ordered By: Celia Griffin 66-46-7098Oyfzbnqutd (Bld) [Volume fraction]43.8 %38.8-50.0[facility] Medical CenterHemoglobin [Mass/volume] in BloodOrdered By: Celia Griffin on 85-54-6815Ucczoezxsw (Bld) [Mass/Vol]14.3 g/dL13.0-17.0[facility] Medical CenterIron [Mass/volume] in Serum or PlasmaOrdered By: Celia Griffin on 77-34-6976Wrvi [Mass/Vol]53 ug/dL 50-212Mer[facility] Medical CenterIron binding capacity [Mass/volume] in Serum or PlasmaOrdered By: Celia Griffin on 00-65-6104Vnwl binding capacity [Mass/Vol]370 ug/vW734-573MlrypfswpMercy Health Springfield Regional Medical CenterIron saturation [Mass Fraction] in Serum or PlasmaOrdered By: Celia Griffin on 32-37-6986Bpay saturation [Mass fraction]14.3 %20-50[facility] Medical CenterKetones Auto test strip (U) [Mass/Vol]Ordered By: Celia Griffin on 61-53-3654Tslzgkc (U) [Mass/Vol]NegativeNegativeMercy Health Springfield Regional Medical CenterLaboratory - UrinalysisOrdered By: Celia Griffin on 74-33-0224Elnfera casts LM Ql (Urine sed) 9-19 [LPF]0-8[facility] Medical CenterLeukocytes [#/volume] corrected for nucleated erythrocytes in Blood by Automated counOrdered By: Celia Griffin on 04-40-4080GFU corrected for nucl RBC Auto (Bld) [#/Vol]8.4 10*3/uL4.1-10.5 [facility] Auto (RBC) [Entitic mass]Ordered By: Celia Griffin on 23-79-9898BAQ (RBC) [Entitic mass]27.3 pg27.5-35.2FTriHealth McCullough-Hyde Memorial HospitalMCHC Auto (RBC) [Mass/Vol]Ordered By: Celia Griffin on 04-08-2023 MCHC (RBC) [Mass/Vol]32.6 g/dL32.5-35.6FSumma Health Akron CampusV Auto (RBC) [Entitic vol]Ordered By: Celia Griffin on 82-70-1557NJR (RBC) [Entitic vol]83.8 fL83.5-101Mer[facility] Medical CenterMagnesium [Mass/volume] in Serum or PlasmaOrdered By: Celia Griffin on 46-12-0788Tamnnmjgp [Mass/Vol]2.2 mg/dL1.9-2.7FTriHealth McCullough-Hyde Memorial HospitalNitrite Test strip Ql (U)Ordered By: Celia Griffin on 60-63-3908Eytyyqt Ql (U)PositiveNegativeMercy Health Springfield Regional Medical CenterNo Panel InformationOrdered By: Celia Griffin on 04-08-2023 Estimated GFR (CKD-EPI)50.692 mL/MinMercy Health Springfield Regional Medical CenterPharmacy Creatinine Clearance (ChemN/AFTriHealth McCullough-Hyde Memorial HospitalParathyrin.intact [Mass/volume] in Serum or PlasmaOrdered By: Celia Griffin on 04-08-2023 Parathyrin.intact [Mass/Vol]76.6 pg/hR10-58PiytdxrdpMercy Health Springfield Regional Medical Center Phosphate [Mass/volume] in Serum or PlasmaOrdered By: Celia Griffin on 04-08-2023 Phosphate [Mass/Vol]2.8 mg/dL2.5-4.5FTriHealth McCullough-Hyde Memorial HospitalPlatelet mean volume Auto (Bld) [Entitic vol]Ordered By: Celia Griffin on 04-08-2023 Platelet mean volume (Bld) [Entitic vol]8.6 fL6.6-10.1FTriHealth McCullough-Hyde Memorial HospitalPlatelets Auto (Bld) [#/Vol]Ordered By: Celia Griffin on 04-08-2023 Platelets (Bld) [#/Vol]201 10*3/lO576-524EdupoueriMercy Health Springfield Regional Medical Center Potassium [Moles/volume] in Serum or PlasmaOrdered By: Celia Griffin on 70-37-8844Ryzmhlxjl [Moles/Vol]4.5 mmol/L3.5-5.1FTriHealth McCullough-Hyde Memorial HospitalProtein Auto test strip (U) [Mass/Vol]Ordered By: Celia Griffin on 26-79-2257Phpsgfy (U) [Mass/Vol]Trace mg/dLNegativeMercy Health Springfield Regional Medical CenterProtein [Mass/volume] in Serum or PlasmaOrdered By: Celia Griffin on 32-79-4438Lhioavk [Mass/Vol]7.0 g/dL6.4-8.9[facility] Protein [Mass/volume] in UrineOrdered By: Celia Griffin on 52-39-9949Cqgvfmr (U) [Mass/Vol]30 mg/dL0-9Mer[facility] Medical CenterRBC Auto (Bld) [#/Vol] Ordered By: Celia Griffin on 29-36-6157VZE (Bld) [#/Vol]5.22 10*6/uL3.90-5.60 [facility] Southerum or plasma albumin/globulin mass ratio Ordered By: Celia Griffin on 90-59-4686Snfqzpl/Globulin [Mass ratio]1.5 {ratio} [facility] Southerum or plasma anion gap determinationOrdered By: Celia Griffin on 41-04-2152Esuse gap [Moles/Vol]8.9 mmol/L6.0-15.0[facility] Southerum or plasma high density lipoprotein (HDL) cholesterol measurementOrdered By: Teo Al on 13-72-5604Tidiyspqqbs in HDL [Mass/Vol]34 mg/iF71-48TulldqrztMercy Health Springfield Regional Medical CenterComment on above:HDL CHOL ATP-III CLASSIFICATION Cardiovascular RiskHDL > or equal to 60 mg/dL LOWHDL < 40 mg/dL HIGHSerum or plasma total cholesterol/high density lipoprotein (HDL) cholesterol mass ratOrdered By: Teo Al on 04-08-2023 Cholesterol.total/Cholesterol in HDL [Mass ratio]3.1 {ratio}<5.0[facility] Southodium [Moles/volume] in Serum or PlasmaOrdered By: Celia Griffin on 21-84-5150Dvxeil [Moles/Vol]143 mmol/I934-928WvttmcqtaPremier Health Miami [facility] Hospital Southpecific gravity Auto test strip (U) [Rel density]Ordered By: Celia Griffin on 66-92-4749Didqmdgk gravity (U) [Rel density]1.0171.001-1.030[facility] Southquamous epithelial cells detection in urine sediment by light microscopyOrdered By: Celia Griffin on 20-92-4594Heuztacihs cells.squamous LM Ql (Urine sed)0-1 [HPF]0-2[facility] CenterTransferrin [Mass/volume] in Serum or PlasmaOrdered By: Celia Griffin on 04-08-2023 Transferrin [Mass/Vol]264 mg/tT881-112GafhlgmcjMercy Health Springfield Regional Medical Center Triglyceride [Mass/volume] in Serum or PlasmaOrdered By: Teo Al on 03-63-5585Jnzodonrkmgw [Mass/Vol]131 mg/dL0-149[facility] Comment on above:TRIG ATP III CLASSIFICATIONTRIG less than 150 mg/dL NormalTRIG 150-199 mg/dL Borderline highTRIG 200-500 mg/dL High TRIG greater than 500 mg/dL Very highStandard traceable to the Center for Disease Conrtrol and Prevention (CDC) test method.Urate [Mass/volume] in Serum or PlasmaOrdered By: Celia Griffin on 74-17-5003Orjbg [Mass/Vol]6.0 mg/dL4.4-7.6FTriHealth McCullough-[facility] Hospital Urea nitrogen [Mass/volume] in Serum or PlasmaOrdered By: Celia Griffin on 04-40-0083Ulbw nitrogen [Mass/Vol]27 mg/dL7-25[facility] Urine bacteria detection by automated methodOrdered By: Celia Griffin on 51-98-8325Ffzdxrnu Auto Ql (U)4+None SeenMercy Health Springfield Regional Medical CenterUrine clarity by refractometry automatedOrdered By: Celia Griffin on 17-06-3438Phaoeqp Refractometry automated (U)CloudyCleAdena Health SystemUrine glucose measurement by automated test strip (mass/volume)Ordered By: Celia Griffin on 06-59-7145Usroqfa Auto test strip (U) [Mass/Vol]Normal mg/dLNormal [facility] CenterUrine hemoglobin detection by automated test stripOrdered By: Celia Griffin on 15-24-4241Abdwqccegj Auto test strip Ql (U)1+ NegativeMercy Health Springfield Regional Medical CenterUrine leukocyte esterase detection by automated test stripOrdered By: Celia Griffin on 44-96-2883Ewwfoqlri esterase Auto test strip Ql (U)4+NegativeMercy Health Springfield Regional Medical CenterUrine protein/creatinine ratioOrdered By: Celia Griffin on 93-91-1305Xnmonkq/Creatinine (U) [Ratio]333 mg/g{Cre}0-200Mer[facility] Medical CenterUrobilinogen Auto test strip (U) [Mass/Vol]Ordered By: Celia Griffin on 39-71-2953Scqcpfnbjfln (U) [Mass/Vol]Normal mg/dLNormalMercy Health Springfield Regional Medical CenterVitamin B12 ser/plasOrdered By: Celia Griffin on 86-48-4272Lzqihviaf (Vitamin B12) [Mass/Vol] 301 pg/kP796-708FekclrggoMercy Health Springfield Regional Medical CenterVitamin D+Metabolites [Mass/volume] in Serum or PlasmaOrdered By: Celia Griffin on 18-72-6986Gsgmpvp D+Metabolites [Mass/Vol]37.5 ng/bL91-424FhwghkavkMercy Health Springfield Regional Medical CenterComment on above:VITAMIN D STATUS 25(OH)VITAMIN D RANGE (ng/mL) Deficient <20 Insufficient 20 to <60Mxqvnhuejv77 to 100Reference: Sixto MF,Federico MATA, Palomo LESLIE, et al. Evaluation,treatment, and prevention of vitamin D deficiency; an Endocrine Society clinical practice guideline. JCEM. 2010; 96 (7):1911-30.pH Auto test strip (U)Ordered By: Celia Griffin on 83-25-5618oC (U) 7.0 [pH]5.0-9.0Mer[facility] CenterOffice Visit (Cardiology)on 95-10-4914Bzthni-up visitDiagnoses/Problems Assessed Hypertension (401.9) (I10) Dyslipidemia (272.4) (E78.5) [...] Lipid Panel; Status:Active - Retrospective Authorization; Requested for:[id number]; Overweight with body mass index (BMI) of 27 to 27.9 in adult Healthy Weight Tips; Status:Complete - Retrospective Authorization; Done: [id number] Some eating tips that can help you lose weight.; Status:Complete - Retrospective Authorization; Done: 22Jan2023 SocHx: Current smoker Start: Aspirin 81 MG Oral Tablet Delayed Release; TAKE 1 TABLET DAILY Tobacco Use Screening; Status:Complete; Done: [id number] You need to stop smoking. Though it is not easy, more than half of all adult smokers have quit. We encourage you to write down all the reasons you should quit smoking and set a quit date for yourself. Ask us how we can help. You may also call [phone] for free resources and assistance.; Status:Complete - [...] regularly. Examination was only remarkable for overweight. Assessment/recommendations: 1?status post AAA stenting with EVAR 2022 [...] Inhalation Aerosol SolutionINHALE 2 PUFFS EVERY 4 HOURSAS NEEDED Ferrous Sulfate 325 (65 Fe) MG [...] negative for complaint. Vitals Vital Signs Recorded: [id number] 09:57AM Heart Rate72, L Radial Dtbezaaz273, LUE, Sitting Uwpsuszhc43, LUE, Sitting Height6 ft 2 in Nzidmv210 lb BMI Rgclgkocfd83.35 kg/m2 BSA Calculat (more content not included)...NormalUH Touchmountain view regional medical centerT[facility] Screening. on 74-62-7023Nfyg risk assessmenta) No falls within the last yearB[facility]idji [facility] 250 DO Work Phone: Tobacco use status CPHSa) [facility] 250 DO Work Phone: Tobacco Screening.[facility] 250 DO Work Phone: CULTURE URINEon 60-47-3782SZEOOLC URINEIsolate 1 Pseudomonas aeruginosa >100,000 cfu/mL of ORGANISM 1 Pseudomonas aeruginosa ANTIBIOTIC M.I.C RX STATUS Piperacillin/Tazobactam <=4 S F Ceftazidime <=1 S F Imipenem 2 S F Amikacin <=2 S F Gentamicin 2 S F Tobramycin <=1 S F Ciprofloxacin <=0.25 S F Levofloxacin <=0.12 S FNormalSelect Medical Specialty Hospital - YoungstownComment on above:Performed By: #### URTPCR #### [facility] [address] [place] [address] Dr. Karen GraceULI, URINARYon ,8 DihydroxyadenineNormalThMemorial HospitalComment on above:Performed By: #### UA #### [facility] [address] [place] [address] Dr. Karen PierceAmmonium Acid UrateNormalSelect Medical Specialty Hospital - YoungstownComment on above: Performed By: #### UA #### [facility] [address] [place] [address] Dr. Karen Skaggsirubin Ql (U)[facility] HospitalComment on above: Performed By: #### UA #### [facility] [address] [place] [address] Dr. Karen Bergeron Oxalate DihydrateNormalSelect Medical Specialty Hospital - YoungstownComment on above: Performed By: #### UA #### [facility] [address] [place] [address] Dr. Karen BergeronHPO4 (Brushite)[facility] Reserve HospitalComment on above: Performed By: #### UA #### [facility] [address] [place] [address] Dr. Karen Graceium BilirubinateNormalSelect Medical Specialty Hospital - YoungstownComment on above: Performed By: #### UA #### [facility] [address] [address] [address] Karen PierceCalcium CarbonateWestern Reserve HospitalComment on above: Performed By: #### UA #### [facility] [address] [address] [address] Karen Graceium Oxalate Fbmzfzbuxrb923 %NormalMercy Health [facility] Hospital on above:Performed By: #### UA #### [facility] [address] [address] [address] Karen Graceium PalmitateWestern Reserve HospitalComment on above: Performed By: #### UA #### [facility] [address] [address] [address] Karen Graceium PhosphateWestern Reserve HospitalComascension macomb on above: Performed By: #### UA #### [facility] [address] [address] [address] Karen Rivera StearateNormalSelect Medical Specialty Hospital - YoungstownComascension macomb on above: Performed By: #### UA #### [facility] [address] [address] [address] Karen PierceCarbonate ApatiteWestern Reserve HospitalComascension macomb on above: Performed By: #### UA #### [facility] [address] [address] [address] Karen PierceCellular MaterialWestern Reserve HospitalComascension macomb on above: Performed By: #### UA #### [facility] [address] [address] [address] Karen PierceCholesterolHenry County Hospital on above:Performed By: #### UA #### [facility] [address] [address] [address] Karen Salomon (U)[facility] on above: Performed By: #### UA #### [facility] [address] [address] [address] Karen PierceCommentWestern Reserve HospitalComascension macomb on above:Performed By: #### UA #### [facility] [address] [address] [address] Karen Eastonment:CommentHenry County Hospital on above:Result Comment: Physician questions regarding Calculi Analysis contact LabSsm [facility] at: [phone].Performed By: #### UA #### [facility] [address] [address] [address] Karen PierceCompositionCommentHenry County Hospital on above: Result Comment: Percentage (Represents the % composition)Performed By: #### UA #### [facility] [address] [place] [address] Dr. Karen PierceCystineHenry County Hospital on above:Performed By: #### UA #### [facility] [address] [place] [address] Dr. Karen Chinclaimer:CommentHenry County Hospital on above: Result Comment: This test was developed and its performance characteristics determined by LabSsm [facility]. It has not been cleared or approved by the Food and Drug Administration.Performed By: #### UA #### [facility] [address] [place] [address] Dr. Karen PierceDried BloodWestern Reserve HospitalComascension macomb on above:Performed By: #### UA #### [facility] [address] [place] [address] Dr. Karen PierceDrug or MetaboliteWestern Reserve HospitalComascension macomb on above: Performed By: #### UA #### [facility] [address] [place] [address] Dr. Karen PierceHydroxyapatiteWestern Reserve HospitalComascension macomb on above: Performed By: #### UA #### [facility] [address] [place] [address] Dr. Karen PierceMg NH4 PO4 (Struvite)Western Reserve HospitalComment on above: Performed By: #### UA #### [facility] [address] [place] [address] Dr. Karen PierceMgHPO4 (Newberyite)Western Reserve HospitalComment on above: Performed By: #### UA #### [facility] [address] [address] [address] Karen Mendosa component(s)Western Reserve HospitalComascension macomb on above: Performed By: #### UA #### [facility] [address] [address] [address] Karen Acosta.[facility] on above:Performed By: #### UA #### [facility] [address] [address] [address] Karen JaimesHenry County Hospital on above:Result Comment: Photograph will follow under a separate coverPerformed By: #### UA #### [facility] [address] [place] [address] Dr. Karen Rubin note:CommentHenry County Hospital on above: Result Comment: Calculi report will follow via computer, mail or basic combatant swimmer delivery.Performed By: #### UA #### [facility] [address] [place] [address] Dr. Karen MalloryDruyoGcvp0k0TgygqpBkt[address] on above:Result Comment: Multiple pieces received. Dimensions of the largest piece reported.Performed By: #### UA #### [facility] [address] [place] [address] Dr. Karen Choe UrateNUniversity Hospitals Geauga Medical Center on above: Performed By: #### UA #### [facility] [address] [place] [address] Dr. Karen RoweHenry County Hospital on above:Result Comment: Urinary BladderPerformed By: #### UA #### [facility] [address] [address] [address] Karen MancillaHenry County Hospital on above:Performed By: #### UA #### [facility] [address] [address] [address] Karen Carnes AcidHenry County Hospital on above:Performed By: #### UA #### [facility] [address] [address] [address] Karen PierceUric Acid DihydrateNormalSelect Medical Specialty Hospital - YoungstownComment on above: Performed By: #### UA #### [facility] [address] [address] [address] Karen PierceWeight158 mgWestern Reserve HospitalComascension macomb on above:Performed By: #### UA #### [facility] [address] [place] [address] Dr. Karen RamireznthineWestern Reserve HospitalComascension macomb on above:Performed By: #### UA #### [facility] [address] [place] [address] Dr. Karen Ryder URINE PROFILEon 23-72-9947Upzbkxcxu Ql (U)NegativeNormal NEGATIVESelect Medical Specialty Hospital - YoungstownComment on above:Performed By: #### JOVAN MESAR #### [facility] [address] [place] [address] Dr. Karen Wangarity (U)CLEARNormalCLEARSelect Medical Specialty Hospital - YoungstownComment on above: Performed By: #### BONITA ERUR #### [facility] [address] [place] [address] Dr. Karen Salomon (U)YELLOWNormalYELLOWKettering Health Hamiltonment on above: Performed By: #### BONITA ERUR #### [facility] [address] [place] [address] Dr. Karen Daigle micrscopic examination will be performed if indicated. NormalSelect Medical Specialty Hospital - YoungstownComment on above:Performed By: #### UMLUIS ALFREDO ERUR #### [facility] [address] [place] [address] Dr. Karen PierceGlucose Ql (U)NegativeNormalNEGATIVEKettering Health Hamilton on above:Performed By: #### UMICÁNGEL, ERUR #### [facility] [address] [place] [address] Dr. Karen PierceHemoglobin Ql (U)LARGEAbnormalNEGATIVEThe [facility] Comment on above:Performed By: #### BONITA, ERUR #### [facility] [address] [address] [address] Karen Artis Ql (U)NegativeNormalNEGATIVEThe [facility] HospitalComment on above:Performed By: #### BONITA, ERUR #### [facility] [address] [address] [address] Karen SevillaOCYTESLARGEAbnormalNEGATIVEThe [facility] HospitalComment on above:Performed By: #### BONITA, ERUR #### [facility] [address] [address] [address] Karen Jones Ql (U)PositiveAbnormalNEGATIVEThe [facility] Comment on above:Performed By: #### BONITA, ERUR #### [facility] [address] [place] [address] Dr. Karen PiercepH (U)5.5 [pH]Normal5-9The [facility] HospitalComment on above: Performed By: #### BONITA ERUR #### [facility] [address] [place] [address] Dr. Karen PierceProtein (U) [Mass/Vol]100 mg/dLAbnormalNEGATIVE/ TRACEThe [facility] HospitalComment on above:Performed By: #### BONITA ERUR #### [facility] [address] [place] [address] Dr. Karen PierceSPEC GRAVITY1.248Ebgnrw9.005-<=1.025The [facility] HospitalComment on above:Performed By: #### BONITA ERUR #### [facility] [address] [place] [address] Dr. Karen Moulton MICRO INDINDICATEDNormalThe [facility] HospitalComment on above: Performed By: #### BONITA, ERUR #### [facility] [address] [address] [address] Karen Hernandez Qn (U)1.0 {Tonio'U}/dLNormal0.2 - 1.0The [facility] on above:Performed By: #### BONITA, ERUR #### [facility] [address] [address] [address] Karen MEJIA ONLYon 61-50-5016ZUJKQDIJIULUYMuvoaodgTGBJ SEEN [facility] on above:Performed By: #### BONITA, ERUR #### [facility] [address] [address] [address] Karen Hunt identified Cx Nom (U)INDICATEDNoMemorial Health System Selby General HospitalComascension macomb on above:Performed By: #### BONITA, ERUR #### [facility] [address] [place] [address] Dr. Karen Patterson SEENNormalNONE SEENKettering Health Hamilton on above:Performed By: #### BONITA, ERUR #### [facility] [address] [place] [address] Dr. Karen Jade LM Nom (Urine sed)NONE SEENNormalNONE SEENKettering Health Hamilton on above:Performed By: #### BONITA, ERUR #### [facility] [address] [place] [address] Dr. Karen Carranzathelial cells LM Ql (Urine sed)NONE SEENNormalNONE SEEN /RARE The [facility] HospitalComascension macomb on above:Performed By: #### BONITA, ERUR #### [facility] [address] [place] [address] Dr. Karen Chan SEENNormalNONE SEENKettering Health Hamilton on above:Performed By: #### BONITA, ERUR #### [facility] [address] [address] [address] Karen Salinas (U) [#/Vol]/uLAbnormal0-2The [facility] on above:Performed By: #### BONITA, ERUR #### [facility] [address] [place] [address] Dr. Karen ChristiansonZjkxzUAO82-98CqlmtnyzBBTT SEENThe [facility] HospitalComment on above: Performed By: #### JOVAN MESAR #### [facility] [address] [place] [address] Dr. Karen Jung INTACTon 74-42-0315QWC, Uaqizs84 pg/xDFrpwrr83-47Zaq [facility] HospitalComment on above:Performed By: #### PTHINT #### [facility] [address] [place] [address] Dr. Karen PierceFERRITINon 72-87-4731Yxyprcga [Mass/Vol]49.0 ng/mLNormal 26.0-388.0The [facility] HospitalComment on above:Performed By: #### URTPCR #### [facility] [address] [place] [address] Dr. Karen Simms AND TIBCon 09-04-2022% XQSTJDUIQC45.3 %NormalThe [facility] HospitalComment on above:Performed By: #### URTPCR #### [facility] [address] [place] [address] Dr. Karen Simms [Mass/Vol]33.0 ug/dLCritically low65.0-175.0The [facility] HospitalComment on above:Performed By: #### URTPCR #### [facility] [address] [place] [address] Dr. Karen PierceTIBQuynh HJGLLU421.0 ug/rMXeeomj811.0-450.0The [facility] Comment on above:Performed By: #### URTPCR #### [facility] [address] [place] [address] Dr. Karen Lanier RANDOMon 12-05-8103Soexmphyr Ql (U)NegativeNormalNEGATIVEThe [facility] HospitalComment on above:Performed By: #### UA #### [facility] [address] [place] [address] Dr. Karen PierceClarity (U)CLEARNormalCLEARThe [facility] HospitalComment on above: Performed By: #### UA #### [facility] [address] [place] [address] Dr. Karen Parkslor (U)LT. YELLOWNormalYELLOWSelect Medical Specialty Hospital - YoungstownComment on above:Performed By: #### UA #### [facility] [address] [place] [address] Dr. Karen PierceGlucose Ql (U)NegativeNormalNEGATIVESelect Medical Specialty Hospital - YoungstownComment on above:Performed By: #### UA #### [facility] [address] [address] [address] Karen PierceHemoglobin Ql (U)MODERATEAbnormalNEGCenterville Comment on above:Performed By: #### UA #### [facility] [address] [place] [address] Dr. Karen PierceKetones Ql (U)NegativeNormalNEGATIVESelect Medical Specialty Hospital - YoungstownComment on above:Performed By: #### UA #### [facility] [address] [place] [address] Dr. Karen PierceLEUKOCYTESLARGEAbnormalNEGATIVESelect Medical Specialty Hospital - YoungstownComment on above:Performed By: #### UA #### [facility] [address] [place] [address] Dr. Karen PierceNitrite Ql (U)PositiveAbnormalNEGCenterville Comment on above:Performed By: #### UA #### [facility] [address] [place] [address] Dr. Karen PiercepH (U)6.5 [pH]Normal5-9[facility] - YoungstownComment on above: Performed By: #### UA #### [facility] [address] [place] [address] Dr. Karen PierceSPEC GRAVITY1.527Qhvwho7.005-<=1.025[facility] - YoungstownComment on above:Performed By: #### UA #### [facility] [address] [place] [address] Dr. Karen Lanier MLALVFS27 mg/dlAbnormalNEGATIVE/ TRACESelect Medical Specialty Hospital - [place] Comment on above:Performed By: #### UA #### [facility] [address] [place], [place] [id number] Dr. Karen Hernandez Qn (U)0.2 {Tonio'U}/dLNormal0.2 - 1.0The [facility] HospitalComment on above:Performed By: #### UA #### [facility] [address] [place] [address] Dr. Karen Vázquez T PROTEIN CREAT RATIOon 31-34-7876Birosav (U) [Mass/Vol] 65.2 mg/dLCritically high<=12.0The [facility] HospitalComment on above:Performed By: #### URTPCR #### [facility] [address] [place] [address] Dr. Karen Moulton PROT CREAT RAT0.76NormalThe [facility] HospitalComment on above: Performed By: #### URTPCR #### [facility] [address] [place] [address] Dr. Karen Vázquez CREAT85.95 mg/rLTnjfiz96.00-300.00The [facility] Comment on above:Performed By: #### URTPCR #### [facility] [address] [place] [address] Dr. Karen Ruffin B12 AND FOLATEon 79-74-2574Sepmhatoo (Vitamin B12) [Mass/Vol] 279.0 pg/lBCsbgsh076.0-986.0The [facility] HospitalComment on above:Performed By: #### URTPCR #### [facility] [address] [place] [address] Dr. Karen PierceFOLATE17.80 ng/mLNormal8.60-58.90The [facility] HospitalComment on above:Performed By: #### URTPCR #### [facility] [address] [place] [address] Dr. Karen PierceVITAMIN D 25 OHon 10-73-0064VKF D 25-OH29.9 ng/mLNormalThe [facility] HospitalComment on above:Performed By: #### URTPCR #### [facility] [address] [place] [address] Dr. Karen Ruffin D RANGESSEE BELOWWestern Reserve HospitalComment on above: Result Comment: <20 ng/mL Vit D deficient 20 - <30 ng/mL Vit D insufficient 30 - 100 ng/mL Vit D sufficient >100 ng/mL Potential ToxicityPerformed By: #### URTPCR #### [facility] [address] [place] [address] Dr. Karen Waters AUTO DIFFon 93-92-6989FTLO #0.1 103/ulNormal0.0-0.1The [facility] HospitalComment on above:Performed By: #### CBC #### [facility] [address] [place] [address] Dr. Karen PierceBasophils/100 WBC (Bld)0.7 %Normal0.2-2.0[facility] Comment on above:Performed By: #### CBC #### [facility] [address] [place] [address] Dr. Karen Valente #0.2 103/ulNormal0.0-0.7The [facility] HospitalComment on above: Performed By: #### CBC #### [facility] [address] [place] [address] Dr. Karen Reyesosinophils/100 WBC (Bld)2.6 %Normal0.9-7.0[facility] Comment on above:Performed By: #### CBC #### [facility] [address] [place] [address] Dr. Karen Reyesrythrocyte distribution width (RBC) [Ratio]13.8 %Muczfi03.0-15.0 [facility] - YoungstownComment on above:Performed By: #### CBC #### [facility] [address] [place] [address] Dr. Karen PierceHematocrit (Bld) [Volume fraction]38.9 %Critically low42.0-54.0 [facility] - YoungstownComascension macomb on above:Performed By: #### CBC #### [facility] [address] [place] [address] Dr. Karen PierceHemoglobin (Bld) [Mass/Vol]12.3 g/dLCritically low14.0-18.0The [facility] HospitalComment on above:Performed By: #### CBC #### [facility] [address] [place] [address] Dr. Karen Ayala #0.01 10e3/ulNormal0.00-0.03The [facility] HospitalComment on above:Performed By: #### CBC #### [facility] [address] [place] [address] Dr. Karen Ayala %0.1 %Normal0.0-0.5The [facility] HospitalComment on above: Performed By: #### CBC #### [facility] [address] [place] [address] Dr. Karen Torres #1.9 103/ulNormal1.2-3.8The [facility] HospitalComment on above:Performed By: #### CBC #### [facility] [address] [place] [address] Dr. Karen Brandthocytes/100 WBC (Bld)27.0 %Ofnseh93.5-60.0The [facility] HospitalComment on above:Performed By: #### CBC #### [facility] [address] [place] [address] Dr. Karen GarzaUAL DIFF REQNONormalThe [facility] HospitalComment on above: Performed By: #### CBC #### [facility] [address] [place] [address] Dr. Karen Michael (RBC) [Entitic mass]27.8 ckWgxuac92.9-34.0The [facility] HospitalComment on above:Performed By: #### CBC #### [facility] [address] [place] [address] Dr. Karen Michael (RBC) [Mass/Vol]31.6 g/pGOswegk74.9-35.2The [facility] HospitalComment on above:Performed By: #### CBC #### [facility] [address] [place] [address] Dr. Karen Michael (RBC) [Entitic vol]87.8 zKItrspv00.0-94.0The [facility] HospitalComment on above:Performed By: #### CBC #### [facility] [address] [place] [address] Dr. Karen Monteiro #0.6 103/ulNormal0.3-0.8The [facility] HospitalComment on above:Performed By: #### CBC #### [facility] [address] [place] [address] Dr. Karen Elizabethocytes/100 WBC (Bld)8.8 %Normal1.7-12.0The [facility] Comment on above:Performed By: #### CBC #### [facility] [address] [place] [address] Dr. Karen Cronin #4.4 103/ulNormal1.4-6.5The [facility] HospitalComment on above:Performed By: #### CBC #### [facility] [address] [place] [address] Dr. Karen Bakerutrophils/100 WBC (Bld)60.8 %Sngjgv64.0-75.0The [facility] HospitalComment on above:Performed By: #### CBC #### [facility] [address] [place] [address] Dr. Karen Burkett mean volume (Bld) [Entitic vol]9.9 fLNormal9.5-13.5The [facility] HospitalComment on above:Performed By: #### CBC #### [facility] [address] [place] [address] Dr. Karen LoyaT181 103/lsMomitn166-276Ust [facility] HospitalComment on above: Performed By: #### CBC #### [facility] [address] [place] [address] Dr. Karen PierceRBC4.43 106/ulCritically low4.70-6.10The [facility] HospitalComment on above:Performed By: #### CBC #### [facility] [address] [place] [address] Dr. Karen PierceWBC7.2 103/ulNormal4.0-11.0The [facility] HospitalComment on above: Performed By: #### CBC #### [facility] [address] [place] [address] Dr. Karen PierceMAGNESIUMon 15-65-8308Pengnubsc [Mass/Vol]2.2 mg/dLNormal1.8-2.4 The [facility] HospitalComment on above:Performed By: #### UA #### [facility] [address] [place] [address] Dr. Karen PiercePHOSPHORUSon 64-79-6287Mwyzazcgu [Mass/Vol]2.9 mg/dLNormal2.6-4.7 The [facility] HospitalComment on above:Performed By: #### UA #### [facility] [address] [place] [address] Dr. Karen PiercePROF 14(COMP METB)on 22-90-8185Aorvxof [Mass/Vol]3.5 g/dLNormal 3.4-5.0The [facility] HospitalComment on above:Performed By: #### PTHINT #### [facility] [address] [place] [address] Dr. Karen PierceAlbumin/Globulin [Mass ratio]1.0 {ratio}NormalThe [facility] & Brentwood Hospitalment on above:Performed By: #### PTHINT #### [facility] [address] [place] [address] Dr. Karen Murillo [Catalytic activity/Vol]86 U/VSelnuf92-511Okv [facility] HospitalComment on above:Performed By: #### PTHINT #### [facility] [address] [place] [address] Dr. Karen Matthew [Catalytic activity/Vol]17 U/ZZztspe02-79Bwq [facility] HospitalComment on above:Performed By: #### PTHINT #### [facility] [address] [place] [address] Dr. Karen Landon gap [Moles/Vol]13.0 mmol/LNormalThe [facility] on above:Performed By: #### PTHINT #### [facility] [address] [address] [address] Karen PierceAST [Catalytic activity/Vol]14 U/LCritically iau49-89Zny [facility] HospitalComment on above:Performed By: #### PTHINT #### [facility] [address] [address] [address] Karen PierceBilirubin [Mass/Vol]0.3 mg/dLNormal0.2-1.0The [facility] Comment on above:Performed By: #### PTHINT #### [facility] [address] [address] [address] Karen PierceCO2 [Moles/Vol]27.6 mmol/WAcihhk15.0-32.0[facility] Comment on above:Performed By: #### PTHINT #### [facility] [address] [place] [address] Dr. Karen PierceCreatinine [Mass/Vol]1.48 mg/dLCritically high0.70-1.30The [facility] HospitalComment on above:Performed By: #### PTHINT #### [facility] [address] [address] [address] Karen ReyesGFR-AF QBTTNZIY84 mL/min/1.33a4Itmxwtlvzz low>=60The [facility] HospitalComment on above:Performed By: #### PTHINT #### [facility] [address] [place] [address] Dr. Karen ReyesGFR-NON AF EQQJLFIU09 mL/min/1.99v1Twkqwtovoi low>=60The [facility] HospitalComment on above:Performed By: #### PTHINT #### [facility] [address] [address] [address] Karen PierceGlobulin (S) [Mass/Vol]3.6 g/dLNormalThe [facility] HospitalComment on above:Performed By: #### PTHINT #### [facility] [address] [place] [address] Dr. Karen PierceGlucose [Mass/Vol]105 mg/kINdbxgm10-783Mzp [facility] Comment on above:Performed By: #### PTHINT #### [facility] [address] [address] [address] Karen PierceProtein [Mass/Vol]7.1 g/dLNormal6.4-8.2The [facility] Comment on above:Performed By: #### PTHINT #### [facility] [address] [place] [address] Dr. Karen PierceSodium [Moles/Vol]142 mmol/THdofxu438-811Zcm [facility] Comment on above:Performed By: #### PTHINT #### [facility] [address] [place] [address] Dr. Karen PierceUrea nitrogen/Creatinine [Mass ratio]16.2 mg/mgNormalThe [facility] HospitalComment on above:Performed By: #### PTHINT #### [facility] [address] [place] [address] Dr. Karen PiercePROF CHEM 8 (BAS METB)on 39-71-1381Xmaxm gap [Moles/Vol]11.1 mmol/LNormalThe [facility] HospitalComment on above:Performed By: #### UA #### [facility] [address] [place] [address] Dr. Karen PierceCalcium [Mass/Vol]8.7 mg/dLNormal8.5-10.1[facility] Comment on above:Performed By: #### UA #### [facility] [address] [place] [address] Dr. Karen PiercePerformed By: #### PTHINT #### [facility] [address] [place] [address] Dr. Karen PierceChloride [Moles/Vol]106 mmol/IBrrjzo46-457Fsy [facility] Comment on above:Performed By: #### UA #### [facility] [address] [place] [address] Dr. Karen PiercePerformed By: #### PTHINT #### [facility] [address] [place] [address] Dr. Karen PierceCO2 [Moles/Vol]28.5 mmol/FYdyidm84.0-32.0The [facility] Comment on above:Performed By: #### UA #### [facility] [address] [place] [address] Dr. Karen PierceCreatinine [Mass/Vol]1.44 mg/dLCritically high0.70-1.30The [facility] HospitalComment on above:Performed By: #### UA #### [facility] [address] [place] [address] Dr. Karen ReyesGFR-AF IJRYJCPD09 mL/min/1.11k0Dygywdveji low>=60The [facility] HospitalComment on above:Performed By: #### UA #### [facility] [address] [place] [address] Dr. Karen ReyesGFR-NON AF DNLQCDOB82 mL/min/1.95e1Xmmsgcqlwm low>=60The [facility] HospitalComment on above:Performed By: #### UA #### [facility] [address] [place] [address] Dr. Karen PierceGlucose [Mass/Vol]104 mg/rMYwyahl59-261Mcc [facility] Comment on above:Performed By: #### UA #### [facility] [address] [place] [address] Dr. Karen PiercePotassium [Moles/Vol]4.6 mmol/LNormal3.5-5.1[facility] Comment on above:Performed By: #### UA #### [facility] [address] [place] [address] Dr. Karen PiercePerformed By: #### PTHINT #### [facility] [address] [place] [address] Dr. Karen PierceSodium [Moles/Vol]141 mmol/DKjewil804-609Hwd [facility] Comment on above:Performed By: #### UA #### [facility] [address] [place] [address] Dr. Karen PierceUrea nitrogen [Mass/Vol]24.0 mg/dLCritically high7.0-18.0The [facility] HospitalComment on above:Performed By: #### UA #### [facility] [address] [place] [address] Dr. Karen PiercePerformed By: #### PTHINT #### [facility] [address] [place] [address] Dr. Karen PierceUrea nitrogen/Creatinine [Mass ratio]16.7 mg/mgNoMemorial Health System Selby General HospitalComment on above:Performed By: #### UA #### [facility] [address] [place] [address] Dr. Karen PiercePROTIMEon 44-53-7427VPR Coag (PPP) [Relative time]1.01 {INR} NormalThe [facility] HospitalComment on above:Performed By: #### PTT, PT #### [facility] [address] [place] [address] Dr. Karen Stanley GUIDELINESSEE BELOWWestern Reserve HospitalComment on above:Result Comment: DESIRED INR: 2.0 - 3.0 CONDITIONS NOT LISTED BELOW 2.5 - 3.5 FOR PROSTHETIC HEART VALVE REPLACEMENT 2.5 - 3.5 RECURRENT THROMBOSIS Performed By: #### PTT, PT #### [facility] [address] [place] [address] Dr. Karen PiercePT Coag (PPP) [Time]10.7 sNormal9.0-11.6The [facility] Comment on above:Performed By: #### PTT, PT #### [facility] [address] [place] [address] Dr. Karen GusmanTon 02-70-7993tKIY Coag (Bld) [Time]28.2 wSbokme71.3-36.2[facility] - YoungstownComment on above:Performed By: #### PTT, PT #### [facility] [address] [place] [address] Dr. Karen PierceURIC ACID SERUMon 80-55-4647Biazt [Mass/Vol]4.8 mg/dLNormal 3.5-7.2The [facility] HospitalComment on above:Performed By: #### PTHINT #### [facility] [address] [place] [address] Dr. Yilan ChangCreatinine (Bld) [Mass/Vol]Ordered By: Margarito Valentine on 95-08-0067Jclmzecgtk [Mass/Vol]1.5 mg/dL0.6-1.3FTriHealth [facility] Comment on above:ER/ESD physician is notified/shown all ISTAT results.Critical values may be confirmed by laboratorytesting ifdeemed necessary by ER attending doctor.Creatinine (Bld) [Mass/Vol]Ordered By: Heather Omalley on 07-24-2022 Creatinine [Mass/Vol]1.6 mg/dL0.6-1.3FTriHealth McCullough-Hyde Memorial HospitalComment on above:ER/ESD physician is notified/shown all ISTAT results.Critical values may be confirmed by laboratorytesting ifdeemed necessary by ER attending doctor.No Panel InformationOrdered By: Heather Omalley on 26-60-0306JDQ Estimated GFR [address]ucg[address] [place], [place] [address]Comment on above:GFR estimated reference range: According to KDOQI guidelines, <60 ml/min/1.73m2 is sufficient todiagnose a patient with chronic kidney disease.POC Estimated GFR Non- Wvbj92LundfndoiMercy Health Springfield Regional Medical CenterBlood activated clotting time by coagulation assayOrdered By: Margarito Valentine on 05-71-2464EOQ Coag (Bld) 215 v59-846XdvkeuiscMercy Health Springfield Regional Medical CenterComment on above:Reference Range: 90-139 (Non-heparinized)Basophils Auto (Bld) [#/Vol]Ordered By: Margarito Valentine on 02-22-0149Txmxrbenu (Bld) [#/Vol]0.1 10*3/uL0.0-0.2FTriHealth McCullough-Hyde Memorial HospitalBasophils/100 WBC Auto (Bld)Ordered By: Margarito Valentine on 06-04-0198Qawnulatk/100 WBC (Bld)0.9 %.[facility] CenterCreatinine and Glomerular filtration rate.predicted panel (S/P/Bld)Ordered By: Margarito Valentine on 88-88-3901Hyfphqihfn [Mass/Vol]1.24 mg/dL0.64-1.27 [facility] Medical CenterEosinophils Auto (Bld) [#/Vol]Ordered By: Margarito Valentine on 56-59-9500Inrwaxlcvbc (Bld) [#/Vol]0.2 10*3/uL0.0-0.45 [facility] CenterEosinophils/100 WBC Auto (Bld)Ordered By: Margarito Valentine on 86-83-9097Ipdionsvfae/100 WBC (Bld)2.5 %.[facility] Medical CenterErythrocyte distribution width Auto (RBC) [Ratio]Ordered By: Margarito Valentine on 71-63-8471Xgbkxbebfin distribution width (RBC) [Ratio] 18.0 %12.0-14.8[facility] Medical CenterEstimated glomerular filtration rate (GFR) non- AmericanOrdered By: Margarito Valentine on 06-21-2022 GFR/1.73 sq M.predicted among non-blacks MDRD (S/P/Bld) [Vol rate/Area]56 mL/Min [facility] Medical CenterHematocrit Auto (Bld) [Volume fraction]Ordered By: Margarito Valentine on 30-30-3843Iguouyvpnt (Bld) [Volume fraction]37.7 % 38.8-50.0[facility] Medical CenterHemoglobin [Mass/volume] in Blood Ordered By: Margarito Valentine on 83-99-3777Gkqtyrikru (Bld) [Mass/Vol]12.3 g/dL 13.0-17.0[facility] Medical CenterLeukocytes [#/volume] corrected for nucleated erythrocytes in Blood by Automated counOrdered By: Margarito Valentine on 07-25-7450UAT corrected for nucl RBC Auto (Bld) [#/Vol]7.1 10*3/uL4.1-10.5 [facility] CenterLymphocytes Auto (Bld) [#/Vol]Ordered By: Margarito Valentine on 90-94-8831Vjydxtwklyp (Bld) [#/Vol]1.3 10*3/uL1.00-4.8 [facility] CenterLymphocytes/100 WBC Auto (Bld)Ordered By: Margarito Valentine on 84-42-5949Tilnxmqxkmk/100 WBC (Bld)18.7 %.[facility] Medical CenterMCH Auto (RBC) [Entitic mass]Ordered By: Margarito Valentine on 80-32-7987SNK (RBC) [Entitic mass]28.2 pg27.5-35.2FTriHealth McCullough-Hyde Memorial HospitalMCHC Auto (RBC) [Mass/Vol]Ordered By: Margarito Valentine on 81-61-1047ZPBU (RBC) [Mass/Vol]32.6 g/dL32.5-35.6FTriHealth McCullough-Hyde Memorial HospitalMCV Auto (RBC) [Entitic vol]Ordered By: Margarito Valentine on 06-21-2022 MCV (RBC) [Entitic vol]86.5 fL83.5-101[facility] Medical CenterMonocytes Auto (Bld) [#/Vol]Ordered By: Margarito Valentine on 19-48-0428Uvcivsnjd (Bld) [#/Vol]0.7 10*3/uL0.0-0.8[facility] CenterMonocytes/100 WBC Auto (Bld)Ordered By: Margarito Valentine on 05-97-8844Ablhhpzbf/100 WBC (Bld)10.3 %. [facility] Medical CenterNeutrophils Auto (Bld) [#/Vol]Ordered By: Margarito Valentine on 14-69-6030Ghkkoitgmnu (Bld) [#/Vol]4.8 10*3/uL1.8-7.7 [facility] CenterNeutrophils/100 WBC Auto (Bld)Ordered By: Margarito Valentine on 07-13-2193Rxzmemviach/100 WBC (Bld)67.6 %.[facility] CenterNo Panel InformationOrdered By: Margarito Valentine on 67-49-3899Kodjmvcpy GFR ()> 60 mL/MinMercy Health Springfield Regional Medical CenterComment on above:GFR estimated reference range: According to KDOQI guidelines, <60 ml/min/1.73m2 is sufficient todiagnose a patient with chronic kidney disease.Pharmacy Creatinine Clearance (ChemN/[facility] Medical CenterNucleated erythrocytes [Presence] in Blood by Automated countOrdered By: Margarito Valentine on 67-34-0707Heirojkgd RBC Auto Ql (Bld)0.1 /100{WBC}0-0.5 [facility] Medical CenterPlatelet mean volume Auto (Bld) [Entitic vol] Ordered By: Margarito Valentine on 94-23-6353Lrzmdwiy mean volume (Bld) [Entitic vol]8.2 fL6.6-10.1FTriHealth McCullough-Hyde Memorial HospitalPlatelets Auto (Bld) [#/Vol] Ordered By: Margarito Valentine on 77-74-1370Wcxxtrmlk (Bld) [#/Vol]149 10*3/uL 150-450[facility] Medical CenterRBC Auto (Bld) [#/Vol]Ordered By: Margarito Valentine on 81-91-5188ZZQ (Bld) [#/Vol]4.36 10*6/uL3.90-5.60[facility] Southerum or plasma anion gap determinationOrdered By: Margarito Valentine on 21-77-5683Fuogk gap [Moles/Vol]10.8 mmol/L6.0-15.0 [facility] Southerum or plasma calcium measurement (mass/volume)Ordered By: Margarito Valentine on 07-31-9685Wulqidy [Mass/Vol]8.8 mg/dL8.2-10.2FOhioHealth Berger Hospitalerum or plasma chloride measurement (moles/volume)Ordered By: Margarito Valentine on 07-71-0791Sefsbglz [Moles/Vol]107 mmol/U58-924UztnedtovPremier Health [facility] Hospital Southerum or plasma glucose measurement (mass/volume)Ordered By: Margarito Valentine on 06-21-2022 Glucose [Mass/Vol]103 mg/nJ07-108WpsbhuvbmMercy Health Springfield Regional Medical CenterComment on above:ADA recommended reference rangeRandom Glucose Reference Range is dependent on time and content of last meal. Glucose of more than 200 mg/dL in a nonstressed, ambulatory subject supports the diagnosisof Diabetes Mellitus.Serum or plasma potassium measurement (moles/volume)Ordered By: Margarito Valentine on 39-66-5314Rgbimrbfa [Moles/Vol]4.2 mmol/L3.5-5.1FOhioHealth Berger Hospitalerum or plasma sodium measurement (moles/volume)Ordered By: Margarito Valentine on 22-01-3583Sncsxx [Moles/Vol]138 mmol/F426-339IqktrbkpvPremier Health Miami Valley Hospital Southerum or plasma total carbon dioxide measurement (moles/volume) Ordered By: Margarito Valentine on 43-83-1286XR6 [Moles/Vol]24.4 mmol/L22.0-30.0 [facility] Southerum or plasma urea nitrogen measurement (mass/volume)Ordered By: Margarito Valentine on 18-71-0502Hpmd nitrogen [Mass/Vol]18 mg/dL9-23[facility] CenterWBC Auto (Bld) [#/Vol] Ordered By: Margarito Valentine on 55-25-3031EXU (Bld) [#/Vol]7.1 10*3/uL4.1-10.5 [facility] CenterOffice Visit (Cardiology)on 41-53-2088Xemdvs-up visitDiagnoses/Problems Assessed Dyslipidemia (272.4) (E78.5) Hypertension (401.9) (I10) [...] Complaint ALEX ANDERSON is being seen for [facility] [place]/ekg. 76-year-old white [...] events but apparently had 1 event of TIAin the past. He has excellent pulses in his lower extremities. Patient is awake and alert and his was with him. His examination was unremarkable. Assessment/recommendations: 1?patient need cardiac clearance prior to AAA [...] Signs Recorded: 03Jun2022 03:38PM Heart Rate71, Apical Omonjkjr370, LUE, Sitting Colsitztm48, LUE, Sitting Height6 ft 2 in Xpxndd895 lb BMI Daendaippd20.45 kg/m2 BSA Calculated2.2 Tobacco Useb) No PHQ-2 #1. Over the last 2 weeks have you felt down, depressed or hopeless? (If yes, answer PHQ-9 below)No PHQ-2 #2. Over the last 2 weeks have you felt little interest or pleasure in doing things? (If yes,answer PHQ-9 below)No Falls Screening (Age 18+)a) No [...] no thrills , regular (more content not included)...NormalUH TouchworksTobacco Screening.on 68-58-1293Xmtky depression screening assessmentNoSwed[facility] Medical [facility] [employer] DO Work Phone: Fall risk assessmenta) No falls within the last year [facility] [employer] DO Work Phone: Tobacco use status CPHSb) NoMNavos Health [facility] 250 DO Work Phone: Basophils Auto (Bld) [#/Vol]Ordered By: Bernabe Cr on 81-76-2422Pnulzgemc (Bld) [#/Vol]0.1 10*3/uL0.0-0.2FTriHealth McCullough-Hyde Memorial HospitalBasophils/100 WBC Auto (Bld)Ordered By: Bernabe Cr on 02-83-8252Stftiuoug/100 WBC (Bld)1.2 %.[facility] CenterCreatinine and Glomerular filtration rate.predicted panel (S/P/Bld)Ordered By: Bernabe Cr on 26-34-7813Ahlwvbnykd [Mass/Vol]1.78 mg/dL0.64-1.27 [facility] CenterEosinophils Auto (Bld) [#/Vol]Ordered By: Bernabe Cr on 05-83-8947Rsglqvugqie (Bld) [#/Vol]0.3 10*3/uL0.0-0.45 [facility] CenterEosinophils/100 WBC Auto (Bld)Ordered By: Bernabe Cr on 59-35-6224Odxkmczewvw/100 WBC (Bld)3.6 %.[facility] CenterErythrocyte distribution width Auto (RBC) [Ratio]Ordered By: Bernabe Cr on 67-50-7162Rnyujbtvimo distribution width (RBC) [Ratio]15.3 %12.0-14.8[facility] CenterEstimated glomerular filtration rate (GFR) non- AmericanOrdered By: Bernabe Cr on 51-50-9867BNE/1.73 sq M.predicted among non-blacks MDRD (S/P/Bld) [Vol rate/Area]37 mL/MinMercy Health Springfield Regional Medical CenterHematocrit Auto (Bld) [Volume fraction]Ordered By: Bernabe Cr on 33-56-7730Frgntgefig (Bld) [Volume fraction]36.2 %38.8-50.0[facility] CenterHemoglobin [Mass/volume] in BloodOrdered By: Bernabe Cr on 79-93-3197Qomqdgttfs (Bld) [Mass/Vol]11.7 g/dL13.0-17.0[facility] CenterLeukocytes [#/volume] corrected for nucleated erythrocytes in Blood by Automated coun Ordered By: Bernabe Cr on 27-11-5715GSA corrected for nucl RBC Auto (Bld) [#/Vol]8.1 10*3/uL4.1-10.5FTriHealth McCullough-Hyde Memorial HospitalLymphocytes Auto (Bld) [#/Vol]Ordered By: Bernabe Cr on 93-95-2159Rszxmazmbaw (Bld) [#/Vol]1.4 10*3/uL1.00-4.8[facility] CenterLymphocytes/100 WBC Auto (Bld)Ordered By: Bernabe Cr on 43-81-4543Dfoqvujzrts/100 WBC (Bld)16.9 %.[facility] ClinicH Auto (RBC) [Entitic mass] Ordered By: Bernabe Cr on 25-89-5705RLQ (RBC) [Entitic mass]27.4 pg 27.5-35.2FTriHealth McCullough-Hyde Memorial HospitalMCHC Auto (RBC) [Mass/Vol]Ordered By: Bernabe Cr on 25-05-1761HFEK (RBC) [Mass/Vol]32.5 g/dL32.5-35.6 [facility] CenterMCV Auto (RBC) [Entitic vol]Ordered By: Bernabe Cr on 06-37-0393FJT (RBC) [Entitic vol]84.3 fL83.5-101 [facility] CenterMonocytes Auto (Bld) [#/Vol]Ordered By: Bernabe Cr on 15-65-4408Nfyjpdqag (Bld) [#/Vol]0.8 10*3/uL0.0-0.8 [facility] CenterMonocytes/100 WBC Auto (Bld)Ordered By: Bernabe Cr on 34-36-1377Wcawzctkr/100 WBC (Bld)10.1 %.[facility] Medical CenterNeutrophils Auto (Bld) [#/Vol]Ordered By: Bernabe Cr on 56-53-4936Nsjgnimxbun (Bld) [#/Vol]5.6 10*3/uL1.8-7.7FTriHealth McCullough-Hyde Memorial HospitalNeutrophils/100 WBC Auto (Bld)Ordered By: Bernabe Cr on 81-04-2350Yxqwizoatfk/100 WBC (Bld)68.2 %.[facility] CenterNo Panel InformationOrdered By: Bernabe Cr on 05-22-2022 Estimated GFR ()45 mL/MinMercy Health Springfield Regional Medical Center Comment on above:GFR estimated reference range: According to KDOQI guidelines, <60 ml/min/1.73m2 is sufficient todiagnose a patient with chronic kidney disease.Pharmacy Creatinine Clearance (Chem39.77[facility] CenterNucleated erythrocytes [Presence] in Blood by Automated countOrdered By: Bernabe Cr on 90-54-3409Gvbbwrgsl RBC Auto Ql (Bld)0.1 /100{WBC}0-0.5 [facility] Medical CenterPlatelet mean volume Auto (Bld) [Entitic vol] Ordered By: Bernabe Cr on 08-08-0255Dmqtdlzb mean volume (Bld) [Entitic vol]8.7 fL6.6-10.1FTriHealth McCullough-Hyde Memorial HospitalPlatelets Auto (Bld) [#/Vol]Ordered By: Bernabe Cr on 76-83-4993Fwnsuqvbo (Bld) [#/Vol]198 10*3/eE415-153RhuzdplstMercy Health Springfield Regional Medical CenterRBC Auto (Bld) [#/Vol]Ordered By: Bernabe Cr on 16-97-4937GZT (Bld) [#/Vol]4.29 10*6/uL3.90-5.60 [facility] Southerum or plasma anion gap determinationOrdered By: Bernabe Cr on 71-32-8153Irtub gap [Moles/Vol]13.3 mmol/L6.0-15.0 [facility] Southerum or plasma calcium measurement (mass/volume)Ordered By: Bernabe Cr on 24-53-7948Ciihqwc [Mass/Vol]8.3 mg/dL8.2-10.2FOhioHealth Berger Hospitalerum or plasma chloride measurement (moles/volume)Ordered By: Bernabe Cr on 85-92-3536Tluudyzz [Moles/Vol]104 mmol/E53-764UjzojkhsyPremier Health Miami [facility] Hospital Southerum or plasma glucose measurement (mass/volume)Ordered By: Bernabe Cr on 05-22-2022 Glucose [Mass/Vol]180 mg/kF19-776WctmhquwmMercy Health Springfield Regional Medical CenterComment on above:ADA recommended reference rangeRandom Glucose Reference Range is dependent on time and content of last meal. Glucose of more than 200 mg/dL in a nonstressed, ambulatory subject supports the diagnosisof Diabetes Mellitus.Serum or plasma potassium measurement (moles/volume)Ordered By: Bernabe Cr on 99-14-6406Zjvmzaykh [Moles/Vol]3.3 mmol/L3.5-5.1FOhioHealth Berger Hospitalerum or plasma sodium measurement (moles/volume)Ordered By: Bernabe Cr on 02-87-2620Zqfkpl [Moles/Vol]137 mmol/K762-131JbtswlgjePremier Health Miami [facility] Hospital Southerum or plasma total carbon dioxide measurement (moles/volume) Ordered By: Bernabe Cr on 31-49-5725NO9 [Moles/Vol]23.0 mmol/L 22.0-30.0[facility] Southerum or plasma urea nitrogen measurement (mass/volume)Ordered By: Bernabe Cr on 63-16-3535Aiwz nitrogen [Mass/Vol]21 mg/dL9-23[facility] CenterWBC Auto (Bld) [#/Vol]Ordered By: Bernabe Cr on 94-16-6933NUL (Bld) [#/Vol]8.1 10*3/uL4.1-10.5FTriHealth McCullough-Hyde Memorial HospitalNo Panel InformationOrdered By: Bernabe Cr on 70-01-735581884930-Pusixzr Vitamin D Total15.9 ng/oY54-017 [facility] CenterComment on above:VITAMIN D STATUS 25(OH)VITAMIN D RANGE (ng/mL) Deficient <20 Insufficient 20 to <00Rxiigaheyg91 to 100Reference: Sixto OLIVERA,Federico MATA, Palomo LESLIE, et al. Evaluation,treatment, and prevention of vitamin D deficiency; an Endocrine Society clinical practice guideline. JCEM. 2010; 96(7):1911-30.Vitamin C level0.2 mg/dL0.4-2.0[facility] CenterComment on above:This test was developed and its performance characteristicsdetermined by Labsaint [facility]. It has not been cleared orapproved by the Food and Drug Administration.Vitamin C deficiency is generally defined as plasma orserum concentrations less than 0.2 mg/dL and levels between0.2 and 0.4 mg/dL are considered low.Performed at: [address] [id number] Director: Mamadou Rodriguez MD, Phone: [phone] [Mass/volume] in Serum or PlasmaOrdered By: Taz Barnes on 27-75-8249Hspmyd [Mass/Vol]5.5 ng/mL>5.9[facility] CenterComment on above:Folate reference range: >5.9 ng/mlThe WHO technical consultation on folate and vitamin p15mcjiujtkubtz has determined that folate concentrations lessthan 4 ng/ml are considered deficient.Laboratory - Chemistry and Chemistry - challengeOrdered By: Taz Barnes on 05-20-2022 Cobalamin (Vitamin B12) [Mass/Vol]169 pg/aI662-630HvdreozmyMercy Health Springfield Regional Medical CenterNo Panel InformationOrdered By: Taz Barnes on 80-02-1693Vyp and Parasite Result 1FTriHealth McCullough-Hyde Memorial HospitalOva and Parasite Result 1 [facility] CenterOva or parasites identificationOrdered By: Taz Barnes on 13-15-9293Plw and parasites identified LM Nom (Unsp spec) [facility] and parasites identified LM Nom (Unsp spec) [facility] CenterLaboratory - Chemistry and Chemistry - challengeOrdered By: Janice Gonzalez on 78-72-7972Kmnhrocar [Mass/Vol]1.7 mg/dL 1.6-2.6FTriHealth McCullough-Hyde Memorial HospitalAutomated erythrocytes count in urine sediment (number/area)Ordered By: Taz Barnes on 84-82-1080ECJ Auto (Urine sed) [#/Area]50-100 [HPF]0-4FTriHealth McCullough-Hyde Memorial HospitalAutomated leukocytes count in urine sediment (number/area)Ordered By: Taz Barnes on 41-26-0514LEG Auto (Urine sed) [#/Area]Innumerable [HPF]0-4FTriHealth McCullough-Hyde Memorial HospitalAutomated urine hyaline casts count (number/volume)Ordered By: Taz Barnes on 12-58-1010Ndavxnm casts Auto (U) [#/Vol]None seen [LPF]0-1 [facility] CenterBilirubin Test strip Ql (U)Ordered By: Taz Barnes on 68-60-7529Uoifsnzhd Ql (U)NegativeNegUniversity Hospitals Ahuja Medical CenterCasts typing in urine sediment by light microscopyOrdered By: Taz Barnes on 61-11-2961Qjrdr LM Nom (Urine sed)None seen [LPF]None [facility] CampusColor Auto (U)Ordered By: Taz Barnes on 05-18-2022 Color (U)YellowYellowMercy Health Springfield Regional Medical CenterKetones Auto test strip (U) [Mass/Vol]Ordered By: Taz Barnes on 37-53-5465Hlmcppc (U) [Mass/Vol] NegativeNegUniversity Hospitals Ahuja Medical CenterNitrite Test strip Ql (U) Ordered By: Taz Barnes on 40-91-7389Jcyjjdl Ql (U)NegativeNegUniversity Hospitals Ahuja Medical CenterProtein Auto test strip (U) [Mass/Vol]Ordered By: Taz Barnes on 10-75-8916Egylfdu (U) [Mass/Vol]100 mg/dLNegGalion Community Hospitalpecific gravity Auto test strip (U) [Rel density]Ordered By: Taz Barnes on 07-71-6838Xlnwwouu gravity (U) [Rel density]1.0101.001-1.030 [facility] Southquamous epithelial cells detection in urine sediment by light microscopyOrdered By: Taz Barnes on 71-35-5889Pyluizoeht cells.squamous LM Ql (Urine sed)1-2 [HPF]0-2FTriHealth McCullough-Hyde Memorial Hospital Urine bacteria detection by automated methodOrdered By: Taz Barnes on 72-84-4681Eidnunrw Auto Ql (U)None seenNone [facility] CampusUrine clarity by refractometry automatedOrdered By: Taz Barnes on 75-66-7795Djezvew Refractometry automated (U)TurbidCleAdena Health SystemUrine culture routineOrdered By: Taz Barnes on 05-18-2022 Bacteria identified Cx Nom (U)No Growth 2 DaysMercy Health [facility] Medical Center Bacteria identified Cx Nom (U)No Growth 2 DaysMercy Health [facility] Center Urine glucose measurement by automated test strip (mass/volume)Ordered By: Taz Barnes on 12-72-6137Rkpesgo Auto test strip (U) [Mass/Vol]Normal mg/dL NormalMercy Health Springfield Regional Medical CenterUrine hemoglobin detection by automated test stripOrdered By: Taz Barnes on 77-47-7240Gitjlbnczt Auto test strip Ql (U)2+NegativeMercy Health Springfield Regional Medical CenterUrine leukocyte esterase detection by automated test stripOrdered By: Taz Barnes on 47-97-5248Hmsmvwmtq esterase Auto test strip Ql (U)4+NegativeMercy Health [facility] Medical Center Urobilinogen Auto test strip (U) [Mass/Vol]Ordered By: Taz Barnes on 92-73-9396Ziofojnktxui (U) [Mass/Vol]Normal mg/dLNormalMercy Health Springfield Regional Medical CenterYeast detection in urine sediment by light microscopyOrdered By: Taz Barnes on 74-68-3955Jtvhl LM Ql (Urine sed)None seen [HPF]None Seen [facility] CenterpH Auto test strip (U)Ordered By: Taz Barnes on 52-47-2169aO (U)7.5 [pH]5.0-9.0[facility] CenterActivated partial thromboplastin time (aPTT) in platelet poor plasma by coagulation a Ordered By: Taz Barnes on 02-84-9167hWNZ Coag (PPP) [Time]29.5 s25.1-36.5 [facility] CenterBody fluid albumin measurement (mass/volume) Ordered By: Taz Barnes on 90-14-2134Czycnlx (Body fld) [Mass/Vol]2.9 g/dL 3.2-5.5FTriHealth McCullough-Hyde Memorial HospitalCBC AUTO DIFFon 68-51-3855IQUJ #0.0 103/ulNormal0.0-0.1The [facility] HospitalComment on above:Performed By: #### CBC #### [facility] [address] [address] [address] Karen PierceBasophils/100 WBC (Bld)0.3 %Normal0.2-2.0The [facility] Comment on above:Performed By: #### CBC #### [facility] [address] [place] [address] Dr. Karen Valente #0.1 103/ulNormal0.0-0.7The [facility] HospitalComment on above: Performed By: #### CBC #### [facility] [address] [place] [address] Dr. Karen Reyesosinophils/100 WBC (Bld)0.7 %Critically low0.9-7.0The [facility] HospitalComment on above:Performed By: #### CBC #### [facility] [address] [place] [address] Dr. Karen Reyesrythrocyte distribution width (RBC) [Ratio]14.8 %Braeuf89.0-15.0 The [facility] HospitalComment on above:Performed By: #### CBC #### [facility] [address] [place] [address] Dr. Karen PierceHematocrit (Bld) [Volume fraction]39.4 %Critically low42.0-54.0 The [facility] HospitalComment on above:Performed By: #### CBC #### [facility] [address] [place] [address] Dr. Karen PierceHemoglobin (Bld) [Mass/Vol]12.6 g/dLCritically low14.0-18.0The [facility] HospitalComment on above:Performed By: #### CBC #### [facility] [address] [place] [address] Dr. Karen Ayala #0.04 10e3/ulCritically high0.00-0.03The [facility] Comment on above:Performed By: #### CBC #### [facility] [address] [place] [address] Dr. Karen Ayala %0.4 %Normal0.0-0.5The [facility] HospitalComment on above: Performed By: #### CBC #### [facility] [address] [address] [address] Karen Torres #1.2 103/ulNormal1.2-3.8The [facility] HospitalComment on above:Performed By: #### CBC #### [facility] [address] [address] [address] Karen Kimmphocytes/100 WBC (Bld)11.8 %Critically low20.5-60.0The [facility] HospitalComment on above:Performed By: #### CBC #### [facility] [address] [place] [address] Dr. Karen Figueroa DIFF REQNONormalThe [facility] HospitalComment on above: Performed By: #### CBC #### [facility] [address] [place] [address] Dr. Karen Michael (RBC) [Entitic mass]27.5 ngIhhkrf29.9-34.0The [facility] HospitalComment on above:Performed By: #### CBC #### [facility] [address] [place] [address] Dr. Karen Michael (RBC) [Mass/Vol]32.0 g/rGMlaykl24.9-35.2The [facility] HospitalComment on above:Performed By: #### CBC #### [facility] [address] [place] [address] Dr. Karen Michael (RBC) [Entitic vol]86.0 wYEagqzq42.0-94.0The [facility] HospitalComment on above:Performed By: #### CBC #### [facility] [address] [place] [address] Dr. Karen Monteiro #1.4 103/ulCritically high0.3-0.8The [facility] Comment on above:Performed By: #### CBC #### [facility] [address] [place] [address] Dr. Karen Elizabethocytes/100 WBC (Bld)13.8 %Critically high1.7-12.0The [facility] HospitalComment on above:Performed By: #### CBC #### [facility] [address] [place] [address] Dr. Karen Cronin #7.6 103/ulCritically high1.4-6.5The [facility] Comment on above:Performed By: #### CBC #### [facility] [address] [place] [address] Dr. Karen Bakerutrophils/100 WBC (Bld)73.0 %Boadoi28.0-75.0The [facility] HospitalComment on above:Performed By: #### CBC #### [facility] [address] [place] [address] Dr. Karen Amandalet mean volume (Bld) [Entitic vol]10.6 fLNormal9.5-13.5The [facility] HospitalComment on above:Performed By: #### CBC #### [facility] [address] [place] [address] Dr. Karen PiercePLT193 103/rxRyffci464-767Srw [facility] HospitalComment on above: Performed By: #### CBC #### [facility] [address] [place] [address] Dr. Karen PierceRBC4.58 106/ulCritically low4.70-6.10The [facility] HospitalComment on above:Performed By: #### CBC #### [facility] [address] [place] [address] Dr. Karen PierceWBC10.4 103/ulNormal4.0-11.0The [facility] HospitalComment on above:Performed By: #### CBC #### [facility] [address] [place] [address] Dr. Karen PierceCT ABD/PELVIS WO CONon 52-55-9223ZE ABD/PELVIS WO CONEXAMINATION: CT ABD/PELVIS WO CON HISTORY: Diarrhea COMPARISON: No relevant [...] Electronically authenticated by: LORENZO SCHERER Date: 2022-05-16 09:21[facility] HospitalCULTPEARL [facility] URINEon 40-84-2875CAGBTQX URINECulture Observations: MODERATE GROWTH OF MIXED SKIN JAS. NO POTENTIAL PATHOGENS SEEN.NormalThe [facility] HospitalComment on above:Performed By: #### URTPCR #### [facility] [address] [place] [address] Dr. Karen PierceCovid-19 PCR ([facility])on 82-81-6223UFDA-CoV-2 (COVID-19) RNA KARI+probe Ql (Unsp spec)Not detectedNormalNOT DETECTEDThe [facility] Comment on above:Result Comment: When diagnostic testing is negative, the [...] for this test is supported by the [place] of Health and Human Service's declaration that circumstances exist to justify the emergency use of in vitro diagnostics for the detection and/or diagnosis of the virus that causes COVID-19. This EUA will remain in effect for the duration of the COVID-19 declaration justifying emergency of IVDs, unless it is terminated or revoked by the FDA (after which the test may no longer be used).Performed By: #### UA #### [facility] [address] [place] [address] Dr. Kraen PierceCreatinine [Mass/volume] in UrineOrdered By: Taz Barnes on 66-83-0849Idpvkntbcz (U) [Mass/Vol]68.1 mg/dLMercy Health [facility] Center Comment on above:No reference range establishedER URINE PROFILEon 05-16-2022 Bilirubin Ql (U)NegativeNormalNEGATIVESelect Medical Specialty Hospital - YoungstownComment on above: Performed By: #### URTPCR #### [facility] [address] [place] [address] Dr. Karen PierceClarity (U)CLEARNormalCLEARThe [facility] HospitalComment on above: Performed By: #### URTPCR #### [facility] [address] [address] [address] Karen Parkslor (U)YELLOWNormalYELLOWSelect Medical Specialty Hospital - YoungstownComment on above: Performed By: #### URTPCR #### [facility] [address] [place] [address] Dr. Karen Daigle micrscopic examination will be performed if indicated. NormalThe Atomic City HospitalComment on above:Performed By: #### URTPCR #### [facility] [address] [place] [address] Dr. Karen PierceGlucose Ql (U)NegativeNormalNEGATIVESelect Medical Specialty Hospital - YoungstownComment on above:Performed By: #### URTPCR #### [facility] [address] [place] [address] Dr. Karen PierceHemoglobin Ql (U)MODERATEAbnormalNEGATIVEMercy Health [facility] Hospital on above:Performed By: #### URTPCR #### [facility] [address] [address] [address] Karen Goldenones Ql (U)NegativeNormalNEGATIVESelect Medical Specialty Hospital - YoungstownComment on above:Performed By: #### URTPCR #### [facility] [address] [place] [address] Dr. Karen PierceLEUKOCYTESLARGEAbnormalNEGATIVESelect Medical Specialty Hospital - YoungstownComment on above:Performed By: #### URTPCR #### [facility] [address] [address] [address] Karen PierceNitrite Ql (U)NegativeNormalNEGATIVESelect Medical Specialty Hospital - YoungstownComment on above:Performed By: #### URTPCR #### [facility] [address] [address] [address] Karen PiercepH (U)5.5 [pH]Normal5-9[facility] - YoungstownComment on above: Performed By: #### URTPCR #### [facility] [address] [place] [address] Dr. Karen PierceSPEC GRAVITY<=1.495Borhsvwf2.005-<=1.025The [facility] Comment on above:Performed By: #### URTPCR #### [facility] [address] [address] [address] Karen Lanier PROTEINNegativeNormalNEGATIVE/ TRACEThe [facility] Comment on above:Performed By: #### URTPCR #### [facility] [address] [address] [address] Karen Moulton MICRO INDINDICATEDNormalThe [facility] HospitalComment on above: Performed By: #### URTPCR #### [facility] [address] [address] [address] Karen Wangbilinogen Qn (U)0.2 {Tonio'U}/dLNormal0.2 - 1.0The [facility] HospitalComment on above:Performed By: #### URTPCR #### [facility] [address] [address] [address] Karen PierceGlobulin Calc (S) [Mass/Vol]Ordered By: Taz Barnes on 35-01-1463Dxssprjx (S) [Mass/Vol]3.5 g/dLMercy Health Springfield Regional Medical Center Laboratory - CoagulationOrdered By: Taz Barnes on 82-01-6250VR Coag (PPP) [Time]14.2 s9.0-12.9[facility] CenterPROF 14(COMP METB)on 18-63-2634Bbmgggt [Mass/Vol]3.1 g/dLCritically low3.4-5.0The [facility] Comment on above:Performed By: #### URTPCR #### [facility] [address] [place] [address] Dr. Karen PierceAlbumin/Globulin [Mass ratio]0.7 {ratio}NormalThe [facility] HospitalComment on above:Performed By: #### URTPCR #### [facility] [address] [address] [address] Karen PierceALP [Catalytic activity/Vol]96 U/IZpultq28-803Lij [facility] HospitalComment on above:Performed By: #### URTPCR #### [facility] [address] [address] [address] Karen RamirezT [Catalytic activity/Vol]46 U/BCqweqh29-98Dcz [facility] HospitalComment on above:Performed By: #### URTPCR #### [facility] [address] [address] [address] Karen PierceAnion gap [Moles/Vol]19.7 mmol/LNormalThe [facility] Comment on above:Performed By: #### URTPCR #### [facility] [address] [address] [address] Karen PierceAST [Catalytic activity/Vol]21 U/XWjacmp49-82Tnn [facility] HospitalComment on above:Performed By: #### URTPCR #### [facility] [address] [place] [address] Dr. Karen PierceBilirubin [Mass/Vol]0.3 mg/dLNormal0.2-1.0The [facility] Comment on above:Performed By: #### URTPCR #### [facility] [address] [address] [address] Karen PierceCalcium [Mass/Vol]8.9 mg/dLNormal8.5-10.1[facility] Comment on above:Performed By: #### URTPCR #### [facility] [address] [address] [address] Karen PierceChloride [Moles/Vol]101 mmol/NTfwjor99-166Ubb [facility] Comment on above:Performed By: #### URTPCR #### [facility] [address] [address] [address] Karen PierceCO2 [Moles/Vol]18.3 mmol/LCritically low21.0-32.0The [facility] HospitalComment on above:Performed By: #### URTPCR #### [facility] [address] [address] [address] Karen PierceCreatinine [Mass/Vol]8.99 mg/dLCritically high0.70-1.30The [facility] HospitalComment on above:Performed By: #### URTPCR #### [facility] [address] [address] [address] Karen ReyesGFR-AF AMERICAN7 mL/min/1.87o3Njgjbswlyt low>=60The [facility] HospitalComment on above:Performed By: #### URTPCR #### [facility] [address] [address] [address] Karen ReyesGFR-NON AF AMERICAN6 mL/min/1.03g8Kdfanpdsxe low>=60The [facility] HospitalComment on above:Performed By: #### URTPCR #### [facility] [address] [address] [address] Karen PierceGlobulin (S) [Mass/Vol]4.7 g/dLNormalThe [facility] HospitalComment on above:Performed By: #### URTPCR #### [facility] [address] [address] [address] Karen PierceGlucose [Mass/Vol]110 mg/dLCritically jkbu89-191Mvw [facility] HospitalComment on above:Performed By: #### URTPCR #### [facility] [address] [address] [address] Karen PiercePotassium [Moles/Vol]5.0 mmol/LNormal3.5-5.1The [facility] Comment on above:Performed By: #### URTPCR #### [facility] [address] [address] [address] Karen PierceProtein [Mass/Vol]7.8 g/dLNormal6.4-8.2The [facility] Comment on above:Performed By: #### URTPCR #### [facility] [address] [address] [address] Karen PierceSodium [Moles/Vol]134 mmol/LCritically zmj120-794Iqr [facility] HospitalComment on above:Performed By: #### URTPCR #### [facility] [address] [address] [address] Karen PierceUrea nitrogen [Mass/Vol]129.0 mg/dLCritically high7.0-18.0The [facility] HospitalComment on above:Performed By: #### URTPCR #### [facility] [address] [address] [address] Karen PierceUrea nitrogen/Creatinine [Mass ratio]14.3 mg/mgNormalThe [facility] HospitalComment on above:Performed By: #### URTPCR #### [facility] [address] [address] [address] Karen PiercePlatelet poor plasma international normalized ratio (INR) by coagulation assay (relatOrdered By: Taz Barnes on 74-66-5598FHL Coag (PPP) [Relative time]1.3 {INR}[facility] CenterComment on above:INR Therapeutic Range A) Pre- and Peroperative OAT started two weeks before surgery. NOT HIP SURGERY: 1.5 - 2.5 HIP SURGERY: 2 - 3B) Primary and secondary prevention of venous THROMBOSIS: 2 - 3C) Active venous thrombosis, pulmonary embolismand prevention of recurrent venous thrombosis: 2 - 3D) Prevention of arterial thromboembolismincluding patients with mechanical heart valves: 3 - 4.5Protein [Mass/volume] in Serum or PlasmaOrdered By: Taz Barnes on 72-48-1780Rfjkoks [Mass/Vol]6.4 g/dL6.1-7.9[facility] Southerum or plasma alanine aminotransferase measurement without P-5'-P (enzymatic activiOrdered By: Taz Barnes on 95-39-6248XCD No additional P-5'-P [Catalytic activity/Vol]38 U/F03-55HcwgwogxtPremier Health [facility] Southerum or plasma albumin/globulin mass ratioOrdered By: Taz Barnes on 47-41-1761Unddbup/Globulin [Mass ratio]0.8 {ratio}[facility] Southerum or plasma alkaline phosphatase measurement (enzymatic activity/volume)Ordered By: Taz Barnes on 05-16-2022 ALP [Catalytic activity/Vol]78 U/U16-80QwzyrpelaPremier Health [facility] Hospital Southerum or plasma aspartate aminotransferase measurement (enzymatic activity/volume)Ordered By: Taz Barnes on 07-48-0060JLM [Catalytic activity/Vol]19 U/W86-31TwqzvqoggPrem[facility] Health [facility] Southerum or plasma total bilirubin measurement (mass/volume) Ordered By: Taz Barnes on 21-23-3378Psteeabiz [Mass/Vol]0.4 mg/dL0.3-1.2 [facility] Medical CenterURINE MICROSCOPIC ONLYon 70-50-1624KOUZLAIU SMALLAbnormalNONE SEENKettering Health Hamilton on above:Performed By: #### URTPCR #### [facility] [address] [address] [address] Karen Hunt identified Cx Nom (U)INDICATEDHenry County Hospital on above:Performed By: #### URTPCR #### [facility] [address] [place] [address] Dr. Karen Patterson SEENNormalNONE SEENKettering Health Hamilton on above:Performed By: #### URTPCR #### [facility] [address] [place] [address] Dr. Karen Yusufystals LM Nom (Urine sed)NONE SEENNormalNONE SEENKettering Health Hamilton on above:Performed By: #### URTPCR #### [facility] [address] [address] [address] Karen Reyespithelial cells LM Ql (Urine sed)NONE SEENNormalNONE SEEN /RARE [facility]Com[facility] [place] on above:Performed By: #### URTPCR #### [facility] [address] [place] [address] Dr. Karen Chan SEENNormalNONE SEENK[facility]tering Health [facility] on above:Performed By: #### URTPCR #### [facility] [address] [address] [address] Karen SanchezUfoleRBX73-92Dghkostq5-2FucKettering Health Hamilton on above: Performed By: #### URTPCR #### [facility] [address] [place] [address] Dr. Karen PierceWBC (U) [#/Vol]/uLAbnormalNONE SEENThe [facility] HospitalComment on above:Performed By: #### URTPCR #### [facility] [address] [address] [address] Karen Vázquez sodium measurement (moles/volume)Ordered By: Taz Barnes on 32-04-4826Gwbdqb (U) [Moles/Vol]42.0 mmol/LFTriHealth [facility] Comment on above:No reference range establishedXR ABD FLAT_UPon 75-49-5268CH ABD FLAT_UPEXAMINATION: XR ABD FLAT_UP HISTORY: Fatigue , diarrhea [...] Electronically authenticated by: LORENZO SCHERER Date: 2022-05-16 09:25NoThe [facility] AUTO DIFFon 86-33-8620EIRM #0.0 103/ulNormal0.0-0.1[facility] on above:Performed By: #### UA #### [facility] [address] [address] [address] Karen PierceBasophils/100 WBC (Bld)0.3 %Normal0.2-2.0[facility] Comment on above:Performed By: #### UA #### [facility] [address] [address] [address] Karen Valente #0.1 103/ulNormal0.0-0.7The [facility] HospitalComascension macomb on above: Performed By: #### UA #### [facility] [address] [address] [address] Karen Reyesosinophils/100 WBC (Bld)0.7 %Critically low0.9-7.0The [facility] HospitalComment on above:Performed By: #### UA #### [facility] [address] [place] [address] Dr. Karen Reyesrythrocyte distribution width (RBC) [Ratio]14.9 %Xeucfo99.0-15.0 [facility]stownComment on above:Performed By: #### UA #### [facility] [address] [place] [address] Dr. Karen PierceHematocrit (Bld) [Volume fraction]39.8 %Critically low42.0-54.0 The [facility] HospitalComment on above:Performed By: #### UA #### [facility] [address] [place] [address] Dr. Karen PierceHemoglobin (Bld) [Mass/Vol]12.7 g/dLCritically low14.0-18.0[facility]stownComment on above:Performed By: #### UA #### [facility] [address] [place] [address] Dr. Karen Ayala #0.06 10e3/ulCritically high0.00-0.03[facility] Comment on above:Performed By: #### UA #### [facility] [address] [place] [address] Dr. Karen Ayala %0.5 %Normal0.0-0.5The [facility] HospitalComascension macomb on above: Performed By: #### UA #### [facility] [address] [place] [address] Dr. Karen BrandtH #0.9 103/ulCritically low1.2-3.8The [facility] Comment on above:Performed By: #### UA #### [facility] [address] [place] [address] Dr. Karen Kimmphocytes/100 WBC (Bld)7.1 %Critically low20.5-60.0[facility] YoungstownComment on above:Performed By: #### UA #### [facility] [address] [place] [address] Dr. Karen GarzaUAL DIFF REQNONormalThe [facility] HospitalComment on above: Performed By: #### UA #### [facility] [address] [address] [address] Karen Michael (RBC) [Entitic mass]27.7 znDwrtzc10.9-34.0The [facility] HospitalComment on above:Performed By: #### UA #### [facility] [address] [address] [address] Karen Michael (RBC) [Mass/Vol]31.9 g/tGPawcpe31.9-35.2The [facility] HospitalComment on above:Performed By: #### UA #### [facility] [address] [address] [address] Karen Michael (RBC) [Entitic vol]86.7 oTZlpbsw93.0-94.0The [facility] HospitalComment on above:Performed By: #### UA #### [facility] [address] [place] [address] Dr. Karen Monteiro #1.0 103/ulCritically high0.3-0.8[facility] Comment on above:Performed By: #### UA #### [facility] [address] [place] [address] Dr. Karen Elizabethocytes/100 WBC (Bld)8.5 %Normal1.7-12.0[facility] Comment on above:Performed By: #### UA #### [facility] [address] [address] [address] Karen Cronin #9.9 103/ulCritically high1.4-6.5Th[facility] Comment on above:Performed By: #### UA #### [facility] [address] [address] [address] Karen Bakerutrophils/100 WBC (Bld)82.9 %Critically high43.0-75.0The [facility] HospitalComment on above:Performed By: #### UA #### [facility] [address] [address] [address] Karen Burkett mean volume (Bld) [Entitic vol]9.7 fLNormal9.5-13.5The [facility] HospitalComment on above:Performed By: #### UA #### [facility] [address] [place] [address] Dr. Karen PiercePLT206 103/yfOdmbwf084-239Vst [facility] HospitalComment on above: Performed By: #### UA #### [facility] [address] [place] [address] Dr. Karen PierceRBC4.59 106/ulCritically low4.70-6.10The [facility] HospitalComment on above:Performed By: #### UA #### [facility] [address] [place] [address] Dr. Karen PierceWBC11.9 103/ulCritically high4.0-11.0The [facility] HospitalComment on above:Performed By: #### UA #### [facility] [address] [place] [address] Dr. Karen PierceLIPASEon 82-61-7381Qqztoi [Catalytic activity/Vol]340.0 U/LNormal 73.0-393.0The [facility] HospitalComment on above:Performed By: #### UA #### [facility] [address] [place] [address] Dr. Karen Leos 14(COMP METB)on 40-95-2936Whdikby [Mass/Vol]3.1 g/dL Critically low3.4-5.0The [facility] HospitalComment on above:Performed By: #### UA #### [facility] [address] [place] [address] Dr. Karen PierceAlbumin/Globulin [Mass ratio]0.7 {ratio}NormalThe [facility] HospitalComment on above:Performed By: #### UA #### [facility] [address] [place] [address] Dr. Karen Murillo [Catalytic activity/Vol]105 U/EEssdnz15-528Zwe [facility] HospitalComment on above:Performed By: #### UA #### [facility] [address] [place] [address] Dr. Yilan ChangALT [Catalytic activity/Vol]49 U/EWtueng44-49Czu [facility] HospitalComment on above:Performed By: #### UA #### [facility] [address] [place] [address] Dr. Karen Landon gap [Moles/Vol]18.4 mmol/LNormalThe [facility] Comment on above:Performed By: #### UA #### [facility] [address] [address] [address] Karen PierceAST [Catalytic activity/Vol]20 U/DTlhvqw52-65Llg [facility] HospitalComment on above:Performed By: #### UA #### [facility] [address] [place] [address] Dr. Karen PierceBilirubin [Mass/Vol]0.3 mg/dLNormal0.2-1.0The [facility] Comment on above:Performed By: #### UA #### [facility] [address] [place] [address] Dr. Karen PierceCalcium [Mass/Vol]9.1 mg/dLNormal8.5-10.1The [facility] Comment on above:Performed By: #### UA #### [facility] [address] [place] [address] Dr. Karen PierceChloride [Moles/Vol]103 mmol/OCufvxt54-364Ysy [facility] Comment on above:Performed By: #### UA #### [facility] [address] [place] [address] Dr. Karen PierceCO2 [Moles/Vol]20.1 mmol/LCritically low21.0-32.0The [facility] HospitalComment on above:Performed By: #### UA #### [facility] [address] [place] [address] Dr. Karen PierceCreatinine [Mass/Vol]9.58 mg/dLCritically high0.70-1.30The [facility] HospitalComment on above:Performed By: #### UA #### [facility] [address] [address] [address] Jones ChangEGFR-AF AMERICAN6 mL/min/1.39c1Jjhviyzuuy low>=60The [facility] HospitalComment on above:Performed By: #### UA #### [facility] [address] [place] [address] Dr. Karen ReyesGFR-NON AF AMERICAN5 mL/min/1.91y1Rmxoexledm low>=60The [facility] HospitalComment on above:Performed By: #### UA #### [facility] [address] [address] [address] Karen PierceGlobulin (S) [Mass/Vol]4.6 g/dLNormalThe [facility] HospitalComment on above:Performed By: #### UA #### [facility] [address] [place] [address] Dr. Karen PierceGlucose [Mass/Vol]114 mg/dLCritically vsut99-092Oob [facility] HospitalComment on above:Performed By: #### UA #### [facility] [address] [place] [address] Dr. Karen PiercePotassium [Moles/Vol]5.5 mmol/LCritically high3.5-5.1The [facility] HospitalComment on above:Performed By: #### UA #### [facility] [address] [place] [address] Dr. Karen PierceProtein [Mass/Vol]7.7 g/dLNormal6.4-8.2The [facility] Comment on above:Performed By: #### UA #### [facility] [address] [place] [address] Dr. Karen PierceSodium [Moles/Vol]136 mmol/RLckndw684-678Amw [facility] Comment on above:Performed By: #### UA #### [facility] [address] [place] [address] Dr. Karen PierceUrea nitrogen [Mass/Vol]134.0 mg/dLCritically high7.0-18.0The [facility] HospitalComment on above:Performed By: #### UA #### [facility] [address] [place] [address] Dr. Karen PierceUrea nitrogen/Creatinine [Mass ratio]14.0 mg/mgNormalThe [facility] HospitalComment on above:Performed By: #### UA #### [facility] [address] [address] [address] Karen PiercePROF CHEM 8 (BAS METB)on 10-43-8448Albsu gap [Moles/Vol]12.6 mmol/LNormalThe [facility] HospitalComment on above:Performed By: #### BMP #### [facility] [address] [address] [address] Karen PierceCalcium [Mass/Vol]8.7 mg/dLNormal8.5-10.1The [facility] Comment on above:Performed By: #### BMP #### [facility] [address] [place] [address] Dr. Karen PierceChloride [Moles/Vol]103 mmol/BLxpkwo70-245Jex [facility] Comment on above:Performed By: #### BMP #### [facility] [address] [place] [address] Dr. Karen PierceCO2 [Moles/Vol]27.3 mmol/RTfuwsz03.0-32.0The [facility] Comment on above:Performed By: #### BMP #### [facility] [address] [place] [address] Dr. Karen PierceCreatinine [Mass/Vol]1.26 mg/dLNormal0.70-1.30The [facility] HospitalComment on above:Performed By: #### BMP #### [facility] [address] [place] [address] Dr. Karen ReyesGFR-AF SALVADOREAN>60Normal>=60The [facility] HospitalComment on above:Performed By: #### BMP #### [facility] [address] [place] [address] Dr. Karen ReyesGFR-NON AF SPWLJDFL32 mL/min/1.59c5Ffrhzonqcl low>=60The [facility] HospitalComment on above:Performed By: #### BMP #### [facility] [address] [place] [address] Dr. Yilan ChangGlucose [Mass/Vol]111 mg/dLCritically rafn90-556Gpg [facility] HospitalComment on above:Performed By: #### BMP #### [facility] [address] [address] [address] Karen PiercePotassium [Moles/Vol]3.9 mmol/LNormal3.5-5.1[facility] Comment on above:Performed By: #### BMP #### [facility] [address] [address] [address] Karen PierceSodium [Moles/Vol]139 mmol/XLfetqe366-597Fjl [facility] Comment on above:Performed By: #### BMP #### [facility] [address] [address] [address] Karen PierceUrea nitrogen [Mass/Vol]21.0 mg/dLCritically high7.0-18.0[facility]stownComment on above:Performed By: #### BMP #### [facility] [address] [address] [address] Karen Kennedy nitrogen/Creatinine [Mass ratio]16.7 mg/mgNoalThMemorial HospitalComment on above:Performed By: #### BMP #### [facility] [address] [address] [address] Karen PierceComprehensive Metabolic Panelon 61-51-7273Toslaik [Mass/Vol]4.5 g/dLNormal3.6-5.1[facility] SpecialistComment on above:Performed By: #### CMP, LIPD #### [facility] [address], [place] [id number]/Globulin [Mass ratio]2.0 {ratio}Normal1.0-2.5[facility] SpecialistComment on above:Performed By: #### CMP, LIPD #### [facility] [address], [place] [id number] [Catalytic activity/Vol]97 U/YScslhk24-080Hhaffbyc [facility] Memorial HospitalComment on above:Performed By: #### CMP, LIPD #### [facility] [address], [place] [id number] [Catalytic activity/Vol]18 U/LNormal9-46NortMercy Health SpecialistComment on above:Result Comment: 04/25/2021 Female reference range changed.Performed By: #### CMP, LIPD #### [facility] [address] [facility] [place] [id number] gap [Moles/Vol]17 mmol/RYhzyxp22-20Xjxgmvhf [facility] SpecialistComment on above:Result Comment: Effective 05/31/2019 reference range changed.Performed By: #### CMP, LIPD #### [facility] [address] [facility], [place] [id number] [Catalytic activity/Vol]15 U/ITbfowq12-50Kqhuxnhe [facility] SpecialistComment on above:Performed By: #### CMP, LIPD #### [facility] [address] [facility], [place] [id number] [Mass/Vol]0.55 mg/dLNormal0.30-1.20NortMercy Health SpecialistComment on above:Performed By: #### CMP, LIPD #### [facility] [address] [place], [place] [id number]/CREA17 RatioNormal6-22NortMercy HealthSales Operations Lead Comment on above:Performed By: #### CMP, LIPD #### [facility] [address] [place], [place] [id number] [Mass/Vol]9.8 mg/dLNormal8.6-10.2[facility] SpecialistComment on above:Performed By: #### CMP, LIPD #### [facility] [address] [facility], [place] [id number] [Moles/Vol]106 mmol/AXaqozr84-725Kumenhxm [facility] SpecialistComment on above:Performed By: #### CMP, LIPD #### [facility] [address] [facility], [place] [id number] [Moles/Vol]23 mmol/IWaoldb71-44Fdlnbmbg [facility] SpecialistComment on above:Performed By: #### CMP, LIPD #### [facility] [address] [place], [place] [id number] [Mass/Vol]1.2 mg/dLNormal0.7-1.4[facility] SpecialistComment on above:Performed By: #### CMP, LIPD #### [facility] [address] [place], [place] [id number] mL/min/1.93l8Knmqry>60[facility] SpecialistComment on above:Performed By: #### CMP, LIPD #### [facility] [address] [place], [place] [id number] mL/min/1.59n2Iit>60[facility] Specialist Comment on above:Performed By: #### CMP, LIPD #### [facility] [address] [place], [place] [id number] (S) [Mass/Vol]2.3 g/dLNormal1.9-3.7NortMercy Health SpecialistComment on above:Performed By: #### CMP, LIPD #### [facility] [address] [place], [place] [id number] [Mass/Vol]105 mg/hDNeif32-89Jptoidjj [facility] SpecialistComment on above:Result Comment: For FASTING Glucose --- ADA reference ranges: Normal 65-99 mg/dl Prediabetes 100-125 Diabetes >/= 126Performed By: #### CMP, LIPD #### [facility] [address] [place], [place] [id number] [Moles/Vol]4.1 mmol/LNormal3.5-5.5[facility] SpecialistComment on above:Performed By: #### CMP, LIPD #### [facility] [address] [place], [place] [id number] [Mass/Vol]6.8 g/dLNormal6.1-8.1[facility] SpecialistComment on above:Performed By: #### CMP, LIPD #### [facility] [address] [place], [place] [id number] [Moles/Vol]142 mmol/RWkbrtj565-201Ltbgseja [facility] SpecialistComment on above:Performed By: #### CMP, LIPD #### [facility] [address] [place], [place] [id number] nitrogen [Mass/Vol]20 mg/dLNormal7-25No[facility] SpecialistComment on above:Performed By: #### CMP, LIPD #### [facility] [address] [place], [place] [id number] Panelon [id number] [Mass/Vol]109 mg/dLLow 125-200[facility] SpecialistComment on above:Result Comment: Low risk < 200mg/dL Borderline risk 201-239 mg/dl High risk > or equal to 240Performed By: #### CMP, LIPD #### [facility] [address] [place], [place] [id number] in HDL [Mass/Vol]30 mg/dLLow>40[facility] SpecialistComment on above:Result Comment: High Cardiovascular Risk HDL <40 mg/dL Low Cardiovascular Risk HDL > or equal to 60 mg/dlPerformed By: #### CMP, LIPD #### [facility] [address] [place], [place] [id number] in LDL [Mass/Vol]54 mg/dLNormMer[facility] SpecialistComment on above:Result Comment: LDL ATP III CLASSIFICATION LDL less than 100 mg/dl Optimal LDL 100-129 mg/dl Near or above optimal LDL 130-159 Borderline high LDL 160-189 High LDL greater than 189 mg/dl Very HighPerformed By: #### CMP, LIPD #### [facility] [address] [place], [place] [id number] in VLDL [Mass/Vol]25 mg/dLNoOhioHealth [facility] SpecialistComment on above:Performed By: #### CMP, LIPD #### [facility] [address] [place], [place] [id number].total/Cholesterol in HDL [Mass ratio]4 {ratio} NormalP[facility] SpecialistComment on above:Performed By: #### CMP, LIPD #### [facility] [address] [place], [place] [id number] [Mass/Vol]126 mg/dGBvjcxg84-284Wapvfkga [facility] SpecialistComment on above:Result Comment: TRIG ATPIII CLASSIFICATIONS TRIG less than 150 mg/dl Normal TRIG 150-199 mg/dl Borderline High TRIG 200-500 mg/dl High TRIG greather than 500 mg/dl Very HighPerformed By: #### CMP, LIPD #### [facility] [address] [place], [place] [id number] Vital Signs Date TimeVital SignValuePerforming YqgkoegxsAmlxuqzk84-90-9687 14:24-0400Body osijtn490.96 cmEharmony Emerson MD Work Phone: 1(425)[address]10-15-2025 14:24-0400 Body mass index (BMI) [Ratio]24.7 kg/c0GcijcxtSanley Emerson MD Work Phone: 1(353)[address]10-15-2025 14:24-0400 Body fwkiye05.2 kgStanley Emerson MD Work Phone: 1(527)977-[facility]10-15-2025 14:24-0400 Diastolic blood wkiqatad42 mm[Hg]Stanley Emerson MD Work Phone: [facility]10-15-2025 14:24-0400 Heart rate60 /Fior Emerson MD Work Phone: 1(765)292-[address] [place], [place] [address]830110-15-2025 14:24-0400 Respiratory rate16 /Fior Emerson MD Work Phone: 1(349)72173 [address]10-15-2025 14:24-0400 SaO2% (BldA) [Mass fraction]96 %Stanley Emerson MD Work Phone: 1(141)[address]10-15-2025 14:24-0400 Systolic blood yawzfiwf046 mm[Hg]Stanley Emerson MD Work Phone: 1(567)[address] [place], [place] 8593906-11-2025 15:54-0400 Body gavztw773.96 cmEharmony Emerson MD Work Phone: 1(468)[address] [place], [place] 8593906-11-2025 15:54-0400 Body mass index (BMI) [Ratio]25.7 kg/f9MplmoiStanley Emerson MD Work Phone: 1(254)[address] [place], [place] 8593906-11-2025 15:54-0400 Body aobjkw65.77 kgStanley Emerson MD Work Phone: 1(043)[address] [place], [place] 8593906-11-2025 15:54-0400 Diastolic blood atwdkzqv84 mm[Hg]Stanley Emerson MD Work Phone: 1(566)[address] [place], [place] 8593906-11-2025 15:54-0400 Heart rate66 /Fior Emerson MD Work Phone: 1(352)[address] [place], [place] 8593906-11-2025 15:54-0400 Respiratory rate16 /Foir Emerson MD Work Phone: 1(675)[address] [place], [place] 8593906-11-2025 15:54-0400 SaO2% (BldA) [Mass fraction]99 %Stanley Emerson MD Work Phone: 1(542)[address] [place], [place] 8593906-11-2025 15:54-0400 Systolic blood fgbqadnw85 mm[Hg]Stanley Emerson MD Work Phone: 1(076)[address] [place], [place] 8593905-22-2025 15:01-0400 Diastolic blood onweeban37 mm[Hg]Stanley Emerson MD Work Phone: 1(275)[address] [place], [place] 4265305-22-2025 15:01-0400Systolic blood mm[Hg]Stanley Emerson MD Work Phone: 1(951)[address] [place], [place] 4265305-19-2025 17:50-0400Diastolic blood mm[Hg]Stanley Emerson MD Work Phone: 1(844)[address] [place], [place] [address]593905-19-2025 17:50-0400 Heart rate66 /Fior Emerson MD Work Phone: 1(305)655-[facility]05-19-2025 17:50-0400 Respiratory rate20 /Fior Emerson MD Work Phone: 1(221)[address]05-19-2025 17:50-0400 SaO2% (BldA) [Mass fraction]95 %Stanley Emerson MD Work Phone: 1(090)465-[address] [place], [place] [address]0105-19-2025 17:50-0400 Systolic blood bcxysrvl226 mm[Hg]Stanley Emerson MD Work Phone: 1(078)[address]05-19-2025 14:20-0400 Body octgwwkpmnr60.6 [degF]Stanley Emerson MD Work Phone: 1(790)64[address]05-19-2025 13:50-0400 Inhaled oxygen flow rate2 L/Fior Emerson MD Work Phone: 1(321)[address] [place], [place] 8593905-19-2025 12:16-0400 Body oquvpz195.96 cmEharmony Emerson MD Work Phone: 1(091)[address]05-19-2025 12:16-0400 Body .26 kgStanley Emerson MD Work Phone: 1(979)[address]05-16-2025 14:43-0400 Body pkmtca374 cmRuby Montana MD Work Phone: [facility]05-16-2025 14:43-0400 Body mass index (BMI) [Ratio]25.68 kg/m2Ruby Montana MD Work Phone: [facility]05-16-2025 14:43-0400 Body dhfujf64.72 kgRuby Montana MD Work Phone: [facility]05-16-2025 14:43-0400 Diastolic blood wnifnqhh60 mm[Hg]Ruby Montana MD Work Phone: [facility]05-16-2025 14:43-0400 Heart rate75 /Tevin Montana MD Work Phone: [facility]05-16-2025 14:43-0400 Systolic blood gchulhwq49 mm[Hg]Ruby Montana MD Work Phone: [facility]05-13-2025 08:35-0400 Diastolic blood xmrruqbj88 mm[Hg]Julio Cesar Gaspar MD Work Phone: [facility]05-13-2025 08:35-0400Heart rate66 /minJulio Cesar Gaspar MD Work Phone: [facility]05-13-2025 08:35-0400Systolic blood iiumtygb658 mm[Hg]Julio Cesar Gaspar MD Work Phone: [facility]05-13-2025 07:05-0400Body ijyeihigmmh61.1 [degF]Julio Cesar Gaspar MD Work Phone: [facility]05-13-2025 07:05-0400 Respiratory rate18 /minJulio Cesar Gaspar MD Work Phone: [facility]05-13-2025 07:05-6165VhL7% (BldA) [Mass fraction]94 %Julio Cesar Gaspar MD Work Phone: [facility]05-10-2025 16:30-0400Body Milly Gaspar MD Work Phone: [facility]05-10-2025 16:30-0400Body mass index (BMI) [Ratio]22.47 kg/t9DfymvaJulio Cesar Gaspar MD Work Phone: [facility]05-10-2025 16:30-0400Body yjlnhn53.38 kgJulio Cesar Gaspar MD Work Phone: [facility]05-01-2025 09:38-0400Body tmdbuparyav62.6 [degF][facility]05-01-2025 09:38-0400 Diastolic blood iwurxycz28 mm[Hg][facility]05-01-2025 09:38-0400Heart rate72 /[facility]05-01-2025 09:38-0400Respiratory rate16 /[facility]05-01-2025 09:38-8836VbK3% (BldA) [Mass fraction]98 %[facility] 09-23-2024 09:38-0400Systolic blood lepvysau043 mm[Hg][facility]04-29-2025 14:08-0400Body cmEdludy Emerson MD Work Phone: [facility] CenterKtgvqtryxi29-99-6529 14:08-0400Body mass index (BMI) [Ratio]26.06 kg/g5QayqvgStanley Emerson MD Work Phone: [facility] CenterDomextnjpp74-03-5934 14:08-0400Body exnkrs11.08 kgStanley Emerson MD Work Phone: [facility] CenterDybqafwsby08-14-2116 09:40-0400Body rjjloh573 cm Teo Al MD Work Phone: [facility]04-18-2025 09:40-0400 Body mass index (BMI) [Ratio]26.32 kg/f0QfmakeTeo Al MD Work Phone: [facility]04-18-2025 09:40-0400 Body uokhyl83.99 kgTeo Al MD Work Phone: [facility]04-18-2025 09:40-0400 Diastolic blood eeirjior78 mm[Hg]Teo Al MD Work Phone: [facility]04-18-2025 09:40-0400 Heart rate68 /Lyle Al MD Work Phone: 1(796)[address]04-18-2025 09:40-0400 Systolic blood mm[Hg]Teo Al MD Work Phone: 1(440)414-[address] [place], [place] 6408003-19-2025 10:26-0400 Body klajfy752.96 cmEharmony Emerson MD Work Phone: 1(464)[address]03-19-2025 10:26-0400 Body mass index (BMI) [Ratio]26.1 kg/h9YibmcnStanley Emerson MD Work Phone: 1(966)[address]03-19-2025 10:26-0400 Body .19 kgStanley Emerson MD Work Phone: 1(216)[address]03-19-2025 10:26-0400 Diastolic blood csuilhqh14 mm[Hg]Stanley Emerson MD Work Phone: 1(058)[address]03-19-2025 10:26-0400 Heart rate65 /Fior Emerson MD Work Phone: 1(926)[address]03-19-2025 10:26-0400 Respiratory rate16 /Fior Emerson MD Work Phone: 1(592)[address]03-19-2025 10:26-0400 SaO2% (BldA) [Mass fraction]97 %Stanley Emerson MD Work Phone: 1(561)[address]03-19-2025 10:26-0400 Systolic blood dhrecmel952 mm[Hg]Stanley Emerson MD Work Phone: 1(472)646-[address] [place], [place] [address]0103-06-2025 11:13-0500 Body zwokzq131 cmTeo Al MD Work Phone: 0(107)230-30[facility]03-06-2025 11:13-0500 Body mass index (BMI) [Ratio]26.19 kg/c8QyahgbTeo Al MD Work Phone: 5(559)878-01[facility]03-06-2025 11:13-0500 Body artrnv80.53 kgTeo Al MD Work Phone: [facility]03-06-2025 11:13-0500 Diastolic blood zyszfqsc68 mm[Hg]Teo Al MD Work Phone: [facility]03-06-2025 11:13-0500 Heart rate67 /minTeo Al MD Work Phone: [facility]03-06-2025 11:13-0500 Systolic blood mvoqrwtx67 mm[Hg]Teo Al MD Work Phone: [facility]02-20-2025 10:31-0500 Blood Pressure LocationJENNJASON JOSSELIN [facility]02-20-2025 10:31-0500Diastolic blood gtswpkka12 mm[Hg]HEATHER JOSSELIN [facility]02-20-2025 10:31-0500Heart rate68 /minJENNIFER JOSSELIN [facility]02-20-2025 10:31-0500Respiratory rate18 /minJENNIFER JOSSELIN [facility]02-20-2025 10:31-0500Systolic blood qshvobba57 mm[Hg]HEATHER JOSSELIN [facility]12-27-2024 09:47-0500Body uqqpgm679 cmTeo Al MD Work Phone: [facility]12-27-2024 09:47-0500 Body mass index (BMI) [Ratio]26.58 kg/s7RbazgaTeo Al MD Work Phone: [facility]12-27-2024 09:47-0500 Body oyewsp18.89 kgTeo Al MD Work Phone: [facility]12-27-2024 09:47-0500 Diastolic blood hnqecqcz55 mm[Hg]Teo Al MD Work Phone: [facility]12-27-2024 09:47-0500 Heart rate80 /minTeo Al MD Work Phone: [facility]12-27-2024 09:47-0500 Systolic blood mm[Hg]Teo Al MD Work Phone: [facility]12-19-2024 14:38-0500 Body gdopue406 cmEdludy Emerson MD Work Phone: [facility] CenterRxrlziytrk34-45-7373 14:38-0500Body mass index (BMI) [Ratio]26.06 kg/p6HfzwddStanley Emerson MD Work Phone: [facility] CenterPvedjfqeli47-36-5963 14:38-0500Body hmxony59.08 kgStanley Emerson MD Work Phone: [facility] CenterVuzmsldnwh14-15-9840 14:38-0500Diastolic blood taizniiu65 mm[Hg]Stanley Emerson MD Work Phone: [facility] CenterLbwicbfvag54-79-1913 14:38-0500Heart rate77 /min Stanley Emerson MD Work Phone: [facility] CenterQvrvpctuwh80-31-8152 14:38-1644OmN2% (BldA) [Mass fraction]97 %Stanley Emerson MD Work Phone: [facility] CenterQimgyqbmwl22-79-1882 14:38-0500Systolic blood minlzjma126 mm[Hg]Stanley Emerson MD Work Phone: [facility] CenterWfnlnvxlie96-73-7550 11:14-0500Blood Pressure Jason SAMUELS [facility] [place] 676501-12-2024 11:14-0500Diastolic blood dtuuoibl72 mm[Hg]Katia SAMUELS [facility] [place] 676501-12-2024 11:14-0500Heart rate79 /minKatia SAMUELS [facility] [place] 676501-12-2024 11:14-0500Systolic blood xvectkfe417 mm[Hg]Katia SAMUELS [facility] [place] 676500-24-2024 11:18-0400Body cmEdludy Emerson MD Work Phone: 1(380)[address] [place], [place] 4265310-24-2024 11:18-0400Body mass index (BMI) [Ratio]28.63 kg/z0PzyfbnStanley Emerson MD Work Phone: 1(279)[address] [place], [place] 4265310-24-2024 11:18-0400Body zgfiat778.15 kgStanley Emerson MD Work Phone: 1(175)[address] [place], [place] 4265310-24-2024 11:18-0400Heart rate82 /min Stanley Emerson MD Work Phone: 1(331)[address] [place], [place] 4265310-24-2024 11:18-0514NzN9% (BldA) [Mass fraction]97 %Stanley Emerson MD Work Phone: 1(320)[address] [place], [place] 4265310-14-2024 12:45-0400Body nhrult052.96 cmMD Stanley Emerson Work Phone: 1(945)[address] [place], [place] 8593910-14-2024 12:45-0400 Body mass index (BMI) [Ratio]25.6 kg/m2MD Stanley Emerson Work Phone: 1(696)[address] [place], [place] 8593910-14-2024 12:45-0400 Body dvorfmgofae84.3 [degF]MD Stanley Emerson Work Phone: 1(809)[address] [place], [place] 8593910-14-2024 12:45-0400 Body seietq62.43 kgMD Stanley Emerson Work Phone: 1(919)[address] [place], [place] 8593910-14-2024 12:45-0400 Diastolic blood kbeqgcds91 mm[Hg]MD Stanley Emerson Work Phone: [facility]10-14-2024 12:45-0400 Heart rate92 /minMD Stanley Emerson Work Phone: [facility]10-14-2024 12:45-0400 SaO2% (BldA) [Mass fraction]99 %MD Stanley Emerson Work Phone: [facility]10-14-2024 12:45-0400 Systolic blood cfanfxcm003 mm[Hg]MD Stanley Emerson Work Phone: [facility]10-01-2024 15:19-0400 [address]jcoj[address] [facility]10-01-2024 15:19-0400Body mass index (BMI) [Ratio]26.32 kg/u6AhozwtMuscogee10-01-2024 15:19-0400Body avdaac29.99 [facility]10-01-2024 15:19-0400Diastolic blood rqagsuoj52 mm[Hg][place]10-01-2024 15:19-0400 Heart rate85 /minMuscogee10-01-2024 15:19-0400Systolic blood boionahl084 mm[Hg][place]09-24-2024 11:52-0400Body rkaagb862 [facility] Medicineharmony Emerson MD Work Phone: [facility] CenterOrfuspteho65-05-6132 11:52-0400Body mass index (BMI) [Ratio]28.63 kg/j8EcjcweStanley Emerson MD Work Phone: [facility] CenterDqxxkwgreu55-62-0247 11:52-0400Body .15 kgStanley Emerson MD Work Phone: [facility] CenterJgyqqxythk94-61-4419 09:13-0400Body cm Teo Al MD Work Phone: [address] [place], [place] 7796009-17-2024 09:13-0400 Body mass index (BMI) [Ratio]26.32 kg/k6XmzshjTeo Al MD Work Phone: [address] [place], [place] 7796009-17-2024 09:13-0400 Body .99 kgTeo Al MD Work Phone: [address] [place], [place] 7796009-17-2024 09:13-0400 Diastolic blood gizhnjlk60 mm[Hg]Teo Al MD Work Phone: [address] [place], [place] 7796009-17-2024 09:13-0400 Heart rate79 /minTeo Al MD Work Phone: 1(791)192-[address] [place], [place] 6408009-17-2024 09:13-0400 Systolic blood euqowuxa105 mm[Hg]Teo Al MD Work Phone: [address] [place], [place] 7796009-11-2024 11:48-0400 Body wctxqu569.96 cmMD Stanley Emerson Work Phone: 1(853)[address]09-11-2024 11:48-0400 Body mass index (BMI) [Ratio]28.2 kg/m2MD Stanley Emerson Work Phone: 1(970)43573 [address]09-11-2024 11:48-0400 Body bfenuoyglvp48.1 [degF]MD Stanley Emerson Work Phone: 1(076)494-[address] [place], [place] 5830109-11-2024 11:48-0400 Body djyqee36.79 kgMD Stanley Emerson Work Phone: 1(172)257-[address] [place], [place] 5830109-11-2024 11:48-0400 Diastolic blood fypicnga23 mm[Hg]MD Stanley Emerson Work Phone: 1(267)276-[address] [place], [place] 5830109-11-2024 11:48-0400 Heart rate76 /minMD Stanley Emerson Work Phone: 1(481)[address]09-11-2024 11:48-0400 Respiratory rate18 /minMD Stanley Emerson Work Phone: 1(601)758-[address] [place], [place] 5830109-11-2024 11:48-0400 SaO2% (BldA) [Mass fraction]96 %MD Stanley Emerson Work Phone: 1(310)[address] [place], [place] 8593909-11-2024 11:48-0400 Systolic blood revqtvzq34 mm[Hg]MD Stanley Emerson Work Phone: 1(187)[address] [place], [place] 8593908-30-2024 15:00-0400 Body .96 cmMD Stanley Emerson Work Phone: 1(912)[address] [place], [place] 8593908-30-2024 11:19-0400 Diastolic blood bidcdbfl20 mm[Hg]MD Stanley Emerson Work Phone: 1(739)[address] [place], [place] 8593908-30-2024 11:19-0400 Heart rate64 /minMD Stanley Emerson Work Phone: 1(643)[address] [place], [place] 8593908-30-2024 11:19-0400 Systolic blood bklbujrk31 mm[Hg]MD Stanley Emerson Work Phone: 1(527)[address] [place], [place] 8593908-30-2024 11:13-0400 Respiratory rate20 /minMD Stanley Emerson Work Phone: 1(842)[address] [place], [place] 8593908-30-2024 11:13-0400 SaO2% (BldA) [Mass fraction]96 %MD Stanley Emerson Work Phone: 1(092)[address] [place], [place] 8593908-30-2024 04:44-0400 Body .6 kgMD Stanley Emerson Work Phone: 1(203)[address] [place], [place] 8593908-29-2024 23:41-0400 Body jxuiselbmbd74.2 [degF]MD Stanley Emerson Work Phone: 1(912)[address] [place], [place] 8593908-26-2024 10:00-0400 Inhaled oxygen flow rate2 L/minMD Stanley Emerson Work Phone: 1(730)[address] [place], [place] 8593908-21-2024 09:35-0400 Diastolic blood zgyhqgga92 mm[Hg]MD Stanley Emerson Work Phone: 1(878)[address] [place], [place] 8593908-21-2024 09:35-0400 Heart rate65 /minMD Lesleeludy Idania Work Phone: 1(831)[address] [place], [place] 8593908-21-2024 09:35-0400 Respiratory rate16 /minMD Stanley Singhchery Work Phone: 1(664)[address] [place], [place] 8593908-21-2024 09:35-0400 SaO2% (BldA) [Mass fraction]97 %MD Stanley Emerson Work Phone: 1(025)[address] [place], [place] 8593908-21-2024 09:35-0400 Systolic blood lgjvlecs399 mm[Hg]MD Stanley Emerson Work Phone: 1(192)[address] [place], [place] 8593908-21-2024 07:41-0400 Body thxymq645.96 cmMD Lesleeludy Idania Work Phone: 1(266)[address] [place], [place] 8593908-21-2024 07:41-0400 Body rsbola493.32 kgMD Lesleeludy Idania Work Phone: 1(481)[address] [place], [place] 8593905-29-2024 10:57-0400 Body sqaqqd693.96 cmMD Lesleeludy Idania Work Phone: 1(010)[address] [place], [place] 8593905-29-2024 10:57-0400 Body mass index (BMI) [Ratio]28 kg/m2MD Stanley Idania Work Phone: 1(025)[address] [place], [place] 8593905-29-2024 10:57-0400 Body oeyzcnabgxj87.8 [degF]MD Stanley Emerson Work Phone: 1(526)[address] [place], [place] 8593905-29-2024 10:57-0400 Body xfbacg24.1 kgMD Stanley Singhchery Work Phone: 1(324)[address] [place], [place] 8593905-29-2024 10:57-0400 Diastolic blood uvigddnh06 mm[Hg]MD Stanley Emerson Work Phone: 1(138)[address] [place], [place] 8593905-29-2024 10:57-0400 Heart rate71 /minMD Stanley Emerson Work Phone: 1(480)[address] [place], [place] 8593905-29-2024 10:57-0400 Respiratory rate18 /minMD Stanley Emerson Work Phone: 1(507)[address] [place], [place] 8593905-29-2024 10:57-0400 SaO2% (BldA) [Mass fraction]98 %MD Stanley Emerson Work Phone: 1(368)[address] [place], [place] 8593905-29-2024 10:57-0400 Systolic blood mm[Hg]MD Stanley Emerson Work Phone: 1(445)[address] [place], [place] 8593904-25-2024 10:47-0400 Body uoccyu069.96 cmMD Lesleeludy Idania Work Phone: 1(988)[address] [place], [place] 8593904-25-2024 10:47-0400 Body mass index (BMI) [Ratio]28.6 kg/m2MD Stanley Emerson Work Phone: 1(178)[address] [place], [place] 8593904-25-2024 10:47-0400 Body rmiikhjvarz17.8 [degF]MD Stanley Emerson Work Phone: 1(414)[address] [place], [place] 8593904-25-2024 10:47-0400 Body pekdsj122.15 kgMD Lesleeludy Idania Work Phone: 1(906)[address] [place], [place] 8593904-25-2024 10:47-0400 Diastolic blood jiuajaso26 mm[Hg]MD Stanley Emerson Work Phone: 1(600)[address] [place], [place] 8593904-25-2024 10:47-0400 Heart rate64 /minMD Lesleeludy Idania Work Phone: 1(145)[address] [place], [place] 8593904-25-2024 10:47-0400 Respiratory rate16 /minMD Lesleeludy Idania Work Phone: 1(589)[address] [place], [place] 8593904-25-2024 10:47-0400 SaO2% (BldA) [Mass fraction]98 %MD Stanley Emerson Work Phone: [facility]04-25-2024 10:47-0400 Systolic blood mm[Hg]MD Stanley Emerson Work Phone: [facility]02-05-2024 14:17-0500 Blood Pressure LocationPaGoGardenzahida [employer] [facility]02-05-2024 14:17-0500Diastolic blood gazpsjbg47 mm[Hg]Katia [employer] [facility]02-05-2024 14:17-0500Heart rate70 /minDDStocks [facility]02-05-2024 14:17-0500Respiratory rate16 /minPaCode Rebel [facility]02-05-2024 14:17-0500Systolic blood azimigwz593 mm[Hg]Katia [employer] [facility]11-21-2023 14:00-0500Body .96 Magen Francesaidee Other [facility] [employer] Other [id number] 14:00-0500Body mass index (BMI) [Ratio] 28.73 kg/m2Celia Francesaidee Other [facility] [employer] Other 11-21-2023 14:00-0500Body xympisgkwmf40.8 [degF]Celia Starkscatherineaidee Other [employer] Other 11-21-2023 14:00-0500Body yxoccz916.52 kgCelia Griffin Other [facility] [employer] Other 11-21-2023 14:00-0500Diastolic blood wmietzmp103 mm[Hg]Celia Griffin Other [facility] [employer] Other 11-21-2023 14:00-0500Respiratory rate18 /minCelia Griffin Other [facility] [employer] Other 11-21-2023 14:00-4785FoP3% (BldA) [Mass fraction]96 % Celia Griffin Other [place] [employer] Other 11-21-2023 14:00-0500Systolic blood mm[Hg] Celia Griffin Other [place] [employer] Other [id number] 13:38-0400Blood Pressure LocationPatrick Bounce Exchange [facility]-17-2023 13:38-0400Diastolic blood syyehszl835 mm[Hg]Katia [employer] [facility] [place] 880990-17-2023 13:38-0400Heart rate72 /minPatrick SAMUELS [facility] [place] 880990-17-2023 13:38-0400Systolic blood edtirxnd089 mm[Hg]Katia [employer] [facility]08-30-2023 09:57-0400Body qikqbe298.96 Mitra Emerson Work Phone: 1(677) 492-9030828-6827XR-Vkmii [facility] 250 DO Work Phone: 1(868) 621-937408-30-2023 09:57-0400Body mass index (BMI) [Ratio] 27.35 kg/l5NyvbbsStanley Singhchery Work Phone: [phone]-Lroib [facility] 250 DO Work Phone: 1(230) 549-618808-30-2023 09:57-0400Body surface area Derived from formula2.23 h9EgexfdStanley Emerson Work Phone: [phone]-Nprbl [facility] 250 DO Work Phone: 1(974) 755-136508-30-2023 09:57-0400Body patglu43.62 kgStanley Singhchery Work Phone: [phone]-Kzicm [facility] 250 DO Work Phone: 1(409) 826-477708-30-2023 09:57-0400Diastolic blood yljjaalq21 mm[Hg] Stanley Singhchery Work Phone: [phone]-Qfguh [facility] 250 DO Work Phone: 1(483) 248-182308-30-2023 09:57-0400Heart rate72 /minEharmony Singhchery Work Phone: [id number]-Pxyho [facility] 250 DO Work Phone: 1(788) 873-547308-30-2023 09:57-0400Systolic blood mm[Hg] Stanley Singhchery Work Phone: 1(424) [phone]-Ygbce [place] [facility] DO Work Phone: 1(622) 863-147003-29-2023 14:30-0400Body ilzjcd281.96 cmCarlene Kasper Other [employer] Other 03-29-2023 14:30-0400Body mass index (BMI) [Ratio] 26.32 kg/o2VytepyCarlene Kasper Other [employer] Other 03-29-2023 14:30-0400Body amqtcorkorl74.8 [degF]Carlene Kasper Other [facility] [employer] Other 03-29-2023 14:30-0400Body nebpbn73.99 kgCarlene Kasper Other [place] [employer] Other 03-29-2023 14:30-0400Diastolic blood ozcckyfw96 mm[Hg] Carlene Kasper Other [place] [employer] Other 03-29-2023 14:30-4090UdE1% (BldA) [Mass fraction]96 % Carlene Kasper Other [employer] Other 03-29-2023 14:30-0400Systolic blood oucmgxml001 mm[Hg] Carlene Kasper Other [employer] Other 03-08-2023 07:25-0500Blood Pressure LocationPatricCoreOptics [facility]03-08-2023 07:25-0500Diastolic blood gvlnpryv14 mm[Hg]DDStocks [facility]03-08-2023 07:25-0500Heart rate70 /minPatrick [employer] [facility]03-08-2023 07:25-0500Respiratory rate16 /minPatrick [employer] [facility]03-08-2023 07:25-0500Systolic blood eqnealuf438 mm[Hg]DDStocks [facility]03-02-2023 09:45-0500Body drnavs812.96 cmMakaren Valentine Other [employer] Other 03-02-2023 09:45-0500Body mass index (BMI) [Ratio] 26.32 kg/g2EawuymyMargarito Valentine Other [employer] Other 03-02-2023 09:45-0500Body fadqujhercu23.2 [degF] Margarito Valentine Other [employer] Other 03-02-2023 09:45-0500Body iqhozr32.99 kgMargarito Valentine Other [employer] Other 03-02-2023 09:45-0500Diastolic blood uqslwmeb50 mm[Hg] Margarito Valentine Other [employer] Other 03-02-2023 09:45-2215HmT4% (BldA) [Mass fraction]97 % Margarito Valentine Other [employer] Other 03-02-2023 09:45-0500Systolic blood unlawelf270 mm[Hg] Margarito Valentine Other [employer] Other 02-08-2023 07:34-0500Body pznngxijlmk33.9 [degF]MD Stanley Emerson Work Phone: [facility]02-08-2023 07:34-0500 Diastolic blood xnknigpl02 mm[Hg]MD Stanley Emerson Work Phone: [facility]02-08-2023 07:34-0500 Heart rate87 /minMD Stanley Emerson Work Phone: [facility]02-08-2023 07:34-0500 Respiratory rate18 /minMD Stanley Emerson Work Phone: [facility]02-08-2023 07:34-0500 SaO2% (BldA) [Mass fraction]94 % Lesleeludy Idania Work Phone: [facility]02-08-2023 07:34-0500 Systolic blood quuustxq688 mm[Hg]MD Angel Luischery Work Phone: 1([phone])406-[address] [place], [place] [address]0102-08-2023 05:46-0500 Body sujlam58 kgMD Stanley Emerson Work Phone: [phone]02-07-2023 16:27-0500 Inhaled oxygen flow rate6 L/minMD Stanley Emerson Work Phone: [phone])[address]02-07-2023 10:06-0500 Body muagek806.42 cmMD Stanley Emerson Work Phone: [phone])642-[address] [place], [place] [address]02-07-2023 10:06-0500 Body mass index (BMI) [Ratio]27.3 kg/m2MD ludy Emerson Work Phone: [phone] [place], [place] [address]0101-25-2023 10:00-0500 Body yfipso892.96 cmMakaren Valentine Other [employer] Other 01-25-2023 10:00-0500Body mass index (BMI) [Ratio] 26.32 kg/a5WhubrkvMargarito Valentine Other [employer] Other 01-25-2023 10:00-0500Body jmcuycteijl43.8 [degF] Margarito Valentine Other [employer] Other 01-25-2023 10:00-0500Body nhwuqf57.99 kgMattlucy Valentine Other [employer] Other 01-25-2023 10:00-0500Diastolic blood ipeosizq07 mm[Hg] Margarito Valentine Other [employer] Other 01-25-2023 10:00-0013KvV7% (BldA) [Mass fraction]95 % Margarito Valentine Other [employer] Other 01-25-2023 10:00-0500Systolic blood ahvuubek985 mm[Hg] Margarito Valentine Other [employer] Other 01-18-2023 13:07-0500Body zgwhat581.96 cmMD Stanley Reppler Work Phone: [facility]01-18-2023 13:07-0500 Body kaiaoa36.44 kgMD Stanley Reppler Work Phone: [facility]01-12-2023 12:00-0500 Body ikhwsf591.96 cmMattlucy Valentine Other [employer] Other 01-12-2023 12:00-0500Body mass index (BMI) [Ratio] 26.32 kg/w3NquqqomMargarito Valentine Other [employer] Other 01-12-2023 12:00-0500Body qlzdkphamwd43.2 [degF] Margarito Valentine Other [employer] Other 01-12-2023 12:00-0500Body mijmln06.99 kgMakaren Valentine Other [employer] Other 01-12-2023 12:00-0500Diastolic blood neqzzlaa13 mm[Hg] Margarito [facility] [employer] Other 01-12-2023 12:00-2967CvA7% (BldA) [Mass fraction]98 % Margarito Valentine Other [facility] [employer] Other 01-12-2023 12:00-0500Systolic blood cszqibpi031 mm[Hg] Margarito Valentine Other [employer] Other 01-10-2023 12:00-0500Body vaolym479.96 cmAreggie Francesaidee Other [employer] Other 01-10-2023 12:00-0500Body mass index (BMI) [Ratio] 26.42 kg/m2Celia Francesaidee Other [employer] Other 01-10-2023 12:00-0500Body axutizamsvf73.6 [degF]Celia Starkscatherineaidee Other [employer] Other 01-10-2023 12:00-0500Body .35 kgCelia Francesaidee Other [facility] [employer] Other 01-10-2023 12:00-0500Diastolic blood iyfuyxru84 mm[Hg] Celia Griffin Other [facility] [employer] Other 01-10-2023 12:00-0500Respiratory rate20 /minCelia Griffin Other [facility] [employer] Other 01-10-2023 12:00-9860XyD7% (BldA) [Mass fraction]98 % Celia Griffin Other [facility] [employer] Other 01-10-2023 12:00-0500Systolic blood vtjjziua870 mm[Hg] Celia Griffin Other [facility] [employer] Other 01-09-2023 15:38-0500Body iepznt491.96 cmEharmony Emerson Work Phone: [phone]-Oirji [facility] [address] DO Work Phone: 1(790) 451-394201-09-2023 15:38-0500Body mass index (BMI) [Ratio] 26.45 kg/e3MhdtmwStanley Emerson Work Phone: [phone]) [phone]-Injsr [facility] [address] DO Work Phone: [phone] 15:38-0500Body surface area Derived from formula2.2 w7OvaiolStanley Emerson Work Phone: [phone]-Rocha [facility] 250 DO Work Phone: 1(530) [phone] 15:38-0500Body .44 kgStanley Emerson Work Phone: [phone]-Nohmo [facility] 250 DO Work Phone: 1(394) 243-175301-09-2023 15:38-0500Diastolic blood lmmufjxn66 mm[Hg] Stanley Emerson Work Phone: [phone]-Xfjob [facility] 250 DO Work Phone: 1(146) 423-967301-09-2023 15:38-0500Heart rate71 /minEharmony Emerson Work Phone: [phone]-Jlhbv [facility] 250 DO Work Phone: 1(362) 478-176801-09-2023 15:38-0500Systolic blood imkvvyfi710 mm[Hg] Stanley Emerson Work Phone: [phone]-Zwjkx [facility] DO Work Phone: 1([phone]) 520-641812-28-2022 11:53-0500Body xhyzqgyhhke83.8 [degF]MD Stanley Emerson Work Phone: [facility]12-28-2022 11:53-0500 Diastolic blood ijseubib73 mm[Hg]MD Stanley Emerson Work Phone: 1(104)676-[address] [place], [place] [address]12-28-2022 11:53-0500 Heart rate78 /minMD Stanley Emerson Work Phone: 1(670)135-[address] [place], [place] [address]12-28-2022 11:53-0500 Respiratory rate16 /minMD Lesleeludy Emerson Work Phone: 1(344)324-[address] [place], [place] [address]12-28-2022 11:53-0500 SaO2% (BldA) [Mass fraction]97 %MD Stanley Emerson Work Phone: [phone])399-[address] [place], [place] [address]12-28-2022 11:53-0500 Systolic blood libyztol168 mm[Hg]MD Stanley Emerson Work Phone: 1(274)432-[address] [place], [place] [address]12-28-2022 06:02-0500 Body .8 kgMD Lesleeludy Emerson Work Phone: [phone])585-[address] [place], [place] [address]0112-27-2022 11:48-0500 63 1Eharmony Singhchery Work Phone: [phone]-Lkzdw [facility] DO Work Phone: Comment on above:[id number] 12:08-0500Body cfuuib412.96 cmMD Lesleeludy Idania Work Phone: [facility] Encounters Encounter DateEncounter TypeCare ProviderFacilityStart: 32-96-0633kguhxnelej Blanca X OrzechFacility:[place]Start: 03-10-2025 End: 04-27-3629alfpyhuyciLgleuz X OrzechFacility:[place]Start: 03-10-2025 End: 82-07-6838Noasjsu encounter procedureAurora X [employer] [facility] start: 03-09-2025 End: 95-04-0130lnntawvpstSaohnr J Hemeyer MD Work Phone: [facility] Work Phone: Start: 03-09-2025 End: 13-63-2689Vjnxtxc encounter procedureCelia Griffin MD-[facility] Work Phone: Start: 02-28-2025 End: 56-17-4723Iuaedohqs Result EncounterGeneric External Data ProviderNOMS External Department UnsolicitedStart: 02-28-2025 End: 35-05-7403Locciryqs Result EncounterGeneric External Data ProviderNOMS External Department UnsolicitedStart: 51-43-3633Hqv-patient / Non-visitCelia Griffin MD-[facility] Work Phone: Start: 02-10-2025 End: 26-45-9780vivsicqsjbNohcmt X OrzechFacility:EU [place]Start: 02-10-2025 End: 48-41-6199Ttjogih encounter procedureAurora X [employer] [facility] start: 02-02-2025 End: 85-58-9458Fkhqxyqjg Result EncounterGeneric External Data ProviderNOMS External Department UnsolicitedStart: 02-02-2025 End: 96-23-8648Kuaeftdbf Result EncounterGeneric External Data ProviderNOMS External Department UnsolicitedStart: 83-75-5182ivqrnpimecSjbpcr Tanna Facility:[place]Start: 01-12-2025 End: 27-81-6506gaumueyudvNkrifr TannaFacility:[facility] [place]Start: 01-12-2025 End: 56-13-4522Cmxyili encounter procedureLadaniel Anderson [facility] start: 12-14-2024 End: 75-12-8765dpoqrmecnbCibfnj TannaFacility:EU [place]Start: 12-14-2024 End: 52-08-1595Ftkhuut encounter procedureEboni Anderson [facility] start: 11-16-2024 End: 16-11-6999yfthtsdzdhIftufcj R ARLENEFacility:FTMCStart: 11-16-2024 End: 14-96-6048Hdh Drop offPaaprilk Isabel SAMUELS [facility] Start: 11-16-2024 End: 56-83-5052tixgxxwnxfImvndne R WATERSFacility:EU [place]kyStart: 11-16-2024 End: 41-93-8437Bbaifli encounter procedurePatamara Hall ARLENE [facility] Start: 11-09-2024 End: 56-58-4134Wnjkeo flowsEdward Emerson MD Work Phone: [facility] CI FM 100Start: 11-09-2024 End: 15-82-3634Fuimbf Reji Emerson MD Work Phone: [facility] 100Start: 11-09-2024 End: 80-17-7915Qyyfik outpatient visit 25 minutesEdludy Emerson MD Work Phone: [facility] FM 100Comment on above:Venous insufficiency of both lower extremities (Primary Dx); Venous stasis dermatitis of right lower extremity; 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 disturbance, psychotic disturbance, mood disturbance, or anxiety (HCC)Start: 11-09-2024 End: 57-40-0454zocpgijcduKBLAOT J HEMEYERNot AvailableStart: 11-03-2024 End: 73-48-9150kmtzghmmvjUnsdvb J Hemeyer MD Work Phone: [facility] Work Phone: Start: 11-03-2024 End: 87-88-5655Dheshoj encounter procedureStanley Emerson MD Work Phone: [facility] Work Phone: Start: 11-02-2024 End: 73-64-3443jjphotcerfOH-C HEATHER OMALLEYFacility:EU [place]vueStart: 11-02-2024 End: 76-68-3734Iolmcpn encounter procedureHEATHER OMALLEY [facility] start: 10-27-2024 End: 21-54-4198Bqswauvff Result EncounterGeneric External Data ProviderNOMS External Department UnsolicitedStart: 10-27-2024 End: 89-94-7425Poqkhxncf Result EncounterGeneric External Data ProviderNOMS External Department UnsolicitedStart: 93-90-2677Jan-patient / Non-visitEdludy Emerson MD Work Phone: [facility] Work Phone: Start: 10-14-2024 End: 38-78-1493Zntyctbqijkx care manage srvc 14 day dischargeStanley Emerson MD Work Phone: [facility] FM 100Comment on above:Pneumonia of left lower lobe due to infectious organism; Encounter for examination following treatment at hospital; Lower extremity edema; Delirium due to another medical conditionStart: 10-14-2024 End: 32-25-7205iahrwuzceeUFDEWH J HEMEYERNot AvailableStart: 10-13-2024 End: 24-64-4993Vhxloy OnlyEdludy Emerson MD Work Phone: [facility] FM 100Comment on above:Peripheral vascular disease (CMS/HCC) (Primary Dx); Presence of stent in arteryStart: 08-83-8134Yls-patient / Non-visitEdludy Emerson MD Work Phone: [facility] Work Phone: Start: 16-99-6308zcviaxuegiBNCZ J [facility] Troytart: 22-63-0666Scsfhizrl for preprocedural cardiovascular examinationRUBY Rich [facility] Start: 10-11-2024 End: 00-70-8214Hxljbhzpy to same day surgery Cyndi Emerson MD Work Phone: [facility] Work Phone: Start: 10-11-2024 End: 45-68-8505rseqhklrexCqnptk J HemeyerFacility:[facility] Southtart: 10-08-2024 End: 97-59-6255OpvavfkpfffxfvrYvuw J Quan MD Work Phone: [facility] Work Phone: Start: 10-08-2024 End: 12-18-0933Suiqbm consultation new/estab patient 78 Tevin Montana MD Work Phone: [facility] CenterComment on above: Cardiomyopathy, ischemic (Primary Dx); Encounter to establish [...] pre-operative cardiovascular examination; Pre-operative cardiovascular examination, supraventricular arrhythmiaStart: 10-08-2024 End: 66-74-8502Clidjer encounter statusRuby Montana MD Work Phone: [facility] Work Phone: Start: 10-08-2024 End: 93-66-7653Bfezdhwhkysuxkln arrhythmiaRuby Montana MD Work Phone: [facility] Work Phone: Start: 10-08-2024 End: 45-18-4594Bfbpsabtmox arrhythmiaRuby Montana MD Work Phone: [facility] Work Phone: Start: 10-08-2024 End: 93-28-8551sovhubcxcdNJNF [facility] AmbulatoryStart: 10-08-2024 End: 12-68-3845Rgoardzhr for preprocedural cardiovascular examinationChildren's [facility] Medical Center AmbulatoryStart: 10-05-2024 End: 35-24-3577slrduclxhbSgitgfi R WATERSFacility:EU [place]kyStart: 10-05-2024 End: 31-61-5306Cogtbmb encounter procedurePatamara SAMUELS [facility] Start: 10-04-2024 End: 39-10-8493Nqgrmxlnjl and management of inpatientPalejandro Gaspar MD Work Phone: [facility] Vascular LabComment on above: ArrivedStart: 10-02-2024 End: 95-65-0518Qvvfvisyu Result EncounterGeneric External Data ProviderNOMS External Department UnsolicitedStart: 10-02-2024 End: 88-60-0402Twwalisga Result EncounterGeneric External Data ProviderNOMS External Department UnsolicitedStart: 10-02-2024 End: 84-17-5381Giloacqgfv and management of inpatientJulio Cesar Gaspar MD Work Phone: [facility] Med SurgComment on above:Lower extremity edema (Primary Dx); Delirium due to another medical condition; Cognitive and behavioral changesStart: 10-01-2024 End: 95-67-1314lvyododjmoWuneutjGalion Hospital Work Phone: Start: 10-01-2024 End: 76-64-0876Ldpjqkow ReferredMariam Diab MD Work Phone: [facility] [place] HospStart: 52-37-4450adjpqxzjlnLjvqht J HemeyerFacility:[facility] Southtart: 10-01-2024 End: 87-61-2738Oywdvnrfb Result EncounterGeneric External Data ProviderNOMS External Department UnsolicitedStart: 10-01-2024 End: 37-96-2193Xlclaxuwd Result EncounterGeneric External Data ProviderNOMS External Department UnsolicitedStart: 09-28-2024 End: 68-75-8140ifmluextxlUdkzrj A DiabMet[facility] Work Phone: Start: 09-28-2024 End: 65-27-0548Yxaiuhrj Elmira Bo MD Work Phone: [facility] [place] HospStart: 09-28-2024 End: 16-58-3909Boattfmdj Result EncounterGeneric External Data ProviderNOMS External Department UnsolicitedStart: 09-28-2024 End: 66-44-9050Hkvtktuns Result EncounterGeneric External Data ProviderNOMS External Department UnsolicitedStart: 09-23-2024 End: 56-40-3300Adfeezs encounter procedureAt[facility] Health [facility] GroupS[facility] Work Phone: Start: 09-23-2024 End: 77-02-1734bwkxnrizebKdfwog J [facility]eyerL[facility] Work Phone: Start: 09-21-2024 End: 91-60-3214Oizboj outpatient visit 25 minutesStanley Emerson MD Work Phone: [facility] CI 100Comment on above: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 disturbance, psychotic disturbance, mood disturbance, or anxiety (CMS/HCC); Hallucinations; Need for prophylaxis against urinary tract infection; Indwelling urinary catheter present; Former smoker; Polypharmacy; OverweightStart: 09-21-2024 End: 39-33-9387Gnoizc flowsheetStanley Emerson MD Work Phone: [facility] FM 100Start: 09-21-2024 End: 31-57-7862Vusomh flowsheetEdludy Emerson MD Work Phone: [facility] CI 100Start: 09-21-2024 End: 95-63-1562ghnmiushqvHSFVDP J HEMEYERNot AvailableStart: 09-10-2024 End: 96-27-4652Fpxcsg outpatient visit 25 minutesHasalvador Al MD Work Phone: [facility] SystemComment on above:Cardiomyopathy, ischemic; 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; S/P PTCA (percutaneous transluminal coronary angioplasty); ST elevation myocardial infarction (STEMI), unspecified artery (Multi); Paroxysmal atrial fibrillation (Multi); High risk medication use; Essential hypertension; Abdominal aortic aneurysm (AAA) greater than 5.5 cm in diameter in male; Dyslipidemia; Stage 3a chronic kidney disease (Multi); Former smoker; BMI 26.0-26.9,adultStart: 09-10-2024 End: 01-13-5710odoorfdvdkIVNAUC M [facility] AmbulatoryStart: 09-09-2024 End: 13-30-3698atlzlanesxJshpyq J GaleaFacility:EU [place]vueStart: 09-02-2024 End: 08-05-5403Hguewswbu Result EncounterGeneric External Data ProviderNOMS External Department UnsolicitedStart: 09-02-2024 End: 02-31-2131Bovynpuoh Result EncounterGeneric External Data ProviderNOMS External Department UnsolicitedStart: 08-23-2024 End: 81-17-8138Ghyfjegyj Result EncounterGeneric External Data ProviderNOMS External Department UnsolicitedStart: 08-23-2024 End: 83-84-2735Cksdltdhv Result EncounterGeneric External Data ProviderNOMS External Department UnsolicitedStart: 08-12-2024 End: 25-60-2059ghcbhgevcuKFRomeo OMALLEYFacility:EU BellevueStart: 08-11-2024 End: 87-88-6731ekoysgfzerYueyhuYohan Emerson MD Work Phone: [facility] Work Phone: Start: 08-11-2024 End: 17-85-1595Ylbcboy encounter procedureEdludy Emerson MD Work Phone: 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; S/P PTCA (percutaneous transluminal coronary angioplasty)Start: 08-06-2024 End: 31-16-4815hmesslcnuzJFPBNF M IBRKindred Hospital Limatart: 96-19-0143Lnq-patient / Non-visitEdludy Emerson MD Work Phone: [facility] Work Phone: Start: 07-29-2024 End: 96-54-9206abohnjbrqoAdaspnf R WATERSFacility:FTMCStart: 07-29-2024 End: 02-33-8721rkcrrksfyiNakmjis R WATERSFacility:EU [place]kyStart: 07-29-2024 End: 33-33-0419Boxzqr outpatient visit 40 minutesTeo Al MD Work Phone: [facility] on above:Cardiomyopathy, ischemic (Primary Dx); 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; Paroxysmal atrial fibrillation (Multi); High risk medication use; S/P PTCA (percutaneous transluminal coronary angioplasty); ST elevation myocardial infarction (STEMI), unspecified artery (Multi); Infrarenal abdominal aortic aneurysm (AAA) without rupture (CMS-HCC); Essential hypertension; Dyslipidemia; Stage 3a chronic kidney disease (Multi); Transient cerebral ischemia, unspecified type; Hematuria, unspecified type; Hyperthyroidism; BMI 26.0-26.9,adult; Former smokerStart: 07-29-2024 End: 99-31-1288cojivbejrvUKISBJ M [facility] AmbulatoryStart: 07-23-2024 End: 14-45-8756Buuqruhmw Result EncounterGeneric External Data ProviderNOMS External Department UnsolicitedStart: 07-23-2024 End: 35-87-1535Edfvsipss Result EncounterGeneric External Data ProviderNOMS External Department UnsolicitedStart: 07-15-2024 End: 11-85-5311nivhwaxrwlNG-C HEATHER OMALLEYFacility:EU [place]vueStart: 07-15-2024 End: 04-47-1524Bvccwps encounter procedureHEATHER OMALLEY [facility] start: 07-13-2024 End: 14-80-5408Aywucpmsc Result EncounterGeneric External Data ProviderNOMS External Department UnsolicitedStart: 07-13-2024 End: 35-35-4358Yvajncrry Result EncounterGeneric External Data ProviderNOMS External Department UnsolicitedStart: 06-29-2024 End: 81-55-6905Lsrnzfsrw Result EncounterSluh Sequeira MD Work Phone: noms External Department UnsolicitedStart: 06-29-2024 End: 81-55-6145Yfjepbxei Result EncounterSluh Sequeira MD Work Phone: noms External Department UnsolicitedStart: 06-25-2024 End: 01-66-5926Bxdzsjzmg Result EncounterGeneric External Data ProviderNOMS External Department UnsolicitedStart: 06-25-2024 End: 49-61-2785Zipnckdui Result EncounterGeneric External Data ProviderNOMS External Department UnsolicitedStart: 06-22-2024 End: 15-98-0007Zrykkiana Mishel Emerson MD Work Phone: NOEU CI FM 100Start: 06-01-2024 End: 27-65-8473ymnvgqqmhcXhflmj X OrzechFacility:EU [place]kyStart: 06-01-2024 End: 34-11-1498Sohqsbi encounter procedureAurora Jomar Boles [facility] Start: 05-21-2024 End: 16-22-6689GlwwvpMlmycm J Hemeyer MD Work Phone: [facility] FMComment on above:Simple chronic bronchitis (CMS/HCC)Start: 05-21-2024 End: 87-94-2946Fopjcab encounter Kandy Emerson MD Work Phone: [facility] Work Phone: Start: 05-21-2024 End: 87-26-8026Cqbpxp outpatient visit 25 minutessalvador Al MD Work Phone: [facility] HospitallandsComment on above:Paroxysmal atrial fibrillation (Multi); High risk medication use; 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; S/P PTCA (percutaneous transluminal coronary angioplasty); ST elevation myocardial infarction (STEMI), unspecified artery (Multi); Cardiomyopathy, ischemic; Essential hypertension; Dyslipidemia; Abdominal aortic aneurysm (AAA) greater than 5.5 cm in diameter in male (CMS-HCC); Transient cerebral ischemia, unspecified type; Stage 3a chronic kidney disease (Multi); BMI 26.0-26.9,adult; Former smokerStart: 05-21-2024 End: 56-87-8020pylxdxusmkIQODHN M [facility] AmbulatoryStart: 05-13-2024 End: 81-56-1926Yqtkqgn encounter Kandy Emerson MD Work Phone: [facility] 100Comment on above:Encounter for Medicare annual wellness exam (Primary Dx); Advance directive discussed with patient; Encounter for screening for other disorder; Screening for alcohol problem; Former smoker; OverweightStart: 05-13-2024 End: 68-24-6696fahpttiwikJPOJHY J HEMEYERNot AvailableStart: 05-13-2024 End: 10-73-1186Aavoyw Reji Emerson MD Work Phone: [facility] 100Start: 05-13-2024 End: 44-17-2437Nxhutp Reji Emerson MD Work Phone: [facility] 100Start: 05-10-2024 End: 69-47-6208Hvjotd Reji Emerson MD Work Phone: [facility] 100Start: 05-10-2024 End: 52-69-6963Izhggw flowsEdward Emerson MD Work Phone: [facility] 100Start: 05-10-2024 End: 90-29-0355Bnqwdf outpatient visit 40 minutesEdludy Emerson MD Work Phone: [facility] CI FM 100Comment on above:Essential hypertension, benign (CMS/HCC); Hypertensive nephropathy (CMS/HCC); Stage 3a chronic kidney disease (HCC) (CMS/HCC); Microalbuminuria; Panlobular emphysema (CMS/HCC); Simple chronic bronchitis (CMS/HCC); Mixed dyslipidemia (CMS/HCC); Polypharmacy; Mixed conductive and sensorineural hearing loss of both ears; Former smoker; OverweightStart: 05-10-2024 End: 73-03-4513bvklgvefcfKKCDLH J HEMEYERNot AvailableStart: 05-06-2024 ambulatoryAlysha J GaleaFacility:EU BellevueStart: 05-05-2024 End: 96-02-6678amlybfehcmNxhfmh J GaleaFacility:EU SanduskyStart: 04-28-2024 End: 23-43-7526Cqbjbzgds Result EncounterGeneric External Data ProviderNOMS External Department UnsolicitedStart: 04-28-2024 End: 76-19-6734Vvhovslgj Result EncounterGeneric External Data ProviderNOMS External Department UnsolicitedStart: 04-06-2024 End: 59-09-8386fnjdtkbvygOktgiry R WATERSFacility:FTMCStart: 04-06-2024 End: 63-59-8626Ubf Drop offKatia SAMUELS [facility] Start: 04-06-2024 End: 23-29-6719fijcpylvncHqfnzrc Isabel SAMUELSFacility:EU [place]kyStart: 04-06-2024 End: 91-17-1630Epmfksw encounter procedurePatamara Isabel SAMUELS [facility] Start: 03-23-2024 End: 22-26-5677Oinrrrnum Result EncounterGeneric External Data ProviderNOMS External Department UnsolicitedStart: 03-23-2024 End: 00-64-9139Reaetfrvy Result EncounterGeneric External Data ProviderNOMS External Department UnsolicitedStart: 03-18-2024 End: 35-25-0238Jnluzq flowsEdward Emerson MD Work Phone: NOMS CI FM 100Start: 03-18-2024 End: 86-70-3286Yywsqk flowsEdward Emerson MD Work Phone: N[facility] CI FM 100Start: 03-18-2024 End: 82-74-6635Aicasb outpatient visit 15 minutesStanley Emerson MD Work Phone: N[facility] CI FM 100Comment on above:Pneumonia of right lower lobe due to infectious organismStart: 03-18-2024 End: 28-15-3722xikjjbozreFKJENB J HEMEYERNot AvailableStart: 03-08-2024 End: 99-36-1860Bcucbis encounter procedureMD Stanley Emerson Work Phone: [facility] Urgent Care Tom Work Phone: Start: 03-08-2024 End: 52-32-7580wfbzzqieogBJ Stanley Emerson Work Phone: [facility] Work Phone: Start: 03-04-2024 End: 45-12-8387Ypgssgtvf Result EncounterGeneric External Data ProviderNOMS External Department UnsolicitedStart: 03-04-2024 End: 86-59-1692Pxqwraiev Result EncounterGeneric External Data ProviderNOMS External Department UnsolicitedStart: 03-02-2024 End: 96-82-0558dctattfhetIsfsio X OrzechFacility:EU BellevueStart: 03-02-2024 End: 13-58-2581Adrvfkd encounter procedureAurora X Orzech [facility] start: 02-24-2024 End: 69-46-0880Fxxvlwrbtxqq / ancillary services managementGarnet Health Medical CenterComment on above:Paroxysmal atrial fibrillation (Multi)Start: 02-24-2024 End: 99-23-5482pqbcnxcvyvOHJXUSJasper Memorial Hospital AmbulatoryStart: 02-17-2024 End: 41-50-5815vqqpgyoawlCAFURZ J HEMEYERNot AvailableStart: 02-17-2024 End: 88-50-8465Esbutw outpatient visit 15 minutesStanley Emerson MD Work Phone: [facility] 100Comment on above:Pneumonia of left lower lobe due to infectious organism (Primary Dx); Simple chronic bronchitis (CMS/HCC)Start: 02-10-2024 End: 72-22-0996Zsstwt outpatient visit 40 minutesTeo Al MD Work Phone: [facility] CenterComment on above: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 (Pr imary Dx); Paroxysmal atrial fibrillation (Multi); High risk medication use; S/P PTCA (percutaneous transluminal coronary angioplasty); Cardiomyopathy, ischemic; ST elevation myocardial infarction (STEMI), unspecified artery (Multi); Dyslipidemia; Stage 3a chronic kidney disease (Multi); Transient cerebral ischemia, unspecified type; BMI 26.0-26.9,adult; Former smoker; QT prolongationStart: 02-10-2024 End: 60-64-2319lyvkxvbrhjLZKTSKJasper Memorial Hospital AmbulatoryStart: 02-04-2024 End: 02-86-5298uuadyazguyXZ Edludy Rich Hemeyer Work Phone: [facility] Work Phone: Start: 02-04-2024 End: 25-02-4710Lvgokvh encounter procedureMD Edludy Emerson Work Phone: [facility] Work Phone: Start: 01-29-2024 End: 02-88-3055bcitixofckFOQZME J HEMEYERNot AvailableStart: 53-68-0766Ksa- patient / Non-visitMD Edludy Emerson Work Phone: [facility] Work Phone: Start: 67-71-9039fswoubwmcdBamzxj X OrzechFacility:EU BellevueStart: 14-95-0209Mwi-patient / Non-visitMD Edludy Hemechery Work Phone: [facility] Work Phone: Start: 90-71-1573Mmf-patient / Non-visitMD Edludy Emerson Work Phone: [facility] Work Phone: Start: 01-16-2024 End: 46-96-1802Uliaprshnl and management of inpatientMD Edludy Emerson Work Phone: [facility] Work Phone: Start: 57-19-5166Idi-patient / Non-visitMD Edludy Hemechery Work Phone: [facility] Work Phone: Start: 01-14-2024 End: 76-38-5427Qedqvtzov to same day surgery centerMD Edludy Hemeyer Work Phone: [facility] Work Phone: Start: 01-14-2024 End: 60-82-2789vfkevzvzkjQP Edludy Emerson Work Phone: [facility] Work Phone: Start: 12-26-2023 End: 07-17-7672Hwqskxx encounter procedureMD Edludy Hemeyer Work Phone: [facility]art: 12-26-2023 End: 86-25-2063uqxgcnymckRZ Edludy J Hemeyer Work Phone: [facility] Work Phone: Start: 12-25-2023 End: 71-41-0284qsxonmiofxHhslgq J GalterrieFacility:EU BellevueStart: 12-25-2023 End: 90-05-1139Gltsxcy encounter procedureAlyskhoi Gomez [facility] start: 11-19-2023 End: 02-41-1101qfiaxihdwjPEZFTO J HEMEYERNot AvailableStart: 11-04-2023 End: 92-67-6524Rsecikh encounter procedureAurora X Elvi [facility] start: 10-22-2023 End: 37-43-3503dbeiaxmutnNE Edludy Rich Hemeyer Work Phone: [facility] Work Phone: Start: 10-22-2023 End: 43-05-4148Fbzrjtf encounter procedureMD Edludy Hemeyer Work Phone: [facility] Work Phone: Start: 90-70-4859Jjd-patient / Non-visitMD Stanley Hemechery Work Phone: [facility] Work Phone: Start: 10-07-2023 End: 91-21-2041Oqzjexo encounter procedurePatamara SAMUELS [facility] Start: 10-03-2023 End: 59-16-6765Van Drop offPatamara Hall SAMUELS [facility] Start: 10-03-2023 End: 07-30-9079Sjnescc encounter procedurePatriczahida Hall SAMUELS [facility] Start: 17-09-3184Qqk-patient / Non-visitMD Stanley Emerson Work Phone: [facility] Nephrology Work Phone: Start: 98-76-0030QsydmnizkmaiyjwPJ Edludy Hemeyer Work Phone: [facility] Southtart: 09-18-2023 End: 82-43-5694rvjmpxovsyBL Edludy J Hemeyer Work Phone: [facility] Work Phone: Start: 09-18-2023 End: 26-96-8860Jbnweym encounter procedureMD Edward Hemeyer Work Phone: [facility] Vascular Surgery Work Phone: Start: 09-11-2023 End: 13-42-2083Zhwdozf encounter procedurePatriczahida SAMUELS [facility] Start: 08-18-2023 End: 64-29-5694deksqijfoyWW Edludy J Hemeyer Work Phone: [facility] Work Phone: Start: 08-18-2023 End: 37-90-2514Famwqpe encounter procedureMD Stanley Emerson Work Phone: [facility] [place] Work Phone: Start: 08-15-2023 End: 76-57-7575Egifjyr encounter procedureKatia SAMUELS [facility] Start: 06-30-2023 End: 08-01-1572Ftmglru encounter procedurePatamara SAMUELS [facility] start: 06-16-2023 End: 16-91-5703Lrtwrjc encounter procedureKatia SAMUELS [facility] start: 06-10-2023 End: 92-91-5189Qggijdd encounter procedureKatia SAMUELS [facility] Start: 05-06-2023 End: 16-79-3825mjkpodnupzZzeh Bakhous [facility] [employer] Other Start: 31-98-7833Rpcbvxzvr encounterAziz BakhousFPG NephrologyStart: 04-16-2023 End: 65-10-9331ieybbvujqsZhch Bakhous [facility] [employer] Other Start: 25-43-7687Cosxfvhyx encounterAziz BakhousFPG NephrologyStart: 04-15-2023 End: 14-57-5331uiiixcvoayRyzt Bakhous Other [facility] [employer] Other Start: 19-24-5711Sjbmnq outpatient visit 25 minutes Celia GriffinMIGUEL NephrologyStart: 04-08-2023 End: 23-73-4990mqzavixcxuTH Stanley Emerson Work Phone: [facility] Work Phone: Start: 04-08-2023 End: 85-83-0067Fpbjuwf encounter procedureMD Stanley Emerson Work Phone: [facility]art: 03-11-2023 End: 82-44-3318Pno Drop offPatrick R [employer] [facility] Start: 03-11-2023 End: 28-51-9194Avmzard encounter procedurePatrick R [employer] [facility] Start: 80-27-0150Zfuzmw outpatient visit 25 minutes Stanley Emerson Work Phone: [phone]-QvfbcJames [place]ille [address] DO Work Phone: Start: 57-53-2598ejkztmrxfkEl. Teo Al Facility:[id number]: 12-25-2022 End: 40-62-0446Tvsznml encounter procedurePatrick R SAMUELS [facility] Start: 12-10-2022 End: 71-62-8377Srw Drop offPatrick R [employer] [facility] Start: 12-10-2022 End: 88-50-7347Ybxqopk encounter procedurePatrick R [employer] [facility] Start: 10-04-2022 End: 67-65-3172Biutipg encounter procedurePatamara SAMUELS [facility] Start: 09-18-2022 End: 18-49-4023Xctkzpq encounter procedurePatamara SAMUELS [facility] Start: 09-15-2022 End: 43-87-4806usurmfyhysHI EDWARD HEMEYER .Facility:K5Egvmc: 09-12-2022 End: 25-00-3124cdnzroffpeBJ EDWARD HEMEYER .Facility:P0Lldqm: 09-08-2022 Encounter for preprocedural laboratory examinationAZJESSIE AMAYAGuernsey Memorial Hospitaltart: 09-04-2022 End: 90-89-6042ympdwnplkyOS EDWARD HEMEYER .Facility:H4Lpayv: 09-04-2022 Encounter for preprocedural cardiovascular examinationDR KATIA SAMUELS .[facility] 09-02-2022 End: 67-54-6492nwddxkkytuNQ EDWARD HEMEYER .Facility:A5Qbyck: 09-02-2022 End: 95-09-9284Yrmiiqnpe for preprocedural laboratory examinationDR EDWARD HEMEYER .Facility:S8Wapyy: 09-02-2022 End: 68-82-7764pqosfwzlhjBI EDWARD HEMEYER .Facility:K3Bwaei: 09-02-2022 End: 42-08-3377Wfgfwlvvs for preprocedural cardiovascular examinationDR EDWARD HEMEYER .Facility:B7Bednl: 08-21-2022 End: 51-70-7039vllymvwkotGhcxmu Ruttino Other [place] [employer] Other Start: 21-53-7444Smqzyn-up encounterCarlene Thomas Vascular SurgeryStart: 08-16-2022 End: 06-17-2408kgjqlrqkklAF Stanley Emerson Work Phone: [facility] Work Phone: Start: 08-16-2022 End: 49-86-3242Onvhrad encounter procedureMD Stanley Emerson Work Phone: [facility] [place] Work Phone: Start: 07-31-2022 End: 72-25-6771Xoxpofp encounter procedurePatrick Isabel SAMUELS [facility] Start: 07-25-2022 End: 99-96-0758uecmvsaiijBkolvrr [place] Other [place] [employer] Other Start: 88-79-3130Dytzwj follow up visit related to original pxMatthew SergeFPG Vascular SurgeryStart: 07-24-2022 End: 14-77-9912npdztreqgzDZ Stanley Emerson Work Phone: [facility] Work Phone: Start: 07-24-2022 End: 01-73-0610Gxkdgus encounter procedureMD Stanley Emerson Work Phone: [facility]-MRI [facility] [place] Work Phone: Start: 07-02-2022 End: 58-31-8999Ytiqblneik and management of inpatientMD Stanley Emerson Work Phone: [facility] [place] [facility] Work Phone: Start: 06-21-2022 End: 81-98-2921Eoorxse encounter procedureMD Stanley Emerson Work Phone: [facility]na[employer] Work Phone: Start: 06-19-2022 End: 03-82-5264rxpwjzjapcUlqfvdw [place] Other [facility] [employer] Other Start: 73-35-7494Zmwuvz outpatient visit 25 minutes Margarito Larry Vascular SurgeryStart: 06-12-2022 End: 57-42-5461asuoelqzjdJM Stanley Emerson Work Phone: [facility] Work Phone: Start: 06-12-2022 End: 10-08-0435Jfzcgnr encounter procedureMD Stanley Singhchery Work Phone: [facility] [place] Work Phone: Start: 06-11-2022 End: 01-60-8465Xjgmaad encounter procedureJEERICA QUINNRY [facility] start: 06-06-2022 End: 47-59-5389yopgcmlktmIpjcxbv [place] Other [facility] [employer] Other Start: 34-78-5767Rkpoay outpatient visit 25 minutes Margarito Larry Vascular SurgeryStart: 06-04-2022 End: 70-33-8271ygczslusfbMsvc Bakhous Other [facility] [employer] Other Start: 21-73-6582Zgtuat outpatient visit 25 minutes Celia Acevedo Nephrology ClydeStart: 82-34-8360Yvcyxj outpatient visit 25 minutesStanley Emerson Work Phone: [phone]-[place] [facility] DO Work Phone: Start: 38-06-2351biqnjfrohwMpSigrid Emerson Facility:[id number]: 33-20-1282faijicrutnLfSigrid EmersonFacility:9090 Start: 86-50-8598oikjlewycxOb. Lesleeludy Mercado IdaniaFacility:9090Start: 68-88-0939qjrfxcgikjIb. Teo AlFacility:9090Start: 05-18-20[address] Teo AlFacility:9090Start: 94-87-1561klbizazxlzFo. Stanley Mercado IdaniaFacility:9090Start: 31-97-1982DxvxdniqnqzchwuXM Stanley Emerson Work Phone: [facility] CenterComment on above: Problem List clean-up per request of Phys. EHR CmteStart: 70-80-7260mfubarxqmc Dr. Teo AlFacility:9090Start: 05-16-2022 End: 19-23-9518Fslnqjbyw for preprocedural cardiovascular examinationMD Stanley Emerson Work Phone: [facility] Southtart: 05-16-2022 End: 95-76-6379Ixlsjjmdwn and management of inpatientMD Edludy Emerson Work Phone: [facility] Work Phone: Start: 05-16-2022 End: 85-15-3181appwwerpnjVW LESLEELUDY EMERSON .Facility:D0Qsebd: 05-15-2022 End: 35-80-8265fmtlupytehXG STANLEY EMERSON .Facility:K0Flizb: 01-04-2022 End: 28-23-9074vxwacxtfdtZS STANLEY LUISCHERY .Facility:E7Numvzct encounter status Stanley Emerson Work Phone: [phone]-Rcmtd [facility] DO Work Phone: End: 64-56-5247Rgrpkmh encounter statusStanley Emerson Work Phone: [phone]-Fnzzd [facility] 250 DO Work Phone: Procedures DateProcedureProcedure DetailPerforming ClinicianStart: 28-28-5604PVBZ CBC WITH PLATELET NO DIFFERENTIALGeneric External Data ProviderStart: 29-19-5651PBK HEMOGLOBINGeneric External Data ProviderStart: 68-68-4161EkzwjbztuoMijmqwy SAMUELS Start: 37-34-5748OLGA CBC WITH PLATELET NO DIFFERENTIAL Generic External Data ProviderStart: 24-84-0233QS Angiogram w/TLA/Stent Left Leg (Left)Stanley Emerson MD Work Phone: Start: 32-33-9950Wcbea of magnesiumWaqar Pink MD Work Phone: Start: 52-24-7868GAXJH METABOLIC PANEL W/ REFLEX TO MG FOR LOW KKim S Joesph CASILLAS Work Phone: [phone]: 32-52-2718Bfq routine ecg w/least 12 lds w/i&r Waqar Pink MD Work Phone: Start: 63-97-8278Nqj-scan xtr veins complete bilateral studyTarimo Plata MD Work Phone: Start: 56-78-2211Mepbb centrifuge enhncd id imfluor stain eaWaqar Pink MD Work Phone: Start: 05-10-8235UWNVO METABOLIC PANEL W/ REFLEX TO MG FOR LOW KKim S Joesph CASILLAS Work Phone: Start: 54-89-8375Wwrvvjosajk timeWaqar Pink MD Work Phone: Start: 37-96-7741Autdg of ferritinWaqar Pink MD Work Phone: Start: 85-85-9113QDUBV METABOLIC PANEL W/ REFLEX TO MG FOR LOW KKim Aidee Pink MD Work Phone: Start: 03-89-9397BOIVTGJ B12 & FOLATEWaqar Pink MD Work Phone: Start: 10-02-2024 End: 86-07-3431Gtwrpnf bacterial quanttative colony count urineWaqar Pink MD Work Phone: Start: 90-03-3016MCWX CULT,URINEGeneric External Data ProviderStart: 33-00-3744Tpvke s aureus methicillin resist amp probe tqWaqar Pink MD Work Phone: Start: 94-66-7704AEWOHJUHERA PANEL, MOLECULAR, WITH COVID-19Waqar Pink MD Work Phone: Start: 40-42-7594Rzrdeqlh mycoplsmWaqar Pink MD Work Phone: Start: 67-95-5133Odggb metabolic panel calcium total Waqar Pink MD Work Phone: Start: 61-65-1034Zwxuhfxrivz [Units/volume] in Serum or PlasmaRuby Montana MD Work Phone: Start: 24-59-7809DUROZ CULTURE - FRMCGeneric External Data ProviderStart: 42-69-3107Uyhqu Angel Emerson MD Work Phone: Start: 62-81-3107TQTWF CULTURE - FRMCGeneric External Data ProviderStart: 48-15-9453Vqujt Ezequiel Bo MD Work Phone: Start: 70-62-4138Ayour dip stick/tablet rgnt non-auto w/o micrscpEdludy Emerson MD Work Phone: Start: 47-60-1368Yrh routine ecg w/least 12 lds w/i&r Teo Al MD Work Phone: Start: 14-83-0564MNW LIPID PROFILE (FASTING)Generic External Data ProviderStart: 16-58-7583LDO THYROID STIM HORMONEGeneric External Data ProviderStart: 55-28-4718XNAIxihdms External Data ProviderStart: 07-29-2024 Ecg routine ecg w/least 12 lds w/i&rHignacio Al MD Work Phone: Start: 10-86-3477BYNJmkbucl External Data Provider Start: 72-61-3047KNK THYROID STIM HORMONEGeneric External Data ProviderStart: 13-94-8580DXLCOA PROTHROMBIN TIME INR W/O Garry Sequeira MD Work Phone: Start: 31-91-4026TKGPxujrpo External Data Provider Start: 21-77-1541Kjk routine ecg w/least 12 lds w/i&Jackelin Al MD Work Phone: Start: 22-14-3112CYDJJ CULTURE 2Generic External Data ProviderStart: 68-44-8693APPUT CULTURE 1Generic External Data ProviderStart: 20-21-7268Irfalxaf cystoscopyPatrick SAMUELS Start: 40-02-5333QWS HEMOGLOBINGeneric External Data ProviderStart: 61-84-3518Whegl Strep (POC)MD Stanley Emerson Work Phone: Start: 61-99-3110Tgydw chest X-rayMD Angel Idania Work Phone: Start: 11-38-0613DSQ HEMOGLOBINGeneric External Data ProviderStart: 33-43-6793Nlw routine ecg w/least 12 lds w/i&Jackelin Al MD Work Phone: Start: 96-01-3960Vnaerxwz identified in Urine by CultureMD Angel Idania Work Phone: Start: 00-20-5739Qplog cultureMD Stanley Idania Work Phone: Start: 46-61-8826Nlgvnren identified in Urine by CultureMD Angel Idania Work Phone: Start: 80-82-9388Xvhxo cultureMD Edludy Emerson Work Phone: Start: 24-15-5280Zitau chest X-rayMD Stanley Idania Work Phone: Start: 40-33-6844LD Iliac/Fem w/LHCMD Stanley Idania Work Phone: Start: 47-82-3958KO LHC & COR AngioMD Stanley Idania Work Phone: Start: 14-81-9507XB PCI AMI 1st Vessel LAD DESMD Stanley Emerson Work Phone: Start: 99-70-8467NjpnbsmdpmpMA Stanley Emerson Work Phone: Start: 54-87-1743Cwybivur cystoscopyPatamara SAMUELS Start: 88-74-4777AV of abdomen and pelvis without contrastMD Stanley Emerson Work Phone: Start: 78-83-1736Wtolnooges, device (physical object) Katia SAMUELS Start: 82-44-5140Qhugsmchbenmf resection of bladder neoplasmKatia SAMUELS Start: 42-04-1975Uoypjcho tomography angiography of abdominal and/or pelvic blood vesselMD Stanley Emerson Work Phone: Start: 28-37-4095MvtdajgklxHsjivll WATERS Start: 90-40-0349Mcxxfmjloaad repair of abdominal aortic aneurysmMD Stanley Emerson Work Phone: Start: 14-68-7536Teindrbh tomography angiography of abdominal and/or pelvic blood vesselMD Stanley Emerson Work Phone: Start: 50-51-8771Bjpvsxupcwcq myocardial perfusion stress studyMD Stanley Emerson Work Phone: Start: 49-87-4873Ldj and Parasite Result 1MD Stanley Emerson Work Phone: Start: 89-09-0449Qmd OR parasites identificationMD Stanley Emerson Work Phone: Start: 38-61-2325Rvpuf cultureMD Stanley Emerson Work Phone: Cataract surgeryEdludy SinghGATe Technology Work Phone: Insertion of stent in inferior vena cavaEdludy Rich Reppler Work Phone: Operation on bladderEdward Layla SinghGAT[employer] Work Phone: Urinary catheter placementEdward Layla Emerson Work Phone: NEGATED: Highlighted row has not occurred!Colonoscopy Stanley Emerson Work Phone: Plan of Treatment DateCare ActivityDetailAuthorStart: 11-20-7185Xzptlpb stimulating hormone measurementTSChildren's Hospital of [facility]: 08-06-2025 EchocardiographyEchocardiogramC[facility]: 05-13-2025 Medicare Annual Wellness (AWV)Medicare Annual Wellness (AWV)[facility] Start: 05-10-2025 End: 73-90-9253Inplmzp encounter fqswkvatj27/16/2025 2:00 PM EST Office Visit [address] Medicine [address] [place] [address] Stanley Emerson MD [address] [place] [address] (Fax)[address] MedicineStart: 03-29-2025 End: 69-07-0250Jabarfh encounter /04/2025 11:00 AM EST Office Visit [facility] [address] [facility] [address] [place] [address] Teo Al MD [address] [facility] [address] [place] [address] [facility]Start: 03-21-2025 End: 68-22-9262Esesucvu Pulmonary Function Test (Spirometry/DLCO/Lung Volumes) Complete Pulmonary Function Test (Spirometry/DLCO/Lung Volumes) PFT Routine Paroxysmal atrial fibrillation (Multi) High risk medication use Expected: 03/21/2025 (Approximate), Expires: 05/21/2025[facility] Work Phone: Comment on above:Expected: 03/21/2025 (Approximate), Expires: 05/21/2025Start: 03-21-2025 End: 52-47-3151PS Chest 2 ViewsXR chest 2 views Imaging Routine Paroxysmal atrial fibrillation (Multi) High risk medication use Expected: 03/21/2025, Expires: 05/21/2025[facility] Work Phone: Comment on above:Expected: 03/21/2025, Expires: 05/21/2025Start: 03-12-2025 End: 07-00-6208Fbfshdqu Pulmonary Function Test (Spirometry/DLCO/Lung Volumes) Complete Pulmonary Function Test (Spirometry/DLCO/Lung Volumes) PFT Routine Paroxysmal atrial fibrillation (Multi) High risk medication use Expected: 03/12/2025 (Approximate), Expires: 09/10/2025[facility] Work Phone: Comment on above:Expected: 03/12/2025 (Approximate), Expires: 09/10/2025Start: 01-29-2025 End: 08-70-5171Boqsqrcwo aminotransferase [Enzymatic activity/volume] in Serum or Plasma by With P-5'-PAspartate Aminotransferase Lab Routine Paroxysmal atrial fibrillation (Multi) High risk medication use Expected: 01/29/2025, Expires: 07/29/2025[facility] Work Phone: Comment on above:Expected: 01/29/2025, Expires: 07/29/2025Start: 01-29-2025 End: 42-63-7953Vdspi metabolic 2000 panel - Serum or PlasmaBasic Metabolic Panel Lab Routine Paroxysmal atrial fibrillation (Multi) High risk medication use Ex pected: 01/29/2025, Expires: 07/29/2025[facility] Work Phone: Comment on above:Expected: 01/29/2025, Expires: 07/29/2025Start: 01-29-2025 End: 49-27-8081Cijxzbsf Pulmonary Function Test (Spirometry/DLCO/Lung Volumes) Complete Pulmonary Function Test (Spirometry/DLCO/Lung Volumes) PFT Routine Paroxysmal atrial fibrillation (Multi) High risk medication use Expected: 01/29/2025 (Approximate), Expires: 07/29/2025[facility] Work Phone: Comment on above:Expected: 01/29/2025 (Approximate), Expires: 07/29/2025Start: 01-29-2025 End: 04-30-6282Gwmfp 1996 panel - Serum or PlasmaLipid Panel Lab Routine Dyslipidemia Expected: 01/29/2025 (Approximate), [facility] Work Phone: Comment on above:Expected: 01/29/2025 (Approximate), Expires: 07/29/2025Start: 01-29-2025 End: 31-09-3440Okvmfwflako [Units/volume] in Serum or PlasmaThyroid Stimulating Hormone Lab Routine Paroxysmal atrial fibrillation (Multi) High risk medication use Expected: 01/29/2025, Expires: [facility]/20[facility] Work Phone: Comment on above:Expected: 01/29/2025, Expires: 07/29/2025Start: 01-29-2025 End: 28-71-6874JP Chest 2 ViewsXR chest 2 views Imaging Routine Paroxysmal atrial fibrillation (Multi) High risk medication use Expected: 01/29/2025 (Approximate), Expires: 07/29/2025[facility] Work Phone: Comment on above:Expected: 01/29/2025 (Approximate), Expires: 07/29/2025Start: 86-09-8323Zspattfxa vaccinationInfluenza Vaccine (#1) [facility] [facility] CenterStart: 47-56-6106ZcczzzygunjcpwoxFjiqdrosscpfnfGezpddsihc Hospitals of ClevelandStart: 11-19-2024 End: 79-77-7620Pwlcdcc aminotransferase [Enzymatic activity/volume] in Serum or Plasma by With P-5'-PAlanine Aminotransferase Lab Routine Paroxysmal atrial fibrillation (Multi) High risk medication use Expected: 11/19/2024 (Approximate), Ex[facility]: [facility]/2025[facility] Work Phone: Comment on above:Expected: 11/19/2024 (Approximate), Expires: 05/21/2025Start: 11-19-2024 End: 99-86-4965Tgvnznbsk aminotransferase [Enzymatic activity/volume] in Serum or Plasma by With P-5'-PAspartate Aminotransferase Lab Routine Paroxysmal atrial fibrillation (Multi) High risk medication use Expected: 11/19/2024 (Approximate), Expires: 05/21/2025[facility] Work Phone: Comment on above:Expected: 11/19/2024 (Approximate), Expires: 05/21/2025Start: 11-19-2024 End: 25-89-9501Vxsef metabolic 2000 panel - Serum or PlasmaBasic Metabolic Panel Lab Routine Paroxysmal atrial fibrillation (Multi) High risk medication use Ex pected: 11/19/2024 (Approximate), Expires: 05/21/2025[facility] Work Phone: Comment on above:Expected: 11/19/2024 (Approximate), Expires: 05/21/2025Start: 11-19-2024 End: 09-65-5016AHM panel - Blood by Automated countCBC Lab Routine Paroxysmal atrial fibrillation (Multi) High risk medication use Expected: 11/19/2024 (Approximate), Expires: 05/21/2025[facility] Work Phone: Comment on above:Expected: 11/19/2024 (Approximate), Expires: 05/21/2025Start: 11-19-2024 End: 25-97-0803Wqaww 1996 panel - Serum or PlasmaLipid Panel Lab Routine Dyslipidemia Expected: 11/19/2024 (Approximate), Expires: 05/21/2025[facility] Work Phone: Comment on above:Expected: 11/19/2024 (Approximate), Expires: 05/21/2025Start: 11-19-2024 End: 61-36-2928Xkcfskvnmhb [Units/volume] in Serum or PlasmaThyroid Stimulating Hormone Lab Routine Paroxysmal atrial fibrillation (Multi) High risk medication use Expected: 11/19/2024 (Approximate), Expires: 05/21/2025[facility] Work Phone: Comment on above:Expected: 11/19/2024 (Approximate), Expires: 05/21/2025Start: 11-09-2024 End: 25-83-6097Dxbehqj encounter procedureNOMS CI FM 100Comment on above:Arrived Start: 10-14-2024 End: 07-84-5334Gkuogux encounter esenxryfg37/22/2025 2:30 PM EDT Office Visit [facility]OM[facility] CI FM [address] [place] [address] Stanley Emerson MD [address] [place] [address] (Fax)NOMS CI FM 100Start: 37-18-3089JcscvfalePremier Health Miami [facility] Hospital Southtart: 10-08-2024 End: 80-10-1072Atqfm metabolic 2000 panel - Serum or PlasmaBasic Metabolic Panel Lab Routine Pre-operative cardiovascular examination Expected: 10/08/2024 (Celine roximate), Expires: 10/08/2025[facility] Work Phone: Comment on above:Expected: 10/08/2024 (Approximate), Expires: 10/08/2025Start: 10-08-2024 End: 50-60-0716QHH panel - Blood by Automated countCBC Lab Routine Pre-operative cardiovascular examination Expected: 10/08/2024 (Approximate), Expires: 10/08/2025[facility] Work Phone: Comment on above:Expected: 10/08/2024 (Approximate), Expires: 10/08/2025Start: 10-08-2024 End: 51-64-0789FD and aPTT panel - Platelet poor plasma by Coagulation assay Coagulation Screen Lab Routine Pre-operative cardiovascular examination Bradyarrhythmia on pre-operative cardiovascular examination Pre-operative cardiovascular examination, supraventricular arrhythmia Expected: 10/08/2024 (Approximate), Expires: 10/08/2025[facility] Service Area Work Phone: Comment on above:Expected: 10/08/2024 (Approximate), Expires: 10/08/2025Start: 59-79-7128Fuzxuh Wellness Visit (Medicare)Annual Wellness Visit (Medicare)Bon SecSalespush.com [facility] HospitalStart: 60-51-6229Zcgsj culture [facility]: 05-58-8756Nlusjcnl identified in Urine by CultureUrine CulturePremier Health [facility]htart: 51-40-8468Rgybk culturePremier Health [facility] Southtart: 33-04-1601Cwxwedjj identified in Urine by CultureUrine CulturePremier Health [facility]ht[facility]: 09-23-2024 US Lower extremity artery - bilateralPremier Health Miami Valley Hospital Southtart: 09-21-2024 End: 12-25-6500Roeikzo encounter bcewjmivh49/29/2025 2:15 PM EDT Office Visit NOMS CI FM 100 112 [facility] 100 [place] [address] Stanley Emerson MD 112 [facility] 100 [place] [address] 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 disturbance, psychotic disturbance, mood disturbance, or anxiety (CMS/HCC); Hallucinations; Need for prophylaxis against urinary tract infection; Indwelling urinary catheter present; Former smoker; Polypharmacy; OverweightNOMS CI FM 100Comment on above: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 disturbance, psychotic disturbance, mood disturbance, or anxiety (CMS/HCC); Hallucinations; Need for prophylaxis against urinary tract infection; Indwelling urinary catheter present; Former smoker; Polypharmacy; OverweightStart: 64-80-0393TTWVQ-19 Vaccine ()COVID-19 Vaccine ()[facility] HospitalStart: 71-75-2283FJAMK-19 Vaccine ()COVID-19 Vaccine ()[facility]art: 09-10-2024 End: 03-58-5613Iucmedivx aminotransferase [Enzymatic activity/volume] in Serum or Plasma by With P-5'-PAspartate Aminotransferase Lab Routine Dyslipidemia Expected: 09/10/2024 (Approximate), Expires: 09/10/2025[facility] Work Phone: Comment on above:Expected: 09/10/2024 (Approximate), Expires: 09/10/2025Start: 09-10-2024 End: 90-24-9861Qvyjy metabolic 2000 panel - Serum or PlasmaBasic Metabolic Panel Lab Routine Cardiomyopathy, ischemic 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 Expected: 09/10/2024 (Approximate), Expires: 09/10/2025[facility] Work Phone: Comment on above:Expected: 09/10/2024 (Approximate), Expires: 09/10/2025Start: 09-10-2024 End: 43-27-3956Jgzlhslxwvb [Units/volume] in Serum or PlasmaThyroid Stimulating Hormone Lab Routine Dyslipidemia Expected: 09/10/2024 (Approximate), Expires: [facility] Work Phone: Comment on above:Expected: 09/10/2024 (Approximate), Expires: 09/10/2025Start: 09-09-2024 End: 78-25-8271Lpnkfaoqbcg [Units/volume] in Serum or PlasmaThyroid Stimulating Hormone Lab Routine Paroxysmal atrial fibrillation (Multi) High risk medication use Expected: 09/09/2024 (Approximate), Expires: 07/29/2025[facility] Work Phone: Comment on above:Expected: 09/09/2024 (Approximate), Expires: 07/29/2025Start: 07-29-2024 End: 68-32-3094Yhhtuvx encounter cuhovhlei14/06/2025 11:00 AM EST Office Visit [facility] [address] [facility] [address] [place] [id number] Teo Al MD [address] [facility], [address] [place] [address] [facility] CenterStart: 05-21-2024 End: 65-18-5881Wazcxrg aminotransferase [Enzymatic activity/volume] in Serum or Plasma by With P-5'-PAlanine Aminotransferase Lab Routine Paroxysmal atrial fibrillation (Multi) High risk medication use Expected: 05/21/2024 (Approximate), Expires: 05/21/2025[facility] Work Phone: Comment on above:Expected: 05/21/2024 (Approximate), Expires: 05/21/2025Start: 05-21-2024 End: 55-65-8456Rvthrlppb aminotransferase [Enzymatic activity/volume] in Serum or Plasma by With P-5'-PAspartate Aminotransferase Lab Routine Paroxysmal atrial fibrillation (Multi) High risk medication use Expected: 05/21/2024 (Approximate), Expires: 05/21/2025[facility] Area Work Phone: Comment on above:Expected: 05/21/2024 (Approximate), Expires: 05/21/2025Start: 05-21-2024 End: 14-81-6117Iqeyp metabolic 2000 panel - Serum or PlasmaBasic Metabolic Panel Lab Routine Paroxysmal atrial fibrillation (Multi) High risk medication use Ex pected: 05/21/2024 (Approximate), Expires: 05/21/2025[facility] Work Phone: Comment on above:Expected: 05/21/2024 (Approximate), Expires: 05/21/2025Start: 05-21-2024 End: 14-29-7367Tqlcqfkhvbe [Units/volume] in Serum or PlasmaThyroid Stimulating Hormone Lab Routine Paroxysmal atrial fibrillation (Multi) High risk medication use Expected: 05/21/2024 (Approximate), Expires: 05/21/2025[facility] Work Phone: Comment on above:Expected: 05/21/2024 (Approximate), Expires: 05/21/2025Start: 05-13-2024 End: 23-49-2203Lizfzlv encounter procedureNOMS CI FM 100Comment on above: Encounter for Medicare annual wellness exam; Advance directive discussed with patient; Encounter for screening for other disorder; Screening for alcohol problem; Former smoker; PolypharmacyStart: 05-10-2024 End: 99-27-7109Ktqwlmz encounter geycpolqa74/16/2024 11:00 AM EST Office Visit [facility] CI FM [address] [place] [address] Stanley Emerson MD 112 [facility] 100 [place] [address] (Fax) Essential hypertension, benign (CMS/HCC); Hypertensive nephropathy (CMS/HCC); Stage 3a chronic kidney disease (HCC) (CMS/HCC); Microalbuminuria; Panlobular emphysema (CMS/HCC);Simple chronic bronchitis (CMS/HCC); Mixed dyslipidemia (CMS/HCC); Polypharmacy; Mixed conductive and sensorineural hearing loss of both ears; Former smoker; OverweightNOMS CI FM 100Comment on above:Essential hypertension, benign (CMS/HCC); Hypertensive nephropathy (CMS/HCC); Stage 3a chronic kidney disease (HCC) (CMS/HCC); Microalbuminuria; Panlobular emphysema (CMS/HCC); Simple chronic bronchitis (CMS/HCC); Mixed dyslipidemia (CMS/HCC); Polypharmacy; Mixed conductive and sensorineural hearing loss of both ears; Former smoker; OverweightStart: 05-06-2024 End: 56-53-1511Dhucpjq encounter procedureNOMS CI FM 100Start: 04-12-2024 End: 69-47-8355Kfxklsk encounter kuicjcklb01/18/2024 3:20 PM EST Office Visit [facility] [address] [address] Teo Al MD 703 [facility] 2, [facility] 250 [place] [address] [facility]Start: 03-18-2024 End: 53-49-1412Vdqpoil encounter nlcydwbih96/24/2024 11:30 AM EDT Office Visit [facility] CI FM 100 [address] [place] [address] [place] [address] Stanley Emerson MD [address] [place] [address] (Fax) Pneumonia of right lower lobe due to infectious organismNOMS CI FM 100Comment on above:Pneumonia of right lower lobe due to infectious organismStart: 03-11-2024 End: 68-94-5812Pejqxiwl Pulmonary Function Test (Spirometry/DLCO/Lung Volumes) Complete Pulmonary Function Test (Spirometry/DLCO/Lung Volumes) PFT Routine Paroxysmal atrial fibrillation (Multi) High risk medication use Expected: 03/11/2024 (Approximate), Expires: 02/09/2025[facility] Work Phone: Comment on above:Expected: 03/11/2024 (Approximate), Expires: 02/09/2025Start: 03-11-2024 End: 79-10-9411WR Chest 2 ViewsXR chest 2 views Imaging Routine Paroxysmal atrial fibrillation (Multi) High risk medication use Expected: 03/11/2024, Expires: 02/09/2025[facility] Work Phone: Comment on above:Expected: 03/11/2024, Expires: 02/09/2025Start: 77-95-1604Kpjpb chest X-rayXR chest 2V*[facility]: 02-18-2024 End: 70-46-3839Lowzmtebfxwu / ancillary services xtdrotbvdn66/25/2024 1:00 PM EDT Ancillary Procedure [address] [id number] uh [facility]usStart: 02-17-2024 End: 94-61-0797AMD 12 LeadECG 12 Lead ECG Routine Paroxysmal atrial fibrillation (Multi) Expected: 02/17/2024 (Approximate), Expires: 02/09/2025[facility] Work Phone: Comment on above:Expected: 02/17/2024 (Approximate), Expires: 02/09/2025Start: 02-10-2024 End: 31-12-8322Dgidmosmh aminotransferase [Enzymatic activity/volume] in Serum or Plasma by With P-5'-PAspartate Aminotransferase Lab Routine Paroxysmal atrial fibrillation (Multi) High risk medication use Expected: 02/10/2024 (Approximate), Expires: 02/09/2025[facility] Work Phone: Comment on above:Expected: 02/10/2024 (Approximate), Expires: 02/09/2025Start: 02-10-2024 End: 82-13-8231Hqrvy metabolic 2000 panel - Serum or PlasmaBasic Metabolic Panel Lab Routine Paroxysmal atrial fibrillation (Multi) High risk medication use Ex pected: 02/10/2024 (Approximate), Expires: 02/09/2025[facility] Work Phone: Comment on above:Expected: 02/10/2024 (Approximate), Expires: 02/09/2025Start: 02-10-2024 End: 75-86-7331Nuhkvircdnn [Units/volume] in Serum or PlasmaThyroid Stimulating Hormone Lab Routine Paroxysmal atrial fibrillation (Multi) High risk medication use Expected: 02/10/2024 (Approximate), Expires: 02/09/2025[facility] Work Phone: Comment on above:Expected: 02/10/2024 (Approximate), Expires: 02/09/2025Start: 63-49-7845MOERL-19 Vaccine ( season)COVID- 19 Vaccine ( season)[facility]: 06-52-2821Rwoegpzpr vaccinationInfluenza Vaccine (#1)[facility]: 44-80-5582KbjzttvolPremier Health [facility]htart: 01-23-2024 Bacteria identified in Urine by CulturePremier Health [facility]htart: 59-88-4688Jdwgnuqu to clinical allergistPremier Health [facility]ht[facility]: 96-96-0173Ncmxpcea to rehabilitation physicianMercy Health [facility] Start: 34-70-1750EDV, Provider: Teo Al, Status: Pen, Time: 11:50 AMFUV, Provider: Teo Al, Status: Pen, Time: 11:50 AM-[facility]- [address] DO Work Phone: Start: 10-46-7447Yabuvvdp of Coronary Artery, One Artery with Drug-eluting Intraluminal Device, Percutaneous ApproachDilation of Coronary Artery, One Artery with Drug-eluting Intraluminal Device, Percutaneous ApproachPremier Health [facility]htart: 34-82-7543Fxmoczonqel of Left Heart using Low Osmolar ContrastFluoroscopy of Left Heart using Low Osmolar ContrastPremier Health [facility] Hospital [facility]htart: 58-31-0334Ovoxuwdrgry of Multiple Coronary Arteries using Low Osmolar ContrastFluoroscopy of Multiple Coronary Arteries using Low Osmolar ContrastMercy Health Springfield Regional Medical Center Start: 53-48-2369Pgbydrzcurs of Cardiac Sampling and Pressure, Left Heart, Percutaneous ApproachMeasurement of Cardiac Sampling and Pressure, Left Heart, Percutaneous ApproachPremier Health [facility]htart: 81-88-2321Jacvwswx admissionPremier Health [facility]ht[facility]: 54-61-0193Mhfdszze to cardiac rehabilitation programPremier Health [facility]ht[facility]: 01-16-2024 [facility]: 60-48-4385KlqfwbihmPremier Health [facility]ht[facility]: 40-08-1759Hndrfopv identified in Urine by CulturePremier Health [facility]htart: 82-86-6915KXO, Provider: Teo Al, Status: Pen, Time: 10:10 AMFUV, Provider: Teo Al, Status: Pen, Time: 10:10 AMT[facility] 250 DO Work Phone: Start: 10-96-2025ML Abdomen WO and W contrast IV [facility]: 94-86-9394RQT of abdomen with contrastMR abdomen wo/w [facility]: 81-90-8070YxbboszzwPremier Health [facility]: 36-62-2012Orngjekwclh of Aorta and Bilateral Lower Extremity Arteries using Low Osmolar ContrastFluoroscopy of Aorta and Bilateral Lower Extremity Arteries using Low Osmolar ContrastPremier Health [facility]: 23-79-5243Gkzfmgghkix of Abdominal Aorta with Intraluminal Device, Percutaneous ApproachRestriction of Abdominal Aorta with Intraluminal Device, Percutaneous ApproachPremier Health [facility]: 54-63-0566IvzbmttygPremier Health [facility]: 61-61-7129Vtovnnjumq procedurePremier Health [facility]: 73-84-4310ItbhgztliPremier Health [facility]: 05-17-2022 End: 99-55-5939WkjniaqmpPremier Health [facility]htart: 94-76-5694Kegoxjpb to nephrologistPrem[facility] Health [facility]: 63-04-8748Budjrkyd to vascular surgeonPrem[facility] Health [facility]: 54-24-4543Kmynynfl admissionPremier Health [facility]ht[facility]: 98-12-8582EHW High Risk: (Elderly (60+) or Population) (1 - 1-dose 75+ series)RSV High Risk: (Elderly (60+) or Population) (1 - 1-dose 75+ series)[facility]: 69-29-6086GYY patients and/or patients aged 60+ years (1 - 1-dose 60+ series)RSV patients and/or patients aged 60+ years (1 - 1-dose 60+ series)[facility]: 14-86-2723Utqeowfx vaccine (1 of 2)Shingles vaccine (1 of 2)[facility]: 70-98-1301Whjyks Vaccines (1 of 2)Zoster Vaccines (1 of 2) [facility]: 30-30-8312PHsW/Tdap/Td Vaccines (1 - Tdap)DTaP/Tdap/Td Vaccines (1 - Tdap)[facility]: 28-64-4594BBdV/Tdap/Td vaccine (1 - Tdap)DTaP/Tdap/Td vaccine (1 - Tdap)[facility]: 06-59-4443Dutsl screening for proteinCKD: Urine Protein ScreeningC[facility] Clinic [facility]inte [facility]: 77-96-8724Ydxkngfw mellitus screeningDiabetes ScreeningUnOur Lady of Mercy Hospital: 89-09-9798Nybmdcnpyq ScreenDepression ScreenBon [facility]: 07-85-2674Ymtri panelLipidsBon [facility]: 91-84-0342Cokccqqerh measurementCreatinine LevelUnOur [facility] of Mercy Hospital: 1943 Lipid panelLipid PanelUnOur Lady of Mercy Hospital: 07-08-1944Medicare Annual Wellness VisitMedicare Annual Wellness Visit (AWV)[facility]: 52-06-4476Crzjohifc measurementPotassium [facility]eneStart: 30-00-2525Mdhlabf stimulating hormone measurement TSH [facility] End: 04-60-8122Exmte Metabolic Panel w/ Reflex to MGBasic Metabolic Panel w/ Reflex to MG Lab Routine Tomorrow AM for 5 Occurrences starting 10/03/2024until 10/07/2024, 3 completedHachimenroppiComascension macomb on above:Tomorrow AM for 5 Occurrences starting 10/03/2024 until 10/07/2024, 3 completedBLOOD CULTURE 1 BLOOD CULTURE 1 Lab Routine 04/28/2024 8:34 AM [facility]ITALPivot Data CenterRI JackpocketBLOOD CULTURE 2 BLOOD CULTURE 2 Lab Routine 04/28/2024 8:40 AM [facility] Jackpocket End: 33-43-7738KVY W Auto Differential panel - BloodCBC with Auto Differential Lab Routine Tomorrow AM for 5 Occurrences starting 10/03/2024 until 10/07/2024, 3 completedHachimenroppiComFINXI on above:Tomorrow AM for 5 Occurrences starting 10/03/2024 until 10/07/2024, 3 completedCulture, Urine Culture, Urine Microbiology [employer] Label Print 10/02/2024 3:43 PM EDYavapai [facility] CardbackECG 12 LeadECG 12 Lead ECG Routine Paroxysmal atrial fibrillation (Multi) 02/24/2024 2:45 PM [facility] Service Area Work Phone: Insj implntbl defib pulse gen w/1 existing ldICD SUBQ IMPLANT Cardiomyopathy, ischemic Ventricular ectopy/arrhythmia, pre-operative cardiovascular examVirtual GARY Cardiac Cath LabOxygen therapy [Minimum Data Set] Initiate Oxygen Therapy Protocol Respiratory Care Routine As Needed until discontinued starting 10/02/2024on [employer] on above:As Needed until discontinued starting 10/02/2024Patient EducationMetrohealth Main [facility] Work Phone: Patient referralMetrohealth Main Campus Medical Center [facility] Work Phone: End: 65-10-0224Dnbfwax-INRProtime-INR Lab Routine Daily for 3 Weeks starting 10/03/2024 until 10/23/2024, 3 completedBon Secours Mercy HealthComment on above:Daily for 3 Weeks starting 10/03/2024 until 10/23/2024, 3 completedRenal function 1999 panel - Serum or PlasmaMercy Health Springfield Regional Medical CenterRenal function 1999 panel - Serum or [facility] HospitalRenal function 1999 panel - Serum or [facility] HospitalRenal function 1999 panel - Serum or [facility] HospitalRenal function 1999 panel - Serum or [facility] Hospitalpirometry panelIncentive spirometry Respiratory Care Routine Every 2hr while awake until discontinued starting 10/02/2024on Secours NavigatorMD [facility] HospitalComment on above:Every 2hr while awake until discontinued starting 10/02/2024URINE CULTURE - FRMCUR[facility] [place] Routine 09/28/2024 6:08 PM EDTMetropolitan Saint Louis Psychiatric CenterURINE CULTURE - FRURINE CULTURE - FR Lab Routine 10/01/2024 3:40 PM EDTMetropolitan Saint [facility] Psychiatric Center End: 41-69-4352DB Heart TransthoracicLOVELACE MED[facility] Service Area Work Phone: Comment on above:Once for 1 Occurrences starting 08/06/2024 until 08/06/2024US Thoracic and abdominal aortaMercy Health Springfield Regional Medical CenterXR Chest 2 ViewsRiver Woods [facility] [place] Immunizations Immunization DateImmunizationNotesCare UjrfmscaFzmtvtpf52-04-3211ZSZ, recombinant, protein subunit RSVpreF, adjuvant reconstitu, 120mcg/0.5mL, PF (Arexvy)Stanley Emerson MD Work Phone: [facility] CenterUbmzzlxvzq76-61-6456yiiuzbjbj virus vaccine, unspecified formulationPatrick SAMUELS [facility] [place] [address]990-25-2024influenza, seasonal, injectableGeneric ProviderMetropolitan Saint Louis Psychiatric Center 85-35-6064Dgigaf Purple Cap SARS-CoV-2 VaccinationGeneric ProviderMetropolitan Saint Louis Psychiatric CenterMdxilqmprb79-20-4122Llbsjnaingqa Conjugate PCV 20Edludy Emerson MD Work Phone: [facility] CenterSeyjnqvgxe96-15-9776Eqvmrlapc, Seasonal, Quadrivalent, AdjuvantedTeo Al MD Work Phone: [facility] Work Phone: [phone] virus vaccine, unspecified formulationTeo Al MD Work Phone: [facility]09-24-2023SARS-COV-2 (COVID-19) vaccine, mRNA, spike protein, LNP, PF, valente-sucrose, 30 mcg/0.3 mLStanley Emerson MD Work Phone: [facility] CenterEbniksmljn18-82-7037caapyskqk, high dose seasonal, preservative-freeTeo Al MD Work Phone: [facility] Work Phone: [phone] Bivalent Booster VaccinationStanley Emerson MD Work Phone: [facility] CenterVweoadvard91-68-2942Ikveum COVID-19 Vac Bivalent 30 MCG/0.3ML Intramuscular SuspensionStanley Emerson Work Phone: [facility] Levboclj12-24-9371vnnaaekcp virus vaccine, unspecified formulationPasaint elizabeth hebronzahida SAMUELS [facility] Hospitaly10-22-2022influenza, seasonal, injectableEdludy Emerson Work Phone: [phone]-EgxzbM Health [facility] 250 DO Work Phone: [phone] High-Dose Quadrivalent 0.7 ML Intramuscular Suspension Prefilled SyringeEdludy Emerson Work Phone: [phone]-NeafyM Health [facility] 250 DO Work Phone: [phone] virus vaccine, unspecified formulationJEERICA OMALLEY [facility]05-11-2022Comirnaty 30 MCG/0.3ML Intramuscular SuspensionEdludy Emerson Work Phone: [phone]-KpbfyTyler Hospital 250 DO Work Phone: [phone]-16 Cristal Mckeon (Pfizer)MD Stanley Emerson Work Phone: [facility]05-11-2022SARS-CoV-2 mRNA (uthmpjiijhp-nybf-yunybvc) vaccineJENNJASON OMALLEY [facility]05-11-2022SARS-CoV-2, UnspecifiedStanley Emerson MD Work Phone: [facility] CenterWkxfsnpawf49-04-4400lrcrbcrrzppt polysaccharide vaccine, 23 valentEdludy Emerson Work Phone: [facility]09-30-2021influenza virus vaccine, unspecified formulationPaState Reform School for Boys [facility]09-30-2021influenza, injectable, quadrivalent, preservative freeStanley Emerson Work Phone: [phone]-PjdlxTyler Hospital 250 DO Work Phone: [phone]-LqaHWydc COVID-19 Vacc 30 MCG/0.3ML Intramuscular SuspensionStanley Emerson Work Phone: [facility] - CantonComment on above:Result Comment: 2022-06-10: HSV8560-05-6659akfusgtdg, high dose seasonal, preservative-freeTeo Al MD Work Phone: [facility] Work Phone: [phone]-OuoGYoxm COVID-19 Vacc 30 MCG/0.3ML Intramuscular SuspensionEdludy Emerson Work Phone: [facility]02-12-2021Pfizer-BioNTech COVID-19 Vacc 30 MCG/0.3ML Intramuscular SuspensionStanley Emerson Work Phone: [facility]09-29-2020influenza virus vaccine, unspecified formulationHEATHER OMALLEY [facility]09-29-2020influenza, injectable, quadrivalent, preservative freeEdludy Emerson MD Work Phone: [facility] CenterPpxksbgpaf21-25-8466Wgsksjxg, quadrivalent, recombinant, injectable influenza vaccine, preservative freeStanley Emerson Work Phone: [phone]-[facility]vmhnB[facility] 250 DO Work Phone: Payers DatePayer CategoryPayerPolicy [id number]-[id number] 2016Medicare supplemental policy (as second payer)[facility] MEDICARE SUPPLEMENT [place] [id number] Health [id number] 2011Medicare [id number] [id number] Health [id number] 2.16840.1.885370.3.579.[id number] 2.840.1.481209.3.579.2.04539-10-8278Hsudrpi5625559 2.840.1.680601.3.57[id number] 2.840.1.127838.3.579.2.76580-17-5982Rahlvhn8400728 2.840.1.401111.3.57[id number] 2.840.1.278225.3.579.2.63238-31-0878Oiuhxlu7637206 2.840.1.511702.3.579.2.26045-98-2376Tboaspd3944193 2.840.1.119594.3.579.2.77179-06-1437Tvhokbk433255657 2.840.1.765595.3.579.2.78618-95-7333Xpdflfq607243110 2.840.1.052071.3.579.2.97335-07-0516Gkajjza292150404 2.840.1.536440.3.579.2.23105-05-7325Frulwxh714772656 2.840.1.859600.3.579.2.72801-49-0890Dujwpuk370979832 2.840.1.847838.3.579.2.97572-49-2754Dmuvzeh650310126 2.16840.1.924619.3.579.2.12239-43-8653Wycowsl102502305 2.16840.1.189366.3.579.2.17550-76-6443Oglusam953973271 2.16840.1.026299.3.579.2.03227-89-6574Hiyytnh95616175 2.840.1.112455.3.579.2.68278-05-5535Vdhvdqo97297452 2.0.1.546858.3.579.2.62321-76-3222Wxoxoqv54555308 2..1.338330.3.579.2.03462-06-6721Ijlayxt27708093 2.0.1.126285.3.579.2.87882-92-8120Qpxaktl40439120 2..1.851972.3.579.2.15116-58-1948Zacaubp40418053 2.840.1.580711.3.579.2.35524-45-6734Blhbcpr21284217 2.0.1.497861.3.579.2.81691-18-3464Ridgqfh09864532 2.0.1.922166.3.579.2.84303-48-0631Xbauyzj28605581 2.0.1.067214.3.579.2.53758-53-4905Zhtcfmg11040027 2.840.1.512102.3.579.2.67248-91-2702Zphkyrg73563392 2.840.1.052767.3.579.2.07524-99-8102Nhszvpv39241158 2.840.1.126172.3.579.2.73730-73-3380Yrxhlxs57277582 2.16840.1.797641.3.579.2.65588-40-8173Kysuwke02867356 2.840.1.830418.3.579.2.75321-96-8945Wusnclh29570022 2.840.1.914183.3.579.2.02457-65-8378Mktfjuz70648756 2..1.643587.3.579.2.00875-48-4569Fcgwxrl90201838 2.0.1.058034.3.579.2.834695-70-3921Raxkwra29327641 2.0.1.186946.3.579.2.661779-05-7797Jhulewa954562026 2.0.1.670591.3.579.2.762489-64-7168Asgzxra528170219 2.840.1.946259.3.579.2.645703-04-4755Irgkojx339186565 2.0.1.786369.3.579.2.702264-69-7753Trmspvt009128265 2.0.1.358930.3.579.2.170624-86-7916Empjgbn727879138 2.0.1.636958.3.579.2.956434-73-6960Iqmekgr14127447 2.840.1.272091.3.579.2.933758-12-4599Eitzvgo66020711 2.840.1.557737.3.579.2.067470-70-6668Izvmuax2082373 2.0.1.954838.3.579.2.644814-57-4063Vppuncv5088136 2..1.675627.3.579.2.275516-53-7701Whmbhsj5545728 2..1.791715.3.579.2.196630-25-4568Dzktgwr2533244 2..1.812776.3.579.2.855932-63-7996Qbcfngr9153228 2..1.730857.3.579.2.275136-55-7249Pjiaget7453074 2..1.259790.3.579.2.216285-48-3962Aolheol3601478 2..1.156734.3.579.2.541786-19-4881Kfhsflk1032561 2..1.241838.3.579.2.805189-21-1303Pwmaywl46113949 2..1.811599.3.579.2.43228-04-3595Dowtvze85954838 2..1.889088.3.579.2.82215-94-9725Mfybozx00941385 2..1.763436.3.579.2.30831-23-5658Ofcigrl89947395 2..1.612242.3.579.2.41752-48-4842Ndhyqkq08044870 2.0.1.297922.3.579.2.02871-16-7133Bawufyp49513178 2.0.1.754939.3.579.2.87372-25-7341Mdircrw38293595 2.0.1.793459.3.579.2.62894-31-6956Xoxeafh53467005 2.0.1.124685.3.579.2.68878-70-6075Mydzuoe20821777 2..1.256149.3.579.2.83269-03-6630Nppjjpp49773086 2..1.496528.3.579.2.727MedicareMedicare [id number]-[id number]-rmc62m3[id number] 549l4120-y9jx-8590-a17x-9898839qm00tVwzyuou36870782 2..1.186466.3.579.2.217Vndaxwr85928298 2..1.417808.3.579.2.531 Xooqrhk21616202 2..1.088633.3.579.2.053Voykyha44498246 2..1.464644.3.579.2.643Ztrpqcv38683850 2..1.803144.3.579.2.531 Wldficq98504582 2..1.170513.3.579.2.611Pximyaw83533214 2..1.395489.3.579.2.557Jcsnjng87912663 2..1.300045.3.579.2.531 Xzmifra40150893 2.0.1.200110.3.579.2.882Uwhhuam47928892 2..1.241472.3.579.2.531 Social History DateTypeDetailFacilityStart: 12-31-2023 End: 67-90-0633Mxlvr caffeine consumptionDaily caffeine consumption-[facility] 250 DO Work Phone: Comment on above:3-4 cups coffee daily;05/17/23 quit; 1/2 dozen cigarettes;Start: 06-11-2022 End: 33-18-4978Wtntcwa smoking statusHeavy tobacco smoker (finding)[facility] 12[facility]2023 End: 65-44-8351Ytu [facility] 12-31-1965 End: 92-73-3391Gqaiuyn smoking status NHISSmoker (finding)[facility]: 32-76-9832Xhp [facility] 07-02-2022 End: 68-73-4494Xszqkuv smoking status NHISEx-smoker (finding)[facility] CenterTobacco smoking statusNeverExecutive [facility]rology of [facility] SanduskyStart: 80-78-1489Xggnwfi of tobacco useCigarette Smoker [facility] Work Phone: Start: 01-29-2024 End: 08-90-4583Unkxkbm use and exposureSmokeless tobacco non-userUnKettering Memorial Hospital Work Phone: Start: 02-24-2024 End: 91-19-6764Mfxweccrb beverage intakeLifetime non-drinker (finding)[facility] Work Phone: Start: 80-59-6744Bde assigned at birthNot on file [facility] Work Phone: Start: 01-31-2024 End: 73-11-1158Nfzzghkr to SARS-CoV-2 (event)Not sureUnKettering Memorial HospitalWithin the last year, have you been afraid of your partner or ex-partner?NoNOMS HealthcareAre you now , , , , never or living with a partner?MarriedNOMS HealthcareHow often to you have a drink containing alcohol?NeverNOMS HealthcareDo you feel stress - tense, restless, nervous, or anxious, or unable to sleep at night because yourmind is troubled all the time - these days [OSQ]To some extentNORI Healthcare(I/We) worried whether (my/our) food would run out before (I/we) got money to buy more. Never trueNORI HealthcareStart: 12-22-2009 End: 11-01-5658TfhEyvx (finding)[facility] CenterHow often do you need to have someone help you when you read instructions, pamphlets, or other written material from your doctor or pharmacy [SILS]AlwaysNORI Healthcare Sexual OrientationExecutive Urology of St[facility] Do you feel stress - tense, restless, nervous, or anxious, or unable to sleep at night because yourmind is troubled all the time - these days [OSQ]Only a littleNONevada Regional Medical Center Medical Equipment Procedure CodeEquipment CodeEquipment Original TextEquipment IdentifierDates Percutaneous endovascular repair of abdominal aortic aneurysm (AAA)Abdominal aorta endovascular stent-graft()[id number] FDA Start: 66-79-2286Ynqwyxclrxlj endovascular repair of abdominal aortic aneurysm (AAA)Abdominal aorta endovascular stent-graft ()[id number] FDAStart: 88-23-5655Qgzzrsdtjvie endovascular repair of abdominal aortic aneurysm (AAA)Abdominal aorta endovascular stent-graft()[id number] FDAStart: 67-65-7207Zzsfnezatkpl endovascular repair of abdominal aortic aneurysm (AAA) Soft-tissue/mesh anchor, non-bioabsorbable ()[id number] FDAStart: 74-12-1259IT STENT JERZY FRONTIER 3.0 X 38FDAStart: 56-33-4946DK STENT JERZY FRONTIER 3.0 X 38FDAStart: 03-40-9260BG STENT JERZY FRONTIER 3.0 X 38FDAStart: 78-30-7855LZ STENT JERZY FRONTIER 3.0 X 38FDAStart: 48-85-4266KM STENT JERZY FRONTIER 3.0 X 38FDAStart: 93-54-2451BM STENT JERZY FRONTIER 3.0 X 38FDAStart: 32-45-3871RQ STENT JERZY FRONTIER 3.0 X 38FDAStart: 12-48-4375QX STENT JERZY FRONTIER 3.0 X 38FDAStart: 84-13-9356CW STENT JERZY FRONTIER 3.0 X 38FDAStart: 37-92-0384PG STENT JERZY FRONTIER 3.0 X 38FDAStart: 06-00-0544Kxyogmrh peripheral artery stent, bare-metal()[id number] FDAStart: 23-58-2139Tmpagkux peripheral artery stent, bare-metal()[id number] FDA Start: 64-34-3980QL STENT JERZY FRONTIER 3.0 X 38FDAStart: 01-16-2024 Goals DatePatient GoalDesired Activity/State Functional Status PdgrGwgvpqigsoVyhwuyVdjnnqxm08-99-2104Kjzqyvdxfz StatusN/AExec[facility] of [facility]11-12-2024Functional StatusN/AExec[facility] of [facility]08-30-2024Functional status Patient at [facility] Work Phone: 1(530) 332-555705850347-87-7192Tyirtchkvh StatusN/AExec[facility] of [facility]02-05-2024Functional StatusN/A[facility]01-16-2024Functional StatusN/A [facility]10-17-2023Functional StatusN/A[facility]07-18-2023Functional StatusN/A[facility] of [facility]04-26-2023Functional StatusN/A [facility]03-08-2023Functional StatusN/A[facility] of [facility]02-08-2023 Functional statusPatient at [facility] Work Phone: 1(401) 694-55430803462-04-0843Tnxlhvyayy StatusN/AExec[facility] of [facility] Dixwqlme58-11-6317Zvnbxvanmv statusPatient Not at [facility] Work Phone: Mental Status KbjiEviauvwdkjVkwqcbBhvwcxyz52-74-5669Vdbnvudel functionCognitive Status Patient is Progressing Toward [facility] Work Phone: [phone]) [phone]pntiiapf functionCognitive Status Patient at [facility] Work Phone: [phone]) 512-504812039620-46-3629Spzvtmyts functionCognitive Status Patient at [facility] Work Phone: Clinical Notes 06-04-2022 to 11-16-2024 Note Date & OhvwPvscCgajhedd18-98-5183 Hospital Discharge instructions Patient Education 11/16/2024 14:35:51 [...] provider. Document Revised: 08/01/2021 Document Reviewed: 04/27/2021 [employer] Patient Education 2021 [employer]. 11/16/2024 14:35:49 Cancer Screening for Males Cancer [...] if anything looks unusual. Males with a rxobtd-qlpy-qfbbpb risk for skin cancer may want to see a skin toggler (retread mold operator) for an annual body check. Where to find more information [employer] [employer]: cancer.org Centers for Disease Control and Prevention: cdc.gov National Cancer [place]: cancer.gov Contact a health care provider if: [...] provider. Document Revised: 05/20/2023 Document Reviewed: 12/02/2022 [employer] Patient Education 2023 [employer]. Follow Up Care 10/26/2024 10:10:17 With:ARLENE CASILLAS, Katia Hall, URL Address: [facility] [address] , [place] [address]- When: Unknown [facility] 06-24-2025 NotePatient Education Oncology Cancer Screening for Males [...] if anything looks unusual. Males with a scnfgp-qxya-mtqyjh risk for skin cancer may want to see a skin toggler (dermatologi (more content not included)...[facility]06-17-2025 History of Present illness Narrative* Stanley Emerson MD - 11/09/2024 2:00 PM EDT Images from the original note [...] call the police. He had a rx ofseraquil from [facility] and she put him back on that. [...] volume in a decrease in the pitch ofmy voice he can hear me. It is [...] exacerbation. We discussed and she has a ucsf-kkn-cnvxkcz hydrocortisone cream at home. For now I [...] Alzheimer's dementia without behavioral disturbance, psychotic disturbance, mooddisturbance, or anxiety (HCC) Chronic problem that does seem to be worsening. Her psychiatrist is managing the medications for the mood. She asked me a couple of questions and I gave her my opinion but deferred any changes to herpsychiatrist. After discussing we have mutually agreed to [...] by mouth at bedtime documented in this encounterMetropolitan Saint Louis Psychiatric CenterEirvgirbeb04-72-1763 History of Present illness Narrative* Stanley Emerson MD - 10/14/2024 2:30 PM EDT Images from the original note were not included. Patient ID: Alex Anderson is a 78 y.o. male who presents for: Flowsheet Row Patient Outreach from 10/06/2024 in [facility] with Joi Zhang LPN Hospital Information ED, Hospital or Retirement Facility Discharge? Hospital Patient has been contacted within two business days of discharge Yes Diagnosis Community acquired pneumonia of lower lobe of lung , Lower extremity edema Edema, Delirium due to another medical condition Discharge Date 10/05/24 Discharged To: Home Setting Discharge Hospital [facility] Engagement Call Start Time 1207 Admission [...] have any upcoming specialty appointments? 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 yes What is the home health agency? [facility] Has home health visited the patient [...] in ER and Hospital. Pt arrived to [facility] ER d/t [facility] crisis line stating to go because of pts increased delusions, hallucinations, and suicidal ideation. found pocket knife on pt as well. Pt transferred to [facility]. Pt positive for metapneumovirus, Urine cultures came [...] transition of care note is reviewed. a gcrr-bd-gibf evaluation is done today. Medical decision making is complex in degree. 3. Lower extremity edema Chronic problem, stable, we will monitor at this time. 4. Delirium due to another medical condition Chronic problem that is currently stable and manageable. It was worse when he was acutely ill. No further adjustments. documented in this [facility]05-21-2025 History of Present illness Narrative* Stanley Emerson MD - 10/13/2024 8:31 AM EDT Reviewed the procedure note. Updated the medical record. documented in this [facility]05-16-2025 History of Present illness Narrative* Ruby Montana MD - 10/08/2024 3:00 PM EDT Patient ID: Alex Anderson is a 78 [...] knee is scheduled for stent placement on M onday. He has chronic kidney disease, stage 3B, which may impact cardiovascular treatment options. He is currently on Bactrim for an infection, though the presence of an active infection is unclear. He reports no pain and improved breathing but feels unsteady on his feet. He is being evaluated for dementia, which has worsened due to recent infections. He is on an Exelonpatch and Seroquel, which have helped manage his [...] future interventions. Family holds healthcare power of collections attorney. DNR status temporarily revoked during procedure. [...] I discussed arrhythmia, ECG, shared decision making, Spink decision tool, informed consent, treatment options, risk, [...] index (BMI) 25.0-25.9, adult Pre-operative cardiovascular examination I, SY DICKINSON LPN, AM SCRIBING FOR AND IN THE PRESENCE OF DR. RUBY MONTANA MD, FACC, FACP,[facility] I, , personally performed the services described in the documentation as scribed by the nurse in my presence, and confirm it is both accurate and complete. This medical note was created with the assistance of artificial intelligence (AI) for documentationpurposes. The content has been reviewed and confirmed by the healthcare provider for accuracy and completeness. Patient consented to the use of audio recording and use of AI during their visit. Total, 94, inclusive of review of cardiology notes, and echocardiogram, DNR and POA forms, shared decision making, Spink decision tool, and informed consent [1] Social History Socioeconomic History Marital status: Tobacco Use Smoking status: Former Types: Cigarettes Smokeless tobacco: Never Substance and Sexual Activity Alcohol use: Never Drug use: Never Social Drivers of Health Financial Resource Strain: Low Risk (12/31/2023) Received from [facility] Overall Financial Resource Strain (CARDIA) Difficulty of Paying Living Expenses: Not hard at all Food Insecurity: Patient Unable To Answer (10/02/2024) [facility] Hunger Vital Sign Worried About Running Out of Food in the Last Year: Patient unable to answer Ran Out of Food in the Last Year: Patient unable to answer Transportation Needs: Patient Unable To Answer (10/02/2024) Received from [facility] PRAPARE - Transportation Lack of Transportation (Medical): Patient unable to answer Lack of Transportation (Non-Medical): Patient unable to answer Physical Activity: Inactive (12/31/2023) Received from [facility] Exercise Vital Sign Days of Exercise per Week: 0 days Minutes of Exercise per Session: 0 min Stress: Stress Concern Present (12/31/2023) [facility] [place] [facility] - Occupational Stress Questionnaire Feeling of Stress : To some extent Social Connections: Moderately Isolated (12/31/2023) Received from [facility] Social Connection and Isolation Panel [NHANES] Frequency of Communication with Friends and Family: More than three times a week Frequency of Social Gatherings with Friends and Family: More than three times a week Attends Orthodoxy Services: Never Active Member of Clubs or Organizations: No Attends Club or Organization Meetings: Never Marital Status: Intimate Partner Violence: Not At Risk (12/31/2023) Received from [facility] Humiliation, Afraid, Rape, and Kick questionnaire Fear of Current or Ex-Partner: No Emotionally Abused: No Physically Abused: No Sexually Abused: No Housing Stability: Patient Unable To Answer (10/02/2024) Received from [facility] Housing Stability Vital Sign Unable to Pay for Housing in the Last Year: Patient unable to answer Homeless in the Last Year: Patient unable to answer [2] Family History Problem Relation Name Age of Onset Other (bowel obstruction) Mother Brain cancer Father documented in this [facility] Work Phone: 1(175) 920-365705-16-2025 Instructions* Patient Instructions* Sy Dickinson LPN - 10/08/2024 3:00 PM EDT Images from the original note were not included. Vascular surgery needs to tell us when he can come off Plavix, and for how long. Please call us as soon as you have this answer, , option #4. Pre-Procedure Patient Information You have been scheduled for: EV- ICD Implant At: [facility] With: Dr. Montana and Dr. Capone Date of procedure: 1. Please have transportation to and from the hospital. While you should plan for same-day discharge there is a possibility you will need to stay overnight. 2. You will receive a call from the hospital 24 - 72 hours before your procedure providing you withfasting instructions, procedure location detail, and time of arrival. If you have not received a call from the hospital by 6 pm the day before your scheduled procedure, please call [phone]. 3. Please bring a current list of [...] any questions, please contact the office at [phone]. Follow up 1 week after for a wound care check appointment documented in this [facility] Work Phone: 1(641) 842-534205-13-2025 History of Present illness Narrative* Jessy Wayne RN - 10/05/2024 1:34 PM EDT AVS reviewed with and patient. All questions answered. Leg bag attached to zapien. IV removed, no complications. Waiting for meds to bed to be delivered. * Servando Hall MD - 10/05/2024 9:46 AM EDT [facility] 10/05/2024 9:55 AM Name: Alex Anderson Acct: [id number] Room: Day: 3 Admit Date: 10/02/2024 10:30 AM PCP: Stanley Emerson MD Code Status: DNR-CCA Subjective: C/C: No chief complaint on file. Interval History Status: improved. This morning patient is ANO x 3, able to say his name, date, location, family member names. Needs some redirection but overall pleasant, reports feeling well. Denies shortness of breath, pain. Deniesseeing or hearing other voices at this time. Reports he would feel safe at home and has a family member who will be with him. Has indwelling Zapien urinating okay and BM yesterday. Patient's urine culture sensitivities are in and will be reviewed from [place]. Brief History: 78 yo male admitted to the hospital for the management of pneumonia, UTI, altered mental status. Patient has past medical history of endorses CAD with stent placement to one of the main arteries last December, A-fib on Coumadin and amiodarone, CHF last ejection fraction on echo 30-35%, CKD stage III, indwelling Zapien catheter due to enlarged prostate and retention of urine, COPD, anemia, AAA post stent, hypothyroidism. Per [facility] records patient was brought in to [place] ED by due to increasing delusions, hallucinations with suicidal ideation. Patient has been having declining mental status for thepast 6 months but worsened over the past 2 weeks. Patient's found a knife in his pocket unsurehow he obtained it. He has been reporting [...] Labs significant for no leukocytosis but BUN 26creatinine 2.01. Urinalysis positive for nitrates and moderate bacteria small leukocyte esterase. Given a fluid bolus, azithromycin and 1 dose of IV Rocephin. Drug screening positive for tricyclic antidepressant. Transferred to [facility] for psychiatric assessment and [facility] admission following medical clearance. On admit, patient is ANO x 2, knows his name date, birthday, president. Able to list some family members. Is aware he is in a hospital in [place]. He endorses increasing bilateral lower extremity weakness for past few days. When asked why he endorses this is likely due to his blood thinner medication. Asking him what his blood thinner medication is for he says for heartburn. Denies any chest pain,shortness of breath, abdominal pain, trouble with urination. Patient denies any visual or auditory hallucinations. Denies any suicidal ideation, denies any intent to harm others but does endorse thathopefully does not have any thoughts to harm others in a later statement. He does seem to have somedisorganized thought process, potentially responding to internal stimuli. [...] RODS >100,000 CFU/ML (A) 10/02/2024 03:43 PM @MLHABGPO@ Radiology: Vascular duplex lower extremity venous bilateral [...] - dementia versus delirium -Patient transferred from [facility] due to declining mental status and increasing delusionsand hallucinations. Per chart review patient's was increasingly concerned for the last 2 weekshe has had more hallucinations and delusions, concerned of people coming to find him. Recently obtained a pocket knife that she is unsure how he got. Per chart review endorsed some suicidal ideation -CT head in ED [place] 10/01 reviewed no acute intracranial abnormality -UDS 10/01 [place] positive for tricyclic's -On admit patient denies any hallucinations, suicidal ideation or homicidal ideation but appears tohave a disorganized thought process, responding inaccurately about [...] for human metapneumovirus UTI with chronic indwelling Zapien, CKD stage IIIb - History of bladder cancer, indwelling Zapien due to enlarged prostate and urinary retention, chronic smoker - CKD stage IIIb follows with nephrology - Patient denies any pain, increased frequency with urination - In ED at [place], urinalysis small leukocyte esterase moderate bacteria 10/01; BUN 26 creatinine 2.01 -> creatinine 1.9 -[place] urine culture received 10/05. Positive for Klebsiella [...] levels due to CKD status. Discontinue gentle fluidsdue to decreased ejection fraction - IV Rocephin will need to be transitioned due to sensitivities - Urology consulted, appreciate recommendations - Replace Zapien here, chart review unsure if it was replaced at [place] A-fib - Patient had some runs of [...] agree with the assessment, plan and orders asdocumented by the resident. Urine culture from [facility] growing Klebsiella and Enterobacter sensitive to Cipro. Chronic Zapien. Follow-up urology as outpatient. CT head from [place], negative. Varicose veins, vascular surgery follow-up as outpatient. Hypokalemia- replaced * Jessy Wayne RN - 10/05/2024 9:21 AM EDT Oral potassium replaced. * Aristeo Gallardo [facility] - 10/05/2024 8:07 AM EDT Pharmacy Note Warfarin Consult follow-up Recent Labs [...] tonight Daily PT/INR while inpatient. 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 Checked back at 1430, with pt working with physical therapy. PCT reported needing to get EKG once pt has completed PT. OT will continue to follow and check back as time permits. 1352; 1430 * Filemon Cerda RN - 10/04/2024 12:10 PM EDT Patient Alert and Oriented x 4, per Jessy CHAN. Bedside environmental safety specialist removed, Telesitter placedat bedside. * Jessy Wayne RN - 10/04/2024 11:45 AM EDT Chronic zapien catheter changed. 20 Fr coude. * Fili Gandaar MD - 10/04/2024 11:28 AM EDT Department of Psychiatry Consult Service Psychiatric Assessment [...] periodically make illogical statements in response to hand sign writer's assessment questions and thought process was [...] psychiatric history of dementia, but is not currentlyprescribed any neurocognitive medications. Only documented history of dementia is found on 09/20 when patient's called PCP stating that Alex has been exhibiting increased confusion and hallucinations. Patient initially presented to the ED from [facility]. He was [facility] for potential admission, but declined as his symptoms were consistent with delirium. Noted he was placed perry application for emergency admission by [place] ED secondary to patient'sbehavior at home. per documentation, he was attempting to get access to his locked gun safe as he expressed belief that he a nd his were not safe. He also had [...] house secondary to the neighbor using drugs. Hedenies any suicidal or homicidal intent, but does express that he would protect him and his ifnecessary. Alex denies feeling that his mind is [...] like him to see Dr. Mcarthur in [place]. Per review of documentation, patient medications managed [...] mEq, 40 mEq, Oral, PRN OR potassium [id number] mEq/100 mL IVPB (Peripheral Line), 10 mEq, [...] psychosocial and environmental stressors PLAN Admission [facility] is not warranted No medication changes [...] agree with assessment. The patient was seen [id number]. The patient is pleasant on approach. He [...] conducted. Follow-up daily while on inpatient unit * Servando Hall MD - 10/04/2024 9:30 AM EDT [facility] 10/04/2024 9:40 AM Name: Alex Anderson Acct: [id number] Room: Day: 2 Admit Date: 10/02/2024 10:30 [...] on echo 30-35%, CKD stage III, indwelling Zapien catheter due to enlarged prostate and retention of urine, COPD, anemia, AAA post stent, hypothyroidism. Per [facility] records patient was brought in to [place] ED by due to increasing delusions, hallucinations with suicidal ideation. Patient has been having declining mental status for thepast 6 months but worsened over the past 2 weeks. Patient's found a knife in his pocket unsurehow he obtained it. He has been reporting [...] Labs significant for no leukocytosis but BUN 26creatinine 2.01. Urinalysis positive for nitrates and moderate bacteria small leukocyte esterase. Given a fluid bolus, azithromycin and 1 dose of IV Rocephin. Drug screening positive for tricyclic antidepressant. Transferred to [facility] for psychiatric assessment and potentially [facility] admission following medical clearance. On admit, patient is ANO x 2, knows his name date, birthday, president. Able to list some family members. Is aware he is in a hospital in [place]. He endorses increasing bilateral lower extremity weakness for past few days. When asked why he endorses this is likely due to his blood thinner medication. Asking him what his blood thinner medication is for he says for heartburn. Denies any chest pain,shortness of breath, abdominal pain, trouble with urination. Patient denies any visual or auditory hallucinations. Denies any suicidal ideation, denies any intent to harm others but does endorse thathopefully does not have any thoughts to harm others in a later statement. He does seem to have somedisorganized thought process, potentially responding to internal stimuli. [...] Output 2050 ml Net -1750 ml Labs: @LABSNEHAILY3@ Lab Results Component Value Date/Time SPECIAL Site: Urine 10/02/2024 03:43 PM Lab Results Component Value Date/Time CULTURE GRAM NEGATIVE RODS >100,000 CFU/ML (A) 10/02/2024 03:43 PM @HABGPO@ Radiology: No results found. Physical Examination: Physical [...] - dementia versus delirium -Patient transferred from [facility] due to declining mental status and increasing delusionsand hallucinations. Per chart review patient's was increasingly concerned for the last 2 weekshe has had more hallucinations and delusions, concerned of people coming to find him. Recently obtained a pocket knife that she is unsure how he got. Per chart review endorsed some suicidal ideation -CT head in ED [place] 10/01 reviewed no acute intracranial abnormality -UDS 10/01 [place] positive for tricyclic's -On admit patient denies any hallucinations, suicidal ideation or homicidal ideation but appears tohave a disorganized thought process, responding inaccurately about [...] for human metapneumovirus UTI with chronic indwelling Zapien, CKD stage IIIb - History of bladder cancer, indwelling Zapien due to enlarged prostate and urinary retention, chronic smoker - CKD stage IIIb follows with nephrology - Patient denies any pain, increased frequency with urination - In ED at [place], urinalysis small leukocyte esterase moderate bacteria 10/01; BUN 26 creatinine 2.01 -> creatinine 1.9 - Repeat urinalysis leukoesterase, urine culture pending - IV Rocephin and IV fluid bolus. 1 dose given in ED 10/01 per charts - Patient likely around baseline BUN/creatinine levels due to CKD status. Discontinue gentle fluidsdue to decreased ejection fraction - Continue IV Rocephin for UTI - Urology consulted, appreciate recommendations - Replace Zapien here, chart review unsure if it was replaced at [place] A-fib - Patient had some runs of [...] agree with the assessment, plan and orders asdocumented by the resident. Change zapien GNR UTI Venous doppler pending Follow-up onc as outpatient Neuro consulted * Constantin Goodwin [facility] - 10/04/2024 9:09 AM EDT Pharmacy Note Warfarin Consult follow-up Recent Labs [...] Daily PT/INR while inpatient. Constantin Goodwin PharmD. [facility] 10/04/2024 9:09 AM * Heather Solis APRN - [employer]O[facility]AL DISORDERS COUNSELOR - 10/03/2024 5:44 PM EDT Department of Psychiatry Consult Service Psychiatric Assessment PROGRESS NOTE REASON FOR CONSULT: dementia, worsening delusions CONSULTING PHYSICIAN: Waqar Pink History obtained from: Patient, EMR, treatment team FOLLOW UP: 10/03/2024 patient was seen for follow-up assessment today. His daughter and were present at the bedside. Patient was awake and alert. He was pleasant and cooperative with assessment. He was calmand remained in behavioral control. Orientation is improving and he was able to identify self, general location, and reason for admission. He made no obvious delusional statements. Patient's reports that patient seems a little less confused today. Patient did periodically make illogical statements in response to hand sign writer's assessment questions and thought process was [...] to not meet criteria for admission to [facility] due to delirium and is not experiencing any underlying psychiatric illness. HISTORY OF PRESENT ILLNESS: The patient is a 78 y.o. male with a reported psychiatric history of dementia, but is not currentlyprescribed any neurocognitive medications. Only documented history of dementia is found on 09/20 when patient's called PCP stating that Alex has been exhibiting increased confusion and hallucinations. Patient initially presented to the ED from [facility]. He was presented to [facility] for potential admission, but declined as his symptoms were consistent with delirium. Noted he was placed perry application for emergency admission by [place] ED secondary to patient'sbehavior at home. per documentation, he was attempting to get access to his locked gun safe as he expressed belief that he a nd his were not safe. He also had [...] house secondary to the neighbor using drugs. Hedenies any suicidal or homicidal intent, but does express that he would protect him and his ifnecessary. Alex denies feeling that his mind is [...] like him to see Dr. Mcarthur in [place]. Per review of documentation, patient medications managed [...] mEq, 40 mEq, Oral, PRN OR potassium [id number] mEq/100 mL IVPB (Peripheral Line), 10 mEq, [...] psychosocial and environmental stressors PLAN Admission [facility] not warranted No medication changes [...] which are inherent in voice recognition technology. * Kaleb Marrero, PT - 10/03/2024 3:16 PM EDT Physical Therapy [facility] Physical Therapy Evaluation Date: 10/03/24 Patient Name: Alex Anderson Room: Account: [id number] : 1945 (78 y.o.) Gender: male Discharge [...] of pneumonia, UTI, altered mental status. Per [facility] records patient was brought in to [place] ED by due to increasing delusions, hallucinations with suicidal ideation. Patient has been having decliningmental status for the past 6 months but [...] screening positive for tricyclic antidepressant. Transferred to [facility] for psychiatric assessment and potentially [facility] admission following medical clearance. Referral Date : 10/02/24 Diagnosis: Pneumonia Follows Commands: Impaired Pain Pre-Pain: (Pt does not report any pain) Social/Functional History Social/Functional History Lives With: Spouse Additional Comments: Pt unable to provide any usefull information regardinf prior level of functionand home set up-Dementia / Early Alzheimer's. No [...] ex' at EOB with visual demonstration during eachrepetetion. Observation/Palpation Posture: Fair Observation: Zapien cathetor. Vitals Vitals O2 Device: None (Room air) BP Location: Left upper arm Orientation Overall Orientation Status: Impaired Orientation Level: Disoriented to situation, Disoriented to time, Disoriented to place, Disorientedto person (Knew he lives with his ) [...] on the side of a flat bed withoutusing bedrails?: A Little How much help is needed moving to and from a bed to a chair?: A Little How much help is needed standing up from a chair using your arms?: A Little How much help is needed walking in hospital room?: A Little How much help is needed climbing 3-5 steps with a railing?: Total AM-[facility] Inpatient Mobility Raw Score : 16 AM-PAC [...] Call light within reach, Gait belt, Patient atrisk for falls, Left in bed, Telesitter in use PT Individual Minutes Time In: 1042 Time Out: 1104 Minutes: 22 Time Code Minutes Timed Code Treatment Minutes: 15 Minutes * Cesar Melendez - 10/03/2024 2:03 PM EDT New consult to Neurology. Advertising Account Representative notifed Moris Barragan MD. * Mar Gonzalez RN - 10/03/2024 9:03 AM EDT Patient potassium is low. Potassium oral 40mEq was given per PRN orders * Servando Hall MD - 10/03/2024 8:50 AM EDT [facility] PROGRESS NOTE 10/03/2024 9:59 AM Name: Alex Anderson Acct: [id number] Room: Day: 1 Admit Date: 10/02/2024 10:30 AM PCP: Stanley Emerson MD Code Status: Full Code Subjective: C/C: No chief complaint on file. Interval History Status: improved. This morning patient is ANO x 2. Needs some redirection but overall pleasant, reports feeling well.Denies chest pain, trouble breathing, weakness. Reports feeling [...] on echo 30-35%, CKD stage III, indwelling Zapien catheter due to enlarged prostate and retention of urine, COPD, anemia, AAA post stent, hypothyroidism. Per [facility] records patient was brought in to [place] ED by due to increasing delusions, hallucinations with suicidal ideation. Patient has been having declining mental status for thepast 6 months but worsened over the past 2 weeks. Patient's found a knife in his pocket unsurehow he obtained it. He has been reporting [...] Labs significant for no leukocytosis but BUN 26creatinine 2.01. Urinalysis positive for nitrates and moderate bacteria small leukocyte esterase. Given a fluid bolus, azithromycin and 1 dose of IV Rocephin. Drug screening positive for tricyclic antidepressant. Transferred to [facility] for psychiatric assessment and potentially [facility] following medical clearance. On admit, patient is ANO x 2, knows his name date, birthday, president. Able to list some family members. Is aware he is in a hospital in [place]. He endorses increasing bilateral lower extremity weakness for past few days. When asked why he endorses this is likely due to his blood thinner medication. Asking him what his blood thinner medication is for he says for heartburn. Denies any chest pain,shortness of breath, abdominal pain, trouble with urination. Patient denies any visual or auditory hallucinations. Denies any suicidal ideation, denies any intent to harm others but does endorse thathopefully does not have any thoughts to harm others in a later statement. He does seem to have somedisorganized thought process, potentially responding to internal stimuli. [...] for: SPECIAL No results found for: CULTURE @MLBGPOC@ Radiology: No results found. Physical Examination: Physical [...] - dementia versus delirium -Patient transferred from [facility] due to declining mental status and increasing delusionsand hallucinations. Per chart review patient's was increasingly concerned for the last 2 weekshe has had more hallucinations and delusions, concerned of people coming to find him. Recently obtained a pocket knife that she is unsure how he got. Per chart review endorsed some suicidal ideation -CT head in ED [place] 10/01 reviewed no acute intracranial abnormality -UDS 10/01 [place] positive for tricyclic's -On admit patient denies any hallucinations, suicidal ideation or homicidal ideation but appears tohave a disorganized thought process, responding inaccurately about [...] for human metapneumovirus UTI with chronic indwelling Zapien, CKD stage IIIb - History of bladder cancer, indwelling Zapien due to enlarged prostate and urinary retention, chronic smoker - CKD stage IIIb follows with nephrology - Patient denies any pain, increased frequency with urination - In ED at [place], urinalysis small leukocyte esterase moderate bacteria 10/01; BUN 26 creatinine 2.01 - Repeat urinalysis leukoesterase, urine culture pending - IV Rocephin and IV fluid bolus. 1 dose given in ED 10/01 per charts - Patient likely around baseline BUN/creatinine levels due to CKD status. Discontinue gentle fluidsdue to decreased ejection fraction - Urology consulted, [...] agree with the assessment, plan and orders asdocumented by the resident. Neuro consult, dementia? Anemia workup Fobt Venous doppler pending * Cesar Melendez - 10/03/2024 8:06 AM EDT New consult for Palliative Care. Advertising Account Representative notified Heather Romo NP. * Aidee Kearns RPH - 10/03/2024 7:00 AM EDT Pharmacy Note Warfarin Consult follow-up Recent Labs 10/02/24 1139 10/03/24 0623 INR 1.9 1.7 Recent Labs 10/02/24 1139 10/03/24 0623 HGB 11.0* 9.9* HCT 38.8* 33.1* PLT 245 165 Significant Drug-Drug Interactions: New warfarin drug-drug interactions: seroquel Discontinued drug-drug interactions: none Current warfarin drug-drug interactions: azithromycin, rocpehin, plavix, methimazole, atorvastatin,amiodarone, acetaminophen Date INR Dose given previous day Dose scheduled for today 10/03/2024 1.7 2 mg 4 mg Notes: INR subtherapeutic today at 1.7 (goal 2-3). Will schedule booster dose of warfarin 4 mg tonight. Daily PT/INR while inpatient. Aidee Kearns PharmD, [facility] * Gi Berrios RN - 10/02/2024 9:00 PM EDT RN attempted to finish patients admission questions, patient was unable to answer. * Tamy Palacios RN - 10/02/2024 6:03 PM EDT Advertising Account Representative notified Palliative care of new consult placed. * Aidee Kearns RPH - 10/02/2024 12:11 PM EDT Pharmacy Note Warfarin Consult Alex Anderson is [...] warfarin drug-drug interactions: azithromycin, rocephin, plavix, methimazole, atorvastatin,amiodarone, acetaminophen Date INR Dose 10/02/2024 1.9 2 mg Additional notes: INR slightly subtherapeutic today at 1.9 (goal 2-3). Patient follows with [facility]. Patient's first time at [facility], sparse documentation in [facility]. Documentation from transferring hospital states patient is on coumadin 2 mg daily. Will schedule coumadin 2 mg tonight, has not received medications since last night. Daily PT/INR while inpatient. Thank you for the consult. Will continue to follow. Aidee Kearns PharmD, RPH * Cesar Melendez - 10/02/2024 11:43 AM EDT New consult to Urology. Advertising Account Representative notified Goldy Garland MD. * Cesar Melendez - 10/02/2024 11:41 AM EDT New consult to Psychiatry. Advertising Account Representative notified Froy Razo MD. documented in this encounterBon [facility] Discharge instructions* Discharge Instructions* Waqar Pink MD - 10/05/2024 11:40 AM [...] (CD rom and photo on phone) from [facility] with you but it is also uploaded in media in your chart at [facility] - Follow-up with your vascular surgeon [...] please seek urgent medical attention Thank you * Discharge Instr - BRANDT* Erika Chisholm RN - 10/04/2024 9:42 AM EDT Continuity of Care Form Patient Name: Alex Anderson : 1945 Admit date: 10/02/2024 Discharge date: 10/05/2024 Code Status Order: Full Code Advance Directives: Admitting Physician: Servando Hall MD PCP: Stanley Emerson MD Discharging Nurse: Jessy CHAN Discharging Hospital Unit/Room#: - Discharging Unit Emergency Contact: Extended Emergency Contact Information Primary Emergency Contact: Estella Anderson Relation: Spouse Retail Merchandiser Technician needed? No Secondary Emergency Contact: Antonio Anderson [...] Assisted Dressing Assisted Toileting Assisted Feeding Independent Rn Travel Assisted Med Delivery whole Wound Care Documentation and Therapy: Elimination: Continence: Bowel: Yes Bladder: zapien cath Urinary Catheter: Insertion Date: 10/04 Colostomy/Ileostomy/Ileal [...] cane, walker, and bath bench Other Treatments: Retirement assessment and monitoring. Medication education and monitoring per protocol. Patient's personal belongings (please select all that are sent with patient): Cheko RN SIGNATURE: CASE MANAGEMENT/SOCIAL WORK SECTION Inpatient Status Date: 10/02/2024 Readmission Risk Assessment Score: [facility] RISK OF UNPLANNED READMISSION 2.0 13.1 Total Score Discharging to Facility/ [facility] Address: [address] [place] [address] Dialysis Facility (if applicable) Name: Address: Dialysis Schedule: Phone: Fax: Adolescent Medicine Specialist/Fish House Worker signature: PHYSICIAN SECTION Prognosis: Fair Condition at [...] in H&P PHYSICIAN SIGNATURE: documented in this encounterBon [facility]field [facility]04-[facility] History of Present illness Narrative* Stanley Emerson MD - 09/21/2024 2:15 PM EDT Images from the original note were not included. Patient ID: Alex Anderson is a 78 y.o. male who presents for: Pt reported to his [facility] Nurse yesterday that pt has been having issues with increased hallucinations and cognitive impairment. Results were looked up in [facility] and there are no recent UA's done from urology. Pt does have an indwelling catheter and on prophylactic Keflex. Pt states thatshe does not think these issues are from a urinary tract infection. She states that his symptoms donot match what he has done when this [...] Final Bilirubin, UA 09/21/2024 Negative Negative - (70) +++ mg/dL Final Ketones, UA 09/21/2024 Positive [...] Alzheimer's dementia without behavioral disturbance, psychotic disturbance, mooddisturbance, or anxiety (CMS/HCC) Chronic problem that is slowly progressing per the . Even the patient notices this but notes that everybody at his age forgets. He does appear to be getting his days and nights mixed up and having some symptomatology. Discussing further mostly with his she is agreeable to a trial of an atypical antipsychotic atlow-dose. This should help with the sleep and should help to minimize the hallucinations. We discussed how this is relatively contraindicated in patients with Alzheimer's. These medications have beennoted to potentially shortened their life span. 2. [...] which could be worsening his dementia. While heis in ketosis, he does not appear to [...] least amoderate degree of evaluation and management. 7. Overweight Continue a gentle exercise program. documented in this encounterMetropolitan Saint Louis Psychiatric [id number] History of Present illness Narrative* Teo Al MD - 09/10/2024 10:00 AM EDT Chief Complaint Patient presents with Follow-up 1 month follow up abnormal testing Subjective Alex Anderson is a 78 y.o. male HPI Patient is in the office for follow-up at of scheduled to discuss AICD implantation due to persistently reduced ejection fraction with most recent echocardiogram on 08/06/2024 showing ejection fraction of 30-35% due to ischemic cardiomyopathy. He is not on maximal therapy for heart failure due to sig nificant hypotension. He is still compensated. He had [...] Arrangements are going to be made at [facility]. He will be communicated to through the office in the area for the arrangements to be made. His present medical therapy was left unchanged. Assessment/recommendations: 1-history of non-ST elevation myocardial infarction leading to LAD stenting December 2023 at [facility], continue Plavix, high intensity statin, patient [...] is recommended and will be arranged at [facility]. 5- status post AAA stenting with EVAR 2022 with no complications. 6- chronic kidney disease stage IIIb. Patient's follows with nephrology, basic metabolic profile isordered 7-hyperlipidemia on maximal dose atorvastatin 8- history of TIA, no recurrences 9- slight overweight, encouragement provided for prudent diet and daily activities 10-colon polyp large enough to require surgery, he is refusing follow-up at the [facility] 11- history of bladder cancer followed by [...] tablet daily in the evening. Follow with [facility] coumadin[facility]. Patient will take coumadin and eliquis together for 3 days only Assessment/Plan 1. Cardiomyopathy, ischemic Referral to Cardiac Electrophysiology Basic Metabolic Panel Basic Metabolic Panel 2. 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Basic Metabolic Panel Basic Metabolic Panel 3. S/P [...] Attestation By signing my name below, I, Ruth Urban LPN , Isidoro attest that this documentation has been prepared [...] exam, discussion and plan. [facility] Phone: 1(832) 297-395304-18-2025 Instructions* Patient Instructions* Ruth Mojica LPN - 09/10/2024 10:00 AM [...] 03/29 visit as scheduled. [facility] Work Phone: 1(150) 226-790903-20-2025 Telephone encounter Note* Telephone Encounter - Stanley Emerson MD - 08/12/2024 2:19 PM EDT Entered in error [id number] Miscellaneous Notes* Telephone Encounter - Stanley Emerson MD - 08/12/2024 2:19 PM EDT Entered in error documented in this encounterMetropolitan [facility] [id number] Evaluation note* Diagnosis Onset Date Resolution Status Admit Date Abdominal aortic aneurysm without ruptur e acuteMarch 2024 10:25amAnemiaacuteMarch 2024 10:25amCHF (congestive heart failure)acuteMarch 2024 10:25amChronic kidney disease, stage 3bacute August 11, 2024 10:25amHyperlipidemiaacuteMarch 2024 10:25amHypertensive nephropathyacuteMarch 2024 10:25amIron deficiencyacuteUc [facility] 2024 10:25amObstructive nephropathyacuteMarch 2024 10:25am [facility] Work Phone: 1(315) 432-624003-19-2025 Evaluation note* Diagnosis Onset Date Resolution Status Admit Date Abdominal aortic aneurysm without ruptur e acuteMarch 2024 10:25amAnemiaacuteMarch 2024 10:25amCHF (congestive heart failure)acuteU[facility] 2024 10:25amChronic kidney disease, stage 3bacute August 11, 2024 10:25amHyperlipidemiaacuteMarch 2024 10:25amHypertensive nephropathyacuteMarch 2024 10:25amIron deficiencyacuteMar 2024 10:25amObstructive nephropathyacuteMar 2024 10:25amAneurysm of left popliteal arteryacuteMa2024 9:09am [facility] Work Phone: 1(455) 658-410203-19-2025 Evaluation note* Diagnosis Onset Date Resolution Status Admit Date Abdominal aortic aneurysm without ruptur e acuteMarch 2024 10:25amAnemiaacuteMarch 2024 10:25amCHF (congestive heart failure)acute[facility] 2024 10:25amChronic kidney disease, stage 3bacute August 11, 2024 10:25amHyperlipidemiaacuteSaint [facility]ch 2024 10:25amHypertensive nephropathyacute[facility]20[facility] 10:25amIron deficiencyacuteSaint [facility] Hospitalch 2024 10:25amObstructive nephropathyacute[facility] 2024 10:25amAneurysm of left popliteal arteryacuteNc2024 9:09amAbdominal aortic aneurysm without ruptureacuteNovember 03, 2024 3:51pmAnemiaacuteNov[facility]2024 3:51pmCHF (congestive heart failure)acuteNov[facility]2024 3:51pmChronic kidney disease, stage 3bacuteNovember 03, 2024 3:51pmHyperlipidemiaacuteNov[facility]2024 3:51pm Hypertensive nephropathyacuteNov[facility]2024 3:51pmIron deficiencyacuteNovember 03, 2024 3:51pmObstructive nephropathyacuteNov[facility]2024 3:51pm [facility] Work Phone: 1(391) 249-750703-06-2025 History of Present illness Narrative* Teo Al [...] days. He was against going to the [facility] to follow-up on colonic polyp as was suggested by his local managing partner. He reports no syncope or presyncope his [...] leading to LAD stenting December 2023 at [facility], continue Plavix, high intensity statin, patient [...] surgery, he is refusing follow-up at the [facility] 11- history of bladder cancer followed by [...] tablet daily in the evening. Follow with [facility]. Patient will take coumadin and eliquis together for 3 days only, Disp: 14 tablet, Rfl: 0 Assessment/Plan 1. Cardiomyopathy, ischemic Follow Up In Cardiology 2. Paroxysmal atrial fibrillation (Multi) 3. High risk medication use 4. 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 5. S/P PTCA (percutaneous transluminal coronary angioplasty) 6. ST elevation myocardial infarction (STEMI), unspecified artery (Multi) 7. Essential hypertension 8. Dyslipidemia 9. Stage 3a chronic kidney disease (Multi) 10. Transient cerebral ischemia, unspecified type 11. Hematuria, unspecified type 12. Hyperthyroidism 13. BMI 26.0-26.9,adult 14. Former smoker Scribe Attestation By signing my name below, I, Pebbles Escobedo LPN , Isidoro attest that this documentation has been prepared [...] exam, discussion and plan. documented in this [facility] Work Phone: 1(289) 225-607603-06-2025 Instructions* Patient Instructions* Pebbles Arcos LPN - [...] through Care Everywhere. * Heart Healthy Diet (Jamaican) documented in this [facility] Work Phone: 1(471) 779-265402-20-2025 Hospital Discharge instructions Patient Education 07/15/2024 14:05:29 [...] cells. Follow these instructions at home: Take lpgs-aqz-cldendv and prescription medicines only as told by [...] is important. Where to find more information [place] [employer] (ACS): cancer.org National Cancer [place] (NCI): cancer.gov Contact a health care provider [...] provider. Document Revised: 04/22/2022 Document Reviewed: 04/22/2022 Evercam Patient Education 2023 Diagnostic Hybrids. Follow Up Care 06/01/2024 11:03:36 With:HEATHER OMALLEY PA-C, URL Address: [address] [facility] [place] [address] When:Within 1 Month(s) [facility] 02-20-2025 NotePatient Education Oncology Bladder Cancer Bladder [...] Follow these instructions at home: ??? Take jcrc-ill-pdvkhis and prescription medicines only as told by [...] important. Where to find more information ??? [place] Cancer Society (ACS): cancer.org ??? National Cancer [place] (NCI): cancer.gov Contact a health care provider [...] This information is n (more content not included)...[facility] 06-07-2024 NotePatient Education Urology Hematuria, Adult [...] these instructions at home: Medicines ??? Take oiry-bod-vmyxidt and prescription medicines only as told by [...] the blood stops without treatment. ??? Take fyhr-ogo-aqwvxet and prescription medicines only as told by your health care provider. ??? Drink enough fluid to keep your urine pale yellow. This information is not intended to replace advice given to you by your health care provider. Make sure you discuss any questions you have with your health care provider. Document Revised: 01/10/2021 Document Reviewed: 01/10/2021 [employer]cam Patient Education ? 2023 Diagnostic Hybrids.[facility] 05-21-2024 History of Present illness Narrative* [...] described. They are considering consultation at the [facility] for large colonic polyp that might need [...] leading to LAD stenting December 2023 at [facility], continue Plavix, high intensity statin, patient [...] he is following for that at the [facility]. 11- history of bladder cancer followed by [...] tablet daily in the evening. Follow with [facility]. Patient will take coumadin and [...] Stimulating Hormone 3. 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 4. S/P PTCA [...] name below, I, Pebbles Escobedo LPN , Scribbell attest that this documentation has been prepared [...] exam, discussion and plan. documented in this [facility] Work Phone: 1(334) 679-715512-27-2024 Instructions* Patient Instructions* Pebbles Arcos LPN - [...] through Care Everywhere. * Heart Healthy Diet (Jamaican) documented in [facility]UC [facility] Work Phone: 1(685) 873-408612-19-2024 History of Present illness Narrative* Stanley Emerson [...] Do you have a medical power of collections attorney?: No Objective : BP 122/74 Pulse [...] through a living will, durable power of collections attorney for healthcare, or other advanced directives. [...] on May 29, 2024 documented in this encounterMet[facility] CenterNjtdodlmfa66-28-9555 History of Present illness Narrative* Stanley Emerson [...] to encourage good nutrition. documented in this encounterMetropolitan [facility] CenterGbnsuqqsoj05-16-9942 Hospital Discharge instructions Patient Education 04/06/2024 11:31:42 [...] provider. Document Revised: 08/01/2021 Document Reviewed: 04/27/2021 Evercam Patient Education 2021 Diagnostic Hybrids. 04/06/2024 11:28:52 Cancer Screening for Males Cancer [...] if anything looks unusual. Males with a kvtqrv-ndsa-lqndwh risk for skin cancer may want to see a skin toggler (retread mold operator) for an annual body check. Where to find more information [place] Cancer [employer]: cancer.org Centers for Disease Control and Prevention: cdc.gov National Cancer [place]: cancer.gov Contact a health care provider if: [...] Document Reviewed: 12/02/2022 Elsevier Patient Education 2023 Diagnostic Hybrids. Follow Up Care 02/25/2024 15:13:08 With:ARLENE CASILLAS, Katia Hall, URL Address: [facility] [address] , [place] [address]- When: Unknown [facility] 11-12-2024 NotePatient Education Oncology Cancer Screening for [...] if anything looks unusual. Males with a uhapum-nxzb-taselw risk for skin cancer may want to see a skin toggler (dermatologi (more content not included)...[facility]10-24-2024 History of Present illness Narrative* Stanley [...] further evaluation or treatment. documented in this encounterMetropolitan [facility] CenterLsofuibiwi41-46-9467 History of Present illness Narrative* Leanne Soriano [...] m (6' 2 ) documented in [facility]UC [facility] Work Phone: 1(583) 680-260309-24-2024 History of Present illness Narrative* Stanley Emerson [...] 1 each; Refill: 0 documented in this encounterMetropolitan [facility] Psych[facility] CenterEugunkwbli76-71-3097 History of Present illness Narrative* Teo Al MD - 02/10/2024 9:20 AM EDT Subjective Alex Anderson is a 78 y.o. male Chief Complaint Hospital Follow-up HPI 78-year-old white male who recent underwent LAD stenting for anterior STEMI at [facility] by Dr. Pruett. He subsequently developed [...] leading to LAD stenting December 2023 at [facility], continue Brilinta, high intensity statin, patient [...] medication use 3. 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 4. S/P PTCA (percutaneous transluminal coronary angioplasty) 5. Essential hypertension 6. Dyslipidemia 7. Stage 3a chronic kidney disease (Multi) 8. Transient cerebral ischemia, unspecified type 9. BMI 26.0-26.9,adult 10. Former smoker Scribe Attestation By signing my name below, IPebbles LPN, Scribbell attest that this documentation has been prepared [...] exam, discussion and plan. documented in this [facility] Work Phone: 1(441) 109-986209-17-2024 Instructions* Patient Instructions* Pebbles Arcos LPN - [...] through Care Everywhere. * Heart Healthy Diet (Jamaican) documented in this [facility] Work Phone: 1(663) 188-907008-30-2024 Consult note Author Rogelio Rai [facility] January 23, 2024 12:43pmNote Date/TimeAugust 2023 12:29pm[place] [address] Physiatry (Rehab) Consult Note Signed Patient: Alex Anderson MR#: [id number] : 1945 Acct:[id number] Age/Sex: 78 / M Adm Date: 4 Loc: Room: 0B2388-8 Type: ADM IN Attending Dr: Nas Pruett DO Copies to: MD Rogelio Richards MD W Scott Sheldon, DO~ Etiologic Dx/Impairment Group Narrative Narrative: Ischemic cardiomyopathy HPI Consult Date: 01/23/24 Requesting Physician: Nas Pruett DO Primary Care Provider: Stanley Emerson MD Consult Narrative Reason for consult: functional decline HPI: Mr. Anderson is an 78-year-old male admitted with multifactorial functional decline in the setting ofischemic cardiomyopathy status post mid LAD stenting for [...] of Systems Unobtainable due to mental status [facility] Source: Obtained From Family Medical History Zapien catheter in place BPH (benign prostatic hyperplasia) [...] Son [facility] history of mental disorder [facility] Problem: Diagnosed with Mental Illness Social History [...] Appearance Clear Urine pH 5.5 Ur Specific [place] 1.022 Urine Protein Trace H Urine Glucose [...] and obtained and summated medical records and haveordered follow up lab tests and imaging studies as needed for rehabilitation care. Assessment/Plan (1) Ischemic cardiomyopathy: (2) Atrial fibrillation, new onset: (3) ST elevation myocardial infarction (STEMI) of anterior wall: (4) Sleep-wake cycle disorder: (5) Impaired mobility and activities of daily living: Plan Mr. nAderson is an 78-year-old male admitted with multifactorial functional decline in the setting ofischemic cardiomyopathy status post mid LAD stenting for [...] like last night are common in hospitalized patientsand may resolve with med adjustments, which they understand. However, they really want him home Brent recommended at least another day or two in hospital with regulation of sleep/wake cycle then possibly home with home health care. If at that point , daughter and son feel are unable to care forhim, would recommend SNF closer to home in [place]. I understand this may be a discrepancy in family wishes from days prior but perhaps events overnight made them more compelled to try to take him home. -All agreeable to plan of care -Thank you for consult. Patient was personally seen by me, Dr. Rai, on the day of encounter, reviewed the history and therelevant portions of the chart, including current orders, allied health and child welfare consultant notes, labs/imaging and performed diaz elements of exam and I formulated the plan of care and facilitated the medical decision making. I completed a substantive portion of this encounter, the medical decision making portion of this note in its entirety, including Allied health note review, nursing note review, child welfare consultant note review, discussion with nursing and case management, and more than 50% of my time was spent on counseling and coordination of care, time spent 40 minutes Documented By: Rogelio Rai MD 01/23/24 1207 Signed By: <Electronically signed by Rogelio Rai MD> 01/23/24 1243 [facility] Work Phone: 1([phone]) 334-882408-30-2024 Progress note Author Isaac Edwards [facility] January 23, 2024 12:01pmNote Date/TimeAugust 2023 11:[address] [address] Progress Note Signed Patient: Alex Anderson MR#: [id number] : 1945 Acct:[id number] Age/Sex: 78 / M Adm Date: 4 Loc: Room: [address] [place] [address] Type: ADM IN Attending Dr: Nas Pruett DO Copies to: ~ Date of Service: 01/23/2024 Progress Narrative Note PROGRESS NOTE Progress Note: Patient had episode of agitation/sundowning last evening. His chronic indwelling zapien catheter hasbeen changed per nursing. He is stable from a respiratory perspective on room air. Pulmonary has nothing further to add. We will sign off. Please call if we can be of assistance. Documented By: Isaac Edwards MD 4 1158 Signed By: <Electronically signed by MD Isaac Edwards> 01/23/24 1201 [facility] Work Phone: 1(762) 546-789908-30-2024 Consult note Author Rob Almazan [facility] January 23, 2024 3:21pmNote Date/TimeAugust 2023 8:[place] [id number] Hospitalist Consult Note Signed Patient: Alex Anderson MR#: [id number] : 1945 Acct:[id number] Age/Sex: 78 / M Adm Date: 4 Loc: 4P Room: [address] [place] [address] Type: ADM IN Attending Dr: Nas Pruett DO Copies to: Edward J HemeyerMD Rob MD W Scott Sheldon, DO~ HPI DATE OF CONSULTATION: 01/23/24 REQUESTING PROVIDER: Nas Pruett Consult Narrative Reason for Consult: Acute Confusion HPI: Mr. Anderson is an 78-year-old male with PMH of A-fib on amiodarone and Eliquis, ischemic CM, systolic CHF, who was admitted here for STEMI and had stenting of the LAD. Patient did require ICU stay dueto hypotension, and slow up titrationof GDMT before [...] dose, patient has been sleeping for most ofthe night. On my assessment that 830 this a.m., patient isstill sleeping. He was recently transferred out of ICU 2 days prior, and has had more delirium since that time. Last night, patient did have repeated episodes where he got out of bed, was holding his Zapien catheter in his hands and sat on the ground in his hospital room. He was then combative, and securityalert was called. He does appear to have some chronic cognitive issues, per patient's . Review of Systems Review of Systems Review of systems: 10 point ROS reviewed and is negative except for that which is noted above in HPI [facility] Medical History Zapien catheter in place BPH (benign prostatic hyperplasia) [...] 4.33, Hgb 12.2 L, Hct 37.1 L, MCV85.6, MCH 28.1, MCHC 32.9, RDW 15.6 H, Plt Count 221, MPV 8.4, Neut % (Auto) 64.3, Lymph % (Auto) 15.6, [place] % (Auto) 16.0, Eos % (Auto) 3.6, Baso % (Auto) 0.5, Nucleat RBC Rel Count 0.1, Neut # (Auto) 5.7, Lymph # (Auto) 1.4, [place] # (Auto) 1.4 H, Eos # (Auto) 0.3, Baso # (Auto) 0.0, PHA CreatinineClear 46.56, Sodium 137, Potassium 3.9, Chloride 107, Carbon Dioxide 20.1 L, Anion Gap 13.8, BUN 35H, Creatinine 1.59 H, Est GFR (CKD-EPI) 43.613, [...] environmental measures: TV on, lights on, blinds open,more personal interactions/re-orientation throughout the daytime, TV/lights off overnight.? Minimalinterruptions overnight including vital signs checks STEMI status post PCI A-fib on amiodarone and Eliquis Ischemic CM/HFrEF Patient does appear to be stable from a cardiovascular standpoint. No cardiorespiratory complaints. -Cardiac medications for GDMT being managed by cardiology; Amiodarone, Eliquis, aspirin, atorvastatin, Coreg CODE STATUS: Full Code Documented By: Rob Almazan MD 4 0833 Signed By: <Electronically signed by Rob Almazan MD> 01/23/[address] [place] [address] Work Phone: 1(457) 868-318908-30-2024 Progress note Author Jakob Lomax [facility] January 23, 2024 12:26amNote Date/TimeAugust 2023 12:26[place] [address] Progress Note Signed Patient: Alex Anderson MR#: [id number] : 1945 Acct:[id number] Age/Sex: 78 / M Adm Date: 4 Loc: Room: [address] [place] [address] Type: ADM IN Attending Dr: Nas Pruett DO Copies to: ~ Date of Service: 01/22/2024 Progress Narrative Note PROGRESS NOTE Progress Note: Patient had a security alert called earlier this evening after getting aggressive with PCT, I responded to the security alert and received full report from bedside and full charge bookkeeper regarding the events.patient did fall but only to his butt and knees, he did not hit head head and there was no sign of any head trauma. By the time I arrived security had already responded and the situation was calming down. Within minutes the patient was back in bed and security at bedside, patients was notifiedand she drove to the hospital to stay [...] will plan to use Haldol 5mg IM, full charge bookkeeper aware to notify me if needed. Formal consult to come tomorrow Documented By: Jakob Lomax DO 01/23/24 002 Signed By: <Electronically signed by Jakob Lomax DO> 01/23/246 [facility] Work Phone: 1(488) 812-680808-29-2024 Progress note Author Teo Al [facility] January 22, 2024 2:01pmNote Date/TimeAugust 2023 2:01pm[place] [address] Cardiology Progress Note Signed Patient: Alex Anderson MR#: [id number] : 1945 Acct:[id number] Age/Sex: 78 / M Adm Date: 4 Loc: Room: [address] [place] [address] Type: ADM IN Attending Dr: Nas Pruett [...] need toby found as the next step. talent acquisition lead and PT will be consulted Exam Physical [...] heart failure Documented By: Teo Al MD, [facility] 4 1359 Signed By: <Electronically signed by MD [place] Al> 01/22/24 1401 [facility] Work Phone: 1(337) 853-478008-29-2024 Progress note Author Isaac Edwards [facility] January 22, 2024 1:58pmNote Date/TimeAugust 2023 1:58pm[place] [address] Pulmonology Progress Note Signed Patient: Alex Anderson MR#: [id number] : 1945 Acct:[id number] Age/Sex: 78 / M Adm Date: 4 Loc: 4 Room: [address] [place] [address] Type: ADM IN Attending Dr: Nas Pruett [...] with concern for colonization of his chronic Zapien catheter with patient requiring changes per urology due to prior history of bladder cancer andBPH. Patient is stable and has been transferred 4P. I have no new recommendations and will follow patient peripherally. Documented By: Isaac Edwards MD 1356 Signed By: <Electronically signed by MD Isaac Edwards> 01/22/24 [facility]8 [facility] Work Phone: 1(688) 405-732508-28-2024 Progress note Author Teo Al [facility] January 21, 2024 5:24pmNote Date/TimeAugust 2023 5:24pm[place] [address] Cardiology Progress Note Signed Patient: Alex Anderson MR#: [id number] : 1945 Acct:[id number] Age/Sex: 78 / M Adm Date: 4 Loc: 4 Room: [address] [place] [address] Type: ADM IN Attending Dr: Nas Pruett DO Copies to: ~ Date of Service: 01/21/2024 Subjective Principal diagnosis: Anterior ST elevation myocardial infarction Interval history: Patient is comfortable and has no complaints. His at the bedside, discussed the case with the and his son who was present as well.. He remains in atrial fibrillation with a heart rate undercontrol. The patient is confused but is pleasant. [...] % (Auto) 64.3 Lymph % (Auto) 15.6 [place] % (Auto) 16.0 Eos % (Auto) 3.6 Baso % (Auto) 0.5 Nucleat RBC Rel Count 0.1 Neut # (Auto) 5.7 Lymph # (Auto) 1.4 [place] # (Auto) 1.4 H Eos # (Auto) [...] heart failure Documented By: Teo Al MD, [facility] 4 1722 Signed By: <Electronically signed by MD [place] Al> 01/21/24 2162 [facility] Work Phone: 1(368) 163-310508-28-2024 Progress note Author Isaac Edwards [facility] January 21, 2024 11:45amNote Date/TimeAugust 2023 11:[address] [address] Pulmonology Progress Note Signed Patient: Alex Anderson MR#: [id number] : 1945 Acct:[id number] Age/Sex: 78 / M Adm Date: 4 Loc: Room: 9E9445-8 Type: ADM IN Attending Dr: Nas Pruett [...] with concern for colonization of his chronic Zapien catheter with patient requiring changes per urology due to prior history of bladder cancer andBPH. Consult will be placed and certainly we can try to replace Zapien if urology is aware and is available should we be unsuccessful in placing Zapien. Patient is off dopamine and is off spironolactone, BROOKE inhibitor, and Coreg atthis time and will defer to cardiology. Patient is stable for transfer out of the ICU from a critical care medicine perspective. Documented By: Isaac Edwards MD 4 1128 Signed By: <Electronically signed by MD Isaac Edwards> 01/21/24 1145 [facility] Work Phone: 1(893) 475-997408-27-2024 Progress note Author [facility]Pro[facility] January 20, 2024 3:58pmNote Date/TimeAugust 2023 3:58pm[place] [address] Cardiology Progress Note Signed Patient: Alex Anderson MR#: [id number] : 1945 Acct:[id number] Age/Sex: 78 / M Adm Date: 4 Loc: Room: [address] [place] [address] Type: ADM IN Attending Dr: Nas Pruett DO Copies to: ~ Date of Service: 01/20/2024 Subjective Principal diagnosis: Anterior ST elevation myocardial infarction Interval history: Patient is pleasantly comfortable and has no complaints. His at the bedside. Dopamine drip hasbeen discontinued and the patient tolerated that fairly [...] % (Auto) 71.9 Lymph % (Auto) 11.8 [place] % (Auto) 14.3 Eos % (Auto) 1.7 Baso % (Auto) 0.3 Nucleat RBC Rel Count 0.0 Neut # (Auto) 6.8 Lymph # (Auto) 1.1 [place] # (Auto) 1.4 H Eos # (Auto) [...] heart failure Documented By: Teo Al MD, [facility] [id number] Signed By: <Electronically signed by [facility] Teo Al> 01/20/24 7377 [facility] Work Phone: 1(782) 139-208408-27-2024 Progress note Author Isaac Edwards [facility] January 20, 2024 12:59pmNote Date/TimeAugust 2023 8:[address] [address] Pulmonology Progress Note Signed Patient: Alex Anderson MR#: [id number] : 1945 Acct:[id number] Age/Sex: 78 / M Adm Date: 4 Loc: Room: 6X5968-9 Type: ADM IN Attending Dr: Nas Pruett [...] 3 01/17/24 14:45 Urine Culture - Final Zapien Port Enterococcus faecalis Assessment/Plan Assessment/Plan (1) ST [...] with concern for colonization of his chronic Zapien catheter with patient requiring changes per urology due to prior history of bladder cancer. Patient has been taken off dopamine. I have no further recommendations at this time. Patient is stable on room air. We will follow p eripherally and be available as needed. Documented By: Isaac Edwards MD [id number] Signed By: <Electronically signed by MD Isaac Edwards> 01/20/24 8887 [facility] Work Phone: 1(360) 729-380208-26-2024 Progress note Author Isaac Edwards [facility] January 19, 2024 1:20pmNote Date/TimeAugust 2023 9:06[place] [address] Pulmonology Progress Note Signed with Addenda Patient: Alex Anderson MR#: [id number] : 1945 Acct:[id number] Age/Sex: 78 / M Adm Date: 4 Loc: Room: [address] [place] [address] Type: ADM IN Attending Dr: Nas Pruett DO Copies to: ~ ADDENDUM1 Given finding of Enterococcus faecalis from urine culture of January 17, 2024 with relatively benignappearing urinalysis, we will change the patient's chronic indwelling Zapien with concern for colonization. Note that the patient was scheduled to have a Zapien catheter change tomorrow. Addendum Documented By: MD [...] 3 01/17/24 14:45 Urine Culture - Preliminary Zapien Port Enterococcus faecalis Assessment/Plan Assessment/Plan (1) ST [...] signed by MD Isaac Edwards> 01/19/24 1219 [facility] Work Phone: 1(606) 767-986308-26-2024 Progress note Author Teo Al [facility] January 19, 2024 12:11pmNote Date/TimeAugust 2023 12:11[place] [address] Cardiology Progress Note Signed Patient: Alex Anderson MR#: [id number] : 1945 Acct:[id number] Age/Sex: 78 / M Adm Date: 4 Loc: Room: [address] [place] [address] Type: ADM IN Attending Dr: Nas Pruett [...] % (Auto) 78.5 Lymph % (Auto) 8.8 [place] % (Auto) 11.9 Eos % (Auto) 0.4 Baso % (Auto) 0.4 Nucleat RBC Rel Count 0.1 Neut # (Auto) 8.6 H Lymph # (Auto) 1.0 [place] # (Auto) 1.3 H Eos # (Auto) [...] heart failure Documented By: Teo Al MD, [facility] 4 [id number] Signed By: <Electronically signed by [facility] Teo Al> 01/19/24 1211 [facility] Work Phone: 1(800) 830-463908-25-2024 Progress note Author Justina Lara [facility] January 18, 2024 3:10pmNote Date/TimeAugust 2023 3:10pm[place]on[place] [address] Pulmonology Progress Note Signed Patient: Alex Anderson MR#: [id number] : 1945 Acct:[id number] Age/Sex: 78 / M Adm Date: 4 Loc: Room: [address] [place] [address] Type: ADM IN Attending Dr: Nas Pruett [...] 3 01/17/24 14:45 Urine Culture - Preliminary Zapien Port Enterococcus faecalis Assessment/Plan Assessment/Plan (1) ST [...] <Electronically signed by Justina Lara MD> 01/18/24 7039 [facility] Work Phone: 1(196) 252-313408-25-2024 Progress note Author Ana Castro [facility] January 18, 2024 12:49pmNote Date/TimeAugust 2023 12:50pm[place] [address] Cardiology Progress Note Signed Patient: Alex Anderson MR#: [id number] : 1945 Acct:[id number] Age/Sex: 78 / M Adm Date: 4 Loc: Room: [address] [place] [address] Type: ADM IN Attending Dr: Nas Pruett [...] MPV Neut % (Auto) Lymph % (Auto) [place] % (Auto) Eos % (Auto) Baso % (Auto) Nucleat RBC Rel Count Neut # (Auto) Lymph # (Auto) [place] # (Auto) Eos # (Auto) Baso # (Auto) PHA Creatinine Clear Sodium Potassium Chloride Carbon Dioxide Anion Gap BUN Creatinine Est GFR (CKD-EPI) Glucose POC Glucose 115 126 Calcium Urine Color Light-yellow Urine Appearance Cloudy A Urine pH 6.0 Ur Specific [place] 1.018 Urine Protein Trace H Urine Glucose [...] % (Auto) 75.1 Lymph % (Auto) 11.5 [place] % (Auto) 12.8 Eos % (Auto) 0.2 Baso % (Auto) 0.4 Nucleat RBC Rel Count 0.0 Neut # (Auto) 9.1 H Lymph # (Auto) 1.4 [place] # (Auto) 1.5 H Eos # (Auto) 0.0 Baso # (Auto) 0.0 PHA Creatinine Clear 46.65 Sodium 136 Potassium 3.7 Chloride 107 Carbon Dioxide 21.2 Anion Gap 11.5 BUN 29 H Creatinine 1.59 H Est GFR (CKD-EPI) 43.613 Glucose 125 H POC Glucose Calcium 8.7 Urine Color Urine Appearance Urine pH Ur Specific [place] Urine Protein Urine Glucose (UA) Urine Ketones [...] - Personal history of other diseases of thecirculatory system (6) Hyperlipidemia: Qualifiers: Hyperlipidemia type: unspecified [...] signed by MD Ana Castro> 01/18/24 1249 [facility] Work Phone: 1(505) 864-972308-24-2024 Progress note Author Ana Castro [facility] January 17, 2024 12:43pmNote Date/TimeAugust 2023 12:43pm[place]on[place] [address] Cardiology Progress Note Signed Patient: Alex Anderson MR#: [id number] : 1945 Acct:[id number] Age/Sex: 78 / M Adm Date: 4 Loc: Room: [address] [place] [address] Type: ADM IN Attending Dr: Nas Pruett [...] MPV Neut % (Auto) Lymph % (Auto) [place] % (Auto) Eos % (Auto) Baso % (Auto) Nucleat RBC Rel Count Neut # (Auto) Lymph # (Auto) [place] # (Auto) Eos # (Auto) Baso # (Auto) Platelet Estimate Plt Morphology Comment RBC Morphology PHA Creatinine Clear Sodium Potassium Chloride Carbon Dioxide Anion Gap BUN Creatinine Est GFR (CKD-EPI) Glucose POC Glucose POC Glucose Comment Calcium Troponin I High Sens 46742.4 H* 323599.2 H* 864956.4 H* Triglycerides Cholesterol LDL Cholesterol, Calc VLDL Cholesterol HDL Cholesterol Cholesterol/HDL Ratio 01/16/24 01/16/24 01/16/24 18:37 19:15 21:31 Corrected WBC Uncorrected WBC Count RBC Hgb Hct MCV MCH MCHC RDW Plt Count MPV Neut % (Auto) Lymph % (Auto) [place] % (Auto) Eos % (Auto) Baso % (Auto) Nucleat RBC Rel Count Neut # (Auto) Lymph # (Auto) [place] # (Auto) Eos # (Auto) Baso # (Auto) Platelet Estimate Plt Morphology Comment RBC Morphology PHA Creatinine Clear Sodium Potassium Chloride Carbon Dioxide Anion Gap BUN Creatinine Est GFR (CKD-EPI) Glucose POC Glucose 119 118 POC Glucose Comment Glu2: cleaned meter Calcium Troponin I High Sens 67145.2 H* Triglycerides Cholesterol LDL Cholesterol, Calc VLDL Cholesterol HDL Cholesterol Cholesterol/HDL Ratio 01/17/24 01/17/24 01/17/24 04:37 07:14 11:52 Corrected WBC 17.7 H Uncorrected WBC Count 17.7 H RBC 4.46 Hgb 12.7 L Hct 38.4 L MCV 86.1 MCH 28.4 MCHC 33.0 RDW 15.8 H Plt Count 135 L MPV 9.0 Neut % (Auto) 77.1 Lymph % (Auto) 6.9 [place] % (Auto) 15.6 Eos % (Auto) 0.0 Baso % (Auto) 0.4 Nucleat RBC Rel Count 0.0 Neut # (Auto) 13.6 H Lymph # (Auto) 1.2 [place] # (Auto) 2.8 H Eos # (Auto) [...] Comment Calcium 8.9 Troponin I High Sens 59682.6 H* Triglycerides 67 Cholesterol 74 L LDL [...] - Personal history of other diseases of thecirculatory system (6) Hyperlipidemia: Qualifiers: Hyperlipidemia type: unspecified [...] signed by MD Ana Castro> 01/17/24 1243 [facility] Work Phone: 1(994) 286-590408-24-2024 Progress note Author Justina Lara [facility] January 17, 2024 11:57amNote Date/TimeAugust 2023 11:54[place] [address] Pulmonology Progress Note Signed Patient: Alex Anderson MR#: [id number] : 1945 Acct:[id number] Age/Sex: 78 / M Adm Date: 4 Loc: Room: [address] [place] [address] Type: ADM IN Attending Dr: Nas Pruett [...] signed by Justina Lara MD> 01/17/24 1157 [facility] Work Phone: 1(408) 980-418108-23-2024 Consult note Author Justina Lara [facility] January 16, 2024 3:19pmNote Date/TimeAugust 2023 3:16pm[place]on[place] [address] Pulmonology Consult Note Signed Patient: Alex Anderson MR#: [id number] : 1945 Acct:[id number] Age/Sex: 78 / M Adm Date: 4 Loc: Room: [address] [place] [address] Type: REG MSC Attending Dr: Nas Pruett DO Copies to: [...] diagnosed with acute IL and transferred from [facility]. He underwent left heart catheterization and stent in mid LAD Review of Systems Review of Systems All other systems reviewed & are negative unless noted below or in HPI Constitutional Constitutional: Reports as per HPI Cardiovascular Cardiovascular: Reports as per HPI and Reports chest pain at rest [facility] Medical History (Updated 01/16/24 @ 12:52 by Nas Pruett DO) Zapien catheter in place BPH (benign prostatic hyperplasia) [...] Son Family history of mental disorder [facility] Problem: Diagnosed with Mental Illness Social [...] signed by Justina Lara MD> 01/16/24 1519 [facility] Work Phone: 1(330) 301-651808-23-2024 History and physical note Author Nas Pruett [facility] January 16, 2024 12:53pmNote Date/TimeAugust 2023 12:45pm[place] [address] Cardiology H&P Signed Patient: Alex Anderson MR#: [id number] : 1945 Acct:[id number] Age/Sex: 78 / M Adm Date: 4 Loc: Room: [address] [place] [address] Type: [facility] Attending Dr: Nas Pruett DO Copies to: MD Nas Richards, ~ Date of Service: 01/16/2024 Cardiology HPI History of Present Illness Chief complaint: Anterior STEMI HPI: Mr. Anderson is a 78 year old male transferred from [place] with acute anterior ST elevation IL; original phone call taken from outside ER attending at 09:30 AM. Patient arrived in [facility] at 1116, after attempted right femoral approachand [...] epigastrium and retrosternal area (beginning of his suspectedsymptomatology); finally went to [place] ER around 9 30 this morning whereupon he was appropriately he diagnosed, appropriate upstream therapy instituted under my direction after discussion with ER attending, and emergently transferred to [facility] for revascularization. Total 60 minutes nonprocedural critical care time were devoted to the outside ERattending and staff, [facility] staff, nursing staff, patient and family pre and post procedurally Review of Systems Review of Systems All other systems reviewed & are negative unless noted below or in HPI Constitutional Constitutional: Reports as per HPI Cardiovascular Cardiovascular: Reports as per HPI and Reports chest pain at rest [facility] Medical History (Updated 01/16/24 @ 12:52 by Nas Pruett, DO) Zapien catheter in place BPH (benign prostatic hyperplasia) [...] - Personal history of other diseases of thecirculatory system (6) Hyperlipidemia: Qualifiers: Hyperlipidemia type: unspecified Qualified Code(s): E78.5 - Hyperlipidemia, unspecified Code(s): E78.5 - Hyperlipidemia, unspecified (7) Hypertension: Code(s): I10 - Essential (primary) hypertension (8) Chronic kidney disease, stage 3b: Code(s): N18.32 - Chronic kidney disease, stage 3b Plan Emergent cath/PCI Documented By: Nas Pruett DO 01/16/24 1244 Signed By: <Electronically signed by Nas Pruett DO> 01/16/24 1250 [facility] Work Phone: 1(971) 580-229108-23-2024 Procedure [facility]08-23-2024 Procedure [facility]08-21-2024 Procedure [facility]05-10-2024 Hospital Discharge instructions Patient Education 10/03/2023 14:19:12 [...] Follow these instructions at home: Medicines Take naoo-jgd-lklhkby and prescription medicines only as told by [...] provider. Document Revised: 01/31/2021 Document Reviewed: 01/31/2021 [employer] Patient Education 2022 [employer]. Follow Up Care 08/15/2023 11:04:15 With:ARLENE CASILLAS, Katia Hall, URRomina Address: [facility] [address] , [place] [address]- [phone] When: Unknown [facility] 02-05-2024 Hospital Discharge instructions Patient Education 06/30/2023 [...] Follow these instructions at home: Medicines Take ynfh-eue-ifwhjut and prescription medicines only as told by [...] provider. Document Revised: 01/31/2021 Document Reviewed: 01/31/2021 [employer] Patient Education 2022 [employer]. Follow Up Care 05/06/2023 11:11:29 With:ARLENE CASILLAS, ADRIA Sterling Address: [facility] [address], [place] [address] [phone] When: Unknown Comments:1 day for catheter removal [facility] 01-16-2024 Hospital Discharge instructions Patient Education 06/10/2023 [...] to the nearest emergencyroom or call 911. Zapien Catheter Care, Male [...] underwear to absorb moisture and keep skin care technician. 6. Keep the drainage bag below the [...] With:Katia SAMUELS Address: [facility] [address] [place] [address]- Business (1) When:06/24/2023 15:15:55 Comments:for zapien removal [facility]12-12-2023 Evaluation note* Encounter Date Diagnosis Assessment Notes Treatment Notes Treatment Clinical Notes Apr, Primary hypertension (ICD-10 - I 10) [facility] Other 11-21-2023 Evaluation note* Encounter Date Diagnosis Assessment Notes Treatment Notes Treatment Clinical Notes Mar, Acute kidney injury (ICD-10 - N1 7.9) Acute kidney injury was likely postrenal from obstructive nephropathy. BUN peaked at 129 and creatinine 8.5 g deciliter. Kidney function improved gradually with placing Zapien catheter. Serum creatinine is back to baseline. Patient did not need hemodialysis. Mar,hronic kidney disease, stage 3b (ICD-10 - N18.32)Patient likely has CKD from arterionephrosclerosis. Baseline creatinine around 1.4 to 1.5 mg/dL. Pro/CAR 333 mg/dl likely from from zapien cath Blood pressures is elevated likely fro steroid Patient only metoprolol. No fluid overload. I also patient to stay away from NSAIDs and to keep himself well- hydrated. I will follow-up with the patientin 6 months Mar,ilateral hydronephrosis (ICD-10 - N13.30)Patient was found to have bilateral hydroureteronephrosis along with bladder mass. Patient was discharged with Zapien catheter . Zapien catheter remains in place. Patient is status post TURP . Patient follows with Dr. Samuels Mar,bdominal aortic aneurysm (AAA) without rupture, unspecified part (ICD-10 - I71.40)Patient was accidentally found to have large fusiform AAA during hospitalization. Status post stentplacement in June 2022 Mar,Hyperlipidemia, unspecified hyperlipidemia type (ICD-10 - E78.5) Patient is on statin Mar,Iron deficiency (ICD-10 - E61.1)Iron saturation improved with iron supplement. I asked the patient to continue humu-deo-irrrfdm iron supplement once or twice daily Mar,rimary hypertension (ICD-10 - I10)BP is elevated. Will start Norvasc 5 mg PO daily. i asked the patient to monitor Bp closely with tapering steroid dose [facility] Other 10-17-2023 Hospital Discharge instructions Patient Education [...] including vitamins, herbs, eye drops, creams, and jqfl-gzq-imhifcy medicines. Any problems you or family members [...] provider tells you to take them. Taking yuyf-ufh-rzqohuw medicines, vitamins, herbs, and supplements. Surgery safety [...] provider. Document Revised: 02/05/2022 Document Reviewed: 02/05/2022 [employer] Patient Education 2022 [employer] 03/11/2023 14:15:06 Benign Prostatic Hyperplasia Benign [...] urethra. Follow these instructions at home: Take gudo-bts-kortxwd and prescription medicines only as told by [...] provider. Document Revised: 11/28/2021 Document Reviewed: 11/28/2021 [employer] Patient Education 2022 [employer]. Follow Up Care 02/07/2023 16:01:50 With:ARLENE CASILLAS, Katia Hall, URL Address: [facility] [address] , [place] [address]- When:Within 3 Month(s) Comments:Sched cysto/FISH/Cytol/BT check [facility] 10-17-2023 Evaluation + Plan note Diagnostic Tests Pending * [facility] Fish and Urine Cyto ([facility]) 03/11/23 [facility]07-18-2023 Evaluation + Plan note Diagnostic Tests Pending * UroVysion Fish and Urine Cyto ([facility]) 12/10/22 [facility]07-18-2023 Hospital Discharge instructions Patient Education [...] if anything looks unusual. Men with a ygpwde-oxqh-pqetoi risk for skin cancer may want to see a skin toggler (retread mold operator) for an annual body check. What are the benefits of screening? Cancer screening is done to look for cancer in the very early stages, before it spreads and becomesharder to treat and before you would start to notice symptoms. Finding cancer early improves the chances of successful treatment. It may save your life. Where to find more information [place] [employer]: www.cancer.org Centers for Disease Control and Prevention: www.cdc.gov National Cancer [place]: www.cancer.gov Contact a health care provider if: [...] provider. Document Revised: 10/08/2021 Document Reviewed: 04/07/2020 [employer] [facility] Patient Education 2022 [employer]. Follow Up Care 11/15/2022 14:27:10 With:ARLENE CASILLAS, Katia Hall, URL Address: [facility] [address] , [place] [address]- When: Unknown [facility] 04-26-2023 Hospital Discharge instructions Patient [...] cells. Follow these instructions at home: Take ptvh-hkt-mvnkoby and prescription medicines only as told by [...] is important. Where to find more information [place] [employer] (ACS): cancer.org National Cancer [place] (NCI): cancer.gov Contact a health care provider [...] provider. Document Revised: 04/22/2022 Document Reviewed: 04/22/2022 [employer] Patient Education 2022 [employer]. Follow Up Care 08/26/2022 14:12:46 With:ARLENE CASILLAS, Katia Hall, URL Address: [facility] [address] , [place] [address]- When: Unknown [facility] 04-10-2023 NoteEXAM: XR CHEST 2 V HISTORY: Pre-surgery evaluation COMPARISON: None. TECHNIQUE: PA and lateral views of the chest. FINDINGS: The cardiomediastinal silhouette is normal. No focal consolidation is identified. There is no pneumothorax. No pleural effusion is noted. The osseous structures are intact. IMPRESSION: No acute cardiopulmonary process. Electronically authenticated by: CORKY FORD Date: 2022-09-02 14:17[facility]03-29-2023 Evaluation note* Encounter Date Diagnosis Assessment Notes Treatment Notes Treatment Clinical Notes Jul, Abdominal aortic ane urysm (AAA) without rupture, unspecified part (ICD-10 - [...] have his bladder tumor removal as scheduled. [facility] Other 03-08-2023 Evaluation + Plan note Diagnostic Tests Pending * [facility]ro[facility]ion Fish and Urine Cyto ([facility]) 07/31/22 [facility] 03-08-2023 Hospital Discharge instructions Patient Education [...] including vitamins, herbs, eye drops, creams, and snrb-bxs-gybweju medicines. Any problems you or family members [...] provider tells you to take them. Taking rapa-lxs-woahxom medicines, vitamins, herbs, and supplements. Tests You [...] 03/08/2010 Document Revised: 12/11/2018 Document Reviewed: 12/11/2018 [employer] Patient Education 2020 [employer]. Follow Up Care 07/25/2022 10:56:51 With:ARLENE CASILLAS, Katia Hall, URL Address: [facility] [address] , [place] [address]- When: Unknown [facility] [id number] Evaluation note* Encounter Date Diagnosis Assessment Notes [...] some bladder issues. I did call the [employer]. The device is compatible up to 3 Maggi for MRI. I explained this to the family and the patie nt. Jul,Other specified postprocedural states (ICD-10 - Z98.890) Jul,ersonal history of other diseases of the circulatory system (ICD-10 - Z86.79) [facility]* Encounter Date [...] plan all questions were addressed. I did givehim a AAA handout booklet today. We reviewed [...] plan to do this percutaneously under MAC. [facility] Other 01-17-2023 Hospital Discharge instructions Patient Education [...] including vitamins, herbs, eye drops, creams, and eebe-rng-dhgbngx medicines. Any problems you or family members [...] provider tells you to take them. ?Taking ddnn-hga-xsszuna medicines, vitamins, herbs, and supplements. Follow instructions [...] Follow these instructions at home: Medicines Take lxpl-wrz-npgkncf and prescription medicines only as told by [...] 05/09/2001 Document Revised: 05/04/2019 Document Reviewed: 05/04/2019 [employer] Patient Education 2020 [employer]. Follow Up Care 05/22/2022 13:37:28 With:[facility] Address: [address] [place] [address] Business (1) When: Unknown Comments:our ophthalmic pathologist will be contacting you for follow-up [facility] 01-12-2023 Evaluation note* Encounter Date Diagnosis Assessment [...] pelvis. The risks and benefits were explained aswell as medical surgical tenderness we also discussed potential complications the risk and management he understands wishes to proceed all his questions were addressed. [facility] Other 01-10-2023 Evaluation note* Encounter Date Diagnosis Assessment Notes Treatment Notes Treatment Clinical Notes May, Acute kidney injury (ICD-10 - N1 7.9) Acute kidney injury was likely postrenal from obstructive nephropathy. BUN peaked at 129 and creatinine 8.5 g deciliter. Kidney function improved gradually with placing Zapien catheter. Serum creatinine is back to baseline. Patient did not need hemodialysis. May,hronic kidney disease, stage 3b (ICD-10 - N18.32)Patient likely has CKD from arterionephrosclerosis. Baseline creatinine around 1.6 to 1.7 mg/dL. Last creatinine at discharge was 1.78 mg/dL and GFR 37 mm/min. Follow-up with the patient in 4 months with repeated UA along with protein creatinine ratio. I willcheck PTH along with calcium and phosphorus. Blood pressures well controlled. Patient only metoprolol. I also patient to stay away from NSAIDs and to keep himself well-hydrated. May,ilateral hydronephrosis (ICD-10 - N13.30)Patient was found to have bilateral hydroureteronephrosis along with bladder mass. Patient was discharged with Zapien catheter in place to follow-up with urology clinic as outpatient for further work-up of bladder mass and hydronephrosis May,bdominal aortic aneurysm (AAA) without rupture, unspecified part (ICD-10 - I71.40)Patient was accidentally found to have large fusiform AAA. Patient follows with vascular surgery asoutpatient this week May,Hyperlipidemia, unspecified hyperlipidemia type (ICD-10 - E78.5) Patient is on statin [facility] Other Discharge summary [facility] January 23, 2024 3:52pmNote Date/TimeAugust 2023 3:52pmEmily [place] [id number] Discharge Summary Signed Patient: Alex Anderson MR#: [id number] : 1945 Acct:[id number] Age/Sex: 78 / M Adm Date: 4 Loc: 4P Room: 1B7880-[address]: Nas Pruett DO Copies to: MD Teo Richards MD, [facility] Nas Pruett DO~ Providers Date of [...] to Physiatry Routine Comment: Consulting Provider: MIGUEL Jose Phys Med - Rehab Reason For Exam: [...] Hospital course: Patient was transferred from [facility] emergency department with anterior ST elevation myocardial infarction and was taken straight to the [facility] by Dr. Pruett and underwent urgent PCI of the LAD for subtotal occlusion. The procedure was uncomplicated. Following stenting of the LAD the patient developed atrial fibrillation requiring initiation of therapy with Eliquis and antiarrhythmictherapy with amiodarone. The patient developed significant hypotension [...] patient has baseline dementia and there was timeswhen he and became more agitated requiring therapy with [...] CL Iliac/Fem w/LHC - W Dariusz Pruett, Discharge Plan Discharge Plan Patient Disposition: Home Health Services Activity: Ambulate as Tolerated Diet: Low-Sodium and Low-Cholesterol Additional Instructions: DISCHARGE INSTRUCTIONS FOR ANGIOPLASTY/CORONARY/PERIPHERAL/STENT IMPLANT FOR ADULT ANTICOAGULATION -Since the greatest risk of a blood clot forming with the stent occurs in the first 2-3 weeks afterimplantation, you will need to take anticoagulants for at least 12-18 months. ANTICOAGULATION MEDICATION Aspirin 81mg once a day, Ticagrelor (Brilinta) 90mg twice a day STATIN MEDICATION Atorvastatin (Lipitor) 80 mg Drug-Eluting Stent (KATHERIN) DO NOT discontinue Brilinta/Aspirin during the first few months regardless of what you are advised by your family doctor or pharmacist, without first calling the statistics manager who implanted the stent. If you [...] weight lifting, stair steppers, etc. until the statistics manager approves these activities. Check with the statistics manager on your first follow-up visit. CALL YOUR CRACKING AND FANNING MACHINE OPERATOR: -If bleeding should occur from the catheter insertion site- apply pressure to the site then immediately call us. -Report any fever, redness, drainage, increased swelling, or firmness at the catheter insertion site. Some bruising or slight swelling may be present at thetime of discharge. -Should arm or leg become cold, numb, white, or blue, contact the statistics manager immediately. -IF you should experience episodes of angina, e.g. chest discomfort, heaviness, tightness, pressureburning with or without radiation to the neck, jaw, arms or back- use 1 Nitrostat tablet under yourtongue every 5-10 minutes and up to three tablets. IF NO RELIEF, CALL 911 or GO TO THE NEAREST EMERGENCY ROOM. -Please notify our office if you have recurrent angina. -Cardiac Rehab Education Provided. Participation in the Cardiopulmonary Rehabilitation program is recommended. The attending statistics manager or a nurse clinician should provide you with specificinstructions regarding activity, diet, medications, and further follow up for you. Follow the medication instructions provided on your discharge. If the dosages and instructions on this sheet differ from the dosage and instructions on the bottle, follow the instructions on the bottle. [facility] is not responsible for incorrect prescription information provided by thepatient during their visit. Do not stop your medications without consulting your health care provider. Please take the list with you to your next doctor's appointment. Instructions: Coronary Angioplasty (DC), Coronary Stenting (DC), Angina (DC), Chest Pain (DC), DrugEluting Stents, Know your Meds Prescriptions: New atorvastatin [...] 09:06 Urine Culture - Pending Urine - Zapien Catheter Labs on day of discharge: 01/23/24 09:06: Urine Color Yellow, Urine Appearance Clear, Urine pH 5.5, Ur Specific [place] 1.022, Urine Protein Trace H, Urine Glucose (UA) Normal, Urine Ketones Negative, Urine Occult Blood 2+ H,Urine Nitrite Negative, Urine Bilirubin Negative, Urine Urobilinogen 2 H, Ur Leukocyte Esterase 4+ H, Urine RBC 20-49 H, Urine WBC 20-49 H, Urine WBC Clumps Rare H, Ur Squamous Epith CellsN/A, Urine Bacteria Rare, Hyaline Casts None, Urine Mucus Rare Documented By: Teo Al MD, [facility] 4 [id number] Signed By: <Electronically signed by MD [place] Al> 01/23/24 1552 [facility] Work Phone: Evaluation + Plan note No data available for this section [facility] evaluation + Plan note Future Appointments Appointment Date:10/04/2022 10:00:00 AM Scheduled Provider: Location:[facility] [place] Appointment Type:URO Nurse Visit [facility] Evaluation + Plan note Future Appointments Appointment Date:06/16/2023 10:00:00 AM Scheduled Provider: Location:[facility] Appointment Type:URO Nurse Visit Appointment Date:06/30/2023 01:30:00 PM Scheduled Provider:Katia SAMUELS MD [facility] Type:URO Office Visit Diagnostic Tests Pending * UroVysion Fish and Urine Cyto ([facility]) [facility] Future App[facility]ments Appointment Date:06/30/2023 01:30:00 PM Scheduled Provider:Katia SAMUELS MD [facility] App[facility] Type:URO Office Visit [facility] evaluation + Plan note Future Appointments Appointment Date:07/01/2023 08:30:00 AM Scheduled Provider: Location:[facility] Appointment Type:URO Nurse Visit [facility] evaluation + Plan note Future Appointments Appointment Date:09/09/2023 02:15:00 PM Scheduled Provider:Katia SAMUELS MD [facility] Appointment Type:URO Procedure 15 min [facility] Evaluation + Plan note Future Appointments Appointment Date:10/07/2023 02:45:00 PM Scheduled Provider:Katia SAMUELS MD [facility] Appointment Type:URO Procedure 15 min [facility] Evaluation + Plan note Future Appointments Appointment Date:10/31/2023 11:00:00 AM Scheduled Provider: Location:[facility] Appointment Type:URO Nurse Visit [facility] Evaluation + Plan note Future Appointments Appointment Date:10/31/2023 11:00:00 AM Scheduled Provider: [facility] Appointment Type:URO Nurse Visit Diagnostic Tests Pending * UroVysion Fish and Urine Cyto ([facility]) 10[facility]03/23 [facility] Future Appointments Appointment Date:11/04/2023 10:30:00 AM Scheduled Provider: Location:[facility] Appointment Type:URO Nurse Visit [facility] Evaluation + Plan note Future Appointments Appointment Date:12/02/2023 11:00:00 AM Scheduled Provider:TC Boles APRN, [place] X Location:[facility] Appointment Type:URO Office Visit [facility] evaluation + Plan note Future Appointments Appointment Date:01/20/2024 11:30:00 AM Scheduled Provider:TC Boles APRN, [place] Location:[facility] Appointment Type:URO Office Visit [facility] evaluation + Plan note Future Appointments Appointment Date:04/06/2024 11:00:00 AM Scheduled Provider:Katia SAMUELS MD Location:[facility] Appointment Type:URO Procedure 15 min [facility] evaluation + Plan note Future Appointments Appointment Date:05/06/2024 12:30:00 PM Scheduled Provider:Fabi Antonio Location:[facility] Appointment Type:URO Office Visit Appointment Date:10/05/2024 02:00:00 PM Scheduled Provider:Katia SAMUELS MD Location:[facility] Appointment Type:URO Procedure 15 min [facility] Evaluation + Plan note Future Appointments Appointment Date:05/06/2024 12:30:00 PM Scheduled Provider:Fabi Antonio Location:[facility] Appointment Type:URO Office Visit Appointment Date:10/05/2024 02:00:00 PM Scheduled Provider:Katia SAMUELS MD Location:[facility] Appointment Type:URO Procedure 15 min Diagnostic Tests Pending * UroVysion Fish and Urine Cyto ([facility]) 04/06/24 [facility] Evaluation + Plan note Future Appointments Appointment Date:06/29/2024 10:00:00 AM Scheduled Provider:HEATHER OMALLEY PA-C Location:[facility] Appointment Type:URO Office Visit Appointment Date:10/05/2024 02:00:00 PM Scheduled Provider:Katia SAMUELS MD Location:[facility] Appointment Type:URO Procedure 15 min [facility] Evaluation + Plan note Future Appointments Appointment Date:08/12/2024 11:20:00 AM Scheduled Provider:HEATHER OMALLEY PA-C Location:[facility] Appointment Type:URO Complex Office Visit Appointment Date:10/05/2024 02:00:00 PM Scheduled Provider:Katia SAMUELS MD Location:[facility] Appointment Type:URO Procedure 15 min [facility] evaluation + Plan note Future Appointments Appointment Date:11/16/2024 02:00:00 PM Scheduled Provider:Katia SAMUELS MD Location:[facility] Appointment Type:URO Procedure 15 min [facility] evaluation + Plan note Future Appointments Appointment Date:12/14/2024 11:00:00 AM Scheduled Provider:Eboni Anderson PA-C Location:[facility] Appointment Type:URO Office Visit [facility] evaluation + Plan note Future Appointments Appointment Date:12/14/2024 11:00:00 AM Scheduled Provider:Eboni Anderson PA-C Location:[facility] Appointment Type:URO Office Visit Diagnostic Tests Pending * UroVysion Fish and Urine Cyto ([facility]) 11/16/24 [facility] Evaluation + Plan note Future Appointments Appointment Date:01/12/2025 12:30:00 PM Scheduled Provider:Eboni Anderson PA-C Location:[facility] Appointment Type:URO Office Visit [facility] evaluation + Plan note Future Appointments Appointment Date:02/10/2025 01:50:00 PM Scheduled Provider:TC Boles APRN [place] X Location:[facility] Appointment Type:URO Office Visit [facility] evaluation + Plan note Future Appointments Appointment Date:03/10/2025 01:50:00 PM Scheduled Provider:TC Boles APRN Blanca X Location:[facility] Appointment Type:URO Office Visit [facility] evaluation + Plan note Future Appointments Appointment Date:04/07/2025 11:00:00 AM Scheduled Provider:TC Boles APRN Blanca Jomar Location:[facility] Appointment Type:URO Complex Office Visit [facility] evaluation note* Diagnosis Onset Date Resolution Status AAA (abdominal aortic aneurysm) acuteAcute kidney injuryacuteAcute metabolic encephalopathyacuteBilateral hydronephrosisacuteBladder massacuteDiarrheaacuteFolic acid deficiencyacute HyperkalemiaacuteMetabolic acidosisacutePre-operative cardiovascular examination, bradyarrhythmiaacute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acute SundowningacuteTIA (transient ischemic attack)acuteTobacco abuseacuteUTI (urinary tract infection)acuteVitamin B 12 deficiencyacute [facility] Work Phone: Evaluation noteNo assessment information available [facility] Work Phone: evaluwhnww noteNo InformationNort [employer] Other evaluation note* Diagnosis Onset Date Resolution Status Status post endovascular aneurysm repair (EVAR) acuteAbdominal aortic aneurysm without ruptureacuteAnemiaacuteChronic kidney disease, stage 3bacuteHyperlipidemiaacuteHypertensive nephropathyacuteIron deficiencyacuteObstructive nephropathyacute [facility] Work Phone: Evaluation note* Diagnosis Onset Date Resolution Status Abdominal aortic aneurysm without ruptur e acuteAnemiaacuteChronic kidney disease, stage 3bacuteHyperlipidemiaacute Hypertensive nephropathyacuteIron deficiencyacuteObstructive nephropathyacute [facility] Work Phone: Evaluation note* Diagnosis Onset Date Resolution Status Abdominal aortic aneurysm without ruptur e acuteAtrial fibrillation, new onsetacuteChronic kidney disease, stage 3bacute Chronic systolic heart failureacuteDeliriumacuteHyperlipidemiaacuteHypertension acuteHypertensive nephropathyacuteHypotensionacuteImpaired mobility and activities of daily livingacuteIron deficiencyacuteIschemic cardiomyopathyacute Sleep-wake cycle disorderacuteST elevation myocardial infarction (STEMI) of anterior wallacuteStatus post endovascular aneurysm repair (EVAR)acuteStented coronary arteryacute [facility] Work Phone: Evaluation note* Diagnosis Onset Date Resolution Status Abdominal aortic aneurysm without ruptur e acuteAtrial fibrillation, new onsetacuteChronic kidney disease, stage 3bacute Chronic systolic heart failureacuteHyperlipidemiaacuteHypertensive nephropathy acuteHypotensionacuteImpaired mobility and activities of daily livingacuteIron deficiencyacuteIschemic cardiomyopathyacuteSleep-wake cycle disorderacuteST elevation myocardial infarction (STEMI) of anterior wallacuteStatus post endovascular aneurysm repair (EVAR)acuteStented coronary arteryacuteDelirium resolvedAbdominal aortic aneurysm without ruptureacuteAnemiaacuteCHF (congestive heart failure)acuteChronic kidney disease, stage 3bacuteHyperlipidemiaacute Hypertensive nephropathyacuteIron deficiencyacuteObstructive nephropathyacute [facility] Work Phone: Evaluation note* Diagnosis Paroxysmal atrial fibrillation (Multi) Atrial fibrillation documented in this encounter [facility] Work Phone: Evaluation note* Diagnosis Pneumonia of left lower lobe due to infectious organism- Primary Simple chronic bronchitis (CMS/HCC) Simple chronic bronchitis documented in this encounter [facility] HealthcareEvaluation note* Diagnosis Onset Date Resolution Status Abdominal aortic aneurysm without ruptur e acuteAtrial fibrillation, new onsetacuteChronic kidney disease, stage 3bacute Chronic systolic heart failureacuteHyperlipidemiaacuteHypertensive nephropathy acuteHypotensionacuteImpaired mobility and activities of daily livingacuteIron deficiencyacuteIschemic cardiomyopathyacuteSleep-wake cycle disorderacuteST elevation myocardial infarction (STEMI) of anterior wallacuteStatus post endovascular aneurysm repair (EVAR)acuteStented coronary arteryacuteDelirium resolvedAbdominal aortic aneurysm without ruptureacuteAnemiaacuteCHF (congestive heart failure)acuteChronic kidney disease, stage 3bacuteHyperlipidemiaacute Hypertensive nephropathyacuteIron deficiencyacuteObstructive nephropathyacute Chest congestionnoneactive [facility] Work Phone: Evaluation note* Diagnosis Onset Date Resolution Status Abdominal aortic aneurysm without ruptur e acuteAtrial fibrillation, new onsetacuteChronic kidney disease, stage 3bacute Chronic systolic heart failureacuteHyperlipidemiaacuteHypertensive nephropathy acuteHypotensionacuteImpaired mobility and activities of daily livingacuteIron deficiencyacuteIschemic cardiomyopathyacuteSleep-wake cycle disorderacuteST elevation myocardial infarction (STEMI) of anterior wallacuteStatus post endovascular aneurysm repair (EVAR)acuteStented coronary arteryacuteDelirium resolvedAbdominal aortic aneurysm without ruptureacuteAnemiaacuteCHF (congestive heart failure)acuteChronic kidney disease, stage 3bacuteHyperlipidemiaacute Hypertensive nephropathyacuteIron deficiencyacuteObstructive nephropathyacute Chest congestionnoneactiveRight lower lobe [facility]onianon[facility] Work Phone: Evaluation note* Diagnosis Pneumonia of right lower lobe due to infectious organism documented in this encounter [facility] HealthcareEvaluation note* Diagnosis 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- Primary Paroxysmal atrial [...] health QT prolongation documented in this encounter [facility] Work Phone: Evaluation note* Diagnosis Simple chronic bronchitis (CMS/HCC) Simple chronic bronchitis documented in this encounter [facility] note* Diagnosis Paroxysmal atrial fibrillation (Multi) Atrial fibrillation High risk medication use 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 S/P PTCA (percutaneous [...] hazards to health documented in this encounter [facility] Work Phone: Evaluation note* Diagnosis Essential [...] to health Overweight documented in this encounter [facility] HealthcareEvaluation note* Diagnosis Encounter for Medicare annual wellness exam- Primary Advance directive discussed with patient Encounter for screening for other disorder Screening for alcohol problem Screening for alcoholism Former smoker Personal history of tobacco use, presenting hazards to health Overweight documented in this encounter [facility] HealthcareEvaluation note* Diagnosis Cardiomyopathy, ischemic- Primary Other specified forms of chronic ischemic heart disease 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 Paroxysmal atrial fibrillation (Multi) Atrial fibrillation High risk medication use S/P PTCA (percutaneous transluminal coronary angioplasty) Postsurgical percutaneous transluminal coronary angioplasty status ST elevation myocardial infarction (STEMI), unspecified artery (Multi) Infrarenal abdominal aortic aneurysm (AAA) without rupture (CMS-HCC) Essential hypertension Unspecified essential hypertension Dyslipidemia Other and unspecified hyperlipidemia Stage 3a chronic kidney disease (Multi) Transient cerebral ischemia, unspecified type Hematuria, unspecified type Hyperthyroidism Thyrotoxicosis without mention of goiter or other cause, without mention of thyrotoxic crisis or storm BMI 26.0-26.9,adult Former smoker Personal history of tobacco use, presenting hazards to health documented in this encounter [facility] Work Phone: Evaluation note* Diagnosis ST elevation myocardial infarction (STEMI), unspecified artery (Multi) Cardiomyopathy, ischemic Other specified forms of chronic ischemic heart disease 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 S/P PTCA (percutaneous transluminal coronary angioplasty) Postsurgical percutaneous transluminal coronary angioplasty status documented in this encounter [facility] Work Phone: Evaluation note* Diagnosis Onset Date Resolution Status Admit Date [facility]dominal aortic [facility]ur [facility]:25amAnemiaacute[facility] 2024 10:25amCHF (congestive heart failure)[facility] 2024 10:25amChronic kidney disease, stage 3bacute [facility] 2024 10:25amHyperlipidemiaacute[facility] 2024 10:25amHypertensive nephropathyacute[facility] 2024 10:25amIron deficiencyacute[facility] 2024 10:25amObstructive nephropathyDuke Health 2024 10:25am [facility] Work Phone: Evaluation note* Diagnosis Recurrent UTI- Primary Urinary tract infection, site not specified Need for prophylaxis against urinary tract infection documented in this encounter [facility] HealthcareEvaluation note* Diagnosis Cardiomyopathy, ischemic Other specified forms of chronic ischemic heart disease 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 S/P PTCA (percutaneous [...] health BMI 26.0-26.9,adult documented in this encounter [facility] Work Phone: Evaluation note* Diagnosis 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 disturbance, psychotic disturbance, mood disturbance, or anxiety (CMS/HCC) Hallucinations Need for prophylaxis against urinary tract infection Indwelling urinary catheter present Former smoker Personal history of tobacco use, presenting hazards to health Polypharmacy Issue of repeat prescriptions Overweight documented in this encounter [facility] HealthcareEvaluation note* Diagnosis Community acquired pneumonia [...] Acute metabolic encephalopathy documented in this encounter [facility] HealthEvaluation note* Diagnosis Cardiomyopathy, ischemic- Primary Other [...] Unspecified cardiac dysrhythmia documented in this encounter [facility] Work Phone: Evaluation note* Diagnosis Peripheral vascular disease (CMS/HCC)- Primary Unspecified peripheral vascular disease Presence of stent in artery Encounter for examination following treatment at hospital Pneumonia of left lower lobe due to infectious organism Lower extremity edema Edema Delirium due to another medical condition documented in this encounter [facility] HealthcareEvaluation note* Diagnosis Pneumonia of left lower lobe due to infectious organism Encounter for examination following treatment at hospital Lower extremity edema Edema Delirium due to another medical condition documented in this encounter [facility] HealthcareEvaluation note* Diagnosis Venous insufficiency of both lower extremities- Primary Venous stasis dermatitis of right lower extremity 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 disturbance, psychotic disturbance, mood disturbance, or anxiety ([facility]) documented in this encounter [facility] HealthcareEvaluation note* Diagnosis Onset Date Resolution Status Admit Date Abdominal aortic aneurysm without ruptur e acuteOctober 2024 2:22pmAnemiaacuteOctober 2024 2:22pmCHF (congestive heart failure)acuteOctober 2024 2:22pmChronic kidney disease, stage 3bacuteOctober 2024 2:22pmHyperlipidemiaacuteOctober 2024 2:22pmHypertensive nephropathyacuteOctober 2024 2:22pmHypokalemiaacute March 09, 2025 2:22pmIron deficiencyacuteOctober 2024 2:22pm Obstructive nephropathyacuteOct2024 2:22pm [facility] Work Phone: History and physical note Author Willy Lambert [facility] January 14, 2024 8:46amNote Date/TimeAugust 2023 8:[place] [address] Gastroenterology H&P Signed Patient: Alex Anderson MR#: [id number] : 1945 Acct:[id number] Age/Sex: 78 / M Adm Date: 4 Loc: Room: Type: [facility] Attending Dr: Willy Lambert MD Copies to: MD Stanley Valenzuela MD~ Date of Service: 01/14/2024 HISTORY & PHYSICAL: Patient's history with special attention to the cardiovascular, pulmonary systems and the current problem was reviewed with the patient immediately prior to the procedure. Present medications and doses reviewed in the EMR. Allergies and pertinent laboratory tests were also re viewedat this time in the EMR. The physical [...] signed by Willy Lambert MD> 01/14/24 0846 [facility] Work Phone: Hisadps general Narrative - Reported* Type Description Date Medical History ACUTE KIDNEY INJURY Medical HistoryOBSTRUCTIVE UROPATHYMedical HistoryPRE-OPERATIVE CARDIOVASCULAR EXAMINATION, BRADYARRHYTHMIAMedical HistoryBILATERAL HYDRONEPHROSISMedical HistoryBLADDER MASSMedical HistoryAAA (ABDOMINAL AORTIC ANEURYSM)Medical History TOBACCO ABUSEMedical HistoryDEMENTIAMedical HistorySUNDOWNINGMedical History VITAMIN B 12 DEFICIENCYMedical HistoryFOLIC ACID DEFICIENCYSurgical History KIDNEY STONE REMOVEDHospitalization HistoryACUTE KIDNEY INJURY, 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, BLADDER MASS05/16/22 [facility] Other Hismqnt general Narrative - Reported* Type Description Date Medical History ACUTE KIDNEY INJURY Medical HistoryOBSTRUCTIVE UROPATHYMedical HistoryPRE-OPERATIVE CARDIOVASCULAR EXAMINATION, BRADYARRHYTHMIAMedical HistoryBILATERAL HYDRONEPHROSISMedical HistoryBLADDER MASSMedical HistoryAAA (ABDOMINAL AORTIC ANEURYSM)Medical History TOBACCO ABUSEMedical HistoryDEMENTIAMedical HistorySUNDOWNINGMedical History VITAMIN B 12 DEFICIENCYMedical HistoryFOLIC ACID DEFICIENCYSurgical History KIDNEY STONE REMOVEDSurgical HistoryEVARHospitalization HistoryACUTE KIDNEY INJURY, 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, BLADDER MASS05/16/22 [facility] Other Histtvf general Narrative - Reported* Type Description Date Medical History ACUTE KIDNEY INJURY Medical HistoryOBSTRUCTIVE UROPATHYMedical HistoryPRE-OPERATIVE CARDIOVASCULAR EXAMINATION, BRADYARRHYTHMIAMedical HistoryBILATERAL HYDRONEPHROSISMedical HistoryBLADDER MASSMedical HistoryAAA (ABDOMINAL AORTIC ANEURYSM)Medical History TOBACCO ABUSEMedical HistoryDEMENTIAMedical HistorySUNDOWNINGMedical History VITAMIN B 12 DEFICIENCYMedical HistoryFOLIC ACID DEFICIENCYSurgical History KIDNEY STONE REMOVEDSurgical HistoryEVARSurgical HistoryTURBT, CYSTOSCOPY 09/12/2022Surgical HistoryCYSTOSCOPY07/30/2022Surgical HistorySTENT OVER AORTIC ANEURYSM06/2022Hospitalization HistoryACUTE KIDNEY INJURY, 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, BLADDER MASS05/16/22Hospitalization HistorySEE ABOVE [facility] Other [facility] Discharge instructions No data available for this section 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 S/P PTCA (percutaneous transluminal coronary angioplasty) ST elevation myocardial infarction (STEMI), unspecified artery (Multi) Teo Al MD [address] [place] [address], [address] [address] Referral IDStatusReasonStart DateExpiration DateVisits RequestedVisits [id number] Specialty Services Required / Scheduling Instructions [place] * PFT (Routine) - AuthorizedSpecialtyDiagnoses / ProceduresReferred By Contact Referred To Contact Diagnoses Paroxysmal atrial fibrillation (Multi) High risk medication use Procedures Complete Pulmonary Function Test (Spirometry/DLCO/Lung Volumes) Teo Al MD [address] [place] [address] 2, [address] [address] Referral IDStatusReasonStart DateExpiration DateVisits RequestedVisits [id number]/17/20249/17/202511 * Imaging (Routine) - AuthorizedSpecialtyDiagnoses / ProceduresReferred By ContactReferred To ContactRadiology Diagnoses Paroxysmal atrial fibrillation (Multi) High risk medication use Procedures XR chest 2 views Teo Al MD [address] [place] [address] Referral IDStatusReasonStart DateExpiration DateVisits RequestedVisits [id number] Perform Procedure * Consultation (Routine) - AuthorizedSpecialtyDiagnoses / ProceduresReferred By ContactReferred To ContactCardiology Diagnoses Paroxysmal atrial fibrillation (Multi) Procedures Follow Up In Cardiology Teo Al MD [address] [place] [address] Teo Al MD [address] [place] [address] Referral IDStatusReasonStart DateExpiration DateVisits RequestedVisits [id number]/17/20249/17/202511 * Cardiovascular (Routine) - AuthorizedSpecialtyDiagnoses / ProceduresReferred By ContactReferred To Contact Diagnoses Paroxysmal atrial fibrillation (Multi) Procedures ECG 12 Lead Teo Al MD [address] [place] [address] Referral IDStatusReasonStart DateExpiration DateVisits RequestedVisits [id number]/17/20249/17/202511 * Cardiovascular (Routine) - AuthorizedSpecialtyDiagnoses / ProceduresReferred By ContactReferred To Contact Diagnoses Paroxysmal atrial fibrillation (Multi) Procedures ECG 12 Lead Teo Al MD [address] [facility] [address] [place] [address] Referral IDStatusKeylaasonBeech Bottom DateExpiration DateVisits RequestedVisits [id number]/17/20249/17/202511 [facility] Work Phone: Reason for referral (narrative)No reason for referral information [facility]Luther[facility] Work Phone: Reason for visit Narrative* CV Imaging (Routine) - AuthorizedSpecialtyDiagnoses / ProceduresReferred By ContactReferred To ContactCardiology Diagnoses ST elevation myocardial infarction (STEMI), unspecified artery (Multi) Cardiomyopathy, ischemic 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 S/P PTCA (percutaneous transluminal coronary angioplasty) Procedures Transthoracic Echo Limited IL ECHO TRANSTHORC R-T 2D W/WO M-MODE REC F-UP/LMTD IL DOPPLER ECHO COLOR FLOW VELOCITY MAPPING IL DOPPLER ECHO PULSE WAVE W/SPECTRAL F-UP/LMTD STD Teo Al MD [address] [facility] [address] [place] [address] Phone: tel: fax: Referral IDStatusReasonStripon DateExpiration DateVisits RequestedVisits [id number] Perform Procedure [facility] Work Phone: Summary Purpose Family History No Family History Records FoundUnknown Family Member Name Dates Details Family history of benign doc plasm of brain: Father(V19.8, Z84.89) Status:ActiveFamily history of bowel obstruction: Mother(V18.59, Z83.79) Status:Active Relationship Condition Age at Onset Recorded Date/T deandra father Neoplasm of brain Unknown Relationship Condition Age at Onset Recorded Date/T deandra father Neoplasm of brain Unknown Not SpecifiedRheumatic feverUnknownbrotherMalignant neoplasm of urinary bladder Unknown Unknown Family Member Name Dates Details Family history of benign doc plasm of brain: Father(V19.8, Z84.89) Status:ActiveFamily history of bowel obstruction: Mother(V18.59, Z83.79) Status:Active Relationship Condition Age at Onset Recorded Date/T deandra father Neoplasm of brain Unknown Not SpecifiedRheumatic feverUnknownbrotherMalignant neoplasm of urinary bladder UnknownfatherDeceasedUnknownNot SpecifiedDeceasedUnknownnatural sonFamily history of mental disorderUnknown Relationship Condition Age at Onset Recorded Date/T deandra father Neoplasm of brain Unknown motherRheumatic feverUnknownbrotherMalignant neoplasm of urinary bladderUnknown fatherDeceasedUnknownmotherDeceasedUnknownsonFamily history of mental disorder Unknown Relationship Condition Age at Onset Recorded Date/T deandra father Neoplasm of brain Unknown DeceasedUnknownmotherRheumatic feverUnknownbrotherMalignant neoplasm of urinary bladderUnknownsonFamily history of mental disorderUnknown Advance Directives No Advanced Directives Records Found Advance Directive Response Recorded Date/ Time Advance Directives No April 10:36am Advance Directive Response Recorded Date/ Time Advance Directives No April 11:36am Date ActivatedDate InactivatedComments10/04/2024 3:24 PMDate ActivatedDate InactivatedComments10/02/2024 10:49 AM10/04/2024 3:24 PMNameRelationshipHealthcare Agent RelationshipCommunicationEllen EdmundoiesSpousePrimary Decision Maker* Antonio AndersonChildSecondary Decision Maker* Lindy DaviesChildSecondary Decision Maker* TypeDate RecordedPatient RepresentativeExplanationACP-Advance Directive10/06/2024 4:23 PMACP-Do Not Resuscitate10/06/2024 4:22 PMDate ActivatedDate Inactivated Comments10/04/2024 3:24 PM10/05/2024 4:27 PMDate ActivatedDate InactivatedComments 10/02/2024 10:49 AM10/04/2024 3:24 PMNameRelationshipHealthcare Agent Relationship John WyattcoySpousePrimary Decision Maker* Antonio AndersonChildSecondary Decision Maker* Lindy AndersonChildSecondary Decision Maker* Chief Complaint and Reason for Visit Chief [...] August 11, 2024 10:25am Chief Complaint talon I71.4Reason for VisitAAA (abdominal aortic aneurysm) Acute kidney injury Acute metabolic encephalopathy Bilateral hydronephrosis Bladder mass Diarrhea Folic acid deficiency Hyperkalemia Metabolic acidosis Pre-operative cardiovascular examination, bradyarrhythmia 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 Sundowning TIA (transient ischemic attack) Tobacco abuse UTI (urinary tract infection) Vitamin B 12 deficiency Chief Complaint talon I71.4 AAA AAAReason for VisitAAA (abdominal aortic aneurysm) Acute kidney injury Acute metabolic encephalopathy Bilateral hydronephrosis Bladder mass Diarrhea Folic acid deficiency Hyperkalemia Metabolic acidosis Pre-operative cardiovascular examination, bradyarrhythmia 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 Sundowning TIA (transient ischemic attack) Tobacco abuse UTI (urinary tract infection) Vitamin B 12 deficiency Chief Complaint talon I71.4 AAA AAA n32.89 n28.9 n13.4 n17.9Reason for VisitAAA (abdominal aortic aneurysm) Acute kidney injury Acute metabolic encephalopathy Bilateral hydronephrosis Bladder mass Diarrhea Folic acid deficiency Hyperkalemia Metabolic acidosis Pre-operative cardiovascular examination, bradyarrhythmia 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 Sundowning TIA (transient ischemic attack) Tobacco abuse UTI (urinary tract infection) Vitamin B 12 deficiency Chief Complaint talon I71.4 AAA AAA n32.89 n28.9 n13.4 n17.9 I71.4Reason for VisitAAA (abdominal aortic aneurysm) Acute kidney injury Acute metabolic encephalopathy [...] Y[place] F/U AAA[place] [facility] Complaint I71.4 1 YR F/U AAA; [place] [facility] RENAL 6 month f/uReason for VisitStatus post endovascular aneurysm repair (EVAR) Abdominal aortic aneurysm without rupture Anemia Chronic kidney disease, stage 3b Hyperlipidemia Hypertensive nephropathy Iron deficiency Obstructive nephropathy Chief Complaint RENAL 6 month f/u e78.5Reason for VisitAbdominal aortic aneurysm without rupture Anemia Chronic kidney disease, stage 3b Hyperlipidemia Hypertensive nephropathy Iron deficiency Obstructive nephropathy Chief Complaint RENAL 6 month f/u e78.5 Positive cologuard Positive cologuardReason for VisitAbdominal aortic aneurysm without rupture Anemia Chronic kidney disease, stage 3b Hyperlipidemia Hypertensive nephropathy Iron deficiency Obstructive nephropathy Chief Complaint e78.5 Positive cologuard Positive cologuard stemi. stemi. stemi. stemi.Reason for VisitAbdominal aortic aneurysm without rupture Atrial fibrillation, new onset Chronic [...] stemi. stemi. stemi. stemi. RENAL 4 MONTH F/UReason for VisitAbdominal aortic aneurysm without rupture Atrial fibrillation, new onset Chronic [...] RENAL 4 MONTH F/U cough, congestion(exposed to strep)Reason for VisitAbdominal aortic aneurysm without rupture Atrial fibrillation, new onset Chronic [...] RENAL 4 MONTH F/U cough, congestion(exposed to strep)Reason for VisitAbdominal aortic aneurysm without rupture Atrial fibrillation, new onset Chronic [...] August 11, 2024 10: 25am Hypertensive nephropathy March 19th, 202 5 10:25am Iron deficiency August 11, 2024 10: [...] nephropathy November 03, 2024 3:51pm Chief Complaint Admit Date renal 4 month f/u March 09, 2025 2 :22pm Reason for Visit Admit Date Abdominal aortic aneurysm without ruptur e March 09, 2025 2:22pm Anemia March 09, 2025 2 :22pm CHF (congestive heart failure) February 232024 2:22pm Chronic kidney disease, stage 3b March 09, 2025 2:22pm Hyperlipidemia March 09, 2025 2 :22pm Hypertensive nephropathy March 09, 025 2:22pm Hypokalemia March 09, 2025 2 :22pm Iron deficiency March 09, 2025 2 :22pm Obstructive nephropathy March 09 2:22pm Chief Complaint * ALEX ANDERSON is being [...] section and content) DATE CREATED AUTHOR 05/12/2021 [employer] [place] [employer] DATE CREATED AUTHOR AUTHOR'S ORGANIZ ATION 09/23/2022 [facility] DATE CREATED AUTHOR AUTHOR'S ORGANIZ ATION 01/23/2023 [facility] DATE CREATED AUTHOR AUTHOR'S ORGANIZ ATION 01/23/2023 [employer] DATE CREATED AUTHOR AUTHOR'S ORGANIZ ATION 08/03/2024 [facility] DATE CREATED AUTHOR AUTHOR'S ORGANIZ ATION 08/14/2024 [facility] DATE CREATED AUTHOR AUTHOR'S ORGANIZ ATION 10/07/2024 [facility] DATE CREATED AUTHOR AUTHOR'S ORGANIZ ATION 10/08/2024 [facility] DATE CREATED AUTHOR AUTHOR'S ORGANIZ ATION 10/12/2024 [facility] DATE CREATED AUTHOR AUTHOR'S ORGANIZ ATION 10/22/2024 [facility] DATE CREATED AUTHOR AUTHOR'S ORGANIZ ATION 11/10/2024 [facility] DATE CREATED AUTHOR AUTHOR'S ORGANIZ ATION 11/12/2024 [facility] DATE CREATED AUTHOR AUTHOR'S ORGANIZ ATION 11/17/2024 [facility] DATE CREATED AUTHOR AUTHOR'S ORGANIZ ATION 12/15/2024 [facility] DATE CREATED AUTHOR AUTHOR'S ORGANIZ ATION 03/11/2025 [facility] Patient Care team informatio n (unrecognized section and content) Team Status: Active Member Role Status Dates Stanley Emerson MD Primary Care Provider Active Team Status: Active Member Role Status Dates Stanley Emerson MD Primary Care Provider Active Start: February 28, 2025 Arabella Bills ProviderActiveStart: February 28, 2025 Team Status: Inactive Member Role Status Dates Stanley Emerson MD Primary Care Provider Active Start: March 09, 2025 End: March 09Arabella Lew ProviderActiveStart: March 09, 2025 End: March 09, 2025 Team Status: Inactive Member Role Status Dates Stanley Emerson MD Primary Care Provider Active Start: August 11, 2024 End: August 11reggie Griffin MDAttending ProviderActiveStart: August 11, 2024 End: August 11, 2024 Team Status: Inactive Member Role Status Dates Stanley Emerson MD Primary Care Provider Active Start: September 23, 2024 End: September 23, 2024Klaus Llanosending ProviderActiveStart: September 23, 2024 End: September 23, 2024 [...] Start: October 11, 2024 End: October 11, 2024Margarito Valentine MDAttending ProviderActiveStart: October 11, 2024 End: October 11, 2024 Team Status: Active Member Role Status Dates Stanley Emerson MD Primary Care Provider Active Start: October 11, 2024 Margarito Valentine MDAttending Provider, Other ProviderActiveStart: October 11, 2024 Team Status: Active Member Role Status Dates Stanley Emerson MD Primary Care Provider Active Start: October 27, 2024 Klaus Billsending ProviderActiveStart: October 27, 2024 Team Status: Inactive Member Role Status Dates Stanley Emerson MD Primary Care Provider Active Start: November 03, 2024 End: November 03Klaus Lewending ProviderActiveStart: November 03, 2024 End: November 03, 2024 Team Status: Active Member Role Status Dates Stanley Emerson MD Primary Care Provider Active Start: August 02, 2024 Arabella Bills ProviderActiveStart: August 02, 2024 Team Status: Inactive Member Role Status Pooja Emerson MD Primary Care Provider Active Start: December 26, 2023 End: December 26, 2023Teo Al MDAttending ProviderActiveStart: December 26, 2023 End: December 26, 2023 Team Status: Inactive Member Role Status Dates Stanley Emerson MD Primary Care Provider Active Start: January 14, 2024 End: January 13Klaus Clarkeending ProviderActiveStart: January 14, 2024 End: January 14, 2024 Team Status: Active Member Role Status Dates Stanley Emerson MD Primary Care Provider Active Start: January 14, 2024 Klaus Valenzuelaending Provider, Other ProviderActiveStart: January 14, 2024 Team Status: Inactive Member Role Status Dates Stanley Emerson MD Primary Care Provider Active Start: January 16, 2024 End: January 23, 2024W Zaria Starksit Provider, Attending Provider ActiveStart: January 16, 2024 End: January 23, 2024Myesha Feliz MDOther ProviderActiveStart: January 16, 2024 End: January 23, 2024Rogelio Rai MDOther ProviderActiveStart: January 16, 2024 End: January 23, 2024Elensergo Truong , APRNOther ProviderActiveStart: January 16, 2024 End: January 22enedict Romina Yeboah Jr DOOther ProviderActiveStart: January 16, 2024 End: January 22monse Hoyt MDOther ProviderActiveStart: January 16, 2024 End: January 22lexnadine Randle RNOther ProviderActiveStart: January 16, 2024 End: January 22lionel Alvarez RNOther ProviderActiveStart: January 16, 2024 End: January 23, 2024Micmaxine Delgado RNOther ProviderActiveStart: January 16, 2024 End: January 23, 2024Momanny Rogel RNOther ProviderActiveStart: January 16, 2024 End: January 23, 2024Daisha Li RNOther ProviderActiveStart: January 16, 2024 End: January 22rosalba Berrios MDOther ProviderActiveStart: January 16, 2024 End: January 22roberto Deluca DOOther ProviderActiveStart: January 16, 2024 End: January 23, 2024Musdeb Martinez MDOther ProviderActiveStart: January 16, 2024 End: January 23, 2024Chester Valdes ProviderActiveStart: January 16, 2024 End: January 22ndBe Quinn ProviderActiveStart: January 16, 2024 End: January 22shea Zambrano MDOther ProviderActiveStart: January 16, 2024 End: January 23, 2024Be Joe ProviderActiveStart: January 16, 2024 End: January 23, 2024Roseann Velasco APRNOther ProviderActiveStart: January 16, 2024 End: January 23, 2024Jagjit Swenson MDOther ProviderActiveStart: January 16, 2024 End: January 22assBe Mckeon ProviderActiveStart: January 16, 2024 End: January 23, 2024Taz Barnes MDOther ProviderActiveStart: January 16, 2024 End: January 23, 2024Sakate Tran MDOther ProviderActiveStart: January 16, 2024 End: January 23, 2024MicChester Metzger ProviderActiveStart: January 16, 2024 End: January 23, 2024Be Perez ProviderActiveStart: January 16, 2024 End: January 23, 2024Earromina Jaffe MDOther ProviderActiveStart: January 16, 2024 End: January 22ayah Hernandez NP-COther ProviderActiveStart: January 16, 2024 End: January 22dsusi Sandra , APRNOther ProviderActiveStart: January 16, 2024 End: January 23, 2024Rob Almazan MDOther ProviderActiveStart: January 16, 2024 End: January 23, 2024Be Zafar ProviderActiveStart: January 16, 2024 End: January 22Be Avila ProviderActiveStart: January 16, 2024 End: January 23, 2024Basilio Tam MDOther ProviderActiveStart: January 16, 2024 End: January 22jennifer Garcia MDOther ProviderActiveStart: January 16, 2024 End: January 23, 2024Lydia Rene , DOOther ProviderActiveStart: January 16, 2024 End: January 23, 2024Lucas Dumas , DOOther ProviderActiveStart: January 16, 2024 End: January 23, 2024Cortney Watkins , APRNOther ProviderActiveStart: January 16, 2024 End: January 23, 2024Jakob Lomax , DOOther ProviderActiveStart: January 16, 2024 End: January 23, 2024Nick Ken MDOther ProviderActiveStart: January 16, 2024 End: January 22aukaleigh Beard APRNOther ProviderActiveStart: January 16, 2024 End: January 22elizabeth Man , APRNOther ProviderActiveStart: January 16, 2024 End: January 22anders Mayo MDOther ProviderActiveStart: January 16, 2024 End: January 22loy Durham MDOther ProviderActiveStart: January 16, 2024 End: January 23, 2024Tico Whitehead , DOOther ProviderActiveStart: January 16, 2024 End: January 23, 2024Alonso Maher , DOOther ProviderActiveStart: January 16, 2024 End: January 23, 2024Humberto Bonds MDOther ProviderActiveStart: January 16, 2024 End: January 22raul Smith MDOther ProviderActiveStart: January 16, 2024 End: January 22erick Najera APRNOther ProviderActiveStart: January 16, 2024 End: January 23, 2024Dana Haddad MDOther ProviderActiveStart: January 16, 2024 End: January 22lorenzo Silverman MDOther ProviderActiveStart: January 16, 2024 End: January 23, 2024Monisha Moore RNOther ProviderActiveStart: January 16, 2024 End: January 23, 2024 Team Status: Active Member Role Status Dates Stanley Emerson MD Primary Care Provider Active Start: January 16, 2024 Nas Pruett , DOOther ProviderActiveStart: January 16, 2024 Dora Prado APRN ACNP-BCOther ProviderActiveStart: January 16, 2024 Isaac Edwards MDOther ProviderActiveStart: January 16, 2024 Ed Velasquez MDOther ProviderActiveStart: January 16, 2024 Bob Hackett MDOther ProviderActiveStart: January 16, 2024 Dean Perry , DOOther ProviderActiveStart: January 16, 2024 Aayush Gallo , DOOther ProviderActiveStart: January 16, 2024 Fermin Shukla MDOther ProviderActiveStart: January 16, 2024 Kashmir Gonzales MDOther ProviderActiveStart: January 16, 2024 Justina Lara MDAttending Provider, Other ProviderActiveStart: January 16, 2024 Shania Armijo MDOther ProviderActiveStart: January 16, 2024 Team Status: Active Member Role Status Dates Stanley Emerson MD Primary Care Provider Active Start: January 23, 2024 Nas Pruett , DOAdmit Provider, Other ProviderActiveStart: January 23, 2024 Myesha Feliz MDOther ProviderActiveStart: January 23, 2024 Rogelio Rai MDOther ProviderActiveStart: January 23, 2024 Heaven Truong APRNOther ProviderActiveStart: January 23, 2024 Mckay Yeboah Jr, DOOther ProviderActiveStart: January 23, 2024 Ryley Hoyt MDOther ProviderActiveStart: January 23, 2024 Ledy Randle , ROCIOOther ProviderActiveStart: January 23, 2024 Thu Alvarez , ROCIOOther ProviderActiveStart: January 23, 2024 Jen Delgado , ROCIOOther ProviderActiveStart: January 23, 2024 Jennifer Rogel , ROCIOOther ProviderActiveStart: January 23, 2024 Daisha Li , ROCIOOther ProviderActiveStart: January 23, 2024 Radha Berrios MDOther ProviderActiveStart: January 23, 2024 Khanh Deluca , DOOther ProviderActiveStart: January 23, 2024 Ronald Martinez MDOther ProviderActiveStart: January 23, 2024 [address] , DOOther ProviderActiveStart: January 23, 2024 Jerrell Gonsales MDOther ProviderActiveStart: January 23, 2024 Mary Ellen Zambrano MDOther ProviderActiveStart: January 23, 2024 Anand Mckenzie MDOther ProviderActiveStart: January 23, 2024 Roseann Velasco , APRNOther ProviderActiveStart: January 23, 2024 Jagjit Swenson MDOther ProviderActiveStart: January 23, 2024 Pawel Sanford MDOther ProviderActiveStart: January 23, 2024 Taz Barnes MDOther ProviderActiveStart: January 23, 2024 Rupa Tran MDOther ProviderActiveStart: January 23, 2024 Roldan Masterson , DOOther ProviderActiveStart: January 23, 2024 Kyle Ivy MDOther ProviderActiveStart: January 23, 2024 Jad Jaffe MDOther ProviderActiveStart: January 23, 2024 Vidya Hernandez , PARKING METER ATTENDANT-COther ProviderActiveStart: January 23, 2024 Valdo Sandra , APRNOther ProviderActiveStart: January 23, 2024 Rob Almazan MDOther ProviderActiveStart: January 23, 2024 Danielito Claros MDOther ProviderActiveStart: January 23, 2024 Seb Bonds MDOther ProviderActiveStart: January 23, 2024 Basilio Tam MDOther ProviderActiveStart: January 23, 2024 Reji Garcia MDOther ProviderActiveStart: January 23, 2024 Lydia Rene , DOOther ProviderActiveStart: January 23, 2024 Lucas Dumas , DOOther ProviderActiveStart: January 23, 2024 Cortney Watkins , APRNOther ProviderActiveStart: January 23, 2024 Jakob Lomax , DOOther ProviderActiveStart: January 23, 2024 Nick Ken MDOther ProviderActiveStart: January 23, 2024 Yaz Beard , APRNOther ProviderActiveStart: January 23, 2024 Venus Man , APRNOther ProviderActiveStart: January 23, 2024 Joaquim Mayo MDOther ProviderActiveStart: January 23, 2024 Shane Durham MDOther ProviderActiveStart: January 23, 2024 Tico Whitehead , DOOther ProviderActiveStart: January 23, 2024 Alonso Maher , DOOther ProviderActiveStart: January 23, 2024 Humberto Bonds MDOther ProviderActiveStart: January 23, 2024 Chi Smith MDOther ProviderActiveStart: January 23, 2024 Chen Najera , APRNOther ProviderActiveStart: January 23, 2024 Dana Haddad MDOther ProviderActiveStart: January 23, 2024 Emmanuel Silverman MDOther ProviderActiveStart: January 23, 2024 Monisha Moore , ROCIOOther ProviderActiveStart: January 23, 2024 Isaac Edwards , MDAttending ProviderActiveStart: January 23, 2024 Team Status: Active Member Role Status Dates Stanley Emerson MD Primary Care Provider Active Start: January 23, 2024 Nas Pruett , DOAdmit Provider, Other ProviderActiveStart: January 23, 2024 Myesha Feliz MDOther ProviderActiveStart: January 23, 2024 Rogelio Rai , MDAttending Provider, Other ProviderActiveStart: January 23, 2024 Heaven Truong , APRNOther ProviderActiveStart: January 23, 2024 Mckay Yeboah Jr, DOOther ProviderActiveStart: January 23, 2024 Ryley Hoyt MDOther ProviderActiveStart: January 23, 2024 Ledy Randle , ROCIOOther ProviderActiveStart: January 23, 2024 Thu Alvarez , ROCIOOther ProviderActiveStart: January 23, 2024 Jen Delgado , ROCIOOther ProviderActiveStart: January 23, 2024 Jennifer Rogel RNOther ProviderActiveStart: January 23, 2024 Daisha Li RNOther ProviderActiveStart: January 23, 2024 Radha Berrios MDOther ProviderActiveStart: January 23, 2024 Khanh Deluca , DOOther ProviderActiveStart: January 23, 2024 Ronald Martinez MDOther ProviderActiveStart: January 23, 2024 [address] , DOOther ProviderActiveStart: January 23, 2024 Jerrell Gonsales MDOther ProviderActiveStart: January 23, 2024 Mary Ellen Zambrano MDOther ProviderActiveStart: January 23, 2024 Anand Mckenzie MDOther ProviderActiveStart: January 23, 2024 Roseann Velasco , APRNOther ProviderActiveStart: January 23, 2024 Jagjit Swenson MDOther ProviderActiveStart: January 23, 2024 Pawel Sanford MDOther ProviderActiveStart: January 23, 2024 Taz Barnes MDOther ProviderActiveStart: January 23, 2024 Rupa Tran MDOther ProviderActiveStart: January 23, 2024 Roldan Masterson DOOther ProviderActiveStart: January 23, 2024 Kyle Ivy MDOther ProviderActiveStart: January 23, 2024 Jad Jaffe MDOther ProviderActiveStart: January 23, 2024 Vidya Hernandez , PARKING METER ATTENDANT-COther ProviderActiveStart: January 23, 2024 Valdo Sandra , APRNOther ProviderActiveStart: January 23, 2024 Rob Almazan MDOther ProviderActiveStart: January 23, 2024 Danielito Claros MDOther ProviderActiveStart: January 23, 2024 Seb Bonds MDOther ProviderActiveStart: January 23, 2024 Basilio Tam MDOther ProviderActiveStart: January 23, 2024 Reji Garcia MDOther ProviderActiveStart: January 23, 2024 Lydia Rene DOOther ProviderActiveStart: January 23, 2024 Lucas Dumas , DOOther ProviderActiveStart: January 23, 2024 Cortney Watkins , APRNOther ProviderActiveStart: January 23, 2024 Jakob Lomax , DOOther ProviderActiveStart: January 23, 2024 Nick Ken MDOther ProviderActiveStart: January 23, 2024 Yaz Beard , APRNOther ProviderActiveStart: January 23, 2024 Venus Man , APRNOther ProviderActiveStart: January 23, 2024 Joaquim Mayo MDOther ProviderActiveStart: January 23, 2024 Shane Durham MDOther ProviderActiveStart: January 23, 2024 Tico Whitehead , DOOther ProviderActiveStart: January 23, 2024 Alonso Maher , DOOther ProviderActiveStart: January 23, 2024 Humberto Bonds MDOther ProviderActiveStart: January 23, 2024 Chi Smith MDOther ProviderActiveStart: January 23, 2024 Chen Najera , APRNOther ProviderActiveStart: January 23, 2024 Dana Haddad MDOther ProviderActiveStart: January 23, 2024 Emmanuel Silverman MDOther ProviderActiveStart: January 23, 2024 Monisha Moore RNOther ProviderActiveStart: January 23, 2024 Team Status: Active Member Role Status Dates Stanley Emerson MD Primary Care Provi maddy, Attending Provider Active Start: September 30, 2023 Team Status: Active Member Role Status Dates Stanley Emerson MD Primary Care Provider Active Start: October 16, 2023 Arabella Bills ProviderActiveStart: October 16, 2023 Team Status: Inactive Member Role Status Dates Stanley Emerson MD Primary Care Provider Active Start: October 22, 2023 End: October 21Arabella Lew ProviderActiveStart: October 22, 2023 End: October 22, 2023 Team Status: Inactive Member Role Status Dates Stanley Emerson MD Primary Care Provider Active Arabella Llanos ProviderActive Team Status: Inactive Member Role Status Dates Stanley Emerson MD Primary Care Provider Active Indira Brown ProviderActiveMakaren Valentine MDOther Provider ActiveJanice Gonzalez MDOther ProviderActiveBernabe Cr DOAttclara ProviderActive Team Status: Inactive Member Role Status Dates Stanley Emerson MD Primary Care Provider Active Indira Llanos Provider, Attending ProviderActive Team Status: Inactive Member Role Status Dates Stanley Emerson MD Primary Care Provider Active HUMA Garcia-CAttenjae ProviderActive Team Status: Inactive Member Role Status Dates Stanley Emerson MD Primary Care Provider Active Arabella Bills ProviderActiveJUDITH Almonteeferring Provider Active Team Status: Inactive Member Role Status Dates Stanley Emerson MD Primary Care Provider Active Start: August 18, 2023 End: August 18, 2023MaArabella Henderson ProviderActiveStart: August 18, 2023 End: August 18, 2023 Team Status: Inactive Member Role Status Dates Stanley Emerson MD Primary Care Provider Active Start: September 18, 2023 End: September 18, 2023MaArabella Henderson ProviderActiveStart: September 18, 2023 End: September 18, 2023 Team Status: Inactive Member Role Status Dates Stanley Emerson MD Primary Care Provider Active Start: February 04, 2024 End: February 03Arabella Lew ProviderActiveStart: February 04, 2024 End: February 04, 2024Team MemberRelationshipSpecialtyStart DateEnd Date Stanley Emerson MD [facility] [address] [place] [address] PCP - Dihgttd85/23/22Team MemberRelationshipSpecialtyStart DateEnd Date Stanley Emerson MD [address] [facility] [place] [address] PCP - [facility]10/17/22 Stanley Emerson MD [address] [place] [address] PCP - GeneralFamily Medicine11/20/22 Dora Santiago, JOSH Licensed Practical NurseMercyone [facility] Centerly Medicine12/22/23Team MemberRelationshipSpecialty Start DateEnd Stanley Emerson MD [address] [facility] [place] [address] (Fax) PCP - [facility]10/17/22 Stanley Emerson MD [address] [place] [place] [phone] PCP - GeneralFamily Medicine11/20/22 Dora Santiago LPN [facility]12/22/23 Team Status: Inactive Member Role Status Dates Stanley Emerson MD Primary Care Provider Active Start: January 16, 2024 End: January 23, 2024W Mildred Starks Provider, Attending Provider ActiveStart: January 16, 2024 End: January 22lexnadine Randle RNOther ProviderActiveStart: January 16, 2024 End: January 22lionel Alvarez RNOther ProviderActiveStart: January 16, 2024 End: January 23, 2024Micmaxine Delgado RNOther ProviderActiveStart: January 16, 2024 End: January 23, 2024Momnany Rogel RNOther ProviderActiveStart: January 16, 2024 End: January 23, 2024Daisha Li RNOther ProviderActiveStart: January 16, 2024 End: January 22rosalba Berrios MDOther ProviderActiveStart: January 16, 2024 End: January 22roberto Deluca DOOther ProviderActiveStart: January 16, 2024 End: January 23, 2024Musdeb Martinez MDOther ProviderActiveStart: January 16, 2024 End: January 23, 2024Bernabe Cr DOOther ProviderActiveStart: January 16, 2024 End: January 22ndBe Quinn ProviderActiveStart: January 16, 2024 End: January 22Be Bansal ProviderActiveStart: January 16, 2024 End: January 23, 2024Namonet Mckenzie MDOther ProviderActiveStart: January 16, 2024 End: January 23, 2024Smiley Ibarraher ProviderActiveStart: January 16, 2024 End: January 23, 2024Jagjit Swenson MDOther ProviderActiveStart: January 16, 2024 End: January 22Be Padron ProviderActiveStart: January 16, 2024 End: January 23, 2024Taz Barnes MDOther ProviderActiveStart: January 16, 2024 End: January 23, 2024Sakate Tran MDOther ProviderActiveStart: January 16, 2024 End: January 23, 2024Michamilton Masterson DOOther ProviderActiveStart: January 16, 2024 End: January 23, 2024Kyle Ivy MDOther ProviderActiveStart: January 16, 2024 End: January 23, 2024Earromina Jaffe MDOther ProviderActiveStart: January 16, 2024 End: January 22ayah Hernandez NP-COther ProviderActiveStart: January 16, 2024 End: January 22dsusi Sandra APRNOther ProviderActiveStart: January 16, 2024 End: January 23, 2024Rob Almazan MDOther ProviderActiveStart: January 16, 2024 End: January 23, 2024Be Zafar ProviderActiveStart: January 16, 2024 End: January 22Be Avila ProviderActiveStart: January 16, 2024 End: January 23, 2024Basilio Tam MDOther ProviderActiveStart: January 16, 2024 End: January 22jennifer Garcia MDOther ProviderActiveStart: January 16, 2024 End: January 23, 2024Lydia Rene , DOOther ProviderActiveStart: January 16, 2024 End: January 23, 2024Lucas Dumas , DOOther ProviderActiveStart: January 16, 2024 End: January 23, 2024Cortney Watkins , APRNOther ProviderActiveStart: January 16, 2024 End: January 23, 2024Jakob Lomax , DOOther ProviderActiveStart: January 16, 2024 End: January 23, 2024Nick Ken MDOther ProviderActiveStart: January 16, 2024 End: January 22steven Beard APRNOther ProviderActiveStart: January 16, 2024 End: January 22elizabeth Man , APRNOther ProviderActiveStart: January 16, 2024 End: January 22anders Mayo MDOther ProviderActiveStart: January 16, 2024 End: January 22loy Durham MDOther ProviderActiveStart: January 16, 2024 End: January 23, 2024Tico Whitehead , DOOther ProviderActiveStart: January 16, 2024 End: January 23, 2024Alonso Maher , DOOther ProviderActiveStart: January 16, 2024 End: January 23, 2024Humberto Bonds MDOther ProviderActiveStart: January 16, 2024 End: January 22raul Smith MDOther ProviderActiveStart: January 16, 2024 End: January 22erick Najera , APRNOther ProviderActiveStart: January 16, 2024 End: January 23, 2024Dana Haddad MDOther ProviderActiveStart: January 16, 2024 End: January 22lorenzo Silverman MDOther ProviderActiveStart: January 16, 2024 End: January 23, 2024Monisha Moore RNOther ProviderActiveStart: January 16, 2024 End: January 23, 2024Myesha Feliz MDOther ProviderActiveStart: January 16, 2024 End: January 23, 2024Rogelio Rai MDOther ProviderActiveStart: January 16, 2024 End: January 23, 2024Elensergo Truong APRNOther ProviderActiveStart: January 16, 2024 End: January 22enedict Romina Yeboah Jr DOOther ProviderActiveStart: January 16, 2024 End: January 22monse Hoyt MDOther ProviderActiveStart: January 16, 2024 End: January 23, 2024 Team Status: Active Member Role Status Dates Stanley Emerson MD Primary Care Provider Active Start: January 16, 2024 Martita Garnica DOAttending ProviderActiveStart: January 16, 2024 Team Status: Active Member Role Status Dates Stanley Emerson MD Primary Care Provider Active Start: March 08, 2024 Rosalie Bailey APRNAttenjae ProviderActiveStart: March 08, 2024 Team Status: Inactive Member Role Status Dates Stanley Emerson MD Primary Care Provider Active Start: March 08, 2024 End: March 08rosalio Bailey APRNAttenjae ProviderActiveStart: March 08, 2024 End: March 08, 2024Team MemberRelationshipSpecialtyStart DateEnd Date Stanley Emerson MD [facility] [place] [address] (Fax) PCP - [facility]10/17/22 [place] [address] [place] [address] [place] [address] PCP - GeneralFamily Medicine11/20/22 Dora Santiago LPN Licensed Practical NurseFamily Medicine12/22/23Team MemberRelationshipSpecialty Start DateEnd Date Stanley Emerson MD [address] [place] [address] (Fax) PCP - ACO [facility]10/17/22 Stanley Emerson MD [address] [place] [address] (Fax) PCP - GeneralFamily Medicine11/20/22 Dora Santiago, JOSH Licensed Practical NurseFamily Medicine12/22/23Team MemberRelationshipSpecialty Start DateEnd Date Stanley Emerson MD [address] [place] [address] (Fax) PCP - ACO [facility]10/17/22 Stanley Emerson MD [address] [place] [address] (Fax) PCP - GeneralFamily Medicine11/20/22 Dora Santiago LPN Licensed Practical NurseFamily Medicine12/22/23Team MemberRelationshipSpecialty Start DateEnd Date Stanley Emerson MD [address] [place] [address] (Fax) PCP - [facility]10/17/22 Stanley Emerson MD [address] [place] [address] (Fax) PCP - GeneralFamily Medicine11/20/22 Dora Santiago LPN Licensed Practical Nursemily Medicine12/22/23Team MemberRelationshipSpecialty Start DateEnd Date Stanley Emerson MD [address] [place] [address] (Fax) PCP - [facility]10/17/22 Stanley Emerson MD [address] [place] [address] (Fax) PCP - GeneralFamily Medicine11/20/22 Dora Santiago LPN Licensed Practical NurseFamily Medicine12/22/23Team MemberRelationshipSpecialty Start DateEnd Date Stanley Emerson MD [address] [place] [address] PCP - Haypbql73/23/22Team MemberRelationshipSpecialtyStart DateEnd Date Stanley Emerson MD [address] [place] [address] (Fax) PCP - [facility]10/17/22 Stanley Emerson MD [address] [place] [address] (Fax) PCP - GeneralFamily Medicine11/20/22 Dora Santiago LPN Licensed Practical NurseFamily Medicine12/22/23Team MemberRelationshipSpecialty Start DateEnd Stanley Emerson MD [address] [place] [address] (Fax) PCP - [facility]10/17/22 Stanley Emerson MD [address] [place] [address] (Fax) PCP - GeneralFamily Medicine11/20/22 Dora Santiago LPN Licensed Practical NurseFamily Medicine12/22/23Team MemberRelationshipSpecialty Start DateEnd Date Stanley Emerson MD [address] [place] [address] PCP - Sxwftuh12/23/22Team MemberRelationshipSpecialtyStart DateEnd Date Stanley Emerson MD [address] [place] [address] (Fax) PCP - [facility]10/17/22 Stanley Emerson MD [address] [place] [address] (Fax) PCP - GeneralFamily Medicine11/20/22 Dora Santiago LPN Licensed Practical NurseFamily Medicine12/22/23Team MemberRelationshipSpecialty Start DateEnd Date Stanley Emerson MD [address] [place] [address] (Fax) PCP - [facility]10/17/22 Stanley Emerson MD [address] [place] [address] (Fax) PCP - GeneralFamily Medicine11/20/22 Dora Santiago LPN Licensed Practical NurseFamily Medicine12/22/23Team MemberRelationshipSpecialty Start DateEnd Date Stanley Emerson MD [address] [place] [address] (Fax) PCP - [facility]10/17/22 Stanley Emerson MD [address] [place] [address] (Fax) PCP - GeneralFamily Medicine11/20/22 Dora Santiago LPN Licensed Practical NurseFamily Medicine12/22/23Team MemberRelationshipSpecialty Start DateEnd Date Stanley Emerson MD [address] [place] [address] (Fax) PCP - [facility]10/17/22 Stanley Emerson MD [address] [place] [address] (Fax) PCP - GeneralFamily Medicine11/20/22 Dora Santiago LPN [facility]12/22/23Team MemberRelationshipSpecialty Start DateEnd Date Stanley Emerson MD [address] [place] [address] PCP - Untvnfa22/23/22Team MemberRelationshipSpecialtyStart DateEnd Date Stanley Emerson MD [address] [place] [address] PCP - Bghondu74/23/22 Team Status: Inactive Member Role Status Dates Stanley Emerson MD Primary Care Provider Active Start: May 21, 2024 End: May 21, 2024Hasalvador Al MDAttclara ProviderActiveStart: May 21, 2024 End: May 21, 2024Team MemberRelationshipSpecialtyStart DateEnd Date Stanley Emerson MD [address] [place] [address] (Fax) PCP - [facility]10/17/22 Stanley Emerson MD [address] [place] [address] (Fax) PCP - Generalmily Medicine11/20/22 Joi Zhang LPN 08/26/24Team MemberRelationshipSpecialtyStart DateEnd Date Stanley Emerson MD [address] [place] [address] (Fax) PCP - [facility]10/17/22 Stanley Emerson MD [address] [place] [address] (Fax) PCP - GeneralFamily Medicine11/20/22 Dora Santiago LPN Licensed Practical Nursemily Medicine Joi Zhang LPN 08/26/24Team MemberRelationshipSpecialtyStart DateEnd Date Stanley Emerson MD [address] [address] [place] [phone] PCP - Hklfwsn08/23/22Team MemberRelationshipSpecialtyStart DateEnd Date Stanley Emerson MD [address] [place] [address] (Fax) PCP - [facility]10/17/22 Stanley Emerson MD [address] [place] [address] (Fax) PCP - GeneralFamily Medicine11/20/22 Joi Zhang LPN 08/26/24Team MemberRelationshipSpecialtyStart DateEnd Date Stanley Emerson MD [address] [place] [address] (Fax) PCP - [facility]10/17/22 Stanley Emerson MD [address] [place] [address] (Fax) PCP - GeneralFamily Medicine11/20/22 Joi Zhang, RN CARDIAC CATH 08/26/24Team MemberRelationshipSpecialtyStart DateEnd Date Stanley Emerson MD [address] [place] [address] (Fax) PCP - [facility]10/17/22 Stanley Emerson MD [address] [place] [address] (Fax) PCP - GeneralFamily Medicine11/20/22 Joi Zhang, RN CARDIAC CATH 08/26/24Team MemberRelationshipSpecialtyStart DateEnd Date Stanley Emerson MD [address] [place] [address] (Fax) PCP - General10/02/24Team MemberRelationshipSpecialtyStart DateEnd Date Stanley Emerson MD [address] [place] [address] (Fax) PCP - General10/02/24Team MemberRelationshipSpecialtyStart DateEnd Date Stanley Emerson MD [address] [place] [address] PCP - Gdgxpzn13/23/22 Ruby Montana MD [address] [facility] [address] [place], [place] [phone] CardiologistElectrophysiology10/04/24Team MemberRelationshipSpecialtyStart Date End Date Stanley Emerson MD [address] [place] [address] (Fax) PCP - [facility]10/17/22 Stanley Emerson MD [address] [place] [address] (Fax) PCP - GeneralFamily Medicine11/20/22 Joi Zhang, RN CARDIAC CATH 08/26/24Team MemberRelationshipSpecialtyStart DateEnd Date Stanley Emerson MD [address] [place] [address] (Fax) PCP - [facility]10/17/22 Stanley Emerson MD [address] [place] [address] (Fax) PCP - GeneralFamily Medicine11/20/22 Joi Zhang, RN CARDIAC CATH 08/26/24Team MemberRelationshipSpecialtyStart DateEnd Date Stanley Emerson MD [address] [place] [address] (Fax) PCP - [facility]10/17/22 Stanley Emerson MD [address] [place] [address] (Fax) PCP - GeneralFamily Medicine11/20/22 Joi Zhang, RN CARDIAC CATH [address] [place] [address] 08/26/24Team MemberRelationshipSpecialtyStart DateEnd Date Stanley Emerson MD [address] [place] [address] (Fax) PCP - [facility]10/17/22 Stanley Emerson MD [address] [place] [address] (Fax) PCP - GeneralFamily Medicine11/20/22 Joi Zhang, RN CARDIAC CATH [address] [place] [address] 08/26/24 REASON FOR VISIT (unrecogniz ed section and content) ReasonCommentsekg visitSpecialtyDiagnoses / ProceduresReferred By Contact Referred To Contact Diagnoses Paroxysmal atrial fibrillation (Multi) Procedures ECG 12 Lead Teo Al MD [address] [facility] [address], [place] [phone] Referral IDStatusReasonStart DateExpiration DateVisits RequestedVisits [id number]/17/20249/17/801209XoptnxBlpldlbpAXUKtglwaLywhivvi Hospital [facility]up[facility] pecialtyDiagnoses / ProceduresReferred By Contact Referred To Contact Diagnoses Paroxysmal atrial fibrillation (Multi) Procedures ECG 12 Lead Teo Al MD [address] [place] [address] 2, [place] [phone] Referral IDStatusReasonStart DateExpiration DateVisits RequestedVisits [id number]/17/20249/17/[id number] RefillReason CommentsFollow-fy7wRaihaapnoIbepdoqlz / ProceduresReferred By ContactReferred To ContactCardiology Diagnoses Paroxysmal atrial fibrillation (Multi) Procedures Follow Up In Cardiology Teo Al MD [address] [place] [address] 2, [place] [phone] Phone: tel: fax: Teo Al MD [address] [place] [address] 2, [place] [phone] Phone: tel: fax: Referral IDStatusReasonStart DateExpiration DateVisits RequestedVisits [id number]/17/20249/17/492716MgavexXsmhdbopKwuexb Exam SpecialtyDiagnoses / ProceduresReferred By ContactReferred To ContactCardiology Diagnoses Cardiomyopathy, ischemic Procedures Follow Up In Cardiology Teo Al MD [address] [place] [address] 2, [place] [phone] Phone: tel: fax: Teo Al MD [address] [place] [address] [address], [address] [address] Phone: tel: fax: Referral IDStatusReasonB[place]ch [place] DateExpiration DateVisits RequestedVisits [id number]/27/202412/27/901167AkdrkzKesrhohyRctrla-mn8 month follow up abnormal testingSpecialtyDiagnoses / ProceduresReferred By Contact Referred To Contact Diagnoses Paroxysmal atrial fibrillation (Multi) Procedures ECG 12 Lead Teo Al MD [address] [place] [address] 2, [place] [phone] Phone: tel: fax: Referral IDStatusReasonStart DateExpiration DateVisits RequestedVisits [id number]/18/20254/416609XalijpXpelnvskFuflvzbrqxtdqh ReasonCommentsNew Patient VisitPatient is present to establish care . Patient was referred by cardiology for Paroxysmal atrial fibrillation.SpecialtyDiagnoses / ProceduresReferred By ContactReferred To ContactCardiology Diagnoses Cardiomyopathy, ischemic Teo Al MD [address] [facility] [address], [address] [address] Phone: tel: fax: Ruby [place] MD [address] [facility], [address] [address] Phone: tel: fax: Referral IDStatusReasonStart DateExpiration DateVisits RequestedVisits [id number] Specialty Services Required / Goals (unrecognized section and content) Goals may be documented in a n alternate section Ordered Prescriptions (unrec ognized section and content) PrescriptionSigDispense QuantityRefillsLast FilledStart DateEnd Date sulfamethoxazole-trimethoprim (BACTRIM DS;SEPTRA DS) 800-160 MG per tablet Take 1 tablet by mouth daily for 7 days 7 tablet / albuterol sulfate HFA (PROVENTIL;VENTOLIN;PROAIR) 108 (90 Base) MCG/ACT inhaler Inhale 2 puffs into the lungs every 6 hours as needed for Wheezing or Shortness of Breath 18 g 10/05/2024 QUEtiapine (SEROQUEL) 25 MG tablet Take 1 tablet by mouth nightly 60 tablet 10/05/2024 rivastigmine (EXELON) 4.6 MG/24HR Place 1 patch onto the skin daily 30 patch ciprofloxacin (CIPRO) 250 MG tablet Take 1 tablet by mouth every 12 hours for 9 doses 9 tablet / Scheduled Active and Recently Administ ered Medications (unrecognized section and content) Medication Order/// amiodarone (CORDARONE) tablet 200 mg 200 mg, Oral, DAILY, First dose on 10/02/24 at 1130, Until Discontinued * 0754 (Given - Provider: Mar Gonzalez, ROCIO) * 0839 (Given - Provider: Jessy Wayne, ROCIO) * 0835 (Given - Provider: Coco Mirza, ROCIO) atorvastatin (LIPITOR) tablet 80 mg 80 mg, Oral, NIGHTLY, First dose on 10/02/24 at 2100, Until Discontinued * 2038 (Given - Provider: Gi Berrios, ROCIO) * 194 (Given - Provider: Milton Kaiser, ROCIO) * 2099 (Due) azithromycin (ZITHROMAX) 500 mg in sodium chloride 0.9 % 250 mL IVPB (Itfx6Cvn) (COMPLETED) 500 mg, IntraVENous, EVERY 24 HOURS, 2 doses, First dose on 10/02/24 at 1200, Last dose on 10/03/24 at 1200, Antimicrobial Indications: Pneumonia (CAP), CAP duration of therapy: 3 days, Use 20mm (Blue) Nbne0Fln Adapter Preparation instructions: Attach medication vial to one 20mm (Blue) Ftra7Xub adapter. James fluid bag with adapter, mix, and administer per order. * 1145 (New Bag - Provider: Mar Gonzalez RN) * 1253 (Stopped - Provider: Mar Gonzalez RN) cefTRIAXone (ROCEPHIN) 1,000 mg in sterile water 10 mL IV syringe (CANCELED) 1,000 mg, IntraVENous, EVERY 24 HOURS, First dose on 10/02/24 at 1200, For 4 days, Administer asslow IV Push over 5 mins Reconstitute 1 g vials with 9.6 mL of designated diluent to produce a 100 mg/mL solution. * 1127 (Given - Provider: Mar Gonzalez RN) * 1221 (Given - Provider: Jessy Wayne RN) ciprofloxacin (CIPRO) tablet 250 mg (CANCELED) 250 mg, Oral, EVERY 12 HOURS SCHEDULED (2 times per day), 10 doses, First dose on Fri10/05/24 at 1045, Last dose on Fri10/09/24 at 2100, Antimicrobial Indications: Urinary Tract Infection, UTI duration of therapy: 5 days, Do not take with dairy products or calcium-fortified juices. Tube feeding (TF) interaction, obtain physician order to manage. Recommend holding TF for 1 hr before and 1 hr afterdose. Due to decreased absorption do not give by J tube. * 1059 (Given - Provider: Jessy Wayne RN) clopidogrel (PLAVIX) tablet 75 mg 75 mg, Oral, DAILY, First dose on 10/02/24 at 1130, Until Discontinued * 0754 (Given - Provider: Mar Gonzalez RN) * 0839 (Given - Provider: Jessy Wayne, ROCIO) * 0835 (Given - Provider: Coco Mirza RN) ferrous sulfate (IRON 325) tablet 325 mg (CANCELED) 325 mg, Oral, 2 TIMES DAILY WITH MEALS, First dose on 10/02/24 at 1130, Until Discontinued * 0754 (Given - Provider: Mar Gonzalez RN) * 1716 (Given - Provider: Mar Gonzalez RN) * 0839 (Given - Provider: Jessy Wayne RN) * 1639 (Given - Provider: Jessy Wayne RN) * 0836 (Given - Provider: Coco Mirza RN) ferrous sulfate (IRON 325) tablet 325 mg 325 mg, Oral, DAILY WITH BREAKFAST, First dose (after last modification) on Fri10/06/24 at 0800, Until Discontinued furosemide (LASIX) tablet 40 mg 40 mg, Oral, DAILY, First dose on 10/03/24 at 0900, Until Discontinued * 0754 (Given - Provider: Mar Gonzalez RN) * 0839 (Given - Provider: Jessy Wayne RN) * 0836 (Given - Provider: Coco Mirza RN) iron sucrose (VENOFER) injection 200 mg (COMPLETED) 200 mg, IntraVENous, ONCE, On Fri10/04/24 at 0900, For 1 dose, May administer doses less than or equal to 200 mg undiluted by slow IV injection over 2 to 5 minutes. When administering to hemodialysispatients, give within the first hour of the session. Observe for signs and symptoms of hypersensitivity and/or anaphylactic-type reactions per institutional standard during and for at least 30 minutes following the end of administration and until clinically stable. * 1111 (Given - Provider: Jessy Wayne RN) methIMAzole (TAPAZOLE) tablet 5 mg 5 mg, Oral, 2 TIMES DAILY, First dose on 10/02/24 at 1130, Until Discontinued * 0754 (Given - Provider: Mar Gonzalez RN) * 2039 (Given - Provider: Gi Berrios RN) * 0841 (Given - Provider: Jessy Wayne RN) * 194 (Given - Provider: Milton Kaiser RN) * 0843 (Given - Provider: Coco Mirza RN) * 2100 (Due) metoprolol succinate (TOPROL XL) extended release tablet 25 mg 25 mg, Oral, DAILY, First dose on 10/03/24 at 0900, Until Discontinued, Do not crush or chew. * 0754 (Given - Provider: Mar Gonzalez RN) * 0839 (Given - Provider: Jessy Wayne RN) * 0836 (Given - Provider: Coco Mirza RN) QUEtiapine (SEROQUEL) tablet 25 mg 25 mg, Oral, NIGHTLY, First dose on 10/02/24 at 2100, Until Discontinued * 2038 (Given - Provider: Gi Berrios, ROCIO) * 1939 (Given - Provider: Milton Kaiser, ROCIO) * 2099 (Due) rivastigmine (EXELON) 4.6 MG/24HR 1 patch 1 patch, TransDERmal, Administer over 24 Hours, DAILY, First dose on 10/04/24 at 1615 * 1639 (Patch Applied - Provider: Jessy Wayne RN) * 0843 (Patch Removed - Provider: Coco Mirza RN) * 0844 (Patch Applied - Provider: Coco Mirza RN) sodium chloride flush 0.9 % injection 5-40 mL 5-40 mL, IntraVENous, EVERY 12 HOURS SCHEDULED (2 times per day), First dose on Fri10/02/24 at 1115, Until Discontinued, For Line Patency: Peripheral IV = 5 mL; Midline or Central Line = 10 mL/lumen.If following IV push medication, administer flush at same rate as the IV push. Flush volume is determined by type of infusion therapy being given. For non-viscous solutions use: Peripheral IV = 5 mL Midline or Central Line = 10 mL/lumen For viscous solutions (i.e. blood components, parenteral nutrition, contrast media, or after obtaining blood sample) use: Peripheral IV = 10 mL Midline or CentralLine = 20 mL/lumen * 0754 (Given - Provider: Mar Gonzalez RN) * 2038 (Given - Provider: Gi Berrios, ROCIO) * 0841 (Given - Provider: Jessy Wayne RN) * 194 (Given - Provider: Milton Kaiser, ROCIO) * 0843 (Given - Provider: Coco Mirza RN) * 2100 (Due) warfarin (COUMADIN) tablet 2 mg 2 mg, Oral, ONCE Warfarin, 1 dose, On Fri10/05/24 at 1800, Indication of Use: A Fib/A Flutter, Whatis the patient's goal INR? 2.0 - 3.0, Review INR prior to administration. Hazardous med- See facility policy for handling/disposal * 1800 (Due) warfarin (COUMADIN) tablet 4 mg (COMPLETED) 4 mg, Oral, ONCE Warfarin, 1 dose, On Fri10/03/24 at 1800, Indication of Use: A Fib/A Flutter, Whatis the patient's goal INR? 2.0 - 3.0, Review INR prior to administration. Hazardous med- See facility policy for handling/disposal * 1716 (Given - Provider: Mar Gonzalez, ROCIO) warfarin (COUMADIN) tablet 4 mg (COMPLETED) 4 mg, Oral, ONCE Warfarin, 1 dose, On 10/04/24 at 1800, Indication of Use: A Fib/A Flutter, Whatis the patient's goal INR? 2.0 - 3.0, Review INR prior to administration. Hazardous med- See facility policy for handling/disposal * 1802 (Given - Provider: Jessy Wayne RN) warfarin placeholder: dosing by pharmacy Please contact the pharmacy if a dose is not entered by 1600. Review INR prior to warfarin administration. Medication Order// 0.9 % sodium chloride infusion IntraVENous, at [...] 2 doses Infuse at 1,000 mg/hr Repeat Maglevel 1 hour after final administration Protocol not for use in Patients with CrCl less than 30ml/min melatonin tablet 3 mg 3 mg, Oral, NIGHTLY PRN, Starting on 10/04/24 at 1903, Until Discontinued, Sleep * 1940 (Given - Provider: Milton Kaiser, RN) nitroGLYCERIN (NITROSTAT) SL tablet 0.4 mg [...] further dilute if GI adverse effects occur. * 0900 (See Alternative - Provider: Mar Gonzalez RN) * 0836 (Given - Provider: Coco Mirza RN) [...] use in patients with CrCl less than 30mL/min. Do not crush, chew, or suck on tablet. Tablet may also be broken in half and each half swallowed separately. * 0900 (Given - Provider: Mar Gonzalez RN) * 0836 (See Alternative - Provider: Coco Mirza [...] in patients with CrCl less than 30 mL /min. * 0900 (See Alternative - Provider: Mar Gonzalez RN) * 0836 (See Alternative - Provider: Coco Mirza RN) sodium chloride flush 0.9 % injection 5-40 mL 5-40 mL, IntraVENous, PRN, Starting on Sat 525 at 1050, Until Discontinued, Line Care, After [...] For viscous solutions (i.e. blood components, parenteral nutrition,contrast media, or after obtaining blood sample) use: Peripheral IV = 10 mL Midline or Central Line= 20 mL/lumen * 1112 (Given - Provider: Jessy Wayne RN) Order Group 1: acetaminophen (TYLENOL) tablet 650 mgJump to med 650 mg, Oral, EVERY 6 HOURS PRN, Starting on Sat [...] EVERY 8 HOURS PRN, Starting on Sat 525 at 1050, Until Discontinued, Nausea, Vomiting Or [...] use in patients with CrCl less than 30mL/min. Do not crush, chew, or suck on [...] med 10 mEq, IntraVENous, PRN, Starting on Sat [...] in patients with CrCl less than 30 mL /min. FOR RECORDS PERTAINING TO PATIENTS WHO ARE [...] BE BASED ON THE PRIMARY CLINICAL RECORDS. [employer] [facility]. provides no warranty or guarantee of the accuracy or completeness of information in this document.
[2025-03-18 10:26] LABS: Anion Gap 16.4; Aspartate Amino Transferase 18 U/L (15-37); Blood Urea Nitrogen 26.0 mg/dL (7.0-18.0); Calcium 8.8 mg/dL (8.5-10.1); Carbon Dioxide 27.5 mmol/L (21.0-32.0); Chloride 107 mmol/L (98-107); Cholesterol 86 mg/dL (<=200); Estimated GFR (African America 44 (>=60 mL/min/1.73m^2); Estimated GFR (Non-African Ame 36 (>=60 mL/min/1.73m^2); Glucose 88 mg/dL (74-106); HDL Cholesterol 39 mg/dL (40-60); Potassium 3.9 mmol/L (3.5-5.1); Sodium 147 mmol/L (136-145); Thyroid Stimulating Hormone 16.644 uIU/mL (0.358-3.740); Triglycerides 74 mg/dL (<=150); VLDL CHOLESTEROL 14.8 mg/dL
== END 2025-03-18 08:00 | disposition home or self-care (01) ==
LOC: LAB 08:03
PROVIDERS: PCP Family Medicine; Visit Provider Internal Medicine Cardiovascular Disease
DX: I48.0 Paroxysmal atrial fibrillation (principal); Z79.899 Other long term (current) drug therapy; E78.5 Hyperlipidemia, unspecified
CPT/HCPCS: 36415; 80048; 80061; 84443; 84450

== ENCOUNTER 2025-03-22 11:16 | Outpatient (OUT) | payer MEDICARE, OTHER, SELFPAY ==
--- OUTSIDE RECORDS SUMMARY | 2019-12-10 07:15 | XMS_ITS | Continuity of Care Document ---
Author Organization [facility] Address [address] [place] [phone] Phone Care Team Providers Care Railroad Car Letterer Name Role Phone Alberto Farrell Unavailable Unavailable Procedures Procedure Date Covid Testing [facility] Results Test Name Date and Time Measure Units Reference Range Abnormal Flag Status Comments Panel Description: SARS-CoV-2, KARI Final SARS-CoV- 2, KARI 020 18:04:00 Not Detected Not Detected Final This test was developed and its performance characteristics determinedby [employer]. This test has not been FDA cleared [...] anegative (not detected) result in this assay.Performed by:[facility] ([facility]) Panel Description: SARS-CoV-2 Antibody, IgM [facility] SARS-CoV- 2 Antibody, IgM 020 16:11:00 Negative Negative Final This sample do es not contain detectable SARS-CoV-2 IgM antibodies.This negative result does not rule out SARS-CoV-2 infection.Correlation with epidemiologic risk factors and other clinical andlaboratory findings is recommended. Serologic results should not beused as the sole basis to diagnose or exclude recent [id number].P erformed by:[facility] ([email or web address]) Panel Description: SARS-CoV-2 Antibody, IgG Fin al SARS-CoV- 2 Antibody, IgG 020 07:12:00 Negative Negative Final This sample do es not contain detectable SARS-CoV-2 IgG antibodies.This negative result does not rule out SARS-CoV-2 infection.Correlation with epidemiologic risk factors and other clinical andlaboratory findings is recommended. Serologic results should not beused as the sole basis to diagnose or exclude recent [id number].T his assay was performed using the [employer] SARS-CoV-2 IgG assay.Performed by:[facility] ([email or web address]) Advance Directives Directive Yes / No Effective Date File Name No Information Encounters Encounter Description Practice Location Reason(s) For Visit Diagnoses Date Provider Providers Copied on Encounter [facility], [address] [place] [address], [id number], [place] tel:[phone] COVID ECHD Encounter for screening for other viral diseases Visci DO Alberto. [address] [place] [address], [id number], [place]. tel:[phone] Family History Family Member Type Diagnosis Age At Onset No Information Payers Payer name Insurance type Covered republican ID Authoriza tion(s) Medicare [facility] [id number] Social History Type Description Quantity Date Captured [...]
--- OUTSIDE RECORDS SUMMARY | 2025-03-22 11:22 | XMS_ITS | Encounter Summary ---
Author Organization [facility] Address [address] [place] [address] Care Team Providers Care Medical Geneticist Name Role Phone Stanley Toledo MD Unavailable [phone] Stanley Toledo MD Primary Care Provider + [phone] Dora Santiago GREASE MAKER HEAD Unavailable Vicente Joi GREASE MAKER HEAD Unavailable Encounter Details DateTypeDepartmentCare Team (Latest Contact Info)Eodtiyxvepn63/29/2024Clinisync Result Encounter [facility] External Department Unsolicited Provider, Generic External Data Social History Tobacco UseTypesPacks/DayYears UsedDateSmoking Tobacco: FormerCigarettes0.561.2 Started: 12/31/1963Smokeless Tobacco: NeverAlcohol UseStandard Drinks/Week CommentsNever0 (1 standard drink = 0.6 oz pure alcohol)B1300 Health Literacy AnswerDate RecordedHow often do you need to have someone help you when you read instructions, pamphlets, or other written material from your doctor or pharmacy? Jtbufq4812/30/2024Humiliation, Afraid, Rape, and Kick questionnaireAnswerDate RecordedWithin the last year, have you been afraid of your partner or ex-partner?No12/31/2023Within the last year, have you been humiliated or emotionally abused in other ways by your partner or ex-partner?No12/31/2023 Within the last year, have you been kicked, hit, slapped, or otherwise physically hurt by your partner or ex-partner?No12/31/2023Within the last year, have you been raped or forced to have any kind of sexual activity by your part ner or ex-partner?No12/31/2023Social Connection and Isolation PanelAnswerDate RecordedIn a typical week, how many times do you talk on the phone with family, friends, or neighbors?More than three times a week12/31/2023How often do you get together with friends or relatives?More than three times a week12/31/2023How often do you attend spiritism or jew services?Never12/31/2023o you belong to any clubs or organizations such as spiritism groups, unions, fraVeryan Medical or athletic groups, or school groups?No12/31/2023How often do you attend meetings of the clubs or organizations you belong to?Never12/31/2023re you , , , , never , or living with a partner?Errhsnk6812/31/2023 AUDIT-CAnswerDate RecordedQ1: How often do you have a drink containing alcohol? Never12/31/2023Q2: How many drinks containing alcohol do you have on a typical day when you are drinking?Patient does not drink12/31/2023Q3: How often do you have six or more drinks on one occasion?Never12/31/2023Overall Financial Resource Strain (CARDIA)AnswerDate RecordedHow hard is it for you to pay for the very basics like food, housing, medical care, and heating?Not hard at all 12/31/2023HQ-2AnswerDate RecordedPatient Health Questionnaire-2 Score0 05/13/2024[facility] [place] [facility] Occup[facility] Health - Occupational Stress QuestionnaireAnswerDate RecordedDo you feel stress - tense, restless, nervous, or anxious, or unable to sleep at night because yourmind is troubled all the time - these days?Only a snjbmc4712/30/2024Exercise Vital SignAnswerDate Recorded On average, how many days per week do you engage in moderate to strenuous exercise (like a brisk walk)?5 days12/30/2024On average, how many minutes do you engage in exercise at this level?30 min12/30/2024Hunger Vital SignAnswerDate RecordedWithin the past 12 months, you worried that your food would run out before you got the money to buymore.Never true08/07/2024Within the past 12 months, the food you bought just didn't last and you didn't have money to get more.Never true12/31/2023RAPARE - TransportationAnswerDate RecordedIn the past 12 months, has lack of transportation kept you from medical appointments or from getting medications?No12/31/2023In the past 12 months, has lack of transportation kept you from meetings, work, or from getting things needed for daily living?No12/31/2023Housing Stability Vital SignAnswerDate RecordedIn the last 12 months, was there a time when you were not able to pay the mortgage or rent on time?No12/31/2023In the past 12 months, how many times have you moved where you were living?t any time in the past 12 months, were you homeless or living in a residential (including now)?No12/31/2023Sex and Gender InformationValueDate RecordedSex Assigned at BirthNot on fileLegal SexMale 08/07/2022 7:16 PM EDTGender IdentityNot on fileSexual OrientationNot on file documented as of this encounter Functional Status * Over the past 2 weeks, how often have you been bothered by any of the following problems?QuestionAnswerDate of AssessmentAuthorLittle interest or pleasure in doing thingsNot at all05/13/2024 2:00 PM Betty Beltran, DUSTY Feeling down, depressed, or hopelessNot at all05/13/2024 2:00 PM Ruby August, MAPatient Health Questionnaire-2 Cuofp37407/14/2023 2:00 PM Betty Beltran, DUSTY * QuestionAnswerDate of AssessmentAuthorTrouble falling or staying asleep, or sleeping too muchSeveral days05/13/2024 2:00 PM Ruby August, MAFeeling tired or having little energyMore than half the days05/13/2024 2:00 PM JENIFFER Cohen August, MAPoor appetite or overeatingNot at all05/13/2024 2:00 PM JENIFFER Cohen August, MAFeeling bad about yourself - or that you are a failure or have let yourself or your family downNot at all05/13/2024 2:00 PM JENIFFERAugust, MATrouble concentrating on things, such as reading the newspaper or watching televisionNot at all05/13/2024 2:00 PM August, MAMoving or speaking so slowly that other people could have noticed? Or the opposite - being so fidgety or restless that you have been moving around a lot more than usual.Not at all05/13/2024 2:00 PM JENIFFERAugust, MAThoughts that you would be better off or hurting yourself in some wayNot at all05/13/2024 2:00 PM JENIFFERAugust, MAPatient Health Questionnaire-9 Sicou54807/14/2023 2:00 PM Ruby, August, MA documented as of this encounter Plan of Treatment DateTypeDepartmentCare Team (Latest Contact Info)Xfghqvginpb99/16/2025 2:00 PM ESTOffice Visit [facility] [address] [place] [address] [place] [address] Stanley Toledo MD [address] [facility] [address] [place] [address] documented as of this encounter Procedures Procedure NamePriorityDate/TimeAssociated DiagnosisCommentsRT PULMONARY FUNCTION TEST03/23/2024 12:59 PM EDT documented in this encounter Results * RT PULMONARY FUNCTION TEST (03/23/2024 12:59 PM EDT)Anatomical Region LateralityModalityOtherSpecimen (Source)Anatomical Location / Laterality Collection Method / VolumeCollection TimeReceived Time03/23/2024 12:59 PM EDT Narrative 03/24/2024 5:50 PM EDT [facility] ?[address] ? [place] [address] ? Respiratory Report ? Signed ? Patient: ALEX GRAJEDA ?MR#: [id number] ?? : 1945 ?Acct:[id number] ?? Age/Sex: 78 / M ?ADM Date: 03/23/24 ?? Loc: CARD ? Attending Dr: MAGDY AL ? Ordering Physician: MAGDY AL ?? Date of Service: 03/23/24 ?? Procedure(s): RT pulmonary function test ?? Accession Number(s): [id number] ? cc: ?[facility] ? Test Date: ?2024-03-23 ?? Pat Name: ? ALEX GRAJEDA ? Department: ? Room: ? - ?? Gender: ? Male ? Cable Installer: ?? Reymundo Alamo, MANAGER WASTEWATER ?? : ?1945 ? Requested By: 358 ?? Order Number: [id number] ?Reading MD: ?? Aayush Gallo ? Interpretive Statements ?? Pulmonary function testing was completed according to ATS criteria. Findings ?? were considered accurate and reproducible, with exception of DLCO which did ?? not meet ATS standards and was ultimately not obtained. ??Both pre- and ?? post-bronchodilator values utilized for spirometry. No prior studies ?? available for comparison. ? Spirometry (based on pre-bronchodilator values): ?? -FEV1/FVC: Reduced @ 48% ?? -FEV1: Severely reduced @ 49% ?? -FVC: Reduced @ 75% ?? -There is a positive bronchodilator response in FEV1 and FVC. ? Lung volumes by plethysmography: ?? -RV: Increased @ 171% ?? -TLC: Normal @ 108% ? Diffusion capacity: ?? -Unable to obtain ? Flow-volume loop: ?? -Severe obstructive pattern ? Impressions: ?? -Spirometry suggests severe obstruction. There is a positive bronchodilator ?? response. An elevated RV suggests air trapping. Overall study suggests either ?? asthma or COPD with a positive bronchodilator response. ??Clinical correlation ?? required. ? Electronically Signed On 03-24-2024 17:50:01 EDT by Aayush Gallo ? Dictated By: ?Sabino,Aayush Bynum. ? Signed By: ?03/24/ 1750 ? DD/ 1259 ? TD/TT: ? Mid Level Practitioner: Procedure Note Radiology, Radiologist, - 03/24/2024 [place] [address] Respiratory Report Signed Patient: ALEX GRAJEDA HMR#: [id number] : 1945cct:[id number] Age/Sex: 78 / MADM Date: 03/23/24 Loc: CARD Attending Dr: MAGDY AL Ordering Physician: MAGDY AL Date of Service: 03/23/24 Procedure(s): RT pulmonary function test Accession Number(s): [id number] cc: [facility] Test Date: 2024-03-23 Pat Name: ALEX GRAJEDA Department: Room: - Gender: Male Cable Installer: Reymundo Alamo RRT : 1945 Requested By: 358 Order Number: [id number] Reading MD: Aayush Gallo Interpretive Statements Pulmonary [...] Dictated By: Aayush Gallo D.O. Signed By:03/24/24 3449 DD/ 1259 TD/TT: Mid Level Practitioner: Authorizing ProviderResult TypeResult StatusGeneric External Data Provider CLINISYNC IMAGINGFinal Result documented in this encounter Visit Diagnoses Not on filedocumented in this encounter Additional Health Concerns AssessmentNoted TimePHQ-9 Depression Total Score: 1:00 PM ESTA fall risk assessment has been completed for the eytqnvz3912/31/2023 8:54 AM EDT documented as of this encounter Care Teams Team MemberRelationshipSpecialtyStart DateEnd Date Stanley Toledo MD [address] [place] [address] PCP - ACO Reach10/17/22 Stanley Toledo MD [address] [facility] [address] [place] [address] PCP - GeneralFamily Medicine11/20/22 Dora Santiago LPN [address] [place] [address] Licensed Practical NurseFamily Medicine Joi Zhang LPN [address] [place] [address] 08/26/24documented as of this encounter
--- OUTSIDE RECORDS SUMMARY | 2025-03-22 11:22 | XMS_ITS | Encounter Summary ---
Author Organization [facility] Address [address] [place] [address] Care Team Providers Care Inventory Management Specialist Name Role Phone Stanley Toledo MD Unavailable [phone] Stanley Toledo MD Primary Care Provider + [phone] Dora Santiago ACID ETCH OPERATOR Unavailable Vicente Joi ACID ETCH OPERATOR Unavailable Encounter Details DateTypeDepartmentCare Team (Latest Contact Info)Iytvkmboodq97/30/2024Clinisync Result Encounter [facility] External Department Unsolicited Provider, Generic External Data Social History Tobacco UseTypesPacks/DayYears UsedDateSmoking Tobacco: FormerCigarettes0.561.2 Started: 12/31/1963Smokeless Tobacco: NeverAlcohol UseStandard Drinks/Week CommentsNever0 (1 standard drink = 0.6 oz pure alcohol)B1300 Health Literacy AnswerDate RecordedHow often do you need to have someone help you when you read instructions, pamphlets, or other written material from your doctor or pharmacy? Zkoewv1012/30/2024Humiliation, Afraid, Rape, and Kick questionnaireAnswerDate RecordedWithin the [...] times a week12/31/2023How often do you attend advent or confucianism services?Never12/31/2023o you belong to any clubs or organizations such as advent groups, unions, fraPunctil or athletic groups, or school groups?No12/31/2023How often do you attend meetings of the clubs or organizations you belong to?Never12/31/2023re you , , , , never , or living with a partner?Cqfqimn8712/31/2023 AUDIT-CAnswerDate RecordedQ1: How often do you have [...] at all 12/31/2023HQ-2AnswerDate RecordedPatient Health Questionnaire-2 Score0 05/13/2024[facility] [place] of Occupational Health - Occupational Stress QuestionnaireAnswerDate RecordedDo you feel stress - tense, restless, nervous, or anxious, or unable to sleep at night because yourmind is troubled all the time - these days?Only a kzmxwy7012/30/2024Exercise Vital SignAnswerDate Recorded On average, how many [...] or living in a senior care (including now)?No12/31/2023Sex and Gender InformationValueDate RecordedSex Assigned [...] 2:00 PM Ruby August, MAPatient Health Questionnaire-2 Ffoja77807/14/2023 2:00 PM Betty Beltran, DUSTY * QuestionAnswerDate [...] all05/13/2024 2:00 PM JENIFFERAugust, MAPatient Health Questionnaire-9 Djbji03507/14/2023 2:00 PM Ruby, August, MA documented as of this encounter Plan of Treatment DateTypeDepartmentCare Team (Latest Contact Info)Qkspiffqwwe36/16/2025 2:00 PM ESTOffice Visit [facility] [address] [place] [address] [place] [address] Stanley Toledo MD [address] [place] [address] documented as of this encounter Procedures Procedure NamePriorityDate/TimeAssociated QomefzsurDavludeyZMC74/30/2024 11:46 AM EDT documented in this encounter Results * ITP (03/24/2024 11:46 AM EDT)Anatomical RegionLateralityModalityOtherSpecimen (Source)Anatomical Location / LateralityCollection Method / VolumeCollection TimeReceived Time03/24/2024 11:46 AM EDT Narrative 03/24/2024 11:29 PM EDT [facility] ?[address] ? [place] [address] ?Cardiac Rehab Report ? Signed ? Patient: GRAJEDA,ALEX Wilder ?MR#: [id number] ?? : 1945 ?Acct:[id number] ?? Age/Sex: 78 / M ?ADM Date: 03/24/24 ?? Loc: CR ? Attending Dr: MAGDY AL ? Ordering Physician: Arnol Garnica D.O. ?? Date of Service: 03/24/24 ?? Procedure(s): ITP ?? Accession Number(s): [id number] ? cc: ?[facility] ? Test Date: ?2024-03-24 ?? Pat Name: ? ALEX GRAJEDA ? Department: ? Room: ? - ?? Gender: ? Male ? Strike On Machine Operator: ? : ?1945 ? Requested By: ARNOL ??BALL ?? Order Number: [id number] ?Reading MD: ?? ARNOL ??BALL ? Interpretive Statements ?? Session Date: ? Electronically Signed On 03-24-2024 23:29:20 EDT by ARNOL ??BALL ? Dictated By: ?Kristopher,Arnol D.O. ? Signed By: ?03/24/24 2329 ?03/24/249 ? DD/ 1146 ? TD/TT: ? Review Manager: Procedure Note Radiology, Radiologist, MD - 03/24/2024 [place] [address] Cardiac Rehab Report Signed Patient: ALEX GRAJEDA R#: [id number] : 4Acct:[id number] Age/Sex: 78 / MADM Date: 03/24/24 Loc: CR Attending Dr: MAGDY AL Ordering Physician: Arnol Garnica D.O. Date of Service: 03/24/24 Procedure(s): ITP Accession Number(s): [id number] cc: [facility] Test Date: 2024-03-24 Pat Name: ALEX GRAJEDA Department: Room: - Gender: Male Strike On Machine Operator: : 1945 Requested By: ARNOL GARNICA Order Number: [id number] Silverio MD: ARNOL GARNICA Interpretive Statements Session Date: Electronically Signed On 03-24-2024 23:29:20 EDT by ARNOL GARNICA Dictated By: Arnol Garnica D.O. Signed By:03/24/24232803/24/242328 DD/ 114 TD/TT: Review Manager: Authorizing ProviderResult TypeResult StatusGeneric External Data Provider CLINISYNC IMAGINGFinal Result documented in this encounter Visit Diagnoses Not on filedocumented in this encounter Additional Health Concerns AssessmentNoted TimePHQ-9 Depression Total Score: 1:00 PM ESTA fall risk assessment has been completed for the yneflgy2912/31/2023 8:54 AM EDT documented as of this encounter Care Teams Team MemberRelationshipSpecialtyStart DateEnd Date Stanley Toledo MD [address] [place] [address] (Fax) PCP - ACO Reach10/17/22 Stanley Toledo MD [address] [place] [address] PCP - GeneralFamily Medicine11/20/22 Dora Santiago LPN [address] [place] [address] Licensed Practical NurseFamily Medicine Joi Zhang LPN [address] [place] [address] 08/26/24documented as of this encounter
--- OUTSIDE RECORDS SUMMARY | 2025-03-22 11:22 | XMS_ITS | Encounter Summary ---
Author Organization [facility] Address [address] [place] [address] Care Team Providers Care Carpet Weaver Name Role Phone Stanley Toledo MD Unavailable [phone] Stanley Toledo MD Primary Care Provider + [phone] Joi Zhang LPN Unavailable Encounter Details DateTypeDepartmentCare Team (Latest Contact Info)Adjtmtjrpci75/27/2025Patient Outreach [facility] [address] [place] [phone] Joi Zhang LPN [address] [place] [address] Social History Tobacco UseTypesPacks/DayYears UsedDateSmoking Tobacco: FormerCigarettes0.561.2 Started: 12/31/1963Smokeless Tobacco: NeverAlcohol UseStandard Drinks/Week CommentsNever0 (1 standard drink = 0.6 oz pure alcohol)B1300 Health Literacy AnswerDate RecordedHow often do you need to have someone help you when you read instructions, pamphlets, or other written material from your doctor or pharmacy? Hsjlpp9612/30/2024Humiliation, Afraid, Rape, and Kick questionnaireAnswerDate RecordedWithin the [...] times a week12/31/2023How often do you attend anabaptist or buddhism services?Never12/31/2023o you belong to any clubs or organizations such as anabaptist groups, unions, fraternal or athletic groups, or school groups?No12/31/2023How often do you attend meetings of the clubs or organizations you belong to?Never12/31/2023re you , , , , never , or living with a partner?Bzlygek8612/31/2023 AUDIT-CAnswerDate RecordedQ1: How often do you have [...] at all 12/31/2023HQ-2AnswerDate RecordedPatient Health Questionnaire-2 Score0 05/13/2024[facility] [place] [facility] Occup[facility] Health - Occupational Stress QuestionnaireAnswerDate RecordedDo you feel stress - tense, restless, nervous, or anxious, or unable to sleep at night because yourmind is troubled all the time - these days?Only a tycfcv8912/30/2024Exercise Vital SignAnswerDate Recorded On average, how many days per week do you engage in moderate to strenuous exercise (like a brisk walk)?5 days12/30/2024On average, how many minutes do you engage in exercise at this level?30 min12/30/2024Hunger Vital SignAnswerDate RecordedWithin the past 12 months, you worried that your food would run out before you got the money to buymore.Never true12/31/2023Within the past 12 months, the food you [...] homeless or living in a snf (including now)?No12/31/2023Sex and Gender InformationValueDate RecordedSex Assigned at BirthNot on fileLegal SexMale 08/07/2022 7:16 PM EDTGender IdentityNot on fileSexual OrientationNot on file documented as of this encounter Progress Notes * Joi Zhang LPN - 03/21/2025 10:48 AM EDT Spoke with pt spouse fore outreach. Pts spouse shares that pt is doing well. She states that pt hadnephrology appt last week and his kidney function is unchanged which she and pt are happy about. She shares that pt is still getting monthly catheter changes at [facility] and that they are nolonger doing the irrigations. She thinks that it was possibly the cause of the pts severe and increased UTIs back in September. She states that pts dementia symptoms seem to have improved as well. She shares that pt will tell her he sees something that is not real at night every once in while but that hecan tell that it is not real now. Pt has [facility] appt 03/29. She shares that pt had previouslydeclined a defibrillator placement, but her and daughter are going to try talking to pt again to see if they can not get him to change his mind since he is doing better mentally now. She states that pt is walking better now. He walks with cane most of the time, but uses walker for long distance. She states that pts weight is down to 109 lbs now and that the swelling in his legs has improved. She shares they pretty much look normal now. Pt is no longer doing cardiac rehab at [facility] but he is using elliptical at home daily and she states this has improved his leg swelling and strength a lot. She states that pt no longer gets HH that he was discharged. Pt continues to refuse to get hearing aide and that pt has refused to get polyp removed from colon. She hopes that he will change his mind,but states that he is stubborn. She shares that she encourages fluid/water intake daily. Pt sees Dr. Mcarthur about every 3 months for psychiatry. Next appt scheduled for 05/03. She shares that pt has been doing much better mentally. Pt spouse tells me that pt has been taking Pham 180mg daily for his allergies. Medication added to pt med list. Pt continues to take B/P daily and weigh self daily.B/P's have been good one reading from business mail entry clerk office was 108/70. At home 115/79. Pts spouse shares she thinks B/P cuff at home does not work correctly. She states they just purchased it, it is an arm B/P cuff. However, she states that when at Dr's offices and when HH nurse was coming they would get lower readings. She shares it is just a little higher though. Pts spouse sates she is qglad that pt is doing better now. Denies any needs or concerns at this time and pt has appt scheduled to see PCP 05/10 documented in this encounter Plan of Treatment DateTypeDepartmentCare Team (Latest Contact Info)Nesgtzjisgi87/16/2025 2:00 PM ESTOffice Visit [facility] [address] [facility] [address] [place] [address] Stanley Toledo MD 112 [facility] 100 [place] [address] documented as of this encounter Visit Diagnoses Diagnosis Stage 3b chronic kidney disease ([facility]) 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 disturbance, psychotic disturbance, mood disturbance, or anxiety ([facility]) documented in this encounter Additional Health Concerns AssessmentNoted TimePHQ-9 Depression Total Score: 2:00 PM ESTA fall risk assessment has been completed for the lkidlaz8112/31/2023 8:54 AM EDT documented as of this encounter Care Teams Team MemberRelationshipSpecialtyStart DateEnd Date Stanley Toledo MD [address] [place] [address] PCP - [facility]10/17/22 Stanley Toledo MD [address] [place] [address] PCP - GeneralFamily Medicine11/20/22 Joi Zhang LPN [address] [place] [address] 08/26/24documented as of this encounter
--- OUTSIDE RECORDS SUMMARY | 2025-03-22 11:22 | XMS_ITS | Encounter Summary ---
Author Organization [facility] Address [address] [place] [address] Care Team Providers Care Entry Level Machine Operator Name Role Phone Stanley Toledo MD Unavailable [phone] Stanley Toledo MD Primary Care Provider + [phone] Joi Zhang LPN Unavailable Encounter Details DateTypeDepartmentCare Team (Latest Contact Info)Miskhpfxoma56/21/2025Orders Only [facility] [address] [address] [place], [place] Social History Tobacco UseTypesPacks/DayYears UsedDateSmoking Tobacco: FormerCigarettes0.561.2 Started: 12/31/1963Smokeless Tobacco: NeverAlcohol UseStandard Drinks/Week CommentsNever0 (1 standard drink = 0.6 oz pure alcohol)B1300 Health Literacy AnswerDate RecordedHow often do you need to have someone help you when you read instructions, pamphlets, or other written material from your doctor or pharmacy? Mjywca3812/30/2024Humiliation, Afraid, Rape, and Kick questionnaireAnswerDate RecordedWithin the [...] times a week12/31/2023How often do you attend adventism or rastafari services?Never12/31/2023o you belong to any clubs or organizations such as adventism groups, unions, fraElimi or athletic groups, or school groups?No12/31/2023How often do you attend meetings of the clubs or organizations you belong to?Never12/31/2023re you , , , , never , or living with a partner?Cglksuj7112/31/2023 AUDIT-CAnswerDate RecordedQ1: How often do you have [...] RecordedPatient Health Questionnaire-2 Score0 05/13/2024[facility] of Occupational Health - Occupational Stress QuestionnaireAnswerDate RecordedDo you feel stress - tense, restless, nervous, or anxious, or unable to sleep at night because yourmind is troubled all the time - these days?Only a rgfpiq8612/30/2024Exercise Vital SignAnswerDate Recorded On average, how many [...] homeless or living in a usp (including now)?No12/31/2023Sex and Gender InformationValueDate RecordedSex Assigned at BirthNot on fileLegal SexMale 08/07/2022 7:16 PM EDTGender IdentityNot on fileSexual OrientationNot on file documented as of this encounter Plan of Treatment DateTypeDepartmentCare Team (Latest Contact Info)Uecjpfyhgch31/16/2025 2:00 PM ESTOffice Visit [facility] [address] [place] [address] Stanley Toledo MD [address] [place] [address] documented as of this encounter Visit Diagnoses Not on filedocumented in this encounter Additional Health Concerns AssessmentNoted TimePHQ-9 Depression Total Score: 2:00 PM ESTA fall risk assessment has been completed for the elrptkk8212/31/2023 8:54 AM EDT documented as of this encounter Care Teams Team MemberRelationshipSpecialtyStart DateEnd Date Stanley Toledo MD [address] [place] [address] PCP - [facility]10/17/22 Stanley Toledo MD [address] [place] [address] PCP - GeneralFamily Medicine11/20/22 Joi Zhang LPN [address] [place] [address] 08/26/24documented as of this encounter
--- OUTSIDE RECORDS SUMMARY | 2025-03-22 11:22 | XMS_ITS | Encounter Summary ---
Author Organization [facility] Address [address] [place] [address] Care Team Providers Care Art Gilder Name Role Phone Stanley Toledo MD Unavailable [phone] Stanley Toledo MD Primary Care Provider + [phone] Dora Santiago RN FAMILY Unavailable Vicente Joi RN FAMILY Unavailable Encounter Details DateTypeDepartmentCare Team (Latest Contact Info)Qlckuougrgd13/02/2024Clinisync Result Encounter [facility] External Department Unsolicited Provider, Generic External Data Social History Tobacco UseTypesPacks/DayYears UsedDateSmoking Tobacco: FormerCigarettes0.561.2 Started: 12/31/1963Smokeless Tobacco: NeverAlcohol UseStandard Drinks/Week CommentsNever0 (1 standard drink = 0.6 oz pure alcohol)B1300 Health Literacy AnswerDate RecordedHow often do you need to have someone help you when you read instructions, pamphlets, or other written material from your doctor or pharmacy? Eairgl1112/30/2024Humiliation, Afraid, Rape, and Kick questionnaireAnswerDate RecordedWithin the [...] times a week12/31/2023How often do you attend confucianism or nondenominational services?Never12/31/2023o you belong to any clubs or organizations such as confucianism groups, unions, fraZiippi or athletic groups, or school groups?No12/31/2023How often do you attend meetings of the clubs or organizations you belong to?Never12/31/2023re you , , , , never , or living with a partner?Hbhrovk4912/31/2023 AUDIT-CAnswerDate RecordedQ1: How often do you have [...] at all 12/31/2023HQ-2AnswerDate RecordedPatient Health Questionnaire-2 Score0 05/13/2024[facility] [place] of Occupational Health - Occupational Stress QuestionnaireAnswerDate RecordedDo you feel stress - tense, restless, nervous, or anxious, or unable to sleep at night because yourmind is troubled all the time - these days?Only a korxid8412/30/2024Exercise Vital SignAnswerDate Recorded On average, how many [...] 2:00 PM Ruby August, MAPatient Health Questionnaire-2 Ahrzz59207/14/2023 2:00 PM Betty Beltran, DUSTY * QuestionAnswerDate [...] all05/13/2024 2:00 PM JENIFFERAugust, MAPatient Health Questionnaire-9 Fdnbu72307/14/2023 2:00 PM RubyAugust, [place] documented as of this encounter Plan of Treatment DateTypeDepartmentCare Team (Latest Contact Info)Ksnaiyhrikr08/16/2025 2:00 PM ESTOffice Visit [facility] [address] [place] [address] [place] [address] Stanley Toledo MD [address] [place] [address] documented as of this encounter Procedures Procedure NamePriorityDate/TimeAssociated NapojjsscGtfbhdinONM75/02/2024 12:19 PM EST documented in this encounter Results * ITP (04/26/2024 12:19 PM EST)Anatomical RegionLateralityModalityOtherSpecimen (Source)Anatomical Location / LateralityCollection Method / VolumeCollection TimeReceived Time04/26/2024 12:19 PM EST Narrative 04/27/2024 8:20 PM EST [facility] ?[address] ? [place] [address] ?Cardiac Rehab Report ? Signed ? Patient: ALEX GRAJEDA ?MR#: [id number] ?? : 1945 ?Acct:[id number] ?? Age/Sex: 78 / M ?ADM Date: 04/26/24 ?? Loc: CR ? Attending Dr: MAGDY AL ? Ordering Physician: Arnol Garnica D.O. ?? Date of Service: 04/26/24 ?? Procedure(s): ITP ?? Accession Number(s): [id number] ? cc: ?[facility] ? Test Date: ?2024-04-26 ?? Pat Name: ? ALEX GRAJEDA ? Department: ? Room: ? - ?? Gender: ? Male ? Staff Air Tactical Officer: ? : ?1945 ? Requested By: ARNOL ??BALL ?? Order Number: [id number] ?Reading MD: ?? ARNOL ??BALL ? Interpretive Statements ?? Session Date: ? Electronically Signed On 04-27-2024 20:20:06 EST by ARNOL ??BALL ? Dictated By: ?Ball,Arnol D.O. ? Signed By: ?04/27/24 2020 ?04/27/24 2020 ? DD/ 1219 ? TD/TT: ? Stock Control Supervisor: Procedure Note Radiology, RadiologistMD - 04/27/2024 [place] [address] Cardiac Rehab Report Signed Patient: ALEX GRAJEDA R#: [id number] : 1945cct:[id number] Age/Sex: 78 / MADM Date: 04/26/24 Loc: CR Attending Dr: MAGDY AL Ordering Physician: Arnol Garnica D.O. Date of Service: 04/26/24 Procedure(s): ITP Accession Number(s): [id number] cc: [facility] Test Date: 2024-04-26 Pat Name: ALEX GRAJEDA Department: Room: - Gender: Male Staff Air Tactical Officer: : 1945 Requested By: ARNOL GARNICA Order Number: [id number] Silverio CASILLAS: ARNOL GARNICA Interpretive Statements Session Date: Electronically Signed On 04-27-2024 20:20:06 EST by ARNOL GARNICA Dictated By: Arnol Garnica D.O. Signed By:04/27/24201904/27/242019 DD/ 121 TD/TT: Stock Control Supervisor: Authorizing ProviderResult TypeResult StatusGeneric External Data Provider [facility] IMAGINGFinal Result documented in this encounter Visit Diagnoses Not on filedocumented in this encounter Additional Health Concerns AssessmentNoted TimePHQ-9 Depression Total Score: 1:00 PM ESTA fall risk assessment has been completed for the jpqmehv8412/31/2023 8:54 AM EDT documented as of this encounter Care Teams Team MemberRelationshipSpecialtyStart DateEnd Date Stanley Toledo MD [address] [place] [address] PCP - [facility]10/17/22 Stanley Toledo MD [address] [place] [address] PCP - GeneralFamily Medicine11/20/22 Dora Santiago LPN [address] [place] [address] Licensed Practical NurseFamily Medicine Joi Zhang LPN [address] [place] [address] 08/26/24documented as of this encounter
--- OUTSIDE RECORDS SUMMARY | 2025-03-22 11:22 | XMS_ITS | Encounter Summary ---
Author Organization [facility] Address [address] [place] [address] Care Team Providers Care Industrial Gas Production Operator Name Role Phone Stanley Toledo MD Unavailable [phone] Stanley Toledo MD Primary Care Provider + [phone] Joi Zhang LPN Unavailable Encounter Details DateTypeDepartmentCare Team (Latest Contact Info)Ywmvhxpbjvu62/24/2025linisync Result Encounter [facility] External Department Unsolicited Provider, Generic External Data Social History Tobacco UseTypesPacks/DayYears UsedDateSmoking Tobacco: FormerCigarettes0.561.2 Started: 12/31/1963Smokeless Tobacco: NeverAlcohol UseStandard Drinks/Week CommentsNever0 (1 standard drink = 0.6 oz pure alcohol)B1300 Health Literacy AnswerDate RecordedHow often do you need to have someone help you when you read instructions, pamphlets, or other written material from your doctor or pharmacy? Blergs8912/30/2024Humiliation, Afraid, Rape, and Kick questionnaireAnswerDate RecordedWithin the [...] week12/31/2023How often do you attend advent or mormonism services?Never12/31/2023o you belong to any clubs or organizations such as advent groups, unions, fraternal or athletic groups, or school groups?No12/31/2023How often do you attend meetings of the clubs or organizations you belong to?Never12/31/2023re you , , , , never , or living with a partner?Jradkvb2012/31/2023 AUDIT-CAnswerDate RecordedQ1: How often do you have [...] at all 12/31/2023HQ-2AnswerDate RecordedPatient Health Questionnaire-2 Score0 05/13/2024[facility] [place] of Occupational Health - Occupational Stress QuestionnaireAnswerDate RecordedDo you feel stress - tense, restless, nervous, or anxious, or unable to sleep at night because yourmind is troubled all the time - these days?Only a ffwioa7112/30/2024Exercise Vital SignAnswerDate Recorded On average, how many [...] homeless or living in a mcc (including now)?No12/31/2023Sex and Gender InformationValueDate RecordedSex Assigned at BirthNot on fileLegal SexMale 08/07/2022 7:16 PM EDTGender IdentityNot on fileSexual OrientationNot on file documented as of this encounter Plan of Treatment DateTypeDepartmentCare Team (Latest Contact Info)Prlsdfvqaqx13/16/2025 2:00 PM ESTOffice Visit [facility] [place] [address] [facility] [address] [facility] 100 [place] [address] Stanley Toledo MD 112 [facility] 100 [place] [address] documented as of this encounter Procedures Procedure NamePriorityDate/TimeAssociated DiagnosisCommentsCCF ASTRoutine 03/18/2025 8:16 AM EDT ALL THYROID STIM IMHCJYDQxgmpnq57/24/2025 8:16 AM EDT ALL LIPID PROFILE (FASTING)Wnjbdlx3003/18/2025 8:16 AM EDT ALL BASIC METABOLIC UUBPTBjltcgj96/24/2025 8:16 AM EDT documented in this encounter Results * (ABNORMAL) ALL THYROID STIM HORMONE (03/18/2025 8:16 AM EDT)ComponentValueRef RangeTest MethodAnalysis TimePerformed AtPathologist SignatureTHYROID STIMULATING CZWNRMD10.644(H)0.358 - 3.740 uIU/mLTBHSpecimen (Source)Anatomical Location / LateralityCollection Method / VolumeCollection TimeReceived Time 03/18/2025 8:16 AM EDT1 8:17 AM EDT Narrative [facility] - 03/18/2025 10:29 AM EDT Authorizing ProviderResult TypeResult StatusGeneric External Data Provider CLINISYNCFinal ResultPerforming OrganizationAddressCity/State/ZIP CodePhone Number [facility] * (ABNORMAL) ALL LIPID PROFILE (FASTING) (03/18/2025 8:16 AM EDT)ComponentValue Ref RangeTest MethodAnalysis TimePerformed AtPathologist Signature OHZMOGTWQACOP10<=150 mg/dYMXTFRXAXNRKRCA59<=200 mg/dLTBHHDL ADQKFBDHRGI55(L)40 - 60 mg/dLTBHComment: > or =60 mg/dl - LOW CARDIOVASCULAR RISK <40 mg/dl - HIGH CARDIOVASCULAR RISK LDL CHOLESTEROL OGIOZCWKKU44.0mg/dLTBHComment: <100 mg/dl OPTIMAL 100-129 mg/dl NEAR OR ABOVE OPTIMAL 130-159 mg/dl BORDERLINE HIGH 160-189 mg/dl HIGH >190 mg/dl VERY HIGH VLDL JJDUNOBBHAN96.8mg/dLTBHCHOL HDL RATIO2.2TBHComment: 3.3 - 4.4 ?? LOW RISK 4.4 - 7.1 ?? AVERAGE RISK 7.1 - 11.0 ??MODERATE RISK >11.0 HIGH RISK Specimen (Source)Anatomical Location / LateralityCollection Method / Volume Collection TimeReceived Time03/18/2025 8:16 AM EDT1 8:17 AM EDT Narrative [facility] - 03/18/2025 10:29 AM EDT Authorizing ProviderResult TypeResult StatusGeneric External Data Provider CLINISYNCFinal ResultPerforming OrganizationAddressty/State/ZIP CodePhone Number [facility] * [facility] AST (03/18/2025 8:16 AM EDT)ComponentValueRef RangeTest MethodAnalysis TimePerformed AtPathologist SignatureASPARTATE AMINO LSHWTDVJBLS9948 - 37 U/L TBHSpecimen (Source)Anatomical Location / LateralityCollection Method / Volume Collection TimeReceived Time03/18/2025 8:16 AM EDT1 8:17 AM EDT Narrative [facility] - 03/18/2025 10:29 AM EDT Authorizing ProviderResult TypeResult StatusGeneric External Data Provider CLINISYNCFinal ResultPerforming OrganizationAddressCity/State/ZIP CodePhone Number THOMAS DAVISON * (ABNORMAL) ALL BASIC METABOLIC PANEL (03/18/2025 8:16 AM EDT)ComponentValueRef RangeTest MethodAnalysis TimePerformed AtPathologist XwvvjsqsmSAOMNF772(H)136 - 145 mmol/LTBHPOTASSIUM3.93.5 - 5.1 mmol/LNGKBDTIMWGU71098 - 107 mmol/LTBH CARBON NNUWAMC68.521.0 - 32.0 mmol/LTBHANION GAP16.0VSECPSDHRR0808 - 106 mg/dL TBHBLOOD UREA ILWYHUCF10.0(H)7.0 - 18.0 mg/dLTBHCREATININE1.80(H)0.70 - 1.30 mg/dLTBHTBH EGFR-AF QBYVBLIR14(L)>=60 mL/min/1.73m 2TBHTBH EGFR-NON AF KXYMJQGF36(L)>=60 mL/min/1.73m 2TBHBUN CREATININE RATIO14.3WQGTTZTQDT8.88.5 - 10.1 mg/dLTBHSpecimen (Source)Anatomical Location / LateralityCollection Method / VolumeCollection TimeReceived Time03/18/2025 8:16 AM EDT1 8:17 AM EDT Narrative [facility] - 03/18/2025 10:29 AM EDT Authorizing ProviderResult TypeResult StatusGeneric External Data Provider CLINISYNCFinal ResultPerforming OrganizationAddressCity/State/ZIP CodePhone Number THOMAS DAVISON documented in this encounter Visit Diagnoses Not on filedocumented in this encounter Additional Health Concerns AssessmentNoted TimePHQ-9 Depression Total Score: 2:00 PM ESTA fall risk assessment has been completed for the wnlzntw6912/31/2023 8:54 AM EDT documented as of this encounter Care Teams Team MemberRelationshipSpecialtyStart DateEnd Date Stanley Toledo MD [address] [place] [address] PCP - [facility]10/17/22 Stanley Toledo MD [address] [place] [address] [facility] Joi Zhang LPN [address] [place] [address] 08/26/24documented as of this encounter
--- OUTSIDE RECORDS SUMMARY | 2025-03-22 11:22 | XMS_ITS | Encounter Summary ---
Author Organization [facility] Address [address] [place] [address] Care Team Providers Care Bag Machine Helper Name Role Phone Stanley Toledo MD Unavailable [phone] Stanley Toledo MD Primary Care Provider + [phone] Dora Santiago STANDARDS ANALYST Unavailable Vicente Joi STANDARDS ANALYST Unavailable Encounter Details DateTypeDepartmentCare Team (Latest Contact Info)Jpuotectxlg80/31/2024Clinisync Result Encounter [facility] External Department Unsolicited Provider, Generic External Data Social History Tobacco UseTypesPacks/DayYears UsedDateSmoking Tobacco: FormerCigarettes0.561.2 Started: 12/31/1963Smokeless Tobacco: NeverAlcohol UseStandard Drinks/Week CommentsNever0 (1 standard drink = 0.6 oz pure alcohol)B1300 Health Literacy AnswerDate RecordedHow often do you need to have someone help you when you read instructions, pamphlets, or other written material from your doctor or pharmacy? Ihycsu2412/30/2024Humiliation, Afraid, Rape, and Kick questionnaireAnswerDate RecordedWithin the [...] times a week12/31/2023How often do you attend confucianist or voodoo services?Never12/31/2023o you belong to any clubs or organizations such as confucianist groups, unions, fraVideoplaza or athletic groups, or school groups?No12/31/2023How often do you attend meetings of the clubs or organizations you belong to?Never12/31/2023re you , , , , never , or living with a partner?Bilskks7312/31/2023 AUDIT-CAnswerDate RecordedQ1: How often do you have [...] at all 12/31/2023HQ-2AnswerDate RecordedPatient Health Questionnaire-2 Score0 05/13/2024[facility] [place] [facility] - Occupational Stress QuestionnaireAnswerDate RecordedDo you feel stress - tense, restless, nervous, or anxious, or unable to sleep at night because yourmind is troubled all the time - these days?Only a vobftn7712/30/2024Exercise Vital SignAnswerDate Recorded On average, how many [...] were you homeless or living in a half-way (including now)?No12/31/2023Sex and Gender InformationValueDate RecordedSex Assigned at BirthNot on fileLegal SexMale 08/07/2022 7:16 PM EDTGender IdentityNot on fileSexual OrientationNot on file documented as of this encounter Plan of Treatment DateTypeDepartmentCare Team (Latest Contact Info)Zqyogkpnavy03/16/2025 2:00 PM ESTOffice Visit [facility] [address] [place] [address] Stanley Toledo MD [address] [place] [address] documented as of this encounter Procedures Procedure NamePriorityDate/TimeAssociated TgcelggdmFmmpzbtcXVU25/31/2024 7:54 AM EST documented in this encounter Results * ITP (05/25/2024 7:54 AM EST)Anatomical RegionLateralityModalityOtherSpecimen (Source)Anatomical Location / LateralityCollection Method / VolumeCollection TimeReceived Time05/25/2024 7:54 AM EST Narrative 05/26/2024 8:06 AM EST [facility] ?[address] ? [place] [address] ?Cardiac Rehab Report ? Signed ? Patient: GRAJEDA,ALEX H ?MR#: [id number] ?? : 1945 ?Acct:[id number] ?? Age/Sex: 78 / M ?ADM Date: 12/31/24 ?? Loc: CR ? Attending Dr: MAGDY AL ? Ordering Physician: Arnol Garnica D.O. ?? Date of Service: 05/25/24 ?? Procedure(s): ITP ?? Accession Number(s): [id number] ? cc: ?[facility] ? Test Date: ?2024-05-25 ?? Pat Name: ? ALEX GRAJEDA ? Department: ? Room: ? - ?? Gender: ? Male ? Bass Singer: ? : ?1945 ? Requested By: ARNOL ??BALL ?? Order Number: [id number] ?Reading MD: ?? ARNOL ??BALL ? Interpretive Statements ?? Session Date: ? Electronically Signed On 05-26-2024 8:06:21 EST by ARNOL ??BALL ? Dictated By: ?Arnol Garnica D.O. ? Signed By: ?05/26/24 0806 ?05/26/24 08 ? DD/ 0754 ? TD/TT: ? Almond Grinder: Procedure Note Radiology, Radiologist, MD - 05/26/2024 [place] [address] Cardiac Rehab Report Signed Patient: ALEX GRAJEDA R#: [id number] : 4Acct:[id number] Age/Sex: 78 / MADM Date: 05/25/24 Loc: CR Attending Dr: MAGDY AL Ordering Physician: Arnol Garnica D.O. Date of Service: 05/25/24 Procedure(s): ITP Accession Number(s): [id number] cc: [facility] Test Date: 2024-05-25 Pat Name: ALEX GRAJEDA Department: Room: - Gender: Male Bass Singer: : 1945 Requested By: ARNOL GARNICA Order Number: [id number] Silverio MD: ARNOL GARNICA Interpretive Statements Session Date: Electronically Signed On 05-26-2024 8:06:21 EST by ARNOL GARNICA Dictated By: Arnol Garnica D.O. Signed By:05/26/24 0806 05/26/24 08 DD/ 075 TD/TT: Almond Grinder: Authorizing ProviderResult TypeResult StatusGeneric External Data Provider CLINISYNC IMAGINGFinal Result documented in this encounter Visit Diagnoses Not on filedocumented in this encounter Additional Health Concerns AssessmentNoted TimePHQ-9 Depression Total Score: 2:00 PM ESTA fall risk assessment has been completed for the oblgcnj0512/31/2023 8:54 AM EDT documented as of this encounter Care Teams Team MemberRelationshipSpecialtyStart DateEnd Date Stanley Toledo MD [address] [place] [address] (Fax) PCP - ACO Reach10/17/22 Stanley Toledo MD [address] [place] [address] (Fax) PCP - GeneralFamily Medicine11/20/22 Dora Santiago LPN [address] [place] [address] Licensed Practical NurseFamily Medicine Joi Zhang LPN [address] [place] [address] 08/26/24documented as of this encounter
--- OUTSIDE RECORDS SUMMARY | 2025-03-22 11:22 | XMS_ITS | Encounter Summary ---
Author Organization [facility] Address [address] [place] [address] Phone Care Team Providers Care Commercial Estimator Name Role Phone Stanley Toledo MD Primary Care Provider Ruby Vickers MD Unavailable Encounter Details DateTypeDepartmentCare Team (Latest Contact Info)Ustbswhscya69/23/2025Telephone [address] [address] Elaine De Luna RN Social History Tobacco UseTypesPacks/DayYears UsedDateSmoking Tobacco: FormerCigarettes Smokeless Tobacco: NeverAlcohol UseStandard Drinks/WeekCommentsNever0 (1 standard drink = 0.6 oz pure alcohol)Sex and Gender InformationValueDate RecordedSex Assigned at BirthNot on fileLegal MyxFbge70/29/2022 5:17 PM EST Gender IdentityNot on fileSexual OrientationNot on filedocumented as of this encounter Miscellaneous Notes * Telephone Encounter - Elaine De Luna RN - 03/17/2025 10:19 AM EDT phones inquiring if we have received the results from PFT and CXR. Will obtain records from [facility] for chest xray. She is wanting to make sure everything is in chart for upcoming visit. documented in this encounter Plan of Treatment DateTypeDepartmentCare Team (Latest Contact Info)Wwpgdopkeho75/04/2025 11:00 AM ESTOffice Visit [address] [phone] Teo Stokes MD [address] [facility] [address], [address] [place], [place] [address] documented as of this encounter Visit Diagnoses Not on filedocumented in this encounter Additional Health Concerns AssessmentNoted TimeA fall risk assessment has been completed for the patient 09/10/2024 9:37 AM EDTdocumented as of this encounter Care Teams Team MemberRelationshipSpecialtyStart DateEnd Date Stanley Toledo MD [address] [place] [address] PCP - Vjgnmbs49/23/22 Ruby Vickers MD [address] [facility] Medical [facility], [address] [place] [address] CardiologistElectrophysiology10/04/24documented as of this encounter
--- OUTSIDE RECORDS SUMMARY | 2025-03-22 11:22 | XMS_ITS | Encounter Summary ---
Author Organization [facility] Address [address] [place] [address] Phone Care Team Providers Care Events Solutions Consultant Name Role Phone Stanley Toledo MD Primary Care Provider Ruby Vickers MD Unavailable Encounter Details DateTypeDepartmentCare Team (Latest Contact Info)Qgbrtaritgt63/24/2025Scanned Document [facility] [address] [place] [phone] Scanning, Generic Provider Social History Tobacco UseTypesPacks/DayYears UsedDateSmoking Tobacco: FormerCigarettes Smokeless Tobacco: NeverAlcohol UseStandard Drinks/WeekCommentsNever0 (1 standard drink = 0.6 oz pure alcohol)Sex and Gender InformationValueDate RecordedSex Assigned at BirthNot on fileLegal WsaHjvq39/29/2022 5:17 PM EST Gender IdentityNot on fileSexual OrientationNot on filedocumented as of this encounter Plan of Treatment DateTypeDepartmentCare Team (Latest Contact Info)Vpfjrcdlkvd07/04/2025 11:00 AM ESTOffice Visit [facility] [address] [facility] [address] [place] [address] Teo Stokes MD [address] [facility] [address] [place] [address] documented as of this encounter Procedures Procedure NamePriorityDate/TimeAssociated DiagnosisCommentsOUTSIDE LAB SCAN 03/18/2025 documented in this encounter Results * OUTSIDE LAB SCAN (03/18/2025) Narrative 03/18/2025 Ordered by an unspecified provider. Authorizing ProviderResult TypeResult StatusGeneric Provider ScanningOUTSIDE SCANFinal Result documented in this encounter Visit Diagnoses Not on filedocumented in this encounter Additional Health Concerns AssessmentNoted TimeA fall risk assessment has been completed for the patient 09/10/2024 9:37 AM EDTdocumented as of this encounter Care Teams Team MemberRelationshipSpecialtyStart DateEnd Date Stanley Toledo MD [address] [place] [address] PCP - Zbudgqh31/23/22 Ruby Vickers MD [address] [facility] Medical Office [address], [address] [place] [address] CardiologistElectrophysiology10/04/24documented as of this encounter
--- OUTSIDE RECORDS SUMMARY | 2025-03-22 11:22 | XMS_ITS | Clinical Summary ---
Author Organization [facility] Address [address] [place] [address] Phone Care Team Providers Care Manager Shipping Name Role Phone Stanley Toledo MD Primary Care Provider + [phone] Ruby Vickers MD Unavailable Allergies No known [...] tablet daily in the evening. [facility]. 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 pectorisTake 1 tablet (75 [...] 25.0-25.9, adult10/08/2024 Encounter for medication review and srgjudzmlb68/16/2025Encounter to discuss test qfhispf7510/08/2024Encounter to discuss treatment vvffbbn6110/08/2024Encounter to establish care with new jriptqeh21/16/2025Ventricular ectopy/arrhythmia, pre- operative cardiovascular exam10/08/2024S/P PTCA (percutaneous transluminal coronary angioplasty)02/10/2024oronary artery disease involving greenville coronary artery of greenville heart without angina blbiilpa47/17/2024aroxysmal atrial jeauohuaombj04/17/2024Former jvjcku9302/10/2024High risk medication use02/10/2024 STEMI (ST elevation myocardial infarction)02/10/2024ardiomyopathy, ischemic 1891Zlltkubasdaf46/18/2024Essential ittrnpisynrq27/18/2024Stage 3a chronic kidney huffipt2905/12/2023bdominal aortic aneurysm (AAA) greater than 5.5 cm in diameter in male11/11/2022Urinary bladder iackuili75/19/2023Transient cerebral ischemic gttvqb5805/16/2022 Resolved Problems ProblemNoted DateDiagnosed DateResolved DateBMI 26.0-26.9,adult02/10/2024 10/08/2024 Encounters DateTypeDepartmentCare BabuGdtktyssfae65/24/2025Scanned Document [facility] [address] [place] [address] Scanning, Generic Provider 03/17/2025Telephone [address] [place] [address] Elaine De Luna RN 02/28/2025Scanned Document [facility] [address] [place] [address] Scanning, Generic Provider 02/02/2025Scanned Document [facility] [address] [place] [address] Scanning, Generic Provider 01/28/2025[facility] [address] [facility] [address] [place] [address] Teo Stokes MD Nhsxijfhinc79/05/[address] [facility] [address] [place] [address] Constantin Pruett, Hyperthyroidism (Primary Dx)01/02/2025[place] [address] [place] [address] Teo Stokes MD Coronary artery disease involving greenville coronary artery of greenville heart without angina pectorisfrom Last 3 Months Immunizations ImmunizationAdministration DatesNext DueFlu vaccine (IIV4), preservative free *Check age/dose*02/22/2021Flu vaccine, quadrivalent, high-dose, preservative free, age 65y+ (FLUZONE)03/06/2022Flu vaccine, quadrivalent, recombinant, preservative free, adult (FLUBLOK)02/22/2020Flu vaccine, trivalent, preservative free, HIGH-DOSE, age 65y+ (Fluzone)05/20/2022,02/14/2021Influenza, Seasonal, Quadrivalent, Exwdwlzzwv31/01/2023Influenza, seasonal, dwyiilzggo94/22/2022 Pneumococcal polysaccharide vaccine, 23-valent, age 2 years and older (PNEUMOVAX 23)04/23/2021 Family History Medical HistoryRelationNameCommentsBrain cancerFatherbowel obstructionMother RelationNameStatusCommentsFatherMother Social History Tobacco UseTypesPacks/DayYears UsedDateSmoking Tobacco: FormerCigarettes Smokeless Tobacco: Never Tobacco Cessation:Counseling Given: Not Answered Alcohol UseStandard Drinks/WeekCommentsNever0 (1 standard drink = 0.6 oz pure alcohol)Sex and Gender InformationValueDate RecordedSex Assigned at BirthNot on fileLegal PbeJjok95/29/2022 5:17 PM ESTGender IdentityNot on fileSexual OrientationNot on file Last Filed Vital Signs Vital SignReadingTime TakenCommentsBlood Qucytjxc50/5805 2:43 PM EDT Xxqnd4144 2:43 PM EDTTemperature--Respiratory Rate--Oxygen Saturation-- Inhaled Oxygen Concentration--Zaisqo46.7 kg (200 lb)10/08/2024 2:43 PM EDTHeight 188 cm (6' 2 )10/08/2024 2:43 PM EDTBody Mass Index25.68010/08/2024 2:43 PM EDT Plan of Treatment DateTypeDepartmentCare Team (Latest Contact Info)Ykbpjprgtfi50/04/2025 11:00 AM ESTOffice Visit [facility] [address] [facility] [address] [place] [address] Teo Stokes MD 703 [facility] 2, [address] [place] [address] Health MaintenanceDue DateLast DoneCommentsCreatinine Level1943Lipid Panel 1945Medicare Annual Wellness Visit (AWV)4Potassium Level 4Diabetes Qtyzterae60/08/1962CKD: Urine Protein Qwyrourff05/08/1963 DTaP/Tdap/Td Vaccines (1 - Tdap)11/30/1965Zoster Vaccines (1 of 2)11/30/1993 Influenza Vaccine (#1)/, 03/26/2023, 05/20/2022, Additional history existsCOVID-19 Vaccine ( - season), 02/16/2023, 03/29/2022, Additional history hyxjbeIacjdlcrvjjftc72/14/2026 08/06/2024, 01/16/2024, 05/16/2022TSH Level605/02/2025Pneumococcal ZzzglhyMauntqxel06/03/2024, 04/23/2021SV High Risk: (Elderly (60+) or Population)Aksmpzxxa42/31/2025HIB VaccinesAged OutNo longer eligible based on patient's [...] topic Procedures Procedure NamePriorityDate/TimeAssociated DiagnosisCommentsOUTSIDE LAB SCAN 03/18/2025 OUTSIDE LAB SCAN02/02/2025 TRANSTHORACIC ECHO (TTE) HYDXALODxzltlo98/14/2025 12:[address] elevation myocardial infarction (STEMI), unspecified artery (Multi) Cardiomyopathy, ischemic 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 Narrative 03/18/2025 Ordered by an unspecified provider. Authorizing ProviderResult TypeResult StatusGeneric Provider ScanningOUTSIDE SCANFinal Result * TRANSTHORACIC ECHO (TTE) LIMITED (08/06/2024 12:04 PM EDT)ComponentValueRef RangeTest MethodAnalysis TimePerformed AtPathologist SignatureAV mn nube5heRg SYNGOAV pk vel1.38m/sSYNGOLV Biplane EF38%SYNGOLVOT diam2.23cmSYNGOMV E/A ratio0.70SYNGOMV avg E/e' ratio15.11SYNGOLV EF33%SYNGORV free wall pk S'12.40 cm/vGAYLRFHMK09.3mxSzYUMIMTGCJm9.46cmSYNGOAortic Valve Area by Continuity of Peak Velocity1.73uu5FTEQZBY pk mvdp9ymJvVABHDSprmmb Valve Area by Continuity of VTI2.36zd7DMPCPCW A4C EF31.7SYNGOSpecimen (Source)Anatomical Location / LateralityCollection Method / VolumeCollection TimeReceived Time08/06/2024 10:43 AM EDT Narrative SYNGO - 08/11/2024 5:54 PM EDT ?[address], Suite [facility], [place] [address] ? TRANSTHORACIC ECHOCARDIOGRAM REPORT Patient Name: ? ALEX GRAJEDA ?Reading Physician: ?[id number] Mally ?Brian MD Study Date: ? 08/06/2024 ? Ordering Provider: ?[id number] CURRAN M ?STOKES MRN/PID: ?[id number] ?Fellow: Accession#: ? [id number] ?Nurse: Date of /Age: ??1945 / 78 years Costume Shop Manager: ?Marlyn Castro ?RDCS, RT(R), ?RDMS, RVT Gender Assigned at ??M ? Additional Staff: : Height: ? 187.96 cm ? Admit Date: Weight: ? 92.53 kg ?Admission Status: ? Outpatient BSA / BMI: ?2.19 m2 / 26.19 ? Department Location: ??[facility] Heart ?kg/m2 ? 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 infarction of unspecified site-I21.3 Indication: ?STEMI CPT Codes: ? Echo Limited-57318 Patient History: Smoker: ?Former. Pertinent History: A-Fib, [...] m/s ??(0.6-0.9m/s) PV Max PG: ?1.6 mmHg [id number] Mally Torres MD Electronically signed on 08/11/2024 at 5:54:03 PM Final Procedure Note Mally Torres MD - 08/11/[address], [address] [place] [address] TRANSTHORACIC ECHOCARDIOGRAM REPORT Patient Name: ALEX Sawyer Physician: [id number] Rosales Study Date: 08/06/2024 Ordering Provider: [id number] ALYSSIA STOKES MRN/PID: [id number] Fellow: Nurse: Date of /Age: 7 1945 / 78 years Costume Shop Manager: Zeke YOO,RT(R), RD, RVT Gender Assigned at Additional Staff: : Height: 187.96 cm Admit Date: Weight: 92.53 kg Admission Status: Outpatient BSA / BMI: 2.19 m2 / 26.19 Department Location: [facility] kg/m2 [place] Blood Pressure: 98 /64 mmHg Study Type: TRANSTHORACIC ECHO (TTE) LIMITED Diagnosis/ICD: Atherosclerotic heart disease of greenville coronary arterywithout angina pectoris-I25.10; ST elevation (STEMI) myocardial infarction of unspecified site-I21.3 Indication: STEMI CPT Codes: Echo Limited-23086 Patient History: Smoker: Former. Pertinent History: A-Fib, [...] 0.6 m/s (0.6-0.9m/s) PV Max P.6 mmHg [id number] Mally Torres MD Electronically signed on 08/11/2024 at 5:54:03 PM Final Authorizing ProviderResult TypeResult StatusTeo Stokes [facility] ECHO PROCEDURESFinal ResultPerforming OrganizationAddressCity/State/ZIP CodePhone Number SYNGO from Last 3 Months or Most Recently Relevant to Health Maintenance Insurance Care Teams Team MemberRelationshipSpecialtyStart DateEnd Stanley Toledo MD [address] [place] [phone] PCP - Bsubfbs90/23/22 Ruby Vickers MD [address] [facility] [address], [address] [place] [address] CardiologistElectrophysiology10/04/24
--- OUTSIDE RECORDS SUMMARY | 2025-03-22 11:22 | XMS_ITS | Encounter Summary ---
Author Organization [facility] Address [address] [place] [address] Care Team Providers Care Associate Professor Of Biology Name Role Phone Stanley Toledo MD Unavailable [phone] Stanley Toledo MD Primary Care Provider + [phone] Dora Santiago MATERIAL HANDLING CREW SUPERVISOR Unavailable Vicente Joi MATERIAL HANDLING CREW SUPERVISOR Unavailable Encounter Details DateTypeDepartmentCare Team (Latest Contact Info)Lciycxsoxim60/06/2024Clinisync Result Encounter [facility] External Department Unsolicited Provider, Generic External Data Social History Tobacco UseTypesPacks/DayYears UsedDateSmoking Tobacco: FormerCigarettes0.561.2 Started: 12/31/1963Smokeless Tobacco: NeverAlcohol UseStandard Drinks/Week CommentsNever0 (1 standard drink = 0.6 oz pure alcohol)B1300 Health Literacy AnswerDate RecordedHow often do you need to have someone help you when you read instructions, pamphlets, or other written material from your doctor or pharmacy? Mutjgv4212/30/2024Humiliation, Afraid, Rape, and Kick questionnaireAnswerDate RecordedWithin the [...] week12/31/2023How often do you attend confucianism or christian services?Never12/31/2023o you belong to any clubs or organizations such as confucianism groups, unions, fra[employer]o [employer] or athletic groups, or school groups?No12/31/2023How often do you attend meetings of the clubs or organizations you belong to?Never12/31/2023re you , , , , never , or living with a partner?Hwrqfiy4212/31/2023 AUDIT-CAnswerDate RecordedQ1: How often do you have [...] at all 12/31/2023HQ-2AnswerDate RecordedPatient Health Questionnaire-2 Score0 05/13/2024[facility] [place] [facility] - Occupational Stress QuestionnaireAnswerDate RecordedDo you feel stress - tense, restless, nervous, or anxious, or unable to sleep at night because yourmind is troubled all the time - these days?Only a znjcke2412/30/2024Exercise Vital SignAnswerDate Recorded On average, how many [...] 2:00 PM Ruby August, MAPatient Health Questionnaire-2 Blhbg65207/14/2023 2:00 PM Betty Beltran, DUSTY * QuestionAnswerDate [...] your family downNot at all05/13/2024 2:00 PM Tiarraaugust, MATrouble concentrating on things, such as reading the newspaper or watching televisionNot at all05/13/2024 2:00 PM August, MAMoving or speaking so slowly that other people could have noticed? Or the opposite - being so fidgety or restless that you have been moving around a lot more than usual.Not at all05/13/2024 2:00 PM Abelaugust, MAThoughts that you would be better off or hurting yourself in some wayNot at all05/13/2024 2:00 PM JENIFFERAugust, MAPatient Health Questionnaire-9 Nvyor25307/14/2023 2:00 PM Ruby, August, MA documented as of this encounter Plan of Treatment DateTypeDepartmentCare Team (Latest Contact Info)Pxsdricaeio12/16/2025 2:00 PM ESTOffice Visit [facility] [address] [place] [address] [place] [address] Stanley Toledo MD [address] [place] [address] documented as of this encounter Procedures Procedure NamePriorityDate/TimeAssociated HlznksaglWschvxsnSSF44/06/2024 12:39 PM EST documented in this encounter Results * ITP (03/31/2024 12:39 PM EST)Anatomical RegionLateralityModalityOtherSpecimen (Source)Anatomical Location / LateralityCollection Method / VolumeCollection TimeReceived Time03/31/2024 12:39 PM EST Narrative 03/31/2024 8:[address] [facility] ?[address] ? [place] [address] ?Cardiac Rehab Report ? Signed ? Patient: ALEX GRAJEDA ?MR#: [id number] ?? : 1945 ?Acct:[id number] ?? Age/Sex: 78 / M ?ADM Date: 03/31/24 ?? Loc: CR ? Attending Dr: MAGDY AL ? Ordering Physician: Arnol Garnica D.O. ?? Date of Service: 03/31/24 ?? Procedure(s): ITP ?? Accession Number(s): [id number] ? cc: ?[facility] ? Test Date: ?2024-03-31 ?? Pat Name: ? ALEX GRAJEDA ? Department: ? Room: ? - ?? Gender: ? Male ? Senior Cost Analyst: ? : ?1945 ? Requested By: ARNOL ??BALL ?? Order Number: [id number] ?Reading MD: ?? ARNOL ??BALL ? Interpretive Statements ?? Session Date: ? Electronically Signed On 03-31-2024 20:54:52 EST by ARNOL ??BALL ? Dictated By: ?Ball,Arnol D.O. ? Signed By: ?03/31/242054 ?03/31/242054 ? DD/ 1239 ? TD/TT: ? Mushroom Sorter Grader: Procedure Note Radiology, Radiologist, - 03/31/2024 [place] [address] Cardiac Rehab Report Signed Patient: ALEX GRAJEDA R#: [id number] : 1945cct:[id number] Age/Sex: 78 / MADM Date: 03/31/24 Loc: CR Attending Dr: MAGDY AL Ordering Physician: Arnol Garnica D.O. Date of Service: 03/31/24 Procedure(s): ITP Accession Number(s): [id number] cc: [facility] Test Date: 2024-03-31 Pat Name: ALEX GRAJEDA Department: Room: - Gender: Male Senior Cost Analyst: : 1945 Requested By: ARNOL GARNICA Order Number: [id number] Silverio MD: ARNOL GARNICA Interpretive Statements Session Date: Electronically Signed On 03-31-2024 20:54:52 EST by ARNOL GARNICA Dictated By: Arnol Garnica D.O. Signed By:03/31/24205403/31/242054 DD/ 1239 TD/TT: Mushroom Sorter Grader: Authorizing ProviderResult TypeResult StatusGeneric External Data Provider [facility] IMAGINGFinal Result documented in this encounter Visit Diagnoses Not on filedocumented in this encounter Additional Health Concerns AssessmentNoted TimePHQ-9 Depression Total Score: 1:00 PM ESTA fall risk assessment has been completed for the ngamzls6412/31/2023 8:54 AM EDT documented as of this encounter Care Teams Team MemberRelationshipSpecialtyStart DateEnd Date Stanley Toledo MD [address] [place] [address] (Fax) PCP - ACO Reach10/17/22 Stanley Toledo MD [address] [place] [address] PCP - GeneralFamily Medicine11/20/22 Dora Santiago LPN [address] [place] [address] Licensed Practical NurseFamily Medicine Joi Zhang LPN [address] [place] [address] 08/26/24documented as of this encounter
--- OUTSIDE RECORDS SUMMARY | 2025-03-22 11:23 | XMS_ITS | Clinical Summary ---
Author Organization [facility] Address [address] [place] [address] Care Team Providers Care Upper Stitcher Name Role Phone Stanley Toledo MD Unavailable [phone] Stanley Toledo MD Primary Care Provider [phone] Joi Zhang LPN Unavailable Allergies No known active allergies Medications MedicationSigDispense QuantityRefillsLast FilledStart DateEnd DateStatus ferrous sulfate 325 (65 Fe) MG tablet Take 325 mg by mouth in the morning. Take with meals.Active albuterol HFA 90 mcg/act inhaler Indications:Simple chronic bronchitis (HCC)Inhale 2 puffs every 6 (six) hours if needed for wheezing 54 g ctive FIBER ADULT GUMMIES PO Take 2 tablets by mouth DailyActive Multiple Vitamins-Minerals (Multivitamin Gummies Mens) chewable tablet Chew 1 tablet DailyActive atorvastatin (Lipitor) 80 MG tablet Take 80 mg by mouth at brqkvlw7701/16/2024ctive nitroglycerin (Nitrostat) 0.[address] 0.4 mg under the tongue every 5 (five) minutes if needed for chest pain 01/16/2024ctive amiodarone (Pacerone) 200 MG tablet Take 200 mg by mouth DailyActive furosemide (Lasix) 40 MG tablet Take 40 mg by mouth in the morning.02/04/2024ctive Spacer/Aero-Holding Chambers (BreatheRite Dulce Spacer Adult) misc Indications:Simple chronic bronchitis (HCC)2 puffs 4 (four) times a day as needed (sob and cough) 1 each 02/17/2024ctive clopidogrel (Plavix) 75 MG tablet Take 75 mg by mouth DailyActive warfarin (Coumadin) 2 MG tablet Take 2 mg by mouth 1 (one) time each day 5 days a week (Friday, Friday, Friday, Friday and Friday)04/21/2024ctive warfarin (Coumadin) 2 MG tablet Take 1 mg by mouth 1 (one) time each day 2 days a week (Friday and ) Active metoprolol succinate XL (Toprol-XL) 25 MG 24 hr tablet Take 25 mg by mouth in the morning.5Active methIMAzole (Tapazole) 5 MG tablet Take 1 tablet (5 mg) by mouth in the morning and 1 tablet (5 mg) before bedtime. 60 tablet 110506Active cephalexin (Keflex) 250 MG capsule Take 250 mg by mouth 3 (three) times a week On Friday, Friday, Friday5Active QUEtiapine (SEROquel) 25 MG tablet Take 25 mg by mouth at bedtimeActive donepezil (Aricept) 10 MG tablet Indications: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 disturbance, psychotic disturbance, mood disturbance, or anxiety (HCC)Take 2 tablets (20 mg) by mouth at wctbnxu485Active potassium chloride CR (Klor-Con M20) 20 MEQ ER tablet Take 20 mEq by mouth Daily01/28/2025tive fexofenadine (Pham) 180 MG tablet Take 180 mg by mouth DailyActive Active Problems ProblemNoted DateDiagnosed DateAneurysm of left popliteal qmtncb6503/15/2025 Jnpziqqhysp38/21/2025Delirium due to another medical cogvtwgiq83/11/2025Lower extremity edema10/02/2024ommunity acquired pneumonia of lower lobe of lung 10/02/2024nemia due to stage 3b chronic kidney prmevih1805/13/2024HF (congestive heart failure)02/17/2024Ischemic ogqohozqwcqbxl87/17/2024resence of stent in LAD coronary ogybgm5301/28/2024Former ifxyod6601/28/2024ilateral hydronephrosis 10/06/2023Folic acid aaycewjzda55/13/2024Vitamin B 12 pyjzhohjup13/13/2024Stage 3b chronic kidney vspkolo3205/12/20231058Ifeqkrxsslq35/27/2561Syxifgzu79/27/2023OPD with llylgwtzo76/27/2023PH with urinary yeffmqzwaem63/27/2023bdominal aortic aneurysm (AAA) greater than 5.5 cm in diameter in male11/11/2022therosclerosis of right carotid coflzf8811/11/2022Essential hypertension, avyksw5611/11/2022Hearing difficulty of both ears11/11/20221854Azlaprvagxkcqbwe97/19/2023Mixed dyslipidemia 11/11/20224139Kvgxivwwiu97/19/2023aroxysmal SVT (supraventricular tachycardia) 11/11/2022Simple chronic jklvoyietr78/19/2023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 11/11/2022Urinary bladder ztcibfjh22/19/2023Venous insufficiency of lower iwmrjcwxg22/19/2023White matter psnidqr6011/11/2022Transient cerebral ischemic qjcken5405/16/20229081Edwfyuaghaaf84/16/2021Hearing loss11/22/2019Hypertensive rvklucvkdcd74/29/2016 Resolved Problems ProblemNoted DateDiagnosed DateResolved DateNew onset a-fib/02/2024 S/P PTCA (percutaneous transluminal coronary angioplasty)/ Metabolic yrehkcyl16History of bladder tvauvg6412/19/2022 12/19/2022Obstructive towfkwhg89Sundowning Acute kidney jolrcnh80Hypertensive nephropathy, stage 1-4 or unspecified chronic kidney hkglvjo32History of cardiovascular gyduswck72igarette Encounters DateTypeDepartmentCare GzkfZrkuwsvyhdr11/27/2025Patient Outreach [facility] [address] [place] [address] Joi Zhang LPN 03/18/2025linisync Result Encounter [facility] External Department Unsolicited Provider, Generic External Data 03/15/2025Orders Only [facility] [address] [facility] [address] [place] [address] Betty Cohen, [place] 5Clinisync Result Encounter [facility] External Department Unsolicited Provider, Generic External Data 02/09/2025bstract [facility] [address] [place] [address] Stanley Toledo MD 02/02/2025Telephone [facility] [address] [facility] [address] [place] [address] Stanley Toledo MD 02/02/2025linisync Result Encounter [facility] External Department Unsolicited Provider, Generic External Data 01/31/2025Patient Outreach [facility] [address] [place] [address] Joi Zhang LPN 01/13/2025bstract [facility] [address] [facility] [address] [place] [address] Stanley Toledo MD 01/12/2025Telephone [facility] [address] [place] [address] Stanley Toledo MD 12/30/2024Patient Outreach [facility] [address] [place] [address] Joi Zhang LPN 12/20/2024Patient Outreach [facility] [address] [place] [address] Joi Zhang LPN from Last 3 Months Immunizations ImmunizationAdministration DatesNext DueInfluenza, High Dose Seasonal, Preservative Free05/20/2022,02/14/2021Influenza, High-dose Seasonal, Quadrivalent, Preservative Free03/06/2022Influenza, Seasonal, Quadrivalent, Zekixpnvst80/01/2023Influenza, injectable, quadrivalent, preservative free 02/22/2021,02/22/2020Influenza, recombinant, quadrivalent, injectable, preservative free02/22/2020Influenza, seasonal, qogbdhqqed94/25/2024,03/16/2022 Moderna Bivalent Booster Qxowbckfvmr98/04/2022Pfizer Mane Cap SARS-CoV-2 Nrhjlyczapw21/11/2022Pfizer Purple Cap SARS-CoV-2 Oepilttqwkh67/25/2024 Pneumococcal Conjugate PCV 4Pneumococcal Polysaccharide PPSV23 1RSV, recombinant, protein subunit RSVpreF, adjuvant reconstitu, 120mcg/0.5mL, PF (Arexvy)08/23/20245265DNEN-PKJ-8 (COVID-19) vaccine, mRNA, spike protein, LNP, PF, valente-sucrose, 30 mcg/0.3 mL02/16/20238363TBLM-JcH-4, Unspecified 10/03/2021 Family History RelationNameStatusCommentsBrotherAlive1 brotherDaughterAlive1 daughterFather DeceasedMotherDeceasedSonAlive1 son Social History Tobacco UseTypesPacks/DayYears UsedDateSmoking Tobacco: FormerCigarettes0.561.2 Started: 12/31/1963Smokeless Tobacco: Never Tobacco Cessation:Counseling Given: Yes Alcohol UseStandard Drinks/WeekCommentsNever0 (1 standard drink = 0.6 oz pure alcohol)B1300 Health LiteracyAnswerDate RecordedHow often do you need to have someone help you when you read instructions, pamphlets, or other written material from your doctor or pharmacy?Wdyesu5212/30/2024Humiliation, Afraid, Rape, and Kick questionnaireAnswerDate RecordedWithin the last year, have you been afraid of your partner or ex-partner?No12/31/2023Within the last year, have you been humiliated or emotionally abused in other ways by your partner or ex-partner?No12/31/2023Within the last year, have you been kicked, hit, slapped, or otherwise physically hurt by your partner or ex-partner?No12/31/2023Within the last year, have you been raped or forced to have any kind of sexual activity by your partner or ex-partner?No12/31/2023Social Connection and Isolation Panel AnswerDate RecordedIn a typical week, how many times do you talk on the phone with family, friends, or neighbors?More than three times a week12/31/2023How often do you get together with friends or relatives?More than three times a week 12/31/2023How often do you attend christian or anglican services?Never12/31/2023o you belong to any clubs or organizations such as christian groups, unions, fraAcision or athletic groups, or school groups?No12/31/2023How often do you attend meetings of the clubs or organizations you belong to?Never12/31/2023re you , , , , never , or living with a partner?Qvceuim0112/31/2023UDIT-CAnswerDate RecordedQ1: How often do you have a drink containing alcohol?Never12/31/2023Q2: How many drinks containing alcohol do you have on a typical day when you are drinking?Patient does not drink 12/31/2023Q3: How often do you have six or more drinks on one occasion?Never 12/31/2023Overall Financial Resource Strain (CARDIA)AnswerDate RecordedHow hard is it for you to pay for the very basics like food, housing, medical care, and heating?Not hard at all12/31/2023HQ-2AnswerDate RecordedPatient Health Questionnaire-2 Vfpel66007/14/2023[facility] [place] [facility] - Occupational Stress QuestionnaireAnswerDate RecordedDo you feel stress - tense, restless, nervous, or anxious, or unable to sleep at night because yourmind is troubled all the time - these days?Only a dnnbex8112/30/2024Exercise Vital Sign AnswerDate RecordedOn average, how many days per week do [...] homeless or living in a custodial (including now)?No12/31/2023Sex and Gender InformationValueDate RecordedSex Assigned at BirthNot on fileLegal CyrXwyu4108/07/2022 7:16 PM EDTGender IdentityNot on fileSexual OrientationNot on file Last Filed Vital Signs Vital SignReadingTime TakenCommentsBlood Onxipjff91/6805 3:01 PM EDT Olant292805/13/2024 2:38 PM ESTTemperature--Respiratory Rate--Oxygen Pthuquiwod77% 05/13/2024 2:38 PM ESTInhaled Oxygen Concentration--Qvjflq49.1 kg (203 lb) 09/21/2024 2:08 PM DXHXdjjdd077 cm (6' 2 )09/21/2024 2:08 PM EDTBody Mass Index 26.0609/21/2024 2:08 PM EDT Plan of Treatment DateTypeDepartmentCare Team (Latest Contact Info)Ipmmcdwpxim51/16/2025 2:00 PM ESTOffice Visit [facility] [address] [facility] [address] [place] [address] Stanley Toledo MD 112 [facility] 100 [place] [address] Health MaintenanceDue DateLast DoneCommentsDTaP/Tdap/Td Vaccines (1 - Tdap) 11/30/1950OVID-19 Vaccine (9 - season)51, 03/19/2024, 02/16/2023, Additional history existsInfluenza Vaccine (#1), 03/26/2023, 05/20/2022, Additional history existsMedicare Annual Wellness (AWV) 5107/14/2023, 05/12/2023neumococcal Vaccine: 65+ YearsCompleted 05/28/2023, 04/23/2021HIB VaccinesAged OutNo longer eligible based on patient's [...] age to complete this topic Meningococcal B VaccineAged OutNo longer eligible based on patient's age to complete this topicMeningococcal VaccineAged OutNo longer eligible based on patient's age to complete this topicRotavirus VaccinesAged OutNo longer eligible based on patient's age to complete this topic Procedures Procedure NamePriorityDate/TimeAssociated DiagnosisCommentsALL THYROID STIM RIKFHWDMozerxb13/24/2025 8:16 AM EDT ALL LIPID PROFILE (FASTING)Rffllvm2403/18/2025 8:16 AM EDT [facility] PLHHulxfeu46/24/2025 8:16 AM EDT ALL BASIC METABOLIC XRBCJHtodlhd40/24/2025 8:16 AM EDT TBH VITAMIN D 25 IJEileedn20/06/2025 11:57 AM EDT [facility] AGUWQAPPTjopfvy45/06/2025 11:57 AM EDT HMHP PTH, EZEJWUPBZAQRSKQouhzpt20/06/2025 11:57 AM EDT VITAMIN H19Nqmadgl16/06/2025 11:57 AM EDT FOLATE (FOLIC ACID), BTWTYJzslfcp61/06/2025 11:57 AM EDT ALL BTSDPWOQXNgoobxj33/06/2025 11:57 AM EDT ALL URIC IJQOSpylpit49/06/2025 11:57 AM EDT ALL RENAL FUNCTION XDKPWLbnnkak90/06/2025 11:57 AM EDT METRO IRON AND SADXOycflxt84/06/2025 11:57 AM EDT HMHP CBC WITH PLATELET NO YYZKRCPZMQWHPcridbc43/06/2025 11:57 AM EDT TBH URINE T PROTEIN CREAT ZWDVZFnonbfk69/06/2025 11:34 AM EDT ALL OYOULVVYYLSeugvrp30/10/2025 1:01 PM EDT from Last 3 Months Results * [facility] AST (03/18/2025 8:16 AM EDT)ComponentValueRef RangeTest MethodAnalysis TimePerformed AtPathologist SignatureASPARTATE AMINO QPZSPMIUYMF0774 - 37 U/L TBHSpecimen (Source)Anatomical Location / LateralityCollection Method / Volume Collection TimeReceived Time03/18/2025 8:16 AM EDT1 8:17 AM EDT Narrative [facility] - 03/18/2025 10:29 AM EDT Authorizing ProviderResult TypeResult StatusGeneric External Data Provider CLINISYNCFinal ResultPerforming OrganizationAddressCity/State/ZIP CodePhone Number [facility] * (ABNORMAL) ALL THYROID STIM HORMONE (03/18/2025 8:16 AM EDT)ComponentValueRef RangeTest MethodAnalysis TimePerformed AtPathologist SignatureTHYROID STIMULATING GWBKSJA07.644(H)0.358 - 3.740 uIU/mLTBHSpecimen (Source)Anatomical Location / LateralityCollection Method / VolumeCollection TimeReceived Time 03/18/2025 8:16 AM EDT1 8:17 AM EDT Narrative [facility] - 03/18/2025 10:29 AM EDT Authorizing ProviderResult TypeResult StatusGeneric External Data Provider CLINISYNCFinal ResultPerforming OrganizationAddressCity/State/ZIP CodePhone Number [facility] * (ABNORMAL) ALL LIPID PROFILE (FASTING) (03/18/2025 8:16 AM EDT)ComponentValue Ref RangeTest MethodAnalysis TimePerformed AtPathologist Signature PREUFRNKJNWZD86<=150 mg/cHIHJZKJXRZOOWLL71<=200 mg/dLTBHHDL YFAODKHPJWJ72(L)40 - 60 mg/dLTBHComment: > or =60 mg/dl - LOW CARDIOVASCULAR RISK <40 mg/dl - HIGH CARDIOVASCULAR RISK LDL CHOLESTEROL FKROJIAPUR08.0mg/dLTBHComment: <100 mg/dl OPTIMAL 100-129 mg/dl NEAR OR ABOVE OPTIMAL 130-159 mg/dl BORDERLINE HIGH 160-189 mg/dl HIGH >190 mg/dl VERY HIGH VLDL MLXSZEKAHLL27.8mg/dLTBHCHOL HDL RATIO2.2TBHComment: 3.3 - 4.4 ?? LOW RISK 4.4 - 7.1 ?? AVERAGE RISK 7.1 - 11.0 ??MODERATE RISK >11.0 HIGH RISK Specimen (Source)Anatomical Location / LateralityCollection Method / Volume Collection TimeReceived Time03/18/2025 8:16 AM EDT1 8:17 AM EDT Narrative [facility] - 03/18/2025 10:29 AM EDT Authorizing ProviderResult TypeResult StatusGeneric External Data Provider CLINISYNCFinal ResultPerforming OrganizationAddressty/State/ZIP CodePhone Number [facility] * (ABNORMAL) ALL BASIC METABOLIC PANEL (03/18/2025 8:16 AM EDT)ComponentValueRef RangeTest MethodAnalysis TimePerformed AtPathologist JwobfabouQMXEEK453(H)136 - 145 mmol/LTBHPOTASSIUM3.93.5 - 5.1 mmol/NCUYBESPQBBL45246 - 107 mmol/LTBH [place] XOWGXRM49.521.0 - 32.0 mmol/LTBHANION GAP16.6AOCIGAWDNB3111 - 106 mg/dL TBHBLOOD UREA XDZUHVKG19.0(H)7.0 - 18.0 mg/dLTBHCREATININE1.80(H)0.70 - 1.30 mg/dLTBHTBH EGFR-AF CFFVADZD39(L)>=60 mL/min/1.73m 2TBHTBH EGFR-NON AF NYTWEGZH61(L)>=60 mL/min/1.73m 2TBHBUN CREATININE RATIO14.1JFCWMRPZQS2.88.5 - 10.1 mg/dLTBHSpecimen (Source)Anatomical Location / LateralityCollection Method / VolumeCollection TimeReceived Time03/18/2025 8:16 AM EDT1 8:17 AM EDT Narrative [facility] - 03/18/2025 10:29 AM EDT Authorizing ProviderResult TypeResult StatusGeneric External Data Provider CLINISYNCFinal ResultPerforming OrganizationAddressty/State/ZIP CodePhone Number [facility] * VITAMIN B12 (02/28/2025 11:57 AM EDT)ComponentValueRef RangeTest Method Analysis TimePerformed AtPathologist SignatureVITAMIN [id number] - 1245 pg/mL TBHComment: Performed at: ?? - [facility] ??[id number] [employer]acking [employer] Fanning Machine Operator: Morgan Carpenter PhD, Phone: ??[phone] Specimen (Source)Anatomical Location / LateralityCollection Method / Volume Collection TimeReceived Time02/28/2025 11:57 AM EDT1 11:59 AM EDT Narrative [facility] - 03/01/2025 4:07 AM EDT Authorizing ProviderResult TypeResult StatusGeneric External Data ProviderLAB BLOOD ORDERABLESFinal ResultPerforming OrganizationAddressty/State/ZIP Code Phone Number [facility] * FOLATE (FOLIC ACID), SERUM (02/28/2025 11:57 AM EDT)ComponentValueRef Range Test MethodAnalysis TimePerformed AtPathologist SignatureFOLATE (FOLIC ACID) >20.0>3.0 ng/mLTBHComment: A serum folate concentration of less than 3.1 ng/mL is considered to represent clinical deficiency. Performed at: ?? - [facility] [address] ??[id number] [employer]acking [employer] Fanning Machine Operator: Morgan Carpenter PhD, Phone: ??[phone] Specimen (Source)Anatomical Location / LateralityCollection Method / Volume Collection TimeReceived Time02/28/2025 11:57 AM EDT1 3:01 PM EDT Narrative [facility] - 03/01/2025 4:07 AM EDT Authorizing ProviderResult TypeResult StatusGeneric External Data ProviderLAB BLOOD ORDERABLESFinal ResultPerforming OrganizationAddressCity/State/ZIP Code Phone Number [facility] * TBH VITAMIN D 25 [place] (02/28/2025 11:57 AM EDT)ComponentValueRef RangeTest MethodAnalysis TimePerformed AtPathologist SignatureVITAMIN D56.8ng/mLTBH Comment: <20 ng/mL Vit D deficient 20-<30 ng/mL Vit D insufficient 30-100 ng/mL ??Vit D sufficient >100 ng/mL Potential Toxicity Specimen (Source)Anatomical Location / LateralityCollection Method / Volume Collection TimeReceived Time02/28/2025 11:57 AM EDT1 11:59 AM EDT Narrative [facility] - 03/02/2025 5:25 PM EDT Authorizing ProviderResult TypeResult StatusGeneric External Data Provider CLINISYNCFinal ResultPerforming OrganizationAddressty/State/ZIP CodePhone Number [facility] * (ABNORMAL) [facility] TIBC (02/28/2025 11:57 AM EDT)ComponentValueRef RangeTest MethodAnalysis TimePerformed AtPathologist SignatureTBH IRON29.0(L) 65.0 - 175.0 ug/dLTBHTBH TOTAL IRON BINDING SQQHCKKS280.0250.0 - 450.0 ug/dL TBHTBH PERCENT IRON SATURATION9.6%TBHSpecimen (Source)Anatomical Location / LateralityCollection Method / VolumeCollection TimeReceived Time10/10/2024 11:57 AM EDT1 11:59 AM EDT Narrative [facility] - 02/28/2025 12:40 PM EDT Authorizing ProviderResult TypeResult StatusGeneric External Data Provider CLINISYNCFinal ResultPerforming OrganizationAddressCity/State/ZIP CodePhone Number [facility] * (ABNORMAL) [facility] PTH, INTRAOPERATIVE (02/28/2025 11:57 AM EDT)ComponentValueRef RangeTest MethodAnalysis TimePerformed AtPathologist SignaturePTH, HSINXH67(A) 15 - 65 pg/mLTBHComment: Performed at: ??CB - [facility] [address] ??[id number] Cracking [employer] Fanning Machine Operator: Morgan Carpenter PhD, Phone: ??[phone] Specimen (Source)Anatomical Location / LateralityCollection Method / Volume Collection TimeReceived Time02/28/2025 11:57 AM EDT1 11:59 AM EDT Narrative [facility] - 03/01/2025 2:10 PM EDT Authorizing ProviderResult TypeResult StatusGeneric External Data Provider CLINISYNCFinal ResultPerforming OrganizationAddressty/State/ZIP CodePhone Number [facility] * (ABNORMAL) [facility] CBC WITH PLATELET NO DIFFERENTIAL (02/28/2025 11:57 AM EDT) ComponentValueRef RangeTest MethodAnalysis TimePerformed AtPathologist SignatureTBH WBC7.14.0 - 11.0 10 3/uLTBHTBH RBC4.36(L)4.70 - 6.10 10 6/uLTBH TBH HGB11.6(L)14.0 - 18.0 g/dLTBHTBH HCT38.4(L)42.0 - 54.0 %TBHTBH MCV88.180.0 - 94.0 fLTBHTBH MCH26.625.9 - 34.0 pgTBHTBH MCHC30.229.9 - 35.2 g/dLTBHTBH RDW 15.7(H)11.0 - 15.0 %TBHTBH SUN406889 - 450 10 3/uLTBHTBH MPV10.09.5 - 13.5 fL TBHSpecimen (Source)Anatomical Location / LateralityCollection Method / Volume Collection TimeReceived Time02/28/2025 11:57 AM EDT1 11:59 AM EDT Narrative [facility] - 02/28/2025 12:08 PM EDT Authorizing ProviderResult TypeResult StatusGeneric External Data Provider CLINISYNCFinal ResultPerforming OrganizationAddressty/State/ZIP CodePhone Number [facility] * [facility] FERRITIN (02/28/2025 11:57 AM EDT)ComponentValueRef RangeTest Method Analysis TimePerformed AtPathologist CsyzaqtluVHDSNLZX74.026.0 - 388.0 ng/mL TBHSpecimen (Source)Anatomical Location / LateralityCollection Method / Volume Collection TimeReceived Time02/28/2025 11:57 AM EDT1 11:59 AM EDT [facility] - 03/02/2025 5:25 PM EDT Authorizing ProviderResult TypeResult StatusGeneric External Data Provider [facility] ResultPerforming OrganizationAddressty/State/ZIP CodePhone Number [facility] * ALL URIC ACID (02/28/2025 11:57 AM EDT)ComponentValueRef RangeTest Method Analysis TimePerformed AtPathologist SignatureURIC ACID6.53.5 - 7.2 mg/dLTBH Specimen (Source)Anatomical Location / LateralityCollection Method / Volume Collection TimeReceived Time02/28/2025 11:57 AM EDT1 11:59 AM EDT [facility] - 02/28/2025 12:40 PM EDT Authorizing ProviderResult TypeResult StatusGeneric External Data Provider CLINISYNCFinal ResultPerforming OrganizationAddD[facility]/State/ZIP CodePhone Number [facility] * (ABNORMAL) ALL RENAL FUNCTION PANEL (02/28/2025 11:57 AM EDT)ComponentValueRef RangeTest MethodAnalysis TimePerformed AtPathologist IysqlhldkVHQCQQ464207 - 145 mmol/LTBHPOTASSIUM3.83.5 - 5.1 mmol/TGJFFAFHVXKO282(H)98 - 107 mmol/LTBH [place] YVJZUDJ91.921.0 - 32.0 mmol/LTBHANION GAP12.8CHVQOMAOPG89745 - 106 mg/dLTBHBLOOD UREA YWEALBKY36.0(H)7.0 - 18.0 mg/dLTBHCREATININE2.27(H)0.70 - 1.30 mg/dLTBHTBH EGFR-AF YLRMQIAD21(L)>=60 mL/min/1.73m 2TBHTBH EGFR-NON AF MFWBGJMF67(L)>=60 mL/min/1.73m 2TBHBUN CREATININE RATIO13.1LWXLVOWKLP6.68.5 - 10.1 mg/dLTBHPHOSPHORUS3.12.6 - 4.7 mg/dLTBHALBUMIN LEVEL3.83.4 - 5.0 g/dLTBH Specimen (Source)Anatomical Location / LateralityCollection Method / Volume Collection TimeReceived Time02/28/2025 11:57 AM EDT1 11:59 AM EDT Narrative [facility] - 02/28/2025 12:40 PM EDT Authorizing ProviderResult TypeResult StatusGeneric External Data Provider CLINISYNCFinal ResultPerforming OrganizationAddressCity/State/ZIP CodePhone Number [facility] * ALL MAGNESIUM (02/28/2025 11:57 AM EDT)ComponentValueRef RangeTest Method Analysis TimePerformed AtPathologist SignatureMAGNESIUM2.31.8 - 2.4 mg/dLTBH Specimen (Source)Anatomical Location / LateralityCollection Method / Volume Collection TimeReceived Time02/28/2025 11:57 AM EDT1 11:59 AM EDT [facility] 02[facility]28/2025 12:40 PM EDT Authorizing ProviderResult TypeResult StatusGeneric External Data Provider CLINISYNCFinal ResultPerforming OrganizationAddressCity/State/ZIP CodePhone Number [facility] * (ABNORMAL) TBH URINE T PROTEIN CREAT RATIO (02/28/2025 11:34 AM EDT)Component ValueRef RangeTest MethodAnalysis TimePerformed AtPathologist SignatureTOTAL PROTEIN URINE RANDOM7.7<=11.9 mg/dLTBHCREATININE URINE XIAUDH02.47(L)20.00 - 300.00 mg/dLTBHPROTEIN CREATININE RATIO URINE0.47TBHSpecimen (Source) Anatomical Location / LateralityCollection Method / VolumeCollection Time Received Time02/28/2025 11:34 AM EDT1 11:59 AM EDT Narrative [facility] - 02/28/2025 12:53 PM EDT Authorizing ProviderResult TypeResult StatusGeneric External Data Provider CLINISYNCFinal ResultPerforming OrganizationAddressty/State/ZIP CodePhone Number [facility] * (ABNORMAL) ALL HEMOGLOBIN (02/02/2025 1:01 PM EDT)ComponentValueRef RangeTest MethodAnalysis TimePerformed AtPathologist SignatureTBH HGB10.9(L)14.0 - 18.0 g/dLTBHSpecimen (Source)Anatomical Location / LateralityCollection Method / VolumeCollection TimeReceived Time02/02/2025 1:01 PM EDT02/02/2025 1:04 PM EDT Narrative [facility] - 02/02/2025 1:15 PM EDT Authorizing ProviderResult TypeResult StatusGeneric External Data Provider CLINISYNCFinal ResultPerforming OrganizationAddressCity/State/ZIP CodePhone Number [facility] from Last 3 Months Insurance Care Teams Team MemberRelationshipSpecialtyStart DateEnd Date Stanley Toledo MD [address] [place] [address] PCP - [facility]10/17/22 Stanley Toledo MD [address] [place] [address] (Fax) [facility] Joi Zhang LPN [address] [place] [address] 08/26/24
--- OUTSIDE RECORDS SUMMARY | 2025-03-22 11:23 | XMS_ITS | Encounter Summary ---
Author Organization [facility] Address [address] [place] [address] Care Team Providers Care Mortgage Funder Name Role Phone Stanley Emerson MD Unavailable [phone] Stanley Emerson MD Primary Care Provider + [phone] Dora Santiago CLOTH WORKER Unavailable Christina Goddard CLOTH WORKER Unavailable Unavailable Joi Zhang CLOTH WORKER Unavailable Encounter Details DateTypeDepartmentCare Team (Latest Contact Info)Vbpirluomgk27/07/2024linisync Result Encounter [facility] External Department Unsolicited Provider, Generic External Data Social History Tobacco UseTypesPacks/DayYears UsedDateSmoking Tobacco: FormerCigarettes Smokeless Tobacco: NeverAlcohol UseStandard Drinks/WeekCommentsNot Currently0 (1 standard drink = 0.6 oz pure alcohol)B1300 Health LiteracyAnswerDate RecordedHow often do you need to have someone help you when you read instructions, pamphlets, or other written material from your doctor or pharmacy?Always 12/30/2024Humiliation, Afraid, Rape, and Kick questionnaireAnswerDate Recorded Within the last year, have you been afraid of your partner or ex-partner?No 12/31/2023Within the last year, have you been humiliated or emotionally abused in other ways by your partner or ex-partner?No12/31/2023Within the last year, have you been kicked, hit, slapped, or otherwise physically hurt by your partner or ex-partner?No12/31/2023Within the last year, have you been raped or forced to have any kind of sexual activity by your partner or ex-partner?No12/31/2023 Social Connection and Isolation PanelAnswerDate RecordedIn a typical week, how many times do you talk on the phone with family, friends, or neighbors?More than three times a week12/31/2023How often do you get together with friends or relatives?More than three times a week12/31/2023How often do you attend episcopal or nondenominational services?Never12/31/2023o you belong to any clubs or organizations such as episcopal groups, unions, fraternal or athletic groups, or school groups?No 12/31/2023How often do you attend meetings of the clubs or organizations you belong to?Never12/31/2023re you , , , , never , or living with a partner?Leobjlp8212/31/2023UDIT-CAnswerDate RecordedQ1: How often do you have a drink containing alcohol?Never12/31/2023Q2: How many drinks containing alcohol do you have on a typical day when you are drinking? Patient does not drink12/31/2023Q3: How often do you have six or more drinks on one occasion?Never12/31/2023Overall Financial Resource Strain (CARDIA)AnswerDate RecordedHow hard is it for you to pay for the very basics like food, housing, medical care, and heating?Not hard at all12/31/2023HQ-2AnswerDate Recorded Patient Health Questionnaire-2 Ppzuw62907/14/2023[facility] [place] [facility] Occup[facility] - Occupational Stress QuestionnaireAnswerDate RecordedDo you feel stress - tense, restless, nervous, or anxious, or unable to sleep at night because your mind is troubled all the time - these days?Only a stcgbc4512/30/2024Exercise Vital SignAnswerDate RecordedOn average, how many days per week do you engage in moderate to strenuous exercise (like a brisk walk)?5 days12/30/2024On average, how many minutes do you engage in exercise at this level?30 min12/30/2024Hunger Vital SignAnswerDate RecordedWithin the past 12 months, you worried that your food would run out before you got the money to buymore.Never true12/31/2023 Within the past 12 months, the food you [...] homeless or living in a detention (including now)?No12/31/2023Sex and Gender InformationValueDate RecordedSex Assigned at BirthNot on fileLegal PrsOrqc5408/07/2022 7:16 PM EDTGender IdentityNot on fileSexual OrientationNot on filedocumented as of this encounter Functional Status * AUDIT-C ScoreAnswerDate of RobobhixecOzthqr470/07/2024 8:57 AM Dora Tompkins LPN * QuestionAnswerDate of AssessmentAuthorQ1: How often do you have a drink containing alcohol?Never12/31/2023 8:57 AM Dora Tompkins LPNQ2: How many drinks containing alcohol do you have on a typical day when you are drinking? Patient does not drink12/31/2023 8:57 AM Dora Tompkins LPNQ3: How often do you have six or more drinks on one occasion?Never12/31/2023 8:57 AM Dora Tompkins LPN * Over the past 2 weeks, how often have you been bothered by any of the following problems?QuestionAnswerDate of AssessmentAuthorLittle interest or pleasure in doing thingsNot at all05/13/2024 2:00 PM Ruby, August, [place] Feeling down, depressed, or hopelessNot at all05/13/2024 2:00 PM Ruby, August, [facility]ACHatient Health Questionnaire-2 Njkla112 2:00 PM Betty Beltran, DUSTY * QuestionAnswerDate of AssessmentAuthorTrouble falling or staying asleep, or sleeping too muchSeveral days05/13/2024 2:00 PM Abelaugust, MAFeeling tired or having little energyMore than half the days05/13/2024 2:00 PM JENIFFER Hyltonaugust, MAPoor appetite or overeatingNot at all05/13/2024 2:00 PM JENIFFER Hyltonaugust, MAFeeling bad about yourself - or that you are a failure or have let yourself or your family downNot at all05/13/2024 2:00 PM JENIFFERAugust, MATrouble concentrating on things, such as reading the newspaper or watching televisionNot at all05/13/2024 2:00 PM JENIFFERAugust, MAMoving or speaking so slowly that other people could have noticed? Or the opposite - being so fidgety or restless that you have been moving around a lot more than usual.Not at all05/13/2024 2:00 PM Tiarraaugust, MAThoughts that you would be better off or hurting yourself in some wayNot at all05/13/2024 2:00 PM Tiarraaugust, MAPatient Health Questionnaire-9 Yqpuq75907/14/2023 2:00 PM Betty Beltran MA documented as of this encounter Plan of Treatment DateTypeDepartmentCare Team (Latest Contact Info)Mkautpopgnt22/16/2025 2:00 PM ESTOffice Visit [facility] [address] [facility] [address] [place] [address] Stanley Emerson MD [address] [facility] [address] [place] [address] documented as of this encounter Procedures Procedure NamePriorityDate/TimeAssociated DiagnosisCommentsVASC US LOWER EXTREMITY VENOUS DUPLEX RIGHT07/31/2023 10:47 AM EST documented in this encounter Results * Vascular US lower extremity venous duplex right (07/31/2023 10:47 AM EST) Anatomical RegionLateralityModalityLower ExtremitiesUltrasoundSpecimen (Source)Anatomical Location / LateralityCollection Method / VolumeCollection TimeReceived Time07/31/2023 10:47 AM EST Narrative 07/31/2023 10:50 AM EST [facility] ?[address] ? [place], [facility] ? Ultrasound Report ? Signed ? Patient: GRAJEDA,ALEX H ?MR#: [id number] ?? : 1945 ?Acct:[id number] ?? Age/Sex: 77 / M ?ADM Date: 07/31/23 ?? Loc: RAD ? Attending Dr: Shahriar Mosley M.D. ? Ordering Physician: Shahriar Mosley ?? Date of Service: 07/31/23 ?? Procedure(s): US venous doppler LE RT ?? Accession Number(s): [id number] ? cc: Shahriar Mosley; STANLEY EMERSON ? [facility] ? [address] [facility] ? [place] [address] ? Patient Name: ?? ALEX GRAJEDA ? MRN: [facility]:[id number] ? date: 1945 ?Sex: M ?? Assigned Patient Location: RAD ?? Current Patient Location: RAD ?? Accession/Order Number: [id number] ?? Exam Date: 07/31/2023 ??08:40 ?Report Date: 07/31/2023 ??10:47 ? At the request of: ?? SHAHRIAR ??JOSHUA ? Procedure: ??US venous doppler LE RT ? EXAMINATION: US venous doppler LE RT ? HISTORY: Deep Vein Thrombosis , right leg swelling ? COMPARISON: No relevant comparison available. ? FINDINGS: ? REGION: Right lower extremity ?? THROMBI: None. ?? COMPRESSIBILITY: Normal compressibility. ?? FLOW: Normal waveform and antegrade flow between 5 and 20 cm/s. ?? OTHER: Subcutaneous edema. ? US/US venous doppler LE RT ?? IMPRESSION: ? 1. No deep vein thrombus within the right lower extremity. ? Electronically authenticated by: NACHO ??GILMER ?? Date: 07/31/2023 ??10:47 ? Dictated By: ?Nacho Blair M.D. ? Signed By: ?07/31/23 1050 ? DD/ 1047 ? TD/TT: ? Studio Hand: Procedure Note Radiology, Radiologist, MD - 07/31/2023 [place] [address] Ultrasound Report Signed Patient: ALEX GRAJEDA R#: [id number] : 1945cct:[id number] Age/Sex: 77 / MADM Date: 07/31/23 Loc: RAD Attending Dr: Shahriar Mosley M.D. Ordering Physician: Shahriar Mosley Date of Service: 07/31/23 Procedure(s): US venous doppler LE RT Accession Number(s): [id number] cc: Shahriar Mosley; STANLEY EMERSON [place] [address] Patient Name: ALEX GRAJEDA MRN: [id number] date: 1945 Sex: M Assigned Patient [facility]: [facility] Current Patient Location: [facility] Accession/Order Number: [id number] Exam Date: 07/31/2023 08:40 Report Date: 07/31/2023 [...] M.D. Signed By:07/31/23 1050 DD/ 1047 TD/TT: Studio Hand: Authorizing ProviderResult TypeResult StatusGeneric External Data ProviderIMG US PROCEDURESFinal Result documented in this encounter Visit Diagnoses Not on filedocumented in this encounter Additional Health Concerns AssessmentNoted TimePHQ-9 Depression Total Score: 1:00 PM EST documented as of this encounter Care Teams Team MemberRelationshipSpecialtyStart DateEnd Date Stanley Emerson MD [address] [place] [address] ([place]) PCP - ACO Reach10/17/22 Stanley Emerson MD [address] [place] [address] (Fax) PCP - GeneralFamily Medicine11/20/22 Dora Santiago LPN [address] [place] [address] Licensed Practical NurseFamily Medicine/08/17 Christina Goddard LPN Licensed Practical NurseFamily Medicine/06/18 Joi Zhang LPN [address] [place] [address] 08/26/24documented as of this encounter
--- OUTSIDE RECORDS SUMMARY | 2025-03-22 11:39 | XMS_ITS | CCD ---
Author Organization [facility] Care Team Providers Care Center Machine Set Up Operator Name Role Phone Stanley Emerson Unavailable Unavailable Unavailable STANLEY EMERSON Primary Care Physician Unavail able MD Stanley Emerson Primary Care Provider MD Taz Barnes Admit Provider MD Margarito Valentine Other Provider [phone] MD Janice Gonzalez Other Provider DO Bernabe Cr Attending Provider MD Margarito Valentine Attending Provider MD Margarito Valentine Admit Provider [phone] Preston Griffin Unavailable Margarito Valentine Unavailable [phone] MOMO Omalley Attending Provider MD Stanley Emerson Primary Care Provider MD Taz Barnes Admit Provider MD Margarito Valentine Other Provider MD Janice Gonzalez Other Provider DO Bernabe Cr Attending Provider MD Margarito Valentine Attending Provider MD Margarito Valentine Admit Provider [phone] MOMO Omalley Attending Provider Carlene Kasper Unavailable [...] DR PETERSON Consulting Unavailable ZIEBER, DR LORENZO Macias Consulting Unavailable HEMEYER ., DR PETERSON Primary Care Unavailable VANDA ., MARILYN Admitting Unavailable VANDA ., MARILYN Attending Unavailable VANDA ., MARILYN Consulting Unavailable HEMEYER ., DR PETERSON Primary Care Unavailable HAY ., DR GALEANO Admitting Unavailable HAY ., DR GALEANO Attending Unavailable HAY ., DR GALEANO Consulting Unavailable HEMEYER ., DR PETERSON Primary Care Unavailable ZIEBER, DR LORENZO Macias Consulting Unavailable HAY ., DR GALEANO Admitting Unavailable HAY ., DR GALEANO Attending Unavailable HAY ., DR GALEANO Consulting Unavailable Al, Dr. Teo Poon Attending Araceli vailable Idania, Dr. Stanley Mercado Primary [facility] Unava ilable Hemeyer, Dr. Stanley Mercado Primary [facility] Unava ilable Hemeyer, Dr. Stanley Mercado Primary [facility] Unava ilable Al, Dr. Teo Poon Attending Araceli vailable Al, Dr. Teo Poon Referring Araceli vailable Hemeyer, Dr. Stanley Mercado Primary [facility] Unava ilable Hemeyer, Dr. Stanley Mercado Primary [facility] Unava ilable Al, Dr. Teo Poon Referring Araceli vailable Al, Dr. Teo Poon Attending Araceli vailable Al, Dr. Teo Poon Attending Araceli vailable Hemeyer, Dr. Stanley Mercado Primary [facility] Unava ilable Hemeyer, Dr. Stanley Mercado Primary Care Unava lucille Al, Dr. Teo Poon Attending Araceli vailable [...] Provider DO Mckay Yeboah Jr Other Provider [phone] MD Ryley Hoyt Other Provider ROCIO Randle Other Provider Unavailable ROCIO Alvarez Other Provider Unavailable ROCIO Delgado Other Provider Unavailable ROCIO Rogel Other Provider Unavailable ROCIO Li Other Provider Unavailable MD Radha Berrios Other Provider DO Khanh Deluca Other Provider MD Ronald Martinez Other Provider [phone] DO Bernabe Cr Other Provider MD Jerrell Gonsales Other Provider MD Mary Ellen Zambrano Other Provider [phone] MD Anand Mckenzie Other Provider Unavailable WATSON Velasco Other Provider MD Jagjit Swenson Other Provider [phone] MD Pawel Sanford Other Provider MD [...] Other Provider DO Lucas Dumas Other Provider WTASON Watkins Other Provider DO Jakob Lomax Other Provider MD Nick Ken Other Provider WATSON Beard Other Provider WATSON Man Other Provider MD Joaquim Mayo Other Provider MD Shane Durham Other Provider DO Tico Whitehead Other Provider DO Alonso Maher Other Provider MD Humberto Bonds P Other Provider MD Chi Smith Other Provider [phone] WATSON Najera Other Provider [phone] MD Dana Haddad Other Provider MD Emmanuel Silverman Other Provider ROCIO Moore Other Provider Unavailable Stanley Emerson MD Primary Care Provider Stanley Emerson MD Unavailable [phone] Stanley Emerson MD Primary Care Provider [phone] Black REFINERY OPERATOR HELPER CRUDE UNIT, Dora Unavailable WATSNO Bailey Attending Provider [phone] WATSON Truong Other Provider [phone] Stanley Emerson MD Unavailable [phone] Stanley Emerson MD Primary Care Provider [phone] Stanley Emerson MD Unavailable [phone] Stanley Emerson MD Primary Care Provider Stanley Emerson MD Primary Care Provider Stanley Emerson MD Primary Care Provider Teo Al MD Attending Provider [phone] Blanca Boles Attending Unavailable Katia SAMUELS Attending Unavailable MOMO OMALLEY Attending Unavailab MOMO Kruger Attending Unavailab MOMO Kruger Attending Unavailab Katia Fong Admitting Unavailable Katia SAMUELS Attending Unavailable Fabi Gomez Attending Unavailable Zhang REFINERY OPERATOR [employer] CRU[employer] UNIT, Joi Unavailable Unavailable Black REFINERY OPERATOR [employer] UNIT, Dora Unavailable Talya Bo MD Attending Provider [phone] Stanley Emerson MD Primary Care Provider [phone] Katia SAMUELS Attending Unavailable Fabi Gomez Attending Unavailable Blanca Boles Attending Unavailable Blanca Boles Attending Unavailable Fabi Gomez Attending Unavailable Katia SAMUELS Attending Unavailable Katia SAMUELS Admitting Unavailable Katia SAMUELS Attending Unavailable PATRIA TARVALE Referring Unavailable STANLEY EMERSON Primary Care Unavailable SERVANDO HALL S Attending Unavailable STANLEY EMERSON Primary Care Unavailable SERVANDO HALL S Admitting Unavailable SERVANDO HALL S Attending Unavailable FILI GANDARA Consulting Unavailable SHAHRIAR LEWIS Referring Unavailable FROY RAZO Consulting Unavailable GOLDY GARLAND Consulting Unavailable HEATHER ROMO Consulting Unavailable MORIS BARRAGAN Consulting Unavailable Ruby Montana MD Unavailable Robe Hansen DO Attending Provider TEO AL Referring Unavailable STANLEY EMERSON Primary Care Unavailable RUBY MONTANA Admitting Unavailable RUBY MONTANA Attending Unavailable STANLEY EMERSON Primary Care Unavailable Stanley Emerson MD Primary Care Provider Margarito Valentine MD Attending Provider Joi Zhang LPN Unavailable Stanley Emerson Primary Care Unavailable Margarito Valentine Admitting UnavailMargarito Lara Attending Unavailabl e Stanley Emerson Primary Care Unavailable Margarito Valentine Attending UnavailMargarito Lara Admitting UnavailTeo Diez Admitting Unavailable Teo Al Attending Unavailable Stanley Emerson Primary Care Unavailable Nas Pruett Attending Unavailable Stanley Emerson Primary Care Unavailable Ledy Randle Consulting Unavailable Nas Pruett Admitting Unavailable Thu Alvarez Consulting Unavailable DensJen velasquez Consulting Unavailable Jennifer Rogel Consulting Unavailable Daisha Li Consulting Unavailable Radha Berrios Consulting Unavailable Khanh Deluca Consulting Unavailable Ronald Martinez Consulting Unavailable Bernabe Cr Consulting Unavailabl Jerrell Haley Consulting Unavailable Mary Ellen Zambrano Consulting Unavailable Anand Mckenzie Consulting Unavailable Roseann Velasco Consulting Unavailabl e [place], Tammyn Consulting Unavailable Pawel Sanford Consulting Unavailable Taz [...] Watkins Consulting Unavailable Jakob Lomax Consulting Unavailable IlanomaNick macias Consulting Unavailable Yaz Beard Consulting Unavailable Venus [...] Lambert Attending Unavailable Willy Lambert Admitting Unavailable Idania, Stanley Rich Primary Care Unavailable Roaslie Bailey Attending Unavailable Rosalie Bailey Admitting Unavailable Teo Al Attending Unavailable Stanley Emerson Primary Care Unavailable Teo Al Admitting Unavailable Robe Hansen Attending Unavailable PayRobe Admitting Unavailable DiabTalya A Attending Unavailable DiabTalya A Admitting Unavailable Hemechery, Edludy J Primary Care Unavailable Rob Peña Attending Unavailab le Rob Peña Admitting Unavailab le STANLEY EMERSON Attending Unavailable STANLEY EMERSON Attending Unavailable HEMESTANLEY GOTTLIEB Attending Unavailable HEMEYERSTANLEY Attending Unavailable HEMEYERSTANLEY Attending Unavailable HEMESTANLEY GOTTLIEB Attending Unavailable HEMESTANLEY GOTTLIEB Attending Unavailable HEMESTANLEY GOTTLIEB Attending Unavailable STANLEY EMERSON Attending Unavailable Fabi Gomez Attending Unavailable MOMO OMALLEY Attending Unavailab Katia Fong Admitting Unavailable Katia SAMUELS Attending Unavailable Katia SAMUELS Attending Unavailable Eboni Anderson Attending Unavailable Idania CASILLAS, Stanley Rich Primary Care Provider Preston Griffin MD Attending Provider Blanca Boles Attending Unavailable Eboni Anderson Attending Unavailable Blanca Boles Attending Unavailable Blanca Boles Attending Unavailable Eboni Anderson Attending Unavailable TEO AL Attending Unavailable TEO AL Referring Unavailable STANLEY EMERSON Primary Care Unavailable TEO AL Attending Unavailable TEO AL M Referring Unavailable STANLEY EMERSON Primary Care Unavailable TEO AL Attending Unavailable STANLEY EMERSON Primary Care Unavailable RUBY MONTANA Attending Unavailable TEO AL M Referring Unavailable STANLEY EMERSON Primary Care Unavailable Black REFINERY OPERATOR [employer] UNIT, Dora Unavailable Christina Goddard LPN Unavailable Unavailable Allergies Allergy ClassificationReported Allergen(s)Allergy TypeDate of OnsetReaction(s) Facility (4 sources)No Known Medication Allergies; Translations: [No Known Medication Allergies]Propensity to adverse reactions (disorder)[facility] Rep[facility] Medications Current Medications MedicationDrug Class(es)DatesSig (Normalized)Sig (Original)Acetaminophen (4 sources)Start: 07-69-4830catqgujqqyzvy (TYLENOL) tablet 650 mgtake 2 tablets by mouth every eight hoursAcetaminophen ER 650 MG 2 tablets as needed Orally every 8 hrs Activeacetaminophen 325 mg / HYDROcodone bitartrate 7.5 mg oral tablet (2 sources)Opioid AgonistStart: 05-14-7865qhss 1 tablet by mouth once, then take 1 tablet by mouth every hourNorco 325 mg-7.5 mg oral tablet 1 tab(s), Oral, Once, 1 tab(s), Refill(s) 0, Take 1 hour prior to procedure, [facility]/pharmacy #[id number], 187, cm, 03/11/23 13:44:00 EDT, Height/Length Dosing, 93, kg, 03/11/2313:44:00 EDT, Weight Dosing Start Date: 05/06/23 Status: [id number] 200 actuat albuterol 0.09 mg/actuat metered dose inhaler (20 sources)beta2-Adrenergic AgonistStart: 97-12-1661kgyk 2 puff(s) by inhalation every six hours as needed for wheezingalbuterol sulfate HFA (PROVENTIL;VENTOLIN;PROAIR) 108 (90 Base) MCG/ACT inhaler Inhale 2 puffs intothe lungs every 6 hours as needed for Wheezing or Shortness of Breath 18 g 10/05/2024 ActiveStart: .5 mg, Nebulization, EVERY 6 HOURS PRN, Starting on 10/02/24 at 1102, Until Discontinued, Wheezing, Initiate RT Bronchodilator Protocol: Yes - Inpatient ProtocolStart: 53-87-9845lcwu 1 puff(s) by inhalation every six hours as needed for wheezingAlbuterol Sulfate 90 mcg/actuation HFA aerosol inhaler Active 2 PUFF INHALATION Every 6 hours as nee ded for shortness of breath or wheezing October 22, 2023 12:00am Complies with drug therapyStart: 09-30-2023 End: 61-81-8208qyoa 2 puff(s) by inhalation every six hours for wheezing albuterol HFA 90 mcg/act inhaler Indications: Simple chronic bronchitis (HCC) Inhale 2 puffs every 6 (six) hours if needed for wheezing 54 g 1 09/30/2023 ActiveStart: 01-91-7721zxbq 2 puff(s) by inhalation every four hoursalbuterol 90 mcg/actuation inhaler Inhale 2 puffs every 4 hours if needed. 12/17/2022 Active Start: 23-95-0639Uuwlhnaii Sulfate HFA 108 (90 Base) MCG/ACT Inhalation Aerosol Solution Quantity: 54 Refills: 0 Ordered: 03-Jun-2022 DO Start : 03-Jun-2022 ActiveStart: 05-16-2022 End: 92-12-7903akuc 1 puff(s) by inhalation three times daily [...] HFA) 90 mcg/inh inhalation aerosol (20 sources)Start: 76-56-6869Cbigcxper (Eqv-ProAir HFA) 90 mcg/inh inhalation aerosol Refill(s) 0 Start Date: 06/10/22 Status: Ordered Repeat number: 1Start: 77-35-7930Ailwdokxt (Eqv-ProAir HFA) 90 mcg/inh inhalation aerosol Refill(s) 0 Start Date: 06/10/22 Status: Orderedamiodarone hydrochloride 200 mg oral tablet (20 sources)AntiarrhythmicStart: 02-10-2024 End: 61-86-0592cwvjvnryfr 200 mg Tab 200 mg = 1 tab(s), Refills(s) 0 Start Date: 04/06/24 Status: Ordered Repeat number: 1Start: 01-23-2024 End: 03-05-7815rfhs 1 tablet by mouth twice dailyAmiodarone 200 mg Tablet Discontinued 200 MG PO Twice daily January 23, 2024 12:00am 2023 12:52pmamLODIPine 5 mg oral tablet (20 sources)Dihydropyridine Calcium Channel BlockerStart: 90-13-8794akys 5 mg by mouth twice dailyamlodipine 5 mg, Oral, BID, Refills(s) 0 Start Date: 04/06/24 Status: Ordered Repeat number: 1Start: 12-31-2023 End: 15-38-6816seon 1 tablet by mouth once dailyAmlodipine 5 mg tablet Discontinued 5 MG PO Daily December 31, 2023 12:00am January 23, 2024 2:59pm Start: 06-10-2023 End: 32-08-8150btca 1 tablet by mouth twice dailyAmlodipine 5 mg tablet Discontinued 5 MG PO Twice daily October 22, 2023 12:00am November 14, 2023 9:36am Start: 30-56-3824thih 1 tablet by mouth every twelve hoursNorvasc 5 MG 1 tablet Orally bid for 90 days Mar, ActiveStart: 54-09-5623drwf 1 tablet by mouth every twenty-four hoursNorvasc 5 MG 1 tablet Orally Once a day for 90 days Mar, Activeapixaban 2.5 mg oral tablet (20 sources)Factor Xa InhibitorStart: 01-23-2024 End: 80-92-6366Ztovhod 2.5 mg oral tablet Refills(s) 0 Start Date: 04/06/24 Status: Ordered Repeat number: 1atorvastatin 80 mg oral tablet (20 sources)HMG-CoA Reductase InhibitorStart: 51-23-8264btnf 1 tablet by mouth at bedtimeatorvastatin (Lipitor) 80 MG tablet Take 80 mg by mouth at bedtime 01/16/2024 Activecephalexin 250 mg oral capsule (20 sources)Cephalosporin AntibacterialStart: 46-71-2384vusp 1 capsule by mouth three times weeklycephalexin (Keflex) 250 MG capsule Take 250 mg by mouth 3 (three) times a week On Friday, Friday, Friday10/22/2024 ActiveStart: 07-25-1052bqoc 1 capsule by mouth once dailyKeflex 500 mg Cap 500 mg = 1 cap(s), Oral, Daily, Take 1 capsule the day before the procedure and 1capsule after the procedure, # 2 cap(s), Refills(s) 0, Pharmacy: [facility]/pharmacy #[id number], 187, cm, 07/15/24 10:46:00 EST, Height/Length Dosing, 93, kg, 07/15/24 10:46:00 EST, Weight Dosing Start Date: 09/24/24 Status: Ordered Quantity: 2.0 Unit: cap(s) Repeat number: 1Start: 09-09-2024 End: 00-25-5169Fhengv 250 mg Cap 250 mg = 1 cap(s), Oral, MonWedFri, X 30 day(s), # 13 cap(s), Refills(s) 11, Pharmacy: [facility]/pharmacy #[id number], 187, cm, 07/15/24 10:46:00 EST, Height/Length Dosing, 93, kg, 07/15/24 10:46:00 EST, Weight Dosing Start Date: 09/09/24 Stop Date: 09/04/25 Status: Ordered Quantity: 13.0 Unit:cap(s) Repeat number: 12Start: 52-78-1843topn 1 capsule by mouth once dailyKeflex 250 mg Cap 250 mg = 1 cap(s), Oral, Daily, # 30 cap(s), Refills(s) 1, Pharmacy: [facility]/pharmacy#[id number], 187, cm, 07/15/24 10:46:00 EST, Height/Length Dosing, 93, kg, 07/15/24 10:46:00 EST, Weight Dosing Start Date: 07/15/24 Status: OrderedStart: 06-22-2024 End: 03-17-0234qqsw 1 capsule by mouth in the morningcephalexin (Keflex) 250 mg capsule Take 1 capsule (250 mg) by mouth early in the morning.. 07/18/2024 10/08/2024 Discontinued (Med List Cleanup)Start: 04-28-2024 End: 24-21-3598nedn 1 capsule by mouth in the morning, then take 1 capsule by mouth in the evening, then take 1 capsule by mouth at bedtimecephalexin (Keflex) 500 MG capsule Take 500 mg by mouth in the morning and 500 mg in the evening and 500 mg before bedtime. 04/28/2024 05/13/2024 Discontinued (Therapy completed) Start: 50-26-0561lhlp 1 mg by mouth every twelve hoursKeflex 500 mg Cap mg cap(s), Oral, q12hr, Refills(s) 0 Start Date: 10/03/23 Status: Ordered End: 35-02-4257dlxe 1 capsule by mouth three times dailycephalexin (Keflex) 500 mg capsule Take 1 capsule (500 mg) by mouth 3 times a day. 02/10/2024 Discon tinued (Other)clopidogrel (20 sources)P2Y12 Platelet InhibitorStart: 88-23-9094vlvbhovspye 75 mg, Refills(s) 0 Start Date: 04/06/24 Status: Ordered Repeat number: 1Start: 04-87-2895hgmztiakkph 75 mg, Refills(s) 0 Start Date: 04/06/24 Status: Ordered Start: 40-82-4666lpjk 1 tablet by mouth once dailyClopidogrel 75 mg tablet Active 75 MG PO Daily August 11, 2024 12:00am Complies with drug therapyStart: 15-36-5192ymgbzubruwc (Plavix) 75 mg tablet Indications: 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 of [place] heart without angina pectoris Patient will take 4 tablets ( 300mg) one time only, then will take one tablet daily 90 tablet 3 03/05/2024 Activedonepezil hydrochloride 10 mg oral tablet (17 sources)Start: 11-19-2024 End: 71-59-4538swqa 2 tablets by mouth at bedtimedonepezil (Aricept) 10 MG tablet Indications: 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 disturbance, psychotic disturbance, mood disturbance, or anxiety (HCC) Take 2 tablets (20 mg) by mouth at bedtime 11/19/2024 05/18/2025 ActiveStart: 10-22-2024 End: 76-14-0198hczy 1 tablet by mouth once daily at bedtimedonepezil 10 mg Tab 10 mg = 1 tab(s), Oral, Once a day (at bedtime) Start Date: 11/16/24 Status: Jefferybell red Repeat number: 11 ml enoxaparin sodium 100 mg/ml prefilled syringe (1 source)Low Molecular Weight HeparinStart: 06-86-6780qyuhbstcmb (Lovenox) 100 mg/mL syringe Indications: Cardiomyopathy, ischemic [...] 3 each 10/08/2024 ActiveFerric Carboxymaltose (3 sources)Start: 15-72-9669nbjgru 100 mg intravenously every weekStart: 11-02-2024 End: 94-14-7293dcepvb 100 mg intravenously every weekFerric Carboxymaltose (Injectafer) 100 mg iron/2 mL solution Discontinued 750 MG IV Q7D November 02, 025 12:00am December 06, 2024 4:11pmStart: 30-65-8239zfgbsn 100 mg intravenously every weekFerric Carboxymaltose (Injectafer) 100 mg iron/2 mL solution Active 750 MG IV Q7D November 02, 2024 12:00amferrous sulfate 325 mg oral tablet (20 sources)Start: 39-78-5021lfan 325 mg by mouth once daily at nzrzweeer080 mg, Oral, DAILY WITH BREAKFAST, First dose (after last modification) on Fri10/06/24 at 0800, Until DiscontinuedStart: 08-11-2024 End: 17-44-7528aigo 1 tablet by mouth twice dailyFerrous Sulfate 325 mg (65 mg iron) tablet Active 325 MG PO Twice daily 180 November 29, 2024 4:34pm Complies with drug therapyStart: 54-95-1563jfjh 1 tablet by mouth once dailyferrous sulfate (as elemental iron) 45 mg oral tablet, extended release 45 mg = 1 tab(s), Oral, Daily, # 30 tab(s), Refills(s) 0 Start Date: 03/02/24 Status: Ordered Quantity: 30.0 Unit: tab(s) Repeatnumber: 1Start: 10-22-2023 End: 17-33-7500cerk 1 tablet by mouth once dailyFerrous Sulfate [...] oral tablet (20 sources)Loop DiureticStart: 05-03-2024 End: 75-80-6598ecnj 1 tablet by mouth once dailyFurosemide 40 mg tablet Active 0 .ROUTE .COMPLEX 90 January 02, 2025 2:55pm TAKE 1 TABLET BY MOUTHEVERY DAY Complies with drug therapyStart: 02-04-2024 End: 25-20-3765aeze 1 tablet by mouth in the morningfurosemide (Lasix) 40 MG tablet Take 40 mg by mouth in the morning. 02/04/2024 Activeinulin 2000 mg chewable tablet (12 sources)Start: 03-52-2271goar 1 tablet by mouth once dailyInulin (Fiber Gummies) 2 gram tablet,chewable Active 2 GM PO Daily December 31, 2023 12:00am Complies with drug bdszdim55 ml magnesium sulfate 40 mg/ml injection (1 [...] (20 sources)Thyroid Hormone Synthesis InhibitorStart: 07-15-2024 End: 44-65-3078dbty 1 tablet by mouth in the morningmethIMAzole (Tapazole) 5 MG tablet Take 1 tablet (5 mg) by mouth in the morning and 1 tablet (5 mg)before bedtime. 60 tablet 11 07/29/2024 07/29/2025 ActiveStart: 05-24-2024 End: 04-67-2701owin 2.5 mg by mouth in the morningmethIMAzole (Tapazole) 5 MG tablet Take 2.5 mg by mouth in the morning and 2.5 mg in the evening. 05/24/2024 08/03/2024 Discontinued (Dose adjustment)Start: 05-24-2024 End: 32-98-0087wyik 0.5 tablet by mouth twice dailymethIMAzole (Tapazole) 5 mg tablet Indications: High risk medication use , Hyperthyroidism Take 0.5tablets (2.5 mg) by mouth 2 times a day. 90 tablet 3 05/24/2024 07/29/2024 Discontinued (Reorder)metoprolol tartrate 25 mg oral tablet (20 sources)beta-Adrenergic BlockerStart: 35-51-5446vfwv 25 mg by mouth once dailymetoprolol 25 mg, Oral, Daily, Refills(s) 0 Start Date: 07/15/24 Status: Ordered Repeat number: 1Start: 05-21-2024 End: 62-14-1899fmub 1 tablet by mouth every twenty-four hours in the morning metoprolol succinate XL (Toprol-XL) 25 MG 24 hr tablet Take 25 mg by mouth in the morning. 05/21/2024 05/21/2025 ActiveStart: 05-21-2024 End: 13-82-5799felt 1 tablet by mouth once dailyMetoprolol Succinate 25 mg tablet extended release 24 hr Active 25 MG PO Daily August 11, 2024 12:00am Complies with drug therapyStart: 33-22-2345Wwpgdhpdce tartrate 50 mg Tab Refills(s) 0 Start Date: 06/10/22 Status: OrderedStart: 05-16-2022 End: 97-96-7511ikno 1 tablet by mouth twice dailyMetoprolol Tartrate [...] mouth once daily. ActiveMultivitamin preparation (20 sources)Start: 95-90-2713itqo 1 tablet by mouth once dailyMultivitamin Active 1 TAB PO Daily October 22, 2023 12:00amStart: 33-73-9619csnlhvcclmex Daily, Refill(s) 0 Start Date: 07/31/22 Status: Ordered Repeat number: 1Start: 07-31-2022 multivitamin Daily, Refill(s) 0 Start Date: 07/31/22 Status: OrderedMultivitamin ActiveMultivitamin tablet (7 sources)Start: 47-91-2840ffxy 1 tablet by mouth once dailyMultivitamin tablet Active 1 TAB PO Daily October 22, 2023 12:00am Complies with drug therapyStart: 99-31-1161hvnd 1 tablet by mouth once dailyMultivitamin tablet Active 1 TAB PO Daily October 22, 2023 12:00amnitroglycerin 0.4 mg sublingual tablet (20 sources)Nitrate VasodilatorStart: 26-78-7246kbuliaovdvhoa (Nitrostat) 0.[address] 0.4 mg under the tongue every 5 (five) minutes if needed for chest pain 01/16/2024 Activeondansetron (ZOFRAN-ODT) disintegrating tablet 4 mg (1 source)Start: 08-67-0134ddxfzaoylho (ZOFRAN-ODT) disintegrating tablet 4 mg24 hr oxybutynin chloride 10 mg extended release oral tablet (1 source)Cholinergic Muscarinic AntagonistStart: 66-41-5425upqn 1 tablet by mouth once dailyoxybutynin 10 mg ER Tab 10 mg = 1 tab(s), Oral, Daily, # 14 tab(s), Refills(s) 0, Pharmacy: [facility]/pharmacy #[id number], 187, cm, 06/10/23 13:43:00 EST, Height/Length Dosing, 93, kg, 03/11/23 13:44:00 EDT, Weight Dosing Start Date: 06/11/23 Status: Orderedmicroencapsulated potassium chloride 20 meq extended release oral tablet (20 sources)Start: 76-81-2812oodnmhppc chloride (KLOR-CON M) extended release tablet 40 mEqStart: 02-08-8945Ndqm-Con 20 mEq, Refills(s) 0 Start Date: 04/06/24 Status: Ordered Repeat number: 1Start: 43-43-8081Dkjz-Con 20 mEq, Refills(s) 0 Start Date: 04/06/24 Status: OrderedStart: 03-08-2024 End: 49-84-4665Crrnsvfls Chloride (Klor-Con M20) 20 mEq tablet,ER particles/crystals Discontinued 10 MEQ PO Daily August 11, 2024 10:30am November 03, 2024 4:02pmStart: 02-18-2024 End: 90-07-4589muhzoghni chloride CR (Klor-Con M20) 20 MEQ ER tablet Take 20 mEq by mouth Daily 01/28/2025 ActivepredniSONE 10 mg oral tablet (3 sources)predniSONE 10 MG as directed Orally take 4 tablets daily x3 days, take 3 tablets for 3 days, 2 tablets for 3 days, 1 tablet for 3 days Active QUEtiapine 25 mg oral tablet (20 sources)Atypical AntipsychoticStart: 03-53-9828jgke 1 tablet by mouth once dailyQuetiapine 25 mg tablet Active 25 MG PO Daily March 09, 2025 12:00am Complies with drug therapyStart: 64-94-3914tljc 1 tablet by mouth three times dailyquetiapine 25 mg Tab 25 mg = 1 tab(s), Oral, TID Start Date: 11/16/24 Status: Ordered Repeat number:1Start: 10-02-2024 End: 48-57-5164kweh 1 tablet by mouth once daily at bedtimeQuetiapine 25 mg tablet Discontinued 25 MG PO Daily at bedtime October 11, 2024 12:00am November 03, 2024 4:02pmSpacer/Aero-Holding Chambers (BreatheRite Dulce Spacer Adult) misc (20 sources)Start: 19-04-9309Npquds/Aero-Holding Chambers (BreatheRite Dulce Spacer Adult) misc Indications: Simple chronic bronchitis (HCC) 2 puffs 4 (four) times a day as needed (sob and cough) 1 each 02/17/2024 ActiveStart: 02-17-2024 Spacer/Aero-Holding Chambers (BreatheRite Dulce Spacer Adult) misc Indications: Simple chronic bronchitis (CMS/HCC) 2 puffs 4 (four) times a day as needed (sob and cough) 1 each 02/17/2024 Activeticagrelor 90 mg oral tablet (20 sources)Start: 35-93-4693mvbh 1 tablet by mouth every twelve hoursBrilinta 90 MG tablet Take 90 mg by mouth every 12 (twelve) hours 01/16/2024 ActiveStart: 01-16-2024 End: 12-47-9282jyry 1 tablet by mouth twice dailyTicagrelor (Brilinta) 90 mg Tablet Discontinued 90 MG PO Twice daily 180 90 January 16, 2024 12:00am August 11, 2024 10:30amVitafusion Fiber Well + Probiotics Gummies oral tablet, chewable (13 sources)Start: 29-62-1564iggr 1 tablet by mouth once dailyVitafusion Fiber Well + Probiotics Gummies oral tablet, chewable tab(s), Oral, Daily, Refill(s) 0 Start Date: 03/02/24 Status: Ordered Repeat number: 1Start: 30-81-7482inqq 1 tablet by mouth once dailyVitafusion Fiber [...] Hazardous med- See facility policy for handling/disposalStart: 89-94-1955qyeq 0.5 tablet by mouth once dailywarfarin (COUMADIN) 2 MG tablet Take 0.5 tablets by mouth daily 04/21/2024 ActiveStart: 64-42-7131nvyh 1 tablet by mouth once dailywarfarin (Coumadin) 2 MG tablet Take 2 mg by mouth 1 (one) time each day 5 days a week (Friday, Friday, Friday, Friday and Friday) 04/21/2024 ActiveStart: 25-79-3545ttuokztk 2 mg Tab 2 mg = 1 tab(s), Refills(s) 0 Start Date: 04/06/24 Status: OrderedStart: 03-05-2024 End: 96-57-6821gfdrtmhg (Coumadin) 5 mg tablet Indications: Paroxysmal atrial fibrillation (Multi) Take one tabletdaily in the evening. Follow with [facility]. Patient will take coumadin and eliquis together for 3 days only 14 tablet 03/05/2024 03/04/2025 Activewarfarin placeholder: dosing by pharmacy (1 source)Start: 81-59-7236Egoigr contact the pharmacy if a dose is not entered by 1600. Review INR prior to warfarin administration.water 1000 mg/ml irrigation solution (9 sources)Start: 29-25-2368cpvpwbt water irrigation solution Refill(s) 0 Start Date: 04/06/24 Status: OrderedStart: 17-33-7587wiooddq water irrigation solution See Instructions, 500 mL, Refill(s) 1, Irrigate zapien catheter asneeded with 60 cc sterile water, [facility]/pharmacy #[id number], 187, cm, 10/03/23 14:11:00 EDT, Height/Length Dosing, 93, kg, 10/03/23 14:11:00 EDT, Weight Dosing Start Date: 10/03/23 Status: Ordered Completed/Discontinued Medications MedicationDrug Class(es)DatesSig (Normalized)Sig (Original)ARIPiprazole 5 mg oral tablet (20 sources)Atypical AntipsychoticStart: 11-03-2024 End: 21-53-0121nsno 1 tablet by mouth once dailyAripiprazole 5 mg tablet Discontinued 5 MG PO Daily November 03, 2024 12:00am March 09, 2025 2:28pm Start: 10-15-2024 End: 74-61-2215qxud 2.5 mg by mouth at bedtimeARIPiprazole (Abilify) 5 MG tablet Take 2.5 mg by mouth at bedtime 10/15/2024 11/09/2024 Discontinued (Med list cleanup)Start: 09-23-2024 End: 41-46-7334Htoohhxuunct 2 mg tablet Discontinued 2 MG PO September 23, 2024 12:00am October 11, 2024 12:28pmStart: 09-21-2024 End: 75-19-5326giiq 0.5 tablet by mouth at bedtimeARIPiprazole (Abilify) 2 MG tablet Indications: Hallucinations Take 0.5 tablets (1 mg) by mouth at bedtime 15 tablet 09/21/2024 10/19/2024 Discontinued (Discontinued by another clinician) aspirin 81 mg delayed release oral tablet (20 sources)Platelet Aggregation Inhibitor, Nonsteroidal Anti-inflammatory Drug Start: 10-22-2023 End: 28-39-4497Mkxvrrb (Adult Low Dose Aspirin) 81 mg tablet,delayed release (DR/EC) Discontinued 81 MG PO Daily October 22, 2023 12:00am January 23, 2024 2:59pmStart: 30-87-8112ahfe 1 tablet by mouth once dailyAspirin 81 MG Oral Tablet Delayed Release TAKE 1 TABLET DAILY. Quantity: 90 Refills: 3 Ordered: 22-Jan-2023 Teo Al MD Start : 22-Jan-2023 ActiveStart: 05-16-2022 End: 25-18-1134xtwy 1 tablet by mouth once dailyAspirin 81 mg Tablet Discontinued 81 MG PO Daily May 16, 2022 1:00am June 21, 2022 11:01 am On Hold: Resume on 06/26/22. Hold this until after your abdominal aortic aneurysm is treated.azithromycin (ZITHROMAX) 500 mg in sodium chloride 0.9 % 250 mL IVPB (Juap7Mwf) (1 source)Start: 10-02-2024 End: 76-09-7755392 mg, IntraVENous, EVERY 24 HOURS, 2 doses, First dose on 10/02/24 at 1200, Last dose on 10/03/24 at 1200, Antimicrobial Indications: Pneumonia (CAP), CAP duration of therapy: 3 days, Use 20mm (Blue) [id number] Adapter Preparation instructions: Attach medication vial to one 20mm (Blue) [id number] adapter. James fluid bag with adapter, mix, and administer per order. benzonatate 100 mg oral capsule (10 sources)Non-narcotic AntitussiveStart: 03-08-2024 End: 50-88-3054tyra 1 capsule by mouth three times dailyBenzonatate 100 mg capsule Discontinued 100 MG PO Three times daily 13 12March 08, 2024 12:00am August 11, 2024 10:30amcefTRIAXone (ROCEPHIN) 1,000 mg in sterile water 10 mL IV syringe (1 source)Start: 10-02-2024 End: 59-82-5995wfsm 100 mg intravenously every twenty-four hours1,000 mg, IntraVENous, EVERY 24 HOURS, First dose on Fri10/02/24 at 1200, For 4 days, Administer asslow IV Push over 5 mins Reconstitute 1 g vials with 9.6 mL of designated diluent to produce a 100 mg/mL solution.cefuroxime 500 mg oral tablet (2 sources)Cephalosporin AntibacterialStart: 02-17-2024 End: 89-18-0051kzos 1 tablet by mouth in the morningcefuroxime (Ceftin) 500 MG tablet Indications: Pneumonia of left lower lobe due to infectious organism Take 1 tablet (500 mg) by mouth in the morning and 1 tablet (500 mg) before bedtime. Do all thisfor 7 days. 14 tablet 02/17/2024 02/25/2024 Discontinued (Therapy completed)ciprofloxacin 250 mg oral tablet (11 sources)Quinolone AntimicrobialStart: 10-05-2024 End: 81-21-4614hhnf 1 tablet by mouth every twelve hoursciprofloxacin (CIPRO) 250 MG tablet Take 1 tablet by mouth every 12 hours for 9 doses 9 tablet 10/0510/05/2024 Discontinued (Stop Taking at Discharge)Start: 10-05-2024 End: 04-91-9318353 mg, Oral, EVERY 12 HOURS SCHEDULED (2 [...] do not give by J tube. Start: 49-26-6420evvu 1 tablet by mouth once dailyCipro 500 mg Tab = 1 tab(s), Oral, Daily, Refills(s) 0 Start Date: 04/06/24 Status: OrderedStart: 12-03-2022 take 1 tablet by mouth once dailyCipro 250 mg Tab 250 mg = 1 tab(s), Oral, Daily, Take 1 tablet the day before the procedure and 1 tablet after the procedure, # 6 tab(s), Refills(s) 0, Pharmacy: [facility]/pharmacy #[id number], 187, cm, 09/18/2313:39:00 EDT, Height/Length Dosing, 93, kg, 09/18/22 14:39:00 EDT, Weight Dosing Start Date: 12/03/22 Status: OrderedStart: 86-20-1522ryzn 1 tablet by mouth once dailyCipro 250 mg Tab 250 mg = 1 tab(s), Oral, Daily, Take 1 tablet the day before the procedure and 1 tablet after the procedure, # 2 tab(s), Refills(s) 0, Pharmacy: [facility]/pharmacy #[id number], 187, cm, 239:11:00 EST, Height/Length Dosing, 93.5, kg, 06/11/22 9:11:00 EST, W... Start Date: 07/25/22 Status: Ordereddoxycycline hyclate 100 mg oral capsule (10 sources)Tetracycline-class DrugStart: 03-08-2024 End: 41-60-8365cfxjsuncizz (Vibramycin) 100 MG capsule Indications: Pneumonia Take 100 mg by mouth in the morning and 100 mg before bedtime. Take with at least 8 ounces (large glass) of water, do not lie down for 30 minutes after. 03/08/2024 03/19/2024 ExpiredStart: 03-08-2024 End: 52-83-5938lmul 1 capsule by mouth twice dailyDoxycycline Hyclate 100 mg capsule Discontinued 100 MG PO Twice daily 14 03March 08, 2024 12:00am August 11, 2024 10:30amfolic acid 1 mg oral tablet (20 sources)Start: 90-94-4309livnr acid 1 mg Tab Refills(s) 0 Start Date: 06/10/22 Status: OrderedStart: 05-22-2022 End: 75-63-4513Dsvab Acid 1 mg tablet Discontinued 1000 MCG PO Daily at bedtime June 21, 2022 11:02am October 22, 2023 11:05amStart: 05-22-2022 End: 63-81-2831mzcu 1000 ug by mouth once daily at bedtimeFolic Acid Discontinued 1000 MCG PO Daily at bedtime June 21, 2022 11:02am October 22, 2023 11:05am10 ml iron sucrose 20 mg/ml injection (7 sources)Parenteral Iron ReplacementStart: 10-25-2024 End: 02-25-8393Hlre Sucrose (Venofer) 200 mg iron/10 mL solution Discontinued 200 MG IV Q3D October 25, 2024 12:00amJun2024 9:27am administer over 30 minsStart: 10-21-2024 End: 57-72-6702Iysh Sucrose (Venofer) 200 mg iron/10 mL solution Discontinued 200 MG IV every week 50 October 25, 2024 2:24pm October 25, 2024 2:27pm administer over 2-5 minsStart: 10-04-2024 End: 34-98-5549344 mg, IntraVENous, ONCE, On Fri10/04/24 at 0900, [...] stable.melatonin 3 mg oral tablet (1 source)Start: 95-37-2354rkqh 3 mg by mouth once daily as needed3 mg, Oral, NIGHTLY PRN, Starting on Fri10/04/24 at 1903, Until Discontinued, SleepMulti Vitamin Oral Tablet (1 source)take 1 tablet by mouth once dailyMulti Vitamin Oral Tablet TAKE 1 TABLET DAILY. Quantity: 0 Refills: 0 Ordered: 22-Jan-2023 DO Activepolyethylene glycol 3350 68245 mg powder for oral solution (1 source)Osmotic LaxativeStart: g, Oral, DAILY PRN, Starting on 10/02/24 at 1050, Until Discontinued, Constipation, First line therapy for constipationPotassium Chloride (Klor-Con M20) 20 mEq tablet,ER particles/crystals (8 sources)Start: 03-08-2024 End: 86-81-9200Pzzplxkdf Chloride (Klor-Con M20) 20 mEq tablet,ER particles/crystals Discontinued MEQ PO March 08, 2024 12:00am August 11, 2024 10:33amStart: 41-83-3222Enzzsrzah Chloride (Klor-Con M20) 20 mEq tablet,ER particles/crystals Active MEQ PO March 08, 2024 12:00am24 hr rivastigmine 0.192 mg/hr transdermal system (8 sources)Start: 10-11-2024 End: 63-95-4073peaae 1 dose transdermal route every hour, then apply 1 dose transdermal route every twenty-four hoursRivastigmine (Exelon Patch) 4.6 mg/24 hour patch 24 hour Discontinued 4.6 MG TRANSDERML Daily October 11, 2024 12:00am March 09, 2025 2:29pmStart: 10-04-2024 End: 63-70-4416yhqct 1 dose transdermal route once dailyrivastigmine (Exelon) 4.6 MG/24HR Place 1 patch on the skin Daily 10/06/2024 10/22/2024 Discontinued (Therapy completed)simvastatin 20 mg oral tablet (20 sources)HMG-CoA Reductase InhibitorStart: 05-16-2022 End: 83-86-4738awny 1 tablet by mouth at bedtimeSimvastatin 20 mg tablet Discontinued 20 MG PO Bedtime May 16, 2022 1:00am January 1542:11pm 1000 ml sodium chloride 9 mg/ml injection (4 sources)Start: 10-02-2024 End: 81-31-8611WelqrNVRndu, at 100 mL/hr, CONTINUOUS, Starting on 10/02/24 at 1130, For 12 hoursStart: 42-69-0935YmjeyOFZsep, at 5-250 mL/hr, PRN, if patient receiving [...] 20 mL/lumenSpacer/Aero-Holding Chambers device (13 sources) End: 37-52-4984Lznudv/Aero-Holding Chambers device every 8 (eight) hours. 05/13/2024 Discontinued (Therapy completed)Spacer/Aero-Holding Chambers device every 8 (eight) hours. Activespironolactone 25 mg oral tablet (19 sources)Aldosterone AntagonistStart: 10-03-2023 End: 00-53-2004pbfq 1 tablet by mouth once dailySpironolactone 25 mg tablet Discontinued 25 MG PO Daily October 22, 2023 12:00am January 23, 2024 2:59pm sulfamethoxazole 800 mg / trimethoprim 160 mg oral tablet (4 sources)Dihydrofolate Reductase Inhibitor Antibacterial, Sulfonamide AntimicrobialStart: 10-05-2024 End: 38-26-8499hjle 1 tablet by mouth once dailySulfamethoxazole-Trimethoprim 800-160 mg tablet Discontinued 1 TAB PO Daily October 11, 2024 12:00am November 03, 2024 4:02pmvitamin b12 1 mg oral capsule (20 sources)Vitamin A21Licxx: 05-22-2022 End: 07-78-9015uete 1 capsule by mouth once daily at [...] involving other coronary artery of anterior wall]Onset: 982108-81-0426OnllycdFyhles; peripheral; and visceral artery aneurysms (20 sources)Abdominal aortic aneurysm; Translations: [Abdominal aneurysm without mention of rupture]Onset: 99-60-0521SjoneunRwxkblp on above:Problem List clean- up per request of Phys. EHR CmteAttention-deficit, conduct, and disruptive behavior disorders (1 source)Other symptoms and signs involving appearance and behavior; Translations: [Other symptoms and signsinvolving appearance and behavior]Onset: 24-57-7574IruwfwcsBccidywi of urinary tract (20 sources)Urinary bladder stone; Translations: [Calculus in bladder]Onset: 30-92-9757VfuxdgbwOgjynq of bladder (20 sources)Malignant tumor of urinary bladder; Translations: [Malignant neoplasm of bladder, unspecified]Onset: 95-70-9382IsjmxfgYutcnp; other and unspecified primary (20 sources)H/O: malignant vrbpjcvo81-89-7972WbysydrpOmhwjyu dysrhythmias (20 sources)Atrial fibrillation; Translations: [Unspecified atrial fibrillation] Onset: 11-11-2022 Resolved: 726131-43-2375GdtnhqgFaowdva kidney disease (20 sources)Chronic kidney disease stage 3B ; Translations: [Chronic kidney disease, stage 3b]Onset: 807500-58-1030LyqmkllPtoinuq kidney disease (6 sources)Chronic kidney disease; Translations: [CHRONIC KIDNEY DISEASE STAGE 3B]Onset: 18-37-7273Mdytekw obstructive pulmonary disease and bronchiectasis (20 sources)Pulmonary emphysema; Translations: [Simple chronic bronchitis]Onset: 257132-35-0105DqqzxfeRexttffydfur of device; implant or graft (5 sources)Other mechanical complication of indwelling urethral catheter, initial encounter; Translations: [Mechanical complication of genitourinary device]Onset: 46-60-0949YegubrjnKiwqnnxigb heart failure; nonhypertensive (20 sources)Chronic systolic heart failure; Translations: [Chronic systolic (congestive) heart failure]Onset: 520930-65-7925CcboktfQfkcisij atherosclerosis and other heart disease (20 sources)Ischemic myocardial dysfunction; Translations: [Ischemic cardiomyopathy]Onset: 815646-48-3250YmiqiyfRrogidvpbi and other anemia (20 sources)Anemia co-occurrent and due to chronic kidney disease stage 3; Translations: [Anemia due to stage 3b chronic kidney disease (HCC)]Onset: 599082-43-2365YmuxfprJskzuwlyqs and other anemia (15 sources)Anemia; Translations: [Anemia, unspecified]42-30-7391Xkphicnr Deficiency and other anemia (13 sources)Anemia, unspecified; Translations: [Anemia, unspecified]10-22-2023 EpisodicDelirium, dementia, and amnestic and other cognitive disorders (20 sources)Dementia; Translations: [Unspecified dementia without behavioral disturbance]Onset: 06-11-2022 Resolved: 66-22-4633DnyccicQuyazjxkw of lipid metabolism (20 sources)Dyslipidemia; Translations: [Other and unspecified hyperlipidemia] Onset: 54-73-2931KocxzygAoheoheep hypertension (20 sources)Hypertensive disorder; Translations: [Unspecified essential hypertension]Onset: 859744-71-8198XbyyhmuWhbie and electrolyte disorders (20 sources)Hyperkalemia; Translations: [Metabolic acidosis]Onset: 05-16-2022 Resolved: 010969-90-5356SlrvnlexGolmlec on above:Problem List clean-up per request of Phys. EHR CmteGenitourinary symptoms and ill-defined conditions (2 sources)Urinary catheter in situ; Translations: [Presence of urogenital implants]07-05-7958UczignbGqflpqlxrzc of prostate (20 sources)Benign prostatic hypertrophy with outflow obstruction; Translations: [Benign prostatic hyperplasia with lower urinary tract symptoms]Onset: 38-10-5141NqduithQppccuqlsjuu with complications and secondary hypertension (20 sources)Hypertensive chronic kidney disease with stage 1 through stage 4 chronic kidney disease, or unspecified chronic kidney disease; Translations: [Hypertensive renal disease]Onset: 02-22-2016 Resolved: 119505-21-4771XcnuihuEjnw effects of cerebrovascular disease (1 source)Other sequelae following unspecified cerebrovascular disease; Translations: [OTH SEQUELAE UNS CEREBROVASCULAR DZ]Onset: 16-60-3345Cinwgcv Occlusion or stenosis of precerebral arteries (20 sources)Atherosclerosis of right carotid artery; Translations: [Occlusion and stenosis of right carotid artery]Onset: 574289-47-8998VylvudiJondm aftercare (1 source)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; Translations: [SENIOR LIVING CURRNT USE ANTICOAGULANTS]Onset: 94-05-2292VmstikdlMpnbt aftercare (17 sources)Taking high risk medication; Translations: [Other prison (current) drug therapy]Onset: 824558-27-4367XouxxwjjVbfdh aftercare (1 source)Long-term current use of anticoagulant; Translations: [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]Onset: 82-02-3011UewqeywuHlnkf aftercare (5 sources)Patient encounter status; Translations: [Encounter for palliative care]Onset: 352295-56-6541BjvjfksjQdlbx and ill-defined cerebrovascular disease (20 sources)Cerebral ischemiaOnset: 975359-29-6057VprikchDandw circulatory disease (1 source)Stented artery; Translations: [Presence of other vascular implants and grafts]64-19-7189NajnuwpUckrc circulatory disease (1 source)Personal history of transient ischemic attack (TIA), and cerebral infarction without residual deficits; Translations: [PERS HX TIA AND CI NO RESID DEFICIT]Onset: 43-50-0863ZyhztjsuCtwxv circulatory disease (11 sources)Low blood pressure; Translations: [Hypotension, unspecified] 57-01-5163UsownlqaZtolz diseases of bladder and urethra (2 sources)Disorder of bladder; Translations: [Other specified disorders of bladder]Onset: 75-74-7555NculqioQjxku diseases of bladder and urethra (20 sources)Mass of urinary bladder; Translations: [Other specified disorders of bladder]79-40-9023WduqyybOdvbsdo on above:Problem List clean-up per request of Phys. EHR CmteOther diseases of bladder and urethra (4 sources)Other specified disorders of bladder; Translations: [Other specified disorders of bladder]61-02-7279NtskfuqFvyhd diseases of bladder and urethra (20 sources)Lesion of sqbojac30-31-3702EfemmrvMeypj diseases of bladder and urethra (1 source)Diverticulum of bladder; Translations: [DIVERTICULUM OF BLADDER]Onset: 16-93-3156VaqtkziMyrlv diseases of bladder and urethra (1 source)Bladder disorder, unspecified; Translations: [BLADDER DISORDER UNSPECIFIED]Onset: 63-89-8030VefqjtbZkwnh diseases of kidney and ureters (2 sources)Disorder of kidney and/or ureter; Translations: [Disorder of kidney and ureter, unspecified]Onset: 37-22-0049DrnrhedhLufnn diseases of kidney and ureters (20 sources)Epylwmkyhcrjsl10-13-8515QlonskraXopvt diseases of kidney and ureters (20 sources)Kidney rqapbx55-73-8461UccpotkgScbyr diseases of kidney and ureters (7 sources)Unspecified hydronephrosis; Translations: [Hydronephrosis]Onset: 774664-47-7527HpywtrotEmese diseases of kidney and ureters (1 source)Urinary tract obstruction; Translations: [Other obstructive and reflux uropathy]Onset: 21-42-8924CzfhhkplXubne diseases of kidney and ureters (15 sources)Obstructive nephropathy; Translations: [Other obstructive and reflux uropathy]62-80-4541WggofxvnJniqf diseases of kidney and ureters (13 sources)Other obstructive and reflux uropathy; Translations: [Other specified disorders of kidney and ureter]60-73-8876TvgfwduxVhsah diseases of veins and lymphatics (1 source)Venous insufficiency (chronic) (peripheral); Translations: [VENOUS INSUFF CHRONIC PERIPHERAL]Onset: 78-79-4010FkrjijfuSuvwj diseases of veins and lymphatics (2 sources)Disorder of vein of lower extremity; Translations: [Venous insufficiency (chronic) (peripheral)]06-54-6123EkopvzvjAyftx ear and sense organ disorders (20 sources)Hearing difficulty; Translations: [Unspecified hearing loss, bilateral]Onset: 695301-30-3900IlscbbgBrxro ear and sense organ disorders (20 sources)Hearing loss; Translations: [Unspecified hearing loss, unspecified ear]Onset: 805416-82-5726LjbohtdPxotp ear and sense organ disorders (2 sources)Mixed conductive and sensorineural hearing loss, bilateral; Translations: [Mixed conductive and sensorineural hearing loss, bilateral] 46-29-1426YwamvkfVvcuu gastrointestinal disorders (20 sources)Diarrhea; Translations: [Diarrhea, unspecified]44-14-2027Mwskopbl Comment on above:Problem List clean-up per request of Phys. EHR CmteOther gastrointestinal disorders (11 sources)Colonic lesion; Translations: [Disease of intestine, unspecified] 36-29-3880ZuvupugzXfald injuries and conditions due to external causes (13 sources)Foreign body in bladder; Translations: [Foreign body in bladder, initial encounter]Onset: 75-32-6427UwtllvntYdqsm nervous system disorders (20 sources)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; Translations: [Circadian rhythm sleep disorder, unspecified type]Onset: 599561-40-6325Gvqezbx Comment on above:Problem List clean-up per request of Phys. EHR CmteOther nervous system disorders (20 sources)Metabolic encephalopathy; Translations: [Metabolic encephalopathy] Onset: 046168-42-6104TjedvemOjahttb on above:Problem List clean-up per request of Phys. EHR CmteOther nervous system disorders (4 sources)Metabolic encephalopathy; Translations: [Metabolic encephalopathy] 10-31-3119XocwepyVacxl nervous system disorders (9 sources)Circadian rhythm sleep disorder, unspecified type; Translations: [Disruption of 24 hour sleep wake cycle, unspecified]Onset: ChronicOther nervous system disorders (11 sources)Abnormal circadian rhythm; Translations: [Circadian rhythm sleep disorder, unspecified type]16-80-4341RvudrbwZhhkb nervous system disorders (1 source)Unspecified disturbances of skin sensation; Translations: [UNS DISTURBANCES OF SKIN SENSATION]Onset: 42-81-6743AsxvvzkdXnnjy nervous system disorders (2 sources)Impaired cognition; Translations: [Other symptoms and signs involving cognitive functions and awareness]32-26-2846CukhdmszFbzun nervous system disorders (1 source)Other symptoms and signs involving cognitive functions and awareness; Translations: [Other symptomsand signs involving cognitive functions and awareness]Onset: 59-44-1117ZtvsjfqqXyjfe nutritional; endocrine; and metabolic disorders (1 source)Other obesity due to excess calories; Translations: [OTHER OBESITY D/T EXCESS CALORIES]Onset: 35-59-8494RkaqrakRuyft nutritional; endocrine; and metabolic disorders (16 sources)Overweight in adulthood with body mass index of 25 or more but less than 30; Translations: [Overweight]Onset: 02-10-2024 Resolved: 650398-92-9411GzvfjvjqHtjjeinqmu and visceral atherosclerosis (1 source)Peripheral vascular disease; Translations: [Peripheral vascular disease, unspecified]44-02-7477KgrrjmjHopyhgbk codes; unclassified (20 sources)Tobacco user; Translations: [Tobacco use]33-45-2629EhfodlvtXpzftys on above:quit april3Problem List clean-up per request of Phys. EHR CmteResidual codes; unclassified (4 sources)Tobacco use; Translations: [Tobacco use disorder]41-67-9570Tjfvtdtp Residual codes; unclassified (14 sources)History of cardiovascular surgery; Translations: [Other specified postprocedural states]60-83-9850IhrbgfwzIaipohqw codes; unclassified (12 sources)Delirium; Translations: [Disorientation, unspecified]01-23-2024 EpisodicResidual codes; unclassified (3 sources)Prevention status; Translations: [Need for prophylaxis against urinary tract infection]82-08-9131NvzjmegcGizzteja codes; unclassified (2 sources)Hallucinations; Translations: [Hallucinations, unspecified]09-21-2024 EpisodicResidual codes; unclassified (1 source)Localized edema; Translations: [Localized edema]Onset: 10-02-2024 EpisodicThyroid disorders (3 sources)Hyperthyroidism; Translations: [Thyrotoxicosis, unspecified without thyrotoxic crisis or storm]Onset: 436569-93-0213VisoktpCkcemssft cerebral ischemia (20 sources)Transient cerebral ischemia; Translations: [Unspecified transient cerebral ischemia]Onset: 904019-20-7648VeaaihnWsqxcoy on above:Problem List clean-up per request of Phys. EHR CmteUnclassified (1 source)ABDOMINAL AA W/O RUPTURE UNSPCIFIED; Translations: [ABDOMINAL AA W/O RUPTURE UNSPCIFIED]Onset: 15-78-1687Rmhuxfhrqtyl (1 source)CONTACT W/AND (SUSP) EXPOS COVID-19; Translations: [CONTACT W/AND (SUSP) EXPOS COVID-19]Onset: 53-53-7195Kmhxttybhkwe (9 sources)Drug therapy senoqbd72-41-2317Lzmqzarvlxxq (2 sources)Abdominal aortic aneurysm, without rupture, unspecified; Translations: [Abdominal aortic aneurysm, without rupture, unspecified]Onset: 50-92-7196Kulecnxxdclh (1 source)Abdominal aortic aneurysm, without rupture, unspecified (CMS-HCC); Translations: [Abdominal aortic aneurysm, without rupture, unspecified (CMS-HCC)]Onset: 00-33-9412Pkdvyih tract infections (20 sources)Urinary tract infectious disease; Translations: [Urinary tract infection, site not specified]Onset: 688531-23-3224MoabyjljYpjobcb on above:Problem List clean-up per request of Phys. EHR CmteViral infection (4 sources)COVID-19; Translations: [COVID-19]Onset: 01-04-2022 Past or Other Problems Problem ClassificationProblemDateDocumented DateEpisodic/ChronicAcute and unspecified renal failure (20 sources)Acute renal failure syndrome; Translations: [Acute kidney failure, unspecified]Onset: 05-16-2022 Resolved: 21-40-2978UoqheqxtUlxsfvf on above:Problem List clean-up per request of Phys. EHR CmteAdministrative/social admission (20 sources)Other reduced mobility; Translations: [Impaired mobility and activities of daily living]Onset: 654277-30-1437BrihhydyRdsbsw of bladder (20 sources)History of malignant neoplasm of bladder; Translations: [Personal history of malignant neoplasm of bladder]Onset: 12-10-2022 Resolved: 44-93-6521QkfuptntQetwpdyt atherosclerosis and other heart disease (20 sources)Stented coronary artery; Translations: [Presence of coronary angioplasty implant and graft]Onset: 01-16-2024 Resolved: 180582-19-2238LrxmlmjlOkjupfvuthuzp symptoms and ill-defined conditions (20 sources)Retention of urine; Translations: [Retention of urine, unspecified] Onset: 06-10-2022 Resolved: 95-16-8354JdznreknCnvbjmw and fatigue (4 sources)Other fatigue; Translations: [OTHER FATIGUE]Onset: 99-73-5676Nxrxebfn Mood disorders (20 sources)Mood disordersOnset: 05-12-2023 Resolved: Nausea and vomiting (1 source)Vomiting, unspecified; Translations: [VOMITING UNSPECIFIED]Onset: 88-78-8775DhvvbyxzFmsdzlmwr of unspecified nature or uncertain behavior (20 sources)Neoplasm of unspecified behavior of bladder; Translations: [Neoplasm of bladder]Onset: 86-18-7840BimfrglvFjikzolctbc deficiencies (20 sources)Cobalamin deficiency; Translations: [Deficiency of other specified B group vitamins]Onset: 610548-71-7800CqonusdvUhtknzc on above:Problem List clean-up per request of Phys. EHR CmteOther aftercare (3 sources)Other prison (current) drug therapy; Translations: [OTH SENIOR LIVING CURRENT DRUG THERAPY]Onset: 18-37-0677YybjnawcNyflp aftercare (1 source)long-term (current) use of aspirin; Translations: [SENIOR LIVING 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]Onset: 87-67-5429EooixgocQigbb aftercare (20 sources)Polypharmacy ; Translations: [Other prison (current) drug therapy]Onset: 178479-96-7878HhbhyapsAyfyt circulatory disease (2 sources)Personal history of other diseases of the circulatory system; Translations: [Personal history of other diseases of the circulatory system] Onset: 94-78-7068WgeukpwuXejrl circulatory disease (5 sources)Hypotension, unspecified; Translations: [Hypotension, unspecified] Onset: 039865-10-5629LehotvmwUttrg circulatory disease (20 sources)H/O: cardiovascular disease; Translations: [Personal history of other diseases of the circulatory system]Onset: 02-22-2016 Resolved: 299624-25-6846IcdxfbecQtgwn circulatory disease (3 sources)Other specified symptoms and signs involving the circulatory and respiratory systems; Translations:[Other symptoms involving respiratory system and chest]Onset: 038017-25-4106NenfvonyPggll diseases of kidney and ureters (20 sources)Hydroureter; Translations: [Hydroureter]Onset: 07-54-5771Jenjkrwf Other diseases of kidney and ureters (20 sources)Bilateral hydronephrosis ; Translations: [Unspecified hydronephrosis]Onset: 246177-67-6198NliodavoBqooh diseases of veins and lymphatics (20 sources)Venous insufficiency of leg; Translations: [Venous insufficiency (chronic) (peripheral)]Onset: 604894-56-6032PonjuhxxLbwwt gastrointestinal disorders (5 sources)Diarrhea, unspecified; Translations: [Diarrhea]Onset: 05-23-2022 51-10-6895YsldwetdPlpbs nervous system disorders (20 sources)White matter disease; Translations: [White matter disease, unspecified]Onset: 845647-73-3185IugcmvtfBujxo nutritional; endocrine; and metabolic disorders (3 sources)Body mass index (BMI) 26.0-26.9, adult; Translations: [BODY MASS INDEX BMI 26.0-26.9 ADULT]Onset: 45-16-2916OvkstxgnDxtae nutritional; endocrine; and metabolic disorders (1 source)Anorexia; Translations: [ANOREXIA]Onset: 72-83-8501ZbhrvymsDicsf nutritional; endocrine; and metabolic disorders (1 source)Abnormal weight loss; Translations: [ABNORMAL WEIGHT LOSS]Onset: 91-14-6014TvkmbgjsFjuzy nutritional; endocrine; and metabolic disorders (20 sources)Overweight; Translations: [Overweight]Onset: 666422-05-9801 EpisodicOther nutritional; endocrine; and metabolic disorders (2 sources)Body mass index (BMI) 25.0-25.9, adult; Translations: [Body mass index (BMI) 25.0-25.9, adult]Onset: 69-13-2586XeohazetWlxip screening for suspected conditions (not mental disorders or infectious disease) (7 sources)Other specified abnormal findings of blood chemistry; Translations: [Prolonged QT interval]Onset: 21-76-4909RcpkocgrMhnrugjss (except that caused by tuberculosis or sexually transmitted disease) (20 sources)Left lower zone pneumonia; Translations: [Pneumonia, unspecified organism]Onset: 515052-17-5261AzwooxzmIfmhslff codes; unclassified (8 sources)Other specified postprocedural states; Translations: [Other postprocedural status]Onset: 12-95-1953OzdyktotIbdcpnrj codes; unclassified (1 source)Chills (without fever); Translations: [CHILLS WITHOUT FEVER]Onset: 22-05-8340UrmlgqzqUuafvvyy codes; unclassified (5 sources)Disorientation, unspecified; Translations: [Other alteration of consciousness]Onset: 970447-84-3160JvdyzfozPcnebphr codes; unclassified (20 sources)Edema of lower extremity; Translations: [Localized edema]Onset: 655581-96-4206BidblscpPupmrzzp codes; unclassified (1 source)Other specified health status; Translations: [Other specified health status]Onset: 69-68-1970DyrewvrrWtjbrubcs and history of mental health and substance abuse codes (20 sources)Ex-smoker; Translations: [Personal history of tobacco use]Onset: 313005-29-7933GbhysxjnRvmdbjv on above:05/17/23 quit;Substance-related disorders (20 sources)Nicotine dependence, cigarettes, uncomplicated; Translations: [Smoker]Onset: 02-23-2015 Resolved: 228411-64-2628ClaisjvChbrcgd on above:1/2 dozen cigarettes; Unclassified (3 sources)Abdominal aortic aneurysm (AAA) without rupture, unspecified part I71.40Unclassified (3 sources)Infrarenal abdominal aortic aneurysm (AAA) without rupture I71.43 Unclassified (20 sources)Onset: 12-31-2023 Resolved: 247823-57-9819Mhrwyooprdox (1 source)Abdominal aortic aneurysm, without rupture, unspecified; Translations: [Abdominal aortic aneurysm, without rupture, unspecified]Onset: 09-10-2024 Unclassified (1 source)Abdominal aortic aneurysm, without rupture, unspecified (CMS-HCC); Translations: [Abdominal aortic aneurysm, without rupture, unspecified (CMS-HCC)]Onset: 05-21-2024 Results Test NameValueInterpretationReference RangeFacilityALL BASIC METABOLIC PANELon 75-51-1516Fyyrp gap [Moles/Vol]16.4 mmol/LNOMS HealthcareCalcium [Mass/Vol]8.8 mg/dL8.5 - 10.1 mg/dLNOMS HealthcareChloride [Moles/Vol]107 mmol/L98 - 107 mmol/LNOMS HealthcareCO2 [Moles/Vol]27.5 mmol/L21.0 - 32.0 mmol/LNOMS Healthcare Creatinine [Mass/Vol]1.80 mg/dLHigh0.70 - 1.30 mg/dLNOMS HealthcareGFR/1.73 sq M.predicted CKD-EPI (S/P/Bld) [Vol rate/Area]44Low>=60 mL/min/1.73m 2NOMS HealthcareGlucose [Mass/Vol]88 mg/dL74 - 106 mg/dLNOMS HealthcarePotassium [Moles/Vol]3.9 mmol/L3.5 - 5.1 mmol/LNOMS HealthcareSodium [Moles/Vol]147 mmol/L Mdnq946 - 145 mmol/LNOMS HealthcareTBH EGFR-NON AF IRAUDQRT93Lip>=60 mL/min/1.73m 2NOMS HealthcareUrea nitrogen [Mass/Vol]26.0 mg/dLHigh7.0 - 18.0 mg/dLNOVT HealthcareUrea nitrogen/Creatinine [Mass ratio]14.4 mg/mgNOVT HealthcareALL LIPID PROFILE (FASTING)on 02-51-8515XVLI HDL RATIO2.2NOMS HealthcareComment on above:3.3 - 4.4 LOW RISK 4.4 - 7.1 AVERAGE RISK 7.1 - 11.0 MODERATE RISK >11.0 HIGH RISK Cholesterol [Mass/Vol]86 mg/dLNINF - 200 mg/dLHermann Area District HospitalCholesterol in HDL [Mass/Vol]39 mg/dLLow40 - 60 mg/dLLAKEVIEW HOSPITAL HealthcareComment on above:> or =60 mg/dl - LOW CARDIOVASCULAR RISK <40 mg/dl - HIGH CARDIOVASCULAR RISK Magnesium [Mass/Vol]33.0 mg/dLLAKEVIEW HOSPITAL HealthcareComment on above:<100 mg/dl OPTIMAL 100-129 mg/dl NEAR OR ABOVE OPTIMAL 130-159 mg/dl BORDERLINE HIGH 160-189 mg/dl HIGH >190 mg/dl VERY HIGH Magnesium [Mass/Vol]14.8 mg/dLHermann Area District HospitalTriglyceride [Mass/Vol]74 mg/dLNINF - 150 mg/dLSaint John's [facility] THYROID STIM HORMONEon 17-08-8415FMR Qn16.644 m[IU]/[facility] MontgomeryCCF Gabby 32-52-4515LJC [Catalytic activity/Vol]18 U/L 15 - 37 U/LNCass Medical CenterNo Panel Informationon 60-39-8541Hmjkjntwfdbwcq and review of laboratory resultsAbHenry Ford West Bloomfield HospitalCLINISYNPrisma Health [facility] Ambulatory Visit Summaryon 86-45-8681Woqsxvfnli Visit SummaryAmbulatory Visit Summary ALEX ANDERSON :1945 [...] APRN, Blanca Hadley Where: [facility] [address] [address]- Medications What How Much When Instructions Unchanged [...] signed up for this yet, please contact [employer] at [phone] to get signed up today. Language Information Language assistance services are available as needed. [facility] HospitalErythrocyte distribution width Auto (RBC) [Ratio]Ordered By: Preston Griffin on 55-32-5213Jauhfjtwgnk distribution width (RBC) [Ratio]15.7 %High11.0-15.0[facility] Glomerular filtration rate (GFR) estimation in non- AmericanOrdered By: Preston Griffin on 80-32-9385WRS/1.73 sq M.predicted among non-blacks MDRD (S/P/Bld) [Vol rate/Area]28 mL/min/{1.73_m2}Low>=60 mL/min/1.73m [address] [place] [address] CBC WITH PLATELET NO DIFFERENTIALon 02-28-2025 Erythrocyte distribution width (RBC) [Ratio]15.7 %High11.0 - 15.0 %[facility] HealthcareHematocrit (Bld) [Volume fraction]38.4 %Low42.0 - 54.0 %[facility] HealthcareHemoglobin (Bld) [Mass/Vol]11.6 g/dLLow14.0 - 18.0 g/dLHermann Area District Hospital Interpretation and review of laboratory resultsAbnormalCox MonettH (RBC) [Entitic mass]26.6 pg25.9 - 34.0 pgCox MonettHC (RBC) [Mass/Vol]30.2 g/dL 29.9 - 35.2 g/dLCox MonettV (RBC) [Entitic vol]88.1 fL80.0 - 94.0 fLHermann Area District HospitalPlatelet mean volume (Bld) [Entitic vol]10 fL9.5 - 13.5 fLWright Memorial Hospital HZX133[address] Louis RBC4.36LowWright Memorial Hospital WBC7.1NOMS [facility] HospitalCLINISYNCNTULSA ER & HOSPITAL – [facility]UL[facility] HealthcareHematocrit Auto (Bld) [Volume fraction]Ordered By: Preston Griffin on 59-03-4820Xrhcwxkyvr (Bld) [Volume fraction]38.4 %Low 42.0-54.0[facility] HospitalHemoglobin [Mass/volume] in Blood Ordered By: Preston Griffin on 37-91-5975Dbzkucgxxe (Bld) [Mass/Vol]11.6 g/dLLow 14.0-18.0[facility] HospitalIron binding capacity [Mass/volume] in Serum or PlasmaOrdered By: Preston Griffin on 20-04-5220Rxab binding capacity [Mass/Vol]301.0 ug/dL250.0-450.0[facility] HospitalIron saturation [Mass Fraction] in Serum or PlasmaOrdered By: Preston Griffin on 91-35-1583Tyxd saturation [Mass fraction]9.6 %[facility] HospitalLaboratory - Chemistry and Chemistry - challengeOrdered By: Preston Griffin on 46-48-9177Cisqeip [Mass/Vol]3.8 g/dL3.4-5.0[facility] HospitalCalcium [Mass/Vol]8.6 mg/dL8.5-10.1FMedina HospitalChloride [Moles/Vol]108 mmol/LHigh 98-107[facility] HospitalCO2 [Moles/Vol]27.9 mmol/L21.0-32.0 [facility] HospitalCobalamin (Vitamin B12) [Mass/Vol]689 pg/mL 232-1245[facility] HospitalComment on above:Performed at: - [facility] [address] [id number] Director: Morgan Carpenter PhD, Phone: [phone] [Mass/Vol]2.27 mg/dLHigh0.70-1.30 [facility] HospitalFerritin [Mass/Vol]59.0 ng/mL26.0-388.0 [facility] HospitalGFR/1.73 sq M.predicted MDRD (S/P/Bld) [Vol rate/Area]34 mL/min/{1.73_m2}Low>=60 mL/min/1.73m 2FMedina HospitalGlucose [Mass/Vol]105 mg/qQ65-707ErvotqgacSalem City HospitalIron [Mass/Vol]29.0 ug/dLLow65.0-175.0[facility] HospitalMagnesium [Mass/Vol]2.3 mg/dL1.8-2.4FMedina HospitalPotassium [Moles/Vol] 3.8 mmol/L3.5-5.1FToledo Hospitalodium [Moles/Vol]145 mmol/L 136-145[facility] HospitalUrate [Mass/Vol]6.5 mg/dL3.5-7.2 [facility] HospitalUrea nitrogen [Mass/Vol]31.0 mg/dLHigh7.0-18.0 [facility] HospitalUrea nitrogen/Creatinine [Mass ratio]13.7 mg/mg [facility] HospitalLaboratory - UrinalysisOrdered By: Preston Griffin on 85-80-9488Fezesrd (U) [Mass/Vol]7.7 mg/dL<=11.9[facility] HospitalLeukocytes [#/volume] corrected for nucleated erythrocytes in Blood by Automated counOrdered By: Preston Griffin on 24-60-0592YPQ corrected for nucl RBC Auto (Bld) [#/Vol]7.1 10 3/uL4.0-11.0[facility] HospitalH Auto (RBC) [Entitic mass]Ordered By: Preston Griffin on 65-59-1559WYN (RBC) [Entitic mass]26.6 pg25.9-34.0[facility] HospitalHC Auto (RBC) [Mass/Vol] Ordered By: Preston Griffin on 23-83-2599GOYF (RBC) [Mass/Vol]30.2 g/dL29.9-35.2 [facility] HospitalV Auto (RBC) [Entitic vol]Ordered By: Preston Griffin on 67-71-4252SCF (RBC) [Entitic vol]88.1 fL80.0-94.0[facility] HospitalNo Panel InformationOrdered By: Preston Griffin on - Hydroxy Vitamin D Total56.8 ng/mLSalem City HospitalComment on above:<20 ng/mL Vit D knzjiwwrx60-<30 ng/mL Vit D gfjgziokhicd58-627 ng/mL Vit D sufficient>100 ng/mL Potential ToxicityFolate>20.0 ng/mL>3.0[facility] HospitalComment on above:A serum folate concentration of less than 3.1 ng/mL isconsidered to represent clinical deficiency.Performed at: [facility] [address] [id number] Director: Morgan Carpenter PhD, Phone: [phone] Hormone (Intact)69 pg/dKKqleocci63-08YlvhwngbfSalem City HospitalComment on above:Performed at: [facility] [address] [id number] Director: Morgan Carpenter PhD, Phone: [phone] Level3.1 mg/dL2.6-4.7FMedina HospitalUrine Random Jocdcfclsk44.47 mg/dLLow20.00-300.00[facility] Platelet mean volume Auto (Bld) [Entitic vol]Ordered By: Preston Griffin on 41-76-5490Mroitavo mean volume (Bld) [Entitic vol]10.0 fL9.5-13.5FMedina HospitalPlatelets Auto (Bld) [#/Vol]Ordered By: Preston Griffin on 89-67-9003Nvknhaymv (Bld) [#/Vol]193 10 3/cZ175-296UzxamyjkkSalem City HospitalRBC Auto (Bld) [#/Vol]Ordered By: Preston Griffin on 93-24-8326DXN (Bld) [#/Vol]4.36 10 6/uLLow4.70-6.10[facility] Youngstownerum or plasma anion gap determinationOrdered By: Preston Griffin on 16-18-9008Cirlq gap [Moles/Vol]12.9 mmol/LFMedina HospitalUrine protein/creatinine ratioOrdered By: Preston Griffin on 49-66-5502Oyukjss/Creatinine (U) [Ratio]0.47 [facility] HospitalAmbulatory Visit Summaryon 81-37-3898Dkenibhbxr Visit SummaryAmbulatory Visit Summary ALEX ANDERSON :1945 Visit Date:02/10/2025 [...] APRN, Blanca Hadley Where: [facility] [address] [address]- Medications What How Much When Instructions Unchanged [...] signed up for this yet, please contact [employer] at [phone] to get signed up today. Language Information Language assistance services are available as needed. [facility] HospitalALL HEMOGLOBINon 02-02-2025 Hemoglobin (Bld) [Mass/Vol]10.9 g/dLLow14.0 - 18.0 g/dLHermann Area District Hospital Interpretation and review of laboratory resultsAbnormalHermann Area District HospitalCLINISYNFREEMAN CANCER INSTITUTES HealthcareUroVysion Fish and Urine Cyto ([facility])on 32-62-8099QOCGDC & UC Diagnosis InfoInvalid Interpretation [facility] CompanyComment on above:Result Comment: A:Urine,Bladder Wash:Bladder Wash Diagnosis [...] with cytology and cystoscopy results. * CPT: 13751, 68376. Microscopic Notes - Microscopic Notes - Abnormal cells 9p21 deletions: Abnormal cells aneploid events: Total cells analyzed: 69 Hematuria: Gross Description Site ID:A color Light Yellow fixative Alcohol Received 100 mls of clear light yellow fluid with thepatient's name and, Bladder Wash on the vial. Electronically signed by : on: 11/29/2024 06:34:10Performed By: #### [id number] #### [facility] [address] [place], [place] [address]Basxsbqnhd Visit Summaryon 81-07-0610Nxugwngwaj Visit Summary Ambulatory Visit Summary ALEX ANDERSON :1945 Visit Date:11/16/2024 Ambulatory Visit Instructions Your Diagnosis History of bladder cancer Urinary retention Your Care Team Attending Physician - ARLENE CASILLAS, Katia Macias Primary Care Physician - IDANIA CASILLAS, STANLEY [...] Eboni Anderson PA-C Where: [facility] [address] [place] [address]- You Need to Schedule the Following Appointments Follow Up with ARLENE CASILLAS, ADRIA Sterling When: Where: [facility] [address], [place] [address]- Medications What How Much When Instructions Unchanged [...] History of bladder c (more content not included)...[facility] 67-10-7713HgsokphuiNawfktcnn From: Dana Rivas To: EU - Recalls Samuels; Sent: 08/06/2024 15:16:19 EDT Show up: 01/24/2025 15:16:00 EDT Subject: cysto/fish/cytol Due Date/Time: 02/21/2025 15:16:00 EDT Reminder/Recall Patient is due in Mar 2025 for 6 month cysto/fish/cytol, bt ck Patient is due in October 2025 for 1 year cysto/FISH/cytol, bt ckNoTrinity Health System West CampusUroVysion Fish and Urine Cyto ([facility])on 36-19-3178FBSK Method of ExtractionBladder [facility] CampusComment on above: Performed By: #### [id number] #### [facility] [address] [place], [place] [address]HBQQ Number of Imiy8Qqdyyzq Interpretation [facility] CompanyComment on above:Performed By: #### [id number] #### [facility] [address] [place], [place] [address]OPLZ SpecimenBladder [facility] Comment on above:Performed By: #### [id number] #### [facility] [address] [place], [place] [address]IUAI Type of ServiceTechnical OnlyNormalHighsmith-Rainey Specialty Hospitaler [facility] HospitalComment on above:Performed By: #### [id number] #### [facility] [address] [place], [place] [address]Ettiwuq Office/Clinic Noteon 25-42-8327Jdmwuen Office/Clinic NoteUrology Office/Clinic Note Chief Complaint Cysto [...] With When Contact Information ARLENE CASILLAS, Katia Macias, URL [facility] [address] [place] [address]- Additional Instructions: 1 yr surveillance cysto/bt ck/FISH/cytol [...] mg oral tablet, extended (more content not included)...[facility] HospitalComment on above:Result Comment: Electronically Signed By: Katia SAMUELS MD\.br\Date and Time Signed: 11/16/24 14:52 EDT\.br\Electronically Co-Signed By: Citlalli Rushing\.br\Date and Time Co-Signed: 11/16/24 14:44 EDTAmbulatory Visit Summaryon 39-58-1112Uhmceajbqm Visit SummaryAmbulatory Visit Summary TARASALEX :1945 Visit Date:11/02/2024 Ambulatory Visit Instructions Your [...] 2:00 PM EDT With: ARLENE CASILLAS, Katia Macias Where: [facility] [address] [place] [address]- Medications What How Much When Instructions Unchanged [...] you for choosing us for your care. [facility] HospitalErythrocyte distribution width Auto (RBC) [Ratio]on 05-35-2955Uhcqcrnbsdw distribution width (RBC) [Ratio] Erythrocyte distribution width [Ratio] by Automated dvqesNkzj45.0-15.0[facility] HospitalEstimated glomerular filtration rate (GFR) non- Americanon 14-14-4466OKL/1.73 sq M.predicted among non-blacks MDRD (S/P/Bld) [Vol rate/Area]Estimated glomerular filtration rate (GFR) non- Low>=60 mL/min/1.73m [address] [place] [address] CBC WITH PLATELET NO DIFFERENTIALon 40-55-0208Iptslszoevu distribution width (RBC) [Ratio]18.7 %High 11.0 - 15.0 %[facility] HealthcareHematocrit (Bld) [Volume fraction]35.8 %Low42.0 - 54.0 %[facility] HealthcareHemoglobin (Bld) [Mass/Vol]10.7 g/dLLow14.0 - 18.0 g/dLHermann Area District HospitalInterpretation and review of laboratory resultsAbnormalCox MonettH (RBC) [Entitic mass]24 pgLow25.9 - 34.0 pgCox MonettHC (RBC) [Mass/Vol]29.9 g/dL29.9 - 35.2 g/dLCox MonettV (RBC) [Entitic vol] 80.4 fL80.0 - 94.0 fLHermann Area District HospitalPlatelet mean volume (Bld) [Entitic vol]9.6 fL9.5 - 13.5 fLNOMS HealthcareTBH EFW157CLFFSaint John's HospitalTB RBC4.45LowNOSaint John's HospitalTB WBC6.7NOVT HealthcareCLINISYNCNOMS HealthcareHematocrit Auto (Bld) [Volume fraction]on 84-83-1374Dcyqiocpug (Bld) [Volume fraction]Hematocrit [Volume Fraction] of Blood by Automated bdyyeXie39.0-54.0[facility] HospitalHemoglobin [Mass/volume] in Bloodon 01-91-3198Kbwtggvhim (Bld) [Mass/Vol]Hemoglobin [Mass/volume] in GdullTgr58.0-18.0[facility] HospitalIron binding capacity [Mass/volume] in Serum or Plasmaon 43-38-2595Uaho binding capacity [Mass/Vol]Iron binding capacity [Mass/volume] in Serum or Agejxa111.0-450.0[facility] HospitalIron saturation [Mass Fraction] in Serum or Plasmaon 94-60-8920Jpsl saturation [Mass fraction] Iron saturation [Mass Fraction] in Serum or PlasmaSalem City HospitalLaboratory - Chemistry and Chemistry - challengeon 68-61-7274Szvhmkw [Mass/Vol]3.3 g/dLLow3.4-5.0[facility] HospitalCalcium [Mass/Vol] 8.7 mg/dL8.5-10.1FMedina HospitalChloride [Moles/Vol]104 mmol/L 98-107[facility] HospitalCO2 [Moles/Vol]29.3 mmol/L21.0-32.0 [facility] HospitalCobalamin (Vitamin B12) [Mass/Vol]593 pg/mL 232-1245[facility] HospitalComment on above:Performed at: - [facility] [address] [id number] Director: Morgan Carpenter PhD, Phone: [phone] [Mass/Vol]2.17 mg/dLHigh0.70-1.30 [facility] HospitalGFR/1.73 sq M.predicted MDRD (S/P/Bld) [Vol rate/Area]36 mL/min/{1.73_m2}Low>=60 mL/min/1.73m 2FMedina HospitalGlucose [Mass/Vol]95 mg/uY77-095PxwnejupwSalem City HospitalIron [Mass/Vol]34.0 ug/dLLow65.0-175.0[facility] HospitalMagnesium [Mass/Vol]2.1 mg/dL1.8-2.4FMedina HospitalPotassium [Moles/Vol] 3.4 mmol/LLow3.5-5.1FToledo Hospitalodium [Moles/Vol]144 mmol/S469-132RnfxjjkpxSalem City HospitalUrea nitrogen [Mass/Vol]35.0 mg/dL High7.0-18.0[facility] HospitalUrea nitrogen/Creatinine [Mass ratio]16.1 mg/mgSalem City HospitalLaboratory - Urinalysison 16-01-8350Oqxrlon (U) [Mass/Vol]54.5 mg/dLHigh<=11.9[facility] HospitalLeukocytes [#/volume] corrected for nucleated erythrocytes in Blood by Automated counon 48-28-8421VZF corrected for nucl RBC Auto (Bld) [#/Vol] Leukocytes [#/volume] corrected for nucleated erythrocytes in Blood by Automated coun4.0-11.0[facility] HospitalH Auto (RBC) [Entitic mass]on 48-82-9727YEF (RBC) [Entitic mass]MCH [Entitic mass] by Automated countLow 25.9-34.0[facility] HospitalMCHC Auto (RBC) [Mass/Vol]on 45-93-1304HBBW (RBC) [Mass/Vol]MCHC [Mass/volume] by Automated count29.9-35.2 [facility] HospitalMCV Auto (RBC) [Entitic vol]on 80-05-0531BJO (RBC) [Entitic vol]MCV [Entitic volume] by Automated count80.0-94.0[facility] HospitalNo Panel Informationon 17-76-3842Dkwjf Random Creatinine 77.97 mg/dL20.00-300.00[facility] HospitalFolate39.70 ng/mL 8.60-58.90[facility] HospitalPhosphorus Level3.4 mg/dL2.6-4.7 [facility] HospitalPlatelet mean volume Auto (Bld) [Entitic vol]on 97-51-8193Rtzvwzeh mean volume (Bld) [Entitic vol]Platelet mean volume [Entitic volume] in Blood by Automated count9.5-13.5FMedina Hospital Platelets Auto (Bld) [#/Vol]on 62-57-2445Frpsqgfuo (Bld) [#/Vol]Platelets [#/volume] in Blood by Automated vfuwj491-996UusilsjqzSalem City Hospital RBC Auto (Bld) [#/Vol]on 39-98-7351GAY (Bld) [#/Vol]Erythrocytes [#/volume] in Blood by Automated countLow4.70-6.10[facility] - Youngstownerum or plasma anion gap determinationon 47-36-6290Djgli gap [Moles/Vol]Serum or plasma anion gap determinationSalem City HospitalUrine protein/creatinine ratioon 35-59-2826Qxxjrfx/Creatinine (U) [Ratio]Urine protein/creatinine ratio [facility] HospitalCreatinine (Bld) [Mass/Vol]Ordered By: Margarito Valentine on 21-23-7389Nkqkjlefmb [Mass/Vol]Whole blood creatinine measurement High0.6-1.3FMedina HospitalComment on above:ER/ESD physician is notified/shown all ISTAT results.Critical values may be confirmed by laboratory testing ifdeemed necessary by ER attending doctor.INR in Platelet poor plasma by Coagulation assayOrdered By: Margarito Valentine on 84-94-9007ICE Coag (PPP) [Relative time]INR in Platelet poor plasma by Coagulation assaySalem City HospitalComment on above:INR Therapeutic Range A) Pre- and [...] 4.5ISTAT XRay CREon 10-11-2024 Creatinine [Mass/Vol]2.1 mg/dLHigh0.6-1.3[facility] Physician GroupComment on above:Result Comment: ER/ESD physician is notified/shown all ISTAT results. Critical values may be confirmed by laboratory testing if deemed necessary by ER attending doctor.Performed By: #### BLAKE, CUU #### [place] [address] USAISTAT GFR31.235NormalThTeton Valley Hospital Physician GroupComment on above:Result Comment: PERFORMED BY: [place] [address] PATHOLOGIST EMERGENCY WORKER ED CRUZ M.D.Performed By: #### JESUSPLUS, CUU #### [place] [address] USANo Panel InformationOrdered By: Margarito Valentine on 03-59-3246Bubfpln Estimated GFR (eGFR)31.235[facility] Partial Thromboplastin Timeon 43-84-8051oTKX Coag (Bld) [Time]36.8 sHigh 25.1-36.5The [facility] Hospital Physician GroupComment on above:Result Comment: A hematocrit value greater than 55% may lead to inaccurate results in coagulation testing. Patients having hematocrit values >55% require a special collection tube for coagulation studies. Please contact the laboratory at [phone] for redraw instructions. PERFORMED BY: [place] [address] PATHOLOGIST EMERGENCY WORKER ED CRUZ M.D.Performed By: #### PTT, PT #### [place] [id number] USAProthrombin Time INRon 72-41-3915DGV Coag (PPP) [Relative time]1.6 {INR}NormalThe C[facility] Women'S Hospital Physician GroupComment on above:Result Comment: INR Therapeutic [...] - 4.5Performed By: #### PTT, PT #### [facility] [address] [place] [address] USAPT Coag (PPP) [Time]17.9 sHigh9.0-12.9The [facility] Hospital Physician GroupComment on above:Result Comment: A hematocrit value greater than 55% may lead to inaccurate results in coagulation testing. Patients having hematocrit values >55% require a special collection tube for coagulation studies. Please contact the laboratory at [phone] for redraw instructions.Performed By: #### PTT, PT #### [facility] [address] [place] [address] USAProthrombin time (PT)Ordered By: Margarito Valentine on 87-83-4944QP Coag (PPP) [Time]Prothrombin time (PT)High9.0-12.9[facility] HospitalComment on above:A hematocrit value greater than 55% may lead to inaccurate results in coagulation testing. Patientshaving hematocrit values >55% require a special collection tube for coagulation studies. Please c ontact the laboratory at [phone] for redraw instructions.aPTT in Platelet poor plasma by Coagulation assayOrdered By: Margarito Valentine on 21-78-6259iOBI Coag (PPP) [Time]Activated partial thromboplastin time (aPTT) in platelet poor plasma by coagulation aHi25.1-36.5FMedina HospitalComment on above:A hematocrit value greater than 55% may lead to inaccurate results in coagulation testing. Patientshaving hematocrit values >55% require a special collection tube for coagulation studies. Please contact the laboratory at [phone] for redraw instructions.Cult,Urineon 36-72-6694Sizt,UrineSpecimen Description .CLEAN CATCH URINE Special Requests Site: Urine Culture ENTEROBACTER CLOACAE COMPLEX >100,000 CFU/ML Report Status FINAL 10/06/2024 SUSCEPTIBILITY Organism ENCLCX Method RITESH Gentamicin <=1 SUSCEPTIBLE Levofloxacin 1 INTERMEDIATE Nitrofurantoin 64 INTERMEDIATE Piperacillin/Tazobactam 64 INTERMEDIATE Tobramycin <=1 SUSCEPTIBLE Trimethoprim/Sulfa <=20 SUSCEPTIBLE SUSCEPTIBILITY Organism ENCLCX Method ROGERS CARRENO Ceftriaxone SUSCEPTIBLESusceptibleMerChildren's Hospital of ColumbusComment on above: Performed By: #### OBS #### [facility] [address] [facility] [place] [address] Positive Printer Operator: Milo Engle DOMHPKirsten CULT,URINEon 06-01-5205Wgxrtqirujaoyb and review of laboratory resultsAbnormalNOVT HealthcareMHPT CULT,URINESpecimen Description .CLEAN CATCH URINENOVT HealthcareMHPT CULT,URINESpecial Requests Site: UrineNOMS HealthcareMHPT CULT,URINECulture ENTEROBACTER CLOACAE COMPLEX >100,000 CFU/MLAbnormalNOVT HealthcareMHPT CULT,URINEReport Status FINAL 10/06/2024NOMS HealthcareMHPT CULT,URINEMethod MICNOMS HealthcareMHPT CULT,URINE Gentamicin <=1 SUSCEPTIBLESusceptibleNOVT HealthcarePT CULT,URINELevofloxacin 1 INTERMEDIATEIntermediateNOMS HealthcareMHPT CULT,URINENitrofurantoin 64 INTERMEDIATEIntermediateNOMS HealthcareMHPT CULT,URINEPiperacillin/Tazobactam 64 INTERMEDIATEIntermediateNOMS HealthcarePT CULT,URINETobramycin <=1 SUSCEPTIBLESusceptibleNOMS HealthcareMHPT CULT,URINETrimethoprim/Sulfa <=20 SUSCEPTIBLESusceptibleNOMS HealthcareMHPT CULT,URINEMethod ROGERS CARRENO SusceptibleNOVT HealthcarePT CULT,URINECeftriaxone SUSCEPTIBLESusceptibleNOMS HealthcareOriginal Ordering Provider: WAQAR ADORNOISYNCLAKEVIEW HOSPITAL HealthcareNo Panel Informationon 90-10-2038LLNW CULT,URINE SUSCEPTIBILITY SusceptibleNOVT HealthcarePT CULT,URINEOrganism ENCLCXSusceptibleLAKEVIEW HOSPITAL HealthcareBasic Metab w/rfx MGon 79-40-6644Wwmtt gap [Moles/Vol]9 mmol/LNormal 9-16[facility] Medical CenterComment on above:Performed By: #### OBS #### [facility] [address] [facility] [place], [place] [id number] Positive Printer Operator: Milo Engle, DOCalcium [Mass/Vol]8.6 mg/dLNormal8.6-10.4 [facility] CenterComment on above:Performed By: #### OBS #### [facility] [address] [facility] [place] [address] Positive Printer Operator: Milo Engle DOChloride [Moles/Vol]105 mmol/QMongcc26-886 [facility] CenterComment on above:Performed By: #### OBS #### [facility] [facility] [place] [address] Positive Printer Operator: Milo Engle DOCO2 [Moles/Vol]27 mmol/EWklsgs10-21YsmebMain Campus Medical CenterComment on above:Performed By: #### OBS #### [facility] [address] [place] [address]. [place] [address] Positive Printer Operator: Milo Engle DOCreatinine [Mass/Vol]1.9 mg/dLHigh0.7-1.2 [facility] CenterComharper university hospital on above:Performed By: #### OBS #### [facility] [address] [place] [address]. [place] [address] Positive Printer Operator: Milo Engle DOGFR/1.73 sq M.predicted among non-blacks MDRD (S/P/Bld) [Vol rate/Area]35 mL/min/{1.73_m2}Low>60[facility] Comment on above:Result Comment: These [...] renal tubular secretion.Performed By: #### OBS #### [facility] [address] [place] [address]. [place] [address] Positive Printer Operator: Milo Engle DOGlucose [Mass/Vol]97 mg/vNSkcovh29-90LjlnwKettering Health Washington TownshipComment on above:Performed By: #### OBS #### [facility] [address] [facility] [place] [address] Positive Printer Operator: Milo Engle DOPotassium [Moles/Vol]3.3 mmol/LLow3.7-5.3 [facility] CenterComment on above:Performed By: #### OBS #### [facility] [address] [facility] [place] [address] Positive Printer Operator: Milo Engle DOSodium [Moles/Vol]141 mmol/KVbhnqg215-436 [facility] CenterComharper university hospital on above:Performed By: #### OBS #### [facility] [facility] [place] [address] Positive Printer Operator: Milo Engle DOUrea nitrogen [Mass/Vol]24 mg/dLHigh8-23[facility]uff[facility] Hospitalcy [facility] Medical CenterComment on above:Performed By: #### OBS #### [facility] [place] [address] Positive Printer Operator: Milo Engle DOBasic Metabolic Panel w/ Reflex to MGon 89-53-1181Wsaic gap [Moles/Vol]9 mmol/L9 - 16 mmol/LBon [facility] Calcium [Mass/Vol]8.6 mg/dL8.6 - 10.4 mg/dLBon [facility] HealthChloride [Moles/Vol]105 mmol/L98 - 107 mmol/LBon [facility] HospitalCO2 [Moles/Vol]27 mmol/L20 - 31 mmol/LBon [facility] HospitalCreatinine [Mass/Vol]1.9 mg/dLHigh 0.7 - 1.2 mg/dLBon [facility]field HospitalEst, Glom Filt Zjoy29Mdw- PINFBon Mansfield HospitalComment on above: These results [...] Mansfield HospitalInterpretation and review of laboratory resultsAbnormalBon Secours Memorial Regional Medical CenterPotassium [Moles/Vol]3.3 mmol/LLow3.7 - 5.3 mmol/LBon [facility] HospitalSodium [Moles/Vol]141 mmol/L136 - 145 mmol/LBon [facility]field HospitalUrea nitrogen [Mass/Vol]24 mg/dLHigh8 - 23 mg/dLBon [facility] CenterCBC with Auto Differentialon 78-09-6164Ktlxtmpqy (Bld) [#/Vol]0.05 10*3/uL [facility] Medical CenterBasophils/100 WBC (Bld)1 %0 - 2 %[facility] Medical CenterEosinophils (Bld) [#/Vol]0.2 10*3/uLBon Secours [facility] Center Eosinophils/100 WBC (Bld)4 %0 - 4 %[facility] Medical CenterErythrocyte distribution width (RBC) [Ratio]21.2 %High11.5 - 14.9 %[facility] Hematocrit (Bld) [Volume fraction]35.3 %Low41 - 53 %[facility] Hemoglobin (Bld) [Mass/Vol]11.5 g/dLLow13.5 - 17.5 g/dLBon [facility] Immature granulocytes (Bld) [#/Vol]0 10*3/uLBon Secours Memorial Regional Medical CenterImmature granulocytes/100 WBC (Bld)0 %0Bon [facility]field HospitalInterpretation and review of laboratory resultsAbnormalBon Secours Memorial Regional Medical CenterLymphocytes/100 WBC (Bld)30 %24 - 44 %[facility] Medical CenterLymphocytes/100 WBC (Bld)1.53 %[facility] HospitalH (RBC) [Entitic mass]24.8 pgLow26 - 34 pgBon [facility] MCHC (RBC) [Mass/Vol]32.7 g/dL31 - 37 g/dLBon Secours Mercy HealthMCV (RBC) [Entitic vol]75.8 fLLow80 - 100 fLBon Secours Memorial Regional Medical CenterMonocytes/100 WBC (Bld)7 %1 - 7 %Bon [facility] HospitalMonocytes/100 WBC (Bld)0.36 %Bon [facility]field HospitalMorphology Ian (Bld) [Interp]ANISOCYTOSIS PRESENTInova Loudoun Hospital HealthMorphology Ian (Bld) [Interp]HYPOCHROMIA PRESENTBon [facility] Center Morphology Ian (Bld) [Interp]FEW ELLIPTOCYTESBon Secours [facility] Center Neutrophils/100 WBC (Bld)58 %36 - 66 %[facility] Medical CenterPlatelet mean volume (Bld) [Entitic vol]8.1 fL6.0 - 12.0 fLBon Secours Memorial Regional Medical CenterPlatelets (Bld) [#/Vol]173 10*3/uLBon [facility]field HospitalRBC (Bld) [#/Vol]4.65 10*6/uL4.5 - 5.9 m/uLBon Secours Memorial Regional Medical CenterSegmented neutrophils/100 WBC (Bld)2.96 %Bon [facility] HospitalWBC other (Bld) [#/Vol]5.1Bon [facility] CenterCBC with Diffon 19-50-2834Ftq. Basophil0.05 k/uLNormal 0.0-0.2[facility] Medical CenterComment on above:Performed By: #### OBS #### [facility] [address] [place] [address] Positive Printer Operator: Milo Engle DOAbs.Imm.Granulocyte0.00 k/uLNormal0.00-0.30 [facility] CenterComharper university hospital on above:Performed By: #### OBS #### [facility] [address] [place] [address] Positive Printer Operator: Milo Engle DOAbs.Neutrophil (Seg)2.96 k/uLNormal1.3-9.1 [facility] CenterComment on above:Performed By: #### OBS #### [facility] [address] [place] [address] Positive Printer Operator: Milo Engle DOBasophils/100 WBC (Bld)1 %Normal0-2[facility] Medical CenterComment on above:Performed By: #### OBS #### [facility] [place] [address] Positive Printer Operator: Milo Engle DOEosinophils (Bld) [#/Vol]0.20 10*3/uLNormal 0.0-0.4[facility] CenterComharper university hospital on above:Performed By: #### OBS #### [facility] [address] [place] [address] Positive Printer Operator: Milo Engle DOEosinophils/100 WBC (Bld)4 %Normal0-4[facility] CenterComharper university hospital on above:Performed By: #### OBS #### [facility] [address] [place] [address] Positive Printer Operator: Milo Engle DOImmature granulocytes/100 WBC (Bld)0 %Normal0 [facility] CenterComharper university hospital on above:Performed By: #### OBS #### [facility] [address] [place] [phone] Positive Printer Operator: Milo Engle DOLymphocytes (Bld) [#/Vol]1.53 10*3/uLNormal 1.0-4.8[facility] Hospitalcy [facility] Medical CenterComharper university hospital on above:Performed By: #### OBS #### [facility] [address] [place] [address] Positive Printer Operator: Milo Engle DOLymphocytes/100 WBC (Bld)30 %Tffbbs79-57RonpuMain Campus Medical CenterComment on above:Performed By: #### OBS #### [facility] [address] [place] [address] Positive Printer Operator: Milo Engle DOMonocytes (Bld) [#/Vol]0.36 10*3/uLNormal 0.1-1.3[facility] Medical CenterComment on above:Performed By: #### OBS #### [facility] [place] [address] Positive Printer Operator: Milo Engle DOMonocytes/100 WBC (Bld)7 %Normal1-7[facility] Medical CenterComment on above:Performed By: #### OBS #### [facility] [address] [place] [address] Positive Printer Operator: Milo Engle DOMorphology Ian (Bld) [Interp]ANISOCYTOSIS PRESENTNormalMain Campus Medical CenterComment on above:Result Comment: HYPOCHROMIA PRESENT FEW ELLIPTOCYTESPerformed By: #### OBS #### [facility] [address] [place] [address] Positive Printer Operator: Milo Engle DONeutrophil (Seg)58 %Zoldnr60-53EbqyhMain Campus Medical CenterComment on above:Performed By: #### OBS #### [facility] [address] [place] [address] Positive Printer Operator: Milo Engle DOErythrocyte distribution width (RBC) [Ratio] 21.2 %High11.5-14.9[facility] Medical CenterComharper university hospital on above:Performed By: #### OBS #### [facility] [address] [place] [address] Positive Printer Operator: Milo Engle DOHematocrit (Bld) [Volume fraction]35.3 %Low 41-53[facility] CenterComment on above:Performed By: #### OBS #### [facility] [address] [facility] [place] [address] Positive Printer Operator: Milo Engle DOHemoglobin (Bld) [Mass/Vol]11.5 g/dLLow 13.5-17.5[facility] CenterComment on above:Performed By: #### OBS #### [facility] [place] [address] Positive Printer Operator: Milo Engle DOMCH (RBC) [Entitic mass]24.8 qcPtr86-96GyntgMain Campus Medical CenterComment on above:Performed By: #### OBS #### [facility] [address] [place] [address] Positive Printer Operator: Milo Engle DOMCHC (RBC) [Mass/Vol]32.7 g/qQIzlfrw86-05 [facility] CenterComment on above:Performed By: #### OBS #### [facility] [address] [place] [address] Positive Printer Operator: Milo Engle DOMCV (RBC) [Entitic vol]75.8 aZKlr65-969PvgsiMain Campus Medical CenterComharper university hospital on above:Performed By: #### OBS #### [address] [address] Positive Printer Operator: Milo Engle DOPlatelet mean volume (Bld) [Entitic vol]8.1 fLNormal6.0-12.0[facility] CenterComharper university hospital on above:Performed By: #### OBS #### [facility] [address] [place] [address] Positive Printer Operator: Milo Engle DOPlatelets (Bld) [#/Vol]173 10*3/uLNormal 150-450[facility] Medical CenterComment on above:Performed By: #### OBS #### [facility] [address] [facility] [place] [address] Positive Printer Operator: Milo Engle DORBC (Bld) [#/Vol]4.65 10*6/uLNormal4.5-5.9 [facility] CenterComment on above:Performed By: #### OBS #### [facility] [address] [facility] [place] [address] Positive Printer Operator: Milo Engle DOWBC (Bld) [#/Vol]5.1 10*3/uLNormal3.5-11.0 [facility] CenterComment on above:Performed By: #### OBS #### [facility] [address] [facility] [place] [address] Positive Printer Operator: Milo Engle DOEKG 12 LeadOrdered By: All Cornejo on 56-85-1079Wdgsnu Ewae42HTQZea Shibumi Work Phone: [phone] Eraf32octtkhnRzz Shibumi Work Phone: P-R Agtmrbrh663 [employer] [place] Work Phone: Q-T Krrcxjlq614 [employer] Work Phone: QRS Ujoozhkf156 [email or web address] Work Phone: QTc Calculation (Bazett)471 msBon Shibumi Work Phone: R Elizabethport-16degreesBon Shibumi Work Phone: T Waz[email or web address] Work Phone: Ventricular Mmlz54WTECnd SecKustom Codes Work Phone: Bon Shibumi Work Phone: EKG 12 Leadon 55-17-0085Rmydh rhythm with 1st degree A-V block Incomplete left bundle branch block ST & T wave abnormality, consider anterior ischemia Abnormal ECG When compared with ECG of 04-Oct-2024 15:45, (unconfirmed) No significant change was foundHOLY [facility] All Mcintosh DO - 10/05/2024 Sinus rhythm with 1st degree A-V block Incomplete left bundle branch block ST & T wave abnormality, consider anterior ischemia Abnormal ECG When compared with ECG of 04-Oct-2024 15:45, (unconfirmed) No significant change was found [facility] HealthIron Binding Cap.on 10-05-2024% Fe Pvpapytjfb04 %Normal 20-55[facility] Medical CenterComment on above:Performed By: #### OBS #### [facility] [address] [place] [address] Positive Printer Operator: Milo Engle DOIron [Mass/Vol]103 ug/wVTqbhxo34-861GoobjMain Campus Medical CenterComment on above:Performed By: #### OBS #### [facility] [address] [facility] [place] [address] Positive Printer Operator: Milo Engle DOTotal Fe Binding Yja971 ug/nKNczgpy521-537 [facility] CenterComment on above:Performed By: #### OBS #### [facility] [address] [facility] [place] [address] Positive Printer Operator: Milo Engle DOUnbound Fe Bind Fdo982 ug/nELopjjb357-454 [facility] CenterComharper university hospital on above:Performed By: #### OBS #### [facility] [address] [facility] [place] [address] Positive Printer Operator: Milo Engle DOIron and TIBCon 73-13-9867Duro [Mass/Vol]103 ug/dL61 - 157 ug/dLBon Secours Mercy HealthIron binding capacity [Mass/Vol]250 ug/dL250 - 450 ug/dLBon Secours Mercy HealthIron saturation [Mass fraction]41 % 20 - 55 %[facility]cy IlxlcbPKOD251 ug/dL112 - 347 ug/dLBon [facility] Surgical CenterMagnesiumon 68-52-3729Lwhsddnnz [Mass/Vol]2.3 mg/dL1.6 - 2.4 mg/dLBon [facility] Surgical CenterMagnesium [Mass/Vol]2.3 mg/dLNormal1.6-2.4[facility] CenterComharper university hospital on above: Performed By: #### OBS #### [facility] [address] [facility] [place] [address] Positive Printer Operator: Milo Engle DOPTon 26-32-4170IUG Coag (PPP) [Relative time] 2.0 {INR}NormalMain Campus Medical CenterComharper university hospital on above:Result Comment: Therapeutic Range: Moderate Anticoagulant Intensity: INR = 2.0-3.0 High Anticoagulant Intensity: INR = 2.5-3.5Performed By: #### OBS #### [facility] [address] [place] [address] Positive Printer Operator: Milo Engle DOPT Coag (PPP) [Time]24.9 sHigh11.8-14.6Mgenesis hospitaly [facility] CenterComharper university hospital on above:Performed By: #### OBS #### [facility] [address] [place] [address]. [place] [address] Positive Printer Operator: Milo Engle DOProtime-INRon 68-34-1481ISS Coag (PPP) [Relative time]2 {INR}Bon [facility] on above: Therapeutic Range: Moderate Anticoagulant Intensity: INR = 2.0-3.0 High Anticoagulant Intensity: INR = 2.5-3.5 Interpretation and review of laboratory resultsAbnormalBon [facility] PT Coag (PPP) [Time]24.9 sHighBon [facility] Basic Metab w/rfx MGon 10-46-9581Behms gap [Moles/Vol]8 mmol/LLow9-16[facility] Medical CenterComment on above:Performed By: #### MAGY JAMES, PT #### [facility] [address] [facility] [place] [address] Positive Printer Operator: Milo Engle DOCalcium [Mass/Vol]8.7 mg/dLNormal8.6-10.4 [facility] CenterComment on above:Performed By: #### MAGY JAMES, PT #### [facility] [address] [facility] [place] [address] Positive Printer Operator: Milo Engle DOChloride [Moles/Vol]109 mmol/YWogc49-902UgbfpMain Campus Medical CenterComment on above:Performed By: #### MAGY JAMES, PT #### [facility] [place] [address] Positive Printer Operator: Milo Engle DOCO2 [Moles/Vol]27 mmol/OVpjyul61-00UsghcMain Campus Medical CenterComment on above:Performed By: #### MAGY JAMES, PT #### [facility] [facility] [place] [address] Positive Printer Operator: Milo Engle DOCreatinine [Mass/Vol]1.8 mg/dLHigh0.7-1.2 [facility] CenterComment on above:Performed By: #### MAGY JAMES, PT #### [facility] [address] [place] [address]. [place] [address] Positive Printer Operator: Milo Engle, DOGFR/1.73 sq M.predicted among non-blacks MDRD (S/P/Bld) [Vol rate/Area]38 mL/min/{1.73_m2}Low>60[facility] Comment on above:Result Comment: These [...] that affects renal tubular secretion.Performed By: #### MAGY JAMES, PT #### [facility] [place] [address] Positive Printer Operator: Milo Engle DOGlucose [Mass/Vol]103 mg/kGNrpc85-13BvwlaKettering Health Washington TownshipComment on above:Performed By: #### MAGY JAMES, PT #### [facility] [address] [place] [address] Positive Printer Operator: Milo Engle DOPotassium [Moles/Vol]3.8 mmol/LNormal3.7-5.3 [facility] on above:Performed By: #### MAGY JAMES, PT #### [facility] [address] [place] [address] Positive Printer Operator: Milo Engle DOSodium [Moles/Vol]144 mmol/DHeiiro443-795 [facility] on above:Performed By: #### MAGY JAMES, PT #### [facility] [address] [place] [phone] Positive Printer Operator: Milo Engle DOUrea nitrogen [Mass/Vol]22 mg/dLNormal8-23 [facility] on above:Performed By: #### MAGY JAMES, PT #### [facility] [address] [place] [address] Positive Printer Operator: Milo Engle DOBasic Metabolic Panel w/ Reflex to MGon 16-99-3840Boxqt gap [Moles/Vol]8 mmol/LLow9 - 16 mmol/LBon [facility] Calcium [Mass/Vol]8.7 mg/dL8.6 - 10.4 mg/dLBon [facility]ours [facility] HealthChloride [Moles/Vol]109 mmol/LHigh98 - 107 mmol/LBon [facility] HospitalCO2 [Moles/Vol] 27 mmol/L20 - 31 mmol/LBon [facility] HospitalCreatinine [Mass/Vol]1.8 mg/dL High0.7 - 1.2 mg/dLBon [facility] Foundation HospitalThismoment St. Mary'S Medical CenterEst, Glom Filt Pogq30Hdr- PINFBon Mansfield HospitalComment on above: These results [...] that affects renal tubular secretion. Glucose [Mass/Vol]103 mg/cQHsir73 - 99 mg/dLBon [facility] Interpretation and review of laboratory resultsAbnormalBon [facility] Potassium [Moles/Vol]3.8 mmol/L3.7 - 5.3 mmol/LBon [facility] HospitalSodium [Moles/Vol]144 mmol/L136 - 145 mmol/LBon [facility] HospitalUrea nitrogen [Mass/Vol]22 mg/dL8 - 23 mg/dLBon [facility] Blood Occult Stool Screen #1on 32-45-6936Fzyf, Stool #[id number] [facility] MobileIgniterHemoglobin.gastrointestinal spec 1 Ql (Stl)NegativeNEGATIVEBon [facility]ty HospitalThermalTherapeuticSystems [facility] HospitalTime, Stool #[id number] [facility] CenterCBC with Auto Differentialon 78-34-3792Wpkmkycmm (Bld) [#/Vol]0.03 10*3/uLBon SecThermalTherapeuticSystems [facility] MobileIgniterBasophils/100 WBC (Bld)1 %0 - 2 %[facility] HospitalThermalTherapeuticSystems [facility] MobileIgniter Eosinophils (Bld) [#/Vol]0.29 10*3/uLBon [facility]ours [facility]tering Health SpringfieldThismoment St. Mary'S Medical CenterEosinophils/100 WBC (Bld)4 %0 - 4 %[facility] HospitalThermalTherapeuticSystems [facility] SpringfieldFanBoomErythrocyte distribution width (RBC) [Ratio]20 %High11.5 - 14.9 %[facility] Hospitalours Mercy HealthHematocrit (Bld) [Volume fraction]38.7 %Low41.0 - 53.0 %[facility] Springfieldy HealthHemoglobin (Bld) [Mass/Vol]11.2 g/dLLow13.5 - 17.5 g/dLBon Secours Kettering Health Springfieldy HealthImmature granulocytes (Bld) [#/Vol][facility] HealthImmature granulocytes/100 WBC (Bld)0 %0[facility] Springfieldy HealthInterpretation and review of laboratory results AbnormalBon Secours [facility]tering Health Springfieldy HealthLymphocytes/100 WBC (Bld)17 %Low24 - 44 %[facility] HealthLymphocytes/100 WBC (Bld)1.13 %[facility] HospitalH (RBC) [Entitic mass]24 pgLow26.0 - 34.0 pgBon SecMagruder Memorial HospitalHC (RBC) [Mass/Vol]28.9 g/dLLow31.0 - 37.0 g/dLBon SecMary Rutan HospitalMCV (RBC) [Entitic vol]83 fL80.0 - 100.0 fLBon Secours [facility] HealthMonocytes/100 WBC (Bld)15 %High 3 - 12 %[facility] HealthMonocytes/100 WBC (Bld)0.98 %[facility] HealthNeutrophils/100 WBC (Bld)63 %36 - 66 %[facility] Medical CenterNucleated RBC/100 WBC (Bld) [Ratio]0 %0 per 100 WBCBon Secours [facility]y HealthPlatelet mean volume (Bld) [Entitic vol]10.2 fL8.0 - 13.5 fLBon Secours [facility]y HealthPlatelets (Bld) [#/Vol]195 10*3/uLBon Secours [facility] HealthRBC (Bld) [#/Vol]4.66 10*6/uL 4.21 - 5.77 m/uLBon SecMary Rutan HospitalSegmented neutrophils/100 WBC (Bld)4.2 % Bon SecMary Rutan HospitalWBC other (Bld) [#/Vol]6.7[facility] HospitalBon [facility] HealthCBC with Diffon [id number]. Basophil0.03 k/uLNormal 0.00-0.20[facility] CenterComharper [facility] hospital on above:Performed By: #### MAGY JAMES, PT #### [facility] [address] [place] [phone] Positive Printer Operator: Milo Engle DOAbs.Imm.Granulocyte<0.37Vnhajz2.00-0.30MerChildren's Hospital of ColumbusComharper university hospital on above:Performed By: #### MAGY JAMES, PT #### [facility] [address] [place] [phone] Positive Printer Operator: Milo Engle DOAbs.Neutrophil (Seg)4.20 k/uLNormal1.50-8.10 [facility] CenterComhar[facility] on above:Performed By: #### MAGY JAMES, PT #### [facility] [address] [place] [phone] Positive Printer Operator: Milo Engle DOBasophils/100 WBC (Bld)1 %Normal0-2[facility] Medical CenterComment on above:Performed By: #### MAGY JAMES, PT #### [facility] [address] [place] [phone] Positive Printer Operator: Milo Engle DOEosinophils (Bld) [#/Vol]0.29 10*3/uLNormal 0.00-0.44[facility] CenterComhar[facility] hospital on above:Performed By: #### MAGY JAMES, PT #### [facility] [address] [place] [phone] Positive Printer Operator: Milo Engle DOEosinophils/100 WBC (Bld)4 %Normal0-4MerChildren's Hospital of ColumbusComharper university hospital on above:Performed By: #### MAGY JAMES, PT #### [facility] [address] [place] [phone] Positive Printer Operator: Milo Engle DOErythrocyte distribution width (RBC) [Ratio] 20.0 %High11.5-14.9[facility] on above:Performed By: #### MAGY JAMES, PT #### [facility] [place] [address] Positive Printer Operator: Milo Engle DOHematocrit (Bld) [Volume fraction]38.7 %Low 41.0-53.0[facility] on above:Performed By: #### MAGY JAMES, PT #### [facility] [address] [place] [phone] Positive Printer Operator: Milo Engle DOHemoglobin (Bld) [Mass/Vol]11.2 g/dLLow 13.5-17.5[facility] on above:Performed By: #### MAGY JAMES, PT #### [facility] [address] [place] [phone] Positive Printer Operator: Milo Engle DOImmature granulocytes/100 WBC (Bld)0 %Normal0 [facility] on above:Performed By: #### MAGY JAMES, PT #### [facility] [address] [place] [phone] Positive Printer Operator: Milo Enlge DOLymphocytes (Bld) [#/Vol]1.13 10*3/uLNormal 1.10-3.70[facility] CenterComharper [facility] hospital on above:Performed By: #### MAGY JAMES, PT #### [facility] [address] [place] [phone] Positive Printer Operator: Milo Engle DOLymphocytes/100 WBC (Bld)17 %Udw05-55EtydiKettering Memorial Hospital on above:Performed By: #### MAGY JAMES, PT #### [facility] [address] [facility] [place] [address] Positive Printer Operator: Milo Engle DOMCH (RBC) [Entitic mass]24.0 pgLow26.0-34.0 [facility] CenterComhar[facility] hospital on above:Performed By: #### MAGY JAMES, PT #### [facility] [place] [address] Positive Printer Operator: Milo Engle DOMCHC (RBC) [Mass/Vol]28.9 g/dLLow31.0-37.0 [facility] on above:Performed By: #### MAGY JAMES, PT #### [facility] [place] [address] Positive Printer Operator: Milo Engle DOMCV (RBC) [Entitic vol]83.0 fLNormal 80.0-100.0[facility] CenterComharper [facility] hospital on above:Performed By: #### MAGY JAMES, PT #### [facility] [address] [place] [phone] Positive Printer Operator: Milo Engle DOMonocytes (Bld) [#/Vol]0.98 10*3/uLNormal 0.10-1.20[facility] on above:Performed By: #### MAGY JAMES, PT #### [facility] [address] [place] [phone] Positive Printer Operator: Milo Engle DOMonocytes/100 WBC (Bld)15 %High3-12[facility] CenterComharper [facility] hospital on above:Performed By: #### MAGY JAMES, PT #### [facility] [place] [address] Positive Printer Operator: Milo Engle DONeutrophil (Seg)63 %Hhoomz53-28UftdwKettering Memorial Hospital on above:Performed By: #### ERIKA, MAGY, PT #### [facility] [address] [facility] [place] [facility] [place] [address] Positive Printer Operator: Milo Engle DONRBC Automated0.0 per 100 HJCKlmlnm2JebsaKettering Memorial Hospital on above:Performed By: #### ERIKA, MAGY, PT #### [facility] [address] [facility] [place] [facility] [place] [address] Positive Printer Operator: Milo Engle DOPlatelet mean volume (Bld) [Entitic vol]10.2 fLNormal8.0-13.5[facility] on above:Performed By: #### MAGY JAMES, PT #### [facility] [address] [facility] [place] [facility] [place] [address] Positive Printer Operator: Milo Engle DOPlatelets (Bld) [#/Vol]195 10*3/uLNormal 150-450[facility] on above:Performed By: #### MAGY JAMES, PT #### [facility] [address] [facility] [place] [facility] [place] [address] Positive Printer Operator: Milo Engle DORBC (Bld) [#/Vol]4.66 10*6/uLNormal4.21-5.77 [facility] on above:Performed By: #### MAGY JAMES, PT #### [facility] [address] [facility] [place] [facility] [place] [address] Positive Printer Operator: Milo Engle DOWBC (Bld) [#/Vol]6.7 10*3/uLNormal3.5-11.0 [facility] on above:Performed By: #### MAGY JAMES, PT #### [facility] [address] [facility] [place] [facility] [place] [address] Positive Printer Operator: Milo Engle DOMycoplasma Ab, IgMon 99-11-0417Qftyoytfhf Ab, IgM0.11Normal<0.91MerChildren's Hospital of ColumbusComment on above:Result Comment: Reference Range: <=0.90 Negative 0.91-1.09 Equivocal >=1.10 PositivePerformed By: #### OBS #### [facility] [address] [place] [address] Positive Printer Operator: Milo Engle DOMycoplasma Ab,IgMon 10-04-2024M. pneumoniae IgM IA Ql (S)0.11NINF - 0.91Bon ShibumiComment on above: Reference Range: <=0.90 Negative 0.91-1.09 Equivocal >=1.10 Positive [facility] Panel InformationOrdered By: Alex Alcala on 93-17-0914Ssow surface area Derived from formula2.04 m2[facility] Work Phone: [facility] Work Phone: No Panel Informationon [id number] evidence of deep vein or superficial vein [...] 1.293 cm.Color flow seen in residual lumen. Invoice Coder Details A pollard scale, color Doppler imaging and spectral Doppler analysis ultrasound was performed. During the study longitudinal and transverse views were obtained. Study was technically difficult due to: bedside exam, patient positioning and edema.[facility] CV CPACSRadiology Study observation (narrative)Bon CyMary Rutan HospitalOcc Bld, Fecal Scrnon 92-93-5250Kayqol Blood 1NegativeNormalNEGMain Campus Medical CenterComment on above:Performed By: #### OBS #### [facility] [place] [address] Positive Printer Operator: Milo Engle DOSpecimen 1 [id number] HospitalComharper university hospital on above:Performed By: #### OBS #### [facility] [address] [place] [phone] Positive Printer Operator: Milo Engle DOSpecimen 1 Bryf8420EusnxbZzyhyNewark Hospital on above:Performed By: #### OBS #### [facility] [address] [place] [phone] Positive Printer Operator: Milo Engle DOPTon 29-07-1090TZT Coag (PPP) [Relative time] 1.7 {INR}[facility] on above:Result Comment: Therapeutic Range: Moderate Anticoagulant Intensity: INR = 2.0-3.0 High Anticoagulant Intensity: INR = 2.5-3.5Performed By: #### BMPX, CDP, PT #### [facility] [address] [place] [phone] Positive Printer Operator: Milo Engle DOPT Coag (PPP) [Time]22.0 sHigh11.8-14.6[facility] Medical CenterComharper university hospital on above:Performed By: #### MAGY JAMES, PT #### [facility] [address] [place] [phone] Positive Printer Operator: Milo Engle DOProtime-INRon 03-55-3478EIT Coag (PPP) [Relative time]1.7 {INR}[facility] CenterComharper university hospital on above: Therapeutic Range: Moderate Anticoagulant Intensity: INR = 2.0-3.0 High Anticoagulant Intensity: INR = 2.5-3.5 Interpretation and review of laboratory resultsAbnormalBon Secours [facility] PT Coag (PPP) [Time]22.0 sHighBon [facility] B12/Folate Panelon 45-43-9287Tviya Acid28.5 ng/mLHigh4.8-24.2[facility] Medical CenterComment on above:Performed By: #### MAGY JAMES, PT #### [facility] [address] [place] [phone] Positive Printer Operator: Milo Engle DOCobalamin (Vitamin B12) [Mass/Vol]377 pg/mL Huyghk943-0577ExtjdMain Campus Medical CenterComharper university hospital on above:Performed By: #### MAGY JAMES, PT #### [facility] [address] [place] [phone] Positive Printer Operator: Milo Engle DOBasic Metab w/rfx MGon 97-57-4715Radje gap [Moles/Vol]8 mmol/LLow9-16[facility] CenterComharper university hospital on above:Performed By: #### MAGY JAMES, PT #### [facility] [address] [place] [phone] Positive Printer Operator: Milo Engle DOCalcium [Mass/Vol]8.3 mg/dLLow8.6-10.4[facility] Medical CenterComment on above:Performed By: #### ERIKA CDP, PT #### [facility] [address] [facility] [place] [facility] [place] [address] Positive Printer Operator: Milo Engle DOChloride [Moles/Vol]110 mmol/NTfxu51-445QkklvMain Campus Medical CenterComment on above:Performed By: #### ERIKA CDP, PT #### [facility] [address] [facility] [place] [facility] [place] [address] Positive Printer Operator: Milo Engle DOCO2 [Moles/Vol]24 mmol/DOyfmsc43-69CbbnvMain Campus Medical CenterComharper university hospital on above:Performed By: #### MAGY JAMES, PT #### [facility] [address] [facility] [place] [facility] [place] [address] Positive Printer Operator: Milo Engle DOCreatinine [Mass/Vol]1.7 mg/dLHigh0.7-1.2 [facility] CenterComharper university hospital on above:Performed By: #### MAGY JAMES, PT #### [facility] [facility] [place] [facility] [place] [address] Positive Printer Operator: Milo Engle DOGFR/1.73 sq M.predicted among non-blacks MDRD (S/P/Bld) [Vol rate/Area]40 mL/min/{1.73_m2}Low>60[facility] Comment on above:Result Comment: These [...] that affects renal tubular secretion.Performed By: #### ERIKA CDP, PT #### [facility] [address] [facility] [place] [facility] [place] [address] Positive Printer Operator: Fanelly, Milo, DOGlucose [Mass/Vol]98 mg/yTPtjzcv76-32PyjaeKettering Health Washington TownshipComharper university hospital on above:Performed By: #### MAGY JAMES, PT #### [facility] [address] [place] [address] Positive Printer Operator: Milo Engle DOPotassium [Moles/Vol]3.3 mmol/LLow3.7-5.3 [facility] CenterComharper university hospital on above:Performed By: #### MAGY JAMES, PT #### [facility] [address] [place] [address] Positive Printer Operator: Milo Engle DOSodium [Moles/Vol]142 mmol/NIgkvei477-105 [facility] CenterComharper university hospital on above:Performed By: #### MAGY JAMES, PT #### [facility] [address] [place] [phone] Positive Printer Operator: Milo Engle DOUrea nitrogen [Mass/Vol]24 mg/dLHigh8-23[facility] CenterComharper university hospital on above:Performed By: #### MAGY JAMES, PT #### [facility] [address] [place] [phone] Positive Printer Operator: Milo Engle DOBasic Metabolic Panel w/ Reflex to MGon [id number] gap [Moles/Vol]8 mmol/LLow9 - 16 mmol/LBon [facility] Calcium [Mass/Vol]8.3 mg/dLLow8.6 - 10.4 mg/dLBon Secours [facility] State East HospitalChloride [Moles/Vol]110 mmol/LHigh98 - 107 mmol/LBon [facility] HospitalCO2 [Moles/Vol] 24 mmol/L20 - 31 mmol/LBon [facility] HospitalCreatinine [Mass/Vol]1.7 mg/dL High0.7 - 1.2 mg/dLBon [facility]field HospitalEst, Glom Filt Pyno84Wzk- PINFBon Mansfield HospitalComment on above: These results [...] Mans[facility] HospitalInterpretation and review of laboratory resultsAbnormalBon Secours Memorial Regional Medical CenterPotassium [Moles/Vol]3.3 mmol/LLow3.7 - 5.3 mmol/LBon [facility] HospitalSodium [Moles/Vol]142 mmol/L136 - 145 mmol/LBon [facility] HospitalUrea nitrogen [Mass/Vol]24 mg/dLHigh8 - 23 mg/dLBon [facility] Surgical CenterCBC with Auto Differentialon [id number] (Bld) [#/Vol]0.06 10*3/uL [facility] Medical CenterBasophils/100 WBC (Bld)1 %0 - 2 %[facility] Medical CenterEosinophils (Bld) [#/Vol]0.29 10*3/uLBon Secours Memorial [facility] Center Eosinophils/100 WBC (Bld)5 %High0 - 4 %[facility] Regional Medical CenterErythrocyte distribution width (RBC) [Ratio]20.2 %High11.5 - 14.9 %[facility] Hematocrit (Bld) [Volume fraction]33.1 %Low41.0 - 53.0 %[facility] Hemoglobin (Bld) [Mass/Vol]9.9 g/dLLow13.5 - 17.5 g/dLBon [facility] Immature granulocytes (Bld) [#/Vol]0 10*3/uLBon [facility]field HospitalImmature granulocytes/100 WBC (Bld)0 %0Bon [facility] HospitalInterpretation and review of laboratory resultsAbnormalBon Secours Memorial Regional Medical CenterLymphocytes/100 WBC (Bld)22 %Low24 - 44 %[facility] Medical CenterLymphocytes/100 WBC (Bld)1.28 %[facility] HospitalH (RBC) [Entitic mass]24.3 pgLow26.0 - 34.0 pgRappahannock General HospitalHC (RBC) [Mass/Vol]29.9 g/dLLow31.0 - 37.0 g/dLBon [facility] MCV (RBC) [Entitic vol]81.3 fL80.0 - 100.0 fLBon Secours Memorial Regional Medical Center Monocytes/100 WBC (Bld)13 %High3 - 12 %[facility] Medical CenterMonocytes/100 WBC (Bld)0.75 %[facility] Medical CenterMorphology Ian (Bld) [Interp]ANISOCYTOSIS PRESENTBon Secours Memorial Regional Medical CenterMorphology Ian (Bld) [Interp]1+ ECHINOCYTESBon Secours Memorial Regional Medical CenterMorphology Ian (Bld) [Interp]1+ ELLIPTOCYTESBon Secours Memorial Regional Medical CenterNeutrophils/100 WBC (Bld)59 %36 - 66 %[facility] Nucleated RBC/100 WBC (Bld) [Ratio]0 %0 per 100 WBCBon Secours Memorial Regional Medical Center Platelet mean volume (Bld) [Entitic vol]9.6 fL8.0 - 13.5 fLBon Secours Memorial Regional Medical CenterPlatelets (Bld) [#/Vol]165 10*3/uLBon [facility]field HospitalRBC (Bld) [#/Vol]4.07 10*6/uLLow4.21 - 5.77 m/uLBon Secours Memorial Regional Medical CenterSegmented neutrophils/100 WBC (Bld)3.42 %[facility] Medical CenterWBC other (Bld) [#/Vol] 5.8Bon [facility] CenterCBC with Diffon 10-03-2024 Abs. Basophil0.06 k/uLNormal0.00-0.20[facility] Medical CenterComment on above: Performed By: #### BMPX, CDP, PT #### [facility] [address] [place] [address] Positive Printer Operator: Milo Engle DOAbs.Imm.Granulocyte0.00 k/uLNormal0.00-0.30 [facility] on above:Performed By: #### MAGY JAMES, PT #### [facility] [place] [address] Positive Printer Operator: Milo Engle DOAbs.Neutrophil (Seg)3.42 k/uLNormal1.50-8.10 [facility] on above:Performed By: #### MAGY JAMES, PT #### [facility] [address] [place] [phone] Positive Printer Operator: Milo Engle DOBasophils/100 WBC (Bld)1 %Normal0-2[facility] on above:Performed By: #### MAGY JAMES, PT #### [facility] [address] [place] [phone] Positive Printer Operator: Milo Engle DOEosinophils (Bld) [#/Vol]0.29 10*3/uLNormal 0.00-0.44[facility] CenterComharper [facility] hospital on above:Performed By: #### MAGY JAMES, PT #### [facility] [address] [place] [address] 20202 Positive Printer Operator: Milo Engle DOEosinophils/100 WBC (Bld)5 %High0-4[facility] on above:Performed By: #### MAGY JAMES, PT #### [facility] [address] [place] [phone] Positive Printer Operator: Milo Engle DOImmature granulocytes/100 WBC (Bld)0 %Normal0 [facility] CenterComharper university hospital on above:Performed By: #### MAGY JAMES, PT #### [facility] [address] [place] [address], [place] [address] Positive Printer Operator: Milo Engle DOLymphocytes (Bld) [#/Vol]1.28 10*3/uLNormal 1.10-3.70[facility] CenterComharper [facility] hospital on above:Performed By: #### BMPX, CDP, PT #### [facility] [address] [place] [phone] Positive Printer Operator: Milo Engle DOLymphocytes/100 WBC (Bld)22 %Hot35-91UwlvoMain Campus Medical CenterComharper university hospital on above:Performed By: #### ERIKA, CDP, PT #### [facility] [address] [place] [phone] Positive Printer Operator: Milo Engle DOMonocytes (Bld) [#/Vol]0.75 10*3/uLNormal 0.10-1.20[facility] on above:Performed By: #### ERIKA, CDP, PT #### [facility] [address] [place] [phone] Positive Printer Operator: Milo Engle DOMonocytes/100 WBC (Bld)13 %High3-12[facility] on above:Performed By: #### ERIKA, CDP, PT #### [facility] [address] [place] [phone] Positive Printer Operator: Milo Engle DOMorphology Ian (Bld) [Interp]ANISOCYTOSIS PRESENTNormalKettering Memorial Hospital on above:Result Comment: 1+ ECHINOCYTES 1+ ELLIPTOCYTESPerformed By: #### EMILYX, CDP, PT #### [facility] [address] [place] [phone] Positive Printer Operator: Milo Engle DONeutrophil (Seg)59 %Wvxihw76-03SxpzmMain Campus Medical CenterComharper university hospital on above:Performed By: #### MAGY JAMES, PT #### [facility] [facility] [place] [address] Positive Printer Operator: Milo Engle DOErythrocyte distribution width (RBC) [Ratio] 20.2 %High11.5-14.9[facility] CenterComharper university hospital on above:Performed By: #### MAGY JAMES, PT #### [facility] [address] [place] [phone] Positive Printer Operator: Milo Engle DOHematocrit (Bld) [Volume fraction]33.1 %Low 41.0-53.0[facility] CenterComharper university hospital on above:Performed By: #### MAGY JAMES, PT #### [facility] [address] [place] [phone] Positive Printer Operator: Milo Engle DOHemoglobin (Bld) [Mass/Vol]9.9 g/dLLow 13.5-17.5[facility] CenterComharper [facility] hospital on above:Performed By: #### MAGY JAMES, PT #### [facility] [address] [place] [phone] Positive Printer Operator: Milo Engle DOMCH (RBC) [Entitic mass]24.3 pgLow26.0-34.0 [facility] CenterComharper university hospital on above:Performed By: #### MAGY JAMES, PT #### [facility] [address] [place] [phone] Positive Printer Operator: Milo Engle DOMCHC (RBC) [Mass/Vol]29.9 g/dLLow31.0-37.0 [facility] CenterComharper [facility] hospital on above:Performed By: #### MAGY JAMES, PT #### [facility] [address] [place] [phone] Positive Printer Operator: Milo Engle DOMCV (RBC) [Entitic vol]81.3 fLNormal 80.0-100.0[facility] on above:Performed By: #### MAGY JAMES, PT #### [facility] [address] [place] [address] Positive Printer Operator: Milo Engle DONRBC Automated0.0 per 100 QAENqevfv4IciykMain Campus Medical CenterComharper university hospital on above:Performed By: #### MAGY JAMES, PT #### [facility] [address] [place] [address] Positive Printer Operator: Milo Engle DOPlatelet mean volume (Bld) [Entitic vol]9.6 fLNormal8.0-13.5[facility] on above:Performed By: #### MAGY JAMES, PT #### [facility] [facility] [place] [address] Positive Printer Operator: Milo Engle DOPlatelets (Bld) [#/Vol]165 10*3/uLNormal 150-450[facility] on above:Performed By: #### MAGY JAMES, PT #### [facility] [place] [address] Positive Printer Operator: Milo Engle DORBC (Bld) [#/Vol]4.07 10*6/uLLow4.21-5.77 [facility] on above:Performed By: #### MAGY JAMES, PT #### [facility] [place] [address] Positive Printer Operator: Milo Engle DOWBC (Bld) [#/Vol]5.8 10*3/uLNormal3.5-11.0 [facility] on above:Performed By: #### MAGY JAMES, PT #### [facility] [address] [facility] [place] [address] Positive Printer Operator: Milo Engle DOFerritinon 23-58-6688Minncord [Mass/Vol]54 ng/mLNormalBon [facility] on above:No reference range established for this age/gender.Result Comment: No reference range established for this age/gender.Performed By: #### MAGY JAMES, PT #### [facility] [place] [address] Positive Printer Operator: Milo Engle DOHaptoglobinon 01-35-4311Yptvojcjvhc [Mass/Vol]244 mg/uAVwts80 - 200 mg/dLBon Mansfield HospitalHaptoglobin244 mg/tYVmsq93-006UstxlMain Campus Medical CenterComharper university hospital on above:Performed By: #### MAGY JAMES, PT #### [facility] [address] [place] [address]. [place] [address] Positive Printer Operator: Milo Engle Austin Binding Cap.on 62-12-3077Ikjq [Mass/Vol] 18 ug/fDYvh28-986[facility] on above:Performed By: #### MAGY JAMES, PT #### [facility] [address] [place] [phone] Positive Printer Operator: Milo Engle DO% Fe Saturation8 %Jcc21-74NdveuMain Campus Medical CenterComharper university hospital on above:Performed By: #### MAGY JAMES, PT #### [facility] [address] [place] [phone] Positive Printer Operator: Milo Engle DOTotal Fe Binding Sdw343 ug/gHLze599-571OwjsnKettering Memorial Hospital on above:Performed By: #### MAGY JAMES, PT #### [facility] [address] [place] [phone] Positive Printer Operator: Milo Engle DOUnbound Fe Bind Fag733 ug/tMWtzbyp374-436 [facility] CenterComment on above:Performed By: #### MAGY JAMES, PT #### [facility] [address] [facility] [place] [facility] [place], [place] [address] Positive Printer Operator: Milo Engle Austin and TIBCon 04-79-6140Admq binding capacity [Mass/Vol]235 ug/fNJbf699 - 450 ug/dLBon Mansfield HospitalIro saturation [Mass fraction]8 %Low20 - 55 %Bon [facility]field HospitalUIBC217 ug/dL 112 - 347 ug/dLBon Mansfield HospitalLEGIONELLA ANTIGEN, URINEon 10-03-2024L. pneumophila 1 Ag IA.rapid Ql (U)NegativeNEGATIVEBon Secours [facility] Regional [facility] CenterComhar[facility] on above:L. pneumophila serogroup 1 antigen not detected. A negative result does not exclude infection with Leginella pnemophila serogroup 1 nor does it rule out other microbial-caused respiratory infections of disease caused by other serogroups of Legionella pneumophila. Bon [facility]field HospitalLactate Dehydrogenaseon 08-70-4541Jgdivjibtpzbzm and review of laboratory resultsAbnormalBon [facility] [Catalytic activity/Vol]132 U/KLsy668 - 225 U/LBon [facility] [Catalytic activity/Vol]132 U/NXmh449-232GigjkMain Campus Medical Center Comment on above:Performed By: #### MAGY JAMES, PT #### [facility] [address] [facility] [address]. [place], [place] [id number] Positive Printer Operator: Milo Engle DOLegionella Ag, Uron 21-49-7450Iaeincgpsu Ag, UrNegativeNormalNEGMain Campus Medical CenterComment on above:Result Comment: L. pneumophila serogroup 1 antigen not detected. A negative result does not exclude infection with Leginella pnemophila serogroup 1 nor does it rule out other microbial-caused respiratory infections of disease caused by other serogroups of Legionella pneumophila.Performed By: #### OBS #### [facility] [address] [facility] [place] [address] Positive Printer Operator: Milo Engle DOMRSA DNA Probe, Nasal 52-37-1245Mqeaycht Description.NASAL SWABBon [facility] Surgical CenterMRSA, DNA, Nasalon 28-78-9769WXNJ, DNA, NasalNegativeNormalNEGBon [facility] Comment on above:NEGATIVE: MRSA DNA not detected [...] MRSA infections. Performed By: #### OBS #### [facility] [address] [facility] [place] [address] Positive Printer Operator: Milo Engle DOMagnesiummoe 31-77-0785Ssbzahwit [Mass/Vol]2.2 mg/dL1.6 - 2.4 mg/dLBon [facility] Surgical CenterMagnesium [Mass/Vol]2.2 mg/dLNormal1.6-2.4MerChildren's Hospital of ColumbusComment on above: Performed By: #### BMPX, CDP, PT #### [facility] [address] [facility] [place] [address] Positive Printer Operator: Milo Engle DONo Panel Information 10-03-2024 Interpretation and review of laboratory resultsAbSpearfish Surgery Center 23-21-1777PEY Coag (PPP) [Relative time]1.7 {INR} NormalMercy University Hospitals Beachwood Medical CenterComment on above:Result Comment: Therapeutic Range: Moderate Anticoagulant Intensity: INR = 2.0-3.0 High Anticoagulant Intensity: INR = 2.5-3.5Performed By: #### BMPX, CDP, PT #### [facility] [place] [address] Positive Printer Operator: Milo Engle DOPT Coag (PPP) [Time]22.0 sHigh11.8-14.6[facility] CenterComharper university hospital on above:Performed By: #### BMPX, CDP, PT #### [facility] [address] [place] [address] Positive Printer Operator: Milo Engle DOProtime-INRon 63-77-5199SXE Coag (PPP) [Relative time]1.7 {INR}[facility] on above: Therapeutic Range: Moderate Anticoagulant Intensity: INR = 2.0-3.0 High Anticoagulant Intensity: INR = 2.5-3.5 Interpretation and review of laboratory resultsAbUVA Health University Hospital PT Coag (PPP) [Time]22.0 sHighBon [facility] Retic Counton 23-27-5819Lnegrgak Retic0.038 M/uLNormal0.030-0.080[facility] CenterComharper university hospital on above:Performed By: #### BMPX, CDP, PT #### [facility] [address] [place] [address] Positive Printer Operator: Milo Engle DOIRF11.9 %Normal2.7-18.3Mgenesis hospitaly [facility] on above:Performed By: #### BMPX, CDP, PT #### [facility] [address] [place] [address] Positive Printer Operator: Milo Engle DORetic Count0.9 %Normal0.5-2.5[facility] on above:Performed By: #### BMPX, CDP, PT #### [facility] [address] [place] [address] Positive Printer Operator: Milo Engle DORetic Vzrdsjdssn07.4 pgLow28.2-35.7MerChildren's Hospital of ColumbusComment on above:Performed By: #### BMPX, CDP, PT #### [facility] [address] [place] [address] Positive Printer Operator: Milo Engle DOReticulocyteson 16-72-0183Ycpwcmui reticulocytes/Total reticulocytes (Bld)11.9 %2.7 - 18.3 %[facility] Medical CenterInterpretation and review of laboratory resultsAbnormSpotsylvania Regional Medical CenterRetic Npzxdcwyvm31.4 pgLow28.2 - 35.7 pgBon [facility]ours [facility] Reticulocytes (Bld) [#/Vol]0.038 10*3/uLBon [facility]ours [facility] Center Reticulocytes/100 RBC (Bld)0.9 %0.5 - 2.5 %[facility] HospitalVitamin B12 & Folateon 34-13-0118Tfliyskyo (Vitamin B12) [Mass/Vol] 377 pg/mL232 - 1245 pg/mLBon Secours Memorial Regional Medical CenterFolate [Mass/Vol]28.5 ng/mLHigh 4.8 - 24.2 ng/mLBon Secours Memorial Regional Medical CenterInterpretation and review of laboratory resultsAbnormSentara Leigh HospitalBasic Metabolic Panelon 09-23-0317Xtlcw gap [Moles/Vol]11 mmol/L9 - 16 mmol/LBon Mansfield HospitalCalcium [Mass/Vol]8.8 mg/dL8.6 - 10.4 mg/dLBon [facility] Chloride [Moles/Vol]106 mmol/L98 - 107 mmol/LBon [facility]field HospitalCO2 [Moles/Vol]24 mmol/L20 - 31 mmol/LBon [facility]field HospitalCreatinine [Mass/Vol] 1.9 mg/dLHigh0.7 - 1.2 mg/dLBon Mansfield HospitalEst, Glom Filt Lvdt88Few- PINFBon Mansfield HospitalComment on above: These results [...] that affects renal tubular secretion. Glucose [Mass/Vol]105 mg/mBJxdi51 - 99 mg/dLBon [facility] Interpretation and review of laboratory resultsAbnormalBon [facility] Potassium [Moles/Vol]3.8 mmol/L3.7 - 5.3 mmol/LBon Mansfield HospitalSodium [Moles/Vol]141 mmol/L136 - 145 mmol/LBon Mansfield HospitalUrea nitrogen [Mass/Vol]22 mg/dL8 - 23 mg/dLBon Mansfield HospitalBasic Metabolic Profon 28-18-3071Ixbyg gap [Moles/Vol]11 mmol/LNormal9-16[facility] Comment on above:Performed By: #### CDP, BMP, PT, TSHX #### [facility] [address] [facility] [place] [address] Positive Printer Operator: Milo Engle DOCalcium [Mass/Vol]8.8 mg/dLNormal8.6-10.4 [facility] Medical CenterComment on above:Performed By: #### CDP, BMP, PT, TSHX #### [facility] [address] [facility] [place] [address] Positive Printer Operator: Milo Engle DOChloride [Moles/Vol]106 mmol/LAvrkjn25-491 [facility] Medical CenterComment on above:Performed By: #### MAGY, BMP, PT, TSHX #### [facility] [address] [facility] [place] [address] Positive Printer Operator: Milo Engle DOCO2 [Moles/Vol]24 mmol/IZgrgpu23-95FwqrpMain Campus Medical CenterComment on above:Performed By: #### CDP, BMP, PT, TSHX #### [facility] [address] [facility] [place] [address] Positive Printer Operator: Milo Engle DOCreatinine [Mass/Vol]1.9 mg/dLHigh0.7-1.2 [facility] Medical CenterComment on above:Performed By: #### CDP, BMP, PT, TSHX #### [facility] [facility] [place] [address] Positive Printer Operator: Milo Engle DOGFR/1.73 sq M.predicted among non-blacks MDRD (S/P/Bld) [Vol rate/Area]35 mL/min/{1.73_m2}Low>60[facility] Comment on above:Result Comment: These [...] that affects renal tubular secretion.Performed By: #### MAGY, BMP, PT, TSHX #### [facility] [address] [place] [address]. [place] [address] Positive Printer Operator: Milo Engle DOGlucose [Mass/Vol]105 mg/kBMjwm57-87PihftKettering Health Washington TownshipComment on above:Performed By: #### MAGY, BMP, PT, TSHX #### [facility] [facility] [place] [address] Positive Printer Operator: Milo Engle DOPotassium [Moles/Vol]3.8 mmol/LNormal3.7-5.3 [facility] CenterComment on above:Performed By: #### CDP, BMP, PT, TSHX #### [facility] [facility] [place] [address] Positive Printer Operator: Fanelly, Milo, DOSodium [Moles/Vol]141 mmol/CUmqopv339-311 [facility] CenterComment on above:Performed By: #### CDP, BMP, PT, TSHX #### [facility] [address] [facility] [place] [address] Positive Printer Operator: Milo Engle DOUrea nitrogen [Mass/Vol]22 mg/dLNormal8-23 [facility] CenterComment on above:Performed By: #### CDP, BMP, PT, TSHX #### [facility] [address] [place] [address] Positive Printer Operator: Milo Engle DOCBC with Auto Differentialon 10-02-2024 Basophils (Bld) [#/Vol]0 10*3/uLBon Secours Mercy HealthBasophils/100 WBC (Bld)0 %0 - 2 %[facility] HealthEosinophils (Bld) [#/Vol]0.07 10*3/uLBon Secours Mercy HealthEosinophils/100 WBC (Bld)1 %0 - 4 %[facility] Erythrocyte distribution width (RBC) [Ratio]20.6 %High11.5 - 14.9 %[facility] HealthHematocrit (Bld) [Volume fraction]38.8 %Low41.0 - 53.0 %[facility] HealthHemoglobin (Bld) [Mass/Vol]11 g/dLLow13.5 - 17.5 g/dLBon Secours Mercy HealthImmature granulocytes (Bld) [#/Vol]0.07 10*3/uLBon Secours Mercy HealthImmature granulocytes/100 WBC (Bld)1 %Chqp8Ssa [facility] Interpretation and review of laboratory resultsAbnormalBon [facility] Lymphocytes/100 WBC (Bld)13 %Low24 - 44 %[facility] HealthLymphocytes/100 WBC (Bld)0.95 %LowBon Secours Mercy HealthMCH (RBC) [Entitic mass]24.3 pgLow 26.0 - 34.0 pgBon Secours Mercy HealthMCHC (RBC) [Mass/Vol]28.4 g/dLLow31.0 - 37.0 g/dLBon Ashtabula General HospitalV (RBC) [Entitic vol]85.7 fL80.0 - 100.0 fL [facility] Medical CenterMonocytes/100 WBC (Bld)14 %High3 - 12 %[facility] Medical CenterMonocytes/100 WBC (Bld)1.02 %[facility] Medical CenterMorphology Ian (Bld) [Interp]ANISOCYTOSIS PRESENTBon Mansfield HospitalMorphology Ian (Bld) [Interp]1+ ELLIPTOCYTESBon Mansfield HospitalMorphology Ian (Bld) [Interp]1+ ECHINOCYTESBon Secours Memorial Regional Medical CenterNeutrophils/100 WBC (Bld)71 %High36 - 66 %[facility] Medical CenterNucleated RBC/100 WBC (Bld) [Ratio]0 %0 per 100 WBCBon Mansfield HospitalPlatelet mean volume (Bld) [Entitic vol]10 fL8.0 - 13.5 fL [facility] Medical CenterPlatelets (Bld) [#/Vol]245 10*3/uLBon Mansfield HospitalRBC (Bld) [#/Vol]4.53 10*6/uL4.21 - 5.77 m/uLBon [facility] Segmented neutrophils/100 WBC (Bld)5.19 %[facility] Medical CenterWBC other (Bld) [#/Vol]7.3Bon SecAscension St Mary's HospitalCBC with Diffon 77-92-1567Bld. Basophil0.00 k/uLNormal0.00-0.20[facility] CenterComment on above:Performed By: #### EMILY BHATTI, PT, TSHX #### [facility] [address] [place] [address] Positive Printer Operator: Milo Engle DOAbs.Imm.Granulocyte0.07 k/uLNormal0.00-0.30 [facility] CenterComment on above:Performed By: #### MAGY, EMILY, PT, TSHX #### [facility] [facility] [place] [address] Positive Printer Operator: Milo Engle DOAbs.Neutrophil (Seg)5.19 k/uLNormal1.50-8.10 [facility] on above:Performed By: #### CDP, BMP, PT, TSHX #### [facility] [address] [place] [address] Positive Printer Operator: Milo Engle DOBasophils/100 WBC (Bld)0 %Normal0-2MTriHealth Bethesda [facility] on above:Performed By: #### CDP, BMP, PT, TSHX #### [facility] [address] [place] [address]. [place] [address] Positive Printer Operator: Milo Engle DOEosinophils (Bld) [#/Vol]0.07 10*3/uLNormal 0.00-0.44[facility] CenterComharper university hospital on above:Performed By: #### MAGY, BMP, PT, TSHX #### [facility] [address] [place] [address] Positive Printer Operator: Milo Engle DOEosinophils/100 WBC (Bld)1 %Normal0-4[facility] on above:Performed By: #### CDP, BMP, PT, TSHX #### [facility] [address] [place] [address] Positive Printer Operator: Milo Engle DOImmature granulocytes/100 WBC (Bld)1 %High0 [facility] on above:Performed By: #### CDP, BMP, PT, TSHX #### [facility] [address] [place] [address] Positive Printer Operator: Milo Engle DOLymphocytes (Bld) [#/Vol]0.95 10*3/uLLow 1.10-3.70[facility] Medical CenterComment on above:Performed By: #### CDP, BMP, PT, TSHX #### [facility] [place] [address] Positive Printer Operator: Milo Engle DOLymphocytes/100 WBC (Bld)13 %Mgn92-76AicazMain Campus Medical CenterComment on above:Performed By: #### CDP, BMP, PT, TSHX #### [facility] [address] [place] [address] Positive Printer Operator: Milo Engle DOMonocytes (Bld) [#/Vol]1.02 10*3/uLNormal 0.10-1.20[facility] Medical CenterComment on above:Performed By: #### CDP, BMP, PT, TSHX #### [facility] [address] [place] [address] Positive Printer Operator: Milo Engle DOMonocytes/100 WBC (Bld)14 %High3-12[facility] Campus Medical CenterComment on above:Performed By: #### CDP, BMP, PT, TSHX #### [facility] [address] [place] [address] Positive Printer Operator: Milo Engle DOMorphology Ian (Bld) [Interp]ANISOCYTOSIS PRESENTNormalMain Campus Medical CenterComment on above:Result Comment: 1+ ELLIPTOCYTES 1+ ECHINOCYTESPerformed By: #### CDP, BMP, PT, TSHX #### [facility] [address] [place] [address] Positive Printer Operator: Milo Engle DONeutrophil (Seg)71 %Hswf86-92CjrouMain Campus Medical CenterComment on above:Performed By: #### CDP, BMP, PT, TSHX #### [facility] [address] [place] [address] Positive Printer Operator: Milo Engle DOErythrocyte distribution width (RBC) [Ratio] 20.6 %High11.5-14.9[facility] on above:Performed By: #### CDP, BMP, PT, TSHX #### [facility] [address] [place] [address] Positive Printer Operator: Milo Engle DOHematocrit (Bld) [Volume fraction]38.8 %Low 41.0-53.0[facility] CenterComharper university hospital on above:Performed By: #### CDP, BMP, PT, TSHX #### [facility] [address] [place] [address] Positive Printer Operator: Milo Engle DOHemoglobin (Bld) [Mass/Vol]11.0 g/dLLow 13.5-17.5[facility] CenterComharper university hospital on above:Performed By: #### CDP, BMP, PT, TSHX #### [facility] [address] [place] [address] Positive Printer Operator: Milo Engle DOMCH (RBC) [Entitic mass]24.3 pgLow26.0-34.0 [facility] on above:Performed By: #### CDP, BMP, PT, TSHX #### [facility] [address] [place] [address] Positive Printer Operator: Milo Engle DOMCHC (RBC) [Mass/Vol]28.4 g/dLLow31.0-37.0 [facility] on above:Performed By: #### CDP, BMP, PT, TSHX #### [facility] [address] [place] [address] Positive Printer Operator: Milo Engle DOMCV (RBC) [Entitic vol]85.7 fLNormal 80.0-100.0[facility] on above:Performed By: #### CDP, BMP, PT, TSHX #### [facility] [address] [facility] [place] [address] Positive Printer Operator: Milo Engle DONRBC Automated0.0 per 100 YIONxchai7CnkbrMain Campus Medical CenterComharper university hospital on above:Performed By: #### CDP, BMP, PT, TSHX #### [facility] [address] [place] [address] Positive Printer Operator: Milo Engle DOPlatelet mean volume (Bld) [Entitic vol]10.0 fLNormal8.0-13.5[facility] on above:Performed By: #### CDP, BMP, PT, TSHX #### [facility] [address] [place] [address] Positive Printer Operator: Milo Engle DOPlatelets (Bld) [#/Vol]245 10*3/uLNormal 150-450[facility] Medical CenterComharper university hospital on above:Performed By: #### CDP, BMP, PT, TSHX #### [facility] [place] [address] Positive Printer Operator: Milo Engle DORBC (Bld) [#/Vol]4.53 10*6/uLNormal4.21-5.77 [facility] on above:Performed By: #### CDP, BMP, PT, TSHX #### [facility] [facility] [place] [address] Positive Printer Operator: Milo Engle DOWBC (Bld) [#/Vol]7.3 10*3/uLNormal3.5-11.0 [facility] on above:Performed By: #### CDP, BMP, PT, TSHX #### [facility] [address] [place] [address] Positive Printer Operator: Milo Engle DOMRSA, DNA Nasalon 85-90-9542Dhpsugup Description.NASAL SWABNormalMerChildren's Hospital of ColumbusComharper university hospital on above:Performed By: #### OBS #### [facility] [address] [place] [address] Positive Printer Operator: Milo Engle DONo Panel [facility] 70-39-2924Qzr [facility] 17-36-0891AEH Coag (PPP) [Relative time]1.9 {INR}NormalMain Campus Medical CenterComharper university hospital on above:Result Comment: Therapeutic Range: Moderate Anticoagulant Intensity: INR = 2.0-3.0 High Anticoagulant Intensity: INR = 2.5-3.5Performed By: #### CDP, BMP, PT, TSHX #### [facility] [place] [address] Positive Printer Operator: Milo Engle DOPT Coag (PPP) [Time]23.2 sHigh11.8-14.6[facility] on above:Performed By: #### CDP, BMP, PT, TSHX #### [facility] [place] [address] Positive Printer Operator: Milo Engle DOProcalcitoninojoey 79-23-4014Soynwavrqzlwq [Mass/Vol]0.08 ng/mL0.00 - 0.09 ng/mLBon [facility]field HospitalComharper university hospital on above: Suspected Sepsis: <0.50 ng/mL Low [...] entered into the Change in Procalcitonin Calculator (www.kwiuoo-eda-hnogygwdlt.ECO) to determine the patient's Mortality Risk Prognosis In healthy neonates, plasma Procalcitonin (PCT) concentrations increase gradually after , reaching peak values at about 24 hours of age then decrease to normal values below 0.5 ng/mL by 48-72 hours of age. [facility] Medical CenterProcalcitonin0.08 ng/mLNormal0.00-0.09[facility] Medical CenterComment on above:Result Comment: Suspected Sepsis: [...] entered into the Change in Procalcitonin Calculator (www.znyobc-tkk-pwqtgynnms.ECO) to determine the patient's Mortality Risk Prognosis In healthy neonates, plasma Procalcitonin (PCT) concentrations increase gradually after , reaching peak values at about 24 hours of age then decrease to normal values below 0.5 ng/mL by 48-72 hours of age.Performed By: #### MYCM #### [employer] [address] [place], [place] [address] Positive Printer Operator: Loi Oliver MD #### PRCDANILO #### [facility] [address] [place] [address] Positive Printer Operator: Milo Engle DOProtime-INRon 52-95-0161XXG Coag (PPP) [Relative time]1.9 {INR}[facility] on above: Therapeutic Range: Moderate Anticoagulant Intensity: INR = 2.0-3.0 High Anticoagulant Intensity: INR = 2.5-3.5 Interpretation and review of laboratory resultsAbUVA Health University Hospital PT Coag (PPP) [Time]23.2 sHighBon [facility] Resp Viral Panelon 36-71-3468HaqpktgmtjLyo detectedNormalNOTDEAdena Health System on above:Performed By: #### RVP #### [facility] [address] [place] [address] Positive Printer Operator: Milo Engle [address] [address] Positive Printer Operator: Christophe Correia.parapertussisNot detectedNormalNOTDET [facility] on above:Performed By: #### RVP #### [facility] [address] [place] [address] Positive Printer Operator: Milo Engle [address] [address] Positive Printer Operator: Carl Correia pertussisNot detectedNormalNOTDET [facility] on above:Performed By: #### RVP #### [facility] [address] [place] [address] Positive Printer Operator: Milo Engle [address] [address] Positive Printer Operator: Nasrin Correia.pneumoniaeNot detectedNormalNOTDEAdena Health System on above:Performed By: #### RVP #### [facility] [address] [place] [address] Positive Printer Operator: Milo Engle [facility] [address] [place] [address] Positive Printer Operator: Marge Correiaavirus 229ENot detectedNormWadsworth-Rittman HospitalComharper university hospital on above:Performed By: #### RVP #### [facility] [address] [facility] [place] [place] [address] Positive Printer Operator: Milo Engle [address] [address] Positive Printer Operator: Marge Correiaavirus [id number] detectedNormalCleveland Clinic Lutheran HospitalComharper university hospital on above:Performed By: #### RVP #### [facility] [address] [facility] [place] [place] [address] Positive Printer Operator: Milo Engle [address] [address] Positive Printer Operator: Marge Correiaavirus [id number] detectedNoSt. Mary's Medical Center, Ironton CampusComharper university hospital on above:Performed By: #### RVP #### [facility] [address] [facility] [place] [place] [address] Positive Printer Operator: Milo Engle DO [address] [address] Positive Printer Operator: Marge Correiaavirus [id number] detectedNormkyNOTThe MetroHealth SystemComharper university hospital on above:Performed By: #### RVP #### [facility] [address] [facility] [place] [address] Positive Printer Operator: Milo Engle [address] [address] Positive Printer Operator: Yoselin Correia MetapneumoDetectedAbnormalNOTThe MetroHealth SystemComharper university hospital on above:Performed By: #### RVP #### [facility] [address] [place] [address] Positive Printer Operator: Milo Engle Hepa Wash [address] [address] Positive Printer Operator: Ronni Correia ANot detectedNormalNOTDESelect Medical Specialty Hospital - Columbus SouthComharper university hospital on above:Performed By: #### RVP #### [facility] [address] [facility] [place] [place] [address] Positive Printer Operator: Milo Engle Hepa Wash [address] [address] Positive Printer Operator: Ronni Correia BNot detectedNormalNOTDESelect Medical Specialty Hospital - [facility] SouthComharper university hospital on above:Performed By: #### RVP #### [facility] [address] [place] [address] Positive Printer Operator: Milo Engle [employer] [address] [place] [address] Positive Printer Operator: Yaritza Correia.pneumoniaeNot detectedNormalNOTDESelect Medical Specialty Hospital - [facility] SouthComharper university hospital on above:Result Comment: Performed by multiplexed nucleic acid assay.Performed By: #### RVP #### [facility] [address] [place] [address] Positive Printer Operator: Milo Engle [employer] [address] [place] [address] Positive Printer Operator: Geo Correia 1Not detectedNormalNOTThe MetroHealth SystemComharper university hospital on above:Performed By: #### RVP #### [facility] [address] [place] [address] Positive Printer Operator: Milo Engle [employer] [address] [place] [address] Positive Printer Operator: Geo Correia 2Not detectedNormalNOTDESelect Medical Specialty Hospital - [facility] SouthComharper university hospital on above:Performed By: #### RVP #### [facility] [address] [facility] [place] [address] Positive Printer Operator: Milo Engle DO [employer] [address] Positive Printer Operator: Geovany Correianza 3Not detectedNormalNOTDESelect Medical Specialty Hospital - [facility] SouthComharper university hospital on above:Performed By: #### RVP #### [facility] [address] [facility] [place] [place] [address] Positive Printer Operator: Milo Engle Hep[employer] [address] [address] Positive Printer Operator: Berta Correiaza 4Not detectedNormWadsworth-Rittman HospitalComharper university hospital on above:Performed By: #### RVP #### [facility] [address] [facility] [place] [place] [address] Positive Printer Operator: Milo Engle Hepa [employer] [address] [address] Positive Printer Operator: JUDITH Correiaesp Syncytial VirusNot detectedNormalNOTDET [facility] CenterComharper university hospital on above:Performed By: #### RVP #### [facility] [address] [facility] [place] [place] [address] Positive Printer Operator: Milo Engle [place] [address] [place] [address] Positive Printer Operator: JUDITH Correiahino/EnterovirusNot detectedNormalNOTMagruder Memorial Hospital on above:Performed By: #### RVP #### [facility] [address] [facility] [place] [place] [address] Positive Printer Operator: Milo Engle [facility] [address] [place] [address] Positive Printer Operator: MATHIEU Correia-CoV-2 (COVID-19) RNA KARI+probe Ql (Unsp spec)Not detectedNormalNOTDESelect Medical Specialty Hospital - Columbus SouthComment on above: Performed By: #### RVP #### [facility] [address] [place] [address] Positive Printer Operator: Milo Engle [address] [address] Positive Printer Operator: Mary Correia:.NASOPHARYNGEAL SWABNormalMerChildren's Hospital of ColumbusComment on above:Performed By: #### RVP #### [facility] [address] [place] [address] Positive Printer Operator: Milo Engle [address] [address] Positive Printer Operator: JUDITH Correiaespiratory Panel, Molecular, with COVID-19 (Restricted: peds pts or suitable admitted adults)on 17-02-1332Bihrvsdfdp DNA KARI+non-probe Ql (Nph)Not detectedNot DetectedBon SecMary Rutan HospitalB. parapertussis [id number] DNA KARI+non-probe Ql (Nph)Not detectedNot DetectedBon Secours [facility] State East HospitalB. pertussis DNA KARI+probe Ql (Unsp spec)Not detectedNot DetectedBon Secours [facility] State East HospitalC. pneumoniae DNA KARI+non-probe Ql (Nph)Not detectedNot DetectedBon Secours [facility] East HospitalFLUAV RNA KARI+non-probe Ql (Nph)Not detectedNot DetectedBon Secours [facility] HealthFLUBV RNA KARI+non-probe Ql (Nph)Not detectedNot DetectedBon Secours [facility] Springfieldy HealthHCoV 229E RNA KARI+non-probe Ql (Nph) Not detectedNot DetectedBon Secours [facility] HealthHCoV HKU1 RNA KARI+non-probe Ql (Nph)Not detectedNot DetectedBon Secours [facility] HealthHCoV NL63 RNA KARI+non-probe Ql (Nph)Not detectedNot DetectedBon Secours [facility] HealthHCoV OC43 RNA KARI+non- probe Ql (Nph)Not detectedNot DetectedBon [place] HospitalhMPV RNA KARI+non- probe Ql (Nph)DetectedAbnormalNot DetectedBon [place] HospitalInterpretation and review of laboratory resultsAbnormalBon [place] HospitalM. pneumoniae DNA KARI+non-probe Ql (Nph)Not detectedNot DetectedBon [...] HospitalRSV RNA KARI+non-probe Ql (Nph)Not detectedNot DetectedBon [place] HospitalSARS-CoV-2 (COVID-19) RNA KARI+non-probe Ql (Nph)Not detectedNot DetectedBon [place] HospitalSpecimen Description.NASOPHARYNGEAL SWABBon [facility] reflex to FT87-58-3342LCH Qn1.29 m[IU]/LBon [facility] w/reflex to FT79-20-8501Sibpwuo Stim. Horm.1.29 uIU/mLNormal 0.27-4.20[facility] Beachwood Medical CenterComment on above:Performed By: #### CDP, BMP, PT, TSHX #### [facility] [address] [facility] [place] [address] Positive Printer Operator: Milo Engle DOUrinlinda w/ Microon 01-25-8703RkzsbhgsINF AbnormalNONEMercMarymount HospitalComment on above:Performed By: #### OBS #### [facility] [address] [facility] [place] [address] Positive Printer Operator: Milo Engle DOBilirubin, SemiQt,UrNegativeNormalNEGMerChildren's Hospital of ColumbusComharper university hospital on above:Performed By: #### OBS #### [facility] [address] [place] [address] Positive Printer Operator: Milo Engle DOBlood, UrineTRACEAbnormalNEGMerChildren's Hospital of ColumbusComharper university hospital on above:Performed By: #### OBS #### [facility] [address] [place] [address] Positive Printer Operator: Milo Engle DOCasts6 TO 9AbnormalNONEMercMarymount HospitalComharper university hospital on above:Performed By: #### OBS #### [facility] [address] [place] [address] Positive Printer Operator: Milo Engle DOClarity (U)ClearNormalCLEARMerChildren's Hospital of ColumbusComharper university hospital on above:Performed By: #### OBS #### [facility] [address] [place] [address] Positive Printer Operator: Milo Engle DOColor (U)YellowNormalYELMerChildren's Hospital of ColumbusComharper university hospital on above:Performed By: #### OBS #### [facility] [address] [place] [address] Positive Printer Operator: Milo Engle DOEpithelial cells LM Ql (Urine sed)0 TO 2 NormalMerChildren's Hospital of ColumbusComharper university hospital on above:Performed By: #### OBS #### [facility] [address] [place] [address] Positive Printer Operator: Milo Engle DOGlucose Ql (U)NegativeNormalNEGMerChildren's Hospital of ColumbusComharper university hospital on above:Performed By: #### OBS #### [facility] [address] [place] [address], [place] [address] Positive Printer Operator: Milo Engle DOKetones Ql (U)NegativeNormalNEGMain Campus Medical CenterComharper university hospital on above:Performed By: #### OBS #### [facility] [address] [place] [address] Positive Printer Operator: Milo Engle DOLeurachaelcytbell esterase Test strip Ql (U)MOD AbnormalNEGMain Campus Medical CenterComharper university hospital on above:Performed By: #### OBS #### [facility] [address] [place] [address] Positive Printer Operator: Milo Engle DONitrite,UrPositiveAbnormalNEGKettering Memorial Hospital on above:Performed By: #### OBS #### [address] [address] Positive Printer Operator: Milo Engle DOPH,Ur6.2Jabian9.0-8.0Main Campus Medical CenterComharper university hospital on above:Performed By: #### OBS #### [facility] [address] [place] [address] Positive Printer Operator: Milo Engle DOProtein Ql (U)1+ mg/dLAbnormalNEGKettering Memorial Hospital on above:Performed By: #### OBS #### [facility] [address] [place] [address] Positive Printer Operator: Milo Engle DOSpec. [place],Ur1.617Jovbhh2.000-1.030[facility] on above:Performed By: #### OBS #### [facility] [address] [place] [address] Positive Printer Operator: Milo Engle DOUrine RBC's6 TO 0CynqlmkwY87KqljdKettering Memorial Hospital on above:Performed By: #### OBS #### [facility] [address] [facility] [place] [address] Positive Printer Operator: Milo Engle DOUrine WBC's51 TO 915VyzskvmiX92PaycxMain Campus Medical CenterComharper university hospital on above:Performed By: #### OBS #### [facility] [address] [place] [address] Positive Printer Operator: Milo Engle DOUrobilinogen,UrNormalNormal0.0-1.0Main Campus Medical CenterComharper university hospital on above:Performed By: #### OBS #### [facility] [address] [place] [address] Positive Printer Operator: Milo Engle DOUrinalysis with Microscopicon 10-02-2024 Bacteria LM Ql (Urine sed)FEWAbnormalNoneBon Secours Mercy HealthBilirubin Ql (U)NegativeNEGATIVEBon Secours Mercy HealthCasts LM.LPF (Urine sed) [#/Area]6 TO 9AbnormalNone [...] Mercy HealthRBC LM.HPF (Urine sed) [#/Area]6 TO 9Bqqtfnna1 TO 2 /HPFBon Secours Memorial [facility] Center Specific gravity (U) [Rel density]1.0171.000 - 1.030[facility] Urobilinogen Qn (U)Normal0.0 - 1.0 EU/dLBon Mansfield HospitalWBC LM.HPF (Urine sed) [#/Area]51 TO 496Lifkepuy4 TO 5 /HPFSentara Princess Anne HospitalUrine Cultureon 10-30-9200Lrsxhyzu identified Cx Nom (U) ORGANISM: Klebsiella oxytoca (O:KLEOXY) [place] Count >100,000 ORGANISM: Enterobacter cloacae complex (O:ENTCLOCPLX) [place] Count >100,000 Aerobic RITESH Charge (NMIC56) SUSCEPTIBILITY [...] RESISTANT TO ALL B-LACTAM DRUGS. PERFORMED BY: [place] [address] PATHOLOGIST EMERGENCY WORKER ED CRUZ M.D.NormalThe [facility]one [facility] Women'S Hospital Physician GroupComment on above: Performed By: #### ADDONUAPLUS, CUU #### [address] StreetUrine cultureOrdered By: Robe Hansen on 84-84-8673Wjnpqeob identified Cx Nom (U)AbnormalSalem City HospitalBacteria identified Cx Nom (U)AbnormalSalem City HospitalUS aortaon 82-88-0907CS aortaPremier Health Atrium [facility] [address] [place] [address] Ultrasound Report Signed Patient: Alex Anderson MR#: [id number] 38 : 1945 Acct:[id number] Age/Sex: 78 / M ADM Date: 09/23/24 Loc: [facility] Room: Type: [facility] Attending Dr: Margarito Valentine MD Ordering Provider: [...] ANEURYSM SAC. Impression dictated by: Margarito Valentine MD,IVETT,FS 09/30/2024 8:31 AM Dictation Location: RAD-DOC-04 Tech: Juani Steward Transcribed By: LIONEL 09/30/24830 Dictated By: Margarito Valentine MD 09/30/24829 Signed By: 09/30/2431[facility] Physician GroupUS arterial duplex LE BIon 33-69-9655HX arterial duplex LE [place] [facility] [address] [place] [address] Ultrasound Report Signed Patient: Alex Anderson MR#: [id number] [birth year] : 1945 Acct:[id number] Age/Sex: 78 / M ADM Date: 09/23/24 Loc: [facility] Room: Type: [facility] Attending Dr: Margarito Valentine MD Ordering Provider: [...] artery aneurysm. Impression dictated by: Margarito Valentine MD,FACS,FSVS 09/30/2024 8:30 AM Dictation Location: RAD-DOC-04 Tech: Juani Steward Transcribed By: LIONEL 09/30/24829 Dictated By: Margarito Valentine MD 09/30/24 0829 Signed By: 09/30/24 0830[facility] Physician GroupUrine Cultureon 09-28-2024 Bacteria identified Cx Nom (U)ORGANISM: Enterobacter cloacae complex (O:ENTCLOCPLX) [place] Count >100,000 ORGANISM: Enterobacter cloacae complex (O:ENTCLOCPLX) [place] Count >100,000 Aerobic RITESH Charge (NMIC56) SUSCEPTIBILITY [...] RESISTANT TO ALL B-LACTAM DRUGS. PERFORMED BY: [facility] [address] [place] [address] PATHOLOGIST EMERGENCY WORKER ED CRUZ M.D.NormalThe [facility] Women'S Hospital Physician GroupComment on above: Performed By: #### BLAKE, CUU #### [facility] [address] [place] [address] USAUrine cultureOrdered By: Talya Bo on 22-68-0181Oyeorfvn identified Cx Nom (U)AbnormalSalem City HospitalUrinalysis macro (dipstick) panel (U)on 99-72-5754Cqusndqef, UANegativeNegative - 4(70) +++ mg/dL NOMS HealthcareBlood, [...] - 12 mg/dLNOMS HealthcareNOMS HealthcareECG 12 Leadon 56-85-1278PNH revealed normal sinus rhythm, right axis deviation, IVCD, 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 [address]- Medications What How Much When Instructions Unchanged [...] you for choosing us for your care. [facility] Miami Valley HospitalITPon 04-73-6042[place] [address] Cardiac Rehab Report Signed Patient: ALEX ANDERSON MR#: [id number] : 1945 Acct:[id number] Age/Sex: 78 / M ADM Date: 08/23/24 Loc: CR Attending Dr: TEO AL Ordering Physician: Martita Garnica D.O. Date of Service: 08/23/24 Procedure(s): ITP Accession Number(s): [id number] cc: [facility] Test Date: 2024-08-23 Pat Name: ALEX ANDERSON Department: Room: - Gender: Male Sap Business Objects Developer: : 1945 Requested By: MARTITA GARNICA Order Number: [id number] Reading MD: MARTITA GARNICA Interpretive Statements Session Date: Electronically Signed On 09-05-2024 19:58:42 EDT by MARTITA GARNICA Dictated By: Martita Garnica D.O. Signed By: 09/05/24195809/05/241958 DD/ 40 TD/TT: Calibration Laboratory Technician:ALEMadiologIker blackburn MD - 09/05/2024 [place] [address] Cardiac Rehab Report Signed Patient: ALEX ANDERSON MR#: [id number] : 1945 Acct:[id number] Age/Sex: 78 / M ADM Date: 08/23/24 Loc: CR Attending Dr: TEO AL Ordering Physician: Martita Garnica D.O. Date of Service: 08/23/24 Procedure(s): ITP Accession Number(s): [id number] cc: [facility] Test Date: 2024-08-23 Pat Name: ALEX ANDERSON Department: Room: - Gender: Male Sap Business Objects Developer: : 1945 Requested By: MARTITA GARNICA Order Number: [id number] Reading MD: MARTITA GARNICA Interpretive Statements Session Date: Electronically Signed On 09-05-2024 19:58:42 EDT by MARTITA GARNICA Dictated By: Martita Garnica D.O. Signed By: 09/05/24195809/05/241958 DD/ 144 TD/TT: Calibration Laboratory Technician: MARSHAL MadisonITPOrdered By: Iker Radiology on 32-29-8585LY[facility] Work Phone: aLL LIPID PROFILE (FASTING)on 97-09-9471SZIO HDL RATIO 2NOMS HealthcareComment on above:3.3 - 4.4 LOW RISK 4.4 - 7.1 AVERAGE RISK 7.1 - 11.0 MODERATE RISK >11.0 HIGH RISK Cholesterol [Mass/Vol]86 mg/dLNINF - 200 mg/dLNOMS HealthcareCholesterol in HDL [Mass/Vol]43 mg/dL40 - 60 mg/dLNOMS HealthcareComment on above:> or =60 mg/dl - LOW CARDIOVASCULAR RISK <40 mg/dl - HIGH CARDIOVASCULAR RISK Magnesium [Mass/Vol]26.8 mg/dLNOMS HealthcareComment on above:<100 mg/dl OPTIMAL 100-129 mg/dl NEAR OR ABOVE OPTIMAL 130-159 mg/dl BORDERLINE HIGH 160-189 mg/dl HIGH >190 mg/dl VERY HIGH Magnesium [Mass/Vol]16.2 mg/dLNOMS HealthcareTriglyceride [Mass/Vol]81 mg/dLNINF - 150 mg/dLNOMS HealthcareALL THYROID STIM HORMONEon 87-21-2575ZXQ Qn0.537 m[IU]/LNOMS HealthcareNo Panel Informationon 67-52-3648UEUZMTDMZDULF Healthcare ITPon 38-43-3078Eccuuxckk Study observation (narrative)NOMS HealthcareAmbulatory Visit Summaryon 88-38-0196Lhuohsxxsy Visit SummaryAmbulatory Visit Summary ALEX ANDERSON :1945 [...] Follow-Up Appointments 2024 10:40 AM EDT With: Patricia MONTEZ, Fabi Rich Where: [facility] [address] [place] [address] [place] [address]- Friday. 2024 2:00 PM EDT With: ARLENE CASILLAS, Katia Macias Where: [facility] [address] [place] [address]- Medications What How Much When Instructions Unchanged [...] you for choosing us for your care. [facility] HospitalTRANSTHORACIC ECHO (TTE) LIMITED on 97-95-7637DJHEMXSRGLKWG ECHO (TTE) [facility] [address] [facility], [address], [place] [address] TRANSTHORACIC ECHOCARDIOGRAM REPORT Patient Name: ALEX ANDERSON Reading Physician: [id number] Ana Castro MD Study Date: 08/06/2024 Ordering Provider: [id number] TEO AL MRN/PID: [id number] Fellow: Nurse: Date of /Age: 7 1945 / 78 years Trauma Coordinator: Marlyn Castro RDCS, RT(R), RDMS, RVT Gender Assigned at Additional Staff: : Height: 187.96 cm Admit Date: Weight: 92.53 kg Admission Status: Outpatient BSA / BMI: 2.19 m2 / 26.19 Department Location: [facility] Heart kg/m2 [place] Blood Pressure: 98 /64 mmHg Study Type: TRANSTHORACIC ECHO (TTE) LIMITED Diagnosis/ICD: Atherosclerotic heart disease of [place] coronary artery without angina pectoris-I25.10; ST elevation (STEMI) myocardial infarction of unspecified site-I21.3 Indication: STEMI CPT Codes: Echo Limited-56626 Patient History: Smoker: Former. Pertinent History: A-Fib, [...] 0.6 m/s (0.6-0.9m/s) PV Max P.6 mmHg [id number] Ana Castro MD Electronically signed on 08/11/2024 at 5:54:03 PM Final [facility] Urineon 08-02-2024 Bacteria identified Cx Nom (U)Microbiology PROCEDURE: Urine Culture [R1] SOURCE: U Cath BODY SITE: COLLECTED DATE/TIME: 07/29/2024 14:33 EST RECEIVED DATE/TIME: 07/30/2024 17:43 EST START DATE/TIME: 07/30/2024 17:43 EST FREE TEXT SOURCE: ARLENE CASILLAS, Katia SMAUELS MD, Katia Macias FINAL REPORTS Final Report [] Verified Date/Time: [...] Locations R1: This test was performed at: [facility], [address] [place] [address], [address]- , , HplpnbSbjagtTrinity Health System West CampusComment on above:Performed By: #### [id number] #### [facility] [address] [place] [address]Ljtmmyipwnc distribution width Auto (RBC) [Ratio]on 08-02-2024 Erythrocyte distribution width (RBC) [Ratio]Erythrocyte distribution width [Ratio] by Automated njpzxDgjy38.0-15.0[facility] Estimated glomerular filtration rate (GFR) non- Americanon 08-02-2024 GFR/1.73 sq M.predicted among non-blacks MDRD (S/P/Bld) [Vol rate/Area]Estimated glomerular filtration rate (GFR) non- AmericanLow>=60 mL/min/1.73m 2 [facility] HospitalHematocrit Auto (Bld) [Volume fraction]on 59-22-3207Ovoqcesxyl (Bld) [Volume fraction]Hematocrit [Volume Fraction] of Blood by Automated tsyczNsy49.0-54.0[facility] HospitalHemoglobin [Mass/volume] in Bloodon 42-22-3225Rczheuyrkd (Bld) [Mass/Vol]Hemoglobin [Mass/volume] in BtcygVrg47.0-18.0[facility] HospitalIron binding capacity [Mass/volume] in Serum or Plasmaon 16-01-9084Gvwe binding capacity [Mass/Vol]Iron binding capacity [Mass/volume] in Serum or Isocpu418.0-450.0 [facility] HospitalIron saturation [Mass Fraction] in Serum or Plasmaon 68-18-7472Dzwa saturation [Mass fraction]Iron saturation [Mass Fraction] in Serum or PlasmaSalem City HospitalLaboratory - Chemistry and Chemistry - challengeon 94-38-9520Eapnvyw [Mass/Vol]3.2 g/dLLow 3.4-5.0[facility] HospitalCalcium [Mass/Vol]8.5 mg/dL8.5-10.1 [facility] HospitalChloride [Moles/Vol]107 mmol/G20-603QkwnytglaSalem City HospitalCO2 [Moles/Vol]28.3 mmol/L21.0-32.0[facility] HospitalCobalamin (Vitamin B12) [Mass/Vol]399 pg/cO748-5808StkafbtorSalem City HospitalComment on above:Performed at: [facility] - [facility] [id number] Director: Morgan Carpenter PhD, Phone: [phone] [Mass/Vol]2.07 mg/dLHigh0.70-1.30[facility] HospitalFerritin [Mass/Vol]35.0 ng/mL26.0-388.0[facility] GFR/1.73 sq M.predicted MDRD (S/P/Bld) [Vol rate/Area]38 mL/min/{1.73_m2}Low>=60 mL/min/1.73m 2FMedina HospitalGlucose [Mass/Vol]106 mg/zY92-930 [facility] HospitalIron [Mass/Vol]22.0 ug/dLLow65.0-175.0[facility] HospitalMagnesium [Mass/Vol]2.1 mg/dL1.8-2.4FMedina HospitalPotassium [Moles/Vol]4.1 mmol/L3.5-5.1FToledo Hospitalodium [Moles/Vol]144 mmol/G364-054YusgbgjenSalem City HospitalUrate [Mass/Vol]5.8 mg/dL3.5-7.2FMedina HospitalUrea nitrogen [Mass/Vol]28.0 mg/dLHigh7.0-18.0[facility] HospitalUrea nitrogen/Creatinine [Mass ratio]13.5 mg/mgSalem City Hospital Laboratory - Urinalysison 14-62-3234Iexghue (U) [Mass/Vol]19.4 mg/dLHigh<=11.9 [facility] HospitalLeukocytes [#/volume] corrected for nucleated erythrocytes in Blood by Automated counon 29-90-4447DXK corrected for nucl RBC Auto (Bld) [#/Vol]Leukocytes [#/volume] corrected for nucleated erythrocytes in Blood by Automated coun4.0-11.0[facility] HospitalMCH Auto (RBC) [Entitic mass]on 08-38-0262SFY (RBC) [Entitic mass]MCH [Entitic mass] by Automated nqgivFct36.9-34.0[facility] HospitalHC Auto (RBC) [Mass/Vol]on 36-55-9038TYMW (RBC) [Mass/Vol]MCHC [Mass/volume] by Automated jlffiKnb49.9-35.2FMedina HospitalMCV Auto (RBC) [Entitic vol]on 50-05-8424GJF (RBC) [Entitic vol]MCV [Entitic volume] by Automated countLow 80.0-94.0[facility] HospitalNo Panel Informationon - Hydroxy Vitamin D Total48.3 ng/mLSalem City HospitalComment on above:<20 ng/mL Vit D -<30 ng/mL Vit D xbuqtsyzsosl41-895 ng/mL Vit D sufficient>100 ng/mL Potential OyegthnoTsnqyh75.30 ng/mL8.60-58.90[facility] HospitalParathyroid Hormone (Intact)62 pg/dC52-54SucupeawmSalem City HospitalComment on above:Performed at: [facility] - [facility] [address] [id number] Director: Morgan Carpenter PhD, Phone: [phone] Level3.1 mg/dL2.6-4.7FMedina HospitalUrine Random Eumhkebgxw25.50 mg/dL20.00-300.00[facility] Platelet mean volume Auto (Bld) [Entitic vol]on 49-39-5759Edcqcikl mean volume (Bld) [Entitic vol]Platelet mean volume [Entitic volume] in Blood by Automated count9.5-13.5FMedina HospitalPlatelets Auto (Bld) [#/Vol]on 62-81-9832Htsmenfjb (Bld) [#/Vol]Platelets [#/volume] in Blood by Automated -540EmedlglcoSalem City HospitalRBC Auto (Bld) [#/Vol]on 08-02-2024 RBC (Bld) [#/Vol]Erythrocytes [#/volume] in Blood by Automated countLow4.70-6.10 [facility] Hospital - Youngstownerum or plasma anion gap determinationon 86-55-6657Erdcr gap [Moles/Vol]Serum or plasma anion gap determinationSalem City HospitalUrine protein/creatinine ratioon 08-02-2024 Protein/Creatinine (U) [Ratio]Urine protein/creatinine ratioSalem City HospitalECG 12 Leadon 74-07-3066IOH revealed normal sinus rhythm with first-degree AV block, septal myocardial infarction of undetermined age, diffuse repolarization abnormalities, abnormal ECGCPACSMiami Valley Hospital Work Phone: ITPon 69-85-7148Vnt[place] [address] Cardiac Rehab Report Signed Patient: ALEX ANDERSON MR#: [id number] : 1945 Acct:[id number] Age/Sex: 78 / M ADM Date: 07/23/24 Loc: CR Attending Dr: TEO AL Ordering Physician: Martita Garnica D.O. Date of Service: 07/23/24 Procedure(s): ITP Accession Number(s): [id number] cc: [facility] Test Date: 2024-07-23 Pat Name: ALEX ANDERSON Department: Room: - Gender: Male Sap Business Objects Developer: : 1945 Requested By: MARTITA GARNICA Order Number: [id number] Silverio MD: MARTITA GARNICA Interpretive Statements Session Date: Electronically Signed On 07-25-2024 8:18:39 EST by MARTITA GARNICA Dictated By: Martita Garnica D.O. Signed By: 07/25/2481707/25/24 0818 DD/ 1540 TD/TT: Calibration Laboratory Technician:ALEMadiologIker blackburn, - 07/25/2024 [place] [address] Cardiac Rehab Report Signed Patient: ALEX ANDERSON MR#: [id number] : 1945 Acct:[id number] Age/Sex: 78 / M ADM Date: 07/23/24 Loc: CR Attending Dr: TEO AL Ordering Physician: Martita Garnica D.O. Date of Service: 07/23/24 Procedure(s): ITP Accession Number(s): [id number] cc: [facility] Test Date: 2024-07-23 Pat Name: ALEX ANDERSON Department: Room: - Gender: Male Sap Business Objects Developer: : 1945 Requested By: MARTITA GARNICA Order Number: [id number] Reading MD: MARTITA GARNICA Interpretive Statements Session Date: Electronically Signed On 07-25-2024 8:18:39 EST by MARTITA GARNICA Dictated By: Martita Garnica D.O. Signed By: 07/25/2418 07/25/24817 DD/ 1540 TD/TT: Calibration Laboratory Technician: MARSHAL MadisonITPOrdered By: Radiologist Radiology on 71-65-8766XXPJ Healthcare Work Phone: ITPon 11-11-4528Fpfpnisgu Study observation (narrative)MARSHAL HealthcareAmbulatory Visit Summaryon 94-11-8389Fmrlhkuanm Visit SummaryAmbulatory Visit Summary ALEX ANDERSON :1945 [...] to do next Scheduled Follow-Up Appointments 2024 11:20 AM EDT With: HETAHER OMALLEY PA-C Where: [facility] [address] [place] [address]- Friday 2:00 PM EDT With: Katia SAMUELS MD Where: [facility] [address] [place] [address]- Medications What How Much When Instructions New cephalexin (Keflex 250 mg Cap) 1 Capsules By Mouth Every day Refills: 1 Pickup at [facility]/pharmacy #[id number] Unchanged albuterol (Albuterol (Eqv-ProAir HFA) 90 mcg/ [...] physician if questions or concerns Pharmacy Information [facility]/pharmacy #[id number]: [address] [place], [place] [id number] [phone] What How Much When Comments Stop Taking [...] e-mail asking about yo (more content not included)...[facility] HospitalUrology Office/Clinic Noteon 36-91-0644Thyrxbx Office/Clinic NoteUrology Office/Clinic Note Chief Complaint cath [...] E&M of Est. Patient Moderate 30-39 Min 48368 Influenza immunization status assessed 1030F Insertion of temp indwelling bladder cath (zapien) simple 57958 Medication list documented in medical record 1159F [...] stop the suppressive abx. 3. 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 Patient Moderate 30-39 Min 34676 4. Bladder cancer (C67.9: Malignant neoplasm of bladder, unspecified) Original TURBT/extraction of 2 bladder calculi 09/12/22 - Noninvasive papillary urothelial carcinoma, low grade. Invasion is not recognized. A small fragment of detrusor muscle is present in the specimen. Last cysto 04/06/24. Next cysto 10/05/24. Orders: cephalexin, 250 mg = 1 cap(s), Oral, Daily, # 30 cap(s), Refills(s) 1, Pharmacy: [facility]/pharmacy #[id number], 187, cm, 07/15/24 10:46:00 EST, Height/Length Dosing, 93, kg, 07/15/24 10:46:00 EST, Weight Dosing sterile water, See Instructions, 500 mL, Refill(s) 5, Irrigate zapien catheter as needed with 60 cc sterile water, [facility]/pharmacy #[id number], 187, cm, 04/06/24 11:21:00 EST, Height/Length Dosing, 93, kg, 04/06/24 11:21:00 EST, Weight Dosing Follow-up With When Contact Information JOSSELIN BARR, HEATHER Luu, URL In 1 month [address] [place] [address] Additional Instructions: Patient Education Bladder [...] 1 cap(s), Oral, (more content not included)...Normal [facility] CenterComment on above:Result Comment: Electronically Signed By: JOSSELIN BARR, HEATHER Luu\.br\Date and Time Signed: 07/15/2513:06 ESTALL THYROID STIM HORMONEon 17-98-5915Bjvgxltahasnmf and review of laboratory results AbnormalNOSaint John's HospitalTS Qn0.039 m[IU]/LLowNOSaint John's HospitalCLINISYNCNSaint Luke's North Hospital–SmithvilleOH PROTHROMBIN TIME INR W/O COUMon 82-31-1816Gfqgqzpcuhebmx and review of laboratory resultsAbnormalHermann Area District HospitalPT Coag (PPP) [Time]61.5 s Critically highNOVT HealthcareComment on above:RESULTS CALLED TO [facility] BY Vidya Valentine at 1126 TBH INR7.04Critically highNOVT HealthcareComment on above:RESULTS CALLED TO [facility] BY Vidya Valentine at 1127 DESIRED INR: 2.0-3.0 CONDITIONS NOT LISTED BELOW 2.5-3.5 FOR PROSTHETIC HEART VALVE REPLACEMENT 2.5-3.5 RECURRENT THROMBOSIS CLINISYNCNOMS HealthcareITPon 97-36-2554[address] [address] Cardiac Rehab Report Signed Patient: ALEX ANDERSON MR#: [id number] : 1945 Acct:[id number] Age/Sex: 78 / M ADM Date: 06/25/24 Loc: CR Attending Dr: TEO AL Ordering Physician: Martita Garnica D.O. Date of Service: 06/25/24 Procedure(s): ITP Accession Number(s): [id number] cc: [facility] Test Date: 2024-06-25 Pat Name: ALEX ANDERSON Department: Room: Gender: M Sap Business Objects Developer: : Requested By: Order Number: [id number] Silverio MD: MARTITA GARNICA Interpretive Statements Session Date: Electronically Signed On 06-25-2024 18:17:01 EST by MARTITA GARNICA Dictated By: Martita Garnica D.O. Signed By: 06/25/24181606/25/241816 DD/ 07 TD/TT: Calibration Laboratory Technician:KORINAHRadiologIker blackburn, - 06/25/2024 [place] [address] Cardiac Rehab Report Signed Patient: ALEX ANDERSON MR#: [id number] : 1945 Acct:[id number] Age/Sex: 78 / M ADM Date: 06/25/24 Loc: CR Attending Dr: TEO LA Ordering Physician: Martita Garnica D.O. Date of Service: 06/25/24 Procedure(s): ITP Accession Number(s): [id number] cc: [facility] Test Date: 2024-06-25 Pat Name: ALEX ANDERSON Department: Room: Gender: M Sap Business Objects Developer: : Requested By: Order Number: [id number] Silverio MD: MARTITA GARNICA Interpretive Statements Session Date: Electronically Signed On 06-25-2024 18:17:01 EST by MARTITA GARNICA Dictated By: Martita Garnica D.O. Signed By: 06/25/24181606/25/241816 DD/ 07 TD/TT: Calibration Laboratory Technician: MARSHAL HealthcareRadiology Study observation (narrative)NOMS HealthcareITPOrdered By: Radiologist Radiology on 88-50-3427[facility] Work Phone: Urology Office/Clinic Noteon 73-28-5287Bmxwdiq Office/Clinic NoteUrology Office/Clinic Note HPI Staff 4 wk cath change. History of Present Illness I have reviewed and verified the staff HPI to be accurate for this encounter. Portions of this record may have been created with voice recognition artificial intelligence software, specifically [employer], [place] and or Lucky Pai. Substitutions may have occurred due to the inherent limitations of voice recognition and artificial intelligence software. Physical Exam General: Well developed, well nourished, in no acute distress. Here w/ today who does assist in providing some of his history. Assessment/Plan PRW pt 1. Gross hematuria (R31.0: Gross hematuria) [facility] 04/28/2024 with complaints of a [...] virus vaccine, inactivated 03/26/2023 Recorded SARS-CoV-2 (COVID-19) mRNAMUL.ORD![id number] 03/29/2022 Recorded influenza virus vaccine, inactivated 03/16/2022 Recorded influenza virus vaccine, inactivated 03/06/2022 Recorded SARSCoV2 mRNA (more content not included)...[facility] Comment on above:Result Comment: Electronically Signed By: TC Boles APRN, Blanca Hadley\.br\Date and Time Signed: 06/07/24 10:43 ESTAmbulatory Visit Summaryon 29-43-6735Jnkjerczqw Visit SummaryAmbulatory Visit Summary ALEX ANDERSON :1945 [...] HEATHER OMALLEY PA-C Where: [facility] [address] [place] [address] [place] [address]- Friday 2:00 PM EDT With: Katia SAMUELS MD Where: [facility] [address] [place] [address]- Medications What How Much When Instructions Unchanged [...] you for choosing us for your care. [facility] HospitalITPon 60-91-1781P[address] [place] [address] Cardiac Rehab Report Signed Patient: ALEX ANDERSON MR#: [id number] : 1945 Acct:[id number] Age/Sex: 78 / M ADM Date: 05/25/24 Loc: CR Attending Dr: TEO AL Ordering Physician: Martita Garnica D.O. Date of Service: 05/25/24 Procedure(s): ITP Accession Number(s): [id number] cc: [facility] Test Date: 2024-05-25 Pat Name: ALEX ANDERSON Department: Room: - Gender: Male Sap Business Objects Developer: : 1945 Requested By: MARTITA GARNICA Order Number: [id number] Reading MD: MARTITA GARNICA Interpretive Statements Session Date: Electronically Signed On 05-26-2024 8:06:21 EST by MARTITA GARNICA Dictated By: Martita Garnica D.O. Signed By: 05/26/24 0805/26/24 08 DD/ 0754 TD/TT: Calibration Laboratory Technician:ALEMadiologbere, Radiologist, - 05/26/2024 [place] [address] Cardiac Rehab Report Signed Patient: ALEX ANDERSON MR#: [id number] : 1945 Acct:[id number] Age/Sex: 78 / M ADM Date: 05/25/24 Loc: CR Attending Dr: TEO AL Ordering Physician: Martita Garnica D.O. Date of Service: 05/25/24 Procedure(s): ITP Accession Number(s): [id number] cc: [facility] Test Date: 2024-05-25 Pat Name: ALEX ANDERSON Department: Room: - Gender: Male Sap Business Objects Developer: : 1945 Requested By: MARTITA GARNICA Order Number: [id number] Silverio MD: MARTITA GARNICA Interpretive Statements Session Date: Electronically Signed On 05-26-2024 8:06:21 EST by MARTITA GARNICA Dictated By: Martita Garnica D.O. Signed By: 05/26/24 0806 05/26/24 0806 DD/ 075 TD/TT: Calibration Laboratory Technician: MARSHAL MadisonITPOrdered By: Radiologist Radiology on 67-58-5870[facility] Work Phone: ITPon 39-41-0552Ggdazfwak Study observation (narrative)MARSHAL MadisonAlanine Aminotransferaseon 99-31-3670XUO [Catalytic activity/Vol]12 U/LNormal7The [facility] Physician GroupComment on above: Performed By: #### PTT, PT #### [facility] [address] [place] [address] USAAlanine aminotransferase [Enzymatic activity/volume] in Serum or PlasmaOrdered By: Teo Al on 16-81-1921PCH [Catalytic activity/Vol]Alanine aminotransferase [Enzymatic activity/volume] in Serum or Plasma7Salem City HospitalAspartate Amino Transferaseon 75-08-3209MSB [Catalytic activity/Vol]13 U/QVyoewd38-56Qre [facility] Physician GroupComment on above:Performed By: #### PTT, PT #### [facility] [address] [place] [id number] USAAspartate aminotransferase [Enzymatic activity/volume] in Serum or PlasmaOrdered By: Teo Al on 41-56-8755XBH [Catalytic activity/Vol]Aspartate aminotransferase [Enzymatic activity/volume] in Serum or Wgggpl22-15DbojxucqwSalem City HospitalBasic Metabolic Panelon 05-21-2024 Anion gap [Moles/Vol]14.7 mmol/LNormal6.0-15.0The [facility] Comment on above:Performed By: #### PTT, PT #### [facility] [address] [place] [address] USACalcium [Mass/Vol]9.1 mg/dLNormal8.6-10.3The [facility] Hospital Physician GroupComment on above:Performed By: #### PTT, PT #### [facility] [address] [place] [address] USAChloride [Moles/Vol]105 mmol/EAkmqig16-327Cpc [facility] Physician GroupComment on above:Performed By: #### PTT, PT #### [facility] [address] [place] [address] USACO2 [Moles/Vol]27.8 mmol/EXsejtx93.0-31.0The [facility] Hospital Physician GroupComment on above:Performed By: #### PTT, PT #### [facility] [address] [place] [address] USACreatinine [Mass/Vol]2.20 mg/dLHigh0.70-1.30The [facility] Hospital Physician GroupComment on above:Performed By: #### PTT, PT #### [facility] [address] [place] [address] USAEstimated GFR29.538 mL/MinNormalThe [facility] Hospital Physician GroupComment on above:Performed By: #### PTT, PT #### [facility] [address] [place] [address] USAGlucose [Mass/Vol]124 mg/mRBwgl07-842Dmp [facility] Physician GroupComment on above:Result Comment: Random Glucose Reference Range is dependent on time and content of last meal. Glucose of more than 200 mg/dL in a nonstressed, ambulatory subject supports the diagnosis of Diabetes Mellitus. ADA recommended reference rangePerformed By: #### PTT, PT #### [facility] [address] [place] [address] USAPotassium [Moles/Vol]4.5 mmol/LNormal3.5-5.1The [facility] Hospital Physician GroupComment on above:Performed By: #### PTT, PT #### [facility] [address] [place] [address] USASodium [Moles/Vol]143 mmol/KRkxrbu874-120Hcw [facility] Physician GroupComment on above:Performed By: #### PTT, PT #### [facility] [address] [place] [address] USAUrea nitrogen [Mass/Vol]34 mg/dLHigh7-25The [facility] Hospital Physician GroupComment on above:Performed By: #### PTT, PT #### [facility] [address] [place] [address] USABasophils Auto (Bld) [#/Vol]Ordered By: Teo Al on 22-99-1510Ltnlisito (Bld) [#/Vol]Automated basophil count0.0-0.2FMedina HospitalBasophils/100 WBC Auto (Bld)Ordered By: Teo Al on 93-55-0641Robtkuwxs/100 WBC (Bld)Automated basophil %.Sal[facility] City HospitalCalcium [Mass/volume] in Serum or PlasmaOrdered By: Teo Al on 86-95-7751Ojeqfgb [Mass/Vol]Calcium [Mass/volume] in Serum or Plasma8.6-10.3 [facility] City HospitalCarbon dioxide, total [Moles/volume] in Serum or PlasmaOrdered By: Teo Al on 37-46-4402IY5 [Moles/Vol]Carbon dioxide, total [Moles/volume] in Serum or Leuuhh88.0-31.0[facility] City HospitalChloride [Moles/volume] in Serum or PlasmaOrdered By: Teo Al on 22-75-9872Irywouhz [Moles/Vol]Chloride [Moles/volume] in Serum or Mgoypv33-251 [facility] HospitalCholesterol [Mass/volume] in Serum or Plasma Ordered By: Teo Al on 29-25-3799Boybxqgagyo [Mass/Vol]Cholesterol [Mass/volume] in Serum or VbienxLma180-375HdlfpzrkySalem City Hospital Comment on above:Chol less than 200 mg/dl low riskChol 201-239 mg/dl borderline riskChol 240 mg/dl and greater high riskCholesterol in HDL [Mass/volume] in Serum or PlasmaOrdered By: Teo Al on 74-31-4971Sxgaiwcjvpq in HDL [Mass/Vol]Serum or plasma high density lipoprotein (HDL) cholesterol measurement 23-92Sal[facility] City HospitalComment on above:HDL CHOL ATP-III CLASSIFICATION Cardiovascular RiskHDL > or equal to 60 mg/dL LOWHDL < 40 mg/dL HIGHCholesterol in LDL Calc [Mass/Vol]Ordered By: Teo Al on 05-21-2024 Cholesterol in LDL [Mass/Vol]Cholesterol in LDL [Mass/volume] in Serum or Plasma by calculation0-100Sal[facility] City HospitalComment on above:LDL ATP III CLASSIFICATIONLDL less than 100 mg/dL OptimalLDL 100-129 mg/dL Near or above gfamvvgMZJ502-910 mg/dL Borderline highLDL 160-189 mg/dL HighLDL greater than 189 mg/dL Very highCholesterol in VLDL Calc [Mass/Vol]Ordered By: Teo Al on 09-83-1970Sbkrzffyqrh in VLDL [Mass/Vol]Cholesterol in VLDL [Mass/volume] in Serum or Plasma by calculationSalem City HospitalComplete Blood Count Auto Diffon 65-71-5109Xrwprvusm (Bld) [#/Vol]0.1 10*3/uLNormal0.0-0.2The [facility] Hospital Physician GroupComment on above:Result Comment: PERFORMED BY: [place] [address] PATHOLOGIST EMERGENCY WORKER ED CRUZ M.D.Performed By: #### PTT, PT #### [place] [address] USABasophils/100 WBC (Bld)1.0 %Normal.The [facility] Hospital Physician GroupComment on above:Performed By: #### PTT, PT #### [facility] [address] [place] [address] USAEosinophils (Bld) [#/Vol]0.2 10*3/uLNormal0.0-0.45The [facility] Hospital Physician GroupComment on above:Performed By: #### PTT, PT #### [place] [address] USAEosinophils/100 WBC (Bld)3.3 %Normal.The [facility] Hospital Physician GroupComment on above:Performed By: #### PTT, PT #### [place] [id number] USAErythrocyte distribution width (RBC) [Ratio]18.1 %High 12.0-14.8The [facility] Hospital Physician GroupComment on above:Performed By: #### PTT, PT #### [place] [address] USAHematocrit (Bld) [Volume fraction]30.3 %Low38.8-50.0The [facility] Hospital Physician GroupComment on above:Performed By: #### PTT, PT #### [place] [address] USAHemoglobin (Bld) [Mass/Vol]9.5 g/dLLow13.0-17.0The [facility] Hospital Physician GroupComment on above:Performed By: #### PTT, PT #### [place] [address] USALymphocytes (Bld) [#/Vol]1.3 10*3/uLNormal1.00-4.8The [facility] Hospital Physician GroupComment on above:Performed By: #### PTT, PT #### [place] [address] USALymphocytes/100 WBC (Bld)22.2 %Normal.The [facility] Hospital Physician GroupComment on above:Performed By: #### PTT, PT #### [place] [address] USAMCH (RBC) [Entitic mass]23.3 pgLow27.5-35.2The [facility] Hospital Physician GroupComment on above:Performed By: #### PTT, PT #### [place] [address] USAMCV (RBC) [Entitic vol]74.4 fLLow83.5-101The [facility] Hospital Physician GroupComment on above:Performed By: #### PTT, PT #### [place] [address] USAMean Corpuscular HGB Conc31.3 g/dLLow32.5-35.6The [facility] Hospital Physician GroupComment on above:Performed By: #### PTT, PT #### [facility] [address] [place] [address] USAMonocytes (Bld) [#/Vol]0.6 10*3/uLNormal0.0-0.8The [facility] Hospital Physician GroupComment on above:Performed By: #### PTT, PT #### [facility] [address] [place] [address] USAMonocytes/100 WBC (Bld)10.2 %Normal.The [facility] Hospital Physician GroupComment on above:Performed By: #### PTT, PT #### [facility] [address] [place] [address] USANeutrophils (Bld) [#/Vol]3.8 10*3/uLNormal1.8-7.7The [facility] Hospital Physician GroupComment on above:Performed By: #### PTT, PT #### [facility] [address] [place] [address] USANeutrophils/100 WBC (Bld)63.3 %Normal.The [facility] Hospital Physician GroupComment on above:Performed By: #### PTT, PT #### [facility] [address] [place] [address] USANRBC%0.1 /100{WBC}Normal0-0.5The [facility] Comment on above:Performed By: #### PTT, PT #### [facility] [address] [place] [address] USAPlatelet mean volume (Bld) [Entitic vol]8.1 fLNormal 6.6-10.1The [facility] Hospital Physician GroupComment on above:Performed By: #### PTT, PT #### [facility] [address] [place] [address] USAPlatelets (Bld) [#/Vol]315 10*3/eYTnpdha221-212Glh [facility] Physician GroupComment on above:Performed By: #### PTT, PT #### [facility] [address] [place] [address] USARBC (Bld) [#/Vol]4.07 10*6/uLNormal3.90-5.60The [facility] Hospital Physician GroupComment on above:Performed By: #### PTT, PT #### [facility] [address] [place] [address] USAWBC (Bld) [#/Vol]6.1 10*3/uLNormal4.1-10.5The [facility] Physician GroupComment on above:Performed By: #### PTT, PT #### [facility] [address] [place] [address] USACreatinine [Mass/volume] in Serum or PlasmaOrdered By: Teo Al on 13-90-2749Zmhkqjnlrg [Mass/Vol]Creatinine [Mass/volume] in Serum or PlasmaHigh0.70-1.30Sal[facility] City HospitalECG 12 Leadon 27-66-3742BON revealed normal sinus rhythm, IVCD, diffuse repolarization abnormalities, septal myocardial infarction of undetermined age, abnormal ECGCPACSMiami Valley Hospital Work Phone: Eosinophils Auto (Bld) [#/Vol]Ordered By: Teo Al on 52-50-3014Qdaqlmilkpu (Bld) [#/Vol]Automated eosinophil count0.0-0.45 [facility] HospitalEosinophils/100 WBC Auto (Bld)Ordered By: Teo Al on 05-12-5450Uiczutdsokn/100 WBC (Bld)Automated eosinophil %. [facility] City HospitalErythrocyte distribution width Auto (RBC) [Ratio]Ordered By: Teo Al on 90-29-0597Vdoclzrfhmw distribution width (RBC) [Ratio]Erythrocyte distribution width [Ratio] by Automated countHigh 12.0-14.8[facility] HospitalGlucose [Mass/volume] in Serum or PlasmaOrdered By: Teo Al on 29-15-4871Auuzhlj [Mass/Vol]Glucose [Mass/volume] in Serum or AasxscTewk93-448FoojhlsvzSalem City Hospital Comment on above:ADA recommended reference rangeRandom Glucose Reference Range is dependent on time and content of last meal. Glucose of more than 200 mg/dL in a nonstressed, ambulatory subject supports the diagnosisof Diabetes Mellitus. Hematocrit Auto (Bld) [Volume fraction]Ordered By: Teo Al on 05-21-2024 Hematocrit (Bld) [Volume fraction]Hematocrit [Volume Fraction] of Blood by Automated isnkeBap70.8-50.0[facility] HospitalHemoglobin [Mass/volume] in BloodOrdered By: Teo Al on 91-47-5680Hqhmkyycro (Bld) [Mass/Vol]Hemoglobin [Mass/volume] in IgvleQyh63.0-17.0[facility] City HospitalLeukocytes [#/volume] corrected for nucleated erythrocytes in Blood by Automated counOrdered By: Teo Al on 85-44-3775MOE corrected for nucl RBC Auto (Bld) [#/Vol]Leukocytes [#/volume] corrected for nucleated erythrocytes in Blood by Automated coun4.1-10.5FMedina Hospital Lipid Panelon 51-14-7868Bfjcjonbefh [Mass/Vol]89 mg/tDQic550-347Hkb [facility] Physician GroupComment on above:Result Comment: Chol less than 200 mg/dl low risk Chol 201-239 mg/dl borderline risk Chol 240 mg/dl and greater high riskPerformed By: #### PTT, PT #### [facility] [address] [place] [address] USACholesterol in HDL [Mass/Vol]41 mg/rECfzyro87-33Sxy [facility] Physician GroupComment on above:Result Comment: HDL CHOL ATP-III CLASSIFICATION Cardiovascular Risk HDL > or equal to 60 mg/dL LOW HDL < 40 mg/dL HIGHPerformed By: #### PTT, PT #### [facility] [address] [place] [address] USACholesterol.total/Cholesterol in HDL [Mass ratio]2.2 {ratio}Normal<5.0The [facility] Hospital Physician GroupComment on above:Performed By: #### PTT, PT #### [facility] [address] [place] [address] USALDL Cholesterol,Hbtdgvvbmk09 mg/dLNormal0-100The [facility] Hospital Physician GroupComment on above:Result Comment: LDL ATP III CLASSIFICATION LDL less than 100 mg/dL Optimal LDL 100-129 mg/dL Near or above optimal LDL 130-159 mg/dL Borderline high LDL 160-189 mg/dL High LDL greater than 189 mg/dL Very highPerformed By: #### PTT, PT #### [facility] [address] [place] [address] USATriglyceride w/Vvdewe64 mg/dLNormal0-149The [facility] Hospital Physician GroupComment on above:Result Comment: TRIG ATP III CLASSIFICATION TRIG less than 150 mg/dL Normal TRIG 150-199 mg/dL Borderline high TRIG 200-500 mg/dL High TRIG greater than 500 mg/dL Very high Standard traceable to the Center for Disease Conrtrol and Prevention (CDC) test method.Performed By: #### PTT, PT #### [facility] [address] [place] [address] USAVLDL ENQKZFKUSMT29 mg/dLNormalThe [facility] Physician GroupComment on above:Performed By: #### PTT, PT #### [facility] [address] [place] [address] USALymphocytes Auto (Bld) [#/Vol]Ordered By: Teo Al on 30-34-6369Qoxrutvwenv (Bld) [#/Vol]Lymphocytes [#/volume] in Blood by Automated count1.00-4.8Sal[facility] City HospitalLymphocytes/100 WBC Auto (Bld)Ordered By: Teo Al on 42-53-4826Pjnarfhlzrg/100 WBC (Bld) Lymphocytes/100 leukocytes in Blood by Automated count.[facility] HospitalH Auto (RBC) [Entitic mass]Ordered By: Teo Al on 21-81-9208LWG (RBC) [Entitic mass]MCH [Entitic mass] by Automated countLow 27.5-35.2FAdams County Regional Medical CenterHC Auto (RBC) [Mass/Vol]Ordered By: Teo Al on 28-43-1040ECQP (RBC) [Mass/Vol]MCHC [Mass/volume] by Automated emhwxCwo88.5-35.6FAdams County Regional Medical CenterV Auto (RBC) [Entitic vol] Ordered By: Teo Al on 64-20-9299LAS (RBC) [Entitic vol]MCV [Entitic volume] by Automated mprytKku68.5-101Sal[facility] City HospitalMonocytes Auto (Bld) [#/Vol]Ordered By: Teo Al on 64-69-9588Sxpzvunzs (Bld) [#/Vol]Automated blood monocyte count0.0-0.8[facility] Monocytes/100 WBC Auto (Bld)Ordered By: Teo Al on 05-21-2024 Monocytes/100 WBC (Bld)Automated monocyte %.[facility] Neutrophils Auto (Bld) [#/Vol]Ordered By: Teo Al on 05-21-2024 Neutrophils (Bld) [#/Vol]Neutrophils [#/volume] in Blood by Automated count 1.8-7.7FMedina HospitalNeutrophils/100 WBC Auto (Bld)Ordered By: Teo Al on 46-29-5962Ypwlqtbnizp/100 WBC (Bld)Automated neutrophil %. [facility] HospitalNo Panel InformationOrdered By: Teo Al on 90-12-6672Krmjdtste GFR (CKD-EPI)29.538 mL/MinSalem City HospitalPharmacy Creatinine Clearance (ChemN/[facility] Nucleated erythrocytes [Presence] in Blood by Automated countOrdered By: Teo Al on 00-58-6656Utuytzels RBC Auto Ql (Bld)Nucleated erythrocytes [Presence] in Blood by Automated count0-0.5FMedina Hospital Platelet mean volume Auto (Bld) [Entitic vol]Ordered By: Teo Al on 47-93-5663Nbdhczbg mean volume (Bld) [Entitic vol]Platelet mean volume [Entitic volume] in Blood by Automated count6.6-10.1FMedina Hospital Platelets Auto (Bld) [#/Vol]Ordered By: Teo Al on 63-29-0637Nxhcmmsyr (Bld) [#/Vol]Platelets [#/volume] in Blood by Automated nuosp779-872SsesqjhcdSalem City HospitalPotassium [Moles/volume] in Serum or PlasmaOrdered By: Teo Al on 24-35-6479Mgezthpko [Moles/Vol]Potassium [Moles/volume] in Serum or Plasma3.5-5.1FMedina HospitalRBC Auto (Bld) [#/Vol] Ordered By: Teo Al on 41-71-5016YXI (Bld) [#/Vol]Erythrocytes [#/volume] in Blood by Automated count3.90-5.60[facility] - Youngstownerum or plasma anion gap determinationOrdered By: Teo Al on 54-28-0232Zwlek gap [Moles/Vol]Serum or plasma anion gap determination6.0-15.0[facility] - Youngstownerum or plasma total cholesterol/high density lipoprotein (HDL) cholesterol mass ratOrdered By: Teo Al on 05-21-2024 Cholesterol.total/Cholesterol in HDL [Mass ratio]Serum or plasma total cholesterol/high density lipoprotein (HDL) cholesterol mass rat<5.0[facility] - Youngstownodium [Moles/volume] in Serum or PlasmaOrdered By: Teo Al on 36-74-0767Eopqco [Moles/Vol]Sodium [Moles/volume] in Serum or Wapqgg424-137ZojdtelsySalem City HospitalThyroid Stimulating Hormoneon 10-52-4992LTZ Qn0.11 m[IU]/LLow0.45-5.33The [facility] Hospital Physician GroupComment on above:Result Comment: PERFORMED BY: [place] [address] PATHOLOGIST EMERGENCY WORKER ED CRUZ M.D.Performed By: #### PTT, PT #### [place] [address] USAThyrotropin [Units/volume] in Serum or PlasmaOrdered By: Teo Al on 61-53-1965EJD QnThyrotropin [Units/volume] in Serum or Plasma Low0.45-5.33Salem City HospitalTriglyceride [Mass/volume] in Serum or PlasmaOrdered By: Teo Al on 93-55-9803Mmnsildcvxuw [Mass/Vol] Triglyceride [Mass/volume] in Serum or Plasma0-149Salem City HospitalComment on above:TRIG ATP III CLASSIFICATIONTRIG less than 150 mg/dL NormalTRIG 150-199 mg/dL Borderline highTRIG 200-500 mg/dL High TRIG greater than 500 mg/dL Very highStandard traceable to the Center for Disease Conrtrol and Prevention (CDC) test method.Urea nitrogen [Mass/volume] in Serum or Plasma Ordered By: Teo Al on 39-74-7041Vfly nitrogen [Mass/Vol]Urea nitrogen [Mass/volume] in Serum or Plasma61 Moore StreetWBC Auto (Bld) [#/Vol]Ordered By: Teo Al on 58-37-1890IVH (Bld) [#/Vol] Leukocytes [#/volume] in Blood by Automated count4.1-10.5FMedina HospitalITPon 77-28-2439[place] [address] Cardiac Rehab Report Signed Patient: ALEX ANDERSON MR#: [id number] : 1945 Acct:[id number] Age/Sex: 78 / M ADM Date: 04/26/24 Loc: CR Attending Dr: TEO AL Ordering Physician: Martita Garnica D.O. Date of Service: 04/26/24 Procedure(s): ITP Accession Number(s): [id number] cc: [facility] Test Date: 2024-04-26 Pat Name: ALEX ANDERSON Department: Room: - Gender: Male Sap Business Objects Developer: : 1945 Requested By: MARTITA GARNICA Order Number: [id number] Reading MD: MARTITA GARNICA Interpretive Statements Session Date: Electronically Signed On 04-27-2024 20:20:06 EST by MARTITA GARNICA Dictated By: Martita Garnica D.O. Signed By: 04/27/24201904/27/242019 DD/ 1219 TD/TT: Calibration Laboratory Technician:ALEMadiology, Radiologist, - 04/27/2024 [place] [address] Cardiac Rehab Report Signed Patient: ALEX ANDERSON MR#: [id number] : 1945 Acct:[id number] Age/Sex: 78 / M ADM Date: 04/26/24 Loc: CR Attending Dr: TEO AL Ordering Physician: Martita Garinca D.O. Date of Service: 04/26/24 Procedure(s): ITP Accession Number(s): [id number] cc: [facility] Test Date: 2024-04-26 Pat Name: ALEX ANDERSON Department: Room: - Gender: Male Sap Business Objects Developer: : 1945 Requested By: MARTITA GARNICA Order Number: [id number] Reading MD: MARTITA GARNICA Interpretive Statements Session Date: Electronically Signed On 04-27-2024 20:20:06 EST by MARTITA GARNICA Dictated By: Martita Garnica D.O. Signed By: 04/27/24201904/27/242019 DD/ 18 TD/TT: Calibration Laboratory Technician: MARSHAL MadisonITPOrdered By: Radiologist Radiology on 15-99-8648VFYX [employer] Work Phone: ITPon 95-19-2940Jpixxrale Study observation (narrative)[facility] Area District HospitalUroVysion Fish and Urine Cyto ([facility])on 04-12-2024 UVFISH & UCDiagnosis InfoInvalid Interpretation CodeFirelands Regional Medical Center Comment on above:Result Comment: A:Urine,Bladder Wash:Bladder Wash Diagnosis [...] with cytology and cystoscopy results. * CPT: 05002, 08439. Microscopic Notes - Microscopic Notes - Abnormal cells 9p21 deletions: Abnormal cells aneploid events: Total cells analyzed: 25 Hematuria: Gross Description Site ID:A color Colorless fixative Alcohol Received 90 mls of slightly cloudy colorless fluid with the patient's name and, Bladder Wash on the vial. Electronically signed by : on: 04/12/2024 16:53:27Performed By: #### [id number] #### [facility] [address] [place], [place] [address]Widteclhnb Visit Summaryon 69-05-7343Qithleiiht Visit Summary Ambulatory Visit Summary ALEX ANDERSON [...] Appointments Follow Up with ARLENE CASILLAS, Katia Macias, URRomina When: Where: [facility] [address] [place] [address]- Medications What How Much When Instructions Unchanged [...] care provider may (more content not included)...Normal [facility] 02-31-7417YxfeienofUivnhksxe From: Dana Rivas To: UZMA - Marlena Samuels; Sent: 02/20/2024 14:44:26 EDT Show up: 07/24/2024 14:44:00 EST Subject: Cysto/FISH/cytol, cath chng Due Date/Time: 08/16/2024 14:44:00 EDT Reminder/Recall Patient is due in September 2024 for 6 month cysto/fish/cytol, cath change (bt ck) Patient sched 10/05/24NoTrinity Health System West CampusUroVysion Fish and Urine Cyto ([facility])on 48-52-6650LZDB Method of ExtractionBladder WashPremier Health Miami Valley HospitalComment on above:Performed By: #### [id number] #### [facility] [address] [place], [place] [address]LSNE Number of Csgk3Jptunjn Interpretation CodeFirelands Regional Medical CenterComment on above:Performed By: #### [id number] #### [facility] [address] [place], [place] [address]NIQY SpecimenBladder WashPremier Health Miami Valley Hospital Comment on above:Performed By: #### [id number] #### [facility] [address] [place], [place] [address]OXIU Type of ServiceTechnical OnlyPremier Health Miami Valley HospitalComment on above:Performed By: #### [id number] #### [facility] [address] [place], [place] [address]Vddeowi Office/Clinic Noteon 00-88-3148Cbpfsfu Office/Clinic NoteUrology Office/Clinic Note Chief Complaint cysto [...] going to start monthly zapien changes. [1] [facility] ER on 09/15/22 due to catheter clogged. Pt was diagnosed w/ UTI and treated w/ Cipro 500 mg BIDfor x 7 days. Attempted urocuff, pt was unable to void, PVR 348 cc, cath placed 10/04/22. [2] Pt has been in the ER multiple times due to issues with Zapien. Most recently, pt presented to [facility] ER 09/29/23 and 09/30/23 due to catheter not draining. [3] Cath changed IO today, see procedure section. 3. BPH with urinary obstruction (N40.1: Benign prostatic hyperplasia with lower urinary tract symptoms) S/p Rezum 06/10/23. Not taking any BPH meds. Maintained with chronic zapien, see #2. Follow-up With When Contact Information ARLENE CASILLAS, Katia Macias, URL [facility] [address] [place] [address]- Additional Instructions: 6 mos surveillance cysto/bt ck/FISH/cytol Patient Education Indwelling Urinary Catheter Insertion, Care After Cancer Screening for Males I, Citlalli Rushing, personally scribed for Dr. Samuels on 04/06/2024 11:35:18. . Documentation recorded by the scribe, Citlalli Rushing, accurately reflects the services(s) I performed and decisions made by me. Authenticated by Dr. Samuels on 04/06/2024 11:36:29. Problem List/Past Medical History (more content not included)...Prem[facility] Miami Valley HospitalComment on above: Result Comment: Electronically Signed By: Katia SAMUELS MD R\.br\Date and Time Signed: 04/06/24 11:36 EST\.br\Electronically Co-Signed By: Citlalli Rushing P\.br\Date and Time Co-Signed: 04/06/24 11:35 ESTITPon 08-91-2401[place] [address] Cardiac Rehab Report Signed Patient: ALEX ANDERSON MR#: [id number] : 1945 Acct:[id number] Age/Sex: 78 / M ADM Date: 03/31/24 Loc: CR Attending Dr: TEO AL Ordering Physician: Martita Garnica D.O. Date of Service: 03/31/24 Procedure(s): ITP Accession Number(s): [id number] cc: [facility] Test Date: 2024-03-31 Pat Name: ALEX ANDERSON Department: Room: - Gender: Male Sap Business Objects Developer: : 1945 Requested By: MARTITA GARNICA Order Number: [id number] Reading MD: MARTITA GARNICA Interpretive Statements Session Date: Electronically Signed On 03-31-2024 20:54:52 EST by MARTITA GARNICA Dictated By: Martita Garnica D.O. Signed By: 03/31/24205403/31/242054 DD/ 1239 TD/TT: Calibration Laboratory Technician:ALEMadiologbere, Radiologist, - 03/31/2024 [place] [address] Cardiac Rehab Report Signed Patient: ALEX ANDERSON MR#: [id number] : 1945 Acct:[id number] Age/Sex: 78 / M ADM Date: 03/31/24 Loc: CR Attending Dr: TEO AL Ordering Physician: Martita Garnica D.O. Date of Service: 03/31/24 Procedure(s): ITP Accession Number(s): [id number] cc: [facility] Test Date: 2024-03-31 Pat Name: ALEX ANDERSON Department: Room: - Gender: Male Sap Business Objects Developer: : 1945 Requested By: MARTITA GARNICA Order Number: [id number] Silverio MD: MARTITA GARNICA Interpretive Statements Session Date: Electronically Signed On 03-31-2024 20:54:52 EST by MARTITA GARNICA Dictated By: Martita Garnica D.O. Signed By: 03/31/24205403/31/242054 DD/ 123 TD/TT: Calibration Laboratory Technician: MARSHAL HealthcareRadiology Study observation (narrative)NOMS HealthcareITPOrdered By: Radiologist Radiology on 38-61-0544BLIB [employer] Work Phone: ITPon 39-27-4779[place] [address] Cardiac Rehab Report Signed Patient: ALEX ANDERSON MR#: [id number] : 1945 Acct:[id number] Age/Sex: 78 / M ADM Date: 03/24/24 Loc: CR Attending Dr: TEO AL Ordering Physician: Martita Garnica D.O. Date of Service: 03/24/24 Procedure(s): ITP Accession Number(s): [id number] cc: [facility] Test Date: 2024-03-24 Pat Name: ALEX ANDERSON Department: Room: - Gender: Male Sap Business Objects Developer: : 1945 Requested By: MARTITA GARNICA Order Number: [id number] Silverio MD: MARTITA GARNICA Interpretive Statements Session Date: Electronically Signed On 03-24-2024 23:29:20 EDT by MARTITA GARNICA Dictated By: Martita Garnica D.O. Signed By: 03/24/24232803/24/242328 DD/ 1146 TD/TT: Calibration Laboratory Technician:Iker Roque MD - 03/24/2024 [place] [address] Cardiac Rehab Report Signed Patient: ALEX ANDERSON MR#: [id number] : 1945 Acct:[id number] Age/Sex: 78 / M ADM Date: 03/24/24 Loc: CR Attending Dr: TEO AL Ordering Physician: Martita Garnica D.O. Date of Service: 03/24/24 Procedure(s): ITP Accession Number(s): [id number] cc: [facility] Test Date: 2024-03-24 Pat Name: ALEX ANDERSON Department: Room: - Gender: Male Sap Business Objects Developer: : 1945 Requested By: MARTITA GARNICA Order Number: [id number] Reading MD: MARTITA GARNICA Interpretive Statements Session Date: Electronically Signed On 03-24-2024 23:29:20 EDT by MARTITA GARNICA Dictated By: Martita Garnica D.O. Signed By: 03/24/24232803/24/242328 DD/ 1146 TD/TT: Calibration Laboratory Technician: MARSHAL HealthcareRadiology Study observation (narrative)MARSHAL HealthcareITPOrdered By: Radiologist Radiology on 26-96-5952K[facility] Work Phone: rt PULMONARY FUNCTION TESTon 98-71-5115[place] [address] Respiratory Report Signed Patient: ALEX ANDERSON MR#: [id number] : 1945 Acct:[id number] Age/Sex: 78 / M ADM Date: 03/23/24 Loc: CARD Attending Dr: TEO AL Ordering Physician: TEO AL Date of Service: 03/23/24 Procedure(s): RT pulmonary function test Accession Number(s): [id number] cc: [facility] Test Date: 2024-03-23 Pat Name: ALEX ANDERSON Department: Room: - Gender: Male Sap Business Objects Developer: Reymundo Alamo RRT : 1945 Requested By: 358 Order Number: [id number] Reading MD: Aayush Gallo Interpretive Statements Pulmonary [...] By: Aayush Gallo D.O. Signed By: 03/24/24 1752 DD/ 1259 TD/TT: Calibration Laboratory Technician:TBHRadiology, Radiologist, - 03/24/2024 [place] [address] Respiratory Report Signed Patient: ALEX ANDERSON MR#: [id number] : 1945 Acct:[id number] Age/Sex: 78 / M ADM Date: 03/23/24 Loc: CARD Attending Dr: TEO AL Ordering Physician: TEO AL Date of Service: 03/23/24 Procedure(s): RT pulmonary function test Accession Number(s): [id number] cc: [facility] Test Date: 2024-03-23 Pat Name: ALEX ANDERSON Department: Room: - Gender: Male Sap Business Objects Developer: Reymundo Alamo RRT : 1945 Requested By: 358 Order Number: [id number] Reading MD: Aayush Gallo Interpretive Statements Pulmonary [...] By: Aayush Gallo D.O. Signed By: 03/24/24 1756 DD/ 1259 TD/TT: Calibration Laboratory Technician: [facility]OSPITALAidee [facility] PULMONARY FUNCTION TESTOrdered By: Radiologist Radiology on 64-56-4869RWOGHermann Area District Hospital Work Phone: aLL HEMOGLOBINon 33-44-9402Omipodpibx (Bld) [Mass/Vol] 9.5 g/dLLow14.0 - 18.0 g/dLLAKEVIEW HOSPITAL HealthcareInterpretation and review of laboratory resultsAbnormalHermann Area District HospitalCLINISYNCNCass Medical CenterRT PULMONARY FUNCTION TESTon 07-60-3366Tkxkeesaa Study observation (narrative)[facility] No Panel InformationOrdered By: Rosalie Bailey on 73-72-0820Pwvet Strep (POC) Salem City HospitalXR chest 2V*on 40-76-2811RV chest 2V*[facility] [address] XRay Report Signed Patient: Alex Anderson MR#: [id number] : 1945 Acct:[id number] Age/Sex: 78 / M ADM Date: 03/08/24 Loc: XDUCLY Room: Type: [facility] Attending Dr: Rosalie Bailey APRN Copies to: [...] Corky Max M.D.03/08/2024 2:03 PM Dictation Location: [place] [address] Transcribed By: [facility] 03/08/24 1403 Dictated By: Corky Max II, MD 03/08/24 140 Signed By: 03/08/24 140[facility] Physician GroupSAN [facility] HEMOGLOBINon 03-04-2024 Hemoglobin (Bld) [Mass/Vol]10.0 g/dLLow14.0 - 18.0 g/dLHermann Area District Hospital Interpretation and review of laboratory resultsAbOhio Valley Surgical HospitalS [facility] 67-66-4916JszhhsrsyIuivurwks From: Dana Rivas To: [facility]St[facility]; Sent: 12/02/2023 11:09:10 EDT Show up: 01/25/2024 [...] was notified ok to keep cysto on 04/06/24.[facility] 12 Leadon 24-13-1221JDK revealed normal sinus rhythm, left axis deviation, 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, QT prolongation, IVCDCPACSMiami Valley Hospital Work Phone: bacteria [Presence] in Urine by AutomatedOrdered By: Rob Almazan on 96-57-2992Xnbbtcnf Auto Ql (U)Rare [HPF]None Seen Salem City HospitalBilirubin Test strip Ql (U)Ordered By: Rob Almazan on 17-36-8346Mdxdjfsvj Ql (U)NegativeNegativeSalem City HospitalColor of Urine by AutoOrdered By: Rob Almazan on 26-99-7806Soocp (U)YellowNormalYellowSalem City HospitalComment on above:Order Comment: Name Collection Type:: Zapien CatheterPerformed By: #### ADDONUAPLUS, CUU #### [facility] [address] [place], [place] [address] USADipstick and Microscopicon 67-88-0950Isghreme,UrineRare NormalNone SeenThe [facility] Physician GroupComment on above:Order Comment: Name Collection Type:: Zapien CatheterPerformed By: #### ADDONUAPLUS, CUU #### [facility] [address] [place] [id number] USABilirubin,UrineNegativeNormalNegativeAdventhealth Orlando Physician GroupComment on above:Order Comment: Name Collection Type:: Zapien CatheterPerformed By: #### ADDONUAPLUS, CUU #### [facility] [address] [place] [address] USAGlucose Ql (U)NormalNormalNormalThe [facility] Hospital Physician GroupComment on above:Order Comment: Name Collection Type:: Zapien Catheter Performed By: #### ADDONUAPLUS, CUU #### [facility] [address] [phone] USAHyaline Casts,UrineNoneNormal0-8The [facility] Hospital Physician GroupComment on above:Order Comment: Name Collection Type:: Zapien Catheter Performed By: #### ADDONUAPLUS, CUU #### [facility] [address] [place] [address] USAMucus,UrineRareNormalThe [facility] Hospital Physician GroupComment on above:Order Comment: Name Collection Type:: Zapien CatheterResult Comment: PERFORMED BY: [place] [address] PATHOLOGIST EMERGENCY WORKER OREN OWEN M.D.Performed By: #### ADDONUAPLUS, CUU #### [place] [address] USANitrite,UrineNegativeNormalNegativeAdventhealth Orlando Physician GroupComment on above:Order Comment: Name Collection Type:: Zapien Catheter Performed By: #### ADDONUAPLUS, CUU #### [place] [address] USAOccult Blood,Urine2+HighNegativeThe [facility]'S Hospital Physician GroupComment on above:Order Comment: Name Collection Type:: Zapien CatheterResult Comment: PERFORMED BY: [place] [address] PATHOLOGIST EMERGENCY WORKER OREN OWEN M.D.Performed By: #### ADDONUAPLUS, CUU #### [place] [address] USAProtein,UrineTraceHighNegativeAdventhealth Orlando Physician GroupComment on above:Order Comment: Name Collection Type:: Zapien Catheter Performed By: #### ADDONUAPLUS, CUU #### [place] [address] USARBC,Iwuca53-79Krre2-5Bgh [facility] Hospital Physician GroupComment on above:Order Comment: Name Collection Type:: Zapien CatheterPerformed By: #### ADDONUAPLUS, CUU #### [place] [address] USASpecificy [place],Urine1.700Zpjluq7.001-1.030The [facility] Hospital Physician GroupComment on above:Order Comment: Name Collection Type:: Zapien CatheterPerformed By: #### ADDONUAPLUS, CUU #### [place] [address] USAUrobilinogen,Urine2 mg/dLHighNormalThe [facility] Hospital Physician GroupComment on above:Order Comment: Name Collection Type:: Zapien Catheter Performed By: #### JESUSPLUS, CUU #### [facility] [address] [place], [place] [address] USAWBC CLUMP, UrineRareHighNone SeenAdventhealth Orlando Physician GroupComment on above:Order Comment: Name Collection Type:: Zapien Catheter Performed By: #### ADDMOEUAPLUS, CUU #### [facility] [address] [place] [address] USAWBC,Weqjw27-64Foms8-7Tdl [facility] Physician GroupComment on above:Order Comment: Name Collection Type:: Zapien CatheterPerformed By: #### ADDMOEUAPLUS, CUU #### [address] [address] USAECG 12 lead ECGon 35-91-7647XDD 12 lead ECGMARYMOUNT HOSPITAL [place] [address] [place] [address] Electrocardiograph Report Signed Patient: Alex Anderson MR#: [id number] : 1945 Acct:[id number] Age/Sex: 78 / M ADM Date: 01/16/24 Loc: Room: [address] [place] [address] Type: ADM IN Attending Dr: Nas Pruett [...] Acute Anteroseptal infarct Lateral injury pattern ACUTE [place] / STEMI Abnormal ECG When compared with ECG of 19-Jan-2024 07:09, Serial changes of Anteroseptal infarct present Confirmed by Misael Campbell ([id number]) on 01/23/2024 11:36:17 AM Referred By: Electronically Signed By: Misael Campbell Transcribed By: MUS Signed By Misael Campbell MD 01/23/24 [facility] Physician GroupEpithelial cells.squamous [#/area] in Urine sediment by Automated countOrdered By: Rob Almazan on 66-10-4156Faasjjhduk cells.squamous Auto (Urine sed) [#/Area]N/AFMedina HospitalErythrocytes [#/area] in Urine sediment by Automated countOrdered By: Rob Almazan on 96-18-5659IPW Auto (Urine sed) [#/Area] 20-49 [HPF]High0-4FMedina HospitalGlucose [Mass/volume] in Urine by Test stripOrdered By: Rob Almazan on 69-14-5846Kmyglrv Test strip (U) [Mass/Vol]Normal mg/dLNoMarietta Osteopathic Clinic Hemoglobin Test strip Ql (U)Ordered By: Rob Almazan on 01-23-2024 Hemoglobin Ql (U)2+HighNegTriHealth Bethesda North HospitalHyaline casts [#/area] in Urine sediment by Automated countOrdered By: Rob Almazan on 98-24-6887Vvweymu casts Auto (Urine sed) [#/Area]None [LPF]0-8Sal[facility] City HospitalKetones [Presence] in Urine by Test stripOrdered By: Rob Almazan on 42-07-0715Emyqmio Ql (U)NegativeNormalNegTriHealth Bethesda North HospitalComment on above:Order Comment: Name Collection Type:: Zapien CatheterPerformed By: #### ADDONUAPLUS, CUU #### [place] [address] USALeukocyte clumps [Presence] in Urine by AutomatedOrdered By: Rob Almazan on 04-38-2666Ooskdiluq clumps Auto Ql (U)Rare [LPF]High None SeenSalem City HospitalLeukocyte esterase [Presence] in Urine by Test stripOrdered By: Rob Almazan on 81-17-2090Hekffukfj esterase Test strip Ql (U)4+HighNegTriHealth Bethesda North HospitalComment on above:Order Comment: Name Collection Type:: Zapien CatheterPerformed By: #### JHONNY LOZANO #### [facility] [address] [phone] USALeukocytes [#/area] in Urine sediment by Automated count Ordered By: Rob Almazan on 14-39-7688GMV Auto (Urine sed) [#/Area]20-49 [HPF]High0-4FMedina HospitalMucus [Presence] in Urine by AutomatedOrdered By: Rob Almazan on 78-79-3364Ouihq Auto Ql (U)Rare [LPF]Sal[facility] City HospitalNitrite Test strip Ql (U)Ordered By: Robdiann Villaltaak on 39-96-0148Zihzrts Ql (U)NegativeNegTriHealth Bethesda North HospitalProtein Test strip (U) [Mass/Vol]Ordered By: Rob Dophoenix indian medical center on 94-26-1005Gbzsikh (U) [Mass/Vol]Trace mg/dLHighNegAdams County Hospitalpecific gravity Test strip (U) [Rel density]Ordered By: Rob Doamemarshfield medical center [facility]aver dam on 19-47-5347Mbfrhcaq gravity (U) [Rel density]1.022 1.001-1.030Sal[facility] City HospitalUrine Cultureon 74-04-0932Zoswkpag identified Cx Nom (U)ORGANISM: Enterococcus faecalis (O:ENTFAC) [place] Count 30,000 Aerobic RITESH Charge (PCMIC38) SUSCEPTIBILITY [...] RESISTANT TO ALL B-LACTAM DRUGS. PERFORMED BY: [place] [address] PATHOLOGIST EMERGENCY WORKER OREN OWEN M.D.NormalAdventhealth Orlando Physician GroupComment on above:Performed By: #### BLAKE, CUU #### [place] [address] USAUrine appearanceOrdered By: Rob Almazan on 42-79-3786Fzcbwzjpha (U)ClearNormalClearSalem City HospitalComment on above:Order Comment: Name Collection Type:: Zapien CatheterPerformed By: #### BLAKE, CUU #### [place] [address] USAUrine culture routineOrdered By: Rob Almazan on 08-27-6898Vxxirarq identified Cx Nom (U)Enterococcus faecalisAbMercy Health St. Elizabeth Boardman HospitalUrobilinogen Test strip (U) [Mass/Vol]Ordered By: Rob Almazan on 49-92-5535Csdzgfocfpit (U) [Mass/Vol]2 mg/dLFulton County Health CenterpH of Urine by Test stripOrdered By: Rob Almazan on 96-06-5891xW (U)5.5 [pH]Normal5.0-9.0Sal[facility] City HospitalComment on above:Order Comment: Name Collection Type:: Zapien Catheter Performed By: #### JESUSPLUS, CUU #### [place] [address] USAAutomated basophil %Ordered By: Nas Pruett on 01-21-2024 Basophils/100 WBC (Bld)0.5 %Normal.Sal[facility] City HospitalComment on above:Performed By: #### PTT, PT #### [place] [address] USAAutomated basophil countOrdered By: Nas Pruett on 89-75-8559Lytbhvhto (Bld) [#/Vol]0.0 10*3/uLNormal0.0-0.2FMedina HospitalComment on above:Result Comment: PERFORMED BY: [place] [address] PATHOLOGIST EMERGENCY WORKER OREN OWEN M.D.Performed By: #### PTT, PT #### [place] [address] USAAutomated blood monocyte countOrdered By: W Flynn on 62-77-5695Zepzkgqpu (Bld) [#/Vol]1.4 10*3/uLHigh0.0-0.8Sal[facility] City HospitalComment on above:Performed By: #### PTT, PT #### [place] [address] USAAutomated eosinophil %Ordered By: W Flynn on 01-21-2024 Eosinophils/100 WBC (Bld)3.6 %Normal.Salem City HospitalComment on above:Performed By: #### PTT, PT #### [place] [address] USAAutomated eosinophil countOrdered By: W Flynn on 46-77-5839Kytrqmouxbz (Bld) [#/Vol]0.3 10*3/uLNormal0.0-0.45Sal[facility] City HospitalComment on above:Performed By: #### PTT, PT #### [place] [address] USAAutomated monocyte %Ordered By: W Flynn on 01-21-2024 Monocytes/100 WBC (Bld)16.0 %Normal.Sal[facility] City HospitalComment on above:Performed By: #### PTT, PT #### [place] [address] USAAutomated neutrophil %Ordered By: W Flynn on 01-21-2024 Neutrophils/100 WBC (Bld)64.3 %Normal.Sal[facility] City HospitalComment on above:Performed By: #### PTT, PT #### [place] [address] USABasic Metabolic Panelon 36-49-2987Qeylxawvlr Clr Calc Wyoxowxt90.56NormalThe [facility] Physician [facility] Promise Of VicksburgComment on above:Result Comment: PERFORMED BY: [place] [address] PATHOLOGIST EMERGENCY WORKER OREN OWEN M.D.Performed By: #### PTT, PT #### [facility] [address] [place] [address] USAGFR/1.73 sq M.predicted MDRD (S/P/Bld) [Vol rate/Area] 43.613 mL/min/{1.73_m2}NormalThe [facility] Physician [facility] Promise Of VicksburgComment on above: Performed By: #### PTT, PT #### [place] [address] USACalcium [Mass/volume] in Serum or PlasmaOrdered By: Nas Pruett on 92-23-6523Xaqnohk [Mass/Vol]8.5 mg/dLLow8.6-10.3FMedina HospitalComment on above:Performed By: #### PTT, PT #### [place] [address] USACarbon dioxide, total [Moles/volume] in Serum or Plasma Ordered By: Nas Pruett on 53-86-2749NS4 [Moles/Vol]20.1 mmol/LLow21.0-31.0 Salem City HospitalComment on above:Performed By: #### PTT, PT #### [place] [address] USAChloride [Moles/volume] in Serum or PlasmaOrdered By: Nas Pruett on 26-14-4951Cyojfaxy [Moles/Vol]107 mmol/KNyswla46-807JoucfinaaSalem City HospitalComment on above:Performed By: #### PTT, PT #### [place] [address] USAComplete Blood Count Auto Diffon 50-70-4897Jmyr Corpuscular HGB Conc32.9 g/kLCctvke80.5-35.6The [facility] Physician GroupComment on above:Performed By: #### PTT, PT #### [facility] [address] [place] [address] USANRBC%0.1 /100{WBC}Normal0-0.5The [facility] Comment on above:Performed By: #### PTT, PT #### [facility] [address] [place] [address] USACreatinine [Mass/volume] in Serum or PlasmaOrdered By: Nas Pruett on 93-29-3628Mdeddqdamh [Mass/Vol]1.59 mg/dLHigh0.70-1.30Sal[facility] City HospitalComment on above:Performed By: #### PTT, PT #### [place] [address] USAErythrocyte distribution width [Ratio] by Automated count Ordered By: Nas Pruett on 59-83-4659Xngagxfqudc distribution width (RBC) [Ratio] 15.6 %High12.0-14.8Salem City HospitalComment on above:Performed By: #### PTT, PT #### [facility] [address] [place] [address] USAErythrocytes [#/volume] in Blood by Automated countOrdered By: Nas Pruett on 10-99-4776KIC (Bld) [#/Vol]4.33 10*6/uLNormal3.90-5.60 [facility] City HospitalComment on above:Performed By: #### PTT, PT #### [place] [address] USAGlucose [Mass/volume] in Serum or PlasmaOrdered By: Nas Pruett on 69-40-2537Neclzvj [Mass/Vol]121 mg/xBKtdi47-762WnlgmkktrSalem City HospitalComment on above:ADA recommended reference rangeRandom Glucose Reference [...] reference rangePerformed By: #### PTT, PT #### [facility] [address] [place] [id number] USAHematocrit [Volume Fraction] of Blood by Automated count Ordered By: Nas Pruett on 56-63-3654Ulqtysexgc (Bld) [Volume fraction]37.1 %Low 38.8-50.0Sal[facility] City HospitalComment on above:Performed By: #### PTT, PT #### [facility] [address] [place] [id number] USAHemoglobin [Mass/volume] in BloodOrdered By: Nas Pruett on 92-79-1748Zkvwpekohp (Bld) [Mass/Vol]12.2 g/dLLow13.0-17.0Sal[facility] City HospitalComment on above:Performed By: #### PTT, PT #### [place] [id number] USALeukocytes [#/volume] corrected for nucleated erythrocytes in Blood by Automated counOrdered By: Nas Pruett on 20-87-7050IUI corrected for nucl RBC Auto (Bld) [#/Vol]8.8 10*3/uL4.1-10.5FMedina Hospital Leukocytes [#/volume] in Blood by Automated countOrdered By: Nas Pruett on 43-99-3356GLJ (Bld) [#/Vol]8.8 10*3/uLNormal4.1-10.5FMedina HospitalComment on above:Performed By: #### PTT, PT #### [facility] [address] [place] [phone] USALymphocytes [#/volume] in Blood by Automated countOrdered By: Nas Pruett on 66-46-3048Zsqzjtydeix (Bld) [#/Vol]1.4 10*3/uLNormal1.00-4.8 [facility] City HospitalComment on above:Performed By: #### PTT, PT #### [place] [phone] USALymphocytes/100 leukocytes in Blood by Automated count Ordered By: Nas Pruett on 11-03-0310Teeeycbffei/100 WBC (Bld)15.6 %Normal. [facility] City HospitalComment on above:Performed By: #### PTT, PT #### [facility] [address]H [Entitic mass] by Automated countOrdered By: Nas Pruett on 68-21-3126EKS (RBC) [Entitic mass]28.1 cpMaidzw79.5-35.2FMedina HospitalComment on above:Performed By: #### PTT, PT #### [facility] [address] [place], [place] [address]HC Auto (RBC) [Mass/Vol]Ordered By: Nas Pruett on 47-91-2732NTDG (RBC) [Mass/Vol]32.9 g/dL32.5-35.6FMedina HospitalMCV [Entitic volume] by Automated countOrdered By: Nas Pruett on 01-21-2024 MCV (RBC) [Entitic vol]85.6 sUNuwzdl41.5-101[facility] Comment on above:Performed By: #### PTT, PT #### [facility] [address] [place] [address] USANeutrophils [#/volume] in Blood by Automated countOrdered By: Nas Pruett on 72-90-2696Rwmvldtbruk (Bld) [#/Vol]5.7 10*3/uLNormal1.8-7.7 [facility] City HospitalComment on above:Performed By: #### PTT, PT #### [facility] [address] [place] [address] USANo Panel InformationOrdered By: Nas Pruett on 01-21-2024 Estimated GFR (CKD-EPI)43.613 mL/MinSalem City HospitalPharmacy Creatinine Clearance (Chem46.56Salem City HospitalNucleated erythrocytes [Presence] in Blood by Automated countOrdered By: aNs Pruett on 28-61-7451Nzrwbixiq RBC Auto Ql (Bld)0.1 /100{WBC}0-0.5Fire[facility] Regional Medical CenterPlatelet mean volume [Entitic volume] in Blood by Automated count Ordered By: Nas Pruett on 76-88-3583Hahnfwxe mean volume (Bld) [Entitic vol]8.4 fLNormal6.6-10.1FMedina HospitalComment on above:Performed By: #### PTT, PT #### [facility] [address] [place] [address] USAPlatelets [#/volume] in Blood by Automated countOrdered By: Nas Pruett on 99-29-4203Uopifvmlw (Bld) [#/Vol]221 10*3/wTZkowye472-606 [facility] City HospitalComment on above:Performed By: #### PTT, PT #### [place] [address] USAPotassium [Moles/volume] in Serum or PlasmaOrdered By: Nas Pruett on 25-88-2663Mrkfnyidy [Moles/Vol]3.9 mmol/LNormal3.5-5.1FMedina HospitalComment on above:Performed By: #### PTT, PT #### [facility] [address] [place] [address] USASerum or plasma anion gap determinationOrdered By: Nas Pruett on 96-27-5095Wzmxw gap [Moles/Vol]13.8 mmol/LNormal6.0-15.0Sal[facility] City HospitalComment on above:Performed By: #### PTT, PT #### [facility] [address] [place] [address] USASodium [Moles/volume] in Serum or PlasmaOrdered By: Nas Pruett on 55-41-3281Biuzpn [Moles/Vol]137 mmol/VIxyhna455-893OcckgordoSalem City HospitalComment on above:Performed By: #### PTT, PT #### [facility] [address] [place] [address] USAUrea nitrogen [Mass/volume] in Serum or PlasmaOrdered By: Nas Pruett on 82-43-9531Lsaf nitrogen [Mass/Vol]35 mg/dLHigh7-25Salem City HospitalComment on above:Performed By: #### PTT, PT #### [place] [address] USABasic Metabolic Panelon 37-87-7099Jcnez gap [Moles/Vol] 12.0 mmol/LNormal6.0-15.0The [facility] Hospital Physician GroupComment on above:Performed By: #### JESUSPLUS, CUU #### [place] [address] USACalcium [Mass/Vol]8.4 mg/dLLow8.6-10.3The [facility] Hospital Physician GroupComment on above:Performed By: #### BLAKE, CUU #### [place] [address] USAChloride [Moles/Vol]107 mmol/SZdygxr68-183Ebd [facility] Hospital Physician GroupComment on above:Performed By: #### BLAKE, CUU #### [place] [address] USACO2 [Moles/Vol]19.5 mmol/LLow21.0-31.0The [facility] Hospital Physician GroupComment on above:Performed By: #### BLAKE, CUU #### [place] [address] USACreatinine [Mass/Vol]1.50 mg/dLHigh0.70-1.30The [facility] Hospital Physician GroupComment on above:Performed By: #### BLAKE, CUU #### [place] [address] USACreatinine Clr Calc Xlaflcve49.40NoBlowing Rock Hospital Physician GroupComment on above:Result Comment: PERFORMED BY: [place] [address] PATHOLOGIST EMERGENCY WORKER OREN OWEN M.D.Performed By: #### BLAKE, CUU #### [place] [address] USAGFR/1.73 sq M.predicted MDRD (S/P/Bld) [Vol rate/Area] 46.772 mL/min/{1.73_m2}NormalThe [facility] Women'S Hospital Physician GroupComment on above: Performed By: #### BLAKE, CUU #### [place] [address] USAGlucose [Mass/Vol]136 mg/pPHpiq74-870Zfc [facility] Physician GroupComment on above:Result Comment: Random Glucose Reference Range is dependent on time and content of last meal. Glucose of more than 200 mg/dL in a nonstressed, ambulatory subject supports the diagnosis of Diabetes Mellitus. ADA recommended reference rangePerformed By: #### BLAKE, CUU #### [place] [address] USAPotassium [Moles/Vol]3.5 mmol/LNormal3.5-5.1The [facility] Hospital Physician GroupComment on above:Performed By: #### BLAKE, CUU #### [place] [address] USASodium [Moles/Vol]135 mmol/XNgn118-479Lgp [facility] Physician GroupComment on above:Performed By: #### BLAKE, CUU #### [place] [address] USAUrea nitrogen [Mass/Vol]32 mg/dLHigh7-25The [facility] Hospital Physician GroupComment on above:Performed By: #### BLAKE, CUU #### [place] [address] USAComplete Blood Count Auto Diffon 68-55-1301Hwtosjhgs (Bld) [#/Vol]0.0 10*3/uLNormal0.0-0.2The [facility] Hospital Physician GroupComment on above: Result Comment: PERFORMED BY: [place] [address] PATHOLOGIST EMERGENCY WORKER OREN OWEN M.D.Performed By: #### BLAKE, CUU #### [place] [address] USABasophils/100 WBC (Bld)0.3 %Normal.The [facility] Hospital Physician GroupComment on above:Performed By: #### BLAKE, CUU #### [place] [address] USAEosinophils (Bld) [#/Vol]0.2 10*3/uLNormal0.0-0.45The [facility] Hospital Physician GroupComment on above:Performed By: #### BLAKE CUU #### [place] [address] USAEosinophils/100 WBC (Bld)1.7 %Normal.The [facility] Hospital Physician GroupComment on above:Performed By: #### BLAKE CUU #### [place] [address] USAErythrocyte distribution width (RBC) [Ratio]15.4 %High 12.0-14.8The [facility] Hospital Physician GroupComment on above:Performed By: #### BLAKE CUU #### [place] [address] USAHematocrit (Bld) [Volume fraction]37.6 %Low38.8-50.0The [facility] Hospital Physician GroupComment on above:Performed By: #### BLAKE CUU #### [place] [address] USAHemoglobin (Bld) [Mass/Vol]12.5 g/dLLow13.0-17.0The [facility] Hospital Physician GroupComment on above:Performed By: #### BLAKE CUU #### [place] [address] USALymphocytes (Bld) [#/Vol]1.1 10*3/uLNormal1.00-4.8The [facility] Hospital Physician GroupComment on above:Performed By: #### BLAKE, CUU #### [place] [address] USALymphocytes/100 WBC (Bld)11.8 %Normal.The [facility] Hospital Physician GroupComment on above:Performed By: #### BLAKE, CUU #### [facility] [address]H (RBC) [Entitic mass]28.5 krVhdicn79.5-35.2The [facility] Hospital Physician GroupComment on above:Performed By: #### JESUSPLUS, CUU #### [facility] [address] [place], [place] [address]V (RBC) [Entitic vol]85.9 oWJinuon54.5-101The [facility] Hospital Physician GroupComment on above:Performed By: #### JESUSPLUS, CUU #### [place] [address] USAMean Corpuscular HGB Conc33.2 g/bWMkgnkk02.5-35.6The [facility] Hospital Physician GroupComment on above:Performed By: #### BLAKE, CUU #### [place] [address] USAMonocytes (Bld) [#/Vol]1.4 10*3/uLHigh0.0-0.8The [facility] Hospital Physician GroupComment on above:Performed By: #### BLAKE CUU #### [place] [address] USAMonocytes/100 WBC (Bld)14.3 %Normal.The [facility] Hospital Physician GroupComment on above:Performed By: #### BLAKE, CUU #### [place] [address] USANeutrophils (Bld) [#/Vol]6.8 10*3/uLNormal1.8-7.7The [facility] Hospital Physician GroupComment on above:Performed By: #### JESUSPLUS, CUU #### [place] [address] USANeutrophils/100 WBC (Bld)71.9 %Normal.The [facility] Hospital Physician GroupComment on above:Performed By: #### OCTAVIOONUAPLUS, CUU #### [place] [address] USANRBC%0.0 /100{WBC}Normal0-0.5The [facility] Comment on above:Performed By: #### BLAKE CUU #### [place] [address] USAPlatelet mean volume (Bld) [Entitic vol]8.3 fLNormal 6.6-10.1The [facility] Physician [facility] VicksburgComment on above:Performed By: #### BLAKE, CUU #### [place] [address] USAPlatelets (Bld) [#/Vol]202 10*3/vODimjll212-269Ktz [facility] Physician GroupComment on above:Performed By: #### BLAKE, CUU #### [place] [address] USARBC (Bld) [#/Vol]4.38 10*6/uLNormal3.90-5.60The [facility] Physician GroupComment on above:Performed By: #### BLAKE, CUU #### [place] [address] USAWBC (Bld) [#/Vol]9.5 10*3/uLNormal4.1-10.5The [facility] Physician [facility] VicksburgComment on above:Performed By: #### BLAKE, CUU #### [place] [address] USAMagnesium [Mass/volume] in Serum or PlasmaOrdered By: Isaac Edwards on 26-84-2804Ytpncgklu [Mass/Vol]2.1 mg/dLNormal1.9-2.7 [facility] City HospitalComment on above:Result Comment: PERFORMED BY: [place] [address] PATHOLOGIST EMERGENCY WORKER OREN OWEN M.D.Performed By: #### BLAKE, CUU #### [place] [address] USABasic Metabolic Panelon 39-68-0566Gsadk gap [Moles/Vol] 11.7 mmol/LNormal6.0-15.0The [facility] Physician GroupComment on above:Performed By: #### PATH TO [facility] #### [place] [address] USACalcium [Mass/Vol]8.5 mg/dLLow8.6-10.3The [facility] Physician GroupComment on above:Performed By: #### PATH TO [facility] #### [place] [address] USAChloride [Moles/Vol]106 mmol/AIstjzy47-099Nhz [facility] Physician GroupComment on above:Performed By: #### PATH TO [facility] #### [place] [address] USACO2 [Moles/Vol]19.9 mmol/LLow21.0-31.0The [facility] Physician GroupComment on above:Performed By: #### PATH TO [facility] #### [place] [address] USACreatinine [Mass/Vol]1.62 mg/dLHigh0.70-1.30The [facility] Physician GroupComment on above:Performed By: #### PATH TO [facility] #### [place] [address] USACreatinine Clr Calc Tabotjfm51.28NormalThe [facility] Physician GroupComment on above:Result Comment: PERFORMED BY: [place] [address] PATHOLOGIST EMERGENCY WORKER OREN OWEN M.D.Performed By: #### PATH TO [facility] #### [place] [address] USAGFR/1.73 sq M.predicted MDRD (S/P/Bld) [Vol rate/Area] 42.646 mL/min/{1.73_m2}NormalThe [facility] Hospital Physician GroupComment on above: Performed By: #### PATH TO [facility] #### [place] [address] USAGlucose [Mass/Vol]145 mg/pWZght05-782Ekm [facility] Physician GroupComment on above:Result Comment: Random Glucose Reference Range is dependent on time and content of last meal. Glucose of more than 200 mg/dL in a nonstressed, ambulatory subject supports the diagnosis of Diabetes Mellitus. ADA recommended reference rangePerformed By: #### PATH TO [facility] #### [facility] [address] [place] [address] USAPotassium [Moles/Vol]3.6 mmol/LNormal3.5-5.1The [facility] Physician GroupComment on above:Performed By: #### PATH TO [facility] #### [place] [address] USASodium [Moles/Vol]134 mmol/KRdx915-486Dli [facility] Physician GroupComment on above:Performed By: #### [facility] TO [facility] #### [place] [address] USAUrea nitrogen [Mass/Vol]32 mg/dLHigh7-25The [facility] Physician GroupComment on above:Performed By: #### PATH TO [facility] #### [place] [address] USAComplete Blood Count Auto Diffon 49-63-6708Rtrfcwpdl (Bld) [#/Vol]0.0 10*3/uLNormal0.0-0.2The [facility] Physician GroupComment on above: Result Comment: PERFORMED BY: [place] [address] PATHOLOGIST EMERGENCY WORKER OREN OWEN M.D.Performed By: #### BLAKE CUU #### [place] [address] USABasophils/100 WBC (Bld)0.4 %Normal.The [facility] Physician GroupComment on above:Performed By: #### JESUSPLUS, CUU #### [place] [address] USAEosinophils (Bld) [#/Vol]0.0 10*3/uLNormal0.0-0.45The [facility] Physician GroupComment on above:Performed By: #### BLAKE, CUU #### [place] [address] USAEosinophils/100 WBC (Bld)0.4 %Normal.The [facility] Physician GroupComment on above:Performed By: #### BLAKE, CUU #### [place] [address] USAErythrocyte distribution width (RBC) [Ratio]15.6 %High 12.0-14.8The [facility] Hospital Physician GroupComment on above:Performed By: #### BLAKE CUU #### [place] [address] USAHematocrit (Bld) [Volume fraction]37.1 %Low38.8-50.0The [facility] Physician GroupComment on above:Performed By: #### BLAKE CUU #### [place] [address] USAHemoglobin (Bld) [Mass/Vol]12.3 g/dLLow13.0-17.0The [facility] Physician GroupComment on above:Performed By: #### BLAKE CUU #### [place] [address] USALymphocytes (Bld) [#/Vol]1.0 10*3/uLNormal1.00-4.8The [facility] Physician GroupComment on above:Performed By: #### BLAKE, CUU #### [place] [address] USALymphocytes/100 WBC (Bld)8.8 %Normal.The [facility] Physician GroupComment on above:Performed By: #### BLAKE, CUU #### [place] [address] USAMCH (RBC) [Entitic mass]28.6 qzFtvyav75.5-35.2The [facility] Physician GroupComment on above:Performed By: #### BLAKE, CUU #### [place] [address] USAMCV (RBC) [Entitic vol]86.5 wXRolgcw71.5-101The [facility] Physician GroupComment on above:Performed By: #### BLAKE, CUU #### [place] [address] USAMean Corpuscular HGB Conc33.0 g/gBJucdge18.5-35.6The [facility] Physician GroupComment on above:Performed By: #### HETALUAPLUS, CUU #### [place] [address] USAMonocytes (Bld) [#/Vol]1.3 10*3/uLHigh0.0-0.8The [facility] Physician GroupComment on above:Performed By: #### BLAKE CUU #### [place] [address] USAMonocytes/100 WBC (Bld)11.9 %Normal.The [facility] Physician GroupComment on above:Performed By: #### BLAKE CUU #### [place] [address] USANeutrophils (Bld) [#/Vol]8.6 10*3/uLHigh1.8-7.7The [facility] Physician GroupComment on above:Performed By: #### BLAKE CUU #### [place] [address] USANeutrophils/100 WBC (Bld)78.5 %Normal.The [facility] Physician GroupComment on above:Performed By: #### BLAKE, CUU #### [place] [address] USANRBC%0.1 /100{WBC}Normal0-0.5The [facility] Comment on above:Performed By: #### OCTAVIOONUAPLUS, CUU #### [place] [address] USAPlatelet mean volume (Bld) [Entitic vol]8.9 fLNormal 6.6-10.1The [facility] Physician GroupComment on above:Performed By: #### BLAKE, CUU #### [facility] [address] [place] [address] USAPlatelets (Bld) [#/Vol]165 10*3/zURqkesv441-167Ead [facility] Physician GroupComment on above:Performed By: #### BLAKE, CUU #### [facility] [address] [place] [address] USARBC (Bld) [#/Vol]4.30 10*6/uLNormal3.90-5.60The [facility] Physician GroupComment on above:Performed By: #### BLAKE, CUU #### [facility] [address] [place] [address] USAWBC (Bld) [#/Vol]11.0 10*3/uLHigh4.1-10.5The [facility] Physician GroupComment on above:Performed By: #### BLAKE, CUU #### [facility] [address] [place] [address] USAECG 12 lead ECGon 98-63-2219CPI 12 lead ECGMARYMOUNT HOSPITAL [place] [address] [place] [address] Electrocardiograph Report Signed Patient: Alex Anderson MR#: [id number] 36 : 1945 Acct:[id number] Age/Sex: 78 / M ADM Date: 01/16/24 Loc: Room: [address] [place] [address] Type: ADM IN Attending Dr: Nas Pruett [...] or before 16-Jan-2024) Inferolateral injury pattern ACUTE [place] / STEMI Abnormal ECG When compared with ECG of 18-Jan-2024 07:08, No significant change was found Confirmed by Misael Campbell ([id number]) on 01/20/2024 10:18:21 PM Referred By: Electronically Signed By: Misael Campbell Transcribed By: MUS Signed By Misael Campbell MD 01/20/24 2218[facility] CenterBasic Metabolic Panelon 96-99-3075Sxcxr gap [Moles/Vol]11.5 mmol/LNormal6.0-15.0The [facility] Physician [facility]burgComment on above:Performed By: #### CBC, BMP #### [place] [address] USACalcium [Mass/Vol]8.7 mg/dLNormal8.6-10.3The [facility] Physician [facility]icksburgComment on above:Performed By: #### CBC, BMP #### [place] [address] USAChloride [Moles/Vol]107 mmol/KCxomul46-370Tac [facility] Physician [facility] VicksburgComment on above:Performed By: #### CBC, BMP #### [place] [address] USACO2 [Moles/Vol]21.2 mmol/AFcfhqb45.0-31.0The [facility] Physician [facility] VicksburgComment on above:Performed By: #### CBC, BMP #### [place] [address] USACreatinine [Mass/Vol]1.59 mg/dLHigh0.70-1.30The [facility] East Norwegian StreetComment on above:Performed By: #### CBC, BMP #### [place] [address] USACreatinine Clr Calc Cnovgekv60.65NormBaptist Health Bet[facility] East Physician [facility] Of VicksburgComment on above:Result Comment: PERFORMED BY: [place] [address] PATHOLOGIST EMERGENCY WORKER ROEN OWEN M.D.Performed By: #### CBC, BMP #### [place] [address] USAGFR/1.73 sq M.predicted MDRD (S/P/Bld) [Vol rate/Area] 43.613 mL/min/{1.73_m2}NormalThe [facility] Physician GroupComment on above: Performed By: #### CBC, BMP #### [place] [address] USAGlucose [Mass/Vol]125 mg/xELhqz00-706Lqg [facility] Physician GroupComment on above:Result Comment: Random Glucose Reference Range is dependent on time and content of last meal. Glucose of more than 200 mg/dL in a nonstressed, ambulatory subject supports the diagnosis of Diabetes Mellitus. ADA recommended reference rangePerformed By: #### CBC, BMP #### [place] [address] USAPotassium [Moles/Vol]3.7 mmol/LNormal3.5-5.1The [facility] Physician GroupComment on above:Performed By: #### CBC, BMP #### [place] [address] USASodium [Moles/Vol]136 mmol/AVfqabo343-827Trb [facility] Physician GroupComment on above:Performed By: #### CBC, BMP #### [place] [address] USAUrea nitrogen [Mass/Vol]29 mg/dLHigh7-25The [facility] Physician GroupComment on above:Performed By: #### CBC, BMP #### [place] [address] USAComplete Blood Count Auto Diffon 31-52-2226Znqiqpzpy (Bld) [#/Vol]0.0 10*3/uLNormal0.0-0.2The [facility] Physician GroupComment on above: Result Comment: PERFORMED BY: [place] [address] PATHOLOGIST EMERGENCY WORKER OREN OWEN M.D.Performed By: #### CBC, BMP #### [place] [id number] USABasophils/100 WBC (Bld)0.4 %Normal.The [facility] Physician GroupComment on above:Performed By: #### CBC, BMP #### [place] [address] USAEosinophils (Bld) [#/Vol]0.0 10*3/uLNormal0.0-0.45The [facility] Physician GroupComment on above:Performed By: #### CBC, BMP #### [place] [address] USAEosinophils/100 WBC (Bld)0.2 %Normal.The [facility] Hospital Physician GroupComment on above:Performed By: #### CBC, BMP #### [place] [address] USAErythrocyte distribution width (RBC) [Ratio]15.9 %High 12.0-14.8The [facility] Hospital Physician GroupComment on above:Performed By: #### CBC, BMP #### [place] [address] USAHematocrit (Bld) [Volume fraction]38.2 %Low38.8-50.0The [facility] Physician GroupComment on above:Performed By: #### CBC, BMP #### [place] [address] USAHemoglobin (Bld) [Mass/Vol]12.7 g/dLLow13.0-17.0The [facility] Physician GroupComment on above:Performed By: #### CBC, BMP #### [place] [address] USALymphocytes (Bld) [#/Vol]1.4 10*3/uLNormal1.00-4.8The [facility] Physician GroupComment on above:Performed By: #### CBC, BMP #### [place] [address] USALymphocytes/100 WBC (Bld)11.5 %Normal.The [facility] Physician GroupComment on above:Performed By: #### CBC, BMP #### [facility] [address] [id number] USAH (RBC) [Entitic mass]28.5 [id number] [facility] Physician GroupComment on above:Performed By: #### CBC, BMP #### [facility] [address] [place] [address] USAMCV (RBC) [Entitic vol]85.4 [id number] [facility] Physician GroupComment on above:Performed By: #### CBC, BMP #### [facility] [address] [place] [address] USAMean Corpuscular HGB Conc33.4 g/cWJfumbp09.5-35.6The [facility] Physician GroupComment on above:Performed By: #### CBC, BMP #### [facility] [address] [place] [address] USAMonocytes (Bld) [#/Vol]1.5 10*3/uLHigh0.0-0.8The [facility] Physician GroupComment on above:Performed By: #### CBC, BMP #### [place] [address] USAMonocytes/100 WBC (Bld)12.8 %Normal.The [facility] Physician GroupComment on above:Performed By: #### CBC, BMP #### [facility] [address] [place] [address] USANeutrophils (Bld) [#/Vol]9.1 10*3/uLHigh1.8-7.7The [facility] Physician GroupComment on above:Performed By: #### CBC, BMP #### [facility] [address] [place] [address] USANeutrophils/100 WBC (Bld)75.1 %Normal.The [facility] Physician GroupComment on above:Performed By: #### CBC, BMP #### [facility] [address] [place] [address] USANRBC%0.0 /100{WBC}Normal0-0.5The [facility] Comment on above:Performed By: #### CBC, BMP #### [facility] [address] [place] [address] USAPlatelet mean volume (Bld) [Entitic vol]9.3 fLNormal 6.6-10.1The [facility] Physician GroupComment on above:Performed By: #### CBC, BMP #### [facility] [address] [place] [address] USAPlatelets (Bld) [#/Vol]131 10*3/mMQqz461-868Whb [facility] Physician GroupComment on above:Performed By: #### CBC, BMP #### [facility] [address] [place] [address] USARBC (Bld) [#/Vol]4.47 10*6/uLNormal3.90-5.60The [facility] Physician GroupComment on above:Performed By: #### CBC, BMP #### [facility] [address] [place] [address] USAWBC (Bld) [#/Vol]12.1 10*3/uLHigh4.1-10.5The [facility] Physician GroupComment on above:Performed By: #### CBC, BMP #### [place] [address] USAECG 12 lead ECGon 09-74-8792WQG 12 lead ECGMARYMOUNT [facility] [place] [address] [place] [address] Electrocardiograph Report Signed Patient: Alex Anderson MR#: [id number] 36 : 1945 Acct:[id number] Age/Sex: 78 / M ADM Date: 01/16/24 Loc: Room: [address] [place] [address] Type: ADM IN Attending Dr: Nas Pruett [...] Signed By Ana Castro MD 0 01/18/24 1102[facility] CenterBasic Metabolic Panelon 34-69-0694Vufte gap [Moles/Vol]12.3 mmol/LNormal6.0-15.0The [facility] Physician GroupComment on above:Performed By: #### BLAKE, CUU #### [facility] [address] [place] [address] USACalcium [Mass/Vol]8.9 mg/dLNormal8.6-10.3The [facility] Physician GroupComment on above:Performed By: #### BLAKE, CUU #### [facility] [address] [place] [address] USAChloride [Moles/Vol]105 mmol/DQmkbml43-635Ngo [facility] Physician GroupComment on above:Performed By: #### BLAKE, CUU #### [facility] [address] [place] [address] USACO2 [Moles/Vol]22.2 mmol/UVhhnbz03.0-31.0The [facility] Physician GroupComment on above:Performed By: #### BLAKE, CUU #### [facility] [address] [place] [address] USACreatinine [Mass/Vol]1.70 mg/dLHigh0.70-1.30The [facility] Physician GroupComment on above:Performed By: #### BLAKE, CUU #### [facility] [address] [place] [address] USACreatinine Clr Calc Eroaiwza81.35NormBaptist Health Bethes[facility] Hospital East Physician GroupComment on above:Performed By: #### BLAKE, CUU #### [facility] [address] [place] [address] USAGFR/1.73 sq M.predicted MDRD (S/P/Bld) [Vol rate/Area] 40.249 mL/min/{1.73_m2}NormalAdventhealth Orlando Physician GroupComment on above: Performed By: #### BLAKE, CUU #### [facility] [address] [place] [address] USAGlucose [Mass/Vol]115 mg/hURkjs59-931Suq [facility] Physician GroupComment on above:Result Comment: Random Glucose Reference Range is dependent on time and content of last meal. Glucose of more than 200 mg/dL in a nonstressed, ambulatory subject supports the diagnosis of Diabetes Mellitus. ADA recommended reference rangePerformed By: #### BLAKE, CUU #### [facility] [address] [place] [address] USAPotassium [Moles/Vol]4.5 mmol/LNormal3.5-5.1The [facility] Physician [facility] Promise Of VicksburgComment on above:Performed By: #### BLAKE, CUU #### [facility] [address] [place] [address] USASodium [Moles/Vol]135 mmol/UIez691-138Sgg [facility] Physician GroupComment on above:Performed By: #### BLAKE, CUU #### [facility] [address] [place] [address] USAUrea nitrogen [Mass/Vol]26 mg/dLHigh7-25The [facility] Physician GroupComment on above:Performed By: #### HETALUAJONATHAN, CUU #### [facility] [address] [place] [address] USACapillary blood glucose measurement by glucometer (mass/volume)Ordered By: Nas Pruett on 24-25-2459Ablbtcl [Mass/Vol]126 mg/dL [facility] Berger HospitalComment on above:Random Glucose Reference Range is dependent [...] the diagnosis of Diabetes Mellitus. PERFORMED BY: [address] [address] PATHOLOGIST EMERGENCY WORKER OREN OWEN M.D.Performed By: #### BLAKE, CUU #### [facility] [address] [place] [address] USACholesterol [Mass/volume] in Serum or PlasmaOrdered By: Nas Pruett on 32-14-4876Yctakjehsik [Mass/Vol]74 mg/lRWnu977-703AsqlswpvsSalem City HospitalComment on above:Chol less than 200 mg/dl low riskChol 201-239 mg/dl borderline riskChol 240 mg/dl and greater high riskResult Comment: Chol less than 200 mg/dl low risk Chol 201-239 mg/dl borderline risk Chol 240 mg/dl and greater high riskPerformed By: #### BLAKE, CUU #### [facility] [address] [place] [address] USACholesterol in LDL Calc [Mass/Vol]Ordered By: Nas Pruett on 06-49-1562Akuqdbsnici in LDL [Mass/Vol]28 mg/dL0-100Salem City HospitalComment on above:LDL ATP III CLASSIFICATIONLDL less than 100 mg/dL OptimalLDL 100-129 mg/dL Near or above zrnsezzWTI128-776 mg/dL Borderline highLDL 160-189 mg/dL HighLDL greater than 189 mg/dL Very highCholesterol in VLDL Calc [Mass/Vol]Ordered By: Nas Pruett on 16-84-7982Jwgwfumuuie in VLDL [Mass/Vol]13 mg/dLSalem City HospitalDipstick and Microscopicon 30-11-6752Bocxpxpzwe (U)CloudyCritically abnormalClearThe [facility] Physician GroupComment on above:Order Comment: Name Collection Type:: Zapien Catheter Performed By: #### BLAKE, CUU #### [facility] [address] [place] [address] USABacteria,Urine2+HighNone SeenThe [facility] Physician Group Comment on above:Order Comment: Name Collection Type:: Zapien CatheterPerformed By: #### ADDONUAPLUS, CUU #### [facility] [address] [place], [place] [address] USABilirubin,UrineNegativeNormalNegativeAdventhealth Orlando Physician GroupComment on above:Order Comment: Name Collection Type:: Zapien CatheterPerformed By: #### ADDONUAPLUS, CUU #### [address] [address] USAColor (U)Light-YellowNormalYellowAdventhealth Orlando Physician GroupComment on above:Order Comment: Name Collection Type:: Zapien Catheter Performed By: #### ADDONUAPLUS, CUU #### [place] [id number] USAGlucose Ql (U)NormalNormalNormalThTeton Valley Hospital Physician GroupComment on above:Order Comment: Name Collection Type:: Zapien Catheter Performed By: #### ADDONUAPLUS, CUU #### [facility] [address] [place] [address] USAHyaline Casts,UrineNoneNormal0-8The [facility] Physician GroupComment on above:Order Comment: Name Collection Type:: Zapien Catheter Performed By: #### ADDONUAPLUS, CUU #### [facility] [address] [place] [address] USAKetones Ql (U)NegativeNormalNegativeAdventhealth Orlando Physician GroupComment on above:Order Comment: Name Collection Type:: Zapien CatheterPerformed By: #### ADDONUAPLUS, CUU #### [facility] [address] [place] [address] USALeukocyte esterase Test strip Ql (U)3+HighNegativeAdventhealth Orlando Physician GroupComment on above:Order Comment: Name Collection Type:: Zapien CatheterPerformed By: #### ADDONUAPLUS, CUU #### [facility] [address] [place], [place] [address] USAMucus,UrineRareNormalThe [facility] Physician GroupComment on above:Order Comment: Name Collection Type:: Zapien CatheterResult Comment: PERFORMED BY: [place] [address] PATHOLOGIST EMERGENCY WORKER OREN OWEN M.D.Performed By: #### BLAKE, CUU #### [place] [address] USANitrite,UrineNegativeNormalNegativeThe [facility] Physician GroupComment on above:Order Comment: Name Collection Type:: Zapien Catheter Performed By: #### BLAKE, CUU #### [place] [address] USAOccult Blood,UrineTraceHighNegativeThe [facility] Physician GroupComment on above:Order Comment: Name Collection Type:: Zapien Catheter Result Comment: PERFORMED BY: [place] [address] PATHOLOGIST EMERGENCY WORKER OREN OWEN M.D.Performed By: #### BLAKE, CUU #### [place] [address] USApH (U)6.0 [pH]Normal5.0-9.0The [facility] Comment on above:Order Comment: Name Collection Type:: Zapien CatheterPerformed By: #### BLAKE, CUU #### [place] [address] USAProtein,UrineTraceHighNegativeThe [facility] Physician GroupComment on above:Order Comment: Name Collection Type:: Zapien Catheter Performed By: #### BLAKE, CUU #### [place] [id number] USARBC,Xorrl6-6Nnogaz8-4Djg [facility] Physician GroupComment on above:Order Comment: Name Collection Type:: Zapien CatheterPerformed By: #### BLAKE, CUU #### [place] [address] USASpecificy [place],Urine1.944Iyzjzs5.001-1.030The [facility] Physician GroupComment on above:Order Comment: Name Collection Type:: Zapien CatheterPerformed By: #### ADDONUAPLUS, CUU #### [facility] [address] [place] [phone] USASquamous Epithelial Cell,Jnklz4-7Ugpcri1-5Ake [facility] Physician GroupComment on above:Order Comment: Name Collection Type:: Zapien CatheterPerformed By: #### ADDONUAPLUS, CUU #### [facility] [address] [place] [phone] USAUrobilinogen,UrineNormalNormalNormalThe [facility] Physician GroupComment on above:Order Comment: Name Collection Type:: Zapien CatheterPerformed By: #### ADDONUAPLUS, CUU #### [facility] [address] [place] [phone] USAWBC,Yhyun65-09Wccm1-0Qtz [facility] Physician GroupComment on above:Order Comment: Name Collection Type:: Zapien CatheterPerformed By: #### ADDONUAPLUS, CUU #### [place] [phone] USAECG 12 lead ECGon 21-58-9585ZQM 12 lead ECGMARYMOUNT HOSPITAL [place] [address] [place] [address] Electrocardiograph Report Signed Patient: Alex Anderson MR#: [id number] 36 : 1945 Acct:[id number] Age/Sex: 78 / M ADM Date: 01/16/24 Loc: Room: [address] [place] [address] Type: ADM IN Attending Dr: Nas Pruett [...] or before 16-Jan-2024) Inferior injury pattern ACUTE [place] / STEMI Abnormal ECG When compared with ECG of 16-Jan-2024 19:53, (Unconfirmed) Serial changes of evolving Septal infarct present Confirmed by ANA CASTRO MD ([id number]) on 01/17/2024 9:52:42 AM Referred By: Electronically Signed By: ANA CASTRO MD Transcribed By: MUS Signed By Ana Castro MD 0 01/17/24 0952[facility] Physician GroupECH echo transthoracicon 15-68-7819VUN echo transthoracicMARYMOUNT HOSPITAL [place] [address] [place] [address] Echocardiogram Signed Patient: Alex Anderson MR#: [id number] 36 : 1945 Acct:[id number] Age/Sex: 78 / M ADM Date: 01/16/24 Loc: Room: [address] [place] [address] Type: ADM IN Attending Dr: Nas Pruett [...] 1045 Signed By: Ana Castro MD 01/17/24 1150NoBlowing Rock Hospital Physician GroupGlucose Poct Glucometerson 04-29-6797Shvifeb [Mass/Vol]115 mg/dLNoBlowing Rock Hospital Physician GroupComment on above:Result Comment: Random Glucose Reference Range is dependent on time and content of last meal. Glucose of more than 200 mg/dL in a nonstressed, ambulatory subject supports the diagnosis of Diabetes Mellitus. PERFORMED BY: [place] [address] [place] [address] PATHOLOGIST EMERGENCY WORKER OREN OWEN M.D.Performed By: #### PTT, PT #### [facility] [address] [place] [phone] USAGlucose [Mass/Vol]114 mg/dLNormBaptist Health Bethes[facility] Hospital East Physician GroupComment on above:Result Comment: Random Glucose Reference Range is dependent on time and content of last meal. Glucose of more than 200 mg/dL in a nonstressed, ambulatory subject supports the diagnosis of Diabetes Mellitus. PERFORMED BY: [place] [address] PATHOLOGIST EMERGENCY WORKER OREN OWEN M.D.Performed By: #### ADDMOEUAPLUS, CUU #### [place] [address] USAGlucose [Mass/Vol]125 mg/dLNormBaptist Health Bet[facility] East Physician GroupComment on above:Result Comment: Random Glucose Reference Range is dependent on time and content of last meal. Glucose of more than 200 mg/dL in a nonstressed, ambulatory subject supports the diagnosis of Diabetes Mellitus. PERFORMED BY: [place] [address] PATHOLOGIST EMERGENCY WORKER OREN OWEN M.D.Performed By: #### PTT, PT #### [place] [phone] USALipid Panelon 95-97-3376SHF Cholesterol,Vpofedamzy78 mg/dL Normal0-100The [facility] Physician GroupComment on above:Result Comment: LDL ATP III CLASSIFICATION LDL less than 100 mg/dL Optimal LDL 100-129 mg/dL Near or above optimal LDL 130-159 mg/dL Borderline high LDL 160-189 mg/dL High LDL greater than 189 mg/dL Very highPerformed By: #### ADDONUAPLUS, CUU #### [place] [phone] USATriglyceride w/Ogiczb31 mg/dLNormal0-149The [facility] Physician GroupComment on above:Result Comment: TRIG ATP III CLASSIFICATION TRIG less than 150 mg/dL Normal TRIG 150-199 mg/dL Borderline high TRIG 200-500 mg/dL High TRIG greater than 500 mg/dL Very high Standard traceable to the Center for Disease Conrtrol and Prevention (CDC) test method.Performed By: #### BLAKE, CUU #### [facility] [address] [place] [address] USAVLDL XYSGQRTYXTE39 mg/dLNormalThe [facility] Physician GroupComment on above:Performed By: #### BLAKE, CUU #### [facility] [address] [place] [address] USAPlatelet adequacy [Presence] in Blood by Light microscopy Ordered By: Nas Pruett on 58-24-5305Pdcgnqmgk LM Ql (Bld)DecreasedNormalSalem City HospitalPlatelet morphology finding [Identifier] in BloodOrdered By: Nas Pruett on 89-92-5011Honegzoj morphology finding Nom (Bld)NormalNormal Salem City HospitalRBC morphologyOrdered By: Nas Pruett on 28-97-0612VUP morphology finding Nom (Bld)N/[facility] Scan and CBCon 78-68-7758Wmyvdkhzm (Bld) [#/Vol]0.1 10*3/uLNormal0.0-0.2The [facility] Physician GroupComment on above:Result Comment: PERFORMED BY: [place] [address] PATHOLOGIST EMERGENCY WORKER OREN OWEN M.D.Performed By: #### BLAKE, CUU #### [place] [address] USABasophils/100 WBC (Bld)0.4 %Normal.The [facility] Physician GroupComment on above:Performed By: #### BLAKE, CUU #### [facility] [address] [place] [phone] USAEosinophils (Bld) [#/Vol]0.0 10*3/uLNormal0.0-0.45The [facility] Physician GroupComment on above:Performed By: #### BLAKE, CUU #### [place] [address] USAEosinophils/100 WBC (Bld)0.0 %Normal.The [facility] Physician GroupComment on above:Performed By: #### BLAKE, CUU #### [place] [address] USAErythrocyte distribution width (RBC) [Ratio]15.8 %High 12.0-14.8The [facility] Physician GroupComment on above:Performed By: #### BLAKE, CUU #### [place] [address] USAHematocrit (Bld) [Volume fraction]38.4 %Low38.8-50.0The [facility] Physician GroupComment on above:Performed By: #### BLAKE CUU #### [place] [address] USAHemoglobin (Bld) [Mass/Vol]12.7 g/dLLow13.0-17.0The [facility] Physician GroupComment on above:Performed By: #### BLAKE CUU #### [place] [address] USALymphocytes (Bld) [#/Vol]1.2 10*3/uLNormal1.00-4.8The [facility] Physician GroupComment on above:Performed By: #### BLAKE CUU #### [place] [address] USALymphocytes/100 WBC (Bld)6.9 %Normal.The [facility] Physician GroupComment on above:Performed By: #### BLAKE, CUU #### [place] [address] USAMCH (RBC) [Entitic mass]28.4 ltGudrri95.5-35.2The [facility] Physician GroupComment on above:Performed By: #### BLAKE, CUU #### [place] [address] USAMCV (RBC) [Entitic vol]86.1 zWMgnkcc80.5-101The [facility] Physician GroupComment on above:Performed By: #### BLAKE CUU #### [facility] [address] [place] [address] USAMean Corpuscular HGB Conc33.0 g/bTMrupkn27.5-35.6The [facility] Physician GroupComment on above:Performed By: #### ADDONUAPLUS, CUU #### [facility] [address] [place] [address] USAMonocytes (Bld) [#/Vol]2.8 10*3/uLHigh0.0-0.8The [facility] Physician GroupComment on above:Performed By: #### ADDONUAPLUS, CUU #### [facility] [address] [place] [address] USAMonocytes/100 WBC (Bld)15.6 %Normal.The [facility] Physician GroupComment on above:Performed By: #### ADDONUAPLUS, CUU #### [place] [address] USANeutrophils (Bld) [#/Vol]13.6 10*3/uLHigh1.8-7.7The [facility] Physician GroupComment on above:Performed By: #### OCTAVIOONUAPLUS, CUU #### [place] [address] USANeutrophils/100 WBC (Bld)77.1 %Normal.The [facility] Physician GroupComment on above:Performed By: #### OCTAVIOONJOHN, CUU #### [facility] [address] [place] [address] USANRBC%0.0 /100{WBC}Normal0-0.5The [facility] Comment on above:Performed By: #### ADDONUAPLUS, CUU #### [facility] [address] [place] [address] USAPlatelet EstimateDecreasedNormalNormalThe [facility] Physician GroupComment on above:Performed By: #### ADDONUAPLUS, CUU #### [facility] [address] [place] [address] USAPlatelet mean volume (Bld) [Entitic vol]9.0 fLNormal 6.6-10.1The [facility] Physician GroupComment on above:Performed By: #### ADDZACPLUS, CUU #### [place] [address] USAPlatelet MorphologyNormalNormalNormalThe [facility] Physician GroupComment on above:Result Comment: PERFORMED BY: [place] [address] PATHOLOGIST EMERGENCY WORKER OREN OWEN M.D.Performed By: #### ADDONUAPLUS, CUU #### [place] [address] USAPlatelets (Bld) [#/Vol]135 10*3/cCMsu434-034Nvr [facility] Physician GroupComment on above:Performed By: #### JESUSPLUS, CUU #### [place] [address] USARBC (Bld) [#/Vol]4.46 10*6/uLNormal3.90-5.60The [facility] Physician GroupComment on above:Performed By: #### ADDONUAPLUS, CUU #### [place] [address] USAWBC (Bld) [#/Vol]17.7 10*3/uLHigh4.1-10.5The [facility] Physician GroupComment on above:Performed By: #### ADDONUAPLUS, CUU #### [place] [address] USASerum or plasma high density lipoprotein (HDL) cholesterol measurementOrdered By: Nas Pruett on 50-30-8048Wphhoovynst in HDL [Mass/Vol]33 mg/kLNszbok30-65IhxzeyxyqSalem City HospitalComment on above:HDL CHOL ATP- III CLASSIFICATION Cardiovascular RiskHDL > or equal to 60 mg/dL LOWHDL < 40 mg/dL HIGHResult Comment: HDL CHOL ATP-III CLASSIFICATION Cardiovascular Risk HDL > or equal to 60 mg/dL LOW HDL < 40 mg/dL HIGHPerformed By: #### ADDONUAPLUS, CUU #### [address] [place] [address] USASerum or plasma total cholesterol/high density lipoprotein (HDL) cholesterol mass ratOrdered By: Nas Pruett on 01-17-2024 Cholesterol.total/Cholesterol in HDL [Mass ratio]2.2 {ratio}Normal<5.0Salem City HospitalComment on above:Result Comment: PERFORMED BY: [place] [address] PATHOLOGIST EMERGENCY WORKER OREN OWEN M.D.Performed By: #### MAISHA LOZANOU #### [address] [address] USATriglyceride [Mass/volume] in Serum or PlasmaOrdered By: Nas Pruett on 35-52-3254Kkowbwzcuhfq [Mass/Vol]67 mg/dL0-149Salem City HospitalComment on above:TRIG ATP III CLASSIFICATIONTRIG less than 150 mg/dL NormalTRIG 150-199 mg/dL Borderline highTRIG 200-500 mg/dL High TRIG greater than 500 mg/dL Very highStandard traceable to the Center for Disease Co nrtrol and Prevention (CDC) test method.Troponin I High Sensitivityon 01-17-2024 Troponin I High Jxexwcdlkut84332.6 pg/mLOff scale high0.0-20.0The [facility] Physician GroupComment on above:Result Comment: Critical Result I_TnIHS_d:47552.6 Called to and read back by: WU MCDANIEL at: 01/17/2024 06:17:54 by:[id number] PERFORMED BY: [place] [id number] PATHOLOGIST EMERGENCY WORKER OREN OWEN M.D.Performed By: #### BLAKE CUU #### [address] [address] USATroponin I.cardiac [Mass/volume] in Serum or Plasma by Detection limit <= 0.01 ng/Ordered By: Nas Pruett on 77-94-6587Zhduewgx I.cardiac DL <= 0.01 ng/mL [Mass/Vol]83717.6 pg/mLHigh0.0-20.0Salem City HospitalComment on above:Critical Result I_TnIHS_d:64360.6 Called to and read back by: WU MCDANIEL at: 01/17/2024 06:17:54 by:[id number] Cultureon 73-09-7522Ztjmxqyp identified Cx Nom (U)ORGANISM: Enterococcus faecalis (O:ENTFAC) [place] Count >100,000 Aerobic RITESH Charge (PCMIC38) SUSCEPTIBILITY [...] RESISTANT TO ALL B-LACTAM DRUGS. PERFORMED BY: [place] [address] PATHOLOGIST EMERGENCY WORKER OREN OWEN M.D.[facility] Physician GroupComment on above:Performed By: #### PTT, PT #### [facility] [address] [place] [address] USAUrine culture routineOrdered By: Justina Lara on 62-43-7457Iwrxtxsg identified Cx Nom (U)Enterococcus faecalisAbnoMarietta Osteopathic ClinicXR chest 1V portableon 84-18-3973FW chest 1V portable [facility] [place] [address] [place] [address] XRay Report Signed Patient: Alex Anderson MR#: [id number] 36 : 1945 Acct:[id number] Age/Sex: 78 / M ADM Date: 01/16/24 Loc: Room: [address] [place] [address] Type: ADM IN Attending Dr: Nas Pruett [...] Corky Max M.D.01/17/2024 11:34 AM Dictation Location: [place] [address] Transcribed By: [facility] 01/17/24 1134 Dictated By: Corky Max II, MD 01/17/24 1132 Signed By: 01/17/24 1134[facility] Physician GroupECG 12 lead ECGon 54-96-6417ILJ 12 lead ECGMARYMOUNT HOSPITAL [place] [address] [place] [address] Electrocardiograph Report Signed Patient: Alex Anderson MR#: [id number] 36 : 1945 Acct:[id number] Age/Sex: 78 / M ADM Date: 01/16/24 Loc: Room: [address] [place] [address] Type: ADM IN Attending Dr: Nas Pruett [...] Signed By Ana Castro MD 0 01/17/24 0952[facility] Physician GroupECG 12 lead ECGMARYMOUNT HOSPITAL [place] [address] [place] [address] Electrocardiograph Report Signed Patient: Alex Anderson MR#: [id number] 36 : 1945 Acct:[id number] Age/Sex: 78 / M ADM Date: 01/16/24 Loc: Room: [address] [place] [address] Type: ADM IN Attending Dr: Nas Pruett [...] Signed By Ana Castro MD 0 01/17/24 0057[facility] Physician Glucose Poct Glucometerson 41-49-9763Rcyvust9Jnd4: Cleaned MeterRidgeview Le Sueur Medical CenterComment on above:Result Comment: PERFORMED BY: [place] [address] PATHOLOGIST EMERGENCY WORKER OREN OWEN M.D.Performed By: #### BLAKE, CUU #### [place] [address] USAGlucose [Mass/Vol]118 mg/dLNoBlowing Rock Hospital Physician GroupComment on above:Result Comment: Random Glucose Reference Range is dependent on time and content of last meal. Glucose of more than 200 mg/dL in a nonstressed, ambulatory subject supports the diagnosis of Diabetes Mellitus.Performed By: #### BLAKE, CUU #### [place] [address] USAGlucose [Mass/Vol]119 mg/dLNoBlowing Rock Hospital Physician GroupComment on above:Result Comment: Random Glucose Reference Range is dependent on time and content of last meal. Glucose of more than 200 mg/dL in a nonstressed, ambulatory subject supports the diagnosis of Diabetes Mellitus. PERFORMED BY: [place] [phone] PATHOLOGIST EMERGENCY WORKER OREN OWEN M.D.Performed By: #### BLAKE, CUU #### [place] [address] USANo Panel InformationOrdered By: Nas Pruett on 01-16-2024 Bedside Glucose CommentGlu2: cleaned [facility] Troponin I High Sensitivityon 36-81-0009Ibtatffn I High Szhkuiqlcyt17606.2 pg/mL Off scale high0.0-20.0[facility] Physician GroupComment on above:Result Comment: Critical Result I_TnIHS_d:75104.2 Called to and read back by: BRIDGETTE LUIS at: 01/16/2024 20:40:51 by:[id number] PERFORMED BY: [place] [address] PATHOLOGIST EMERGENCY WORKER OREN OWEN M.D.Performed By: #### HS TROP #### [place] [address] USATroponin I High Spebpgbvnum492019.4 pg/mLOff scale high 0.0-20.0[facility] Physician [facility] VicksburgComment on above:Result Comment: Critical Result I_TnIHS_d:451243.4 Called to and read back by: BROOKE CANDELARIA at: 01/16/2024 18:52:06 by:JULIO PERFORMED BY: [phone] PATHOLOGIST EMERGENCY WORKER OREN OWEN M.D.Performed By: #### BLAKE, CUU #### [place] [id number] USATroponin I High Fiwzrjshwao907294.2 pg/mLOff scale high 0.0-20.0[facility] Physician [facility] Of VicksburgComment on above:Result Comment: Critical Result I_TnIHS_d:508620.2 Called to and read back by: BROOKE CANDELARIA at: 01/16/2024 16:28:58 by:[id number] PERFORMED BY: [place] [phone] PATHOLOGIST EMERGENCY WORKER OREN OWEN M.D.Performed By: #### BLAKE, CUU #### [facility] [address] [place], [place] [address] USATroponin I High Lfwshtyfqms43749.4 pg/mLOff scale high 0.0-20.0[facility] Physician [facility] Of VicksburgComment on above:Result Comment: Critical Result I_TnIHS_d:45115.4 Called to and read back by: BROOKE CANDELARIA at: 01/16/2024 14:15:37 by:MLG PERFORMED BY: [phone] PATHOLOGIST EMERGENCY WORKER OREN OWEN M.D.Performed By: #### BLAKE, CUU #### [place] [id number] USANo Panel InformationOrdered By: Willy Lambert on 32-39-5871Yuvkyypllspji Pathology TestSee commentSalem City HospitalComment on above:See report. Scanned copy available in EMR.Pathology Request for Lab Corpon 81-02-0565Gkuiofebs Request for Lab CorpNormalThTeton Valley Hospital Physician GroupComment on above:Order Comment: PATHOLOGY GI SPECIMEN Result Comment: See report. Scanned copy available in EMR. PERFORMED BY: [place] [id number] PATHOLOGIST EMERGENCY WORKER OREN OWEN M.D.Performed By: #### PATH TO [facility] #### [facility] [address] [place], [place] [address] USACholesterol [Mass/volume] in Serum or PlasmaOrdered By: Teo Al on 17-11-2806Tzkpttsonvz [Mass/Vol]91 mg/jZWly494-344KovxxmxduSalem City HospitalComment on above:Chol less than 200 mg/dl low riskChol 201-239 mg/dl borderline riskChol 240 mg/dl and greater high riskResult Comment: Chol less than 200 mg/dl low risk Chol 201-239 mg/dl borderline risk Chol 240 mg/dl and greater high riskPerformed By: #### ADDONUAPLUS, CUU #### [facility] [address] [place] [address] USACholesterol in LDL Calc [Mass/Vol]Ordered By: Teo Al on 93-91-6336Nlrktywjyov in LDL [Mass/Vol]37 mg/dL0-100Sal[facility] City HospitalComment on above:LDL ATP III CLASSIFICATIONLDL less than 100 mg/dL OptimalLDL 100-129 mg/dL Near or above vbjazokVXD937-019 mg/dL Borderline highLDL 160-189 mg/dL HighLDL greater than 189 mg/dL Very high Cholesterol in VLDL Calc [Mass/Vol]Ordered By: Teo Al on 12-26-2023 Cholesterol in VLDL [Mass/Vol]18 mg/dLSalem City HospitalLipid Panelon 73-48-4991OUW Cholesterol,Uhjqkkztyu53 mg/dLNormal0-100[facility] Physician [facility] VicksburgComment on above:Result Comment: LDL ATP III CLASSIFICATION LDL less than 100 mg/dL Optimal LDL 100-129 mg/dL Near or above optimal LDL 130-159 mg/dL Borderline high LDL 160-189 mg/dL High LDL greater than 189 mg/dL Very highPerformed By: #### HETALUAPLUS, CUU #### [facility] [address] [place] [address] USATriglyceride w/Rhkevt29 mg/dLNormal0-149[facility] Physician GroupComment on above:Result Comment: TRIG ATP III CLASSIFICATION TRIG less than 150 mg/dL Normal TRIG 150-199 mg/dL Borderline high TRIG 200-500 mg/dL High TRIG greater than 500 mg/dL Very high Standard traceable to the Center for Disease Conrtrol and Prevention (CDC) test method.Performed By: #### JESUSPLUS, CUU #### [place] [address] USAVLDL AYBQDJTBAHK24 mg/dLNoBlowing Rock Hospital Physician GroupComment on above:Performed By: #### BLAKE, CUU #### [place] [address] USASerum or plasma high density lipoprotein (HDL) cholesterol measurementOrdered By: Teo Al on 08-97-1240Ujbqsrofusf in HDL [Mass/Vol]35 mg/gFCbsgef19-11RqnszxfukSalem City HospitalComment on above: HDL CHOL ATP-III CLASSIFICATION Cardiovascular RiskHDL > or equal to 60 mg/dL LOWHDL < 40 mg/dL HIGHResult Comment: HDL CHOL ATP-III CLASSIFICATION Cardiovascular Risk HDL > or equal to 60 mg/dL LOW HDL < 40 mg/dL HIGHPerformed By: #### BLAKE, CUU #### [place] [address] USASerum or plasma total cholesterol/high density lipoprotein (HDL) cholesterol mass ratOrdered By: Teo Al on 12-26-2023 Cholesterol.total/Cholesterol in HDL [Mass ratio]2.6 {ratio}Normal<5.0Salem City HospitalComment on above:Result Comment: PERFORMED BY: [place] [address] PATHOLOGIST EMERGENCY WORKER OREN OWEN M.D.Performed By: #### BLAKE, CUU #### [address] [place] [address] USATriglyceride [Mass/volume] in Serum or PlasmaOrdered By: Teo Al on 25-37-8086Sbjieezpvggo [Mass/Vol]94 mg/dL0-149Sal[facility] City HospitalComment on above:TRIG ATP III CLASSIFICATIONTRIG less than 150 mg/dL NormalTRIG 150-199 mg/dL Borderline highTRIG 200-500 mg/dL High TRIG greater than 500 mg/dL Very highStandard traceable to the Center for Disease Conrtrol and Prevention (CDC) test method.Erythrocyte distribution width Auto (RBC) [Ratio]on 94-25-0182Kxxhrdeurup distribution width (RBC) [Ratio]15.4 %High11.0-15.0Sal[facility] City HospitalHematocrit Auto (Bld) [Volume fraction]on 76-52-8260Ttndjonlbf (Bld) [Volume fraction]41.3 %Low42.0-54.0 [facility] City HospitalHemoglobin [Mass/volume] in Bloodon 10-16-2023 Hemoglobin (Bld) [Mass/Vol]13.3 g/dLLow14.0-18.0Sal[facility] City HospitalLaboratory - Chemistry and Chemistry - challengeon 46-30-3969Nyvnzbkoh [Mass/Vol]2.1 mg/dL1.8-2.4FMedina HospitalUrate [Mass/Vol]5.9 mg/dL3.5-7.2FMedina HospitalLeukocytes [#/volume] corrected for nucleated erythrocytes in Blood by Automated counon 78-37-5465CFF corrected for nucl RBC Auto (Bld) [#/Vol]9.3 10 3/uL4.0-11.0[facility] MCH Auto (RBC) [Entitic mass]on 55-63-2868CGC (RBC) [Entitic mass]27.8 pg 25.9-34.0Sal[facility] City HospitalMCHC Auto (RBC) [Mass/Vol]on 13-70-2374OJYJ (RBC) [Mass/Vol]32.2 g/dL29.9-35.2FMedina HospitalMCV Auto (RBC) [Entitic vol]on 20-50-6122GRX (RBC) [Entitic vol]86.2 fL 80.0-94.0Sal[facility] City HospitalNo Panel Informationon 10-16-2023 Phosphorus Level2.7 mg/dL2.6-4.7FMedina HospitalPlatelet mean volume Auto (Bld) [Entitic vol]on 64-52-7390Qoelkckz mean volume (Bld) [Entitic vol]10.1 fL9.5-13.5FMedina HospitalPlatelets Auto (Bld) [#/Vol] on 33-36-2119Ougosdsjf (Bld) [#/Vol]197 10 3/rD171-747BfpuyopekSalem City HospitalRBC Auto (Bld) [#/Vol]on 46-45-5335VGG (Bld) [#/Vol]4.79 10 6/uL4.70-6.10 [facility] HospitalLaboratory - Chemistry and Chemistry - challengeon 63-92-6796Diqkdtqbd Ql (U)NegativeSalem City Hospital Glucose (U) [Mass/Vol]NegativeSalem City HospitalKetones Ql (U) NegativeSalem City HospitalpH (U)7.0 [pH][facility] - Youngstownpecific gravity (U) [Rel density]1.010Salem City HospitalUrobilinogen (U) [Mass/Vol]0.2 mg/dLSalem City Hospital Laboratory - Specimen informationon 76-56-3660Dltuj (U)LtYellowSalem City HospitalLaboratory - Urinalysison 36-30-6819Tokyemudw esterase Test strip Ql (U)LargeSalem City HospitalNitrite Ql (U)Positive [facility] City HospitalProtein Ql (U)30[facility] City HospitalCreatinine (Bld) [Mass/Vol]Ordered By: Margarito Valentine on 08-18-2023 Creatinine [Mass/Vol]2.4 mg/dL0.6-1.3FMedina HospitalComment on above:ER/ESD physician is notified/shown all ISTAT results.Critical values may be confirmed by laboratorytesting ifdeemed necessary by ER attending doctor.No Panel InformationOrdered By: Margarito Valentine on 31-84-0345Ffvojzq Estimated GFR (eGFR)26.776Salem City HospitalUS.doppler Lower extremity vein - righton 06-71-8571F[place] [address] Ultrasound Report Signed Patient: ALEX ANDERSON MR#: [id number] : 1945 Acct:[id number] Age/Sex: 77 / M ADM Date: 07/31/23 Loc: RAD Attending Dr: Shahriar Lewis M.D. Ordering Physician: Shahriar Lewis Date of Service: 07/31/23 Procedure(s): US venous doppler LE RT Accession Number(s): [id number] cc: Shahriar Lewis; STANLEY EMERSON [place] [id number] Patient Name: ALEX ANDERSON MRN: [id number] date: 1945 Sex: M Assigned Patient Location: [facility] Current Patient Location: [facility] Accession/Order Number: [id number] Exam Date: 07/31/2023 08:40 Report Date: 07/31/2023 10:47 At the request of: SHAHRIAR LEWIS Procedure: US venous doppler LE RT EXAMINATION: [...] the right lower extremity. Electronically authenticated by: LORENZO SCHERER Date: 07/31/2023 10:47 Dictated By: Lorenzo Scherer M.D. Signed By: 07/31/23 1050 DD/ 1047 TD/TT: Calibration Laboratory Technician:TBHRadiology, Radiologist, MD - 07/31/2023 [place] [address] Ultrasound Report Signed Patient: ALEX ANDERSON MR#: [id number] : 1945 Acct:[id number] Age/Sex: 77 / M ADM Date: 07/31/23 Loc: RAD Attending Dr: Shahriar Lewis M.D. Ordering Physician: Shahriar Lewis Date of Service: 07/31/23 Procedure(s): US venous doppler LE RT Accession Number(s): [id number] cc: Shahriar Lewis; STANLEY EMERSON [place] [id number] Patient Name: ALEX ANDERSON MRN: [id number]:[id number] date: 1945 Sex: M Assigned Patient Location: RAD Current Patient Location: RAD Accession/Order Number: [id number] Exam Date: 07/31/2023 08:40 Report Date: 07/31/2023 10:47 At the request of: SHAHRIAR LEWIS Procedure: US venous doppler LE RT EXAMINATION: [...] the right lower extremity. Electronically authenticated by: LORENZO SCHERER Date: 07/31/2023 10:47 Dictated By: Lorenzo Scherer M.D. Signed By: 07/31/23 1050 DD/ 1047 TD/TT: Calibration Laboratory Technician: MARSHAL HealthcareRadiology Study observation (narrative)LAKEVILLE HOSPITALAidee HealthcareUS.doppler Lower extremity vein - rightOrdered By: Radiologist Radiology on 62-11-7077FSDE [employer] Work Phone: alanine aminotransferase [Enzymatic activity/volume] in Serum or PlasmaOrdered By: Preston Griffin on 57-05-5751FYR [Catalytic activity/Vol]17 U/L7-52Salem City HospitalAlbumin [Mass/volume] in Serum or Plasma by Bromocresol green (BCG) dye binding methoOrdered By: Preston Griffin on 30-89-6993Bmxekaa BCG dye [Mass/Vol]4.2 g/dL3.5-5.7FMedina HospitalAlkaline phosphatase [Enzymatic activity/volume] in Serum or PlasmaOrdered By: Preston Griffin on 72-46-8427YCZ [Catalytic activity/Vol]72 U/L 34-104Salem City HospitalAspartate aminotransferase [Enzymatic activity/volume] in Serum or PlasmaOrdered By: Preston Griffin on 28-94-9020JPY [Catalytic activity/Vol]16 U/V06-18VwjugxtrkSalem City HospitalAutomated erythrocytes count in urine sediment (number/area)Ordered By: Preston Griffin on 31-84-8711LYG Auto (Urine sed) [#/Area]3-4 [HPF]0-4FMedina HospitalAutomated leukocytes count in urine sediment (number/area)Ordered By: Preston Griffin on 74-66-2321YXT Auto (Urine sed) [#/Area]50-100 [HPF]0-4FMedina HospitalBilirubin Test strip Ql (U)Ordered By: Preston Griffin on 84-78-1040Jyrugegwv Ql (U)NegativeNegativeSalem City Hospital Bilirubin.total [Mass/volume] in Serum or PlasmaOrdered By: Preston Griffin on 47-82-6514Uzbxonfbl [Mass/Vol]0.5 mg/dL0.3-1.0[facility] Calcium [Mass/volume] in Serum or PlasmaOrdered By: Preston Griffin on 04-08-2023 Calcium [Mass/Vol]9.3 mg/dL8.6-10.3FMedina HospitalCarbon dioxide, total [Moles/volume] in Serum or PlasmaOrdered By: Preston Griffin on 69-47-4801MQ2 [Moles/Vol]31.6 mmol/L21.0-31.0[facility] Chloride [Moles/volume] in Serum or PlasmaOrdered By: Preston Griffin on 04-08-2023 Chloride [Moles/Vol]107 mmol/Y42-320XyqdvxvwqSalem City HospitalCholesterol [Mass/volume] in Serum or PlasmaOrdered By: Teo Al on 04-08-2023 Cholesterol [Mass/Vol]107 mg/pM079-534GzxdormxzSalem City HospitalComment on above:Chol less than 200 mg/dl low riskChol 201-239 mg/dl borderline riskChol 240 mg/dl and greater high riskCholesterol in LDL Calc [Mass/Vol]Ordered By: Teo Al on 66-22-9955Akfwxnfykmk in LDL [Mass/Vol]47 mg/dL0-100[facility] HospitalComment on above:LDL ATP III CLASSIFICATIONLDL less than 100 mg/dL OptimalLDL 100-129 mg/dL Near or above mpcxlisCRW766-221 mg/dL Borderline highLDL 160-189 mg/dL HighLDL greater than 189 mg/dL Very high Cholesterol in VLDL Calc [Mass/Vol]Ordered By: Teo Al on 04-08-2023 Cholesterol in VLDL [Mass/Vol]26 mg/dLSalem City HospitalColor Auto (U)Ordered By: Preston Griffin on 95-56-7906Vafdj (U)YellowYellowSalem City HospitalCreatinine [Mass/volume] in Serum or PlasmaOrdered By: Preston Griffin on 73-32-9153Rbzkqihpgd [Mass/Vol]1.41 mg/dL0.70-1.30[facility] HospitalCreatinine [Mass/volume] in UrineOrdered By: Preston Griffin 36-18-0662Mlckcwmnew (U) [Mass/Vol]90.0 mg/dL14.0-26.0[facility] City HospitalErythrocyte distribution width Auto (RBC) [Ratio]Ordered By: Preston Griffin on 17-41-0119Riumblkxqeg distribution width (RBC) [Ratio]15.7 %12.0-14.8 [facility] HospitalFerritin [Mass/volume] in Serum or Plasma Ordered By: Preston Griffin on 30-81-3713Ywjyrvmm [Mass/Vol]34.1 ng/mL23.9-336.2 [facility] HospitalFolate [Mass/volume] in Serum or PlasmaOrdered By: Preston Griffin on 80-10-4677Aebkbe [Mass/Vol]34.0 ng/mL>5.9[facility] City HospitalComment on above:Folate reference range: >5.9 ng/mlThe WHO technical consultation on folate and vitamin f12zvztnktoieiu has determined that folate concentrations lessthan 4 ng/ml are considered deficient.Globulin Calc (S) [Mass/Vol]Ordered By: Preston Griffin on 81-02-7317Gdfnvkrt (S) [Mass/Vol]2.8 g/dLSalem City HospitalGlucose [Mass/volume] in Serum or Plasma Ordered By: Preston Griffin 26-83-3904Guddspw [Mass/Vol]107 mg/gD59-387TzyjuxfwvSalem City HospitalComment on above:ADA recommended reference rangeRandom Glucose Reference Range is dependent on time and content of last meal. Glucose of more than 200 mg/dL in a nonstressed, ambulatory subject supports the diagnosisof Diabetes Mellitus.Hematocrit Auto (Bld) [Volume fraction]Ordered By: Preston Griffin 25-35-5363Lztjexubxn (Bld) [Volume fraction]43.8 %38.8-50.0 [facility] HospitalHemoglobin [Mass/volume] in BloodOrdered By: Preston Griffin 88-91-3946Asykijujek (Bld) [Mass/Vol]14.3 g/dL13.0-17.0[facility] HospitalIron [Mass/volume] in Serum or PlasmaOrdered By: Pretson Griffin 32-61-2487Cqbo [Mass/Vol]53 ug/yQ87-274HqpwenlmxSalem City HospitalIron binding capacity [Mass/volume] in Serum or PlasmaOrdered By: Preston Griffin 38-36-8069Wume binding capacity [Mass/Vol]370 ug/zT863-338ZlpqdixuqSalem City HospitalIron saturation [Mass Fraction] in Serum or PlasmaOrdered By: Preston Griffin 28-16-8161Ioan saturation [Mass fraction]14.3 %20-50 [facility] HospitalKetones Auto test strip (U) [Mass/Vol]Ordered By: Preston Griffin 10-64-7727Nhmrivt (U) [Mass/Vol]NegativeNegativeSalem City HospitalLaboratory - UrinalysisOrdered By: Preston Griffin 76-94-3150Ktvcvsq casts LM Ql (Urine sed)- [LPF]0-8Sal[facility] City HospitalLeukocytes [#/volume] corrected for nucleated erythrocytes in Blood by Automated counOrdered By: Preston Griffin on 98-20-1285SFZ corrected for nucl RBC Auto (Bld) [#/Vol]8.4 10*3/uL4.1-10.5FAdams County Regional Medical CenterH Auto (RBC) [Entitic mass]Ordered By: Preston Griffin on 64-29-5516OXM (RBC) [Entitic mass]27.3 pg27.5-35.2FMedina HospitalMCHC Auto (RBC) [Mass/Vol] Ordered By: Preston Griffin on 29-83-2807DXMI (RBC) [Mass/Vol]32.6 g/dL32.5-35.6 [facility] HospitalMCV Auto (RBC) [Entitic vol]Ordered By: Preston Griffin on 31-96-0962TMO (RBC) [Entitic vol]83.8 fL83.5-101Sal[facility] HospitalMagnesium [Mass/volume] in Serum or PlasmaOrdered By: Preston Griffin on 22-15-7314Zbkewjqua [Mass/Vol]2.2 mg/dL1.9-2.7FMedina HospitalNitrite Test strip Ql (U)Ordered By: Preston Griffin on 80-36-2967Lrthtvn Ql (U)PositiveNegativeSalem City HospitalNo Panel InformationOrdered By: Preston Griffin on 01-81-9260Rijcipgso GFR (CKD-EPI)50.692 mL/MinSalem City HospitalPharmacy Creatinine Clearance (ChemN/AFMedina HospitalParathyrin.intact [Mass/volume] in Serum or PlasmaOrdered By: Preston Griffin on 62-69-0538Nfbzdhfykf.intact [Mass/Vol]76.6 pg/zS37-23GkrjysmsjSalem City HospitalPhosphate [Mass/volume] in Serum or PlasmaOrdered By: Preston Griffin on 89-18-7404Fikedahag [Mass/Vol]2.8 mg/dL2.5-4.5FMedina HospitalPlatelet mean volume Auto (Bld) [Entitic vol]Ordered By: Preston Griffin on 17-72-3157Kopkbdbh mean volume (Bld) [Entitic vol]8.6 fL6.6-10.1 [facility] HospitalPlatelets Auto (Bld) [#/Vol]Ordered By: Preston Griffin on 25-30-7361Glkhufzxq (Bld) [#/Vol]201 10*3/qS552-037OtwlaaaykSalem City HospitalPotassium [Moles/volume] in Serum or PlasmaOrdered By: Preston Griffin on 55-87-0522Apeczbcos [Moles/Vol]4.5 mmol/L3.5-5.1FMedina HospitalProtein Auto test strip (U) [Mass/Vol]Ordered By: Preston Griffin on 43-86-8024Uogqugs (U) [Mass/Vol]Trace mg/dLNegativeSalem City HospitalProtein [Mass/volume] in Serum or PlasmaOrdered By: Preston Griffin on 81-77-5710Ewrztbo [Mass/Vol]7.0 g/dL6.4-8.9[facility] Protein [Mass/volume] in UrineOrdered By: Preston Griffin on 55-90-1120Hnbqiwi (U) [Mass/Vol]30 mg/dL0-9[facility] HospitalRBC Auto (Bld) [#/Vol] Ordered By: Preston Griffin on 65-57-3575HUC (Bld) [#/Vol]5.22 10*6/uL3.90-5.60 [facility] - Youngstownerum or plasma albumin/globulin mass ratio Ordered By: Preston Griffin on 24-79-0244Kfaandk/Globulin [Mass ratio]1.5 {ratio} [facility] Youngstownerum or plasma anion gap determinationOrdered By: Preston Griffin on 10-71-1048Lqdxj gap [Moles/Vol]8.9 mmol/L6.0-15.0[facility] - Youngstownerum or plasma high density lipoprotein (HDL) cholesterol measurementOrdered By: Teo Al on 24-19-6077Mwvclwrxyqx in HDL [Mass/Vol]34 mg/dY91-65KcdpujpaiSalem City HospitalComment on above:HDL CHOL ATP-III CLASSIFICATION Cardiovascular RiskHDL > or equal to 60 mg/dL LOWHDL < 40 mg/dL HIGHSerum or plasma total cholesterol/high density lipoprotein (HDL) cholesterol mass ratOrdered By: Teo Al on 04-08-2023 Cholesterol.total/Cholesterol in HDL [Mass ratio]3.1 {ratio}<5.0[facility] Hospital - Youngstownodium [Moles/volume] in Serum or PlasmaOrdered By: Preston Griffin on 17-74-0649Dxffqp [Moles/Vol]143 mmol/G880-657FrzfgkecrSelect Medical Specialty Hospital - Youngstownpecific gravity Auto test strip (U) [Rel density]Ordered By: Preston Griffin on 73-29-3311Nhfvuobd gravity (U) [Rel density]1.0171.001-1.030[facility] Hospital - Youngstownquamous epithelial cells detection in urine sediment by light microscopyOrdered By: Preston Griffin on 90-78-2677Kvqhxfnzan cells.squamous LM Ql (Urine sed)0-1 [HPF]0-2FMedina HospitalTransferrin [Mass/volume] in Serum or PlasmaOrdered By: Preston Griffin on 04-08-2023 Transferrin [Mass/Vol]264 mg/yS168-024GppdwmeqpSalem City Hospital Triglyceride [Mass/volume] in Serum or PlasmaOrdered By: Teo Al on 81-50-2152Wownfvafwzwd [Mass/Vol]131 mg/dL0-149[facility] Comment on above:TRIG ATP III CLASSIFICATIONTRIG less than 150 mg/dL NormalTRIG 150-199 mg/dL Borderline highTRIG 200-500 mg/dL High TRIG greater than 500 mg/dL Very highStandard traceable to the Center for Disease Conrtrol and Prevention (CDC) test method.Urate [Mass/volume] in Serum or PlasmaOrdered By: Preston Griffin on 07-43-4256Ybgyl [Mass/Vol]6.0 mg/dL4.4-7.6FMedina Hospital Urea nitrogen [Mass/volume] in Serum or PlasmaOrdered By: Preston Griffin on 12-16-5670Rbhf nitrogen [Mass/Vol]27 mg/dL7-25[facility] Urine bacteria detection by automated methodOrdered By: Preston Griffin on 66-63-2418Idleqrgu Auto Ql (U)4+None SeenSalem City HospitalUrine clarity by refractometry automatedOrdered By: Preston Griffin on 72-89-1553Sywjxbg Refractometry automated (U)CloudyCleOhioHealth Dublin Methodist HospitalUrine glucose measurement by automated test strip (mass/volume)Ordered By: Preston Griffin on 19-56-0090Kqtfcmq Auto test strip (U) [Mass/Vol]Normal mg/dLSelect Medical Ohiohealth Rehabilitation HospitalUrine hemoglobin detection by automated test stripOrdered By: Preston Griffin on 75-54-3034Gdsmhosutz Auto test strip Ql (U)1+ NegativeSalem City HospitalUrine leukocyte esterase detection by automated test stripOrdered By: Preston Griffin on 77-22-6042Doqhztphx esterase Auto test strip Ql (U)4+NegativeSalem City HospitalUrine protein/creatinine ratioOrdered By: Preston Griffin on 86-41-5423Syjxsqx/Creatinine (U) [Ratio]333 mg/g{Cre}0-200Sal[facility] City HospitalUrobilinogen Auto test strip (U) [Mass/Vol]Ordered By: Preston Griffin on 69-11-2406Kduveldfgczt (U) [Mass/Vol]Normal mg/dLNoMarietta Osteopathic ClinicVitamin B12 ser/plasOrdered By: Preston Griffin on 24-83-7219Riivfvfms (Vitamin B12) [Mass/Vol] 301 pg/hR317-971RpvkykgioSalem City HospitalVitamin D+Metabolites [Mass/volume] in Serum or PlasmaOrdered By: Preston Griffin on 15-74-7590Dpwovzz D+Metabolites [Mass/Vol]37.5 ng/yL17-201MaqqkathaSalem City HospitalComment on above:VITAMIN D STATUS 25(OH)VITAMIN D RANGE (ng/mL) Deficient <20 Insufficient 20 to <32Ujhdiqxiys02 to 100Reference: Sixto MF,Federico NC, Palomo LESLIE, et al. Evaluation,treatment, and prevention of vitamin D deficiency; an Endocrine Society clinical practice guideline. JCEM. 2010; 96 (7):1911-30.pH Auto test strip (U)Ordered By: Preston Griffin on 63-88-5697eX (U) 7.0 [pH]5.0-9.0Sal[facility] City HospitalOffice Visit (Cardiology)on 44-79-4373Qixxds-up visitDiagnoses/Problems Assessed Hypertension (401.9) (I10) Dyslipidemia (272.4) [...] Lipid Panel; Status:Active - Retrospective Authorization; Requested for:[id number]; Overweight with body mass index (BMI) of [...] we can help. You may also call 1-488-SKHN-NOW for free resources and assistance.; Status:Complete - Retrospective Authorization; Done: 22Jan2023 Tobacco Use Screening; Status:Complete; Done: [id number] Patient Instructions Please bring all medicines, vitamins, [...] negative for complaint. Vitals Vital Signs Recorded: [id number] 09:57AM Heart Rate72, L Radial Rbfowynp076, LUE, Sitting Zbyorfecy96, LUE, Sitting Height6 ft 2 in Ipscjh738 lb BMI Hyknbtftte94.35 kg/m2 BSA Calculat (more content not included)...NormalUH TouchworksTobacco Screening. on 09-05-7576Twwm risk assessmenta) No falls within the last yearDo[facility] Hospital imgfave DO Work Phone: Tobacco use status CPHSa) YesDoctors Hospital [email or web address] DO Work Phone: ToTap 'n Tapcco Screening.YesDoctors Hospital imgfave DO Work Phone: CULTURE URINEon 13-54-0529CZHFQIO URINEIsolate 1 Pseudomonas aeruginosa >100,000 cfu/mL of ORGANISM 1 Pseudomonas aeruginosa ANTIBIOTIC M.I.C RX STATUS Piperacillin/Tazobactam <=4 S F Ceftazidime <=1 S F Imipenem 2 S F Amikacin <=2 S F Gentamicin 2 S F Tobramycin <=1 S F Ciprofloxacin <=0.25 S F Levofloxacin <=0.12 S FNormalOhiohealth Doctors HospitalComment on above:Performed By: #### URTPCR #### [facility] [address] [place] [id number] [address] Karen Flores, URINARYon ,8 DihydroxyadenLake County Memorial Hospital - WestComment on above:Performed By: #### UA #### [facility] [address] [address] [address] Karen PierceAmmonium Acid UrateNormalTrinity Health System Twin City Medical Centerment on above: Performed By: #### UA #### [facility] [address] [address] [address] Karen PierceBilirubin Ql (U)SCCI Hospital LimaComment on above: Performed By: #### UA #### [facility] [address] [address] [address] Karen PierceCa Oxalate DihydrateNormalOhiohealth Doctors HospitalComment on above: Performed By: #### UA #### [facility] [address] [address] [address] Karen BergeronHPO4 (Brushite)[facility] Hospital LimaComharper university hospital on above: Performed By: #### UA #### [facility] [address] [address] [address] Karen Graceium BilirubinateNLima Memorial Hospital on above: Performed By: #### UA #### [facility] [address] [address] [address] Karen PierceCalcium CarbonateNoProMedica Bay Park Hospital on above: Performed By: #### UA #### [facility] [address] [address] [address] Karen Graceium Oxalate Toqwtgkcfeq731 %[facility] on above:Performed By: #### UA #### [facility] [address] [address] [address] Karen PierceCalcium PalmitateNoProMedica Bay Park Hospital on above: Performed By: #### UA #### [facility] [address] [address] [address] Karen PierceCalcium PhosphateNoProMedica Bay Park Hospital on above: Performed By: #### UA #### [facility] [address] [address] [address] Karen PierceCalcium StearateNLima Memorial Hospital on above: Performed By: #### UA #### [facility] [address] [address] [address] Karen Bond ApatiteSCCI Hospital LimaComment on above: Performed By: #### UA #### [facility] [address] [address] [address] Karen Pinoular MaterialKettering Health [facility] on above: Performed By: #### UA #### [facility] [address] [address] [address] Karen PierceCholesterolKettering Health Troy on above:Performed By: #### UA #### [facility] [address] [address] [address] Karen Salomon (U)BrownSCCI Hospital LimaComharper university hospital on above: Performed By: #### UA #### [facility] [address] [place] [address] Dr. Karen EastonmentKettering Health Troy on above:Performed By: #### UA #### [facility] [address] [place] [address] Dr. Karen Ragland:CommentKettering Health Troy on above:Result Comment: Physician questions regarding Calculi Analysis contact LabMercy [facility]cc[facility] at: [phone].Performed By: #### UA #### [facility] [address] [place] [address] Dr. Karen EastonpositionCommentKettering Health Troy on above: Result Comment: Percentage (Represents the % composition)Performed By: #### UA #### [facility] [address] [place] [address] Dr. Karen PierceCystineKettering Health Troy on above:Performed By: #### UA #### [facility] [address] [place] [address] Dr. Karen Parksmer:CommentKettering Health Troy on above: Result Comment: This test was developed and its performance characteristics determined by [facility]. It has not been cleared or approved by the Food and Drug Administration.Performed By: #### UA #### [facility] [address] [address] [address] Karen Mayorgaied BloodSCCI Hospital LimaComment on above:Performed By: #### UA #### [facility] [address] [address] [address] Karen PierceDrug or MetaboliteSCCI Hospital LimaComharper university hospital on above: Performed By: #### UA #### [facility] [address] [address] [address] Karen PierceHydroxyapatiteKettering Health Troy on above: Performed By: #### UA #### [facility] [address] [address] [address] Karen PierceMg NH4 PO4 (Struvite)[facility] on above: Performed By: #### UA #### [facility] [address] [address] [address] Karen PierceMgHPO4 (Newberyite)[facility] on above: Performed By: #### UA #### [facility] [address] [address] [address] Karen PierceOther component(s)[facility] on above: Performed By: #### UA #### [facility] [address] [address] [address] Karen GamezF.[facility] on above:Performed By: #### UA #### [facility] [address] [address] [address] Karen PiercePhotoCommentKettering Health Troy on above:Result Comment: Photograph will follow under a separate coverPerformed By: #### UA #### [facility] [address] [address] [address] Karen Rubin note:[facility] on above: Result Comment: Calculi report will follow via computer, mail or outside barrel lathe operator delivery.Performed By: #### UA #### [facility] [address] [address] [address] Karen MerrillJfhpzPaop8y0IutocfAbuKettering Health Troy on above:Result Comment: Multiple pieces received. Dimensions of the largest piece reported.Performed By: #### UA #### [facility] [address] [address] [address] Karen Elliottdium Acid UrateNormalLima Memorial Hospital on above: Performed By: #### UA #### [facility] [address] [address] [address] Karen ElliotturceComOhioHealth on above:Result Comment: Urinary BladderPerformed By: #### UA #### [facility] [address] [place] [address] Dr. Karen MolinaiamtereCleveland Clinic Hillcrest Hospital on above:Performed By: #### UA #### [facility] [address] [place] [address] Dr. Karen Carnes AcidKettering Health Troy on above:Performed By: #### UA #### [facility] [address] [place] [address] Dr. Karen PierceUric Acid DihydrateNLima Memorial Hospital on above: Performed By: #### UA #### [facility] [address] [address] [address] Karen Sandoval158 [facility] on above:Performed By: #### UA #### [facility] [address] [address] [address] Karen RamireznthiCleveland Clinic Hillcrest Hospital on above:Performed By: #### UA #### [facility] [address] [place] [address] Dr. Karen Ryder URINE PROFILEon [id number] Ql (U)NegativeNormal NEGATIVELima Memorial Hospital on above:Performed By: #### TAMIE MESA #### [facility] [address] [address] [address] Karen PierceClarity (U)CLEARNormalCLEARThe Eva HospitalComment on above: Performed By: #### BONITA, ERUR #### [facility] [address] [address] [address] Karen Salomon (U)YELLOWNormalYELLOWOhiohealth Doctors HospitalComment on above: Performed By: #### BONITA, ERUR #### [facility] [address] [address] [address] Karen Daigle micrscopic examination will be performed if indicated. NormalOhiohealth Doctors HospitalComment on above:Performed By: #### BONITA, ERUR #### [facility] [address] [address] [address] Karen PierceGlucose Ql (U)NegativeNormalNEGATIVEOhiohealth Doctors HospitalComment on above:Performed By: #### BONITA, ERUR #### [facility] [address] [address] [address] Karen PierceHemoglobin Ql (U)LARGEAbnormalNEGPremier Health Upper Valley Medical Center Comment on above:Performed By: #### BONITA, ERUR #### [facility] [address] [address] [address] Karen Goldenones Ql (U)NegativeNormalNEGATIVEOhiohealth Doctors HospitalComment on above:Performed By: #### BONITA, ERUR #### [facility] [address] [address] [address] Karen PierceLEUKOCYTESLARGEAbnormalNEGATIVEOhiohealth Doctors HospitalComment on above:Performed By: #### BONITA, ERUR #### [facility] [address] [address] [address] Karen PierceNitrite Ql (U)PositiveAbnormalNEGPremier Health Upper Valley Medical Center Comment on above:Performed By: #### BONITA, ERUR #### [facility] [address] [address] [address] Karen PiercepH (U)5.5 [pH]Normal5-9Ohiohealth Doctors HospitalComment on above: Performed By: #### BONITA, ERUR #### [facility] [address] [address] [address] Karen PierceProtein (U) [Mass/Vol]100 mg/dLAbnormalNEGATIVE/ TRACEThe [facility] HospitalComment on above:Performed By: #### BONITA, ERUR #### [facility] [address] [address] [address] Karen PierceSPEC GRAVITY1.248Kziqkc2.005-<=1.025The [facility] HospitalComment on above:Performed By: #### BONITA, ERUR #### [facility] [address] [place] [address] Dr. Karen Moulton MICRO INDINDICATEDNoSelect Medical OhioHealth Rehabilitation HospitalComment on above: Performed By: #### BONITA, ERUR #### [facility] [address] [place] [address] Dr. Karen Hernandez Qn (U)1.0 {Tonio'U}/dLNormal0.2 - 1.0The [facility] HospitalComment on above:Performed By: #### BONITA ERUR #### [facility] [address] [address] [address] Karen Vázquez MICROSCOPIC ONLYon [id number]E SEEN The [facility] HospitalComharper university hospital on above:Performed By: #### BONITA, ERUR #### [facility] [address] [place] [address] Dr. Karen Hunt identified Cx Nom (U)INDICATEDNoSelect Medical OhioHealth Rehabilitation HospitalComment on above:Performed By: #### BONITA, ERUR #### [facility] [address] [place] [address] Dr. Karen Patterson SEENNormalNONE SEENLima Memorial Hospital on above:Performed By: #### BONITA, ERUR #### [facility] [address] [place] [address] Dr. Karen Jade LM Nom (Urine sed)NONE SEENNormalNONE SEENThe [facility] Crossing HospitalComment on above:Performed By: #### BONITA, ERUR #### [facility] [address] [place] [address] Dr. Jones ChangEpithelial cells LM Ql (Urine sed)NONE SEENNormalNONE SEEN /RARE The [facility] HospitalComharper university hospital on above:Performed By: #### BONITA, ERUR #### [facility] [address] [place] [address] Dr. Karen PierceMUCOUSNONE SEENNormalNONE SEENThe [facility] HospitalComment on above:Performed By: #### BONITA ERUR #### [facility] [address] [place] [address] Dr. Karen SanchezC (U) [#/Vol]/uLAbnormal0-2The [facility] on above:Performed By: #### BONITA ERUR #### [facility] [address] [place] [address] Dr. Karen PierceRcqgyBQW30-25VrtvsdxoLCQM SEENOhiohealth Doctors HospitalComharper university hospital on above: Performed By: #### BONITA ERUR #### [facility] [address] [place] [address] Dr. Karen Jung INTACTon [id number], Qhsndj45 pg/cLFfwaah75-11Fhl [facility] on above:Performed By: #### PTHINT #### [facility] [address] [place] [address] Dr. Karen PierceFERRITINon [id number] [Mass/Vol]49.0 ng/mLNormal 26.0-388.0The [facility] HospitalComment on above:Performed By: #### URTPCR #### [facility] [address] [place] [address] Dr. Karen Simms AND TIBCon 09-04-2022% SXHHPJVDHZ62.3 %NormalThe [facility] HospitalComharper university hospital on above:Performed By: #### URTPCR #### [facility] [address] [place] [address] Dr. Karen Simms [Mass/Vol]33.0 ug/dLCritically low65.0-175.0Ohiohealth Doctors HospitalComment on above:Performed By: #### URTPCR #### [facility] [address] [place] [address] Dr. Karen Varela MEHYEZ616.0 ug/lTEzznxl042.0-450.0[facility] Comment on above:Performed By: #### URTPCR #### [facility] [address] [place] [address] Dr. Karen Lanier RANDOMon 42-38-5872Shipkismy Ql (U)NegativeNormalNEGATIVEOhiohealth Doctors HospitalComment on above:Performed By: #### UA #### [facility] [address] [place] [address] Dr. Karen Yang (U)CLEARNormalCLEAROhiohealth Doctors HospitalComment on above: Performed By: #### UA #### [facility] [address] [place] [address] Dr. Karen Salomon (U)LT. YELLOWNormalYELLOWOhiohealth Doctors HospitalComment on above:Performed By: #### UA #### [facility] [address] [place] [address] Dr. Karen PierceGlucose Ql (U)NegativeNormalNEGATIVEOhiohealth Doctors HospitalComment on above:Performed By: #### UA #### [facility] [address] [place] [address] Dr. Karen PierceHemoglobin Ql (U)MODERATEAbnormalNEGPremier Health Upper Valley Medical Center Comment on above:Performed By: #### UA #### [facility] [address] [place] [address] Dr. Karen PierceKetones Ql (U)NegativeNormalNEGATIVEOhiohealth Doctors HospitalComment on above:Performed By: #### UA #### [facility] [address] [place] [address] Dr. Karen PierceLEUKOCYTESLARGEAbnormalNEGPremier Health Upper Valley Medical CenterComment on above:Performed By: #### UA #### [facility] [address] [address] [address] Karen Jones Ql (U)PositiveAbnormalNEGATIVEOhiohealth Doctors Hospital Comment on above:Performed By: #### UA #### [facility] [address] [place] [address] Dr. Karen PiercepH (U)6.5 [pH]Normal5-9The [facility] HospitalComment on above: Performed By: #### UA #### [facility] [address] [place] [address] Dr. Karen PierceSPEC GRAVITY1.571Kohexv7.005-<=1.025The [facility] HospitalComment on above:Performed By: #### UA #### [facility] [address] [place] [address] Dr. Karen Lanier GKDALTJ37 mg/dlAbnormalNEGATIVE/ TRACEThe [facility] Comment on above:Performed By: #### UA #### [facility] [address] [place] [address] Dr. Karen Wangbilrobgen Qn (U)0.2 {Tonio'U}/dLNormal0.2 - 1.0The [facility] HospitalComment on above:Performed By: #### UA #### [facility] [address] [place] [address] Dr. Karen Vázquez T PROTEIN CREAT RATIOon 52-45-4110Srbuxhg (U) [Mass/Vol] 65.2 mg/dLCritically high<=12.0The [facility] HospitalComment on above:Performed By: #### URTPCR #### [facility] [address] [place] [address] Dr. Karen Moulton PROT CREAT RAT0.76NormalThe [facility] HospitalComment on above: Performed By: #### URTPCR #### [facility] [address] [place] [address] Dr. Karen Vázquez CREAT85.95 mg/hZGwmrgu80.00-300.00[facility] Comment on above:Performed By: #### URTPCR #### [facility] [address] [place] [address] Dr. Karen Ruffin B12 AND FOLATEon 37-39-8520Bvwfqwxcv (Vitamin B12) [Mass/Vol] 279.0 pg/uEKjbgjj028.0-986.0The [facility] HospitalComment on above:Performed By: #### URTPCR #### [facility] [address] [place] [address] Dr. Karen PierceFOLATE17.80 ng/mLNormal8.60-58.90The [facility] HospitalComment on above:Performed By: #### URTPCR #### [facility] [address] [place] [address] Dr. Karen PierceVITAMIN D 25 OHon 82-76-2435QGT D 25-OH29.9 ng/mLNormalThe [facility] HospitalComment on above:Performed By: #### URTPCR #### [facility] [address] [place] [address] Dr. Karen Ruffin D RANGESSEE [facility] HospitalComment on above: Result Comment: <20 ng/mL Vit D deficient 20 - <30 ng/mL Vit D insufficient 30 - 100 ng/mL Vit D sufficient >100 ng/mL Potential ToxicityPerformed By: #### URTPCR #### [facility] [address] [place] [address] Dr. Karen EdgeC AUTO DIFFon [id number] #0.1 103/ulNormal0.0-0.1The [facility] HospitalComment on above:Performed By: #### CBC #### [facility] [address] [place] [address] Dr. Karen PierceBasophils/100 WBC (Bld)0.7 %Normal0.2-2.0[facility] Comment on above:Performed By: #### CBC #### [facility] [address] [place] [address] Dr. Jones ChangEO #0.2 103/ulNormal0.0-0.7The [facility] HospitalComment on above: Performed By: #### CBC #### [facility] [address] [address] [address] Karen Reyesosinophils/100 WBC (Bld)2.6 %Normal0.9-7.0The [facility] Comment on above:Performed By: #### CBC #### [facility] [address] [place] [address] Dr. Karen Reyesrythrocyte distribution width (RBC) [Ratio]13.8 %Jzokew89.0-15.0 The [facility] HospitalComment on above:Performed By: #### CBC #### [facility] [address] [place] [address] Dr. Karen PierceHematocrit (Bld) [Volume fraction]38.9 %Critically low42.0-54.0 [facility] Doctors HospitalComment on above:Performed By: #### CBC #### [facility] [address] [place] [address] Dr. Karen PierceHemoglobin (Bld) [Mass/Vol]12.3 g/dLCritically low14.0-18.0The [facility] HospitalComment on above:Performed By: #### CBC #### [facility] [address] [place] [address] Dr. Karen Ayala #0.01 10e3/ulNormal0.00-0.03The [facility] HospitalComment on above:Performed By: #### CBC #### [facility] [address] [place] [address] Dr. Karen Ayala %0.1 %Normal0.0-0.5The [facility]y Hospitalment on above: Performed By: #### CBC #### [facility] [address] [place] [address] Dr. Karen BrandtH #1.9 103/ulNormal1.2-3.8The [facility] HospitalComment on above:Performed By: #### CBC #### [facility] [address] [place] [address] Dr. Karen Kimmphocytes/100 WBC (Bld)27.0 %Owybfy57.5-60.0The [facility] HospitalComment on above:Performed By: #### CBC #### [facility] [address] [place] [address] Dr. Karen Figueroa DIFF REQNONormalThe [facility] HospitalComment on above: Performed By: #### CBC #### [facility] [address] [place] [address] Dr. Karen Michael (RBC) [Entitic mass]27.8 mdXigish94.9-34.0The [facility] Cross[facility] HospitalComment on above:Performed By: #### CBC #### [facility] [address] [place] [address] Dr. Karen Michael (RBC) [Mass/Vol]31.6 g/kPIvgwnz43.9-35.2The [facility] HospitalComment on above:Performed By: #### CBC #### [facility] [address] [place] [address] Dr. Karen Michael (RBC) [Entitic vol]87.8 aQTuuqnd44.0-94.0The [facility] HospitalComment on above:Performed By: #### CBC #### [facility] [address] [place] [address] Dr. Karen Monteiro #0.6 103/ulNormal0.3-0.8The [facility] HospitalComment on above:Performed By: #### CBC #### [facility] [address] [place] [address] Dr. Karen Elizabethocytes/100 WBC (Bld)8.8 %Normal1.7-12.0The [facility] Comment on above:Performed By: #### CBC #### [facility] [address] [place] [address] Dr. Karen Cronin #4.4 103/ulNormal1.4-6.5The [facility] HospitalComment on above:Performed By: #### CBC #### [facility] [address] [place] [address] Dr. Karen Padillautrophils/100 WBC (Bld)60.8 %Ighyos35.0-75.0The [facility] HospitalComment on above:Performed By: #### CBC #### [facility] [address] [place] [address] Dr. Karen Amandalet mean volume (Bld) [Entitic vol]9.9 fLNormal9.5-13.5The [facility] HospitalComment on above:Performed By: #### CBC #### [facility] [address] [place] [address] Dr. Karen PiercePLT181 103/gqDmmuwf660-697Rqa [facility] HospitalComment on above: Performed By: #### CBC #### [facility] [address] [place] [address] Dr. Karen PierceRBC4.43 106/ulCritically low4.70-6.10The [facility] HospitalComment on above:Performed By: #### CBC #### [facility] [address] [place] [address] Dr. Karen PierceWBC7.2 103/ulNormal4.0-11.0The [facility] HospitalComment on above: Performed By: #### CBC #### [facility] [address] [place] [address] Dr. Karen PierceMAGNESIUMon 01-65-5312Odniosggz [Mass/Vol]2.2 mg/dLNormal1.8-2.4 The [facility] HospitalComment on above:Performed By: #### UA #### [facility] [address] [place] [address] Dr. Karen PiercePHOSPHORUSon 55-75-6149Ntdtwwffg [Mass/Vol]2.9 mg/dLNormal2.6-4.7 The [facility] HospitalComment on above:Performed By: #### UA #### [facility] [address] [place] [address] Dr. Karen Leos 14(COMP METB)on 98-72-8225Ughswws [Mass/Vol]3.5 g/dLNormal 3.4-5.0The [facility] HospitalComment on above:Performed By: #### PTHINT #### [facility] [address] [address] [address] Karen PierceAlbumin/Globulin [Mass ratio]1.0 {ratio}NormalThe [facility] HospitalComment on above:Performed By: #### PTHINT #### [facility] [address] [address] [address] Karen RamirezP [Catalytic activity/Vol]86 U/ESigmza78-313Twj [facility] HospitalComment on above:Performed By: #### PTHINT #### [facility] [address] [address] [address] Karen RamirezT [Catalytic activity/Vol]17 U/KBmjqrh40-58Ism [facility] HospitalComment on above:Performed By: #### PTHINT #### [facility] [address] [place] [address] Dr. Karen Sandyon gap [Moles/Vol]13.0 mmol/LNormalThe [facility] Comment on above:Performed By: #### PTHINT #### [facility] [address] [place] [address] Dr. Karen PierceAST [Catalytic activity/Vol]14 U/LCritically mlr08-38Car [facility] HospitalComharper university hospital on above:Performed By: #### PTHINT #### [facility] [address] [place] [address] Dr. Karen PierceBilirubin [Mass/Vol]0.3 mg/dLNormal0.2-1.0The [facility] Comment on above:Performed By: #### PTHINT #### [facility] [address] [place] [address] Dr. Karen PierceCO2 [Moles/Vol]27.6 mmol/ZIveeud52.0-32.0The [facility] Comment on above:Performed By: #### PTHINT #### [facility] [address] [place] [address] Dr. Karen PierceCreatinine [Mass/Vol]1.48 mg/dLCritically high0.70-1.30The [facility] on above:Performed By: #### PTHINT #### [facility] [address] [address] [address] Karen ReyesGFR-AF HAIAPAYE68 mL/min/1.47l1Pppytijlsv low>=60The [facility] HospitalComment on above:Performed By: #### PTHINT #### [facility] [address] [address] [address] Karen ReyesGFR-NON AF NFOSJGHA84 mL/min/1.44u4Tlyhgthgio low>=60The [facility] HospitalComment on above:Performed By: #### PTHINT #### [facility] [address] [address] [address] Karen PierceGlobulin (S) [Mass/Vol]3.6 g/dLSCCI Hospital LimaComment on above:Performed By: #### PTHINT #### [facility] [address] [place] [address] Dr. Karen PierceGlucose [Mass/Vol]105 mg/vGIytbqz34-021YinOhiohealth Doctors Hospital Comment on above:Performed By: #### PTHINT #### [facility] [address] [address] [address] Karen PierceProtein [Mass/Vol]7.1 g/dLNormal6.4-8.2[facility] Comment on above:Performed By: #### PTHINT #### [facility] [address] [address] [address] Karen PierceSodium [Moles/Vol]142 mmol/NWqoncw402-596IulOhiohealth Doctors Hospital Comment on above:Performed By: #### PTHINT #### [facility] [address] [address] [address] Karen PierceUrea nitrogen/Creatinine [Mass ratio]16.2 mg/mgNoSelect Medical OhioHealth Rehabilitation HospitalComment on above:Performed By: #### PTHINT #### [facility] [address] [address] [address] Karen PiercePROF CHEM 8 (BAS METB)on 66-01-3062Fbasl gap [Moles/Vol]11.1 mmol/LNormalThe [facility] HospitalComment on above:Performed By: #### UA #### [facility] [address] [address] [address] Karen PierceCalcium [Mass/Vol]8.7 mg/dLNormal8.5-10.1[facility] Comment on above:Performed By: #### UA #### [facility] [address] [place] [address] Dr. Karen PiercePerformed By: #### PTHINT #### [facility] [address] [place] [address] Dr. Karen PierceChloride [Moles/Vol]106 mmol/NGzuixc83-180Jpt [facility] Comment on above:Performed By: #### UA #### [facility] [address] [place] [address] Dr. Karen PiercePerformed By: #### PTHINT #### [facility] [address] [place] [address] Dr. Karen PierceCO2 [Moles/Vol]28.5 mmol/AJyntch47.0-32.0[facility] Comment on above:Performed By: #### UA #### [facility] [address] [place] [address] Dr. Karen PierceCreatinine [Mass/Vol]1.44 mg/dLCritically high0.70-1.30The [facility] HospitalComment on above:Performed By: #### UA #### [facility] [address] [place] [address] Dr. Karen ReyesGFR-AF UYTKXDTX85 mL/min/1.75i8Rfyztykrns low>=60The [facility] HospitalComment on above:Performed By: #### UA #### [facility] [address] [place] [address] Dr. Karen ReyesGFR-NON AF LZFOCHIU57 mL/min/1.58e2Ravvmjldbq low>=60The [facility] HospitalComharper university hospital on above:Performed By: #### UA #### [facility] [address] [place] [address] Dr. Karen PierceGlucose [Mass/Vol]104 mg/yBLjnwid24-894YnbOhiohealth Doctors Hospital Comment on above:Performed By: #### UA #### [facility] [address] [address] [address] Karen PiercePotassium [Moles/Vol]4.6 mmol/LNormal3.5-5.1[facility] Comment on above:Performed By: #### UA #### [facility] [address] [place] [address] Dr. Karen PiercePerformed By: #### PTHINT #### [facility] [address] [place] [address] Dr. Karen PierceSodium [Moles/Vol]141 mmol/UKzricb219-618BjuOhiohealth Doctors Hospital Comment on above:Performed By: #### UA #### [facility] [address] [place] [address] Dr. aKren Kennedy nitrogen [Mass/Vol]24.0 mg/dLCritically high7.0-18.0The [facility] HospitalComment on above:Performed By: #### UA #### [facility] [address] [place] [address] Dr. Karen PiercePerformed By: #### PTHINT #### [facility] [address] [place] [address] Dr. Karen Kennedy nitrogen/Creatinine [Mass ratio]16.7 mg/mgNoSelect Medical OhioHealth Rehabilitation HospitalComment on above:Performed By: #### UA #### [facility] [address] [place] [address] Dr. Karen PiercePROTIMEon 66-97-1260AWX Coag (PPP) [Relative time]1.01 {INR} NormalOhiohealth Doctors HospitalComment on above:Performed By: #### PTT, PT #### [facility] [address] [place] [address] Dr. Karen PierceINR GUIDELINESSEE BELOWSCCI Hospital LimaComment on above:Result Comment: DESIRED INR: 2.0 - 3.0 CONDITIONS NOT LISTED BELOW 2.5 - 3.5 FOR PROSTHETIC HEART VALVE REPLACEMENT 2.5 - 3.5 RECURRENT THROMBOSIS Performed By: #### PTT, PT #### [facility] [address] [address] [address] Karen PiercePT Coag (PPP) [Time]10.7 sNormal9.0-11.6The [facility] Comment on above:Performed By: #### PTT, PT #### [facility] [address] [address] [address] Karen GusmanTon 30-48-2200lQKE Coag (Bld) [Time]28.2 tOkvkyf71.3-36.2The [facility] HospitalComment on above:Performed By: #### PTT, PT #### [facility] [address] [place] [address] Dr. Karen PierceURIC ACID SERUMon 78-41-2219Orrem [Mass/Vol]4.8 mg/dLNormal 3.5-7.2The [facility] HospitalComment on above:Performed By: #### PTHINT #### [facility] [address] [place] [address] Dr. Karen PierceCreatinine (Bld) [Mass/Vol]Ordered By: Margarito Valentine on 16-86-5915Bpfnntasyn [Mass/Vol]1.5 mg/dL0.6-1.3FMedina Hospital Comment on above:ER/ESD physician is notified/shown all ISTAT results.Critical values may be confirmed by laboratorytesting ifdeemed necessary by ER attending doctor.Creatinine (Bld) [Mass/Vol]Ordered By: Heather Omalley on 07-24-2022 Creatinine [Mass/Vol]1.6 mg/dL0.6-1.3FMedina HospitalComment on above:ER/ESD physician is notified/shown all ISTAT results.Critical values may be confirmed by laboratorytesting ifdeemed necessary by ER attending doctor.No Panel InformationOrdered By: Heather Omalley on 81-06-6890ULD Estimated GFR Y[address]an[address] [place], [place] [address]Comment on above:GFR estimated reference range: According to KDOQI guidelines, <60 ml/min/1.73m2 is sufficient todiagnose a patient with chronic kidney disease.POC Estimated GFR Non- Krcy62FsswxwpvbSalem City HospitalBlood activated clotting time by coagulation assayOrdered By: Margarito Valentine on 45-60-5398JJY Coag (Bld) 215 x76-025IkusaluzzSalem City HospitalComment on above:Reference Range: 90-139 (Non-heparinized)Basophils Auto (Bld) [#/Vol]Ordered By: Margarito Valentine on 35-96-7369Vtjgykski (Bld) [#/Vol]0.1 10*3/uL0.0-0.2FMedina HospitalBasophils/100 WBC Auto (Bld)Ordered By: Margarito Valentine on 78-21-7350Yzvooybwt/100 WBC (Bld)0.9 %.[facility] HospitalCreatinine and Glomerular filtration rate.predicted panel (S/P/Bld)Ordered By: Margarito Valentine on 38-10-4000Meeefvvlle [Mass/Vol]1.24 mg/dL0.64-1.27 [facility] HospitalEosinophils Auto (Bld) [#/Vol]Ordered By: Margarito Valentine on 67-04-8809Gkxgjxpcamr (Bld) [#/Vol]0.2 10*3/uL0.0-0.45 [facility] HospitalEosinophils/100 WBC Auto (Bld)Ordered By: Margarito Valentine on 84-74-5750Ivrogjjwkcq/100 WBC (Bld)2.5 %.[facility] HospitalErythrocyte distribution width Auto (RBC) [Ratio]Ordered By: Margarito Valentine on 07-83-7681Gssutowiomu distribution width (RBC) [Ratio] 18.0 %12.0-14.8[facility] HospitalEstimated glomerular filtration rate (GFR) non- AmericanOrdered By: Margarito Valentine on 06-21-2022 GFR/1.73 sq M.predicted among non-blacks MDRD (S/P/Bld) [Vol rate/Area]56 mL/Min [facility] HospitalHematocrit Auto (Bld) [Volume fraction]Ordered By: Margarito Valentine on 53-65-7636Mrrujakmzw (Bld) [Volume fraction]37.7 % 38.8-50.0[facility] HospitalHemoglobin [Mass/volume] in Blood Ordered By: Margarito Valentine on 72-29-9661Vbzkqjgzbt (Bld) [Mass/Vol]12.3 g/dL 13.0-17.0[facility] HospitalLeukocytes [#/volume] corrected for nucleated erythrocytes in Blood by Automated counOrdered By: Margarito Valentine on 57-82-4727AAQ corrected for nucl RBC Auto (Bld) [#/Vol]7.1 10*3/uL4.1-10.5 [facility] HospitalLymphocytes Auto (Bld) [#/Vol]Ordered By: Margarito Valentine on 31-17-1527Vevgtflczkd (Bld) [#/Vol]1.3 10*3/uL1.00-4.8 [facility] HospitalLymphocytes/100 WBC Auto (Bld)Ordered By: Margarito Valentine on 54-00-3704Dlcasdcnmlf/100 WBC (Bld)18.7 %.[facility] HospitalMCH Auto (RBC) [Entitic mass]Ordered By: Margarito Valentine on 18-21-0172EFV (RBC) [Entitic mass]28.2 pg27.5-35.2FMedina HospitalMCHC Auto (RBC) [Mass/Vol]Ordered By: Margarito Valentine on 35-27-7538PTRD (RBC) [Mass/Vol]32.6 g/dL32.5-35.6FMedina HospitalMCV Auto (RBC) [Entitic vol]Ordered By: Margarito Valentine on 06-21-2022 MCV (RBC) [Entitic vol]86.5 fL83.5-101Sal[facility] HospitalMonocytes Auto (Bld) [#/Vol]Ordered By: Margarito Valentine on 14-58-5224Upmhtzuln (Bld) [#/Vol]0.7 10*3/uL0.0-0.8[facility] HospitalMonocytes/100 WBC Auto (Bld)Ordered By: Margarito Valentine on 10-55-3619Vqqhexcmo/100 WBC (Bld)10.3 %. [facility] HospitalNeutrophils Auto (Bld) [#/Vol]Ordered By: Margarito Valentine on 65-13-6537Feccgqehspa (Bld) [#/Vol]4.8 10*3/uL1.8-7.7 [facility] HospitalNeutrophils/100 WBC Auto (Bld)Ordered By: Margarito Valentine on 50-27-2421Cezgdjuzkoa/100 WBC (Bld)67.6 %.[facility] HospitalNo Panel InformationOrdered By: Margarito Valentine on 60-21-4890Gmrfhuhle GFR ()> 60 mL/MinSalem City HospitalComment on above:GFR estimated reference range: According to KDOQI guidelines, <60 ml/min/1.73m2 is sufficient todiagnose a patient with chronic kidney disease.Pharmacy Creatinine Clearance (ChemN/[facility] HospitalNucleated erythrocytes [Presence] in Blood by Automated countOrdered By: Margarito Valentine on 41-86-5257Fwoiikkej RBC Auto Ql (Bld)0.1 /100{WBC}0-0.5 [facility] HospitalPlatelet mean volume Auto (Bld) [Entitic vol] Ordered By: Margarito Valentine on 51-97-9020Tdhnxdgc mean volume (Bld) [Entitic vol]8.2 fL6.6-10.1FMedina HospitalPlatelets Auto (Bld) [#/Vol] Ordered By: Margarito Valentine on 09-63-8079Hohmqccze (Bld) [#/Vol]149 10*3/uL 150-450Sal[facility] City HospitalRBC Auto (Bld) [#/Vol]Ordered By: Margarito Valentine on 41-69-1293SFR (Bld) [#/Vol]4.36 10*6/uL3.90-5.60[facility] Youngstownerum or plasma anion gap determinationOrdered By: Margarito Valentine on 33-35-8699Wytmu gap [Moles/Vol]10.8 mmol/L6.0-15.0 [facility] Youngstownerum or plasma calcium measurement (mass/volume)Ordered By: Margarito Valentine on 24-80-7183Yhmvmzd [Mass/Vol]8.8 mg/dL8.2-10.2FToledo Hospitalerum or plasma chloride measurement (moles/volume)Ordered By: Margarito Valentine on 00-03-3765Iajdemei [Moles/Vol]107 mmol/N02-679HtrpwcafrSelect Medical Specialty Hospital - Youngstownerum or plasma glucose measurement (mass/volume)Ordered By: Margarito Valentine on 06-21-2022 Glucose [Mass/Vol]103 mg/eN02-992PjsnwujwiSalem City HospitalComment on above:ADA recommended reference rangeRandom Glucose Reference Range is dependent on time and content of last meal. Glucose of more than 200 mg/dL in a nonstressed, ambulatory subject supports the diagnosisof Diabetes Mellitus.Serum or plasma potassium measurement (moles/volume)Ordered By: Margarito Valentine on 81-97-2050Bmwpeskjy [Moles/Vol]4.2 mmol/L3.5-5.1FToledo Hospitalerum or plasma sodium measurement (moles/volume)Ordered By: Margarito Valentine on 11-27-9428Ogxpwj [Moles/Vol]138 mmol/J121-784VxqlvtbukSelect Medical Specialty Hospital - Youngstownerum or plasma total carbon dioxide measurement (moles/volume) Ordered By: Margarito Valentine on 60-56-9127EK5 [Moles/Vol]24.4 mmol/L22.0-30.0 [facility] - Youngstownerum or plasma urea nitrogen measurement (mass/volume)Ordered By: Margarito Valentine on 43-91-3620Wxhh nitrogen [Mass/Vol]18 mg/dL9-23[facility] HospitalWBC Auto (Bld) [#/Vol] Ordered By: Margarito Valentine on 98-71-6774TQK (Bld) [#/Vol]7.1 10*3/uL4.1-10.5 [facility] HospitalOffice Visit (Cardiology)on 87-61-3646Kwhdry-up visitDiagnoses/Problems Assessed Dyslipidemia (272.4) (E78.5) Hypertension (401.9) [...] Complaint ALEX ANDERSON is being seen for [facility] poc/ekg. 76-year-old white male who I saw [...] Signs Recorded: 03Jun2022 03:38PM Heart Rate71, Apical Ikjetvcz110, LUE, Sitting Qlczrxhnn89, LUE, Sitting Height6 ft 2 in Djoiwx298 lb BMI Hiorcodiyv72.45 kg/m2 BSA Calculated2.2 Tobacco Useb) No PHQ-2 [...] regular (more content not included)...NormalUH TouchworksTobacco Screening.on 56-98-8780Nqrvc depression screening assessmentNoDoctors Hospital [facility] 250 DO Work Phone: Fall risk assessmenta) No falls within the last year [facility] 250 DO Work Phone: Tobacco use status CPHSb) NoMWaldo Hospital [facility] [place] [facility] DO Work Phone: Basophils Auto (Bld) [#/Vol]Ordered By: Bernabe Cr on 34-00-5689Hleesrwvi (Bld) [#/Vol]0.1 10*3/uL0.0-0.2FMedina HospitalBasophils/100 WBC Auto (Bld)Ordered By: Bernabe Cr on 76-51-3315Mtqugrmye/100 WBC (Bld)1.2 %.[facility] HospitalCreatinine and Glomerular filtration rate.predicted panel (S/P/Bld)Ordered By: Bernabe Cr on 19-44-2062Wiudklnxhb [Mass/Vol]1.78 mg/dL0.64-1.27 [facility] HospitalEosinophils Auto (Bld) [#/Vol]Ordered By: Bernabe Cr on 13-85-7023Fwfhpicxpzd (Bld) [#/Vol]0.3 10*3/uL0.0-0.45 [facility] HospitalEosinophils/100 WBC Auto (Bld)Ordered By: Bernabe Willism on 32-14-3499Adgrpqwmdic/100 WBC (Bld)3.6 %.[facility] HospitalErythrocyte distribution width Auto (RBC) [Ratio]Ordered By: Bernabe Cr on 49-85-3538Xawnrtvwtpl distribution width (RBC) [Ratio]15.3 %12.0-14.8[facility] HospitalEstimated glomerular filtration rate (GFR) non- AmericanOrdered By: Bernabe Cr on 23-54-8626JGG/1.73 sq M.predicted among non-blacks MDRD (S/P/Bld) [Vol rate/Area]37 mL/MinSalem City HospitalHematocrit Auto (Bld) [Volume fraction]Ordered By: Bernabe Cr on 53-22-7454Upnraspgof (Bld) [Volume fraction]36.2 %38.8-50.0[facility] HospitalHemoglobin [Mass/volume] in BloodOrdered By: Bernabe Cr on 49-74-8909Jlauvlazec (Bld) [Mass/Vol]11.7 g/dL13.0-17.0[facility] HospitalLeukocytes [#/volume] corrected for nucleated erythrocytes in Blood by Automated coun Ordered By: Bernabe Cr on 14-97-1920JRZ corrected for nucl RBC Auto (Bld) [#/Vol]8.1 10*3/uL4.1-10.5FMedina HospitalLymphocytes Auto (Bld) [#/Vol]Ordered By: Bernabe Cr on 62-71-2811Apwyzkalioc (Bld) [#/Vol]1.4 10*3/uL1.00-4.8[facility] HospitalLymphocytes/100 WBC Auto (Bld)Ordered By: Bernabe Cr on 68-47-9697Gjmikvjskfz/100 WBC (Bld)16.9 %.[facility] Auto (RBC) [Entitic mass] Ordered By: Bernabe Cr on 90-65-6501MCW (RBC) [Entitic mass]27.4 pg 27.5-35.2FMedina HospitalMCHC Auto (RBC) [Mass/Vol]Ordered By: Bernabe rC on 48-77-7380JWYQ (RBC) [Mass/Vol]32.5 g/dL32.5-35.6 [facility] HospitalMCV Auto (RBC) [Entitic vol]Ordered By: Bernabe Cr on 06-71-1084CRZ (RBC) [Entitic vol]84.3 fL83.5-101 [facility] HospitalMonocytes Auto (Bld) [#/Vol]Ordered By: Bernabe Cr on 29-04-5330Fiznupbfj (Bld) [#/Vol]0.8 10*3/uL0.0-0.8 [facility] HospitalMonocytes/100 WBC Auto (Bld)Ordered By: Bernabe Cr on 93-07-4863Lvknxamap/100 WBC (Bld)10.1 %.[facility] HospitalNeutrophils Auto (Bld) [#/Vol]Ordered By: Bernabe Cr on 30-66-2529Pxmyrwvdbzx (Bld) [#/Vol]5.6 10*3/uL1.8-7.7FMedina HospitalNeutrophils/100 WBC Auto (Bld)Ordered By: Bernabe Cr on 49-55-6712Hfuqxiqfxka/100 WBC (Bld)68.2 %.[facility] HospitalNo Panel InformationOrdered By: Bernabe Cr on 05-22-2022 Estimated GFR ()45 mL/MinSalem City Hospital Comment on above:GFR estimated reference range: According to KDOQI guidelines, <60 ml/min/1.73m2 is sufficient todiagnose a patient with chronic kidney disease.Pharmacy Creatinine Clearance (Chem39.77[facility] HospitalNucleated erythrocytes [Presence] in Blood by Automated countOrdered By: Bernabe Cr on 10-64-4431Hrsydhews RBC Auto Ql (Bld)0.1 /100{WBC}0-0.5 [facility] HospitalPlatelet mean volume Auto (Bld) [Entitic vol] Ordered By: Bernabe Cr on 09-89-1389Brgyglzj mean volume (Bld) [Entitic vol]8.7 fL6.6-10.1FMedina HospitalPlatelets Auto (Bld) [#/Vol]Ordered By: Bernabe Cr on 03-43-0689Thbtpaywj (Bld) [#/Vol]198 10*3/mS995-098NpvddgvpbSalem City HospitalRBC Auto (Bld) [#/Vol]Ordered By: Bernabe Cr on 25-63-5185SRP (Bld) [#/Vol]4.29 10*6/uL3.90-5.60 [facility] Youngstownerum or plasma anion gap determinationOrdered By: Bernabe Cr on 38-38-3021Vmikp gap [Moles/Vol]13.3 mmol/L6.0-15.0 [facility] Youngstownerum or plasma calcium measurement (mass/volume)Ordered By: Bernabe Cr on 34-67-1961Taitvcw [Mass/Vol]8.3 mg/dL8.2-10.2FToledo Hospitalerum or plasma chloride measurement (moles/volume)Ordered By: Bernabe Cr on 61-22-5067Olfiwtnc [Moles/Vol]104 mmol/V02-388HuvjamefmSelect Medical Specialty Hospital - Youngstownerum or plasma glucose measurement (mass/volume)Ordered By: Bernabe Cr on 05-22-2022 Glucose [Mass/Vol]180 mg/hX66-397FchduqnttSalem City HospitalComment on above:ADA recommended reference rangeRandom Glucose Reference Range is dependent on time and content of last meal. Glucose of more than 200 mg/dL in a nonstressed, ambulatory subject supports the diagnosisof Diabetes Mellitus.Serum or plasma potassium measurement (moles/volume)Ordered By: Bernabe Cr on 51-60-5172Lsnszudzq [Moles/Vol]3.3 mmol/L3.5-5.1FToledo Hospitalerum or plasma sodium measurement (moles/volume)Ordered By: Bernabe Cr on 43-80-5456Urkaht [Moles/Vol]137 mmol/Z505-434GushhlzroSelect Medical Specialty Hospital - Youngstownerum or plasma total carbon dioxide measurement (moles/volume) Ordered By: Bernabe Cr on 70-71-2917DR7 [Moles/Vol]23.0 mmol/L 22.0-30.0[facility] Youngstownerum or plasma urea nitrogen measurement (mass/volume)Ordered By: Bernabe Cr on 02-45-9955Zyud nitrogen [Mass/Vol]21 mg/dL9-23[facility] HospitalWBC Auto (Bld) [#/Vol]Ordered By: Bernabe Cr on 94-24-3917AHS (Bld) [#/Vol]8.1 10*3/uL4.1-10.5FMedina HospitalNo Panel InformationOrdered By: Bernabe Cr on 54-44-358821071189-Onheqjw Vitamin D Total15.9 ng/tP43-068 [facility] HospitalComment on above:VITAMIN D STATUS 25(OH)VITAMIN D RANGE (ng/mL) Deficient <20 Insufficient 20 to <03Symjnjcnls58 to 100Reference: Sixto MF,Federico MATA, Palomo LESLIE, et al. Evaluation,treatment, and prevention of vitamin D deficiency; an Endocrine Society clinical practice guideline. JCEM. 2010; 96(7):1911-30.Vitamin C level0.2 mg/dL0.4-2.0[facility] HospitalComment on above:This test was developed and its performance characteristicsdetermined by [facility]ss[facility]. It has not been cleared orapproved by the Food and Drug Administration.Vitamin C deficiency is generally defined as plasma orserum concentrations less than 0.2 mg/dL and levels between0.2 and 0.4 mg/dL are considered low.Performed at: [address] [id number] Director: Mamadou Rodriguez MD, Phone: [phone] [Mass/volume] in Serum or PlasmaOrdered By: Taz Barnes on 48-11-7106Acyhdn [Mass/Vol]5.5 ng/mL>5.9[facility] HospitalComment on above:Folate reference range: >5.9 ng/mlThe WHO technical consultation on folate and vitamin t89ffloavtatyyo has determined that folate concentrations lessthan 4 ng/ml are considered deficient.Laboratory - Chemistry and Chemistry - challengeOrdered By: Taz Barnes on 05-20-2022 Cobalamin (Vitamin B12) [Mass/Vol]169 pg/vH337-283FndymdyruSalem City HospitalNo Panel InformationOrdered By: Taz Barnes on 23-06-6425Oyl and Parasite Result 1FMedina HospitalOva and Parasite Result 1 [facility] HospitalOva or parasites identificationOrdered By: Taz Barnes on 24-63-5626Bns and parasites identified LM Nom (Unsp spec) [facility] and parasites identified LM Nom (Unsp spec) [facility] HospitalLaboratory - Chemistry and Chemistry - challengeOrdered By: Janice Gonzalez on 30-43-6961Fedonjtty [Mass/Vol]1.7 mg/dL 1.6-2.6FMedina HospitalAutomated erythrocytes count in urine sediment (number/area)Ordered By: Taz Barnes on 57-25-2349CGG Auto (Urine sed) [#/Area]50-100 [HPF]0-4FMedina HospitalAutomated leukocytes count in urine sediment (number/area)Ordered By: Taz Barnes on 82-65-3454HPN Auto (Urine sed) [#/Area]Innumerable [HPF]0-4FMedina HospitalAutomated urine hyaline casts count (number/volume)Ordered By: Taz Barnes on 99-32-5039Srjemxi casts Auto (U) [#/Vol]None seen [LPF]0-1 [facility] HospitalBilirubin Test strip Ql (U)Ordered By: Taz Barnes on 62-94-5969Lktazhiti Ql (U)NegativeNegativeSalem City HospitalCasts typing in urine sediment by light microscopyOrdered By: Taz Barnes on 37-79-0685Ksnkd LM Nom (Urine sed)None seen [LPF]None SeenSalem City HospitalColor Auto (U)Ordered By: Taz Barnes on 05-18-2022 Color (U)YellowYellowSalem City HospitalKetones Auto test strip (U) [Mass/Vol]Ordered By: Taz Barnes on 17-32-5631Fwlzmgk (U) [Mass/Vol] NegativeNegativeSalem City HospitalNitrite Test strip Ql (U) Ordered By: Taz Barnes on 79-57-3251Boiudfb Ql (U)NegativeNegTriHealth Bethesda North HospitalProtein Auto test strip (U) [Mass/Vol]Ordered By: Taz Barnes on 73-82-8607Ovbfqfb (U) [Mass/Vol]100 mg/dLNegAdams County Hospitalpecific gravity Auto test strip (U) [Rel density]Ordered By: Taz Barnes on 38-56-3179Efzmgvti gravity (U) [Rel density]1.0101.001-1.030 [facility] Youngstownquamous epithelial cells detection in urine sediment by light microscopyOrdered By: Taz Barnes on 69-39-7651Iyqyfmfbps cells.squamous LM Ql (Urine sed)1-2 [HPF]0-2FMedina Hospital Urine bacteria detection by automated methodOrdered By: Taz Barnes on 61-53-9912Lmjhcdtj Auto Ql (U)None seenNone SeenSalem City HospitalUrine clarity by refractometry automatedOrdered By: Taz Barnes on 08-15-9328Agmkuoi Refractometry automated (U)TurbidCleOhioHealth Dublin Methodist HospitalUrine culture routineOrdered By: Taz Barnes on 05-18-2022 Bacteria identified Cx Nom (U)No Growth 2 [facility] Bacteria identified Cx Nom (U)No Growth 2 [facility] Urine glucose measurement by automated test strip (mass/volume)Ordered By: Taz Barnes on 06-80-4687Jmsbeqg Auto test strip (U) [Mass/Vol]Normal mg/dL NormalSalem City HospitalUrine hemoglobin detection by automated test stripOrdered By: Taz Barnes on 16-55-1068Oobjztgeoh Auto test strip Ql (U)2+NegativeSalem City HospitalUrine leukocyte esterase detection by automated test stripOrdered By: Taz Barnes on 11-83-7677Ofcniruqt esterase Auto test strip Ql (U)4+NegativeSalem City Hospital Urobilinogen Auto test strip (U) [Mass/Vol]Ordered By: Taz Barnes on 93-05-5967Sgizfcrqdcsg (U) [Mass/Vol]Normal mg/dLNormalSalem City HospitalYeast detection in urine sediment by light microscopyOrdered By: Taz Barnes on 99-11-1024Yjnih LM Ql (Urine sed)None seen [HPF]None Seen [facility] HospitalpH Auto test strip (U)Ordered By: Taz Barnes on 42-88-1268pY (U)7.5 [pH]5.0-9.0[facility] HospitalActivated partial thromboplastin time (aPTT) in platelet poor plasma by coagulation a Ordered By: Taz Barnes on 23-25-5391eXFT Coag (PPP) [Time]29.5 s25.1-36.5 [facility] HospitalBody fluid albumin measurement (mass/volume) Ordered By: Taz Barnes on 82-67-4631Tczhrnq (Body fld) [Mass/Vol]2.9 g/dL 3.2-5.5FMedina HospitalCBC AUTO DIFFon 79-16-5868DMQJ #0.0 103/ulNormal0.0-0.1The [facility] HospitalComment on above:Performed By: #### CBC #### [facility] [address] [address] [address] Karen PierceBasophils/100 WBC (Bld)0.3 %Normal0.2-2.0[facility] Comment on above:Performed By: #### CBC #### [facility] [address] [address] [address] Karen Valente #0.1 103/ulNormal0.0-0.7The [facility] HospitalComment on above: Performed By: #### CBC #### [facility] [address] [address] [address] Karen Reyesosinophils/100 WBC (Bld)0.7 %Critically low0.9-7.0The [facility] HospitalComment on above:Performed By: #### CBC #### [facility] [address] [address] [address] Karen Reyesrythrocyte distribution width (RBC) [Ratio]14.8 %Xclybx93.0-15.0 The [facility] HospitalComment on above:Performed By: #### CBC #### [facility] [address] [address] [address] Karen PierceHematocrit (Bld) [Volume fraction]39.4 %Critically low42.0-54.0 The [facility] HospitalComment on above:Performed By: #### CBC #### [facility] [address] [address] [address] Karen PierceHemoglobin (Bld) [Mass/Vol]12.6 g/dLCritically low14.0-18.0The [facility] HospitalComment on above:Performed By: #### CBC #### [facility] [address] [address] [address] Karen PierceIG #0.04 10e3/ulCritically high0.00-0.03The [facility] Comment on above:Performed By: #### CBC #### [facility] [address] [place] [address] Dr. Karen Ayala %0.4 %Normal0.0-0.5The [facility] HospitalComment on above: Performed By: #### CBC #### [facility] [address] [address] [address] Karen Torres #1.2 103/ulNormal1.2-3.8The [facility] HospitalComment on above:Performed By: #### CBC #### [facility] [address] [place] [address] Dr. Karen Kimmphocytes/100 WBC (Bld)11.8 %Critically low20.5-60.0The [facility]ment on above:Performed By: #### CBC #### [facility] [address] [address] [address] Karen PierceMANUAL DIFF REQNONormalThe [facility] HospitalComment on above: Performed By: #### CBC #### [facility] [address] [place] [address] Dr. Karen Whitt (RBC) [Entitic mass]27.5 cuMdnihu51.9-34.0The [facility] HospitalComment on above:Performed By: #### CBC #### [facility] [address] [address] [address] Karen MichaelHC (RBC) [Mass/Vol]32.0 g/yISuxjwv80.9-35.2The [facility] HospitalComment on above:Performed By: #### CBC #### [facility] [address] [place] [address] Dr. Karen MichaelV (RBC) [Entitic vol]86.0 gZAeytfp24.0-94.0The [facility] HospitalComment on above:Performed By: #### CBC #### [facility] [address] [place] [address] Dr. Kaern Monteiro #1.4 103/ulCritically high0.3-0.8The [facility] Comment on above:Performed By: #### CBC #### [facility] [address] [place] [address] Dr. Karen Elizabethocytes/100 WBC (Bld)13.8 %Critically high1.7-12.0The [facility] HospitalComment on above:Performed By: #### CBC #### [facility] [address] [place] [address] Dr. Karen Cronin #7.6 103/ulCritically high1.4-6.5The [facility] Comment on above:Performed By: #### CBC #### [facility] [address] [place] [address] Dr. Karen Padillautrophils/100 WBC (Bld)73.0 %Zyxyno69.0-75.0The [facility] HospitalComment on above:Performed By: #### CBC #### [facility] [address] [place] [address] Dr. Karen Amandalet mean volume (Bld) [Entitic vol]10.6 fLNormal9.5-13.5The [facility] HospitalComment on above:Performed By: #### CBC #### [facility] [address] [place] [address] Dr. Karen PiercePLT193 103/jjFgyzvj470-590Bvd [facility] HospitalComment on above: Performed By: #### CBC #### [facility] [address] [place], [place] [address] Dr. Karen PierceRBC4.58 106/ulCritically low4.70-6.10The [facility] HospitalComment on above:Performed By: #### CBC #### [facility] [address] [place], [place] [address] Dr. Karen PierceWBC10.4 103/ulNormal4.0-11.0The [facility] HospitalComment on above:Performed By: #### CBC #### [facility] [address] [place], [place] [address] Dr. Karen PierceCT ABD/PELVIS WO CONon [id number] ABD/PELVIS WO CONEXAMINATION: CT ABD/PELVIS WO CON [...] Electronically authenticated by: LORENZO SCHERER Date: 2022-05-16 09:21NoSelect Medical [facility] HospitalCULTURE URINEon [id number] URINECulture Observations: MODERATE GROWTH OF MIXED SKIN JAS. NO POTENTIAL PATHOGENS SEEN.NormalThe [facility] HospitalComment on above:Performed By: #### URTPCR #### [facility] [address] [place] [address] Dr. Karen Williamson-19 [facility] ([facility])on [id number]-CoV-2 (COVID-19) RNA KARI+probe Ql (Unsp spec)Not detectedNormalNOT DETECTEDThe [facility] Comment on above:Result Comment: When diagnostic [...] for this test is supported by the Senior [employer] Processor of Health and Human Service's declaration that [...] longer be used).Performed By: #### UA #### [facility] [address] [place] [address] Dr. Karen PierceCreatinine [Mass/volume] in UrineOrdered By: Taz Barnes on 47-70-5953Tfsvztjwyn (U) [Mass/Vol]68.1 mg/dLSalem City Hospital Comment on above:No reference range establishedER URINE PROFILEon 05-16-2022 Bilirubin Ql (U)NegativeNormalNEGATIVEOhiohealth Doctors HospitalComment on above: Performed By: #### URTPCR #### [facility] [address] [place] [address] Dr. Karen PierceClarity (U)CLEARNormalCLEAROhiohealth Doctors HospitalComment on above: Performed By: #### URTPCR #### [facility] [address] [place] [address] Dr. Karen PierceColor (U)YELLOWNormalYELLOWOhiohealth Doctors HospitalComment on above: Performed By: #### URTPCR #### [facility] [address] [place] [address] Dr. Karen Daigle micrscopic examination will be performed if indicated. NormalOhiohealth Doctors HospitalComment on above:Performed By: #### URTPCR #### [facility] [address] [place] [address] Dr. Karen PierceGlucose Ql (U)NegativeNormalNEGATIVEOhiohealth Doctors HospitalComment on above:Performed By: #### URTPCR #### [facility] [address] [place] [address] Dr. Karen PierceHemoglobin Ql (U)MODERATEAbnormalNEGPremier Health Upper [facility] Medical Center Comment on above:Performed By: #### URTPCR #### [facility] [address] [place] [address] Dr. Yilan ChangKetones Ql (U)NegativeNormalNEGATIVEThe [facility] HospitalComment on above:Performed By: #### URTPCR #### [facility] [address] [place] [address] Dr. Karen PierceLEUKOCYTESLARGEAbnormalNEGATIVEOhiohealth Doctors HospitalComment on above:Performed By: #### URTPCR #### [facility] [address] [place] [address] Dr. Karen PierceNitrite Ql (U)NegativeNormalNEGATIVEThe [facility] HospitalComment on above:Performed By: #### URTPCR #### [facility] [address] [place] [address] Dr. Karen PiercepH (U)5.5 [pH]Normal5-9The [facility] HospitalComment on above: Performed By: #### URTPCR #### [facility] [address] [place] [address] Dr. Karen PierceSPEC GRAVITY<=1.326Bocuyvcq0.005-<=1.025The [facility] Comment on above:Performed By: #### URTPCR #### [facility] [address] [place] [address] Dr. Karen Lanier PROTEINNegativeNormalNEGATIVE/ TRACEOhiohealth Doctors Hospital Comment on above:Performed By: #### URTPCR #### [facility] [address] [place] [address] Dr. Karen Moulton MICRO INDINDICATEDNormalThe [facility] HospitalComment on above: Performed By: #### URTPCR #### [facility] [address] [place] [address] Dr. Karen PierceUrobilinogen Qn (U)0.2 {Tonio'U}/dLNormal0.2 - 1.0The [facility] HospitalComment on above:Performed By: #### URTPCR #### [facility] [address] [place] [address] Dr. Karen PierceGlobulin Calc (S) [Mass/Vol]Ordered By: Taz Barnes on 70-82-9828Jhbbfoir (S) [Mass/Vol]3.5 g/dLSalem City Hospital Laboratory - CoagulationOrdered By: Taz Barnes on 23-54-1116GU Coag (PPP) [Time]14.2 s9.0-12.9Sal[facility] City HospitalPROF 14(COMP METB)on 69-79-3700Zpsbwmn [Mass/Vol]3.1 g/dLCritically low3.4-5.0The [facility] Comment on above:Performed By: #### URTPCR #### [facility] [address] [address] [address] Karen PierceAlbumin/Globulin [Mass ratio]0.7 {ratio}NormalThe [facility] HospitalComment on above:Performed By: #### URTPCR #### [facility] [address] [address] [address] Karen RamirezP [Catalytic activity/Vol]96 U/EPvmwmt51-827Coi [facility] HospitalComment on above:Performed By: #### URTPCR #### [facility] [address] [address] [address] Karen Matthew [Catalytic activity/Vol]46 U/CIwmpym72-89Jct [facility] HospitalComment on above:Performed By: #### URTPCR #### [facility] [address] [address] [address] Karen Landon gap [Moles/Vol]19.7 mmol/LNormalThe [facility] Comment on above:Performed By: #### URTPCR #### [facility] [address] [address] [address] Karen PierceAST [Catalytic activity/Vol]21 U/KButusv03-54Nly [facility] HospitalComment on above:Performed By: #### URTPCR #### [facility] [address] [address] [address] Karen PierceBilirubin [Mass/Vol]0.3 mg/dLNormal0.2-1.0The [facility] Comment on above:Performed By: #### URTPCR #### [facility] [address] [address] [address] Karen PierceCalcium [Mass/Vol]8.9 mg/dLNormal8.5-10.1The [facility] Comment on above:Performed By: #### URTPCR #### [facility] [address] [place] [address] Dr. Karen PierceChloride [Moles/Vol]101 mmol/VZiyqfl22-972Clg [facility] Comment on above:Performed By: #### URTPCR #### [facility] [address] [place] [address] Dr. Karen PierceCO2 [Moles/Vol]18.3 mmol/LCritically low21.0-32.0The [facility] HospitalComment on above:Performed By: #### URTPCR #### [facility] [address] [place] [address] Dr. Karen PierceCreatinine [Mass/Vol]8.99 mg/dLCritically high0.70-1.30The [facility] HospitalComment on above:Performed By: #### URTPCR #### [facility] [address] [place] [address] Dr. Jones ChangEGFR-AF AMERICAN7 mL/min/1.98p5Nttkfxkrom low>=60The [facility] HospitalComment on above:Performed By: #### URTPCR #### [facility] [address] [place] [address] Dr. Karen ReyesGFR-NON AF AMERICAN6 mL/min/1.96n7Ugwsguosjn low>=60The [facility] HospitalComment on above:Performed By: #### URTPCR #### [facility] [address] [place] [address] Dr. Karen PierceGlobulin (S) [Mass/Vol]4.7 g/dLNormalThe [facility] HospitalComment on above:Performed By: #### URTPCR #### [facility] [address] [place] [address] Dr. Karen PierceGlucose [Mass/Vol]110 mg/dLCritically cjdt39-587Pfv [facility] HospitalComment on above:Performed By: #### URTPCR #### [facility] [address] [address] [address] Karen PiercePotassium [Moles/Vol]5.0 mmol/LNormal3.5-5.1The [facility] Comment on above:Performed By: #### URTPCR #### [facility] [address] [address] [address] Karen PierceProtein [Mass/Vol]7.8 g/dLNormal6.4-8.2The [facility] Comment on above:Performed By: #### URTPCR #### [facility] [address] [address] [address] Karen PierceSodium [Moles/Vol]134 mmol/LCritically rqs143-326Xwc [facility] HospitalComment on above:Performed By: #### URTPCR #### [facility] [address] [address] [address] Karen PierceUrea nitrogen [Mass/Vol]129.0 mg/dLCritically high7.0-18.0Ohio[facility] Doctors HospitalComment on above:Performed By: #### URTPCR #### [facility] [address] [address] [address] Karen Kennedy nitrogen/Creatinine [Mass ratio]14.3 mg/mgNormalThe [facility] HospitalComment on above:Performed By: #### URTPCR #### [facility] [address] [address] [address] Karen PiercePlatelet poor plasma international normalized ratio (INR) by coagulation assay (relatOrdered By: Taz Barnes on 24-97-3125TQK Coag (PPP) [Relative time]1.3 {INR}[facility] HospitalComment on above:INR Therapeutic Range A) Pre- and [...] Serum or PlasmaOrdered By: Taz Barnes on 85-56-9586Bfuaoqp [Mass/Vol]6.4 g/dL6.1-7.9[facility] - Youngstownerum or plasma alanine aminotransferase measurement without P-5'-P (enzymatic activiOrdered By: Taz Barnes on 68-43-3525GIO No additional P-5'-P [Catalytic activity/Vol]38 U/E91-21LwcuhvgogSelect Medical Specialty Hospital - Youngstownerum or plasma albumin/globulin mass ratioOrdered By: Taz Barnes on 34-48-7021Xdwfwed/Globulin [Mass ratio]0.8 {ratio}[facility] Youngstownerum or plasma alkaline phosphatase measurement (enzymatic activity/volume)Ordered By: Taz Barnes on 05-16-2022 ALP [Catalytic activity/Vol]78 U/H82-25OlgpvvyivSelect Medical Specialty Hospital - Youngstownerum or plasma aspartate aminotransferase measurement (enzymatic activity/volume)Ordered By: Taz Barnes on 22-80-1556ALA [Catalytic activity/Vol]19 U/L94-87QfwvtzywgSelect Medical Specialty Hospital - Youngstownerum or plasma total bilirubin measurement (mass/volume) Ordered By: Taz Barnes on 31-57-1437Bdvdhunja [Mass/Vol]0.4 mg/dL0.3-1.2 [facility] City HospitalURINE MICROSCOPIC ONLYon [id number] SMALLAbnormalNONE SEENOhiohealth Doctors HospitalComment on above:Performed By: #### URTPCR #### [facility] [address] [address] [address] Karen Hunt identified Cx Nom (U)INDICATEDNoalThParkview Health Montpelier HospitalComment on above:Performed By: #### URTPCR #### [facility] [address] [address] [address] Karen Patterson SEENNormalNONE SEENOhiohealth Doctors HospitalComharper university hospital on above:Performed By: #### URTPCR #### [facility] [address] [address] [address] Karen Yusufystals LM Nom (Urine sed)NONE SEENNormalNONE SEENOhiohealth Doctors HospitalComment on above:Performed By: #### URTPCR #### [facility] [address] [address] [address] Jones ChangEpithelial cells LM Ql (Urine sed)NONE SEENNormalNONE SEEN /RARE [facility] on above:Performed By: #### URTPCR #### [facility] [address] [address] [address] Karen PierceMUCOUSNONE SEENNormalNONE SEENThe [facility] on above:Performed By: #### URTPCR #### [facility] [address] [address] [address] Karen PierceOfjfdFAG58-22Zdtxdwtp1-2JdyLima Memorial Hospital on above: Performed By: #### URTPCR #### [facility] [address] [address] [address] Karen PierceWBC (U) [#/Vol]/uLAbnormalNONE SEENLima Memorial Hospital on above:Performed By: #### URTPCR #### [facility] [address] [address] [address] Karen Vázquez sodium measurement (moles/volume)Ordered By: Taz Barnes on 95-10-6927Dmkxac (U) [Moles/Vol]42.0 mmol/LFMedina Hospital Comment on above:No reference range establishedXR ABD FLAT_UPon [id number] ABD FLAT_UPEXAMINATION: XR ABD FLAT_UP HISTORY: Fatigue [...] Electronically authenticated by: LORENZO SCHERER Date: 2022-05-16 09:[address] [place], [place] [address]C AUTO DIFFon [id number] #0.0 103/ulNormal0.0-0.1The [facility] HospitalComment on above:Performed By: #### UA #### [facility] [address] [place] [address] Dr. Karen PierceBasophils/100 WBC (Bld)0.3 %Normal0.2-2.0The [facility] Comment on above:Performed By: #### UA #### [facility] [address] [place] [address] Dr. Karen Valente #0.1 103/ulNormal0.0-0.7The [facility] HospitalComment on above: Performed By: #### UA #### [facility] [address] [place] [address] Dr. Karen Reyesosinophils/100 WBC (Bld)0.7 %Critically low0.9-7.0The [facility] HospitalComment on above:Performed By: #### UA #### [facility] [address] [place] [address] Dr. Karen Reyesrythrocyte distribution width (RBC) [Ratio]14.9 %Lbiayj61.0-15.0 [facility] Doctors HospitalComment on above:Performed By: #### UA #### [facility] [address] [place] [address] Dr. Karen PierceHematocrit (Bld) [Volume fraction]39.8 %Critically low42.0-54.0 The [facility] HospitalComment on above:Performed By: #### UA #### [facility] [address] [place] [address] Dr. Karen PierceHemoglobin (Bld) [Mass/Vol]12.7 g/dLCritically low14.0-18.0The [facility] HospitalComment on above:Performed By: #### UA #### [facility] [address] [place] [address] Dr. Karen Ayala #0.06 10e3/ulCritically high0.00-0.03The [facility] Comment on above:Performed By: #### UA #### [facility] [address] [address] [address] Karen Ayala %0.5 %Normal0.0-0.5The [facility] HospitalComment on above: Performed By: #### UA #### [facility] [address] [address] [address] Karen Torres #0.9 103/ulCritically low1.2-3.8ThParkview Health Montpelier Hospital Comment on above:Performed By: #### UA #### [facility] [address] [address] [address] Karen Brandthocytes/100 WBC (Bld)7.1 %Critically low20.5-60.0The [facility] HospitalComment on above:Performed By: #### UA #### [facility] [address] [place] [address] Dr. Karen Figueroa DIFF REQNONormalThe [facility] HospitalComment on above: Performed By: #### UA #### [facility] [address] [place] [address] Dr. Karen Michael (RBC) [Entitic mass]27.7 ziIafssz26.9-34.0The [facility] HospitalComment on above:Performed By: #### UA #### [facility] [address] [place] [address] Dr. Karen Michael (RBC) [Mass/Vol]31.9 g/gFZtcxdp48.9-35.2The [facility] HospitalComment on above:Performed By: #### UA #### [facility] [address] [place] [address] Dr. Karen Michael (RBC) [Entitic vol]86.7 bPBlmtmo58.0-94.0The [facility] HospitalComment on above:Performed By: #### UA #### [facility] [address] [place] [address] Dr. Karen Monteiro #1.0 103/ulCritically high0.3-0.8ThParkview Health Montpel[facility] Hospital Comment on above:Performed By: #### UA #### [facility] [address] [address] [address] Karen PierceMonocytes/100 WBC (Bld)8.5 %Normal1.7-12.0The [facility] Comment on above:Performed By: #### UA #### [facility] [address] [address] [address] Karen PadillaUT #9.9 103/ulCritically high1.4-6.5The [facility] Comment on above:Performed By: #### UA #### [facility] [address] [place] [address] Dr. Karen Padillautrophils/100 WBC (Bld)82.9 %Critically high43.0-75.0The [facility] HospitalComment on above:Performed By: #### UA #### [facility] [address] [place] [address] Dr. Karen PiercePlatelet mean volume (Bld) [Entitic vol]9.7 fLNormal9.5-13.5The [facility] HospitalComment on above:Performed By: #### UA #### [facility] [address] [place] [address] Dr. Karen PiercePLT206 103/ngUajdlc371-960Idx [facility] HospitalComment on above: Performed By: #### UA #### [facility] [address] [place] [address] Dr. Karen PierceRBC4.59 106/ulCritically low4.70-6.10The [facility] HospitalComment on above:Performed By: #### UA #### [facility] [address] [place] [address] Dr. Karen PierceWBC11.9 103/ulCritically high4.0-11.0The [facility] HospitalComment on above:Performed By: #### UA #### [facility] [address] [place] [address] Dr. Karen PierceLIPASEon 05-10-4933Bmgtcc [Catalytic activity/Vol]340.0 U/LNormal 73.0-393.0The [facility] HospitalComment on above:Performed By: #### UA #### [facility] [address] [address] [address] Karen Leos 14(COMP METB)on 00-33-2278Tpxkejq [Mass/Vol]3.1 g/dL Critically low3.4-5.0The [facility] HospitalComment on above:Performed By: #### UA #### [facility] [address] [place] [address] Dr. Karen PierceAlbumin/Globulin [Mass ratio]0.7 {ratio}NormalThe [facility] HospitalComment on above:Performed By: #### UA #### [facility] [address] [place] [address] Dr. Karen Murillo [Catalytic activity/Vol]105 U/QVdgszt90-028Onn [facility] HospitalComment on above:Performed By: #### UA #### [facility] [address] [place] [address] Dr. Karen Matthew [Catalytic activity/Vol]49 U/TDkzdhv96-22Uka [facility] HospitalComment on above:Performed By: #### UA #### [facility] [address] [place] [address] Dr. Karen Landon gap [Moles/Vol]18.4 mmol/LNormalThe [facility] Comment on above:Performed By: #### UA #### [facility] [address] [place] [address] Dr. Karen PierceAST [Catalytic activity/Vol]20 U/GIyzgln15-93Njq [facility] HospitalComment on above:Performed By: #### UA #### [facility] [address] [place] [address] Dr. Karen PierceBilirubin [Mass/Vol]0.3 mg/dLNormal0.2-1.0The [facility] Comment on above:Performed By: #### UA #### [facility] [address] [place] [address] Dr. Karen PierceCalcium [Mass/Vol]9.1 mg/dLNormal8.5-10.1The [facility] Comment on above:Performed By: #### UA #### [facility] [address] [address] [address] Karen PierceChloride [Moles/Vol]103 mmol/TKxypyb61-850Cbu [facility] Comment on above:Performed By: #### UA #### [facility] [address] [address] [address] Karen PierceCO2 [Moles/Vol]20.1 mmol/LCritically low21.0-32.0The [facility] HospitalComment on above:Performed By: #### UA #### [facility] [address] [place] [address] Dr. Karen PierceCreatinine [Mass/Vol]9.58 mg/dLCritically high0.70-1.30The [facility] HospitalComment on above:Performed By: #### UA #### [facility] [address] [place] [address] Dr. Karen ReyesGFR-AF AMERICAN6 mL/min/1.51v8Epmvldiacl low>=60The [facility] HospitalComment on above:Performed By: #### UA #### [facility] [address] [place] [address] Dr. Karen Bello-NON AF AMERICAN5 mL/min/1.11q2Ancweayrzi low>=60The [facility] HospitalComment on above:Performed By: #### UA #### [facility] [address] [place] [address] Dr. Karen PierceGlobulin (S) [Mass/Vol]4.6 g/dLNormalThe [facility] HospitalComment on above:Performed By: #### UA #### [facility] [address] [address] [address] Karen PierceGlucose [Mass/Vol]114 mg/dLCritically mrrj52-119Ipk [facility] HospitalComment on above:Performed By: #### UA #### [facility] [address] [place] [address] Dr. Karen PiercePotassium [Moles/Vol]5.5 mmol/LCritically high3.5-5.1The [facility] HospitalComment on above:Performed By: #### UA #### [facility] [address] [place] [address] Dr. Karen PierceProtein [Mass/Vol]7.7 g/dLNormal6.4-8.2The [facility] Comment on above:Performed By: #### UA #### [facility] [address] [place] [address] Dr. Karen PierceSodium [Moles/Vol]136 mmol/RQsqutp413-739XjsOhiohealth [facility] Comment on above:Performed By: #### UA #### [facility] [address] [place] [address] Dr. Karen PierceUrea nitrogen [Mass/Vol]134.0 mg/dLCritically high7.0-18.0The [facility] HospitalComment on above:Performed By: #### UA #### [facility] [address] [place] [address] Dr. Karen Kennedy nitrogen/Creatinine [Mass ratio]14.0 mg/mgNormalThe [facility] HospitalComment on above:Performed By: #### UA #### [facility] [address] [place] [address] Dr. Karen PiercePROF CHEM 8 (BAS METB)on 46-08-1840Dbfri gap [Moles/Vol]12.6 mmol/LNormalOhiohealth Doctors HospitalComment on above:Performed By: #### BMP #### [facility] [address] [place] [address] Dr. Karen PierceCalcium [Mass/Vol]8.7 mg/dLNormal8.5-10.1The [facility] Comment on above:Performed By: #### BMP #### [facility] [address] [place] [address] Dr. Karen PierceChloride [Moles/Vol]103 mmol/APzyvzr14-116BkaOhiohealth [facility] Comment on above:Performed By: #### BMP #### [facility] [address] [place] [address] Dr. Karen PierceCO2 [Moles/Vol]27.3 mmol/VOpgbgi27.0-32.0The [facility] Comment on above:Performed By: #### BMP #### [facility] [address] [address] [address] Karen PierceCreatinine [Mass/Vol]1.26 mg/dLNormal0.70-1.30The [facility] HospitalComment on above:Performed By: #### BMP #### [facility] [address] [address] [address] Karen ReyesGFR-AF RWANDAN>60Normal>=60The [facility] HospitalComment on above:Performed By: #### BMP #### [facility] [address] [address] [address] Karen ReyesGFR-NON AF FIVFWABA98 mL/min/1.73i7Dzauuceaoa low>=60The [facility] HospitalComment on above:Performed By: #### BMP #### [facility] [address] [address] [address] Karen PierceGlucose [Mass/Vol]111 mg/dLCritically aaru07-416Kbc [facility] HospitalComment on above:Performed By: #### BMP #### [facility] [address] [place] [address] Dr. Karen PiercePotassium [Moles/Vol]3.9 mmol/LNormal3.5-5.1[facility] Comment on above:Performed By: #### BMP #### [facility] [address] [address] [address] Karen PierceSodium [Moles/Vol]139 mmol/XJahdaj142-924Syw [facility] Comment on above:Performed By: #### BMP #### [facility] [address] [address] [address] Karen PierceUrea nitrogen [Mass/Vol]21.0 mg/dLCritically high7.0-18.0The [facility] HospitalComment on above:Performed By: #### BMP #### [facility] [address] [address] [address] Karen PierceUrea nitrogen/Creatinine [Mass ratio]16.7 mg/mgNoSelect Medical OhioHealth Rehabilitation HospitalComment on above:Performed By: #### BMP #### [facility] [address] [address] [address] Karen PierceComprehensive Metabolic Panelon 68-61-1021Dsrcizi [Mass/Vol]4.5 g/dLNormal3.6-5.1[facility] SpecialistComment on above:Performed By: #### CMP, LIPD #### [facility] [address], [place] [id number]/Globulin [Mass ratio]2.0 {ratio}Normal1.0-2.5Noecu health beaufort hospitaln [facility] SpecialistComment on above:Performed By: #### CMP, LIPD #### [facility] [address], [place] [id number] [Catalytic activity/Vol]97 U/TWjmogu00-875Lxwxhqmv [facility] SpecialistComment on above:Performed By: #### CMP, LIPD #### [facility] [address], [place] [id number] [Catalytic activity/Vol]18 U/LNormal9-46NortUniversity Hospitals [facility] SpecialistComment on above:Result Comment: 04/25/2021 Female reference range changed.Performed By: #### CMP, LIPD #### [facility] [address], [place] [id number] gap [Moles/Vol]17 mmol/YPqdagb41-87Ahxiagjx [facility] SpecialistComment on above:Result Comment: Effective 05/31/2019 reference range changed.Performed By: #### CMP, LIPD #### [facility] [address], [place] [id number] [Catalytic activity/Vol]15 U/AQkkynu78-39Ruhtlyod [facility] SpecialistComment on above:Performed By: #### CMP, LIPD #### [facility] [address], [place] [id number] [Mass/Vol]0.55 mg/dLNormal0.30-1.20[facility] SpecialistComment on above:Performed By: #### CMP, LIPD #### [facility] [address], [place] [id number]/CREA17 RatioNormal6-22[facility]ortOhio [facility] Comment on above:Performed By: #### CMP, LIPD #### [facility] [address], [place] [id number] [Mass/Vol]9.8 mg/dLNormal8.6-10.2[facility] SpecialistComment on above:Performed By: #### CMP, LIPD #### [facility] [address], [place] [id number] [Moles/Vol]106 mmol/BFvjasb92-251Bohhwrob [facility] SpecialistComment on above:Performed By: #### CMP, LIPD #### [facility] [address], [place] [id number] [Moles/Vol]23 mmol/HRcbgjb30-46Tcabojen [facility] SpecialistComment on above:Performed By: #### CMP, LIPD #### [facility] [address], [place] [id number] [Mass/Vol]1.2 mg/dLNormal0.7-1.4Nortarizona state hospitaln [place] [facility] SpecialistComment on above:Performed By: #### CMP, LIPD #### [facility] [address], [place] [id number] mL/min/1.53m0Knspfy>60Nortarizona state hospitaln [place] [facility] SpecialistComment on above:Performed By: #### CMP, LIPD #### [facility] [address], [place] [id number] mL/min/1.60s3Qvb>60[facility]ortOhio [facility] Comment on above:Performed By: #### CMP, LIPD #### [facility] [address], [place] [id number] (S) [Mass/Vol]2.3 g/dLNormal1.9-3.7Nortarizona state hospitaln [place] [facility] SpecialistComment on above:Performed By: #### CMP, LIPD #### [facility] [address], [place] [id number] [Mass/Vol]105 mg/cFPxuj53-35Qnilovfo [facility] SpecialistComment on above:Result Comment: For FASTING Glucose --- ADA reference ranges: Normal 65-99 mg/dl Prediabetes 100-125 Diabetes >/= 126Performed By: #### CMP, LIPD #### [facility] [address], [place] [id number] [Moles/Vol]4.1 mmol/LNormal3.5-5.5NoCorey Hospital SpecialistComment on above:Performed By: #### CMP, LIPD #### [facility] [address], [place] [id number] [Mass/Vol]6.8 g/dLNormal6.1-8.1NortherTogus [facility] SpecialistComment on above:Performed By: #### CMP, LIPD #### [facility] [address], [place] [id number] [Moles/Vol]142 mmol/LUmyilj768-416Dkrmgxjz [facility] SpecialistComment on above:Performed By: #### CMP, LIPD #### [facility] [address], [place] [id number] nitrogen [Mass/Vol]20 mg/dLNormal7-25NoCore[facility] Hospital SpecialistComment on above:Performed By: #### CMP, LIPD #### [facility] [address], [place] [id number] Panelon 62-72-1744Ehmayeqkjfn [Mass/Vol]109 mg/dLLow 125-200NoCorey Hospital SpecialistComment on above:Result Comment: Low risk < 200mg/dL Borderline risk 201-239 mg/dl High risk > or equal to 240Performed By: #### CMP, LIPD #### [facility] [address], [place] [id number] in HDL [Mass/Vol]30 mg/dLLow>40NoCorey Hospital SpecialistComment on above:Result Comment: High Cardiovascular Risk HDL <40 mg/dL Low Cardiovascular Risk HDL > or equal to 60 mg/dlPerformed By: #### CMP, LIPD #### [facility] [address], [place] [id number] in LDL [Mass/Vol]54 mg/dLNormMercy Health [facility] SpecialistComment on above:Result Comment: LDL ATP III CLASSIFICATION LDL less than 100 mg/dl Optimal LDL 100-129 mg/dl Near or above optimal LDL 130-159 Borderline high LDL 160-189 High LDL greater than 189 mg/dl Very HighPerformed By: #### CMP, LIPD #### [facility] [address], [place] [id number] in VLDL [Mass/Vol]25 mg/dLNormMercy Health Fair[facility] Hospital SpecialistComment on above:Performed By: #### CMP, LIPD #### [facility] [address], [place] [id number].total/Cholesterol in HDL [Mass ratio]4 {ratio} NormalNorthern [facility] SpecialistComment on above:Performed By: #### CMP, LIPD #### [facility] [address], [place] [id number] [Mass/Vol]126 mg/gLAqogdq71-968Ozzywksk [facility] SpecialistComment on above:Result Comment: TRIG ATPIII CLASSIFICATIONS TRIG less than 150 mg/dl Normal TRIG 150-199 mg/dl Borderline High TRIG 200-500 mg/dl High TRIG greather than 500 mg/dl Very HighPerformed By: #### CMP, LIPD #### [facility] [address], [place] [id number] Vital Signs Date TimeVital SignValuePerforming EwwkhfhyfTdzckdby17-29-4804 14:24-0400Body .96 cmEharmony Emerson MD Work Phone: [facility]10-15-2025 14:24-0400 Body mass index (BMI) [Ratio]24.7 kg/z2PjromwStanley Emerson MD Work Phone: [facility]10-15-2025 14:24-0400 Body iazksh05.2 kgStanley Emerson MD Work Phone: 1(021)[address] [place], [place] 9825010-15-2025 14:24-0400 Diastolic blood jnigfukg05 mm[Hg]Stanley Emerson MD Work Phone: 1(407)[address] [place], [place] 9825010-15-2025 14:24-0400 Heart rate60 /Fior Emerson MD Work Phone: 1(453)[address] [place], [place] 9825010-15-2025 14:24-0400 Respiratory rate16 /Fior Emerson MD Work Phone: 1(463)[address] [place], [place] 9825010-15-2025 14:24-0400 SaO2% (BldA) [Mass fraction]96 %Stanley Emerson MD Work Phone: 1(519)[address] [place], [place] 9825010-15-2025 14:24-0400 Systolic blood dpuohnek011 mm[Hg]Stanley Emerson MD Work Phone: 1(126)[address] [place], [place] 9825006-11-2025 15:54-0400 Body yjdkrw873.96 cmEharmony Emerson MD Work Phone: 1(273)[address] [place], [place] 9825006-11-2025 15:54-0400 Body mass index (BMI) [Ratio]25.7 kg/m5SqpdmqStanley Emerson MD Work Phone: 1(049)[address] [place], [place] 9825006-11-2025 15:54-0400 Body mqmuet14.77 kgStanley Emerson MD Work Phone: 1(010)[address] [place], [place] 9825006-11-2025 15:54-0400 Diastolic blood ossfcstb56 mm[Hg]Stanley Emerson MD Work Phone: 1(237)[address] [place], [place] 9825006-11-2025 15:54-0400 Heart rate66 /Fior Emerson MD Work Phone: 1(485)[address] [place], [place] 9825006-11-2025 15:54-0400 Respiratory rate16 /Fior Emerson MD Work Phone: 1(949)214-[address] [place], [place] 4795506-11-2025 15:54-0400 SaO2% (BldA) [Mass fraction]99 %Stanley Emerson MD Work Phone: 1(075)[address] [place], [place] 9825006-11-2025 15:54-0400 Systolic blood azvzgllp12 mm[Hg]Stanley Emerson MD Work Phone: 1(635)[address] [place], [place] 9825005-22-2025 15:01-0400 Diastolic blood auapqzkb56 mm[Hg]Stanley Emerson MD Work Phone: 1(071)[address] [place], [place] 1054505-22-2025 15:01-0400Systolic blood wkijrbul65 mm[Hg]Stanley Emerson MD Work Phone: 1(755)[address] [place], [place] 1054505-19-2025 17:50-0400Diastolic blood lhxnpats62 mm[Hg]Stanley Emerson MD Work Phone: 1(219)[address] [place], [place] 9825005-19-2025 17:50-0400 Heart rate66 /Fior Emerson MD Work Phone: 1(025)[address] [place], [place] 9825005-19-2025 17:50-0400 Respiratory rate20 /Fior Emerson MD Work Phone: 1(624)[address] [place], [place] 9825005-19-2025 17:50-0400 SaO2% (BldA) [Mass fraction]95 %Stanley Emerson MD Work Phone: 1(089)[address] [place], [place] 9825005-19-2025 17:50-0400 Systolic blood lluvlgfw779 mm[Hg]Stanley Emerson MD Work Phone: 1(104)[address] [place], [place] 9825005-19-2025 14:20-0400 Body pfezhywqing99.6 [degF]Stanley Emerson MD Work Phone: 1(208)[address] [place], [place] 9825005-19-2025 13:50-0400 Inhaled oxygen flow rate2 L/Fior Emerson MD Work Phone: 1(704)[address] [place], [place] 9825005-19-2025 12:16-0400 Body aayzlc546.96 Mitra Emerson MD Work Phone: [facility]05-19-2025 12:16-0400 Body rfozlx27.26 kgStanley Emerson MD Work Phone: [facility]05-16-2025 14:43-0400 Body fuimlk310 cmRuby Montana MD Work Phone: [facility]05-16-2025 14:43-0400 Body mass index (BMI) [Ratio]25.68 kg/m2Ruby Montana MD Work Phone: [facility]05-16-2025 14:43-0400 Body ccqapx30.72 kgRuby Montana MD Work Phone: [address] [place], [place] 2967205-16-2025 14:43-0400 Diastolic blood guqyoupk93 mm[Hg]Ruby Montana MD Work Phone: [facility]05-16-2025 14:43-0400 Heart rate75 /minRuby Montana MD Work Phone: [facility]05-16-2025 14:43-0400 Systolic blood awfznvym05 mm[Hg]Ruby Montana MD Work Phone: [facility]05-13-2025 08:35-0400 Diastolic blood tnapmhoy81 mm[Hg]Julio Cesar Gaspar MD Work Phone: [facility]05-13-2025 08:35-0400Heart rate66 /minPalejandro Gaspar MD Work Phone: [facility]05-13-2025 08:35-0400Systolic blood mljoevpo749 mm[Hg]Julio Cesar Gaspar MD Work Phone: [facility]05-13-2025 07:05-0400Body edcyjjflnif06.1 [degF]Julio Cesar Gaspar MD Work Phone: [facility]05-13-2025 07:05-0400 Respiratory rate18 /minJulio Cesar Gaspar MD Work Phone: [facility]05-13-2025 07:05-1129BcW5% (BldA) [Mass fraction]94 %Julio Cesar Gaspar MD Work Phone: [facility]05-10-2025 16:30-0400Body Milly Gaspar MD Work Phone: [facility]05-10-2025 16:30-0400Body mass index (BMI) [Ratio]22.47 kg/s8VskpotJulio Cesar Gaspar MD Work Phone: [facility]05-10-2025 16:30-0400Body pebfvc28.38 kgJulio Cesar Gaspar MD Work Phone: [facility]05-01-2025 09:38-0400Body foajdrotuls62.6 [degF][facility]05-01-2025 09:38-0400 Diastolic blood jiogxaff21 mm[Hg][facility]05-01-2025 09:38-0400Heart rate72 /[facility]05-01-2025 09:38-0400Respiratory rate16 /[facility]05-01-2025 09:38-1481AxM3% (BldA) [Mass fraction]98 %[facility] 09-23-2024 09:38-0400Systolic blood eyjisxao511 mm[Hg][facility]04-29-2025 14:08-0400Body luxxjy192 Mitra Emerson MD Work Phone: [facility] HospitalBrzwdzfetx08-93-6965 14:08-0400Body mass index (BMI) [Ratio]26.06 kg/k4PatlqwStanley Emerson MD Work Phone: [facility] HospitalQlgcooqgvg36-22-8534 14:08-0400Body rixtlw19.08 kgStanley Emerson MD Work Phone: [facility] HospitalBdeghdfozx42-40-9197 09:40-0400Body wugtol261 cm Teo Al MD Work Phone: 1(265)169-[address] [place], [place] 2296704-18-2025 09:40-0400 Body mass index (BMI) [Ratio]26.32 kg/p6WrxtelTeo Al MD Work Phone: 1(581)229-[address] [place], [place] 2296704-18-2025 09:40-0400 Body yxogev18.99 kgTeo Al MD Work Phone: 1(557)[address] [place], [place] 2296704-18-2025 09:40-0400 Diastolic blood koxoqhmg81 mm[Hg]Teo Al MD Work Phone: 1(563)[address]04-18-2025 09:40-0400 Heart rate68 /minTeo Al MD Work Phone: 1(291)[address]04-18-2025 09:40-0400 Systolic blood ulxtkqvo100 mm[Hg]Teo Al MD Work Phone: 1(790)[address]03-19-2025 10:26-0400 Body .96 cmEharmony Emerson MD Work Phone: 1(043)[address]03-19-2025 10:26-0400 Body mass index (BMI) [Ratio]26.1 kg/y8TiemxqStanley Emerson MD Work Phone: 1(763)[address]03-19-2025 10:26-0400 Body pconhx08.19 kgStanley Emerson MD Work Phone: 1(797)[address]03-19-2025 10:26-0400 Diastolic blood titducqn44 mm[Hg]Stanley Emerson MD Work Phone: 1(927)[address]03-19-2025 10:26-0400 Heart rate65 /Fior Emerson MD Work Phone: 1(632)[address]03-19-2025 10:26-0400 Respiratory rate16 /Fior Emerson MD Work Phone: 1(814)[address]03-19-2025 10:26-0400 SaO2% (BldA) [Mass fraction]97 %Stanley Emerson MD Work Phone: [facility]03-19-2025 10:26-0400 Systolic blood pudohwvg490 mm[Hg]Stanley Emerson MD Work Phone: [facility]03-06-2025 11:13-0500 Body aoocig489 cmTeo Al MD Work Phone: 1(898)363-[address] [place], [place] 2296703-06-2025 11:13-0500 Body mass index (BMI) [Ratio]26.19 kg/q1DonvrcTeo Al MD Work Phone: 1(481)145-[address] [place], [place] 2296703-06-2025 11:13-0500 Body rncryr10.53 kgTeo Al MD Work Phone: 1(862)258-[address] [place], [place] 2296703-06-2025 11:13-0500 Diastolic blood mjvwkqiz35 mm[Hg]Teo Al MD Work Phone: 2(055)662-[address] [place], [place] 2296703-06-2025 11:13-0500 Heart rate67 /minTeo Al MD Work Phone: 6(082)426-[address] [place], [place] 2296703-06-2025 11:13-0500 Systolic blood quqbexap00 mm[Hg]Teo Al MD Work Phone: 9(204)681-[address] [place], [place] 2296702-20-2025 10:31-0500 Blood Pressure LocationHEATHER OMALLEY [facility]02-20-2025 10:31-0500Diastolic blood cjesbfcl13 mm[Hg]HEATHER OMALLEY [facility]02-20-2025 10:31-0500Heart rate68 /minHEATHER OMALLEY [facility]02-20-2025 10:31-0500Respiratory rate18 /minHEATHER OMALLEY [facility]02-20-2025 10:31-0500Systolic blood mm[Hg]HEATHER OMALLEY [facility]12-27-2024 09:47-0500Body oaluka263 cmTeo Al MD Work Phone: 7(011)500-[address] [place], [place] 2296712-27-2024 09:47-0500 Body mass index (BMI) [Ratio]26.58 kg/m1FufcofTeo Al MD Work Phone: 3(979)[address]12-27-2024 09:47-0500 Body iwzgif91.89 kgTeo Al MD Work Phone: 1(064)287-[address] [place], [place] 2296712-27-2024 09:47-0500 Diastolic blood mzvbxajm28 mm[Hg]Teo Al MD Work Phone: 6(500)445-[address] [place], [place] 2296712-27-2024 09:47-0500 Heart rate80 /minTeo Al MD Work Phone: 1(318)295-[address] [place], [place] 2296712-27-2024 09:47-0500 Systolic blood mm[Hg]Teo Al MD Work Phone: 6(693)884-[address] [place], [place] 2296712-19-2024 14:38-0500 Body xujaat570 cmEharmony Emerson MD Work Phone: [facility] HospitalKnogvluhrk17-42-9963 14:38-0500Body mass index (BMI) [Ratio]26.06 kg/r5OzdyryStanley Emerson MD Work Phone: [facility] HospitalGoybjmrgli01-68-5574 14:38-0500Body eknugu69.08 kgStanley Emerson MD Work Phone: [facility] HospitalWeikowfmad99-92-2278 14:38-0500Diastolic blood mm[Hg]Stanley Emerson MD Work Phone: [facility] HospitalCvwjvhxdti11-20-1583 14:38-0500Heart rate77 /min Stanley Emerson MD Work Phone: [phone] HospitalLclmgscfwr12-90-0675 14:38-2013AtB3% (BldA) [Mass fraction]97 %Stanley Emerson MD Work Phone: [phone] HospitalJoxzvmocir96-03-6363 14:38-0500Systolic blood nuwnhqxa265 mm[Hg]Stanley Emerson MD Work Phone: [phone] HospitalBwfxmlrtkt91-07-0601 11:14-0500Blood Pressure LocationPatamara SAMUELS [facility] [place] 329801-12-2024 11:14-0500Diastolic blood gspfrxer52 mm[Hg]Katia SAMUELS [facility] [place] 329801-12-2024 11:14-0500Heart rate79 /minKatia SAMUELS [facility] [place] 332881-12-2024 11:14-0500Systolic blood oddxtnsu101 mm[Hg]Katia SAMUELS [facility] [place] 329800-24-2024 11:18-0400Body atmubd762 cmEdludy Emerson MD Work Phone: 1(640)3421[facility] HospitalZkecbluesd79-40-1240 11:18-0400Body mass index (BMI) [Ratio]28.63 kg/j6AxywtqStanley Eemrson MD Work Phone: 1(772)5485[facility] HospitalCumupnjfdi70-81-3956 11:18-0400Body rchglo707.15 kgStanley Emerson MD Work Phone: 1(426)0716[facility] HospitalOvfkcqpchs92-03-7488 11:18-0400Heart rate82 /min Stanley Emerson MD Work Phone: 1([phone] HospitalTuoaootspy50-50-6001 11:18-6710EuU7% (BldA) [Mass fraction]97 %Stanley Emerson MD Work Phone: [facility] HospitalJxievlgdrj36-62-2790 12:45-0400Body .96 cmMD Stanley Emerson Work Phone: 1(513)[address]10-14-2024 12:45-0400 Body mass index (BMI) [Ratio]25.6 kg/m2MD Stanley Emerson Work Phone: 1(317)[address]10-14-2024 12:45-0400 Body wekwnamwzzf87.3 [degF]MD Stanley Emerson Work Phone: 1(571)[address] [place], [place] 9825010-14-2024 12:45-0400 Body cabkhn53.43 kgMD Stanley Emerson Work Phone: 1(662)[address]10-14-2024 12:45-0400 Diastolic blood bufvcutl29 mm[Hg]MD Stanley Emerson Work Phone: 1(928)167-[address] [place], [place] 4795510-14-2024 12:45-0400 Heart rate92 /minMD Stanley Emerson Work Phone: 1(154)175[address]10-14-2024 12:45-0400 SaO2% (BldA) [Mass fraction]99 %MD Stanley Emerson Work Phone: 1(556)389-[address] [place], [place] 4795510-14-2024 12:45-0400 Systolic blood flhkobht783 mm[Hg]MD Stanley Emerson Work Phone: 1(955)791-[address] [place], [place] 4795510-01-2024 15:19-0400 Body sdkogt238 cmLeanna [facility]10-01-2024 15:19-0400Body mass index (BMI) [Ratio]26.32 kg/m8AngkisJackson County [facility]10-01-2024 15:19-0400Body wwryqy02.99 [facility]Mill[facility]10-01-2024 15:19-0400Diastolic blood vrovvwgn52 mm[Hg][facility]10-01-2024 15:19-0400 Heart rate85 /minLeanne [facility]10-01-2024 15:19-0400Systolic blood mm[Hg][facility]09-24-2024 11:52-0400Body xkedpi098 cmEharmony Emerson MD Work Phone: [facility] HospitalSvueeosflx16-99-8447 11:52-0400Body mass index (BMI) [Ratio]28.63 kg/k4MrgnvbStanley Emerson MD Work Phone: [facility] HospitalUfzvguuzzx16-13-4328 11:52-0400Body wjxitz658.15 kgStanley Emerson MD Work Phone: [facility] HospitalNnxxaizpna08-80-6958 09:13-0400Body eukpbf332 cm Teo Al MD Work Phone: [facility]09-17-2024 09:13-0400 Body mass index (BMI) [Ratio]26.32 kg/z1DglfsoTeo Al MD Work Phone: [facility]09-17-2024 09:13-0400 Body azomdk40.99 kgTeo Al MD Work Phone: [facility]09-17-2024 09:13-0400 Diastolic blood javjzzrf75 mm[Hg]Teo Al MD Work Phone: [facility]09-17-2024 09:13-0400 Heart rate79 /minTeo Al MD Work Phone: [facility]09-17-2024 09:13-0400 Systolic blood dfqcirlt793 mm[Hg]Teo Al MD Work Phone: [facility]09-11-2024 11:48-0400 Body unfotb408.96 cmMD Stanley Emerson Work Phone: 1(567)[address] [place], [place] 9825009-11-2024 11:48-0400 Body mass index (BMI) [Ratio]28.2 kg/m2MD Stanley Singhchery Work Phone: 1(540)[address] [place], [place] 9825009-11-2024 11:48-0400 Body fdbltcrqoae38.1 [degF]MD Stanley Emerson Work Phone: 1(290)[address] [place], [place] 9825009-11-2024 11:48-0400 Body .79 kgMD Stanley Singhchery Work Phone: 1(104)[address] [place], [place] 9825009-11-2024 11:48-0400 Diastolic blood mm[Hg]MD Stanley Emerson Work Phone: 1(488)[address] [place], [place] 9825009-11-2024 11:48-0400 Heart rate76 /minMD Stanley Emerson Work Phone: 1(953)[address] [place], [place] 9825009-11-2024 11:48-0400 Respiratory rate18 /minMD Stanley Singhchery Work Phone: 1(057)[address] [place], [place] 9825009-11-2024 11:48-0400 SaO2% (BldA) [Mass fraction]96 %MD Stanley Emerson Work Phone: 1(893)[address] [place], [place] 9825009-11-2024 11:48-0400 Systolic blood mm[Hg]MD Stanley Emerson Work Phone: 1(618)[address] [place], [place] 9825008-30-2024 15:00-0400 Body csejnk063.96 cmMD Stanley Emerson Work Phone: 1(519)[address] [place], [place] 9825008-30-2024 11:19-0400 Diastolic blood pzzoojqq77 mm[Hg]MD Stanley Emerson Work Phone: 1(308)[address] [place], [place] 9825008-30-2024 11:19-0400 Heart rate64 /minMD Stanley Emerson Work Phone: 1(157)[address] [place], [place] 9825008-30-2024 11:19-0400 Systolic blood grxzbuxs77 mm[Hg]MD Stanley Emerson Work Phone: 1(053)683-[address] [place], [place] 4795508-30-2024 11:13-0400 Respiratory rate20 /minMD Stanley Emerson Work Phone: 1(168)[address] [place], [place] 9825008-30-2024 11:13-0400 SaO2% (BldA) [Mass fraction]96 %MD Stanley Emerson Work Phone: 1(959)[address] [place], [place] 9825008-30-2024 04:44-0400 Body .6 kgMD Stanley Emerson Work Phone: 1(052)[address] [place], [place] 9825008-29-2024 23:41-0400 Body tidjpejxsyb22.2 [degF]MD Stanley Emerson Work Phone: 1(940)[address] [place], [place] 9825008-26-2024 10:00-0400 Inhaled oxygen flow rate2 L/minMD Stanley Emerson Work Phone: 1(602)[address] [place], [place] 9825008-21-2024 09:35-0400 Diastolic blood muvgwunw47 mm[Hg]MD Stanley Emerson Work Phone: 1(134)[address] [place], [place] 9825008-21-2024 09:35-0400 Heart rate65 /minMD Stanley Emerson Work Phone: 1(561)[address] [place], [place] 9825008-21-2024 09:35-0400 Respiratory rate16 /minMD tSanley Emerson Work Phone: 1(746)[address] [place], [place] 9825008-21-2024 09:35-0400 SaO2% (BldA) [Mass fraction]97 %MD Stanley Emerson Work Phone: 1(817)[address] [place], [place] 9825008-21-2024 09:35-0400 Systolic blood jwysnnwx958 mm[Hg]MD Stanley Emerson Work Phone: 1(411)[address] [place], [place] 9825008-21-2024 07:41-0400 Body onjpex637.96 cmMD Stanley Emerson Work Phone: 1(507)[address] [place], [place] 9825008-21-2024 07:41-0400 Body oflkgl927.32 kgMD Stanley Emerson Work Phone: 1(418)[address] [place], [place] 9825005-29-2024 10:57-0400 Body xjwlvo492.96 cmMD Peteludy Idania Work Phone: 1(307)[address] [place], [place] 9825005-29-2024 10:57-0400 Body mass index (BMI) [Ratio]28 kg/m2MD Stanley Emerson Work Phone: 1(451)[address] [place], [place] 9825005-29-2024 10:57-0400 Body iuhmtutderf02.8 [degF]MD Stanley Emerson Work Phone: 1(671)[address] [place], [place] 9825005-29-2024 10:57-0400 Body ikethd84.1 kgMD Peteludy Idania Work Phone: 1(922)[address] [place], [place] 9825005-29-2024 10:57-0400 Diastolic blood isjfemnt24 mm[Hg]MD Stanley Emerson Work Phone: 1(624)[address] [place], [place] 9825005-29-2024 10:57-0400 Heart rate71 /minMD ludy Emerson Work Phone: 1(318)[address] [place], [place] 9825005-29-2024 10:57-0400 Respiratory rate18 /minMD Stanley Emerson Work Phone: 1(447)[address] [place], [place] 9825005-29-2024 10:57-0400 SaO2% (BldA) [Mass fraction]98 %MD Stanley Emerson Work Phone: 1(134)[address] [place], [place] 9825005-29-2024 10:57-0400 Systolic blood akwgqimu882 mm[Hg]MD Stanley Emerson Work Phone: 1(394)[address] [place], [place] 9825004-25-2024 10:47-0400 Body lkysit640.96 cmMD Peteludy Idania Work Phone: 1(756)[address] [place], [place] 9825004-25-2024 10:47-0400 Body mass index (BMI) [Ratio]28.6 kg/m2MD Peteludy Idania Work Phone: [facility]04-25-2024 10:47-0400 Body rztooivxujp16.8 [degF]MD Stanley Emerson Work Phone: 1(274)588-[address] [place], [place] 1634604-25-2024 10:47-0400 Body ihfufo608.15 kgMD Stanley Emerson Work Phone: 1(189)627-[address] [place], [place] 4795504-25-2024 10:47-0400 Diastolic blood nsvjizcx94 mm[Hg]MD Stanley Emerson Work Phone: 1(819)698-[address] [place], [place] 1634604-25-2024 10:47-0400 Heart rate64 /minMD Stanley Emerson Work Phone: 1(766)235-[address] [place], [place] 4795504-25-2024 10:47-0400 Respiratory rate16 /minMD Stanley Emerson Work Phone: 1(937)986-[address] [place], [place] 1634604-25-2024 10:47-0400 SaO2% (BldA) [Mass fraction]98 %MD Stanley Emerson Work Phone: [facility]04-25-2024 10:47-0400 Systolic blood mytvabpk090 mm[Hg]MD Stanley Emerson Work Phone: 1(906)933-[address] [place], [place] 1634602-05-2024 14:17-0500 Blood Pressure LocationPatrick AdKeeper [facility]02-05-2024 14:17-0500Diastolic blood akhxqahd81 mm[Hg]Katia SAMUELS [facility]02-05-2024 14:17-0500Heart rate70 /minPatrick [employer]Keeper [facility]02-05-2024 14:17-0500Respiratory rate16 /minPatrick SAMUELS [facility]02-05-2024 14:17-0500Systolic blood etnzvexu946 mm[Hg]Katia SAMUELS [facility]11-21-2023 14:00-0500Body obronf449.96 cmAreggie Griffin Other noApplied [employer] Inc Other 11-21-2023 14:00-0500Body mass index (BMI) [Ratio] 28.73 kg/m2Preston Griffin Other [employer] Other 11-21-2023 14:00-0500Body gyagiwyljhn28.8 [degF]Preston Griffin Other [employer] Other 11-21-2023 14:00-0500Body imtnvl457.52 kgPreston Griffin Other [employer] Other 11-21-2023 14:00-0500Diastolic blood wkugvetx243 mm[Hg]Preston Griffin Other [employer] Other 11-21-2023 14:00-0500Respiratory rate18 /minPreston Griffin Other [employer] Other 11-21-2023 14:00-2149BzH4% (BldA) [Mass fraction]96 % Preston Griffin Other [employer] Other 11-21-2023 14:00-0500Systolic blood bdjjkefm465 mm[Hg] Preston Griffin Other [employer] Other 10-17-2023 13:38-0400Blood Pressure LocationPaselect medical [facility] ARLENE [facility]2023 13:38-0400Diastolic blood jqacbgtq875 mm[Hg]Katia SAMUELS [facility] [place] 329800-17-2023 13:38-0400Heart rate72 /minPatamara SAMUELS [facility] [place] 332880-17-2023 13:38-0400Systolic blood pevqtygw899 mm[Hg]Katia [facility]S [facility]30-2023 09:57-0400Body kuhzsz787.96 cmEharmony Emerson Work Phone: [phone]-Hjuaa [facility] 250 DO Work Phone: 1(804) 759-163308-30-2023 09:57-0400Body mass index (BMI) [Ratio] 27.35 kg/u8WozvayStanley Emerson Work Phone: mp143-7036DP-Cqsyc [facility] 250 DO Work Phone: 1(477) 829-409808-30-2023 09:57-0400Body surface area Derived from formula2.23 u2NsztknStanley Emerson Work Phone: mp987-4256WS-Csrrm [facility] 250 DO Work Phone: 1(744) 513-748508-30-2023 09:57-0400Body fwignj04.62 kgStanley Emerson Work Phone: mp791-8953KJ-Yinsz [facility] 250 DO Work Phone: 1(217) 158-270008-30-2023 09:57-0400Diastolic blood siadcgwc62 mm[Hg] Stanley Emerson Work Phone: mp411-1921XS-Pfiaf [facility] 250 DO Work Phone: 1(249) 327-192208-30-2023 09:57-0400Heart rate72 /minEharmony Emerson Work Phone: mp435-1764WT-Lzdri [facility] 250 DO Work Phone: 1(350) 742-344608-30-2023 09:57-0400Systolic blood mm[Hg] Stanley Emerson Work Phone: mp343-5482XZ-Gcqln [facility] 250 DO Work Phone: 1(199) 674-488103-29-2023 14:30-0400Body rshare446.96 cmCarlene Kasper Other [employer] Other 03-29-2023 14:30-0400Body mass index (BMI) [Ratio] 26.32 kg/x6YrlipaCarlene Kasper Other [employer] Other 03-29-2023 14:30-0400Body qxmortllpyd08.8 [degF]Carlene Kasper Other [employer] Other 03-29-2023 14:30-0400Body .99 kgCarlene Kasper Other [employer] Other 03-29-2023 14:30-0400Diastolic blood hdyzkvww14 mm[Hg] Carlene Kasper Other [employer] Other 03-29-2023 14:30-7804GcC7% (BldA) [Mass fraction]96 % Carlene Kasper Other [employer] Other 03-29-2023 14:30-0400Systolic blood qzgqyttr891 mm[Hg] Carlene Kasper Other [employer] Other 03-08-2023 07:25-0500Blood Pressure LocationPatamara AdKeeper [facility]03-08-2023 07:25-0500Diastolic blood iuduoyri84 mm[Hg]Katia SAMUELS [facility]03-08-2023 07:25-0500Heart rate70 /minBrightView Systems [facility]03-08-2023 07:25-0500Respiratory rate16 /minPaSocialBrowse [facility]03-08-2023 07:25-0500Systolic blood qqosbocf279 mm[Hg]Katia SAMUELS [facility]03-02-2023 09:45-0500Body xfzjes530.96 cmMattlucy Valentine Other [employer] Other 03-02-2023 09:45-0500Body mass index (BMI) [Ratio] 26.32 kg/a8MbcjxkoMargarito Valentine Other [employer] Other 03-02-2023 09:45-0500Body .2 [degF] Margarito Valentine Other [employer] Other 03-02-2023 09:45-0500Body ctfazl84.99 kgMattlucy Valentine Other [employer] Other 03-02-2023 09:45-0500Diastolic blood gnuhhlve31 mm[Hg] Margarito Valentine Other [employer] Other 03-02-2023 09:45-6206QlK5% (BldA) [Mass fraction]97 % Margarito Langsarina Other [employer] Other 03-02-2023 09:45-0500Systolic blood zalbjgis016 mm[Hg] Margarito Serge Other [employer] Other 02-08-2023 07:34-0500Body eemswpuvief38.9 [degF]MD Stanley Emerson Work Phone: 1(456)670-[address] [place], [place] 4795502-08-2023 07:34-0500 Diastolic blood jgqfzves06 mm[Hg]MD Stanley Emerson Work Phone: 1(019)[address] [place], [place] 9825002-08-2023 07:34-0500 Heart rate87 /minMD Stanley Emerson Work Phone: 1(957)194-[address] [place], [place] 4795502-08-2023 07:34-0500 Respiratory rate18 /minMD Stanley Emerson Work Phone: 1(818)990-[address] [place], [place] 4795502-08-2023 07:34-0500 SaO2% (BldA) [Mass fraction]94 %MD Stanley Emerson Work Phone: 1(824)892-[address] [place], [place] 4795502-08-2023 07:34-0500 Systolic blood gzxhixtl196 mm[Hg]MD Stanley Emerson Work Phone: 1(675)242-[address] [place], [place] 4795502-08-2023 05:46-0500 Body xvnynt32 kgMD Stanley Emerson Work Phone: 1(771)[address] [place], [place] 9825002-07-2023 16:27-0500 Inhaled oxygen flow rate6 L/minMD Stanley Emerson Work Phone: 1(805)[address] [place], [place] 9825002-07-2023 10:06-0500 Body kgverk146.42 cmMD Stanley Emerson Work Phone: 1(428)[facility] [place], [place] 4795502-07-2023 10:06-0500 Body mass index (BMI) [Ratio]27.3 kg/m2MD Stanley Emerson Work Phone: [facility]01-25-2023 10:00-0500 Body znmboc420.96 cmMakaren Valentine Other [employer] Other 01-25-2023 10:00-0500Body mass index (BMI) [Ratio] 26.32 kg/o0GettpocMargarito Valentine Other [employer] Other 01-25-2023 10:00-0500Body ewdxzbiifpv84.8 [degF] Margarito Valentine Other [employer] Other 01-25-2023 10:00-0500Body evbdih90.99 kgMakaren Valentine Other [employer] Other 01-25-2023 10:00-0500Diastolic blood rqmgdaro70 mm[Hg] Margarito Valentine Other [facility] Other 01-25-2023 10:00-2625JjI3% (BldA) [Mass fraction]95 % Margarito Valentine Other [employer] Other 01-25-2023 10:00-0500Systolic blood scwsyeqb146 mm[Hg] Margarito Valentine Other [facility] Other 01-18-2023 13:07-0500Body pbdkuc729.96 cmMD Stanley Emerson Work Phone: [facility]01-18-2023 13:07-0500 Body gdgems35.44 kgMD Stanley Emerson Work Phone: 1(567)214-[address] [place], [place] 1634601-12-2023 12:00-0500 Body .96 cmMakaren Valentine Other no[employer] Other 01-12-2023 12:00-0500Body mass index (BMI) [Ratio] 26.32 kg/u4PfxpcyrMargarito Valentine Other [employer] Other 01-12-2023 12:00-0500Body ocijulegash83.2 [degF] Margarito Serge Other [employer] Other 01-12-2023 12:00-0500Body runzse42.99 kgMadeandrelucy Valentine Other [employer] Other 01-12-2023 12:00-0500Diastolic blood teezisqp45 mm[Hg] Margarito Valentine Other [employer] Other 01-12-2023 12:00-6912VvP6% (BldA) [Mass fraction]98 % Margarito Valentine Other [employer] Other 01-12-2023 12:00-0500Systolic blood bybdssof291 mm[Hg] Margarito Valentine Other [facility] Other 01-10-2023 12:00-0500Body phifpq101.96 Magen Griffin Other [employer] Other 01-10-2023 12:00-0500Body mass index (BMI) [Ratio] 26.42 kg/m2Preston Griffin Other [employer] Other 01-10-2023 12:00-0500Body znkahanyqge95.6 [degF]Preston Griffin Other [employer] Other 01-10-2023 12:00-0500Body iwzfch20.35 kgPreston Girffin Other [employer] Other 01-10-2023 12:00-0500Diastolic blood mm[Hg] Preston Griffin Other [employer] Other 01-10-2023 12:00-0500Respiratory rate20 /minPreston Griffin Other [employer] Other 01-10-2023 12:00-8405HcT6% (BldA) [Mass fraction]98 % Preston Griffin Other [employer] Other 01-10-2023 12:00-0500Systolic blood wxqxylse708 mm[Hg] Preston Griffin Other [employer] Other 01-09-2023 15:38-0500Body hcucxy767.96 cmEdludy SinghDiViNetworks Work Phone: [phone]-Gpuqo [facility] [employer] 250 DO Work Phone: 1(748) 936-797901-09-2023 15:38-0500Body mass index (BMI) [Ratio] 26.45 kg/c8KlmphfStanley Emerson Work Phone: mp381-5587XA-Agahk [facility] 250 DO Work Phone: 1(534) 181-921201-09-2023 15:38-0500Body surface area Derived from formula2.2 l9LonsimStanley Emerson Work Phone: mp017-9323NB-Zagbl [facility] 250 DO Work Phone: 1(202) 183-733201-09-2023 15:38-0500Body fwvate70.44 kgEdludy Layla Luischery Work Phone: 1(530) 524-3810200-0804ZQ-Cizpl [facility] 250 DO Work Phone: 1(265) 820-815101-09-2023 15:38-0500Diastolic blood udbltjnf38 mm[Hg] Stanley Emerson Work Phone: 1(282) [phone]-Qrnqg [facility] 250 DO Work Phone: 1(650) 730-796401-09-2023 15:38-0500Heart rate71 /minEdludy Layla Luischery Work Phone: 1(613) 258-4147654-5593LK-Pzprm [facility] 250 DO Work Phone: 1(759) 553-761701-09-2023 15:38-0500Systolic blood eskeoqsy359 mm[Hg] Stanley Emerson Work Phone: 1(780) 744-2694337-1425DH-Wngzz [facility] 250 DO Work Phone: 1(722) 246-257912-28-2022 11:53-0500Body plcsnfrvcec12.8 [degF]MD Stanley Emerson Work Phone: [facility]12-28-2022 11:53-0500 Diastolic blood gbqbtetl67 mm[Hg]MD Stanley Emerson Work Phone: [facility]12-28-2022 11:53-0500 Heart rate78 /minMD Stanley Emerson Work Phone: [facility]12-28-2022 11:53-0500 Respiratory rate16 /minMD Stanley Emerson Work Phone: [facility]12-28-2022 11:53-0500 SaO2% (BldA) [Mass fraction]97 %MD Stanley Emerson Work Phone: [facility]12-28-2022 11:53-0500 Systolic blood dukiazvh845 mm[Hg]MD Stanley Emerson Work Phone: [facility]12-28-2022 06:02-0500 Body vkuylf20.8 kgMD Peteludy Emerson Work Phone: [facility]12-27-2022 11:48-0500 63 1Eharmony Emerson Work Phone: 1(298) [phone]-Qtjci [facility] 250 DO Work Phone: Comment on above:WQCWRFFS0415-17-2090 12:08-0500Body eiakda390.96 cmMD Peteludy Emerson Work Phone: [facility] Encounters Encounter DateEncounter TypeCare ProviderFacilityStart: 35-41-6589zfqaqsxich Blanca X OrzechFacility:EU evueStart: 03-18-2025 End: 99-40-4619Elppsqqss Result EncounterGeneric External Data ProviderNOMS External Department UnsolicitedStart: 03-18-2025 End: 82-85-3272Ofcddewun Result EncounterGeneric External Data ProviderNOMS External Department UnsolicitedStart: 03-10-2025 End: 61-96-5209glycnpmocgYubdfz X OrzechFacility:EU evueStart: 03-10-2025 End: 95-30-7027Gwshtbp encounter procedureAurora X Orzech [facility] start: 03-09-2025 End: 35-21-3577nfljfpwbnvFvcwhk J Hemeyer MD Work Phone: [facility] Work Phone: Start: 03-09-2025 End: 08-10-3785Ovvksij encounter Julianne Griffin MD-[facility] Work Phone: Start: 02-28-2025 End: 05-38-7743Sxovaistp Result EncounterGeneric External Data ProviderNOMS External Department UnsolicitedStart: 02-28-2025 End: 63-69-6200Aacfqcuqb Result EncounterGeneric External Data ProviderNOMS External Department UnsolicitedStart: 61-12-8239Bxe-patient / Non-visitPrseton Griffin MD-[facility] Work Phone: Start: 02-10-2025 End: 58-48-2017pzgyvvgowsXxvkbe X OrzechFacility:EU BellevueStart: 02-10-2025 End: 41-16-5776Gltwflw encounter procedureAurora X Orzech [facility] start: 02-02-2025 End: 26-08-6555Vqkhqcavt Result EncounterGeneric External Data ProviderNOMS External Department UnsolicitedStart: 02-02-2025 End: 89-37-4872Otksbkvfv Result EncounterGeneric External Data ProviderNOMS External Department UnsolicitedStart: 07-56-2277wacayyworlUncgns Monica Facility:EU [place]Start: 01-12-2025 End: 72-42-3468niwsmpforjVkxdcm TannaFacility:EU BellevueStart: 01-12-2025 End: 13-76-4635Xlqocgj encounter procedureLauren Monica [facility] start: 12-14-2024 End: 70-37-7509hwfpbjxjfwGmysmt TannaFacility:EU BellevueStart: 12-14-2024 End: 51-99-3214Qbwocif encounter procedureLauren Monica [facility] start: 11-16-2024 End: 13-29-9722ukdjhqexjkSggvnmr R WATERSFacility:FTMCStart: 11-16-2024 End: 68-42-3418Hsd Drop offKatia SAMUELS [facility] Start: 11-16-2024 End: 26-50-8181iweqbtxhekLyrzite R WATERSFacility:EU [place]kyStart: 11-16-2024 End: 03-41-9601Qhhxpjy encounter procedureKatia SAMUELS [facility] [place] Start: 11-09-2024 End: 69-55-3416Oegnwp Reji Emerson MD Work Phone: noMS CI FM 100Start: 11-09-2024 End: 04-90-7333Nymvbt flowsheetStanley Emerson MD Work Phone: NOOG CI FM 100Start: 11-09-2024 End: 21-72-6888Whakax outpatient visit 25 minutesEdludy Emerson MD Work Phone: noms CI FM 100Comment on above:Venous insufficiency of both lower extremities (Primary Dx); Venous stasis dermatitis of right lower extremity; 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 disturbance, psychotic disturbance, mood disturbance, or anxiety (HCC)Start: 11-09-2024 End: 75-13-6036ezkkfxvascZGFZNV J HEMEYERNot AvailableStart: 11-03-2024 End: 71-86-7136yuvymtetnlOvdzue J Hemeyer MD Work Phone: [facility] Work Phone: Start: 11-03-2024 End: 01-59-9949Gbxsipd encounter Kandy Emerson MD Work Phone: [facility] Work Phone: Start: 11-02-2024 End: 18-72-1459opjpeqnevnHNKeysha OMALLEYFacility:EU BellevueStart: 11-02-2024 End: 15-22-4949Ptqyydl encounter procedureHEATHER OMALLEY [facility] start: 10-27-2024 End: 91-80-8775Ljgikkcmv Result EncounterGeneric External Data ProviderNOMS External Department UnsolicitedStart: 10-27-2024 End: 52-55-7702Gjhygzspy Result EncounterGeneric External Data ProviderNOMS External Department UnsolicitedStart: 87-58-1260Yst-patient / Non-visitEdludy Emerson MD Work Phone: [facility] GroupLoc[facility] Work Phone: Start: 10-14-2024 End: 36-08-1982Dlighgdrzhlt care manage srvc 14 day dischargeStanley Emerson MD Work Phone: NOMS CI FM 100Comment on above:Pneumonia of left lower lobe due to infectious organism; Encounter for examination following treatment at hospital; Lower extremity edema; Delirium due to another medical conditionStart: 10-14-2024 End: 25-22-7236kgvfylhrjwTRWHMO J HEMEYERNot AvailableStart: 10-13-2024 End: 85-20-1172Frynaj OnlyStanley Emerson MD Work Phone: NOMS CI FM 100Comment on above:Peripheral vascular disease (CMS/HCC) (Primary Dx); Presence of stent in arteryStart: 58-68-2682Gsr-patient / Non-visitEdludy Emerson MD Work Phone: [facility] GroupE[facility] Work Phone: Start: 48-93-3788shufhuprnuTIPW J [facility] Hospitaltart: 75-77-9886Ngijhcbrg for preprocedural cardiovascular examinationRUBY Rich [facility] Start: 10-11-2024 End: 30-47-5145Lshcttchr to same day surgery Cyndi Emerson MD Work Phone: [facility]ventional Rad[facility] Work Phone: Start: 10-11-2024 End: 36-23-0095vubkoxjjjjBaewxr J HemeyerFacility:[facility]tart: 10-08-2024 End: 68-86-7505AlbryjkdtzzmljuIbxp J Quan MD Work Phone: [facility] Work Phone: Start: 10-08-2024 End: 59-34-3898Lijxkl consultation new/estab patient 80 Tevin Montana MD Work Phone: [facility] CenterComment on above: Cardiomyopathy, ischemic (Primary Dx); [...] Pre-operative cardiovascular examination, supraventricular arrhythmiaStart: 10-08-2024 End: 56-32-9881Klzmhrn encounter statusRuby Montana MD Work Phone: [facility] Work Phone: Start: 10-08-2024 End: 96-09-0108Dbyjcrpfprtnpili arrhythmiaRuby Montana MD Work Phone: [facility] Work Phone: Start: 10-08-2024 End: 30-60-3469Lfkkhwcvcin arrhythmiaRuby Montana MD Work Phone: [facility] Work Phone: Start: 10-08-2024 End: 90-41-0273hgwkdqcjpmVSVW J [facility] AmbulatoryStart: 10-08-2024 End: 37-15-3738Dkatsxbwo for preprocedural cardiovascular examinationRUBY [place] [facility] AmbulatoryStart: 10-05-2024 End: 04-68-9505boijndpnakCvkahcs R WATERSFacility:EU [place]kyStart: 10-05-2024 End: 95-01-6458Iojukzt encounter procedurePatrick Isabel ARLENE [facility] Dominic Start: 10-04-2024 End: 99-85-7398Bsovnodbon and management of inpatientPalejandro Gaspar MD Work Phone: [facility] LabComment on above: ArrivedStart: 10-02-2024 End: 76-50-1873Cslgxrjoy Result EncounterGeneric External Data ProviderNOMS External Department UnsolicitedStart: 10-02-2024 End: 57-08-2265Ojlzuvrpp Result EncounterGeneric External Data ProviderNOMS External Department UnsolicitedStart: 10-02-2024 End: 73-86-5141Iahkasjznf and management of inpatientPnayaet Hubert CASILLAS Work Phone: stCZ Med SurgComment on above:Lower extremity edema (Primary Dx); Delirium due to another medical condition; Cognitive and behavioral changesStart: 10-01-2024 End: 21-17-2728ezibgrbyrsQimckue [facility] Work Phone: Start: 10-01-2024 End: 67-54-8816Eyliqazv Elmira Bo MD Work Phone: [facility]-LAB Path [facility] HospStart: 06-72-3934ahkgqzypjtDxgeyb J HemeyerFacility:[facility]stowntart: 10-01-2024 End: 00-64-9062Oblzrafrf Result EncounterGeneric External Data ProviderNOMS External Department UnsolicitedStart: 10-01-2024 End: 77-13-8189Treeubslu Result EncounterGeneric External Data ProviderNOMS External Department UnsolicitedStart: 09-28-2024 End: 70-55-4752pvceqegwarPxolqc A DiabGrand [facility] Work Phone: Start: 09-28-2024 End: 54-37-4521Pxeenelk Elmira Bo MD Work Phone: [facility]-LAB [facility] HospStart: 09-28-2024 End: 93-45-1752Wlqrwnirj Result EncounterGeneric External Data ProviderNOMS External Department UnsolicitedStart: 09-28-2024 End: 61-82-4258Jvuoqdydm Result EncounterGeneric External Data ProviderNOVT External Department UnsolicitedStart: 09-23-2024 End: 44-70-7067Wlkrlmr encounter procedureC[facility] Physician GroupE[facility] Work Phone: Start: 09-23-2024 End: 48-62-3104mtmfhqlfpiVggedu J HemeyerMedina Hospital Work Phone: Start: 09-21-2024 End: 73-63-3798Ssyacy outpatient visit 25 minutesStanley Emerson MD Work Phone: NOMS CI FM 100Comment on above: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 disturbance, psychotic disturbance, mood disturbance, or anxiety (CMS/HCC); Hallucinations; Need for prophylaxis against urinary tract infection; Indwelling urinary catheter present; Former smoker; Polypharmacy; OverweightStart: 09-21-2024 End: 00-22-2425Gzqjtjeloise Emerson MD Work Phone: [facility] CI FM 100Start: 09-21-2024 End: 59-92-2885Qqroooeloise Emerson MD Work Phone: [facility] CI FM 100Start: 09-21-2024 End: 42-46-8135tdsnaknzgxDNRRIG J HEMEYERNot AvailableStart: 09-10-2024 End: 53-80-3632Pdywxg outpatient visit 25 minutesTeo Al MD Work Phone: [facility]hillComment on above:Cardiomyopathy, ischemic; 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 of [place] heart without angina pectoris; S/P PTCA (percutaneous transluminal coronary angioplasty); ST elevation myocardial infarction (STEMI), unspecified artery (Multi); Paroxysmal atrial fibrillation (Multi); High risk medication use; Essential hypertension; Abdominal aortic aneurysm (AAA) greater than 5.5 cm in diameter in male; Dyslipidemia; Stage 3a chronic kidney disease (Multi); Former smoker; BMI 26.0-26.9,adultStart: 09-10-2024 End: 82-99-0623bddhpgzqmmRJTMLU M [facility] AmbulatoryStart: 09-09-2024 End: 13-86-1993herqdpkvofAmurlb J GaleaFacility:EU BellevueStart: 09-02-2024 End: 79-66-9983Arsjwxctg Result EncounterGeneric External Data ProviderNOMS External Department UnsolicitedStart: 09-02-2024 End: 90-35-6211Wfcmtxiwq Result EncounterGeneric External Data ProviderNOMS External Department UnsolicitedStart: 08-23-2024 End: 16-49-5991Bpsbamavs Result EncounterGeneric External Data ProviderNOMS External Department UnsolicitedStart: 08-23-2024 End: 53-27-5841Jxyrkviep Result EncounterGeneric External Data ProviderNOMS External Department UnsolicitedStart: 08-12-2024 End: 91-22-3139czyehtyxybPZ-C JENNIFER E PERRYFacility:EU BellevueStart: 08-11-2024 End: 56-70-5915hwhrfyjehvYioduo J Hemeyer MD Work Phone: [facility] Work Phone: Start: 08-11-2024 End: 56-14-5439Oyljeia encounter Kandy Emerson MD Work Phone: [facility] Work Phone: Start: 08-06-2024 End: 19-10-4636Sshulzrtrq hospital visit by Hong Alfaro Echo[facility] on above:ST elevation myocardial infarction (STEMI), unspecified artery (Multi); Cardiomyopathy, ischemic; 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 of h[place]ai heart without angina pectoris; S/P PTCA (percutaneous transluminal coronary angioplasty)Start: 08-06-2024 End: 89-71-2727eucblnpplqGMWPEI M [facility] Hospitaltart: 14-02-4685Pdi-patient / Non-visitEdludy Emerson MD Work Phone: [facility] GroupLocated Within [facility] Work Phone: Start: 07-29-2024 End: 22-02-0315frqhglegnlXqthmsm R WATERSFacility:FTMCStart: 07-29-2024 End: 17-25-5197pzrcyybfczGgsaeuh R WATERSFacility:EU SanduskyStart: 07-29-2024 End: 00-56-7298Ndcftm outpatient visit 40 minutesTeo Al MD Work Phone: [facility] CenterComment on above:Cardiomyopathy, ischemic (Primary Dx); 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 of h[place]ai heart without angina pectoris; Paroxysmal atrial fibrillation (Multi); High risk medication use; S/P PTCA (percutaneous transluminal coronary angioplasty); ST elevation myocardial infarction (STEMI), unspecified artery (Multi); Infrarenal abdominal aortic aneurysm (AAA) without rupture ([facility]-HCC); Essential hypertension; Dyslipidemia; Stage 3a chronic kidney disease ([facility]); Transient cerebral ischemia, unspecified type; Hematuria, unspecified type; Hyperthyroidism; BMI 26.0-26.9,adult; Former smokerStart: 07-29-2024 End: 47-51-4683utkpsviydyVQRKAD [facility] AmbulatoryStart: 07-23-2024 End: 21-06-0945Pmexyitil Result EncounterGeneric External Data ProviderNOMS External Department UnsolicitedStart: 07-23-2024 End: 38-93-9925Psrclglvm Result EncounterGeneric External Data ProviderNOMS External Department UnsolicitedStart: 07-15-2024 End: 93-36-7291kndvonwlndCP-C JENNIFER E PERRYFacility:EU BellevueStart: 07-15-2024 End: 28-65-4731Jdetzgw encounter procedureHEATHER OMALLEY [facility] start: 07-13-2024 End: 48-99-7005Xsxscyhnj Result EncounterGeneric External Data ProviderNOMS External Department UnsolicitedStart: 07-13-2024 End: 86-49-9816Qcxviuyvg Result EncounterGeneric External Data ProviderNOMS External Department UnsolicitedStart: 06-29-2024 End: 15-42-8110Prynkyvhu Result EncounterSluh Sequeira MD Work Phone: noms External Department UnsolicitedStart: 06-29-2024 End: 17-23-1226Wbjehkfmg Result EncounterSluh Sequeira MD Work Phone: noms External Department UnsolicitedStart: 06-25-2024 End: 26-02-4592Wicduqggd Result EncounterGeneric External Data ProviderNOMS External Department UnsolicitedStart: 06-25-2024 End: 84-44-5862Ethorygac Result EncounterGeneric External Data ProviderNOMS External Department UnsolicitedStart: 06-22-2024 End: 85-45-9282Ibyiiylkp Mishel Emerson MD Work Phone: NOMS CI FM 100Start: 06-01-2024 End: 70-69-2473uuqoerxlxfBmypwk X OrzechFacility:EU SanduskyStart: 06-01-2024 End: 89-84-3859Iquvbbi encounter procedureAurora X Orzech [facility] [place] Start: 05-25-2024 End: 50-75-8200Udugfangu Result EncounterGeneric External Data ProviderNOMS External Department UnsolicitedStart: 05-25-2024 End: 49-43-4804Wawahtroa Result EncounterGeneric External Data ProviderNOMS External Department UnsolicitedStart: 05-21-2024 End: 59-69-6464HeboznJsdqwb J Hemeyer MD Work Phone: NOMS BNS FMComment on above:Simple chronic bronchitis (CMS/HCC)Start: 05-21-2024 End: 75-80-6241Vcbpfbu encounter Kandy Emerson MD Work Phone: [facility]-Lab [place] Work Phone: Start: 05-21-2024 End: 78-25-3357Hfccbi outpatient visit 25 minutesTeo Al MD Work Phone: [facility] CenterComment on above:Paroxysmal atrial fibrillation (Multi); High risk medication use; 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 of h[place]ai heart without angina pectoris; S/P PTCA (percutaneous transluminal coronary angioplasty); ST elevation myocardial infarction (STEMI), unspecified artery (Multi); Cardiomyopathy, ischemic; Essential hypertension; Dyslipidemia; Abdominal aortic aneurysm (AAA) greater than 5.5 cm in diameter in male (CMS-HCC); Transient cerebral ischemia, unspecified type; Stage 3a chronic kidney disease (Multi); BMI 26.0-26.9,adult; Former smokerStart: 05-21-2024 End: 16-90-9845xraeavvzasIjlbnu IbrahimFacility:[facility]stowntart: 05-13-2024 End: 35-57-3472Setogbc encounter Kandy Emerson MD Work Phone: NOMS CI FM 100Comment on above:Encounter for Medicare annual wellness exam (Primary Dx); Advance directive discussed with patient; Encounter for screening for other disorder; Screening for alcohol problem; Former smoker; OverweightStart: 05-13-2024 End: 37-74-7896yytbrctuqfWSWVDQ J HEMEYERNot AvailableStart: 05-13-2024 End: 52-30-9252Seqeam flowsEdward Emerson MD Work Phone: noMS CI FM 100Start: 05-13-2024 End: 71-21-0389Uohkxg flowsEdward Emerson MD Work Phone: NOMS CI FM 100Start: 05-10-2024 End: 08-87-0909Uphypa Reji Emerson MD Work Phone: NOMS CI FM 100Start: 05-10-2024 End: 42-35-0583Cbumwd flowsheetEdludy Emerson MD Work Phone: NOMS CI FM 100Start: 05-10-2024 End: 70-27-5287Otwgiy outpatient visit 40 minutesEdludy Emerson MD Work Phone: NOMS CI FM 100Comment on above:Essential hypertension, benign (CMS/HCC); Hypertensive nephropathy (CMS/HCC); Stage 3a chronic kidney disease (HCC) (CMS/HCC); Microalbuminuria; Panlobular emphysema (CMS/HCC); Simple chronic bronchitis (CMS/HCC); Mixed dyslipidemia (CMS/HCC); Polypharmacy; Mixed conductive and sensorineural hearing loss of both ears; Former smoker; OverweightStart: 05-10-2024 End: 94-65-4831yusvpldikeVXNOQV J HEMEYERNot AvailableStart: 05-06-2024 ambulatoryAlysha J GaleaFacility:EU BellevueStart: 05-05-2024 End: 73-15-0105htnejqjjdhLykghu Layla GaleaFacility:EU SanduskyStart: 04-28-2024 End: 81-72-7930Qpcszbqui Result EncounterGeneric External Data ProviderNOMS External Department UnsolicitedStart: 04-28-2024 End: 67-59-8567Fmuetccft Result EncounterGeneric External Data ProviderNOMS External Department UnsolicitedStart: 04-26-2024 End: 66-90-1234Hmmqakkmh Result EncounterGeneric External Data ProviderNOMS External Department UnsolicitedStart: 04-26-2024 End: 66-33-6203Xwlsvqwbm Result EncounterGeneric External Data ProviderNOMS External Department UnsolicitedStart: 04-06-2024 End: 53-38-1577oljujwymooHmsvzjv R WATERSFacility:FTMCStart: 04-06-2024 End: 82-07-5513Nie Crispin SAMUELS [facility] Start: 04-06-2024 End: 88-19-1734evfixdwqilXmyrntz R WATERSFacility:EU SanduskyStart: 04-06-2024 End: 91-45-7949Bckkrfp encounter procedurePatriczahida Isabel SAMUELS [facility] Dominic Start: 03-31-2024 End: 97-79-7033Pkcjugdmv Result EncounterGeneric External Data ProviderNOMS External Department UnsolicitedStart: 03-31-2024 End: 58-29-6418Enzsomvmr Result EncounterGeneric External Data ProviderNOMS External Department UnsolicitedStart: 03-24-2024 End: 79-33-3313Rladibvfu Result EncounterGeneric External Data ProviderNOMS External Department UnsolicitedStart: 03-24-2024 End: 32-93-2304Vfcasvgjw Result EncounterGeneric External Data ProviderNOMS External Department UnsolicitedStart: 03-23-2024 End: 25-67-1963Xipuhntsk Result EncounterGeneric External Data ProviderNOMS External Department UnsolicitedStart: 03-23-2024 End: 33-48-0164Fbqqztkcx Result EncounterGeneric External Data ProviderNOMS External Department UnsolicitedStart: 03-18-2024 End: 28-83-6323Mjbzqx flowsEdward Emerson MD Work Phone: NOMS CI FM 100Start: 03-18-2024 End: 73-99-4283Elsnun flowsEdward Emerson MD Work Phone: NOMS CI FM 100Start: 03-18-2024 End: 02-47-3087Caiquc outpatient visit 15 minutesEdludy Emerson MD Work Phone: NOMS CI FM 100Comment on above:Pneumonia of right lower lobe due to infectious organismStart: 03-18-2024 End: 63-90-5278mtunjzibstSYFVPH J HEMEYERNot AvailableStart: 03-08-2024 End: 38-27-1661Eykbmlj encounter procedureMD Stanley Eemrson Work Phone: [facility] Work Phone: Start: 03-08-2024 End: 30-97-1369geizutjwsnEE Stanley Emerson Work Phone: [facility] Work Phone: Start: 03-04-2024 End: 53-47-0610Puplznwkn Result EncounterGeneric External Data ProviderNOMS External Department UnsolicitedStart: 03-04-2024 End: 68-73-4473Wlaesmjjl Result EncounterGeneric External Data ProviderNOMS External Department UnsolicitedStart: 03-02-2024 End: 56-08-0647cjfkqvdvtbSxuaaf X OrzechFacility:EU BellevueStart: 03-02-2024 End: 99-10-7364Skgyrff encounter procedureAurora X Orzech [facility] start: 02-24-2024 End: 92-50-3485Fskjkeylbece / ancillary services managementStony Brook Eastern Long Island HospitalComment on above:Paroxysmal atrial fibrillation (Multi)Start: 02-17-2024 End: 59-90-0385imzwbrrrkwSTMBPN J HEMEYERNot AvailableStart: 02-17-2024 End: 89-34-3768Gwffex outpatient visit 15 minutesStanley Emerson MD Work Phone: [facility] 100Comment on above:Pneumonia of left lower lobe due to infectious organism (Primary Dx); Simple chronic bronchitis (CMS/HCC)Start: 02-10-2024 End: 45-33-6679Zzmhpk outpatient visit 40 minutesTeo Al MD Work Phone: [facility] CenterComment on above: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 of h[place]apai heart without angina pectoris (Pr imary Dx); Paroxysmal atrial fibrillation (Multi); High risk medication use; S/P PTCA (percutaneous transluminal coronary angioplasty); Cardiomyopathy, ischemic; ST elevation myocardial infarction (STEMI), unspecified artery (Multi); Dyslipidemia; Stage 3a chronic kidney disease (Multi); Transient cerebral ischemia, unspecified type; BMI 26.0-26.9,adult; Former smoker; QT prolongationStart: 02-04-2024 End: 88-82-5370vruovcveavOU Stanley Emerson Work Phone: [facility] Work Phone: Start: 02-04-2024 End: 61-04-3563Fmqsngw encounter procedureMD Stanley Emerson Work Phone: [facility] Nephrology Dominic Work Phone: Start: 01-29-2024 End: 78-59-3193lethadttlcABPDUF J HEMEYERNot AvailableStart: 32-70-7586Cvb- patient / Non-visitMD Stanley Emerson Work Phone: [facility] Work Phone: Start: 50-98-1103fbwqyznqdrFkeztn X OrzechFacility:EU BellevueStart: 21-67-2021Lmy-patient / Non-visitMD Stanley Emerson Work Phone: [facility] Work Phone: Start: 84-79-1188Tsc-patient / Non-visitMD Stanley Emerson Work Phone: [facility] Work Phone: Start: 01-16-2024 End: 92-58-8191Fyzmmhlrbx and management of inpatientMD Edludy Emerson Work Phone: [facility] [place] [facility] Work Phone: Start: 87-73-5858Wqg-patient / Non-visitMD Stanley Emerson Work Phone: [facility] Work Phone: Start: 01-14-2024 End: 70-09-3301Bemveiqnh to same day surgery centerMD Stanley Emerson Work Phone: [facility]-Digestive Health Work Phone: Start: 01-14-2024 End: 95-19-4355nndugetgdgTD Edludy Rich Hemechery Work Phone: [facility] Work Phone: Start: 12-26-2023 End: 13-40-0258Commtwn encounter procedureMD Stanley Emerson Work Phone: [facility]art: 12-26-2023 End: 49-91-7355uansasraplZZ Stanley Emerson Work Phone: [facility] Work Phone: Start: 12-25-2023 End: 96-32-4148ntonrvbpcgGdmyzn J GaleaFacility:EU BellevueStart: 12-25-2023 End: 65-44-1491Ecfsxln encounter procedureAlysha J Galea [facility] start: 11-19-2023 End: 64-28-9336dcqkisfsrbOCGMCK J LUISCHERYNot AvailableStart: 11-04-2023 End: 12-32-2311Niamvlz encounter procedureAurora X Elvi [facility] start: 10-22-2023 End: 66-85-0158rziccfoxxmXV Edludy J Hemechery Work Phone: [facility] Work Phone: Start: 10-22-2023 End: 09-94-6145Qardpea encounter procedureMD Stanley Emerson Work Phone: [facility] Work Phone: Start: 53-59-4310Luk-patient / Non-visitMD Edludy Hemeyer Work Phone: [facility] Work Phone: Start: 10-07-2023 End: 23-06-9068Tpfolvv encounter procedurePatrick R AdKeeper [facility] Start: 10-03-2023 End: 96-03-7800Qig Drop offPatrick R AdKeeper [facility] Start: 10-03-2023 End: 78-15-3363Hcuuicb encounter procedurePatrick R AdKeeper [facility] Start: 45-81-6761Oep-patient / Non-visitMD Edward Hemeyer Work Phone: [facility] Nephrology Work Phone: Start: 01-23-5271IhsnxqrcezzqowfGF Edward Hemeyer Work Phone: [facility]: 09-18-2023 End: 83-90-0716sxgfbcywylJD Edward J Hemeyer Work Phone: [facility] Work Phone: Start: 09-18-2023 End: 20-83-7348Rebsptk encounter procedureMD Edward Hemeyer Work Phone: [facility] Vascular Surgery Work Phone: Start: 09-11-2023 End: 81-51-0226Abuumbb encounter procedurePatrick R AdKeeper [facility] Start: 08-18-2023 End: 32-42-6753sytfptvthsZQ Stanley Emerson Work Phone: [facility] Work Phone: Start: 08-18-2023 End: 30-15-2654Sqvsfrp encounter procedureMD Stanley Emerson Work Phone: [facility]-CT Scan Main [place] Work Phone: Start: 08-15-2023 End: 84-20-4070Aeazvco encounter procedurePatamara Macias AdKeeper [facility] Start: 07-31-2023 End: 18-46-0810Abcwixjtn Result EncounterGeneric External Data ProviderNOMS External Department UnsolicitedStart: 07-31-2023 End: 38-66-2120Izypksmgs Result EncounterGeneric External Data ProviderNOMS External Department UnsolicitedStart: 06-30-2023 End: 08-08-0001Pmgbfxh encounter procedurePatamara Macias AdKeeper [facility] start: 06-16-2023 End: 65-07-2971Ebifoke encounter procedurePatamara Macias AdKeeper [facility] start: 06-10-2023 End: 18-67-6343Abohqex encounter procedurePatamara Macias AdKeeper [facility] Start: 05-06-2023 End: 29-74-2111ncczijehizUrcg Bakhous Other [facility] Acquia Other Start: 66-18-8064Mmguslatv encounterAzcelestino GriffinSofía NephrologyStart: 04-16-2023 End: 32-17-5414rwrbumixrsDlle Bakhous Other Nort Acquia Other Start: 93-77-2265Msvqihzqp encounterAzcelestino Acevedo NephrologyStart: 04-15-2023 End: 81-33-3898thdcwswfstWqgt Bakhous Other [facility] Acquia Other Start: 60-92-4393Cwmcum outpatient visit 25 minutes Aziz Kristina NephrologyStart: 04-08-2023 End: 11-43-5284aipafnlglaST Stanley Emerson Work Phone: [facility] Work Phone: Start: 04-08-2023 End: 07-58-8048Nlrnftt encounter procedureMD Stanley Emerson Work Phone: [facility]art: 03-11-2023 End: 51-20-6958Vhg Drop offPatamara Macias AdKeeper [facility] Start: 03-11-2023 End: 53-38-4600Xqwrzkw encounter procedurePatriczahida Macias SAMUELS [facility] Start: 35-98-3822Prbvbd outpatient visit 25 minutes Stanley Emerson Work Phone: [phone]-Xvfyd[address] Work Phone: Start: 65-21-6345udhqgoladlUzSigrid Al Facility:08600Wnqjt: 12-25-2022 End: 99-43-1640Vaphadn encounter procedurePatriczahida Macias SAMUELS [facility] Start: 12-10-2022 End: 89-90-2999Kpd Drop offPatamara SAMUELS [facility] Start: 12-10-2022 End: 53-72-5925Ytacckr encounter procedurePatrick Isabel SAMUELS [facility] Start: 10-04-2022 End: 00-00-7355Ujmxtff encounter procedurePatrick Isabel SAMUELS [facility] Start: 09-18-2022 End: 78-40-2848Rswkbyl encounter procedurePatriczahida SAMUELS [facility] Start: 09-15-2022 End: 71-97-2283gavqfohribZJ EDWARD HEMEYER .Facility:U9Wezib: 09-12-2022 End: 13-83-2079rwivqrcdszWB EDWARD HEMEYER .Facility:V5Isjht: 09-08-2022 Encounter for preprocedural laboratory examinationPRESTON [facility] Hospitaltart: 09-04-2022 End: 56-29-8480gfifotmzxnZR EDWARD HEMEYER .Facility:I1Nmmyq: 09-04-2022 Encounter for preprocedural cardiovascular examinationDR KATIA SAMUELS [facility] 09-02-2022 End: 07-55-6587yfuqtpmvjgJV EDWARD HEMECHERY .Facility:J9Nygmp: 09-02-2022 End: 35-17-2021Zubjlfjmy for preprocedural laboratory examinationDR EDLUDY HEMEYER .Facility:F8Cwznz: 09-02-2022 End: 41-19-7458iegtoaqqwvKH EDWARD HEMEYER .Facility:D3Pjwjh: 09-02-2022 End: 89-58-7208Izrorltct for preprocedural cardiovascular examinationDR EDWARD HEMECHERY .Facility:U6Ypswl: 08-21-2022 End: 30-64-8119fchnoddfieVuiyxd Ruttino Other [facility] [employer] Other Start: 56-23-5421Oalcrj-up encounterJackemiliana WallsoFPG Vascular SurgeryStart: 08-16-2022 End: 24-53-5174usxaqwduzuRP Stanley Emerson Work Phone: [facility] Work Phone: Start: 08-16-2022 End: 04-17-1957Bizhjpc encounter procedureMD Peteludy Singhchery Work Phone: [facility]-CT Scan Main [place] Work Phone: Start: 07-31-2022 End: 87-49-7978Tpgatbb encounter procedurePatamara SAMUELS [facility] Dominic Start: 07-25-2022 End: 26-64-5210zftkaqpxixVcpjxki Langenberg Other [facility] [employer] Other Start: 65-77-7289Wxcavh follow up visit related to original pxMatthew LangenbergFPG Vascular SurgeryStart: 07-24-2022 End: 97-09-8586brlclbxghwUE Stanley Singhchery Work Phone: [facility] Work Phone: Start: 07-24-2022 End: 61-53-2950Goerjhy encounter procedureMD Freemanludy Emerson Work Phone: [facility]-MRI Main [place] Work Phone: Start: 07-02-2022 End: 66-74-4656Vbkersslki and management of inpatientMD Stanley Emerson Work Phone: [facility] Work Phone: Start: 06-21-2022 End: 55-33-2970Lembkpu encounter procedureMD Stanley Emerson Work Phone: [facility] Efr-Pjt-Xfsgszav Testing Work Phone: Start: 06-19-2022 End: 05-66-1896yubnwhhptfSeoneke Langenberg Other [facility] [employer] Other Start: 89-38-2870Bxsrpt outpatient visit 25 minutes Margarito Jaurez Vascular SurgeryStart: 06-12-2022 End: 74-73-7696qguwghtdcwPS Stanley Emerson Work Phone: [facility] Work Phone: Start: 06-12-2022 End: 39-63-7277Rgkarce encounter procedureMD Stanley Emerson Work Phone: [facility]-CT Scan Main [place] Work Phone: Start: 06-11-2022 End: 59-86-5117Tpzfklx encounter procedureJENNJASON OMALLEY [facility] start: 06-06-2022 End: 08-09-7399nqdqjwuisvQqqnsbc Langenberg Other [facility] [employer] Other Start: 23-62-2416Bdszho outpatient visit 25 minutes Margarito Juarez Vascular SurgeryStart: 06-04-2022 End: 68-81-2164rpyqqryihdRpns Bakhous Other [facility] [employer] Other Start: 94-35-8978Aldigu outpatient visit 25 minutes Preston Acevedo Nephrology ClydeStart: 78-09-4898Fnbazi outpatient visit 25 minutesEdludy Rich Idania Work Phone: [phone]-Dlstc [facility] 250 DO Work Phone: Start: 75-09-7887lcphncvsqgDw. Stanley Emerson Facility:[id number]: 97-77-1858gsueckfevfAc. Stanley EmersonFacility:9090 Start: 14-62-5935jqgbjgktmvVd. Stanley EmersonFacility:9090Start: 29-08-3462piyvcwebvtGy. Teo AlFacility:9090Start: 05-18-20[address] Teo AlFacility:9090Start: 42-73-3650cbbiauykscTd. Stanley EmersonFacility:9090Start: 41-16-0507SpkclatlimhrzobUL Peteludy Emerson Work Phone: [facility] HospitalComment on above: Problem List clean-up per request of Phys. EHR CmteStart: 67-39-9614pwiprxfgxp Dr. Teo AlFacility:9090Start: 05-16-2022 End: 28-32-6367Qhpklavot for preprocedural cardiovascular examinationMD Stanley Emerson Work Phone: [facility]: 05-16-2022 End: 51-76-6087Yrfjtywoyd and management of inpatientMD Peteludy Emerson Work Phone: [facility] [place] [facility] Work Phone: Start: 05-16-2022 End: 46-85-4486drrkslihhkKS STANLEY EMERSON .Facility:R8Ziott: 05-15-2022 End: 83-02-9627emksupwjrsMA STANLEY EMERSON .Facility:L7Avvzc: 01-04-2022 End: 43-15-2141ytzagiterjBV STANLEY EMERSON .Facility:S6Fvnawir encounter status Stanley Emerson Work Phone: [phone]-Ivieu [facility] 250 DO Work Phone: End: 54-61-0731Brnupwo encounter statusStanley Rich Idania Work Phone: [phone]-Ihtzf [facility] 250 DO Work Phone: Procedures DateProcedureProcedure DetailPerforming ClinicianStart: 20-27-0286TDM BASIC METABOLIC PANELGeneric External Data ProviderStart: 90-94-4298GJX LIPID PROFILE (FASTING)Generic External Data ProviderStart: 06-81-7275CTI THYROID STIM HORMONE Generic External Data ProviderStart: 24-91-7779JHJ ASTGeneric External Data ProviderStart: 14-85-5624RNKN CBC WITH PLATELET NO DIFFERENTIALGeneric External Data ProviderStart: 35-83-3133NHB HEMOGLOBINGeneric External Data ProviderStart: 06-26-9509AtzixpintxQoclceg SAMUELS Start: 50-32-1679RQEP CBC WITH PLATELET NO DIFFERENTIAL Generic External Data ProviderStart: 71-31-0317MY Angiogram w/TLA/Stent Left Leg (Left)Stanley Emerson MD Work Phone: Start: 09-92-2781Ezyxe of magnesiumWaqar Pink MD Work Phone: Start: 21-46-1433HMWRY METABOLIC PANEL W/ REFLEX TO MG FOR LOW KKim Aidee Pink MD Work Phone: Start: 38-95-9790Qoj routine ecg w/least 12 lds w/i&r Waqar Pink MD Work Phone: Start: 22-04-7703Djv-scan xtr veins complete bilateral studyTalucas Plata MD Work Phone: Start: 29-95-0821Jvylb centrifuge enhncd id imfluor stain Whit Pink MD Work Phone: Start: 72-50-5108OEIKY METABOLIC PANEL W/ REFLEX TO MG FOR LOW KKim Aidee Pink MD Work Phone: Start: 47-60-4352Cquetjonhfc Saman Pink MD Work Phone: Start: 48-76-7058Ieaav of ferritinWaqar Pink MD Work Phone: [phone]: 09-21-5205DPHTS METABOLIC PANEL W/ REFLEX TO MG FOR LOW KKim Aidee Pink MD Work Phone: Start: 42-64-6542RYMCZOM B12 & FOLATEWaqar Pink MD Work Phone: Start: 10-02-2024 End: 04-45-0516Yjqbtdt bacterial quanttative colony count urineWaqar Pink MD Work Phone: Start: 76-21-4636DUDX CULT,URINEGeneric External Data ProviderStart: 64-06-0714Nrlqt s aureus methicillin resist amp probe tqWaqar Pink MD Work Phone: Start: 99-45-7925SOOTGBXSJAO PANEL, MOLECULAR, WITH COVID-19Waqar Pink MD Work Phone: Start: 89-71-8265Wmdjigjj mycoplsmWaqar Pink MD Work Phone: Start: 99-09-1223Ivfig metabolic panel calcium total Waqar Aidee Pink MD Work Phone: [phone]: 14-91-9599Deusakwasgs [Units/volume] in Serum or PlasmaRuby Montana MD Work Phone: Start: 18-37-3745OQOTZ CULTURE - FRMCGeneric External Data ProviderStart: 18-85-1456Whktz Angel Emerson MD Work Phone: Start: 60-54-1326MEHNA CULTURE - FRMCGeneric External Data ProviderStart: 62-55-6800Hmrlr Ezequiel Bo MD Work Phone: Start: 18-75-0558Bwjto dip stick/tablet rgnt non-auto w/o micrscpEdludy Emerson MD Work Phone: Start: 93-80-3459Ygm routine ecg w/least 12 lds w/i&r Teo Al MD Work Phone: Start: 89-53-9430FYH LIPID PROFILE (FASTING)Generic External Data ProviderStart: 13-79-9425GGZ THYROID STIM HORMONEGeneric External Data ProviderStart: 78-01-1323RHRNybekay External Data ProviderStart: 07-29-2024 Ecg routine ecg w/least 12 lds w/i&Jackelin Al MD Work Phone: Start: 24-17-7953WOSRwadtrm External Data Provider Start: 36-03-2167YVR THYROID STIM HORMONEGeneric External Data ProviderStart: 25-83-0121SLEBFE PROTHROMBIN TIME INR W/O Garry Sequeira MD Work Phone: Start: 80-55-7200DIMMqyvyur External Data Provider Start: 94-40-1061HGYHaqmzii External Data ProviderStart: 00-86-3212Uqm routine ecg w/least 12 lds w/i&Jackelin Al MD Work Phone: Start: 13-29-2678KHXQG CULTURE 2Generic External Data ProviderStart: 95-23-5212ONCBB CULTURE 1Generic External Data ProviderStart: 27-91-8400ZEIGxlglls External Data ProviderStart: 76-80-0983Rehrzfdg cystoscopy Katia SAMUELS Start: 34-46-0556QDYWeftyzp External Data Provider Start: 51-83-4284PUTKkybuyo External Data ProviderStart: 47-62-0062NE PULMONARY FUNCTION TESTGeneric External Data ProviderStart: 93-84-1862XTD HEMOGLOBIN Generic External Data ProviderStart: 27-08-8764Cdtqw Strep (POC)MD Stanley Emerson Work Phone: Start: 58-32-1577Pnvoj chest X-rayMD Stanley Emerson Work Phone: Start: 79-56-0442OAG HEMOGLOBINGeneric External Data ProviderStart: 97-46-0276Vmk routine ecg w/least 12 lds w/i&Jackelin Al MD Work Phone: start: 61-70-8463Vppgkbgp identified in Urine by CultureMD Stanley Emerson Work Phone: Start: 72-12-6059Aiqkk cultureMD Stanley Emerson Work Phone: Start: 35-36-7531Qexuuvpp identified in Urine by CultureMD Stanley Emerson Work Phone: Start: 99-20-5032Gumws cultureMD Stanley Emerson Work Phone: Start: 16-22-4186Ttxqg chest X-rayMD Stanley Emerson Work Phone: Start: 14-88-6218BR Iliac/Fem w/LHCMD Stanley Emerson Work Phone: Start: 88-88-5690HX LHC & COR AngioMD Stanley Emerson Work Phone: Start: 42-53-4932WI PCI AMI 1st Vessel LAD DESMD Stanley Emerson Work Phone: Start: 32-15-2634ZkytkmzlvlsKH Stanley Emerson Work Phone: Start: 67-13-1227Rscptfic cystoscopyPatamara SAMUELS Start: 21-20-4348LB of abdomen and pelvis without contrastMD Stanley Emerson Work Phone: Start: 23-52-0716Ouk-scan xtr veins unilateral/limited studyGeneric External Data ProviderStart: 92-07-0805Yxrbvnorov, device (physical object)Katia SAMUELS Start: 61-44-8569Tqntquegocqdp resection of bladder neoplasmChintanzahida SAMUELS Start: 46-86-9362Yjrgqpuc tomography angiography of abdominal and/or pelvic blood vesselMD Stanley Emerson Work Phone: Start: 28-16-6324TukuzgfynyXdujdvy SAMUELS Start: 90-46-3652Tsjnxinyfzsh repair of abdominal aortic aneurysmMD Stanley Emerson Work Phone: Start: 64-09-7310Iomfnrpj tomography angiography of abdominal and/or pelvic blood vesselMD Stanley Emerson Work Phone: Start: 47-79-2716Somilbqdnygi myocardial perfusion stress studyMD Stanley Dealupachery Work Phone: Start: 45-68-9222Dvh and Parasite Result 1MD Stanley Emerson Work Phone: Start: 30-46-8280Juh OR parasites identificationMD Stanley [employer] Work Phone: Start: 46-11-9912Dqhzz cultureMD Stanley [employer] Work Phone: Cataract surgeryEdludy Rich [employer] Work Phone: Insertion of stent in inferior vena cavaEdludy Rich [employer] Work Phone: Operation on bladderEdludy Rich [employer] Work Phone: Urinary catheter placementEdludy Rich [employer] Work Phone: NEGATED: Highlighted row has not occurred!Colonoscopy Stanley Rich [employer] Work Phone: Plan of Treatment DateCare ActivityDetailAuthorStart: 23-41-2713Vcloyin stimulating hormone measurementTS LevelUnThe [facility]: 08-06-2025 EchocardiographyEchocardiogramCleveland Clinic [facility]: 05-13-2025 Medicare Annual Wellness (AWV)Medicare Annual Wellness (AWV)[facility] Healthcare Start: 05-10-2025 End: 39-78-1833Ozzrhhc encounter zakyvosyj11/16/2025 2:00 PM EST Office Visit [facility] [place] [address] [place] [address] [facility] [address] [place] [address] Stanley Emerson MD [address] [facility] 100 [place] [address] (Fax)[facility]OMEn[facility] HealthTom[address] MedicineStart: 03-29-2025 End: 99-77-6032Kvjmovs encounter hltxpsoah96/04/2025 11:00 AM EST Office Visit [facility] [address] [place] [address] Teo Al MD [address] [place] [address] [facility]: 03-21-2025 End: 36-91-4389Oktorzej Pulmonary Function Test (Spirometry/DLCO/Lung Volumes) Complete Pulmonary Function Test (Spirometry/DLCO/Lung Volumes) PFT Routine Paroxysmal atrial fibrillation (Multi) High risk medication use Expected: 03/21/2025 (Approximate), Expires: 05/21/2025[facility] Work Phone: Comment on above:Expected: 03/21/2025 (Approximate), Expires: 05/21/2025Start: 03-21-2025 End: 21-08-3099LZ Chest 2 ViewsXR chest 2 views Imaging Routine Paroxysmal atrial fibrillation (Multi) High risk medication use Expected: 03/21/2025, Expires: 05/21/2025[facility] Work Phone: Comment on above:Expected: 03/21/2025, Expires: 05/21/2025Start: 03-12-2025 End: 97-79-1976Ewccbbyp Pulmonary Function Test (Spirometry/DLCO/Lung Volumes) Complete Pulmonary Function Test (Spirometry/DLCO/Lung Volumes) PFT Routine Paroxysmal atrial fibrillation (Multi) High risk medication use Expected: 03/12/2025 (Approximate), Expires: 09/10/2025[facility] Service Area Work Phone: Comment on above:Expected: 03/12/2025 (Approximate), Expires: 09/10/2025Start: 01-29-2025 End: 18-51-3847Hjthwydgn aminotransferase [Enzymatic activity/volume] in Serum or Plasma by With P-5'-PAspartate Aminotransferase Lab Routine Paroxysmal atrial fibrillation (Multi) High risk medication use Expected: 01/29/2025, Expires: 07/29/2025[facility] Service Area Work Phone: Comment on above:Expected: 01/29/2025, Expires: 07/29/2025Start: 01-29-2025 End: 80-44-9143Hgdmp metabolic 2000 panel - Serum or PlasmaBasic Metabolic Panel Lab Routine Paroxysmal atrial fibrillation (Multi) High risk medication use Ex pected: 01/29/2025, Expires: 07/29/2025[facility] Work Phone: Comment on above:Expected: 01/29/2025, Expires: 07/29/2025Start: 01-29-2025 End: 10-73-3453Bvfychgb Pulmonary Function Test (Spirometry/DLCO/Lung Volumes) Complete Pulmonary Function Test (Spirometry/DLCO/Lung Volumes) PFT Routine Paroxysmal atrial fibrillation (Multi) High risk medication use Expected: 01/29/2025 (Approximate), Expires: 07/29/2025[facility] Work Phone: Comment on above:Expected: 01/29/2025 (Approximate), Expires: 07/29/2025Start: 01-29-2025 End: 78-62-7518Pxgxv 1996 panel - Serum or PlasmaLipid Panel Lab Routine Dyslipidemia Expected: 01/29/2025 (Approximate), Expires: 07/29/2025[facility] Work Phone: Comment on above:Expected: 01/29/2025 (Approximate), Expires: 07/29/2025Start: 01-29-2025 End: 17-73-6460Uidkrhlmnds [Units/volume] in Serum or PlasmaThyroid Stimulating Hormone Lab Routine Paroxysmal atrial fibrillation (Multi) High risk medication use Expected: 01/29/2025, Expires: 07/29/2025[facility] Work Phone: Comment on above:Expected: 01/29/2025, Expires: 07/29/2025Start: 01-29-2025 End: 13-46-7219PQ Chest 2 ViewsXR chest 2 views Imaging Routine Paroxysmal atrial fibrillation (Multi) High risk medication use Expected: 01/29/2025 (Approximate), Expires: 07/29/2025[facility] Work Phone: Comment on above:Expected: 01/29/2025 (Approximate), Expires: 07/29/2025Start: 55-22-5486QLQOK-19 Vaccine ()COVID- 19 Vaccine ()[facility] HealthcareStart: 99-80-3997Djmhofysj vaccinationInfluenza Vaccine (#1)[facility] HealthcareStart: 01-15-2025 EchocardiographyEchocardiogramUnAdena Fayette Medical CenterStart: 11-19-2024 End: 95-99-5886Xbmjqlu aminotransferase [Enzymatic activity/volume] in Serum or Plasma by With P-5'-PAlanine Aminotransferase Lab Routine Paroxysmal atrial fibrillation (Multi) High risk medication use Expected: 11/19/2024 (Approximate), Expires: 05/21/2025[facility] Work Phone: Comment on above:Expected: 11/19/2024 (Approximate), Expires: 05/21/2025Start: 11-19-2024 End: 57-09-5010Mgjryfoac aminotransferase [Enzymatic activity/volume] in Serum or Plasma by With P-5'-PAspartate Aminotransferase Lab Routine Paroxysmal atrial fibrillation (Multi) High risk medication use Expected: 11/19/2024 (Approximate), Expires: 05/21/2025[facility] Work Phone: Comment on above:Expected: 11/19/2024 (Approximate), Expires: 05/21/2025Start: 11-19-2024 End: 97-14-2848Oaxpl metabolic 2000 panel - Serum or PlasmaBasic Metabolic Panel Lab Routine Paroxysmal atrial fibrillation (Multi) High risk medication use Ex pected: 11/19/2024 (Approximate), Expires: 05/21/2025[facility] Work Phone: Comment on above:Expected: 11/19/2024 (Approximate), Expires: 05/21/2025Start: 11-19-2024 End: 41-04-9121WNW panel - Blood by Automated countCBC Lab Routine Paroxysmal atrial fibrillation (Multi) High risk medication use Expected: 11/19/2024 (Approximate), Expires: 05/21/2025[facility] Work Phone: Comment on above:Expected: 11/19/2024 (Approximate), Expires: 05/21/2025Start: 11-19-2024 End: 57-84-3926Ggkvm 1996 panel - Serum or PlasmaLipid Panel Lab Routine Dyslipidemia Expected: 11/19/2024 (Approximate), Expires: 05/21/2025[facility] Work Phone: Comment on above:Expected: 11/19/2024 (Approximate), Expires: 05/21/2025Start: 11-19-2024 End: 86-09-9753Xzuafozyhdh [Units/volume] in Serum or PlasmaThyroid Stimulating Hormone Lab Routine Paroxysmal atrial fibrillation (Multi) High risk medication use Expected: 11/19/2024 (Approximate), Expires: 05/21/2025[facility] Work Phone: Comment on above:Expected: 11/19/2024 (Approximate), Expires: 05/21/2025Start: 11-09-2024 End: 26-59-1160Ydrmwyf encounter procedureNOMS CI FM 100Comment on above:Arrived Start: 10-14-2024 End: 73-83-4026Kumdovt encounter yzvauvmam62/22/2025 2:30 PM EDT Office Visit [facility] [address] [place] [address] Stanley Emerson MD [address] [place] [address] (Fax)[facility] CI FM 100Start: 66-68-2221GthlxmthiSelect Medical Specialty Hospital - Youngstowntart: 10-08-2024 End: 62-72-4203Hlzwg metabolic 2000 panel - Serum or PlasmaBasic Metabolic Panel Lab Routine Pre-operative cardiovascular examination Expected: 10/08/2024 (Celine roximate), Expires: 10/08/2025[facility] Work Phone: Comment on above:Expected: 10/08/2024 (Approximate), Expires: 10/08/2025Start: 10-08-2024 End: 08-83-5279DCQ panel - Blood by Automated countCBC Lab Routine Pre-operative cardiovascular examination Expected: 10/08/2024 (Approximate), Expires: 10/08/2025[facility] Work Phone: Comment on above:Expected: 10/08/2024 (Approximate), Expires: 10/08/2025Start: 10-08-2024 End: 52-49-1721KR and aPTT panel - Platelet poor plasma by Coagulation assay Coagulation Screen Lab Routine Pre-operative cardiovascular examination Bradyarrhythmia on pre-operative cardiovascular examination Pre-operative cardiovascular examination, supraventricular arrhythmia Expected: 10/08/2024 (Approximate), Expires: 10/08/2025[facility] Service Area Work Phone: Comment on above:Expected: 10/08/2024 (Approximate), Expires: 10/08/2025Start: 32-64-3031Fuohmv Wellness Visit (Medicare)Annual Wellness Visit (Medicare)[facility] CenterStart: 94-89-6408Tnfhr culture [facility]tart: 84-80-2757Mcdumazz identified in Urine by CultureUrine [facility] Centertart: 62-84-1607Cvhaz cultureGrand Lake Joint Township District Memorial Hospital CenterStart: 94-03-4059Rusmvgba identified in Urine by CultureUrine [facility] CenterStart: 09-23-2024 US Lower extremity artery - bilateralSelect Medical Specialty Hospital - Youngstowntart: 09-21-2024 End: 38-13-0421Nnsxeol encounter vybipsnkr48/29/2025 2:15 PM EDT Office Visit [facility] [address] [place] [address] Stanley Emerson MD [address] [place] [address] 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 [...] urinary catheter present; Former smoker; Polypharmacy; OverweightStart: 07-70-1957LLWPN-19 Vaccine ()COVID-19 Vaccine ()[facility]: 55-41-8529OHIIV-19 Vaccine ()COVID-19 Vaccine ()[facility] CenterStart: 09-10-2024 End: 35-39-8860Tuwbrdhed aminotransferase [Enzymatic activity/volume] in Serum or Plasma by With P-5'-PAspartate Aminotransferase Lab Routine Dyslipidemia Expected: 09/10/2024 (Approximate), Expires: 09/10/2025[facility] Work Phone: Comment on above:Expected: 09/10/2024 (Approximate), Expires: 09/10/2025Start: 09-10-2024 End: 80-90-3645Zigsk metabolic 2000 panel - Serum or PlasmaBasic Metabolic Panel Lab Routine Cardiomyopathy, ischemic 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 of [place] heart without angina pectoris Expected: 09/10/2024 (Approximate), Expires: 09/10/2025[facility] Work Phone: Comment on above:Expected: 09/10/2024 (Approximate), Expires: 09/10/2025Start: 09-10-2024 End: 13-93-9434Hnbzmrzshfc [Units/volume] in Serum or PlasmaThyroid Stimulating Hormone Lab Routine Dyslipidemia Expected: 09/10/2024 (Approximate), Expires: [facility] Work Phone: Comment on above:Expected: 09/10/2024 (Approximate), Expires: 09/10/2025Start: 09-09-2024 End: 39-62-9974Umooatfnivz [Units/volume] in Serum or PlasmaThyroid Stimulating Hormone Lab Routine Paroxysmal atrial fibrillation (Multi) High risk medication use Expected: 09/09/2024 (Approximate), Expires: 07/29/2025[facility] Work Phone: Comment on above:Expected: 09/09/2024 (Approximate), Expires: 07/29/2025Start: 07-29-2024 End: 16-90-4348Bouorja encounter wtpixvrxa43/06/2025 11:00 AM EST Office Visit [facility] [address] [facility] [address] [place] [address] Teo Al MD [address] [facility] [address] [place] [address] [facility]: 05-21-2024 End: 65-83-7709Srnqrro aminotransferase [Enzymatic activity/volume] in Serum or Plasma by With P-5'-PAlanine Aminotransferase Lab Routine Paroxysmal atrial fibrillation (Multi) High risk medication use Expected: 05/21/2024 (Approximate), Expires: 05/21/2025[facility] Work Phone: Comment on above:Expected: 05/21/2024 (Approximate), Expires: 05/21/2025Start: 05-21-2024 End: 88-35-0937Mijhppdog aminotransferase [Enzymatic activity/volume] in Serum or Plasma by With P-5'-PAspartate Aminotransferase Lab Routine Paroxysmal atrial fibrillation (Multi) High risk medication use Expected: 05/21/2024 (Approximate), Expires: 05/21/2025[facility] Service Area Work Phone: Comment on above:Expected: 05/21/2024 (Approximate), Expires: 05/21/2025Start: 05-21-2024 End: 63-73-4133Whpnw metabolic 2000 panel - Serum or PlasmaBasic Metabolic Panel Lab Routine Paroxysmal atrial fibrillation (Multi) High risk medication use Ex pected: 05/21/2024 (Approximate), Expires: 05/21/2025[facility] Work Phone: Comment on above:Expected: 05/21/2024 (Approximate), Expires: 05/21/2025Start: 05-21-2024 End: 94-26-5105Qctsurtveqm [Units/volume] in Serum or PlasmaThyroid Stimulating Hormone Lab Routine Paroxysmal atrial fibrillation (Multi) High risk medication use Expected: 05/21/2024 (Approximate), Expires: 05/21/2025[facility] Work Phone: Comment on above:Expected: 05/21/2024 (Approximate), Expires: 05/21/2025Start: 05-13-2024 End: 26-70-5119Ejkouvs encounter procedureNOMS CI FM 100Comment on above: Encounter for Medicare annual wellness exam; Advance directive discussed with patient; Encounter for screening for other disorder; Screening for alcohol problem; Former smoker; PolypharmacyStart: 05-10-2024 End: 39-48-6108Zxezllx encounter qpdyfnwio41/16/2024 11:00 AM EST Office Visit [facility] [address] [facility] [address] [place] [address] Stanley Emerson MD [address] [facility] [address] [place] [address] Essential hypertension, benign (CMS/HCC); Hypertensive nephropathy (CMS/HCC); [...] both ears; Former smoker; OverweightStart: 05-06-2024 End: 67-86-5619Fazzzig encounter procedureNOMS CI FM 100Start: 04-12-2024 End: 20-47-8588Fdyihqy encounter iewtanxkf11/18/2024 3:20 PM EST Office Visit [facility] [address] [facility] [address] [place] [address] Teo Al MD [address] [facility] [place] [address] [facility]: 03-18-2024 End: 14-86-5164Fmptikb encounter yfutwparo68/24/2024 11:30 AM EDT Office Visit [facility] [address] [place] [address] Stanley Emerson MD [address] [facility] [place] [address] (Fax) Pneumonia of right lower lobe due to infectious organismNOMS CI FM 100Comment on above:Pneumonia of right lower lobe due to infectious organismStart: 03-11-2024 End: 46-12-3911Atlgniua Pulmonary Function Test (Spirometry/DLCO/Lung Volumes) Complete Pulmonary Function Test (Spirometry/DLCO/Lung Volumes) PFT Routine Paroxysmal atrial fibrillation (Multi) High risk medication use Expected: 03/11/2024 (Approximate), Expires: 02/09/2025[facility] Work Phone: Comment on above:Expected: 03/11/2024 (Approximate), Expires: 02/09/2025Start: 03-11-2024 End: 77-34-7130UU Chest 2 ViewsXR chest 2 views Imaging Routine Paroxysmal atrial fibrillation (Multi) High risk medication use Expected: 03/11/2024, Expires: 02/09/2025[facility] Work Phone: Comment on above:Expected: 03/11/2024, Expires: 02/09/2025Start: 87-97-8234Ffwqc chest X-rayXR chest 2V*[facility]: 02-18-2024 End: 78-38-4703Zzkvidwcbtne / ancillary services /25/2024 1:00 PM EDT Ancillary Procedure [facility] [address] [phone] uh [facility]Start: 02-17-2024 End: 82-52-2855EDD 12 LeadECG 12 Lead ECG Routine Paroxysmal atrial fibrillation (Multi) Expected: 02/17/2024 (Approximate), Expires: 02/09/2025[facility] Work Phone: Comment on above:Expected: 02/17/2024 (Approximate), Expires: 02/09/2025Start: 02-10-2024 End: 66-94-8886Gsopwsocg aminotransferase [Enzymatic activity/volume] in Serum or Plasma by With P-5'-PAspartate Aminotransferase Lab Routine Paroxysmal atrial fibrillation (Multi) High risk medication use Expected: 02/10/2024 (Approximate), Expires: 02/09/2025[facility] Work Phone: Comment on above:Expected: 02/10/2024 (Approximate), Expires: 02/09/2025Start: 02-10-2024 End: 10-45-0845Ocqjv metabolic 2000 panel - Serum or PlasmaBasic Metabolic Panel Lab Routine Paroxysmal atrial fibrillation (Multi) High risk medication use Ex pected: 02/10/2024 (Approximate), Expires: 02/09/2025[facility] Work Phone: Comment on above:Expected: 02/10/2024 (Approximate), Expires: 02/09/2025Start: 02-10-2024 End: 30-68-0114Qyekxclapbw [Units/volume] in Serum or PlasmaThyroid Stimulating Hormone Lab Routine Paroxysmal atrial fibrillation (Multi) High risk medication use Expected: 02/10/2024 (Approximate), Expires: 02/09/2025[facility] Work Phone: Comment on above:Expected: 02/10/2024 (Approximate), Expires: 02/09/2025Start: 15-44-4148GPQWR-19 Vaccine ( season)COVID- 19 Vaccine ( season)[facility] HospitalStdublin: 29-20-8484Mecoaysxj vaccinationInfluenza Vaccine (#1)[facility]: 86-68-5063FwxtechidSelect Medical Specialty Hospital - Youngstowntart: 01-23-2024 Bacteria identified in Urine by CultureSelect Medical Specialty Hospital - Youngstowntart: 80-67-0453Tutjdmbj to clinical allergistSelect Medical Specialty Hospital - Youngstowntart: 19-96-1068Ntkudzpz to rehabilitation physicianSalem City Hospital Start: 93-93-6440XFA, Provider: Teo Al, Status: Pen, Time: 11:50 AMFUV, Provider: Teo Al, Status: Pen, Time: 11:50 AMMP-[facility] [place] [address] DO Work Phone: Start: 36-86-2818Rcmexwke of Coronary Artery, One Artery with Drug-eluting Intraluminal Device, Percutaneous ApproachDilation of Coronary Artery, One Artery with Drug-eluting Intraluminal Device, Percutaneous ApproachSelect Medical Specialty Hospital - Youngstowntart: 78-00-9903Ypeefqyijdm of Left Heart using Low Osmolar ContrastFluoroscopy of Left Heart using Low Osmolar ContrastSelect Medical Specialty Hospital - Youngstowntart: 65-41-5622Xnpgvpyutbm of Multiple Coronary Arteries using Low Osmolar ContrastFluoroscopy of Multiple Coronary Arteries using Low Osmolar ContrastSalem City Hospital Start: 59-08-3091Cysjrxksibz of Cardiac Sampling and Pressure, Left Heart, Percutaneous ApproachMeasurement of Cardiac Sampling and Pressure, Left Heart, Percutaneous ApproachSelect Medical Specialty Hospital - Youngstowntart: 75-37-5007Tngzcmib admissionSelect Medical Specialty Hospital - Youngstowntart: 34-19-5758Dllpemao to cardiac rehabilitation programSelect Medical Specialty Hospital - Youngstowntart: 01-16-2024 [facility]: 21-61-3918WfameaxmwSelect Medical Specialty Hospital - Youngstowntart: 34-98-6747Xznbbyar identified in Urine by CultureSelect Medical Specialty Hospital - Youngstowntart: 54-53-1426IVR, Provider: Teo Al, Status: Pen, Time: 10:10 AMFUV, Provider: Teo Al, Status: Pen, Time: 10:10 AM-[facility] 250 DO Work Phone: Start: 86-42-4866KQ Abdomen WO and W contrast IV [facility]: 70-57-1403XKC of abdomen with contrastMR abdomen wo/w [facility]: 87-79-1951UmfbikgdzSelect Medical Specialty Hospital - Youngstowntart: 49-74-6785Aityyjsklyx of Aorta and Bilateral Lower Extremity Arteries using Low Osmolar ContrastFluoroscopy of Aorta and Bilateral Lower Extremity Arteries using Low Osmolar ContrastSelect Medical Specialty Hospital - Youngstowntart: 26-69-7062Vhvprpxbicz of Abdominal Aorta with Intraluminal Device, Percutaneous ApproachRestriction of Abdominal Aorta with Intraluminal Device, Percutaneous ApproachSelect Medical Specialty Hospital - Youngstowntart: 80-73-7398PusxbyfmfSelect Medical Specialty Hospital - Youngstowntart: 10-08-1840Wrquchptli procedureSelect Medical Specialty Hospital - Youngstowntart: 96-13-7690NsuogcylvSelect Medical Specialty Hospital - Youngstowntart: 05-17-2022 End: 92-32-8839GbnyhmwikSelect Medical Specialty Hospital - Youngstowntart: 30-38-2329Qvvzukpm to nephrologistSelect Medical Specialty Hospital - Youngstowntart: 78-34-5245Mvxjewue to vascular surgeonSelect Medical Specialty Hospital - Youngstowntart: 74-63-6841Qpbjzblw admissionSelect Medical Specialty Hospital - Youngstowntart: 90-57-3692OQF High Risk: (Elderly (60+) or Population) (1 - 1-dose 75+ series)RSV High Risk: (Elderly (60+) or Population) (1 - 1-dose 75+ series)[facility]: 73-91-8285NMP patients and/or patients aged 60+ years (1 - 1-dose 60+ series)RSV patients and/or patients aged 60+ years (1 - 1-dose 60+ series)[facility]: 89-99-4822Zbqpcxtb vaccine (1 of 2)Shingles vaccine (1 of 2)[facility]: 76-95-8008Uzmbvu Vaccines (1 of 2)Zoster Vaccines (1 of 2) [facility]: 59-04-9975MTzD/Tdap/Td Vaccines (1 - Tdap)DTaP/Tdap/Td Vaccines (1 - Tdap)[facility]: 72-02-6054LSsF/Tdap/Td vaccine (1 - Tdap)DTaP/Tdap/Td vaccine (1 - Tdap)[facility]: 85-62-6599Urtww screening for proteinCKD: Urine Protein ScreeningC[facility]: 95-82-3575Oogkmlfp mellitus screeningDiabetes ScreeningCleveland Clinic [facility]inte [facility]: 50-17-0737Jwvpzmixyn ScreenDepression ScreenRiverside Doctors' [facility] [place]: 52-85-0671Lxwky panelLipidsRiverside Doctors' Hospital [place]: 62-52-0004MDsD/Tdap/Td Vaccines (1 - Tdap)DTaP/Tdap/Td Vaccines (1 - Tdap)[facility]: 93-48-7540Vpjarnqxul measurementCreatinine [facility]: 85-78-5232Tbizu panelLipid PanelC[facility] Clinic [facility]inte [facility]: 07-08-1944Medicare Annual Wellness VisitMedicare Annual Wellness Visit (AWV)[facility]: 54-95-4576Ysccxkbrf measurementPotassium [facility] HospitalUnThe [facility]: 1945 Thyroid stimulating hormone measurementTSWeatherford Regional [facility] – [place] End: 51-64-8532Souqm Metabolic Panel w/ Reflex to MGBasic Metabolic Panel w/ Reflex to MG Lab Routine Tomorrow AM for 5 Occurrences starting 10/03/2024until 10/07/2024, 3 completedWellmont [facility]onesome Pine [facility] View Hospitalment on above:Tomorrow AM for 5 Occurrences starting 10/03/2024 until 10/07/2024, 3 completedBLOOD CULTURE 1 BLOOD CULTURE 1 Lab Routine 04/28/2024 8:34 AM ESTNOMS HealthcareBLOOD CULTURE 2 BLOOD CULTURE 2 Lab Routine 04/28/2024 8:40 AM [facility] End: 54-87-2722BRL W Auto Differential panel - BloodCBC with Auto Differential Lab Routine Tomorrow AM for 5 Occurrences starting 10/03/2024 until 10/07/2024, 3 [facility] on above:Tomorrow AM for 5 Occurrences starting 10/03/2024 until 10/07/2024, 3 completedCulture, Urine Culture, Urine Microbiology [employer] Label Print 10/02/2024 3:43 [facility] ShibumiECG 12 LeadECG 12 Lead ECG Routine Paroxysmal atrial fibrillation (Multi) 02/24/2024 2:45 PM [facility] Service Area Work Phone: Insd implntbl defib pulse gen w/1 existing ldICD SUBQ IMPLANT Cardiomyopathy, ischemic Ventricular ectopy/arrhythmia, pre-operative cardiovascular examVirtual GARY Cardiac Cath LabOxygen therapy [Minimum Data Set] Initiate Oxygen Therapy Protocol Respiratory Care Routine As Needed until discontinued starting 10/02/2024 [facility] on above:As Needed until discontinued starting 10/02/2024Patient EducationGrand Lake Joint Township District [facility]tr Work Phone: Patient referralGrand Lake Joint Township District [facility] Work Phone: End: 34-03-4623Hcnyqif-INRProtime-INR Lab Routine Daily for 3 Weeks starting 10/03/2024 until 10/23/2024, 3 [facility] on above:Daily for 3 Weeks starting 10/03/2024 until 10/23/2024, 3 completedRenal function 1999 panel - Serum or [facility] HospitalRen[facility] function 1999 panel - Serum or [facility] CenterRen[facility] function 1999 panel - Serum or [facility] HospitalRenal function 1999 panel - Serum or [facility] HospitalRenal function 1999 panel - Serum or [facility] Hospitalpirometry panelIncentive spirometry Respiratory Care Routine Every 2hr while awake until discontinued starting 10/02/2024 [facility] on above:Every 2hr while awake until discontinued starting 10/02/2024URINE CULTURE - [facility] Lab Routine 09/28/2024 6:08 PM [facility] Lab Routine 10/01/2024 3:40 PM [facility] End: 39-20-0174GO [facility]ansthoracicLOVELACE [facility] Service Area Work Phone: Comment on above:Once for 1 Occurrences starting 08/06/2024 until 08/06/2024US Thoracic and abdominal aortaSalem City HospitalXR Chest 2 ViewsMoundview Memorial Hospital and Clinics Immunizations Immunization DateImmunizationNotesCare MfeoexwxOalautfn06-76-0041QKZ, recombinant, protein subunit RSVpreF, adjuvant reconstitu, 120mcg/0.5mL, PF (Arexvy)Stanley Emerson MD Work Phone: [facility] HospitalEuxretfqmj01-31-8546kkgkrivwn virus vaccine, unspecified formulationPaBoston Sanatorium [facility] Hospitaly10-25-2024influenza, seasonal, injectableGeneric ProviderHermann Area District Hospital 43-09-7269Aaolam Purple Cap SARS-CoV-2 VaccinationGeneric ProviderHermann Area District HospitalEzfbfhxemh84-50-9411Kjllqzpeqcxe Conjugate PCV 20Edludy Emerson MD Work Phone: [facility] HospitalGzjbbkpolc99-15-5290Bedafnjac, Seasonal, Quadrivalent, AdjuvantedTeo Al MD Work Phone: [facility] Work Phone: [phone]xc virus vaccine, unspecified formulationTeo Al MD Work Phone: [facility] Hospitaly09-24-2023SARS-COV-2 (COVID-19) vaccine, mRNA, spike protein, LNP, PF, valente-sucrose, 30 mcg/0.3 mLStanley Emerson MD Work Phone: [facility] HospitalKlzngqmnkj45-34-8901glpbmhaeq, high dose seasonal, preservative-freeTeo Al MD Work Phone: [facility] Work Phone: [phone] Bivalent Booster VaccinationStanley Emerson MD Work Phone: [facility] HospitalNlcwsykmyu09-89-2055Wdfpng COVID-19 Vac Bivalent 30 MCG/0.3ML Intramuscular SuspensionEdludy Emerson Work Phone: [facility]10-22-2022influenza virus vaccine, unspecified formulationPaBoston Sanatorium [facility] [place] 332880-22-2022influenza, seasonal, injectableEdludy Emerson Work Phone: [phone]-VdnveChristine Ville [address] DO Work Phone: [phone] High-Dose Quadrivalent 0.7 ML Intramuscular Suspension Prefilled SyringeEdludy Layla Emerson Work Phone: [phone]-ZyzwwChristine Ville [address] DO Work Phone: [phone]b virus vaccine, unspecified formulationJEEASTERN NEW MEXICO MEDICAL CENTER [facility]05-11-2022Comirnaty 30 MCG/0.3ML Intramuscular SuspensionEdludy Layla Emerson Work Phone: [phone]-NozvrFairmont Hospital and Clinic 250 DO Work Phone: [phone]-82 Cristal Mckeon (Pfizer)MD Stanley Emerson Work Phone: [facility]05-11-2022SARS-CoV-2 mRNA (vkrpksgctpn-alqx-aglsuew) vaccineJEEASTERN NEW MEXICO MEDICAL CENTER [facility]05-11-2022SARS-CoV-2, UnspecifiedStanley Emerson MD Work Phone: [facility] HospitalXuqmhplkkq43-88-0683wvlbiptmtjzq polysaccharide vaccine, 23 valentEdludy Emerson Work Phone: [facility]09-30-2021influenza virus vaccine, unspecified formulationPaBoston Sanatorium [facility]09-30-2021influenza, injectable, quadrivalent, preservative freeEdludy Emerson Work Phone: [phone]-QnebkFairmont Hospital and Clinic 250 DO Work Phone: [phone]-OrcJSgja COVID-19 Vacc 30 MCG/0.3ML Intramuscular SuspensionStanley Emerson Work Phone: [facility] HospitalComment on above:Result Comment: 2022-06-10: RUH1324-21-7289buunhhthn, high dose seasonal, preservative-freeTeo Al MD Work Phone: [facility] Work Phone: [phone]-CecOWdrr COVID-19 Vacc 30 MCG/0.3ML Intramuscular SuspensionStanley Emerson Work Phone: [facility]02-12-2021Pfizer-BioNTech COVID-19 Vacc 30 MCG/0.3ML Intramuscular SuspensionStanley Emerson Work Phone: [facility]09-29-2020influenza virus vaccine, unspecified formulationHEATHER OMALLEY [facility]09-29-2020influenza, injectable, quadrivalent, preservative freeEdludy Emerson MD Work Phone: [facility] HospitalLnwnlzkjub29-62-5472Psjslytq, quadrivalent, recombinant, injectable influenza vaccine, preservative freeStanley Emerson Work Phone: [phone]-Dboar [facility] Mosher DO Work Phone: Payers DatePayer CategoryPayerPolicy ID2024Self-[id number] 2016Medicare supplemental policy (as second payer)HU[employer]NA MEDICARE SUPPLEMENT [id number] Health [id number] 2011Medicare [id number] [id number] Health [id number] 2.840.1.617881.3.579.2.54237-90-3633Wzqknof5963566 2.840.1.911165.3.579.2.54597-63-3737Kzqlnqq4603665 2.840.1.607013.3.579.2.97873-76-2695Pdfscxe3178430 2.16.840.1.934122.3.579.2.61791-66-4222Hbjvzoi8812029 2.16.840.1.089462.3.579.2.49891-33-5959Ezaquhi1202782 2.16.840.1.599223.3.579.2.41811-67-2974Maqqngd0767876 2.16.840.1.592393.3.579.2.81707-72-8654Pcvnwrz0471415 2.16840.1.001293.3.579.2.08665-39-8539Hfuwexo167686433 2.16840.1.475111.3.579.2.58068-85-6146Ecjhxsa108096538 2.840.1.261344.3.579.2.18673-08-5771Ywoleue660015038 2.16840.1.942964.3.579.2.38463-31-3376Fvyvcwu351655850 2.16840.1.298330.3.579.2.18144-93-5985Qjmlqhn314059417 2.16840.1.019986.3.579.2.09273-33-6858Tvxecwc879031894 2.840.1.532411.3.579.2.39461-99-7832Ifuwhje537923706 2.16840.1.879788.3.579.2.21830-29-7022Ydsqdyb262888571 2.16840.1.685196.3.579.2.66947-24-9763Vgcljal29060257 2.16840.1.318466.3.579.2.83232-76-5336Jcgfnsh91122581 2.840.1.663792.3.579.2.80936-32-1622Dzuhhef78893249 2.840.1.787489.3.579.2.99272-27-5379Seqipmk14249311 2.840.1.368719.3.579.2.26230-69-2713Drogbzx10323144 2.840.1.263792.3.579.2.35657-28-8434Chkzxoc72912003 2.840.1.207461.3.579.2.19225-46-7286Vfcjyxs53958526 2.0.1.243820.3.579.2.09289-65-2756Xxxxerg27664410 2.0.1.885977.3.579.2.16506-28-8160Oemglqw65076696 2.0.1.915896.3.579.2.36817-67-1277Etbhjdd09065815 2.0.1.693743.3.579.2.89444-41-6435Jsqncdp91406853 2..1.734060.3.579.2.67830-40-6343Xiqhkyi89271363 2.0.1.390588.3.579.2.02056-05-9922Ppgoime67372458 2.0.1.472210.3.579.2.07178-39-3358Snuwxws46536168 2.840.1.710575.3.579.2.56947-18-5036Fknhjlh15634863 2.840.1.339302.3.579.2.20242-94-5655Xcsgtpq33697150 2.840.1.854332.3.579.2.28597-89-0042Mxmufdt91699242 2.0.1.358846.3.579.2.813802-89-6083Cerykua26535785 2.0.1.523427.3.579.2.406256-61-5957Ztfshnb17981944 2..1.251245.3.579.2.096547-78-4295Agnhdyk4216830 2..1.667501.3.579.2.704021-73-7133Ssyxlwx3863622 2..1.014455.3.579.2.004738-33-8076Vsildnx5030297 2..1.796310.3.579.2.732671-30-2237Uprfrcq5053492 2..1.054715.3.579.2.622058-58-1200Naecypg8819313 2..1.714053.3.579.2.849125-24-7207Wcobkgk0376692 2..1.702839.3.579.2.105945-12-6214Cwtdjdg7360791 2..1.255397.3.579.2.375318-34-2791Vecatdo9387261 2..1.315776.3.579.2.574832-93-1298Pnghebd33218360 2.0.1.583898.3.579.2.54282-64-9059Zprodnn91247345 2.0.1.759777.3.579.2.37083-30-9485Tdmplsb87236312 2.16.840.1.612115.3.579.2.64834-92-9557Nwpmecs49157144 2.0.1.991157.3.579.2.89632-06-1837Jkexsqd79585171 2.0.1.256172.3.579.2.75140-92-0112Ebhedkw25180343 2.0.1.275641.3.579.2.64333-03-4149Zefgfxj41729017 2..1.642162.3.579.2.17775-54-5596Djkgmma13634182 2.0.1.342795.3.579.2.99840-96-2743Kalyjin51700679 2..1.756330.3.579.2.59106-48-7668Vrvbvna31323805 2..1.869064.3.579.2.27977-12-5132Oyjcqlx013890380 2..1.732929.3.579.2.293921-62-3628Njjenqv087093864 2..1.007253.3.579.2.292885-51-4917Tdwlakb372825559 2..1.515559.3.579.2.181037-93-8846Pglbmih910128453 2..1.816503.3.579.2.1244MedicareMedicare [id number] 64ck39vj-561c-44n0-5m39-jht19s2lf687BdgwgxzOlnotawOCT741469916293 297q5562-k4qn-1936-i84s-2463159wn70tCqcxett80075739 2..1.319738.3.579.2.208Cogvvtn05287819 2.16.840.1.012511.3.579.2.531 Jzhschk24076744 2.16.840.1.791922.3.579.2.142Fzqayws22369661 2.16.840.1.902404.3.579.2.443Wbgmncw88721232 2.16.840.1.639135.3.579.2.531 Zooyjfk20945234 2.16.840.1.623419.3.579.2.483Xfdynoa21896002 2.16.840.1.319385.3.579.2.987Mdwpgra55755449 2.16.840.1.263286.3.579.2.531 Lpctxic97436241 2.16.840.1.602786.3.579.2.953Fmnqpvw30859839 2.16.840.1.405766.3.579.2.531 Social History DateTypeDetailFacilityStart: 12-31-2023 End: 37-56-7016Candk caffeine consumptionDaily caffeine consumptionDoctors Hospital Heart-Satellite Beach 250 DO Work Phone: Comment on above:3-4 cups coffee daily;05/17/23 quit; 1/2 dozen cigarettes;Start: 06-11-2022 End: 01-13-3403Ndbimre smoking statusHeavy tobacco smoker (finding)[facility]vue[facility]: 12-31-2023 End: 12-28-9278Oxi [facility] 12-31-1965 End: 27-35-2029Anwyfad smoking status NHISSmoker (finding)[facility]: 16-73-8383Xcd [facility]: 07-02-2022 End: 96-26-1997Rkidllg smoking status NHISEx-smoker (finding)[facility]: 06-76-9991Wpszjzj smoking statusNeverExecutive [facility]rology of [facility] SanduskyStart: 51-90-2083Lcgoiyj of tobacco use Cigarette SmokerUnAdena Fayette Medical Center Work Phone: Start: 01-29-2024 End: 92-43-1496Ptqwfbx use and exposureSmokeless tobacco non-userUnAdena Fayette Medical Center Work Phone: Start: 02-24-2024 End: 99-50-8438Ztxjkwmgk beverage intakeLifetime non-drinker (finding)[facility] Work Phone: Start: 62-82-5457Eyh assigned at birthNot on file [facility] Work Phone: Start: 01-31-2024 End: 47-43-9075Uwfumamx to SARS-CoV-2 (event)Not sureUnAdena Fayette Medical CenterWithin the last year, have you been afraid of your partner or ex-partner?NoNOMS HealthcareAre you now , , , , never or living with a partner?MarriedNOMS HealthcareHow often to you have a drink containing alcohol?NeverNOMS HealthcareDo you feel stress - tense, restless, nervous, or anxious, or unable to sleep at night because yourmind is troubled all the time - these days [OSQ]To some extentNOMS Healthcare(I/We) worried whether (my/our) food would run out before (I/we) got money to buy more. Never trueNOMS HealthcareStart: 12-22-2009 End: 29-49-5181EvqSune (finding)[facility] HospitalHow often do you need to have someone help you when you read instructions, pamphlets, or other written material from your doctor or pharmacy [SILS]AlwaysNOMS Healthcare Sexual OrientationExecutive [facility]rology of [facility] Do you feel stress - tense, restless, nervous, or anxious, or unable to sleep at night because yourmind is troubled all the time - these days [OSQ]Only sergo [facility] HealthcareStart: 71-92-6101Efuozgrqi beverage intakeEx-drinker (finding)NOMS [facility] Medical Equipment Procedure CodeEquipment CodeEquipment Original TextEquipment IdentifierDates Percutaneous endovascular repair of abdominal aortic aneurysm (AAA)Abdominal aorta endovascular stent-graft()[id number])[id number] FDA Start: 27-99-8179Afghwpgbtvur endovascular repair of abdominal aortic aneurysm (AAA)Abdominal aorta endovascular stent-graft ()[id number] FDAStart: 23-33-8198Zzonchzzobly endovascular repair of abdominal aortic aneurysm (AAA)Abdominal aorta endovascular stent-graft()[id number])[id number] FDAStart: 58-77-8411Tmkfrdrwpofl endovascular repair of abdominal aortic aneurysm (AAA) Soft-tissue/mesh anchor, non-bioabsorbable ()[id number] FDAStart: 53-65-8861JJ STENT JERZY FRONTIER 3.0 X 38FDAStart: 54-51-4235RW STENT JERZY FRONTIER 3.0 X 38FDAStart: 20-42-8693LQ STENT JERZY FRONTIER 3.0 X 38FDAStart: 73-46-1085EI STENT JERZY FRONTIER 3.0 X 38FDAStart: 61-19-4014GB STENT JERZY FRONTIER 3.0 X 38FDAStart: 16-59-4724MY STENT JERZY FRONTIER 3.0 X 38FDAStart: 07-21-1326HW STENT JERZY FRONTIER 3.0 X 38FDAStart: 64-61-4231AP STENT JERZY FRONTIER 3.0 X 38FDAStart: 02-91-3073YJ STENT JERZY FRONTIER 3.0 X 38FDAStart: 79-49-2136WR STENT JERZY FRONTIER 3.0 X 38FDAStart: 73-38-1253Mvvilacp peripheral artery stent, bare-metal()[id number] FDAStart: 76-14-4546Hfmppcug peripheral artery stent, bare-metal(02)[id number] FDA Start: 73-06-9016SX STENT JERZY FRONTIER 3.0 X 38FDAStart: 01-16-2024 Goals DatePatient GoalDesired Activity/State Functional Status KavnWibtbjfjcbMlozhqNahqzslf16-81-8691Juygpkszfj StatusN/AExecutive [facility]rology of [facility]12-19-2024Patient Health Questionnaire 2 item (PHQ-2) [Reported][facility] HospitalGwzsiieopj42-07-9468Wqtcuomuol StatusN/AExec[facility] of [facility]08-30-2024Functional status Patient at [facility]Av[facility] Work Phone: 1(925) 801-128508767135-17-0210Suzli score [AUDIT-C]0 12/31/2023 8:57 AM EDT Dora Santiago LPNNOMS Ccjxlagnet00-20-4782Vtdbwzq Health Questionnaire 2 item (PHQ-2) [Reported][facility] HospitalCaggqunolm09-26-1112Hxxxubaupa StatusN/AExec[facility] of [facility]02-05-2024Functional StatusN/A [facility]01-16-2024Functional StatusN/AFC[facility]10-17-2023Functional StatusN/A[facility]07-18-2023Functional StatusN/A [facility]04-26-2023Functional StatusN/A[facility]03-08-2023 Functional StatusN/AExec[facility] 17-14-7435Cbqlgmrxmj statusPatient at BaselineGrand Lake Joint [facility] District [facility]tr Work Phone: 1(963) [phone]exzhjda StatusN/AExec[facility] of [facility]12-22-2022Functional statusPatient Not at BaselineAvita [facility] Work Phone: [facility] Mental Status KbjwRujzswpxmuOqacbzRkwgefbj43-81-4624Jvhofjaqy functionCognitive Status Patient is Progressing Toward [facility] Work Phone: [phone]) 214-989802732424-13-7763Yitvaeyva functionCognitive Status Patient at [facility] Work Phone: 1(589) 273-997112977413-19-1111Ipqlcscqn functionCognitive Status Patient at [facility] Work Phone: Clinical Notes 06-04-2022 to 11-16-2024 Note Date & ClmqEeqyTxtqtdku90-52-6326 Hospital Discharge instructions Patient Education 11/16/2024 14:35:51 [...] provider. Document Revised: 08/01/2021 Document Reviewed: 04/27/2021 Trendabl Patient Education 2021 [employer]. 11/16/2024 14:35:49 Cancer Screening for Males Cancer [...] if anything looks unusual. Males with a xjdwju-djvb-usqjwy risk for skin cancer may want to see a information systems security specialist (chopper operator) for an annual body check. Where to find more information [employer]: cancer.org Centers for Disease Control and Prevention: cdc.gov National Cancer Seltzer: cancer.gov Contact a health care provider if: [...] provider. Document Revised: 05/20/2023 Document Reviewed: 12/02/2022 Trendabl Patient Education 2023 [employer]. Follow Up Care 10/26/2024 10:10:17 With:ARLENE CASILLAS, Katia Macias, URL Address: [facility] [address] , [place] [address]- When: Unknown [facility] [place] 06-24-2025 NotePatient Education Oncology Cancer Screening for [...] if anything looks unusual. Males with a ddcesj-regh-cajkci risk for skin cancer may want to see a information systems security specialist (dermatologi (more content not included)...[facility]06-17-2025 History of Present illness Narrative* Stanley Emerson [...] police. He had a rx ofseraquil from [facility] and she put him back on [...] exacerbation. We discussed and she has a cnmg-fcs-vjxhrlm hydrocortisone cream at home. For now I [...] by mouth at bedtime documented in this encounterHermann Area District HospitalSgrwdrfchw99-79-4664 History of Present illness Narrative* Stanley Emerson MD - 10/14/2024 2:30 PM EDT Images from the original note were not included. Patient ID: Alex Anderson is a 78 y.o. male who presents for: Flowsheet Row Patient Outreach from 10/06/2024 [facility] with Joi Zhang LPN Hospital Information ED, Hospital or Snf Facility Discharge? Hospital Patient has been contacted within two business days of discharge Yes Diagnosis Community acquired pneumonia of lower lobe of lung , Lower extremity edema Edema, Delirium due to another medical condition Discharge Date 10/05/24 Discharged To: Home Setting Discharge [facility] Engagement Call Start Time 1207 Admission Date [...] have any upcoming specialty appointments? Yes [10/08 Forwarder Operator, 10/11 outpatientsurgery for aortic aneuysm left knee] Self Management Does patient have home health? yes What is the home health agency? [facility] Has home health visited the patient within [...] in ER and Hospital. Pt arrived to [facility] ER d/t [facility] crisis line stating to go because of pts increased delusions, hallucinations, and suicidal ideation. found pocket knife on pt as well. Pt transferred to [facility]. Pt positive for metapneumovirus, Urine cultures [...] transition of care note is reviewed. a kyex-wj-guat evaluation is done today. Medical decision making is complex in degree. 3. Lower extremity edema Chronic problem, stable, we will monitor at this time. 4. Delirium due to another medical condition Chronic problem that is currently stable and manageable. It was worse when he was acutely ill. No further adjustments. documented in this [facility]05-21-2025 History of Present illness Narrative* Stanley Emerson MD - 10/13/2024 8:31 AM EDT Reviewed the procedure note. Updated the medical record. documented in this [facility]05-16-2025 History of Present illness Narrative* Ruby Montana [...] knee is scheduled for stent placement on on. He has chronic kidney disease, stage 3B, [...] future interventions. Family holds healthcare power of staff attorney. DNR status temporarily revoked during procedure. [...] I discussed arrhythmia, ECG, shared decision making, Cooke decision tool, informed consent, treatment options, risk, [...] index (BMI) 25.0-25.9, adult Pre-operative cardiovascular examination SY Almendarez LPN, AM SCRIBING FOR AND IN THE PRESENCE OF DR. RUBY MONTANA MD, FACC, FACP,RS I, , personally performed the services described [...] DNR and POA forms, shared decision making, Cooke decision tool, and informed consent [1] Social History Socioeconomic History Marital status: Tobacco Use Smoking status: Former Types: Cigarettes Smokeless tobacco: Never Substance and Sexual Activity Alcohol use: Never Drug use: Never Social Drivers of Health Financial Resource Strain: Low Risk (12/31/2023) [facility] Overall Financial Resource Strain (CARDIA) Difficulty of Paying Living Expenses: Not hard at all Food Insecurity: Patient Unable To Answer (10/02/2024) Received from [email or web address] Hunger Vital Sign Worried About Running Out of Food in the Last Year: Patient unable to answer Ran Out of Food in the Last Year: Patient unable to answer Transportation Needs: Patient Unable To Answer (10/02/2024) Received from [email or web address] PRAPARE - Transportation Lack of Transportation (Medical): Patient unable to answer Lack of Transportation (Non-Medical): Patient unable to answer Physical Activity: Inactive (12/31/2023) [facility] Exercise Vital Sign Days of Exercise per Week: 0 days Minutes of Exercise per Session: 0 min Stress: Stress Concern Present (12/31/2023) Received from [facility] [employer] Occupational Health - Occupational Stress Questionnaire Feeling of Stress : To some extent Social Connections: Moderately Isolated (12/31/2023) Received from [facility] Social Connection and Isolation Panel [NHANES] Frequency of Communication with Friends and Family: More than three times a week Frequency of Social Gatherings with Friends and Family: More than three times a week Attends Caodaism Services: Never Active Member of Clubs or Organizations: No Attends Club or Organization Meetings: Never Marital Status: Intimate Partner Violence: Not At Risk (12/31/2023) Received from [facility] Humiliation, Afraid, Rape, and Kick questionnaire Fear of Current or Ex-Partner: No Emotionally Abused: No Physically Abused: No Sexually Abused: No Housing Stability: Patient Unable To Answer (10/02/2024) Received from [facility] Housing Stability Vital Sign Unable to Pay for Housing in the Last Year: Patient unable to answer Homeless in the Last Year: Patient unable to answer [2] Family History Problem Relation Name Age of Onset Other (bowel obstruction) Mother Brain cancer Father documented in this [facility] Work Phone: 1(483) 131-210905-16-2025 Instructions* Patient Instructions* Sy Lombardo, JOSH - 10/08/2024 3:00 PM EDT Images from the original note were not included. Vascular surgery needs to tell us when he can come off Plavix, and for how long. Please call us as soon as you have this answer, , option #4. Pre-Procedure Patient Information You have been scheduled for: EV- ICD Implant At: [facility] With: Dr. Montana and Dr. Capone Date [...] day before your scheduled procedure, please call [phone]. 3. Please bring a current list of [...] any questions, please contact the office at [phone]. Follow up 1 week after for a wound care check appointment documented in this [facility] Work Phone: 1([phone]) 271-574905-13-2025 History of Present illness Narrative* Jessy Wayne RN - 10/05/2024 1:34 PM EDT AVS reviewed with and patient. All questions answered. Leg bag attached to zapien. IV removed, no complications. Waiting for meds to bed to be delivered. * Servando Hall MD - 10/05/2024 9:46 AM EDT [facility] PROGRESS NOTE 10/05/2024 9:55 AM Name: Alex Anderson Acct: [id number] Room: Day: 3 Admit Date: 10/02/2024 10:30 [...] are in and will be reviewed from [place]. Brief History: 78 yo male admitted to [...] COPD, anemia, AAA post stent, hypothyroidism. Per [facility] records patient was brought in to [facility] ED by due to increasing delusions, hallucinations [...] screening positive for tricyclic antidepressant. Transferred to [facility] for psychiatric assessment and potentially [facility] admission following medical clearance. On admit, patient is ANO x 2, knows his name date, birthday, president. Able to list some family members. Is aware he is in a hospital in [place]. He endorses increasing bilateral lower extremity weakness [...] Intake/Output Summary (Last 24 hours) at 10/05/2024 4364 Last data filed at 10/05/2024 6071 Gross per 24 hour Intake -- Output 2049 ml Net -2049 ml Labs: @LABDAILY3@ Lab Results Component Value [...] - dementia versus delirium -Patient transferred from [facility] due to declining mental status and increasing delusionsand hallucinations. Per chart review patient's was increasingly concerned for the last 2 weekshe has had more hallucinations and delusions, concerned of people coming to find him. Recently obtained a pocket knife that she is unsure how he got. Per chart review endorsed some suicidal ideation -CT head in ED [facility] 10/01 reviewed no acute intracranial abnormality -UDS 10/01 [facility] positive for tricyclic's -On admit patient denies [...] frequency with urination - In ED at [facility], urinalysis small leukocyte esterase moderate bacteria 10/01; BUN 26 creatinine 2.01 -> creatinine 1.9 -[facility] urine culture received 10/05. Positive for Klebsiella [...] review unsure if it was replaced at [facility] A-fib - Patient had some runs of [...] asdocumented by the resident. Urine culture from [facility] growing Klebsiella and Enterobacter sensitive to Cipro. Chronic Zapien. Follow-up urology as outpatient. CT head from [facility], negative. Varicose veins, vascular surgery follow-up as outpatient. Hypokalemia- replaced * Jessy Wayne, ROCIO - 10/05/2024 9:21 AM EDT Oral potassium replaced. * Aristeo Gallardo [facility] - 10/05/2024 8:07 AM EDT Pharmacy Note [...] Daily PT/INR while inpatient. Satish Gallardo PharmD, [facility] 10/05/2024 8:05 AM * Leticia John OTR/Romina - 10/04/2024 2:41 PM EDT [facility] OCCUPATIONAL THERAPY MISSED TREATMENT NOTE INPATIENT Date: 10/04/24 Patient Name: Alex Anderson Room: : 1945 (78 y.o.) Gender: male REASON FOR MISSED TREATMENT: 10/04/24 - Other - Palliative Care INFLATED PAD BUFFER in room initially. Checked back at 1430, with pt working with physical therapy. PCT reported needing to get EKG once pt has completed PT. OT will continue to follow and check back as time permits. 1352; 1430 * Filemon Cerda RN - 10/04/2024 12:10 PM EDT Patient Alert and Oriented x 4, per Jessy CHAN. Bedside truck safety inspector removed, Telesitter placedat bedside. * Jessy Wayne RN - 10/04/2024 11:45 AM EDT Chronic zapien catheter changed. 20 Fr coude. * Fili Gandara MD - 10/04/2024 11:28 AM EDT Department [...] periodically make illogical statements in response to telegraphic typewriter repairer's assessment questions and thought process was somewhat [...] Patient initially presented to the ED from [facility]. He was presented to [facility] for potential admission, but declined as his symptoms were consistent with delirium. Noted he was placed prery application for emergency admission by [facility] secondary to patient'sbehavior at home. per documentation, [...] like him to see Dr. Mcarthur in [place]. Per review of documentation, patient medications managed [...] mEq, 40 mEq, Oral, PRN OR potassium mEq/100 mL IVPB (Peripheral Line), 10 mEq, [...] psychosocial and environmental stressors PLAN Admission to [facility] is not warranted No medication changes [...] agree with assessment. The patient was seen [id number]. The patient is pleasant on approach. He [...] MD - 10/04/2024 9:30 AM EDT [facility] PROGRESS NOTE 10/04/2024 9:40 AM Name: Alex Anderson Acct: [id number] Room: Day: 2 Admit Date: 10/02/2024 10:30 [...] COPD, anemia, AAA post stent, hypothyroidism. Per [facility] records patient was brought in to [facility] ED by due to increasing delusions, hallucinations [...] screening positive for tricyclic antidepressant. Transferred to [facility] for psychiatric assessment and potentially [facility] admission following medical clearance. On admit, patient is ANO x 2, knows his name date, birthday, president. Able to list some family members. Is aware he is in a hospital in [place]. He endorses increasing bilateral lower extremity weakness [...] BID ferrous sulfate 325 mg Oral BID metoprolol succinate 25 mg Oral Daily warfarin [...] - dementia versus delirium -Patient transferred from [facility] due to declining mental status and increasing delusionsand hallucinations. Per chart review patient's was increasingly concerned for the last 2 weekshe has had more hallucinations and delusions, concerned of people coming to find him. Recently obtained a pocket knife that she is unsure how he got. Per chart review endorsed some suicidal ideation -CT head in ED [facility] 10/01 reviewed no acute intracranial abnormality -UDS 10/01 [facility] positive for tricyclic's -On admit patient denies [...] frequency with urination - In ED at [facility], urinalysis small leukocyte esterase moderate bacteria 10/01; [...] review unsure if it was replaced at [facility] A-fib - Patient had some runs of [...] as outpatient Neuro consulted * Constantin Goodwin [facility] - 10/04/2024 9:09 AM EDT Pharmacy Note [...] Notes: Daily PT/INR while inpatient. Constantin Goodwin, PharmD. [facility] 10/04/2024 9:09 AM * Heather Solis APRN - AUXILIARY EQUIPMENT OPERATOR - 10/03/2024 5:44 PM EDT Department of [...] periodically make illogical statements in response to telegraphic typewriter repairer's assessment questions and thought process was somewhat [...] to not meet criteria for admission to [facility] due to delirium and is not [...] Patient initially presented to the ED from [facility]. He was presented to [facility] for potential admission, but declined as his symptoms were consistent with delirium. Noted he was placed perry application for emergency admission by [facility] secondary to patient'sbehavior at home. per [...] like him to see Dr. Mcarthur in [place]. Per review of documentation, patient medications managed [...] mEq, 40 mEq, Oral, PRN OR potassium [id number] mEq/100 mL IVPB (Peripheral Line), 10 mEq, [...] psychosocial and environmental stressors PLAN Admission to [facility] is not warranted No medication changes [...] - 10/03/2024 3:16 PM EDT Physical Therapy [facility] Physical Therapy Evaluation Date: 10/03/24 Patient Name: Alex Anderson Room: Account: [id number] : 1945 (78 y.o.) Gender: male Discharge [...] of pneumonia, UTI, altered mental status. Per [facility] records patient was brought in to [facility] ED by due to increasing delusions, hallucinations [...] screening positive for tricyclic antidepressant. Transferred to [facility] for psychiatric assessment and potentially [facility] admission following medical clearance. Referral Date [...] Unable to demonstrate understanding Functional Outcome Measures [facility] Basic Mobility - Inpatient How much help [...] climbing 3-5 steps with a railing?: Total [facility] In[facility] Mobility Raw Score : [facility] T-Scale Score : 40.78 Mobility Inpatient [...] 2:03 PM EDT New consult to Neurology. [facility] notifed Moris Barragan MD. * Mar Gonzalez RN - 10/03/2024 9:03 AM EDT Patient potassium is low. Potassium oral 40mEq was given per PRN orders * Servando Hall MD - 10/03/2024 8:50 AM EDT [facility] PROGRESS NOTE 10/03/2024 9:59 AM Name: Alex Anderson Acct: [id number] Room: IP Day: 1 Admit Date: 10/02/2024 [...] COPD, anemia, AAA post stent, hypothyroidism. Per [facility] records patient was brought in to [facility] ED by due to increasing delusions, hallucinations [...] screening positive for tricyclic antidepressant. Transferred to [facility] for psychiatric assessment and potentially [facility] admission following medical clearance. On admit, patient is ANO x 2, knows his name date, birthday, president. Able to list some family members. Is aware he is in a hospital in [place]. He endorses increasing bilateral lower extremity weakness [...] - dementia versus delirium -Patient transferred from [facility] due to declining mental status and increasing delusionsand hallucinations. Per chart review patient's was increasingly concerned for the last 2 weekshe has had more hallucinations and delusions, concerned of people coming to find him. Recently obtained a pocket knife that she is unsure how he got. Per chart review endorsed some suicidal ideation -CT head in ED [facility] 10/01 reviewed no acute intracranial abnormality -UDS 10/01 [facility] positive for tricyclic's -On admit patient denies [...] frequency with urination - In ED at [facility], urinalysis small leukocyte esterase moderate bacteria 10/01; [...] AM EDT New consult for Palliative Care. [facility] notified Heather Romo NP. * Aidee Kearns [...] tonight. Daily PT/INR while inpatient. Aidee Kearns, PharmElvie, [facility] * Gi Berrios RN - 10/02/2024 9:00 PM EDT RN attempted to finish patients admission questions, patient was unable to answer. * Tamy Palacios RN - 10/02/2024 6:03 PM EDT [facility] notified Palliative care of new consult placed. [...] at 1.9 (goal 2-3). Patient follows with [facility]. Patient's first time at [facility], sparse documentation in EPIC. Documentation from transferring hospital states patient is on coumadin 2 mg daily. Will schedule coumadin 2 mg tonight, has not received medications since last night. Daily PT/INR while inpatient. Thank you for the consult. Will continue to follow. Aidee Kearns, PharmD, [facility] * Cesar Melendez - 10/02/2024 11:43 AM EDT New consult to Urology. [facility] notified Goldy Garland MD. * Cesar Melendez - 10/02/2024 11:41 AM EDT New consult to Psychiatry. [facility] notified Froy Razo MD. documented in this [...] (CD rom and photo on phone) from [facility] with you but it is also uploaded in media in your chart at [facility] - Follow-up with your vascular surgeon [...] Primary Emergency Contact: Estella Anderson Relation: Spouse Tubular Products Fabricator needed? No Secondary Emergency Contact: Antonio Anderson [...] Assisted Dressing Assisted Toileting Assisted Feeding Independent Town Justice Assisted Med Delivery whole Wound Care Documentation [...] cane, walker, and bath bench Other Treatments: Snf assessment and monitoring. Medication education and monitoring per protocol. Patient's personal belongings (please select all that are sent with patient): Cheko RN SIGNATURE: CASE MANAGEMENT/SOCIAL WORK SECTION Inpatient Status Date: 10/02/2024 Readmission Risk Assessment Score: [facility] RISK OF UNPLANNED READMISSION 2.0 13.1 Total Score Discharging to Facility/ [facility] Address: [address] [place] [address] Dialysis Facility (if applicable) Name: Address: Dialysis Schedule: Phone: Fax: Sprinkler Fitter Helper/Machinery Dismantler signature: PHYSICIAN SECTION Prognosis: Fair Condition at [...] who presents for: Pt reported to his [facility] Nurse yesterday that pt has been having [...] a gentle exercise program. documented in this encounterH[facility] [id number] History of Present illness Narrative* Teo Al [...] Arrangements are going to be made at [facility]. He will be communicated to through the office in the area for the arrangements to be made. His present medical therapy was left unchanged. Assessment/recommendations: 1-history of non-ST elevation myocardial infarction leading to LAD stenting December 2023 at [facility], continue Plavix, high intensity statin, patient is not on aspirin since he is also on Coumadin 2-post [place] paroxysmal atrial fibrillation, currently back in sinus [...] is recommended and will be arranged at [facility]. 5- status post AAA stenting with [facility] 2022 with no complications. 6- chronic kidney disease stage IIIb. Patient's follows with nephrology, basic metabolic profile isordered 7-hyperlipidemia on maximal dose atorvastatin 8- history of TIA, no recurrences 9- slight overweight, encouragement provided for prudent diet and daily activities 10-colon polyp large enough to require surgery, he is refusing follow-up at the [facility] 11- history of bladder cancer [...] daily in the evening. [facility] Patient will take coumadin and eliquis together for 3 days only Assessment/Plan 1. Cardiomyopathy, ischemic Referral to Cardiac Electrophysiology Basic Metabolic Panel Basic Metabolic Panel 2. 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 of [place] heart without angina pectorisBasic Metabolic Panel Basic [...] exam, discussion and plan. [facility] Work Phone: 1(819) 523-810404-18-2025 Instructions* Patient Instructions* Ruth Mojica LPN - [...] 03/29 visit as scheduled. [facility] Work Phone: 1(997) 806-985303-20-2025 Telephone encounter Note* Telephone Encounter - Stanley Emerson MD - 08/12/2024 2:19 PM EDT Entered in error [id number] Miscellaneous Notes* Telephone Encounter - Stanley Emerson MD - 08/12/2024 2:19 PM EDT Entered in error documented in this encounterHermann Area District [id number] Evaluation note* Diagnosis Onset Date Resolution Status Admit Date Abdominal aortic aneurysm without ruptur e acuteMarch 2024 10:25amAnemiaacuteMarch 2024 10:25amCHF (congestive heart failure)acuteMarch 2024 10:25amChronic kidney disease, stage 3bacute August 11, 2024 10:25amHyperlipidemiaacuteMarch 2024 10:25amHypertensive nephropathyacuteMarch 2024 10:25amIron deficiencyacuteMarch 2024 10:25amObstructive nephropathyacuteMarch 2024 10:25am [facility] Work Phone: 1(219) 278-233803-19-2025 Evaluation note* Diagnosis Onset Date Resolution Status Admit Date Abdominal aortic [facility]ur [facility] 10:25amAnemiaacuteMarch 2024 10:25amCHF (congestive heart failure)acute[facility] 2024 10:25amChronic kidney disease, stage 3bacute August 11, 2024 10:25amHyperlipidemiaacuteMarch 2024 10:25amHypertensive nephropathyacuteMarch 2024 10:25amIron deficiencyacuteEast [facility] Hospitalch 2024 10:25amObstructive nephropathyacuteMarch 2024 10:25amAneurysm of left popliteal arteryacuteMay 2024 9:09am [facility] Work Phone: 1(855) 404-216503-19-2025 Evaluation note* Diagnosis Onset Date Resolution Status Admit Date Abdominal aortic aneurysm without ruptur e acuteMarch 2024 10:25amAnemiaacuteMarch 2024 10:25amCHF (congestive heart failure)acuteMarch 2024 10:25amChronic kidney disease, stage 3bacute August 11, 2024 10:25amHyperlipidemiaacuteMarch 2024 10:25amHypertensive nephropathyacuteMarch 2024 10:25amIron deficiencyacuteMarch 2024 10:25amObstructive nephropathyacuteMarch 2024 10:25amAneurysm of left popliteal arteryacuteMay 2024 9:09amAbdominal aortic aneurysm without ruptureacuteJune 2024 3:51pmAnemiaacuteJune 2024 3:51pmCHF (congestive heart failure)acuteJune 2024 3:51pmChronic kidney disease, stage 3bacuteJune 2024 3:51pmHyperlipidemiaacuteJune 2024 3:51pm Hypertensive nephropathyacuteJune 2024 3:51pmIron deficiencyacuteJune 2024 3:51pmObstructive nephropathyacuteJune 2024 3:51pm [facility] Work Phone: 1([phone]) 441-370103-06-2025 History of Present illness Narrative* Teo Al [...] days. He was against going to the [facility] to follow-up on colonic polyp as was suggested by his local stewardess supervisor. He reports no syncope or presyncope his [...] leading to LAD stenting December 2023 at [facility], continue Plavix, high intensity statin, patient is not on aspirin since he is also on Coumadin 2-post [place] paroxysmal atrial fibrillation, currently back in sinus [...] surgery, he is refusing follow-up at the [facility] 11- history of bladder cancer [...] tablet daily in the evening. Follow with [place] [facility]. Patient will take coumadin and eliquis together for 3 days only, Disp: 14 tablet, Rfl: 0 Assessment/Plan 1. Cardiomyopathy, ischemic Follow Up In Cardiology 2. Paroxysmal atrial fibrillation (Multi) 3. High risk medication use 4. 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 of [place] heart without angina pectoris 5. S/P PTCA (percutaneous transluminal coronary angioplasty) 6. ST elevation myocardial infarction (STEMI), unspecified artery (Multi) 7. Essential hypertension 8. Dyslipidemia 9. Stage 3a chronic kidney disease (Multi) 10. Transient cerebral ischemia, unspecified type 11. Hematuria, unspecified type 12. Hyperthyroidism 13. BMI 26.0-26.9,adult 14. Former smoker Scribe Attestation By signing my name below, IEliePebbles Fanny MORENO , Scribe attest that this [...] exam, discussion and plan. documented in [facility]Mi[facility] Work Phone: 1(142) 570-405703-06-2025 Instructions* Patient Instructions* Pebbles Arcos LPN - [...] through Care Everywhere. * Heart Healthy Diet (Filipino) [facility]University [facility] Work Phone: 1(978) 713-479602-20-2025 Hospital Discharge instructions Patient Education 07/15/2024 14:05:29 [...] cells. Follow these instructions at home: Take opgb-dql-fjjpbmk and prescription medicines only as told by [...] is important. Where to find more information [employer] (ACS): cancer.org National Cancer Seltzer (NCI): cancer.gov Contact a health care provider [...] provider. Document Revised: 04/22/2022 Document Reviewed: 04/22/2022 ElseEndymed Patient Education 2023 [place]. Follow Up Care 06/01/2024 11:03:36 With:JOSSELIN BARR HEATHER Bell, URL Address: [address] [place] [address] When:Within 1 Month(s) [facility] 02[facility]-2025 NotePatient Education Oncology Bladder Cancer Bladder [...] Follow these instructions at home: ??? Take kbhy-iun-jfnzruh and prescription medicines only as told by [...] important. Where to find more information ??? [employer] (ACS): cancer.org ??? National Cancer Seltzer (NCI): cancer.gov Contact a health care provider [...] This information is n (more content not included)...[facility] 06-07-2024 NotePatient Education Urology Hematuria, Adult Hematuria [...] these instructions at home: Medicines ??? Take rbgu-xga-yfzkzkj and prescription medicines only as told by [...] the blood stops without treatment. ??? Take wptu-bee-mswlbep and prescription medicines only as told by your health care provider. ??? Drink enough fluid to keep your urine pale yellow. This information is not intended to replace advice given to you by your health care provider. Make sure you discuss any questions you have with your health care provider. Document Revised: 01/10/2021 Document Reviewed: 01/10/2021 Trendabl Patient Education ? 2023 [place].[facility] 05-21-2024 History of Present illness Narrative* Teo [...] described. They are considering consultation at the [facility] for large colonic polyp that [...] leading to LAD stenting December 2023 at [facility], continue Plavix, high intensity statin, patient is not on aspirin since he is also on Coumadin 2-post [place] paroxysmal atrial fibrillation, currently back in sinus [...] he is following for that at the [facility]. 11- history of bladder cancer [...] tablet daily in the evening. Follow with [place] [facility]. Patient will take coumadin and [...] Stimulating Hormone 3. 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 of [place] heart without angina pectoris 4. S/P PTCA [...] exam, discussion and plan. documented in [facility] encounterMi[facility] Work Phone: 1(372) 452-266812-27-2024 Instructions* Patient Instructions* Pebbles Arcos LPN - [...] through Care Everywhere. * Heart Healthy Diet (Filipino) documented in [facility] encounterMi[facility] Work Phone: 1(589) 152-676112-19-2024 History of Present illness Narrative* Stanley Emerson [...] Do you have a medical power of staff attorney?: No Objective : BP 122/74 Pulse [...] through a living will, durable power of staff attorney for healthcare, or other advanced directives. [...] on May 29, 2024 documented in this encounterHermann Area District [id number] History of Present illness Narrative* Stanley Emerson [...] to encourage good nutrition. documented in this encounterHermann Area District [id number] Hospital Discharge instructions Patient Education 04/06/2024 11:31:42 [...] provider. Document Revised: 08/01/2021 Document Reviewed: 04/27/2021 Trendabl Patient Education 2021 [place]. 04/06/2024 11:28:52 Cancer Screening for Males Cancer [...] if anything looks unusual. Males with a sxsiaq-oczy-ldduof risk for skin cancer may want to see a information systems security specialist (chopper operator) for an annual body check. Where to find more information [employer]: cancer.org Centers for Disease Control and Prevention: cdc.gov National Cancer Seltzer: cancer.gov Contact a health care provider if: [...] provider. Document Revised: 05/20/2023 Document Reviewed: 12/02/2022 Trendabl Patient Education 2023 [place]. Follow Up Care 02/25/2024 15:13:08 With:ARLENE CASILLAS, ADRIA Sterling Address: [facility] [address] , [place] [address]- When: Unknown [facility] Dominic 11-12-2024 NotePatient Education Oncology Cancer Screening [...] if anything looks unusual. Males with a rqqvwn-ntml-yycpwe risk for skin cancer may want to see a information systems security specialist (dermatologi (more content not included)...[facility]10-24-2024 History of Present illness Narrative* Stanley Emerson [...] further evaluation or treatment. documented in this encounterHermann Area District [id number] History of Present illness Narrative* Leanne Soriano [...] m (6' 2 ) documented in this [facility] Work Phone: 1(443) 837-681909-24-2024 History of Present illness Narrative* Stanley Emerson [...] 1 each; Refill: 0 documented in this encounterHermann Area District [id number] History of Present illness Narrative* Teo Al MD - 02/10/2024 9:20 AM EDT Subjective Alex Anderson is a 78 y.o. male Chief Complaint Hospital Follow-up HPI 78-year-old white male who recent underwent LAD stenting for anterior STEMI at [facility] by Dr. Pruett. He subsequently developed atrial [...] leading to LAD stenting December 2023 at [facility], continue Brilinta, high intensity statin, patient is not on aspirin since he is also on Eliquis 2-post NJ paroxysmal atrial fibrillation, currently back in sinus [...] medication use 3. 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 of [place] heart without angina pectoris 4. S/P PTCA [...] exam, discussion and plan. documented in this [facility] Work Phone: 1(101) 646-360509-17-2024 Instructions* Patient Instructions* Pebbles Arcos LPN - [...] through Care Everywhere. * Heart Healthy Diet (Filipino) [facility] Work Phone: 1(318) 571-905908-30-2024 Consult note Author Rogelio Rai [facility] January 23, 2024 12:43pmNote Date/TimeAugust 2023 12:29[place] [address] Physiatry (Rehab) Consult Note Signed Patient: Alex Anderson MR#: [id number] : 1945 Acct:[id number] Age/Sex: 78 / M Adm Date: 4 Loc: Room: [address] [place] [address] Type: ADM IN Attending Dr: Nas Pruett [...] post mid LAD stenting for ST elevation NJ (01/15) course complicated by hypotension, atrial fibrillation, and recently sundowning/delirium. and daughter at bedside. We had a long discussion about post acute care planning, please see below. They were a little unsettled about events from lastnight as it regards to his agitation and behaviors. Review of Systems Review of Systems Unobtainable due to mental status PMFSH Source: Obtained From Family Medical History Zapien [...] Appearance Clear Urine pH 5.5 Ur Specific [place] 1.022 Urine Protein Trace H Urine Glucose [...] post mid LAD stenting for ST elevation NJ (01/15) course complicated by hypotension, atrial fibrillation, [...] would recommend SNF closer to home in [place]. I understand this may be a [...] chart, including current orders, allied health and home service consultant notes, labs/imaging and performed diaz elements of exam and I formulated the plan of care and facilitated the medical decision making. I completed a substantive portion of this encounter, the medical decision making portion of this note in its entirety, including Allied health note review, nursing note review, home service consultant note review, discussion with nursing and case management, and more than 50% of my time was spent on counseling and coordination of care, time spent 40 minutes Documented By: Rogelio Rai MD 01/23/24 1207 Signed By: <Electronically signed by Rogelio Rai MD> 01/23/24 1246 [facility] Work Phone: 1(937) 798-177708-30-2024 Progress note Author Isaac Edwards [facility] January 23, 2024 12:01pmNote Date/TimeAugust 2023 11:[address] [address] Progress Note Signed Patient: Alex Anderson MR#: [id number] : 1945 Acct:[id number] Age/Sex: 78 / M Adm Date: 4 Loc: 4 Room: [address] [place] [address] Type: ADM IN Attending Dr: Nas Pruett DO Copies to: ~ Date of Service: 01/23/2024 Progress Narrative Note PROGRESS NOTE Progress Note: Patient had episode of agitation/sundowning last evening. His chronic indwelling zaipen catheter hasbeen changed per nursing. He is stable from a respiratory perspective on room air. Pulmonary has nothing further to add. We will sign off. Please call if we can be of assistance. Documented By: Isaac Edwards MD 4 1158 Signed By: <Electronically signed by MD Isaac Edwards> 01/23/24 1201 [facility] Work Phone: 1(739) 701-924708-30-2024 Consult note Author Rob Almazan [facility] January 23, 2024 3:21pmNote Date/TimeAugust 2023 8:34[place] [id number] Hospitalist Consult Note Signed Patient: Alex Anderson MR#: [id number] : 1945 Acct:[id number] Age/Sex: 78 / M Adm Date: 4 Loc: 4 Room: [address] [place] [address] Type: ADM IN Attending Dr: Nas Pruett [...] for that which is noted above in [facility] Medical History Zapien catheter in place BPH [...] Son [facility]: Diagnosed with Mental Illness Social History [...] % (Auto) 64.3, Lymph % (Auto) 15.6, Worth % (Auto) 16.0, Eos % (Auto) 3.6, Baso % (Auto) 0.5, Nucleat RBC Rel Count 0.1, Neut # (Auto) 5.7, Lymph # (Auto) 1.4, Worth # (Auto) 1.4 H, Eos # (Auto) [...] signed by Rob Almazan MD> 01/23/24 1521 [facility] Work Phone: 1(621) 877-488908-30-2024 Progress note Author Jakob Lomax [facility] January 23, 2024 12:26amNote Date/TimeAugust 2023 12:[address] [address] Progress Note Signed Patient: Alex Anderson MR#: [id number] : 1945 Acct:[id number] Age/Sex: 78 / M Adm Date: 4 Loc: Room: [address] [place] [address] Type: ADM IN Attending Dr: Nas Pruett DO Copies to: ~ Date of Service: 01/22/2024 Progress Narrative Note PROGRESS NOTE Progress Note: Patient had a security alert called earlier this evening after getting aggressive with PCT, I responded to the security alert and received full report from bedside and primer charger regarding the events.patient did fall but only [...] will plan to use Haldol 5mg IM, primer charger aware to notify me if needed. Formal consult to come tomorrow Documented By: Jakob Lomax DO 01/23/2421 Signed By: <Electronically signed by Jakob Lomax DO> 01/23/246 [facility] Work Phone: 1(929) 386-797908-29-2024 Progress note Author Teo Al [facility] January 22, 2024 2:01pmNote Date/TimeAugust 2023 2:01[place] [address] Cardiology Progress Note Signed Patient: Alex Anderson MR#: [id number] : 1945 Acct:[id number] Age/Sex: 78 / M Adm Date: 4 Loc: Room: [address] [place] [address] Type: ADM IN Attending Dr: Nas Pruett [...] need toby found as the next step. compotype operator and PT will be consulted Exam Physical Exam Vital Signs: Temp Pulse Resp BP Pulse Ox O2 Del Method O2 Flow Rate 98.4 F 64 16 98/65 L 96 Room Air 2 01/22/24 11:01/22/24 11:01/22/24 11:01/22/24 11:01/22/24 11:01/22/24 11:01/19/24 10:00 Const General: cooperative, comfortable and [...] heart failure Documented By: Teo Al MD, [facility] 4 0695 Signed By: <Electronically signed by MD [place] Al> 01/22/24 1409 [facility] Work Phone: 1(816) 556-881608-29-2024 Progress note Author Isaac Edwards [facility] January 22, 2024 1:58pmNote Date/TimeAugust 2023 1:58pmCynthia [place] [id number] Pulmonology Progress Note Signed Patient: Alex Anderson MR#: [id number] : 1945 Acct:[id number] Age/Sex: 78 / M Adm Date: 4 Loc: 4 Room: [address] [place] [address] Type: ADM IN Attending Dr: Nas Pruett [...] <Electronically signed by MD Isaac Edwards> 01/22/24 1354 [facility] Work Phone: 1(857) 860-116108-28-2024 Progress note Author Teo Al [facility] January 21, 2024 5:24pmNote Date/TimeAugust 2023 5:24[place] [address] Cardiology Progress Note Signed Patient: Alex Anderson MR#: [id number] : 1945 Acct:[id number] Age/Sex: 78 / M Adm Date: 4 Loc: Room: [address] [place] [address] Type: ADM IN Attending Dr: Nas Pruett [...] % (Auto) 64.3 Lymph % (Auto) 15.6 Worth % (Auto) 16.0 Eos % (Auto) 3.6 Baso % (Auto) 0.5 Nucleat RBC Rel Count 0.1 Neut # (Auto) 5.7 Lymph # (Auto) 1.4 Worth # (Auto) 1.4 H Eos # (Auto) [...] heart failure Documented By: Teo Al MD, [facility] 1721 Signed By: <Electronically signed by [facility]GACY HEALTHQuynh Al> 01/21/241723 [facility] Work Phone: 1(816) 708-268208-28-2024 Progress note Author Isaac Edwards [facility] January 21, 2024 11:45amNote Date/TimeAugust 2023 11:31[place] [address] Pulmonology Progress Note Signed Patient: Alex Anderson MR#: [id number] : 1945 Acct:[id number] Age/Sex: 78 / M Adm Date: 4 Loc: Room: [address] [place] [address] Type: ADM IN Attending Dr: Nas Pruett [...] signed by MD Isaac Edwards> 01/21/24 1145 [facility] Work Phone: 1(583) 293-224508-27-2024 Progress note Author Teo Al [facility] January 20, 2024 3:58pmNote Date/TimeAugust 2023 3:[place] [address] Cardiology Progress Note Signed Patient: Alex Anderson MR#: [id number] : 1945 Acct:[id number] Age/Sex: 78 / M Adm Date: 4 Loc: Room: [address] [place] [address] Type: ADM IN Attending Dr: Nas Pruett [...] Room Air 2 01/20/24 12:00 01/20/24 15:01/20/24 15:01/20/24 15:01/20/24 15:01/20/24 15:01/19/24 10:00 Const General: cooperative, comfortable [...] % (Auto) 71.9 Lymph % (Auto) 11.8 Worth % (Auto) 14.3 Eos % (Auto) 1.7 Baso % (Auto) 0.3 Nucleat RBC Rel Count 0.0 Neut # (Auto) 6.8 Lymph # (Auto) 1.1 Worth # (Auto) 1.4 H Eos # (Auto) [...] heart failure Documented By: Teo Al MD, [facility] 4 1555 Signed By: <Electronically signed by MD [place] Al> 01/20/24 1558 [facility] Work Phone: 1(239) 508-505808-27-2024 Progress note Author Isaac Edwards [facility] January 20, 2024 12:59pmNote Date/TimeAugust 2023 8:53[place] [id number] Pulmonology Progress Note Signed Patient: Alex Anderson MR#: [id number] : 1945 Acct:[id number] Age/Sex: 78 / M Adm Date: 4 Loc: Room: [address] [place] [address] Type: ADM IN Attending Dr: Nas Pruett [...] <Electronically signed by MD Isaac Edwards> 01/20/24 2538 [facility] Work Phone: 1(712) 184-606108-26-2024 Progress note Author Isaac Edwards [facility] January 19, 2024 1:20pmNote Date/TimeAugust 2023 9:06[place] [address] Pulmonology Progress Note Signed with Addenda Patient: Alex Anderson MR#: [id number] : 1945 Acct:[id number] Age/Sex: 78 / M Adm Date: 4 Loc: Room: [address] [place] [address] Type: ADM IN Attending Dr: Nas Pruett [...] <Electronically signed by MD Isaac Edwards> 01/19/24 [facility]8 [facility] Work Phone: 1(180) 130-639408-26-2024 Progress note Author Teo Al [facility] January 19, 2024 12:11pmNote Date/TimeAuestefania 2023 12:11pm[address] [address] Cardiology Progress Note Signed Patient: Alex Anderson MR#: [id number] : 1945 Acct:[id number] Age/Sex: 78 / M Adm Date: 4 Loc: Room: [address] [place] [address] Type: ADM IN Attending Dr: Nas Pruett [...] % (Auto) 78.5 Lymph % (Auto) 8.8 Worth % (Auto) 11.9 Eos % (Auto) 0.4 Baso % (Auto) 0.4 Nucleat RBC Rel Count 0.1 Neut # (Auto) 8.6 H Lymph # (Auto) 1.0 Worth # (Auto) 1.3 H Eos # (Auto) [...] heart failure Documented By: Teo Al MD, [facility] 4 1206 Signed By: <Electronically signed by MD [place] Al> 01/19/24 1211 [facility] Work Phone: 1(424) 651-498608-25-2024 Progress note Author Justina Lomelim [facility] January 18, 2024 3:10pmNote Date/TimeAugust 2023 3:10[place] [address] Pulmonology Progress Note Signed Patient: Alex Anderson MR#: [id number] : 1945 Acct:[id number] Age/Sex: 78 / M Adm Date: 4 Loc: Room: [address] [place] [address] Type: ADM IN Attending Dr: Nas Pruett [...] -300 / -950 Weight 98.6 kg Labs 08/25/24 05:36 01/18/24 05:36 Microbiology Micro: Microbiology 3 [...] managing post PCI/stent in LAD for acute NJ. He is on beta- maldonado, antiplatelets, statin, [...] signed by Justina Lara MD> 01/18/24 1510 [facility] Work Phone: 1(307) 777-655008-25-2024 Progress note Author Ana Castro [facility] January 18, 2024 12:49pmNote Date/TimeAugust 2023 12:50[place] [address] Cardiology Progress Note Signed Patient: Alex Anderson MR#: [id number] : 1945 Acct:[id number] Age/Sex: 78 / M Adm Date: 4 Loc: Room: [address] [place] [address] Type: ADM IN Attending Dr: Nas Pruett [...] MPV Neut % (Auto) Lymph % (Auto) Worth % (Auto) Eos % (Auto) Baso % (Auto) Nucleat RBC Rel Count Neut # (Auto) Lymph # (Auto) Worth # (Auto) Eos # (Auto) Baso # (Auto) PHA Creatinine Clear Sodium Potassium Chloride Carbon Dioxide Anion Gap BUN Creatinine Est GFR (CKD-EPI) Glucose POC Glucose 115 126 Calcium Urine Color Light-yellow Urine Appearance Cloudy A Urine pH 6.0 Ur Specific [place] 1.018 Urine Protein Trace H Urine Glucose [...] % (Auto) 75.1 Lymph % (Auto) 11.5 Worth % (Auto) 12.8 Eos % (Auto) 0.2 Baso % (Auto) 0.4 Nucleat RBC Rel Count 0.0 Neut # (Auto) 9.1 H Lymph # (Auto) 1.4 Worth # (Auto) 1.5 H Eos # (Auto) 0.0 Baso # (Auto) 0.0 PHA Creatinine Clear 46.65 Sodium 136 Potassium 3.7 Chloride 107 Carbon Dioxide 21.2 Anion Gap 11.5 BUN 29 H Creatinine 1.59 H Est GFR (CKD-EPI) 43.613 Glucose 125 H POC Glucose Calcium 8.7 Urine Color Urine Appearance Urine pH Ur Specific [place] Urine Protein Urine Glucose (UA) Urine Ketones [...] signed by MD Ana Castro> 01/18/24 1249 [facility] Work Phone: 1(224) 701-861908-24-2024 Progress note Author Ana Castro [facility] January 17, 2024 12:43pmNote Date/TimeAugust 2023 12:43[place] [address] Cardiology Progress Note Signed Patient: Alex Anderson MR#: [id number] : 1945 Acct:[id number] Age/Sex: 78 / M Adm Date: 4 Loc: Room: [address] [place] [address] Type: ADM IN Attending Dr: Nas Pruett [...] MPV Neut % (Auto) Lymph % (Auto) Worth % (Auto) Eos % (Auto) Baso % (Auto) Nucleat RBC Rel Count Neut # (Auto) Lymph # (Auto) Worth # (Auto) Eos # (Auto) Baso # (Auto) Platelet Estimate Plt Morphology Comment RBC Morphology PHA Creatinine Clear Sodium Potassium Chloride Carbon Dioxide Anion Gap BUN Creatinine Est GFR (CKD-EPI) Glucose POC Glucose POC Glucose Comment Calcium Troponin I High Sens 45349.4 H* 982938.2 H* 109538.4 H* Triglycerides Cholesterol LDL Cholesterol, Calc VLDL Cholesterol HDL Cholesterol Cholesterol/HDL Ratio 01/16/24 01/16/24 01/16/24 18:37 19:15 21:31 Corrected WBC Uncorrected WBC Count RBC Hgb Hct MCV MCH MCHC RDW Plt Count MPV Neut % (Auto) Lymph % (Auto) Worth % (Auto) Eos % (Auto) Baso % (Auto) Nucleat RBC Rel Count Neut # (Auto) Lymph # (Auto) Worth # (Auto) Eos # (Auto) Baso # (Auto) Platelet Estimate Plt Morphology Comment RBC Morphology PHA Creatinine Clear Sodium Potassium Chloride Carbon Dioxide Anion Gap BUN Creatinine Est GFR (CKD-EPI) Glucose POC Glucose 119 118 POC Glucose Comment Glu2: cleaned meter Calcium Troponin I High Sens 12256.2 H* Triglycerides Cholesterol LDL Cholesterol, Calc VLDL Cholesterol HDL Cholesterol Cholesterol/HDL Ratio 01/17/24 01/17/24 01/17/24 04:37 07:14 11:52 Corrected WBC 17.7 H Uncorrected WBC Count 17.7 H RBC 4.46 Hgb 12.7 L Hct 38.4 L MCV 86.1 MCH 28.4 MCHC 33.0 RDW 15.8 H Plt Count 135 L MPV 9.0 Neut % (Auto) 77.1 Lymph % (Auto) 6.9 Worth % (Auto) 15.6 Eos % (Auto) 0.0 Baso % (Auto) 0.4 Nucleat RBC Rel Count 0.0 Neut # (Auto) 13.6 H Lymph # (Auto) 1.2 Worth # (Auto) 2.8 H Eos # (Auto) [...] Comment Calcium 8.9 Troponin I High Sens 17471.6 H* Triglycerides 67 Cholesterol 74 L LDL [...] signed by MD Ana Castro> 01/17/24 1243 [facility] Work Phone: 1(113) 699-773008-24-2024 Progress note Author Justina Lara [facility] January 17, 2024 11:57amNote Date/TimeAugust 2023 11:[address] [address] Pulmonology Progress Note Signed Patient: Alex Anderson MR#: [id number] : 1945 Acct:[id number] Age/Sex: 78 / M Adm Date: 4 Loc: Room: [address] [place] [address] Type: ADM IN Attending Dr: Nas Pruett [...] managing post PCI/stent in LAD for acute NJ. He is on beta- maldonado, antiplatelets, statin, [...] signed by Justina Lara MD> 01/17/24 1157 [facility] Work Phone: 1(430) 545-308908-23-2024 Consult note Author Justina Lara [facility] January 16, 2024 3:19pmNote Date/TimeAugust 2023 3:16[place] [address] Pulmonology Consult Note Signed Patient: Alex Anderson MR#: [id number] : 1945 Acct:[id number] Age/Sex: 78 / M Adm Date: 4 Loc: Room: [address] [place] [address] Type: REG [facility] Attending Dr: Nas Pruett DO Copies to: [...] abdominal pain nausea was diagnosed with acute NJ and transferred from [facility]. He underwent left heart catheterization and stent in mid LAD Review of Systems Review of Systems All other systems reviewed & are negative unless noted below or in HPI Constitutional Constitutional: Reports as per HPI Cardiovascular Cardiovascular: Reports as per HPI and Reports chest pain at rest [facility] Medical History (Updated 01/16/24 @ 12:52 by Nas Pruett DO) Zapien catheter in place BPH (benign prostatic hyperplasia) Bladder cancer removed Difficulty swallowing pills COVID-19 history 01/14 Problem List clean-up per request of Phys. [facility] COPD (chronic obstructive pulmonary disease) Osteoarthritis Kidney failure stage 1 Hyperlipidemia Obstructive uropathy Vitamin B 12 deficiency Problem List clean-up per request of Phys. [facility] Folic acid deficiency [place] Tobacco abuse quit april of 2023 Problem List clean-up per request of [facility]. [facility] Bilateral hydronephrosis TIA (transient ischemic attack) Problem List clean-up per request of Phys. [facility] Dyslipidemia Essential hypertension Kidney stones history of Problem List clean-up per request of Phys. [facility] Surgical History (Updated 12/31/23 @ 14:22 by Cathy Rankin, ROCIO) S/P cystoscopy Status post endovascular aneurysm repair (EVAR) History of bilateral cataract extraction Family History (Updated 12/31/23 @ 14:22 by Cathy Rankin, ROCIO) Father Brain tumor Mother Rheumatic fever Brother [...] managing post PCI/stent in LAD for acute NJ. He is on beta- maldonado, antiplatelets, statin, antihypertensive medication per cardiology Monitor creatinine post cath Bronchodilators as needed for COPD Chest x-ray in a.m. DVT prophylaxis Lovenox Documented By: Justina Lara MD 01/16/24 1509 Signed By: <Electronically signed by Justina Lara MD> 01/16/24 1519 [facility] Work Phone: 1(570) 385-119808-23-2024 History and physical note Author Nas Pruett [facility] January 16, 2024 12:53pmNote Date/TimeAugust 2023 12:[place] [address] Cardiology H&P Signed Patient: Alex Anderson MR#: [id number] : 1945 Acct:[id number] Age/Sex: 78 / M Adm Date: 4 Loc: Room: [address] [place] [address] Type: REG [facility] Attending Dr: Nas Pruett DO Copies to: MD Nas Richards DO~ Date of Service: 01/16/2024 Cardiology HPI History of Present Illness Chief complaint: Anterior STEMI HPI: Mr. Anderson is a 78 year old male transferred from [place] with acute anterior ST elevation NJ; original phone call taken from outside ER attending at 09:30 AM. Patient arrived in [facility] at 1116, after attempted right femoral approachand [...] (beginning of his suspectedsymptomatology); finally went to [place] ER around 9- 30 this morning whereupon he was appropriately he diagnosed, appropriate upstream therapy instituted under my direction after discussion with ER attending, and emergently transferred to [facility] for revascularization. Total 60 minutes nonprocedural critical care time were devoted to the outside ERattending and staff, [facility] [employer] [facility] staff, nursing staff, patient and family pre and post procedurally Review of Systems Review of Systems All other systems reviewed & are negative unless noted below or in HPI Constitutional Constitutional: Reports as per HPI Cardiovascular Cardiovascular: Reports as per HPI and Reports chest pain at rest [facility] Medical History (Updated 01/16/24 @ 12:52 by Nas Pruett DO) Zapien catheter in place BPH (benign prostatic hyperplasia) Bladder cancer removed Difficulty swallowing pills COVID-19 history 01/14 Problem List clean-up per request of Phys. [facility] COPD (chronic obstructive pulmonary disease) Osteoarthritis Kidney failure stage 1 Hyperlipidemia Obstructive uropathy Vitamin B 12 deficiency Problem List clean-up per request of Phys. EHR [facility] Folic acid deficiency [place]owning Tobacco abuse quit april of 2023 Problem List clean-up per request of Phys. [facility] Bilateral hydronephrosis TIA (transient ischemic attack) Problem List clean-up per request of Phys. [facility] Dyslipidemia Essential hypertension Kidney stones history of Problem List clean-up per request of Phys. EHR [facility] Surgical History (Updated 12/31/23 @ 14:22 by Cathy Rankin, ROCIO) S/P cystoscopy Status post endovascular aneurysm repair (EVAR) History of bilateral cataract extraction Family History (Updated 12/31/23 @ 14:22 by Cathy Rankin, ROCIO) Father Brain tumor Mother Rheumatic fever Brother [...] Interpretations EKG EKG results cardiology: sinus rhythm NJ, pacemaker, normal Myocardial infarction: anterior NJ (acute or recent) A&P - Cardiology (1) [...] signed by Nas Pruett DO> 01/16/24 1253 [facility] Work Phone: 1(552) 104-713808-23-2024 Procedure [facility]08-23-2024 Procedure [facility]08-21-2024 Procedure [facility]05-10-2024 Hospital Discharge instructions Patient Education 10/03/2023 [...] Follow these instructions at home: Medicines Take ifom-cxu-zkryjji and prescription medicines only as told by [...] provider. Document Revised: 01/31/2021 Document Reviewed: 01/31/2021 Trendabl Patient Education 2022 [place]. Follow Up Care 08/15/2023 11:04:15 With:ARLENE CASILLAS, ADRIA Sterling Address: [facility] [address], [place] [address]- [phone] When: Unknown [facility] Dominic 02-05-2024 Hospital Discharge instructions Patient Education 06/30/2023 [...] Follow these instructions at home: Medicines Take jhhw-fmx-mrlhxhw and prescription medicines only as told by [...] provider. Document Revised: 01/31/2021 Document Reviewed: 01/31/2021 Trendabl Patient Education 2022 [place]. Follow Up Care 05/06/2023 11:11:29 With:ARLENE CASILLAS, ADRIA Sterling Address: [facility] [address], [place] [phone] When: Unknown Comments:1 day for catheter removal [facility] Hospital Discharge instructions Patient Education 06/10/2023 [...] cotton underwear to absorb moisture and keep continuous drier helper. 6. Keep the drainage bag below the [...] [facility] [address] , [place] [address]- Business (1) When:06/24/2023 15:15:55 Comments:for zapien removal [facility]12-12-2023 Evaluation note* Encounter Date Diagnosis Assessment Notes Treatment Notes Treatment Clinical Notes Apr, Primary hypertension (ICD-10 - I 10) [facility] Other 11-21-2023 Evaluation note* Encounter Date Diagnosis [...] supplement. I asked the patient to continue qiqf-jmt-gspwuie iron supplement once or twice daily Mar,rimary hypertension (ICD-10 - I10)BP is elevated. Will start Norvasc 5 mg PO daily. i asked the patient to monitor Bp closely with tapering steroid dose [facility] Other 10-17-2023 Hospital Discharge instructions Patient Education [...] including vitamins, herbs, eye drops, creams, and jvqt-ivj-vjetcqk medicines. Any problems you or family members [...] provider tells you to take them. Taking ujrm-otw-akqkzfh medicines, vitamins, herbs, and supplements. Surgery safety [...] provider. Document Revised: 02/05/2022 Document Reviewed: 02/05/2022 Trendabl Patient Education 2022 [place]. 03/11/2023 14:15:06 Benign Prostatic Hyperplasia Benign Prostatic [...] urethra. Follow these instructions at home: Take wmej-vas-tfvsiwk and prescription medicines only as told by [...] provider. Document Revised: 11/28/2021 Document Reviewed: 11/28/2021 ElseEndymed Patient Education 2022 [place]. Follow Up Care 02/07/2023 16:01:50 With:ARLENE CASILLAS, Katia Macias, URL Address: [facility] [address], [place] [address]- When:Within 3 Month(s) Comments:Sched cysto/FISH/Cytol/BT check [facility] 10-17-2023 Evaluation + Plan note Diagnostic Tests Pending * UroVysion Fish and Urine Cyto ([facility]) 03/11/23 [facility]07-18-2023 Evaluation + Plan note Diagnostic Tests Pending * UroVysion Fish and Urine Cyto ([facility]) 12/10/22 [facility]07-18-2023 Hospital Discharge instructions Patient Education [...] if anything looks unusual. Men with a hrrlny-uevw-sulfcn risk for skin cancer may want to see a information systems security specialist (chopper operator) for an annual body check. What are the benefits of screening? Cancer screening is done to look for cancer in the very early stages, before it spreads and becomesharder to treat and before you would start to notice symptoms. Finding cancer early improves the chances of successful treatment. It may save your life. Where to find more information [employer]: www.cancer.org Centers for Disease Control and Prevention: www.cdc.gov National Cancer Seltzer: www.cancer.gov Contact a health care provider if: [...] provider. Document Revised: 10/08/2021 Document Reviewed: 04/07/2020 ElseEndymed Patient Education 2022 [place]. Follow Up Care 11/15/2022 14:27:10 With:ARLENE CASILLAS, Katia Macias, URL Address: [facility] [address] , [place] [address]- When: Unknown [facility] [place] 04-26-2023 Hospital Discharge instructions Patient Education 09/18/2022 [...] cells. Follow these instructions at home: Take gmpd-xbz-mvbbunl and prescription medicines only as told by [...] is important. Where to find more information [employer] (ACS): cancer.org National Cancer Seltzer (NCI): cancer.gov Contact a health care provider [...] provider. Document Revised: 04/22/2022 Document Reviewed: 04/22/2022 Trendabl Patient Education 2022 [place]. Follow Up Care 08/26/2022 14:12:46 With:ARLENE CASILLAS, Katia Macias, URL Address: [facility] [address] [place] [address]- When: Unknown [facility] 04-10-2023 NoteEXAM: XR CHEST 2 [...] have his bladder tumor removal as scheduled. [facility] Other 03-08-2023 Evaluation + Plan note Diagnostic Tests Pending * UroVysion Fish and Urine Cyto ([facility]) 07/31/22 [facility] 03-08-2023 Hospital Discharge instructions Patient [...] including vitamins, herbs, eye drops, creams, and xpkm-ufj-inbxuiz medicines. Any problems you or family members [...] provider tells you to take them. Taking ycxb-prn-nqjxngl medicines, vitamins, herbs, and supplements. Tests You [...] 03/08/2010 Document Revised: 12/11/2018 Document Reviewed: 12/11/2018 Trendabl Patient Education 2020 [place]. Follow Up Care 07/25/2022 10:56:51 With:ARLENE CASILLAS, Katia Macias, URL Address: [facility] [address] , [place] [address]- When: Unknown [facility] [place] 03-02-2023 Evaluation note* Encounter Date Diagnosis Assessment [...] some bladder issues. I did call the [employer]. The device is compatible up to 3 Maggi for MRI. I explained this to the family and the patie nt. Jul,Other specified postprocedural states (ICD-10 - Z98.890) Jul,ersonal history of other diseases of the circulatory system (ICD-10 - Z86.79) [facility]* Encounter Date Diagnosis Assessment [...] plan to do this percutaneously under MAC. [facility] Other 01-17-2023 Hospital Discharge instructions Patient Education [...] including vitamins, herbs, eye drops, creams, and aluv-gmm-kdihlnd medicines. Any problems you or family members [...] provider tells you to take them. ?Taking xndl-tth-nbqltip medicines, vitamins, herbs, and supplements. Follow instructions [...] Follow these instructions at home: Medicines Take wlry-zob-lxjjotc and prescription medicines only as told by [...] 05/09/2001 Document Revised: 05/04/2019 Document Reviewed: 05/04/2019 Trendabl Patient Education 2020 [place]. Follow Up Care 05/22/2022 13:37:28 With:[facility] [place] Address: [address] [place] [address] Business (1) When: Unknown Comments:our senior power scheduler will be contacting you for follow-up [facility] 01-12-2023 Evaluation note* Encounter Date Diagnosis [...] to proceed all his questions were addressed. [facility] Other 01-10-2023 Evaluation note* Encounter Date Diagnosis [...] (ICD-10 - E78.5) Patient is on statin [facility] Other Discharge summary Author Teo Al [facility] January 23, 2024 3:52pmNote Date/TimeAugust 2023 3:[place] [address] Discharge Summary Signed Patient: Alex Anderson MR#: [id number] : 1945 Acct:[id number] Age/Sex: 78 / M Adm Date: 4 Loc: Room: [address] [place] [address]: Nas Pruett DO Copies to: MD eTo Richards MD, [facility] Nas Pruett DO~ Providers Date of Discharge: 01/23/24 Discharging Provider: Teo Al Primary Care Provider: Stanley Emerson Consults: 01/16/24 12:54 Consult to Pulmonology Routine Comment: Consulting Provider: MIGUEL Mariscal, [facility] Reason For Exam: [...] Course Hospital course: Patient was transferred from [facility] emergency department with anterior ST elevation myocardial infarction and was taken straight to the [facility] by Dr. Pruett and underwent urgent PCI [...] baseline dementia and there was timeswhen he sundownand and became more agitated requiring [...] doctor or pharmacist, without first calling the urgent care technician who implanted the stent. If you [...] weight lifting, stair steppers, etc. until the urgent care technician approves these activities. Check with the urgent care technician on your first follow-up visit. CALL YOUR HYDRO GENERATION SUPERVISOR: -If bleeding should occur from the catheter insertion site- apply pressure to the site then immediately call us. -Report any fever, redness, drainage, increased swelling, or firmness at the catheter insertion site. Some bruising or slight swelling may be present at thetime of discharge. -Should arm or leg become cold, numb, white, or blue, contact the urgent care technician immediately. -IF you should experience episodes [...] Cardiopulmonary Rehabilitation program is recommended. The attending urgent care technician or a nurse clinician should provide you with specificinstructions regarding activity, diet, medications, and further follow up for you. Follow the medication instructions provided on your discharge. If the dosages and instructions on this sheet differ from the dosage and instructions on the bottle, follow the instructions on the bottle. [facility] is not responsible for incorrect prescription [...] Appearance Clear, Urine pH 5.5, Ur Specific [place] 1.022, Urine Protein Trace H, Urine Glucose (UA) Normal, Urine Ketones Negative, Urine Occult Blood 2+ H,Urine Nitrite Negative, Urine Bilirubin Negative, Urine Urobilinogen 2 H, Ur Leukocyte Esterase 4+ H, Urine RBC 20-49 H, Urine WBC 20-49 H, Urine WBC Clumps Rare H, Ur Squamous Epith CellsN/A, Urine Bacteria Rare, Hyaline Casts None, Urine Mucus Rare Documented By: Teo Al MD, [facility] 4 1548 Signed By: <Electronically signed by [facility] Teo Al> 01/23/24 1552 [facility] Work Phone: Evaluation + Plan note No data available for this section [facility] evaluation + Plan note Future Appointments Appointment Date:10/04/2022 10:00:00 AM Scheduled Provider: Location:[facility] Appointment Type:URO Nurse Visit [facility] Evaluation + Plan note Future Appointments Appointment Date:06/16/2023 10:00:00 AM Scheduled Provider: Location:[facility] Appointment Type:URO Nurse Visit Appointment Date:06/30/2023 01:30:00 PM Scheduled Provider:Katia SAMUELS MD Location:[facility] Appointment Type:URO Office Visit Diagnostic Tests Pending * UroVysion Fish and Urine Cyto ([facility]) [facility] App[facility]ments Appointment Date:06/30/2023 01:30:00 PM Scheduled Provider:Katia SAMUELS MD Location:[facility] Appointment Type:URO Office Visit [facility] evaluation + Plan note Future Appointments Appointment Date:07/01/2023 08:30:00 AM Scheduled Provider: Location:[facility] Appointment Type:URO Nurse Visit [facility] evaluation + Plan note Future Appointments Appointment Date:09/09/2023 02:15:00 PM Scheduled Provider:Katia SAMUELS MD Location:[facility] Appointment Type:URO Procedure 15 min [facility] Evaluation + Plan note Future Appointments Appointment Date:10/07/2023 02:45:00 PM Scheduled Provider:Katia SAMUELS MD Location:[facility] Appointment Type:URO Procedure 15 min [facility] evaluation + Plan note Future Appointments Appointment Date:10/31/2023 11:00:00 AM Scheduled Provider: Location:[facility] Appointment Type:URO Nurse Visit [facility] Evaluation + Plan note Future Appointments Appointment Date:10/31/2023 11:00:00 AM Scheduled Provider: Location:[facility] Appointment Type:URO Nurse Visit Diagnostic Tests Pending * UroVysion Fish and Urine Cyto ([facility]) [facility]ments Appointment Date:11/04/2023 10:30:00 AM Scheduled Provider: Location:[facility] Appointment Type:URO Nurse Visit [facility] evaluation + Plan note Future Appointments Appointment Date:12/02/2023 11:00:00 AM Scheduled Provider:TC Boles APRN, [place] X Location:[facility] Appointment Type:URO Office Visit [facility] evaluation + Plan note Future Appointments Appointment Date:01/20/2024 11:30:00 AM Scheduled Provider:TC Boles APRN, [place] Location:[facility] Appointment Type:URO Office Visit [facility] evaluation + Plan note Future Appointments Appointment Date:04/06/2024 11:00:00 AM Scheduled Provider:Kaita SAMUELS MD Location:[facility] Appointment Type:URO Procedure 15 min [facility] evaluation + Plan note Future Appointments Appointment Date:05/06/2024 12:30:00 PM Scheduled Provider:Fabi Antonio Location:[facility] Appointment Type:URO Office Visit Appointment Date:10/05/2024 02:00:00 PM Scheduled Provider:[facility]S [facility] Procedure 15 min [facility] Evaluation + Plan note Future Appointments Appointment Date:05/06/2024 12:30:00 PM Scheduled Provider:Fabi Antonio Location:[facility] Appointment Type:URO Office Visit Appointment Date:10/05/2024 02:00:00 PM Scheduled Provider:[facility]ELS [facility] Type:[facility]O Procedure 15 min Diagnostic Tests Pending * UroVysion Fish and Urine Cyto ([facility]) 04/06/24 [facility] Evaluation + Plan note Future Appointments Appointment Date:06/29/2024 10:00:00 AM Scheduled Provider:HEATHER OMALLEY PA-C Location:[facility] Appointment Type:URO Office Visit Appointment Date:10/05/2024 02:00:00 PM Scheduled Provider:Katia SAMUELS MD Location:[facility] Appointment Type:URO Procedure 15 min [facility] evaluation + Plan note Future Appointments Appointment Date:08/12/2024 11:20:00 AM Scheduled Provider:HEATHER OMALLEY PA-C Location:[facility] Appointment Type:URO Complex Office Visit Appointment Date:10/05/2024 02:00:00 PM Scheduled Provider:Katia SAMUELS MD Location:[facility] Appointment Type:URO Procedure 15 min [facility] evaluation + Plan note Future Appointments Appointment Date:11/16/2024 02:00:00 PM Scheduled Provider:Katia SAMUELS MD Location:[facility] Appointment Type:URO Procedure 15 min [facility] evaluation + Plan note Future Appointments Appointment Date:12/14/2024 11:00:00 AM Scheduled Provider:Eboni Anderson PA-C Location:[facility] Appointment Type:URO Office Visit [facility] Evaluation + Plan note Future Appointments Appointment Date:12/14/2024 11:00:00 AM Scheduled Provider:Eboni Anderson PA-C Location:[facility] Appointment Type:URO Office Visit Diagnostic Tests Pending * UroVysion Fish and Urine Cyto ([facility]) 11/16/24 [facility] Evaluation + Plan note Future Appointments Appointment Date:01/12/2025 12:30:00 PM Scheduled Provider:Eboni Anderson PA-C Location:[facility] Appointment Type:URO Office Visit [facility] evaluation + Plan note Future Appointments Appointment Date:02/10/2025 01:50:00 PM Scheduled Provider:TC Boles APRN, [place] Location:[facility] Appointment Type:URO Office Visit [facility] evaluation + Plan note Future Appointments Appointment Date:03/10/2025 01:50:00 PM Scheduled Provider:TC Boles APRN, [place] Location:[facility] Appointment Type:URO Office Visit [facility] evaluation + Plan note Future Appointments Appointment Date:04/07/2025 11:00:00 AM Scheduled Provider:TC Boles APRN, [place] Location:[facility] Appointment Type:URO Complex Office Visit [facility] evaluation note* Diagnosis Onset Date Resolution Status AAA (abdominal aortic aneurysm) acuteAcute kidney injuryacuteAcute metabolic encephalopathyacuteBilateral hydronephrosisacuteBladder massacuteDiarrheaacuteFolic acid deficiencyacute HyperkalemiaacuteMetabolic acidosisacutePre-operative cardiovascular examination, bradyarrhythmiaacute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acute SundowningacuteTIA (transient ischemic attack)acuteTobacco abuseacuteUTI (urinary tract infection)acuteVitamin B 12 deficiencyacute [facility] Work Phone: evaluation noteNo assessment information available [facility] Work Phone: Evaluation noteNo InformationNoThe [facility] Other Evaluation note* Diagnosis Onset Date Resolution Status Status post endovascular aneurysm repair (EVAR) acuteAbdominal aortic aneurysm without ruptureacuteAnemiaacuteChronic kidney disease, stage 3bacuteHyperlipidemiaacuteHypertensive nephropathyacuteIron deficiencyacuteObstructive nephropathyacute [facility] Work Phone: evaluation note* Diagnosis Onset Date Resolution Status Abdominal aortic aneurysm without ruptur e acuteAnemiaacuteChronic kidney disease, stage 3bacuteHyperlipidemiaacute Hypertensive nephropathyacuteIron deficiencyacuteObstructive nephropathyacute [facility] Work Phone: Evaluation note* Diagnosis Onset Date Resolution Status Abdominal aortic aneurysm without ruptur e acuteAtrial fibrillation, new onsetacuteChronic kidney disease, stage 3bacute Chronic systolic heart failureacuteDeliriumacuteHyperlipidemiaacuteHypertension acuteHypertensive nephropathyacuteHypotensionacuteImpaired mobility and activities of daily livingacuteIron deficiencyacuteIschemic cardiomyopathyacute Sleep-wake cycle disorderacuteST elevation myocardial infarction (STEMI) of anterior wallacuteStatus post endovascular aneurysm repair (EVAR)acuteStented coronary arteryacute [facility] Work Phone: Evaluation note* Diagnosis Onset [...] disease, stage 3bacuteHyperlipidemiaacute Hypertensive nephropathyacuteIron deficiencyacuteObstructive nephropathyacute [facility] Work Phone: Evaluation note* Diagnosis Paroxysmal atrial fibrillation (Multi) Atrial fibrillation documented in this encounter [facility] Work Phone: Evaluation note* Diagnosis Pneumonia of left lower lobe due to infectious organism- Primary Simple chronic bronchitis (CMS/HCC) Simple chronic bronchitis documented in this encounter [facility] HealthcareEvaluation note* Diagnosis Onset Date Resolution [...] 3bacuteHyperlipidemiaacute Hypertensive nephropathyacuteIron deficiencyacuteObstructive nephropathyacute Chest congestionnoneactive [facility] Work Phone: Evaluation note* Diagnosis Onset [...] nephropathyacuteIron deficiencyacuteObstructive nephropathyacute Chest congestionnoneactiveRight lower lobe pneumonianoneactive [facility] Work Phone: Evaluation note* Diagnosis Pneumonia of right lower lobe due to infectious organism documented in this encounter [facility] HealthcareEvaluation [facility]* Diagnosis 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 of [place] heart without angina pectoris- Primary Paroxysmal atrial [...] health QT prolongation documented in this encounter [facility] Work Phone: Evaluation note* Diagnosis Simple chronic bronchitis (CMS/HCC) Simple chronic bronchitis documented in this encounter [facility] HealthcareEvaluation note* Diagnosis Paroxysmal atrial fibrillation (Multi) Atrial fibrillation High risk medication use 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 of [place] heart without angina pectoris S/P PTCA (percutaneous transluminal coronary angioplasty) Postsurgical percutaneous transluminal coronary angioplasty status ST elevation myocardial infarction (STEMI), unspecified artery (Multi) Cardiomyopathy, ischemic Other specified forms of chronic ischemic heart disease Essential hypertension Unspecified essential hypertension Dyslipidemia Other and unspecified hyperlipidemia Abdominal aortic aneurysm (AAA) greater than 5.5 cm in diameter in male ([facility]-HCC) Transient cerebral ischemia, unspecified type Stage 3a chronic kidney disease (Multi) BMI 26.0-26.9,adult Former smoker Personal history of tobacco use, presenting hazards to health documented in this encounter [facility] Work Phone: Evaluation note* Diagnosis Essential hypertension, benign (CMS/HCC) Essential hypertension, benign Hypertensive nephropathy (CMS/HCC) Unspecified hypertensive kidney disease with chronic kidney disease stage I through stage IV, or unspecified Stage 3a chronic kidney disease (HCC) (CMS/HCC) Microalbuminuria Proteinuria Panlobular emphysema (CMS/HCC) Other emphysema Simple chronic bronchitis ([facility]/HCC) Simple chronic bronchitis Mixed dyslipidemia ([facility]/HCC) Polypharmacy Issue of repeat prescriptions Mixed conductive [...] in this encounter [facility] note* Diagnosis Cardiomyopathy, ischemic- Primary Other specified forms of chronic ischemic heart disease 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 of [place] heart without angina pectoris Paroxysmal atrial fibrillation (Multi) Atrial fibrillation High risk medication use S/P PTCA (percutaneous transluminal coronary angioplasty) Postsurgical percutaneous transluminal coronary angioplasty status ST elevation myocardial infarction (STEMI), unspecified artery (Multi) Infrarenal abdominal aortic aneurysm (AAA) without rupture ([facility]) Essential hypertension Unspecified essential hypertension Dyslipidemia Other and unspecified hyperlipidemia Stage 3a chronic kidney disease (Multi) Transient cerebral ischemia, unspecified type Hematuria, unspecified type Hyperthyroidism Thyrotoxicosis without mention of goiter or other cause, without mention of thyrotoxic crisis or storm BMI 26.0-26.9,adult Former smoker Personal history of tobacco use, presenting hazards to health documented in this encounter [facility] Work Phone: Evaluation note* Diagnosis ST elevation myocardial infarction (STEMI), unspecified artery (Multi) Cardiomyopathy, ischemic Other specified forms of chronic ischemic heart disease 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 of [place] heart without angina pectoris S/P PTCA (percutaneous transluminal coronary angioplasty) Postsurgical percutaneous transluminal coronary angioplasty status documented in this encounter [facility] Work Phone: Evaluation note* Diagnosis Onset Date Resolution Status Admit Date Abdominal aortic aneurysm without ruptur e [facility] 2024 10:25amAnemiaacuteMi[facility] 2024 10:25amCHF (congestive heart failure)acuteMi[facility] 2024 10:25amChronic kidney disease, stage 3bacute August 11, 2024 10:25amHyperlipidemiaacuteMi[facility] 2024 10:25amHypertensive nephropathyacuteMi[facility] 2024 10:25amIron deficiencyacuteMi[facility] Hospital 2024 10:25amObstructive nephropathyacuteMi[facility] Hospital 2024 10:25am [facility] Work Phone: Evaluation note* Diagnosis Recurrent UTI- Primary Urinary tract infection, site not specified Need for prophylaxis against urinary tract infection documented in this encounter [facility] HealthcareEvaluation note* Diagnosis Cardiomyopathy, ischemic Other specified forms of chronic ischemic heart disease 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 of h[place]ai heart without angina pectoris S/P PTCA (percutaneous [...] health BMI 26.0-26.9,adult documented in this encounter [facility] Work Phone: Evaluation note* Diagnosis 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 disturbance, psychotic disturbance, mood disturbance, or anxiety (CMS/HCC) Hallucinations Need for prophylaxis against urinary tract infection Indwelling urinary catheter present Former smoker Personal history of tobacco use, presenting hazards to health Polypharmacy Issue of repeat prescriptions Overweight documented in this encounter [facility] HealthcareEvaluation note* Diagnosis Community acquired pneumonia [...] Acute metabolic encephalopathy documented in this encounter [facility] HealthEvaluation note* Diagnosis Cardiomyopathy, ischemic- Primary [...] Unspecified cardiac dysrhythmia documented in this encounter [facility] Work Phone: Evaluation note* Diagnosis Peripheral vascular disease (CMS/HCC)- Primary Unspecified peripheral vascular disease Presence of stent in artery Encounter for examination following treatment at hospital Pneumonia of left lower lobe due to infectious organism Lower extremity edema Edema Delirium due to another medical condition documented in this encounter [facility] HealthcareEvaluation note* Diagnosis Pneumonia of left lower lobe due to infectious organism Encounter for examination following treatment at hospital Lower extremity edema Edema Delirium due to another medical condition documented in this encounter [facility] HealthcareEvaluation note* Diagnosis Venous insufficiency of both lower extremities- Primary Venous stasis dermatitis of right lower extremity 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 disturbance, psychotic disturbance, mood disturbance, or anxiety ([facility]) documented in this encounter [facility] HealthcareEvaluation note* Diagnosis Onset Date Resolution Status Admit Date Abdominal aortic aneurysm without ruptur e acuteOctober 2024 2:22pmAnemiaacuteOctober 2024 2:22pmCHF (congestive heart failure)acuteOctober 2024 2:22pmChronic kidney disease, stage 3bacuteOctober 2024 2:22pmHyperlipidemiaacuteOctober 2024 2:22pmHypertensive nephropathyacuteOctober 2024 2:22pmHypokalemiaacute March 09, 2025 2:22pmIron deficiencyacuteOct2024 2:22pm Obstructive nephropathyacuteOct2024 2:22pm [facility] Work Phone: History and physical note Author Willy Lambert [facility] January 14, 2024 8:46amNote Date/TimeAugust 2023 8:[place] [address] Gastroenterology H&P Signed Patient: Alex Anderson MR#: [id number] : 1945 Acct:[id number] Age/Sex: 78 / M Adm Date: 4 Loc: Room: Type: [facility] Attending Dr: Willy Lambert MD [...] signed by Willy Lambert MD> 01/14/24 0846 [facility] Work Phone: [facility] general Narrative - Reported* Type Description Date Medical History ACUTE KIDNEY INJURY Medical HistoryOBSTRUCTIVE UROPATHYMedical HistoryPRE-OPERATIVE CARDIOVASCULAR EXAMINATION, BRADYARRHYTHMIAMedical HistoryBILATERAL HYDRONEPHROSISMedical HistoryBLADDER MASSMedical HistoryAAA (ABDOMINAL AORTIC ANEURYSM)Medical History TOBACCO ABUSEMedical HistoryDEMENTIAMedical HistorySUNDOWNINGMedical History VITAMIN B 12 DEFICIENCYMedical HistoryFOLIC ACID DEFICIENCYSurgical History KIDNEY STONE REMOVEDHospitalization HistoryACUTE KIDNEY INJURY, 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, BLADDER MASS05/16/22 [facility] Other [facility] general Narrative - Reported* Type Description Date Medical History ACUTE KIDNEY INJURY Medical HistoryOBSTRUCTIVE UROPATHYMedical HistoryPRE-OPERATIVE CARDIOVASCULAR EXAMINATION, BRADYARRHYTHMIAMedical HistoryBILATERAL HYDRONEPHROSISMedical HistoryBLADDER MASSMedical HistoryAAA (ABDOMINAL AORTIC ANEURYSM)Medical History TOBACCO ABUSEMedical HistoryDEMENTIAMedical HistorySUNDOWNINGMedical History VITAMIN B 12 DEFICIENCYMedical HistoryFOLIC ACID DEFICIENCYSurgical History KIDNEY STONE REMOVEDSurgical HistoryEVARHospitalization HistoryACUTE KIDNEY INJURY, 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, BLADDER MASS05/16/22 [facility] Other [facility] general Narrative - Reported* Type Description Date Medical History ACUTE KIDNEY INJURY Medical HistoryOBSTRUCTIVE UROPATHYMedical HistoryPRE-OPERATIVE CARDIOVASCULAR EXAMINATION, BRADYARRHYTHMIAMedical HistoryBILATERAL HYDRONEPHROSISMedical HistoryBLADDER MASSMedical HistoryAAA (ABDOMINAL AORTIC ANEURYSM)Medical History TOBACCO ABUSEMedical HistoryDEMENTIAMedical HistorySUNDOWNINGMedical History VITAMIN B 12 DEFICIENCYMedical HistoryFOLIC ACID DEFICIENCYSurgical History KIDNEY STONE REMOVEDSurgical HistoryEVARSurgical HistoryTURBT, CYSTOSCOPY 09/12/2022Surgical HistoryCYSTOSCOPY07/30/2022Surgical HistorySTENT OVER AORTIC ANEURYSM06/2022Hospitalization HistoryACUTE KIDNEY INJURY, 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, BLADDER MASS05/16/22Hospitalization HistorySEE ABOVE [facility] Other Hospital Discharge instructions No data available for this section [facility] Progress note No data available for this section [facility] reason for referral (narrative)* Consultation (Routine) - AuthorizedSpecialtyDiagnoses / ProceduresReferred By ContactReferred To ContactCardiac Rehabilitation Diagnoses 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 of h[place]apai heart without angina pectoris S/P PTCA (percutaneous transluminal coronary angioplasty) ST elevation myocardial infarction (STEMI), unspecified artery (Multi) Teo Al MD [address] [place] [address], [place] [phone] Referral IDStatusReasonSaint Francis DateExpiration DateVisits RequestedVisits [id number] Specialty Services Required Scheduling Instructions [facility] * PFT (Routine) - AuthorizedSpecialtyDiagnoses / ProceduresReferred By Contact Referred To Contact Diagnoses Paroxysmal atrial fibrillation (Multi) High risk medication use Procedures Complete Pulmonary Function Test (Spirometry/DLCO/Lung Volumes) Teo Al MD [facility] 2, [address] [address] Referral IDStatusReasonSaint Francis DateExpiration DateVisits RequestedVisits [id number]/17/20249/17/202511 * Imaging (Routine) - AuthorizedSpecialtyDiagnoses / ProceduresReferred By ContactReferred To ContactRadiology Diagnoses Paroxysmal atrial fibrillation (Multi) High risk medication use Procedures XR chest 2 views Teo Al MD [address] [facility], [place] [address] [place], [place] [id number] Referral IDStatusReasonStart DateExpiration DateVisits RequestedVisits [id number] Perform Procedure * Consultation (Routine) - AuthorizedSpecialtyDiagnoses / ProceduresReferred By ContactReferred To ContactCardiology Diagnoses Paroxysmal atrial fibrillation (Multi) Procedures Follow Up In Cardiology Teo Al MD [address] [facility], [place] [phone] Teo Al MD [address] [facility], [place] [address] Referral IDStatusReasonStart DateExpiration DateVisits RequestedVisits [id number]/17/20249/17/202511 * Cardiovascular (Routine) - AuthorizedSpecialtyDiagnoses / ProceduresReferred By ContactReferred To Contact Diagnoses Paroxysmal atrial fibrillation (Multi) Procedures ECG 12 Lead Teo Al MD [address], [place] [phone] Referral IDStatusReasonStart DateExpiration DateVisits RequestedVisits [id number]/17/20249/17/202511 * Cardiovascular (Routine) - AuthorizedSpecialtyDiagnoses / ProceduresReferred By ContactReferred To Contact Diagnoses Paroxysmal atrial fibrillation (Multi) Procedures ECG 12 Lead Teo Al MD [address] [facility] [address], [address] [address] Referral IDStatusReasonStdublin DateExpiration DateVisits RequestedVisits [id number]/17/20249/ [facility] Work Phone: Reason for referral (narrative)No reason for referral information availableMedina Hospital Work Phone: Reason for visit Narrative* CV Imaging (Routine) - AuthorizedSpecialtyDiagnoses / ProceduresReferred By ContactReferred To ContactCardiology Diagnoses ST elevation myocardial infarction (STEMI), unspecified artery (Multi) Cardiomyopathy, ischemic 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 of h[place]ai heart without angina pectoris S/P PTCA (percutaneous transluminal coronary angioplasty) Procedures Transthoracic Echo Limited AK ECHO TRANSTHORC R-T 2D W/WO M-MODE REC F-UP/LMTD AK DOPPLER ECHO COLOR FLOW VELOCITY MAPPING AK DOPPLER ECHO PULSE WAVE W/SPECTRAL F-UP/LMTD STD Teo Al MD [address] [place] [address] 2, [place] [phone] Phone: tel: fax: Referral IDStatusReasonStdublin DateExpiration DateVisits RequestedVisits [id number] Perform Procedure [facility] Work Phone: Summary Purpose Family History Unknown Family Member [...] bladderUnknownsonFamily history of mental disorderUnknown Advance Directives Advance Directive Response Recorded Date/ Time Advance Directives No April 10:36am Advance Directive Response Recorded Date/ Time Advance Directives No April 11:36am Date ActivatedDate InactivatedComments10/04/2024 3:24 PMDate ActivatedDate InactivatedComments10/02/2024 10:49 AM10/04/2024 3:24 PMNameRelationshipHealthcare Agent RelationshipCommunicationEstella WyattcoySpousePrimary Decision Maker* Antonioeleazar WyattiesChildSecondary Decision Maker* Lindy WyattiesChildSecondary Decision Maker* TypeDate RecordedPatient RepresentativeExplanationACP-Advance Directive10/06/2024 4:23 PMACP-Do Not Resuscitate10/06/2024 4:22 PMDate ActivatedDate Inactivated Comments10/04/2024 3:24 PM10/05/2024 4:27 PMDate ActivatedDate InactivatedComments 10/02/2024 10:49 AM10/04/2024 3:24 PMNameRelationshipHealthcare Agent Relationship CommunicationEllen DavcoySpousePrimary Decision Maker* Antonio WyattcoyChildSecondary Decision Maker* Lindy WyattcoyChildSecondary Decision Maker* Chief Complaint and Reason for [...] I71.4 1 YR F/U AAA; CTA AT [facility] Chief Complaint I71.4 1 YR F/U AAA; CTA AT [facility] RENAL 6 month f/uReason for VisitStatus post [...] section and content) DATE CREATED AUTHOR 05/12/2021 [facility] [employer] [facility] DATE CREATED AUTHOR AUTHOR'S ORGANIZ ATION 09/23/2022 [facility] DATE CREATED AUTHOR AUTHOR'S ORGANIZ ATION 01/23/2023 [facility] DATE CREATED AUTHOR AUTHOR'S ORGANIZ ATION 01/23/2023 [facility] DATE CREATED AUTHOR AUTHOR'S ORGANIZ ATION 08/03/2024 [facility] DATE CREATED AUTHOR AUTHOR'S ORGANIZ ATION 08/14/2024 [facility] DATE CREATED AUTHOR AUTHOR'S ORGANIZ ATION 10/07/2024 [facility] DATE CREATED AUTHOR AUTHOR'S ORGANIZ ATION 10/08/2024 [facility] DATE CREATED AUTHOR AUTHOR'S ORGANIZ ATION 10/12/2024 [facility] DATE CREATED AUTHOR AUTHOR'S ORGANIZ ATION 11/10/2024 [facility] DATE CREATED AUTHOR AUTHOR'S ORGANIZ ATION 11/12/2024 [facility] DATE CREATED AUTHOR AUTHOR'S ORGANIZ ATION 11/17/2024 [facility] DATE CREATED AUTHOR AUTHOR'S ORGANIZ ATION 12/15/2024 [facility] DATE CREATED AUTHOR AUTHOR'S ORGANIZ ATION 03/11/2025 [facility] DATE CREATED AUTHOR AUTHOR'S ORGANIZ ATION 03/19/2025 [facility] Ambulatory Patient Care team informatio n (unrecognized section [...] Active Start: August 11, 2024 End: August 11Arabella Lew ProviderActiveStart: August 11, 2024 End: August 11, 2024 Team Status: Inactive Member Role Status Dates Stanley Emerson MD Primary Care Provider Active Start: September 23, 2024 End: September 23, 2024Arabella Llanos ProviderActiveStart: September 23, 2024 End: September 23, 2024 Team Status: Inactive Member Role Status Dates Talya oB MD Attending Provider Active Sta rt: September [...] Care Provider Active Start: October 27, 2024 Arabella Bills ProviderActiveStart: October 27, 2024 Team Status: Inactive Member Role Status Dates tSanley Emerson MD Primary Care Provider Active Start: November 03, 2024 End: November 03reggie Griffin MDAttending ProviderActiveStart: November 03, 2024 End: November 03, 2024 Team Status: Active Member Role Status Dates Stanley Emerson MD Primary Care Provider Active Start: August 02, 2024 Arabella Bills ProviderActiveStart: August 02, 2024 Team Status: Inactive Member Role Status Dates Stanley Emerson MD Primary Care Provider Active Start: December 26, 2023 End: December 26, 2023Arabella Almonte ProviderActiveStart: December 26, 2023 End: December 26, 2023 Team Status: Inactive Member Role Status Dates Stanley Emerson MD Primary Care Provider Active Start: January 14, 2024 End: January 13Arabella Clarke ProviderActiveStart: January 14, 2024 End: January 14, 2024 Team Status: Active Member Role Status Dates Stanley Emerson MD Primary Care Provider Active Start: January 14, 2024 Willy Lambert MDAttending Provider, Other ProviderActiveStart: January 14, 2024 Team [...] 16, 2024 End: January 22enedict Romina Yeboah Jr, DOOther ProviderActiveStart: January 16, 2024 End: January [...] DOOther ProviderActiveStart: January 16, 2024 End: January 22ndgrecia Gonsales MDOther ProviderActiveStart: January 16, 2024 End: January 22shea Zambrano MDOther ProviderActiveStart: January 16, 2024 End: January 23, 2024Anand Mckenzie MDOther ProviderActiveStart: January 16, 2024 End: January 23, 2024Roseann Velasco APRNOther ProviderActiveStart: January 16, 2024 End: January 23, 2024Be Hammer ProviderActiveStart: January 16, 2024 End: January 22angeles Sanford MDOther ProviderActiveStart: January 16, 2024 End: January 23, 2024Taz Barnes MDOther ProviderActiveStart: January 16, 2024 End: January 23, 2024Rupa Tran MDOther ProviderActiveStart: January 16, 2024 End: January 23, 2024Michamilton Masterson DOOther ProviderActiveStart: January 16, 2024 End: January 23, 2024Be Perez ProviderActiveStart: January 16, 2024 End: January 23, 2024Jad Jaffe MDOther ProviderActiveStart: January 16, 2024 End: January 22ayah Hernandez NP-COther ProviderActiveStart: January 16, 2024 End: January 22dsusi Sandra APRNOther ProviderActiveStart: January 16, 2024 End: January 23, 2024Rob Almazan MDOther ProviderActiveStart: January 16, 2024 End: January 23, 2024Danielito Claros MDOther ProviderActiveStart: January 16, 2024 End: January 22Be Avila ProviderActiveStart: January 16, 2024 End: January 23, 2024Basilio Tam MDOther ProviderActiveStart: January 16, 2024 End: January 22jennifer Garcia MDOther ProviderActiveStart: January 16, 2024 End: January 23, 2024Lydia Rene DOOther ProviderActiveStart: January 16, 2024 End: January 23, 2024Lucas Dumas DOOther ProviderActiveStart: January 16, 2024 End: January 23, 2024Cortney Watkins APRNOther ProviderActiveStart: January 16, 2024 End: January [...] MDOther ProviderActiveStart: January 16, 2024 Justina Lara , MDAttending Provider, Other ProviderActiveStart: January 16, 2024 Shania Armijo MDOther ProviderActiveStart: January 16, 2024 Team Status: Active Member Role Status Dates Stanley Emerson MD Primary Care Provider Active Start: January 23, 2024 Nas Pruett , DOAdmit Provider, Other ProviderActiveStart: January 23, 2024 Myesha Feliz MDOther ProviderActiveStart: January 23, 2024 Rogelio Rai MDOther ProviderActiveStart: January 23, 2024 Heaven Truong , APRNOther ProviderActiveStart: January 23, 2024 Mckay Yeboah Jr, DOOther ProviderActiveStart: January 23, 2024 Ryley Hoyt MDOther ProviderActiveStart: January 23, 2024 Ledy Randle , ROCIOOther ProviderActiveStart: January 23, 2024 Thu Alvarez , ROCIOOther ProviderActiveStart: January 23, 2024 Jen Delgado , RNOther ProviderActiveStart: January 23, 2024 Jennifer Rogel , ROCIOOther ProviderActiveStart: January 23, 2024 Daisha Li , ROCIOOther ProviderActiveStart: January 23, 2024 Radha Berrios MDOther ProviderActiveStart: January 23, 2024 Khanh Deluca , DOOther ProviderActiveStart: January 23, 2024 Ronald Martinez MDOther ProviderActiveStart: January 23, 2024 Bernabe Cr DOOther ProviderActiveStart: January 23, 2024 Jerrell Gonsales [...] ProviderActiveStart: January 23, 2024 Vidya Hernandez , INFLATED PAD BUFFER-COther ProviderActiveStart: January 23, 2024 Valdo Sandra , [...] MDOther ProviderActiveStart: January 23, 2024 Bernabe Cr DOOther ProviderActiveStart: January 23, 2024 Jerrell Gonsales [...] ProviderActiveStart: January 23, 2024 Vidya Hernandez , INFLATED PAD BUFFER-COther ProviderActiveStart: January 23, 2024 Valdo Sandra , [...] Durham MDOther ProviderActiveStart: January 23, 2024 Tico Curtis Whitehead , DOOther ProviderActiveStart: January 23, 2024 [...] MD Primary Care Provider Active Indira Brown ProviderActiveMargarito Valentine MDOther Provider ActiveJanice Gonzalez MDOther ProviderActiveBernabe Cr , Attclara ProviderActive Team Status: Inactive Member Role Status Dates Stanley Emerson MD Primary Care Provider Active Indira Llanos Provider, Attending ProviderActive Team Status: Inactive Member Role Status Dates Stanley Emerson MD Primary Care Provider Active HUMA Garcia-CAttenjae ProviderActive Team Status: Inactive Member Role Status Dates Stanley Emerson MD Primary Care Provider Active Arbaella Bills ProviderActiveMarilyn Almonte Provider Active Team Status: Inactive Member Role Status Dates Stanley Emerson MD Primary Care Provider Active Start: August 18, 2023 End: August 18, 2023Arabella Llanos ProviderActiveStart: August 18, 2023 End: August 18, 2023 Team Status: Inactive Member Role Status Dates Stanley Emerson MD Primary Care Provider Active Start: September 18, 2023 End: September 18, 2023Arabella Llanos ProviderActiveStart: September 18, 2023 End: September 18, 2023 Team Status: Inactive Member Role Status Dates Stanley Emerson MD Primary Care Provider Active Start: February 04, 2024 End: February 03Arabella Lew ProviderActiveStart: February 04, 2024 End: February 04, 2024Team MemberRelationshipSpecialtyStart DateEnd Date Stanley Emerson MD [address] [address] PCP - Klludin97/23/22Team MemberRelationshipSpecialtyStart DateEnd Date Stanley Emerson MD [address] [place] [address] PCP - ACO Reach10/17/22 Stanley Emerson MD [address] [place] [address] [place] [address] PCP - GeneralFamily Medicine11/20/22 Dora Santiago LPN Licensed Practical NurseFamily Medicine12/22/23Team MemberRelationshipSpecialty Start DateEnd Date Stanley Emerson MD [address] [place] [address] (Fax) PCP - ACO Reach10/17/22 Stanley Emerson MD [address] [place] [phone] PCP - GeneralFaphaneuf [facility] Medicine11/20/22 Dora Santiago LPN [facility] Medicine12/22/23 Team Status: Inactive Member Role Status Dates Stanley Emreson MD Primary Care Provider Active Start: January 16, 2024 End: January 23, 2024W Dariusz Pruett DOAdmit Provider, Attending Provider ActiveStart: January 16, 2024 End: January 22lexnadine Randle RNOther ProviderActiveStart: January 16, 2024 End: January 22ebra Kim RNOther ProviderActiveStart: January 16, 2024 End: January [...] DOOther ProviderActiveStart: January 16, 2024 End: January 22ndgrecia Gonsales MDOther ProviderActiveStart: January 16, 2024 End: January 22shea Zambrano MDOther ProviderActiveStart: January 16, 2024 End: January 23, 2024Anand Mckenzie MDOther ProviderActiveStart: January 16, 2024 End: January 23, 2024Lynn Jennifer-Woo , APRNOther ProviderActiveStart: January 16, 2024 End: January 23, 2024Jagjit Swenson MDOther ProviderActiveStart: January 16, 2024 End: January 22assBe Mckeon ProviderActiveStart: January 16, 2024 End: January 23, 2024Taz Barnes MDOther ProviderActiveStart: January 16, 2024 End: January 23, 2024Rupa Tran MDOther ProviderActiveStart: January 16, 2024 End: January 23, 2024Michamilton Masterson DOOther ProviderActiveStart: January 16, 2024 End: January 23, 2024Be Perez ProviderActiveStart: January 16, 2024 End: January 23, 2024EarBe Anderson ProviderActiveStart: January 16, 2024 End: January 22ayah Hernandez NP-COther ProviderActiveStart: January 16, 2024 End: January 22dsusi Sandra APRNOther ProviderActiveStart: January 16, 2024 End: January 23, 2024Rob Almazan MDOther ProviderActiveStart: January 16, 2024 End: January 23, 2024Naechris Claros MDOther ProviderActiveStart: January 16, 2024 End: January 22Be Avila ProviderActiveStart: January 16, 2024 End: January 23, 2024Basilio Tam MDOther ProviderActiveStart: January 16, 2024 End: January 22jennifer Garcia MDOther ProviderActiveStart: January 16, 2024 End: January 23, 2024Lydia Rene DOOther ProviderActiveStart: January 16, 2024 End: January 23, 2024Lucas Dumas DOOther ProviderActiveStart: January 16, 2024 End: January 23, 2024Cortney Watkins APRNOther ProviderActiveStart: January 16, 2024 End: January 23, 2024Shawn J Lomax , DOOther ProviderActiveStart: January 16, 2024 [...] ProviderActiveStart: January 16, 2024 End: January 23, 2024Heaven Truong APRNOther ProviderActiveStart: January 16, 2024 End: January 22enedict Romina Yeboah Jr, DOOther ProviderActiveStart: January 16, 2024 End: January 22monse Hoyt MDOther ProviderActiveStart: January 16, 2024 End: January 23, 2024 Team Status: Active Member Role Status Dates Stanley Emerson MD Primary Care Provider Active Start: January 16, 2024 Maren Padilla ProviderActiveStart: January 16, 2024 Team Status: Active Member Role Status Dates Stanley Emerson MD Primary Care Provider Active Start: March 08, 2024 Phillip Hernandez ProviderActiveStart: March 08, 2024 Team Status: Inactive Member Role Status Dates Stanley Emerson MD Primary Care Provider Active Start: March 08, 2024 End: March 08Phillip Olmos ProviderActiveStart: March 08, 2024 End: March 08, 2024Team MemberRelationshipSpecialtyStart DateEnd Date Stanley Emerson MD [address] [place] [address] (Fax) PCP - ACO Reach10/17/22 Stanley Emerson MD [address] [place] [address] PCP - GeneralFamily Medicine11/20/22 Dora Santiago LPN Licensed [facility] NurseB[facility] Medicine12/22/23Team MemberRelationshipSpecialty Start DateEnd Date Stanley Emerson MD [address] [place] [address] (Fax) PCP - ACO [facility]10/17/22 Stanley Emerson MD [address] [place] [address] (Fax) PCP - GeneralFamily Medicine11/20/22 Dora Santiago LPN Licensed Practical NurseFamily Medicine12/22/23Team MemberRelationshipSpecialty Start DateEnd Date Stanley Emerson MD [address] [place] [address] (Fax) PCP - ACO [facility]10/17/22 Stanley Emerson MD [address] [place] [address] (Fax) PCP - GeneralFamily Medicine11/20/22 Dora Santiago LPN Licensed Practical NurseFamily Medicine12/22/23Team MemberRelationshipSpecialty Start DateEnd Date Stanley Emerson MD [address] [place] [address] (Fax) PCP - ACO [facility]10/17/22 Stanley Emerson MD [address] [place] [address] (Fax) PCP - GeneralFamily Medicine11/20/22 Dora Santiago LPN Licensed Practical NurseFamily Medicine12/22/23Team MemberRelationshipSpecialty Start DateEnd Date Stanley Emerson MD [address] [place] [address] (Fax) PCP - ACO [facility]10/17/22 Stanley Emerson MD [address] [place] [address] (Fax) PCP - GeneralFamily Medicine11/20/22 Dora Santiago LPN Licensed Practical NurseFamily Medicine12/22/23Team MemberRelationshipSpecialty Start DateEnd Date Stanley Emerson MD [address] [address] PCP - Jieimxe17/23/22Team MemberRelationshipSpecialtyStart DateEnd Date Stanley Emerson MD [address] [place] [address] (Fax) PCP - ACO Reach10/17/22 Stanley Emerson MD [address] [place] [address] (Fax) PCP - GeneralFamily Medicine11/20/22 Dora Santiago LPN Licensed Practical NurseFamily Medicine12/22/23Team MemberRelationshipSpecialty Start DateEnd Stanley Emerson MD [address] [place] [address] (Fax) PCP - ACO [facility]10/17/22 Stanley Emerson MD [address] [place] [address] (Fax) PCP - GeneralFamily Medicine11/20/22 Dora Santiago LPN Licensed Practical NurseFamily Medicine12/22/23Team MemberRelationshipSpecialty Start DateEnd Date Stanley Emerson MD [address] [address] PCP - Zbudezc61/23/22Team MemberRelationshipSpecialtyStart DateEnd Date Stanley Emerson MD [address] [place] [address] (Fax) PCP - ACO Reach10/17/22 Stanley Emerson MD [address] [place] [address] (Fax) PCP - GeneralFamily Medicine11/20/22 Dora Santiago LPN Licensed Practical NurseFamily Medicine12/22/23Team MemberRelationshipSpecialty Start DateEnd Date Stanley Emerson MD [address] [place] [address] (Fax) PCP - ACO [facility]10/17/22 Stanley Emerson MD [address] [place] [address] (Fax) PCP - GeneralFamily Medicine11/20/22 Dora Santiago LPN Licensed Practical NurseFamily Medicine12/22/23Team MemberRelationshipSpecialty Start DateEnd Date Stanley Emerson MD [address] [place] [address] (Fax) PCP - ACO [facility]10/17/22 Stanley Emerson MD [address] [place] [address] (Fax) PCP - GeneralFamily Medicine11/20/22 Dora Santiago [employer] Licensed Practical NurseFamily Medicine12/22/23Team MemberRelationshipSpecialty Start DateEnd Date Stanley Emerson MD [address] [place] [address] (Fax) PCP - ACO [facility]10/17/22 Stanley Emerson MD [address] [place] [address] (Fax) PCP - GeneralFamily Medicine11/20/22 Dora Santiago, JOSH Licensed Practical Nursemily Medicine12/22/23Team MemberRelationshipSpecialty Start DateEnd Date Stanley Emerson MD [address] [place] [address] PCP - Ewiaiip81/23/22Team MemberRelationshipSpecialtyStart DateEnd Date Stanley Emerson MD [address] [place] [address] PCP - Kgpppeo49/23/22 Team Status: Inactive Member Role Status Dates Stanley Emerson MD Primary Care Provider Active Start: May 21, 2024 End: May 21, 2024Hasalvador Al MDAttclara ProviderActiveStart: May 21, 2024 End: May 21, 2024Team MemberRelationshipSpecialtyStart DateEnd Date Stanley Emerson MD [address] [place] [address] (Fax) PCP - ACO [facility]10/17/22 Stanley Emerson MD [address] [place] [address] (Fax) PCP - Generalmily Medicine11/20/22 Joi Zhang, JOSH 08/26/24Team MemberRelationshipSpecialtyStart DateEnd Date Stanley Emerson MD [address] [place] [address] (Fax) PCP - ACO [facility]10/17/22 tSanley Emerson MD [address] [place] [address] (Fax) PCP - Generalmily Medicine11/20/22 Dora Santiago LPN Licensed Practical Nursemily Medicine Joi Zhang LPN 08/26/24Team MemberRelationshipSpecialtyStart DateEnd Date Stanley Emerson MD [facility] [address] [place] [id number] PCP - Gxnssgm37/23/22Team MemberRelationshipSpecialtyStart DateEnd Date Stanley Emerson MD [address] [place] [address] (Fax) PCP - ACO Reach10/17/22 Stanley Emerson MD [address] [place] [address] (Fax) PCP - GeneralFamily Medicine11/20/22 Joi Zhang LPN 08/26/24Team MemberRelationshipSpecialtyStart DateEnd Date Stanley Emerson MD [address] [place] [address] (Fax) PCP - ACO Reach10/17/22 Stanley Emerson MD [address] [place] [address] (Fax) PCP - Generalmily Medicine11/20/22 Joi Zhang LPN 08/26/24Team MemberRelationshipSpecialtyStart DateEnd Date Stanley Emerson MD [address] [place] [address] (Fax) PCP - ACO [facility]10/17/22 Stanley Emerson MD [address] [place] [address] (Fax) PCP - GeneralFamily Medicine11/20/22 Joi Zhang, JOSH 08/26/24Team MemberRelationshipSpecialtyStart DateEnd Date Stanley Emerson MD [address] [place] [address] (Fax) PCP - General10/02/24Team MemberRelationshipSpecialtyStart DateEnd Date Stanley Emerson MD [address] [place] [address] (Fax) PCP - General10/02/24Team MemberRelationshipSpecialtyStart DateEnd Date Stanley Emerson MD [address] [place] [phone] PCP - Yrxgyms13/23/22 Ruby Montana MD [address] [facility] [address], [facility] [address] [place] [address] CardiologistElectrophysiology10/04/24Team MemberRelationshipSpecialtyStart Date End Date Stanley Emerson MD [address] [place] [address] (Fax) PCP - ACO Reach10/17/22 Stanley Emerson MD [address] [place] [address] (Fax) PCP - GeneralFamily Medicine11/20/22 Joi Zhang, [employer] 08/26/24Team MemberRelationshipSpecialtyStart DateEnd Date Stanley Emerson MD [address] [place] [address] (Fax) PCP - ACO Reach10/17/22 Stanley Emerson MD [address] [place] [address] (Fax) PCP - GeneralFamily Medicine11/20/22 Joi Zhang LPN 08/26/24Team MemberRelationshipSpecialtyStart DateEnd Date Stanley Emerson MD [address] [place] [address] (Fax) PCP - ACO Reach10/17/22 Stanley Emerson MD [address] [place] [address] (Fax) PCP - GeneralFamily Medicine11/20/22 Joi Zhang LPN [address] [place] [address] 08/26/24Team MemberRelationshipSpecialtyStart DateEnd Date Stanley Emerson MD [address] [place] [address] (Fax) PCP - ACO Reach10/17/22 Stanley Emerson MD [address] [place] [address] (Fax) PCP - GeneralFamily Medicine11/20/22 Joi Zhang LPN [address] [place] [address] 08/26/24Team MemberRelationshipSpecialtyStart DateEnd Date Stanley Emerson MD [address] [place] [address] (Fax) PCP - ACO [facility]10/17/22 Stanley Emerson MD [address] [place] [address] (Fax) PCP - GeneralFamily Medicine11/20/22 Joi Zhang LPN [address] [place] [address] 08/26/24Team MemberRelationshipSpecialtyStart DateEnd Date Stanley Emerson MD [address] [place] [address] (Fax) PCP - ACO [facility]10/17/22 Stanley Emerson MD [address] [place] [address] (Fax) PCP - GeneralFamily Medicine11/20/22 Dora Santiago LPN [address] [place] [address] [facility]ractical [facility] Joi Zhang LPN [address] [place] [address] 08/26/24Team MemberRelationshipSpecialtyStart DateEnd Stanley Emerson MD [address] [place] [address] (Fax) PCP - ACO [facility]10/17/22 Stanley Emerson MD [address] [place] [address] (Fax) PCP - GeneralFamily Medicine11/20/22 Dora Santiago LPN [address] [place] [address] Licensed Practical NurseFamily Medicine Joi Zhang LPN [address] [place] [address] 08/26/24Team MemberRelationshipSpecialtyStart DateEnd Date Stanley Emerson MD [address] [place] [address] (Fax) PCP - ACO Reach10/17/22 Stanley Emerson MD [address] [place] [address] PCP - GeneralFamily Medicine11/20/22 Dora Santiago LPN [address] [place] [address] Licensed Practical NurseFamily Medicine Christina Goddard LPN Licensed Practical NurseFamily Medicine/06/18 Joi Zhang LPN [address] [facility] [address] [place] [address] 08/26/24 REASON FOR VISIT (unrecogniz ed section and content) ReasonCommentsekg visitSpecialtyDiagnoses / ProceduresReferred By Contact Referred To Contact Diagnoses Paroxysmal atrial fibrillation (Multi) Procedures ECG 12 Lead Teo Al MD [address] [facility] [address] [place] [address] Referral IDStatusReason[facility] DateExpiration DateVisits RequestedVisits [id number]/17/20249/210173MjptkmQeykqtxkUOSMorifuUmuvnkcg [facility] [place] pecialtyDiagnoses / ProceduresReferred By Contact Referred To Contact Diagnoses Paroxysmal atrial fibrillation (Multi) Procedures ECG 12 Lead Al, Bruce M, MD [address] [place] [phone] Referral IDStatusReasonStart DateExpiration DateVisits RequestedVisits [id number]/17/20249/17/745539RgacqmAvyjaqjzRoz RefillReason CommentsFollow-lk9dCfzhxvodiDzwibzfpf / ProceduresReferred By ContactReferred To ContactCardiology Diagnoses Paroxysmal atrial fibrillation (Multi) Procedures Follow Up In Cardiology Teo Al MD [address] [place] [phone] Phone: tel: fax: Teo Al MD [address] [place], [place] [address] Phone: tel: fax: Referral IDStatusReasonStart DateExpiration DateVisits RequestedVisits [id number]/17/20249/17/091468DibrxfInvyowmwOuhqap Exam SpecialtyDiagnoses / ProceduresReferred By ContactReferred To ContactCardiology Diagnoses Cardiomyopathy, ischemic Procedures Follow Up In Cardiology Teo Al MD [address] [place], [place] [phone] Phone: tel: fax: Teo Al MD [address] [place], [place] [address] Phone: tel: fax: Referral IDStatusReasonStart DateExpiration DateVisits RequestedVisits [id number]/27/202412/27/613921ErnesqNxsxtuxqZxqsse-zg6 month follow up abnormal testingSpecialtyDiagnoses / ProceduresReferred By Contact Referred To Contact Diagnoses Paroxysmal atrial fibrillation (Multi) Procedures ECG 12 Lead Teo Al MD [address] [place] [address] Phone: tel: fax: Referral [facility]Status[facility] DateExpiration DateVisits RequestedVisits [id number]/18/20254/18/521476QznwdkEsogopcuUvjwauwhqvfqda ReasonCommentsNew Patient VisitPatient is present to establish care . Patient was referred by cardiology for Paroxysmal atrial fibrillation.SpecialtyDiagnoses / ProceduresReferred By ContactReferred To ContactCardiology Diagnoses Cardiomyopathy, ischemic Teo Al MD [address] [facility] [address] [place] [address] Phone: tel: fax: Ruby Montana MD [address] [facility] [address] [facility] [place] [address] Phone: tel: fax: Referral IDStatus[facility] DateExpiration DateVisits RequestedVisits [id number] Specialty Services Required Goals (unrecognized section and content) Goals may [...] 12 hours for 9 doses 9 tablet Scheduled Active and Recently Administ ered Medications (unrecognized section and content) Medication Order/ amiodarone (CORDARONE) tablet 200 mg 200 mg, Oral, DAILY, First dose on Fri10/02/24 at 1130, Until Discontinued * 0754 (Given - Provider: Mar Gonzalez RN) * 0839 (Given - Provider: Jessy Wayne, ROCIO) * 0835 (Given - Provider: Coco Mirza RN) atorvastatin (LIPITOR) tablet 80 mg 80 mg, Oral, NIGHTLY, First dose on Fri10/02/24 at 2100, Until Discontinued * 2038 (Given - Provider: Gi Berrios, ROCIO) * 1939 (Given - Provider: Milton Kaiser RN) * 2099 (Due) azithromycin (ZITHROMAX) 500 mg in sodium chloride 0.9 % 250 mL IVPB (Jdli3Cdx) (COMPLETED) 500 mg, IntraVENous, EVERY 24 HOURS, 2 doses, First dose on Fri10/02/24 at 1200, Last dose on Fri10/03/24 at 1200, Antimicrobial Indications: Pneumonia (CAP), CAP duration of therapy: 3 days, Use 20mm (Blue) Fjng1Hhd Adapter Preparation instructions: Attach medication vial to one 20mm (Blue) Urxw4Bur adapter. James fluid bag with adapter, mix, [...] RN) * 1221 (Given - Provider: Jessy Wayne, ROCIO) [...] (Given - Provider: Jessy Wayne RN) * 0835 (Given - Provider: Coco Mirza RN) ferrous sulfate (IRON 325) tablet 325 mg (CANCELED) 325 mg, Oral, 2 TIMES DAILY WITH MEALS, First dose on 10/02/24 at 1130, Until Discontinued * 0754 (Given - Provider: Mar Gonzalez RN) * 1716 (Given - Provider: Mar Gonzalez RN) * 0839 (Given - Provider: Jessy Wayne RN) * 1639 (Given - Provider: Jessy Wayne, ROCIO) * 0836 (Given - Provider: Coco Mirza RN) ferrous sulfate (IRON 325) tablet 325 mg 325 mg, Oral, DAILY WITH BREAKFAST, First dose (after last modification) on Fri10/06/24 at 0800, Until Discontinued furosemide (LASIX) tablet 40 mg 40 mg, Oral, DAILY, First dose on Fri10/03/24 at 0900, Until Discontinued * 0754 (Given [...] RN) * 2039 (Given - Provider: Gi Berrios, ROCIO) * 0841 (Given - Provider: Jessy Wayne RN) * 1940 (Given - Provider: Milton Kaiser RN) * 0843 (Given - Provider: Coco Mirza, ROCIO) * 2099 (Due) metoprolol succinate (TOPROL XL) extended release [...] Discontinued * 2038 (Given - Provider: Gi Berrios RN) * 1939 (Given - Provider: Milton Kaiser, ROCIO) * 2099 (Due) rivastigmine (EXELON) 4.6 MG/24HR 1 patch 1 patch, TransDERmal, Administer over 24 Hours, DAILY, First dose on 10/04/24 at 1615 * 1639 (Patch Applied - Provider: Jessy Wayne RN) * 0843 (Patch Removed - Provider: Coco Mirza RN) * 0844 (Patch Applied - Provider: Coco Mirza, ROCIO) sodium chloride flush 0.9 % injection 5-40 [...] (Given - Provider: Jessy Wayne RN) * 1939 (Given - Provider: Milton Kaiser, [...] handling/disposal * 1716 (Given - Provider: Mar Gonzalez [...] Sleep * 1940 (Given - Provider: Milton Kaiser RN) [...] Sat 5 at 1050, Until Discontinued, Nausea, Vomiting, Administer [...] 40 mEq, Oral, PRN, Starting on Sat 525 at 1050, Until Discontinued, Per Potassium Replacement [...] BE BASED ON THE PRIMARY CLINICAL RECORDS. [employer] provides no warranty or guarantee of the accuracy or completeness of information in this document.
--- NOTE | 2025-03-22 11:50 | XR_ITS ---
The [address] [address] Patient Name: ALEX GRAJEDA MRN: [id number] date: 1945 Sex: M Assigned Patient Location: [facility] Current Patient Location: [facility] Accession/Order Number: [id number] Exam Date: 03/22/2025 11:45 Report Date: 03/22/2025 12:26 At the request of: MAGDY AL Procedure: XR chest 2V PA AND LATERAL CHEST: CLINICAL HISTORY: Paroxysmal Atrial Fibrillation, High Risk Medication COMPARISON: 10/01/2024 There is elevation of the left hemidiaphragm with underlying air-filled viscus. Minor scarring or atelectasis is present at the right base. There is no developing consolidation, effusion or pneumothorax. The cardiac, hilar and mediastinal silhouettes are similar including aortic ectasia. There is no vascular congestion. The visualized bony structures are osteopenic. Mild endplate spurring is seen. XR/XR chest 2V IMPRESSION: NO ACUTE CARDIOPULMONARY ABNORMALITY. Impression dictated by: Amy Person M.D. 03/22/2025 12:26 PM Dictation Location: [place] [address] Electronically authenticated by: [id number] Y Date: 03/22/2025 12:26
== END 2025-03-22 11:17 | disposition home or self-care (01) ==
LOC: RAD 11:19
PROVIDERS: PCP Family Medicine; Visit Provider Internal Medicine Cardiovascular Disease
DX: I48.0 Paroxysmal atrial fibrillation (principal); Z79.899 Other long term (current) drug therapy
CPT/HCPCS: 71046

== ENCOUNTER 2025-03-24 13:07 | Outpatient (OUT) | payer MEDICARE, OTHER, SELFPAY ==
--- OUTSIDE RECORDS SUMMARY | 2019-12-10 07:15 | XMS_ITS | Continuity of Care Document ---
Author Organization [facility] Address [address] [place] [phone] Phone Care Team Providers Care Electrical Assembler Name Role Phone Alberto Farrell Unavailable Unavailable Procedures Procedure Date Covid Testing [facility] Results Test Name Date and Time Measure Units Reference Range Abnormal Flag Status Comments Panel Description: SARS-CoV-2, KARI Final SARS-CoV- 2, KARI 020 18:04:00 Not Detected Not Detected Final This test was developed and its performance characteristics determinedby [employer]. This test has not been FDA cleared [...] anegative (not detected) result in this assay.Performed by:[facility] ([facility]) Panel Description: SARS-CoV-2 Antibody, IgM [facility] SARS-CoV- 2 Antibody, IgM 020 16:11:00 Negative Negative Final This sample do es not contain detectable SARS-CoV-2 IgM antibodies.This negative result does not rule out SARS-CoV-2 infection.Correlation with epidemiologic risk factors and other clinical andlaboratory findings is recommended. Serologic results should not beused as the sole basis to diagnose or exclude recent [id number].P erformed by:[facility] ([employer]) Panel Description: SARS-CoV-2 Antibody, IgG Fin al SARS-CoV- 2 Antibody, IgG 020 07:12:00 Negative Negative Final This sample do es not contain detectable SARS-CoV-2 IgG antibodies.This negative result does not rule out SARS-CoV-2 infection.Correlation with epidemiologic risk factors and other clinical andlaboratory findings is recommended. Serologic results should not beused as the sole basis to diagnose or exclude recent [id number].T his assay was performed using the [employer] SARS-CoV-2 IgG assay.Performed by:[facility] ([employer]) Advance Directives Directive Yes / No Effective Date File Name No Information Encounters Encounter Description Practice Location Reason(s) For Visit Diagnoses Date Provider Providers Copied on Encounter [facility], [address] [place] [address], [id number], [place] tel:[phone] COVID ECHD Encounter for screening for other viral diseases Visci DO Alberto. [address] [place] [address], [id number], [place]. tel:[phone] Family History Family Member Type Diagnosis Age At Onset No Information Payers Payer name Insurance type Covered alliance party ID Authoriza tion(s) Medicare [facility] [id number] Social History Type Description Quantity Date Captured [...]
--- OUTSIDE RECORDS SUMMARY | 2025-03-24 13:09 | XMS_ITS | Encounter Summary ---
Author Organization [facility] Address [address] [place] [address] Care Team Providers Care Airline Pilot/First Officer Name Role Phone Stanley Toledo MD Unavailable [phone] Stanley Toledo MD Primary Care Provider + [phone] Joi Zhang LPN Unavailable Encounter Details DateTypeDepartmentCare Team (Latest Contact Info)Nzoaldmqqfx61/21/2025Orders Only [facility] [address] [address] [place], [place] Social History Tobacco UseTypesPacks/DayYears UsedDateSmoking Tobacco: FormerCigarettes0.561.2 Started: 12/31/1963Smokeless Tobacco: NeverAlcohol UseStandard Drinks/Week CommentsNever0 (1 standard drink = 0.6 oz pure alcohol)B1300 Health Literacy AnswerDate RecordedHow often do you need to have someone help you when you read instructions, pamphlets, or other written material from your doctor or pharmacy? Uyrddw4912/30/2024Humiliation, Afraid, Rape, and Kick questionnaireAnswerDate RecordedWithin the [...] times a week12/31/2023How often do you attend pentecostal or religion services?Never12/31/2023o you belong to any clubs or organizations such as pentecostal groups, unions, fraIntegral Vision or athletic groups, or school groups?No12/31/2023How often do you attend meetings of the clubs or organizations you belong to?Never12/31/2023re you , , , , never , or living with a partner?Bhztkjy5712/31/2023 AUDIT-CAnswerDate RecordedQ1: How often do you have [...] at all 12/31/2023HQ-2AnswerDate RecordedPatient Health Questionnaire-2 Score0 05/13/2024[facility] - Occupational Stress QuestionnaireAnswerDate RecordedDo you feel stress - tense, restless, nervous, or anxious, or unable to sleep at night because yourmind is troubled all the time - these days?Only a jhqouy0312/30/2024Exercise Vital SignAnswerDate Recorded On average, how many [...] or living in a long term (including now)?No12/31/2023Sex and Gender InformationValueDate RecordedSex Assigned at BirthNot on fileLegal SexMale 08/07/2022 7:16 PM EDTGender IdentityNot on fileSexual OrientationNot on file documented as of this encounter Plan of Treatment DateTypeDepartmentCare Team (Latest Contact Info)Wlgonpqrsmr96/16/2025 2:00 PM ESTOffice Visit [facility] [address] [place] [address] Stanley Toledo MD [address] [place] [address] documented as of this encounter Visit Diagnoses Not on filedocumented in this encounter Additional Health Concerns AssessmentNoted TimePHQ-9 Depression Total Score: 2:00 PM ESTA fall risk assessment has been completed for the kirrdwu7212/31/2023 8:54 AM EDT documented as of this encounter Care Teams Team MemberRelationshipSpecialtyStart DateEnd Date Stanley Toledo MD [address] [place] [address] PCP - ACO Reach10/17/22 Stanley Toledo MD [address] [place] [address] PCP - GeneralFamily Medicine11/20/22 Joi Zhang LPN [address] [place] [address] 08/26/24documented as of this encounter
--- OUTSIDE RECORDS SUMMARY | 2025-03-24 13:09 | XMS_ITS | Encounter Summary ---
Author Organization [facility] Address [address] [place] [address] Care Team Providers Care Color Tester Name Role Phone Stanley Toledo MD Unavailable [phone] Stanley Toledo MD Primary Care Provider + [phone] Joi Zhang LPN Unavailable Encounter Details DateTypeDepartmentCare Team (Latest Contact Info)Ftvxcfmkpdc99/24/2025linisync Result Encounter [facility] External Department Unsolicited Provider, Generic External Data Social History Tobacco UseTypesPacks/DayYears UsedDateSmoking Tobacco: FormerCigarettes0.561.2 Started: 12/31/1963Smokeless Tobacco: NeverAlcohol UseStandard Drinks/Week CommentsNever0 (1 standard drink = 0.6 oz pure alcohol)B1300 Health Literacy AnswerDate RecordedHow often do you need to have someone help you when you read instructions, pamphlets, or other written material from your doctor or pharmacy? Fsguzc7112/30/2024Humiliation, Afraid, Rape, and Kick questionnaireAnswerDate RecordedWithin the [...] times a week12/31/2023How often do you attend oriental orthodox or latter day services?Never12/31/2023o you belong to any clubs or organizations such as oriental orthodox groups, unions, fraternal or athletic groups, or school groups?No12/31/2023How often do you attend meetings of the clubs or organizations you belong to?Never12/31/2023re you , , , , never , or living with a partner?Zgtkwsz1812/31/2023 AUDIT-CAnswerDate RecordedQ1: How often do you have [...] at all 12/31/2023HQ-2AnswerDate RecordedPatient Health Questionnaire-2 Score0 05/13/2024[facility] [place] [facility] - Occupational Stress QuestionnaireAnswerDate RecordedDo you feel stress - tense, restless, nervous, or anxious, or unable to sleep at night because yourmind is troubled all the time - these days?Only a stkjtb9112/30/2024Exercise Vital SignAnswerDate Recorded On average, how many [...] or living in a skilled nursing (including now)?No12/31/2023Sex and Gender InformationValueDate RecordedSex Assigned at BirthNot on fileLegal SexMale 08/07/2022 7:16 PM EDTGender IdentityNot on fileSexual OrientationNot on file documented as of this encounter Plan of Treatment DateTypeDepartmentCare Team (Latest Contact Info)Uqbxynoztgo17/16/2025 2:00 PM ESTOffice Visit [facility] [place] [address] [facility] [address] [facility] 100 [place] [address] Stanley Toledo MD 112 [facility] [address] [place] [address] documented as of this encounter Procedures Procedure NamePriorityDate/TimeAssociated DiagnosisCommentsCCF ASTRoutine 03/18/2025 8:16 AM EDT ALL THYROID STIM LHRSNNQAkiglns27/24/2025 8:16 AM EDT ALL LIPID PROFILE (FASTING)Uudbhxv5803/18/2025 8:16 AM EDT ALL BASIC METABOLIC VCLBRSnwqrbq64/24/2025 8:16 AM EDT documented in this encounter Results * (ABNORMAL) ALL THYROID STIM HORMONE (03/18/2025 8:16 AM EDT)ComponentValueRef RangeTest MethodAnalysis TimePerformed AtPathologist SignatureTHYROID STIMULATING AUWQXJK18.644(H)0.358 - 3.740 uIU/mLTBHSpecimen (Source)Anatomical Location / LateralityCollection Method / VolumeCollection TimeReceived Time 03/18/2025 8:16 AM EDT1 8:17 AM EDT Narrative CLINISYNC - 03/18/2025 10:29 AM EDT Authorizing ProviderResult TypeResult StatusGeneric External Data Provider CLINISYNCFinal ResultPerforming OrganizationAddressCity/State/ZIP CodePhone Number [facility] * (ABNORMAL) ALL LIPID PROFILE (FASTING) (03/18/2025 8:16 AM EDT)ComponentValue Ref RangeTest MethodAnalysis TimePerformed AtPathologist Signature HFWNRIPUPZFYJ57<=150 mg/jDRBEXVFOKCOPCDF62<=200 mg/dLTBHHDL IZBQJGGJUEG97(L)40 - 60 mg/dLTBHComment: > or =60 mg/dl - LOW CARDIOVASCULAR RISK <40 mg/dl - HIGH CARDIOVASCULAR RISK LDL CHOLESTEROL BGNTFLKRVK33.0mg/dLTBHComment: <100 mg/dl OPTIMAL 100-129 mg/dl NEAR OR ABOVE OPTIMAL 130-159 mg/dl BORDERLINE HIGH 160-189 mg/dl HIGH >190 mg/dl VERY HIGH VLDL MZDNNVTVBYK47.8mg/dLTBHCHOL HDL RATIO2.2TBHComment: 3.3 - 4.4 ?? LOW RISK 4.4 - 7.1 ?? AVERAGE RISK 7.1 - 11.0 ??MODERATE RISK >11.0 HIGH RISK Specimen (Source)Anatomical Location / LateralityCollection Method / Volume Collection TimeReceived Time03/18/2025 8:16 AM EDT1 8:17 AM EDT Narrative CLINISYNC - 03/18/2025 10:29 AM EDT Authorizing ProviderResult TypeResult StatusGeneric External Data Provider CLINISYNCFinal ResultPerforming OrganizationAddressty/State/ZIP CodePhone Number [facility] * [facility] AST (03/18/2025 8:16 AM EDT)ComponentValueRef RangeTest MethodAnalysis TimePerformed AtPathologist SignatureASPARTATE AMINO KPUOTHZYVRS5077 - 37 U/L TBHSpecimen (Source)Anatomical Location / LateralityCollection Method / Volume Collection TimeReceived Time03/18/2025 8:16 AM EDT1 8:17 AM EDT Narrative CLINISYNC - 03/18/2025 10:29 AM EDT Authorizing ProviderResult TypeResult StatusGeneric External Data Provider CLINISYNCFinal ResultPerforming OrganizationAddressCity/State/ZIP CodePhone Number [facility]OM[facility] * (ABNORMAL) ALL BASIC METABOLIC PANEL (03/18/2025 8:16 AM EDT)ComponentValueRef RangeTest MethodAnalysis TimePerformed AtPathologist EmgsnlmbaGYFZDQ854(H)136 - 145 mmol/LTBHPOTASSIUM3.93.5 - 5.1 mmol/WNVOGDDFZDDK21594 - 107 mmol/LTBH CARBON VOZKPAS32.521.0 - 32.0 mmol/LTBHANION GAP16.6AMGGNGGMYM5060 - 106 mg/dL TBHBLOOD UREA LYSOLTJO13.0(H)7.0 - 18.0 mg/dLTBHCREATININE1.80(H)0.70 - 1.30 mg/dLTBHTBH EGFR-AF ALQINLVE34(L)>=60 mL/min/1.73m 2TBHTBH EGFR-NON AF XKMWLSNI92(L)>=60 mL/min/1.73m 2TBHBUN CREATININE RATIO14.5RQTOITWIWQ5.88.5 - 10.1 mg/dLTBHSpecimen (Source)Anatomical Location / LateralityCollection [...] risk assessment has been completed for the mcaaaia1812/31/2023 8:54 AM EDT documented as of this encounter Care Teams Team MemberRelationshipSpecialtyStart DateEnd Date Stanley Toledo MD [address] [place] [address] PCP - ACO [facility]10/17/22 Stanley Toledo MD [address] [place] [address] [facility] - [facility]/22 Joi Zhang LPN [address] [place] [address] 08/26/24documented as of this encounter
--- OUTSIDE RECORDS SUMMARY | 2025-03-24 13:09 | XMS_ITS | Encounter Summary ---
Author Organization [facility] Address [address] [place] [address] Phone Care Team Providers Care Plc Controls Engineer Name Role Phone Stanley Toledo MD Primary Care Provider Ruby Vickers MD Unavailable Encounter Details DateTypeDepartmentCare Team (Latest Contact Info)Sxkepevwcri43/23/2025Telephone [address] [address] Elaine De Luna RN Social History Tobacco UseTypesPacks/DayYears UsedDateSmoking Tobacco: FormerCigarettes Smokeless Tobacco: NeverAlcohol UseStandard Drinks/WeekCommentsNever0 (1 standard drink = 0.6 oz pure alcohol)Sex and Gender InformationValueDate RecordedSex Assigned at BirthNot on fileLegal RcqJwez03/29/2022 5:17 PM EST Gender IdentityNot on fileSexual OrientationNot on filedocumented as of this encounter Miscellaneous Notes * Telephone Encounter - Elaine De Luna RN - 03/17/2025 10:19 AM EDT phones inquiring if we have received the results from PFT and CXR. Will obtain records from [facility] for chest xray. She is wanting to make sure everything is in chart for upcoming visit. documented in this encounter Plan of Treatment DateTypeDepartmentCare Team (Latest Contact Info)Izjdtswnuaj75/04/2025 11:00 AM ESTOffice Visit [address] [phone] Teo Stokes MD [address], [address] [place], [place] [id number] documented as of this encounter Visit Diagnoses Not on filedocumented in this encounter Additional Health Concerns AssessmentNoted TimeA fall risk assessment has been completed for the patient 09/10/2024 9:37 AM EDTdocumented as of this encounter Care Teams Team MemberRelationshipSpecialtyStart DateEnd Date Stanley Toledo MD [address] [place] [phone] PCP - Izfpegm45/23/22 Ruby Vickers MD [address] [facility], [address] [place] [address] CardiologistElectrophysiology10/04/24documented as of this encounter
--- OUTSIDE RECORDS SUMMARY | 2025-03-24 13:09 | XMS_ITS | Encounter Summary ---
Author Organization [facility] Address [address] [place] [address] Care Team Providers Care Dialysis Rn Name Role Phone Stanley Toledo MD Unavailable [phone] Stanley Toledo MD Primary Care Provider + [phone] Joi Zhang LPN Unavailable Encounter Details DateTypeDepartmentCare Team (Latest Contact Info)Covaxeucdiw43/27/2025Patient Outreach [facility] [address] [address] Joi Zhang LPN [address] [place] [address] Social History Tobacco UseTypesPacks/DayYears UsedDateSmoking Tobacco: FormerCigarettes0.561.2 Started: 12/31/1963Smokeless Tobacco: NeverAlcohol UseStandard Drinks/Week CommentsNever0 (1 standard drink = 0.6 oz pure alcohol)B1300 Health Literacy AnswerDate RecordedHow often do you need to have someone help you when you read instructions, pamphlets, or other written material from your doctor or pharmacy? Xkddll2112/30/2024Humiliation, Afraid, Rape, and Kick questionnaireAnswerDate RecordedWithin the [...] times a week12/31/2023How often do you attend evangelical or yazidism services?Never12/31/2023o you belong to any clubs or organizations such as evangelical groups, unions, fraternal or athletic groups, or school groups?No12/31/2023How often do you attend meetings of the clubs or organizations you belong to?Never12/31/2023re you , , , , never , or living with a partner?Ijcefsy1312/31/2023 AUDIT-CAnswerDate RecordedQ1: How often do you have [...] at all 12/31/2023HQ-2AnswerDate RecordedPatient Health Questionnaire-2 Score0 05/13/2024[facility] [place] [facility] - Occupational Stress QuestionnaireAnswerDate RecordedDo you feel stress - tense, restless, nervous, or anxious, or unable to sleep at night because yourmind is troubled all the time - these days?Only a xfrjjg3112/30/2024Exercise Vital SignAnswerDate Recorded On average, how many [...] homeless or living in a longterm (including now)?No12/31/2023Sex and Gender InformationValueDate RecordedSex Assigned [...] is still [facility] and that they are nolonger doing [...] it is not real now. Pt has Increment Manager appt 03/29. She shares that pt had [...] is no longer doing cardiac rehab at [place] but he is using elliptical at home [...] daily.B/P's have been good one reading from director of strategic sales office was 108/70. At home 115/79. Pts [...] Plan of Treatment DateTypeDepartmentCare Team (Latest Contact Info)Lpkskgfblmw47/16/2025 2:00 PM ESTOffice Visit [facility] [address] [facility] 100 [place] [address] Stanley Toledo MD 112 [facility] 100 [place] [address] documented as of this encounter Visit Diagnoses Diagnosis Stage 3b chronic kidney disease ([facility]) 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 disturbance, psychotic disturbance, mood disturbance, or anxiety ([facility]) documented in this encounter Additional Health Concerns AssessmentNoted TimePHQ-9 Depression Total Score: 2:00 PM ESTA fall risk assessment has been completed for the nkzmgbm1912/31/2023 8:54 AM EDT documented as of this encounter Care Teams Team MemberRelationshipSpecialtyStart DateEnd Date Stanley Toledo MD [address] [place] [address] PCP - [facility]CO [facility]10/17/22 Stanley Toledo MD [address] [place] [address] PCP - GeneralFamily Medicine11/20/22 Joi Zhang LPN [address] [place] [address] 08/26/24documented as of this encounter
--- OUTSIDE RECORDS SUMMARY | 2025-03-24 13:09 | XMS_ITS | Clinical Summary ---
Author Organization [facility] Address [address] [place] [address] Phone Care Team Providers Care Senior Accounting Analyst Name Role Phone Stanley Toledo MD Primary Care Provider + [phone] Ruby Vickers MD Unavailable Allergies No known [...] tablet daily in the evening. [facility]. 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 of mechoopda heart without angina pectorisTake 1 tablet (75 [...] 25.0-25.9, adult10/08/2024 Encounter for medication review and pgopqmgfoc89/16/2025Encounter to discuss test scjphzu6610/08/2024Encounter to discuss treatment bfolzvd7910/08/2024Encounter to establish care with new /16/2025Ventricular ectopy/arrhythmia, pre- operative cardiovascular exam10/08/2024S/P PTCA (percutaneous transluminal coronary angioplasty)02/10/2024oronary artery disease involving mechoopda coronary artery of mechoopda heart without angina hzykbqlg32/17/2024aroxysmal atrial uisyzlyckpmf70/17/2024Former cweuhm3302/10/2024High risk medication use02/10/2024 STEMI (ST elevation myocardial infarction)02/10/2024ardiomyopathy, ischemic 02/10/20243894Emltwofzhqae05/18/2024Essential rtkbieilwepd58/18/2024Stage 3a chronic kidney akmnhzz0605/12/2023bdominal aortic aneurysm (AAA) greater than 5.5 cm in diameter in male11/11/2022Urinary bladder zaatfomu39/19/2023Transient cerebral ischemic cokuwh7105/16/2022 Resolved Problems ProblemNoted DateDiagnosed DateResolved DateBMI 26.0-26.9,adult02/10/2024 10/08/2024 Encounters DateTypeDepartmentCare UpmyEflxtsjuspw44/28/2025Scanned [facility] [address] [place] [address] Scanning, Generic Provider 03/18/2025Scanned [facility] [address] [place] [address] Scanning, Generic Provider 03/17/2025Telephone [place] [address] [facility] [address] [place] [address] Elaine De Luna RN 02/28/2025Scanned [facility] [address] [place] [address] Scanning, Generic Provider 02/02/2025Scanned [facility] [address] [place] [address] Scanning, Generic Provider 01/28/2025[facility] [address] [place] [address] Teo Stokes MD Fqwenzgwara84/05/2025[facility] [address] [place] [address] Constantin Pruett, Hyperthyroidism (Primary Dx)01/02/2025[place] [address] [place] [address] Teo Stokes MD 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 of mechoopda heart without angina pectorisfrom Last 3 Months Immunizations ImmunizationAdministration DatesNext DueFlu vaccine (IIV4), preservative free *Check age/dose*02/22/2021Flu vaccine, quadrivalent, high-dose, preservative free, age 65y+ (FLUZONE)03/06/2022Flu vaccine, quadrivalent, recombinant, preservative free, adult (FLUBLOK)02/22/2020Flu vaccine, trivalent, preservative free, HIGH-DOSE, age 65y+ (Fluzone)05/20/2022,02/14/2021Influenza, Seasonal, Quadrivalent, Bimgnwgetl76/01/2023Influenza, seasonal, hguyvygcig64/22/2022 Pneumococcal polysaccharide vaccine, 23-valent, age 2 years and older (PNEUMOVAX 23)04/23/2021 Family History Medical HistoryRelationNameCommentsBrain cancerFatherbowel obstructionMother RelationNameStatusCommentsFatherMother Social History Tobacco UseTypesPacks/DayYears UsedDateSmoking Tobacco: FormerCigarettes Smokeless Tobacco: Never Tobacco Cessation:Counseling Given: Not Answered Alcohol UseStandard Drinks/WeekCommentsNever0 (1 standard drink = 0.6 oz pure alcohol)Sex and Gender InformationValueDate RecordedSex Assigned at BirthNot on fileLegal XuvSadq44/29/2022 5:17 PM ESTGender IdentityNot on fileSexual OrientationNot on file Last Filed Vital Signs Vital SignReadingTime TakenCommentsBlood Scrzcrsx97/58010/08/2024 2:43 PM EDT Xmnrm854110/08/2024 2:43 PM EDTTemperature--Respiratory Rate--Oxygen Saturation-- Inhaled Oxygen Concentration--Sefson67.7 kg (200 lb)10/08/2024 2:43 PM EDTHeight 188 cm (6' 2 )10/08/2024 2:43 PM EDTBody Mass Index25.68010/08/2024 2:43 PM EDT Plan of Treatment DateTypeDepartmentCare Team (Latest Contact Info)Ywqvlxniglt64/04/2025 11:00 AM ESTOffice Visit [facility] [address] [facility] [address] [place] [address] Teo Stokes MD [address] [facility] [address], [address] [place] [address] Health MaintenanceDue DateLast DoneCommentsCreatinine Level1943Lipid Panel 1943Medicare Annual Wellness Visit (AWV)4Potassium Level 4Diabetes Pmkfzajvp76/08/1962CKD: Urine Protein Wihxwzbvn70/08/1963 DTaP/Tdap/Td Vaccines (1 - Tdap)11/30/1965Zoster Vaccines (1 of 2)11/30/1993 Influenza Vaccine (#1)/, 03/26/2023, 05/20/2022, Additional history existsCOVID-19 Vaccine ( season), 02/16/2023, 03/29/2022, Additional history evbqwkVcyclnupuuurjv84/14/2026 08/06/2024, 01/16/2024, 05/16/2022TSH Level605/02/2025Pneumococcal DjlohxdRbxavbweg08/03/2024, 04/23/2021SV High Risk: (Elderly (60+) or Population)Nscdsoiqy84/31/2025HIB VaccinesAged OutNo longer eligible based on patient's [...] complete this topic Procedures Procedure NamePriorityDate/TimeAssociated DiagnosisCommentsOUTSIDE IMAGING SCAN 03/22/2025 OUTSIDE LAB SCAN03/18/2025 OUTSIDE LAB SCAN02/02/2025 TRANSTHORACIC ECHO (TTE) UYJYVEKMfrvsjg84/14/2025 12:[address] elevation myocardial infarction (STEMI), unspecified artery (Multi) Cardiomyopathy, ischemic 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 Authorizing ProviderResult TypeResult StatusGeneric Provider ScanningOUTSIDE SCANFinal Result * OUTSIDE LAB SCAN (03/18/2025) Only the most recent of2 resultswithin the time period is included. Narrative 03/18/2025 Ordered by an unspecified provider. Authorizing ProviderResult TypeResult StatusGeneric Provider ScanningOUTSIDE SCANFinal Result * TRANSTHORACIC ECHO (TTE) LIMITED (08/06/2024 12:04 PM EDT)ComponentValueRef RangeTest MethodAnalysis TimePerformed AtPathologist SignatureAV mn rkcz3voTt SYNGOAV pk vel1.38m/sSYNGOLV Biplane EF38%SYNGOLVOT diam2.23cmSYNGOMV E/A ratio0.70SYNGOMV avg E/e' ratio15.11SYNGOLV EF33%SYNGORV free wall pk S'12.40 cm/zYFJTOARXJ11.9wtHiLOLJMBUZSh6.46cmSYNGOAortic Valve Area by Continuity of Peak Velocity1.17po6TLLJUII pk vkge9lpIgQXHPCMbbjnl Valve Area by Continuity of VTI2.89qm5WUZDSHB A4C EF31.7SYNGOSpecimen (Source)Anatomical Location / LateralityCollection Method / VolumeCollection TimeReceived Time08/06/2024 10:43 AM EDT Narrative SYNGO - 08/11/2024 5:54 PM EDT ?[address], [place] [address] ? TRANSTHORACIC ECHOCARDIOGRAM REPORT Patient Name: ? ALEX GRAJEDA ?Reading Physician: ?[id number] Mally ?Brian CASILLAS Study Date: ? 08/06/2024 ? Ordering Provider: ?[id number] [place], [place] [address]LAW Mendez ?STOKES MRN/PID: ?[id number] ?Fellow: Accession#: ? [id number] ?Nurse: Date of /Age: ??1945 / 78 years [employer] Workers: ?Marlyn Castro ?RDCS, RT(R), ?RDMS, RVT Gender Assigned at ??M ? Additional Staff: : Height: ? 187.96 cm ? Admit Date: Weight: ? 92.53 kg ?Admission Status: ? Outpatient BSA / BMI: ?2.19 m2 / 26.19 ? Department Location: ??[facility] Heart ?kg/m2 ? 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 infarction of unspecified site-I21.3 Indication: ?STEMI CPT Codes: ? Echo Limited-65210 Patient History: Smoker: ?Former. Pertinent History: A-Fib, [...] m/s ??(0.6-0.9m/s) PV Max PG: ?1.6 mmHg [id number] Mally Torres MD Electronically signed on 08/11/2024 at 5:54:03 PM Final Procedure Note Mally Torres MD - 08/11/[address], Suite [facility], [place] [address] TRANSTHORACIC ECHOCARDIOGRAM REPORT Patient Name: ALEX Sawyer Physician: [id number] Rosales Study Date: 08/06/2024 Ordering Provider: [id number] ALYSSIA STOKES MRN/PID: [id number] Fellow: Nurse: Date of /Age: 7 1945 / 78 years [employer] Workers: Zeke YOO,RT(R), RDMS, RVT Gender Assigned at M Additional Staff: : Height: 187.96 cm Admit Date: Weight: 92.53 kg Admission Status: Outpatient BSA / BMI: 2.19 m2 / 26.19 Department Location: [facility] kg/m2 [place] Blood Pressure: 98 /64 mmHg Study Type: TRANSTHORACIC ECHO (TTE) LIMITED Diagnosis/ICD: Atherosclerotic heart disease of mechoopda coronary arterywithout angina pectoris-I25.10; ST elevation (STEMI) myocardial infarction of unspecified site-I21.3 Indication: STEMI CPT Codes: Echo Limited-94490 Patient History: Smoker: Former. Pertinent History: A-Fib, [...] 0.6 m/s (0.6-0.9m/s) PV Max P.6 mmHg [id number] Mally Torres MD Electronically signed on 08/11/2024 at 5:54:03 PM Final Authorizing ProviderResult TypeResult StatusTeo Stokes [facility] ECHO PROCEDURESFinal ResultPerforming OrganizationAddressCity/State/ZIP CodePhone Number SYNGO from Last 3 Months or Most Recently Relevant to Health Maintenance Insurance Care Teams Team MemberRelationshipSpecialtyStart DateEnd Stanley Toledo MD [address] [place] [phone] PCP - Assatvl39/23/22 Ruby Vickers MD [address] [facility] [address], [address] [place], [place] [phone] CardiologistElectrophysiology10/04/24
--- OUTSIDE RECORDS SUMMARY | 2025-03-24 13:09 | XMS_ITS | Encounter Summary ---
Author Organization [facility] Address [address] [place] [address] Care Team Providers Care Ethnic Studies Professor Name Role Phone Stanley Emerson MD Unavailable [phone] Stanley Emerson MD Primary Care Provider + [phone] Joi Zhang LPN Unavailable Encounter Details DateTypeDepartmentCare Team (Latest Contact Info)Jckcvnnzfxc80/28/2025linisync Result Encounter [facility] External Department Unsolicited Provider, Generic External Data Social History Tobacco UseTypesPacks/DayYears UsedDateSmoking Tobacco: FormerCigarettes0.561.2 Started: 12/31/1963Smokeless Tobacco: NeverAlcohol UseStandard Drinks/Week CommentsNever0 (1 standard drink = 0.6 oz pure alcohol)B1300 Health Literacy AnswerDate RecordedHow often do you need to have someone help you when you read instructions, pamphlets, or other written material from your doctor or pharmacy? Izllfr2612/30/2024Humiliation, Afraid, Rape, and Kick questionnaireAnswerDate RecordedWithin the [...] times a week12/31/2023How often do you attend religion or roman catholic services?Never12/31/2023o you belong to any clubs or organizations such as religion groups, unions, fraternal or athletic groups, or school groups?No12/31/2023How often do you attend meetings of the clubs or organizations you belong to?Never12/31/2023re you , , , , never , or living with a partner?Jkwznls2412/31/2023 AUDIT-CAnswerDate RecordedQ1: How often do you have [...] at all 12/31/2023HQ-2AnswerDate RecordedPatient Health Questionnaire-2 Score0 05/13/2024[facility] [place] of Occupational Health - Occupational Stress QuestionnaireAnswerDate RecordedDo you feel stress - tense, restless, nervous, or anxious, or unable to sleep at night because yourmind is troubled all the time - these days?Only a qscmvw1212/30/2024Exercise Vital SignAnswerDate Recorded On average, how many [...] homeless or living in a chcf (including now)?No12/31/2023Sex and Gender InformationValueDate RecordedSex Assigned at BirthNot on fileLegal SexMale 08/07/2022 7:16 PM EDTGender IdentityNot on fileSexual OrientationNot on file documented as of this encounter Plan of Treatment DateTypeDepartmentCare Team (Latest Contact Info)Arwcfyyzrwn71/16/2025 2:00 PM ESTOffice Visit [facility] [place] [address] Family Medicine [address] [facility] [address] [place] [address] Stanley Emerson MD [address] [facility] [address] [place] [address] documented as of this encounter Procedures Procedure NamePriorityDate/TimeAssociated DiagnosisCommentsXR CHEST 2V1 12:26 PM EDT documented in this encounter Results * XR CHEST 2V (03/22/2025 12:26 PM EDT)Anatomical RegionLateralityModalityOther Specimen (Source)Anatomical Location / LateralityCollection Method / Volume Collection TimeReceived Time03/22/2025 12:26 PM EDT Narrative 03/22/2025 12:29 PM EDT [facility] ?[address] ? [place] [address] ?XRay Report ? Signed ? Patient: GRAJEDA,ALEX H ?MR#: [id number] ?? : 1945 ?Acct:[id number] ?? Age/Sex: 79 / M ?ADM Date: 10/28/25 ?? Loc: RAD ? Attending Dr: MAGDY AL ? Ordering Physician: MAGDY AL ?? Date of Service: 03/22/25 ?? Procedure(s): XR chest 2V ?? Accession Number(s): [id number] ? cc: STANLEY EMERSON ; MAGDY AL ? [facility] ? [address] ? [place] [address] ? Patient Name: ?? ALEX GRAJEDA ? MRN: [facility]:[id number] ? date: 1945 ?Sex: M ?? Assigned Patient Location: RAD ?? Current Patient Location: RAD ?? Accession/Order Number: [id number] ?? Exam Date: 03/22/2025 ??11:45 ?Report Date: 03/22/2025 ??12:26 ? At the request of: ?? MAGDY AL ? Procedure: ??XR chest 2V ? PA AND LATERAL CHEST: ? CLINICAL HISTORY: Paroxysmal Atrial Fibrillation, High Risk Medication ? COMPARISON: 10/01/2024 ? There is elevation of the left hemidiaphragm with underlying air-filled ?? viscus. ??Minor scarring or atelectasis is present at the right base. ??There is ?? no developing consolidation, effusion or pneumothorax. ?? The cardiac, hilar ?? and mediastinal silhouettes are similar including aortic ectasia. ?? There is ?? no vascular congestion. ?? The visualized bony structures are osteopenic. Mild ?? endplate spurring is seen. ? XR/XR chest 2V ?? IMPRESSION: ? NO ACUTE CARDIOPULMONARY ABNORMALITY. ? Impression dictated by: Amy Person M.D. ??03/22/2025 12:26 PM ? Dictation Location: [facility] ? Electronically authenticated by: [id number] ??Y ?? Date: 03/22/2025 ??12:26 ? Dictated By: ?Amy Preson M.D. ? Signed By: ?03/22/25 1229 ? DD/ 1226 ? TD/TT: ? Wafer Cutter: Procedure Note Radiology, Radiologist, MD - 03/22/[address] [address] XRay Report Signed Patient: ALEX GRAJEDA HMR#: [id number] : 1945cct:[id number] Age/Sex: 79 / MADM Date: 03/22/25 Loc: RAD Attending Dr: MAGDY AL Ordering Physician: MAGDY AL Date of Service: 03/22/25 Procedure(s): XR chest 2V Accession Number(s): [id number] cc: STANLEY EMERSON ; MAGDY AL [place] [id number] Patient Name: ALEX GRAJEDA MRN: [id number] date: 1945 Sex: M Assigned Patient Location: RAD Current Patient Location: [facility] Accession/Order Number: [id number] Exam Date: 03/22/2025 11:45 Report Date: 03/22/2025 12:26 At the request of: MAGDY AL Procedure: XR chest 2V PA AND LATERAL CHEST: CLINICAL HISTORY: Paroxysmal Atrial Fibrillation, High Risk Medication COMPARISON: 10/01/2024 There is elevation of the left hemidiaphragm with underlying air-filled viscus. Minor scarring or atelectasis is present at the right base.There is no developing consolidation, effusion or pneumothorax. The cardiac,hilar and mediastinal silhouettes are similar including aortic ectasia. Thereis no vascular congestion. The visualized bony structures are osteopenic.Mild endplate spurring is seen. XR/XR chest 2V IMPRESSION: NO ACUTE CARDIOPULMONARY ABNORMALITY. Impression dictated by: Amy Person M.D. 03/22/2025 12:26 PM Dictation Location: [place] [address] Electronically authenticated by: [id number] Y Date: 2:26 Dictated By: Amy Person M.D. Signed By:03/22/25 1229 DD/ 1226 TD/TT: Wafer Cutter: Authorizing ProviderResult TypeResult StatusGeneric External Data Provider CLINISYNC IMAGINGFinal Result documented in this encounter Visit Diagnoses Not on filedocumented in this encounter Additional Health Concerns AssessmentNoted TimePHQ-9 Depression Total Score: 2:00 PM ESTA fall risk assessment has been completed for the zyznldp6312/31/2023 8:54 AM EDT documented as of this encounter Care Teams Team MemberRelationshipSpecialtyStart DateEnd Date Stanley Emerson MD [address] [place] [address] PCP - ACO Reach10/17/22 Stanley Emerson MD [address] [place] [address] PCP - GeneralFamily Medicine11/20/22 Joi Zhang LPN [address] [place] [address] 08/26/24documented as of this encounter
--- OUTSIDE RECORDS SUMMARY | 2025-03-24 13:09 | XMS_ITS | Encounter Summary ---
Author Organization [facility] Address [address] [place] [address] Phone Care Team Providers Care Mainframe Architect Name Role Phone Stanley Toledo MD Primary Care Provider Ruby Vickers MD Unavailable Encounter Details DateTypeDepartmentCare Team (Latest Contact Info)Bsqaujydbva96/24/2025Scanned Document [facility] [address] [place] [phone] Scanning, Generic Provider Social History Tobacco UseTypesPacks/DayYears UsedDateSmoking Tobacco: FormerCigarettes Smokeless Tobacco: NeverAlcohol UseStandard Drinks/WeekCommentsNever0 (1 standard drink = 0.6 oz pure alcohol)Sex and Gender InformationValueDate RecordedSex Assigned at BirthNot on fileLegal GqsCrkz53/29/2022 5:17 PM EST Gender IdentityNot on fileSexual OrientationNot on filedocumented as of this encounter Plan of Treatment DateTypeDepartmentCare Team (Latest Contact Info)Vpzgqrrksbm13/04/2025 11:00 AM ESTOffice Visit [facility] [address] [facility] [address] [place] [address] Teo Stokes MD [address] [facility] [address], [address] [place] [address] documented as of this encounter [...] Date Stanley Toledo MD [address] [place] [address] PCP - Nmyvazh18/23/22 Ruby Vickers MD [address] [facility] [address], [address] [place] [address] CardiologistElectrophysiology10/04/24documented as of this encounter
--- OUTSIDE RECORDS SUMMARY | 2025-03-24 13:10 | XMS_ITS | Encounter Summary ---
Author Organization [facility] Address [address] [place] [address] Care Team Providers Care Student Recruiter Name Role Phone Stanley Emerson MD Unavailable [phone] Stanley Emerson MD Primary Care Provider + [phone] Dora Santiago FOLDER HAND Unavailable Christina Goddard FOLDER HAND Unavailable Unavailable Joi Zhang FOLDER HAND Unavailable Encounter Details DateTypeDepartmentCare Team (Latest Contact Info)Pevstgjnqwc49/07/2024linisync Result Encounter [facility] External Department Unsolicited Provider, [...] times a week12/31/2023How often do you attend bahai or christian services?Never12/31/2023o you belong to any clubs or organizations such as bahai groups, unions, fraternal or athletic groups, or school groups?No 12/31/2023How often do you attend meetings of the clubs or organizations you belong to?Never12/31/2023re you , , , , never , or living with a partner?Gdldjwd8612/31/2023UDIT-CAnswerDate RecordedQ1: How often do you have a [...] hard at all12/31/2023HQ-2AnswerDate Recorded Patient Health Questionnaire-2 Brbwj35007/14/2023[facility] [place] of Occupational Health - Occupational Stress QuestionnaireAnswerDate RecordedDo you feel stress - tense, restless, nervous, or anxious, or unable to sleep at night because your mind is troubled all the time - these days?Only a ilnwjh1012/30/2024Exercise Vital SignAnswerDate RecordedOn average, how many days [...] InformationValueDate RecordedSex Assigned at BirthNot on fileLegal GbfQxfl8108/07/2022 7:16 PM EDTGender IdentityNot on fileSexual OrientationNot on filedocumented as of this encounter Functional Status * AUDIT-C ScoreAnswerDate of EousoshzscXzweqq183/07/2024 8:57 AM Dora Tompkins LPN * QuestionAnswerDate [...] hopelessNot at all05/13/2024 2:00 PM Ruby, August, [facility]ITALatient Health Questionnaire-2 Dkqdq542 2:00 PM Betty Beltran, DUSTY * QuestionAnswerDate [...] all05/13/2024 2:00 PM Tiarraaugust, MAPatient Health Questionnaire-9 Uiljs87207/14/2023 2:00 PM Betty Beltran MA documented as of this encounter Plan of Treatment DateTypeDepartmentCare Team (Latest Contact Info)Wexcuxgmfdg96/16/2025 2:00 PM ESTOffice Visit [facility] Family Medicine [address] [facility] [address] [place] [address] Stanley Emerson MD [address] [facility] [address] [place] [address] documented as of this encounter Procedures Procedure NamePriorityDate/TimeAssociated DiagnosisCommentsVASC US LOWER EXTREMITY VENOUS DUPLEX RIGHT07/31/2023 10:47 AM EST documented in this encounter Results * Vascular US lower extremity venous duplex right (07/31/2023 10:47 AM EST) Anatomical RegionLateralityModalityLower ExtremitiesUltrasoundSpecimen (Source)Anatomical Location / LateralityCollection Method / VolumeCollection TimeReceived Time07/31/2023 10:47 AM EST Narrative 07/31/2023 10:50 AM EST [facility] ?[address] ? [place], [facility] ? Ultrasound Report ? Signed ? Patient: GRAJEDA,ALEX H ?MR#: [id number] ?? : 1945 ?Acct:[id number] ?? Age/Sex: 77 / M ?ADM Date: 07/31/23 ?? Loc: RAD ? Attending Dr: Shahriar Mosley M.D. ? Ordering Physician: Shahriar Mosley ?? Date of Service: 07/31/23 ?? Procedure(s): US venous doppler LE RT ?? Accession Number(s): [id number] ? cc: Shahriar Mosley; STANLEY EMERSON ? [facility] ? [address] [facility] ? [place] [address] ? Patient Name: ?? ALEX GRAJEDA ? MRN: [facility]:[id number] ? date: 1945 ?Sex: M ?? Assigned Patient Location: RAD ?? Current Patient Location: RAD ?? Accession/Order Number: [id number] ?? Exam Date: 07/31/2023 ??08:40 ?Report Date: [...] 1050 ? DD/ 1047 ? TD/TT: ? Gas Engineer: Procedure Note Radiology, Radiologist, MD - 07/31/2023 [place] [address] Ultrasound Report Signed Patient: ALEX GRAJEDA R#: [id number] : 1945cct:[id number] Age/Sex: 77 / MADM Date: 07/31/23 Loc: RAD Attending Dr: Shahriar Mosley M.D. Ordering Physician: Shahriar Mosley Date of Service: 07/31/23 Procedure(s): US venous doppler LE RT Accession Number(s): [id number] cc: Shahriar Mosley; STANLEY EMERSON [place] [address] Patient Name: ALEX GRAJEDA MRN: [id number] date: 1945 Sex: M Assigned Patient Location: [facility] Current Patient Location: [facility] Accession/Order Number: [id number] Exam Date: 07/31/2023 08:40 Report Date: 07/31/2023 [...] M.D. Signed By:07/31/23 1050 DD/ 1047 TD/TT: Gas Engineer: Authorizing ProviderResult TypeResult StatusGeneric External Data ProviderIMG US PROCEDURESFinal Result documented in this encounter Visit Diagnoses Not on filedocumented in this encounter Additional Health Concerns AssessmentNoted TimePHQ-9 Depression Total Score: 1:00 PM EST documented as of this encounter Care Teams Team MemberRelationshipSpecialtyStart DateEnd Date Stanley Emerson MD [address] [place] [address] (Eerj) PCP - ACO Reach10/17/22 Stanley Emerson MD [address] [place] [address] (Fax) PCP - GeneralFamily Medicine11/20/22 Dora Santiago LPN [address] [place] [address] Licensed Practical NurseFamily Medicine/08/17 Christina Goddard LPN Licensed Practical NurseFamily Medicine/06/18 Joi Zhang LPN [address] [place] [address] 08/26/24documented as of this encounter
--- OUTSIDE RECORDS SUMMARY | 2025-03-24 13:10 | XMS_ITS | Encounter Summary ---
Author Organization [facility] Address [address] [place] [address] Care Team Providers Care Nurse Wound Care Name Role Phone Stanley Toledo MD Unavailable [phone] Stanley Toledo MD Primary Care Provider + [phone] Dora Santiago ENVIRONMENTAL FIELD OFFICE MANAGER Unavailable Vicente Joi ENVIRONMENTAL FIELD OFFICE MANAGER Unavailable Encounter Details DateTypeDepartmentCare Team (Latest Contact Info)Yzvxuzcnwlo09/30/2024Clinisync Result Encounter [facility] External Department Unsolicited Provider, Generic External Data Social History Tobacco UseTypesPacks/DayYears UsedDateSmoking Tobacco: FormerCigarettes0.561.2 Started: 12/31/1963Smokeless Tobacco: NeverAlcohol UseStandard Drinks/Week CommentsNever0 (1 standard drink = 0.6 oz pure alcohol)B1300 Health Literacy AnswerDate RecordedHow often do you need to have someone help you when you read instructions, pamphlets, or other written material from your doctor or pharmacy? Rqxeac5912/30/2024Humiliation, Afraid, Rape, and Kick questionnaireAnswerDate RecordedWithin the [...] times a week12/31/2023How often do you attend anabaptism or taoism services?Never12/31/2023o you belong to any clubs or organizations such as anabaptism groups, unions, fraMidawi Holdings or athletic groups, or school groups?No12/31/2023How often do you attend meetings of the clubs or organizations you belong to?Never12/31/2023re you , , , , never , or living with a partner?Gkkrfdq7912/31/2023 AUDIT-CAnswerDate RecordedQ1: How often do you have [...] at all 12/31/2023HQ-2AnswerDate RecordedPatient Health Questionnaire-2 Score0 05/13/2024[facility] [place] of Occupational Health - Occupational Stress QuestionnaireAnswerDate RecordedDo you feel stress - tense, restless, nervous, or anxious, or unable to sleep at night because yourmind is troubled all the time - these days?Only a hrblat1112/30/2024Exercise Vital SignAnswerDate Recorded On average, how many [...] 2:00 PM Ruby August, MAPatient Health Questionnaire-2 Inacb34307/14/2023 2:00 PM Betty Beltran, DUSTY * QuestionAnswerDate [...] all05/13/2024 2:00 PM JENIFFERAugust, MAPatient Health Questionnaire-9 Xnxcj41507/14/2023 2:00 PM Ruby, August, [place] documented as of this encounter Plan of Treatment DateTypeDepartmentCare Team (Latest Contact Info)Kmosdhtdegj75/16/2025 2:00 PM ESTOffice Visit [facility] [address] [place] [address] [place] [address] Stanley Toledo MD [address] [place] [address] documented as of this encounter Procedures Procedure NamePriorityDate/TimeAssociated DqwpjqkweWnshmnhkPGV71/30/2024 11:46 AM EDT documented in this encounter Results * ITP (03/24/2024 11:46 AM EDT)Anatomical RegionLateralityModalityOtherSpecimen (Source)Anatomical Location / LateralityCollection Method / VolumeCollection TimeReceived Time03/24/2024 11:46 AM EDT Narrative 03/24/2024 11:29 PM EDT [facility] ?[address] ? [place] [address] ?Cardiac Rehab Report ? Signed ? Patient: GRAJEDA,ALEX Wilder ?MR#: [id number] ?? : 1945 ?Acct:[id number] ?? Age/Sex: 78 / M ?ADM Date: 03/24/24 ?? Loc: CR ? Attending Dr: MAGDY AL ? Ordering Physician: Arnol Garnica D.O. ?? Date of Service: 03/24/24 ?? Procedure(s): ITP ?? Accession Number(s): [id number] ? cc: ?[facility] ? Test Date: ?2024-03-24 ?? Pat Name: ? ALEX GRAJEDA ? Department: ? Room: ? - ?? Gender: ? Male ? Upholstery Bundler: ? : ?1945 ? Requested By: ARNOL ??BALL ?? Order Number: [id number] ?Reading MD: ?? ARNOL ??BALL ? Interpretive Statements ?? Session Date: ? Electronically Signed On 03-24-2024 23:29:20 EDT by ARNOL ??BALL ? Dictated By: ?Kristopher,Arnol D.O. ? Signed By: ?03/24/24 2329 ?03/24/249 ? DD/ 1146 ? TD/TT: ? Shipfitter: Procedure Note Radiology, Radiologist, MD - 03/24/2024 [place] [address] Cardiac Rehab Report Signed Patient: ALEX GRAJEDA R#: [id number] : 4Acct:[id number] Age/Sex: 78 / MADM Date: 03/24/24 Loc: CR Attending Dr: MAGDY AL Ordering Physician: Arnol Garnica D.O. Date of Service: 03/24/24 Procedure(s): ITP Accession Number(s): [id number] cc: [facility] Test Date: 2024-03-24 Pat Name: ALEX GRAJEDA Department: Room: - Gender: Male Upholstery Bundler: : 1945 Requested By: ARNOL GARNICA Order Number: [id number] Silverio MD: ARNOL GARNICA Interpretive Statements Session Date: Electronically Signed On 03-24-2024 23:29:20 EDT by ARNOL GARNICA Dictated By: Arnol Garnica D.O. Signed By:03/24/24232803/24/242328 DD/ 114 TD/TT: Shipfitter: Authorizing ProviderResult TypeResult StatusGeneric External Data Provider CLINISYNC IMAGINGFinal Result documented in this encounter Visit Diagnoses Not on filedocumented in this encounter Additional Health Concerns AssessmentNoted TimePHQ-9 Depression Total Score: 1:00 PM ESTA fall risk assessment has been completed for the kixvbqg0712/31/2023 8:54 AM EDT documented as of this encounter Care Teams Team MemberRelationshipSpecialtyStart DateEnd Date Stanley Toledo MD [address] [place] [address] (Fax) PCP - ACO Reach10/17/22 Stanley Toledo MD [address] [place] [address] PCP - GeneralFamily Medicine11/20/22 Dora Santiago LPN [address] [place] [address] Licensed Practical NurseFamily Medicine Joi Zhang LPN [address] [place] [address] 08/26/24documented as of this encounter
--- OUTSIDE RECORDS SUMMARY | 2025-03-24 13:10 | XMS_ITS | Clinical Summary ---
Author Organization [facility] Address [address] [place] [address] Care Team Providers Care Career Counselor Name Role Phone Stanley Emerson MD Unavailable [phone] Stanley Emerson MD Primary Care Provider + [phone] Joi Zhang LPN Unavailable Allergies No known [...] tablet Take 80 mg by mouth at kwzdxou9501/16/2024ctive nitroglycerin (Nitrostat) 0.[address] [...] 2 tablets (20 mg) by mouth at hsyaihp545Active potassium chloride CR (Klor-Con M20) 20 MEQ ER tablet Take 20 mEq by mouth Daily01/28/2025tive fexofenadine (Pham) 180 MG tablet Take 180 mg by mouth DailyActive Active Problems ProblemNoted DateDiagnosed DateAneurysm of left popliteal ptqtnp0903/15/2025 Uiohlxmstsr26/21/2025Delirium due to another medical wrmhhdoiz98/11/2025Lower extremity edema10/02/2024ommunity acquired pneumonia of lower lobe of lung 10/02/2024nemia due to stage 3b chronic kidney dazlraq0905/13/2024HF (congestive heart failure)02/17/2024Ischemic zfdneealvnnhkb76/17/2024resence of stent in LAD coronary geprkx7501/28/2024Former lwrlfu7101/28/2024ilateral hydronephrosis 10/06/2023Folic acid zpfumzwchs04/13/2024Vitamin B 12 hblfdrasdt38/13/2024Stage 3b chronic kidney grjprso3205/12/20235206Cuvwsqajwlb71/27/5500Gbogefwu74/27/2023OPD with joxknyuyj69/27/2023PH with urinary wrgodfcfjmj24/27/2023bdominal aortic aneurysm (AAA) greater than 5.5 cm in diameter in male11/11/2022therosclerosis of right carotid arpznr9311/11/2022Essential hypertension, wxjngj8511/11/2022Hearing difficulty of both ears11/11/20220508Ulywhitdlmdoajiz20/19/2023Mixed dyslipidemia 11/11/20227854Viuggxquaj85/19/2023aroxysmal SVT (supraventricular tachycardia) 11/11/2022Simple chronic aldtarxwgj63/19/2023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 11/11/2022Urinary bladder wvfnzsic24/19/2023Venous insufficiency of lower fswchwxit08/19/2023White matter annclwb3311/11/2022Transient cerebral ischemic ejopyj1505/16/20228786Tzqwbwukhkcz36/16/2021Hearing loss11/22/2019Hypertensive mpkbcrdtymw24/29/2016 Resolved Problems ProblemNoted DateDiagnosed DateResolved DateNew onset a-fib/02/2024 S/P PTCA (percutaneous transluminal coronary angioplasty)/ Metabolic lxoawapq04History of bladder oncwmo0012/19/2022 12/19/2022Obstructive cjjkhrbx85Sundowning Acute kidney xcxnmfo33Hypertensive nephropathy, stage 1-4 or unspecified chronic kidney iiehmke22History of cardiovascular sgwkylzi84igarette Encounters DateTypeDepartmentCare PrvrAiwnpuremsy02/28/2025linisync Result Encounter [facility] External [facility] Unsolicited Provider, Generic External Data 03/21/2025Patient Outreach [facility] [address] [place] [address] Joi Zhang LPN 03/18/2025linisync Result Encounter [facility] External Department Unsolicited Provider, Generic External Data 03/15/2025Orders Only [facility] [address] [facility] [address] [place] [address] Betty Cohen MA 02/28/2025linisync Result Encounter [facility] External Department Unsolicited Provider, Generic External Data 02/09/2025bstract [facility] [address] [facility] [address] [place] [address] Stanley Emerson MD 02/02/2025Telephone [facility] [address] [facility] [address] [place] [address] Stanley Emerson MD 02/02/2025linisync Result Encounter [facility] External Department Unsolicited Provider, Generic External Data 01/31/2025Patient Outreach [facility] [address] [place] [address] Joi Zhang LPN 01/13/2025bstract [facility] [address] [facility] [address] [place] [address] Stanley Emerson MD 01/12/2025Telephone [facility] [address] [facility] [address] [place] [address] Stanley Emerson MD 12/30/2024Patient Outreach [facility] [address] [place] [address] Joi Zhang LPN from Last 3 Months Immunizations ImmunizationAdministration DatesNext DueInfluenza, High Dose Seasonal, Preservative Free05/20/2022,02/14/2021Influenza, High-dose Seasonal, Quadrivalent, Preservative Free03/06/2022Influenza, Seasonal, Quadrivalent, Dqmauxwlqt89/01/2023Influenza, injectable, quadrivalent, preservative free 02/22/2021,02/22/2020Influenza, recombinant, quadrivalent, injectable, preservative free02/22/2020Influenza, seasonal, lcmrztgwxi94/25/2024,03/16/2022 Moderna Bivalent Booster Sesevfxdqfy52/04/2022Pfizer Mane Cap SARS-CoV-2 Ueyztdobzab12/11/2022Pfizer Purple Cap SARS-CoV-2 Mjgswktcqxp08/25/2024 Pneumococcal Conjugate PCV 4Pneumococcal Polysaccharide PPSV23 1RSV, recombinant, protein subunit RSVpreF, adjuvant reconstitu, 120mcg/0.5mL, PF (Arexvy)08/23/20241175ZOSW-EMA-4 (COVID-19) vaccine, mRNA, spike protein, LNP, PF, valente-sucrose, 30 mcg/0.3 mL02/16/20235127DKHM-ZcR-8, Unspecified 10/03/2021 Family History RelationNameStatusCommentsBrotherAlive1 brotherDaughterAlive1 daughterFather DeceasedMotherDeceasedSonAlive1 son Social History Tobacco UseTypesPacks/DayYears UsedDateSmoking Tobacco: FormerCigarettes0.561.2 Started: 12/31/1963Smokeless Tobacco: Never Tobacco Cessation:Counseling Given: Yes Alcohol UseStandard Drinks/WeekCommentsNever0 (1 standard drink = 0.6 oz pure alcohol)B1300 Health LiteracyAnswerDate RecordedHow often do you need to have someone help you when you read instructions, pamphlets, or other written material from your doctor or pharmacy?Zkreri6612/30/2024Humiliation, Afraid, Rape, and Kick questionnaireAnswerDate RecordedWithin the [...] of sexual activity by your partner or ex-partner?No08/07/2024Social Connection and Isolation Panel AnswerDate RecordedIn a typical week, how many times do you talk on the phone with family, friends, or neighbors?More than three times a week12/31/2023How often do you get together with friends or relatives?More than three times a week 12/31/2023How often do you attend nondenominational or confucianist services?Never12/31/2023o you belong to any clubs or organizations such as nondenominational groups, unions, fraternal or athletic groups, or school groups?No12/31/2023How often do you attend meetings of the clubs or organizations you belong to?Never12/31/2023re you , , , , never , or living with a partner?Iafcvxx0112/31/2023UDIT-CAnswerDate RecordedQ1: How often do you have a [...] heating?Not hard at all12/31/2023HQ-2AnswerDate RecordedPatient Health Questionnaire-2 Uduvk36707/14/2023[facility] [place] [facility] - Occupational Stress QuestionnaireAnswerDate RecordedDo you feel stress - tense, restless, nervous, or anxious, or unable to sleep at night because yourmind is troubled all the time - these days?Only a vhnner4912/30/2024Exercise Vital Sign AnswerDate RecordedOn average, how many [...] InformationValueDate RecordedSex Assigned at BirthNot on fileLegal MzzBytt7508/07/2022 7:16 PM EDTGender IdentityNot on fileSexual OrientationNot on file Last Filed Vital Signs Vital SignReadingTime TakenCommentsBlood Bnonchmg15/6805/ 3:01 PM EDT Rotmr627405/13/2024 2:38 PM ESTTemperature--Respiratory Rate--Oxygen Wjkrjodjxc74% 05/13/2024 2:38 PM ESTInhaled Oxygen Concentration--Qnxbkj60.1 kg (203 lb) 09/21/2024 2:08 PM WTEQcuiuf268 cm (6' 2 )09/21/2024 2:08 PM EDTBody Mass Index 26.0609/21/2024 2:08 PM EDT Plan of Treatment DateTypeDepartmentCare Team (Latest Contact Info)Tjjtroluynv43/16/2025 2:00 PM ESTOffice Visit [facility] [address] [facility] [address] [place] [address] Stanley Emerson MD [address] [facility] [address] [place] [address] Health MaintenanceDue DateLast DoneCommentsDTaP/Tdap/Td Vaccines (1 - Tdap) 1COVID-19 Vaccine ( season), 03/19/2024, 02/16/2023, Additional history existsInfluenza Vaccine (#1), 03/26/2023, 05/20/2022, Additional history existsMedicare Annual Wellness (AWV) , 05/12/2023neumococcal Vaccine: 65+ YearsCompleted 05/28/2023, 04/23/2021HIB VaccinesAged [...] to complete this topic Procedures Procedure NamePriorityDate/TimeAssociated DiagnosisCommentsXR CHEST 2V1 12:26 PM EDT ALL THYROID STIM OHYGFQFEemdrxu57/24/2025 8:16 AM EDT ALL LIPID PROFILE (FASTING)Mvgyzop4703/18/2025 8:16 AM EDT C[facility] TSVTfpkgjj03/24/2025 8:16 AM EDT ALL BASIC METABOLIC MTHGGEuroprv19/24/2025 8:16 AM EDT TBH VITAMIN D 25 TOUvgqvhy14/06/2025 11:57 AM EDT C[facility] JHKGFVRIJrwyqvx84/06/2025 11:57 AM EDT HMHP PTH, NFVBEVJKKGVBEUEhniese54/06/2025 11:57 AM EDT VITAMIN K37Hkmyyip64/06/2025 11:57 AM EDT FOLATE (FOLIC ACID), FUKYXIitqetf72/06/2025 11:57 AM EDT ALL MHNHOWTXNCtghtyu01/06/2025 11:57 AM EDT ALL URIC IIGYIzqlkgc72/06/2025 11:57 AM EDT ALL RENAL FUNCTION JGRNQMdgjqgy08/06/2025 11:57 AM EDT METRO IRON AND VZMQXirtdnt60/06/2025 11:57 AM EDT HMHP CBC WITH PLATELET NO PQVSQSHJUTBKCceiihb51/06/2025 11:57 AM EDT TBH URINE T PROTEIN CREAT AYZONVeorzdf97/06/2025 11:34 AM EDT ALL FDRBWTFGBUEdruoxd72/10/2025 1:01 PM EDT from Last 3 Months Results * XR CHEST 2V (03/22/2025 12:26 PM EDT)Anatomical RegionLateralityModalityOther Specimen (Source)Anatomical Location / LateralityCollection Method / Volume Collection TimeReceived Time03/22/2025 12:26 PM EDT Narrative 03/22/2025 12:29 PM EDT [facility] ?[address] ? [place] [address] ?XRay Report ? Signed ? Patient: TARAS,ALEX Wilder ?MR#: [id number] ?? : 1945 ?Acct:[id number] ?? Age/Sex: 79 / M ?ADM Date: 03/22/25 ?? Loc: RAD ? Attending Dr: MAGDY AL ? Ordering Physician: MAGDY AL ?? Date of Service: 03/22/25 ?? Procedure(s): XR chest 2V ?? Accession Number(s): [id number] ? cc: STANLEY EMERSON ; MAGDY AL ? [facility] ? [address] ? [place] [address] ? Patient Name: ?? ALEX GRAJEDA ? MRN: [facility]:[id number] ? date: 1945 ?Sex: M ?? Assigned Patient Location: RAD ?? Current Patient Location: RAD ?? Accession/Order Number: [id number] ?? Exam Date: 03/22/2025 ??11:45 ?Report Date: [...] M.D. ??03/22/2025 12:26 PM ? Dictation Location: [facility]- ? Electronically authenticated by: [id number] ??Y ?? Date: 03/22/2025 ??12:26 ? Dictated By: ?Amy Person M.D. ? Signed By: ?03/22/25 1229 ? DD/ 1226 ? TD/TT: ? Senior Credit Officer: Procedure Note Radiology, Radiologist, MD - 03/22/2025 [place] [address] XRay Report Signed Patient: ALEX GRAJEDA R#: [id number] : 4Acct:[id number] Age/Sex: 79 / MADM Date: 03/22/25 Loc: RAD Attending Dr: MAGDY AL Ordering Physician: AL,CURRAN M Date of Service: 03/22/25 Procedure(s): XR chest 2V Accession Number(s): [id number] cc: STANLEY EMERSON ; MAGDY AL [address] [address] Patient Name: ALEX GRAJEDA MRN: [id number] date: 1945 Sex: M Assigned Patient Location: RAD Current Patient Location: RAD Accession/Order Number: [id number] Exam Date: 03/22/2025 11:45 Report Date: 03/22/2025 [...] Person M.D. 03/22/2025 12:26 PM Dictation Location: [place] [address] Electronically authenticated by: [id number] Y Date: 2:26 Dictated By: Amy Person M.D. Signed By:03/22/25 1229 DD/ 1226 TD/TT: Senior Credit Officer: Authorizing ProviderResult TypeResult StatusGeneric External Data Provider [facility] IMAGINGFinal Result * [facility] AST (03/18/2025 8:16 AM EDT)ComponentValueRef RangeTest MethodAnalysis TimePerformed AtPathologist SignatureASPARTATE AMINO XRETIIARVGN0768 - 37 U/L TBHSpecimen (Source)Anatomical Location / LateralityCollection Method / Volume Collection TimeReceived Time03/18/2025 8:16 AM EDT1 8:17 AM EDT Narrative [facility] - 03/18/2025 10:29 AM EDT Authorizing ProviderResult TypeResult StatusGeneric External Data Provider CLINISYNCFinal ResultPerforming OrganizationAddressCity/State/ZIP CodePhone Number THOMAS [facility] * (ABNORMAL) ALL THYROID STIM HORMONE (03/18/2025 8:16 AM EDT)ComponentValueRef RangeTest MethodAnalysis TimePerformed AtPathologist SignatureTHYROID STIMULATING NDDTJRB71.644(H)0.358 - 3.740 uIU/mLTBHSpecimen (Source)Anatomical Location / LateralityCollection Method / VolumeCollection TimeReceived Time 03/18/2025 8:16 AM EDT1 8:17 AM EDT Narrative [facility] - 03/18/2025 10:29 AM EDT Authorizing ProviderResult TypeResult StatusGeneric External Data Provider CLINISYNCFinal ResultPerforming OrganizationAddressCity/State/ZIP CodePhone Number THOMAS [facility] * (ABNORMAL) ALL LIPID PROFILE (FASTING) (03/18/2025 8:16 AM EDT)ComponentValue Ref RangeTest MethodAnalysis TimePerformed AtPathologist Signature BSUQELCJYYPBN98<=150 mg/xALNPOSBDEHGABAS59<=200 mg/dLTBHHDL LBZOPDMMQYK86(L)40 - 60 mg/dLTBHComment: > or =60 mg/dl - LOW CARDIOVASCULAR RISK <40 mg/dl - HIGH CARDIOVASCULAR RISK LDL CHOLESTEROL EPJTRIBSTM92.0mg/dLTBHComment: <100 mg/dl OPTIMAL 100-129 mg/dl NEAR OR ABOVE OPTIMAL 130-159 mg/dl BORDERLINE HIGH 160-189 mg/dl HIGH >190 mg/dl VERY HIGH VLDL PVBHPFWMWLP29.8mg/dLTBHCHOL HDL RATIO2.2TBHComment: 3.3 - 4.4 ?? LOW RISK 4.4 - 7.1 ?? AVERAGE RISK 7.1 - 11.0 ??MODERATE RISK >11.0 HIGH RISK Specimen (Source)Anatomical Location / LateralityCollection Method / Volume Collection TimeReceived Time03/18/2025 8:16 AM EDT1 8:17 AM EDT Narrative [facility] - 03/18/2025 10:29 AM EDT Authorizing ProviderResult TypeResult StatusGeneric External Data Provider CLINISYNCFinal ResultPerforming OrganizationAddressCity/State/ZIP CodePhone Number [facility] * (ABNORMAL) ALL BASIC METABOLIC PANEL (03/18/2025 8:16 AM EDT)ComponentValueRef RangeTest MethodAnalysis TimePerformed AtPathologist MesuaadzvFIGTLO897(H)136 - 145 mmol/LTBHPOTASSIUM3.93.5 - 5.1 mmol/XAXLOBNUSZWO07580 - 107 mmol/LTBH [place] BKPLZCA10.521.0 - 32.0 mmol/LTBHANION GAP16.1VLCXDMOSHH8387 - 106 mg/dL TBHBLOOD UREA XJNGHHFG50.0(H)7.0 - 18.0 mg/dLTBHCREATININE1.80(H)0.70 - 1.30 mg/dLTBHTBH EGFR-AF JENAOSRK11(L)>=60 mL/min/1.73m 2TBHTBH EGFR-NON AF ZHAHZFTP40(L)>=60 mL/min/1.73m 2TBHBUN CREATININE RATIO14.1HRDSRGABCV2.88.5 - 10.1 mg/dLTBHSpecimen (Source)Anatomical Location / LateralityCollection Method / VolumeCollection TimeReceived Time03/18/2025 8:16 AM EDT1 8:17 AM EDT Narrative [facility] - 03/18/2025 10:29 AM EDT Authorizing ProviderResult TypeResult StatusGeneric External Data Provider CLINISYNCFinal ResultPerforming OrganizationAddressty/State/ZIP CodePhone Number [facility] * VITAMIN B12 (02/28/2025 11:57 AM EDT)ComponentValueRef RangeTest Method Analysis TimePerformed AtPathologist SignatureVITAMIN [id number] - 1245 pg/mL TBHComment: Performed at: ?? - [facility] [address] ??[id number] Tax Manager Public: Morgan Carpenter PhD, Phone: ??[phone] Specimen (Source)Anatomical Location / LateralityCollection Method / Volume Collection TimeReceived Time02/28/2025 11:57 AM EDT1 11:59 AM EDT Narrative [facility] - 03/01/2025 4:07 AM EDT Authorizing ProviderResult TypeResult StatusGeneric External Data ProviderLAB BLOOD ORDERABLESFinal ResultPerforming OrganizationAddEagleville Hospitalty/State/ZIP Code Phone Number [facility] * FOLATE (FOLIC ACID), SERUM (02/28/2025 11:57 AM EDT)ComponentValueRef Range Test MethodAnalysis TimePerformed AtPathologist SignatureFOLATE (FOLIC ACID) >20.0>3.0 ng/mLTBHComment: A serum folate concentration of less than 3.1 ng/mL is considered to represent clinical deficiency. Performed at: ??CB - [facility] [address] ??[id number] Tax Manager Public: Morgan Carpenter PhD, Phone: ??[phone] Specimen (Source)Anatomical Location / LateralityCollection Method / Volume Collection TimeReceived Time02/28/2025 11:57 AM EDT1 3:01 PM EDT Narrative [facility] - 03/01/2025 4:07 AM EDT Authorizing ProviderResult TypeResult StatusGeneric External Data ProviderLAB BLOOD ORDERABLESFinal ResultPerforming OrganizationAddressty/State/ZIP Code Phone Number [facility]AS [facility] * TBH VITAMIN D 25 [place] (02/28/2025 11:57 AM EDT)ComponentValueRef RangeTest MethodAnalysis TimePerformed AtPathologist SignatureVITAMIN D56.8ng/mLTBH Comment: <20 ng/mL Vit D deficient 20-<30 ng/mL Vit D insufficient 30-100 ng/mL ??Vit D sufficient >100 ng/mL Potential Toxicity Specimen (Source)Anatomical Location / LateralityCollection Method / Volume Collection TimeReceived Time02/28/2025 11:57 AM EDT1 11:59 AM EDT Narrative [facility] - 03/02/2025 5:25 PM EDT Authorizing ProviderResult TypeResult StatusGeneric External Data Provider CLINISYNCFinal ResultPerforming OrganizationAddEagleville Hospitalty/State/ZIP CodePhone Number [facility] * (ABNORMAL) METRO IRON AND TIBC (02/28/2025 11:57 AM EDT)ComponentValueRef RangeTest MethodAnalysis TimePerformed AtPathologist SignatureTBH IRON29.0(L) 65.0 - 175.0 ug/dLTBHTBH TOTAL IRON BINDING GHBURJJW889.0250.0 - 450.0 ug/dL TBHTBH PERCENT IRON SATURATION9.6%TBHSpecimen (Source)Anatomical Location / LateralityCollection Method / VolumeCollection TimeReceived Time02/28/2025 11:57 AM EDT1 11:59 AM EDT Narrative [facility] - 02/28/2025 12:40 PM EDT Authorizing ProviderResult TypeResult StatusGeneric External Data Provider CLINISYNCFinal ResultPerforming OrganizationAddressCity/State/ZIP CodePhone Number [facility] TB * (ABNORMAL) HMHP PTH, INTRAOPERATIVE (02/28/2025 11:57 AM EDT)ComponentValueRef RangeTest MethodAnalysis TimePerformed AtPathologist SignaturePTH, OHYSOR48(A) 15 - 65 pg/mLTBHComment: Performed at: ?? - [facility] ??[id number] Tax Manager Public: Morgan Carpenter PhD, Phone: ??[phone] Specimen (Source)Anatomical Location / LateralityCollection Method / Volume Collection TimeReceived Time02/28/2025 11:57 AM EDT1 11:59 AM EDT Narrative [facility] - 03/01/2025 2:10 PM EDT Authorizing ProviderResult TypeResult StatusGeneric External Data Provider CLINISYNCFinal ResultPerforming OrganizationAddEagleville Hospitalty/State/ZIP CodePhone Number [facility] * (ABNORMAL) HMHP CBC WITH PLATELET NO DIFFERENTIAL (02/28/2025 11:57 AM EDT) ComponentValueRef RangeTest MethodAnalysis TimePerformed AtPathologist SignatureTBH WBC7.14.0 - 11.0 10 3/uLTBHTBH RBC4.36(L)4.70 - 6.10 10 6/uLTBH TBH HGB11.6(L)14.0 - 18.0 g/dLTBHTBH HCT38.4(L)42.0 - 54.0 %TBHTBH MCV88.180.0 - 94.0 fLTBHTBH MCH26.625.9 - 34.0 pgTBHTBH MCHC30.229.9 - 35.2 g/dLTBHT RDW 15.7(H)11.0 - 15.0 %TBHT ABZ137896 - 450 10 3/uLTBHTBH MPV10.09.5 - 13.5 fL TBHSpecimen (Source)Anatomical Location / LateralityCollection Method / Volume Collection TimeReceived Time02/28/2025 11:57 AM EDT1 11:59 AM EDT Narrative [facility] - 02/28/2025 12:08 PM EDT Authorizing ProviderResult TypeResult StatusGeneric External Data Provider CLINISYNCFinal ResultPerforming OrganizationAddressCity/State/ZIP CodePhone Number [facility] * CCF FERRITIN (02/28/2025 11:57 AM EDT)ComponentValueRef RangeTest Method Analysis TimePerformed AtPathologist DtxrntbyqJNZQIYQM05.026.0 - 388.0 ng/mL TBHSpecimen (Source)Anatomical Location / LateralityCollection Method / Volume Collection TimeReceived Time02/28/2025 11:57 AM EDT1 11:59 AM EDT Narrative [facility] - 03/02/2025 5:25 PM EDT Authorizing ProviderResult TypeResult StatusGeneric External Data Provider CLINISYNCFinal ResultPerforming OrganizationAddressCity/State/ZIP CodePhone Number [facility] * ALL URIC ACID (02/28/2025 11:57 AM EDT)ComponentValueRef RangeTest Method Analysis TimePerformed AtPathologist SignatureURIC ACID6.53.5 - 7.2 mg/dLTBH Specimen (Source)Anatomical Location / LateralityCollection Method / Volume Collection TimeReceived Time02/28/2025 11:57 AM EDT1 11:59 AM EDT Narrative [facility] - 02/28/2025 12:40 PM EDT Authorizing ProviderResult TypeResult StatusGeneric External Data Provider CLINISYNCFinal ResultPerforming OrganizationAddressCity/State/ZIP CodePhone Number [facility] * (ABNORMAL) ALL RENAL FUNCTION PANEL (02/28/2025 11:57 AM EDT)ComponentValueRef RangeTest MethodAnalysis TimePerformed AtPathologist EkrysnnpiQVDPOD776065 - 145 mmol/LTBHPOTASSIUM3.83.5 - 5.1 mmol/ASZQNADWBSLX884(H)98 - 107 mmol/LTBH [place] JKRQAWS33.921.0 - 32.0 mmol/LTBHANION GAP12.0WKUJDNGXWY25408 - 106 mg/dLTBHBLOOD UREA RDOMFYDR79.0(H)7.0 - 18.0 mg/dLTBHCREATININE2.27(H)0.70 - 1.30 mg/dLTBHTBH EGFR-AF MMKDGTCN40(L)>=60 mL/min/1.73m 2TBHTBH EGFR-NON AF RHDFVQXA24(L)>=60 mL/min/1.73m 2TBHBUN CREATININE RATIO13.4OEAYHPVPSH1.68.5 - 10.1 mg/dLTBHPHOSPHORUS3.12.6 - 4.7 mg/dLTBHALBUMIN LEVEL3.83.4 - 5.0 g/dLTBH Specimen (Source)Anatomical Location / LateralityCollection Method / Volume Collection TimeReceived Time02/28/2025 11:57 AM EDT1 11:59 AM EDT Narrative [facility] - 02/28/2025 12:40 PM EDT Authorizing ProviderResult TypeResult StatusGeneric External Data Provider CLINISYNCFinal ResultPerforming OrganizationAddressCity/State/ZIP CodePhone Number [facility] TB * ALL MAGNESIUM (02/28/2025 11:57 AM EDT)ComponentValueRef RangeTest Method Analysis TimePerformed AtPathologist SignatureMAGNESIUM2.31.8 - 2.4 mg/dLTBH Specimen (Source)Anatomical Location / LateralityCollection Method / Volume Collection TimeReceived Time02/28/2025 11:57 AM EDT1 11:59 AM EDT Narrative [facility] - 02/28/2025 12:40 PM EDT Authorizing ProviderResult TypeResult StatusGeneric External Data Provider CLINISYNCFinal ResultPerforming OrganizationAddressCity/State/ZIP CodePhone Number [facility] * (ABNORMAL) TBH URINE T PROTEIN CREAT RATIO (02/28/2025 11:34 AM EDT)Component ValueRef RangeTest MethodAnalysis TimePerformed AtPathologist SignatureTOTAL PROTEIN URINE RANDOM7.7<=11.9 mg/dLTBHCREATININE URINE DULYND60.47(L)20.00 - 300.00 mg/dLTBHPROTEIN CREATININE RATIO URINE0.47TBHSpecimen (Source) Anatomical Location / LateralityCollection Method / VolumeCollection Time Received Time02/28/2025 11:34 AM EDT1 11:59 AM EDT Narrative [facility] - 02/28/2025 12:53 PM EDT Authorizing ProviderResult TypeResult StatusGeneric External Data Provider CLINISYNCFinal ResultPerforming OrganizationAddressCity/State/ZIP CodePhone Number [facility] * (ABNORMAL) ALL HEMOGLOBIN (02/02/2025 1:01 PM EDT)ComponentValueRef RangeTest MethodAnalysis TimePerformed AtPathologist SignatureTBH HGB10.9(L)14.0 - 18.0 g/dLTBHSpecimen (Source)Anatomical Location / LateralityCollection Method / VolumeCollection TimeReceived Time02/02/2025 1:01 PM EDT02/02/2025 1:04 PM EDT Narrative [facility] - 02/02/2025 1:15 PM EDT Authorizing ProviderResult TypeResult StatusGeneric External Data Provider CLINISYNCFinal ResultPerforming OrganizationAddressCity/State/ZIP CodePhone Number [facility] from Last 3 Months Insurance Care Teams Team MemberRelationshipSpecialtyStart DateEnd Date Stanley Emerson MD [address] [place] [address] PCP - ACO Reach10/17/22 Stanley Emerson MD [address] [place] [address] PCP - GeneralFamily Medicine11/20/22 Joi Zhang LPN [address] [place] [address] 08/26/24
--- OUTSIDE RECORDS SUMMARY | 2025-03-24 13:10 | XMS_ITS | Encounter Summary ---
Author Organization [facility] Address [address] [place] [address] Care Team Providers Care Detective Captain Name Role Phone Stanley Toledo MD Unavailable [phone] Stanley Toledo MD Primary Care Provider + [phone] Dora Santiago HYDROLOGIC MODELER Unavailable Vicente Joi HYDROLOGIC MODELER Unavailable Encounter Details DateTypeDepartmentCare Team (Latest Contact Info)Cjhzjdtewak81/06/2024Clinisync Result Encounter [facility] External Department Unsolicited Provider, Generic External Data Social History Tobacco UseTypesPacks/DayYears UsedDateSmoking Tobacco: FormerCigarettes0.561.2 Started: 12/31/1963Smokeless Tobacco: NeverAlcohol UseStandard Drinks/Week CommentsNever0 (1 standard drink = 0.6 oz pure alcohol)B1300 Health Literacy AnswerDate RecordedHow often do you need to have someone help you when you read instructions, pamphlets, or other written material from your doctor or pharmacy? Idslho2412/30/2024Humiliation, Afraid, Rape, and Kick questionnaireAnswerDate RecordedWithin the [...] times a week12/31/2023How often do you attend congregational or zoroastrian services?Never12/31/2023o you belong to any clubs or organizations such as congregational groups, unions, fraShopGo or athletic groups, or school groups?No12/31/2023How often do you attend meetings of the clubs or organizations you belong to?Never12/31/2023re you , , , , never , or living with a partner?Ehuyhsw3412/31/2023 AUDIT-CAnswerDate RecordedQ1: How often do you have [...] RecordedPatient Health Questionnaire-2 Score0 05/13/2024[facility] [place] [facility] - Occupational Stress QuestionnaireAnswerDate RecordedDo you feel stress - tense, restless, nervous, or anxious, or unable to sleep at night because yourmind is troubled all the time - these days?Only a zqkiyz3012/30/2024Exercise Vital SignAnswerDate Recorded On average, how many [...] 2:00 PM Ruby August, MAPatient Health Questionnaire-2 Ljpiv33607/14/2023 2:00 PM Betty Beltran, DUSTY * QuestionAnswerDate [...] all05/13/2024 2:00 PM JENIFFERAugust, MAPatient Health Questionnaire-9 Grnlh01307/14/2023 2:00 PM Ruby, August, MA documented as of this encounter Plan of Treatment DateTypeDepartmentCare Team (Latest Contact Info)Pwrpqflkkty33/16/2025 2:00 PM ESTOffice Visit [facility] [address] [place] [address] [place] [address] Stanley Toledo MD [address] [place] [address] documented as of this encounter Procedures Procedure NamePriorityDate/TimeAssociated RvufuxxeuQvesmenkDPE66/06/2024 12:39 PM EST documented in this encounter Results * ITP (03/31/2024 12:39 PM EST)Anatomical RegionLateralityModalityOtherSpecimen (Source)Anatomical Location / LateralityCollection Method / VolumeCollection TimeReceived Time03/31/2024 12:39 PM EST Narrative 03/31/2024 8:55 PM EST [facility] ?[address] ? [place] [address] ?Cardiac Rehab Report ? Signed ? Patient: ALEX GRAJEDA ?MR#: [id number] ?? : 1945 ?Acct:[id number] ?? Age/Sex: 78 / M ?ADM Date: 03/31/24 ?? Loc: CR ? Attending Dr: MAGDY AL ? Ordering Physician: Arnol Garnica D.O. ?? Date of Service: 03/31/24 ?? Procedure(s): ITP ?? Accession Number(s): [id number] ? cc: ?[facility] ? Test Date: ?2024-03-31 ?? Pat Name: ? ALEX GRAJEDA ? Department: ? Room: ? - ?? Gender: ? Male ? Reel And Rewinder Operator: ? : ?1945 ? Requested By: ARNOL ??BALL ?? Order Number: [id number] ?Reading MD: ?? ARNOL ??BALL ? Interpretive Statements ?? Session Date: ? Electronically Signed On 03-31-2024 20:54:52 EST by ARNOL ??BALL ? Dictated By: ?Ball,Arnol D.O. ? Signed By: ?03/31/242054 ?03/31/242054 ? DD/ 1239 ? TD/TT: ? Press Operator Carbon Blocks: Procedure Note Radiology, Radiologist, - 03/31/2024 [place] [address] Cardiac Rehab Report Signed Patient: ALEX GRAJEDA R#: [id number] : 1945cct:[id number] Age/Sex: 78 / MADM Date: 03/31/24 Loc: CR Attending Dr: MAGDY AL Ordering Physician: Arnol Garnica D.O. Date of Service: 03/31/24 Procedure(s): ITP Accession Number(s): [id number] cc: [facility] Test Date: 2024-03-31 Pat Name: ALEX GRAJEDA Department: Room: - Gender: Male Reel And Rewinder Operator: : 1945 Requested By: ARNOL GARNICA Order Number: [id number] Silverio MD: ARNOL GARNICA Interpretive Statements Session Date: Electronically Signed On 03-31-2024 20:54:52 EST by ARNOL GARNICA Dictated By: Arnol Garnica D.O. Signed By:03/31/24205403/31/242054 DD/ 1239 TD/TT: Press Operator Carbon Blocks: Authorizing ProviderResult TypeResult StatusGeneric External Data Provider CLINISYNC IMAGINGFinal Result documented in this encounter Visit Diagnoses Not on filedocumented in this encounter Additional Health Concerns AssessmentNoted TimePHQ-9 Depression Total Score: 1:00 PM ESTA fall risk assessment has been completed for the nmikshu9312/31/2023 8:54 AM EDT documented as of this encounter Care Teams Team MemberRelationshipSpecialtyStart DateEnd Date Stanley Toledo MD [address] [place] [address] (Fax) PCP - ACO Reach10/17/22 Stanley Toledo MD [address] [place] [address] PCP - GeneralFamily Medicine11/20/22 Dora Santiago LPN [address] [place] [address] Licensed Practical NurseFamily Medicine Joi Zhang LPN [address] [place] [address] 08/26/24documented as of this encounter
--- OUTSIDE RECORDS SUMMARY | 2025-03-24 13:10 | XMS_ITS | Encounter Summary ---
Author Organization [facility] Address [address] [place] [address] Care Team Providers Care Resume Specialist Name Role Phone Stanley Toledo MD Unavailable [phone] Stanley Toledo MD Primary Care Provider + [phone] Dora Santiago CIGAR HEAD HOLER Unavailable Vicente Joi CIGAR HEAD HOLER Unavailable Encounter Details DateTypeDepartmentCare Team (Latest Contact Info)Rkjgtvijege19/02/2024Clinisync Result Encounter [facility] External Department Unsolicited Provider, Generic External Data Social History Tobacco UseTypesPacks/DayYears UsedDateSmoking Tobacco: FormerCigarettes0.561.2 Started: 12/31/1963Smokeless Tobacco: NeverAlcohol UseStandard Drinks/Week CommentsNever0 (1 standard drink = 0.6 oz pure alcohol)B1300 Health Literacy AnswerDate RecordedHow often do you need to have someone help you when you read instructions, pamphlets, or other written material from your doctor or pharmacy? Zyfkke8412/30/2024Humiliation, Afraid, Rape, and Kick questionnaireAnswerDate RecordedWithin the [...] times a week12/31/2023How often do you attend jehovah's witness or presybeterian services?Never12/31/2023o you belong to any clubs or organizations such as jehovah's witness groups, unions, fraLantos Technologies or athletic groups, or school groups?No12/31/2023How often do you attend meetings of the clubs or organizations you belong to?Never12/31/2023re you , , , , never , or living with a partner?Sgzzbcw9212/31/2023 AUDIT-CAnswerDate RecordedQ1: How often do you have [...] at all 12/31/2023HQ-2AnswerDate RecordedPatient Health Questionnaire-2 Score0 05/13/2024[facility] [place] of Occupational Health - Occupational Stress QuestionnaireAnswerDate RecordedDo you feel stress - tense, restless, nervous, or anxious, or unable to sleep at night because yourmind is troubled all the time - these days?Only a yueerr2512/30/2024Exercise Vital SignAnswerDate Recorded On average, how many [...] 2:00 PM Ruby August, MAPatient Health Questionnaire-2 Jdmmn79407/14/2023 2:00 PM Betty Beltran, DUSTY * QuestionAnswerDate [...] all05/13/2024 2:00 PM JENIFFERAugust, MAPatient Health Questionnaire-9 Tufds39207/14/2023 2:00 PM RubyAugust, MA documented as of this encounter Plan of Treatment DateTypeDepartmentCare Team (Latest Contact Info)Eqjwjyauuri11/16/2025 2:00 PM ESTOffice Visit [facility] [address] [place] [address] [place] [address] Stanley Toledo MD [address] [place] [address] documented as of this encounter Procedures Procedure NamePriorityDate/TimeAssociated NphfbevzkWbcpsqoiULM95/02/2024 12:19 PM EST documented in this encounter Results * ITP (04/26/2024 12:19 PM EST)Anatomical RegionLateralityModalityOtherSpecimen (Source)Anatomical Location / LateralityCollection Method / VolumeCollection TimeReceived Time04/26/2024 12:19 PM EST Narrative 04/27/2024 8:20 PM EST [facility] ?[address] ? [place] [address] ?Cardiac Rehab Report ? Signed ? Patient: ALEX GRAJEDA ?MR#: [id number] ?? : 1945 ?Acct:[id number] ?? Age/Sex: 78 / M ?ADM Date: 04/26/24 ?? Loc: CR ? Attending Dr: MAGDY AL ? Ordering Physician: Arnol Garnica D.O. ?? Date of Service: 04/26/24 ?? Procedure(s): ITP ?? Accession Number(s): [id number] ? cc: ?[facility] ? Test Date: ?2024-04-26 ?? Pat Name: ? ALEX GRAJEDA ? Department: ? Room: ? - ?? Gender: ? Male ? Journeyman Power Plant Operator: ? : ?1945 ? Requested By: ARNOL ??BALL ?? Order Number: [id number] ?Reading MD: ?? ARNOL ??BALL ? Interpretive Statements ?? Session Date: ? Electronically Signed On 04-27-2024 20:20:06 EST by ARNOL ??BALL ? Dictated By: ?Ball,Arnol D.O. ? Signed By: ?04/27/24 2020 ?04/27/24 2020 ? DD/ 1219 ? TD/TT: ? Drum Reel Cutter: Procedure Note Radiology, RadiologistMD - 04/27/2024 [place] [address] Cardiac Rehab Report Signed Patient: ALEX GRAJEDA R#: [id number] : 1945cct:[id number] Age/Sex: 78 / MADM Date: 04/26/24 Loc: CR Attending Dr: MAGDY AL Ordering Physician: Arnol Garnica D.O. Date of Service: 04/26/24 Procedure(s): ITP Accession Number(s): [id number] cc: [facility] Test Date: 2024-04-26 Pat Name: ALEX GRAJEDA Department: Room: - Gender: Male Journeyman Power Plant Operator: : 1945 Requested By: ARNOL GARNICA Order Number: [id number] Silverio CASILLAS: ARNOL GARNICA Interpretive Statements Session Date: Electronically Signed On 04-27-2024 20:20:06 EST by ARNOL GARNICA Dictated By: Arnol Garnica D.O. Signed By:04/27/24201904/27/242019 DD/ 121 TD/TT: Drum Reel Cutter: Authorizing ProviderResult TypeResult StatusGeneric External Data Provider CLINISYNC IMAGINGFinal Result documented in this encounter Visit Diagnoses Not on filedocumented in this encounter Additional Health Concerns AssessmentNoted TimePHQ-9 Depression Total Score: 1:00 PM ESTA fall risk assessment has been completed for the qvkupdp6712/31/2023 8:54 AM EDT documented as of this encounter Care Teams Team MemberRelationshipSpecialtyStart DateEnd Date Stanley Toledo MD [address] [place] [address] PCP - ACO Reach10/17/22 Stanley Toledo MD [address] [place] [address] PCP - GeneralFamily Medicine11/20/22 Dora Santiago LPN [address] [place] [address] Licensed Practical NurseFamily Medicine Joi Zhang LPN [address] [place] [address] 08/26/24documented as of this encounter
--- OUTSIDE RECORDS SUMMARY | 2025-03-24 13:10 | XMS_ITS | Encounter Summary ---
Author Organization [facility] Address [address] [place] [address] Care Team Providers Care R And D Lab Technician Name Role Phone Stanley Toledo MD Unavailable [phone] Stanley Toledo MD Primary Care Provider + [phone] Dora Santiago MATERIALS TECHNICIAN Unavailable Vicente Joi MATERIALS TECHNICIAN Unavailable Encounter Details DateTypeDepartmentCare Team (Latest Contact Info)Bfutwpmlmiv06/31/2024Clinisync Result Encounter [facility] External Department Unsolicited Provider, Generic External Data Social History Tobacco UseTypesPacks/DayYears UsedDateSmoking Tobacco: FormerCigarettes0.561.2 Started: 12/31/1963Smokeless Tobacco: NeverAlcohol UseStandard Drinks/Week CommentsNever0 (1 standard drink = 0.6 oz pure alcohol)B1300 Health Literacy AnswerDate RecordedHow often do you need to have someone help you when you read instructions, pamphlets, or other written material from your doctor or pharmacy? Afztrf1512/30/2024Humiliation, Afraid, Rape, and Kick questionnaireAnswerDate RecordedWithin the [...] times a week12/31/2023How often do you attend jew or gnosticist services?Never12/31/2023o you belong to any clubs or organizations such as jew groups, unions, fraInforcePro or athletic groups, or school groups?No12/31/2023How often do you attend meetings of the clubs or organizations you belong to?Never12/31/2023re you , , , , never , or living with a partner?Ebmahey3912/31/2023 AUDIT-CAnswerDate RecordedQ1: How often do you have [...] at all 12/31/2023HQ-2AnswerDate RecordedPatient Health Questionnaire-2 Score0 05/13/2024[facility] [place] of Occupational Health - Occupational Stress QuestionnaireAnswerDate RecordedDo you feel stress - tense, restless, nervous, or anxious, or unable to sleep at night because yourmind is troubled all the time - these days?Only a mczand1412/30/2024Exercise Vital SignAnswerDate Recorded On average, how many [...] Plan of Treatment DateTypeDepartmentCare Team (Latest Contact Info)Yfnancqzzpo05/16/2025 2:00 PM ESTOffice Visit [facility] [address] [place] [address] Stanley Toledo MD [address] [place] [address] documented as of this encounter Procedures Procedure NamePriorityDate/TimeAssociated PyqifcntmQqiybqecQLW53/31/2024 7:54 AM EST documented in this encounter Results * ITP (05/25/2024 7:54 AM EST)Anatomical RegionLateralityModalityOtherSpecimen (Source)Anatomical Location / LateralityCollection Method / VolumeCollection TimeReceived Time05/25/2024 7:54 AM EST Narrative 05/26/2024 8:06 AM EST [facility] ?[address] ? [place] [address] ?Cardiac Rehab Report ? Signed ? Patient: GRAJEDA,ALEX H ?MR#: [id number] ?? : 1945 ?Acct:[id number] ?? Age/Sex: 78 / M ?ADM Date: 12/31/24 ?? Loc: CR ? Attending Dr: MAGDY AL ? Ordering Physician: Arnol Garnica D.O. ?? Date of Service: 05/25/24 ?? Procedure(s): ITP ?? Accession Number(s): [id number] ? cc: ?[facility] ? Test Date: ?2024-05-25 ?? Pat Name: ? ALEX GRAJEDA ? Department: ? Room: ? - ?? Gender: ? Male ? Photo Colorer: ? : ?1945 ? Requested By: ARNOL ??BALL ?? Order Number: [id number] ?Reading MD: ?? ARNOL ??BALL ? Interpretive Statements ?? Session Date: ? Electronically Signed On 05-26-2024 8:06:21 EST by ARNOL ??BALL ? Dictated By: ?Arnol Garnica D.O. ? Signed By: ?05/26/24 0806 ?05/26/24 08 ? DD/ 0754 ? TD/TT: ? Admissions Manager: Procedure Note Radiology, Radiologist, MD - 05/26/2024 [place] [address] Cardiac Rehab Report Signed Patient: ALEX GRAJEDA R#: [id number] : 4Acct:[id number] Age/Sex: 78 / MADM Date: 05/25/24 Loc: CR Attending Dr: MAGDY AL Ordering Physician: Arnol Garnica D.O. Date of Service: 05/25/24 Procedure(s): ITP Accession Number(s): [id number] cc: [facility] Test Date: 2024-05-25 Pat Name: ALEX GRAJEDA Department: Room: - Gender: Male Photo Colorer: : 1945 Requested By: ARNOL GARNICA Order Number: [id number] Silverio MD: ARNOL GARNICA Interpretive Statements Session Date: Electronically Signed On 05-26-2024 8:06:21 EST by ARNOL GARNICA Dictated By: Arnol Garnica D.O. Signed By:05/26/24 0806 05/26/24 08 DD/ 075 TD/TT: Admissions Manager: Authorizing ProviderResult TypeResult StatusGeneric External Data Provider CLINISYNC IMAGINGFinal Result documented in this encounter Visit Diagnoses Not on filedocumented in this encounter Additional Health Concerns AssessmentNoted TimePHQ-9 Depression Total Score: 2:00 PM ESTA fall risk assessment has been completed for the halwnvl8112/31/2023 8:54 AM EDT documented as of this encounter Care Teams Team MemberRelationshipSpecialtyStart DateEnd Date Stanley Toledo MD [address] [place] [address] (Fax) PCP - ACO Reach10/17/22 Stanley Toledo MD [address] [place] [address] (Fax) PCP - GeneralFamily Medicine11/20/22 Dora Santiago LPN [address] [place] [address] Licensed Practical NurseFamily Medicine Joi Zhang LPN [address] [place] [address] 08/26/24documented as of this encounter
--- OUTSIDE RECORDS SUMMARY | 2025-03-24 13:10 | XMS_ITS | Encounter Summary ---
Author Organization [facility] Address [address] [place] [address] Care Team Providers Care Director School Of Nursing Name Role Phone Stanley Toledo MD Unavailable [phone] Stanley Toledo MD Primary Care Provider + [phone] Dora Santiago GROUND INSTRUCTOR BASIC Unavailable Vicente Joi GROUND INSTRUCTOR BASIC Unavailable Encounter Details DateTypeDepartmentCare Team (Latest Contact Info)Fsnqvaydcra64/29/2024Clinisync Result Encounter [facility] External Department Unsolicited Provider, Generic External Data Social History Tobacco UseTypesPacks/DayYears UsedDateSmoking Tobacco: FormerCigarettes0.561.2 Started: 12/31/1963Smokeless Tobacco: NeverAlcohol UseStandard Drinks/Week CommentsNever0 (1 standard drink = 0.6 oz pure alcohol)B1300 Health Literacy AnswerDate RecordedHow often do you need to have someone help you when you read instructions, pamphlets, or other written material from your doctor or pharmacy? Xunmve1712/30/2024Humiliation, Afraid, Rape, and Kick questionnaireAnswerDate RecordedWithin the [...] week12/31/2023How often do you attend congregational or temple services?Never12/31/2023o you belong to any clubs or organizations such as congregational groups, unions, fraNextMusic.TV or athletic groups, or school groups?No12/31/2023How often do you attend meetings of the clubs or organizations you belong to?Never12/31/2023re you , , , , never , or living with a partner?Jvotmde4212/31/2023 AUDIT-CAnswerDate RecordedQ1: How often do you have [...] 12/31/2023HQ-2AnswerDate RecordedPatient Health Questionnaire-2 Score0 05/13/2024[facility] [place] of Occupational Health - Occupational Stress QuestionnaireAnswerDate RecordedDo you feel stress - tense, restless, nervous, or anxious, or unable to sleep at night because yourmind is troubled all the time - these days?Only a ybalwf4512/30/2024Exercise Vital SignAnswerDate Recorded On average, how many [...] homeless or living in a jail (including now)?No12/31/2023Sex and Gender InformationValueDate RecordedSex Assigned [...] 2:00 PM Ruby August, MAPatient Health Questionnaire-2 Iplzs28507/14/2023 2:00 PM Betty Beltran, DUSTY * QuestionAnswerDate [...] all05/13/2024 2:00 PM JENIFFERAugust, MAPatient Health Questionnaire-9 Dpoys46407/14/2023 2:00 PM Ruby, August, MA documented as of this encounter Plan of Treatment DateTypeDepartmentCare Team (Latest Contact Info)Lsffawdxmcy03/16/2025 2:00 PM ESTOffice Visit [facility] [address] [place] [address] [place] [address] Stanley Toledo MD [address] [facility] [address] [place] [address] documented as of this encounter Procedures Procedure NamePriorityDate/TimeAssociated DiagnosisCommentsRT PULMONARY FUNCTION TEST03/23/2024 12:59 PM EDT documented in this encounter Results * RT PULMONARY FUNCTION TEST (03/23/2024 12:59 PM EDT)Anatomical Region LateralityModalityOtherSpecimen (Source)Anatomical Location / Laterality Collection Method / VolumeCollection TimeReceived Time03/23/2024 12:59 PM EDT Narrative 03/24/2024 5:50 PM EDT [facility] ?[address] ? [place] [address] ? Respiratory Report ? Signed ? Patient: ALEX GRAJEDA ?MR#: [id number] ?? : 1945 ?Acct:[id number] ?? Age/Sex: 78 / M ?ADM Date: 03/23/24 ?? Loc: CARD ? Attending Dr: MAGDY AL ? Ordering Physician: MAGDY AL ?? Date of Service: 03/23/24 ?? Procedure(s): RT pulmonary function test ?? Accession Number(s): [id number] ? cc: ?[facility] ? Test Date: ?2024-03-23 ?? Pat Name: ? ALEX GRAJEDA ? Department: ? Room: ? - ?? Gender: ? Male ? Health Advocate: ?? Reymundo Alamo, ASSOCIATE PROFESSOR OF MATHEMATICS ?? : ?1945 ? Requested By: 358 ?? Order Number: [id number] ?Reading MD: ?? Aayush Gallo ? Interpretive [...] 1750 ? DD/ 1259 ? TD/TT: ? Senior Net Web Developer: Procedure Note Radiology, Radiologist, - 03/24/2024 [place] [address] Respiratory Report Signed Patient: ALEX GRAJEDA HMR#: [id number] : 1945cct:[id number] Age/Sex: 78 / MADM Date: 03/23/24 Loc: CARD Attending Dr: MAGDY AL Ordering Physician: MAGDY AL Date of Service: 03/23/24 Procedure(s): RT pulmonary function test Accession Number(s): [id number] cc: [facility] Test Date: 2024-03-23 Pat Name: ALEX GRAJEDA Department: Room: - Gender: Male Health Advocate: Reymundo Alamo RRT : 1945 Requested By: 358 Order Number: [id number] Reading MD: Aayush Gallo Interpretive Statements Pulmonary [...] Dictated By: Aayush Gallo D.O. Signed By:03/24/24 2914 DD/ 1259 TD/TT: Senior Net Web Developer: Authorizing ProviderResult TypeResult StatusGeneric External Data Provider CLINISYNC IMAGINGFinal Result documented in this encounter Visit Diagnoses Not on filedocumented in this encounter Additional Health Concerns AssessmentNoted TimePHQ-9 Depression Total Score: 1:00 PM ESTA fall risk assessment has been completed for the ibrwnlv2412/31/2023 8:54 AM EDT documented as of this encounter Care Teams Team MemberRelationshipSpecialtyStart DateEnd Date Stanley Toledo MD [address] [place] [address] PCP - ACO Reach10/17/22 Stanley Toledo MD [address] [facility] [address] [place] [address] PCP - GeneralFamily Medicine11/20/22 Dora Santiago LPN [address] [place] [address] Licensed Practical NurseFamily Medicine Joi Zhang LPN [address] [place] [address] 08/26/24documented as of this encounter
--- OUTSIDE RECORDS SUMMARY | 2025-03-24 13:10 | XMS_ITS | Encounter Summary ---
Author Organization [facility] Address [address] [place] [address] Phone Care Team Providers Care Physician Practice Administrator Name Role Phone Stanley Toledo MD Primary Care Provider [phone] Ruby Vickers MD Unavailable Encounter Details DateTypeDepartmentCare Team (Latest Contact Info)Crizjcnufgz27/28/2025Scanned Document [facility] [address] [place] [address] Scanning, Generic Provider Social History Tobacco UseTypesPacks/DayYears UsedDateSmoking Tobacco: FormerCigarettes Smokeless Tobacco: NeverAlcohol UseStandard Drinks/WeekCommentsNever0 (1 standard drink = 0.6 oz pure alcohol)Sex and Gender InformationValueDate RecordedSex Assigned at BirthNot on fileLegal EkcDlld37/29/2022 5:17 PM EST Gender IdentityNot on fileSexual OrientationNot on filedocumented as of this encounter Plan of Treatment DateTypeDepartmentCare Team (Latest Contact Info)Pjpgusznoiq95/04/2025 11:00 AM ESTOffice Visit [facility] [address] [facility] [address] [place] [address] Teo Stokes MD [address] [facility] [address] [place] [address] documented as of this encounter Procedures Procedure NamePriorityDate/TimeAssociated DiagnosisCommentsOUTSIDE IMAGING SCAN 03/22/2025 documented in this encounter Results * OUTSIDE IMAGING SCAN (03/22/2025)Anatomical RegionLateralityModalityOther [...] Date Stanley Toledo MD [address] [place] [phone] PCP - Qvxkeuw19/23/22 Ruby Vickers MD [address] [facility] [address] [place] [address] CardiologistElectrophysiology10/04/24documented as of this encounter
--- OUTSIDE RECORDS SUMMARY | 2025-03-24 13:30 | XMS_ITS | CCD ---
Author Organization [facility] CliniSywa Care Team Providers Care Oil Expeller Operator Name Role Phone Stanley Emerson Unavailable Unavailable Unavailable STANLEY EMERSON Primary Care Physician Unavail able MD Stanley Emerson Primary Care Provider MD Taz Banres Admit Provider MD Margarito Valetnine Other Provider MD Janice Gonzalez Other Provider DO Bernabe Cr Attending Provider [phone] MD Margarito Valentine Attending Provider MD Margarito Valentine Admit Provider Celia Griffin Unavailable Margarito Valentine [phone] MOOM Omalley Attending Provider MD Stanley Emerson Primary Care Provider MD Taz Barnes Admit Provider MD Margarito Valentine Other Provider MD Janice Gonzalez Other Provider DO Bernabe Cr Attending Provider MD Margarito Valentine Attending Provider [phone] MD Margarito Valentine Admit Provider MOMO Omalley [...] Araceli vailable Idania, Dr. Stanley Mercado Primary [facility] Unava ilable Hemeyer, Dr. Stanley Mercado Primary [facility] Unava ilable Hemeyer, Dr. Stanley Mercado Primary [facility] Unava ilable Al, Dr. Teo Poon Attending Araceli vailable Al, Dr. Teo Poon Referring Araceli vailable Hemeyer, Dr. Stanley Mercado [facility] Unava ilable Hemeyer, Dr. Stanley Mercado [facility] Unava ilable Al, Dr. Teo Poon Referring Araceli vailable Al, Dr. Teo Poon Attending Araceli vailable Al, Dr. Teo Poon Attending Araceli vailable Hemeyer, Dr. Stanley Mercado [facility] Unava ilable Hemeyer, Dr. Stanley Mercado Primary Care Unava lucille Al, Dr. Teo Poon Attending Araceli vailable Divya, Dr. Teo Poon Attending Araceli vailable Idania, Dr. Stanley Mercado Primary Care Araceliva MD Stanley Gomez Primary Care Provider MD Celia Griffin Attending Provider MD Teo Al Referring Provider [phone] MD Stanley Emerson Primary Care Provider [phone] MD Margarito Valentine Attending Provider MD Stanley Emerson Primary Care Provider [phone] MD Teo Al Attending Provider MD Willy Lambert Attending Provider DO Nas Pruett Admit Provider DO Nas Pruett Attending Provider MD Myesha Feliz Other Provider MD Rogelio Rai Other Provider WATSON Truong Other Provider DO Mckay Yeboah Jr Other Provider [phone] MD Ryley Hoyt Other Provider ROCIO Randle Other Provider Unavailable ROCIO Alvarez Other Provider Unavailable ROCIO Delgado Other Provider Unavailable ROCIO Rogel Other Provider Unavailable ROCIO Li Other Provider Unavailable MD Radha Berrios Other Provider DO Khanh Deluca Other Provider [phone] MD Ronald Martinez Other Provider [phone] DO Bernabe Cr Other Provider MD Jerrell Gonsales Other Provider MD Mary Ellen Zambrano Other Provider MD Anand Mckenzie Other Provider Unavailable WATSON Velasco Other Provider MD Jagjti Swenson Other Provider [phone] MD Pawel [...] Primary Care Provider Stanley Emerson MD Unavailable [phone] Stanley Emerson MD Primary Care Provider [phone] Black VBA PROGRAMMER, Dora Unavailable WATSON Bailey Attending Provider [phone] WATSON Truong Other Provider Stanley Emerson MD Unavailable [phone] Stanley Emerson MD Primary Care Provider Stanley Emerson MD Unavailable Stanley Emerson MD Primary Care Provider Stanley Emerson MD Primary Care Provider Stanley Emerson MD Primary Care Provider Teo Al MD Attending Provider Blanca Boles Attending Unavailable Katia SAMUELS Attending Unavailable MOMO OMALLEY Attending Unavailab MOMO Kruger Attending Unavailab MOMO Kruger Attending Unavailab Katia Fong Admitting Unavailable aKtia SAMUELS Attending Unavailable Fabi Gomez Attending Unavailable Zhang VBA PROGRAMMER, Joi Unavailable Unavailable Black VBA PROGRAMMER, Dora Unavailable Talya Bo MD Attending Provider Stanley Emerson MD Primary Care Provider Katia SAMUELS Attending Unavailable Fabi Gomez Attending Unavailable Blanca Boles Attending Unavailable Blanca Boles Attending Unavailable Fabi Gomez Attending Unavailable Katia SAMUELS Attending Unavailable Katia SAMUELS Admitting Unavailable Katia SAMUELS Attending Unavailable BONI TARVALE Referring Unavailable STANLEY EMERSON Primary Care [...] Unavailable Stanley Emerson MD Primary Care Provider [phone] Margarito Valentine MD Attending Provider [phone] Joi Zhang LPN Unavailable Stanley Emerson Primary [...] Unavailable Idania, Stanley Rich Primary Care Unavailable Rosalie Bailey Attending Unavailable [...] Idania CASILLAS, Stanley Rich Primary Care Provider [phone] Celia Griffin MD Attending Provider [phone] Blanca Boles Attending Unavailable Eboni Anderson Attending [...] Unavailable STANLEY EMERSON Primary Care Unavailable Black VBA PROGRAMMER, Dora Unavailable Christina Goddard LPN Unavailable Unavailable Allergies Allergy ClassificationReported Allergen(s)Allergy TypeDate of OnsetReaction(s) Facility (4 sources)No Known Medication Allergies; Translations: [No Known Medication Allergies]Propensity to adverse reactions (disorder)[facility] Medications Current Medications MedicationDrug Class(es)DatesSig (Normalized)Sig (Original)Acetaminophen (4 sources)Start: 87-11-3766bbhlfdbnqzhwz (TYLENOL) tablet 650 mgtake 2 tablets by mouth every eight hoursAcetaminophen ER 650 MG 2 tablets as needed Orally every 8 hrs Activeacetaminophen 325 mg / HYDROcodone bitartrate 7.5 mg oral tablet (2 sources)Opioid AgonistStart: 93-07-5656bvth 1 tablet by mouth once, then take 1 tablet by mouth every hourNorco 325 mg-7.5 mg oral tablet 1 tab(s), Oral, Once, 1 tab(s), Refill(s) 0, Take 1 hour prior to procedure, [facility]/pharmacy #[id number], 187, cm, 03/11/23 13:44:00 EDT, Height/Length Dosing, 93, kg, 03/11/2313:44:00 EDT, Weight Dosing Start Date: 05/06/23 Status: [id number] 200 actuat albuterol 0.09 mg/actuat metered dose inhaler (20 sources)beta2-Adrenergic AgonistStart: 93-35-8095tmnu 2 puff(s) by inhalation every six hours as needed for wheezingalbuterol sulfate HFA (PROVENTIL;VENTOLIN;PROAIR) 108 (90 Base) MCG/ACT inhaler Inhale 2 puffs intothe lungs every 6 hours as needed for Wheezing or Shortness of Breath 18 g 10/05/2024 ActiveStart: .5 mg, Nebulization, EVERY 6 HOURS PRN, Starting on 10/02/24 at 1102, Until Discontinued, Wheezing, Initiate RT Bronchodilator Protocol: Yes - Inpatient ProtocolStart: 94-92-0372olfd 1 puff(s) by inhalation every six hours as needed for wheezingAlbuterol Sulfate 90 mcg/actuation HFA aerosol inhaler Active 2 PUFF INHALATION Every 6 hours as nee ded for shortness of breath or wheezing October 22, 2023 12:00am Complies with drug therapyStart: 09-30-2023 End: 19-85-2374rqjp 2 puff(s) by inhalation every six hours for wheezing albuterol HFA 90 mcg/act inhaler Indications: Simple chronic bronchitis (HCC) Inhale 2 puffs every 6 (six) hours if needed for wheezing 54 g 1 09/30/2023 ActiveStart: 32-02-6605peug 2 puff(s) by inhalation every four hoursalbuterol 90 mcg/actuation inhaler Inhale 2 puffs every 4 hours if needed. 12/17/2022 Active Start: 78-78-9254Umygwrgtx Sulfate HFA 108 (90 Base) MCG/ACT Inhalation Aerosol Solution Quantity: 54 Refills: 0 Ordered: 03-Jun-2022 DO Start : 03-Jun-2022 ActiveStart: 05-16-2022 End: 73-32-8849arwo 1 puff(s) by inhalation three times daily [...] HFA) 90 mcg/inh inhalation aerosol (20 sources)Start: 52-42-3964Ktfmbbrze (Eqv-ProAir HFA) 90 mcg/inh inhalation aerosol Refill(s) 0 Start Date: 06/10/22 Status: Ordered Repeat number: 1Start: 97-76-1455Alizmjetv (Eqv-ProAir HFA) 90 mcg/inh inhalation aerosol Refill(s) 0 Start Date: 06/10/22 Status: Orderedamiodarone hydrochloride 200 mg oral tablet (20 sources)AntiarrhythmicStart: 02-10-2024 End: 29-33-8710zwoveekwyq 200 mg Tab 200 mg = 1 tab(s), Refills(s) 0 Start Date: 04/06/24 Status: Ordered Repeat number: 1Start: 01-23-2024 End: 21-35-8043leae 1 tablet by mouth twice dailyAmiodarone 200 mg Tablet Discontinued 200 MG PO Twice daily January 23, 2024 12:00am 2023 12:52pmamLODIPine 5 mg oral tablet (20 sources)Dihydropyridine Calcium Channel BlockerStart: 80-00-7454luai 5 mg by mouth twice dailyamlodipine 5 mg, Oral, BID, Refills(s) 0 Start Date: 04/06/24 Status: Ordered Repeat number: 1Start: 12-31-2023 End: 26-59-4387pcik 1 tablet by mouth once dailyAmlodipine 5 mg tablet Discontinued 5 MG PO Daily December 31, 2023 12:00am January 23, 2024 2:59pm Start: 06-10-2023 End: 73-51-6944aypp 1 tablet by mouth twice dailyAmlodipine 5 mg tablet Discontinued 5 MG PO Twice daily October 22, 2023 12:00am November 14, 2023 9:36am Start: 57-59-3111uzqe 1 tablet by mouth every twelve hoursNorvasc 5 MG 1 tablet Orally bid for 90 days Mar, ActiveStart: 90-16-5115fumf 1 tablet by mouth every twenty-four hoursNorvasc 5 MG 1 tablet Orally Once a day for 90 days Mar, Activeapixaban 2.5 mg oral tablet (20 sources)Factor Xa InhibitorStart: 01-23-2024 End: 72-38-8637Fhwycwj 2.5 mg oral tablet Refills(s) 0 Start Date: 04/06/24 Status: Ordered Repeat number: 1atorvastatin 80 mg oral tablet (20 sources)HMG-CoA Reductase InhibitorStart: 79-34-2917svpm 1 tablet by mouth at bedtimeatorvastatin (Lipitor) 80 MG tablet Take 80 mg by mouth at bedtime 01/16/2024 Activecephalexin 250 mg oral capsule (20 sources)Cephalosporin AntibacterialStart: 67-16-2976mokh 1 capsule by mouth three times weeklycephalexin (Keflex) 250 MG capsule Take 250 mg by mouth 3 (three) times a week On Friday, Friday, Friday10/22/2024 ActiveStart: 77-42-4821qeyj 1 capsule by mouth once dailyKeflex 500 mg Cap 500 mg = 1 cap(s), Oral, Daily, Take 1 capsule the day before the procedure and 1capsule after the procedure, # 2 cap(s), Refills(s) 0, Pharmacy: [facility]/pharmacy #[id number], 187, cm, 07/15/24 10:46:00 EST, Height/Length Dosing, 93, kg, 07/15/24 10:46:00 EST, Weight Dosing Start Date: 09/24/24 Status: Ordered Quantity: 2.0 Unit: cap(s) Repeat number: 1Start: 09-09-2024 End: 68-60-6797Pmxfbb 250 mg Cap 250 mg = 1 cap(s), Oral, MonWedFri, X 30 day(s), # 13 cap(s), Refills(s) 11, Pharmacy: [facility]/pharmacy #[id number], 187, cm, 07/15/24 10:46:00 EST, Height/Length Dosing, 93, kg, 07/15/24 10:46:00 EST, Weight Dosing Start Date: 09/09/24 Stop Date: 09/04/25 Status: Ordered Quantity: 13.0 Unit:cap(s) Repeat number: 12Start: 28-46-2451ifvk 1 capsule by mouth once dailyKeflex 250 mg Cap 250 mg = 1 cap(s), Oral, Daily, # 30 cap(s), Refills(s) 1, Pharmacy: [facility]/pharmacy#[id number], 187, cm, 07/15/24 10:46:00 EST, Height/Length Dosing, 93, kg, 07/15/24 10:46:00 EST, Weight Dosing Start Date: 07/15/24 Status: OrderedStart: 06-22-2024 End: 00-41-3595uvlj 1 capsule by mouth in the morningcephalexin (Keflex) 250 mg capsule Take 1 capsule (250 mg) by mouth early in the morning.. 07/18/2024 10/08/2024 Discontinued (Med List Cleanup)Start: 04-28-2024 End: 49-75-9800upjp 1 capsule by mouth in the morning, then take 1 capsule by mouth in the evening, then take 1 capsule by mouth at bedtimecephalexin (Keflex) 500 MG capsule Take 500 mg by mouth in the morning and 500 mg in the evening and 500 mg before bedtime. 04/28/2024 05/13/2024 Discontinued (Therapy completed) Start: 24-47-3397ydqp 1 mg by mouth every twelve hoursKeflex 500 mg Cap mg cap(s), Oral, q12hr, Refills(s) 0 Start Date: 10/03/23 Status: Ordered End: 55-78-4802tkhq 1 capsule by mouth three times dailycephalexin (Keflex) 500 mg capsule Take 1 capsule (500 mg) by mouth 3 times a day. 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 Patient will take 4 tablets ( 300mg) one time only, then will take one tablet daily 90 tablet 3 03/05/2024 Activedonepezil hydrochloride 10 mg oral tablet (18 sources)Start: 11-19-2024 End: 35-07-7477zhiw 2 tablets by mouth at bedtimedonepezil (Aricept) 10 MG tablet Indications: 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 disturbance, psychotic disturbance, mood disturbance, or anxiety (HCC) Take 2 tablets (20 mg) by mouth at bedtime 11/19/2024 05/18/2025 ActiveStart: 10-22-2024 End: 07-66-1767iqlc 1 tablet by mouth once daily at bedtimedonepezil 10 mg Tab 10 mg = 1 tab(s), Oral, Once a day (at bedtime) Start Date: 11/16/24 Status: Jefferybell red Repeat number: 11 ml enoxaparin sodium 100 mg/ml prefilled syringe (1 source)Low Molecular Weight HeparinStart: 12-64-4163vyxtxhcpeh (Lovenox) 100 mg/mL syringe Indications: Cardiomyopathy, ischemic [...] 3 each 10/08/2024 ActiveFerric Carboxymaltose (3 sources)Start: 88-34-6061qcqbwh 100 mg intravenously every weekStart: 11-02-2024 End: 17-51-5578bekdcb 100 mg intravenously every weekFerric Carboxymaltose (Injectafer) 100 mg iron/2 mL solution Discontinued 750 MG IV Q7D November 02, 025 12:00am December 06, 2024 4:11pmStart: 41-91-9599pwvbhw 100 mg intravenously every weekFerric Carboxymaltose (Injectafer) 100 mg iron/2 mL solution Active 750 MG IV Q7D November 02, 2024 12:00amferrous sulfate 325 mg oral tablet (20 sources)Start: 85-33-5497lcam 325 mg by mouth once daily at njoynqowt034 mg, Oral, DAILY WITH BREAKFAST, First dose (after last modification) on Fri10/06/24 at 0800, Until DiscontinuedStart: 08-11-2024 End: 98-32-6866fspq 1 tablet by mouth twice dailyFerrous Sulfate 325 mg (65 mg iron) tablet Active 325 MG PO Twice daily 180 November 29, 2024 4:34pm Complies with drug therapyStart: 61-72-4124jgnt 1 tablet by mouth once dailyferrous sulfate (as elemental iron) 45 mg oral tablet, extended release 45 mg = 1 tab(s), Oral, Daily, # 30 tab(s), Refills(s) 0 Start Date: 03/02/24 Status: Ordered Quantity: 30.0 Unit: tab(s) Repeatnumber: 1Start: 10-22-2023 End: 14-07-6436urtm 1 tablet by mouth once dailyFerrous Sulfate 142 mg (45 mg iron) tablet extended release Discontinued 142 MG PO Daily October 22, 2023 12:00am August 11, 2024 10:37amtake 1 tablet by mouth at mealtimeferrous sulfate 325 (65 Fe) MG tablet Take 325 mg by mouth in the morning. Take with meals. Activefexofenadine hydrochloride 180 mg oral tablet (1 source)Histamine-1 Receptor Antagonisttake 1 tablet by mouth once daily fexofenadine (Pham) 180 MG tablet Take 180 mg by mouth Daily ActiveFIBER ADULT GUMMIES PO (20 sources)take 2 tablets by mouth once dailyFIBER ADULT GUMMIES PO Take 2 tablets by mouth Daily Activefurosemide 40 mg oral tablet (20 sources)Loop DiureticStart: 05-03-2024 End: 07-50-4725szrw 1 tablet by mouth once dailyFurosemide 40 mg tablet Active 0 .ROUTE .COMPLEX 90 January 02, 2025 2:55pm TAKE 1 TABLET BY MOUTHEVERY DAY Complies with drug therapyStart: 02-04-2024 End: 82-31-9474lxch 1 tablet by mouth in the morningfurosemide (Lasix) 40 MG tablet Take 40 mg by mouth in the morning. 02/04/2024 Activeinulin 2000 mg chewable tablet (12 sources)Start: 72-83-7912sryi 1 tablet by mouth once dailyInulin (Fiber Gummies) 2 gram tablet,chewable Active 2 GM PO Daily December 31, 2023 12:00am Complies with drug tjitlcf29 ml magnesium sulfate 40 mg/ml injection (1 [...] (20 sources)Thyroid Hormone Synthesis InhibitorStart: 07-15-2024 End: 24-56-5241vybc 1 tablet by mouth in the morningmethIMAzole (Tapazole) 5 MG tablet Take 1 tablet (5 mg) by mouth in the morning and 1 tablet (5 mg)before bedtime. 60 tablet 11 07/29/2024 07/29/2025 ActiveStart: 05-24-2024 End: 30-46-5849jauq 2.5 mg by mouth in the morningmethIMAzole (Tapazole) 5 MG tablet Take 2.5 mg by mouth in the morning and 2.5 mg in the evening. 05/24/2024 08/03/2024 Discontinued (Dose adjustment)Start: 05-24-2024 End: 50-64-3369wshe 0.5 tablet by mouth twice dailymethIMAzole (Tapazole) 5 mg tablet Indications: High risk medication use , Hyperthyroidism Take 0.5tablets (2.5 mg) by mouth 2 times a day. 90 tablet 3 05/24/2024 07/29/2024 Discontinued (Reorder)metoprolol tartrate 25 mg oral tablet (20 sources)beta-Adrenergic BlockerStart: 44-96-9877kzfd 25 mg by mouth once dailymetoprolol 25 mg, Oral, Daily, Refills(s) 0 Start Date: 07/15/24 Status: Ordered Repeat number: 1Start: 05-21-2024 End: 33-75-4696mgvu 1 tablet by mouth every twenty-four hours in the morning metoprolol succinate XL (Toprol-XL) 25 MG 24 hr tablet Take 25 mg by mouth in the morning. 05/21/2024 05/21/2025 ActiveStart: 05-21-2024 End: 00-75-3777orfw 1 tablet by mouth once dailyMetoprolol Succinate 25 mg tablet extended release 24 hr Active 25 MG PO Daily August 11, 2024 12:00am Complies with drug therapyStart: 89-17-9578Ualaflggyc tartrate 50 mg Tab Refills(s) 0 Start Date: 06/10/22 Status: OrderedStart: 05-16-2022 End: 66-85-9656dzmu 1 tablet by mouth twice dailyMetoprolol Tartrate [...] mouth once daily. ActiveMultivitamin preparation (20 sources)Start: 60-10-9573linf 1 tablet by mouth once dailyMultivitamin Active 1 TAB PO Daily October 22, 2023 12:00amStart: 86-84-1895fgwksnczngeh Daily, Refill(s) 0 Start Date: 07/31/22 Status: Ordered Repeat number: 1Start: 07-31-2022 multivitamin Daily, Refill(s) 0 Start Date: 3/8/23 Status: OrderedMultivitamin ActiveMultivitamin tablet (7 sources)Start: 25-99-0617cibg 1 tablet by mouth once dailyMultivitamin tablet Active 1 TAB PO Daily October 22, 2023 12:00am Complies with drug therapyStart: 44-85-7993wiyx 1 tablet by mouth once dailyMultivitamin tablet Active 1 TAB PO Daily October 22, 2023 12:00amnitroglycerin 0.4 mg sublingual tablet (20 sources)Nitrate VasodilatorStart: 21-87-8731gventdornuekb (Nitrostat) 0.[address] 0.4 mg under the tongue every 5 (five) minutes if needed for chest pain 01/16/2024 Activeondansetron (ZOFRAN-ODT) disintegrating tablet 4 mg (1 source)Start: 80-06-4648sqazrfeswsc (ZOFRAN-ODT) disintegrating tablet 4 mg24 hr oxybutynin chloride 10 mg extended release oral tablet (1 source)Cholinergic Muscarinic AntagonistStart: 68-62-1626jgpl 1 tablet by mouth once dailyoxybutynin 10 mg ER Tab 10 mg = 1 tab(s), Oral, Daily, # 14 tab(s), Refills(s) 0, Pharmacy: [facility]/pharmacy #[id number], 187, cm, 06/10/23 13:43:00 EST, Height/Length Dosing, 93, kg, 03/11/23 13:44:00 EDT, Weight Dosing Start Date: 06/11/23 Status: Orderedmicroencapsulated potassium chloride 20 meq extended release oral tablet (20 sources)Start: 03-58-7262ibzgdqnie chloride (KLOR-CON M) extended release tablet 40 mEqStart: 61-24-8008Vgmn-Con 20 mEq, Refills(s) 0 Start Date: 04/06/24 Status: Ordered Repeat number: 1Start: 14-18-0258Cuyq-Con 20 mEq, Refills(s) 0 Start Date: 04/06/24 Status: OrderedStart: 03-08-2024 End: 31-42-6522Tdgccgstn Chloride (Klor-Con M20) 20 mEq tablet,ER particles/crystals Discontinued 10 MEQ PO Daily August 11, 2024 10:30am November 03, 2024 4:02pmStart: 02-18-2024 End: 12-76-1151xnfygyfpv chloride CR (Klor-Con M20) 20 MEQ ER tablet Take 20 mEq by mouth Daily 01/28/2025 ActivepredniSONE 10 mg oral tablet (3 sources)predniSONE 10 MG as directed Orally take 4 tablets daily x3 days, take 3 tablets for 3 days, 2 tablets for 3 days, 1 tablet for 3 days Active QUEtiapine 25 mg oral tablet (20 sources)Atypical AntipsychoticStart: 23-16-5891mpyn 1 tablet by mouth once dailyQuetiapine 25 mg tablet Active 25 MG PO Daily March 09, 2025 12:00am Complies with drug therapyStart: 32-64-1627mzvc 1 tablet by mouth three times dailyquetiapine 25 mg Tab 25 mg = 1 tab(s), Oral, TID Start Date: 11/16/24 Status: Ordered Repeat number:1Start: 10-02-2024 End: 52-36-5835ssyz 1 tablet by mouth once daily at bedtimeQuetiapine 25 mg tablet Discontinued 25 MG PO Daily at bedtime October 11, 2024 12:00am November 03, 2024 4:02pmSpacer/Aero-Holding Chambers (BreatheRite Dulce Spacer Adult) misc (20 sources)Start: 38-76-7998Eicutj/Aero-Holding Chambers (BreatheRite Dulce Spacer Adult) [facility] [place] Indications: Simple chronic bronchitis (HCC) 2 puffs 4 (four) times a day as needed (sob and cough) 1 each 02/17/2024 ActiveStart: 02-17-2024 Spacer/Aero-Holding Chambers (BreatheRite Dulce Spacer Adult) misc Indications: Simple chronic bronchitis (CMS/HCC) 2 puffs 4 (four) times a day as needed (sob and cough) 1 each 02/17/2024 Activeticagrelor 90 mg oral tablet (20 sources)Start: 10-77-0600zrit 1 tablet by mouth every twelve hoursBrilinta 90 MG tablet Take 90 mg by mouth every 12 (twelve) hours 01/16/2024 ActiveStart: 01-16-2024 End: 41-05-3659dbwl 1 tablet by mouth twice dailyTicagrelor (Brilinta) 90 mg Tablet Discontinued 90 MG PO Twice daily 180 90 January 16, 2024 12:00am August 11, 2024 10:30amVitafusion Fiber Well + Probiotics Gummies oral tablet, chewable (13 sources)Start: 35-31-6034cpxj 1 tablet by mouth once dailyVitafusion Fiber Well + Probiotics Gummies oral tablet, chewable tab(s), Oral, Daily, Refill(s) 0 Start Date: 03/02/24 Status: Ordered Repeat number: 1Start: 21-14-4631lryx 1 tablet by mouth once dailyVitafusion Fiber [...] Hazardous med- See facility policy for handling/disposalStart: 27-00-9503qufr 0.5 tablet by mouth once dailywarfarin (COUMADIN) 2 MG tablet Take 0.5 tablets by mouth daily 04/21/2024 ActiveStart: 37-69-5451cukg 1 tablet by mouth once dailywarfarin (Coumadin) 2 MG tablet Take 2 mg by mouth 1 (one) time each day 5 days a week (Friday, Friday, Friday, Friday and Friday) 04/21/2024 ActiveStart: 22-44-1458dowsygnb 2 mg Tab 2 mg = 1 tab(s), Refills(s) 0 Start Date: 04/06/24 Status: OrderedStart: 03-05-2024 End: 38-77-5133ymddsaqi (Coumadin) 5 mg tablet Indications: Paroxysmal atrial fibrillation (Multi) Take one tabletdaily in the evening. Follow with [place] [facility]. Patient will take coumadin and eliquis together for 3 days only 14 tablet 03/05/2024 03/04/2025 Activewarfarin placeholder: dosing by pharmacy (1 source)Start: 25-66-6198Iszlgx contact the pharmacy if a dose is not entered by 1600. Review INR prior to warfarin administration.water 1000 mg/ml irrigation solution (9 sources)Start: 53-68-6579vfjkipv water irrigation solution Refill(s) 0 Start Date: 04/06/24 Status: OrderedStart: 96-42-2423ydwxakj water irrigation solution See Instructions, 500 mL, Refill(s) 1, Irrigate zapien catheter asneeded with 60 cc sterile water, [facility]/pharmacy #[id number], 187, cm, 10/03/23 14:11:00 EDT, Height/Length Dosing, 93, kg, 10/03/23 14:11:00 EDT, Weight Dosing Start Date: 10/03/23 Status: Ordered Completed/Discontinued Medications MedicationDrug Class(es)DatesSig (Normalized)Sig (Original)ARIPiprazole 5 mg oral tablet (20 sources)Atypical AntipsychoticStart: 11-03-2024 End: 20-09-9390sjsu 1 tablet by mouth once dailyAripiprazole 5 mg tablet Discontinued 5 MG PO Daily November 03, 2024 12:00am March 09, 2025 2:28pm Start: 10-15-2024 End: 65-67-6292vehy 2.5 mg by mouth at bedtimeARIPiprazole (Abilify) 5 MG tablet Take 2.5 mg by mouth at bedtime 10/15/2024 11/09/2024 Discontinued (Med list cleanup)Start: 09-23-2024 End: 55-15-8788Qazaiieneeng 2 mg tablet Discontinued 2 MG PO September 23, 2024 12:00am October 11, 2024 12:28pmStart: 09-21-2024 End: 92-15-1925eqpj 0.5 tablet by mouth at bedtimeARIPiprazole (Abilify) 2 MG tablet Indications: Hallucinations Take 0.5 tablets (1 mg) by mouth at bedtime 15 tablet 09/21/2024 10/19/2024 Discontinued (Discontinued by another clinician) aspirin 81 mg delayed release oral tablet (20 sources)Platelet Aggregation Inhibitor, Nonsteroidal Anti-inflammatory Drug Start: 10-22-2023 End: 30-05-0032Clwxthk (Adult Low Dose Aspirin) 81 mg tablet,delayed release (DR/EC) Discontinued 81 MG PO Daily October 22, 2023 12:00am January 23, 2024 2:59pmStart: 08-85-0107ihpj 1 tablet by mouth once dailyAspirin 81 MG Oral Tablet Delayed Release TAKE 1 TABLET DAILY. Quantity: 90 Refills: 3 Ordered: 22-Jan-2023 Teo Al MD Start : 22-Jan-2023 ActiveStart: 05-16-2022 End: 57-99-4535jydh 1 tablet by mouth once dailyAspirin 81 mg Tablet Discontinued 81 MG PO Daily May 16, 2022 1:00am June 21, 2022 11:01 am On Hold: Resume on 06/26/22. Hold this until after your abdominal aortic aneurysm is treated.azithromycin (ZITHROMAX) 500 mg in sodium chloride 0.9 % 250 mL IVPB (Bihp9Jyj) (1 source)Start: 10-02-2024 End: 10-96-3449745 mg, IntraVENous, EVERY 24 HOURS, 2 doses, First dose on 10/02/24 at 1200, Last dose on 10/03/24 at 1200, Antimicrobial Indications: Pneumonia (CAP), CAP duration of therapy: 3 days, Use 20mm (Blue) Bsfg2Qmy Adapter Preparation instructions: Attach medication vial to one 20mm (Blue) Zgus2Acf adapter. James fluid bag with adapter, mix, and administer per order. benzonatate 100 mg oral capsule (10 sources)Non-narcotic AntitussiveStart: 03-08-2024 End: 30-99-2401nlon 1 capsule by mouth three times dailyBenzonatate 100 mg capsule Discontinued 100 MG PO Three times daily 13 12March 08, 2024 12:00am August 11, 2024 10:30amcefTRIAXone (ROCEPHIN) 1,000 mg in sterile water 10 mL IV syringe (1 source)Start: 10-02-2024 End: 73-59-3013wplx 100 mg intravenously every twenty-four hours1,000 mg, IntraVENous, EVERY 24 HOURS, First dose on 10/02/24 at 1200, For 4 days, Administer asslow IV Push over 5 mins Reconstitute 1 g vials with 9.6 mL of designated diluent to produce a 100 mg/mL solution.cefuroxime 500 mg oral tablet (2 sources)Cephalosporin AntibacterialStart: 02-17-2024 End: 98-17-4932tmbl 1 tablet by mouth in the morningcefuroxime (Ceftin) 500 MG tablet Indications: Pneumonia of left lower lobe due to infectious organism Take 1 tablet (500 mg) by mouth in the morning and 1 tablet (500 mg) before bedtime. Do all thisfor 7 days. 14 tablet 02/17/2024 02/25/2024 Discontinued (Therapy completed)ciprofloxacin 250 mg oral tablet (11 sources)Quinolone AntimicrobialStart: 10-05-2024 End: 47-93-3672wwfi 1 tablet by mouth every twelve hoursciprofloxacin (CIPRO) 250 MG tablet Take 1 tablet by mouth every 12 hours for 9 doses 9 tablet 10/0510/05/2024 Discontinued (Stop Taking at Discharge)Start: 10-05-2024 End: 16-13-9024274 mg, Oral, EVERY 12 HOURS SCHEDULED (2 times per day), 10 doses, First dose on Tu10/05/24 at 1045, Last dose on Fri10/09/24 at 2100, Antimicrobial Indications: Urinary Tract Infection, UTI duration of therapy: 5 days, Do not take with dairy products or calcium-fortified juices. Tube feeding (TF) interaction, obtain physician order to manage. Recommend holding TF for 1 hr before and 1 hr afterdose. Due to decreased absorption do not give by J tube. Start: 10-06-3961zaah 1 tablet by mouth once dailyCipro 500 mg Tab = 1 tab(s), Oral, Daily, Refills(s) 0 Start Date: 04/06/24 Status: OrderedStart: 12-03-2022 take 1 tablet by mouth once dailyCipro 250 mg Tab 250 mg = 1 tab(s), Oral, Daily, Take 1 tablet the day before the procedure and 1 tablet after the procedure, # 6 tab(s), Refills(s) 0, Pharmacy: [facility]/pharmacy #[id number], 187, cm, 09/18/2313:39:00 EDT, Height/Length Dosing, 93, kg, 09/18/22 14:39:00 EDT, Weight Dosing Start Date: 12/03/22 Status: OrderedStart: 69-83-7991gzxr 1 tablet by mouth once dailyCipro 250 mg Tab 250 mg = 1 tab(s), Oral, Daily, Take 1 tablet the day before the procedure and 1 tablet after the procedure, # 2 tab(s), Refills(s) 0, Pharmacy: [facility]/pharmacy #[id number], 187, cm, 239:11:00 EST, Height/Length Dosing, 93.5, kg, 06/11/22 9:11:00 EST, W... Start Date: 07/25/22 Status: Ordereddoxycycline hyclate 100 mg oral capsule (10 sources)Tetracycline-class DrugStart: 03-08-2024 End: 17-99-0268qzuiwnaazvw (Vibramycin) 100 MG capsule Indications: Pneumonia Take 100 mg by mouth in the morning and 100 mg before bedtime. Take with at least 8 ounces (large glass) of water, do not lie down for 30 minutes after. 03/08/2024 03/19/2024 ExpiredStart: 03-08-2024 End: 82-62-1439gojn 1 capsule by mouth twice dailyDoxycycline Hyclate 100 mg capsule Discontinued 100 MG PO Twice daily 14 03March 08, 2024 12:00am August 11, 2024 10:30amfolic acid 1 mg oral tablet (20 sources)Start: 29-74-7066pjrtg acid 1 mg Tab Refills(s) 0 Start Date: 06/10/22 Status: OrderedStart: 05-22-2022 End: 27-33-0814Idzmf Acid 1 mg tablet Discontinued 1000 MCG PO Daily at bedtime June 21, 2022 11:02am October 22, 2023 11:05amStart: 05-22-2022 End: 66-43-5550tslv 1000 ug by mouth once daily at bedtimeFolic Acid Discontinued 1000 MCG PO Daily at bedtime June 21, 2022 11:02am October 22, 2023 11:05am10 ml iron sucrose 20 mg/ml injection (7 sources)Parenteral Iron ReplacementStart: 10-25-2024 End: 07-24-0598Oryz Sucrose (Venofer) 200 mg iron/10 mL solution Discontinued 200 MG IV Q3D October 25, 2024 12:00amNovember 02, 2024 9:27am administer over 30 minsStart: 10-21-2024 End: 49-33-6173Gvih Sucrose (Venofer) 200 mg iron/10 mL solution Discontinued 200 MG IV every week 50 October 25, 2024 2:24pm October 25, 2024 2:27pm administer over 2-5 minsStart: 10-04-2024 End: 19-49-2352399 mg, IntraVENous, ONCE, On Fri10/04/24 at 0900, [...] stable.melatonin 3 mg oral tablet (1 source)Start: 10-28-9503ivyl 3 mg by mouth once daily as needed3 mg, Oral, NIGHTLY PRN, Starting on Fri10/04/24 at 1903, Until Discontinued, SleepMulti Vitamin Oral Tablet (1 source)take 1 tablet by mouth once dailyMulti Vitamin Oral Tablet TAKE 1 TABLET DAILY. Quantity: 0 Refills: 0 Ordered: 30-Aug-2023 DO Activepolyethylene glycol 3350 63004 mg powder for oral solution (1 source)Osmotic LaxativeStart: g, Oral, DAILY PRN, Starting on 10/02/24 at 1050, Until Discontinued, Constipation, First line therapy for constipationPotassium Chloride (Klor-Con M20) 20 mEq tablet,ER particles/crystals (8 sources)Start: 03-08-2024 End: 83-05-4263Mbxaqrtoj Chloride (Klor-Con M20) 20 mEq tablet,ER particles/crystals Discontinued MEQ PO March 08, 2024 12:00am August 11, 2024 10:33amStart: 62-44-0954Lqsozfoqg Chloride (Klor-Con M20) 20 mEq tablet,ER particles/crystals Active MEQ PO March 08, 2024 12:00am24 hr rivastigmine 0.192 mg/hr transdermal system (8 sources)Start: 10-11-2024 End: 79-56-9755fvykv 1 dose transdermal route every hour, then apply 1 dose transdermal route every twenty-four hoursRivastigmine (Exelon Patch) 4.6 mg/24 hour patch 24 hour Discontinued 4.6 MG TRANSDERML Daily October 11, 2024 12:00am March 09, 2025 2:29pmStart: 10-04-2024 End: 09-26-4979ezfhs 1 dose transdermal route once dailyrivastigmine (Exelon) 4.6 MG/24HR Place 1 patch on the skin Daily 10/06/2024 10/22/2024 Discontinued (Therapy completed)simvastatin 20 mg oral tablet (20 sources)HMG-CoA Reductase InhibitorStart: 05-16-2022 End: 43-49-6097afhu 1 tablet by mouth at bedtimeSimvastatin 20 mg tablet Discontinued 20 MG PO Bedtime May 16, 2022 1:00am January 1542:11pm 1000 ml sodium chloride 9 mg/ml injection (4 sources)Start: 10-02-2024 End: 46-45-8891QbfowCVLzhy, at 100 mL/hr, CONTINUOUS, Starting on 10/02/24 at 1130, For 12 hoursStart: 07-93-8265QbsanAJLetk, at 5-250 mL/hr, PRN, if patient receiving [...] 20 mL/lumenSpacer/Aero-Holding Chambers device (13 sources) End: 06-96-3937Phscmn/Aero-Holding Chambers device every 8 (eight) hours. 05/13/2024 Discontinued (Therapy completed)Spacer/Aero-Holding Chambers device every 8 (eight) hours. Activespironolactone 25 mg oral tablet (19 sources)Aldosterone AntagonistStart: 10-03-2023 End: 98-49-2492xsot 1 tablet by mouth once dailySpironolactone 25 mg tablet Discontinued 25 MG PO Daily October 22, 2023 12:00am January 23, 2024 2:59pm sulfamethoxazole 800 mg / trimethoprim 160 mg oral tablet (4 sources)Dihydrofolate Reductase Inhibitor Antibacterial, Sulfonamide AntimicrobialStart: 10-05-2024 End: 70-52-4416xkdh 1 tablet by mouth once dailySulfamethoxazole-Trimethoprim 800-160 mg tablet Discontinued 1 TAB PO Daily October 11, 2024 12:00am November 03, 2024 4:02pmvitamin b12 1 mg oral capsule (20 sources)Vitamin G94Miciv: 05-22-2022 End: 79-48-5347snav 1 capsule by mouth once daily at [...] involving other coronary artery of anterior wall]Onset: 338463-08-4230SrizdsyPpjtwi; peripheral; and visceral artery aneurysms (20 sources)Abdominal aortic aneurysm; Translations: [Abdominal aneurysm without mention of rupture]Onset: 49-46-5429ZvfuproRwfxheo on above:Problem List clean- up per request of Phys. EHR CmteAttention-deficit, conduct, and disruptive behavior disorders (1 source)Other symptoms and signs involving appearance and behavior; Translations: [Other symptoms and signsinvolving appearance and behavior]Onset: 28-94-9629IojmkyfcClbfgdyb of urinary tract (20 sources)Urinary bladder stone; Translations: [Calculus in bladder]Onset: 89-11-6496TodbupguQtwrty of bladder (20 sources)Malignant tumor of urinary bladder; Translations: [Malignant neoplasm of bladder, unspecified]Onset: 50-20-1867LlokbxyIsvpgt; other and unspecified primary (20 sources)H/O: malignant pcnkccem30-24-6938WxloeeqiGccgkhs dysrhythmias (20 sources)Atrial fibrillation; Translations: [Unspecified atrial fibrillation] Onset: 11-11-2022 Resolved: 558449-79-8510MsppddeCnvkohf kidney disease (20 sources)Chronic kidney disease stage 3B ; Translations: [Chronic kidney disease, stage 3b]Onset: 118001-94-8055EjryldqMlmddsl kidney disease (6 sources)Chronic kidney disease; Translations: [CHRONIC KIDNEY DISEASE STAGE 3B]Onset: 97-89-0956Ietlswy obstructive pulmonary disease and bronchiectasis (20 sources)Pulmonary emphysema; Translations: [Simple chronic bronchitis]Onset: 919834-63-3253LymowwlGhcvuubdknux of device; implant or graft (5 sources)Other mechanical complication of indwelling urethral catheter, initial encounter; Translations: [Mechanical complication of genitourinary device]Onset: 73-95-6978IqqcroziRajnwoejwc heart failure; nonhypertensive (20 sources)Chronic systolic heart failure; Translations: [Chronic systolic (congestive) heart failure]Onset: 916899-34-0846OoxdwrjDrkbioet atherosclerosis and other heart disease (20 sources)Ischemic myocardial dysfunction; Translations: [Ischemic cardiomyopathy]Onset: 296625-73-6031YcxhnacApomahcysp and other anemia (20 sources)Anemia co-occurrent and due to chronic kidney disease stage 3; Translations: [Anemia due to stage 3b chronic kidney disease (HCC)]Onset: 937036-23-4479WswfxdrOrnqahxirs and other anemia (15 sources)Anemia; Translations: [Anemia, unspecified]30-38-6321Ruwxtqgs Deficiency and other anemia (13 sources)Anemia, unspecified; Translations: [Anemia, unspecified]10-22-2023 EpisodicDelirium, dementia, and amnestic and other cognitive disorders (20 sources)Dementia; Translations: [Unspecified dementia without behavioral disturbance]Onset: 06-11-2022 Resolved: 33-56-7111UsifdbyLieynbjyr of lipid metabolism (20 sources)Dyslipidemia; Translations: [Other and unspecified hyperlipidemia] Onset: 23-33-0445UpvgmyrZxwdbldzm hypertension (20 sources)Hypertensive disorder; Translations: [Unspecified essential hypertension]Onset: 572810-72-2492EejqmgqBtmnw and electrolyte disorders (20 sources)Hyperkalemia; Translations: [Metabolic acidosis]Onset: 05-16-2022 Resolved: 017268-70-1723RcqtjyfiLxnowkq on above:Problem List clean-up per request of Phys. EHR CmteGenitourinary symptoms and ill-defined conditions (2 sources)Urinary catheter in situ; Translations: [Presence of urogenital implants]22-36-8781NbggnjfAxofyumlwoq of prostate (20 sources)Benign prostatic hypertrophy with outflow obstruction; Translations: [Benign prostatic hyperplasia with lower urinary tract symptoms]Onset: 09-45-8254QijdkriLsxmszbhgkuw with complications and secondary hypertension (20 sources)Hypertensive chronic kidney disease with stage 1 through stage 4 chronic kidney disease, or unspecified chronic kidney disease; Translations: [Hypertensive renal disease]Onset: 02-22-2016 Resolved: 525112-81-0929NgqkvpkVnvy effects of cerebrovascular disease (1 source)Other sequelae following unspecified cerebrovascular disease; Translations: [OTH SEQUELAE UNS CEREBROVASCULAR DZ]Onset: 41-32-4179Mozzivv Occlusion or stenosis of precerebral arteries (20 sources)Atherosclerosis of right carotid artery; Translations: [Occlusion and stenosis of right carotid artery]Onset: 097322-17-3649OqmuqxwRryda aftercare (1 source)longterm (current) use of anticoagulants; Translations: [RETAIL W[employer]LESS SALES CONSULTANT CURRNT USE ANTICOAGULANTS]Onset: 82-47-5739UkjhnqqaMqpgd aftercare (17 sources)Taking high risk medication; Translations: [Other intermediate card tender (current) drug therapy]Onset: 055114-30-4414UisgukqaTglwt aftercare (1 source)Long-term current use of anticoagulant; Translations: [longterm (current) use of anticoagulants]Onset: 13-70-2910VohgjxkqMhjwe aftercare (5 sources)Patient encounter status; Translations: [Encounter for palliative care]Onset: 83-65-729011835577-07-4169MuftildcOjvvy and ill-defined cerebrovascular disease (20 sources)Cerebral ischemiaOnset: 514383-57-2088BzwbfskTxdsl circulatory disease (1 source)Stented artery; Translations: [Presence of other vascular implants and grafts]46-14-3316NjaadltDwdyo circulatory disease (1 source)Personal history of transient ischemic attack (TIA), and cerebral infarction without residual deficits; Translations: [PERS HX TIA AND CI NO RESID DEFICIT]Onset: 59-97-6102StqvriziLdrid circulatory disease (11 sources)Low blood pressure; Translations: [Hypotension, unspecified] 52-51-7031ZxaxhkomDdqaz diseases of bladder and urethra (2 sources)Disorder of bladder; Translations: [Other specified disorders of bladder]Onset: 08-70-1709TxtinpeOrenw diseases of bladder and urethra (20 sources)Mass of urinary bladder; Translations: [Other specified disorders of bladder]36-77-4928WacutacVnvfpbu on above:Problem List clean-up per request of Phys. EHR CmteOther diseases of bladder and urethra (4 sources)Other specified disorders of bladder; Translations: [Other specified disorders of bladder]81-42-4982YpxmagqMgouk diseases of bladder and urethra (20 sources)Lesion of ragqlfv76-56-8544WpqplycHjqpg diseases of bladder and urethra (1 source)Diverticulum of bladder; Translations: [DIVERTICULUM OF BLADDER]Onset: 15-41-4657StyvovhQzaoh diseases of bladder and urethra (1 source)Bladder disorder, unspecified; Translations: [BLADDER DISORDER UNSPECIFIED]Onset: 19-58-9014QbrtygwHngvs diseases of kidney and ureters (2 sources)Disorder of kidney and/or ureter; Translations: [Disorder of kidney and ureter, unspecified]Onset: 73-32-1905YncdxtniQnscx diseases of kidney and ureters (20 sources)Wdbcbeqxpjqvqe09-02-5001RsvtlaifFaeew diseases of kidney and ureters (20 sources)Kidney yzsqmu48-24-3135RejwpzdvCqiwk diseases of kidney and ureters (7 sources)Unspecified hydronephrosis; Translations: [Hydronephrosis]Onset: 798199-71-7345GhvjasynDattq diseases of kidney and ureters (1 source)Urinary tract obstruction; Translations: [Other obstructive and reflux uropathy]Onset: 58-65-5043ShyhohokLcxie diseases of kidney and ureters (15 sources)Obstructive nephropathy; Translations: [Other obstructive and reflux uropathy]33-89-6820AibjhdhyLfram diseases of kidney and ureters (13 sources)Other obstructive and reflux uropathy; Translations: [Other specified disorders of kidney and ureter]82-50-4475SurxhtufNtyhi diseases of veins and lymphatics (1 source)Venous insufficiency (chronic) (peripheral); Translations: [VENOUS INSUFF CHRONIC PERIPHERAL]Onset: 64-18-8322AwmsndmkApuhp diseases of veins and lymphatics (2 sources)Disorder of vein of lower extremity; Translations: [Venous insufficiency (chronic) (peripheral)]49-64-7103TnofcwkeLofje ear and sense organ disorders (20 sources)Hearing difficulty; Translations: [Unspecified hearing loss, bilateral]Onset: 302414-56-7615XwzsjpeNeeti ear and sense organ disorders (20 sources)Hearing loss; Translations: [Unspecified hearing loss, unspecified ear]Onset: 702796-63-7933KlfighkFtepd ear and sense organ disorders (2 sources)Mixed conductive and sensorineural hearing loss, bilateral; Translations: [Mixed conductive and sensorineural hearing loss, bilateral] 75-36-5564YzmlkjiHfcux gastrointestinal disorders (20 sources)Diarrhea; Translations: [Diarrhea, unspecified]69-17-1516Cjshnjai Comment on above:Problem List clean-up per request of Phys. EHR CmteOther gastrointestinal disorders (11 sources)Colonic lesion; Translations: [Disease of intestine, unspecified] 32-04-4075CtqdjjpzQudje injuries and conditions due to external causes (13 sources)Foreign body in bladder; Translations: [Foreign body in bladder, initial encounter]Onset: 58-01-3758ImmkdwxjWafqr nervous system disorders (20 sources)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; Translations: [Circadian rhythm sleep disorder, unspecified type]Onset: 750206-68-5361Qhkjdri Comment on above:Problem List clean-up per request of Phys. EHR CmteOther nervous system disorders (20 sources)Metabolic encephalopathy; Translations: [Metabolic encephalopathy] Onset: 162333-36-0090MddwqpgUuhtagi on above:Problem List clean-up per request of Phys. EHR CmteOther nervous system disorders (4 sources)Metabolic encephalopathy; Translations: [Metabolic encephalopathy] 74-29-3381UzoiwmjViocr nervous system disorders (9 sources)Circadian rhythm sleep disorder, unspecified type; Translations: [Disruption of 24 hour sleep wake cycle, unspecified]Onset: ChronicOther nervous system disorders (11 sources)Abnormal circadian rhythm; Translations: [Circadian rhythm sleep disorder, unspecified type]65-26-6733YarcmtnLwjxn nervous system disorders (1 source)Unspecified disturbances of skin sensation; Translations: [UNS DISTURBANCES OF SKIN SENSATION]Onset: 68-64-2294HbkjkfxfMfddd nervous system disorders (2 sources)Impaired cognition; Translations: [Other symptoms and signs involving cognitive functions and awareness]77-57-8411BujlkurbFojqb nervous system disorders (1 source)Other symptoms and signs involving cognitive functions and awareness; Translations: [Other symptomsand signs involving cognitive functions and awareness]Onset: 18-38-4835QsxdnocmGbndb nutritional; endocrine; and metabolic disorders (1 source)Other obesity due to excess calories; Translations: [OTHER OBESITY D/T EXCESS CALORIES]Onset: 87-84-8063XbpukhzPntfj nutritional; endocrine; and metabolic disorders (16 sources)Overweight in adulthood with body mass index of 25 or more but less than 30; Translations: [Overweight]Onset: 02-10-2024 Resolved: 952062-26-6614VtqkymrxVnpfjufwoj and visceral atherosclerosis (1 source)Peripheral vascular disease; Translations: [Peripheral vascular disease, unspecified]15-28-5412EolxhpyLxqwbgaw codes; unclassified (20 sources)Tobacco user; Translations: [Tobacco use]97-18-1345IigukgveEidogkp on above:quit aprilroblem List clean-up per request of Phys. EHR CmteResidual codes; unclassified (4 sources)Tobacco use; Translations: [Tobacco use disorder]98-70-3962Hijwbdov Residual codes; unclassified (14 sources)History of cardiovascular surgery; Translations: [Other specified postprocedural states]69-98-1867DathdfzfDoawfzzw codes; unclassified (12 sources)Delirium; Translations: [Disorientation, unspecified]01-23-2024 EpisodicResidual codes; unclassified (3 sources)Prevention status; Translations: [Need for prophylaxis against urinary tract infection]93-54-3842JwsaywgjPbpqostn codes; unclassified (2 sources)Hallucinations; Translations: [Hallucinations, unspecified]09-21-2024 EpisodicResidual codes; unclassified (1 source)Localized edema; Translations: [Localized edema]Onset: 10-02-2024 EpisodicThyroid disorders (3 sources)Hyperthyroidism; Translations: [Thyrotoxicosis, unspecified without thyrotoxic crisis or storm]Onset: 919973-25-1141AwvkuonJtnarwyru cerebral ischemia (20 sources)Transient cerebral ischemia; Translations: [Unspecified transient cerebral ischemia]Onset: 658421-01-7949ZuuezagBdrxvex on above:Problem List clean-up per request of Phys. EHR CmteUnclassified (1 source)ABDOMINAL AA W/O RUPTURE UNSPCIFIED; Translations: [ABDOMINAL AA W/O RUPTURE UNSPCIFIED]Onset: 00-60-1712Blvfnldwfwmq (1 source)CONTACT W/AND (SUSP) EXPOS COVID-19; Translations: [CONTACT W/AND (SUSP) EXPOS COVID-19]Onset: 34-14-3132Jobkrgsnynqb (9 sources)Drug therapy swlufwq73-18-9092Nufhkoljbzue (2 sources)Abdominal aortic aneurysm, without rupture, unspecified; Translations: [Abdominal aortic aneurysm, without rupture, unspecified]Onset: 83-42-7925Pzebqkkkpgpb (1 source)Abdominal aortic aneurysm, without rupture, unspecified (CMS-HCC); Translations: [Abdominal aortic aneurysm, without rupture, unspecified (CMS-HCC)]Onset: 01-22-1476Iwwmzbt tract infections (20 sources)Urinary tract infectious disease; Translations: [Urinary tract infection, site not specified]Onset: 852993-90-7380VbcjouvrSuejomc on above:Problem List clean-up per request of Phys. EHR CmteViral infection (4 sources)COVID-19; Translations: [COVID-19]Onset: 01-04-2022 Past or Other Problems Problem ClassificationProblemDateDocumented DateEpisodic/ChronicAcute and unspecified renal failure (20 sources)Acute renal failure syndrome; Translations: [Acute kidney failure, unspecified]Onset: 05-16-2022 Resolved: 82-20-4728HjxxlfnaSzffttx on above:Problem List clean-up per request of Phys. EHR CmteAdministrative/social admission (20 sources)Other reduced mobility; Translations: [Impaired mobility and activities of daily living]Onset: 373258-38-4772IgrostffOhjfgf of bladder (20 sources)History of malignant neoplasm of bladder; Translations: [Personal history of malignant neoplasm of bladder]Onset: 12-10-2022 Resolved: 49-28-8748AuangdhpWbjvolrg atherosclerosis and other heart disease (20 sources)Stented coronary artery; Translations: [Presence of coronary angioplasty implant and graft]Onset: 01-16-2024 Resolved: 147626-49-8230YivhkebvLzdhkkgqvnxoc symptoms and ill-defined conditions (20 sources)Retention of urine; Translations: [Retention of urine, unspecified] Onset: 06-10-2022 Resolved: 37-76-0578TswzliwgSygybfa and fatigue (4 sources)Other fatigue; Translations: [OTHER FATIGUE]Onset: 64-47-3040Glqqayfc Mood disorders (20 sources)Mood disordersOnset: 05-12-2023 Resolved: Nausea and vomiting (1 source)Vomiting, unspecified; Translations: [VOMITING UNSPECIFIED]Onset: 10-62-8674NjdbyxonJwmbfldkw of unspecified nature or uncertain behavior (20 sources)Neoplasm of unspecified behavior of bladder; Translations: [Neoplasm of bladder]Onset: 20-53-8254WthpcufpCbfzmisecvl deficiencies (20 sources)Cobalamin deficiency; Translations: [Deficiency of other specified B group vitamins]Onset: 588915-46-4928NeatbttxXighohy on above:Problem List clean-up per request of Phys. EHR CmteOther aftercare (3 sources)Other intermediate card tender (current) drug therapy; Translations: [OTH RETAIL WIRELESS SALES CONSULTANT CURRENT DRUG THERAPY]Onset: 38-37-7296FxceuzsmIlmhx aftercare (1 source)longterm (current) use of aspirin; Translations: [SNF 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]Onset: 72-03-8257VxqeetafTnigp aftercare (20 sources)Polypharmacy ; Translations: [Other intermediate card tender (current) drug therapy]Onset: 472247-66-4553DkngtrahDcoiw circulatory disease (2 sources)Personal history of other diseases of the circulatory system; Translations: [Personal history of other diseases of the circulatory system] Onset: 67-83-0328YdtwmskgWiskr circulatory disease (5 sources)Hypotension, unspecified; Translations: [Hypotension, unspecified] Onset: 056142-30-2946HjsctkdvCanyi circulatory disease (20 sources)H/O: cardiovascular disease; Translations: [Personal history of other diseases of the circulatory system]Onset: 02-22-2016 Resolved: 810592-79-1325UnpzrabvDbvst circulatory disease (3 sources)Other specified symptoms and signs involving the circulatory and respiratory systems; Translations:[Other symptoms involving respiratory system and chest]Onset: 619895-81-5899TerdpywcGsxsn diseases of kidney and ureters (20 sources)Hydroureter; Translations: [Hydroureter]Onset: 53-85-3879Dqqqwgus Other diseases of kidney and ureters (20 sources)Bilateral hydronephrosis ; Translations: [Unspecified hydronephrosis]Onset: 049691-99-7385UgseilheIiqrn diseases of veins and lymphatics (20 sources)Venous insufficiency of leg; Translations: [Venous insufficiency (chronic) (peripheral)]Onset: 038275-31-1014KrgivyppLecfm gastrointestinal disorders (5 sources)Diarrhea, unspecified; Translations: [Diarrhea]Onset: 05-23-2022 40-77-1345FmjsrlabMjrdg nervous system disorders (20 sources)White matter disease; Translations: [White matter disease, unspecified]Onset: 866912-11-7104FswayrkfUjyeq nutritional; endocrine; and metabolic disorders (3 sources)Body mass index (BMI) 26.0-26.9, adult; Translations: [BODY MASS INDEX BMI 26.0-26.9 ADULT]Onset: 11-09-4157DqogfpfrBqwkg nutritional; endocrine; and metabolic disorders (1 source)Anorexia; Translations: [ANOREXIA]Onset: 40-29-7736YrnguqdnMxoam nutritional; endocrine; and metabolic disorders (1 source)Abnormal weight loss; Translations: [ABNORMAL WEIGHT LOSS]Onset: 81-79-2262RzaytuedUhjip nutritional; endocrine; and metabolic disorders (20 sources)Overweight; Translations: [Overweight]Onset: 803788-98-6886 EpisodicOther nutritional; endocrine; and metabolic disorders (2 sources)Body mass index (BMI) 25.0-25.9, adult; Translations: [Body mass index (BMI) 25.0-25.9, adult]Onset: 80-75-3547GkwmnrsfOivku screening for suspected conditions (not mental disorders or infectious disease) (7 sources)Other specified abnormal findings of blood chemistry; Translations: [Prolonged QT interval]Onset: 45-06-8163XbwawighGhglwrvln (except that caused by tuberculosis or sexually transmitted disease) (20 sources)Left lower zone pneumonia; Translations: [Pneumonia, unspecified organism]Onset: 556403-44-1590MxanidzuAkrybflk codes; unclassified (8 sources)Other specified postprocedural states; Translations: [Other postprocedural status]Onset: 17-95-2169JpcblaikSooaytri codes; unclassified (1 source)Chills (without fever); Translations: [CHILLS WITHOUT FEVER]Onset: 48-04-8360JbodhyidSktbjlbz codes; unclassified (5 sources)Disorientation, unspecified; Translations: [Other alteration of consciousness]Onset: 472612-97-1260KfnaciffSbjlvxkv codes; unclassified (20 sources)Edema of lower extremity; Translations: [Localized edema]Onset: 866211-92-1513RmkoblprVpblczmd codes; unclassified (1 source)Other specified health status; Translations: [Other specified health status]Onset: 45-39-7656KtteexudJxedfenla and history of mental health and substance abuse codes (20 sources)Ex-smoker; Translations: [Personal history of tobacco use]Onset: 238128-48-2358HxyeuxwyEnpexku on above:05/17/23 quit;Substance-related disorders (20 sources)Nicotine dependence, cigarettes, uncomplicated; Translations: [Smoker]Onset: 02-23-2015 Resolved: 166985-63-5927BwxsfxpXjmtkdh on above:1/2 dozen cigarettes; Unclassified (3 sources)Abdominal aortic aneurysm (AAA) without rupture, unspecified part I71.40Unclassified (3 sources)Infrarenal abdominal aortic aneurysm (AAA) without rupture I71.43 Unclassified (20 sources)Onset: 12-31-2023 Resolved: 871632-41-3463Shvhzakqxbik (1 source)Abdominal aortic aneurysm, without rupture, unspecified; Translations: [Abdominal aortic aneurysm, without rupture, unspecified]Onset: 09-10-2024 Unclassified (1 source)Abdominal aortic aneurysm, without rupture, unspecified (CMS-HCC); Translations: [Abdominal aortic aneurysm, without rupture, unspecified (CMS-HCC)]Onset: 05-21-2024 Results Test NameValueInterpretationReference RangeFacilityXR CHEST 2Von 57-40-3202[address] [address] XRay Report Signed Patient: ALEX ANDERSON MR#: [id number] : 1945 Acct:[id number] Age/Sex: 79 / M ADM Date: 03/22/25 Loc: RAD Attending Dr: TEO AL Ordering Physician: TEO AL Date of Service: 03/22/25 Procedure(s): XR chest 2V Accession Number(s): [id number] cc: STANLEY EMERSON ; TEO AL [address] [address] Patient Name: ALEX ANDERSON MRN: [id number] date: 1945 Sex: M Assigned Patient Location: [facility] Current Patient Location: [facility] Accession/Order Number: [id number] Exam Date: 03/22/2025 11:45 Report Date: 03/22/2025 12:26 At the request of: TEO AL Procedure: XR chest 2V PA AND LATERAL CHEST: CLINICAL HISTORY: Paroxysmal Atrial Fibrillation, High Risk Medication COMPARISON: 10/01/2024 There is elevation of the left hemidiaphragm with underlying air-filled viscus. Minor scarring or atelectasis is present at the right base. There is no developing consolidation, effusion or pneumothorax. The cardiac, hilar and mediastinal silhouettes are similar including aortic ectasia. There is no vascular congestion. The visualized bony structures are osteopenic. Mild endplate spurring is seen. XR/XR chest 2V IMPRESSION: NO ACUTE CARDIOPULMONARY ABNORMALITY. Impression dictated by: Amy Person M.D. 03/22/2025 12:26 PM Dictation Location: [place] [address] Electronically authenticated by: [id number] Y Date: 03/22/2025 12:26 Dictated By: Amy Person M.D. Signed By: 03/22/25 1229 DD/ 1226 TD/TT: Advanced Solutions Architect:TBHRadiology, Radiologist, - 03/22/2025 [place] [id number] XRay Report Signed Patient: ALEX ANDERSON MR#: [id number] : 1945 Acct:[id number] Age/Sex: 79 / M ADM Date: 03/22/25 Loc: RAD Attending Dr: TEO AL Ordering Physician: TEO AL Date of Service: 03/22/25 Procedure(s): XR chest 2V Accession Number(s): [id number] cc: STANLEY EMERSON ; TEO AL [address] [address] Patient Name: ALEX ANDERSON MRN: [id number] date: 1945 Sex: M Assigned Patient Location: RAD Current Patient Location: RAD Accession/Order Number: [id number] Exam Date: 03/22/2025 11:45 Report Date: 03/22/2025 12:26 At the request of: TEO AL Procedure: XR chest 2V PA AND LATERAL CHEST: CLINICAL HISTORY: Paroxysmal Atrial Fibrillation, High Risk Medication COMPARISON: 10/01/2024 There is elevation of the left hemidiaphragm with underlying air-filled viscus. Minor scarring or atelectasis is present at the right base. There is no developing consolidation, effusion or pneumothorax. The cardiac, hilar and mediastinal silhouettes are similar including aortic ectasia. There is no vascular congestion. The visualized bony structures are osteopenic. Mild endplate spurring is seen. XR/XR chest 2V IMPRESSION: NO ACUTE CARDIOPULMONARY ABNORMALITY. Impression dictated by: Amy Person M.D. 03/22/2025 12:26 PM Dictation Location: [place] [address] Electronically authenticated by: [id number] Y Date: 03/22/2025 12:26 Dictated By: Amy Person M.D. Signed By: 03/22/25 1229 DD/ 1226 TD/TT: Advanced Solutions Architect: MARSHAL HealthcareRadiology Study observation (narrative)NOM[facility] HealthcareXR CHEST 2V Ordered By: Radiologist Radiology on 15-18-3120[facility] Work Phone: all BASIC METABOLIC PANELon 50-61-5519Omdbh gap [Moles/Vol]16.4 mmol/LNOMS HealthcareCalcium [Mass/Vol]8.8 mg/dL8.5 - 10.1 mg/dL [facility] HealthcareChloride [Moles/Vol]107 mmol/L98 - 107 mmol/LNOMS HealthcareCO2 [Moles/Vol]27.5 mmol/L21.0 - 32.0 mmol/LNOMS HealthcareCreatinine [Mass/Vol]1.80 mg/dLHigh0.70 - 1.30 mg/dLNOMS HealthcareGFR/1.73 sq M.predicted CKD-EPI (S/P/Bld) [Vol rate/Area]44Low>=60 mL/min/1.73m 2NOMS HealthcareGlucose [Mass/Vol]88 mg/dL74 - 106 mg/dLHarry S. Truman Memorial Veterans' HospitalPotassium [Moles/Vol]3.9 mmol/L 3.5 - 5.1 mmol/LNOMS HealthcareSodium [Moles/Vol]147 mmol/NEenn838 - 145 mmol/L [facility] EGFR-NON AF AKIRUGTU26Nyn>=60 mL/min/1.73m 2NFAIRFAX COMMUNITY [facility] – [facility] Healthcare Urea nitrogen [Mass/Vol]26.0 mg/dLHigh7.0 - 18.0 mg/dLHarry S. Truman Memorial Veterans' HospitalUrea nitrogen/Creatinine [Mass ratio]14.4 mg/mgNOThree [facility] LIPID PROFILE (FASTING)on 12-31-5916JQMN HDL RATIO2.2NFAIRFAX COMMUNITY HOSPITAL – FAIRFAX HealthcareComment on above:3.3 - 4.4 LOW RISK 4.4 - 7.1 AVERAGE RISK 7.1 - 11.0 MODERATE RISK >11.0 HIGH RISK Cholesterol [Mass/Vol]86 mg/dLNINF - 200 mg/dLHarry S. Truman Memorial Veterans' HospitalCholesterol in HDL [Mass/Vol]39 mg/dLLow40 - 60 mg/dLJORDAN VALLEY [facility]ENTER HealthcareComment on above:> or =60 mg/dl - LOW CARDIOVASCULAR RISK <40 mg/dl - HIGH CARDIOVASCULAR RISK Magnesium [Mass/Vol]33.0 mg/dLJORDAN VALLEY MEDICAL CENTER HealthcareComment on above:<100 mg/dl OPTIMAL 100-129 mg/dl NEAR OR ABOVE OPTIMAL 130-159 mg/dl BORDERLINE HIGH 160-189 mg/dl HIGH >190 mg/dl VERY HIGH Magnesium [Mass/Vol]14.8 mg/dLHarry S. Truman Memorial Veterans' HospitalTriglyceride [Mass/Vol]74 mg/dLNINF - 150 [facility]/dLI[facility] THYROID STIM HORMONEon 24-13-7543UPH Qn16.644 m[IU]/[facility] HospitalCCF Gabby 19-30-2507LBK [Catalytic activity/Vol]18 U/L 15 - 37 U/[facility] CenterNo Panel Informationon 12-24-2117Euhboeqcxxlxtk and review of laboratory resultsAbCorewell Health Butterworth HospitalCLINISYNLONG ISLAND HOSPITAL Healthcare Ambulatory Visit Summaryon 79-99-6813Yktxuuchgz Visit SummaryAmbulatory Visit Summary ANDERSONALEX :1945 Visit Date:03/10/2025 Ambulatory Visit Instructions Your [...] 11:00 AM EST With: TC Boles APRN, [place] X Where: [facility] [address] [address]- Medications What How Much When Instructions Unchanged [...] signed up for this yet, please contact Quintura at [phone] to get signed up today. Language Information Language assistance services are available as needed. [facility] Health SystemErythrocyte distribution width Auto (RBC) [Ratio]Ordered By: Celia Griffin on 75-48-9437Pbmfqvielsp distribution width (RBC) [Ratio]15.7 %High11.0-15.0[facility] Glomerular filtration rate (GFR) estimation in non- AmericanOrdered By: Celia Griffin on 93-22-4099BDA/1.73 sq M.predicted among non-blacks MDRD (S/P/Bld) [Vol rate/Area]28 mL/min/{1.73_m2}Low>=60 mL/min/1.73m [address] [place] [address] CBC WITH PLATELET NO DIFFERENTIALon 02-28-2025 Erythrocyte distribution width (RBC) [Ratio]15.7 %High11.0 - 15.0 %[facility] HealthcareHematocrit (Bld) [Volume fraction]38.4 %Low42.0 - 54.0 %[facility] HealthcareHemoglobin (Bld) [Mass/Vol]11.6 g/dLLow14.0 - 18.0 g/dLHarry S. Truman Memorial Veterans' Hospital Interpretation and review of laboratory resultsAbnormalScotland County Memorial HospitalH (RBC) [Entitic mass]26.6 pg25.9 - 34.0 pgScotland County Memorial HospitalHC (RBC) [Mass/Vol]30.2 g/dL 29.9 - 35.2 g/dLScotland County Memorial HospitalV (RBC) [Entitic vol]88.1 fL80.0 - 94.0 fLHarry S. Truman Memorial Veterans' HospitalPlatelet mean volume (Bld) [Entitic vol]10 fL9.5 - 13.5 fLHarry S. Truman Memorial Veterans' HospitalTB FLR145QYUJCedar County Memorial Hospital RBC4.36LowNOCedar County Memorial Hospital WBC7.1NOMS HealthcareCLINISYNCNFAIRFAX COMMUNITY HOSPITAL – FAIRFAX HealthcareHematocrit Auto (Bld) [Volume fraction]Ordered By: Celia Griffin on 92-73-0525Bqdfltjszs (Bld) [Volume fraction]38.4 %Low 42.0-54.0[facility] HospitalHemoglobin [Mass/volume] in Blood Ordered By: Celia Griffin on 34-56-9612Kdrwsmykbx (Bld) [Mass/Vol]11.6 g/dLLow 14.0-18.0[facility] HospitalIron binding capacity [Mass/volume] in Serum or PlasmaOrdered By: Celia Griffin on 24-79-3822Waft binding capacity [Mass/Vol]301.0 ug/dL250.0-450.0[facility] HospitalIron saturation [Mass Fraction] in Serum or PlasmaOrdered By: Celia Griffin on 11-44-7044Iojb saturation [Mass fraction]9.6 %[facility] HospitalLaboratory - Chemistry and Chemistry - challengeOrdered By: Celia Griffin on 20-87-1595Bcjaits [Mass/Vol]3.8 g/dL3.4-5.0[facility] HospitalCalcium [Mass/Vol]8.6 mg/dL8.5-10.1FProMedica Toledo HospitalChloride [Moles/Vol]108 mmol/LHigh 98-107[facility] HospitalCO2 [Moles/Vol]27.9 mmol/L21.0-32.0 [facility] HospitalCobalamin (Vitamin B12) [Mass/Vol]689 pg/mL 232-1245[facility]ier HospitalComment on above:Performed at: [facility] [address] [id number] Director: Morgan Carpenter PhD, Phone: [phone] [Mass/Vol]2.27 mg/dLHigh0.70-1.30 [facility] HospitalFerritin [Mass/Vol]59.0 ng/mL26.0-388.0 [facility] HospitalGFR/1.73 sq M.predicted MDRD (S/P/Bld) [Vol rate/Area]34 mL/min/{1.73_m2}Low>=60 mL/min/1.73m 2FProMedica Toledo HospitalGlucose [Mass/Vol]105 mg/tH14-010CramracjiParkview Health Montpelier HospitalIron [Mass/Vol]29.0 ug/dLLow65.0-175.0[facility] HospitalMagnesium [Mass/Vol]2.3 mg/dL1.8-2.4FProMedica Toledo HospitalPotassium [Moles/Vol] 3.8 mmol/L3.5-5.1FOhioHealth Grant Medical Centerodium [Moles/Vol]145 mmol/L 136-145[facility] HospitalUrate [Mass/Vol]6.5 mg/dL3.5-7.2 [facility] HospitalUrea nitrogen [Mass/Vol]31.0 mg/dLHigh7.0-18.0 [facility] HospitalUrea nitrogen/Creatinine [Mass ratio]13.7 mg/mg [facility] HospitalLaboratory - UrinalysisOrdered By: Celia Griffin on 74-28-4959Jbblnuf (U) [Mass/Vol]7.7 mg/dL<=11.9[facility] HospitalLeukocytes [#/volume] corrected for nucleated erythrocytes in Blood by Automated counOrdered By: Celia Griffin on 20-55-4772YBS corrected for nucl RBC Auto (Bld) [#/Vol]7.1 10 3/uL4.0-11.0[facility] HospitalH Auto (RBC) [Entitic mass]Ordered By: Celia Griffin on 95-46-9637VXX (RBC) [Entitic mass]26.6 pg25.9-34.0[facility] HospitalHC Auto (RBC) [Mass/Vol] Ordered By: Celia Griffin on 48-68-4035QIPT (RBC) [Mass/Vol]30.2 g/dL29.9-35.2 [facility] HospitalV Auto (RBC) [Entitic vol]Ordered By: Celia Griffin on 11-92-3547KBY (RBC) [Entitic vol]88.1 fL80.0-94.0[facility] HospitalNo Panel InformationOrdered By: Celia Griffin on - Hydroxy Vitamin D Total56.8 ng/mLParkview Health Montpelier HospitalComment on above:<20 ng/mL Vit D ymifwvccm07-<30 ng/mL Vit D fzxscyizxncf95-651 ng/mL Vit D sufficient>100 ng/mL Potential ToxicityFolate>20.0 ng/mL>3.0[facility] HospitalComment on above:A serum folate concentration of less than 3.1 ng/mL isconsidered to represent clinical deficiency.Performed at: [facility] [id number] Director: Morgan Carpenter PhD, Phone: [phone] Hormone (Intact)69 pg/oXWrenphyd74-84SdhurxgiwParkview Health Montpelier HospitalComment on above:Performed at: [facility] [address] [id number] Director: Morgan Carpenter PhD, Phone: [phone] Level3.1 mg/dL2.6-4.7FProMedica Toledo HospitalUrine Random Ytsumtaaba31.47 mg/dLLow20.00-300.00[facility] Platelet mean volume Auto (Bld) [Entitic vol]Ordered By: Celia Griffin on 31-81-2104Fkfunutz mean volume (Bld) [Entitic vol]10.0 fL9.5-13.5FProMedica Toledo HospitalPlatelets Auto (Bld) [#/Vol]Ordered By: Celia Griffin on 27-11-0944Yeqyovxpy (Bld) [#/Vol]193 10 3/jE191-366HqleuhgnfParkview Health Montpelier HospitalRBC Auto (Bld) [#/Vol]Ordered By: Celia Griffin on 98-54-1688XQB (Bld) [#/Vol]4.36 10 6/uLLow4.70-6.10[facility] Medical Centererum or plasma anion gap determinationOrdered By: Celia Griffin on 82-87-2010Hfmjq gap [Moles/Vol]12.9 mmol/LFProMedica Toledo HospitalUrine protein/creatinine ratioOrdered By: Celia Griffin on 62-34-1643Iygweoo/Creatinine (U) [Ratio]0.47 [facility] HospitalAmbulatory Visit Summaryon 35-07-9971Ncpohmrnyj Visit SummaryAmbulatory Visit Summary ALEX ANDERSON :1945 [...] APRN, Blanca Hadley Where: [facility] [place] [id number]- Medications What How Much When Instructions Unchanged [...] signed up for this yet, please contact Quintura at [phone] to get signed up today. Language Information Language assistance services are available as needed. [facility] SystemALL HEMOGLOBINon 02-02-2025 Hemoglobin (Bld) [Mass/Vol]10.9 g/dLLow14.0 - 18.0 g/dLHarry S. Truman Memorial [facility]' Hospital Interpretation and review of laboratory resultsAbnormalHarry S. Truman Memorial Veterans' HospitalCLINISYNC [facility] HealthcareUroVysion Fish and Urine Cyto ([facility])on 22-93-2927BLBSWA & UC Diagnosis InfoInvalid Interpretation [facility] HospitalComment on above:Result Comment: A:Urine,Bladder Wash:Bladder Wash [...] with cytology and cystoscopy results. * CPT: 95257, 07201. Microscopic Notes - Microscopic Notes - Abnormal cells 9p21 deletions: Abnormal cells aneploid events: Total cells analyzed: 69 Hematuria: Gross Description Site ID:A color Light Yellow fixative Alcohol Received 100 mls of clear light yellow fluid with thepatient's name and, Bladder Wash on the vial. Electronically signed by : on: 11/29/2024 06:34:10Performed By: #### [id number] #### [facility] [address], [place] [address]Lyqzvxkyqs Visit Summaryon 05-68-6838Fbsvtaikhi Visit Summary Ambulatory Visit Summary ALEX ANDERSON [...] Eboni Anderson PA-C Where: [facility] [address] [place] [address] [place] [address]- You Need to Schedule the Following Appointments Follow Up with ARLENE CASILLAS, ADRIA Sterling When: Where: [facility] [address], [place] [address]- Medications What How Much When Instructions Unchanged [...] History of bladder c (more content not included)...[facility] 64-67-4489AjtooxwzoBpzigkysv From: Dana Rivas To: EU - Recalls Samuels; Sent: 08/06/2024 15:16:19 EDT Show up: 01/24/2025 15:16:00 EDT Subject: cysto/fish/cytol Due Date/Time: 02/21/2025 15:16:00 EDT Reminder/Recall Patient is due in Mar 2025 for 6 month cysto/fish/cytol, bt ck Patient is due in October 2025 for 1 year cysto/FISH/cytol, bt ckNoLutheran HospitalUroVysion Fish and Urine Cyto ([facility])on 84-34-1579FVPK Method of ExtractionBladder WashNoLutheran HospitalComment on above: Performed By: #### [id number] #### [facility] [address], [place] [address]NEPS Number of Ccbw4Chwsphw Interpretation [facility] HospitalComment on above:Performed By: #### [id number] #### [facility] [address], [place] [address]LTGR SpecimenBladder WashTrinity Health System Comment on above:Performed By: #### [id number] #### [facility] [address], [place] [address]KWDE Type of ServiceTechnical OnlyNoLutheran HospitalComment on above:Performed By: #### [id number] #### [facility] [address] [facility], [place] [address]Eqmfdtp Office/Clinic Noteon 36-02-8743Euwvbam Office/Clinic NoteUrology Office/Clinic Note Chief Complaint Cysto [...] Katia Macias, URL [facility] [address], [place] [address]- Additional Instructions: 1 yr surveillance cysto/bt ck/FISH/cytol [...] mg oral tablet, extended (more content not included)...[facility] Health SystemComment on above:Result Comment: Electronically Signed By: Katia SAMUELS MD\.br\Date and Time Signed: 11/16/24 14:52 EDT\.br\Electronically Co-Signed By: Citlalli Rushing\.br\Date and Time Co-Signed: 11/16/24 14:44 EDTAmbulatory Visit Summaryon 36-32-6381Birsgrnvvv Visit SummaryAmbulatory Visit Summary ANDERSONALEX :1945 Visit Date:11/02/2024 Ambulatory Visit Instructions Your [...] CASILLAS, Katia Macias Where: [facility] [address] [place] [address]- Medications What How Much When Instructions Unchanged [...] you for choosing us for your care. [facility] Health SystemErythrocyte distribution width Auto (RBC) [Ratio]on 80-35-5716Xcxjmerdinb distribution width (RBC) [Ratio] Erythrocyte distribution width [Ratio] by Automated tbalnCqyx86.0-15.0[facility] HospitalEstimated glomerular filtration rate (GFR) non- Americanon 70-35-8324VEA/1.73 sq M.predicted among non-blacks MDRD (S/P/Bld) [Vol rate/Area]Estimated glomerular filtration rate (GFR) non- Low>=60 mL/min/1.73m [address] [place] [address] CBC WITH PLATELET NO DIFFERENTIALon 63-67-2801Ueiyzeulqrq distribution width (RBC) [Ratio]18.7 %High 11.0 - 15.0 %[facility] HealthcareHematocrit (Bld) [Volume fraction]35.8 %Low42.0 - 54.0 %[facility] HealthcareHemoglobin (Bld) [Mass/Vol]10.7 g/dLLow14.0 - 18.0 g/dLNOTN HealthcareInterpretation and review of laboratory resultsAbnormalNODeaconess Incarnate Word Health System (RBC) [Entitic mass]24 pgLow25.9 - 34.0 pgNOUniversity of Missouri Health Care (RBC) [Mass/Vol]29.9 g/dL29.9 - 35.2 g/dLHarry S. Truman Memorial Veterans' HospitalMCV (RBC) [Entitic vol] 80.4 fL80.0 - 94.0 fLHarry S. Truman Memorial Veterans' HospitalPlatelet mean volume (Bld) [Entitic vol]9.6 fL9.5 - 13.5 fLNOFreeman Neosho HospitalTB KCV976RWMG The Christ HospitalTBH RBC4.45LowNOFreeman Neosho HospitalTB WBC6.7NOFreeman Neosho HospitalCLINISYNCNOMS HealthcareHematocrit Auto (Bld) [Volume fraction]on 95-61-2055Rckcombndq (Bld) [Volume fraction]Hematocrit [Volume Fraction] of Blood by Automated ejodeLro77.0-54.0[facility] HospitalHemoglobin [Mass/volume] in Bloodon 13-41-0086Keqkhowryf (Bld) [Mass/Vol]Hemoglobin [Mass/volume] in XpraxZtl48.0-18.0[facility] HospitalIron binding capacity [Mass/volume] in Serum or Plasmaon 33-05-1363Mqex binding capacity [Mass/Vol]Iron binding capacity [Mass/volume] in Serum or Xyaefm859.0-450.0[facility] HospitalIron saturation [Mass Fraction] in Serum or Plasmaon 37-90-5979Hvog saturation [Mass fraction] Iron saturation [Mass Fraction] in Serum or PlasmaParkview Health Montpelier HospitalLaboratory - Chemistry and Chemistry - challengeon 49-10-0761Bjqcopo [Mass/Vol]3.3 g/dLLow3.4-5.0[facility] HospitalCalcium [Mass/Vol] 8.7 mg/dL8.5-10.1FProMedica Toledo HospitalChloride [Moles/Vol]104 mmol/L 98-107[facility] HospitalCO2 [Moles/Vol]29.3 mmol/L21.0-32.0 [facility] HospitalCobalamin (Vitamin B12) [Mass/Vol]593 pg/mL 232-1245[facility] Montpelier HospitalComment on above:Performed at: [facility] [address] [id number] Director: Morgan Carpenter PhD, Phone: [phone] [Mass/Vol]2.17 mg/dLHigh0.70-1.30 [facility] HospitalGFR/1.73 sq M.predicted MDRD (S/P/Bld) [Vol rate/Area]36 mL/min/{1.73_m2}Low>=60 mL/min/1.73m 2FProMedica Toledo HospitalGlucose [Mass/Vol]95 mg/aA46-912IlbpzswtyParkview Health Montpelier HospitalIron [Mass/Vol]34.0 ug/dLLow65.0-175.0[facility] HospitalMagnesium [Mass/Vol]2.1 mg/dL1.8-2.4FProMedica Toledo HospitalPotassium [Moles/Vol] 3.4 mmol/LLow3.5-5.1FOhioHealth Grant Medical Centerodium [Moles/Vol]144 mmol/N244-675RtvnllpxqParkview Health Montpelier HospitalUrea nitrogen [Mass/Vol]35.0 mg/dL High7.0-18.0[facility] HospitalUrea nitrogen/Creatinine [Mass ratio]16.1 mg/mgParkview Health Montpelier HospitalLaboratory - Urinalysison 86-32-3439Hcgwhvj (U) [Mass/Vol]54.5 mg/dLHigh<=11.9[facility] HospitalLeukocytes [#/volume] corrected for nucleated erythrocytes in Blood by Automated counon 47-99-7782TZQ corrected for nucl RBC Auto (Bld) [#/Vol] Leukocytes [#/volume] corrected for nucleated erythrocytes in Blood by Automated coun4.0-11.0[facility] HospitalMCH Auto (RBC) [Entitic mass]on 28-99-7001WUD (RBC) [Entitic mass]MCH [Entitic mass] by Automated countLow 25.9-34.0[facility] HospitalMCHC Auto (RBC) [Mass/Vol]on 36-53-0241GWEV (RBC) [Mass/Vol]MCHC [Mass/volume] by Automated count29.9-35.2 [facility] HospitalMCV Auto (RBC) [Entitic vol]on 17-03-2301JSZ (RBC) [Entitic vol]MCV [Entitic volume] by Automated count80.0-94.0[facility] HospitalNo Panel Informationon 15-19-1096Gddis Random Creatinine 77.97 mg/dL20.00-300.00[facility] HospitalFolate39.70 ng/mL 8.60-58.90[facility] HospitalPhosphorus Level3.4 mg/dL2.6-4.7 [facility] HospitalPlatelet mean volume Auto (Bld) [Entitic vol]on 83-08-9369Snslmqzf mean volume (Bld) [Entitic vol]Platelet mean volume [Entitic volume] in Blood by Automated count9.5-13.5FProMedica Toledo Hospital Platelets Auto (Bld) [#/Vol]on 87-56-5458Yamzmyigq (Bld) [#/Vol]Platelets [#/volume] in Blood by Automated -888IjcnwpcetParkview Health Montpelier Hospital RBC Auto (Bld) [#/Vol]on 00-45-3357NVG (Bld) [#/Vol]Erythrocytes [#/volume] in Blood by Automated countLow4.70-6.10[facility]ner Medical Centererum or plasma anion gap determinationon 88-70-9278Qgwxh gap [Moles/Vol]Serum or plasma anion gap determinationParkview Health Montpelier HospitalUrine protein/creatinine ratioon 47-86-9186Uczxfmg/Creatinine (U) [Ratio]Urine protein/creatinine ratio [facility] HospitalCreatinine (Bld) [Mass/Vol]Ordered By: Margarito Valentine on 93-60-0497Rcimtliqyd [Mass/Vol]Whole blood creatinine measurement High0.6-1.3FProMedica Toledo HospitalComment on above:ER/ESD physician is notified/shown all ISTAT results.Critical values may be confirmed by laboratory testing ifdeemed necessary by ER attending doctor.INR in Platelet poor plasma by Coagulation assayOrdered By: Margarito Valentine on 37-27-3826ZYC Coag (PPP) [Relative time]INR in Platelet poor plasma by Coagulation assayParkview Health Montpelier HospitalComment on above:INR Therapeutic Range A) Pre- [...] CREon 10-11-2024 Creatinine [Mass/Vol]2.1 mg/dLHigh0.6-1.3The [facility] Southpark Physician GroupComment on above:Result Comment: ER/ESD physician is notified/shown all ISTAT results. Critical values may be confirmed by laboratory testing if deemed necessary by ER attending doctor.Performed By: #### ADDONUAPLUS, CUU #### [place] [id number] USAISTAT GFR31.235NormalThe Atrium Health Southpark Physician GroupComment on above:Result Comment: PERFORMED BY: [place] [address] PATHOLOGIST FLEET SALESPERSON ED CRUZ M.D.Performed By: #### ADDZACPLUS, CUU #### [address] [address] USANo Panel InformationOrdered By: Margarito Valentine on 08-17-4813Xtzncmc Estimated GFR (eGFR)31.235[facility] Partial Thromboplastin Timeon 03-62-8577sQRW Coag (Bld) [Time]36.8 sHigh 25.1-36.5The [facility]park Physician GroupComment on above:Result Comment: A hematocrit value greater than 55% may lead to inaccurate results in coagulation testing. Patients having hematocrit values >55% require a special collection tube for coagulation studies. Please contact the laboratory at [phone] for redraw instructions. PERFORMED BY: [place] [address] PATHOLOGIST FLEET SALESPERSON ED CRUZ M.D.Performed By: #### PTT, PT #### [address] [address] USAProthrombin Time INRon 19-96-9895WKG Coag (PPP) [Relative time]1.6 {INR}NormalThe Atrium Health Southpark Physician GroupComment on above:Result Comment: INR Therapeutic [...] - 4.5Performed By: #### PTT, PT #### [facility] [address] [place] [address] USAPT Coag (PPP) [Time]17.9 sHigh9.0-12.9The [facility]park Physician GroupComment on above:Result Comment: A hematocrit value greater than 55% may lead to inaccurate results in coagulation testing. Patients having hematocrit values >55% require a special collection tube for coagulation studies. Please contact the laboratory at [phone] for redraw instructions.Performed By: #### PTT, PT #### [facility] [address] [place] [address] USAProthrombin time (PT)Ordered By: Margarito Valentine on 87-79-9128PC Coag (PPP) [Time]Prothrombin time (PT)High9.0-12.9Parkview Health Montpelier HospitalComment on above:A hematocrit value greater than 55% may lead to inaccurate results in coagulation testing. Patientshaving hematocrit values >55% require a special collection tube for coagulation studies. Please c ontact the laboratory at [phone] for redraw instructions.aPTT in Platelet poor plasma by Coagulation assayOrdered By: Margarito Valentine on 83-29-2828hYIZ Coag (PPP) [Time]Activated partial thromboplastin time (aPTT) in platelet poor plasma by coagulation [facility]25.1-36.5FProMedica Toledo HospitalComment on above:A hematocrit value greater than 55% may lead to inaccurate results in coagulation testing. Patientshaving hematocrit values >55% require a special collection tube for coagulation studies. Please contact the laboratory at [phone] for redraw instructions.Cult,Urineon 51-66-5531Kycl,UrineSpecimen Description .CLEAN CATCH URINE Special Requests Site: Urine Culture ENTEROBACTER CLOACAE COMPLEX >100,000 CFU/ML Report Status FINAL 10/06/2024 SUSCEPTIBILITY Organism ENCLCX Method RITESH Gentamicin <=1 SUSCEPTIBLE Levofloxacin 1 INTERMEDIATE Nitrofurantoin 64 INTERMEDIATE Piperacillin/Tazobactam 64 INTERMEDIATE Tobramycin <=1 SUSCEPTIBLE Trimethoprim/Sulfa <=20 SUSCEPTIBLE SUSCEPTIBILITY Organism ENCLCX Method SUE CARRENO Ceftriaxone SUSCEPTIBLESusceptibleLicking Memorial HospitalComment on above: Performed By: #### OBS #### [facility] [address] [facility] [place] [address] Air Analysis Technician: Milo Engle DOMHPT CULT,URINEon 54-23-4057Kntcoucztvhkfb and review of laboratory resultsAbnormalJORDAN VALLEY MEDICAL [facility]ENTER HealthcareMHPT CULT,URINESpecimen Description .CLEAN CATCH URINENOTN HealthcareMHPT CULT,URINESpecial Requests Site: UrineNOMS HealthcareMHPT CULT,URINECulture ENTEROBACTER CLOACAE COMPLEX >100,000 CFU/MLAbnormalJORDAN VALLEY MEDICAL CENTER HealthcarePT CULT,URINEReport Status FINAL 10/06/2024NOTN HealthcareMHPT CULT,URINEMethod MICNOMS HealthcarePT CULT,URINE Gentamicin <=1 SUSCEPTIBLESusceptibleNOTN HealthcarePT CULT,URINELevofloxacin 1 INTERMEDIATEIntermediateNOMS HealthcarePT CULT,URINENitrofurantoin 64 INTERMEDIATEIntermediateNOMS HealthcareMHPT CULT,URINEPiperacillin/Tazobactam 64 INTERMEDIATEIntermediateNOMS HealthcarePT CULT,URINETobramycin <=1 SUSCEPTIBLESusceptibleNOTN HealthcarePT CULT,URINETrimethoprim/Sulfa <=20 SUSCEPTIBLESusceptibleNOTN HealthcareMHPT CULT,URINEMethod ROGERS CARRENO SusceptibleNOTN HealthcarePT CULT,URINECeftriaxone SUSCEPTIBLESusceptibleJORDAN VALLEY MEDICAL [facility]ENTER HealthcareOriginal Ordering Provider: WAQAR ADORNOISYNCJORDAN VALLEY MEDICAL CENTER HealthcareNo Panel Informationon [id number] CULT,URINE SUSCEPTIBILITY SusceptibleNOTN HealthcareMHPT CULT,URINEOrganism ENCLCXSusceptibleNOTN HealthcareBasic Metab w/rfx MGon 92-82-8371Lrtwm gap [Moles/Vol]9 mmol/LNormal 9-16MerFirelands Regional Medical CenterComment on above:Performed By: #### OBS #### [facility] [address] [facility] [place] [address] Air Analysis Technician: Milo Engle DOCalcium [Mass/Vol]8.6 mg/dLNormal8.6-10.4 [facility] HospitalComment on above:Performed By: #### OBS #### [facility] [address] [place] [address] Air Analysis Technician: Milo Engle DOChloride [Moles/Vol]105 mmol/FVgtwlv07-813 [facility] HospitalComhills & dales general hospital on above:Performed By: #### OBS #### [facility] [place] [address] Air Analysis Technician: Milo Engle DOCO2 [Moles/Vol]27 mmol/CFbwcdv08-10YmxcmLicking Memorial HospitalComment on above:Performed By: #### OBS #### [facility] [place] [address] Air Analysis Technician: Milo Engle DOCreatinine [Mass/Vol]1.9 mg/dLHigh0.7-1.2 [facility] HospitalComment on above:Performed By: #### OBS #### [facility] [place] [address] Air Analysis Technician: Milo Engle DOGFR/1.73 sq M.predicted among non-blacks MDRD (S/P/Bld) [Vol rate/Area]35 mL/min/{1.73_m2}Low>60[facility] Comment on above:Result Comment: These results are [...] renal tubular secretion.Performed By: #### OBS #### [facility] [address] [place] [address] Air Analysis Technician: Milo Engle DOGlucose [Mass/Vol]97 mg/bQNnhfhh03-44IwwhvWyandot Memorial HospitalComhills & dales general hospital on above:Performed By: #### OBS #### [facility] [address] [place] [address] Air Analysis Technician: Milo Engle DOPotassium [Moles/Vol]3.3 mmol/LLow3.7-5.3 [facility] HospitalComhills & dales general hospital on above:Performed By: #### OBS #### [facility] [address] [place] [address] Air Analysis Technician: Milo Engle DOSodium [Moles/Vol]141 mmol/MQclvwr946-430 [facility] HospitalComhills & dales general hospital on above:Performed By: #### OBS #### [facility] [address] [place] [address] Air Analysis Technician: Milo Engle DOUrea nitrogen [Mass/Vol]24 mg/dLHigh8-23L[facility] HospitalComhills & dales general hospital on above:Performed By: #### OBS #### [facility] [address] [place] [address] Air Analysis Technician: Milo Engle DOBasic Metabolic Panel w/ Reflex to MGon 66-16-0604Tyvxm gap [Moles/Vol]9 mmol/L9 - 16 mmol/LBon [facility] Calcium [Mass/Vol]8.6 mg/dL8.6 - 10.4 mg/dLBon SecMcKitrick HospitalChloride [Moles/Vol]105 mmol/L98 - 107 mmol/LBon Providence HospitalCO2 [Moles/Vol]27 mmol/L20 - 31 mmol/LBon Providence HospitalCreatinine [Mass/Vol]1.9 mg/dLHigh 0.7 - 1.2 mg/dLBon Providence HospitalEst, Glom Filt Mezr34Lxe- PINFBon Providence HospitalComment on above: These results are not [...] secretion. Glucose [Mass/Vol]97 mg/dL74 - 99 mg/dLBon Providence HospitalInterpretation and review of laboratory resultsAbnormalChesapeake Regional Medical CenterPotassium [Moles/Vol]3.3 mmol/LLow3.7 - 5.3 mmol/LBon Providence HospitalSodium [Moles/Vol]141 mmol/L136 - 145 mmol/LBon Providence HospitalUrea nitrogen [Mass/Vol]24 mg/dLHigh8 - 23 mg/dLBon Spe[facility]fish Surgery CenterCBC with Auto Differentialon 28-47-2391Seeiggmka (Bld) [#/Vol]0.05 10*3/uL [facility] CenterBasophils/100 WBC (Bld)1 %0 - 2 %[facility] CenterEosinophils (Bld) [#/Vol]0.2 10*3/uLBon [facility] Eosinophils/100 WBC (Bld)4 %0 - 4 %[facility] CenterErythrocyte distribution width (RBC) [Ratio]21.2 %High11.5 - 14.9 %[facility] Hematocrit (Bld) [Volume fraction]35.3 %Low41 - 53 %[facility] Hemoglobin (Bld) [Mass/Vol]11.5 g/dLLow13.5 - 17.5 g/dLBon [facility] Immature granulocytes (Bld) [#/Vol]0 10*3/uLChesapeake Regional Medical CenterImmature granulocytes/100 WBC (Bld)0 %0Bon Providence HospitalInterpretation and review of laboratory resultsAbnormalChesapeake Regional Medical CenterLymphocytes/100 WBC (Bld)30 %24 - 44 %Bon Providence HospitalLymphocytes/100 WBC (Bld)1.53 %[facility] HospitalH (RBC) [Entitic mass]24.8 pgLow26 - 34 pgChesapeake Regional Medical Center MCHC (RBC) [Mass/Vol]32.7 g/dL31 - 37 g/dLBon Wilson HealthV (RBC) [Entitic vol]75.8 fLLow80 - 100 fLChesapeake Regional Medical CenterMonocytes/100 WBC (Bld)7 %1 - 7 %[facility] CenterMonocytes/100 WBC (Bld)0.36 %[facility] Medical CenterMorphology Ian (Bld) [Interp]ANISOCYTOSIS PRESENTChesapeake Regional Medical CenterMorphology Ian (Bld) [Interp]HYPOCHROMIA PRESENTChesapeake Regional Medical Center Morphology Ian (Bld) [Interp]FEW ELLIPTOCYTESChesapeake Regional Medical Center Neutrophils/100 WBC (Bld)58 %36 - 66 %[facility] CenterPlatelet mean volume (Bld) [Entitic vol]8.1 fL6.0 - 12.0 fLBon Providence HospitalPlatelets (Bld) [#/Vol]173 10*3/uLBon Providence HospitalRBC (Bld) [#/Vol]4.65 10*6/uL4.5 - 5.9 m/uLChesapeake Regional Medical CenterSegmented neutrophils/100 WBC (Bld)2.96 %[facility] Medical CenterWBC other (Bld) [#/Vol]5.1Bon Spe[facility]fish Surgery CenterCBC with Diffon 31-73-9065Ltc. Basophil0.05 k/uLNormal 0.0-0.2[facility] HospitalComment on above:Performed By: #### OBS #### [facility] [address] [place], [place] [address] Air Analysis Technician: Milo Engle DOAbs.Imm.Granulocyte0.00 k/uLNormal0.00-0.30 [facility] HospitalComment on above:Performed By: #### OBS #### [facility] [address] [facility] [place] [address] Air Analysis Technician: Milo Engle DOAbs.Neutrophil (Seg)2.96 k/uLNormal1.3-9.1 [facility] HospitalComhills & dales general hospital on above:Performed By: #### OBS #### [facility] [place] [address] Air Analysis Technician: Milo Engle DOBasophils/100 WBC (Bld)1 %Normal0-2MercTriHealth Good Samaritan HospitalComhills & dales general hospital on above:Performed By: #### OBS #### [facility] [address] [place] [address] Air Analysis Technician: Milo Engle DOEosinophils (Bld) [#/Vol]0.20 10*3/uLNormal 0.0-0.4[facility] HospitalComhills & dales general hospital on above:Performed By: #### OBS #### [facility] [address] [place] [address]. [place] [address] Air Analysis Technician: Milo Engle DOEosinophils/100 WBC (Bld)4 %Normal0-4[facility] HospitalComhills & dales general hospital on above:Performed By: #### OBS #### [facility] [address] [place] [address] Air Analysis Technician: Milo Engle DOImmature granulocytes/100 WBC (Bld)0 %Normal0 [facility] HospitalComhills & dales general hospital on above:Performed By: #### OBS #### [facility] [address] [place] [address] Air Analysis Technician: Milo Engle DOLymphocytes (Bld) [#/Vol]1.53 10*3/uLNormal 1.0-4.8[facility] HospitalComhills & dales general hospital on above:Performed By: #### OBS #### [facility] [address] [place] [address] Air Analysis Technician: Milo Engle DOLymphocytes/100 WBC (Bld)30 %Owdiwt06-77JtqpwOhioHealth Hardin Memorial Hospital on above:Performed By: #### OBS #### [facility] [address] [place] [address] Air Analysis Technician: Milo Engle DOMonocytes (Bld) [#/Vol]0.36 10*3/uLNormal 0.1-1.3[facility] HospitalComhills & dales general hospital on above:Performed By: #### OBS #### [facility] [address] [place] [address] Air Analysis Technician: Milo Engle DOMonocytes/100 WBC (Bld)7 %Normal1-7[facility] HospitalComhills & dales general hospital on above:Performed By: #### OBS #### [facility] [address] [place] [address] Air Analysis Technician: Milo Engle DOMorphology Ian (Bld) [Interp]ANISOCYTOSIS PRESENTNormalOhioHealth Hardin Memorial Hospital on above:Result Comment: HYPOCHROMIA PRESENT FEW ELLIPTOCYTESPerformed By: #### OBS #### [facility] [address] [place] [address] Air Analysis Technician: Milo Engle DONeutrophil (Seg)58 %Mikige67-86IzhjrFirelands Regional Medical CenterComhills & dales general hospital on above:Performed By: #### OBS #### [facility] [address] [place] [address] Air Analysis Technician: Milo Engle DOErythrocyte distribution width (RBC) [Ratio] 21.2 %High11.5-14.9[facility] on above:Performed By: #### OBS #### [facility] [address] [place] [address] Air Analysis Technician: Milo Engle DOHematocrit (Bld) [Volume fraction]35.3 %Low 41-53[facility] HospitalComhills & dales general hospital on above:Performed By: #### OBS #### [facility] [address] [place] [address] Air Analysis Technician: Milo Engle DOHemoglobin (Bld) [Mass/Vol]11.5 g/dLLow 13.5-17.5[facility] HospitalComhills & dales general hospital on above:Performed By: #### OBS #### [facility] [place] [address] Air Analysis Technician: Milo Engle DOMCH (RBC) [Entitic mass]24.8 xuSec28-85BclbpLicking Memorial HospitalComhills & dales general hospital on above:Performed By: #### OBS #### [facility] [address] [place] [address] Air Analysis Technician: Milo Engle DOMCHC (RBC) [Mass/Vol]32.7 g/aJAuturk27-08 [facility] HospitalComhills & dales general hospital on above:Performed By: #### OBS #### [facility] [place] [address] Air Analysis Technician: Milo Engle DOMCV (RBC) [Entitic vol]75.8 cRQfa09-279RwgxiLicking Memorial HospitalComhills & dales general hospital on above:Performed By: #### OBS #### [facility] [place] [address] Air Analysis Technician: Milo Engle DOPlatelet mean volume (Bld) [Entitic vol]8.1 fLNormal6.0-12.0[facility] HospitalComhills & dales general hospital on above:Performed By: #### OBS #### [facility] [place] [address] Air Analysis Technician: Milo Engle DOPlatelets (Bld) [#/Vol]173 10*3/uLNormal 150-450L[facility] HospitalComment on above:Performed By: #### OBS #### [facility] [address] [place] [address] Air Analysis Technician: Milo Engle DORBC (Bld) [#/Vol]4.65 10*6/uLNormal4.5-5.9 [facility] HospitalComment on above:Performed By: #### OBS #### [facility] [address] [place] [address] Air Analysis Technician: Milo Engle DOWBC (Bld) [#/Vol]5.1 10*3/uLNormal3.5-11.0 [facility] HospitalComhills & dales general hospital on above:Performed By: #### OBS #### [facility] [address] [place] [address] Air Analysis Technician: Milo Engle DOEKG 12 LeadOrdered By: All Cornejo on 20-39-0601Dmeuaq Hlhr69VIAGpg [facility] Work Phone: [phone] Sewx28wlesmvcWpt SecFeeX [facility] Work Phone: [phone]-R [id number] msBon [facility] Work Phone: [phone]-T [id number] msBon [facility] Work Phone: [phone] [id number] msBon [facility] Work Phone: [phone] Calculation (Tyson)471 msBon [facility] Work Phone: R Sibley-16degreesBon [facility] Work Phone: [phone] Qmeq007nbjrvuwWob [facility] Work Phone: [phone] Ampa40PSORfb [facility] Work Phone: Bon [facility] [employer] Work Phone: ekg 12 Leadon 23-46-9712Pgybk rhythm with 1st degree A-V block Incomplete left bundle branch block ST & T wave abnormality, consider anterior ischemia Abnormal ECG When compared with ECG of 04-Oct-2024 15:45, (unconfirmed) No significant change was foundENDLESS MOUNTAINS [facility]S All Mcintosh DO - 10/05/2024 Sinus rhythm with 1st degree A-V block Incomplete left bundle branch block ST & T wave abnormality, consider anterior ischemia Abnormal ECG When compared with ECG of 04-Oct-2024 15:45, (unconfirmed) No significant change was found Bon Providence HospitalIron Binding Cap.on 10-05-2024% Fe Swqkxzgbui19 %Normal 20-55Mer[facility]ot Memorial HospitalComment on above:Performed By: #### OBS #### [facility] [address] [place] [address] Air Analysis Technician: Milo Engle DOIron [Mass/Vol]103 ug/cQYqwnuv48-626CixvrLicking Memorial HospitalComment on above:Performed By: #### OBS #### [facility] [address] [place] [address] Air Analysis Technician: Milo Engle DOTotal Fe Binding Djp527 ug/zFDhrdjz100-305 [facility] HospitalComhills & dales general hospital on above:Performed By: #### OBS #### [facility] [address] [place] [address] Air Analysis Technician: Milo Engle DOUnbound Fe Bind Ffh601 ug/sLLmzhlv939-465 [facility] HospitalComhills & dales general hospital on above:Performed By: #### OBS #### [facility] [address] [place] [address] Air Analysis Technician: Milo Engle DOIron and TIBCon 39-02-6322Gprz [Mass/Vol]103 ug/dL61 - 157 ug/dLBon Memorial Health Systemn binding capacity [Mass/Vol]250 ug/dL250 - 450 ug/dLBon Memorial Health Systemn saturation [Mass fraction]41 % 20 - 55 %[facility] CenterUIBC147 ug/dL112 - 347 ug/dLBon Spearfish Surgery CenterMagnesiumon 84-04-4084Cnxqtjnga [Mass/Vol]2.3 mg/dL1.6 - 2.4 mg/dLBon Spearfish Surgery CenterMagnesium [Mass/Vol]2.3 mg/dLNormal1.6-2.4[facility] HospitalComhills & dales general hospital on above: Performed By: #### OBS #### [facility] [address] [place] [address] Air Analysis Technician: Milo Engle DOPTon 61-21-2552CSA Coag (PPP) [Relative time] 2.0 {INR}NormalOhioHealth Hardin Memorial Hospital on above:Result Comment: Therapeutic Range: Moderate Anticoagulant Intensity: INR = 2.0-3.0 High Anticoagulant Intensity: INR = 2.5-3.5Performed By: #### OBS #### [facility] [address] [place] [address] Air Analysis Technician: Milo Engle DOPT Coag (PPP) [Time]24.9 sHigh11.8-14.6[facility] on above:Performed By: #### OBS #### [facility] [address] [place] [address] Air Analysis Technician: Milo Engle DOProtime-INRon 07-52-2467QIZ Coag (PPP) [Relative time]2 {INR}[facility] on above: Therapeutic Range: Moderate Anticoagulant Intensity: INR = 2.0-3.0 High Anticoagulant Intensity: INR = 2.5-3.5 Interpretation and review of laboratory resultsAbnormalChesapeake Regional Medical Center PT Coag (PPP) [Time]24.9 sHighBon Providence HospitalBon [facility] Hospital Basic Metab w/rfx MGon 39-85-4383Veinf gap [Moles/Vol]8 mmol/LLow9-16[facility] HospitalComment on above:Performed By: #### MAGY JAMES, PT #### [facility] [address] [place] [address] Air Analysis Technician: Milo Engle DOCalcium [Mass/Vol]8.7 mg/dLNormal8.6-10.4 [facility] HospitalComhills & dales general hospital on above:Performed By: #### MAGY JAMES, PT #### [facility] [address] [place] [address] Air Analysis Technician: Milo Engle DOChloride [Moles/Vol]109 mmol/OQokv96-148LibrbLicking Memorial HospitalComment on above:Performed By: #### MAGY JAMES, PT #### [facility] [address] [place] [address] Air Analysis Technician: Milo Engle DOCO2 [Moles/Vol]27 mmol/IKblgae03-58IuhnjLicking Memorial HospitalComment on above:Performed By: #### MAGY JAMES, PT #### [facility] [address] [place] [address] Air Analysis Technician: Milo Engle DOCreatinine [Mass/Vol]1.8 mg/dLHigh0.7-1.2 [facility] HospitalComhills & dales general hospital on above:Performed By: #### MAGY JAMES, PT #### [facility] [address] [place] [address] Air Analysis Technician: Milo Engle, DOGFR/1.73 sq M.predicted among non-blacks MDRD (S/P/Bld) [Vol rate/Area]38 mL/min/{1.73_m2}Low>60[facility] Comment on above:Result Comment: These results are [...] secretion.Performed By: #### MAGY JAMES, PT #### [facility] [facility] [place] [address] Air Analysis Technician: Milo Engle DOGlucose [Mass/Vol]103 mg/dQFcjp81-95HpvjdWyandot Memorial HospitalComment on above:Performed By: #### MAGY JAMES, PT #### [facility] [address] [place] [address]. [place] [address] Air Analysis Technician: Milo Engle DOPotassium [Moles/Vol]3.8 mmol/LNormal3.7-5.3 [facility] HospitalComhills & dales general hospital on above:Performed By: #### MAGY JAMES, PT #### [facility] [address] [place] [address]. [place] [address] Air Analysis Technician: Milo Engle DOSodium [Moles/Vol]144 mmol/ELbjtgi252-286 [facility] HospitalComhills & dales general hospital on above:Performed By: #### MAGY JAMES, PT #### [facility] [address] [place] [address] Air Analysis Technician: Milo Engle DOUrea nitrogen [Mass/Vol]22 mg/dLNormal8-23 [facility] HospitalComhills & dales general hospital on above:Performed By: #### MAGY JAMES, PT #### [facility] [address] [place] [address] Air Analysis Technician: Milo Engle DOBasic Metabolic Panel w/ Reflex to MGon 68-77-0056Vdnwb gap [Moles/Vol]8 mmol/LLow9 - 16 mmol/LBon [facility] Calcium [Mass/Vol]8.7 mg/dL8.6 - 10.4 mg/dLBon Providence HospitalChloride [Moles/Vol]109 mmol/LHigh98 - 107 mmol/LBon Providence HospitalCO2 [Moles/Vol] 27 mmol/L20 - 31 mmol/LBon Providence HospitalCreatinine [Mass/Vol]1.8 mg/dL High0.7 - 1.2 mg/dLBon Providence HospitalEst, Glom Filt Ghwd55Stg- PINFBon Providence HospitalComment on above: These results are not [...] that affects renal tubular secretion. Glucose [Mass/Vol]103 mg/nHCmgb16 - 99 mg/dLBon [facility] Interpretation and review of laboratory resultsAbnormalBon [facility] Potassium [Moles/Vol]3.8 mmol/L3.7 - 5.3 mmol/LBon Providence HospitalSodium [Moles/Vol]144 mmol/L136 - 145 mmol/LBon Providence HospitalUrea nitrogen [Mass/Vol]22 mg/dL8 - 23 mg/dLBon [facility] Blood Occult Stool Screen #1on [id number], Stool #[id number] [facility] AMW FoundationHemoglobin.gastrointestinal spec 1 Ql (Stl)NegativeNEGATIVEBon Providence HospitalTime, Stool #[id number] [facility] CenterCBC with Auto Differentialon 18-03-7158Btwhqpxkk (Bld) [#/Vol]0.03 10*3/uLBon Providence HospitalBasophils/100 WBC (Bld)1 %0 - 2 %[facility] Eosinophils (Bld) [#/Vol]0.29 10*3/uLBon Secours Mercy HealthEosinophils/100 WBC (Bld)4 %0 - 4 %[facility] HealthErythrocyte distribution width (RBC) [Ratio]20 %High11.5 - 14.9 %[facility] HealthHematocrit (Bld) [Volume fraction]38.7 %Low41.0 - 53.0 %[facility] HealthHemoglobin (Bld) [Mass/Vol]11.2 g/dLLow13.5 - 17.5 g/dLBon Secours [facility] Companyy HealthImmature granulocytes (Bld) [#/Vol][facility] HealthImmature granulocytes/100 WBC (Bld)0 %0[facility] HealthInterpretation and review of laboratory results AbnormalBon Secours Mercy HealthLymphocytes/100 WBC (Bld)17 %Low24 - 44 %[facility] HealthLymphocytes/100 WBC (Bld)1.13 %[facility] HealthMCH (RBC) [Entitic mass]24 pgLow26.0 - 34.0 pgBon Secours OhiohealthMCHC (RBC) [Mass/Vol]28.9 g/dLLow31.0 - 37.0 g/dLBon Secours [facility] Companyy HealthMCV (RBC) [Entitic vol]83 fL80.0 - 100.0 fLBon Secours Mercy HealthMonocytes/100 WBC (Bld)15 %High 3 - 12 %[facility] HealthMonocytes/100 WBC (Bld)0.98 %[facility] HealthNeutrophils/100 WBC (Bld)63 %36 - 66 %[facility] HealthNucleated RBC/100 WBC (Bld) [Ratio]0 %0 per 100 WBCBon Secours Regency Hospital Companyy HealthPlatelet mean volume (Bld) [Entitic vol]10.2 fL8.0 - 13.5 fLBon Secours Regency Hospital Companyy HealthPlatelets (Bld) [#/Vol]195 10*3/uLBon Secours [facility] Companyy HealthRBC (Bld) [#/Vol]4.66 10*6/uL 4.21 - 5.77 m/uLBon Secours [facility] Companyy HealthSegmented neutrophils/100 WBC (Bld)4.2 % Bon Providence HospitalWBC other (Bld) [#/Vol]6.7Bon [facility] HospitalBon Providence HospitalCBC with Diffon 06-53-2364Gsk. Basophil0.03 k/uLNormal 0.00-0.20L[facility] HospitalComment on above:Performed By: #### MAGY JAMES, PT #### [facility] [place] [address] Air Analysis Technician: Milo Engle DOAbs.Imm.Granulocyte<0.27Pnalmy1.00-0.30[facility] HospitalComhills & [facility] on above:Performed By: #### MAGY JAMES, PT #### [facility] [address] [place] [address] Air Analysis Technician: Milo Engle DOAbs.Neutrophil (Seg)4.20 k/uLNormal1.50-8.10 [facility] HospitalComhills & dales [facility] hospital on above:Performed By: #### MAGY JAMES, PT #### [facility] [address] [place] [address] Air Analysis Technician: Milo Engle DOBasophils/100 WBC (Bld)1 %Normal0-2[facility] HospitalComment on above:Performed By: #### MAGY JAMES, PT #### [facility] [address] [place] [address] Air Analysis Technician: Milo Engle DOEosinophils (Bld) [#/Vol]0.29 10*3/uLNormal 0.00-0.44[facility] HospitalComhills & dales general hospital on above:Performed By: #### MAGY JAMES, PT #### [facility] [address] [place] [address] Air Analysis Technician: Fanelly, Milo, DOEosinophils/100 WBC (Bld)4 %Normal0-4[facility] on above:Performed By: #### MAGY JAMES, PT #### [facility] [address] [place] [address] Air Analysis Technician: Milo Engle DOErythrocyte distribution width (RBC) [Ratio] 20.0 %High11.5-14.9[facility] HospitalComhills & dales general hospital on above:Performed By: #### MAGY JAMES, PT #### [facility] [address] [place] [address] Air Analysis Technician: Milo Engle DOHematocrit (Bld) [Volume fraction]38.7 %Low 41.0-53.0[facility] on above:Performed By: #### MAGY JAMES, PT #### [facility] [address] [place] [address] Air Analysis Technician: Milo Engle DOHemoglobin (Bld) [Mass/Vol]11.2 g/dLLow 13.5-17.5[facility] on above:Performed By: #### MAGY JAMES, PT #### [facility] [address] [place] [address] Air Analysis Technician: Milo Engle DOImmature granulocytes/100 WBC (Bld)0 %Normal0 [facility] HospitalComhills & d[facility] on above:Performed By: #### MAGY JAMES, PT #### [facility] [address] [place] [address] Air Analysis Technician: Milo Engle DOLymphocytes (Bld) [#/Vol]1.13 10*3/uLNormal 1.10-3.70[facility] HospitalComhills & dales [facility] hospital on above:Performed By: #### MAGY JAMES, PT #### [facility] [address] [place] [address] Air Analysis Technician: Milo Engle DOLymphocytes/100 WBC (Bld)17 %Mmg21-89RwesuOhioHealth Hardin Memorial Hospital on above:Performed By: #### MAGY JAMES, PT #### [facility] [place] [address] Air Analysis Technician: Milo Engle DOMCH (RBC) [Entitic mass]24.0 pgLow26.0-34.0 [facility] on above:Performed By: #### MAGY JAMES, PT #### [facility] [address] [place] [address] Air Analysis Technician: Milo Engle DOMCHC (RBC) [Mass/Vol]28.9 g/dLLow31.0-37.0 [facility] on above:Performed By: #### MAGY JAMES, PT #### [facility] [address] [place] [address] Air Analysis Technician: Milo Engle DOMCV (RBC) [Entitic vol]83.0 fLNormal 80.0-100.0[facility] on above:Performed By: #### MAGY JAMES, PT #### [facility] [address] [place] [address] Air Analysis Technician: Milo Engle DOMonocytes (Bld) [#/Vol]0.98 10*3/uLNormal 0.10-1.20[facility] on above:Performed By: #### MAGY JAMES, PT #### [facility] [address] [place] [address] Air Analysis Technician: Milo Engle DOMonocytes/100 WBC (Bld)15 %High3-12[facility] on above:Performed By: #### MAGY JAMES, PT #### [facility] [address] [facility] [place] [address] Air Analysis Technician: Milo Engle DONeutrophil (Seg)63 %Mqcjmd27-80RxhtdOhioHealth Hardin Memorial Hospital on above:Performed By: #### ERIKA, CDP, PT #### [facility] [address] [facility] [place] [address] Air Analysis Technician: Milo Engle DONRBC Automated0.0 per 100 SUIGaecht8CtojwLicking Memorial HospitalComhills & dales general hospital on above:Performed By: #### MAGY JAMES, PT #### [facility] [facility] [place] [address] Air Analysis Technician: Milo Engle DOPlatelet mean volume (Bld) [Entitic vol]10.2 fLNormal8.0-13.5[facility] on above:Performed By: #### MAGY JAMES, PT #### [facility] [facility] [place] [address] Air Analysis Technician: Milo Engle DOPlatelets (Bld) [#/Vol]195 10*3/uLNormal 150-450[facility] on above:Performed By: #### MAGY JAMES, PT #### [facility] [facility] [place] [address] Air Analysis Technician: Milo Engle DORBC (Bld) [#/Vol]4.66 10*6/uLNormal4.21-5.77 [facility] on above:Performed By: #### MAGY JAMES, PT #### [facility] [address] [facility] [place] [address] Air Analysis Technician: Milo Engle DOWBC (Bld) [#/Vol]6.7 10*3/uLNormal3.5-11.0 [facility] HospitalComment on above:Performed By: #### BMPX, CDP, PT #### [facility] [address] [facility] [place] [address] Air Analysis Technician: Milo Engle DOMycoplasma Ab, IgMon 39-65-3346Rcjqewrhvj Ab, IgM0.11Normal<0.91MerFirelands Regional Medical CenterComment on above:Result Comment: Reference Range: <=0.90 Negative 0.91-1.09 Equivocal >=1.10 PositivePerformed By: #### OBS #### [facility] [address] [facility] [place] [address] Air Analysis Technician: Milo Engle DOMycoplasma Ab,IgMon 10-04-2024M. pneumoniae IgM IA Ql (S)0.11NINF - 0.91Bon Providence HospitalComment on above: Reference Range: <=0.90 Negative 0.91-1.09 Equivocal >=1.10 Positive [facility] Panel InformationOrdered By: Alex Alcala on 45-30-3556Luxm surface area Derived from formula2.04 m2[facility] Work Phone: [facility] Work Phone: No Panel Informationon 32-43-8851Gp evidence of deep vein or superficial vein [...] cm.Color flow seen in residual lumen. Plate Worker Details A pollard scale, color Doppler imaging and spectral Doppler analysis ultrasound was performed. During the study longitudinal and transverse views were obtained. Study was technically difficult due to: bedside exam, patient positioning and edema.[facility] CV CPACSRadiology Study observation (narrative)Pepe Haines [facility]Occ Bld, Erendira Ortiz [id number] Blood 1NegativeNormalNEGLicking Memorial HospitalComment on above:Performed By: #### OBS #### [facility] [address] [facility] [place] [address] Air Analysis Technician: Milo Engle DOSpecimen 1 [id number] Hospital on above:Performed By: #### OBS #### [facility] [address] [facility] [place] [address] Air Analysis Technician: Milo Engle DOSpecimen 1 [id number] Hospital on above:Performed By: #### OBS #### [facility] [address] [facility] [place] [address] Air Analysis Technician: Milo Engle DOPTon [id number] Coag (PPP) [Relative time] 1.7 {INR}[facility] on above:Result Comment: Therapeutic Range: Moderate Anticoagulant Intensity: INR = 2.0-3.0 High Anticoagulant Intensity: INR = 2.5-3.5Performed By: #### EMILYXMAGY, PT #### [facility] [address] [place] [address] Air Analysis Technician: Milo Engle DOPT Coag (PPP) [Time]22.0 sHigh11.8-14.6MWyandot Memorial HospitalComhills & dales general hospital on above:Performed By: #### MAGY JAMES, PT #### [facility] [address] [place] [address] Air Analysis Technician: Milo Engle DOProtime-INRon 83-72-4205QJF Coag (PPP) [Relative time]1.7 {INR}[facility] CenterComh[facility] & d[facility] on above: Therapeutic Range: Moderate Anticoagulant Intensity: INR = 2.0-3.0 High Anticoagulant Intensity: INR = 2.5-3.5 Interpretation and review of laboratory resultsAbnormalChesapeake Regional Medical Center PT Coag (PPP) [Time]22.0 sHighBon [facility] B12/Folate Panelon 70-47-9484Vmvmz Acid28.5 ng/mLHigh4.8-24.2MWyandot Memorial HospitalComment on above:Performed By: #### MAGY JAMES, PT #### [facility] [address] [place] [address] Air Analysis Technician: Milo Engle DOCobalamin (Vitamin B12) [Mass/Vol]377 pg/mL Pmrtnm039-0872ZxaxlLicking Memorial HospitalComhills & dales general hospital on above:Performed By: #### MAGY JAMES, PT #### [facility] [address] [place] [address] Air Analysis Technician: Milo Engle DOBasic Metab w/rfx MGon 84-62-8444Bedvk gap [Moles/Vol]8 mmol/LLow9-16[facility] HospitalComhills & dales general hospital on above:Performed By: #### MAGY JAMES, PT #### [facility] [address] [facility] [place] [address] Air Analysis Technician: Milo Engle DOCalcium [Mass/Vol]8.3 mg/dLLow8.6-10.4L[facility] HospitalComment on above:Performed By: #### EMILYX CDP, PT #### [facility] [address] [facility] [place] [address] Air Analysis Technician: Milo Engle DOChloride [Moles/Vol]110 mmol/HPwfz37-252QdkwwLicking Memorial HospitalComment on above:Performed By: #### MAGY JAMES, PT #### [facility] [facility] [place] [address] Air Analysis Technician: Milo Engle DOCO2 [Moles/Vol]24 mmol/YEfcwze85-05GlciyLicking Memorial HospitalComment on above:Performed By: #### MAGY JAMES, PT #### [facility] [address] [facility] [place] [address] Air Analysis Technician: Milo Engle DOCreatinine [Mass/Vol]1.7 mg/dLHigh0.7-1.2 [facility] HospitalComhills & dales general hospital on above:Performed By: #### MAGY JAMES, PT #### [facility] [address] [place] [address] Air Analysis Technician: Milo Engle DOGFR/1.73 sq M.predicted among non-blacks MDRD (S/P/Bld) [Vol rate/Area]40 mL/min/{1.73_m2}Low>60[facility] Comment on above:Result Comment: These results are [...] secretion.Performed By: #### MAGY JAMES, PT #### [facility] [address] [place] [address] Air Analysis Technician: Milo Engle DOGlucose [Mass/Vol]98 mg/mIEkiyvl04-76VvufhWyandot Memorial HospitalComment on above:Performed By: #### MAGY JAMES, PT #### [facility] [address] [place] [address] Air Analysis Technician: Milo Engle DOPotassium [Moles/Vol]3.3 mmol/LLow3.7-5.3 [facility] HospitalComhills & dales general hospital on above:Performed By: #### MAGY JAMES, PT #### [facility] [address] [place] [address] Air Analysis Technician: Milo Engle DOSodium [Moles/Vol]142 mmol/MKeugex628-558 [facility] HospitalComhills & dales general hospital on above:Performed By: #### MAGY JAMES, PT #### [facility] [address] [place] [address] Air Analysis Technician: Milo Engle DOUrea nitrogen [Mass/Vol]24 mg/dLHigh8-23L[facility] HospitalComhills & dales general hospital on above:Performed By: #### MAGY JAMES, PT #### [facility] [address] [place] [address] Air Analysis Technician: Milo Engle DOBasic Metabolic Panel w/ Reflex to MGon 20-66-9445Fcupf gap [Moles/Vol]8 mmol/LLow9 - 16 mmol/LBon [facility]ours [facility] Calcium [Mass/Vol]8.3 mg/dLLow8.6 - 10.4 mg/dLBon Secours [facility] HealthChloride [Moles/Vol]110 mmol/LHigh98 - 107 mmol/LBon Secours OhiohealthCO2 [Moles/Vol] 24 mmol/L20 - 31 mmol/LBon [facility] HospitalCreatinine [Mass/Vol]1.7 mg/dL High0.7 - 1.2 mg/dLBon Providence HospitalEst, Glocésar Filt Vheh22Hxj- PINFBon Providence HospitalComment on above: These results are not [...] secretion. Glucose [Mass/Vol]98 mg/dL74 - 99 mg/dLBon Providence HospitalInterpretation and review of laboratory resultsAbnormalChesapeake Regional Medical CenterPotassium [Moles/Vol]3.3 mmol/LLow3.7 - 5.3 mmol/LBon Providence HospitalSodium [Moles/Vol]142 mmol/L136 - 145 mmol/LBon Providence HospitalUrea nitrogen [Mass/Vol]24 mg/dLHigh8 - 23 mg/dLBon [facility] Surgery CenterCBC with Auto Differentialon 06-71-2402Drzhfnxpi (Bld) [#/Vol]0.06 10*3/uL [facility] CenterBasophils/100 WBC (Bld)1 %0 - 2 %[facility] CenterEosinophils (Bld) [#/Vol]0.29 10*3/uLChesapeake Regional Medical Center Eosinophils/100 WBC (Bld)5 %High0 - 4 %[facility] Medical CenterErythrocyte distribution width (RBC) [Ratio]20.2 %High11.5 - 14.9 %[facility] Hematocrit (Bld) [Volume fraction]33.1 %Low41.0 - 53.0 %[facility] Hemoglobin (Bld) [Mass/Vol]9.9 g/dLLow13.5 - 17.5 g/dLBon [facility] Immature granulocytes (Bld) [#/Vol]0 10*3/uLBon Providence HospitalImmature granulocytes/100 WBC (Bld)0 %0Bon [facility] HospitalInterpretation and review of laboratory resultsAbnormalBon Providence HospitalLymphocytes/100 WBC (Bld)22 %Low24 - 44 %[facility] Medical CenterLymphocytes/100 WBC (Bld)1.28 %[facility] HealthH (RBC) [Entitic mass]24.3 pgLow26.0 - 34.0 pgBon Wilson HealthHC (RBC) [Mass/Vol]29.9 g/dLLow31.0 - 37.0 g/dLBon [facility] MCV (RBC) [Entitic vol]81.3 fL80.0 - 100.0 fLChesapeake Regional Medical Center Monocytes/100 WBC (Bld)13 %High3 - 12 %[facility] CenterMonocytes/100 WBC (Bld)0.75 %[facility] Medical CenterMorphology Ian (Bld) [Interp]ANISOCYTOSIS PRESENTChesapeake Regional Medical CenterMorphology Ian (Bld) [Interp]1+ ECHINOCYTESChesapeake Regional Medical CenterMorphology Ian (Bld) [Interp]1+ ELLIPTOCYTESChesapeake Regional Medical CenterNeutrophils/100 WBC (Bld)59 %36 - 66 %[facility] Nucleated RBC/100 WBC (Bld) [Ratio]0 %0 per 100 WBCChesapeake Regional Medical Center Platelet mean volume (Bld) [Entitic vol]9.6 fL8.0 - 13.5 fLChesapeake Regional Medical CenterPlatelets (Bld) [#/Vol]165 10*3/uLBon Providence HospitalRBC (Bld) [#/Vol]4.07 10*6/uLLow4.21 - 5.77 m/uLChesapeake Regional Medical CenterSegmented neutrophils/100 WBC (Bld)3.42 %[facility] Medical CenterWBC other (Bld) [#/Vol] 5.8Bon [facility] CenterCBC with Diffon 10-03-2024 Abs. Basophil0.06 k/uLNormal0.00-0.20[facility] HospitalComhills & dales general hospital on above: Performed By: #### MAGY JAMES, PT #### [facility] [address] [place] [address] Air Analysis Technician: Milo Engle DOAbs.Imm.Granulocyte0.00 k/uLNormal0.00-0.30 [facility] HospitalComhills & dales general hospital on above:Performed By: #### MAGY JAMES, PT #### [facility] [address] [place] [address] Air Analysis Technician: Milo Engle DOAbs.Neutrophil (Seg)3.42 k/uLNormal1.50-8.10 [facility] HospitalComhills & dales general hospital on above:Performed By: #### MAGY JAMES, PT #### [facility] [address] [place] [address] Air Analysis Technician: Milo Engle DOBasophils/100 WBC (Bld)1 %Normal0-2[facility] HospitalComhills & d[facility] on above:Performed By: #### MAGY JAMES, PT #### [facility] [address] [place] [address] Air Analysis Technician: Milo Engle DOEosinophils (Bld) [#/Vol]0.29 10*3/uLNormal 0.00-0.44[facility] HospitalComhills & dales general hospital on above:Performed By: #### MAGY JAMES, PT #### [facility] [address] [place] [address] Air Analysis Technician: Milo Engle DOEosinophils/100 WBC (Bld)5 %High0-4[facility] HospitalComhills & dales general hospital on above:Performed By: #### MAGY JAMES, PT #### [facility] [address] [place] [address] Air Analysis Technician: Milo Engle DOImmature granulocytes/100 WBC (Bld)0 %Normal0 [facility] on above:Performed By: #### EMILYX, CDP, PT #### [facility] [address] [place] [address] Air Analysis Technician: Milo Engle DOLymphocytes (Bld) [#/Vol]1.28 10*3/uLNormal 1.10-3.70[facility] HospitalComhills & dales general hospital on above:Performed By: #### BMPX, CDP, PT #### [facility] [place] [address] Air Analysis Technician: Milo Engle DOLymphocytes/100 WBC (Bld)22 %Npx78-79ZrmyqOhioHealth Hardin Memorial Hospital on above:Performed By: #### ERIKA CDP, PT #### [facility] [address] [place] [address] Air Analysis Technician: Milo Engle DOMonocytes (Bld) [#/Vol]0.75 10*3/uLNormal 0.10-1.20[facility] on above:Performed By: #### MAGY JAMES, PT #### [facility] [address] [place] [address] Air Analysis Technician: Milo Engle DOMonocytes/100 WBC (Bld)13 %High3-12[facility] on above:Performed By: #### BMPX, CDP, PT #### [facility] [address] [place] [address] Air Analysis Technician: Milo Engle DOMorphology Ian (Bld) [Interp]ANISOCYTOSIS PRESENTNormalOhioHealth Hardin Memorial Hospital on above:Result Comment: 1+ ECHINOCYTES 1+ ELLIPTOCYTESPerformed By: #### BMPX, CDP, PT #### [facility] [address] [facility] [place] [address] Air Analysis Technician: Milo Engle DONeutrophil (Seg)59 %Vracbw42-00WnsnmLicking Memorial HospitalComment on above:Performed By: #### MAGY JAMES, PT #### [facility] [place] [address] Air Analysis Technician: Milo Engle DOErythrocyte distribution width (RBC) [Ratio] 20.2 %High11.5-14.9L[facility] HospitalComment on above:Performed By: #### MAGY JAMES, PT #### [facility] [address] [place] [address] Air Analysis Technician: Milo Engle DOHematocrit (Bld) [Volume fraction]33.1 %Low 41.0-53.0[facility] HospitalComhills & dales general hospital on above:Performed By: #### MAGY JAMES, PT #### [facility] [address] [place] [address] Air Analysis Technician: Milo Engle DOHemoglobin (Bld) [Mass/Vol]9.9 g/dLLow 13.5-17.5[facility] HospitalComhills & dales [facility] hospital on above:Performed By: #### MAGY JAMES, PT #### [facility] [address] [place] [address]. [place] [address] Air Analysis Technician: Milo Engle DOMCH (RBC) [Entitic mass]24.3 pgLow26.0-34.0 [facility] on above:Performed By: #### MAGY JAMES, PT #### [facility] [address] [place] [address] Air Analysis Technician: Milo Engle DOMCHC (RBC) [Mass/Vol]29.9 g/dLLow31.0-37.0 [facility] on above:Performed By: #### MAGY JAMES, PT #### [facility] [address] [facility] [place] [address] Air Analysis Technician: Milo Engle DOMCV (RBC) [Entitic vol]81.3 fLNormal 80.0-100.0[facility] on above:Performed By: #### MAGY JAMES, PT #### [facility] [address] [facility] [place] [address] Air Analysis Technician: Milo Engle DONRBC Automated0.0 per 100 ZICUmbyeq3BvbuzOhioHealth Hardin Memorial Hospital on above:Performed By: #### MAGY JAMES, PT #### [facility] [address] [place] [address]. [place] [address] Air Analysis Technician: Milo Engle DOPlatelet mean volume (Bld) [Entitic vol]9.6 fLNormal8.0-13.5[facility] on above:Performed By: #### MAGY JAMES, PT #### [facility] [place] [address] Air Analysis Technician: Milo Engle DOPlatelets (Bld) [#/Vol]165 10*3/uLNormal 150-450[facility] on above:Performed By: #### MAGY JAMES, PT #### [facility] [place] [address] Air Analysis Technician: Milo Engle DORBC (Bld) [#/Vol]4.07 10*6/uLLow4.21-5.77 [facility] on above:Performed By: #### MAGY JAMES, PT #### [facility] [place] [address] Air Analysis Technician: Milo Engle DOWBC (Bld) [#/Vol]5.8 10*3/uLNormal3.5-11.0 [facility] on above:Performed By: #### MAGY JAMES, PT #### [facility] [address] [place] [address] Air Analysis Technician: Milo Engle DOFerritinon 66-47-0707Poaeqpgw [Mass/Vol]54 ng/mLNormalBon [facility] on above:No reference range established for this age/gender.Result Comment: No reference range established for this age/gender.Performed By: #### MAGY JAMES, PT #### [facility] [address] [place] [address] Air Analysis Technician: Milo Engle DOHaptoglobinon 30-44-5974Oiyilbhmard [Mass/Vol]244 mg/uXLfzo66 - 200 mg/dLBon Providence HospitalHaptoglobin244 mg/oEEgpk10-796BmldhLicking Memorial HospitalComhills & dales general hospital on above:Performed By: #### MAGY JAMES, PT #### [facility] [address] [place] [address] Air Analysis Technician: Milo Engle Austin Binding Cap.on 92-98-6998Vnun [Mass/Vol] 18 ug/qNWfm44-966Gxu [facility] on above:Performed By: #### MAGY JAMES, PT #### [facility] [address] [place] [address] Air Analysis Technician: Milo Engle DO% Fe Saturation8 %Scx75-32ZyxrzOhioHealth Hardin Memorial Hospital on above:Performed By: #### MAGY JAMES, PT #### [facility] [address] [place] [address] Air Analysis Technician: Fanelly, Milo, DOTotal Fe Binding Bjp416 ug/dARkl648-389WgrqyLicking Memorial HospitalComment on above:Performed By: #### MAGY JAMES, PT #### [facility] [address] [facility] [place] [address] Air Analysis Technician: Milo Engle DOUnbound Fe Bind Txz940 ug/jJXghkko783-477 [facility] HospitalComment on above:Performed By: #### MAGY JAMES, PT #### [facility] [address] [facility] [place] [address] Air Analysis Technician: Milo Engle DOIron and TIBCon 42-01-8225Surp binding capacity [Mass/Vol]235 ug/gLChr373 - 450 ug/dLBon [facility] saturation [Mass fraction]8 %Low20 - 55 %[facility] HospitalBC217 ug/dL 112 - 347 ug/dLBon Providence HospitalLEGIONELLA ANTIGEN, URINEon 10-03-2024L. pneumophila 1 Ag IA.rapid Ql (U)NegativeNEGATIVEChesapeake Regional Medical CenterComhills & dales general hospital on above:L. pneumophila serogroup 1 antigen not detected. A negative result does not exclude infection with Leginella pnemophila serogroup 1 nor does it rule out other microbial-caused respiratory infections of disease caused by other serogroups of Legionella pneumophila. [facility] Medical CenterLactate Dehydrogenaseon 86-23-7517Yaermttqgfrjcs and review of laboratory resultsAbnormalBon [facility] [Catalytic activity/Vol]132 U/YVwd212 - 225 U/LBon [facility] [Catalytic activity/Vol]132 U/WHsq367-427MofynLicking Memorial Hospital Comment on above:Performed By: #### MAGY JAMES, PT #### [facility] [address] [facility] [place] [address] Air Analysis Technician: Milo Engle DOLegionella Ag, Uron 99-01-4337Odhaqcmcft Ag, UrNegativeNormalNEGLicking Memorial HospitalComment on above:Result Comment: L. pneumophila serogroup 1 antigen not detected. A negative result does not exclude infection with Leginella pnemophila serogroup 1 nor does it rule out other microbial-caused respiratory infections of disease caused by other serogroups of Legionella pneumophila.Performed By: #### OBS #### [facility] [address] [facility] [place] [address] Air Analysis Technician: Milo Engle DOMRSA DNA Probe, Nasalon 43-26-4062Uobgpowd Description.NASAL SWABBon [facility] CenterMRSA, DNA, Nasalon 11-89-7585DFBK, DNA, NasalNegativeNoInova Mount Vernon Hospital Comment on above:NEGATIVE: MRSA DNA not detected [...] MRSA infections. Performed By: #### OBS #### [facility] [address] [facility] [place] [address] Air Analysis Technician: Milo Engle DOMagnesiumandrzej 02-63-8275Xywiudqpo [Mass/Vol]2.2 mg/dL1.6 - 2.4 mg/dLBon [facility] Surgery CenterMagnesium [Mass/Vol]2.2 mg/dLNormal1.6-2.4L[facility] Memorial HospitalComhills & dales general hospital on above: Performed By: #### BMPX, CDP, PT #### [facility] [address] [facility] [place] [address] Air Analysis Technician: Milo Engel DONo Panel Informationon 10-03-2024 Interpretation and review of laboratory resultsAbBowdle HospitalPTon 26-96-1322QPT Coag (PPP) [Relative time]1.7 {INR} NormalOhioHealth Hardin Memorial Hospital on above:Result Comment: Therapeutic Range: Moderate Anticoagulant Intensity: INR = 2.0-3.0 High Anticoagulant Intensity: INR = 2.5-3.5Performed By: #### BMPX, CDP, PT #### [facility] [address] [facility] [place] [address] Air Analysis Technician: Milo Engle DOPT Coag (PPP) [Time]22.0 sHigh11.8-14.6Mgenesis hospitaly [facility] on above:Performed By: #### BMPX, CDP, PT #### [facility] [address] [place] [address] Air Analysis Technician: Milo Engle DOProtime-INRandrzej 97-86-6706GYY Coag (PPP) [Relative time]1.7 {INR}[facility] on above: Therapeutic Range: Moderate Anticoagulant Intensity: INR = 2.0-3.0 High Anticoagulant Intensity: INR = 2.5-3.5 Interpretation and review of laboratory resultsAbInova Loudoun Hospital PT Coag (PPP) [Time]22.0 sHighBon [facility] Retic Counton 12-96-0369Tugridnc Retic0.038 M/uLNormal0.030-0.080[facility] on above:Performed By: #### BMPX, CDP, PT #### [facility] [address] [place] [address] Air Analysis Technician: Milo Engle DOIRF11.9 %Normal2.7-18.3Mgenesis hospitaly [facility] on above:Performed By: #### BMPX, CDP, PT #### [facility] [address] [facility] [place] [address] Air Analysis Technician: Milo Engle DORetic Count0.9 %Normal0.5-2.5L[facility] Memorial HospitalComment on above:Performed By: #### MAGY JAMES, PT #### [facility] [address] [place] [address] Air Analysis Technician: Milo Engle DORetic Ksuenvdwej25.4 pgLow28.2-35.7L[facility] Memorial HospitalComment on above:Performed By: #### MAGY JAMES, PT #### [facility] [address] [facility] [place] [address] Air Analysis Technician: Milo Engle DOReticulocyteson 33-73-8889Lzfbtusy reticulocytes/Total reticulocytes (Bld)11.9 %2.7 - 18.3 %[facility] CenterInterpretation and review of laboratory resultsAbnormalChesapeake Regional Medical CenterRetic Yjimirieep67.4 pgLow28.2 - 35.7 pgChesapeake Regional Medical Center Reticulocytes (Bld) [#/Vol]0.038 10*3/uLChesapeake Regional Medical Center Reticulocytes/100 RBC (Bld)0.9 %0.5 - 2.5 %[facility]U Medical CenterVitamin B12 & Folateon 74-87-9837Ifiqwimgd (Vitamin B12) [Mass/Vol] 377 pg/mL232 - 1245 pg/mLChesapeake Regional Medical CenterFolate [Mass/Vol]28.5 ng/mLHigh 4.8 - 24.2 ng/mLChesapeake Regional Medical CenterInterpretation and review of laboratory resultsAbnormalVCU Medical CenterBasic Metabolic Panelon 28-20-1119Bfefr gap [Moles/Vol]11 mmol/L9 - 16 mmol/LBon Providence HospitalCalcium [Mass/Vol]8.8 mg/dL8.6 - 10.4 mg/dLBon [facility] Chloride [Moles/Vol]106 mmol/L98 - 107 mmol/LBon Providence HospitalCO2 [Moles/Vol]24 mmol/L20 - 31 mmol/LBon Providence HospitalCreatinine [Mass/Vol] 1.9 mg/dLHigh0.7 - 1.2 mg/dLBon Providence HospitalEst, Glom Filt Rppe72Czp- PINFBon Providence HospitalComment on above: These results are not [...] that affects renal tubular secretion. Glucose [Mass/Vol]105 mg/vCMecr08 - 99 mg/dLBon [facility] Interpretation and review of laboratory resultsAbnormalBon [facility] Potassium [Moles/Vol]3.8 mmol/L3.7 - 5.3 mmol/LBon Providence HospitalSodium [Moles/Vol]141 mmol/L136 - 145 mmol/LBon Providence HospitalUrea nitrogen [Mass/Vol]22 mg/dL8 - 23 mg/dLBon Providence HospitalBasic Metabolic Profon 71-20-3486Ocviv gap [Moles/Vol]11 mmol/LNormal9-16[facility] Hospitalcy [facility] Comment on above:Performed By: #### CDP, BMP, PT, TSHX #### [facility] [address] [place] [address]. [place] [address] Air Analysis Technician: Milo Engle DOCalcium [Mass/Vol]8.8 mg/dLNormal8.6-10.4 [facility] HospitalComment on above:Performed By: #### MAGY, BMP, PT, TSHX #### [facility] [address] [facility] [place] [address] Air Analysis Technician: Milo Engle DOChloride [Moles/Vol]106 mmol/YPagxvp25-518 [facility] HospitalComment on above:Performed By: #### CDP, BMP, PT, TSHX #### [facility] [address] [place] [address]. [place] [address] Air Analysis Technician: Milo Engle DOCO2 [Moles/Vol]24 mmol/BFjqdvm10-29WowumLicking Memorial HospitalComment on above:Performed By: #### MAGY, BMP, PT, TSHX #### [facility] [address] [place] [address]. [place] [address] Air Analysis Technician: Milo Engle DOCreatinine [Mass/Vol]1.9 mg/dLHigh0.7-1.2 [facility] Memorial HospitalComhills & dales general hospital on above:Performed By: #### EMILY BHATTI, PT, TSHX #### [facility] [address] [place] [address] Air Analysis Technician: Milo Engle DOGFR/1.73 sq M.predicted among non-blacks MDRD (S/P/Bld) [Vol rate/Area]35 mL/min/{1.73_m2}Low>60[facility] Comment on above:Result Comment: These results are [...] By: #### MAGY, BMP, PT, TSHX #### [facility] [address] [place] [address]. [place] [address] Air Analysis Technician: Milo Engle DOGlucose [Mass/Vol]105 mg/iMVvqr30-27McovdWyandot Memorial HospitalComhills & dales general hospital on above:Performed By: #### MAGY, BMP, PT, TSHX #### [facility] [place] [address] Air Analysis Technician: Milo Engle DOPotassium [Moles/Vol]3.8 mmol/LNormal3.7-5.3 [facility] HospitalComhills & dales general hospital on above:Performed By: #### CDP, BMP, PT, TSHX #### [facility] [address] [facility] [place] [address] Air Analysis Technician: Milo Engle DOSodium [Moles/Vol]141 mmol/AOcmxpc720-284 [facility] Memorial HospitalComhills & dales general hospital on above:Performed By: #### CDP, BMP, PT, TSHX #### [facility] [address] [facility] [place] [address] Air Analysis Technician: Milo Engle DOUrea nitrogen [Mass/Vol]22 mg/dLNormal8-23 [facility] HospitalComhills & dales general hospital on above:Performed By: #### CDP, BMP, PT, TSHX #### [facility] [address] [facility] [place] [address] Air Analysis Technician: Milo Engle, DOCBC with Auto Differentialon 10-02-2024 [...] 10*3/uLBon Secours Mercy HealthImmature granulocytes/100 WBC (Bld)1 %Dtjj0[facility] Companyy Health Interpretation and review of laboratory resultsAbnormalBon [facility] Lymphocytes/100 WBC (Bld)13 %Low24 - 44 %[facility] Medical CenterLymphocytes/100 WBC (Bld)0.95 %LowBon SecProMedica Defiance Regional HospitalH (RBC) [Entitic mass]24.3 pgLow 26.0 - 34.0 pgBon Wilson HealthHC (RBC) [Mass/Vol]28.4 g/dLLow31.0 - 37.0 g/dLBon SecProMedica Defiance Regional HospitalV (RBC) [Entitic vol]85.7 fL80.0 - 100.0 fL Bon Providence HospitalMonocytes/100 WBC (Bld)14 %High3 - 12 %[facility] CenterMonocytes/100 WBC (Bld)1.02 %Bon Providence HospitalMorphology Ian (Bld) [Interp]ANISOCYTOSIS PRESENTBon Providence HospitalMorphology Ian (Bld) [Interp]1+ ELLIPTOCYTESBon Providence HospitalMorphology Ian (Bld) [Interp]1+ ECHINOCYTESBon Providence HospitalNeutrophils/100 WBC (Bld)71 %High36 - 66 %[facility] CenterNucleated RBC/100 WBC (Bld) [Ratio]0 %0 per 100 WBCBon Providence HospitalPlatelet mean volume (Bld) [Entitic vol]10 fL8.0 - 13.5 fL [facility] Medical CenterPlatelets (Bld) [#/Vol]245 10*3/uLBon Providence HospitalRBC (Bld) [#/Vol]4.53 10*6/uL4.21 - 5.77 m/uLChesapeake Regional Medical Center Segmented neutrophils/100 WBC (Bld)5.19 %[facility] Medical CenterWBC other (Bld) [#/Vol]7.3Bon SecProHealth Memorial Hospital OconomowocCBC with Diffon 46-89-6257Ylv. Basophil0.00 k/uLNormal0.00-0.20Mer[facility] Memorial HospitalComment on above:Performed By: #### CDP, BMP, PT, TSHX #### [facility] [address] [place] [address] Air Analysis Technician: Milo Engle DOAbs.Imm.Granulocyte0.07 k/uLNormal0.00-0.30 [facility] on above:Performed By: #### MAGY, BMP, PT, TSHX #### [facility] [address] [place] [address] Air Analysis Technician: Milo Engle DOAbs.Neutrophil (Seg)5.19 k/uLNormal1.50-8.10 [facility] HospitalComhills & dales general hospital on above:Performed By: #### MAGY, BMP, PT, TSHX #### [facility] [address] [place] [address] Air Analysis Technician: Milo Engle DOBasophils/100 WBC (Bld)0 %Normal0-2[facility] Memorial HospitalComhills & dales general hospital on above:Performed By: #### MAGY, BMP, PT, TSHX #### [facility] [address] [place] [address] Air Analysis Technician: Milo Engle DOEosinophils (Bld) [#/Vol]0.07 10*3/uLNormal 0.00-0.44[facility] on above:Performed By: #### MAGY, BMP, PT, TSHX #### [facility] [address] [place] [address] Air Analysis Technician: Milo Engle DOEosinophils/100 WBC (Bld)1 %Normal0-4MerFirelands Regional Medical CenterComhills & dales general hospital on above:Performed By: #### CDP, BMP, PT, TSHX #### [facility] [address] [place] [address] Air Analysis Technician: Milo Engle DOImmature granulocytes/100 WBC (Bld)1 %High0 [facility] HospitalComhills & dales general hospital on above:Performed By: #### CDP, BMP, PT, TSHX #### [facility] [address] [place] [address] Air Analysis Technician: Milo Engle DOLymphocytes (Bld) [#/Vol]0.95 10*3/uLLow 1.10-3.70[facility] on above:Performed By: #### CDP, BMP, PT, TSHX #### [facility] [address] [place] [address] Air Analysis Technician: Milo Engle DOLymphocytes/100 WBC (Bld)13 %Rem23-51ZnfkwOhioHealth Hardin Memorial Hospital on above:Performed By: #### CDP, BMP, PT, TSHX #### [facility] [address] [place] [address] Air Analysis Technician: Milo Engle DOMonocytes (Bld) [#/Vol]1.02 10*3/uLNormal 0.10-1.20[facility] on above:Performed By: #### CDP, BMP, PT, TSHX #### [facility] [address] [place] [address] Air Analysis Technician: Milo Engle DOMonocytes/100 WBC (Bld)14 %High3-12[facility] on above:Performed By: #### CDP, BMP, PT, TSHX #### [facility] [address] [place] [address] Air Analysis Technician: Milo Engle DOMorphology Ian (Bld) [Interp]ANISOCYTOSIS PRESENTNormalOhioHealth Hardin Memorial Hospital on above:Result Comment: 1+ ELLIPTOCYTES 1+ ECHINOCYTESPerformed By: #### CDP, BMP, PT, TSHX #### [facility] [address] [place] [address] Air Analysis Technician: Milo Engle DONeutrophil (Seg)71 %Qpfp50-60RhlpgLicking Memorial HospitalComhills & dales general hospital on above:Performed By: #### CDP, BMP, PT, TSHX #### [facility] [address] [place] [address] Air Analysis Technician: Milo Engle DOErythrocyte distribution width (RBC) [Ratio] 20.6 %High11.5-14.9L[facility] Memorial HospitalComhills & dales general hospital on above:Performed By: #### CDP, BMP, PT, TSHX #### [facility] [address] [place] [address] Air Analysis Technician: Milo Engle DOHematocrit (Bld) [Volume fraction]38.8 %Low 41.0-53.0[facility] on above:Performed By: #### CDP, BMP, PT, TSHX #### [facility] [address] [place] [address] Air Analysis Technician: Milo Engle DOHemoglobin (Bld) [Mass/Vol]11.0 g/dLLow 13.5-17.5L[facility] Memorial HospitalComhills & dales general hospital on above:Performed By: #### MAGY, BMP, PT, TSHX #### [facility] [address] [place] [address] Air Analysis Technician: Milo Engle DOMCH (RBC) [Entitic mass]24.3 pgLow26.0-34.0 [facility] on above:Performed By: #### CDP, BMP, PT, TSHX #### [facility] [address] [place] [address] Air Analysis Technician: Milo Engle DOMCHC (RBC) [Mass/Vol]28.4 g/dLLow31.0-37.0 [facility] HospitalComhills & dales general hospital on above:Performed By: #### CDP, BMP, PT, TSHX #### [facility] [address] [facility] [place] [address] Air Analysis Technician: Milo Engle DOMCV (RBC) [Entitic vol]85.7 fLNormal 80.0-100.0[facility] on above:Performed By: #### CDP, BMP, PT, TSHX #### [facility] [address] [facility] [place] [address] Air Analysis Technician: Milo Engle DONRBC Automated0.0 per 100 HRLTbczyz0LyixtOhioHealth Hardin Memorial Hospital on above:Performed By: #### CDP, BMP, PT, TSHX #### [facility] [address] [place] [address]. [place] [address] Air Analysis Technician: Milo Engle DOPlatelet mean volume (Bld) [Entitic vol]10.0 fLNormal8.0-13.5[facility] on above:Performed By: #### CDP, BMP, PT, TSHX #### [facility] [place] [address] Air Analysis Technician: Milo Engle DOPlatelets (Bld) [#/Vol]245 10*3/uLNormal 150-450[facility] on above:Performed By: #### CDP, BMP, PT, TSHX #### [facility] [place] [address] Air Analysis Technician: Milo Engle DORBC (Bld) [#/Vol]4.53 10*6/uLNormal4.21-5.77 [facility] on above:Performed By: #### CDP, BMP, PT, TSHX #### [facility] [place] [address] Air Analysis Technician: Milo Engle DOWBC (Bld) [#/Vol]7.3 10*3/uLNormal3.5-11.0 [facility] on above:Performed By: #### CDP, BMP, PT, TSHX #### [facility] [address] [place] [address] Air Analysis Technician: Milo Engle DOMRSA, DNA Nasalon 13-31-4241Ekqjzsxx Description.NASAL SWABNormalLicking Memorial HospitalComhills & dales general hospital on above:Performed By: #### OBS #### [facility] [address] [place] [address] Air Analysis Technician: Milo Engle DONo [facility] 22-59-1118Zhy [facility] 60-40-0840FTK Coag (PPP) [Relative time]1.9 {INR}NormalOhioHealth Hardin Memorial Hospital on above:Result Comment: Therapeutic Range: Moderate Anticoagulant Intensity: INR = 2.0-3.0 High Anticoagulant Intensity: INR = 2.5-3.5Performed By: #### CDP, BMP, PT, TSHX #### [facility] [address] [place] [address] Air Analysis Technician: Milo Engle DOPT Coag (PPP) [Time]23.2 sHigh11.8-14.6MUniversity Hospitals St. [facility] on above:Performed By: #### CDP, BMP, PT, TSHX #### [facility] [address] [place] [address] Air Analysis Technician: Milo Engle DOProcalcitoninon 70-03-1168Zufuaqpvdchvp [Mass/Vol]0.08 ng/mL0.00 - 0.09 ng/mLNorton Community Hospital on above: Suspected Sepsis: <0.50 ng/mL Low [...] entered into the Change in Procalcitonin Calculator (www.zdobhl-asv-kfqjmmearr.Qwite) to determine the patient's Mortality Risk Prognosis In healthy neonates, plasma Procalcitonin (PCT) concentrations increase gradually after , reaching peak values at about 24 hours of age then decrease to normal values below 0.5 ng/mL by 48-72 hours of age. [facility] Medical CenterProcalcitonin0.08 ng/mLNormal0.00-0.09L[facility] HospitalComment on above:Result Comment: Suspected Sepsis: <0.50 ng/mL [...] entered into the Change in Procalcitonin Calculator (www.rvuees-agd-vpygqbxufy.Qwite) to determine the patient's Mortality Risk Prognosis In healthy neonates, plasma Procalcitonin (PCT) concentrations increase gradually after , reaching peak values at about 24 hours of age then decrease to normal values below 0.5 ng/mL by 48-72 hours of age.Performed By: #### MYCM #### [email or web address] [facility] [id number] Air Analysis Technician: Loi Oliver MD #### PRCAL #### [facility] [address] [place] [address] Air Analysis Technician: Milo Engle DOProtime-INRon 40-52-9408JCI Coag (PPP) [Relative time]1.9 {INR}[facility] on above: Therapeutic Range: Moderate Anticoagulant Intensity: INR = 2.0-3.0 High Anticoagulant Intensity: INR = 2.5-3.5 Interpretation and review of laboratory resultsAbInova [facility]oudoun Hospital PT Coag (PPP) [Time]23.2 sHighBon [facility] Resp Viral Panelon 71-10-1907FguaeggfvuDhm detectedNormalNOTDEPremier Health Atrium Medical CenterComhills & dales [facility] hospital on above:Performed By: #### RVP #### [facility] [address] [place] [address] Air Analysis Technician: Milo Engle DO [address] [address] Air Analysis Technician: Christophe Correia.parapertussisNot detectedNormalNOTDET [facility] HospitalComhills & dales general hospital on above:Performed By: #### RVP #### [facility] [address] [place] [address] Air Analysis Technician: Milo Engle DO [address] [address] Air Analysis Technician: Diya Correialla pertussisNot detectedNormalNOTDET [facility] HospitalComhills & dales general hospital on above:Performed By: #### RVP #### [facility] [address] [place] [address] Air Analysis Technician: Milo Engle DO [address] [address] Air Analysis Technician: Nasrin Correia.pneumoniaeNot detectedNormalNOTDEPremier Health Atrium Medical CenterComhills & dales general hospital on above:Performed By: #### RVP #### [facility] [address] [place] [address] Air Analysis Technician: Milo Engle Bloxr [address] [place] [address] Air Analysis Technician: Marge Correiaavirus 229ENot detectedNormalNOTOhioHealth Pickerington Methodist HospitalComhills & dales general hospital on above:Performed By: #### RVP #### [facility] [address] [facility] [place] [address] Air Analysis Technician: Milo Engle Bloxr [address] [address] Air Analysis Technician: Marge Correiaavirus TSW8Dfj detectedNormUpper Valley Medical Center on above:Performed By: #### RVP #### [facility] [address] [facility] [place] [address] Air Analysis Technician: Milo Engle Bloxr [address] [place] [address] Air Analysis Technician: Marge Correiaavirus HW99Dao detectedNormalNOTOhioHealth Pickerington Methodist HospitalComhills & dales general hospital on above:Performed By: #### RVP #### [facility] [address] [facility] [place] [address] Air Analysis Technician: Milo Engle Bloxr Formerly [facility] [address] [place] [address] [place] [address] Air Analysis Technician: RAJNI Correiaoronavirus CO44Bzy detectedNormsdNOTOhioHealth Pickerington Methodist HospitalComhills & dales general hospital on above:Performed By: #### RVP #### [facility] [address] [facility] [place] [address] Air Analysis Technician: Milo Engle [employer] [address] [place] [address] [place] [address] Air Analysis Technician: Yoselin Correia MetapneumoDetectedAbnormalNOTDEPremier Health Atrium Medical CenterComhills & dales general hospital on above:Performed By: #### RVP #### [facility] [address] [place] [address] Air Analysis Technician: Milo Engle [address] [address] Air Analysis Technician: Ronni Correia ANot detectedNormalNOTDEPremier Health Atrium Medical CenterComhills & dales general hospital on above:Performed By: #### RVP #### [facility] [address] [place] [address] Air Analysis Technician: Milo Engle [address] [address] Air Analysis Technician: Ronni Correia BNot detectedNormalNOTWayne Hospital on above:Performed By: #### RVP #### [facility] [address] [place] [address] Air Analysis Technician: Milo Engle [address] [address] Air Analysis Technician: Yaritza Correia.pneumoniaeNot detectedNormalNOTDEPremier Health Atrium Medical CenterComhills & dales general hospital on above:Result Comment: Performed by multiplexed nucleic acid assay.Performed By: #### RVP #### [facility] [address] [place] [address] Air Analysis Technician: Milo Engle [address] [address] Air Analysis Technician: Geo Correia 1Not detectedNormalNOTDEHenry County Hospital on above:Performed By: #### RVP #### [facility] [address] [place] [address] Air Analysis Technician: Milo Engle [address] [address] Air Analysis Technician: Geo Correia 2Not detectedNormalNOTDEPremier Health Atrium Medical CenterComhills & dales general hospital on above:Performed By: #### RVP #### [facility] [address] [place] [address] Air Analysis Technician: Milo Engle [address] [address] Air Analysis Technician: Geo Correia 3Not detectedNormalNOTDEHenry County Hospital on above:Performed By: #### RVP #### [facility] [address] [place] [address] Air Analysis Technician: Milo Engle [address] [address] Air Analysis Technician: Geo Correia 4Not detectedNormalNOTOhioHealth Pickerington Methodist HospitalComhills & dales general hospital on above:Performed By: #### RVP #### [facility] [address] [place] [address] Air Analysis Technician: Milo Engle [address] [address] Air Analysis Technician: JUDITH Correiaesp Syncytial VirusNot detectedNormalNOTDET [facility] HospitalComhills & d[facility] on above:Performed By: #### RVP #### [facility] [address] [place] [address] Air Analysis Technician: Milo Engle [address] [address] Air Analysis Technician: Loi Madoff, MDRhino/EnterovirusNot detectedNormalNOTOhioHealth Pickerington Methodist HospitalComment on above:Performed By: #### RVP #### [facility] [address] [place] [address] Air Analysis Technician: Milo Engle [facility] [address] [place] [address] Air Analysis Technician: MATHIEU Correia-CoV-2 (COVID-19) RNA KARI+probe Ql (Unsp spec)Not detectedNormalNOTOhioHealth Pickerington Methodist HospitalComment on above: Performed By: #### RVP #### [facility] [address] [place] [address] Air Analysis Technician: Milo Engle [address] [address] Air Analysis Technician: Mary Correia:.NASOPHARYNGEAL SWABNormalMerFirelands Regional Medical CenterComment on above:Performed By: #### RVP #### [facility] [address] [place] [address] Air Analysis Technician: Milo Engle [address] [address] Air Analysis Technician: Elisa Correia Panel, Molecular, with COVID-19 (Restricted: peds pts or suitable admitted adults)on 73-79-5911Omjhygozxu DNA KARI+non-probe Ql (Nph)Not detectedNot DetectedBon Providence HospitalB. parapertussis VC7196 DNA KARI+non-probe Ql (Nph)Not detectedNot DetectedBon Providence HospitalB. pertussis DNA KARI+probe Ql (Unsp spec)Not detectedNot DetectedBon Providence HospitalC. pneumoniae DNA KARI+non-probe Ql (Nph)Not detectedNot DetectedBon Providence HospitalFLUAV RNA KARI+non-probe Ql (Nph)Not detectedNot DetectedBon Providence HospitalFLUBV RNA KARI+non-probe Ql (Nph)Not detectedNot DetectedBon Providence HospitalHCoV 229E RNA KARI+non-probe Ql (Nph) Not detectedNot DetectedBon SecMcKitrick HospitalHCoV HKU1 RNA KARI+non-probe Ql (Nph)Not detectedNot DetectedBon SecMcKitrick HospitalHCoV NL63 RNA KARI+non-probe Ql (Nph)Not detectedNot DetectedBon [facility] HospitalHCoV OC43 RNA KARI+non- probe Ql (Nph)Not detectedNot DetectedBon Providence HospitalhMPV RNA KARI+non- probe Ql (Nph)DetectedAbnormalNot DetectedBon Providence HospitalInterpretation and review of laboratory resultsAbnormalBon Providence HospitalM. pneumoniae DNA KARI+non-probe Ql (Nph)Not detectedNot DetectedBon [facility] Comment on above:Performed by multiplexed nucleic acid assay.Parainfluenza virus 1 RNA KARI+non-probe Ql (Nph)Not detectedNot DetectedBon [facility] Parainfluenza virus 2 RNA KARI+non-probe Ql (Nph)Not detectedNot DetectedBon Providence HospitalParainfluenza virus 3 RNA KARI+non-probe Ql (Nph)Not detected Not DetectedBon SecMcKitrick HospitalParainfluenza virus 4 RNA KARI+non-probe Ql (Nph)Not detectedNot DetectedBon [facility] HospitalRhinovirus+Enterovirus RNA KARI+non-probe Ql (Nph)Not detectedNot DetectedBon Providence HospitalRSV RNA KARI+non-probe Ql (Nph)Not detectedNot DetectedBon Providence HospitalSARS-CoV-2 (COVID-19) RNA KARI+non-probe Ql (Nph)Not detectedNot DetectedBon Providence HospitalSpecimen Description.NASOPHARYNGEAL SWABBon [facility] reflex to 62-42-8158VIA Qn1.29 m[IU]/LBon [facility] w/reflex to 41-04-2465Phnfqsy Stim. Horm.1.29 uIU/mLNormal 0.27-4.20Licking Memorial HospitalComment on above:Performed By: #### CDP, BMP, PT, TSHX #### [facility] [address] [place] [address] Air Analysis Technician: Milo Engle DOUrinalysis w/ Microon 14-25-8250CetilielCCE AbnormalCincinnati VA Medical CenterComhills & dales general hospital on above:Performed By: #### OBS #### [facility] [address] [facility] [place] [address] Air Analysis Technician: Milo Engle DOBilirubin, SemiQt,UrNegativeNormalNEGMerFirelands Regional Medical CenterComhills & dales general hospital on above:Performed By: #### OBS #### [facility] [address] [facility] [place] [address] Air Analysis Technician: Milo Engle DOBlood, UrineTRACEAbnormalNEGMerFirelands Regional Medical CenterComhills & dales general hospital on above:Performed By: #### OBS #### [facility] [address] [place] [address] Air Analysis Technician: Milo Engle DOCasts6 TO 9AbnormalNONEMeSalem Regional Medical CenterComhills & dales general hospital on above:Performed By: #### OBS #### [facility] [address] [place] [address]. [place] [address] Air Analysis Technician: Milo Engle DOClarity (U)ClearNormalCLEARMerFirelands Regional Medical CenterComhills & dales general hospital on above:Performed By: #### OBS #### [facility] [place] [address] Air Analysis Technician: Milo Engle DOColor (U)YellowNormalYELMerFirelands Regional Medical CenterComhills & dales general hospital on above:Performed By: #### OBS #### [facility] [address] [place] [address] Air Analysis Technician: Milo Engle DOEpithelial cells LM Ql (Urine sed)0 TO 2 NormalMerFirelands Regional Medical CenterComhills & dales general hospital on above:Performed By: #### OBS #### [facility] [place] [address] Air Analysis Technician: Milo Engle DOGlucose Ql (U)NegativeNormalNEGMerFirelands Regional Medical CenterComhills & dales general hospital on above:Performed By: #### OBS #### [facility] [address] [place] [address] Air Analysis Technician: Milo Engle DOKetones Ql (U)NegativeNormalNEGMerFirelands Regional Medical CenterComhills & dales general hospital on above:Performed By: #### OBS #### [facility] [address] [place] [address] Air Analysis Technician: Milo Engle DOLeukocyte esterase Test strip Ql (U)MOD AbnormalNEGLicking Memorial HospitalComhills & dales general hospital on above:Performed By: #### OBS #### [address] [address] Air Analysis Technician: Milo Engle DONitrite,UrPositiveAbnormalNEGMerFirelands Regional Medical CenterComhills & dales general hospital on above:Performed By: #### OBS #### [facility] [address] [place] [address] Air Analysis Technician: Milo Engle DOPH,Ur6.9Dpflzz8.0-8.0MerFirelands Regional Medical CenterComhills & dales general hospital on above:Performed By: #### OBS #### [facility] [address] [place] [address] Air Analysis Technician: Milo Engle DOProtein Ql (U)1+ mg/dLAbnormalNEGMerFirelands Regional Medical CenterComhills & dales general hospital on above:Performed By: #### OBS #### [facility] [address] [place] [address] Air Analysis Technician: Milo Engle DOSpec. [place],Ur1.954Nrpmun8.000-1.030MerFirelands Regional Medical CenterComhills & dales general hospital on above:Performed By: #### OBS #### [facility] [address] [facility] [place] [address] Air Analysis Technician: Milo Engle DOUrine RBC's6 TO 9JxckixrhW51UngfjLicking Memorial HospitalComhills & dales general hospital on above:Performed By: #### OBS #### [facility] [address] [facility] [place] [address] Air Analysis Technician: Milo Engle DOUrine WBC's51 TO 349BjoekgahU95NpnuvLicking Memorial HospitalComhills & dales general hospital on above:Performed By: #### OBS #### [facility] [address] [place] [address] Air Analysis Technician: Milo nEgle DOUrobilinogen,UrNormalNormal0.0-1.0L[facility] Memorial HospitalComhills & dales general hospital on above:Performed By: #### OBS #### [facility] [address] [place] [address] Air Analysis Technician: Milo Engle DOUrinalysis with Microscopicon 10-02-2024 Bacteria LM Ql (Urine sed)FEWAbnormalNoneBon Secours Mercy HealthBilirubin Ql (U)NegativeNEGATIVEBon Secours Mercy HealthCasts LM.LPF (Urine sed) [#/Area]6 TO 9AbnormalNone /LPFBon Secours Mercy HealthClarity (U)ClearClearBon Secours [facility] Hospital Companyy HealthColor (U)YellowYellowBon Secours Mercy HealthEpithelial cells LM.HPF (Urine sed) [#/Area]0 TO 2/HPFBon Secours Mercy HealthGlucose Test strip (U) [Mass/Vol]NegativeNEGATIVE mg/dLBon Secours Mercy HealthHemoglobin Auto test strip Ql (U)TRACEAbnormalNEGATIVEBon Secours Mercy HealthInterpretation and review of laboratory resultsAbnormalBon Secours Mercy HealthKetones (U) [Mass/Vol]NegativeNEGATIVE mg/dLBon Secours Mercy HealthLeukocyte esterase Test strip Ql (U)MODAbnormalNEGATIVEBon Secours Mercy HealthNitrite Ql (U)Positive AbnormalNEGATIVEBon Providence HospitalpH (U)6 [pH]5.0 - 8.0C[facility]apeake Regional Medical CenterProtein (U) [Mass/Vol]1+AbnormalNEGATIVE mg/dLBon Providence HospitalRBC LM.HPF (Urine sed) [#/Area]6 TO 3Ersnmkeo8 TO 2 /HPFChesapeake Regional Medical Center Specific gravity (U) [Rel density]1.0171.000 - 1.030[facility] Urobilinogen Qn (U)Normal0.0 - 1.0 EU/dLBon Providence HospitalWBC LM.HPF (Urine sed) [#/Area]51 TO 758Futnymyf7 TO 5 /HPFVCU Medical CenterUrine Cultureon 88-20-3854Etlsxcga identified Cx Nom (U) ORGANISM: Klebsiella oxytoca (O:KLEOXY) [place] Count >100,000 ORGANISM: Enterobacter cloacae complex (O:ENTCLOCPLX) [place] Count >100,000 Aerobic RITESH Charge (NMIC56) SUSCEPTIBILITY [...] RESISTANT TO ALL B-LACTAM DRUGS. PERFORMED BY: [place] [address] PATHOLOGIST FLEET SALESPERSON ED CRUZ M.D.[facility] Physician GroupComment on above: Performed By: #### ADDONUAPLUS, CUU #### [place] [address] USAUrine cultureOrdered By: Robe Hansen on 54-48-2415Movhvwga identified Cx Nom (U)[facility] HospitalBacteria identified Cx Nom (U)[facility]rville HospitalUS aortaon 06-28-8324RJ aortaProvidence Hospital [facility] [address] [place] [address] Ultrasound Report Signed Patient: Alex Anderson MR#: [id number] [birth year] : 1945 Acct:[id number] Age/Sex: 78 / M ADM Date: 09/23/24 Loc: [facility] Room: Type: [facility] Attending Dr: Margarito Valentine MD Ordering [...] ANEURYSM SAC. Impression dictated by: Margarito Valentine MD,FACS,FSVS 09/30/2024 8:31 AM Dictation Location: [place] [address] Tech: Juani Steward Transcribed By: LIONEL 09/30/24830 Dictated By: Margarito Valentine MD 09/30/24829 Signed By: 09/30/24 0831[facility] Physician GroupUS arterial duplex LE [facility] 99-08-5183VE arterial duplex LE [facility] [address] [place] [address] Ultrasound Report Signed Patient: Alex Anderson MR#: [id number] [birth year] : 1945 Acct:[id number] Age/Sex: 78 / M ADM Date: 09/23/24 Loc: [facility] Room: Type: [facility] Attending Dr: Margarito Valentine MD Ordering [...] Valentine MD,FACS,FSVS 09/30/2024 8:30 AM Dictation Location: [place] [address] Tech: Juani Steward Transcribed By: LIONEL 09/30/24829 Dictated By: Margarito Valentine MD 09/30/24828 Signed By: 09/30/24829[facility] Physician GroupVirtua Marlton Cultureon 09-28-2024 Bacteria identified Cx Nom (U)ORGANISM: Enterobacter cloacae complex (O:ENTCLOCPLX) [place] Count >100,000 ORGANISM: Enterobacter cloacae complex (O:ENTCLOCPLX) [place] Count >100,000 Aerobic RITESH Charge (NMIC56) SUSCEPTIBILITY [...] RESISTANT TO ALL B-LACTAM DRUGS. PERFORMED BY: [place] [address] PATHOLOGIST FLEET SALESPERSON ED CRUZ M.D.NormalEd Fraser Memorial Hospital Physician GroupComment on above: Performed By: #### MAISHA LOZANOU #### [place] [address] USAUrine cultureOrdered By: Talya Bo on 86-96-6240Rlqydvcn identified Cx Nom (U)AbnormalParkview Health Montpelier HospitalUrinalysis macro (dipstick) panel (U)on 49-12-0633Xmqyjymlb, UANegativeNegative - 4(70) +++ mg/dL NOM[facility] HealthcareBlood, [...] - 12 mg/dLNOMS HealthcareNOMS HealthcareECG 12 Leadon 65-31-6037FBW revealed normal sinus rhythm, right axis deviation, IVCD, septal myocardial infarction of undetermined age, diffuse repolarization abnormalities, abnormal ECGCPACSPike Community Hospital Work Phone: ambulatory Visit Summaryon 53-06-2258Vjqpkwsmcj Visit SummaryAmbulatory Visit Summary ALEX ANDERSON :1945 [...] CASILLAS, Katia Macias Where: [facility] [place] [address]- Medications What How Much When Instructions Unchanged [...] you for choosing us for your care. [facility] Health SystemITPon 08-79-7800PqmElberon, [place] [address] Cardiac Rehab Report Signed Patient: ALEX ANDERSON MR#: [id number] : 1945 Acct:[id number] Age/Sex: 78 / M ADM Date: 08/23/24 Loc: CR Attending Dr: TEO AL Ordering Physician: Martita Garnica D.O. Date of Service: 08/23/24 Procedure(s): ITP Accession Number(s): [id number] cc: [facility] Test Date: 2024-08-23 Pat Name: ALEX ANDERSON Department: Room: - Gender: Male Political Advisor: : 1945 Requested By: MARTITA GARNICA Order Number: [id number] Silverio MD: MARTITA AGRNICA Interpretive Statements Session Date: Electronically Signed On 09-05-2024 19:58:42 EDT by MARTITA GARNICA Dictated By: Martita Garnica D.O. Signed By: 09/05/24195809/05/241958 DD/ 1441 TD/TT: Advanced Solutions Architect:ALEMadiologIker blackburn, - 09/05/2024 [place] [address] Cardiac Rehab Report Signed Patient: ALEX ANDERSON MR#: [id number] : 1945 Acct:[id number] Age/Sex: 78 / M ADM Date: 08/23/24 Loc: CR Attending Dr: TEO AL Ordering Physician: Martita Garnica D.O. Date of Service: 08/23/24 Procedure(s): ITP Accession Number(s): [id number] cc: [facility] Test Date: 2024-08-23 Pat Name: ALEX ANDERSON Department: Room: - Gender: Male Political Advisor: : 1945 Requested By: MARTITA GARNICA Order Number: [id number] Silverio CASILLAS: MARTITA GARNICA Interpretive Statements Session Date: Electronically Signed On 09-05-2024 19:58:42 EDT by MARTITA GARNICA Dictated By: Martita Garnica D.O. Signed By: 09/05/24195809/05/241958 DD/ 1441 TD/TT: Advanced Solutions Architect: MARSHAL MadisonITPOrdered By: Radiologist Radiology on 27-38-6569[facility] Work Phone: aLL LIPID PROFILE (FASTING)on 20-39-8787TMEO HDL RATIO 2NOMS HealthcareComment on above:3.3 - [...] [Mass/Vol]16.2 mg/dLNOMS HealthcareTriglyceride [Mass/Vol]81 mg/dLNINF - 150 mg/dLNOTN HealthcareALL THYROID STIM HORMONEon 45-52-4504FJR Qn0.537 m[IU]/LNOMS HealthcareNo Panel Informationon 71-76-1192SRLOGHRQHQNCE Healthcare ITPon 42-35-8853Ulubpyjvr Study observation (narrative)NOMS HealthcareAmbulatory Visit Summaryon 50-00-7603Zolicudiia Visit SummaryAmbulatory Visit Summary ALEX ANDERSON :1945 [...] With: Fabi Antonio Where: [facility] [address] [place] [address] [place] [address]- Friday 2:00 PM EDT With: Katia SAMUELS MD Where: [facility] [place] [address] [place] [address]- Medications What How Much When Instructions Unchanged [...] you for choosing us for your care. [facility] Health SystemTRANSTHORACIC ECHO (TTE) LIMITED on 86-31-1088GPHXSXTCINUMK ECHO (TTE) LIMITED[address], [address], [place] [address] TRANSTHORACIC ECHOCARDIOGRAM REPORT Patient Name: ALEX ANDERSON Reading Physician: [id number] Ana Castro MD Study Date: 08/06/2024 Ordering Provider: [id number] TEO AL MRN/PID: [id number] Fellow: Nurse: Date of /Age: 7 1945 / 78 years Freight Conductor: Marlyn Castro RDCS, RT(R), RDMS, RVT Gender Assigned at Additional Staff: : Height: 187.96 cm Admit Date: Weight: 92.53 kg Admission Status: Outpatient BSA / BMI: 2.19 m2 / 26.19 Department Location: [facility] kg/m2 [place] Blood Pressure: 98 /64 mmHg Study Type: TRANSTHORACIC ECHO (TTE) LIMITED Diagnosis/ICD: Atherosclerotic heart disease of [place] coronary artery without angina pectoris-I25.10; ST elevation (STEMI) myocardial infarction of unspecified site-I21.3 Indication: STEMI CPT Codes: Echo Limited-56435 Patient History: Smoker: Former. Pertinent History: A-Fib, [...] 0.6 m/s (0.6-0.9m/s) PV Max P.6 mmHg [id number] Ana Castro MD Electronically signed on 08/11/2024 at 5:54:03 PM Final [facility]C Urineon 08-02-2024 Bacteria identified Cx Nom (U)Microbiology PROCEDURE: Urine Culture [R1] SOURCE: U Cath BODY SITE: COLLECTED DATE/TIME: 07/29/2024 14:33 EST RECEIVED DATE/TIME: 07/30/2024 17:43 EST START DATE/TIME: 07/30/2024 17:43 EST FREE TEXT SOURCE: ARLENE CASILLAS, Katia SAMUELS MD, Katia Macias FINAL REPORTS Final Report [...] Locations R1: This test was performed at: [facility], [address] [place] [address], [address]- , , AwfmrhXlkcmhLutheran HospitalComment on above:Performed By: #### [id number] #### [facility] [address] [place] [address]Ltykqdkvoyv distribution width Auto (RBC) [Ratio]on 08-02-2024 Erythrocyte distribution width (RBC) [Ratio]Erythrocyte distribution width [Ratio] by Automated ryemwPvfo24.0-15.0[facility] Estimated glomerular filtration rate (GFR) non- Americanon 08-02-2024 GFR/1.73 sq M.predicted among non-blacks MDRD (S/P/Bld) [Vol rate/Area]Estimated glomerular filtration rate (GFR) non- AmericanLow>=60 mL/min/1.73m 2 [facility]pelier HospitalHematocrit Auto (Bld) [Volume fraction]on 87-49-9982Wwoiuwduho (Bld) [Volume fraction]Hematocrit [Volume Fraction] of Blood by Automated bhmxyYpd40.0-54.0[facility] HospitalHemoglobin [Mass/volume] in Bloodon 16-76-7534Iowcwndsew (Bld) [Mass/Vol]Hemoglobin [Mass/volume] in WywpmXez55.0-18.0[facility]ier HospitalIron binding capacity [Mass/volume] in Serum or Plasmaon 93-56-0812Bgqp binding capacity [Mass/Vol]Iron binding capacity [Mass/volume] in Serum or Ykhpss014.0-450.0 [facility]ier HospitalIron saturation [Mass Fraction] in Serum or Plasmaon 44-59-2985Zmps saturation [Mass fraction]Iron saturation [Mass Fraction] in Serum or PlasmaParkview Health Montpelier HospitalLaboratory - Chemistry and Chemistry - challengeon 71-24-2631Rapcsma [Mass/Vol]3.2 g/dLLow 3.4-5.0[facility]ier HospitalCalcium [Mass/Vol]8.5 mg/dL8.5-10.1 [facility] HospitalChloride [Moles/Vol]107 mmol/T07-958FsmilhpguParkview Health Montpelier HospitalCO2 [Moles/Vol]28.3 mmol/L21.0-32.0[facility]pelier HospitalCobalamin (Vitamin B12) [Mass/Vol]399 pg/hD414-6904VjhhotbjtParkview Health Montpelier HospitalComment on above:Performed at: [employer] [facility] [address] [id number] Director: Morgan Carpenter PhD, Phone: [phone] [Mass/Vol]2.07 mg/dLHigh0.70-1.30[facility] Montpelier HospitalFerritin [Mass/Vol]35.0 ng/mL26.0-388.0[facility] GFR/1.73 sq M.predicted MDRD (S/P/Bld) [Vol rate/Area]38 mL/min/{1.73_m2}Low>=60 mL/min/1.73m 2FProMedica Toledo HospitalGlucose [Mass/Vol]106 mg/oQ41-259 [facility]ier HospitalIron [Mass/Vol]22.0 ug/dLLow65.0-175.0[facility]ier HospitalMagnesium [Mass/Vol]2.1 mg/dL1.8-2.4FProMedica Toledo HospitalPotassium [Moles/Vol]4.1 mmol/L3.5-5.1FOhioHealth Grant Medical Centerodium [Moles/Vol]144 mmol/U558-273VvlgruakrParkview Health Montpelier HospitalUrate [Mass/Vol]5.8 mg/dL3.5-7.2FProMedica Toledo HospitalUrea nitrogen [Mass/Vol]28.0 mg/dLHigh7.0-18.0[facility] HospitalUrea nitrogen/Creatinine [Mass ratio]13.5 mg/mgParkview Health Montpelier Hospital Laboratory - Urinalysison 00-96-3299Vsmrzdp (U) [Mass/Vol]19.4 mg/dLHigh<=11.9 [facility] HospitalLeukocytes [#/volume] corrected for nucleated erythrocytes in Blood by Automated counon 92-45-2646OHP corrected for nucl RBC Auto (Bld) [#/Vol]Leukocytes [#/volume] corrected for nucleated erythrocytes in Blood by Automated coun4.0-11.0[facility] HospitalH Auto (RBC) [Entitic mass]on 03-59-4848HBR (RBC) [Entitic mass]MCH [Entitic mass] by Automated ulswjLpj83.9-34.0[facility] HospitalHC Auto (RBC) [Mass/Vol]on 44-30-5951KGNT (RBC) [Mass/Vol]MCHC [Mass/volume] by Automated nrlxxReb79.9-35.2FMartins Ferry HospitalV Auto (RBC) [Entitic vol]on 66-87-6602VAJ (RBC) [Entitic vol]MCV [Entitic volume] by Automated countLow 80.0-94.0[facility] HospitalNo Panel Informationon - Hydroxy Vitamin D Total48.3 ng/mLParkview Health Montpelier HospitalComment on above:<20 ng/mL Vit D irgbokjil05-<30 ng/mL Vit D voisaxliuqgg52-141 ng/mL Vit D sufficient>100 ng/mL Potential GjzjlzqcKwqwzj33.30 ng/mL8.60-58.90[facility] HospitalParathyroid Hormone (Intact)62 pg/rB10-11QkglcbzbjParkview Health Montpelier HospitalComment on above:Performed at: - Lab[address] [id number] Director: Morgan Carpenter PhD, Phone: [phone] Level3.1 mg/dL2.6-4.7FProMedica Toledo HospitalUrine Random Degefxmcbr50.50 mg/dL20.00-300.00[facility] Platelet mean volume Auto (Bld) [Entitic vol]on 40-60-5639Aczgxqhh mean volume (Bld) [Entitic vol]Platelet mean volume [Entitic volume] in Blood by Automated count9.5-13.5FProMedica Toledo HospitalPlatelets Auto (Bld) [#/Vol]on 76-31-2940Jdzynbktk (Bld) [#/Vol]Platelets [#/volume] in Blood by Automated -854BhenrbkbmParkview Health Montpelier HospitalRBC Auto (Bld) [#/Vol]on 08-02-2024 RBC (Bld) [#/Vol]Erythrocytes [#/volume] in Blood by Automated countLow4.70-6.10 [facility] Centererum or plasma anion gap determinationon 35-55-2757Tljfr gap [Moles/Vol]Serum or plasma anion gap determinationParkview Health Montpelier HospitalUrine protein/creatinine ratioon 08-02-2024 Protein/Creatinine (U) [Ratio]Urine protein/creatinine ratioParkview Health Montpelier HospitalECG 12 Leadon 85-36-1048XMJ revealed normal sinus rhythm with first-degree AV block, septal myocardial infarction of undetermined age, diffuse repolarization abnormalities, abnormal ECGCPChillicothe Hospital Work Phone: ITPon [phone], [place] [address] Cardiac Rehab Report Signed Patient: ALEX ANDERSON MR#: [id number] : 1945 Acct:[id number] Age/Sex: 78 / M ADM Date: 07/23/24 Loc: CR Attending Dr: TEO AL Ordering Physician: Martita Garnica D.O. Date of Service: 07/23/24 Procedure(s): ITP Accession Number(s): [id number] cc: [facility] Test Date: 2024-07-23 Pat Name: ALEX ANDERSON Department: Room: - Gender: Male Political Advisor: : 1945 Requested By: MARTITA GARNICA Order Number: [id number] Reading MD: MARTITA GARNICA Interpretive Statements Session Date: Electronically Signed On 07-25-2024 8:18:39 EST by MARTITA GARNICA Dictated By: Martita Garnica D.O. Signed By: 07/25/24 0818 07/25/24817 DD/ 1540 TD/TT: Advanced Solutions Architect:Iker Roque MD - 07/25/2024 [place] [address] Cardiac Rehab Report Signed Patient: ALEX ANDERSON MR#: [id number] : 1945 Acct:[id number] Age/Sex: 78 / M ADM Date: 07/23/24 Loc: CR Attending Dr: TEO AL Ordering Physician: Martita Garnica D.O. Date of Service: 07/23/24 Procedure(s): ITP Accession Number(s): [id number] cc: [facility] Test Date: 2024-07-23 Pat Name: ALEX ANDERSON Department: Room: - Gender: Male Political Advisor: : 1945 Requested By: MARTITA GARNICA Order Number: [id number] Silverio CASILLAS: MARTITA GARNICA Interpretive Statements Session Date: Electronically Signed On 07-25-2024 8:18:39 EST by MARTITA GARNICA Dictated By: Martita Garnica D.O. Signed By: 07/25/2418 07/25/24817 DD/ 1540 TD/TT: Advanced Solutions Architect: MARSHAL HealthcareITPOrdered By: Radiologist Radiology on 14-74-7730[facility] Work Phone: ITPon 05-91-1940Hhumncdyu Study observation (narrative)MARSHAL HealthcareAmbulatory Visit Summaryon 37-21-0838Zspqfqkvpf Visit SummaryAmbulatory Visit Summary ALEX ANDERSON :1945 [...] HEATHER OMALLEY PA-C Where: [facility] [address] [place] [address] [place] [address]- Friday 2:00 PM EDT With: ARLENE CASILLAS, Katia Macias Where: [facility] [address] [address]- Medications What How Much When Instructions New cephalexin (Keflex 250 mg Cap) 1 Capsules By Mouth Every day Refills: 1 Pickup at [facility]/pharmacy #[id number] Unchanged albuterol (Albuterol (Eqv-ProAir HFA) 90 mcg/ [...] physician if questions or concerns Pharmacy Information [facility]/pharmacy #[id number]: [address], [place] [id number] [phone] What How Much When Comments Stop Taking [...] e-mail asking about yo (more content not included)...[facility] SystemUrology Office/Clinic Noteon 36-32-8546Xhbypti Office/Clinic NoteUrology Office/Clinic Note Chief Complaint cath [...] E&M of Est. Patient Moderate 30-39 Min 65858 Influenza immunization status assessed 1030F Insertion of temp indwelling bladder cath (zapien) simple 84224 Medication list documented in medical record 1159F [...] stop the suppressive abx. 3. 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 Patient Moderate 30-39 Min 13390 4. Bladder cancer (C67.9: Malignant neoplasm of bladder, unspecified) Original TURBT/extraction of 2 bladder calculi 09/12/22 - Noninvasive papillary urothelial carcinoma, low grade. Invasion is not recognized. A small fragment of detrusor muscle is present in the specimen. Last cysto 04/06/24. Next cysto 10/05/24. Orders: cephalexin, 250 mg = 1 cap(s), Oral, Daily, # 30 cap(s), Refills(s) 1, Pharmacy: [facility]/pharmacy #[id number], 187, cm, 07/15/24 10:46:00 [...] BARR, HEATHER Luu, URL In 1 month [address] [place] [address] Additional Instructions: Patient Education Bladder [...] 1 cap(s), Oral, (more content not included)...Normal [facility] Hospital - CincinnatiComment on above:Result Comment: Electronically Signed By: HEATHER OMALLEY PA-C\Date and Time Signed: 07/15/2513:06 ESTALL THYROID STIM HORMONEon 31-78-0813Axnsmrhnwdfluz and review of laboratory results AbnormalAlvin J. Siteman Cancer Center Qn0.039 m[IU]/[facility]gibbon HospitalCLINISYNCNHarry S. Truman [facility]' Hospital PROTHROMBIN TIME INR W/O COUMon 19-61-6986Esyrtatmspotab and review of laboratory resultsAbnormRiddle HospitalPT Coag (PPP) [Time]61.5 s Critically highJORDAN VALLEY MEDICAL CENTER HealthcareComment on above:RESULTS CALLED TO [facility] BY Vidya Valentine at 1126 TBH INR7.04Critically highHarry S. Truman Memorial Veterans' HospitalComment on above:RESULTS CALLED TO [facility] BY Vidya Valentine at 1127 DESIRED INR: 2.0-3.0 CONDITIONS NOT LISTED BELOW 2.5-3.5 FOR PROSTHETIC HEART VALVE REPLACEMENT 2.5-3.5 RECURRENT THROMBOSIS CLINISYNCHarry S. Truman Memorial Veterans' HospitalITPon 19-32-9550[place] [address] Cardiac Rehab Report Signed Patient: ALEX ANDERSON MR#: [id number] : 1945 Acct:[id number] Age/Sex: 78 / M ADM Date: 06/25/24 Loc: CR Attending Dr: TEO AL Ordering Physician: Martita Garnica D.O. Date of Service: 06/25/24 Procedure(s): ITP Accession Number(s): [id number] cc: [facility] Test Date: 2024-06-25 Pat Name: ALEX ANDERSON Department: Room: Gender: M Political Advisor: : Requested By: Order Number: [id number] Silverio MD: MARTITA GARNICA Interpretive Statements Session Date: Electronically Signed On 06-25-2024 18:17:01 EST by MARTITA GARNICA Dictated By: Martita Garnica D.O. Signed By: 06/25/24181606/25/241816 DD/ 1308 TD/TT: Advanced Solutions Architect:TBHRadiology, Radiologist, - 06/25/2024 [place] [address] Cardiac Rehab Report Signed Patient: ALEX ANDERSON MR#: [id number] : 1945 Acct:[id number] Age/Sex: 78 / M ADM Date: 06/25/24 Loc: CR Attending Dr: TEO AL Ordering Physician: Martita Garnica D.O. Date of Service: 06/25/24 Procedure(s): ITP Accession Number(s): [id number] cc: [facility] Test Date: 2024-06-25 Pat Name: ALEX ANDERSON Department: Room: Gender: M Political Advisor: : Requested By: Order Number: [id number] Silverio MD: MARTITA GARNICA Interpretive Statements Session Date: Electronically Signed On 06-25-2024 18:17:01 EST by MARTITA GARNICA Dictated By: Martita Garnica D.O. Signed By: 06/25/24181606/25/241816 DD/ 1308 TD/TT: Advanced Solutions Architect: MARSHAL HealthcareRadiology Study observation (narrative)MARSHAL HealthcareITPOrdered By: Radiologist Radiology on 14-82-1532HTXMHarry S. Truman Memorial Veterans' Hospital Work Phone: Urology Office/Clinic Noteon 24-99-1094Hskeffa Office/Clinic NoteUrology Office/Clinic Note HPI Staff 4 wk cath change. History of Present Illness I have reviewed and verified the staff HPI to be accurate for this encounter. Portions of this record may have been created with voice recognition artificial intelligence software, specifically [employer], [employer] and or [employer]. Substitutions may have occurred due to the inherent limitations of voice recognition and artificial intelligence software. Physical Exam General: Well developed, well nourished, in no acute distress. Here w/ today who does assist in providing some of his history. Assessment/Plan PRW pt 1. Gross hematuria (R31.0: Gross hematuria) [facility] ER 04/28/2024 with complaints of [...] virus vaccine, inactivated 03/26/2023 Recorded SARS-CoV-2 (COVID-19) mRNAMUL.ORD!w67740 03/29/2022 Recorded influenza virus vaccine, inactivated 03/16/2022 Recorded influenza virus vaccine, inactivated 03/06/2022 Recorded SARSCoV2 mRNA (more content not included)...[facility] Comment on above:Result Comment: Electronically Signed By: TC Boles APRN, [employer] X\.br\Date and Time Signed: 06/07/24 10:43 ESTAmbulatory Visit Summaryon 10-66-1069Mrwzskcjoo Visit SummaryAmbulatory Visit Summary ALEX ANDERSON :1945 [...] HEATHER OMALLEY PA-C Where: [facility] [address] [place] [address] [place] [address]- Friday 2:00 PM EDT With: Katia SAMUELS MD Where: [facility] [address] [place] [address]- Medications What How Much When Instructions Unchanged [...] you for choosing us for your care. [facility] Health SystemITPon [phone] [address] Cardiac Rehab Report Signed Patient: ALEX ANDERSON MR#: [id number] : 1945 Acct:[id number] Age/Sex: 78 / M ADM Date: 05/25/24 Loc: CR Attending Dr: TEO AL Ordering Physician: Martita Garnica D.O. Date of Service: 05/25/24 Procedure(s): ITP Accession Number(s): [id number] cc: [facility] Test Date: 2024-05-25 Pat Name: ALEX ANDERSON Department: Room: - Gender: Male Political Advisor: : 1945 Requested By: MARTITA GARNICA Order Number: [id number] Reading MD: MARTITA GARNICA Interpretive Statements Session Date: Electronically Signed On 05-26-2024 8:06:21 EST by MARTITA GARNICA Dictated By: Martita Garnica D.O. Signed By: 05/26/24 0805/26/24805 DD/ 0754 TD/TT: Advanced Solutions Architect:ALEMadiologbere, Radiologist, - 05/26/2024 [place] [address] Cardiac Rehab Report Signed Patient: ALEX ANDERSON MR#: [id number] : 1945 Acct:[id number] Age/Sex: 78 / M ADM Date: 05/25/24 Loc: CR Attending Dr: TEO AL Ordering Physician: Martita Garnica D.O. Date of Service: 05/25/24 Procedure(s): ITP Accession Number(s): [id number] cc: [facility] Test Date: 2024-05-25 Pat Name: ALEX ANDERSON Department: Room: - Gender: Male Political Advisor: : 1945 Requested By: MARTITA GARNICA Order Number: [id number] Reading MD: MARTITA GARNICA Interpretive Statements Session Date: Electronically Signed On 05-26-2024 8:06:21 EST by MARTITA GARNICA Dictated By: Martita Garnica D.O. Signed By: 05/26/24 0806 05/26/24 0806 DD/ 075 TD/TT: Advanced Solutions Architect: MARSHAL MadisonITPOrdered By: Radiologist Radiology on 46-16-7573[facility] Work Phone: ITPon 27-09-1519Rnkrjevqj Study observation (narrative)MARSHAL MadisonAlanine Aminotransferaseon 65-77-7143UPR [Catalytic activity/Vol]12 U/LNormal7[facility] Physician GroupComment on above: Performed By: #### PTT, PT #### [facility] [address] [id number] USAAlanine aminotransferase [Enzymatic activity/volume] in Serum or PlasmaOrdered By: Teo Al on 18-06-7949GGB [Catalytic activity/Vol]Alanine aminotransferase [Enzymatic activity/volume] in Serum or Plasma7[facility] HospitalAspartate Amino Transferaseon 86-31-6726FIC [Catalytic activity/Vol]13 U/IBrlyiu10-04Tng [facility]lands Physician GroupComment on above:Performed By: #### PTT, PT #### [facility] [address] [place] [address] USAAspartate aminotransferase [Enzymatic activity/volume] in Serum or PlasmaOrdered By: Teo Al on 60-63-8138ACS [Catalytic activity/Vol]Aspartate aminotransferase [Enzymatic activity/volume] in Serum or Rpuena55-98RlruhvtzaParkview Health Montpelier HospitalBasic Metabolic Panelon 05-21-2024 Anion gap [Moles/Vol]14.7 mmol/LNormal6.0-15.0[facility] Comment on above:Performed By: #### PTT, PT #### [facility] [address] [place] [address] USACalcium [Mass/Vol]9.1 mg/dLNormal8.6-10.3The [facility] Physician GroupComment on above:Performed By: #### PTT, PT #### [facility] [address] [place] [address] USAChloride [Moles/Vol]105 mmol/CCxpboa56-813Tnx [facility] Physician GroupComment on above:Performed By: #### PTT, PT #### [facility] [address] [place] [address] USACO2 [Moles/Vol]27.8 mmol/LAtwtpt30.0-31.0The [facility] Physician GroupComment on above:Performed By: #### PTT, PT #### [facility] [address] [place] [address] USACreatinine [Mass/Vol]2.20 mg/dLHigh0.70-1.30The [facility] Physician GroupComment on above:Performed By: #### PTT, PT #### [facility] [address] [place] [address] USAEstimated GFR29.538 mL/MinNormalThe [facility] Physician GroupComment on above:Performed By: #### PTT, PT #### [facility] [address] [place] [address] USAGlucose [Mass/Vol]124 mg/wVPwtx93-488Fdd [facility] Physician GroupComment on above:Result Comment: Random Glucose Reference Range is dependent on time and content of last meal. Glucose of more than 200 mg/dL in a nonstressed, ambulatory subject supports the diagnosis of Diabetes Mellitus. ADA recommended reference rangePerformed By: #### PTT, PT #### [facility] [address] [place] [address] USAPotassium [Moles/Vol]4.5 mmol/LNormal3.5-5.1The [facility] Physician GroupComment on above:Performed By: #### PTT, PT #### [facility] [address] [place] [address] USASodium [Moles/Vol]143 mmol/JXmspsa194-957Mti [facility] Physician GroupComment on above:Performed By: #### PTT, PT #### [facility] [address] [place] [address] USAUrea nitrogen [Mass/Vol]34 mg/dLHigh7-25The [facility] Physician GroupComment on above:Performed By: #### PTT, PT #### [facility] [address] [place] [address] USABasophils Auto (Bld) [#/Vol]Ordered By: Teo Al on 09-70-0552Pugyqqnzf (Bld) [#/Vol]Automated basophil count0.0-0.2FProMedica Toledo HospitalBasophils/100 WBC Auto (Bld)Ordered By: Teo Al on 69-40-1471Fbqsuvsoq/100 WBC (Bld)Automated basophil %.[facility] HospitalCalcium [Mass/volume] in Serum or PlasmaOrdered By: Teo Al on 64-30-8054Jtcsjlt [Mass/Vol]Calcium [Mass/volume] in Serum or Plasma8.6-10.3 [facility] HospitalCarbon dioxide, total [Moles/volume] in Serum or PlasmaOrdered By: Teo Al on 51-36-3534HL4 [Moles/Vol]Carbon dioxide, total [Moles/volume] in Serum or Tosuud01.0-31.0[facility] HospitalChloride [Moles/volume] in Serum or PlasmaOrdered By: Teo Al on 61-96-5324Rwfybgzn [Moles/Vol]Chloride [Moles/volume] in Serum or Kfyxeh53-508 [facility] HospitalCholesterol [Mass/volume] in Serum or Plasma Ordered By: Teo Al on 62-65-5718Uztyjtbqlcb [Mass/Vol]Cholesterol [Mass/volume] in Serum or EnjbpcAjq554-842SerzpbrcwParkview Health Mont[facility]ier Hospital Comment on above:Chol less than 200 mg/dl low riskChol 201-239 mg/dl borderline riskChol 240 mg/dl and greater high riskCholesterol in HDL [Mass/volume] in Serum or PlasmaOrdered By: Teo Al on 77-11-8105Jfzcspeimxf in HDL [Mass/Vol]Serum or plasma high density lipoprotein (HDL) cholesterol measurement [facility] HospitalComment on above:HDL CHOL ATP-III CLASSIFICATION Cardiovascular RiskHDL > or equal to 60 mg/dL LOWHDL < 40 mg/dL HIGHCholesterol in LDL Calc [Mass/Vol]Ordered By: Teo Al on 05-21-2024 Cholesterol in LDL [Mass/Vol]Cholesterol in LDL [Mass/volume] in Serum or Plasma by calculationParkview Health Montpelier HospitalComment on above:LDL ATP III CLASSIFICATIONLDL less than 100 mg/dL OptimalLDL 100-129 mg/dL Near or above htqjnaoYOI775-485 mg/dL Borderline highLDL 160-189 mg/dL HighLDL greater than 189 mg/dL Very highCholesterol in VLDL Calc [Mass/Vol]Ordered By: Teo Al on 67-10-2398Iswmjonuuop in VLDL [Mass/Vol]Cholesterol in VLDL [Mass/volume] in Serum or Plasma by calculationParkview Health Montpelier HospitalComplete Blood Count Auto Diffon 13-41-9631Fidxayhiz (Bld) [#/Vol]0.1 10*3/uLNormal0.0-0.2The [facility] Physician GroupComment on above:Result Comment: PERFORMED BY: [place] [address] PATHOLOGIST FLEET SALESPERSON ED CRUZ M.D.Performed By: #### PTT, PT #### [facility] [address] [place], [place] [address] USABasophils/100 WBC (Bld)1.0 %Normal.The [facility] Physician GroupComment on above:Performed By: #### PTT, PT #### [facility] [address] [place] [address] USAEosinophils (Bld) [#/Vol]0.2 10*3/uLNormal0.0-0.45The [facility] Physician GroupComment on above:Performed By: #### PTT, PT #### [place] [address] USAEosinophils/100 WBC (Bld)3.3 %Normal.The [facility] Physician GroupComment on above:Performed By: #### PTT, PT #### [place] [address] USAErythrocyte distribution width (RBC) [Ratio]18.1 %High 12.0-14.8The [facility] Physician GroupComment on above:Performed By: #### PTT, PT #### [place] [address] USAHematocrit (Bld) [Volume fraction]30.3 %Low38.8-50.0The [facility] Physician GroupComment on above:Performed By: #### PTT, PT #### [place] [address] USAHemoglobin (Bld) [Mass/Vol]9.5 g/dLLow13.0-17.0The [facility] Physician GroupComment on above:Performed By: #### PTT, PT #### [place] [address] USALymphocytes (Bld) [#/Vol]1.3 10*3/uLNormal1.00-4.8The [facility] Physician GroupComment on above:Performed By: #### PTT, PT #### [place] [address] USALymphocytes/100 WBC (Bld)22.2 %Normal.The [facility] Physician GroupComment on above:Performed By: #### PTT, PT #### [place] [address] USAMCH (RBC) [Entitic mass]23.3 pgLow27.5-35.2The [facility] Physician GroupComment on above:Performed By: #### PTT, PT #### [place] [address] USAMCV (RBC) [Entitic vol]74.4 fLLow83.5-101The [facility] Physician GroupComment on above:Performed By: #### PTT, PT #### [facility] [address] [place] [address] USAMean Corpuscular HGB Conc31.3 g/dLLow32.5-35.6The [facility] Physician GroupComment on above:Performed By: #### PTT, PT #### [facility] [address] [place] [address] USAMonocytes (Bld) [#/Vol]0.6 10*3/uLNormal0.0-0.8The [facility] Physician GroupComment on above:Performed By: #### PTT, PT #### [facility] [address] [place] [address] USAMonocytes/100 WBC (Bld)10.2 %Normal.The [facility] Physician GroupComment on above:Performed By: #### PTT, PT #### [facility] [address] [place] [address] USANeutrophils (Bld) [#/Vol]3.8 10*3/uLNormal1.8-7.7The [facility] Physician GroupComment on above:Performed By: #### PTT, PT #### [place] [address] USANeutrophils/100 WBC (Bld)63.3 %Normal.The [facility] Physician GroupComment on above:Performed By: #### PTT, PT #### [facility] [address] [place] [address] USANRBC%0.1 /100{WBC}Normal0-0.5The [facility] Comment on above:Performed By: #### PTT, PT #### [facility] [address] [place] [address] USAPlatelet mean volume (Bld) [Entitic vol]8.1 fLNormal 6.6-10.1The [facility] Physician GroupComment on above:Performed By: #### PTT, PT #### [address] [address] USAPlatelets (Bld) [#/Vol]315 10*3/vLCbvypg589-079Gmr [facility] Physician GroupComment on above:Performed By: #### PTT, PT #### [facility] [address] [place] [address] USARBC (Bld) [#/Vol]4.07 10*6/uLNormal3.90-5.60The [facility] Physician GroupComment on above:Performed By: #### PTT, PT #### [facility] [address] [place] [address] USAWBC (Bld) [#/Vol]6.1 10*3/uLNormal4.1-10.5The [facility] Physician GroupComment on above:Performed By: #### PTT, PT #### [facility] [address] [address] USACreatinine [Mass/volume] in Serum or PlasmaOrdered By: Teo Al on 64-31-1726Dxodsgzkwl [Mass/Vol]Creatinine [Mass/volume] in Serum or PlasmaHigh0.70-1.30[facility] HospitalECG 12 Leadon 16-82-1995ZXJ revealed normal sinus rhythm, IVCD, diffuse repolarization abnormalities, septal myocardial infarction of undetermined age, abnormal ECGCPACSPike Community Hospital Work Phone: Eosinophils Auto (Bld) [#/Vol]Ordered By: Teo Al on 38-98-6667Spnmfijvriq (Bld) [#/Vol]Automated eosinophil count0.0-0.45 [facility] HospitalEosinophils/100 WBC Auto (Bld)Ordered By: Teo Al on 84-18-6485Nacoecyjnyp/100 WBC (Bld)Automated eosinophil %. [facility] HospitalErythrocyte distribution width Auto (RBC) [Ratio]Ordered By: Teo Al on 67-11-6650Hsxjervzplj distribution width (RBC) [Ratio]Erythrocyte distribution width [Ratio] by Automated countHigh 12.0-14.8[facility] HospitalGlucose [Mass/volume] in Serum or PlasmaOrdered By: Teo Al on 93-29-3121Igsynhy [Mass/Vol]Glucose [Mass/volume] in Serum or SqgfhlAdex75-825EubqlmcrsParkview Health Montpelier Hospital Comment on above:ADA recommended reference rangeRandom Glucose Reference Range is dependent on time and content of last meal. Glucose of more than 200 mg/dL in a nonstressed, ambulatory subject supports the diagnosisof Diabetes Mellitus. Hematocrit Auto (Bld) [Volume fraction]Ordered By: Teo Al on 05-21-2024 Hematocrit (Bld) [Volume fraction]Hematocrit [Volume Fraction] of Blood by Automated oopftTmv95.8-50.0[facility] HospitalHemoglobin [Mass/volume] in BloodOrdered By: Teo Al on 25-61-7381Rjnpyzywkg (Bld) [Mass/Vol]Hemoglobin [Mass/volume] in WejdeQff16.0-17.0[facility] HospitalLeukocytes [#/volume] corrected for nucleated erythrocytes in Blood by Automated counOrdered By: Teo Al on 40-97-9521CDX corrected for nucl RBC Auto (Bld) [#/Vol]Leukocytes [#/volume] corrected for nucleated erythrocytes in Blood by Automated coun4.1-10.5FProMedica Toledo Hospital Lipid Panelon 55-34-9134Fbzxsemginm [Mass/Vol]89 mg/eMJuo384-287Mbk [facility] Physician GroupComment on above:Result Comment: Chol less than 200 mg/dl low risk Chol 201-239 mg/dl borderline risk Chol 240 mg/dl and greater high riskPerformed By: #### PTT, PT #### [facility] [address] [place] [address] USACholesterol in HDL [Mass/Vol]41 mg/fBPcdqub58-87Yfm [facility]park Physician GroupComment on above:Result Comment: HDL CHOL ATP-III CLASSIFICATION Cardiovascular Risk HDL > or equal to 60 mg/dL LOW HDL < 40 mg/dL HIGHPerformed By: #### PTT, PT #### [facility] [address] [place] [address] USACholesterol.total/Cholesterol in HDL [Mass ratio]2.2 {ratio}Normal<5.0The [facility]park Physician GroupComment on above:Performed By: #### PTT, PT #### [facility] [address] [place] [address] USALDL Cholesterol,Ewmxmzlmcf71 mg/dLNormal0-100The [facility]park Physician GroupComment on above:Result Comment: LDL ATP III CLASSIFICATION LDL less than 100 mg/dL Optimal LDL 100-129 mg/dL Near or above optimal LDL 130-159 mg/dL Borderline high LDL 160-189 mg/dL High LDL greater than 189 mg/dL Very highPerformed By: #### PTT, PT #### [facility] [address] [place] [address] USATriglyceride w/Ultuby26 mg/dLNormal0-149The [facility] Physician GroupComment on above:Result Comment: TRIG ATP III CLASSIFICATION TRIG less than 150 mg/dL Normal TRIG 150-199 mg/dL Borderline high TRIG 200-500 mg/dL High TRIG greater than 500 mg/dL Very high Standard traceable to the Center for Disease Conrtrol and Prevention (CDC) test method.Performed By: #### PTT, PT #### [facility] [address] [place] [address] USAVLDL OTFIQFKLASA08 mg/dLNormalThe [facility] Physician GroupComment on above:Performed By: #### PTT, PT #### [facility] [address] [place] [address] USALymphocytes Auto (Bld) [#/Vol]Ordered By: Teo Al on 09-91-0893Rlmwdzdmrqp (Bld) [#/Vol]Lymphocytes [#/volume] in Blood by Automated count1.00-4.8[facility]pelier HospitalLymphocytes/100 WBC Auto (Bld)Ordered By: Teo Al on 87-31-1108Hcpkqofkkop/100 WBC (Bld) Lymphocytes/100 leukocytes in Blood by Automated count.[facility] Auto (RBC) [Entitic mass]Ordered By: Teo Al on 88-46-0758RXG (RBC) [Entitic mass]MCH [Entitic mass] by Automated countLow 27.5-35.2FHolzer Medical Center – Jackson Auto (RBC) [Mass/Vol]Ordered By: Teo Al on 86-89-6948FIJY (RBC) [Mass/Vol]MCHC [Mass/volume] by Automated tzbydYwh81.5-35.6FProMedica Toledo HospitalMCV Auto (RBC) [Entitic vol] Ordered By: Teo Al on 39-06-4792HEW (RBC) [Entitic vol]MCV [Entitic volume] by Automated plzogZcp43.5-101Park[facility]pelier HospitalMonocytes Auto (Bld) [#/Vol]Ordered By: Teo Al on 63-92-6823Iwkzobkxe (Bld) [#/Vol]Automated blood monocyte count0.0-0.8[facility] Monocytes/100 WBC Auto (Bld)Ordered By: Teo Al on 05-21-2024 Monocytes/100 WBC (Bld)Automated monocyte %.[facility] Neutrophils Auto (Bld) [#/Vol]Ordered By: Teo Al on 05-21-2024 Neutrophils (Bld) [#/Vol]Neutrophils [#/volume] in Blood by Automated count 1.8-7.7FProMedica Toledo HospitalNeutrophils/100 WBC Auto (Bld)Ordered By: Teo Al on 40-09-3399Wsxczepxwta/100 WBC (Bld)Automated neutrophil %. [facility] HospitalNo Panel InformationOrdered By: Teo Al on 45-06-6180Jxgwekytp GFR (CKD-EPI)29.538 mL/MinParkview Health Montpelier HospitalPharmacy Creatinine Clearance (ChemN/[facility] Nucleated erythrocytes [Presence] in Blood by Automated countOrdered By: Teo Al on 96-71-8225Vivydothf RBC Auto Ql (Bld)Nucleated erythrocytes [Presence] in Blood by Automated count0-0.5FProMedica Toledo Hospital Platelet mean volume Auto (Bld) [Entitic vol]Ordered By: Teo Al on 41-23-6068Vcezmuhy mean volume (Bld) [Entitic vol]Platelet mean volume [Entitic volume] in Blood by Automated count6.6-10.1FProMedica Toledo Hospital Platelets Auto (Bld) [#/Vol]Ordered By: Teo Al on 38-95-4914Gcqshvjbc (Bld) [#/Vol]Platelets [#/volume] in Blood by Automated igzsi558-650IvxgczktpParkview Health Montpelier HospitalPotassium [Moles/volume] in Serum or PlasmaOrdered By: Teo Al on 98-66-5295Pktksxdwo [Moles/Vol]Potassium [Moles/volume] in Serum or Plasma3.5-5.1FProMedica Toledo HospitalRBC Auto (Bld) [#/Vol] Ordered By: Teo Al on 45-14-8523JYT (Bld) [#/Vol]Erythrocytes [#/volume] in Blood by Automated count3.90-5.60[facility] Medical Centererum or plasma anion gap determinationOrdered By: Teo Al on 54-73-2977Zszjq gap [Moles/Vol]Serum or plasma anion gap determination6.0-15.0[facility] Medical Centererum or plasma total cholesterol/high density lipoprotein (HDL) cholesterol mass ratOrdered By: Teo Al on 05-21-2024 Cholesterol.total/Cholesterol in HDL [Mass ratio]Serum or plasma total cholesterol/high density lipoprotein (HDL) cholesterol mass rat<5.0[facility]ner Medical Centerodium [Moles/volume] in Serum or PlasmaOrdered By: Teo lA on 67-19-1145Grxjsv [Moles/Vol]Sodium [Moles/volume] in Serum or Lkbpjh480-881QyomcyhdhParkview Health Montpelier HospitalThyroid Stimulating Hormoneon 13-72-9523PSA Qn0.11 m[IU]/LLow0.45-5.33The [facility] Physician GroupComment on above:Result Comment: PERFORMED BY: [address] [place] [address] PATHOLOGIST FLEET SALESPERSON ED CRUZ M.D.Performed By: #### PTT, PT #### [place] [address] USAThyrotropin [Units/volume] in Serum or PlasmaOrdered By: Teo Al on 82-40-7468WUB QnThyrotropin [Units/volume] in Serum or Plasma Low0.45-5.33[facility] HospitalTriglyceride [Mass/volume] in Serum or PlasmaOrdered By: Teo Al on 45-07-1403Meptyeqrbsew [Mass/Vol] Triglyceride [Mass/volume] in Serum or Plasma0-149[facility]pelier HospitalComment on above:TRIG ATP III CLASSIFICATIONTRIG less than 150 mg/dL NormalTRIG 150-199 mg/dL Borderline highTRIG 200-500 mg/dL High TRIG greater than 500 mg/dL Very highStandard traceable to the Center for Disease Conrtrol and Prevention (CDC) test method.Urea nitrogen [Mass/volume] in Serum or Plasma Ordered By: Teo Al on 05-35-5566Kidu nitrogen [Mass/Vol]Urea nitrogen [Mass/volume] in Serum or PlasmaRichwood Area Community Hospital7-25Park[facility]ier HospitalWBC Auto (Bld) [#/Vol]Ordered By: Teo Al on 24-46-7311PDM (Bld) [#/Vol] Leukocytes [#/volume] in Blood by Automated count4.1-10.[address] [place], [place] [address]ITPon 46-94-8290[place] [address] Cardiac Rehab Report Signed Patient: ALEX ANDERSON MR#: [id number] : 1945 Acct:[id number] Age/Sex: 78 / M ADM Date: 04/26/24 Loc: CR Attending Dr: TEO AL Ordering Physician: Martita Garnica D.O. Date of Service: 04/26/24 Procedure(s): ITP Accession Number(s): [id number] cc: [facility] Test Date: 2024-04-26 Pat Name: ALEX ANDERSON Department: Room: - Gender: Male Political Advisor: : 1945 Requested By: MARTITA GARNICA Order Number: [id number] Reading MD: MARTITA GARNICA Interpretive Statements Session Date: Electronically Signed On 04-27-2024 20:20:06 EST by MARTITA GARNICA Dictated By: Martita Garnica D.O. Signed By: 04/27/24201904/27/242019 DD/ 18 TD/TT: Advanced Solutions Architect:TBHRadiology, Radiologist, - 04/27/2024 [place] [id number] Cardiac Rehab Report Signed Patient: ALEX ANDERSON MR#: [id number] : 1945 Acct:[id number] Age/Sex: 78 / M ADM Date: 04/26/24 Loc: CR Attending Dr: TEO AL Ordering Physician: Martita Garnica D.O. Date of Service: 04/26/24 Procedure(s): ITP Accession Number(s): [id number] cc: [facility] Test Date: 2024-04-26 Pat Name: ALEX ANDERSON Department: Room: - Gender: Male Political Advisor: : 1945 Requested By: MARTITA GARNICA Order Number: [id number] Reading MD: MARTITA GARNICA Interpretive Statements Session Date: Electronically Signed On 04-27-2024 20:20:06 EST by MARTITA GARNICA Dictated By: Martita Garnica D.O. Signed By: 04/27/24201904/27/242019 DD/ 1219 TD/TT: Advanced Solutions Architect: MARSHAL MadisonITPOrdered By: Radiologist Radiology on 01-62-5192[facility] Work Phone: ITPon [phone] Study observation (narrative)MARSHAL The Christ HospitalUroVysion Fish and Urine Cyto ([facility])on 04-12-2024 UVFISH & UCDiagnosis InfoInvalid Interpretation [facility] Comment on above:Result Comment: A:Urine,Bladder Wash:Bladder Wash [...] with cytology and cystoscopy results. * CPT: 66745, 64157. Microscopic Notes - Microscopic Notes - Abnormal cells 9p21 deletions: Abnormal cells aneploid events: Total cells analyzed: 25 Hematuria: Gross Description Site ID:A color Colorless fixative Alcohol Received 90 mls of slightly cloudy colorless fluid with the patient's name and, Bladder Wash on the vial. Electronically signed by : on: 04/12/2024 16:53:27Performed By: #### [id number] #### [facility] [address] [place], [place] [address]Wliqerjtbz Visit Summaryon 06-21-1431Ycsqvdvoit Visit Summary Ambulatory Visit Summary ALEX ANDERSON [...] Follow Up with ARLENE CASILLAS, Katia Macias, ADRIA When: Where: [facility] [address] [place] [address]- Medications What How Much When Instructions Unchanged [...] care provider may (more content not included)...Normal [facility] 01-46-2222GhhxcoakbFfukirnbq From: Dana Rivas To: EU - Recalls Samuels; Sent: 02/20/2024 14:44:26 EDT Show up: 07/24/2024 14:44:00 EST Subject: Cysto/FISH/cytol, cath chng Due Date/Time: 08/16/2024 14:44:00 EDT Reminder/Recall Patient is due in September 2024 for 6 month cysto/fish/cytol, cath change (bt ck) Patient sched 10/05/24NoLutheran HospitalUroVysion Fish and Urine Cyto ([facility])on 92-35-1207HFIB Method of ExtractionBladder [facility] Cr[facility] HospitalComment on above:Performed By: #### [id number] #### [facility] [address] [place], [place] [address]JHNF Number of Iwem9Rzdojne Interpretation CodeSelect Medical Specialty Hospital - CincinnatiComment on above:Performed By: #### [id number] #### [facility] [address] [place], [place] [address]RPDP SpecimenBladder [facility] Comment on above:Performed By: #### [id number] #### [facility] [address] [place], [place] [address]CUQQ Type of ServiceTechnical OnlyTrinity Health SystemComment on above:Performed By: #### [id number] #### [facility] [address] [place], [place] [address]Cbkwatq Office/Clinic Noteon 24-37-6575Fxngrmk Office/Clinic NoteUrology Office/Clinic Note Chief Complaint cysto [...] going to start monthly zapien changes. [1] [facility] ER on 09/15/22 due to catheter clogged. Pt was diagnosed w/ UTI and treated w/ Cipro 500 mg BIDfor x 7 days. Attempted urocuff, pt was unable to void, PVR 348 cc, cath placed 10/04/22. [2] Pt has been in the ER multiple times due to issues with Zapien. Most recently, pt presented to [facility] ER 09/29/23 and 09/30/23 due to catheter not draining. [3] Cath changed IO today, see procedure section. 3. BPH with urinary obstruction (N40.1: Benign prostatic hyperplasia with lower urinary tract symptoms) S/p Rezum 06/10/23. Not taking any BPH meds. Maintained with chronic zapien, see #2. Follow-up With When Contact Information ARLENE CASILLAS, Katia Macias, URL [facility] [address], [place] [address]- Additional Instructions: 6 mos surveillance cysto/bt ck/FISH/cytol Patient Education Indwelling Urinary Catheter Insertion, Care After Cancer Screening for Males I, Citlalli Rushing, personally scribed for Dr. Samuels on 04/06/2024 11:35:18. . Documentation recorded by the scribe, Citlalli Rushing, accurately reflects the services(s) I performed and decisions made by me. Authenticated by Dr. Samuels on 04/06/2024 11:36:29. Problem List/Past Medical History (more content not included)...Trinity Health SystemComment on above: Result Comment: Electronically Signed By: Katia SAMUELS MD R\.br\Date and Time Signed: 04/06/24 11:36 EST\.br\Electronically Co-Signed By: Ciltalli Rushing P\.br\Date and Time Co-Signed: 04/06/24 11:35 ESTITPon 47-45-6140Aq[address] [address] Cardiac Rehab Report Signed Patient: ALEX ANDERSON MR#: [id number] : 1945 Acct:[id number] Age/Sex: 78 / M ADM Date: 03/31/24 Loc: CR Attending Dr: TEO AL Ordering Physician: Martita Garnica D.O. Date of Service: 03/31/24 Procedure(s): ITP Accession Number(s): [id number] cc: [facility] Test Date: 2024-03-31 Pat Name: ALEX ANDERSON Department: Room: - Gender: Male Political Advisor: : 1945 Requested By: MARTITA GARNICA Order Number: [id number] Reading MD: MARTITA GARNICA Interpretive Statements Session Date: Electronically Signed On 03-31-2024 20:54:52 EST by MARTITA GARNICA Dictated By: Martita Garnica D.O. Signed By: 03/31/24205403/31/242054 DD/ 1239 TD/TT: Advanced Solutions Architect:TBHRadiology, RadiologistMD - 03/31/2024 [place] [address] Cardiac Rehab Report Signed Patient: ALEX ANDERSON MR#: [id number] : 1945 Acct:[id number] Age/Sex: 78 / M ADM Date: 03/31/24 Loc: CR Attending Dr: TEO AL Ordering Physician: Martita Garnica D.O. Date of Service: 03/31/24 Procedure(s): ITP Accession Number(s): [id number] cc: [facility] Test Date: 2024-03-31 Pat Name: ALEX ANDERSON Department: Room: - Gender: Male Political Advisor: : 1945 Requested By: MARTITA GARNICA Order Number: [id number] Silverio MD: MARTITA GARNICA Interpretive Statements Session Date: Electronically Signed On 03-31-2024 20:54:52 EST by MARTITA GARNICA Dictated By: Martita Garnica D.O. Signed By: 03/31/24205403/31/242054 DD/ 1239 TD/TT: Advanced Solutions Architect: MARSHAL HealthcareRadiology Study observation (narrative)MARSHAL HealthcareITPOrdered By: Radiologist Radiology on 14-49-5695[facility] Work Phone: ITUwh [phone] [place] [address] Cardiac Rehab Report Signed Patient: ALEX ANDERSON MR#: [id number] : 1945 Acct:[id number] Age/Sex: 78 / M ADM Date: 03/24/24 Loc: CR Attending Dr: TEO AL Ordering Physician: Martita Garnica D.O. Date of Service: 03/24/24 Procedure(s): ITP Accession Number(s): [id number] cc: [facility] Test Date: 2024-03-24 Pat Name: ALEX ANDERSON Department: Room: - Gender: Male Political Advisor: : 1945 Requested By: MARTITA GARNICA Order Number: [id number] Silverio MD: MARTITA GARNICA Interpretive Statements Session Date: Electronically Signed On 03-24-2024 23:29:20 EDT by MARTITA GARNICA Dictated By: Martita Garnica D.O. Signed By: 03/24/24232803/24/242328 DD/ 1146 TD/TT: Advanced Solutions Architect:ALEMadiologIker blackburn, - 03/24/2024 [place] [address] Cardiac Rehab Report Signed Patient: ALEX ANDERSON MR#: [id number] : 1945 Acct:[id number] Age/Sex: 78 / M ADM Date: 03/24/24 Loc: CR Attending Dr: TEO AL Ordering Physician: Martita Garinca D.O. Date of Service: 03/24/24 Procedure(s): ITP Accession Number(s): [id number] cc: [facility] Test Date: 2024-03-24 Pat Name: ALEX ANDERSON Department: Room: - Gender: Male Political Advisor: : 1945 Requested By: MARTITA GARNICA Order Number: [id number] Reading MD: MARTITA GARNICA Interpretive Statements Session Date: Electronically Signed On 03-24-2024 23:29:20 EDT by MARTITA GARNICA Dictated By: Martita Garnica D.O. Signed By: 03/24/24232803/24/242328 DD/ 1146 TD/TT: Advanced Solutions Architect: MARSHAL HealthcareRadiology Study observation (narrative)MARSHAL HealthcareITPOrdered By: Radiologist Radiology on 05-60-6471[facility] Work Phone: rt PULMONARY FUNCTION TESTon 13-99-4032[place] [address] Respiratory Report Signed Patient: ALEX ANDERSON MR#: [id number] : 1945 Acct:[id number] Age/Sex: 78 / M ADM Date: 03/23/24 Loc: CARD Attending Dr: TEO AL Ordering Physician: TEO AL Date of Service: 03/23/24 Procedure(s): RT pulmonary function test Accession Number(s): [id number] cc: [facility] Test Date: 2024-03-23 Pat Name: ALEX ANDERSON Department: Room: - Gender: Male Political Advisor: Reymundo ErwinMANGO urban : 1945 Requested By: 358 Order Number: [id number] Reading MD: Aayush Gallo Interpretive Statements Pulmonary [...] By: Aayush Gallo D.O. Signed By: 03/24/24 1758 DD/ 1259 TD/TT: Advanced Solutions Architect:TBHRadiology, Radiologist, - 03/24/2024 [place] [address] Respiratory Report Signed Patient: ALEX ANDERSON MR#: [id number] : 1945 Acct:[id number] Age/Sex: 78 / M ADM Date: 03/23/24 Loc: CARD Attending Dr: TEO AL Ordering Physician: TEO AL Date of Service: 03/23/24 Procedure(s): RT pulmonary function test Accession Number(s): [id number] cc: [facility] Test Date: 2024-03-23 Pat Name: ALEX ANDERSON Department: Room: - Gender: Male Political Advisor: Reymundo Alamo RRT : 1945 Requested By: 358 Order Number: [id number] Reading MD: Aayush Gallo Interpretive Statements Pulmonary [...] Signed By: 03/24/24 1750 DD/ 1259 TD/TT: Advanced Solutions Architect: MARSHAL Ma PULMONARY FUNCTION TESTOrdered By: Radiologist Radiology on 45-29-9084ZHXOHarry S. Truman [facility]' [facility] Work Phone: aLL HEMOGLOBINon 71-27-3447Fodttgttno (Bld) [Mass/Vol] 9.5 g/dLLow14.0 - 18.0 g/dLNOTN HealthcareInterpretation and review of laboratory resultsAbnormalNOFreeman Neosho HospitalCLINISYNCNOMS HealthcareRT PULMONARY FUNCTION TESTon 99-56-3135Ezrfxreuk Study observation (narrative)[facility] No Panel InformationOrdered By: Rosalie Bailey on 58-25-6636Lhyol Strep (POC) [facility] HospitalXR chest 2V*on 02-68-3807AU chest 2V*[place] [address] XRay Report Signed Patient: Alex Anderson MR#: [id number] : 1945 Acct:[id number] Age/Sex: 78 / M ADM Date: 03/08/24 Loc: XDUCLY Room: Type: [facility] Attending Dr: Rosalie Bailey APRN Copies to: [...] Corky Max M.D.03/08/2024 2:03 PM Dictation Location: [place] [address] Transcribed By: [facility] 03/08/24 1403 Dictated By: Corky Max II, MD 03/08/24 1402 Signed By: 03/08/24 140[facility] Physician GroupSHRINERS HOSPITAL HEMOGLOBINon 03-04-2024 Hemoglobin (Bld) [Mass/Vol]10.0 g/dLLow14.0 - 18.0 g/dLHarry S. Truman Memorial [facility]' Hospital Interpretation and review of laboratory resultsAbnoPorter Regional HospitalYNPiedmont Medical Center 04-71-8059UcajzpccoCfsgwuvof From: Dana Rivas To: EU - Recalls Samuels; Sent: 12/02/2023 11:09:10 EDT Show up: [...] was notified ok to keep cysto on 04/06/24.Ruiz ReyesWestern Maryland Hospital CenterECG 12 Leadon 66-54-2572IAU revealed normal sinus rhythm, left axis deviation, 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, QT prolongation, IVCDCPACSPike Community Hospital Work Phone: bacteria [Presence] in Urine by AutomatedOrdered By: Rob Almazan on 48-37-3343Rawhedun Auto Ql (U)Rare [HPF]None Seen [facility] HospitalBilirubin Test strip Ql (U)Ordered By: Rob Almazan on 00-35-9174Yyuehjesl Ql (U)NegativeNegativeParkview Health Montpelier HospitalColor of Urine by AutoOrdered By: Rob Almazan on 05-34-5915Nopmp (U)YellowNormalYellowParkview Health Montpelier HospitalComment on above:Order Comment: Name Collection Type:: Zapien CatheterPerformed By: #### ADDONUAPLUS, CUU #### [facility] [address] [place] [id number] USADipstick and Microscopicon 33-58-0086Nrmclazx,UrineRare NormalNone SeenThe [facility]park Physician GroupComment on above:Order Comment: Name Collection Type:: Zapien CatheterPerformed By: #### ADDONUAPLUS, CUU #### [facility] [address] [place] [address] USABilirubin,UrineNegativeNormalNegativeThe [facility] Physician GroupComment on above:Order Comment: Name Collection Type:: Zapien CatheterPerformed By: #### ADDONUAPLUS, CUU #### [facility] [address] [place] [id number] USAGlucose Ql (U)NormalNormalNormalThe [facility] Physician GroupComment on above:Order Comment: Name Collection Type:: Zapien Catheter Performed By: #### ADDONUAPLUS, CUU #### [facility] [address] [place] [address] USAHyaline Casts,UrineNoneNormal0-8The [facility] Physician GroupComment on above:Order Comment: Name Collection Type:: Zapien Catheter Performed By: #### ADDONUAPLUS, CUU #### [place] [address] USAMucus,UrineRareNormalThe [facility] Physician GroupComment on above:Order Comment: Name Collection Type:: Zapien CatheterResult Comment: PERFORMED BY: [place] [address] PATHOLOGIST FLEET SALESPERSON OREN OWEN M.D.Performed By: #### ADDONUAPLUS, CUU #### [place] [address] USANitrite,UrineNegativeNormalNegativeEd Fraser [facility] Hospital Physician GroupComment on above:Order Comment: Name Collection Type:: Zapien Catheter Performed By: #### ADDONUAPLUS, CUU #### [place] [address] USAOccult Blood,Urine2+HighNegativeThe [facility] Physician GroupComment on above:Order Comment: Name Collection Type:: Zapien CatheterResult Comment: PERFORMED BY: [place] [address] PATHOLOGIST FLEET SALESPERSON OREN OWEN M.D.Performed By: #### ADDONUAPLUS, CUU #### [place] [address] USAProtein,UrineTraceHighNegativeEd Fraser [facility] Hospital Physician GroupComment on above:Order Comment: Name Collection Type:: Zapien Catheter Performed By: #### ADDONUAPLUS, CUU #### [place] [address] USARBC,Lfnbh43-31Todo7-9Zep [facility] Physician GroupComment on above:Order Comment: Name Collection Type:: Zapien CatheterPerformed By: #### ADDONUAPLUS, CUU #### [place] [address] USASpecificy [place],Urine1.502Xgnvxs8.001-1.030Ed [facility] Physician GroupComment on above:Order Comment: Name Collection Type:: Zapien CatheterPerformed By: #### ADDONUAPLUS, CUU #### [place] [address] USAUrobilinogen,Urine2 mg/dLHighNormalThe [facility] Physician GroupComment on above:Order Comment: Name Collection Type:: Zapien Catheter Performed By: #### ADDONUAPLUS, CUU #### [place] [address] USAWBC CLUMP, UrineRareHighNone SeenEd Fraser Memorial Hospital Physician GroupComment on above:Order Comment: Name Collection Type:: Zapien Catheter Performed By: #### ADDONUAPLUS, CUU #### [place] [address] USAWBC,Mzzxv15-44Wnkx2-7Nzi [facility] Physician GroupComment on above:Order Comment: Name Collection Type:: Zapien CatheterPerformed By: #### ADDONUAPLUS, CUU #### [place] [address] USAECG 12 lead ECGon 50-97-3993IZU 12 lead ECGSUMMA HEALTH Main [place] [address] [place] [address] Electrocardiograph Report Signed Patient: Alex Anderson MR#: [id number] 38 : 1945 Acct:[id number] Age/Sex: 78 / M ADM Date: 01/16/24 Loc: Room: [address] [place] [address] Type: ADM IN Attending Dr: Nas Pruett [...] Acute Anteroseptal infarct Lateral injury pattern ACUTE CT / STEMI Abnormal ECG When compared with ECG of 19-Jan-2024 07:09, Serial changes of Anteroseptal infarct present Confirmed by Misael Campbell ([id number]) on 01/23/2024 11:36:17 AM Referred By: Electronically Signed By: Misael Campbell Transcribed By: MUS Signed By Misael Campbell MD 01/23/24 [facility] Physician GroupEpithelial cells.squamous [#/area] in Urine sediment by Automated countOrdered By: Rob Almazan on 59-78-1983Lftmhlvolw cells.squamous Auto (Urine sed) [#/Area]N/[facility]. Elizabeth HospitalErythrocytes [#/area] in Urine sediment by Automated countOrdered By: Rob Almazan on 12-10-3760JLU Auto (Urine sed) [#/Area] 20-49 [HPF]High0-4FProMedica Toledo HospitalGlucose [Mass/volume] in Urine by Test stripOrdered By: Rob Almazan on 82-83-8032Etivyif Test strip (U) [Mass/Vol]Normal mg/dLNoHolzer Health System Hemoglobin Test strip Ql (U)Ordered By: Rob Almazan on 01-23-2024 Hemoglobin Ql (U)2+HighNegMercy Health Springfield Regional Medical CenterHyaline casts [#/area] in Urine sediment by Automated countOrdered By: Rob Almazan on 88-19-0006Grjujuy casts Auto (Urine sed) [#/Area]None [LPF]0-8[facility] HospitalKetones [Presence] in Urine by Test stripOrdered By: Rob Almazan on 30-86-3703Cycblst Ql (U)NegativeNormalNegMercy Health Springfield Regional Medical CenterComment on above:Order Comment: Name Collection Type:: Zapien CatheterPerformed By: #### ADDONUAPLUS, CUU #### [place] [address] USALeukocyte clumps [Presence] in Urine by AutomatedOrdered By: Rob Almazan on 73-19-5345Ojmwdyqyg clumps Auto Ql (U)Rare [LPF]High None SeenParkview Health Montpelier HospitalLeukocyte esterase [Presence] in Urine by Test stripOrdered By: Rob Almazan on 00-97-9346Oobxrwcyu esterase Test strip Ql (U)4+HighNegMercy Health Springfield Regional Medical CenterComment on above:Order Comment: Name Collection Type:: Zapien CatheterPerformed By: #### BLAKE, CUU #### [facility] [address] [place] [address] USALeukocytes [#/area] in Urine sediment by Automated count Ordered By: Rob Almazan on 97-36-1850FYQ Auto (Urine sed) [#/Area]20-49 [HPF]High0-4FProMedica Toledo HospitalMucus [Presence] in Urine by AutomatedOrdered By: Rob Almazan on 40-52-6473Pdswd Auto Ql (U)Rare [LPF][facility] HospitalNitrite Test strip Ql (U)Ordered By: Rob Almazan on 01-67-3170Xuegign Ql (U)NegativeNegMercy Health Springfield Regional Medical CenterProtein Test strip (U) [Mass/Vol]Ordered By: Rob Almazan on 32-02-6986Kmorbnr (U) [Mass/Vol]Trace mg/dLHighNegGalion Hospitalpecific gravity Test strip (U) [Rel density]Ordered By: Rob Almazan on 88-99-0096Nqchdpvv gravity (U) [Rel density]1.022 1.001-1.030[facility] Montpelier HospitalUrine Cultureon 48-24-7426Wnnzkaux identified Cx Nom (U)ORGANISM: Enterococcus faecalis (O:ENTFAC) [place] Count 30,000 Aerobic RITESH Charge (PCMIC38) SUSCEPTIBILITY [...] RESISTANT TO ALL B-LACTAM DRUGS. PERFORMED BY: [place] [address] PATHOLOGIST FLEET SALESPERSON OREN OWEN M.D.NormalEd Fraser Memorial Hospital Physician GroupComment on above:Performed By: #### BLAKE CUU #### [place] [address] USAUrine appearanceOrdered By: Rob Almazan on 26-41-0530Kpshbyqsjg (U)ClearNormalClearParkview Health Montpelier HospitalComment on above:Order Comment: Name Collection Type:: Zapien CatheterPerformed By: #### BLAKE, CUU #### [place] [address] USAUrine culture routineOrdered By: Rob Almazan on 58-19-3268Saebgatn identified Cx Nom (U)Enterococcus faecalisAbCleveland Clinic Marymount HospitalUrobilinogen Test strip (U) [Mass/Vol]Ordered By: Rob Almazan on 10-36-4480Shggjluajwdf (U) [Mass/Vol]2 mg/dLAshtabula General HospitalpH of Urine by Test stripOrdered By: Rob Almazan on 15-70-0588cQ (U)5.5 [pH]Normal5.0-9.0[facility] Montpelier HospitalComment on above:Order Comment: Name Collection Type:: Zapien Catheter Performed By: #### BLAKE, CUU #### [place] [address] USAAutomated basophil %Ordered By: Nas Pruett on 01-21-2024 Basophils/100 WBC (Bld)0.5 %Normal.[facility] Montpelier HospitalComment on above:Performed By: #### PTT, PT #### [place] [address] USAAutomated basophil countOrdered By: W Flynn on 01-98-5797Eaqcinwun (Bld) [#/Vol]0.0 10*3/uLNormal0.0-0.2FProMedica Toledo HospitalComment on above:Result Comment: PERFORMED BY: [place] [address] PATHOLOGIST FLEET SALESPERSON OREN OWEN M.D.Performed By: #### PTT, PT #### [place] [address] USAAutomated blood monocyte countOrdered By: Nas Pruett on 53-46-6498Dsrjcosge (Bld) [#/Vol]1.4 10*3/uLHigh0.0-0.8[facility] Montpelier HospitalComment on above:Performed By: #### PTT, PT #### [place] [address] USAAutomated eosinophil %Ordered By: W Flynn on 01-21-2024 Eosinophils/100 WBC (Bld)3.6 %Normal.[facility]pelier HospitalComment on above:Performed By: #### PTT, PT #### [place] [address] USAAutomated eosinophil countOrdered By: Nas Pruett on 62-74-1662Shdnhxoiqqj (Bld) [#/Vol]0.3 10*3/uLNormal0.0-0.45[facility]ier HospitalComment on above:Performed By: #### PTT, PT #### [place] [address] USAAutomated monocyte %Ordered By: W Flynn on 01-21-2024 Monocytes/100 WBC (Bld)16.0 %Normal.[facility] Montpelier HospitalComment on above:Performed By: #### PTT, PT #### [place] [address] USAAutomated neutrophil %Ordered By: Nas rPuett on 01-21-2024 Neutrophils/100 WBC (Bld)64.3 %Normal.[facility] Montpelier HospitalComment on above:Performed By: #### PTT, PT #### [place] [id number] USABasic Metabolic Panelon 61-99-6783Qdphxpievy Clr Calc Ytfeercm87.56NormalThe [facility] Physician GroupComment on above:Result Comment: PERFORMED BY: [place] [address] PATHOLOGIST FLEET SALESPERSON OREN OWEN M.D.Performed By: #### PTT, PT #### [place] [address] USAGFR/1.73 sq M.predicted MDRD (S/P/Bld) [Vol rate/Area] 43.613 mL/min/{1.73_m2}NormalThe [facility] Physician GroupComment on above: Performed By: #### PTT, PT #### [place] [address] USACalcium [Mass/volume] in Serum or PlasmaOrdered By: Nas Pruett on 54-87-4894Emuinay [Mass/Vol]8.5 mg/dLLow8.6-10.3FProMedica Toledo HospitalComment on above:Performed By: #### PTT, PT #### [place] [address] USACarbon dioxide, total [Moles/volume] in Serum or Plasma Ordered By: Nas Pruett on 07-64-4466RJ5 [Moles/Vol]20.1 mmol/LLow21.0-31.0 [facility]pelier HospitalComment on above:Performed By: #### PTT, PT #### [place] [address] USAChloride [Moles/volume] in Serum or PlasmaOrdered By: Nas Pruett on 01-12-5900Xdynxpyi [Moles/Vol]107 mmol/FGcisxo01-183WnxgnpzpwParkview Health Montpelier HospitalComment on above:Performed By: #### PTT, PT #### [facility] [address] [place] [address] USAComplete Blood Count Auto Diffon 78-93-8204Ztmr Corpuscular HGB Conc32.9 g/zWAcxdpo49.5-35.6The [facility] Physician GroupComment on above:Performed By: #### PTT, PT #### [facility] [address] [place] [address] USANRBC%0.1 /100{WBC}Normal0-0.5The [facility] Comment on above:Performed By: #### PTT, PT #### [place] [address] USACreatinine [Mass/volume] in Serum or PlasmaOrdered By: Nas Pruett on 21-01-6821[place] [Mass/Vol]1.59 mg/dLHigh0.70-1.30[facility]ier HospitalComment on above:Performed By: #### PTT, PT #### [place] [address] USAErythrocyte distribution width [Ratio] by Automated count Ordered By: Nas Pruett on 78-36-9270Glrsnggnvkj distribution width (RBC) [Ratio] 15.6 %High12.0-14.8[facility]pelier HospitalComment on above:Performed By: #### PTT, PT #### [facility] [address] [place] [address] USAErythrocytes [#/volume] in Blood by Automated countOrdered By: Nas Pruett on 08-09-8480UKD (Bld) [#/Vol]4.33 10*6/uLNormal3.90-5.60 [facility]ier HospitalComment on above:Performed By: #### PTT, PT #### [facility] [address] [place] [address] USAGlucose [Mass/volume] in Serum or PlasmaOrdered By: Nas Pruett on 30-74-4637Glfrjjk [Mass/Vol]121 mg/uLDgyd75-695PzttapjdfParkview Health Montpelier HospitalComment on above:ADA recommended reference rangeRandom Glucose [...] reference rangePerformed By: #### PTT, PT #### [facility] [address] [place] [address] USAHematocrit [Volume Fraction] of Blood by Automated count Ordered By: Nas Pruett on 05-84-1890Hnqvdthpml (Bld) [Volume fraction]37.1 %Low 38.8-50.0[facility]ier HospitalComment on above:Performed By: #### PTT, PT #### [place] [address] USAHemoglobin [Mass/volume] in BloodOrdered By: Nas Pruett on 77-37-8666Vlpacehutb (Bld) [Mass/Vol]12.2 g/dLLow13.0-17.0[facility]ier HospitalComment on above:Performed By: #### PTT, PT #### [place] [address] USALeukocytes [#/volume] corrected for nucleated erythrocytes in Blood by Automated counOrdered By: Nas Pruett on 98-32-2960VOQ corrected for nucl RBC Auto (Bld) [#/Vol]8.8 10*3/uL4.1-10.5FProMedica Toledo Hospital Leukocytes [#/volume] in Blood by Automated countOrdered By: Nas Pruett on 95-56-2460SFZ (Bld) [#/Vol]8.8 10*3/uLNormal4.1-10.5FProMedica Toledo HospitalComment on above:Performed By: #### PTT, PT #### [place] [address] USALymphocytes [#/volume] in Blood by Automated countOrdered By: Nas Pruett on 33-44-4947Qqmnnkotlyy (Bld) [#/Vol]1.4 10*3/uLNormal1.00-4.8 [facility] HospitalComment on above:Performed By: #### PTT, PT #### [facility] [address] [place] [address] USALymphocytes/100 leukocytes in Blood by Automated count Ordered By: Nas Pruett on 42-19-7221Ijhgjplqiqj/100 WBC (Bld)15.6 %Normal. [facility] HospitalComment on above:Performed By: #### PTT, PT #### [facility] [address]H [Entitic mass] by Automated countOrdered By: Nas Pruett on 37-43-4171EYG (RBC) [Entitic mass]28.1 hsLgglmm16.5-35.2FProMedica Toledo HospitalComment on above:Performed By: #### PTT, PT #### [address] Auto (RBC) [Mass/Vol]Ordered By: Nas Pruett on 11-42-5130THCD (RBC) [Mass/Vol]32.9 g/dL32.5-35.6FProMedica Toledo HospitalMCV [Entitic volume] by Automated countOrdered By: Nas Pruett on 01-21-2024 MCV (RBC) [Entitic vol]85.6 rZPrhscp97.5-101[facility] Comment on above:Performed By: #### PTT, PT #### [place] [address] USANeutrophils [#/volume] in Blood by Automated countOrdered By: Nas Pruett on 36-80-3686Fsvptfxqkkz (Bld) [#/Vol]5.7 10*3/uLNormal1.8-7.7 [facility] HospitalComment on above:Performed By: #### PTT, PT #### [place] [address] USANo Panel InformationOrdered By: Nas Pruett on 01-21-2024 Estimated GFR (CKD-EPI)43.613 mL/MinFirelands Regional Medical CenterPharmacy Creatinine Clearance (Chem46.56[facility]ier HospitalNucleated erythrocytes [Presence] in Blood by Automated countOrdered By: Nas Pruett on 27-36-0869Ikwuudwkx RBC Auto Ql (Bld)0.1 /100{WBC}0-0.5FProMedica Toledo HospitalPlatelet mean volume [Entitic volume] in Blood by Automated count Ordered By: Nas Pruett on 94-03-4362Hvbvtsxl mean volume (Bld) [Entitic vol]8.4 fLNormal6.6-10.1FProMedica Toledo HospitalComment on above:Performed By: #### PTT, PT #### [facility] [address] [place] [address] USAPlatelets [#/volume] in Blood by Automated countOrdered By: Nas Pruett on 26-66-0992Kvcnomkil (Bld) [#/Vol]221 10*3/dWHzsvdv518-709 [facility] HospitalComment on above:Performed By: #### PTT, PT #### [facility] [address] [place] [address] USAPotassium [Moles/volume] in Serum or PlasmaOrdered By: Nas Pruett on 05-92-0344Berqoclpz [Moles/Vol]3.9 mmol/LNormal3.5-5.1FProMedica Toledo HospitalComment on above:Performed By: #### PTT, PT #### [facility] [address] [place] [address] USASerum or plasma anion gap determinationOrdered By: Nas Pruett on 56-12-6202Ywsxe gap [Moles/Vol]13.8 mmol/LNormal6.0-15.0[facility] HospitalComment on above:Performed By: #### PTT, PT #### [facility] [address] [place] [address] USASodium [Moles/volume] in Serum or PlasmaOrdered By: Nas Pruett on 27-84-8981Gvammn [Moles/Vol]137 mmol/XCfdecm907-483WvbotjlzqParkview Health Montpelier HospitalComment on above:Performed By: #### PTT, PT #### [place] [address] USAUrea nitrogen [Mass/volume] in Serum or PlasmaOrdered By: Nas Pruett on 23-56-7868Filx nitrogen [Mass/Vol]35 mg/dLHigh7-25[facility] HospitalComment on above:Performed By: #### PTT, PT #### [place] [address] USABasic Metabolic Panelon 50-52-8121Seopp gap [Moles/Vol] 12.0 mmol/LNormal6.0-15.0The [facility] Physician GroupComment on above:Performed By: #### ADDONUAPLUS, CUU #### [place] [address] USACalcium [Mass/Vol]8.4 mg/dLLow8.6-10.3The [facility] Physician GroupComment on above:Performed By: #### ADDONUAPLUS, CUU #### [place] [address] USAChloride [Moles/Vol]107 mmol/AHoehch34-452Mha [facility] Physician [facility] Health BiloxiComment on above:Performed By: #### ADDONUAPLUS, CUU #### [place] [address] USACO2 [Moles/Vol]19.5 mmol/LLow21.0-31.0The [facility] Physician GroupComment on above:Performed By: #### ADDONUAPLUS, CUU #### [place] [address] USACreatinine [Mass/Vol]1.50 mg/dLHigh0.70-1.30The [facility] Physician GroupComment on above:Performed By: #### ADDONUAPLUS, CUU #### [place] [address] USACreatinine Clr Calc Zkaxilrn91.40NormalThe [facility] Physician GroupComment on above:Result Comment: PERFORMED BY: [place] [address] PATHOLOGIST FLEET SALESPERSON OREN OWEN M.D.Performed By: #### BLAKE, CUU #### [place] [address] USAGFR/1.73 sq M.predicted MDRD (S/P/Bld) [Vol rate/Area] 46.772 mL/min/{1.73_m2}NormalThe [facility] Physician GroupComment on above: Performed By: #### BLAKE, CUU #### [place] [address] USAGlucose [Mass/Vol]136 mg/iZBybe34-560Ipt [facility] Physician GroupComment on above:Result Comment: Random Glucose Reference Range is dependent on time and content of last meal. Glucose of more than 200 mg/dL in a nonstressed, ambulatory subject supports the diagnosis of Diabetes Mellitus. ADA recommended reference rangePerformed By: #### BLAKE, CUU #### [place] [address] USAPotassium [Moles/Vol]3.5 mmol/LNormal3.5-5.1The [facility] Physician GroupComment on above:Performed By: #### BLAKE, CUU #### [place] [address] USASodium [Moles/Vol]135 mmol/CYpr155-290Ptx [facility] Physician GroupComment on above:Performed By: #### BLAKE, CUU #### [place] [address] USAUrea nitrogen [Mass/Vol]32 mg/dLHigh7-25The [facility] Physician GroupComment on above:Performed By: #### BLAKE, CUU #### [place] [address] USAComplete Blood Count Auto Diffon 23-95-7842Sfwcbynxw (Bld) [#/Vol]0.0 10*3/uLNormal0.0-0.2The [facility] Physician GroupComment on above: Result Comment: PERFORMED BY: [place] [address] PATHOLOGIST FLEET SALESPERSON OREN OWEN M.D.Performed By: #### BLAKE, CUU #### [place] [address] USABasophils/100 WBC (Bld)0.3 %Normal.The [facility] Physician GroupComment on above:Performed By: #### BLAKE, CUU #### [place] [address] USAEosinophils (Bld) [#/Vol]0.2 10*3/uLNormal0.0-0.45The [facility] Physician GroupComment on above:Performed By: #### BLAKE, CUU #### [place] [address] USAEosinophils/100 WBC (Bld)1.7 %Normal.The [facility] Physician GroupComment on above:Performed By: #### BLAKE, CUU #### [place] [address] USAErythrocyte distribution width (RBC) [Ratio]15.4 %High 12.0-14.8The [facility] Physician GroupComment on above:Performed By: #### BLAKE, CUU #### [place] [address] USAHematocrit (Bld) [Volume fraction]37.6 %Low38.8-50.0The [facility] Physician GroupComment on above:Performed By: #### BLAKE, CUU #### [place] [address] USAHemoglobin (Bld) [Mass/Vol]12.5 g/dLLow13.0-17.0The [facility] Physician GroupComment on above:Performed By: #### BLAKE, CUU #### [place] [address] USALymphocytes (Bld) [#/Vol]1.1 10*3/uLNormal1.00-4.8The [facility] Physician GroupComment on above:Performed By: #### BLAKE, CUU #### [place] [address] USALymphocytes/100 WBC (Bld)11.8 %Normal.The [facility] Physician GroupComment on above:Performed By: #### ADDONUAPLUS, CUU #### [address] (RBC) [Entitic mass]28.5 xdEtvlcc88.5-35.2The [facility] Physician GroupComment on above:Performed By: #### ADDONUAPLUS, CUU #### [place] [address] USAV (RBC) [Entitic vol]85.9 uWYhpryc18.5-101The [facility] Physician GroupComment on above:Performed By: #### ADDONUAPLUS, CUU #### [place] [address] USAMean Corpuscular HGB Conc33.2 g/oJCzfrtr18.5-35.6The [facility] Physician GroupComment on above:Performed By: #### ADDONUAPLUS, CUU #### [place] [address] USAMonocytes (Bld) [#/Vol]1.4 10*3/uLHigh0.0-0.8The [facility] Physician GroupComment on above:Performed By: #### ADDONUAPLUS, CUU #### [place] [address] USAMonocytes/100 WBC (Bld)14.3 %Normal.The [facility] Physician GroupComment on above:Performed By: #### ADDONUAPLUS, CUU #### [place] [address] USANeutrophils (Bld) [#/Vol]6.8 10*3/uLNormal1.8-7.7The [facility] Physician GroupComment on above:Performed By: #### ADDONUAPLUS, CUU #### [place] [address] USANeutrophils/100 WBC (Bld)71.9 %Normal.The [facility] Physician GroupComment on above:Performed By: #### BLAKE CUU #### [facility] [address] [place] [address] USANRBC%0.0 /100{WBC}Normal0-0.5The [facility] Comment on above:Performed By: #### BLAKE CUU #### [place] [address] USAPlatelet mean volume (Bld) [Entitic vol]8.3 fLNormal 6.6-10.1The [facility] Physician GroupComment on above:Performed By: #### BLAKE CUU #### [place] [address] USAPlatelets (Bld) [#/Vol]202 10*3/dYXtvrmx574-261Xbj [facility] Physician GroupComment on above:Performed By: #### BLAKE CUU #### [place] [address] USARBC (Bld) [#/Vol]4.38 10*6/uLNormal3.90-5.60The [facility] Physician GroupComment on above:Performed By: #### BLAKE, CUU #### [place] [address] USAWBC (Bld) [#/Vol]9.5 10*3/uLNormal4.1-10.5The [facility] Physician GroupComment on above:Performed By: #### BLAKE CUU #### [place] [address] USAMagnesium [Mass/volume] in Serum or PlasmaOrdered By: Isaac Edwards on 07-20-6548Gaafsezbm [Mass/Vol]2.1 mg/dLNormal1.9-2.7 [facility] HospitalComment on above:Result Comment: PERFORMED BY: [place] [address] PATHOLOGIST FLEET SALESPERSON OREN OWEN M.D.Performed By: #### JHONNY LOZANO #### [place] [address] USABasic Metabolic Panelon 50-35-7802Hqntr gap [Moles/Vol] 11.7 mmol/LNormal6.0-15.0The [facility] Physician GroupComment on above:Performed By: #### [facility] #### [place] [address] USACalcium [Mass/Vol]8.5 mg/dLLow8.6-10.3The [facility] Physician GroupComment on above:Performed By: #### [facility] #### [place] [address] USAChloride [Moles/Vol]106 mmol/SDugugs49-463Pmx [facility] Physician GroupComment on above:Performed By: #### [facility] TO [facility] #### [place] [address] USACO2 [Moles/Vol]19.9 mmol/LLow21.0-31.0The [facility] Physician GroupComment on above:Performed By: #### [facility] #### [place] [address] USACreatinine [Mass/Vol]1.62 mg/dLHigh0.70-1.30The [facility] Physician GroupComment on above:Performed By: #### [facility] #### [place] [address] USACreatinine Clr Calc Ikhghrja36.28NormalThe [facility] Physician GroupComment on above:Result Comment: PERFORMED BY: [place] [address] PATHOLOGIST FLEET SALESPERSON OREN OWEN M.D.Performed By: #### [facility] #### [place] [address] USAGFR/1.73 sq M.predicted MDRD (S/P/Bld) [Vol rate/Area] 42.646 mL/min/{1.73_m2}NormalThe [facility] Physician GroupComment on above: Performed By: #### [facility] #### [place] [address] USAGlucose [Mass/Vol]145 mg/jNBgww26-212Clj [facility] Physician GroupComment on above:Result Comment: Random Glucose Reference Range is dependent on time and content of last meal. Glucose of more than 200 mg/dL in a nonstressed, ambulatory subject supports the diagnosis of Diabetes Mellitus. ADA recommended reference rangePerformed By: #### [facility] #### [place] [address] USAPotassium [Moles/Vol]3.6 mmol/LNormal3.5-5.1The [facility] Physician GroupComment on above:Performed By: #### [facility] #### [place] [address] USASodium [Moles/Vol]134 mmol/TKob636-563Qxm [facility] Physician GroupComment on above:Performed By: #### [facility] #### [place] [address] USAUrea nitrogen [Mass/Vol]32 mg/dLHigh7-25The [facility] Physician GroupComment on above:Performed By: #### [facility] #### [place] [address] USAComplete Blood Count Auto Diffon 12-87-1551Uoetvvupy (Bld) [#/Vol]0.0 10*3/uLNormal0.0-0.2The [facility] Physician [facility] BiloxiComment on above: Result Comment: PERFORMED BY: [place] [address] PATHOLOGIST FLEET SALESPERSON OREN OWEN M.D.Performed By: #### ADDONUAMAISHA CASTILLOU #### [place] [address] USABasophils/100 WBC (Bld)0.4 %Normal.The [facility] Physician GroupComment on above:Performed By: #### BLAKE, CUU #### [place] [address] USAEosinophils (Bld) [#/Vol]0.0 10*3/uLNormal0.0-0.45The [facility] Physician GroupComment on above:Performed By: #### BLAKE CUU #### [place] [address] USAEosinophils/100 WBC (Bld)0.4 %Normal.The [facility] Physician GroupComment on above:Performed By: #### BLAKE CUU #### [place] [address] USAErythrocyte distribution width (RBC) [Ratio]15.6 %High 12.0-14.8The [facility] Physician GroupComment on above:Performed By: #### BLAKE CUU #### [place] [address] USAHematocrit (Bld) [Volume fraction]37.1 %Low38.8-50.0The [facility] Physician GroupComment on above:Performed By: #### BLAKE CUU #### [place] [address] USAHemoglobin (Bld) [Mass/Vol]12.3 g/dLLow13.0-17.0The [facility] Physician GroupComment on above:Performed By: #### BLAKE CUU #### [place] [address] USALymphocytes (Bld) [#/Vol]1.0 10*3/uLNormal1.00-4.8The [facility] Physician GroupComment on above:Performed By: #### BLAKE, CUU #### [place] [address] USALymphocytes/100 WBC (Bld)8.8 %Normal.The [facility] Physician GroupComment on above:Performed By: #### BLAKE, CUU #### [facility] [address] (RBC) [Entitic mass]28.6 fyApxycp91.5-35.2The [facility] Physician GroupComment on above:Performed By: #### JESUSPLUS, CUU #### [address] (RBC) [Entitic vol]86.5 rVCkookt65.5-101The [facility] Physician GroupComment on above:Performed By: #### ADDONUAPLUS, CUU #### [place] [address] USAMean Corpuscular HGB Conc33.0 g/fMUpewku41.5-35.6The [facility] Physician GroupComment on above:Performed By: #### ADDONRALFPLUS, CUU #### [place] [address] USAMonocytes (Bld) [#/Vol]1.3 10*3/uLHigh0.0-0.8The [facility] Physician GroupComment on above:Performed By: #### OCTAVIOONJOHN, CUU #### [place] [address] USAMonocytes/100 WBC (Bld)11.9 %Normal.The [facility] Physician GroupComment on above:Performed By: #### JESUSPLUS, CUU #### [place] [address] USANeutrophils (Bld) [#/Vol]8.6 10*3/uLHigh1.8-7.7The [facility] Physician GroupComment on above:Performed By: #### ADDONUAPLUS, CUU #### [place] [address] USANeutrophils/100 WBC (Bld)78.5 %Normal.The [facility] Physician GroupComment on above:Performed By: #### ADDONUAPLUS, CUU #### [place] [address] USANRBC%0.1 /100{WBC}Normal0-0.5The [facility] Comment on above:Performed By: #### BLAKE CUU #### [facility] [address] [place] [address] USAPlatelet mean volume (Bld) [Entitic vol]8.9 fLNormal 6.6-10.1The [facility] Physician GroupComment on above:Performed By: #### BLAKE CUU #### [facility] [address] [place] [address] USAPlatelets (Bld) [#/Vol]165 10*3/wWWpeizl010-766Snn [facility] Physician GroupComment on above:Performed By: #### BLAKE CUU #### [facility] [address] [place] [address] USARBC (Bld) [#/Vol]4.30 10*6/uLNormal3.90-5.60The [facility] Physician GroupComment on above:Performed By: #### BLAKE, CUU #### [facility] [address] [place] [address] USAWBC (Bld) [#/Vol]11.0 10*3/uLHigh4.1-10.5The [facility] Physician GroupComment on above:Performed By: #### BLAKE CUU #### [place] [address] USAECG 12 lead ECGon 42-78-7457AXB 12 lead ECGSUMMA HEALTH [facility] [place] [address] [place] [address] Electrocardiograph Report Signed Patient: Alex Anderson MR#: [id number] 36 : 1945 Acct:[id number] Age/Sex: 78 / M ADM Date: 01/16/24 Loc: Room: [address] [place] [address] Type: ADM IN Attending Dr: Nas Pruett [...] or before 16-Jan-2024) Inferolateral injury pattern ACUTE CT / STEMI Abnormal ECG When compared with ECG of 18-Jan-2024 07:08, No significant change was found Confirmed by Misael Campbell ([id number]) on 01/20/2024 10:18:21 PM Referred By: Electronically Signed By: Misael Campbell Transcribed By: MUS Signed By Misael Campbell MD 01/20/24 2218[facility]iBasic Metabolic Panelon [id number] gap [Moles/Vol]11.5 mmol/LNormal6.0-15.0The [facility] Physician GroupComment on above:Performed By: #### CBC, BMP #### [facility] [address] [place] [address] USACalcium [Mass/Vol]8.7 mg/dLNormal8.6-10.3The [facility] Physician GroupComment on above:Performed By: #### CBC, BMP #### [facility] [address] [place] [address] USAChloride [Moles/Vol]107 mmol/ZKxybuw42-556Emg [facility] Physician GroupComment on above:Performed By: #### CBC, BMP #### [facility] [facility] [address] [place] [address] USACO2 [Moles/Vol]21.2 mmol/WDibutv99.0-31.0The [facility] Physician GroupComment on above:Performed By: #### CBC, BMP #### [facility] [address] [place] [address] USACreatinine [Mass/Vol]1.59 mg/dLHigh0.70-1.30The [facility] Physician GroupComment on above:Performed By: #### CBC, BMP #### [facility] [address] [place] [address] USACreatinine Clr Calc Iwmeydpb75.65NormalThe [facility] Physician GroupComment on above:Result Comment: PERFORMED BY: [place] [address] PATHOLOGIST FLEET SALESPERSON OREN OWEN M.D.Performed By: #### CBC, BMP #### [place] [address] USAGFR/1.73 sq M.predicted MDRD (S/P/Bld) [Vol rate/Area] 43.613 mL/min/{1.73_m2}NormalThe [facility] Physician GroupComment on above: Performed By: #### CBC, BMP #### [place] [address] USAGlucose [Mass/Vol]125 mg/mLNoxh86-355Owk [facility] Physician GroupComment on above:Result Comment: Random Glucose Reference Range is dependent on time and content of last meal. Glucose of more than 200 mg/dL in a nonstressed, ambulatory subject supports the diagnosis of Diabetes Mellitus. ADA recommended reference rangePerformed By: #### CBC, BMP #### [place] [address] USAPotassium [Moles/Vol]3.7 mmol/LNormal3.5-5.1The [facility] Physician GroupComment on above:Performed By: #### CBC, BMP #### [place] [address] USASodium [Moles/Vol]136 mmol/VTwpfve822-033Asp [facility] Physician GroupComment on above:Performed By: #### CBC, BMP #### [place] [address] USAUrea nitrogen [Mass/Vol]29 mg/dLHigh7-25The [facility] Physician GroupComment on above:Performed By: #### CBC, BMP #### [place] [address] USAComplete Blood Count Auto Diffon 53-31-4645Gqotixgjx (Bld) [#/Vol]0.0 10*3/uLNormal0.0-0.2The [facility] Physician GroupComment on above: Result Comment: PERFORMED BY: [place] [address] PATHOLOGIST FLEET SALESPERSON OREN OWEN M.D.Performed By: #### CBC, BMP #### [place] [address] USABasophils/100 WBC (Bld)0.4 %Normal.The [facility] Physician GroupComment on above:Performed By: #### CBC, BMP #### [place] [address] USAEosinophils (Bld) [#/Vol]0.0 10*3/uLNormal0.0-0.45The [facility] Physician GroupComment on above:Performed By: #### CBC, BMP #### [place] [address] USAEosinophils/100 WBC (Bld)0.2 %Normal.The [facility] Physician GroupComment on above:Performed By: #### CBC, BMP #### [place] [address] USAErythrocyte distribution width (RBC) [Ratio]15.9 %High 12.0-14.8The [facility] Physician GroupComment on above:Performed By: #### CBC, BMP #### [place] [address] USAHematocrit (Bld) [Volume fraction]38.2 %Low38.8-50.0The [facility] Physician GroupComment on above:Performed By: #### CBC, BMP #### [place] [address] USAHemoglobin (Bld) [Mass/Vol]12.7 g/dLLow13.0-17.0The [facility] Physician GroupComment on above:Performed By: #### CBC, BMP #### [place] [address] USALymphocytes (Bld) [#/Vol]1.4 10*3/uLNormal1.00-4.8The [facility] Physician GroupComment on above:Performed By: #### CBC, BMP #### [facility] [address] [place] [address] USALymphocytes/100 WBC (Bld)11.5 %Normal.The [facility] Physician GroupComment on above:Performed By: #### CBC, BMP #### [facility] [address] [place] [address] USAH (RBC) [Entitic mass]28.5 yoWciuzv24.5-35.2The [facility] Physician GroupComment on above:Performed By: #### CBC, BMP #### [facility] [address] [place] [address] USAMCV (RBC) [Entitic vol]85.4 tPRhylyz59.5-101The [facility] Physician GroupComment on above:Performed By: #### CBC, BMP #### [facility] [address] [place] [address] USAMean Corpuscular HGB Conc33.4 g/kMIdfpeq46.5-35.6The [facility] Physician GroupComment on above:Performed By: #### CBC, BMP #### [place] [address] USAMonocytes (Bld) [#/Vol]1.5 10*3/uLHigh0.0-0.8The [facility] Physician GroupComment on above:Performed By: #### CBC, BMP #### [facility] [address] [place] [address] USAMonocytes/100 WBC (Bld)12.8 %Normal.The [facility] Physician GroupComment on above:Performed By: #### CBC, BMP #### [facility] [address] [place] [address] USANeutrophils (Bld) [#/Vol]9.1 10*3/uLHigh1.8-7.7The [facility] Physician GroupComment on above:Performed By: #### CBC, BMP #### [place] [address] USANeutrophils/100 WBC (Bld)75.1 %Normal.The [facility] Physician GroupComment on above:Performed By: #### CBC, BMP #### [facility] [address] [place] [address] USANRBC%0.0 /100{WBC}Normal0-0.5The [facility] Comment on above:Performed By: #### CBC, BMP #### [facility] [address] [place] [address] USAPlatelet mean volume (Bld) [Entitic vol]9.3 fLNormal 6.6-10.1The [facility] Physician GroupComment on above:Performed By: #### CBC, BMP #### [facility] [address] [place] [address] USAPlatelets (Bld) [#/Vol]131 10*3/mZMxc597-403Dvs [facility] Physician GroupComment on above:Performed By: #### CBC, BMP #### [facility] [address] [place] [address] USARBC (Bld) [#/Vol]4.47 10*6/uLNormal3.90-5.60The [facility] Physician GroupComment on above:Performed By: #### CBC, BMP #### [facility] [address] [place] [address] USAWBC (Bld) [#/Vol]12.1 10*3/uLHigh4.1-10.5The [facility] Physician GroupComment on above:Performed By: #### CBC, BMP #### [place] [address] USAECG 12 lead ECGon 11-14-2803DAQ 12 lead ECGSUMMA HEALTH Main [place] [address] [place] [address] Electrocardiograph Report Signed Patient: Alex Anderson MR#: [id number] 36 : 1945 Acct:[id number] Age/Sex: 78 / M ADM Date: 01/16/24 Loc: Room: [address] [place] [address] Type: ADM IN Attending Dr: Nas Pruett [...] Signed By Ana Castro MD 0 01/18/24 1102[facility] Phys[facility] BiloxiBasic Metabolic Panelon 84-64-9990Uvhut gap [Moles/Vol]12.3 mmol/LNormal6.0-15.0The [facility] Physician GroupComment on above:Performed By: #### BLAKE, CUU #### [facility] [address] [place] [address] USACalcium [Mass/Vol]8.9 mg/dLNormal8.6-10.3The [facility] Physician GroupComment on above:Performed By: #### BLAKE, CUU #### [facility] [address] [place] [address] USAChloride [Moles/Vol]105 mmol/RSftwme18-100Gno [facility] Physician GroupComment on above:Performed By: #### BLAKE, CUU #### [facility] [address] [place] [address] USACO2 [Moles/Vol]22.2 mmol/HNnjmqo98.0-31.0The [facility] Physician GroupComment on above:Performed By: #### BLAKE, CUU #### [facility] [address] [place] [id number] USACreatinine [Mass/Vol]1.70 mg/dLHigh0.70-1.30The [facility] Physician GroupComment on above:Performed By: #### BLAKE, CUU #### [facility] [address] [place] [address] USACreatinine Clr Calc Ojhkxmft83.35NormalThe [facility] Physician GroupComment on above:Performed By: #### BLAKE, CUU #### [facility] [address] [place] [address] USAGFR/1.73 sq M.predicted MDRD (S/P/Bld) [Vol rate/Area] 40.249 mL/min/{1.73_m2}NormalThe [facility] Physician GroupComment on above: Performed By: #### BLAKE CUU #### [facility] [address] [place] [address] USAGlucose [Mass/Vol]115 mg/yDCyqz35-881Opc [facility] Physician GroupComment on above:Result Comment: Random Glucose Reference Range is dependent on time and content of last meal. Glucose of more than 200 mg/dL in a nonstressed, ambulatory subject supports the diagnosis of Diabetes Mellitus. ADA recommended reference rangePerformed By: #### BLAKE CUU #### [facility] [address] [place] [address] USAPotassium [Moles/Vol]4.5 mmol/LNormal3.5-5.1The [facility] Physician GroupComment on above:Performed By: #### BLAKE CUU #### [facility] [address] [place] [address] USASodium [Moles/Vol]135 mmol/TAdr261-870Bnv [facility] Physician GroupComment on above:Performed By: #### BLAKE, CUU #### [facility] [address] [place] [address] USAUrea nitrogen [Mass/Vol]26 mg/dLHigh7-25The [facility] Physician GroupComment on above:Performed By: #### BLAKE, CUU #### [facility] [address] [place] [address] USACapillary blood glucose measurement by glucometer (mass/volume)Ordered By: Nas Pruett on 74-61-5270Dsndnme [Mass/Vol]126 mg/dL NormalParkview Health Montpelier HospitalComment on above:Random Glucose Reference Range is [...] the diagnosis of Diabetes Mellitus. PERFORMED BY: [place] [address] PATHOLOGIST FLEET SALESPERSON OREN OWEN M.D.Performed By: #### BLAKE, CUU #### [place] [id number] USACholesterol [Mass/volume] in Serum or PlasmaOrdered By: Nas Pruett on 63-79-3318Zgmuqwplcxa [Mass/Vol]74 mg/iBJnn627-853GwglmtfaxParkview Health Montpelier HospitalComment on above:Chol less than 200 mg/dl low riskChol 201-239 mg/dl borderline riskChol 240 mg/dl and greater high riskResult Comment: Chol less than 200 mg/dl low risk Chol 201-239 mg/dl borderline risk Chol 240 mg/dl and greater high riskPerformed By: #### BLAKE, CUU #### [place] [id number] USACholesterol in LDL Calc [Mass/Vol]Ordered By: Nas Pruett on 41-93-2276Cofslvidoyf in LDL [Mass/Vol]28 mg/dL0-100Park[facility] Montpelier HospitalComment on above:LDL ATP III CLASSIFICATIONLDL less than 100 mg/dL OptimalLDL 100-129 mg/dL Near or above gtzshsuUYA579-498 mg/dL Borderline highLDL 160-189 mg/dL HighLDL greater than 189 mg/dL Very highCholesterol in VLDL Calc [Mass/Vol]Ordered By: Nas Pruett on 55-68-1825Vzxpmfcpryw in VLDL [Mass/Vol]13 mg/dLParkview Health Montpelier HospitalDipstick and Microscopicon 77-83-8251Majlywehdu (U)CloudyCritically abnormalClearThe [facility] Physician GroupComment on above:Order Comment: Name Collection Type:: Zapien Catheter Performed By: #### ADDONUAPLUS, CUU #### [facility] [address] [place] [address] USABacteria,Urine2+HighNone SeenEd [facility] Physician Group Comment on above:Order Comment: Name Collection Type:: Zapien CatheterPerformed By: #### ADDONUAPLUS, CUU #### [address] [address] USABilirubin,UrineNegativeNormalNegativeEd [facility] Physician GroupComment on above:Order Comment: Name Collection Type:: Zapien CatheterPerformed By: #### ADDONUAPLUS, CUU #### [facility] [address] [place] [address] USAColor (U)Light-YellowNormalYellowEd [facility] Physician GroupComment on above:Order Comment: Name Collection Type:: Zapien Catheter Performed By: #### ADDONUAPLUS, CUU #### [facility] [address] [place] [address] USAGlucose Ql (U)NormalNormalNormalThSt. Luke's [facility] Physician GroupComment on above:Order Comment: Name Collection Type:: Zapien Catheter Performed By: #### ADDONUAPLUS, CUU #### [facility] [address] [place] [address] USAHyaline Casts,UrineNoneNormal0-8The [facility] Physician GroupComment on above:Order Comment: Name Collection Type:: Zapien Catheter Performed By: #### ADDONUAPLUS, CUU #### [facility] [address] [place] [address] USAKetones Ql (U)NegativeNormalNegativeEd [facility] Physician GroupComment on above:Order Comment: Name Collection Type:: Zapien CatheterPerformed By: #### ADDONUAPLUS, CUU #### [facility] [address] [place] [address] USALeukocyte esterase Test strip Ql (U)3+HighNegativeEd [facility] Physician GroupComment on above:Order Comment: Name Collection Type:: Zapien CatheterPerformed By: #### ADDONUAPLUS, CUU #### [place] [address] USAMucus,UrineRareNormalThe [facility] Physician GroupComment on above:Order Comment: Name Collection Type:: Zapien CatheterResult Comment: PERFORMED BY: [place] [address] PATHOLOGIST FLEET SALESPERSON OREN OWEN M.D.Performed By: #### BLAKE, CUU #### [place] [address] USANitrite,UrineNegativeNormalNegativeThe [facility] Physician GroupComment on above:Order Comment: Name Collection Type:: Zapien Catheter Performed By: #### ADDZACPLUS, CUU #### [place] [address] USAOccult Blood,UrineTraceHighNegativeThe [facility] Physician GroupComment on above:Order Comment: Name Collection Type:: Zapien Catheter Result Comment: PERFORMED BY: [place] [address] PATHOLOGIST FLEET SALESPERSON OREN OWEN M.D.Performed By: #### BLAKE, CUU #### [place] [address] USApH (U)6.0 [pH]Normal5.0-9.0The [facility] Comment on above:Order Comment: Name Collection Type:: Zapien CatheterPerformed By: #### ADDONUAPLUS, CUU #### [place] [address] USAProtein,UrineTraceHighNegativeThe [facility] Physician GroupComment on above:Order Comment: Name Collection Type:: Zapien Catheter Performed By: #### ADDONUAPLUS, CUU #### [place] [address] USARBC,Idbsp3-6Orzuwa6-9Iyw [facility] Physician GroupComment on above:Order Comment: Name Collection Type:: Zapien CatheterPerformed By: #### ADDONUAPLUS, CUU #### [facility] [address] [place] [address] USASpecificy [place],Urine1.519Ycyxxm1.001-1.030The [facility] Physician GroupComment on above:Order Comment: Name Collection Type:: Zapien CatheterPerformed By: #### ADDONUAPLUS, CUU #### [facility] [address] [place] [address] USASquamous Epithelial Cell,Uvwim6-4Cmdpxr8-5Mmn [facility] Physician GroupComment on above:Order Comment: Name Collection Type:: Zapien CatheterPerformed By: #### ADDONUAPLUS, CUU #### [place] [address] USAUrobilinogen,UrineNormalNormalNormalThe [facility] Physician GroupComment on above:Order Comment: Name Collection Type:: Zapien CatheterPerformed By: #### ADDONUAPLUS, CUU #### [place] [address] USAWBC,Xtbus46-35Ejrf4-5Jqs [facility] Physician GroupComment on above:Order Comment: Name Collection Type:: Zapien CatheterPerformed By: #### ADDONUAPLUS, CUU #### [place] [address] USAECG 12 lead ECGon 39-87-1102DVF 12 lead [facility] Main [place] [address] [place] [address] Electrocardiograph Report Signed Patient: Alex Anderson MR#: [id number] 36 : 1945 Acct:[id number] Age/Sex: 78 / M ADM Date: 01/16/24 Loc: Room: [address] [place] [address] Type: ADM IN Attending Dr: Nas Pruett [...] or before 16-Jan-2024) Inferior injury pattern ACUTE CT / STEMI Abnormal ECG When compared with ECG of 16-Jan-2024 19:53, (Unconfirmed) Serial changes of evolving Septal infarct present Confirmed by ANA CASTRO MD ([id number]) on 01/17/2024 9:52:42 AM Referred By: Electronically Signed By: ANA CASTRO MD Transcribed By: MUS Signed By Ana Castro MD 0 01/17/[address] [place] [address] Physician GroupECH echo transthoracicon 46-59-1495SFX echo transthoracicSUMMA HEALTH Main [place] [address] [place] [address] Echocardiogram Signed Patient: Alex Anderson MR#: [id number] 36 : 1945 Acct:[id number] Age/Sex: 78 / M ADM Date: 01/16/24 Loc: Room: [address] [place] [address] Type: ADM IN Attending Dr: Nas Pruett DO Ordering Provider: Nas Pruett DO Date of Service: 01/17/24 E[facility] echo transthoracic: Ant STEMI Copies to: MD [...] 1045 Signed By: Ana Castro MD 01/17/24 1150[facility] Physician GroupGlucose Poct Glucometerson 91-17-7055Tqqpjld [Mass/Vol]115 mg/dLPerham Health HospitalComment on above:Result Comment: Random Glucose Reference Range is dependent on time and content of last meal. Glucose of more than 200 mg/dL in a nonstressed, ambulatory subject supports the diagnosis of Diabetes Mellitus. PERFORMED BY: [place] [address] PATHOLOGIST FLEET SALESPERSON OREN OWEN M.D.Performed By: #### PTT, PT #### [place] [address] USAGlucose [Mass/Vol]114 mg/dLNormAdventHealth Wesley Chapel Physician GroupComment on above:Result Comment: Random Glucose Reference Range is dependent on time and content of last meal. Glucose of more than 200 mg/dL in a nonstressed, ambulatory subject supports the diagnosis of Diabetes Mellitus. PERFORMED BY: [place] [address] PATHOLOGIST FLEET SALESPERSON OREN OWEN M.D.Performed By: #### ADDAYSHA, CUU #### [place] [address] USAGlucose [Mass/Vol]125 mg/dLNormAdventHealth Wesley Chapel Physician GroupComment on above:Result Comment: Random Glucose Reference Range is dependent on time and content of last meal. Glucose of more than 200 mg/dL in a nonstressed, ambulatory subject supports the diagnosis of Diabetes Mellitus. PERFORMED BY: [place] [address] PATHOLOGIST FLEET SALESPERSON OREN OWEN M.D.Performed By: #### PTT, PT #### [place] [id number] USALipid Panelon 52-42-6533STK Cholesterol,Djgvjytrca62 mg/dL Normal0-100The [facility] Physician GroupComment on above:Result Comment: LDL ATP III CLASSIFICATION LDL less than 100 mg/dL Optimal LDL 100-129 mg/dL Near or above optimal LDL 130-159 mg/dL Borderline high LDL 160-189 mg/dL High LDL greater than 189 mg/dL Very highPerformed By: #### ADDONUAPLUS, CUU #### [place] [address] USATriglyceride w/Ejjgvk09 mg/dLNormal0-149The [facility] Physician GroupComment on above:Result Comment: TRIG ATP III CLASSIFICATION TRIG less than 150 mg/dL Normal TRIG 150-199 mg/dL Borderline high TRIG 200-500 mg/dL High TRIG greater than 500 mg/dL Very high Standard traceable to the Center for Disease Conrtrol and Prevention (CDC) test method.Performed By: #### JESUSPLUS, CUU #### [facility] [address] [place] [address] USAVLDL CFVLOWOEDCP45 mg/dLNormalThe [facility] Physician GroupComment on above:Performed By: #### JESUSPLUS, CUU #### [facility] [address] [place] [address] USAPlatelet adequacy [Presence] in Blood by Light microscopy Ordered By: Nas Pruett on 96-87-7681Qratpxydy LM Ql (Bld)DecreasedGuernsey Memorial HospitalPlatelet morphology finding [Identifier] in BloodOrdered By: Nas Pruett on 42-15-5430Rahydvoh morphology finding Nom (Bld)NormalNormal [facility]pelier HospitalRBC morphologyOrdered By: Nas Pruett on 86-81-3456LPM morphology finding Nom (Bld)N/[facility] Scan and CBCon 07-77-7065Wazbgydfc (Bld) [#/Vol]0.1 10*3/uLNormal0.0-0.2The [facility] Physician [facility] Health BiloxiComment on above:Result Comment: PERFORMED BY: [place] [address] PATHOLOGIST FLEET SALESPERSON OREN OWEN M.D.Performed By: #### JESUSPLUS, CUU #### [facility] [address] [place] [id number] USABasophils/100 WBC (Bld)0.4 %Normal.The [facility] Physician GroupComment on above:Performed By: #### BLAKE, CUU #### [facility] [address] [place] [id number] USAEosinophils (Bld) [#/Vol]0.0 10*3/uLNormal0.0-0.45The [facility] Physician GroupComment on above:Performed By: #### ADDONUAPLUS, CUU #### [place] [address] USAEosinophils/100 WBC (Bld)0.0 %Normal.The [facility] Physician GroupComment on above:Performed By: #### BLAKE, CUU #### [place] [address] USAErythrocyte distribution width (RBC) [Ratio]15.8 %High 12.0-14.8The [facility] Physician GroupComment on above:Performed By: #### BLAKE, CUU #### [place] [address] USAHematocrit (Bld) [Volume fraction]38.4 %Low38.8-50.0The [facility] Physician GroupComment on above:Performed By: #### BLAKE CUU #### [place] [address] USAHemoglobin (Bld) [Mass/Vol]12.7 g/dLLow13.0-17.0The [facility] Physician GroupComment on above:Performed By: #### BLAKE CUU #### [place] [address] USALymphocytes (Bld) [#/Vol]1.2 10*3/uLNormal1.00-4.8The [facility] Physician GroupComment on above:Performed By: #### BLAKE, CUU #### [place] [address] USALymphocytes/100 WBC (Bld)6.9 %Normal.The [facility] Physician GroupComment on above:Performed By: #### BLAKE, CUU #### [place] [address] USAMCH (RBC) [Entitic mass]28.4 jlIxgtbm53.5-35.2The [facility] Physician GroupComment on above:Performed By: #### BLAKE, CUU #### [facility] [address] [place] [address] USAMCV (RBC) [Entitic vol]86.1 yDDjjkgz32.5-101The [facility] Physician GroupComment on above:Performed By: #### BLAKE, CUU #### [facility] [address] [place] [address] USAMean Corpuscular HGB Conc33.0 g/iBTmuflf33.5-35.6The [facility] Physician GroupComment on above:Performed By: #### BLAKE, CUU #### [facility] [address] [place] [address] USAMonocytes (Bld) [#/Vol]2.8 10*3/uLHigh0.0-0.8The [facility] Physician GroupComment on above:Performed By: #### BLAKE, CUU #### [place] [address] USAMonocytes/100 WBC (Bld)15.6 %Normal.The [facility] Physician GroupComment on above:Performed By: #### BLAKE, CUU #### [place] [address] USANeutrophils (Bld) [#/Vol]13.6 10*3/uLHigh1.8-7.7The [facility] Physician GroupComment on above:Performed By: #### BLAKE, CUU #### [place] [address] USANeutrophils/100 WBC (Bld)77.1 %Normal.The [facility] Physician GroupComment on above:Performed By: #### BLAKE, CUU #### [place] [address] USANRBC%0.0 /100{WBC}Normal0-0.5The [facility] Comment on above:Performed By: #### JESUSPLUS, CUU #### [place] [address] USAPlatelet EstimateDecreasedNormalNormalThe [facility] Physician GroupComment on above:Performed By: #### ADDONUAPLUS, CUU #### [place] [address] USAPlatelet mean volume (Bld) [Entitic vol]9.0 fLNormal 6.6-10.1The [facility] Physician GroupComment on above:Performed By: #### ADDONUAPLUS, CUU #### [place] [address] USAPlatelet MorphologyNormalNormAdventHealth North Pinellas Physician GroupComment on above:Result Comment: PERFORMED BY: [place] [address] PATHOLOGIST FLEET SALESPERSON OREN OWEN M.D.Performed By: #### ADDZACPLUS, CUU #### [place] [address] USAPlatelets (Bld) [#/Vol]135 10*3/zJNzd292-613Kxh [facility] Physician GroupComment on above:Performed By: #### ADDONUAPLUS, CUU #### [place] [address] USARBC (Bld) [#/Vol]4.46 10*6/uLNormal3.90-5.60The [facility] Physician GroupComment on above:Performed By: #### ADDONUAPLUS, CUU #### [place] [address] USAWBC (Bld) [#/Vol]17.7 10*3/uLHigh4.1-10.5The [facility] Physician GroupComment on above:Performed By: #### ADDONUAPLUS, CUU #### [place] [address] USASerum or plasma high density lipoprotein (HDL) cholesterol measurementOrdered By: Nas Pruett on 73-60-1450Odlaqbtwzjx in HDL [Mass/Vol]33 mg/tDZflzyp35-83TruzhwznbParkview Health Montpelier HospitalComment on above:HDL CHOL ATP- III CLASSIFICATION Cardiovascular RiskHDL > or equal to 60 mg/dL LOWHDL < 40 mg/dL HIGHResult Comment: HDL CHOL ATP-III CLASSIFICATION Cardiovascular Risk HDL > or equal to 60 mg/dL LOW HDL < 40 mg/dL HIGHPerformed By: #### MAISHA LOZANOU #### [address] [address] USASerum or plasma total cholesterol/high density lipoprotein (HDL) cholesterol mass ratOrdered By: Nas Pruett on 01-17-2024 Cholesterol.total/Cholesterol in HDL [Mass ratio]2.2 {ratio}Normal<5.0Park[facility] Montpelier HospitalComment on above:Result Comment: PERFORMED BY: [place] [address] PATHOLOGIST FLEET SALESPERSON OREN OWEN M.D.Performed By: #### BLAKE, CUU #### [address] [address] USATriglyceride [Mass/volume] in Serum or PlasmaOrdered By: Nas Pruett on 89-31-8861Wvdgotcfbfto [Mass/Vol]67 mg/dL0-149[facility]ier HospitalComment on above:TRIG ATP III CLASSIFICATIONTRIG less than 150 mg/dL NormalTRIG 150-199 mg/dL Borderline highTRIG 200-500 mg/dL High TRIG greater than 500 mg/dL Very highStandard traceable to the Center for Disease Co nrtrol and Prevention (CDC) test method.Troponin I High Sensitivityon 01-17-2024 Troponin I High Pgvdalmvtvp98641.6 pg/mLOff scale high0.0-20.0[facility] Physician GroupComment on above:Result Comment: Critical Result I_TnIHS_d:22053.6 Called to and read back by: WU MCDANIEL at: 01/17/2024 06:17:54 by:[id number] PERFORMED BY: [address] [address] PATHOLOGIST FLEET SALESPERSON OREN OWEN M.D.Performed By: #### BLAKE, CUU #### [address] [address] USATroponin I.cardiac [Mass/volume] in Serum or Plasma by Detection limit <= 0.01 ng/Ordered By: Nas Pruett on 18-47-7169Dqhwalgd I.cardiac DL <= 0.01 ng/mL [Mass/Vol]10402.6 pg/mLHigh0.0-20.0[facility]ier HospitalComment on above:Critical Result I_TnIHS_d:45635.6 Called to and read back by: WU MCDANIEL at: 01/17/2024 06:17:54 by:[id number] Cultureon 60-61-5272Zhujlpxb identified Cx Nom (U)ORGANISM: Enterococcus faecalis (O:ENTFAC) [place] Count >100,000 Aerobic RITESH Charge (PCMIC38) SUSCEPTIBILITY [...] RESISTANT TO ALL B-LACTAM DRUGS. PERFORMED BY: [place] [address] PATHOLOGIST FLEET SALESPERSON OREN OWEN M.D.[facility] Physician GroupComment on above:Performed By: #### PTT, PT #### [place] [address] USAUrine culture routineOrdered By: Justina Lara on 62-96-6353Uxpldovo identified Cx Nom (U)Enterococcus faecalisAbnormalParkview Health Montpelier HospitalXR chest 1V portableon 80-75-1850AW chest 1V portable [facility] Main [address] [address] XRay Report Signed Patient: Alex Anderson MR#: [id number] [birth year] : 1945 Acct:[id number] Age/Sex: 78 / M ADM Date: 01/16/24 Loc: Room: [address] [place] [address] Type: ADM IN Attending Dr: Nas Pruett [...] Corky Max M.D.01/17/2024 11:34 AM Dictation Location: [place] [address] Transcribed By: [facility] 01/17/24 1134 Dictated By: Corky Max II, MD 01/17/24 1132 Signed By: 01/17/24 [facility] Physician GroupECG 12 lead ECGon 08-67-4062IYB 12 lead ECGSUMMA HEALTH Main [address] [address] Electrocardiograph Report Signed Patient: Alex Anderson MR#: [id number] [birth year] : 1945 Acct:[id number] Age/Sex: 78 / M ADM Date: 01/16/24 Loc: 4C Room: [address] [place] [address] Type: ADM IN Attending Dr: Nas Pruett [...] Signed By Ana Castro MD 0 01/17/24 0952[facility] Physician GroupECG 12 lead ECGSUMMA HEALTH Main [place] [address] [place] [address] Electrocardiograph Report Signed Patient: Alex Anderson MR#: [id number] [birth year] : 1945 Acct:[id number] Age/Sex: 78 / M ADM Date: 01/16/24 Loc: Room: [address] [place] [address] Type: ADM IN Attending Dr: Nas Pruett [...] Signed By Ana Castro MD 0 01/17/24 0057[facility] Physician GroupGlucose Poct Glucometerson 49-95-1135Iueaktf9Fhx4: Cleaned MeterBaptist Health [facility] Physician GroupComment on above:Result Comment: PERFORMED BY: [place] [address] PATHOLOGIST FLEET SALESPERSON OREN OWEN M.D.Performed By: #### BLAKE, CUU #### [place] [address] USAGlucose [Mass/Vol]118 mg/dLNoECU Health Bertie Hospital Physician GroupComment on above:Result Comment: Random Glucose Reference Range is dependent on time and content of last meal. Glucose of more than 200 mg/dL in a nonstressed, ambulatory subject supports the diagnosis of Diabetes Mellitus.Performed By: #### BLAKE, CUU #### [place] [address] USAGlucose [Mass/Vol]119 mg/dLNoECU Health Bertie Hospital Physician GroupComment on above:Result Comment: Random Glucose Reference Range is dependent on time and content of last meal. Glucose of more than 200 mg/dL in a nonstressed, ambulatory subject supports the diagnosis of Diabetes Mellitus. PERFORMED BY: [place] [address] PATHOLOGIST FLEET SALESPERSON OREN OWEN M.D.Performed By: #### BLAKE, CUU #### [place] [address] USANo Panel InformationOrdered By: Nas Pruett on 01-16-2024 Bedside Glucose CommentGlu2: cleaned [facility] Troponin I High Sensitivityon 30-67-8581Tubadcie I High Sldzoovwcxx38535.2 pg/mL Off scale high0.0-20.0[facility] Physician GroupComment on above:Result Comment: Critical Result I_TnIHS_d:56396.2 Called to and read back by: BRIDGETTE LUIS at: 01/16/2024 20:40:51 by:[id number] PERFORMED BY: [place] [address] PATHOLOGIST FLEET SALESPERSON OREN OWEN M.D.Performed By: #### HS TROP #### [place] [id number] USATroponin I High Eqyayxwmhtq231063.4 pg/mLOff scale high 0.0-20.0[facility] Physician GroupComment on above:Result Comment: Critical Result I_TnIHS_d:112280.4 Called to and read back by: BROOKE CANDELARIA at: 01/16/2024 18:52:06 by:[email or web address] PERFORMED BY: [place] [phone] PATHOLOGIST FLEET SALESPERSON OREN OWEN M.D.Performed By: #### MAISHA LOZANOU #### [place] [address] USATroponin I High Smyeixvezyr132571.2 pg/mLOff scale high 0.0-20.0[facility] Physician GroupComment on above:Result Comment: Critical Result I_TnIHS_d:829788.2 Called to and read back by: BROOKE CANDELARIA at: 01/16/2024 16:28:58 by:[id number] PERFORMED BY: [place] [phone] PATHOLOGIST FLEET SALESPERSON OREN OWEN M.D.Performed By: #### BLAKE CUU #### [place] [id number] USATroponin I High Qomzqymjzkw89605.4 pg/mLOff scale high 0.0-20.0[facility] Physician GroupComment on above:Result Comment: Critical Result I_TnIHS_d:43213.4 Called to and read back by: BROOKE CANDELARIA at: 01/16/2024 14:15:37 by:[id number] PERFORMED BY: [place] [phone] PATHOLOGIST FLEET SALESPERSON OREN OWEN M.D.Performed By: #### BLAKE, CUU #### [facility] [address] [place] [address] USANo Panel InformationOrdered By: Willy Lambert on 13-50-3318Veiwtpvjcxecs Pathology TestSee commentParkview Health Montpelier HospitalComment on above:See report. Scanned copy available in EMR.Pathology Request for Lab Corpon 82-82-5134Kxxmirchv Request for Lab CorpNormalThe [facility] Physician GroupComment on above:Order Comment: PATHOLOGY GI SPECIMEN Result Comment: See report. Scanned copy available in EMR. PERFORMED BY: [place] [id number] PATHOLOGIST FLEET SALESPERSON OREN OWEN M.D.Performed By: #### PATH TO [facility] #### [address] [address] USACholesterol [Mass/volume] in Serum or PlasmaOrdered By: Teo Al on 00-22-8669Fbuiyfkaghf [Mass/Vol]91 mg/jIFze246-083QdkcytdhdParkview Health Montpelier HospitalComment on above:Chol less than 200 mg/dl low riskChol 201-239 mg/dl borderline riskChol 240 mg/dl and greater high riskResult Comment: Chol less than 200 mg/dl low risk Chol 201-239 mg/dl borderline risk Chol 240 mg/dl and greater high riskPerformed By: #### BLAKE, CUU #### [facility] [address] [place] [address] USACholesterol in LDL Calc [Mass/Vol]Ordered By: Teo Al on 15-44-9570Retgpckkamn in LDL [Mass/Vol]37 mg/dL0-100[facility]ier HospitalComment on above:LDL ATP III CLASSIFICATIONLDL less than 100 mg/dL OptimalLDL 100-129 mg/dL Near or above qecurrpXIW667-114 mg/dL Borderline highLDL 160-189 mg/dL HighLDL greater than 189 mg/dL Very high Cholesterol in VLDL Calc [Mass/Vol]Ordered By: Teo Al on 12-26-2023 Cholesterol in VLDL [Mass/Vol]18 mg/dLParkview Health Montpelier HospitalLipid Panelon 99-08-6732WGK Cholesterol,Yqtdnsohha70 mg/dLNormal0-100[facility] Physician GroupComment on above:Result Comment: LDL ATP III CLASSIFICATION LDL less than 100 mg/dL Optimal LDL 100-129 mg/dL Near or above optimal LDL 130-159 mg/dL Borderline high LDL 160-189 mg/dL High LDL greater than 189 mg/dL Very highPerformed By: #### HETALUAPLUS, CUU #### [facility] [address] [place] [address] USATriglyceride w/Keiujt70 mg/dLNormal0-149[facility] Physician GroupComment on above:Result Comment: TRIG ATP III CLASSIFICATION TRIG less than 150 mg/dL Normal TRIG 150-199 mg/dL Borderline high TRIG 200-500 mg/dL High TRIG greater than 500 mg/dL Very high Standard traceable to the Center for Disease Conrtrol and Prevention (CDC) test method.Performed By: #### BLAKE, CUU #### [facility] [address] [place] [address] USAVLDL PNXCVIAXYJW54 mg/dLNormalThe [facility] Physician GroupComment on above:Performed By: #### BLAKE, CUU #### [facility] [address] [place] [address] USASerum or plasma high density lipoprotein (HDL) cholesterol measurementOrdered By: Teo Al on 09-88-3155Lsxpsryrurj in HDL [Mass/Vol]35 mg/hKIpjgxn68-21BlqtsrfviParkview Health Montpelier HospitalComment on above: HDL CHOL ATP-III CLASSIFICATION Cardiovascular RiskHDL > or equal to 60 mg/dL LOWHDL < 40 mg/dL HIGHResult Comment: HDL CHOL ATP-III CLASSIFICATION Cardiovascular Risk HDL > or equal to 60 mg/dL LOW HDL < 40 mg/dL HIGHPerformed By: #### HETALUAJONATHAN, CUU #### [facility] [address] [place] [id number] USASerum or plasma total cholesterol/high density lipoprotein (HDL) cholesterol mass ratOrdered By: Teo Al on 12-26-2023 Cholesterol.total/Cholesterol in HDL [Mass ratio]2.6 {ratio}Normal<5.0[facility]pelier HospitalComment on above:Result Comment: PERFORMED BY: [facility] [address] [place] [address] PATHOLOGIST FLEET SALESPERSON OREN OWEN M.D.Performed By: #### JHONNY LOZANO #### [facility] [address] [place] [address] USATriglyceride [Mass/volume] in Serum or PlasmaOrdered By: Teo Al on 54-53-6549Ufizrhqqvhrg [Mass/Vol]94 mg/dL0-149[facility] HospitalComment on above:TRIG ATP III CLASSIFICATIONTRIG less than 150 mg/dL NormalTRIG 150-199 mg/dL Borderline highTRIG 200-500 mg/dL High TRIG greater than 500 mg/dL Very highStandard traceable to the Center for Disease Conrtrol and Prevention (CDC) test method.Erythrocyte distribution width Auto (RBC) [Ratio]on 49-94-7177Yydriwwpmrn distribution width (RBC) [Ratio]15.4 %High11.0-15.0[facility] HospitalHematocrit Auto (Bld) [Volume fraction]on 28-18-9085Obspcjdvpo (Bld) [Volume fraction]41.3 %Low42.0-54.0 [facility] HospitalHemoglobin [Mass/volume] in Bloodon 10-16-2023 Hemoglobin (Bld) [Mass/Vol]13.3 g/dLLow14.0-18.0[facility] HospitalLaboratory - Chemistry and Chemistry - challengeon 87-09-0896Phkybpttv [Mass/Vol]2.1 mg/dL1.8-2.4FProMedica Toledo HospitalUrate [Mass/Vol]5.9 mg/dL3.5-7.2FProMedica Toledo HospitalLeukocytes [#/volume] corrected for nucleated erythrocytes in Blood by Automated counon 74-96-2421ZKH corrected for nucl RBC Auto (Bld) [#/Vol]9.3 10 3/uL4.0-11.0[facility] MCH Auto (RBC) [Entitic mass]on 75-48-4370BOI (RBC) [Entitic mass]27.8 pg 25.9-34.0[facility] HospitalMCHC Auto (RBC) [Mass/Vol]on 01-70-8324OGLM (RBC) [Mass/Vol]32.2 g/dL29.9-35.2FProMedica Toledo HospitalMCV Auto (RBC) [Entitic vol]on 23-41-3665VNX (RBC) [Entitic vol]86.2 fL 80.0-94.0[facility] HospitalNo Panel Informationon 10-16-2023 Phosphorus Level2.7 mg/dL2.6-4.7FProMedica Toledo HospitalPlatelet mean volume Auto (Bld) [Entitic vol]on 77-21-8875Wgzovuqs mean volume (Bld) [Entitic vol]10.1 fL9.5-13.5FProMedica Toledo HospitalPlatelets Auto (Bld) [#/Vol] on 42-01-2494Miyxgkife (Bld) [#/Vol]197 10 3/mB026-045PebxfbgukParkview Health Montpelier HospitalRBC Auto (Bld) [#/Vol]on 72-82-8788TKP (Bld) [#/Vol]4.79 10 6/uL4.70-6.10 [facility] HospitalLaboratory - Chemistry and Chemistry - challengeon 08-38-2985Hawwltytd Ql (U)NegativeParkview Health Montpelier Hospital Glucose (U) [Mass/Vol]NegativeParkview Health Montpelier HospitalKetones Ql (U) NegativeParkview Health Montpelier HospitalpH (U)7.0 [pH][facility]ner Medical Centerpecific gravity (U) [Rel density]1.010Park[facility]pelier HospitalUrobilinogen (U) [Mass/Vol]0.2 mg/dLParkview Health Montpelier Hospital Laboratory - Specimen informationon 55-56-2884Ndbak (U)LtYellowParkview Health Montpelier HospitalLaboratory - Urinalysison 26-67-1980Plrtiscer esterase Test strip Ql (U)LargeParkview Health Montpelier HospitalNitrite Ql (U)Positive [facility] HospitalProtein Ql (U)30[facility] HospitalCreatinine (Bld) [Mass/Vol]Ordered By: Margarito Valentine on 08-18-2023 Creatinine [Mass/Vol]2.4 mg/dL0.6-1.3FProMedica Toledo HospitalComment on above:ER/ESD physician is notified/shown all ISTAT results.Critical values may be confirmed by laboratorytesting ifdeemed necessary by ER attending doctor.No Panel InformationOrdered By: Margarito Valentine on 63-86-5721Psjhotd Estimated GFR (eGFR)26.776Parkview Health Montpelier HospitalUS.doppler Lower extremity vein - righton 30-07-8044[place] [address] Ultrasound Report Signed Patient: ALEX ANDERSON MR#: [id number] : 1945 Acct:[id number] Age/Sex: 77 / M ADM Date: 07/31/23 Loc: RAD Attending Dr: Shahriar Lewis M.D. Ordering Physician: Shahriar Lewis Date of Service: 07/31/23 Procedure(s): US venous doppler LE RT Accession Number(s): [id number] cc: Shahriar Lewis; STANLEY EMERSON [place] [id number] Patient Name: ALEX ANDERSON MRN: [id number] date: 1945 Sex: M Assigned Patient Location: [facility] Current Patient Location: [facility] Accession/Order Number: [id number] Exam Date: 07/31/2023 08:40 Report Date: 07/31/2023 [...] Signed By: 07/31/23 1050 DD/ 1047 TD/TT: Advanced Solutions Architect:TBHRadiology, Radiologist, - 07/31/[address] [address] Ultrasound Report Signed Patient: ALEX ANDERSON MR#: [id number] : 1945 Acct:[id number] Age/Sex: 77 / M ADM Date: 07/31/23 Loc: RAD Attending Dr: Shahriar Lewis M.D. Ordering Physician: Shahriar Lewis Date of Service: 07/31/23 Procedure(s): US venous doppler LE RT Accession Number(s): [id number] cc: Shahriar Lewis; STANLEY EMERSON [address] [address] Patient Name: ALEX ANDERSON MRN: [id number] date: 1945 Sex: M Assigned Patient Location: [facility] Current Patient Location: [facility] Accession/Order Number: [id number] Exam Date: 07/31/2023 08:40 Report Date: 07/31/2023 [...] Signed By: 07/31/23 1050 DD/ 1047 TD/TT: Advanced Solutions Architect: MARSHAL HealthcareRadiology Study observation (narrative)MARSHAL MadisonUS.doppler Lower extremity vein - rightOrdered By: Radiologist Radiology on 94-45-0690BKGT [employer]oom Work Phone: alanine aminotransferase [Enzymatic activity/volume] in Serum or PlasmaOrdered By: Celia Griffin on 19-35-6121RXM [Catalytic activity/Vol]17 U/L7-52[facility] HospitalAlbumin [Mass/volume] in Serum or Plasma by Bromocresol green (BCG) dye binding methoOrdered By: Celia Griffin on 06-84-3384Upnivnl BCG dye [Mass/Vol]4.2 g/dL3.5-5.7FProMedica Toledo HospitalAlkaline phosphatase [Enzymatic activity/volume] in Serum or PlasmaOrdered By: Celia Griffin on 93-95-8276EMW [Catalytic activity/Vol]72 U/L 34-104Park[facility]ier HospitalAspartate aminotransferase [Enzymatic activity/volume] in Serum or PlasmaOrdered By: Celia Griffin on 87-47-6920ZWN [Catalytic activity/Vol]16 U/L77-49FjlcuiafwParkview Health Montpelier HospitalAutomated erythrocytes count in urine sediment (number/area)Ordered By: Celia Griffin on 51-63-7698LPO Auto (Urine sed) [#/Area]3-4 [HPF]0-4FProMedica Toledo HospitalAutomated leukocytes count in urine sediment (number/area)Ordered By: Celia Griffin on 04-22-1129KER Auto (Urine sed) [#/Area]50-100 [HPF]0-4FProMedica Toledo HospitalBilirubin Test strip Ql (U)Ordered By: Celia Griffin on 05-87-0100Cjpamdwkb Ql (U)NegativeNegativeParkview Health Montpelier Hospital Bilirubin.total [Mass/volume] in Serum or PlasmaOrdered By: Celia Griffin 39-98-6864Ganhitamb [Mass/Vol]0.5 mg/dL0.3-1.0[facility] Calcium [Mass/volume] in Serum or PlasmaOrdered By: Celia Griffin on 04-08-2023 Calcium [Mass/Vol]9.3 mg/dL8.6-10.3FProMedica Toledo HospitalCarbon dioxide, total [Moles/volume] in Serum or PlasmaOrdered By: Celia Griffin on 71-70-2809IW6 [Moles/Vol]31.6 mmol/L21.0-31.0[facility] Chloride [Moles/volume] in Serum or PlasmaOrdered By: Celia Griffin on 04-08-2023 Chloride [Moles/Vol]107 mmol/F76-538ExtvpgvwfParkview Health Montpelier HospitalCholesterol [Mass/volume] in Serum or PlasmaOrdered By: Teo Al on 04-08-2023 Cholesterol [Mass/Vol]107 mg/sD034-846NemjzewgjParkview Health Montpelier HospitalComment on above:Chol less than 200 mg/dl low riskChol 201-239 mg/dl borderline riskChol 240 mg/dl and greater high riskCholesterol in LDL Calc [Mass/Vol]Ordered By: Teo Al on 88-82-3404Bclokdvqjwu in LDL [Mass/Vol]47 mg/dL0-100[facility] HospitalComment on above:LDL ATP III CLASSIFICATIONLDL less than 100 mg/dL OptimalLDL 100-129 mg/dL Near or above kvvvrwxPHY025-666 mg/dL Borderline highLDL 160-189 mg/dL HighLDL greater than 189 mg/dL Very high Cholesterol in VLDL Calc [Mass/Vol]Ordered By: Teo Al on 04-08-2023 Cholesterol in VLDL [Mass/Vol]26 mg/dLParkview Health Montpelier HospitalColor Auto (U)Ordered By: Celia Griffin on 06-17-6735Xjlyg (U)YellowYellowParkview Health Montpelier HospitalCreatinine [Mass/volume] in Serum or PlasmaOrdered By: Celia Griffin 49-51-5846Rvqaonmmma [Mass/Vol]1.41 mg/dL0.70-1.30[facility] HospitalCreatinine [Mass/volume] in UrineOrdered By: Celia Griffin 49-20-8614Kwtjneayzm (U) [Mass/Vol]90.0 mg/dL14.0-26.0[facility]ier HospitalErythrocyte distribution width Auto (RBC) [Ratio]Ordered By: Celia Griffin 11-58-8215Pdjfundfsow distribution width (RBC) [Ratio]15.7 %12.0-14.8 [facility] HospitalFerritin [Mass/volume] in Serum or Plasma Ordered By: Celia Griffin on 41-63-4082Xnfrckxc [Mass/Vol]34.1 ng/mL23.9-336.2 [facility] HospitalFolate [Mass/volume] in Serum or PlasmaOrdered By: Celia Griffin on 83-32-1618Worfee [Mass/Vol]34.0 ng/mL>5.9[facility] HospitalComment on above:Folate reference range: >5.9 ng/mlThe WHO technical consultation on folate and vitamin v93sopqnefituyr has determined that folate concentrations lessthan 4 ng/ml are considered deficient.Globulin Calc (S) [Mass/Vol]Ordered By: Celia Griffin on 12-94-2522Aiqayvcm (S) [Mass/Vol]2.8 g/dLParkview Health Montpelier HospitalGlucose [Mass/volume] in Serum or Plasma Ordered By: Celia Griffin 13-08-9180Kkrlcro [Mass/Vol]107 mg/fP55-014VsjksttglParkview Health Montpelier HospitalComment on above:ADA recommended reference rangeRandom Glucose Reference Range is dependent on time and content of last meal. Glucose of more than 200 mg/dL in a nonstressed, ambulatory subject supports the diagnosisof Diabetes Mellitus.Hematocrit Auto (Bld) [Volume fraction]Ordered By: Celia Griffin 55-23-3080Cmbhtohjey (Bld) [Volume fraction]43.8 %38.8-50.0 [facility] HospitalHemoglobin [Mass/volume] in BloodOrdered By: Celia Griffin 17-60-6448Icvgaxikau (Bld) [Mass/Vol]14.3 g/dL13.0-17.0[facility] HospitalIron [Mass/volume] in Serum or PlasmaOrdered By: Celia Griffin 50-49-6202Agnk [Mass/Vol]53 ug/yO79-027YriggojvkParkview Health Montpelier HospitalIron binding capacity [Mass/volume] in Serum or PlasmaOrdered By: Celia Griffin 27-44-6187Zjef binding capacity [Mass/Vol]370 ug/dE183-590HddbgjrbuParkview Health Montpelier HospitalIron saturation [Mass Fraction] in Serum or PlasmaOrdered By: Celia Griffin 41-23-4973Jppz saturation [Mass fraction]14.3 %20-50 [facility] HospitalKetones Auto test strip (U) [Mass/Vol]Ordered By: Celia Griffin on 84-19-7480Mvtcjro (U) [Mass/Vol]NegativeNegativeParkview Health Montpelier HospitalLaboratory - UrinalysisOrdered By: Celia Griffin on 35-71-3186Moeixqe casts LM Ql (Urine sed)9-19 [LPF]0-8[facility] HospitalLeukocytes [#/volume] corrected for nucleated erythrocytes in Blood by Automated counOrdered By: Celia Griffin on 87-32-0119FPD corrected for nucl RBC Auto (Bld) [#/Vol]8.4 10*3/uL4.1-10.5FMartins Ferry HospitalH Auto (RBC) [Entitic mass]Ordered By: Celia Griffin on 39-16-7807GKU (RBC) [Entitic mass]27.3 pg27.5-35.2FProMedica Toledo HospitalMCHC Auto (RBC) [Mass/Vol] Ordered By: Celia Griffin on 49-70-5728AMMW (RBC) [Mass/Vol]32.6 g/dL32.5-35.6 [facility] HospitalMCV Auto (RBC) [Entitic vol]Ordered By: Celia Griffin on 37-21-1773YBV (RBC) [Entitic vol]83.8 fL83.5-101[facility] HospitalMagnesium [Mass/volume] in Serum or PlasmaOrdered By: Celia Griffin on 52-49-1154Zxvqwvdgk [Mass/Vol]2.2 mg/dL1.9-2.7FProMedica Toledo HospitalNitrite Test strip Ql (U)Ordered By: Celia Griffin on 52-28-6714Tikpvss Ql (U)PositiveNegativeParkview Health Montpelier HospitalNo Panel InformationOrdered By: Celia Griffin on 33-16-1776Nlfeamcym GFR (CKD-EPI)50.692 mL/MinParkview Health Montpelier HospitalPharmacy Creatinine Clearance (ChemN/St. Elizabeth HospitalParathyrin.intact [Mass/volume] in Serum or PlasmaOrdered By: Celia Griffin on 62-96-2006Nmskhaogee.intact [Mass/Vol]76.6 pg/sJ46-34OphpbxneoParkview Health Montpelier HospitalPhosphate [Mass/volume] in Serum or PlasmaOrdered By: Celia Griffin on 25-26-4010Rzshxbygo [Mass/Vol]2.8 mg/dL2.5-4.5FProMedica Toledo HospitalPlatelet mean volume Auto (Bld) [Entitic vol]Ordered By: Celia Griffin on 59-71-0694Jlkmtnna mean volume (Bld) [Entitic vol]8.6 fL6.6-10.1 [facility] HospitalPlatelets Auto (Bld) [#/Vol]Ordered By: Celia Griffin on 83-21-8745Kvekjjpvj (Bld) [#/Vol]201 10*3/jI788-506EswuzbmhvParkview Health Montpelier HospitalPotassium [Moles/volume] in Serum or PlasmaOrdered By: Celia Griffin on 38-56-2483Fnxhvzkps [Moles/Vol]4.5 mmol/L3.5-5.1FProMedica Toledo HospitalProtein Auto test strip (U) [Mass/Vol]Ordered By: Celia Griffin on 19-99-1434Kyozruu (U) [Mass/Vol]Trace mg/dLNegativeParkview Health Montpelier HospitalProtein [Mass/volume] in Serum or PlasmaOrdered By: Celia Griffin on 33-23-4864Ovisijq [Mass/Vol]7.0 g/dL6.4-8.9[facility] Protein [Mass/volume] in UrineOrdered By: Celia Griffin on 70-12-5086Mifkbat (U) [Mass/Vol]30 mg/dL0-9[facility] HospitalRBC Auto (Bld) [#/Vol] Ordered By: Celia Griffin on 09-30-5510SEA (Bld) [#/Vol]5.22 10*6/uL3.90-5.60 [facility] Centererum or plasma albumin/globulin mass ratio Ordered By: Celia Griffin on 24-88-3073Xwcgmgj/Globulin [Mass ratio]1.5 {ratio} [facility] Centererum or plasma anion gap determinationOrdered By: Celia Griffin on 25-99-8399Izixm gap [Moles/Vol]8.9 mmol/L6.0-15.0[facility] Centererum or plasma high density lipoprotein (HDL) cholesterol measurementOrdered By: Teo Al on 30-43-5892Vpeykuydkux in HDL [Mass/Vol]34 mg/oQ08-68IhtpzkojbParkview Health Montpelier HospitalComment on above:HDL CHOL ATP-III CLASSIFICATION Cardiovascular RiskHDL > or equal to 60 mg/dL LOWHDL < 40 mg/dL HIGHSerum or plasma total cholesterol/high density lipoprotein (HDL) cholesterol mass ratOrdered By: Teo Al on 04-08-2023 Cholesterol.total/Cholesterol in HDL [Mass ratio]3.1 {ratio}<5.0[facility] Medical Centerodium [Moles/volume] in Serum or PlasmaOrdered By: Celia Griffin on 10-37-0840Tcvnjx [Moles/Vol]143 mmol/E382-934XykepubzaWexner Medical Centerpecific gravity Auto test strip (U) [Rel density]Ordered By: Celia Griffin on 65-44-2305Gduhtuja gravity (U) [Rel density]1.0171.001-1.030[facility]ner Medical Centerquamous epithelial cells detection in urine sediment by light microscopyOrdered By: Celia Griffin on 26-63-6092Hnyhwgpmrg cells.squamous LM Ql (Urine sed)0-1 [HPF]0-2FProMedica Toledo HospitalTransferrin [Mass/volume] in Serum or PlasmaOrdered By: Celia Griffin on 04-08-2023 Transferrin [Mass/Vol]264 mg/wA584-040ZvijaoitjParkview Health Montpelier Hospital Triglyceride [Mass/volume] in Serum or PlasmaOrdered By: Teo Al on 10-77-4240Ovjeiohjrngs [Mass/Vol]131 mg/dL0-149[facility] Comment on above:TRIG ATP III CLASSIFICATIONTRIG less than 150 mg/dL NormalTRIG 150-199 mg/dL Borderline highTRIG 200-500 mg/dL High TRIG greater than 500 mg/dL Very highStandard traceable to the Center for Disease Conrtrol and Prevention (CDC) test method.Urate [Mass/volume] in Serum or PlasmaOrdered By: Celia Griffin on 82-30-3455Fozmm [Mass/Vol]6.0 mg/dL4.4-7.6FProMedica Toledo Hospital Urea nitrogen [Mass/volume] in Serum or PlasmaOrdered By: Celia Griffin on 52-18-1669Htzu nitrogen [Mass/Vol]27 mg/dL7-25[facility] Urine bacteria detection by automated methodOrdered By: Celia Griffin on 96-92-5925Mokdpbvb Auto Ql (U)4+None SeenParkview Health Montpelier HospitalUrine clarity by refractometry automatedOrdered By: Celia Griffin on 96-43-7419Dqaquts Refractometry automated (U)CloudyCleProMedica Bay Park HospitalUrine glucose measurement by automated test strip (mass/volume)Ordered By: Celia Griffin on 73-70-9187Xqjhzfk Auto test strip (U) [Mass/Vol]Normal mg/dLGalion Community HospitalUrine hemoglobin detection by automated test stripOrdered By: Celia Griffin on 50-39-3002Zkglmkutov Auto test strip Ql (U)1+ NegativeParkview Health Montpelier HospitalUrine leukocyte esterase detection by automated test stripOrdered By: Celia Griffin on 89-69-7310Xnyzvpcgw esterase Auto test strip Ql (U)4+NegativeParkview Health Montpelier HospitalUrine protein/creatinine ratioOrdered By: Celia Griffin on 11-22-2113Nourhbz/Creatinine (U) [Ratio]333 mg/g{Cre}0-200Parkview Health Montpelier HospitalUrobilinogen Auto test strip (U) [Mass/Vol]Ordered By: Celia Griffin on 21-07-0172Rudlnszbxrof (U) [Mass/Vol]Normal mg/dLNoHolzer Health SystemVitamin B12 ser/plasOrdered By: Celia Griffin on 84-22-8500Jkknhegmw (Vitamin B12) [Mass/Vol] 301 pg/sL067-354QqeheewviParkview Health Montpelier HospitalVitamin D+Metabolites [Mass/volume] in Serum or PlasmaOrdered By: Celia Griffin on 27-14-1861Oxqpflg D+Metabolites [Mass/Vol]37.5 ng/tV29-604GevabfjwvParkview Health Montpelier HospitalComment on above:VITAMIN D STATUS 25(OH)VITAMIN D RANGE (ng/mL) Deficient <20 Insufficient 20 to <41Ckjojptqvz88 to 100Reference: Sixto MF,Federico NC, Palomo LESLIE, et al. Evaluation,treatment, and prevention of vitamin D deficiency; an Endocrine Society clinical practice guideline. JCEM. 2010; 96 (7):1911-30.pH Auto test strip (U)Ordered By: Celia Griffin on 47-65-1337bE (U) 7.0 [pH]5.0-9.0Parkview Health Montpelier HospitalOffice Visit (Cardiology)on 53-21-5972Yaaxqx-up visitDiagnoses/Problems Assessed Hypertension (401.9) (I10) Dyslipidemia (272.4) [...] Lipid Panel; Status:Active - Retrospective Authorization; Requested for:66Gpf0427; Overweight with body mass index (BMI) of 27 to 27.9 in adult Healthy Weight Tips; Status:Complete - Retrospective Authorization; Done: [id number] Some eating tips that can help you lose weight.; Status:Complete - Retrospective Authorization; Done: 30Iij7554 SocHx: Current smoker Start: Aspirin 81 MG Oral Tablet Delayed Release; TAKE 1 TABLET DAILY Tobacco Use Screening; Status:Complete; Done: [id number] You need to stop smoking. Though it is not easy, more than half of all adult smokers have quit. We encourage you to write down all the reasons you should quit smoking and set a quit date for yourself. Ask us how we can help. You may also call 8-422-HTPKNOW for free resources and assistance.; Status:Complete - Retrospective Authorization; Done: [id number] Tobacco Use Screening; Status:Complete; Done: 04Wgx6146 Patient Instructions Please bring all medicines, vitamins, [...] negative for complaint. Vitals Vital Signs Recorded: 58Zur2974 09:57AM Heart Rate72, L Radial Coizpxdf370, LUE, Sitting Nhwjfejbj60, LUE, Sitting Height6 ft 2 in Ltyrgg993 lb BMI Eqfpgwrfma87.35 kg/m2 BSA Calculat (more content not included)...NormalUH TouchworksTobacco Screening. on 79-40-1459Kcks risk assessmenta) No falls within the last yearMulti[facility] [email or web address] DO Work Phone: Tobacco use status CPHSa) YesMultiCare [facility] Center [employer] DO Work Phone: Tobacco Screening.YesMultiCare [facility] Center [email or web address] DO Work Phone: CULTURE URINEon 85-28-5732YPEAIPA URINEIsolate 1 Pseudomonas aeruginosa >100,000 cfu/mL of ORGANISM 1 Pseudomonas aeruginosa ANTIBIOTIC M.I.C RX STATUS Piperacillin/Tazobactam <=4 S F Ceftazidime <=1 S F Imipenem 2 S F Amikacin <=2 S F Gentamicin 2 S F Tobramycin <=1 S F Ciprofloxacin <=0.25 S F Levofloxacin <=0.[address] Francis HospitalComment on above:Performed By: #### URTPCR #### [facility] [address] [address] [address] Karen Flores, URINARYon ,8 DihydroxyadenineMartin Memorial HospitalComment on above:Performed By: #### UA #### [facility] [address] [address] [address] Karen PierceAmmonium Acid UrateNormalMercy Health Lorain HospitalComment on above: Performed By: #### UA #### [facility] [address] [address] [address] Karen PierceBilirubin Ql (U)Martin Memorial HospitalComment on above: Performed By: #### UA #### [facility] [address] [address] [address] Kaern Bergeron Oxalate DihydrateNormalMercy Health Anderson Hospitalment on above: Performed By: #### UA #### [facility] [address] [address] [address] Karen BergeronHPO4 (Brushite)[facility] on above: Performed By: #### UA #### [facility] [address] [address] [address] Karen Graceium BilirubinateNOhio State University Wexner Medical Center on above: Performed By: #### UA #### [facility] [address] [address] [address] Karen Graceium CarbonateUK Healthcarement on above: Performed By: #### UA #### [facility] [address] [address] [address] Karen Graceium Oxalate Kfadmukexfr365 %[facility] on above:Performed By: #### UA #### [facility] [address] [address] [address] Karen Graceium PalmitateNoKettering Health PrebleComment on above: Performed By: #### UA #### [facility] [address] [address] [address] Karen Graceium PhosphateNoKettering Health PrebleComment on above: Performed By: #### UA #### [facility] [address] [address] [address] Karen PierceCalcium StearateNOhio State University Wexner Medical Center on above: Performed By: #### UA #### [facility] [address] [address] [address] Karen PierceCarbonate ApatiteMartin Memorial HospitalComhills & dales general hospital on above: Performed By: #### UA #### [facility] [address] [address] [address] Karen Pinoular MaterialDiley Ridge Medical Center on above: Performed By: #### UA #### [facility] [address] [address] [address] Karen PierceCholesterolDiley Ridge Medical Center on above:Performed By: #### UA #### [facility] [address] [address] [address] Karen Salomon ()[facility] on above: Performed By: #### UA #### [facility] [address] [address] [address] Karen RaglandDiley Ridge Medical Center on above:Performed By: #### UA #### [facility] [address] [address] [address] Karen Ragland:[facility] on above:Result Comment: Physician questions regarding Calculi Analysis contact [facility] at: [phone].Performed By: #### UA #### [facility] [address] [address] [address] Karen EastonpositionCommentDiley Ridge Medical Center on above: Result Comment: Percentage (Represents the % composition)Performed By: #### UA #### [facility] [address] [address] [address] Karen PierceCystineDiley Ridge Medical Center on above:Performed By: #### UA #### [facility] [address] [address] [address] Karen Parksmer:CommentUK Healthcarement on above: Result Comment: This test was developed and its performance characteristics determined by [employer] [employer]. It has not been cleared or approved by the Food and Drug Administration.Performed By: #### UA #### [facility] [address] [address] [address] Karen PierceDried BloodMartin Memorial HospitalComment on above:Performed By: #### UA #### [facility] [address] [address] [address] Karen PierceDrug or MetaboliteMartin Memorial HospitalComhills & dales general hospital on above: Performed By: #### UA #### [facility] [address] [place] [address] Dr. Karen PierceHydroxyapatiteMartin Memorial HospitalComhills & dales general hospital on above: Performed By: #### UA #### [facility] [address] [place] [address] Dr. Karen Carter NH4 PO4 (Struvite)Martin Memorial HospitalComment on above: Performed By: #### UA #### [facility] [address] [address] [address] Karen PierceMgHPO4 (Newberyite)Martin Memorial HospitalComment on above: Performed By: #### UA #### [facility] [address] [place] [address] Dr. Karen PierceOther component(s)Martin Memorial HospitalComment on above: Performed By: #### UA #### [facility] [address] [place] [address] Dr. Karen PiercePDF.Martin Memorial HospitalComment on above:Performed By: #### UA #### [facility] [address] [place] [address] Dr. Karen PiercePhotoCommentDiley Ridge Medical Center on above:Result Comment: Photograph will follow under a separate coverPerformed By: #### UA #### [facility] [address] [place] [address] Dr. Karen PiercePlease note:CommentDiley Ridge Medical Center on above: Result Comment: Calculi report will follow via computer, mail or control panel tester delivery.Performed By: #### UA #### [facility] [address] [place] [address] Dr. Karen MerrillRjycfTtmi0c0VehdcxHwn[address] on above:Result Comment: Multiple pieces received. Dimensions of the largest piece reported.Performed By: #### UA #### [facility] [address] [address] [address] Karen Harrisum Acid UrateNOhio State University Wexner Medical Center on above: Performed By: #### UA #### [facility] [address] [place] [address] Dr. Karen IngramCleveland Clinic Medina [facility] on above:Result Comment: Urinary BladderPerformed By: #### UA #### [facility] [address] [place] [address] Dr. Karen NicolePomerene Hospital on above:Performed By: #### UA #### [facility] [address] [place] [address] Dr. Karen Carnes AcidDiley Ridge Medical Center on above:Performed By: #### UA #### [facility] [address] [place] [address] Dr. Karen PierceUric Acid DihydrateNOhio State University [facility] Medical Center on above: Performed By: #### UA #### [facility] [address] [place] [address] Dr. Karen Sandoval158 [facility] on above:Performed By: #### UA #### [facility] [address] [place] [address] Dr. Karen ChristensenGalion Hospital on above:Performed By: #### UA #### [facility] [address] [place] [address] Dr. Jones ChangER URINE PROFILEon 06-57-9328Xhtunsprz Ql (U)NegativeNormal NEGATIVEMercy Health Lorain HospitalComment on above:Performed By: #### UMICRO, ERUR #### [facility] [address] [address] [address] Karen Yang (U)CLEARNormalCLEARMercy Health Lorain HospitalComment on above: Performed By: #### UMICRO, ERUR #### [facility] [address] [address] [address] Karen Salomon (U)YELLOWNormalYELLOWMercy Health Lorain HospitalComment on above: Performed By: #### UMICRO, ERUR #### [facility] [address] [address] [address] Karen Daigle micrscopic examination will be performed if indicated. NormalMercy Health Lorain HospitalComment on above:Performed By: #### UMICRO, ERUR #### [facility] [address] [address] [address] Karen PierceGlucose Ql (U)NegativeNormalNEGATIVEMercy Health Lorain HospitalComment on above:Performed By: #### UMICRO, ERUR #### [facility] [address] [address] [address] Karen PierceHemoglobin Ql (U)LARGEAbnormalNEGSelect Medical Specialty [facility] Comment on above:Performed By: #### MATTRO, ERUR #### [facility] [address] [address] [address] Karen PierceKetones Ql (U)NegativeNormalNEGATIVEMercy Health Lorain HospitalComment on above:Performed By: #### UMICRO, ERUR #### [facility] [address] [address] [address] Karen PierceLEUKOCYTESLARGEAbnormalNEGSelect Medical Specialty Hospital - [facility] NorthComhills & dales general hospital on above:Performed By: #### UMICRO, ERUR #### [facility] [address] [address] [address] Karen PierceNitrite Ql (U)PositiveAbnormalNEGSelect Medical Specialty Hospital [facility] Comment on above:Performed By: #### UMICRO, ERUR #### [facility] [address] [address] [address] Karen PiercepH (U)5.5 [pH]Normal5-9The St. Francis HospitalComment on above: Performed By: #### BONITA, ERUR #### [facility] [address] [address] [address] Karen PierceProtein (U) [Mass/Vol]100 mg/dLAbnormalNEGATIVE/ TRACEThe St. Francis HospitalComment on above:Performed By: #### BONITA, ERUR #### [facility] [address] [place] [address] Dr. Karen PierceSPEC GRAVITY1.545Iabsiw3.005-<=1.025The St. Francis HospitalComment on above:Performed By: #### BONITA, ERUR #### [facility] [address] [place] [address] Dr. Karen Moulton MICRO INDINDICATEDNoKettering Health PrebleComment on above: Performed By: #### BONITA, ERUR #### [facility] [address] [place] [address] Dr. Karen Hernandez Qn (U)1.0 {Tonio'U}/dLNormal0.2 - 1.0The [facility] on above:Performed By: #### BONITA ERUR #### [facility] [address] [place] [address] Dr. Karen Vázquez MICROSCOPIC ONLYon 10-94-1594WLUVKUTKJCEYWEuupipjrDJOZ SEEN The [facility] HospitalComhills & dales [facility] hospital on above:Performed By: #### BONITA, ERUR #### [facility] [address] [place] [address] Dr. Karen Hunt identified Cx Nom (U)INDICATEDMartin Memorial HospitalComment on above:Performed By: #### BONITA, ERUR #### [facility] [address] [place] [address] Dr. Karen Patterson SEENNormalNONE SEENMercy Health St. [facility] on above:Performed By: #### BONITA, ERUR #### [facility] [address] [place] [address] Dr. Karen Yusufystals LM Nom (Urine sed)NONE SEENNormalNONE SEENMercy Health St. [facility] Hospital on above:Performed By: #### BONITA, ERUR #### [facility] [address] [place] [address] Dr. Karen Reyespithelial cells LM Ql (Urine sed)NONE SEENNormalNONE SEEN /RARE The [facility] HospitalComhills & dales general hospital on above:Performed By: #### BONITA, ERUR #### [facility] [address] [place] [address] Dr. Karen RamosCOUSNONE SEENNormalNONE SEENMercy Health St. [facility] on above:Performed By: #### BONITA, ERUR #### [facility] [address] [place] [address] Dr. Karen SanchezC (U) [#/Vol]/uLAbnormal0-2The [facility] on above:Performed By: #### BONITA ERUR #### [facility] [address] [place] [address] Dr. Karen PierceBifcyAFW49-82KftypnsyXGEP SEENMercy Health St. [facility] Hospital on above: Performed By: #### BONITA, ERUR #### [facility] [address] [place] [address] Dr. Karen PiercePTH INTACTon 77-22-5459RZL, Boibpn66 pg/lJBeqofx73-20Bqk [facility] on above:Performed By: #### PTHINT #### [facility] [address] [place] [address] Dr. Karen PierceFERRITINon 81-76-9602Arpgxgon [Mass/Vol]49.0 ng/mLNormal 26.0-388.0The [facility] on above:Performed By: #### URTPCR #### [facility] [address] [place] [address] Dr. Karen Simms AND TIBCon 09-04-2022% ABPMPYGCHA90.3 %NormalThe St[address] Francis HospitalComment on above:Performed By: #### URTPCR #### [facility] [address] [place] [address] Dr. Karen Simms [Mass/Vol]33.0 ug/dLCritically low65.0-175.0The [facility] HospitalComment on above:Performed By: #### URTPCR #### [facility] [address] [place] [address] Dr. Karen BynumC TVUTMS485.0 ug/wUTqcwej966.0-450.0[facility] Comment on above:Performed By: #### URTPCR #### [facility] [address] [place] [address] Dr. Karen Lanier RANDOMon 15-29-6572Vfdpdniys Ql (U)NegativeNormalNEGATIVEThe St. Francis HospitalComment on above:Performed By: #### UA #### [facility] [address] [place] [address] Dr. Karen PierceClarity (U)CLEARNormalCLEARMercy Health Lorain HospitalComment on above: Performed By: #### UA #### [facility] [address] [place] [address] Dr. Karen Salomon (U)LT. YELLOWNormalYELLOWMercy Health Lorain HospitalComment on above:Performed By: #### UA #### [facility] [address] [place] [address] Dr. Karen PierceGlucose Ql (U)NegativeNormalNEGATIVEMercy Health Lorain HospitalComment on above:Performed By: #### UA #### [facility] [address] [place] [address] Dr. Karen PierceHemoglobin Ql (U)MODERATEAbnormalNEGSelect Medical Specialty [facility] Comment on above:Performed By: #### UA #### [facility] [address] [place] [address] Dr. Karen PierceKetones Ql (U)NegativeNormalNEGATIVEMercy Health Lorain HospitalComment on above:Performed By: #### UA #### [facility] [address] [place] [address] Dr. Karen PierceLEUKOCYTESLARGEAbnormalNEGATIVEMercy Health St. [facility] on above:Performed By: #### UA #### [facility] [address] [place] [address] Dr. Karen Bedoyatrjam Ql (U)PositiveAbnormalNEGATIVEMercy Health Lorain Hospital Comment on above:Performed By: #### UA #### [facility] [address] [place] [address] Dr. Karen PiercepH (U)6.5 [pH]Normal5-9The [facility] on above: Performed By: #### UA #### [facility] [address] [place] [address] Dr. Karen PierceSPEC GRAVITY1.171Xpeicg6.005-<=1.025The [facility] Beachwoodment on above:Performed By: #### UA #### [facility] [address] [place] [address] Dr. Karen Lanier GPWVQPC15 mg/dlAbnormalNEGATIVE/ TRACEMercy Health Lorain Hospital Comment on above:Performed By: #### UA #### [facility] [address] [place] [address] Dr. Karen Wangbilinogen Qn (U)0.2 {Tonio'U}/dLNormal0.2 - 1.0The [facility] Beachwoodment on above:Performed By: #### UA #### [facility] [address] [place] [address] Dr. Karen Vázquez T PROTEIN CREAT RATIOon 63-88-5377Bgoqtlt (U) [Mass/Vol] 65.2 mg/dLCritically high<=12.0The [facility] on above:Performed By: #### URTPCR #### [facility] [address] [place] [address] Dr. Karen Moulton PROT CREAT RAT0.76NormalThe St. Francis HospitalComment on above: Performed By: #### URTPCR #### [facility] [address] [place] [address] Dr. Karen Vázquez CREAT85.95 mg/bFQpecki38.00-300.00The [facility] Comment on above:Performed By: #### URTPCR #### [facility] [address] [place] [address] Dr. Karen Ruffin B12 AND FOLATEon 74-30-5024Inibdnezk (Vitamin B12) [Mass/Vol] 279.0 pg/qBVucycy612.0-986.0The [facility] HospitalComment on above:Performed By: #### URTPCR #### [facility] [address] [place] [address] Dr. Karen PierceFOLATE17.80 ng/mLNormal8.60-58.90The [facility] HospitalComment on above:Performed By: #### URTPCR #### [facility] [address] [place] [address] Dr. Karen PierceVITAMIN D 25 OHon 14-65-4880KKC D 25-OH29.9 ng/mLNormalThe St. Francis HospitalComment on above:Performed By: #### URTPCR #### [facility] [address] [place] [address] Dr. Karen Bemreo RANGESSEE UC HealthComment on above: Result Comment: <20 ng/mL Vit D deficient 20 - <30 ng/mL Vit D insufficient 30 - 100 ng/mL Vit D sufficient >100 ng/mL Potential ToxicityPerformed By: #### URTPCR #### [facility] [address] [place] [address] Dr. Karen EdgeC AUTO DIFFon 77-12-4094CBQL #0.1 103/ulNormal0.0-0.1The St. Francis HospitalComment on above:Performed By: #### CBC #### [facility] [address] [place] [address] Dr. Karen PierceBasophils/100 WBC (Bld)0.7 %Normal0.2-2.0[facility] Comment on above:Performed By: #### CBC #### [facility] [address] [place] [address] Dr. Karen Valente #0.2 103/ulNormal0.0-0.7The St. [facility] HospitalComment on above: Performed By: #### CBC #### [facility] [address] [place] [address] Dr. Karen Reyesosinophils/100 WBC (Bld)2.6 %Normal0.9-7.0The [facility] Comment on above:Performed By: #### CBC #### [facility] [address] [place] [address] Dr. Karen Reyesrythrocyte distribution width (RBC) [Ratio]13.8 %Xmvtus46.0-15.0 [facility] HospitalComment on above:Performed By: #### CBC #### [facility] [address] [place] [address] Dr. Karen PierceHematocrit (Bld) [Volume fraction]38.9 %Critically low42.0-54.0 [facility] HospitalComment on above:Performed By: #### CBC #### [facility] [address] [place] [address] Dr. Karen PierceHemoglobin (Bld) [Mass/Vol]12.3 g/dLCritically low14.0-18.0The [facility] HospitalComment on above:Performed By: #### CBC #### [facility] [address] [place] [address] Dr. Karen Ayala #0.01 10e3/ulNormal0.00-0.03The [facility]. [facility] HospitalComment on above:Performed By: #### CBC #### [facility] [address] [place] [address] Dr. Karen Ayala %0.1 %Normal0.0-0.5The [facility]. [facility] HospitalComment on above: Performed By: #### CBC #### [facility] [address] [place] [address] Dr. Karen Torres #1.9 103/ulNormal1.2-3.8The [facility]. [facility] HospitalComment on above:Performed By: #### CBC #### [facility] [address] [place] [address] Dr. Karen Kimmphocytes/100 WBC (Bld)27.0 %Rnahii79.5-60.0The [facility] HospitalComment on above:Performed By: #### CBC #### [facility] [address] [place] [address] Dr. Karen Figueroa DIFF REQNONormalThe St. Francis HospitalComment on above: Performed By: #### CBC #### [facility] [address] [place] [address] Dr. Karen Michael (RBC) [Entitic mass]27.8 zpOfxrlz40.9-34.0The [facility] HospitalComment on above:Performed By: #### CBC #### [facility] [address] [place] [address] Dr. Karen Michael (RBC) [Mass/Vol]31.6 g/dSQtdxmj10.9-35.2The [facility] HospitalComment on above:Performed By: #### CBC #### [facility] [address] [place] [address] Dr. Karen Schuster (RBC) [Entitic vol]87.8 mVOggjwi46.0-94.0The [facility] HospitalComment on above:Performed By: #### CBC #### [facility] [address] [place] [address] Dr. Karen Monteiro #0.6 103/ulNormal0.3-0.8The [facility] HospitalComment on above:Performed By: #### CBC #### [facility] [address] [place] [address] Dr. Karen Elizabethocytes/100 WBC (Bld)8.8 %Normal1.7-12.0[facility] on above:Performed By: #### CBC #### [facility] [address] [place] [address] Dr. Yilan ChangNEUT #4.4 103/ulNormal1.4-6.5The [facility] HospitalComment on above:Performed By: #### CBC #### [facility] [address] [place] [address] Dr. Karen PierceNeutrophils/100 WBC (Bld)60.8 %Hawvmo03.0-75.0The [facility] HospitalComment on above:Performed By: #### CBC #### [facility] [address] [place] [address] Dr. Karen PiercePlatelet mean volume (Bld) [Entitic vol]9.9 fLNormal9.5-13.5The [facility] HospitalComment on above:Performed By: #### CBC #### [facility] [address] [place] [address] Dr. Karen PiercePLT181 103/mmJtqfqn715-272Mzy St. Francis HospitalComment on above: Performed By: #### CBC #### [facility] [address] [place] [address] Dr. Karen PierceRBC4.43 106/ulCritically low4.70-6.10The [facility] HospitalComment on above:Performed By: #### CBC #### [facility] [address] [place] [address] Dr. Karen PierceWBC7.2 103/ulNormal4.0-11.0The St. Francis HospitalComment on above: Performed By: #### CBC #### [facility] [address] [place] [address] Dr. Karen PierceMAGNESIUMon 62-55-6131Vbpdqtjru [Mass/Vol]2.2 mg/dLNormal1.8-2.[address] [facility] HospitalComment on above:Performed By: #### UA #### [facility] [address] [place] [address] Dr. Karen PiercePHOSPHORUSon 75-40-9928Fzturtaem [Mass/Vol]2.9 mg/dLNormal2.6-4.[address] [facility] HospitalComment on above:Performed By: #### UA #### [facility] [address] [address] [address] Karen JonesF 14(COMP METB)on 66-59-9409Kdiyrea [Mass/Vol]3.5 g/dLNormal 3.4-5.0The [facility] HospitalComment on above:Performed By: #### PTHINT #### [facility] [address] [place] [address] Dr. Karen PierceAlbumin/Globulin [Mass ratio]1.0 {ratio}NormalThe St. Francis HospitalComment on above:Performed By: #### PTHINT #### [facility] [address] [place] [address] Dr. Karen Murillo [Catalytic activity/Vol]86 U/VTaubno08-052Lvg St. Francis HospitalComment on above:Performed By: #### PTHINT #### [facility] [address] [place] [address] Dr. Karen RamirezT [Catalytic activity/Vol]17 U/IVamdsb93-47Kaz St. Francis HospitalComment on above:Performed By: #### PTHINT #### [facility] [address] [place] [address] Dr. Karen Landon gap [Moles/Vol]13.0 mmol/LNormalThe [facility] Comment on above:Performed By: #### PTHINT #### [facility] [address] [place] [address] Dr. Karen PierceAST [Catalytic activity/Vol]14 U/LCritically ibf73-94Dhe St. Francis HospitalComment on above:Performed By: #### PTHINT #### [facility] [address] [place] [address] Dr. Karen PierceBilirubin [Mass/Vol]0.3 mg/dLNormal0.2-1.0[facility] Comment on above:Performed By: #### PTHINT #### [facility] [address] [place] [address] Dr. Karen PierceCO2 [Moles/Vol]27.6 mmol/YFgvppk31.0-32.0[facility] Comment on above:Performed By: #### PTHINT #### [facility] [address] [address] [address] Karen PireceCreatinine [Mass/Vol]1.48 mg/dLCritically high0.70-1.30The [facility] HospitalComment on above:Performed By: #### PTHINT #### [facility] [address] [address] [address] Karen ReyesGFR-AF FUXNXZER70 mL/min/1.33c3Dyjoecmrou low>=60The St. Francis HospitalComment on above:Performed By: #### PTHINT #### [facility] [address] [address] [address] Karen ReyesGFR-NON AF YPPYCWDJ31 mL/min/1.43y4Rdxmpeevpi low>=60The [facility] HospitalComment on above:Performed By: #### PTHINT #### [facility] [address] [place] [address] Dr. Karen PierceGlobulin (S) [Mass/Vol]3.6 g/dLMartin Memorial HospitalComment on above:Performed By: #### PTHINT #### [facility] [address] [place] [address] Dr. Karen PierceGlucose [Mass/Vol]105 mg/lRCtzmwz59-940QnrMercy Health Lorain Hospital Comment on above:Performed By: #### PTHINT #### [facility] [address] [place] [address] Dr. Karen PierceProtein [Mass/Vol]7.1 g/dLNormal6.4-8.2The [facility] Comment on above:Performed By: #### PTHINT #### [facility] [address] [place] [address] Dr. Karen PierceSodium [Moles/Vol]142 mmol/DHfrrnr350-965CfzMercy Health Lorain Hospital Comment on above:Performed By: #### PTHINT #### [facility] [address] [place] [address] Dr. Karen PierceUrea nitrogen/Creatinine [Mass ratio]16.2 mg/mgNoKettering Health PrebleComment on above:Performed By: #### PTHINT #### [facility] [address] [place] [address] Dr. Karen PiercePROTuan CHEM 8 (BAS METB)on 57-74-1101Adhpy gap [Moles/Vol]11.1 mmol/LNormalThe St. Francis HospitalComment on above:Performed By: #### UA #### [facility] [address] [place] [address] Dr. Karen PierceCalcium [Mass/Vol]8.7 mg/dLNormal8.5-10.1[facility] Comment on above:Performed By: #### UA #### [facility] [address] [place] [address] Dr. Karen PiercePerformed By: #### PTHINT #### [facility] [address] [place] [address] Dr. Kaern PierceChloride [Moles/Vol]106 mmol/QVgbcbh30-524Rcf [facility] Comment on above:Performed By: #### UA #### [facility] [address] [place] [address] Dr. Karen PiercePerformed By: #### PTHINT #### [facility] [address] [place] [address] Dr. Karen PierceCO2 [Moles/Vol]28.5 mmol/SZwkxsm15.0-32.0[facility] Comment on above:Performed By: #### UA #### [facility] [address] [place] [address] Dr. Karen PierceCreatinine [Mass/Vol]1.44 mg/dLCritically high0.70-1.30The [facility]. Francis HospitalComment on above:Performed By: #### UA #### [facility] [address] [place] [address] Dr. Jones ChangEGFR-AF HSHVBSTA82 mL/min/1.24l4Srmcdkxino low>=60The St. Francis HospitalComment on above:Performed By: #### UA #### [facility] [address] [place] [address] Dr. Karen ReyesGFR-NON AF TCDDDFJB37 mL/min/1.04p5Wjcueemcxx low>=60The [facility] HospitalComment on above:Performed By: #### UA #### [facility] [address] [place] [address] Dr. Karen PierceGlucose [Mass/Vol]104 mg/tWPzfltm29-806WrmMercy Health Lorain Hospital Comment on above:Performed By: #### UA #### [facility] [address] [place] [address] Dr. Karen PiercePotassium [Moles/Vol]4.6 mmol/LNormal3.5-5.1[facility] Comment on above:Performed By: #### UA #### [facility] [address] [place] [address] Dr. Karen PiercePerformed By: #### PTHINT #### [facility] [address] [place] [address] Dr. Karen PierceSodium [Moles/Vol]141 mmol/ABplowi695-551Hma [facility] Comment on above:Performed By: #### UA #### [facility] [address] [place] [address] Dr. Karen PierceUrea nitrogen [Mass/Vol]24.0 mg/dLCritically high7.0-18.0The [facility] HospitalComment on above:Performed By: #### UA #### [facility] [address] [place] [address] Dr. Karen PiercePerformed By: #### PTHINT #### [facility] [address] [place] [address] Dr. Karen PierceUrea nitrogen/Creatinine [Mass ratio]16.7 mg/mgNormalThe St. Francis HospitalComment on above:Performed By: #### UA #### [facility] [address] [place] [address] Dr. Karen PiercePROTIMEandrzej 09-76-0614LZR Coag (PPP) [Relative time]1.01 {INR} NormalThe St. Francis HospitalComment on above:Performed By: #### PTT, PT #### [facility] [address] [place] [address] Dr. Karen Stanley GUIDELINESSEE BELOWNormalThKettering Memorial HospitalComment on above:Result Comment: DESIRED INR: 2.0 - 3.0 CONDITIONS NOT LISTED BELOW 2.5 - 3.5 FOR PROSTHETIC HEART VALVE REPLACEMENT 2.5 - 3.5 RECURRENT THROMBOSIS Performed By: #### PTT, PT #### [facility] [address] [place] [address] Dr. Karen PiercePT Coag (PPP) [Time]10.7 sNormal9.0-11.6[facility] Comment on above:Performed By: #### PTT, PT #### [facility] [address] [place] [address] Dr. Karen GusmanTon 23-32-6210vRSJ Coag (Bld) [Time]28.2 cQzwves67.3-36.2[facility] HospitalComment on above:Performed By: #### PTT, PT #### [facility] [address] [place] [address] Dr. Karen PierceURIC ACID SERUMon 50-53-4168Yhzju [Mass/Vol]4.8 mg/dLNormal 3.5-7.2The [facility] HospitalComment on above:Performed By: #### PTHINT #### [facility] [address] [place] [address] Dr. Karen PierceCreatinine (Bld) [Mass/Vol]Ordered By: Margarito Valentine on 73-11-5643Vlsvylqthb [Mass/Vol]1.5 mg/dL0.6-1.3FProMedica Toledo Hospital Comment on above:ER/ESD physician is notified/shown all ISTAT results.Critical values may be confirmed by laboratorytesting ifdeemed necessary by ER attending doctor.Creatinine (Bld) [Mass/Vol]Ordered By: Heather Omalley on 07-24-2022 Creatinine [Mass/Vol]1.6 mg/dL0.6-1.3FProMedica Toledo HospitalComment on above:ER/ESD physician is notified/shown all ISTAT results.Critical values may be confirmed by laboratorytesting ifdeemed necessary by ER attending doctor.No Panel InformationOrdered By: Heather Omalley on 05-68-3782QHH Estimated GFR Ojystzeh71OuvntxuxmParkview Health Montpelier HospitalComment on above:GFR estimated reference range: According to KDOQI guidelines, <60 ml/min/1.73m2 is sufficient todiagnose a patient with chronic kidney disease.POC Estimated GFR Non- Acdh06QnwyujxztParkview Health Montpelier HospitalBlood activated clotting time by coagulation assayOrdered By: Margarito Valentine on 94-41-2796EAG Coag (Bld) 215 y73-302LrcsxvyuvParkview Health Montpelier HospitalComment on above:Reference Range: 90-139 (Non-heparinized)Basophils Auto (Bld) [#/Vol]Ordered By: Margarito Valentine on 76-13-2021Sqgkgfjhz (Bld) [#/Vol]0.1 10*3/uL0.0-0.2FProMedica Toledo HospitalBasophils/100 WBC Auto (Bld)Ordered By: Margarito Valentine on 61-40-1282Ajaftkeqk/100 WBC (Bld)0.9 %.[facility] HospitalCreatinine and Glomerular filtration rate.predicted panel (S/P/Bld)Ordered By: Margarito Valentine on 18-82-3807Zlhemxlpof [Mass/Vol]1.24 mg/dL0.64-1.27 [facility] HospitalEosinophils Auto (Bld) [#/Vol]Ordered By: Margarito Valentine on 80-22-9770Gmuusfcdlfg (Bld) [#/Vol]0.2 10*3/uL0.0-0.45 [facility] HospitalEosinophils/100 WBC Auto (Bld)Ordered By: Margarito Valentine on 34-04-8297Dxxlhuotnvg/100 WBC (Bld)2.5 %.[facility] HospitalErythrocyte distribution width Auto (RBC) [Ratio]Ordered By: Margarito Valentine on 88-35-0316Dazaaatyzvi distribution width (RBC) [Ratio] 18.0 %12.0-14.8[facility] HospitalEstimated glomerular filtration rate (GFR) non- AmericanOrdered By: Margarito Valentine on 06-21-2022 GFR/1.73 sq M.predicted among non-blacks MDRD (S/P/Bld) [Vol rate/Area]56 mL/Min [facility] HospitalHematocrit Auto (Bld) [Volume fraction]Ordered By: Margarito Valentine on 93-92-0981Zgmfcpnkpw (Bld) [Volume fraction]37.7 % 38.8-50.0[facility] HospitalHemoglobin [Mass/volume] in Blood Ordered By: Margarito Valentine on 29-59-6542Ubnqtsacaf (Bld) [Mass/Vol]12.3 g/dL 13.0-17.0[facility] HospitalLeukocytes [#/volume] corrected for nucleated erythrocytes in Blood by Automated counOrdered By: Margarito Valentine on 65-76-8366GYI corrected for nucl RBC Auto (Bld) [#/Vol]7.1 10*3/uL4.1-10.5 [facility] HospitalLymphocytes Auto (Bld) [#/Vol]Ordered By: Margarito Valentine on 43-32-2837Aisvlfkfuaf (Bld) [#/Vol]1.3 10*3/uL1.00-4.8 [facility] HospitalLymphocytes/100 WBC Auto (Bld)Ordered By: Margarito Valentine on 96-52-5265Mkvnucguelu/100 WBC (Bld)18.7 %.[facility] Auto (RBC) [Entitic mass]Ordered By: Margarito Valentine on 70-28-2861NCJ (RBC) [Entitic mass]28.2 pg27.5-35.2FProMedica Toledo HospitalMCHC Auto (RBC) [Mass/Vol]Ordered By: Margarito Valentine on 82-62-9376UAQR (RBC) [Mass/Vol]32.6 g/dL32.5-35.6FProMedica Toledo HospitalMCV Auto (RBC) [Entitic vol]Ordered By: Margarito Valentine on 06-21-2022 MCV (RBC) [Entitic vol]86.5 fL83.5-101Park[facility] Mont[facility] HospitalMonocytes Auto (Bld) [#/Vol]Ordered By: Margarito Valentine on 87-45-9251Cxeoomjga (Bld) [#/Vol]0.7 10*3/uL0.0-0.8[facility] HospitalMonocytes/100 WBC Auto (Bld)Ordered By: Margarito Valentine on 46-03-8846Kkvzkdpvh/100 WBC (Bld)10.3 %. [facility] HospitalNeutrophils Auto (Bld) [#/Vol]Ordered By: Margarito Valentine on 28-13-2089Gommdsuoyxv (Bld) [#/Vol]4.8 10*3/uL1.8-7.7 [facility] HospitalNeutrophils/100 WBC Auto (Bld)Ordered By: Margarito Valentine on 37-29-4913Hzkphixgdmm/100 WBC (Bld)67.6 %.[facility] HospitalNo Panel InformationOrdered By: Margarito Valentine on 55-61-3122Ljxqgtrba GFR ()> 60 mL/MinParkview Health Montpelier HospitalComment on above:GFR estimated reference range: According to KDOQI guidelines, <60 ml/min/1.73m2 is sufficient todiagnose a patient with chronic kidney disease.Pharmacy Creatinine Clearance (ChemN/[facility] HospitalNucleated erythrocytes [Presence] in Blood by Automated countOrdered By: Margarito Valentine on 77-80-5838Koalggiha RBC Auto Ql (Bld)0.1 /100{WBC}0-0.5 [facility] HospitalPlatelet mean volume Auto (Bld) [Entitic vol] Ordered By: Margarito Valentine on 42-15-3334Glqllkyy mean volume (Bld) [Entitic vol]8.2 fL6.6-10.1FProMedica Toledo HospitalPlatelets Auto (Bld) [#/Vol] Ordered By: Margarito Valentine on 25-16-3726Qpchtpfhd (Bld) [#/Vol]149 10*3/uL 150-450Park[facility] Montpelier HospitalRBC Auto (Bld) [#/Vol]Ordered By: Margairto Valentine on 36-39-4479FON (Bld) [#/Vol]4.36 10*6/uL3.90-5.60[facility] Centererum or plasma anion gap determinationOrdered By: Margarito Valentine on 19-27-9797Ilgcg gap [Moles/Vol]10.8 mmol/L6.0-15.0 [facility] Centererum or plasma calcium measurement (mass/volume)Ordered By: Margarito Valentine on 91-36-8010Rngoqay [Mass/Vol]8.8 mg/dL8.2-10.2FOhioHealth Grant Medical Centererum or plasma chloride measurement (moles/volume)Ordered By: Margarito Valentine on 51-96-7284Okypyrjp [Moles/Vol]107 mmol/Y22-676ZfngpyxncWexner Medical Centererum or plasma glucose measurement (mass/volume)Ordered By: Margarito Valentine on 06-21-2022 Glucose [Mass/Vol]103 mg/vV74-261CspyuklhjParkview Health Montpelier HospitalComment on above:ADA recommended reference rangeRandom Glucose Reference Range is dependent on time and content of last meal. Glucose of more than 200 mg/dL in a nonstressed, ambulatory subject supports the diagnosisof Diabetes Mellitus.Serum or plasma potassium measurement (moles/volume)Ordered By: Margarito Valentine on 84-71-0094Iizgdkycd [Moles/Vol]4.2 mmol/L3.5-5.1FOhioHealth Grant Medical Centererum or plasma sodium measurement (moles/volume)Ordered By: Margarito Valentine on 12-05-9136Roviku [Moles/Vol]138 mmol/S601-487YlvjvumaaWexner Medical Centererum or plasma total carbon dioxide measurement (moles/volume) Ordered By: Margarito Valentine on 34-28-3029KA7 [Moles/Vol]24.4 mmol/L22.0-30.0 [facility] Centererum or plasma urea nitrogen measurement (mass/volume)Ordered By: Margarito Valentine on 84-30-4232Aavz nitrogen [Mass/Vol]18 mg/dL9-23Park[facility] HospitalWBC Auto (Bld) [#/Vol] Ordered By: Margarito Valentine on 41-98-8530UBT (Bld) [#/Vol]7.1 10*3/uL4.1-10.5 [facility] HospitalOffice Visit (Cardiology)on 45-62-6695Tcxxif-up visitDiagnoses/Problems Assessed Dyslipidemia (272.4) (E78.5) Hypertension (401.9) [...] Complaint ALEX ANDERSON is being seen for [facility] [place]/[place]g. 76-year-old white male who I saw [...] Signs Recorded: 03Jun2022 03:38PM Heart Rate71, Apical Qqivdtjq019, LUE, Sitting Bvjbozwdh53, LUE, Sitting Height6 ft 2 in Dxkyid017 lb BMI Dbffmdmxxb80.45 kg/m2 BSA Calculated2.2 Tobacco Useb) No PHQ-2 [...] regular (more content not included)...NormalUH TouchworksTobacco Screening.on 16-88-1682Iwnzu depression screening assessmentNo-[facility] [address] DO Work Phone: Fall risk assessmenta) No falls within the last year -[facility] [address] DO Work Phone: Tobacco use status CPHSb) NoM-[facility] [place] [address] DO Work Phone: Basophils Auto (Bld) [#/Vol]Ordered By: Bernabe Cr on 97-54-8718Cuikflkpb (Bld) [#/Vol]0.1 10*3/uL0.0-0.2FProMedica Toledo HospitalBasophils/100 WBC Auto (Bld)Ordered By: Bernabe Cr on 93-13-0567Xeubwbkyq/100 WBC (Bld)1.2 %.[facility] HospitalCreatinine and Glomerular filtration rate.predicted panel (S/P/Bld)Ordered By: Bernabe Cr on 51-57-9387Egalxdznom [Mass/Vol]1.78 mg/dL0.64-1.27 [facility] HospitalEosinophils Auto (Bld) [#/Vol]Ordered By: Bernabe Cr on 80-11-4262Rbyhewsydat (Bld) [#/Vol]0.3 10*3/uL0.0-0.45 [facility] HospitalEosinophils/100 WBC Auto (Bld)Ordered By: Bernabe Cr on 88-60-8933Nbxxdhetapu/100 WBC (Bld)3.6 %.[facility] HospitalErythrocyte distribution width Auto (RBC) [Ratio]Ordered By: Bernabe Cr on 06-70-6246Xvyevwfmuuj distribution width (RBC) [Ratio]15.3 %12.0-14.8[facility] HospitalEstimated glomerular filtration rate (GFR) non- AmericanOrdered By: Bernabe Cr on 74-14-7449FAX/1.73 sq M.predicted among non-blacks MDRD (S/P/Bld) [Vol rate/Area]37 mL/MinParkview Health Montpelier HospitalHematocrit Auto (Bld) [Volume fraction]Ordered By: Bernabe Cr on 15-02-9726Oiezckfebc (Bld) [Volume fraction]36.2 %38.8-50.0[facility] HospitalHemoglobin [Mass/volume] in BloodOrdered By: Bernabe Cr on 63-26-8669Apyemfjavk (Bld) [Mass/Vol]11.7 g/dL13.0-17.0[facility] HospitalLeukocytes [#/volume] corrected for nucleated erythrocytes in Blood by Automated coun Ordered By: Bernabe Cr on 38-83-3457OYN corrected for nucl RBC Auto (Bld) [#/Vol]8.1 10*3/uL4.1-10.5FProMedica Toledo HospitalLymphocytes Auto (Bld) [#/Vol]Ordered By: Bernabe Cr on 06-74-7404Ftfwrsyhvbb (Bld) [#/Vol]1.4 10*3/uL1.00-4.8[facility] HospitalLymphocytes/100 WBC Auto (Bld)Ordered By: Bernabe Cr on 58-62-2593Xmjtzqkvpjv/100 WBC (Bld)16.9 %.[facility] Auto (RBC) [Entitic mass] Ordered By: Bernabe Cr on 91-22-6011FCB (RBC) [Entitic mass]27.4 pg 27.5-35.2FHolzer Medical Center – Jackson Auto (RBC) [Mass/Vol]Ordered By: Bernabe Cr on 63-81-1392NAFG (RBC) [Mass/Vol]32.5 g/dL32.5-35.6 [facility] HospitalMCV Auto (RBC) [Entitic vol]Ordered By: Bernabe Cr on 90-81-3187MWO (RBC) [Entitic vol]84.3 fL83.5-101 [facility] HospitalMonocytes Auto (Bld) [#/Vol]Ordered By: Bernabe Cr on 07-49-9610Uzxxtxbxw (Bld) [#/Vol]0.8 10*3/uL0.0-0.8 [facility] HospitalMonocytes/100 WBC Auto (Bld)Ordered By: Bernabe Cr on 63-90-9279Wmpfccens/100 WBC (Bld)10.1 %.[facility] HospitalNeutrophils Auto (Bld) [#/Vol]Ordered By: Bernabe Cr on 62-80-4763Qffcaydhcax (Bld) [#/Vol]5.6 10*3/uL1.8-7.7FProMedica Toledo HospitalNeutrophils/100 WBC Auto (Bld)Ordered By: Bernabe Cr on 39-72-7618Wdiyxxcieot/100 WBC (Bld)68.2 %.[facility] HospitalNo Panel InformationOrdered By: Bernabe Cr on 05-22-2022 Estimated GFR ()45 mL/MinParkview Health Montpelier Hospital Comment on above:GFR estimated reference range: According to KDOQI guidelines, <60 ml/min/1.73m2 is sufficient todiagnose a patient with chronic kidney disease.Pharmacy Creatinine Clearance (Chem39.77[facility] HospitalNucleated erythrocytes [Presence] in Blood by Automated countOrdered By: Bernabe Cr on 44-71-2857Pwgoulujd RBC Auto Ql (Bld)0.1 /100{WBC}0-0.5 [facility] HospitalPlatelet mean volume Auto (Bld) [Entitic vol] Ordered By: Bernabe Cr on 89-20-0492Sywysskb mean volume (Bld) [Entitic vol]8.7 fL6.6-10.1FProMedica Toledo HospitalPlatelets Auto (Bld) [#/Vol]Ordered By: Bernabe Cr on 53-02-8015Rcfkensqj (Bld) [#/Vol]198 10*3/sW512-318CaguivweyParkview Health Montpelier HospitalRBC Auto (Bld) [#/Vol]Ordered By: Bernabe Cr on 31-72-3150QEL (Bld) [#/Vol]4.29 10*6/uL3.90-5.60 [facility] Centererum or plasma anion gap determinationOrdered By: Bernabe Cr on 30-58-7107Hgmnt gap [Moles/Vol]13.3 mmol/L6.0-15.0 [facility] Centererum or plasma calcium measurement (mass/volume)Ordered By: Bernabe Cr on 89-31-9106Htadjxh [Mass/Vol]8.3 mg/dL8.2-10.2FOhioHealth Grant Medical Centererum or plasma chloride measurement (moles/volume)Ordered By: Bernabe Cr on 96-04-2376Srwhyuag [Moles/Vol]104 mmol/Y98-906SlaxlliaoWexner Medical Centererum or plasma glucose measurement (mass/volume)Ordered By: Bernabe Cr on 05-22-2022 Glucose [Mass/Vol]180 mg/fU15-866AzetjvdrqParkview Health Montpelier HospitalComment on above:ADA recommended reference rangeRandom Glucose Reference Range is dependent on time and content of last meal. Glucose of more than 200 mg/dL in a nonstressed, ambulatory subject supports the diagnosisof Diabetes Mellitus.Serum or plasma potassium measurement (moles/volume)Ordered By: Bernabe Cr on 95-51-4760Jqptqvdvq [Moles/Vol]3.3 mmol/L3.5-5.1FOhioHealth Grant Medical Centererum or plasma sodium measurement (moles/volume)Ordered By: Bernabe Cr on 13-37-1421Plhzhh [Moles/Vol]137 mmol/S388-232YlaqutgeeWexner Medical Centererum or plasma total carbon dioxide measurement (moles/volume) Ordered By: Bernabe Cr on 50-71-6070HN7 [Moles/Vol]23.0 mmol/L 22.0-30.0[facility] Centererum or plasma urea nitrogen measurement (mass/volume)Ordered By: Bernabe Cr on 93-92-0504Bdax nitrogen [Mass/Vol]21 mg/dL9-23[facility] HospitalWBC Auto (Bld) [#/Vol]Ordered By: Bernabe Cr on 23-74-4229VFD (Bld) [#/Vol]8.1 10*3/uL4.1-10.5FProMedica Toledo HospitalNo Panel InformationOrdered By: Bernabe Cr on 91-66-758909302277-Cebnsvw Vitamin D Total15.9 ng/uZ56-317 [facility] HospitalComment on above:VITAMIN D STATUS 25(OH)VITAMIN D RANGE (ng/mL) Deficient <20 Insufficient 20 to <78Uhbehdcfyv60 to 100Reference: Sixto MF,Federico MATA, Palomo LESLIE, et al. Evaluation,treatment, and prevention of vitamin D deficiency; an Endocrine Society clinical practice guideline. JCEM. 2010; 96(7):1911-30.Vitamin C level0.2 mg/dL0.4-2.0[facility] HospitalComment on above:This test was developed and its performance characteristicsdetermined by [facility]. It has not been cleared orapproved by the Food and Drug Administration.Vitamin C deficiency is generally defined as plasma orserum concentrations less than 0.2 mg/dL and levels between0.2 and 0.4 mg/dL are considered low.Performed at: - [address] [id number] Director: Mamadou Rodriguez MD, Phone: [phone] [Mass/volume] in Serum or PlasmaOrdered By: Taz Barnes on 73-64-0806Ldvubk [Mass/Vol]5.5 ng/mL>5.9[facility] HospitalComment on above:Folate reference range: >5.9 ng/mlThe WHO technical consultation on folate and vitamin i70fymyzobvadid has determined that folate concentrations lessthan 4 ng/ml are considered deficient.Laboratory - Chemistry and Chemistry - challengeOrdered By: Taz Barnes on 05-20-2022 Cobalamin (Vitamin B12) [Mass/Vol]169 pg/dV566-845YgpmtzvouParkview Health Montpelier HospitalNo Panel InformationOrdered By: Taz Barnes on 82-21-5099Hwy and Parasite Result 1FProMedica Toledo HospitalOva and Parasite Result 1 [facility]ier HospitalOva or parasites identificationOrdered By: Taz Barnes on 34-06-7956Cqx and parasites identified LM Nom (Unsp spec) [facility] and parasites identified LM Nom (Unsp spec) [facility] HospitalLaboratory - Chemistry and Chemistry - challengeOrdered By: Janice Gonzalez on 87-93-4555Urcppavrz [Mass/Vol]1.7 mg/dL 1.6-2.6FProMedica Toledo HospitalAutomated erythrocytes count in urine sediment (number/area)Ordered By: Taz Barnes on 16-79-0104JZY Auto (Urine sed) [#/Area]50-100 [HPF]0-4FProMedica Toledo HospitalAutomated leukocytes count in urine sediment (number/area)Ordered By: Taz Barnes on 18-11-7144UBD Auto (Urine sed) [#/Area]Innumerable [HPF]0-4FProMedica Toledo HospitalAutomated urine hyaline casts count (number/volume)Ordered By: Taz Barnes on 53-38-1427Hasjpsa casts Auto (U) [#/Vol]None seen [LPF]0-1 [facility] HospitalBilirubin Test strip Ql (U)Ordered By: Taz Barnes on 67-05-5821Jzcudvnkn Ql (U)NegativeNegativeParkview Health Montpelier HospitalCast typing in urine sediment by light microscopyOrdered By: Taz Barnes on 64-10-8089Bibss LM Nom (Urine sed)None seen [LPF]None SeenParkview Health Montpelier HospitalColor Auto (U)Ordered By: Taz Barnes on 05-18-2022 Color (U)YellowYellowParkview Health Montpelier HospitalKetones Auto test strip (U) [Mass/Vol]Ordered By: Taz Barnes on 06-13-4236Envbfdh (U) [Mass/Vol] NegativeNegMercy Health Springfield [facility] Medical CenterNitrite Test strip Ql (U) Ordered By: Taz Barnes on 53-43-0105Dfszpei Ql (U)NegativeNegMercy Health Springfield Regional Medical CenterProtein Auto test strip (U) [Mass/Vol]Ordered By: Taz Barnes on 76-18-4331Nzfkiyg (U) [Mass/Vol]100 mg/dLNegGalion Hospitalpecific gravity Auto test strip (U) [Rel density]Ordered By: Taz Barnes on 63-84-8517Lngdymfx gravity (U) [Rel density]1.0101.001-1.030 [facility] Centerquamous epithelial cells detection in urine sediment by light microscopyOrdered By: Taz Barnes on 36-45-3168Ssydzozsmu cells.squamous LM Ql (Urine sed)1-2 [HPF]0-2FProMedica Toledo Hospital Urine bacteria detection by automated methodOrdered By: Taz Barnes on 95-12-8435Ennlkrov Auto Ql (U)None seenNone SeenParkview Health Montpelier HospitalUrine clarity by refractometry automatedOrdered By: Taz Barnes on 36-10-7373Xjiycuc Refractometry automated (U)TurbidCleProMedica Bay Park HospitalUrine culture routineOrdered By: Taz Barnes on 05-18-2022 Bacteria identified Cx Nom (U)No Growth 2 [facility] Bacteria identified Cx Nom (U)No Growth 2 [facility] Urine glucose measurement by automated test strip (mass/volume)Ordered By: Taz Barnes on 93-53-7881Skjrsrk Auto test strip (U) [Mass/Vol]Normal mg/dL NormalParkview Health Montpelier HospitalUrine hemoglobin detection by automated test stripOrdered By: Taz Barnes on 49-11-6952Txwxteysal Auto test strip Ql (U)2+[facility] HospitalUrine leukocyte esterase detection by automated test stripOrdered By: Taz Barnes on 57-54-7648Kruqnqkae esterase Auto test strip Ql (U)4+[facility] Urobilinogen Auto test strip (U) [Mass/Vol]Ordered By: Taz Barnes on 00-29-6457Ndiapcubvbru (U) [Mass/Vol]Normal mg/dLNormalParkview Health Montpelier HospitalYeast detection in urine sediment by light microscopyOrdered By: Taz Barnes on 68-74-0021Kpgdj LM Ql (Urine sed)None seen [HPF]None Seen [facility]pelier HospitalpH Auto test strip (U)Ordered By: Taz Barnes on 65-71-0922yT (U)7.5 [pH]5.0-9.0[facility] Montpelier HospitalActivated partial thromboplastin time (aPTT) in platelet poor plasma by coagulation a Ordered By: Taz Barnes on 15-24-3411gXDJ Coag (PPP) [Time]29.5 s25.1-36.5 [facility]ier HospitalBody fluid albumin measurement (mass/volume) Ordered By: Taz Barnes on 07-70-5539Rabrdzr (Body fld) [Mass/Vol]2.9 g/dL 3.2-5.5FProMedica Toledo HospitalCBC AUTO DIFFon 95-44-9889GSOZ #0.0 103/ulNormal0.0-0.1The [facility] HospitalComment on above:Performed By: #### CBC #### [facility] [address] [address] [address] Karen PierceBasophils/100 WBC (Bld)0.3 %Normal0.2-2.0The [facility] Comment on above:Performed By: #### CBC #### [facility] [address] [address] [address] Karen Valente #0.1 103/ulNormal0.0-0.7The [facility] HospitalComment on above: Performed By: #### CBC #### [facility] [address] [address] [address] Karen Reyesosinophils/100 WBC (Bld)0.7 %Critically low0.9-7.0The [facility] HospitalComment on above:Performed By: #### CBC #### [facility] [address] [address] [address] Karen Reyesrythrocyte distribution width (RBC) [Ratio]14.8 %Syqdhv47.0-15.0 [facility] Hospitalment on above:Performed By: #### CBC #### [facility] [address] [place] [address] Dr. Karen PierceHematocrit (Bld) [Volume fraction]39.4 %Critically low42.0-54.[address] [facility] HospitalComment on above:Performed By: #### CBC #### [facility] [address] [place] [address] Dr. Karen PierceHemoglobin (Bld) [Mass/Vol]12.6 g/dLCritically low14.0-18.0The [facility] Beachwoodment on above:Performed By: #### CBC #### [facility] [address] [place] [address] Dr. Karen Ayala #0.04 10e3/ulCritically high0.00-0.03The [facility] Comment on above:Performed By: #### CBC #### [facility] [address] [place] [address] Dr. Karen Ayala %0.4 %Normal0.0-0.5The [facility] on above: Performed By: #### CBC #### [facility] [address] [place] [address] Dr. Karen BrandtH #1.2 103/ulNormal1.2-3.8The [facility] [place]woodment on above:Performed By: #### CBC #### [facility] [address] [place] [address] Dr. Karen Kimmphocytes/100 WBC (Bld)11.8 %Critically low20.5-60.0[facility] on above:Performed By: #### CBC #### [facility] [address] [place] [address] Dr. Karen GarzaUAL DIFF REQNONormalThe St. Francis HospitalComment on above: Performed By: #### CBC #### [facility] [address] [address] [address] Karen Michael (RBC) [Entitic mass]27.5 obZgubzf06.9-34.0The [facility] HospitalComment on above:Performed By: #### CBC #### [facility] [address] [place] [address] Dr. Karen Michael (RBC) [Mass/Vol]32.0 g/zWQcxgou97.9-35.2The [facility] HospitalComment on above:Performed By: #### CBC #### [facility] [address] [place] [address] Dr. Karen Michael (RBC) [Entitic vol]86.0 hYHktcjt53.0-94.0The [facility] HospitalComment on above:Performed By: #### CBC #### [facility] [address] [place] [address] Dr. Karen Monteiro #1.4 103/ulCritically high0.3-0.8The [facility] Comment on above:Performed By: #### CBC #### [facility] [address] [place] [address] Dr. Karen Elizabethocytes/100 WBC (Bld)13.8 %Critically high1.7-12.0The [facility] HospitalComment on above:Performed By: #### CBC #### [facility] [address] [place] [address] Dr. Karen Cronin #7.6 103/ulCritically high1.4-6.5The [facility] Comment on above:Performed By: #### CBC #### [facility] [address] [place] [address] Dr. Karen Bakerutrophils/100 WBC (Bld)73.0 %Yurpmm26.0-75.0The [facility] HospitalComment on above:Performed By: #### CBC #### [facility] [address] [place] [address] Dr. Karen Amandalet mean volume (Bld) [Entitic vol]10.6 fLNormal9.5-13.5The [facility] HospitalComment on above:Performed By: #### CBC #### [facility] [address] [address] [address] Karen PiercePLT193 103/zoIlgowd393-034Xem St. Francis HospitalComment on above: Performed By: #### CBC #### [facility] [address] [address] [address] Karen PierceRBC4.58 106/ulCritically low4.70-6.10The [facility] HospitalComment on above:Performed By: #### CBC #### [facility] [address] [address] [address] Karen PierceWBC10.4 103/ulNormal4.0-11.0The [facility] HospitalComment on above:Performed By: #### CBC #### [facility] [address] [place] [address] Dr. Karen PierceCT ABD/PELVIS WO CONon [id number] ABD/PELVIS WO CONEXAMINATION: CT ABD/PELVIS WO CON [...] Electronically authenticated by: LORENZO SCHERER Date: 2022-05-16 09:21NoKettering Health PrebleCULTURE URINEon 23-57-2001XHBIVSC URINECulture Observations: MODERATE GROWTH OF MIXED SKIN JAS. NO POTENTIAL PATHOGENS SEEN.NormalThe St. Francis HospitalComment on above:Performed By: #### URTPCR #### [facility] [address] [place] [address] Dr. Karen Williamson-19 PCR (CVDTB)on 07-23-7841BXUC-CoV-2 (COVID-19) RNA KARI+probe Ql (Unsp spec)Not detectedNormalNOT DETECTEDThe [facility] Comment on above:Result Comment: When diagnostic [...] for this test is supported by the [place] of Health and Human Service's declaration that [...] longer be used).Performed By: #### UA #### [facility] [address] [place] [address] Dr. Karen PierceCreatinine [Mass/volume] in UrineOrdered By: Taz Barnes on 71-84-8637Fnezppgygm (U) [Mass/Vol]68.1 mg/dLParkview Health Montpelier Hospital Comment on above:No reference range establishedER URINE PROFILEon 05-16-2022 Bilirubin Ql (U)NegativeNormalNEGATIVEAvita Health System HospitalComment on above: Performed By: #### URTPCR #### [facility] [address] [place] [address] Dr. Karen PierceClisa (U)CLEARNormalCLEARMercy Health Lorain HospitalComment on above: Performed By: #### URTPCR #### [facility] [address] [place] [address] Dr. Karen Salomon (U)YELLOWNormalYELLOWMercy Health Lorain HospitalComment on above: Performed By: #### URTPCR #### [facility] [address] [place] [address] Dr. Karen Daigle micrscopic examination will be performed if indicated. NormalThe [facility] HospitalComment on above:Performed By: #### URTPCR #### [facility] [address] [place] [address] Dr. Karen PierceGlucose Ql (U)NegativeNormalNEGATIVEMercy Health Lorain HospitalComment on above:Performed By: #### URTPCR #### [facility] [address] [place] [address] Dr. Karen PierceHemoglobin Ql (U)MODERATEAbnormalNEGATIVEMercy Health Lorain Hospital Comment on above:Performed By: #### URTPCR #### [facility] [address] [place] [address] Dr. Karen Goldenones Ql (U)NegativeNormalNEGATIVEMercy Health Lorain HospitalComment on above:Performed By: #### URTPCR #### [facility] [address] [place] [address] Dr. Karen PierceLEUKOCYTESLARGEAbnormalNEGATIVEMercy Health Lorain HospitalComment on above:Performed By: #### URTPCR #### [facility] [address] [place] [address] Dr. Karen PierceNitrite Ql (U)NegativeNormalNEGATIVEMercy Health Lorain HospitalComment on above:Performed By: #### URTPCR #### [facility] [address] [place] [address] Dr. Karen PiercepH (U)5.5 [pH]Normal5-9[facility] HospitalComment on above: Performed By: #### URTPCR #### [facility] [address] [place] [address] Dr. Karen PierceSPEC GRAVITY<=1.687Bclrorsv2.005-<=1.025[facility] Comment on above:Performed By: #### URTPCR #### [facility] [address] [place] [address] Dr. Karen Lanier PROTEINNegativeNormalNEGATIVE/ TRACEMercy Health Lorain Hospital Comment on above:Performed By: #### URTPCR #### [facility] [address] [place] [address] Dr. Karen Moulton MICRO INDINDICATEDNormalThKettering Memorial HospitalComment on above: Performed By: #### URTPCR #### [facility] [address] [place] [address] Dr. Karen Wangbilinogen Qn (U)0.2 {Tonio'U}/dLNormal0.2 - 1.0Mer[facility] HospitalComment on above:Performed By: #### URTPCR #### [facility] [address] [address] [address] Karen PierceGlobulin Calc (S) [Mass/Vol]Ordered By: Taz Barnes on 95-36-8664Ocdwqpdm (S) [Mass/Vol]3.5 g/dLParkview Health Montpelier Hospital Laboratory - CoagulationOrdered By: Taz Barnes on 70-51-5328JH Coag (PPP) [Time]14.2 s9.0-12.9Park[facility]pelier HospitalPROF 14(COMP METB)on 90-67-8437Dpcxolf [Mass/Vol]3.1 g/dLCritically low3.4-5.0The [facility] Comment on above:Performed By: #### URTPCR #### [facility] [address] [place] [address] Dr. Karen PierceAlbumin/Globulin [Mass ratio]0.7 {ratio}NormalThe St. Francis HospitalComment on above:Performed By: #### URTPCR #### [facility] [address] [place] [address] Dr. Karen Murillo [Catalytic activity/Vol]96 U/WEcxeyk31-454Qco St. [facility] HospitalComment on above:Performed By: #### URTPCR #### [facility] [address] [place] [address] Dr. Karen Matthew [Catalytic activity/Vol]46 U/BWcsbbe78-28Xmm St. [facility] HospitalComment on above:Performed By: #### URTPCR #### [facility] [address] [place] [address] Dr. Karen Landon gap [Moles/Vol]19.7 mmol/LNormalThe [facility] Comment on above:Performed By: #### URTPCR #### [facility] [address] [place] [address] Dr. Karen PierceAST [Catalytic activity/Vol]21 U/AMxanfq09-70Gck St. [facility] HospitalComment on above:Performed By: #### URTPCR #### [facility] [address] [address] [address] Karen PierceBilirubin [Mass/Vol]0.3 mg/dLNormal0.2-1.0The [facility] Comment on above:Performed By: #### URTPCR #### [facility] [address] [place] [address] Dr. Karen PierceCalcium [Mass/Vol]8.9 mg/dLNormal8.5-10.1The [facility] Comment on above:Performed By: #### URTPCR #### [facility] [address] [place] [address] Dr. Karen PierceChloride [Moles/Vol]101 mmol/VZmsgmc48-310Jkn [facility] Comment on above:Performed By: #### URTPCR #### [facility] [address] [place] [address] Dr. Karen iPerceCO2 [Moles/Vol]18.3 mmol/LCritically low21.0-32.0The [facility] HospitalComment on above:Performed By: #### URTPCR #### [facility] [address] [place] [address] Dr. Karen PierceCreatinine [Mass/Vol]8.99 mg/dLCritically high0.70-1.30The [facility] HospitalComment on above:Performed By: #### URTPCR #### [facility] [address] [place] [address] Dr. Karen ReyesGFR-AF AMERICAN7 mL/min/1.34z6Abomqrgmrv low>=60The St. [facility] HospitalComment on above:Performed By: #### URTPCR #### [facility] [address] [place] [address] Dr. Karen ReyesGFR-NON AF AMERICAN6 mL/min/1.82x2Hidareddit low>=60The [facility] HospitalComment on above:Performed By: #### URTPCR #### [facility] [address] [place] [address] Dr. Karen PierceGlobulin (S) [Mass/Vol]4.7 g/dLNormalThe [facility] HospitalComment on above:Performed By: #### URTPCR #### [facility] [address] [address] [address] Karen PierceGlucose [Mass/Vol]110 mg/dLCritically uuux38-294Zgo St. [facility] HospitalComment on above:Performed By: #### URTPCR #### [facility] [address] [address] [address] Karen PiercePotassium [Moles/Vol]5.0 mmol/LNormal3.5-5.1The [facility] Comment on above:Performed By: #### URTPCR #### [facility] [address] [address] [address] Karen PierceProtein [Mass/Vol]7.8 g/dLNormal6.4-8.2[facility] Comment on above:Performed By: #### URTPCR #### [facility] [address] [address] [address] Karen PierceSodium [Moles/Vol]134 mmol/LCritically vcg659-087Lmu St. [facility] HospitalComment on above:Performed By: #### URTPCR #### [facility] [address] [address] [address] Karen PierceUrea nitrogen [Mass/Vol]129.0 mg/dLCritically high7.0-18.0[facility] HospitalComment on above:Performed By: #### URTPCR #### [facility] [address] [address] [address] Karen PierceUrea nitrogen/Creatinine [Mass ratio]14.3 mg/mgNormalThe St. Francis HospitalComment on above:Performed By: #### URTPCR #### [facility] [address] [address] [address] Karen PiercePlatelet poor plasma international normalized ratio (INR) by coagulation assay (relatOrdered By: Taz Barnes on 48-08-2428GBE Coag (PPP) [Relative time]1.3 {INR}[facility] HospitalComment on above:INR Therapeutic Range A) Pre- [...] Serum or PlasmaOrdered By: Taz Barnes on 17-58-9884Jpjaoel [Mass/Vol]6.4 g/dL6.1-7.9[facility] Centererum or plasma alanine aminotransferase measurement without P-5'-P (enzymatic activiOrdered By: Taz Barnes on 82-78-2670KFU No additional P-5'-P [Catalytic activity/Vol]38 U/G40-07IfsalapztWexner Medical Centererum or plasma albumin/globulin mass ratioOrdered By: Taz Barnes on 33-53-7802Qsrztcz/Globulin [Mass ratio]0.8 {ratio}[facility] Centererum or plasma alkaline phosphatase measurement (enzymatic activity/volume)Ordered By: Taz Barnes on 05-16-2022 ALP [Catalytic activity/Vol]78 U/T78-22OredfcrmjWexner Medical Centererum or plasma aspartate aminotransferase measurement (enzymatic activity/volume)Ordered By: Taz Barnes on 10-61-7650SHJ [Catalytic activity/Vol]19 U/H36-50AssgybthsWexner Medical Centererum or plasma total bilirubin measurement (mass/volume) Ordered By: Taz Barnes on 51-92-2362Tcpecmqki [Mass/Vol]0.4 mg/dL0.3-1.2 [facility] HospitalURINE MICROSCOPIC ONLYon 87-53-5552GTBOQJQC SMALLAbnormalNONE SEENMercy Health Lorain HospitalComment on above:Performed By: #### URTPCR #### [facility] [address] [place] [address] Dr. Karen Hunt identified Cx Nom (U)INDICATEDMartin Memorial HospitalComhills & dales general hospital on above:Performed By: #### URTPCR #### [facility] [address] [address] [address] Karen Patterson SEENNormalNONE SEENMercy Health St. [facility] on above:Performed By: #### URTPCR #### [facility] [address] [address] [address] Karen Yusufystals LM Nom (Urine sed)NONE SEENNormalNONE SEENMercy Health St. [facility] Hospital on above:Performed By: #### URTPCR #### [facility] [address] [address] [address] Jones ChangEpithelial cells LM Ql (Urine sed)NONE SEENNormalNONE SEEN /RARE The [facility] HospitalComhills & dales general hospital on above:Performed By: #### URTPCR #### [facility] [address] [address] [address] Karen PierceMUCOUSNONE SEENNormalNONE SEENMercy Health St. [facility] on above:Performed By: #### URTPCR #### [facility] [address] [address] [address] Karen PierceShfjrIXA58-23Oaaehoxy7-1Cxb [facility] on above: Performed By: #### URTPCR #### [facility] [address] [address] [address] Karen PierceWBC (U) [#/Vol]/uLAbnormalNONE SEENMercy Health St. [facility] Hospital on above:Performed By: #### URTPCR #### [facility] [address] [address] [address] Karen Vázquez sodium measurement (moles/volume)Ordered By: Taz Barnes on 03-34-6840Unlmjc (U) [Moles/Vol]42.0 mmol/LFProMedica Toledo Hospital Comment on above:No reference range establishedXR ABD FLAT_UPon 50-07-9973XU ABD FLAT_UPEXAMINATION: XR ABD FLAT_UP HISTORY: Fatigue [...] Electronically authenticated by: LORENZO SCHERER Date: 2022-05-16 09:25NoAshtab[facility] AUTO DIFFon 22-14-2788NPDL #0.0 103/ulNormal0.0-0.1The St. [facility] HospitalComment on above:Performed By: #### UA #### [facility] [address] [address] [address] Karen PierceBasophils/100 WBC (Bld)0.3 %Normal0.2-2.0The [facility] Comment on above:Performed By: #### UA #### [facility] [address] [address] [address] Karen Valente #0.1 103/ulNormal0.0-0.7The St. [facility] HospitalComment on above: Performed By: #### UA #### [facility] [address] [address] [address] Karen Reyesosinophils/100 WBC (Bld)0.7 %Critically low0.9-7.0The [facility] HospitalComment on above:Performed By: #### UA #### [facility] [address] [address] [address] Karen Reyesrythrocyte distribution width (RBC) [Ratio]14.9 %Svojzs42.0-15.[address] [facility] HospitalComment on above:Performed By: #### UA #### [facility] [address] [address] [address] Karen PierceHematocrit (Bld) [Volume fraction]39.8 %Critically low42.0-54.0 [facility] HospitalComment on above:Performed By: #### UA #### [facility] [address] [address] [address] Karen PierceHemoglobin (Bld) [Mass/Vol]12.7 g/dLCritically low14.0-18.0The [facility] HospitalComment on above:Performed By: #### UA #### [facility] [address] [address] [address] Karen Ayala #0.06 10e3/ulCritically high0.00-0.03The [facility] Comment on above:Performed By: #### UA #### [facility] [address] [address] [address] Karen Ayala %0.5 %Normal0.0-0.5The [facility] HospitalComment on above: Performed By: #### UA #### [facility] [address] [address] [address] Karen Torres #0.9 103/ulCritically low1.2-3.8The [facility] Comment on above:Performed By: #### UA #### [facility] [address] [place] [address] Dr. Karen Brandthocytes/100 WBC (Bld)7.1 %Critically low20.5-60.0The [facility] HospitalComment on above:Performed By: #### UA #### [facility] [address] [address] [address] Karen GarzaUAL DIFF REQNONormalThe St. Francis HospitalComment on above: Performed By: #### UA #### [facility] [address] [address] [address] Karen Michael (RBC) [Entitic mass]27.7 tjCcfksv81.9-34.0The [facility] [facility] HospitalComment on above:Performed By: #### UA #### [facility] [address] [place] [address] Dr. Karen Michael (RBC) [Mass/Vol]31.9 g/tENypjzn54.9-35.2The [facility] HospitalComment on above:Performed By: #### UA #### [facility] [address] [place] [address] Dr. Karen Michael (RBC) [Entitic vol]86.7 jTDutjkc63.0-94.0The Eva HospitalComment on above:Performed By: #### UA #### [facility] [address] [address] [address] Karen Monteiro #1.0 103/ulCritically high0.3-0.8The [facility] Comment on above:Performed By: #### UA #### [facility] [address] [address] [address] Karen Elizabethocytes/100 WBC (Bld)8.5 %Normal1.7-12.0[facility] Comment on above:Performed By: #### UA #### [facility] [address] [address] [address] Karen Cronin #9.9 103/ulCritically high1.4-6.5ThKettering Memorial Hospital Comment on above:Performed By: #### UA #### [facility] [address] [address] [address] Kraen Bakerutrophils/100 WBC (Bld)82.9 %Critically high43.0-75.0[facility] HospitalComment on above:Performed By: #### UA #### [facility] [address] [address] [address] Karen Amandalet mean volume (Bld) [Entitic vol]9.7 fLNormal9.5-13.5ThKettering Memorial HospitalComment on above:Performed By: #### UA #### [facility] [address] [address] [address] Karen PiercePLT206 103/aqQvcinm530-956Mxi St. [facility] HospitalComment on above: Performed By: #### UA #### [facility] [address] [address] [address] Karen PierceRBC4.59 106/ulCritically low4.70-6.10ThKettering Memorial HospitalComment on above:Performed By: #### UA #### [facility] [address] [place] [address] Dr. Karen PierceWBC11.9 103/ulCritically high4.0-11.0The [facility] HospitalComment on above:Performed By: #### UA #### [facility] [address] [place] [address] Dr. Karen PierceLIPASEon 21-44-5274Ivpjjw [Catalytic activity/Vol]340.0 U/LNormal 73.0-393.0The [facility] HospitalComment on above:Performed By: #### UA #### [facility] [address] [place] [address] Dr. Karen PiercePROF 14(COMP METB)on 61-02-1093Tzazqmm [Mass/Vol]3.1 g/dL Critically low3.4-5.0The [facility] HospitalComment on above:Performed By: #### UA #### [facility] [address] [place] [address] Dr. Karen PierceAlbumin/Globulin [Mass ratio]0.7 {ratio}NormalThe St. [facility] HospitalComment on above:Performed By: #### UA #### [facility] [address] [place] [address] Dr. Karen RamirezP [Catalytic activity/Vol]105 U/USnzhyv38-006Kdu St. [facility] HospitalComment on above:Performed By: #### UA #### [facility] [address] [place] [address] Dr. Karen Matthew [Catalytic activity/Vol]49 U/POpuhmy05-13Pdn [facility] HospitalComment on above:Performed By: #### UA #### [facility] [address] [place] [address] Dr. Karen Landon gap [Moles/Vol]18.4 mmol/LNormalThe [facility] Comment on above:Performed By: #### UA #### [facility] [address] [place] [address] Dr. Karen Ch [Catalytic activity/Vol]20 U/CTymjuk47-75Dsp [facility] HospitalComment on above:Performed By: #### UA #### [facility] [address] [place] [address] Dr. Karen PierceBilirubin [Mass/Vol]0.3 mg/dLNormal0.2-1.0The [facility] Comment on above:Performed By: #### UA #### [facility] [address] [place] [address] Dr. Karen PierceCalcium [Mass/Vol]9.1 mg/dLNormal8.5-10.1[facility] Comment on above:Performed By: #### UA #### [facility] [address] [place] [address] Dr. Karen PierceChloride [Moles/Vol]103 mmol/GEjzimf09-598Nup [facility] Comment on above:Performed By: #### UA #### [facility] [address] [place] [address] Dr. Karen PierceCO2 [Moles/Vol]20.1 mmol/LCritically low21.0-32.0The [facility] HospitalComment on above:Performed By: #### UA #### [facility] [address] [place] [address] Dr. Karen PierceCreatinine [Mass/Vol]9.58 mg/dLCritically high0.70-1.30The [facility] HospitalComment on above:Performed By: #### UA #### [facility] [address] [place] [address] Dr. Karen ReyesGFR-AF AMERICAN6 mL/min/1.95x5Exipgnfpub low>=60The [facility] HospitalComment on above:Performed By: #### UA #### [facility] [address] [place] [address] Dr. Karen ReyesGFR-NON AF AMERICAN5 mL/min/1.77e7Nsasogusvr low>=60The [facility] HospitalComment on above:Performed By: #### UA #### [facility] [address] [place] [address] Dr. Karen PierceGlobulin (S) [Mass/Vol]4.6 g/dLNormalThe St. Francis HospitalComment on above:Performed By: #### UA #### [facility] [address] [place] [address] Dr. Karen PierceGlucose [Mass/Vol]114 mg/dLCritically lrhp65-705Kvk St[facility] HospitalComment on above:Performed By: #### UA #### [facility] [address] [place] [address] Dr. Karen PiercePotassium [Moles/Vol]5.5 mmol/LCritically high3.5-5.1The [facility] HospitalComment on above:Performed By: #### UA #### [facility] [address] [place] [address] Dr. Karen PierceProtein [Mass/Vol]7.7 g/dLNormal6.4-8.2The [facility] Comment on above:Performed By: #### UA #### [facility] [address] [place] [address] Dr. Karen Elliottdium [Moles/Vol]136 mmol/JUhqjjj510-726Lpa [facility] Comment on above:Performed By: #### UA #### [facility] [address] [place] [address] Dr. Karen PierceUrea nitrogen [Mass/Vol]134.0 mg/dLCritically high7.0-18.0The [facility] HospitalComment on above:Performed By: #### UA #### [facility] [address] [place] [address] Dr. Karen Kennedy nitrogen/Creatinine [Mass ratio]14.0 mg/mgNormalThe St. Francis HospitalComment on above:Performed By: #### UA #### [facility] [address] [place] [address] Dr. Karen PiercePROF CHEM 8 (BAS METB)on [id number] gap [Moles/Vol]12.6 mmol/LNormalThe St. Francis HospitalComment on above:Performed By: #### BMP #### [facility] [address] [place] [address] Dr. Karen PierceCalcium [Mass/Vol]8.7 mg/dLNormal8.5-10.1The [facility] Comment on above:Performed By: #### BMP #### [facility] [address] [place] [address] Dr. Karen PierceChloride [Moles/Vol]103 mmol/MBouifw24-701Nyj [facility] Comment on above:Performed By: #### BMP #### [facility] [address] [address] [address] Karen PierceCO2 [Moles/Vol]27.3 mmol/XXgrczh27.0-32.0The [facility] Comment on above:Performed By: #### BMP #### [facility] [address] [address] [address] Karen PierceCreatinine [Mass/Vol]1.26 mg/dLNormal0.70-1.30The [facility] HospitalComment on above:Performed By: #### BMP #### [facility] [address] [place] [address] Dr. Jones ChangEGFR-AF POLISH>60Normal>=60The [facility] HospitalComment on above:Performed By: #### BMP #### [facility] [address] [address] [address] Karen ReyesGFR-NON AF SRKJTJIF85 mL/min/1.52b3Uhuetwjvwr low>=60The [facility] HospitalComment on above:Performed By: #### BMP #### [facility] [address] [place] [address] Dr. Karen PierceGlucose [Mass/Vol]111 mg/dLCritically tyaz99-210Xmv St[facility] HospitalComment on above:Performed By: #### BMP #### [facility] [address] [address] [address] Karen PiercePotassium [Moles/Vol]3.9 mmol/LNormal3.5-5.1The [facility] Comment on above:Performed By: #### BMP #### [facility] [address] [place] [address] Dr. Karen PierceSodium [Moles/Vol]139 mmol/QAfiwdp748-749Rkh [facility] Comment on above:Performed By: #### BMP #### [facility] [address] [place] [address] Dr. Karen PierceUrea nitrogen [Mass/Vol]21.0 mg/dLCritically high7.0-18.0[facility] HospitalComment on above:Performed By: #### BMP #### [facility] [address] [place], [place] [address] Dr. Karen PierceUrea nitrogen/Creatinine [Mass ratio]16.7 mg/mgNoWayne HealthCare Main Campuse St. [facility] HospitalComment on above:Performed By: #### BMP #### [facility] [address] [address] [address] Karen PierceComprehensive Metabolic Panelon [id number] [Mass/Vol]4.5 g/dLNormal3.6-5.1[facility] SpecialistComment on above:Performed By: #### CMP, LIPD #### [facility] [address] [place], [place] [id number]/Globulin [Mass ratio]2.0 {ratio}Normal1.0-2.5Norand[facility]n [facility] SpecialistComment on above:Performed By: #### CMP, LIPD #### [facility] [address] [place], [place] [id number] [Catalytic activity/Vol]97 U/KRhhbdw52-080Otjdnjwz [place] [facility] SpecialistComment on above:Performed By: #### CMP, LIPD #### [facility] [address] [place], [place] [id number] [Catalytic activity/Vol]18 U/LNormal9-46Nortb[facility] cardon [facility] centern [facility] SpecialistComment on above:Result Comment: 04/25/2021 Female reference range changed.Performed By: #### CMP, LIPD #### [facility] [address] [facility] [place] [id number] gap [Moles/Vol]17 mmol/HIvudlx63-68Wgwcezkf [place] [facility] SpecialistComment on above:Result Comment: Effective 05/31/2019 reference range changed.Performed By: #### CMP, LIPD #### [facility] [address] [facility] [place] [id number] [Catalytic activity/Vol]15 U/COmmcuj03-36Exxjkhux [place] [facility] SpecialistComment on above:Performed By: #### CMP, LIPD #### [facility] [address] [place], [place] [id number] [Mass/Vol]0.55 mg/dLNormal0.30-1.20[facility] [place] [facility] SpecialistComment on above:Performed By: #### CMP, LIPD #### [facility] [address] [place], [place] [id number]/CREA17 RatioNormal6-22[facility] [place] [facility] [employer] Comment on above:Performed By: #### CMP, LIPD #### [facility] [address] [place], [place] [id number] [Mass/Vol]9.8 mg/dLNormal8.6-10.2[facility] [place] [facility] SpecialistComment on above:Performed By: #### CMP, LIPD #### [facility] [address] [place], [place] [id number] [Moles/Vol]106 mmol/ZXtbohy49-821Vszkhjqh [place] [facility] SpecialistComment on above:Performed By: #### CMP, LIPD #### [facility] [address] [place], [place] [id number] [Moles/Vol]23 mmol/DBdnwsc28-02Eeznlcpw [place] [facility] SpecialistComment on above:Performed By: #### CMP, LIPD #### [facility] [address] [place], [place] [id number] [Mass/Vol]1.2 mg/dLNormal0.7-1.4[facility] [place] [facility] SpecialistComment on above:Performed By: #### CMP, LIPD #### [facility] [address] [facility] [place] [id number] mL/min/1.19b5Cueedn>60[facility] cardon [facility] centern [place] [facility] SpecialistComment on above:Performed By: #### CMP, LIPD #### [facility] [address] [facility] [place] [id number] mL/min/1.37l8Obb>60[facility] [place] [employer] Comment on above:Performed By: #### CMP, LIPD #### [facility] [address] [place], [place] [id number] (S) [Mass/Vol]2.3 g/dLNormal1.9-3.7NoReg[facility] SpecialistComment on above:Performed By: #### CMP, LIPD #### [facility] [address] [place], [place] [id number] [Mass/Vol]105 mg/jOOtuy00-91Ozuhnvon [place] [facility] SpecialistComment on above:Result Comment: For FASTING Glucose --- ADA reference ranges: Normal 65-99 mg/dl Prediabetes 100-125 Diabetes >/= 126Performed By: #### MAGALIE, LIPD #### [facility] [address] [place], [place] [id number] [Moles/Vol]4.1 mmol/LNormal3.5-5.5NoRegency Hospital [facility] SpecialistComment on above:Performed By: #### CMP, LIPD #### [facility] [address] [place], [place] [id number] [Mass/Vol]6.8 g/dLNormal6.1-8.1[facility] SpecialistComment on above:Performed By: #### CMP, LIPD #### [facility] [address] [place], [place] [id number] [Moles/Vol]142 mmol/DGblznh499-000Jbdmkjvu [place] [facility] SpecialistComment on above:Performed By: #### CMP, LIPD #### [facility] [address] [place], [place] [id number] nitrogen [Mass/Vol]20 mg/dLNormal7-25NortTri[facility] SpecialistComment on above:Performed By: #### CMP, LIPD #### [facility] [address] [place], [place] [id number] Panelon 22-42-1525Supskowtqeq [Mass/Vol]109 mg/dLLow 125-200NoReg[facility] SpecialistComment on above:Result Comment: Low risk < 200mg/dL Borderline risk 201-239 mg/dl High risk > or equal to 240Performed By: #### CMP, LIPD #### [facility] [address] [place], [place] [id number] in HDL [Mass/Vol]30 mg/dLLow>40[facility] SpecialistComment on above:Result Comment: High Cardiovascular Risk HDL <40 mg/dL Low Cardiovascular Risk HDL > or equal to 60 mg/dlPerformed By: #### CMP, LIPD #### [facility] [address] [place], [place] [id number] in LDL [Mass/Vol]54 mg/dLNoWilson [facility] SpecialistComment on above:Result Comment: LDL ATP III CLASSIFICATION LDL less than 100 mg/dl Optimal LDL 100-129 mg/dl Near or above optimal LDL 130-159 Borderline high LDL 160-189 High LDL greater than 189 mg/dl Very HighPerformed By: #### CMP, LIPD #### [facility] [address] [place], [place] [id number] in VLDL [Mass/Vol]25 mg/dLNormMarymount Hospital SpecialistComment on above:Performed By: #### CMP, LIPD #### [facility] [address] [place], [place] [id number].total/Cholesterol in HDL [Mass ratio]4 {ratio} NormalNoRegency Hospital [facility] SpecialistComment on above:Performed By: #### CMP, LIPD #### [facility] [address] [place], [place] [id number] [Mass/Vol]126 mg/qQLsemdm53-740Ygugktyz [place] [facility] SpecialistComment on above:Result Comment: TRIG ATPIII CLASSIFICATIONS TRIG less than 150 mg/dl Normal TRIG 150-199 mg/dl Borderline High TRIG 200-500 mg/dl High TRIG greather than 500 mg/dl Very HighPerformed By: #### CMP, LIPD #### [facility] [address] [place], [place] [id number] Vital Signs Date TimeVital SignValuePerforming XtysdxxxtIybimizg98-28-7371 14:24-0400Body coecby596.96 Jovitadludy Emerson MD Work Phone: 1(904)[address] [place], [place] 4440310-15-2025 14:24-0400 Body mass index (BMI) [Ratio]24.7 kg/n2UyannzStanley Emerson MD Work Phone: 1(119)[address] [place], [place] 4440310-15-2025 14:24-0400 Body apnwzb88.2 kgStanley Emerson MD Work Phone: 1(557)[address] [place], [place] 4440310-15-2025 14:24-0400 Diastolic blood laxbenuk64 mm[Hg]Stanley Emerson MD Work Phone: 1(975)[address] [place], [place] 4440310-15-2025 14:24-0400 Heart rate60 /Fior Emerson MD Work Phone: 1(785)[address] [place], [place] 4440310-15-2025 14:24-0400 Respiratory rate16 /Fior Emerson MD Work Phone: 1(402)[address] [place], [place] 4440310-15-2025 14:24-0400 SaO2% (BldA) [Mass fraction]96 %Stanley Emerson MD Work Phone: 1(031)[address] [place], [place] 4440310-15-2025 14:24-0400 Systolic blood ysismjqb081 mm[Hg]Stanley Emerson MD Work Phone: 1(551)[address] [place], [place] 4440306-11-2025 15:54-0400 Body athksr234.96 cmEharmony Emerson MD Work Phone: 1(450)[address] [place], [place] 4440306-11-2025 15:54-0400 Body mass index (BMI) [Ratio]25.7 kg/x3FzlrmcStanley Emerson MD Work Phone: 1(611)[address] [place], [place] 4440306-11-2025 15:54-0400 Body jagdgz05.77 kgStanley Emerson MD Work Phone: 1(758)[address] [place], [place] 4440306-11-2025 15:54-0400 Diastolic blood ovhbxawf21 mm[Hg]Stanley Emerson MD Work Phone: 1(141)[address] [place], [place] 4440306-11-2025 15:54-0400 Heart rate66 /Fior Emerson MD Work Phone: 1(232)[address] [place], [place] 4440306-11-2025 15:54-0400 Respiratory rate16 /Fior Emerson MD Work Phone: 1(166)[address] [place], [place] 4440306-11-2025 15:54-0400 SaO2% (BldA) [Mass fraction]99 %Stanley Emerson MD Work Phone: 1(316)[address] [place], [place] 4440306-11-2025 15:54-0400 Systolic blood ymhsqqdy83 mm[Hg]Stanley Emerson MD Work Phone: 1(360)[address] [place], [place] 4440305-22-2025 15:01-0400 Diastolic blood seponmpc49 mm[Hg]Stanley Emerson MD Work Phone: 1(467)[address] [place], [place] 2798105-22-2025 15:01-0400Systolic blood jwoennqu12 mm[Hg]Stanley Emerson MD Work Phone: 1(665)[address] [place], [place] 2798105-19-2025 17:50-0400Diastolic blood citaiwrx78 mm[Hg]Stanley Emerson MD Work Phone: 1(637)[address] [place], [place] 4440305-19-2025 17:50-0400 Heart rate66 /Fior Emerson MD Work Phone: 1(730)[address] [place], [place] 4440305-19-2025 17:50-0400 Respiratory rate20 /Fior Emerson MD Work Phone: 1(439)[address] [place], [place] 4440305-19-2025 17:50-0400 SaO2% (BldA) [Mass fraction]95 %Stanley Emerson MD Work Phone: 1(056)[address] [place], [place] 4440305-19-2025 17:50-0400 Systolic blood keozplez698 mm[Hg]Stanley Emerson MD Work Phone: 1(879)[address] [place], [place] 4440305-19-2025 14:20-0400 Body moalpsltsfe29.6 [degF]Stanley Emerson MD Work Phone: [facility]05-19-2025 13:50-0400 Inhaled oxygen flow rate2 L/minEharmony Emerson MD Work Phone: [facility]05-19-2025 12:16-0400 Body .96 cmEharmony Emerson MD Work Phone: [facility]05-19-2025 12:16-0400 Body pjaegz37.26 kgStanley Emerson MD Work Phone: [facility]05-16-2025 14:43-0400 Body jbviab997 cmRuby Montana MD Work Phone: [address] [place], [place] [address]05-16-2025 14:43-0400 Body mass index (BMI) [Ratio]25.68 kg/m2Ruby Montana MD Work Phone: [address] [place], [place] [address]05-16-2025 14:43-0400 Body .72 kgRuby Montana MD Work Phone: [facility]05-16-2025 14:43-0400 Diastolic blood cnvuilzl95 mm[Hg]Ruby Montana MD Work Phone: [address] [place], [place] [address]05-16-2025 14:43-0400 Heart rate75 /Tevin Montana MD Work Phone: [facility]05-16-2025 14:43-0400 Systolic blood vsnlswju12 mm[Hg]Ruby Montana MD Work Phone: [address] [place], [place] [address]05-13-2025 08:35-0400 Diastolic blood jatizlgw00 mm[Hg]Julio Cesar Gaspar MD Work Phone: [facility]05-13-2025 08:35-0400Heart rate66 /Mary Gaspar MD Work Phone: [facility]05-13-2025 08:35-0400Systolic blood qgwzzore939 mm[Hg]Julio Cesar Gaspar MD Work Phone: [facility]05-13-2025 07:05-0400Body iobxxneqacl22.1 [degF]Julio Cesar Gaspar MD Work Phone: [facility]05-13-2025 07:05-0400 Respiratory rate18 /minJulio Cesar Gaspar MD Work Phone: [facility]05-13-2025 07:05-6741PtT3% (BldA) [Mass fraction]94 %Julio Cesar Gaspar MD Work Phone: [facility]05-10-2025 16:30-0400Body svsvyz804 Milly Gaspar MD Work Phone: [facility]05-10-2025 16:30-0400Body mass index (BMI) [Ratio]22.47 kg/i0KnqgyiJulio Cesar Gaspar MD Work Phone: [facility]05-10-2025 16:30-0400Body jxzepr30.38 kgJulio Cesar Gaspar MD Work Phone: [facility]05-01-2025 09:38-0400Body vbatyignuvz50.6 [degF][facility]05-01-2025 09:38-0400 Diastolic blood mm[Hg][facility]05-01-2025 09:38-0400Heart rate72 /[facility]05-01-2025 09:38-0400Respiratory rate16 /[facility]05-01-2025 09:38-9216ZtZ0% (BldA) [Mass fraction]98 %[facility] 09-23-2024 09:38-0400Systolic blood kvkeicin436 mm[Hg][facility]04-29-2025 14:08-0400Body uniapg757 Mitra Emerson MD Work Phone: [facility] HospitalBrcimparbt55-55-5340 14:08-0400Body mass index (BMI) [Ratio]26.06 kg/q3LbgxxrStanley Emerson MD Work Phone: [facility] HospitalLfvgympbvg69-76-0265 14:08-0400Body szcbeo41.08 kgStanley Emerson MD Work Phone: [facility] HospitalKziuhuvywz98-51-9749 09:40-0400Body etoanx956 cm Teo Al MD Work Phone: 1(781)374[facility]14[facility]04-18-2025 09:40-0400 Body mass index (BMI) [Ratio]26.32 kg/t3ZugdyeTeo Al MD Work Phone: 1(780)[address]04-18-2025 09:40-0400 Body lbxnoj43.99 kgTeo Al MD Work Phone: 1(159)[address]04-18-2025 09:40-0400 Diastolic blood ytzwaokk37 mm[Hg]Teo Al MD Work Phone: 1(401)[address]04-18-2025 09:40-0400 Heart rate68 /minTeo Al MD Work Phone: 1(303)115-[address] [place], [place] 2566604-18-2025 09:40-0400 Systolic blood mm[Hg]Teo Al MD Work Phone: 1(906)[address]03-19-2025 10:26-0400 Body .96 Mitra Emerson MD Work Phone: [facility]03-19-2025 10:26-0400 Body mass index (BMI) [Ratio]26.1 kg/q9OsqdfvStanley Emerson MD Work Phone: 1(891)524-[address] [place], [place] 8941503-19-2025 10:26-0400 Body jgount81.19 Neftali Emerson MD Work Phone: 1(689)[address]03-19-2025 10:26-0400 Diastolic blood hxfdagva34 mm[Hg]Stanley Emerson MD Work Phone: 1(624)196-[address] [place], [place] 2542503-19-2025 10:26-0400 Heart rate65 /Fior Emerson MD Work Phone: [facility]03-19-2025 10:26-0400 Respiratory rate16 /Fior Emerson MD Work Phone: [facility]03-19-2025 10:26-0400 SaO2% (BldA) [Mass fraction]97 %Stanley Emerson MD Work Phone: [facility]03-19-2025 10:26-0400 Systolic blood gkvdkras234 mm[Hg]Stanley Emerson MD Work Phone: [facility]03-06-2025 11:13-0500 Body iprlat622 cmTeo Al MD Work Phone: [address] [place], [place] 9742903-06-2025 11:13-0500 Body mass index (BMI) [Ratio]26.19 kg/o2SwwqfxTeo Al MD Work Phone: 1(074)161-[address] [place], [place] 2566603-06-2025 11:13-0500 Body .53 kgTeo Al MD Work Phone: 5(488)217-[address] [place], [place] 2566603-06-2025 11:13-0500 Diastolic blood qbxnxviv64 mm[Hg]Teo Al MD Work Phone: [facility]03-06-2025 11:13-0500 Heart rate67 /minTeo Al MD Work Phone: 0(368)658-[address] [place], [place] 2566603-06-2025 11:13-0500 Systolic blood hwyopmsb71 mm[Hg]Teo Al MD Work Phone: 4(179)610-[address] [place], [place] 2566602-20-2025 10:31-0500 Blood Pressure LocationHEATHER OMALLEY [facility]02-20-2025 10:31-0500Diastolic blood acasesrz19 mm[Hg]HEATHER OMALLEY [facility]02-20-2025 10:31-0500Heart rate68 /minJENNIFER JOSSELIN [facility]02-20-2025 10:31-0500Respiratory rate18 /minJENNIFER JOSSELIN [facility]02-20-2025 10:31-0500Systolic blood vzfgruki76 mm[Hg]HEATHER JOSSELIN [facility]12-27-2024 09:47-0500Body cmTeo Al MD Work Phone: [facility]12-27-2024 09:47-0500 Body mass index (BMI) [Ratio]26.58 kg/p0BwnhtcTeo Al MD Work Phone: [address] [place], [place] 9742912-27-2024 09:47-0500 Body .89 kgTeo Al MD Work Phone: [address] [place], [place] 9742912-27-2024 09:47-0500 Diastolic blood twhayews45 mm[Hg]Teo Al MD Work Phone: [facility]12-27-2024 09:47-0500 Heart rate80 /minTeo Al MD Work Phone: [address] [place], [place] 9742912-27-2024 09:47-0500 Systolic blood srlpcotn300 mm[Hg]Teo Al MD Work Phone: [address] [place], [place] 9742912-19-2024 14:38-0500 Body vtntid710 Mitra Emerson MD Work Phone: [facility] HospitalEguhyvkwkx99-34-2625 14:38-0500Body mass index (BMI) [Ratio]26.06 kg/n7LnxzbgStanley Emerson MD Work Phone: 1(567)214-[address] [place], [place] [address]Dkelethcuc46-20-2738 14:38-0500Body asaqjs59.08 kgStanley Emerson MD Work Phone: 1(696)[facility]-[address] [place], [place] [address]Mrrufpazzq92-35-8359 14:38-0500Diastolic blood zfuksvgz86 mm[Hg]Stanley Emerson MD Work Phone: 1(512)[address] [place], [place] [address]Gqojpquaez71-08-9288 14:38-0500Heart rate77 /min Stanley Emerson MD Work Phone: 1(169)[facility] [place], [place] [address]Hqedczobwy80-24-0139 14:38-2320FqM6% (BldA) [Mass fraction]97 %Stanley Emerson MD Work Phone: 1(468)[address] [place], [place] 2798112-19-2024 14:38-0500Systolic blood mm[Hg]Stanley Emerson MD Work Phone: 1(680)[facility]-[address] [place], [place] [address]Cuvoffyvyj60-36-5084 11:14-0500Blood Pressure LocationFloyd SAMUELS [facility] [place] 441431-12-2024 11:14-0500Diastolic blood xnabgnjm33 mm[Hg]Katia SAMUELS [facility] [place] 441431-12-2024 11:14-0500Heart rate79 /minMetamara SAMUELS [facility] [place] 441431-12-2024 11:14-0500Systolic blood atxufjrx345 mm[Hg]Katia SAMUELS [facility] [place] 441430-24-2024 11:18-0400Body asmieg250 cmEharmony Emerson MD Work Phone: 1(404)[facility] [place], [place] [address]Uzvangkvwi22-92-9909 11:18-0400Body mass index (BMI) [Ratio]28.63 kg/w7YmjydfStanley Emerson MD Work Phone: 1(372)[facility]-[address] [place], [place] [address]Vwntttchye48-70-8710 11:18-0400Body eovivb055.15 kgStanley Emerson MD Work Phone: 1(128)[address] [place], [place] 2798110-24-2024 11:18-0400Heart rate82 /min Stanley Emerson MD Work Phone: 1(804)[address] [place], [place] 2798110-24-2024 11:18-3618WaI5% (BldA) [Mass fraction]97 %Stanley Emerson MD Work Phone: 1(728)[address] [place], [place] 2798110-14-2024 12:45-0400Body .96 cmMD Stanley Emerson Work Phone: 1(254)[address] [place], [place] 4440310-14-2024 12:45-0400 Body mass index (BMI) [Ratio]25.6 kg/m2MD Stanley Emerson Work Phone: 1(949)[address] [place], [place] 4440310-14-2024 12:45-0400 Body kzxqjirbjwb06.3 [degF]MD Stanley Emerson Work Phone: 1(379)[address] [place], [place] 4440310-14-2024 12:45-0400 Body aiqruu19.43 kgMD Stanley Emerson Work Phone: 1(072)[address] [place], [place] 4440310-14-2024 12:45-0400 Diastolic blood blzvxybs55 mm[Hg]MD Stanley Eemrson Work Phone: 1(144)[address] [place], [place] 4440310-14-2024 12:45-0400 Heart rate92 /minMD Stanley Emerson Work Phone: 1(391)[address] [place], [place] 4440310-14-2024 12:45-0400 SaO2% (BldA) [Mass fraction]99 %MD Stanley Emerson Work Phone: 1(903)[address] [place], [place] 4440310-14-2024 12:45-0400 Systolic blood guupsfww272 mm[Hg]MD Stanley Emerson Work Phone: 1(168)[address] [place], [place] 4440310-01-2024 15:19-0400 Body [facility]10-01-2024 15:19-0400Body mass index (BMI) [Ratio]26.32 kg/n1BhjbogAtoka [facility]10-01-2024 15:19-0400Body cjjoac78.99 kgCo[facility]10-01-2024 15:19-0400Diastolic blood mm[Hg][facility]10-01-2024 15:19-0400 Heart rate85 /minAt[facility]10-01-2024 15:19-0400Systolic blood naatgdrh574 mm[Hg][facility]09-24-2024 11:52-0400Body yybpbp679 cmEdludy Emerson MD Work Phone: 9(997)906-[address] [place], [place] [address]Icbdkrhkwy68-71-7516 11:52-0400Body mass index (BMI) [Ratio]28.63 kg/g6HzjgevStanley Emerson MD Work Phone: [facility] HospitalAxuxtrqocd79-66-4701 11:52-0400Body acvijb293.15 Neftali Emerson MD Work Phone: [facility] HospitalRfeprsqdty60-14-6804 09:13-0400Body ibuwjr134 cm Teo Al MD Work Phone: 6(140)118-[address] [place], [place] 2566609-17-2024 09:13-0400 Body mass index (BMI) [Ratio]26.32 kg/g9SljvivTeo Al MD Work Phone: 0(464)120-[address] [place], [place] 2566609-17-2024 09:13-0400 Body ugkwyl19.99 kgTeo Al MD Work Phone: 0(118)[address]09-17-2024 09:13-0400 Diastolic blood hqxrqfej50 mm[Hg]Teo Al MD Work Phone: 4(988)[address]09-17-2024 09:13-0400 Heart rate79 /minTeo Al MD Work Phone: 3(567)[address]09-17-2024 09:13-0400 Systolic blood kfvadiun559 mm[Hg]Teo Al MD Work Phone: [facility]09-11-2024 11:48-0400 Body .96 cmMD Stanley Emerson Work Phone: 1(035)[address]09-11-2024 11:48-0400 Body mass index (BMI) [Ratio]28.2 kg/m2MD Stanley Emerson Work Phone: 1(435)[address]09-11-2024 11:48-0400 Body qlnugefwzse71.1 [degF]MD Stanley Emerson Work Phone: 1(486)[address] [place], [place] 4440309-11-2024 11:48-0400 Body cocmby88.79 kgMD Stanley Emerson Work Phone: 1(738)[address] [place], [place] 4440309-11-2024 11:48-0400 Diastolic blood dujrnytq87 mm[Hg]MD Stanley Emerson Work Phone: 1(466)[address]09-11-2024 11:48-0400 Heart rate76 /minMD ludy Emerson Work Phone: 1(861)[address] [place], [place] 4440309-11-2024 11:48-0400 Respiratory rate18 /minMD Stanley Emerson Work Phone: 1(706)[address] [place], [place] 4440309-11-2024 11:48-0400 SaO2% (BldA) [Mass fraction]96 %MD Stanley Emerson Work Phone: 1(783)[address]09-11-2024 11:48-0400 Systolic blood pdkygsln37 mm[Hg]MD Stanley Emerson Work Phone: 1(758)[address] [place], [place] 4440308-30-2024 15:00-0400 Body ycjvcc829.96 cmMD Stanley Emerson Work Phone: 1(217)[address] [place], [place] 4440308-30-2024 11:19-0400 Diastolic blood mhrnofzs63 mm[Hg]MD Stanley Emerson Work Phone: 1(567)[address] [place], [place] 4440308-30-2024 11:19-0400 Heart rate64 /minMD Lesleeludy Smithchery Work Phone: 1(452)[address] [place], [place] 4440308-30-2024 11:19-0400 Systolic blood aiufdxve70 mm[Hg]MD Stanley Emerson Work Phone: 1(617)[address] [place], [place] 4440308-30-2024 11:13-0400 Respiratory rate20 /minMD Stanley Emerson Work Phone: 1(571)[address] [place], [place] 4440308-30-2024 11:13-0400 SaO2% (BldA) [Mass fraction]96 %MD Stanley Emerson Work Phone: 1(188)[address] [place], [place] 4440308-30-2024 04:44-0400 Body lojpdx05.6 kgMD Stanley Emerson Work Phone: 1(772)[address] [place], [place] 4440308-29-2024 23:41-0400 Body gnboovvgtlz22.2 [degF]MD Stanley Emerson Work Phone: 1(958)[address] [place], [place] 4440308-26-2024 10:00-0400 Inhaled oxygen flow rate2 L/minMD Stanley Emerson Work Phone: 1(491)[address] [place], [place] 4440308-21-2024 09:35-0400 Diastolic blood ywfyotsj89 mm[Hg]MD Stanley Emerson Work Phone: 1(476)[address] [place], [place] 4440308-21-2024 09:35-0400 Heart rate65 /minMD Stanley Emerson Work Phone: 1(049)[address] [place], [place] 4440308-21-2024 09:35-0400 Respiratory rate16 /minMD Stanley Emerson Work Phone: 1(036)[address] [place], [place] 4440308-21-2024 09:35-0400 SaO2% (BldA) [Mass fraction]97 %MD Stanley Emerson Work Phone: 1(401)[address] [place], [place] 4440308-21-2024 09:35-0400 Systolic blood sxamvoky053 mm[Hg]MD Stanley Emerson Work Phone: 1(547)244-[address] [place], [place] 2542508-21-2024 07:41-0400 Body aclelt999.96 cmMD Stanley Emerson Work Phone: 1(456)[address]08-21-2024 07:41-0400 Body awczqu849.32 kgMD Stanley Emerson Work Phone: 1(022)[address] [place], [place] 4440305-29-2024 10:57-0400 Body rzooto377.96 cmMD Stanley Emerson Work Phone: 1(342)[address] [place], [place] 4440305-29-2024 10:57-0400 Body mass index (BMI) [Ratio]28 kg/m2MD Lesleeludy Idania Work Phone: 1(425)[address] [place], [place] 4440305-29-2024 10:57-0400 Body enlphwzfixg97.8 [degF]MD Stanley Emerson Work Phone: 1(214)[address] [place], [place] 4440305-29-2024 10:57-0400 Body opygds43.1 kgMD Stanley Emerson Work Phone: 1(092)[address] [place], [place] 4440305-29-2024 10:57-0400 Diastolic blood dqhqimyy41 mm[Hg]MD Stanley Emerson Work Phone: 1(097)[address] [place], [place] 4440305-29-2024 10:57-0400 Heart rate71 /minMD Stanley Smithchery Work Phone: 1(665)[facility] [place], [place] 2542505-29-2024 10:57-0400 Respiratory rate18 /minMD Lesleeludy Idania Work Phone: 1(286)[facility] [place], [place] 2542505-29-2024 10:57-0400 SaO2% (BldA) [Mass fraction]98 %MD Stanley Emerson Work Phone: 1(618)[address] [place], [place] 4440305-29-2024 10:57-0400 Systolic blood zdeuploj614 mm[Hg]MD Stanley Emerson Work Phone: 1(528)[address] [place], [place] 4440304-25-2024 10:47-0400 Body .96 cmMD Lesleeludy Idania Work Phone: 1(164)609-[address] [place], [place] 2542504-25-2024 10:47-0400 Body mass index (BMI) [Ratio]28.6 kg/m2MD Stanley Emerson Work Phone: 1(334)[address] [place], [place] 4440304-25-2024 10:47-0400 Body ehulcchwsqe65.8 [degF]MD Stanley Emerson Work Phone: 1(327)[address] [place], [place] 4440304-25-2024 10:47-0400 Body qmsvja396.15 kgMD Lesleeludy Idania Work Phone: 1(151)[address] [place], [place] 4440304-25-2024 10:47-0400 Diastolic blood pprkicvp05 mm[Hg]MD Stanley Emerson Work Phone: 1(856)[address] [place], [place] 4440304-25-2024 10:47-0400 Heart rate64 /minMD Lesleeludy Idania Work Phone: 1(965)[address] [place], [place] 4440304-25-2024 10:47-0400 Respiratory rate16 /minMD Lesleeludy Idania Work Phone: 1(386)[address] [place], [place] 4440304-25-2024 10:47-0400 SaO2% (BldA) [Mass fraction]98 %MD Stanley Emerson Work Phone: 1(434)[facility] [place], [place] 2542504-25-2024 10:47-0400 Systolic blood tczrkoew045 mm[Hg]MD Stanley Emerson Work Phone: 1(554)638-[address] [place], [place] 2542502-05-2024 14:17-0500 Blood Pressure LocationPatamara SAMUELS [facility]02-05-2024 14:17-0500Diastolic blood popfynon66 mm[Hg]Katia SAMUELS [facility]02-05-2024 14:17-0500Heart rate70 /minKatia SAMUELS [facility]02-05-2024 14:17-0500Respiratory rate16 /minKatia SAMUELS [facility]02-05-2024 14:17-0500Systolic blood xfuhgipk826 mm[Hg]Katia SAMUELS [facility]11-21-2023 14:00-0500Body nmqfaw629.96 cmAreggie Griffin Other [facility] Other 582341-06-5974 14:00-0500Body mass index (BMI) [Ratio] 28.73 kg/m2Celia Francesaidee Other [employer] Other 11-21-2023 14:00-0500Body .8 [degF]Celia Starkscatherineaidee Other [employer] Other 11-21-2023 14:00-0500Body pgodnc098.52 kgCelia Francesaidee Other [employer] Other 11-21-2023 14:00-0500Diastolic blood gnpgkbyw276 mm[Hg]Celia Griffin Other [employer] Other 11-21-2023 14:00-0500Respiratory rate18 /minCelia Griffin Other [employer] Other 11-21-2023 14:00-0426FzI6% (BldA) [Mass fraction]96 % Celia Terezasaurav Other [employer] Other 11-21-2023 14:00-0500Systolic blood xmeiflqc082 mm[Hg] Celia Griffin Other [facility] Other [id number] 13:38-0400Blood Pressure LocationPatamara SAMUELS [facility]17-2023 13:38-0400Diastolic blood mm[Hg]Katia SAMUELS [facility]17-2023 13:38-0400Heart rate72 /minPatamara SAMUELS [facility]-17-2023 13:38-0400Systolic blood ejxvvypo318 mm[Hg]Katia [facility]S [facility]08-30-2023 09:57-0400Body nxauly545.96 cmEdludy Emerson Work Phone: [phone]-Rxsgw [facility] DO Work Phone: 1(828) 395-222908-30-2023 09:57-0400Body mass index (BMI) [Ratio] 27.35 kg/c6YxgssoStanley Emerson Work Phone: mp173-9649VW-Qrbxi [facility] 250 DO Work Phone: 1(356) 147-830908-30-2023 09:57-0400Body surface area Derived from formula2.23 k0RexupqStanley Emerson Work Phone: mp344-7148UE-Etcki [facility] 250 DO Work Phone: 1(339) 972-877108-30-2023 09:57-0400Body .62 kgStanley Emerson Work Phone: mp445-6451BY-Mwvgy [facility] 250 DO Work Phone: 1(213) 308-113408-30-2023 09:57-0400Diastolic blood qyhqznpd62 mm[Hg] Stanley Smithyer Work Phone: mp258-5983QJ-Tztlg [facility] 250 DO Work Phone: 1(441) 805-462108-30-2023 09:57-0400Heart rate72 /minEdludy Rich Hemeyer Work Phone: mp465-5985BL-Jgyck [facility] 250 DO Work Phone: 1(770) 140-808608-30-2023 09:57-0400Systolic blood bbwkrbex477 mm[Hg] Stanley Rich Hemeyer Work Phone: mp572-5835OK-Cqxth [facility] 250 DO Work Phone: 1(228) 750-881003-29-2023 14:30-0400Body .96 cmCarlene Kasper Other [employer] Other 03-29-2023 14:30-0400Body mass index (BMI) [Ratio] 26.32 kg/p3QatlmpCarlene Kasper Other [employer] Other 03-29-2023 14:30-0400Body azrgbtejmnh75.8 [degF]Carlene Kasper Other [employer] Other 03-29-2023 14:30-0400Body jascrp51.99 kgCarlene Kasper Other [employer] Other 03-29-2023 14:30-0400Diastolic blood quoyvrcg22 mm[Hg] Carlene Kasper Other [employer] Other 03-29-2023 14:30-2496SwG2% (BldA) [Mass fraction]96 % Carlene Kasper Other [employer] Other 03-29-2023 14:30-0400Systolic blood ygshtggj176 mm[Hg] Carlene Kasper Other [facility] Other 03-08-2023 07:25-0500Blood Pressure LocationPaTriangulate [facility]03-08-2023 07:25-0500Diastolic blood mm[Hg]Katia [facility]03-08-2023 07:25-0500Heart rate70 /minPaTriangulate [facility]03-08-2023 07:25-0500Respiratory rate16 /minPaTriangulate [facility]03-08-2023 07:25-0500Systolic blood ynliyimi344 mm[Hg]Katia [facility]03-02-2023 09:45-0500Body .96 cmMakaren Valentine Other [facility] Other 03-02-2023 09:45-0500Body mass index (BMI) [Ratio] 26.32 kg/z1VlrvucrMargarito Valentine Other [facility] Other 03-02-2023 09:45-0500Body rumfqmljuyv66.2 [degF] Margarito Valentine Other [employer] Other 03-02-2023 09:45-0500Body .99 kgMakaren Valentine Other [facility] Other 03-02-2023 09:45-0500Diastolic blood smbgthun71 mm[Hg] Margarito Topetesarina Other [facility] Other 03-02-2023 09:45-3573SeC6% (BldA) [Mass fraction]97 % Margarito Topetesarina Other [facility] Other 03-02-2023 09:45-0500Systolic blood mm[Hg] Margarito Topetesarina Other [facility] Other 02-08-2023 07:34-0500Body qkaemxehyli02.9 [degF]MD Stanley Emerson Work Phone: [facility]02-08-2023 07:34-0500 Diastolic blood fmbyghpc80 mm[Hg]MD Stanley Emerosn Work Phone: [facility]02-08-2023 07:34-0500 Heart rate87 /minMD Stanley Emerson Work Phone: [facility]02-08-2023 07:34-0500 Respiratory rate18 /minMD Stanley Emerson Work Phone: [facility]02-08-2023 07:34-0500 SaO2% (BldA) [Mass fraction]94 %MD Stanley Emerson Work Phone: [facility]02-08-2023 07:34-0500 Systolic blood uhzmzymd547 mm[Hg]MD Stanley Emerson Work Phone: [facility]02-08-2023 05:46-0500 Body hlmadr34 kgMD Stanley Emerson Work Phone: [facility]02-07-2023 16:27-0500 Inhaled oxygen flow rate6 L/minMD Stanley Emerson Work Phone: [facility]02-07-2023 10:06-0500 Body ibgfes792.42 cmMD Stanley Emerson Work Phone: [facility]02-07-2023 10:06-0500 Body mass index (BMI) [Ratio]27.3 kg/m2MD Stanley Emerson Work Phone: [facility]01-25-2023 10:00-0500 Body .96 cmMattlucy Valentine Other [facility] Other 01-25-2023 10:00-0500Body mass index (BMI) [Ratio] 26.32 kg/p8ZazmymuMargarito Valentine Other [employer] Other 01-25-2023 10:00-0500Body uxjlqjloofe33.8 [degF] [facility]ito Valentine [facility] 01-25-2023 10:00-0500Body aoswbi00.99 kgMattlucy Valentine Other [facility] [employer] Other 01-25-2023 10:00-0500Diastolic blood sygxsmor38 mm[Hg] Margarito Valentine Other [employer] Other 01-25-2023 10:00-3709QkF8% (BldA) [Mass fraction]95 % Margarito Valentine Other [employer] Other 01-25-2023 10:00-0500Systolic blood ganyylus193 mm[Hg] Margarito Valentine Other [employer] Other 01-18-2023 13:07-0500Body chikbr050.96 cmMD Stanley Emerson Work Phone: [facility]01-18-2023 13:07-0500 Body .44 kgMD Stanley Emerson Work Phone: [facility]01-12-2023 12:00-0500 Body wtzazq206.96 cmMattlucy Valentine Other [facility] Other 01-12-2023 12:00-0500Body mass index (BMI) [Ratio] 26.32 kg/y8LoexxnkMargarito Valentine Other [facility] Other 01-12-2023 12:00-0500Body ywrdhuvgtea85.2 [degF] Margarito Valentine Other [facility] 01-12-2023 12:00-0500Body lwqqeb22.99 kgMakaren Valentine Other [facility] Other 01-12-2023 12:00-0500Diastolic blood mm[Hg] Margarito Valentine Other [facility] Other 01-12-2023 12:00-2909PuP0% (BldA) [Mass fraction]98 % Margarito Valentine Other [facility] Other 01-12-2023 12:00-0500Systolic blood rnddzive742 mm[Hg] Margarito Valentine Other [facility] Other 01-10-2023 12:00-0500Body jxhkos335.96 Magen Griffin Other [facility] Other 01-10-2023 12:00-0500Body mass index (BMI) [Ratio] 26.42 kg/m2Celia Griffin Other [facility] Other 01-10-2023 12:00-0500Body tnwivrrqfzq28.6 [degF]Celia Griffin Other [facility] Other 01-10-2023 12:00-0500Body salthh04.35 kgCelia Griffin Other [facility] Other 01-10-2023 12:00-0500Diastolic blood kxpxasdq73 mm[Hg] Celia Griffin Other [facility] Other 01-10-2023 12:00-0500Respiratory rate20 /minCelia Griffin Other [facility] Other 01-10-2023 12:00-4005NqJ4% (BldA) [Mass fraction]98 % Celia Griffin Other [facility] Other 01-10-2023 12:00-0500Systolic blood pfdxcfew393 mm[Hg] Celia Griffin Other [facility] Other 01-09-2023 15:38-0500Body qmjknu998.96 cmEharmony Emerson Work Phone: [phone]-Ioatf [place] [facility] 250 DO Work Phone: 1(669) 460-411101-09-2023 15:38-0500Body mass index (BMI) [Ratio] 26.45 kg/u3PfsgddStanley Emerson Work Phone: mp097-8147GN-Drrgl [facility] 250 DO Work Phone: 1(633) 885-737101-09-2023 15:38-0500Body surface area Derived from formula2.2 q2OeizyzStanley Emerson Work Phone: 1(363) 488-5638220-8801YZ-Posnp [facility] 250 DO Work Phone: 1(718) 604-179701-09-2023 15:38-0500Body thrkun95.44 kgStanley Emerson Work Phone: 1(349) 766-7965018-8003BH-Ggdly [facility] DO Work Phone: 1(201) 715-358601-09-2023 15:38-0500Diastolic blood hlpdsymu53 mm[Hg] Stanley Emerson Work Phone: 1(624) 494-4912033-4460KM-Aywqg [facility] 250 DO Work Phone: 1(856) 421-887001-09-2023 15:38-0500Heart rate71 /minEharmony Emerson Work Phone: 1(804) 512-6339583-5930CB-Uqfux [facility] 250 DO Work Phone: 1(761) 558-898801-09-2023 15:38-0500Systolic blood xpotveln776 mm[Hg] Stanley Emerson Work Phone: 1(508) 131-2277404-5511GX-Lgsvy [facility] 250 DO Work Phone: 1(504) 456-549812-28-2022 11:53-0500Body hhpmiqxalpb91.8 [degF]MD Stanley Emerson Work Phone: [facility]12-28-2022 11:53-0500 Diastolic blood fllksned12 mm[Hg]MD Stanley Emerson Work Phone: [facility]12-28-2022 11:53-0500 Heart rate78 /minMD Stanley Emerson Work Phone: [facility]12-28-2022 11:53-0500 Respiratory rate16 /minMD Stanley Emerson Work Phone: [facility]12-28-2022 11:53-0500 SaO2% (BldA) [Mass fraction]97 %MD Stanley Emerson Work Phone: [facility]12-28-2022 11:53-0500 Systolic blood lpyaopvd712 mm[Hg]MD Stanley Emerson Work Phone: [facility]12-28-2022 06:02-0500 Body edetpu77.8 kgMD Stanley Emerson Work Phone: [facility]12-27-2022 11:48-0500 63 1Eharmony Emerson Work Phone: 1(324) [phone]-Iuzsr [facility] 250 DO Work Phone: Comment on above:[id number] 12:08-0500Body fpqcto500.96 cmMD Stanley Emerson Work Phone: [facility] Encounters Encounter DateEncounter TypeCare ProviderFacilityStart: 41-09-4485ruaxmxiihc Blanca X OrzechFacility:[place] evtart: 03-22-2025 End: 91-57-0688Sszpgvzml Result EncounterGeneric External Data ProviderNOMS External Department UnsolicitedStart: 03-22-2025 End: 29-15-3095Epnitvebz Result EncounterGeneric External Data ProviderNOMS External Department UnsolicitedStart: 03-18-2025 End: 08-89-9319Imivslcgx Result EncounterGeneric External Data ProviderNOMS External Department UnsolicitedStart: 03-18-2025 End: 73-66-0103Zyojgxzll Result EncounterGeneric External Data ProviderNOMS External Department UnsolicitedStart: 03-10-2025 End: 92-15-3040pcjqatirnbNzmrax X OrzechFacility:EU ueStart: 03-10-2025 End: 71-45-6003Rthnute encounter procedureAurora X Orzech [facility] Eva start: 03-09-2025 End: 26-54-4531icaqduaodwBpxfsv J Hemeyer MD Work Phone: [facility] Work Phone: Start: 03-09-2025 End: 74-15-4346Nuhklth encounter procedureCelia Griffin MD-[facility] Work Phone: Start: 02-28-2025 End: 56-49-3756Xvpzcnorl Result EncounterGeneric External Data ProviderNOMS External Department UnsolicitedStart: 02-28-2025 End: 58-25-5001Owranjqac Result EncounterGeneric External Data ProviderNOMS External Department UnsolicitedStart: 38-63-4402Wts-patient / Non-visitCelia Griffin MD-[facility] Work Phone: Start: 02-10-2025 End: 23-38-0210vjsatbjqjjZjgjat X OrzechFacility:EU [place]Start: 02-10-2025 End: 57-38-3995Skplzik encounter procedureAurora X Orzech [facility] start: 02-02-2025 End: 09-68-1747Ragjxofyg Result EncounterGeneric External Data ProviderNOMS External Department UnsolicitedStart: 02-02-2025 End: 59-56-4192Vxbpkellf Result EncounterGeneric External Data ProviderNOMS External Department UnsolicitedStart: 83-27-2295qbfdvosrbcRgeirf Monica Facility:[place]Start: 01-12-2025 End: 39-59-5236qmxhtutwziMfaucw TannaFacility:EU [place]Start: 01-12-2025 End: 12-32-9227Uehzzmq encounter procedureLadaniel Anderson [facility] start: 12-14-2024 End: 90-58-9987menmfnaodqHmgwjw TannaFacility:EU [place]Start: 12-14-2024 End: 65-26-4274Dpdctva encounter procedureEboni Anderson [facility] Eva start: 11-16-2024 End: 66-89-7082pxfrylbpqgDrremny R WATERSFacility:FTMCStart: 11-16-2024 End: 26-52-3292Okv Drop offPatamara Isabel SAMUELS [facility] Start: 11-16-2024 End: 37-52-9035kjytjrczzgMhnsyvz R WATERSFacility:EU [place]Start: 11-16-2024 End: 83-33-1235Uieyqoa encounter procedurePaaprilzahida SAMUELS [facility] Dominic Start: 11-09-2024 End: 90-44-4135Unozpu flowsEdward Emerson MD Work Phone: [facility] CI FM 100Start: 11-09-2024 End: 52-73-2810Wblktq flowsEdward Emerson MD Work Phone: [facility] CI FM 100Start: 11-09-2024 End: 38-45-7380Gtryfv outpatient visit 25 minutesEdludy Emerson MD Work Phone: [facility] CI FM 100Comment on above:Venous insufficiency of both lower extremities (Primary Dx); Venous stasis dermatitis of right lower extremity; 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 disturbance, psychotic disturbance, mood disturbance, or anxiety (HCC)Start: 11-09-2024 End: 81-74-7539apdwwdpsxzAGYDNY J HEMEYERNot AvailableStart: 11-03-2024 End: 45-01-3611cgrrkskipuFvvbrw J Hemeyer MD Work Phone: [facility] Work Phone: Start: 11-03-2024 End: 92-69-1506Zzasdsr encounter procedureStanley Emerson MD Work Phone: [facility] Work Phone: Start: 11-02-2024 End: 49-56-5849yhoombazhhNK-C HEATHER E JOSSELINFacility:EU [place]Start: 11-02-2024 End: 20-12-9460Nskhnsl encounter procedureJELINDAJASON OMALLEY [facility] Eva start: 10-27-2024 End: 55-76-3651Afpcqvnyf Result EncounterGeneric External Data ProviderNOMS External Department UnsolicitedStart: 10-27-2024 End: 95-79-2035Lpuwsisya Result EncounterGeneric External Data ProviderNOMS External Department UnsolicitedStart: 93-78-9820Wbo-patient / Non-visitEdludy Emerson MD Work Phone: [facility] Work Phone: Start: 10-14-2024 End: 23-96-0372Dllitbddkkjf care manage srvc 14 day dischargeEdludy Emerson MD Work Phone: [facility] CI FM 100Comment on above:Pneumonia of left lower lobe due to infectious organism; Encounter for examination following treatment at hospital; Lower extremity edema; Delirium due to another medical conditionStart: 10-14-2024 End: 57-45-5156baewnxfijeCEHDYE J HEMEYERNot AvailableStart: 10-13-2024 End: 51-13-9561Fgkbef OnlyEdludy Emerson MD Work Phone: [facility] CI FM 100Comment on above:Peripheral vascular disease (CMS/HCC) (Primary Dx); Presence of stent in arteryStart: 40-15-3422Bxh-patient / Non-visitEdludy Emerson MD Work Phone: [facility] Work Phone: Start: 22-74-6484ctykwehuxxITRN J [facility] Hospitaltart: 20-53-8051Qihzqnatl for preprocedural cardiovascular examinationRUBY Rich [facility] Start: 10-11-2024 End: 50-84-9350Tduhgdfyh to same day surgery Cyndi Emerson MD Work Phone: [facility]-Interventional Radiology Work Phone: Start: 10-11-2024 End: 09-54-7300ysiyoyqvsfCsegog J HemeyerFacility:[facility]art: 10-08-2024 End: 68-53-1976XcnjhxqtsmwchyuQspd J Quan MD Work Phone: [facility] Work Phone: Start: 10-08-2024 End: 05-57-8713Ppbzkf consultation new/estab patient 78 Tevin Montana MD Work Phone: [facility] CenterComment on above: Cardiomyopathy, ischemic (Primary [...] Pre-operative cardiovascular examination, supraventricular arrhythmiaStart: 10-08-2024 End: 33-54-2024Phaotxi encounter statusRuby Montana MD Work Phone: [facility] Work Phone: Start: 10-08-2024 End: 64-66-4399Gquwgenjyikzezbe arrhythmiaRuby Montana MD Work Phone: [facility] Work Phone: Start: 10-08-2024 End: 10-85-8189Ulyjyaunvhd arrhythmiaRuby Montana MD Work Phone: [facility] Work Phone: Start: 10-08-2024 End: 75-29-9926kezmantrxpNKTS J [facility] AmbulatoryStart: 10-08-2024 End: 46-40-6742Rzgzajytz for preprocedural cardiovascular examinationRUBY Rich [facility] AmbulatoryStart: 10-05-2024 End: 03-82-4401binutsyiurMwftvkw R WATERSFacility:EU [place]Start: 10-05-2024 End: 40-99-3692Zdmegey encounter procedurePatamara SAMUELS [facility] Dominic Start: 10-04-2024 End: 35-52-6039Xwohzatjjw and management of inpatientPuneet Hubert CASILLAS Work Phone: [facility] LabComment on above: ArrivedStart: 10-02-2024 End: 32-69-3337Eavpsirfm Result EncounterGeneric External Data ProviderNOMS External Department UnsolicitedStart: 10-02-2024 End: 86-51-9052Qkcvdpdjt Result EncounterGeneric External Data ProviderNOMS External Department UnsolicitedStart: 10-02-2024 End: 81-35-2554Vtvxqwotov and management of inpatientPalejandro Gaspar MD Work Phone: [facility] Med SurgComment on above:Lower extremity edema (Primary Dx); Delirium due to another medical condition; Cognitive and behavioral changesStart: 10-01-2024 End: 95-92-6461cbmxgufauwSrzazhy PayPromedica Bay [facility] Work Phone: Start: 10-01-2024 End: 05-55-2972Gscclbnx Elmira Bo MD Work Phone: [facility]-LAB Path Spec Eva HospStart: 26-11-6713sjlfjbdxhgRrwrft J HemeyerFacility:[facility] Centertart: 10-01-2024 End: 82-71-7706Exekjnpfn Result EncounterGeneric External Data ProviderNOMS External Department UnsolicitedStart: 10-01-2024 End: 41-75-4137Tjdxtdqzn Result EncounterGeneric External Data ProviderNOMS External Department UnsolicitedStart: 09-28-2024 End: 55-72-7090xpxbgljxdyXcqywi A DiabPromedica Bay Park Hospital Ctr Work Phone: Start: 09-28-2024 End: 77-69-4296Gswwwbio ReferredTalya Bo MD Work Phone: [facility]-LAB Path Spec Eva HospStart: 09-28-2024 End: 23-67-2133Kstwsqxhf Result EncounterGeneric External Data ProviderNOMS External Department UnsolicitedStart: 09-28-2024 End: 45-46-7217Culmnisfj Result EncounterGeneric External Data ProviderNOMS External Department UnsolicitedStart: 09-23-2024 End: 40-55-3001Vbitlnr encounter [facility]At[facility] V[facility] Work Phone: Start: 09-23-2024 End: 88-11-8167omraawonofOgmwgp J HemeyerMer[facility] Work Phone: Start: 09-21-2024 End: 78-46-3362Erbmpz outpatient visit 25 minutesStanley Emerson MD Work Phone: NOMS CI FM 100Comment on above: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 disturbance, psychotic disturbance, mood disturbance, or anxiety (CMS/HCC); Hallucinations; Need for prophylaxis against urinary tract infection; Indwelling urinary catheter present; Former smoker; Polypharmacy; OverweightStart: 09-21-2024 End: 33-48-3761Xfravpeloise Emerson MD Work Phone: NOMS CI FM 100Start: 09-21-2024 End: 77-82-2562Fbeqfaangelic Emerson MD Work Phone: [facility] 100Start: 09-21-2024 End: 64-51-9752kndxbcgpiiWNXKZT J HEMEYERNot AvailableStart: 09-10-2024 End: 70-47-6813Qvkphx outpatient visit 25 minutesTeo Al MD Work Phone: [facility] HospitalComment on above:Cardiomyopathy, ischemic; 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; S/P PTCA (percutaneous transluminal coronary angioplasty); ST elevation myocardial infarction (STEMI), unspecified artery (Multi); Paroxysmal atrial fibrillation (Multi); High risk medication use; Essential hypertension; Abdominal aortic aneurysm (AAA) greater than 5.5 cm in diameter in male; Dyslipidemia; Stage 3a chronic kidney disease (Multi); Former smoker; BMI 26.0-26.9,adultStart: 09-10-2024 End: 02-69-5863wwkekbfukxSJSIHD M [facility] AmbulatoryStart: 09-09-2024 End: 23-21-1599hbxnmmvbadRgjhph J GaleaFacility:EU BellevueStart: 09-02-2024 End: 46-39-2867Bciuxpeti Result EncounterGeneric External Data ProviderNOMS External Department UnsolicitedStart: 09-02-2024 End: 32-24-7304Lynhgmeng Result EncounterGeneric External Data ProviderNOMS External Department UnsolicitedStart: 08-23-2024 End: 44-11-6808Eyebsgaed Result EncounterGeneric External Data ProviderNOMS External Department UnsolicitedStart: 08-23-2024 End: 09-65-0331Szdgerkrz Result EncounterGeneric External Data ProviderNOMS External Department UnsolicitedStart: 08-12-2024 End: 69-02-0416amgmbanlgvVI-C JENNIFER E PERRYFacility:EU BellevueStart: 08-11-2024 End: 02-23-4352oxkxzlmqxgJayxcrYohan Emerson MD Work Phone: 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; S/P PTCA (percutaneous transluminal coronary angioplasty)Start: 08-06-2024 End: 49-08-0343cdvchrdjwoPIBQWVMercy Health Fairfield Hospitaltart: 25-15-9659Ltg-patient / Non-visitEdludy Emerson MD Work Phone: [facility] Work Phone: Start: 07-29-2024 End: 84-68-1657axgbklbmxyVqkfnav R WATERSFacility:FTMCStart: 07-29-2024 End: 01-78-1770tmwipraehbMgfyppi R WATERSFacility:UZMA SanduskyStart: 07-29-2024 End: 10-10-0045Qhjjtf outpatient visit 40 minutesTeo Al MD Work Phone: [facility] on above:Cardiomyopathy, ischemic (Primary Dx); 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; Paroxysmal atrial fibrillation (Multi); High risk medication use; S/P PTCA (percutaneous transluminal coronary angioplasty); ST elevation myocardial infarction (STEMI), unspecified artery (Multi); Infrarenal abdominal aortic aneurysm (AAA) without rupture ([facility]-HCC); Essential hypertension; Dyslipidemia; Stage 3a chronic kidney disease (Multi); Transient cerebral ischemia, unspecified type; Hematuria, unspecified type; Hyperthyroidism; BMI 26.0-26.9,adult; Former smokerStart: 07-29-2024 End: 98-35-1022tkjjriwlqvKFBDUS [facility] AmbulatoryStart: 07-23-2024 End: 88-59-8323Dfkjiywzf Result EncounterGeneric External Data ProviderNOMS External Department UnsolicitedStart: 07-23-2024 End: 87-55-8900Ojtdantiy Result EncounterGeneric External Data ProviderNOMS External Department UnsolicitedStart: 07-15-2024 End: 59-10-7120vthjinaeosNS-C HEATHER OMALLEYFacility:EU ueStart: 07-15-2024 End: 94-60-9696Noidsuc encounter procedureJEERICA OMALLEY [facility] start: 07-13-2024 End: 31-98-2112Vqmeqgfae Result EncounterGeneric External Data ProviderNOMS External Department UnsolicitedStart: 07-13-2024 End: 79-70-0494Lltvkqqvu Result EncounterGeneric External Data ProviderNOMS External Department UnsolicitedStart: 06-29-2024 End: 38-58-6203Ixfylpics Result EncounterSluh Sequeira MD Work Phone: noms External Department UnsolicitedStart: 06-29-2024 End: 75-01-9453Rhnafupnw Result EncounterSluh Sequeira MD Work Phone: noms External Department UnsolicitedStart: 06-25-2024 End: 53-77-3942Bbdyddwqc Result EncounterGeneric External Data ProviderNOMS External Department UnsolicitedStart: 06-25-2024 End: 50-68-2878Ljmnpkrrt Result EncounterGeneric External Data ProviderNOMS External Department UnsolicitedStart: 06-22-2024 End: 36-81-5361Wlotxmbud Mishel Emerson MD Work Phone: NOMS FM 100Start: 06-01-2024 End: 48-61-3456oxfbsczjtuXvnoxa X OrzechFacility:EU SanduskyStart: 06-01-2024 End: 63-56-7591Zujlibx encounter procedureAurora X Orzech [facility] Start: 05-25-2024 End: 48-48-3416Gcozetxwb Result EncounterGeneric External Data ProviderNOMS External Department UnsolicitedStart: 05-25-2024 End: 51-01-1613Exsdcdmii Result EncounterGeneric External Data ProviderNOMS External Department UnsolicitedStart: 05-21-2024 End: 73-03-1197RbsgrxLdfkde J Hemeyer MD Work Phone: [facility] FMComment on above:Simple chronic bronchitis (CMS/HCC)Start: 05-21-2024 End: 48-22-9788Rvyodfd encounter Kandy Emerson MD Work Phone: [facility]-Lab Main [place] Work Phone: Start: 05-21-2024 End: 42-68-4471Utbrqq outpatient visit 25 minutesTeo Al MD Work Phone: [facility] CenterComment on above:Paroxysmal atrial fibrillation (Multi); High risk medication use; 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; S/P PTCA (percutaneous transluminal coronary angioplasty); ST elevation myocardial infarction (STEMI), unspecified artery (Multi); Cardiomyopathy, ischemic; Essential hypertension; Dyslipidemia; Abdominal aortic aneurysm (AAA) greater than 5.5 cm in diameter in male (CMS-HCC); Transient cerebral ischemia, unspecified type; Stage 3a chronic kidney disease (Multi); BMI 26.0-26.9,adult; Former smokerStart: 05-21-2024 End: 45-94-3348jwszgkagkmWykolo IbrahimFacility:[facility] Centertart: 05-13-2024 End: 82-89-1389Wznhcwb encounter Kandy Emerson MD Work Phone: [facility] 100Comment on above:Encounter for Medicare annual wellness exam (Primary Dx); Advance directive discussed with patient; Encounter for screening for other disorder; Screening for alcohol problem; Former smoker; OverweightStart: 05-13-2024 End: 35-08-1974szhwnzuvrgLUYKSI J HEMEYERNot AvailableStart: 05-13-2024 End: 35-88-9798Bsidaj flowsEdward Emerson MD Work Phone: [facility] CI FM 100Start: 05-13-2024 End: 53-60-5618Uvrshd flowsEdward Emerson MD Work Phone: [phone] CI FM 100Start: 05-10-2024 End: 27-71-8669Gududf flowsEdward Emerson MD Work Phone: [phone] CI FM 100Start: 05-10-2024 End: 90-48-7737Arhjzi Reji Emerson MD Work Phone: N[facility] CI FM 100Start: 05-10-2024 End: 70-30-5259Fptkqg outpatient visit 40 minutesEdludy Emerson MD Work Phone: NOMS CI FM 100Comment on above:Essential hypertension, benign (CMS/HCC); Hypertensive nephropathy (CMS/HCC); Stage 3a chronic kidney disease (HCC) (CMS/HCC); Microalbuminuria; Panlobular emphysema (CMS/HCC); Simple chronic bronchitis (CMS/HCC); Mixed dyslipidemia (CMS/HCC); Polypharmacy; Mixed conductive and sensorineural hearing loss of both ears; Former smoker; OverweightStart: 05-10-2024 End: 36-70-7185rszuvqpxbrXNLZZL J HEMEYERNot AvailableStart: 05-06-2024 ambulatoryAlysha J GaleaFacility:EU BellevueStart: 05-05-2024 End: 66-71-6995tqbycoyrnsQfwcvg J GaleaFacility:EU [place]kyStart: 04-28-2024 End: 89-29-2920Itpukebkf Result EncounterGeneric External Data ProviderNOMS External Department UnsolicitedStart: 04-28-2024 End: 24-16-0210Ntrkdjscz Result EncounterGeneric External Data ProviderNOMS External Department UnsolicitedStart: 04-26-2024 End: 63-90-3257Xmmgbvucb Result EncounterGeneric External Data ProviderNOMS External Department UnsolicitedStart: 04-26-2024 End: 91-77-4927Vljqpggfw Result EncounterGeneric External Data ProviderNOMS External Department UnsolicitedStart: 04-06-2024 End: 44-98-1259cuqniktohqStjmkze R WATERSFacility:FTMCStart: 04-06-2024 End: 19-39-2072Ltv Drop offKatia SAMUELS [facility] Start: 04-06-2024 End: 03-86-4875enrmdylyawNyyfgoh R WATERSFacility:EU [place]kyStart: 04-06-2024 End: 88-11-2896Kotqqwf encounter procedureKatia SAMUELS [facility] [place] Start: 03-31-2024 End: 79-82-5171Arwvosdwu Result EncounterGeneric External Data ProviderNOMS External Department UnsolicitedStart: 03-31-2024 End: 53-24-5261Buaobwjap Result EncounterGeneric External Data ProviderNOMS External Department UnsolicitedStart: 03-24-2024 End: 37-43-2575Xhtrwcobt Result EncounterGeneric External Data ProviderNOMS External Department UnsolicitedStart: 03-24-2024 End: 33-26-4241Alyqenkxh Result EncounterGeneric External Data ProviderNOMS External Department UnsolicitedStart: 03-23-2024 End: 34-19-5596Xpmniqotc Result EncounterGeneric External Data ProviderNOMS External Department UnsolicitedStart: 03-23-2024 End: 44-17-3436Rvwlcakcy Result EncounterGeneric External Data ProviderNOMS External Department UnsolicitedStart: 03-18-2024 End: 87-83-5175Ptetxt Reji Emerson MD Work Phone: N[facility] CI FM 100Start: 03-18-2024 End: 26-29-6027Bcvecd Reji Emerson MD Work Phone: [facility] CI FM 100Start: 03-18-2024 End: 51-46-4075Fbmplu outpatient visit 15 minutesEdludy Emerson MD Work Phone: NOMS CI FM 100Comment on above:Pneumonia of right lower lobe due to infectious organismStart: 03-18-2024 End: 70-99-8392ghekyzsbulGLCZVC J HEMEYERNot AvailableStart: 03-08-2024 End: 59-92-6429Zhbskqe encounter procedureMD Stanley Emerson Work Phone: [facility] Urgent Care Tom Work Phone: Start: 03-08-2024 End: 29-05-4665twppcqxlffLI Stanley Emerson Work Phone: [facility] Work Phone: Start: 03-04-2024 End: 84-57-8004Bxjliyqao Result EncounterGeneric External Data ProviderNOMS External Department UnsolicitedStart: 03-04-2024 End: 13-93-8722Ncekdurld Result EncounterGeneric External Data ProviderNOMS External Department UnsolicitedStart: 03-02-2024 End: 86-46-6698mmvpblayvsAgcxgm X OrzechFacility:EU BellevueStart: 03-02-2024 End: 44-75-9010Rucijgv encounter procedureAurora X Orzech [facility] start: 02-24-2024 End: 72-69-8249Ezfsimgetlys / ancillary services [facility] HospitalComment on above:Paroxysmal atrial fibrillation (Multi)Start: 02-17-2024 End: 56-14-6155smlesyukrzXSYWDD J HEMEYERNot AvailableStart: 02-17-2024 End: 82-56-4410Ukuydj outpatient visit 15 minutesStanley Emerson MD Work Phone: NOMS CI FM 100Comment on above:Pneumonia of left lower lobe due to infectious organism (Primary Dx); Simple chronic bronchitis (CMS/HCC)Start: 02-10-2024 End: 80-26-9934Hkrris outpatient visit 40 minutesTeo Al MD Work Phone: [facility] on above: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 Work Phone: Start: 02-04-2024 End: 31-77-2602Trsqppt encounter procedureMD Stanley Emerson Work Phone: [facility] Nephrology [place] Work Phone: Start: 01-29-2024 End: 29-46-0383fvwnbjjjalVTBOIE J HEMEYERNot AvailableStart: 14-11-8147Xkr- patient / Non-visitMD Stanley Emerson Work Phone: [facility] Rehab and Spine Work Phone: Start: 01-90-9367xadxhpqtijBblcnl X OrzechFacility:EU BellevueStart: 88-63-7132Zit-patient / Non-visitMD Stanley Emerson Work Phone: [facility] Work Phone: Start: 58-32-7797Jpv-patient / Non-visitMD Stanley Emerson Work Phone: [facility] Pulmonary Disease Work Phone: Start: 01-16-2024 End: 60-09-5738Aeazyogztq and management of inpatientMD Stanley Emerson Work Phone: [facility]-4 [place] [facility] Work Phone: Start: 70-51-9495Sco-patient / Non-visitMD Stanley Emerson Work Phone: [facility] Gastroenterology Work Phone: Start: 01-14-2024 End: 88-32-2218Qnasoxjvw to same day surgery centerMD Stanlye Emerson Work Phone: [facility]-Digestive Health Work Phone: Start: 01-14-2024 End: 58-89-3996dkjzplvjlfPH Stanley Emerson Work Phone: [facility] Work Phone: Start: 12-26-2023 End: 85-97-7868Fwaaqro encounter procedureMD Stanley Emerson Work Phone: [facility]Lab [facility]tart: 12-26-2023 End: 78-56-0411algwthuohnRO Stanley Emerson Work Phone: [facility] Work Phone: Start: 12-25-2023 End: 62-29-0833pkyoyhhrhlNnbfdk J GaleaFacility:EU BellevueStart: 12-25-2023 End: 10-24-7508Xnjdmup encounter procedureAlysha J Galea [facility] start: 11-19-2023 End: 28-43-4382porkynvdczDHOGVW Layla IDANIANot AvailableStart: 11-04-2023 End: 12-18-3424Havicef encounter procedureAurora Jomar Boles [facility] start: 10-22-2023 End: 43-29-7019obwgkjfbivQI Edludy Smithyer Work Phone: [facility] Work Phone: Start: 10-22-2023 End: 97-76-6806Wgjdyyy encounter procedureMD Edludy Hemeyer Work Phone: [facility] Nephrology Work Phone: Start: 55-14-0741Xlj-patient / Non-visitMD Edludy Hemechery Work Phone: [facility] Work Phone: Start: 10-07-2023 End: 76-18-7253Bbmotfu encounter procedurePatriczahida Macias [employer]To[employer] [facility] Start: 10-03-2023 End: 36-94-4103Kiw Drop offPatamara Macias [facility] Start: 10-03-2023 End: 08-16-1460Mlgxskn encounter procedurePatrick Isabel [employer]To[facility] Start: 82-37-4342Tln-patient / Non-visitMD Edludy Hemeyer Work Phone: [facility] Nephrology Work Phone: Start: 16-24-7844DqjthytgtizgiqfRR Edludy Hemeyer Work Phone: [facility]: 09-18-2023 End: 02-94-6056hvezjmcjrkHO Edludy Rich Hemeyer Work Phone: [facility] Work Phone: Start: 09-18-2023 End: 43-31-5585Jztljlh encounter procedureMD Stanley Emerson Work Phone: [facility] V[facility] Surgery Work Phone: Start: 09-11-2023 End: 67-61-8717Npbptrf encounter procedurePatriczahida SAMUELS [facility] Start: 08-18-2023 End: 22-47-3611qxwsfhmnflYK Stanley Emerson Work Phone: [facility] Work Phone: Start: 08-18-2023 End: 40-54-4134Ubhuiub encounter procedureMD Stanley Emerson Work Phone: [facility]-CT Scan Main [place] Work Phone: Start: 08-15-2023 End: 43-10-7813Oysoctf encounter procedurePatriczahida Macias SAMUELS [facility] Start: 07-31-2023 End: 22-22-1005Izafwgejr Result EncounterGeneric External Data ProviderNOMS External Department UnsolicitedStart: 07-31-2023 End: 36-72-1162Pcqtyxmfi Result EncounterGeneric External Data ProviderNOMS External Department UnsolicitedStart: 06-30-2023 End: 70-29-0498Dmyubok encounter procedurePatriczahida Macias SAMUELS [facility] start: 06-16-2023 End: 10-76-7540Btmntmk encounter procedurePatriczahida Macias SAMUELS [facility] start: 06-10-2023 End: 40-18-6308Eweydvt encounter procedurePatamara Macias SAMUELS [facility] Start: 05-06-2023 End: 72-46-8392ivlncvvozbFqii Bakhous Other [facility] Rx[facility] Containment Other Start: 21-69-2464Myylxcofi encounterAziz BakhousFPG NephrologyStart: 04-16-2023 End: 34-03-7712dvunzcylvrQqyd Bakhous Other [facility] Containment Other Start: 68-99-6301Mdddswunl encounterAziz BakhousFPG NephrologyStart: 04-15-2023 End: 46-58-1048socbgtciyfOccg Bakhous Other [place] [employer] Containment Other Start: 24-99-7990Njdgsr outpatient visit 25 minutes Aziz BakcatherinesFPG NephrologyStart: 04-08-2023 End: 73-25-8025efulhdessaHS Stanley Smithchery Work Phone: [facility] Work Phone: Start: 04-08-2023 End: 33-77-3001Nhldrih encounter procedureMD Stanley Emerson Work Phone: [facility]-Lab [facility] Rocktart: 03-11-2023 End: 34-21-9123Jrd Drop offPatamara Macias SAMUELS [facility] Start: 03-11-2023 End: 37-51-2947Pgyepxp encounter procedurePatamara Macias SAMUELS [facility] start: 74-20-6859Mqgsmq outpatient visit 25 minutes Stanley Emerson Work Phone: [phone]-Jorgf [facility] 250 DO Work Phone: Start: 11-04-2626ycoiaxgchmGc. Teo Choudharyestrella QuilesAl Facility:[id number]: 12-25-2022 End: 57-83-0500Zbykgju encounter procedurePatriczahida Macias SAMUELS [facility] Start: 12-10-2022 End: 37-42-0190Jbc Drop offPatamara Macias SAMUELS [facility] Start: 12-10-2022 End: 03-91-4869Lruoraa encounter procedurePatriczahida Macias SAMUELS [facility] Start: 10-04-2022 End: 87-93-2744Xfadcfm encounter procedurePatriczahida Isabel SAMUELS [facility] Start: 09-18-2022 End: 34-23-4715Dxwftqg encounter procedurePatriczahida Macias SAMUELS [facility] Start: 09-15-2022 End: 61-39-5341basxdrghvwNK STANLEY EMERSON .Facility:F9Ifstp: 09-12-2022 End: 72-30-6993vbllxahrkgCW STANLEY EMERSON .Facility:V5Xyqzo: 09-08-2022 Encounter for preprocedural laboratory examinationSycamore Medical Centertart: 09-04-2022 End: 88-30-4884zgpjosbckbIV STANLEY EMERSON .Facility:V0Suqoq: 09-04-2022 Encounter for preprocedural cardiovascular examinationDR KATIA SAMUELS .[facility]: 09-02-2022 End: 12-07-8723ltlbgwslkfZY STANLEY EMERSON .Facility:R2Jjzcl: 09-02-2022 End: 32-49-8157Awdncqaqd for preprocedural laboratory examinationDR STANLEY EMERSON .Facility:Q6Ecscp: 09-02-2022 End: 32-30-4843nsettduigfGE STANLEY EMERSON .Facility:W9Pglib: 09-02-2022 End: 49-16-5164Qxtiutqfj for preprocedural cardiovascular examinationDR STANLEY EMERSON .Facility:G4Eanbf: 08-21-2022 End: 28-61-9394ywepsgdmmjYvhecm Ruttino Other [facility] Containment Other Start: 88-54-7120Seflde-up encounterCarlene Thomas Vascular SurgeryStart: 08-16-2022 End: 74-11-1289rwpjnhwnmkNA Edward J Hemeyer Work Phone: [facility] Work Phone: Start: 08-16-2022 End: 54-43-7845Ogdoycd encounter procedureMD Stanley Emerson Work Phone: [facility]-CT Scan Main [place] Work Phone: Start: 07-31-2022 End: 61-75-5357Yygkvpd encounter procedurePatamara SAMUELS [facility] [place] Start: 07-25-2022 End: 77-80-9194wmeyxpabboDunhnvw Langenberg Other [facility] Containment Other Start: 15-89-0277Moxvhz follow up visit related to original pxMargarito ValentineFPG Vascular SurgeryStart: 07-24-2022 End: 73-91-7976zhcmerjhktWH Stanley Emerson Work Phone: [facility] Work Phone: Start: 07-24-2022 End: 04-03-5278Ijkffqs encounter procedureMD Stanley Emerson Work Phone: [facility]-MRI Main [place] Work Phone: Start: 07-02-2022 End: 06-40-5678Mmqtoojsod and management of inpatientMD Stanley Emerson Work Phone: [facility]-4 [facility] Work Phone: Start: 06-21-2022 End: 49-29-9839Hqchzbj encounter procedureMD Stanley Emerson Work Phone: [facility] Saz-Jrr-Chudgxse Testing Work Phone: Start: 06-19-2022 End: 76-00-8170fdndnsbxrvDqcvlrw [place] Other [place] [employer]ment Other Start: 38-04-6438Ckkvzt outpatient visit 25 minutes Margarito Juarez Vascular SurgeryStart: 06-12-2022 End: 10-41-2902fhgfqetkmiCV Stanley Emerson Work Phone: [facility] Work Phone: Start: 06-12-2022 End: 72-24-3522Ecgfnap encounter procedureMD Stanley Emerson Work Phone: [facility]-CT Scan Main [place] Work Phone: Start: 06-11-2022 End: 87-91-3788Xyzugcz encounter procedureJEERICA OMALLEY [facility] start: 06-06-2022 End: 50-06-7591hcvqwwjubgPxqmlbl Lang[place] Other [facility] Containment Other Start: 69-30-8112Nyzdwb outpatient visit 25 minutes Margarito ValentineFPG Vascular SurgeryStart: 06-04-2022 End: 00-29-2740wnhfpnmmmpQyfk Bakhous Other [facility] Containment Other Start: 43-33-8129Ubkknk outpatient visit 25 minutes Celia GriffinFPG Nephrology ClydeStart: 56-52-9397Ivvunf outpatient visit 25 minutesStanley Rich Idania Work Phone: [phone]-Culvc [facility] 250 DO Work Phone: Start: 33-86-2262juiuevytmeZg. Stanley Emerson Facility:[id number]: 56-10-0193oxxnwcysvtMn. Stanley EmersonFacility:9090 Start: 48-61-2491gsojnftnhsQc. Stanley EmersonFacility:9090Start: 73-92-4773hsgsnwujmkAy. Teo AlFacility:9090Start: 05-18-20[address] Teo AlFacility:9090Start: 04-98-7393cmranelrujFc. Stanley EmersonFacility:9090Start: 09-84-8096ZndyfjgtgcmbaerRK Stanley Emerson Work Phone: [facility] HospitalComment on above: Problem List clean-up per request of Phys. EHR CmteStart: 46-66-6321qxlrwyfrys Dr. Teo AlFacility:9090Start: 05-16-2022 End: 66-19-6638Epwhqrdma for preprocedural cardiovascular examinationMD Stanley Emerson Work Phone: [facility]: 05-16-2022 End: 65-25-0583Ulncnrmefq and management of inpatientMD Stanley Emerson Work Phone: [facility]-4 [place] [facility] Work Phone: Start: 05-16-2022 End: 23-37-2433kzbhsgigqkBM LESLEELUDY SMITHCHERY .Facility:D8Kdswm: 05-15-2022 End: 32-67-2766jqssienabuKN STANLEY SMITHCHERY .Facility:G4Grokn: 01-04-2022 End: 56-38-0051zvkyncqbnrVL STANLEY IDANIA .Facility:P8Fdrfezn encounter status Stanley Smithchery Work Phone: [phone]-Lvbqj [facility] 250 DO Work Phone: End: 44-98-5800Gtspejt encounter statusStanley Emerson Work Phone: [phone]-Elxuh [facility] 250 DO Work Phone: Procedures DateProcedureProcedure DetailPerforming ClinicianStart: 91-10-9357TI CHEST 2V Generic External Data ProviderStart: 36-15-9096YUV BASIC METABOLIC PANELGeneric External Data ProviderStart: 01-95-0921XZH LIPID PROFILE (FASTING)Generic External Data ProviderStart: 59-57-8123DRU THYROID STIM HORMONEGeneric External Data ProviderStart: 19-90-7371IUK ASTGeneric External Data ProviderStart: 17-03-9801IZWP CBC WITH PLATELET NO DIFFERENTIALGeneric External Data Provider Start: 25-38-8297UMR HEMOGLOBINGeneric External Data ProviderStart: 11-16-2024 CystoscopyPatrick SAMUELS Start: 52-74-2687BWNT CBC WITH PLATELET NO DIFFERENTIAL Generic External Data ProviderStart: 06-00-2086YI Angiogram w/TLA/Stent Left Leg (Left)Stanley Emerson MD Work Phone: Start: 72-41-0990Xnxub of magnesiumKim Aidee Pink MD Work Phone: Start: 02-37-4910BDRUJ METABOLIC PANEL W/ REFLEX TO MG FOR LOW KKim Aidee Pink MD Work Phone: Start: 29-64-3810Qzo routine ecg w/least 12 lds w/i&r Waqar Pink MD Work Phone: Start: 38-74-8867Ehl-scan xtr veins complete bilateral studyTarif Boni CASILLAS Work Phone: Start: 32-33-8197Ctnxp centrifuge enhncd id imfluor stain eaWaqar Pink MD Work Phone: Start: 90-77-5410PPBQZ METABOLIC PANEL W/ REFLEX TO MG FOR LOW KKim Aidee Pink MD Work Phone: Start: 33-32-0355Dhcrylowmmb timeWaqar Pink MD Work Phone: Start: 92-36-5637Bthdd of ferritinWaqar Pink MD Work Phone: Start: 89-81-6870DOPBF METABOLIC PANEL W/ REFLEX TO MG FOR LOW KKim Aidee Pink MD Work Phone: Start: 94-65-5167QBMSHKJ B12 & FOLATEWaqar Pink MD Work Phone: Start: 10-02-2024 End: 23-96-8986Qobgqkd bacterial quanttative colony count urineWaqar Pink MD Work Phone: Start: 87-93-1035QDRI CULT,URINEGeneric External Data ProviderStart: 65-20-4900Penuc s aureus methicillin resist amp probe tqWaqar Pink MD Work Phone: Start: 22-57-8033PQSJBCOCVTK PANEL, MOLECULAR, WITH COVID-19Waqar Pink MD Work Phone: Start: 36-73-8857Twzblgde mycoplsmWaqar Pink MD Work Phone: Start: 09-55-3675Atslq metabolic panel calcium total Waqar Pink MD Work Phone: Start: 34-93-0939Dfydktpfhrf [Units/volume] in Serum or PlasmaRuby Montana MD Work Phone: Start: 33-14-3987CGLLY CULTURE - FRMCGeneric External Data ProviderStart: 32-76-9904Ofexa Angel Emerson MD Work Phone: Start: 02-21-8120JASVU CULTURE - FRMCGeneric External Data ProviderStart: 42-92-0994NclrhEfra Bo MD Work Phone: Start: 57-24-9935Czmtr dip stick/tablet rgnt non-auto w/o micrscpEdludy Emerson MD Work Phone: Start: 47-64-9156Svr routine ecg w/least 12 lds w/i&r Teo Al MD Work Phone: Start: 41-36-5545OEW LIPID PROFILE (FASTING)Generic External Data ProviderStart: 00-34-1031PTP THYROID STIM HORMONEGeneric External Data ProviderStart: 66-36-4140TWAIsauftr External Data ProviderStart: 07-29-2024 Ecg routine ecg w/least 12 lds w/i&Jackelin Al MD Work Phone: Start: 56-53-0915BFWFdqbxej External Data Provider Start: 45-46-7705AVM THYROID STIM HORMONEGeneric External Data ProviderStart: 72-31-2900ATBFIZ PROTHROMBIN TIME INR W/O Garry Sequeira MD Work Phone: Start: 36-95-3595IZZHfnpswc External Data Provider Start: 48-56-6487NELLsdjxck External Data ProviderStart: 81-14-3562Uib routine ecg w/least 12 lds w/i&Jackelin Al MD Work Phone: Start: 92-02-2659PUHGF CULTURE 2Generic External Data ProviderStart: 42-12-8740HZHMH CULTURE 1Generic External Data ProviderStart: 12-44-6505CRZLfwtkjq External Data ProviderStart: 43-00-3118Kfjutlyg cystoscopy Katia SAMUELS Start: 61-46-3000XDVQlsagdw External Data Provider Start: 57-90-6517SLQZxjvvit External Data ProviderStart: 77-39-6297FQ PULMONARY FUNCTION TESTGeneric External Data ProviderStart: 50-22-8487WXD HEMOGLOBIN Generic External Data ProviderStart: 20-72-3195Gzuwf Strep (POC) Lesleeludy Idania Work Phone: Start: 27-43-7431Eysgr chest X-rayMD Stanley Emerson Work Phone: Start: 92-95-7814JEZ HEMOGLOBINGeneric External Data ProviderStart: 17-55-1893Bnt routine ecg w/least 12 lds w/i&rHassajoey Al MD Work Phone: Start: 54-70-6463Apkqnfdq identified in Urine by CultureMI Stanley Emerson Work Phone: Start: 87-95-6900Xnunv cultureMI Stanley Emerson Work Phone: Start: 91-09-3528Ljrhrera identified in Urine by CultureMI Stanley Emerson Work Phone: Start: 93-08-4962Tdiif cultureMD Stanley Emerson Work Phone: Start: 51-04-6853Uljkl chest X-rayMD Stanley Emerson Work Phone: Start: 64-63-3218XS Iliac/Fem w/LHCMD Stanley Emerson Work Phone: Start: 97-82-5976XT LHC & COR AngioMD Stanley Emerson Work Phone: Start: 88-87-1284HJ PCI AMI 1st Vessel LAD DESMD Stanley Emerson Work Phone: Start: 60-34-2012QnafeawyjplAV Stanley Emerson Work Phone: Start: 28-11-2405Edvhpydm cystoscopyPatrick SAMUELS Start: 23-70-4269JU of abdomen and pelvis without contrastMD Stanley Emerson Work Phone: Start: 69-52-3849Avc-scan xtr veins unilateral/limited studyGeneric External Data ProviderStart: 54-04-3062Ofjhovuxro, device (physical object)Katia SAMUELS Start: 08-95-5336Eqctggmoabmur resection of bladder neoplasmPatamara SAMUELS Start: 92-70-8743Ujisskmt tomography angiography of abdominal and/or pelvic blood vesselMD Stanley Emerson Work Phone: Start: 17-39-5027YvnxtpznglVtmdsmy WATERS Start: 18-76-8879Lfnanfbnzprk repair of abdominal aortic aneurysmMD Stanley Emerson Work Phone: Start: 96-68-2315Nojtguhx tomography angiography of abdominal and/or pelvic blood vesselMD Stanley [employer] Work Phone: Start: 22-82-8792Bohjpljxwojc myocardial perfusion stress studyMD Stanley [employer] Work Phone: Start: 04-42-2481Grt and Parasite Result 1MD Stanley [employer] Work Phone: Start: 61-58-7753Fsy OR parasites identificationMD Stanley [employer] Work Phone: Start: 56-75-3419Rhqot cultureMD Stanley [employer] Work Phone: Cataract surgeryEdludy Rich [employer] Work Phone: Insertion of stent in inferior vena cavaEdludy [employer] Work Phone: Operation on bladderEdludy Rich [employer] Work Phone: Urinary catheter placementEdludy Atreaon Work Phone: NEGATED: Highlighted row has not occurred!Colonoscopy Stanley Rich [employer] Work Phone: Plan of Treatment DateCare ActivityDetailAuthorStart: 27-49-7316Ovvlcmm stimulating hormone measurementTSHarper County Community Hospital – BuffaloStart: 08-06-2025 EchocardiographyEchocardiogramUnDetwiler Memorial HospitalStart: 05-13-2025 Medicare Annual Wellness (AWV)Medicare Annual Wellness (AWV)[facility] Start: 05-10-2025 End: 04-47-7435Owuhjzj encounter nofsztnez48/16/2025 2:00 PM EST Office Visit MARSHAL Kaur [facility] [address] [place] [address] Stanley Emerson MD [address] [place] [address] (Fax)NOMAidee Kaur [facility] MedicineStart: 03-29-2025 End: 50-02-2762Uuhgukn encounter fznwghkep83/04/2025 11:00 AM EST Office Visit [facility] [address] [facility] [address] [place] [address] Teo Al MD [address] [facility] [address] [place] [address] 965- [facility]Start: 03-21-2025 End: 85-00-1032Pslyiqek Pulmonary Function Test (Spirometry/DLCO/Lung Volumes) Complete Pulmonary Function Test (Spirometry/DLCO/Lung Volumes) PFT Routine Paroxysmal atrial fibrillation (Multi) High risk medication use Expected: 03/21/2025 (Approximate), Expires: 05/21/2025[facility] Work Phone: Comment on above:Expected: 03/21/2025 (Approximate), Expires: 05/21/2025Start: 03-21-2025 End: 90-77-5329CD Chest 2 ViewsXR chest 2 views Imaging Routine Paroxysmal atrial fibrillation (Multi) High risk medication use Expected: 03/21/2025, Expires: 05/21/2025[facility] Work Phone: Comment on above:Expected: 03/21/2025, Expires: 05/21/2025Start: 03-12-2025 End: 36-19-0086Zsekjqfr Pulmonary Function Test (Spirometry/DLCO/Lung Volumes) Complete Pulmonary Function Test (Spirometry/DLCO/Lung Volumes) PFT Routine Paroxysmal atrial fibrillation (Multi) High risk medication use Expected: 03/12/2025 (Approximate), Expires: 09/10/2025[facility] Work Phone: Comment on above:Expected: 03/12/2025 (Approximate), Expires: 09/10/2025Start: 01-29-2025 End: 07-81-0823Uehukrcju aminotransferase [Enzymatic activity/volume] in Serum or Plasma by With P-5'-PAspartate Aminotransferase Lab Routine Paroxysmal atrial fibrillation (Multi) High risk medication use Expected: 01/29/2025, Expires: 07/29/2025[facility] Work Phone: Comment on above:Expected: 01/29/2025, Expires: 07/29/2025Start: 01-29-2025 End: 34-03-2127Tjmdx metabolic 2000 panel - Serum or PlasmaBasic Metabolic Panel Lab Routine Paroxysmal atrial fibrillation (Multi) High risk medication use Ex pected: 01/29/2025, Expires: 07/29/2025[facility] Work Phone: Comment on above:Expected: 01/29/2025, Expires: 07/29/2025Start: 01-29-2025 End: 37-73-0548Enigyjdm Pulmonary Function Test (Spirometry/DLCO/Lung Volumes) Complete Pulmonary Function Test (Spirometry/DLCO/Lung Volumes) PFT Routine Paroxysmal atrial fibrillation (Multi) High risk medication use Expected: 01/29/2025 (Approximate), Expires: 07/29/2025[facility] Work Phone: Comment on above:Expected: 01/29/2025 (Approximate), Expires: 07/29/2025Start: 01-29-2025 End: 72-31-9378Vynqm 1996 panel - Serum or PlasmaLipid Panel Lab Routine Dyslipidemia Expected: 01/29/2025 (Approximate), Expires: 07/29/2025[facility] Work Phone: Comment on above:Expected: 01/29/2025 (Approximate), Expires: 07/29/2025Start: 01-29-2025 End: 14-58-2988Rwjzrqfertv [Units/volume] in Serum or PlasmaThyroid Stimulating Hormone Lab Routine Paroxysmal atrial fibrillation (Multi) High risk medication use Expected: 01/29/2025, Expires: 07/29/2025[facility] Work Phone: Comment on above:Expected: 01/29/2025, Expires: 07/29/2025Start: 01-29-2025 End: 50-27-2725MH Chest 2 ViewsXR chest 2 views Imaging Routine Paroxysmal atrial fibrillation (Multi) High risk medication use Expected: 01/29/2025 (Approximate), Expires: 07/29/2025[facility] Work Phone: Comment on above:Expected: 01/29/2025 (Approximate), Expires: 07/29/2025Start: 79-95-2326LNEBQ-19 Vaccine ( season)COVID- 19 Vaccine ( season)[facility] HealthcareStart: 42-04-5088Flaljieta vaccinationInfluenza Vaccine (#1)[facility] HealthcareStart: 01-15-2025 EchocardiographyEchocardiogramUnDetwiler Memorial HospitalStart: 11-19-2024 End: 45-68-0049Pajqrkz aminotransferase [Enzymatic activity/volume] in Serum or Plasma by With P-5'-PAlanine Aminotransferase Lab Routine Paroxysmal atrial fibrillation (Multi) High risk medication use Expected: 11/19/2024 (Approximate), Expires: 05/21/2025[facility] Work Phone: Comment on above:Expected: 11/19/2024 (Approximate), Expires: 05/21/2025Start: 11-19-2024 End: 61-42-9401Asvwawuoy aminotransferase [Enzymatic activity/volume] in Serum or Plasma by With P-5'-PAspartate Aminotransferase Lab Routine Paroxysmal atrial fibrillation (Multi) High risk medication use Expected: 11/19/2024 (Approximate), Expires: 05/21/2025[facility] Work Phone: Comment on above:Expected: 11/19/2024 (Approximate), Expires: 05/21/2025Start: 11-19-2024 End: 66-91-4062Safyh metabolic 2000 panel - Serum or PlasmaBasic Metabolic Panel Lab Routine Paroxysmal atrial fibrillation (Multi) High risk medication use Ex pected: 11/19/2024 (Approximate), Expires: 05/21/2025[facility] Work Phone: Comment on above:Expected: 11/19/2024 (Approximate), Expires: 05/21/2025Start: 11-19-2024 End: 49-66-6043YRH panel - Blood by Automated countCBC Lab Routine Paroxysmal atrial fibrillation (Multi) High risk medication use Expected: 11/19/2024 (Approximate), Expires: 05/21/2025[facility] Work Phone: Comment on above:Expected: 11/19/2024 (Approximate), Expires: 05/21/2025Start: 11-19-2024 End: 69-01-3557Fpsjx 1996 panel - Serum or PlasmaLipid Panel Lab Routine Dyslipidemia Expected: 11/19/2024 (Approximate), Expires: 05/21/2025[facility] Work Phone: Comment on above:Expected: 11/19/2024 (Approximate), Expires: 05/21/2025Start: 11-19-2024 End: 42-91-7799Dxkagfxdacq [Units/volume] in Serum or PlasmaThyroid Stimulating Hormone Lab Routine Paroxysmal atrial fibrillation (Multi) High risk medication use Expected: 11/19/2024 (Approximate), Expires: 05/21/2025[facility] Work Phone: Comment on above:Expected: 11/19/2024 (Approximate), Expires: 05/21/2025Start: 11-09-2024 End: 86-43-1393Kuxuyvk encounter procedureNOMS CI FM 100Comment on above:Arrived Start: 10-14-2024 End: 93-67-0246Yuprfob encounter wuovogsdj57/22/2025 2:30 PM EDT Office Visit [facility] [address] [facility] [address] [place] [address] Stanley Emerson MD [address] [facility] 100 [place] [address] (Fax)[facility] CI FM 100Start: 07-74-1474SgdxutajdWexner Medical Centertart: 10-08-2024 End: 04-11-0625Ufxin metabolic 2000 panel - Serum or PlasmaBasic Metabolic Panel Lab Routine Pre-operative cardiovascular examination Expected: 10/08/2024 (Celine roximate), Expires: 10/08/2025[facility] Work Phone: Comment on above:Expected: 10/08/2024 (Approximate), Expires: 10/08/2025Start: 10-08-2024 End: 91-48-5560NID panel - Blood by Automated countCBC Lab Routine Pre-operative cardiovascular examination Expected: 10/08/2024 (Approximate), Expires: 10/08/2025[facility] Work Phone: Comment on above:Expected: 10/08/2024 (Approximate), Expires: 10/08/2025Start: 10-08-2024 End: 39-74-7608LH and aPTT panel - Platelet poor plasma by Coagulation assay Coagulation Screen Lab Routine Pre-operative cardiovascular examination Bradyarrhythmia on pre-operative cardiovascular examination Pre-operative cardiovascular examination, supraventricular arrhythmia Expected: 10/08/2024 (Approximate), Expires: 10/08/2025[facility] [[email or web address] Service Area Work Phone: Comment on above:Expected: 10/08/2024 (Approximate), Expires: 10/08/2025Start: 61-42-1680Hdbutb Wellness Visit (Medicare)Annual Wellness Visit (Medicare)[facility]Start: 96-43-4035Xvwtm culture [facility]art: 61-11-6454Mzlbluqm identified in Urine by CultureUrine CultureWexner Medical Centertart: 40-86-9937Zwhzu [facility] Hospitaltart: 95-18-5122Gzxrgari identified in Urine by CultureUrine CultureWexner Medical Centertart: 09-23-2024 US Lower extremity artery - bilateralWexner Medical Centertart: 09-21-2024 End: 11-18-7127Waucxum encounter ncwfxrexz76/29/2025 2:15 PM EDT Office Visit [facility] 100 [address] [facility] 100 [place] [address] Stanley Emerson MD [address] [facility] 100 [place] [address] 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 [...] urinary catheter present; Former smoker; Polypharmacy; OverweightStart: 84-84-8630PXUBF-19 Vaccine ( season)COVID-19 Vaccine ()[facility]: 21-54-0206ODLVN-19 Vaccine ( season)COVID-19 Vaccine ()[facility]: 09-10-2024 End: 28-83-7725Mavrsjxmk aminotransferase [Enzymatic activity/volume] in Serum or Plasma by With P-5'-PAspartate Aminotransferase Lab Routine Dyslipidemia Expected: 09/10/2024 (Approximate), Expires: 09/10/2025[facility] Work Phone: Comment on above:Expected: 09/10/2024 (Approximate), Expires: 09/10/2025Start: 09-10-2024 End: 08-50-4874Ozywb metabolic 2000 panel - Serum or PlasmaBasic Metabolic Panel Lab Routine Cardiomyopathy, ischemic 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 Expected: 09/10/2024 (Approximate), Expires: 09/10/2025[facility] Work Phone: Comment on above:Expected: 09/10/2024 (Approximate), Expires: 09/10/2025Start: 09-10-2024 End: 24-03-3807Ikjbpgxyqgy [Units/volume] in Serum or PlasmaThyroid Stimulating Hormone Lab Routine Dyslipidemia Expected: 09/10/2024 (Approximate), Expires: [facility] Work Phone: Comment on above:Expected: 09/10/2024 (Approximate), Expires: 09/10/2025Start: 09-09-2024 End: 29-27-0976Fkdilztxese [Units/volume] in Serum or PlasmaThyroid Stimulating Hormone Lab Routine Paroxysmal atrial fibrillation (Multi) High risk medication use Expected: 09/09/2024 (Approximate), Expires: 07/29/2025[facility] Work Phone: Comment on above:Expected: 09/09/2024 (Approximate), Expires: 07/29/2025Start: 07-29-2024 End: 57-51-0703Vpvaghn encounter xtarmsplt80/06/2025 11:00 AM EST Office Visit [facility] [address] [address] Teo Al MD [address] [facility] [address], [address] [place] [address] [facility]: 05-21[facility]2024 End: 20-31-1298Sblvhnd aminotransferase [Enzymatic activity/volume] in Serum or Plasma by With P-5'-PAlanine Aminotransferase Lab Routine Paroxysmal atrial fibrillation (Multi) High risk medication use Expected: 05/21/2024 (Approximate), Expires: 05/21/2025[facility] Work Phone: Comment on above:Expected: 05/21/2024 (Approximate), Expires: 05/21/2025Start: 05-21-2024 End: 56-36-8968Ftzlifanb aminotransferase [Enzymatic activity/volume] in Serum or Plasma by With P-5'-PAspartate Aminotransferase Lab Routine Paroxysmal atrial fibrillation (Multi) High risk medication use Expected: 05/21/2024 (Approximate), Expires: 05/21/2025[facility] Work Phone: Comment on above:Expected: 05/21/2024 (Approximate), Expires: 05/21/2025Start: 05-21-2024 End: 58-45-6793Fmcqf metabolic 2000 panel - Serum or PlasmaBasic Metabolic Panel Lab Routine Paroxysmal atrial fibrillation (Multi) High risk medication use Ex pected: 05/21/2024 (Approximate), Expires: 05/21/2025[facility] Work Phone: Comment on above:Expected: 05/21/2024 (Approximate), Expires: 05/21/2025Start: 05-21-2024 End: 23-96-9706Nypihzjcjts [Units/volume] in Serum or PlasmaThyroid Stimulating Hormone Lab Routine Paroxysmal atrial fibrillation (Multi) High risk medication use Expected: 05/21/2024 (Approximate), Expires: 05/21/2025[facility] Work Phone: Comment on above:Expected: 05/21/2024 (Approximate), Expires: 05/21/2025Start: 05-13-2024 End: 08-45-7653Kywspwy encounter procedureNOMS CI FM 100Comment on above: Encounter for Medicare annual wellness exam; Advance directive discussed with patient; Encounter for screening for other disorder; Screening for alcohol problem; Former smoker; PolypharmacyStart: 05-10-2024 End: 66-52-0621Tzwdrvz encounter uiwetmuqh77/16/2024 11:00 AM EST Office Visit [facility] [address] [place] [address] Stanley Emerson MD [address] [place] [address] (Fax) Essential hypertension, benign (CMS/HCC); Hypertensive nephropathy [...] both ears; Former smoker; OverweightStart: 05-06-2024 End: 66-20-7533Umllksn encounter procedureNOMS CI FM 100Start: 04-12-2024 End: 80-27-5262Kktdwih encounter igeogomzw19/18/2024 3:20 PM EST Office Visit [facility] 703 [facility] 250 [place] [address] Teo Al MD 7[address] [facility] 2, [facility] 250 [place] [address] [facility]: 03-18-2024 End: 71-88-8327Tlfzybn encounter vuseghaja00/24/2024 11:30 AM EDT Office Visit [facility] 100 [address] [place] [address] Stanley Emerson MD [address] [facility] [place] [address] (Fax) Pneumonia of right lower lobe due to infectious organismNOMS CI FM 100Comment on above:Pneumonia of right lower lobe due to infectious organismStart: 03-11-2024 End: 17-63-8702Baurvgcr Pulmonary Function Test (Spirometry/DLCO/Lung Volumes) Complete Pulmonary Function Test (Spirometry/DLCO/Lung Volumes) PFT Routine Paroxysmal atrial fibrillation (Multi) High risk medication use Expected: 03/11/2024 (Approximate), Expires: 02/09/2025[facility] Work Phone: Comment on above:Expected: 03/11/2024 (Approximate), Expires: 02/09/2025Start: 03-11-2024 End: 61-60-4160IJ Chest 2 ViewsXR chest 2 views Imaging Routine Paroxysmal atrial fibrillation (Multi) High risk medication use Expected: 03/11/2024, Expires: 02/09/2025[facility] Work Phone: Comment on above:Expected: 03/11/2024, Expires: 02/09/2025Start: 63-49-7432Aeeek chest X-rayXR chest 2V*[facility]art: 02-18-2024 End: 79-97-4361Xvgfsvugunvt / ancillary services ilflnxajki72/25/2024 1:00 PM EDT Ancillary Procedure [facility] [address] [id number] uh [facility]parkStart: 02-17-2024 End: 21-23-7255NHQ 12 LeadECG 12 Lead ECG Routine Paroxysmal atrial fibrillation (Multi) Expected: 02/17/2024 (Approximate), Expires: 02/09/2025[facility] [[email or web address] Service Area Work Phone: Comment on above:Expected: 02/17/2024 (Approximate), Expires: 02/09/2025Start: 02-10-2024 End: 85-42-5333Yzwqsqzpa aminotransferase [Enzymatic activity/volume] in Serum or Plasma by With P-5'-PAspartate Aminotransferase Lab Routine Paroxysmal atrial fibrillation (Multi) High risk medication use Expected: 02/10/2024 (Approximate), Expires: 02/09/2025[facility] Work Phone: Comment on above:Expected: 02/10/2024 (Approximate), Expires: 02/09/2025Start: 02-10-2024 End: 81-41-2815Qrtfg metabolic 2000 panel - Serum or PlasmaBasic Metabolic Panel Lab Routine Paroxysmal atrial fibrillation (Multi) High risk medication use Ex pected: 02/10/2024 (Approximate), Expires: 02/09/2025[facility] Work Phone: Comment on above:Expected: 02/10/2024 (Approximate), Expires: 02/09/2025Start: 02-10-2024 End: 87-37-1153Rwrewohtick [Units/volume] in Serum or PlasmaThyroid Stimulating Hormone Lab Routine Paroxysmal atrial fibrillation (Multi) High risk medication use Expected: 02/10/2024 (Approximate), Expires: 02/09/2025[facility] Work Phone: Comment on above:Expected: 02/10/2024 (Approximate), Expires: 02/09/2025Start: 80-79-2666GIFUL-19 Vaccine ( season)COVID- 19 Vaccine ( season)[facility]: 50-21-3195Mwzhawkce vaccinationInfluenza Vaccine (#1)[facility]: 82-36-8937BodzvxrcgWexner Medical Centertart: 01-23-2024 Bacteria identified in Urine by CultureWexner Medical Centertart: 13-21-6832Xgioutor to clinical allergistWexner Medical Centertart: 07-02-6494Rjulixmk to rehabilitation physicianParkview Health [facility] Start: 94-75-1553XBA, Provider: Teo Al, Status: Pen, Time: 11:50 AMFUV, Provider: Teo Al, Status: Pen, Time: 11:50 AM-[facility] [place] 250 DO Work Phone: Start: 68-55-4503Fnmsfemc of Coronary Artery, One Artery with Drug-eluting Intraluminal Device, Percutaneous ApproachDilation of Coronary Artery, One Artery with Drug-eluting Intraluminal Device, Percutaneous ApproachWexner Medical Centertart: 24-68-1833Hhvelijfuhj of Left Heart using Low Osmolar ContrastFluoroscopy of Left Heart using Low Osmolar ContrastWexner Medical Centertart: 09-38-8927Ymbqyfzpsja of Multiple Coronary Arteries using Low Osmolar ContrastFluoroscopy of Multiple Coronary Arteries using Low Osmolar ContrastParkview Health [facility]pel[facility] Start: 80-84-5210Qduuoltbfgt of Cardiac Sampling and Pressure, Left Heart, Percutaneous ApproachMeasurement of Cardiac Sampling and Pressure, Left Heart, Percutaneous ApproachWexner Medical Centertart: 97-83-7050Umbnkkcj admissionWexner Medical Centertart: 69-25-7719Vvflzwan to cardiac rehabilitation programWexner Medical Centertart: 01-16-2024 [facility]: 03-40-7666EcbsljehqWexner Medical Centertart: 39-74-3681Rsmgtwos identified in Urine by CultureWexner Medical Centertart: 22-24-1654DOL, Provider: Teo Al, Status: Pen, Time: 10:10 AMFUV, Provider: Teo Al, Status: Pen, Time: 10:10 [facility] DO Work Phone: Start: 29-20-2121LX Abdomen WO and W contrast IV [facility]art: 74-13-3096SCQ of abdomen with contrastMR abdomen wo/w [facility] Hospitaltart: 80-41-5155VkekzdxzuWexner Medical Centertart: 83-57-7626Tccvpqfqnua of Aorta and Bilateral Lower Extremity Arteries using Low Osmolar ContrastFluoroscopy of Aorta and Bilateral Lower Extremity Arteries using Low Osmolar ContrastWexner Medical Centertart: 91-17-9714Xggbdeaotih of Abdominal Aorta with Intraluminal Device, Percutaneous ApproachRestriction of Abdominal Aorta with Intraluminal Device, Percutaneous ApproachWexner Medical Centertart: 55-28-8879CsshvgxygWexner Medical Centertart: 37-05-1026Wanliapaln procedureWexner Medical Centertart: 57-11-8654CfqlitlgjWexner Medical Centertart: 05-17-2022 End: 28-88-7059GvqnyudmmWexner Medical Centertart: 00-26-2879Wgkunaud to nephrologistWexner Medical Centertart: 13-70-7270Uoboopwt to vascular surgeonWexner Medical Centertart: 07-88-6957Rrewkjxy admissionWexner Medical Centertart: 79-50-9322WOL High Risk: (Elderly (60+) or Population) (1 - 1-dose 75+ series)RSV High Risk: (Elderly (60+) or Population) (1 - 1-dose 75+ series)[facility]: 04-63-1619YYZ patients and/or patients aged 60+ years (1 - 1-dose 60+ series)RSV patients and/or patients aged 60+ years (1 - 1-dose 60+ series)[facility]: 50-80-5939Eddrizsu vaccine (1 of 2)Shingles vaccine (1 of 2)[facility]: 79-12-4022Pumftx Vaccines (1 of 2)Zoster Vaccines (1 of 2) [facility]: 89-42-6498EWfW/Tdap/Td Vaccines (1 - Tdap)DTaP/Tdap/Td Vaccines (1 - Tdap)[facility]: 37-95-8879UMiG/Tdap/Td vaccine (1 - Tdap)DTaP/Tdap/Td vaccine (1 - Tdap)[facility]: 89-02-5771Gumhh screening for proteinCKD: Urine Protein ScreeningPremier Health [facility]: 05-11-8144Uetanefh mellitus screeningDiabetes ScreeningPremier Health Atrium [facility]: 56-20-5915Wyalzbdpnj ScreenDepression ScreenBon [facility]: 16-09-7316Iqhll panelLipidsBon [facility]: 45-55-6679BLlS/Tdap/Td Vaccines (1 - Tdap)DTaP/Tdap/Td Vaccines (1 - Tdap)[facility]: 64-82-9566Drnhqnrgig measurementCreatinine LevelUnRegional Medical Center: 96-98-0690Cyprc panelLipid PanelUnRegional Medical Center: 07-08-1944Medicare Annual Wellness VisitMedicare Annual Wellness Visit (AWV)[facility]: 81-18-8782Dnvgcvacb measurementPotBone and Joint Hospital – Oklahoma CityStart: 1943 Thyroid stimulating hormone measurementTSHarper County Community [facility] – [facility] End: 57-72-0552Gsilt Metabolic Panel w/ Reflex to MGBasic Metabolic Panel w/ Reflex to MG Lab Routine Tomorrow AM for 5 Occurrences starting 10/03/2024until 10/07/2024, 3 completedDreampodComment on above:Tomorrow AM for 5 Occurrences starting 10/03/2024 until 10/07/2024, 3 completedBLOOD CULTURE 1 BLOOD CULTURE 1 Lab Routine 04/28/2024 8:34 AM [facility] LoomBLOOD CULTURE 2 BLOOD CULTURE 2 Lab Routine 04/28/2024 8:40 AM [facility] Loom End: 08-55-2536UYM W Auto Differential panel - BloodCBC with Auto Differential Lab Routine Tomorrow AM for 5 Occurrences starting 10/03/2024 until 10/07/2024, 3 completedDreampodComhills & dales [facility] on above:Tomorrow AM for 5 Occurrences starting 10/03/2024 until 10/07/2024, 3 completedCulture, Urine Culture, Urine Microbiology [employer] Label Print 10/02/2024 3:43 PM [facility] SurflyECG 12 LeadECG 12 Lead ECG Routine Paroxysmal atrial fibrillation (Multi) 02/24/2024 2:45 PM [facility] Service Area Work Phone: Insj implntbl defib pulse gen w/1 existing ldICD SUBQ IMPLANT Cardiomyopathy, ischemic Ventricular ectopy/arrhythmia, pre-operative cardiovascular examVirtual GARY Cardiac Cath LabOxygen therapy [Minimum Data Set] Initiate Oxygen Therapy Protocol Respiratory Care Routine As Needed until discontinued starting 10/02/2024on Echobit on above:As Needed until discontinued starting 10/02/2024Patient EducationPromedica Bay Park Hospital [facility]tr Work Phone: Patient referralPromedica Bay Park Hospital Ctr Work Phone: End: 35-97-0340Gimrucg-INRProtime-INR Lab Routine Daily for 3 Weeks starting 10/03/2024 until 10/23/2024, 3 completedBon Secours Mercy HealthComment on above:Daily for 3 Weeks starting 10/03/2024 until 10/23/2024, 3 completedRenal function 1999 panel - Serum or PlasmaParkview Health Montpelier HospitalRenal function 1999 panel - Serum or [facility]ighRenal function 1999 panel - Serum or [facility]ighRenal function 1999 panel - Serum or [facility]beighRenal function 1999 panel - Serum or [facility] Hospitalpirometry panelIncentive spirometry Respiratory Care Routine Every 2hr while awake until discontinued starting 10/02/2024on [facility] Bl[facility] HospitalComment on above:Every 2hr while awake until discontinued starting 10/02/2024URINE CULTURE - FRMCURINE CULTURE - [facility] Routine 09/28/2024 6:08 PM EDTHarry S. Truman Memorial Veterans' HospitalURINE CULTURE - FRURINE CULTURE - FR Lab Routine 10/01/2024 3:40 PM EDTHarry S. [facility]' Hospital End: 21-85-6872QK Heart TransthoracicTHREE CR[facility]ES [facility] [[email or web address]] Service Area Work Phone: Comment on above:Once for 1 Occurrences starting 08/06/2024 until 08/06/2024US Thoracic and abdominal aortaParkview Health Montpelier HospitalXR Chest 2 ViewsTomah Memorial Hospital Immunizations Immunization DateImmunizationNotesCare SvzkijdmJpnjkspu76-30-8891HRW, recombinant, protein subunit RSVpreF, adjuvant reconstitu, 120mcg/0.5mL, PF (Arexvy)Stanley Emerson MD Work Phone: [facility]' HospitalYzggukepsx55-02-9166ctjidefqk virus vaccine, unspecified formulationPatrick SAMUELS [facility] [place] 423700-25-2024influenza, seasonal, injectableGeneric ProviderHarry S. Truman Memorial Veterans' Hospital 73-00-5890Nscqhl Purple Cap SARS-CoV-2 VaccinationGeneric ProviderHarry S. Truman Memorial Veterans' HospitalDfoabzkqla89-13-7634Femwsgqqotnf Conjugate PCV 20Edludy Emerson MD Work Phone: [facility]' HospitalValflpylsd92-07-1311Kagmpigvc, Seasonal, Quadrivalent, AdjuvantedTeo Al MD Work Phone: [facility] Work Phone: [phone]yzbzav virus vaccine, unspecified formulationTeo Al MD Work Phone: [facility]09-24-2023SARS-COV-2 (COVID-19) vaccine, mRNA, spike protein, LNP, PF, valente-sucrose, 30 mcg/0.3 mLStanley Emerson MD Work Phone: [facility]' HospitalQubyigwaub78-05-3362okllaladj, high dose seasonal, preservative-freeTeo Al MD Work Phone: [facility] Work Phone: [phone] Bivalent Booster VaccinationStanley Emerson MD Work Phone: [facility]' HospitalJqobaawwts55-27-1005Sgatug COVID-19 Vac Bivalent 30 MCG/0.3ML Intramuscular SuspensionStanley Emerson Work Phone: [facility] Buezcsqz56-10-1907xsvuvkxza virus vaccine, unspecified formulationPacentral state hospitalzahida SAMUELS [facility] Hospitaly10-22-2022influenza, seasonal, injectableEdludy Emerson Work Phone: [phone]-HaxdjNorthwest Medical Center 250 DO Work Phone: [phone] High-Dose Quadrivalent 0.7 ML Intramuscular Suspension Prefilled SyringeEdludy Emerson Work Phone: [phone]-DinyiNorthwest Medical Center 250 DO Work Phone: [phone]u virus vaccine, unspecified formulationJEERICA OMALLEY [facility]05-11-2022Comirnaty 30 MCG/0.3ML Intramuscular SuspensionEdludy Emerson Work Phone: [phone]-ElprgLake City Hospital and Clinic 250 DO Work Phone: [phone]-40 Cristal Mckeon (Pfizer)MD Stanley Emerson Work Phone: [facility]05-11-2022SARS-CoV-2 mRNA (kkxyykwquqn-seio-gczgvxl) vaccineJENNJASON OMALLEY [facility]05-11-2022SARS-CoV-2, UnspecifiedStanley Emerson MD Work Phone: [facility]' HospitalSlrxqtmzfl63-29-9971gztiadqjquln polysaccharide vaccine, 23 valentEdludy Emerson Work Phone: [facility]09-30-2021influenza virus vaccine, unspecified formulationPaBournewood Hospital [facility]09-30-2021influenza, injectable, quadrivalent, preservative freeStanley Emerson Work Phone: [phone]-BznyrLake City Hospital and Clinic 250 DO Work Phone: [phone]n-MjtLInce COVID-19 Vacc 30 MCG/0.3ML Intramuscular SuspensionStanley Emerson Work Phone: [facility] CenterComment on above:Result Comment: 2022-06-10: MPK1454-04-3663wrylgoukh, high dose seasonal, preservative-freeTeo Al MD Work Phone: [facility] Work Phone: [phone]-ZuaYGhfj COVID-19 Vacc 30 MCG/0.3ML Intramuscular SuspensionEdludy Emerson Work Phone: [facility]02-12-2021Pfizer-BioNTech COVID-19 Vacc 30 MCG/0.3ML Intramuscular SuspensionStanley Emerson Work Phone: [facility]09-29-2020influenza virus vaccine, unspecified formulationHEATHER OMALLEY [facility]09-29-2020influenza, injectable, quadrivalent, preservative freeEdludy Emerson MD Work Phone: [facility]' HospitalBmwhyhucno65-43-6998Djkbblbg, quadrivalent, recombinant, injectable influenza vaccine, preservative freeStanley Emerson Work Phone: [phone]-JxenfCambridge Medical Center-[facility] 250 DO Work Phone: Payers DatePayer CategoryPayerPolicy ID2024Self-[id number] 2016Medicare supplemental policy (as second payer)[facility] MEDICARE SUPPLEMENT [place] [id number] Health [id number] 2011Medicare [id number] [id number] Health [id number] [id number]-[id number]jc3525347 2.16840.1.493801.3.579.2.36630-09-3528Aezmqoe0788913 2.840.1.402895.3.579.2.69799-00-8204Izxzdxc2767813 2.840.1.909823.3.579.2.63362-15-4879Tzuypim6523496 2.840.1.687849.3.579.2.05556-79-8319Vbicekr3792460 2.840.1.449139.3.579.2.68696-96-0564Babsehw3147244 2.840.1.651066.3.579.2.65944-52-0234Agdleln8618970 2.840.1.707698.3.579.2.64549-40-6336Wrkxcgd4086213 2.840.1.757988.3.579.2.19868-86-8020Cedxull997864330 2.840.1.856102.3.579.2.91362-57-7421Ibtgctq146870614 2.840.1.175336.3.579.2.09709-63-6216Umzfwlo185302270 2.840.1.915602.3.579.2.60816-31-0455Jjdcszp541011602 2.840.1.279258.3.579.2.30427-56-4065Ehlyybi374721007 2.840.1.418479.3.579.2.51992-60-4167Dqcfwzg443989938 2.16840.1.231973.3.579.2.21217-56-0442Cjbsrng761819230 2.16840.1.614011.3.579.2.18627-91-0729Jwbryav578956901 2.16840.1.128899.3.579.2.48422-70-0964Snoiujr13788847 2.840.1.925316.3.579.2.21414-78-1529Wbpufcc87374814 2.0.1.471975.3.579.2.50493-51-2047Ojabxro07382317 2..1.315739.3.579.2.35798-85-0226Idzgagw39082381 2.0.1.658651.3.579.2.03426-30-2546Ezkfnxf63835947 2..1.127181.3.579.2.05660-66-1873Cxadync13784788 2.840.1.606241.3.579.2.92039-37-8049Dvbdkmj21864490 2.0.1.693016.3.579.2.74606-24-3884Yqacpnl01074936 2.0.1.000888.3.579.2.36152-48-4452Dvskdir11138842 2.0.1.008350.3.579.2.14198-24-3073Qismega50402524 2.840.1.577453.3.579.2.42123-92-6117Zrccepf28096318 2.840.1.224942.3.579.2.84281-79-8486Iifqcpj06666789 2.840.1.653380.3.579.2.08448-76-5693Tkmsddi31193628 2.840.1.003433.3.579.2.26437-37-2263Hgnbfks77827837 2.0.1.563497.3.579.2.87373-11-0375Lcmcopi63281824 2.840.1.409853.3.579.2.80396-52-6121Fatyiyq13069974 2..1.910565.3.579.2.30360-97-4141Ugeioyb87715428 2.0.1.590106.3.579.2.690203-03-3408Mpfgtnq73906649 2..1.709615.3.579.2.674802-75-1382Vmgkcht98950349 2..1.846359.3.579.2.959885-88-8573Vqtszod9421812 2.0.1.164582.3.579.2.636463-83-7430Hwldjyy4699840 2..1.854329.3.579.2.490512-96-2406Hslmiij4836344 2..1.059301.3.579.2.413680-47-1404Jaqjvwj0233979 2.0.1.309199.3.579.2.093744-99-3626Wwmheki9695261 2.0.1.914132.3.579.2.911083-01-9022Oigaprg4194700 2.840.1.843954.3.579.2.665921-47-3927Fjdneue0672510 2.16840.1.221089.3.579.2.459343-87-6552Nlyiopy6351866 2.16840.1.157053.3.579.2.441804-39-5787Iveyfjy14854244 2.16840.1.610991.3.579.2.26716-23-3090Jgaqdbu20419764 2.16840.1.420312.3.579.2.70099-61-7194Ikiybef05062653 2.0.1.809252.3.579.2.64423-37-4781Culoosg39867608 2.0.1.500554.3.579.2.16288-74-0922Kfivvrt58441247 2.0.1.085757.3.579.2.47557-36-6854Vorpcka39363363 2.0.1.332760.3.579.2.35251-14-2955Tdxlywi77707143 2.840.1.346865.3.579.2.34019-49-3188Gppljsu44487132 2.0.1.783489.3.579.2.78057-10-4598Mozewvw19287362 2.0.1.990294.3.579.2.46736-53-0003Nlvsaco68030593 2.0.1.167729.3.579.2.73907-49-4123Asenfql831845897 2.840.1.488159.3.579.2.315807-41-5003Holwybg318041442 2.840.1.209711.3.579.2.230831-24-6560Oujitsg582089540 2.840.1.067851.3.579.2.464033-22-0839Xfunzzh805596730 2.840.1.876758.3.579.2.1244MedicareMedicare [id number] 49uv74pa-814b-42n9-3v47-jkk14n6bw323TxswqzcHpzlyvoWGN741338976948 351z1551-a8mp-4555-a33o-9888032qb93jPmgmiwa83125516 2.840.1.404781.3.579.2.313Umithxe31251045 2.840.1.174930.3.579.2.531 Iaqxsoo66998034 2.840.1.220708.3.579.2.029Gdtrswo10905995 2.840.1.881296.3.579.2.795Hhgkmuu88389097 2.840.1.771632.3.579.2.531 Udomxia66140426 2.840.1.037155.3.579.2.651Iqhwpwu62017371 2.16840.1.826243.3.579.2.284Znqzyak76071333 2.840.1.796779.3.579.2.531 Gisdqil48140981 2.840.1.443570.3.579.2.208Rijbztx55497602 2.840.1.230706.3.579.2.531 Social History DateTypeDetailFacilityStart: 12-31-2023 End: 71-41-4267Vighu caffeine consumptionDaily caffeine consumptionMultiCare [facility] 250 DO Work Phone: Comment on above:3-4 cups coffee daily;05/17/23 quit; 1/2 dozen cigarettes;Start: 06-11-2022 End: 47-24-6813Lowymzv smoking statusHeavy tobacco smoker (finding)[facility] BellevueStart: 12-31-2023 End: 84-46-5230Kyp [facility] 12-31-1965 End: 81-96-6686Rymfwne smoking status NHISSmoker (finding)[facility]: 35-63-1680Tpq Assigned At [facility] Systemtart: 07-02-2022 End: 94-73-6778Simaxsz smoking status NHISEx-smoker (finding)[facility]: 56-53-7058Nthwwhq smoking statusNeverExecutive [facility]rology of [facility] SanduskyStart: 32-77-3117Litlebk of tobacco use Cigarette SmokerUnDetwiler Memorial Hospital Work Phone: Start: 01-29-2024 End: 82-76-9585Dtyuohw use and exposureSmokeless tobacco non-userUnDetwiler Memorial Hospital Work Phone: Start: 02-24-2024 End: 84-41-8973Jdhmwnwlg beverage intakeLifetime non-drinker (finding)[facility] Work Phone: Start: 55-76-0623Tnb assigned at birthNot on file [facility] Work Phone: Start: 01-31-2024 End: 99-07-8577Mmhjbpwa to SARS-CoV-2 (event)Not sureUnDetwiler Memorial HospitalWithin the last year, have you [...] buy more. Never trueNOMS HealthcareStart: 12-22-2009 End: 18-89-5192AbvJwql (finding)[facility] HospitalHow often do you need to have someone help you when you read instructions, pamphlets, or other written material from your doctor or pharmacy [SILS]AlwaysNOMS Healthcare Sexual OrientationExec[facility] of [facility] Dominic Do you feel stress - tense, restless, nervous, or anxious, or unable to sleep at night because yourmind is troubled all the time - these days [OSQ]Only a littleNOTN HealthcareStart: 96-90-0864Klkqcekol beverage intakeEx-drinker (finding)[facility] Medical Equipment Procedure CodeEquipment CodeEquipment Original TextEquipment IdentifierDates Percutaneous endovascular repair of abdominal aortic aneurysm (AAA)Abdominal aorta endovascular stent-graft()[id number] FDA Start: 65-94-3288Ijepkwrrqugc endovascular repair of abdominal aortic aneurysm (AAA)Abdominal aorta endovascular stent-graft ()[id number] FDAStart: 35-84-1160Xghxjzeaffje endovascular repair of abdominal aortic aneurysm (AAA)Abdominal aorta endovascular stent-graft()[id number] FDAStart: 85-42-1515Sspmghghmkbx endovascular repair of abdominal aortic aneurysm (AAA) Soft-tissue/mesh anchor, non-bioabsorbable ()[id number] FDAStart: 94-77-8078JQ STENT JERZY FRONTIER 3.0 X 38FDAStart: 55-87-6271JB STENT JERZY FRONTIER 3.0 X 38FDAStart: 01-09-4631EM STENT JERZY FRONTIER 3.0 X 38FDAStart: 11-20-1599FV STENT JERZY FRONTIER 3.0 X 38FDAStart: 49-58-9200SL STENT JERZY FRONTIER 3.0 X 38FDAStart: 02-83-8940TF STENT JERZY FRONTIER 3.0 X 38FDAStart: 19-14-8829BX STENT JERZY FRONTIER 3.0 X 38FDAStart: 79-64-2799GN STENT JERZY FRONTIER 3.0 X 38FDAStart: 57-60-6724JU STENT JERZY FRONTIER 3.0 X 38FDAStart: 03-91-2941NK STENT JERZY FRONTIER 3.0 X 38FDAStart: 37-60-8017Ngsevape peripheral artery stent, bare-metal()[id number] FDAStart: 23-53-9934Mqquolfe peripheral artery stent, bare-metal()[id number] FDA Start: 57-32-5412AZ STENT JERZY FRONTIER 3.0 X 38FDAStart: 01-16-2024 Goals DatePatient GoalDesired Activity/State Functional Status HcjqTbwahejemtEtlxuuCdkwehqv11-37-7804Tmoeiaemdz StatusN/AExecutive [facility]rology of [facility]12-19-2024Patient Health Questionnaire 2 item (PHQ-2) [Reported][facility]' HospitalBayuiiyfgp40-39-1012Giaelghfmf StatusN/AExec[facility] of [facility]08-30-2024Functional status Patient at BaselineMartin Memorial Hospital Work Phone: 1([phone]) 241-960608540018-19-6136Mvqzh score [AUDIT-C]0 12/31/2023 8:57 AM EDT Dora Santiago LPNNOMS Tkqiexnlbz37-76-9117Nnhjigk Health Questionnaire 2 item (PHQ-2) [Reported][facility]' HospitalQkgzujnzlz52-89-6373Orembkjebo StatusN/AExec[facility] of [facility]02-05-2024Functional StatusN/A [facility]01-16-2024Functional StatusN/AFTriHealth [facility]10-17-2023Functional StatusN/A[facility] of [facility]07-18-2023Functional StatusN/A [facility]04-26-2023Functional StatusN/A[facility]03-08-2023 Functional StatusN/AExec[facility] of [facility] 88-83-6346Aplcarubsw statusPatient at BaselineMartin Memorial Hospital Work Phone: [phone]) [phone]ketergul StatusN/AExec[facility] Hospitalue12-22-2022Functional statusPatient Not at BaselineMartin Memorial Hospital Work Phone: [facility] Mental Status ZogwDeauimlvpuNhtzleQrbspbfc40-03-8465Qcgwnfiet functionCognitive Status Patient is Progressing Toward BaselineMartin Memorial Hospital Work Phone: 1(870) 663-674602-707427-41-1967Jkefhyete functionCognitive Status Patient at BaselineMartin Memorial Hospital Work Phone: [phone]) 346-658112275623-16-2192Dgkduminj functionCognitive Status Patient at BaselineMartin Memorial Hospital Work Phone: Clinical Notes 06-04-2022 to 11-16-2024 Note Date & ArmgCrucKxxmnmqc04-20-6715 Hospital Discharge instructions Patient Education 11/16/2024 14:35:51 [...] provider. Document Revised: 08/01/2021 Document Reviewed: 04/27/2021 [employer] Patient Education 2021 [employer]. 11/16/2024 14:35:49 Cancer Screening for Males Cancer [...] if anything looks unusual. Males with a jequpr-uddk-qfwxej risk for skin cancer may want to see a ergonomic specialist (paper slitter) for an annual body check. Where to find more information [place] Cancer Society: cancer.org Centers for Disease Control and Prevention: cdc.gov National Cancer [place]: cancer.gov Contact a health care provider if: [...] provider. Document Revised: 05/20/2023 Document Reviewed: 12/02/2022 [employer] Patient Education 2023 [employer] Follow Up Care 10/26/2024 10:10:17 With:ARLENE CASILLAS, Katia Macias, URL Address: [facility] [address] , [place] [address]- When: Unknown [facility] 06-24-2025 NotePatient Education Oncology Cancer Screening for [...] if anything looks unusual. Males with a hbqpqi-hyvu-cohvon risk for skin cancer may want to see a ergonomic specialist (dermatologi (more content not included)...[facility]06-17-2025 History of Present illness Narrative* Stanley Emerson [...] police. He had a rx ofseraquil from [facility] and she put him back on that. [...] exacerbation. We discussed and she has a pnqt-lts-njxoqll hydrocortisone cream at home. For now I [...] by mouth at bedtime documented in this encounterHarry S. Truman Memorial Veterans' HospitalNctvbulevr95-98-8828 History of Present illness Narrative* Stanley Emerson MD - 10/14/2024 2:30 PM EDT Images from the original note were not included. Patient ID: Alex Anderson is a 78 y.o. male who presents for: Flowsheet Row Patient Out[facility] [place] 2] with Joi Zhang LPN Hospital Information ED, Hospital or Fpc Facility Discharge? Hospital Patient has been contacted within two business days of discharge Yes Diagnosis Community acquired pneumonia of lower lobe of lung , Lower extremity edema Edema, Delirium due to another medical condition Discharge Date 10/05/24 Discharged To: Home Setting Discharge Hospital [facility] Engagement Call Start Time 1207 [...] have any upcoming specialty appointments? Yes [10/08 [employer], 10/11 outpatientsurgery for aortic aneuysm left knee] Self Management Does patient have home health? yes What is the home health agency? [facility] Has home health visited the patient [...] in ER and Hospital. Pt [facility] ER d/t [facility] crisis line stating to go because of pts increased delusions, hallucinations, and suicidal ideation. found pocket knife on pt as well. Pt transferred to [facility]. Pt positive for metapneumovirus, Urine cultures came [...] transition of care note is reviewed. a plre-es-bpfk evaluation is done today. Medical decision making is complex in degree. 3. Lower extremity edema Chronic problem, stable, we will monitor at this time. 4. Delirium due to another medical condition Chronic problem that is currently stable and manageable. It was worse when he was acutely ill. No further adjustments. documented in this [facility]05-21-2025 History of Present illness Narrative* Stanley Emerson MD - 10/13/2024 8:31 AM EDT Reviewed the procedure note. Updated the medical record. [id number] History of Present illness Narrative* Ruby [place] [...] future interventions. Family holds healthcare power of estate attorney. DNR status temporarily revoked during procedure. [...] I discussed arrhythmia, ECG, shared decision making, [place] decision tool, informed consent, treatment options, risk, [...] 25.0-25.9, adult Pre-operative cardiovascular examination I, SY DICKINSON, JOSH, AM SCRIBING FOR AND IN THE PRESENCE [...] DNR and POA forms, shared decision making, [place] decision tool, and informed consent [1] Social History Socioeconomic History Marital status: Tobacco Use Smoking status: Former Types: Cigarettes Smokeless tobacco: Never Substance and Sexual Activity Alcohol use: Never Drug use: Never Social Drivers of Health Financial Resource Strain: Low Risk (12/31/2023) Received from [employer] Overall Financial Resource Strain (CARDIA) Difficulty of Paying Living Expenses: Not hard at all Food Insecurity: Patient Unable To Answer (10/02/2024) Received from [facility] Hunger Vital Sign Worried About Running Out of Food in the Last Year: Patient unable to answer Ran Out of Food in the Last Year: Patient unable to answer Transportation Needs: Patient Unable To Answer (10/02/2024) Received from [facility] PRAPARE - Transportation Lack of Transportation (Medical): Patient unable to answer Lack of Transportation (Non-Medical): Patient unable to answer Physical Activity: Inactive (12/31/2023) Received from [facility] Loom Exercise Vital Sign Days of Exercise per Week: 0 days Minutes of Exercise per Session: 0 min Stress: Stress Concern Present (12/31/2023) Received from [facility] [place] [facility] [employer] - Occupational Stress Questionnaire Feeling of Stress : To some extent Social Connections: Moderately Isolated (12/31/2023) Received from [facility] Social Connection and Isolation Panel [NHANES] Frequency of Communication with Friends and Family: More than three times a week Frequency of Social Gatherings with Friends and Family: More than three times a week Attends Shinto Services: Never Active Member of Clubs or Organizations: No Attends Club or Organization Meetings: Never Marital Status: Intimate Partner Violence: Not At Risk (12/31/2023) Received from [facility] Humiliation, Afraid, Rape, and Kick questionnaire Fear of Current or Ex-Partner: No Emotionally Abused: No Physically Abused: No Sexually Abused: No Housing Stability: Patient Unable To Answer (10/02/2024) Received from [facility] Housing Stability Vital Sign Unable to Pay for Housing in the Last Year: Patient unable to answer Homeless in the Last Year: Patient unable to answer [2] Family History Problem Relation Name Age of Onset Other (bowel obstruction) Mother Brain cancer Father documented in this [facility] Work Phone: 1(812) 588-673205-16-2025 Instructions* Patient Instructions* Sy Dickinson LPN - [...] ICD Implant At: [facility] With: Dr. [place] and Dr. Capone [...] day before your scheduled procedure, please call [phone]. 3. Please bring a current list of [...] any questions, please contact the office at [phone]. Follow up 1 week after for a wound care check appointment documented in this [facility] Work Phone: 1(520) 845-174405-13-2025 History of Present illness Narrative* Jessy Wayne RN - 10/05/2024 1:34 PM EDT AVS reviewed with and patient. All questions answered. Leg bag attached to zapien. IV removed, no complications. Waiting for meds to bed to be delivered. * Servando Hall MD - 10/05/2024 9:46 AM EDT [facility] PROGRESS NOTE 10/05/2024 9:55 AM Name: Alex Anderson Acct: [id number] Room: Day: 3 Admit Date: 10/02/2024 10:30 [...] are in and will be reviewed from [place]. Brief History: 78 yo male admitted to [...] COPD, anemia, AAA post stent, hypothyroidism. Per [facility] records patient was brought in to [facility] ED by due to increasing delusions, hallucinations [...] screening positive for tricyclic antidepressant. Transferred to [facility] for psychiatric assessment and potentially [facility] admission following medical clearance. On admit, patient is ANO x 2, knows his name date, birthday, president. Able to list some family members. Is aware he is in a hospital in [place]. He endorses increasing bilateral lower extremity weakness [...] Gross per 24 hour Intake -- Output 0 ml Net -0 ml Labs: @LABDAILY3@ Lab Results Component Value Date/Time SPECIAL Site: Urine 10/02/2024 03:43 PM Lab Results Component Value Date/Time CULTURE GRAM NEGATIVE RODS >100,000 CFU/ML (A) 10/02/2024 03:43 PM @MLBGPOC@ Radiology: Vascular duplex lower extremity venous bilateral [...] - dementia versus delirium -Patient transferred from [facility] due to declining mental status and increasing delusionsand hallucinations. Per chart review patient's was increasingly concerned for the last 2 weekshe has had more hallucinations and delusions, concerned of people coming to find him. Recently obtained a pocket knife that she is unsure how he got. Per chart review endorsed some suicidal ideation -CT head in ED [facility] 10/01 reviewed no acute intracranial abnormality -UDS 10/01 [facility] positive for tricyclic's -On admit patient denies [...] frequency with urination - In ED at [facility], urinalysis small leukocyte esterase moderate bacteria 10/01; BUN 26 creatinine 2.01 -> creatinine 1.9 -[facility] urine culture received 10/05. Positive for Klebsiella [...] review unsure if it was replaced at [facility] A-fib - Patient had some runs of [...] asdocumented by the resident. Urine culture from [facility] growing Klebsiella and Enterobacter sensitive to Cipro. Chronic Zapien. Follow-up urology as outpatient. CT head from [facility], [facility]. Varicose veins, vascular surgery follow-up as outpatient. Hypokalemia- replaced * Jessy Wayne RN - 10/05/2024 9:21 AM EDT Oral potassium replaced. * Aristeo Gallardo RPH - 10/05/2024 8:07 AM EDT Pharmacy Note [...] Daily PT/INR while inpatient. Satish Gallardo PharmD, [facility] 10/05/2024 8:05 AM * Leticia John OTR/Romina - 10/04/2024 2:41 PM EDT [facility] OCCUPATIONAL THERAPY MISSED TREATMENT NOTE INPATIENT Date: 10/04/24 Patient Name: Alex Anderson Room: : 1945 (78 y.o.) Gender: male REASON FOR MISSED TREATMENT: 10/04/24 - Other - Palliative Care LIDDER in room initially. Checked back at 1430, with pt working with physical therapy. PCT reported needing to get EKG once pt has completed PT. OT will continue to follow and check back as time permits. 1352; 1430 * Filemon Cerda RN - 10/04/2024 12:10 PM EDT Patient Alert and Oriented x 4, per Jessy RN. Bedside health and safety coordinator removed, Telesitter placedat bedside. * Jessy Wayne [...] periodically make illogical statements in response to typewriter operator automatic's assessment questions and thought process was somewhat [...] Patient initially presented to the ED from [facility]. He was presented to [facility] for potential admission, but declined as his symptoms were consistent with delirium. Noted he was placed perry application for emergency admission by [facility] secondary to patient'sbehavior at home. per [...] like him to see Dr. Mcarthur in [place]. Per review of documentation, patient medications managed [...] mEq, 40 mEq, Oral, PRN OR potassium [id number] mEq/100 mL IVPB (Peripheral Line), 10 mEq, [...] psychosocial and environmental stressors PLAN Admission to [facility] is not warranted No medication changes today [...] agree with assessment. The patient was seen [id number]. The patient is pleasant on approach. He [...] Hall MD - 10/04/2024 9:30 AM EDT [facility] PROGRESS NOTE 10/04/2024 9:40 AM Name: Alex Anderson Acct: [id number] Room: IP Day: 2 Admit Date: 10/02/2024 10:30 AM [...] COPD, anemia, AAA post stent, hypothyroidism. Per [facility] records patient was brought in to [facility] ED by due to increasing delusions, hallucinations [...] screening positive for tricyclic antidepressant. Transferred to [facility] for psychiatric assessment and potentially [facility] admission following medical clearance. On admit, patient is ANO x 2, knows his name date, birthday, president. Able to list some family members. Is aware he is in a hospital in [place]. He endorses increasing bilateral lower extremity weakness [...] - dementia versus delirium -Patient transferred from [facility] due to declining mental status and increasing delusionsand hallucinations. Per chart review patient's was increasingly concerned for the last 2 weekshe has had more hallucinations and delusions, concerned of people coming to find him. Recently obtained a pocket knife that she is unsure how he got. Per chart review endorsed some suicidal ideation -CT head in ED [facility] 10/01 reviewed no acute intracranial abnormality -UDS 10/01 [facility] positive for tricyclic's -On admit patient denies [...] frequency with urination - In ED at [facility], urinalysis small leukocyte esterase moderate bacteria 10/01; [...] review unsure if it was replaced at [facility] A-fib - Patient had some runs of [...] outpatient Neuro consulted * Constantin Goodwin [facility] - 10/04/2024 9:09 AM EDT [...] Daily PT/INR while inpatient. Constantin Goodwin PharmD. [facility] 10/04/2024 9:09 AM * Heather Solis, SECOND VP HR ASSESSMENT - LACE SEWER - 10/03/2024 5:44 PM EDT Department of [...] periodically make illogical statements in response to typewriter operator automatic's assessment questions and thought process was somewhat [...] to not meet criteria for admission to [facility] due to delirium and is not experiencing [...] Patient initially presented to the ED from [facility]. He was presented to [facility] for potential admission, but declined as his symptoms were consistent with delirium. Noted he was placed perry application for emergency admission by [facility] ED secondary to patient'sbehavior at home. per [...] like him to see Dr. Mcarthur in [place]. Per review of documentation, patient medications managed [...] Take 0.5 tablets by mouth daily 04/21/24 Anlai Hillman MD Medications: Current Facility-Administered Medications: [START [...] mEq, 40 mEq, Oral, PRN OR potassium [id number] mEq/100 mL IVPB (Peripheral Line), 10 mEq, [...] psychosocial and environmental stressors PLAN Admission to [facility] is not warranted No medication changes today [...] - 10/03/2024 3:16 PM EDT Physical Therapy [facility] Physical Therapy Evaluation Date: 10/03/24 Patient Name: Alex Anderson Room: Account: [id number] : 1945 (78 y.o.) Gender: male Discharge [...] of pneumonia, UTI, altered mental status. Per [facility] records patient was brought in to [facility] ED by due to increasing delusions, hallucinations [...] screening positive for tricyclic antidepressant. Transferred to [facility] for psychiatric assessment and potentially [facility] admission following medical clearance. Referral Date : [...] climbing 3-5 steps with a railing?: Total [facility] Inpatient Mobility Raw Score : 16 [facility] Inpatient T-Scale Score : 40.78 Mobility Inpatient CMS 0-100% Score: 54.16 Mobility Inpatient [facility] G-Code Modifier : CK Goals Patient Goals [...] 2:03 PM EDT New consult to Neurology. Core Piler notifed Moris Barragan MD. * Mar Gonzalez RN - 10/03/2024 9:03 AM EDT Patient potassium is low. Potassium oral 40mEq was given per PRN orders * Servando Hall MD - 10/03/2024 8:50 AM EDT [facility] PROGRESS NOTE 10/03/2024 9:59 AM Name: Alex Anderson Acct: [id number] Room: IP Day: 1 Admit Date: 10/02/2024 [...] COPD, anemia, AAA post stent, hypothyroidism. Per [facility] records patient was brought in to [facility] ED by due to increasing delusions, hallucinations [...] screening positive for tricyclic antidepressant. Transferred to [facility] for psychiatric assessment and potentially [facility] admission following medical clearance. On admit, patient is ANO x 2, knows his name date, birthday, president. Able to list some family members. Is aware he is in a hospital in [place]. He endorses increasing bilateral lower extremity weakness [...] for: SPECIAL No results found for: CULTURE @[facility]@ Radiology: No results found. Physical Examination: Physical [...] - dementia versus delirium -Patient transferred from [facility] due to declining mental status and increasing delusionsand hallucinations. Per chart review patient's was increasingly concerned for the last 2 weekshe has had more hallucinations and delusions, concerned of people coming to find him. Recently obtained a pocket knife that she is unsure how he got. Per chart review endorsed some suicidal ideation -CT head in ED [facility] 10/01 reviewed no acute intracranial abnormality -UDS 10/01 [facility] positive for tricyclic's -On admit patient denies [...] frequency with urination - In ED at [facility], urinalysis small leukocyte esterase moderate bacteria 10/01; [...] AM EDT New consult for Palliative Care. Core Piler notified Heather Romo NP. * Aidee Kearns [facility] - 10/03/2024 7:00 AM EDT Pharmacy Note [...] Daily PT/INR while inpatient. Aidee Kearns, Ericka, [facility] * Gi Berrios RN - 10/02/2024 9:00 PM EDT RN attempted to finish patients admission questions, patient was unable to answer. * Tamy Palacios RN - 10/02/2024 6:03 PM EDT Core Piler notified Palliative care of new consult placed. [...] at 1.9 (goal 2-3). Patient follows with [facility]. Patient's [facility] at [facility], sparse documentation in EPIC. Documentation from transferring hospital states patient is on coumadin 2 mg daily. Will schedule coumadin 2 mg tonight, has not received medications since last night. Daily PT/INR while inpatient. Thank you for the consult. Will continue to follow. Aidee Kearns, Ericka, [facility] * Cesar Melendez - 10/02/2024 11:43 AM EDT New consult to Urology. Core Piler notified Goldy Garland MD. * Cesar Melendez - 10/02/2024 11:41 AM EDT New consult to Psychiatry. Core Piler notified Froy Razo MD. [facility] Discharge instructions* Discharge Instructions* Waqar [...] (CD rom and photo on phone) from [facility] with you but it is also uploaded in media in your chart at [facility] - Follow-up with your vascular surgeon regarding [...] Discharging Nurse: Jessy CHAN Discharging Hospital Unit/Room#: 2060/2060-01 Discharging Unit Emergency Contact: Extended Emergency Contact Information Primary Emergency Contact: Estella Anderson Relation: Spouse Waterworks Pump Station Operator needed? No Secondary Emergency Contact: Antonio Anderson [...] Assisted Dressing Assisted Toileting Assisted Feeding Independent Gate Agent Assisted Med Delivery whole Wound Care Documentation [...] cane, walker, and bath bench Other Treatments: Fpc assessment and monitoring. Medication education and monitoring per protocol. Patient's personal belongings (please select all that are sent with patient): Glasses RN SIGNATURE: CASE MANAGEMENT/SOCIAL WORK SECTION Inpatient Status Date: 10/02/2024 Readmission Risk Assessment Score: [facility] RISK OF UNPLANNED READMISSION 2.0 13.1 Total Score Discharging to Facility/ [facility] Address: [address] [place] [address] Dialysis Facility (if applicable) Name: Address: Dialysis Schedule: Phone: Fax: Power System Operator/Personal Injury Attorney signature: PHYSICIAN SECTION Prognosis: Fair Condition at [...] H&P PHYSICIAN SIGNATURE: documented in this [facility]Bon [facility] History of Present illness Narrative* Stanley Emerson MD - 09/21/2024 2:15 PM EDT Images from the original note were not included. Patient ID: Alex Anderson is a 78 y.o. male who presents for: Pt reported to his [facility] Nurse yesterday that pt has been having issues with increased hallucinations and cognitive impairment. Results were looked up in [facility] and there are no recent UA's [...] a gentle exercise program. documented in this encounterHarry [facility]. [facility] [id number] History of Present illness Narrative* Teo Al [...] Arrangements are going to be made at [facility]. He will be communicated to through the office in the area for the arrangements to be made. His present medical therapy was left unchanged. Assessment/recommendations: 1-history of non-ST elevation myocardial infarction leading to LAD stenting December 2023 at [facility], continue Plavix, high intensity statin, patient is not on aspirin since he is also on Coumadin 2-post CT paroxysmal atrial fibrillation, currently back in sinus [...] is recommended and will be arranged at [facility]. 5- status post AAA stenting with [facility] 2022 with no complications. 6- chronic kidney disease stage IIIb. Patient's follows with nephrology, basic metabolic profile isordered 7-hyperlipidemia on maximal dose atorvastatin 8- history of TIA, no recurrences 9- slight overweight, encouragement provided for prudent diet and daily activities 10-colon polyp large enough to require surgery, he is refusing follow-up at the [facility] 11- history of bladder cancer [...] Metabolic Panel 2. 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Basic Metabolic Panel Basic [...] exam, discussion and plan. [facility] Work Phone: 1(477) 756-448804-18-2025 Instructions* Patient Instructions* Ruth Mojica LPN - [...] 03/29 visit as scheduled. [facility] Work Phone: 1(330) 949-766003-20-2025 Telephone encounter Note* Telephone Encounter - Stanley Emerson MD - 08/12/2024 2:19 PM EDT Entered in error [facility] [id number] Miscellaneous Notes* Telephone Encounter - Stanley Emerson MD - 08/12/2024 2:19 PM EDT Entered in error documented in this encounterHarry S. [facility]' [id number] Evaluation note* Diagnosis Onset Date Resolution Status Admit Date Abdominal aortic [facility]ur [facility] [place] [facility] 10:25amAnemiaacuteMar 2024 10:25amCHF (congestive heart failure)[facility] 20[facility] 10:25amChronic kidney disease, stage 3bacute August 11, 2024 10:25amHyperlipidemiaacuteMarch 2024 10:25amHypertensive nephropathyacuteMarch 2024 10:25amIron deficiencyacuteMar 2024 10:25amObstructive nephropathyacuteMarch 2024 10:25am [facility] Work Phone: 1(350) 159-187203-19-2025 Evaluation note* Diagnosis Onset Date Resolution Status Admit Date Abdominal aortic aneurysm without ruptur e acuteMarch 2024 10:25amAnemiaacuteMarch 2024 10:25amCHF (congestive heart failure)[facility] 2024 10:25amChronic kidney disease, stage 3bacute August 11, 2024 10:25amHyperlipidemiaacuteMarch 2024 10:25amHypertensive nephropathyacuteMarch 2024 10:25amIron deficiencyacuteMet[facility]health [facility] 2024 10:25amObstructive nephropathyacuteRobert [facility] [place] 2024 10:25amAneurysm of left popliteal arteryacuteMa2024 9:09am [facility] Work Phone: 1(879) 972-984303-19-2025 Evaluation note* Diagnosis Onset Date Resolution Status Admit Date Abdominal aortic aneurysm without ruptur e [facility] [place] 20[facility] 10:25amAnemiaacuteMet[facility] 2024 10:25amCHF (congestive heart failure)[facility]Robert [facility] [place] 2024 10:25amChronic kidney disease, stage 3bacute March 2024 10:25amHyperlipidemiaacuteMarch 2024 10:25amHypertensive nephropathyacuteRobert [facility] [place]2024 10:25amIron deficiencyacuteRobert [facility] [place] 2024 10:25amObstructive nephropathyacuteMet[facility] 2024 10:25amAneurysm of left popliteal arteryacuteMi2024 9:09amAbdominal aortic aneurysm without ruptureacuteFirst[facility]20[facility] 3:51pmAnemiaacuteFirsthealth [facility] 2024 3:51pmCHF (congestive heart failure)acuteFirst[facility]2024 3:51pmChronic kidney disease, stage 3bacuteFirsthealth [facility]2024 3:51pmHyperlipidemiaacuteFirsthealth [facility] 2024 3:51pm Hypertensive nephropathyacuteFirst[facility]2024 3:51pmIron deficiencyacuteFirsthealth [facility]2024 3:51pmObstructive nephropathyacuteFirsthealth [facility] 2024 3:51pm [facility] Work Phone: 1(252) 435-477503-06-2025 History of Present illness Narrative* Teo Al [...] was against going to the [facility] to follow-up on colonic polyp as was suggested by his local commercial credit head. He reports no syncope or presyncope his [...] to LAD stenting December 2023 at [facility], continue Plavix, high intensity statin, patient is not on aspirin since he is also on Coumadin 2-post CT paroxysmal atrial fibrillation, currently back in sinus [...] is refusing follow-up at the [facility] 11- history of bladder cancer [...] tablet daily in the evening. Follow [place] [facility]. Patient will take coumadin and eliquis together for 3 days only, Disp: 14 tablet, Rfl: 0 Assessment/Plan 1. Cardiomyopathy, ischemic Follow Up In Cardiology 2. Paroxysmal atrial fibrillation (Multi) 3. High risk medication use 4. 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 S/P PTCA [...] exam, discussion and plan. documented in this [facility] Work Phone: 1(125) 606-355503-06-2025 Instructions* Patient Instructions* Pebbles Arcos LPN - [...] through Care Everywhere. * Heart Healthy Diet ([place] Islander) documented in this [facility] Work Phone: 1(204) 223-462802-20-2025 Hospital Discharge instructions Patient Education 07/15/2024 14:05:29 [...] cells. Follow these instructions at home: Take iihy-myl-dtntdmy and prescription medicines only as told by [...] is important. Where to find more information [place] Cancer Society (ACS): cancer.org National Cancer [place] (NCI): cancer.gov Contact a health care provider [...] provider. Document Revised: 04/22/2022 Document Reviewed: 04/22/2022 [employer] Patient Education 2023 [employer]. Follow Up Care 06/01/2024 11:03:36 With:JOSSELIN BARR, HEATHER Luu, URL Address: [address] [place] [address] When:Within 1 Month(s) [facility] 02-20-2025 NotePatient Education Oncology Bladder Cancer Bladder [...] Follow these instructions at home: ??? Take jnfs-zfp-rbffwqm and prescription medicines only as told by [...] important. Where to find more information ??? Citizen [place] Cancer Society (ACS): cancer.org ??? National Cancer [place] (NCI): cancer.gov Contact a health care provider [...] This information is n (more content not included)...[facility] 06-07-2024 NotePatient Education Urology Hematuria, Adult Hematuria [...] these instructions at home: Medicines ??? Take vmgc-zxd-kxmebwy and prescription medicines only as told by [...] the blood stops without treatment. ??? Take ggzn-civ-jcfzced and prescription medicines only as told by your health care provider. ??? Drink enough fluid to keep your urine pale yellow. This information is not intended to replace advice given to you by your health care provider. Make sure you discuss any questions you have with your health care provider. Document Revised: 01/10/2021 Document Reviewed: 01/10/2021 [employer] Patient Education ? 2023 [employer].[facility] 05-21-2024 History of Present illness Narrative* Teo [...] are considering consultation at the [facility] for large colonic polyp that [...] to LAD stenting December 2023 at [facility], continue Plavix, high intensity statin, patient is not on aspirin since he is also on Coumadin 2-post CT paroxysmal atrial fibrillation, currently back in sinus [...] following for that at the [facility]. 11- history of bladder cancer [...] tablet daily in the evening. Follow [place] [facility]. Patient will take coumadin and [...] Stimulating Hormone 3. 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 S/P PTCA [...] exam, discussion and plan. documented in this [facility] Work Phone: 1(958) 130-664712-27-2024 Instructions* Patient Instructions* Pebbles Arcos LPN - [...] through Care Everywhere. * Heart Healthy Diet (Cook Islander) documented in this [facility] Work Phone: 1(913) 187-625312-19-2024 History of Present illness Narrative* Stanley Emerson [...] MD as PCP - ACO Reach Dora Snatiago LPN as Licensed Practical Nurse (Family Medicine) [...] Do you have a medical power of estate attorney?: No Objective : BP 122/74 Pulse [...] through a living will, durable power of estate attorney for healthcare, or other advanced directives. [...] on May 29, 2024 documented in this encounterHarry S. Truman [facility] [id number] History of Present illness Narrative* Stanley Emerson [...] to encourage good nutrition. documented in this encounterHarry S. Truman Memorial Veterans' HospitalAjbxmlxptu40-52-7589 Hospital Discharge instructions Patient Education 04/06/2024 11:31:42 [...] provider. Document Revised: 08/01/2021 Document Reviewed: 04/27/2021 [employer] Patient Education 2021 [employer]. 04/06/2024 11:28:52 Cancer Screening for Males Cancer [...] if anything looks unusual. Males with a ipmckt-xsar-kpkney risk for skin cancer may want to see a ergonomic specialist (paper slitter) for an annual body check. Where to find more information [place] Cancer Society: cancer.org Centers for Disease Control and Prevention: cdc.gov National Cancer [place]: cancer.gov Contact a health care provider if: [...] provider. Document Revised: 05/20/2023 Document Reviewed: 12/02/2022 [employer] Patient Education 2023 [employer]. Follow Up Care 02/25/2024 15:13:08 With:ARLENE CASILLAS, Katia Macias, URL Address: [facility] [address], [place] [address]- When: Unknown [facility] 11-12-2024 NotePatient Education Oncology Cancer Screening for [...] if anything looks unusual. Males with a aiorbb-qtks-gimwkp risk for skin cancer may want to see a ergonomic specialist (dermatologi (more content not included)...[facility]10-24-2024 History of Present illness Narrative* Stanley Emerson [...] further evaluation or treatment. documented in this encounterHarry S. Truman Memorial Veterans' HospitalMhqddfylur50-88-3032 History of Present illness Narrative* Leanne Soriano [...] m (6' 2 ) [facility] Work Phone: 1(482) 544-120409-24-2024 History of Present illness Narrative* Stanley Emerson [...] 1 each; Refill: 0 documented in this encounterHarry S. Truman Memorial Veterans' HospitalCxroswoail15-57-6082 History of Present illness Narrative* Teo Al MD - 02/10/2024 9:20 AM EDT Subjective Alex Anderson is a 78 y.o. male Chief Complaint Hospital Follow-up HPI 78-year-old white male who recent underwent LAD stenting for anterior STEMI at [facility] by Dr. Pruett. He subsequently developed atrial [...] to LAD stenting December 2023 at [facility], continue Brilinta, high intensity statin, patient is not on aspirin since he is also on Eliquis 2-post CT paroxysmal atrial fibrillation, currently back in sinus [...] medication use 3. 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 S/P PTCA (percutaneous transluminal coronary angioplasty) 5. Essential hypertension 6. Dyslipidemia 7. Stage 3a chronic kidney disease (Multi) 8. Transient cerebral ischemia, unspecified type 9. BMI 26.0-26.9,adult 10. Former smoker Scribe Attestation By signing my name below, I, Yvonne Farrell LPNibbell attest that this documentation has been prepared [...] exam, discussion and plan. [facility] Work Phone: 1(262) 766-864609-17-2024 Instructions* Patient Instructions* Pebbles Arcos LPN - [...] through Care Everywhere. * Heart Healthy Diet ([place] Islander) [facility] Work Phone: 1(274) 259-776508-30-2024 Consult note Author Rogelio Rai [facility] January 23, 2024 12:43pmNote Date/TimeAugust 2023 12:29pm[place] [address] Physiatry (Rehab) Consult Note Signed Patient: Alex Anderson MR#: [id number] : 1945 Acct:[id number] Age/Sex: 78 / M Adm Date: 4 Loc: 4 Room: [id number] Type: ADM IN Attending Dr: Nas Pruett [...] post mid LAD stenting for ST elevation CT (01/15) course complicated by hypotension, atrial fibrillation, and recently sundowning/delirium. and daughter at bedside. We had a long discussion about post acute care planning, please see below. They were a little unsettled about events from lastnight as it regards to his agitation and behaviors. Review of Systems Review of Systems Unobtainable due to mental status PMF Source: Obtained From Family Medical History Zapien [...] cancer Son [facility]: Diagnosed with Mental Illness Social [...] Clear Urine pH 5.5 Ur Specific [place] 1.022 Urine Protein Trace H Urine Glucose [...] post mid LAD stenting for ST elevation CT (01/15) course complicated by hypotension, atrial fibrillation, [...] would recommend SNF closer to home in [place]. I understand this may be a discrepancy [...] chart, including current orders, allied health and field consultant notes, labs/imaging and performed diaz elements of exam and I formulated the plan of care and facilitated the medical decision making. I completed a substantive portion of this encounter, the medical decision making portion of this note in its entirety, including Allied health note review, nursing note review, field consultant note review, discussion with nursing and case management, and more than 50% of my time was spent on counseling and coordination of care, time spent 40 minutes Documented By: Rogelio Rai MD 01/23/24 1207 Signed By: <Electronically signed by Rogelio Rai MD> 01/23/24 1243 [facility] Work Phone: 1(662) 499-255808-30-2024 Progress note Author Isaac Edwards [facility] January 23, 2024 12:01pmNote Date/TimeAugust 2023 11:[address] [address] Progress Note Signed Patient: Alex Anderson MR#: [id number] : 1945 Acct:[id number] Age/Sex: 78 / M Adm Date: 4 Loc: Room: [address] [place] [address] Type: ADM IN Attending Dr: Nas Pruett [...] by MD Isaac Edwards> 01/23/24 1201 [facility] Work Phone: 1(100) 163-439108-30-2024 Consult note Author Rob Almazan [facility] January 23, 2024 3:21pmNote Date/TimeAugust 2023 8:[address] [address] Hospitalist Consult Note Signed Patient: Alex Anderson MR#: [id number] : 1945 Acct:[id number] Age/Sex: 78 / M Adm Date: 4 Loc: Room: [address] [place] [address] Type: ADM IN Attending Dr: Nas Pruett [...] that which is noted above in HPI [facility] Medical History Zapien catheter in place BPH [...] % (Auto) 64.3, Lymph % (Auto) 15.6, [place] % (Auto) 16.0, Eos % (Auto) 3.6, Baso % (Auto) 0.5, Nucleat RBC Rel Count 0.1, Neut # (Auto) 5.7, Lymph # (Auto) 1.4, [place] # (Auto) 1.4 H, Eos # (Auto) [...] signed by Rob Almazan MD> 01/23/24 1521 [facility] Work Phone: 1(182) 228-476108-30-2024 Progress note Author Jakob Lomax [facility] January 23, 2024 12:26amNote Date/TimeAugust 2023 12:26[place] [address] Progress Note Signed Patient: Alex Anderson MR#: [id number] : 1945 Acct:[id number] Age/Sex: 78 / M Adm Date: 4 Loc: 4 Room: [address] [place] [address] Type: ADM IN Attending Dr: Nas Pruett DO Copies to: ~ Date of Service: 01/22/2024 Progress Narrative Note PROGRESS NOTE Progress Note: Patient had a security alert called earlier this evening after getting aggressive with PCT, I responded to the security alert and received full report from bedside and ore charger regarding the events.patient did fall but [...] will plan to use Haldol 5mg IM, ore charger aware to notify me if needed. Formal consult to come tomorrow Documented By: Jakob Lomax DO 01/23/24 002 Signed By: <Electronically signed by Jakob Lomax DO> 01/23/24 0026 [facility] Work Phone: 1(784) 749-738608-29-2024 Progress note Author Teo Al [facility] January 22, 2024 2:01pmNote Date/TimeAugust 2023 2:01pmC[place] [address] Cardiology Progress Note Signed Patient: Alex Anderson MR#: [id number] : 1945 Acct:[id number] Age/Sex: 78 / M Adm Date: 4 Loc: Room: [address] [place] [address] Type: ADM IN Attending Dr: Nas Pruett [...] need toby found as the next step. superintendent quarry and PT will be consulted Exam Physical [...] heart failure Documented By: Teo Al MD, [facility]ITALQuynh 4 1359 Signed By: <Electronically signed by MD [place] Al> 01/22/24 1401 [facility] Work Phone: 1(496) 529-456108-29-2024 Progress note Author Isaac Edwards [facility] January 22, 2024 1:58pmNote Date/TimeAugust 2023 1:58pmC[place] [address] Pulmonology Progress Note Signed Patient: Alex Anderson MR#: [id number] : 1945 Acct:[id number] Age/Sex: 78 / M Adm Date: 4 Loc: Room: [address] [place] [address] Type: ADM IN Attending Dr: Nas Pruett DO Copies to: ~ Date of Service: 01/22/2024 Exam Physical Exam Vital Signs: Temp Pulse Resp BP Pulse Ox O2 Del Method O2 Flow Rate 98.4 F 64 16 98/65 L 96 Room Air 2 01/22/24 11:21 01/22/24 11:01/22/24 11:01/22/24 11:01/22/24 11:01/22/24 11:01/19/24 10:00 Const [...] peripherally. Documented By: Isaac Edwards MD 4 1351 Signed By: <Electronically signed by MD Isaac Edwards> 01/22/24 1355 [facility] Work Phone: 1(677) 274-241308-28-2024 Progress note Author Teo Al [facility] January 21, 2024 5:24pmNote Date/TimeAugust 2023 5:[place]pmAlex [place] [id number] Cardiology Progress Note Signed Patient: Alex Anderson MR#: [id number] : 1945 Acct:[id number] Age/Sex: 78 / M Adm Date: 4 Loc: 4P Room: [id number] Type: ADM IN Attending Dr: Nas Pruett [...] % (Auto) 64.3 Lymph % (Auto) 15.6 [place] % (Auto) 16.0 Eos % (Auto) 3.6 Baso % (Auto) 0.5 Nucleat RBC Rel Count 0.1 Neut # (Auto) 5.7 Lymph # (Auto) 1.4 [place] # (Auto) 1.4 H Eos # (Auto) [...] heart failure Documented By: Teo Al MD, [facility] 4 1722 Signed By: <Electronically signed by MD [place] Al> 01/21/24 8793 [facility] Work Phone: 1(942) 617-247308-28-2024 Progress note Author Isaac Edwards [facility] January 21, 2024 11:45amNote Date/TimeAugust 2023 11:[address] [address] Pulmonology Progress Note Signed Patient: Alex Anderson MR#: [id number] : 1945 Acct:[id number] Age/Sex: 78 / M Adm Date: 4 Loc: Room: [address] [place] [address] Type: ADM IN Attending Dr: Nas Pruett [...] signed by MD Isaac Edwards> 01/21/24 1145 [facility] Work Phone: 1(791) 296-960008-27-2024 Progress note Author Teo Al [facility] January 20, 2024 3:58pmNote Date/TimeAugust 2023 3:58pm[place] [address] Cardiology Progress Note Signed Patient: Alex Anderson MR#: [id number] : 1945 Acct:[id number] Age/Sex: 78 / M Adm Date: 4 Loc: Room: [address] [place] [address] Type: ADM IN Attending Dr: Nas Pruett [...] % (Auto) 71.9 Lymph % (Auto) 11.8 [place] % (Auto) 14.3 Eos % (Auto) 1.7 Baso % (Auto) 0.3 Nucleat RBC Rel Count 0.0 Neut # (Auto) 6.8 Lymph # (Auto) 1.1 [place] # (Auto) 1.4 H Eos # (Auto) [...] heart failure Documented By: Teo Al MD, [facility] 4 5433 Signed By: <Electronically signed by MD [place] Al> 01/20/24 8018 [facility] Work Phone: 1(182) 758-615608-27-2024 Progress note Author Isaac Edwards [facility] January 20, 2024 12:59pmNote Date/TimeAugust 2023 8:53[place] [address] Pulmonology Progress Note Signed Patient: Alex Anderson MR#: [id number] : 1945 Acct:[id number] Age/Sex: 78 / M Adm Date: 4 Loc: Room: [address] [place] [address] Type: ADM IN Attending Dr: Nas Pruett [...] <Electronically signed by MD Isaac Edwards> 01/20/24 1255 [facility] Work Phone: 1(167) 629-361208-26-2024 Progress note Author Isaac Edwards [facility] January 19, 2024 1:20pmNote Date/TimeAugust 2023 9:06[place] [address] Pulmonology Progress Note Signed with Addenda Patient: Alex Anderson MR#: [id number] : 1945 Acct:[id number] Age/Sex: 78 / M Adm Date: 4 Loc: Room: [address] [place] [address] Type: ADM IN Attending Dr: Nas Pruett [...] signed by MD Isaac Edwards> 01/19/24 1219 [facility] Work Phone: 1(882) 407-108408-26-2024 Progress note Author Teo Al [facility] January 19, 2024 12:11pmNote Date/TimeAugust 2023 12:11pm[place] [address] Cardiology Progress Note Signed Patient: Alex Anderson MR#: [id number] : 1945 Acct:[id number] Age/Sex: 78 / M Adm Date: 4 Loc: Room: [address] [place] [address] Type: ADM IN Attending Dr: Nas Pruett [...] Air 2 01/19/24 04:00 01/19/24 11:01/19/24 11:01/19/24 11:00 01/19/24 11:01/19/24 11:01/19/24 10:00 Const General: cooperative, comfortable [...] % (Auto) 78.5 Lymph % (Auto) 8.8 [place] % (Auto) 11.9 Eos % (Auto) 0.4 Baso % (Auto) 0.4 Nucleat RBC Rel Count 0.1 Neut # (Auto) 8.6 H Lymph # (Auto) 1.0 [place] # (Auto) 1.3 H Eos # (Auto) [...] heart failure Documented By: Teo Al MD, [facility] 4 1206 Signed By: <Electronically signed by [facility] Teo Al> 01/19/24 1211 [facility] Work Phone: 1(284) 827-753508-25-2024 Progress note Author Justina Lara [facility] January 18, 2024 3:10pmNote Date/TimeAugust 2023 3:10pm[place] [address] Pulmonology Progress Note Signed Patient: Alex Anderson MR#: [id number] : 1945 Acct:[id number] Age/Sex: 78 / M Adm Date: 4 Loc: Room: [address] [place] [address] Type: ADM IN Attending Dr: Nas Pruett [...] managing post PCI/stent in LAD for acute CT. He is on beta- maldonado, antiplatelets, statin, [...] following Documented By: Justina Lara MD 01/18/24 1136 Signed By: <Electronically signed by Justina Lara MD> 01/18/24 4187 [facility] Work Phone: 1(160) 314-113808-25-2024 Progress note Author Ana Castro [facility] January 18, 2024 12:49pmNote Date/TimeAugust 2023 12:50pm[place] [address] Cardiology Progress Note Signed Patient: Alex Anderson MR#: [id number] : 1945 Acct:[id number] Age/Sex: 78 / M Adm Date: 4 Loc: Room: [address] [place] [address] Type: ADM IN Attending Dr: Nas Pruett [...] MPV Neut % (Auto) Lymph % (Auto) [place] % (Auto) Eos % (Auto) Baso % (Auto) Nucleat RBC Rel Count Neut # (Auto) Lymph # (Auto) [place] # (Auto) Eos # (Auto) Baso # (Auto) PHA Creatinine Clear Sodium Potassium Chloride Carbon Dioxide Anion Gap BUN Creatinine Est GFR (CKD-EPI) Glucose POC Glucose 115 126 Calcium Urine Color Light-yellow Urine Appearance Cloudy A Urine pH 6.0 Ur Specific [place] 1.018 Urine Protein Trace H Urine Glucose [...] % (Auto) 75.1 Lymph % (Auto) 11.5 [place] % (Auto) 12.8 Eos % (Auto) 0.2 Baso % (Auto) 0.4 Nucleat RBC Rel Count 0.0 Neut # (Auto) 9.1 H Lymph # (Auto) 1.4 [place] # (Auto) 1.5 H Eos # (Auto) 0.0 Baso # (Auto) 0.0 PHA Creatinine Clear 46.65 Sodium 136 Potassium 3.7 Chloride 107 Carbon Dioxide 21.2 Anion Gap 11.5 BUN 29 H Creatinine 1.59 H Est GFR (CKD-EPI) 43.613 Glucose 125 H POC Glucose Calcium 8.7 Urine Color Urine Appearance Urine pH Ur Specific [place] Urine Protein Urine Glucose (UA) Urine Ketones [...] signed by MD Ana Castro> 01/18/24 1249 [facility] Work Phone: 1(493) 310-277908-24-2024 Progress note Author Ana Castro [facility] January 17, 2024 12:43pmNote Date/TimeAugust 2023 12:43pm[place] [address] Cardiology Progress Note Signed Patient: Alex Anderson MR#: [id number] : 1945 Acct:[id number] Age/Sex: 78 / M Adm Date: 4 Loc: Room: [address] [place] [address] Type: ADM IN Attending Dr: Nas Pruett [...] MPV Neut % (Auto) Lymph % (Auto) [place] % (Auto) Eos % (Auto) Baso % (Auto) Nucleat RBC Rel Count Neut # (Auto) Lymph # (Auto) [place] # (Auto) Eos # (Auto) Baso # (Auto) Platelet Estimate Plt Morphology Comment RBC Morphology PHA Creatinine Clear Sodium Potassium Chloride Carbon Dioxide Anion Gap BUN Creatinine Est GFR (CKD-EPI) Glucose POC Glucose POC Glucose Comment Calcium Troponin I High Sens 66665.4 H* 961949.2 H* 258331.4 H* Triglycerides Cholesterol LDL Cholesterol, Calc VLDL Cholesterol HDL Cholesterol Cholesterol/HDL Ratio 01/16/24 01/16/24 01/16/24 18:37 19:15 21:31 Corrected WBC Uncorrected WBC Count RBC Hgb Hct MCV MCH MCHC RDW Plt Count MPV Neut % (Auto) Lymph % (Auto) [place] % (Auto) Eos % (Auto) Baso % (Auto) Nucleat RBC Rel Count Neut # (Auto) Lymph # (Auto) [place] # (Auto) Eos # (Auto) Baso # (Auto) Platelet Estimate Plt Morphology Comment RBC Morphology PHA Creatinine Clear Sodium Potassium Chloride Carbon Dioxide Anion Gap BUN Creatinine Est GFR (CKD-EPI) Glucose POC Glucose 119 118 POC Glucose Comment Glu2: cleaned meter Calcium Troponin I High Sens 22271.2 H* Triglycerides Cholesterol LDL Cholesterol, Calc VLDL Cholesterol HDL Cholesterol Cholesterol/HDL Ratio 01/17/24 01/17/24 01/17/24 04:37 07:14 11:52 Corrected WBC 17.7 H Uncorrected WBC Count 17.7 H RBC 4.46 Hgb 12.7 L Hct 38.4 L MCV 86.1 MCH 28.4 MCHC 33.0 RDW 15.8 H Plt Count 135 L MPV 9.0 Neut % (Auto) 77.1 Lymph % (Auto) 6.9 [place] % (Auto) 15.6 Eos % (Auto) 0.0 Baso % (Auto) 0.4 Nucleat RBC Rel Count 0.0 Neut # (Auto) 13.6 H Lymph # (Auto) 1.2 [place] # (Auto) 2.8 H Eos # (Auto) [...] Comment Calcium 8.9 Troponin I High Sens 02413.6 H* Triglycerides 67 Cholesterol 74 L LDL [...] signed by MD Ana Castro> 01/17/24 1243 [facility] Work Phone: 1(664) 843-623408-24-2024 Progress note Author Justina Lara [facility] January 17, 2024 11:57amNote Date/TimeAugust 2023 11:54[place] [address] Pulmonology Progress Note Signed Patient: Alex Anderson MR#: [id number] : 1945 Acct:[id number] Age/Sex: 78 / M Adm Date: 4 Loc: Room: [address] [place] [address] Type: ADM IN Attending Dr: Nas Pruett [...] managing post PCI/stent in LAD for acute CT. He is on beta- maldonado, antiplatelets, statin, [...] signed by Justina Lara MD> 01/17/24 1157 [facility] Work Phone: 1(786) 823-340208-23-2024 Consult note Author Justina Lara [facility] January 16, 2024 3:19pmNote Date/TimeAugust 2023 3:16pm[place] [address] Pulmonology Consult Note Signed Patient: Alex Anderson MR#: [id number] : 1945 Acct:[id number] Age/Sex: 78 / M Adm Date: 4 Loc: Room: [address] [place] [address] Type: REG SDC Attending Dr: Nas Pruett [...] abdominal pain nausea was diagnosed with acute CT and transferred from [facility]. He underwent left heart catheterization and stent in mid LAD Review of Systems Review of Systems All other systems reviewed & are negative unless noted below or in HPI Constitutional Constitutional: Reports as per HPI Cardiovascular Cardiovascular: Reports as per HPI and Reports chest pain at rest [facility] Medical History (Updated 01/16/24 @ 12:52 [...] cancer Son [facility]: Diagnosed with Mental Illness Social [...] managing post PCI/stent in LAD for acute CT. He is on beta- maldonado, antiplatelets, statin, antihypertensive medication per cardiology Monitor creatinine post cath Bronchodilators as needed for COPD Chest x-ray in a.m. DVT prophylaxis Lovenox Documented By: Justina Lara MD 01/16/24 1509 Signed By: <Electronically signed by Justina Lara MD> 01/16/24 3167 [facility] Work Phone: 1(977) 706-501508-23-2024 History and physical note Author Nas Pruett [facility] January 16, 2024 12:53pmNote Date/TimeAugust 2023 12:45pm[place] [address] Cardiology H&P Signed Patient: Alex Anderson MR#: [id number] : 1945 Acct:[id number] Age/Sex: 78 / M Adm Date: 4 Loc: Room: [address] [place] [address] Type: [facility] Attending Dr: Nas Pruett DO Copies to: MD Nas Richards, ~ Date of Service: 01/16/2024 Cardiology HPI History of Present Illness Chief complaint: Anterior STEMI HPI: Mr. Anderson is a 78 year old male transferred from [place] with acute anterior ST elevation CT; original phone call taken from outside ER attending at 09:30 AM. Patient arrived in Telephone Operator Receptionist at 1116, after attempted right femoral approachand [...] (beginning of his suspectedsymptomatology); finally went to [place] ER around 02-01 30 this morning whereupon he was appropriately he diagnosed, appropriate upstream therapy instituted under my direction after discussion with ER attending, and emergently transferred to [facility] for [facility]. Total 60 minutes nonprocedural critical care time were devoted to the outside ERattending and staff, Telephone Operator Receptionist staff, nursing staff, patient and family pre and post procedurally Review of Systems Review of Systems All other systems reviewed & are negative unless noted below or in HPI Constitutional Constitutional: Reports as per HPI Cardiovascular Cardiovascular: Reports as per HPI and Reports chest pain at rest [facility] Medical History (Updated 01/16/24 @ 12:52 [...] Son Family history of mental disorder [facility] Problem: Diagnosed with Mental Illness Social History [...] Interpretations EKG EKG results cardiology: sinus rhythm CT, pacemaker, normal Myocardial infarction: anterior CT (acute or recent) A&P - Cardiology (1) [...] signed by Nas Pruett DO> 01/16/24 1253 [facility] Work Phone: 1(632) 689-517308-23-2024 Procedure [facility]08-23-2024 Procedure [facility]08-21-2024 Procedure [facility]05-10-2024 Hospital Discharge instructions Patient Education 10/03/2023 [...] Follow these instructions at home: Medicines Take zenp-dob-ixggucf and prescription medicines only as told by [...] provider. Document Revised: 01/31/2021 Document Reviewed: 01/31/2021 [employer] Patient Education 2022 [employer]. Follow Up Care 08/15/2023 11:04:15 With:ARLENE CSAILLAS, Katia Macias, URL Address: [facility] [address] , [place] [address]- [phone] When: Unknown [facility] 02-05-2024 Hospital Discharge instructions Patient Education [...] Follow these instructions at home: Medicines Take vjcz-pfl-qohvjwe and prescription medicines only as told by [...] provider. Document Revised: 01/31/2021 Document Reviewed: 01/31/2021 [employer] Patient Education 2022 [employer]. Follow Up Care 05/06/2023 11:11:29 With:ARLENE CASILLAS, Katia Macias, URL Address: [facility] [address] , [place] [address]- [phone] When: Unknown Comments:1 day for catheter removal [facility] 01-16-2024 Hospital Discharge instructions Patient Education 06/10/2023 [...] cotton underwear to absorb moisture and keep port drier. 6. Keep the drainage bag below [...] With:Katia SAMUELS Address: [facility] [address] [place] [address]- Business (1) When:06/24/2023 15:15:55 Comments:for zapien removal [facility]12-12-2023 Evaluation note* Encounter Date Diagnosis Assessment Notes Treatment Notes Treatment Clinical Notes Apr, Primary hypertension (ICD-10 - I 10) [facility] Other [id number] Evaluation note* Encounter Date Diagnosis Assessment Notes [...] supplement. I asked the patient to continue frwg-osq-olkiprx iron supplement once or twice daily Mar,rimary hypertension (ICD-10 - I10)BP is elevated. Will start Norvasc 5 mg PO daily. i asked the patient to monitor Bp closely with tapering steroid dose [facility] Other 10-17-2023 Hospital Discharge instructions Patient Education [...] including vitamins, herbs, eye drops, creams, and bvtb-hya-nbruaky medicines. Any problems you or family members [...] provider tells you to take them. Taking gpaz-gxf-qpjfgxd medicines, vitamins, herbs, and supplements. Surgery safety [...] provider. Document Revised: 02/05/2022 Document Reviewed: 02/05/2022 [employer] Patient Education 2022 [employer]. 03/11/2023 14:15:06 Benign Prostatic Hyperplasia Benign Prostatic [...] urethra. Follow these instructions at home: Take folc-dev-nfmromk and prescription medicines only as told by [...] provider. Document Revised: 11/28/2021 Document Reviewed: 11/28/2021 [employer] Patient Education 2022 [employer]. Follow Up Care 02/07/2023 16:01:50 With:ARLENE CASILLAS, Katia Macias, URL Address: [facility] [address] , [place] [address]- When:Within 3 Month(s) Comments:Sched cysto/FISH/Cytol/BT check [facility] 10-17-2023 Evaluation + Plan note Diagnostic Tests Pending * UroVysion Fish and Urine Cyto ([facility]) 03/11/23 [facility]07-18-2023 Evaluation + Plan note Diagnostic Tests Pending * UroVysion Fish and Urine Cyto ([facility]) 12/10/22 [facility]07-18-2023 Hospital Discharge instructions Patient Education 12/10/2022 08:17:13 [...] if anything looks unusual. Men with a prlsfd-zels-aousbe risk for skin cancer may want to see a ergonomic specialist (paper slitter) for an annual body check. What are the benefits of screening? Cancer screening is done to look for cancer in the very early stages, before it spreads and becomesharder to treat and before you would start to notice symptoms. Finding cancer early improves the chances of successful treatment. It may save your life. Where to find more information [place] Cancer Society: www.cancer.org Centers for Disease Control and Prevention: www.cdc.gov National Cancer [place]: www.cancer.gov Contact a health care provider if: [...] provider. Document Revised: 10/08/2021 Document Reviewed: 04/07/2020 [employer] Patient Education 2022 [employer]. Follow Up Care 11/15/2022 14:27:10 With:ARLENE CASILLAS, Katia Macias, URL Address: [facility] [address] , [place] [address]- When: Unknown [facility] 04-26-2023 Hospital Discharge instructions Patient Education [...] cells. Follow these instructions at home: Take fhdq-nbe-ofltefr and prescription medicines only as told by [...] is important. Where to find more information [place] Cancer Society (ACS): cancer.org National Cancer [place] (NCI): cancer.gov Contact a health care provider [...] provider. Document Revised: 04/22/2022 Document Reviewed: 04/22/2022 [employer] Patient Education 2022 [employer]. Follow Up Care 08/26/2022 14:12:46 With:ARLENE CASILLAS, Katia Macias, URL Address: [facility] [address] , [place] [address]- When: Unknown [facility] 04-10-2023 NoteEXAM: XR CHEST 2 V HISTORY: Pre-surgery evaluation COMPARISON: None. TECHNIQUE: PA and lateral views of the chest. FINDINGS: The cardiomediastinal silhouette is normal. No focal consolidation is identified. There is no pneumothorax. No pleural effusion is noted. The osseous structures are intact. IMPRESSION: No acute cardiopulmonary process. Electronically authenticated by: CORKY FORD Date: 2022-09-02 14:17[facility]03-29-2023 Evaluation note* Encounter Date Diagnosis Assessment [...] have his bladder tumor removal as scheduled. [facility] Other 03-08-2023 Evaluation + Plan note Diagnostic Tests Pending * UroVysion Fish and Urine Cyto ([facility]) 07/31/[address] [facility] [address] [facility] 03-08-2023 Hospital Discharge instructions Patient Education [...] including vitamins, herbs, eye drops, creams, and wnzo-mad-zfrlajj medicines. Any problems you or family members [...] provider tells you to take them. Taking ymfd-xyc-vzidczy medicines, vitamins, herbs, and supplements. Tests You [...] 03/08/2010 Document Revised: 12/11/2018 Document Reviewed: 12/11/2018 [employer] Patient Education 2020 [employer]. Follow Up Care 07/25/2022 10:56:51 With:ARLENE CASILLAS, Katia Macias, URL Address: [facility] [address], [place] [address]- When: Unknown [facility] 03-02-2023 Evaluation note* Encounter Date Diagnosis Assessment [...] some bladder issues. I did call the [employer]. The device is compatible up to 3 Maggi for MRI. I explained this to the family and the patie nt. Jul,Other specified postprocedural states (ICD-10 - Z98.890) Jul,ersonal history of other diseases of the circulatory system (ICD-10 - Z86.79) [facility] Other [facility]01-25-2023 Evaluation note* Encounter Date Diagnosis Assessment [...] plan to do this percutaneously under MAC. [facility] Other 01-17-2023 Hospital Discharge instructions Patient Education [...] including vitamins, herbs, eye drops, creams, and zyzv-ghf-mkevxsb medicines. Any problems you or family members [...] provider tells you to take them. ?Taking iyxx-dgl-niyvteh medicines, vitamins, herbs, and supplements. Follow instructions [...] Follow these instructions at home: Medicines Take inwa-njy-norkglt and prescription medicines only as told by [...] 05/09/2001 Document Revised: 05/04/2019 Document Reviewed: 05/04/2019 [employer] Patient Education 2020 [employer] Follow Up Care 05/22/2022 13:37:28 With:[facility] Address: [address] [address] Business (1) When: Unknown Comments:our manager digital ad operations will be contacting you for follow-up [facility] 01-12-2023 Evaluation note* Encounter Date [...] to proceed all his questions were addressed. [facility] Other 01-10-2023 Evaluation note* Encounter Date Diagnosis [...] (ICD-10 - E78.5) Patient is on statin [facility] Other Discharge summary Author Teo Al [facility] January 23, 2024 3:52pmNote Date/TimeAugust 2023 3:52pm[place] [address] Discharge Summary Signed Patient: Alex Anderson MR#: [id number] : 1945 Acct:[id number] Age/Sex: 78 / M Adm Date: 4 Loc: Room: [address] [place] [address]: Nas Pruett DO Copies to: MD Teo Richards MD, FACC Nas Pruett, ~ Providers Date of Discharge: 01/23/24 Discharging Provider: Teo Al Primary Care Provider: Stanley Emerson Consults: 01/16/24 12:54 Consult to Pulmonology Routine Comment: Consulting Provider: [facility] - Pulmon, CC & Sleep Med Reason [...] Consult to Physiatry Routine Comment: Consulting Provider: [facility] - Phys Med - Rehab [...] Course Hospital course: Patient was transferred from [facility] emergency department with anterior ST elevation myocardial infarction and was taken straight to the Telephone Operator Receptionist by Dr. Pruett and underwent urgent PCI [...] DO p CL Iliac/Fem w/LHC - W Dairusz Pruett DO Discharge Plan Discharge Plan Patient [...] doctor or pharmacist, without first calling the layout former who implanted the stent. If you require [...] weight lifting, stair steppers, etc. until the layout former approves these activities. Check with the layout former on your first follow-up visit. CALL YOUR JEWEL SUPERVISOR: -If bleeding should occur from the catheter insertion site- apply pressure to the site then immediately call us. -Report any fever, redness, drainage, increased swelling, or firmness at the catheter insertion site. Some bruising or slight swelling may be present at thetime of discharge. -Should arm or leg become cold, numb, white, or blue, contact the layout former immediately. -IF you should experience episodes of [...] Cardiopulmonary Rehabilitation program is recommended. The attending layout former or a nurse clinician should provide you with specificinstructions regarding activity, diet, medications, and further follow up for you. Follow the medication instructions provided on your discharge. If the dosages and instructions on this sheet differ from the dosage and instructions on the bottle, follow the instructions on the bottle. [facility] is not responsible for incorrect prescription [...] Clear, Urine pH 5.5, Ur Specific [place] 1.022, Urine Protein Trace H, Urine Glucose (UA) Normal, Urine Ketones Negative, Urine Occult Blood 2+ H,Urine Nitrite Negative, Urine Bilirubin Negative, Urine Urobilinogen 2 H, Ur Leukocyte Esterase 4+ H, Urine RBC 20-49 H, Urine WBC 20-49 H, Urine WBC Clumps Rare H, Ur Squamous Epith CellsN/A, Urine Bacteria Rare, Hyaline Casts None, Urine Mucus Rare Documented By: Teo Al MD, [facility] [id number] Signed By: <Electronically signed by MD [place] Al> 01/23/24 1552 [facility] Work Phone: Evaluation + Plan note No data available for this section [facility] evaluation + Plan note Future Appointments Appointment Date:10/04/2022 10:00:00 AM Scheduled Provider: Location:[facility] Appointment Type:URO Nurse Visit [facility] Evaluation + Plan note Future Appointments Appointment Date:06/16/2023 10:00:00 AM Scheduled Provider: Location:[facility] Appointment Type:URO Nurse Visit Appointment Date:06/30/2023 01:30:00 PM Scheduled Provider:Katia SAMUELS MD [facility] Office Visit Diagnostic Tests Pending * UroVysion Fish and Urine Cyto ([facility]) [facility] App[facility]ments Appointment Date:06/30/2023 01:30:00 PM Scheduled Provider:Katia SAMUELS MD [facility] Type[facility] Office Visit [facility] evaluation + Plan note Future Appointments Appointment Date:07/01/2023 08:30:00 AM Scheduled Provider: Location:[facility] Appointment Type:URO Nurse Visit [facility] evaluation + Plan note Future Appointments Appointment Date:09/09/2023 02:15:00 PM Scheduled Provider:Katia SAMUELS MD Location:[facility] Appointment Type:URO Procedure 15 min [facility] Evaluation + Plan note Future Appointments Appointment Date:10/07/2023 02:45:00 PM Scheduled Provider:Katia SAMUELS MD Location:[facility] Appointment Type:URO Procedure 15 min [facility] evaluation + Plan note Future Appointments Appointment Date:10/31/2023 11:00:00 AM Scheduled Provider: Location:[facility] [place] Appointment Type:URO Nurse Visit [facility] Evaluation + Plan note Future Appointments Appointment Date:10/31/2023 11:00:00 AM Scheduled Provider: Location:[facility] Appointment Type:URO Nurse Visit Diagnostic Tests Pending * UroVysion Fish and Urine Cyto ([facility]) [facility]03[facility] App[facility]ments Appointment Date:11/04/2023 10:30:00 AM Scheduled Provider: Location:[facility] Appointment Type:URO Nurse Visit [facility] Evaluation + Plan note Future Appointments Appointment Date:12/02/2023 11:00:00 AM Scheduled Provider:TC Boles APRN, [place] Location:[facility] Appointment Type:URO Office Visit [facility] evaluation + Plan note Future Appointments Appointment Date:01/20/2024 11:30:00 AM Scheduled Provider:TC Boles APRN, [place] Location:[facility] Appointment Type:URO Office Visit [facility] evaluation + Plan note Future Appointments Appointment Date:04/06/2024 11:00:00 AM Scheduled Provider:Katia SAMUELS MD Location:[facility] Appointment Type:URO Procedure 15 min [facility] evaluation + Plan note Future Appointments Appointment Date:05/06/2024 12:30:00 PM Scheduled Provider:Fabi Antonio Location:[facility] Appointment Type:URO Office Visit Appointment Date:10/05/2024 02:00:00 PM Scheduled Provider:Katia SAMUELS MD [facility] Type:[facility]O Procedure 15 [facility] evaluation + Plan note Future Appointments Appointment Date:05/06/2024 12:30:00 PM Scheduled Provider:Fabi Antonio Location:[facility] Appointment Type:URO Office Visit Appointment Date:10/05/2024 02:00:00 PM Scheduled Provider:Katia SAMUELS MD Location:[facility] Appointment Type:URO Procedure 15 min Diagnostic Tests Pending * UroVysion Fish and Urine Cyto ([facility]) 04/06/24 [facility] Evaluation + Plan note Future Appointments Appointment Date:06/29/2024 10:00:00 AM Scheduled Provider:HEATEHR OMALLEY PA-C Location:[facility] Appointment Type:URO Office Visit Appointment Date:10/05/2024 02:00:00 PM Scheduled Provider:Katia SAMUELS MD Location:[facility] Appointment Type:URO Procedure 15 min [facility] Evaluation + Plan note Future Appointments Appointment Date:08/12/2024 11:20:00 AM Scheduled Provider:HEATHER OMALLEY PA-C Location:[facility] Appointment Type:URO Complex Office Visit Appointment Date:10/05/2024 02:00:00 PM Scheduled Provider:Katia SAMUELS MD Location:[facility] Appointment Type:URO Procedure 15 min [facility] evaluation + Plan note Future Appointments Appointment Date:11/16/2024 02:00:00 PM Scheduled Provider:Katia SAMUELS MD Location:[facility] Appointment Type:URO Procedure 15 min [facility] evaluation + Plan note Future Appointments Appointment Date:12/14/2024 11:00:00 AM Scheduled Provider:Eboni Anderson PA-C Location:[facility] Appointment Type:URO Office Visit [facility] evaluation + Plan note Future Appointments Appointment Date:12/14/2024 11:00:00 AM Scheduled Provider:Eboni Anderson PA-C Location:[facility] Appointment Type:URO Office Visit Diagnostic Tests Pending * UroVysion Fish and Urine Cyto ([facility]) 11/16/24 [facility] Evaluation + Plan note Future Appointments Appointment Date:01/12/2025 12:30:00 PM Scheduled Provider:Eboni Anderson PA-C Location:[facility] Appointment Type:URO Office Visit [facility] evaluation + Plan note Future Appointments Appointment Date:02/10/2025 01:50:00 PM Scheduled Provider:CT Boles APRN, [place] Location:[facility] Appointment Type:URO Office Visit [facility] evaluation + Plan note Future Appointments Appointment Date:03/10/2025 01:50:00 PM Scheduled Provider:TC Boles APRN, [place] Location:[facility] Appointment Type:URO Office Visit [facility] evaluation + Plan note Future Appointments Appointment Date:04/07/2025 11:00:00 AM Scheduled Provider:TC Boles APRN, [place] Location:[facility] Appointment Type:URO Complex Office Visit [facility] evalnorgqy note* Diagnosis Onset Date Resolution Status AAA (abdominal aortic aneurysm) acuteAcute kidney injuryacuteAcute metabolic encephalopathyacuteBilateral hydronephrosisacuteBladder massacuteDiarrheaacuteFolic acid deficiencyacute HyperkalemiaacuteMetabolic acidosisacutePre-operative cardiovascular examination, bradyarrhythmiaacute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acute SundowningacuteTIA (transient ischemic attack)acuteTobacco abuseacuteUTI (urinary tract infection)acuteVitamin B 12 deficiencyacute [facility] Work Phone: Evaluation noteNo assessment information available [facility] Work Phone: Evaluation noteNo [facility] [employer] Other Evaluation note* Diagnosis Onset Date Resolution Status Status post endovascular aneurysm repair (EVAR) acuteAbdominal aortic aneurysm without ruptureacuteAnemiaacuteChronic kidney disease, stage 3bacuteHyperlipidemiaacuteHypertensive nephropathyacuteIron deficiencyacuteObstructive nephropathyacute [facility] Work Phone: Evaluation note* Diagnosis Onset Date Resolution Status Abdominal aortic aneurysm without ruptur e acuteAnemiaacuteChronic kidney disease, stage 3bacuteHyperlipidemiaacute Hypertensive nephropathyacuteIron deficiencyacuteObstructive nephropathyacute [facility] Work Phone: Evaluation note* Diagnosis Onset Date Resolution Status Abdominal aortic aneurysm without ruptur e acuteAtrial fibrillation, new onsetacuteChronic kidney disease, stage 3bacute Chronic systolic heart failureacuteDeliriumacuteHyperlipidemiaacuteHypertension acuteHypertensive nephropathyacuteHypotensionacuteImpaired mobility and activities of daily livingacuteIron deficiencyacuteIschemic cardiomyopathyacute Sleep-wake cycle disorderacuteST elevation myocardial infarction (STEMI) of anterior wallacuteStatus post endovascular aneurysm repair (EVAR)acuteStented coronary arteryacute [facility] Work Phone: Evaluation note* [...] disease, stage 3bacuteHyperlipidemiaacute Hypertensive nephropathyacuteIron deficiencyacuteObstructive nephropathyacute [facility] Work Phone: Evaluation note* Diagnosis Paroxysmal atrial fibrillation (Multi) Atrial fibrillation documented in this encounter [facility] Work Phone: Evaluation note* Diagnosis Pneumonia of left lower lobe due to infectious organism- Primary Simple chronic bronchitis (CMS/HCC) Simple chronic bronchitis documented in this encounter [facility] HealthcareEvaluation note* Diagnosis Onset Date Resolution Status [...] stage 3bacuteHyperlipidemiaacute Hypertensive nephropathyacuteIron deficiencyacuteObstructive nephropathyacute [facility]non[facility] Work Phone: Evaluation note* Diagnosis [...] nephropathyacuteIron deficiencyacuteObstructive nephropathyacute Chest congestionnoneactiveRight lower lobe pneumonianonK[facility]tering Health [facility] Work Phone: Evaluation note* Diagnosis Pneumonia of right lower lobe due to infectious organism documented in this encounter [facility] HealthcareEvaluation note* Diagnosis 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- Primary Paroxysmal atrial [...] health QT prolongation documented in this encounter [facility] Work Phone: Evaluation note* Diagnosis Simple chronic bronchitis (CMS/HCC) Simple chronic bronchitis documented in this encounter [facility] HealthcareEvaluation note* Diagnosis Paroxysmal atrial fibrillation (Multi) Atrial fibrillation High risk medication use 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 S/P PTCA (percutaneous transluminal coronary angioplasty) Postsurgical percutaneous transluminal coronary angioplasty status ST elevation myocardial infarction (STEMI), unspecified artery (Multi) Cardiomyopathy, ischemic Other specified forms of chronic ischemic heart disease Essential hypertension Unspecified essential hypertension Dyslipidemia Other and unspecified hyperlipidemia Abdominal aortic aneurysm (AAA) greater than 5.5 cm in diameter in male ([facility]) Transient cerebral ischemia, unspecified type Stage 3a chronic kidney disease (Multi) BMI 26.0-26.9,adult Former smoker Personal history of tobacco use, presenting hazards to health documented in this encounter [facility] Work Phone: Evaluation note* Diagnosis Essential [...] ischemic heart disease 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 Paroxysmal atrial fibrillation (Multi) Atrial fibrillation High risk medication use S/P PTCA (percutaneous transluminal coronary angioplasty) Postsurgical percutaneous transluminal coronary angioplasty status ST elevation myocardial infarction (STEMI), unspecified artery (Multi) Infrarenal abdominal aortic aneurysm (AAA) without rupture ([facility]) Essential hypertension Unspecified essential hypertension Dyslipidemia Other and unspecified hyperlipidemia Stage 3a chronic kidney disease (Multi) Transient cerebral ischemia, unspecified type Hematuria, unspecified type Hyperthyroidism Thyrotoxicosis without mention of goiter or other cause, without mention of thyrotoxic crisis or storm BMI 26.0-26.9,adult Former smoker Personal history of tobacco use, presenting hazards to health documented in this encounter [facility] Work Phone: Evaluation note* Diagnosis ST elevation myocardial infarction (STEMI), unspecified artery (Multi) Cardiomyopathy, ischemic Other specified forms of chronic ischemic heart disease 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 S/P PTCA (percutaneous transluminal coronary angioplasty) Postsurgical percutaneous transluminal coronary angioplasty status documented in this encounter [facility] Work Phone: Evaluation note* Diagnosis Onset Date Resolution Status Admit Date Abdominal aortic aneurysm [facility]ur [facility] 10:25amAnemiaacute[facility] 2024 10:25amCHF (congestive heart failure)[facility] 2024 10:25amChronic kidney disease, stage 3bacute August 11, 2024 10:25amHyperlipidemiaacute[facility] 2024 10:25amHypertensive nephropathyacute[facility] 2024 10:25amIron deficiencyacuteMetrohealth [facility] 2024 10:25amObstructive nephropathyacute[facility] 2024 10:25am 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 S/P PTCA (percutaneous [...] health BMI 26.0-26.9,adult documented in this encounter [facility] Work Phone: Evaluation note* Diagnosis 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 disturbance, psychotic disturbance, mood disturbance, or anxiety ([facility]) Hallucinations Need for prophylaxis against urinary tract infection Indwelling urinary catheter present Former smoker Personal history of tobacco use, presenting hazards to health Polypharmacy Issue of repeat prescriptions Overweight documented in this encounter [facility] HealthcareEvaluation note* Diagnosis Community acquired [...] Acute metabolic encephalopathy [facility] Cardiomyopathy, ischemic- Primary Other specified [...] Unspecified cardiac dysrhythmia documented in this encounter [facility] Work Phone: Evaluation note* Diagnosis Peripheral vascular disease ([facility])- Primary Unspecified peripheral vascular disease Presence of stent in artery Encounter for examination following treatment at hospital Pneumonia of left lower lobe due to infectious organism Lower extremity edema Edema Delirium due to another medical condition documented in this encounter [facility] HealthcareEvaluation note* Diagnosis Pneumonia of left lower lobe due to infectious organism Encounter for examination following treatment at hospital Lower extremity edema Edema Delirium due to another medical condition documented in this encounter [facility] HealthcareEvaluation note* Diagnosis Venous insufficiency of both lower extremities- Primary Venous stasis dermatitis of right lower extremity 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 disturbance, psychotic disturbance, mood disturbance, or anxiety (HCC) documented in this encounter [facility] HealthcareEvaluation note* Diagnosis Onset Date Resolution Status Admit Date Abdominal aortic aneurysm without ruptur e acuteOctober 2024 2:22pmAnemiaacuteOctober 2024 2:22pmCHF (congestive heart failure)acuteOctober 2024 2:22pmChronic kidney disease, stage 3bacuteOctober 2024 2:22pmHyperlipidemiaacuteOctober 2024 2:22pmHypertensive nephropathyacuteOctober 2024 2:22pmHypokalemiaacute October 2024 2:22pmIron deficiencyacuteOctober 2024 2:22pm Obstructive nephropathyacuteOctober 2024 2:22pm [facility] Work Phone: History and physical note Author Willy Lambert [facility] January 14, 2024 8:46amNote Date/TimeAugust 2023 8:[place] [address] Gastroenterology H&P Signed Patient: Alex Anderson MR#: [id number] : 1945 Acct:[id number] Age/Sex: 78 / M Adm Date: 4 Loc: Room: Type: [facility] Attending Dr: Willy Lambert MD Copies to: [...] signed by Willy Lambert MD> 01/14/24 0846 [facility] Work Phone: History general Narrative - Reported* Type Description Date Medical History ACUTE KIDNEY INJURY Medical HistoryOBSTRUCTIVE UROPATHYMedical HistoryPRE-OPERATIVE CARDIOVASCULAR EXAMINATION, BRADYARRHYTHMIAMedical HistoryBILATERAL HYDRONEPHROSISMedical HistoryBLADDER MASSMedical HistoryAAA (ABDOMINAL AORTIC ANEURYSM)Medical History TOBACCO ABUSEMedical HistoryDEMENTIAMedical HistorySUNDOWNINGMedical History VITAMIN B 12 DEFICIENCYMedical HistoryFOLIC ACID DEFICIENCYSurgical History KIDNEY STONE REMOVEDHospitalization HistoryACUTE KIDNEY INJURY, 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, BLADDER MASS05/16/22 [facility] Other History general Narrative - Reported* Type Description Date Medical History ACUTE KIDNEY INJURY Medical HistoryOBSTRUCTIVE UROPATHYMedical HistoryPRE-OPERATIVE CARDIOVASCULAR EXAMINATION, BRADYARRHYTHMIAMedical HistoryBILATERAL HYDRONEPHROSISMedical HistoryBLADDER MASSMedical HistoryAAA (ABDOMINAL AORTIC ANEURYSM)Medical History TOBACCO ABUSEMedical HistoryDEMENTIAMedical HistorySUNDOWNINGMedical History VITAMIN B 12 DEFICIENCYMedical HistoryFOLIC ACID DEFICIENCYSurgical History KIDNEY STONE REMOVEDSurgical HistoryEVARHospitalization HistoryACUTE KIDNEY INJURY, 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, BLADDER MASS05/16/22 [facility] Other History general Narrative - Reported* Type [...] INJURY, 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, BLADDER MASS05/16/22Hospitalization HistorySEE ABOVE [facility] Other Hospital Discharge instructions No data available for this section 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 S/P PTCA (percutaneous transluminal coronary angioplasty) ST elevation myocardial infarction (STEMI), unspecified artery (Multi) Teo Al MD [address] [phone] Referral IDStatusReasonStart DateExpiration DateVisits RequestedVisits [id number] Specialty Services Required / Scheduling Instructions Eva * PFT (Routine) - AuthorizedSpecialtyDiagnoses / ProceduresReferred By Contact Referred To Contact Diagnoses Paroxysmal atrial fibrillation (Multi) High risk medication use Procedures Complete Pulmonary Function Test (Spirometry/DLCO/Lung Volumes) Teo Al MD [address] [facility] [address], [place] [address] [place] [address] Referral IDStatusReasonStart DateExpiration DateVisits RequestedVisits [id number]/17/20249/17/202511 * Imaging (Routine) - AuthorizedSpecialtyDiagnoses / ProceduresReferred By ContactReferred To ContactRadiology Diagnoses Paroxysmal atrial fibrillation (Multi) High risk medication use Procedures XR chest 2 views Teo Al MD [address] [facility] [address], [address] [address] Referral IDStatusReasonStart DateExpiration DateVisits RequestedVisits [id number] Perform Procedure * Consultation (Routine) - AuthorizedSpecialtyDiagnoses / ProceduresReferred By ContactReferred To ContactCardiology Diagnoses Paroxysmal atrial fibrillation (Multi) Procedures Follow Up In Cardiology Teo Al MD [address] [facility] [address], [place] [address] [place] [address] Teo Al MD [address] [facility] [address], [place] [address] [place] [address] Referral IDStatusReasonStart DateExpiration DateVisits RequestedVisits [id number]/17/20249/17/202511 * Cardiovascular (Routine) - AuthorizedSpecialtyDiagnoses / ProceduresReferred By ContactReferred To Contact Diagnoses Paroxysmal atrial fibrillation (Multi) Procedures ECG 12 Lead Al, Bruce M, MD [address] [facility] [address], [place] [address] [place] [address] Referral IDStatusReasonStart DateExpiration DateVisits RequestedVisits [id number]/17/20249/ * Cardiovascular (Routine) - AuthorizedSpecialtyDiagnoses / ProceduresReferred By ContactReferred To Contact Diagnoses Paroxysmal atrial fibrillation (Multi) Procedures ECG 12 Lead Teo Al MD [address] [facility] 2, [address] [address] Referral IDStatusReasonStart DateExpiration DateVisits RequestedVisits [id number]/17/20249/17/202511 [facility] Work Phone: Reason for referral (narrative)No reason for referral information availableMer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 S/P PTCA (percutaneous transluminal coronary angioplasty) Procedures Transthoracic Echo Limited [place] ECHO TRANSTHORC R-T 2D W/WO M-MODE REC F-UP/LMTD [place] DOPPLER ECHO COLOR FLOW VELOCITY MAPPING [place] DOPPLER ECHO PULSE WAVE W/SPECTRAL F-UP/LMTD STD Teo Al MD [address] [facility] [address], [place] [address] [place] [address] Phone: tel: fax: Referral IDStatusReasonStart DateExpiration DateVisits RequestedVisits [id number] Perform Procedure / [facility] Work Phone: Summary Purpose Family History [...] InactivatedComments10/02/2024 10:49 AM10/04/2024 3:24 PMNameRelationshipHealthcare Agent RelationshipCommunicationEllen DaviesSpousePrimary Decision Maker* Antonio AndersonChildSecondary Decision Maker* Lindy AndersonChildSecondary Decision Maker* TypeDate RecordedPatient RepresentativeExplanationACP-Advance Directive10/06/2024 4:23 [...] [facility] month f/uReason for VisitStatus post [...] section and content) DATE CREATED AUTHOR 05/12/2021 [facility] [employer] DATE CREATED AUTHOR AUTHOR'S ORGANIZ ATION 09/23/2022 [facility] DATE CREATED AUTHOR AUTHOR'S ORGANIZ ATION 01/23/2023 [facility] DATE CREATED AUTHOR AUTHOR'S ORGANIZ ATION 01/23/2023 [employer] DATE CREATED AUTHOR AUTHOR'S ORGANIZ ATION 08/03/2024 [facility] DATE CREATED AUTHOR AUTHOR'S ORGANIZ ATION 08/14/2024 [facility] DATE CREATED AUTHOR AUTHOR'S ORGANIZ ATION 10/07/2024 [facility] DATE CREATED AUTHOR AUTHOR'S ORGANIZ ATION 10/08/2024 [facility] DATE CREATED AUTHOR AUTHOR'S ORGANIZ ATION 10/12/2024 [facility] DATE CREATED AUTHOR AUTHOR'S ORGANIZ ATION 11/10/2024 [facility] DATE CREATED AUTHOR AUTHOR'S ORGANIZ ATION 11/12/2024 [facility] DATE CREATED AUTHOR AUTHOR'S ORGANIZ ATION 11/17/2024 [facility] DATE CREATED AUTHOR AUTHOR'S ORGANIZ ATION 12/15/2024 [facility] DATE CREATED AUTHOR AUTHOR'S ORGANIZ ATION 03/11/2025 [facility] DATE CREATED AUTHOR AUTHOR'S ORGANIZ ATION 03/19/2025 [facility] Ambulatory Patient Care team informatio n (unrecognized [...] Start: October 11, 2024 End: October 11, 2024Arabella Llanos ProviderActiveStart: October 11, 2024 End: October 11, 2024 Team Status: Active Member Role Status Dates Stanley Emerson MD Primary Care Provider Active Start: October 11, 2024 Arabella Llanos Provider, Other ProviderActiveStart: October 11, 2024 Team Status: Active Member Role Status Dates Stanley Emerson MD Primary Care Provider Active Start: October 27, 2024 Arabella Bills ProviderActiveStart: October 27, 2024 Team Status: Inactive Member Role Status Dates Stanley Emerson MD Primary Care Provider Active Start: November 03, 2024 End: November 03Arabella Lew ProviderActiveStart: November 03, 2024 End: November 03, [...] ProviderActiveStart: January 16, 2024 End: January 23, 2024Elena Dionne , APRNOther ProviderActiveStart: January 16, 2024 End: January 22enedict Romina Yeboah Jr, DOOther ProviderActiveStart: January 16, 2024 End: January 22monse Hoyt MDOther ProviderActiveStart: January 16, 2024 End: January 22lexnadine Randle RNOther ProviderActiveStart: January 16, 2024 End: January 22lionel Alvarez RNOther ProviderActiveStart: January 16, 2024 End: January 23, 2024Micmaxine Delgado RNOther ProviderActiveStart: January 16, 2024 End: January 23, 2024Jennifer Rogel RNOther ProviderActiveStart: January 16, 2024 End: [...] MDOther ProviderActiveStart: January 16, 2024 End: January 22asschris Sanford MDOther ProviderActiveStart: January 16, 2024 End: January 23, 2024Mamaddi Barnes MDOther ProviderActiveStart: January 16, 2024 End: January 23, 2024Sakate Tran MDOther ProviderActiveStart: January 16, 2024 End: January 23, 2024MicChester Metzger ProviderActiveStart: January 16, 2024 End: January 23, 2024Kyle Ivy MDOther ProviderActiveStart: January 16, 2024 End: January 23, 2024Earromina Jaffe MDOther ProviderActiveStart: January 16, 2024 End: January 22ayah Hernandez NP-COther ProviderActiveStart: January 16, 2024 End: January 22dSmiley Pradhanher ProviderActiveStart: January 16, 2024 End: January 23, [...] ProviderActiveStart: January 16, 2024 End: January 23, 2024Linnesha Obika , APRNOther ProviderActiveStart: January 16, 2024 End: January 23, 2024Jkaob Lomax , DOOther ProviderActiveStart: January 16, 2024 End: January 23, 2024Nick Ken MDOther ProviderActiveStart: January 16, 2024 End: January 22steven Beard , APRNOther ProviderActiveStart: January 16, 2024 End: [...] DOOther ProviderActiveStart: January 16, 2024 Dora Prado , SECOND VP HR ASSESSMENT ACNP-BCOther ProviderActiveStart: January 16, 2024 Isaac Edwards [...] ProviderActiveStart: January 23, 2024 Vidya Hernandez , LIDDER-COther ProviderActiveStart: January 23, 2024 Valdo Sandra , APRNOther ProviderActiveStart: January 23, 2024 Rob Almazan MDOther ProviderActiveStart: January 23, 2024 Danielito Claros MDOther ProviderActiveStart: January 23, 2024 Seb Bonds MDOther ProviderActiveStart: January 23, 2024 Basilio Tam MDOther ProviderActiveStart: January 23, 2024 Reji Garcia MDOther ProviderActiveStart: January 23, 2024 Lydia Rene DOOther ProviderActiveStart: January 23, 2024 Lucas Dumas DOOther ProviderActiveStart: January 23, 2024 Corntey Watkins , APRNOther ProviderActiveStart: January 23, 2024 [...] Monisha Moore RNOther ProviderActiveStart: January 23, 2024 Isaac Edwards , MDAttending ProviderActiveStart: January 23, 2024 Team Status: Active Member Role Status Dates Stanley Emerson MD Primary Care Provider Active Start: January 23, 2024 Nas rPuett , DOAdmit Provider, Other ProviderActiveStart: January 23, 2024 Myesha Feliz MDOther ProviderActiveStart: January 23, 2024 Rogelio Rai MDAttending Provider, Other ProviderActiveStart: January 23, 2024 Heaven Truong , APRNOther ProviderActiveStart: January 23, 2024 Mckay Yeboah Jr, DOOther ProviderActiveStart: January 23, 2024 Ryley Hoyt MDOther ProviderActiveStart: January 23, 2024 Ledy Randle RNOther ProviderActiveStart: January 23, 2024 Thu Alvarez RNOther ProviderActiveStart: January 23, 2024 Jen Delgado , [...] ProviderActiveStart: January 23, 2024 Vidya Hernandez , LIDDER-COther ProviderActiveStart: January 23, 2024 Valdo Sandra , [...] Status Dates Stanley Emerson MD Primary Care [facility], Attending Provider Active Start: September 30, 2023 [...] MD Primary Care Provider Active Taz Barnes MDAdmit ProviderActiveMakaren Valentine MDOther Provider ActiveJanice Gonzalez MDOther ProviderActiveBernabe Cr DOAttclara ProviderActive Team Status: Inactive Member Role Status Dates Stanley Emerson MD Primary Care Provider Active Margarito Valentine MDAdmbunny Provider, Attending ProviderActive Team Status: Inactive Member Role Status Dates Stanley Emerson MD Primary Care Provider Active Becky Garcia ProviderActive Team Status: Inactive Member Role Status Dates Stanley Emerson MD Primary Care Provider Active Celia Griffin MDAttending ProviderActiveHaJUDITH Baltazareferring Provider Active Team Status: Inactive Member Role Status Dates Stanley Emerson MD Primary Care Provider Active Start: August 18, 2023 End: August 18, 2023Makaren Valentine MDAttending ProviderActiveStart: August 18, 2023 End: August 18, 2023 Team Status: Inactive Member Role Status Dates Stanley Emerson MD Primary Care Provider Active Start: September 18, 2023 End: September 18, 2023Makaren Valentine MDAttending ProviderActiveStart: September 18, 2023 End: September 18, 2023 Team Status: Inactive Member Role Status Dates Stanley Emerson MD Primary Care Provider Active Start: February 04, 2024 End: February 03ziabigail Griffin MDAttending ProviderActiveStart: February 04, 2024 End: February 04, 2024Team MemberRelationshipSpecialtyStart DateEnd Date Stanley Emerson MD [address] [address] PCP - Lpifajw98/23/22Team MemberRelationshipSpecialtyStart DateEnd Date Stanley Emerson MD [address] [place] [address] PCP - [facility]10/17/22 Stanley Emerson MD [address] [place] [address] PCP - GeneralFamily Medicine11/20/22 Dora Santiago LPN Licensed Practical NurseFamily Medicine12/22/23Team MemberRelationshipSpecialty Start DateEnd Date Stanley Emerson MD [address] [place] [address] PCP - [facility]10/17/22 Stanley Emerson MD [address] [place] [place] [address] PCP - GeneralFamily Medicine11/20/22 Dora Santiago LPN Licensed Practical Nursemily Medicine12/22/23 Team Status: Inactive Member Role Status [...] ProviderActiveStart: January 16, 2024 End: January 23, 2024Lylinda Velasco APRNOther ProviderActiveStart: January 16, 2024 End: January 23, 2024Jagjit Swenson MDOther ProviderActiveStart: January 16, 2024 End: January 22asschris Sanford MDOther ProviderActiveStart: January 16, 2024 End: January 23, 2024Taz Barnes MDOther ProviderActiveStart: January 16, 2024 End: January 23, 2024Sakate Tran MDOther ProviderActiveStart: January 16, 2024 End: January 23, 2024MicChester Metzger ProviderActiveStart: January 16, 2024 End: January 23, 2024Be Perez ProviderActiveStart: January 16, 2024 End: January 23, 2024EarBe Anderson ProviderActiveStart: January 16, 2024 End: January 22ayah Hernandez LIDDER-COther ProviderActiveStart: January 16, 2024 End: January 22dsusi [...] January 16, 2024 End: January 23, 2024Cortney Bowmanika , APRNOther ProviderActiveStart: January 16, 2024 End: January 23, 2024Jakob Lomax , DOOther ProviderActiveStart: January 16, 2024 End: January 23, 2024Nick Ken MDOther ProviderActiveStart: January 16, 2024 End: January 22aukaleigh Beard , APRNOther ProviderActiveStart: January 16, 2024 End: [...] January 16, 2024 End: January 23, 2024Be Cook ProviderActiveStart: January 16, 2024 End: January 22lorenzo Silverman MDOther ProviderActiveStart: January 16, 2024 End: January 23, 2024Monisha Moore RNOther ProviderActiveStart: January 16, 2024 End: January 23, 2024Myesha Feliz MDOther ProviderActiveStart: January 16, 2024 End: January 23, 2024Rogelio Rai MDOther ProviderActiveStart: January 16, 2024 End: January 23, 2024Heaven Truong , APRNOther ProviderActiveStart: January 16, 2024 End: January 22enedinarciso Yeboah Jr DOOther ProviderActiveStart: January 16, 2024 [...] DateEnd Date Stanley Emerson MD [address] [place] [address] (Fax) PCP - [facility]10/17/22 Stanley Emerson MD [address] [place] [address] PCP - GeneralFamily Medicine11/20/22 Dora Santiago LPN Licensed Practical Nursemily Medicine12/22/23Team MemberRelationshipSpecialty Start DateEnd Date Stanley Emerson MD [address] [place] [address] (Fax) PCP - [facility]10/17/22 Stanley Emerson MD [address] [place] [address] (Fax) PCP - GeneralFamily Medicine11/20/22 Dora Santiago LPN Licensed Practical NurseFamily Medicine12/22/23Team MemberRelationshipSpecialty Start DateEnd Date Stanley Emerson MD [address] [place] [address] (Fax) PCP - [facility]10/17/22 Stanley Emerson MD [address] [place] [address] (Fax) PCP - GeneralFamily Medicine11/20/22 Dora Santiago LPN Licensed Practical NurseFamily Medicine12/22/23Team MemberRelationshipSpecialty Start DateEnd Date Stanley Emerson MD [address] [place] [address] (Fax) PCP - [facility]10/17/22 Stanley Emerson MD [address] [place] [address] (Fax) PCP - GeneralFamily Medicine11/20/22 Dora Santiago LPN Licensed Practical NurseFamily Medicine12/22/23Team MemberRelationshipSpecialty Start DateEnd Date Stanley Emerson MD [address] [place] [address] (Fax) PCP - [facility]10/17/22 Stanley Emerson MD [address] [place] [address] (Fax) PCP - GeneralFamily Medicine11/20/22 Dora Santiago LPN Licensed Practical NurseFamily Medicine12/22/23Team MemberRelationshipSpecialty Start DateEnd Date Stanley Emerson MD [facility] [address] [place] [phone] PCP - Cmibzxr80/23/22Team MemberRelationshipSpecialtyStart DateEnd Date Stanley Emerson MD [address] [place] [address] (Fax) PCP - [facility]10/17/22 Stanley Emerson MD [address] [place] [address] (Fax) PCP - GeneralFamily Medicine11/20/22 Dora Santiago LPN Licensed Practical NurseFamily Medicine12/22/23Team MemberRelationshipSpecialty Start DateEnd Stanley Emerson MD [address] [place] [address] (Fax) PCP - [facility]10/17/22 Stanley Emerson MD [address] [place] [address] (Fax) PCP - GeneralFamily Medicine11/20/22 Dora Santiago LPN Licensed Practical NurseFamily Medicine12/22/23Team MemberRelationshipSpecialty Start DateEnd Date Stanley Emerson MD [facility] [address] [place] [phone] PCP - Oxlgrwh89/23/22Team MemberRelationshipSpecialtyStart DateEnd Date Stanley Emerson MD [address] [place] [address] (Fax) PCP - [facility]10/17/22 Stanley Emerson MD [address] [place] [address] (Fax) PCP - GeneralFamily Medicine11/20/22 Dora Santiago LPN Licensed Practical NurseFamily Medicine12/22/23Team MemberRelationshipSpecialty Start DateEnd Stanley Emerson MD [address] [place] [address] (Fax) PCP - [facility]10/17/22 Stanley Emerson MD [address] [place] [address] (Fax) PCP - GeneralFamily Medicine11/20/22 Dora Santiago LPN Licensed Practical NurseFamily Medicine12/22/23Team MemberRelationshipSpecialty Start DateEnd Date Stanley Emerson MD [address] [place] [address] (Fax) PCP - [facility]10/17/22 Stanley Emerson MD [address] [place] [address] (Fax) PCP - GeneralFamily Medicine11/20/22 Dora Santiago LPN Licensed Practical NurseFailly Medicine12/22/23Team MemberRelationshipSpecialty Start DateEnd Date Stanley Emerson MD [address] [place] [address] (Fax) PCP - [facility]10/17/22 Stanley Emerson MD [address] [place] [address] (Fax) [facility]/20/22 Dora Santiago LPN Licensed Practical NursePiedmont [facility]12/22/23Team MemberRelationshipSpecialty Start DateEnd Date Stanley Emerson MD [address] [place] [address] [facility]05/17/22Team MemberRelationshipSpecialtyStart DateEnd Date Stanley Emerson MD [address] [place] [address] [facility] Team Status: Inactive Member Role Status Dates Stanley Emerson MD Primary Care Provider Active Start: May 21, 2024 End: May 21, 2024Teo Al MDAttclara ProviderActiveStart: May 21, 2024 End: May 21, 2024Team MemberRelationshipSpecialtyStart DateEnd Date Stanley Emerson MD [address] [place] [address] (Fax) PCP - [facility]10/17/22 Stanley Emerson MD [address] [place] [address] (Fax) PCP - GeneralFamily Medicine11/20/22 Joi Zhang LPN 08/26/24Team MemberRelationshipSpecialtyStart DateEnd Date Stanley Emerson MD [address] [place] [address] (Fax) PCP - [facility]10/17/22 Stanley Emerson MD [address] [place] [address] (Fax) PCP - GeneralFamily Medicine11/20/22 Dora Santiago LPN Licensed Practical Nursemily Medicine Joi Zhang LPN 08/26/24Team MemberRelationshipSpecialtyStart DateEnd Date Stanley Emerson MD [address] [phone] PCP - Nlxqipy69/23/22Team MemberRelationshipSpecialtyStart DateEnd Date Stanley Emerson MD [address] [place] [address] (Fax) PCP - [facility]/17/22 Stanley Emerson MD [address] [place] [address] (Fax) PCP - GeneralFamily Medicine11/20/22 Joi Zhang LPN 08/26/24Team MemberRelationshipSpecialtyStart DateEnd Date Stanley Emerson MD [address] [facility] [place] [address] (Fax) PCP - [facility]10/17/22 Stanley Emerson MD [address] [place] [address] (Fax) PCP - GeneralFamily Medicine11/20/22 Joi Zhang, VBA PROGRAMMER 08/26/24Team MemberRelationshipSpecialtyStart DateEnd Date Stanley Emerson MD [address] [facility] [address] [place], [place] [address] (Fax) PCP - ACO Reach10/17/22 Stanley Emerson MD [address] [address] (Fax) PCP - GeneralFamily Medicine11/20/22 Joi Zhang, VBA PROGRAMMER 08/26/24Team MemberRelationshipSpecialtyStart DateEnd Date Stanley Emerson MD [address] [place] [address] (Fax) PCP - General10/02/24Team MemberRelationshipSpecialtyStart DateEnd Date Stanley Emerson MD [address] [place] [address] (Fax) PCP - General10/02/24Team MemberRelationshipSpecialtyStart DateEnd Date Stanley Emerson MD [facility] [address] [place] [phone] PCP - Zeynwgn70/23/22 Ruby Montana MD [address] [facility], [facility] [address] [place] [address] CardiologistElectrophysiology10/04/24Team MemberRelationshipSpecialtyStart Date End Date Stanley Emerson MD [address] [place] [address] (Fax) PCP - ACO Reach10/17/22 Stanley Emerson MD [address] [place] [address] (Fax) PCP - GeneralFamily Medicine11/20/22 Joi Zhang, VBA PROGRAMMER 08/26/24Team MemberRelationshipSpecialtyStart DateEnd Date Stanely Emerson MD [address] [place] [address] (Fax) PCP - ACO Reach10/17/22 Stanley Emerson MD [address] [place] [address] (Fax) PCP - GeneralFamily Medicine11/20/22 Joi Zhang, VBA PROGRAMMER 08/26/24Team MemberRelationshipSpecialtyStart DateEnd Date Stanley Emerson MD [address] [place] [address] (Fax) PCP - ACO [facility]10/17/22 Stanley Emerson MD [address] [place] [address] (Fax) PCP - GeneralFamily Medicine11/20/22 Joi Zhang, VBA PROGRAMMER [address] [place] [address] 08/26/24Team MemberRelationshipSpecialtyStart DateEnd Date Stanley Emerson MD [address] [place] [address] (Fax) PCP - ACO Reach10/17/22 Stanley Emerson MD [address] [place] [address] (Fax) PCP - GeneralFamily Medicine11/20/22 Joi Zhang LPN [address] [place] [address] 08/26/24Team MemberRelationshipSpecialtyStart DateEnd Date Stanley Emerson MD [address] [place] [address] (Fax) PCP - ACO [facility]10/17/22 Stanley Emerson MD [address] [place] [address] (Fax) PCP - GeneralFamily Medicine11/20/22 Joi Zhang LPN [address] [place] [address] 08/26/24Team MemberRelationshipSpecialtyStart DateEnd Date Stanley Emerson MD [address] [place] [address] (Fax) PCP - ACO [facility]10/17/22 Stanley Emerson MD [address] [place] [address] (Fax) PCP - GeneralFamily Medicine11/20/22 Dora Santiago LPN [address] [place] [address] Licensed Practical NurseFamily Medicine Joi Zhang LPN [address] [place] [address] 08/26/24Team MemberRelationshipSpecialtyStart DateEnd Date Stanley Emerson MD [address] [place] [address] (Fax) PCP - ACO [facility]10/17/22 Stanley Emerson MD [address] [place] [address] (Fax) PCP - GeneralFamily Medicine11/20/22 Dora Santiago LPN [address] [place] [address] Licensed Practical NurseFamily Medicine/08/17 Joi Zhang LPN [address] [place] [address] 08/26/24Te MemberRelationshipSpecialtyStart DateEnd Date Stanley Emerson MD [address] [place] [address] (Fax) PCP - ACO [facility]10/17/22 Stanley Emerson MD [address] [place] [address] (Fax) PCP - GeneralFamily Medicine11/20/22 Dora Santiago LPN [address] [place] [address] Licensed Practical NurseFamily Medicine Christina Goddard LPN Licensed Practical NurseFamily Medicine/06/18 Joi Zhang LPN [address] [place] [address] 08/26/24Team MemberRelationshipSpecialtyStart DateEnd Date Stanley Emerson MD [address] [place] [address] (Fax) PCP - ACO [facility]10/17/22 Stanley Emerson MD [address] [place] [address] (Fax) PCP - GeneralFamily Medicine11/20/22 Joi Zhang LPN [address] [place] [address] 08/26/24 REASON FOR VISIT (unrecogniz ed section and content) ReasonCommentsekg visitSpecialtyDiagnoses / ProceduresReferred By Contact Referred To Contact Diagnoses Paroxysmal atrial fibrillation (Multi) Procedures ECG 12 Lead Teo Al MD [address] [place] [address] [address], [address] [address] Referral IDStatusReasonStart DateExpiration DateVisits RequestedVisits [id number]/17/20249/[id number]djwfpi [facility] [place] [place] pecialtyDiagnoses / ProceduresReferred By Contact Referred To Contact Diagnoses Paroxysmal atrial fibrillation (Multi) Procedures ECG 12 Lead Teo Al MD [address] [place] [address] [address], [address] [address] Referral IDStatusReasonStelk city DateExpiration DateVisits RequestedVisits [id number]/17/20249/[id number] RefillReason CommentsFollow-to8oSipdcchmxDmbqgltnb / ProceduresReferred By ContactReferred To ContactCardiology Diagnoses Paroxysmal atrial fibrillation (Multi) Procedures Follow Up In Cardiology Teo Al MD [address] [facility] 2, [address] [address] Phone: tel: fax: Teo Al MD [address] [facility] 2, [address] [place] [address] Phone: tel: fax: Referral IDStatus[facility] DateExpiration DateVisits RequestedVisits [id number]/17/20249/[id number] Exam SpecialtyDiagnoses / ProceduresReferred By ContactReferred To ContactCardiology Diagnoses Cardiomyopathy, ischemic Procedures Follow Up In Cardiology Teo lA MD [address], [address] [place], [place] [address] Phone: tel: fax: Teo Al MD [address], [address] [place] [address] Phone: tel: fax: Referral IDStatSam[facility] DateExpiration DateVisits RequestedVisits [id number]/27/202412/[id number] month follow up abnormal testingSpecialtyDiagnoses / ProceduresReferred By Contact Referred To Contact Diagnoses Paroxysmal atrial fibrillation (Multi) Procedures ECG 12 Lead Teo Al MD [address], [address] [address] Phone: tel: fax: Ref[facility]Status[facility] DateExpiration DateVisits RequestedVisits [id number]/18/20254/[id number]jglg ReasonCommentsNew Patient VisitPatient is present to establish care . Patient was referred by cardiology for Paroxysmal atrial fibrillation.SpecialtyDiagnoses / ProceduresReferred By ContactReferred To ContactCardiology Diagnoses Cardiomyopathy, ischemic Teo Al MD [address], [address] [place] [address] Phone: tel: fax: Ruby Montana MD [address] [facility] [address], [address] [place] [address] Phone: tel: fax: Referral IDStatusReasonStart DateExpiration DateVisits RequestedVisits [id number] Specialty Services Required Goals (unrecognized section and [...] ROCIO) * 0839 (Given - Provider: Jessy Wayne RN) * 0835 (Given - Provider: Coco Mirza RN) atorvastatin (LIPITOR) tablet 80 mg 80 mg, Oral, NIGHTLY, First dose on 10/02/24 at 2100, Until Discontinued * 2038 (Given - Provider: Gi Berrios RN) * 1939 (Given - Provider: Milton Kaiser RN) * 2100 (Due) azithromycin (ZITHROMAX) 500 mg in sodium chloride 0.9 % 250 mL IVPB ([id number]) (COMPLETED) 500 mg, IntraVENous, EVERY 24 HOURS, 2 doses, First dose on 10/02/24 at 1200, Last dose on Fri10/03/24 at 1200, Antimicrobial Indications: Pneumonia (CAP), CAP duration of therapy: 3 days, Use 20mm (Blue) Pfgm9Ucs Adapter Preparation instructions: Attach medication vial to one 20mm (Blue) Sgnu1Cmc adapter. James fluid bag with adapter, mix, [...] (Given - Provider: Mar Gonzalez RN) * 204 (Given - Provider: Gi Berrios RN) * 0841 (Given - Provider: Jessy Wayne RN) * 194 (Given - Provider: Milton Kaiser RN) * 0843 (Given - Provider: Coco Mirza RN) * 2100 (Due) metoprolol succinate (TOPROL XL) extended release tablet 25 mg 25 mg, Oral, DAILY, First dose on 5/11/25 at 0900, Until Discontinued, Do not crush [...] over 24 Hours, DAILY, First dose on Fri10/04/24 at 1615 * 1639 (Patch Applied - [...] (Given - Provider: Coco Mirza RN) * 2099 (Due) warfarin (COUMADIN) tablet 2 mg 2 [...] Review INR prior to warfarin administration. Medication Order10/03/// 0.9 % sodium chloride infusion IntraVENous, at [...] BE BASED ON THE PRIMARY CLINICAL RECORDS. [facility] [employer] [facility]. provides no warranty or guarantee of the accuracy or completeness of information in this document.
--- NOTE | 2025-03-24 13:36 | PM.WCHP ---
Wound Care H&P: HPI History of Present Illness Narrative: The patient is an 79-year-old gentleman who presents for routine toenail care. He has history of CHF and is on long-term Coumadin. His toenails are very thick, painful, and dystrophic and he is unable to clip them at home. [facility] Medical History (Updated 12/23/24 @ 13:46 by HUMA Mcdonald) Bladder cancer ?C67.9 - Malignant neoplasm of bladder, unspecified (ICD-10) Social History Smoking status: Current every day smoker Little interest or pleasure in doing things: not at all Feeling down, depressed, or hopeless: not at all Meds Home Medications and Allergies Home Medications ?Medication ?Instructions ?Recorded ?Confirmed ?Type albuterol sulfate 90 mcg/actuation 1 inh inhalation Q6H PRN 04/13/23 10/01/24 History aerosol inhaler bronchospasm amiodarone 200 mg tablet 200 mg PO Q12H 04/28/24 10/01/24 History atorvastatin 80 mg tablet 80 mg PO QPM 04/28/24 10/01/24 History clopidogrel 75 mg tablet 75 mg PO DAILY 04/28/24 10/01/24 History furosemide 40 mg tablet (Lasix) 40 mg PO DAILY 04/28/24 10/01/24 History nitroglycerin 0.4 mg sublingual 0.4 mg sublingual Q5M PRN chest 04/28/24 10/01/24 History tablet pain warfarin 2 mg tablet 2 mg PO DAILY 04/28/24 10/01/24 History methimazole 5 mg tablet 5 mg PO BID 06/17/24 10/01/24 History aripiprazole 2 mg tablet 1 mg PO .QHS 10/01/24 10/01/24 History cephalexin 250 mg capsule 250 mg PO .MWF 10/01/24 10/01/24 History ferrous sulfate 325 mg (65 mg 325 mg PO BID 10/01/24 10/01/24 History iron) tablet metoprolol succinate 25 mg 25 mg PO .QD 10/01/24 10/01/24 History tablet,extended release 24 hr potassium chloride 20 mEq 20 meq PO .QD 10/01/24 10/01/24 History tablet,extended release(part/cryst) Allergies Allergy/AdvReac Type Severity Reaction Status Date / Time No Known Drug Allergies Allergy Verified 10/01/24 15:03 Exam Narrative: Exam Narrative: Derm: Toenails 1 through 10 are thickened, elongated, and painful.? The great toenails are extremely thick and dystrophic. No evidence of paronychia.? Skin is diffusely dry, thin, and atrophic.? Hemosiderin staining present on the lower legs bilaterally. Vascular: PT pulses are nonpalpable bilaterally.? DP pulse is 1/4 bilaterally.? Capillary refill is less than 3 seconds to all toes. Digital hair is absent bilaterally. Distal feet are cool to the touch. Neuro: Vibratory sensation is absent bilaterally.? Achilles deep tendon reflex is 0+ bilaterally.? Protective sensation was tested with a monofilament and is present in 3/5 areas tested on the right and 3/5 areas tested on the left.? Musculoskeletal: No gross deformity.? Strength 5/5 in all planes bilaterally Assessment and Plan Assessment and Plan (1) Tinea unguium: (2) Onychogryphosis: (3) Diminished pulses in lower extremity: (4) Disorder of nail due to another disorder: (5) Unsteady gait when walking: (6) Bilateral lower extremity edema: Plan Routine toenail care performed. Follow-up in 3 months. Acute Procedures Podiatry Nail Debridement Class B Findings Absent posterior tibial pulse: bilateral Advanced trophic changes as evidenced by any three of the following: decreased hair growth, nail changes (thickening), pigmentary changes (discoloring) and skin texture (thin or shiny) Class C Findings Claudication: No Temperature changes: Yes Edema: Yes Nail debridement paresthesia (abnormal spontaneous sensations in the feet): No Burning: No Qualifies If: Qualifiers If:: A patient qualifies for nail debridement if they have: 1 class A finding (Q7) 2 class B findings (Q8) OR 1 class B & 2 class C findings in addition to a primary condition (Q9) Nail Procedure Nail Procedure Time out: Yes Nail procedure: other (Toenail debridement) Number of affected nails: 10 Location (toes): left and right Procedure successful: Yes Patient tolerated procedure: well and no complications Additional comments: Toenails 1 through 10 were sharply debrided with nail nippers and dremel file without incident.
== END 2025-03-24 13:08 | disposition home or self-care (01) ==
LOC: WC 13:07
PROVIDERS: PCP Family Medicine; Visit Provider Physician Assistant
DX: B35.1 Tinea unguium (principal); L60.2 Onychogryphosis; R09.89 Other specified symptoms and signs involving the circulatory and respiratory systems; L60.8 Other nail disorders; R26.81 Unsteadiness on feet; R60.0 Localized edema
CPT/HCPCS: 11721

== ENCOUNTER 2025-03-26 | Outpatient (RCR) | payer MEDICARE, OTHER, SELFPAY | END 2025-04-24 23:59 | disposition home or self-care (01) | LOC: MM | PROVIDERS: PCP Family Medicine; Visit Provider Internal Medicine | DX: Z51.81 Encounter for therapeutic drug level monitoring (principal); Z79.01 Long term (current) use of anticoagulants; I48.91 Unspecified atrial fibrillation | CPT/HCPCS: 85610; G0463 ==

== ENCOUNTER 2025-04-16 02:12 | Emergency (ER) | payer MEDICARE, OTHER, SELFPAY ==
--- OUTSIDE RECORDS SUMMARY | 2019-12-10 06:15 | XMS_ITS | Continuity of Care Document ---
Author Organization [facility] Address [address] [place] [phone] Phone Care Team Providers Care Hogshead Filler Name Role Phone Alberto Farrell Unavailable Unavailable Procedures Procedure Date Covid Testing [facility] Results Test Name Date and Time Measure Units Reference Range Abnormal Flag Status Comments Panel Description: SARS-CoV-2, KARI Final SARS-CoV- 2, KARI 020 18:04:00 Not Detected Not Detected Final This test was developed and its performance characteristics determinedby [facility]. This test has not been FDA cleared [...] anegative (not detected) result in this assay.Performed by:[facility] ([facility]) Panel Description: SARS-CoV-2 Antibody, IgM [facility] SARS-CoV- 2 Antibody, IgM 020 16:11:00 Negative Negative Final This sample do es not contain detectable SARS-CoV-2 IgM antibodies.This negative result does not rule out SARS-CoV-2 infection.Correlation with epidemiologic risk factors and other clinical andlaboratory findings is recommended. Serologic results should not beused as the sole basis to diagnose or exclude recent [id number].P erformed by:[facility] ([facility]) Panel Description: SARS-CoV-2 Antibody, IgG Fin al SARS-CoV- 2 Antibody, IgG 020 07:12:00 Negative Negative Final This sample do es not contain detectable SARS-CoV-2 IgG antibodies.This negative result does not rule out SARS-CoV-2 infection.Correlation with epidemiologic risk factors and other clinical andlaboratory findings is recommended. Serologic results should not beused as the sole basis to diagnose or exclude recent [id number].T his assay was performed using the [employer] SARS-CoV-2 IgG assay.Performed by:[facility] ([employer] [facility]) Advance Directives Directive Yes / No Effective Date File Name No Information Encounters Encounter Description Practice Location Reason(s) For Visit Diagnoses Date Provider Providers Copied on Encounter [facility], [address] [place] [address], [id number], [place] tel:[phone] COVID ECHD Encounter for screening for other viral diseases Visci DO Alberto. [address] [place] [address], [id number], [place]. tel:[phone] Family History Family Member Type Diagnosis Age At Onset No Information Payers Payer name Insurance type Covered green party ID Authoriza tion(s) Medicare [facility] [id number] Social History Type Description Quantity Date Captured [...]
[2025-04-16 02:16] VITALS: BP 138/86; PULSE 83; TEMP 37.2; O2SAT 98; BMI 24.4
--- NOTE | 2025-04-16 02:34 | ED.MALEGU1 ---
HPI - Male Genitourinary General Chief complaint: Urogenital-Male Stated complaint: catheter not draining Time Seen by Provider: 04/16/25 02:22 Source: patient Mode of arrival: walk-in History of Present Illness HPI Narrative: patient presents complaining that his catheter is not working. Started not draining last PM. No abdominal pain or nausea. No fever or nausea Related Data Home Medications ?Medication ?Instructions ?Recorded ?Confirmed albuterol sulfate 90 mcg/actuation 1 inh inhalation Q6H PRN 04/13/23 10/01/24 aerosol inhaler bronchospasm amiodarone 200 mg tablet 200 mg PO Q12H 04/28/24 10/01/24 atorvastatin 80 mg tablet 80 mg PO QPM 04/28/24 10/01/24 clopidogrel 75 mg tablet 75 mg PO DAILY 04/28/24 10/01/24 furosemide 40 mg tablet (Lasix) 40 mg PO DAILY 04/28/24 10/01/24 nitroglycerin 0.4 mg sublingual 0.4 mg sublingual Q5M PRN chest 04/28/24 10/01/24 tablet pain warfarin 2 mg tablet 2 mg PO DAILY 04/28/24 10/01/24 methimazole 5 mg tablet 5 mg PO BID 06/17/24 10/01/24 aripiprazole 2 mg tablet 1 mg PO .QHS 10/01/24 10/01/24 cephalexin 250 mg capsule 250 mg PO .MWF 10/01/24 10/01/24 ferrous sulfate 325 mg (65 mg 325 mg PO BID 10/01/24 10/01/24 iron) tablet metoprolol succinate 25 mg 25 mg PO .QD 10/01/24 10/01/24 tablet,extended release 24 hr potassium chloride 20 mEq 20 meq PO .QD 10/01/24 10/01/24 tablet,extended release(part/cryst) Allergies Allergy/AdvReac Type Severity Reaction Status Date / Time No Known Drug Allergies Allergy Verified 10/01/24 15:03 Review of Systems ROS Status of ROS 10 or more systems reviewed and unremarkable except as noted in history and below [facility] Medical History (Updated 04/16/25 @ 02:38 by Shahriar Mosley MD) Bladder cancer ?C67.9 - Malignant neoplasm of bladder, unspecified (ICD-10) Social History (Reviewed 11/28/23 @ 16:27 by BEAU Belcher Smoking status: Current every day smoker Little interest or pleasure in doing things: not at all Feeling down, depressed, or hopeless: not at all Exam Constitutional Vital Signs, click to edit/add: Last Vital Signs Temp 98.9 F 04/16/25 02:16 Pulse 83 04/16/25 02:16 Resp 18 04/16/25 02:16 BP 138/86 04/16/25 02:16 Pulse Ox 98 04/16/25 02:16 O2 Del Method Room Air 04/16/25 02:16 Common normals: no apparent distress, average body habitus, oriented x3, no limitations, healthy appearing, alert and well nourished HENMT Common normals: normocephalic and head/scalp atraumatic Eye Common normals: EOMs intact bilaterally and conjunctivae normal Respiratory Common normals: normal respiratory effort, no retractions, no use of accessory muscles and clear to auscultation bilaterally Cardio Common normals: regular rate, regular rhythm, S1 normal heart sound and S2 normal heart sound GI Common normals: Normal to inspection, nondistended, normoactive bowel sounds present, soft to palpation and non-tender Extremity Common normals: normal to inspection and full ROM Neuro Common normals: oriented x3, CN's II-XII intact bilaterally, moves all extremities and no focal motor deficits Psych Appearance: grossly normal Course Vital Signs Vital signs: Vital Signs Temperature 98.9 F 04/16/25 02:16 Pulse Rate 83 04/16/25 02:16 Respiratory Rate 18 04/16/25 02:16 Blood Pressure 138/86 04/16/25 02:16 Pulse Oximetry 98 04/16/25 02:16 Oxygen Delivery Method Room Air 04/16/25 02:16 Temperature 98.9 F 04/16/25 02:16 Pulse Rate 83 04/16/25 02:16 Respiratory Rate 18 04/16/25 02:16 Blood Pressure 138/86 04/16/25 02:16 Pulse Oximetry 98 04/16/25 02:16 Oxygen Delivery Method Room Air 04/16/25 02:16 MDM - Male Genitourinary MDM Narrative Medical decision making narrative: patient presents with indwelling zapien catheter that is not draining. Bladder scan with over 450cc of urine. Patient in no distress. No systemic symptoms. zapien replaced by nursing without difficulty and patient discharged home Discharge Plan Discharge Chief Complaint: Urogenital-Male Clinical Impression: Zapien catheter problem Patient Disposition: Home, Self-Care Prescriptions / Home Meds: No Action clopidogrel 75 mg tablet 75 mg PO DAILY warfarin 2 mg tablet 2 mg PO DAILY albuterol sulfate 90 mcg/actuation HFA aerosol inhaler 1 inh INHALATION Q6H PRN (Reason: bronchospasm) amiodarone 200 mg tablet 200 mg PO Q12H atorvastatin 80 mg tablet 80 mg PO QPM furosemide [Lasix] 40 mg tablet 40 mg PO DAILY nitroglycerin 0.4 mg tablet, sublingual 0.4 mg sublingual Q5M PRN (Reason: chest pain) methimazole 5 mg tablet 5 mg PO BID aripiprazole 2 mg tablet 1 mg PO .QHS cephalexin 250 mg capsule 250 mg PO .MWF ferrous sulfate 325 mg (65 mg iron) tablet 325 mg PO BID metoprolol succinate 25 mg tablet extended release 24 hr 25 mg PO .QD potassium chloride 20 mEq tablet,ER particles/crystals 20 meq PO .QD Print Language: Bahraini Instructions: Zapien Catheter Placement and Care (ED) Referrals: NICHOLAS EMERSON [Primary Care Provider, Family Practice] - 1 week
--- OUTSIDE RECORDS SUMMARY | 2025-04-16 02:45 | XMS_ITS | Clinical Summary ---
Author Organization [facility] Address [address] [place], [place] [id number] Care Team Providers Care Cnc Machine Programmer Name Role Phone Stanley Toledo MD Primary Care Provider Social History Tobacco UseTypesPacks/DayYears UsedDateSmoking Tobacco: Never AssessedSex and Gender InformationValueDate RecordedSex Assigned at BirthNot on fileLegal Sex Male01/21/2024 8:32 AM EDTGender IdentityNot on fileSexual OrientationNot on file Plan of Treatment Health MaintenanceDue DateLast DoneCommentsAnxiety Wgfnspnut97/08/1962Depression Tzjomxsmj16/08/1962DTaP,Tdap,Td Vaccine (1 - Tdap)11/30/1962Diabetes Screening 11/30/1988Pneumococcal Vaccine: 50+ (1 of 1 - PCV)11/30/1993Shingrix Vaccine (1 of 2)11/30/1993RSV Vaccine (1 - 1-dose 75+ series)11/30/2018Advance Directive Mmfimhlxzn93/01/2025ovid-19 Vaccine (1 - 2024-26 season)2025Influenza Vaccine (#1)2025 Insurance Care Teams Team MemberRelationshipSpecialtyStart DateEnd Date Stanley Toledo MD [address] [place] [phone] [facility] - [facility]/21/24
--- OUTSIDE RECORDS SUMMARY | 2025-04-16 02:45 | XMS_ITS | Clinical Summary ---
Author Organization [facility] Address [address], [address] [place] [address] Care Team Providers Care Machine Programmer Name Role Phone Stanley Toledo MD Primary Care Provider [phone] Allergies No known active allergies Medications MedicationSigDispense QuantityRefillsLast FilledStart DateEnd DateStatus amiodarone (CORDARONE) 200 MG tablet Take 1 tablet by mouth daily02/10/2024ctive atorvastatin (LIPITOR) 80 MG tablet Take 1 tablet by mouth daily01/16/2024ctive clopidogrel (PLAVIX) 75 MG tablet Take 1 tablet by mouth daily03/05/2024ctive ferrous sulfate (IRON 325) 325 (65 Fe) MG tablet Take 1 tablet by mouth daily (with breakfast)Active furosemide (LASIX) 40 MG tablet Take 1 tablet by mouth daily02/04/2024ctive methIMAzole (TAPAZOLE) 5 MG tablet Take 1 tablet by mouth 2 times dailyctive metoprolol succinate (TOPROL XL) 25 MG extended release tablet Take 1 tablet by mouth daily5Active nitroGLYCERIN (NITROSTAT) 0.[address] 1 tablet under the tongue every 5 minutes as kgthmv4001/16/2024ctive warfarin (COUMADIN) 2 MG tablet Take 0.5 tablets by mouth daily4Active rivastigmine (EXELON) 4.6 MG/24HR Place 1 patch onto the skin daily 30 patch 5Active QUEtiapine (SEROQUEL) 25 MG tablet Take 1 tablet by mouth nightly 60 tablet 5Active albuterol sulfate HFA (PROVENTIL;VENTOLIN;PROAIR) 108 (90 Base) MCG/ACT inhaler Inhale 2 puffs into the lungs every 6 hours as needed for Wheezing or Shortness of Breath 18 g 10/05/2024tive Active Problems ProblemNoted DateDiagnosed DateAcute cystitis without fmkbwuzyi89/12/2025DNR (do not resuscitate) xzdlmasbam17/12/2025Palliative care yhndnjsdf26/12/2025Goals of care, counseling/iqtqawmusz60/12/2025hronic heart qmdrhyd6410/04/2024ute metabolic eunltglllfhskc94/12/2025Delirium due to another medical condition 10/03/2024ommunity acquired pneumonia of lower lobe of lung10/02/2024Lower extremity edema10/02/2024 Social History Tobacco UseTypesPacks/DayYears UsedDateSmoking Tobacco: FormerCigarettes Tobacco Cessation:Counseling Given: Not Answered [facility] UtilitiesAnswerDate RecordedIn the past 12 months has the [employer], gas, oil, or water [employer] threatened to shut off services in your home?Patient unable to atdwsj6110/02/2024Hunger Vital SignAnswerDate RecordedWithin the past 12 months, you worried that your food would run out before you got the money to buy more.Patient unable to feufzw7110/02/2024Within the past 12 months, the food you bought just didn't last and you didn't have money to get more.Patient unable to aqworm7210/02/2024PRAPARE - TransportationAnswerDate RecordedIn the past 12 months, has lack of transportation kept you from medical appointments or from getting medications?Patient unable to xmdxbt5710/02/2024In the past 12 months, has lack of transportation kept you from meetings, work, or from getting things needed for daily living?Patient unable to viyuzd0110/02/2024Housing Stability Vital SignAnswerDate RecordedIn the last 12 months, was there a time when you were not able to pay the mortgage or rent on time?Patient unable to answer 10/02/2024In the past 12 months, how many times have you moved where you were living?Not on file10/02/2024t any time in the past 12 months, were you homeless or living in a [place] (including now)?Patient unable to tjrjhl6710/02/2024Food InsecurityAnswerDate RecordedWithin the past 12 months, you worried that your food would run out before you got the money to buymore.Within the past 12 months, the food you bought just didn't last and you didn't have money to get more.Interpersonal Safety Domain Source: IP Abuse Screening AnswerDate RecordedPhysical nsgfzTrnapz15/10/2025Verbal svhboXgvrfh53/10/2025 Emotional fmckeJnwuve84/10/2025Financial coqowUsoahu20/10/2025Sexual abuseDenies 10/02/2024Sex and Gender InformationValueDate RecordedSex Assigned at BirthNot on fileLegal RduMnji9510/01/2024 10:28 PM EDTGender IdentityNot on fileSexual OrientationNot on file Last Filed Vital Signs Vital SignReadingTime TakenCommentsBlood Hgclachs060/67010/05/2024 8:35 AM EDT Hdtqy160410/05/2024 8:35 AM FLKEpggohfhqxk14.7 ??C (98.1 ??F)10/05/2024 7:05 AM EDTRespiratory Soqv751210/05/2024 7:05 AM EDTOxygen Mwyirgjnjc14%10/05/2024 7:05 AM EDTInhaled Oxygen Concentration--Fcpzdz39.4 kg (175 lb)10/02/2024 4:30 PM EDT Iopavp305 cm (6' 2 )10/02/2024 4:30 PM EDTBody Mass Index22.47010/02/2024 4:30 PM EDT Plan of Treatment Health MaintenanceDue DateLast UmqoUvukjycnNiuhvx97/08/1956Depression Screen 1955DTaP/Tdap/Td vaccine (1 - Tdap)11/30/1962Shingles vaccine (1 of 2) 11/30/1993Annual Wellness Visit (Medicare)10/02/2024Flu vaccine (#1)12/24/2024 03/19/2024, 03/26/2023, 05/20/2022, Additional history existsCOVID-19 Vaccine ( season)51, 02/16/2023, 03/29/2022, Additional history existsPneumococcal 50+ years QphmivmDikgrtaus34/03/2024, 04/23/2021 Respiratory Syncytial Virus (RSV) or age 60 yrs+Etufeiqaf74/31/2025 Hepatitis A vaccineAged OutNo longer eligible based on patient's age to complete this topicHepatitis B vaccineAged OutNo longer eligible based on patient's age to complete this topicHib vaccineAged OutNo longer eligible based on patient's age to complete this topicMeningococcal (ACWY) vaccineAged OutNo longer eligible based on patient's age to complete this topicMeningococcal B vaccineAged OutNo longer eligible based on patient's age to complete this topicPolio vaccineAged OutNo longer eligible based on patient's age to complete this topic Insurance Advance Directives TypeDate RecordedPatient RepresentativeExplanationACP-Advance Directive10/06/2024 4:23 PMACP-Do Not Resuscitate10/06/2024 4:22 PM * DNR-CCA (Latest Code Status on File) Date ActivatedDate InactivatedComments10/04/2024 3:24 PM10/05/2024 4:27 PM * Full Code Date ActivatedDate InactivatedComments10/02/2024 10:49 AM10/04/2024 3:24 PM NameRelationshipHealthcare Agent RelationshipCommunicationEstella AndersonSpouse Primary Decision Maker* Antonio AndersonChildSecondary Decision Maker* Lindy MonicaChildSecondary Decision Maker* Care Teams Team MemberRelationshipSpecialtyStart DateEnd Date Stanley Toledo MD [facility]10/02/24
--- OUTSIDE RECORDS SUMMARY | 2025-04-16 02:45 | XMS_ITS | Encounter Summary ---
Author Organization [facility] Address [address] [place] [address] Care Team Providers Care Certified First Assistant Name Role Phone Stanley Toledo MD Unavailable [phone] Joi Zhang LPN Unavailable Encounter Details DateTypeDepartmentCare Team (Latest Contact Info)Wvgzriptkab71/11/2025Patient Outreach [facility] [address] [place] [address] Joi Zhang LPN [address] [place] [address] Social History Tobacco UseTypesPacks/DayYears UsedDateSmoking Tobacco: FormerCigarettes0.561.3 Started: 12/31/1965Smokeless Tobacco: NeverAlcohol UseStandard Drinks/Week CommentsNever0 (1 standard drink = 0.6 oz pure alcohol)B1300 Health Literacy AnswerDate RecordedHow often do you need to have someone help you when you read instructions, pamphlets, or other written material from your doctor or pharmacy? Asvfgv9712/30/2024Humiliation, Afraid, Rape, and Kick questionnaireAnswerDate RecordedWithin the [...] times a week12/31/2023How often do you attend adventist or buddhism services?Never12/31/2023o you belong to any clubs or organizations such as adventist groups, unions, [email or web address] or athletic groups, or school groups?No12/31/2023How often do you attend meetings of the clubs or organizations you belong to?Never12/31/2023re you , , , , never , or living with a partner?Dzfpyuf3212/31/2023 AUDIT-CAnswerDate RecordedQ1: How often do you have [...] at all 12/31/2023HQ-2AnswerDate RecordedPatient Health Questionnaire-2 Score0 05/13/2024[facility] - Occupational Stress QuestionnaireAnswerDate RecordedDo you feel stress - tense, restless, nervous, or anxious, or unable to sleep at night because yourmind is troubled all the time - these days?Only a mrnwjs2412/30/2024Exercise Vital SignAnswerDate Recorded On average, how many [...] Progress Notes * Joi Zhang LPN - 04/05/2025 4:16 PM EST Call to pt. Spoke with pts spouse. She shares pt has not changed PCP and does not plan to. She shares she has been deciding between insurance plans but has not changed that yet either. documented in this encounter Plan of Treatment DateTypeDepartmentCare Team (Latest Contact Info)Zbcmqkxynup92/16/2025 2:00 PM ESTOffice Visit [facility] [address] [place] [address] Stanley Toledo MD [address] [facility] [address] [place] [address] (Fax) documented as of this encounter Visit Diagnoses Diagnosis Stage 3b chronic kidney disease (CMS-HCC)- Primary 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 disturbance, psychotic disturbance, mood disturbance, or anxiety (HCC) documented in this encounter Additional Health Concerns AssessmentNoted TimePHQ-9 Depression Total Score: 2:00 PM ESTA fall risk assessment has been completed for the mtgavkc3012/31/2023 8:54 AM EDT documented as of this encounter Care Teams Team MemberRelationshipSpecialtyStart DateEnd Date Stanley Toledo MD [address] [place] [address] PCP - [facility] Reach10/17/22 Joi Zhang LPN [address] [place] [address] 08/26/24documented as of this encounter
--- OUTSIDE RECORDS SUMMARY | 2025-04-16 02:45 | XMS_ITS | Clinical Summary ---
Author Organization [facility] Address [address] [place] [address] Phone Care Team Providers Care Stereoplotter Operator Name Role Phone Stanley Toledo MD Primary Care Provider [phone] Ruby Vickers MD Unavailable Allergies No known active allergies Medications MedicationSigDispense QuantityRefillsLast FilledStart DateEnd DateStatus albuterol 90 mcg/actuation inhaler Inhale 2 puffs every 4 hours if needed.3Active ferrous sulfate, 325 mg ferrous sulfate, tablet Take 1 tablet by mouth once daily with breakfast.Active multivitamin (Multiple Vitamins) tablet Take 1 tablet by mouth once daily.Active furosemide (Lasix) 40 mg tablet Take 1 tablet (40 mg) by mouth once daily.02/04/2024ctive warfarin (Coumadin) 5 mg tablet Indications:Paroxysmal atrial fibrillation (Multi)Take one tablet daily in the evening. Follow with [facility]. Patient will take coumadin and eliquis together for 3 days only 14 tablet 4Active metoprolol succinate XL (Toprol-XL) 25 mg 24 hr tablet Indications:Cardiomyopathy, ischemicTake 1 tablet (25 mg) by mouth once daily. Do not crush or chew. 90 tablet 5Active QUEtiapine (SEROquel) 25 mg tablet Take 1 tablet (25 mg) by mouth once daily at bedtime.5Active amiodarone (Pacerone) 200 mg tablet Indications:Paroxysmal atrial fibrillation (Multi)TAKE 1 TABLET BY MOUTH EVERY DAY 90 tablet 5Active clopidogrel (Plavix) 75 mg tablet Indications:Coronary artery disease involving [place] coronary artery of [place] heart without angina pectorisTake 1 tablet (75 mg) by mouth once daily. 90 tablet 5Active Klor-Con M20 20 mEq ER tablet Indications:HypokalemiaTAKE 1 TABLET BY MOUTH ONCE DAILY. DO NOT CRUSH OR CHEW. 90 tablet 5Active warfarin (Coumadin) 2 mg tablet TAKE 1 TO 2 TABLETS BY MOUTH DAILY DIRECTED BY MEDICATION MANAGEMENT CLINIC 5Active cephalexin (Keflex) 250 mg capsule TAKE 1 CAPSULE BY MOUTH FRIDAY, FRIDAY AND PERXFL855Active donepezil (Aricept) 10 mg tablet Daily at gbotsgs79/11/2025Active fexofenadine (Pham) 180 mg tablet Take 1 tablet (180 mg) by mouth once daily.Active inulin (Fiber Gummies) 2 gram tablet,chewable Chew and swallow.Active methIMAzole (Tapazole) 5 mg tablet Indications:HyperthyroidismTake 1 tablet (5 mg) by mouth once daily. 90 tablet 1116Active nitroglycerin (Nitrostat) 0.4 mg SL tablet Indications:Coronary artery disease involving [place] coronary artery of [place] heart without angina pectorisPlace 1 tablet (0.4 mg) under the tongue every 5 minutes if needed for chest pain. 25 tablet 5Active atorvastatin (Lipitor) 80 mg tablet Indications:HyperthyroidismTake 1 tablet (80 mg) by mouth once daily at bedtime. 90 tablet 3116Active nitroglycerin (Nitrostat) 0.[address] 1 tablet (0.4 mg) under the tongue every 5 minutes if needed for chest pain.03/29/2025Discontinued(Reorder) methIMAzole (Tapazole) 5 mg tablet Indications:High risk medication use,HyperthyroidismTake 1 tablet (5 mg) by mouth 2 times a day. 180 tablet Discontinued(Dose adjustment) rivastigmine (Exelon) 4.6 mg/[address] 1 patch on the skin once daily.Discontinued (Discontinued by another clinician) enoxaparin (Lovenox) 100 mg/mL syringe Indications:Cardiomyopathy, ischemic,S/P [...] the morning of the procedure. 3 each Discontinued(Discontinued by another clinician) atorvastatin (Lipitor) 80 mg tablet Indications:HyperthyroidismTake 1 tablet (80 mg) by mouth once daily at bedtime. 90 tablet Discontinued Active Problems ProblemNoted DateDiagnosed IlxtHijagcyx00/04/7324Yjyupfnfodhjduu80/04/2025ody mass index (BMI) 25.0-25.9, adult10/08/2024Encounter for medication review and dkmzcyespg00/16/2025Encounter to discuss test wocphqw6510/08/2024Encounter to discuss treatment luiqwqb8410/08/2024Encounter to establish care with new provider 10/08/2024Ventricular ectopy/arrhythmia, pre-operative cardiovascular exam 10/08/2024S/P PTCA (percutaneous transluminal coronary angioplasty)02/10/2024 Coronary artery disease involving [place] coronary artery of [place] heart without angina orvivako90/17/2024aroxysmal atrial mozndpchztms05/17/2024Former smoker 02/10/2024High risk medication use02/10/2024STEMI (ST elevation myocardial infarction)02/10/2024ardiomyopathy, /17/0889Clfbytpvaxfe97/18/2024 Essential nhnyvcvpaupe80/18/2024Stage 3b chronic kidney qzgxsgl0805/12/2023 Abdominal aortic aneurysm (AAA) greater than 5.5 cm in diameter in male 11/11/2022Urinary bladder /19/2023Transient cerebral ischemic attack 05/16/2022 Resolved Problems ProblemNoted DateDiagnosed DateResolved DateBMI 26.0-26.9,adult02/10/2024 10/08/2024 Encounters DateTypeDepartmentCare NlgpRieikivmprh16/04/2025 11:00 AM ESTOffice Visit [address] [address] Teo Stokes MD Paroxysmal atrial fibrillation (Multi); High risk medication use; Cardiomyopathy, ischemic; Coronary artery disease involving [place] coronary artery of [place] heart without angina pectoris; S/P PTCA (percutaneous transluminal coronary angioplasty); Essential hypertension; Dyslipidemia; Stage 3b chronic kidney disease (Multi); Transient cerebral ischemia, unspecified type; Former smoker; Body mass index (BMI) 25.0-25.9, adult; Hyperthyroidism Discharge Disposition: Home03/29/20254030Gzybui73/28/2025Scanned Document [facility] [address] [place] [address] Scanning, Generic Provider 03/18/2025Scanned Document [facility] [address] [place] [address] Scanning, Generic Provider 03/17/2025Telephone [address] [phone] Elaine De Luna RN 02/28/2025Scanned Document [facility] [address] [place] [address] Scanning, Generic Provider 02/02/2025Scanned Document [facility] [address] [place] [address] Scanning, Generic Provider 01/28/2025Refill [address] [phone] Teo Stokes MD Iqglusqiwsj40/05/2025Refill [address] [address] Constantin Pruett DO Hyperthyroidism (Primary Dx)from Last 3 Months Immunizations ImmunizationAdministration DatesNext DueFlu vaccine (IIV4), preservative free *Check age/dose*02/22/2021Flu vaccine, quadrivalent, high-dose, preservative free, age 65y+ (FLUZONE)03/06/2022Flu vaccine, quadrivalent, recombinant, preservative free, adult (FLUBLOK)02/22/2020Flu vaccine, trivalent, preservative free, HIGH-DOSE, age 65y+ (Fluzone)03/10/2025,05/20/2022,02/14/2021Influenza, Seasonal, Quadrivalent, Ppxjayctyj79/01/2023Influenza, seasonal, injectable 03/15/2025,03/16/2022neumococcal conjugate vaccine, 20-valent (PREVNAR 20) 4Pneumococcal polysaccharide vaccine, 23-valent, age 2 years and older (PNEUMOVAX 23)04/23/2021SV, 60 Years And Older (AREXVY)08/23/2024Tdap vaccine, age 7 year and older (BOOSTRIX, ADACEL)12/29/2024Zoster vaccine, recombinant, adult (SHINGRIX)12/29/2024 Family History Medical HistoryRelationNameCommentsBrain cancerFatherbowel obstructionMother RelationNameStatusCommentsFatherMother Social History Tobacco UseTypesPacks/DayYears UsedDateSmoking Tobacco: FormerCigarettes Smokeless Tobacco: Never Tobacco Cessation:Counseling Given: Not Answered Alcohol UseStandard Drinks/WeekCommentsNever0 (1 standard drink = 0.6 oz pure alcohol)Sex and Gender InformationValueDate RecordedSex Assigned at BirthNot on fileLegal GqoAqoc52/29/2022 5:17 PM ESTGender IdentityNot on fileSexual OrientationNot on file Last Filed Vital Signs Vital SignReadingTime TakenCommentsBlood Uaqyqoap329/6211 10:56 AM EST Whkuf766303/29/2025 10:56 AM ESTTemperature--Respiratory Rate--Oxygen Saturation-- Inhaled Oxygen Concentration--Borxor62.5 kg (195 lb)03/29/2025 10:56 AM EST Ceahma069 cm (6' 2 )03/29/2025 10:56 AM ESTBody Mass Index25.04105/29/2024 10:56 AM EST Plan of Treatment DateTypeDepartmentCare Team (Latest Contact Info)Tpminttupus88/23/2026 11:20 AM EDTOffice Visit [facility] [address] [facility] [address] [place] [address] Teo Stokes MD [address] [place] [address] Health MaintenanceDue DateLast DoneCommentsCreatinine Level1943Lipid Panel 1943Medicare Annual Wellness Visit (AWV)4Potassium Level 4Diabetes Yslmccxkv92/08/1962CKD: Urine Protein Mdweoueng00/08/1963 Zoster Vaccines (2 of 2)/10/20242125Ehmlojatjuazii91/14/202603/, 01/16/2024, 05/16/2022OVID-19 Vaccine ( season)/, 03/19/2024, 02/16/2023, Additional history existsTSH Level605/02/2025 DTaP/Tdap/Td Vaccines (2 - Td or Tdap)/10/2024Pneumococcal Vaccine Ftdjrxmpd25/03/2024, 04/23/2021SV High Risk: (Elderly (60+) or Population)Ysuvvqjid04/31/2025Influenza NbtlxzrZcpizsynq07/21/2025, 03/10/2025, 03/26/2023, Additional history existsHIB VaccinesAged OutNo longer eligible based on patient's age to complete this topicHPV VaccinesAged OutNo longer eligible based on patient's age to complete this topicHepatitis A VaccinesAged OutNo longer eligible based on patient's age to complete this topicHepatitis B VaccinesAged OutNo longer eligible based on patient's age to complete this topic IPV VaccinesAged OutNo longer eligible based on patient's age to complete this topicMeningococcal VaccineAged OutNo longer eligible based on patient's age to complete this topicRotavirus VaccinesAged OutNo longer eligible based on patient's age to complete this topic Procedures Procedure NamePriorityDate/TimeAssociated DiagnosisCommentsECG 12-LEADRoutine 03/29/2025 11:00 AM EST Paroxysmal atrial fibrillation (Multi) OUTSIDE IMAGING SCAN03/22/2025 OUTSIDE LAB SCAN03/18/2025 OUTSIDE LAB SCAN02/02/2025 TRANSTHORACIC ECHO (TTE) HKASOPABqvcfti95/14/2025 12:[address] elevation myocardial infarction (STEMI), unspecified artery (Multi) Cardiomyopathy, ischemic Coronary artery disease involving [place] coronary artery of [place] heart without angina pectoris S/P PTCA (percutaneous transluminal coronary angioplasty) from Last 3 Months or Most Recently Relevant to Health Maintenance Results * ECG 12 Lead (03/29/2025 11:00 AM EST)Specimen (Source)Anatomical Location / LateralityCollection Method / VolumeCollection TimeReceived Time Narrative CPACS - 03/29/2025 12:02 PM EST Normal sinus rhythm, IVCD, septal myocardial infarction of undetermined age, diffuse repolarization abnormalities, abnormal ECG Authorizing ProviderResult TypeResult StatusTeo Stokes MDECG ORDERABLES Final ResultPerforming OrganizationAddressCity/State/ZIP CodePhone Number CPACS * OUTSIDE IMAGING SCAN (03/22/2025)Anatomical RegionLateralityModalityOther Narrative [...] EDT)ComponentValueRef RangeTest MethodAnalysis TimePerformed AtPathologist SignatureAV mn asnw3erRr SYNGOAV pk vel1.38m/sSYNGOLV Biplane EF38%SYNGOLVOT diam2.23cmSYNGOMV E/A ratio0.70SYNGOMV avg E/e' ratio15.11SYNGOLV EF33%SYNGORV free wall pk S'12.40 cm/oGEVAJENFP57.7uzGiRCTSMNPJVh8.46cmSYNGOAortic Valve Area by Continuity of Peak Velocity1.04ju4GNVFYGD pk zmgq3fzBuQRDBQIsinff Valve Area by Continuity of VTI2.30ej4EQFIXNR A4C EF31.7SYNGOSpecimen (Source)Anatomical Location / LateralityCollection Method / VolumeCollection TimeReceived Time08/06/2024 10:43 AM EDT Narrative SYNGO - 08/11/2024 5:54 PM EDT ?[address], [place] [address] ? TRANSTHORACIC ECHOCARDIOGRAM REPORT Patient Name: ? ALEX GRAJEDA ?Reading Physician: ?[id number] Mally ?Brian CASILLAS Study Date: ? 08/06/2024 ? Ordering Provider: ?[address] [place], [place] [address]LAW Mendez ?STOKES MRN/PID: ?[id number] ?Fellow: Accession#: ? [id number] ?Nurse: Date of /Age: ??1945 / 78 years Patch Worker: ?Marlyn Matthew ?RDCS, RT(R), ?RDMS, RVT Gender Assigned at ??M ? Additional Staff: : Height: ? 187.96 cm ? Admit Date: Weight: ? 92.53 kg ?Admission Status: ? Outpatient BSA / BMI: ?2.19 m2 / 26.19 ? Department Location: ??[facility] ?kg/m2 ? [address] Blood Pressure: 98 /64 mmHg Study Type: ?TRANSTHORACIC ECHO (TTE) LIMITED Diagnosis/ICD: Atherosclerotic heart disease of [place] coronary artery without ? angina pectoris-I25.10; ST elevation (STEMI) myocardial ? infarction of unspecified site-I21.3 Indication: ?STEMI CPT Codes: ? Echo Limited-34406 Patient History: Smoker: ?Former. Pertinent History: A-Fib, [...] m/s ??(0.6-0.9m/s) PV Max PG: ?1.6 mmHg [id number] Mally Torres MD Electronically signed on 08/11/2024 at 5:54:03 PM Final Procedure Note Mally Torres MD - 08/11/[address], [address], [place] [address] TRANSTHORACIC ECHOCARDIOGRAM REPORT Patient Name: ALEX GRAJEDA Reading Physician: [id number] Rosales Study Date: 08/06/2024 Ordering Provider: [id number] ALYSSIA STOKES MRN/PID: [id number] Fellow: Nurse: Date of /Age: 7 1945 / 78 years Patch Worker: Zeke BECERRACS,RT(R), RDMS, RVT Gender Assigned at M Additional Staff: : Height: 187.96 cm Admit Date: Weight: 92.53 kg Admission Status: Outpatient BSA / BMI: 2.19 m2 / 26.19 Department Location: [facility]/m2 [address] [address] Blood Pressure: 98 /64 mmHg Study Type: TRANSTHORACIC ECHO (TTE) LIMITED Diagnosis/ICD: Atherosclerotic heart disease of [place] coronary arterywithout angina pectoris-I25.10; ST elevation (STEMI) myocardial infarction of unspecified site-I21.3 Indication: STEMI CPT Codes: Echo Limited-53401 Patient History: Smoker: Former. Pertinent History: A-Fib, [...] 0.6 m/s (0.6-0.9m/s) PV Max P.6 mmHg [id number] Mally Torres MD Electronically signed on 08/11/2024 at 5:54:03 PM Final Authorizing ProviderResult TypeResult StatusTeo Stokes [facility] [place] PROCEDURESFinal ResultPerforming OrganizationAddressCity/State/ZIP CodePhone Number SYNGO from Last 3 Months or Most Recently Relevant to Health Maintenance Insurance Advance Directives For more information, please contact: [phone] (Available ) TypeDate RecordedPatient RepresentativeExplanationPower of Ujnlwsrf10/4/2025 10:55 AM Care Teams Team MemberRelationshipSpecialtyStart DateEnd Date Stanley Toledo MD [address] [place] [phone] PCP - Evcrzlj49/23/22 Ruby Vickers MD [address] [facility] [address] [place] [address] CardiologistElectrophysiology10/04/24
--- OUTSIDE RECORDS SUMMARY | 2025-04-16 02:46 | XMS_ITS | Clinical Summary ---
Author Organization [facility] Address [address] [place] [address] Care Team Providers Care Bag Sorter Name Role Phone Stanley Emerson MD Unavailable [phone] Joi Zhang LPN Unavailable Stanley Emerson MD Primary Care Provider + [phone] Allergies No known active allergies Medications MedicationSigDispense [...] tablet Take 80 mg by mouth at lkljvwz9001/16/2024ctive nitroglycerin (Nitrostat) 0.[address] [...] 2 tablets (20 mg) by mouth at bsmibfm365Active potassium chloride CR (Klor-Con M20) 20 MEQ ER tablet Take 20 mEq by mouth Daily01/28/2025tive fexofenadine (Pham) 180 MG tablet Take 180 mg by mouth DailyActive Active Problems ProblemNoted DateDiagnosed DateAneurysm of left popliteal xauxzf9803/15/2025 Yyqdtgwpqbu23/21/2025Delirium due to another medical clwfudxom72/11/2025Lower extremity edema10/02/2024ommunity acquired pneumonia of lower lobe of lung 10/02/2024nemia due to stage 3b chronic kidney yloqihv0405/13/2024HF (congestive heart failure)02/17/2024Ischemic zohgvbjuhlluuy80/17/2024resence of stent in LAD coronary hdaixu5001/28/2024Former kkvjkv7601/28/2024ilateral hydronephrosis 10/06/2023Folic acid kwroyjfzfz64/13/2024Vitamin B 12 /13/2024Stage 3b chronic kidney bajrfam7805/12/20232337Araapqhgaei99/27/4646Hwqxqahh82/27/2023OPD with qnrzymkhi14/27/2023PH with urinary osruarrzwoe01/27/2023bdominal aortic aneurysm (AAA) greater than 5.5 cm in diameter in male11/11/2022therosclerosis of right carotid wjtoyk8211/11/2022Essential hypertension, hxmwlt4011/11/2022Hearing difficulty of both ears11/11/20229943Wgkvbbbgdoydhjzb94/19/2023Mixed dyslipidemia 11/11/20224633Mijohovrfr59/19/2023aroxysmal SVT (supraventricular tachycardia) 11/11/2022Simple chronic usxevxggna96/19/2023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 11/11/2022Urinary bladder yqqgsupx83/19/2023Venous insufficiency of lower hjhkyavzs05/19/2023White matter oaodyqi3211/11/2022Transient cerebral ischemic tpettv3205/16/20229705Zqpbjkbleibe85/16/2021Hearing loss11/22/2019Hypertensive zvlhrrhyhhm57/29/2016 Resolved Problems ProblemNoted DateDiagnosed DateResolved DateNew onset a-fib/02/2024 S/P PTCA (percutaneous transluminal coronary angioplasty)/ Metabolic vpsgrsoq84History of bladder jorphs2012/19/2022 12/19/2022Obstructive ntwmwjgz96Sundowning Acute kidney okkboii77Hypertensive nephropathy, stage 1-4 or unspecified chronic kidney bnrxzms95History of cardiovascular bjkrdtdf00igarette hvytom72 Encounters DateTypeDepartmentCare PdxpWrwsnemlios71/11/2025Patient Outreach [facility] [address] [place] [address] Joi Zhang LPN 03/22/2025linisync Result Encounter [facility] External Department Unsolicited Provider, Generic External Data 03/21/2025Patient Outreach [facility] [address] [place] [address] Joi Zhang LPN 03/18/2025linisync Result Encounter [facility] External Department Unsolicited Provider, Generic External Data 03/15/2025Orders Only [facility] [place] [address] [place] [address] Betty Cohen MA 02/28/2025linisync Result Encounter [facility] External Department Unsolicited Provider, Generic External Data 02/09/2025bstract [facility] [place] [address] [place] [address] Stanley Emerson MD 02/02/2025Telephone [facility] [place] [address] [place] [address] Stanley Emerson MD 02/02/2025linisync Result Encounter [facility] External Department Unsolicited Provider, Generic External Data 01/31/2025Patient Outreach [facility] [address] [place] [address] Joi Zhang LPN from Last 3 Months Immunizations ImmunizationAdministration DatesNext DueInfluenza, High Dose Seasonal, Preservative Free05/20/2022,02/14/2021Influenza, High-dose Seasonal, Quadrivalent, Preservative Free03/06/2022Influenza, Seasonal, Quadrivalent, Scezuqaeyk27/01/2023Influenza, injectable, quadrivalent, preservative free 02/22/2021,02/22/2020Influenza, recombinant, quadrivalent, injectable, preservative free02/22/2020Influenza, seasonal, wvqsvndnil02/25/2024,03/16/2022 Moderna Bivalent Booster Krmotmathwr10/04/2022Pfizer Mane Cap SARS-CoV-2 Feywmsxeogl11/11/2022Pfizer Purple Cap SARS-CoV-2 Dwuzptpbney59/25/2024 Pneumococcal Conjugate PCV 4Pneumococcal Polysaccharide PPSV23 04/23/2021SV, recombinant, protein subunit RSVpreF, adjuvant reconstitu, 120mcg/0.5mL, PF (Arexvy)08/23/20247073URWX-AUF-3 (COVID-19) vaccine, mRNA, spike protein, LNP, PF, valente-sucrose, 30 mcg/0.3 mL02/16/20230706UIOL-HlQ-5, Unspecified 10/03/2021 Family History RelationNameStatusCommentsBrotherAlive1 brotherDaughterAlive1 daughterFather DeceasedMotherDeceasedSonAlive1 son Social History Tobacco UseTypesPacks/DayYears UsedDateSmoking Tobacco: FormerCigarettes0.561.3 Started: 12/31/1963Smokeless Tobacco: Never Tobacco Cessation:Counseling Given: Yes Alcohol UseStandard Drinks/WeekCommentsNever0 (1 standard drink = 0.6 oz pure alcohol)B1300 Health LiteracyAnswerDate RecordedHow often do you need to have someone help you when you read instructions, pamphlets, or other written material from your doctor or pharmacy?Nobqnu4712/30/2024Humiliation, Afraid, Rape, and Kick questionnaireAnswerDate RecordedWithin the [...] a week 12/31/2023How often do you attend oriental orthodox or mu-ism services?Never12/31/2023o you belong to any clubs or organizations such as oriental orthodox groups, unions, fraternal or athletic groups, or school groups?No12/31/2023How often do you attend meetings of the clubs or organizations you belong to?Never12/31/2023re you , , , , never , or living with a partner?Avrewtx9212/31/2023UDIT-CAnswerDate RecordedQ1: How often do you have a [...] heating?Not hard at all12/31/2023HQ-2AnswerDate RecordedPatient Health Questionnaire-2 Xtedr07507/14/2023[facility] [place] [facility] - Occupational Stress QuestionnaireAnswerDate RecordedDo you feel stress - tense, restless, nervous, or anxious, or unable to sleep at night because yourmind is troubled all the time - these days?Only a wwhppz9412/30/2024Exercise Vital Sign AnswerDate RecordedOn average, how many [...] homeless or living in a long-term (including now)?No12/31/2023Sex and Gender InformationValueDate RecordedSex Assigned at BirthNot on fileLegal KwqZdrq8608/07/2022 7:16 PM EDTGender IdentityNot on fileSexual OrientationNot on file Last Filed Vital Signs Vital SignReadingTime TakenCommentsBlood Bkoyjlqx02/6805 3:01 PM EDT Whoof814605/13/2024 2:38 PM ESTTemperature--Respiratory Rate--Oxygen Ugnbrhvuog41% 05/13/2024 2:38 PM ESTInhaled Oxygen Concentration--Lrcgzl63.1 kg (203 lb) 09/21/2024 2:08 PM OGVKhznmx552 cm (6' 2 )09/21/2024 2:08 PM EDTBody Mass Index 26.0609/21/2024 2:08 PM EDT Plan of Treatment DateTypeDepartmentCare Team (Latest Contact Info)Fwtzbenftoe87/16/2025 2:00 PM ESTOffice Visit [facility] [address] [facility] [address] [facility] 100 [place] [address] Stanley Emerson MD [address] [facility] 100 [place] [address] Health MaintenanceDue DateLast DoneCommentsCOVID-19 Vaccine ( season) 51, 03/19/2024, 02/16/2023, Additional history existsMedicare Annual Wellness (AWV)5107/14/2023, 05/12/2023neumococcal Vaccine: 65+ KjypzLmxsxnskv96/03/2024, 04/23/2021Influenza PyyndclJvissexss88/21/2025, 03/10/2025, 03/19/2024, Additional history exists Procedures Procedure NamePriorityDate/TimeAssociated DiagnosisCommentsXR CHEST 2V1 12:26 PM EDT ALL THYROID STIM KJUQPMMAoulhrv01/24/2025 8:16 AM EDT ALL LIPID PROFILE (FASTING)Alnblds4903/18/2025 8:16 AM EDT [facility] RRTZbqeipv86/24/2025 8:16 AM EDT ALL BASIC METABOLIC AJNELMvbuoln46/24/2025 8:16 AM EDT TBH VITAMIN D 25 MNTkmfxhp93/06/2025 11:57 AM EDT [facility] YWFDUUEEAhermxe50/06/2025 11:57 AM EDT HM[facility] PTH, FWGWXXOWYNRNTSGckjeza08/06/2025 11:57 AM EDT VITAMIN L12Vjkmpli84/06/2025 11:57 AM EDT FOLATE (FOLIC ACID), AEHGFDzsuaiy90/06/2025 11:57 AM EDT ALL LOYGOXFFKYyqmkkj80/06/2025 11:57 AM EDT ALL URIC RZYSXatwxjw16/06/2025 11:57 AM EDT ALL RENAL FUNCTION TNFMVBtbtuqv00/06/2025 11:57 AM EDT METRO IRON AND TWELRgypqnd46/06/2025 11:57 AM EDT HMHP CBC WITH PLATELET NO DIEWVZXAHFHNOcivyxw42/06/2025 11:57 AM EDT TBH URINE T PROTEIN CREAT UJCQJTknkfqp46/06/2025 11:34 AM EDT ALL DKIFGRJRAZJqrvzuz58/10/2025 1:01 PM EDT from Last 3 Months Results * XR CHEST 2V (03/22/2025 12:26 PM EDT)Anatomical RegionLateralityModalityOther Specimen (Source)Anatomical Location / LateralityCollection Method / Volume Collection TimeReceived Time03/22/2025 12:26 PM EDT Narrative 03/22/2025 12:29 PM EDT [facility] ?[address] ? [place] [address] ?XRay Report ? Signed ? Patient: ALEX GRAJEDA ?MR#: [id number] ?? : 1945 ?Acct:[id number] ?? Age/Sex: 79 / M ?ADM Date: 03/22/25 ?? Loc: RAD ? Attending Dr: MAGDY AL ? Ordering Physician: MAGDY AL ?? Date of Service: 03/22/25 ?? Procedure(s): XR chest 2V ?? Accession Number(s): [id number] ? cc: STANLEY EMERSON ; MAGDY AL ? [facility] ? [address] ? [place] [address] ? Patient Name: ?? ALEX GRAJEDA ? MRN: [id number] ? date: 1945 ?Sex: M ?? Assigned Patient Location: RAD ?? Current Patient Location: RAD ?? Accession/Order Number: [id number] ?? Exam Date: 03/22/2025 ??11:45 ?Report Date: [...] M.D. ??03/22/2025 12:26 PM ? Dictation Location: [facility]-- ? Electronically authenticated by: [id number] ??Y ?? Date: 03/22/2025 ??12:26 ? Dictated By: ?Amy Person M.D. ? Signed By: ?03/22/25 1229 ? DD/ 1226 ? TD/TT: ? Resident Services Coordinator: Procedure Note Radiology, Radiologist, MD - 03/22/2025 [place] [address] XRay Report Signed Patient: ALEX GRAJEDA HMR#: [id number] : 1945cct:[id number] Age/Sex: 79 / MADM Date: 03/22/25 Loc: RAD Attending Dr: MAGDY AL Ordering Physician: MAGDY AL Date of Service: 03/22/25 Procedure(s): XR chest 2V Accession Number(s): [id number] cc: STANLEY EMERSON ; MAGDY AL The [place] [id number] Patient Name: ALEX GRAJEDA MRN: [id number] date: 1945 Sex: M Assigned Patient Location: [facility] Current Patient Location: [facility] Accession/Order Number: [id number] Exam Date: 03/22/2025 11:45 Report Date: 03/22/2025 [...] Person M.D. 03/22/2025 12:26 PM Dictation Location: [place] [address] Electronically authenticated by: [id number] Y Date: 2:26 Dictated By: Amy Person M.D. Signed By:03/22/25 1229 DD/ 1226 TD/TT: Resident Services Coordinator: Authorizing ProviderResult TypeResult StatusGeneric External Data Provider CLIN[facility]NC IMAGINGFinal Result * [facility] AST (03/18/2025 8:16 AM EDT)ComponentValueRef RangeTest MethodAnalysis TimePerformed AtPathologist SignatureASPARTATE AMINO HJLFVRRRWFY4306 - 37 U/L TBHSpecimen (Source)Anatomical Location / LateralityCollection Method / Volume Collection TimeReceived Time03/18/2025 8:16 AM EDT1 8:17 AM EDT Narrative [facility]IN[facility]NC - 03/18/2025 10:29 AM EDT Authorizing ProviderResult TypeResult StatusGeneric External Data Provider CLINISYNCFinal ResultPerforming OrganizationAddressCity/State/ZIP CodePhone Number [facility] * (ABNORMAL) ALL THYROID STIM HORMONE (03/18/2025 8:16 AM EDT)ComponentValueRef RangeTest MethodAnalysis TimePerformed AtPathologist SignatureTHYROID STIMULATING HQBKULS61.644(H)0.358 - 3.740 uIU/mLTBHSpecimen (Source)Anatomical Location / LateralityCollection Method / VolumeCollection TimeReceived Time 03/18/2025 8:16 AM EDT1 8:17 AM EDT Narrative [facility]IN[facility]NC - 03/18/2025 10:29 AM EDT Authorizing ProviderResult TypeResult StatusGeneric External Data Provider CLINISYNCFinal ResultPerforming OrganizationAddressCity/State/ZIP CodePhone Number [facility] * (ABNORMAL) ALL LIPID PROFILE (FASTING) (03/18/2025 8:16 AM EDT)ComponentValue Ref RangeTest MethodAnalysis TimePerformed AtPathologist Signature FFAPXLNLPPGYS27<=150 mg/gDCYIIVMDBHUXMFB77<=200 mg/dLTBHHDL IJZVLCKWMQR47(L)40 - 60 mg/dLTBHComment: > or =60 mg/dl - LOW CARDIOVASCULAR RISK <40 mg/dl - HIGH CARDIOVASCULAR RISK LDL CHOLESTEROL XUZJXNSASG59.0mg/dLTBHComment: <100 mg/dl OPTIMAL 100-129 mg/dl NEAR OR ABOVE OPTIMAL 130-159 mg/dl BORDERLINE HIGH 160-189 mg/dl HIGH >190 mg/dl VERY HIGH VLDL FGYMMEGPIVC00.8mg/dLTBHCHOL HDL RATIO2.2TBHComment: 3.3 - 4.4 ?? LOW RISK 4.4 - 7.1 ?? AVERAGE RISK 7.1 - 11.0 ??MODERATE RISK >11.0 HIGH RISK Specimen (Source)Anatomical Location / LateralityCollection Method / Volume Collection TimeReceived Time03/18/2025 8:16 AM EDT1 8:17 AM EDT Narrative CLIN[facility]NC - 03/18/2025 10:29 AM EDT Authorizing ProviderResult TypeResult StatusGeneric External Data Provider CLINISYNCFinal ResultPerforming OrganizationAddressCity/State/ZIP CodePhone Number [facility] * (ABNORMAL) ALL BASIC METABOLIC PANEL (03/18/2025 8:16 AM EDT)ComponentValueRef RangeTest MethodAnalysis TimePerformed AtPathologist SvcpptcpaEYXMCF879(H)136 - 145 mmol/LTBHPOTASSIUM3.93.5 - 5.1 mmol/CCJESHLLTYXL61714 - 107 mmol/LTBH [place] EROUFTV83.521.0 - 32.0 mmol/LTBHANION GAP16.9PLJTTRTGUO9970 - 106 mg/dL TBHBLOOD UREA MLUWQEXP30.0(H)7.0 - 18.0 mg/dLTBHCREATININE1.80(H)0.70 - 1.30 mg/dLTBHTBH EGFR-AF TKDKXZZR25(L)>=60 mL/min/1.73m 2TBHTBH EGFR-NON AF YDGUQCXC20(L)>=60 mL/min/1.73m 2TBHBUN CREATININE RATIO14.5SVMXBGQJFY9.88.5 - 10.1 mg/dLTBHSpecimen (Source)Anatomical Location / LateralityCollection Method / VolumeCollection TimeReceived Time03/18/2025 8:16 AM EDT1 8:17 AM EDT Narrative [facility] - 03/18/2025 10:29 AM EDT Authorizing ProviderResult TypeResult StatusGeneric External Data Provider CLINISYNCFinal ResultPerforming OrganizationAddressty/State/ZIP CodePhone Number [facility] * VITAMIN B12 (02/28/2025 11:57 AM EDT)ComponentValueRef RangeTest Method Analysis TimePerformed AtPathologist SignatureVITAMIN [id number] - 1245 pg/mL TBHComment: Performed at: ??[facility] ??[id number] Playroom Attendant: Morgan Carpenter PhD, Phone: ??[phone] Specimen (Source)Anatomical Location / LateralityCollection Method / Volume Collection TimeReceived Time02/28/2025 11:57 AM EDT1 11:59 AM EDT Narrative CLIN[facility]OR - 03/01/2025 4:07 AM EDT Authorizing ProviderResult TypeResult StatusGeneric External Data ProviderLAB BLOOD ORDERABLESFinal ResultPerforming OrganizationAddCommunity Health Systemsty/State/ZIP Code Phone Number [facility] * FOLATE (FOLIC ACID), SERUM (02/28/2025 11:57 AM EDT)ComponentValueRef Range Test MethodAnalysis TimePerformed AtPathologist SignatureFOLATE (FOLIC ACID) >20.0>3.0 ng/mLTBHComment: A serum folate concentration of less than 3.1 ng/mL is considered to represent clinical deficiency. Performed at: ??[facility] ??[id number] Playroom Attendant: Morgan Carpenter PhD, Phone: ??[phone] Specimen (Source)Anatomical Location / LateralityCollection Method / Volume Collection TimeReceived Time02/28/2025 11:57 AM EDT1 3:01 PM EDT Narrative CL[facility]OR - 03/01/2025 4:07 AM EDT Authorizing ProviderResult TypeResult StatusGeneric External Data ProviderLAB BLOOD ORDERABLESFinal ResultPerforming OrganizationAddressCity/State/ZIP Code Phone Number [facility] * TBH VITAMIN D 25 [place] (02/28/2025 11:57 AM EDT)ComponentValueRef RangeTest MethodAnalysis TimePerformed AtPathologist SignatureVITAMIN D56.8ng/mLTBH Comment: <20 ng/mL Vit D deficient 20-<30 ng/mL Vit D insufficient 30-100 ng/mL ??Vit D sufficient >100 ng/mL Potential Toxicity Specimen (Source)Anatomical Location / LateralityCollection Method / Volume Collection TimeReceived Time02/28/2025 11:57 AM EDT1 11:59 AM EDT Narrative [facility] - 03/02/2025 5:25 PM EDT Authorizing ProviderResult TypeResult StatusGeneric External Data Provider CLINISYNCFinal ResultPerforming OrganizationAddCommunity Health Systemsty/[facility] CodePhone Number [facility] * (ABNORMAL) MET[facility] IRON AND TIBC (02/28/2025 11:57 AM EDT)ComponentValueRef RangeTest MethodAnalysis TimePerformed AtPathologist SignatureTBH IRON29.0(L) 65.0 - 175.0 ug/dLTBHTBH TOTAL IRON BINDING EXZKWGCN300.0250.0 - 450.0 ug/dL TBHTBH PERCENT IRON SATURATION9.6%TBHSpecimen (Source)Anatomical Location / LateralityCollection Method / VolumeCollection TimeReceived Time02/28/2025 11:57 AM EDT1 11:59 AM EDT Narrative [facility] - 02/28/2025 12:40 PM EDT Authorizing ProviderResult TypeResult StatusGeneric External Data Provider CLINISYNCFinal ResultPerforming OrganizationAddWell[facility] CodePhone Number [facility] * (ABNORMAL) HMHP PTH, INTRAOPERATIVE (02/28/2025 11:57 AM EDT)ComponentValueRef RangeTest MethodAnalysis TimePerformed AtPathologist SignaturePTH, LAOLLU70(A) 15 - 65 pg/mLTBHComment: Performed at: ?? - [facility] [address] ??[id number] Playroom Attendant: Morgan Carpenter PhD, Phone: ??[phone] Specimen (Source)Anatomical Location / LateralityCollection Method / Volume Collection TimeReceived Time02/28/2025 11:57 AM EDT1 11:59 AM EDT Narrative [facility]IN[facility]NC - 03/01/2025 2:10 PM EDT Authorizing ProviderResult TypeResult StatusGeneric External Data Provider CLINISYNCFinal ResultPerforming OrganizationAddressCity/State/ZIP CodePhone Number [facility] * (ABNORMAL) [facility] CBC WITH PLATELET NO DIFFERENTIAL (02/28/2025 11:57 AM EDT) ComponentValueRef RangeTest MethodAnalysis TimePerformed AtPathologist SignatureTBH WBC7.14.0 - 11.0 10 3/uLTBHTBH RBC4.36(L)4.70 - 6.10 10 6/uLTBH TBH HGB11.6(L)14.0 - 18.0 g/dLTBHTBH HCT38.4(L)42.0 - 54.0 %TBHTBH MCV88.180.0 - 94.0 fLTBHTBH MCH26.625.9 - 34.0 pgTBHTBH MCHC30.229.9 - 35.2 g/dLTBHTBH RDW 15.7(H)11.0 - 15.0 %TBHTBH OHB289192 - 450 10 3/uLTBHTBH MPV10.09.5 - 13.5 fL TBHSpecimen (Source)Anatomical Location / LateralityCollection Method / Volume Collection TimeReceived Time02/28/2025 11:57 AM EDT1 11:59 AM EDT Narrative [facility] - 02/28/2025 12:08 PM EDT Authorizing ProviderResult TypeResult StatusGeneric External Data Provider CLINISYNCFinal ResultPerforming OrganizationAddressCity/State/ZIP CodePhone Number [facility] * [facility]CF FERRITIN (02/28/2025 11:57 AM EDT)ComponentValueRef RangeTest Method Analysis TimePerformed AtPathologist YuhrflgszKSZJNTVL56.026.0 - 388.0 ng/mL TBHSpecimen (Source)Anatomical Location / LateralityCollection Method / Volume Collection TimeReceived Time02/28/2025 11:57 AM EDT1 11:59 AM EDT Narrative [facility] - 03/02/2025 5:25 PM EDT Authorizing ProviderResult TypeResult StatusGeneric External Data Provider CLINISYNCFinal ResultPerforming OrganizationAddressCity/State/ZIP CodePhone Number [facility] * ALL URIC ACID (02/28/2025 11:57 AM EDT)ComponentValueRef RangeTest Method Analysis TimePerformed AtPathologist SignatureURIC ACID6.53.5 - 7.2 mg/dLTBH Specimen (Source)Anatomical Location / LateralityCollection Method / Volume Collection TimeReceived Time02/28/2025 11:57 AM EDT1 11:59 AM EDT Narrative [facility] - 02/28/2025 12:40 PM EDT Authorizing ProviderResult TypeResult StatusGeneric External Data Provider CLINISYNCFinal ResultPerforming OrganizationAddressCity/State/ZIP CodePhone Number [facility] * (ABNORMAL) ALL RENAL FUNCTION PANEL (02/28/2025 11:57 AM EDT)ComponentValueRef RangeTest MethodAnalysis TimePerformed AtPathologist WkxgjscskXPBJXD181276 - 145 mmol/LTBHPOTASSIUM3.83.5 - 5.1 mmol/RCPKCUKVLCJX792(H)98 - 107 mmol/LTBH [place] LWKEXIY86.921.0 - 32.0 mmol/LTBHANION GAP12.2KYLLRPCXRK18428 - 106 mg/dLTBHBLOOD UREA RKHUXPNG81.0(H)7.0 - 18.0 mg/dLTBHCREATININE2.27(H)0.70 - 1.30 mg/dLTBHTBH EGFR-AF UFRNSRVS84(L)>=60 mL/min/1.73m 2TBHTBH EGFR-NON AF OQUZKOBB51(L)>=60 mL/min/1.73m 2TBHBUN CREATININE RATIO13.1YYFVRJLNPZ1.68.5 - 10.1 mg/dLTBHPHOSPHORUS3.12.6 - 4.7 mg/dLTBHALBUMIN LEVEL3.83.4 - 5.0 g/dLTBH Specimen (Source)Anatomical Location / LateralityCollection Method / Volume Collection TimeReceived Time02/28/2025 11:57 AM EDT1 11:59 AM EDT Narrative [facility] - 02/28/2025 12:40 PM EDT Authorizing ProviderResult TypeResult StatusGeneric External Data Provider CLINISYNCFinal ResultPerforming OrganizationAddressCity/State/ZIP CodePhone Number [facility] * ALL MAGNESIUM (02/28/2025 11:57 AM EDT)ComponentValueRef RangeTest Method Analysis TimePerformed AtPathologist SignatureMAGNESIUM2.31.8 - 2.4 mg/dLTBH Specimen (Source)Anatomical Location / LateralityCollection Method / Volume Collection TimeReceived Time02/28/2025 11:57 AM EDT1 11:59 AM EDT Narrative [facility] - 02/28/2025 12:40 PM EDT Authorizing ProviderResult TypeResult StatusGeneric External Data Provider CLINISYNCFinal ResultPerforming OrganizationAddressCity/State/ZIP CodePhone Number [facility] * (ABNORMAL) TBH URINE T PROTEIN CREAT RATIO (02/28/2025 11:34 AM EDT)Component ValueRef RangeTest MethodAnalysis TimePerformed AtPathologist SignatureTOTAL PROTEIN URINE RANDOM7.7<=11.9 mg/dLTBHCREATININE URINE USRYOM05.47(L)20.00 - 300.00 mg/dLTBHPROTEIN CREATININE RATIO URINE0.47TBHSpecimen (Source) Anatomical Location / LateralityCollection Method / VolumeCollection Time Received Time02/28/2025 11:34 AM EDT1 11:59 AM EDT Narrative [facility] - 02/28/2025 12:53 PM EDT Authorizing ProviderResult TypeResult StatusGeneric External Data Provider CLINISYNCFinal ResultPerforming OrganizationAddressCity/State/ZIP CodePhone Number [facility] * (ABNORMAL) ALL HEMOGLOBIN (02/02/2025 1:01 PM EDT)ComponentValueRef RangeTest MethodAnalysis TimePerformed AtPathologist SignatureTBH HGB10.9(L)14.0 - 18.0 g/dLTBHSpecimen (Source)Anatomical Location / LateralityCollection Method / VolumeCollection TimeReceived Time02/02/2025 1:01 PM EDT02/02/2025 1:04 PM EDT Narrative [facility] - 02/02/2025 1:15 PM EDT Authorizing ProviderResult TypeResult StatusGeneric External Data Provider CLINISYNCFinal ResultPerforming OrganizationAddressCity/State/ZIP CodePhone Number [facility] from Last 3 Months Insurance Care Teams Team MemberRelationshipSpecialtyStart DateEnd Date Stanley Emerson MD [address] [place] [address] (Fax) PCP - ACO Reach10/17/22 Stanley Emerson MD [address] [place] [address] (Fax) PCP - GeneralFamily Rewccjwq11/12/25 Joi Zhang LPN [address] [place] [address] 08/26/24
--- NOTE | 2025-04-16 02:47 | PC.NURSE ---
Folet cath was changed by urologist on 04/15/25 at 8pm pt reports not putting out urine.
--- OUTSIDE RECORDS SUMMARY | 2025-04-16 02:47 | XMS_ITS | CCD ---
Author Organization [facility] Care Team Providers Care Pediatric Intensive Physician Name Role Phone Stanley Emerson Unavailable Unavailable [...] Attending Provider MD Margarito Valentine Admit Provider [phone] MOMO Omalley Attending Provider Carlene Kasper Unavailable [...] Dr. Stanley Mercado Primary Care Unava ilable La, Dr. Teo Poon Referring Araceli vailable Al, [...] Attending Provider MD Willy Lambert Attending Provider [phone] DO Nas Pruett Admit Provider DO Nas Pruett Attending Provider MD Myesha Feliz Other Provider MD Rogelio Rai Other Provider WATSON Truong Other Provider DO Mckay Yeboah Jr Other Provider MD Ryley Hoyt Other Provider [phone] ROCIO Randle Other Provider Unavailable ROCIO Alvarez Other Provider Unavailable ROCIO Delgado Other Provider Unavailable ROCIO Rogel Other Provider Unavailable ROCIO Li Other Provider Unavailable MD Radha Berrios Other Provider DO Khanh Deluca Other Provider MD Ronald Martinez Other Provider [phone] DO Bernabe Cr Other Provider MD Jerrell Gonsales Other Provider MD Mary Ellen Zambrano Other Provider [phone] MD Anand Mckenzie Other Provider Unavailable [...] Provider MD Chi Smith Other Provider [phone] WATSON Najera Other Provider MD Dana Haddad Other Provider MD Emmanuel Silverman Other Provider ROCIO Moore Other Provider Unavailable Stanley Emerson MD Primary Care Provider Stanley Emerson MD Unavailable Stanley Emerson MD Primary Care Provider Black GUIDE PLANT, Dora Unavailable WATSON Bailey Attending Provider WATSON Truong Other Provider Stanley Emerson MD Unavailable Stnaley Emerson MD Primary Care Provider Stanley Emerson MD Unavailable Stanley Emerson MD Primary Care Provider [phone] Stanley Emerson MD Primary Care Provider Stanley Emerson MD Primary Care Provider Teo Al MD Attending Provider Blanca Boles Attending Unavailable Katia SAMUELS Attending Unavailable MOMO OMALLEY Attending Unavailab MOMO Kruger Attending Unavailab MOMO Kruger Attending Unavailab Katia Fong Admitting Unavailable Katia SAMUELS Attending Unavailable Fabi Gomez Attending Unavailable Zhang GUIDE PLANT, Joi Unavailable Unavailable Black GUIDE PLANT, Dora Unavailable Talya Bo MD Attending Provider Stanley Emerson MD Primary Care Provider Katia SAMUELS Attending Unavailable Fabi Gomez Attending Unavailable Blanca Boles Attending Unavailable Blanca Boles Attending Unavailable Fabi Gomez Attending Unavailable Katia SAMUELS Attending Unavailable Katia SAMUELS Admitting Unavailable Katia SAMUELS Attending Unavailable BONI TARIF Referring Unavailable STANLEY EMERSON Primary Care Unavailable SERVANDO HALL S Attending Unavailable STANLEY EMERSON Primary Care Unavailable RAFAEL, PRABHSHARN S Admitting Unavailable RAFAEL, PRABHSHARN S Attending Unavailable FILI GANDARA Consulting Unavailable SHAHRIAR LEWIS Referring Unavailable FROY RAZO Consulting Unavailable GOLDY GARLAND Consulting Unavailable HEATHER ROMO Consulting Unavailable MORIS BARRAGAN Consulting Unavailable Ruby Montana MD Unavailable Robe Hansen DO Attending Provider [phone] TEO AL Referring Unavailable STANLEY EMERSON Primary [...] Consulting Unavailable Khanh Deluca Consulting Unavailable Ronald Martinze Consulting Unavailable Bernabe Cr Consulting Unavailabl Jerrell Haley Consulting Unavailable Susana Zambranoa Consulting Unavailable Anand Mckenzie Consulting Unavailable Roseann Velasco Consulting Unavailabl e Jagjit Swenson Consulting Unavailable Pawel Sanford Consulting Unavailable Taz Barnes Consulting Unavailable Rupa Tran Consulting Unavailable Roldan Masterson Consulting Unavailable Kyle Ivy Consulting Unavailable Jad Jaffe Consulting Unavailable Vidya Hernandez Consulting Unavailable Valdo Sandra Consulting Unavailable Rob Almazan Consulting Unavailab Danielito Campoverde Consulting Unavailable Seb Bonds Consulting Unavailable Basilio Tam Consulting Unavailable Reji Garcia Consulting Unavailable Lydia Rene Consulting Unavailable Lucas Dumas Consulting Unavailable ObCortney camejo Consulting Unavailable Jakob Lomax Consulting Unavailable IlanomaNick [...] Al Admitting Unavailable Robe Hansen Attending Unavailable Robe Hansen Admitting Unavailable Talya Bo Attending Unavailable DiabTalya A Admitting Unavailable HemeStanley billingsley Primary Care Unavailable Rob Peña Attending Unavailab le Rob Peña Admitting Unavailab STANLEY Bennett Attending Unavailable STANLEY EMERSON Attending Unavailable STANLEY EMERSON Attending Unavailable STANLEY EMERSON Attending Unavailable STANLEY EMERSON Attending Unavailable STANLEY EMERSON Attending Unavailable STANLEY EMERSON Attending Unavailable STANLEY EMERSON Attending Unavailable STANLEY EMERSON Attending Unavailable Fabi Gomez Attending Unavailable MOMO OMALLEY Attending Unavailab Katia Fong Admitting Unavailable Katia SAMUELS Attending Unavailable Katia SAMUELS Attending Unavailable Eboni Anderson Attending Unavailable Stanley Emerson MD Primary Care Provider [phone] Celia Griffin MD Attending Provider Black GUIDE PLANT, Dora Unavailable Rupesh GUIDE PLANT, Christina Unavailable Unavailable Ruby Montana MD Unavailable TEO AL Attending Unavailable AL, BRUCE M Referring Unavailable LUISYER, STANLEY Rich Primary Care Unavailable AL, TEO M Attending Unavailable AL, BRUCE M Referring Unavailable HEMEYER, STANLEY Rich Primary Care Unavailable AL, TEO M Attending Unavailable AL, TEO M Referring Unavailable HEMECHERY, STANLEY Rich Primary Care Unavailable TEO AL M Attending Unavailable IDANIA, STANLEY Rich Primary Care Unavailable RUBY MONTANA Attending Unavailable MIKAELA, TEO Mendez Referring Unavailable IDANIA, STANLEY Rich Primary Care Unavailable Orzech, Blanca X Attending Unavailable Eboni Anderson Attending Unavailable Orzech, Blanca X Attending Unavailable Orzech, Blanca X Attending Unavailable Orzech, Blanca X Attending Unavailable Orzech, Blanca X Admitting Unavailable Orzech, Blanca X Attending Unavailable Eboni Anderson Attending Unavailable Allergies Allergy ClassificationReported Allergen(s)Allergy TypeDate of OnsetReaction(s) Facility (4 sources)No Known Medication Allergies; Translations: [No Known Medication Allergies]Propensity to adverse reactions (disorder)[facility] Repository Medications Current Medications MedicationDrug Class(es)DatesSig (Normalized)Sig (Original)Acetaminophen (4 sources)Start: 58-15-3339jttdvyqadmuou (TYLENOL) tablet 650 mgtake 2 tablets by mouth every eight hoursAcetaminophen ER 650 MG 2 tablets as needed Orally every 8 hrs Activeacetaminophen 325 mg / HYDROcodone bitartrate 7.5 mg oral tablet (2 sources)Opioid AgonistStart: 64-04-4518yrnc 1 tablet by mouth once, then take 1 tablet by mouth every hourNorco 325 mg-7.5 mg oral tablet 1 tab(s), Oral, Once, 1 tab(s), Refill(s) 0, Take 1 hour prior to procedure, [facility]/pharmacy #[id number], 187, cm, 03/11/23 13:44:00 EDT, Height/Length Dosing, 93, kg, 03/11/2313:44:00 EDT, Weight Dosing Start Date: 05/06/23 Status: [id number] 200 actuat albuterol 0.09 mg/actuat metered dose inhaler (20 sources)beta2-Adrenergic AgonistStart: 41-46-7294cmfg 2 puff(s) by inhalation every six hours as needed for wheezingalbuterol sulfate HFA (PROVENTIL;VENTOLIN;PROAIR) 108 (90 Base) MCG/ACT inhaler Inhale 2 puffs intothe lungs every 6 hours as needed for Wheezing or Shortness of Breath 18 g 10/05/2024 ActiveStart: .5 mg, Nebulization, EVERY 6 HOURS PRN, Starting on 10/02/24 at 1102, Until Discontinued, Wheezing, Initiate RT Bronchodilator Protocol: Yes - Inpatient ProtocolStart: 34-29-6915jzgd 1 puff(s) by inhalation every six hours as needed for wheezingAlbuterol Sulfate 90 mcg/actuation HFA aerosol inhaler Active 2 PUFF INHALATION Every 6 hours as nee ded for shortness of breath or wheezing October 22, 2023 12:00am Complies with drug therapyStart: 09-30-2023 End: 54-75-9987gmjh 2 puff(s) by inhalation every six hours for wheezing albuterol HFA 90 mcg/act inhaler Indications: Simple chronic bronchitis (HCC) Inhale 2 puffs every 6 (six) hours if needed for wheezing 54 g 1 09/30/2023 ActiveStart: 53-26-7233ttqt 2 puff(s) by inhalation every four hoursalbuterol 90 mcg/actuation inhaler Inhale 2 puffs every 4 hours if needed. 12/17/2022 Active Start: 38-98-0207Ytsrcdbas Sulfate HFA 108 (90 Base) MCG/ACT Inhalation Aerosol Solution Quantity: 54 Refills: 0 Ordered: 03-Jun-2022 DO Start : 03-Jun-2022 ActiveStart: 05-16-2022 End: 45-33-8740wtyj 1 puff(s) by inhalation three times daily [...] HFA) 90 mcg/inh inhalation aerosol (20 sources)Start: 31-49-1688Fyvkweywb (Eqv-ProAir HFA) 90 mcg/inh inhalation aerosol Refill(s) 0 Start Date: 06/10/22 Status: Ordered Medication Dispense Status: Completed Total Allowed Fills: 1 Fills Dispensed: 0Start: 06-10-2022 Albuterol (Eqv-ProAir HFA) 90 mcg/inh inhalation aerosol Refill(s) 0 Start Date: 06/10/22 Status: Ordered Repeat number: 1Start: 13-15-3207Tzqypsayb (Eqv-ProAir HFA) 90 mcg/inh inhalation aerosol Refill(s) 0 Start Date: 06/10/22 Status: Ord eredamiodarone hydrochloride 200 mg oral tablet (20 sources)AntiarrhythmicStart: 02-10-2024 End: 23-32-8397nwkltueqms 200 mg Tab 200 mg = 1 tab(s), Refills(s) 0 Start Date: 04/06/24 Status: Ordered Medication Dispense Status: Completed Total Allowed Fills: 1 Fills Dispensed: 0Start: 01-23-2024 End: 20-84-5679fnew 1 tablet by mouth twice dailyAmiodarone 200 mg Tablet Discontinued 200 MG PO Twice daily 60 January 23, 2024 12:00am 2023 12:52pmamLODIPine 5 mg oral tablet (20 sources)Dihydropyridine Calcium Channel BlockerStart: 10-53-1401awxp 5 mg by mouth twice dailyamlodipine 5 mg, Oral, BID, Refills(s) 0 Start Date: 04/06/24 Status: Ordered Repeat number: 1Start: 12-31-2023 End: 28-23-5625meyw 1 tablet by mouth once dailyAmlodipine 5 mg tablet Discontinued 5 MG PO Daily December 31, 2023 12:00am January 23, 2024 2:59pm Start: 06-10-2023 End: 40-86-0793zdip 1 tablet by mouth twice dailyAmlodipine 5 mg tablet Discontinued 5 MG PO Twice daily October 22, 2023 12:00am November 14, 2023 9:36am Start: 68-53-6946zpzh 1 tablet by mouth every twelve hoursNorvasc 5 MG 1 tablet Orally bid for 90 days Mar, ActiveStart: 47-47-6796iibk 1 tablet by mouth every twenty-four hoursNorvasc 5 MG 1 tablet Orally Once a day for 90 days Mar, Activeapixaban 2.5 mg oral tablet (20 sources)Factor Xa InhibitorStart: 01-23-2024 End: 76-00-5539Zqrbdzl 2.5 mg oral tablet Refills(s) 0 Start Date: 04/06/24 Status: Ordered Repeat number: 1atorvastatin 80 mg oral tablet (20 sources)HMG-CoA Reductase InhibitorStart: 01-16-2024 End: 03-87-2292hzoe 1 tablet by mouth once dailyatorvastatin 80 mg Tab 80 mg = 1 tab(s), Oral, Daily, # 30 tab(s), Refills(s) 0 Start Date: 03/02/24Status: Ordered Medication Dispense Status: Completed Quantity: 30.0 Unit: tab(s) Total Allowed Fills: 1 Fills Dispensed: 0cephalexin 250 mg oral capsule (20 sources)Cephalosporin AntibacterialStart: 64-63-3233usxmbvktwr (Keflex) 250 mg capsule TAKE 1 CAPSULE BY MOUTH FRIDAY, FRIDAY AND Friday03/01/2025 A ctiveStart: 20-87-5876dzyr 1 capsule by mouth once dailyKeflex 500 mg Cap 500 mg = 1 cap(s), Oral, Daily, Take 1 capsule the day before the procedure and 1 capsule after the procedure, # 2 cap(s), Refills(s) 0, Pharmacy: [facility]/pharmacy #[id number], 187, cm, 07/15/24 10:46:00 EST, Height/Length Dosing, 93, kg, 07/15/24 10:46:00 EST, Weight Dosing Start Date: 09/24/24 Status: Ordered Quantity: 2.0 Unit: cap(s) Repeat number: 1Start: 09-09-2024 End: 18-41-6501Loxnri 250 mg Cap 250 mg = 1 cap(s), Oral, MonWedFri, X 30 day(s), # 13 cap(s), Refills(s) 11, Pharmacy: [facility]/pharmacy #[id number], 187, cm, 07/15/24 10:46:00 EST, Height/Length Dosing, 93, kg, 07/15/24 10:46:00 EST, Weight Dosing Start Date: 09/09/24 Stop Date: 09/04/25 Status: Ordered Medication Dispense Status: Completed Quantity: 13.0 Unit: cap(s) Total Allowed Fills: 12 Fills Dispensed: 0Start: 47-38-8092ksfn 1 capsule by mouth once dailyKeflex 250 mg Cap 250 mg = 1 cap(s), Oral, Daily, # 30 cap(s), Refills(s) 1, Pharmacy: [facility]/pharmacy#[id number], 187, cm, 07/15/24 10:46:00 EST, Height/Length Dosing, 93, kg, 07/15/24 10:46:00 EST, Weight Dosing Start Date: 07/15/24 Status: OrderedStart: 06-22-2024 End: 27-38-3006sxfd 1 capsule by mouth in the morningcephalexin (Keflex) 250 mg capsule Take 1 capsule (250 mg) by mouth early in the morning.. 07/18/2024 10/08/2024 Discontinued (Med List Cleanup)Start: 04-28-2024 End: 57-64-7608gtyp 1 capsule by mouth in the morning, then take 1 capsule by mouth in the evening, then take 1 capsule by mouth at bedtimecephalexin (Keflex) 500 MG capsule Take 500 mg by mouth in the morning and 500 mg in the evening and 500 mg before bedtime. 04/28/2024 05/13/2024 Discontinued (Therapy completed) Start: 42-81-5449ivaz 1 mg by mouth every twelve hoursKeflex 500 mg Cap mg cap(s), Oral, q12hr, Refills(s) 0 Start Date: 10/03/23 Status: Ordered End: 79-25-6160jorw 1 capsule by mouth three times dailycephalexin (Keflex) 500 mg capsule Take 1 capsule (500 mg) by mouth 3 times a day. 02/10/2024 Discon tinued (Other)clopidogrel (20 sources)P2Y12 Platelet InhibitorStart: 25-52-7704bmavxwglzae 75 mg, Refills(s) 0 Start Date: 04/06/24 Status: Ordered Medication Dispense Status: Completed Total Allowed Fills: 1 Fills Dispensed: 0Start: 93-16-5959mkyuxjqxpcg 75 mg, Refills(s) 0 Start Date: 04/06/24 Status: Ordered Repeat number: 1Start: 81-79-4214oxretdvuoaz 75 mg, Refills(s) 0 Start Date: 04/06/24 Status: Ordered Start: 71-67-8465yujl 1 tablet by mouth once dailyclopidogrel (Plavix) 75 mg tablet Indications: Coronary artery disease involving [place] coronary artery of [place] heart without angina pectoris Take 1 tablet (75 mg) by mouth once daily. 90 tablet 01/03/2025 ActiveStart: 40-76-3215mzjwjbfijxx (Plavix) 75 mg tablet Indications: Coronary artery disease involving [place] coronary artery of [place] heart without angina pectoris Patient will take 4 tablets ( 300mg) one time only, then will take one tablet daily 90 tablet 3 03/05/2024 Activedonepezil hydrochloride 10 mg oral tablet (20 sources)Start: 11-19-2024 End: 42-36-6057kwhs 2 tablets by mouth at bedtimedonepezil (Aricept) 10 MG tablet Indications: 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 disturbance, psychotic disturbance, mood disturbance, or anxiety (HCC) Take 2 tablets (20 mg) by mouth at bedtime 11/19/2024 05/18/2025 ActiveStart: 10-22-2024 End: 17-28-4310pbju 1 tablet by mouth once daily at bedtimedonepezil 10 mg Tab 10 mg = 1 tab(s), Oral, Once a day (at bedtime) Start Date: 11/16/24 Status: Orde red Medication Dispense Status: Completed Total Allowed Fills: 1 Fills Dispensed: 0doxycycline hyclate 100 mg oral capsule (11 sources)Tetracycline-class DrugStart: 03-31-2025 End: 37-81-0363whwflqaqbpe hyclate 100 mg Cap 100 mg = 1 cap(s), Oral, BID, may substitute hyclate for monohydratebased on availability, X 7 day(s), # 14 cap(s), Refills(s) 0, Pharmacy: [facility]/pharmacy #[id number], 187, cm, 03/31/25 15:35:00 EST, Height/Length Dosing, 93, kg, 03/31/25 15:35:00 EST, Weight Dosing Start Date: 03/31/25 Stop Date: 04/07/25 Status: Ordered Medication Dispense Status: Completed Quantity: 14.0Unit: cap(s) Total Allowed Fills: 1 Fills Dispensed: 0 Start: 03-08-2024 End: 41-54-0462olmhzykfhcw (Vibramycin) 100 MG capsule Indications: Pneumonia Take 100 mg by mouth in the morning and 100 mg before bedtime. Take with at least 8 ounces (large glass) of water, do not lie down for 30 minutes after. 03/08/2024 03/19/2024 ExpiredStart: 03-08-2024 End: 79-79-2809hqsb 1 capsule by mouth twice dailyDoxycycline Hyclate 100 mg capsule Discontinued 100 MG PO Twice daily 20 March 08, 2024 12:00am August 11, 2024 10:30am1 ml enoxaparin sodium 100 mg/ml prefilled syringe (2 sources)Low Molecular Weight HeparinStart: 10-08-2024 End: 01-45-5479vbrugpsabv (Lovenox) 100 mg/mL syringe Indications: Cardiomyopathy, ischemic [...] morning of the procedure. 3 each 10/08/2024 03/29/2025 Discontinued (Discontinued by another clinician)Ferric Carboxymaltose (3 sources)Start: 61-66-7099fhvzmg 100 mg intravenously every weekStart: 11-02-2024 End: 80-04-4882ljahuc 100 mg intravenously every weekFerric Carboxymaltose (Injectafer) 100 mg iron/2 mL solution Discontinued 750 MG IV Q7D November 02 12:00am December 06, 2024 4:11pmStart: 67-81-2181dciovj 100 mg intravenously every weekFerric Carboxymaltose (Injectafer) 100 mg iron/2 mL solution Active 750 MG IV Q7D November 02, 2024 12:00amferrous sulfate 325 mg oral tablet (20 sources)Start: 54-66-7997qqwm 325 mg by mouth once daily at mejtpzxya436 mg, Oral, DAILY WITH BREAKFAST, First dose (after last modification) on Fri10/06/24 at 0800, Until DiscontinuedStart: 08-11-2024 End: 62-25-2747rjsk 1 tablet by mouth twice dailyFerrous Sulfate 325 mg (65 mg iron) tablet Active 325 MG PO Twice daily 180 November 29, 2024 4:34pm Complies with drug therapyStart: 93-47-3688uslp 1 tablet by mouth once dailyferrous sulfate (as elemental iron) 45 mg oral tablet, extended release 45 mg = 1 tab(s), Oral, Daily, # 30 tab(s), Refills(s) 0 Start Date: 03/02/24 Status: Ordered Medication Dispense Status: Completed Quantity: 30.0 Unit: tab(s) Total Allowed Fills: 1 Fills Dispensed: 0Start: 10-22-2023 End: 46-68-8925kaby 1 tablet by mouth once dailyFerrous Sulfate 142 mg (45 mg iron) tablet extended release Discontinued 142 MG PO Daily October 22, 2023 12:00am August 11, 2024 10:37amtake 1 tablet by mouth once daily at breakfast ferrous sulfate, 325 mg ferrous sulfate, tablet Take 1 tablet by mouth once daily with breakfast. Activefexofenadine hydrochloride 180 mg oral tablet (2 sources)Histamine-1 Receptor Antagonisttake 1 tablet by mouth once daily fexofenadine (Anahi) 180 mg tablet Take 1 tablet (180 mg) by mouth once daily. ActiveFIBER ADULT GUMMIES PO (20 sources)take 2 tablets by mouth once dailyFIBER ADULT GUMMIES PO Take 2 tablets by mouth Daily Activefurosemide 40 mg oral tablet (20 sources)Loop DiureticStart: 05-03-2024 End: 98-95-8784pqqu 1 tablet by mouth once dailyFurosemide 40 mg tablet Active 0 .ROUTE .COMPLEX 90 January 02, 2025 2:55pm TAKE 1 TABLET BY MOUTHEVERY DAY Complies with drug therapyStart: 02-04-2024 End: 51-65-1716kctm 1 tablet by mouth once dailyfurosemide 40 mg Tab TAKE 1 TABLET BY MOUTH EVERY DAY Start Date: 03/02/24 Status: Ordered Medication Dispense Status: Completed Total Allowed Fills: 1 Fills Dispensed: 0inulin 2000 mg chewable tablet (13 sources)Start: 81-89-7540ockv 1 tablet by mouth once dailyInulin (Fiber Gummies) 2 gram tablet,chewable Active 2 GM PO Daily December 31, 2023 12:00am Complies with drug wuiowol09 ml magnesium sulfate 40 mg/ml injection (1 [...] (20 sources)Thyroid Hormone Synthesis InhibitorStart: 07-15-2024 End: 71-00-9868uslh 1 tablet by mouth once dailymethIMAzole (Tapazole) 5 mg tablet Indications: Hyperthyroidism Take 1 tablet (5 mg) by mouth once daily. 90 tablet 1 03/29/2025 03/29/2026 ActiveStart: 07-15-2024 End: 09-98-4179eslz 1 tablet by mouth twice dailymethIMAzole (Tapazole) 5 mg tablet Indications: High risk medication use , Hyperthyroidism Take 1 tablet (5 mg) by mouth 2 times a day. 180 tablet 3 07/29/2024 03/29/2025 Discontinued (Dose adjustment)Start: 05-24-2024 End: 01-01-1510tbcf 2.5 mg by mouth in the morningmethIMAzole (Tapazole) 5 MG tablet Take 2.5 mg by mouth in the morning and 2.5 mg in the evening. 05/24/2024 08/03/2024 Discontinued (Dose adjustment)Start: 05-24-2024 End: 97-98-5914cugq 0.5 tablet by mouth twice dailymethIMAzole (Tapazole) 5 mg tablet Indications: High risk medication use , Hyperthyroidism Take 0.5tablets (2.5 mg) by mouth 2 times a day. 90 tablet 3 05/24/2024 07/29/2024 Discontinued (Reorder)metoprolol tartrate 25 mg oral tablet (20 sources)beta-Adrenergic BlockerStart: 04-91-0335nkcq 25 mg by mouth once dailymetoprolol 25 mg, Oral, Daily, Refills(s) 0 Start Date: 07/15/24 Status: Ordered Medication DispenseStatus: Completed Total Allowed Fills: 1 Fills Dispensed: 0Start: 05-21-2024 End: 98-20-2003jzis 1 tablet by mouth once dailymetoprolol succinate XL (Toprol- XL) 25 mg 24 hr tablet Indications: Cardiomyopathy, ischemic Take 1tablet (25 mg) by mouth once daily. Do not crush or chew. 90 tablet 3 05/21/2024 05/21/2025 ActiveStart: 05-21-2024 End: 63-87-0304oqhw 1 tablet by mouth every twenty-four hours in the morning metoprolol succinate XL (Toprol-XL) 25 MG 24 hr tablet Take 25 mg by mouth in the morning. 05/21/2024 05/21/2025 ActiveStart: 34-50-2367Wfvwiunyim tartrate 50 mg Tab Refills(s) 0 Start Date: 06/10/22 Status: OrderedStart: 05-16-2022 End: 55-06-7454bfzz 1 tablet by mouth twice dailyMetoprolol Tartrate 50 mg tablet Discontinued 50 MG PO Twice daily May 16, 2022 1:00am January 16, 2024 2:11pmMultiple Vitamins-Minerals (Multivitamin Gummies Mens) chewable tablet (20 sources)Multiple Vitamins-Minerals (Multivitamin Gummies Mens) chewable tablet Chew 1 tablet Daily Activemultivitamin (Multiple Vitamins) tablet (8 sources)take 1 tablet by mouth once dailymultivitamin (Multiple Vitamins) tablet Take 1 tablet by mouth once daily. ActiveMultivitamin preparation (20 sources)Start: 74-53-8993leyr 1 tablet by mouth once dailyMultivitamin Active 1 TAB PO Daily October 22, 2023 12:00amStart: 69-14-5126vvcpmmwfxlpn Daily, Refill(s) 0 Start Date: 07/31/22 Status: Ordered Medication Dispense Status: Compl eted Total Allowed Fills: 1 Fills Dispensed: 0Start: 80-30-2110ibmuxhitwbbd Daily, Refill(s) 0 Start Date: 07/31/22 Status: Ordered Repeat number: 1Start: 44-55-4247xkzddvsczotw Daily, Refill(s) 0 Start Date: 07/31/22 Status: Ordered Multivitamin ActiveMultivitamin tablet (7 sources)Start: 58-58-0412hmgr 1 tablet by mouth once dailyMultivitamin tablet Active 1 TAB PO Daily October 22, 2023 12:00am Complies with drug therapyStart: 77-04-2382cces 1 tablet by mouth once dailyMultivitamin tablet Active 1 TAB PO Daily October 22, 2023 12:00amnitroglycerin 0.4 mg sublingual tablet (20 sources)Nitrate VasodilatorStart: 52-10-2946gjvehyiodryjx (Nitrostat) 0.4 mg SL tablet Indications: Coronary artery disease involving [place] coronary artery of [place] heart without angina pectoris Place 1 tablet (0.4 mg) under the tongue every5 minutes if needed for chest pain. 25 tablet 11 03/29/2025 ActiveStart: 01-16-2024 End: 17-80-3801wiujsuzokqzds 0.4 mg sublingual Tab 0.4 mg = 1 tab(s), SubLingual, q5min, PRN for chest pain, # 100tab(s), Refills(s) 0 Start Date: 03/02/24 Status: Ordered Medication Dispense Status: Completed Quantity: 100.0 Unit: tab(s) Total Allowed Fills: 1 Fills Dispensed: 0ondansetron (ZOFRAN-ODT) disintegrating tablet 4 mg (1 source)Start: 14-33-8732iimsqyirbee (ZOFRAN-ODT) disintegrating tablet 4 mg24 hr oxybutynin chloride 10 mg extended release oral tablet (1 source)Cholinergic Muscarinic AntagonistStart: 19-19-5289unxg 1 tablet by mouth once dailyoxybutynin 10 mg ER Tab 10 mg = 1 tab(s), Oral, Daily, # 14 tab(s), Refills(s) 0, Pharmacy: [facility]/pharmacy #[id number], 187, cm, 06/10/23 13:43:00 EST, Height/Length Dosing, 93, kg, 03/11/23 13:44:00 EDT, Weight Dosing Start Date: 06/11/23 Status: Orderedmicroencapsulated potassium chloride 20 meq extended release oral tablet (20 sources)Start: 42-68-3666hmzu 1 tablet by mouth once dailyKlor-Con M20 20 mEq ER tablet Indications: Hypokalemia TAKE 1 TABLET BY MOUTH ONCE DAILY. DO NOT CRUSH OR CHEW. 90 tablet 3 01/28/2025 ActiveStart: 23-76-7944cgdmyacat chloride (KLOR-CON M) extended release tablet 40 mEqStart: 72-80-6416Syve-Con 20 mEq, Refills(s) 0 Start Date: 04/06/24 Status: Ordered Medication Dispense Status: Completed Total Allowed Fills: 1 Fills Dispensed: 0Start: 48-53-5433Vuxa-Con 20 mEq, Refills(s) 0 Start Date: 04/06/24 Status: Ordered Repeat number: 1Start: 67-47-1740Fzym-Con 20 mEq, Refills(s) 0 Start Date: 04/06/24 Status: Ordered Start: 10-14-2024 End: 72-65-8481Ypeejkzcv Chloride (Klor-Con M20) 20 mEq tablet,ER particles/crystals Discontinued 10 MEQ PO Daily August 11, 2024 10:30am November 03, 2024 4:02pmStart: 02-18-2024 End: 90-51-8279soeblmpzy chloride CR (Klor-Con M20) 20 MEQ ER tablet Take 20 mEq by mouth Daily 01/28/2025 ActivepredniSONE 10 mg oral tablet (3 sources)predniSONE 10 MG as directed Orally take 4 tablets daily x3 days, take 3 tablets for 3 days, 2 tablets for 3 days, 1 tablet for 3 days Active QUEtiapine 25 mg oral tablet (20 sources)Atypical AntipsychoticStart: 47-65-6622mgnx 1 tablet by mouth three times dailyquetiapine 25 mg Tab 25 mg = 1 tab(s), Oral, TID Start Date: 11/16/24 Status: Ordered Medication Dispense Status: Completed Total Allowed Fills: 1 Fills Dispensed: 0Start: 10-02-2024 End: 01-26-2809zuqf 1 tablet by mouth once dailyQuetiapine 25 mg tablet Active 25 MG PO Daily March 09, 2025 12:00am Complies with drug therapySpacer/Aero- Holding Chambers (BreatheRite Dulce Spacer Adult) misc (20 sources)Start: 12-86-9771Ldfnoq/Aero-Holding Chambers (BreatheRite Dulce Spacer Adult) misc Indications: Simple chronic bronchitis (HCC) 2 puffs 4 (four) times a day as needed (sob and cough) 1 each 02/17/2024 ActiveStart: 02-17-2024 Spacer/Aero-Holding Chambers (BreatheRite Dulce Spacer Adult) misc Indications: Simple chronic bronchitis (CMS/HCC) 2 puffs 4 (four) times a day as needed (sob and cough) 1 each 02/17/2024 Activeticagrelor 90 mg oral tablet (20 sources)Start: 51-83-0556vrha 1 tablet by mouth every twelve hoursBrilinta 90 MG tablet Take 90 mg by mouth every 12 (twelve) hours 01/16/2024 ActiveStart: 01-16-2024 End: 25-69-7674vmve 1 tablet by mouth twice dailyTicagrelor (Brilinta) 90 mg Tablet Discontinued 90 MG PO Twice daily 180 90 January 16, 2024 12:00am August 11, 2024 10:30amVitafusion Fiber Well + Probiotics Gummies oral tablet, chewable (13 sources)Start: 44-62-9407kepi 1 tablet by mouth once dailyVitafusion Fiber Well + Probiotics Gummies oral tablet, chewable tab(s), Oral, Daily, Refill(s) 0 Start Date: 03/02/24 Status: Ordered Repeat number: 1Start: 76-74-5443zqzp 1 tablet by mouth once dailyVitafusion Fiber Well + Probiotics Gummies oral tablet, chewable tab(s), Oral, Daily, Refill(s) 0 Start Date: 03/02/24 Status: Orderedwarfarin sodium 2 mg oral tablet (20 sources)Vitamin K AntagonistStart: 01-68-0951tzen 1-2 tablets by mouth once dailywarfarin (Coumadin) 2 mg tablet TAKE 1 TO 2 TABLETS BY MOUTH DAILY DIRECTED BY MEDICATION MANAGEMENT CLINIC 03/20/2025 ActiveStart: 10-05-2024 End: mg, Oral, ONCE Warfarin, 1 [...] Hazardous med- See facility policy for handling/disposalStart: 12-26-5445jiep 0.5 tablet by mouth once dailywarfarin (COUMADIN) 2 MG tablet Take 0.5 tablets by mouth daily 04/21/2024 ActiveStart: 88-90-8802eptemgut 2 mg Tab 2 mg = 1 tab(s), Refills(s) 0 Start Date: 04/06/24 Status: Ordered Medication Dispense Status: Completed Total Allowed Fills: 1 Fills Dispensed: 0Start: 20-08-1598qhgtwazt 2 mg Tab 2 mg = 1 tab(s), Refills(s) 0 Start Date: 04/06/24 Status: OrderedStart: 03-05-2024 End: 53-72-4713qanmicuj (Coumadin) 5 mg tablet Indications: Paroxysmal atrial fibrillation (Multi) Take one tabletdaily in the evening. Follow with [facility]. Patient will take coumadin and eliquis together for 3 days only 14 tablet 03/05/2024 Activewarfarin placeholder: dosing by pharmacy (1 source)Start: 97-29-3897Eelxzf contact the pharmacy if a dose is not entered by 1600. Review INR prior to warfarin administration.water 1000 mg/ml irrigation solution (9 sources)Start: 21-13-9966pbbhdau water irrigation solution Refill(s) 0 Start Date: 04/06/24 Status: OrderedStart: 91-54-7909ngvszjw water irrigation solution See Instructions, 500 mL, Refill(s) 1, Irrigate zapien catheter asneeded with 60 cc sterile water, [id number], 187, cm, 10/03/23 14:11:00 EDT, Height/Length Dosing, 93, kg, 10/03/23 14:11:00 EDT, Weight Dosing Start Date: 10/03/23 Status: Ordered Completed/Discontinued Medications MedicationDrug Class(es)DatesSig (Normalized)Sig (Original)ARIPiprazole 5 mg oral tablet (20 sources)Atypical AntipsychoticStart: 11-03-2024 End: 77-41-3982nojs 1 tablet by mouth once dailyAripiprazole 5 mg tablet Discontinued 5 MG PO Daily November 03, 2024 12:00am March 09, 2025 2:28pm Start: 10-15-2024 End: 09-97-9886iiix 2.5 mg by mouth at bedtimeARIPiprazole (Abilify) 5 MG tablet Take 2.5 mg by mouth at bedtime 10/15/2024 11/09/2024 Discontinued (Med list cleanup)Start: 09-23-2024 End: 22-59-6676Avvpqnqulgqq 2 mg tablet Discontinued 2 MG PO September 23, 2024 12:00am October 11, 2024 12:28pmStart: 09-21-2024 End: 62-41-6643hbfu 0.5 tablet by mouth at bedtimeARIPiprazole (Abilify) 2 MG tablet Indications: Hallucinations Take 0.5 tablets (1 mg) by mouth at bedtime 15 tablet 09/21/2024 10/19/2024 Discontinued (Discontinued by another clinician) aspirin 81 mg delayed release oral tablet (20 sources)Platelet Aggregation Inhibitor, Nonsteroidal Anti-inflammatory Drug Start: 10-22-2023 End: 17-85-5657Ieinxdx (Adult Low Dose Aspirin) 81 mg tablet,delayed release (DR/EC) Discontinued 81 MG PO Daily October 22, 2023 12:00am January 23, 2024 2:59pmStart: 40-00-4416gxdx 1 tablet by mouth once dailyAspirin 81 MG Oral Tablet Delayed Release TAKE 1 TABLET DAILY. Quantity: 90 Refills: 3 Ordered: 22-Jan-2023 Teo Al MD Start : 22-Jan-2023 ActiveStart: 05-16-2022 End: 73-35-9081ngwd 1 tablet by mouth once dailyAspirin 81 mg Tablet Discontinued 81 MG PO Daily May 16, 2022 1:00am June 21, 2022 11:01 am On Hold: Resume on 06/26/22. Hold this until after your abdominal aortic aneurysm is treated.azithromycin (ZITHROMAX) 500 mg in sodium chloride 0.9 % 250 mL IVPB (Wimm9Qye) (1 source)Start: 10-02-2024 End: 42-67-0720197 mg, IntraVENous, EVERY 24 HOURS, 2 doses, First dose on 10/02/24 at 1200, Last dose on 10/03/24 at 1200, Antimicrobial Indications: Pneumonia (CAP), CAP duration of therapy: 3 days, Use 20mm (Blue) Glfs2Uox Adapter Preparation instructions: Attach medication vial to one 20mm (Blue) Tfoe8Vwf adapter. James fluid bag with adapter, mix, and administer per order. benzonatate 100 mg oral capsule (10 sources)Non-narcotic AntitussiveStart: 03-08-2024 End: 59-39-6482mzop 1 capsule by mouth three times dailyBenzonatate 100 mg capsule Discontinued 100 MG PO Three times daily 13 12March 08, 2024 12:00am August 11, 2024 10:30amcefTRIAXone (ROCEPHIN) 1,000 mg in sterile water 10 mL IV syringe (1 source)Start: 10-02-2024 End: 28-86-7645eazz 100 mg intravenously every twenty-four hours1,000 mg, IntraVENous, EVERY 24 HOURS, First dose on 10/02/24 at 1200, For 4 days, Administer asslow IV Push over 5 mins Reconstitute 1 g vials with 9.6 mL of designated diluent to produce a 100 mg/mL solution.cefuroxime 500 mg oral tablet (2 sources)Cephalosporin AntibacterialStart: 02-17-2024 End: 15-75-9285kaqh 1 tablet by mouth in the morningcefuroxime (Ceftin) 500 MG tablet Indications: Pneumonia of left lower lobe due to infectious organism Take 1 tablet (500 mg) by mouth in the morning and 1 tablet (500 mg) before bedtime. Do all thisfor 7 days. 14 tablet 02/17/2024 02/25/2024 Discontinued (Therapy completed)ciprofloxacin 250 mg oral tablet (11 sources)Quinolone AntimicrobialStart: 10-05-2024 End: 62-78-6685xuoe 1 tablet by mouth every twelve hoursciprofloxacin (CIPRO) 250 MG tablet Take 1 tablet by mouth every 12 hours for 9 doses 9 tablet 10/0510/05/2024 Discontinued (Stop Taking at Discharge)Start: 10-05-2024 End: 57-77-1608958 mg, Oral, EVERY 12 HOURS SCHEDULED (2 [...] do not give by J tube. Start: 22-07-0748ignb 1 tablet by mouth once dailyCipro 500 mg Tab = 1 tab(s), Oral, Daily, Refills(s) 0 Start Date: 04/06/24 Status: OrderedStart: 12-03-2022 take 1 tablet by mouth once dailyCipro 250 mg Tab 250 mg = 1 tab(s), Oral, Daily, Take 1 tablet the day before the procedure and 1 tablet after the procedure, # 6 tab(s), Refills(s) 0, Pharmacy: [id number], 187, cm, 09/18/2313:39:00 EDT, Height/Length Dosing, 93, kg, 09/18/22 14:39:00 EDT, Weight Dosing Start Date: 12/03/22 Status: OrderedStart: 57-47-1474clbr 1 tablet by mouth once dailyCipro 250 mg Tab 250 mg = 1 tab(s), Oral, Daily, Take 1 tablet the day before the procedure and 1 tablet after the procedure, # 2 tab(s), Refills(s) 0, Pharmacy: [facility]/pharm[id number], 187, cm, 239:11:00 EST, Height/Length Dosing, 93.5, kg, 06/11/22 9:11:00 EST, W... Start Date: 07/25/22 Status: Orderedfolic acid 1 mg oral tablet (20 sources)Start: 68-95-9398jelcf acid 1 mg Tab Refills(s) 0 Start Date: 06/10/22 Status: OrderedStart: 05-22-2022 End: 23-80-6788Pucsc Acid 1 mg tablet Discontinued 1000 MCG PO Daily at bedtime June 21, 2022 11:02am October 22, 2023 11:05amStart: 05-22-2022 End: 21-67-1118ldmm 1000 ug by mouth once daily at bedtimeFolic Acid Discontinued 1000 MCG PO Daily at bedtime June 21, 2022 11:02am October 22, 2023 11:05am10 ml iron sucrose 20 mg/ml injection (7 sources)Parenteral Iron ReplacementStart: 10-25-2024 End: 87-81-0798Dclg Sucrose (Venofer) 200 mg iron/10 mL solution Discontinued 200 MG IV Q3D October 25, 2024 12:00amJun2024 9:27am administer over 30 minsStart: 10-21-2024 End: 31-37-5298Piia Sucrose (Venofer) 200 mg iron/10 mL solution Discontinued 200 MG IV every week 50 October 25, 2024 2:24pm October 25, 2024 2:27pm administer over 2-5 minsStart: 10-04-2024 End: 96-61-6030360 mg, IntraVENous, ONCE, On 10/04/24 at 0900, For 1 dose, May [...] stable.melatonin 3 mg oral tablet (1 source)Start: 29-09-5040ieii 3 mg by mouth once daily as needed3 mg, Oral, NIGHTLY PRN, Starting on 10/04/24 at 1903, Until Discontinued, SleepMulti Vitamin Oral Tablet (1 source)take 1 tablet by mouth once dailyMulti Vitamin Oral Tablet TAKE 1 TABLET DAILY. Quantity: 0 Refills: 0 Ordered: 22-Jan-2023 DO Activepolyethylene glycol 3350 88856 mg powder for oral solution (1 source)Osmotic LaxativeStart: 98-13-269321 g, Oral, DAILY PRN, Starting on 10/02/24 at 1050, Until Discontinued, Constipation, First line therapy for constipationPotassium Chloride (Klor-Con M20) 20 mEq tablet,ER particles/crystals (8 sources)Start: 03-08-2024 End: 64-81-9930Aqtlddmgx Chloride (Klor-Con M20) 20 mEq tablet,ER particles/crystals Discontinued MEQ PO March 08, 2024 12:00am August 11, 2024 10:33amStart: 75-01-2164Gsmhhlauu Chloride (Klor-Con M20) 20 mEq tablet,ER particles/crystals Active MEQ PO March 08, 2024 12:00am24 hr rivastigmine 0.192 mg/hr transdermal system (9 sources)Start: 10-11-2024 End: 07-99-8296wyszd 1 dose transdermal route every hour, then apply 1 dose transdermal route every twenty-four hoursRivastigmine (Exelon Patch) 4.6 mg/24 hour patch 24 hour Discontinued 4.6 MG TRANSDERML Daily October 11, 2024 12:00am March 09, 2025 2:29pmStart: 10-04-2024 End: 27-25-5564iumsn 1 dose transdermal route once dailyrivastigmine (Exelon) 4.6 mg/[address] 1 patch on the skin once daily. 10/06/2024 03/29/2025 Dis continued (Discontinued by another clinician)simvastatin 20 mg oral tablet (20 sources)HMG-CoA Reductase InhibitorStart: 05-16-2022 End: 30-43-5339weqf 1 tablet by mouth at bedtimeSimvastatin 20 mg tablet Discontinued 20 MG PO Bedtime May 16, 2022 1:00am January 1542:11pm 1000 ml sodium chloride 9 mg/ml injection (4 sources)Start: 10-02-2024 End: 91-09-6225BurnuZMOnng, at 100 mL/hr, CONTINUOUS, Starting on 10/02/24 at 1130, For 12 hoursStart: 47-45-8063ImjijPPWdyp, at 5-250 mL/hr, PRN, if patient receiving [...] 20 mL/lumenSpacer/Aero-Holding Chambers device (13 sources) End: 51-27-6398Rxltyf/Aero-Holding Chambers device every 8 (eight) hours. 05/13/2024 Discontinued (Therapy completed)Spacer/Aero-Holding Chambers device every 8 (eight) hours. Activespironolactone 25 mg oral tablet (19 sources)Aldosterone AntagonistStart: 10-03-2023 End: 20-30-2263crnr 1 tablet by mouth once dailySpironolactone 25 mg tablet Discontinued 25 MG PO Daily October 22, 2023 12:00am January 23, 2024 2:59pm sulfamethoxazole 800 mg / trimethoprim 160 mg oral tablet (4 sources)Dihydrofolate Reductase Inhibitor Antibacterial, Sulfonamide AntimicrobialStart: 10-05-2024 End: 85-47-9233ngvo 1 tablet by mouth once dailySulfamethoxazole-Trimethoprim 800-160 mg tablet Discontinued 1 TAB PO Daily October 11, 2024 12:00am November 03, 2024 4:02pmvitamin b12 1 mg oral capsule (20 sources)Vitamin A97Fimbw: 05-22-2022 End: 76-77-2569kofo 1 capsule by mouth once daily at [...] involving other coronary artery of anterior wall]Onset: 188848-88-8915EqtwelhYjhhjo; peripheral; and visceral artery aneurysms (20 sources)Abdominal aortic aneurysm; Translations: [Abdominal aneurysm without mention of rupture]Onset: 04-40-1052FsqaoftLqbxkti on above:Problem List clean- up per request of Phys. EHR CmteAttention-deficit, conduct, and disruptive behavior disorders (1 source)Other symptoms and signs involving appearance and behavior; Translations: [Other symptoms and signsinvolving appearance and behavior]Onset: 34-21-2595YqpypsfbJmxqbork of urinary tract (20 sources)Urinary bladder stone; Translations: [Calculus in bladder]Onset: 16-99-3848WabnainfCzowbn of bladder (20 sources)Malignant tumor of urinary bladder; Translations: [Malignant neoplasm of bladder, unspecified]Onset: 52-52-3015HhpclgzDssjbl of bladder (20 sources)History of malignant neoplasm of bladder; Translations: [Personal history of malignant neoplasm of bladder]Onset: 12-10-2022 Resolved: 50-61-3226PhatbcotEgpfzz; other and unspecified primary (20 sources)H/O: malignant cycibkqv41-16-8117XpingjkuDuttqvl dysrhythmias (20 sources)Atrial fibrillation; Translations: [Unspecified atrial fibrillation] Onset: 11-11-2022 Resolved: 819232-65-1410SswlvudCvrxdbr kidney disease (20 sources)Chronic kidney disease stage 3B ; Translations: [Chronic kidney disease, stage 3b]Onset: 812971-37-2573BhiymemKdcfxpq kidney disease (8 sources)Chronic kidney disease; Translations: [CHRONIC KIDNEY DISEASE STAGE 3B]Onset: 22-25-0822Aahfypq obstructive pulmonary disease and bronchiectasis (20 sources)Pulmonary emphysema; Translations: [Simple chronic bronchitis]Onset: 469152-71-2643MzgxebhKqxxgcdfzhqc of device; implant or graft (5 sources)Other mechanical complication of indwelling urethral catheter, initial encounter; Translations: [Mechanical complication of genitourinary device]Onset: 24-68-2810SqdgpfveLdbolualqx heart failure; nonhypertensive (20 sources)Chronic systolic heart failure; Translations: [Chronic systolic (congestive) heart failure]Onset: 897159-09-3420DatozyjZwujsoaj atherosclerosis and other heart disease (20 sources)Ischemic myocardial dysfunction; Translations: [Ischemic cardiomyopathy]Onset: 669217-61-2181VqaidowAuydlccw atherosclerosis and other heart disease (20 sources)Stented coronary artery; Translations: [Presence of coronary angioplasty implant and graft]Onset: 01-16-2024 Resolved: 829207-92-7492FcmjerurQcpdssbtww and other anemia (20 sources)Anemia co-occurrent and due to chronic kidney disease stage 3; Translations: [Anemia due to stage 3b chronic kidney disease (HCC)]Onset: 752379-57-8525GxzqgorTzygulgjrq and other anemia (15 sources)Anemia; Translations: [Anemia, unspecified]17-46-5133Iwkedqsb Deficiency and other anemia (13 sources)Anemia, unspecified; Translations: [Anemia, unspecified]10-22-2023 EpisodicDelirium, dementia, and amnestic and other cognitive disorders (20 sources)Dementia; Translations: [Unspecified dementia without behavioral disturbance]Onset: 06-11-2022 Resolved: 56-99-4616EgrwswpDpkofoene of lipid metabolism (20 sources)Dyslipidemia; Translations: [Other and unspecified hyperlipidemia] Onset: 73-53-2543NlxewvoKjgftbwfq hypertension (20 sources)Hypertensive disorder; Translations: [Unspecified essential hypertension]Onset: 681361-86-4776MafluzsBfkedtxxuvrcg symptoms and ill- defined conditions (2 sources)Urinary catheter in situ; Translations: [Presence of urogenital implants]64-42-2197TshsjdbTfndebmjmgetv symptoms and ill-defined conditions (20 sources)Retention of urine; Translations: [Retention of urine, unspecified] Onset: 06-10-2022 Resolved: 69-81-2018SjdkfwnwFozcqsniofc of prostate (20 sources)Benign prostatic hypertrophy with outflow obstruction; Translations: [Benign prostatic hyperplasia with lower urinary tract symptoms]Onset: 65-67-1005YtxwbiwCfpqyavbbbld with complications and secondary hypertension (20 sources)Hypertensive chronic kidney disease with stage 1 through stage 4 chronic kidney disease, or unspecified chronic kidney disease; Translations: [Hypertensive renal disease]Onset: 02-22-2016 Resolved: 495164-40-0091XbrhhmaHkql effects of cerebrovascular disease (1 source)Other sequelae following unspecified cerebrovascular disease; Translations: [OTH SEQUELAE UNS CEREBROVASCULAR DZ]Onset: 30-88-8669Natkoam Occlusion or stenosis of precerebral arteries (20 sources)Atherosclerosis of right carotid artery; Translations: [Occlusion and stenosis of right carotid artery]Onset: 968198-79-8863KbzwnnvKjohj aftercare (3 sources)Other tank terminal gauger (current) drug therapy; Translations: [OTH MCFP CURRENT DRUG THERAPY]Onset: 01-70-4048CoqucswiGsbcy aftercare (2 sources)FDC (current) use of anticoagulants; Translations: [VISUAL EDUCATION TEACHER CURRNT USE ANTICOAGULANTS]Onset: 62-91-6381FmtvczqyAwmjs aftercare (19 sources)Taking high risk medication; Translations: [Other intermediate (current) drug therapy]Onset: 152785-85-4942BlvszfetQbdod aftercare (1 source)Long-term current use of anticoagulant; Translations: [terminal manager (current) use of anticoagulants]Onset: 41-06-5378FarqznrcGolek aftercare (5 sources)Patient encounter status; Translations: [Encounter for palliative care]Onset: 269785-38-3825MayrygeqTxjft and ill-defined cerebrovascular disease (20 sources)Cerebral ischemiaOnset: 800666-12-6893UeubscgKqkrq circulatory disease (1 source)Stented artery; Translations: [Presence of other vascular implants and grafts]38-76-1773BnvkgrkIpmpm circulatory disease (1 source)Personal history of transient ischemic attack (TIA), and cerebral infarction without residual deficits; Translations: [PERS HX TIA AND CI NO RESID DEFICIT]Onset: 39-70-9671UoootiaeBkeoo circulatory disease (11 sources)Low blood pressure; Translations: [Hypotension, unspecified] 47-60-7228AokfkzafTrqks diseases of bladder and urethra (2 sources)Disorder of bladder; Translations: [Other specified disorders of bladder]Onset: 74-19-4654OctxlieAgyym diseases of bladder and urethra (20 sources)Mass of urinary bladder; Translations: [Other specified disorders of bladder]89-65-7104NjpddxbTiqvyby on above:Problem List clean-up per request of Phys. EHR CmteOther diseases of bladder and urethra (4 sources)Other specified disorders of bladder; Translations: [Other specified disorders of bladder]44-05-3324DkkfutsMxedw diseases of bladder and urethra (20 sources)Lesion of qpolten13-69-8366XgnzpjlCahnf diseases of bladder and urethra (1 source)Diverticulum of bladder; Translations: [DIVERTICULUM OF BLADDER]Onset: 36-67-5456JdkfjfkChnit diseases of bladder and urethra (1 source)Bladder disorder, unspecified; Translations: [BLADDER DISORDER UNSPECIFIED]Onset: 73-11-5518OskmdbfFsrmc diseases of kidney and ureters (20 sources)Hydroureter; Translations: [Hydroureter]Onset: 14-36-7100Ocldbovq Other diseases of kidney and ureters (2 sources)Disorder of kidney and/or ureter; Translations: [Disorder of kidney and ureter, unspecified]Onset: 40-64-4374QkdhfdmgSojjz diseases of kidney and ureters (20 sources)Nkwfahgmgtqehc47-45-4296GejevedcKxxam diseases of kidney and ureters (20 sources)Kidney ivfcsz09-28-9211CbmkbjucTkynv diseases of kidney and ureters (7 sources)Unspecified hydronephrosis; Translations: [Hydronephrosis]Onset: 519725-71-4487MltvibbaPztfl diseases of kidney and ureters (1 source)Urinary tract obstruction; Translations: [Other obstructive and reflux uropathy]Onset: 24-27-7281OumevkauPuxut diseases of kidney and ureters (15 sources)Obstructive nephropathy; Translations: [Other obstructive and reflux uropathy]20-42-4958AdofvpnbAdfcu diseases of kidney and ureters (13 sources)Other obstructive and reflux uropathy; Translations: [Other specified disorders of kidney and ureter]63-83-1996ZckpwlegGuony diseases of veins and lymphatics (1 source)Venous insufficiency (chronic) (peripheral); Translations: [VENOUS INSUFF CHRONIC PERIPHERAL]Onset: 81-86-8635NqconprzEfjtk diseases of veins and lymphatics (2 sources)Disorder of vein of lower extremity; Translations: [Venous insufficiency (chronic) (peripheral)]68-97-3791OrvkmbkeLgddu ear and sense organ disorders (20 sources)Hearing difficulty; Translations: [Unspecified hearing loss, bilateral]Onset: 133884-98-4910RujrasrRpudj ear and sense organ disorders (20 sources)Hearing loss; Translations: [Unspecified hearing loss, unspecified ear]Onset: 753915-92-0245RyxqzcvXcnig ear and sense organ disorders (2 sources)Mixed conductive and sensorineural hearing loss, bilateral; Translations: [Mixed conductive and sensorineural hearing loss, bilateral] 58-01-2046MxcpefrYtfqz gastrointestinal disorders (20 sources)Diarrhea; Translations: [Diarrhea, unspecified]33-00-7864Cgobnayo Comment on above:Problem List clean-up per request of Phys. EHR CmteOther gastrointestinal disorders (11 sources)Colonic lesion; Translations: [Disease of intestine, unspecified] 32-95-6143FijqzuhsBxdrb injuries and conditions due to external causes (13 sources)Foreign body in bladder; Translations: [Foreign body in bladder, initial encounter]Onset: 49-57-2727GeonasujBewhg nervous system disorders (20 sources)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; Translations: [Circadian rhythm sleep disorder, unspecified type]Onset: 228635-74-9373Sskmymg Comment on above:Problem List clean-up per request of Phys. EHR CmteOther nervous system disorders (20 sources)Metabolic encephalopathy; Translations: [Metabolic encephalopathy] Onset: 538053-43-2090VilyfcfJteqzoj on above:Problem List clean-up per request of Phys. EHR CmteOther nervous system disorders (4 sources)Metabolic encephalopathy; Translations: [Metabolic encephalopathy] 01-31-7555KzlcdmtVoupi nervous system disorders (9 sources)Circadian rhythm sleep disorder, unspecified type; Translations: [Disruption of 24 hour sleep wake cycle, unspecified]Onset: 627403-69-5786 ChronicOther nervous system disorders (11 sources)Abnormal circadian rhythm; Translations: [Circadian rhythm sleep disorder, unspecified type]41-13-2571DtrnscfLjlhg nervous system disorders (1 source)Unspecified disturbances of skin sensation; Translations: [UNS DISTURBANCES OF SKIN SENSATION]Onset: 30-22-9510UjsqmhhxMbzni nervous system disorders (2 sources)Impaired cognition; Translations: [Other symptoms and signs involving cognitive functions and awareness]15-64-4500IcpmtxjyYbwsg nervous system disorders (1 source)Other symptoms and signs involving cognitive functions and awareness; Translations: [Other symptomsand signs involving cognitive functions and awareness]Onset: 72-05-6594LaxmqzjlJxppy nutritional; endocrine; and metabolic disorders (1 source)Other obesity due to excess calories; Translations: [OTHER OBESITY D/T EXCESS CALORIES]Onset: 76-59-6828EsimqtbOgwxn nutritional; endocrine; and metabolic disorders (19 sources)Overweight in adulthood with body mass index of 25 or more but less than 30; Translations: [Overweight]Onset: 02-10-2024 Resolved: 413464-05-4821MpmfqxpnVmter nutritional; endocrine; and metabolic disorders (2 sources)Body mass index (BMI) 25.0-25.9, adult; Translations: [Body mass index (BMI) 25.0-25.9, adult]Onset: 73-26-3708FzonbkbcWchgdjolcu and visceral atherosclerosis (1 source)Peripheral vascular disease; Translations: [Peripheral vascular disease, unspecified]14-65-0572XuolknpRddnjddx codes; unclassified (20 sources)Tobacco user; Translations: [Tobacco use]84-53-0427DageynneRubqdbs on above:quit aprilroblem List clean-up per request of Phys. EHR CmteResidual codes; unclassified (4 sources)Tobacco use; Translations: [Tobacco use disorder]64-28-3965Spexfssa Residual codes; unclassified (14 sources)History of cardiovascular surgery; Translations: [Other specified postprocedural states]44-52-6217AhpiacbrTmclezib codes; unclassified (12 sources)Delirium; Translations: [Disorientation, unspecified]01-23-2024 EpisodicResidual codes; unclassified (3 sources)Prevention status; Translations: [Need for prophylaxis against urinary tract infection]38-77-7793BdwwodwcXjbkekrc codes; unclassified (2 sources)Hallucinations; Translations: [Hallucinations, unspecified]09-21-2024 EpisodicResidual codes; unclassified (1 source)Localized edema; Translations: [Localized edema]Onset: 10-02-2024 EpisodicScreening and history of mental health and substance abuse codes (20 sources)Ex-smoker; Translations: [Personal history of tobacco use]Onset: 988614-49-3822NkipsiewHnnjrno on above:05/17/23 quit;Thyroid disorders (5 sources)Hyperthyroidism; Translations: [Thyrotoxicosis, unspecified without thyrotoxic crisis or storm]Onset: 270987-35-8708RxgblryNadsjpawn cerebral ischemia (20 sources)Transient cerebral ischemia; Translations: [Unspecified transient cerebral ischemia]Onset: 084620-57-5393KlqaluvBtkfkyw on above:Problem List clean-up per request of Phys. EHR CmteUnclassified (1 source)ABDOMINAL AA W/O RUPTURE UNSPCIFIED; Translations: [ABDOMINAL AA W/O RUPTURE UNSPCIFIED]Onset: 04-13-8905Fwihayqiopog (1 source)CONTACT W/AND (SUSP) EXPOS COVID-19; Translations: [CONTACT W/AND (SUSP) EXPOS COVID-19]Onset: 47-82-7610Ochvauolxgzl (10 sources)Drug therapy tenpsyk15-33-7337Mgsiejnzxwtz (2 sources)Abdominal aortic aneurysm, without rupture, unspecified; Translations: [Abdominal aortic aneurysm, without rupture, unspecified]Onset: 05-56-5907Thbdxtmluzos (1 source)Abdominal aortic aneurysm, without rupture, unspecified (CMS-HCC); Translations: [Abdominal aortic aneurysm, without rupture, unspecified (CMS-HCC)]Onset: 07-48-6311Kvargovgvxas (1 source)Long-term current use of drug zoclgaa67-67-3649Ndqxoez tract infections (20 sources)Urinary tract infectious disease; Translations: [Urinary tract infection, site not specified]Onset: 250755-20-1981UinuqsmfUgtrnqz on above:Problem List clean-up per request of Phys. EHR CmteViral infection (4 sources)COVID-19; Translations: [COVID-19]Onset: 01-04-2022 Past or Other Problems Problem ClassificationProblemDateDocumented DateEpisodic/ChronicAcute and unspecified renal failure (20 sources)Acute renal failure syndrome; Translations: [Acute kidney failure, unspecified]Onset: 05-16-2022 Resolved: 88-53-4970RwyogkwbSpbeyfp on above:Problem List clean-up per request of Phys. EHR CmteAdministrative/social admission (20 sources)Other reduced mobility; Translations: [Impaired mobility and activities of daily living]Onset: 729608-18-8505RaljzhufZgxwz and electrolyte disorders (20 sources)Hyperkalemia; Translations: [Metabolic acidosis]Onset: 05-16-2022 Resolved: 699306-45-7709TlwjsnoiIaqahyd on above:Problem List clean-up per request of Phys. EHR CmteMalaise and fatigue (4 sources)Other fatigue; Translations: [OTHER FATIGUE]Onset: 13-29-5315Mzljnbab Mood disorders (20 sources)Mood disordersOnset: 05-12-2023 Resolved: Nausea and vomiting (1 source)Vomiting, unspecified; Translations: [VOMITING UNSPECIFIED]Onset: 68-23-2564BqkwbjbbLwbcietql of unspecified nature or uncertain behavior (20 sources)Neoplasm of unspecified behavior of bladder; Translations: [Neoplasm of bladder]Onset: 68-96-7460ZkgmjztvFnhnkxrmlnf deficiencies (20 sources)Cobalamin deficiency; Translations: [Deficiency of other specified B group vitamins]Onset: 245652-19-4397WzkrualuJfmdkfl on above:Problem List clean-up per request of Phys. EHR CmteOther aftercare (1 source)FDC (current) use of aspirin; Translations: [MCFP 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]Onset: 00-56-2940WgkouquzGcaeq aftercare (20 sources)Polypharmacy ; Translations: [Other tank terminal gauger (current) drug therapy]Onset: 163100-03-7112DvyvsfuuZeooe circulatory disease (2 sources)Personal history of other diseases of the circulatory system; Translations: [Personal history of other diseases of the circulatory system] Onset: 64-51-7880LgwcfkhjRttso circulatory disease (5 sources)Hypotension, unspecified; Translations: [Hypotension, unspecified] Onset: 249832-21-6860CmnsyedgDxtpx circulatory disease (20 sources)H/O: cardiovascular disease; Translations: [Personal history of other diseases of the circulatory system]Onset: 02-22-2016 Resolved: 917342-99-8226ApilyjkqJnbdl circulatory disease (3 sources)Other specified symptoms and signs involving the circulatory and respiratory systems; Translations:[Other symptoms involving respiratory system and chest]Onset: 231182-38-1998UsmeunewRojwc diseases of kidney and ureters (20 sources)Bilateral hydronephrosis ; Translations: [Unspecified hydronephrosis]Onset: 393224-21-1191TkgthcaiNbrys diseases of veins and lymphatics (20 sources)Venous insufficiency of leg; Translations: [Venous insufficiency (chronic) (peripheral)]Onset: 948196-34-1987IhelqytfIqodg gastrointestinal disorders (5 sources)Diarrhea, unspecified; Translations: [Diarrhea]Onset: 05-23-2022 30-42-8693DqxuisfhYugzj nervous system disorders (20 sources)White matter disease; Translations: [White matter disease, unspecified]Onset: 366872-62-5041BxewvchkQdvgi nutritional; endocrine; and metabolic disorders (3 sources)Body mass index (BMI) 26.0-26.9, adult; Translations: [BODY MASS INDEX BMI 26.0-26.9 ADULT]Onset: 47-66-7345FfhzbxpvEimsp nutritional; endocrine; and metabolic disorders (1 source)Anorexia; Translations: [ANOREXIA]Onset: 16-97-1467HswkxyjqTspsl nutritional; endocrine; and metabolic disorders (1 source)Abnormal weight loss; Translations: [ABNORMAL WEIGHT LOSS]Onset: 00-50-1003VxxroxkoWaxvb nutritional; endocrine; and metabolic disorders (20 sources)Overweight; Translations: [Overweight]Onset: 219702-46-0694 EpisodicOther screening for suspected conditions (not mental disorders or infectious disease) (7 sources)Other specified abnormal findings of blood chemistry; Translations: [Prolonged QT interval]Onset: 37-55-1531GjuvxzinIndobtlgs (except that caused by tuberculosis or sexually transmitted disease) (20 sources)Left lower zone pneumonia; Translations: [Pneumonia, unspecified organism]Onset: 184694-09-7582DtzutdhhFaukwnik codes; unclassified (8 sources)Other specified postprocedural states; Translations: [Other postprocedural status]Onset: 30-06-6194JihpjtkxAgmrmnvp codes; unclassified (1 source)Chills (without fever); Translations: [CHILLS WITHOUT FEVER]Onset: 83-10-4453TgauduscKfobvvhr codes; unclassified (5 sources)Disorientation, unspecified; Translations: [Other alteration of consciousness]Onset: 089765-81-2336SsufwulrWqcinozo codes; unclassified (20 sources)Edema of lower extremity; Translations: [Localized edema]Onset: 210034-93-4527OdxdapgvMmarzyok codes; unclassified (1 source)Other specified health status; Translations: [Other specified health status]Onset: 89-48-2383SkmwaizpIpgtudoxa-related disorders (20 sources)Nicotine dependence, cigarettes, uncomplicated; Translations: [Smoker]Onset: 02-23-2015 Resolved: 991181-25-4405PllseizGugkonv on above:1/2 dozen cigarettes; Unclassified (3 sources)Abdominal aortic aneurysm (AAA) without rupture, unspecified part I71.40Unclassified (3 sources)Infrarenal abdominal aortic aneurysm (AAA) without rupture I71.43 Unclassified (20 sources)Onset: 02-10-2024 Resolved: 208307-71-5785Uuykpqnsapch (1 source)Abdominal aortic aneurysm, without rupture, unspecified; Translations: [Abdominal aortic aneurysm, without rupture, unspecified]Onset: 09-10-2024 Unclassified (1 source)Abdominal aortic aneurysm, without rupture, unspecified (CMS-HCC); Translations: [Abdominal aortic aneurysm, without rupture, unspecified (CMS-HCC)]Onset: 05-21-2024 Results Test NameValueInterpretationReference RangeFacilityC Urineon 86-39-5877Srfgypan identified Cx Nom (U)Microbiology PROCEDURE: Urine Culture [R1] SOURCE: U Cath BODY SITE: COLLECTED DATE/TIME: 03/31/2025 16:22 EST RECEIVED DATE/TIME: 04/01/2025 18:33 EST START DATE/TIME: 04/01/2025 18:34 EST FREE TEXT SOURCE: cath Orzech AQUATIC LABORER, SIXTH GRADE TEACHER-C, Orzech AQUATIC LABORER, SIXTH GRADE TEACHER-C, Blanca X Blanca X FINAL REPORTS Final Report [] Verified Date/Time: 04/04/2025 12:02 EST >100,000 cfu/ml Enterobacter cloacae >100,000 cfu/ml Enterobacter cloacae #2 Different Biotype. 10,000 cfu/ml Pseudomonas aeruginosa SUSCEPTIBILITY RESULTS LEGEND: S=Susceptible, N/R=Not Reported, Blank=Data not available, or drug not advisable or tested, I=Intermediate, ESBL=Extended spectrum beta-lactamase, R=Resistant, TFG=Thymidine-dependent strain, KEILA=Beta-lactamase positive, RITESH=mcg/m;(mg/L), S*=Predicted susceptible interp, R*=Predicted resistant interp Entclo Entclo #2 PA Antibiotic RITESH Dilutn RITESH Interp RITESH Dilutn RITESH Interp RITESH Dilutn RITESH Interp Ampicillin >16 R >16 R Ampicillin/ >16/8 R >16/8 R Sulbactam Cefazolin >16 R >16 R Cefepime <=2 S >16 R 4 S Ceftazidime 4 S Ceftazidime/ <=8 S <=8 S <=8 S Avibactam Ceftriaxone >2 R >2 R Cefuroxime >16 R >16 R Ciprofloxacin <=0.25 S <=0.25 S <=0.25 S Ertapenem <=0.5 S <=0.5 S Gentamicin <=2 S <=2 S Levofloxacin <=0.5 S <=0.5 S 1 S Meropenem <=1 S <=1 S <=1 S Nitrofurantoin 64 I 64 I Piperacillin/ <=8 S >64 R <=8 S Tazobactam Tetracycline <=4 S <=4 S Tobramycin <=2 S <=2 S <=2 S Trimethoprim/ <=2/38 S <=2/38 S Sulfa Performing Locations R1: This test was performed at: [facility], [address] [place] [address], [address]- , , QqyjisPizsrxThe MetroHealth SystemComment on above:Performed By: #### [id number] #### [facility] [address] [place], [place] [address]Fizhnkrlfh Visit Summaryon 93-26-5447Hwsefmbrzv Visit Summary Ambulatory Visit Summary ALEX ANDERSON :1945 Visit Date:03/31/2025 Ambulatory Visit Instructions Your Diagnosis Gross hematuria Urinary retention History of bladder cancer Anticoagulated Your Care Team Attending Physician - TC Boles APRN, Blanca Hadley Primary Care Physician - STANLEY EMERSON MD This Is Your Medications List doxycycline (doxycycline hyclate 100 mg Cap) Contact prescribing physician if questions or concerns albuterol (Albuterol (Eqv-ProAir HFA) 90 mcg/inh inhalation aerosol) amiodarone (amiodarone 200 mg Tab) atorvastatin (atorvastatin 80 mg Tab) cephalexin (Keflex 250 mg Cap) clopidogrel donepezil (donepezil 10 mg [...] bladder tumor (09/12/2022), Cystoscopy (07/31/2022). Discharge Vitals Temperature (Tympanic) 37 ???C Heart Rate (Peripheral) 70 Respiratory Rate 16 Blood Pressure 112/62 Height 187 cm Height 74 in Weight 93 kg Weight 205.03 lb BMI 26.59 What to do next Scheduled Follow-Up Appointments 2024 3:10 PM EST With: TC Boles APRN, [place] X Where: [facility] [address] [address]- You Need to Schedule the Following Appointments Follow Up with Elvi CHAUDHARI, GIANCARLO-C, Blanca X, FAM, URL When: Where: Medications What How Much When Instructions New doxycycline (doxycycline hyclate 100 mg Cap) 1 Capsules By Mouth 2 times a day Duration: 7 Daysmay substitute hyclate for monohydrate based on availability Pickup at [facility]/pharmacy #[id number] Unchanged albuterol (Albuterol (Eqv-ProAir HFA) 90 mcg/ inh inhalation aerosol) Contact prescribingphysician if questions or concerns Unchanged amiodarone (amiodarone 200 mg Tab) 1 Tablets Contact prescribing physician if questions or concerns Unchanged atorvastatin (atorvastatin 80 mg Tab) 1 Tablets By Mouth Every day Contact prescribing physician if questions or concerns Unchanged cephalexin (Keflex 250 mg Cap) 1 Capsules By Mouth Friday Duration: 30 Days Contact prescribing physician if questions or concerns [...] physician if questions or concerns Pharmacy Information [facility]/pharmacy #[id number]: [address], [place] [id number] [phone] Allergies No Known Allergies No Known Medication Allergies Problems Ongoing - Any problem that you are currently receiving treatment for. 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 Please share your experience with us by completing your survey. We appreciate your feedback and thank you for choosing us fo (more content not included)... [facility] Office/Clinic Noteon 96-61-2381Yamiygg Office/Clinic NoteUrology Office/Clinic Note Chief Complaint Pt here for blood in cath bag HPI Staff Pt is a 79 year old male here for blood in cath bag/cath change Previous DX: history of bladder cancer, urinary retention Pt dose take anticoagulants (clopidogrel 75 mg and warfarin 2 mg) S/P rezum 06/10/23 S/P TURP 09/16/23 S/P cysto 04/06/24 & 11/16/24 Pt reports that the urine in his bag has had blood in it. It has lighten up some Pt reports that he only drinks about 2 bottles of water daily and drinks about 3 cups of coffee daily Pt is anticoagulated with Coumadin and Plavix History of Present Illness Tests reviewed: none I have reviewed the previous health record [...] See HPI. Physical Exam Vitals & Measurements T: 37 ???C(Tympanic) HR: 70(Peripheral) RR: 16 BP: 112/62 HT: 187 cm HT: 74 in WT: 93 kg WT: 205.03 lb BMI: 26.59 General Appearance: alert, no distress, well nourished, well developed male. Assessment/Plan Dr. Samuels pt 1. Gross hematuria (R31.0: Gross hematuria) Hx of numerous ER visits last yr due to Zapien clogging, ~3x it was clogged by clots. was irrigating Zapien regularly but was found to only be using a few mL. Was advised to use ~60 mL. Notes she no longer routinely irrigates, as she fears so could be introducing bacteria Saw blood in catheter bag a few days ago, describes it as wine color. Denies any significant clots.Had some improvement this afternoon for the first time since it started. Currently appears pink tinged in tubing. Still taking daily suppressive Keflex, started by PCP. On AC. Denies any trauma to Zapien area. Having some bladder pressure. Discussed hematuria may be related to UTI vs trauma vs AC. Will further evaluate with urine culture and treat with abx now, given upcoming weekend. Advised pt he will need to stay off suppressive abx in the meantime but can restart after completing acute course. The Zapien was changed in the office today with no difficulties, and flushes appropriately to ensureproper placement. -Urine sample to be sent for culture. Will call pt it needing to change tx course. -Take doxycycline 100 mg bid x7 days, may need adjusted if R. -Restart suppressive Keflex after acute abx course -Cont irrigating catheter w/ 60 cc PRN -ER for any significant pain, issues with draining of catheter, significant clots, urine that is merlot in color 2. Urinary retention (R33.9: Retention of urine, unspecified) S/p Rezum 06/10/23. [1] S/p Cysto 11/16/24 - False passage posteriorly at the prostate. Obstructed prostate, long lateral lobes. 18 Fr Zapien changed. Last catheter change 03/10/24 (18 Fr coude). -Cont monthly zapien changes -See #1 3. History of bladder cancer (Z85.51: Personal history of malignant neoplasm of bladder) Original TURBT/extraction of 2 bladder calculi 09/12/22 - Noninvasive papillary urothelial carcinoma, low grade. Invasion is not recognized. A small fragment of detrusor muscle is present in the specimen. [2] Most recent cysto 11/16/24 - Neg for b.t.. Atypical cytol. Normal FISH. -Surveillance cysto/FISH/cytol due October 2025 (recall in place) 4. 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 Elevated risk for periop complications in the future. Follow-up With When Contact Information TC Bolse APRN, Blanca Hadley, FAM, URL Additional Instructions: 1 month for catheter change Patient Education Hematuria, Adult I, Apple Escoto, personally scribed for TC Chino on 03/31/2025 16:14:32. . Documentation recorded by the isidoro Escoto accurately reflects the services(s) I performed anddecisions made by me. Authenticated by Blanca Boles APRN, FNP-C on 03/31/2025 16:30:35. Portions of this record may have been created with voice recognition artificial intelligence software, specifically [employer], [employer] and or [employer]. Substitutions may have occurred due to the inherent limitations of voice recognition and artificial intelligence software. Problem List/Past Medical History Ongoing Abdominal aortic aneurysm Acute kidney failure Anticoagulated Antiplatelet or antithrombotic long-term use Bladder cancer Blad (more content not included)...[facility]ighComment on above:Result Comment: Electronically Signed By: TC Boles APRN, Blanca Hadley\\.br\\Date and Time Signed: 03/31/25 16:30 EST\\.br\\Electronically Co-Signed By: Apple Escoto\\.br\\Date and Time Co-Signed: 03/31/25 16:14 ESTECG 12 Leadon 72-03-8117Lbwudc sinus rhythm, IVCD, septal myocardial infarction of undetermined age, diffuse repolarization abnormalities, abnormal ECGCPACSOhioHealth Marion General Hospital Work Phone: xr CHEST 2Von 22-48-9235[place] [address] XRay Report Signed Patient: ALEX ANDERSON MR#: [id number] : 1945 Acct:[id number] Age/Sex: 79 / M ADM Date: 03/22/25 Loc: RAD Attending Dr: TEO AL Ordering Physician: TEO AL Date of Service: 03/22/25 Procedure(s): XR chest 2V Accession Number(s): [id number] cc: STANLEY EMERSON ; TEO AL [place] [address] Patient Name: ALEX ANDERSON MRN: [id number] date: 1945 Sex: M Assigned Patient Location: [facility] Current Patient Location: RAD Accession/Order Number: [id number] Exam Date: 03/22/2025 11:45 Report Date: 03/22/2025 [...] Person M.D. 03/22/2025 12:26 PM Dictation Location: [place] [address] Electronically authenticated by: [id number] Y Date: 03/22/2025 12:26 Dictated By: Amy Person M.D. Signed By: 03/22/25 1229 DD/ 1226 TD/TT: Title Vehicle Service Attendant:TBHRadiology, Radiologist, MD - 03/22/2025 [place] [address] XRay Report Signed Patient: ALEX ANDERSON MR#: [id number] : 1945 Acct:[id number] Age/Sex: 79 / M ADM Date: 03/22/25 Loc: RAD Attending Dr: TEO AL Ordering Physician: TEO AL Date of Service: 03/22/25 Procedure(s): XR chest 2V Accession Number(s): [id number] cc: STANLEY EMERSON ; TEO AL [place] [id number] Patient Name: ALEX ANDERSON MRN: [id number] date: 1945 Sex: M Assigned Patient Location: [facility] Current Patient Location: [facility] Accession/Order Number: [id number] Exam Date: 03/22/2025 11:45 Report Date: 03/22/2025 [...] Person M.D. 03/22/2025 12:26 PM Dictation Location: [place] [address] Electronically authenticated by: [id number] Y Date: 03/22/2025 12:26 Dictated By: Amy Person M.D. Signed By: 03/22/25 1229 DD/ 1226 TD/TT: Title Vehicle Service Attendant: MARSH[facility] HealthcareRadiology Study observation (narrative)NOMS HealthcareXR CHEST 2V Ordered By: Radiologist Radiology on 26-88-4032[facility] Work Phone: all BASIC METABOLIC PANELon 32-30-0014Gfnjc gap [Moles/Vol]16.4 mmol/LNOMS HealthcareCalcium [Mass/Vol]8.8 mg/dL8.5 - 10.1 mg/dL [facility] HealthcareChloride [Moles/Vol]107 mmol/L98 - 107 mmol/LNOMS HealthcareCO2 [Moles/Vol]27.5 mmol/L21.0 - 32.0 mmol/LNOMS HealthcareCreatinine [Mass/Vol]1.80 mg/dLHigh0.70 - 1.30 mg/dLNOCA HealthcareGFR/1.73 sq M.predicted CKD-EPI (S/P/Bld) [Vol rate/Area]44Low>=60 mL/min/1.73m 2[facility] HealthcareGlucose [Mass/Vol]88 mg/dL74 - 106 mg/dLNOCA HealthcarePotassium [Moles/Vol]3.9 mmol/L 3.5 - 5.1 mmol/LNSHARE MEDICAL CENTER – [facility] HealthcareSodium [Moles/Vol]147 mmol/XHnbv645 - 145 mmol/L [facility] HealthcareTBH EGFR-NON AF XGZCCLVI42Tbd>=60 mL/min/1.73m 2NLafayette Regional Health Center Urea nitrogen [Mass/Vol]26.0 mg/dLHigh7.0 - 18.0 mg/dLNOCA HealthcareUrea nitrogen/Creatinine [Mass ratio]14.4 mg/mgNOHermann Area District HospitalALL LIPID PROFILE (FASTING)on 61-72-6590LIRW HDL RATIO2.2[facility] HealthcareComment on above:3.3 - 4.4 LOW RISK 4.4 - 7.1 AVERAGE RISK 7.1 - 11.0 MODERATE RISK >11.0 HIGH RISK Cholesterol [Mass/Vol]86 mg/dLNINF - 200 mg/dLNOHermann Area District HospitalCholesterol in HDL [Mass/Vol]39 mg/dLLow40 - 60 mg/dLNOCA HealthcareComment on above:> or =60 mg/dl - LOW CARDIOVASCULAR RISK <40 mg/dl - HIGH CARDIOVASCULAR RISK Magnesium [Mass/Vol]33.0 mg/dLNOCA HealthcareComment on above:<100 mg/dl OPTIMAL 100-129 mg/dl NEAR OR ABOVE OPTIMAL 130-159 mg/dl BORDERLINE HIGH 160-189 mg/dl HIGH >190 mg/dl VERY HIGH Magnesium [Mass/Vol]14.8 mg/dLNOHermann Area District HospitalTriglyceride [Mass/Vol]74 mg/dLNINF - 150 mg/dLChristian HospitalALL THYROID STIM HORMONEon 85-35-3156GDH Qn16.644 m[IU]/LHighNOCA HealthcareCCF Gabby 35-76-2388DWR [Catalytic activity/Vol]18 U/L 15 - 37 U/LNOMS HealthcareNo Panel Informationon 88-07-1941Leyvbnpxznsjvg and review of laboratory resultsAbnormalNOHermann Area District HospitalCLINISYNCNSHARE MEDICAL CENTER [facility] Healthcare Ambulatory Visit Summaryon 51-74-0271Jozfayyjyr Visit SummaryAmbulatory Visit Summary ALEX ANDERSON :1945 [...] Boles APRN, [place] X Where: [facility] [address] [address]- Medications What How Much When Instructions Unchanged [...] yet, please contact Health Information Management at [phone] to get signed up today. Language Information Language assistance services are available as needed. [facility]ighErythrocyte distribution width Auto (RBC) [Ratio]Ordered By: Celia Griffin on 97-88-2285Lhggomqcjsn distribution width (RBC) [Ratio]15.7 %High11.0-15.0[facility] Glomerular filtration rate (GFR) estimation in non- AmericanOrdered By: Celia Griffin on 33-81-7810HJL/1.73 sq M.predicted among non-blacks MDRD (S/P/Bld) [Vol rate/Area]28 mL/min/{1.73_m2}Low>=60 mL/min/1.73m [address] [place] [address] CBC WITH PLATELET NO DIFFERENTIALon 02-28-2025 Erythrocyte distribution width (RBC) [Ratio]15.7 %High11.0 - 15.0 %NOMS HealthcareHematocrit (Bld) [Volume fraction]38.4 %Low42.0 - 54.0 %[facility] HealthcareHemoglobin (Bld) [Mass/Vol]11.6 g/dLLow14.0 - 18.0 g/dLChristian Hospital Interpretation and review of laboratory resultsAbnormalNOColumbia Regional HospitalH (RBC) [Entitic mass]26.6 pg25.9 - 34.[address]Mosaic Life Care [facility] [address] JosephHC (RBC) [Mass/Vol]30.2 g/dL 29.9 - 35.2 g/dLMosaic Life Care at St. JosephV (RBC) [Entitic vol]88.1 fL80.0 - 94.0 fLChristian HospitalPlatelet mean volume (Bld) [Entitic vol]10 fL9.5 - 13.5 fLChristian HospitalTB RNX375RZNKHermann Area District HospitalTB RBC4.36LowNOHermann Area District HospitalTB WBC7.1NOMS HealthcareCLINISYNCNOMS HealthcareHematocrit Auto (Bld) [Volume fraction]Ordered By: Celia Griffin on 10-82-3628Vmwljyfnst (Bld) [Volume fraction]38.4 %Low 42.0-54.0[facility] Medical CenterHemoglobin [Mass/volume] in Blood Ordered By: Celia Griffin on 54-92-7585Msytcjysju (Bld) [Mass/Vol]11.6 g/dLLow 14.0-18.0[facility] HospitalIron binding capacity [Mass/volume] in Serum or PlasmaOrdered By: Celia Griffin on 89-02-2724Flux binding capacity [Mass/Vol]301.0 ug/dL250.0-450.0[facility] HospitalIron saturation [Mass Fraction] in Serum or PlasmaOrdered By: Celia Griffin on 24-82-9682Wrvo saturation [Mass fraction]9.6 %[facility] HospitalLaboratory - Chemistry and Chemistry - challengeOrdered By: Celia Griffin on 94-16-4242Hrrhtoy [Mass/Vol]3.8 g/dL3.4-5.0[facility] HospitalCalcium [Mass/Vol]8.6 mg/dL8.5-10.1FTriHealth Bethesda North HospitalChloride [Moles/Vol]108 mmol/LHigh 98-107Prom[facility] Memorial HospitalCO2 [Moles/Vol]27.9 mmol/L21.0-32.0 [facility] HospitalCobalamin (Vitamin B12) [Mass/Vol]689 pg/mL 232-1245Prom[facility] Memorial HospitalComment on above:Performed at: - [facility] [address] [id number] Director: Morgan Carpenter PhD, Phone: [phone] [Mass/Vol]2.27 mg/dLHigh0.70-1.30 [facility] HospitalFerritin [Mass/Vol]59.0 ng/mL26.0-388.0 [facility] HospitalGFR/1.73 sq M.predicted MDRD (S/P/Bld) [Vol rate/Area]34 mL/min/{1.73_m2}Low>=60 mL/min/1.73m 2FTriHealth Bethesda North HospitalGlucose [Mass/Vol]105 mg/dW53-695EaoduzltpPromedica Memorial HospitalIron [Mass/Vol]29.0 ug/dLLow65.0-175.0[facility] Memorial HospitalMagnesium [Mass/Vol]2.3 mg/dL1.8-2.4FTriHealth Bethesda North HospitalPotassium [Moles/Vol] 3.8 mmol/L3.5-5.1FSelect Medical Specialty Hospital - Youngstownodium [Moles/Vol]145 mmol/L 136-145[facility] HospitalUrate [Mass/Vol]6.5 mg/dL3.5-7.2 [facility] HospitalUrea nitrogen [Mass/Vol]31.0 mg/dLHigh7.0-18.0 [facility] HospitalUrea nitrogen/Creatinine [Mass ratio]13.7 mg/mg [facility] HospitalLaboratory - UrinalysisOrdered By: Celia Griffin on 00-12-2506Jujocfw (U) [Mass/Vol]7.7 mg/dL<=11.9[facility] HospitalLeukocytes [#/volume] corrected for nucleated erythrocytes in Blood by Automated counOrdered By: Celia Griffin on 46-74-9853KKP corrected for nucl RBC Auto (Bld) [#/Vol]7.1 10 3/uL4.0-11.0[facility] HospitalH Auto (RBC) [Entitic mass]Ordered By: Celia Griffin on 54-86-2536CZY (RBC) [Entitic mass]26.6 pg25.9-34.0[facility] HospitalMCHC Auto (RBC) [Mass/Vol] Ordered By: Celia Griffin on 10-49-1704XMWN (RBC) [Mass/Vol]30.2 g/dL29.9-35.2 [facility] HospitalMCV Auto (RBC) [Entitic vol]Ordered By: Celia Griffin on 56-92-6518BRS (RBC) [Entitic vol]88.1 fL80.0-94.0[facility] HospitalNo Panel InformationOrdered By: Celia Griffin on - Hydroxy Vitamin D Total56.8 ng/mLPromedica Memorial HospitalComment on above:<20 ng/mL Vit D mxswdwuum50-<30 ng/mL Vit D eypmjxudkpab55-908 ng/mL Vit D sufficient>100 ng/mL Potential ToxicityFolate>20.0 ng/mL>3.0[facility] HospitalComment on above:A serum folate concentration of less than 3.1 ng/mL isconsidered to represent clinical deficiency.Performed at: [facility] [employer] [id number] Director: Morgan Carpenter PhD, Phone: [phone] Hormone (Intact)69 pg/cCNsrqdora24-08NjislvhvvPromedica Memorial HospitalComment on above:Performed at: [facility] [employer] [id number] Director: Morgan Carpenter PhD, Phone: [phone] Level3.1 mg/dL2.6-4.7FTriHealth Bethesda North HospitalUrine Random Lxbswazarg04.47 mg/dLLow20.00-300.00[facility] Platelet mean volume Auto (Bld) [Entitic vol]Ordered By: Celia Griffin on 28-49-8011Fwjbtyxx mean volume (Bld) [Entitic vol]10.0 fL9.5-13.5FTriHealth Bethesda North HospitalPlatelets Auto (Bld) [#/Vol]Ordered By: Celia Griffin on 87-43-6914Tfkjelrog (Bld) [#/Vol]193 10 3/tD047-268FljubvlmoPromedica Memorial HospitalRBC Auto (Bld) [#/Vol]Ordered By: Celia Griffin on 02-05-7983GEC (Bld) [#/Vol]4.36 10 6/uLLow4.70-6.10[facility] Hospitalerum or plasma anion gap determinationOrdered By: Celia Griffin on 28-45-4147Nfvso gap [Moles/Vol]12.9 mmol/LFTriHealth Bethesda North HospitalUrine protein/creatinine ratioOrdered By: Celia Griffin on 24-37-0778Zehkhni/Creatinine (U) [Ratio]0.47 [facility] HospitalAmbulatory Visit Summaryon 23-87-3054Dyxstlsjfs Visit SummaryAmbulatory Visit Summary ALEX ANDERSON :1945 [...] APRN, [place] X Where: [facility] [place] [id number]- Medications What How Much When Instructions Unchanged [...] signed up for this yet, please contact [employer] at [phone] to get signed up today. Language Information Language assistance services are available as needed. [facility]ighALL HEMOGLOBINon 02-02-2025 Hemoglobin (Bld) [Mass/Vol]10.9 g/dLLow14.0 - 18.0 g/dLNOCA Healthcare Interpretation and review of laboratory resultsAbnormalChristian HospitalCLINISYN NOMS HealthcareUroVysion Fish and Urine Cyto ([facility]4 [facility])on 13-12-4621FTFRLO & UC Diagnosis InfoInvalid Interpretation Nella [facility] Cross HospitalComment on above:Result Comment: A:Urine,Bladder Wash:Bladder Wash [...] with cytology and cystoscopy results. * CPT: 31127, 29913. Microscopic Notes - Microscopic Notes - Abnormal cells 9p21 deletions: Abnormal cells aneploid events: Total cells analyzed: 69 Hematuria: Gross Description Site ID:A color Light Yellow fixative Alcohol Received 100 mls of clear light yellow fluid with thepatient's name and, Bladder Wash on the vial. Electronically signed by : on: 11/29/2024 06:34:10Performed By: #### [id number] #### [facility] [address], [place] [address]Firgmvjrcz Visit Summaryon 41-65-8576Vnwniozobq Visit Summary Ambulatory Visit Summary ALEX ANDERSON :1945 Visit Date:11/16/2024 Ambulatory Visit Instructions Your Diagnosis History of bladder cancer Urinary retention Your Care Team Attending Physician - ABRIL CASILLAS, Katia Macias Primary Care Physician - [...] Eboni Anderson PA-C Where: [facility] [address] [place] [address]- You Need to Schedule the Following Appointments Follow Up with ABRIL CASILLAS, ADRIA Sterling When: Where: [facility] [address], [place] [address]- Medications What How Much When Instructions Unchanged [...] History of bladder c (more content not included)...[facility] 97-99-2405TgkaqdlceSxuqdufpp From: Dana Rivas To: EU - Recalls Abril; Sent: 08/06/2024 15:16:19 EDT Show up: 01/24/2025 15:16:00 EDT Subject: cysto/fish/cytol Due Date/Time: 02/21/2025 15:16:00 EDT Reminder/Recall Patient is due in Mar 2025 for 6 month cysto/fish/cytol, bt ck Patient is due in October 2025 for 1 year cysto/FISH/cytol, bt ckNormSelect Medical Specialty Hospital - CantonUroVysion Fish and Urine Cyto ([facility]4 [facility])on 59-36-3618BUNZ Method of ExtractionBladder WashACMC Healthcare System GlenbeighComment on above: Performed By: #### [id number] #### [facility] [address], [place] [address]RAEE Number of Alts3Qnxqhkp Interpretation CodeAdena Fayette Medical CenterComment on above:Performed By: #### [id number] #### [facility] [address], [place] [address]NVLM SpecimenBladder [facility] Comment on above:Performed By: #### [id number] #### [facility] [address], [place] [address]PSYC Type of ServiceTechnical OnlyACMC Healthcare System GlenbeighComment on above:Performed By: #### [id number] #### [facility] [address], [place] [address]Wbotszf Office/Clinic Noteon 73-61-8485Zigvayg Office/Clinic NoteUrology Office/Clinic Note Chief Complaint Cysto [...] zapien changes Follow-up With When Contact Information Katia SAMUELS MD, URL [facility] [address], [place] [address]- Additional Instructions: 1 yr surveillance cysto/bt ck/FISH/cytol Patient Education Indwelling Urinary Catheter Insertion, Care After Cancer Screening for Males I, Citlalli Rushing, personally scribed for Dr. Samuels on 11/16/2024 [...] mg oral tablet, extended (more content not included)...[facility] GlenbeighComment on above:Result Comment: Electronically Signed By: Katia SAMUELS MD\\.br\\Date and Time Signed: 11/16/24 14:52 EDT\\.br\\Electronically Co-Signed By: Citlalli Rushing.br\\Date and Time Co-Signed: 11/16/24 14:44 EDTAmbulatory Visit Summaryon 81-24-8725Pecrdpapwh Visit SummaryAmbulatory Visit Summary ALEX ANDERSON :1945 [...] Follow-Up Appointments Friday 2:00 PM EDT With: ABRIL CASILLAS, Katia Macias Where: [facility] [address] [place] [address]- Medications What How Much When Instructions Unchanged [...] you for choosing us for your care. [facility] GlenbeighErythrocyte distribution width Auto (RBC) [Ratio]on 80-84-6737Uldailyjgvx distribution width (RBC) [Ratio] Erythrocyte distribution width [Ratio] by Automated raljbQxpf06.0-15.0[facility] HospitalEstimated glomerular filtration rate (GFR) non- Americanon 11-29-9658XXF/1.73 sq M.predicted among non-blacks MDRD (S/P/Bld) [Vol rate/Area]Estimated glomerular filtration rate (GFR) non- Low>=60 mL/min/1.73m [address] [place] [address] CBC WITH PLATELET NO DIFFERENTIALon 87-21-3354Vqssadegaes distribution width (RBC) [Ratio]18.7 %High 11.0 - 15.0 %Christian HospitalHematocrit (Bld) [Volume fraction]35.8 %Low42.0 - 54.0 %Christian HospitalHemoglobin (Bld) [Mass/Vol]10.7 g/dLLow14.0 - 18.0 g/dLChristian HospitalInterpretation and review of laboratory resultsAbnormalMosaic Life Care at St. JosephH (RBC) [Entitic mass]24 pgLow25.9 - 34.[address]Mosaic [address] JosephHC (RBC) [Mass/Vol]29.9 g/dL29.9 - 35.2 g/dLMosaic Life Care at St. JosephV (RBC) [Entitic vol] 80.4 fL80.0 - 94.0 fLChristian HospitalPlatelet mean volume (Bld) [Entitic vol]9.6 fL9.5 - 13.5 fLRay County Memorial Hospital PFF067QKXRSaint John's Saint Francis Hospital RBC4.45LowChristian HospitalTB WBC6.7Christian HospitalCLINISYNCNOMS HealthcareHematocrit Auto (Bld) [Volume fraction]on 40-64-9845Uiuworypit (Bld) [Volume fraction]Hematocrit [Volume Fraction] of Blood by Automated zjpgeQby81.0-54.0[facility] HospitalHemoglobin [Mass/volume] in Bloodon 50-69-5844Tgiypihcnm (Bld) [Mass/Vol]Hemoglobin [Mass/volume] in DjoyaWqk71.0-18.0[facility] HospitalIron binding capacity [Mass/volume] in Serum or Plasmaon 31-64-5774Ehvh binding capacity [Mass/Vol]Iron binding capacity [Mass/volume] in Serum or Tiwpkh359.0-450.0[facility] HospitalIron saturation [Mass Fraction] in Serum or Plasmaon 33-51-0388Hamj saturation [Mass fraction] Iron saturation [Mass Fraction] in Serum or PlasmaPromedica Memorial HospitalLaboratory - Chemistry and Chemistry - challengeon 80-32-3076Prcmxgx [Mass/Vol]3.3 g/dLLow3.4-5.0[facility] HospitalCalcium [Mass/Vol] 8.7 mg/dL8.5-10.1FTriHealth Bethesda North HospitalChloride [Moles/Vol]104 mmol/L 98-107Prom[facility] Memorial HospitalCO2 [Moles/Vol]29.3 mmol/L21.0-32.0 [facility] HospitalCobalamin (Vitamin B12) [Mass/Vol]593 pg/mL 232-1245Prom[facility] Memorial HospitalComment on above:Performed at: - [facility] [address] [id number] Director: Morgan Carpenter PhD, Phone: [phone] [Mass/Vol]2.17 mg/dLHigh0.70-1.30 [facility] HospitalGFR/1.73 sq M.predicted MDRD (S/P/Bld) [Vol rate/Area]36 mL/min/{1.73_m2}Low>=60 mL/min/1.73m 2FTriHealth Bethesda North HospitalGlucose [Mass/Vol]95 mg/cU80-393NdaphbrfkPromedica Memorial HospitalIron [Mass/Vol]34.0 ug/dLLow65.0-175.0[facility] HospitalMagnesium [Mass/Vol]2.1 mg/dL1.8-2.4FTriHealth Bethesda North HospitalPotassium [Moles/Vol] 3.4 mmol/LLow3.5-5.1FSelect Medical Specialty Hospital - Youngstownodium [Moles/Vol]144 mmol/B122-644OxwkpnnosPromedica Memorial HospitalUrea nitrogen [Mass/Vol]35.0 mg/dL High7.0-18.0[facility] HospitalUrea nitrogen/Creatinine [Mass ratio]16.1 mg/mgPromedica Memorial HospitalLaboratory - Urinalysison 56-49-6024Jcvoyig (U) [Mass/Vol]54.5 mg/dLHigh<=11.9[facility] HospitalLeukocytes [#/volume] corrected for nucleated erythrocytes in Blood by Automated counon 22-75-1396WEQ corrected for nucl RBC Auto (Bld) [#/Vol] Leukocytes [#/volume] corrected for nucleated erythrocytes in Blood by Automated coun4.0-11.0[facility] HospitalMCH Auto (RBC) [Entitic mass]on 04-36-4398FIX (RBC) [Entitic mass]MCH [Entitic mass] by Automated countLow 25.9-34.0[facility] Memorial HospitalMCHC Auto (RBC) [Mass/Vol]on 80-78-3316VPJZ (RBC) [Mass/Vol]MCHC [Mass/volume] by Automated count29.9-35.2 [facility] HospitalMCV Auto (RBC) [Entitic vol]on 94-70-5760ZXV (RBC) [Entitic vol]MCV [Entitic volume] by Automated count80.0-94.0[facility] HospitalNo Panel Informationon 68-66-0273Gweef Random Creatinine 77.97 mg/dL20.00-300.00[facility] HospitalFolate39.70 ng/mL 8.60-58.90Prom[facility] HospitalPhosphorus Level3.4 mg/dL2.6-4.7 [facility] HospitalPlatelet mean volume Auto (Bld) [Entitic vol]on 38-01-8589Qftfmxoi mean volume (Bld) [Entitic vol]Platelet mean volume [Entitic volume] in Blood by Automated count9.5-13.5FTriHealth Bethesda North Hospital Platelets Auto (Bld) [#/Vol]on 95-42-3158Ksmnzpbxb (Bld) [#/Vol]Platelets [#/volume] in Blood by Automated ssaoc094-393ZgtxrunycPromedica Memorial Hospital RBC Auto (Bld) [#/Vol]on 34-70-5251PXQ (Bld) [#/Vol]Erythrocytes [#/volume] in Blood by Automated countLow4.70-6.10[facility] Memorial Hospitalerum or plasma anion gap determinationon 90-20-4908Rqcbt gap [Moles/Vol]Serum or plasma anion gap determinationPromedica Memorial HospitalUrine protein/creatinine ratioon 96-59-3574Lrgksks/Creatinine (U) [Ratio]Urine protein/creatinine ratio [facility] HospitalCreatinine (Bld) [Mass/Vol]Ordered By: Margarito Valentine on 48-66-5407Mccaszgchq [Mass/Vol]Whole blood creatinine measurement High0.6-1.3FTriHealth Bethesda North HospitalComment on above:ER/ESD physician is notified/shown all ISTAT results.Critical values may be confirmed by laboratory testing ifdeemed necessary by ER attending doctor.INR in Platelet poor plasma by Coagulation assayOrdered By: Margarito Valentine on 36-24-2582UEX Coag (PPP) [Relative time]INR in Platelet poor plasma by Coagulation assayPromedica Memorial HospitalComment on above:INR Therapeutic Range A) Pre- [...] 4.5ISTAT XRay CREon 10-11-2024 Creatinine [Mass/Vol]2.1 mg/dLHigh0.6-1.3[facility] Physician GroupComment on above:Result Comment: ER/ESD physician is notified/shown all ISTAT results. Critical values may be confirmed by laboratory testing if deemed necessary by ER attending doctor.Performed By: #### ADDONUAPLUS, CUU #### [facility] [address] [place] [address] USAISTAT GFR31.235NormalThe [facility] Physician GroupComment on above:Result Comment: PERFORMED BY: [place] [address] PATHOLOGIST PORTAINER OPERATOR ED CRUZ M.D.Performed By: #### ADDMOEUAPLUS, CUU #### [facility] [address] [place] [address] USANo Panel InformationOrdered By: Margarito Valentine on 53-84-4356Dqcmrpt Estimated GFR (eGFR)31.235[facility] Partial Thromboplastin Timeon 49-95-0519dXMF Coag (Bld) [Time]36.8 sHigh 25.1-36.5The [facility] Physician GroupComment on above:Result Comment: A hematocrit value greater than 55% may lead to inaccurate results in coagulation testing. Patients having hematocrit values >55% require a special collection tube for coagulation studies. Please contact the laboratory at [phone] for redraw instructions. PERFORMED BY: [address] [address] PATHOLOGIST PORTAINER OPERATOR ED CRUZ M.D.Performed By: #### PTT, PT #### [address] [address] USAProthrombin Time INRon 31-12-5244YIA Coag (PPP) [Relative time]1.6 {INR}NormalThe [facility] Physician GroupComment on above:Result Comment: INR Therapeutic [...] - 4.5Performed By: #### PTT, PT #### [address] [address] USAPT Coag (PPP) [Time]17.9 sHigh9.0-12.9[facility] Physician [facility] HospitalComment on above:Result Comment: A hematocrit value greater than 55% may lead to inaccurate results in coagulation testing. Patients having hematocrit values >55% require a special collection tube for coagulation studies. Please contact the laboratory at [phone] for redraw instructions.Performed By: #### PTT, PT #### [address] [address] USAProthrombin time (PT)Ordered By: Margarito Valentine on 85-28-0201PS Coag (PPP) [Time]Prothrombin time (PT)High9.0-12.9[facility] HospitalComment on above:A hematocrit value greater than 55% may lead to inaccurate results in coagulation testing. Patientshaving hematocrit values >55% require a special collection tube for coagulation studies. Please c ontact the laboratory at [phone] for redraw instructions.aPTT in Platelet poor plasma by Coagulation assayOrdered By: Margarito Valentine on 33-75-1722rHQH Coag (PPP) [Time]Activated partial thromboplastin time (aPTT) in platelet poor plasma by coagulation [facility]25.1-36.5FTriHealth Bethesda North HospitalComment on above:A hematocrit value greater than 55% may lead to inaccurate results in coagulation testing. Patientshaving hematocrit values >55% require a special collection tube for coagulation studies. Please contact the laboratory at [phone] for redraw instructions.Cult,Urineon 88-36-5348Eier,UrineSpecimen Description .CLEAN CATCH URINE Special Requests Site: Urine Culture ENTEROBACTER CLOACAE COMPLEX >100,000 CFU/ML Report Status FINAL 10/06/2024 SUSCEPTIBILITY Organism ENCLCX Method RITESH Gentamicin <=1 SUSCEPTIBLE Levofloxacin 1 INTERMEDIATE Nitrofurantoin 64 INTERMEDIATE Piperacillin/Tazobactam 64 INTERMEDIATE Tobramycin <=1 SUSCEPTIBLE Trimethoprim/Sulfa <=20 SUSCEPTIBLE SUSCEPTIBILITY Organism ENCLCX Method ROGERS CARRENO Ceftriaxone SUSCEPTIBLESusceptibleMercy Marietta Memorial HospitalComment on above: Performed By: #### OBS #### [facility] [address] [facility] [place] [address] Shelter Case Manager: Milo Engle DOMHPT CULT,URINEon 87-48-3052Tsubouowebfkxw and review of laboratory resultsAbnormalUTAH STATE HOSPITAL HealthcarePT CULT,URINESpecimen Description .CLEAN CATCH URINENOCA HealthcareMHPT CULT,URINESpecial Requests Site: UrineNOCA HealthcareMHPT CULT,URINECulture ENTEROBACTER CLOACAE COMPLEX >100,000 CFU/MLAbnormalUTAH STATE HOSPITAL HealthcarePT CULT,URINEReport Status FINAL 10/06/2024NOCA HealthcareMHPT CULT,URINEMethod MICNOMS HealthcareMHPT CULT,URINE Gentamicin <=1 SUSCEPTIBLESusceptibleNOCA HealthcareMHPT CULT,URINELevofloxacin 1 INTERMEDIATEIntermediateNOMS HealthcareMHPT CULT,URINENitrofurantoin 64 INTERMEDIATEIntermediateNOMS HealthcareMHPT CULT,URINEPiperacillin/Tazobactam 64 INTERMEDIATEIntermediateNOMS HealthcareMHPT CULT,URINETobramycin <=1 SUSCEPTIBLESusceptibleNOMS HealthcareMHPT CULT,URINETrimethoprim/Sulfa <=20 SUSCEPTIBLESusceptibleNOMS HealthcareMHPT CULT,URINEMethod ROGERS CARRENO SusceptibleNOMS HealthcareMHPT CULT,URINECeftriaxone SUSCEPTIBLESusceptibleNOMS HealthcareOriginal Ordering Provider: WAQAR ADORNOISYNCNOCA HealthcareNo Panel Informationon 77-68-5803FEGA CULT,URINE SUSCEPTIBILITY SusceptibleNOMS HealthcareMHPT CULT,URINEOrganism ENCLCXSusceptibleNOMS HealthcareBasic Metab w/rfx MGon 96-86-0034Yfkdy gap [Moles/Vol]9 mmol/LNormal 9-16[facility] HospitalComment on above:Performed By: #### OBS #### [facility] [place] [address] Shelter Case Manager: Milo Engle DOCalcium [Mass/Vol]8.6 mg/dLNormal8.6-10.4 [facility] HospitalComselect specialty hospital on above:Performed By: #### OBS #### [facility] [address] [place] [address] Shelter Case Manager: Milo Engle DOChloride [Moles/Vol]105 mmol/LTiiexd36-376 [facility] HospitalComment on above:Performed By: #### OBS #### [facility] [address] [place] [address] Shelter Case Manager: Milo Engle DOCO2 [Moles/Vol]27 mmol/WGkmxrz91-21GszjbChillicothe HospitalComselect specialty hospital on above:Performed By: #### OBS #### [facility] [address] [place] [address] Shelter Case Manager: Milo Engle DOCreatinine [Mass/Vol]1.9 mg/dLHigh0.7-1.2 [facility] HospitalComselect specialty hospital on above:Performed By: #### OBS #### [facility] [address] [place] [address] Shelter Case Manager: Milo Engle, DOGFR/1.73 sq M.predicted among non-blacks MDRD (S/P/Bld) [Vol rate/Area]35 mL/min/{1.73_m2}Low>60[facility] Comment on above:Result Comment: These results [...] renal tubular secretion.Performed By: #### OBS #### [facility] [address] [place] [address] Shelter Case Manager: Milo Engle DOGlucose [Mass/Vol]97 mg/qGYtedsq85-60RsrnhKettering Health SpringfieldComment on above:Performed By: #### OBS #### [facility] [address] [place] [address] Shelter Case Manager: Milo Engle DOPotassium [Moles/Vol]3.3 mmol/LLow3.7-5.3 [facility] HospitalComment on above:Performed By: #### OBS #### [facility] [address] [place] [address] Shelter Case Manager: Milo Engle DOSodium [Moles/Vol]141 mmol/CCdaoqs522-005 [facility] HospitalComselect specialty hospital on above:Performed By: #### OBS #### [facility] [address] [place] [address] Shelter Case Manager: Milo Engle DOUrea nitrogen [Mass/Vol]24 mg/dLHigh8-23[facility] HospitalComselect specialty hospital on above:Performed By: #### OBS #### [facility] [address] [place] [address] Shelter Case Manager: Milo Engle DOBasic Metabolic Panel w/ Reflex to MGon 51-86-3163Ubkdl gap [Moles/Vol]9 mmol/L9 - 16 mmol/LBon [facility] Calcium [Mass/Vol]8.6 mg/dL8.6 - 10.4 mg/dLBon [facility] HospitalChloride [Moles/Vol]105 mmol/L98 - 107 mmol/LBon [facility] HospitalCO2 [Moles/Vol]27 mmol/L20 - 31 mmol/LBon [facility] HospitalCreatinine [Mass/Vol]1.9 mg/dLHigh 0.7 - 1.2 mg/dLBon [facility] HospitalEst, Glom Filt Xisz37Wcw- PINFBon [facility] HospitalComment on above: These results are not [...] secretion. Glucose [Mass/Vol]97 mg/dL74 - 99 mg/dLBon [facility] HospitalInterpretation and review of laboratory resultsAbnormalBon [facility] HospitalPotassium [Moles/Vol]3.3 mmol/LLow3.7 - 5.3 mmol/LBon [facility] HospitalSodium [Moles/Vol]141 mmol/L136 - 145 mmol/LBon [facility] HospitalUrea nitrogen [Mass/Vol]24 mg/dLHigh8 - 23 mg/dLBon [facility] HealthCBC with Auto Differentialon 22-63-1872Wwhvlwzna (Bld) [#/Vol]0.05 10*3/uL [facility] HospitalBasophils/100 WBC (Bld)1 %0 - 2 %[facility]'S HospitalEosinophils (Bld) [#/Vol]0.2 10*3/uLBon Secours St. [facility]'S [facility] Eosinophils/100 WBC (Bld)4 %0 - 4 %[facility] AphiosErythrocyte distribution width (RBC) [Ratio]21.2 %High11.5 - 14.9 %[facility] Hematocrit (Bld) [Volume fraction]35.3 %Low41 - 53 %[facility] Hemoglobin (Bld) [Mass/Vol]11.5 g/dLLow13.5 - 17.5 g/dLBon SecWilson [address] Hospital Immature granulocytes (Bld) [#/Vol]0 10*3/uLBon SecWilson Street HospitalImmature granulocytes/100 WBC (Bld)0 %0[facility]'S HospitalInterpretation and review of laboratory resultsAbnormalBon [facility] HospitalLymphocytes/100 WBC (Bld)30 %24 - 44 %[facility]'S HospitalLymphocytes/100 WBC (Bld)1.53 %Bon [facility] HospitalMCH (RBC) [Entitic mass]24.8 pgLow26 - [address] [facility] MCHC (RBC) [Mass/Vol]32.7 g/dL31 - 37 g/dLBon [facility] HospitalMCV (RBC) [Entitic vol]75.8 fLLow80 - [address] Mary'S HospitalMonocytes/100 WBC (Bld)7 %1 - 7 %[facility]'S HospitalMonocytes/100 WBC (Bld)0.36 %Bon [facility] HospitalMorphology Ian (Bld) [Interp]ANISOCYTOSIS PRESENTBon Secours St. Mary'S HospitalMorphology Ian (Bld) [Interp]HYPOCHROMIA PRESENTBon Secours St. [facility] Morphology Ian (Bld) [Interp]FEW ELLIPTOCYTESBon Secours St. Mary'S Hospital Neutrophils/100 WBC (Bld)58 %36 - 66 %[facility] Mary'S HospitalPlatelet mean volume (Bld) [Entitic vol]8.1 fL6.0 - 12.0 fLBon SecLafayette General Southwest HealthPlatelets (Bld) [#/Vol]173 10*3/uLBon SecWilson Street HospitalRBC (Bld) [#/Vol]4.65 10*6/uL4.5 - 5.9 m/uLBon [facility] HospitalSegmented neutrophils/100 WBC (Bld)2.96 %[facility] Mary'S HospitalWBC other (Bld) [#/Vol]5.1Bon SecSt. [facility] God Hospital Secours [facility] with Diffon 81-93-5517Uxw. Basophil0.05 k/uLNormal 0.0-0.2[facility] hospitaly [facility] HospitalComment on above:Performed By: #### OBS #### [facility] [address] [place] [address] Shelter Case Manager: Milo Engle DOAbs.Imm.Granulocyte0.00 k/uLNormal0.00-0.30 [facility] HospitalComment on above:Performed By: #### OBS #### [facility] [address] [place] [address] Shelter Case Manager: Milo Engle DOAbs.Neutrophil (Seg)2.96 k/uLNormal1.3-9.1 [facility] HospitalComment on above:Performed By: #### OBS #### [facility] [address] [place] [address] Shelter Case Manager: Milo Engle DOBasophils/100 WBC (Bld)1 %Normal0-2MKettering Health SpringfieldComment on above:Performed By: #### OBS #### [facility] [facility] [place] [address] Shelter Case Manager: Milo Engle DOEosinophils (Bld) [#/Vol]0.20 10*3/uLNormal 0.0-0.4[facility] HospitalComselect specialty hospital on above:Performed By: #### OBS #### [facility]0 [place] [address] Shelter Case Manager: Milo Engle DOEosinophils/100 WBC (Bld)4 %Normal0-4[facility] HospitalComselect specialty hospital on above:Performed By: #### OBS #### [facility] [address] [place] [address] Shelter Case Manager: Milo Engle DOImmature granulocytes/100 WBC (Bld)0 %Normal0 [facility] on above:Performed By: #### OBS #### [facility] [place] [address] Shelter Case Manager: Milo Engle DOLymphocytes (Bld) [#/Vol]1.53 10*3/uLNormal 1.0-4.8[facility] HospitalComselect specialty hospital on above:Performed By: #### OBS #### [facility] [place] [address] Shelter Case Manager: Milo Engle DOLymphocytes/100 WBC (Bld)30 %Kwjlli55-43BorieProtestant Deaconess Hospital on above:Performed By: #### OBS #### [facility] [address] [place] [address] Shelter Case Manager: Milo Engle DOMonocytes (Bld) [#/Vol]0.36 10*3/uLNormal 0.1-1.3MKettering Health SpringfieldComselect specialty hospital on above:Performed By: #### OBS #### [facility] [address] [place] [address] Shelter Case Manager: Milo Engle DOMonocytes/100 WBC (Bld)7 %Normal1-7[facility] on above:Performed By: #### OBS #### [facility] [address] [place] [address] Shelter Case Manager: Milo Engle DOMorphology Ian (Bld) [Interp]ANISOCYTOSIS PRESENTNormalProtestant Deaconess Hospital on above:Result Comment: HYPOCHROMIA PRESENT FEW ELLIPTOCYTESPerformed By: #### OBS #### [facility] [address] [place] [address] Shelter Case Manager: Milo Engle DONeutrophil (Seg)58 %Setydf84-83UstpnChillicothe HospitalComment on above:Performed By: #### OBS #### [facility] [address] [place] [address] Shelter Case Manager: Milo Engle DOErythrocyte distribution width (RBC) [Ratio] 21.2 %High11.5-14.9[facility] HospitalComselect specialty hospital on above:Performed By: #### OBS #### [facility] [address] [place] [address] Shelter Case Manager: Milo Engle DOHematocrit (Bld) [Volume fraction]35.3 %Low 41-53[facility] HospitalComselect specialty hospital on above:Performed By: #### OBS #### [address] [address] Shelter Case Manager: Milo Engle DOHemoglobin (Bld) [Mass/Vol]11.5 g/dLLow 13.5-17.5[facility] HospitalComselect specialty hospital on above:Performed By: #### OBS #### [facility] [address] [place] [address] Shelter Case Manager: Milo Engle DOMCH (RBC) [Entitic mass]24.8 wjSuu05-06NrgehChillicothe HospitalComselect specialty hospital on above:Performed By: #### OBS #### [facility] [address] [place] [address] Shelter Case Manager: Milo Engle DOMCHC (RBC) [Mass/Vol]32.7 g/rRGelkwq80-78 [facility] on above:Performed By: #### OBS #### [facility] [address] [place] [address] Shelter Case Manager: Milo Engle DOMCV (RBC) [Entitic vol]75.8 jMJue24-202ByohhChillicothe HospitalComment on above:Performed By: #### OBS #### [facility] [address] [facility] [place] [address] Shelter Case Manager: Milo Engle DOPlatelet mean volume (Bld) [Entitic vol]8.1 fLNormal6.0-12.0[facility] HospitalComselect specialty hospital on above:Performed By: #### OBS #### [facility] [address] [place] [address] Shelter Case Manager: Milo Engle DOPlatelets (Bld) [#/Vol]173 10*3/uLNormal 150-450Ch[facility] HospitalComment on above:Performed By: #### OBS #### [facility] [address] [place] [address] Shelter Case Manager: Milo Engle DORBC (Bld) [#/Vol]4.65 10*6/uLNormal4.5-5.9 [facility] HospitalComment on above:Performed By: #### OBS #### [facility]0 [facility] [place] [address] Shelter Case Manager: Milo Engle DOWBC (Bld) [#/Vol]5.1 10*3/uLNormal3.5-11.0 [facility] on above:Performed By: #### OBS #### [facility]0 [place] [address] Shelter Case Manager: Milo Engle DOEKG 12 LeadOrdered By: All Cornejo on [id number] Main35ZKQAli [facility] Work Phone: p [id number] [facility] Work Phone: p-R Zatleomu262 msBon [facility] Work Phone: [phone]-T [id number] [facility] [employer] Phone: [phone] [id number] msBon [facility] [employer] Phone: [phone] Calculation (Bazett)471 msBon [employer] Work Phone: [phone] [place]-16degreesBon [facility] [employer] Phone: [phone] [id number] [facility] [employer] Phone: [phone] Bjug79UORWln [facility] [employer] Phone: [phone] [facility] [employer] Phone: [phone] 12 Leadon 51-03-3342Sfxcl rhythm with 1st degree A-V block Incomplete left bundle branch block ST & T wave abnormality, consider anterior ischemia Abnormal ECG When compared with ECG of 04-Oct-2024 15:45, (unconfirmed) No significant change was foundNEW LIFEC[facility] All Mcintosh DO - 10/05/2024 Sinus rhythm with 1st degree A-V block Incomplete left bundle branch block ST & T wave abnormality, consider anterior ischemia Abnormal ECG When compared with ECG of 04-Oct-2024 15:45, (unconfirmed) No significant change was found [facility] Binding Cap.on 10-05-2024% Fe Ofsxrwjxkb12 %Normal 20-55[facility] HospitalComselect specialty hospital on above:Performed By: #### OBS #### [facility] [address] [place] [address] Shelter Case Manager: Milo Engle DOIron [Mass/Vol]103 ug/yMBwwmhi07-269RwvhjChillicothe HospitalComselect specialty hospital on above:Performed By: #### OBS #### [facility] [address] [place] [address] Shelter Case Manager: Milo Engle DOTotal Fe Binding Qxt032 ug/wIDowuvs593-215 [facility] HospitalComment on above:Performed By: #### OBS #### [facility] [address] [place] [address] Shelter Case Manager: Milo Engle DOUnbound Fe Bind Txa355 ug/pPQfgjol692-910 [facility] HospitalComselect specialty hospital on above:Performed By: #### OBS #### [facility] [address] [place] [address] Shelter Case Manager: Milo Engle DOIron and TIBCon 19-14-9389Seff [Mass/Vol]103 ug/dL61 - 157 ug/dLBon [facility] HospitalIron binding capacity [Mass/Vol]250 ug/dL250 - 450 ug/dLBon [facility] Hospitaln saturation [Mass fraction]41 % 20 - 55 %Bon [facility] HospitalUIBC147 ug/dL112 - 347 ug/dLBon [facility] Avera HealthMagnesiumon 42-95-1695Lakmlawey [Mass/Vol]2.3 mg/dL1.6 - 2.4 mg/dLBon [facility] Avera HealthMagnesium [Mass/Vol]2.3 mg/dLNormal1.6-2.4[facility] HospitalComselect specialty hospital on above: Performed By: #### OBS #### [facility] [place] [address] Shelter Case Manager: Milo Engle DOPTon 28-34-3876GAQ Coag (PPP) [Relative time] 2.0 {INR}NormalChillicothe HospitalComselect specialty hospital on above:Result Comment: Therapeutic Range: Moderate Anticoagulant Intensity: INR = 2.0-3.0 High Anticoagulant Intensity: INR = 2.5-3.5Performed By: #### OBS #### [facility] [address] [place] [address] Shelter Case Manager: Milo Engle DOPT Coag (PPP) [Time]24.9 sHigh11.8-14.6Mercy Panola HospitalComment on above:Performed By: #### OBS #### [facility]0 [place] [address] Shelter Case Manager: Milo Engle DOProtime-INRon 31-17-2269GUX Coag (PPP) [Relative time]2 {INR}[facility] on above: Therapeutic Range: Moderate Anticoagulant Intensity: INR = 2.0-3.0 High Anticoagulant Intensity: INR = 2.5-3.5 Interpretation and review of laboratory resultsAbnoLewisGale Hospital Montgomery PT Coag (PPP) [Time]24.9 sHighBon [facility] Basic Metab w/rfx MGon 90-99-1742Wmrnx gap [Moles/Vol]8 mmol/LLow9-16[facility] HospitalComselect specialty hospital on above:Performed By: #### BMPX CDP, PT #### [facility] [address] [place] [address] Shelter Case Manager: Milo Engle DOCalcium [Mass/Vol]8.7 mg/dLNormal8.6-10.4 [facility] on above:Performed By: #### BMPX, CDP, PT #### [facility] [address] [place] [address] Shelter Case Manager: Milo Engle DOChloride [Moles/Vol]109 mmol/OLemm37-616QrbkoProtestant Deaconess Hospital on above:Performed By: #### BMPX CDP, PT #### [facility] [address] [place] [address] Shelter Case Manager: Milo Engle DOCO2 [Moles/Vol]27 mmol/IBurgmm22-46PioffProtestant Deaconess Hospital on above:Performed By: #### BMPX, CDP, PT #### [facility] [address] [place] [address] Shelter Case Manager: Milo Engle DOCreatinine [Mass/Vol]1.8 mg/dLHigh0.7-1.2 [facility] HospitalComment on above:Performed By: #### ERIKA CDP, PT #### [facility] [address] [place] [address] Shelter Case Manager: Milo Engle DOGFR/1.73 sq M.predicted among non-blacks MDRD (S/P/Bld) [Vol rate/Area]38 mL/min/{1.73_m2}Low>60[facility] Comment on above:Result Comment: These results [...] secretion.Performed By: #### MAGY JAMES, PT #### [facility] [address] [place] [address]. [place] [address] Shelter Case Manager: Milo Engle DOGlucose [Mass/Vol]103 mg/oKOpue03-81HzcfoKettering Health SpringfieldComment on above:Performed By: #### MAGY JAMES, PT #### [facility] [address] [place] [address]. [place] [address] Shelter Case Manager: Milo Engle DOPotassium [Moles/Vol]3.8 mmol/LNormal3.7-5.3 [facility] HospitalComselect specialty hospital on above:Performed By: #### EMILYX CDP, PT #### [facility] [facility] [place] [address] Shelter Case Manager: Milo Engle, DOSodium [Moles/Vol]144 mmol/KXgtegc080-183 [facility] HospitalComselect specialty hospital on above:Performed By: #### MAGY JAMES, PT #### [facility] [address] [facility] [place] [address] Shelter Case Manager: Milo Engle DOUrea nitrogen [Mass/Vol]22 mg/dLNormal8-23 [facility] HospitalComment on above:Performed By: #### ERIKA, MAGY, PT #### [facility] [address] [facility] [place] [address] Shelter Case Manager: Milo Engle DOBasic Metabolic Panel w/ Reflex to MGon 97-31-7826Jfixw gap [Moles/Vol]8 mmol/LLow9 - 16 mmol/LBon [facility] Calcium [Mass/Vol]8.7 mg/dL8.6 - 10.4 mg/dLBon [facility] HospitalChloride [Moles/Vol]109 mmol/LHigh98 - 107 mmol/LBon [facility] HospitalCO2 [Moles/Vol] 27 mmol/L20 - 31 mmol/LBon [facility] HospitalCreatinine [Mass/Vol]1.8 mg/dL High0.7 - 1.2 mg/dLBon [facility] HospitalEst, Glom Filt Jche76Beq- PINFBon [facility] HospitalComment on above: These results are not [...] that affects renal tubular secretion. Glucose [Mass/Vol]103 mg/vVAfzz59 - 99 mg/dLBon [facility] Interpretation and review of laboratory resultsAbnormalBon [facility] Potassium [Moles/Vol]3.8 mmol/L3.7 - 5.3 mmol/LBon [facility] HospitalSodium [Moles/Vol]144 mmol/L136 - 145 mmol/LBon [facility] HospitalUrea nitrogen [Mass/Vol]22 mg/dL8 - 23 mg/dLBon [facility]St[facility] Blood Occult Stool Screen #1on [id number], Stool #[id number] SecWilson Street HospitalHemoglobin.gastrointestinal spec 1 Ql (Stl)NegativeNEGATIVEBon [facility] Healthcarethelma [facility] HospitalTime, Stool #[id number] [facility]St[facility] SecWilson Street HospitalCBC with Auto Differentialon 89-80-1482Cjbutzend (Bld) [#/Vol]0.03 10*3/uLBon [facility] HospitalBasophils/100 WBC (Bld)1 %0 - 2 %Bon [facility] [facility] Eosinophils (Bld) [#/Vol]0.29 10*3/uLBon [facility] Surgical HospitalEosinophils/100 WBC (Bld)4 %0 - 4 %[facility] HospitalErythrocyte distribution width (RBC) [Ratio]20 %High11.5 - 14.9 %Bon [facility] HospitalHematocrit (Bld) [Volume fraction]38.7 %Low41.0 - 53.0 %Bon [facility] HospitalHemoglobin (Bld) [Mass/Vol]11.2 g/dLLow13.5 - 17.5 g/dLBon [facility] HospitalImmature granulocytes (Bld) [#/Vol][facility] HospitalImmature granulocytes/100 WBC (Bld)0 %0[facility] HealthInterpretation and review of laboratory results AbnormalBon SecWilson Street HospitalLymphocytes/100 WBC (Bld)17 %Low24 - 44 %Bon SecWilson [address] HospitalLymphocytes/100 WBC (Bld)1.13 %Bon [facility] HospitalH (RBC) [Entitic mass]24 pgLow26.0 - 34.0 pgBon [facility] HospitalHC (RBC) [Mass/Vol]28.9 g/dLLow31.0 - 37.0 g/dLBon [facility] Surgical HospitalV (RBC) [Entitic vol]83 fL80.0 - 100.0 fLBon [facility] HealthMonocytes/100 WBC (Bld)15 %High 3 - 12 %[facility] HealthMonocytes/100 WBC (Bld)0.98 %[facility] HospitalNeutrophils/100 WBC (Bld)63 %36 - 66 %[facility]'S HospitalNucleated RBC/100 WBC (Bld) [Ratio]0 %[address] Mary'S HospitalPlatelet mean volume (Bld) [Entitic vol]10.2 fL8.0 - 13.5 fLBon [facility] HospitalPlatelets (Bld) [#/Vol]195 10*3/uLBon [facility] HospitalRBC (Bld) [#/Vol]4.66 10*6/uL 4.21 - 5.77 m/uLBon [facility] HospitalSegmented neutrophils/100 WBC (Bld)4.2 % [facility] Mary'S HospitalWBC other (Bld) [#/Vol]6.7Bon [facility] HealthCBC with Diffon 36-41-5964Bnb. Basophil0.03 k/uLNormal 0.00-0.20[facility] HospitalComment on above:Performed By: #### MAGY JAMES, PT #### [facility] [address] [place] [address] Shelter Case Manager: Milo Engle DOAbs.Imm.Granulocyte<0.87Ujkekf2.00-0.30[facility] HospitalComselect specialty hospital on above:Performed By: #### MAGY JAMES, PT #### [facility] [address] [place] [address] Shelter Case Manager: Milo Engle DOAbs.Neutrophil (Seg)4.20 k/uLNormal1.50-8.10 [facility] HospitalComselect specialty hospital on above:Performed By: #### MAGY JAMES, PT #### [facility] [address] [place] [address] Shelter Case Manager: Milo Engle DOBasophils/100 WBC (Bld)1 %Normal0-2[facility] HospitalComment on above:Performed By: #### MAGY JAMES, PT #### [facility] [address] [place] [address] Shelter Case Manager: Milo Engle DOEosinophils (Bld) [#/Vol]0.29 10*3/uLNormal 0.00-0.44[facility] on above:Performed By: #### MAGY JAMES, PT #### [facility] [place] [address] Shelter Case Manager: Milo Engle DOEosinophils/100 WBC (Bld)4 %Normal0-4[facility] HospitalComselect specialty hospital on above:Performed By: #### MAGY JAMES, PT #### [facility] [address] [place] [address] Shelter Case Manager: Milo Engle DOErythrocyte distribution width (RBC) [Ratio] 20.0 %High11.5-14.9[facility] on above:Performed By: #### MAGY JAMES, PT #### [facility] [address] [place] [address] Shelter Case Manager: Milo Engle DOHematocrit (Bld) [Volume fraction]38.7 %Low 41.0-53.0[facility] on above:Performed By: #### MAYG JAMES, PT #### [facility] [address] [place] [address] Shelter Case Manager: Milo Engle DOHemoglobin (Bld) [Mass/Vol]11.2 g/dLLow 13.5-17.5[facility] on above:Performed By: #### MAGY JAMES, PT #### [facility] [address] [place] [address] Shelter Case Manager: Milo Engle DOImmature granulocytes/100 WBC (Bld)0 %Normal0 [facility] on above:Performed By: #### BMPX, CDP, PT #### [facility] [place] [address] Shelter Case Manager: Milo Engle DOLymphocytes (Bld) [#/Vol]1.13 10*3/uLNormal 1.10-3.70[facility] HospitalComselect specialty hospital on above:Performed By: #### MAGY JAMES, PT #### [facility] [place] [address] Shelter Case Manager: Milo Engle DOLymphocytes/100 WBC (Bld)17 %Xan56-72ArsqcProtestant Deaconess Hospital on above:Performed By: #### MAGY JAMES, PT #### [facility] [address] [place] [address] Shelter Case Manager: Milo Engle DOMCH (RBC) [Entitic mass]24.0 pgLow26.0-34.0 [facility] on above:Performed By: #### MAGY JAMES, PT #### [facility] [address] [place] [address] Shelter Case Manager: Milo Engle DOMCHC (RBC) [Mass/Vol]28.9 g/dLLow31.0-37.0 [facility] on above:Performed By: #### MAGY JAMES, PT #### [facility] [address] [place] [address] Shelter Case Manager: Milo Engle DOMCV (RBC) [Entitic vol]83.0 fLNormal 80.0-100.0[facility] on above:Performed By: #### MAGY JAMES, PT #### [facility] [address] [place] [address] Shelter Case Manager: Milo Engle DOMonocytes (Bld) [#/Vol]0.98 10*3/uLNormal 0.10-1.20[facility] on above:Performed By: #### MAGY JAMES, PT #### [facility] [address] [facility] [place] [address] Shelter Case Manager: Milo Engle DOMonocytes/100 WBC (Bld)15 %High3-12[facility] on above:Performed By: #### MAGY JAMES, PT #### [facility] [place] [address] Shelter Case Manager: Milo Engle DONeutrophil (Seg)63 %Juysxl16-65WesseProtestant Deaconess Hospital on above:Performed By: #### MAGY JAMES, PT #### [facility] [address] [place] [address]. [place] [address] Shelter Case Manager: Milo Engle DONRBC Automated0.0 per 100 IHOXqdosb7ZcwbfChillicothe HospitalComselect specialty hospital on above:Performed By: #### MAGY JAMES, PT #### [facility] [address] [place] [address]. [place] [address] Shelter Case Manager: Milo Engle DOPlatelet mean volume (Bld) [Entitic vol]10.2 fLNormal8.0-13.5[facility] HospitalComselect specialty hospital on above:Performed By: #### MAGY JAMES, PT #### [facility] [place] [address] Shelter Case Manager: Milo Engle DOPlatelets (Bld) [#/Vol]195 10*3/uLNormal 150-450[facility] HospitalComselect specialty hospital on above:Performed By: #### MAGY JAMES, PT #### [facility] [address] [place] [address] Shelter Case Manager: Milo Engle DORBC (Bld) [#/Vol]4.66 10*6/uLNormal4.21-5.77 [facility] HospitalComment on above:Performed By: #### BMPX, MAGY, PT #### [facility] [place] [address] Shelter Case Manager: Milo Engle DOWBC (Bld) [#/Vol]6.7 10*3/uLNormal3.5-11.0 [facility] HospitalComment on above:Performed By: #### EMILYX, MAGY, PT #### [facility] [place] [address] Shelter Case Manager: Milo Engle DOMycoplasma Ab, IgMon 42-99-0783Tibqacizmg Ab, IgM0.11Normal<0.91[facility] HospitalComment on above:Result Comment: Reference Range: <=0.90 Negative 0.91-1.09 Equivocal >=1.10 PositivePerformed By: #### OBS #### [facility] [address] [place] [address] Shelter Case Manager: Milo Engle DOMycoplasma Ab,IgMon 10-04-2024M. pneumoniae IgM IA Ql (S)0.11NINF - 0.91[facility]'S HospitalComment on above: Reference Range: <=0.90 Negative 0.91-1.09 Equivocal >=1.[address] [facility]'S HospitalNo Panel InformationOrdered By: Alex Alcala on 13-15-6147Iela surface area Derived from formula2.04 m2Bon [facility] Work Phone: bon [facility] Work Phone: No Panel Informationon 58-19-8371Um evidence of deep vein or superficial vein [...] 1.293 cm.Color flow seen in residual lumen. Keyseating Machine Set Up Operator Details A pollard scale, color Doppler imaging and spectral Doppler analysis ultrasound was performed. During the study longitudinal and transverse views were obtained. Study was technically difficult due to: bedside exam, patient positioning and edema.[facility] CV CPACSRadiology Study observation (narrative)Bon [facility] HospitalOcc Bld, Fecal Scrnon 73-95-5118Mdjhzw Blood 1NegativeNoCincinnati Shriners HospitalComment on above:Performed By: #### OBS #### [facility] [address] [facility] [place] [address] Shelter Case Manager: Milo Engle DOSpecimen 1 [id number] Regional Medical CenterComselect specialty hospital on above:Performed By: #### OBS #### [facility] [address] [facility]. [place], [place] [address] Shelter Case Manager: Milo Engle DOSpecimen 1 [id number] Deaconess Hospital on above:Performed By: #### OBS #### [facility] [address] [place] [address] Shelter Case Manager: Milo Engle DOPTon 51-02-7787URG Coag (PPP) [Relative time] 1.7 {INR}[facility] on above:Result Comment: Therapeutic Range: Moderate Anticoagulant Intensity: INR = 2.0-3.0 High Anticoagulant Intensity: INR = 2.5-3.5Performed By: #### BMPX, CDP, PT #### [facility] [address] [place] [address] Shelter Case Manager: Milo Engle DOPT Coag (PPP) [Time]22.0 sHigh11.8-14.6MercSelect Medical Specialty Hospital - CantonComselect specialty hospital on above:Performed By: #### BMPX, CDP, PT #### [facility] [address] [place] [address] Shelter Case Manager: Milo Engle DOProtime-INRon 57-48-1375XBG Coag (PPP) [Relative time]1.7 {INR}[facility] on above: Therapeutic Range: Moderate Anticoagulant Intensity: INR = 2.0-3.0 High Anticoagulant Intensity: INR = 2.5-3.5 Interpretation and review of laboratory resultsAbnoLewisGale Hospital Montgomery PT Coag (PPP) [Time]22.0 sHighBon [facility] B12/Folate Panelon 58-86-1628Wstng Acid28.5 ng/mLHigh4.8-24.2[facility] on above:Performed By: #### BMPX, CDP, PT #### [facility] [address] [place] [address] Shelter Case Manager: Milo Engle DOCobalamin (Vitamin B12) [Mass/Vol]377 pg/mL Xtqbla742-2508VhyzzChillicothe HospitalComment on above:Performed By: #### MAGY JAMES, PT #### [facility] [place] [address] Shelter Case Manager: Milo Engle DOBasic Metab w/rfx MGon 43-17-1926Rtzzy gap [Moles/Vol]8 mmol/LLow9-16[facility] HospitalComselect specialty hospital on above:Performed By: #### MAGY JAMES, PT #### [facility] [address] [place] [address] Shelter Case Manager: Milo Engle DOCalcium [Mass/Vol]8.3 mg/dLLow8.6-10.4[facility] HospitalComselect specialty hospital on above:Performed By: #### MAGY JAMES, PT #### [facility] [address] [place] [address] Shelter Case Manager: Milo Engle DOChloride [Moles/Vol]110 mmol/SYyqx65-890NkwchChillicothe HospitalComselect specialty hospital on above:Performed By: #### MAGY JAMES, PT #### [facility] [address] [place] [address] Shelter Case Manager: Milo Engle DOCO2 [Moles/Vol]24 mmol/JNuyrdf36-07IrkcnChillicothe HospitalComselect specialty hospital on above:Performed By: #### MAGY JAMES, PT #### [facility] [address] [place] [address] Shelter Case Manager: Milo Engle DOCreatinine [Mass/Vol]1.7 mg/dLHigh0.7-1.2 [facility] HospitalComselect specialty hospital on above:Performed By: #### MAGY JAMES, PT #### [facility] [address] [place] [address] Shelter Case Manager: Milo Engle, DOGFR/1.73 sq M.predicted among non-blacks MDRD (S/P/Bld) [Vol rate/Area]40 mL/min/{1.73_m2}Low>60[facility] Comment on above:Result Comment: These results [...] secretion.Performed By: #### MAGY JAMES, PT #### [facility] [address] [place] [address] Shelter Case Manager: Milo Engle DOGlucose [Mass/Vol]98 mg/cNExxifc11-08PisgdKettering Health SpringfieldComment on above:Performed By: #### MAGY JAMES, PT #### [facility] [address] [place] [address]. [place] [address] Shelter Case Manager: Milo Engle DOPotassium [Moles/Vol]3.3 mmol/LLow3.7-5.3 [facility] HospitalComselect specialty hospital on above:Performed By: #### MAGY JAMES, PT #### [facility] [address] [place] [address]. [place] [address] Shelter Case Manager: Milo Engle DOSodium [Moles/Vol]142 mmol/IVnnlng000-260 [facility] HospitalComselect specialty hospital on above:Performed By: #### MAGY JAMES, PT #### [facility] [address] [place] [address] Shelter Case Manager: Milo Engle DOUrea nitrogen [Mass/Vol]24 mg/dLHigh8-23[facility] HospitalComment on above:Performed By: #### MAGY JAMES, PT #### [facility] [address] [place] [address] Shelter Case Manager: Milo Engle DOBasic Metabolic Panel w/ Reflex to MGon [id number] gap [Moles/Vol]8 mmol/LLow9 - 16 mmol/LBon SecSt. Anne [email or web address] Health Calcium [Mass/Vol]8.3 mg/dLLow8.6 - 10.4 mg/dLBon Secours Kormeliy HealthChloride [Moles/Vol]110 mmol/LHigh98 - 107 mmol/LBon Secours [facility] Medical [email or web address] HealthCO2 [Moles/Vol] 24 mmol/L20 - 31 mmol/LBon Secours Kormeliy HealthCreatinine [Mass/Vol]1.7 mg/dL High0.7 - 1.2 mg/dLBon Secours [employer] HealthEst, Glom Filt Glgs63Xdz- PINFBon SecSt. Anne [email or web address].com [facility] HospitalComment on above: These results are not [...] secretion. Glucose [Mass/Vol]98 mg/dL74 - 99 mg/dLBon [employer]repid BioinformaticsInterpretation and review of laboratory resultsAbnormalBon Florence Community HealthcareKetto [facility] HospitalPotassium [Moles/Vol]3.3 mmol/LLow3.7 - 5.3 mmol/LBon SecKetto [facility] HospitalSodium [Moles/Vol]142 mmol/L136 - 145 mmol/LBon SecKetto HealthUrea nitrogen [Mass/Vol]24 mg/dLHigh8 - 23 mg/dLBon Secours [facility] Medical Centery [facility] HospitalBon SecWilson Street HospitalCBC with Auto Differentialon [id number] (Bld) [#/Vol]0.06 10*3/uL Bon SecgetFound.iey AphiosBasophils/100 WBC (Bld)1 %0 - 2 %[facility] Kormeliy [facility] HospitalEosinophils (Bld) [#/Vol]0.29 10*3/uLBon [facility] Eosinophils/100 WBC (Bld)5 %High0 - 4 %[facility] Mary'S HospitalErythrocyte distribution width (RBC) [Ratio]20.2 %High11.5 - 14.9 %[facility] Hematocrit (Bld) [Volume fraction]33.1 %Low41.0 - 53.0 %[facility] Hemoglobin (Bld) [Mass/Vol]9.9 g/dLLow13.5 - 17.5 g/dLBon [facility] Immature granulocytes (Bld) [#/Vol]0 10*3/uLBon [facility] HospitalImmature granulocytes/100 WBC (Bld)0 %0Bon Secours St. Mary'S HospitalInterpretation and review of laboratory resultsAbnormalBon Secours St. Mary'S HospitalLymphocytes/100 WBC (Bld)22 %Low24 - 44 %[facility] Mary'S HospitalLymphocytes/100 WBC (Bld)1.28 %[facility] HospitalH (RBC) [Entitic mass]24.3 pgLow26.0 - 34.[address] Mary'S HospitalMCHC (RBC) [Mass/Vol]29.9 g/dLLow31.0 - 37.0 g/dLBon [facility] MCV (RBC) [Entitic vol]81.3 fL80.0 - 100.[address] [facility]'S Hospital Monocytes/100 WBC (Bld)13 %High3 - 12 %[facility] Mary'S HospitalMonocytes/100 WBC (Bld)0.75 %[facility] Mary'S HospitalMorphology Ian (Bld) [Interp]ANISOCYTOSIS PRESENTBon Secours St. Mary'S HospitalMorphology Ian (Bld) [Interp]1+ ECHINOCYTESBon Secours St. Mary'S HospitalMorphology Ian (Bld) [Interp]1+ ELLIPTOCYTESBon Secours St. Mary'S HospitalNeutrophils/100 WBC (Bld)59 %36 - 66 %[facility] Nucleated RBC/100 WBC (Bld) [Ratio]0 %0 per [address] Mary'S Hospital Platelet mean volume (Bld) [Entitic vol]9.6 fL8.0 - 13.[address] Mary'S HospitalPlatelets (Bld) [#/Vol]165 10*3/uLBon [facility] HospitalRBC (Bld) [#/Vol]4.07 10*6/uLLow4.21 - 5.77 m/uLBon Secours St. Mary'S HospitalSegmented neutrophils/100 WBC (Bld)3.42 %Bon [facility] HospitalWBC other (Bld) [#/Vol] 5.8Bon [facility]ver[facility] HealthCBC with Diffon 10-03-2024 Abs. Basophil0.06 k/uLNormal0.00-0.20[facility] HospitalComment on above: Performed By: #### MAGY JAMES, PT #### [facility] [address] [place] [address] Shelter Case Manager: Milo Egnle DOAbs.Imm.Granulocyte0.00 k/uLNormal0.00-0.30 [facility] HospitalComselect specialty hospital on above:Performed By: #### MAGY JAMES, PT #### [facility] [place] [address] Shelter Case Manager: Milo Engle DOAbs.Neutrophil (Seg)3.42 k/uLNormal1.50-8.10 [facility] on above:Performed By: #### MAGY JAMES, PT #### [facility] [address] [place] [address] Shelter Case Manager: Milo Engle DOBasophils/100 WBC (Bld)1 %Normal0-2MercSelect Medical Specialty Hospital - CantonComselect specialty hospital on above:Performed By: #### MAGY JAMES, PT #### [facility] [address] [place] [address] Shelter Case Manager: Milo Engle DOEosinophils (Bld) [#/Vol]0.29 10*3/uLNormal 0.00-0.44[facility] on above:Performed By: #### BMPX, CDP, PT #### [facility] [address] [place] [address] Shelter Case Manager: Milo Engle DOEosinophils/100 WBC (Bld)5 %High0-4[facility] HospitalComselect specialty hospital on above:Performed By: #### ERIKA, MAGY, PT #### [facility] [place] [address] Shelter Case Manager: Milo Engle DOImmature granulocytes/100 WBC (Bld)0 %Normal0 [facility] on above:Performed By: #### MAGY JAMES, PT #### [facility] [address] [place] [address] Shelter Case Manager: Milo Engle DOLymphocytes (Bld) [#/Vol]1.28 10*3/uLNormal 1.10-3.70[facility] HospitalComselect specialty hospital on above:Performed By: #### MAGY JAMES, PT #### [facility] [place] [address] Shelter Case Manager: Milo Engle DOLymphocytes/100 WBC (Bld)22 %Xyp88-81GnsjyChillicothe HospitalComselect specialty hospital on above:Performed By: #### MAGY JAMES, PT #### [facility] [place] [address] Shelter Case Manager: Milo Engle DOMonocytes (Bld) [#/Vol]0.75 10*3/uLNormal 0.10-1.20[facility] on above:Performed By: #### MAGY JAMES, PT #### [facility] [address] [place] [address] Shelter Case Manager: Milo Engle DOMonocytes/100 WBC (Bld)13 %High3-12[facility] on above:Performed By: #### MAGY JAMES, PT #### [facility] [address] [place] [address] Shelter Case Manager: Milo Engle DOMorphology Ian (Bld) [Interp]ANISOCYTOSIS PRESENTNormalChillicothe HospitalComselect specialty hospital on above:Result Comment: 1+ ECHINOCYTES 1+ ELLIPTOCYTESPerformed By: #### MAGY JAMES, PT #### [address] [address] Shelter Case Manager: Milo Engle DONeutrophil (Seg)59 %Ninrip10-45FjwshChillicothe HospitalComselect specialty hospital on above:Performed By: #### MAGY JAMES, PT #### [facility] [address] [place] [address] Shelter Case Manager: Milo Engle DOErythrocyte distribution width (RBC) [Ratio] 20.2 %High11.5-14.9[facility] on above:Performed By: #### MAGY JAMES, PT #### [address] [address] Shelter Case Manager: Milo Engle DOHematocrit (Bld) [Volume fraction]33.1 %Low 41.0-53.0[facility] on above:Performed By: #### MAGY JAMES, PT #### [facility] [address] [place] [address] Shelter Case Manager: Milo Engle DOHemoglobin (Bld) [Mass/Vol]9.9 g/dLLow 13.5-17.5[facility] on above:Performed By: #### MAGY JAMES, PT #### [facility] [address] [place], [place] [address] [place] [address] Shelter Case Manager: Milo Engle DOMCH (RBC) [Entitic mass]24.3 pgLow26.0-34.0 [facility] on above:Performed By: #### MAGY JAMES, PT #### [facility] [place] [address] Shelter Case Manager: Milo Engle DOMCHC (RBC) [Mass/Vol]29.9 g/dLLow31.0-37.0 [facility] on above:Performed By: #### MAGY JAMES, PT #### [facility] [address] [place] [address]. [place] [address] Shelter Case Manager: Milo Engle DOMCV (RBC) [Entitic vol]81.3 fLNormal 80.0-100.0[facility] on above:Performed By: #### MAGY JAMES, PT #### [facility] [address] [place] [address] Shelter Case Manager: Milo Engle DONRBC Automated0.0 per 100 RFXQdmuqe1LsrvrProtestant Deaconess Hospital on above:Performed By: #### MAGY JAMES, PT #### [facility] [address] [place] [address]. [place] [address] Shelter Case Manager: Milo Engle DOPlatelet mean volume (Bld) [Entitic vol]9.6 fLNormal8.0-13.5[facility] on above:Performed By: #### MAGY JAMES, PT #### [facility] [address] [place] [address] Shelter Case Manager: Milo Engle DOPlatelets (Bld) [#/Vol]165 10*3/uLNormal 150-450[facility] on above:Performed By: #### MAGY JAMES, PT #### [facility] [address] [facility] [place] [address] Shelter Case Manager: Milo Engle DORBC (Bld) [#/Vol]4.07 10*6/uLLow4.21-5.77 [facility] on above:Performed By: #### MAGY JAMES, PT #### [facility] [address] [place] [address] Shelter Case Manager: Milo Engle DOWBC (Bld) [#/Vol]5.8 10*3/uLNormal3.5-11.0 [facility] on above:Performed By: #### MAGY JAMES, PT #### [facility] [address] [place] [address]. [place] [address] Shelter Case Manager: Milo Engle DOFerritinon 96-18-4843Oytnxnin [Mass/Vol]54 ng/mLNormalBon [facility] on above:No reference range established for this age/gender.Result Comment: No reference range established for this age/gender.Performed By: #### MAGY JAMES, PT #### [facility] [address] [place] [address]. [place] [address] Shelter Case Manager: Milo Engle DOHaptoglobinon 78-92-3318Ascqxcjxvgm [Mass/Vol]244 mg/kGNzzf82 - 200 mg/dLBon [facility] HospitalHaptoglobin244 mg/hMFsfy64-707KzjhrProtestant Deaconess Hospital on above:Performed By: #### MAGY JAMES, PT #### [facility] [place] [address] Shelter Case Manager: Milo Engle Austin Binding Cap.on 73-96-8400Jyjn [Mass/Vol] 18 ug/eCXto80-621Ezk [facility] on above:Performed By: #### MAGY JAMES, PT #### [facility] [address] [facility] [place] [address] Shelter Case Manager: Milo Engle DO% Fe Saturation8 %Zgo88-36TnxetSelect Medical [facility]Health [facility] on above:Performed By: #### MAGY JAMES, PT #### [facility] [address] [facility] [place] [address] Shelter Case Manager: Milo Engle, DOTotal Fe Binding Dch301 ug/fRFla009-767BrvlpProtestant Deaconess Hospital on above:Performed By: #### MAGY JAMES, PT #### [facility] [address] [facility] [place] [address] Shelter Case Manager: Milo Engle DOUnbound Fe Bind Yfa704 ug/mPRabxww220-152 [facility] on above:Performed By: #### MAGY JAMES, PT #### [facility] [address] [place] [address] Shelter Case Manager: Milo Engle DOIron and TIBCon 84-99-8389Ibqp binding capacity [Mass/Vol]235 ug/aESep636 - 450 ug/dLBon [facility] HospitalIron saturation [Mass fraction]8 %Low20 - 55 %[facility] Mary'S HospitalUIBC217 ug/dL 112 - 347 ug/dLBon [facility] HospitalLEGIONELLA ANTIGEN, URINEon 10-03-2024L. pneumophila 1 Ag IA.rapid Ql (U)NegativeNEGATIVECarilion Roanoke Memorial Hospital on above:L. pneumophila serogroup 1 antigen not detected. A negative result does not exclude infection with Leginella pnemophila serogroup 1 nor does it rule out other microbial-caused respiratory infections of disease caused by other serogroups of Legionella pneumophila. [facility] Mary'S HospitalLactate Dehydrogenaseon 83-37-9024Jagdzdfejghyxn and review of laboratory resultsAbnormalBon Secours Mercy HealthLDH [Catalytic activity/Vol]132 U/QVmg089 - 225 U/LBon [facility] Avera HealthLDH [Catalytic activity/Vol]132 U/RIqz316-906FkfudChillicothe Hospital Comment on above:Performed By: #### BMPX, CDP, PT #### [facility] [address] [facility] [place] [address] Shelter Case Manager: Milo Engle DOLegionella Ag, Uron 47-94-3776Cdyonyrxgd Ag, UrNegativeNormalNEGChillicothe HospitalComment on above:Result Comment: L. pneumophila serogroup 1 antigen not detected. A negative result does not exclude infection with Leginella pnemophila serogroup 1 nor does it rule out other microbial-caused respiratory infections of disease caused by other serogroups of Legionella pneumophila.Performed By: #### OBS #### [facility] [address] [facility] [place] [address] Shelter Case Manager: Milo Engle DOMRSA DNA Probe, Nasalon 63-40-6286Ufbqhqwu Description.NASAL SWABBon [facility] / Avera HealthMRSA, DNA, Nasalon 98-58-5574YBEP, DNA, NasalNegativeGreencastleNEGBon Secours St. Mary'S Hospital Comment on above:NEGATIVE: MRSA DNA not [...] MRSA infections. Performed By: #### OBS #### [facility] [address] [facility] [place] [address] Shelter Case Manager: Milo Engle DOMagnesiumon 86-62-6220Cgoxdlecg [Mass/Vol]2.2 mg/dL1.6 - 2.4 mg/dLBon [facility] / Avera HealthMagnesium [Mass/Vol]2.2 mg/dLNormal1.6-2.4[facility] on above: Performed By: #### BMPX, CDP, PT #### [facility] [address] [place] [address] Shelter Case Manager: Milo Engle DONo Panel Informationon 10-03-2024 Interpretation and review of laboratory resultsAbnoDe Smet Memorial Hospital [id number] Coag (PPP) [Relative time]1.7 {INR} NormalProtestant Deaconess Hospital on above:Result Comment: Therapeutic Range: Moderate Anticoagulant Intensity: INR = 2.0-3.0 High Anticoagulant Intensity: INR = 2.5-3.5Performed By: #### BMPX, CDP, PT #### [facility] [address] [place] [address] Shelter Case Manager: Milo Engle DOPT Coag (PPP) [Time]22.0 sHigh11.8-14.6MMercy Health St[facility] on above:Performed By: #### BMPX, CDP, PT #### [facility] [address] [place] [address] Shelter Case Manager: Milo Engle DOProtime-INRon 06-72-3745WRS Coag (PPP) [Relative time]1.7 {INR}[facility] on above: Therapeutic Range: Moderate Anticoagulant Intensity: INR = 2.0-3.0 High Anticoagulant Intensity: INR = 2.5-3.5 Interpretation and review of laboratory resultsAbMary [facility] Healthcare PT Coag (PPP) [Time]22.0 sHighBon [facility] Retic Counton 24-57-3793Pjzmpqkx Retic0.038 M/uLNormal0.030-0.080[facility] on above:Performed By: #### BMPX, CDP, PT #### [facility] [address] [facility] [place] [address] Shelter Case Manager: Milo Engle DOIRF11.9 %Normal2.7-18.3[facility] on above:Performed By: #### BMPX, CDP, PT #### [facility] [address] [facility] [place] [address] Shelter Case Manager: Milo Engle DORetic Count0.9 %Normal0.5-2.5[facility] on above:Performed By: #### BMPX, CDP, PT #### [facility] [address] [facility] [place] [address] Shelter Case Manager: Milo Engle DORetic Fzvotjrxcn06.4 pgLow28.2-35.7[facility] on above:Performed By: #### BMPX, CDP, PT #### [facility] [address] [facility] [place] [address] Shelter Case Manager: Milo Engle DOReticulocyteson 03-46-4924Jypnznhx reticulocytes/Total reticulocytes (Bld)11.9 %2.7 - 18.3 %[facility] Mary'S HospitalInterpretation and review of laboratory resultsAbnormalBon Secours St. Mary'S HospitalRetic Uqafxsxveq42.4 pgLow28.2 - 35.[address] [facility] Reticulocytes (Bld) [#/Vol]0.038 10*3/uLBon Secours St. [facility]'S [facility] Reticulocytes/100 RBC (Bld)0.9 %0.5 - 2.5 %[facility] Children's HospitalVitamin B12 & Folateon 22-40-5483Lnjdunhjv (Vitamin B12) [Mass/Vol] 377 pg/mL232 - 1245 pg/mLBon Secours St. Mary'S HospitalFolate [Mass/Vol]28.5 ng/mLHigh 4.8 - 24.2 ng/mLBon [facility] HospitalInterpretation and review of laboratory resultsAbnormalInova Children's HospitalBasic Metabolic Panelon 79-33-9129Jbnwa gap [Moles/Vol]11 mmol/L9 - 16 mmol/LBon [facility] HospitalCalcium [Mass/Vol]8.8 mg/dL8.6 - 10.4 mg/dLBon [facility] Chloride [Moles/Vol]106 mmol/L98 - 107 mmol/LBon [facility] HospitalCO2 [Moles/Vol]24 mmol/L20 - 31 mmol/LBon [facility] HospitalCreatinine [Mass/Vol] 1.9 mg/dLHigh0.7 - 1.2 mg/dLBon [facility] HospitalEst, Glom Filt Lxry77Zll- PINFBon [facility] City HospitalComment on above: These results are not [...] that affects renal tubular secretion. Glucose [Mass/Vol]105 mg/tJDfzp64 - 99 mg/dLBon [facility] Interpretation and review of laboratory resultsAbnoLewisGale Hospital Montgomery Potassium [Moles/Vol]3.8 mmol/L3.7 - 5.3 mmol/LBon [facility] HospitalSodium [Moles/Vol]141 mmol/L136 - 145 mmol/LBon [facility] HospitalUrea nitrogen [Mass/Vol]22 mg/dL8 - 23 mg/dLBon [facility] Edwin Shawsic Metabolic Profon 09-66-5652Fczwx gap [Moles/Vol]11 mmol/LNormal9-16[facility] Comment on above:Performed By: #### CDP, BMP, PT, TSHX #### [facility] [address] [place] [address] Shelter Case Manager: Milo Engle DOCalcium [Mass/Vol]8.8 mg/dLNormal8.6-10.4 [facility] HospitalComment on above:Performed By: #### CDP, BMP, PT, TSHX #### [facility] [address] [facility] [place] [address] Shelter Case Manager: Milo Engle DOChloride [Moles/Vol]106 mmol/DLdmbib70-595 [facility] HospitalComment on above:Performed By: #### CDP, BMP, PT, TSHX #### [facility] [address] [facility] [place] [address] Shelter Case Manager: Milo Engle DOCO2 [Moles/Vol]24 mmol/KExkhhj72-84CudgeChillicothe HospitalComment on above:Performed By: #### CDP, BMP, PT, TSHX #### [facility] [facility] [place] [address] Shelter Case Manager: Milo Engle DOCreatinine [Mass/Vol]1.9 mg/dLHigh0.7-1.2 [facility] HospitalComment on above:Performed By: #### MAGY, BMP, PT, TSHX #### [facility] [address] [facility] [place] [address] Shelter Case Manager: Milo Engle DOGFR/1.73 sq M.predicted among non-blacks MDRD (S/P/Bld) [Vol rate/Area]35 mL/min/{1.73_m2}Low>60[facility] Comment on above:Result Comment: These results [...] By: #### CDP, BMP, PT, TSHX #### [facility] [address] [facility] [place] [address] Shelter Case Manager: Milo Engle, DOGlucose [Mass/Vol]105 mg/rRQlqo16-89VxtkiKettering Health SpringfieldComselect specialty hospital on above:Performed By: #### CDP, BMP, PT, TSHX #### [facility] [address] [place] [address] Shelter Case Manager: Milo Engle, DOPotassium [Moles/Vol]3.8 mmol/LNormal3.7-5.3 [facility] HospitalComselect specialty hospital on above:Performed By: #### CDP, BMP, PT, TSHX #### [facility] [place] [address] Shelter Case Manager: Milo Engle, DOSodium [Moles/Vol]141 mmol/JHsymwx796-900 [facility] HospitalComselect specialty hospital on above:Performed By: #### CDP, BMP, PT, TSHX #### [facility] [address] [place] [address] Shelter Case Manager: Milo Engle DOUrea nitrogen [Mass/Vol]22 mg/dLNormal8-23 [facility] HospitalComselect specialty hospital on above:Performed By: #### CDP, BMP, PT, TSHX #### [facility] [address] [place] [address] Shelter Case Manager: Milo Engle, DOCBC with Auto Differentialon 10-02-2024 Basophils (Bld) [#/Vol]0 10*3/uLBon Secours [facility] Surgical HospitalBasophils/100 WBC (Bld)0 %0 - 2 %[facility] HospitalEosinophils (Bld) [#/Vol]0.07 10*3/uLBon [facility]ours [facility] Surgical HospitalEosinophils/100 WBC (Bld)1 %0 - 4 %[facility] Erythrocyte distribution width (RBC) [Ratio]20.6 %High11.5 - 14.9 %Bon [facility] HospitalHematocrit (Bld) [Volume fraction]38.8 %Low41.0 - 53.0 %[facility] HospitalHemoglobin (Bld) [Mass/Vol]11 g/dLLow13.5 - 17.5 g/dLBon [facility]ours [facility] Surgical HospitalImmature granulocytes (Bld) [#/Vol]0.07 10*3/uLBon [facility] HospitalImmature granulocytes/100 WBC (Bld)1 %Ccik0Jga [facility] Interpretation and review of laboratory resultsAbnormalBon SecLafayette General Southwest Health Lymphocytes/100 WBC (Bld)13 %Low24 - 44 %[facility] HospitalLymphocytes/100 WBC (Bld)0.95 %LowBon SecAultman Alliance Community HospitalH (RBC) [Entitic mass]24.3 pgLow 26.0 - 34.0 pgBon SecAultman Alliance Community HospitalHC (RBC) [Mass/Vol]28.4 g/dLLow31.0 - 37.0 g/dLBon SecAultman Alliance Community HospitalV (RBC) [Entitic vol]85.7 fL80.0 - 100.0 fL Bon SecLafayette General Southwest HealthMonocytes/100 WBC (Bld)14 %High3 - 12 %[facility] HospitalMonocytes/100 WBC (Bld)1.02 %[facility] HealthMorphology Ian (Bld) [Interp]ANISOCYTOSIS PRESENTBon SecWilson Street HospitalMorphology Ian (Bld) [Interp]1+ ELLIPTOCYTESBon SecWilson Street HospitalMorphology Ian (Bld) [Interp]1+ ECHINOCYTESBon SecWilson Street HospitalNeutrophils/100 WBC (Bld)71 %High36 - 66 %[facility] Mary'S HospitalNucleated RBC/100 WBC (Bld) [Ratio]0 %0 per 100 WBCBon [facility] HospitalPlatelet mean volume (Bld) [Entitic vol]10 fL8.0 - 13.5 fL Bon SecLafayette General Southwest HealthPlatelets (Bld) [#/Vol]245 10*3/uLBon [facility]ours [facility] HealthRBC (Bld) [#/Vol]4.53 10*6/uL4.21 - 5.77 m/uLBon [facility] Segmented neutrophils/100 WBC (Bld)5.19 %Bon [facility] HospitalWBC other (Bld) [#/Vol]7.3Bon [facility] HospitalBon [facility] HospitalCBC with Diffon [id number]. Basophil0.00 k/uLNormal0.00-0.20[facility] HospitalComment on above:Performed By: #### CDP, BMP, PT, TSHX #### [facility] [address] [facility]. [place] [address] Shelter Case Manager: Milo Engle DOAbs.Imm.Granulocyte0.07 k/uLNormal0.00-0.30 [facility]Comselect [facility] on above:Performed By: #### CDP, BMP, PT, TSHX #### [facility] [address] [place] [address]. [place] [address] Shelter Case Manager: Milo Engle DOAbs.Neutrophil (Seg)5.19 k/uLNormal1.50-8.10 [facility]Com[facility] on above:Performed By: #### CDP, BMP, PT, TSHX #### [facility] [address] [place] [address]. [place] [address] Shelter Case Manager: Milo Engle DOBasophils/100 WBC (Bld)0 %Normal0-2MKettering Health SpringfieldComselect specialty hospital on above:Performed By: #### CDP, BMP, PT, TSHX #### [facility] [address] [place] [address] Shelter Case Manager: Milo Engle DOEosinophils (Bld) [#/Vol]0.07 10*3/uLNormal 0.00-0.44[facility] HospitalComselect specialty hospital on above:Performed By: #### CDP, BMP, PT, TSHX #### [facility] [address] [facility] [place] [address] Shelter Case Manager: Milo Engle DOEosinophils/100 WBC (Bld)1 %Normal0-4[facility] on above:Performed By: #### CDP, BMP, PT, TSHX #### [facility] [place] [address] Shelter Case Manager: Milo Engle DOImmature granulocytes/100 WBC (Bld)1 %High0 [facility] on above:Performed By: #### CDP, BMP, PT, TSHX #### [facility] [address] [place] [address]. [place] [address] Shelter Case Manager: Milo Engle DOLymphocytes (Bld) [#/Vol]0.95 10*3/uLLow 1.10-3.70[facility] on above:Performed By: #### CDP, BMP, PT, TSHX #### [facility] [address] [place] [address] Shelter Case Manager: Milo Engle DOLymphocytes/100 WBC (Bld)13 %Drk95-95EpuvjProtestant Deaconess Hospital on above:Performed By: #### CDP, BMP, PT, TSHX #### [facility] [address] [place] [address]. [place] [address] Shelter Case Manager: Milo Engle DOMonocytes (Bld) [#/Vol]1.02 10*3/uLNormal 0.10-1.20[facility] on above:Performed By: #### CDP, BMP, PT, TSHX #### [facility] [address] [place] [address] Shelter Case Manager: Milo Engle DOMonocytes/100 WBC (Bld)14 %High3-12Mer[facility] Panola HospitalComment on above:Performed By: #### CDP, BMP, PT, TSHX #### [facility] [place] [address] Shelter Case Manager: Milo Engle DOMorphology Ian (Bld) [Interp]ANISOCYTOSIS PRESENTNormalProtestant Deaconess Hospital on above:Result Comment: 1+ ELLIPTOCYTES 1+ ECHINOCYTESPerformed By: #### CDP, BMP, PT, TSHX #### [facility] [address] [place] [address] Shelter Case Manager: Milo Engle DONeutrophil (Seg)71 %Wcun22-43OdftjProtestant Deaconess Hospital on above:Performed By: #### CDP, BMP, PT, TSHX #### [facility] [address] [place] [address] Shelter Case Manager: Milo Engle DOErythrocyte distribution width (RBC) [Ratio] 20.6 %High11.5-14.9[facility] on above:Performed By: #### CDP, BMP, PT, TSHX #### [facility] [address] [place] [address] Shelter Case Manager: Milo Engle DOHematocrit (Bld) [Volume fraction]38.8 %Low 41.0-53.0[facility] on above:Performed By: #### CDP, BMP, PT, TSHX #### [facility] [address] [place] [address] Shelter Case Manager: Milo Engle DOHemoglobin (Bld) [Mass/Vol]11.0 g/dLLow 13.5-17.5[facility] on above:Performed By: #### CDP, BMP, PT, TSHX #### [facility] [address] [place] [address] Shelter Case Manager: Milo Engle DOMCH (RBC) [Entitic mass]24.3 pgLow26.0-34.0 [facility] on above:Performed By: #### CDP, BMP, PT, TSHX #### [facility] [address] [place] [address] Shelter Case Manager: Milo Engle DOMCHC (RBC) [Mass/Vol]28.4 g/dLLow31.0-37.0 [facility] on above:Performed By: #### CDP, BMP, PT, TSHX #### [facility] [address] [place] [address]. [place] [address] Shelter Case Manager: Milo Engle DOMCV (RBC) [Entitic vol]85.7 fLNormal 80.0-100.0[facility] HospitalComselect specialty hospital on above:Performed By: #### MAGY, BMP, PT, TSHX #### [facility] [address] [place] [address] Shelter Case Manager: Milo Engle DONRBC Automated0.0 per 100 QHOLuordo5MgmjzProtestant Deaconess Hospital on above:Performed By: #### CDP, BMP, PT, TSHX #### [facility] [address] [place] [address]. [place] [address] Shelter Case Manager: Milo Engle DOPlatelet mean volume (Bld) [Entitic vol]10.0 fLNormal8.0-13.5[facility] on above:Performed By: #### MAGY, BMP, PT, TSHX #### [facility] [address] [place] [address] Shelter Case Manager: Milo Engle DOPlatelets (Bld) [#/Vol]245 10*3/uLNormal 150-450[facility] on above:Performed By: #### CDP, BMP, PT, TSHX #### [facility] [place] [address] Shelter Case Manager: Milo Engle DORBC (Lawrence) [#/Vol]4.53 10*6/uLNormal4.21-5.77 [facility] on above:Performed By: #### CDP, BMP, PT, TSHX #### [facility] [address] [place] [address]. [place] [address] Shelter Case Manager: Milo Engle DOWBC ([place]) [#/Vol]7.3 10*3/uLNormal3.5-11.0 [facility] on above:Performed By: #### CDP, BMP, PT, TSHX #### [facility] [address] [place] [address]. [place] [address] Shelter Case Manager: Milo Engle DOMRSA, DNA, Nasalon 44-19-7369Tukbmcxf Description.NASAL SWABNormalChillicothe HospitalComselect specialty hospital on above:Performed By: #### OBS #### [facility] [address] [place] [address] Shelter Case Manager: Milo Engle DONo Panel [facility] 63-19-1357[facility] 81-30-6839PSF Coag (PPP) [Relative time]1.9 {INR}NormalProtestant Deaconess Hospital on above:Result Comment: Therapeutic Range: Moderate Anticoagulant Intensity: INR = 2.0-3.0 High Anticoagulant Intensity: INR = 2.5-3.5Performed By: #### CDP, BMP, PT, TSHX #### [facility] [address] [place] [address] Shelter Case Manager: Milo Engle DOPT Coag (PPP) [Time]23.2 sHigh11.8-14.6MMercy Health St[facility] on above:Performed By: #### CDP, BMP, PT, TSHX #### [facility] [address] [place] [address] Shelter Case Manager: Milo Engle DOProcalcitoninon 89-75-3576Ubymuuuywhpox [Mass/Vol]0.08 ng/mL0.00 - 0.09 ng/mLBon [facility] on above: Suspected Sepsis: <0.50 ng/mL [...] entered into the Change in Procalcitonin Calculator (www.boeirc-bqg-qxldajnazj.Insmed) to determine the patient's Mortality Risk Prognosis In healthy neonates, plasma Procalcitonin (PCT) concentrations increase gradually after , reaching peak values at about 24 hours of age then decrease to normal values below 0.5 ng/mL by 48-72 hours of age. Bon [facility] City HospitalProcalcitonin0.08 ng/mLNormal0.00-0.09MerSelect [facility] on above:Result Comment: Suspected Sepsis: <0.50 ng/mL [...] entered into the Change in Procalcitonin Calculator (www.ermlcj-emw-cijvffqsuj.com) to determine the patient's Mortality Risk Prognosis In healthy neonates, plasma Procalcitonin (PCT) concentrations increase gradually after , reaching peak values at about 24 hours of age then decrease to normal values below 0.5 ng/mL by 48-72 hours of age.Performed By: #### MYCM #### [address] [address] Shelter Case Manager: Loi Oliver MD #### PRCAL #### [facility] [address] [place] [address] Shelter Case Manager: Milo Engle DOProtime-INRon 01-25-8327VQD Coag (PPP) [Relative time]1.9 {INR}[facility] on above: Therapeutic Range: Moderate Anticoagulant Intensity: INR = 2.0-3.0 High Anticoagulant Intensity: INR = 2.5-3.5 Interpretation and review of laboratory resultsAbMary [facility] Healthcare PT Coag (PPP) [Time]23.2 sHighBon [facility] Resp Viral Panelon [id number] detectedNormalNOTDETMMercy Health St. [facility] on above:Performed By: #### RVP #### [facility] [place] [address] Shelter Case Manager: Milo Engle DO [employer] [address] [address] Shelter Case Manager: Christophe Correia.parapertussisNot detectedNormalNOTDET [facility] on above:Performed By: #### RVP #### [facility] [address] [place] [address] Shelter Case Manager: Milo Engle DO [address] [address] Shelter Case Manager: Diya Correialla pertussisNot detectedNormalNOTDET [facility] HospitalComselect specialty hospital on above:Performed By: #### RVP #### [facility] [address] [place] [address] Shelter Case Manager: Milo Engle [address] [address] Shelter Case Manager: Kim Correiaamyd.pneumoniaeNot detectedNormalNOTDERegency Hospital CompanyComselect specialty hospital on above:Performed By: #### RVP #### [facility] [address] [place] [address] Shelter Case Manager: Milo Engle [address] [address] Shelter Case Manager: Marge Correiaavirus 229ENot detectedNormalNOTPremier Health Upper Valley Medical CenterComselect specialty hospital on above:Performed By: #### RVP #### [facility] [address] [place] [address] Shelter Case Manager: Milo Engle [address] [address] Shelter Case Manager: RAJNI Correiaoronavirus [id number] detectedNormalNOTDERegency Hospital CompanyComselect specialty hospital on above:Performed By: #### RVP #### [facility] [address] [place] [address] Shelter Case Manager: Milo Engle [address] [address] Shelter Case Manager: RAJNI Correiaoronavirus [id number] detectedNormalNOTDERegency Hospital CompanyComselect specialty hospital on above:Performed By: #### RVP #### [facility] [address] [place] [address] Shelter Case Manager: Milo Engle [address] [address] Shelter Case Manager: Reji Correia [id number] detectedNormalNOTDEGuernsey Memorial Hospital on above:Performed By: #### RVP #### [facility] [address] [place] [address] Shelter Case Manager: Milo Engle [address] [address] Shelter Case Manager: Yoselin Correia MetapneumoDetectedAbnormalNOTDERegency Hospital CompanyComselect specialty hospital on above:Performed By: #### RVP #### [facility] [address] [place] [address] Shelter Case Manager: Milo Engle [employer] [address] [address] Shelter Case Manager: Ronni Correia ANot detectedNormalNOTDERegency Hospital CompanyComselect specialty hospital on above:Performed By: #### RVP #### [facility] [address] [place] [address] Shelter Case Manager: Milo Engle [employer] [address] [address] Shelter Case Manager: Ronni Correia BNot detectedNormalNOTDERegency Hospital CompanyComselect specialty hospital on above:Performed By: #### RVP #### [facility] [address] [place] [address] Shelter Case Manager: Milo Engle [employer] [address] [address] Shelter Case Manager: Yaritza Correia.pneumoniaeNot detectedNormalNOTDEGuernsey Memorial Hospital on above:Result Comment: Performed by multiplexed nucleic acid assay.Performed By: #### RVP #### [facility] [address] [place] [address] Shelter Case Manager: Milo Engle DO [address] [address] Shelter Case Manager: Geo Correia 1Not detectedNormalOhioHealth Marion General Hospital on above:Performed By: #### RVP #### [facility] [address] [place] [address] Shelter Case Manager: Milo Engle [address] [address] Shelter Case Manager: Geo Correia 2Not detectedNormKeenan Private Hospital on above:Performed By: #### RVP #### [facility] [address] [place] [address] Shelter Case Manager: Milo Engle [address] [address] Shelter Case Manager: Geo Correia 3Not detectedNormKeenan Private Hospital on above:Performed By: #### RVP #### [facility] [address] [place] [address] Shelter Case Manager: Milo Engle [address] [place] [address] Shelter Case Manager: Geo Correia 4Not detectedNormnmNOTProMedica [facility] on above:Performed By: #### RVP #### [facility] [address] [place] [address] Shelter Case Manager: Milo Engle [address] [address] Shelter Case Manager: JUDITH Correiaesp Syncytial VirusNot detectedNoPremier Health Miami Valley HospitalComselect specialty hospital on above:Performed By: #### RVP #### [facility] [address] [place] [address] Shelter Case Manager: Milo Engle [address] [address] Shelter Case Manager: JUDITH Correiahino/EnterovirusNot detectedNormKeenan Private Hospital on above:Performed By: #### RVP #### [facility] [address] [place] [address] Shelter Case Manager: Milo Engle [address] [address] Shelter Case Manager: MATHIEU Correia-CoV-2 (COVID-19) RNA KARI+probe Ql (Unsp spec)Not detectedNoFayette County Memorial HospitalComselect specialty hospital on above: Performed By: #### RVP #### [facility] [address] [place] [address] Shelter Case Manager: Milo Engle [address] [address] Shelter Case Manager: Mary Correia:.NASOPHARYNGEAL SWABNormalMerSelect Medical [facility] Rehabilitation Hospital - DublinComselect specialty hospital on above:Performed By: #### RVP #### [facility] [address] [place] [address] Shelter Case Manager: Milo Engle [address] [address] Shelter Case Manager: Elisa Correia Panel, Molecular, with COVID-19 (Restricted: peds pts or suitable admitted adults)on 29-33-1675Bxtgpasxpi DNA KARI+non-probe Ql (Nph)Not detectedNot DetectedBon SecWilson Street HospitalB. parapertussis [id number] DNA KARI+non-probe Ql (Nph)Not detectedNot DetectedBon Secours [facility] Valley Surgical HospitalB. pertussis DNA KARI+probe Ql (Unsp spec)Not detectedNot DetectedBon SecWilson Street HospitalC. pneumoniae DNA KARI+non-probe Ql (Nph)Not detectedNot DetectedBon Secours [facility] Valley Surgical HospitalFLUAV RNA KARI+non-probe Ql (Nph)Not detectedNot DetectedBon Secours [facility] Valley Surgical HospitalFLUBV RNA KARI+non-probe Ql (Nph)Not detectedNot DetectedBon [facility]ours [facility] Surgical HospitalHCoV 229E RNA KARI+non-probe Ql (Nph) Not detectedNot DetectedBon Secours [facility] Valley Surgical HospitalHCoV HKU1 RNA KARI+non-probe Ql (Nph)Not detectedNot DetectedBon SecWilson Street HospitalHCoV NL63 RNA KARI+non-probe Ql (Nph)Not detectedNot DetectedBon SecWilson Street HospitalHCoV OC43 RNA KARI+non- probe Ql (Nph)Not detectedNot DetectedBon SecWilson Street HospitalhMPV RNA KARI+non- probe Ql (Nph)DetectedAbnormalNot DetectedBon [facility] City HospitalInterpretation and review of laboratory resultsAbnormalBon SecWilson Street HospitalM. pneumoniae DNA KARI+non-probe Ql (Nph)Not detectedNot DetectedBon [facility] Comment on above:Performed by multiplexed nucleic acid assay.Parainfluenza virus 1 RNA KARI+non-probe Ql (Nph)Not detectedNot DetectedBon [facility] Parainfluenza virus 2 RNA KARI+non-probe Ql (Nph)Not detectedNot DetectedBon SecWilson Street HospitalParainfluenza virus 3 RNA KARI+non-probe Ql (Nph)Not detected Not DetectedBon SecWilson Street HospitalParainfluenza virus 4 RNA KARI+non-probe Ql (Nph)Not detectedNot DetectedBon SecWilson Street HospitalRhinovirus+Enterovirus RNA KARI+non-probe Ql (Nph)Not detectedNot DetectedBon SecWilson Street HospitalRSV RNA KARI+non-probe Ql (Nph)Not detectedNot DetectedBon [facility] City HospitalSARS-CoV-2 (COVID-19) RNA KARI+non-probe Ql (Nph)Not detectedNot DetectedBon [facility] City HospitalSpecimen Description.NASOPHARYNGEAL SWABBon [facility] City HospitalBon SecThe [facility] reflex to FT4on 34-22-5954AWA Qn1.29 m[IU]/LBon [facility] w/reflex to FT4on 45-34-0092Bjbrvas Stim. Horm.1.29 uIU/mLNormal 0.27-4.20MerSelect Medical OhioHealth Rehabilitation Hospital - DublinComment on above:Performed By: #### CDP, BMP, PT, TSHX #### [facility] [address] [place] [address] Shelter Case Manager: Milo Engle DOUrinalysis w/ Microon 22-03-4290QehymporPJJ AbnormalMetroHealth Cleveland Heights Medical CenterComselect specialty hospital on above:Performed By: #### OBS #### [facility] [address] [place] [address] Shelter Case Manager: Milo Engle DOBilirubin, SemiQt,UrNegativeNormalNEGChillicothe HospitalComselect specialty hospital on above:Performed By: #### OBS #### [facility] [address] [place] [address]. [place] [address] Shelter Case Manager: Milo Engle DOBlood, UrineTRACEAbnormalNEGChillicothe HospitalComselect specialty hospital on above:Performed By: #### OBS #### [facility] [address] [place] [address]. [place] [address] Shelter Case Manager: Milo Engle DOCasts6 TO 9AbnormalMetroHealth Cleveland Heights Medical CenterComselect specialty hospital on above:Performed By: #### OBS #### [facility] [address] [place] [address] Shelter Case Manager: Milo Engle DOClarity (U)ClearNormalCLEARChillicothe HospitalComselect specialty hospital on above:Performed By: #### OBS #### [facility] [address] [place] [address] Shelter Case Manager: Milo Engle DOColor (U)YellowNormalYELMercy Marietta Memorial HospitalComselect specialty hospital on above:Performed By: #### OBS #### [facility] [address] [place], [place] [address] [place] [address] Shelter Case Manager: Milo Engle DOEpithelial cells LM Ql (Urine sed)0 TO 2 NormalMerSelect Medical OhioHealth Rehabilitation Hospital - DublinComselect specialty hospital on above:Performed By: #### OBS #### [facility] [address] [place] [address] Shelter Case Manager: Milo Engle DOGlucose Ql (U)NegativeNormalNEGMerSelect Medical OhioHealth Rehabilitation Hospital - DublinComselect specialty hospital on above:Performed By: #### OBS #### [facility] [address] [place] [address] Shelter Case Manager: Milo Engle DOKetones Ql (U)NegativeNormalNEGMerSelect Medical OhioHealth Rehabilitation Hospital - DublinComselect specialty hospital on above:Performed By: #### OBS #### [facility] [address] [place] [address] Shelter Case Manager: Milo Engle DOLeukocyte esterase Test strip Ql (U)MOD AbnormalNEGMerSelect Medical OhioHealth Rehabilitation Hospital - DublinComselect specialty hospital on above:Performed By: #### OBS #### [facility] [address] [place] [address] Shelter Case Manager: Milo Engle DONitrite,UrPositiveAbnormalNEGMerSelect Medical OhioHealth Rehabilitation Hospital - DublinComselect specialty hospital on above:Performed By: #### OBS #### [facility] [address] [place] [address] Shelter Case Manager: Milo Engle DOPH,Ur6.1Exvsao0.0-8.0MerSelect Medical OhioHealth Rehabilitation Hospital - DublinComselect specialty hospital on above:Performed By: #### OBS #### [facility] [address] [place] [address] Shelter Case Manager: Milo Engle DOProtein Ql (U)1+ mg/dLAbnormalNEGProtestant Deaconess Hospital on above:Performed By: #### OBS #### [facility] [address] [place] [address] Shelter Case Manager: Milo Engle DOSpec. [place],Ur1.693Xomngx6.000-1.030Ch[facility] HospitalComselect specialty hospital on above:Performed By: #### OBS #### [facility] [address] [place] [address] Shelter Case Manager: Milo Engle DOUrine RBC's6 TO 5FaxmoiwiC41JedsnProtestant Deaconess Hospital on above:Performed By: #### OBS #### [facility] [address] [place] [address] Shelter Case Manager: Milo Engle DOUrine WBC's51 TO 353SckmfzfvH28QaeqqChillicothe HospitalComselect specialty hospital on above:Performed By: #### OBS #### [facility] [address] [place] [address] Shelter Case Manager: Milo Engle DOUrobilinogen,UrNormalNormal0.0-1.0[facility] HospitalComselect specialty hospital on above:Performed By: #### OBS #### [facility] [address] [place] [address] Shelter Case Manager: Milo Engle DOUrinalysis with Microscopicon 10-02-2024 Bacteria LM Ql (Urine sed)FEWAbnormalNoneBon [facility] HealthBilirubin Ql (U)NegativeNEGATIVEBon [facility]ours [facility] Valley Surgical HospitalCasts LM.LPF (Urine sed) [#/Area]6 TO 9AbnormalNone /LPFBon Secours Ohio Valley Surgical HospitalClarity (U)ClearClearBon [facility]ours [facility]cy HealthColor (U)YellowYellowBon [facility] HospitalEpithelial cells LM.HPF (Urine sed) [#/Area]0 TO 2/HPFBon [facility] HospitalGlucose Test strip (U) [Mass/Vol]NegativeNEGATIVE mg/dLBon [facility] HospitalHemoglobin Auto test strip Ql (U)TRACEAbnormalNEGATIVEBon [facility] HealthInterpretation and review of laboratory resultsAbnormalBon [facility] HealthKetones (U) [Mass/Vol]NegativeNEGATIVE mg/dLBon [facility] HospitalLeukocyte esterase Test strip Ql (U)MODAbnormalNEGATIVEBon [facility] HealthNitrite Ql (U)Positive AbnormalNEGATIVEBon [facility] HospitalpH (U)6 [pH]5.0 - 8.0Bon [facility] HospitalProtein (U) [Mass/Vol]1+AbnormalNEGATIVE mg/dLBon [facility] HospitalRBC LM.HPF (Urine sed) [#/Area]6 TO 8Zqirbgza6 TO 2 /HPFBon [facility] Specific gravity (U) [Rel density]1.0171.000 - 1.030Bon [facility] Urobilinogen Qn (U)Normal0.0 - 1.0 EU/dLBon [facility] City HospitalWBC LM.HPF (Urine sed) [#/Area]51 TO 129Ctbxvwdi9 TO 5 /HPFBon [facility]ver[facility] HealthUrine Cultureon 17-01-7393Cfupirct identified Cx Nom (U) ORGANISM: Klebsiella oxytoca (O:KLEOXY) [place] Count >100,000 ORGANISM: Enterobacter cloacae complex (O:ENTCLOCPLX) [place] Count >100,000 Aerobic RITESH Charge (NMIC56) SUSCEPTIBILITY [...] RESISTANT TO ALL B-LACTAM DRUGS. PERFORMED BY: [facility] [address] [place] [address] PATHOLOGIST PORTAINER OPERATOR ED CRUZ M.D.Sh[facility]orda Physician GroupComment on above: Performed By: #### JHONNY LOZANO #### [facility] [address] [place] [address] USAUrine cultureOrdered By: Robe Hansen on 70-55-5220Uztkujbd identified Cx Nom (U)AbnormalPromedica Memorial HospitalBacteria identified Cx Nom (U)AbnormalPromedica Memorial HospitalUS aortaon 12-56-2987BH aortaCleveland Clinic [facility] [address] [place], [place] [address] Ultrasound Report Signed Patient: Alex Anderson MR#: [id number] 36 : 1945 Acct:[id number] Age/Sex: 78 / M ADM Date: 09/23/24 Loc: [facility] Room: Type: DEP CLI Attending Dr: Margarito Valentine MD Ordering Provider: [...] Valentine MD,FACS,FSVS 09/30/2024 8:31 AM Dictation Location: [place] [address] Tech: Juani Steward Transcribed By: LIONEL 09/30/24830 Dictated By: Margarito Valentine MD 09/30/248[address] Signed By: 09/30/24 0831ShorePoint Health Pun[facility] Gorda Physician GroupUS arterial duplex LE BIon 93-43-2935DP arterial duplex LE [facility] [address] [place] [address] Ultrasound Report Signed Patient: Alex Anderson MR#: [id number] 36 : 1945 Acct:[id number] Age/Sex: 78 / M ADM Date: 09/23/24 Loc: [facility] Room: Type: DEP CLI Attending Dr: Margarito Valentine MD Ordering Provider: [...] Valentine MD,FACS,FSVS 09/30/2024 8:30 AM Dictation Location: [place] [address] Tech: Juani Nichelle Transcribed By: [facility] 09/30/24829 Dictated By: Margarito Valentine MD 09/30/2429 Signed By: 09/30/24829[facility] Physician GroupUrine Cultureon 09-28-2024 Bacteria identified Cx Nom (U)ORGANISM: Enterobacter cloacae complex (O:ENTCLOCPLX) [place] Count >100,000 ORGANISM: Enterobacter cloacae complex (O:ENTCLOCPLX) [place] Count >100,000 Aerobic [facility] Charge (NMIC56) SUSCEPTIBILITY ORGANISM: O:ENTCLOCPLX ANTIBIOTIC INTERPRETATION [...] RESISTANT TO ALL B-LACTAM DRUGS. PERFORMED BY: [place] [address] PATHOLOGIST PORTAINER OPERATOR ED CRUZ M.D.[facility] Physician GroupComment on above: Performed By: #### MAISHA LOZANOU #### [place] [address] USAUrine cultureOrdered By: Talya Bo on 74-58-4878Kotofpab identified Cx Nom (U)AbnormalPromedica Memorial HospitalUrinalysis macro (dipstick) panel (U)on 13-77-2767Fqsxpvses, UANegativeNegative - 4(70) +++ mg/dL NOMS HealthcareBlood, [...] - 12 mg/dLNOMS HealthcareNOMS HealthcareECG 12 Leadon 12-63-9513UNQ revealed normal sinus rhythm, right axis deviation, IVCD, septal myocardial infarction of undetermined age, diffuse repolarization abnormalities, abnormal ECGCPACSOhioHealth Marion General Hospital Work Phone: ambulatory Visit Summaryon 25-35-0529Zmteemmtwp Visit SummaryAmbulatory Visit Summary ALEX ANDERSON :1945 [...] Appointments Friday. 2024 2:00 PM EDT With: ABRIL CASILLAS, Katia Macias Where: [facility] [address] [place] [address]- Medications What How Much When Instructions Unchanged [...] you for choosing us for your care. [facility] GlenbeighITPon 35-99-1357[address] [address] Cardiac Rehab Report Signed Patient: ALEX ANDERSON MR#: [id number] : 1945 Acct:[id number] Age/Sex: 78 / M ADM Date: 08/23/24 Loc: CR Attending Dr: TEO AL Ordering Physician: Martita Garnica D.O. Date of Service: 08/23/24 Procedure(s): ITP Accession Number(s): [id number] cc: [facility] Test Date: 2024-08-23 Pat Name: ALEX ANDERSON Department: Room: - Gender: Male Neuro Ophthalmologist: : 1945 Requested By: MARTITA GARNICA Order Number: [id number] Silverio CASILLAS: MARTITA GARNICA Interpretive Statements Session Date: Electronically Signed On 09-05-2024 19:58:42 EDT by MARTITA GARNICA Dictated By: Martita Garnica D.O. Signed By: 09/05/24195809/05/241958 DD/ [facility] TD/TT: Title Vehicle Service Attendant:TBHRadiology, Radiologist, - 09/05/2024 [place] [address] Cardiac Rehab Report Signed Patient: ALEX ANDERSON MR#: [id number] : 1945 Acct:[id number] Age/Sex: 78 / M ADM Date: 08/23/24 Loc: CR Attending Dr: TEO AL Ordering Physician: Martita Garnica D.O. Date of Service: 08/23/24 Procedure(s): ITP Accession Number(s): [id number] cc: [facility] Test Date: 2024-08-23 Pat Name: ALEX ANDERSON Department: Room: - Gender: Male Neuro Ophthalmologist: : 1945 Requested By: MARTITA GARNICA Order Number: [id number] Silverio CASILLAS: MARTITA GARNICA Interpretive Statements Session Date: Electronically Signed On 09-05-2024 19:58:42 EDT by MARTITA GARNICA Dictated By: Martita Garnica D.O. Signed By: 09/05/24195809/05/241958 DD/ 1441 TD/TT: Title Vehicle Service Attendant: MARSHAL HealthcareITPOrdered By: Radiologist Radiology on 61-73-2442NMYV Healthcare Work Phone: aLL LIPID PROFILE (FASTING)on 00-02-9451TSZR HDL RATIO 2NOMS HealthcareComment on above:3.3 - 4.4 LOW RISK 4.4 - 7.1 AVERAGE RISK 7.1 - 11.0 MODERATE RISK >11.0 HIGH RISK Cholesterol [Mass/Vol]86 mg/dLNINF - 200 mg/dLNOCA HealthcareCholesterol in HDL [Mass/Vol]43 mg/dL40 - 60 mg/dLNOCA HealthcareComment on above:> or =60 mg/dl - LOW CARDIOVASCULAR RISK <40 mg/dl - HIGH CARDIOVASCULAR RISK Magnesium [Mass/Vol]26.8 mg/dLNOCA HealthcareComment on above:<100 mg/dl OPTIMAL 100-129 mg/dl NEAR OR ABOVE OPTIMAL 130-159 mg/dl BORDERLINE HIGH 160-189 mg/dl HIGH >190 mg/dl VERY HIGH Magnesium [Mass/Vol]16.2 mg/dLNOCA HealthcareTriglyceride [Mass/Vol]81 mg/dLNINF - 150 mg/dLNOCA HealthcareALL THYROID STIM HORMONEon 19-16-4575MXO Qn0.537 m[IU]/[facility] HealthcareNo Panel Informationon 70-11-3927UAAFKNGGLWHFK Healthcare ITPon 43-02-4688Mgtzohwzf Study observation (narrative)[facility] HealthcareAmbulatory Visit Summaryon 76-34-6561Qineewrzgt Visit SummaryAmbulatory Visit Summary ALEX ANDERSON :1945 [...] With: Fabi Antonio Where: [facility] [address] [place] [address] [place] [address]- Friday 2:00 PM EDT With: Katia SAMUELS MD Where: [facility] [address] [place], [place] [address] [address]- Medications What How Much When Instructions Unchanged [...] you for choosing us for your care. [facility]beighTRANSTHORACIC ECHO (TTE) LIMITED on 13-75-3580YLOGBNCFWRJFK ECHO (TTE) [address], [address] [place] [address] TRANSTHORACIC ECHOCARDIOGRAM REPORT Patient Name: ALEX ANDERSON Reading Physician: [id number] Ana Castro MD Study Date: 08/06/2024 Ordering Provider: [id number] TEO AL MRN/PID: [id number] Fellow: Nurse: Date of /Age: 7 1945 / 78 years Specialist Icu: Marlyn Castro RDCS, RT(R), RDMS, RVT Gender Assigned at Additional Staff: : Height: 187.96 cm Admit Date: Weight: 92.53 kg Admission Status: Outpatient BSA / BMI: 2.19 m2 / 26.19 Department Location: [facility] kg/m2 [place] Blood Pressure: 98 /64 mmHg Study Type: TRANSTHORACIC ECHO (TTE) LIMITED Diagnosis/ICD: Atherosclerotic heart disease of [place] coronary artery without angina pectoris-I25.10; ST elevation (STEMI) myocardial infarction of unspecified site-I21.3 Indication: STEMI CPT Codes: Echo Limited-78430 Patient History: Smoker: Former. Pertinent History: A-Fib, [...] 0.6 m/s (0.6-0.9m/s) PV Max P.6 mmHg [id number] Ana Castro MD Electronically signed on 08/11/2024 at 5:54:03 PM Final [facility] Urineon 08-02-2024 Bacteria identified Cx Nom (U)Microbiology PROCEDURE: Urine Culture [R1] SOURCE: U Cath BODY SITE: COLLECTED DATE/TIME: 07/29/2024 14:33 EST RECEIVED DATE/TIME: 07/30/2024 17:43 EST START DATE/TIME: 07/30/2024 17:43 EST FREE TEXT SOURCE: ABRIL CASILLAS, Katia SAMUELS MD, Katia Macias FINAL [...] Locations R1: This test was performed at: [facility], [address] [place] [address], [address]- , , CwkejoEmtzelACMC Healthcare System GlenbeighComment on above:Performed By: #### [id number] #### [facility] [address] [place] [address]Bvtozsmrhco distribution width Auto (RBC) [Ratio]on 08-02-2024 Erythrocyte distribution width (RBC) [Ratio]Erythrocyte distribution width [Ratio] by Automated mtmklZuid10.0-15.0[facility] Estimated glomerular filtration rate (GFR) non- Americanon 08-02-2024 GFR/1.73 sq M.predicted among non-blacks MDRD (S/P/Bld) [Vol rate/Area]Estimated glomerular filtration rate (GFR) non- AmericanLow>=60 mL/min/1.73m 2 [facility] HospitalHematocrit Auto (Bld) [Volume fraction]on 46-22-4250Zhwkauxxmj (Bld) [Volume fraction]Hematocrit [Volume Fraction] of Blood by Automated dwmsmTov38.0-54.0[facility] HospitalHemoglobin [Mass/volume] in Bloodon 87-71-4936Lytpskshid (Bld) [Mass/Vol]Hemoglobin [Mass/volume] in MpxcfQuj57.0-18.0[facility] Memorial HospitalIron binding capacity [Mass/volume] in Serum or Plasmaon 75-30-0516Rdkf binding capacity [Mass/Vol]Iron binding capacity [Mass/volume] in Serum or Elkhmk450.0-450.0 [facility] HospitalIron saturation [Mass Fraction] in Serum or Plasmaon 54-60-4010Lkip saturation [Mass fraction]Iron saturation [Mass Fraction] in Serum or PlasmaPromedica Memorial HospitalLaboratory - Chemistry and Chemistry - challengeon 28-21-6888Fynuagd [Mass/Vol]3.2 g/dLLow 3.4-5.0Prom[facility] Memorial HospitalCalcium [Mass/Vol]8.5 mg/dL8.5-10.1 [facility] HospitalChloride [Moles/Vol]107 mmol/H08-650WmtciqqyrPromedica Memorial HospitalCO2 [Moles/Vol]28.3 mmol/L21.0-32.0Prom[facility] Memorial HospitalCobalamin (Vitamin B12) [Mass/Vol]399 pg/lT384-8667GbufyujzxPromedica Memorial HospitalComment on above:Performed at: - [facility] [address] [id number] Director: Morgan Carpenter PhD, Phone: [phone] [Mass/Vol]2.07 mg/dLHigh0.70-1.30Promedica Memorial HospitalFerritin [Mass/Vol]35.0 ng/mL26.0-388.0[facility] GFR/1.73 sq M.predicted MDRD (S/P/Bld) [Vol rate/Area]38 mL/min/{1.73_m2}Low>=60 mL/min/1.73m 2FTriHealth Bethesda North HospitalGlucose [Mass/Vol]106 mg/pA11-797 Prom[facility] Memorial HospitalIron [Mass/Vol]22.0 ug/dLLow65.0-175.0Prom[facility] Memorial HospitalMagnesium [Mass/Vol]2.1 mg/dL1.8-2.4FTriHealth Bethesda North HospitalPotassium [Moles/Vol]4.1 mmol/L3.5-5.1FSelect Medical Specialty Hospital - Youngstownodium [Moles/Vol]144 mmol/U749-959FgzxgbxsvPromedica Memorial HospitalUrate [Mass/Vol]5.8 mg/dL3.5-7.2FTriHealth Bethesda North HospitalUrea nitrogen [Mass/Vol]28.0 mg/dLHigh7.0-18.0Prom[facility]ica Memorial HospitalUrea nitrogen/Creatinine [Mass ratio]13.5 mg/mgPromedica Memorial Hospital Laboratory - Urinalysison 80-92-7787Fpfosmh (U) [Mass/Vol]19.4 mg/dLHigh<=11.9 [facility] Memorial HospitalLeukocytes [#/volume] corrected for nucleated erythrocytes in Blood by Automated counon 08-81-3765JNH corrected for nucl RBC Auto (Bld) [#/Vol]Leukocytes [#/volume] corrected for nucleated erythrocytes in Blood by Automated coun4.0-11.0[facility] HospitalH Auto (RBC) [Entitic mass]on 43-90-4412WBC (RBC) [Entitic mass]MCH [Entitic mass] by Automated nsnsoYfd19.9-34.0Prom[facility] Memorial HospitalMCHC Auto (RBC) [Mass/Vol]on 43-87-1535TQAJ (RBC) [Mass/Vol]MCHC [Mass/volume] by Automated qoiluXhg36.9-35.2FTriHealth Bethesda North HospitalMCV Auto (RBC) [Entitic vol]on 04-37-0147CYA (RBC) [Entitic vol]MCV [Entitic volume] by Automated countLow 80.0-94.0Prom[facility] Memorial HospitalNo Panel Informationon - Hydroxy Vitamin D Total48.3 ng/mLPromedica Memorial HospitalComment on above:<20 ng/mL Vit D uxomjhkup28-<30 ng/mL Vit D muudxvweqtkl61-725 ng/mL Vit D sufficient>100 ng/mL Potential ShxwqgscTujfsk26.30 ng/mL8.60-58.90Promedica Memorial HospitalParathyroid Hormone (Intact)62 pg/sB41-06EnlrfpyhbPromedica Memorial HospitalComment on above:Performed at: - [facility] [id number] Director: Morgan Carpenter PhD, Phone: [phone] Level3.1 mg/dL2.6-4.7FTriHealth Bethesda North HospitalUrine Random Hqzniughcp93.50 mg/dL20.00-300.00[facility] Platelet mean volume Auto (Bld) [Entitic vol]on 27-51-5268Mlmwqsun mean volume (Bld) [Entitic vol]Platelet mean volume [Entitic volume] in Blood by Automated count9.5-13.5FTriHealth Bethesda North HospitalPlatelets Auto (Bld) [#/Vol]on 86-84-7378Tupeeujtz (Bld) [#/Vol]Platelets [#/volume] in Blood by Automated -037ZtpfuhogzPromedica Memorial HospitalRBC Auto (Bld) [#/Vol]on 08-02-2024 RBC (Bld) [#/Vol]Erythrocytes [#/volume] in Blood by Automated countLow4.70-6.10 [facility] Memorial Hospitalerum or plasma anion gap determinationon 08-56-8375Gfehv gap [Moles/Vol]Serum or plasma anion gap determinationPromedica Memorial HospitalUrine protein/creatinine ratioon 08-02-2024 Protein/Creatinine (U) [Ratio]Urine protein/creatinine ratioPromedica Memorial HospitalECG 12 Leadon 01-36-4482YHE revealed normal sinus rhythm with first-degree AV block, septal myocardial infarction of undetermined age, diffuse repolarization abnormalities, abnormal ECGCPACSOhioHealth Marion General Hospital Work Phone: ITPon 19-69-4545[address] [address] Cardiac Rehab Report Signed Patient: ALEX ANDERSON MR#: [id number] : 1945 Acct:[id number] Age/Sex: 78 / M ADM Date: 07/23/24 Loc: CR Attending Dr: TEO AL Ordering Physician: Martita Garnica D.O. Date of Service: 07/23/24 Procedure(s): ITP Accession Number(s): [id number] cc: [facility] Test Date: 2024-07-23 Pat Name: ALEX ANDERSON Department: Room: - Gender: Male Neuro Ophthalmologist: : 1945 Requested By: MARTITA GARNICA Order Number: [id number] Silverio MD: MARTITA GARNICA Interpretive Statements Session Date: Electronically Signed On 07-25-2024 8:18:39 EST by MARTITA GARNICA Dictated By: Martita Garnica D.O. Signed By: 07/25/2481707/25/24817 DD/ 1540 TD/TT: Title Vehicle Service Attendant:ALEMadiologbere Radiologist, - 07/25/2024 [place] [address] Cardiac Rehab Report Signed Patient: ALEX ANDERSON MR#: [id number] : 1945 Acct:[id number] Age/Sex: 78 / M ADM Date: 07/23/24 Loc: CR Attending Dr: TEO AL Ordering Physician: Martita Garnica D.O. Date of Service: 07/23/24 Procedure(s): ITP Accession Number(s): [id number] cc: [facility] Test Date: 2024-07-23 Pat Name: ALEX ANDERSON Department: Room: - Gender: Male Neuro Ophthalmologist: : 1945 Requested By: MARTITA GARNICA Order Number: [id number] Silverio CASILLAS: MARTITA GARNICA Interpretive Statements Session Date: Electronically Signed On 07-25-2024 8:18:39 EST by MARTITA GARNICA Dictated By: Martita Garnica D.O. Signed By: 07/25/24 0818 07/25/24817 DD/ 1540 TD/TT: Title Vehicle Service Attendant: NOMS HealthcareITPOrdered By: Radiologist Radiology on 03-78-5363VJHH Healthcare Work Phone: ITPon 98-25-4706Fwqfeolbm Study observation (narrative)MARSHAL HealthcareAmbulatory Visit Summaryon 47-67-0960Xlncwmxdom Visit SummaryAmbulatory Visit Summary ALEX ANDERSON :1945 [...] Follow-Up Appointments 2024 11:20 AM EDT With: HEATHER OMALLEY PA-C Where: [facility] [address] [facility] [place] [address]- Friday. 2024 2:00 PM EDT With: ABRIL CASILLAS, Katia Macias Where: [facility] [place] [address] [address]- Medications What How Much When Instructions New cephalexin (Keflex 250 mg Cap) 1 Capsules By Mouth Every day Refills: 1 Pickup at [facility]/pharmacy #[id number] Unchanged albuterol (Albuterol (Eqv-ProAir HFA) 90 mcg/ [...] physician if questions or concerns Pharmacy Information [facility]/pharmacy #[id number]: [address], [place] [phone] What How Much When Comments Stop Taking [...] e-mail asking about yo (more content not included)...[facility]beighUrology Office/Clinic Noteon 79-54-1495Gwmoijf Office/Clinic NoteUrology Office/Clinic Note Chief Complaint cath [...] E&M of Est. Patient Moderate 30-39 Min 89488 Influenza immunization status assessed 1030F Insertion of temp indwelling bladder cath (zapien) simple 64552 Medication list documented in medical record 1159F Most recent diastolic blood pressure <80 mm Hg 3078F Patient screen for fall risk: no falls in last year or 1 fall with no injury in last year 1101F Review of all meds by a prescribing practitioner or clinical pharmacist documented in EHR 1160F Systolic BP <130 mm Hg (Most Recent) 3074F 2. Zapine catheter problem (T83.098A: Other mechanical complication of [...] stop the suppressive abx. 3. Anticoagulated, (Z79.01: FDC (current) use of anticoagulants)Anticoagulated Coumadin & Plavix Ordered: E&M of Est. Patient Moderate 30-39 Min 22617 4. Bladder cancer (C67.9: Malignant neoplasm of bladder, unspecified) Original TURBT/extraction of 2 bladder calculi 09/12/22 - Noninvasive papillary urothelial carcinoma, low grade. Invasion is not recognized. A small fragment of detrusor muscle is present in the specimen. Last cysto 04/06/24. Next cysto 10/05/24. Orders: cephalexin, 250 mg = 1 cap(s), Oral, Daily, # 30 cap(s), Refills(s) 1, Pharmacy: [facility]/pharmacy #[id number], 187, cm, 07/15/24 10:46:00 EST, Height/Length Dosing, 93, kg, 07/15/24 10:46:00 EST, Weight Dosing sterile water, See Instructions, 500 mL, Refill(s) 5, Irrigate zapien catheter as needed with 60 cc sterile water, [facility]/pharmacy #[id number], 187, cm, 04/06/24 11:21:00 EST, Height/Length Dosing, 93, kg, 04/06/24 11:21:00 EST, Weight Dosing Follow-up With When Contact Information HEATHER OMALLEY PA-C, URL In 1 month [address] [place] [address] Additional Instructions: Patient Education Bladder [...] 1 cap(s), Oral, (more content not included)...Normal [facility] Medical CenterComment on above:Result Comment: Electronically Signed By: HEATHER OMALLEY PA-C\\.br\\Date and Time Signed: 07/15/2513:06 ESTALL THYROID STIM HORMONEon 52-91-3723Rzuegmugguvomp and review of laboratory results AbnormalNOMercy Hospital St. John's Qn0.039 m[IU]/LLowChristian HospitalCLINISYNCNResearch Belton HospitalOH PROTHROMBIN TIME INR W/O COUMon 27-69-0207Xfokowbfqtaeev and review of laboratory resultsAbnormalNOMS HealthcarePT Coag (PPP) [Time]61.5 s Critically highNOMS HealthcareComment on above:RESULTS CALLED TO CHARLENE CERDA [facility] BY Vidya Valentine at 1126 TBH INR7.04Critically highNOMS HealthcareComment on above:RESULTS CALLED TO CHARLENE CERDA [facility] BY Vidya Valentine at 1127 DESIRED INR: 2.0-3.0 CONDITIONS NOT LISTED BELOW 2.5-3.5 FOR PROSTHETIC HEART VALVE REPLACEMENT 2.5-3.5 RECURRENT THROMBOSIS CLINISYNCNOMS HealthcareITPon 86-63-8520M[place] [address] Cardiac Rehab Report Signed Patient: ALEX ANDERSON MR#: [id number] : 1945 Acct:[id number] Age/Sex: 78 / M ADM Date: 06/25/24 Loc: CR Attending Dr: TEO AL Ordering Physician: Martita Garnica D.O. Date of Service: 06/25/24 Procedure(s): ITP Accession Number(s): [id number] cc: [facility] Test Date: 2024-06-25 Pat Name: ALEX ANDERSON Department: Room: Gender: Neuro Ophthalmologist: : Requested By: Order Number: [id number] Reading MD: MARTITA GARNICA Interpretive Statements Session Date: Electronically Signed On 06-25-2024 18:17:01 EST by MARTITA GARNICA Dictated By: Martita Garnica D.O. Signed By: 06/25/24181606/25/241816 DD/ 1308 TD/TT: Title Vehicle Service Attendant:ALEMadiologbere, Radiologist, - 06/25/2024 [place] [address] Cardiac Rehab Report Signed Patient: ALEX ANDERSON MR#: [id number] : 1945 Acct:[id number] Age/Sex: 78 / M ADM Date: 06/25/24 Loc: CR Attending Dr: TEO AL Ordering Physician: Martita Garnica D.O. Date of Service: 06/25/24 Procedure(s): ITP Accession Number(s): [id number] cc: [facility] Test Date: 2024-06-25 Pat Name: ALEX ANDERSON Department: Room: Gender: Neuro Ophthalmologist: : Requested By: Order Number: [id number] Reading MD: MARTITA GARNICA Interpretive Statements Session Date: Electronically Signed On 06-25-2024 18:17:01 EST by MARTITA GARNICA Dictated By: Martita Garnica D.O. Signed By: 06/25/24181606/25/241816 DD/ 1308 TD/TT: Title Vehicle Service Attendant: MARSHAL HealthcareRadiology Study observation (narrative)KATH HealthcareITPOrdered By: Radiologist Radiology on 61-41-0755IXVL Healthcare Work Phone: Urology Office/Clinic Noteon 70-99-8099Kfismvd Office/Clinic NoteUrology Office/Clinic Note HPI Staff 4 wk cath change. History of Present Illness I have reviewed and verified the staff HPI to be accurate for this encounter. Portions of this record may have been created with voice recognition artificial intelligence software, specifically [employer], [employer] and or [employer]. Substitutions may have occurred due to the inherent limitations of voice recognition and artificial intelligence software. Physical Exam General: Well developed, well nourished, in no acute distress. Here w/ today who does assist in providing some of his history. Assessment/Plan PRW pt 1. Gross hematuria (R31.0: Gross hematuria) [facility] ER 04/28/2024 with complaints of a clogged [...] virus vaccine, inactivated 03/26/2023 Recorded SARS-CoV-2 (COVID-19) mRNAMUL.ORD![id number] 03/29/2022 Recorded influenza virus vaccine, inactivated 03/16/2022 Recorded influenza virus vaccine, inactivated 03/06/2022 Recorded SARSCoV2 mRNA (more content not included)...[facility] Comment on above:Result Comment: Electronically Signed By: TC Boles APRN, [place] X\\.br\\Date and Time Signed: 06/07/24 10:43 ESTAmbulatory Visit Summaryon 85-47-8460Cexdsubqkl Visit SummaryAmbulatory Visit Summary ALEX ANDERSON :1945 [...] HEATHER OMALLEY PA-C Where: [facility] [address] [place] [address]- Friday 2:00 PM EDT With: Katia SAMUELS MD Where: [facility] [address] [place] [address]- Medications What How Much When Instructions Unchanged [...] you for choosing us for your care. [facility] System GlenbeighITPon 74-98-4123Ar[place] [address] Cardiac Rehab Report Signed Patient: ALEX ANDERSON MR#: [id number] : 1945 Acct:[id number] Age/Sex: 78 / M ADM Date: 05/25/24 Loc: CR Attending Dr: TEO AL Ordering Physician: Martita Garnica D.O. Date of Service: 05/25/24 Procedure(s): ITP Accession Number(s): [id number] cc: [facility] Test Date: 2024-05-25 Pat Name: ALEX ANDERSON Department: Room: - Gender: Male Neuro Ophthalmologist: : 1945 Requested By: MARTITA GARNICA Order Number: [id number] Reading MD: MARTITA GARNICA Interpretive Statements Session Date: Electronically Signed On 05-26-2024 8:06:21 EST by MARTITA GARNICA Dictated By: Martita Garnica D.O. Signed By: 05/26/24 0806 05/26/24805 DD/ 075 TD/TT: Title Vehicle Service Attendant:ALEMadiolIker brown MD - 05/26/2024 [place] [address] Cardiac Rehab Report Signed Patient: ALEX ANDERSON MR#: [id number] : 1945 Acct:[id number] Age/Sex: 78 / M ADM Date: 05/25/24 Loc: CR Attending Dr: TEO AL Ordering Physician: Martita Garnica D.O. Date of Service: 05/25/24 Procedure(s): ITP Accession Number(s): [id number] cc: [facility] Test Date: 2024-05-25 Pat Name: ALEX ANDERSON Department: Room: - Gender: Male Neuro Ophthalmologist: : 1945 Requested By: MARTITA GARNICA Order Number: [id number] Reading MD: MARTITA GARNICA Interpretive Statements Session Date: Electronically Signed On 05-26-2024 8:06:21 EST by MARTITA GARNICA Dictated By: Martita Garnica D.O. Signed By: 05/26/24 0806 05/26/24805 DD/ 075 TD/TT: Title Vehicle Service Attendant: MARSHAL MadisonITPOrdered By: Radiologist Radiology on 02-01-3771AATR [facility] Work Phone: ITPon 41-78-7460Dykruiqwr Study observation (narrative)MARSHAL MadisonAlanine Aminotransferaseon 37-32-2761MJV [Catalytic activity/Vol]12 U/LNormalThe [facility] Physician GroupComment on above: Performed By: #### PTT, PT #### [address] Carr StreetAlanine aminotransferase [Enzymatic activity/volume] in Serum or PlasmaOrdered By: Teo Al on 02-82-3062EJZ [Catalytic activity/Vol]Alanine aminotransferase [Enzymatic activity/volume] in Serum or PlasmaPromedica Memorial HospitalAspartate Amino Transferaseon 03-40-3375YEI [Catalytic activity/Vol]13 U/KYbxkzb65-01Lwp [facility] Physician GroupComment on above:Performed By: #### PTT, PT #### [facility] [address] [place] [address] USAAspartate aminotransferase [Enzymatic activity/volume] in Serum or PlasmaOrdered By: Teo Al on 39-95-0173PXV [Catalytic activity/Vol]Aspartate aminotransferase [Enzymatic activity/volume] in Serum or Mfxnvn56-29BmtdkmbusPromedica Memorial HospitalBasic Metabolic Panelon 05-21-2024 Anion gap [Moles/Vol]14.7 mmol/LNormal6.0-15.0The [facility] Comment on above:Performed By: #### PTT, PT #### [place] [address] USACalcium [Mass/Vol]9.1 mg/dLNormal8.6-10.3The [facility] Physician GroupComment on above:Performed By: #### PTT, PT #### [facility] [address] [place] [address] USAChloride [Moles/Vol]105 mmol/JAkzesd54-680Crv [facility] Physician GroupComment on above:Performed By: #### PTT, PT #### [place] [address] USACO2 [Moles/Vol]27.8 mmol/NLrdfyq54.0-31.0The [facility] Physician GroupComment on above:Performed By: #### PTT, PT #### [facility] [address] [place] [address] USACreatinine [Mass/Vol]2.20 mg/dLHigh0.70-1.30The [facility] Physician GroupComment on above:Performed By: #### PTT, PT #### [facility] [address] [place] [address] USAEstimated GFR29.538 mL/MinNormalThe [facility] Physician GroupComment on above:Performed By: #### PTT, PT #### [facility] [address] [place] [address] USAGlucose [Mass/Vol]124 mg/oELikl65-217Naa [facility] Physician GroupComment on above:Result Comment: Random Glucose Reference Range is dependent on time and content of last meal. Glucose of more than 200 mg/dL in a nonstressed, ambulatory subject supports the diagnosis of Diabetes Mellitus. ADA recommended reference rangePerformed By: #### PTT, PT #### [facility] [address] [place] [address] USAPotassium [Moles/Vol]4.5 mmol/LNormal3.5-5.1The [facility] Physician GroupComment on above:Performed By: #### PTT, PT #### [facility] [address] [place] [address] USASodium [Moles/Vol]143 mmol/QKxqpcy582-266Rve [facility] Physician GroupComment on above:Performed By: #### PTT, PT #### [facility] [address] [place] [id number] USAUrea nitrogen [Mass/Vol]34 mg/dLHigh7-25The [facility] Physician GroupComment on above:Performed By: #### PTT, PT #### [facility] [address] [place] [address] USABasophils Auto (Bld) [#/Vol]Ordered By: Teo Al on 59-24-0560Yxgfgharp (Bld) [#/Vol]Automated basophil count0.0-0.2FTriHealth Bethesda North HospitalBasophils/100 WBC Auto (Bld)Ordered By: Teo Al on 40-60-0127Csdezlyxk/100 WBC (Bld)Automated basophil %.[facility] Memorial HospitalCalcium [Mass/volume] in Serum or PlasmaOrdered By: Teo Al on 17-51-0280Cjfglip [Mass/Vol]Calcium [Mass/volume] in Serum or Plasma8.6-10.3 [facility] HospitalCarbon dioxide, total [Moles/volume] in Serum or PlasmaOrdered By: Teo lA on 22-79-0533SH8 [Moles/Vol]Carbon dioxide, total [Moles/volume] in Serum or Cumdry86.0-31.0[facility] HospitalChloride [Moles/volume] in Serum or PlasmaOrdered By: Teo Al on 72-12-3184Ktcoinio [Moles/Vol]Chloride [Moles/volume] in Serum or Qlgnrl22-757 [facility] HospitalCholesterol [Mass/volume] in Serum or Plasma Ordered By: Teo Al on 57-90-4569Tavdintaoik [Mass/Vol]Cholesterol [Mass/volume] in Serum or ThjnymKsp598-986DduwcvdpjPromedica Memorial Hospital Comment on above:Chol less than 200 mg/dl low riskChol 201-239 mg/dl borderline riskChol 240 mg/dl and greater high riskCholesterol in HDL [Mass/volume] in Serum or PlasmaOrdered By: Teo Al on 79-73-1058Odlujobxmld in HDL [Mass/Vol]Serum or plasma high density lipoprotein (HDL) cholesterol measurement 23-[facility] Memorial HospitalComment on above:HDL CHOL ATP-III CLASSIFICATION Cardiovascular RiskHDL > or equal to 60 mg/dL LOWHDL < 40 mg/dL HIGHCholesterol in LDL Calc [Mass/Vol]Ordered By: Teo Al on 05-21-2024 Cholesterol in LDL [Mass/Vol]Cholesterol in LDL [Mass/volume] in Serum or Plasma by calculationPromedica Memorial HospitalComment on above:LDL ATP III CLASSIFICATIONLDL less than 100 mg/dL OptimalLDL 100-129 mg/dL Near or above obnyinoHEU625-577 mg/dL Borderline highLDL 160-189 mg/dL HighLDL greater than 189 mg/dL Very highCholesterol in VLDL Calc [Mass/Vol]Ordered By: Teo Al on 40-30-9997Knrkitchzhc in VLDL [Mass/Vol]Cholesterol in VLDL [Mass/volume] in Serum or Plasma by calculationPromedica Memorial HospitalComplete Blood Count Auto Diffon 37-31-0786Xngvlvrtf (Bld) [#/Vol]0.1 10*3/uLNormal0.0-0.2The [facility] Physician GroupComment on above:Result Comment: PERFORMED BY: [address] [place] [address] PATHOLOGIST PORTAINER OPERATOR MOHAMED M EL-FAKHARANY M.D.Performed By: #### PTT, PT #### [facility] [address] [place] [phone] USABasophils/100 WBC (Bld)1.0 %Normal.The [facility] Physician GroupComment on above:Performed By: #### PTT, PT #### [facility] [address] [place] [address] USAEosinophils (Bld) [#/Vol]0.2 10*3/uLNormal0.0-0.45The [facility] Physician GroupComment on above:Performed By: #### PTT, PT #### [facility] [address] [place] [phone] USAEosinophils/100 WBC (Bld)3.3 %Normal.The [facility] Physician GroupComment on above:Performed By: #### PTT, PT #### [place] [address] USAErythrocyte distribution width (RBC) [Ratio]18.1 %High 12.0-14.8The [facility] Physician GroupComment on above:Performed By: #### PTT, PT #### [place] [address] USAHematocrit (Bld) [Volume fraction]30.3 %Low38.8-50.0The [facility] Physician GroupComment on above:Performed By: #### PTT, PT #### [place] [address] USAHemoglobin (Bld) [Mass/Vol]9.5 g/dLLow13.0-17.0The [facility] Physician GroupComment on above:Performed By: #### PTT, PT #### [place] [phone] USALymphocytes (Bld) [#/Vol]1.3 10*3/uLNormal1.00-4.8The [facility] Physician GroupComment on above:Performed By: #### PTT, PT #### [place] [phone] USALymphocytes/100 WBC (Bld)22.2 %Normal.The [facility] Physician GroupComment on above:Performed By: #### PTT, PT #### [facility] [address] [place] [address] USAH (RBC) [Entitic mass]23.3 pgLow27.5-35.2The [facility] Physician GroupComment on above:Performed By: #### PTT, PT #### [facility] [address] [place] [address] USAMCV (RBC) [Entitic vol]74.4 fLLow83.5-101The [facility] Physician GroupComment on above:Performed By: #### PTT, PT #### [facility] [address] [place] [address] USAMean Corpuscular HGB Conc31.3 g/dLLow32.5-35.6The [facility] Physician GroupComment on above:Performed By: #### PTT, PT #### [place] [address] USAMonocytes (Bld) [#/Vol]0.6 10*3/uLNormal0.0-0.8The [facility] Physician GroupComment on above:Performed By: #### PTT, PT #### [facility] [address] [place] [address] USAMonocytes/100 WBC (Bld)10.2 %Normal.The [facility] Physician GroupComment on above:Performed By: #### PTT, PT #### [facility] [address] [place] [address] USANeutrophils (Bld) [#/Vol]3.8 10*3/uLNormal1.8-7.7The [facility] Physician GroupComment on above:Performed By: #### PTT, PT #### [place] [address] USANeutrophils/100 WBC (Bld)63.3 %Normal.The [facility] Physician GroupComment on above:Performed By: #### PTT, PT #### [facility] [address] [place] [address] USANRBC%0.1 /100{WBC}Normal0-0.5The [facility] Group Comment on above:Performed By: #### PTT, PT #### [facility] [address] [place] [address] USAPlatelet mean volume (Bld) [Entitic vol]8.1 fLNormal 6.6-10.1The [facility] Physician GroupComment on above:Performed By: #### PTT, PT #### [facility] [address] [place] [address] USAPlatelets (Bld) [#/Vol]315 10*3/kQBvsyjb817-617Gcn [facility] Physician GroupComment on above:Performed By: #### PTT, PT #### [facility] [address] [place] [address] USARBC (Bld) [#/Vol]4.07 10*6/uLNormal3.90-5.60The [facility] Physician GroupComment on above:Performed By: #### PTT, PT #### [facility] [address] [place] [address] USAWBC (Bld) [#/Vol]6.1 10*3/uLNormal4.1-10.5The [facility] Physician GroupComment on above:Performed By: #### PTT, PT #### [place] [address] USACreatinine [Mass/volume] in Serum or PlasmaOrdered By: Teo Al on 17-78-2421Yscfbpejko [Mass/Vol]Creatinine [Mass/volume] in Serum or PlasmaHigh0.70-1.30[facility] Memorial HospitalECG 12 Leadon 74-40-3765DHX revealed normal sinus rhythm, IVCD, diffuse repolarization abnormalities, septal myocardial infarction of undetermined age, abnormal ECGCPACSOhioHealth Marion General Hospital Work Phone: Eosinophils Auto (Bld) [#/Vol]Ordered By: Teo Al on 49-83-2824Dapsokgugcc (Bld) [#/Vol]Automated eosinophil count0.0-0.45 [facility] HospitalEosinophils/100 WBC Auto (Bld)Ordered By: Teo Al on 01-04-1607Ivcywywjsia/100 WBC (Bld)Automated eosinophil %. [facility] Memorial HospitalErythrocyte distribution width Auto (RBC) [Ratio]Ordered By: Teo Al on 47-47-4785Qkmluxlovgu distribution width (RBC) [Ratio]Erythrocyte distribution width [Ratio] by Automated countHigh 12.0-14.8[facility] HospitalGlucose [Mass/volume] in Serum or PlasmaOrdered By: Teo Al on 69-23-9340Lvgrbqi [Mass/Vol]Glucose [Mass/volume] in Serum or VcfkvpHmdv67-340IcrtqkzuuPromedica Memorial Hospital Comment on above:ADA recommended reference rangeRandom Glucose Reference Range is dependent on time and content of last meal. Glucose of more than 200 mg/dL in a nonstressed, ambulatory subject supports the diagnosisof Diabetes Mellitus. Hematocrit Auto (Bld) [Volume fraction]Ordered By: Teo Al on 05-21-2024 Hematocrit (Bld) [Volume fraction]Hematocrit [Volume Fraction] of Blood by Automated yjdrwSkz87.8-50.0[facility] HospitalHemoglobin [Mass/volume] in BloodOrdered By: Teo Al on 41-51-3757Hkcctbvhkr (Bld) [Mass/Vol]Hemoglobin [Mass/volume] in PfrigVlz45.0-17.0[facility] HospitalLeukocytes [#/volume] corrected for nucleated erythrocytes in Blood by Automated counOrdered By: Teo Al on 26-45-6188MZY corrected for nucl RBC Auto (Bld) [#/Vol]Leukocytes [#/volume] corrected for nucleated erythrocytes in Blood by Automated coun4.1-10.5FTriHealth Bethesda North Hospital Lipid Panelon 76-28-9405Ccoogqacpab [Mass/Vol]89 mg/sQKli323-302Iec [facility] Physician [facility] HospitalComment on above:Result Comment: Chol less than 200 mg/dl low risk Chol 201-239 mg/dl borderline risk Chol 240 mg/dl and greater high riskPerformed By: #### PTT, PT #### [facility] [address] [place] [address] USACholesterol in HDL [Mass/Vol]41 mg/dALowmfy02-14Wak [facility] Physician GroupComment on above:Result Comment: HDL CHOL ATP-III CLASSIFICATION Cardiovascular Risk HDL > or equal to 60 mg/dL LOW HDL < 40 mg/dL HIGHPerformed By: #### PTT, PT #### [facility] [address] [place] [address] USACholesterol.total/Cholesterol in HDL [Mass ratio]2.2 {ratio}Normal<5.0The [facility] Physician GroupComment on above:Performed By: #### PTT, PT #### [facility] [address] [place] [address] USALDL Cholesterol,Ibuelozbpd03 mg/dLNormal0-100The [facility] Physician GroupComment on above:Result Comment: LDL ATP III CLASSIFICATION LDL less than 100 mg/dL Optimal LDL 100-129 mg/dL Near or above optimal LDL 130-159 mg/dL Borderline high LDL 160-189 mg/dL High LDL greater than 189 mg/dL Very highPerformed By: #### PTT, PT #### [facility] [address] [place] [address] USATriglyceride w/Ttlkir43 mg/dLNormal0-149The [facility] Physician GroupComment on above:Result Comment: TRIG ATP III CLASSIFICATION TRIG less than 150 mg/dL Normal TRIG 150-199 mg/dL Borderline high TRIG 200-500 mg/dL High TRIG greater than 500 mg/dL Very high Standard traceable to the Center for Disease Conrtrol and Prevention (CDC) test method.Performed By: #### PTT, PT #### [facility] [address] [place] [address] USAVLDL GGRUZDMJOQA23 mg/dLNormalThe [facility] Physician GroupComment on above:Performed By: #### PTT, PT #### [facility] [address] [place] [phone] USALymphocytes Auto (Bld) [#/Vol]Ordered By: Teo Al on 30-93-8717Qzikyhzfaxr (Bld) [#/Vol]Lymphocytes [#/volume] in Blood by Automated count1.00-4.8[facility] Memorial HospitalLymphocytes/100 WBC Auto (Bld)Ordered By: Teo Al on 94-57-5089Vlcmcvqitnp/100 WBC (Bld) Lymphocytes/100 leukocytes in Blood by Automated count.[facility] Memorial HospitalMCH Auto (RBC) [Entitic mass]Ordered By: Teo Al on 91-43-3743APE (RBC) [Entitic mass]MCH [Entitic mass] by Automated countLow 27.5-35.2FTriHealth Bethesda North HospitalMCHC Auto (RBC) [Mass/Vol]Ordered By: Teo Al on 53-40-1805EAYD (RBC) [Mass/Vol]MCHC [Mass/volume] by Automated buxxmMbn91.5-35.6FTriHealth Bethesda North HospitalMCV Auto (RBC) [Entitic vol] Ordered By: Teo Al on 92-90-5502HIC (RBC) [Entitic vol]MCV [Entitic volume] by Automated qikvlHdz24.5-101Prom[facility] Memorial HospitalMonocytes Auto (Bld) [#/Vol]Ordered By: Teo Al on 66-34-6204Qucgrjqqx (Bld) [#/Vol]Automated blood monocyte count0.0-0.8[facility] Monocytes/100 WBC Auto (Bld)Ordered By: Teo Al on 05-21-2024 Monocytes/100 WBC (Bld)Automated monocyte %.[facility] Neutrophils Auto (Bld) [#/Vol]Ordered By: Teo Al on 05-21-2024 Neutrophils (Bld) [#/Vol]Neutrophils [#/volume] in Blood by Automated count 1.8-7.7FTriHealth Bethesda North HospitalNeutrophils/100 WBC Auto (Bld)Ordered By: Teo Al on 58-69-8923Lrggbkowqhz/100 WBC (Bld)Automated neutrophil %. [facility] HospitalNo Panel InformationOrdered By: Teo Al on 58-27-5923Yhdjcitib GFR (CKD-EPI)29.538 mL/MinPromedica Memorial HospitalPharmacy Creatinine Clearance (ChemN/[facility] Nucleated erythrocytes [Presence] in Blood by Automated countOrdered By: Teo Al on 58-07-1402Rdscgndfr RBC Auto Ql (Bld)Nucleated erythrocytes [Presence] in Blood by Automated count0-0.5FTriHealth [facility] Hospital Platelet mean volume Auto (Bld) [Entitic vol]Ordered By: Teo Al on 95-92-9955Tvxvlmio mean volume (Bld) [Entitic vol]Platelet mean volume [Entitic volume] in Blood by Automated count6.6-10.1FTriHealth [facility] Hospital Platelets Auto (Bld) [#/Vol]Ordered By: Teo Al on 91-22-5738Aduiunryp (Bld) [#/Vol]Platelets [#/volume] in Blood by Automated hkfax467-907MqcgesynhPromedica Memorial HospitalPotassium [Moles/volume] in Serum or PlasmaOrdered By: Teo Al on 75-96-1264Iuqyjszey [Moles/Vol]Potassium [Moles/volume] in Serum or Plasma3.5-5.1FTriHealth Bethesda North HospitalRBC Auto (Bld) [#/Vol] Ordered By: Teo Al on 91-68-4418RXA (Bld) [#/Vol]Erythrocytes [#/volume] in Blood by Automated count3.90-5.60[facility] Hospitalerum or plasma anion gap determinationOrdered By: Teo Al on 84-83-3876Znvmd gap [Moles/Vol]Serum or plasma anion gap determination6.0-15.0[facility] Hospitalerum or plasma total cholesterol/high density lipoprotein (HDL) cholesterol mass ratOrdered By: Teo Al on 05-21-2024 Cholesterol.total/Cholesterol in HDL [Mass ratio]Serum or plasma total cholesterol/high density lipoprotein (HDL) cholesterol mass rat<5.0[facility] Hospitalodium [Moles/volume] in Serum or PlasmaOrdered By: Teo Al on 65-84-8034Hpxxmg [Moles/Vol]Sodium [Moles/volume] in Serum or Pspxvv822-477WfdfsbzukPromedica Memorial HospitalThyroid Stimulating Hormoneon 03-32-4649FSX Qn0.11 m[IU]/LLow0.45-5.33The [facility] Physician GroupComment on above:Result Comment: PERFORMED BY: [facility] [address] [place] [address] PATHOLOGIST PORTAINER OPERATOR ED CRUZ M.D.Performed By: #### PTT, PT #### [facility] [address] [place] [phone] USAThyrotropin [Units/volume] in Serum or PlasmaOrdered By: Teo Al on 09-58-3604UVX QnThyrotropin [Units/volume] in Serum or Plasma Low0.45-5.33[facility] Memorial HospitalTriglyceride [Mass/volume] in Serum or PlasmaOrdered By: Teo Al on 34-87-5228Evaboaeiexcs [Mass/Vol] Triglyceride [Mass/volume] in Serum or Plasma0-149Prom[facility] Memorial HospitalComment on above:TRIG ATP III CLASSIFICATIONTRIG less than 150 mg/dL NormalTRIG 150-199 mg/dL Borderline highTRIG 200-500 mg/dL High TRIG greater than 500 mg/dL Very highStandard traceable to the Center for Disease Conrtrol and Prevention (CDC) test method.Urea nitrogen [Mass/volume] in Serum or Plasma Ordered By: Teo Al on 91-62-9488Nkfj nitrogen [Mass/Vol]Urea nitrogen [Mass/volume] in Serum or PlasmaHigh7-25Prom[facility] Memorial HospitalWBC Auto (Bld) [#/Vol]Ordered By: Teo Al on 59-99-6818PCH (Bld) [#/Vol] Leukocytes [#/volume] in Blood by Automated count4.1-10.5FTriHealth Bethesda North HospitalITPon 43-38-6888[place] [address] Cardiac Rehab Report Signed Patient: ALEX ANDERSON MR#: [id number] : 1945 Acct:[id number] Age/Sex: 78 / M ADM Date: 04/26/24 Loc: CR Attending Dr: TEO AL Ordering Physician: Martita Garnica D.O. Date of Service: 04/26/24 Procedure(s): ITP Accession Number(s): [id number] cc: [facility] Test Date: 2024-04-26 Pat Name: ALEX ANDERSON Department: Room: - Gender: Male Neuro Ophthalmologist: : 1945 Requested By: MARTITA GARNICA Order Number: [id number] Reading MD: MATRITA GARNICA Interpretive Statements Session Date: Electronically Signed On 04-27-2024 20:20:06 EST by MARTITA GARNICA Dictated By: Martita Garnica D.O. Signed By: 04/27/24201904/27/242019 DD/ 18 TD/TT: Title Vehicle Service Attendant:ALEMadiologIker blackburn, - 04/27/2024 [place] [address] Cardiac Rehab Report Signed Patient: ALEX ANDERSON MR#: [id number] : 1945 Acct:[id number] Age/Sex: 78 / M ADM Date: 04/26/24 Loc: CR Attending Dr: TEO AL Ordering Physician: Martita Garnica D.O. Date of Service: 04/26/24 Procedure(s): ITP Accession Number(s): [id number] cc: [facility] Test Date: 2024-04-26 Pat Name: ALEX ANDERSON Department: Room: - Gender: Male Neuro Ophthalmologist: : 1945 Requested By: MARTITA GARNICA Order Number: [id number] Reading MD: MARTITA GARNICA Interpretive Statements Session Date: Electronically Signed On 04-27-2024 20:20:06 EST by MARTITA GARNICA Dictated By: Martita Garnica D.O. Signed By: 04/27/24201904/27/242019 DD/ 18 TD/TT: Title Vehicle Service Attendant: MARSHAL MadisonITPOrdered By: Radiologist Radiology on 46-45-6371MTCG [employer] Work Phone: ITPon 44-53-6290Sgozvylqm Study observation (narrative)MARSHAL HealthcareUroVysion Fish and Urine Cyto ([facility])on 04-12-2024 UVFISH & UCDiagnosis InfoInvalid Interpretation [facility] Comment on above:Result Comment: A:Urine,Bladder Wash:Bladder [...] with cytology and cystoscopy results. * CPT: 34547, 98442. Microscopic Notes - Microscopic Notes - Abnormal cells 9p21 deletions: Abnormal cells aneploid events: Total cells analyzed: 25 Hematuria: Gross Description Site ID:A color Colorless fixative Alcohol Received 90 mls of slightly cloudy colorless fluid with the patient's name and, Bladder Wash on the vial. Electronically signed by : on: 04/12/2024 16:53:27Performed By: #### [id number] #### [facility] [address] [place] [address]Iptvovivvt Visit Summaryon 85-88-0839Yxqtckunqq Visit Summary Ambulatory Visit Summary ALEX ANDERSON :1945 Visit Date:04/06/2024 Ambulatory Visit Instructions Your Diagnosis History of bladder cancer Urinary retention BPH with urinary obstruction Your Care Team Attending Physician - ABRIL CASILLAS, Katia Macias Primary Care Physician - [...] Schedule the Following Appointments Follow Up with ABRIL CASILLAS, ADRIA Sterling When: Where: [facility] [address], [place] [address]- Medications What How Much When Instructions Unchanged [...] may (more content not included)...Normal [facility] 14-94-2120SyvdrgciaXrulxtktt From: Dana Rivas To: EU - Recalls Samuels; Sent: 02/20/2024 14:44:26 EDT Show up: 07/24/2024 14:44:00 EST Subject: Cysto/FISH/cytol, cath chng Due Date/Time: 08/16/2024 14:44:00 EDT Reminder/Recall Patient is due in September 2024 for 6 month cysto/fish/cytol, cath change (bt ck) Patient sched 10/05/24NoThe [facility]Health SystemUroVysion Fish and Urine Cyto ([facility])on 56-62-7619RNBK Method of ExtractionBladder WashNoThe MetroHealth SystemComment on above:Performed By: #### [id number] #### [facility] [address] [place], [place] [address]FPSE Number of Qxgv6Pgzrxdb Interpretation CodeAdena Fayette Medical CenterComment on above:Performed By: #### [id number] #### [facility] [address] [place], [place] [address]YUST SpecimenBladder WashACMC Healthcare System Glenbeigh Comment on above:Performed By: #### [id number] #### [facility] [address] [place], [place] [address]UUOE Type of ServiceTechnical OnlyACMC Healthcare System GlenbeighComment on above:Performed By: #### [id number] #### [facility] [address] [place], [place] [address]Majutem Office/Clinic Noteon 82-08-5348Ylyujos Office/Clinic NoteUrology Office/Clinic Note Chief Complaint cysto [...] going to start monthly zapien changes. [1] [facility] ER on 09/15/22 due to catheter clogged. Pt was diagnosed w/ UTI and treated w/ Cipro 500 mg BIDfor x 7 days. Attempted urocuff, pt was unable to void, PVR 348 cc, cath placed 10/04/22. [2] Pt has been in the ER multiple times due to issues with Zapien. Most recently, pt presented to [facility] ER 09/29/23 and 09/30/23 due to catheter not draining. [3] Cath changed IO today, see procedure section. 3. BPH with urinary obstruction (N40.1: Benign prostatic hyperplasia with lower urinary tract symptoms) S/p Rezum 06/10/23. Not taking any BPH meds. Maintained with chronic zapien, see #2. Follow-up With When Contact Information Katia SAMUELS MD, URL [facility] [address], [place] [address]- Additional Instructions: 6 mos surveillance cysto/bt ck/FISH/cytol Patient Education Indwelling Urinary Catheter Insertion, Care After Cancer Screening for Males I, Citlalli Rushing, personally scribed for Dr. Samuels on 04/06/2024 11:35:18. . Documentation recorded by the scribe, Citlalli Rushing, accurately reflects the services(s) I performed and decisions made by me. Authenticated by Dr. Samuels on 04/06/2024 11:36:29. Problem List/Past Medical History (more content not included)...[facility] GlenbeighComment on above: Result Comment: Electronically Signed By: Katia SAMUELS MD\\.br\\Date and Time Signed: 04/06/24 11:36 EST\\.br\\Electronically Co-Signed By: Citlalli Rushing\\.br\\Date and Time Co-Signed: 04/06/24 11:35 ESTITPon 93-58-7383Yua [address] [address] Cardiac Rehab Report Signed Patient: ALEX ANDERSON MR#: [id number] : 1945 Acct:[id number] Age/Sex: 78 / M ADM Date: 03/31/24 Loc: CR Attending Dr: TEO AL Ordering Physician: Martita Garnica D.O. Date of Service: 03/31/24 Procedure(s): ITP Accession Number(s): [id number] cc: [facility] Test Date: 2024-03-31 Pat Name: ALEX ANDERSON Department: Room: - Gender: Male Neuro Ophthalmologist: : 1945 Requested By: MARTITA GARNICA Order Number: [id number] Silverio MD: MARTITA GARNICA Interpretive Statements Session Date: Electronically Signed On 03-31-2024 20:54:52 EST by MARTITA GARNICA Dictated By: Martita Garnica D.O. Signed By: 03/31/24205403/31/242054 DD/ 1239 TD/TT: Title Vehicle Service Attendant:ALEMadiolIker brown, - 03/31/2024 [place] [address] Cardiac Rehab Report Signed Patient: ALEX ANDERSON MR#: [id number] : 1945 Acct:[id number] Age/Sex: 78 / M ADM Date: 03/31/24 Loc: CR Attending Dr: TEO AL Ordering Physician: Martita Garnica D.O. Date of Service: 03/31/24 Procedure(s): ITP Accession Number(s): [id number] cc: [facility] Test Date: 2024-03-31 Pat Name: ALEX ANDERSON Department: Room: - Gender: Male Neuro Ophthalmologist: : 1945 Requested By: MARTITA GARNICA Order Number: [id number] Silverio MD: MARTITA GARNICA Interpretive Statements Session Date: Electronically Signed On 03-31-2024 20:54:52 EST by MARTITA GARNICA Dictated By: Martita Garnica D.O. Signed By: 03/31/24205403/31/242054 DD/ 1239 TD/TT: Title Vehicle Service Attendant: MARSHAL HealthcareRadiology Study observation (narrative)MARSHAL HealthcareITPOrdered By: Radiologist Radiology on 32-21-9251UOOE Healthcare Work Phone: ITPon 26-04-1146[place] [address] Cardiac Rehab Report Signed Patient: ALEX ANDERSON MR#: [id number] : 1945 Acct:[id number] Age/Sex: 78 / M ADM Date: 03/24/24 Loc: CR Attending Dr: TEO AL Ordering Physician: Martita Garnica D.O. Date of Service: 03/24/24 Procedure(s): ITP Accession Number(s): [id number] cc: [facility] Test Date: 2024-03-24 Pat Name: ALEX ANDERSON Department: Room: - Gender: Male Neuro Ophthalmologist: : 1945 Requested By: MARTITA GARNICA Order Number: [id number] Silverio MD: MARTITA GARNICA Interpretive Statements Session Date: Electronically Signed On 03-24-2024 23:29:20 EDT by MARTITA GARNICA Dictated By: Martita Garnica D.O. Signed By: 03/24/24232803/24/242328 DD/ 114 TD/TT: Title Vehicle Service Attendant:KORINAHRadiology, Radiologist, - 03/24/2024 [place] [address] Cardiac Rehab Report Signed Patient: ALEX ANDERSON MR#: [id number] : 1945 Acct:[id number] Age/Sex: 78 / M ADM Date: 03/24/24 Loc: CR Attending Dr: TEO AL Ordering Physician: Martita Garnica D.O. Date of Service: 03/24/24 Procedure(s): ITP Accession Number(s): [id number] cc: [facility] Test Date: 2024-03-24 Pat Name: ALEX ANDERSON Department: Room: - Gender: Male Neuro Ophthalmologist: : 1945 Requested By: MARTITA GARNICA Order Number: [id number] Silverio CASILLAS: MARTITA GARNICA Interpretive Statements Session Date: Electronically Signed On 03-24-2024 23:29:20 EDT by MARTITA GARNICA Dictated By: Martita Garnica D.O. Signed By: 03/24/24232803/24/242328 DD/ 114 TD/TT: Title Vehicle Service Attendant: MARSHAL HealthcareRadiology Study observation (narrative)NOMS HealthcareITPOrdered By: Radiologist Radiology on 03-41-3049[facility] Work Phone: RT PULMONARY FUNCTION TESTon 99-49-1498[address] [address] Respiratory Report Signed Patient: ALEX ANDERSON MR#: [id number] : 1945 Acct:[id number] Age/Sex: 78 / M ADM Date: 03/23/24 Loc: CARD Attending Dr: TEO AL Ordering Physician: TEO AL Date of Service: 03/23/24 Procedure(s): RT pulmonary function test Accession Number(s): [id number] cc: [facility] Test Date: 2024-03-23 Pat Name: ALEX ANDERSON Department: Room: - Gender: Male Neuro Ophthalmologist: Reymundo Alamo RRT : 1945 Requested By: 358 Order Number: [id number] Reading MD: Aayush Gallo Interpretive Statements Pulmonary [...] By: Aayush Gallo D.O. Signed By: 03/24/24 8284 DD/ 1259 TD/TT: Title Vehicle Service Attendant:TBHRadiology, MD Iker - 03/24/2024 [place] [address] Respiratory Report Signed Patient: ALEX ANDERSON MR#: [id number] : 1945 Acct:[id number] Age/Sex: 78 / M ADM Date: 03/23/24 Loc: CARD Attending Dr: TEO AL Ordering Physician: TEO AL Date of Service: 03/23/24 Procedure(s): RT pulmonary function test Accession Number(s): [id number] cc: [facility] Test Date: 2024-03-23 Pat Name: ALEX ANDERSON Department: Room: - Gender: Male Neuro Ophthalmologist: Reymundo Alamo RRT : 1945 Requested By: 358 Order Number: [id number] Reading MD: Aayush Gallo Interpretive Statements Pulmonary [...] By: Aayush Gallo D.O. Signed By: 03/24/24 1757 DD/ 1259 TD/TT: Title Vehicle Service Attendant: MARSHAL Ma PULMONARY FUNCTION TESTOrdered By: Radiologist Radiology on 87-76-8691X[employer]W [employer] Work Phone: aLL HEMOGLOBINon 55-87-4668Eukoxdfyvy (Bld) [Mass/Vol] 9.5 g/dLLow14.0 - 18.0 g/dLNOMS HealthcareInterpretation and review of laboratory resultsAbnoAdena Regional Medical Center HealthcareCLINISYNCNSHARE MEDICAL C[facility] – ALVA HealthcareRT PULMONARY FUNCTION TESTon 67-31-2722Pouwflwbw Study observation (narrative)[facility] No Panel InformationOrdered By: Rosalie Bailey on 04-53-4301Wcyhx Strep (POC) [facility] Memorial HospitalXR chest 2V*on 67-02-5204FM chest 2V*[facility] [place] [address] [place] [address] XRay Report Signed Patient: Alex Anderson MR#: [id number] 38 : 1945 Acct:[id number] Age/Sex: 78 / M ADM Date: 03/08/24 Loc: XDUCLY Room: Type: [facility] Attending Dr: Rosalie Bailey APRN Copies [...] Corky Max M.D.03/08/2024 2:03 PM Dictation Location: [place] [address] Transcribed By: [facility] 03/08/24 140 Dictated By: Corky Max II, MD 03/08/24 140 Signed By: 03/08/24 140[facility] Physician GroupALL HEMOGLOBINon 03-04-2024 Hemoglobin (Bld) [Mass/Vol]10.0 g/dLLow14.0 - 18.0 g/dLNOMS Healthcare Interpretation and review of laboratory resultsAbnormalUTAH STATE HOSPITAL HealthcareCLINISYNC Christian HospitalReminderson 11-48-2329AhgwfetbtZoyplguoi From: Dana Rivas To: EU - Recalls [...] was notified ok to keep cysto on 04/06/24.[facility] HospitalECG 12 Leadon 55-60-7976ISF revealed normal sinus rhythm, left axis deviation, 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, QT prolongation, IVCDCPAMercy Health Fairfield Hospital Work Phone: bacteria [Presence] in Urine by AutomatedOrdered By: Rob Almazan on 09-98-2975Rzwldiqb Auto Ql (U)Rare [HPF]None Seen [facility] Memorial HospitalBilirubin Test strip Ql (U)Ordered By: Rob Almazan on 31-89-5963Ysiwahuzh Ql (U)NegativeNegativePromedica Memorial HospitalColor of Urine by AutoOrdered By: Rob Almazan on 19-59-8162Ickgg (U)YellowNormalYellowPromedica Memorial HospitalComment on above:Order Comment: Name Collection Type:: Zapien CatheterPerformed By: #### ADDONUAPLUS, CUU #### [facility] [address] [place] [address] USADipstick and Microscopicon 85-64-9992Wcuedbcl,UrineRare NormalNone SeenThe [facility] Physician GroupComment on above:Order Comment: Name Collection Type:: Zapien CatheterPerformed By: #### ADDONUAPLUS, CUU #### [place] [address] [address] USABilirubin,UrineNegativeNormalNegativeThe [facility] Physician GroupComment on above:Order Comment: Name Collection Type:: Zapien CatheterPerformed By: #### ADDONUAPLUS, CUU #### [address] [address] USAGlucose Ql (U)NormalNormalNormalThe [facility] Physician GroupComment on above:Order Comment: Name Collection Type:: Zapien Catheter Performed By: #### ADDONUAPLUS, CUU #### [address] [address] USAHyaline Casts,UrineNoneNormal0-8The [facility] Physician GroupComment on above:Order Comment: Name Collection Type:: Zapien Catheter Performed By: #### ADDONUAPLUS, CUU #### [place] [id number] USAMucus,UrineRareNormalThe [facility] Physician GroupComment on above:Order Comment: Name Collection Type:: Zapien CatheterResult Comment: PERFORMED BY: [place] [address] PATHOLOGIST PORTAINER OPERATOR OREN OWEN M.D.Performed By: #### ADDZACPLUS, CUU #### [address] [address] USANitrite,UrineNegativeNormalNegativeHca Florida [facility] Hospital Physician GroupComment on above:Order Comment: Name Collection Type:: Zapien Catheter Performed By: #### ADDONUAPLUS, CUU #### [address] [address] USAOccult Blood,Urine2+HighNegativeThe [facility] Physician GroupComment on above:Order Comment: Name Collection Type:: Zapien CatheterResult Comment: PERFORMED BY: [place] [address] PATHOLOGIST PORTAINER OPERATOR OREN OWEN M.D.Performed By: #### ADDONUAPLUS, CUU #### [place] [id number] USAProtein,UrineTraceHighNegativeHca Florida [facility] Hospital Physician GroupComment on above:Order Comment: Name Collection Type:: Zapien Catheter Performed By: #### ADDONUAPLUS, CUU #### [facility] [address] [place] [place] [address] USARBC,Opxay32-43Hfez5-4Usg [facility] Physician GroupComment on above:Order Comment: Name Collection Type:: Zapien CatheterPerformed By: #### ADDONUAPLUS, CUU #### [facility] [address] [place] [address] USASpecificy Mesa,Urine1.187Nycrvs2.001-1.030[facility] Physician GroupComment on above:Order Comment: Name Collection Type:: Zapien CatheterPerformed By: #### ADDONUAPLUS, CUU #### [address] [address] USAUrobilinogen,Urine2 mg/dLHighNormalThe [facility] Physician GroupComment on above:Order Comment: Name Collection Type:: Zapien Catheter Performed By: #### ADDONUAPLUS, CUU #### [facility] [address] [place] [place] [address] USAWBC CLUMP, UrineRareHighNone SeenHca Florida Northwest Hospital Physician GroupComment on above:Order Comment: Name Collection Type:: Zapien Catheter Performed By: #### ADDONUAPLUS, CUU #### [facility] [address] [place] [address] USAWBC,Hnvuz87-70Ndwd5-5Sdl [facility] Physician GroupComment on above:Order Comment: Name Collection Type:: Zapien CatheterPerformed By: #### ADDONUAPLUS, CUU #### [facility] [address] [place] [address] USAECG 12 lead ECGon 50-60-8524YAX 12 lead ECGTRIHEALTH [facility] [place] [address] [place] [address] Electrocardiograph Report Signed Patient: Alex Anderson MR#: [id number] 38 : 1945 Acct:[id number] Age/Sex: 78 / M ADM Date: 01/16/24 Loc: 4P Room: 5W8147-5 Type: ADM IN Attending Dr: Nas Pruett [...] Acute Anteroseptal infarct Lateral injury pattern ACUTE TX / STEMI Abnormal ECG When compared with ECG of 19-Jan-2024 07:09, Serial changes of Anteroseptal infarct present Confirmed by Misael Campbell ([id number]) on 01/23/2024 11:36:17 AM Referred By: Electronically Signed By: Misael Campbell Transcribed By: MUS Signed By Misael Campbell MD 01/23/[address] [place] [address] Physician GroupEpithelial cells.squamous [#/area] in Urine sediment by Automated countOrdered By: Rob Almazan on 62-01-9454Yytmbuvxdh cells.squamous Auto (Urine sed) [#/Area]N/[facility] HospitalErythrocytes [#/area] in Urine sediment by Automated countOrdered By: Rob Almazan on 35-69-4055BYB Auto (Urine sed) [#/Area] 20-49 [HPF]High0-4FTriHealth Bethesda North HospitalGlucose [Mass/volume] in Urine by Test stripOrdered By: Rob Almazan on 25-76-1722Nrzezcb Test strip (U) [Mass/Vol]Normal mg/dLNormalPromedica Memorial Hospital Hemoglobin Test strip Ql (U)Ordered By: Rob Almazan on 01-23-2024 Hemoglobin Ql (U)2+HighNegativePromedica Memorial HospitalHyaline casts [#/area] in Urine sediment by Automated countOrdered By: Rob Almazan on 07-27-0891Ojkxfeg casts Auto (Urine sed) [#/Area]None [LPF]0-8[facility] Memorial HospitalKetones [Presence] in Urine by Test stripOrdered By: Rob Almazan on 54-59-3258Oyblshq Ql (U)NegativeNormalNegSelect Medical Cleveland Clinic Rehabilitation Hospital, Edwin ShawComment on above:Order Comment: Name Collection Type:: Zapien CatheterPerformed By: #### HETALUAPLUS, CUU #### [facility] [address] [place] [id number] USALeukocyte clumps [Presence] in Urine by AutomatedOrdered By: Rob Almazan on 15-03-2221Rrlzczrue clumps Auto Ql (U)Rare [LPF]High None SeenPromedica Memorial HospitalLeukocyte esterase [Presence] in Urine by Test stripOrdered By: Rob Almazan on 57-83-1109Bqbtqusmp esterase Test strip Ql (U)4+HighNegSelect Medical Cleveland Clinic Rehabilitation Hospital, Edwin ShawComment on above:Order Comment: Name Collection Type:: Zapien CatheterPerformed By: #### LBAKE, CUU #### [facility] [address] [place] [id number] USALeukocytes [#/area] in Urine sediment by Automated count Ordered By: Rob Almazan on 09-17-9817KYZ Auto (Urine sed) [#/Area]20-49 [HPF]High0-4FTriHealth Bethesda North HospitalMucus [Presence] in Urine by AutomatedOrdered By: Rob Almazan on 37-00-2786Eerya Auto Ql (U)Rare [LPF][facility] Memorial HospitalNitrite Test strip Ql (U)Ordered By: Rob Almazan on 69-12-2065Odrfgfb Ql (U)NegativeNegSelect Medical Cleveland Clinic Rehabilitation Hospital, Edwin ShawProtein Test strip (U) [Mass/Vol]Ordered By: Rob Almazan on 58-56-3419Tqkkhzl (U) [Mass/Vol]Trace mg/dLHighNegUniversity Hospitals Beachwood Medical Centerpecific gravity Test strip (U) [Rel density]Ordered By: Rob Almazan on 36-73-6393Przezywg gravity (U) [Rel density]1.022 1.001-1.030Prom[facility] Memorial HospitalUrine Cultureon 90-03-3989Amlvlbyq identified Cx Nom (U)ORGANISM: Enterococcus faecalis (O:ENTFAC) [place] Count 30,000 Aerobic RITESH Charge (PCMIC38) SUSCEPTIBILITY [...] RESISTANT TO ALL B-LACTAM DRUGS. PERFORMED BY: [place] [address] PATHOLOGIST PORTAINER OPERATOR OREN OWEN M.D.[facility] Physician GroupComment on above:Performed By: #### JHONNY LOZANO #### [facility] [address] [place], [place] [address]Urine appearanceOrdered By: Rob Almazan on 63-45-8442Tpqvhzpsng (U)ClearNoMiami Valley HospitalComment on above:Order Comment: Name Collection Type:: Zapien CatheterPerformed By: #### BLAKE CUU #### [facility] [address] [place], [place] [address]Urine culture routineOrdered By: Rob Almazan on 59-02-0154Ojivhgts identified Cx Nom (U)Enterococcus faecalisAbMetroHealth Main Campus Medical CenterUrobilinogen Test strip (U) [Mass/Vol]Ordered By: Rob Almazan on 97-69-3461Jwbcutuujzje (U) [Mass/Vol]2 mg/dLHighNormal [facility] HospitalpH of Urine by Test stripOrdered By: Rob Almazan on 46-35-0644xI (U)5.5 [pH]Normal5.0-9.0Prom[facility] Memorial HospitalComment on above:Order Comment: Name Collection Type:: Zapien Catheter Performed By: #### BLAKE, CUU #### [place] [address] USAAutomated basophil %Ordered By: Nas Pruett on 01-21-2024 Basophils/100 WBC (Bld)0.5 %Normal.Prom[facility]ica Memorial HospitalComment on above:Performed By: #### PTT, PT #### [place] [address] USAAutomated basophil countOrdered By: Nas Pruett on 90-83-8643Vgycwjxaj (Bld) [#/Vol]0.0 10*3/uLNormal0.0-0.2FTriHealth Bethesda North HospitalComment on above:Result Comment: PERFORMED BY: [place] [address] PATHOLOGIST PORTAINER OPERATOR OREN OWEN M.D.Performed By: #### PTT, PT #### [place] [address] USAAutomated blood monocyte countOrdered By: Nas Pruett on 70-34-1214Ztwtprvvj (Bld) [#/Vol]1.4 10*3/uLHigh0.0-0.8Prom[facility] Memorial HospitalComment on above:Performed By: #### PTT, PT #### [place] [address] USAAutomated eosinophil %Ordered By: Nas Pruett on 01-21-2024 Eosinophils/100 WBC (Bld)3.6 %Normal.[facility] Memorial HospitalComment on above:Performed By: #### PTT, PT #### [place] [address] USAAutomated eosinophil countOrdered By: Nas Pruett on 38-24-2373Ksmwzrbrmfv (Bld) [#/Vol]0.3 10*3/uLNormal0.0-0.45Prom[facility] Memorial HospitalComment on above:Performed By: #### PTT, PT #### [place] [address] USAAutomated monocyte %Ordered By: Nas Pruett on 01-21-2024 Monocytes/100 WBC (Bld)16.0 %Normal.[facility] Memorial HospitalComment on above:Performed By: #### PTT, PT #### [facility] [address] [place] [address] USAAutomated neutrophil %Ordered By: Nas Pruett on 01-21-2024 Neutrophils/100 WBC (Bld)64.3 %Normal.[facility] Memorial HospitalComment on above:Performed By: #### PTT, PT #### [place] [address] USABasic Metabolic Panelon 77-92-2959Lfnuthbgqe Clr Calc Prirmtxm42.56NormHCA Florida Poinciana Hospital Physician GroupComment on above:Result Comment: PERFORMED BY: [place] [address] PATHOLOGIST PORTAINER OPERATOR OREN OWEN M.D.Performed By: #### PTT, PT #### [place] [address] USAGFR/1.73 sq M.predicted MDRD (S/P/Bld) [Vol rate/Area] 43.613 mL/min/{1.73_m2}NormalThe [facility] Physician [facility] Woman'S HospitalComment on above: Performed By: #### PTT, PT #### [address] [address] USACalcium [Mass/volume] in Serum or PlasmaOrdered By: Nas Pruett on 03-52-8498Ajmuuuo [Mass/Vol]8.5 mg/dLLow8.6-10.3FTriHealth Bethesda North HospitalComment on above:Performed By: #### PTT, PT #### [place] [address] USACarbon dioxide, total [Moles/volume] in Serum or Plasma Ordered By: Nas Pruett on 16-45-9843RQ3 [Moles/Vol]20.1 mmol/LLow21.0-31.0 [facility] Memorial HospitalComment on above:Performed By: #### PTT, PT #### [place] [address] USAChloride [Moles/volume] in Serum or PlasmaOrdered By: Nas Pruett on 90-71-2856Luuzhumf [Moles/Vol]107 mmol/WTgunxv45-102VrvwlhmgzPromedica Memorial HospitalComment on above:Performed By: #### PTT, PT #### [place] [address] USAComplete Blood Count Auto Diffon 05-78-9919Zniy Corpuscular HGB Conc32.9 g/kGNgkogi48.5-35.6The [facility] Physician GroupComment on above:Performed By: #### PTT, PT #### [place] [address] USANRBC%0.1 /100{WBC}Normal0-0.5The [facility] Physician Group Comment on above:Performed By: #### PTT, PT #### [place] [address] USACreatinine [Mass/volume] in Serum or PlasmaOrdered By: Nas Pruett on 16-33-4066Pehmeahceq [Mass/Vol]1.59 mg/dLHigh0.70-1.30Prom[facility] Memorial HospitalComment on above:Performed By: #### PTT, PT #### [place] [address] USAErythrocyte distribution width [Ratio] by Automated count Ordered By: Nas Pruett on 77-42-7661Eyblijyhfgn distribution width (RBC) [Ratio] 15.6 %High12.0-14.8Prom[facility] Memorial HospitalComment on above:Performed By: #### PTT, PT #### [place] [address] USAErythrocytes [#/volume] in Blood by Automated countOrdered By: Nas Pruett on 36-53-7373HHX (Bld) [#/Vol]4.33 10*6/uLNormal3.90-5.60 [facility] HospitalComment on above:Performed By: #### PTT, PT #### [facility] [address] [place] [address] USAGlucose [Mass/volume] in Serum or PlasmaOrdered By: Nas Pruett on 40-69-3192Twlpljl [Mass/Vol]121 mg/lAUusj02-646QrbhrvrqzPromedica Memorial HospitalComment on above:ADA recommended reference rangeRandom Glucose [...] reference rangePerformed By: #### PTT, PT #### [place] [phone] USAHematocrit [Volume Fraction] of Blood by Automated count Ordered By: Nas Pruett on 06-26-7907Hltslbwytx (Bld) [Volume fraction]37.1 %Low 38.8-50.0[facility] Memorial HospitalComment on above:Performed By: #### PTT, PT #### [address] [address] USAHemoglobin [Mass/volume] in BloodOrdered By: Nas Pruett on 07-30-2614Podjrclier (Bld) [Mass/Vol]12.2 g/dLLow13.0-17.0[facility] Memorial HospitalComment on above:Performed By: #### PTT, PT #### [place] [phone] USALeukocytes [#/volume] corrected for nucleated erythrocytes in Blood by Automated counOrdered By: Nas Pruett on 25-81-9814ASX corrected for nucl RBC Auto (Bld) [#/Vol]8.8 10*3/uL4.1-10.5FTriHealth Bethesda North Hospital Leukocytes [#/volume] in Blood by Automated countOrdered By: Nas Pruett on 94-85-8180LSZ (Bld) [#/Vol]8.8 10*3/uLNormal4.1-10.5FTriHealth Bethesda North HospitalComment on above:Performed By: #### PTT, PT #### [place] [address] USALymphocytes [#/volume] in Blood by Automated countOrdered By: Nas Pruett on 11-95-9489Anxseklypmz (Bld) [#/Vol]1.4 10*3/uLNormal1.00-4.8 [facility] HospitalComment on above:Performed By: #### PTT, PT #### [place] [address] USALymphocytes/100 leukocytes in Blood by Automated count Ordered By: Nas Pruett on 81-04-2853Reoguhcadld/100 WBC (Bld)15.6 %Normal. [facility] Memorial HospitalComment on above:Performed By: #### PTT, PT #### [facility] [address] [place], [place] [address]MCH [Entitic mass] by Automated countOrdered By: Nas Pruett on 71-76-1948YYQ (RBC) [Entitic mass]28.1 biPvujiz69.5-35.2FTriHealth Bethesda North HospitalComment on above:Performed By: #### PTT, PT #### [facility] [address] [place], [place] [address]HC Auto (RBC) [Mass/Vol]Ordered By: Nas Pruett on 58-58-6203KMUP (RBC) [Mass/Vol]32.9 g/dL32.5-35.6FTriHealth Bethesda North HospitalMCV [Entitic volume] by Automated countOrdered By: Nas Pruett on 01-21-2024 MCV (RBC) [Entitic vol]85.6 qBCtqdgz00.5-101[facility] Comment on above:Performed By: #### PTT, PT #### [facility] [address] [place] [address] USANeutrophils [#/volume] in Blood by Automated countOrdered By: Nas Pruett on 22-53-2585Kcqgczisxwm (Bld) [#/Vol]5.7 10*3/uLNormal1.8-7.7 [facility] HospitalComment on above:Performed By: #### PTT, PT #### [facility] [address] [place] [address] USANo Panel InformationOrdered By: Nas Pruett on 01-21-2024 Estimated GFR (CKD-EPI)43.613 mL/MinPromedica Memorial HospitalPharmacy Creatinine Clearance (Chem46.56Prom[facility]ica Memorial HospitalNucleated erythrocytes [Presence] in Blood by Automated countOrdered By: Nas Pruett on 13-75-2622Quifmcsiz RBC Auto Ql (Bld)0.1 /100{WBC}0-0.5FTriHealth Bethesda North HospitalPlatelet mean volume [Entitic volume] in Blood by Automated count Ordered By: Nas Pruett on 71-09-4826Gpowydnq mean volume (Bld) [Entitic vol]8.4 fLNormal6.6-10.1FTriHealth Bethesda North HospitalComment on above:Performed By: #### PTT, PT #### [facility] [address] [place] [address] USAPlatelets [#/volume] in Blood by Automated countOrdered By: Nas Pruett on 73-03-8745Ovtfkslhc (Bld) [#/Vol]221 10*3/zIUgjopy623-466 [facility] HospitalComment on above:Performed By: #### PTT, PT #### [facility] [address] [place] [address] USAPotassium [Moles/volume] in Serum or PlasmaOrdered By: Nas Pruett on 83-64-2177Cgleychtm [Moles/Vol]3.9 mmol/LNormal3.5-5.1FTriHealth Bethesda North HospitalComment on above:Performed By: #### PTT, PT #### [facility] [address] [place] [address] USASerum or plasma anion gap determinationOrdered By: Nas Pruett on 90-82-5862Hyakf gap [Moles/Vol]13.8 mmol/LNormal6.0-15.0[facility] Memorial HospitalComment on above:Performed By: #### PTT, PT #### [facility] [address] [place] [address] USASodium [Moles/volume] in Serum or PlasmaOrdered By: Nas Pruett on 81-65-2642Rbvtnk [Moles/Vol]137 mmol/NVwsrrv886-474WnfiscyklPromedica Memorial HospitalComment on above:Performed By: #### PTT, PT #### [facility] [address] [place] [address] USAUrea nitrogen [Mass/volume] in Serum or PlasmaOrdered By: Nas Pruett on 06-09-3580Tmin nitrogen [Mass/Vol]35 mg/dLHigh7-25Prom[facility] Memorial HospitalComment on above:Performed By: #### PTT, PT #### [place] [address] USABasic Metabolic Panelon 62-54-2836Kgnyv gap [Moles/Vol] 12.0 mmol/LNormal6.0-15.0The [facility] Physician GroupComment on above:Performed By: #### BLAKE, CUU #### [place] [address] USACalcium [Mass/Vol]8.4 mg/dLLow8.6-10.3The [facility] Physician GroupComment on above:Performed By: #### BLAKE, CUU #### [place] [address] USAChloride [Moles/Vol]107 mmol/TEnyogh09-065Psx [facility] Physician GroupComment on above:Performed By: #### BLAKE, CUU #### [place] [address] USACO2 [Moles/Vol]19.5 mmol/LLow21.0-31.0The [facility] Physician GroupComment on above:Performed By: #### BLAKE, CUU #### [address] [address] USACreatinine [Mass/Vol]1.50 mg/dLHigh0.70-1.30The [facility] Physician GroupComment on above:Performed By: #### BLAKE CUU #### [place] [address] USACreatinine Clr Calc Ohddsslh99.40NormalThe [facility] Physician GroupComment on above:Result Comment: PERFORMED BY: [place] [address] PATHOLOGIST PORTAINER OPERATOR OREN OWEN M.D.Performed By: #### BLAKE CUU #### [place] [address] USAGFR/1.73 sq M.predicted MDRD (S/P/Bld) [Vol rate/Area] 46.772 mL/min/{1.73_m2}NormalThe [facility] Physician GroupComment on above: Performed By: #### BLAKE CUU #### [place] [address] USAGlucose [Mass/Vol]136 mg/tFLejq79-660Yhg [facility] Physician GroupComment on above:Result Comment: Random Glucose Reference Range is dependent on time and content of last meal. Glucose of more than 200 mg/dL in a nonstressed, ambulatory subject supports the diagnosis of Diabetes Mellitus. ADA recommended reference rangePerformed By: #### BLAKE CUU #### [place] [address] USAPotassium [Moles/Vol]3.5 mmol/LNormal3.5-5.1The [facility] Physician GroupComment on above:Performed By: #### BLAKE CUU #### [place] [address] USASodium [Moles/Vol]135 mmol/WFoh533-430Rsw [facility] Physician GroupComment on above:Performed By: #### BLAKE, CUU #### [place] [address] USAUrea nitrogen [Mass/Vol]32 mg/dLHigh7-25The [facility] Physician GroupComment on above:Performed By: #### MAISHA LOZANOU #### [place] [address] USAComplete Blood Count Auto Diffon 20-86-9142Mippuyosr (Bld) [#/Vol]0.0 10*3/uLNormal0.0-0.2The [facility] Physician GroupComment on above: Result Comment: PERFORMED BY: [place] [address] PATHOLOGIST PORTAINER OPERATOR OREN OWEN M.D.Performed By: #### MAISHA LOZANOU #### [place] [address] USABasophils/100 WBC (Bld)0.3 %Normal.The [facility] Physician GroupComment on above:Performed By: #### MAISHA LOZANOU #### [place] [address] USAEosinophils (Bld) [#/Vol]0.2 10*3/uLNormal0.0-0.45The [facility] Physician GroupComment on above:Performed By: #### BLAKE CUU #### [place] [address] USAEosinophils/100 WBC (Bld)1.7 %Normal.The [facility] Physician GroupComment on above:Performed By: #### BLAKE CUU #### [place] [address] USAErythrocyte distribution width (RBC) [Ratio]15.4 %High 12.0-14.8The [facility] Physician GroupComment on above:Performed By: #### BLAKE CUU #### [place] [address] USAHematocrit (Bld) [Volume fraction]37.6 %Low38.8-50.0The [facility] Physician GroupComment on above:Performed By: #### BLAKE CUU #### [place] [address] USAHemoglobin (Bld) [Mass/Vol]12.5 g/dLLow13.0-17.0The [facility] Physician GroupComment on above:Performed By: #### BLAKE, CUU #### [place] [place] [address] USALymphocytes (Bld) [#/Vol]1.1 10*3/uLNormal1.00-4.8The [facility] Physician GroupComment on above:Performed By: #### BLAKE CUU #### [place] [address] USALymphocytes/100 WBC (Bld)11.8 %Normal.The [facility] Physician GroupComment on above:Performed By: #### BLAKE CUU #### [address] StreetMCH (RBC) [Entitic mass]28.5 jvVbkjet49.5-35.2The [facility] Physician GroupComment on above:Performed By: #### BLAKE CUU #### [place] [address] USAMCV (RBC) [Entitic vol]85.9 xJXclorg27.5-101The [facility] Physician GroupComment on above:Performed By: #### BLAKE CUU #### [place] [address] USAMean Corpuscular HGB Conc33.2 g/iYAwzxoe98.5-35.6The [facility] Physician GroupComment on above:Performed By: #### BLAKE, CUU #### [place] [address] USAMonocytes (Bld) [#/Vol]1.4 10*3/uLHigh0.0-0.8The [facility] Physician GroupComment on above:Performed By: #### BLAKE, CUU #### [address] [place] [address] USAMonocytes/100 WBC (Bld)14.3 %Normal.The [facility] Physician GroupComment on above:Performed By: #### BLAKE, CUU #### [place] [address] USANeutrophils (Bld) [#/Vol]6.8 10*3/uLNormal1.8-7.7The [facility] Physician GroupComment on above:Performed By: #### BLAKE, CUU #### [place] [address] USANeutrophils/100 WBC (Bld)71.9 %Normal.The [facility] Physician GroupComment on above:Performed By: #### BLAKE, CUU #### [place] [address] USANRBC%0.0 /100{WBC}Normal0-0.5[facility] Comment on above:Performed By: #### BLAKE, CUU #### [place] [address] USAPlatelet mean volume (Bld) [Entitic vol]8.3 fLNormal 6.6-10.1The [facility] Physician GroupComment on above:Performed By: #### BLAKE, CUU #### [place] [address] USAPlatelets (Bld) [#/Vol]202 10*3/gWKaiqfp877-777Ayt [facility] Physician GroupComment on above:Performed By: #### BLAKE, CUU #### [place] [address] USARBC (Bld) [#/Vol]4.38 10*6/uLNormal3.90-5.60The [facility] Physician GroupComment on above:Performed By: #### BLAKE, CUU #### [place] [address] USAWBC (Bld) [#/Vol]9.5 10*3/uLNormal4.1-10.5The [facility] Physician GroupComment on above:Performed By: #### JHONNY LOZANO #### [place] [address] USAMagnesium [Mass/volume] in Serum or PlasmaOrdered By: Isaac Edwards on 76-73-8950Phjzaccfd [Mass/Vol]2.1 mg/dLNormal1.9-2.7 [facility] Memorial HospitalComment on above:Result Comment: PERFORMED BY: [place] [address] PATHOLOGIST PORTAINER OPERATOR OREN OWEN M.D.Performed By: #### JHONNY LOZANO #### [place] [address] USABasic Metabolic Panelon 97-97-4015Ioxzt gap [Moles/Vol] 11.7 mmol/LNormal6.0-15.0The [facility] Physician GroupComment on above:Performed By: #### [facility] #### [place] [address] USACalcium [Mass/Vol]8.5 mg/dLLow8.6-10.3The [facility] Physician GroupComment on above:Performed By: #### [facility] #### [place] [address] USAChloride [Moles/Vol]106 mmol/LMvgsjw66-924Obw [facility] Physician GroupComment on above:Performed By: #### [facility] #### [facility] [address] [place] [address] USACO2 [Moles/Vol]19.9 mmol/LLow21.0-31.0The [facility] Physician GroupComment on above:Performed By: #### [facility] #### [place] [address] USACreatinine [Mass/Vol]1.62 mg/dLHigh0.70-1.30The [facility] Physician GroupComment on above:Performed By: #### [facility] #### [place] [address] USACreatinine Clr Calc Mfnukcsc28.28NormalThe [facility] Physician GroupComment on above:Result Comment: PERFORMED BY: [place] [address] PATHOLOGIST PORTAINER OPERATOR OREN OWEN M.D.Performed By: #### [facility] #### [place] [address] USAGFR/1.73 sq M.predicted MDRD (S/P/Bld) [Vol rate/Area] 42.646 mL/min/{1.73_m2}NormalThe [facility] Physician GroupComment on above: Performed By: #### [facility] #### [place] [address] USAGlucose [Mass/Vol]145 mg/tZHsuw66-757Ewl [facility] Physician GroupComment on above:Result Comment: Random Glucose Reference Range is dependent on time and content of last meal. Glucose of more than 200 mg/dL in a nonstressed, ambulatory subject supports the diagnosis of Diabetes Mellitus. ADA recommended reference rangePerformed By: #### [facility] #### [place] [address] USAPotassium [Moles/Vol]3.6 mmol/LNormal3.5-5.1The [facility] Physician GroupComment on above:Performed By: #### [facility] #### [place] [address] USASodium [Moles/Vol]134 mmol/KHbg995-353Mxm [facility] Physician GroupComment on above:Performed By: #### [facility] #### [place] [address] USAUrea nitrogen [Mass/Vol]32 mg/dLHigh7-25The [facility] Physician GroupComment on above:Performed By: #### [facility] #### [place] [address] USAComplete Blood Count Auto Diffon 14-08-0336Ytwxfrcer (Bld) [#/Vol]0.0 10*3/uLNormal0.0-0.2The [facility] Physician GroupComment on above: Result Comment: PERFORMED BY: [place] [address] PATHOLOGIST PORTAINER OPERATOR OREN OWEN M.D.Performed By: #### BLAKE CUU #### [place] [address] USABasophils/100 WBC (Bld)0.4 %Normal.The [facility] Physician GroupComment on above:Performed By: #### BLAKE CUU #### [place] [address] USAEosinophils (Bld) [#/Vol]0.0 10*3/uLNormal0.0-0.45The [facility] Physician GroupComment on above:Performed By: #### BLAKE CUU #### [place] [address] USAEosinophils/100 WBC (Bld)0.4 %Normal.The [facility] Physician GroupComment on above:Performed By: #### BLAKE CUU #### [place] [address] USAErythrocyte distribution width (RBC) [Ratio]15.6 %High 12.0-14.8The [facility] Physician GroupComment on above:Performed By: #### BLAKE CUU #### [place] [address] USAHematocrit (Bld) [Volume fraction]37.1 %Low38.8-50.0The [facility] Physician GroupComment on above:Performed By: #### BLAKE CUU #### [place] [address] USAHemoglobin (Bld) [Mass/Vol]12.3 g/dLLow13.0-17.0The [facility] Physician GroupComment on above:Performed By: #### ADDONUAPLUS, CUU #### [place] [address] USALymphocytes (Bld) [#/Vol]1.0 10*3/uLNormal1.00-4.8The [facility] Physician GroupComment on above:Performed By: #### BLAKE, CUU #### [place] [address] USALymphocytes/100 WBC (Bld)8.8 %Normal.The [facility] Physician GroupComment on above:Performed By: #### BLAKE, CUU #### [address] (RBC) [Entitic mass]28.6 zuWlqtte10.5-35.2The [facility] Physician GroupComment on above:Performed By: #### BLAKE CUU #### [address] (RBC) [Entitic vol]86.5 tPFwhjyt40.5-101The [facility] Physician GroupComment on above:Performed By: #### BLAKE CUU #### [place] [address] USAMean Corpuscular HGB Conc33.0 g/jATxbrrg34.5-35.6The [facility] Physician GroupComment on above:Performed By: #### BLAKE, CUU #### [place] [address] USAMonocytes (Bld) [#/Vol]1.3 10*3/uLHigh0.0-0.8The [facility] Physician GroupComment on above:Performed By: #### BLAKE, CUU #### [place] [address] USAMonocytes/100 WBC (Bld)11.9 %Normal.The [facility] Physician GroupComment on above:Performed By: #### BLAKE, CUU #### [place] [address] USANeutrophils (Bld) [#/Vol]8.6 10*3/uLHigh1.8-7.7The [facility] Physician GroupComment on above:Performed By: #### BLAKE, CUU #### [facility] [address] [place] [address] USANeutrophils/100 WBC (Bld)78.5 %Normal.The [facility] Physician GroupComment on above:Performed By: #### BLAKE, CUU #### [facility] [address] [place] [address] USANRBC%0.1 /100{WBC}Normal0-0.5The [facility] Comment on above:Performed By: #### BLAKE, CUU #### [facility] [address] [place] [address] USAPlatelet mean volume (Bld) [Entitic vol]8.9 fLNormal 6.6-10.1The [facility] Physician GroupComment on above:Performed By: #### BLAKE, CUU #### [facility] [address] [place] [address] USAPlatelets (Bld) [#/Vol]165 10*3/uTRssavo589-768Oer [facility] Physician GroupComment on above:Performed By: #### BLAKE, CUU #### [facility] [address] [place] [address] USARBC (Bld) [#/Vol]4.30 10*6/uLNormal3.90-5.60The [facility] Physician GroupComment on above:Performed By: #### BLAKE, CUU #### [facility] [address] [place] [address] USAWBC (Bld) [#/Vol]11.0 10*3/uLHigh4.1-10.5The [facility] Physician GroupComment on above:Performed By: #### BLAKE, CUU #### [facility] [address] [place] [address] USAECG 12 lead ECGon 58-50-2098MYW 12 lead ECGTRIHE[facility] [place] [address] [place] [address] Electrocardiograph Report Signed Patient: Alex Anderson MR#: [id number] 36 : 1945 Acct:[id number] Age/Sex: 78 / M ADM Date: 01/16/24 Loc: Room: [address] [place] [address] Type: ADM IN Attending Dr: Nas Pruett [...] or before 16-Jan-2024) Inferolateral injury pattern ACUTE TX / STEMI Abnormal ECG When compared with ECG of 18-Jan-2024 07:08, No significant change was found Confirmed by Misael Campbell ([id number]) on 01/20/2024 10:18:21 PM Referred By: Electronically Signed By: Misael Campbell Transcribed By: MUS Signed By Misael Campbell MD 01/20/24 2218[facility] Physician GroupBasic Metabolic Panelon 33-50-9054Iyauj gap [Moles/Vol]11.5 mmol/LNormal6.0-15.0The [facility] Physician GroupComment on above:Performed By: #### CBC, BMP #### [facility] [address] [place] [id number] USACalcium [Mass/Vol]8.7 mg/dLNormal8.6-10.3The [facility] Physician GroupComment on above:Performed By: #### CBC, BMP #### [facility] [address] [place] [address] USAChloride [Moles/Vol]107 mmol/FFirgkr38-644Zch [facility] Physician GroupComment on above:Performed By: #### CBC, BMP #### [facility] [address] [place] [address] USACO2 [Moles/Vol]21.2 mmol/ARczdnw78.0-31.0The [facility] Physician GroupComment on above:Performed By: #### CBC, BMP #### [facility] [address] [place] [address] USACreatinine [Mass/Vol]1.59 mg/dLHigh0.70-1.30The [facility] Physician GroupComment on above:Performed By: #### CBC, BMP #### [place] [address] USACreatinine Clr Calc Beolnpgr77.65NormalThe [facility] Physician GroupComment on above:Result Comment: PERFORMED BY: [place] [address] PATHOLOGIST PORTAINER OPERATOR OREN OWEN M.D.Performed By: #### CBC, BMP #### [place] [address] USAGFR/1.73 sq M.predicted MDRD (S/P/Bld) [Vol rate/Area] 43.613 mL/min/{1.73_m2}NormalThe [facility] Physician GroupComment on above: Performed By: #### CBC, BMP #### [place] [address] USAGlucose [Mass/Vol]125 mg/aXGant39-544Kxx [facility] Physician GroupComment on above:Result Comment: Random Glucose Reference Range is dependent on time and content of last meal. Glucose of more than 200 mg/dL in a nonstressed, ambulatory subject supports the diagnosis of Diabetes Mellitus. ADA recommended reference rangePerformed By: #### CBC, BMP #### [place] [address] USAPotassium [Moles/Vol]3.7 mmol/LNormal3.5-5.1The [facility] Physician GroupComment on above:Performed By: #### CBC, BMP #### [place] [address] USASodium [Moles/Vol]136 mmol/WDfavtf354-420Ltr [facility] Physician GroupComment on above:Performed By: #### CBC, BMP #### [place] [address] USAUrea nitrogen [Mass/Vol]29 mg/dLHigh7-25The [facility] Physician GroupComment on above:Performed By: #### CBC, BMP #### [place] [address] USAComplete Blood Count Auto Diffon 60-56-3477Ykcpeecwp (Bld) [#/Vol]0.0 10*3/uLNormal0.0-0.2The [facility] Physician GroupComment on above: Result Comment: PERFORMED BY: [place] [address] PATHOLOGIST PORTAINER OPERATOR OREN OWEN M.D.Performed By: #### CBC, BMP #### [place] [address] USABasophils/100 WBC (Bld)0.4 %Normal.The [facility] Physician GroupComment on above:Performed By: #### CBC, BMP #### [place] [address] USAEosinophils (Bld) [#/Vol]0.0 10*3/uLNormal0.0-0.45The [facility] Physician GroupComment on above:Performed By: #### CBC, BMP #### [place] [address] USAEosinophils/100 WBC (Bld)0.2 %Normal.The [facility] Physician GroupComment on above:Performed By: #### CBC, BMP #### [place] [address] USAErythrocyte distribution width (RBC) [Ratio]15.9 %High 12.0-14.8The [facility] Physician GroupComment on above:Performed By: #### CBC, BMP #### [place] [address] USAHematocrit (Bld) [Volume fraction]38.2 %Low38.8-50.0The [facility] Physician GroupComment on above:Performed By: #### CBC, BMP #### [place] [address] USAHemoglobin (Bld) [Mass/Vol]12.7 g/dLLow13.0-17.0The [facility] Physician GroupComment on above:Performed By: #### CBC, BMP #### [place] [address] USALymphocytes (Bld) [#/Vol]1.4 10*3/uLNormal1.00-4.8The [facility] Physician GroupComment on above:Performed By: #### CBC, BMP #### [place] [address] USALymphocytes/100 WBC (Bld)11.5 %Normal.The [facility] Physician GroupComment on above:Performed By: #### CBC, BMP #### [place] [address] USAMCH (RBC) [Entitic mass]28.5 nfHapstb17.5-35.2The [facility] Physician GroupComment on above:Performed By: #### CBC, BMP #### [place] [address] USAMCV (RBC) [Entitic vol]85.4 sSUyovjt40.5-101The [facility] Physician GroupComment on above:Performed By: #### CBC, BMP #### [place] [address] USAMean Corpuscular HGB Conc33.4 g/lSKufuka52.5-35.6The [facility] Physician GroupComment on above:Performed By: #### CBC, BMP #### [place] [address] USAMonocytes (Bld) [#/Vol]1.5 10*3/uLHigh0.0-0.8The [facility] Physician GroupComment on above:Performed By: #### CBC, BMP #### [place] [address] USAMonocytes/100 WBC (Bld)12.8 %Normal.The [facility] Physician GroupComment on above:Performed By: #### CBC, BMP #### [place] [address] USANeutrophils (Bld) [#/Vol]9.1 10*3/uLHigh1.8-7.7The [facility] Physician GroupComment on above:Performed By: #### CBC, BMP #### [place] [address] USANeutrophils/100 WBC (Bld)75.1 %Normal.The [facility] Physician GroupComment on above:Performed By: #### CBC, BMP #### [place] [address] USANRBC%0.0 /100{WBC}Normal0-0.5The [facility] Comment on above:Performed By: #### CBC, BMP #### [place] [address] USAPlatelet mean volume (Bld) [Entitic vol]9.3 fLNormal 6.6-10.1The [facility] Physician GroupComment on above:Performed By: #### CBC, BMP #### [place] [address] USAPlatelets (Bld) [#/Vol]131 10*3/dKSqe702-381Svl [facility] Physician GroupComment on above:Performed By: #### CBC, BMP #### [place] [address] USARBC (Bld) [#/Vol]4.47 10*6/uLNormal3.90-5.60The [facility] Physician GroupComment on above:Performed By: #### CBC, BMP #### [place] [address] USAWBC (Bld) [#/Vol]12.1 10*3/uLHigh4.1-10.5The [facility] Physician GroupComment on above:Performed By: #### CBC, BMP #### [address] [place] [address] USAECG 12 lead ECGon 53-31-1581HHR 12 lead ECGTRIHEALTH [facility] [place] [address] [place] [address] Electrocardiograph Report Signed Patient: Alex Anderson MR#: [id number] 36 : 1945 Acct:[id number] Age/Sex: 78 / M ADM Date: 01/16/24 Loc: Room: [address] [place] [address] Type: ADM IN Attending Dr: Nas Pruett [...] Signed By Ana Castro MD 0 01/18/24 1102NoNorth [facility] Physician GroupBasic Metabolic Panelon 26-45-2943Fxzpf gap [Moles/Vol]12.3 mmol/LNormal6.0-15.0The [facility] Physician GroupComment on above:Performed By: #### BLAKE CUU #### [facility] [address] [place] [address] USACalcium [Mass/Vol]8.9 mg/dLNormal8.6-10.3The [facility] Physician GroupComment on above:Performed By: #### BLAKE, CUU #### [facility] [address] [place] [address] USAChloride [Moles/Vol]105 mmol/UAkopzz22-712Tmo [facility] Physician GroupComment on above:Performed By: #### BLAKE CUU #### [facility] [address] [place] [address] USACO2 [Moles/Vol]22.2 mmol/HQesbje55.0-31.0The [facility] Physician GroupComment on above:Performed By: #### BLAKE CUU #### [facility] [address] [place] [address] USACreatinine [Mass/Vol]1.70 mg/dLHigh0.70-1.30The [facility] Physician GroupComment on above:Performed By: #### BLAKE CUU #### [place] [address] USACreatinine Clr Calc Jwxqqixx83.35NormalThe [facility] Physician GroupComment on above:Performed By: #### BLAKE CUU #### [place] [address] USAGFR/1.73 sq M.predicted MDRD (S/P/Bld) [Vol rate/Area] 40.249 mL/min/{1.73_m2}NormalThe [facility] Physician GroupComment on above: Performed By: #### BLAKE CUU #### [place] [address] USAGlucose [Mass/Vol]115 mg/nIAwhk40-544Uwu [facility] Physician GroupComment on above:Result Comment: Random Glucose Reference Range is dependent on time and content of last meal. Glucose of more than 200 mg/dL in a nonstressed, ambulatory subject supports the diagnosis of Diabetes Mellitus. ADA recommended reference rangePerformed By: #### BLAKE CUU #### [place] [address] USAPotassium [Moles/Vol]4.5 mmol/LNormal3.5-5.1The [facility] Physician GroupComment on above:Performed By: #### BLAKE CUU #### [place] [address] USASodium [Moles/Vol]135 mmol/IYxh244-077Xlr [facility] Physician GroupComment on above:Performed By: #### JHONNY LOZANO #### [facility] [address] [place] [address] USAUrea nitrogen [Mass/Vol]26 mg/dLHigh7-25The [facility] Physician GroupComment on above:Performed By: #### BLAKE CUU #### [facility] [address] [place] [id number] USACapillary blood glucose measurement by glucometer (mass/volume)Ordered By: Nas Pruett on 29-22-0962Bnuejnw [Mass/Vol]126 mg/dL NormalPromedica Memorial HospitalComment on above:Random Glucose Reference Range is [...] the diagnosis of Diabetes Mellitus. PERFORMED BY: [place] [address] PATHOLOGIST PORTAINER OPERATOR OREN OWEN M.D.Performed By: #### JHONNY LOZANO #### [place] [id number] USACholesterol [Mass/volume] in Serum or PlasmaOrdered By: Nas Pruett on 38-30-0286Pqlsocfvtri [Mass/Vol]74 mg/qSDxq438-387MjbqbofjkPromedica Memorial HospitalComment on above:Chol less than 200 mg/dl low riskChol 201-239 mg/dl borderline riskChol 240 mg/dl and greater high riskResult Comment: Chol less than 200 mg/dl low risk Chol 201-239 mg/dl borderline risk Chol 240 mg/dl and greater high riskPerformed By: #### BLAKE, CUU #### [place] [id number] USACholesterol in LDL Calc [Mass/Vol]Ordered By: Nas Pruett on 71-12-4020Rwxmuslpqsp in LDL [Mass/Vol]28 mg/dL0-100Promedica Memorial HospitalComment on above:LDL ATP III CLASSIFICATIONLDL less than 100 mg/dL OptimalLDL 100-129 mg/dL Near or above mwztlfyYNV120-009 mg/dL Borderline highLDL 160-189 mg/dL HighLDL greater than 189 mg/dL Very highCholesterol in VLDL Calc [Mass/Vol]Ordered By: Nas Pruett on 28-73-1139Nierzvhkwhn in VLDL [Mass/Vol]13 mg/dLPromedica Memorial HospitalDipstick and Microscopicon 99-20-5592Suvwtnbzon (U)CloudyCritically abnormalClearThe [facility] Physician GroupComment on above:Order Comment: Name Collection Type:: Zapien Catheter Performed By: #### BLAKE, CUU #### [facility] [address] [place] [address] USABacteria,Urine2+HighNone SeenThe [facility] Physician Group Comment on above:Order Comment: Name Collection Type:: Zapien CatheterPerformed By: #### BLAKE, CUU #### [facility] [address] [place] [address] USABilirubin,UrineNegativeNormalNegativeThe [facility] Physician GroupComment on above:Order Comment: Name Collection Type:: Zapien CatheterPerformed By: #### BLAKE, CUU #### [facility] [address] [place] [address] USAColor (U)Light-YellowNormalYellowThe [facility] Physician GroupComment on above:Order Comment: Name Collection Type:: Zapien Catheter Performed By: #### ADDMOEUAPLUS, CUU #### [facility] [address] [place] [address] USAGlucose Ql (U)NormalNormalNormalThe [facility] Physician GroupComment on above:Order Comment: Name Collection Type:: Zapien Catheter Performed By: #### HETALUAPLUS, CUU #### [facility] [address] [place] [address] USAHyaline Casts,UrineNoneNormal0-8The [facility] Physician GroupComment on above:Order Comment: Name Collection Type:: Zapien Catheter Performed By: #### ADDONUAPLUS, CUU #### [place] [address] USAKetones Ql (U)NegativeNormalNegativeThe [facility] Physician GroupComment on above:Order Comment: Name Collection Type:: Zapien CatheterPerformed By: #### ADDONUAPLUS, CUU #### [place] [address] USALeukocyte esterase Test strip Ql (U)3+HighNegativeThe [facility] Physician GroupComment on above:Order Comment: Name Collection Type:: Zapien CatheterPerformed By: #### ADDONUAPLUS, CUU #### [place] [address] USAMucus,UrineRareNormalThe [facility] Physician GroupComment on above:Order Comment: Name Collection Type:: Zapien CatheterResult Comment: PERFORMED BY: [place] [address] PATHOLOGIST PORTAINER OPERATOR OREN OWEN M.D.Performed By: #### ADDONUAPLUS, CUU #### [place] [address] USANitrite,UrineNegativeNormalNegativeThe [facility] Physician GroupComment on above:Order Comment: Name Collection Type:: Zapien Catheter Performed By: #### ADDONUAPLUS, CUU #### [place] [address] USAOccult Blood,UrineTraceHighNegativeThe [facility] Physician GroupComment on above:Order Comment: Name Collection Type:: Zapien Catheter Result Comment: PERFORMED BY: [place] [address] PATHOLOGIST PORTAINER OPERATOR OREN OWEN M.D.Performed By: #### ADDONUAPLUS, CUU #### [place] [address] USApH (U)6.0 [pH]Normal5.0-9.0The [facility]ician Group Comment on above:Order Comment: Name Collection Type:: Zapien CatheterPerformed By: #### ADDONUAPLUS, CUU #### [facility] [address] [place] [address] USAProtein,UrineTraceHighNegativeThe [facility] Physician GroupComment on above:Order Comment: Name Collection Type:: Zapien Catheter Performed By: #### ADDONUAPLUS, CUU #### [place] [address] USARBC,Wdrki9-3Cnqkma9-2Jpb [facility] Physician GroupComment on above:Order Comment: Name Collection Type:: Zapien CatheterPerformed By: #### ADDONUAPLUS, CUU #### [place] [address] USASpecificy Mesa,Urine1.101Kkwdgz3.001-1.030The [facility] Physician GroupComment on above:Order Comment: Name Collection Type:: Zapien CatheterPerformed By: #### ADDONUAPLUS, CUU #### [place] [address] USASquamous Epithelial Cell,Ifxyz4-7Koydhc4-9Zjg [facility] Physician GroupComment on above:Order Comment: Name Collection Type:: Zapien CatheterPerformed By: #### ADDONUAPLUS, CUU #### [place] [address] USAUrobilinogen,UrineNormalNormalNormalThe [facility] Physician GroupComment on above:Order Comment: Name Collection Type:: Zapien CatheterPerformed By: #### ADDONUAPLUS, CUU #### [place] [address] USAWBC,Spsxl61-97Mfrr9-8Xoc [facility] Physician GroupComment on above:Order Comment: Name Collection Type:: Zapien CatheterPerformed By: #### ADDONUAPLUS, CUU #### [place] [address] USAECG 12 lead ECGon 71-17-5528AMT 12 lead ECGTRIHEALTH [facility] [place] [address] [place] [address] Electrocardiograph Report Signed Patient: Alex Anderson MR#: [id number] 36 : 1945 Acct:[id number] Age/Sex: 78 / M ADM Date: 01/16/24 Loc: Room: [address] [place] [address] Type: ADM IN Attending Dr: Nas Pruett [...] or before 16-Jan-2024) Inferior injury pattern ACUTE TX / STEMI Abnormal ECG When compared with ECG of 16-Jan-2024 19:53, (Unconfirmed) Serial changes of evolving Septal infarct present Confirmed by ANA CASTRO MD ([id number]) on 01/17/2024 9:52:42 AM Referred By: Electronically Signed By: ANA CASTRO MD Transcribed By: MUS Signed By Ana Castro MD 0 01/17/[address] [place] [address] Physician GroupECH echo transthoracicon 79-25-5777MET echo transthoracicTRIHEALTH MCCULLOUGH-[facility] [facility] [place] [address] [place] [address] Echocardiogram Signed Patient: Alex Anderson MR#: [id number] [birth year] : 1945 Acct:[id number] Age/Sex: 78 / M ADM Date: 01/16/24 Loc: Room: [address] [place] [address] Type: ADM IN Attending Dr: Nas Pruett [...] 1045 Signed By: Ana Castro MD 01/17/24 1150NoNorth [facility] Physician [facility] HospitalGlucose Poct Glucometerson 11-21-6964Bmbfsix [Mass/Vol]115 mg/dLNoNorth Carolina Specialty Hospital Physician [facility]'S HospitalComment on above:Result Comment: Random Glucose Reference Range is dependent on time and content of last meal. Glucose of more than 200 mg/dL in a nonstressed, ambulatory subject supports the diagnosis of Diabetes Mellitus. PERFORMED BY: [place] [address] PATHOLOGIST PORTAINER OPERATOR OREN OWEN M.D.Performed By: #### PTT, PT #### [place] [address] USAGlucose [Mass/Vol]114 mg/dLNoNorth Carolina Specialty Hospital Physician [facility]'S HospitalComment on above:Result Comment: Random Glucose Reference Range is dependent on time and content of last meal. Glucose of more than 200 mg/dL in a nonstressed, ambulatory subject supports the diagnosis of Diabetes Mellitus. PERFORMED BY: [place] [address] PATHOLOGIST PORTAINER OPERATOR OREN OWEN M.D.Performed By: #### BLAKE CUU #### [place] [address] USAGlucose [Mass/Vol]125 mg/dLNoNorth Carolina Specialty Hospital Physician [facility]'S HospitalComment on above:Result Comment: Random Glucose Reference Range is dependent on time and content of last meal. Glucose of more than 200 mg/dL in a nonstressed, ambulatory subject supports the diagnosis of Diabetes Mellitus. PERFORMED BY: [place] [id number] PATHOLOGIST PORTAINER OPERATOR OREN OWEN M.D.Performed By: #### PTT, PT #### [place] [id number] USALipid Panelon 06-88-4902SRD Cholesterol,Jblcicyqzb12 mg/dL Normal0-100[facility] Physician GroupComment on above:Result Comment: LDL ATP III CLASSIFICATION LDL less than 100 mg/dL Optimal LDL 100-129 mg/dL Near or above optimal LDL 130-159 mg/dL Borderline high LDL 160-189 mg/dL High LDL greater than 189 mg/dL Very highPerformed By: #### BLAKE, CUU #### [facility] [address] [place] [id number] USATriglyceride w/Rjozrm84 mg/dLNormal0-149The [facility] Physician GroupComment on above:Result Comment: TRIG ATP III CLASSIFICATION TRIG less than 150 mg/dL Normal TRIG 150-199 mg/dL Borderline high TRIG 200-500 mg/dL High TRIG greater than 500 mg/dL Very high Standard traceable to the Center for Disease Conrtrol and Prevention (CDC) test method.Performed By: #### BLAKE, CUU #### [facility] [address] [place] [address] USAVLDL HTCFMNXBEQZ19 mg/dLNormalThe [facility] Physician [facility]'S HospitalComment on above:Performed By: #### BLAKE, CUU #### [facility] [address] [place], [place] [id number] USAPlatelet adequacy [Presence] in Blood by Light microscopy Ordered By: Nas Pruett on 28-88-4389Tbmmwgkvi LM Ql (Bld)DecreasedNormOhioHealth Berger HospitalPlatelet morphology finding [Identifier] in BloodOrdered By: Nas Pruett on 63-62-6959Tftifvbv morphology finding Nom (Bld)NormalNormal Promedica Memorial HospitalRBC morphologyOrdered By: Nas Pruett on 96-78-3600TXO morphology finding Nom (Bld)N/AFTriHealth Bethesda North Hospital Scan and CBCon 69-72-0104Spqfoeiie (Bld) [#/Vol]0.1 10*3/uLNormal0.0-0.2The [facility] Physician GroupComment on above:Result Comment: PERFORMED BY: [place] [address] PATHOLOGIST PORTAINER OPERATOR OREN OWEN M.D.Performed By: #### BLAKE, CUU #### [place] [address] USABasophils/100 WBC (Bld)0.4 %Normal.The [facility] Physician GroupComment on above:Performed By: #### BLAKE, CUU #### [place] [address] USAEosinophils (Bld) [#/Vol]0.0 10*3/uLNormal0.0-0.45The [facility] Physician GroupComment on above:Performed By: #### BLAKE, CUU #### [place] [address] USAEosinophils/100 WBC (Bld)0.0 %Normal.The [facility] Physician GroupComment on above:Performed By: #### BLAKE, CUU #### [place] [address] USAErythrocyte distribution width (RBC) [Ratio]15.8 %High 12.0-14.8The [facility] Physician GroupComment on above:Performed By: #### BLAKE CUU #### [place] [address] USAHematocrit (Bld) [Volume fraction]38.4 %Low38.8-50.0[facility] Physician GroupComment on above:Performed By: #### BLAKE, CUU #### [place] [address] USAHemoglobin (Bld) [Mass/Vol]12.7 g/dLLow13.0-17.0[facility] Physician GroupComment on above:Performed By: #### BLAKE, CUU #### [place] [address] USALymphocytes (Bld) [#/Vol]1.2 10*3/uLNormal1.00-4.8[facility] Physician GroupComment on above:Performed By: #### JESUSPLUS, CUU #### [place] [address] USALymphocytes/100 WBC (Bld)6.9 %Normal.The [facility] Physician GroupComment on above:Performed By: #### ADDONUAPLUS, CUU #### [address]H (RBC) [Entitic mass]28.4 fqSpxizm09.5-35.2The [facility] Physician GroupComment on above:Performed By: #### ADDONUAPLUS, CUU #### [address]V (RBC) [Entitic vol]86.1 uQBdqrlf19.5-101The [facility] Physician GroupComment on above:Performed By: #### ADDONUAPLUS, CUU #### [place] [address] USAMean Corpuscular HGB Conc33.0 g/nVKbnyiq17.5-35.6The [facility] Physician GroupComment on above:Performed By: #### ADDONUAPLUS, CUU #### [place] [address] USAMonocytes (Bld) [#/Vol]2.8 10*3/uLHigh0.0-0.8[facility] Physician GroupComment on above:Performed By: #### ADDONUAPLUS, CUU #### [place] [address] USAMonocytes/100 WBC (Bld)15.6 %Normal.[facility] Physician GroupComment on above:Performed By: #### ADDONUAPLUS, CUU #### [place] [address] USANeutrophils (Bld) [#/Vol]13.6 10*3/uLHigh1.8-7.7The [facility] Physician GroupComment on above:Performed By: #### ADDONUAPLUS, CUU #### [place] [address] USANeutrophils/100 WBC (Bld)77.1 %Normal.The [facility] Physician GroupComment on above:Performed By: #### BLAKE, CUU #### [place] [address] USANRBC%0.0 /100{WBC}Normal0-0.5[facility] Physician Group Comment on above:Performed By: #### BLAKE, CUU #### [place] [address] USAPlatelet EstimateDecreasedNormalNormHCA Florida Poinc[facility] Hospital Physician GroupComment on above:Performed By: #### BLAKE CUU #### [place] [address] USAPlatelet mean volume (Bld) [Entitic vol]9.0 fLNormal 6.6-10.1[facility] Physician GroupComment on above:Performed By: #### BLAKE, CUU #### [place] [address] USAPlatelet MorphologyNormalNormalNormHCA Florida Poinciana Hospital Physician GroupComment on above:Result Comment: PERFORMED BY: [place] [address] PATHOLOGIST PORTAINER OPERATOR OREN OWEN M.D.Performed By: #### BLAKE, CUU #### [place] [address] USAPlatelets (Bld) [#/Vol]135 10*3/kHZec159-317Rcb [facility] Physician GroupComment on above:Performed By: #### BLAKE, CUU #### [place] [address] USARBC (Bld) [#/Vol]4.46 10*6/uLNormal3.90-5.60[facility] Physician GroupComment on above:Performed By: #### JESUSPLUS, CUU #### [place] [address] USAWBC (Bld) [#/Vol]17.7 10*3/uLHigh4.1-10.5[facility] Physician GroupComment on above:Performed By: #### JHONNY LOZANO #### [place] [address] USASerum or plasma high density lipoprotein (HDL) cholesterol measurementOrdered By: Nas Pruett on 74-81-9929Tkgiwtanqex in HDL [Mass/Vol]33 mg/uKScgluv57-37CojeosvjpPromedica Memorial HospitalComment on above:HDL CHOL ATP- III CLASSIFICATION Cardiovascular RiskHDL > or equal to 60 mg/dL LOWHDL < 40 mg/dL HIGHResult Comment: HDL CHOL ATP-III CLASSIFICATION Cardiovascular Risk HDL > or equal to 60 mg/dL LOW HDL < 40 mg/dL HIGHPerformed By: #### BLAKE CUU #### [place] [address] USASerum or plasma total cholesterol/high density lipoprotein (HDL) cholesterol mass ratOrdered By: Nas Pruett on 01-17-2024 Cholesterol.total/Cholesterol in HDL [Mass ratio]2.2 {ratio}Normal<5.0Prom[facility]ica Memorial HospitalComment on above:Result Comment: PERFORMED BY: [place] [address] PATHOLOGIST PORTAINER OPERATOR OREN OWEN M.D.Performed By: #### BLAKE, CUU #### [place] [id number] USATriglyceride [Mass/volume] in Serum or PlasmaOrdered By: Nas Pruett on 22-70-4357Iexbchbaxwiu [Mass/Vol]67 mg/dL0-149Prom[facility] Memorial HospitalComment on above:TRIG ATP III CLASSIFICATIONTRIG less than 150 mg/dL NormalTRIG 150-199 mg/dL Borderline highTRIG 200-500 mg/dL High TRIG greater than 500 mg/dL Very highStandard traceable to the Center for Disease Co nrtrol and Prevention (CDC) test method.Troponin I High Sensitivityon 01-17-2024 Troponin I High Wxgybdgxzts78420.6 pg/mLOff scale high0.0-20.0The [facility] Physician GroupComment on above:Result Comment: Critical Result I_TnIHS_d:28161.6 Called to and read back by: WU MCDANIEL at: 01/17/2024 06:17:54 by:[id number] PERFORMED BY: [place] [address] PATHOLOGIST PORTAINER OPERATOR OREN OWEN M.D.Performed By: #### JHONNY LOZANO #### [place] [address] USATroponin I.cardiac [Mass/volume] in Serum or Plasma by Detection limit <= 0.01 ng/Ordered By: Nas Pruett on 17-92-9531Cfrofwsv I.cardiac DL <= 0.01 ng/mL [Mass/Vol]67501.6 pg/mLHigh0.0-20.0Prom[facility] Memorial HospitalComment on above:Critical Result I_TnIHS_d:87215.6 Called to and read back by: WU MCDANIEL at: 01/17/2024 06:17:54 by:[id number] Cultureon 41-72-3443Nyqtpabk identified Cx Nom (U)ORGANISM: Enterococcus faecalis (O:ENTFAC) [place] Count >100,000 Aerobic RITESH Charge (PCMIC38) SUSCEPTIBILITY [...] RESISTANT TO ALL B-LACTAM DRUGS. PERFORMED BY: [place] [address] PATHOLOGIST PORTAINER OPERATOR OREN OWEN M.D.[facility] Physician GroupComment on above:Performed By: #### PTT, PT #### [place] [address] USAUrine culture routineOrdered By: Justina Lara on 09-96-7178Npjwwhwq identified Cx Nom (U)Enterococcus faecalisAbnoMercy Health Perrysburg HospitalXR chest 1V portableon 54-92-9975VK chest 1V portable [facility] [place] [address] XRay Report Signed Patient: Alex Anderson MR#: [id number] [birth year] : 1945 Acct:[id number] Age/Sex: 78 / M ADM Date: 01/16/24 Loc: Room: [address] [place] [address] Type: ADM IN Attending Dr: Nas Pruett [...] Corky Max M.D.01/17/2024 11:34 AM Dictation Location: [place] [address] Transcribed By: [facility] 01/17/24 1134 Dictated By: Corky Max II, MD 01/17/24 1132 Signed By: 01/17/24 1134[facility] Physician GroupECG 12 lead ECGon 44-26-1533UDB 12 lead ECGTRIHEALTH [facility] Main [place] [id number] Electrocardiograph Report Signed Patient: Alex Anderson MR#: [id number] 36 : 1945 Acct:[id number] Age/Sex: 78 / M ADM Date: 01/16/24 Loc: Room: [address] [place] [address] Type: ADM IN Attending Dr: Nas Pruett [...] Signed By Ana Castro MD 0 01/17/[address] [place] [address] Physician GroupEC 12 lead ECGMelissa [place] [id number] Electrocardiograph Report Signed Patient: Alex Anderson MR#: [id number] [birth year] : 1945 Acct:[id number] Age/Sex: 78 / M ADM Date: 01/16/24 Loc: Room: [address] [place] [address] Type: ADM IN Attending Dr: Nas Pruett [...] Signed By Ana Castro MD 0 01/17/24 0057[facility] Physician [facility]S HospitalGlucose Poct Glucometerson 80-02-4217Pegpooj7Bag2: Cleaned MeterMinneapolis VA Health Care SystemComment on above:Result Comment: PERFORMED BY: [place] [address] PATHOLOGIST PORTAINER OPERATOR OREN OWEN M.D.Performed By: #### BLAKE, CUU #### [place] [id number] USAGlucose [Mass/Vol]118 mg/dLNoNorth Carolina Specialty Hospital Physician GroupComment on above:Result Comment: Random Glucose Reference Range is dependent on time and content of last meal. Glucose of more than 200 mg/dL in a nonstressed, ambulatory subject supports the diagnosis of Diabetes Mellitus.Performed By: #### JESUSPLUS, CUU #### [place] [id number] USAGlucose [Mass/Vol]119 mg/dLShorePoint Health Punta Gorda Physician GroupComment on above:Result Comment: Random Glucose Reference Range is dependent on time and content of last meal. Glucose of more than 200 mg/dL in a nonstressed, ambulatory subject supports the diagnosis of Diabetes Mellitus. PERFORMED BY: [place] [address] PATHOLOGIST PORTAINER OPERATOR OREN OWEN M.D.Performed By: #### JESUSPLUS, CUU #### [place] [id number] USANo Panel InformationOrdered By: Nas Pruett on 01-16-2024 Bedside Glucose CommentGlu2: cleaned [facility] Troponin I High Sensitivityon 02-05-3235Vcgmztov I High Rbnbmdrvros70982.2 pg/mL Off scale high0.0-20.0[facility] Physician GroupComment on above:Result Comment: Critical Result I_TnIHS_d:95717.2 Called to and read back by: BRIDGETTE LUIS at: 01/16/2024 20:40:51 by:[id number] PERFORMED BY: [phone] PATHOLOGIST PORTAINER OPERATOR OREN OWEN M.D.Performed By: #### HS TROP #### [place] [address] USATroponin I High Yinnltkhqgi027434.4 pg/mLOff scale high 0.0-20.0[facility] Physician GroupComment on above:Result Comment: Critical Result I_TnIHS_d:936630.4 Called to and read back by: BROOKE CANDELARIA at: 01/16/2024 18:52:06 by:[email or web address] PERFORMED BY: [place] [address] PATHOLOGIST PORTAINER OPERATOR OREN OWEN M.D.Performed By: #### BLAKE, CUU #### [place] [id number] USATroponin I High Utmliumwoxp923105.2 pg/mLOff scale high 0.0-20.0[facility] Physician GroupComment on above:Result Comment: Critical Result I_TnIHS_d:164554.2 Called to and read back by: BROOKE CANDELARIA at: 01/16/2024 16:28:58 by:[id number] PERFORMED BY: [phone] PATHOLOGIST PORTAINER OPERATOR OREN OWEN M.D.Performed By: #### BLAKE, CUU #### [place] [id number] USATroponin I High Wwbzzzbhxgi71263.4 pg/mLOff scale high 0.0-20.0[facility] Physician GroupComment on above:Result Comment: Critical Result I_TnIHS_d:23855.4 Called to and read back by: BROOKE CANDELARIA at: 01/16/2024 14:15:37 by:[id number] PERFORMED BY: [place] [address] PATHOLOGIST PORTAINER OPERATOR OREN OWEN M.D.Performed By: #### BLAKE, CUU #### [facility] [address] [place] [address] USANo Panel InformationOrdered By: Willy Lambert on 98-60-3854Wsxzarbjnsret Pathology TestSee commentPromedica Memorial HospitalComment on above:See report. Scanned copy available in EMR.Pathology Request for Lab Corpon 64-94-5936Omoewqilo Request for Lab CorpNormalThe [facility] Physician GroupComment on above:Order Comment: PATHOLOGY GI SPECIMEN Result Comment: See report. Scanned copy available in EMR. PERFORMED BY: [place] [address] PATHOLOGIST PORTAINER OPERATOR OREN OWEN M.D.Performed By: #### PATH TO [facility] #### [facility] [address] [place] [address] USACholesterol [Mass/volume] in Serum or PlasmaOrdered By: Teo Al on 66-10-7072Qlsbmqggtge [Mass/Vol]91 mg/uJMjx149-302XhcxftrknPromedica Memorial HospitalComment on above:Chol less than 200 mg/dl low riskChol 201-239 mg/dl borderline riskChol 240 mg/dl and greater high riskResult Comment: Chol less than 200 mg/dl low risk Chol 201-239 mg/dl borderline risk Chol 240 mg/dl and greater high riskPerformed By: #### HETALUAJONATHAN, CUU #### [facility] [address] [place] [address] USACholesterol in LDL Calc [Mass/Vol]Ordered By: Teo Al on 53-85-8506Fqcamghpbuq in LDL [Mass/Vol]37 mg/dL0-100Prom[facility] Memorial HospitalComment on above:LDL ATP III CLASSIFICATIONLDL less than 100 mg/dL OptimalLDL 100-129 mg/dL Near or above anxvdnzWTU938-155 mg/dL Borderline highLDL 160-189 mg/dL HighLDL greater than 189 mg/dL Very high Cholesterol in VLDL Calc [Mass/Vol]Ordered By: Teo Al on 12-26-2023 Cholesterol in VLDL [Mass/Vol]18 mg/dLPromedica Memorial HospitalLipid Panelon 79-97-5000NVH Cholesterol,Fspkstvufz74 mg/dLNormal0-100[facility] Physician [facility]'S HospitalComment on above:Result Comment: LDL ATP III CLASSIFICATION LDL less than 100 mg/dL Optimal LDL 100-129 mg/dL Near or above optimal LDL 130-159 mg/dL Borderline high LDL 160-189 mg/dL High LDL greater than 189 mg/dL Very highPerformed By: #### BLAKE, CUU #### [facility] [address] [place] [address] USATriglyceride w/Cgrgtd34 mg/dLNormal0-149[facility] Physician [facility]'S HospitalComment on above:Result Comment: TRIG ATP III CLASSIFICATION TRIG less than 150 mg/dL Normal TRIG 150-199 mg/dL Borderline high TRIG 200-500 mg/dL High TRIG greater than 500 mg/dL Very high Standard traceable to the Center for Disease Conrtrol and Prevention (CDC) test method.Performed By: #### BLAKE, CUU #### [facility] [address] [place] [address] USAVLDL MMUSQJQMMHK35 mg/dLNormalThe [facility] Physician [facility]'S HospitalComment on above:Performed By: #### JESUSPLUS, CUU #### [facility] [address] [place] [address] USASerum or plasma high density lipoprotein (HDL) cholesterol measurementOrdered By: Teo Al on 86-03-5440Bmqvkqxrnys in HDL [Mass/Vol]35 mg/hBZyrpze81-26WwnzrflsrPromedica Memorial HospitalComment on above: HDL CHOL ATP-III CLASSIFICATION Cardiovascular RiskHDL > or equal to 60 mg/dL LOWHDL < 40 mg/dL HIGHResult Comment: HDL CHOL ATP-III CLASSIFICATION Cardiovascular Risk HDL > or equal to 60 mg/dL LOW HDL < 40 mg/dL HIGHPerformed By: #### BLAKE CUU #### [facility] [address] [place] [address] USASerum or plasma total cholesterol/high density lipoprotein (HDL) cholesterol mass ratOrdered By: Teo Al on 12-26-2023 Cholesterol.total/Cholesterol in HDL [Mass ratio]2.6 {ratio}Normal<5.0Promedica Memorial HospitalComment on above:Result Comment: PERFORMED BY: [facility] [address] [place] [address] PATHOLOGIST PORTAINER OPERATOR OREN OWEN M.D.Performed By: #### BLAKE, CUU #### [facility] [address] [place] [address] USATriglyceride [Mass/volume] in Serum or PlasmaOrdered By: Teo Al on 80-54-3683Frurezfneskk [Mass/Vol]94 mg/dL0-149Promedica Memorial HospitalComment on above:TRIG ATP III CLASSIFICATIONTRIG less than 150 mg/dL NormalTRIG 150-199 mg/dL Borderline highTRIG 200-500 mg/dL High TRIG greater than 500 mg/dL Very highStandard traceable to the Center for Disease Conrtrol and Prevention (CDC) test method.Erythrocyte distribution width Auto (RBC) [Ratio]on 65-79-5429Deohgyowqjg distribution width (RBC) [Ratio]15.4 %High11.0-15.0Promedica Memorial HospitalHematocrit Auto (Bld) [Volume fraction]on 79-31-1935Gnkpfaineo (Bld) [Volume fraction]41.3 %Low42.0-54.0 [facility] Memorial HospitalHemoglobin [Mass/volume] in Bloodon 10-16-2023 Hemoglobin (Bld) [Mass/Vol]13.3 g/dLLow14.0-18.0Prom[facility] Memorial HospitalLaboratory - Chemistry and Chemistry - challengeon 12-83-4027Tcirmvzpc [Mass/Vol]2.1 mg/dL1.8-2.4FTriHealth Bethesda North HospitalUrate [Mass/Vol]5.9 mg/dL3.5-7.2FTriHealth Bethesda North HospitalLeukocytes [#/volume] corrected for nucleated erythrocytes in Blood by Automated counon 95-91-6682VZK corrected for nucl RBC Auto (Bld) [#/Vol]9.3 10 3/uL4.0-11.0[facility] MCH Auto (RBC) [Entitic mass]on 03-25-7987XQX (RBC) [Entitic mass]27.8 pg 25.9-34.0Promedica Memorial HospitalMCHC Auto (RBC) [Mass/Vol]on 05-91-8075CKMD (RBC) [Mass/Vol]32.2 g/dL29.9-35.2FTriHealth Bethesda North HospitalMCV Auto (RBC) [Entitic vol]on 84-80-6985BWV (RBC) [Entitic vol]86.2 fL 80.0-94.0Prom[facility]ica Memorial HospitalNo Panel Informationon 10-16-2023 Phosphorus Level2.7 mg/dL2.6-4.7FTriHealth Bethesda North HospitalPlatelet mean volume Auto (Bld) [Entitic vol]on 82-05-1756Hpgkvozw mean volume (Bld) [Entitic vol]10.1 fL9.5-13.5FTriHealth Bethesda North HospitalPlatelets Auto (Bld) [#/Vol] on 66-11-0439Alaadjhfb (Bld) [#/Vol]197 10 3/cR521-126CgorbocdkPromedica Memorial HospitalRBC Auto (Bld) [#/Vol]on 96-83-6837RBG (Bld) [#/Vol]4.79 10 6/uL4.70-6.10 [facility] HospitalLaboratory - Chemistry and Chemistry - challengeon 38-69-1916Lqsfekxdy Ql (U)NegativePromedica Memorial Hospital Glucose (U) [Mass/Vol]NegativePromedica Memorial HospitalKetones Ql (U) Kettering HealthpH (U)7.0 [pH][facility] Memorial Hospitalpecific gravity (U) [Rel density]1.010Promedica Memorial HospitalUrobilinogen (U) [Mass/Vol]0.2 mg/dLPromedica Memorial Hospital Laboratory - Specimen informationon 65-35-8769Rfdwl (U)LtYellowPromedica Memorial HospitalLaboratory - Urinalysison 06-54-0927Nenykewtm esterase Test strip Ql (U)LargePromedica Memorial HospitalNitrite Ql (U)Positive [facility] Memorial HospitalProtein Ql (U)30Prom[facility]ica Memorial HospitalCreatinine (Bld) [Mass/Vol]Ordered By: Margarito Valentine on 08-18-2023 Creatinine [Mass/Vol]2.4 mg/dL0.6-1.3FTriHealth Bethesda North HospitalComment on above:ER/ESD physician is notified/shown all ISTAT results.Critical values may be confirmed by laboratorytesting ifdeemed necessary by ER attending doctor.No Panel InformationOrdered By: Margarito Valentine on 32-28-2423Cpdlxsk Estimated GFR (eGFR)26.776Promedica Memorial HospitalUS.doppler Lower extremity vein - righton 63-48-1453[place] [address] Ultrasound Report Signed Patient: ALEX ANDERSON MR#: [id number] : 1945 Acct:[id number] Age/Sex: 77 / M ADM Date: 07/31/23 Loc: RAD Attending Dr: Shahriar Lewis M.D. Ordering Physician: Shahriar Lewis Date of Service: 07/31/23 Procedure(s): US venous doppler LE RT Accession Number(s): [id number] cc: Shahriar Lewis; STANLEY EMERSON [place] [id number] Patient Name: ALEX ANDERSON MRN: [id number] date: 1945 Sex: M Assigned Patient Location: [facility] Current Patient Location: RAD Accession/Order Number: [id number] Exam Date: 07/31/2023 08:40 Report Date: 07/31/2023 [...] Signed By: 07/31/23 1050 DD/ 1047 TD/TT: Title Vehicle Service Attendant:TBHRadiology, Radiologist, MD - 07/31/2023 [place] [address] Ultrasound Report Signed Patient: ALEX ANDERSON MR#: [id number] : 1945 Acct:[id number] Age/Sex: 77 / M ADM Date: 07/31/23 Loc: RAD Attending Dr: Shahriar Lewis M.D. Ordering Physician: Shahriar Lewis Date of Service: 07/31/23 Procedure(s): US venous doppler LE RT Accession Number(s): [id number] cc: Shahriar Lewis; STANLEY EMERSON [place] [id number] Patient Name: ALEX ANDERSON MRN: [id number] date: 1945 Sex: M Assigned Patient Location: [facility] Current Patient Location: [facility] Accession/Order Number: [id number] Exam Date: 07/31/2023 08:40 Report Date: 07/31/2023 [...] Signed By: 07/31/23 1050 DD/ 1047 TD/TT: Title Vehicle Service Attendant: MARSHAL MadisonRadiology Study observation (narrative)MARSHAL Mena.doppler Lower extremity vein - rightOrdered By: Radiologist Radiology on 35-81-9595[facility] Work Phone: alanine aminotransferase [Enzymatic activity/volume] in Serum or PlasmaOrdered By: Celia Griffin on 47-67-6641SCR [Catalytic activity/Vol]17 U/L7-52Prom[facility]ica Memorial HospitalAlbumin [Mass/volume] in Serum or Plasma by Bromocresol green (BCG) dye binding methoOrdered By: Celia Griffin on 12-36-0366Vnsydxz BCG dye [Mass/Vol]4.2 g/dL3.5-5.7FTriHealth Bethesda North HospitalAlkaline phosphatase [Enzymatic activity/volume] in Serum or PlasmaOrdered By: Celia Griffin on 11-32-9623SMG [Catalytic activity/Vol]72 U/L 34-104Promedica Memorial HospitalAspartate aminotransferase [Enzymatic activity/volume] in Serum or PlasmaOrdered By: Celia Griffin on 83-88-7637ENV [Catalytic activity/Vol]16 U/Z61-18AjruxpgntPromedica Memorial HospitalAutomated erythrocytes count in urine sediment (number/area)Ordered By: Celia Griffin on 78-43-1662BKG Auto (Urine sed) [#/Area]3-4 [HPF]0-4FTriHealth Bethesda North HospitalAutomated leukocytes count in urine sediment (number/area)Ordered By: Celia Griffin on 71-68-5713JHU Auto (Urine sed) [#/Area]50-100 [HPF]0-4FTriHealth Bethesda North HospitalBilirubin Test strip Ql (U)Ordered By: Celia Griffin on 58-52-3069Pzebqobhb Ql (U)NegativeNegativePromedica Memorial Hospital Bilirubin.total [Mass/volume] in Serum or PlasmaOrdered By: Celia Griffin on 08-82-1169Ebbglntla [Mass/Vol]0.5 mg/dL0.3-1.0[facility] Calcium [Mass/volume] in Serum or PlasmaOrdered By: Celia Griffin on 04-08-2023 Calcium [Mass/Vol]9.3 mg/dL8.6-10.3FTriHealth Bethesda North HospitalCarbon dioxide, total [Moles/volume] in Serum or PlasmaOrdered By: Celia Griffin on 30-61-8003HX1 [Moles/Vol]31.6 mmol/L21.0-31.0[facility] Chloride [Moles/volume] in Serum or PlasmaOrdered By: Celia Griffin on 04-08-2023 Chloride [Moles/Vol]107 mmol/J44-517ZsbqsfzjaPromedica Memorial HospitalCholesterol [Mass/volume] in Serum or PlasmaOrdered By: Teo Al on 04-08-2023 Cholesterol [Mass/Vol]107 mg/cC528-276WdhgcojxgPromedica Memorial HospitalComment on above:Chol less than 200 mg/dl low riskChol 201-239 mg/dl borderline riskChol 240 mg/dl and greater high riskCholesterol in LDL Calc [Mass/Vol]Ordered By: Teo Al on 65-23-2783Hqwfvlydqiy in LDL [Mass/Vol]47 mg/dL0-100Prom[facility] HospitalComment on above:LDL ATP III CLASSIFICATIONLDL less than 100 mg/dL OptimalLDL 100-129 mg/dL Near or above twmptyxDCP591-700 mg/dL Borderline highLDL 160-189 mg/dL HighLDL greater than 189 mg/dL Very high Cholesterol in VLDL Calc [Mass/Vol]Ordered By: Teo Al on 04-08-2023 Cholesterol in VLDL [Mass/Vol]26 mg/dLPromedica Memorial HospitalColor Auto (U)Ordered By: Celia Griffin on 34-67-4946Zkrqf (U)YellowYellowPromedica Memorial HospitalCreatinine [Mass/volume] in Serum or PlasmaOrdered By: Celia Griffin 53-65-5552Yyqqahmymt [Mass/Vol]1.41 mg/dL0.70-1.30[facility] HospitalCreatinine [Mass/volume] in UrineOrdered By: Celia Griffin 79-04-4824Nxpugpgquu (U) [Mass/Vol]90.0 mg/dL14.0-26.0[facility] HospitalErythrocyte distribution width Auto (RBC) [Ratio]Ordered By: Celia Griffin on 99-43-8894Jfnqordewof distribution width (RBC) [Ratio]15.7 %12.0-14.8 [facility] HospitalFerritin [Mass/volume] in Serum or Plasma Ordered By: Celia Griffin 40-39-4476Znneqmcx [Mass/Vol]34.1 ng/mL23.9-336.2 [facility] HospitalFolate [Mass/volume] in Serum or PlasmaOrdered By: Celia Griffin 28-59-8400Ofsmnp [Mass/Vol]34.0 ng/mL>5.9[facility] HospitalComment on above:Folate reference range: >5.9 ng/mlThe WHO technical consultation on folate and vitamin t06oxibxehzinwn has determined that folate concentrations lessthan 4 ng/ml are considered deficient.Globulin Calc (S) [Mass/Vol]Ordered By: Celia Griffin 77-88-7994Zbxynlln (S) [Mass/Vol]2.8 g/dLPromedica Memorial HospitalGlucose [Mass/volume] in Serum or Plasma Ordered By: Celia Griffin 00-08-4644Dtsfxid [Mass/Vol]107 mg/lO20-639IrfyvtdbmPromedica Memorial HospitalComment on above:ADA recommended reference rangeRandom Glucose Reference Range is dependent on time and content of last meal. Glucose of more than 200 mg/dL in a nonstressed, ambulatory subject supports the diagnosisof Diabetes Mellitus.Hematocrit Auto (Bld) [Volume fraction]Ordered By: Celia Griffin 47-63-2625Stjuncqobc (Bld) [Volume fraction]43.8 %38.8-50.0 [facility] HospitalHemoglobin [Mass/volume] in BloodOrdered By: Celia Griffin 13-04-2098Ymxdscziqk (Bld) [Mass/Vol]14.3 g/dL13.0-17.0[facility] HospitalIron [Mass/volume] in Serum or PlasmaOrdered By: Celia Griffin on 86-55-3894Cvmq [Mass/Vol]53 ug/pF03-089ZbzffbndzPromedica Memorial HospitalIron binding capacity [Mass/volume] in Serum or PlasmaOrdered By: Celia Griffin on 45-83-3430Ufpg binding capacity [Mass/Vol]370 ug/dQ222-467BoehpcjjlPromedica Memorial HospitalIron saturation [Mass Fraction] in Serum or PlasmaOrdered By: Celia Griffin on 93-75-8796Qnjr saturation [Mass fraction]14.3 %20-50 [facility] HospitalKetones Auto test strip (U) [Mass/Vol]Ordered By: Celia Griffin on 41-35-3981Tmvnoxb (U) [Mass/Vol]NegativeNegativePromedica Memorial HospitalLaboratory - UrinalysisOrdered By: Celia Griffin on 52-30-6411Oplqqqd casts LM Ql (Urine sed)9-19 [LPF]0-8[facility] HospitalLeukocytes [#/volume] corrected for nucleated erythrocytes in Blood by Automated counOrdered By: Celia Griffin on 00-96-2516XMY corrected for nucl RBC Auto (Bld) [#/Vol]8.4 10*3/uL4.1-10.5FGlenbeigh Hospital Auto (RBC) [Entitic mass]Ordered By: Celia Griffin on 00-20-4984SOW (RBC) [Entitic mass]27.3 pg27.5-35.2FMarietta Osteopathic ClinicHC Auto (RBC) [Mass/Vol] Ordered By: Celia Griffin on 37-47-5766HNKJ (RBC) [Mass/Vol]32.6 g/dL32.5-35.6 [facility] HospitalMCV Auto (RBC) [Entitic vol]Ordered By: Celia Griffin on 80-05-3591RFL (RBC) [Entitic vol]83.8 fL83.5-101[facility] HospitalMagnesium [Mass/volume] in Serum or PlasmaOrdered By: Celia Griffin on 23-44-1031Xpphuuhix [Mass/Vol]2.2 mg/dL1.9-2.7FTriHealth Bethesda North HospitalNitrite Test strip Ql (U)Ordered By: Celia Griffin on 74-26-6809Ecezdsa Ql (U)PositiveNegativePromedica Memorial HospitalNo Panel InformationOrdered By: Celia Griffin on 98-59-0503Zserfontr GFR (CKD-EPI)50.692 mL/MinPromedica Memorial HospitalPharmacy Creatinine Clearance (ChemN/AFTriHealth Bethesda North HospitalParathyrin.intact [Mass/volume] in Serum or PlasmaOrdered By: Celia Griffin on 09-00-1922Wlqihtclkq.intact [Mass/Vol]76.6 pg/iC80-12GlymocslcPromedica Memorial HospitalPhosphate [Mass/volume] in Serum or PlasmaOrdered By: Celia Griffin 77-45-2794Tsboqhabr [Mass/Vol]2.8 mg/dL2.5-4.5FTriHealth Bethesda North HospitalPlatelet mean volume Auto (Bld) [Entitic vol]Ordered By: Celia Griffin on 51-24-4149Vngxrjbc mean volume (Bld) [Entitic vol]8.6 fL6.6-10.1 [facility] HospitalPlatelets Auto (Bld) [#/Vol]Ordered By: Celia Griffin on 37-53-3717Nbjxkbfxw (Bld) [#/Vol]201 10*3/xD395-311OnezmjjmyPromedica Memorial HospitalPotassium [Moles/volume] in Serum or PlasmaOrdered By: Celia Griffin 53-80-8493Tsposesaz [Moles/Vol]4.5 mmol/L3.5-5.1FTriHealth Bethesda North HospitalProtein Auto test strip (U) [Mass/Vol]Ordered By: Celia Griffin on 55-30-4002Qufedxn (U) [Mass/Vol]Trace mg/dLNegativePromedica Memorial HospitalProtein [Mass/volume] in Serum or PlasmaOrdered By: Celia Griffin on 17-68-6954Qggwwzx [Mass/Vol]7.0 g/dL6.4-8.9[facility] Protein [Mass/volume] in UrineOrdered By: Celia Griffin on 30-90-3850Vxtllni (U) [Mass/Vol]30 mg/dL0-9[facility] HospitalRBC Auto (Bld) [#/Vol] Ordered By: Celia Griffin on 92-43-6252CKS (Bld) [#/Vol]5.22 10*6/uL3.90-5.60 [facility] Hospitalerum or plasma albumin/globulin mass ratio Ordered By: Celia Griffin on 24-31-6994Kmiqqvx/Globulin [Mass ratio]1.5 {ratio} [facility] Hospitalerum or plasma anion gap determinationOrdered By: Celia Griffin on 45-46-2868Ykndz gap [Moles/Vol]8.9 mmol/L6.0-15.0[facility] Hospitalerum or plasma high density lipoprotein (HDL) cholesterol measurementOrdered By: Teo Al on 57-05-3186Fvmcyrdpeph in HDL [Mass/Vol]34 mg/uK49-32MrunqrnxlPromedica Memorial HospitalComment on above:HDL CHOL ATP-III CLASSIFICATION Cardiovascular RiskHDL > or equal to 60 mg/dL LOWHDL < 40 mg/dL HIGHSerum or plasma total cholesterol/high density lipoprotein (HDL) cholesterol mass ratOrdered By: Teo Al on 04-08-2023 Cholesterol.total/Cholesterol in HDL [Mass ratio]3.1 {ratio}<5.0[facility] Hospitalodium [Moles/volume] in Serum or PlasmaOrdered By: Celia Griffin on 06-09-1788Usbxny [Moles/Vol]143 mmol/U852-919TxsupwbqsGrand Lake Joint Township District Memorial Hospitalpecific gravity Auto test strip (U) [Rel density]Ordered By: Celia Griffin on 44-89-9800Befchyke gravity (U) [Rel density]1.0171.001-1.030[facility] Hospitalquamous epithelial cells detection in urine sediment by light microscopyOrdered By: Celia Griffin on 09-70-6225Gwdcpiyfgd cells.squamous LM Ql (Urine sed)0-1 [HPF]0-2FTriHealth Bethesda North HospitalTransferrin [Mass/volume] in Serum or PlasmaOrdered By: Celia Griffin on 04-08-2023 Transferrin [Mass/Vol]264 mg/wY346-658EhmukzwljPromedica Memorial Hospital Triglyceride [Mass/volume] in Serum or PlasmaOrdered By: Teo Al on 26-76-8268Ntrokowtrgei [Mass/Vol]131 mg/dL0-149[facility] Comment on above:TRIG ATP III CLASSIFICATIONTRIG less than 150 mg/dL NormalTRIG 150-199 mg/dL Borderline highTRIG 200-500 mg/dL High TRIG greater than 500 mg/dL Very highStandard traceable to the Center for Disease Conrtrol and Prevention (CDC) test method.Urate [Mass/volume] in Serum or PlasmaOrdered By: Celia Griffin on 25-82-3612Mycmm [Mass/Vol]6.0 mg/dL4.4-7.6FTriHealth [facility] Hospital Urea nitrogen [Mass/volume] in Serum or PlasmaOrdered By: Celia Griffin on 76-37-8717Otud nitrogen [Mass/Vol]27 mg/dL7-25[facility] Urine bacteria detection by automated methodOrdered By: Celia Griffin on 26-70-4323Yjdgybyp Auto Ql (U)4+None SeenPromedica Memorial HospitalUrine clarity by refractometry automatedOrdered By: Celia Griffin on 95-71-3193Jlcibtf Refractometry automated (U)CloudyCleHolzer Medical Center – JacksonUrine glucose measurement by automated test strip (mass/volume)Ordered By: Celia Griffin on 08-05-1322Vyfepxj Auto test strip (U) [Mass/Vol]Normal mg/dLNormal [facility] HospitalUrine hemoglobin detection by automated test stripOrdered By: Celia Griffin on 81-89-0998Xeheoqpmkl Auto test strip Ql (U)1+ NegativePromedica Memorial HospitalUrine leukocyte esterase detection by automated test stripOrdered By: Celia Griffin on 10-68-3337Uvjlxeiai esterase Auto test strip Ql (U)4+NegativePromedica Memorial HospitalUrine protein/creatinine ratioOrdered By: Celia Griffin on 54-26-5376Qahsjuq/Creatinine (U) [Ratio]333 mg/g{Cre}0-200Prom[facility] Memorial HospitalUrobilinogen Auto test strip (U) [Mass/Vol]Ordered By: Celia Griffin on 28-28-5021Axoicidqfckr (U) [Mass/Vol]Normal mg/dLNormalPromedica Memorial HospitalVitamin B12 ser/plasOrdered By: Celia Griffin on 50-50-5397Auqlsgmtg (Vitamin B12) [Mass/Vol] 301 pg/pA723-749XbqzcluxfPromedica Memorial HospitalVitamin D+Metabolites [Mass/volume] in Serum or PlasmaOrdered By: Celia Griffin on 50-63-5756Tecppad D+Metabolites [Mass/Vol]37.5 ng/vR83-415QlyiziahjPromedica Memorial HospitalComment on above:VITAMIN D STATUS 25(OH)VITAMIN D RANGE (ng/mL) Deficient <20 Insufficient 20 to <24Illrbyyefk20 to 100Reference: Sixto MF,Federico MATA, Palomo LESLIE, et al. Evaluation,treatment, and prevention of vitamin D deficiency; an Endocrine Society clinical practice guideline. JCEM. 2010; 96 (7):1911-30.pH Auto test strip (U)Ordered By: Celia Griffin on 10-46-2335hA (U) 7.0 [pH]5.0-9.0[facility] HospitalOffice Visit (Cardiology)on 13-38-6500Asgaii-up visitDiagnoses/Problems Assessed Hypertension (401.9) (I10) Dyslipidemia (272.4) [...] Lipid Panel; Status:Active - Retrospective Authorization; Requested for:[id number]; Overweight with body mass index (BMI) of 27 to 27.9 in adult Healthy Weight Tips; Status:Complete - Retrospective Authorization; Done: [id number] Some eating tips that can help you lose weight.; Status:Complete - Retrospective Authorization; Done: [id number] SocHx: Current smoker Start: Aspirin 81 MG Oral Tablet Delayed Release; TAKE 1 TABLET DAILY Tobacco Use Screening; Status:Complete; Done: [id number] You need to stop smoking. Though it is not easy, more than half of all adult smokers have quit. We encourage you to write down all the reasons you should quit smoking and set a quit date for yourself. Ask us how we can help. You may also call 2-263-LKKCAlternative Green TechnologiesNOW for free resources and assistance.; Status:Complete - Retrospective Authorization; Done: [id number] Tobacco Use Screening; Status:Complete; Done: [id number] Patient Instructions Please bring all medicines, vitamins, [...] negative for complaint. Vitals Vital Signs Recorded: 99Imz4880 09:57AM Heart Rate72, L Radial Hawxmokv117, LUE, Sitting Nqorpmwja83, LUE, Sitting Height6 ft 2 in Fmyazx565 lb BMI Jmusrqlhsz17.35 kg/m2 BSA Calculat (more content not included)...NormalUH TouchworksTobacco Screening. on 35-45-3192Bntd risk assessmenta) No falls within the last yearMulti[facility] [employer] 250 DO Work Phone: Tobacco use status CPHSa) Yes-[facility] | [employer] 250 DO Work Phone: Tobacco Screening.YesMP-[place] [address] DO Work Phone: CULTURE URINEon 74-31-1675XYIOEJI URINEIsolate 1 Pseudomonas aeruginosa >100,000 cfu/mL of ORGANISM 1 Pseudomonas aeruginosa ANTIBIOTIC M.I.C RX STATUS Piperacillin/Tazobactam <=4 S F Ceftazidime <=1 S F Imipenem 2 S F Amikacin <=2 S F Gentamicin 2 S F Tobramycin <=1 S F Ciprofloxacin <=0.25 S F Levofloxacin <=0.12 S FNormalShelby Memorial HospitalComment on above:Performed By: #### URTPCR #### [facility] [address] [place] [address] Dr. Karen GraceULI, URINARYon ,8 DihydroxyadenineCleveland Clinic Children's Hospital for RehabilitationComment on above:Performed By: #### UA #### [facility] [address] [place] [address] Dr. Karen PierceAmmonium Acid UrateNSelect Medical Cleveland Clinic Rehabilitation Hospital, Edwin ShawComment on above: Performed By: #### UA #### [facility] [address] [place] [address] Dr. Karen Skaggsirubin Ql (U)[facility] for RehabilitationComselect specialty hospital on above: Performed By: #### UA #### [facility] [address] [place] [address] Dr. Karen Bergeron Oxalate DihydrateNSelect Medical Cleveland Clinic Rehabilitation Hospital, Edwin ShawComment on above: Performed By: #### UA #### [facility] [address] [address] [address] Karen BergeronHPO4 (Brushite)[facility] for RehabilitationComment on above: Performed By: #### UA #### [facility] [address] [place] [address] Dr. Karen Graceium BilirubinateNSelect Medical Cleveland Clinic Rehabilitation Hospital, Edwin ShawComselect specialty hospital on above: Performed By: #### UA #### [facility] [address] [place] [address] Dr. Karen Graceium CarbonateCleveland Clinic Children's Hospital for RehabilitationComment on above: Performed By: #### UA #### [facility] [address] [address] [address] Karen Rivera Oxalate Rkqplbadpkf611 %[facility] Comment on above:Performed By: #### UA #### [facility] [address] [address] [address] Karen Graceium PalmitateCleveland Clinic Children's Hospital for RehabilitationComment on above: Performed By: #### UA #### [facility] [address] [address] [address] Karen Graceium PhosphateNoMartin Memorial HospitalComment on above: Performed By: #### UA #### [facility] [address] [address] [address] Karen Rivera StearateNormalShelby Memorial HospitalComselect specialty hospital on above: Performed By: #### UA #### [facility] [address] [address] [address] Karen PierceCarbonate ApatiteCleveland Clinic Children's Hospital for RehabilitationComment on above: Performed By: #### UA #### [facility] [address] [address] [address] Karen PierceCellular MaterialCleveland Clinic Children's Hospital for RehabilitationComselect specialty hospital on above: Performed By: #### UA #### [facility] [address] [address] [address] Karen PierceCholesterolCleveland Clinic Children's Hospital for RehabilitationComselect specialty hospital on above:Performed By: #### UA #### [facility] [address] [address] [address] Karen Salomon (U)[facility] HospitalComselect specialty hospital on above: Performed By: #### UA #### [facility] [address] [address] [address] Karen PierceCommentCleveland Clinic Children's Hospital for RehabilitationComselect specialty hospital on above:Performed By: #### UA #### [facility] [address] [address] [address] Karen Ragland:[facility] on above:Result Comment: Physician questions regarding Calculi Analysis contact [facility] at: [phone].Performed By: #### UA #### [facility] [address] [place] [address] Dr. Karen EastonpositionCommentProMedica Toledo Hospital on above: Result Comment: Percentage (Represents the % composition)Performed By: #### UA #### [facility] [address] [place] [address] Dr. Karen PierceCystineSumma Healthment on above:Performed By: #### UA #### [facility] [address] [place] [address] Dr. Karen Chinclmer:CommentProMedica Toledo Hospital on above: Result Comment: This test was developed and its performance characteristics determined by [employer]. It has not been cleared or approved by the Food and Drug Administration.Performed By: #### UA #### [facility] [address] [place] [address] Dr. Karen PierceDried BloodProMedica Toledo Hospital on above:Performed By: #### UA #### [facility] [address] [place] [address] Dr. Karen PierceDrug or MetaboliteProMedica Toledo Hospital on above: Performed By: #### UA #### [facility] [address] [place] [address] Dr. Karen PierceHydroxyapatiteProMedica Toledo Hospital on above: Performed By: #### UA #### [facility] [address] [place] [address] Dr. Karen PierceMg NH4 PO4 (Struvite)[facility] for RehabilitationComment on above: Performed By: #### UA #### [facility] [address] [place] [address] Dr. Karen PierceMgHPO4 (Newberyite)NormalShelby Memorial HospitalComment on above: Performed By: #### UA #### [facility] [address] [place] [address] Dr. Karen PierceOther component(s)NormalShelby Memorial HospitalComment on above: Performed By: #### UA #### [facility] [address] [address] [address] Karen Acosta.[facility] on above:Performed By: #### UA #### [facility] [address] [address] [address] Karen JaimesProMedica Toledo Hospital on above:Result Comment: Photograph will follow under a separate coverPerformed By: #### UA #### [facility] [address] [address] [address] Karen Rubin note:CommentProMedica Toledo Hospital on above: Result Comment: Calculi report will follow via computer, mail or radiation physicist delivery.Performed By: #### UA #### [facility] [address] [address] [address] Karen MalloryEgmfnOhji0f3XyavxuC[address] on above:Result Comment: Multiple pieces received. Dimensions of the largest piece reported.Performed By: #### UA #### [facility] [address] [address] [address] Karen Harrisum Acid UrateNBlanchard Valley Health System on above: Performed By: #### UA #### [facility] [address] [address] [address] Karen IngramomdanielaProMedica Toledo Hospital on above:Result Comment: Urinary BladderPerformed By: #### UA #### [facility] [address] [address] [address] Karen AshleyneProMedica Toledo Hospital on above:Performed By: #### UA #### [facility] [address] [address] [address] Karen Carnes AcidProMedica Toledo Hospital on above:Performed By: #### UA #### [facility] [address] [address] [address] Karen PierceUric Acid DihydrateNBlanchard Valley Health System on above: Performed By: #### UA #### [facility] [address] [address] [address] Karen Sandoval158 mgCleveland Clinic Children's Hospital for RehabilitationComment on above:Performed By: #### UA #### [facility] [address] [address] [address] Karen RamireznthineCleveland Clinic Children's Hospital for RehabilitationComselect specialty hospital on above:Performed By: #### UA #### [facility] [address] [address] [address] Karen Ryder URINE PROFILEon 57-91-0000Fveyrsiev Ql (U)NegativeNormal NEGATIVEShelby Memorial HospitalComment on above:Performed By: #### BONITA ERUR #### [facility] [address] [place] [address] Dr. Karen PierceClarity (U)CLEARNormalCLEARShelby Memorial HospitalComment on above: Performed By: #### JOVAN MESAR #### [facility] [address] [place] [address] Dr. Karen Parkslor (U)YELLOWNormalYELLOWShelby Memorial HospitalComment on above: Performed By: #### JOVAN MESAR #### [facility] [address] [place] [address] Dr. Karen Daigle micrscopic examination will be performed if indicated. NormalShelby Memorial HospitalComment on above:Performed By: #### BONITA ERUR #### [facility] [address] [place] [address] Dr. Karen PierceGlucose Ql (U)NegativeNormalNEGATIVEShelby Memorial HospitalComment on above:Performed By: #### BONITA ERUR #### [facility] [address] [place] [address] Dr. Karen PierceHemoglobin Ql (U)LARGEAbnormalNEGATIVEMetrohealth Main Campus Medical Center on above:Performed By: #### BONITA ERUR #### [facility] [address] [address] [address] Karen PierceKetones Ql (U)NegativeNormalNEGATIVEThe [facility] Health SystemComment on above:Performed By: #### BONITA ERUR #### [facility] [address] [address] [address] Karen PierceLEUKOCYTESLARGEAbnormalNEGATIVEThe [facility] SystemComment on above:Performed By: #### BONITA ERUR #### [facility] [address] [address] [address] Karen Zamoraite Ql (U)PositiveAbnormalNEGATIVEThe [facility] on above:Performed By: #### BONITA ERUR #### [facility] [address] [address] [address] Karen Macias (U)5.5 [pH]Normal5-9The [facility] SystemComment on above: Performed By: #### BONITA ERUR #### [facility] [address] [place] [address] Dr. Karen PierceProtein (U) [Mass/Vol]100 mg/dLAbnormalNEGATIVE/ TRACEThe [facility] SystemComment on above:Performed By: #### JOVAN MESAR #### [facility] [address] [place] [address] Dr. Karen Garcia GRAVITY1.521Uckyym0.005-<=1.025The [facility] SystemComment on above:Performed By: #### JOVAN MESAR #### [facility] [address] [place] [address] Dr. Karen Moulton MICRO INDINDICATEDNormalThe [facility] Health SystemComment on above: Performed By: #### BONITA ERUR #### [facility] [address] [place] [address] Dr. Karen Hernandez Qn (U)1.0 {Tonio'U}/dLNormal0.2 - 1.0The [facility] SystemComment on above:Performed By: #### BONITA ERUR #### [facility] [address] [place] [address] Dr. Karen Vázquez MICROSCOPIC ONLYon [id number]W SEEN [facility] HospitalComselect specialty hospital on above:Performed By: #### BONITA ERUR #### [facility] [address] [place] [address] Dr. Karen Hunt identified Cx Nom (U)INDICATEDCleveland Clinic Children's Hospital for RehabilitationComselect specialty hospital on above:Performed By: #### BONITA, ERUR #### [facility] [address] [place] [address] Dr. Karen Patterson SEENNormalNONE SEENShelby Memorial HospitalComselect specialty hospital on above:Performed By: #### BONITA ERUR #### [facility] [address] [place] [address] Dr. Karen Jade LM Nom (Urine sed)NONE SEENNormalNONE SEENOhioHealth Pickerington Methodist Hospital on above:Performed By: #### JOVAN MESAR #### [facility] [address] [place] [address] Dr. Jones ChangEpithelial cells LM Ql (Urine sed)NONE SEENNormalNONE SEEN /RARE [facility] HospitalComselect specialty hospital on above:Performed By: #### JOVAN MESAR #### [facility] [address] [place] [address] Dr. Karen Chan SEENrmnmNONE SEENShelby Memorial HospitalComselect specialty hospital on above:Performed By: #### BONITA ERUR #### [facility] [address] [place] [address] Dr. Karen Salinas (U) [#/Vol]/uLAbnormal0-2The [facility] on above:Performed By: #### JOVAN MESAR #### [facility] [address] [place] [address] Dr. Karen ChristiansonRgfagMBY73-10GukgrkqcDPVC SEENShelby Memorial HospitalComselect specialty hospital on above: Performed By: #### JOVAN MESAR #### [facility] [address] [place] [address] Dr. Karen Jung INTACTon 64-52-3408MDP, Xinael82 pg/bNQohxoz36-32Nyn [facility] SystemComment on above:Performed By: #### PTHINT #### [facility] [address] [place] [address] Dr. Karen PierceFERRITINon 23-62-3845Ceaojwvd [Mass/Vol]49.0 ng/mLNormal 26.0-388.0The [facility] SystemComment on above:Performed By: #### URTPCR #### [facility] [address] [place] [address] Dr. Karen Simms AND TIBCon 09-04-2022% ODKWTOUBPW10.3 %NormalThe [facility] SystemComment on above:Performed By: #### URTPCR #### [facility] [address] [place] [address] Dr. Karen Simms [Mass/Vol]33.0 ug/dLCritically low65.0-175.0The [facility] SystemComment on above:Performed By: #### URTPCR #### [facility] [address] [place] [address] Dr. Karen PierceTIBQuynh QRGSKZ492.0 ug/vWVcupuo129.0-450.0The [facility] Comment on above:Performed By: #### URTPCR #### [facility] [address] [place] [address] Dr. Karen Lanier RANDOMon 56-67-4943Runbxjved Ql (U)NegativeNormalNEGATIVEThe [facility] SystemComment on above:Performed By: #### UA #### [facility] [address] [place] [address] Dr. Karen Wangarity (U)CLEARNormalCLEARThe [facility] SystemComment on above: Performed By: #### UA #### [facility] [address] [place] [address] Dr. Karen Salomon (U)LT. YELLOWNormalYELLOWThe [facility] SystemComment on above:Performed By: #### UA #### [facility] [address] [address] [address] Karen PierceGlucose Ql (U)NegativeNormalNEGATIVEShelby Memorial HospitalComment on above:Performed By: #### UA #### [facility] [address] [address] [address] Karen PierceHemoglobin Ql (U)MODERATEAbnormalNEGATIVEShelby Memorial Hospital Comment on above:Performed By: #### UA #### [facility] [address] [address] [address] Karen PierceKetones Ql (U)NegativeNormalNEGATIVEShelby Memorial HospitalComment on above:Performed By: #### UA #### [facility] [address] [place] [address] Dr. Karen PierceLEUKOCYTESLARGEAbnormnmNEGATIVEShelby Memorial HospitalComment on above:Performed By: #### UA #### [facility] [address] [place] [address] Dr. Karen PierceNitrite Ql (U)PositiveAbnormalNEGSelect Medical Specialty Hospital [facility] Comment on above:Performed By: #### UA #### [facility] [address] [address] [address] Karen PiercepH (U)6.5 [pH]Normal5-9The [facility] SystemComment on above: Performed By: #### UA #### [facility] [address] [place] [address] Dr. Karen PierceSPEC GRAVITY1.144Tzudom2.005-<=1.025The [facility] SystemComment on above:Performed By: #### UA #### [facility] [address] [place] [address] Dr. Karen Lanier UOSJBAA04 mg/dlAbnormalNEGATIVE/ TRACEShelby Memorial Hospital Comment on above:Performed By: #### UA #### [facility] [address] [place] [address] Dr. Karen PierceUrobilinogen Qn (U)0.2 {Tonio'U}/dLNormal0.2 - 1.0The [facility] SystemComment on above:Performed By: #### UA #### [facility] [address] [place] [address] Dr. Karen Vázquez T PROTEIN CREAT RATIOon 21-35-0025Jrnratr (U) [Mass/Vol] 65.2 mg/dLCritically high<=12.0The [facility] SystemComment on above:Performed By: #### URTPCR #### [facility] [address] [place] [address] Dr. Karen Moulton PROT CREAT RAT0.76NoMartin Memorial HospitalComment on above: Performed By: #### URTPCR #### [facility] [address] [place] [address] Dr. Karen Vázquez CREAT85.95 mg/xUSfzyeg37.00-300.00[facility] Comment on above:Performed By: #### URTPCR #### [facility] [address] [place] [address] Dr. Karen Ruffin B12 AND FOLATEon 00-31-1189Pwrklhjxn (Vitamin B12) [Mass/Vol] 279.0 pg/fYQbbjxz874.0-986.0[facility] HospitalComselect specialty hospital on above:Performed By: #### URTPCR #### [facility] [address] [place] [address] Dr. Karen PierceFOLATE17.80 ng/mLNormal8.60-58.90[facility] on above:Performed By: #### URTPCR #### [facility] [address] [place] [address] Dr. Karen PierceVITAMIN D 25 OHon 58-36-4596IVI D 25-OH29.9 ng/mLNormalShelby Memorial HospitalComment on above:Performed By: #### URTPCR #### [facility] [address] [place] [address] Dr. Karen Ruffin D RANGESSEE BELOWCleveland Clinic Children's Hospital for RehabilitationComment on above: Result Comment: <20 ng/mL Vit D deficient 20 - <30 ng/mL Vit D insufficient 30 - 100 ng/mL Vit D sufficient >100 ng/mL Potential ToxicityPerformed By: #### URTPCR #### [facility] [address] [place] [address] Dr. Karen Waters AUTO DIFFon 46-64-1163JBUE #0.1 103/ulNormal0.0-0.1[facility] HospitalComment on above:Performed By: #### CBC #### [facility] [address] [place] [address] Dr. Karen PierceBasophils/100 WBC (Bld)0.7 %Normal0.2-2.0[facility] Comment on above:Performed By: #### CBC #### [facility] [address] [place] [address] Dr. Karen Valente #0.2 103/ulNormal0.0-0.7The [facility] SystemComment on above: Performed By: #### CBC #### [facility] [address] [place] [address] Dr. Karen Reyesosinophils/100 WBC (Bld)2.6 %Normal0.9-7.0[facility] Comment on above:Performed By: #### CBC #### [facility] [address] [place] [address] Dr. Karen Reyesrythrocyte distribution width (RBC) [Ratio]13.8 %Torcuq63.0-15.0 [facility] Memorial HospitalComment on above:Performed By: #### CBC #### [facility] [address] [place] [address] Dr. Karen PierceHematocrit (Bld) [Volume fraction]38.9 %Critically low42.0-54.0 [facility] HospitalComment on above:Performed By: #### CBC #### [facility] [address] [place] [address] Dr. Karen PierceHemoglobin (Bld) [Mass/Vol]12.3 g/dLCritically low14.0-18.0The [facility] SystemComment on above:Performed By: #### CBC #### [facility] [address] [place] [address] Dr. Karen Ayala #0.01 10e3/ulNormal0.00-0.03The [facility] SystemComment on above:Performed By: #### CBC #### [facility] [address] [place] [address] Dr. Karen Ayala %0.1 %Normal0.0-0.5The [facility] SystemComment on above: Performed By: #### CBC #### [facility] [address] [place] [address] Dr. Karen Torres #1.9 103/ulNormal1.2-3.8The [facility] SystemComment on above:Performed By: #### CBC #### [facility] [address] [place] [address] Dr. Karen Brandthocytes/100 WBC (Bld)27.0 %Pipvdu96.5-60.0The [facility] SystemComment on above:Performed By: #### CBC #### [facility] [address] [place] [address] Dr. Karen GarzaUAL DIFF REQNONormalThe [facility] SystemComment on above: Performed By: #### CBC #### [facility] [address] [place] [address] Dr. Karen Whitt (RBC) [Entitic mass]27.8 lfCnjpcm50.9-34.0The [facility] SystemComment on above:Performed By: #### CBC #### [facility] [address] [place] [address] Dr. Karen Michael (RBC) [Mass/Vol]31.6 g/zNDvlkox54.9-35.2The [facility] SystemComment on above:Performed By: #### CBC #### [facility] [address] [place] [address] Dr. Karen Michael (RBC) [Entitic vol]87.8 tHIaamrh37.0-94.0The [facility] SystemComment on above:Performed By: #### CBC #### [facility] [address] [place] [address] Dr. Karen Monteiro #0.6 103/ulNormal0.3-0.8The [facility] SystemComment on above:Performed By: #### CBC #### [facility] [address] [place] [address] Dr. Karen Elizabethocytes/100 WBC (Bld)8.8 %Normal1.7-12.0The [facility] Comment on above:Performed By: #### CBC #### [facility] [address] [place] [address] Dr. Karen Cronin #4.4 103/ulNormal1.4-6.5The [facility] SystemComment on above:Performed By: #### CBC #### [facility] [address] [place] [address] Dr. Karen Bakerutrophils/100 WBC (Bld)60.8 %Qqvcxt82.0-75.0The [facility] SystemComment on above:Performed By: #### CBC #### [facility] [address] [place] [address] Dr. Karen Amandalet mean volume (Bld) [Entitic vol]9.9 fLNormal9.5-13.5The [facility] SystemComment on above:Performed By: #### CBC #### [facility] [address] [place] [address] Dr. Karen PiercePLT181 103/ebWqixfd026-255Wjt [facility] SystemComment on above: Performed By: #### CBC #### [facility] [address] [place] [address] Dr. Karen PierceRBC4.43 106/ulCritically low4.70-6.10The [facility] SystemComment on above:Performed By: #### CBC #### [facility] [address] [place] [address] Dr. Karen PierceWBC7.2 103/ulNormal4.0-11.0The [facility] SystemComment on above: Performed By: #### CBC #### [facility] [address] [place] [address] Dr. Karen PierceMAGNESIUMon 02-42-0622Pcevhblmt [Mass/Vol]2.2 mg/dLNormal1.8-2.4 The [facility] SystemComment on above:Performed By: #### UA #### [facility] [address] [place] [address] Dr. Karen PiercePHOSPHORUSon 79-15-3347Uwfqzpbmb [Mass/Vol]2.9 mg/dLNormal2.6-4.7 The [facility] SystemComment on above:Performed By: #### UA #### [facility] [address] [place] [address] Dr. Karen PiercePROF 14(COMP METB)on 09-46-9397Puzangv [Mass/Vol]3.5 g/dLNormal 3.4-5.0The [facility] SystemComment on above:Performed By: #### PTHINT #### [facility] [address] [place] [address] Dr. Karen PierceAlbumin/Globulin [Mass ratio]1.0 {ratio}NormalThe [facility] SystemComment on above:Performed By: #### PTHINT #### [facility] [address] [place] [address] Dr. Karen Murillo [Catalytic activity/Vol]86 U/NOftmrf54-980Hfv [facility] Hospitalment on above:Performed By: #### PTHINT #### [facility] [address] [place] [address] Dr. Karen Matthew [Catalytic activity/Vol]17 U/HLojdsg44-39Ujl [facility] Hospitalment on above:Performed By: #### PTHINT #### [facility] [address] [place] [address] Dr. Karen Landon gap [Moles/Vol]13.0 mmol/LNormalThe [facility] on above:Performed By: #### PTHINT #### [facility] [address] [place] [address] Dr. Karen Ch [Catalytic activity/Vol]14 U/LCritically uvu09-85Fpf [facility] HospitalComment on above:Performed By: #### PTHINT #### [facility] [address] [address] [address] Karen PierceBilirubin [Mass/Vol]0.3 mg/dLNormal0.2-1.0[facility] Comment on above:Performed By: #### PTHINT #### [facility] [address] [place] [address] Dr. Karen PierceCO2 [Moles/Vol]27.6 mmol/BHzuega94.0-32.0The [facility] Comment on above:Performed By: #### PTHINT #### [facility] [address] [place] [address] Dr. Karen PierceCreatinine [Mass/Vol]1.48 mg/dLCritically high0.70-1.30[facility] HospitalComment on above:Performed By: #### PTHINT #### [facility] [address] [place] [address] Dr. Karen ReyesGFR-AF PDQZVREZ44 mL/min/1.77f7Sfkqzswqgy low>=60The [facility] SystemComment on above:Performed By: #### PTHINT #### [facility] [address] [place] [address] Dr. Karen Bello-NON AF JYLBRNBK04 mL/min/1.92v0Lucuwocidv low>=60The [facility] SystemComment on above:Performed By: #### PTHINT #### [facility] [address] [place] [address] Dr. Karen PierceGlobulin (S) [Mass/Vol]3.6 g/dLNormalThe [facility] SystemComment on above:Performed By: #### PTHINT #### [facility] [address] [place] [address] Dr. Karen PierceGlucose [Mass/Vol]105 mg/wCFtuleo33-222LewShelby Memorial Hospital Comment on above:Performed By: #### PTHINT #### [facility] [address] [place] [address] Dr. Karen PierceProtein [Mass/Vol]7.1 g/dLNormal6.4-8.2[facility] Comment on above:Performed By: #### PTHINT #### [facility] [address] [place] [address] Dr. Karen PierceSodium [Moles/Vol]142 mmol/EAerpxo475-229IizShelby Memorial Hospital Comment on above:Performed By: #### PTHINT #### [facility] [address] [place] [address] Dr. Karen PierceUrea nitrogen/Creatinine [Mass ratio]16.2 mg/mgNormalThe [facility] SystemComment on above:Performed By: #### PTHINT #### [facility] [address] [place] [address] Dr. Karen Leos CHEM 8 (BAS METB)on 33-60-3178Nrspi gap [Moles/Vol]11.1 mmol/LNormalShelby Memorial HospitalComment on above:Performed By: #### UA #### [facility] [address] [place] [address] Dr. Karen PierceCalcium [Mass/Vol]8.7 mg/dLNormal8.5-10.1[facility] Comment on above:Performed By: #### UA #### [facility] [address] [place] [address] Dr. Karen PiercePerformed By: #### PTHINT #### [facility] [address] [place] [address] Dr. Karen PierceChloride [Moles/Vol]106 mmol/PHhadvu98-538ViiShelby Memorial Hospital Comment on above:Performed By: #### UA #### [facility] [address] [place] [address] Dr. Karen PiercePerformed By: #### PTHINT #### [facility] [address] [place] [address] Dr. Karen PierceCO2 [Moles/Vol]28.5 mmol/LRwcuvy07.0-32.0[facility] Comment on above:Performed By: #### UA #### [facility] [address] [place] [address] Dr. Yilan ChangCreatinine [Mass/Vol]1.44 mg/dLCritically high0.70-1.30The [facility] SystemComment on above:Performed By: #### UA #### [facility] [address] [address] [address] Karen ReyesGFR-AF VTUBPEMY80 mL/min/1.34r2Rtwsrzvozd low>=60The [facility] SystemComment on above:Performed By: #### UA #### [facility] [address] [address] [address] Karen ReyesGFR-NON AF CKFNEXLH81 mL/min/1.86a8Rgyeahcydh low>=60The [facility] SystemComment on above:Performed By: #### UA #### [facility] [address] [place] [address] Dr. Karen PierceGlucose [Mass/Vol]104 mg/iXEgjrat85-834Iyl [facility] Comment on above:Performed By: #### UA #### [facility] [address] [address] [address] Karen PiercePotassium [Moles/Vol]4.6 mmol/LNormal3.5-5.1The [facility] Comment on above:Performed By: #### UA #### [facility] [address] [place] [address] Dr. Karen PiercePerformed By: #### PTHINT #### [facility] [address] [address] [address] Karen PierceSodium [Moles/Vol]141 mmol/MHycocf361-100Xpd [facility] Comment on above:Performed By: #### UA #### [facility] [address] [address] [address] Karen PierceUrea nitrogen [Mass/Vol]24.0 mg/dLCritically high7.0-18.0The [facility] SystemComment on above:Performed By: #### UA #### [facility] [address] [place] [address] Dr. Karen PiercePerformed By: #### PTHINT #### [facility] [address] [place] [address] Dr. Karen PierceUrea nitrogen/Creatinine [Mass ratio]16.7 mg/mgNoMartin Memorial HospitalComment on above:Performed By: #### UA #### [facility] [address] [place] [address] Dr. Karen PiercePROTIMEon 62-65-9463EVO Coag (PPP) [Relative time]1.01 {INR} NormalThe [facility] SystemComment on above:Performed By: #### PTT, PT #### [facility] [address] [place] [address] Dr. Karen PierceINIsabel GUIDELINESSEE BELOWCleveland Clinic Children's Hospital for RehabilitationComment on above:Result Comment: DESIRED INR: 2.0 - 3.0 CONDITIONS NOT LISTED BELOW 2.5 - 3.5 FOR PROSTHETIC HEART VALVE REPLACEMENT 2.5 - 3.5 RECURRENT THROMBOSIS Performed By: #### PTT, PT #### [facility] [address] [place] [address] Dr. Karen PiercePT Coag (PPP) [Time]10.7 sNormal9.0-11.6The [facility] Comment on above:Performed By: #### PTT, PT #### [facility] [address] [place] [address] Dr. Karen PiercePTTon 64-35-4630iVKF Coag (Bld) [Time]28.2 nDsqtqk55.3-36.2[facility] HospitalComment on above:Performed By: #### PTT, PT #### [facility] [address] [place] [address] Dr. Karen PierceURIC ACID SERUMon 29-04-2306Pgdvb [Mass/Vol]4.8 mg/dLNormal 3.5-7.2The [facility] SystemComselect specialty hospital on above:Performed By: #### PTHINT #### [facility] [address] [place] [address] Dr. Karen PierceCreatinine (Bld) [Mass/Vol]Ordered By: Margarito Valentine on 04-04-6908Rzrrsmqajk [Mass/Vol]1.5 mg/dL0.6-1.3FTriHealth [facility] Comment on above:ER/ESD physician is notified/shown all ISTAT results.Critical values may be confirmed by laboratorytesting ifdeemed necessary by ER attending doctor.Creatinine (Bld) [Mass/Vol]Ordered By: Heather Omalley on 07-24-2022 Creatinine [Mass/Vol]1.6 mg/dL0.6-1.3FTriHealth Bethesda North HospitalComment on above:ER/ESD physician is notified/shown all ISTAT results.Critical values may be confirmed by laboratorytesting ifdeemed necessary by ER attending doctor.No Panel InformationOrdered By: Heather Omalley on 80-88-4637AQG Estimated GFR Wevipdwd22JfibgmsmgPromedica Memorial HospitalComment on above:GFR estimated reference range: According to KDOQI guidelines, <60 ml/min/1.73m2 is sufficient todiagnose a patient with chronic kidney disease.POC Estimated GFR Non- Qbox57TyoqkmvfrPromedica Memorial HospitalBlood activated clotting time by coagulation assayOrdered By: Margarito Valentine on 84-08-5786SDE Coag (Bld) 215 v53-061GklrljxgzPromedica Memorial HospitalComment on above:Reference Range: 90-139 (Non-heparinized)Basophils Auto (Bld) [#/Vol]Ordered By: Margarito Valentine on 85-77-0040Duiolobvz (Bld) [#/Vol]0.1 10*3/uL0.0-0.2FTriHealth Bethesda North HospitalBasophils/100 WBC Auto (Bld)Ordered By: Margarito Valentine on 91-40-5120Jxbbpovvj/100 WBC (Bld)0.9 %.[facility] HospitalCreatinine and Glomerular filtration rate.predicted panel (S/P/Bld)Ordered By: Margarito Valentine on 20-77-8595Kvgqlccrzw [Mass/Vol]1.24 mg/dL0.64-1.27 [facility] HospitalEosinophils Auto (Bld) [#/Vol]Ordered By: Margarito Valentine on 11-25-6119Zklfhzangkx (Bld) [#/Vol]0.2 10*3/uL0.0-0.45 [facility] CenterEosinophils/100 WBC Auto (Bld)Ordered By: Margarito Valentine on 30-99-7931Sgxunhrasvw/100 WBC (Bld)2.5 %.[facility] HospitalErythrocyte distribution width Auto (RBC) [Ratio]Ordered By: Margarito Valentine on 81-50-1107Nznpofvnxtd distribution width (RBC) [Ratio] 18.0 %12.0-14.8[facility] HospitalEstimated glomerular filtration rate (GFR) non- AmericanOrdered By: Margarito Valentine on 06-21-2022 GFR/1.73 sq M.predicted among non-blacks MDRD (S/P/Bld) [Vol rate/Area]56 mL/Min [facility] HospitalHematocrit Auto (Bld) [Volume fraction]Ordered By: Margarito Valentine on 70-20-4554Hxzecrkvfw (Bld) [Volume fraction]37.7 % 38.8-50.0[facility] HospitalHemoglobin [Mass/volume] in Blood Ordered By: Margarito Valentine on 51-71-0142Kbwpoybaxj (Bld) [Mass/Vol]12.3 g/dL 13.0-17.0[facility] HospitalLeukocytes [#/volume] corrected for nucleated erythrocytes in Blood by Automated counOrdered By: Margarito Valentine on 36-73-3920TAW corrected for nucl RBC Auto (Bld) [#/Vol]7.1 10*3/uL4.1-10.5 [facility] HospitalLymphocytes Auto (Bld) [#/Vol]Ordered By: Margarito Valentine on 49-25-7903Bfzxhxipsge (Bld) [#/Vol]1.3 10*3/uL1.00-4.8 [facility] HospitalLymphocytes/100 WBC Auto (Bld)Ordered By: Margarito Valentine on 15-09-7778Nmuildnnmly/100 WBC (Bld)18.7 %.[facility] Auto (RBC) [Entitic mass]Ordered By: Margarito Valentine on 79-83-5748LDY (RBC) [Entitic mass]28.2 pg27.5-35.2[facility] CenterMCHC Auto (RBC) [Mass/Vol]Ordered By: Margarito Valentine on 35-88-4220DDXY (RBC) [Mass/Vol]32.6 g/dL32.5-35.6FTriHealth Bethesda North HospitalMCV Auto (RBC) [Entitic vol]Ordered By: Margarito Valentine on 06-21-2022 MCV (RBC) [Entitic vol]86.5 fL83.5-101Prom[facility] Memorial HospitalMonocytes Auto (Bld) [#/Vol]Ordered By: Margarito Valentine on 32-65-1198Bxuyjmxsw (Bld) [#/Vol]0.7 10*3/uL0.0-0.8[facility] HospitalMonocytes/100 WBC Auto (Bld)Ordered By: Margarito Valentine on 46-17-4179Tbmfyixci/100 WBC (Bld)10.3 %. [facility] HospitalNeutrophils Auto (Bld) [#/Vol]Ordered By: Margarito Valentine on 54-89-7245Ybxlqrccbrk (Bld) [#/Vol]4.8 10*3/uL1.8-7.7 [facility] HospitalNeutrophils/100 WBC Auto (Bld)Ordered By: Margarito Valentine on 57-29-1675Yxqbozuukvz/100 WBC (Bld)67.6 %.[facility] HospitalNo Panel InformationOrdered By: Margarito Valentine on 88-15-0231Xsygbpapb GFR ()> 60 mL/MinPromedica Memorial HospitalComment on above:GFR estimated reference range: According to KDOQI guidelines, <60 ml/min/1.73m2 is sufficient todiagnose a patient with chronic kidney disease.Pharmacy Creatinine Clearance (ChemN/AFTriHealth Bethesda North HospitalNucleated erythrocytes [Presence] in Blood by Automated countOrdered By: Margarito Valentine on 13-25-3961Xsvpprrti RBC Auto Ql (Bld)0.1 /100{WBC}0-0.5 [facility] HospitalPlatelet mean volume Auto (Bld) [Entitic vol] Ordered By: Margarito Valentine on 06-16-5816Tlrnmebm mean volume (Bld) [Entitic vol]8.2 fL6.6-10.1FTriHealth Bethesda North HospitalPlatelets Auto (Bld) [#/Vol] Ordered By: Margarito Valentine on 90-82-0261Qxrqacjkq (Bld) [#/Vol]149 10*3/uL 150-450Prom[facility] Memorial HospitalRBC Auto (Bld) [#/Vol]Ordered By: Margarito Valentine on 99-16-7475CTM (Bld) [#/Vol]4.36 10*6/uL3.90-5.60[facility] Hospitalerum or plasma anion gap determinationOrdered By: Margarito Valentine on 96-59-0510Twoxt gap [Moles/Vol]10.8 mmol/L6.0-15.0 [facility] Hospitalerum or plasma calcium measurement (mass/volume)Ordered By: Margarito Valentine on 56-57-5544Brozpgu [Mass/Vol]8.8 mg/dL8.2-10.2FSelect Medical Specialty Hospital - Youngstownerum or plasma chloride measurement (moles/volume)Ordered By: Margarito Valentine on 48-36-9717Wqcvvhyh [Moles/Vol]107 mmol/X77-600ZwsdwmrroGrand Lake Joint Township District Memorial Hospitalerum or plasma glucose measurement (mass/volume)Ordered By: Margarito Valentine on 06-21-2022 Glucose [Mass/Vol]103 mg/mG61-389BmygqpfgpPromedica Memorial HospitalComment on above:ADA recommended reference rangeRandom Glucose Reference Range is dependent on time and content of last meal. Glucose of more than 200 mg/dL in a nonstressed, ambulatory subject supports the diagnosisof Diabetes Mellitus.Serum or plasma potassium measurement (moles/volume)Ordered By: Margarito Valentine on 86-92-9604Aomkkngcv [Moles/Vol]4.2 mmol/L3.5-5.1FSelect Medical Specialty Hospital - Youngstownerum or plasma sodium measurement (moles/volume)Ordered By: Margarito Valentine on 64-89-3965Jijmpe [Moles/Vol]138 mmol/J134-599KosvlajbxGrand Lake Joint Township District Memorial Hospitalerum or plasma total carbon dioxide measurement (moles/volume) Ordered By: Margarito Valentine on 36-87-6225HY7 [Moles/Vol]24.4 mmol/L22.0-30.0 [facility] Memorial Hospitalerum or plasma urea nitrogen measurement (mass/volume)Ordered By: Margarito Valentine on 44-28-2466Zust nitrogen [Mass/Vol]18 mg/dL9-[facility] HospitalWBC Auto (Bld) [#/Vol] Ordered By: Margarito Valentine on 82-33-8187BXW (Bld) [#/Vol]7.1 10*3/uL4.1-10.5 [facility] HospitalOffice Visit (Cardiology)on 01-39-6860Xmdcvh-up visitDiagnoses/Problems Assessed Dyslipidemia (272.4) (E78.5) Hypertension (401.9) [...] Complaint ALEX ANDERSON is being seen for [facility] poc/ekg. 76-year-old white male who I saw [...] Signs Recorded: 03Jun2022 03:38PM Heart Rate71, Apical Wlgsklrt615, LUE, Sitting Qhzwwsxhu82, LUE, Sitting Height6 ft 2 in Outqiv128 lb BMI Eaplxhptnw79.45 kg/m2 BSA Calculated2.2 Tobacco Useb) No PHQ-2 [...] regular (more content not included)...NormalUH TouchworksTobacco Screening.on 54-63-2657Awuoy depression screening assessmentWomen & [facility] [employer] 250 DO Work Phone: Fall risk assessmenta) No falls within the last year [facility] [employer] 250 DO Work Phone: Tobacco use status CPHSb) [facility] QED | [employer] 250 DO Work Phone: Basophils Auto (Bld) [#/Vol]Ordered By: Bernabe Cr on 77-65-6954Pbylerlhy (Bld) [#/Vol]0.1 10*3/uL0.0-0.2FTriHealth Bethesda North HospitalBasophils/100 WBC Auto (Bld)Ordered By: Bernabe Cr on 22-08-9886Hwherogrw/100 WBC (Bld)1.2 %.[facility] HospitalCreatinine and Glomerular filtration rate.predicted panel (S/P/Bld)Ordered By: Bernabe Cr on 90-13-0826Ekwovqkbyg [Mass/Vol]1.78 mg/dL0.64-1.27 [facility] HospitalEosinophils Auto (Bld) [#/Vol]Ordered By: Bernabe Cr on 03-82-6114Zjelgxksldl (Bld) [#/Vol]0.3 10*3/uL0.0-0.45 [facility] HospitalEosinophils/100 WBC Auto (Bld)Ordered By: Bernabe Cr on 50-08-8684Vtdyqpshpzk/100 WBC (Bld)3.6 %.[facility] HospitalErythrocyte distribution width Auto (RBC) [Ratio]Ordered By: Bernabe Cr on 18-95-6973Pwpouhqnmxn distribution width (RBC) [Ratio]15.3 %12.0-14.8[facility] HospitalEstimated glomerular filtration rate (GFR) non- AmericanOrdered By: Bernabe Cr on 15-57-7389BEH/1.73 sq M.predicted among non-blacks MDRD (S/P/Bld) [Vol rate/Area]37 mL/MinPromedica Memorial HospitalHematocrit Auto (Bld) [Volume fraction]Ordered By: Bernabe Cr on 73-22-9625Ylywereias (Bld) [Volume fraction]36.2 %38.8-50.0[facility] HospitalHemoglobin [Mass/volume] in BloodOrdered By: Bernabe Cr on 99-41-1760Vshntwjtwm (Bld) [Mass/Vol]11.7 g/dL13.0-17.0[facility] HospitalLeukocytes [#/volume] corrected for nucleated erythrocytes in Blood by Automated coun Ordered By: Bernabe Cr on 45-93-4767YVX corrected for nucl RBC Auto (Bld) [#/Vol]8.1 10*3/uL4.1-10.5FTriHealth Bethesda North HospitalLymphocytes Auto (Bld) [#/Vol]Ordered By: Bernabe Cr on 12-51-5665Xhnujsgneon (Bld) [#/Vol]1.4 10*3/uL1.00-4.8[facility] HospitalLymphocytes/100 WBC Auto (Bld)Ordered By: Bernabe Cr on 27-95-9072Epydhlihhjz/100 WBC (Bld)16.9 %.[facility] HospitalH Auto (RBC) [Entitic mass] Ordered By: Bernabe Cr on 84-98-8527ZBK (RBC) [Entitic mass]27.4 pg 27.5-35.2FTriHealth Bethesda North HospitalMCHC Auto (RBC) [Mass/Vol]Ordered By: Bernabe Cr on 85-91-3053GVUV (RBC) [Mass/Vol]32.5 g/dL32.5-35.6 [facility] HospitalMCV Auto (RBC) [Entitic vol]Ordered By: Bernabe Cr on 63-11-0034PHD (RBC) [Entitic vol]84.3 fL83.5-101 [facility] HospitalMonocytes Auto (Bld) [#/Vol]Ordered By: Bernabe Cr on 07-60-9029Uanefejiv (Bld) [#/Vol]0.8 10*3/uL0.0-0.8 [facility] HospitalMonocytes/100 WBC Auto (Bld)Ordered By: Bernabe Cr on 87-41-9916Iybqpgxrh/100 WBC (Bld)10.1 %.[facility] HospitalNeutrophils Auto (Bld) [#/Vol]Ordered By: Bernabe Cr on 68-97-2290Mztsmrwvskf (Bld) [#/Vol]5.6 10*3/uL1.8-7.7FTriHealth Bethesda North HospitalNeutrophils/100 WBC Auto (Bld)Ordered By: Bernabe Cr on 65-60-1654Klvelvtejsb/100 WBC (Bld)68.2 %.[facility] HospitalNo Panel InformationOrdered By: Bernabe Cr on 05-22-2022 Estimated GFR ()45 mL/MinPromedica Memorial Hospital Comment on above:GFR estimated reference range: According to KDOQI guidelines, <60 ml/min/1.73m2 is sufficient todiagnose a patient with chronic kidney disease.Pharmacy Creatinine Clearance (Chem39.77[facility] HospitalNucleated erythrocytes [Presence] in Blood by Automated countOrdered By: Bernabe Cr on 74-35-3171Nfkpyxbap RBC Auto Ql (Bld)0.1 /100{WBC}0-0.5 [facility] HospitalPlatelet mean volume Auto (Bld) [Entitic vol] Ordered By: Bernabe Cr on 81-09-9296Atvvkkrw mean volume (Bld) [Entitic vol]8.7 fL6.6-10.1FTriHealth Bethesda North HospitalPlatelets Auto (Bld) [#/Vol]Ordered By: Bernabe Cr on 66-48-4160Cmoblzphm (Bld) [#/Vol]198 10*3/dL788-888AorrpjvmuPromedica Memorial HospitalRBC Auto (Bld) [#/Vol]Ordered By: Bernabe Cr on 07-55-4961WDO (Bld) [#/Vol]4.29 10*6/uL3.90-5.60 [facility] Hospitalerum or plasma anion gap determinationOrdered By: Bernabe Cr on 74-00-3768Zrlhr gap [Moles/Vol]13.3 mmol/L6.0-15.0 [facility] Hospitalerum or plasma calcium measurement (mass/volume)Ordered By: Bernabe Cr on 73-75-3834Bjbyawt [Mass/Vol]8.3 mg/dL8.2-10.2FSelect Medical Specialty Hospital - Youngstownerum or plasma chloride measurement (moles/volume)Ordered By: Bernabe Cr on 16-48-1715Mywrgflc [Moles/Vol]104 mmol/P90-521OfgaybyttGrand Lake Joint Township District Memorial Hospitalerum or plasma glucose measurement (mass/volume)Ordered By: Bernabe Cr on 05-22-2022 Glucose [Mass/Vol]180 mg/qC68-549QsylyankbPromedica Memorial HospitalComment on above:ADA recommended reference rangeRandom Glucose Reference Range is dependent on time and content of last meal. Glucose of more than 200 mg/dL in a nonstressed, ambulatory subject supports the diagnosisof Diabetes Mellitus.Serum or plasma potassium measurement (moles/volume)Ordered By: Bernabe Cr on 91-79-7962Iptcfkvzw [Moles/Vol]3.3 mmol/L3.5-5.1FSelect Medical Specialty Hospital - Youngstownerum or plasma sodium measurement (moles/volume)Ordered By: Bernabe Cr on 04-20-1602Hgbdkp [Moles/Vol]137 mmol/J284-681DxppfikzuGrand Lake Joint Township District Memorial Hospitalerum or plasma total carbon dioxide measurement (moles/volume) Ordered By: Bernabe Cr on 75-23-2531LW5 [Moles/Vol]23.0 mmol/L 22.0-30.0[facility] Hospitalerum or plasma urea nitrogen measurement (mass/volume)Ordered By: Bernabe Cr on 44-59-6593Nciv nitrogen [Mass/Vol]21 mg/dL9-23[facility] HospitalWBC Auto (Bld) [#/Vol]Ordered By: Bernabe Cr on 24-33-6427WTE (Bld) [#/Vol]8.1 10*3/uL4.1-10.5FTriHealth Bethesda North HospitalNo Panel InformationOrdered By: Bernabe Cr on 58-97-423689116880-Cssbreb Vitamin D Total15.9 ng/iB80-845 [facility] HospitalComment on above:VITAMIN D STATUS 25(OH)VITAMIN D RANGE (ng/mL) Deficient <20 Insufficient 20 to <85Jvdmrgmmwg10 to 100Reference: Sixto MF,Federico NC, Palomo LESLIE, et al. Evaluation,treatment, and prevention of vitamin D deficiency; an Endocrine Society clinical practice guideline. JCEM. 2010; 96(7):1911-30.Vitamin C level0.2 mg/dL0.4-2.0[facility] HospitalComment on above:This test was developed and its performance characteristicsdetermined by [employer]. It has not been cleared orapproved by the Food and Drug Administration.Vitamin C deficiency is generally defined as plasma orserum concentrations less than 0.2 mg/dL and levels between0.2 and 0.4 mg/dL are considered low.Performed at: [address] [id number] Director: Mamadou Rodriguez MD, Phone: [phone] [Mass/volume] in Serum or PlasmaOrdered By: Taz Barnes on 48-47-7337Vrhzat [Mass/Vol]5.5 ng/mL>5.9[facility] HospitalComment on above:Folate reference range: >5.9 ng/mlThe WHO technical consultation on folate and vitamin m22ztuvgqvghrzf has determined that folate concentrations lessthan 4 ng/ml are considered deficient.Laboratory - Chemistry and Chemistry - challengeOrdered By: Taz Barnes on 05-20-2022 Cobalamin (Vitamin B12) [Mass/Vol]169 pg/iY459-292HpnvdqbhdPromedica Memorial HospitalNo Panel InformationOrdered By: Taz Barnes on 63-41-4316Erw and Parasite Result 1FTriHealth Bethesda North HospitalOva and Parasite Result 1 [facility] HospitalOva or parasites identificationOrdered By: Taz Barnes on 36-30-7972Bqx and parasites identified LM Nom (Unsp spec) [facility] and parasites identified LM Nom (Unsp spec) [facility] HospitalLaboratory - Chemistry and Chemistry - challengeOrdered By: Janice Gonzalez on 53-72-9243Vpogqwxse [Mass/Vol]1.7 mg/dL 1.6-2.6FTriHealth Bethesda North HospitalAutomated erythrocytes count in urine sediment (number/area)Ordered By: Taz Barnes on 95-43-3354NCG Auto (Urine sed) [#/Area]50-100 [HPF]0-4FTriHealth Bethesda North HospitalAutomated leukocytes count in urine sediment (number/area)Ordered By: Taz Barnes on 01-81-8562DEA Auto (Urine sed) [#/Area]Innumerable [HPF]0-4FTriHealth Bethesda North HospitalAutomated urine hyaline casts count (number/volume)Ordered By: Taz Barnes on 83-59-7011Pulvyta casts Auto (U) [#/Vol]None seen [LPF]0-1 [facility] HospitalBilirubin Test strip Ql (U)Ordered By: Taz Barnes on 13-85-9160Xzhyedpic Ql (U)NegativeNegSelect Medical Cleveland Clinic Rehabilitation Hospital, Edwin ShawCasts typing in urine sediment by light microscopyOrdered By: Taz Barnes on 27-94-4269Juxzu LM Nom (Urine sed)None seen [LPF]None [facility] HospitalColor Auto (U)Ordered By: Taz Barnes on 05-18-2022 Color (U)YellowYellowPromedica Memorial HospitalKetones Auto test strip (U) [Mass/Vol]Ordered By: Taz Barnes on 93-82-9227Alxjzmo (U) [Mass/Vol] NegativeNegativePromedica Memorial HospitalNitrite Test strip Ql (U) Ordered By: Taz Barnes on 14-66-4686Flgbtgg Ql (U)NegativeNegSelect Medical Cleveland Clinic Rehabilitation Hospital, Edwin ShawProtein Auto test strip (U) [Mass/Vol]Ordered By: Taz Barnes on 08-61-5975Moqibnz (U) [Mass/Vol]100 mg/dLNegUniversity Hospitals Beachwood Medical Centerpecific gravity Auto test strip (U) [Rel density]Ordered By: Taz Barnes on 27-85-0800Ouocardd gravity (U) [Rel density]1.0101.001-1.030 [facility] Hospitalquamous epithelial cells detection in urine sediment by light microscopyOrdered By: Taz Barnes on 09-24-2602Wfxlyfwjti cells.squamous LM Ql (Urine sed)1-2 [HPF]0-2FTriHealth Bethesda North Hospital Urine bacteria detection by automated methodOrdered By: Taz Barnes on 00-85-3923Snwkygtw Auto Ql (U)None seenNone [facility] HospitalUrine clarity by refractometry automatedOrdered By: Taz Barnes on 42-76-5827Pwpvqss Refractometry automated (U)TurbidCleHolzer Medical Center – JacksonUrine culture routineOrdered By: Taz Barnes on 05-18-2022 Bacteria identified Cx Nom (U)No Growth 2 DaysPromedica Memorial Hospital Bacteria identified Cx Nom (U)No Growth 2 DaysPromedica Memorial Hospital Urine glucose measurement by automated test strip (mass/volume)Ordered By: Taz Barnes on 41-99-1652Cslhpnq Auto test strip (U) [Mass/Vol]Normal mg/dL NormalPromedica Memorial HospitalUrine hemoglobin detection by automated test stripOrdered By: Taz Barnes on 66-45-2348Akfwwhdhbc Auto test strip Ql (U)2+NegativePromedica Memorial HospitalUrine leukocyte esterase detection by automated test stripOrdered By: Taz Barnes on 65-18-3621Xmkrrgvws esterase Auto test strip Ql (U)4+NegativePromedica Memorial Hospital Urobilinogen Auto test strip (U) [Mass/Vol]Ordered By: Taz Barnes on 10-32-0222Hdtznvkqzbjs (U) [Mass/Vol]Normal mg/dLNormalPromedica Memorial HospitalYeast detection in urine sediment by light microscopyOrdered By: Taz Barnes on 64-87-2145Nethw LM Ql (Urine sed)None seen [HPF]None Seen [facility] HospitalpH Auto test strip (U)Ordered By: Taz Barnes on 34-83-7820iE (U)7.5 [pH]5.0-9.0[facility] HospitalActivated partial thromboplastin time (aPTT) in platelet poor plasma by coagulation a Ordered By: Tza Barnes on 55-88-8594gZCP Coag (PPP) [Time]29.5 s25.1-36.5 [facility] HospitalBody fluid albumin measurement (mass/volume) Ordered By: Taz Barnes on 02-94-9413Rwhrayo (Body fld) [Mass/Vol]2.9 g/dL 3.2-5.5FTriHealth Bethesda North HospitalCBC AUTO DIFFon 09-82-2740RKHB #0.0 103/ulNormal0.0-0.1The [facility] SystemComment on above:Performed By: #### CBC #### [facility] [address] [address] [address] Karen PierceBasophils/100 WBC (Bld)0.3 %Normal0.2-2.0The [facility] Comment on above:Performed By: #### CBC #### [facility] [address] [place] [address] Dr. Karen Valente #0.1 103/ulNormal0.0-0.7The [facility] SystemComment on above: Performed By: #### CBC #### [facility] [address] [place] [address] Dr. Karen Reyesosinophils/100 WBC (Bld)0.7 %Critically low0.9-7.0The [facility] SystemComment on above:Performed By: #### CBC #### [facility] [address] [place] [address] Dr. Karen Reyesrythrocyte distribution width (RBC) [Ratio]14.8 %Uzorrw26.0-15.0 [facility] Centerment on above:Performed By: #### CBC #### [facility] [address] [place] [address] Dr. Karen PierceHematocrit (Bld) [Volume fraction]39.4 %Critically low42.0-54.0 [facility] Centerment on above:Performed By: #### CBC #### [facility] [address] [place] [address] Dr. Karen PierceHemoglobin (Bld) [Mass/Vol]12.6 g/dLCritically low14.0-18.0The [facility] Hospitalment on above:Performed By: #### CBC #### [facility] [address] [place] [address] Dr. Karen Ayala #0.04 10e3/ulCritically high0.00-0.03The [facility] Comment on above:Performed By: #### CBC #### [facility] [address] [place] [address] Dr. Karen Ayala %0.4 %Normal0.0-0.5The [facility]ucl[facility] Hospitalment on above: Performed By: #### CBC #### [facility] [address] [place] [address] Dr. Karen Brandt #1.2 103/ulNormal1.2-3.8The [facility] HospitalComment on above:Performed By: #### CBC #### [facility] [address] [address] [address] Karen Kimmphocytes/100 WBC (Bld)11.8 %Critically low20.5-60.0The [facility] SystemComment on above:Performed By: #### CBC #### [facility] [address] [place] [address] Dr. Karen Figueroa DIFF REQNONormalThe [facility] HospitalComment on above: Performed By: #### CBC #### [facility] [address] [place] [address] Dr. Karen Michael (RBC) [Entitic mass]27.5 bpWlzltb94.9-34.0The [facility] SystemComment on above:Performed By: #### CBC #### [facility] [address] [place] [address] Dr. Karen Michael (RBC) [Mass/Vol]32.0 g/vNObkgws22.9-35.2The [facility] SystemComment on above:Performed By: #### CBC #### [facility] [address] [place] [address] Dr. Karen Schuster (RBC) [Entitic vol]86.0 eXNgcoeb00.0-94.0The [facility] SystemComment on above:Performed By: #### CBC #### [facility] [address] [place] [address] Dr. Karen Monteiro #1.4 103/ulCritically high0.3-0.8The [facility] Comment on above:Performed By: #### CBC #### [facility] [address] [place] [address] Dr. Karen Elizabethocytes/100 WBC (Bld)13.8 %Critically high1.7-12.0The [facility] SystemComment on above:Performed By: #### CBC #### [facility] [address] [place] [address] Dr. Karen Cronin #7.6 103/ulCritically high1.4-6.5The [facility] Comment on above:Performed By: #### CBC #### [facility] [address] [place] [address] Dr. Karen Bakerutrophils/100 WBC (Bld)73.0 %Fchrac56.0-75.0The [facility] SystemComment on above:Performed By: #### CBC #### [facility] [address] [place] [address] Dr. Karen PiercePlatelet mean volume (Bld) [Entitic vol]10.6 fLNormal9.5-13.5The [facility] HospitalComment on above:Performed By: #### CBC #### [facility] [address] [place] [address] Dr. Karen PiercePLT193 103/ucVggnqa930-088Mfx [facility] SystemComment on above: Performed By: #### CBC #### [facility] [address] [place] [address] Dr. Karen PierceRBC4.58 106/ulCritically low4.70-6.10The [facility] SystemComment on above:Performed By: #### CBC #### [facility] [address] [place] [address] Dr. Karen PierceWBC10.4 103/ulNormal4.0-11.0The [facility] SystemComment on above:Performed By: #### CBC #### [facility] [address] [place] [address] Dr. Karen PierceCT ABD/PELVIS WO CONon 17-59-7579HC ABD/PELVIS WO CONEXAMINATION: CT ABD/PELVIS WO CON [...] Electronically authenticated by: LORENZO SCHERER Date: 2022-05-16 09:21NoMartin Memorial HospitalCULTURE URINEon 13-94-0603TXGUOUT URINECulture Observations: MODERATE GROWTH OF MIXED SKIN JAS. NO POTENTIAL PATHOGENS SEEN.NormalThe [facility] SystemComment on above:Performed By: #### URTPCR #### [facility] [address] [place] [address] Dr. Karen Parksvid-19 PCR ([facility])on 98-11-9081EZWW-CoV-2 (COVID-19) RNA KARI+probe Ql (Unsp spec)Not detectedNormalNOT DETECTEDShelby Memorial Hospital Comment on above:Result Comment: When diagnostic [...] for this test is supported by the Regional Engagement Consultant of Health and Human Service's declaration [...] longer be used).Performed By: #### UA #### [facility] [address] [place] [address] Dr. Karen PierceCreatinine [Mass/volume] in UrineOrdered By: Taz Barnes on 27-21-0018Zfdjewkcdd (U) [Mass/Vol]68.1 mg/dLPromedica Memorial Hospital Comment on above:No reference range establishedER URINE PROFILEon 05-16-2022 Bilirubin Ql (U)NegativeNormalNEGATIVEShelby Memorial HospitalComment on above: Performed By: #### URTPCR #### [facility] [address] [place] [address] Dr. Karen Yang (U)CLEARNormalCLEARShelby Memorial HospitalComment on above: Performed By: #### URTPCR #### [facility] [address] [place] [address] Dr. Karen Salomon (U)YELLOWNormalYELLOWShelby Memorial HospitalComment on above: Performed By: #### URTPCR #### [facility] [address] [place] [address] Dr. Karen Daigle micrscopic examination will be performed if indicated. NormalShelby Memorial HospitalComment on above:Performed By: #### URTPCR #### [facility] [address] [place] [address] Dr. Karen PierceGlucose Ql (U)NegativeNormalNEGATIVEShelby Memorial HospitalComment on above:Performed By: #### URTPCR #### [facility] [address] [place] [address] Dr. Karen PierceHemoglobin Ql (U)MODERATEAbnormalNEGSelect Medical Specialty Hospital - Trumbull Comment on above:Performed By: #### URTPCR #### [facility] [address] [place] [address] Dr. Karen PierceKetones Ql (U)NegativeNormalNEGATIVEShelby Memorial HospitalComment on above:Performed By: #### URTPCR #### [facility] [address] [place] [address] Dr. Karen PierceLEUKOCYTESLARGEAbnormalNEGATIVEShelby Memorial HospitalComment on above:Performed By: #### URTPCR #### [facility] [address] [place] [address] Dr. Karen PierceNitrite Ql (U)NegativeNormalNEGATIVEShelby Memorial HospitalComment on above:Performed By: #### URTPCR #### [facility] [address] [place] [address] Dr. Karen PiercepH (U)5.5 [pH]Normal5-9S[facility]by Memorial HospitalComment on above: Performed By: #### URTPCR #### [facility] [address] [place] [address] Dr. Karen PierceSPEC GRAVITY<=1.737Rowmsbfp0.005-<=1.025[facility] Comment on above:Performed By: #### URTPCR #### [facility] [address] [place] [address] Dr. Karen PierceUA PROTEINNegativeNormalNEGATIVE/ TRACEThe [facility] Comment on above:Performed By: #### URTPCR #### [facility] [address] [address] [address] Karen Moulton MICRO INDINDICATEDNormalThe [facility] SystemComment on above: Performed By: #### URTPCR #### [facility] [address] [address] [address] Karen PierceUrobilinogen Qn (U)0.2 {Tonio'U}/dLNormal0.2 - 1.0The [facility] SystemComment on above:Performed By: #### URTPCR #### [facility] [address] [place] [address] Dr. Karen PierceGlobulin Calc (S) [Mass/Vol]Ordered By: Taz Barnes on 52-35-8412Mgngfpkh (S) [Mass/Vol]3.5 g/dLPromedica Memorial Hospital Laboratory - CoagulationOrdered By: Taz Barnes on 60-16-2038QH Coag (PPP) [Time]14.2 s9.0-12.9[facility] HospitalPROF 14(COMP METB)on 30-30-7664Rulfqyf [Mass/Vol]3.1 g/dLCritically low3.4-5.0The [facility] Comment on above:Performed By: #### URTPCR #### [facility] [address] [place] [address] Dr. Karen PierceAlbumin/Globulin [Mass ratio]0.7 {ratio}NormalThe [facility] SystemComment on above:Performed By: #### URTPCR #### [facility] [address] [place] [address] Dr. Karen Murillo [Catalytic activity/Vol]96 U/NAjhzto61-276Omc [facility] SystemComment on above:Performed By: #### URTPCR #### [facility] [address] [address] [address] Karen Matthew [Catalytic activity/Vol]46 U/BGgnwse49-50Ffm [facility] SystemComment on above:Performed By: #### URTPCR #### [facility] [address] [address] [address] Karen Sandyon gap [Moles/Vol]19.7 mmol/LNormalThe [facility] Comment on above:Performed By: #### URTPCR #### [facility] [address] [address] [address] Karen PierceAST [Catalytic activity/Vol]21 U/RTbsslm65-97Jme [facility] SystemComment on above:Performed By: #### URTPCR #### [facility] [address] [address] [address] Karen PierceBilirubin [Mass/Vol]0.3 mg/dLNormal0.2-1.0The [facility] Comment on above:Performed By: #### URTPCR #### [facility] [address] [place] [address] Dr. Karen PierceCalcium [Mass/Vol]8.9 mg/dLNormal8.5-10.1[facility] Comment on above:Performed By: #### URTPCR #### [facility] [address] [address] [address] Karen PierceChloride [Moles/Vol]101 mmol/PHciffb74-212Ssq [facility] Comment on above:Performed By: #### URTPCR #### [facility] [address] [address] [address] Karen PierceCO2 [Moles/Vol]18.3 mmol/LCritically low21.0-32.0The [facility] SystemComment on above:Performed By: #### URTPCR #### [facility] [address] [address] [address] Karen PierceCreatinine [Mass/Vol]8.99 mg/dLCritically high0.70-1.30The [facility] SystemComment on above:Performed By: #### URTPCR #### [facility] [address] [address] [address] Jones ChangEGFR-AF AMERICAN7 mL/min/1.93z8Hgqxiylqbo low>=60The [facility] SystemComment on above:Performed By: #### URTPCR #### [facility] [address] [address] [address] Karen ReyesGFR-NON AF AMERICAN6 mL/min/1.49t7Pxuaqiwvhw low>=60The [facility] SystemComment on above:Performed By: #### URTPCR #### [facility] [address] [place] [address] Dr. Karen PierceGlobulin (S) [Mass/Vol]4.7 g/dLNormalThe [facility] SystemComment on above:Performed By: #### URTPCR #### [facility] [address] [place] [address] Dr. Karen PierceGlucose [Mass/Vol]110 mg/dLCritically xvpo37-608Asx [facility] SystemComment on above:Performed By: #### URTPCR #### [facility] [address] [place] [address] Dr. Karen PiercePotassium [Moles/Vol]5.0 mmol/LNormal3.5-5.1The [facility] Comment on above:Performed By: #### URTPCR #### [facility] [address] [place] [address] Dr. Karen PierceProtein [Mass/Vol]7.8 g/dLNormal6.4-8.2The [facility] Comment on above:Performed By: #### URTPCR #### [facility] [facility] [address] [place] [address] Dr. Karen PierceSodium [Moles/Vol]134 mmol/LCritically pwg983-212Xer [facility] SystemComment on above:Performed By: #### URTPCR #### [facility] [address] [place] [address] Dr. Karen PierceUrea nitrogen [Mass/Vol]129.0 mg/dLCritically high7.0-18.0The [facility] Health SystemComment on above:Performed By: #### URTPCR #### [facility] [address] [place] [address] Dr. Yilan ChangUrea nitrogen/Creatinine [Mass ratio]14.3 mg/mgCleveland Clinic Children's Hospital for RehabilitationComment on above:Performed By: #### URTPCR #### [facility] [address], [place] [address] Dr. Karen PiercePlatelet poor plasma international normalized ratio (INR) by coagulation assay (relatOrdered By: Taz Barnes on 32-80-7437OHK Coag (PPP) [Relative time]1.3 {INR}[facility] HospitalComment on above:INR Therapeutic Range A) Pre- [...] Serum or PlasmaOrdered By: Taz Barnes on 03-42-0993Gqkwunl [Mass/Vol]6.4 g/dL6.1-7.9[facility] Memorial Hospitalerum or plasma alanine aminotransferase measurement without P-5'-P (enzymatic activiOrdered By: Taz Barnes on 84-98-9765MEP No additional P-5'-P [Catalytic activity/Vol]38 U/L83-95JkdqzcynhGrand Lake Joint Township District Memorial Hospitalerum or plasma albumin/globulin mass ratioOrdered By: Taz Barnes on 71-00-6047Cwmevvr/Globulin [Mass ratio]0.8 {ratio}[facility] Memorial Hospitalerum or plasma alkaline phosphatase measurement (enzymatic activity/volume)Ordered By: Taz Barnes on 05-16-2022 ALP [Catalytic activity/Vol]78 U/P43-99SwzwcxsciGrand Lake Joint Township District Memorial Hospitalerum or plasma aspartate aminotransferase measurement (enzymatic activity/volume)Ordered By: Taz Barnes on 73-12-7810AEA [Catalytic activity/Vol]19 U/C49-54FpqarrqkiGrand Lake Joint Township District Memorial Hospitalerum or plasma total bilirubin measurement (mass/volume) Ordered By: Taz Barnes on 50-25-1338Nlxxomqqr [Mass/Vol]0.4 mg/dL0.3-1.2 [facility] HospitalURINE MICROSCOPIC ONLYon 92-13-6752DLCNKQFX SMALLAbnormalNONE SEENShelby Memorial HospitalComment on above:Performed By: #### URTPCR #### [facility] [address] [place] [address] Dr. Karen Hunt identified Cx Nom (U)INDICATEDCleveland Clinic Children's Hospital for RehabilitationComment on above:Performed By: #### URTPCR #### [facility] [address] [address] [address] Karen Patterson SEENNormalNONE SEENShelby Memorial HospitalComselect specialty hospital on above:Performed By: #### URTPCR #### [facility] [address] [place] [address] Dr. Karen Yusufystals LM Nom (Urine sed)NONE SEENNormalNONE SEENShelby Memorial HospitalComselect specialty hospital on above:Performed By: #### URTPCR #### [facility] [address] [place] [address] Dr. Jones ChangEpithelial cells LM Ql (Urine sed)NONE SEENNormalNONE SEEN /RARE [facility] HospitalComselect specialty hospital on above:Performed By: #### URTPCR #### [facility] [address] [place] [address] Dr. Karen GuerraUSYOLANDA SEENNormalNONE SEENShelby Memorial HospitalComselect specialty hospital on above:Performed By: #### URTPCR #### [facility] [address] [place] [address] Dr. Karen SanchezSbkyyGTZ50-91Ciwqyljb3-6Mgy [facility] HospitalComselect specialty hospital on above: Performed By: #### URTPCR #### [facility] [address] [address] [address] Karen Shaw (U) [#/Vol]/uLAbnormalNONE SEENOhioHealth [facility]ering[facility] on above:Performed By: #### URTPCR #### [facility] [address] [place] [address] Dr. Karen Vázquez sodium measurement (moles/volume)Ordered By: Taz Barnes on 35-09-9494Tgusrv (U) [Moles/Vol]42.0 mmol/LFTriHealth Bethesda North Hospital Comment on above:No reference range establishedXR ABD FLAT_UPon 37-23-4206GL ABD FLAT_UPEXAMINATION: XR ABD FLAT_UP HISTORY: Fatigue [...] Electronically authenticated by: LORENZO SCHERER Date: 2022-05-16 09:25No[facility] AUTO DIFFon 84-06-2575FTUW #0.0 103/ulNormal0.0-0.1The [facility] Health SystemComment on above:Performed By: #### UA #### [facility] [address] [address] [address] Karen Murphysophils/100 WBC (Bld)0.3 %Normal0.2-2.0[facility] Comment on above:Performed By: #### UA #### [facility] [address] [address] [address] Karen Valente #0.1 103/ulNormal0.0-0.7The [facility] Health SystemComment on above: Performed By: #### UA #### [facility] [address] [address] [address] Karen Reyesosinophils/100 WBC (Bld)0.7 %Critically low0.9-7.0The [facility] Health SystemComment on above:Performed By: #### UA #### [facility] [address] [address] [address] Karen Reyesrythrocyte distribution width (RBC) [Ratio]14.9 %Zohsql03.0-15.0 The [facility] Health SystemComment on above:Performed By: #### UA #### [facility] [address] [place] [address] Dr. Karen PierceHematocrit (Bld) [Volume fraction]39.8 %Critically low42.0-54.0 The [facility] Health SystemComment on above:Performed By: #### UA #### [facility] [address] [place] [address] Dr. Karen PierceHemoglobin (Bld) [Mass/Vol]12.7 g/dLCritically low14.0-18.0The [facility] Health SystemComment on above:Performed By: #### UA #### [facility] [address] [place] [address] Dr. Karen Ayala #0.06 10e3/ulCritically high0.00-0.03The [facility] Comment on above:Performed By: #### UA #### [facility] [address] [place] [address] Dr. Karen Ayala %0.5 %Normal0.0-0.5The [facility] Health SystemComment on above: Performed By: #### UA #### [facility] [address] [place] [address] Dr. Karen Torres #0.9 103/ulCritically low1.2-3.8The [facility] Comment on above:Performed By: #### UA #### [facility] [address] [place] [address] Dr. Karen Brandthocytes/100 WBC (Bld)7.1 %Critically low20.5-60.0[facility] Memorial HospitalComment on above:Performed By: #### UA #### [facility] [address] [place] [address] Dr. Karen GarzaUAL DIFF REQNONormalThe [facility] Health SystemComment on above: Performed By: #### UA #### [facility] [address] [place] [address] Dr. Karen Whitt (RBC) [Entitic mass]27.7 urAjkaqi03.9-34.0The [facility] SystemComment on above:Performed By: #### UA #### [facility] [address] [place] [address] Dr. Karen Michael (RBC) [Mass/Vol]31.9 g/jUKkrtrp31.9-35.2The [facility] Health SystemComment on above:Performed By: #### UA #### [facility] [address] [place] [address] Dr. Karen Schuster (RBC) [Entitic vol]86.7 mCGawduw28.0-94.0The [facility] Health SystemComment on above:Performed By: #### UA #### [facility] [address] [place] [address] Dr. Karen Monteiro #1.0 103/ulCritically high0.3-0.8The [facility] Comment on above:Performed By: #### UA #### [facility] [address] [place] [address] Dr. Karen Elizabethocytes/100 WBC (Bld)8.5 %Normal1.7-12.0The [facility] Comment on above:Performed By: #### UA #### [facility] [address] [place] [address] Dr. Karen Cronin #9.9 103/ulCritically high1.4-6.5The [facility] Comment on above:Performed By: #### UA #### [facility] [address] [place] [address] Dr. Karen Bakerutrophils/100 WBC (Bld)82.9 %Critically high43.0-75.0The [facility] SystemComment on above:Performed By: #### UA #### [facility] [address] [place] [address] Dr. Karen Burkett mean volume (Bld) [Entitic vol]9.7 fLNormal9.5-13.5The [facility] SystemComment on above:Performed By: #### UA #### [facility] [address] [place] [address] Dr. Karen LoyaT206 103/bbNswdtp935-117Jww [facility] SystemComment on above: Performed By: #### UA #### [facility] [address] [place] [address] Dr. Karen PierceRBC4.59 106/ulCritically low4.70-6.10The [facility] SystemComment on above:Performed By: #### UA #### [facility] [address] [place] [address] Dr. Karen PierceWBC11.9 103/ulCritically high4.0-11.0The [facility] SystemComment on above:Performed By: #### UA #### [facility] [address] [place] [address] Dr. Karen PierceLIPASEon 75-26-3387Usragq [Catalytic activity/Vol]340.0 U/LNormal 73.0-393.0The [facility] Hospitalment on above:Performed By: #### UA #### [facility] [address] [place] [address] Dr. Karen Leos 14(COMP METB)on 29-99-6959Ekpvmvu [Mass/Vol]3.1 g/dL Critically low3.4-5.0The [facility] on above:Performed By: #### UA #### [facility] [address] [place] [address] Dr. Karen PierceAlbumin/Globulin [Mass ratio]0.7 {ratio}NormalThe [facility] SystemComselect specialty hospital on above:Performed By: #### UA #### [facility] [address] [place] [address] Dr. Karen Murillo [Catalytic activity/Vol]105 U/JThotfh31-860Qyu [facility] SystemComselect specialty hospital on above:Performed By: #### UA #### [facility] [address] [place] [address] Dr. Karen Matthew [Catalytic activity/Vol]49 U/FRvbxpl46-41Uew [facility] SystemComment on above:Performed By: #### UA #### [facility] [address] [place] [address] Dr. Karen Landon gap [Moles/Vol]18.4 mmol/LNormalShelby Memorial Hospital Comment on above:Performed By: #### UA #### [facility] [address] [address] [address] Karen PierceAST [Catalytic activity/Vol]20 U/MBplohd48-47Lvv [facility] SystemComment on above:Performed By: #### UA #### [facility] [address] [address] [address] Karen PierceBilirubin [Mass/Vol]0.3 mg/dLNormal0.2-1.0The [facility] Comment on above:Performed By: #### UA #### [facility] [address] [address] [address] Karen PierceCalcium [Mass/Vol]9.1 mg/dLNormal8.5-10.1The [facility] Comment on above:Performed By: #### UA #### [facility] [address] [place] [address] Dr. Karen PierceChloride [Moles/Vol]103 mmol/GKgiryo64-055Wfd [facility] Comment on above:Performed By: #### UA #### [facility] [address] [place] [address] Dr. Karen PierceCO2 [Moles/Vol]20.1 mmol/LCritically low21.0-32.0The [facility] SystemComment on above:Performed By: #### UA #### [facility] [address] [address] [address] Karen PierceCreatinine [Mass/Vol]9.58 mg/dLCritically high0.70-1.30The [facility] SystemComment on above:Performed By: #### UA #### [facility] [address] [place] [address] Dr. Jones ChangEGFR-AF AMERICAN6 mL/min/1.25d2Aixnzaoygr low>=60The [facility] SystemComment on above:Performed By: #### UA #### [facility] [address] [place] [address] Dr. Karen ReyesGFR-NON AF AMERICAN5 mL/min/1.11l6Cgmimcbafv low>=60The [facility] SystemComment on above:Performed By: #### UA #### [facility] [address] [address] [address] Karne PierceGlobulin (S) [Mass/Vol]4.6 g/dLNormalThCleveland Clinic Avon HospitalComment on above:Performed By: #### UA #### [facility] [address] [address] [address] Karen PierceGlucose [Mass/Vol]114 mg/dLCritically uwqh11-004Snk [facility] SystemComment on above:Performed By: #### UA #### [facility] [address] [place] [address] Dr. Karen PiercePotassium [Moles/Vol]5.5 mmol/LCritically high3.5-5.1The [facility] SystemComment on above:Performed By: #### UA #### [facility] [address] [place] [address] Dr. Karen PierceProtein [Mass/Vol]7.7 g/dLNormal6.4-8.2The [facility] Comment on above:Performed By: #### UA #### [facility] [address] [place] [address] Dr. Karen PierceSodium [Moles/Vol]136 mmol/VDbvojl633-362Irf [facility] Comment on above:Performed By: #### UA #### [facility] [address] [place] [address] Dr. Karen PierceUrea nitrogen [Mass/Vol]134.0 mg/dLCritically high7.0-18.0The [facility] SystemComment on above:Performed By: #### UA #### [facility] [address] [place] [address] Dr. Karen Kennedy nitrogen/Creatinine [Mass ratio]14.0 mg/mgNormalThCleveland Clinic Avon HospitalComment on above:Performed By: #### UA #### [facility] [address] [place] [address] Dr. Karen JonesF CHEM 8 (BAS METB)on 33-48-8346Yynbv gap [Moles/Vol]12.6 mmol/LNormalShelby Memorial HospitalComment on above:Performed By: #### BMP #### [facility] [address] [address] [address] Karen PierceCalcium [Mass/Vol]8.7 mg/dLNormal8.5-10.1The [facility] Comment on above:Performed By: #### BMP #### [facility] [address] [address] [address] Karen PierceChloride [Moles/Vol]103 mmol/SAzzbzc27-604Vbq [facility] Comment on above:Performed By: #### BMP #### [facility] [address] [place] [address] Dr. Karen PierceCO2 [Moles/Vol]27.3 mmol/ZNhdjgq54.0-32.0The [facility] Comment on above:Performed By: #### BMP #### [facility] [address] [address] [address] Karen PierceCreatinine [Mass/Vol]1.26 mg/dLNormal0.70-1.30The [facility] SystemComment on above:Performed By: #### BMP #### [facility] [address] [address] [address] Jones ChangEGFR-AF PORTUGUESE>60Normal>=60The [facility] SystemComment on above:Performed By: #### BMP #### [facility] [address] [address] [address] Karen ReyesGFR-NON AF KWOHINKE84 mL/min/1.75l3Kwugflooqi low>=60The [facility] SystemComment on above:Performed By: #### BMP #### [facility] [address] [place] [address] Dr. Karen PierceGlucose [Mass/Vol]111 mg/dLCritically hwei61-046Drt [facility] SystemComment on above:Performed By: #### BMP #### [facility] [address] [address] [address] Karen PiercePotassium [Moles/Vol]3.9 mmol/LNormal3.5-5.1The [facility] Comment on above:Performed By: #### BMP #### [facility] [address] [address] [address] Karen PierceSodium [Moles/Vol]139 mmol/AHrvedm588-353Llt [facility] Comment on above:Performed By: #### BMP #### [facility] [address] [address] [address] Karen PierceUrea nitrogen [Mass/Vol]21.0 mg/dLCritically high7.0-18.0The [facility] SystemComment on above:Performed By: #### BMP #### [facility] [address] [address] [address] Karen PierceUrea nitrogen/Creatinine [Mass ratio]16.7 mg/mgNormalThe [facility] SystemComment on above:Performed By: #### BMP #### [facility] [address] [address] [address] Karen PierceComprehensive Metabolic Panelon 29-63-9820Wewibdl [Mass/Vol]4.5 g/dLNormal3.6-5.1[facility] SpecialistComment on above:Performed By: #### CMP, LIPD #### [facility] [address], [place] [id number]/Globulin [Mass ratio]2.0 {ratio}Normal1.0-2.5Nortbanner rehabilitation hospital westn [facility] SpecialistComment on above:Performed By: #### CMP, LIPD #### [facility] [address], [place] [id number] [Catalytic activity/Vol]97 U/BOcvxiu82-510Cgirknqv [facility] SpecialistComment on above:Performed By: #### CMP, LIPD #### [facility] [address], [place] [id number] [Catalytic activity/Vol]18 U/LNormal9-46[facility] SpecialistComment on above:Result Comment: 04/25/2021 Female reference range changed.Performed By: #### CMP, LIPD #### [facility] [address], [place] [id number] gap [Moles/Vol]17 mmol/HFhsjve66-05Jecqqeeh [place] [facility] SpecialistComment on above:Result Comment: Effective 05/31/2019 reference range changed.Performed By: #### CMP, LIPD #### [facility] [address], [place] [id number] [Catalytic activity/Vol]15 U/RXtehrd29-92Fsuoeexl [place] [facility] SpecialistComment on above:Performed By: #### CMP, LIPD #### [facility] [address], [place] [id number] [Mass/Vol]0.55 mg/dLNormal0.30-1.20NortOhioHealth Van [facility] Hospital SpecialistComment on above:Performed By: #### CMP, LIPD #### [facility] [address], [place] [id number]/CREA17 RatioNormal6-22NoPat[facility] State [facility]airy [facility] Specialist Comment on above:Performed By: #### CMP, LIPD #### [facility] [address], [place] [id number] [Mass/Vol]9.8 mg/dLNormal8.6-10.2[facility] SpecialistComment on above:Performed By: #### CMP, LIPD #### [facility] [address], [place] [id number] [Moles/Vol]106 mmol/ABqgjgg82-721Ulkmnztk [place] [facility] SpecialistComment on above:Performed By: #### CMP, LIPD #### [facility] [address], [place] [id number] [Moles/Vol]23 mmol/GIreess96-18Dntmdgbd [place] [facility] SpecialistComment on above:Performed By: #### CMP, LIPD #### [facility] [address], [place] [id number] [Mass/Vol]1.2 mg/dLNormal0.7-1.4NoReg[facility] Hospital [facility] SpecialistComment on above:Performed By: #### CMP, LIPD #### [facility] [address], [place] [id number] mL/min/1.85p0Dukhgv>60NoReg[facility] SpecialistComment on above:Performed By: #### CMP, LIPD #### [facility] [address], [place] [id number] mL/min/1.72a0Stn>60NoReg[facility] Specialist Comment on above:Performed By: #### CMP, LIPD #### [facility] [address], [place] [id number] (S) [Mass/Vol]2.3 g/dLNormal1.9-3.7NoReg[facility] Hospital [facility] SpecialistComment on above:Performed By: #### CMP, LIPD #### [facility] [address], [place] [id number] [Mass/Vol]105 mg/zXIjbm42-80Vkgevaqa [place] [facility] SpecialistComment on above:Result Comment: For FASTING Glucose --- ADA reference ranges: Normal 65-99 mg/dl Prediabetes 100-125 Diabetes >/= 126Performed By: #### CMP, LIPD #### [facility] [address], [place] [id number] [Moles/Vol]4.1 mmol/LNormal3.5-5.5NoReg[facility] SpecialistComment on above:Performed By: #### CMP, LIPD #### [facility] [address], [place] [id number] [Mass/Vol]6.8 g/dLNormal6.1-8.1NortherPremier Health [facility] SpecialistComment on above:Performed By: #### CMP, LIPD #### [facility] [address], [place] [id number] [Moles/Vol]142 mmol/ZLptgfh468-052Hanakotm [place] [facility] SpecialistComment on above:Performed By: #### CMP, LIPD #### [facility] [address], [place] [id number] nitrogen [Mass/Vol]20 mg/dLNormal7-25NortOhioHealth Van Wert Hospital SpecialistComment on above:Performed By: #### CMP, LIPD #### [facility] [address], [place] [id number] Panelon 84-15-8149Dkaomhpxewk [Mass/Vol]109 mg/dLLow 125-200NoReg[facility] SpecialistComment on above:Result Comment: Low risk < 200mg/dL Borderline risk 201-239 mg/dl High risk > or equal to 240Performed By: #### CMP, LIPD #### [facility] [address], [place] [id number] in HDL [Mass/Vol]30 mg/dLLow>40NoReg[facility] SpecialistComment on above:Result Comment: High Cardiovascular Risk HDL <40 mg/dL Low Cardiovascular Risk HDL > or equal to 60 mg/dlPerformed By: #### CMP, LIPD #### [facility] [address], [place] [id number] in LDL [Mass/Vol]54 mg/dLNoOhioHealth Shelby Hospital SpecialistComment on above:Result Comment: LDL ATP III CLASSIFICATION LDL less than 100 mg/dl Optimal LDL 100-129 mg/dl Near or above optimal LDL 130-159 Borderline high LDL 160-189 High LDL greater than 189 mg/dl Very HighPerformed By: #### CMP, LIPD #### [facility] [address], [place] [id number] in VLDL [Mass/Vol]25 mg/dLNormalNoRegency [facility] SpecialistComment on above:Performed By: #### CMP, LIPD #### [facility] [address], [place] [id number].total/Cholesterol in HDL [Mass ratio]4 {ratio} NormalHocking Valley Community Hospital SpecialistComment on above:Performed By: #### CMP, LIPD #### [facility] [address], [place] [id number] [Mass/Vol]126 mg/yCZnpxaq17-893Vbwcbpjp [facility] SpecialistComment on above:Result Comment: TRIG ATPIII CLASSIFICATIONS TRIG less than 150 mg/dl Normal TRIG 150-199 mg/dl Borderline High TRIG 200-500 mg/dl High TRIG greather than 500 mg/dl Very HighPerformed By: #### CMP, LIPD #### [facility] [address] [place], [place] [id number] Vital Signs Date TimeVital SignValuePerforming CajaifapkAetaedxd45-26-5345 10:56-0500Body oaxggq414 cmTeo Al MD Work Phone: [facility]11-04-2025 10:56-0500 Body mass index (BMI) [Ratio]25.04 kg/c8SqonjxTeo Al MD Work Phone: [facility]11-04-2025 10:56-0500 Body vrovub99.45 kgTeo Al MD Work Phone: [facility]11-04-2025 10:56-0500 Diastolic blood mdnopmst27 mm[Hg]Teo Al MD Work Phone: [facility]11-04-2025 10:56-0500 Heart rate63 /minTeo Al MD Work Phone: [facility]11-04-2025 10:56-0500 Systolic blood lyyaeghm293 mm[Hg]Teo Al MD Work Phone: [facility]10-15-2025 14:24-0400 Body nlirfu074.96 Mitra Emerson MD Work Phone: [facility]10-15-2025 14:24-0400 Body mass index (BMI) [Ratio]24.7 kg/t4UhxbnrStanley Emerson MD Work Phone: [facility]10-15-2025 14:24-0400 Body yhdjjm36.2 kgStanley Emerson MD Work Phone: 1(567)[address] [place], [place] [address]10-15-2025 14:24-0400 Diastolic blood hmhahpys38 mm[Hg]Stanley Emerson MD Work Phone: 1(774)[address] [place], [place] [address]8210-15-2025 14:24-0400 Heart rate60 /Fior Emerson MD Work Phone: 1(173)[address] [place], [place] [address]8210-15-2025 14:24-0400 Respiratory rate16 /Fior Emerson MD Work Phone: [phone])[address] [place], [place] 4098210-15-2025 14:24-0400 SaO2% (BldA) [Mass fraction]96 %Stanley Emerson MD Work Phone: 1(765)[address] [place], [place] 4098210-15-2025 14:24-0400 Systolic blood jgnvlgyo900 mm[Hg]Stanley Emerson MD Work Phone: 1(845)[address] [place], [place] 4098206-11-2025 15:54-0400 Body mecgpm445.96 cmEharmony Emerson MD Work Phone: [phone] [place], [place] 4098206-11-2025 15:54-0400 Body mass index (BMI) [Ratio]25.7 kg/s0LcijtdStanley Emerson MD Work Phone: [phone])[address] [place], [place] 4098206-11-2025 15:54-0400 Body xdznpi72.77 kgStanley Emerson MD Work Phone: 1(540)[address] [place], [place] 4098206-11-2025 15:54-0400 Diastolic blood mm[Hg]Stanley Emerson MD Work Phone: 1(275)[address] [place], [place] 4098206-11-2025 15:54-0400 Heart rate66 /Fior Emerson MD Work Phone: 1(004)[address] [place], [place] 4098206-11-2025 15:54-0400 Respiratory rate16 /Fior Emerson MD Work Phone: 1(799)[address] [place], [place] 4098206-11-2025 15:54-0400 SaO2% (BldA) [Mass fraction]99 %Stanley Emerson MD Work Phone: 1(866)[address] [place], [place] 4098206-11-2025 15:54-0400 Systolic blood gcvryvem85 mm[Hg]Stanley Emerson MD Work Phone: 1(815)[address] [place], [place] 4098205-22-2025 15:01-0400 Diastolic blood shhjxcij44 mm[Hg]Stanley Emerson MD Work Phone: 1(186)[address] [place], [place] 9564805-22-2025 15:01-0400Systolic blood eegdqqrk33 mm[Hg]Stanley Emerson MD Work Phone: 1(318)[address] [place], [place] 9564805-19-2025 17:50-0400Diastolic blood mm[Hg]Stanley Emerson MD Work Phone: 1(048)[address] [place], [place] 4098205-19-2025 17:50-0400 Heart rate66 /Fior Emerson MD Work Phone: 1(167)[address] [place], [place] 4098205-19-2025 17:50-0400 Respiratory rate20 /Fior Emerson MD Work Phone: 1(035)[address] [place], [place] 4098205-19-2025 17:50-0400 SaO2% (BldA) [Mass fraction]95 %Stanley Emerson MD Work Phone: [phone] [place], [place] 4098205-19-2025 17:50-0400 Systolic blood mvgurytr748 mm[Hg]Stanley Emerson MD Work Phone: [phone] [place], [place] [id number] 14:20-0400 Body .6 [degF]Stanley Emesron MD Work Phone: 1(605)[address] [place], [place] 4098205-19-2025 13:50-0400 Inhaled oxygen flow rate2 L/Fior Emerson MD Work Phone: 1(852)[address] [place], [place] 4098205-19-2025 12:16-0400 Body dpanys127.96 Mitra Emerson MD Work Phone: 1(040)[address] [place], [place] 4098205-19-2025 12:16-0400 Body nmhapa84.26 kgStanley Emerson MD Work Phone: [facility]05-16-2025 14:43-0400 Body nvmiai013 cmRuby Montana MD Work Phone: [facility]05-16-2025 14:43-0400 Body mass index (BMI) [Ratio]25.68 kg/m2Ruby Montana MD Work Phone: [facility]05-16-2025 14:43-0400 Body yruksj16.72 kgRuby Montana MD Work Phone: [facility]05-16-2025 14:43-0400 Diastolic blood ajinzsgv99 mm[Hg]Ruby Montana MD Work Phone: [facility]05-16-2025 14:43-0400 Heart rate75 /Tevin Montana MD Work Phone: [facility]05-16-2025 14:43-0400 Systolic blood iqecrpbm39 mm[Hg]Ruby Montana MD Work Phone: [facility]05-13-2025 08:35-0400 Diastolic blood oiqadobm73 mm[Hg]Julio Cesar Gaspar MD Work Phone: [facility]05-13-2025 08:35-0400Heart rate66 /Mary Gaspar MD Work Phone: [facility]05-13-2025 08:35-0400Systolic blood xywdzuww777 mm[Hg]Julio Cesar Gaspar MD Work Phone: [facility]05-13-2025 07:05-0400Body zncezlslkgb16.1 [degF]Julio Cesar Gaspar MD Work Phone: [facility]05-13-2025 07:05-0400 Respiratory rate18 /minJulio Cesar Gaspar MD Work Phone: [facility]05-13-2025 07:05-8059IcH3% (BldA) [Mass fraction]94 %Julio Cesar Gaspar MD Work Phone: [facility]05-10-2025 16:30-0400Body mnvxhu558 Milly Gaspar MD Work Phone: [facility]05-10-2025 16:30-0400Body mass index (BMI) [Ratio]22.47 kg/p2ArxygrJulio Cesar Gaspar MD Work Phone: [facility]05-10-2025 16:30-0400Body napktr02.38 kgJulio Cesar Gaspar MD Work Phone: [facility]05-01-2025 09:38-0400Body .6 [degF][facility]05-01-2025 09:38-0400 Diastolic blood pdqpjcuv62 mm[Hg][facility]05-01-2025 09:38-0400Heart rate72 /[facility]05-01-2025 09:38-0400Respiratory rate16 /[facility]05-01-2025 09:38-6691SuU0% (BldA) [Mass fraction]98 %[facility] 09-23-2024 09:38-0400Systolic blood mm[Hg][facility]04-29-2025 14:08-0400Body vyihay530 Mitra Emerson MD Work Phone: [facility]co[facility]58-0550 14:08-0400Body mass index (BMI) [Ratio]26.06 kg/g8ZtjkpuStanley Emerson MD Work Phone: [facility] HospitalXdrznvzjrt01-73-5037 14:08-0400Body ksksso83.08 kgStanley Emerson MD Work Phone: [facility] HospitalCfrugvlcqc25-69-3761 09:40-0400Body xutsps057 cm Teo Al MD Work Phone: [facility]04-18-2025 09:40-0400 Body mass index (BMI) [Ratio]26.32 kg/n8VaxtmaTeo Al MD Work Phone: 1(054)611-[address] [place], [place] 2936504-18-2025 09:40-0400 Body dldaax02.99 kgTeo Al MD Work Phone: 1(972)[address]04-18-2025 09:40-0400 Diastolic blood oeeorzuo47 mm[Hg]Teo Al MD Work Phone: 1(588)[address]04-18-2025 09:40-0400 Heart rate68 /minTeo Al MD Work Phone: 1(860)[address]04-18-2025 09:40-0400 Systolic blood mmreiqcj929 mm[Hg]Teo Al MD Work Phone: 1(146)[address]03-19-2025 10:26-0400 Body idyacz764.96 cmEharmony Emerson MD Work Phone: 1(693)[address]03-19-2025 10:26-0400 Body mass index (BMI) [Ratio]26.1 kg/e8CfarzjStanley Emerson MD Work Phone: 1(963)[address]03-19-2025 10:26-0400 Body kibgqj24.19 kgStanley Emerson MD Work Phone: 1(337)[address]03-19-2025 10:26-0400 Diastolic blood dcbjybmk38 mm[Hg]Stanley Emerson MD Work Phone: 1(438)464-[address] [place], [place] 7206903-19-2025 10:26-0400 Heart rate65 /Fior Emerson MD Work Phone: 1(336)061-[address] [place], [place] 7206903-19-2025 10:26-0400 Respiratory rate16 /Fior Emerson MD Work Phone: 1(047)963-[address] [place], [place] 7206903-19-2025 10:26-0400 SaO2% (BldA) [Mass fraction]97 %Stanley Emerson MD Work Phone: [facility]03-19-2025 10:26-0400 Systolic blood mm[Hg]Stanley Emerson MD Work Phone: [facility]03-06-2025 11:13-0500 Body ivwxgg481 cmTeo Al MD Work Phone: [facility]03-06-2025 11:13-0500 Body mass index (BMI) [Ratio]26.19 kg/s6JfojfaTeo Al MD Work Phone: [address] [place], [place] 0457003-06-2025 11:13-0500 Body iogmqh83.53 kgTeo Al MD Work Phone: 1(424)283-[address] [place], [place] 2936503-06-2025 11:13-0500 Diastolic blood ylpxotbk56 mm[Hg]Teo Al MD Work Phone: [address] [place], [place] 0457003-06-2025 11:13-0500 Heart rate67 /minTeo Al MD Work Phone: [facility]03-06-2025 11:13-0500 Systolic blood dggmconw38 mm[Hg]Teo Al MD Work Phone: [address] [place], [place] 0457002-20-2025 10:31-0500 Blood Pressure LocationJENNIFER JOSSELIN [facility]02-20-2025 10:31-0500Diastolic blood efyxuoak36 mm[Hg]HEATHER JOSSELIN [facility]02-20-2025 10:31-0500Heart rate68 /minJENNIFER JOSSELIN [facility]02-20-2025 10:31-0500Respiratory rate18 /minJENNIFER JOSSELIN [facility]02-20-2025 10:31-0500Systolic blood vnsitagk88 mm[Hg]HEATHER OMALLEY [facility]12-27-2024 09:47-0500Body njkieo679 cmTeo Al MD Work Phone: 1([phone]12-27-2024 09:47-0500 Body mass index (BMI) [Ratio]26.58 kg/e7NdplulTeo Al MD Work Phone: 1(642)[address]12-27-2024 09:47-0500 Body .89 kgTeo Al MD Work Phone: 1(003)[address] [place], [place] 2936512-27-2024 09:47-0500 Diastolic blood zyjpjmwu69 mm[Hg]Teo Al MD Work Phone: 1(334)[address] [place], [place] 2936512-27-2024 09:47-0500 Heart rate80 /minTeo Al MD Work Phone: 1(437)124-[address] [place], [place] 2936512-27-2024 09:47-0500 Systolic blood rwxbyiki153 mm[Hg]Teo Al MD Work Phone: 1(493)675-[address] [place], [place] 2936512-19-2024 14:38-0500 Body hukmvv181 cmEharmony Emerson MD Work Phone: [facility] HospitalTshygwbenf29-99-5938 14:38-0500Body mass index (BMI) [Ratio]26.06 kg/z2PcgfzvStanley Emerson MD Work Phone: [facility] HospitalWixxxenojc16-66-2979 14:38-0500Body slvitb16.08 kgStanley Emerson MD Work Phone: [facility] HospitalMbppgvidoi00-00-0537 14:38-0500Diastolic blood ylgugpva55 mm[Hg]Stanley Emerson MD Work Phone: [place] [address]Mymrhayreh41-55-9267 14:38-0500Heart rate77 /min Stanley Emerson MD Work Phone: [facility] HospitalGngsxfxukk54-83-8649 14:38-6309WyJ7% (BldA) [Mass fraction]97 %Stanley Emerson MD Work Phone: [facility] HospitalCmqnebtkuv90-11-5685 14:38-0500Systolic blood mhrgkguo972 mm[Hg]Stanley Emerson MD Work Phone: [facility] HospitalCamljznfrs14-82-2291 11:14-0500Blood Pressure LocationIltamara SAMUELS [facility] [place] 240821-12-2024 11:14-0500Diastolic blood avqfknvk34 mm[Hg]Katia SAMUELS [facility] [place] 240821-12-2024 11:14-0500Heart rate79 /minKatia SAMUELS [facility] [place] 024131-12-2024 11:14-0500Systolic blood aymziize545 mm[Hg]Katia SAMUELS [facility] [place] 240820-24-2024 11:18-0400Body otzajt877 cmEdludy Emerson MD Work Phone: [phone] HospitalAqmnbexoao66-30-8791 11:18-0400Body mass index (BMI) [Ratio]28.63 kg/f6RfhentStanley Emerson MD Work Phone: [phone] HospitalHunluepowe07-66-2676 11:18-0400Body .15 kgStanley Emerson MD Work Phone: [facility] HospitalDglrizvktp29-61-4004 11:18-0400Heart rate82 /min Stanley Emerson MD Work Phone: [facility] HospitalClozysmitn80-33-6884 11:18-7690RjN6% (BldA) [Mass fraction]97 %Stanley Emerson MD Work Phone: [facility] HospitalBuxlpnouom38-83-0083 12:45-0400Body yrlhes715.96 cmMD Stanley Emerson Work Phone: 1(840)332-[address] [place], [place] 7206910-14-2024 12:45-0400 Body mass index (BMI) [Ratio]25.6 kg/m2MD Stanley Emerson Work Phone: 1(027)[address] [place], [place] 4098210-14-2024 12:45-0400 Body jxdcxlefvyi91.3 [degF]MD Stanley Emerson Work Phone: 1(655)[address]10-14-2024 12:45-0400 Body ntgarw24.43 kgMD Stanley Emerson Work Phone: 1(010)[address]10-14-2024 12:45-0400 Diastolic blood ctnxsdqi60 mm[Hg]MD Stanley Emerson Work Phone: 1(468)[address] [place], [place] 4098210-14-2024 12:45-0400 Heart rate92 /minMD ludy Emerson Work Phone: 1(422)[address] [place], [place] 4098210-14-2024 12:45-0400 SaO2% (BldA) [Mass fraction]99 %MD Stanley Emerson Work Phone: 1(848)[address]10-14-2024 12:45-0400 Systolic blood gibabgvi653 mm[Hg]MD Stanley Emerson Work Phone: 1(451)[address]10-01-2024 15:19-0400 Body [facility]Leanna [facility]10-01-2024 15:19-0400Body mass index (BMI) [Ratio]26.32 kg/e0SxswcnL[facility] [place]10-01-2024 15:19-0400Body jlykal79.99 [facility]Ma[facility] 15:19-0400Diastolic blood wurwpisi57 mm[Hg][facility]10-01-2024 15:19-0400 Heart rate85 /minSandraanna [facility]10-01-2024 15:19-0400Systolic blood doyceekc333 mm[Hg][facility]09-24-2024 11:52-0400Body byhicz678 cmEdludy Emerson MD Work Phone: [facility] HospitalHnufinufnj31-07-6377 11:52-0400Body mass index (BMI) [Ratio]28.63 kg/q3EidbaqStanley Emerson MD Work Phone: [facility] HospitalQwzhajgooo48-68-5903 11:52-0400Body tmyyvb896.15 kgStanley Emerson MD Work Phone: [facility] HospitalQrknqtuige23-76-3890 09:13-0400Body hmczni001 cm Teo Al MD Work Phone: 1(713)[address]09-17-2024 09:13-0400 Body mass index (BMI) [Ratio]26.32 kg/s2GiyuieTeo Al MD Work Phone: 1(056)[address]09-17-2024 09:13-0400 Body uxprrq34.99 kgTeo Al MD Work Phone: 1(393)[address]09-17-2024 09:13-0400 Diastolic blood wweqwsoo74 mm[Hg]Teo Al MD Work Phone: 1(773)557-[address] [place], [place] 2936509-17-2024 09:13-0400 Heart rate79 /minTeo Al MD Work Phone: 1(334)741-[address] [place], [place] 2936509-17-2024 09:13-0400 Systolic blood uufllfwq604 mm[Hg]Teo Al MD Work Phone: 4(798)252-[address] [place], [place] 2936509-11-2024 11:48-0400 Body uzmkhp810.96 cmMD Stanley Emerson Work Phone: [facility]09-11-2024 11:48-0400 Body mass index (BMI) [Ratio]28.2 kg/m2MD Stanley Emerson Work Phone: 1(412)[address] [place], [place] 4098209-11-2024 11:48-0400 Body eemeqedpbnq65.1 [degF]MD Stanley Emerson Work Phone: 1(085)[address] [place], [place] 4098209-11-2024 11:48-0400 Body gfsxgy71.79 kgMD Stanley Emerson Work Phone: 1(198)[address] [place], [place] 4098209-11-2024 11:48-0400 Diastolic blood xkuktsom13 mm[Hg]MD Stanley Emerson Work Phone: 1(423)[address] [place], [place] 4098209-11-2024 11:48-0400 Heart rate76 /minMD Stanley Emerson Work Phone: 1(850)[address] [place], [place] 4098209-11-2024 11:48-0400 Respiratory rate18 /minMD Stanley Emerson Work Phone: 1(991)[address] [place], [place] 4098209-11-2024 11:48-0400 SaO2% (BldA) [Mass fraction]96 %MD Stanley Emerson Work Phone: 1(765)[address] [place], [place] 4098209-11-2024 11:48-0400 Systolic blood mm[Hg]MD Stanley Emerson Work Phone: 1(359)[address] [place], [place] 4098208-30-2024 15:00-0400 Body hvvdiu408.96 cmMD Stanley Emerson Work Phone: 1(399)[address] [place], [place] 4098208-30-2024 11:19-0400 Diastolic blood ymqmxaht35 mm[Hg]MD Stanley Emerson Work Phone: 1(368)[address] [place], [place] 4098208-30-2024 11:19-0400 Heart rate64 /minMD Stanley Emerson Work Phone: 1(682)[address] [place], [place] 4098208-30-2024 11:19-0400 Systolic blood jgncawkl38 mm[Hg]MD Stanley Emerson Work Phone: 1(899)[address] [place], [place] 4098208-30-2024 11:13-0400 Respiratory rate20 /minMD Stanley Emerson Work Phone: 1(931)[address] [place], [place] 4098208-30-2024 11:13-0400 SaO2% (BldA) [Mass fraction]96 %MD Stanley Emerson Work Phone: 1(513)[address] [place], [place] 4098208-30-2024 04:44-0400 Body pzgqer03.6 kgMD Peteludy Idania Work Phone: 1(120)[address] [place], [place] 4098208-29-2024 23:41-0400 Body fwpcdpoyccl36.2 [degF]MD Stanley Emerson Work Phone: 1(110)[address] [place], [place] 4098208-26-2024 10:00-0400 Inhaled oxygen flow rate2 L/minMD Peteludy Idania Work Phone: 1(607)[address] [place], [place] 4098208-21-2024 09:35-0400 Diastolic blood qmhjnbyp76 mm[Hg]MD Stanley Emerson Work Phone: 1(955)[address] [place], [place] 4098208-21-2024 09:35-0400 Heart rate65 /minMD ludy Idania Work Phone: 1(696)[address] [place], [place] 4098208-21-2024 09:35-0400 Respiratory rate16 /minMD Stanley Emerson Work Phone: 1(908)[address] [place], [place] 4098208-21-2024 09:35-0400 SaO2% (BldA) [Mass fraction]97 %MD Stanley Emerson Work Phone: 1(373)[address] [place], [place] 4098208-21-2024 09:35-0400 Systolic blood rhgdbfub325 mm[Hg]MD Stanley Emerson Work Phone: 1(846)[address] [place], [place] 4098208-21-2024 07:41-0400 Body vbtitd816.96 cmMD Stanley Emerson Work Phone: 1(121)[address] [place], [place] 4098208-21-2024 07:41-0400 Body vklpda976.32 kgMD Stanley Emerson Work Phone: 1(628)[address] [place], [place] 4098205-29-2024 10:57-0400 Body qcaqpc085.96 cmMD Peteludy Idania Work Phone: 1(064)[address] [place], [place] 4098205-29-2024 10:57-0400 Body mass index (BMI) [Ratio]28 kg/m2MD Peteludy Idania Work Phone: 1(614)[address] [place], [place] 4098205-29-2024 10:57-0400 Body .8 [degF]MD Stanley Emerson Work Phone: 1(579)[address] [place], [place] 4098205-29-2024 10:57-0400 Body .1 kgMD Satnley Idania Work Phone: 1(332)[address] [place], [place] 4098205-29-2024 10:57-0400 Diastolic blood pejyxkem39 mm[Hg]MD Stanley Emerson Work Phone: 1(906)[address] [place], [place] 4098205-29-2024 10:57-0400 Heart rate71 /minMD Peteludy Idania Work Phone: 1(689)[address] [place], [place] 4098205-29-2024 10:57-0400 Respiratory rate18 /minMD Peteludy Idania Work Phone: 1(542)[address] [place], [place] 4098205-29-2024 10:57-0400 SaO2% (BldA) [Mass fraction]98 %MD Stanley Emerson Work Phone: 1(980)[address] [place], [place] 4098205-29-2024 10:57-0400 Systolic blood cuangkat516 mm[Hg]MD Stanley Emerson Work Phone: 1(965)[address] [place], [place] 4098204-25-2024 10:47-0400 Body dvsekv706.96 cmMD Stanley Emerson Work Phone: 1(273)[address] [place], [place] 4098204-25-2024 10:47-0400 Body mass index (BMI) [Ratio]28.6 kg/m2MD Peteludy Smithchery Work Phone: 1(007)[address] [place], [place] 4098204-25-2024 10:47-0400 Body gmpqusiohpn99.8 [degF]MD Stanley Emerson Work Phone: [facility]04-25-2024 10:47-0400 Body crzxeb028.15 kgMD Stanley Emerson Work Phone: 1(882)963-[address] [place], [place] 4763004-25-2024 10:47-0400 Diastolic blood iqddacru31 mm[Hg]MD Stanley Emerson Work Phone: [facility]04-25-2024 10:47-0400 Heart rate64 /minMD Stanley Emerson Work Phone: 1(858)603-[address] [place], [place] 4763004-25-2024 10:47-0400 Respiratory rate16 /minMD Stanley Emerson Work Phone: 1(054)967-[address] [place], [place] 7206904-25-2024 10:47-0400 SaO2% (BldA) [Mass fraction]98 %MD Stanley Emerson Work Phone: 1(441)396-[address] [place], [place] 4763004-25-2024 10:47-0400 Systolic blood ryfslzou744 mm[Hg]MD Stanley Emerson Work Phone: [facility]02-05-2024 14:17-0500 Blood Pressure LocationPatrick [employer] [facility]02-05-2024 14:17-0500Diastolic blood ulsneugs77 mm[Hg]Katia [employer] [facility]02-05-2024 14:17-0500Heart rate70 /minPatrick SAMUELS [facility]02-05-2024 14:17-0500Respiratory rate16 /minPatrick SAMUELS [facility]02-05-2024 14:17-0500Systolic blood mm[Hg]Katia [employer] [facility] Askkdbby86-73-2583 14:00-0500Body shnvve595.96 cmAziabigail Griffin Other [employer] Other [id number] 14:00-0500Body mass index (BMI) [Ratio] 28.73 kg/m2Celia Francesaidee Other [employer] Other 11-21-2023 14:00-0500Body ajfjgwdnzyh44.8 [degF]Celia Starkscatherineaidee Other [employer] Other 208850-54-5156 14:00-0500Body usqwoq383.52 kgCelia Francesaidee Other [employer] Other 11-21-2023 14:00-0500Diastolic blood mpyzkvxj508 mm[Hg]Celia Griffin Other [employer] Other 11-21-2023 14:00-0500Respiratory rate18 /minCelia Starkscatherineaidee Other [employer] Other 11-21-2023 14:00-6476OnB2% (BldA) [Mass fraction]96 % Celia Terezasaurav Other [employer] Other 11-21-2023 14:00-0500Systolic blood amewwbji533 mm[Hg] Azcelestino Francess Other [employer] Other [id number] 13:38-0400Blood Pressure LocationPaCharles [facility] [place] 024130-17-2023 13:38-0400Diastolic blood jjpfgryk415 mm[Hg]Katia SAMUELS [facility]-17-2023 13:38-0400Heart rate72 /minPatrick ABRIL [facility] [place] 024130-17-2023 13:38-0400Systolic blood psheneze385 mm[Hg]Katia SAMUELS [facility]08-30-2023 09:57-0400Body hxzbar282.96 cmEharmony Emerson Work Phone: 1(426) [phone]-Mntpp [facility] 250 DO Work Phone: 1(427) 632-859608-30-2023 09:57-0400Body mass index (BMI) [Ratio] 27.35 kg/n3BxmbcqStanley Emerson Work Phone: 1(838) [phone]-Wetzm [facility] 250 DO Work Phone: 1(226) 285-823108-30-2023 09:57-0400Body surface area Derived from formula2.23 y4QizkhdStanley Emerson Work Phone: 1(452) [phone]-Pyxhr [facility] 250 DO Work Phone: 1(176) 653-299708-30-2023 09:57-0400Body yjsxhq13.62 kgStanley Emerson Work Phone: 1(554) [phone]-Zeuaj [facility] 250 DO Work Phone: 1(819) 158-807308-30-2023 09:57-0400Diastolic blood icjxaqco42 mm[Hg] Stanley Emerson Work Phone: 1(638) [phone]-Bxilq [facility] 250 DO Work Phone: 1(254) 908-881408-30-2023 09:57-0400Heart rate72 /minEharmony Emerson Work Phone: 1(615) [phone]-Gjzue [facility] 250 DO Work Phone: 1(387) 738-398408-30-2023 09:57-0400Systolic blood kkazxgzu609 mm[Hg] Stanley Emerson Work Phone: 1(856) [phone]-Gbmle [facility] 250 DO Work Phone: 1(590) 649-511403-29-2023 14:30-0400Body .96 cmCarlene Kasper Other [employer] Other 03-29-2023 14:30-0400Body mass index (BMI) [Ratio] 26.32 kg/n1LkeshhCarlene Kasper Other [employer] Other 03-29-2023 14:30-0400Body ybnnblrwrcu27.8 [degF]Carlene Ranjith Other [employer] Other 03-29-2023 14:30-0400Body zirmlh41.99 kgSeanemiliana Mezatrey Other [employer] Other 03-29-2023 14:30-0400Diastolic blood iiggwywl22 mm[Hg] Carlene Kasper Other [employer] Other 03-29-2023 14:30-5362NiR9% (BldA) [Mass fraction]96 % Carlene Kasper Other [employer] Other 03-29-2023 14:30-0400Systolic blood aafrhppx200 mm[Hg] Carlene Kasper Other [employer] Other 03-08-2023 07:25-0500Blood Pressure LocationPakettering health [facility] SAM[facility]ELS [facility]03-08-2023 07:25-0500Diastolic blood jryxzkhx67 mm[Hg]Katia SAMUELS [facility]03-08-2023 07:25-0500Heart rate70 /minPaPrim’Vision [facility]03-08-2023 07:25-0500Respiratory rate16 /minPaPrim’Vision [facility]03-08-2023 07:25-0500Systolic blood leeeowvi042 mm[Hg]Katia SAMUELS [facility]03-02-2023 09:45-0500Body mvewvg873.96 cmMattlucy Valentine Other [facility] [facility] [employer] Other 03-02-2023 09:45-0500Body mass index (BMI) [Ratio] 26.32 kg/u0Yaieeubkaren Valentine Other [facility] [employer] Other 03-02-2023 09:45-0500Body qnwpgjajlcp59.2 [degF] Margarito Valentine Other [facility] [facility] [employer] Other 03-02-2023 09:45-0500Body rvfnig57.99 kgMattlucy Valentine Other [employer] Other 03-02-2023 09:45-0500Diastolic blood bcxxyjfr95 mm[Hg] Margarito Valentine Other [facility] [employer] Other 03-02-2023 09:45-1287RqG1% (BldA) [Mass fraction]97 % Margarito Valentine Other noh [employer] Other 03-02-2023 09:45-0500Systolic blood pkersdqq636 mm[Hg] Margarito Valentine Other [place] [employer] Other 02-08-2023 07:34-0500Body bykircarnax64.9 [degF]MD Stanley Emerson Work Phone: 1(930)159-[address] [place], [place] 7206902-08-2023 07:34-0500 Diastolic blood ovzwzidj05 mm[Hg]MD Stanley Emerson Work Phone: 1(247)928-[address] [place], [place] 7206902-08-2023 07:34-0500 Heart rate87 /minMD Stanley Emerson Work Phone: 1(085)[address] [place], [place] 4098202-08-2023 07:34-0500 Respiratory rate18 /minMD Stanley Emerson Work Phone: 1(635)[address] [place], [place] 4098202-08-2023 07:34-0500 SaO2% (BldA) [Mass fraction]94 %MD Stanley Emerson Work Phone: 1(331)396-[address] [place], [place] 7206902-08-2023 07:34-0500 Systolic blood xkgqxodm519 mm[Hg]MD Stanley Emreson Work Phone: 1(388)748-[address] [place], [place] 7206902-08-2023 05:46-0500 Body bwwbut00 kgMD Stanley Emerson Work Phone: 1(468)[facility] [place], [place] 7206902-07-2023 16:27-0500 Inhaled oxygen flow rate6 L/minMD Stanley Emerson Work Phone: 1(162)[facility] [place], [place] 7206902-07-2023 10:06-0500 Body loqism066.42 cmMD Stanley Emerson Work Phone: 1(970)[address] [place], [place] 4098202-07-2023 10:06-0500 Body mass index (BMI) [Ratio]27.3 kg/m2MD Stanley Emerson Work Phone: 1(023)214-[address] [place], [place] 7206901-25-2023 10:00-0500 Body wtlewq676.96 cmMakaren Valentine Other [place] [employer] Other 01-25-2023 10:00-0500Body mass index (BMI) [Ratio] 26.32 kg/k7EfluqqvMargarito Valentine Other [place] [employer] Other 01-25-2023 10:00-0500Body getvwsjvcxc99.8 [degF] Margarito Valentine Other [place] [employer] Other 01-25-2023 10:00-0500Body zacmuv94.99 kgMattlucy Valentine Other [place] [employer] Other 01-25-2023 10:00-0500Diastolic blood apuwgfjy40 mm[Hg] Margarito Valentine Other [place] [employer] Other 01-25-2023 10:00-5321QjD4% (BldA) [Mass fraction]95 % Margarito Valentine Other [place] [employer] Other 01-25-2023 10:00-0500Systolic blood lykniqom301 mm[Hg] Margarito Valentine Other [place] [employer] Other 01-18-2023 13:07-0500Body yvemnf609.96 cmMD Stanley Hemeyer Work Phone: [facility]01-18-2023 13:07-0500 Body .44 kgMD Edludy Hemeyer Work Phone: [facility]01-12-2023 12:00-0500 Body osyiax901.96 cmMattlucy Valentine Other [facility] Other 01-12-2023 12:00-0500Body mass index (BMI) [Ratio] 26.32 kg/k1GtgxltlMargarito Valentine Other [facility] Other 01-12-2023 12:00-0500Body bfqljoelshg92.2 [degF] Margarito Valentine Other [facility] Other 01-12-2023 12:00-0500Body .99 kgMattlucy Valentine Other [facility] Other 01-12-2023 12:00-0500Diastolic blood ndwltycs49 mm[Hg] Margarito Valentine Other [facility] Other 01-12-2023 12:00-7274MfP8% (BldA) [Mass fraction]98 % Margarito Valentine Other [facility] Other 01-12-2023 12:00-0500Systolic blood gymqurbg616 mm[Hg] Margarito Valentine Other [facility] Other 01-10-2023 12:00-0500Body pwsdju065.96 Magen Griffin Other [facility] Other 01-10-2023 12:00-0500Body mass index (BMI) [Ratio] 26.42 kg/m2Celia Griffin Other [place] [employer] Other 01-10-2023 12:00-0500Body amaltlkwgyd19.6 [degF]Celia Griffin Other [place] [employer] Other 01-10-2023 12:00-0500Body .35 kgCelia Griffin Other [place] [employer] Other 01-10-2023 12:00-0500Diastolic blood dgtokwbf31 mm[Hg] Celia Griffin Other [place] [employer] Other 01-10-2023 12:00-0500Respiratory rate20 /minCelia Griffin Other [place] [employer] Other 01-10-2023 12:00-6741WtA0% (BldA) [Mass fraction]98 % Celia Griffin Other [place] [employer] Other 01-10-2023 12:00-0500Systolic blood mm[Hg] Celia Griffin Other [place] [employer] Other 01-09-2023 15:38-0500Body .96 cmEdludy Emerson Work Phone: [phone]-Clrvq [employer] 250 DO Work Phone: 1(530) 616-596301-09-2023 15:38-0500Body mass index (BMI) [Ratio] 26.45 kg/l0OkkdqnStanley Emerson Work Phone: [phone]-Lfmzv [employer] 250 DO Work Phone: 1(840) 384-388001-09-2023 15:38-0500Body surface area Derived from formula2.2 m9HqedoiStanley Emerson Work Phone: [phone]-Xpzfy [employer] 250 DO Work Phone: 1(608) 550-309301-09-2023 15:38-0500Body oznicc03.44 kgStanley Emerson Work Phone: 1([phone]) [phone]-Uezre [facility] 250 DO Work Phone: 1(331) [phone] 15:38-0500Diastolic blood mgfbqbik97 mm[Hg] Stanley Emerson Work Phone: 1([phone]) [phone]-Rlohz [facility] 250 DO Work Phone: 1(482) [phone] 15:38-0500Heart rate71 /minEdludy Emerson Work Phone: 1([phone]) [phone]-Buofx [facility] 250 DO Work Phone: 1(867) 274-194001-09-2023 15:38-0500Systolic blood tsnagitg181 mm[Hg] Stanley Emerson Work Phone: 1([phone]-Uayrb [facility] 250 DO Work Phone: 1(393) 398-514512-28-2022 11:53-0500Body fufjmjxjmgs36.8 [degF]MD Stanley Emerson Work Phone: 1([phone])671-[address] [place], [place] 7206912-28-2022 11:53-0500 Diastolic blood mm[Hg]MD Stanley Emerson Work Phone: 1(779)894-[address] [place], [place] 7206912-28-2022 11:53-0500 Heart rate78 /minMD Stanley Emerson Work Phone: 1(804)078-[address] [place], [place] 7206912-28-2022 11:53-0500 Respiratory rate16 /minMD Stanley Emerson Work Phone: 1([phone])596-[address] [place], [place] 7206912-28-2022 11:53-0500 SaO2% (BldA) [Mass fraction]97 %MD Stanley Emerson Work Phone: 1([phone])241-[address] [place], [place] 7206912-28-2022 11:53-0500 Systolic blood urjhpjzh024 mm[Hg]MD Stanley Emerson Work Phone: 1(341)215-[address] [place], [place] 7206912-28-2022 06:02-0500 Body uyxwug32.8 kgMD Stanley Emerson Work Phone: [facility]12-27-2022 11:48-0500 63 1Eharmony Emerson Work Phone: [phone]-Vkois [facility] 250 DO Work Phone: Comment on above:[id number] 12:08-0500Body kozbia141.96 cmMD Stanley Emerson Work Phone: [facility] Encounters Encounter DateEncounter TypeCare ProviderFacilityStart: 03-31-2025 End: 74-51-5934pipzggbxsrCkeuzs X OrzechFacility:FTMCStart: 03-31-2025 End: 30-19-2590vpjmwlkztkZgolbn X OrzechFacility:EU [place]vueStart: 03-31-2025 End: 97-50-3737Dyicppt encounter procedureAurora X Orzech [facility] start: 03-29-2025 End: 85-81-8312Jiciww outpatient visit 25 minutesTeo Al MD Work Phone: [facility] HospitalComment on above:Paroxysmal atrial fibrillation (Multi); High risk medication use; Cardiomyopathy, ischemic; Coronary artery disease involving [place] coronary artery of [place] heart without angina pectoris; S/P PTCA (percutaneous transluminal coronary angioplasty); Essential hypertension; Dyslipidemia; Stage 3b chronic kidney disease (Multi); Transient cerebral ischemia, unspecified type; Former smoker; Body mass index (BMI) 25.0-25.9, adult; HyperthyroidismStart: 03-29-2025 End: 07-92-3642ealjpqhvkgYUJXTF M IBRAHIMAccess [facility] AmbulatoryStart: 03-22-2025 End: 53-30-5414Dbofbapoa Result EncounterGeneric External Data ProviderNOMS External Department UnsolicitedStart: 03-22-2025 End: 61-60-1662Dcokyovno Result EncounterGeneric External Data ProviderNOMS External Department UnsolicitedStart: 03-18-2025 End: 87-58-4561Kzqjylyzd Result EncounterGeneric External Data ProviderNOMS External Department UnsolicitedStart: 03-18-2025 End: 27-79-1755Byskgatxn Result EncounterGeneric External Data ProviderNOMS External Department UnsolicitedStart: 03-10-2025 End: 43-04-8991xpgvvgusbtSziwaa X OrzechFacility:EU evueStart: 03-10-2025 End: 35-61-8374Gdmlmqr encounter procedureAurora X Orzech [facility] start: 03-09-2025 End: 59-25-8039yqxduqlgsfTjqeut J Hemeyer MD Work Phone: [facility] Work Phone: Start: 03-09-2025 End: 23-55-8684Paljzun encounter procedureCelia Griffin MD-[facility] Work Phone: Start: 02-28-2025 End: 47-13-5683Hfwnqlyeq Result EncounterGeneric External Data ProviderNOMS External Department UnsolicitedStart: 02-28-2025 End: 53-32-0610Ddbsipvgi Result EncounterGeneric External Data ProviderNOMS External Department UnsolicitedStart: 49-23-0424Lmh-patient / Non-visitCelia Griffin MD-[facility] Work Phone: Start: 02-10-2025 End: 73-03-2748ylxibpawwfVjfpyh X OrzechFacility:EU ueStart: 02-10-2025 End: 58-99-6921Qhdxowb encounter procedureAurora X Orzech [facility] start: 02-02-2025 End: 35-01-8824Hfwdqgqnv Result EncounterGeneric External Data ProviderNOMS External Department UnsolicitedStart: 02-02-2025 End: 64-79-7809Zngndnbvl Result EncounterGeneric External Data ProviderNOMS External Department UnsolicitedStart: 14-49-5155sgcizmwyopOeibis Tanna Facility:EU [place]Start: 01-12-2025 End: 25-70-9711jjaeoppxjaNtiqia TannaFacility:EU [place]vueStart: 01-12-2025 End: 17-12-6771Byyljmm encounter procedureEboni Anderson [facility] start: 12-14-2024 End: 69-91-9259umlzvntnkrDxswsi TannaFacility:EU BellevueStart: 12-14-2024 End: 58-14-4235Hhexfba encounter procedureEboni Anderson [facility] start: 11-16-2024 End: 12-21-0694bpfwvnkctzRgnwvaz R WATERSFacility:FTMCStart: 11-16-2024 End: 00-69-1254Zpz Drop offPatrick R SAMUELS [facility] Start: 11-16-2024 End: 05-46-4351yonipjqdzgYqcjlms R WATERSFacility:EU [place]kyStart: 11-16-2024 End: 63-40-8147Mkhxkma encounter procedurePatrick R SAMUELS [facility] Start: 11-09-2024 End: 52-80-8382Wirutx flowsEdward Emerson MD Work Phone: NOMS CI FM 100Start: 11-09-2024 End: 59-78-5807Wwpeaz flowsEdward Emerson MD Work Phone: [facility] CI FM 100Start: 11-09-2024 End: 75-28-0537Juhxzi outpatient visit 25 minutesEdludy Emerson MD Work Phone: NOMS CI FM 100Comment on above:Venous insufficiency of both lower extremities (Primary Dx); Venous stasis dermatitis of right lower extremity; 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 disturbance, psychotic disturbance, mood disturbance, or anxiety (HCC)Start: 11-09-2024 End: 90-39-9340ibhkxijcgxATZMQY J HEMEYERNot AvailableStart: 11-03-2024 End: 51-18-9335pfaxbcvnqiDslwhm J Hemeyer MD Work Phone: [facility] Work Phone: Start: 11-03-2024 End: 26-42-1717Alqinyp encounter procedureEdludy Emerson MD Work Phone: [facility] Work Phone: Start: 11-02-2024 End: 51-81-5148ltbisfapniIR-Quynh OMALLEYFacility:EU BellevueStart: 11-02-2024 End: 16-93-5405Gawhvuy encounter procedureHEATHER OMALLEY [facility] start: 10-27-2024 End: 51-87-7621Huqnfcdgt Result EncounterGeneric External Data ProviderNOMS External Department UnsolicitedStart: 10-27-2024 End: 89-26-3786Dstqeagqr Result EncounterGeneric External Data ProviderNOMS External Department UnsolicitedStart: 63-28-2521Xfs-patient / Non-visitEdludy Emerson MD Work Phone: [facility] Work Phone: Start: 10-14-2024 End: 88-81-2808Ainqwnpnqorp care manage srvc 14 day dischargeEdluyd Emerson MD Work Phone: NOMS CI FM 100Comment on above:Pneumonia of left lower lobe due to infectious organism; Encounter for examination following treatment at hospital; Lower extremity edema; Delirium due to another medical conditionStart: 10-14-2024 End: 84-75-3563tqlltpmycnFCPOTS J HEMEYERNot AvailableStart: 10-13-2024 End: 23-54-8935Jgpnzp OnlyStanley Emerson MD Work Phone: NOMS CI 100Comment on above:Peripheral vascular disease (CMS/HCC) (Primary Dx); Presence of stent in arteryStart: 59-74-1760Exlzosomnsj arrhythmiaTeo Al MD Work Phone: [facility] Work Phone: Start: 84-60-8387Lsk-patient / Non-visitEdludy Emerson MD Work Phone: [facility] Work Phone: Start: 73-51-6805thrrmuobbuSATNPaulding County Hospitaltart: 99-20-4823Nwufhlsnk for preprocedural cardiovascular examinationTERENCEGrant Hospital Start: 10-11-2024 End: 62-24-4357Mkyvktuvn to same day surgery Cyndi Emerson MD Work Phone: [facility] Work Phone: Start: 10-11-2024 End: 49-04-3804nithqpkowxPccuiv J HemeyerFacility:[facility] Hospitaltart: 10-08-2024 End: 66-06-2567PvliyiwseoaorpkOiaz J Quan MD Work Phone: [facility] Work Phone: Start: 10-08-2024 End: 24-65-1508Pvjbjp consultation new/estab patient 78 Tevin Montana MD Work Phone: [facility] HospitalComment on above: Cardiomyopathy, ischemic (Primary Dx); Encounter [...] Pre-operative cardiovascular examination, supraventricular arrhythmiaStart: 10-08-2024 End: 89-42-8417Oldupnr encounter statusRuby Montana MD Work Phone: [facility] Work Phone: Start: 10-08-2024 End: 24-48-8628Vtiwxlhwkafjwuym arrhythmiaRuby Montana MD Work Phone: [facility] Work Phone: Start: 10-08-2024 End: 05-42-4937Ybfenfeieds arrhythmiaRuby Montana MD Work Phone: [facility] Work Phone: Start: 10-08-2024 End: 65-37-5276bgjvczrcaePRGDFreedmen's Hospital AmbulatoryStart: 10-08-2024 End: 98-56-2011Wqkkegtdd for preprocedural cardiovascular examinationHospital for Sick Children AmbulatoryStart: 10-05-2024 End: 61-68-4005vobwaldqgqCybcjhk R WATERSFacility:EU [place]kyStart: 10-05-2024 End: 62-92-4427Csaafka encounter procedureKatia SAMUELS [facility] Start: 10-04-2024 End: 08-39-5988Fhyxaihmiu and management of inpatientPuneet Hubert CASILLAS Work Phone: [facility] Vascular LabComment on above: ArrivedStart: 10-02-2024 End: 64-45-0698Wgefpfzov Result EncounterGeneric External Data ProviderNOMS External Department UnsolicitedStart: 10-02-2024 End: 44-52-6937Tnrtegcpr Result EncounterGeneric External Data ProviderNOMS External Department UnsolicitedStart: 10-02-2024 End: 44-96-9270Apwvujcmlb and management of inpatientPuneet Hubert CASILLAS Work Phone: [facility] Med SurgComment on above:Lower extremity edema (Primary Dx); Delirium due to another medical condition; Cognitive and behavioral changesStart: 10-01-2024 End: 37-65-3327fmwsqjdoncKyongqu [facility] Work Phone: Start: 10-01-2024 End: 40-05-6078Wasduzyg Elmira Bo MD Work Phone: [facility] Path Spec [place] HospStart: 09-72-1251vjsuedzqzhTjolsv J HemeyerFacility:[facility] Hospitaltart: 10-01-2024 End: 26-15-3614Jgnmcsxgg Result EncounterGeneric External Data ProviderNOMS External Department UnsolicitedStart: 10-01-2024 End: 34-18-0709Xuiokzvnw Result EncounterGeneric External Data ProviderNOMS External Department UnsolicitedStart: 09-28-2024 End: 49-69-8890vpifjtbrwsCvebms A [facility] Work Phone: Start: 09-28-2024 End: 32-63-2394Lksfoiul Elmira Bo MD Work Phone: [facility] Spec [place] HospStart: 09-28-2024 End: 99-14-7519Enlhudqsz Result EncounterGeneric External Data ProviderNOMS External Department UnsolicitedStart: 09-28-2024 End: 21-49-4640Cruzfrkmd Result EncounterGeneric External Data ProviderNOMS External Department UnsolicitedStart: 09-23-2024 End: 72-22-0859Wsuajck encounter procedureGr[facility]ville [facility] Work Phone: Start: 09-23-2024 End: 10-79-6181nhmsmjkaesYpspuh J HemeyerDayton Osteopathic Hospital Work Phone: Start: 09-21-2024 End: 52-45-4319Dsksut outpatient visit 25 minutesStanley Emerson MD Work Phone: noMS CI FM 100Comment on above: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 disturbance, psychotic disturbance, mood disturbance, or anxiety (CMS/HCC); Hallucinations; Need for prophylaxis against urinary tract infection; Indwelling urinary catheter present; Former smoker; Polypharmacy; OverweightStart: 09-21-2024 End: 53-72-2270Aokrnbangelic Emerson MD Work Phone: noms CI FM 100Start: 09-21-2024 End: 54-50-7913Vcyareangelic Emerson MD Work Phone: noms CI FM 100Start: 09-21-2024 End: 74-80-2674rehxmdajajXQHLEJ J HEMEYERLakeland Regional Hospital AvailableStart: 09-10-2024 End: 86-24-0647Mnrhly outpatient visit 25 minutesTeo Al MD Work Phone: [facility]Comment on above:Cardiomyopathy, ischemic; Coronary artery disease involving [place] coronary artery of [place] heart without angina pectoris; S/P PTCA (percutaneous transluminal coronary angioplasty); ST elevation myocardial infarction (STEMI), unspecified artery (Multi); Paroxysmal atrial fibrillation (Multi); High risk medication use; Essential hypertension; Abdominal aortic aneurysm (AAA) greater than 5.5 cm in diameter in male; Dyslipidemia; Stage 3a chronic kidney disease (Multi); Former smoker; BMI 26.0-26.9,adultStart: 09-10-2024 End: 37-22-0283napiyobzozPCBQYP M [facility] AmbulatoryStart: 09-09-2024 End: 73-17-8162nvtthrpsrxPgyyha J GaleaFacility:EU [place]vueStart: 09-02-2024 End: 36-44-9148Jjhjkmmtg Result EncounterGeneric External Data ProviderNOMS External Department UnsolicitedStart: 09-02-2024 End: 61-48-4111Kaerbfbvj Result EncounterGeneric External Data ProviderNOMS External Department UnsolicitedStart: 08-23-2024 End: 40-74-5281Vyejmmqfx Result EncounterGeneric External Data ProviderNOMS External Department UnsolicitedStart: 08-23-2024 End: 40-32-4680Xgcweajxt Result EncounterGeneric External Data ProviderNOMS External Department UnsolicitedStart: 08-12-2024 End: 79-50-3368cbjcbhjoaqYH-C HEATHER OMALLEYFacility:EU [place]vueStart: 08-11-2024 End: 80-85-4842tylqodtkipPwpgyj J Hemeyer MD Work Phone: [facility] Work Phone: Start: 08-11-2024 End: 40-23-2568Wjnapju encounter procedureEdludy Emerson MD Work Phone: [facility] Work Phone: Start: 08-06-2024 End: 02-41-1009Jxrsxggofa hospital visit by Hong Alfaro Echo/[facility] 2[facility] on above:ST elevation myocardial infarction (STEMI), unspecified artery (Multi); Cardiomyopathy, ischemic; Coronary artery disease involving [place] coronary artery of [place] heart without angina pectoris; S/P PTCA (percutaneous transluminal coronary angioplasty)Start: 08-06-2024 End: 25-29-7554juywgrcefkZJMAAL M [facility] Main Campustart: 67-55-6145Age-patient / Non-visitEdludy Emerson MD Work Phone: [facility] Work Phone: Start: 07-29-2024 End: 27-30-5152nwahhwshruHymtath R WATERSFacility:FTMCStart: 07-29-2024 End: 34-40-6348bdfdssosptSitaekq R WATERSFacility:UZMA HermosillouskyStart: 07-29-2024 End: 78-26-2329Bbkoqz outpatient visit 40 minutesTeo Al MD Work Phone: [facility] on above:Cardiomyopathy, ischemic (Primary Dx); Coronary artery disease involving [place] coronary artery of [place] heart without angina pectoris; Paroxysmal atrial fibrillation (Multi); High risk medication use; S/P PTCA (percutaneous transluminal coronary angioplasty); ST elevation myocardial infarction (STEMI), unspecified artery (Multi); Infrarenal abdominal aortic aneurysm (AAA) without rupture (CMS-HCC); Essential hypertension; Dyslipidemia; Stage 3a chronic kidney disease (Multi); Transient cerebral ischemia, unspecified type; Hematuria, unspecified type; Hyperthyroidism; BMI 26.0-26.9,adult; Former smokerStart: 07-29-2024 End: 04-50-2564bnyqiptaivPVQAEP M [facility] AmbulatoryStart: 07-23-2024 End: 84-77-4252Nqzucxsgx Result EncounterGeneric External Data ProviderNOMS External Department UnsolicitedStart: 07-23-2024 End: 92-24-5108Bbipnwhud Result EncounterGeneric External Data ProviderNOMS External Department UnsolicitedStart: 07-15-2024 End: 16-03-4916pzgetobkurAX-C JENNIFER E PERRYFacility:EU BellevueStart: 07-15-2024 End: 66-93-1942Woqgbpm encounter procedureHEATHER OMALLEY [facility] start: 07-13-2024 End: 62-17-9386Uqkmbsrcu Result EncounterGeneric External Data ProviderNOMS External Department UnsolicitedStart: 07-13-2024 End: 02-54-2697Xdkelapcq Result EncounterGeneric External Data ProviderNOMS External Department UnsolicitedStart: 06-29-2024 End: 17-87-1184Yroqyuqvo Result EncounterSluh Sequeira MD Work Phone: noms External Department UnsolicitedStart: 06-29-2024 End: 19-93-1377Cgktfyqgi Result EncounterSluh Sequeira MD Work Phone: noms External Department UnsolicitedStart: 06-25-2024 End: 61-50-6770Olagovocf Result EncounterGeneric External Data ProviderNOMS External Department UnsolicitedStart: 06-25-2024 End: 01-39-3057Hqyiwnzaa Result EncounterGeneric External Data ProviderNOMS External Department UnsolicitedStart: 06-22-2024 End: 54-16-3888Caoerocrq encounterEdludy Emerson MD Work Phone: NOEV CI FM 100Start: 06-01-2024 End: 43-56-2741qigfqiggimGzidri X OrzechFacility:EU [place]kyStart: 06-01-2024 End: 23-93-2180Sfdxsab encounter procedureAurora X Orzech [facility] Start: 05-25-2024 End: 70-62-7726Isrtnwpsr Result EncounterGeneric External Data ProviderNOMS External Department UnsolicitedStart: 05-25-2024 End: 80-70-6716Jxotvrrbf Result EncounterGeneric External Data ProviderNOMS External Department UnsolicitedStart: 05-21-2024 End: 84-52-9112IniwryEktctu J Hemeyer MD Work Phone: noms S FMComment on above:Simple chronic bronchitis (CMS/HCC)Start: 05-21-2024 End: 19-59-0539Pjhdwpd encounter procedureStanley Emerson MD Work Phone: [facility] Main [place] Work Phone: Start: 05-21-2024 End: 60-09-0019Avcjpd outpatient visit 25 minutesTeo Al MD Work Phone: uh FirelandsComment on above:Paroxysmal atrial fibrillation (Multi); High risk medication use; Coronary artery disease involving [place] coronary artery of [place] heart without angina pectoris; S/P PTCA (percutaneous transluminal coronary angioplasty); ST elevation myocardial infarction (STEMI), unspecified artery (Multi); Cardiomyopathy, ischemic; Essential hypertension; Dyslipidemia; Abdominal aortic aneurysm (AAA) greater than 5.5 cm in diameter in male (CMS-HCC); Transient cerebral ischemia, unspecified type; Stage 3a chronic kidney disease (Multi); BMI 26.0-26.9,adult; Former smokerStart: 05-21-2024 End: 41-61-4405ulzxdphnxkEbgusb [facility] Jacksonvillecility:[facility] Hospitaltart: 05-13-2024 End: 67-37-0137Gskfqfn encounter procedureEdludy Emerson MD Work Phone: NOMS CI FM 100Comment on above:Encounter for Medicare annual wellness exam (Primary Dx); Advance directive discussed with patient; Encounter for screening for other disorder; Screening for alcohol problem; Former smoker; OverweightStart: 05-13-2024 End: 81-29-4588jtzgbmwjraNNHEWA J HEMEYERNot AvailableStart: 05-13-2024 End: 56-37-5930Dqaesn flowsheetStanley Emerson MD Work Phone: N[facility] CI FM 100Start: 05-13-2024 End: 78-69-2441Pcgnaw Reji Emerson MD Work Phone: [facility] CI FM 100Start: 05-10-2024 End: 51-01-6293Fqoral Reji Emerson MD Work Phone: [facility] CI FM 100Start: 05-10-2024 End: 76-14-0831Eglhgp flowsEdward Emerson MD Work Phone: [facility] CI FM 100Start: 05-10-2024 End: 88-81-0520Gemwqn outpatient visit 40 minutesEdludy Emerson MD Work Phone: NOMS CI FM 100Comment on above:Essential hypertension, benign (CMS/HCC); Hypertensive nephropathy (CMS/HCC); Stage 3a chronic kidney disease (HCC) (CMS/HCC); Microalbuminuria; Panlobular emphysema (CMS/HCC); Simple chronic bronchitis (CMS/HCC); Mixed dyslipidemia (CMS/HCC); Polypharmacy; Mixed conductive and sensorineural hearing loss of both ears; Former smoker; OverweightStart: 05-10-2024 End: 27-99-5339qbpsxelmjuDVAOGB J HEMEYERNot AvailableStart: 05-06-2024 ambulatoryAlyskhoi Rich GaleaFacility:EU [place]vueStart: 05-05-2024 End: 32-43-4163egkqzoavugDaskim Layla GaleaFacility:EU [place]kyStart: 04-28-2024 End: 37-64-6866Hkatsjqjj Result EncounterGeneric External Data ProviderNOMS External Department UnsolicitedStart: 04-28-2024 End: 67-24-5117Aojzlxugj Result EncounterGeneric External Data ProviderNOMS External Department UnsolicitedStart: 04-26-2024 End: 59-54-8434Atuoixlks Result EncounterGeneric External Data ProviderNOMS External Department UnsolicitedStart: 04-26-2024 End: 82-81-7821Kxdyrlrji Result EncounterGeneric External Data ProviderNOMS External Department UnsolicitedStart: 04-06-2024 End: 03-37-8270nojgcisxlsYaxrcmt R WATERSFacility:FTMCStart: 04-06-2024 End: 77-59-4592Cnu Drop offKatia SAMUELS [facility] Start: 04-06-2024 End: 39-37-9614pbyvmsulkyInhezmw R WATERSFacility:EU [place]kyStart: 04-06-2024 End: 66-58-5908Vbneimn encounter procedureKatia SAMUELS [facility] Start: 03-31-2024 End: 31-61-1352Ftjtedozt Result EncounterGeneric External Data ProviderNOMS External Department UnsolicitedStart: 03-31-2024 End: 49-34-4542Necxbytzc Result EncounterGeneric External Data ProviderNOMS External Department UnsolicitedStart: 03-24-2024 End: 55-47-3370Sudxeujdz Result EncounterGeneric External Data ProviderNOMS External Department UnsolicitedStart: 03-24-2024 End: 00-37-6263Xtmymreyv Result EncounterGeneric External Data ProviderNOMS External Department UnsolicitedStart: 03-23-2024 End: 45-06-5657Rzglvsdhj Result EncounterGeneric External Data ProviderNOMS External Department UnsolicitedStart: 03-23-2024 End: 15-78-4657Ttqepsktw Result EncounterGeneric External Data ProviderNOMS External Department UnsolicitedStart: 03-18-2024 End: 94-09-3477Iuvmrz flowsEdward Emerson MD Work Phone: N[facility] CI FM 100Start: 03-18-2024 End: 68-93-0978Fyzkwy flowsEdward Emerson MD Work Phone: N[facility] CI FM 100Start: 03-18-2024 End: 71-31-3632Pzugeb outpatient visit 15 minutesEdludy Emerson MD Work Phone: NOMS CI FM 100Comment on above:Pneumonia of right lower lobe due to infectious organismStart: 03-18-2024 End: 27-63-4533dljgtqjflbDUJUCC J HEMEYERNot AvailableStart: 03-08-2024 End: 20-51-8868Uxapnls encounter procedureMD Stanley Emerson Work Phone: [facility] Work Phone: Start: 03-08-2024 End: 61-24-4319ecnrtqxkqlQS Stanley Emerson Work Phone: [facility] Work Phone: Start: 03-04-2024 End: 96-50-9327Usxiezmzs Result EncounterGeneric External Data ProviderNOMS External Department UnsolicitedStart: 03-04-2024 End: 64-11-8176Pfrvnnbro Result EncounterGeneric External Data ProviderNOMS External Department UnsolicitedStart: 03-02-2024 End: 32-94-5359xvhzcssspiIufaha X OrzechFacility:EU BellevueStart: 03-02-2024 End: 28-87-9248Orfxvsx encounter procedureAurora X Orzech [facility] start: 02-24-2024 End: 97-15-1870Sqljrzvgxant / ancillary services managementKingsbrook Jewish Medical CenterComment on above:Paroxysmal atrial fibrillation (Multi)Start: 02-17-2024 End: 26-58-5673cxixzvwecuCRLHWW J HEMEYERNot AvailableStart: 02-17-2024 End: 61-85-7337Uvswcr outpatient visit 15 minutesStanley Emerson MD Work Phone: [facility] FM 100Comment on above:Pneumonia of left lower lobe due to infectious organism (Primary Dx); Simple chronic bronchitis (CMS/HCC)Start: 02-10-2024 End: 93-05-5827Qjrjrv outpatient visit 40 minutesTeo Al MD Work Phone: [facility] HospitalComment on above:Coronary artery disease involving [place] coronary artery of [place] heart without angina pectoris (Pr imary Dx); Paroxysmal atrial fibrillation (Multi); High risk medication use; S/P PTCA (percutaneous transluminal coronary angioplasty); Cardiomyopathy, ischemic; ST elevation myocardial infarction (STEMI), unspecified artery (Multi); Dyslipidemia; Stage 3a chronic kidney disease (Multi); Transient cerebral ischemia, unspecified type; BMI 26.0-26.9,adult; Former smoker; QT prolongationStart: 02-04-2024 End: 20-16-8282hfkeplrktwTW Edward J Hemeyer Work Phone: [facility] Work Phone: Start: 02-04-2024 End: 51-56-4036Mvdzcaa encounter procedureMD Stanley Emerson Work Phone: [facility] Nephrology Dominic Work Phone: Start: 01-29-2024 End: 22-24-3287smxodcrcbwHXCCCW J HEMEYERNot AvailableStart: 43-96-6503Xtz- patient / Non-visitMD Stanley Emerson Work Phone: [facility] Work Phone: Start: 55-22-4598amglbbhepeEpqpbm X OrzechFacility:EU BellevueStart: 02-82-2952Cjw-patient / Non-visitMD Edludy Emerson Work Phone: [facility] Work Phone: Start: 47-12-9308Jma-patient / Non-visitMD Edludy Emerson Work Phone: [facility] Work Phone: Start: 01-16-2024 End: 15-46-6857Nimxmwzsmh and management of inpatientMD Edludy Emerson Work Phone: [facility] Work Phone: Start: 37-25-1853Con-patient / Non-visitMD Stanley Emerson Work Phone: [facility] Work Phone: Start: 01-14-2024 End: 50-66-7193Crbrjauiw to same day surgery centerMD Stanley Emerson Work Phone: [facility] Work Phone: Start: 01-14-2024 End: 93-35-5014zwsizhgckfGR Stanley Emerson Work Phone: [facility] Work Phone: Start: 12-26-2023 End: 09-91-6824Klhrbia encounter procedureMD Edludy Emreson Work Phone: [facility]: 12-26-2023 End: 36-05-9089cpuvbwnulkZJ Stanley Emerson Work Phone: [facility] Work Phone: Start: 12-25-2023 End: 23-07-7743ohisweqtozBclnii J GaleaFacility:EU BellevueStart: 12-25-2023 End: 82-62-7988Oletvvg encounter procedureAlysha Layla Gomez [facility] start: 11-19-2023 End: 30-35-1741ktmomkfxevIUFJOG J IDANIANot AvailableStart: 11-04-2023 End: 28-08-3744Puynxzm encounter procedureAurora X Elvi [facility] start: 10-22-2023 End: 87-64-7341fcwxelebwfUN Stanley Emerson Work Phone: [facility] Work Phone: Start: 10-22-2023 End: 78-49-6304Nznxdsm encounter procedureMD Stanley Emerson Work Phone: [facility] Nephrology Work Phone: Start: 06-85-9760Per-patient / Non-visitMD Peteludy Emerson Work Phone: [facility] [employer] Work Phone: Start: 10-07-2023 End: 74-32-4876Jalhqxi encounter procedureKatia SAMUELS [facility] Start: 10-03-2023 End: 20-37-0021Azv Drop offKatia SAMUELS [facility] Start: 10-03-2023 End: 43-83-9573Dcgvlzs encounter procedurePatriczahida SAMUELS [facility] Start: 30-90-2310Pcv-patient / Non-visitMD Stanley Emerson Work Phone: [facility] Nephrology Work Phone: Start: 65-45-3369BuxiklzevdasocmHT Edludy Hemeyer Work Phone: [facility]: 09-18-2023 End: 25-62-9959jbmhqmvhseGC Edludy J Hemeyer Work Phone: [facility] Work Phone: Start: 09-18-2023 End: 41-04-7009Fknnwbh encounter procedureMD Edludy Hemeyer Work Phone: [facility] Vascular Surgery Work Phone: Start: 09-11-2023 End: 58-53-6652Jnuxeuq encounter procedurePatamara SAMUELS [facility] Start: 08-18-2023 End: 87-36-0178vednlnwiufBA Edludy J Hemeyer Work Phone: [facility] Work Phone: Start: 08-18-2023 End: 73-67-2279Eeqldks encounter procedureMD Edludy Hemeyer Work Phone: [facility] [place] Work Phone: Start: 08-15-2023 End: 30-71-8402Ghackwp encounter procedurePatriczahida SAMUELS [facility] Start: 07-31-2023 End: 47-86-5094Jkwvgylvs Result EncounterGeneric External Data ProviderNOMS External Department UnsolicitedStart: 07-31-2023 End: 91-48-3772Ntlouujup Result EncounterGeneric External Data ProviderNOMS External Department UnsolicitedStart: 06-30-2023 End: 35-17-3340Ojwhurs encounter procedurePatricPlasmon Isabel [employer] [facility] start: 06-16-2023 End: 82-38-9424Omcxgkr encounter procedurePatricPlasmon Isabel [employer] [facility] start: 06-10-2023 End: 89-84-4353Zxydwjt encounter procedurePatricPlasmon Isbael [employer] [facility] Start: 05-06-2023 End: 90-86-5784hjgqmqyjpeMydh Bakcatherines Other [employer] Other Start: 75-97-0099Mizbchdoa encounterAzcelestino DanielssFPG NephrologyStart: 04-16-2023 End: 42-35-3877mjllkjpfywCjtn Bakhous Other [employer] Other Start: 62-86-7527Begosfjrn encounterAziz BakcatherinesFPG NephrologyStart: 04-15-2023 End: 82-66-9665oljdpzrmqaGbft Bakhous Other [employer] Other Start: 03-15-0253Ebhurr outpatient visit 25 minutes Azcelestino MinG NephrologyStart: 04-08-2023 End: 78-31-2872znaasnxoxjSS Stanley Emerson Work Phone: [facility] Work Phone: Start: 04-08-2023 End: 11-80-9172Lkiuzks encounter procedureMD Stanley Emerson Work Phone: [facility]: 03-11-2023 End: 50-08-5360Gvp Drop offPatrick R [employer] [facility] Start: 03-11-2023 End: 31-07-2706Jtdnomc encounter procedurePatrick R [employer] [facility] Start: 10-99-7525Otnevc outpatient visit 25 minutes Stanley Emerson Work Phone: [phone]-LskdePatricia [place] [address] DO Work Phone: Start: 61-10-2910gizilddkhdBnSigrid Al Facility:[id number]: 12-25-2022 End: 12-11-1319Pfdrxmw encounter procedurePatrick R [employer] [facility] Start: 12-10-2022 End: 22-40-9946Mbz Drop offPatrick R [employer] [facility] Start: 12-10-2022 End: 94-38-2319Tuqiyys encounter procedurePatrick R [employer] [facility] Start: 10-04-2022 End: 76-46-0291Jirubgk encounter procedurePatrick R [employer] [facility] Start: 09-18-2022 End: 49-99-6858Dxipwsh encounter procedurePatamara SAMUELS [facility] Start: 09-15-2022 End: 17-72-8759ephizdcfqkBJ EDWARD HEMEYER .Facility:G5Sljhn: 09-12-2022 End: 45-71-3861ksiyyyqghyGW EDWARD HEMEYER .Facility:S5Jknei: 09-08-2022 Encounter for preprocedural laboratory examinationSelect Medical [facility] Hospitaltart: 09-04-2022 End: 68-19-5923pjiyoijzczNC EDLUDY EMERSON .Facility:E5Usgjv: 09-04-2022 Encounter for preprocedural cardiovascular examinationDR KATIA SAMUELS .[facility] 09-02-2022 End: 59-93-5360jgyoanqvsnLS EDLUDY HEMECHERY .Facility:E6Uswkf: 09-02-2022 End: 80-30-4583Btedyoiku for preprocedural laboratory examinationDR EDLUDY HEMEYER .Facility:O6Maiwy: 09-02-2022 End: 83-55-4128kfektcwlrdMT EDWARD HEMEYER .Facility:I8Ehkle: 09-02-2022 End: 23-92-9382Uvkxhdsev for preprocedural cardiovascular examinationDR EDLUDY HEMEYER .Facility:H7Vdmln: 08-21-2022 End: 08-18-3518gqrzczqtlgDkwpab Ruttino Other [facility] [employer] Other Start: 79-26-6949Ocjhmh-up encounterJatoya ThomasPG Vascular SurgeryStart: 08-16-2022 End: 16-79-2200xukeopmuklNC Stanley Emerson Work Phone: [facility] Work Phone: Start: 08-16-2022 End: 16-02-3731Zfzoocb encounter procedureMD Stanley Emerson Work Phone: [facility] [place] Work Phone: Start: 07-31-2022 End: 29-10-6573Qbldupx encounter procedurePatriczahida SAMUELS [facility] Start: 07-25-2022 End: 75-11-3129uxxfhfvbzqXnyaoyn Langenberg Other [employer] Other Start: 02-31-5253Pfxulf follow up visit related to original pxMargarito ValentineFPG Vascular SurgeryStart: 07-24-2022 End: 63-36-9332uqvorfapgcXD Stanley Emerson Work Phone: [facility] Work Phone: Start: 07-24-2022 End: 28-17-2224Ndxeuce encounter procedureMD Stanley Emerson Work Phone: [facility] [place] Work Phone: Start: 07-02-2022 End: 09-38-8819Cmvfljjcre and management of inpatientMD Stanley Emerson Work Phone: [facility] [place] [facility] Work Phone: Start: 06-21-2022 End: 39-54-2408Urlrozv encounter procedureMD Stanley Emerson Work Phone: [facility]-Ikm-Yrhlbvlu Testing Work Phone: Start: 06-19-2022 End: 93-92-5020wcjnncrnbhJzhimoq Langenberg Other [employer] Other Start: 58-99-2389Rkmfne outpatient visit 25 minutes Margarito Larry Vascular SurgeryStart: 06-12-2022 End: 93-35-0887wbdoaqiinpXH Stanley Rich Idania Work Phone: [facility] Work Phone: Start: 06-12-2022 End: 16-97-0186Xjwlfcj encounter procedureMD Stanley Idania Work Phone: [facility] [place] Work Phone: Start: 06-11-2022 End: 40-19-7118Vdglqkn encounter procedureJENNJASON QUINNRY [facility] start: 06-06-2022 End: 78-62-7969pegzzlfeiiGbglsbu Langenberg Other [facility] [employer] Other Start: 23-45-2031Rchzut outpatient visit 25 minutes Margarito AverySofía Vascular SurgeryStart: 06-04-2022 End: 06-24-9085ckwgmecmbhOqha Bakhous Other [facility] [employer] Other Start: 86-16-0984Qupqpg outpatient visit 25 minutes Celia Acevedo Nephrology ClydeStart: 64-11-2125Uztcds outpatient visit 25 minutesStanley Emerson Work Phone: [phone]-Tpnmp [facility]ominic [address] DO Work Phone: Start: 51-83-9224zhmhwgosclCx. Stanley Emerson Facility:[id number]: 81-80-1117uzxasaihqtAe. Stanley EmersonFacility:9090 Start: 13-15-1172ygdfxwibcpDx. Stanley EmersonFacility:9090Start: 75-58-8865wipkevqixjMd. Teo QuilesadanFacility:9090Start: 05-18-[address] Teo AlFacility:9090Start: 97-17-0867uivkozmyyzSt. Stanley EmersonFacility:9090Start: 71-53-7461WzlkutbinqijrdiRX Stanley Emerson Work Phone: [facility] HospitalComment on above: Problem List clean-up per request of Phys. EHR CmteStart: 52-67-8871qatovggkdk Dr. Teo AlFacility:9090Start: 05-16-2022 End: 02-27-8164Nuoipdzaz for preprocedural cardiovascular examinationMD Stanley Emerson Work Phone: [facility]: 05-16-2022 End: 20-03-1725Yszfejkafx and management of inpatientMD Stanley Emerson Work Phone: [facility] Work Phone: Start: 05-16-2022 End: 42-96-8075tvjnixdrhcNM STANLEY EMERSON .Facility:F3Cxkbf: 05-15-2022 End: 78-74-1957bipnxhnbslUR STANLEY EMERSON .Facility:V4Rytrc: 01-04-2022 End: 06-38-0786vidioiclotSA STANLEY EMERSON .Facility:F3Etlozvg encounter status Stanley Emerson Work Phone: [phone]-Jehdr [facility] [address] DO Work Phone: End: 20-51-1148Shojhgi encounter statusStanley Emerson Work Phone: [phone]-Rxaau [facility] 250 DO Work Phone: Procedures DateProcedureProcedure DetailPerforming ClinicianStart: 57-80-8177Wgs routine ecg w/least 12 lds w/i&Jacklein Al MD Work Phone: Start: 58-60-5531TL CHEST 2VGeneric External Data ProviderStart: 85-46-3999MVE BASIC METABOLIC PANELGeneric External Data Provider Start: 77-36-4919BVI LIPID PROFILE (FASTING)Generic External Data ProviderStart: 63-40-4911GXF THYROID STIM HORMONEGeneric External Data ProviderStart: 15-22-2932UQT ASTGeneric External Data ProviderStart: 96-53-3414LBMM CBC WITH PLATELET NO DIFFERENTIALGeneric External Data ProviderStart: 45-51-9152VTR HEMOGLOBINGeneric External Data ProviderStart: 19-40-0487RvbkewmukfWyuzhxf SAMUELS Start: 79-96-1793YDQH CBC WITH PLATELET NO DIFFERENTIAL Generic External Data ProviderStart: 97-96-3614IT Angiogram w/TLA/Stent Left Leg (Left)Stanley Emerson MD Work Phone: Start: 72-73-3574Xoato of magnesiumWaqar Pink MD Work Phone: [phone]: 71-48-3446CHRDP METABOLIC PANEL W/ REFLEX TO MG FOR LOW KKim Aidee Pink MD Work Phone: [phone]: 66-59-4844Njf routine ecg w/least 12 lds w/i&r Waqar Pink MD Work Phone: Start: 11-95-3881Fqz-scan xtr veins complete bilateral studyTarif Boni CASILLAS Work Phone: Start: 86-72-8766Czmdu centrifuge enhncd id imfluor stain eaWaqar Pink MD Work Phone: [phone]: 26-63-5382LYGFK METABOLIC PANEL W/ REFLEX TO MG FOR LOW KKim S Joesph CASILLAS Work Phone: Start: 44-96-5747Ntauugzzumt timeWaqar Pink MD Work Phone: Start: 59-49-1723Maldw of ferritinWaqar Pink MD Work Phone: Start: 62-90-7121DZPKE METABOLIC PANEL W/ REFLEX TO MG FOR LOW KKim Aidee Pink MD Work Phone: Start: 71-54-2622WSNFPFF B12 & FOLATEWaqar Pink MD Work Phone: Start: 10-02-2024 End: 69-87-8636Wdqwjhs bacterial quanttative colony count urineWaqar Pink MD Work Phone: Start: 71-63-1661BAON CULT,URINEGeneric External Data ProviderStart: 39-94-1307Mwoce s aureus methicillin resist amp probe tqWaqar Pink MD Work Phone: [phone]: 59-85-5478BANIEJMDEWW PANEL, MOLECULAR, WITH COVID-19Waqar Pink MD Work Phone: [phone]: 73-15-3738Tabygqhg mycoplsmWaqar Pink MD Work Phone: Start: 58-47-0737Vgszm metabolic panel calcium total Waqar Pink MD Work Phone: Start: 30-11-9210Iccscqffnes [Units/volume] in Serum or PlasmaRuby Montana MD Work Phone: Start: 71-91-5364OTAYT CULTURE - FRMCGeneric External Data ProviderStart: 11-00-8731Gmfcd Angel Emerson MD Work Phone: Start: 54-01-1187RGNUN CULTURE - FRMCGeneric External Data ProviderStart: 34-04-4064Dugwj Ezequiel Bo MD Work Phone: Start: 22-42-1603Umdqf dip stick/tablet rgnt non-auto w/o micrscpEdluyd Emerson MD Work Phone: Start: 22-97-4564Yne routine ecg w/least 12 lds w/i&r Teo Al MD Work Phone: Start: 63-05-3720NEJ LIPID PROFILE (FASTING)Generic External Data ProviderStart: 40-44-2368RZW THYROID STIM HORMONEGeneric External Data ProviderStart: 14-75-4761SWBEmzgvtx External Data ProviderStart: 07-29-2024 Ecg routine ecg w/least 12 lds w/i&rHignacio Al MD Work Phone: Start: 05-63-7500ZPMZpzcykd External Data Provider Start: 54-58-0503EXK THYROID STIM HORMONEGeneric External Data ProviderStart: 39-66-6481AHMXHZ PROTHROMBIN TIME INR W/O Garry Sequeira MD Work Phone: Start: 19-51-2599LJBAfxxtlz External Data Provider Start: 22-53-9038CMOLdyfjkn External Data ProviderStart: 83-11-5189Iua routine ecg w/least 12 lds w/i&Jackelin Al MD Work Phone: Start: 17-23-2149IIATN CULTURE 2Generic External Data ProviderStart: 09-51-4588UMJIY CULTURE 1Generic External Data ProviderStart: 68-40-0350QARZicnutp External Data ProviderStart: 32-52-7283Elpcmchx cystoscopy Katia SAMUELS Start: 63-90-8171GCULaigmid External Data Provider Start: 62-60-7715JSYAsahcax External Data ProviderStart: 56-72-3873DH PULMONARY FUNCTION TESTGeneric External Data ProviderStart: 40-91-0323ZBV HEMOGLOBIN Generic External Data ProviderStart: 13-92-2846Vwcfc Strep (POC)MD Stanley Emerson Work Phone: Start: 51-67-2564Kcuhr chest X-rayMD Stanley Emerson Work Phone: Start: 58-09-3600FNI HEMOGLOBINGeneric External Data ProviderStart: 53-65-1342Ouj routine ecg w/least 12 lds w/i&Jackelin Al MD Work Phone: Start: 79-99-6139Gjtcttqy identified in Urine by CultureMD Stanley Emerson Work Phone: Start: 88-82-8146Yjcib cultureMD Stanley Emerson Work Phone: Start: 88-29-0235Odjpcwnr identified in Urine by CultureMD Stanley Emerson Work Phone: Start: 65-66-3291Wvapo cultureMD Stanley Emerson Work Phone: Start: 99-12-5895Glgmh chest X-rayMD Stanley Emerson Work Phone: Start: 20-83-1886XR Iliac/Fem w/LHCMD Stanley Emerson Work Phone: Start: 46-50-7969QF LHC & COR AngioMD Stanley Emerson Work Phone: Start: 90-02-7314MP PCI AMI 1st Vessel LAD DESMD Stanley Emerson Work Phone: Start: 32-07-4679IcmnlekvazxLM Stanley Emerson Work Phone: Start: 59-02-5057Umhslbcz cystoscopyAppcorezahida [employer] Start: 51-45-8174DI of abdomen and pelvis without contrastMD Stanley Emerson Work Phone: Start: 33-70-0159Ylh-scan xtr veins unilateral/limited studyGeneric External Data ProviderStart: 97-82-9354Jhzvgssgyg, device (physical object)Katia SAMUELS Start: 81-71-0693Qoiazmedzldvr resection of bladder neoplasmUofl Health - Mary And Elizabeth Hospitalzahida [employer] Start: 48-02-6875Zjdxpjhn tomography angiography of abdominal and/or pelvic blood vesselMD Stanley Emerson Work Phone: Start: 43-73-1874IzvrsvygquYagmapt [employer] Start: 33-78-4316Kvlflpjjuynr repair of abdominal aortic aneurysmMD Stanley Emerson Work Phone: Start: 11-99-3769Ijlagjct tomography angiography of abdominal and/or pelvic blood vesselMD Stanley Emerson Work Phone: Start: 74-45-4900Veycuvoqtysk myocardial perfusion stress studyMD Stanley Emerson Work Phone: Start: 13-75-8844Rof and Parasite Result 1MD Stanley Emerson Work Phone: Start: 92-72-3966Lwz OR parasites identificationMD Stanley [employer] Work Phone: Start: 57-05-1935Dqgkb cultureMD Stanley [employer] Work Phone: Cataract surgeryEdludy Rich [employer]cher[employer] Work Phone: Insertion of stent in inferior vena cavaEdludy Rcih [employer] Work Phone: Operation on bladderEdludy Rich [employer] Work Phone: Urinary catheter placementEdludy Rich [employer] Work Phone: NEGATED: Highlighted row has not occurred!Colonoscopy Stanley Rich [employer] Work Phone: Plan of Treatment DateCare ActivityDetailAuthorStart: 43-76-3621QPoF/Tdap/Td Vaccines (2 - Td or Tdap)DTaP/Tdap/Td Vaccines (2 - Td or Tdap)[facility] Start: 11-15-2025 End: 22-70-0378Ppwsqpz encounter gzptrincu05/23/2026 11:20 AM EDT Office Visit [facility] [address] [phone] Teo Al MD [address] [facility] [address] [place] [address] [facility] HospitalStart: 45-47-6830Wtditwi stimulating hormone measurementTSH LevelUnToledo Hospital: 80-98-3470ECFUF-19 Vaccine ( season)COVID-19 Vaccine ( season)[facility]: 78-38-9908YtzrbmtvqjcrroubKbdhgghcdiwncbPimpljknqv [facility]Start: 06-29-2025 End: 32-42-3306Jzzqquzmixi [Units/volume] in Serum or PlasmaThyroid Stimulating Hormone Lab Routine Paroxysmal atrial fibrillation (Multi) High risk medication use Expected: 06/29/2025 (Approximate), Expires: 03/29/2026[facility] Area Work Phone: Comment on above:Expected: 06/29/2025 (Approximate), Expires: 03/29/2026Start: 12-19-2025Medicare Annual Wellness (AWV)Medicare Annual Wellness (AWV)[facility] HealthcareStart: 05-10-2025 End: 67-63-9243Lqgqgfv encounter droefbdfj05/16/2025 2:00 PM EST Office Visit [address] Medicine [address] [place] [address] Stanley Emerson MD [address] [place] [address] (Fax)[address] MedicineStart: 92-38-7348dmxbzgnwaiWszlucjfjwWphkoqcg:EU [place]vueStart: 03-29-2025 End: 32-98-7027Ueoprpf encounter ekypqligd75/04/2025 11:00 AM EST Office Visit [facility] [address] [facility] [address] [place] [address] Teo Al MD [address] [facility] [address] [place] [address] [facility]: 03-21-2025 End: 95-67-4136Wxrblwis Pulmonary Function Test (Spirometry/DLCO/Lung Volumes) Complete Pulmonary Function Test (Spirometry/DLCO/Lung Volumes) PFT Routine Paroxysmal atrial fibrillation (Multi) High risk medication use Expected: 03/21/2025 (Approximate), Expires: 05/21/2025[facility] Work Phone: Comment on above:Expected: 03/21/2025 (Approximate), Expires: 05/21/2025Start: 03-21-2025 End: 19-75-8046NL Chest 2 ViewsXR chest 2 views Imaging Routine Paroxysmal atrial fibrillation (Multi) High risk medication use Expected: 03/21/2025, Expires: 05/21/2025[facility] Work Phone: Comment on above:Expected: 03/21/2025, Expires: 05/21/2025Start: 03-12-2025 End: 93-46-3539Ksxjbgwk Pulmonary Function Test (Spirometry/DLCO/Lung Volumes) Complete Pulmonary Function Test (Spirometry/DLCO/Lung Volumes) PFT Routine Paroxysmal atrial fibrillation (Multi) High risk medication use Expected: 03/12/2025 (Approximate), Expires: 09/10/2025[facility] Service Area Work Phone: Comment on above:Expected: 03/12/2025 (Approximate), Expires: 09/10/2025Start: 97-68-9686Dbdkvr Vaccines (2 of 2)Zoster Vaccines (2 of 2)[facility] HospitalStart: 01-29-2025 End: 76-19-0394Lbvxydiov aminotransferase [Enzymatic activity/volume] in Serum or Plasma by With P-5'-PAspartate Aminotransferase Lab Routine Paroxysmal atrial fibrillation (Multi) High risk medication use Expected: 01/29/2025, Expires: 07/29/2025[facility] Service Area Work Phone: Comment on above:Expected: 01/29/2025, Expires: 07/29/2025Start: 01-29-2025 End: 10-53-1414Palzn metabolic 2000 panel - Serum or PlasmaBasic Metabolic Panel Lab Routine Paroxysmal atrial fibrillation (Multi) High risk medication use Ex pected: 01/29/2025, Expires: 07/29/2025[facility] Work Phone: Comment on above:Expected: 01/29/2025, Expires: 07/29/2025Start: 01-29-2025 End: 37-00-3634Vdahxhzy Pulmonary Function Test (Spirometry/DLCO/Lung Volumes) Complete Pulmonary Function Test (Spirometry/DLCO/Lung Volumes) PFT Routine Paroxysmal atrial fibrillation (Multi) High risk medication use Expected: 01/29/2025 (Approximate), Expires: 07/29/2025[facility] Work Phone: Comment on above:Expected: 01/29/2025 (Approximate), Expires: 07/29/2025Start: 01-29-2025 End: 59-65-2069Fkyux 1996 panel - Serum or PlasmaLipid Panel Lab Routine Dyslipidemia Expected: 01/29/2025 (Approximate), Expires: 07/29/2025[facility] Work Phone: Comment on above:Expected: 01/29/2025 (Approximate), Expires: 07/29/2025Start: 01-29-2025 End: 66-16-8442Nrgibvwdkzp [Units/volume] in Serum or PlasmaThyroid Stimulating Hormone Lab Routine Paroxysmal atrial fibrillation (Multi) High risk medication use Expected: 01/29/2025, Expires: 07/29/2025[facility] Work Phone: Comment on above:Expected: 01/29/2025, Expires: 07/29/2025Start: 01-29-2025 End: 41-30-3315DX Chest 2 ViewsXR chest 2 views Imaging Routine Paroxysmal atrial fibrillation (Multi) High risk medication use Expected: 01/29/2025 (Approximate), Expires: 07/29/2025[facility] Work Phone: Comment on above:Expected: 01/29/2025 (Approximate), Expires: 07/29/2025Start: 82-35-0088AFFFY-19 Vaccine ( season)COVID- 19 Vaccine ( season)[facility] HealthcareStart: 52-78-8830Telheuqga vaccinationInfluenza Vaccine (#1)[facility] HealthcareStart: 01-15-2025 EchocardiographyEchocardiogramUnSt. Francis HospitalStart: 11-19-2024 End: 28-59-0775Injyquo aminotransferase [Enzymatic activity/volume] in Serum or Plasma by With P-5'-PAlanine Aminotransferase Lab Routine Paroxysmal atrial fibrillation (Multi) High risk medication use Expected: 11/19/2024 (Approximate), Expires: 05/21/2025[facility] Work Phone: Comment on above:Expected: 11/19/2024 (Approximate), Expires: 05/21/2025Start: 11-19-2024 End: 46-02-0166Nzwaavxom aminotransferase [Enzymatic activity/volume] in Serum or Plasma by With P-5'-PAspartate Aminotransferase Lab Routine Paroxysmal atrial fibrillation (Multi) High risk medication use Expected: 11/19/2024 (Approximate), [facility]: Comment on above:Expected: 11/19/2024 (Approximate), Expires: 05/21/2025Start: 11-19-2024 End: 98-54-7399Awxkv metabolic 2000 panel - Serum or PlasmaBasic Metabolic Panel Lab Routine Paroxysmal atrial fibrillation (Multi) High risk medication use Ex pected: 11/19/2024 (Approximate), Ex[facility]: [facility] Phone: Comment on above:Expected: 11/19/2024 (Approximate), Expires: 05/21/2025Start: 11-19-2024 End: 51-76-5340YLQ panel - Blood by Automated countCBC Lab Routine Paroxysmal atrial fibrillation (Multi) High risk medication use Expected: 11/19/2024 (Approximate), Expires: [facility] Work Phone: Comment on above:Expected: 11/19/2024 (Approximate), Expires: 05/21/2025Start: 11-19-2024 End: 78-99-9063Veuva 1996 panel - Serum or PlasmaLipid Panel Lab Routine Dyslipidemia Expected: 11/19/2024 (Approximate), Expires: [facility] Work Phone: Comment on above:Expected: 11/19/2024 (Approximate), Expires: 05/21/2025Start: 11-19-2024 End: 54-39-3083Rloorfcumnh [Units/volume] in Serum or PlasmaThyroid Stimulating Hormone Lab Routine Paroxysmal atrial fibrillation (Multi) High risk medication use Expected: 11/19/2024 (Approximate), Expires: [facility] Work Phone: Comment on above:Expected: 11/19/2024 (Approximate), Expires: 05/21/2025Start: 11-09-2024 End: 35-97-4538Jrnoagj encounter procedureNOMS CI FM 100Comment on above:Arrived Start: 10-14-2024 End: 08-19-9678Lcdgqgu encounter sphmmvodo51/22/2025 2:30 PM EDT Office Visit [facility] CI FM [address] [place] [address] Stanley Emerson MD [address] [place] [address] NOMS CI FM 100Start: 91-24-7233TzncrjvttGrand Lake Joint Township District Memorial Hospitaltart: 10-08-2024 End: 29-60-3403Ulrrx metabolic 2000 panel - Serum or PlasmaBasic Metabolic Panel Lab Routine Pre-operative cardiovascular examination Expected: 10/08/2024 (Celine roximate), Expires: 10/[facility]25[facility] Work Phone: Comment on above:Expected: 10/08/2024 (Approximate), Expires: 10/08/2025Start: 10-08-2024 End: 04-65-3507OCV panel - Blood by Automated countCBC Lab Routine Pre-operative cardiovascular examination Expected: 10/08/2024 (Approximate), Expires: 10/[facility]25[facility] Work Phone: Comment on above:Expected: 10/08/2024 (Approximate), Expires: 10/08/2025Start: 10-08-2024 End: 52-21-6415IO and aPTT panel - Platelet poor plasma by Coagulation assay Coagulation Screen Lab Routine Pre-operative cardiovascular examination Bradyarrhythmia on pre-operative cardiovascular examination Pre-operative cardiovascular examination, supraventricular arrhythmia Expected: 10/08/2024 (Approximate), Expires: 10/08/2025[facility] Service Area Work Phone: Comment on above:Expected: 10/08/2024 (Approximate), Expires: 10/08/2025Start: 55-23-4278Rrqgoz Wellness Visit (Medicare)Annual Wellness Visit (Medicare)[facility] HealthcareCoupz [facility] HospitalStart: 82-88-2137Ulhjn culture [facility] Hospitaltart: 94-70-5999Xnfaqtxx identified in Urine by CultureUrine CultureGrand Lake Joint Township District Memorial Hospitaltart: 29-99-8191Wridn cultureGrand Lake Joint Township District Memorial Hospitaltart: 54-97-4166Aabjtsjz identified in Urine by CultureUrine CultureGrand Lake Joint Township District Memorial Hospitaltart: 09-23-2024 US Lower extremity artery - bilateralGrand Lake Joint Township District Memorial Hospitaltart: 09-21-2024 End: 24-11-9692Qmcgogm encounter /29/2025 2:15 PM EDT Office Visit NOMS CI FM 100 [address] [facility] [address] [place] [address] Stanley Emerson MD [address] [facility] [address] [place] [address] 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 [...] urinary catheter present; Former smoker; Polypharmacy; OverweightStart: 52-30-3296IWLYS-19 Vaccine ()COVID-19 Vaccine ( season)[facility] HospitalStart: 34-63-6181TDOKU-19 Vaccine ( season)COVID-19 Vaccine ()Bon [facility] HealthcareCoupz [facility] HospitalStart: 09-10-2024 End: 37-79-3051Khlzdybji aminotransferase [Enzymatic activity/volume] in Serum or Plasma by With P-5'-PAspartate Aminotransferase Lab Routine Dyslipidemia Expected: 09/10/2024 (Approximate), Expires: 09/10/2025[facility] Work Phone: Comment on above:Expected: 09/10/2024 (Approximate), Expires: 09/10/2025Start: 09-10-2024 End: 01-20-8486Ngqyr metabolic 2000 panel - Serum or PlasmaBasic Metabolic Panel Lab Routine Cardiomyopathy, ischemic Coronary artery disease involving [place] coronary artery of [place] heart without angina pectoris Expected: 09/10/2024 (Approximate), Expires: 09/10/[facility]25[facility] Work Phone: Comment on above:Expected: 09/10/2024 (Approximate), Expires: 09/10/2025Start: 09-10-2024 End: 56-93-3258Maxjhkijwoc [Units/volume] in Serum or PlasmaThyroid Stimulating Hormone Lab Routine Dyslipidemia Expected: 09/10/2024 (Approximate), [facility]: [facility] Work Phone: Comment on above:Expected: 09/10/2024 (Approximate), Expires: 09/10/2025Start: 09-09-2024 End: 99-06-7411Moibqjaohkr [Units/volume] in Serum or PlasmaThyroid Stimulating Hormone Lab Routine Paroxysmal atrial fibrillation (Multi) High risk medication use Expected: 09/09/2024 (Approximate), Expires: 07/29/[facility]25[facility] Work Phone: Comment on above:Expected: 09/09/2024 (Approximate), Expires: 07/29/2025Start: 07-29-2024 End: 84-22-9350Cpbiqks encounter hoqacjamx05/06/2025 11:00 AM EST Office Visit [facility] [address] [facility] [address] [place] [phone] Teo Al MD [address] [facility] [address], [address] [place] [address] [facility]Start: 05-21-2024 End: 74-38-8679Ncptfcp aminotransferase [Enzymatic activity/volume] in Serum or Plasma by With P-5'-PAlanine Aminotransferase Lab Routine Paroxysmal atrial fibrillation (Multi) High risk medication use Expected: 05/21/2024 (Approximate), Expires: 05/21/2025[facility] Work Phone: Comment on above:Expected: 05/21/2024 (Approximate), Expires: 05/21/2025Start: 05-21-2024 End: 55-70-8735Rxepepvqk aminotransferase [Enzymatic activity/volume] in Serum or Plasma by With P-5'-PAspartate Aminotransferase Lab Routine Paroxysmal atrial fibrillation (Multi) High risk medication use Expected: 05/21/2024 (Approximate), Expires: 05/21/2025[facility] Work Phone: Comment on above:Expected: 05/21/2024 (Approximate), Expires: 05/21/2025Start: 05-21-2024 End: 62-68-1528Wseyl metabolic 2000 panel - Serum or PlasmaBasic Metabolic Panel Lab Routine Paroxysmal atrial fibrillation (Multi) High risk medication use Ex pected: 05/21/2024 (Approximate), Expires: 05/[facility]25[facility] Work Phone: Comment on above:Expected: 05/21/2024 (Approximate), Expires: 05/21/2025Start: 05-21-2024 End: 16-64-0224Szadxyacliv [Units/volume] in Serum or PlasmaThyroid Stimulating Hormone Lab Routine Paroxysmal atrial fibrillation (Multi) High risk medication use Expected: 05/21/2024 (Approximate), Expires: 05/21/2025[facility] Work Phone: Comment on above:Expected: 05/21/2024 (Approximate), Expires: 05/21/2025Start: 05-13-2024 End: 51-74-9674Kkckvlo encounter procedureNOMS CI FM 100Comment on above: Encounter for Medicare annual wellness exam; Advance directive discussed with patient; Encounter for screening for other disorder; Screening for alcohol problem; Former smoker; PolypharmacyStart: 05-10-2024 End: 66-45-7999Anwbbxu encounter vaimrlnls06/16/2024 11:00 AM EST Office Visit [facility] CI FM [address] [place] [address] Stanley Emerson MD [address] [place] [address] (Fax) Essential hypertension, benign (CMS/HCC); Hypertensive nephropathy [...] both ears; Former smoker; OverweightStart: 05-06-2024 End: 76-07-3334Pifuibt encounter procedureNOMS CI FM 100Start: 04-12-2024 End: 21-02-9471Opycghz encounter gekyzdmrm50/18/2024 3:20 PM EST Office Visit [facility] [address] [facility] [address] [place] [address] Teo Al MD [address] [facility] [address], [address] [place], [place] [id number] [facility]: 03-18-2024 End: 45-71-3349Lrrxmiv encounter ufgppacpu70/24/2024 11:30 AM EDT Office Visit [facility] CI FM 100 [address] [facility] [address] [place] [address] Stanley Emerson MD [address] [facility] [place] [address] Pneumonia of right lower lobe due to infectious organismNOMS CI FM 100Comment on above:Pneumonia of right lower lobe due to infectious organismStart: 03-11-2024 End: 74-86-9455Lpdftthr Pulmonary Function Test (Spirometry/DLCO/Lung Volumes) Complete Pulmonary Function Test (Spirometry/DLCO/Lung Volumes) PFT Routine Paroxysmal atrial fibrillation (Multi) High risk medication use Expected: 03/11/2024 (Approximate), Expires: 02/09/2025[facility] Work Phone: Comment on above:Expected: 03/11/2024 (Approximate), Expires: 02/09/2025Start: 03-11-2024 End: 50-19-2581MM Chest 2 ViewsXR chest 2 views Imaging Routine Paroxysmal atrial fibrillation (Multi) High risk medication use Expected: 03/11/2024, Expires: 02/09/2025[facility] Work Phone: Comment on above:Expected: 03/11/2024, Expires: 02/09/2025Start: 33-78-4439Nkuzc chest X-rayXR chest 2V*[facility] Hospitaltart: 02-18-2024 End: 99-47-3756Nqqjymllhvnn / ancillary services lyqhtwbmkt33/25/2024 1:00 PM EDT Ancillary Procedure [address] [place] [address] [facility] CenterStart: 02-17-2024 End: 10-38-4401XCW 12 LeadECG 12 Lead ECG Routine Paroxysmal atrial fibrillation (Multi) Expected: 02/17/2024 (Approximate), Expires: 02/09/2025[facility] Work Phone: Comment on above:Expected: 02/17/2024 (Approximate), Expires: 02/09/2025Start: 02-10-2024 End: 76-71-2575Fddppaurg aminotransferase [Enzymatic activity/volume] in Serum or Plasma by With P-5'-PAspartate Aminotransferase Lab Routine Paroxysmal atrial fibrillation (Multi) High risk medication use Expected: 02/10/2024 (Approximate), Expires: 02/09/2025[facility] Work Phone: Comment on above:Expected: 02/10/2024 (Approximate), Expires: 02/09/2025Start: 02-10-2024 End: 00-93-6073Bmygr metabolic 2000 panel - Serum or PlasmaBasic Metabolic Panel Lab Routine Paroxysmal atrial fibrillation (Multi) High risk medication use Ex pected: 02/10/2024 (Approximate), Expires: 02/09/2025[facility] Work Phone: Comment on above:Expected: 02/10/2024 (Approximate), Expires: 02/09/2025Start: 02-10-2024 End: 87-55-5644Qizveyzxbiy [Units/volume] in Serum or PlasmaThyroid Stimulating Hormone Lab Routine Paroxysmal atrial fibrillation (Multi) High risk medication use Expected: 02/10/2024 (Approximate), Expires: 02/09/2025[facility] Work Phone: Comment on above:Expected: 02/10/2024 (Approximate), Expires: 02/09/2025Start: 38-33-6251TZQIZ-19 Vaccine ( season)COVID- 19 Vaccine ( season)[facility] HospitalStcovington: 59-07-0965Kspzjvmax vaccinationInfluenza Vaccine (#1)[facility] HospitalStcovington: 21-99-4528CrzmbckcqGrand Lake Joint Township District Memorial Hospitaltart: 01-23-2024 Bacteria identified in Urine by CultureGrand Lake Joint Township District Memorial Hospitaltart: 50-82-3391Swlbbosw to clinical allergistGrand Lake Joint Township District Memorial Hospitaltart: 37-58-7850Lcirzngr to rehabilitation physicianPromedica Memorial Hospital Start: 53-50-4240MHH, Provider: Teo Al, Status: Pen, Time: 11:50 AMFUV, Provider: Teo Al, Status: Pen, Time: 11:50 [facility] 250 DO Work Phone: Start: 55-01-2391Gsjaqjmo of Coronary Artery, One Artery with Drug-eluting Intraluminal Device, Percutaneous ApproachDilation of Coronary Artery, One Artery with Drug-eluting Intraluminal Device, Percutaneous ApproachGrand Lake Joint Township District Memorial Hospitaltart: 46-83-4941Hsmnguldncl of Left Heart using Low Osmolar ContrastFluoroscopy of Left Heart using Low Osmolar ContrastGrand Lake Joint Township District Memorial Hospitaltart: 65-80-4067Cipxsntsozi of Multiple Coronary Arteries using Low Osmolar ContrastFluoroscopy of Multiple Coronary Arteries using Low Osmolar ContrastPromedica Memorial Hospital Start: 67-02-7690Dcgbjgndjed of Cardiac Sampling and Pressure, Left Heart, Percutaneous ApproachMeasurement of Cardiac Sampling and Pressure, Left Heart, Percutaneous ApproachGrand Lake Joint Township District Memorial Hospitaltart: 22-09-9681Uxvltcli admissionGrand Lake Joint Township District Memorial Hospitaltart: 48-18-0372Ypwetkwb to cardiac rehabilitation programGrand Lake Joint Township District Memorial Hospitaltart: 01-16-2024 [facility] Hospitaltart: 80-16-0859AtnpoggefGrand Lake Joint Township District Memorial Hospitaltart: 94-27-1990Ipdquagp identified in Urine by CultureGrand Lake Joint Township District Memorial Hospitaltart: 61-16-7273NHR, Provider: Teo Al, Status: Pen, Time: 10:10 AMFUV, Provider: Teo Al, Status: Pen, Time: 10:10 AMGillette Children's Specialty Healthcare 250 DO Work Phone: Start: 15-79-7527MD Abdomen WO and W contrast IV [facility] Hospitaltart: 60-93-0053PKW of abdomen with contrastMR abdomen wo/w [facility] Centertart: 45-99-5142OuzqsqdnlGrand Lake Joint Township District Memorial Hospitaltart: 80-59-0225Cwylbrwoqsk of Aorta and Bilateral Lower Extremity Arteries using Low Osmolar ContrastFluoroscopy of Aorta and Bilateral Lower Extremity Arteries using Low Osmolar ContrastGrand Lake Joint Township District Memorial Hospitaltart: 64-41-4152Bbnwuvpoast of Abdominal Aorta with Intraluminal Device, Percutaneous ApproachRestriction of Abdominal Aorta with Intraluminal Device, Percutaneous ApproachGrand Lake Joint Township District Memorial Hospitaltart: 92-90-0115VgvkmdlbjGrand Lake Joint Township District Memorial Hospitaltart: 51-61-7453Onwwaftsyl procedureGrand Lake Joint Township District Memorial Hospitaltart: 18-33-5987UssxbxddlGrand Lake Joint Township District Memorial Hospitaltart: 05-17-2022 End: 10-70-8355DofgvvsvsGrand Lake Joint Township District Memorial Hospitaltart: 86-39-0165Vcsylzxm to nephrologistGrand Lake Joint Township District Memorial Hospitaltart: 26-51-8210Hjbvffmc to vascular surgeonGrand Lake Joint Township District Memorial Hospitaltart: 67-87-2227Eftffoym admissionGrand Lake Joint Township District Memorial Hospitaltart: 04-62-2254KUG High Risk: (Elderly (60+) or Population) (1 - 1-dose 75+ series)RSV High Risk: (Elderly (60+) or Population) (1 - 1-dose 75+ series)[facility]: 45-21-2609SZL patients and/or patients aged 60+ years (1 - 1-dose 60+ series)RSV patients and/or patients aged 60+ years (1 - 1-dose 60+ series)[facility]: 91-47-5462Frecygeh vaccine (1 of 2)Shingles vaccine (1 of 2)[facility]: 33-16-9316Xiyvhd Vaccines (1 of 2)Zoster Vaccines (1 of 2) [facility]: 07-06-6273WTpX/Tdap/Td Vaccines (1 - Tdap)DTaP/Tdap/Td Vaccines (1 - Tdap)[facility]: 63-72-8406BUoC/Tdap/Td vaccine (1 - Tdap)DTaP/Tdap/Td vaccine (1 - Tdap)[facility]: 75-04-7183Qvmhg screening for proteinCKD: Urine Protein ScreeningC[facility]innati Shriners Hospital: 83-12-6919Bhoerqnd mellitus screeningDiabetes ScreeningUnToledo Hospital: 84-91-7936Chqmhfqvqq ScreenDepression ScreenBon [facility]: 45-31-0545Pfvkj panelLipidsBon [facility]: 11-25-9488BWcR/Tdap/Td Vaccines (1 - Tdap)DTaP/Tdap/Td Vaccines (1 - Tdap)[facility]: 49-69-9758Bfgbyoynpf measurementCreatinine [facility]: 72-59-4184Vjrta panelLipid PanelC[facility]: 07-08-1944Medicare Annual Wellness VisitMedicare Annual Wellness Visit (AWV)[facility]: 74-02-5883Rwmfxtmgc measurementPotassium [facility]: 1945 Thyroid stimulating hormone measurementTSNewman Memorial Hospital – Shattuck End: 55-34-0366Wqqzk Metabolic Panel w/ Reflex to MGBasic Metabolic Panel w/ Reflex to MG Lab Routine Tomorrow AM for 5 Occurrences starting 10/03/2024until 10/07/2024, 3 completedBon [facility]gleGallup [facility] Medical Center on above:Tomorrow AM for 5 Occurrences starting 10/03/2024 until 10/07/2024, 3 completedBLOOD CULTURE 1 BLOOD CULTURE 1 Lab Routine 04/28/2024 8:34 AM [facility] BLOOD CULTURE 2 Lab Routine 04/28/2024 8:40 AM [facility] End: 98-49-6976QYG W Auto Differential panel - BloodCBC with Auto Differential Lab Routine Tomorrow AM for 5 Occurrences starting 10/03/2024 until 10/07/2024, 3 completedBon [facility] KormeliGallup Indian Medical Center on above:Tomorrow AM for 5 Occurrences starting 10/03/2024 until 10/07/2024, 3 completedCulture, Urine Culture, Urine Microbiology [employer] Label Print 10/02/2024 3:43 PM EDRappahannock General HospitalFeifei.com [facility] 12 LeadECG 12 Lead ECG Routine Paroxysmal atrial fibrillation (Multi) 02/24/2024 2:45 PM [facility] Service Area Work Phone: insj implntbl defib pulse gen w/1 existing ldICD SUBQ IMPLANT Cardiomyopathy, ischemic Ventricular ectopy/arrhythmia, pre-operative cardiovascular examVirtual GARY Cardiac Cath LabOxygen therapy [Minimum Data Set] Initiate Oxygen Therapy Protocol Respiratory Care Routine As Needed until discontinued starting 10/02/2024on [facility] BioinformaticsComment on above:As Needed until discontinued starting 10/02/2024Patient EducationMiddletown Hospital Ctr Work Phone: Patient referralMiddletown Hospital Ctr Work Phone: End: 95-98-6880Mnathfp-INRProtime-INR Lab Routine Daily for 3 Weeks starting 10/03/2024 until 10/23/2024, 3 completedBon [facility] BioinformaticsComment on above:Daily for 3 Weeks starting 10/03/2024 until 10/23/2024, 3 completedRenal function 1999 panel - Serum or [facility] CampusRenal function 1999 panel - Serum or [facility] CampusRenal function 1999 panel - Serum or [facility] CampusRenal function 1999 panel - Serum or [facility] CampusRenal function 1999 panel - Serum or [facility] Centerpirometry panelIncentive spirometry Respiratory Care Routine Every 2hr while awake until discontinued starting 10/02/2024on [employer] BioinformaticsComment on above:Every 2hr while awake until discontinued starting 10/02/2024URINE CULTURE - FRMCURINE CULTURE - [facility] Lab Routine 09/28/2024 6:08 PM EDTNOCA HealthcareURINE CULTURE - FRMCURINE CULTURE - FR Lab Routine 10/01/2024 3:40 PM EDTNOCA Healthcare End: 11-17-6212DO Heart TransthoracicGERALD CHAMPION REG[facility] Service Area Work Phone: Comment on above:Once for 1 Occurrences starting 08/06/2024 until 08/06/2024US Thoracic and abdominal aortaPromedica Memorial HospitalXR Chest [address] [facility] Immunizations Immunization DateImmunizationNotesCare IljwhlemYyyxqsqq66-68-7380qvahacuhj virus vaccine, unspecified formulationAurora Orzech [facility]10-21-2025influenza, seasonal, injectableTeo Al MD Work Phone: [facility]10-16-2025influenza virus vaccine, unspecified formulationAurora Orzech [facility]ue10-16-2025influenza, high dose seasonal, preservative-freeTeo Al MD Work Phone: [facility]08-06-2025tetanus toxoid, reduced diphtheria toxoid, and acellular pertussis vaccine, adsorbed Teo Al MD Work Phone: [facility] Work Phone: [phone] vaccine recombinantTeo Al MD Work Phone: [facility] Work Phone: [phone] vaccine preF3, recombinantAurora Orzech [facility]ue03-31-2025RSV, recombinant, protein subunit RSVpreF, adjuvant reconstitu, 120mcg/0.5mL, PF (Arexvy)Stanley Emerson MD Work Phone: [facility] HospitalOpcxyeolho53-94-5211dnekfhyzc virus vaccine, unspecified formulationPaCharles River Hospital [facility] Centery10-25-2024influenza, seasonal, injectableGeneric ProviderNOHermann Area District Hospital 68-94-7340Jqliwu Purple Cap SARS-CoV-2 VaccinationGeneric ProviderNOHermann Area District HospitalJcgihqzrrr47-24-6439Gxhmxzhuscet Conjugate PCV 20Edludy Emerson MD Work Phone: [facility] HospitalXrnyolefgp20-44-0779Jybamilly, Seasonal, Quadrivalent, AdjuvantedTeo Al MD Work Phone: [facility] Work Phone: [phone] virus vaccine, unspecified formulationTeo Al MD Work Phone: [facility]09-24-2023SARS-COV-2 (COVID-19) vaccine, mRNA, spike protein, LNP, PF, valente-sucrose, 30 mcg/0.3 mLStanley Emerson MD Work Phone: [facility] HospitalCilruieirw39-33-5496nnkfggofi, high dose seasonal, preservative-freeTeo Al MD Work Phone: [facility] Work Phone: [phone] Bivalent Booster VaccinationStanley Emerson MD Work Phone: [facility] HospitalJsbwdkauqh83-27-8370Hpmnet COVID-19 Vac Bivalent 30 MCG/0.3ML Intramuscular SuspensionStanley Emerson Work Phone: [facility]10-22-2022influenza virus vaccine, unspecified formulationPakettering health springfield SAMUELS [facility] [place] 024130-22-2022influenza, seasonal, injectableEdludy Emerson Work Phone: [phone]-UccgvGillette Children's Specialty Healthcare 250 DO Work Phone: [phone] High-Dose Quadrivalent 0.7 ML Intramuscular Suspension Prefilled SyringeEdludy Emerson Work Phone: [phone]-EoozzGillette Children's Specialty Healthcare 250 DO Work Phone: [phone] virus vaccine, unspecified formulationJENNENCOMPASS HEALTH RE[facility] JOSSELIN [facility]05-11-2022Comirnaty 30 MCG/0.3ML Intramuscular SuspensionEdludy Emerson Work Phone: [phone]-FxboqGillette Children's Specialty Healthcare 250 DO Work Phone: [phone]-88 Cristal Mckeon (Pfizer)MD Stanley Emerson Work Phone: [facility]05-11-2022SARS-CoV-2 mRNA (rxrafwsdtuf-slzh-tivmkyb) vaccineJEERICA OMALLEY [facility]05-11-2022SARS-CoV-2, UnspecifiedEdludy Emerson MD Work Phone: [facility] HospitalIikortbekk59-20-1690itsaltorecag polysaccharide vaccine, 23 valentEdludy Emerson Work Phone: [facility]09-30-2021influenza virus vaccine, unspecified formulationPaCharles River Hospital [facility]09-30-2021influenza, injectable, quadrivalent, preservative freeEdludy Emerson Work Phone: [phone]-XlgoaHendricks Community Hospital 250 DO Work Phone: [phone]-GnlXFbor COVID-19 Vacc 30 MCG/0.3ML Intramuscular SuspensionStanley Emerson Work Phone: [facility] For RehabilitationComment on above:Result Comment: 2022-06-10: UWD0130-14-2598exsavupxt, high dose seasonal, preservative-freeTeo Al MD Work Phone: [facility] Work Phone: [phone]-ExfKAaki COVID-19 Vacc 30 MCG/0.3ML Intramuscular SuspensionSatnley Emerson Work Phone: [facility]02-12-2021Pfizer-BioNTech COVID-19 Vacc 30 MCG/0.3ML Intramuscular SuspensionStanley Emerson Work Phone: [facility]-29-2020influenza virus vaccine, unspecified formulationHEATHER OMALLEY [facility]-29-2020influenza, injectable, quadrivalent, preservative freeStanley Emerson MD Work Phone: [facility]Ceommokdwd[facility]-26-2926Qcnbxgob, quadrivalent, recombinant, injectable influenza vaccine, preservative freeStanley Emerson Work Phone: [phone]-[facility]vbss[facility] DO Work Phone: Payers DatePayer CategoryPayerPolicy ID2024Self-[id number] 2016Medicare supplemental policy (as second payer)[employer] MEDICARE SUPPLEMENT [id number] Health [id number] 2011Medicare [id number] [id number] Health [id number] 2.16.840.1.715623.3.579.[id number] 2.16.840.1.639926.3.57[id number] 2.16840.1.894739.3.579.2.14663-08-5045Zyefogs2012809 2.16840.1.372893.3.579.2.24349-21-6354Fzpwmos6925970 2.840.1.003808.3.579.[id number] 2.0.1.116353.3.57[id number] 2.840.1.515884.3.579.2.66984-82-4502Vuunnab2149104 2.840.1.155358.3.579.2.2[id number] 2.840.1.897788.3.579.2.[id number] 2.840.1.095701.3.579.2.24369-95-7556Fuwcuoe901707599 2.840.1.329807.3.579.2.27500-08-0296Mixhpaz872171131 2.840.1.081724.3.579.2.26147-90-2836Jtygqxv955754111 2.840.1.003464.3.579.2.46300-54-7413Tojrkna928196596 2.840.1.122242.3.579.2.54159-45-6615Fjvyefn011441510 2.840.1.218212.3.579.2.68000-65-3175Bbkvqio238186985 2.16840.1.992285.3.579.2.45023-59-6002Ukjqlxh04815775 2.840.1.497257.3.579.2.05131-46-9431Ahhcsja65849942 2.0.1.420919.3.579.2.63909-21-4865Yrgsjvq58521078 2..1.846736.3.579.2.33012-64-4544Mvhzfbv80153225 2.0.1.647826.3.579.2.13930-91-8160Ditcjby70589114 2..1.312789.3.579.2.46967-02-1352Jurttxy95175686 2.0.1.739415.3.579.2.77286-86-0716Ovgkagd21181723 2..1.003373.3.579.2.89583-85-3526Rdsrhrc64720788 2..1.705128.3.579.2.16325-24-0531Pwsrnir49051906 2..1.506315.3.579.2.28782-57-3901Prbvkro38221306 2..1.605585.3.579.2.39919-32-3210Tokbvtf57855487 2.0.1.822159.3.579.2.96892-04-1785Qiakfye09158413 2.840.1.854245.3.579.2.80709-28-4096Neqaids13935342 2.16.840.1.913802.3.579.2.78783-95-9749Uihhpcw22528794 2.0.1.567198.3.579.2.07571-33-9189Wfogbvw87203722 2.16840.1.990410.3.579.2.99110-46-3865Gklvxli35682594 2.0.1.583171.3.579.2.09581-37-6180Zovtikn26788838 2.0.1.442974.3.579.2.201179-52-0038Usqjwdm11035338 2.0.1.892655.3.579.2.578142-84-8401Hmhcrfx62028667 2..1.263067.3.579.2.298135-50-9355Geusrsg2591840 2.0.1.966811.3.579.2.286968-52-1794Vswsjcv5245623 2.0.1.561592.3.579.2.695557-75-6510Vxfnwxx5248283 2..1.611057.3.579.2.270524-70-0645Wpqsxaa1879710 2..1.448683.3.579.2.683313-09-9885Wcvzadv4602240 2.0.1.573157.3.579.2.626218-65-0117Zjdyutw7306188 2.840.1.169679.3.579.2.083331-70-6304Rtwndlp1129759 2.840.1.962933.3.579.2.707925-49-2120Mqjuxwt1139801 2.0.1.950037.3.579.2.183794-12-9415Ogvjtgm73362131 2.16840.1.777190.3.579.2.30044-45-9785Zwvwsod56508540 2.16840.1.919807.3.579.2.78804-50-8614Iycsrpk92179543 2.840.1.671914.3.579.2.11565-40-1051Zmczrho75612065 2.0.1.286571.3.579.2.17595-77-6773Gctavck64691045 2.0.1.918524.3.579.2.83176-16-6710Usmlotc212079087 2.0.1.521560.3.579.2.655873-11-1178Orkqhkt762160981 2.840.1.163981.3.579.2.503553-22-4126Qtgntev842995753 2.0.1.622853.3.579.2.223976-76-9627Xjybkev293366372 2.0.1.597479.3.579.2.830403-14-3709Lzvqrbn189356319 2..1.566427.3.579.2.324337-89-0368Septxsh19353884 2.0.1.500339.3.579.2.90199-82-7474Dhqpvhb14375546 2.840.1.489183.3.579.2.47648-66-8229Vupctdg89410941 2.16840.1.702618.3.579.2.26653-17-6242Ygacwpj12363314 2.840.1.603047.3.579.2.93578-41-4995Ctiozqg39254302 2.0.1.958850.3.579.2.21987-16-0187Mseouru68786589 2.0.1.001155.3.579.2.14302-43-1294Okhxbmo35312732 2..1.037471.3.579.2.727MedicareMedicare [id number]-283u-[id number]-pyp52[id number] 085m0869-x9ih-7197-r89s-7764193xl17cLphzdrh20185093 2..1.880981.3.579.2.191Jrcpyrq93456936 2..1.124992.3.579.2.531 Gdyyvci17256823 2..1.316822.3.579.2.567Murnjsk01903271 2..1.857455.3.579.2.026Fbhytvc78926281 2..1.415716.3.579.2.531 Pntsbam95964259 2..1.274133.3.579.2.059Uuernlm23732538 2..1.506785.3.579.2.867Cbwhvsb11661373 2..1.380863.3.579.2.531 Jkojhdv41496688 2..1.382325.3.579.2.579Gqegqfy85442951 2..1.525164.3.579.2.531 Social History DateTypeDetailFacilityStart: 02-10-2024 End: 18-10-8676Uwnou caffeine consumptionDaily caffeine consumptionMP-[facility] DO Work Phone: Comment on above:3-4 cups coffee daily;05/17/23 quit; 1/2 dozen cigarettes;Start: 06-11-2022 End: 82-65-0038Xuwousr smoking statusHeavy tobacco smoker (finding)[facility] 02[facility]10[facility]24 End: 74-10-1626Vvj [facility] 12-31-1965 End: 42-34-0681Qdqzwjr smoking status NHISSmoker (finding)[facility] 88-32-2042Fqv [facility] 07-[facility]2022 End: 18-22-1506Jhcrbol smoking status NHISEx-smoker (finding)[facility]: 48-51-9509Qbcuule smoking statusNeverExecutive [facility] of [facility]kyStart: 29-22-7612Fgybrzo of tobacco use Cigarette SmokerUnSt. Francis Hospital Work Phone: Start: 01-29-2024 End: 50-49-2442Vtxchri use and exposureSmokeless tobacco non-userUnSt. Francis Hospital Work Phone: Start: 02-24-2024 End: 52-95-9781Cmgnvnjkd beverage intakeLifetime non-drinker (finding)[facility] Work Phone: Start: 35-00-4718Qpk assigned at birthNot on file [facility] Work Phone: Start: 01-31-2024 End: 62-13-7630Iupdbjbe to SARS-CoV-2 (event)Not sureUnSt. Francis HospitalWithin the last year, have you been afraid of your partner or ex-partner?NoNOMS HealthcareAre you now , , , , never or living with a partner?MarriedNOMS HealthcareHow often to you have a drink containing alcohol?NeverNOMS HealthcareDo you feel stress - tense, restless, nervous, or anxious, or unable to sleep at night because yourmind is troubled all the time - these days [OSQ]To some extentNOCA Healthcare(I/We) worried whether (my/our) food would run out before (I/we) got money to buy more. Never trueNOCA HealthcareStart: 12-22-2009 End: 01-10-4663TmaDhai (finding)[facility] HospitalHow often do you need to have someone help you when you read instructions, pamphlets, or other written material from your doctor or pharmacy [SILS]AlwaysNOCA Healthcare Sexual OrientationExecutive [facility] of [facility] Do you feel stress - tense, restless, nervous, or anxious, or unable to sleep at night because yourmind is troubled all the time - these days [OSQ]Only a littleNOCA HealthcareStart: 17-07-4988Qscjbcwpi beverage intakeEx-drinker (finding)[facility] Medical Equipment Procedure CodeEquipment CodeEquipment Original TextEquipment IdentifierDates Percutaneous endovascular repair of abdominal aortic aneurysm (AAA)Abdominal aorta endovascular stent-graft()[id number])[id number] FDA Start: 91-58-6014Ntexhjjydath endovascular repair of abdominal aortic aneurysm (AAA)Abdominal aorta endovascular stent-graft ()[id number] FDAStart: 18-30-9815Hyfdzqhjtcyw endovascular repair of abdominal aortic aneurysm (AAA)Abdominal aorta endovascular stent-graft()[id number])[id number] FDAStart: 50-91-6093Dkhrhitgenju endovascular repair of abdominal aortic aneurysm (AAA) Soft-tissue/mesh anchor, non-bioabsorbable ()[id number](10)[id number] FDAStart: 39-78-4529XN STENT JERZY FRONTIER 3.0 X 38FDAStart: 16-05-9749GY STENT JERZY FRONTIER 3.0 X 38FDAStart: 75-39-4820NA STENT JERZY FRONTIER 3.0 X 38FDAStart: 88-91-7011VJ STENT JERZY FRONTIER 3.0 X 38FDAStart: 40-80-1015AE STENT JERZY FRONTIER 3.0 X 38FDAStart: 28-42-3735VJ STENT JERZY FRONTIER 3.0 X 38FDAStart: 74-49-9648XZ STENT JERZY FRONTIER 3.0 X 38FDAStart: 85-46-1254HF STENT EJRZY FRONTIER 3.0 X 38FDAStart: 43-09-6941VU STENT JERZY FRONTIER 3.0 X 38FDAStart: 39-60-6543MH STENT JERZY FRONTIER 3.0 X 38FDAStart: 06-69-9917Pxhitlkz peripheral artery stent, bare-metal()[id number](50)[id number] FDAStart: 93-13-8091Medgxvvy peripheral artery stent, bare-metal()[id number](21)[id number])[id number] FDA Start: 15-99-6972LC STENT JERZY FRONTIER 3.0 X 38FDAStart: 01-16-2024 Goals DatePatient GoalDesired Activity/State Functional Status JfsyUksqbcuhfrTnvcjeJjtnjwrk13-15-1306Ltfbmvmhxb /62[facility] Work Phone: 1(407) 478-223611374968-65-3452Pemnt signs63 03/29/2025 10:56 AM Anjel Palacios, [facility] Work Phone: 1(510) 127-518411256151-55-6462XtfnkxsmaoOhioHealth Marion General Hospital Work Phone: 1(475) 222-322902077000-05-9954Hurvikbdzk StatusN/AExec[facility] of [facility]12-19-2024Patient Health Questionnaire 2 item (PHQ-2) [Reported]Christian HospitalHqithyfjgm76-38-0336Dmufakbmrd StatusN/A[facility]08-30-2024Functional status [facility] Work Phone: 1(154) 303-394208-07446338-81-7671Ijmie score [AUDIT-C]0 12/31/2023 8:57 AM EDT Dora Santiago LPNNOMS Hjzxtxporq35-77-5366Qgrkuqb Health Questionnaire 2 item (PHQ-2) [Reported][facility] Htofuofong44-22-7519Fwudeonfig StatusN/A[facility]02-05-2024Functional StatusN/A [facility]01-16-2024Functional StatusN/AFNationwide Children[facility] Hospital10-17-2023Functional StatusN/A[facility]07-18-2023Functional StatusN/A [facility]04-26-2023Functional StatusN/A[facility]03-08-2023 Functional StatusN/A[facility] 23-66-3748Iccfhawcgr statusPatient at [facility] Work Phone: [phone]) [phone]ncgcyl StatusN/AExec[facility]12-22-2022Functional statusPatient Not at [facility] Work Phone: [facility] Mental Status NpvfIrxudxmqdlTxyulxAhpncqnc98-00-1367Cjruwwktg functionCognitive Status Patient is Progressing Toward [facility] Work Phone: [phone]) [phone]rurxrmhp functionCognitive Status [facility] at [facility] Work Phone: 1(677) [phone]Cyuofcpot functionCognitive Status [facility] at [facility] Work Phone: Clinical Notes 06-04-2022 to 03-31-2025 Note Date & ErsbFlxkHlkfxpej18-81-6836 Hospital Discharge instructions Patient Education 03/31/2025 15:52:16 Hematuria, Adult Hematuria, Adult Hematuria is blood in the urine. Blood may be visible in the urine, or it may be identified with a test. This condition can be caused by infections of the bladder, urethra, kidney, or prostate. Otherpossible causes include: Kidney stones. Cancer of the urinary tract. Too much calcium in the urine. Conditions that are passed from parent to child (inherited conditions). Exercise that requires a lot of energy. [...] cancers. Follow these instructions at home: Medicines Take lelf-dnz-lnhwdqm and prescription medicines only as told by your health care provider. If you were prescribed an antibiotic medicine, take it as told by your health care provider. Do notstop taking the antibiotic even if you start to feel better. Eating and drinking Drink enough fluid to keep your urine pale yellow. It is recommended that you drink 3 4 quarts (2.83.8 L) a day. If you have been diagnosed with an infection, drinking cranberry juice in addition tolarge amounts of water is recommended. Avoid caffeine, tea, and carbonated beverages. These tend to irritate the bladder. Avoid alcohol because it may irritate the prostate (in males). General instructions If you have been diagnosed with a kidney stone, follow your health care provider's instructions about straining your urine to catch the stone. Empty your bladder often. Avoid holding urine for long periods of time. If you are female: ?After a bowel movement, wipe from front to back and use each piece of toilet paper only once. ?Empty your bladder before and after sex. Pay attention to any changes in your symptoms. Tell your health care provider about any changes or any new symptoms. It is up to you to get the results of any tests. Ask your health care provider, or the department that is doing the test, when your results will be ready. Keep all follow-up visits. This is important. Contact a health care provider if: You develop back pain. You have a fever or chills. You have nausea or vomiting. Your symptoms do not improve after 3 days. Your symptoms get worse. Get help right away if: You develop severe vomiting and are unable to take medicine without vomiting. You develop severe pain in your back or abdomen even though you are taking medicine. You pass a large amount of blood in your urine. You pass blood clots in your urine. You feel very weak or like you might faint. You faint. Summary Hematuria is blood in the urine. It has many possible causes. It is very important that you tell your health care provider about any blood in your urine, even ifit is painless or the blood stops without treatment. Take tsrr-wgr-hsziykv and prescription medicines only as told by your health care provider. Drink enough fluid to keep your urine pale yellow. This information is not intended to replace advice given to you by your health care provider. Make sure you discuss any questions you have with your health care provider. Document Revised: 01/10/2021 Document Reviewed: 01/10/2021 [employer]ang[employer] Patient Education 2023 Dyn. Follow Up Care 03/31/2025 09:35:18 With:TC Boles APRN, RAHUL Reece, URL Address: When: Unknown [facility] 11-06-2025 NotePatient Education Urology Hematuria, Adult Hematuria is [...] these instructions at home: Medicines ??? Take fhzr-yuz-ajaxxlc and prescription medicines only as told by [...] the blood stops without treatment. ??? Take mife-zdo-fjsdvte and prescription medicines only as told by your health care provider. ??? Drink enough fluid to keep your urine pale yellow. This information is not intended to replace advice given to you by your health care provider. Make sure you discuss any questions you have with your health care provider. Document Revised: 01/10/2021 Document Reviewed: 01/10/2021 [employer]angestreet Patient Education ? 2023 Dyn.[facility] 03-29-2025 History of Present illness Narrative* Teo Al MD - 03/29/2025 11:00 AM EST HPI Patient is in the office for follow-up for CAD and previous non-ST elevation microinfarction with ischemic cardiomyopathy. He was seen few months ago by Dr. Montana in consultation for AICD implantationbut the patient apparently changed his mind and does not want to proceed. We discussed that at length today with the patient, his daughter and his . We were hoping that he would except her adviceand reconsider. In the meantime he did not demonstrate any signs of decompensated heart failure or angina pectoris. He developed dementia and has been on Aricept with improvement. He is very hard of hearing, his last echocardiogram in July 2024 showed EF 30-35%. He still has stage IIIb chronic kidney disease based on recent testing. He lost several pounds from last visit with no orthopnea PND orlower extremity edema, no syncope or presyncope. He is on amiodarone for paroxysmal atrial fibrillation his EKG today revealed normal sinus rhythm with IVCD, septal myocardial infarction of undetermined age. Assessment/recommendations: 1-history of non-ST elevation myocardial infarction leading to LAD stenting December 2023 at [facility], continue Plavix, high intensity statin, patient is not on aspirin since he is also on Coumadin 2-post TX paroxysmal atrial fibrillation, currently in sinus rhythm on amiodarone and Coumadin, to be monitored, ECG today revealed QTc interval 462 ms 3- ischemic cardiomyopathy, systolic heart failure stage C functional class II NYHA CHF, GDMT couldnot be initiated due to hypotension in the past, his blood pressure today is reasonable. Ejection fraction remains low at 30-35% based on the echocardiogram July 2024. Patient was referred and evaluated by Dr. Montana for AICD but he decided not to pursue it for unfounded fears about the procedure, we discussed today the procedure and simplicity and the safety and the need for it. He may reconsiderhis decision. He was turned off by proposal of performing AICD implantation that is not the standard way of performing it 5- status post AAA stenting with EVAR 2022 with no complications. 6- chronic kidney disease stage IIIb. Patient's follows with nephrology, GFR 36 mL/min as of February 2025 7-hyperlipidemia on maximal dose atorvastatin, well-tolerated and follows low- fat diet 8- history of TIA, no recurrences while on statin and Plavix 9-patient was diagnosed with dementia in September 2024 and currently on Aricept and Seroquel with improvement followed by PCP 10-colon polyp large enough to require surgery, he is refusing follow-up at the [facility] 11- history of bladder cancer followed by urology, no intervention is planned, no hematuria recently 12-high risk medication with warfarin and amiodarone to be monitored closely, amiodarone testing revealed no toxicity. CBC is stable 13-hyperthyroidism on Tapazole, TSH that was done 2 weeks ago was up to 16 indicating hypothyroidism, will reduce Tapazole down to 5 mg daily and follow the level in few weeks ROS Review of system essentially unremarkable Vitals: 03/29/25 1056 BP: 110/62 BP Location: Left arm Patient Position: Sitting Pulse: 63 Weight: 88.5 kg (195 lb) Height: 1.88 m (6' 2 ) [...] mg, oral, Daily atorvastatin (LIPITOR) 80 mg, oral, Nightly cephalexin (Keflex) 250 mg capsule TAKE 1 CAPSULE BY MOUTH FRIDAY, FRIDAY AND FRIDAY clopidogrel (PLAVIX) 75 mg, oral, Daily donepezil (Aricept) 10 mg tablet Daily at bedtime ferrous sulfate 325 mg, Daily with breakfast fexofenadine (ANAHI) 180 mg, Daily RT furosemide (LASIX) 40 mg, Daily inulin (Fiber Gummies) 2 gram tablet,chewable Chew and swallow. Klor-Con M20 20 mEq ER tablet 20 mEq, oral, Daily, DO NOT CRUSH OR CHEW methIMAzole (TAPAZOLE) 5 mg, oral, Daily metoprolol succinate XL (TOPROL-XL) 25 mg, oral, Daily, Do not crush or chew. multivitamin (Multiple Vitamins) tablet 1 tablet, Daily nitroglycerin (NITROSTAT) 0.4 mg, sublingual, Every 5 min PRN QUEtiapine (SEROQUEL) 25 mg, Nightly warfarin (Coumadin) 2 mg tablet TAKE 1 TO 2 TABLETS BY MOUTH DAILY DIRECTED BY MEDICATION MANAGEMENT CLINIC warfarin (Coumadin) 5 mg tablet Take one tablet daily in the evening. Follow with eva coumadinclapolonia. Patient will take coumadin and eliquis together for 3 days only Assessment/Plan 1. Paroxysmal atrial fibrillation (Multi) ECG 12 Lead Thyroid Stimulating Hormone Thyroid Stimulating Hormone 2. High risk medication use Thyroid Stimulating Hormone Thyroid Stimulating Hormone 3. Cardiomyopathy, ischemic Follow Up In Cardiology Follow Up In Cardiology 4. Coronary artery disease involving [place] coronary artery of [place] heart without angina pectorisnitroglycerin (Nitrostat) 0.4 mg SL tablet 5. S/P PTCA (percutaneous transluminal coronary angioplasty) 6. Essential hypertension 7. Dyslipidemia 8. Stage 3b chronic kidney disease (Multi) 9. Transient cerebral ischemia, unspecified type 10. Former smoker 11. Body mass index (BMI) 25.0-25.9, adult 12. Hyperthyroidism methIMAzole (Tapazole) 5 mg tablet atorvastatin (Lipitor) 80 mg tablet Scribe Attestation By signing my name below, [...] exam, discussion and plan. documented in this encounterOhioHealth [facility] Hospital Work Phone: 1(155) 682-746811-04-2025 Instructions* Patient Instructions* Ruth Mojica LPN - 03/29/2025 11:00 AM EST Please bring all medicines, vitamins, and herbal supplements with you when you come to the office. Prescriptions will not be filled unless you are compliant with your follow up appointments or have a follow up appointment scheduled as per instruction of your physician. Refills should be requested at the time of your visit. BMI was above normal measurement. Current weight: 88.5 kg (195 lb) Weight change since last visit (-) denotes wt loss -5 lbs Weight loss needed to achieve BMI 25: 0.7 Lbs Weight loss needed to achieve BMI 30: -38.2 Lbs Provided instructions on dietary changes Provided instructions on exercise. Aicd discussed Amiodarone follow up per routine Tapazole 5 mg one time daily documented in this encounterOhioHealth [facility] Hospital Work Phone: 1(350) 205-724506-24-2025 Hospital Discharge instructions Patient Education 11/16/2024 14:35:51 [...] provider. Document Revised: 08/01/2021 Document Reviewed: 04/27/2021 [employer] Patient Education 2021 Dyn. 11/16/2024 14:35:49 Cancer Screening for Males Cancer [...] if anything looks unusual. Males with a xdlmfs-vgwi-jnwtgu risk for skin cancer may want to see a hide and skin classer (electric truck crane operator) for an annual body check. Where to find more information [place] [employer]: cancer.org Centers for Disease Control and Prevention: cdc.gov National Cancer Harvey: cancer.gov Contact a health care provider if: [...] provider. Document Revised: 05/20/2023 Document Reviewed: 12/02/2022 ElseLindsey Shell Patient Education 2023 Dyn. Follow Up Care 10/26/2024 10:10:17 With:BARIL CASILLAS, Katia Macias, URL Address: [facility] [address], [place] [address]- When: Unknown [facility] 06-24-2025 NotePatient Education Oncology Cancer Screening for [...] if anything looks unusual. Males with a jqkhzj-xpjq-fffovr risk for skin cancer may want to see a hide and skin classer (dermatologi (more content not included)...[facility]06-17-2025 History of Present illness Narrative* [...] police. He had a rx ofseraquil from [facility] and she put him back on [...] exacerbation. We discussed and she has a wfxk-clz-tstdfhk hydrocortisone cream at home. For now I [...] by mouth at bedtime documented in this encounterChristian HospitalQafhqrwggw04-34-8459 History of Present illness Narrative* Stanley Emerson MD - 10/14/2024 2:30 PM EDT Images from the original note were not included. Patient ID: Alex Anderson is a 78 y.o. male who presents for: Flowsheet Row Patient Outreach from 10/06/2024 in [facility] with Joi Zhang LPN Hospital Information ED, Hospital or [facility] Facility Discharge? Hospital Patient has been contacted within two business days of discharge Yes Diagnosis Community acquired pneumonia of lower lobe of lung , Lower extremity edema Edema, Delirium due to another medical condition Discharge Date 10/05/24 Discharged To: Home Setting Discharge [facility] Engagement Call Start Time 1207 Admission Date [...] have any upcoming specialty appointments? Yes [10/08 Foot Roentgenologist, 10/11 outpatientsurgery for aortic aneuysm left knee] [...] in ER and Hospital. Pt arrived to [facility] ER d/t [facility] crisis line stating to go because of pts increased delusions, hallucinations, and suicidal ideation. found pocket knife on pt as well. Pt transferred to [facility]. Pt positive for metapneumovirus, Urine cultures [...] transition of care note is reviewed. a ivug-hq-bqny evaluation is done today. Medical decision making is complex in degree. 3. Lower extremity edema Chronic problem, stable, we will monitor at this time. 4. Delirium due to another medical condition Chronic problem that is currently stable and manageable. It was worse when he was acutely ill. No further adjustments. documented in this [facility]05-21-2025 History of Present illness Narrative* Stanley Emerson MD - 10/13/2024 8:31 AM EDT Reviewed the procedure note. Updated the medical record. documented in this [facility]05-16-2025 History of Present illness Narrative* [...] future interventions. Family holds healthcare power of cellar packer. DNR status temporarily revoked during procedure. Follow-up [...] I discussed arrhythmia, ECG, shared decision making, Garland decision tool, informed consent, treatment options, risk, [...] THE PRESENCE OF DR. RUBY MONTANA MD, [facility], [facility] I, , personally performed the services described [...] DNR and POA forms, shared decision making, Garland decision tool, and informed consent [1] Social History Socioeconomic History Marital status: Tobacco Use Smoking status: Former Types: Cigarettes Smokeless tobacco: Never Substance and Sexual Activity Alcohol use: Never Drug use: Never Social Drivers of Health Financial Resource Strain: Low Risk (12/31/2023) Received from [facility] Overall Financial Resource Strain (CARDIA) Difficulty of Paying Living Expenses: Not hard at all Food Insecurity: Patient Unable To Answer (10/02/2024) Received from [facility] Hunger Vital Sign Worried About Running Out of Food in the Last Year: Patient unable to answer Ran Out of Food in the Last Year: Patient unable to answer Transportation Needs: Patient Unable To Answer (10/02/2024) Received from [facility] PRAPARE - Transportation Lack of Transportation (Medical): Patient unable to answer Lack of Transportation (Non-Medical): Patient unable to answer Physical Activity: Inactive (12/31/2023) Received from [facility] Exercise Vital Sign Days of Exercise per Week: 0 days Minutes of Exercise per Session: 0 min Stress: Stress Concern Present (12/31/2023) Received from [facility] [employer] [facility] [employer] [facility] - Occupational Stress Questionnaire Feeling of Stress : To some extent Social Connections: Moderately Isolated (12/31/2023) Received from [facility] Social Connection and Isolation Panel [NHANES] Frequency of Communication with Friends and Family: More than three times a week Frequency of Social Gatherings with Friends and Family: More than three times a week Attends [facility]: Never Active Member of Clubs or Organizations: No Attends Club or Organization Meetings: Never Marital Status: Intimate Partner Violence: Not At Risk (12/31/2023) Received from [facility] Humiliation, Afraid, Rape, and Kick questionnaire Fear of Current or Ex-Partner: No Emotionally Abused: No Physically Abused: No Sexually Abused: No Housing Stability: Patient Unable To Answer (10/02/2024) Received from [facility] Housing Stability Vital Sign Unable to Pay for Housing in the Last Year: Patient unable to answer Homeless in the Last Year: Patient unable to answer [2] Family History Problem Relation Name Age of Onset Other (bowel obstruction) Mother Brain cancer Father documented [facility] Work Phone: 1(686) 840-274805-16-2025 Instructions* Patient Instructions* Sy Dickinson LPN - 10/08/2024 3:00 PM EDT Images from the original note were not included. Vascular surgery needs to tell us when he can come off Plavix, and for how long. Please call us as soon as you have this answer, , option #4. Pre-Procedure Patient Information You have been scheduled for: EV- ICD Implant At: [facility] With: Dr. Montana and Dr. Capone Date [...] day before your scheduled procedure, please call [phone]. 3. Please bring a current list of [...] any questions, please contact the office at [phone]. Follow up 1 week after for a wound care check appointment documented in this [facility] Work Phone: [phone]) 294-719605-13-2025 History of Present illness Narrative* Jessy Wayne RN - 10/05/2024 1:34 PM EDT AVS reviewed with and patient. All questions answered. Leg bag attached to zapien. IV removed, no complications. Waiting for meds to bed to be delivered. * Servando Hall MD - 10/05/2024 9:46 AM EDT [facility] [place] 10/05/2024 9:55 AM Name: Alex Anderson Acct: [id number] Room: Day: 3 Admit Date: 10/02/2024 10:30 [...] are in and will be reviewed from [place]. Brief History: 78 yo male admitted to [...] COPD, anemia, AAA post stent, hypothyroidism. Per [facility] records patient was brought in to [place] ED by due to increasing delusions, hallucinations [...] screening positive for tricyclic antidepressant. Transferred to [facility] for psychiatric assessment and potentially [facility] admission following medical clearance. On admit, patient is ANO x 2, knows his name date, birthday, president. Able to list some family members. Is aware he is in a hospital in [place]. He endorses increasing bilateral lower extremity weakness [...] - dementia versus delirium -Patient transferred from [facility] due to declining mental status and increasing delusionsand hallucinations. Per chart review patient's was increasingly concerned for the last 2 weekshe has had more hallucinations and delusions, concerned of people coming to find him. Recently obtained a pocket knife that she is unsure how he got. Per chart review endorsed some suicidal ideation -CT head in ED [place] 10/01 reviewed no acute intracranial abnormality -UDS 10/01 [place] positive for tricyclic's -On admit patient denies [...] frequency with urination - In ED at [place], urinalysis small leukocyte esterase moderate bacteria 10/01; BUN 26 creatinine 2.01 -> creatinine 1.9 -[place] urine culture received 10/05. Positive for Klebsiella [...] review unsure if it was replaced at [place] A-fib - Patient had some runs of [...] asdocumented by the resident. Urine culture from [facility] growing Klebsiella and Enterobacter sensitive to Cipro. Chronic Zapien. Follow-up urology as outpatient. CT head from [place], negative. Varicose veins, vascular surgery follow-up as outpatient. Hypokalemia- replaced * Jessy Wayne RN - 10/05/2024 9:21 AM EDT Oral potassium replaced. * Aristeo Gallardo [facility] - 10/05/2024 8:07 AM EDT Pharmacy Note [...] PT/INR while inpatient. Satish Gallardo PharmD, [facility] 10/05/2024 8:05 AM * Leticia John OTR/Romina - 10/04/2024 2:41 PM EDT [facility] OCCUPATIONAL THERAPY MISSED TREATMENT NOTE INPATIENT Date: 10/04/24 Patient Name: Alex Anderson Room: : 1945 (78 y.o.) Gender: male REASON FOR MISSED TREATMENT: 10/04/24 - Other - Palliative Care NEWS ASSISTANT in room initially. Checked back at 1430, with pt working with physical therapy. PCT reported needing to get EKG once pt has completed PT. OT will continue to follow and check back as time permits. 1352; 1430 * Filemon Cerda RN - 10/04/2024 12:10 PM EDT Patient Alert and Oriented x 4, per Jessy CHAN. Bedside manufacturing sales representative removed, Telesitter placedat bedside. * Jessy Wayne [...] periodically make illogical statements in response to automobile service writer's assessment questions and thought process was [...] Patient initially presented to the ED from [facility]. He was presented to [facility] for potential admission, but declined as his symptoms were consistent with delirium. Noted he was placed perry application for emergency admission by [place] ED secondary to patient'sbehavior at home. per [...] like him to see Dr. Mcarthur in [place]. Per review of documentation, patient medications managed [...] mEq, 40 mEq, Oral, PRN OR potassium [id number] mEq/100 mL IVPB (Peripheral Line), 10 mEq, [...] psychosocial and environmental stressors PLAN Admission to [facility] is not warranted No medication changes today [...] agree with assessment. The patient was seen [id number]. The patient is pleasant on approach. He [...] Hall MD - 10/04/2024 9:30 AM EDT [facility] 10/04/2024 9:40 AM Name: Alex Anderson Acct: [id number] Room: IP Day: 2 Admit Date: 10/02/2024 [...] COPD, anemia, AAA post stent, hypothyroidism. Per [facility] records patient was brought in to [place] ED by due to increasing delusions, hallucinations [...] screening positive for tricyclic antidepressant. Transferred to [facility] for psychiatric assessment and potentially [facility] admission following medical clearance. On admit, patient is ANO x 2, knows his name date, birthday, president. Able to list some family members. Is aware he is in a hospital in [place]. He endorses increasing bilateral lower extremity weakness [...] - dementia versus delirium -Patient transferred from [facility] due to declining mental status and increasing delusionsand hallucinations. Per chart review patient's was increasingly concerned for the last 2 weekshe has had more hallucinations and delusions, concerned of people coming to find him. Recently obtained a pocket knife that she is unsure how he got. Per chart review endorsed some suicidal ideation -CT head in ED [place] 10/01 reviewed no acute intracranial abnormality -UDS 10/01 [place] positive for tricyclic's -On admit patient denies [...] frequency with urination - In ED at [place], urinalysis small leukocyte esterase moderate bacteria 10/01; [...] review unsure if it was replaced at [place] A-fib - Patient had some runs of [...] onc as outpatient Neuro consulted * Constantin Goodwin, [facility] - 10/04/2024 9:09 AM EDT Pharmacy Note [...] PT/INR while inpatient. Constantin Goodwin PharmD. [facility] 10/04/2024 9:09 AM * Heather Solis, AQUATIC LABORER - PRE BILLING CLINICIAN - 10/03/2024 5:44 PM EDT Department of [...] periodically make illogical statements in response to automobile service writer's assessment questions and thought process was [...] to not meet criteria for admission to [facility] due to delirium and is not experiencing [...] Patient initially presented to the ED from [facility]. He was presented to [facility] for potential admission, but declined as his symptoms were consistent with delirium. Noted he was placed perry application for emergency admission by [place] ED secondary to patient'sbehavior at home. per [...] like him to see Dr. Mcarthur in [place]. Per review of documentation, patient medications managed [...] mEq, 40 mEq, Oral, PRN OR potassium [id number] mEq/100 mL IVPB (Peripheral Line), 10 mEq, [...] psychosocial and environmental stressors PLAN Admission to [facility] is not warranted No medication changes today [...] are inherent in voice recognition technology. * MarreroKaleb, PT - 10/03/2024 3:16 PM EDT Physical Therapy [facility] Physical Therapy Evaluation Date: 10/03/24 Patient Name: Alex Anderson Room: Account: [id number] : 1945 (78 y.o.) Gender: male Discharge [...] of pneumonia, UTI, altered mental status. Per [facility] records patient was brought in to [place] ED by due to increasing delusions, hallucinations [...] screening positive for tricyclic antidepressant. Transferred to [facility] for psychiatric assessment and potentially [facility] admission following medical clearance. Referral Date : [...] Unable to demonstrate understanding Functional Outcome Measures [facility] Basic Mobility - Inpatient How much help [...] climbing 3-5 steps with a railing?: Total [facility] Inpatient Mobility Raw Score : 16 [facility] Inpatient T-Scale Score : 40.78 Mobility Inpatient [facility] 0-100% Score: 54.16 Mobility Inpatient [facility] G-Code Modifier : CK Goals Patient Goals [...] 2:03 PM EDT New consult to Neurology. Inventory Audit Clerk notifed Moris Barragan MD. * Mar Gonzalez RN - 10/03/2024 9:03 AM EDT Patient potassium is low. Potassium oral 40mEq was given per PRN orders * Servando Hall MD - 10/03/2024 8:50 AM EDT [facility] [place] [place] 10/03/2024 9:59 AM Name: Alex Anderson Acct: [id number] Room: Day: 1 Admit Date: 10/02/2024 10:30 [...] COPD, anemia, AAA post stent, hypothyroidism. Per [facility] records patient was brought in to [place] ED by due to increasing delusions, hallucinations [...] screening positive for tricyclic antidepressant. Transferred to [facility] for psychiatric assessment and potentially [facility] admission following medical clearance. On admit, patient is ANO x 2, knows his name date, birthday, president. Able to list some family members. Is aware he is in a hospital in [place]. He endorses increasing bilateral lower extremity weakness [...] - dementia versus delirium -Patient transferred from [facility] due to declining mental status and increasing delusionsand hallucinations. Per chart review patient's was increasingly concerned for the last 2 weekshe has had more hallucinations and delusions, concerned of people coming to find him. Recently obtained a pocket knife that she is unsure how he got. Per chart review endorsed some suicidal ideation -CT head in ED [place] 10/01 reviewed no acute intracranial abnormality -UDS 10/01 [place] positive for tricyclic's -On admit patient denies [...] frequency with urination - In ED at [place], urinalysis small leukocyte esterase moderate bacteria 10/01; [...] AM EDT New consult for Palliative Care. Inventory Audit Clerk notified Heather Romo NP. * Aidee Kearns [...] tonight. Daily PT/INR while inpatient. Aidee Kearns, PharmD, [facility] * Gi Berrios RN - 10/02/2024 9:00 PM EDT RN attempted to finish patients admission questions, patient was unable to answer. * Tamy Palacios RN - 10/02/2024 6:03 PM EDT Inventory Audit Clerk notified Palliative care of new consult placed. [...] at 1.9 (goal 2-3). Patient follows with [place] [facility]. Patient's first time at [facility], sparse documentation in [facility]. Documentation from transferring hospital states patient is on coumadin 2 mg daily. Will schedule coumadin 2 mg tonight, has not received medications since last night. Daily PT/INR while inpatient. Thank you for the consult. Will continue to follow. Aidee Kearns, PharmD, [facility] * Cesar Melendez - 10/02/2024 11:43 AM EDT New consult to Urology. Inventory Audit Clerk notified Goldy Garland MD. * Cesar Melendez - 10/02/2024 11:41 AM EDT New consult to Psychiatry. Inventory Audit Clerk notified Froy Razo MD. documented [facility] Discharge instructions* Discharge Instructions* Waqar [...] (CD rom and photo on phone) from [facility] with you but it is also uploaded in media in your chart at [facility] - Follow-up with your vascular surgeon [...] Primary Emergency Contact: Estella Anderson Relation: Spouse Human Performance Technologist needed? No Secondary Emergency Contact: Antonio Anderson [...] Assisted Dressing Assisted Toileting Assisted Feeding Independent Acidity Tester Assisted Med Delivery whole Wound Care Documentation [...] cane, walker, and bath bench Other Treatments: [facility] assessment and monitoring. Medication education and monitoring per protocol. Patient's personal belongings (please select all that are sent with patient): Glasses RN SIGNATURE: CASE MANAGEMENT/SOCIAL WORK SECTION Inpatient Status Date: 10/02/2024 Readmission Risk Assessment Score: [facility] RISK OF UNPLANNED READMISSION 2.0 13.1 Total Score Discharging to Facility/ [facility] Address: [address] [place] [address] Dialysis Facility (if applicable) Name: Address: Dialysis Schedule: Phone: Fax: Psychiatry Teacher/Diamond Sizer And Grader signature: PHYSICIAN SECTION Prognosis: Fair Condition at [...] H&P PHYSICIAN SIGNATURE: documented in this encounterBon [facility]04[facility] History of Present illness Narrative* Stanley Emerson MD - 09/21/2024 2:15 PM EDT Images from the original note were not included. Patient ID: Alex Anderson is a 78 y.o. male who presents for: Pt reported to his [facility] Nurse yesterday that pt has been having issues with increased hallucinations and cognitive impairment. Results were looked up in [facility] and there are no recent UA's done [...] Final Protein, UA 09/21/2024 Positive Negative - 2000(20) ++++ mg/dL Final Urobilinogen, UA 09/21/2024 0.2 [...] a gentle exercise program. documented in this encounterChristian [id number] History of Present illness Narrative* Bruce M Al, MD - 09/10/2024 10:00 AM EDT Chief [...] Arrangements are going to be made at [facility]. He will be communicated to through the office in the area for the arrangements to be made. His present medical therapy was left unchanged. Assessment/recommendations: 1-history of non-ST elevation myocardial infarction leading to LAD stenting December 2023 at [facility], continue Plavix, high intensity statin, patient is not on aspirin since he is also on Coumadin 2-post [place] paroxysmal atrial fibrillation, currently back in sinus [...] is recommended and will be arranged at [facility]. 5- status post AAA stenting with [facility] 2022 with no complications. 6- chronic kidney disease stage IIIb. Patient's follows with nephrology, basic metabolic profile isordered 7-hyperlipidemia on maximal dose atorvastatin 8- history of TIA, no recurrences 9- slight overweight, encouragement provided for prudent diet and daily activities 10-colon polyp large enough to require surgery, he is refusing follow-up at the [facility] 11- history of bladder cancer [...] Metabolic Panel 2. Coronary artery disease involving [place] coronary artery of [place] heart without angina pectorisBasic Metabolic Panel Basic [...] exam, discussion and plan. documented in this [facility] Work Phone: 1(440) 464-524404-18-2025 Instructions* Patient Instructions* Ruth Mojica LPN - [...] 03/29 visit as scheduled. documented in this encounterOhio[facility] Work Phone: 1(654) 246-509103-20-2025 Telephone encounter Note* Telephone Encounter - Stanley Emerson MD - 08/12/2024 2:19 PM EDT Entered in error [facility] [id number] Miscellaneous Notes* Telephone Encounter - Stanley Emerson MD - 08/12/2024 2:19 PM EDT Entered in error documented in this encounterChristian [id number] Evaluation note* Diagnosis Onset Date Resolution Status Admit Date Abdominal aortic aneurysm without ruptur e acuteMarch 2024 10:25amAn[facility]acute[facility] 2024 10:25amCHF (congestive heart failure)[facility]University [facility] 2024 10:25amChronic kidney disease, stage 3bacute August 11, 2024 10:25amHyperlipidemiaacuteMar 2024 10:25amHypertensive nephropathyacuteUniversity [facility] 2024 10:25amIron deficiencyacuteMar 2024 10:25amObstructive nephropathyacuteUniversity [facility] 2024 10:25am [facility] Work Phone: 1(181) 619-180503-19-2025 Evaluation note* Diagnosis Onset Date Resolution Status Admit Date Abdominal aortic aneurysm without ruptur e acuteMarch 2024 10:25amAnemiaacuteMarch 2024 10:25amCHF (congestive heart failure)acuteMarch 2024 10:25amChronic kidney disease, stage 3bacute August 11, 2024 10:25amHyperlipidemiaacuteMarch 2024 10:25amHypertensive nephropathyacuteMarch 2024 10:25amIron deficiencyacuteMarch 2024 10:25amObstructive nephropathyacuteMarch 2024 10:25amAneurysm of left popliteal arteryacuteMay 2024 9:09am [facility] Work Phone: 1(915) 579-326403-19-2025 Evaluation note* Diagnosis Onset Date Resolution Status Admit Date Abdominal aortic [facility]ur [facility] 10:25amAnemiaacuteMarch 2024 10:25amCHF (congestive heart failure)acuteSaint [facility] 2024 10:25amChronic kidney disease, stage 3bacute August 11, 2024 10:25amHyperlipidemiaacuteMarch 2024 10:25amHypertensive nephropathyacuteMarch 2024 10:25amIron deficiencyacuteSaint Michael'S Medical Centerch 2024 10:25amObstructive nephropathyacuteSaint [facility] Centerch 2024 10:25amAneurysm of left popliteal arteryacuteMay 2024 9:09amAbdominal aortic aneurysm without ruptureacuteJune 2024 3:51pmAnemiaacuteJune 2024 3:51pmCHF (congestive heart failure)acuteJune 2024 3:51pmChronic kidney disease, stage 3bacuteJune 2024 3:51pmHyperlipidemiaacuteJune 2024 3:51pm Hypertensive nephropathyacuteJune 2024 3:51pmIron deficiencyacuteJune 2024 3:51pmObstructive nephropathyacuteJune 2024 3:51pm [facility] Work Phone: 1(331) 984-132903-06-2025 History of Present illness Narrative* Teo Al [...] days. He was against going to the [facility] to follow-up on colonic polyp as was suggested by his local program aide. He reports no syncope or presyncope his [...] leading to LAD stenting December 2023 at [facility], continue Plavix, high intensity statin, patient is not on aspirin since he is also on Coumadin 2-post [place] paroxysmal atrial fibrillation, currently back in sinus [...] surgery, he is refusing follow-up at the [facility] 11- history of bladder cancer [...] tablet daily in the evening. Follow with [facility]. Patient will take coumadin and eliquis together for 3 days only, Disp: 14 tablet, Rfl: 0 Assessment/Plan 1. Cardiomyopathy, ischemic Follow Up In Cardiology 2. Paroxysmal atrial fibrillation (Multi) 3. High risk medication use 4. Coronary artery disease involving [place] coronary artery of [place] heart without angina pectoris 5. S/P PTCA [...] exam, discussion and plan. documented in this encounterOhioHealth [facility] Hospital Work Phone: 1(581) 996-435003-06-2025 Instructions* Patient Instructions* Pebbles Arcos LPN - [...] through Care Everywhere. * Heart Healthy Diet (Tunisian) documented in this encounterOhioHealth Marion General Hospital Work Phone: 1(834) 509-957202-20-2025 Hospital Discharge instructions Patient Education 07/15/2024 14:05:29 [...] cells. Follow these instructions at home: Take vgif-ypc-cunmtcz and prescription medicines only as told by [...] is important. Where to find more information [place] [employer] (ACS): cancer.org National Cancer Harvey (NCI): cancer.gov Contact a health care provider [...] provider. Document Revised: 04/22/2022 Document Reviewed: 04/22/2022 [employer] Patient Education 2023 Dyn. Follow Up Care 06/01/2024 11:03:36 With:HEATHER OMALLEY PA-C, URL Address: [address] [place] [address] When:Within 1 Month(s) [facility] 02-20-2025 NotePatient Education Oncology Bladder Cancer Bladder [...] Follow these instructions at home: ??? Take abrp-onl-qrvwdaa and prescription medicines only as told by [...] important. Where to find more information ??? [place] [employer] (ACS): cancer.org ??? National Cancer Harvey (NCI): cancer.gov Contact a health care provider [...] This information is n (more content not included)...[facility] 06-07-2024 NotePatient Education Urology Hematuria, [...] these instructions at home: Medicines ??? Take ynzd-lhy-yxbnmah and prescription medicines only as told by [...] the blood stops without treatment. ??? Take zcmf-kmj-vqkvkyx and prescription medicines only as told by your health care provider. ??? Drink enough fluid to keep your urine pale yellow. This information is not intended to replace advice given to you by your health care provider. Make sure you discuss any questions you have with your health care provider. Document Revised: 01/10/2021 Document Reviewed: 01/10/2021 [employer] Patient Education ? 2023 Dyn.[facility] 05-21-2024 History of Present illness [...] described. They are considering consultation at the [facility] for large colonic polyp that [...] leading to LAD stenting December 2023 at [facility], continue Plavix, high intensity statin, patient is not on aspirin since he is also on Coumadin 2-post TX paroxysmal atrial fibrillation, currently back in sinus [...] he is following for that at the [facility]. 11- history of bladder cancer [...] tablet daily in the evening. Follow with [facility]. Patient will take coumadin and [...] Stimulating Hormone 3. Coronary artery disease involving [place] coronary artery of [place] heart without angina pectoris 4. S/P PTCA [...] exam, discussion and plan. documented in this [facility] Work Phone: 1(777) 310-725912-27-2024 Instructions* Patient Instructions* Pebbles Arcos LPN - [...] through Care Everywhere. * Heart Healthy Diet (Tunisian) documented in this [facility] Work Phone: 1(280) 824-135912-19-2024 History of Present illness Narrative* Stanley Emerson [...] Practical Nurse (Family Medicine) [facility] Medicare Annual Visit Over the [...] Do you have a medical power of cellar packer?: No Objective : BP 122/74 Pulse 77 [...] through a living will, durable power of cellar packer for healthcare, or other advanced directives. We [...] on May 29, 2024 documented in this encounterChristian HospitalIifmsusfnr26-82-8748 History of Present illness Narrative* Stanley Emerson [...] to encourage good nutrition. documented in this encounterChristian HospitalNojphrmplg40-27-4036 Hospital Discharge instructions Patient Education 04/06/2024 11:31:42 [...] provider. Document Revised: 08/01/2021 Document Reviewed: 04/27/2021 [employer]ang[employer] Patient Education 2021 Dyn. 04/06/2024 11:28:52 Cancer Screening for Males Cancer [...] if anything looks unusual. Males with a pwtxwe-swiu-uoavyt risk for skin cancer may want to see a hide and skin classer (electric truck crane operator) for an annual body check. Where to find more information [place] [employer] Society: cancer.org Centers for Disease Control and Prevention: cdc.gov National Cancer Harvey: cancer.gov Contact a health care provider if: [...] provider. Document Revised: 05/20/2023 Document Reviewed: 12/02/2022 [employer] Patient Education 2023 Dyn. Follow Up Care 02/25/2024 15:13:08 With:ABRIL CASILLAS, Katia Macias, URL Address: [facility] [address] [place] [address]- When: Unknown [facility] 11-12-2024 NotePatient Education Oncology Cancer Screening [...] if anything looks unusual. Males with a rtwgfu-cygv-czcezu risk for skin cancer may want to see a hide and skin classer (dermatologi (more content not included)...[facility]10-[facility] History of Present illness Narrative* [...] further evaluation or treatment. documented in this encounterChristian HospitalYlaizmrlqg15-16-1822 History of Present illness Narrative* Leanne Soriano [...] m (6' 2 ) [facility] Work Phone: 1(840) 740-209809-24-2024 History of Present illness Narrative* Stanley Emerson [...] 1 each; Refill: 0 documented in this encounterChristian [id number] History of Present illness Narrative* Teo Al MD - 02/10/2024 9:20 AM EDT Subjective Alex Anderson is a 78 y.o. male Chief Complaint Hospital Follow-up HPI 78-year-old white male who recent underwent LAD stenting for anterior STEMI at [facility] by Dr. Pruett. He subsequently developed atrial fibrillation requiring initiation of Eliquis and amiodarone. He was significantly hypotensive after the coronary intervention which prevented from initiation of GDMT for systolic heart failure. His EF was down to 35%. He has mild cognitive impairment. Hedoes have history of bladder cancer followed by [...] leading to LAD stenting December 2023 at [facility], continue Brilinta, high intensity statin, patient is not on aspirin since he is also on Eliquis 2-post TX paroxysmal atrial fibrillation, currently back in sinus [...] medication use 3. Coronary artery disease involving [place] coronary artery of [place] heart without angina pectoris 4. S/P PTCA [...] exam, discussion and plan. documented in this [facility]Ohio[facility] Work Phone: 1(703) 368-385909-17-2024 Instructions* Patient Instructions* Pebbles Arcos LPN - [...] through Care Everywhere. * Heart Healthy Diet (Tunisian) documented in this encounterOhio[facility] Work Phone: 1(448) 562-374308-30-2024 Consult note Author Rogelio [facility] January 23, 2024 12:43pmNote Date/TimeAugust 2023 12:29[place] [address] Physiatry (Rehab) Consult Note Signed Patient: Alex Anderson MR#: [id number] : 1945 Acct:[id number] Age/Sex: 78 / M Adm Date: 4 Loc: Room: [address] [place] [address] Type: ADM IN Attending Dr: Nas Pruett [...] post mid LAD stenting for ST elevation TX (01/15) course complicated by hypotension, atrial fibrillation, [...] Appearance Clear Urine pH 5.5 Ur Specific Mesa 1.022 Urine Protein Trace H Urine Glucose [...] post mid LAD stenting for ST elevation TX (01/15) course complicated by hypotension, atrial fibrillation, [...] would recommend SNF closer to home in [place]. I understand this may be a discrepancy [...] chart, including current orders, allied health and jury consultant notes, labs/imaging and performed diaz elements of exam and I formulated the plan of care and facilitated the medical decision making. I completed a substantive portion of this encounter, the medical decision making portion of this note in its entirety, including Allied health note review, nursing note review, jury consultant note review, discussion with nursing and case management, and more than 50% of my time was spent on counseling and coordination of care, time spent 40 minutes Documented By: Rogelio Rai MD 01/23/24 1207 Signed By: <Electronically signed by Rogelio Rai MD> 01/23/24 1243 [facility] Work Phone: 1([phone]) 412-552708-30-2024 Progress note Author Isaac Edwards [facility] January 23, 2024 12:01pmNote Date/TimeAugust 2023 11:59[place] [address] Progress Note Signed Patient: Alex Anderson MR#: [id number] : 1945 Acct:[id number] Age/Sex: 78 / M Adm Date: 4 Loc: 4 Room: 6I2392-5 Type: ADM IN Attending Dr: Nas Pruett [...] signed by MD Isaac Edwards> 01/23/24 1201 [facility] Work Phone: 1(518) 213-985408-30-2024 Consult note Author Rob Almazan [facility] January 23, 2024 3:21pmNote Date/TimeAugust 2023 8:34[place] [address] Hospitalist Consult Note Signed Patient: Alex Anderson MR#: [id number] : 1945 Acct:[id number] Age/Sex: 78 / M Adm Date: 4 Loc: Room: [address] [place] [address] Type: ADM IN Attending Dr: Nas Pruett [...] that which is noted above in HPI [facility] Medical History Zapien catheter in place BPH [...] % (Auto) 64.3, Lymph % (Auto) 15.6, [place] % (Auto) 16.0, Eos % (Auto) 3.6, Baso % (Auto) 0.5, Nucleat RBC Rel Count 0.1, Neut # (Auto) 5.7, Lymph # (Auto) 1.4, [place] # (Auto) 1.4 H, Eos # (Auto) [...] <Electronically signed by Rob Almazan MD> 01/23/24 8186 [facility] Work Phone: 1(779) 537-824508-30-2024 Progress note Author Jakob Lomax [facility] January 23, 2024 12:26amNote Date/TimeAugust 2023 12:[address] [address] Progress Note Signed Patient: Alex Anderson MR#: [id number] : 1945 Acct:[id number] Age/Sex: 78 / M Adm Date: 4 Loc: Room: [address] [place] [address] Type: ADM IN Attending Dr: Nas Pruett DO Copies to: ~ Date of Service: 01/22/2024 Progress Narrative Note PROGRESS NOTE Progress Note: Patient had a security alert called earlier this evening after getting aggressive with PCT, I responded to the security alert and received full report from bedside and discharge rn regarding the events.patient did fall but only [...] plan to use Haldol 5mg IM, discharge rn aware to notify me if needed. Formal consult to come tomorrow Documented By: Jakob Lomax DO 01/23/2421 Signed By: <Electronically signed by Jakob Lomax DO> 01/23/2425 [facility] Work Phone: 1(346) 107-418608-29-2024 Progress note Author Teo Al [facility] January 22, 2024 2:01pmNote Date/TimeAugust 2023 2:01pm[address] [address] Cardiology Progress Note Signed Patient: Alex Anderson MR#: [id number] : 1945 Acct:[id number] Age/Sex: 78 / M Adm Date: 4 Loc: 4 Room: [address] [place] [address] Type: ADM IN Attending Dr: Nas Pruett [...] need toby found as the next step. traveling engineer and PT will be consulted Exam Physical [...] heart failure Documented By: Teo Al MD, [facility] 4 1350 Signed By: <Electronically signed by [facility] CENTERQuynh Al> 01/22/24 1401 [facility] Work Phone: 1(293) 819-522808-29-2024 Progress note Author Isaac Edwards [facility] January 22, 2024 1:58pmNote Date/TimeAugust 2023 1:58pmStephanie [place] 3099570 Pulmonology Progress Note Signed Patient: Alex Anderson MR#: [id number] : 1945 Acct:[id number] Age/Sex: 78 / M Adm Date: 4 Loc: 4P Room: [address] [place] [address] Type: ADM IN Attending Dr: Nas Pruett [...] signed by MD Isaac Edwards> 01/22/24 1358 [facility] Work Phone: 1(359) 574-603908-28-2024 Progress note Author Teo Al [facility] January 21, 2024 5:24pmNote Date/TimeAugust 2023 5:24[place] [address] Cardiology Progress Note Signed Patient: Alex Anderson MR#: [id number] : 1945 Acct:[id number] Age/Sex: 78 / M Adm Date: 4 Loc: 4 Room: [address] [place] [address] Type: ADM IN Attending Dr: Nas Pruett [...] % (Auto) 64.3 Lymph % (Auto) 15.6 Berrien % (Auto) 16.0 Eos % (Auto) 3.6 Baso % (Auto) 0.5 Nucleat RBC Rel Count 0.1 Neut # (Auto) 5.7 Lymph # (Auto) 1.4 [place] # (Auto) 1.4 H Eos # (Auto) [...] heart failure Documented By: Teo Al MD, [facility] 4 1722 Signed By: <Electronically signed by [facility] Teo Al> 01/21/24 1724 [facility] Work Phone: 1(198) 307-554408-28-2024 Progress note Author Isaac Edwards [facility] January 21, 2024 11:45amNote Date/TimeAugust 2023 11:31[place], [place] [address] Pulmonology Progress Note Signed Patient: Alex Anderson MR#: [id number] : 1945 Acct:[id number] Age/Sex: 78 / M Adm Date: 4 Loc: Room: [address] [place] [address] Type: ADM IN Attending Dr: Nas Pruett [...] perspective. Documented By: Isaac Edwards MD 4 1121 Signed By: <Electronically signed by MD Isaac Edwards> 01/21/24 1018 [facility] Work Phone: 1(280) 710-583208-27-2024 Progress note Author Teo Al [facility] January 20, 2024 3:58pmNote Date/TimeAugust 2023 3:58pm[address] [address] Cardiology Progress Note Signed Patient: Alex Anderson MR#: [id number] : 1945 Acct:[id number] Age/Sex: 78 / M Adm Date: 4 Loc: Room: [address] [place] [address] Type: ADM IN Attending Dr: Nas Pruett [...] % (Auto) 71.9 Lymph % (Auto) 11.8 Berrien % (Auto) 14.3 Eos % (Auto) 1.7 Baso % (Auto) 0.3 Nucleat RBC Rel Count 0.0 Neut # (Auto) 6.8 Lymph # (Auto) 1.1 [place] # (Auto) 1.4 H Eos # (Auto) [...] heart failure Documented By: Teo Al MD, [facility] 4 1555 Signed By: <Electronically signed by MD [place] Al> 01/20/24 1558 [facility] Work Phone: 1(227) 993-706308-27-2024 Progress note Author Isaac Edwards [facility] January 20, 2024 12:59pmNote Date/TimeAugust 2023 8:53[place] [address] Pulmonology Progress Note Signed Patient: Alex Anderson MR#: [id number] : 1945 Acct:[id number] Age/Sex: 78 / M Adm Date: 4 Loc: Room: [address] [place] [address] Type: ADM IN Attending Dr: Nas Pruett [...] needed. Documented By: Isaac Edwards MD 4 1246 Signed By: <Electronically signed by MD Isaac Edwards> 01/20/24 1259 [facility] Work Phone: 1(445) 732-275308-26-2024 Progress note Author Isaac Edwards [facility] January 19, 2024 1:20pmNote Date/TimeAugust 2023 9:06[place], [place] [address] Pulmonology Progress Note Signed with Addenda Patient: Alex Anderson MR#: [id number] : 1945 Acct:[id number] Age/Sex: 78 / M Adm Date: 4 Loc: Room: [address] [place] [address] Type: ADM IN Attending Dr: Nas Pruett [...] needed. Documented By: Isaac Edwards MD 4 06 Signed By: <Electronically signed by MD Isaac Edwards> 01/19/24 [facility] Work Phone: 1(971) 776-978408-26-2024 Progress note Author Teo Al [facility] January 19, 2024 12:11pmNote Date/TimeAugust 2023 12:11[place] [address] Cardiology Progress Note Signed Patient: Alex Anderson MR#: [id number] : 1945 Acct:[id number] Age/Sex: 78 / M Adm Date: 4 Loc: Room: [address] [place] [address] Type: ADM IN Attending Dr: Nas Pruett [...] % (Auto) 78.5 Lymph % (Auto) 8.8 Berrien % (Auto) 11.9 Eos % (Auto) 0.4 Baso % (Auto) 0.4 Nucleat RBC Rel Count 0.1 Neut # (Auto) 8.6 H Lymph # (Auto) 1.0 Berrien # (Auto) 1.3 H Eos # (Auto) [...] heart failure Documented By: Teo Al MD, [facility] 4 1206 Signed By: <Electronically signed by MD [place] Al> 01/19/24 1211 [facility] Work Phone: 1(175) 434-402808-25-2024 Progress note Author Justina Lara [facility] January 18, 2024 3:10pmNote Date/TimeAugust 2023 3:10[place] [address] Pulmonology Progress Note Signed Patient: Alex Anderson MR#: [id number] : 1945 Acct:[id number] Age/Sex: 78 / M Adm Date: 4 Loc: Room: [address] [place] [address] Type: ADM IN Attending Dr: Nas Pruett [...] managing post PCI/stent in LAD for acute TX. He is on beta- maldonado, antiplatelets, statin, [...] signed by Justina Lara MD> 01/18/24 1510 [facility] Work Phone: 1(610) 641-791408-25-2024 Progress note Author Ana Castro [facility] January 18, 2024 12:49pmNote Date/TimeAugust 2023 12:50[place] [address] Cardiology Progress Note Signed Patient: Alex Anderson MR#: [id number] : 1945 Acct:[id number] Age/Sex: 78 / M Adm Date: 4 Loc: Room: [address] [place] [address] Type: ADM IN Attending Dr: Nas Pruett [...] MPV Neut % (Auto) Lymph % (Auto) [place] % (Auto) Eos % (Auto) Baso % (Auto) Nucleat RBC Rel Count Neut # (Auto) Lymph # (Auto) [place] # (Auto) Eos # (Auto) Baso # (Auto) PHA Creatinine Clear Sodium Potassium Chloride Carbon Dioxide Anion Gap BUN Creatinine Est GFR (CKD-EPI) Glucose POC Glucose 115 126 Calcium Urine Color Light-yellow Urine Appearance Cloudy A Urine pH 6.0 Ur Specific Mesa 1.018 Urine Protein Trace H Urine Glucose [...] % (Auto) 75.1 Lymph % (Auto) 11.5 Berrien % (Auto) 12.8 Eos % (Auto) 0.2 Baso % (Auto) 0.4 Nucleat RBC Rel Count 0.0 Neut # (Auto) 9.1 H Lymph # (Auto) 1.4 Berrien # (Auto) 1.5 H Eos # (Auto) 0.0 Baso # (Auto) 0.0 PHA Creatinine Clear 46.65 Sodium 136 Potassium 3.7 Chloride 107 Carbon Dioxide 21.2 Anion Gap 11.5 BUN 29 H Creatinine 1.59 H Est GFR (CKD-EPI) 43.613 Glucose 125 H POC Glucose Calcium 8.7 Urine Color Urine Appearance Urine pH Ur Specific Mesa Urine Protein Urine Glucose (UA) Urine Ketones [...] to restore sinus mechanism Documented By: Ana aCstro MD 01/18/241246 Signed By: <Electronically signed by MD Ana Castro> 01/18/24 1249 [facility] Work Phone: 1(609) 852-739908-24-2024 Progress note Author Ana Castro [facility] January 17, 2024 12:43pmNote Date/TimeAugust 2023 12:43[place] [address] Cardiology Progress Note Signed Patient: Alex Anderson MR#: [id number] : 1945 Acct:[id number] Age/Sex: 78 / M Adm Date: 4 Loc: Room: [address] [place] [address] Type: ADM IN Attending Dr: Nas Pruett [...] MPV Neut % (Auto) Lymph % (Auto) Berrien % (Auto) Eos % (Auto) Baso % (Auto) Nucleat RBC Rel Count Neut # (Auto) Lymph # (Auto) Berrien # (Auto) Eos # (Auto) Baso # (Auto) Platelet Estimate Plt Morphology Comment RBC Morphology PHA Creatinine Clear Sodium Potassium Chloride Carbon Dioxide Anion Gap BUN Creatinine Est GFR (CKD-EPI) Glucose POC Glucose POC Glucose Comment Calcium Troponin I High Sens 30568.4 H* 693900.2 H* 030467.4 H* Triglycerides Cholesterol LDL Cholesterol, Calc VLDL Cholesterol HDL Cholesterol Cholesterol/HDL Ratio 01/16/24 01/16/24 01/16/24 18:37 19:15 21:31 Corrected WBC Uncorrected WBC Count RBC Hgb Hct MCV MCH MCHC RDW Plt Count MPV Neut % (Auto) Lymph % (Auto) Berrien % (Auto) Eos % (Auto) Baso % (Auto) Nucleat RBC Rel Count Neut # (Auto) Lymph # (Auto) Berrien # (Auto) Eos # (Auto) Baso # (Auto) Platelet Estimate Plt Morphology Comment RBC Morphology PHA Creatinine Clear Sodium Potassium Chloride Carbon Dioxide Anion Gap BUN Creatinine Est GFR (CKD-EPI) Glucose POC Glucose 119 118 POC Glucose Comment Glu2: cleaned meter Calcium Troponin I High Sens 75513.2 H* Triglycerides Cholesterol LDL Cholesterol, Calc VLDL Cholesterol HDL Cholesterol Cholesterol/HDL Ratio 01/17/24 01/17/24 01/17/24 04:37 07:14 11:52 Corrected WBC 17.7 H Uncorrected WBC Count 17.7 H RBC 4.46 Hgb 12.7 L Hct 38.4 L MCV 86.1 MCH 28.4 MCHC 33.0 RDW 15.8 H Plt Count 135 L MPV 9.0 Neut % (Auto) 77.1 Lymph % (Auto) 6.9 Berrien % (Auto) 15.6 Eos % (Auto) 0.0 Baso % (Auto) 0.4 Nucleat RBC Rel Count 0.0 Neut # (Auto) 13.6 H Lymph # (Auto) 1.2 Berrien # (Auto) 2.8 H Eos # (Auto) [...] Comment Calcium 8.9 Troponin I High Sens 35785.6 H* Triglycerides 67 Cholesterol 74 L LDL [...] Signed By: <Electronically signed by MD Ana Csatro> 01/17/243 [facility] Work Phone: 1(771) 128-775208-24-2024 Progress note Author Justina Lara [facility] January 17, 2024 11:57amNote Date/TimeAugust 2023 11:54[place] [address]1970 Pulmonology Progress Note Signed Patient: Alex Anderson MR#: [id number] : 1945 Acct:[id number] Age/Sex: 78 / M Adm Date: 4 Loc: Room: [address] [place] [address] Type: ADM IN Attending Dr: Nas Pruett [...] managing post PCI/stent in LAD for acute TX. He is on beta- maldonado, antiplatelets, statin, [...] signed by Justina Lara MD> 01/17/24 1157 [facility] Work Phone: 1(378) 770-127208-23-2024 Consult note Author Justina Lara [facility] January 16, 2024 3:19pmNote Date/TimeAugust 2023 3:16[place] [address] Pulmonology Consult Note Signed Patient: Alex Anderson MR#: [id number] : 1945 Acct:[id number] Age/Sex: 78 / M Adm Date: 4 Loc: Room: [address] [place] [address] Type: REG CTC Attending Dr: Nas Pruett DO Copies to: [...] abdominal pain nausea was diagnosed with acute TX and transferred from [facility]. He underwent left heart catheterization and stent in mid LAD Review of Systems Review of Systems All other systems reviewed & are negative unless noted below or in HPI Constitutional Constitutional: Reports as per HPI Cardiovascular Cardiovascular: Reports as per HPI and Reports chest pain at rest [facility] Medical History (Updated 01/16/24 @ 12:52 [...] managing post PCI/stent in LAD for acute TX. He is on beta- maldonado, antiplatelets, statin, antihypertensive medication per cardiology Monitor creatinine post cath Bronchodilators as needed for COPD Chest x-ray in a.m. DVT prophylaxis Lovenox Documented By: Justina Lara MD 01/16/24 1509 Signed By: <Electronically signed by Justina Lara MD> 01/16/24 [facility] Work Phone: 1(847) 384-639508-23-2024 History and physical note Author Nas Pruett [facility] January 16, 2024 12:53pmNote Date/TimeAugust 2023 12:45[place] [address] Cardiology H&P Signed Patient: Alex Anderson MR#: [id number] : 1945 Acct:[id number] Age/Sex: 78 / M Adm Date: 4 Loc: Room: [address] [place] [address] Type: REG SDC Attending Dr: Nas Pruett DO Copies to: MD Nas Richards DO~ Date of Service: 01/16/2024 Cardiology HPI History of Present Illness Chief complaint: Anterior STEMI HPI: Mr. Anderson is a 78 year old male transferred from [place] with acute anterior ST elevation TX; original phone call taken from outside ER attending at 09:30 AM. Patient arrived in [facility] at 1116, after attempted right femoral approachand [...] (beginning of his suspectedsymptomatology); finally went to [place] ER around 02-01 this morning whereupon he was appropriately he diagnosed, appropriate upstream therapy instituted under my direction after discussion with ER attending, and emergently transferred to [facility] for revascularization. Total 60 minutes nonprocedural critical care time were devoted to the outside ERattending and staff, [facility] staff, nursing staff, patient and family pre and post procedurally Review of Systems Review of Systems All other systems reviewed & are negative unless noted below or in HPI Constitutional Constitutional: Reports as per HPI Cardiovascular Cardiovascular: Reports as per HPI and Reports chest pain at rest [facility] Medical History (Updated 01/16/24 @ 12:52 [...] Interpretations EKG EKG results cardiology: sinus rhythm TX, pacemaker, normal Myocardial infarction: anterior TX (acute or recent) A&P - Cardiology (1) [...] signed by Nas Pruett DO> 01/16/24 1253 [facility] Work Phone: 1(107) 602-559908-23-2024 Procedure [facility]08-23-2024 Procedure [facility]08-21-2024 Procedure [facility]05-10-2024 Hospital Discharge instructions Patient Education 10/03/2023 [...] Follow these instructions at home: Medicines Take zgmd-aun-oulplmc and prescription medicines only as told by [...] provider. Document Revised: 01/31/2021 Document Reviewed: 01/31/2021 [employer] Patient Education 2022 Dyn. Follow Up Care 08/15/2023 11:04:15 With:ABRIL CASILLAS, Katia Macias, URL Address: [facility] [address] , [place] [address]- [phone] When: Unknown [facility] 02-05-2024 Hospital Discharge instructions Patient Education 06/30/2023 [...] Follow these instructions at home: Medicines Take ublx-yut-iypuivz and prescription medicines only as told by [...] provider. Document Revised: 01/31/2021 Document Reviewed: 01/31/2021 [employer] Patient Education 2022 Dyn. Follow Up Care 05/06/2023 11:11:29 With:ABRIL CASILLAS, Katia Macias, URL Address: [facility] [address] , [place] [address] [phone] When: Unknown Comments:1 day for catheter removal [facility] 01-16-2024 Hospital Discharge instructions Patient Education 06/10/2023 15:16:23 [facility] - Re[facility] Discharge Instructions (CUSTOM) Re[facility] Post-Procedure [...] cotton underwear to absorb moisture and keep esthetician/skin therapist. 6. Keep the drainage bag below the [...] With:Katia SAMUELS Address: [facility] [address], [place] [address]- Business (1) When:06/24/2023 15:15:55 Comments:for zapien removal [facility]12-12-2023 Evaluation note* Encounter Date Diagnosis Assessment Notes Treatment Notes Treatment Clinical Notes Apr, Primary hypertension (ICD-10 - I 10) [employer] Other 11-21-2023 Evaluation note* Encounter Date Diagnosis [...] supplement. I asked the patient to continue ewce-vql-yfkhctg iron supplement once or twice daily Mar,rimary hypertension (ICD-10 - I10)BP is elevated. Will start Norvasc 5 mg PO daily. i asked the patient to monitor Bp closely with tapering steroid dose [facility] Other 10-17-2023 Hospital Discharge instructions Patient Education [...] including vitamins, herbs, eye drops, creams, and pauk-huv-brbhyne medicines. Any problems you or family members [...] provider tells you to take them. Taking rpqe-mmz-djamwyv medicines, vitamins, herbs, and supplements. Surgery safety [...] provider. Document Revised: 02/05/2022 Document Reviewed: 02/05/2022 [employer] Patient Education 2022 Dyn. 03/11/2023 14:15:06 Benign Prostatic Hyperplasia Benign Prostatic [...] urethra. Follow these instructions at home: Take vfzo-vhr-khuvowi and prescription medicines only as told by [...] provider. Document Revised: 11/28/2021 Document Reviewed: 11/28/2021 [employer] Patient Education 2022 Dyn. Follow Up Care 02/07/2023 16:01:50 With:ABRIL CASILLAS, Katia Macias, BRAULIOL Address: [facility] [address] , [place] [address]- When:Within 3 Month(s) Comments:Sched cysto/FISH/Cytol/BT check [facility] 10-17-2023 Evaluation + Plan note Diagnostic Tests Pending * UroVysion Fish and Urine Cyto ([facility]) 03/11/23 [facility]07[facility]18[facility]20[facility] Evaluation + Plan note Diagnostic Tests Pending * UroVysion Fish and Urine Cyto ([facility]) 12/10/22 [facility]2023 Hospital Discharge instructions Patient Education 12/10/2022 [...] if anything looks unusual. Men with a vfguwh-pkgv-ekqthu risk for skin cancer may want to see a hide and skin classer (electric truck crane operator) for an annual body check. What are the benefits of screening? Cancer screening is done to look for cancer in the very early stages, before it spreads and becomesharder to treat and before you would start to notice symptoms. Finding cancer early improves the chances of successful treatment. It may save your life. Where to find more information [place] [employer]: www.cancer.org Centers for Disease Control and Prevention: www.cdc.gov National Cancer Harvey: www.cancer.gov Contact a health care provider if: [...] Document Reviewed: 04/07/2020 Elsevier Patient Education 2022 Dyn. Follow Up Care 11/15/2022 14:27:10 With:ABRIL CASILLAS, Katia Macias, URL Address: [facility] [address] , [place] [address]- When: Unknown [facility] 04-26-2023 Hospital Discharge instructions Patient Education 09/18/2022 [...] cells. Follow these instructions at home: Take huye-bgx-qeyojtf and prescription medicines only as told by [...] is important. Where to find more information [place] [employer] (ACS): cancer.org National Cancer Harvey (NCI): cancer.gov Contact a health care provider [...] provider. Document Revised: 04/22/2022 Document Reviewed: 04/22/2022 [employer] Patient Education 2022 Dyn. Follow Up Care 08/26/2022 14:12:46 With:ABRIL CASILLAS, Katia Macias, URL Address: [facility] [address], [place] [address]- When: Unknown [facility] 04-10-2023 NoteEXAM: XR CHEST 2 V HISTORY: Pre-surgery evaluation COMPARISON: None. TECHNIQUE: PA and lateral views of the chest. FINDINGS: The cardiomediastinal silhouette is normal. No focal consolidation is identified. There is no pneumothorax. No pleural effusion is noted. The osseous structures are intact. IMPRESSION: No acute cardiopulmonary process. Electronically authenticated by: CORKY FORD Date: 2022-09-02 14:17[facility]03-29-2023 Evaluation note* Encounter Date Diagnosis [...] have his bladder tumor removal as scheduled. [facility] Other 03-08-2023 Evaluation + Plan note Diagnostic Tests Pending * UroVysion Fish and Urine Cyto ([facility]) 07/31/[address] [facility] 03-08-2023 Hospital Discharge instructions Patient Education [...] including vitamins, herbs, eye drops, creams, and kcgg-dyr-wtwlgnv medicines. Any problems you or family members [...] provider tells you to take them. Taking xglp-oqy-ndcgxfl medicines, vitamins, herbs, and supplements. Tests You [...] 03/08/2010 Document Revised: 12/11/2018 Document Reviewed: 12/11/2018 [employer] Patient Education 2020 Dyn. Follow Up Care 07/25/2022 10:56:51 With:ABRIL CASILLAS, Katia Macias, URL Address: [facility] [address] , [place] [address]- When: Unknown [facility] 03-02-2023 Evaluation note* Encounter Date Diagnosis [...] some bladder issues. I did call the [facility]. The device is compatible up to 3 Maggi for MRI. I explained this to the family and the patie nt. Jul,Other specified postprocedural states (ICD-10 - Z98.890) Jul,ersonal history of other diseases of the circulatory system (ICD-10 - Z86.79) [facility] note* Encounter Date Diagnosis [...] plan to do this percutaneously under MAC. [facility] Other 01-17-2023 Hospital Discharge instructions Patient Education [...] including vitamins, herbs, eye drops, creams, and vspd-chn-xunohii medicines. Any problems you or family members [...] provider tells you to take them. ?Taking beye-plt-gbymetz medicines, vitamins, herbs, and supplements. Follow instructions [...] Follow these instructions at home: Medicines Take ciac-ovi-drweupn and prescription medicines only as told by [...] 05/09/2001 Document Revised: 05/04/2019 Document Reviewed: 05/04/2019 [employer] Patient Education 2020 [employer] Follow Up Care 05/22/2022 13:37:28 With:[facility] Address: [address] [place] [address] Business (1) When: Unknown Comments:our metal inspector will be contacting you for follow-up [facility] 01-12-2023 Evaluation note* Encounter Date Diagnosis Assessment [...] to proceed all his questions were addressed. [facility] Other 01-10-2023 Evaluation note* Encounter Date Diagnosis [...] (ICD-10 - E78.5) Patient is on statin [employer] [facility] Other Discharge summary Author Teo Al [facility] January 23, 2024 3:52pmNote Date/TimeAugust 2023 3:52[place] [address] Discharge Summary Signed Patient: Alxe Anderson MR#: [id number] : 1945 Acct:[id number] Age/Sex: 78 / M Adm Date: 4 Loc: Room: [address] [place] [address]: Nas Pruett DO Copies to: MD Teo Richards MD, FACC Nas Pruett DO~ Providers Date of Discharge: 01/23/24 Discharging Provider: Teo Al Primary Care Provider: Stanley Emerson Consults: 01/16/24 12:54 Consult to Pulmonology Routine Comment: Consulting Provider: MIGUEL Jose Pulmon, CC & Sleep Med Reason For [...] Community Hospitalist (Adult) Reason For Exam: Fall, owning. Has Provider Been Notified: Yes Date of [...] Course Hospital course: Patient was transferred from [facility] emergency department with anterior ST elevation myocardial infarction and was taken straight to the Inside [facility] by Dr. Pruett and underwent urgent PCI [...] baseline dementia and there was timeswhen he sundown and became more agitated requiring therapy with [...] doctor or pharmacist, without first calling the assembler metal furniture who implanted the stent. If you [...] weight lifting, stair steppers, etc. until the assembler metal furniture approves these activities. Check with the assembler metal furniture on your first follow-up visit. CALL YOUR ENTERPRISE SERVICES MANAGER: -If bleeding should occur from the catheter insertion site- apply pressure to the site then immediately call us. -Report any fever, redness, drainage, increased swelling, or firmness at the catheter insertion site. Some bruising or slight swelling may be present at thetime of discharge. -Should arm or leg become cold, numb, white, or blue, contact the assembler metal furniture immediately. -IF you should experience episodes [...] Cardiopulmonary Rehabilitation program is recommended. The attending assembler metal furniture or a nurse clinician should provide you with specificinstructions regarding activity, diet, medications, and further follow up for you. Follow the medication instructions provided on your discharge. If the dosages and instructions on this sheet differ from the dosage and instructions on the bottle, follow the instructions on the bottle. [facility] is not responsible for incorrect [...] Appearance Clear, Urine pH 5.5, Ur Specific [place] 1.022, Urine Protein Trace H, Urine Glucose (UA) Normal, Urine Ketones Negative, Urine Occult Blood 2+ H,Urine Nitrite Negative, Urine Bilirubin Negative, Urine Urobilinogen 2 H, Ur Leukocyte Esterase 4+ H, Urine RBC 20-49 H, Urine WBC 20-49 H, Urine WBC Clumps Rare H, Ur Squamous Epith CellsN/A, Urine Bacteria Rare, Hyaline Casts None, Urine Mucus Rare Documented By: Teo Al MD, [facility] 4 1548 Signed By: <Electronically signed by [facility] Teo Al> 01/23/24 1552 [facility] Work Phone: Evaluation + Plan note No data available for this section [facility] evaluation + Plan note Future Appointments Appointment Date:10/04/2022 10:00:00 AM Scheduled Provider: Location:[facility] Appointment Type:URO Nurse Visit [facility] Evaluation + Plan note Future Appointments Appointment Date:06/16/2023 10:00:00 AM Scheduled Provider: Location:[facility] Appointment Type:URO Nurse Visit Appointment Date:06/30/2023 01:30:00 PM Scheduled Provider:Katia SAMUELS MD Location:[facility] Appointment Type:URO Office Visit Diagnostic Tests Pending * UroVysion Fish and Urine Cyto ([facility]) [facility] Future Appointments Appointment Date:06/30/2023 01:30:00 PM Scheduled Provider:Katia SAMUELS MD Location:[facility] Appointment Type:URO Office Visit [facility] evaluation + Plan note Future Appointments Appointment Date:07/01/2023 08:30:00 AM Scheduled Provider: Location:[facility] Appointment Type:URO Nurse Visit [facility] evaluation + Plan note Future Appointments Appointment Date:09/09/2023 02:15:00 PM Scheduled Provider:Katia SAMUELS MD Location:[facility] Appointment Type:URO Procedure [address] [facility] Evaluation + Plan note Future Appointments Appointment Date:10/07/2023 02:45:00 PM Scheduled Provider:Katia SAMUELS MD Location:[facility] Appointment Type:URO Procedure [address] [facility] Evaluation + Plan note Future Appointments Appointment Date:10/31/2023 11:00:00 AM Scheduled Provider: Location:[facility] Appointment Type:URO Nurse Visit [facility] Evaluation + Plan note Future Appointments Appointment Date:10/31/2023 11:00:00 AM Scheduled Provider: Location:[facility] Appointment Type:URO Nurse Visit Diagnostic Tests Pending * UroVysion Fish and Urine Cyto ([facility]) [facility]03/23 [facility] Future Appointments Appointment Date:11/04/2023 10:30:00 AM Scheduled Provider: Location:[facility] Appointment Type:URO Nurse Visit [facility] Evaluation + Plan note Future Appointments Appointment Date:12/02/2023 11:00:00 AM Scheduled Provider:TC Boles APRN, [place] X Location:[facility] Appointment Type:URO Office Visit [facility] evaluation + Plan note Future Appointments Appointment Date:01/20/2024 11:30:00 AM Scheduled Provider:TC Boles APRN, [place] Location:[facility] Appointment Type:URO Office Visit [facility] evaluation + Plan note Future Appointments Appointment Date:04/06/2024 11:00:00 AM Scheduled Provider:Katia SAMUELS MD Location:[facility] Appointment Type:URO Procedure 15 min [facility] evaluation + Plan note Future Appointments Appointment Date:05/06/2024 12:30:00 PM Scheduled Provider:Fabi Antonio Location:[facility] Appointment Type:URO Office Visit Appointment Date:10/05/2024 02:00:00 PM Scheduled Provider:Katia SAMUELS MD Location:[facility] Appointment Type:URO Procedure [address] [facility] Evaluation + Plan note Future Appointments Appointment Date:05/06/2024 12:30:00 PM Scheduled Provider:Fabi Antonio Location:[facility] Appointment Type:URO Office Visit Appointment Date:10/05/2024 02:00:00 PM Scheduled Provider:Katia SAMUELS MD Location:[facility] Appointment Type:URO Procedure 15 min Diagnostic Tests Pending * UroVysion Fish and Urine Cyto ([facility]) 04/06/24 [facility] evaluation + Plan note Future Appointments Appointment Date:06/29/2024 10:00:00 AM Scheduled Provider:HEATHER OMALLEY PA-C Location:[facility] Appointment Type:URO Office Visit Appointment Date:10/05/2024 02:00:00 PM Scheduled Provider:Katia SAMUELS MD Location:[facility] Appointment Type:URO Procedure 15 min [facility] Evaluation + Plan note Future Appointments Appointment Date:08/12/2024 11:20:00 AM Scheduled Provider:HEATHER OMALLEY PA-C Location:[facility] Appointment Type:URO Complex Office Visit Appointment Date:10/05/2024 02:00:00 PM Scheduled Provider:Katia SAMUELS MD Location:[facility] Appointment Type:URO Procedure 15 min [facility] evaluation + Plan note Future Appointments Appointment Date:11/16/2024 02:00:00 PM Scheduled Provider:Katia SAMUELS MD Location:[facility] Appointment Type:URO Procedure 15 min [facility] evaluation + Plan note Future Appointments Appointment Date:12/14/2024 11:00:00 AM Scheduled Provider:Eboni Anderson PA-C Location:[facility] Appointment Type:URO Office Visit [facility] Evaluation + Plan note Future Appointments Appointment Date:12/14/2024 11:00:00 AM Scheduled Provider:Eboni Anderson PA-C Location:[facility] Appointment Type:URO Office Visit Diagnostic Tests Pending * UroVysion Fish and Urine Cyto ([facility]) 11/16/24 [facility] Evaluation + Plan note Future Appointments Appointment Date:01/12/2025 12:30:00 PM Scheduled Provider:Eboni Anderson PA-C Location:[facility] Appointment Type:URO Office Visit [facility] evaluation + Plan note Future Appointments Appointment Date:02/10/2025 01:50:00 PM Scheduled Provider:TC Boles APRN, [place] Location:[facility] Appointment Type:URO Office Visit [facility] evaluation + Plan note Future Appointments Appointment Date:03/10/2025 01:50:00 PM Scheduled Provider:TC Boles APRN, [place] X Location:[facility] Appointment Type:URO Office Visit [facility] evaluation + Plan note Future Appointments Appointment Date:04/07/2025 11:00:00 AM Scheduled Provider:Orzech AQUATIC LABORER, SIXTH GRADE TEACHER-C, [place] X Location:[facility] Appointment Type:URO Complex Office Visit [facility] evaluation note* Diagnosis Onset Date Resolution Status AAA (abdominal aortic aneurysm) acuteAcute kidney injuryacuteAcute metabolic encephalopathyacuteBilateral hydronephrosisacuteBladder massacuteDiarrheaacuteFolic acid deficiencyacute HyperkalemiaacuteMetabolic acidosisacutePre-operative cardiovascular examination, bradyarrhythmiaacute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acute SundowningacuteTIA (transient ischemic attack)acuteTobacco abuseacuteUTI (urinary tract infection)acuteVitamin B 12 deficiencyacute [facility] Work Phone: Evaluation noteNo assessment information available [facility] Work Phone: evaluation noteNo InformationNort Bergen Medical [employer] Other Evaluation note* Diagnosis Onset Date Resolution Status Status post endovascular aneurysm repair (EVAR) acuteAbdominal aortic aneurysm without ruptureacuteAnemiaacuteChronic kidney disease, stage 3bacuteHyperlipidemiaacuteHypertensive nephropathyacuteIron deficiencyacuteObstructive nephropathyacute [facility] Work Phone: Evaluation note* Diagnosis Onset Date Resolution Status Abdominal aortic aneurysm without ruptur e acuteAnemiaacuteChronic kidney disease, stage 3bacuteHyperlipidemiaacute Hypertensive nephropathyacuteIron deficiencyacuteObstructive nephropathyacute [facility] Work Phone: Evaluation note* Diagnosis Onset Date Resolution Status Abdominal aortic aneurysm without ruptur e acuteAtrial fibrillation, new onsetacuteChronic kidney disease, stage 3bacute Chronic systolic heart failureacuteDeliriumacuteHyperlipidemiaacuteHypertension acuteHypertensive nephropathyacuteHypotensionacuteImpaired mobility and activities of daily livingacuteIron deficiencyacuteIschemic cardiomyopathyacute Sleep-wake cycle disorderacuteST elevation myocardial infarction (STEMI) of anterior wallacuteStatus post endovascular aneurysm repair (EVAR)acuteStented coronary arteryacute [facility] Work Phone: Evaluation note* Diagnosis Onset [...] disease, stage 3bacuteHyperlipidemiaacute Hypertensive nephropathyacuteIron deficiencyacuteObstructive nephropathyacute [facility] Work Phone: Evaluation note* Diagnosis Paroxysmal atrial fibrillation (Multi) Atrial fibrillation documented in this encounter [facility] Work Phone: Evaluation note* Diagnosis Pneumonia of left lower lobe due to infectious organism- Primary Simple chronic bronchitis (CMS/HCC) Simple chronic bronchitis documented in [facility] encounter [facility] Healthcare[facility]* Diagnosis Onset Date Resolution [...] 3bacuteHyperlipidemiaacute Hypertensive nephropathyacuteIron deficiencyacuteObstructive nephropathyacute Chest congestionnoneactive [facility] Work Phone: Evaluation note* Diagnosis Onset [...] deficiencyacuteObstructive nephropathyacute Chest congestionnoneactiveRight lower lobe pneumonianoneactive [facility] Work Phone: Evaluation note* Diagnosis Pneumonia of right lower lobe due to infectious organism documented in this encounter [facility] HealthcareEvaluation note* Diagnosis Coronary artery disease involving [place] coronary artery of [place] heart without angina pectoris- Primary Paroxysmal atrial [...] health QT prolongation documented in this encounter [facility] Work Phone: Evaluation note* Diagnosis Simple chronic bronchitis (CMS/HCC) Simple chronic bronchitis documented in this encounter [facility] Healthcare[facility]* Diagnosis Paroxysmal atrial fibrillation (Multi) Atrial fibrillation High risk medication use Coronary artery disease involving [place] coronary artery of [place] heart without angina pectoris S/P PTCA (percutaneous [...] hazards to health documented in this encounter [facility] Work Phone: Evaluation note* Diagnosis Essential hypertension, benign (CMS/HCC) Essential hypertension, benign Hypertensive nephropathy (CMS/HCC) Unspecified hypertensive kidney disease with chronic kidney disease stage I through stage IV, or unspecified Stage 3a chronic kidney disease (HCC) (CMS/HCC) Microalbuminuria Proteinuria Panlobular emphysema (CMS/HCC) Other emphysema Simple chronic bronchitis (CMS/HCC) Simple chronic bronchitis Mixed dyslipidemia ([facility]) Polypharmacy Issue of repeat prescriptions Mixed conductive and sensorineural hearing loss of both ears Former smoker Personal history of tobacco use, presenting hazards to health Overweight documented in this encounter [facility] Healthcare[facility] note* Diagnosis Encounter for Medicare annual wellness exam- Primary Advance directive discussed with patient Encounter for screening for other disorder Screening for alcohol problem Screening for alcoholism Former smoker Personal history of tobacco use, presenting hazards to health Overweight documented in this encounter [facility] HealthcareEvaluation note* Diagnosis Cardiomyopathy, ischemic- Primary Other specified forms of chronic ischemic heart disease Coronary artery disease involving [place] coronary artery of [place] heart without angina pectoris Paroxysmal atrial fibrillation (Multi) Atrial fibrillation High risk medication use S/P PTCA (percutaneous transluminal coronary angioplasty) Postsurgical percutaneous transluminal coronary angioplasty status ST elevation myocardial infarction (STEMI), unspecified artery (Multi) Infrarenal abdominal aortic aneurysm (AAA) without rupture ([facility]) Essential hypertension Unspecified essential hypertension Dyslipidemia Other and unspecified hyperlipidemia Stage 3a chronic kidney disease (Multi) Transient cerebral ischemia, unspecified type Hematuria, unspecified type Hyperthyroidism Thyrotoxicosis without mention of goiter or other cause, without mention of thyrotoxic crisis or storm BMI 26.0-26.9,adult Former smoker Personal history of tobacco use, presenting hazards to health documented in this encounter [facility] Work Phone: Evaluation note* Diagnosis ST elevation myocardial infarction (STEMI), unspecified artery (Multi) Cardiomyopathy, ischemic Other specified forms of chronic ischemic heart disease Coronary artery disease involving [place] coronary artery of [place] heart without angina pectoris S/P PTCA (percutaneous transluminal coronary angioplasty) Postsurgical percutaneous transluminal coronary angioplasty status documented in this encounter [facility] Work Phone: Evaluation note* Diagnosis Onset Date Resolution Status Admit Date Abdominal aortic aneurysm without ruptur e acuteMar 2024 10:25amAnemiaacute[facility] 20[facility] 10:25amCHF (congestive heart failure)acute[facility] 2024 10:25amChronic kidney disease, stage 3bacute August 11, 2024 10:25amHyperlipidemiaacute[facility] 2024 10:25amHypertensive nephropathyacute[facility] 2024 10:25amIron deficiencyacuteUniversity [facility] 2024 10:25amObstructive nephropathyacuteMarch 2024 10:25am [facility] Work Phone: Evaluation note* Diagnosis Recurrent UTI- Primary Urinary tract infection, site not specified Need for prophylaxis against urinary tract infection documented in this encounter [facility] Healthcare[facility] note* Diagnosis Cardiomyopathy, ischemic Other specified forms of chronic ischemic heart disease Coronary artery disease involving [place] coronary artery of [place] heart without angina pectoris S/P PTCA (percutaneous [...] health BMI 26.0-26.9,adult documented in this encounter [facility] Work Phone: Evaluation note* Diagnosis 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 disturbance, psychotic disturbance, mood disturbance, or anxiety (CMS/HCC) Hallucinations Need for prophylaxis against urinary tract infection Indwelling urinary catheter present Former smoker Personal history of tobacco use, presenting hazards to health Polypharmacy Issue of repeat prescriptions Overweight documented in this encounter [facility] HealthcareEvaluation note* Diagnosis Community acquired pneumonia [...] Acute metabolic encephalopathy [facility] Diagnosis Cardiomyopathy, ischemic- Primary Other [...] Unspecified cardiac dysrhythmia documented in this encounter [facility] Work Phone: Evaluation note* Diagnosis Peripheral vascular disease (CMS/HCC)- Primary Unspecified peripheral vascular disease Presence of stent in artery Encounter for examination following treatment at hospital Pneumonia of left lower lobe due to infectious organism Lower extremity edema Edema Delirium due to another medical condition documented in this encounter [facility] HealthcareEvaluation note* Diagnosis Pneumonia of left lower lobe due to infectious organism Encounter for examination following treatment at hospital Lower extremity edema Edema Delirium due to another medical condition documented in this encounter [facility] HealthcareEvaluation note* Diagnosis Venous insufficiency of both lower extremities- Primary Venous stasis dermatitis of right lower extremity 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 disturbance, psychotic disturbance, mood disturbance, or anxiety ([facility]) documented in this encounter [facility] HealthcareEvaluation note* Diagnosis Onset Date Resolution Status Admit Date Abdominal aortic aneurysm without ruptur e acuteOctober 2024 2:22pmAnemiaacuteOctober 2024 2:22pmCHF (congestive heart failure)acuteOctober 2024 2:22pmChronic kidney disease, stage 3bacuteOctober 2024 2:22pmHyperlipidemiaacuteOctober 2024 2:22pmHypertensive nephropathyacuteOctober 2024 2:22pmHypokalemiaacute October 2024 2:22pmIron deficiencyacuteOctober 2024 2:22pm Obstructive nephropathyacuteOctober 2024 2:22pm [facility] Work Phone: Evaluation note* Diagnosis Paroxysmal atrial fibrillation (Multi) Atrial fibrillation High risk medication use Cardiomyopathy, ischemic Other specified forms of chronic ischemic heart disease Coronary artery disease involving [place] coronary artery of [place] heart without angina pectoris S/P PTCA (percutaneous transluminal coronary angioplasty) Postsurgical percutaneous transluminal coronary angioplasty status Essential hypertension Unspecified essential hypertension Dyslipidemia Other and unspecified hyperlipidemia Stage 3b chronic kidney disease (Multi) Transient cerebral ischemia, unspecified type Former smoker Personal history of tobacco use, presenting hazards to health Body mass index (BMI) 25.0-25.9, adult Hyperthyroidism Thyrotoxicosis without mention of goiter or other cause, without mention of thyrotoxic crisis or storm documented in this encounter [facility] Work Phone: History and physical note Author Willy Lamebrt [facility] January 14, 2024 8:46amNote Date/TimeAugust 2023 8:[place] [address] Gastroenterology H&P Signed Patient: Alex Anderson MR#: [id number] : 1945 Acct:[id number] Age/Sex: 78 / M Adm Date: 4 Loc: Room: Type: [facility] Attending Dr: Willy Lambert MD Copies [...] signed by Willy Lambert MD> 01/14/24 0846 [facility] Work Phone: Hiscnui general Narrative - Reported* Type Description Date Medical History ACUTE KIDNEY INJURY Medical HistoryOBSTRUCTIVE UROPATHYMedical HistoryPRE-OPERATIVE CARDIOVASCULAR EXAMINATION, BRADYARRHYTHMIAMedical HistoryBILATERAL HYDRONEPHROSISMedical HistoryBLADDER MASSMedical HistoryAAA (ABDOMINAL AORTIC ANEURYSM)Medical History TOBACCO ABUSEMedical HistoryDEMENTIAMedical HistorySUNDOWNINGMedical History VITAMIN B 12 DEFICIENCYMedical HistoryFOLIC ACID DEFICIENCYSurgical History KIDNEY STONE REMOVEDHospitalization HistoryACUTE KIDNEY INJURY, 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, BLADDER MASS05/16/22 [employer] Other [facility] general Narrative - Reported* Type Description Date Medical History ACUTE KIDNEY INJURY Medical HistoryOBSTRUCTIVE UROPATHYMedical HistoryPRE-OPERATIVE CARDIOVASCULAR EXAMINATION, BRADYARRHYTHMIAMedical HistoryBILATERAL HYDRONEPHROSISMedical HistoryBLADDER MASSMedical HistoryAAA (ABDOMINAL AORTIC ANEURYSM)Medical History TOBACCO ABUSEMedical HistoryDEMENTIAMedical HistorySUNDOWNINGMedical History VITAMIN B 12 DEFICIENCYMedical HistoryFOLIC ACID DEFICIENCYSurgical History KIDNEY STONE REMOVEDSurgical HistoryEVARHospitalization HistoryACUTE KIDNEY INJURY, 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, BLADDER MASS05/16/22 [employer] Other [place] general Narrative - Reported* Type Description Date Medical History ACUTE KIDNEY INJURY Medical HistoryOBSTRUCTIVE UROPATHYMedical HistoryPRE-OPERATIVE CARDIOVASCULAR EXAMINATION, BRADYARRHYTHMIAMedical HistoryBILATERAL HYDRONEPHROSISMedical HistoryBLADDER MASSMedical HistoryAAA (ABDOMINAL AORTIC ANEURYSM)Medical History TOBACCO ABUSEMedical HistoryDEMENTIAMedical HistorySUNDOWNINGMedical History VITAMIN B 12 DEFICIENCYMedical HistoryFOLIC ACID DEFICIENCYSurgical History KIDNEY STONE REMOVEDSurgical HistoryEVARSurgical HistoryTURBT, CYSTOSCOPY 09/12/2022Surgical HistoryCYSTOSCOPY07/30/2022Surgical HistorySTENT OVER AORTIC ANEURYSM06/2022Hospitalization HistoryACUTE KIDNEY INJURY, 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, BLADDER MASS05/16/22Hospitalization HistorySEE ABOVE [employer] Other Hospital Discharge instructions No data available for this section [facility] Progress note No data available for this section [facility] reason for referral (narrative)* Consultation (Routine) - AuthorizedSpecialtyDiagnoses / ProceduresReferred By ContactReferred To ContactCardiac Rehabilitation Diagnoses Coronary artery disease involving [place] coronary artery of [place] heart without angina pectoris S/P PTCA (percutaneous transluminal coronary angioplasty) ST elevation myocardial infarction (STEMI), unspecified artery (Multi) Teo Al MD [address] [address], [place] [phone] Referral [facility]StatusRe[facility] DateExpiration DateVisits RequestedVisits [id number] Specialty Services Required / Scheduling Instructions [place] * PFT (Routine) - AuthorizedSpecialtyDiagnoses / ProceduresReferred By Contact Referred To Contact Diagnoses Paroxysmal atrial fibrillation (Multi) High risk medication use Procedures Complete Pulmonary Function Test (Spirometry/DLCO/Lung Volumes) Teo Al MD 3 [facility] 2, [address] [address] Referral IDStatusReasonHampton DateExpiration DateVisits RequestedVisits [id number]/17/20249/17/202511 * Imaging (Routine) - AuthorizedSpecialtyDiagnoses / ProceduresReferred By ContactReferred To ContactRadiology Diagnoses Paroxysmal atrial fibrillation (Multi) High risk medication use Procedures XR chest 2 views Teo Al MD [address], [place] [address] [place] [address] Referral IDStatusReasonStart DateExpiration DateVisits RequestedVisits [id number] Perform Procedure * Consultation (Routine) - AuthorizedSpecialtyDiagnoses / ProceduresReferred By ContactReferred To ContactCardiology Diagnoses Paroxysmal atrial fibrillation (Multi) Procedures Follow Up In Cardiology Teo Al MD [address], [place] [address] [place] [address] Teo Al MD [address], [place] [address] [place] [address] Referral IDStatusReasonStart DateExpiration DateVisits RequestedVisits [id number]/17/20249/17/202511 * Cardiovascular (Routine) - AuthorizedSpecialtyDiagnoses / ProceduresReferred By ContactReferred To Contact Diagnoses Paroxysmal atrial fibrillation (Multi) Procedures ECG 12 Lead Teo Al MD [address], [place] [address] [place], [place] [id number] Referral IDStatusReasonStart DateExpiration DateVisits RequestedVisits [id number]/17/20249/17/202511 * Cardiovascular (Routine) - AuthorizedSpecialtyDiagnoses / ProceduresReferred By ContactReferred To Contact Diagnoses Paroxysmal atrial fibrillation (Multi) Procedures ECG 12 Lead Teo Al MD [address] [facility] [address], [address] [address] Referral IDStatusReasonStart DateExpiration DateVisits RequestedVisits [id number]/17/20249/ [facility] Work Phone: Reason for referral (narrative)No reason for referral information availableDayton [facility]opathic Hospital Work Phone: Reason for visit Narrative* CV Imaging (Routine) - AuthorizedSpecialtyDiagnoses / ProceduresReferred By ContactReferred To ContactCardiology Diagnoses ST elevation myocardial infarction (STEMI), unspecified artery (Multi) Cardiomyopathy, ischemic Coronary artery disease involving [place] coronary artery of [place] heart without angina pectoris S/P PTCA (percutaneous transluminal coronary angioplasty) Procedures Transthoracic Echo Limited IA ECHO TRANSTHORC R-T 2D W/WO M-MODE REC F-UP/LMTD IA DOPPLER ECHO COLOR FLOW VELOCITY MAPPING IA DOPPLER ECHO PULSE WAVE W/SPECTRAL F-UP/LMTD STD Teo Al MD [address] [place] [address] [address], [address] [address] Phone: tel: fax: Referral IDStatusRemalouStcovington DateExpiration DateVisits RequestedVisits [id number] Perform Procedure [facility] Work Phone: Summary Purpose Family History [...] 10:49 AM10/04/2024 3:24 PMNameRelationshipHealthcare Agent Relationship John MonicaSpousePrimary Decision Maker* Antonio AndersonChildSecondary Decision Maker* Lindy AndersonChildSecondary Decision Maker* TypeDate RecordedPatient RepresentativeExplanationPower of Edbjjhqy61/4/2025 10:55 AM Chief Complaint and Reason for Visit Chief [...] I71.4 1 YR F/U AAA; CTA AT [facility] Chief Complaint I71.4 1 YR F/U AAA; CTA AT [facility] RENAL 6 month f/uReason for VisitStatus post [...] 232024 2:22pm Chronic kidney disease, stage 3b October 15th, 2025 2:22pm Hyperlipidemia March 09, 2025 2 :22pm Hypertensive nephropathy March 09 025 2:22pm Hypokalemia March 09, 2025 2 [...] section and content) DATE CREATED AUTHOR 05/12/2021 [facility] Dairy Equipment Specialist DATE CREATED AUTHOR AUTHOR'S ORGANIZ ATION 09/23/2022 [facility] DATE CREATED AUTHOR AUTHOR'S ORGANIZ ATION 01/23/2023 [facility] DATE CREATED AUTHOR AUTHOR'S ORGANIZ ATION 01/23/2023 [employer] DATE CREATED AUTHOR AUTHOR'S ORGANIZ ATION 08/03/2024 [facility] DATE CREATED AUTHOR AUTHOR'S ORGANIZ ATION 08/14/2024 [facility] DATE CREATED AUTHOR AUTHOR'S ORGANIZ ATION 10/07/2024 [facility] DATE CREATED AUTHOR AUTHOR'S ORGANIZ ATION 10/08/2024 [facility] DATE CREATED AUTHOR AUTHOR'S ORGANIZ ATION 10/12/2024 [facility] DATE CREATED AUTHOR AUTHOR'S ORGANIZ ATION 11/10/2024 [facility] DATE CREATED AUTHOR AUTHOR'S ORGANIZ ATION 11/12/2024 [facility] DATE CREATED AUTHOR AUTHOR'S ORGANIZ ATION 11/17/2024 [facility] DATE CREATED AUTHOR AUTHOR'S ORGANIZ ATION 12/15/2024 [facility] DATE CREATED AUTHOR AUTHOR'S ORGANIZ ATION 03/30/2025 [facility] DATE CREATED AUTHOR AUTHOR'S ORGANIZ ATION 04/04/2025 [facility] DATE CREATED AUTHOR AUTHOR'S ORGANIZ ATION 04/05/2025 [facility] Patient Care team informatio n [...] Active Start: October 11, 2024 Margarito Valentine MDAttclara Provider, Other ProviderActiveStart: October 11, 2024 Team [...] Active Start: January 14, 2024 Willy Lambert , MDAttending Provider, Other ProviderActiveStart: January 14, 2024 Team Status: Inactive Member Role Status Dates Stanley Emerson MD Primary Care Provider Active Start: January 16, 2024 End: January 23, 2024W Dariusz Pruett , DOAdmit Provider, Attending Provider ActiveStart: January 16, [...] ProviderActiveStart: January 16, 2024 End: January 23, 2024Ronald Martinez MDOther ProviderActiveStart: January 16, 2024 End: January 23, 2024Bernabe Cr DOOther ProviderActiveStart: January 16, 2024 End: January 22Be Mosley ProviderActiveStart: January 16, 2024 End: January 22shea Zambrano MDOther ProviderActiveStart: January 16, 2024 End: January 23, 2024NaBe Rosenberg ProviderActiveStart: January 16, 2024 End: January 23, 2024Roseann Velasco APRNOther ProviderActiveStart: January 16, 2024 End: January 23, 2024Jagjit Swenson MDOther ProviderActiveStart: January 16, 2024 End: January 22angeles Sanford MDOther ProviderActiveStart: January 16, 2024 End: January 23, 2024Be Brown ProviderActiveStart: January 16, 2024 End: January 23, 2024Sakate Tran MDOther ProviderActiveStart: January 16, 2024 End: January 23, 2024Michamilton Masterson DOOther ProviderActiveStart: January 16, 2024 End: January 23, 2024Kyle Ivy MDOther ProviderActiveStart: January 16, 2024 End: January 23, 2024Jad Jaffe MDOther ProviderActiveStart: January 16, 2024 End: January 22ayah Hernandez NEWS ASSISTANT-COther ProviderActiveStart: January 16, 2024 End: January 22dsusi Sandra APRNOther ProviderActiveStart: January 16, 2024 End: January 23, 2024Rob Almazan MDOther ProviderActiveStart: January 16, 2024 End: January 23, 2024Danielito Claros MDOther ProviderActiveStart: January 16, 2024 End: January 22Be Avila ProviderActiveStart: January 16, 2024 End: January 23, 2024Be Rios ProviderActiveStart: January 16, 2024 End: January 22jennifer Garcia MDOther ProviderActiveStart: January 16, 2024 End: January 23, 2024Margo Edgard , DOOther ProviderActiveStart: January 16, 2024 End: [...] ProviderActiveStart: January 16, 2024 End: January 23, 2024Sagregory Moore RNOther ProviderActiveStart: January 16, 2024 End: January 23, 2024 Team Status: Active Member Role Status Dates Stanley Emerson MD Primary Care Provider Active Start: January 16, 2024 Nas Pruett DOOther ProviderActiveStart: January 16, 2024 Dora Prado , AQUATIC LABORER ACNP-BCOther ProviderActiveStart: January 16, 2024 Isaac Edwards [...] MDOther ProviderActiveStart: January 23, 2024 Khanh Deluca DOOther ProviderActiveStart: January 23, 2024 Ronald Martinez [...] ProviderActiveStart: January 23, 2024 Vidya Hernandez , NEWS ASSISTANT-COther ProviderActiveStart: January 23, 2024 Valdo Sandra , [...] MDOther ProviderActiveStart: January 23, 2024 Khanh Deluca DOOther ProviderActiveStart: January 23, 2024 Ronald Martinez [...] ProviderActiveStart: January 23, 2024 Vidya Hernandez , NEWS ASSISTANT-COther ProviderActiveStart: January 23, 2024 Valdo Sandra , [...] , DOOther ProviderActiveStart: January 23, 2024 Alonso Louisein , DOOther ProviderActiveStart: January 23, 2024 Humberto [...] Emerson MD Primary Care Provider Active HUMA Garcia-Marlenatenjae ProviderActive Team Status: Inactive Member Role Status Dates Stanley Emerson MD Primary Care Provider Active Arabella Bills ProviderActiveMarilyn Almonte Provider Active Team Status: [...] 2024Team MemberRelationshipSpecialtyStart DateEnd Date Stanley Emerson MD [address] [address] PCP - Rgftwsh99/23/22Team MemberRelationshipSpecialtyStart DateEnd Date Stanley Emerson MD [address] [place] [address] PCP - ACO [facility]10/17/22 Stanley Emerson MD [facility] [place] [address] PCP - GeneralFamily Medicine11/20/22 Dora Santiago LPN Licensed Practical NurseFamily Medicine12/22/23Team MemberRelationshipSpecialty Start DateEnd Date Stanley Emerson MD [address] [facility] [place] [address] PCP - ACO [facility]10/17/22 Stanley Emerson MD [address] [place] [phone] PCP - GeneralFamily Medicine11/20/22 Dora Santiago LPN [facility] Medicine12/22/23 Team Status: Inactive Member Role Status Dates Stanley Emerson MD Primary Care Provider Active Start: January 16, 2024 End: January 23, 2024W Mildred Starks Provider, Attending Provider ActiveStart: January 16, 2024 End: January 22lexnadine Randle RNOther ProviderActiveStart: January 16, 2024 End: January 22lionel Alvaerz RNOther ProviderActiveStart: January 16, 2024 End: January 23, 2024Micmaxine Delgado RNOther ProviderActiveStart: January 16, 2024 End: January 23, 2024Momanny Rogel RNOther ProviderActiveStart: January 16, 2024 End: January 23, 2024Daisha Li RNOther ProviderActiveStart: January 16, 2024 End: January 22rosalba Berrios MDOther ProviderActiveStart: January 16, 2024 End: January 22roberto Deluca DOOther ProviderActiveStart: January 16, 2024 End: January 23, 2024Ronald Martinez MDOther ProviderActiveStart: January 16, 2024 End: [...] Hammer ProviderActiveStart: January 16, 2024 End: January 22asschris Sanford MDOther ProviderActiveStart: January 16, 2024 End: January 23, 2024Be Brown ProviderActiveStart: January 16, 2024 End: January 23, [...] January 16, 2024 End: January 23, 2024Be Rios ProviderActiveStart: January 16, 2024 End: January 22Be Pope ProviderActiveStart: January 16, 2024 End: January 23, [...] January 16, 2024 End: January 23, 2024Be Chan ProviderActiveStart: January 16, 2024 End: January 23, 2024Rogelio Rai MDOther ProviderActiveStart: January 16, 2024 End: January 23, 2024Elena Turovskaya , APRNOther ProviderActiveStart: January 16, 2024 End: [...] March 08, 2024 End: March 08rosalio Bailey APRNAtrafael ProviderActiveStart: March 08, 2024 End: March 08, 2024Team MemberRelationshipSpecialtyStart DateEnd Date Stanley Emerson MD [address] [place] [address] (Fax) PCP - ACO [facility]10/17/22 Stanley Emerson MD [address] [place] [phone] PCP - GeneralFamily Medicine11/20/22 Dora Santiago LPN Licensed Practical NurseFamily Medicine12/22/23Team MemberRelationshipSpecialty Start DateEnd Date Stanley Emerson MD [address] [address] (Fax) PCP - ACO [facility]10/17/22 Stanley Emerson MD [address] [address] (Fax) PCP - GeneralFamily Medicine11/20/22 Dora Santiago LPN Licensed Practical NurseFamily Medicine12/22/23Team MemberRelationshipSpecialty Start DateEnd Date Stanley Emerson MD [address] [place] [address] (Fax) PCP - [facility]CO [facility]10/17/22 Stanley Emerson MD [address] [place] [address] (Fax) PCP - GeneralFamily Medicine11/20/22 Dora Santiago LPN Licensed Practical NurseFamily Medicine12/22/23Team MemberRelationshipSpecialty Start DateEnd Date Stanley Emerson MD [address] [place] [address] (Fax) PCP - [facility]10/17/22 Stanley Emerson MD [address] [place] [address] (Fax) PCP - GeneralFamily Medicine11/20/22 Dora Santiago LPN Licensed Practical NurseFamily Medicine12/22/23Team MemberRelationshipSpecialty Start DateEnd Date Stanley Emerson MD [address] [place] [address] (Fax) PCP - [facility]10/17/22 Stanley Emerson MD [address] [place] [address] (Fax) PCP - GeneralFamily Medicine11/20/22 Dora Satniago LPN Licensed Practical NurseFamily Medicine12/22/23Team MemberRelationshipSpecialty Start DateEnd Date Stanley Emerson MD [address] [place] [address] PCP - Eajdxrh87/23/22Team MemberRelationshipSpecialtyStart DateEnd Date Stanley Emerson MD [address] [place] [address] (Fax) PCP - ACO [facility]10/17/22 Stanley Emerson MD [address] [place] [address] (Fax) PCP - GeneralFamily Medicine11/20/22 Dora Santiago LPN Licensed Practical NurseFamily Medicine12/22/23Team MemberRelationshipSpecialty Start DateEnd Date Stanley Emerson MD [address] [place] [address] (Fax) PCP - ACO [facility]10/17/22 Stanley Emerson MD [address] [place] [address] (Fax) PCP - GeneralFamily Medicine11/20/22 Dora Santiago LPN Licensed Practical Nursemily Medicine12/22/23Team MemberRelationshipSpecialty Start DateEnd Date Stanley Emerson MD [address] [place] [address] PCP - Zqummjm76/23/22Team MemberRelationshipSpecialtyStart DateEnd Date Stanley Emerson MD [address] [place] [address] (Fax) PCP - [facility]10/17/22 Stanley Emerson MD [address] [place] [address] (Fax) PCP - GeneralFamily Medicine11/20/22 Dora Santiago LPN Licensed Practical NurseFamily Medicine12/22/23Team MemberRelationshipSpecialty Start DateEnd Date Stanley Emerson MD [address] [place] [address] (Fax) PCP - [facility]10/17/22 Stanley Emerson MD [address] [place] [address] (Fax) PCP - GeneralFamily Medicine11/20/22 Dora Santiago LPN Licensed Practical NurseFamily Medicine12/22/23Team MemberRelationshipSpecialty Start DateEnd Date Stanley Emerson MD [address] [place] [address] (Fax) PCP - ACO [facility]10/17/22 Stanley Emerson MD [address] [place] [address] (Fax) PCP - GeneralFamily Medicine11/20/22 Dora Santiago LPN Licensed Practical NurseFamily Medicine12/22/23Team MemberRelationshipSpecialty Start DateEnd Date Stanley Emreson MD [address] [place] [address] (Fax) PCP - ACO [facility]10/17/22 Stanley Emerson MD [address] [place] [address] (Fax) [facility] - [facility]11/20/22 Dora Santiago LPN Licensed Practical NurseChelsea [facility] Hospital Medicine12/22/23Team MemberRelationshipSpecialty Start DateEnd Date Stanley Emerson MD [address] [place] [address] PCP - Nirynmj09/23/22Team MemberRelationshipSpecialtyStart DateEnd Date Stanley Emerson MD [address] [place] [address] PCP - Curkfyx26/23/22 Team Status: Inactive Member Role Status Dates Stanley Emerson MD Primary Care Provider Active Start: May 21, 2024 End: May 21, 2024Teo Al MDAttclara ProviderActiveStart: May 21, 2024 End: May 21, 2024Team MemberRelationshipSpecialtyStart DateEnd Date Stanley Emerson MD [address] [place] [address] (Fax) PCP - ACO [facility]10/17/22 Stanley Emerson MD [address] [place] [address] (Fax) PCP - [facility] Medicine11/20/22 Joi Zhang LPN 08/26/24Team MemberRelationshipSpecialtyStart DateEnd Date Stanley Emerson MD [address] [place] [address] (Fax) PCP - [facility]CO [facility]10/17/22 Stanley Emerson MD [address] [place] [address] (Fax) PCP - GeneralFamily Medicine11/20/22 Dora Santiago LPN Licensed Practical NurseFamily Medicine Joi Zhang LPN 08/26/24Team MemberRelationshipSpecialtyStart DateEnd Date Stanley Emerson MD [facility] [address] [place] [address] PCP - Lsvmxfx84/23/22Team MemberRelationshipSpecialtyStart DateEnd Date Stanley Emerson MD [address] [place] [address] (Fax) PCP - [facility]CO [facility]10/17/22 Stanley Emerson MD [address] [place] [address] (Fax) PCP - GeneralFamily Medicine11/20/22 Joi Zhang LPN 08/26/24Team MemberRelationshipSpecialtyStart DateEnd Date Stanley Emerson MD [address] [place] [address] (Fax) PCP - [facility]CO [facility]10/17/22 Stanley Emerson MD [address] [place] [address] (Fax) PCP - Generalmily Medicine11/20/22 Joi Zhang LPN 08/26/24Team MemberRelationshipSpecialtyStart DateEnd Date Stanley Emerson MD [address] [place] [address] (Fax) PCP - [facility]CO [facility]10/17/22 Stanley Emerson MD [address] [facility] [address] [place] [address] (Fax) PCP - GeneralFamily Medicine11/20/22 Joi Zhang LPN 08/26/24Team MemberRelationshipSpecialtyStart DateEnd Date Stanley Emerson MD [address] [place] [address] (Fax) PCP - General10/02/24Team MemberRelationshipSpecialtyStart DateEnd Date Stanley Emerson MD [address] [place] [address] (Fax) PCP - General10/02/24Team MemberRelationshipSpecialtyStart DateEnd Date Stanley Emerson MD [address] [place] [phone] PCP - Tqinmth02/23/22 Ruby Montana MD [address] [facility] [facility] [address] [place] [address] CardiologistElectrophysiology10/04/24Team MemberRelationshipSpecialtyStart Date End Date Stanley Emerson MD [address] [facility] [place] [address] (Fax) PCP - ACO Reach10/17/22 Stanley Emerson MD [address] [facility] [address] [place] [address] (Fax) PCP - GeneralFamily Medicine11/20/22 Joi Zhang LPN 08/26/24Team MemberRelationshipSpecialtyStart DateEnd Date Stanley Emerson MD [address] [place] [address] (Fax) PCP - ACO Reach10/17/22 Stanley Emerson MD [address] [place] [address] (Fax) PCP - GeneralFamily Medicine11/20/22 Joi Zhang LPN 08/26/24Team MemberRelationshipSpecialtyStart DateEnd Date Stanley Emerson MD [address] [place] [address] (Fax) PCP - ACO Reach10/17/22 Stanley Emerson MD [address] [place] [address] (Fax) PCP - GeneralFamily Medicine11/20/22 Joi Zhang LPN [address] [place] [address] 08/26/24Team MemberRelationshipSpecialtyStart DateEnd Date Stanley Emerson MD [address] [place] [address] (Fax) PCP - ACO Reach10/17/22 Stanley Emerson MD [address] [place] [address] (Fax) PCP - GeneralFamily Medicine11/20/22 Joi Zhang LPN [address] [place] [address] 08/26/24Team MemberRelationshipSpecialtyStart DateEnd Date Stanley Emerson MD [address] [place] [address] (Fax) PCP - ACO Reach10/17/22 Stanley Emerson MD [address] [place] [address] (Fax) PCP - GeneralFamily Medicine11/20/22 Joi Zhang LPN [address] [place] [address] 08/26/24Team MemberRelationshipSpecialtyStart DateEnd Date Stanley Emerson MD [address] [place] [address] (Fax) PCP - ACO [facility]10/17/22 Stanley Emerson MD [address] [place] [address] (Fax) PCP - GeneralFamily Medicine11/20/22 Dora Santiago LPN [address] [place] [address] Licensed Practical Nursemily Medicine Joi Zhang LPN [address] [place] [address] 08/26/24Team MemberRelationshipSpecialtyStart DateEnd Date Stanley Emerson MD [address] [place] [address] (Fax) PCP - ACO [facility]10/17/22 Stanley Emerson MD [address] [place] [address] (Fax) PCP - GeneralFamily Medicine11/20/22 Dora Santiago LPN [address] [place] [address] Licensed Practical NurseFamily Medicine Joi Zhang LPN [address] [place] [address] 08/26/24Team MemberRelationshipSpecialtyStart DateEnd Date Stanley Emerson MD [address] [place] [address] [place] [address] (Fax) PCP - ACO Reach10/17/22 Stanley Emerson MD [address] [place] [address] (Fax) PCP - GeneralFamily Medicine11/20/22 Dora Santiago LPN [address] [place] [address] Licensed Practical NurseFamily Medicine Christina Goddard LPN Licensed Practical NurseFamily Medicine/06/18 Joi Zhang LPN [address] [facility] [address] [place] [address] 08/26/24Team MemberRelationshipSpecialtyStart DateEnd Date Stanley Emerson MD [address] [facility] [address] [place] [address] (Fax) PCP - ACO Reach10/17/22 Stanley Emerson MD [address] [facility] [address] [place] [address] (Fax) PCP - GeneralFamily Medicine11/20/22 ZhangJoi, [employer] [address] [place] [address] 08/26/24Team MemberRelationshipSpecialtyStart DateEnd Date Stanley Emerson MD [address] [place] [address] PCP - Aiummoc91/23/22 Ruby Montana MD [address] [facility], [address] [place], [place] [id number] CardiologistElectrophysiology10/04/24 REASON FOR VISIT (unrecogniz ed section and content) ReasonCommentsekg visitSpecialtyDiagnoses / ProceduresReferred By Contact Referred To Contact Diagnoses Paroxysmal atrial fibrillation (Multi) Procedures ECG 12 Lead Teo Al MD [address] [facility] [address], [address] [place] [address] Referral IDStatusReasonStart DateExpiration DateVisits RequestedVisits [id number]/17/20249/[id number]wDhdemlux [facility] [place] pecialtyDiagnoses / ProceduresReferred By Contact Referred To Contact Diagnoses Paroxysmal atrial fibrillation (Multi) Procedures ECG 12 Lead Teo Al MD [address] [facility] [address], [address] [place] [address] Referral IDStatusReasonStart DateExpiration DateVisits RequestedVisits [id number]/17/20249/[id number] RefillReason CommentsFollow-ef6yYvdjkxmjmNxwvvaghm / ProceduresReferred By ContactReferred To ContactCardiology Diagnoses Paroxysmal atrial fibrillation (Multi) Procedures Follow Up In Cardiology Teo Al MD [address] [facility] [address], [place] [id number] Phone: tel: fax: Teo Al MD [address] [place] [address] 2, [place] [address] Phone: tel: fax: Referral IDStatusReasonStart DateExpiration DateVisits RequestedVisits [id number]/17/20249/251163RijyldLuddqlnwNosfla Exam SpecialtyDiagnoses / ProceduresReferred By ContactReferred To ContactCardiology Diagnoses Cardiomyopathy, ischemic Procedures Follow Up In Cardiology Teo Al MD [address] [place] [address] 2, [place] [address] Phone: tel: fax: Teo Al MD [address] [place] [address] 2, [place] [address] Phone: tel: fax: Referral IDStatusReasonStcovington DateExpiration DateVisits RequestedVisits [id number]/27/202412/692428IpfswhDbpktqdmZjmzve-lt6 month follow up abnormal testingSpecialtyDiagnoses / ProceduresReferred By Contact Referred To Contact Diagnoses Paroxysmal atrial fibrillation (Multi) Procedures ECG 12 Lead Teo Al MD [address] [place] [address] [address], [place] [phone] Phone: tel: fax: Referral IDStatusKeylaasonHampton DateExpiration DateVisits RequestedVisits [id number]/18/20254/[id number]feotvo ReasonCommentsNew Patient VisitPatient is present to establish care . Patient was referred by cardiology for Paroxysmal atrial fibrillation.SpecialtyDiagnoses / ProceduresReferred By ContactReferred To ContactCardiology Diagnoses Cardiomyopathy, ischemic Teo Al MD [address] [facility] [address], [facility] [address] [place] [address] Phone: tel: fax: Ruby Montana MD [address] [facility], [address] [place] [address] Phone: tel: fax: Referral [facility]Status[facility] DateExpiration DateVisits RequestedVisits [id number] Specialty Services Required [id number] months follow-up Cardiomyopathy, ischemicSpecialtyDiagnoses / ProceduresReferred By ContactReferred To Contact Cardiology Diagnoses Cardiomyopathy, ischemic Procedures Follow Up In Cardiology Teo Al MD [address] [facility] [address], [address] [address] Phone: tel: fax: Teo Al MD [address] [facility] [address], [address] [address] Phone: tel: fax: Referral IDStaEfrainHampton DateExpiration DateVisits RequestedVisits [id number]/6/20253/ Goals (unrecognized section and content) Goals may [...] * 0839 (Given - Provider: Jessy Wayne, RN) * 0835 (Given - Provider: Coco Mirza RN) atorvastatin (LIPITOR) tablet 80 mg 80 mg, Oral, NIGHTLY, First dose on 10/02/24 at 2100, Until Discontinued * 2038 (Given - Provider: Gi Berrios RN) * 1939 (Given - Provider: Milton Kaiser RN) * 2100 (Due) azithromycin (ZITHROMAX) 500 mg in sodium chloride 0.9 % 250 mL IVPB (Qufs4Wrl) (COMPLETED) 500 mg, IntraVENous, EVERY 24 HOURS, 2 doses, First dose on 10/02/24 at 1200, Last dose on 10/03/24 at 1200, Antimicrobial Indications: Pneumonia (CAP), CAP duration of therapy: 3 days, Use 20mm (Blue) Avrj7Joc Adapter Preparation instructions: Attach medication vial to one 20mm (Blue) Fjky6Ija adapter. James fluid bag with adapter, mix, and administer per order. * 1145 (New Bag - Provider: Mar Gonzalez, ROCIO) * 1253 (Stopped - Provider: Mar Gonzalez, ROCIO) cefTRIAXone (ROCEPHIN) 1,000 mg in sterile water [...] RN) * 0836 (Given - Provider: Coco Mirza, ROCIO) ferrous sulfate (IRON 325) tablet 325 mg [...] RN) * 0836 (Given - Provider: Coco Miraz, ROCIO) QUEtiapine (SEROQUEL) tablet 25 mg 25 mg, Oral, NIGHTLY, First dose on 10/02/24 at 2100, Until Discontinued * 2038 (Given - Provider: Gi Berrios, ROCIO) * 194 (Given - Provider: Milton Kaiser, ROCIO) * 2100 (Due) rivastigmine (EXELON) 4.6 MG/24HR 1 patch [...] ROCIO) * 0841 (Given - Provider: Jessy Wayne, ROCIO) * 194 (Given - Provider: Milton [...] RN) * 0836 (Given - Provider: Coco Mirza, ROCIO) potassium chloride (KLOR-CON M) extended release tablet [...] BE BASED ON THE PRIMARY CLINICAL RECORDS. [employer] provides no warranty or guarantee of the accuracy or completeness of information in this document."
== END 2025-04-16 03:57 | disposition home or self-care (01) ==
PROVIDERS: Emergency Provider Internal Medicine; PCP Family Medicine
DX: T83.098A Other mechanical complication of other urinary catheter, initial encounter (principal); F17.200 Nicotine dependence, unspecified, uncomplicated
CPT/HCPCS: 51702; 51798; 99284

== ENCOUNTER 2025-04-18 04:13 | Emergency (ER) | payer MEDICARE, OTHER, SELFPAY ==
--- OUTSIDE RECORDS SUMMARY | 2019-12-10 06:15 | XMS_ITS | Continuity of Care Document ---
Author Organization [facility] Address [address] [place] [phone] Phone Care Team Providers Care Nail Technician Name Role Phone Alberto Farrell Unavailable Unavailable Procedures Procedure Date Covid Testing [facility] Results Test Name Date and Time Measure Units Reference Range Abnormal Flag Status Comments Panel Description: SARS-CoV-2, KARI Final SARS-CoV- 2, KARI 020 18:04:00 Not Detected Not Detected Final This test was developed and its performance characteristics determinedby [employer]. This test has not been FDA cleared orapproved. This test has been authorized by FDA under an Emergency UseAuthorization (EUA). This test is only authorized for the duration oftime the declaration that circumstances exist justifying theauthorization of the emergency use of in vitro diagnostic tests fordetection of SARS-CoV-2 virus and/or diagnosis of COVID-19 infectionunder section 564(b)(1) of the Act, 21 U.S.C. 360bbb-3(b)(1), unlessthe authorization is terminated or revoked sooner.When diagnostic testing is negative, the possibility of a falsenegative result should be considered in the context of a patient'srecent exposures and the presence of clinical signs and symptomsconsistent with COVID-19. An individual without symptoms of COVID-19and who is not shedding SARS-CoV-2 virus would expect to have anegative (not detected) result in this assay.Performed by:[facility] ([facility]) Panel Description: SARS-CoV-2 Antibody, IgM [facility] SARS-CoV- 2 Antibody, IgM 020 16:11:00 Negative Negative Final This sample do es not contain detectable SARS-CoV-2 IgM antibodies.This negative result does not rule out SARS-CoV-2 infection.Correlation with epidemiologic risk factors and other clinical andlaboratory findings is recommended. Serologic results should not beused as the sole basis to diagnose or exclude recent [id number].P erformed by:[facility] ([facility]) Panel Description: SARS-CoV-2 Antibody, IgG Fin al SARS-CoV- 2 Antibody, IgG 020 07:12:00 Negative Negative Final This sample do es not contain detectable SARS-CoV-2 IgG antibodies.This negative result does not rule out SARS-CoV-2 infection.Correlation with epidemiologic risk factors and other clinical andlaboratory findings is recommended. Serologic results should not beused as the sole basis to diagnose or exclude recent [id number].T his assay was performed using the [employer] SARS-CoV-2 IgG assay.Performed by:[facility] ([facility]) Advance Directives Directive Yes / No Effective Date File Name No Information Encounters Encounter Description Practice Location Reason(s) For Visit Diagnoses Date Provider Providers Copied on Encounter [facility], [address] [place] [address], [id number], [place] tel:[phone] COVID ECHD Encounter for screening for other viral diseases Visci DO Alberto. [address] [place] [address], [id number], [place]. tel:[phone] Family History Family Member Type Diagnosis Age At Onset No Information Payers Payer name Insurance type Covered democrat ID Authoriza tion(s) Medicare [facility] [id number] Social History Type Description Quantity Date Captured Comments Alcohol Use Details Unknown Caffeine Use Details Unknown Tobacco Use Status No Information Smoking Status No Information Sex Male Sexual Orientation Straight or heterosexual Gender Identity Male Chief Complaint And Reason For Visit No Information Reason For Referral Reason For Referral No Information History Of Present Illness Encounter Date Complaint History Of Prese nt Illness No Information Functional Status Date Functional Assessmen t No Information Instructions Date Instruction Additional Infor mation No Information Assessments Type Assessment Date assessment Encounter for screening for othe r viral diseases Patient Care Teams Name Effective Dates (start - stop) Status Members No Information
[2025-04-18 04:18] VITALS: BP 126/76; PULSE 68; TEMP 36.8; O2SAT 99; BMI 30.7
--- NOTE | 2025-04-18 04:32 | PC.NURSE ---
Villarreal is attached to a leg bag which is draining a tiny amount of light pink clear urine. Pt is on blood thinners
--- NOTE | 2025-04-18 04:40 | ED_ITS ---
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 He now returnas about 48 hours later stating that once again his catheter is not draining. No fever or chills. No abdominal pain or flank pain. No nausea or vomiting. He takes plavix daily. Related Data Home Medications ?Medication ?Instructions ?Recorded ?Confirmed albuterol sulfate 90 mcg/actuation 1 inh inhalation Q6 H PRN 04/13/23 04/18/25 aerosol inhaler bronchospasm amiodarone 200 mg tablet 200 mg PO Q12H 04/28/2403/27 atorvastatin 80 mg tablet 80 mg PO QPM 04/28/24 clopidogrel 75 mg tablet 75 mg PO DAILY 04/28/2403/27 furosemide 40 mg tablet (Lasix) 40 mg PO DAILY 4 04/18/25 warfarin 2 mg tablet 2 mg PO DAILY 04/28/2404/18 methimazole 5 mg tablet 5 mg PO BID 06/17/24 5 aripiprazole 2 mg tablet 1 mg PO .QHS 10/01/24 cephalexin 250 mg capsule 250 mg PO .MWF 10/01/2403/27 ferrous sulfate 325 mg (65 mg 325 mg PO BID 10/01/24 1 06/18/24 iron) tablet metoprolol succinate 25 mg 25 mg PO .QD 10/01/2404/18 tablet,extended release 24 hr donepezil 10 mg tablet mg 04/18/25 quetiapine 25 mg tablet mg 04/18/25 Allergies Allergy/AdvReac Type Severity Reaction Status Date / Time No Known Drug Allergies Allergy Verified 04/18/25 04:23 [facility] Medical History (Updated 04/18/25 @ 05:08 by Sean Gross) Bladder cancer ?C67.9 - Malignant neoplasm of bladder, unspecified (ICD-10) Social History Smoking status: Current every day smoker Little interest or pleasure in doing things: not at all Feeling down, depressed, or hopeless: not at all Exam Narrative Exam Narrative: Nurses notes and vital signs reviewed and patient is not hypoxic. afebrile General: Well-appearing and in no apparent distress. Skin: Warm, dry, no pallor noted. Eye: Pupils are equal, round and EOMI. No scleral icterus. Cardiovascular: Regular Rate and Rhythm without murmur, gallop or rub. Respiratory: No accessory muscle use or respiratory distress. Lungs are clear to auscultation, no wheezing, rales or rhonchi Back: No CVA tenderness Musculoskeletal: normal ROM, no calf or popliteal tenderness, no lower extremity edema/swelling GI: Abdomen is soft, non-distended. Normal bowel sounds. No suprapubic or abdominal masses appreciated. Mild suprapubic tenderness to palpation. No rebound, guarding, or rigidity noted. Neurological: A&O x4. No cranial nerve dysfunction observed. No truncal ataxia. Moves all extremities. Sensation intact. Psychiatric: Cooperative and interactive. Normal mood and affect. Constitutional Vital Signs, click to edit/add: Last Vital Signs Temp 98.2 F 04/18/25 04:18 Pulse 68 04/18/25 04:18 Resp 16 04/18/25 04:18 BP 126/76 04/18/25 04:18 Pulse Ox 99 04/18/25 04:18 O2 Del Method Room Air 04/18/25 04:18 Course Vital Signs Vital signs: Vital Signs Temperature 98.2 F 04/18/25 04:18 Pulse Rate 68 04/18/25 04:18 Respiratory Rate 16 04/18/25 04:18 Blood Pressure 126/76 04/18/25 04:18 Pulse Oximetry 99 04/18/25 04:18 Oxygen Delivery Method Room Air 04/18/25 04:18 Temperature 98.2 F 04/18/25 04:18 Pulse Rate 68 04/18/25 04:18 Respiratory Rate 16 04/18/25 04:18 Blood Pressure 126/76 04/18/25 04:18 Pulse Oximetry 99 04/18/25 04:18 Oxygen Delivery Method Room Air 04/18/25 04:18 MDM - Male Genitourinary MDM Narrative Medical decision making narrative: Bladder scanner = >500mL retained urine ED nurse irrigated zapien catheter and there was some blood and clot - could not get the zapien to properly drain, so it had to be replaced. Nurses tried several times, used a coude catheter and still cannot advance it past the prostate despite multiple attempts. We do not have any urology coverage at [facility] today. Call placed to [facility] to discuss transfer to their facility. I spoke with the nursing supervisor intelligence analyst and they have urology coverage - I asked if they preferred an ED to ED tranfer or if they wanted to admit the patient to the floor and then consult urology - he agreed to get me in touch with the hospitalist to discuss transfer to [facility] for admission and Urology consultation. Tandem Operator at [facility] called back - they want to do ED to ED transfer instead. I spoke with Dr. Hirsch, emergency department physician, who agreed to accept this patient's transfer to their facility. He said he will make arrangements for urology to see the patient. Need for transfer was discussed with the patient and with the patient's son and they were agreeable to transfer. Call was placed to make arrangements for a S transportation via ambulance to [facility]. Discharge Plan Discharge Chief Complaint: Urogenital-Male Clinical Impression: Acute on chronic urinary retention, Urinary catheter (Zapien) change required Patient Disposition: [facility] Time of Disposition Decision: 05:34 Discharge Location: [facility]
--- OUTSIDE RECORDS SUMMARY | 2025-04-18 05:15 | XMS_ITS | Clinical Summary ---
Author Organization [facility] Address [address] [place] [address] Phone Care Team Providers Care Fish Straightener Name Role Phone Stanley Toledo MD Primary Care Provider [phone] Ruby Vickers MD Unavailable Allergies No known [...] tablet daily in the evening. Follow with [facility]. Patient will take coumadin and [...] 75 mg tablet Indications:Coronary artery disease involving yocha dehe coronary artery of yocha dehe heart without angina pectorisTake 1 tablet (75 [...] 1 CAPSULE BY MOUTH FRIDAY, FRIDAY AND [id number] donepezil (Aricept) 10 mg tablet Daily at exkvauv26/11/2025Active fexofenadine (Pham) 180 mg tablet Take 1 tablet (180 mg) by mouth once daily.Active inulin (Fiber Gummies) 2 gram tablet,chewable Chew and swallow.Active methIMAzole (Tapazole) 5 mg tablet Indications:HyperthyroidismTake 1 tablet (5 mg) by mouth once daily. 90 tablet 1116Active nitroglycerin (Nitrostat) 0.4 mg SL tablet Indications:Coronary artery disease involving yocha dehe coronary artery of yocha dehe heart without angina pectorisPlace 1 tablet (0.4 [...] 90 tablet Discontinued Active Problems ProblemNoted DateDiagnosed DuekVswvdvwr38/04/5131Hukpjxdqrbdrbal33/04/2025ody mass index (BMI) 25.0-25.9, adult10/08/2024Encounter for medication review and mivxwisxgz44/16/2025Encounter to discuss test nyjyqdt4310/08/2024Encounter to discuss treatment ugxmqqs7610/08/2024Encounter to establish care with new provider 10/08/2024Ventricular ectopy/arrhythmia, pre-operative cardiovascular exam 10/08/2024S/P PTCA (percutaneous transluminal coronary angioplasty)02/10/2024 Coronary artery disease involving yocha dehe coronary artery of yocha dehe heart without angina qikvnwdf73/17/2024aroxysmal atrial xfjhiclqeevr26/17/2024Former smoker 02/10/2024High risk medication use02/10/2024STEMI (ST elevation myocardial infarction)02/10/2024ardiomyopathy, vehkkimc25/17/8493Qmfvlhdrmchb23/18/2024 Essential asxiwaakxhik84/18/2024Stage 3b chronic kidney wetfdwi8005/12/2023 Abdominal aortic aneurysm (AAA) greater than 5.5 cm in diameter in male 11/11/2022Urinary bladder bkfjzusr32/19/2023Transient cerebral ischemic attack 05/16/2022 Resolved Problems ProblemNoted DateDiagnosed DateResolved DateBMI 26.0-26.9,adult02/10/2024 10/08/2024 Encounters DateTypeDepartmentCare XwjsWiwffbrklnh31/04/2025 11:00 AM ESTOffice Visit [address] [address] Teo Stokes MD Paroxysmal atrial fibrillation (Multi); High risk medication use; Cardiomyopathy, ischemic; Coronary artery disease involving yocha dehe coronary artery of yocha dehe heart without angina pectoris; S/P PTCA (percutaneous transluminal coronary angioplasty); Essential hypertension; Dyslipidemia; Stage 3b chronic kidney disease (Multi); Transient cerebral ischemia, unspecified type; Former smoker; Body mass index (BMI) 25.0-25.9, adult; Hyperthyroidism Discharge Disposition: Home03/29/20259735Vahhyp15/28/2025Scanned Document [facility] [address] [place] [address] Scanning, Generic Provider 03/18/2025Scanned Document [facility] [address] [place] [address] Scanning, Generic Provider 03/17/2025Telephone [address] [phone] Elaine De Luna RN 02/28/2025Scanned Document [facility] [address] [place] [address] Scanning, Generic Provider 02/02/2025Scanned Document [facility] [address] [place] [address] Scanning, Generic Provider 01/28/2025Refill [address] [phone] Teo Stokes MD Zsjhobtxpti36/05/2025Refill [address] [address] Constantin Pruett DO Hyperthyroidism (Primary Dx)from Last 3 Months Immunizations ImmunizationAdministration DatesNext DueFlu vaccine (IIV4), preservative free *Check age/dose*02/22/2021Flu vaccine, quadrivalent, high-dose, preservative free, age 65y+ (FLUZONE)03/06/2022Flu vaccine, quadrivalent, recombinant, preservative free, adult (FLUBLOK)02/22/2020Flu vaccine, trivalent, preservative free, HIGH-DOSE, age 65y+ (Fluzone)03/10/2025,05/20/2022,02/14/2021Influenza, Seasonal, Quadrivalent, Ymcdisisux19/01/2023Influenza, seasonal, injectable 03/15/2025,03/16/2022neumococcal conjugate vaccine, 20-valent (PREVNAR [...] InformationValueDate RecordedSex Assigned at BirthNot on fileLegal XqyJqgr63/29/2022 5:17 PM ESTGender IdentityNot on fileSexual OrientationNot on file Last Filed Vital Signs Vital SignReadingTime TakenCommentsBlood Jrtiggdj279/6211 10:56 AM EST Mtzon344903/29/2025 10:56 AM ESTTemperature--Respiratory Rate--Oxygen Saturation-- Inhaled Oxygen Concentration--Peuzyx09.5 kg (195 lb)03/29/2025 10:56 AM EST Ldjmbb404 cm (6' 2 )03/29/2025 10:56 AM ESTBody Mass Index25.04105/29/2024 10:56 AM EST Plan of Treatment DateTypeDepartmentCare Team (Latest Contact Info)Zgxesdswggz88/23/2026 11:20 AM EDTOffice Visit [facility] [address] [facility] [address] [place] [address] Teo Stokes MD [address] [facility] [address] [place] [address] Health MaintenanceDue DateLast DoneCommentsCreatinine Level1943Lipid Panel 1943Medicare Annual Wellness Visit (AWV)4Potassium Level 4Diabetes Nzrxdrcon26/08/1962CKD: Urine Protein Xacmdgzvk15/08/1963 Zoster Vaccines (2 of 2)/10/20247127Zlhhyjxttwbske99/14/202603/, 01/16/2024, 05/16/2022OVID-19 Vaccine ( season)/, 03/19/2024, 02/16/2023, Additional history existsTSH Level605/02/2025 DTaP/Tdap/Td Vaccines (2 - Td or Tdap)/10/2024Pneumococcal Vaccine Fmksdxhxj40/03/2024, 04/23/2021SV High Risk: (Elderly (60+) or Population)Seozsrmtb60/31/2025Influenza MtbfpxdBclmzoxav35/21/2025, 03/10/2025, 03/26/2023, Additional history existsHIB VaccinesAged OutNo [...] SCAN03/18/2025 OUTSIDE LAB SCAN02/02/2025 TRANSTHORACIC ECHO (TTE) GDIKHQGKgnyvfl24/14/2025 12:[address] elevation myocardial infarction (STEMI), unspecified artery (Multi) Cardiomyopathy, ischemic Coronary artery disease involving yocha dehe coronary artery of yocha dehe heart without angina pectoris S/P PTCA (percutaneous [...] EDT)ComponentValueRef RangeTest MethodAnalysis TimePerformed AtPathologist SignatureAV mn trqk7ooLl SYNGOAV pk vel1.38m/sSYNGOLV Biplane EF38%SYNGOLVOT diam2.23cmSYNGOMV E/A ratio0.70SYNGOMV avg E/e' ratio15.11SYNGOLV EF33%SYNGORV free wall pk S'12.40 cm/xHTBZXJGUJ66.6wlCfNCFHLMCKEl6.46cmSYNGOAortic Valve Area by Continuity of Peak Velocity1.58ni2GNROLNR pk tsaj5afZyNSUPWAeenyz Valve Area by Continuity of VTI2.91ut7IGVJAFS A4C EF31.7SYNGOSpecimen (Source)Anatomical Location / LateralityCollection Method / VolumeCollection TimeReceived Time08/06/2024 10:43 AM EDT Narrative SYNGO - 08/11/2024 5:54 PM EDT ?[address], [place] [address] ? TRANSTHORACIC ECHOCARDIOGRAM REPORT Patient Name: ? ALEX GRAJEDA ?Reading Physician: ?[id number] Mally ?Brian CASILLAS Study Date: ? 08/06/2024 ? Ordering Provider: ?[address] [place], [place] [address]LAW Mendez ?STOKES MRN/PID: ?[id number] ?Fellow: Accession#: ? [id number] ?Nurse: Date of /Age: ??1945 / 78 years Foundation Relations Manager: ?Marlyn Matthew ?RDCS, RT(R), ?RDMS, RVT Gender Assigned at ??M ? Additional Staff: : Height: ? 187.96 cm ? Admit Date: Weight: ? 92.53 kg ?Admission Status: ? Outpatient BSA / BMI: ?2.19 m2 / 26.19 ? Department Location: ??[facility] ?kg/m2 ? 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 infarction of unspecified site-I21.3 Indication: ?STEMI CPT Codes: ? Echo Limited-25158 Patient History: Smoker: ?Former. Pertinent History: A-Fib, [...] 30mmHg) PULMONIC VALVE: ?Normal Ranges: PV Max Aptrice: ? 0.6 m/s ??(0.6-0.9m/s) PV Max PG: ?1.6 mmHg [id number] Mally Torres MD Electronically signed on 08/11/2024 at 5:54:03 PM Final Procedure Note Mally Torres MD - 08/11/[address], [address], [place] [address] TRANSTHORACIC ECHOCARDIOGRAM REPORT Patient Name: ALEX GRAJEDA Reading Physician: [id number] Rosales Study Date: 08/06/2024 Ordering Provider: [id number] ALYSSIA STOKES MRN/PID: [id number] Fellow: Nurse: Date of /Age: 7 1945 / 78 years Foundation Relations Manager: Zeke BECERRACS,RT(R), RDMS, RVT Gender Assigned at M Additional Staff: : Height: 187.96 cm Admit Date: Weight: 92.53 kg Admission Status: Outpatient BSA / BMI: 2.19 m2 / 26.19 Department Location: [facility]/m2 [place] Blood Pressure: 98 /64 mmHg Study Type: TRANSTHORACIC ECHO (TTE) LIMITED Diagnosis/ICD: Atherosclerotic heart disease of yocha dehe coronary arterywithout angina pectoris-I25.10; ST elevation (STEMI) myocardial infarction of unspecified site-I21.3 Indication: STEMI CPT Codes: Echo Limited-21937 Patient History: Smoker: Former. Pertinent History: A-Fib, [...] 0.6 m/s (0.6-0.9m/s) PV Max P.6 mmHg [id number] Mally Torres MD Electronically signed on 08/11/2024 at 5:54:03 PM Final Authorizing ProviderResult TypeResult StatusTeo Stokes [facility] [place] PROCEDURESFinal ResultPerforming OrganizationAddressCity/State/ZIP CodePhone Number SYNGO from Last 3 Months or Most Recently Relevant to Health Maintenance Insurance Advance Directives For more information, please contact: [phone] (Available ) TypeDate RecordedPatient RepresentativeExplanationPower of Qxweczee64/4/2025 10:55 AM Care Teams Team MemberRelationshipSpecialtyStart DateEnd Date Stanley Toledo MD [address] [place] [phone] PCP - Ljrqgho24/23/22 Ruby Vickers MD [address] [facility] [address] [place] [address] CardiologistElectrophysiology10/04/24
--- OUTSIDE RECORDS SUMMARY | 2025-04-18 05:15 | XMS_ITS | Encounter Summary ---
Author Organization [facility] Address [address] [place] [address] Care Team Providers Care Box Finisher Name Role Phone Stanley Toledo MD Unavailable [phone] Joi Zhang LPN Unavailable Encounter Details DateTypeDepartmentCare Team (Latest Contact Info)Urortfysdhj12/11/2025Patient Outreach [facility] [address] [place] [address] Joi Zhang LPN [address] [place] [address] Social History Tobacco UseTypesPacks/DayYears UsedDateSmoking Tobacco: FormerCigarettes0.561.3 Started: 12[birth year]31/1965Smokeless Tobacco: NeverAlcohol UseStandard Drinks/Week CommentsNever0 (1 standard drink = 0.6 oz pure alcohol)B1300 Health Literacy AnswerDate RecordedHow often do you need to have someone help you when you read instructions, pamphlets, or other written material from your doctor or pharmacy? Hdggbl4612/30/2024Humiliation, Afraid, Rape, and Kick questionnaireAnswerDate RecordedWithin the [...] times a week12/31/2023How often do you attend baptist or lutheran services?Never12/31/2023o you belong to any clubs or organizations such as baptist groups, unions, fraOnefeat or athletic groups, or school groups?No12/31/2023How often do you attend meetings of the clubs or organizations you belong to?Never12/31/2023re you , , , , never , or living with a partner?Tayyoba1612/31/2023 AUDIT-CAnswerDate RecordedQ1: How often do you have [...] at all 12/31/2023HQ-2AnswerDate RecordedPatient Health Questionnaire-2 Score0 05/13/2024[facility] [place] [facility] - Occupational Stress QuestionnaireAnswerDate RecordedDo you feel stress - tense, restless, nervous, or anxious, or unable to sleep at night because yourmind is troubled all the time - these days?Only a tmmivc5412/30/2024Exercise Vital SignAnswerDate Recorded On average, how many [...] homeless or living in a fdc (including now)?No12/31/2023Sex and Gender InformationValueDate RecordedSex Assigned [...] Plan of Treatment DateTypeDepartmentCare Team (Latest Contact Info)Ccnnxsfixqm12/16/2025 2:00 PM ESTOffice Visit [facility] [address] [facility] [address] [place] [address] Stanley Toledo MD [address] [facility] [address] [place] [address] (Fax) documented as of this encounter Visit Diagnoses Diagnosis Stage 3b chronic kidney disease (CMS-HCC)- 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
--- OUTSIDE RECORDS SUMMARY | 2025-04-18 05:15 | XMS_ITS | Clinical Summary ---
Author Organization [facility] Address [address] [place] [address] Care Team Providers Care [employer] Teacher Name Role Phone Stanley Emerson MD Unavailable [phone] Joi Zhang LPN Unavailable Stanley Emerson MD Primary Care Provider + [phone] Allergies No known active allergies Medications MedicationSigDispense [...] tablet Take 80 mg by mouth at gfrezki3801/16/2024ctive nitroglycerin (Nitrostat) 0.[address] [...] 2 tablets (20 mg) by mouth at hatyhph325Active potassium chloride CR (Klor-Con M20) 20 MEQ ER tablet Take 20 mEq by mouth Daily01/28/2025tive fexofenadine (Pham) 180 MG tablet Take 180 mg by mouth DailyActive Active Problems ProblemNoted DateDiagnosed DateAneurysm of left popliteal dyzjuf1903/15/2025 Demcdoqjhcy70/21/2025Delirium due to another medical udfctndib70/11/2025Lower extremity edema10/02/2024ommunity acquired pneumonia of lower lobe of lung 10/02/2024nemia due to stage 3b chronic kidney ffyuuta9205/13/2024HF (congestive heart failure)02/17/2024Ischemic oiafpdcjzcdnqe09/17/2024resence of stent in LAD coronary ydchxu4401/28/2024Former tnbcls8301/28/2024ilateral hydronephrosis 10/06/2023Folic acid verrcxyfcx42/13/2024Vitamin B 12 jeytazcfuj64/13/2024Stage 3b chronic kidney slzshkj9205/12/20234198Aktpdoapbhw41/27/5022Hsvemfpb41/27/2023OPD with ungbwawfa30/27/2023PH with urinary eymwhzcjyhd84/27/2023bdominal aortic aneurysm (AAA) greater than 5.5 cm in diameter in male11/11/2022therosclerosis of right carotid gkfkjk6211/11/2022Essential hypertension, uwjymh6911/11/2022Hearing difficulty of both ears11/11/20224390Rmkpcrqtzvnlmtvr40/19/2023Mixed dyslipidemia 11/11/20229937Jxellfgvjg79/19/2023aroxysmal SVT (supraventricular tachycardia) 11/11/2022Simple chronic /19/2023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 11/11/2022Urinary bladder bperqbjo76/19/2023Venous insufficiency of lower grchsatfs86/19/2023White matter aghqiec6411/11/2022Transient cerebral ischemic chcxkg3305/16/20221569Mdhzultxaefj91/16/2021Hearing loss11/22/2019Hypertensive /29/2016 Resolved Problems ProblemNoted DateDiagnosed DateResolved DateNew onset a-fib/02/2024 S/P PTCA (percutaneous transluminal coronary angioplasty)/ Metabolic oxvlguqi73History of bladder lksevi9512/19/2022 12/19/2022Obstructive ymrebsaa78Sundowning Acute kidney tlnehmz99Hypertensive nephropathy, stage 1-4 or unspecified chronic kidney vbnvter92History of cardiovascular zsurjszt32igarette Encounters DateTypeDepartmentCare FneiSqhccartvcl36/11/2025Patient Outreach [facility] [address] [place] [address] Joi Zhang LPN 03/22/2025linisync Result Encounter [facility] External Department Unsolicited Provider, Generic External Data 03/21/2025Patient Outreach [facility] [address] [place] [address] Joi Zhang LPN 03/18/2025linisync Result Encounter [facility] External Department Unsolicited Provider, Generic External Data 03/15/2025Orders Only [facility] [place] [address] [place] [address] Betty Cohen MA 02/28/2025linisync Result Encounter [facility] External Department Unsolicited Provider, Generic External Data 02/09/2025bstract [facility] [place] [address] [place] [address] Stanley Emerson MD 02/02/2025Telephone [facility] [place] [address] [place] [address] Stanley Emerson MD 02/02/2025linisync Result Encounter [facility] External Department Unsolicited Provider, Generic External Data 01/31/2025Patient Outreach [facility] [address] [place] [place] [address] Joi Zhang LPN from Last 3 Months Immunizations ImmunizationAdministration DatesNext DueInfluenza, High Dose Seasonal, Preservative Free05/20/2022,02/14/2021Influenza, High-dose Seasonal, Quadrivalent, Preservative Free03/06/2022Influenza, Seasonal, Quadrivalent, Dfonvfxcnt71/01/2023Influenza, injectable, quadrivalent, preservative free 02/22/2021,02/22/2020Influenza, recombinant, quadrivalent, injectable, preservative free02/22/2020Influenza, seasonal, mylkyjpjqq42/25/2024,03/16/2022 Moderna Bivalent Booster Aptcjplhuzk98/04/2022Pfizer Mane Cap SARS-CoV-2 Ygahvqdlvtb00/11/2022Pfizer Purple Cap SARS-CoV-2 Howmpfepwji92/25/2024 Pneumococcal Conjugate PCV 4Pneumococcal Polysaccharide PPSV23 04/23/2021SV, recombinant, protein subunit RSVpreF, adjuvant reconstitu, 120mcg/0.5mL, PF (Arexvy)08/23/20244640KVCT-VFW-5 (COVID-19) vaccine, mRNA, spike protein, LNP, PF, valente-sucrose, 30 mcg/0.3 mL02/16/20234720MERX-FuS-2, Unspecified 10/03/2021 Family History RelationNameStatusCommentsBrotherAlive1 brotherDaughterAlive1 daughterFather DeceasedMotherDeceasedSonAlive1 son Social History Tobacco UseTypesPacks/DayYears UsedDateSmoking Tobacco: FormerCigarettes0.561.3 Started: 12/31/1963Smokeless Tobacco: Never Tobacco Cessation:Counseling Given: Yes Alcohol UseStandard Drinks/WeekCommentsNever0 (1 standard drink = 0.6 oz pure alcohol)B1300 Health LiteracyAnswerDate RecordedHow often do you need to have someone help you when you read instructions, pamphlets, or other written material from your doctor or pharmacy?Lvwvxy0512/30/2024Humiliation, Afraid, Rape, and Kick questionnaireAnswerDate RecordedWithin the [...] a week 12/31/2023How often do you attend anabaptist or rastafarian services?Never12/31/2023o you belong to any clubs or organizations such as anabaptist groups, unions, fraternal or athletic groups, or school groups?No12/31/2023How often do you attend meetings of the clubs or organizations you belong to?Never12/31/2023re you , , , , never , or living with a partner?Ynhxbfp0912/31/2023UDIT-CAnswerDate RecordedQ1: How often do you have a [...] heating?Not hard at all12/31/2023HQ-2AnswerDate RecordedPatient Health Questionnaire-2 Mwkmc19207/14/2023[facility] - Occupational Stress QuestionnaireAnswerDate RecordedDo you feel stress - tense, restless, nervous, or anxious, or unable to sleep at night because yourmind is troubled all the time - these days?Only a gzpgqw9612/30/2024Exercise Vital Sign AnswerDate RecordedOn average, how many [...] homeless or living in a retirement (including now)?No12/31/2023Sex and Gender InformationValueDate RecordedSex Assigned at BirthNot on fileLegal FpsPgkq7008/07/2022 7:16 PM EDTGender IdentityNot on fileSexual OrientationNot on file Last Filed Vital Signs Vital SignReadingTime TakenCommentsBlood Jaryymba69/6805 3:01 PM EDT Hwdhx768105/13/2024 2:38 PM ESTTemperature--Respiratory Rate--Oxygen Nhpdktsozy62% 05/13/2024 2:38 PM ESTInhaled Oxygen Concentration--Zlqxlu86.1 kg (203 lb) 09/21/2024 2:08 PM GZOPlrdel853 cm (6' 2 )09/21/2024 2:08 PM EDTBody Mass Index 26.0609/21/2024 2:08 PM EDT Plan of Treatment DateTypeDepartmentCare Team (Latest Contact Info)Wwngprmilqg29/16/2025 2:00 PM ESTOffice Visit [facility] [address] Medicine [address] [facility] 100 [place] [address] Stanley Emerson MD [address] [facility] 100 [place] [address] Health MaintenanceDue DateLast DoneCommentsCOVID-19 Vaccine ( season) 51, 03/19/2024, 02/16/2023, Additional history existsMedicare Annual Wellness (AWV)5107/14/2023, 05/12/2023neumococcal Vaccine: 65+ QsihxVlsxmxuvw48/03/2024, 04/23/2021Influenza PovglclGgqukooio84/21/2025, 03/10/2025, 03/19/2024, Additional history exists Procedures Procedure NamePriorityDate/TimeAssociated DiagnosisCommentsXR CHEST 2V1 12:26 PM EDT ALL THYROID STIM HUHWEMQQruldvg59/24/2025 8:16 AM EDT ALL LIPID PROFILE (FASTING)Wdnqpbm2903/18/2025 8:16 AM EDT C[facility] YYEZqhnlop77/24/2025 8:16 AM EDT ALL BASIC METABOLIC GLPNUHkanppe54/24/2025 8:16 AM EDT TBH VITAMIN D 25 QLYcmpbxj50/06/2025 11:57 AM EDT C[facility] MOTXDHHJAjxilgk81/06/2025 11:57 AM EDT HMHP PTH, JBOYIBQILTIJXGTtovxto93/06/2025 11:57 AM EDT VITAMIN B00Dxdaivt71/06/2025 11:57 AM EDT FOLATE (FOLIC ACID), CEDUCIfkgrza62/06/2025 11:57 AM EDT ALL EGXSVTIXTHciuifd86/06/2025 11:57 AM EDT ALL URIC PTLPKkqpjwu35/06/2025 11:57 AM EDT ALL RENAL FUNCTION CNZMRXqjyugt30/06/2025 11:57 AM EDT METRO IRON AND GCTVAkyvsfp25/06/2025 11:57 AM EDT HMHP CBC WITH PLATELET NO XGEHXMEXIEDQAegcynp22/06/2025 11:57 AM EDT TBH URINE T PROTEIN CREAT RZWKKYnvvlqo85/06/2025 11:34 AM EDT ALL CTHAMAANEHNwopmjy13/10/2025 1:01 PM EDT from Last 3 Months Results * XR CHEST 2V (03/22/2025 12:26 PM EDT)Anatomical RegionLateralityModalityOther Specimen (Source)Anatomical Location / LateralityCollection Method / Volume Collection TimeReceived Time03/22/2025 12:26 PM EDT Narrative 03/22/2025 12:29 PM EDT [facility] ?[address] ? [place] [address] ?XRay Report ? Signed ? Patient: ALEX GRAJEDA ?MR#: [id number] ?? : 1945 ?Acct:[id number] ?? Age/Sex: 79 / M ?ADM Date: 03/22/25 ?? Loc: RAD ? Attending Dr: MAGDY AL ? Ordering Physician: MAGDY AL ?? Date of Service: 03/22/25 ?? Procedure(s): XR chest 2V ?? Accession Number(s): [id number] ? cc: STANLEY EMERSON ; MAGDY AL ? [facility] ? [address] ? [place] [address] ? Patient Name: ?? ALEX GRAJEDA ? MRN: [id number] ? date: 1945 ?Sex: M ?? Assigned Patient Location: RAD ?? Current Patient Location: RAD ?? Accession/Order Number: [id number] ?? Exam Date: 03/22/2025 ??11:45 ?Report Date: [...] M.D. ??03/22/2025 12:26 PM ? Dictation Location: [facility]-- ? Electronically authenticated by: [id number] ??Y ?? Date: 03/22/2025 ??12:26 ? Dictated By: ?Amy Person M.D. ? Signed By: ?03/22/25 1229 ? DD/ 1226 ? TD/TT: ? Mud Boss: Procedure Note Radiology, Radiologist, MD - 03/22/2025 [place] [address] XRay Report Signed Patient: ALEX GRAJEDA HMR#: [id number] : 1945cct:[id number] Age/Sex: 79 / MADM Date: 03/22/25 Loc: RAD Attending Dr: MAGDY AL Ordering Physician: MAGDY AL Date of Service: 03/22/25 Procedure(s): XR chest 2V Accession Number(s): [id number] cc: STANLEY EMERSON ; MAGDY AL The [place] [id number] Patient Name: ALEX GRAJEDA MRN: [id number] date: 1945 Sex: M Assigned Patient Location: [facility] Current Patient Location: [facility] Accession/Order Number: [id number] Exam Date: 03/22/2025 11:45 Report Date: 03/22/2025 [...] Person M.D. 03/22/2025 12:26 PM Dictation Location: [place] [address] Electronically authenticated by: [id number] Y Date: 2:26 Dictated By: Amy Person M.D. Signed By:03/22/25 1229 DD/ 1226 TD/TT: Mud Boss: Authorizing ProviderResult TypeResult StatusGeneric External Data Provider CLINISYNC IMAGINGFinal Result * [facility] AST (03/18/2025 8:16 AM EDT)ComponentValueRef RangeTest MethodAnalysis TimePerformed AtPathologist SignatureASPARTATE AMINO AXSVEPBGOUI1758 - 37 U/L TBHSpecimen (Source)Anatomical Location / LateralityCollection Method / Volume Collection TimeReceived Time03/18/2025 8:16 AM EDT1 8:17 AM EDT Narrative CLINISYNC - 03/18/2025 10:29 AM EDT Authorizing ProviderResult TypeResult StatusGeneric External Data Provider CLINISYNCFinal ResultPerforming OrganizationAddressCity/State/ZIP CodePhone Number [facility] * (ABNORMAL) ALL THYROID STIM HORMONE (03/18/2025 8:16 AM EDT)ComponentValueRef RangeTest MethodAnalysis TimePerformed AtPathologist SignatureTHYROID STIMULATING UZDMRUF54.644(H)0.358 - 3.740 uIU/mLTBHSpecimen (Source)Anatomical Location / LateralityCollection Method / VolumeCollection TimeReceived Time 03/18/2025 8:16 AM EDT1 8:17 AM EDT Narrative CLIN[facility]NC - 03/18/2025 10:29 AM EDT Authorizing ProviderResult TypeResult StatusGeneric External Data Provider CLINISYNCFinal ResultPerforming OrganizationAddressCity/State/ZIP CodePhone Number [facility] * (ABNORMAL) ALL LIPID PROFILE (FASTING) (03/18/2025 8:16 AM EDT)ComponentValue Ref RangeTest MethodAnalysis TimePerformed AtPathologist Signature MKCSSVAHGYHIK01<=150 mg/pHZLJPYAZTFQSQRU52<=200 mg/dLTBHHDL NGUEIIFCSLB48(L)40 - 60 mg/dLTBHComment: > or =60 mg/dl - LOW CARDIOVASCULAR RISK <40 mg/dl - HIGH CARDIOVASCULAR RISK LDL CHOLESTEROL ZTNEDEIEMU73.0mg/dLTBHComment: <100 mg/dl OPTIMAL 100-129 mg/dl NEAR OR ABOVE OPTIMAL 130-159 mg/dl BORDERLINE HIGH 160-189 mg/dl HIGH >190 mg/dl VERY HIGH VLDL SWIZBNVYHHV76.8mg/dLTBHCHOL HDL RATIO2.2TBHComment: 3.3 - 4.4 ?? LOW RISK 4.4 - 7.1 ?? AVERAGE RISK 7.1 - 11.0 ??MODERATE RISK >11.0 HIGH RISK Specimen (Source)Anatomical Location / LateralityCollection Method / Volume Collection TimeReceived Time03/18/2025 8:16 AM EDT1 8:17 AM EDT Narrative CLINISYNC - 03/18/2025 10:29 AM EDT Authorizing ProviderResult TypeResult StatusGeneric External Data Provider CLINISYNCFinal ResultPerforming OrganizationAddressCity/State/ZIP CodePhone Number [facility] * (ABNORMAL) ALL BASIC METABOLIC PANEL (03/18/2025 8:16 AM EDT)ComponentValueRef RangeTest MethodAnalysis TimePerformed AtPathologist OgfnmedcuQRGYMJ138(H)136 - 145 mmol/LTBHPOTASSIUM3.93.5 - 5.1 mmol/PFCKSZMVRYNC29604 - 107 mmol/LTBH CAR[place]ON VZFREGQ29.521.0 - 32.0 mmol/LTBHANION GAP16.2UZOHFLRWEX5702 - 106 mg/dL TBHBLOOD UREA TGFCWJYP46.0(H)7.0 - 18.0 mg/dLTBHCREATININE1.80(H)0.70 - 1.30 mg/dLTBHTBH EGFR-AF USVKKLMY43(L)>=60 mL/min/1.73m 2TBHTBH EGFR-NON AF NVBXDBFI97(L)>=60 mL/min/1.73m 2TBHBUN CREATININE RATIO14.6ZLWAOOWQOR3.88.5 - 10.1 mg/dLTBHSpecimen (Source)Anatomical Location / LateralityCollection Method / VolumeCollection TimeReceived Time03/18/2025 8:16 AM EDT1 8:17 AM EDT Narrative [facility]IN[facility]NC - 03/18/2025 10:29 AM EDT Authorizing ProviderResult TypeResult StatusGeneric External Data Provider CLINISYNCFinal ResultPerforming OrganizationAddressty/State/ZIP CodePhone Number [facility] * VITAMIN B12 (02/28/2025 11:57 AM EDT)ComponentValueRef RangeTest Method Analysis TimePerformed AtPathologist SignatureVITAMIN [id number] - 1245 pg/mL TBHComment: Performed at: ??[facility] ??[id number] Plastics Design Engineer: Morgan Carpenter PhD, Phone: ??[phone] Specimen (Source)Anatomical Location / LateralityCollection Method / Volume Collection TimeReceived Time02/28/2025 11:57 AM EDT1 11:59 AM EDT Narrative CLINISYCT - 03/01/2025 4:07 AM EDT Authorizing ProviderResult TypeResult StatusGeneric External Data ProviderLAB BLOOD ORDERABLESFinal ResultPerforming OrganizationAddMain Line Health/Main Line Hospitalsty/State/ZIP Code Phone Number [facility] * FOLATE (FOLIC ACID), SERUM (02/28/2025 11:57 AM EDT)ComponentValueRef Range Test MethodAnalysis TimePerformed AtPathologist SignatureFOLATE (FOLIC ACID) >20.0>3.0 ng/mLTBHComment: A serum folate concentration of less than 3.1 ng/mL is considered to represent clinical deficiency. Performed at: ??[facility] ??[id number] Plastics Design Engineer: Morgan Carpenter PhD, Phone: ??[phone] Specimen (Source)Anatomical Location / LateralityCollection Method / Volume Collection TimeReceived Time02/28/2025 11:57 AM EDT1 3:01 PM EDT Narrative CLINISYCT - 03/01/2025 4:07 AM EDT Authorizing ProviderResult TypeResult StatusGeneric External Data ProviderLAB BLOOD ORDERABLESFinal ResultPerforming OrganizationAddressCity/State/ZIP Code Phone Number [facility] * TBH VITAMIN D 25 [place] (02/28/2025 11:57 AM EDT)ComponentValueRef RangeTest MethodAnalysis TimePerformed AtPathologist SignatureVITAMIN D56.8ng/mLTBH Comment: <20 ng/mL Vit D deficient 20-<30 ng/mL Vit D insufficient 30-100 ng/mL ??Vit D sufficient >100 ng/mL Potential Toxicity Specimen (Source)Anatomical Location / LateralityCollection Method / Volume Collection TimeReceived Time02/28/2025 11:57 AM EDT1 11:59 AM EDT Narrative [facility] - 03/02/2025 5:25 PM EDT Authorizing ProviderResult TypeResult StatusGeneric External Data Provider CLINISYNCFinal ResultPerforming OrganizationAddMain Line Health/Main [facility] Hospitalsty/[facility] CodePhone Number [facility] * (ABNORMAL) METRO IRON AND TIBC (02/28/2025 11:57 AM EDT)ComponentValueRef RangeTest MethodAnalysis TimePerformed AtPathologist SignatureTBH IRON29.0(L) 65.0 - 175.0 ug/dLTBHTBH TOTAL IRON BINDING BXPRTVKM151.0250.0 - 450.0 ug/dL TBHTBH PERCENT IRON SATURATION9.6%TBHSpecimen (Source)Anatomical Location / LateralityCollection Method / VolumeCollection TimeReceived Time02/28/2025 11:57 AM EDT1 11:59 AM EDT Narrative [facility] - 02/28/2025 12:40 PM EDT Authorizing ProviderResult TypeResult StatusGeneric External Data Provider CLINISYNCFinal ResultPerforming OrganizationAddHoly [facility] CodePhone Number [facility] * (ABNORMAL) HMHP PTH, INTRAOPERATIVE (02/28/2025 11:57 AM EDT)ComponentValueRef RangeTest MethodAnalysis TimePerformed AtPathologist SignaturePTH, EWXOCZ64(A) 15 - 65 pg/mLTBHComment: Performed at: ?? - [facility] [address] ??[id number] Plastics Design Engineer: Morgan Carpenter PhD, Phone: ??[phone] Specimen (Source)Anatomical Location / LateralityCollection Method / Volume Collection TimeReceived Time02/28/2025 11:57 AM EDT1 11:59 AM EDT Narrative CLINISYNC - 03/01/2025 2:10 PM EDT Authorizing ProviderResult TypeResult StatusGeneric External Data Provider CLINISYNCFinal ResultPerforming OrganizationAddressCity/State/ZIP CodePhone Number [facility] TB * (ABNORMAL) [facility] CBC WITH PLATELET NO DIFFERENTIAL (02/28/2025 11:57 AM EDT) ComponentValueRef RangeTest MethodAnalysis TimePerformed AtPathologist SignatureTBH WBC7.14.0 - 11.0 10 3/uLTBHTBH RBC4.36(L)4.70 - 6.10 10 6/uLTBH TBH HGB11.6(L)14.0 - 18.0 g/dLTBHTBH HCT38.4(L)42.0 - 54.0 %TBHTBH MCV88.180.0 - 94.0 fLTBHTBH MCH26.625.9 - 34.0 pgTBHTBH MCHC30.229.9 - 35.2 g/dLTBHTBH RDW 15.7(H)11.0 - 15.0 %TBHTBH PKB648330 - 450 10 3/uLTBHTBH MPV10.09.5 - 13.5 fL TBHSpecimen (Source)Anatomical Location / LateralityCollection Method / Volume Collection TimeReceived Time02/28/2025 11:57 AM EDT1 11:59 AM EDT Narrative CLINISYNC - 02/28/2025 12:08 PM EDT Authorizing ProviderResult TypeResult StatusGeneric External Data Provider CLINISYNCFinal ResultPerforming OrganizationAddressCity/State/ZIP CodePhone Number [facility] * CCF FERRITIN (02/28/2025 11:57 AM EDT)ComponentValueRef RangeTest Method Analysis TimePerformed AtPathologist SmertnptlCFKQQGAT64.026.0 - 388.0 ng/mL TBHSpecimen (Source)Anatomical Location / LateralityCollection Method / Volume Collection TimeReceived Time02/28/2025 11:57 AM EDT1 11:59 AM EDT Narrative CLINISYCT - 03/02/2025 5:25 PM EDT Authorizing ProviderResult TypeResult StatusGeneric External Data Provider CLINISYNCFinal ResultPerforming OrganizationAddressCity/State/ZIP CodePhone Number [facility] * ALL URIC ACID (02/28/2025 11:57 AM EDT)ComponentValueRef RangeTest Method Analysis TimePerformed AtPathologist SignatureURIC ACID6.53.5 - 7.2 mg/dLTBH Specimen (Source)Anatomical Location / LateralityCollection Method / Volume Collection TimeReceived Time02/28/2025 11:57 AM EDT1 11:59 AM EDT Narrative CLINISYCT - 02/28/2025 12:40 PM EDT Authorizing ProviderResult TypeResult StatusGeneric External Data Provider CLINISYNCFinal ResultPerforming OrganizationAddressCity/State/ZIP CodePhone Number [facility] * (ABNORMAL) ALL RENAL FUNCTION PANEL (02/28/2025 11:57 AM EDT)ComponentValueRef RangeTest MethodAnalysis TimePerformed AtPathologist FtrgzmlyzIXPYOS403823 - 145 mmol/LTBHPOTASSIUM3.83.5 - 5.1 mmol/CAMFKZNDHAFR391(H)98 - 107 mmol/LTBH [place] WDXJAUG61.921.0 - 32.0 mmol/LTBHANION GAP12.9ZJAJSIMOTX92986 - 106 mg/dLTBHBLOOD UREA JNIDTDBB60.0(H)7.0 - 18.0 mg/dLTBHCREATININE2.27(H)0.70 - 1.30 mg/dLTBHTBH EGFR-AF BMYUCPBO71(L)>=60 mL/min/1.73m 2TBHTBH EGFR-NON AF ZSVPBEXR75(L)>=60 mL/min/1.73m 2TBHBUN CREATININE RATIO13.6EEHVHUIDZL9.68.5 - 10.1 mg/dLTBHPHOSPHORUS3.12.6 - 4.7 mg/dLTBHALBUMIN LEVEL3.83.4 - 5.0 g/dLTBH Specimen (Source)Anatomical Location / LateralityCollection Method / Volume Collection TimeReceived Time02/28/2025 11:57 AM EDT1 11:59 AM EDT Narrative [facility] - 02/28/2025 12:40 PM EDT Authorizing ProviderResult TypeResult StatusGeneric External Data Provider CLINISYNCFinal ResultPerforming OrganizationAddressCity/State/ZIP CodePhone Number [facility] * ALL MAGNESIUM (02/28/2025 11:57 AM EDT)ComponentValueRef RangeTest Method Analysis TimePerformed AtPathologist SignatureMAGNESIUM2.31.8 - 2.4 mg/dLTBH Specimen (Source)Anatomical Location / LateralityCollection Method / Volume Collection TimeReceived Time02/28/2025 11:57 AM EDT1 11:59 AM EDT Narrative [facility] - 02/28/2025 12:40 PM EDT Authorizing ProviderResult TypeResult StatusGeneric External Data Provider CLINISYNCFinal ResultPerforming OrganizationAddressCity/State/ZIP CodePhone Number [facility] * (ABNORMAL) TBH URINE T PROTEIN CREAT RATIO (02/28/2025 11:34 AM EDT)Component ValueRef RangeTest MethodAnalysis TimePerformed AtPathologist SignatureTOTAL PROTEIN URINE RANDOM7.7<=11.9 mg/dLTBHCREATININE URINE JCCKKS19.47(L)20.00 - 300.00 mg/dLTBHPROTEIN CREATININE RATIO URINE0.47TBHSpecimen (Source) Anatomical Location / LateralityCollection Method / VolumeCollection Time Received Time02/28/2025 11:34 AM EDT1 11:59 AM EDT Narrative [facility] - 02/28/2025 12:53 PM EDT Authorizing ProviderResult TypeResult StatusGeneric External Data Provider CLINISYNCFinal ResultPerforming OrganizationAddressCity/State/ZIP CodePhone Number [facility] * (ABNORMAL) ALL HEMOGLOBIN (02/02/2025 1:01 PM EDT)ComponentValueRef RangeTest MethodAnalysis TimePerformed AtPathologist SignatureTBH HGB10.9(L)14.0 - 18.0 g/dLTBHSpecimen (Source)Anatomical Location / LateralityCollection Method / VolumeCollection TimeReceived Time02/02/2025 1:01 PM EDT02/02/2025 1:04 PM EDT Narrative [facility] - 02/02/2025 1:15 PM EDT Authorizing ProviderResult TypeResult StatusGeneric External Data Provider CLINISYNCFinal ResultPerforming OrganizationAddressCity/State/ZIP CodePhone Number [facility] from [place] [address] [place] [address] Care Teams Team MemberRelationshipSpecialtyStart DateEnd Date Stanley Emerson MD [address] [place] [address] (Fax) PCP - ACO Reach10/17/22 Stanley Emerson MD [address] [place] [address] (Fax) PCP - GeneralFamily Hxghnipk22/12/25 Joi Zhang LPN [address] [place] [address] 08/26/24
--- OUTSIDE RECORDS SUMMARY | 2025-04-18 05:15 | XMS_ITS | Clinical Summary ---
Author Organization [facility] Address [address] [place], [place] [id number] Care Team Providers Care Core Sticker Name Role Phone Stanley Toledo MD Primary Care Provider Social History Tobacco UseTypesPacks/DayYears UsedDateSmoking Tobacco: Never AssessedSex and Gender InformationValueDate RecordedSex Assigned at BirthNot on fileLegal Sex Male01/21/2024 8:32 AM EDTGender IdentityNot on fileSexual OrientationNot on file Plan of Treatment Health MaintenanceDue DateLast DoneCommentsAnxiety Azsmyzfuv53/08/1962Depression Rusjjgvwf15/08/1962DTaP,Tdap,Td Vaccine (1 - Tdap)11/30/1962Diabetes Screening 11/30/1988Pneumococcal Vaccine: 50+ (1 of 1 - PCV)11/30/1993Shingrix Vaccine (1 of 2)11/30/1993RSV Vaccine (1 - 1-dose 75+ series)11/30/2018Advance Directive Shqvovkxcq10/01/2025ovid-19 Vaccine (1 - 2024-26 season)2025Influenza Vaccine (#1)2025 [place] [address] Care Teams Team MemberRelationshipSpecialtyStart DateEnd Date Stanley Toledo MD [address] [place] [id number] [facility] - [facility]/21/24
--- OUTSIDE RECORDS SUMMARY | 2025-04-18 05:15 | XMS_ITS | Clinical Summary ---
Author Organization [facility] Address [address], [address] [place] [address] Care Team Providers Care Polygraph Operator Name Role Phone Stanley Toledo MD Primary Care Provider [phone] Allergies No known active allergies Medications MedicationSigDispense [...] under the tongue every 5 minutes as aspdjg0701/16/2024ctive warfarin (COUMADIN) 2 MG tablet Take 0.5 [...] Active Problems ProblemNoted DateDiagnosed DateAcute cystitis without huhwgphzw57/12/2025DNR (do not resuscitate) gkjiraseos67/12/2025Palliative care ubksbmrfd37/12/2025Goals of care, counseling/wlujdpmien55/12/2025hronic heart kzphsch4210/04/2024ute metabolic mdjidcwoiptjic41/12/2025Delirium due to another medical condition 10/03/2024ommunity acquired pneumonia of lower lobe of lung10/02/2024Lower extremity edema10/02/2024 Social History Tobacco UseTypesPacks/DayYears UsedDateSmoking Tobacco: FormerCigarettes Tobacco Cessation:Counseling Given: Not Answered [facility] UtilitiesAnswerDate RecordedIn the past 12 months has the [employer], gas, oil, or water [employer] threatened to shut off services in your home?Patient unable to qwbsvw6410/02/2024Hunger Vital SignAnswerDate RecordedWithin the past 12 months, you worried that your food would run out before you got the money to buy more.Patient unable to fhcupf8510/02/2024Within the past 12 months, the food you bought just didn't last and you didn't have money to get more.Patient unable to ucbuvv1710/02/2024PRAPARE - TransportationAnswerDate RecordedIn the past 12 months, has lack of transportation kept you from medical appointments or from getting medications?Patient unable to qavale3510/02/2024In the past 12 months, has lack of transportation kept you from meetings, work, or from getting things needed for daily living?Patient unable to vyyizg6810/02/2024Housing Stability Vital SignAnswerDate RecordedIn the last 12 months, was there a time when you were not able to pay the mortgage or rent on time?Patient unable to answer 10/02/2024In the past 12 months, how many times have you moved where you were living?Not on file10/02/2024t any time in the past 12 months, were you homeless or living in a snf (including now)?Patient unable to oexcam5810/02/2024Food InsecurityAnswerDate RecordedWithin the past 12 months, you worried that your food would run out before you got the money to buymore.Within the past 12 months, the food you bought just didn't last and you didn't have money to get more.Interpersonal Safety Domain Source: IP Abuse Screening AnswerDate RecordedPhysical wwcinApxugu77/10/2025Verbal awchoGhpmpm08/10/2025 Emotional ufsfpFozejf82/10/2025Financial artszCgoucl25/10/2025Sexual abuseDenies 10/02/2024Sex and Gender InformationValueDate RecordedSex Assigned at BirthNot on fileLegal FyyXjow8710/01/2024 10:28 PM EDTGender IdentityNot on fileSexual OrientationNot on file Last Filed Vital Signs Vital SignReadingTime TakenCommentsBlood Agpvjvlg800/67010/05/2024 8:35 AM EDT Sxweq482210/05/2024 8:35 AM YWJCqjrvrjvyio43.7 ??C (98.1 ??F)10/05/2024 7:05 AM EDTRespiratory Sunf697910/05/2024 7:05 AM EDTOxygen Zyxmjmefgx59%10/05/2024 7:05 AM EDTInhaled Oxygen Concentration--Jewubb59.4 kg (175 lb)10/02/2024 4:30 PM EDT Clctbe750 cm (6' 2 )10/02/2024 4:30 PM EDTBody Mass Index22.47010/02/2024 4:30 PM EDT Plan of Treatment Health MaintenanceDue DateLast QtjxUornxoitRkmyuk40/08/1956Depression Screen 1955DTaP/Tdap/Td vaccine (1 - Tdap)11/30/1962Shingles vaccine (1 of 2) 11/30/1993Annual Wellness Visit (Medicare)10/02/2024Flu vaccine (#1)12/24/2024 03/19/2024, 03/26/2023, 05/20/2022, Additional history existsCOVID-19 Vaccine ( season)51, 02/16/2023, 03/29/2022, Additional history existsPneumococcal 50+ years NugtvfiOqpesdhal40/03/2024, 04/23/2021 Respiratory Syncytial Virus (RSV) or age 60 yrs+Cdpeymbvd26/31/2025 Hepatitis A vaccineAged OutNo longer eligible based [...] Team MemberRelationshipSpecialtyStart DateEnd Date Stanley Toledo MD [facility]10/02/24
--- OUTSIDE RECORDS SUMMARY | 2025-04-18 05:17 | XMS_ITS | CCD ---
Author Organization [facility] Care Team Providers Care Pyrometer Operator Name Role Phone Stanley Emerson Unavailable Unavailable Unavailable STANLEY EMERSON Primary Care Physician Unavail able MD Stanley Emerson Primary Care Provider MD Taz Barnes Admit Provider MD Margarito Valentine Other Provider [phone] MD Janice Gonzalez Other Provider DO Bernabe Cr Attending Provider MD Margarito Valentine Attending Provider MD Margarito Valentine Admit Provider Celia Griffin Unavailable Margarito Valentine Unavailable MOMO Omalley Attending Provider MD Stanley Emerson Primary Care Provider MD Tza Barnes Admit Provider MD Margarito Valentine Other [...] MONTALVO Consulting Unavailable JAZZY CATES Consulting Unavailable SRUY II, ARCADIO Consulting Unavailable HEMEYER ., DR [...] Araceliva MD Stanley Gomez Primary Care Provider [phone] MD Celia Griffin Attending Provider [phone] MD Teo Al Referring Provider MD Stanley Emerson Primary Care Provider [phone] MD Margarito Valentine Attending Provider MD Stanley Emerson Primary Care Provider [phone] MD Teo Al Attending Provider MD Willy Lambert Attending Provider DO Nas Pruett Admit Provider DO Nas Pruett Attending Provider MD Myesha Feliz Other Provider MD Rogelio Rai Other Provider WATSON Truong Other Provider [phone] DO Mckay Yeboah Jr Other Provider MD Ryley Hoyt Other Provider [phone] ROCIO Randle Other Provider Unavailable ROCIO Alvarez Other Provider Unavailable ROCIO Delgado Other Provider Unavailable ROCIO Rogel Other Provider Unavailable ROCIO Li Other Provider Unavailable MD Radha Berrios Other Provider DO Khanh Deluca Other Provider MD Ronald Martinez Other Provider [phone] DO Bernabe Cr Other Provider MD [...] Other Provider DO Jakob Lomax Other Provider [phone] MD Nick Ken Other Provider WATSON Beard Other Provider WATSON Man Venus C Other Provider MD Joaquim Mayo Other Provider MD Shane Durham Other Provider DO Tico Whitehead Other Provider DO Alonso Maher Other Provider MD Humberto Bonds P Other Provider MD Chi Smith Other Provider WATSON Najera Other Provider [phone] MD Dana Haddad Other Provider MD Emmanuel Silverman Other Provider ROCIO Moore Other Provider Unavailable Stanley Emerson MD Primary Care Provider [phone] Stanley Emerson MD Unavailable Stanley Emerson MD Primary Care Provider Black [employer], Dora Unavailable WATSON Bailey Attending Provider WATSON Truong Other Provider [phone] Stanley Emerson MD Unavailable Stanley Emerson MD Primary Care Provider Stanley Emerson MD Unavailable Stanley Emerson MD Primary Care Provider [phone] Stanley Emreson MD Primary Care Provider Stanley Emerson MD Primary Care Provider Teo Al MD Attending Provider Blanca Boles Attending Unavailable Katia SAMUELS Attending Unavailable MOMO OMALLEY Attending Unavailab MOMO Kruger Attending Unavailab MOMO Kruger Attending Unavailab Katia Fong Admitting Unavailable Katia SAMUELS Attending Unavailable Fabi Gomez Attending Unavailable Zhang [employer]IVER, Joi Unavailable Unavailable Black [employer]IVER, Dora Unavailable Talya Bo MD Attending Provider [...] Care Provider Margarito Valentine MD Attending Provider [phone] Joi Zhang LPN Unavailable Stanley Emerson Primary [...] Consulting Unavailable Roseann Velasco Consulting Unavailabl e Jgajit Swenson Consulting Unavailable Pawel Sanford Consulting Unavailable [...] Unavailable Stanley Emerson MD Primary Care Provider Celia Griffin MD Attending Provider Black [employer]IVER, Dora Unavailable Rupesh [employer]IVER, Christina Unavailable Unavailable Ruby Montana MD Unavailable [...] [No Known Medication Allergies]Propensity to adverse reactions (disorder)[facility] Medications Current Medications MedicationDrug Class(es)DatesSig (Normalized)Sig (Original)Acetaminophen (4 sources)Start: 50-55-3150cejwdxnctyggg (TYLENOL) tablet 650 mgtake 2 tablets by mouth every eight hoursAcetaminophen ER 650 MG 2 tablets as needed Orally every 8 hrs Activeacetaminophen 325 mg / HYDROcodone bitartrate 7.5 mg oral tablet (2 sources)Opioid AgonistStart: 54-25-1302aant 1 tablet by mouth once, then take 1 tablet by mouth every hourNorco 325 mg-7.5 mg oral tablet 1 tab(s), Oral, Once, 1 tab(s), Refill(s) 0, Take 1 hour prior to procedure, [facility]/pharmacy #[id number], 187, cm, 03/11/23 13:44:00 EDT, Height/Length Dosing, 93, kg, 03/11/2313:44:00 EDT, Weight Dosing Start Date: 05/06/23 Status: [id number] 200 actuat albuterol 0.09 mg/actuat metered dose inhaler (20 sources)beta2-Adrenergic AgonistStart: 05-13-3513srht 2 puff(s) by inhalation every six hours as needed for wheezingalbuterol sulfate HFA (PROVENTIL;VENTOLIN;PROAIR) 108 (90 Base) MCG/ACT inhaler Inhale 2 puffs intothe lungs every 6 hours as needed for Wheezing or Shortness of Breath 18 g 10/05/2024 ActiveStart: .5 mg, Nebulization, EVERY 6 HOURS PRN, Starting on 10/02/24 at 1102, Until Discontinued, Wheezing, Initiate RT Bronchodilator Protocol: Yes - Inpatient ProtocolStart: 92-83-6198zfqi 1 puff(s) by inhalation every six hours as needed for wheezingAlbuterol Sulfate 90 mcg/actuation HFA aerosol inhaler Active 2 PUFF INHALATION Every 6 hours as nee ded for shortness of breath or wheezing October 22, 2023 12:00am Complies with drug therapyStart: 09-30-2023 End: 74-98-5672ctru 2 puff(s) by inhalation every six hours for wheezing albuterol HFA 90 mcg/act inhaler Indications: Simple chronic bronchitis (HCC) Inhale 2 puffs every 6 (six) hours if needed for wheezing 54 g 1 09/30/2023 ActiveStart: 59-80-7828qmxw 2 puff(s) by inhalation every four hoursalbuterol 90 mcg/actuation inhaler Inhale 2 puffs every 4 hours if needed. 12/17/2022 Active Start: 68-64-3887Lglhidunv Sulfate HFA 108 (90 Base) MCG/ACT Inhalation Aerosol Solution Quantity: 54 Refills: 0 Ordered: 03-Jun-2022 DO Start : 03-Jun-2022 ActiveStart: 05-16-2022 End: 51-77-9971pumc 1 puff(s) by inhalation three times daily [...] HFA) 90 mcg/inh inhalation aerosol (20 sources)Start: 97-60-5597Kyvwswyzc (Eqv-ProAir HFA) 90 mcg/inh inhalation aerosol Refill(s) 0 Start Date: 06/10/22 Status: Ordered Medication Dispense Status: Completed Total Allowed Fills: 1 Fills Dispensed: 0Start: 06-10-2022 Albuterol (Eqv-ProAir HFA) 90 mcg/inh inhalation aerosol Refill(s) 0 Start Date: 06/10/22 Status: Ordered Repeat number: 1Start: 99-89-5372Nglefatim (Eqv-ProAir HFA) 90 mcg/inh inhalation aerosol Refill(s) 0 Start Date: 06/10/22 Status: Ord eredamiodarone hydrochloride 200 mg oral tablet (20 sources)AntiarrhythmicStart: 02-10-2024 End: 99-53-7854iavnlpyzlh 200 mg Tab 200 mg = 1 tab(s), Refills(s) 0 Start Date: 04/06/24 Status: Ordered Medication Dispense Status: Completed Total Allowed Fills: 1 Fills Dispensed: 0Start: 01-23-2024 End: 87-29-6047zkpn 1 tablet by mouth twice dailyAmiodarone 200 mg Tablet Discontinued 200 MG PO Twice daily 60 January 23, 2024 12:00am 2023 12:52pmamLODIPine 5 mg oral tablet (20 sources)Dihydropyridine Calcium Channel BlockerStart: 61-92-3710rgzz 5 mg by mouth twice dailyamlodipine 5 mg, Oral, BID, Refills(s) 0 Start Date: 04/06/24 Status: Ordered Repeat number: 1Start: 12-31-2023 End: 94-78-5133uyce 1 tablet by mouth once dailyAmlodipine 5 mg tablet Discontinued 5 MG PO Daily December 31, 2023 12:00am January 23, 2024 2:59pm Start: 06-10-2023 End: 15-96-5744tvou 1 tablet by mouth twice dailyAmlodipine 5 mg tablet Discontinued 5 MG PO Twice daily October 22, 2023 12:00am November 14, 2023 9:36am Start: 35-86-4490nqne 1 tablet by mouth every twelve hoursNorvasc 5 MG 1 tablet Orally bid for 90 days Mar, ActiveStart: 82-39-8243emso 1 tablet by mouth every twenty-four hoursNorvasc 5 MG 1 tablet Orally Once a day for 90 days Mar, Activeapixaban 2.5 mg oral tablet (20 sources)Factor Xa InhibitorStart: 01-23-2024 End: 13-91-4289Qoxpjpj 2.5 mg oral tablet Refills(s) 0 Start Date: 04/06/24 Status: Ordered Repeat number: 1atorvastatin 80 mg oral tablet (20 sources)HMG-CoA Reductase InhibitorStart: 01-16-2024 End: 92-36-9908giry 1 tablet by mouth once dailyatorvastatin 80 mg Tab 80 mg = 1 tab(s), Oral, Daily, # 30 tab(s), Refills(s) 0 Start Date: 03/02/24Status: Ordered Medication Dispense Status: Completed Quantity: 30.0 Unit: tab(s) Total Allowed Fills: 1 Fills Dispensed: 0cephalexin 250 mg oral capsule (20 sources)Cephalosporin AntibacterialStart: 68-06-1178uhvvaslmnp (Keflex) 250 mg capsule TAKE 1 CAPSULE BY MOUTH FRIDAY, FRIDAY AND Friday03/01/2025 A ctiveStart: 57-22-2771dawa 1 capsule by mouth once dailyKeflex 500 mg Cap 500 mg = 1 cap(s), Oral, Daily, Take 1 capsule the day before the procedure and 1 capsule after the procedure, # 2 cap(s), Refills(s) 0, Pharmacy: [facility]/pharmacy #[id number], 187, cm, 07/15/24 10:46:00 EST, Height/Length Dosing, 93, kg, 07/15/24 10:46:00 EST, Weight Dosing Start Date: 09/24/24 Status: Ordered Quantity: 2.0 Unit: cap(s) Repeat number: 1Start: 09-09-2024 End: 16-24-4836Btbpja 250 mg Cap 250 mg = 1 cap(s), Oral, MonWedFri, X 30 day(s), # 13 cap(s), Refills(s) 11, Pharmacy: [facility]/pharmacy #[id number], 187, cm, 07/15/24 10:46:00 EST, Height/Length Dosing, 93, kg, 07/15/24 10:46:00 EST, Weight Dosing Start Date: 09/09/24 Stop Date: 09/04/25 Status: Ordered Medication Dispense Status: Completed Quantity: 13.0 Unit: cap(s) Total Allowed Fills: 12 Fills Dispensed: 0Start: 22-32-9448xgvr 1 capsule by mouth once dailyKeflex 250 mg Cap 250 mg = 1 cap(s), Oral, Daily, # 30 cap(s), Refills(s) 1, Pharmacy: [facility]/pharmacy#[id number], 187, cm, 07/15/24 10:46:00 EST, Height/Length Dosing, 93, kg, 07/15/24 10:46:00 EST, Weight Dosing Start Date: 07/15/24 Status: OrderedStart: 06-22-2024 End: 78-58-5385knrc 1 capsule by mouth in the morningcephalexin (Keflex) 250 mg capsule Take 1 capsule (250 mg) by mouth early in the morning.. 07/18/2024 10/08/2024 Discontinued (Med List Cleanup)Start: 04-28-2024 End: 75-59-9252qiwr 1 capsule by mouth in the morning, then take 1 capsule by mouth in the evening, then take 1 capsule by mouth at bedtimecephalexin (Keflex) 500 MG capsule Take 500 mg by mouth in the morning and 500 mg in the evening and 500 mg before bedtime. 04/28/2024 05/13/2024 Discontinued (Therapy completed) Start: 02-95-4722nofq 1 mg by mouth every twelve hoursKeflex 500 mg Cap mg cap(s), Oral, q12hr, Refills(s) 0 Start Date: 10/03/23 Status: Ordered End: 45-30-0747tkcy 1 capsule by mouth three times dailycephalexin (Keflex) 500 mg capsule Take 1 capsule (500 mg) by mouth 3 times a day. 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 Patient will take 4 tablets ( 300mg) one time only, then will take one tablet daily 90 tablet 3 03/05/2024 Activedonepezil hydrochloride 10 mg oral tablet (20 sources)Start: 11-19-2024 End: 44-16-0207hgwj 2 tablets by mouth at bedtimedonepezil (Aricept) 10 MG tablet Indications: 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 disturbance, psychotic disturbance, mood disturbance, or anxiety (HCC) Take 2 tablets (20 mg) by mouth at bedtime 11/19/2024 05/18/2025 ActiveStart: 10-22-2024 End: 06-69-0550zizf 1 tablet by mouth once daily at bedtimedonepezil 10 mg Tab 10 mg = 1 tab(s), Oral, Once a day (at bedtime) Start Date: 11/16/24 Status: Orde red Medication Dispense Status: Completed Total Allowed Fills: 1 Fills Dispensed: 0doxycycline hyclate 100 mg oral capsule (11 sources)Tetracycline-class DrugStart: 03-31-2025 End: 20-88-5470aqhmauyzghv hyclate 100 mg Cap 100 mg = 1 cap(s), Oral, BID, may substitute hyclate for monohydratebased on availability, X 7 day(s), # 14 cap(s), Refills(s) 0, Pharmacy: [facility]/pharmacy #[id number], 187, cm, 03/31/25 15:35:00 EST, Height/Length Dosing, 93, kg, 03/31/25 15:35:00 EST, Weight Dosing Start Date: 03/31/25 Stop Date: 04/07/25 Status: Ordered Medication Dispense Status: Completed Quantity: 14.0Unit: cap(s) Total Allowed Fills: 1 Fills Dispensed: 0 Start: 03-08-2024 End: 64-73-9045szqrnvjlofr (Vibramycin) 100 MG capsule Indications: Pneumonia Take 100 mg by mouth in the morning and 100 mg before bedtime. Take with at least 8 ounces (large glass) of water, do not lie down for 30 minutes after. 03/08/2024 03/19/2024 ExpiredStart: 03-08-2024 End: 29-85-8734mgcc 1 capsule by mouth twice dailyDoxycycline Hyclate 100 mg capsule Discontinued 100 MG PO Twice daily 20 March 08, 2024 12:00am August 11, 2024 10:30am1 ml enoxaparin sodium 100 mg/ml prefilled syringe (2 sources)Low Molecular Weight HeparinStart: 10-08-2024 End: 78-25-8524gicnedqbsy (Lovenox) 100 mg/mL syringe Indications: Cardiomyopathy, ischemic [...] (Discontinued by another clinician)Ferric Carboxymaltose (3 sources)Start: 61-08-8367tjiuie 100 mg intravenously every weekStart: 11-02-2024 End: 15-87-4188ndraqj 100 mg intravenously every weekFerric Carboxymaltose (Injectafer) 100 mg iron/2 mL solution Discontinued 750 MG IV Q7D November 02 12:00am December 06, 2024 4:11pmStart: 54-39-1240lazyzj 100 mg intravenously every weekFerric Carboxymaltose (Injectafer) 100 mg iron/2 mL solution Active 750 MG IV Q7D November 02, 2024 12:00amferrous sulfate 325 mg oral tablet (20 sources)Start: 16-45-2208djyj 325 mg by mouth once daily at vvsthvbar488 mg, Oral, DAILY WITH BREAKFAST, First dose (after last modification) on Fri10/06/24 at 0800, Until DiscontinuedStart: 08-11-2024 End: 74-31-2507mkeo 1 tablet by mouth twice dailyFerrous Sulfate 325 mg (65 mg iron) tablet Active 325 MG PO Twice daily 180 November 29, 2024 4:34pm Complies with drug therapyStart: 00-10-1736mxyo 1 tablet by mouth once dailyferrous sulfate (as elemental iron) 45 mg oral tablet, extended release 45 mg = 1 tab(s), Oral, Daily, # 30 tab(s), Refills(s) 0 Start Date: 03/02/24 Status: Ordered Medication Dispense Status: Completed Quantity: 30.0 Unit: tab(s) Total Allowed Fills: 1 Fills Dispensed: 0Start: 10-22-2023 End: 85-63-5239ufbu 1 tablet by mouth once dailyFerrous Sulfate [...] oral tablet (20 sources)Loop DiureticStart: 05-03-2024 End: 21-77-9030ioxg 1 tablet by mouth once dailyFurosemide 40 mg tablet Active 0 .ROUTE .COMPLEX 90 January 02, 2025 2:55pm TAKE 1 TABLET BY MOUTHEVERY DAY Complies with drug therapyStart: 02-04-2024 End: 13-53-9536vcyn 1 tablet by mouth once dailyfurosemide 40 mg Tab TAKE 1 TABLET BY MOUTH EVERY DAY Start Date: 03/02/24 Status: Ordered Medication Dispense Status: Completed Total Allowed Fills: 1 Fills Dispensed: 0inulin 2000 mg chewable tablet (13 sources)Start: 32-83-1659snqx 1 tablet by mouth once dailyInulin (Fiber Gummies) 2 gram tablet,chewable Active 2 GM PO Daily December 31, 2023 12:00am Complies with drug vecpjlz18 ml magnesium sulfate 40 mg/ml injection (1 [...] (20 sources)Thyroid Hormone Synthesis InhibitorStart: 07-15-2024 End: 16-88-0771mtnf 1 tablet by mouth once dailymethIMAzole (Tapazole) 5 mg tablet Indications: Hyperthyroidism Take 1 tablet (5 mg) by mouth once daily. 90 tablet 1 03/29/2025 03/29/2026 ActiveStart: 07-15-2024 End: 36-25-7843zejq 1 tablet by mouth twice dailymethIMAzole (Tapazole) 5 mg tablet Indications: High risk medication use , Hyperthyroidism Take 1 tablet (5 mg) by mouth 2 times a day. 180 tablet 3 07/29/2024 03/29/2025 Discontinued (Dose adjustment)Start: 05-24-2024 End: 10-52-2578qomw 2.5 mg by mouth in the morningmethIMAzole (Tapazole) 5 MG tablet Take 2.5 mg by mouth in the morning and 2.5 mg in the evening. 05/24/2024 08/03/2024 Discontinued (Dose adjustment)Start: 05-24-2024 End: 18-06-2242mlxw 0.5 tablet by mouth twice dailymethIMAzole (Tapazole) 5 mg tablet Indications: High risk medication use , Hyperthyroidism Take 0.5tablets (2.5 mg) by mouth 2 times a day. 90 tablet 3 05/24/2024 07/29/2024 Discontinued (Reorder)metoprolol tartrate 25 mg oral tablet (20 sources)beta-Adrenergic BlockerStart: 07-02-0436msdv 25 mg by mouth once dailymetoprolol 25 mg, Oral, Daily, Refills(s) 0 Start Date: 07/15/24 Status: Ordered Medication DispenseStatus: Completed Total Allowed Fills: 1 Fills Dispensed: 0Start: 05-21-2024 End: 93-94-6440gjgf 1 tablet by mouth once dailymetoprolol succinate XL (Toprol- XL) 25 mg 24 hr tablet Indications: Cardiomyopathy, ischemic Take 1tablet (25 mg) by mouth once daily. Do not crush or chew. 90 tablet 3 05/21/2024 05/21/2025 ActiveStart: 05-21-2024 End: 50-08-6926kqtd 1 tablet by mouth every twenty-four hours in the morning metoprolol succinate XL (Toprol-XL) 25 MG 24 hr tablet Take 25 mg by mouth in the morning. 05/21/2024 05/21/2025 ActiveStart: 38-10-2680Vmymompmeo tartrate 50 mg Tab Refills(s) 0 Start Date: 06/10/22 Status: OrderedStart: 05-16-2022 End: 13-98-5031lfaj 1 tablet by mouth twice dailyMetoprolol Tartrate [...] mouth once daily. ActiveMultivitamin preparation (20 sources)Start: 45-22-7119cozx 1 tablet by mouth once dailyMultivitamin Active 1 TAB PO Daily October 22, 2023 12:00amStart: 78-53-8737puapcrwuhuyh Daily, Refill(s) 0 Start Date: 07/31/22 Status: Ordered Medication Dispense Status: Compl eted Total Allowed Fills: 1 Fills Dispensed: 0Start: 43-62-5872xdewhygolrsr Daily, Refill(s) 0 Start Date: 07/31/22 Status: Ordered Repeat number: 1Start: 72-49-1546sgfncrwetpvv Daily, Refill(s) 0 Start Date: 07/31/22 Status: Ordered Multivitamin ActiveMultivitamin tablet (7 sources)Start: 07-90-3320acno 1 tablet by mouth once dailyMultivitamin tablet Active 1 TAB PO Daily October 22, 2023 12:00am Complies with drug therapyStart: 57-05-2828bczv 1 tablet by mouth once dailyMultivitamin tablet Active 1 TAB PO Daily October 22, 2023 12:00amnitroglycerin 0.4 mg sublingual tablet (20 sources)Nitrate VasodilatorStart: 70-81-1105uobzrzewpdjil (Nitrostat) 0.4 mg SL tablet Indications: 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 25 tablet 11 03/29/2025 ActiveStart: 01-16-2024 End: 75-10-0797rfzzniwslltwl 0.4 mg sublingual Tab 0.4 mg = 1 tab(s), SubLingual, q5min, PRN for chest pain, # 100tab(s), Refills(s) 0 Start Date: 03/02/24 Status: Ordered Medication Dispense Status: Completed Quantity: 100.0 Unit: tab(s) Total Allowed Fills: 1 Fills Dispensed: 0ondansetron (ZOFRAN-ODT) disintegrating tablet 4 mg (1 source)Start: 13-00-1431yobqpklvxlk (ZOFRAN-ODT) disintegrating tablet 4 mg24 hr oxybutynin chloride 10 mg extended release oral tablet (1 source)Cholinergic Muscarinic AntagonistStart: 13-45-4513zlyg 1 tablet by mouth once dailyoxybutynin 10 mg ER Tab 10 mg = 1 tab(s), Oral, Daily, # 14 tab(s), Refills(s) 0, Pharmacy: [facility]/pharmacy #[id number], 187, cm, 06/10/23 13:43:00 EST, Height/Length Dosing, 93, kg, 03/11/23 13:44:00 EDT, Weight Dosing Start Date: 06/11/23 Status: Orderedmicroencapsulated potassium chloride 20 meq extended release oral tablet (20 sources)Start: 51-53-6468ausi 1 tablet by mouth once dailyKlor-Con M20 20 mEq ER tablet Indications: Hypokalemia TAKE 1 TABLET BY MOUTH ONCE DAILY. DO NOT CRUSH OR CHEW. 90 tablet 3 01/28/2025 ActiveStart: 16-54-0225fppluosmu chloride (KLOR-CON M) extended release tablet 40 mEqStart: 91-13-1526Yijd-Con 20 mEq, Refills(s) 0 Start Date: 04/06/24 Status: Ordered Medication Dispense Status: Completed Total Allowed Fills: 1 Fills Dispensed: 0Start: 94-82-4550Zuue-Con 20 mEq, Refills(s) 0 Start Date: 04/06/24 Status: Ordered Repeat number: 1Start: 04-27-1428Sutx-Con 20 mEq, Refills(s) 0 Start Date: 04/06/24 Status: Ordered Start: 10-14-2024 End: 06-08-1173Lbqykhvgc Chloride (Klor-Con M20) 20 mEq tablet,ER particles/crystals Discontinued 10 MEQ PO Daily August 11, 2024 10:30am November 03, 2024 4:02pmStart: 02-18-2024 End: 67-19-9099rxylbzmaa chloride CR (Klor-Con M20) 20 MEQ ER tablet Take 20 mEq by mouth Daily 01/28/2025 ActivepredniSONE 10 mg oral tablet (3 sources)predniSONE 10 MG as directed Orally take 4 tablets daily x3 days, take 3 tablets for 3 days, 2 tablets for 3 days, 1 tablet for 3 days Active QUEtiapine 25 mg oral tablet (20 sources)Atypical AntipsychoticStart: 44-09-9903ghlx 1 tablet by mouth three times dailyquetiapine 25 mg Tab 25 mg = 1 tab(s), Oral, TID Start Date: 11/16/24 Status: Ordered Medication Dispense Status: Completed Total Allowed Fills: 1 Fills Dispensed: 0Start: 10-02-2024 End: 09-95-7377oijv 1 tablet by mouth once dailyQuetiapine 25 mg tablet Active 25 MG PO Daily March 09, 2025 12:00am Complies with drug therapySpacer/Aero- Holding Chambers (BreatheRite Dulce Spacer Adult) misc (20 sources)Start: 82-56-3293Alwoko/Aero-Holding Chambers (BreatheRite Dulce Spacer Adult) misc Indications: Simple chronic bronchitis (HCC) 2 puffs 4 (four) times a day as needed (sob and cough) 1 each 02/17/2024 ActiveStart: 02-17-2024 Spacer/Aero-Holding Chambers (BreatheRite Dulce Spacer Adult) misc Indications: Simple chronic bronchitis (CMS/HCC) 2 puffs 4 (four) times a day as needed (sob and cough) 1 each 02/17/2024 Activeticagrelor 90 mg oral tablet (20 sources)Start: 39-79-7254xofu 1 tablet by mouth every twelve hoursBrilinta 90 MG tablet Take 90 mg by mouth every 12 (twelve) hours 01/16/2024 ActiveStart: 01-16-2024 End: 78-37-0527ewwu 1 tablet by mouth twice dailyTicagrelor (Brilinta) 90 mg Tablet Discontinued 90 MG PO Twice daily 180 90 January 16, 2024 12:00am August 11, 2024 10:30amVitafusion Fiber Well + Probiotics Gummies oral tablet, chewable (13 sources)Start: 30-32-9599ouaq 1 tablet by mouth once dailyVitafusion Fiber Well + Probiotics Gummies oral tablet, chewable tab(s), Oral, Daily, Refill(s) 0 Start Date: 03/02/24 Status: Ordered Repeat number: 1Start: 60-02-7324mtze 1 tablet by mouth once dailyVitafusion Fiber Well + Probiotics Gummies oral tablet, chewable tab(s), Oral, Daily, Refill(s) 0 Start Date: 03/02/24 Status: Orderedwarfarin sodium 2 mg oral tablet (20 sources)Vitamin K AntagonistStart: 67-26-2754wslv 1-2 tablets by mouth once dailywarfarin (Coumadin) [...] Hazardous med- See facility policy for handling/disposalStart: 35-39-8245hpju 0.5 tablet by mouth once dailywarfarin (COUMADIN) 2 MG tablet Take 0.5 tablets by mouth daily 04/21/2024 ActiveStart: 00-15-8151znytzqag 2 mg Tab 2 mg = 1 tab(s), Refills(s) 0 Start Date: 04/06/24 Status: Ordered Medication Dispense Status: Completed Total Allowed Fills: 1 Fills Dispensed: 0Start: 44-86-4269iogjbzii 2 mg Tab 2 mg = 1 tab(s), Refills(s) 0 Start Date: 04/06/24 Status: OrderedStart: 03-05-2024 End: 99-23-4329mezlmmuv (Coumadin) 5 mg tablet Indications: Paroxysmal atrial fibrillation (Multi) Take one tabletdaily in the evening. Follow with [facility]. Patient will take coumadin and eliquis together for 3 days only 14 tablet 03/05/2024 Activewarfarin placeholder: dosing by pharmacy (1 source)Start: 80-35-5857Vuoagv contact the pharmacy if a dose is not entered by 1600. Review INR prior to warfarin administration.water 1000 mg/ml irrigation solution (9 sources)Start: 86-24-4978cpssohm water irrigation solution Refill(s) 0 Start Date: 04/06/24 Status: OrderedStart: 62-93-9686kzforwc water irrigation solution See Instructions, 500 mL, Refill(s) 1, Irrigate zapien catheter asneeded with 60 cc sterile water, [id number], 187, cm, 10/03/23 14:11:00 EDT, Height/Length Dosing, 93, kg, 10/03/23 14:11:00 EDT, Weight Dosing Start Date: 10/03/23 Status: Ordered Completed/Discontinued Medications MedicationDrug Class(es)DatesSig (Normalized)Sig (Original)ARIPiprazole 5 mg oral tablet (20 sources)Atypical AntipsychoticStart: 11-03-2024 End: 00-58-7547bcgs 1 tablet by mouth once dailyAripiprazole 5 mg tablet Discontinued 5 MG PO Daily November 03, 2024 12:00am March 09, 2025 2:28pm Start: 10-15-2024 End: 49-32-4912ellr 2.5 mg by mouth at bedtimeARIPiprazole (Abilify) 5 MG tablet Take 2.5 mg by mouth at bedtime 10/15/2024 11/09/2024 Discontinued (Med list cleanup)Start: 09-23-2024 End: 31-74-8056Bsahgjkccyoo 2 mg tablet Discontinued 2 MG PO September 23, 2024 12:00am October 11, 2024 12:28pmStart: 09-21-2024 End: 06-21-8847fbnf 0.5 tablet by mouth at bedtimeARIPiprazole (Abilify) 2 MG tablet Indications: Hallucinations Take 0.5 tablets (1 mg) by mouth at bedtime 15 tablet 09/21/2024 10/19/2024 Discontinued (Discontinued by another clinician) aspirin 81 mg delayed release oral tablet (20 sources)Platelet Aggregation Inhibitor, Nonsteroidal Anti-inflammatory Drug Start: 10-22-2023 End: 25-78-0587Lqiztcq (Adult Low Dose Aspirin) 81 mg tablet,delayed release (DR/EC) Discontinued 81 MG PO Daily October 22, 2023 12:00am January 23, 2024 2:59pmStart: 18-89-5254culn 1 tablet by mouth once dailyAspirin 81 MG Oral Tablet Delayed Release TAKE 1 TABLET DAILY. Quantity: 90 Refills: 3 Ordered: 22-Jan-2023 Teo Al MD Start : 22-Jan-2023 ActiveStart: 05-16-2022 End: 70-00-3184dmwl 1 tablet by mouth once dailyAspirin 81 mg Tablet Discontinued 81 MG PO Daily May 16, 2022 1:00am June 21, 2022 11:01 am On Hold: Resume on 06/26/22. Hold this until after your abdominal aortic aneurysm is treated.azithromycin (ZITHROMAX) 500 mg in sodium chloride 0.9 % 250 mL IVPB (Hvtl0Mxv) (1 source)Start: 10-02-2024 End: 06-72-7447969 mg, IntraVENous, EVERY 24 HOURS, 2 doses, First dose on 10/02/24 at 1200, Last dose on 10/03/24 at 1200, Antimicrobial Indications: Pneumonia (CAP), CAP duration of therapy: 3 days, Use 20mm (Blue) Hhrg3Vhz Adapter Preparation instructions: Attach medication vial to one 20mm (Blue) Ogyf0Tzk adapter. James fluid bag with adapter, mix, and administer per order. benzonatate 100 mg oral capsule (10 sources)Non-narcotic AntitussiveStart: 03-08-2024 End: 11-79-0408avqm 1 capsule by mouth three times dailyBenzonatate 100 mg capsule Discontinued 100 MG PO Three times daily 13 12March 08, 2024 12:00am August 11, 2024 10:30amcefTRIAXone (ROCEPHIN) 1,000 mg in sterile water 10 mL IV syringe (1 source)Start: 10-02-2024 End: 53-14-0922phft 100 mg intravenously every twenty-four hours1,000 mg, IntraVENous, EVERY 24 HOURS, First dose on 10/02/24 at 1200, For 4 days, Administer asslow IV Push over 5 mins Reconstitute 1 g vials with 9.6 mL of designated diluent to produce a 100 mg/mL solution.cefuroxime 500 mg oral tablet (2 sources)Cephalosporin AntibacterialStart: 02-17-2024 End: 00-85-3575pgff 1 tablet by mouth in the morningcefuroxime (Ceftin) 500 MG tablet Indications: Pneumonia of left lower lobe due to infectious organism Take 1 tablet (500 mg) by mouth in the morning and 1 tablet (500 mg) before bedtime. Do all thisfor 7 days. 14 tablet 02/17/2024 02/25/2024 Discontinued (Therapy completed)ciprofloxacin 250 mg oral tablet (11 sources)Quinolone AntimicrobialStart: 10-05-2024 End: 57-37-8663vyvg 1 tablet by mouth every twelve hoursciprofloxacin (CIPRO) 250 MG tablet Take 1 tablet by mouth every 12 hours for 9 doses 9 tablet 10/0510/05/2024 Discontinued (Stop Taking at Discharge)Start: 10-05-2024 End: 24-00-3403127 mg, Oral, EVERY 12 HOURS SCHEDULED (2 [...] do not give by J tube. Start: 62-01-7634klat 1 tablet by mouth once dailyCipro 500 mg Tab = 1 tab(s), Oral, Daily, Refills(s) 0 Start Date: 04/06/24 Status: OrderedStart: 12-03-2022 take 1 tablet by mouth once dailyCipro 250 mg Tab 250 mg = 1 tab(s), Oral, Daily, Take 1 tablet the day before the procedure and 1 tablet after the procedure, # 6 tab(s), Refills(s) 0, Pharmacy: [id number], 187, cm, 09/18/2313:39:00 EDT, Height/Length Dosing, 93, kg, 09/18/22 14:39:00 EDT, Weight Dosing Start Date: 12/03/22 Status: OrderedStart: 58-58-6991mqya 1 tablet by mouth once dailyCipro 250 mg Tab 250 mg = 1 tab(s), Oral, Daily, Take 1 tablet the day before the procedure and 1 tablet after the procedure, # 2 tab(s), Refills(s) 0, Pharmacy: [id number], 187, cm, 239:11:00 EST, Height/Length Dosing, 93.5, kg, 06/11/22 9:11:00 EST, W... Start Date: 07/25/22 Status: Orderedfolic acid 1 mg oral tablet (20 sources)Start: 89-33-2195mmynp acid 1 mg Tab Refills(s) 0 Start Date: 06/10/22 Status: OrderedStart: 05-22-2022 End: 53-88-4113Fdbgf Acid 1 mg tablet Discontinued 1000 MCG PO Daily at bedtime June 21, 2022 11:02am October 22, 2023 11:05amStart: 05-22-2022 End: 64-28-6683kebo 1000 ug by mouth once daily at bedtimeFolic Acid Discontinued 1000 MCG PO Daily at bedtime June 21, 2022 11:02am October 22, 2023 11:05am10 ml iron sucrose 20 mg/ml injection (7 sources)Parenteral Iron ReplacementStart: 10-25-2024 End: 47-51-3334Vfid Sucrose (Venofer) 200 mg iron/10 mL solution Discontinued 200 MG IV Q3D October 25, 2024 12:00amJun2024 9:27am administer over 30 minsStart: 10-21-2024 End: 52-02-1433Llww Sucrose (Venofer) 200 mg iron/10 mL solution Discontinued 200 MG IV every week 50 October 25, 2024 2:24pm October 25, 2024 2:27pm administer over 2-5 minsStart: 10-04-2024 End: 49-11-4912869 mg, IntraVENous, ONCE, On 10/04/24 at 0900, [...] stable.melatonin 3 mg oral tablet (1 source)Start: 27-86-9126ijyf 3 mg by mouth once daily as needed3 mg, Oral, NIGHTLY PRN, Starting on 10/04/24 at 1903, Until Discontinued, SleepMulti Vitamin Oral Tablet (1 source)take 1 tablet by mouth once dailyMulti Vitamin Oral Tablet TAKE 1 TABLET DAILY. Quantity: 0 Refills: 0 Ordered: 22-Jan-2023 DO Activepolyethylene glycol 3350 94256 mg powder for oral solution (1 source)Osmotic LaxativeStart: 63-18-956895 g, Oral, DAILY PRN, Starting on 10/02/24 at 1050, Until Discontinued, Constipation, First line therapy for constipationPotassium Chloride (Klor-Con M20) 20 mEq tablet,ER particles/crystals (8 sources)Start: 03-08-2024 End: 38-16-3972Wutqhguhj Chloride (Klor-Con M20) 20 mEq tablet,ER particles/crystals Discontinued MEQ PO March 08, 2024 12:00am August 11, 2024 10:33amStart: 27-29-0819Fafucqfuw Chloride (Klor-Con M20) 20 mEq tablet,ER particles/crystals Active MEQ PO March 08, 2024 12:00am24 hr rivastigmine 0.192 mg/hr transdermal system (9 sources)Start: 10-11-2024 End: 17-73-4063qihdq 1 dose transdermal route every hour, then apply 1 dose transdermal route every twenty-four hoursRivastigmine (Exelon Patch) 4.6 mg/24 hour patch 24 hour Discontinued 4.6 MG TRANSDERML Daily October 11, 2024 12:00am March 09, 2025 2:29pmStart: 10-04-2024 End: 29-41-8345nkcrg 1 dose transdermal route once dailyrivastigmine (Exelon) 4.6 mg/[address] 1 patch on the skin once daily. 10/06/2024 03/29/2025 Dis continued (Discontinued by another clinician)simvastatin 20 mg oral tablet (20 sources)HMG-CoA Reductase InhibitorStart: 05-16-2022 End: 12-71-1994pcwd 1 tablet by mouth at bedtimeSimvastatin 20 mg tablet Discontinued 20 MG PO Bedtime May 16, 2022 1:00am January 1542:11pm 1000 ml sodium chloride 9 mg/ml injection (4 sources)Start: 10-02-2024 End: 86-19-0031JqagoNDKrdf, at 100 mL/hr, CONTINUOUS, Starting on 10/02/24 at 1130, For 12 hoursStart: 24-93-5880PrfnpGBHicz, at 5-250 mL/hr, PRN, if patient receiving [...] 20 mL/lumenSpacer/Aero-Holding Chambers device (13 sources) End: 65-18-5793Wmfzzu/Aero-Holding Chambers device every 8 (eight) hours. 05/13/2024 Discontinued (Therapy completed)Spacer/Aero-Holding Chambers device every 8 (eight) hours. Activespironolactone 25 mg oral tablet (19 sources)Aldosterone AntagonistStart: 10-03-2023 End: 12-06-7806rvcr 1 tablet by mouth once dailySpironolactone 25 mg tablet Discontinued 25 MG PO Daily October 22, 2023 12:00am January 23, 2024 2:59pm sulfamethoxazole 800 mg / trimethoprim 160 mg oral tablet (4 sources)Dihydrofolate Reductase Inhibitor Antibacterial, Sulfonamide AntimicrobialStart: 10-05-2024 End: 06-65-0411ocld 1 tablet by mouth once dailySulfamethoxazole-Trimethoprim 800-160 mg tablet Discontinued 1 TAB PO Daily October 11, 2024 12:00am November 03, 2024 4:02pmvitamin b12 1 mg oral capsule (20 sources)Vitamin U28Yzxgq: 05-22-2022 End: 98-96-8672vypk 1 capsule by mouth once daily at [...] involving other coronary artery of anterior wall]Onset: 213612-25-1105FuxwqpqLmrcpk; peripheral; and visceral artery aneurysms (20 sources)Abdominal aortic aneurysm; Translations: [Abdominal aneurysm without mention of rupture]Onset: 79-60-0353OqamyszQnjuinh on above:Problem List clean- up per request of Phys. EHR CmteAttention-deficit, conduct, and disruptive behavior disorders (1 source)Other symptoms and signs involving appearance and behavior; Translations: [Other symptoms and signsinvolving appearance and behavior]Onset: 84-90-9317GwfzgdnwSqcqfcib of urinary tract (20 sources)Urinary bladder stone; Translations: [Calculus in bladder]Onset: 77-33-6638JpgjieugHyhpmn of bladder (20 sources)Malignant tumor of urinary bladder; Translations: [Malignant neoplasm of bladder, unspecified]Onset: 76-61-1998IejibmjZdfcem of bladder (20 sources)History of malignant neoplasm of bladder; Translations: [Personal history of malignant neoplasm of bladder]Onset: 12-10-2022 Resolved: 03-62-8406DghnumakZcoxlc; other and unspecified primary (20 sources)H/O: malignant sddhsofv94-71-8879PoaockhhVbrpgea dysrhythmias (20 sources)Atrial fibrillation; Translations: [Unspecified atrial fibrillation] Onset: 11-11-2022 Resolved: 607586-53-8866GtxaweqQdgaomd kidney disease (20 sources)Chronic kidney disease stage 3B ; Translations: [Chronic kidney disease, stage 3b]Onset: 921881-78-8187XghjcpeBpxzjlk kidney disease (8 sources)Chronic kidney disease; Translations: [CHRONIC KIDNEY DISEASE STAGE 3B]Onset: 32-21-9963Veuppid obstructive pulmonary disease and bronchiectasis (20 sources)Pulmonary emphysema; Translations: [Simple chronic bronchitis]Onset: 493730-08-3157IbhxxpvIlpdwfapsadp of device; implant or graft (5 sources)Other mechanical complication of indwelling urethral catheter, initial encounter; Translations: [Mechanical complication of genitourinary device]Onset: 18-51-2035QpeqrfweXqyaxmsquh heart failure; nonhypertensive (20 sources)Chronic systolic heart failure; Translations: [Chronic systolic (congestive) heart failure]Onset: 808939-97-0992ZgcmykvBtbwsnpx atherosclerosis and other heart disease (20 sources)Ischemic myocardial dysfunction; Translations: [Ischemic cardiomyopathy]Onset: 919462-29-6939KqwmlbgRekhhrxo atherosclerosis and other heart disease (20 sources)Stented coronary artery; Translations: [Presence of coronary angioplasty implant and graft]Onset: 01-16-2024 Resolved: 583157-77-4789RwcawtamOchvojolfq and other anemia (20 sources)Anemia co-occurrent and due to chronic kidney disease stage 3; Translations: [Anemia due to stage 3b chronic kidney disease (HCC)]Onset: 595843-08-7930QxopqgsBbcvmoffzc and other anemia (15 sources)Anemia; Translations: [Anemia, unspecified]02-35-6640Vhjosubf Deficiency and other anemia (13 sources)Anemia, unspecified; Translations: [Anemia, unspecified]10-22-2023 EpisodicDelirium, dementia, and amnestic and other cognitive disorders (20 sources)Dementia; Translations: [Unspecified dementia without behavioral disturbance]Onset: 06-11-2022 Resolved: 13-96-7573MafnamoOdxgjimyf of lipid metabolism (20 sources)Dyslipidemia; Translations: [Other and unspecified hyperlipidemia] Onset: 20-28-4871HvtltxlYzosvhqrs hypertension (20 sources)Hypertensive disorder; Translations: [Unspecified essential hypertension]Onset: 460066-45-2208FoffucrZxetbumzrbkis symptoms and ill- defined conditions (2 sources)Urinary catheter in situ; Translations: [Presence of urogenital implants]96-58-4621ZfjppwoYhitrtopeiggf symptoms and ill-defined conditions (20 sources)Retention of urine; Translations: [Retention of urine, unspecified] Onset: 06-10-2022 Resolved: 43-46-0667GyrrexyeAdkebkrkvri of prostate (20 sources)Benign prostatic hypertrophy with outflow obstruction; Translations: [Benign prostatic hyperplasia with lower urinary tract symptoms]Onset: 41-65-5631AkbdaptXttmelqwojxb with complications and secondary hypertension (20 sources)Hypertensive chronic kidney disease with stage 1 through stage 4 chronic kidney disease, or unspecified chronic kidney disease; Translations: [Hypertensive renal disease]Onset: 02-22-2016 Resolved: 071035-43-1304EluimoePrjz effects of cerebrovascular disease (1 source)Other sequelae following unspecified cerebrovascular disease; Translations: [OTH SEQUELAE UNS CEREBROVASCULAR DZ]Onset: 64-19-0377Fkjbtbq Occlusion or stenosis of precerebral arteries (20 sources)Atherosclerosis of right carotid artery; Translations: [Occlusion and stenosis of right carotid artery]Onset: 954867-45-3983UrgfiprYmopj aftercare (3 sources)Other extermination inspector (current) drug therapy; Translations: [OTH JAIL CURRENT DRUG THERAPY]Onset: 18-88-4770RvkmbbiyIwcfy aftercare (2 sources)correction (current) use of anticoagulants; Translations: [NETWORK PROGRAM MANAGER CURRNT USE ANTICOAGULANTS]Onset: 36-06-0825EdapgvxbCvsyn aftercare (19 sources)Taking high risk medication; Translations: [Other penitentiary (current) drug therapy]Onset: 699858-81-5591PwvowjdmHttor aftercare (1 source)Long-term current use of anticoagulant; Translations: [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]Onset: 95-44-4829SrkobffmWaggt aftercare (5 sources)Patient encounter status; Translations: [Encounter for palliative care]Onset: 244039-73-1709ZewcvdclCyqzs and ill-defined cerebrovascular disease (20 sources)Cerebral ischemiaOnset: 606896-84-2697JtskocfAxpmh circulatory disease (1 source)Stented artery; Translations: [Presence of other vascular implants and grafts]92-11-0889EtrrtjhFdahw circulatory disease (1 source)Personal history of transient ischemic attack (TIA), and cerebral infarction without residual deficits; Translations: [PERS HX TIA AND CI NO RESID DEFICIT]Onset: 40-76-1112StrqmzlsInjqm circulatory disease (11 sources)Low blood pressure; Translations: [Hypotension, unspecified] 53-64-1460CjvczilfEsjzj diseases of bladder and urethra (2 sources)Disorder of bladder; Translations: [Other specified disorders of bladder]Onset: 38-90-4751ZtbmaxgOtkvi diseases of bladder and urethra (20 sources)Mass of urinary bladder; Translations: [Other specified disorders of bladder]01-32-1462KooecypPslbslz on above:Problem List clean-up per request of Phys. EHR CmteOther diseases of bladder and urethra (4 sources)Other specified disorders of bladder; Translations: [Other specified disorders of bladder]06-49-9109RbydlorTzzak diseases of bladder and urethra (20 sources)Lesion of jokbcmm27-67-3404BkbpfiiGgywz diseases of bladder and urethra (1 source)Diverticulum of bladder; Translations: [DIVERTICULUM OF BLADDER]Onset: 18-05-0810DxlmemlJpzqb diseases of bladder and urethra (1 source)Bladder disorder, unspecified; Translations: [BLADDER DISORDER UNSPECIFIED]Onset: 77-08-8774MhxxyjoGhukm diseases of kidney and ureters (20 sources)Hydroureter; Translations: [Hydroureter]Onset: 16-15-0585Ebfolcor Other diseases of kidney and ureters (2 sources)Disorder of kidney and/or ureter; Translations: [Disorder of kidney and ureter, unspecified]Onset: 95-77-2378AgbrgrfuVadrx diseases of kidney and ureters (20 sources)Crwmolelpowodz70-59-3891BzrdwtvxCwaqx diseases of kidney and ureters (20 sources)Kidney -21-9199XnnhzysuUuxpj diseases of kidney and ureters (7 sources)Unspecified hydronephrosis; Translations: [Hydronephrosis]Onset: 472140-09-7932ApktdcflPiwcu diseases of kidney and ureters (1 source)Urinary tract obstruction; Translations: [Other obstructive and reflux uropathy]Onset: 99-91-0931AhtdexwgWaavm diseases of kidney and ureters (15 sources)Obstructive nephropathy; Translations: [Other obstructive and reflux uropathy]67-25-6785TwtjjbwoHmzej diseases of kidney and ureters (13 sources)Other obstructive and reflux uropathy; Translations: [Other specified disorders of kidney and ureter]63-58-8873UeoyuhlbLxteb diseases of veins and lymphatics (1 source)Venous insufficiency (chronic) (peripheral); Translations: [VENOUS INSUFF CHRONIC PERIPHERAL]Onset: 34-08-0574ZubgpbqkRrqmh diseases of veins and lymphatics (2 sources)Disorder of vein of lower extremity; Translations: [Venous insufficiency (chronic) (peripheral)]00-51-4602YbqzpcpaIijkc ear and sense organ disorders (20 sources)Hearing difficulty; Translations: [Unspecified hearing loss, bilateral]Onset: 096640-21-6770RdgpnsaDboxt ear and sense organ disorders (20 sources)Hearing loss; Translations: [Unspecified hearing loss, unspecified ear]Onset: 651980-75-8094DbbgmyfJmyyp ear and sense organ disorders (2 sources)Mixed conductive and sensorineural hearing loss, bilateral; Translations: [Mixed conductive and sensorineural hearing loss, bilateral] 40-14-8732AqaknlyQbhmv gastrointestinal disorders (20 sources)Diarrhea; Translations: [Diarrhea, unspecified]62-87-8657Edqhmbji Comment on above:Problem List clean-up per request of Phys. EHR CmteOther gastrointestinal disorders (11 sources)Colonic lesion; Translations: [Disease of intestine, unspecified] 73-85-9696ZswsvndqDnttv injuries and conditions due to external causes (13 sources)Foreign body in bladder; Translations: [Foreign body in bladder, initial encounter]Onset: 36-10-7372AtrtppukIplgh nervous system disorders (20 sources)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; Translations: [Circadian rhythm sleep disorder, unspecified type]Onset: 104695-14-0565Zyzgzmr Comment on above:Problem List clean-up per request of Phys. EHR CmteOther nervous system disorders (20 sources)Metabolic encephalopathy; Translations: [Metabolic encephalopathy] Onset: 366492-50-5561CkzdnzeXhiqjaj on above:Problem List clean-up per request of Phys. EHR CmteOther nervous system disorders (4 sources)Metabolic encephalopathy; Translations: [Metabolic encephalopathy] 77-72-0849LgvrtyrJnjoe nervous system disorders (9 sources)Circadian rhythm sleep disorder, unspecified type; Translations: [Disruption of 24 hour sleep wake cycle, unspecified]Onset: 737995-68-6886 ChronicOther nervous system disorders (11 sources)Abnormal circadian rhythm; Translations: [Circadian rhythm sleep disorder, unspecified type]66-42-9268BiixbreEfwed nervous system disorders (1 source)Unspecified disturbances of skin sensation; Translations: [UNS DISTURBANCES OF SKIN SENSATION]Onset: 80-82-3129NqaszujrBzfvo nervous system disorders (2 sources)Impaired cognition; Translations: [Other symptoms and signs involving cognitive functions and awareness]46-17-5690UpgsoizjRgbvj nervous system disorders (1 source)Other symptoms and signs involving cognitive functions and awareness; Translations: [Other symptomsand signs involving cognitive functions and awareness]Onset: 21-82-3868VqdbpvxoKatrf nutritional; endocrine; and metabolic disorders (1 source)Other obesity due to excess calories; Translations: [OTHER OBESITY D/T EXCESS CALORIES]Onset: 58-48-4568LigynthCkkrp nutritional; endocrine; and metabolic disorders (19 sources)Overweight in adulthood with body mass index of 25 or more but less than 30; Translations: [Overweight]Onset: 02-10-2024 Resolved: 214124-69-7146TswuhyxpQidkn nutritional; endocrine; and metabolic disorders (2 sources)Body mass index (BMI) 25.0-25.9, adult; Translations: [Body mass index (BMI) 25.0-25.9, adult]Onset: 75-01-9139HjsycuwdXdeeatfurg and visceral atherosclerosis (1 source)Peripheral vascular disease; Translations: [Peripheral vascular disease, unspecified]60-41-4015MdzvqenFuhpboel codes; unclassified (20 sources)Tobacco user; Translations: [Tobacco use]75-53-8425HtctzcneFgxdcgn on above:quit aprilroblem List clean-up per request of Phys. EHR CmteResidual codes; unclassified (4 sources)Tobacco use; Translations: [Tobacco use disorder]12-67-5869Ileaaszb Residual codes; unclassified (14 sources)History of cardiovascular surgery; Translations: [Other specified postprocedural states]28-79-7655FfzbchgoVqgooagb codes; unclassified (12 sources)Delirium; Translations: [Disorientation, unspecified]01-23-2024 EpisodicResidual codes; unclassified (3 sources)Prevention status; Translations: [Need for prophylaxis against urinary tract infection]41-93-1659HugxtrizOtoyyamw codes; unclassified (2 sources)Hallucinations; Translations: [Hallucinations, unspecified]09-21-2024 EpisodicResidual codes; unclassified (1 source)Localized edema; Translations: [Localized edema]Onset: 10-02-2024 EpisodicScreening and history of mental health and substance abuse codes (20 sources)Ex-smoker; Translations: [Personal history of tobacco use]Onset: 384186-61-7563GffhjswqRrxlfky on above:05/17/23 quit;Thyroid disorders (5 sources)Hyperthyroidism; Translations: [Thyrotoxicosis, unspecified without thyrotoxic crisis or storm]Onset: 118044-32-4097ImfypetObcprjngu cerebral ischemia (20 sources)Transient cerebral ischemia; Translations: [Unspecified transient cerebral ischemia]Onset: 191934-61-4527YalcyejHlbpiue on above:Problem List clean-up per request of Phys. EHR CmteUnclassified (1 source)ABDOMINAL AA W/O RUPTURE UNSPCIFIED; Translations: [ABDOMINAL AA W/O RUPTURE UNSPCIFIED]Onset: 74-01-1388Iojjwmzujven (1 source)CONTACT W/AND (SUSP) EXPOS COVID-19; Translations: [CONTACT W/AND (SUSP) EXPOS COVID-19]Onset: 46-83-6005Itutkvaladsp (10 sources)Drug therapy woszbxa38-44-0818Drkmsudstqrg (2 sources)Abdominal aortic aneurysm, without rupture, unspecified; Translations: [Abdominal aortic aneurysm, without rupture, unspecified]Onset: 50-75-8913Uikkomsdomyh (1 source)Abdominal aortic aneurysm, without rupture, unspecified (CMS-HCC); Translations: [Abdominal aortic aneurysm, without rupture, unspecified (CMS-HCC)]Onset: 95-16-3843Qauiclpyiida (1 source)Long-term current use of drug vapazvz07-77-4190Nynbspc tract infections (20 sources)Urinary tract infectious disease; Translations: [Urinary tract infection, site not specified]Onset: 158035-37-4314LfemcoigGfjdkqu on above:Problem List clean-up per request of Phys. EHR CmteViral infection (4 sources)COVID-19; Translations: [COVID-19]Onset: 01-04-2022 Past or Other Problems Problem ClassificationProblemDateDocumented DateEpisodic/ChronicAcute and unspecified renal failure (20 sources)Acute renal failure syndrome; Translations: [Acute kidney failure, unspecified]Onset: 05-16-2022 Resolved: 23-01-8400RbsvlzurQctqxaf on above:Problem List clean-up per request of Phys. EHR CmteAdministrative/social admission (20 sources)Other reduced mobility; Translations: [Impaired mobility and activities of daily living]Onset: 425105-34-5755DiplnlscGllun and electrolyte disorders (20 sources)Hyperkalemia; Translations: [Metabolic acidosis]Onset: 05-16-2022 Resolved: 496055-39-3325YrfpwhgsFhgmvhz on above:Problem List clean-up per request of Phys. EHR CmteMalaise and fatigue (4 sources)Other fatigue; Translations: [OTHER FATIGUE]Onset: 33-40-4389Ndlyaeyv Mood disorders (20 sources)Mood disordersOnset: 05-12-2023 Resolved: Nausea and vomiting (1 source)Vomiting, unspecified; Translations: [VOMITING UNSPECIFIED]Onset: 17-85-7096TtkvvuesTfhnvurjf of unspecified nature or uncertain behavior (20 sources)Neoplasm of unspecified behavior of bladder; Translations: [Neoplasm of bladder]Onset: 06-67-1177LncuimokKaqrmacutqk deficiencies (20 sources)Cobalamin deficiency; Translations: [Deficiency of other specified B group vitamins]Onset: 702586-03-7122UmwaivaoQbdtnmb on above:Problem List clean-up per request of Phys. EHR CmteOther aftercare (1 source)correction (current) use of aspirin; Translations: [JAIL 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]Onset: 17-83-5603WxsvcmxxRrfjb aftercare (20 sources)Polypharmacy ; Translations: [Other extermination inspector (current) drug therapy]Onset: 013839-69-1494OatryvboHlxjt circulatory disease (2 sources)Personal history of other diseases of the circulatory system; Translations: [Personal history of other diseases of the circulatory system] Onset: 80-06-4190SvjyotzuImklm circulatory disease (5 sources)Hypotension, unspecified; Translations: [Hypotension, unspecified] Onset: 434387-79-5743OvcsmrnqYfapn circulatory disease (20 sources)H/O: cardiovascular disease; Translations: [Personal history of other diseases of the circulatory system]Onset: 02-22-2016 Resolved: 040307-36-1567LjcgoawiPoqsf circulatory disease (3 sources)Other specified symptoms and signs involving the circulatory and respiratory systems; Translations:[Other symptoms involving respiratory system and chest]Onset: 846093-63-3203NyewjviuZhwaq diseases of kidney and ureters (20 sources)Bilateral hydronephrosis ; Translations: [Unspecified hydronephrosis]Onset: 937520-95-3966RtaqiyyyJxbit diseases of veins and lymphatics (20 sources)Venous insufficiency of leg; Translations: [Venous insufficiency (chronic) (peripheral)]Onset: 950855-81-3147MvkckymqPslpj gastrointestinal disorders (5 sources)Diarrhea, unspecified; Translations: [Diarrhea]Onset: 05-23-2022 59-49-4866XnkvdonnUhfhv nervous system disorders (20 sources)White matter disease; Translations: [White matter disease, unspecified]Onset: 845910-41-5387FlsyfevgNesjw nutritional; endocrine; and metabolic disorders (3 sources)Body mass index (BMI) 26.0-26.9, adult; Translations: [BODY MASS INDEX BMI 26.0-26.9 ADULT]Onset: 41-70-6531GupdrbqkAqirm nutritional; endocrine; and metabolic disorders (1 source)Anorexia; Translations: [ANOREXIA]Onset: 19-35-9143RdefuzzrZpkfq nutritional; endocrine; and metabolic disorders (1 source)Abnormal weight loss; Translations: [ABNORMAL WEIGHT LOSS]Onset: 49-79-7231LsncdlqzVmxgx nutritional; endocrine; and metabolic disorders (20 sources)Overweight; Translations: [Overweight]Onset: 095663-26-8527 EpisodicOther screening for suspected conditions (not mental disorders or infectious disease) (7 sources)Other specified abnormal findings of blood chemistry; Translations: [Prolonged QT interval]Onset: 67-23-4006WokuveggYaeojigsl (except that caused by tuberculosis or sexually transmitted disease) (20 sources)Left lower zone pneumonia; Translations: [Pneumonia, unspecified organism]Onset: 726152-92-7708YixyqtkzJjijuxpn codes; unclassified (8 sources)Other specified postprocedural states; Translations: [Other postprocedural status]Onset: 87-97-8651PjoatpcuBedztavi codes; unclassified (1 source)Chills (without fever); Translations: [CHILLS WITHOUT FEVER]Onset: 93-14-6447EabxljxxKgvchfze codes; unclassified (5 sources)Disorientation, unspecified; Translations: [Other alteration of consciousness]Onset: 307367-59-5785JqpprfjeRrissscg codes; unclassified (20 sources)Edema of lower extremity; Translations: [Localized edema]Onset: 347719-73-6206DpebhwslDmpgybzd codes; unclassified (1 source)Other specified health status; Translations: [Other specified health status]Onset: 63-92-3745PlsiekkxTflnyrojn-related disorders (20 sources)Nicotine dependence, cigarettes, uncomplicated; Translations: [Smoker]Onset: 02-23-2015 Resolved: 480328-88-8000RrmdlmzMvaerjd on above:1/2 dozen cigarettes; Unclassified (3 sources)Abdominal aortic aneurysm (AAA) without rupture, unspecified part I71.40Unclassified (3 sources)Infrarenal abdominal aortic aneurysm (AAA) without rupture I71.43 Unclassified (20 sources)Onset: 02-10-2024 Resolved: 161007-65-9557Vzgsvxrmtkcc (1 source)Abdominal aortic aneurysm, without rupture, unspecified; Translations: [Abdominal aortic aneurysm, without rupture, unspecified]Onset: 09-10-2024 Unclassified (1 source)Abdominal aortic aneurysm, without rupture, unspecified (CMS-HCC); Translations: [Abdominal aortic aneurysm, without rupture, unspecified (CMS-HCC)]Onset: 05-21-2024 Results Test NameValueInterpretationReference RangeFacilityC Urineon 72-54-1944Vqjkztyl identified Cx Nom (U)Microbiology PROCEDURE: Urine Culture [R1] SOURCE: U Cath BODY SITE: COLLECTED DATE/TIME: 03/31/2025 16:22 EST RECEIVED DATE/TIME: 04/01/2025 18:33 EST START DATE/TIME: 04/01/2025 18:34 EST FREE TEXT SOURCE: cath Orzech SKY LINE YARDER, SALES ACCOUNT SPECIALIST-C, Orzech SKY LINE YARDER, SALES ACCOUNT SPECIALIST-C, Blanca X Blanca X FINAL REPORTS Final [...] Locations R1: This test was performed at: [facility], [address] [place] [address], [address]- , , NhrrqxVnyhiwMadison HealthComment on above:Performed By: #### [id number] #### [facility] [address] [place], [place] [address]Ixzolxmpiv Visit Summaryon 94-73-1523Rrxftljcup Visit Summary Ambulatory Visit Summary ALEX ANDERSON [...] APRN, [place] X Where: [facility] [address] [address]- You Need to Schedule the Following Appointments Follow Up with Elvi CHAUDHARI, GIANCARLO-C, Blanca X, FAM, URL When: Where: Medications What How Much When Instructions New doxycycline (doxycycline hyclate 100 mg Cap) 1 Capsules By Mouth 2 times a day Duration: 7 Daysmay substitute hyclate for monohydrate based on availability Pickup at [facility]/pharmacy #[id number] Unchanged albuterol (Albuterol (Eqv-ProAir HFA) 90 [...] physician if questions or concerns Pharmacy Information [facility]/pharmacy #[id number]: [address], [place] [id number] [phone] Allergies No Known Allergies No Known Medication [...] choosing us fo (more content not included)... [facility] HospitalUrology Office/Clinic Noteon 34-28-6686Vwqjsls Office/Clinic NoteUrology Office/Clinic Note Chief Complaint Pt [...] 2025 (recall in place) 4. 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 Elevated risk for periop complications in the future. Follow-up With When Contact Information TC Boles APRN, Blanca Hadley, FAM, URL Additional Instructions: [...] with voice recognition artificial intelligence software, specifically [employer]ena, [employer] and or [employer]. Substitutions may have occurred due to the inherent limitations of voice recognition and artificial intelligence software. Problem List/Past Medical History Ongoing Abdominal aortic aneurysm Acute kidney failure Anticoagulated Antiplatelet or antithrombotic long-term use Bladder cancer Blad (more content not included)...The Jewish HospitalComment on above:Result Comment: Electronically Signed By: TC Boles APRN, Blanca Hadley\.br\Date and Time Signed: 03/31/25 16:30 EST\.br\Electronically Co-Signed By: Apple Escoto\.br\Date and Time Co-Signed: 03/31/25 16:14 ESTECG 12 Leadon 38-95-1814Aezjlg sinus rhythm, IVCD, septal myocardial infarction of undetermined age, diffuse repolarization abnormalities, abnormal ECGCPACSGeorgetown Behavioral Hospital Work Phone: xr CHEST 2Von 03-47-0729[place] [address] XRay Report Signed Patient: ALEX ANDERSON MR#: [id number] : 1945 Acct:[id number] Age/Sex: 79 / M ADM Date: 03/22/25 Loc: RAD Attending Dr: TEO LA Ordering Physician: TEO AL Date of Service: 03/22/25 Procedure(s): XR chest 2V Accession Number(s): [id number] cc: STANLEY EMERSON ; TEO AL [place] [address] Patient Name: ALEX ANDERSON MRN: [id number] date: 1945 Sex: M Assigned Patient Location: [facility] Current Patient Location: RAD Accession/Order Number: [id number] Exam Date: 03/22/2025 11:45 Report Date: 03/22/2025 [...] Person M.D. 03/22/2025 12:26 PM Dictation Location: [place] [address] Electronically authenticated by: [id number] Y Date: 03/22/2025 12:26 Dictated By: Amy Person M.D. Signed By: 03/22/25 1229 DD/ 1226 TD/TT: Authors Motivational:TBHRadiology, Radiologist, MD - 03/22/2025 [place] [address] XRay Report Signed Patient: ALEX ANDERSON MR#: [id number] : 1945 Acct:[id number] Age/Sex: 79 / M ADM Date: 03/22/25 Loc: RAD Attending Dr: TEO AL Ordering Physician: TEO AL Date of Service: 03/22/25 Procedure(s): XR chest 2V Accession Number(s): [id number] cc: STANLEY EMERSON ; TEO AL [place] [id number] Patient Name: ALEX ANDERSON MRN: [id number] date: 1945 Sex: M Assigned Patient Location: [facility] Current Patient Location: [facility] Accession/Order Number: [id number] Exam Date: 03/22/2025 11:45 Report Date: 03/22/2025 [...] Person M.D. 03/22/2025 12:26 PM Dictation Location: [place] [address] Electronically authenticated by: [id number] Y Date: 03/22/2025 12:26 Dictated By: Amy Person M.D. Signed By: 03/22/25 1229 DD/ 1226 TD/TT: Authors Motivational: [facility] HealthcareRadiology Study observation (narrative)NOMS HealthcareXR CHEST 2V Ordered By: Radiologist Radiology on 51-31-2829KJZV Healthcare Work Phone: all BASIC METABOLIC PANELon 58-64-6107Awxlw gap [Moles/Vol]16.4 mmol/LNOMS HealthcareCalcium [Mass/Vol]8.8 mg/dL8.5 - 10.1 mg/dL [facility] HealthcareChloride [Moles/Vol]107 mmol/L98 - 107 mmol/LNOMS HealthcareCO2 [Moles/Vol]27.5 mmol/L21.0 - 32.0 mmol/LNOMS HealthcareCreatinine [Mass/Vol]1.80 mg/dLHigh0.70 - 1.30 mg/dLNOCO HealthcareGFR/1.73 sq M.predicted CKD-EPI (S/P/Bld) [Vol rate/Area]44Low>=60 mL/min/1.73m 2NOKLAHOMA SPINE H[facility] HealthcareGlucose [Mass/Vol]88 mg/dL74 - 106 mg/dLNOCO HealthcarePotassium [Moles/Vol]3.9 mmol/L 3.5 - 5.1 mmol/LNOKLAHOMA SPINE HOSPITAL [facility] [place] HealthcareSodium [Moles/Vol]147 mmol/MPdhr925 - 145 mmol/L [facility] HealthcareTBH EGFR-NON AF ENWZWUMF24Ekn>=60 mL/min/1.73m 2NMercy Hospital St[address] John's Urea nitrogen [Mass/Vol]26.0 mg/dLHigh7.0 - 18.0 mg/dLNOCO HealthcareUrea nitrogen/Creatinine [Mass ratio]14.4 mg/mgNOSt. Louis Behavioral Medicine InstituteALL LIPID PROFILE (FASTING)on 43-30-6503EMAF HDL RATIO2.2NOKLAHOMA SPINE HOSPITAL [facility] HealthcareComment on above:3.3 - 4.4 LOW RISK 4.4 - 7.1 AVERAGE RISK 7.1 - 11.0 MODERATE RISK >11.0 HIGH RISK Cholesterol [Mass/Vol]86 mg/dLNINF - 200 mg/dLNOSt. Louis Behavioral Medicine InstituteCholesterol in HDL [Mass/Vol]39 mg/dLLow40 - 60 mg/dLNOCO HealthcareComment on above:> or =60 mg/dl - LOW CARDIOVASCULAR RISK <40 mg/dl - HIGH CARDIOVASCULAR RISK Magnesium [Mass/Vol]33.0 mg/dLNOCO HealthcareComment on above:<100 mg/dl OPTIMAL 100-129 mg/dl NEAR OR ABOVE OPTIMAL 130-159 mg/dl BORDERLINE HIGH 160-189 mg/dl HIGH >190 mg/dl VERY HIGH Magnesium [Mass/Vol]14.8 mg/dLNOSt. Louis Behavioral Medicine InstituteTriglyceride [Mass/Vol]74 mg/dLNINF - 150 mg/dLCox Walnut LawnALL THYROID STIM HORMONEon 83-42-6653CDE Qn16.644 m[IU]/LHighNOCO HealthcareCCF Gabby 61-01-3429CNJ [Catalytic activity/Vol]18 U/L 15 - 37 U/LNOMS HealthcareNo Panel Informationon 16-05-6800Ikshjqhvbhwxyn and review of laboratory resultsAbnormalNOSt. Louis Behavioral Medicine InstituteCLINISYNCNOKLAHOMA [facility] [place] Healthcare Ambulatory Visit Summaryon 49-43-5617Grqbkxvhmk Visit SummaryAmbulatory Visit Summary ALEX ANDERSON :1945 [...] Boles APRN, [place] X Where: [facility] [address] [address]- Medications What How Much When Instructions Unchanged [...] yet, please contact Health Information Management at [phone] to get signed up today. Language Information Language assistance services are available as needed. [facility] HospitalErythrocyte distribution width Auto (RBC) [Ratio]Ordered By: Celia Griffin on 63-65-9352Oaqszcptqua distribution width (RBC) [Ratio]15.7 %High11.0-15.0[facility] Glomerular filtration rate (GFR) estimation in non- AmericanOrdered By: Celia Griffin on 18-89-7828KQO/1.73 sq M.predicted among non-blacks MDRD (S/P/Bld) [Vol rate/Area]28 mL/min/{1.73_m2}Low>=60 mL/min/1.73m [address] [place] [address] CBC WITH PLATELET NO DIFFERENTIALon 02-28-2025 Erythrocyte distribution width (RBC) [Ratio]15.7 %High11.0 - 15.0 %NOMS HealthcareHematocrit (Bld) [Volume fraction]38.4 %Low42.0 - 54.0 %[facility] HealthcareHemoglobin (Bld) [Mass/Vol]11.6 g/dLLow14.0 - 18.0 g/dLCox Walnut Lawn Interpretation and review of laboratory resultsAbnormalNOPershing Memorial HospitalH (RBC) [Entitic mass]26.6 pg25.9 - 34.0 pgExcelsior Springs Medical CenterHC (RBC) [Mass/Vol]30.2 g/dL 29.9 - 35.2 g/dLExcelsior Springs Medical CenterV (RBC) [Entitic vol]88.1 fL80.0 - 94.0 fLCox Walnut LawnPlatelet mean volume (Bld) [Entitic vol]10 fL9.5 - 13.5 fLCox Walnut LawnTB WTV010RXJNSt. Louis Behavioral Medicine InstituteTB RBC4.36LowNOSt. Louis Behavioral Medicine InstituteTB WBC7.1NOMS HealthcareCLINISYNCNOMS HealthcareHematocrit Auto (Bld) [Volume fraction]Ordered By: Celia Griffin on 28-95-3518Oyahltojfk (Bld) [Volume fraction]38.4 %Low 42.0-54.0[facility] Regional Medical CenterHemoglobin [Mass/volume] in Blood Ordered By: Celia Griffin on 46-29-6696Hynirlrfmr (Bld) [Mass/Vol]11.6 g/dLLow 14.0-18.0[facility] HospitalIron binding capacity [Mass/volume] in Serum or PlasmaOrdered By: Celia Griffin on 95-50-2622Phvi binding capacity [Mass/Vol]301.0 ug/dL250.0-450.0[facility] HospitalIron saturation [Mass Fraction] in Serum or PlasmaOrdered By: Celia Griffin on 74-46-2315Gkze saturation [Mass fraction]9.6 %[facility] HospitalLaboratory - Chemistry and Chemistry - challengeOrdered By: Celia Griffin on 65-30-9073Joaames [Mass/Vol]3.8 g/dL3.4-5.0[facility] HospitalCalcium [Mass/Vol]8.6 mg/dL8.5-10.1FBerger HospitalChloride [Moles/Vol]108 mmol/LHigh 98-107[facility] HospitalCO2 [Moles/Vol]27.9 mmol/L21.0-32.0 [facility] HospitalCobalamin (Vitamin B12) [Mass/Vol]689 pg/mL 232-1245[facility] HospitalComment on above:Performed at: - [facility] [address] [id number] Director: Morgan Carpenter PhD, Phone: [phone] [Mass/Vol]2.27 mg/dLHigh0.70-1.30 [facility] HospitalFerritin [Mass/Vol]59.0 ng/mL26.0-388.0 [facility] HospitalGFR/1.73 sq M.predicted MDRD (S/P/Bld) [Vol rate/Area]34 mL/min/{1.73_m2}Low>=60 mL/min/1.73m 2FBerger HospitalGlucose [Mass/Vol]105 mg/fP33-835FoyuhmbxiKeenan Private HospitalIron [Mass/Vol]29.0 ug/dLLow65.0-175.0[facility] HospitalMagnesium [Mass/Vol]2.3 mg/dL1.8-2.4FBerger HospitalPotassium [Moles/Vol] 3.8 mmol/L3.5-5.1FMemorial Health System Marietta Memorial Hospitalodium [Moles/Vol]145 mmol/L 136-145[facility] HospitalUrate [Mass/Vol]6.5 mg/dL3.5-7.2 [facility] HospitalUrea nitrogen [Mass/Vol]31.0 mg/dLHigh7.0-18.0 [facility] HospitalUrea nitrogen/Creatinine [Mass ratio]13.7 mg/mg [facility] HospitalLaboratory - UrinalysisOrdered By: Celia Griffin on 14-89-3519Ytzmgep (U) [Mass/Vol]7.7 mg/dL<=11.9[facility] HospitalLeukocytes [#/volume] corrected for nucleated erythrocytes in Blood by Automated counOrdered By: Celia Griffin on 14-70-9516LKS corrected for nucl RBC Auto (Bld) [#/Vol]7.1 10 3/uL4.0-11.0[facility] Health SystemH Auto (RBC) [Entitic mass]Ordered By: Celia Griffin on 10-01-2700TQK (RBC) [Entitic mass]26.6 pg25.9-34.0[facility] HospitalMCHC Auto (RBC) [Mass/Vol] Ordered By: Celia Griffin on 11-93-1333RUKC (RBC) [Mass/Vol]30.2 g/dL29.9-35.2 [facility] HospitalMCV Auto (RBC) [Entitic vol]Ordered By: Celia Griffin on 09-47-6732KER (RBC) [Entitic vol]88.1 fL80.0-94.0[facility] HospitalNo Panel InformationOrdered By: Celia Griffin on - Hydroxy Vitamin D Total56.8 ng/mLKeenan Private HospitalComment on above:<20 ng/mL Vit D poqdropsi15-<30 ng/mL Vit D xebhroqvbanp84-338 ng/mL Vit D sufficient>100 ng/mL Potential ToxicityFolate>20.0 ng/mL>3.0[facility] HospitalComment on above:A serum folate concentration of less than 3.1 ng/mL isconsidered to represent clinical deficiency.Performed at: [facility] [address] [id number] Director: Morgan Carpenter PhD, Phone: [phone] Hormone (Intact)69 pg/zAWonuhqmt11-75VbammncbdKeenan Private HospitalComment on above:Performed at: [facility] [address] [id number] Director: Morgan Carpenter PhD, Phone: [phone] Level3.1 mg/dL2.6-4.7FBerger HospitalUrine Random Rfevzhbgww79.47 mg/dLLow20.00-300.00[facility] Platelet mean volume Auto (Bld) [Entitic vol]Ordered By: Celia Griffin on 92-69-4453Xkdmlboc mean volume (Bld) [Entitic vol]10.0 fL9.5-13.5FBerger HospitalPlatelets Auto (Bld) [#/Vol]Ordered By: Celia Griffin on 44-21-7315Wjuhmlfgm (Bld) [#/Vol]193 10 3/qG484-997QvvtntyegKeenan Private HospitalRBC Auto (Bld) [#/Vol]Ordered By: Celia Griffin on 50-51-4148PMA (Bld) [#/Vol]4.36 10 6/uLLow4.70-6.10Kettering Health Springfielderum or plasma anion gap determinationOrdered By: Celia Griffin on 00-86-6677Mtjch gap [Moles/Vol]12.9 mmol/LFBerger HospitalUrine protein/creatinine ratioOrdered By: Celia Griffin on 65-82-8436Hxhzlku/Creatinine (U) [Ratio]0.47 [facility] HospitalAmbulatory Visit Summaryon 62-79-4272Edmfiynyez Visit SummaryAmbulatory Visit Summary ALEX ANDERSON :1945 [...] APRN, [place] X Where: [facility] [place] [id number]- Medications What How Much When Instructions Unchanged [...] signed up for this yet, please contact [employer] at [phone] to get signed up today. Language Information Language assistance services are available as needed. [facility] HospitalALL HEMOGLOBINon 02-02-2025 Hemoglobin (Bld) [Mass/Vol]10.9 g/dLLow14.0 - 18.0 g/dLNOCO Healthcare Interpretation and review of laboratory resultsAbnormalCox Walnut LawnCLINISYN NOMS HealthcareUroVysion Fish and Urine Cyto (P4 Labs)on 13-55-3767OQCWVF & UC Diagnosis InfoInvalid Interpretation Nella [facility] Samaritan HospitalComment on above:Result Comment: A:Urine,Bladder Wash:Bladder Wash [...] with cytology and cystoscopy results. * CPT: 02254, 80620. Microscopic Notes - Microscopic Notes - Abnormal cells 9p21 deletions: Abnormal cells aneploid events: Total cells analyzed: 69 Hematuria: Gross Description Site ID:A color Light Yellow fixative Alcohol Received 100 mls of clear light yellow fluid with thepatient's name and, Bladder Wash on the vial. Electronically signed by : on: 11/29/2024 06:34:10Performed By: #### [id number] #### Ciro [facility] [address] [place], [place] [address]Lsyiecdtyb Visit Summaryon 13-91-6845Afdbikqaji Visit Summary Ambulatory Visit Summary ALEX ANDERSON [...] Eboni Anderson PA-C Where: [facility] [address] [place] [address]- You Need to Schedule the Following Appointments Follow Up with ABRIL CASILLAS, ADRIA Sterling When: Where: [facility] [address], [place] [address]- Medications What How Much When Instructions Unchanged [...] History of bladder c (more content not included)...[facility] 70-63-1804MbklncqnwOmkfsntqx From: Dana Rivas To: EU - Recalls Abril; Sent: 08/06/2024 15:16:19 EDT Show up: 01/24/2025 15:16:00 EDT Subject: cysto/fish/cytol Due Date/Time: 02/21/2025 15:16:00 EDT Reminder/Recall Patient is due in Mar 2025 for 6 month cysto/fish/cytol, bt ck Patient is due in October 2025 for 1 year cysto/FISH/cytol, bt ckNormCincinnati VA Medical CenterUroVysion Fish and Urine Cyto (P4 Labs)on 93-03-7398DNMK Method of ExtractionBladder WashThe Jewish HospitalComment on above: Performed By: #### [id number] #### [facility] [address] [place], [place] [address]FLIK Number of Vklp7Thzfgmi Interpretation CodeFulton County Health CenterComment on above:Performed By: #### [id number] #### [facility] [address] [place], [place] [address]WKHI SpecimenBladder [facility] Comment on above:Performed By: #### [id number] #### [facility] [address] [place], [place] [address]JYST Type of ServiceTechnical OnlyThe Jewish HospitalComment on above:Performed By: #### [id number] #### [facility] [address] [place], [place] [address]Fxjzvsi Office/Clinic Noteon 96-97-1986Dujoizk Office/Clinic NoteUrology Office/Clinic Note Chief Complaint Cysto [...] Urology [address], [place] [address]- Additional Instructions: 1 yr surveillance cysto/bt ck/FISH/cytol [...] mg oral tablet, extended (more content not included)...The Jewish HospitalComment on above:Result Comment: Electronically Signed By: Katia SAMUELS MD\.br\Date and Time Signed: 11/16/24 14:52 EDT\.br\Electronically Co-Signed By: Citlalli Rushing.br\Date and Time Co-Signed: 11/16/24 14:44 EDTAmbulatory Visit Summaryon 92-02-3972Cwbcarhgcw Visit SummaryAmbulatory Visit Summary ALEX ANDERSON :1945 [...] CASILLAS, Katia Macias Where: [facility] Dominic [address] [place] [address]- Medications What How Much When Instructions Unchanged [...] you for choosing us for your care. [facility] HospitalErythrocyte distribution width Auto (RBC) [Ratio]on 19-54-6119Dkpvduigqyo distribution width (RBC) [Ratio] Erythrocyte distribution width [Ratio] by Automated uarozLnyz51.0-15.0[facility] HospitalEstimated glomerular filtration rate (GFR) non- Americanon 81-24-8245CLP/1.73 sq M.predicted among non-blacks MDRD (S/P/Bld) [Vol rate/Area]Estimated glomerular filtration rate (GFR) non- Low>=60 mL/min/1.73m [address] [place] [address] CBC WITH PLATELET NO DIFFERENTIALon 85-13-5671Njnszgllpor distribution width (RBC) [Ratio]18.7 %High 11.0 - 15.0 %Cox Walnut LawnHematocrit (Bld) [Volume fraction]35.8 %Low42.0 - 54.0 %[facility] Walnut LawnHemoglobin (Bld) [Mass/Vol]10.7 g/dLLow14.0 - 18.0 g/dLCox Walnut LawnInterpretation and review of laboratory resultsAbnormalExcelsior Springs Medical CenterH (RBC) [Entitic mass]24 pgLow25.9 - 34.0 pgExcelsior Springs Medical CenterHC (RBC) [Mass/Vol]29.9 g/dL29.9 - 35.2 g/dLExcelsior Springs Medical CenterV (RBC) [Entitic vol] 80.4 fL80.0 - 94.0 fLCox Walnut LawnPlatelet mean volume (Bld) [Entitic vol]9.6 fL9.5 - 13.5 fLThe Rehabilitation Institute NGC429DEZXMercy Hospital Joplin RBC4.45LowCox Walnut LawnTB WBC6.7Cox Walnut LawnCLINISYNCNOMS HealthcareHematocrit Auto (Bld) [Volume fraction]on 11-08-2846Hxantjngzi (Bld) [Volume fraction]Hematocrit [Volume Fraction] of Blood by Automated czjteXpn28.0-54.0[facility] HospitalHemoglobin [Mass/volume] in Bloodon 02-79-2745Qwmmbuswiv (Bld) [Mass/Vol]Hemoglobin [Mass/volume] in YwdsqUrw86.0-18.0[facility] HospitalIron binding capacity [Mass/volume] in Serum or Plasmaon 93-04-9803Derl binding capacity [Mass/Vol]Iron binding capacity [Mass/volume] in Serum or Ixdgzt156.0-450.0[facility] HospitalIron saturation [Mass Fraction] in Serum or Plasmaon 73-49-0157Fqqw saturation [Mass fraction] Iron saturation [Mass Fraction] in Serum or PlasmaKeenan Private HospitalLaboratory - Chemistry and Chemistry - challengeon 65-59-5715Yyrpqzc [Mass/Vol]3.3 g/dLLow3.4-5.0[facility] HospitalCalcium [Mass/Vol] 8.7 mg/dL8.5-10.1FBerger HospitalChloride [Moles/Vol]104 mmol/L 98-107[facility] HospitalCO2 [Moles/Vol]29.3 mmol/L21.0-32.0 [facility] HospitalCobalamin (Vitamin B12) [Mass/Vol]593 pg/mL 232-1245[facility] HospitalComment on above:Performed at: - [facility] [address] [id number] Director: Morgan Carpenter PhD, Phone: [phone] [Mass/Vol]2.17 mg/dLHigh0.70-1.30 [facility] HospitalGFR/1.73 sq M.predicted MDRD (S/P/Bld) [Vol rate/Area]36 mL/min/{1.73_m2}Low>=60 mL/min/1.73m 2FBerger HospitalGlucose [Mass/Vol]95 mg/oL97-993MmwshvnlrKeenan Private HospitalIron [Mass/Vol]34.0 ug/dLLow65.0-175.0[facility] HospitalMagnesium [Mass/Vol]2.1 mg/dL1.8-2.4FBerger HospitalPotassium [Moles/Vol] 3.4 mmol/LLow3.5-5.1FMemorial Health System Marietta Memorial Hospitalodium [Moles/Vol]144 mmol/T840-114LujikaytxKeenan Private HospitalUrea nitrogen [Mass/Vol]35.0 mg/dL High7.0-18.0[facility] HospitalUrea nitrogen/Creatinine [Mass ratio]16.1 mg/mgKeenan Private HospitalLaboratory - Urinalysison 34-73-0133Hrrapbn (U) [Mass/Vol]54.5 mg/dLHigh<=11.9[facility] HospitalLeukocytes [#/volume] corrected for nucleated erythrocytes in Blood by Automated counon 47-71-5211BNN corrected for nucl RBC Auto (Bld) [#/Vol] Leukocytes [#/volume] corrected for nucleated erythrocytes in Blood by Automated coun4.0-11.0[facility] HospitalMCH Auto (RBC) [Entitic mass]on 60-22-1265STI (RBC) [Entitic mass]MCH [Entitic mass] by Automated countLow 25.9-34.0[facility] Private HospitalMCHC Auto (RBC) [Mass/Vol]on 04-51-7913CLTX (RBC) [Mass/Vol]MCHC [Mass/volume] by Automated count29.9-35.2 [facility] HospitalMCV Auto (RBC) [Entitic vol]on 89-68-9274DOW (RBC) [Entitic vol]MCV [Entitic volume] by Automated count80.0-94.0[facility] HospitalNo Panel Informationon 77-81-0038Hnbeg Random Creatinine 77.97 mg/dL20.00-300.00[facility] HospitalFolate39.70 ng/mL 8.60-58.90[facility] HospitalPhosphorus Level3.4 mg/dL2.6-4.7 [facility] HospitalPlatelet mean volume Auto (Bld) [Entitic vol]on 18-97-5250Nowmncay mean volume (Bld) [Entitic vol]Platelet mean volume [Entitic volume] in Blood by Automated count9.5-13.5FBerger Hospital Platelets Auto (Bld) [#/Vol]on 76-12-1876Crhdljnxp (Bld) [#/Vol]Platelets [#/volume] in Blood by Automated jbres174-353BzujyuzfhKeenan Private Hospital RBC Auto (Bld) [#/Vol]on 12-84-4402BZF (Bld) [#/Vol]Erythrocytes [#/volume] in Blood by Automated countLow4.70-6.10[facility] Health Springfielderum or plasma anion gap determinationon 89-28-2452Dxmcn gap [Moles/Vol]Serum or plasma anion gap determinationKeenan Private HospitalUrine protein/creatinine ratioon 58-84-4945Bbwarde/Creatinine (U) [Ratio]Urine protein/creatinine ratio [facility] HospitalCreatinine (Bld) [Mass/Vol]Ordered By: Margarito Valentine on 54-18-7480Alajslaykr [Mass/Vol]Whole blood creatinine measurement High0.6-1.3FBerger HospitalComment on above:ER/ESD physician is notified/shown all ISTAT results.Critical values may be confirmed by laboratory testing ifdeemed necessary by ER attending doctor.INR in Platelet poor plasma by Coagulation assayOrdered By: Margarito Valentine on 29-36-0400TSY Coag (PPP) [Relative time]INR in Platelet poor plasma by Coagulation assayKeenan Private HospitalComment on above:INR Therapeutic Range A) Pre- [...] 4.5ISTAT XRay CREon 10-11-2024 Creatinine [Mass/Vol]2.1 mg/dLHigh0.6-1.3[facility] Physician GroupComment on above:Result Comment: ER/ESD physician is notified/shown all ISTAT results. Critical values may be confirmed by laboratory testing if deemed necessary by ER attending doctor.Performed By: #### ADDONUAPLUS, CUU #### [facility] [address] [place] [address] USAISTAT GFR31.235NormalThe [facility] Physician GroupComment on above:Result Comment: PERFORMED BY: [place] [address] PATHOLOGIST MANAGER [employer]ANCIAL SERVICES ED CRUZ M.D.Performed By: #### ADDMOEUAPLUS, CUU #### [facility] [address] [place] [address] USANo Panel InformationOrdered By: Margarito Valentine on 88-65-9432Hwotzxw Estimated GFR (eGFR)31.235[facility] Partial Thromboplastin Timeon 98-39-5905fHZQ Coag (Bld) [Time]36.8 sHigh 25.1-36.5The [facility] Physician GroupComment on above:Result Comment: A hematocrit value greater than 55% may lead to inaccurate results in coagulation testing. Patients having hematocrit values >55% require a special collection tube for coagulation studies. Please contact the laboratory at [phone] for redraw instructions. PERFORMED BY: [address] [address] PATHOLOGIST MANAGER [employer]ANCIAL SERVICES ED CRUZ M.D.Performed By: #### PTT, PT #### [address] [address] USAProthrombin Time INRon 06-36-5527OAF Coag (PPP) [Relative time]1.6 {INR}NormalThe [facility] Physician GroupComment on above:Result Comment: INR Therapeutic [...] - 4.5Performed By: #### PTT, PT #### [address] [address] USAPT Coag (PPP) [Time]17.9 sHigh9.0-12.9The [facility] Physician [facility] HospitalComment on above:Result Comment: A hematocrit value greater than 55% may lead to inaccurate results in coagulation testing. Patients having hematocrit values >55% require a special collection tube for coagulation studies. Please contact the laboratory at [phone] for redraw instructions.Performed By: #### PTT, PT #### [address] [address] USAProthrombin time (PT)Ordered By: Margarito Valentine on 78-12-7847KB Coag (PPP) [Time]Prothrombin time (PT)High9.0-12.9[facility] HospitalComment on above:A hematocrit value greater than 55% may lead to inaccurate results in coagulation testing. Patientshaving hematocrit values >55% require a special collection tube for coagulation studies. Please c ontact the laboratory at [phone] for redraw instructions.aPTT in Platelet poor plasma by Coagulation assayOrdered By: Margarito Valentine on 03-74-8968sQMB Coag (PPP) [Time]Activated partial thromboplastin time (aPTT) in platelet poor plasma by coagulation [facility]25.1-36.5FBerger HospitalComment on above:A hematocrit value greater than 55% may lead to inaccurate results in coagulation testing. Patientshaving hematocrit values >55% require a special collection tube for coagulation studies. Please contact the laboratory at [phone] for redraw instructions.Cult,Urineon 39-12-2997Jwsl,UrineSpecimen Description .CLEAN CATCH URINE Special Requests Site: Urine Culture ENTEROBACTER CLOACAE COMPLEX >100,000 CFU/ML Report Status FINAL 10/06/2024 SUSCEPTIBILITY Organism ENCLCX Method RITESH Gentamicin <=1 SUSCEPTIBLE Levofloxacin 1 INTERMEDIATE Nitrofurantoin 64 INTERMEDIATE Piperacillin/Tazobactam 64 INTERMEDIATE Tobramycin <=1 SUSCEPTIBLE Trimethoprim/Sulfa <=20 SUSCEPTIBLE SUSCEPTIBILITY Organism ENCLCX Method ROGERS CARRENO Ceftriaxone SUSCEPTIBLESusceptibleMercy Marietta Memorial HospitalComment on above: Performed By: #### OBS #### [facility] [address] [facility] [place] [address] Salon Sales Consultant: Milo Engle DOMHPT CULT,URINEon 43-84-0008Qxthlblftrhebg and review of laboratory resultsAbnormalFILLMORE COMMUNITY MEDICAL [facility]ENTER HealthcarePT CULT,URINESpecimen Description .CLEAN CATCH URINENOCO HealthcareMHPT CULT,URINESpecial Requests Site: UrineNOCO HealthcareMHPT CULT,URINECulture ENTEROBACTER CLOACAE COMPLEX >100,000 CFU/MLAbnormalFILLMORE COMMUNITY MEDICAL CENTER HealthcarePT CULT,URINEReport Status FINAL 10/06/2024NOCO HealthcareMHPT CULT,URINEMethod MICNOMS HealthcareMHPT CULT,URINE Gentamicin <=1 SUSCEPTIBLESusceptibleNOCO HealthcareMHPT CULT,URINELevofloxacin 1 INTERMEDIATEIntermediateNOMS HealthcareMHPT CULT,URINENitrofurantoin 64 INTERMEDIATEIntermediateNOMS HealthcareMHPT CULT,URINEPiperacillin/Tazobactam 64 INTERMEDIATEIntermediateNOMS HealthcareMHPT CULT,URINETobramycin <=1 SUSCEPTIBLESusceptibleNOMS HealthcareMHPT CULT,URINETrimethoprim/Sulfa <=20 SUSCEPTIBLESusceptibleNOMS HealthcareMHPT CULT,URINEMethod ROGERS CARRENO SusceptibleNOMS HealthcareMHPT CULT,URINECeftriaxone SUSCEPTIBLESusceptibleNOMS HealthcareOriginal Ordering Provider: WAQAR ADORNOISYNCNOCO HealthcareNo Panel Informationon 92-15-6577GHCF CULT,URINE SUSCEPTIBILITY SusceptibleNOMS HealthcareMHPT CULT,URINEOrganism ENCLCXSusceptibleNOMS HealthcareBasic Metab w/rfx MGon 26-35-5782Sukkz gap [Moles/Vol]9 mmol/LNormal 9-16[facility] HospitalComment on above:Performed By: #### OBS #### [facility] [place] [address] Salon Sales Consultant: Milo Engle DOCalcium [Mass/Vol]8.6 mg/dLNormal8.6-10.4 [facility] HospitalComharper university hospital on above:Performed By: #### OBS #### [facility] [address] [place] [address] Salon Sales Consultant: Milo Engle DOChloride [Moles/Vol]105 mmol/TOhouxy26-864 [facility] HospitalComment on above:Performed By: #### OBS #### [facility] [address] [place] [address] Salon Sales Consultant: Milo Engle DOCO2 [Moles/Vol]27 mmol/OWxnkei48-83XkntsLima Memorial HospitalComharper university hospital on above:Performed By: #### OBS #### [facility] [address] [place] [address] Salon Sales Consultant: Milo Engle DOCreatinine [Mass/Vol]1.9 mg/dLHigh0.7-1.2 [facility] HospitalComharper university hospital on above:Performed By: #### OBS #### [facility] [address] [place] [address] Salon Sales Consultant: Milo Engle, DOGFR/1.73 sq M.predicted among non-blacks MDRD (S/P/Bld) [Vol rate/Area]35 mL/min/{1.73_m2}Low>60[facility] Comment on above:Result Comment: These [...] secretion.Performed By: #### OBS #### [facility] [address] [place] [address] Salon Sales Consultant: Milo Engle DOGlucose [Mass/Vol]97 mg/vCQyrqad52-12MahlrMain Campus Medical CenterComment on above:Performed By: #### OBS #### [facility] [address] [place] [address] Salon Sales Consultant: Milo Engle DOPotassium [Moles/Vol]3.3 mmol/LLow3.7-5.3 [facility] HospitalComment on above:Performed By: #### OBS #### [facility] [address] [place] [address] Salon Sales Consultant: Milo Engle DOSodium [Moles/Vol]141 mmol/HVjacho222-406 [facility] HospitalComharper university hospital on above:Performed By: #### OBS #### [facility] [address] [place] [address] Salon Sales Consultant: Milo Engle DOUrea nitrogen [Mass/Vol]24 mg/dLHigh8-23[facility] HospitalComharper university hospital on above:Performed By: #### OBS #### [facility] [address] [place] [address] Salon Sales Consultant: Milo Engle DOBasic Metabolic Panel w/ Reflex to MGon 19-23-2873Qybqn gap [Moles/Vol]9 mmol/L9 - 16 mmol/LBon [facility] Calcium [Mass/Vol]8.6 mg/dL8.6 - 10.4 mg/dLBon [facility] HospitalChloride [Moles/Vol]105 mmol/L98 - 107 mmol/LBon [facility] HospitalCO2 [Moles/Vol]27 mmol/L20 - 31 mmol/LBon [facility] HospitalCreatinine [Mass/Vol]1.9 mg/dLHigh 0.7 - 1.2 mg/dLBon [facility] HospitalEst, Glom Filt Pcnd31Xoj- PINFBon [facility] HospitalComment on above: These results are not [...] secretion. Glucose [Mass/Vol]97 mg/dL74 - 99 mg/dLBon [facility] HospitalInterpretation and review of laboratory resultsAbnormalBon [facility] HospitalPotassium [Moles/Vol]3.3 mmol/LLow3.7 - 5.3 mmol/LBon [facility] HospitalSodium [Moles/Vol]141 mmol/L136 - 145 mmol/LBon [facility] HospitalUrea nitrogen [Mass/Vol]24 mg/dLHigh8 - 23 mg/dLBon [facility] CenterCBC with Auto Differentialon 46-94-9290Izsoymtnl (Bld) [#/Vol]0.05 10*3/uL [facility] HospitalBasophils/100 WBC (Bld)1 %0 - 2 %[facility] HospitalEosinophils (Bld) [#/Vol]0.2 10*3/uLDominion Hospital Eosinophils/100 WBC (Bld)4 %0 - 4 %[facility] DidLogErythrocyte distribution width (RBC) [Ratio]21.2 %High11.5 - 14.9 %[facility] Hematocrit (Bld) [Volume fraction]35.3 %Low41 - 53 %[facility] Hemoglobin (Bld) [Mass/Vol]11.5 g/dLLow13.5 - 17.5 g/dLBon [facility]Ch[facility] Immature granulocytes (Bld) [#/Vol]0 10*3/uLBon SecChillicothe VA Medical CenterImmature granulocytes/100 WBC (Bld)0 %0D[facility] HospitalInterpretation and review of laboratory resultsAbnormalBon [facility] HospitalLymphocytes/100 WBC (Bld)30 %24 - 44 %[facility] HospitalLymphocytes/100 WBC (Bld)1.53 %Bon [facility] HospitalMCH (RBC) [Entitic mass]24.8 pgLow26 - 34 pgDominion Hospital MCHC (RBC) [Mass/Vol]32.7 g/dL31 - 37 g/dLBon [facility] HospitalMCV (RBC) [Entitic vol]75.8 fLLow80 - 100 fLDominion HospitalMonocytes/100 WBC (Bld)7 %1 - 7 %[facility] HospitalMonocytes/100 WBC (Bld)0.36 %Bon [facility] HospitalMorphology Ian (Bld) [Interp]ANISOCYTOSIS PRESENTDominion HospitalMorphology Ian (Bld) [Interp]HYPOCHROMIA PRESENTDominion Hospital Morphology Ian (Bld) [Interp]FEW ELLIPTOCYTESDominion Hospital Neutrophils/100 WBC (Bld)58 %36 - 66 %[facility] HospitalPlatelet mean volume (Bld) [Entitic vol]8.1 fL6.0 - 12.0 fLBon SecWillis-Knight[facility] for [facility] HealthPlatelets (Bld) [#/Vol]173 10*3/uLBon SecChillicothe VA Medical CenterRBC (Bld) [#/Vol]4.65 10*6/uL4.5 - 5.9 m/uLBon [facility] HospitalSegmented neutrophils/100 WBC (Bld)2.96 %[facility] HospitalWBC other (Bld) [#/Vol]5.1Bon [facility]Nor[facility] with Diffon 67-10-3343Zrb. Basophil0.05 k/uLNormal 0.0-0.2Muniversity hospitals tri[facility] medical centery [facility] Memorial HospitalComment on above:Performed By: #### OBS #### [facility] [address] [place] [address] Salon Sales Consultant: Milo Engle DOAbs.Imm.Granulocyte0.00 k/uLNormal0.00-0.30 [facility] HospitalComment on above:Performed By: #### OBS #### [facility] [address] [place] [address] Salon Sales Consultant: Milo Engle DOAbs.Neutrophil (Seg)2.96 k/uLNormal1.3-9.1 [facility] HospitalComment on above:Performed By: #### OBS #### [facility] [address] [place] [address] Salon Sales Consultant: Milo Engle DOBasophils/100 WBC (Bld)1 %Normal0-2MMain Campus Medical CenterComment on above:Performed By: #### OBS #### [facility] [place] [address] Salon Sales Consultant: Milo Engle DOEosinophils (Bld) [#/Vol]0.20 10*3/uLNormal 0.0-0.4[facility] HospitalComharper university hospital on above:Performed By: #### OBS #### [facility] [place] [address] Salon Sales Consultant: Milo Engle DOEosinophils/100 WBC (Bld)4 %Normal0-4[facility] HospitalComharper university hospital on above:Performed By: #### OBS #### [facility] [address] [place] [address] Salon Sales Consultant: Milo Engle DOImmature granulocytes/100 WBC (Bld)0 %Normal0 [facility] on above:Performed By: #### OBS #### [facility] [place] [address] Salon Sales Consultant: Milo Engle DOLymphocytes (Bld) [#/Vol]1.53 10*3/uLNormal 1.0-4.8[facility] HospitalComharper university hospital on above:Performed By: #### OBS #### [facility] [place] [address] Salon Sales Consultant: Milo Engle DOLymphocytes/100 WBC (Bld)30 %Kyebzv18-25QjiglTrinity Health System [facility] on above:Performed By: #### OBS #### [facility] [address] [place] [address] Salon Sales Consultant: Milo Engle DOMonocytes (Bld) [#/Vol]0.36 10*3/uLNormal 0.1-1.3MMain Campus Medical CenterComharper university hospital on above:Performed By: #### OBS #### [facility] [address] [place] [address] Salon Sales Consultant: Milo Engle DOMonocytes/100 WBC (Bld)7 %Normal1-7[facility] on above:Performed By: #### OBS #### [facility] [address] [place] [address] Salon Sales Consultant: Milo Engle DOMorphology Ian (Bld) [Interp]ANISOCYTOSIS PRESENTNormalTrinity Health System [facility] on above:Result Comment: HYPOCHROMIA PRESENT FEW ELLIPTOCYTESPerformed By: #### OBS #### [facility] [address] [place] [address] Salon Sales Consultant: Milo Engle DONeutrophil (Seg)58 %Hbcsgf39-89SutlzLima Memorial HospitalComment on above:Performed By: #### OBS #### [facility] [address] [place] [address] Salon Sales Consultant: Milo Engle DOErythrocyte distribution width (RBC) [Ratio] 21.2 %High11.5-14.9[facility] HospitalComharper university hospital on above:Performed By: #### OBS #### [facility] [address] [place] [address] Salon Sales Consultant: Milo Engle DOHematocrit (Bld) [Volume fraction]35.3 %Low 41-53[facility] HospitalComharper university hospital on above:Performed By: #### OBS #### [address] [address] Salon Sales Consultant: Milo Engle DOHemoglobin (Bld) [Mass/Vol]11.5 g/dLLow 13.5-17.5[facility] HospitalComharper university hospital on above:Performed By: #### OBS #### [facility] [address] [place] [address] Salon Sales Consultant: Milo Engle DOMCH (RBC) [Entitic mass]24.8 efXsd80-20UoyrcLima Memorial HospitalComharper university hospital on above:Performed By: #### OBS #### [facility] [address] [place] [address] Salon Sales Consultant: Milo Engle DOMCHC (RBC) [Mass/Vol]32.7 g/fUQadjot49-35 [facility] on above:Performed By: #### OBS #### [facility] [address] [place] [address] Salon Sales Consultant: Milo Engle DOMCV (RBC) [Entitic vol]75.8 zDKht34-776SfvrzLima Memorial HospitalComment on above:Performed By: #### OBS #### [facility] [address] [facility] [place] [address] Salon Sales Consultant: Milo Engle DOPlatelet mean volume (Bld) [Entitic vol]8.1 fLNormal6.0-12.0[facility] HospitalComharper university hospital on above:Performed By: #### OBS #### [facility] [address] [place] [address] Salon Sales Consultant: Milo Engle DOPlatelets (Bld) [#/Vol]173 10*3/uLNormal 150-450[facility] HospitalComment on above:Performed By: #### OBS #### [facility] [address] [place] [address] Salon Sales Consultant: Milo Engle DORBC (Bld) [#/Vol]4.65 10*6/uLNormal4.5-5.9 [facility] HospitalComment on above:Performed By: #### OBS #### [facility] [facility] [place] [address] Salon Sales Consultant: Milo Engle DOWBC (Bld) [#/Vol]5.1 10*3/uLNormal3.5-11.0 [facility] on above:Performed By: #### OBS #### [facility] [place] [address] Salon Sales Consultant: Milo Engle DOEKG 12 LeadOrdered By: All Cornejo on 72-87-7693Xzwiek Rbwo38LBKAad [facility] Work Phone: p Puxo84thblgbhMlc [facility] Work Phone: p-R Leeudkel701 msBon [facility] Work Phone: [phone]-T Biandbfi084 [place] [employer] Phone: [phone] Wiwjvqdq089 msBon [employer] Phone: [phone] Calculation (Bazett)471 msBon [employer] Work Phone: [phone] [place]-16degreesBon [employer] Phone: [phone] Atwt182bkxshnhGmm [employer] Phone: [phone] Ddrq19FRRScn [employer] Phone: [phone] [employer] Phone: [phone] 12 Leadon 85-88-3551Wkrnv rhythm with 1st degree A-V block Incomplete left bundle branch block ST & T wave abnormality, consider anterior ischemia Abnormal ECG When compared with ECG of 04-Oct-2024 15:45, (unconfirmed) No significant change was foundINDIA[facility] All Mcintosh DO - 10/05/2024 Sinus rhythm with 1st degree A-V block Incomplete left bundle branch block ST & T wave abnormality, consider anterior ischemia Abnormal ECG When compared with ECG of 04-Oct-2024 15:45, (unconfirmed) No significant change was found [facility] Binding Cap.on 10-05-2024% Fe Ivinekphfh79 %Normal 20-55[facility] HospitalComharper university hospital on above:Performed By: #### OBS #### [facility] [address] [place] [address] Salon Sales Consultant: Milo Engle DOIron [Mass/Vol]103 ug/cVYbqzzu82-689TeokzLima Memorial HospitalComharper university hospital on above:Performed By: #### OBS #### [facility] [address] [place] [address] Salon Sales Consultant: Milo Engle DOTotal Fe Binding Rpc215 ug/aXExuxzp504-346 [facility] HospitalComment on above:Performed By: #### OBS #### [facility] [address] [place] [address] Salon Sales Consultant: Milo Engle DOUnbound Fe Bind Mhg538 ug/kNQztghp274-904 [facility] HospitalComharper university hospital on above:Performed By: #### OBS #### [facility] [address] [place] [address] Salon Sales Consultant: Milo Engle DOIron and TIBCon 42-28-6826Agzm [Mass/Vol]103 ug/dL61 - 157 ug/dLBon [facility] HospitalIron binding capacity [Mass/Vol]250 ug/dL250 - 450 ug/dLBon [facility] Hospitaln saturation [Mass fraction]41 % 20 - 55 %Bon [facility] HospitalUIBC147 ug/dL112 - 347 ug/dLBon [facility] CenterMagnesiumon 59-16-6536Qgjjvvydt [Mass/Vol]2.3 mg/dL1.6 - 2.4 mg/dLBon [facility] CenterMagnesium [Mass/Vol]2.3 mg/dLNormal1.6-2.4[facility] HospitalComharper university hospital on above: Performed By: #### OBS #### [facility] [place] [address] Salon Sales Consultant: Miol Engle DOPTon 65-96-0634TDV Coag (PPP) [Relative time] 2.0 {INR}NormalLima Memorial HospitalComharper university hospital on above:Result Comment: Therapeutic Range: Moderate Anticoagulant Intensity: INR = 2.0-3.0 High Anticoagulant Intensity: INR = 2.5-3.5Performed By: #### OBS #### [facility] [address] [place] [address] Salon Sales Consultant: Milo Engle DOPT Coag (PPP) [Time]24.9 sHigh11.8-14.6Mer[facility]arceloneta HospitalComment on above:Performed By: #### OBS #### [facility] [place] [address] Salon Sales Consultant: Milo Engle DOProtime-INRon 36-83-0207YAF Coag (PPP) [Relative time]2 {INR}[facility] on above: Therapeutic Range: Moderate Anticoagulant Intensity: INR = 2.0-3.0 High Anticoagulant Intensity: INR = 2.5-3.5 Interpretation and review of laboratory resultsAbnoCentra Southside Community Hospital PT Coag (PPP) [Time]24.9 sHighBon [facility] Basic Metab w/rfx MGon 96-66-1043Rdprl gap [Moles/Vol]8 mmol/LLow9-16[facility] HospitalComharper university hospital on above:Performed By: #### BMPX CDP, PT #### [facility] [address] [place] [address] Salon Sales Consultant: Milo Engle DOCalcium [Mass/Vol]8.7 mg/dLNormal8.6-10.4 [facility] on above:Performed By: #### BMPX, CDP, PT #### [facility] [address] [place] [address] Salon Sales Consultant: Milo Engle DOChloride [Moles/Vol]109 mmol/PNpnp62-031BppsyTrinity Health [facility] on above:Performed By: #### BMPX CDP, PT #### [facility] [address] [place] [address] Salon Sales Consultant: Milo Engle DOCO2 [Moles/Vol]27 mmol/AZkqicn53-72UylnrTrinity Health System [facility] on above:Performed By: #### BMPX, CDP, PT #### [facility] [address] [place] [address] Salon Sales Consultant: Milo Engle DOCreatinine [Mass/Vol]1.8 mg/dLHigh0.7-1.2 [facility] HospitalComment on above:Performed By: #### REIKA CDP, PT #### [facility] [address] [place] [address] Salon Sales Consultant: Milo Engle DOGFR/1.73 sq M.predicted among non-blacks MDRD (S/P/Bld) [Vol rate/Area]38 mL/min/{1.73_m2}Low>60[facility] Comment on above:Result Comment: These [...] #### MAGY JAMES, PT #### [facility] [address] [place] [address]. [place] [address] Salon Sales Consultant: Milo Engle DOGlucose [Mass/Vol]103 mg/cCDdpx20-09PgtnnMain Campus Medical CenterComment on above:Performed By: #### MAGY JAMES, PT #### [facility] [address] [place] [address]. [place] [address] Salon Sales Consultant: Milo Engle DOPotassium [Moles/Vol]3.8 mmol/LNormal3.7-5.3 [facility] HospitalComharper [facility] hospital on above:Performed By: #### EMILYX CDP, PT #### [facility]0 [facility] [place] [address] Salon Sales Consultant: Milo Engle, DOSodium [Moles/Vol]144 mmol/WCwsscc691-167 [facility] HospitalComhar[facility] on above:Performed By: #### MAGY JAMES, PT #### [facility] [address] [facility] [place] [address] Salon Sales Consultant: Milo Engle DOUrea nitrogen [Mass/Vol]22 mg/dLNormal8-23 [facility] HospitalComment on above:Performed By: #### ERIKA, MAGY, PT #### [facility] [address] [facility] [place] [address] Salon Sales Consultant: Milo Engle DOBasic Metabolic Panel w/ Reflex to MGon 50-14-8917Mbtyh gap [Moles/Vol]8 mmol/LLow9 - 16 mmol/LBon [facility] Calcium [Mass/Vol]8.7 mg/dL8.6 - 10.4 mg/dLBon [facility] HospitalChloride [Moles/Vol]109 mmol/LHigh98 - 107 mmol/LBon [facility] HospitalCO2 [Moles/Vol] 27 mmol/L20 - 31 mmol/LBon [facility] HospitalCreatinine [Mass/Vol]1.8 mg/dL High0.7 - 1.2 mg/dLBon [facility] HospitalEst, Glom Filt Tvhd58Ntu- PINFBon [facility] HospitalComment on above: These results are not [...] that affects renal tubular secretion. Glucose [Mass/Vol]103 mg/cISwos06 - 99 mg/dLBon [facility] Interpretation and review of laboratory resultsAbnormalBon [facility] Potassium [Moles/Vol]3.8 mmol/L3.7 - 5.3 mmol/LBon [facility] HospitalSodium [Moles/Vol]144 mmol/L136 - 145 mmol/LBon [facility] HospitalUrea nitrogen [Mass/Vol]22 mg/dL8 - 23 mg/dLBon [facility] Blood Occult Stool Screen #1on [id number], Stool #[id number] SecChillicothe VA Medical CenterHemoglobin.gastrointestinal spec 1 Ql (Stl)NegativeNEGATIVEBon [facility] Centerthelma St[facility] God HospitalTime, Stool #[id number] [facility]Nor[facility] SecChillicothe VA Medical CenterCBC with Auto Differentialon 27-23-9715Dhcuinzlj (Bld) [#/Vol]0.03 10*3/uLBon Secours St. John Of God HospitalBasophils/100 WBC (Bld)1 %0 - 2 %Bon [facility] Eosinophils (Bld) [#/Vol]0.29 10*3/uLBon Secours St. John Of God HospitalEosinophils/100 WBC (Bld)4 %0 - 4 %[address] [facility] [facility] John Of God HospitalErythrocyte distribution width (RBC) [Ratio]20 %High11.5 - 14.9 %Bon [facility] HospitalHematocrit (Bld) [Volume fraction]38.7 %Low41.0 - 53.0 %Bon [facility] HospitalHemoglobin (Bld) [Mass/Vol]11.2 g/dLLow13.5 - 17.5 g/dLBon Secours St. John Of God HospitalImmature granulocytes (Bld) [#/Vol][facility] HospitalImmature granulocytes/100 WBC (Bld)0 %0[facility] HealthInterpretation and review of laboratory results AbnormalBon SecChillicothe VA Medical CenterLymphocytes/100 WBC (Bld)17 %Low24 - 44 %Bon SecChillicothe VA Medical CenterLymphocytes/100 WBC (Bld)1.13 %Bon [facility] HospitalH (RBC) [Entitic mass]24 pgLow26.0 - 34.0 pgBon [facility]ville HospitalHC (RBC) [Mass/Vol]28.9 g/dLLow31.0 - 37.0 g/dLBon Secours [facility] So[facility] Medical CenterV (RBC) [Entitic vol]83 fL80.0 - 100.0 fLBon [facility] HealthMonocytes/100 WBC (Bld)15 %High 3 - 12 %[facility] HealthMonocytes/100 WBC (Bld)0.98 %[facility] God HospitalNeutrophils/100 WBC (Bld)63 %36 - 66 %[facility] HospitalNucleated RBC/100 WBC (Bld) [Ratio]0 %0 per 100 WBCDominion HospitalPlatelet mean volume (Bld) [Entitic vol]10.2 fL8.0 - 13.5 fLBon [facility] HospitalPlatelets (Bld) [#/Vol]195 10*3/uLBon [facility] HospitalRBC (Bld) [#/Vol]4.66 10*6/uL 4.21 - 5.77 m/uLBon [facility] HospitalSegmented neutrophils/100 WBC (Bld)4.2 % Dominion HospitalWBC other (Bld) [#/Vol]6.7Bon [facility] CenterCBC with Diffon 15-40-8664Mic. Basophil0.03 k/uLNormal 0.00-0.20[facility] HospitalComment on above:Performed By: #### MAGY JAMES, PT #### [facility] [address] [place] [address] Salon Sales Consultant: Milo Engle DOAbs.Imm.Granulocyte<0.59Xcptmb9.00-0.30[facility] HospitalComharper university hospital on above:Performed By: #### MAGY JAMES, PT #### [facility] [address] [place] [address] Salon Sales Consultant: Milo Engle DOAbs.Neutrophil (Seg)4.20 k/uLNormal1.50-8.10 [facility] HospitalComharper [facility] hospital on above:Performed By: #### MAGY JAMES, PT #### [facility] [address] [place] [address] Salon Sales Consultant: Milo Engle DOBasophils/100 WBC (Bld)1 %Normal0-2[facility] HospitalComment on above:Performed By: #### MAGY JAMES, PT #### [facility] [address] [place] [address] Salon Sales Consultant: Milo Engle DOEosinophils (Bld) [#/Vol]0.29 10*3/uLNormal 0.00-0.44[facility] on above:Performed By: #### MAGY JAMES, PT #### [facility] [place] [address] Salon Sales Consultant: Milo Engle DOEosinophils/100 WBC (Bld)4 %Normal0-4[facility] HospitalComharper university hospital on above:Performed By: #### MAGY JAMES, PT #### [facility] [address] [place] [address] Salon Sales Consultant: Milo Engle DOErythrocyte distribution width (RBC) [Ratio] 20.0 %High11.5-14.9[facility] on above:Performed By: #### MAGY JAMES, PT #### [facility] [address] [place] [address] Salon Sales Consultant: Milo Engle DOHematocrit (Bld) [Volume fraction]38.7 %Low 41.0-53.0[facility] on above:Performed By: #### MAGY JAMES, PT #### [facility] [address] [place] [address] Salon Sales Consultant: Milo Engle DOHemoglobin (Bld) [Mass/Vol]11.2 g/dLLow 13.5-17.5[facility] on above:Performed By: #### MAGY JAMES, PT #### [facility] [address] [place] [address] Salon Sales Consultant: Milo Engle DOImmature granulocytes/100 WBC (Bld)0 %Normal0 [facility] on above:Performed By: #### BMPX, CDP, PT #### [facility] [place] [address] Salon Sales Consultant: Milo Engle DOLymphocytes (Bld) [#/Vol]1.13 10*3/uLNormal 1.10-3.70[facility] HospitalComharper [facility] hospital on above:Performed By: #### MAGY JAMES, PT #### [facility] [place] [address] Salon Sales Consultant: Milo Engle DOLymphocytes/100 WBC (Bld)17 %Zkk76-84PzeonTrinity Health System [facility] on above:Performed By: #### MAGY JAMES, PT #### [facility] [address] [place] [address] Salon Sales Consultant: Milo Engle DOMCH (RBC) [Entitic mass]24.0 pgLow26.0-34.0 [facility] on above:Performed By: #### MAGY JAMES, PT #### [facility] [address] [place] [address] Salon Sales Consultant: Milo Engle DOMCHC (RBC) [Mass/Vol]28.9 g/dLLow31.0-37.0 [facility] on above:Performed By: #### MAGY JAMES, PT #### [facility] [address] [place] [address] Salon Sales Consultant: Milo Engle DOMCV (RBC) [Entitic vol]83.0 fLNormal 80.0-100.0[facility] on above:Performed By: #### MAGY JAMES, PT #### [facility] [address] [place] [address] Salon Sales Consultant: Milo Engle DOMonocytes (Bld) [#/Vol]0.98 10*3/uLNormal 0.10-1.20[facility] on above:Performed By: #### MAGY JAMES, PT #### [facility] [address] [facility] [place] [address] Salon Sales Consultant: Milo Engle DOMonocytes/100 WBC (Bld)15 %High3-12[facility] on above:Performed By: #### MAGY JAMES, PT #### [facility]0 [facility] [place] [address] Salon Sales Consultant: Milo Engle DONeutrophil (Seg)63 %Jowjop08-32WuspwTrinity Health System [facility] on above:Performed By: #### MAGY JAMES, PT #### [facility] [address] [place] [address]. [place] [address] Salon Sales Consultant: Milo Engle DONRBC Automated0.0 per 100 FXADmxckr0ImhlcLima Memorial HospitalComharper university hospital on above:Performed By: #### MAGY JAMES, PT #### [facility] [address] [place] [address]. [place] [address] Salon Sales Consultant: Milo Engle DOPlatelet mean volume (Bld) [Entitic vol]10.2 fLNormal8.0-13.5[facility] HospitalComharper [facility] hospital on above:Performed By: #### MAGY JAMES, PT #### [facility]0 [facility] [place] [address] Salon Sales Consultant: Milo Engle DOPlatelets (Bld) [#/Vol]195 10*3/uLNormal 150-450[facility] HospitalComharper [facility] hospital on above:Performed By: #### MAGY JAMES, PT #### [facility] [address] [place] [address] Salon Sales Consultant: Milo Engle DORBC (Bld) [#/Vol]4.66 10*6/uLNormal4.21-5.77 [facility] HospitalComment on above:Performed By: #### BMPX, MAGY, PT #### [facility]0 [facility] [place] [address] Salon Sales Consultant: Milo Engle DOWBC (Bld) [#/Vol]6.7 10*3/uLNormal3.5-11.0 [facility] HospitalComment on above:Performed By: #### EMILYX, MAGY, PT #### [facility] [place] [address] Salon Sales Consultant: Milo Engle DOMycoplasma Ab, IgMon 80-34-7553Qnkntxyqmv Ab, IgM0.11Normal<0.91[facility] HospitalComment on above:Result Comment: Reference Range: <=0.90 Negative 0.91-1.09 Equivocal >=1.10 PositivePerformed By: #### OBS #### [facility] [address] [place] [address] Salon Sales Consultant: Milo Engle DOMycoplasma Ab,IgMon 10-04-2024M. pneumoniae IgM IA Ql (S)0.11NINF - 0.91D[facility]ion HospitalComment on above: Reference Range: <=0.90 Negative 0.91-1.09 Equivocal >=1.10 Positive Dominion HospitalNo Panel InformationOrdered By: Alex Alcala on 77-12-0751Ksky surface area Derived from formula2.04 m2Bon [facility] Work Phone: bon [facility] Work Phone: No Panel Informationon 65-91-6286Wi evidence of deep vein or superficial vein [...] 1.293 cm.Color flow seen in residual lumen. Cardiac Cath Lab Technologist Details A pollard scale, color Doppler imaging and spectral Doppler analysis ultrasound was performed. During the study longitudinal and transverse views were obtained. Study was technically difficult due to: bedside exam, patient positioning and edema.[facility] CV CPACSRadiology Study observation (narrative)Bon [facility] HospitalOcc Bld, Fecal Scrnon 39-01-7134Tfxrem Blood 1NegativeNoSalem City HospitalComment on above:Performed By: #### OBS #### [facility] [address] [facility] [place] [address] Salon Sales Consultant: Milo Engle DOSpecimen 1 [id number] Memorial HospitalComharper university hospital on above:Performed By: #### OBS #### [facility] [address] [facility]. [place], [place] [id number] Salon Sales Consultant: Milo Engle DOSpecimen 1 Nocd7009UxnfjrWaahxTrinity Health [facility] on above:Performed By: #### OBS #### [facility] [address] [place] [address] Salon Sales Consultant: Milo Engle DOPTon [id number] Coag (PPP) [Relative time] 1.7 {INR}[facility] on above:Result Comment: Therapeutic Range: Moderate Anticoagulant Intensity: INR = 2.0-3.0 High Anticoagulant Intensity: INR = 2.5-3.5Performed By: #### BMPX, CDP, PT #### [facility] [address] [place] [address] Salon Sales Consultant: Milo Engle DOPT Coag (PPP) [Time]22.0 sHigh11.8-14.6MercBellevue HospitalComharper university hospital on above:Performed By: #### BMPX, CDP, PT #### [facility] [address] [place] [address] Salon Sales Consultant: Milo Engle DOProtime-INRon 45-26-9665IFM Coag (PPP) [Relative time]1.7 {INR}[facility] on above: Therapeutic Range: Moderate Anticoagulant Intensity: INR = 2.0-3.0 High Anticoagulant Intensity: INR = 2.5-3.5 Interpretation and review of laboratory resultsAbnoCentra Southside Community Hospital PT Coag (PPP) [Time]22.0 sHighBon [facility] B12/Folate Panelon 40-95-6887Qwdrg Acid28.5 ng/mLHigh4.8-24.2[facility] on above:Performed By: #### BMPX, CDP, PT #### [facility] [address] [place] [address] Salon Sales Consultant: Milo Engle DOCobalamin (Vitamin B12) [Mass/Vol]377 pg/mL Qukwuk265-6807QtzrnLima Memorial HospitalComment on above:Performed By: #### MAGY JAMES, PT #### [facility] [place] [address] Salon Sales Consultant: Milo Engle DOBasic Metab w/rfx MGon 68-31-7134Zxlfy gap [Moles/Vol]8 mmol/LLow9-16[facility] HospitalComharper [facility] hospital on above:Performed By: #### MAGY JAMES, PT #### [facility] [address] [place] [address] Salon Sales Consultant: Milo Engle DOCalcium [Mass/Vol]8.3 mg/dLLow8.6-10.4[facility] HospitalComharper [facility] hospital on above:Performed By: #### MAGY JAMES, PT #### [facility] [address] [place] [address] Salon Sales Consultant: Milo Engle DOChloride [Moles/Vol]110 mmol/YBhch56-418QhsqxLima Memorial HospitalComharper university hospital on above:Performed By: #### MAGY JAMES, PT #### [facility] [address] [place] [address] Salon Sales Consultant: Milo Engle DOCO2 [Moles/Vol]24 mmol/ZMlkzuh26-66TrtdbLima Memorial HospitalComharper university hospital on above:Performed By: #### MAGY JAMES, PT #### [facility] [address] [place] [address] Salon Sales Consultant: Milo Engle DOCreatinine [Mass/Vol]1.7 mg/dLHigh0.7-1.2 [facility]Com[facility] on above:Performed By: #### MAGY JAMES, PT #### [facility] [address] [place] [address] Salon Sales Consultant: Milo Engle, DOGFR/1.73 sq M.predicted among non-blacks MDRD (S/P/Bld) [Vol rate/Area]40 mL/min/{1.73_m2}Low>60[facility] Comment on above:Result Comment: These [...] #### MAGY JAMES, PT #### [facility] [address] [place] [address] Salon Sales Consultant: Milo Engle DOGlucose [Mass/Vol]98 mg/iRHwyjkg34-03MkybeMain Campus Medical CenterComment on above:Performed By: #### MAGY JAMES, PT #### [facility] [address] [place] [address]. [place] [address] Salon Sales Consultant: Milo Engle DOPotassium [Moles/Vol]3.3 mmol/LLow3.7-5.3 [facility] HospitalComharper [facility] hospital on above:Performed By: #### MAGY JAMES, PT #### [facility] [address] [place] [address]. [place] [address] Salon Sales Consultant: Milo Engle DOSodium [Moles/Vol]142 mmol/RXcqzem413-883 [facility] HospitalComharper [facility] hospital on above:Performed By: #### MAGY JAMES, PT #### [facility] [address] [place] [address] Salon Sales Consultant: Milo Engle DOUrea nitrogen [Mass/Vol]24 mg/dLHigh8-23[facility] HospitalComment on above:Performed By: #### MAGY JAMES, PT #### [facility] [address] [place] [address] Salon Sales Consultant: Milo Engle DOBasic Metabolic Panel w/ Reflex to MGon 22-23-7269Ygqra gap [Moles/Vol]8 mmol/LLow9 - 16 mmol/LBon SecSt. Elizabeth HospitalInvo Bioscience Health Calcium [Mass/Vol]8.3 mg/dLLow8.6 - 10.4 mg/dLBon Secours ISI Technologyy HealthChloride [Moles/Vol]110 mmol/LHigh98 - 107 mmol/LBon [address] Francis HospitalInvo Bioscience HealthCO2 [Moles/Vol] 24 mmol/L20 - 31 mmol/LBon Secours IS[facility] Technologyy HealthCreatinine [Mass/Vol]1.7 mg/dL High0.7 - 1.2 mg/dLBon Secours [facility] HealthEst, Glom Filt Yodd74Tuz- PINFBon SecSt. Elizabeth HospitalInvo Bioscience [facility] Va Medical CenterComment on above: These results are not intended [...] secretion. Glucose [Mass/Vol]98 mg/dL74 - 99 mg/dLBon HarriInterpretation and review of laboratory resultsAbnormalBon [facility] Medical CenterKonjekt [facility] Medical CenterPotassium [Moles/Vol]3.3 mmol/LLow3.7 - 5.3 mmol/LBon SecKonjekt Cincinnati Va Medical CenterSodium [Moles/Vol]142 mmol/L136 - 145 mmol/LBon SecKonjekt HealthUrea nitrogen [Mass/Vol]24 mg/dLHigh8 - 23 mg/dLBon Sec[address] St[address] Francis Hospitaly [facility] Medical CenterBon SecChillicothe VA Medical CenterCBC with Auto Differentialon 46-03-3287Zergbbaat (Bld) [#/Vol]0.06 10*3/uL Bon SecPaybubbley DidLogBasophils/100 WBC (Bld)1 %0 - 2 %[facility] IS[facility] Technologyy [facility] Medical CenterEosinophils (Bld) [#/Vol]0.29 10*3/uLBon [facility] Eosinophils/100 WBC (Bld)5 %High0 - 4 %Dominion HospitalErythrocyte distribution width (RBC) [Ratio]20.2 %High11.5 - 14.9 %[facility] Hematocrit (Bld) [Volume fraction]33.1 %Low41.0 - 53.0 %[facility] Hemoglobin (Bld) [Mass/Vol]9.9 g/dLLow13.5 - 17.5 g/dLBon [facility] Immature granulocytes (Bld) [#/Vol]0 10*3/uLBon [facility] HospitalImmature granulocytes/100 WBC (Bld)0 %0Dominion HospitalInterpretation and review of laboratory resultsAbnormalDominion HospitalLymphocytes/100 WBC (Bld)22 %Low24 - 44 %D[facility]ion HospitalLymphocytes/100 WBC (Bld)1.28 %[place] HealthH (RBC) [Entitic mass]24.3 pgLow26.0 - 34.0 pgDominion HospitalMCHC (RBC) [Mass/Vol]29.9 g/dLLow31.0 - 37.0 g/dLBon [facility] MCV (RBC) [Entitic vol]81.3 fL80.0 - 100.0 fLDominion Hospital Monocytes/100 WBC (Bld)13 %High3 - 12 %Dominion HospitalMonocytes/100 WBC (Bld)0.75 %[facility]ion HospitalMorphology Ian (Bld) [Interp]ANISOCYTOSIS PRESENTDominion HospitalMorphology Ian (Bld) [Interp]1+ ECHINOCYTESDominion HospitalMorphology Ian (Bld) [Interp]1+ ELLIPTOCYTESDominion HospitalNeutrophils/100 WBC (Bld)59 %36 - 66 %[facility] Nucleated RBC/100 WBC (Bld) [Ratio]0 %0 per 100 WBCDominion Hospital Platelet mean volume (Bld) [Entitic vol]9.6 fL8.0 - 13.5 fLDominion HospitalPlatelets (Bld) [#/Vol]165 10*3/uLBon [facility] HospitalRBC (Bld) [#/Vol]4.07 10*6/uLLow4.21 - 5.77 m/uLDominion HospitalSegmented neutrophils/100 WBC (Bld)3.42 %Bon [facility] HospitalWBC other (Bld) [#/Vol] 5.8Bon [facility] CenterCBC with Diffon 10-03-2024 Abs. Basophil0.06 k/uLNormal0.00-0.20[facility] HospitalComment on above: Performed By: #### MAGY JAMES, PT #### [facility] [address] [place] [address] Salon Sales Consultant: Milo Engle DOAbs.Imm.Granulocyte0.00 k/uLNormal0.00-0.30 [facility] HospitalComharper [facility] on above:Performed By: #### MAGY JAMES, PT #### [facility] [place] [address] Salon Sales Consultant: Milo Engle DOAbs.Neutrophil (Seg)3.42 k/uLNormal1.50-8.10 [facility] on above:Performed By: #### MAGY JAMES, PT #### [facility] [address] [place] [address] Salon Sales Consultant: Milo Engle DOBasophils/100 WBC (Bld)1 %Normal0-2MercBellevue HospitalComharper university hospital on above:Performed By: #### MAGY JAMES, PT #### [facility] [address] [place] [address] Salon Sales Consultant: Milo Engle DOEosinophils (Bld) [#/Vol]0.29 10*3/uLNormal 0.00-0.44[facility] on above:Performed By: #### BMPX, CDP, PT #### [facility] [address] [place] [address] Salon Sales Consultant: Milo Engle DOEosinophils/100 WBC (Bld)5 %High0-4[facility] HospitalComharper university hospital on above:Performed By: #### ERIKA, MAGY, PT #### [facility] [place] [address] Salon Sales Consultant: Milo Engle DOImmature granulocytes/100 WBC (Bld)0 %Normal0 [facility] on above:Performed By: #### MAGY JAMES, PT #### [facility] [address] [place] [address] Salon Sales Consultant: Milo Engle DOLymphocytes (Bld) [#/Vol]1.28 10*3/uLNormal 1.10-3.70[facility] HospitalComharper [facility] hospital on above:Performed By: #### MAGY JAMES, PT #### [facility] [place] [address] Salon Sales Consultant: Milo Engle DOLymphocytes/100 WBC (Bld)22 %Ypl12-35CukmqLima Memorial HospitalComharper university hospital on above:Performed By: #### MAGY JAMES, PT #### [facility] [place] [address] Salon Sales Consultant: Milo Engle DOMonocytes (Bld) [#/Vol]0.75 10*3/uLNormal 0.10-1.20[facility] on above:Performed By: #### MAGY JAMES, PT #### [facility] [address] [place] [address] Salon Sales Consultant: Milo Engle DOMonocytes/100 WBC (Bld)13 %High3-12[facility] on above:Performed By: #### MAGY JAMES, PT #### [facility] [address] [place] [address] Salon Sales Consultant: Milo Engle DOMorphology Ian (Bld) [Interp]ANISOCYTOSIS PRESENTNormalLima Memorial HospitalComharper university hospital on above:Result Comment: 1+ ECHINOCYTES 1+ ELLIPTOCYTESPerformed By: #### MAGY JAMES, PT #### [address] [address] Salon Sales Consultant: Milo Engle DONeutrophil (Seg)59 %Hbmism59-03WsiywLima Memorial HospitalComharper university hospital on above:Performed By: #### MAGY JAMES, PT #### [facility] [address] [place] [address] Salon Sales Consultant: Milo Engle DOErythrocyte distribution width (RBC) [Ratio] 20.2 %High11.5-14.9[facility] on above:Performed By: #### MAGY JAMES, PT #### [address] [address] Salon Sales Consultant: Milo Engle DOHematocrit (Bld) [Volume fraction]33.1 %Low 41.0-53.0[facility] on above:Performed By: #### MAGY JAMES, PT #### [facility] [address] [place] [address] Salon Sales Consultant: Milo Engle DOHemoglobin (Bld) [Mass/Vol]9.9 g/dLLow 13.5-17.5[facility] on above:Performed By: #### MAGY JAMES, PT #### [facility] [address] [place], [place] [address] [address] Salon Sales Consultant: Milo Engle DOMCH (RBC) [Entitic mass]24.3 pgLow26.0-34.0 [facility] on above:Performed By: #### MAGY JAMES, PT #### [facility]0 [facility] [place] [address] Salon Sales Consultant: Milo Engle DOMCHC (RBC) [Mass/Vol]29.9 g/dLLow31.0-37.0 [facility] on above:Performed By: #### MAGY JAMES, PT #### [facility] [address] [place] [address]. [place] [address] Salon Sales Consultant: Milo Engle DOMCV (RBC) [Entitic vol]81.3 fLNormal 80.0-100.0[facility] on above:Performed By: #### MAGY JAMES, PT #### [facility] [address] [place] [address] Salon Sales Consultant: Milo Engle DONRBC Automated0.0 per 100 IQOJgghcj1IxoxpTrinity [facility] System [facility] on above:Performed By: #### MAGY JAMES, PT #### [facility] [address] [place] [address]. [place] [address] Salon Sales Consultant: Milo Engle DOPlatelet mean volume (Bld) [Entitic vol]9.6 fLNormal8.0-13.5[facility] on above:Performed By: #### MAGY JAMES, PT #### [facility] [address] [place] [address] Salon Sales Consultant: Milo Engle DOPlatelets (Bld) [#/Vol]165 10*3/uLNormal 150-450[facility] on above:Performed By: #### MAGY JAMES, PT #### [facility] [address] [facility] [place] [address] Salon Sales Consultant: Milo Engle DORBC (Bld) [#/Vol]4.07 10*6/uLLow4.21-5.77 [facility] on above:Performed By: #### MAGY JAMES, PT #### [facility] [address] [place] [address] Salon Sales Consultant: Milo Engle DOWBC (Bld) [#/Vol]5.8 10*3/uLNormal3.5-11.0 [facility] on above:Performed By: #### MAGY JAMES, PT #### [facility] [address] [place] [address]. [place] [address] Salon Sales Consultant: Milo Engle DOFerritinon [id number] [Mass/Vol]54 ng/mLNormalBon [facility] on above:No reference range established for this age/gender.Result Comment: No reference range established for this age/gender.Performed By: #### MAGY JAMES, PT #### [facility] [address] [place] [address]. [place] [address] Salon Sales Consultant: Milo Engle DOHaptoglobinon 87-93-4340Rjrhabziyfw [Mass/Vol]244 mg/dXUdol85 - 200 mg/dLBon [facility] Memorial HospitalHaptoglobin244 mg/mFCnlp25-437HxbfuTrinity Health System [facility] on above:Performed By: #### MAGY JAMES, PT #### [facility] [place] [address] Salon Sales Consultant: Milo Engle Austin Binding Cap.on 37-01-4458Auqj [Mass/Vol] 18 ug/nEWib60-128[facility] on above:Performed By: #### MAGY JAMES, PT #### [facility] [address] [facility] [place] [address] Salon Sales Consultant: Milo Engle DO% Fe Saturation8 %Qxh20-84OuorkGeorgetown Behavioral Hospital on above:Performed By: #### MAGY JAMES, PT #### [facility] [address] [facility] [place] [address] Salon Sales Consultant: Milo Engle, DOTotal Fe Binding Ffu090 ug/aSKry486-482TkilqTrinity Health System [facility] on above:Performed By: #### MAGY JAMES, PT #### [facility] [address] [facility] [place] [address] Salon Sales Consultant: Milo Engle DOUnbound Fe Bind Cbv764 ug/zHKgnzgz608-165 [facility] on above:Performed By: #### MAGY JAMES, PT #### [facility] [address] [place] [address] Salon Sales Consultant: Milo Engle DOIron and TIBCon 67-04-4977Lomm binding capacity [Mass/Vol]235 ug/yMVsj937 - 450 ug/dLBon [facility] Memorial HospitalIron saturation [Mass fraction]8 %Low20 - 55 %Dominion HospitalUIBC217 ug/dL 112 - 347 ug/dLBon [facility] Memorial HospitalLEGIONELLA ANTIGEN, URINEon 10-03-2024L. pneumophila 1 Ag IA.rapid Ql (U)NegativeNEGATIVEBon [facility] on above:L. pneumophila serogroup 1 antigen not detected. A negative result does not exclude infection with Leginella pnemophila serogroup 1 nor does it rule out other microbial-caused respiratory infections of disease caused by other serogroups of Legionella pneumophila. Dominion HospitalLactate Dehydrogenaseon 38-92-5736Tjdzfgmheljurd and review of laboratory resultsAbnormalBon [facility]ours Mercy HealthLDH [Catalytic activity/Vol]132 U/YXyl631 - 225 U/LBon [facility] CenterLDH [Catalytic activity/Vol]132 U/NHne519-386XpbvlLima Memorial Hospital Comment on above:Performed By: #### BMPX, CDP, PT #### [facility] [address] [facility] [place] [address] Salon Sales Consultant: Milo Engle DOLegionella Ag, Uron 67-85-5416Atdtydeyjq Ag, UrNegativeNormalNEGLima Memorial HospitalComment on above:Result Comment: L. pneumophila serogroup 1 antigen not detected. A negative result does not exclude infection with Leginella pnemophila serogroup 1 nor does it rule out other microbial-caused respiratory infections of disease caused by other serogroups of Legionella pneumophila.Performed By: #### OBS #### [facility] [address] [facility] [place] [address] Salon Sales Consultant: Milo Engle DOMRSA DNA Probe, Nasalon 55-90-6385Cxrbrjud Description.NASAL SWABBon [facility] Medical CenterMRSA, DNA, Nasalon [id number], DNA, NasalNegativeBluff CityNEGDominion Hospital Comment on above:NEGATIVE: MRSA DNA not [...] Performed By: #### OBS #### [facility] [address] [facility] [place] [address] Salon Sales Consultant: Milo Engle DOMagnesiumon 66-11-5919Ejdesywlg [Mass/Vol]2.2 mg/dL1.6 - 2.4 mg/dLBon [facility] Medical CenterMagnesium [Mass/Vol]2.2 mg/dLNormal1.6-2.4[facility] on above: Performed By: #### BMPX, CDP, PT #### [facility] [address] [place] [address] Salon Sales Consultant: Milo Engle DONo Panel Informationon 10-03-2024 Interpretation and review of laboratory resultsAbnoRegional Health Rapid City Hospital 25-31-1940SZN Coag (PPP) [Relative time]1.7 {INR} NormalTrinity Health [facility] on above:Result Comment: Therapeutic Range: Moderate Anticoagulant Intensity: INR = 2.0-3.0 High Anticoagulant Intensity: INR = 2.5-3.5Performed By: #### BMPX, CDP, PT #### [facility] [address] [place] [address] Salon Sales Consultant: Milo Engle DOPT Coag (PPP) [Time]22.0 sHigh11.8-14.6MSelect Medical [facility]Health [facility] on above:Performed By: #### BMPX, CDP, PT #### [facility] [address] [place] [address] Salon Sales Consultant: Milo Engle DOProtime-INRon 08-71-6415RZQ Coag (PPP) [Relative time]1.7 {INR}[facility] on above: Therapeutic Range: Moderate Anticoagulant Intensity: INR = 2.0-3.0 High Anticoagulant Intensity: INR = 2.5-3.5 Interpretation and review of laboratory resultsAbCentra Bedford Memorial Hospital PT Coag (PPP) [Time]22.0 sHighBon [facility] Retic Counton [id number] Retic0.038 M/uLNormal0.030-0.080[facility] on above:Performed By: #### BMPX, CDP, PT #### [facility] [address] [facility] [place] [address] Salon Sales Consultant: Milo Engle DOIRF11.9 %Normal2.7-18.3[facility] on above:Performed By: #### BMPX, CDP, PT #### [facility] [address] [facility] [place] [address] Salon Sales Consultant: Milo Engle DORetic Count0.9 %Normal0.5-2.5[facility] on above:Performed By: #### BMPX, CDP, PT #### [facility] [address] [facility] [place] [address] Salon Sales Consultant: Milo Engle DORetic Wzklzyhnjd80.4 pgLow28.2-35.7[facility] on above:Performed By: #### BMPX, CDP, PT #### [facility] [address] [facility] [place] [address] Salon Sales Consultant: Milo Engle DOReticulocyteson 63-91-3991Yufwajhp reticulocytes/Total reticulocytes (Bld)11.9 %2.7 - 18.3 %Dominion HospitalInterpretation and review of laboratory resultsAbnormalDominion HospitalRetic Bytdojotxu68.4 pgLow28.2 - 35.7 pgDominion Hospital Reticulocytes (Bld) [#/Vol]0.038 10*3/uLDominion Hospital Reticulocytes/100 RBC (Bld)0.9 %0.5 - 2.5 %Mary Washington HospitalVitamin B12 & Folateon 23-54-9059Fbyrgyvll (Vitamin B12) [Mass/Vol] 377 pg/mL232 - 1245 pg/mLDominion HospitalFolate [Mass/Vol]28.5 ng/mLHigh 4.8 - 24.2 ng/mLBon [facility] HospitalInterpretation and review of laboratory resultsAbnormalMary Washington HospitalBasic Metabolic Panelon 20-45-7507Bvued gap [Moles/Vol]11 mmol/L9 - 16 mmol/LBon [facility] HospitalCalcium [Mass/Vol]8.8 mg/dL8.6 - 10.4 mg/dLBon [facility] Chloride [Moles/Vol]106 mmol/L98 - 107 mmol/LBon [facility] HospitalCO2 [Moles/Vol]24 mmol/L20 - 31 mmol/LBon [facility] HospitalCreatinine [Mass/Vol] 1.9 mg/dLHigh0.7 - 1.2 mg/dLBon [facility] HospitalEst, Glom Filt Mcgr00Lre- PINFBon [facility] HospitalComment on above: These results are not [...] that affects renal tubular secretion. Glucose [Mass/Vol]105 mg/nSUvvn37 - 99 mg/dLBon [facility] Interpretation and review of laboratory resultsAbnoCentra Southside Community Hospital Potassium [Moles/Vol]3.8 mmol/L3.7 - 5.3 mmol/LBon [facility] HospitalSodium [Moles/Vol]141 mmol/L136 - 145 mmol/LBon [facility] HospitalUrea nitrogen [Mass/Vol]22 mg/dL8 - 23 mg/dLBon [facility] Ohiosic Metabolic Profon 93-06-0247Mhnog gap [Moles/Vol]11 mmol/LNormal9-16[facility] Comment on above:Performed By: #### CDP, BMP, PT, TSHX #### [facility] [address] [place] [address] Salon Sales Consultant: Milo Engle DOCalcium [Mass/Vol]8.8 mg/dLNormal8.6-10.4 [facility] HospitalComment on above:Performed By: #### CDP, BMP, PT, TSHX #### [facility] [address] [facility] [place] [address] Salon Sales Consultant: Milo Engle DOChloride [Moles/Vol]106 mmol/UTdowit65-899 [facility] HospitalComment on above:Performed By: #### CDP, BMP, PT, TSHX #### [facility] [address] [facility] [place] [address] Salon Sales Consultant: Milo Engle DOCO2 [Moles/Vol]24 mmol/ONfdvtp03-88StwcjLima Memorial HospitalComment on above:Performed By: #### CDP, BMP, PT, TSHX #### [facility] [facility] [place] [address] Salon Sales Consultant: Milo Engle DOCreatinine [Mass/Vol]1.9 mg/dLHigh0.7-1.2 [facility] HospitalComment on above:Performed By: #### MAGY, BMP, PT, TSHX #### [facility] [address] [facility] [place] [address] Salon Sales Consultant: Milo Engle DOGFR/1.73 sq M.predicted among non-blacks MDRD (S/P/Bld) [Vol rate/Area]35 mL/min/{1.73_m2}Low>60[facility] Comment on above:Result Comment: These [...] CDP, BMP, PT, TSHX #### [facility] [address] [facility] [place] [address] Salon Sales Consultant: Milo Engle, DOGlucose [Mass/Vol]105 mg/jDXkcb28-50WratgMain Campus Medical CenterComharper university hospital on above:Performed By: #### CDP, BMP, PT, TSHX #### [facility] [address] [place] [address] Salon Sales Consultant: Milo Engle, DOPotassium [Moles/Vol]3.8 mmol/LNormal3.7-5.3 [facility] HospitalComharper university hospital on above:Performed By: #### CDP, BMP, PT, TSHX #### [facility] [place] [address] Salon Sales Consultant: Milo Engle, DOSodium [Moles/Vol]141 mmol/TBmrlgo829-639 [facility] HospitalComharper university hospital on above:Performed By: #### CDP, BMP, PT, TSHX #### [facility] [address] [place] [address] Salon Sales Consultant: Milo Engle DOUrea nitrogen [Mass/Vol]22 mg/dLNormal8-23 [facility] HospitalComharper university hospital on above:Performed By: #### CDP, BMP, PT, TSHX #### [facility] [address] [place] [address] Salon Sales Consultant: Milo Engle, DOCBC with Auto Differentialon 10-02-2024 Basophils (Bld) [#/Vol]0 10*3/uLBon Secours St. John Of God HospitalBasophils/100 WBC (Bld)0 %0 - 2 %[facility] HospitalEosinophils (Bld) [#/Vol]0.07 10*3/uLBon Secours St. John Of God HospitalEosinophils/100 WBC (Bld)1 %0 - 4 %[facility] Erythrocyte distribution width (RBC) [Ratio]20.6 %High11.5 - 14.9 %Bon [facility] Memorial HospitalHematocrit (Bld) [Volume fraction]38.8 %Low41.0 - 53.0 %[facility] God HospitalHemoglobin (Bld) [Mass/Vol]11 g/dLLow13.5 - 17.5 g/dLBon [address]. John Of God HospitalImmature granulocytes (Bld) [#/Vol]0.07 10*3/uLBon Secours St. [facility] Of [facility] HospitalImmature granulocytes/100 WBC (Bld)1 %Kmuv5Wpm [facility] Interpretation and review of laboratory resultsAbnormalBon SecWillis-[facility] Health Lymphocytes/100 WBC (Bld)13 %Low24 - 44 %[facility] HospitalLymphocytes/100 WBC (Bld)0.95 %LowBon SecWooster Community HospitalH (RBC) [Entitic mass]24.3 pgLow 26.0 - 34.0 pgBon SecWooster Community HospitalHC (RBC) [Mass/Vol]28.4 g/dLLow31.0 - 37.0 g/dLBon SecWooster Community HospitalV (RBC) [Entitic vol]85.7 fL80.0 - 100.0 fL Bon SecWill[facility] HealthMonocytes/100 WBC (Bld)14 %High3 - 12 %[facility] HospitalMonocytes/100 WBC (Bld)1.02 %[facility] HealthMorphology Ian (Bld) [Interp]ANISOCYTOSIS PRESENTBon SecChillicothe VA Medical CenterMorphology Ian (Bld) [Interp]1+ ELLIPTOCYTESBon SecChillicothe VA Medical CenterMorphology Ian (Bld) [Interp]1+ ECHINOCYTESBon SecChillicothe VA Medical CenterNeutrophils/100 WBC (Bld)71 %High36 - 66 %Dominion HospitalNucleated RBC/100 WBC (Bld) [Ratio]0 %0 per 100 WBCBon [facility] Memorial HospitalPlatelet mean volume (Bld) [Entitic vol]10 fL8.0 - 13.5 fL Bon SecWill[facility] HealthPlatelets (Bld) [#/Vol]245 10*3/uLBon [facility] HealthRBC (Bld) [#/Vol]4.53 10*6/uL4.21 - 5.77 m/uLBon [facility] Segmented neutrophils/100 WBC (Bld)5.19 %Bon [facility] HospitalWBC other (Bld) [#/Vol]7.3Bon [facility] HospitalBon [facility] HospitalCBC with Diffon 23-74-4381Hfh. Basophil0.00 k/uLNormal0.00-0.20[facility] HospitalComment on above:Performed By: #### CDP, BMP, PT, TSHX #### [facility] [address] [facility] [place] [address] Salon Sales Consultant: Milo Engle DOAbs.Imm.Granulocyte0.07 k/uLNormal0.00-0.30 [facility] HospitalComharper university hospital on above:Performed By: #### CDP, BMP, PT, TSHX #### [facility] [address] [place] [address]. [place] [address] Salon Sales Consultant: Milo Engle DOAbs.Neutrophil (Seg)5.19 k/uLNormal1.50-8.10 [facility] HospitalComharper university hospital on above:Performed By: #### CDP, BMP, PT, TSHX #### [facility] [address] [place] [address]. [place] [address] Salon Sales Consultant: Milo Engle DOBasophils/100 WBC (Bld)0 %Normal0-2MMain Campus Medical CenterComharper university hospital on above:Performed By: #### CDP, BMP, PT, TSHX #### [facility] [address] [place] [address] Salon Sales Consultant: Milo Engle DOEosinophils (Bld) [#/Vol]0.07 10*3/uLNormal 0.00-0.44[facility] HospitalComharper university hospital on above:Performed By: #### CDP, BMP, PT, TSHX #### [facility] [address] [facility] [place] [address] Salon Sales Consultant: Milo Engle DOEosinophils/100 WBC (Bld)1 %Normal0-4[facility] on above:Performed By: #### CDP, BMP, PT, TSHX #### [facility] [place] [address] Salon Sales Consultant: Milo Engle DOImmature granulocytes/100 WBC (Bld)1 %High0 [facility] on above:Performed By: #### CDP, BMP, PT, TSHX #### [facility] [address] [place] [address]. [place] [address] Salon Sales Consultant: Milo Engle DOLymphocytes (Bld) [#/Vol]0.95 10*3/uLLow 1.10-3.70[facility] on above:Performed By: #### CDP, BMP, PT, TSHX #### [facility] [address] [place] [address] Salon Sales Consultant: Milo Engle DOLymphocytes/100 WBC (Bld)13 %Qvt20-55RyetcTrinity Health System [facility] on above:Performed By: #### CDP, BMP, PT, TSHX #### [facility] [address] [place] [address]. [place] [address] Salon Sales Consultant: Milo Engle DOMonocytes (Bld) [#/Vol]1.02 10*3/uLNormal 0.10-1.20[facility] on above:Performed By: #### CDP, BMP, PT, TSHX #### [facility] [address] [place] [address] Salon Sales Consultant: Milo Engle DOMonocytes/100 WBC (Bld)14 %High3-12Mer[facility] Barceloneta HospitalComment on above:Performed By: #### CDP, BMP, PT, TSHX #### [facility] [place] [address] Salon Sales Consultant: Milo Engle DOMorphology Ian (Bld) [Interp]ANISOCYTOSIS PRESENTNormalTr[facility] on above:Result Comment: 1+ ELLIPTOCYTES 1+ ECHINOCYTESPerformed By: #### CDP, BMP, PT, TSHX #### [facility] [address] [place] [address] Salon Sales Consultant: Milo Engle DONeutrophil (Seg)71 %Bull25-02ZxhdbTrinity Health System [facility] on above:Performed By: #### CDP, BMP, PT, TSHX #### [facility] [address] [place] [address] Salon Sales Consultant: Milo Engle DOErythrocyte distribution width (RBC) [Ratio] 20.6 %High11.5-14.9[facility] on above:Performed By: #### CDP, BMP, PT, TSHX #### [facility] [address] [place] [address] Salon Sales Consultant: Milo Engle DOHematocrit (Bld) [Volume fraction]38.8 %Low 41.0-53.0[facility] on above:Performed By: #### CDP, BMP, PT, TSHX #### [facility] [address] [place] [address] Salon Sales Consultant: Milo Engle DOHemoglobin (Bld) [Mass/Vol]11.0 g/dLLow 13.5-17.5[facility] on above:Performed By: #### CDP, BMP, PT, TSHX #### [facility] [address] [place] [address] Salon Sales Consultant: Milo Engle DOMCH (RBC) [Entitic mass]24.3 pgLow26.0-34.0 [facility] on above:Performed By: #### CDP, BMP, PT, TSHX #### [facility] [address] [place] [address] Salon Sales Consultant: Milo Engle DOMCHC (RBC) [Mass/Vol]28.4 g/dLLow31.0-37.0 [facility] on above:Performed By: #### CDP, BMP, PT, TSHX #### [facility] [address] [place] [address]. [place] [address] Salon Sales Consultant: Milo Engle DOMCV (RBC) [Entitic vol]85.7 fLNormal 80.0-100.0[facility] HospitalComharper university hospital on above:Performed By: #### MAGY, BMP, PT, TSHX #### [facility] [address] [place] [address] Salon Sales Consultant: Milo Engle DONRBC Automated0.0 per 100 TYXJspdzs3WwhnwTrinity Health [facility] on above:Performed By: #### CDP, BMP, PT, TSHX #### [facility] [address] [place] [address]. [place] [address] Salon Sales Consultant: Milo Engle DOPlatelet mean volume (Bld) [Entitic vol]10.0 fLNormal8.0-13.5[facility] on above:Performed By: #### MAGY, BMP, PT, TSHX #### [facility] [address] [place] [address] Salon Sales Consultant: Milo Engle DOPlatelets (Bld) [#/Vol]245 10*3/uLNormal 150-450[facility] on above:Performed By: #### CDP, BMP, PT, TSHX #### [facility]0 [facility] [place] [address] Salon Sales Consultant: Milo Engle DORBC ([place]) [#/Vol]4.53 10*6/uLNormal4.21-5.77 [facility] on above:Performed By: #### CDP, BMP, PT, TSHX #### [facility] [address] [place] [address]. [place] [address] Salon Sales Consultant: Milo Engle DOWBC ([place]) [#/Vol]7.3 10*3/uLNormal3.5-11.0 [facility] on above:Performed By: #### CDP, BMP, PT, TSHX #### [facility] [address] [place] [address]. [place] [address] Salon Sales Consultant: Milo Engle DOMRSA, DNA, Nasalon 48-69-3606Ttfwouxn Description.NASAL SWABNormalLima Memorial HospitalComharper university hospital on above:Performed By: #### OBS #### [facility] [address] [place] [address] Salon Sales Consultant: Milo Engle [facility] 45-15-6856Vwj Yancy [facility] 18-92-2487PFP Coag (PPP) [Relative time]1.9 {INR}NormalTrinity Health System [facility] on above:Result Comment: Therapeutic Range: Moderate Anticoagulant Intensity: INR = 2.0-3.0 High Anticoagulant Intensity: INR = 2.5-3.5Performed By: #### CDP, BMP, PT, TSHX #### [facility] [address] [place] [address] Salon Sales Consultant: Milo Engle DOPT Coag (PPP) [Time]23.2 sHigh11.8-14.6MSelect Medical [facility] on above:Performed By: #### CDP, BMP, PT, TSHX #### [facility] [address] [place] [address] Salon Sales Consultant: Milo Engle DOProcalcitoninon 42-72-9471Gulvvnmsektzo [Mass/Vol]0.08 ng/mL0.00 - 0.09 ng/mLBon [facility] on above: Suspected Sepsis: <0.50 ng/mL Low [...] entered into the Change in Procalcitonin Calculator (www.nrvgnq-lsk-qzbqknqssb.[employer] to determine the patient's Mortality Risk Prognosis In healthy neonates, plasma Procalcitonin (PCT) concentrations increase gradually after , reaching peak values at about 24 hours of age then decrease to normal values below 0.5 ng/mL by 48-72 hours of age. Bon [facility] Memorial HospitalProcalcitonin0.08 ng/mLNormal0.00-0.09MerGeorgetown Behavioral Hospital on above:Result Comment: Suspected Sepsis: <0.50 ng/mL [...] entered into the Change in Procalcitonin Calculator (www.sdhlpp-lil-drsvryfnow.com) to determine the patient's Mortality Risk Prognosis In healthy neonates, plasma Procalcitonin (PCT) concentrations increase gradually after , reaching peak values at about 24 hours of age then decrease to normal values below 0.5 ng/mL by 48-72 hours of age.Performed By: #### MYCM #### [address] [address] Salon Sales Consultant: Loi Oliver MD #### PRCAL #### [facility] [address] [place] [address] Salon Sales Consultant: Milo Engle DOProtime-INRon 18-17-1483QMS Coag (PPP) [Relative time]1.9 {INR}[facility] on above: Therapeutic Range: Moderate Anticoagulant Intensity: INR = 2.0-3.0 High Anticoagulant Intensity: INR = 2.5-3.5 Interpretation and review of laboratory resultsAbCentra Bedford Memorial Hospital PT Coag (PPP) [Time]23.2 sHighBon [facility] Resp Viral Panelon 61-96-4554TfayryacsqOul detectedNormalNOTDETMSelect Medical [facility] on above:Performed By: #### RVP #### [facility] [place] [address] Salon Sales Consultant: Milo Engle DO [employer] [address] [address] Salon Sales Consultant: Christophe Correia.parapertussisNot detectedNormalNOTDET [facility] on above:Performed By: #### RVP #### [facility] [address] [place] [address] Salon Sales Consultant: Milo Engle DO [address] [address] Salon Sales Consultant: Diya Correialla pertussisNot detectedNormalNOTDET [facility] HospitalComharper [facility] on above:Performed By: #### RVP #### [facility] [address] [place] [address] Salon Sales Consultant: Milo Engle [address] [address] Salon Sales Consultant: Kim Correiaamyd.pneumoniaeNot detectedNormalNOTDEThe MetroHealth SystemComharper university hospital on above:Performed By: #### RVP #### [facility] [address] [place] [address] Salon Sales Consultant: Milo Engle [address] [address] Salon Sales Consultant: Marge Correiaavirus 229ENot detectedNormalNOTSt. Francis HospitalComharper university hospital on above:Performed By: #### RVP #### [facility] [address] [place] [address] Salon Sales Consultant: Milo Engle [address] [address] Salon Sales Consultant: RAJNI Correiaoronavirus TXK6Elw detectedNormalNOTDEThe MetroHealth SystemComharper university hospital on above:Performed By: #### RVP #### [facility] [address] [place] [address] Salon Sales Consultant: Milo Engle [employer] [address] Salon Sales Consultant: RAJNI Correiaoronavirus RZ61Tfp detectedNormalNOTDEThe MetroHealth SystemComharper university hospital on above:Performed By: #### RVP #### [facility] [address] [place] [address] Salon Sales Consultant: Milo Engle [address] [address] Salon Sales Consultant: Reji Correia KX70Orr detectedNormalNOTDEPremier Health [facility] on above:Performed By: #### RVP #### [facility] [address] [place] [address] Salon Sales Consultant: Milo Engle [employer] [address] Salon Sales Consultant: Yoselin Correia MetapneumoDetectedAbnormalNOTDEThe MetroHealth SystemComharper university hospital on above:Performed By: #### RVP #### [facility] [address] [place] [address] Salon Sales Consultant: Milo Engle [employer] [address] [address] Salon Sales Consultant: Ronni Correia ANot detectedNormalNOTDEThe MetroHealth SystemComharper university hospital on above:Performed By: #### RVP #### [facility] [address] [place] [address] Salon Sales Consultant: Milo Engle [employer] [address] [address] Salon Sales Consultant: Ronni Correia BNot detectedNormalNOTDEThe MetroHealth SystemComharper university hospital on above:Performed By: #### RVP #### [facility] [address] [place] [address] Salon Sales Consultant: Milo Engle [employer] [address] [address] Salon Sales Consultant: Yaritza Correia.pneumoniaeNot detectedNormalNOTDEPremier Health [facility] Hospital [facility] on above:Result Comment: Performed by multiplexed nucleic acid assay.Performed By: #### RVP #### [facility] [address] [place] [address] Salon Sales Consultant: Milo Engle DO [employer] [address] Salon Sales Consultant: Geo Correia 1Not detectedNormalSelect Medical [facility] on above:Performed By: #### RVP #### [facility] [address] [place] [address] Salon Sales Consultant: Milo Engle [employer] [address] Salon Sales Consultant: Geo Correia 2Not detectedNormMorrow County Hospital on above:Performed By: #### RVP #### [facility] [address] [place] [address] Salon Sales Consultant: Milo Engle [employer] [address] Salon Sales Consultant: Geo Correia 3Not detectedNormMorrow County Hospital on above:Performed By: #### RVP #### [facility] [address] [place] [address] Salon Sales Consultant: Milo Engle [employer] [place] [address] Salon Sales Consultant: Geo Correia 4Not detectedNormgaNOTAdena Health System on above:Performed By: #### RVP #### [facility] [address] [place] [address] Salon Sales Consultant: Milo Engle [address] [address] Salon Sales Consultant: JUDITH Correiaesp Syncytial VirusNot detectedNoAccess Hospital DaytonComharper university hospital on above:Performed By: #### RVP #### [facility] [address] [place] [address] Salon Sales Consultant: Milo Engle [address] [address] Salon Sales Consultant: JUDITH Correiahino/EnterovirusNot detectedNormMorrow County Hospital on above:Performed By: #### RVP #### [facility] [address] [place] [address] Salon Sales Consultant: Milo Engle [address] [address] Salon Sales Consultant: MATHIEU Correia-CoV-2 (COVID-19) RNA KARI+probe Ql (Unsp spec)Not detectedNoDunlap Memorial HospitalComharper university hospital on above: Performed By: #### RVP #### [facility] [address] [place] [address] Salon Sales Consultant: Milo Engle [address] [address] Salon Sales Consultant: Mary Correia:.NASOPHARYNGEAL SWABNormalMerOhioHealth Riverside Methodist HospitalComharper university hospital on above:Performed By: #### RVP #### [facility] [address] [place] [address] Salon Sales Consultant: Milo Engle [address] [address] Salon Sales Consultant: Elisa Correia Panel, Molecular, with COVID-19 (Restricted: peds pts or suitable admitted adults)on 19-93-4448Vssocounct DNA KARI+non-probe Ql (Nph)Not detectedNot DetectedBon SecChillicothe VA Medical CenterB. parapertussis EU5980 DNA KARI+non-probe Ql (Nph)Not detectedNot DetectedBon Secours St. John Of God HospitalB. pertussis DNA KARI+probe Ql (Unsp spec)Not detectedNot DetectedBon SecChillicothe VA Medical CenterC. pneumoniae DNA KARI+non-probe Ql (Nph)Not detectedNot DetectedBon Secours St. John Of God HospitalFLUAV RNA KARI+non-probe Ql (Nph)Not detectedNot DetectedBon Secours St. John Of God HospitalFLUBV RNA KARI+non-probe Ql (Nph)Not detectedNot DetectedBon Secours St. John Of God HospitalHCoV 229E RNA KARI+non-probe Ql (Nph) Not detectedNot DetectedBon Secours St. John Of God HospitalHCoV HKU1 RNA KARI+non-probe Ql (Nph)Not detectedNot DetectedBon SecChillicothe VA Medical CenterHCoV NL63 RNA KARI+non-probe Ql (Nph)Not detectedNot DetectedBon SecChillicothe VA Medical CenterHCoV OC43 RNA KARI+non- probe Ql (Nph)Not detectedNot DetectedBon SecChillicothe VA Medical CenterhMPV RNA KARI+non- probe Ql (Nph)DetectedAbnormalNot DetectedBon [facility] Memorial HospitalInterpretation and review of laboratory resultsAbnormalBon SecChillicothe VA Medical CenterM. pneumoniae DNA KARI+non-probe Ql (Nph)Not detectedNot DetectedBon [facility] Comment on above:Performed by multiplexed nucleic acid assay.Parainfluenza virus 1 RNA KARI+non-probe Ql (Nph)Not detectedNot DetectedBon [facility] Parainfluenza virus 2 RNA KARI+non-probe Ql (Nph)Not detectedNot DetectedBon SecChillicothe VA Medical CenterParainfluenza virus 3 RNA KARI+non-probe Ql (Nph)Not detected Not DetectedBon SecChillicothe VA Medical CenterParainfluenza virus 4 RNA KARI+non-probe Ql (Nph)Not detectedNot DetectedBon SecChillicothe VA Medical CenterRhinovirus+Enterovirus RNA KARI+non-probe Ql (Nph)Not detectedNot DetectedBon SecChillicothe VA Medical CenterRSV RNA KARI+non-probe Ql (Nph)Not detectedNot DetectedBon [facility] Memorial HospitalSARS-CoV-2 (COVID-19) RNA KARI+non-probe Ql (Nph)Not detectedNot DetectedBon [facility] Memorial HospitalSpecimen Description.NASOPHARYNGEAL SWABBon [facility] Memorial HospitalBon SecSumma Health reflex to FT4on 24-57-5199TDN Qn1.29 m[IU]/LBon [facility] w/reflex to FT4on 12-34-2802Bahxlxd Stim. Horm.1.29 uIU/mLNormal 0.27-4.20MerOhioHealth Riverside Methodist HospitalComment on above:Performed By: #### CDP, BMP, PT, TSHX #### [facility] [address] [place] [address] Salon Sales Consultant: Milo Engle DOUrinalysis w/ Microon 00-30-7140AijfysqvTYL AbnormalSumma Health Akron CampusComharper university hospital on above:Performed By: #### OBS #### [facility] [address] [place] [address] Salon Sales Consultant: Milo Engle DOBilirubin, SemiQt,UrNegativeNormalNEGLima Memorial HospitalComharper university hospital on above:Performed By: #### OBS #### [facility] [address] [place] [address]. [place] [address] Salon Sales Consultant: Milo Engle DOBlood, UrineTRACEAbnormalNEGLima Memorial HospitalComharper university hospital on above:Performed By: #### OBS #### [facility] [address] [place] [address]. [place] [address] Salon Sales Consultant: Milo Engle DOCasts6 TO 9AbnormalSumma Health Akron CampusComharper university hospital on above:Performed By: #### OBS #### [facility] [address] [place] [address] Salon Sales Consultant: Milo Engle DOClarity (U)ClearNormalCLEARLima Memorial HospitalComharper university hospital on above:Performed By: #### OBS #### [facility] [address] [place] [address] Salon Sales Consultant: Milo Engle DOColor (U)YellowNormalYELMercy Marietta Memorial HospitalComharper university hospital on above:Performed By: #### OBS #### [facility] [address] [place], [place] [address] [place] [address] Salon Sales Consultant: Milo Engle DOEpithelial cells LM Ql (Urine sed)0 TO 2 NormalMerOhioHealth Riverside Methodist HospitalComharper university hospital on above:Performed By: #### OBS #### [facility] [address] [place] [address] Salon Sales Consultant: Milo Engle DOGlucose Ql (U)NegativeNormalNEGMerOhioHealth Riverside Methodist HospitalComharper university hospital on above:Performed By: #### OBS #### [facility] [address] [place] [address] Salon Sales Consultant: Milo Engle DOKetones Ql (U)NegativeNormalNEGMerOhioHealth Riverside Methodist HospitalComharper university hospital on above:Performed By: #### OBS #### [facility] [address] [place] [address] Salon Sales Consultant: Milo Engle DOLeukocyte esterase Test strip Ql (U)MOD AbnormalNEGMerOhioHealth Riverside Methodist HospitalComharper university hospital on above:Performed By: #### OBS #### [facility] [address] [place] [address] Salon Sales Consultant: Milo Engle DONitrite,UrPositiveAbnormalNEGMerOhioHealth Riverside Methodist HospitalComharper university hospital on above:Performed By: #### OBS #### [facility] [address] [place] [address] Salon Sales Consultant: Milo Engle DOPH,Ur6.8Lgiyxb0.0-8.0MerOhioHealth Riverside Methodist HospitalComharper university hospital on above:Performed By: #### OBS #### [facility] [address] [place] [address] Salon Sales Consultant: Milo Engle DOProtein Ql (U)1+ mg/dLAbnormalNEGTrinity Health System [facility] on above:Performed By: #### OBS #### [facility] [address] [place] [address] Salon Sales Consultant: Milo Engle DOSpec. [place],Ur1.372Nkcxou9.000-1.030L[facility] HospitalComharper university hospital on above:Performed By: #### OBS #### [facility] [address] [place] [address] Salon Sales Consultant: Milo Engle DOUrine RBC's6 TO 9YrzhxhqcQ99MckdyTrinity Health System [facility] on above:Performed By: #### OBS #### [facility] [address] [place] [address] Salon Sales Consultant: Milo Engle DOUrine WBC's51 TO 235JgysfuoyW13XedufLima Memorial HospitalComharper university hospital on above:Performed By: #### OBS #### [facility] [address] [place] [address] Salon Sales Consultant: Milo Engle DOUrobilinogen,UrNormalNormal0.0-1.0L[facility] HospitalComharper university hospital on above:Performed By: #### OBS #### [facility] [address] [place] [address] Salon Sales Consultant: Milo Engle DOUrinalysis with Microscopicon 10-02-2024 Bacteria LM Ql (Urine sed)FEWAbnormalNoneBon Secours [facility] HealthBilirubin Ql (U)NegativeNEGATIVEBon Secours St. John Of God HospitalCasts LM.LPF (Urine sed) [#/Area]6 TO 9AbnormalNone /LPFBon Secours St. John Of God HospitalClarity (U)ClearClearBon Secours Mercy HealthColor (U)YellowYellowBon [facility] Memorial HospitalEpithelial cells LM.HPF (Urine sed) [#/Area]0 TO 2/HPFBon [facility] Memorial HospitalGlucose Test strip (U) [Mass/Vol]NegativeNEGATIVE mg/dLBon [facility] HospitalHemoglobin Auto test strip Ql (U)TRACEAbnormalNEGATIVEBon [facility] HealthInterpretation and review of laboratory resultsAbnormalBon [facility] HealthKetones (U) [Mass/Vol]NegativeNEGATIVE mg/dLBon [facility] HospitalLeukocyte esterase Test strip Ql (U)MODAbnormalNEGATIVEBon [facility] HealthNitrite Ql (U)Positive AbnormalNEGATIVEBon [facility] Memorial HospitalpH (U)6 [pH]5.0 - 8.0Bon [facility] HospitalProtein (U) [Mass/Vol]1+AbnormalNEGATIVE mg/dLBon [facility] HospitalRBC LM.HPF (Urine sed) [#/Area]6 TO 0Wrfhylkl1 TO 2 /HPFDominion Hospital Specific gravity (U) [Rel density]1.0171.000 - 1.030Bon [facility] Urobilinogen Qn (U)Normal0.0 - 1.0 EU/dLBon [facility] Memorial HospitalWBC LM.HPF (Urine sed) [#/Area]51 TO 730Xpzcojjd9 TO 5 /HPFBon [facility] Medical CenterUrine Cultureon 88-89-6284Fstjagax identified Cx Nom (U) ORGANISM: Klebsiella oxytoca (O:KLEOXY) Fenton Count >100,000 ORGANISM: Enterobacter cloacae complex (O:ENTCLOCPLX) Fenton Count >100,000 Aerobic RITESH Charge (NMIC56) SUSCEPTIBILITY [...] RESISTANT TO ALL B-LACTAM DRUGS. PERFORMED BY: [facility] [address] [place] [address] PATHOLOGIST MANAGER FINANCIAL SERVICES ED CRUZ M.D.HealthPark Medical Center Physician GroupComment on above: Performed By: #### JHONNY LOZANO #### [facility] [address] [place] [address] USAUrine cultureOrdered By: Robe Hansen on 23-58-5870Rmamwmuy identified Cx Nom (U)AbnormalKeenan Private HospitalBacteria identified Cx Nom (U)AbnormalKeenan Private HospitalUS aortaon 86-21-0453RR aortaSt. Francis Hospital [facility]ascular [address] [place], [place] [address] Ultrasound Report Signed Patient: Alex Anderson MR#: [id number] [birth year] : 1945 Acct:[id number] Age/Sex: 78 / M ADM Date: 09/23/24 Loc: [facility] Room: Type: DEP CLI Attending Dr: Margarito [...] Valentine MD,FACS,FSVS 09/30/2024 8:31 AM Dictation Location: [place] [address] Tech: Juani Steward Transcribed By: LIONEL 09/30/24830 Dictated By: Margarito Valentine MD 09/30/24829 Signed By: 09/30/24 0831HealthPark Medical Center Physician GroupUS arterial duplex LE BIon 26-83-0308VV arterial duplex LE [facility] [address] [place] [address] Ultrasound Report Signed Patient: Alex Anderson MR#: [id number] [birth year] : 1945 Acct:[id number] Age/Sex: 78 / M ADM Date: 09/23/24 Loc: [facility] Room: Type: DEP CLI Attending Dr: Margarito [...] Valentine MD,FACS,FSVS 09/30/2024 8:30 AM Dictation Location: [place] [address] Tech: Juani Nichelle Transcribed By: [facility] 09/30/[address] Dictated By: Margarito Valentine MD 09/30/2429 Signed By: 09/30/24829HealthPark Medical Center Physician GroupUrine Cultureon 09-28-2024 Bacteria identified Cx Nom (U)ORGANISM: Enterobacter cloacae complex (O:ENTCLOCPLX) Fenton Count >100,000 ORGANISM: Enterobacter cloacae complex (O:ENTCLOCPLX) Fenton Count >100,000 Aerobic RITESH Charge (NMIC56) SUSCEPTIBILITY [...] RESISTANT TO ALL B-LACTAM DRUGS. PERFORMED BY: [place] [address] PATHOLOGIST MANAGER FINANCIAL SERVICES ED CRUZ M.D.HealthPark Medical Center Physician GroupComment on above: Performed By: #### MAISHA LOZANOU #### [place] [address] USAUrine cultureOrdered By: Talya Bo on 58-40-1779Ixvdrpkv identified Cx Nom (U)AbnormalKeenan Private HospitalUrinalysis macro (dipstick) panel (U)on 83-66-2695Bodqsuxhg, UANegativeNegative - 4(70) +++ mg/dL NOMS HealthcareBlood, [...] - 12 mg/dLNOMS HealthcareNOMS HealthcareECG 12 Leadon 77-54-0312IRK revealed normal sinus rhythm, right axis deviation, IVCD, septal myocardial infarction of undetermined age, diffuse repolarization abnormalities, abnormal ECGCPACSGeorgetown Behavioral Hospital Work Phone: ambulatory Visit Summaryon 43-66-8803Ihmnciyvuf Visit SummaryAmbulatory Visit Summary ALEX ANDERSON :1945 [...] CASILLAS, Katia Macias Where: [facility] [address] [place] [address]- Medications What How Much When Instructions Unchanged [...] you for choosing us for your care. The Jewish HospitalITPon 12-64-[address]9F[address] [address] Cardiac Rehab Report Signed Patient: ALEX ANDERSON MR#: [id number] : 1945 Acct:[id number] Age/Sex: 78 / M ADM Date: 08/23/24 Loc: CR Attending Dr: TEO AL Ordering Physician: Martita Garnica D.O. Date of Service: 08/23/24 Procedure(s): ITP Accession Number(s): [id number] cc: [facility] Test Date: 2024-08-23 Pat Name: ALEX ANDERSON Department: Room: - Gender: Male Blender Operator: : 1945 Requested By: MARTITA GARNICA Order Number: [id number] Silverio CASILLAS: MARTITA GARNICA Interpretive Statements Session Date: Electronically Signed On 09-05-2024 19:58:42 EDT by MARTITA GARNICA Dictated By: Martita Garnica D.O. Signed By: 09/05/24195809/05/241958 DD/ [facility] TD/TT: Authors Motivational:TBHRadiology, Radiologist, - 09/05/2024 [place] [address] Cardiac Rehab Report Signed Patient: ALEX ANDERSON MR#: [id number] : 1945 Acct:[id number] Age/Sex: 78 / M ADM Date: 08/23/24 Loc: CR Attending Dr: TEO AL Ordering Physician: Martita Garnica D.O. Date of Service: 08/23/24 Procedure(s): ITP Accession Number(s): [id number] cc: [facility] Test Date: 2024-08-23 Pat Name: ALEX ANDERSON Department: Room: - Gender: Male Blender Operator: : 1945 Requested By: MARTITA GARNICA Order Number: [id number] Silverio CASILLAS: MARTITA GARNICA Interpretive Statements Session Date: Electronically Signed On 09-05-2024 19:58:42 EDT by MARTITA GARNICA Dictated By: Martita Garnica D.O. Signed By: 09/05/24195809/05/241958 DD/ 1441 TD/TT: Authors Motivational: MARSHAL HealthcareITPOrdered By: Radiologist Radiology on 25-29-6899EQWD [facility] Work Phone: aLL LIPID PROFILE (FASTING)on 79-58-8022XJUR HDL RATIO 2NOMS HealthcareComment on above:3.3 - 4.4 LOW RISK 4.4 - 7.1 AVERAGE RISK 7.1 - 11.0 MODERATE RISK >11.0 HIGH RISK Cholesterol [Mass/Vol]86 mg/dLNINF - 200 mg/dLNOCO HealthcareCholesterol in HDL [Mass/Vol]43 mg/dL40 - 60 mg/dLNOCO HealthcareComment on above:> or =60 mg/dl - LOW CARDIOVASCULAR RISK <40 mg/dl - HIGH CARDIOVASCULAR RISK Magnesium [Mass/Vol]26.8 mg/dLNOCO HealthcareComment on above:<100 mg/dl OPTIMAL 100-129 mg/dl NEAR OR ABOVE OPTIMAL 130-159 mg/dl BORDERLINE HIGH 160-189 mg/dl HIGH >190 mg/dl VERY HIGH Magnesium [Mass/Vol]16.2 mg/dLNOCO HealthcareTriglyceride [Mass/Vol]81 mg/dLNINF - 150 mg/dLNOCO HealthcareALL THYROID STIM HORMONEon 42-13-0999GSW Qn0.537 m[IU]/LNOKLAHOMA SPINE HOSPITAL – [place] HealthcareNo Panel Informationon 41-89-7645DIHJCXLJMWQTR Healthcare ITPon 60-89-6069Lxinrwowk Study observation (narrative)[facility] HealthcareAmbulatory Visit Summaryon 21-57-5557Jvslgjmqit Visit SummaryAmbulatory Visit Summary ALEX ANDERSON :1945 [...] With: Fabi Antonio Where: [facility] [address] [place] [address] [place] [address]- Friday 2:00 PM EDT With: Katia SAMUELS MD Where: [facility] [address] [place], [place] [address]dg. [place] [address]- Medications What How Much When Instructions Unchanged [...] you for choosing us for your care. [facility] Jewish HospitalTRANSTHORACIC ECHO (TTE) LIMITED on [phone] ECHO (TTE) [address], [address] [place] [address] TRANSTHORACIC ECHOCARDIOGRAM REPORT Patient Name: ALEX ANDERSON Reading Physician: [id number] Ana Castro MD Study Date: 08/06/2024 Ordering Provider: [id number] TEO AL MRN/PID: [id number] Fellow: Nurse: Date of /Age: 7 1945 / 78 years Manager Of Human Resources: Marlyn Castro RDCS, RT(R), RDMS, RVT Gender Assigned at Additional Staff: : Height: 187.96 cm Admit Date: Weight: 92.53 kg Admission Status: Outpatient BSA / BMI: 2.19 m2 / 26.19 Department Location: [facility] kg/m2 [place] Blood Pressure: 98 /64 mmHg Study Type: TRANSTHORACIC ECHO (TTE) LIMITED Diagnosis/ICD: 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 Pertinent History: A-Fib, [...] 0.6 m/s (0.6-0.9m/s) PV Max P.6 mmHg [id number] Ana Castro MD Electronically signed on 08/11/2024 [...] Locations R1: This test was performed at: [facility], [address] [place] [address], [address]- , , HpmmvdRjmvjoThe Jewish HospitalComment on above:Performed By: #### [id number] #### [facility] [address] [place] [address]Tggrlasejso distribution width Auto (RBC) [Ratio]on 08-02-2024 Erythrocyte distribution width (RBC) [Ratio]Erythrocyte distribution width [Ratio] by Automated yvwwpDryw91.0-15.0[facility] Estimated glomerular filtration rate (GFR) non- Americanon 08-02-2024 GFR/1.73 sq M.predicted among non-blacks MDRD (S/P/Bld) [Vol rate/Area]Estimated glomerular filtration rate (GFR) non- AmericanLow>=60 mL/min/1.73m 2 [facility] HospitalHematocrit Auto (Bld) [Volume fraction]on 06-60-1433Ouirtauixe (Bld) [Volume fraction]Hematocrit [Volume Fraction] of Blood by Automated gnohxEtj65.0-54.0[facility] HospitalHemoglobin [Mass/volume] in Bloodon 25-67-9330Teysiuocdx (Bld) [Mass/Vol]Hemoglobin [Mass/volume] in LypkmXdf72.0-18.0[facility] HospitalIron binding capacity [Mass/volume] in Serum or Plasmaon 76-72-7786Owlv binding capacity [Mass/Vol]Iron binding capacity [Mass/volume] in Serum or Ozktta558.0-450.0 [facility] HospitalIron saturation [Mass Fraction] in Serum or Plasmaon 26-44-8613Kxpx saturation [Mass fraction]Iron saturation [Mass Fraction] in Serum or PlasmaKeenan Private HospitalLaboratory - Chemistry and Chemistry - challengeon 55-21-8134Jirgqww [Mass/Vol]3.2 g/dLLow 3.4-5.0[facility] HospitalCalcium [Mass/Vol]8.5 mg/dL8.5-10.1 [facility] HospitalChloride [Moles/Vol]107 mmol/Z43-982UxywnubgeKeenan Private HospitalCO2 [Moles/Vol]28.3 mmol/L21.0-32.0[facility] HospitalCobalamin (Vitamin B12) [Mass/Vol]399 pg/eU369-4876NfmpltqerKeenan Private HospitalComment on above:Performed at: - [facility] [address] [id number] Director: Morgan Carpenter PhD, Phone: [phone] [Mass/Vol]2.07 mg/dLHigh0.70-1.30[facility] HospitalFerritin [Mass/Vol]35.0 ng/mL26.0-388.0[facility] GFR/1.73 sq M.predicted MDRD (S/P/Bld) [Vol rate/Area]38 mL/min/{1.73_m2}Low>=60 mL/min/1.73m 2FBerger HospitalGlucose [Mass/Vol]106 mg/mO20-618 [facility] HospitalIron [Mass/Vol]22.0 ug/dLLow65.0-175.0[facility] HospitalMagnesium [Mass/Vol]2.1 mg/dL1.8-2.4FBerger HospitalPotassium [Moles/Vol]4.1 mmol/L3.5-5.1FMemorial Health System Marietta Memorial Hospitalodium [Moles/Vol]144 mmol/H731-382DamhisecrKeenan Private HospitalUrate [Mass/Vol]5.8 mg/dL3.5-7.2FBerger HospitalUrea nitrogen [Mass/Vol]28.0 mg/dLHigh7.0-18.0[facility] HospitalUrea nitrogen/Creatinine [Mass ratio]13.5 mg/mgKeenan Private Hospital Laboratory - Urinalysison 18-31-0622Umvhexn (U) [Mass/Vol]19.4 mg/dLHigh<=11.9 [facility] HospitalLeukocytes [#/volume] corrected for nucleated erythrocytes in Blood by Automated counon 18-35-1298ARM corrected for nucl RBC Auto (Bld) [#/Vol]Leukocytes [#/volume] corrected for nucleated erythrocytes in Blood by Automated coun4.0-11.0[facility] SystemH Auto (RBC) [Entitic mass]on 03-00-3585GAU (RBC) [Entitic mass]MCH [Entitic mass] by Automated szcuoHgr02.9-34.0[facility] HospitalMCHC Auto (RBC) [Mass/Vol]on 94-27-9264GTKM (RBC) [Mass/Vol]MCHC [Mass/volume] by Automated spwrnCug34.9-35.2FBerger HospitalMCV Auto (RBC) [Entitic vol]on 69-40-1059YOA (RBC) [Entitic vol]MCV [Entitic volume] by Automated countLow 80.0-94.0[facility] HospitalNo Panel Informationon - Hydroxy Vitamin D Total48.3 ng/mLKeenan Private HospitalComment on above:<20 ng/mL Vit D wtvxqqiaq18-<30 ng/mL Vit D wdhbykmqwdyw00-205 ng/mL Vit D sufficient>100 ng/mL Potential UkqljefpEvbnfy11.30 ng/mL8.60-58.90[facility] HospitalParathyroid Hormone (Intact)62 pg/zE92-73UedrmslcmKeenan Private HospitalComment on above:Performed at: - [facility] [id number] Director: Morgan Carpenter PhD, Phone: [phone] Level3.1 mg/dL2.6-4.7FBerger HospitalUrine Random Qquhuvmkbr67.50 mg/dL20.00-300.00[facility] Platelet mean volume Auto (Bld) [Entitic vol]on 09-94-7684Bocieavw mean volume (Bld) [Entitic vol]Platelet mean volume [Entitic volume] in Blood by Automated count9.5-13.5FBerger HospitalPlatelets Auto (Bld) [#/Vol]on 50-82-9441Zfytbkipq (Bld) [#/Vol]Platelets [#/volume] in Blood by Automated -067TkxugvdjaKeenan Private HospitalRBC Auto (Bld) [#/Vol]on 08-02-2024 RBC (Bld) [#/Vol]Erythrocytes [#/volume] in Blood by Automated countLow4.70-6.10 [facility] Springfielderum or plasma anion gap determinationon 18-58-6901Xxhpi gap [Moles/Vol]Serum or plasma anion gap determinationKeenan Private HospitalUrine protein/creatinine ratioon 08-02-2024 Protein/Creatinine (U) [Ratio]Urine protein/creatinine ratioKeenan Private HospitalECG 12 Leadon 59-45-3060VVX revealed normal sinus rhythm with first-degree AV block, septal myocardial infarction of undetermined age, diffuse repolarization abnormalities, abnormal ECGCPACSGeorgetown Behavioral Hospital Work Phone: ITPon [phone] [address] Cardiac Rehab Report Signed Patient: ALEX ANDERSON MR#: [id number] : 1945 Acct:[id number] Age/Sex: 78 / M ADM Date: 07/23/24 Loc: CR Attending Dr: TEO AL Ordering Physician: Martita Garnica D.O. Date of Service: 07/23/24 Procedure(s): ITP Accession Number(s): [id number] cc: [facility] Test Date: 2024-07-23 Pat Name: ALEX ANDERSON Department: Room: - Gender: Male Blender Operator: : 1945 Requested By: MARTITA GARNICA Order Number: [id number] Silverio MD: MARTITA GARNICA Interpretive Statements Session Date: Electronically Signed On 07-25-2024 8:18:39 EST by MARTITA GARNICA Dictated By: Martita Garnica D.O. Signed By: 07/25/2481707/25/24817 DD/ 1540 TD/TT: Authors Motivational:ALEMadiologbere Radiologist, - 07/25/2024 [place] [address] Cardiac Rehab Report Signed Patient: ALEX ANDERSON MR#: [id number] : 1945 Acct:[id number] Age/Sex: 78 / M ADM Date: 07/23/24 Loc: CR Attending Dr: TEO AL Ordering Physician: Martita Garnica D.O. Date of Service: 07/23/24 Procedure(s): ITP Accession Number(s): [id number] cc: [facility] Test Date: 2024-07-23 Pat Name: ALEX ANDERSON Department: Room: - Gender: Male Blender Operator: : 1945 Requested By: MARTITA GARNICA Order Number: [id number] Silverio CASILLAS: MARTITA GARNICA Interpretive Statements Session Date: Electronically Signed On 07-25-2024 8:18:39 EST by MARTITA GARNICA Dictated By: Martita Garnica D.O. Signed By: 07/25/24 0818 07/25/24817 DD/ 1540 TD/TT: Authors Motivational: NOMS HealthcareITPOrdered By: Radiologist Radiology on 28-60-0373FDBW Healthcare Work Phone: ITPon [phone] Study observation (narrative)MARSHAL HealthcareAmbulatory Visit Summaryon 76-00-8468Srjjzkgcot Visit SummaryAmbulatory Visit Summary ALEX ANDERSON :1945 [...] HEATHER OMALLEY PA-C Where: [facility] [address] [facility] [place] [address]- Friday. 2024 2:00 PM EDT With: ABRIL CASILLAS, Katia Macias Where: [facility] [place] [address] [address]- Medications What How Much When Instructions New cephalexin (Keflex 250 mg Cap) 1 Capsules By Mouth Every day Refills: 1 Pickup at [facility]/pharmacy #[id number] Unchanged albuterol (Albuterol (Eqv-ProAir HFA) 90 mcg/ [...] physician if questions or concerns Pharmacy Information [facility]/pharmacy #[id number]: [address], [place] [id number] [phone] What How Much When Comments Stop Taking [...] e-mail asking about yo (more content not included)...[facility] HospitalUrology Office/Clinic Noteon 96-21-4334Gzwxnlt Office/Clinic NoteUrology Office/Clinic Note Chief Complaint cath [...] E&M of Est. Patient Moderate 30-39 Min 98062 Influenza immunization status assessed 1030F Insertion of temp indwelling bladder cath (zapien) simple 77895 Medication list documented in medical record 1159F [...] stop the suppressive abx. 3. Anticoagulated, (Z79.01: correction (current) use of anticoagulants)Anticoagulated Coumadin & Plavix Ordered: E&M of Est. Patient Moderate 30-39 Min 40022 4. Bladder cancer (C67.9: Malignant neoplasm of bladder, unspecified) Original TURBT/extraction of 2 bladder calculi 09/12/22 - Noninvasive papillary urothelial carcinoma, low grade. Invasion is not recognized. A small fragment of detrusor muscle is present in the specimen. Last cysto 04/06/24. Next cysto 10/05/24. Orders: cephalexin, 250 mg = 1 cap(s), Oral, Daily, # 30 cap(s), Refills(s) 1, Pharmacy: [facility]/pharmacy #[id number], 187, cm, 07/15/24 10:46:00 EST, Height/Length Dosing, 93, kg, 07/15/24 10:46:00 EST, Weight Dosing sterile water, See Instructions, 500 mL, Refill(s) 5, Irrigate zapien catheter as needed with 60 cc sterile water, [facility]/pharmacy #[id number], 187, cm, 04/06/24 11:21:00 EST, Height/Length Dosing, 93, kg, 04/06/24 11:21:00 EST, Weight Dosing Follow-up With When Contact Information HEATHER OMALLEY PA-C, URL In 1 month [address] [place] [place] [address] Additional Instructions: Patient Education Bladder [...] 1 cap(s), Oral, (more content not included)...Normal [facility] CenterComment on above:Result Comment: Electronically Signed By: HEATHER OMALLEY PA-C\.br\Date and Time Signed: 07/15/2513:06 ESTALL THYROID STIM HORMONEon 65-63-0687Szrzaerfkcadpe and review of laboratory results AbnormalNOSSM Health Care Qn0.039 m[IU]/LLowCox Walnut LawnCLINISYNCNRay County Memorial HospitalOH PROTHROMBIN TIME INR W/O COUMon 19-83-6171Xsjcgqnwmifwir and review of laboratory resultsAbnormalNOMS HealthcarePT Coag (PPP) [Time]61.5 s Critically highNOMS HealthcareComment on above:RESULTS CALLED TO CHARLENE CERDA [facility] BY Vidya Valentine at 1126 TBH INR7.04Critically highNOMS HealthcareComment on above:RESULTS CALLED TO CHARLENE CERDA [facility] BY Vidya Valentine at 1127 DESIRED INR: 2.0-3.0 CONDITIONS NOT LISTED BELOW 2.5-3.5 FOR PROSTHETIC HEART VALVE REPLACEMENT 2.5-3.5 RECURRENT THROMBOSIS CLINISYNCNOMS HealthcareITPon 19-83-4997[place] [address] Cardiac Rehab Report Signed Patient: ALEX ANDERSON MR#: [id number] : 1945 Acct:[id number] Age/Sex: 78 / M ADM Date: 06/25/24 Loc: CR Attending Dr: TEO AL Ordering Physician: Martita Garnica D.O. Date of Service: 06/25/24 Procedure(s): ITP Accession Number(s): [id number] cc: [facility] Test Date: 2024-06-25 Pat Name: ALEX ANDERSON Department: Room: Gender: Blender Operator: : Requested By: Order Number: [id number] Reading MD: MARTITA GARNICA Interpretive Statements Session Date: Electronically Signed On 06-25-2024 18:17:01 EST by MARTITA GARNICA Dictated By: Martita Garnica D.O. Signed By: 06/25/24181606/25/241816 DD/ 1308 TD/TT: Authors Motivational:ALEMadiologbere, Radiologist, - 06/25/2024 [place] [address] Cardiac Rehab Report Signed Patient: ALEX ANDERSON MR#: [id number] : 1945 Acct:[id number] Age/Sex: 78 / M ADM Date: 06/25/24 Loc: CR Attending Dr: TEO AL Ordering Physician: Martita Garnica D.O. Date of Service: 06/25/24 Procedure(s): ITP Accession Number(s): [id number] cc: [facility] Test Date: 2024-06-25 Pat Name: ALEX ANDERSON Department: Room: Gender: Blender Operator: : Requested By: Order Number: [id number] Reading MD: MARTITA GARNICA Interpretive Statements Session Date: Electronically Signed On 06-25-2024 18:17:01 EST by MARTITA GARNICA Dictated By: Martita Garnica D.O. Signed By: 06/25/24181606/25/241816 DD/ 1308 TD/TT: Authors Motivational: MARSHAL HealthcareRadiology Study observation (narrative)KATH HealthcareITPOrdered By: Radiologist Radiology on 40-99-1257RBVY Healthcare Work Phone: Urology Office/Clinic Noteon 82-40-8616Ndcnjty Office/Clinic NoteUrology Office/Clinic Note HPI Staff 4 wk cath change. History of Present Illness I have reviewed and verified the staff HPI to be accurate for this encounter. Portions of this record may have been created with voice recognition artificial intelligence software, specifically [employer], [employer] and or [employer]. Substitutions may have occurred due to the inherent limitations of voice recognition and artificial intelligence software. Physical Exam General: Well developed, well nourished, in no acute distress. Here w/ today who does assist in providing some of his history. Assessment/Plan PRW pt 1. Gross hematuria (R31.0: Gross hematuria) [facility] ER 04/28/2024 with complaints of a [...] virus vaccine, inactivated 03/26/2023 Recorded SARS-CoV-2 (COVID-19) mRNAMUL.ORD![id number] 03/29/2022 Recorded influenza virus vaccine, inactivated 03/16/2022 Recorded influenza virus vaccine, inactivated 03/06/2022 Recorded SARSCoV2 mRNA (more content not included)...[facility] Comment on above:Result Comment: Electronically Signed By: TC Boles APRN, [place] X\.br\Date and Time Signed: 06/07/24 10:43 ESTAmbulatory Visit Summaryon 10-04-8003Yeblktwrck Visit SummaryAmbulatory Visit Summary ALEX ANDERSON :1945 [...] HEATHER OMALLEY PA-C Where: [facility] [address] [place] [address]- Friday 2:00 PM EDT With: Katia SAMUELS MD Where: [facility] [address] [place] [address]- Medications What How Much When Instructions Unchanged [...] you for choosing us for your care. The Jewish HospitalITPon 54-36-8859[place] [address] Cardiac Rehab Report Signed Patient: ALEX ANDERSON MR#: [id number] : 1945 Acct:[id number] Age/Sex: 78 / M ADM Date: 05/25/24 Loc: CR Attending Dr: TEO AL Ordering Physician: Martita Garnica D.O. Date of Service: 05/25/24 Procedure(s): ITP Accession Number(s): [id number] cc: [facility] Test Date: 2024-05-25 Pat Name: ALEX ANDERSON Department: Room: - Gender: Male Blender Operator: : 1945 Requested By: MARTITA GARNICA Order Number: [id number] Reading MD: MARTITA GARNICA Interpretive Statements Session Date: Electronically Signed On 05-26-2024 8:06:21 EST by MARTITA GARNICA Dictated By: Martita Garnica D.O. Signed By: 05/26/24 0806 05/26/24805 DD/ 075 TD/TT: Authors Motivational:ALEMadiolIker brown MD - 05/26/2024 [place] [address] Cardiac Rehab Report Signed Patient: ALEX ANDERSON MR#: [id number] : 1945 Acct:[id number] Age/Sex: 78 / M ADM Date: 05/25/24 Loc: CR Attending Dr: TEO AL Ordering Physician: Martita Garnica D.O. Date of Service: 05/25/24 Procedure(s): ITP Accession Number(s): [id number] cc: [facility] Test Date: 2024-05-25 Pat Name: ALEX ANDERSON Department: Room: - Gender: Male Blender Operator: : 1945 Requested By: MARTITA GARNICA Order Number: [id number] Reading MD: MARTITA GARNICA Interpretive Statements Session Date: Electronically Signed On 05-26-2024 8:06:21 EST by MARTITA GARNICA Dictated By: Martita Garnica D.O. Signed By: 05/26/24 0806 05/26/24805 DD/ 075 TD/TT: Authors Motivational: MARSHAL MadisonITPOrdered By: Radiologist Radiology on 09-16-4827TE[facility] Work Phone: ITPon [phone] Study observation (narrative)MARSHAL MadisonAlanine Aminotransferaseon 09-00-8252ZTN [Catalytic activity/Vol]12 U/LNormalThe [facility] Physician GroupComment on above: Performed By: #### PTT, PT #### [address] Cortez StreetAlanine aminotransferase [Enzymatic activity/volume] in Serum or PlasmaOrdered By: Teo Al on 22-94-3063EHX [Catalytic activity/Vol]Alanine aminotransferase [Enzymatic activity/volume] in Serum or PlasmaKeenan Private HospitalAspartate Amino Transferaseon 84-40-2460IXL [Catalytic activity/Vol]13 U/NOgijdd04-61Fxh [facility] Physician GroupComment on above:Performed By: #### PTT, PT #### [facility] [address] [place] [address] USAAspartate aminotransferase [Enzymatic activity/volume] in Serum or PlasmaOrdered By: Teo Al on 34-71-7351XIL [Catalytic activity/Vol]Aspartate aminotransferase [Enzymatic activity/volume] in Serum or Zbcpek81-08MdjizhuseKeenan Private HospitalBasic Metabolic Panelon 05-21-2024 Anion gap [Moles/Vol]14.7 mmol/LNormal6.0-15.0The [facility] Comment on above:Performed By: #### PTT, PT #### [place] [address] USACalcium [Mass/Vol]9.1 mg/dLNormal8.6-10.3The [facility] Physician GroupComment on above:Performed By: #### PTT, PT #### [facility] [address] [place] [address] USAChloride [Moles/Vol]105 mmol/BZclcyb65-673Wmi [facility] Physician GroupComment on above:Performed By: #### PTT, PT #### [place] [address] USACO2 [Moles/Vol]27.8 mmol/EYntihf88.0-31.0The [facility] Physician GroupComment on above:Performed By: #### PTT, PT #### [facility] [address] [place] [address] USACreatinine [Mass/Vol]2.20 mg/dLHigh0.70-1.30The [facility] Physician GroupComment on above:Performed By: #### PTT, PT #### [facility] [address] [place] [address] USAEstimated GFR29.538 mL/MinNormalThe [facility] Physician GroupComment on above:Performed By: #### PTT, PT #### [facility] [address] [place] [address] USAGlucose [Mass/Vol]124 mg/aLCnai31-289Trm [facility] Physician GroupComment on above:Result Comment: Random Glucose Reference Range is dependent on time and content of last meal. Glucose of more than 200 mg/dL in a nonstressed, ambulatory subject supports the diagnosis of Diabetes Mellitus. ADA recommended reference rangePerformed By: #### PTT, PT #### [facility] [address] [place] [address] USAPotassium [Moles/Vol]4.5 mmol/LNormal3.5-5.1The [facility] Physician GroupComment on above:Performed By: #### PTT, PT #### [facility] [address] [place] [address] USASodium [Moles/Vol]143 mmol/EHzeibf728-566Uff [facility] Physician GroupComment on above:Performed By: #### PTT, PT #### [facility] [address] [place] [id number] USAUrea nitrogen [Mass/Vol]34 mg/dLHigh7-25The [facility] Physician GroupComment on above:Performed By: #### PTT, PT #### [facility] [address] [place] [address] USABasophils Auto (Bld) [#/Vol]Ordered By: Teo Al on 96-24-7480Ohxdvidpd (Bld) [#/Vol]Automated basophil count0.0-0.2FBerger HospitalBasophils/100 WBC Auto (Bld)Ordered By: Teo Al on 23-39-6777Cejbnfemj/100 WBC (Bld)Automated basophil %.[facility] Private HospitalCalcium [Mass/volume] in Serum or PlasmaOrdered By: Teo Al on 11-91-0612Snarnzt [Mass/Vol]Calcium [Mass/volume] in Serum or Plasma8.6-10.3 [facility] HospitalCarbon dioxide, total [Moles/volume] in Serum or PlasmaOrdered By: Teo Al on 31-50-6328JZ7 [Moles/Vol]Carbon dioxide, total [Moles/volume] in Serum or Qnhscn70.0-31.0[facility] HospitalChloride [Moles/volume] in Serum or PlasmaOrdered By: Teo Al on 30-10-8051Ewhjtuwq [Moles/Vol]Chloride [Moles/volume] in Serum or Mjjijf21-909 [facility] HospitalCholesterol [Mass/volume] in Serum or Plasma Ordered By: Teo Al on 18-46-7733Ywzonvssyeg [Mass/Vol]Cholesterol [Mass/volume] in Serum or PhqbvtHnw898-987SenmggcdrKeenan Private Hospital Comment on above:Chol less than 200 mg/dl low riskChol 201-239 mg/dl borderline riskChol 240 mg/dl and greater high riskCholesterol in HDL [Mass/volume] in Serum or PlasmaOrdered By: Teo Al on 11-02-8009Fawpauvohtk in HDL [Mass/Vol]Serum or plasma high density lipoprotein (HDL) cholesterol measurement 23-[facility]an Private HospitalComment on above:HDL CHOL ATP-III CLASSIFICATION Cardiovascular RiskHDL > or equal to 60 mg/dL LOWHDL < 40 mg/dL HIGHCholesterol in LDL Calc [Mass/Vol]Ordered By: Teo Al on 05-21-2024 Cholesterol in LDL [Mass/Vol]Cholesterol in LDL [Mass/volume] in Serum or Plasma by calculationKeenan Private HospitalComment on above:LDL ATP III CLASSIFICATIONLDL less than 100 mg/dL OptimalLDL 100-129 mg/dL Near or above qgwrmiyOJR068-435 mg/dL Borderline highLDL 160-189 mg/dL HighLDL greater than 189 mg/dL Very highCholesterol in VLDL Calc [Mass/Vol]Ordered By: Teo Al on 03-24-9963Mfjxapaipgs in VLDL [Mass/Vol]Cholesterol in VLDL [Mass/volume] in Serum or Plasma by calculationKeenan Private HospitalComplete Blood Count Auto Diffon 65-83-2926Stmuadyjt (Bld) [#/Vol]0.1 10*3/uLNormal0.0-0.2The [facility] Physician GroupComment on above:Result Comment: PERFORMED BY: [address] [place] [address] PATHOLOGIST MANAGER FINANCIAL SERVICES MOHAMED M EL-FAKHARANY M.D.Performed By: #### PTT, PT #### [facility] [address] [place] [id number] USABasophils/100 WBC (Bld)1.0 %Normal.The [facility] Physician GroupComment on above:Performed By: #### PTT, PT #### [facility] [address] [place] [address] USAEosinophils (Bld) [#/Vol]0.2 10*3/uLNormal0.0-0.45The [facility] Physician GroupComment on above:Performed By: #### PTT, PT #### [facility] [address] [place] [id number] USAEosinophils/100 WBC (Bld)3.3 %Normal.The [facility] Physician GroupComment on above:Performed By: #### PTT, PT #### [place] [address] USAErythrocyte distribution width (RBC) [Ratio]18.1 %High 12.0-14.8The [facility] Physician GroupComment on above:Performed By: #### PTT, PT #### [place] [address] USAHematocrit (Bld) [Volume fraction]30.3 %Low38.8-50.0The [facility] Physician GroupComment on above:Performed By: #### PTT, PT #### [place] [address] USAHemoglobin (Bld) [Mass/Vol]9.5 g/dLLow13.0-17.0The [facility] Physician GroupComment on above:Performed By: #### PTT, PT #### [place] [address] USALymphocytes (Bld) [#/Vol]1.3 10*3/uLNormal1.00-4.8The [facility] Physician GroupComment on above:Performed By: #### PTT, PT #### [place] [address] USALymphocytes/100 WBC (Bld)22.2 %Normal.The [facility] Physician GroupComment on above:Performed By: #### PTT, PT #### [facility] [address] [place] [address] USAH (RBC) [Entitic mass]23.3 pgLow27.5-35.2The [facility] Physician GroupComment on above:Performed By: #### PTT, PT #### [facility] [address] [place] [address] USAMCV (RBC) [Entitic vol]74.4 fLLow83.5-101The [facility] Physician GroupComment on above:Performed By: #### PTT, PT #### [facility] [address] [place] [address] USAMean Corpuscular HGB Conc31.3 g/dLLow32.5-35.6The [facility] Physician GroupComment on above:Performed By: #### PTT, PT #### [place] [address] USAMonocytes (Bld) [#/Vol]0.6 10*3/uLNormal0.0-0.8The [facility] Physician GroupComment on above:Performed By: #### PTT, PT #### [facility] [address] [place] [address] USAMonocytes/100 WBC (Bld)10.2 %Normal.The [facility] [facility] Physician GroupComment on above:Performed By: #### PTT, PT #### [facility] [address] [place] [address] USANeutrophils (Bld) [#/Vol]3.8 10*3/uLNormal1.8-7.7The [facility] Physician GroupComment on above:Performed By: #### PTT, PT #### [place] [address] USANeutrophils/100 WBC (Bld)63.3 %Normal.The [facility] Physician GroupComment on above:Performed By: #### PTT, PT #### [facility] [address] [place] [address] USANRBC%0.1 /100{WBC}Normal0-0.5The [facility] Comment on above:Performed By: #### PTT, PT #### [facility] [address] [place] [address] USAPlatelet mean volume (Bld) [Entitic vol]8.1 fLNormal 6.6-10.1The [facility] Physician GroupComment on above:Performed By: #### PTT, PT #### [facility] [address] [place] [address] USAPlatelets (Bld) [#/Vol]315 10*3/qHDabnph345-469Uys [facility] Physician GroupComment on above:Performed By: #### PTT, PT #### [facility] [address] [place] [address] USARBC (Bld) [#/Vol]4.07 10*6/uLNormal3.90-5.60The [facility] Physician GroupComment on above:Performed By: #### PTT, PT #### [facility] [address] [place] [address] USAWBC (Bld) [#/Vol]6.1 10*3/uLNormal4.1-10.5The [facility] Physician GroupComment on above:Performed By: #### PTT, PT #### [place] [address] USACreatinine [Mass/volume] in Serum or PlasmaOrdered By: Teo Al on 82-79-1779Lqkvtxklgn [Mass/Vol]Creatinine [Mass/volume] in Serum or PlasmaHigh0.70-1.30[facility] Private HospitalECG 12 Leadon 40-74-6950MEM revealed normal sinus rhythm, IVCD, diffuse repolarization abnormalities, septal myocardial infarction of undetermined age, abnormal ECGCPACSGeorgetown Behavioral Hospital Work Phone: Eosinophils Auto (Bld) [#/Vol]Ordered By: Teo Al on 79-49-5610Ztrbsugawca (Bld) [#/Vol]Automated eosinophil count0.0-0.45 [facility] HospitalEosinophils/100 WBC Auto (Bld)Ordered By: Teo Al on 39-10-3052Dicektmqkdh/100 WBC (Bld)Automated eosinophil %. [facility] HospitalErythrocyte distribution width Auto (RBC) [Ratio]Ordered By: Teo Al on 63-84-6692Qhaucmmhwea distribution width (RBC) [Ratio]Erythrocyte distribution width [Ratio] by Automated countHigh 12.0-14.8[facility] HospitalGlucose [Mass/volume] in Serum or PlasmaOrdered By: Teo Al on 81-40-7989Ozwsheo [Mass/Vol]Glucose [Mass/volume] in Serum or GhqpgzWblr46-544GourjyiziKeenan Private Hospital Comment on above:ADA recommended reference rangeRandom Glucose Reference Range is dependent on time and content of last meal. Glucose of more than 200 mg/dL in a nonstressed, ambulatory subject supports the diagnosisof Diabetes Mellitus. Hematocrit Auto (Bld) [Volume fraction]Ordered By: Teo Al on 05-21-2024 Hematocrit (Bld) [Volume fraction]Hematocrit [Volume Fraction] of Blood by Automated fioyxFut45.8-50.0[facility] HospitalHemoglobin [Mass/volume] in BloodOrdered By: Teo Al on 57-62-6852Feotuflfbs (Bld) [Mass/Vol]Hemoglobin [Mass/volume] in SvbfgDwj12.0-17.0[facility] HospitalLeukocytes [#/volume] corrected for nucleated erythrocytes in Blood by Automated counOrdered By: Teo Al on 19-98-3145YKV corrected for nucl RBC Auto (Bld) [#/Vol]Leukocytes [#/volume] corrected for nucleated erythrocytes in Blood by Automated coun4.1-10.5FBerger Hospital Lipid Panelon 63-28-3763Cbgzivvitff [Mass/Vol]89 mg/hHTcq032-489Pnn [facility] Physician [facility] HospitalComment on above:Result Comment: Chol less than 200 mg/dl low risk Chol 201-239 mg/dl borderline risk Chol 240 mg/dl and greater high riskPerformed By: #### PTT, PT #### [facility] [address] [place] [address] USACholesterol in HDL [Mass/Vol]41 mg/gKDnsgzq78-51Tvi [facility] Physician GroupComment on above:Result Comment: HDL CHOL ATP-III CLASSIFICATION Cardiovascular Risk HDL > or equal to 60 mg/dL LOW HDL < 40 mg/dL HIGHPerformed By: #### PTT, PT #### [facility] [address] [place] [address] USACholesterol.total/Cholesterol in HDL [Mass ratio]2.2 {ratio}Normal<5.0The [facility] Physician GroupComment on above:Performed By: #### PTT, PT #### [facility] [address] [place] [address] USALDL Cholesterol,Gcarvpzclh68 mg/dLNormal0-100The [facility] Physician GroupComment on above:Result Comment: LDL ATP III CLASSIFICATION LDL less than 100 mg/dL Optimal LDL 100-129 mg/dL Near or above optimal LDL 130-159 mg/dL Borderline high LDL 160-189 mg/dL High LDL greater than 189 mg/dL Very highPerformed By: #### PTT, PT #### [facility] [address] [place] [address] USATriglyceride w/Ktczah24 mg/dLNormal0-149The [facility] Physician GroupComment on above:Result Comment: TRIG ATP III CLASSIFICATION TRIG less than 150 mg/dL Normal TRIG 150-199 mg/dL Borderline high TRIG 200-500 mg/dL High TRIG greater than 500 mg/dL Very high Standard traceable to the Center for Disease Conrtrol and Prevention (CDC) test method.Performed By: #### PTT, PT #### [facility] [address] [place] [address] USAVLDL OVFWCIYKJRL99 mg/dLNormalThe [facility] Physician GroupComment on above:Performed By: #### PTT, PT #### [facility] [address] [place] [address] USALymphocytes Auto (Bld) [#/Vol]Ordered By: Teo Al on 48-57-2322Zbaxqopmknd (Bld) [#/Vol]Lymphocytes [#/volume] in Blood by Automated count1.00-4.8[facility] Private HospitalLymphocytes/100 WBC Auto (Bld)Ordered By: Teo Al on 76-74-3487Rlxgcmbafcs/100 WBC (Bld) Lymphocytes/100 leukocytes in Blood by Automated count.[facility] Private HospitalMCH Auto (RBC) [Entitic mass]Ordered By: Teo Al on 26-40-6855HGY (RBC) [Entitic mass]MCH [Entitic mass] by Automated countLow 27.5-35.2FBerger HospitalMCHC Auto (RBC) [Mass/Vol]Ordered By: Teo Al on 29-01-5266RRLP (RBC) [Mass/Vol]MCHC [Mass/volume] by Automated fdnxoJjp36.5-35.6FBerger HospitalMCV Auto (RBC) [Entitic vol] Ordered By: Teo Al on 72-85-5552PSL (RBC) [Entitic vol]MCV [Entitic volume] by Automated avmcyOmm86.5-101[facility] Private HospitalMonocytes Auto (Bld) [#/Vol]Ordered By: Teo Al on 14-13-7671Zulneinef (Bld) [#/Vol]Automated blood monocyte count0.0-0.8[facility] Monocytes/100 WBC Auto (Bld)Ordered By: Teo Al on 05-21-2024 Monocytes/100 WBC (Bld)Automated monocyte %.[facility] Neutrophils Auto (Bld) [#/Vol]Ordered By: Teo Al on 05-21-2024 Neutrophils (Bld) [#/Vol]Neutrophils [#/volume] in Blood by Automated count 1.8-7.7FBerger HospitalNeutrophils/100 WBC Auto (Bld)Ordered By: Teo Al on 01-32-7694Qbzwnlsfokk/100 WBC (Bld)Automated neutrophil %. [facility] HospitalNo Panel InformationOrdered By: Teo Al on 11-74-5588Aossvdmqp GFR (CKD-EPI)29.538 mL/MinKeenan Private HospitalPharmacy Creatinine Clearance (ChemN/[facility] Nucleated erythrocytes [Presence] in Blood by Automated countOrdered By: Teo Al on 61-22-8605Kbjzvlibf RBC Auto Ql (Bld)Nucleated erythrocytes [Presence] in Blood by Automated count0-0.5FBerger Hospital Platelet mean volume Auto (Bld) [Entitic vol]Ordered By: Teo Al on 18-28-0800Avcozjlf mean volume (Bld) [Entitic vol]Platelet mean volume [Entitic volume] in Blood by Automated count6.6-10.1FBerger Hospital Platelets Auto (Bld) [#/Vol]Ordered By: Teo Al on 01-24-8708Iswqzqfca (Bld) [#/Vol]Platelets [#/volume] in Blood by Automated -086VneaicmobKeenan Private HospitalPotassium [Moles/volume] in Serum or PlasmaOrdered By: Teo Al on 40-84-2249Dcoekuuks [Moles/Vol]Potassium [Moles/volume] in Serum or Plasma3.5-5.1FBerger HospitalRBC Auto (Bld) [#/Vol] Ordered By: Teo Al on 62-88-7942GOC (Bld) [#/Vol]Erythrocytes [#/volume] in Blood by Automated count3.90-5.60[facility] Health Springfielderum or plasma anion gap determinationOrdered By: Teo Al on 53-75-1953Jogwh gap [Moles/Vol]Serum or plasma anion gap determination6.0-15.0[facility] Health Springfielderum or plasma total cholesterol/high density lipoprotein (HDL) cholesterol mass ratOrdered By: Teo Al on 05-21-2024 Cholesterol.total/Cholesterol in HDL [Mass ratio]Serum or plasma total cholesterol/high density lipoprotein (HDL) cholesterol mass rat<5.0[facility] Springfieldodium [Moles/volume] in Serum or PlasmaOrdered By: Teo Al on 73-21-9625Hkoepl [Moles/Vol]Sodium [Moles/volume] in Serum or Ulsqhl393-537BsoihpmuiKeenan Private HospitalThyroid Stimulating Hormoneon 52-02-5163XYM Qn0.11 m[IU]/LLow0.45-5.33The [facility] Physician GroupComment on above:Result Comment: PERFORMED BY: [facility] [address] [place] [address] PATHOLOGIST MANAGER [employer]CIAL SERVICES ED CRUZ M.D.Performed By: #### PTT, PT #### [facility] [address] [place] [address] USAThyrotropin [Units/volume] in Serum or PlasmaOrdered By: Teo Al on 35-56-1723ZLP QnThyrotropin [Units/volume] in Serum or Plasma Low0.45-5.33[facility] HospitalTriglyceride [Mass/volume] in Serum or PlasmaOrdered By: Teo Al on 29-65-7454Poycpgzubohp [Mass/Vol] Triglyceride [Mass/volume] in Serum or Plasma0-149[facility] Private HospitalComment on above:TRIG ATP III CLASSIFICATIONTRIG less than 150 mg/dL NormalTRIG 150-199 mg/dL Borderline highTRIG 200-500 mg/dL High TRIG greater than 500 mg/dL Very highStandard traceable to the Center for Disease Conrtrol and Prevention (CDC) test method.Urea nitrogen [Mass/volume] in Serum or Plasma Ordered By: Teo Al on 97-35-1462Fbmx nitrogen [Mass/Vol]Urea nitrogen [Mass/volume] in Serum or PlasmaHigh7-25[facility] HospitalWBC Auto (Bld) [#/Vol]Ordered By: Teo Al on 15-02-0789PTS (Bld) [#/Vol] Leukocytes [#/volume] in Blood by Automated count4.1-10.5FBerger HospitalITPon 33-57-3458Mkg [place] [address] Cardiac Rehab Report Signed Patient: ALEX ANDERSON MR#: [id number] : 1945 Acct:[id number] Age/Sex: 78 / M ADM Date: 04/26/24 Loc: CR Attending Dr: TEO AL Ordering Physician: Martita Garnica D.O. Date of Service: 04/26/24 Procedure(s): ITP Accession Number(s): [id number] cc: [facility] Test Date: 2024-04-26 Pat Name: ALEX ANDERSON Department: Room: - Gender: Male Blender Operator: : 1945 Requested By: MARTITA GARNICA Order Number: [id number] Reading MD: MARTITA GARNICA Interpretive Statements Session Date: Electronically Signed On 04-27-2024 20:20:06 EST by MARTITA GARNICA Dictated By: Martita Garnica D.O. Signed By: 04/27/24201904/27/242019 DD/ 18 TD/TT: Authors Motivational:ALEMadiologIker blackburn, - 04/27/2024 [place] [address] Cardiac Rehab Report Signed Patient: ALEX ANDERSON MR#: [id number] : 1945 Acct:[id number] Age/Sex: 78 / M ADM Date: 04/26/24 Loc: CR Attending Dr: TEO AL Ordering Physician: Martita Garnica D.O. Date of Service: 04/26/24 Procedure(s): ITP Accession Number(s): [id number] cc: [facility] Test Date: 2024-04-26 Pat Name: ALEX ANDERSON Department: Room: - Gender: Male Blender Operator: : 1945 Requested By: MARTITA GARNICA Order Number: [id number] Reading MD: MARTITA GARNICA Interpretive Statements Session Date: Electronically Signed On 04-27-2024 20:20:06 EST by MARTITA GARNICA Dictated By: Martita Garnica D.O. Signed By: 04/27/24201904/27/242019 DD/ 18 TD/TT: Authors Motivational: MARSHAL MadisonITPOrdered By: Radiologist Radiology on 64-19-9720[employer] Work Phone: ITPon 59-42-1457Xulqkdzue Study observation (narrative)MARSHAL HealthcareUroVysion Fish and Urine Cyto ([facility])on 04-12-2024 UVFISH & UCDiagnosis InfoInvalid Interpretation [facility] Comment on above:Result Comment: A:Urine,Bladder Wash:Bladder Wash [...] with cytology and cystoscopy results. * CPT: 97985, 87403. Microscopic Notes - Microscopic Notes - Abnormal cells 9p21 deletions: Abnormal cells aneploid events: Total cells analyzed: 25 Hematuria: Gross Description Site ID:A color Colorless fixative Alcohol Received 90 mls of slightly cloudy colorless fluid with the patient's name and, Bladder Wash on the vial. Electronically signed by : on: 04/12/2024 16:53:27Performed By: #### [id number] #### [facility] [address] [place] [address]Otvpldjqsh Visit Summaryon 45-53-3713Ayridgmvam Visit Summary Ambulatory Visit Summary ALEX ANDERSON [...] Urology [address], [place] [address]- Medications What How Much When Instructions Unchanged [...] care provider may (more content not included)...Normal [facility] 20-28-5551ZcidllwqqSxreshoga From: Dana Rivas To: EU - Recalls Samuels; Sent: 02/20/2024 14:44:26 EDT Show up: 07/24/2024 14:44:00 EST Subject: Cysto/FISH/cytol, cath chng Due Date/Time: 08/16/2024 14:44:00 EDT Reminder/Recall Patient is due in September 2024 for 6 month cysto/fish/cytol, cath change (bt ck) Patient sched 10/05/24NoMadison HealthUroVysion Fish and Urine Cyto ([facility])on 71-04-2720ITIP Method of ExtractionBladder WashNoMadison HealthComment on above:Performed By: #### [id number] #### [facility] [address] [place], [place] [address]YCVW Number of Pbtn6Qdyigjo Interpretation CodeFulton County Health CenterComment on above:Performed By: #### [id number] #### [facility] [address] [place], [place] [address]CDPP SpecimenBladder WashThe Jewish Hospital Comment on above:Performed By: #### [id number] #### [facility] [address] [place], [place] [address]HTOL Type of ServiceTechnical OnlyThe Jewish HospitalComment on above:Performed By: #### [id number] #### [facility] [address] [place], [place] [address]Fwmpkou Office/Clinic Noteon 00-87-4672Qvzyglj Office/Clinic NoteUrology Office/Clinic Note Chief Complaint cysto [...] going to start monthly zapien changes. [1] [facility] ER on 09/15/22 due to catheter clogged. Pt was diagnosed w/ UTI and treated w/ Cipro 500 mg BIDfor x 7 days. Attempted urocuff, pt was unable to void, PVR 348 cc, cath placed 10/04/22. [2] Pt has been in the ER multiple times due to issues with Zapien. Most recently, pt presented to [facility] ER 09/29/23 and 09/30/23 due to catheter not draining. [3] Cath changed IO today, see procedure section. 3. BPH with urinary obstruction (N40.1: Benign prostatic hyperplasia with lower urinary tract symptoms) S/p Rezum 06/10/23. Not taking any BPH meds. Maintained with chronic zapien, see #2. Follow-up With When Contact Information Katia SAMUELS MD, [facility] [address], [place] [address]- Additional Instructions: 6 mos surveillance cysto/bt ck/FISH/cytol Patient Education Indwelling Urinary Catheter Insertion, Care After Cancer Screening for Males I, Citlalli Rushing, personally scribed for Dr. Samuels on 04/06/2024 11:35:18. . Documentation recorded by the scribe, Citlalli Rushing, accurately reflects the services(s) I performed and decisions made by me. Authenticated by Dr. Samuels on 04/06/2024 11:36:29. Problem List/Past Medical History (more content not included)...The Jewish HospitalComment on above: Result Comment: Electronically Signed By: Katia SAMUELS MD\.br\Date and Time Signed: 04/06/24 11:36 EST\.br\Electronically Co-Signed By: Citlalli Rushing\.br\Date and Time Co-Signed: 04/06/24 11:35 ESTITPon 04-53-2238Yhc [address] [address] Cardiac Rehab Report Signed Patient: ALEX ANDERSON MR#: [id number] : 1945 Acct:[id number] Age/Sex: 78 / M ADM Date: 03/31/24 Loc: CR Attending Dr: TEO AL Ordering Physician: Martita Garnica D.O. Date of Service: 03/31/24 Procedure(s): ITP Accession Number(s): [id number] cc: [facility] Test Date: 2024-03-31 Pat Name: ALEX ANDERSON Department: Room: - Gender: Male Blender Operator: : 1945 Requested By: MARTITA GARNICA Order Number: [id number] Silverio MD: MARTITA GARNICA Interpretive Statements Session Date: Electronically Signed On 03-31-2024 20:54:52 EST by MARTITA GARNICA Dictated By: Martita Garnica D.O. Signed By: 03/31/24205403/31/242054 DD/ 1239 TD/TT: Authors Motivational:ALEMadiolIker brown, - 03/31/2024 [place] [address] Cardiac Rehab Report Signed Patient: ALEX ANDERSON MR#: [id number] : 1945 Acct:[id number] Age/Sex: 78 / M ADM Date: 03/31/24 Loc: CR Attending Dr: TEO AL Ordering Physician: Martita Garnica D.O. Date of Service: 03/31/24 Procedure(s): ITP Accession Number(s): [id number] cc: [facility] Test Date: 2024-03-31 Pat Name: ALEX ANDERSON Department: Room: - Gender: Male Blender Operator: : 1945 Requested By: MARTITA GARNICA Order Number: [id number] Silverio MD: MARTITA GARNICA Interpretive Statements Session Date: Electronically Signed On 03-31-2024 20:54:52 EST by MARTITA GARNICA Dictated By: Matrita Garnica D.O. Signed By: 03/31/24205403/31/242054 DD/ 1239 TD/TT: Authors Motivational: MARSHAL HealthcareRadiology Study observation (narrative)MARSHAL HealthcareITPOrdered By: Radiologist Radiology on 01-32-0589Z[facility] Work Phone: ITPon 85-41-2217[place] [address] Cardiac Rehab Report Signed Patient: ALEX ANDERSON MR#: [id number] : 1945 Acct:[id number] Age/Sex: 78 / M ADM Date: 03/24/24 Loc: CR Attending Dr: TEO AL Ordering Physician: Martita Garnica D.O. Date of Service: 03/24/24 Procedure(s): ITP Accession Number(s): [id number] cc: [facility] Test Date: 2024-03-24 Pat Name: ALEX ANDERSON Department: Room: - Gender: Male Blender Operator: : 1945 Requested By: MARTITA GARNICA Order Number: [id number] Silverio MD: MARTITA GARNICA Interpretive Statements Session Date: Electronically Signed On 03-24-2024 23:29:20 EDT by MARTITA GARNICA Dictated By: Martita Garnica D.O. Signed By: 03/24/24232803/24/242328 DD/ 114 TD/TT: Authors Motivational:KROINAHRadiology, Radiologist, - 03/24/2024 [place] [address] Cardiac Rehab Report Signed Patient: ALEX ANDERSON MR#: [id number] : 1945 Acct:[id number] Age/Sex: 78 / M ADM Date: 03/24/24 Loc: CR Attending Dr: TEO AL Ordering Physician: Martita Garnica D.O. Date of Service: 03/24/24 Procedure(s): ITP Accession Number(s): [id number] cc: [facility] Test Date: 2024-03-24 Pat Name: ALEX ANDERSON Department: Room: - Gender: Male Blender Operator: : 1945 Requested By: MARTITA GARNICA Order Number: [id number] Silverio CASILLAS: MARTITA GARNICA Interpretive Statements Session Date: Electronically Signed On 03-24-2024 23:29:20 EDT by MARTITA GARNICA Dictated By: Martita Garnica D.O. Signed By: 03/24/24232803/24/242328 DD/ 114 TD/TT: Authors Motivational: MARSHAL HealthcareRadiology Study observation (narrative)NOMS HealthcareITPOrdered By: Radiologist Radiology on 80-95-5397ODYZ [facility] Work Phone: RT PULMONARY FUNCTION TESTon 20-31-90[address] [address] Respiratory Report Signed Patient: ALEX ANDERSON MR#: [id number] : 1945 Acct:[id number] Age/Sex: 78 / M ADM Date: 03/23/24 Loc: CARD Attending Dr: TEO AL Ordering Physician: TEO AL Date of Service: 03/23/24 Procedure(s): RT pulmonary function test Accession Number(s): [id number] cc: [facility] Test Date: 2024-03-23 Pat Name: ALEX ANDERSON Department: Room: - Gender: Male Blender Operator: Reymundo Alamo RRT : 1945 Requested By: 358 Order Number: [id number] Reading MD: Aayush Gallo Interpretive Statements Pulmonary [...] By: Aayush Gallo D.O. Signed By: 03/24/24 4915 DD/ 1259 TD/TT: Authors Motivational:TBHRadiology, MD Iker - 03/24/2024 [place] [address] Respiratory Report Signed Patient: ALEX ANDERSON MR#: [id number] : 1945 Acct:[id number] Age/Sex: 78 / M ADM Date: 03/23/24 Loc: CARD Attending Dr: TEO AL Ordering Physician: TEO AL Date of Service: 03/23/24 Procedure(s): RT pulmonary function test Accession Number(s): [id number] cc: [facility] Test Date: 2024-03-23 Pat Name: ALEX ANDERSON Department: Room: - Gender: Male Blender Operator: Reymundo Alamo RRT : 1945 Requested By: 358 Order Number: [id number] Reading MD: Aayush Gallo Interpretive Statements Pulmonary [...] Signed By: 03/24/24 1752 DD/ 1259 TD/TT: Authors Motivational: MARSHAL Ma PULMONARY FUNCTION TESTOrdered By: Radiologist Radiology on 06-75-4093[employer] Work Phone: aLL HEMOGLOBINon 44-93-2233Pxmjgsajjh (Bld) [Mass/Vol] 9.5 g/dLLow14.0 - 18.0 g/dLNOMS HealthcareInterpretation and review of laboratory resultsAbnoSelect Medical [facility] HealthcareCLINISYNCNOKLAHOMA SPINE [facility] HealthcareRT PULMONARY FUNCTION TESTon 57-23-5070Lpexxrqpv Study observation (narrative)[facility] No Panel InformationOrdered By: Rosalie Bailey on 47-01-3659Kioel Strep (POC) [facility] Private HospitalXR chest 2V*on 15-23-6227OY chest 2V*[facility] Main [place] [address] [place] [address] XRay Report Signed Patient: Alex Anderson MR#: [id number] : 1945 Acct:[id number] Age/Sex: 78 / M ADM Date: 03/08/24 Loc: XDUCLY Room: Type: [facility] Attending Dr: Rosalie Bailey APRN Copies to: [...] Corky Max M.D.03/08/2024 2:03 PM Dictation Location: [place] [address] Transcribed By: [facility] 03/08/24 140 Dictated By: Corky Max II, MD 03/08/24 140 Signed By: 03/08/24 140HealthPark [facility] Physician GroupALL HEMOGLOBINon 03-04-2024 Hemoglobin (Bld) [Mass/Vol]10.0 g/dLLow14.0 - 18.0 g/dLNOMS Healthcare Interpretation and review of laboratory resultsAbnormalFILLMORE COMMUNITY [facility] HealthcareCLINISYNC [facility] LawnReminderson 05-98-4184ThpxinoapFbfldtwip From: Dana Rivas To: EU - Recalls [...] was notified ok to keep cysto on 04/06/24.TriHealthECG 12 Leadon 39-04-3708NRS revealed normal sinus rhythm, left axis deviation, 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, QT prolongation, IVCDCPADoctors Hospital Work Phone: bacteria [Presence] in Urine by AutomatedOrdered By: Rob Almazan on 37-87-2697Jmbwiuxv Auto Ql (U)Rare [HPF]None Seen [facility] Private HospitalBilirubin Test strip Ql (U)Ordered By: Rob Almazan on 93-21-0995Jlswcidlf Ql (U)NegativeNegativeKeenan Private HospitalColor of Urine by AutoOrdered By: Rob Almazan on 67-70-1825Jryie (U)YellowNormalYellowKeenan Private HospitalComment on above:Order Comment: Name Collection Type:: Zapien CatheterPerformed By: #### ADDONUAPLUS, CUU #### [facility] [address] [place] [address] USADipstick and Microscopicon 11-16-2685Hsdgmdyu,UrineRare NormalNone SeenThe [facility] Physician GroupComment on above:Order Comment: Name Collection Type:: Zapien CatheterPerformed By: #### ADDONUAPLUS, CUU #### [facility] [address] [address] USABilirubin,UrineNegativeNormalNegativeThe [facility] Physician GroupComment on above:Order Comment: Name Collection Type:: Zapien CatheterPerformed By: #### ADDONUAPLUS, CUU #### [address] [address] USAGlucose Ql (U)NormalNormalNormalThe [facility] Physician GroupComment on above:Order Comment: Name Collection Type:: Zapien Catheter Performed By: #### ADDONUAPLUS, CUU #### [address] [address] USAHyaline Casts,UrineNoneNormal0-8The [facility] Physician GroupComment on above:Order Comment: Name Collection Type:: Zapien Catheter Performed By: #### ADDONUAPLUS, CUU #### [place] [id number] USAMucus,UrineRareNormalThe [facility] Physician GroupComment on above:Order Comment: Name Collection Type:: Zapien CatheterResult Comment: PERFORMED BY: [place] [address] PATHOLOGIST MANAGER FINANCIAL SERVICES OREN OWEN M.D.Performed By: #### ADDZACPLUS, CUU #### [address] [address] USANitrite,UrineNegativeNormalNegativeCedars Medical Center Physician GroupComment on above:Order Comment: Name Collection Type:: Zapien Catheter Performed By: #### ADDONUAPLUS, CUU #### [address] [address] USAOccult Blood,Urine2+HighNegativeThe [facility] Physician GroupComment on above:Order Comment: Name Collection Type:: Zapien CatheterResult Comment: PERFORMED BY: [place] [address] PATHOLOGIST MANAGER FINANCIAL SERVICES OREN OWEN M.D.Performed By: #### ADDONUAPLUS, CUU #### [place] [id number] USAProtein,UrineTraceHighNegativeCedars Medical Center Physician GroupComment on above:Order Comment: Name Collection Type:: Zapien Catheter Performed By: #### ADDONUAPLUS, CUU #### [facility] [address] [place] [address] USARBC,Qlsal70-10Zbrx0-2Pzk [facility] Physician GroupComment on above:Order Comment: Name Collection Type:: Zapien CatheterPerformed By: #### ADDONUAPLUS, CUU #### [facility] [address] [place] [address] USASpecificy [place],Urine1.813Myfdxs6.001-1.030[facility] Physician GroupComment on above:Order Comment: Name Collection Type:: Zapien CatheterPerformed By: #### ADDONUAPLUS, CUU #### [address] [address] USAUrobilinogen,Urine2 mg/dLHighNormalThe [facility] Physician GroupComment on above:Order Comment: Name Collection Type:: Zapien Catheter Performed By: #### ADDONUAPLUS, CUU #### [facility] [address] [place] [address] USAWBC CLUMP, UrineRareHighNone SeenCedars Medical Center Physician GroupComment on above:Order Comment: Name Collection Type:: Zapien Catheter Performed By: #### ADDONUAPLUS, CUU #### [facility] [address] [place] [address] USAWBC,Fxnwd67-39Vhyi0-6Qtk [facility] Physician GroupComment on above:Order Comment: Name Collection Type:: Zapien CatheterPerformed By: #### ADDONUAPLUS, CUU #### [facility] [address] [place] [address] USAECG 12 lead ECGon 14-68-3847IEK 12 lead ECGOHIO VALLEY [facility] Main [place] [address] [place] [address] Electrocardiograph Report Signed Patient: Alex Anderson MR#: [id number] [birth year] : 1945 Acct:[id number] Age/Sex: 78 / M ADM Date: 01/16/24 Loc: 4P Room: 8M6136-5 Type: ADM IN Attending Dr: Nas Pruett [...] Acute Anteroseptal infarct Lateral injury pattern ACUTE FL / STEMI Abnormal ECG When compared with ECG of 19-Jan-2024 07:09, Serial changes of Anteroseptal infarct present Confirmed by Misael Campbell ([id number]) on 01/23/2024 11:36:17 AM Referred By: Electronically Signed By: Misael Campbell Transcribed By: MUS Signed By Misael Campbell MD 01/23/[address] [place] [address] Physician GroupEpithelial cells.squamous [#/area] in Urine sediment by Automated countOrdered By: Rob Almazan on 72-19-0520Sciavasmfl cells.squamous Auto (Urine sed) [#/Area]N/[facility] SpringfieldErythrocytes [#/area] in Urine sediment by Automated countOrdered By: Rob Almazan on 48-32-1215YHZ Auto (Urine sed) [#/Area] 20-49 [HPF]High0-4FBerger HospitalGlucose [Mass/volume] in Urine by Test stripOrdered By: Rob Almazan on 00-79-6778Qlegxqj Test strip (U) [Mass/Vol]Normal mg/dLNormalKeenan Private Hospital Hemoglobin Test strip Ql (U)Ordered By: Rob Almazan on 01-23-2024 Hemoglobin Ql (U)2+HighNegativeKeenan Private HospitalHyaline casts [#/area] in Urine sediment by Automated countOrdered By: Rob Almazan on 37-48-4501Ltwwdwa casts Auto (Urine sed) [#/Area]None [LPF]0-8Keenan Private HospitalKetones [Presence] in Urine by Test stripOrdered By: Rob Almazan on 97-92-6871Yblvxmy Ql (U)NegativeNormalNegHolzer Medical Center – JacksonComment on above:Order Comment: Name Collection Type:: Zapien CatheterPerformed By: #### HETALUAPLUS, CUU #### [facility] [address] [id number] USALeukocyte clumps [Presence] in Urine by AutomatedOrdered By: Rob Almazan on 72-43-8000Ifdxyxovs clumps Auto Ql (U)Rare [LPF]High None SeenKeenan Private HospitalLeukocyte esterase [Presence] in Urine by Test stripOrdered By: Rob Almazan on 06-13-9028Nfphnvtwx esterase Test strip Ql (U)4+HighNegHolzer Medical Center – JacksonComment on above:Order Comment: Name Collection Type:: Zapien CatheterPerformed By: #### BLAKE, CUU #### [facility] [address] [id number] USALeukocytes [#/area] in Urine sediment by Automated count Ordered By: Rob Almazan on 18-47-5809JHE Auto (Urine sed) [#/Area]20-49 [HPF]High0-4FBerger HospitalMucus [Presence] in Urine by AutomatedOrdered By: Rob Almazan on 69-39-7183Sibkc Auto Ql (U)Rare [LPF][facility]an Private HospitalNitrite Test strip Ql (U)Ordered By: Rob Almazan on 91-95-1247Daqzvlw Ql (U)NegativeNegHolzer Medical Center – JacksonProtein Test strip (U) [Mass/Vol]Ordered By: Rob Almazan on 58-82-3188Lpqoiid (U) [Mass/Vol]Trace mg/dLHighNegSelect Medical Specialty Hospital - Youngstownpecific gravity Test strip (U) [Rel density]Ordered By: Rob Almazan on 65-38-0385Irrqblkb gravity (U) [Rel density]1.022 1.001-1.030Keenan Private HospitalUrine Cultureon 47-88-0865Myrxpstl identified Cx Nom (U)ORGANISM: Enterococcus faecalis (O:ENTFAC) Fenton Count 30,000 Aerobic RITESH Charge (PCMIC38) SUSCEPTIBILITY [...] RESISTANT TO ALL B-LACTAM DRUGS. PERFORMED BY: [place] [address] PATHOLOGIST MANAGER FINANCIAL SERVICES OREN OWEN M.D.[facility] Physician GroupComment on above:Performed By: #### JHONNY LOZANO #### [facility] [address] [place], [place] [address]Urine appearanceOrdered By: Rob Almazan on 12-62-6189Fdtsweyfwi (U)ClearNoPremier Health Atrium Medical CenterComment on above:Order Comment: Name Collection Type:: Zapien CatheterPerformed By: #### BLAKE CUU #### [facility] [address] [place], [place] [address]Urine culture routineOrdered By: Rob Almazan on 89-17-7869Hooufbxq identified Cx Nom (U)Enterococcus faecalisAbProMedica Defiance Regional HospitalUrobilinogen Test strip (U) [Mass/Vol]Ordered By: Rob Almazan on 44-23-6481Wdulsqqrwgsi (U) [Mass/Vol]2 mg/dLHighNormal [facility] Private HospitalpH of Urine by Test stripOrdered By: Rob Almazan on 08-34-3130pI (U)5.5 [pH]Normal5.0-9.0[facility] Private HospitalComment on above:Order Comment: Name Collection Type:: Zapien Catheter Performed By: #### BLAKE, CUU #### [place] [address] USAAutomated basophil %Ordered By: Nas Pruett on 01-21-2024 Basophils/100 WBC (Bld)0.5 %Normal.[facility]enan Private HospitalComment on above:Performed By: #### PTT, PT #### [place] [address] USAAutomated basophil countOrdered By: Nas Pruett on 47-26-2993Goodivwqu (Bld) [#/Vol]0.0 10*3/uLNormal0.0-0.2FBerger HospitalComment on above:Result Comment: PERFORMED BY: [place] [address] PATHOLOGIST MANAGER [employer]CIAL SERVICES OREN OWEN M.D.Performed By: #### PTT, PT #### [place] [address] USAAutomated blood monocyte countOrdered By: Nas Pruett on 42-07-1306Phntqqqea (Bld) [#/Vol]1.4 10*3/uLHigh0.0-0.8[facility] HospitalComment on above:Performed By: #### PTT, PT #### [place] [address] USAAutomated eosinophil %Ordered By: Nas Pruett on 01-21-2024 Eosinophils/100 WBC (Bld)3.6 %Normal.[facility]an Private HospitalComment on above:Performed By: #### PTT, PT #### [place] [address] USAAutomated eosinophil countOrdered By: Nas Pruett on 01-21-0795Napawzctdve (Bld) [#/Vol]0.3 10*3/uLNormal0.0-0.45[facility] HospitalComment on above:Performed By: #### PTT, PT #### [place] [address] USAAutomated monocyte %Ordered By: Nas Preutt on 01-21-2024 Monocytes/100 WBC (Bld)16.0 %Normal.[facility]an Private HospitalComment on above:Performed By: #### PTT, PT #### [facility] [address] [place] [address] USAAutomated neutrophil %Ordered By: Nas Pruett on 01-21-2024 Neutrophils/100 WBC (Bld)64.3 %Normal.[facility]an Private HospitalComment on above:Performed By: #### PTT, PT #### [place] [address] USABasic Metabolic Panelon 84-45-7759Yshvftcvfn Clr Calc Gaayyvpz75.56NormBeraja Medical Institute Physician GroupComment on above:Result Comment: PERFORMED BY: [place] [address] PATHOLOGIST MANAGER [employer]CIAL SERVICES OREN OWEN M.D.Performed By: #### PTT, PT #### [place] [address] USAGFR/1.73 sq M.predicted MDRD (S/P/Bld) [Vol rate/Area] 43.613 mL/min/{1.73_m2}NormalThe [facility] Physician [facility] HospitalComment on above: Performed By: #### PTT, PT #### [address] [address] USACalcium [Mass/volume] in Serum or PlasmaOrdered By: Nas Pruett on 39-20-3883Oxhmbax [Mass/Vol]8.5 mg/dLLow8.6-10.3FBerger HospitalComment on above:Performed By: #### PTT, PT #### [place] [address] USACarbon dioxide, total [Moles/volume] in Serum or Plasma Ordered By: Nas Pruett on 84-05-0962HD1 [Moles/Vol]20.1 mmol/LLow21.0-31.0 [facility] HospitalComment on above:Performed By: #### PTT, PT #### [place] [address] USAChloride [Moles/volume] in Serum or PlasmaOrdered By: Nas Pruett on 45-13-8398Ahgphfve [Moles/Vol]107 mmol/ULwsbgz47-654HaaepjimtKeenan Private HospitalComment on above:Performed By: #### PTT, PT #### [place] [address] USAComplete Blood Count Auto Diffon 69-85-5520Nbkc Corpuscular HGB Conc32.9 g/uXGxkznv18.5-35.6The [facility] Physician GroupComment on above:Performed By: #### PTT, PT #### [place] [address] USANRBC%0.1 /100{WBC}Normal0-0.5The [facility] Physician Group Comment on above:Performed By: #### PTT, PT #### [place] [address] USACreatinine [Mass/volume] in Serum or PlasmaOrdered By: Nas Pruett on 70-93-3949Adszbapnin [Mass/Vol]1.59 mg/dLHigh0.70-1.30[facility] Private HospitalComment on above:Performed By: #### PTT, PT #### [place] [address] USAErythrocyte distribution width [Ratio] by Automated count Ordered By: Nas Pruett on 26-14-0901Racfaxsyjfz distribution width (RBC) [Ratio] 15.6 %High12.0-14.8[facility] Private HospitalComment on above:Performed By: #### PTT, PT #### [place] [address] USAErythrocytes [#/volume] in Blood by Automated countOrdered By: Nas Pruett on 21-65-0650EHH (Bld) [#/Vol]4.33 10*6/uLNormal3.90-5.60 [facility] HospitalComment on above:Performed By: #### PTT, PT #### [facility] [address] [id number] USAGlucose [Mass/volume] in Serum or PlasmaOrdered By: Nas Pruett on 30-69-3716Fgokldj [Mass/Vol]121 mg/lIJofy70-835JdwxapfkqKeenan Private HospitalComment on above:ADA recommended reference rangeRandom Glucose [...] reference rangePerformed By: #### PTT, PT #### [place] [id number] USAHematocrit [Volume Fraction] of Blood by Automated count Ordered By: Nas Pruett on 82-84-6419Umwktodttx (Bld) [Volume fraction]37.1 %Low 38.8-50.0[facility] Private HospitalComment on above:Performed By: #### PTT, PT #### [address] [address] USAHemoglobin [Mass/volume] in BloodOrdered By: Nas Preutt on 40-42-5930Clnnnqyuul (Bld) [Mass/Vol]12.2 g/dLLow13.0-17.0[facility] HospitalComment on above:Performed By: #### PTT, PT #### [place] [id number] USALeukocytes [#/volume] corrected for nucleated erythrocytes in Blood by Automated counOrdered By: Nas Pruett on 54-69-8420IEO corrected for nucl RBC Auto (Bld) [#/Vol]8.8 10*3/uL4.1-10.5FBerger Hospital Leukocytes [#/volume] in Blood by Automated countOrdered By: Nas Pruett on 22-54-0283UNO (Bld) [#/Vol]8.8 10*3/uLNormal4.1-10.5FBerger HospitalComment on above:Performed By: #### PTT, PT #### [place] [address] USALymphocytes [#/volume] in Blood by Automated countOrdered By: Nas Pruett on 12-49-7979Pxsaijfjacy (Bld) [#/Vol]1.4 10*3/uLNormal1.00-4.8 [facility] HospitalComment on above:Performed By: #### PTT, PT #### [place] [address] USALymphocytes/100 leukocytes in Blood by Automated count Ordered By: Nas Pruett on 93-27-0067Fsboubyolmy/100 WBC (Bld)15.6 %Normal. [facility] HospitalComment on above:Performed By: #### PTT, PT #### [facility] [address] [place], [place] [address]MCH [Entitic mass] by Automated countOrdered By: Nas Pruett on 42-81-8785QUE (RBC) [Entitic mass]28.1 qjPibwmk08.5-35.2FBerger HospitalComment on above:Performed By: #### PTT, PT #### [facility] [address] [place], [place] [address]HC Auto (RBC) [Mass/Vol]Ordered By: Nas Pruett on 74-08-7939GSJS (RBC) [Mass/Vol]32.9 g/dL32.5-35.6FBerger HospitalMCV [Entitic volume] by Automated countOrdered By: Nas Pruett on 01-21-2024 MCV (RBC) [Entitic vol]85.6 wUVvxiwd13.5-101[facility] Comment on above:Performed By: #### PTT, PT #### [facility] [address] [place] [address] USANeutrophils [#/volume] in Blood by Automated countOrdered By: aNs Pruett on 49-27-4333Qmxighhoesk (Bld) [#/Vol]5.7 10*3/uLNormal1.8-7.7 [facility] HospitalComment on above:Performed By: #### PTT, PT #### [facility] [address] [place] [address] USANo Panel InformationOrdered By: Nas Pruett on 01-21-2024 Estimated GFR (CKD-EPI)43.613 mL/MinKeenan Private HospitalPharmacy Creatinine Clearance (Chem46.56Keenan Private HospitalNucleated erythrocytes [Presence] in Blood by Automated countOrdered By: Nas Pruett on 22-51-2097Qkpzmoyve RBC Auto Ql (Bld)0.1 /100{WBC}0-0.5FBerger HospitalPlatelet mean volume [Entitic volume] in Blood by Automated count Ordered By: Nas Pruett on 87-56-1848Eiworfzz mean volume (Bld) [Entitic vol]8.4 fLNormal6.6-10.1FBerger HospitalComment on above:Performed By: #### PTT, PT #### [facility] [address] [place] [address] USAPlatelets [#/volume] in Blood by Automated countOrdered By: aNs Pruett on 35-98-8572Sngiqdnzg (Bld) [#/Vol]221 10*3/uBKnwrrl753-252 [facility] HospitalComment on above:Performed By: #### PTT, PT #### [facility] [address] [place] [address] USAPotassium [Moles/volume] in Serum or PlasmaOrdered By: Nas Pruett on 18-92-2597Grmlidaro [Moles/Vol]3.9 mmol/LNormal3.5-5.1FBerger HospitalComment on above:Performed By: #### PTT, PT #### [facility] [address] [place] [address] USASerum or plasma anion gap determinationOrdered By: Nas Pruett on 91-00-1659Koqeo gap [Moles/Vol]13.8 mmol/LNormal6.0-15.0[facility] Private HospitalComment on above:Performed By: #### PTT, PT #### [facility] [address] [place] [address] USASodium [Moles/volume] in Serum or PlasmaOrdered By: Nas Pruett on 23-03-8080Tdwglh [Moles/Vol]137 mmol/XSjultx470-752UqdiosjdlKeenan Private HospitalComment on above:Performed By: #### PTT, PT #### [facility] [address] [place] [address] USAUrea nitrogen [Mass/volume] in Serum or PlasmaOrdered By: Nas Pruett on 15-21-4752Ehqm nitrogen [Mass/Vol]35 mg/dLHigh7-25[facility] Private HospitalComment on above:Performed By: #### PTT, PT #### [place] [address] USABasic Metabolic Panelon 63-63-2071Kwgxm gap [Moles/Vol] 12.0 mmol/LNormal6.0-15.0The [facility] Physician GroupComment on above:Performed By: #### BLAKE, CUU #### [place] [address] USACalcium [Mass/Vol]8.4 mg/dLLow8.6-10.3The [facility] Physician GroupComment on above:Performed By: #### BLAKE, CUU #### [place] [address] USAChloride [Moles/Vol]107 mmol/GVuuqzd31-207Gtx [facility] Physician GroupComment on above:Performed By: #### BLAKE, CUU #### [place] [address] USACO2 [Moles/Vol]19.5 mmol/LLow21.0-31.0The [facility] Physician GroupComment on above:Performed By: #### BLAKE, CUU #### [address] [address] USACreatinine [Mass/Vol]1.50 mg/dLHigh0.70-1.30The [facility] Physician GroupComment on above:Performed By: #### BLAKE CUU #### [place] [address] USACreatinine Clr Calc Fhyhhhlf90.40NormalThe [facility] Physician GroupComment on above:Result Comment: PERFORMED BY: [place] [address] PATHOLOGIST MANAGER [employer]CIAL SERVICES OREN OWEN M.D.Performed By: #### BLAKE CUU #### [place] [address] USAGFR/1.73 sq M.predicted MDRD (S/P/Bld) [Vol rate/Area] 46.772 mL/min/{1.73_m2}NormalThe [facility] Physician GroupComment on above: Performed By: #### BLAKE CUU #### [place] [address] USAGlucose [Mass/Vol]136 mg/jJIsei05-861Kgn [facility] Physician GroupComment on above:Result Comment: Random Glucose Reference Range is dependent on time and content of last meal. Glucose of more than 200 mg/dL in a nonstressed, ambulatory subject supports the diagnosis of Diabetes Mellitus. ADA recommended reference rangePerformed By: #### BLAKE CUU #### [place] [address] USAPotassium [Moles/Vol]3.5 mmol/LNormal3.5-5.1The [facility] Physician GroupComment on above:Performed By: #### BLAKE CUU #### [place] [address] USASodium [Moles/Vol]135 mmol/GOus742-654Iqo [facility] Physician GroupComment on above:Performed By: #### BLAKE, CUU #### [place] [address] USAUrea nitrogen [Mass/Vol]32 mg/dLHigh7-25The [facility] Physician GroupComment on above:Performed By: #### MAISHA LOZANOU #### [place] [address] USAComplete Blood Count Auto Diffon 05-40-0988Mrsrxzilk (Bld) [#/Vol]0.0 10*3/uLNormal0.0-0.2The [facility] Physician GroupComment on above: Result Comment: PERFORMED BY: [place] [address] PATHOLOGIST MANAGER FIN[employer]CIAL SERVICES OREN OWEN M.D.Performed By: #### MAISHA LOZANOU #### [place] [address] USABasophils/100 WBC (Bld)0.3 %Normal.The [facility] Physician GroupComment on above:Performed By: #### MAISHA LOZANOU #### [place] [address] USAEosinophils (Bld) [#/Vol]0.2 10*3/uLNormal0.0-0.45The [facility] Physician GroupComment on above:Performed By: #### BLAKE CUU #### [place] [address] USAEosinophils/100 WBC (Bld)1.7 %Normal.The [facility] Physician GroupComment on above:Performed By: #### BLAKE CUU #### [place] [address] USAErythrocyte distribution width (RBC) [Ratio]15.4 %High 12.0-14.8The [facility] Physician GroupComment on above:Performed By: #### BLAKE CUU #### [place] [address] USAHematocrit (Bld) [Volume fraction]37.6 %Low38.8-50.0The [facility] Physician GroupComment on above:Performed By: #### BLAKE CUU #### [place] [address] USAHemoglobin (Bld) [Mass/Vol]12.5 g/dLLow13.0-17.0The [facility] Physician GroupComment on above:Performed By: #### BLAKE, CUU #### [place] [address] USALymphocytes (Bld) [#/Vol]1.1 10*3/uLNormal1.00-4.8The [facility] Physician GroupComment on above:Performed By: #### BLAKE CUU #### [place] [address] USALymphocytes/100 WBC (Bld)11.8 %Normal.The [facility] Physician GroupComment on above:Performed By: #### BLAKE CUU #### [address]MCH (RBC) [Entitic mass]28.5 dsSoruvt74.5-35.2The [facility] Physician GroupComment on above:Performed By: #### BLAKE CUU #### [place] [address] USAMCV (RBC) [Entitic vol]85.9 iAMhptpc24.5-101The [facility] Physician GroupComment on above:Performed By: #### BLAKE CUU #### [place] [address] USAMean Corpuscular HGB Conc33.2 g/dZXlcrcd08.5-35.6The [facility] Physician GroupComment on above:Performed By: #### BLAKE, CUU #### [place] [address] USAMonocytes (Bld) [#/Vol]1.4 10*3/uLHigh0.0-0.8The [facility] Physician GroupComment on above:Performed By: #### BLAKE, CUU #### [address] [place] [address] USAMonocytes/100 WBC (Bld)14.3 %Normal.The [facility] Physician GroupComment on above:Performed By: #### BLAKE, CUU #### [place] [address] USANeutrophils (Bld) [#/Vol]6.8 10*3/uLNormal1.8-7.7The [facility] Physician GroupComment on above:Performed By: #### BLAKE, CUU #### [place] [address] USANeutrophils/100 WBC (Bld)71.9 %Normal.The [facility] Physician GroupComment on above:Performed By: #### BLAKE, CUU #### [place] [address] USANRBC%0.0 /100{WBC}Normal0-0.5The [facility] Physician Group Comment on above:Performed By: #### BLAKE, CUU #### [place] [address] USAPlatelet mean volume (Bld) [Entitic vol]8.3 fLNormal 6.6-10.1The [facility] Physician GroupComment on above:Performed By: #### BLAKE, CUU #### [place] [address] USAPlatelets (Bld) [#/Vol]202 10*3/yAZsoenu064-347Aim [facility] Physician GroupComment on above:Performed By: #### BLAKE, CUU #### [place] [address] USARBC (Bld) [#/Vol]4.38 10*6/uLNormal3.90-5.60The [facility] Physician GroupComment on above:Performed By: #### BLAKE, CUU #### [place] [address] USAWBC (Bld) [#/Vol]9.5 10*3/uLNormal4.1-10.5The [facility] Physician GroupComment on above:Performed By: #### JHONNY LOZANO #### [place] [address] USAMagnesium [Mass/volume] in Serum or PlasmaOrdered By: Isaac Edwards on 32-47-0947Zcfadulza [Mass/Vol]2.1 mg/dLNormal1.9-2.7 [facility] HospitalComment on above:Result Comment: PERFORMED BY: [place] [address] PATHOLOGIST MANAGER [employer]CIAL SERVICES OREN OWEN M.D.Performed By: #### JHONNY LOZANO #### [place] [address] USABasic Metabolic Panelon 00-91-7848Wcmpw gap [Moles/Vol] 11.7 mmol/LNormal6.0-15.0The [facility] Physician GroupComment on above:Performed By: #### [facility] #### [place] [address] USACalcium [Mass/Vol]8.5 mg/dLLow8.6-10.3The [facility] Physician GroupComment on above:Performed By: #### [facility] #### [place] [address] USAChloride [Moles/Vol]106 mmol/XJtdgym39-939Bkq [facility] Physician GroupComment on above:Performed By: #### [facility] #### [facility] [address] [place] [address] USACO2 [Moles/Vol]19.9 mmol/LLow21.0-31.0The [facility] Physician GroupComment on above:Performed By: #### [facility] #### [place] [address] USACreatinine [Mass/Vol]1.62 mg/dLHigh0.70-1.30The [facility] Physician GroupComment on above:Performed By: #### [facility] #### [place] [address] USACreatinine Clr Calc Ttkviqiy93.28NormalThe [facility] Physician GroupComment on above:Result Comment: PERFORMED BY: [place] [address] PATHOLOGIST MANAGER [employer]CIAL SERVICES OREN OWEN M.D.Performed By: #### [facility] #### [place] [address] USAGFR/1.73 sq M.predicted MDRD (S/P/Bld) [Vol rate/Area] 42.646 mL/min/{1.73_m2}NormalThe [facility] Physician GroupComment on above: Performed By: #### [facility] #### [place] [address] USAGlucose [Mass/Vol]145 mg/rXQhcx74-296Zdb [facility] Physician GroupComment on above:Result Comment: Random Glucose Reference Range is dependent on time and content of last meal. Glucose of more than 200 mg/dL in a nonstressed, ambulatory subject supports the diagnosis of Diabetes Mellitus. ADA recommended reference rangePerformed By: #### [facility] #### [place] [address] USAPotassium [Moles/Vol]3.6 mmol/LNormal3.5-5.1The [facility] Physician GroupComment on above:Performed By: #### [facility] #### [place] [address] USASodium [Moles/Vol]134 mmol/BEmn651-657Tck [facility] Physician GroupComment on above:Performed By: #### [facility] #### [place] [address] USAUrea nitrogen [Mass/Vol]32 mg/dLHigh7-25The [facility] Physician GroupComment on above:Performed By: #### [facility] #### [place] [address] USAComplete Blood Count Auto Diffon 44-41-0055Jlgdtpevo (Bld) [#/Vol]0.0 10*3/uLNormal0.0-0.2The [facility] Physician GroupComment on above: Result Comment: PERFORMED BY: [place] [address] PATHOLOGIST MANAGER [employer]CIAL SERVICES OREN OWEN M.D.Performed By: #### BLAKE CUU #### [place] [address] USABasophils/100 WBC (Bld)0.4 %Normal.The [facility] Physician GroupComment on above:Performed By: #### BLAKE CUU #### [place] [address] USAEosinophils (Bld) [#/Vol]0.0 10*3/uLNormal0.0-0.45The [facility] [facility] Physician GroupComment on above:Performed By: #### BLAKE CUU #### [place] [address] USAEosinophils/100 WBC (Bld)0.4 %Normal.The [facility] Physician GroupComment on above:Performed By: #### BLAKE CUU #### [place] [address] USAErythrocyte distribution width (RBC) [Ratio]15.6 %High 12.0-14.8The [facility] Physician GroupComment on above:Performed By: #### BLAKE CUU #### [place] [address] USAHematocrit (Bld) [Volume fraction]37.1 %Low38.8-50.0The [facility] Physician GroupComment on above:Performed By: #### BLAKE CUU #### [place] [address] USAHemoglobin (Bld) [Mass/Vol]12.3 g/dLLow13.0-17.0The [facility] Physician GroupComment on above:Performed By: #### ADDONUAPLUS, CUU #### [place] [address] USALymphocytes (Bld) [#/Vol]1.0 10*3/uLNormal1.00-4.8The [facility] Physician GroupComment on above:Performed By: #### BLAKE, CUU #### [place] [address] USALymphocytes/100 WBC (Bld)8.8 %Normal.The [facility] Physician GroupComment on above:Performed By: #### BLAKE, CUU #### [address] (RBC) [Entitic mass]28.6 rhCqhfrp83.5-35.2The [facility] Physician GroupComment on above:Performed By: #### BLAKE CUU #### [address] (RBC) [Entitic vol]86.5 mMLhonvm11.5-101The [facility] Physician GroupComment on above:Performed By: #### BLAKE CUU #### [place] [address] USAMean Corpuscular HGB Conc33.0 g/lJWvouwu77.5-35.6The [facility] Physician GroupComment on above:Performed By: #### BLAKE, CUU #### [place] [address] USAMonocytes (Bld) [#/Vol]1.3 10*3/uLHigh0.0-0.8The [facility] Physician GroupComment on above:Performed By: #### BLAKE, CUU #### [place] [address] USAMonocytes/100 WBC (Bld)11.9 %Normal.The [facility] Physician GroupComment on above:Performed By: #### BLAKE, CUU #### [place] [address] USANeutrophils (Bld) [#/Vol]8.6 10*3/uLHigh1.8-7.7The [facility] Physician GroupComment on above:Performed By: #### BLAKE, CUU #### [facility] [address] [place] [address] USANeutrophils/100 WBC (Bld)78.5 %Normal.The [facility] Physician GroupComment on above:Performed By: #### BLAKE, CUU #### [facility] [address] [place] [address] USANRBC%0.1 /100{WBC}Normal0-0.5The [facility] Comment on above:Performed By: #### BLAKE, CUU #### [facility] [address] [place] [address] USAPlatelet mean volume (Bld) [Entitic vol]8.9 fLNormal 6.6-10.1The [facility] Physician GroupComment on above:Performed By: #### BLAKE, CUU #### [facility] [address] [place] [address] USAPlatelets (Bld) [#/Vol]165 10*3/zELozxyw252-339Jqn [facility] Physician GroupComment on above:Performed By: #### BLAKE, CUU #### [facility] [address] [place] [address] USARBC (Bld) [#/Vol]4.30 10*6/uLNormal3.90-5.60The [facility] Physician GroupComment on above:Performed By: #### BLAKE, CUU #### [facility] [address] [place] [address] USAWBC (Bld) [#/Vol]11.0 10*3/uLHigh4.1-10.5The [facility] Physician GroupComment on above:Performed By: #### BLAKE, CUU #### [facility] [address] [place] [address] USAECG 12 lead ECGon 49-38-4455ZAJ 12 lead ECGOHIO VALLEY [facility] Main [place] [address] [place] [address] Electrocardiograph Report Signed Patient: Alex Anderson MR#: [id number] 36 : 1945 Acct:[id number] Age/Sex: 78 / M ADM Date: 01/16/24 Loc: Room: [address] [place] [address] Type: ADM IN Attending Dr: Nas Pruett [...] or before 16-Jan-2024) Inferolateral injury pattern ACUTE FL / STEMI Abnormal ECG When compared with ECG of 18-Jan-2024 07:08, No significant change was found Confirmed by Misael Campbell ([id number]) on 01/20/2024 10:18:21 PM Referred By: Electronically Signed By: Misael Campbell Transcribed By: MUS Signed By Misael Campbell MD 01/20/24 2218[facility] Physician GroupBasic Metabolic Panelon 36-89-6735Fokwu gap [Moles/Vol]11.5 mmol/LNormal6.0-15.0The [facility] Physician GroupComment on above:Performed By: #### CBC, BMP #### [facility] [address] [place] [id number] USACalcium [Mass/Vol]8.7 mg/dLNormal8.6-10.3The [facility] Physician GroupComment on above:Performed By: #### CBC, BMP #### [facility] [address] [place] [address] USAChloride [Moles/Vol]107 mmol/VAmeesi72-669Lrf [facility] Physician GroupComment on above:Performed By: #### CBC, BMP #### [facility] [address] [place] [address] USACO2 [Moles/Vol]21.2 mmol/PTwnbxf28.0-31.0The [facility] Physician GroupComment on above:Performed By: #### CBC, BMP #### [facility] [address] [place] [address] USACreatinine [Mass/Vol]1.59 mg/dLHigh0.70-1.30The [facility] Physician GroupComment on above:Performed By: #### CBC, BMP #### [place] [address] USACreatinine Clr Calc Uonswqzo82.65NormalThe [facility] Physician GroupComment on above:Result Comment: PERFORMED BY: [place] [address] PATHOLOGIST MANAGER [employer] OREN OWEN M.D.Performed By: #### CBC, BMP #### [place] [address] USAGFR/1.73 sq M.predicted MDRD (S/P/Bld) [Vol rate/Area] 43.613 mL/min/{1.73_m2}NormalThe [facility] Physician GroupComment on above: Performed By: #### CBC, BMP #### [place] [address] USAGlucose [Mass/Vol]125 mg/xDQaak45-944Upd [facility] Physician GroupComment on above:Result Comment: Random Glucose Reference Range is dependent on time and content of last meal. Glucose of more than 200 mg/dL in a nonstressed, ambulatory subject supports the diagnosis of Diabetes Mellitus. ADA recommended reference rangePerformed By: #### CBC, BMP #### [place] [address] USAPotassium [Moles/Vol]3.7 mmol/LNormal3.5-5.1The [facility] Physician GroupComment on above:Performed By: #### CBC, BMP #### [place] [address] USASodium [Moles/Vol]136 mmol/FTftbou989-534Tlv [facility] Physician GroupComment on above:Performed By: #### CBC, BMP #### [place] [address] USAUrea nitrogen [Mass/Vol]29 mg/dLHigh7-25The [facility] Physician GroupComment on above:Performed By: #### CBC, BMP #### [place] [address] USAComplete Blood Count Auto Diffon 59-36-6538Odemzlkue (Bld) [#/Vol]0.0 10*3/uLNormal0.0-0.2The [facility] Physician GroupComment on above: Result Comment: PERFORMED BY: [place] [address] PATHOLOGIST MANAGER [employer] OREN OWEN M.D.Performed By: #### CBC, BMP #### [place] [address] USABasophils/100 WBC (Bld)0.4 %Normal.The [facility] Physician GroupComment on above:Performed By: #### CBC, BMP #### [place] [address] USAEosinophils (Bld) [#/Vol]0.0 10*3/uLNormal0.0-0.45The [facility] Physician GroupComment on above:Performed By: #### CBC, BMP #### [place] [address] USAEosinophils/100 WBC (Bld)0.2 %Normal.The [facility] Physician GroupComment on above:Performed By: #### CBC, BMP #### [place] [address] USAErythrocyte distribution width (RBC) [Ratio]15.9 %High 12.0-14.8The [facility] Physician GroupComment on above:Performed By: #### CBC, BMP #### [place] [address] USAHematocrit (Bld) [Volume fraction]38.2 %Low38.8-50.0The [facility] Physician GroupComment on above:Performed By: #### CBC, BMP #### [place] [address] USAHemoglobin (Bld) [Mass/Vol]12.7 g/dLLow13.0-17.0The [facility] Physician GroupComment on above:Performed By: #### CBC, BMP #### [place] [address] USALymphocytes (Bld) [#/Vol]1.4 10*3/uLNormal1.00-4.8The [facility] Physician GroupComment on above:Performed By: #### CBC, BMP #### [place] [address] USALymphocytes/100 WBC (Bld)11.5 %Normal.The [facility] Physician GroupComment on above:Performed By: #### CBC, BMP #### [place] [address] USAMCH (RBC) [Entitic mass]28.5 lvKnwhmn86.5-35.2The [facility] Physician GroupComment on above:Performed By: #### CBC, BMP #### [place] [address] USAMCV (RBC) [Entitic vol]85.4 xDYgqyvk29.5-101The [facility] Physician GroupComment on above:Performed By: #### CBC, BMP #### [place] [address] USAMean Corpuscular HGB Conc33.4 g/fLDvvjae10.5-35.6The [facility] Physician GroupComment on above:Performed By: #### CBC, BMP #### [place] [address] USAMonocytes (Bld) [#/Vol]1.5 10*3/uLHigh0.0-0.8The [facility] Physician GroupComment on above:Performed By: #### CBC, BMP #### [place] [address] USAMonocytes/100 WBC (Bld)12.8 %Normal.The [facility] Physician GroupComment on above:Performed By: #### CBC, BMP #### [place] [address] USANeutrophils (Bld) [#/Vol]9.1 10*3/uLHigh1.8-7.7The [facility] Physician GroupComment on above:Performed By: #### CBC, BMP #### [place] [address] USANeutrophils/100 WBC (Bld)75.1 %Normal.The [facility] Physician GroupComment on above:Performed By: #### CBC, BMP #### [place] [address] USANRBC%0.0 /100{WBC}Normal0-0.5The [facility] Comment on above:Performed By: #### CBC, BMP #### [place] [address] USAPlatelet mean volume (Bld) [Entitic vol]9.3 fLNormal 6.6-10.1The [facility] Physician GroupComment on above:Performed By: #### CBC, BMP #### [place] [address] USAPlatelets (Bld) [#/Vol]131 10*3/xICtm794-718Hxa [facility] Physician GroupComment on above:Performed By: #### CBC, BMP #### [place] [address] USARBC (Bld) [#/Vol]4.47 10*6/uLNormal3.90-5.60The [facility] Physician GroupComment on above:Performed By: #### CBC, BMP #### [place] [address] USAWBC (Bld) [#/Vol]12.1 10*3/uLHigh4.1-10.5The [facility] Physician GroupComment on above:Performed By: #### CBC, BMP #### [address] [place] [address] USAECG 12 lead ECGon 53-60-1714QTR 12 lead ECGOHIO VALLEY SURGICAL [facility] Main [place] [address] [place] [address] Electrocardiograph Report Signed Patient: Alex Anderson MR#: [id number] 36 : 1945 Acct:[id number] Age/Sex: 78 / M ADM Date: 01/16/24 Loc: Room: [address] [place] [address] Type: ADM IN Attending Dr: Nas Pruett [...] Signed By Ana Castro MD 0 01/18/24 1102No[facility] Physician GroupBasic Metabolic Panelon 07-12-5730Traxt gap [Moles/Vol]12.3 mmol/LNormal6.0-15.0The [facility] Physician GroupComment on above:Performed By: #### BLAKE CUU #### [facility] [address] [place] [address] USACalcium [Mass/Vol]8.9 mg/dLNormal8.6-10.3The [facility] Physician GroupComment on above:Performed By: #### BLAKE, CUU #### [facility] [address] [place] [address] USAChloride [Moles/Vol]105 mmol/VQqzrri04-098Cpn [facility] Physician GroupComment on above:Performed By: #### BLAKE CUU #### [facility] [address] [place] [address] USACO2 [Moles/Vol]22.2 mmol/MHyxuzy44.0-31.0The [facility] Physician GroupComment on above:Performed By: #### BLAKE CUU #### [facility] [address] [place] [address] USACreatinine [Mass/Vol]1.70 mg/dLHigh0.70-1.30The [facility] Physician GroupComment on above:Performed By: #### BLAKE CUU #### [place] [address] USACreatinine Clr Calc Asnysmdw96.35NormalThe [facility] Physician GroupComment on above:Performed By: #### BLAKE CUU #### [place] [address] USAGFR/1.73 sq M.predicted MDRD (S/P/Bld) [Vol rate/Area] 40.249 mL/min/{1.73_m2}NormalThe [facility] Physician GroupComment on above: Performed By: #### BLAKE CUU #### [place] [address] USAGlucose [Mass/Vol]115 mg/oWJyzp72-121Zrq [facility] Physician GroupComment on above:Result Comment: Random Glucose Reference Range is dependent on time and content of last meal. Glucose of more than 200 mg/dL in a nonstressed, ambulatory subject supports the diagnosis of Diabetes Mellitus. ADA recommended reference rangePerformed By: #### BLAKE CUU #### [place] [address] USAPotassium [Moles/Vol]4.5 mmol/LNormal3.5-5.1The [facility] Physician GroupComment on above:Performed By: #### BLAKE CUU #### [place] [address] USASodium [Moles/Vol]135 mmol/HMre407-042Uhj [facility] Physician GroupComment on above:Performed By: #### JHONNY LOZANO #### [facility] [address] [place] [address] USAUrea nitrogen [Mass/Vol]26 mg/dLHigh7-25The [facility] Physician GroupComment on above:Performed By: #### BLAKE CUU #### [facility] [address] [place] [id number] USACapillary blood glucose measurement by glucometer (mass/volume)Ordered By: Nas Pruett on 41-42-5008Nqtqhhn [Mass/Vol]126 mg/dL NormalKeenan Private HospitalComment on above:Random Glucose Reference Range is [...] the diagnosis of Diabetes Mellitus. PERFORMED BY: [place] [address] PATHOLOGIST MANAGER [employer] OREN OWEN M.D.Performed By: #### JHONNY LOZANO #### [place] [id number] USACholesterol [Mass/volume] in Serum or PlasmaOrdered By: Nas Pruett on 81-33-3398Opbhrxhtxeh [Mass/Vol]74 mg/nEPjr969-012QjmjrumugKeenan Private HospitalComment on above:Chol less than 200 mg/dl low riskChol 201-239 mg/dl borderline riskChol 240 mg/dl and greater high riskResult Comment: Chol less than 200 mg/dl low risk Chol 201-239 mg/dl borderline risk Chol 240 mg/dl and greater high riskPerformed By: #### BLAKE, CUU #### [place] [id number] USACholesterol in LDL Calc [Mass/Vol]Ordered By: Nas Pruett on 20-06-9428Lqwrbofznxs in LDL [Mass/Vol]28 mg/dL0-100Keenan Private HospitalComment on above:LDL ATP III CLASSIFICATIONLDL less than 100 mg/dL OptimalLDL 100-129 mg/dL Near or above zilbgsiAJJ516-907 mg/dL Borderline highLDL 160-189 mg/dL HighLDL greater than 189 mg/dL Very highCholesterol in VLDL Calc [Mass/Vol]Ordered By: Nas Pruett on 02-79-2239Qnfycwefomw in VLDL [Mass/Vol]13 mg/dLKeenan Private HospitalDipstick and Microscopicon 79-27-5448Fnnfbkaqwm (U)CloudyCritically abnormalClearThe [facility] Physician GroupComment on above:Order Comment: Name Collection Type:: Zapien Catheter Performed By: #### BLAKE, CUU #### [facility] [address] [place] [address] USABacteria,Urine2+HighNone SeenThe [facility] Group Comment on above:Order Comment: Name Collection Type:: Zapien CatheterPerformed By: #### BLAKE, CUU #### [facility] [address] [place] [address] USABilirubin,UrineNegativeNormalNegativeThe [facility] Physician GroupComment on above:Order Comment: Name Collection Type:: Zapien CatheterPerformed By: #### BLAKE, CUU #### [facility] [address] [place] [address] USAColor (U)Light-YellowNormalYellowThe [facility] Physician GroupComment on above:Order Comment: Name Collection Type:: Zapien Catheter Performed By: #### ADDMOEUAPLUS, CUU #### [facility] [address] [place] [address] USAGlucose Ql (U)NormalNormalNormalThe [facility] Physician GroupComment on above:Order Comment: Name Collection Type:: Zapien Catheter Performed By: #### HETALUAPLUS, CUU #### [facility] [address] [place] [address] USAHyaline Casts,UrineNoneNormal0-8The [facility] Physician GroupComment on above:Order Comment: Name Collection Type:: Zapien Catheter Performed By: #### ADDONUAPLUS, CUU #### [place] [address] USAKetones Ql (U)NegativeNormalNegativeThe [facility] Physician GroupComment on above:Order Comment: Name Collection Type:: Zapien CatheterPerformed By: #### ADDONUAPLUS, CUU #### [place] [address] USALeukocyte esterase Test strip Ql (U)3+HighNegativeThe [facility] Physician GroupComment on above:Order Comment: Name Collection Type:: Zapien CatheterPerformed By: #### ADDONUAPLUS, CUU #### [place] [address] USAMucus,UrineRareNormalThe [facility] Physician GroupComment on above:Order Comment: Name Collection Type:: Zapien CatheterResult Comment: PERFORMED BY: [place] [address] PATHOLOGIST MANAGER [employer] OREN OWEN M.D.Performed By: #### ADDONUAPLUS, CUU #### [place] [address] USANitrite,UrineNegativeNormalNegativeThe [facility] Physician GroupComment on above:Order Comment: Name Collection Type:: Zapien Catheter Performed By: #### ADDONUAPLUS, CUU #### [place] [address] USAOccult Blood,UrineTraceHighNegativeThe [facility] Physician GroupComment on above:Order Comment: Name Collection Type:: Zapien Catheter Result Comment: PERFORMED BY: [place] [address] PATHOLOGIST MANAGER [employer] OREN OWEN M.D.Performed By: #### ADDONUAPLUS, CUU #### [place] [address] USApH (U)6.0 [pH]Normal5.0-9.0The [facility]ician Group Comment on above:Order Comment: Name Collection Type:: Zapien CatheterPerformed By: #### ADDONUAPLUS, CUU #### [facility] [address] [place] [address] USAProtein,UrineTraceHighNegativeThe [facility] Physician GroupComment on above:Order Comment: Name Collection Type:: Zapien Catheter Performed By: #### ADDONUAPLUS, CUU #### [place] [address] USARBC,Dyjcg1-6Aexjsf0-9Soc [facility] Physician GroupComment on above:Order Comment: Name Collection Type:: Zapien CatheterPerformed By: #### ADDONUAPLUS, CUU #### [place] [address] USASpecificy Saluda,Urine1.782Pjfvyz1.001-1.030The [facility] Physician GroupComment on above:Order Comment: Name Collection Type:: Zapien CatheterPerformed By: #### ADDONUAPLUS, CUU #### [place] [address] USASquamous Epithelial Cell,Fvtje4-1Yvnmia3-0Xrm [facility] Physician GroupComment on above:Order Comment: Name Collection Type:: Zapien CatheterPerformed By: #### ADDONUAPLUS, CUU #### [place] [address] USAUrobilinogen,UrineNormalNormalNormalThe [facility] Physician GroupComment on above:Order Comment: Name Collection Type:: Zapien CatheterPerformed By: #### ADDONUAPLUS, CUU #### [place] [address] USAWBC,Iznmd45-40Iizx6-2Ptf [facility] Physician GroupComment on above:Order Comment: Name Collection Type:: Zapien CatheterPerformed By: #### ADDONUAPLUS, CUU #### [place] [address] USAECG 12 lead ECGon 72-40-8653SFF 12 lead ECGOHIO VALLEY SURGICAL [facility] Main [place] [address] [place] [address] Electrocardiograph Report Signed Patient: Alex Anderson MR#: [id number] 36 : 1945 Acct:[id number] Age/Sex: 78 / M ADM Date: 01/16/24 Loc: Room: [address] [place] [address] Type: ADM IN Attending Dr: Nas Pruett [...] or before 16-Jan-2024) Inferior injury pattern ACUTE FL / STEMI Abnormal ECG When compared with ECG of 16-Jan-2024 19:53, (Unconfirmed) Serial changes of evolving Septal infarct present Confirmed by ANA CASTRO MD ([id number]) on 01/17/2024 9:52:42 AM Referred By: Electronically Signed By: ANA CASTRO MD Transcribed By: MUS Signed By Ana Castro MD 0 01/17/[address] [place] [address] Physician GroupECH echo transthoracicon 20-76-9448GVC echo transthoracicOHIO VALLEY SURGICAL HOSPITAL Main [place] [address] [place] [address] Echocardiogram Signed Patient: Alex Anderson MR#: [id number] 36 : 1945 Acct:[id number] Age/Sex: 78 / M ADM Date: 01/16/24 Loc: Room: [address] [place] [address] Type: ADM IN Attending Dr: Nas Pruett [...] 1045 Signed By: Ana Castro MD 01/17/24 1150NoDor[facility] Physician [facility] HospitalGlucose Poct Glucometerson 32-36-4562Acxwret [Mass/Vol]115 mg/dLNoDorothea Dix Hospital Physician [facility] HospitalComment on above:Result Comment: Random Glucose Reference Range is dependent on time and content of last meal. Glucose of more than 200 mg/dL in a nonstressed, ambulatory subject supports the diagnosis of Diabetes Mellitus. PERFORMED BY: [place] [address] PATHOLOGIST MANAGER [employer] OREN OWEN M.D.Performed By: #### PTT, PT #### [place] [address] USAGlucose [Mass/Vol]114 mg/dLNoDorothea Dix Hospital Physician [facility] HospitalComment on above:Result Comment: Random Glucose Reference Range is dependent on time and content of last meal. Glucose of more than 200 mg/dL in a nonstressed, ambulatory subject supports the diagnosis of Diabetes Mellitus. PERFORMED BY: [place] [address] PATHOLOGIST MANAGER [employer] OREN OWEN M.D.Performed By: #### BLAKE CUU #### [place] [address] USAGlucose [Mass/Vol]125 mg/dLNoDorothea Dix Hospital Physician [facility] HospitalComment on above:Result Comment: Random Glucose Reference Range is dependent on time and content of last meal. Glucose of more than 200 mg/dL in a nonstressed, ambulatory subject supports the diagnosis of Diabetes Mellitus. PERFORMED BY: [place] [id number] PATHOLOGIST MANAGER [employer]CIAL SERVICES OREN OWEN M.D.Performed By: #### PTT, PT #### [place] [id number] USALipid Panelon 27-38-6307HNB Cholesterol,Srcrarjnit44 mg/dL Normal0-100The [facility] Physician GroupComment on above:Result Comment: LDL ATP III CLASSIFICATION LDL less than 100 mg/dL Optimal LDL 100-129 mg/dL Near or above optimal LDL 130-159 mg/dL Borderline high LDL 160-189 mg/dL High LDL greater than 189 mg/dL Very highPerformed By: #### BLAKE, CUU #### [facility] [address] [place] [id number] USATriglyceride w/Cyucgx31 mg/dLNormal0-149The [facility] Physician GroupComment on above:Result Comment: TRIG ATP III CLASSIFICATION TRIG less than 150 mg/dL Normal TRIG 150-199 mg/dL Borderline high TRIG 200-500 mg/dL High TRIG greater than 500 mg/dL Very high Standard traceable to the Center for Disease Conrtrol and Prevention (CDC) test method.Performed By: #### BLAKE, CUU #### [facility] [address] [place] [address] USAVLDL RIRGOUJXAVO42 mg/dLNormalThe [facility] Physician [facility] HospitalComment on above:Performed By: #### BLAKE, CUU #### [facility] [address] [place], [place] [id number] USAPlatelet adequacy [Presence] in Blood by Light microscopy Ordered By: Nas Pruett on 25-74-5154Munkmqwfo LM Ql (Bld)DecreasedNormLouis Stokes Cleveland VA Medical CenterPlatelet morphology finding [Identifier] in BloodOrdered By: Nas Pruett on 08-03-8651Bvtmjklx morphology finding Nom (Bld)NormalNormal Keenan Private HospitalRBC morphologyOrdered By: Nas Pruett on 38-12-6236WCJ morphology finding Nom (Bld)N/AFBerger Hospital Scan and CBCon 70-59-5028Zrgooewrx (Bld) [#/Vol]0.1 10*3/uLNormal0.0-0.2[facility] Physician GroupComment on above:Result Comment: PERFORMED BY: [place] [address] PATHOLOGIST MANAGER FINANCIAL SERVICES OREN OWEN M.D.Performed By: #### BLAKE, CUU #### [place] [address] USABasophils/100 WBC (Bld)0.4 %Normal.[facility] Physician GroupComment on above:Performed By: #### BLAKE, CUU #### [place] [address] USAEosinophils (Bld) [#/Vol]0.0 10*3/uLNormal0.0-0.45[facility] Physician GroupComment on above:Performed By: #### BLAKE, CUU #### [place] [address] USAEosinophils/100 WBC (Bld)0.0 %Normal.[facility] Physician GroupComment on above:Performed By: #### BLAKE, CUU #### [place] [address] USAErythrocyte distribution width (RBC) [Ratio]15.8 %High 12.0-14.8[facility] Physician GroupComment on above:Performed By: #### BLAKE CUU #### [place] [address] USAHematocrit (Bld) [Volume fraction]38.4 %Low38.8-50.0[facility] Physician GroupComment on above:Performed By: #### BLAKE, CUU #### [place] [address] USAHemoglobin (Bld) [Mass/Vol]12.7 g/dLLow13.0-17.0[facility] Physician GroupComment on above:Performed By: #### BLAKE, CUU #### [place] [address] USALymphocytes (Bld) [#/Vol]1.2 10*3/uLNormal1.00-4.8[facility] Physician GroupComment on above:Performed By: #### JESUSPLUS, CUU #### [place] [address] USALymphocytes/100 WBC (Bld)6.9 %Normal.[facility] Physician GroupComment on above:Performed By: #### ADDONUAPLUS, CUU #### [address] (RBC) [Entitic mass]28.4 wcRbcyqm26.5-35.2[facility] Physician GroupComment on above:Performed By: #### ADDONUAPLUS, CUU #### [address] (RBC) [Entitic vol]86.1 jFQjwtvn05.5-101The [facility] Physician GroupComment on above:Performed By: #### ADDONUAPLUS, CUU #### [place] [address] USAMean Corpuscular HGB Conc33.0 g/sAGuckfr38.5-35.6[facility] Physician GroupComment on above:Performed By: #### ADDONUAPLUS, CUU #### [place] [address] USAMonocytes (Bld) [#/Vol]2.8 10*3/uLHigh0.0-0.8[facility] Physician GroupComment on above:Performed By: #### ADDONUAPLUS, CUU #### [place] [address] USAMonocytes/100 WBC (Bld)15.6 %Normal.[facility] Physician GroupComment on above:Performed By: #### ADDONUAPLUS, CUU #### [place] [address] USANeutrophils (Bld) [#/Vol]13.6 10*3/uLHigh1.8-7.7[facility] Physician GroupComment on above:Performed By: #### ADDONUAPLUS, CUU #### [place] [address] USANeutrophils/100 WBC (Bld)77.1 %Normal.[facility] Physician GroupComment on above:Performed By: #### BLAKE, CUU #### [place] [address] USANRBC%0.0 /100{WBC}Normal0-0.5[facility] Comment on above:Performed By: #### BLAKE, CUU #### [place] [address] USAPlatelet EstimateDecreasedNormalNormBeraja Medical Institute Physician GroupComment on above:Performed By: #### BLAKE CUU #### [place] [address] USAPlatelet mean volume (Bld) [Entitic vol]9.0 fLNormal 6.6-10.1[facility] Physician GroupComment on above:Performed By: #### BLAKE, CUU #### [place] [address] USAPlatelet MorphologyNormalNormalNormBeraja Medical Institute Physician GroupComment on above:Result Comment: PERFORMED BY: [place] [address] PATHOLOGIST MANAGER FINANCIAL SERVICES OREN OWEN M.D.Performed By: #### BLAKE, CUU #### [place] [address] USAPlatelets (Bld) [#/Vol]135 10*3/cLGll426-333Xis [facility] Physician GroupComment on above:Performed By: #### BLAKE, CUU #### [place] [address] USARBC (Bld) [#/Vol]4.46 10*6/uLNormal3.90-5.60[facility] Physician GroupComment on above:Performed By: #### JESUSPLUS, CUU #### [place] [address] USAWBC (Bld) [#/Vol]17.7 10*3/uLHigh4.1-10.5[facility] Physician GroupComment on above:Performed By: #### JHONNY LOZANO #### [place] [address] USASerum or plasma high density lipoprotein (HDL) cholesterol measurementOrdered By: Nas Pruett on 11-41-8353Essqxcsaiov in HDL [Mass/Vol]33 mg/eBJzdtxm48-74ZncivroohKeenan Private HospitalComment on above:HDL CHOL ATP- III CLASSIFICATION Cardiovascular RiskHDL > or equal to 60 mg/dL LOWHDL < 40 mg/dL HIGHResult Comment: HDL CHOL ATP-III CLASSIFICATION Cardiovascular Risk HDL > or equal to 60 mg/dL LOW HDL < 40 mg/dL HIGHPerformed By: #### BLAKE CUU #### [place] [address] USASerum or plasma total cholesterol/high density lipoprotein (HDL) cholesterol mass ratOrdered By: Nas Pruett on 01-17-2024 Cholesterol.total/Cholesterol in HDL [Mass ratio]2.2 {ratio}Normal<5.0Keenan Private HospitalComment on above:Result Comment: PERFORMED BY: [place] [address] PATHOLOGIST MANAGER FINANCIAL SERVICES OREN OWEN M.D.Performed By: #### BLAKE, CUU #### [place] [id number] USATriglyceride [Mass/volume] in Serum or PlasmaOrdered By: Nas Pruett on 81-22-6629Exvrdzuvvrht [Mass/Vol]67 mg/dL0-149Keenan Private HospitalComment on above:TRIG ATP III CLASSIFICATIONTRIG less than 150 mg/dL NormalTRIG 150-199 mg/dL Borderline highTRIG 200-500 mg/dL High TRIG greater than 500 mg/dL Very highStandard traceable to the Center for Disease Co nrtrol and Prevention (CDC) test method.Troponin I High Sensitivityon 01-17-2024 Troponin I High Lligrloethg78934.6 pg/mLOff scale high0.0-20.0[facility] Physician GroupComment on above:Result Comment: Critical Result I_TnIHS_d:87457.6 Called to and read back by: WU MCDANIEL at: 01/17/2024 06:17:54 by:[id number] PERFORMED BY: [place] [address] PATHOLOGIST MANAGER FINANCIAL SERVICES OREN OWEN M.D.Performed By: #### JHONNY LOZANO #### [place] [address] USATroponin I.cardiac [Mass/volume] in Serum or Plasma by Detection limit <= 0.01 ng/Ordered By: Nsa Pruett on 95-12-2443Uilkuopp I.cardiac DL <= 0.01 ng/mL [Mass/Vol]94324.6 pg/mLHigh0.0-20.0[facility] Private HospitalComment on above:Critical Result I_TnIHS_d:03338.6 Called to and read back by: WU MCDANIEL at: 01/17/2024 06:17:54 by:[id number] Cultureon 84-67-6602Laftbmsl identified Cx Nom (U)ORGANISM: Enterococcus faecalis (O:ENTFAC) Fenton Count >100,000 Aerobic RITESH Charge (PCMIC38) SUSCEPTIBILITY [...] RESISTANT TO ALL B-LACTAM DRUGS. PERFORMED BY: [place] [address] PATHOLOGIST MANAGER FINANCIAL SERVICES OREN OWEN M.D.[facility] Physician GroupComment on above:Performed By: #### PTT, PT #### [place] [address] USAUrine culture routineOrdered By: Justina Laar on 38-67-6365Furdjbyp identified Cx Nom (U)Enterococcus faecalisAbnoOur Lady of Mercy Hospital - AndersonXR chest 1V portableon 12-32-2624GA chest 1V portable [facility] [place] [address] XRay Report Signed Patient: Alex Anderson MR#: [id number] [birth year] : 1945 Acct:[id number] Age/Sex: 78 / M ADM Date: 01/16/24 Loc: Room: [address] [place] [address] Type: ADM IN Attending Dr: Nas Pruett [...] Corky Max M.D.01/17/2024 11:34 AM Dictation Location: [place] [address] Transcribed By: [facility] 01/17/24 1134 Dictated By: Corky Mxa II, MD 01/17/24 1132 Signed By: 01/17/24 1134[facility] Physician GroupECG 12 lead ECGon 00-64-8213EYU 12 lead ECGOH[facility] Main [place] [id number] Electrocardiograph Report Signed Patient: Alex Anderson MR#: [id number] [birth year] : 1945 Acct:[id number] Age/Sex: 78 / M ADM Date: 01/16/24 Loc: Room: [address] [place] [address] Type: ADM IN Attending Dr: Nas Pruett [...] Signed By Ana Castro MD 0 01/17/[address] [place] [address] Physician GroupEC 12 lead ECGSeth [place] [id number] Electrocardiograph Report Signed Patient: Alex Anderson MR#: [id number] [birth year] : 1945 Acct:[id number] Age/Sex: 78 / M ADM Date: 01/16/24 Loc: Room: [address] [place] [address] Type: ADM IN Attending Dr: Nas Pruett [...] Signed By Ana Castro MD 0 01/17/24 0057[facility] Physician [facility] HospitalGlucose Poct Glucometerson 12-68-2075Gqxvwww3Cjo0: Cleaned MeterMaple Grove HospitalComment on above:Result Comment: PERFORMED BY: [place] [address] PATHOLOGIST MANAGER FINANCIAL SERVICES OREN OWEN M.D.Performed By: #### BLAKE, CUU #### [place] [id number] USAGlucose [Mass/Vol]118 mg/dLNoDorothea Dix Hospital Physician GroupComment on above:Result Comment: Random Glucose Reference Range is dependent on time and content of last meal. Glucose of more than 200 mg/dL in a nonstressed, ambulatory subject supports the diagnosis of Diabetes Mellitus.Performed By: #### JESUSPLUS, CUU #### [place] [id number] USAGlucose [Mass/Vol]119 mg/dLHealthPark Medical Center Physician GroupComment on above:Result Comment: Random Glucose Reference Range is dependent on time and content of last meal. Glucose of more than 200 mg/dL in a nonstressed, ambulatory subject supports the diagnosis of Diabetes Mellitus. PERFORMED BY: [place] [address] PATHOLOGIST MANAGER FINANCIAL SERVICES OREN OWEN M.D.Performed By: #### JESUSPLUS, CUU #### [place] [id number] USANo Panel InformationOrdered By: Nas Pruett on 01-16-2024 Bedside Glucose CommentGlu2: cleaned [facility] Troponin I High Sensitivityon 08-52-7184Zamrvitp I High Fcnxkwjhiec45281.2 pg/mL Off scale high0.0-20.0[facility] Physician GroupComment on above:Result Comment: Critical Result I_TnIHS_d:13351.2 Called to and read back by: BRIDGETTE LUIS at: 01/16/2024 20:40:51 by:[id number] PERFORMED BY: [phone] PATHOLOGIST MANAGER FINANCIAL SERVICES OREN OWEN M.D.Performed By: #### HS TROP #### [place] [address] USATroponin I High Caivwafsaue326326.4 pg/mLOff scale high 0.0-20.0[facility] Physician GroupComment on above:Result Comment: Critical Result I_TnIHS_d:142508.4 Called to and read back by: BROOKE CANDELARIA at: 01/16/2024 18:52:06 by:[email or web address] PERFORMED BY: [place] [address] PATHOLOGIST MANAGER FINANCIAL SERVICES OREN OWEN M.D.Performed By: #### BLAKE, CUU #### [place] [id number] USATroponin I High Vvthubiirrk510441.2 pg/mLOff scale high 0.0-20.0[facility] Physician GroupComment on above:Result Comment: Critical Result I_TnIHS_d:381518.2 Called to and read back by: BROOKE CANDELARIA at: 01/16/2024 16:28:58 by:[id number] PERFORMED BY: [phone] PATHOLOGIST MANAGER FINANCIAL SERVICES OREN OWEN M.D.Performed By: #### BLAKE, CUU #### [place] [id number] USATroponin I High Cgjhnhwqzzw19052.4 pg/mLOff scale high 0.0-20.0[facility] Physician GroupComment on above:Result Comment: Critical Result I_TnIHS_d:14626.4 Called to and read back by: BROOKE CANDELARIA at: 01/16/2024 14:15:37 by:[id number] PERFORMED BY: [place] [address] PATHOLOGIST MANAGER FINANCIAL SERVICES OREN OWEN M.D.Performed By: #### BLAKE, CUU #### [facility] [address] [place] [address] USANo Panel InformationOrdered By: Willy Lambert on 07-71-2623Vompcijocmhoo Pathology TestSee commentKeenan Private HospitalComment on above:See report. Scanned copy available in EMR.Pathology Request for Lab Corpon 89-50-1644Ohimlwhkm Request for Lab CorpNormalThe [facility] Physician GroupComment on above:Order Comment: PATHOLOGY GI SPECIMEN Result Comment: See report. Scanned copy available in EMR. PERFORMED BY: [place] [address] PATHOLOGIST MANAGER FINANCIAL SERVICES OREN OWEN M.D.Performed By: #### PATH TO [facility] #### [facility] [address] [place] [address] USACholesterol [Mass/volume] in Serum or PlasmaOrdered By: Teo Al on 53-08-2047Vrcadxxpxab [Mass/Vol]91 mg/kTMcc072-813EqklprqlhKeenan Private HospitalComment on above:Chol less than 200 mg/dl low riskChol 201-239 mg/dl borderline riskChol 240 mg/dl and greater high riskResult Comment: Chol less than 200 mg/dl low risk Chol 201-239 mg/dl borderline risk Chol 240 mg/dl and greater high riskPerformed By: #### HETALUAJONATHAN, CUU #### [facility] [address] [place] [address] USACholesterol in LDL Calc [Mass/Vol]Ordered By: Teo Al on 89-83-0965Iaohyygiqup in LDL [Mass/Vol]37 mg/dL0-100[facility] Private HospitalComment on above:LDL ATP III CLASSIFICATIONLDL less than 100 mg/dL OptimalLDL 100-129 mg/dL Near or above jzptauwREX281-815 mg/dL Borderline highLDL 160-189 mg/dL HighLDL greater than 189 mg/dL Very high Cholesterol in VLDL Calc [Mass/Vol]Ordered By: Teo Al on 12-26-2023 Cholesterol in VLDL [Mass/Vol]18 mg/dLKeenan Private HospitalLipid Panelon 84-92-5433JZP Cholesterol,Wvjoveyjqe33 mg/dLNormal0-100[facility] Physician [facility] HospitalComment on above:Result Comment: LDL ATP III CLASSIFICATION LDL less than 100 mg/dL Optimal LDL 100-129 mg/dL Near or above optimal LDL 130-159 mg/dL Borderline high LDL 160-189 mg/dL High LDL greater than 189 mg/dL Very highPerformed By: #### BLAKE, CUU #### [facility] [address] [place] [address] USATriglyceride w/Djbnpj10 mg/dLNormal0-149[facility] Physician [facility] HospitalComment on above:Result Comment: TRIG ATP III CLASSIFICATION TRIG less than 150 mg/dL Normal TRIG 150-199 mg/dL Borderline high TRIG 200-500 mg/dL High TRIG greater than 500 mg/dL Very high Standard traceable to the Center for Disease Conrtrol and Prevention (CDC) test method.Performed By: #### BLAKE, CUU #### [facility] [address] [place] [address] USAVLDL XTPZCYZSABG63 mg/dLNormalThe [facility] Physician [facility] HospitalComment on above:Performed By: #### JESUSPLUS, CUU #### [facility] [address] [place] [address] USASerum or plasma high density lipoprotein (HDL) cholesterol measurementOrdered By: Teo Al on 91-38-9747Nmutlbfvuxn in HDL [Mass/Vol]35 mg/yHCrpdcf18-53YvawdwcxaKeenan Private HospitalComment on above: HDL CHOL ATP-III CLASSIFICATION Cardiovascular RiskHDL > or equal to 60 mg/dL LOWHDL < 40 mg/dL HIGHResult Comment: HDL CHOL ATP-III CLASSIFICATION Cardiovascular Risk HDL > or equal to 60 mg/dL LOW HDL < 40 mg/dL HIGHPerformed By: #### BLAKE CUU #### [facility] [address] [place] [address] USASerum or plasma total cholesterol/high density lipoprotein (HDL) cholesterol mass ratOrdered By: Teo Al on 12-26-2023 Cholesterol.total/Cholesterol in HDL [Mass ratio]2.6 {ratio}Normal<5.0[facility] Private HospitalComment on above:Result Comment: PERFORMED BY: [facility] [address] [place] [address] PATHOLOGIST MANAGER FINANCIAL SERVICES OREN OWEN M.D.Performed By: #### BLAKE, CUU #### [facility] [address] [place] [address] USATriglyceride [Mass/volume] in Serum or PlasmaOrdered By: Teo Al on 28-53-3205Xdfizecgbmmv [Mass/Vol]94 mg/dL0-149[facility] Private HospitalComment on above:TRIG ATP III CLASSIFICATIONTRIG less than 150 mg/dL NormalTRIG 150-199 mg/dL Borderline highTRIG 200-500 mg/dL High TRIG greater than 500 mg/dL Very highStandard traceable to the Center for Disease Conrtrol and Prevention (CDC) test method.Erythrocyte distribution width Auto (RBC) [Ratio]on 38-53-6829Iadonsvwspm distribution width (RBC) [Ratio]15.4 %High11.0-15.0[facility]an Private HospitalHematocrit Auto (Bld) [Volume fraction]on 70-99-4998Dxxrpcagbu (Bld) [Volume fraction]41.3 %Low42.0-54.0 [facility] Private HospitalHemoglobin [Mass/volume] in Bloodon 10-16-2023 Hemoglobin (Bld) [Mass/Vol]13.3 g/dLLow14.0-18.0[facility] Private HospitalLaboratory - Chemistry and Chemistry - challengeon 85-14-7612Dywkynxme [Mass/Vol]2.1 mg/dL1.8-2.4FBerger HospitalUrate [Mass/Vol]5.9 mg/dL3.5-7.2FBerger HospitalLeukocytes [#/volume] corrected for nucleated erythrocytes in Blood by Automated counon 44-85-5100LAP corrected for nucl RBC Auto (Bld) [#/Vol]9.3 10 3/uL4.0-11.0[facility] MCH Auto (RBC) [Entitic mass]on 75-15-0076EBI (RBC) [Entitic mass]27.8 pg 25.9-34.0Keenan Private HospitalMCHC Auto (RBC) [Mass/Vol]on 23-14-6729KGAM (RBC) [Mass/Vol]32.2 g/dL29.9-35.2FBerger HospitalMCV Auto (RBC) [Entitic vol]on 80-28-6757UKR (RBC) [Entitic vol]86.2 fL 80.0-94.0[facility]enan Private HospitalNo Panel Informationon 10-16-2023 Phosphorus Level2.7 mg/dL2.6-4.7FBerger HospitalPlatelet mean volume Auto (Bld) [Entitic vol]on 06-18-7555Dobnhsdu mean volume (Bld) [Entitic vol]10.1 fL9.5-13.5FBerger HospitalPlatelets Auto (Bld) [#/Vol] on 36-85-9738Aqbknvqnl (Bld) [#/Vol]197 10 3/qY402-391WcrkucranKeenan Private HospitalRBC Auto (Bld) [#/Vol]on 99-20-5368HXK (Bld) [#/Vol]4.79 10 6/uL4.70-6.10 [facility] HospitalLaboratory - Chemistry and Chemistry - challengeon 38-30-7465Jsbwdrvxq Ql (U)NegativeKeenan Private Hospital Glucose (U) [Mass/Vol]NegativeKeenan Private HospitalKetones Ql (U) [facility] HospitalpH (U)7.0 [pH][facility]tering Health Springfieldpecific gravity (U) [Rel density]1.010Keenan Private HospitalUrobilinogen (U) [Mass/Vol]0.2 mg/dLKeenan Private Hospital Laboratory - Specimen informationon 39-75-9723Rpbwt (U)LtYellowKeenan Private HospitalLaboratory - Urinalysison 75-03-2156Sysnxtxkd esterase Test strip Ql (U)LargeKeenan Private HospitalNitrite Ql (U)Positive [facility] Private HospitalProtein Ql (U)30Ke[facility] Private HospitalCreatinine (Bld) [Mass/Vol]Ordered By: Margarito Valentine on 08-18-2023 Creatinine [Mass/Vol]2.4 mg/dL0.6-1.3FBerger HospitalComment on above:ER/ESD physician is notified/shown all ISTAT results.Critical values may be confirmed by laboratorytesting ifdeemed necessary by ER attending doctor.No Panel InformationOrdered By: Margarito Valentine on 29-12-8938Ywqgwco Estimated GFR (eGFR)26.776Keenan Private HospitalUS.doppler Lower extremity vein - righton 75-31[place] [address] Ultrasound Report Signed Patient: ALEX ANDERSON MR#: [id number] : 1945 Acct:[id number] Age/Sex: 77 / M ADM Date: 07/31/23 Loc: RAD Attending Dr: Shahriar Lewis M.D. Ordering Physician: Shahriar Lewis Date of Service: 07/31/23 Procedure(s): US venous doppler LE RT Accession Number(s): [id number] cc: Shahriar Lewis; STANLEY EMERSON [place] [phone] Patient Name: ALEX ANDERSON MRN: [id number] date: 1945 Sex: M Assigned Patient Location: [facility] Current Patient Location: RAD Accession/Order Number: [id number] Exam Date: 07/31/2023 08:40 Report Date: 07/31/2023 [...] Signed By: 07/31/23 1050 DD/ 1047 TD/TT: Authors Motivational:TBHRadiology, Radiologist, MD - 07/31/2023 [place] [address] Ultrasound Report Signed Patient: ALEX ANDERSON MR#: [id number] : 1945 Acct:[id number] Age/Sex: 77 / M ADM Date: 07/31/23 Loc: RAD Attending Dr: Shahriar Lewis M.D. Ordering Physician: Shahriar Lewis Date of Service: 07/31/23 Procedure(s): US venous doppler LE RT Accession Number(s): [id number] cc: Shahriar Lewis; STANLEY EMERSON [place] [phone] Patient Name: ALEX ANDERSON MRN: [id number] date: 1945 Sex: M Assigned Patient Location: [facility] Current Patient Location: [facility] Accession/Order Number: [id number] Exam Date: 07/31/2023 08:40 Report Date: 07/31/2023 [...] Signed By: 07/31/23 1050 DD/ 1047 TD/TT: Authors Motivational: MARSHAL MadisonRadiology Study observation (narrative)MARSHAL Mena.doppler Lower extremity vein - rightOrdered By: Radiologist Radiology on 96-11-0269LYJ[facility] Work Phone: alanine aminotransferase [Enzymatic activity/volume] in Serum or PlasmaOrdered By: Celia Griffin on 77-81-0621OOP [Catalytic activity/Vol]17 U/L7-52Ke[facility] Private HospitalAlbumin [Mass/volume] in Serum or Plasma by Bromocresol green (BCG) dye binding methoOrdered By: Celia Griffin on 14-15-0301Icgpqiu BCG dye [Mass/Vol]4.2 g/dL3.5-5.7FBerger HospitalAlkaline phosphatase [Enzymatic activity/volume] in Serum or PlasmaOrdered By: Celia Griffin on 06-92-5695NSN [Catalytic activity/Vol]72 U/L 34-104Keenan Private HospitalAspartate aminotransferase [Enzymatic activity/volume] in Serum or PlasmaOrdered By: Celia Griffin on 25-38-5352SQT [Catalytic activity/Vol]16 U/A87-24ZrolclvumKeenan Private HospitalAutomated erythrocytes count in urine sediment (number/area)Ordered By: Celia Griffin on 42-63-7606RRX Auto (Urine sed) [#/Area]3-4 [HPF]0-4FBerger HospitalAutomated leukocytes count in urine sediment (number/area)Ordered By: Celia Griffin on 59-29-6649VCP Auto (Urine sed) [#/Area]50-100 [HPF]0-4FBerger HospitalBilirubin Test strip Ql (U)Ordered By: Celia Griffin on 49-44-2792Pqjgxgybm Ql (U)NegativeNegativeKeenan Private Hospital Bilirubin.total [Mass/volume] in Serum or PlasmaOrdered By: Celia Griffin on 49-34-7513Suncsngdn [Mass/Vol]0.5 mg/dL0.3-1.0[facility] Calcium [Mass/volume] in Serum or PlasmaOrdered By: Celia Griffin on 04-08-2023 Calcium [Mass/Vol]9.3 mg/dL8.6-10.3FBerger HospitalCarbon dioxide, total [Moles/volume] in Serum or PlasmaOrdered By: Celia Griffin on 30-69-7974PK3 [Moles/Vol]31.6 mmol/L21.0-31.0[facility] Chloride [Moles/volume] in Serum or PlasmaOrdered By: Celia Griffin on 04-08-2023 Chloride [Moles/Vol]107 mmol/W73-206CpfrauxuvKeenan Private HospitalCholesterol [Mass/volume] in Serum or PlasmaOrdered By: Teo Al on 04-08-2023 Cholesterol [Mass/Vol]107 mg/gK341-432BlhojmebcKeenan Private HospitalComment on above:Chol less than 200 mg/dl low riskChol 201-239 mg/dl borderline riskChol 240 mg/dl and greater high riskCholesterol in LDL Calc [Mass/Vol]Ordered By: Teo Al on 22-08-0261Xbxfsgcnaqx in LDL [Mass/Vol]47 mg/dL0-100[facility] Private HospitalComment on above:LDL ATP III CLASSIFICATIONLDL less than 100 mg/dL OptimalLDL 100-129 mg/dL Near or above ofcuaysYLU658-799 mg/dL Borderline highLDL 160-189 mg/dL HighLDL greater than 189 mg/dL Very high Cholesterol in VLDL Calc [Mass/Vol]Ordered By: Teo Al on 04-08-2023 Cholesterol in VLDL [Mass/Vol]26 mg/dLKeenan Private HospitalColor Auto (U)Ordered By: Celia Griffin on 16-01-3496Gojbq (U)YellowYellowKeenan Private HospitalCreatinine [Mass/volume] in Serum or PlasmaOrdered By: Celia Griffin 64-88-0880Jcxjpruxmr [Mass/Vol]1.41 mg/dL0.70-1.30[facility] Private HospitalCreatinine [Mass/volume] in UrineOrdered By: Celia Griffin 84-20-9171Dyiklcfuoe (U) [Mass/Vol]90.0 mg/dL14.0-26.0[facility] Private HospitalErythrocyte distribution width Auto (RBC) [Ratio]Ordered By: Celia Griffin on 35-81-6513Gdjnpdzzota distribution width (RBC) [Ratio]15.7 %12.0-14.8 [facility] Private HospitalFerritin [Mass/volume] in Serum or Plasma Ordered By: Celia Griffin 83-78-8313Luiohsyv [Mass/Vol]34.1 ng/mL23.9-336.2 [facility] Private HospitalFolate [Mass/volume] in Serum or PlasmaOrdered By: Celia Griffin 67-44-8366Yxynmv [Mass/Vol]34.0 ng/mL>5.9[facility] Private HospitalComment on above:Folate reference range: >5.9 ng/mlThe WHO technical consultation on folate and vitamin h57ugziicrkmnvv has determined that folate concentrations lessthan 4 ng/ml are considered deficient.Globulin Calc (S) [Mass/Vol]Ordered By: Celia Griffin 81-04-6924Fslcvygb (S) [Mass/Vol]2.8 g/dLKeenan Private HospitalGlucose [Mass/volume] in Serum or Plasma Ordered By: Celia Griffin 42-70-8974Ebhrole [Mass/Vol]107 mg/yK26-612OvaxndrqjKeenan Private HospitalComment on above:ADA recommended reference rangeRandom Glucose Reference Range is dependent on time and content of last meal. Glucose of more than 200 mg/dL in a nonstressed, ambulatory subject supports the diagnosisof Diabetes Mellitus.Hematocrit Auto (Bld) [Volume fraction]Ordered By: Celia Griffin 39-94-3362Cblaidnqll (Bld) [Volume fraction]43.8 %38.8-50.0 [facility] Private HospitalHemoglobin [Mass/volume] in BloodOrdered By: Celia Griffin 27-39-8064Hbwvdqykyo (Bld) [Mass/Vol]14.3 g/dL13.0-17.0[facility]an Private HospitalIron [Mass/volume] in Serum or PlasmaOrdered By: Celia Griffin on 25-41-2098Syko [Mass/Vol]53 ug/gK18-190UsdgjatlpKeenan Private HospitalIron binding capacity [Mass/volume] in Serum or PlasmaOrdered By: Celia Griffin on 10-02-2285Velf binding capacity [Mass/Vol]370 ug/pH522-579HhlalggmfKeenan Private HospitalIron saturation [Mass Fraction] in Serum or PlasmaOrdered By: Celia Griffin on 99-23-2019Kzsc saturation [Mass fraction]14.3 %20-50 [facility] HospitalKetones Auto test strip (U) [Mass/Vol]Ordered By: Celia Griffin on 82-80-4109Gmhhuxa (U) [Mass/Vol]NegativeNegativeKeenan Private HospitalLaboratory - UrinalysisOrdered By: Celia Griffin on 75-61-9605Vfllirr casts LM Ql (Urine sed)9-19 [LPF]0-8[facility] Private HospitalLeukocytes [#/volume] corrected for nucleated erythrocytes in Blood by Automated counOrdered By: Celia Griffin on 21-59-8984ZHD corrected for nucl RBC Auto (Bld) [#/Vol]8.4 10*3/uL4.1-10.5FSamaritan North [facility] Center Auto (RBC) [Entitic mass]Ordered By: Celia Griffin on 84-40-5066FGT (RBC) [Entitic mass]27.3 pg27.5-35.2FWyandot Memorial HospitalHC Auto (RBC) [Mass/Vol] Ordered By: Celia Griffin on 11-93-8677WVWS (RBC) [Mass/Vol]32.6 g/dL32.5-35.6 [facility] HospitalMCV Auto (RBC) [Entitic vol]Ordered By: Celia Griffin on 45-64-8390EVF (RBC) [Entitic vol]83.8 fL83.5-101[facility] HospitalMagnesium [Mass/volume] in Serum or PlasmaOrdered By: Celia Griffin on 54-66-9541Oivplbhoh [Mass/Vol]2.2 mg/dL1.9-2.7FBerger HospitalNitrite Test strip Ql (U)Ordered By: Celia Griffin on 01-28-6264Fvzvlzl Ql (U)PositiveNegativeKeenan Private HospitalNo Panel InformationOrdered By: Celia Griffin on 55-36-1846Kohogovvr GFR (CKD-EPI)50.692 mL/MinKeenan Private HospitalPharmacy Creatinine Clearance (ChemN/AFBerger HospitalParathyrin.intact [Mass/volume] in Serum or PlasmaOrdered By: Celia Griffin on 11-39-6321Upugkpkaza.intact [Mass/Vol]76.6 pg/xV31-42ZdfecfgqfKeenan Private HospitalPhosphate [Mass/volume] in Serum or PlasmaOrdered By: Celia Griffin 16-43-0148Vcbwmdkrz [Mass/Vol]2.8 mg/dL2.5-4.5FBerger HospitalPlatelet mean volume Auto (Bld) [Entitic vol]Ordered By: Celia Griffin on 49-90-7521Nozfehgq mean volume (Bld) [Entitic vol]8.6 fL6.6-10.1 [facility] HospitalPlatelets Auto (Bld) [#/Vol]Ordered By: Celia Griffin on 30-86-0953Xgokuvyzb (Bld) [#/Vol]201 10*3/eM096-634YkjeqdoohKeenan Private HospitalPotassium [Moles/volume] in Serum or PlasmaOrdered By: Celia Griffin 35-85-8215Kvueydjqm [Moles/Vol]4.5 mmol/L3.5-5.1FBerger HospitalProtein Auto test strip (U) [Mass/Vol]Ordered By: Celia Griffin on 35-06-5654Ziovhyk (U) [Mass/Vol]Trace mg/dLNegativeKeenan Private HospitalProtein [Mass/volume] in Serum or PlasmaOrdered By: Celia Griffin on 82-30-5574Uopsxfx [Mass/Vol]7.0 g/dL6.4-8.9[facility] Protein [Mass/volume] in UrineOrdered By: Celia Griffin on 03-89-6770Hcygfbe (U) [Mass/Vol]30 mg/dL0-9[facility] HospitalRBC Auto (Bld) [#/Vol] Ordered By: Celia Griffin on 87-29-8694MLH (Bld) [#/Vol]5.22 10*6/uL3.90-5.60 [facility] Springfielderum or plasma albumin/globulin mass ratio Ordered By: Celia Griffin on 36-78-2212Jrofeoh/Globulin [Mass ratio]1.5 {ratio} [facility] Springfielderum or plasma anion gap determinationOrdered By: Celia Griffin on 38-77-3477Jtxou gap [Moles/Vol]8.9 mmol/L6.0-15.0[facility] Springfielderum or plasma high density lipoprotein (HDL) cholesterol measurementOrdered By: Teo Al on 22-86-3436Dncnynorrkn in HDL [Mass/Vol]34 mg/sP44-22XanpwiyneKeenan Private HospitalComment on above:HDL CHOL ATP-III CLASSIFICATION Cardiovascular RiskHDL > or equal to 60 mg/dL LOWHDL < 40 mg/dL HIGHSerum or plasma total cholesterol/high density lipoprotein (HDL) cholesterol mass ratOrdered By: Teo Al on 04-08-2023 Cholesterol.total/Cholesterol in HDL [Mass ratio]3.1 {ratio}<5.0[facility] Springfieldodium [Moles/volume] in Serum or PlasmaOrdered By: Celia Griffin on 15-69-8691Hlstwy [Moles/Vol]143 mmol/N954-631LqmkxlqdnKettering Health Springfieldpecific gravity Auto test strip (U) [Rel density]Ordered By: Celia Griffin on 49-97-9981Subnkcun gravity (U) [Rel density]1.0171.001-1.030[facility] Springfieldquamous epithelial cells detection in urine sediment by light microscopyOrdered By: Celia Griffin on 83-59-8163Kjtpfbjimq cells.squamous LM Ql (Urine sed)0-1 [HPF]0-2FBerger HospitalTransferrin [Mass/volume] in Serum or PlasmaOrdered By: Celia Griffin on 04-08-2023 Transferrin [Mass/Vol]264 mg/lW566-736GsqneunjsKeenan Private Hospital Triglyceride [Mass/volume] in Serum or PlasmaOrdered By: Teo Al on 02-58-8862Bjpotxquetwb [Mass/Vol]131 mg/dL0-149[facility] Comment on above:TRIG ATP III CLASSIFICATIONTRIG less than 150 mg/dL NormalTRIG 150-199 mg/dL Borderline highTRIG 200-500 mg/dL High TRIG greater than 500 mg/dL Very highStandard traceable to the Center for Disease Conrtrol and Prevention (CDC) test method.Urate [Mass/volume] in Serum or PlasmaOrdered By: Celia Griffin on 57-72-0699Hzgbl [Mass/Vol]6.0 mg/dL4.4-7.6FBerger Hospital Urea nitrogen [Mass/volume] in Serum or PlasmaOrdered By: Celia Griffin on 32-14-1717Atlq nitrogen [Mass/Vol]27 mg/dL7-25[facility] Urine bacteria detection by automated methodOrdered By: Celia Griffin on 18-07-7561Hxjodrfa Auto Ql (U)4+None SeenKeenan Private HospitalUrine clarity by refractometry automatedOrdered By: Celia Griffin on 04-22-4243Nhlxwut Refractometry automated (U)CloudyCleLouis Stokes Cleveland VA Medical CenterUrine glucose measurement by automated test strip (mass/volume)Ordered By: Celia Griffin on 87-53-3556Qczrrnk Auto test strip (U) [Mass/Vol]Normal mg/dLNormal [facility] HospitalUrine hemoglobin detection by automated test stripOrdered By: Celia Griffin on 52-42-5998Khbgvwafww Auto test strip Ql (U)1+ NegativeKeenan Private HospitalUrine leukocyte esterase detection by automated test stripOrdered By: Celia Griffin on 41-59-4393Rdfxvrcye esterase Auto test strip Ql (U)4+NegativeKeenan Private HospitalUrine protein/creatinine ratioOrdered By: Celia Griffin on 89-35-6623Gdvabqi/Creatinine (U) [Ratio]333 mg/g{Cre}0-200Ke[facility] Private HospitalUrobilinogen Auto test strip (U) [Mass/Vol]Ordered By: Celia Griffin on 78-82-8742Aohokofxapze (U) [Mass/Vol]Normal mg/dLNormalKeenan Private HospitalVitamin B12 ser/plasOrdered By: Celia Griffin on 51-46-0120Illtqmugp (Vitamin B12) [Mass/Vol] 301 pg/aP737-371NokfchgwpKeenan Private HospitalVitamin D+Metabolites [Mass/volume] in Serum or PlasmaOrdered By: Celia Griffin on 44-82-4967Szfsrny D+Metabolites [Mass/Vol]37.5 ng/vT70-744SkxfakxwxKeenan Private HospitalComment on above:VITAMIN D STATUS 25(OH)VITAMIN D RANGE (ng/mL) Deficient <20 Insufficient 20 to <01Fmimckckxc45 to 100Reference: Sixto MF,Federico MATA, Palomo LESLIE, et al. Evaluation,treatment, and prevention of vitamin D deficiency; an Endocrine Society clinical practice guideline. JCEM. 2010; 96 (7):1911-30.pH Auto test strip (U)Ordered By: Celia Griffin on 82-59-9681iD (U) 7.0 [pH]5.0-9.0[facility] HospitalOffice Visit (Cardiology)on 27-79-0472Ldtzdz-up visitDiagnoses/Problems Assessed Hypertension (401.9) (I10) Dyslipidemia (272.4) [...] Lipid Panel; Status:Active - Retrospective Authorization; Requested for:[id number]; Overweight with body mass index (BMI) of 27 to 27.9 in adult Healthy Weight Tips; Status:Complete - Retrospective Authorization; Done: 03Vvm0187 Some eating tips that can help you lose weight.; Status:Complete - Retrospective Authorization; Done: [id number] SocHx: Current smoker Start: Aspirin 81 MG Oral Tablet Delayed Release; TAKE 1 TABLET DAILY Tobacco Use Screening; Status:Complete; Done: 65Nvq0516 You need to stop smoking. Though it is not easy, more than half of all adult smokers have quit. We encourage you to write down all the reasons you should quit smoking and set a quit date for yourself. Ask us how we can help. You may also call [phone] Diego OperaNOW for free resources and assistance.; Status:Complete - Retrospective Authorization; Done: [id number] Tobacco Use Screening; Status:Complete; Done: 54Ipv2100 Patient Instructions Please bring all medicines, vitamins, [...] negative for complaint. Vitals Vital Signs Recorded: 08Ras1833 09:57AM Heart Rate72, L Radial Pfhjdrug986, LUE, Sitting Mljjuyioh13, LUE, Sitting Height6 ft 2 in Ckmegs887 lb BMI Hlatabtfcc70.35 kg/m2 BSA Calculat (more content not included)...NormalUH TouchworksTobacco Screening. on 68-11-8036Crnl risk assessmenta) No falls within the last yearDayton [facility] Hospital [employer] 250 DO Work Phone: Tobacco use status CPHSa) Yes-[facility] [employer] 250 DO Work Phone: Tobacco Screening.YesMP-[place] [address] DO Work Phone: CULTURE URINEon [phone] URINEIsolate 1 Pseudomonas aeruginosa >100,000 cfu/mL of ORGANISM 1 Pseudomonas aeruginosa ANTIBIOTIC M.I.C RX STATUS Piperacillin/Tazobactam <=4 S F Ceftazidime <=1 S F Imipenem 2 S F Amikacin <=2 S F Gentamicin 2 S F Tobramycin <=1 S F Ciprofloxacin <=0.25 S F Levofloxacin <=0.12 S FNormalRegency Hospital CompanyComment on above:Performed By: #### URTPCR #### [facility] [address] [place] [address] Dr. Karen GraceULI, URINARYon ,8 DihydroxyadenineSelect Medical Specialty Hospital - TrumbullComment on above:Performed By: #### UA #### [facility] [address] [place] [address] Dr. Karen PierceAmmonium Acid UrateNBlanchard Valley Health System Bluffton HospitalComment on above: Performed By: #### UA #### [facility] [address] [place] [address] Dr. Karen Skaggsirubin Ql (U)[facility] TrumbullComharper university hospital on above: Performed By: #### UA #### [facility] [address] [place] [address] Dr. Karen Bergeron Oxalate DihydrateNBlanchard Valley Health System Bluffton HospitalComment on above: Performed By: #### UA #### [facility] [address] [address] [address] Karen BergeronHPO4 (Brushite)[facility] - TrumbullComment on above: Performed By: #### UA #### [facility] [address] [place] [address] Dr. Karen Graceium BilirubinateNBlanchard Valley Health System Bluffton HospitalComharper university hospital on above: Performed By: #### UA #### [facility] [address] [place] [address] Dr. Karen Graceium CarbonateSelect Medical Specialty Hospital - TrumbullComment on above: Performed By: #### UA #### [facility] [address] [address] [address] Karen Rivera Oxalate Lxjsbeeqmoo702 %[facility] Comment on above:Performed By: #### UA #### [facility] [address] [address] [address] Karen Graceium PalmitateSelect Medical Specialty Hospital - TrumbullComment on above: Performed By: #### UA #### [facility] [address] [address] [address] Karen Graceium PhosphateNoWayne HospitalComment on above: Performed By: #### UA #### [facility] [address] [address] [address] Karen Rivera StearateNormalRegency Hospital CompanyComharper university hospital on above: Performed By: #### UA #### [facility] [address] [address] [address] Karen PierceCarbonate ApatiteSelect Medical Specialty Hospital - TrumbullComment on above: Performed By: #### UA #### [facility] [address] [address] [address] Karen PierceCellular MaterialSelect Medical Specialty Hospital - TrumbullComharper university hospital on above: Performed By: #### UA #### [facility] [address] [address] [address] Karen PierceCholesterolSelect Medical Specialty Hospital - TrumbullComharper university hospital on above:Performed By: #### UA #### [facility] [address] [address] [address] Karen Salomon (U)[facility] HospitalComharper university hospital on above: Performed By: #### UA #### [facility] [address] [address] [address] Karen PierceCommentSelect Medical Specialty Hospital - TrumbullComharper university hospital on above:Performed By: #### UA #### [facility] [address] [address] [address] Karen Ragland:[facility] on above:Result Comment: Physician questions regarding Calculi Analysis contact [facility] at: [phone].Performed By: #### UA #### [facility] [address] [place] [address] Dr. Karen EastonpositionCommentProMedica Memorial Hospital on above: Result Comment: Percentage (Represents the % composition)Performed By: #### UA #### [facility] [address] [place] [address] Dr. Karen PierceCystineAshtabula General Hospitalment on above:Performed By: #### UA #### [facility] [address] [place] [address] Dr. Karen Chinclmer:CommentProMedica Memorial Hospital on above: Result Comment: This test was developed and its performance characteristics determined by [employer]. It has not been cleared or approved by the Food and Drug Administration.Performed By: #### UA #### [facility] [address] [place] [address] Dr. Karen PierceDried BloodProMedica Memorial Hospital on above:Performed By: #### UA #### [facility] [address] [place] [address] Dr. Karen PierceDrug or MetaboliteProMedica Memorial Hospital on above: Performed By: #### UA #### [facility] [address] [place] [address] Dr. Karen PierceHydroxyapatiteProMedica Memorial Hospital on above: Performed By: #### UA #### [facility] [address] [place] [address] Dr. Karen PierceMg NH4 PO4 (Struvite)[facility] - TrumbullComment on above: Performed By: #### UA #### [facility] [address] [place] [address] Dr. Karen PierceMgHPO4 (Newberyite)NormalRegency Hospital CompanyComment on above: Performed By: #### UA #### [facility] [address] [place] [address] Dr. Karen PierceOther component(s)NormalRegency Hospital CompanyComment on above: Performed By: #### UA #### [facility] [address] [address] [address] Karen Acosta.[facility] on above:Performed By: #### UA #### [facility] [address] [address] [address] Karen JaimesProMedica Memorial Hospital on above:Result Comment: Photograph will follow under a separate coverPerformed By: #### UA #### [facility] [address] [address] [address] Karen Rubin note:CommentProMedica Memorial Hospital on above: Result Comment: Calculi report will follow via computer, mail or marine habitat resource specialist delivery.Performed By: #### UA #### [facility] [address] [address] [address] Karen MalloryEabbyFlal3e3HkxzxpCl[address] on above:Result Comment: Multiple pieces received. Dimensions of the largest piece reported.Performed By: #### UA #### [facility] [address] [address] [address] Karen Harrisum Acid UrateNWVUMedicine Barnesville Hospital on above: Performed By: #### UA #### [facility] [address] [address] [address] Karen IngramomdanielaProMedica Memorial Hospital on above:Result Comment: Urinary BladderPerformed By: #### UA #### [facility] [address] [address] [address] Karen AshleyneProMedica Memorial Hospital on above:Performed By: #### UA #### [facility] [address] [address] [address] Karen Carnes AcidProMedica Memorial Hospital on above:Performed By: #### UA #### [facility] [address] [address] [address] Karne PierceUric Acid DihydrateNWVUMedicine Barnesville Hospital on above: Performed By: #### UA #### [facility] [address] [address] [address] Karen Sandoval158 mgSelect Medical Specialty Hospital - TrumbullComment on above:Performed By: #### UA #### [facility] [address] [address] [address] Karen RamireznthineSelect Medical Specialty Hospital - TrumbullComharper university hospital on above:Performed By: #### UA #### [facility] [address] [address] [address] Karen Ryder URINE PROFILEon 97-82-4653Xozgfzloa Ql (U)NegativeNormal NEGATIVERegency Hospital CompanyComment on above:Performed By: #### BONITA ERUR #### [facility] [address] [place] [address] Dr. Karen PierceClarity (U)CLEARNormalCLEARRegency Hospital CompanyComment on above: Performed By: #### JOVAN MESAR #### [facility] [address] [place] [address] Dr. Karen Parkslor (U)YELLOWNormalYELLOWRegency Hospital CompanyComment on above: Performed By: #### JOVAN MESAR #### [facility] [address] [place] [address] Dr. Karen Daigle micrscopic examination will be performed if indicated. NormalRegency Hospital CompanyComment on above:Performed By: #### BONITA ERUR #### [facility] [address] [place] [address] Dr. Karen PierceGlucose Ql (U)NegativeNormalNEGATIVERegency Hospital CompanyComment on above:Performed By: #### BONITA ERUR #### [facility] [address] [place] [address] Dr. Karen PierceHemoglobin Ql (U)LARGEAbnormalNEGATIVELima Memorial Hospital on above:Performed By: #### BONITA ERUR #### [facility] [address] [address] [address] Karen PierceKetones Ql (U)NegativeNormalNEGATIVEThe [facility] HospitalComment on above:Performed By: #### BONITA ERUR #### [facility] [address] [address] [address] Karen PierceLEUKOCYTESLARGEAbnormalNEGATIVEThe [facility] HospitalComment on above:Performed By: #### BONITA ERUR #### [facility] [address] [address] [address] Karen Zamoraite Ql (U)PositiveAbnormalNEGATIVEThe [facility] on above:Performed By: #### BONITA ERUR #### [facility] [address] [address] [address] Karen Macias (U)5.5 [pH]Normal5-9The [facility] HospitalComment on above: Performed By: #### BONITA ERUR #### [facility] [address] [place] [address] Dr. Karen PierceProtein (U) [Mass/Vol]100 mg/dLAbnormalNEGATIVE/ TRACEThe [facility] HospitalComment on above:Performed By: #### JOVAN MESAR #### [facility] [address] [place] [address] Dr. Karen Garcia GRAVITY1.526Bpcewr0.005-<=1.025The [facility] HospitalComment on above:Performed By: #### JOVAN MESAR #### [facility] [address] [place] [address] Dr. Karen Moulton MICRO INDINDICATEDNormalThe [facility] HospitalComment on above: Performed By: #### BONITA ERUR #### [facility] [address] [place] [address] Dr. Karen Hernandez Qn (U)1.0 {Tonio'U}/dLNormal0.2 - 1.0The [facility] HospitalComment on above:Performed By: #### BONITA ERUR #### [facility] [address] [place] [address] Dr. Karen Vázquez MICROSCOPIC ONLYon [id number]KDQL SEEN [facility] CompanyComharper university hospital on above:Performed By: #### BONITA ERUR #### [facility] [address] [place] [address] Dr. Karen Hunt identified Cx Nom (U)INDICATEDSelect Medical Specialty Hospital - TrumbullComharper university hospital on above:Performed By: #### BONITA, ERUR #### [facility] [address] [place] [address] Dr. Karen Patterson SEENNormalNONE SEENRegency Hospital CompanyComharper university hospital on above:Performed By: #### BONITA ERUR #### [facility] [address] [place] [address] Dr. Karen Jade LM Nom (Urine sed)NONE SEENNormalNONE SEENCoshocton Regional Medical Center on above:Performed By: #### JOVAN MESAR #### [facility] [address] [place] [address] Dr. Jones ChangEpithelial cells LM Ql (Urine sed)NONE SEENNormalNONE SEEN /RARE [facility] CompanyComharper university hospital on above:Performed By: #### JOVAN MESAR #### [facility] [address] [place] [address] Dr. Karen Chan SEENrmgaNONE SEENRegency Hospital CompanyComharper university hospital on above:Performed By: #### BONITA ERUR #### [facility] [address] [place] [address] Dr. Karen Salinas (U) [#/Vol]/uLAbnormal0-2The [facility] on above:Performed By: #### JOVAN MESAR #### [facility] [address] [place] [address] Dr. Karen ChristiansonQnmhsWRI35-92BhiscekyGHGC SEENRegency Hospital CompanyComharper university hospital on above: Performed By: #### JOVAN MESAR #### [facility] [address] [place] [address] Dr. Karen Jung INTACTon [id number], Amycnz90 pg/bCIdhyef02-12Clg [facility] HospitalComment on above:Performed By: #### PTHINT #### [facility] [address] [place] [address] Dr. Karen PierceFERRITINon 98-99-3571Fkwjyzmq [Mass/Vol]49.0 ng/mLNormal 26.0-388.0The [facility] HospitalComment on above:Performed By: #### URTPCR #### [facility] [address] [place] [address] Dr. Karen Simms AND TIBCon 09-04-2022% HRPSDIOIIO71.3 %NormalThe [facility] HospitalComment on above:Performed By: #### URTPCR #### [facility] [address] [place] [address] Dr. Karen Simms [Mass/Vol]33.0 ug/dLCritically low65.0-175.0The [facility] HospitalComment on above:Performed By: #### URTPCR #### [facility] [address] [place] [address] Dr. Karen PierceTIBQuynh QRGWTP682.0 ug/jRBafqnq582.0-450.0The [facility] Comment on above:Performed By: #### URTPCR #### [facility] [address] [place] [address] Dr. Karen Lanier RANDOMon 29-28-8213Racfdrokt Ql (U)NegativeNormalNEGATIVEThe [facility] HospitalComment on above:Performed By: #### UA #### [facility] [address] [place] [address] Dr. Karen Wangarity (U)CLEARNormalCLEARThe [facility] HospitalComment on above: Performed By: #### UA #### [facility] [address] [place] [address] Dr. Karen Salomon (U)LT. YELLOWNormalYELLOWThe [facility] HospitalComment on above:Performed By: #### UA #### [facility] [address] [address] [address] Karen PierceGlucose Ql (U)NegativeNormalNEGATIVERegency Hospital CompanyComment on above:Performed By: #### UA #### [facility] [address] [address] [address] Karen PierceHemoglobin Ql (U)MODERATEAbnormalNEGATIVERegency Hospital Company Comment on above:Performed By: #### UA #### [facility] [address] [address] [address] Karen PierceKetones Ql (U)NegativeNormalNEGATIVERegency Hospital CompanyComment on above:Performed By: #### UA #### [facility] [address] [place] [address] Dr. Karen PierceLEUKOCYTESLARGEAbnormgaNEGATIVERegency Hospital CompanyComment on above:Performed By: #### UA #### [facility] [address] [place] [address] Dr. Karen PierceNitrite Ql (U)PositiveAbnormalNEGPaulding County Hospital Comment on above:Performed By: #### UA #### [facility] [address] [address] [address] Karen PiercepH (U)6.5 [pH]Normal5-9The [facility] HospitalComment on above: Performed By: #### UA #### [facility] [address] [place] [address] Dr. Karen PierceSPEC GRAVITY1.856Kqijpy2.005-<=1.025The [facility] HospitalComment on above:Performed By: #### UA #### [facility] [address] [place] [address] Dr. Karen Lanier YMBFIHH16 mg/dlAbnormalNEGATIVE/ TRACERegency Hospital Company Comment on above:Performed By: #### UA #### [facility] [address] [place] [address] Dr. Karne PierceUrobilinogen Qn (U)0.2 {Tonio'U}/dLNormal0.2 - 1.0The [facility] HospitalComment on above:Performed By: #### UA #### [facility] [address] [place] [address] Dr. Karen Vázquez T PROTEIN CREAT RATIOon 29-82-2868Wcyvxyk (U) [Mass/Vol] 65.2 mg/dLCritically high<=12.0The [facility] HospitalComment on above:Performed By: #### URTPCR #### [facility] [address] [place] [address] Dr. Karen Moulton PROT CREAT RAT0.76NoWayne HospitalComment on above: Performed By: #### URTPCR #### [facility] [address] [place] [address] Dr. Karen Vázquez CREAT85.95 mg/oBHybvtk06.00-300.00[facility] Comment on above:Performed By: #### URTPCR #### [facility] [address] [place] [address] Dr. Karen Ruffin B12 AND FOLATEon 75-25-4607Eoyhvazcv (Vitamin B12) [Mass/Vol] 279.0 pg/hRRzeqhf664.0-986.0[facility] CompanyComharper university hospital on above:Performed By: #### URTPCR #### [facility] [address] [place] [address] Dr. Karen PierceFOLATE17.80 ng/mLNormal8.60-58.90[facility] on above:Performed By: #### URTPCR #### [facility] [address] [place] [address] Dr. Karen PierceVITAMIN D 25 OHon 48-07-1705PRO D 25-OH29.9 ng/mLNormalRegency Hospital CompanyComment on above:Performed By: #### URTPCR #### [facility] [address] [place] [address] Dr. Karen Ruffin D RANGES[place] BELOWSelect Medical Specialty Hospital - TrumbullComment on above: Result Comment: <20 ng/mL Vit D deficient 20 - <30 ng/mL Vit D insufficient 30 - 100 ng/mL Vit D sufficient >100 ng/mL Potential ToxicityPerformed By: #### URTPCR #### [facility] [address] [place] [address] Dr. Karen Waters AUTO DIFFon 20-16-9502XHPW #0.1 103/ulNormal0.0-0.1[facility] CompanyComment on above:Performed By: #### CBC #### [facility] [address] [place] [address] Dr. Karen PierceBasophils/100 WBC (Bld)0.7 %Normal0.2-2.0[facility] Comment on above:Performed By: #### CBC #### [facility] [address] [place] [address] Dr. Karen Valente #0.2 103/ulNormal0.0-0.7The [facility] HospitalComment on above: Performed By: #### CBC #### [facility] [address] [place] [address] Dr. Karen Reyesosinophils/100 WBC (Bld)2.6 %Normal0.9-7.0[facility] Comment on above:Performed By: #### CBC #### [facility] [address] [place] [address] Dr. Karen Reyesrythrocyte distribution width (RBC) [Ratio]13.8 %Pspgio43.0-15.0 [facility] CompanyComment on above:Performed By: #### CBC #### [facility] [address] [place] [address] Dr. Karen PierceHematocrit (Bld) [Volume fraction]38.9 %Critically low42.0-54.0 [facility] CompanyComment on above:Performed By: #### CBC #### [facility] [address] [place] [address] Dr. Karen PierceHemoglobin (Bld) [Mass/Vol]12.3 g/dLCritically low14.0-18.0The [facility] HospitalComment on above:Performed By: #### CBC #### [facility] [address] [place] [address] Dr. Karen Ayala #0.01 10e3/ulNormal0.00-0.03The [facility] HospitalComment on above:Performed By: #### CBC #### [facility] [address] [place] [address] Dr. Karen Ayala %0.1 %Normal0.0-0.5The [facility] HospitalComment on above: Performed By: #### CBC #### [facility] [address] [place] [address] Dr. Karen Torres #1.9 103/ulNormal1.2-3.8The [facility] HospitalComment on above:Performed By: #### CBC #### [facility] [address] [place] [address] Dr. Karen Brandthocytes/100 WBC (Bld)27.0 %Iwmcrt79.5-60.0The [facility] HospitalComment on above:Performed By: #### CBC #### [facility] [address] [place] [address] Dr. Karen GarzaUAL DIFF REQNONormalThe [facility] HospitalComment on above: Performed By: #### CBC #### [facility] [address] [place] [address] Dr. Karen Whitt (RBC) [Entitic mass]27.8 gvRhyhpr28.9-34.0The [facility] HospitalComment on above:Performed By: #### CBC #### [facility] [address] [place] [address] Dr. Karen Michael (RBC) [Mass/Vol]31.6 g/oWUxekrl87.9-35.2The [facility] HospitalComment on above:Performed By: #### CBC #### [facility] [address] [place] [address] Dr. Karen Michael (RBC) [Entitic vol]87.8 oDKlnghy70.0-94.0The [facility] HospitalComment on above:Performed By: #### CBC #### [facility] [address] [place] [address] Dr. Karen Monteiro #0.6 103/ulNormal0.3-0.8The [facility] HospitalComment on above:Performed By: #### CBC #### [facility] [address] [place] [address] Dr. Karen Elizabethocytes/100 WBC (Bld)8.8 %Normal1.7-12.0The [facility] Comment on above:Performed By: #### CBC #### [facility] [address] [place] [address] Dr. Karen Cronin #4.4 103/ulNormal1.4-6.5The [facility] HospitalComment on above:Performed By: #### CBC #### [facility] [address] [place] [address] Dr. Karen Bakerutrophils/100 WBC (Bld)60.8 %Raclrn96.0-75.0The [facility] HospitalComment on above:Performed By: #### CBC #### [facility] [address] [place] [address] Dr. Karen Amandalet mean volume (Bld) [Entitic vol]9.9 fLNormal9.5-13.5The [facility] HospitalComment on above:Performed By: #### CBC #### [facility] [address] [place] [address] Dr. Karen PiercePLT181 103/rxVxwevx086-412Rzv [facility] HospitalComment on above: Performed By: #### CBC #### [facility] [address] [place] [address] Dr. Karen PierceRBC4.43 106/ulCritically low4.70-6.10The [facility] HospitalComment on above:Performed By: #### CBC #### [facility] [address] [place] [address] Dr. Karen PierceWBC7.2 103/ulNormal4.0-11.0The [facility] HospitalComment on above: Performed By: #### CBC #### [facility] [address] [place] [address] Dr. Karen PierceMAGNESIUMon 70-60-7048Doyysoker [Mass/Vol]2.2 mg/dLNormal1.8-2.4 The [facility] HospitalComment on above:Performed By: #### UA #### [facility] [address] [place] [address] Dr. Karen PiercePHOSPHORUSon 47-25-1087Lnhwjieww [Mass/Vol]2.9 mg/dLNormal2.6-4.7 The [facility] HospitalComment on above:Performed By: #### UA #### [facility] [address] [place] [address] Dr. Karen PiercePROF 14(COMP METB)on 75-34-7626Yqratkg [Mass/Vol]3.5 g/dLNormal 3.4-5.0The [facility] HospitalComment on above:Performed By: #### PTHINT #### [facility] [address] [place] [address] Dr. Karen PierceAlbumin/Globulin [Mass ratio]1.0 {ratio}NormalThe [facility] HospitalComment on above:Performed By: #### PTHINT #### [facility] [address] [place] [address] Dr. Karen Murillo [Catalytic activity/Vol]86 U/BXboumn52-546Kth [facility] Hospitalment on above:Performed By: #### PTHINT #### [facility] [address] [place] [address] Dr. Karen Matthew [Catalytic activity/Vol]17 U/ZGpztqw66-50Bqm [facility] Hospitalment on above:Performed By: #### PTHINT #### [facility] [address] [place] [address] Dr. Karen Landon gap [Moles/Vol]13.0 mmol/LNormalThe [facility] on above:Performed By: #### PTHINT #### [facility] [address] [place] [address] Dr. Karen Ch [Catalytic activity/Vol]14 U/LCritically ktt56-68Fdh San Antonio HospitalComment on above:Performed By: #### PTHINT #### [facility] [address] [address] [address] Karen PierceBilirubin [Mass/Vol]0.3 mg/dLNormal0.2-1.0[facility] Comment on above:Performed By: #### PTHINT #### [facility] [address] [place] [address] Dr. Karen PierceCO2 [Moles/Vol]27.6 mmol/CZckjju36.0-32.0The [facility] Comment on above:Performed By: #### PTHINT #### [facility] [address] [place] [address] Dr. Karen PierceCreatinine [Mass/Vol]1.48 mg/dLCritically high0.70-1.30[facility] CompanyComment on above:Performed By: #### PTHINT #### [facility] [address] [place] [address] Dr. Karen ReyesGFR-AF KMDHPVSD85 mL/min/1.95z6Mdqqejjxog low>=60The [facility] HospitalComment on above:Performed By: #### PTHINT #### [facility] [address] [place] [address] Dr. Karen Bello-NON AF UZKJTHCD58 mL/min/1.61q3Gsslrdagcs low>=60The [facility] HospitalComment on above:Performed By: #### PTHINT #### [facility] [address] [place] [address] Dr. Karen PierceGlobulin (S) [Mass/Vol]3.6 g/dLNormalThe [facility] HospitalComment on above:Performed By: #### PTHINT #### [facility] [address] [place] [address] Dr. Karen PierceGlucose [Mass/Vol]105 mg/bAPyzpyq42-030EwaRegency Hospital Company Comment on above:Performed By: #### PTHINT #### [facility] [address] [place] [address] Dr. Karen PierceProtein [Mass/Vol]7.1 g/dLNormal6.4-8.2[facility] Comment on above:Performed By: #### PTHINT #### [facility] [address] [place] [address] Dr. Karen PierceSodium [Moles/Vol]142 mmol/RHhmzuo798-737JwmRegency Hospital Company Comment on above:Performed By: #### PTHINT #### [facility] [address] [place] [address] Dr. Karen PierceUrea nitrogen/Creatinine [Mass ratio]16.2 mg/mgNormalThe [facility] HospitalComment on above:Performed By: #### PTHINT #### [facility] [address] [place] [address] Dr. Karen Leos CHEM 8 (BAS METB)on 03-85-9508Jsbuu gap [Moles/Vol]11.1 mmol/LNormalRegency Hospital CompanyComment on above:Performed By: #### UA #### [facility] [address] [place] [address] Dr. Karen PierceCalcium [Mass/Vol]8.7 mg/dLNormal8.5-10.1[facility] Comment on above:Performed By: #### UA #### [facility] [address] [place] [address] Dr. Karen PiercePerformed By: #### PTHINT #### [facility] [address] [place] [address] Dr. Karen PierceChloride [Moles/Vol]106 mmol/MUiwxog13-298RbwRegency Hospital Company Comment on above:Performed By: #### UA #### [facility] [address] [place] [address] Dr. Karen PiercePerformed By: #### PTHINT #### [facility] [address] [place] [address] Dr. Karen PierceCO2 [Moles/Vol]28.5 mmol/CQylhvx92.0-32.0[facility] Comment on above:Performed By: #### UA #### [facility] [address] [place] [address] Dr. Yilan ChangCreatinine [Mass/Vol]1.44 mg/dLCritically high0.70-1.30The [facility] HospitalComment on above:Performed By: #### UA #### [facility] [address] [address] [address] Karen ReyesGFR-AF OYXLDEFQ60 mL/min/1.00y4Vrufwvblso low>=60The [facility] HospitalComment on above:Performed By: #### UA #### [facility] [address] [address] [address] Karen ReyesGFR-NON AF VGBMPDKW99 mL/min/1.92n6Hscgwhdugm low>=60The [facility] HospitalComment on above:Performed By: #### UA #### [facility] [address] [place] [address] Dr. Karen PierceGlucose [Mass/Vol]104 mg/xMUhyseq46-471Jry [facility] Comment on above:Performed By: #### UA #### [facility] [address] [address] [address] Karen PiercePotassium [Moles/Vol]4.6 mmol/LNormal3.5-5.1The [facility] Comment on above:Performed By: #### UA #### [facility] [address] [place] [address] Dr. Karen PiercePerformed By: #### PTHINT #### [facility] [address] [address] [address] Karen PierceSodium [Moles/Vol]141 mmol/NEnfdhx186-617Dma [facility] Comment on above:Performed By: #### UA #### [facility] [address] [address] [address] Karen PierceUrea nitrogen [Mass/Vol]24.0 mg/dLCritically high7.0-18.0The [facility] HospitalComment on above:Performed By: #### UA #### [facility] [address] [place] [address] Dr. Karen PiercePerformed By: #### PTHINT #### [facility] [address] [place] [address] Dr. Karen PierceUrea nitrogen/Creatinine [Mass ratio]16.7 mg/mgNoWayne HospitalComment on above:Performed By: #### UA #### [facility] [address] [place] [address] Dr. Karen PiercePROTIMEon 38-88-2364QGH Coag (PPP) [Relative time]1.01 {INR} NormalThe [facility] HospitalComment on above:Performed By: #### PTT, PT #### [facility] [address] [place] [address] Dr. Karen PierceINIsabel GUIDELINESSEE BELOWSelect Medical Specialty Hospital - TrumbullComment on above:Result Comment: DESIRED INR: 2.0 - 3.0 CONDITIONS NOT LISTED BELOW 2.5 - 3.5 FOR PROSTHETIC HEART VALVE REPLACEMENT 2.5 - 3.5 RECURRENT THROMBOSIS Performed By: #### PTT, PT #### [facility] [address] [place] [address] Dr. Karen PiercePT Coag (PPP) [Time]10.7 sNormal9.0-11.6The [facility] Comment on above:Performed By: #### PTT, PT #### [facility] [address] [place] [address] Dr. Karen PiercePTTon 59-87-4666rYFP Coag (Bld) [Time]28.2 eNzoskm43.3-36.2[facility] CompanyComment on above:Performed By: #### PTT, PT #### [facility] [address] [place] [address] Dr. Karen PierceURIC ACID SERUMon 07-54-3021Ixsae [Mass/Vol]4.8 mg/dLNormal 3.5-7.2The [facility] HospitalComharper university hospital on above:Performed By: #### PTHINT #### [facility] [address] [place] [address] Dr. Karen PierceCreatinine (Bld) [Mass/Vol]Ordered By: Margarito Valentine on 59-00-4603Mchhomexpm [Mass/Vol]1.5 mg/dL0.6-1.3FBerger Hospital Comment on above:ER/ESD physician is notified/shown all ISTAT results.Critical values may be confirmed by laboratorytesting ifdeemed necessary by ER attending doctor.Creatinine (Bld) [Mass/Vol]Ordered By: Heather Omalley on 07-24-2022 Creatinine [Mass/Vol]1.6 mg/dL0.6-1.3FBerger HospitalComment on above:ER/ESD physician is notified/shown all ISTAT results.Critical values may be confirmed by laboratorytesting ifdeemed necessary by ER attending doctor.No Panel InformationOrdered By: Heather Omalley on 98-87-2758KUX Estimated GFR Asctxhbi49CweyprluaKeenan Private HospitalComment on above:GFR estimated reference range: According to KDOQI guidelines, <60 ml/min/1.73m2 is sufficient todiagnose a patient with chronic kidney disease.POC Estimated GFR Non- Khcr77MnhwlimpcKeenan Private HospitalBlood activated clotting time by coagulation assayOrdered By: Margarito Valentine on 55-89-5720VDX Coag (Bld) 215 s70-160YhzmjejwjKeenan Private HospitalComment on above:Reference Range: 90-139 (Non-heparinized)Basophils Auto (Bld) [#/Vol]Ordered By: Margarito Valentine on 51-03-3152Bwyjhbqsl (Bld) [#/Vol]0.1 10*3/uL0.0-0.2FBerger HospitalBasophils/100 WBC Auto (Bld)Ordered By: Margarito Valentine on 75-36-4861Diirbxqtd/100 WBC (Bld)0.9 %.[facility] HospitalCreatinine and Glomerular filtration rate.predicted panel (S/P/Bld)Ordered By: Margarito Valentine on 47-80-7574Fcyrkylpnn [Mass/Vol]1.24 mg/dL0.64-1.27 [facility] HospitalEosinophils Auto (Bld) [#/Vol]Ordered By: Margarito Valentine on 03-27-9312Ywofzxulpml (Bld) [#/Vol]0.2 10*3/uL0.0-0.45 [facility] CenterEosinophils/100 WBC Auto (Bld)Ordered By: Margarito Valentine on 79-11-3885Ztudsmqoiat/100 WBC (Bld)2.5 %.[facility] HospitalErythrocyte distribution width Auto (RBC) [Ratio]Ordered By: Margarito Valentine on 27-41-1258Fjecdljtddl distribution width (RBC) [Ratio] 18.0 %12.0-14.8[facility] HospitalEstimated glomerular filtration rate (GFR) non- AmericanOrdered By: Margarito Valentine on 06-21-2022 GFR/1.73 sq M.predicted among non-blacks MDRD (S/P/Bld) [Vol rate/Area]56 mL/Min [facility] HospitalHematocrit Auto (Bld) [Volume fraction]Ordered By: Margarito Valentine on 97-85-5564Vdcjqxmqdt (Bld) [Volume fraction]37.7 % 38.8-50.0[facility] HospitalHemoglobin [Mass/volume] in Blood Ordered By: Margarito Valentine on 22-89-3039Hklnuifljq (Bld) [Mass/Vol]12.3 g/dL 13.0-17.0[facility] HospitalLeukocytes [#/volume] corrected for nucleated erythrocytes in Blood by Automated counOrdered By: Margarito Valentine on 33-90-0676ONR corrected for nucl RBC Auto (Bld) [#/Vol]7.1 10*3/uL4.1-10.5 [facility] HospitalLymphocytes Auto (Bld) [#/Vol]Ordered By: Margarito Valentine on 80-28-2151Vxqlwqeproh (Bld) [#/Vol]1.3 10*3/uL1.00-4.8 [facility] HospitalLymphocytes/100 WBC Auto (Bld)Ordered By: Margarito Valentine on 06-90-3950Gneqcmbysho/100 WBC (Bld)18.7 %.[facility] Auto (RBC) [Entitic mass]Ordered By: Margarito Valentine on 09-04-8243PQF (RBC) [Entitic mass]28.2 pg27.5-35.2[facility] Medical CenterMCHC Auto (RBC) [Mass/Vol]Ordered By: Margarito Valentine on 06-60-7210EMCR (RBC) [Mass/Vol]32.6 g/dL32.5-35.6FBerger HospitalMCV Auto (RBC) [Entitic vol]Ordered By: Margarito Valentine on 06-21-2022 MCV (RBC) [Entitic vol]86.5 fL83.5-101[facility] HospitalMonocytes Auto (Bld) [#/Vol]Ordered By: Margarito Valentine on 01-56-3537Mqqhfjylm (Bld) [#/Vol]0.7 10*3/uL0.0-0.8[facility] HospitalMonocytes/100 WBC Auto (Bld)Ordered By: Margarito Valentine on 44-96-7260Lxzsmtxvf/100 WBC (Bld)10.3 %. [facility] HospitalNeutrophils Auto (Bld) [#/Vol]Ordered By: Margarito Valentine on 31-44-3935Tluwfpinhoy (Bld) [#/Vol]4.8 10*3/uL1.8-7.7 [facility] HospitalNeutrophils/100 WBC Auto (Bld)Ordered By: Margarito Valentine on 00-92-9853Kzfncbagdaw/100 WBC (Bld)67.6 %.[facility] HospitalNo Panel InformationOrdered By: Margarito Valentine on 78-39-6332Xymwohgvv GFR ()> 60 mL/MinKeenan Private HospitalComment on above:GFR estimated reference range: According to KDOQI guidelines, <60 ml/min/1.73m2 is sufficient todiagnose a patient with chronic kidney disease.Pharmacy Creatinine Clearance (ChemN/AFBerger HospitalNucleated erythrocytes [Presence] in Blood by Automated countOrdered By: Margarito Valentine on 99-13-3919Icybkykyc RBC Auto Ql (Bld)0.1 /100{WBC}0-0.5 [facility] HospitalPlatelet mean volume Auto (Bld) [Entitic vol] Ordered By: Margarito Valentine on 81-23-3711Mvctxnko mean volume (Bld) [Entitic vol]8.2 fL6.6-10.1FBerger HospitalPlatelets Auto (Bld) [#/Vol] Ordered By: Margarito Valentine on 58-55-7717Gzqjyhazi (Bld) [#/Vol]149 10*3/uL 150-450Ke[facility] Private HospitalRBC Auto (Bld) [#/Vol]Ordered By: Margarito Valentine on 66-41-0826NKS (Bld) [#/Vol]4.36 10*6/uL3.90-5.60[facility] Springfielderum or plasma anion gap determinationOrdered By: Margarito Valentine on 38-44-7685Nbtkj gap [Moles/Vol]10.8 mmol/L6.0-15.0 [facility] Springfielderum or plasma calcium measurement (mass/volume)Ordered By: Margarito Valentine on 90-89-4644Ucwswmk [Mass/Vol]8.8 mg/dL8.2-10.2FMemorial Health System Marietta Memorial Hospitalerum or plasma chloride measurement (moles/volume)Ordered By: Margarito Valentine on 27-43-5294Seafljnn [Moles/Vol]107 mmol/R13-494JzdlfqzcpKettering Health Springfielderum or plasma glucose measurement (mass/volume)Ordered By: Margarito Valentine on 06-21-2022 Glucose [Mass/Vol]103 mg/dC77-356MznkgssemKeenan Private HospitalComment on above:ADA recommended reference rangeRandom Glucose Reference Range is dependent on time and content of last meal. Glucose of more than 200 mg/dL in a nonstressed, ambulatory subject supports the diagnosisof Diabetes Mellitus.Serum or plasma potassium measurement (moles/volume)Ordered By: Margarito Valentine on 67-01-8515Jnetpanmp [Moles/Vol]4.2 mmol/L3.5-5.1FMemorial Health System Marietta Memorial Hospitalerum or plasma sodium measurement (moles/volume)Ordered By: Margarito Valentine on 99-05-6011Twwhfn [Moles/Vol]138 mmol/A979-087AcjqefyisKettering Health Springfielderum or plasma total carbon dioxide measurement (moles/volume) Ordered By: Margarito Valentine on 62-82-7717VW5 [Moles/Vol]24.4 mmol/L22.0-30.0 [facility] Health Springfielderum or plasma urea nitrogen measurement (mass/volume)Ordered By: Margarito Valentine on 24-79-3524Nvbk nitrogen [Mass/Vol]18 mg/dL9-[facility] HospitalWBC Auto (Bld) [#/Vol] Ordered By: Margarito Valentine on 43-29-2866ZLH (Bld) [#/Vol]7.1 10*3/uL4.1-10.5 [facility] HospitalOffice Visit (Cardiology)on 34-05-1303Krdebk-up visitDiagnoses/Problems Assessed Dyslipidemia (272.4) (E78.5) Hypertension (401.9) [...] Signs Recorded: 03Jun2022 03:38PM Heart Rate71, Apical Tkpznway074, LUE, Sitting Twqetvqod40, LUE, Sitting Height6 ft 2 in Tbggxs447 lb BMI Waiiiptcso19.45 kg/m2 BSA Calculated2.2 Tobacco Useb) No PHQ-2 [...] regular (more content not included)...NormalUH TouchworksTobacco Screening.on 77-64-2877Evcpg depression screening assessmentOsteopathic Hospital of [facility] [employer] 250 DO Work Phone: Fall risk assessmenta) No falls within the last year [facility] [employer] 250 DO Work Phone: Tobacco use status CPHSb) [facility] [employer] 250 DO Work Phone: Basophils Auto (Bld) [#/Vol]Ordered By: Bernabe Cr on 08-02-9316Gqcoolmyl (Bld) [#/Vol]0.1 10*3/uL0.0-0.2FBerger HospitalBasophils/100 WBC Auto (Bld)Ordered By: Bernabe Cr on 47-81-5631Zxgmisjnc/100 WBC (Bld)1.2 %.[facility] HospitalCreatinine and Glomerular filtration rate.predicted panel (S/P/Bld)Ordered By: eBrnabe Cr on 01-71-0490Gwsrjegdwp [Mass/Vol]1.78 mg/dL0.64-1.27 [facility] HospitalEosinophils Auto (Bld) [#/Vol]Ordered By: Bernabe Cr on 15-86-3268Icjgmbeuyhu (Bld) [#/Vol]0.3 10*3/uL0.0-0.45 [facility] HospitalEosinophils/100 WBC Auto (Bld)Ordered By: Bernabe Cr on 90-17-8811Xxydmgtymzk/100 WBC (Bld)3.6 %.[facility] HospitalErythrocyte distribution width Auto (RBC) [Ratio]Ordered By: Bernabe Cr on 74-28-4949Glzobkhnrlh distribution width (RBC) [Ratio]15.3 %12.0-14.8[facility] HospitalEstimated glomerular filtration rate (GFR) non- AmericanOrdered By: Bernabe Cr on 24-91-3462RKO/1.73 sq M.predicted among non-blacks MDRD (S/P/Bld) [Vol rate/Area]37 mL/MinKeenan Private HospitalHematocrit Auto (Bld) [Volume fraction]Ordered By: Bernabe Cr on 14-68-2555Ihvaoustal (Bld) [Volume fraction]36.2 %38.8-50.0[facility] HospitalHemoglobin [Mass/volume] in BloodOrdered By: Bernabe Cr on 56-53-2259Zoqaquimnf (Bld) [Mass/Vol]11.7 g/dL13.0-17.0[facility] HospitalLeukocytes [#/volume] corrected for nucleated erythrocytes in Blood by Automated coun Ordered By: Bernabe Cr on 95-79-8562WXB corrected for nucl RBC Auto (Bld) [#/Vol]8.1 10*3/uL4.1-10.5FBerger HospitalLymphocytes Auto (Bld) [#/Vol]Ordered By: Bernabe Cr on 38-04-3973Vpwwegrksti (Bld) [#/Vol]1.4 10*3/uL1.00-4.8[facility] HospitalLymphocytes/100 WBC Auto (Bld)Ordered By: Bernabe Cr on 93-31-0725Cobxjvvgmbs/100 WBC (Bld)16.9 %.[facility] SystemH Auto (RBC) [Entitic mass] Ordered By: Bernabe Cr on 14-41-4412SND (RBC) [Entitic mass]27.4 pg 27.5-35.2FBerger HospitalMCHC Auto (RBC) [Mass/Vol]Ordered By: Bernabe Cr on 34-19-2335INFG (RBC) [Mass/Vol]32.5 g/dL32.5-35.6 [facility] HospitalMCV Auto (RBC) [Entitic vol]Ordered By: Bernabe Cr on 13-83-7902RIG (RBC) [Entitic vol]84.3 fL83.5-101 [facility] HospitalMonocytes Auto (Bld) [#/Vol]Ordered By: Bernabe Cr on 15-98-7436Cyehzjboe (Bld) [#/Vol]0.8 10*3/uL0.0-0.8 [facility] HospitalMonocytes/100 WBC Auto (Bld)Ordered By: Bernabe Cr on 76-14-5234Euxisulad/100 WBC (Bld)10.1 %.[facility] HospitalNeutrophils Auto (Bld) [#/Vol]Ordered By: Bernabe Cr on 45-25-5676Mezybuuzhme (Bld) [#/Vol]5.6 10*3/uL1.8-7.7FBerger HospitalNeutrophils/100 WBC Auto (Bld)Ordered By: Bernabe Cr on 69-21-2419Csbgkoahaaq/100 WBC (Bld)68.2 %.[facility] HospitalNo Panel InformationOrdered By: Bernabe Cr on 05-22-2022 Estimated GFR ()45 mL/MinKeenan Private Hospital Comment on above:GFR estimated reference range: According to KDOQI guidelines, <60 ml/min/1.73m2 is sufficient todiagnose a patient with chronic kidney disease.Pharmacy Creatinine Clearance (Chem39.77[facility] HospitalNucleated erythrocytes [Presence] in Blood by Automated countOrdered By: Bernabe Cr on 69-77-0992Gidmjpobe RBC Auto Ql (Bld)0.1 /100{WBC}0-0.5 [facility] HospitalPlatelet mean volume Auto (Bld) [Entitic vol] Ordered By: Bernabe Cr on 80-80-9070Mrxbcvae mean volume (Bld) [Entitic vol]8.7 fL6.6-10.1FBerger HospitalPlatelets Auto (Bld) [#/Vol]Ordered By: Bernabe Cr on 83-93-9793Zftmbhoax (Bld) [#/Vol]198 10*3/gO144-430QnjchsejhKeenan Private HospitalRBC Auto (Bld) [#/Vol]Ordered By: Bernabe Cr on 73-26-2048BEG (Bld) [#/Vol]4.29 10*6/uL3.90-5.60 [facility] Springfielderum or plasma anion gap determinationOrdered By: Bernabe Cr on 48-25-1332Rhvuz gap [Moles/Vol]13.3 mmol/L6.0-15.0 [facility] Springfielderum or plasma calcium measurement (mass/volume)Ordered By: Bernabe Cr on 84-10-3319Fzodxxz [Mass/Vol]8.3 mg/dL8.2-10.2FMemorial Health System Marietta Memorial Hospitalerum or plasma chloride measurement (moles/volume)Ordered By: Bernabe Cr on 54-71-9766Yxlyzbti [Moles/Vol]104 mmol/J58-400ZsmefdlzsKettering Health Springfielderum or plasma glucose measurement (mass/volume)Ordered By: Bernabe Cr on 05-22-2022 Glucose [Mass/Vol]180 mg/zN89-230UpjmtuhnyKeenan Private HospitalComment on above:ADA recommended reference rangeRandom Glucose Reference Range is dependent on time and content of last meal. Glucose of more than 200 mg/dL in a nonstressed, ambulatory subject supports the diagnosisof Diabetes Mellitus.Serum or plasma potassium measurement (moles/volume)Ordered By: Bernabe Cr on 50-48-2766Pgsghfaoz [Moles/Vol]3.3 mmol/L3.5-5.1FMemorial Health System Marietta Memorial Hospitalerum or plasma sodium measurement (moles/volume)Ordered By: Bernabe Cr on 33-58-9413Tfltrt [Moles/Vol]137 mmol/M590-695CmcawnshjKettering Health Springfielderum or plasma total carbon dioxide measurement (moles/volume) Ordered By: Bernabe Cr on 72-27-6492VO5 [Moles/Vol]23.0 mmol/L 22.0-30.0[facility] Springfielderum or plasma urea nitrogen measurement (mass/volume)Ordered By: Bernabe Cr on 70-37-4984Ijfr nitrogen [Mass/Vol]21 mg/dL9-23[facility] HospitalWBC Auto (Bld) [#/Vol]Ordered By: Bernabe Cr on 21-59-7977ZFV (Bld) [#/Vol]8.1 10*3/uL4.1-10.5FBerger HospitalNo Panel InformationOrdered By: Bernabe Cr on 30-64-744227161530-Syfpmph Vitamin D Total15.9 ng/dA88-412 [facility] HospitalComment on above:VITAMIN D STATUS 25(OH)VITAMIN D RANGE (ng/mL) Deficient <20 Insufficient 20 to <49Wbtusllonl61 to 100Reference: Sixto MF,Federico NC, Palomo LESLIE, et al. Evaluation,treatment, and prevention of vitamin D deficiency; an Endocrine Society clinical practice guideline. JCEM. 2010; 96(7):1911-30.Vitamin C level0.2 mg/dL0.4-2.0[facility] HospitalComment on above:This test was developed and its performance characteristicsdetermined by [employer]. It has not been cleared orapproved by the Food and Drug Administration.Vitamin C deficiency is generally defined as plasma orserum concentrations less than 0.2 mg/dL and levels between0.2 and 0.4 mg/dL are considered low.Performed at: [address] [id number] Director: Mamadou Rodriguez MD, Phone: [phone] [Mass/volume] in Serum or PlasmaOrdered By: Taz Barnes on 38-07-4389Ncqmpo [Mass/Vol]5.5 ng/mL>5.9[facility] HospitalComment on above:Folate reference range: >5.9 ng/mlThe WHO technical consultation on folate and vitamin t75iqixudhkwonm has determined that folate concentrations lessthan 4 ng/ml are considered deficient.Laboratory - Chemistry and Chemistry - challengeOrdered By: Taz Barnes on 05-20-2022 Cobalamin (Vitamin B12) [Mass/Vol]169 pg/xE611-546KddhkdogpKeenan Private HospitalNo Panel InformationOrdered By: Taz Barnes on 60-65-0260Qez and Parasite Result 1FBerger HospitalOva and Parasite Result 1 [facility] HospitalOva or parasites identificationOrdered By: Taz Barnes on 28-26-0576Coh and parasites identified LM Nom (Unsp spec) [facility] and parasites identified LM Nom (Unsp spec) [facility] HospitalLaboratory - Chemistry and Chemistry - challengeOrdered By: Janice Gonzalez on 74-88-6332Ajljcmpmc [Mass/Vol]1.7 mg/dL 1.6-2.6FBerger HospitalAutomated erythrocytes count in urine sediment (number/area)Ordered By: Taz Barnes on 00-58-6143XTJ Auto (Urine sed) [#/Area]50-100 [HPF]0-4FBerger HospitalAutomated leukocytes count in urine sediment (number/area)Ordered By: Taz Barnes on 93-95-5574ZVL Auto (Urine sed) [#/Area]Innumerable [HPF]0-4FBerger HospitalAutomated urine hyaline casts count (number/volume)Ordered By: Taz Barnes on 59-13-7529Ecdfkzq casts Auto (U) [#/Vol]None seen [LPF]0-1 [facility] HospitalBilirubin Test strip Ql (U)Ordered By: Taz Barnes on 71-93-7287Dwlolibip Ql (U)NegativeNegHolzer Medical Center – JacksonCasts typing in urine sediment by light microscopyOrdered By: Taz Barnes on 28-98-5351Yeiba LM Nom (Urine sed)None seen [LPF]None [facility] HospitalColor Auto (U)Ordered By: Taz Barnes on 05-18-2022 Color (U)YellowYellowKeenan Private HospitalKetones Auto test strip (U) [Mass/Vol]Ordered By: Taz Barnes on 09-09-6159Wabftno (U) [Mass/Vol] NegativeNegativeKeenan Private HospitalNitrite Test strip Ql (U) Ordered By: Taz Barnes on 08-25-5588Hvoamvh Ql (U)NegativeNegHolzer Medical Center – JacksonProtein Auto test strip (U) [Mass/Vol]Ordered By: Taz Barnes on 48-67-7937Lwzyidz (U) [Mass/Vol]100 mg/dLNegSelect Medical Specialty Hospital - Youngstownpecific gravity Auto test strip (U) [Rel density]Ordered By: Taz Barnes on 17-40-2519Mavlivhy gravity (U) [Rel density]1.0101.001-1.030 [facility] Springfieldquamous epithelial cells detection in urine sediment by light microscopyOrdered By: Taz Barnes on 12-72-0582Ilyblsonxy cells.squamous LM Ql (Urine sed)1-2 [HPF]0-2FBerger Hospital Urine bacteria detection by automated methodOrdered By: Taz Barnes on 78-89-8937Xlzjeuiz Auto Ql (U)None seenNone [facility] HospitalUrine clarity by refractometry automatedOrdered By: Taz Barnes on 87-27-0041Ghcrsic Refractometry automated (U)TurbidCleLouis Stokes Cleveland VA Medical CenterUrine culture routineOrdered By: Taz Barnes on 05-18-2022 Bacteria identified Cx Nom (U)No Growth 2 DaysKeenan Private Hospital Bacteria identified Cx Nom (U)No Growth 2 DaysKeenan Private Hospital Urine glucose measurement by automated test strip (mass/volume)Ordered By: Taz Barnes on 11-00-2649Wvpxavt Auto test strip (U) [Mass/Vol]Normal mg/dL NormalKeenan Private HospitalUrine hemoglobin detection by automated test stripOrdered By: Taz Barnes on 82-78-3734Cyislzdxqo Auto test strip Ql (U)2+NegativeKeenan Private HospitalUrine leukocyte esterase detection by automated test stripOrdered By: Taz Barnes on 23-59-9460Sbobmgfit esterase Auto test strip Ql (U)4+NegativeKeenan Private Hospital Urobilinogen Auto test strip (U) [Mass/Vol]Ordered By: Taz Branes on 50-23-0945Ieiexyqoexny (U) [Mass/Vol]Normal mg/dLNormalKeenan Private HospitalYeast detection in urine sediment by light microscopyOrdered By: Taz Barnes on 97-50-5589Tzbwv LM Ql (Urine sed)None seen [HPF]None Seen [facility] HospitalpH Auto test strip (U)Ordered By: Taz Barnes on 97-19-8303vW (U)7.5 [pH]5.0-9.0[facility] HospitalActivated partial thromboplastin time (aPTT) in platelet poor plasma by coagulation a Ordered By: Taz Barnes on 00-20-4282yPBH Coag (PPP) [Time]29.5 s25.1-36.5 [facility] HospitalBody fluid albumin measurement (mass/volume) Ordered By: Taz Barnes on 52-39-9568Biiotyg (Body fld) [Mass/Vol]2.9 g/dL 3.2-5.5FBerger HospitalCBC AUTO DIFFon 34-20-3216FQKC #0.0 103/ulNormal0.0-0.1The [facility] HospitalComment on above:Performed By: #### CBC #### [facility] [address] [address] [address] Karen PierceBasophils/100 WBC (Bld)0.3 %Normal0.2-2.0The [facility] Comment on above:Performed By: #### CBC #### [facility] [address] [place] [address] Dr. Karen Valente #0.1 103/ulNormal0.0-0.7The [facility] HospitalComment on above: Performed By: #### CBC #### [facility] [address] [place] [address] Dr. Karen Reyesosinophils/100 WBC (Bld)0.7 %Critically low0.9-7.0The [facility] HospitalComment on above:Performed By: #### CBC #### [facility] [address] [place] [address] Dr. Karen Reyesrythrocyte distribution width (RBC) [Ratio]14.8 %Yvxmxq72.0-15.0 [facility] Centerment on above:Performed By: #### CBC #### [facility] [address] [place] [address] Dr. Karen PierceHematocrit (Bld) [Volume fraction]39.4 %Critically low42.0-54.0 [facility] Centerment on above:Performed By: #### CBC #### [facility] [address] [place] [address] Dr. Karen PierceHemoglobin (Bld) [Mass/Vol]12.6 g/dLCritically low14.0-18.0The [facility] Hospitalment on above:Performed By: #### CBC #### [facility] [address] [place] [address] Dr. Karen Ayala #0.04 10e3/ulCritically high0.00-0.03The [facility] Comment on above:Performed By: #### CBC #### [facility] [address] [place] [address] Dr. Karen Ayala %0.4 %Normal0.0-0.5The [facility] Hospitalment on above: Performed By: #### CBC #### [facility] [address] [place] [address] Dr. Karen Brandt #1.2 103/ulNormal1.2-3.8The [facility] HospitalComment on above:Performed By: #### CBC #### [facility] [address] [address] [address] Karen Kimmphocytes/100 WBC (Bld)11.8 %Critically low20.5-60.0The [facility] HospitalComment on above:Performed By: #### CBC #### [facility] [address] [place] [address] Dr. Karen Figueroa DIFF REQNONormalThe [facility] [place] HospitalComment on above: Performed By: #### CBC #### [facility] [address] [place] [address] Dr. Karen Michael (RBC) [Entitic mass]27.5 ltKhgjij75.9-34.0The [facility] HospitalComment on above:Performed By: #### CBC #### [facility] [address] [place] [address] Dr. Karen Michael (RBC) [Mass/Vol]32.0 g/mWSfdbjs56.9-35.2The [facility] HospitalComment on above:Performed By: #### CBC #### [facility] [address] [place] [address] Dr. Karen Schuster (RBC) [Entitic vol]86.0 rQAnsyys13.0-94.0The [facility] HospitalComment on above:Performed By: #### CBC #### [facility] [address] [place] [address] Dr. Karen Monteiro #1.4 103/ulCritically high0.3-0.8The [facility] Comment on above:Performed By: #### CBC #### [facility] [address] [place] [address] Dr. Karen Elizabethocytes/100 WBC (Bld)13.8 %Critically high1.7-12.0The [facility] HospitalComment on above:Performed By: #### CBC #### [facility] [address] [place] [address] Dr. Karen Cronin #7.6 103/ulCritically high1.4-6.5The [facility] Comment on above:Performed By: #### CBC #### [facility] [address] [place] [address] Dr. Karen Bakerutrophils/100 WBC (Bld)73.0 %Obftzv55.0-75.0The [facility] HospitalComment on above:Performed By: #### CBC #### [facility] [address] [place] [address] Dr. Karen PiercePlatelet mean volume (Bld) [Entitic vol]10.6 fLNormal9.5-13.5The [facility] [place] HospitalComment on above:Performed By: #### CBC #### [facility] [address] [place] [address] Dr. Karen PiercePLT193 103/iiRhsoqz554-690Dvq [facility] HospitalComment on above: Performed By: #### CBC #### [facility] [address] [place] [address] Dr. Karen PierceRBC4.58 106/ulCritically low4.70-6.10The [facility] HospitalComment on above:Performed By: #### CBC #### [facility] [address] [place] [address] Dr. Karen PierceWBC10.4 103/ulNormal4.0-11.0The [facility] HospitalComment on above:Performed By: #### CBC #### [facility] [address] [place] [address] Dr. Karen PierceCT ABD/PELVIS WO CONon 78-02-1246LU ABD/PELVIS WO CONEXAMINATION: CT ABD/PELVIS WO CON [...] Electronically authenticated by: LORENZO SCHERER Date: 2022-05-16 09:21NoWayne HospitalCULTURE URINEon 20-28-6153FQFFWER URINECulture Observations: MODERATE GROWTH OF MIXED SKIN JAS. NO POTENTIAL PATHOGENS SEEN.NormalThe [facility] HospitalComment on above:Performed By: #### URTPCR #### [facility] [address] [place] [address] Dr. Karen Parksvid-19 PCR ([facility])on 82-91-7205FCNL-CoV-2 (COVID-19) RNA KARI+probe Ql (Unsp spec)Not detectedNormalNOT DETECTEDRegency Hospital Company Comment on above:Result Comment: When diagnostic testing [...] for this test is supported by the [employer] of Health and Human Service's declaration that [...] longer be used).Performed By: #### UA #### [facility] [address] [place] [address] Dr. Karen PierceCreatinine [Mass/volume] in UrineOrdered By: Taz Barnes on 71-06-0655Uemffrlirf (U) [Mass/Vol]68.1 mg/dLKeenan Private Hospital Comment on above:No reference range establishedER URINE PROFILEon 05-16-2022 Bilirubin Ql (U)NegativeNormalNEGATIVERegency Hospital CompanyComment on above: Performed By: #### URTPCR #### [facility] [address] [place] [address] Dr. Karen Yang (U)CLEARNormalCLEARRegency Hospital CompanyComment on above: Performed By: #### URTPCR #### [facility] [address] [place] [address] Dr. Karen Salomon (U)YELLOWNormalYELLOWRegency Hospital CompanyComment on above: Performed By: #### URTPCR #### [facility] [address] [place] [address] Dr. Karen Daigle micrscopic examination will be performed if indicated. NormalRegency Hospital CompanyComment on above:Performed By: #### URTPCR #### [facility] [address] [place] [address] Dr. Karen PierceGlucose Ql (U)NegativeNormalNEGATIVERegency Hospital CompanyComment on above:Performed By: #### URTPCR #### [facility] [address] [place] [address] Dr. Karen PierceHemoglobin Ql (U)MODERATEAbnormalNEGPaulding County Hospital Comment on above:Performed By: #### URTPCR #### [facility] [address] [place] [address] Dr. Karen PierceKetones Ql (U)NegativeNormalNEGATIVERegency Hospital CompanyComment on above:Performed By: #### URTPCR #### [facility] [address] [place] [address] Dr. Karen PierceLEUKOCYTESLARGEAbnormalNEGATIVERegency Hospital CompanyComment on above:Performed By: #### URTPCR #### [facility] [address] [place] [address] Dr. Karen PierceNitrite Ql (U)NegativeNormalNEGATIVERegency Hospital CompanyComment on above:Performed By: #### URTPCR #### [facility] [address] [place] [address] Dr. Karen PiercepH (U)5.5 [pH]Normal5-9Reg[facility] Hospital CompanyComment on above: Performed By: #### URTPCR #### [facility] [address] [place] [address] Dr. Karen PierceSPEC GRAVITY<=1.049Rhjjnljg6.005-<=1.025[facility] Comment on above:Performed By: #### URTPCR #### [facility] [address] [place] [address] Dr. Karen PierceUA PROTEINNegativeNormalNEGATIVE/ TRACEThe [facility] Comment on above:Performed By: #### URTPCR #### [facility] [address] [address] [address] Karen Moulton MICRO INDINDICATEDNormalThe [facility] HospitalComment on above: Performed By: #### URTPCR #### [facility] [address] [address] [address] Karen PierceUrobilinogen Qn (U)0.2 {Tonio'U}/dLNormal0.2 - 1.0The [facility] HospitalComment on above:Performed By: #### URTPCR #### [facility] [address] [place] [address] Dr. Karen PierceGlobulin Calc (S) [Mass/Vol]Ordered By: Taz Barnes on 40-27-3910Ufnqdial (S) [Mass/Vol]3.5 g/dLKeenan Private Hospital Laboratory - CoagulationOrdered By: Taz Barnes on 74-77-4667JW Coag (PPP) [Time]14.2 s9.0-12.9[facility] HospitalPROF 14(COMP METB)on 48-42-1293Eqysptq [Mass/Vol]3.1 g/dLCritically low3.4-5.0The [facility] Comment on above:Performed By: #### URTPCR #### [facility] [address] [place] [address] Dr. Karen PierceAlbumin/Globulin [Mass ratio]0.7 {ratio}NormalThe [facility] HospitalComment on above:Performed By: #### URTPCR #### [facility] [address] [place] [address] Dr. Karen Murillo [Catalytic activity/Vol]96 U/GJiwkpx16-251Dsj [facility] HospitalComment on above:Performed By: #### URTPCR #### [facility] [address] [address] [address] Karen Matthew [Catalytic activity/Vol]46 U/QTsapxk01-58Fns [facility] HospitalComment on above:Performed By: #### URTPCR #### [facility] [address] [address] [address] Karen Sandyon gap [Moles/Vol]19.7 mmol/LNormalThe [facility] Comment on above:Performed By: #### URTPCR #### [facility] [address] [address] [address] Karen PierceAST [Catalytic activity/Vol]21 U/UNqdiir89-78Fah [facility] HospitalComment on above:Performed By: #### URTPCR #### [facility] [address] [address] [address] Karen PierceBilirubin [Mass/Vol]0.3 mg/dLNormal0.2-1.0The [facility] Comment on above:Performed By: #### URTPCR #### [facility] [address] [place] [address] Dr. Karen PierceCalcium [Mass/Vol]8.9 mg/dLNormal8.5-10.1[facility] Comment on above:Performed By: #### URTPCR #### [facility] [address] [address] [address] Karen PierceChloride [Moles/Vol]101 mmol/UKycdck65-203Gwk [facility] Comment on above:Performed By: #### URTPCR #### [facility] [address] [address] [address] Karen PierceCO2 [Moles/Vol]18.3 mmol/LCritically low21.0-32.0The [facility] HospitalComment on above:Performed By: #### URTPCR #### [facility] [address] [address] [address] Karen PierceCreatinine [Mass/Vol]8.99 mg/dLCritically high0.70-1.30The [facility] HospitalComment on above:Performed By: #### URTPCR #### [facility] [address] [address] [address] Jones ChangEGFR-AF AMERICAN7 mL/min/1.99r3Ylaxoshwdt low>=60The [facility] HospitalComment on above:Performed By: #### URTPCR #### [facility] [address] [address] [address] Karen ReyesGFR-NON AF AMERICAN6 mL/min/1.94v7Wwdgrekmvw low>=60The [facility] HospitalComment on above:Performed By: #### URTPCR #### [facility] [address] [place] [address] Dr. Karen PierceGlobulin (S) [Mass/Vol]4.7 g/dLNormalThe [facility] HospitalComment on above:Performed By: #### URTPCR #### [facility] [address] [place] [address] Dr. Karen PierceGlucose [Mass/Vol]110 mg/dLCritically jimb50-959Jsv [facility] HospitalComment on above:Performed By: #### URTPCR #### [facility] [address] [place] [address] Dr. Karen PiercePotassium [Moles/Vol]5.0 mmol/LNormal3.5-5.1The [facility] Comment on above:Performed By: #### URTPCR #### [facility] [address] [place] [address] Dr. Karen PierceProtein [Mass/Vol]7.8 g/dLNormal6.4-8.2The [facility] Comment on above:Performed By: #### URTPCR #### [facility] [address] [place] [address] Dr. Karen PierceSodium [Moles/Vol]134 mmol/LCritically mwq733-529Tsg [facility] HospitalComment on above:Performed By: #### URTPCR #### [facility] [address] [place] [address] Dr. Karen PierceUrea nitrogen [Mass/Vol]129.0 mg/dLCritically high7.0-18.0The [facility] HospitalComment on above:Performed By: #### URTPCR #### [facility] [address] [place] [address] Dr. Yilan ChangUrea nitrogen/Creatinine [Mass ratio]14.3 mg/mgSelect Medical Specialty Hospital - TrumbullComment on above:Performed By: #### URTPCR #### [facility] [address] [place], [place] [address] Dr. Karen PiercePlatelet poor plasma international normalized ratio (INR) by coagulation assay (relatOrdered By: Taz Barnes on 42-45-5019KPQ Coag (PPP) [Relative time]1.3 {INR}[facility] HospitalComment on above:INR Therapeutic Range A) Pre- [...] Serum or PlasmaOrdered By: Taz Barnes on 77-23-9489Yiebpuf [Mass/Vol]6.4 g/dL6.1-7.9[facility] Springfielderum or plasma alanine aminotransferase measurement without P-5'-P (enzymatic activiOrdered By: Taz Barnes on 93-86-1738UPZ No additional P-5'-P [Catalytic activity/Vol]38 U/S35-56ZyecodwykKettering Health Springfielderum or plasma albumin/globulin mass ratioOrdered By: Taz Barnes on 20-83-6895Pxaherf/Globulin [Mass ratio]0.8 {ratio}[facility] Springfielderum or plasma alkaline phosphatase measurement (enzymatic activity/volume)Ordered By: Taz Barnes on 05-16-2022 ALP [Catalytic activity/Vol]78 U/V71-86DnotcosjuKettering Health Springfielderum or plasma aspartate aminotransferase measurement (enzymatic activity/volume)Ordered By: Taz Barnes on 57-29-9709IUJ [Catalytic activity/Vol]19 U/I01-19PadncbsoiKettering Health Springfielderum or plasma total bilirubin measurement (mass/volume) Ordered By: Taz Barnes on 58-32-5800Fhcvhprqk [Mass/Vol]0.4 mg/dL0.3-1.2 [facility] HospitalURINE MICROSCOPIC ONLYon 49-58-0756AFHNWFUP SMALLAbnormalNONE SEENRegency Hospital CompanyComment on above:Performed By: #### URTPCR #### [facility] [address] [place] [address] Dr. Karen Hunt identified Cx Nom (U)INDICATEDSelect Medical Specialty Hospital - TrumbullComment on above:Performed By: #### URTPCR #### [facility] [address] [address] [address] Karen Patterson SEENNormalNONE SEENRegency Hospital CompanyComharper university hospital on above:Performed By: #### URTPCR #### [facility] [address] [place] [address] Dr. Karen Yusufystals LM Nom (Urine sed)NONE SEENNormalNONE SEENRegency Hospital CompanyComharper university hospital on above:Performed By: #### URTPCR #### [facility] [address] [place] [address] Dr. Jones ChangEpithelial cells LM Ql (Urine sed)NONE SEENNormalNONE SEEN /RARE [facility] CompanyComharper university hospital on above:Performed By: #### URTPCR #### [facility] [address] [place] [address] Dr. Karen GuerraUSYOLANDA SEENNormalNONE SEENRegency Hospital CompanyComharper university hospital on above:Performed By: #### URTPCR #### [facility] [address] [place] [address] Dr. Karen SanchezCabqzNUN84-45Vdqwgfxj4-9Tdz [facility] on above: Performed By: #### URTPCR #### [facility] [address] [address] [address] Karen Shaw (U) [#/Vol]/uLAbnormalNONE [facility]ENC[facility] on above:Performed By: #### URTPCR #### [facility] [address] [place] [address] Dr. Karen Vázquez sodium measurement (moles/volume)Ordered By: Taz Barnes on 20-74-5626Umitls (U) [Moles/Vol]42.0 mmol/LFBerger Hospital Comment on above:No reference range establishedXR ABD FLAT_UPon [id number] ABD FLAT_UPEXAMINATION: XR ABD FLAT_UP HISTORY: Fatigue [...] authenticated by: LORENZO SCHERER Date: 2022-05-16 09:25No[facility] AUTO DIFFon [id number] #0.0 103/ulNormal0.0-0.1The [facility] HospitalComment on above:Performed By: #### UA #### [facility] [address] [address] [address] Karen Murphysophils/100 WBC (Bld)0.3 %Normal0.2-2.0[facility] Comment on above:Performed By: #### UA #### [facility] [address] [address] [address] Karen Valente #0.1 103/ulNormal0.0-0.7The [facility] HospitalComment on above: Performed By: #### UA #### [facility] [address] [address] [address] Karen Reyesosinophils/100 WBC (Bld)0.7 %Critically low0.9-7.0The [facility] HospitalComment on above:Performed By: #### UA #### [facility] [address] [address] [address] Karen Reyesrythrocyte distribution width (RBC) [Ratio]14.9 %Vmeacu06.0-15.0 The [facility] HospitalComment on above:Performed By: #### UA #### [facility] [address] [place] [address] Dr. Karen PierceHematocrit (Bld) [Volume fraction]39.8 %Critically low42.0-54.0 The [facility] HospitalComment on above:Performed By: #### UA #### [facility] [address] [place] [address] Dr. Karen PierceHemoglobin (Bld) [Mass/Vol]12.7 g/dLCritically low14.0-18.0The [facility] HospitalComment on above:Performed By: #### UA #### [facility] [address] [place] [address] Dr. Karen Ayala #0.06 10e3/ulCritically high0.00-0.03The [facility] Comment on above:Performed By: #### UA #### [facility] [address] [place] [address] Dr. Karen Ayala %0.5 %Normal0.0-0.5The [facility] HospitalComment on above: Performed By: #### UA #### [facility] [address] [place] [address] Dr. Karen Torres #0.9 103/ulCritically low1.2-3.8The [facility] Comment on above:Performed By: #### UA #### [facility] [address] [place] [address] Dr. Karen Brandthocytes/100 WBC (Bld)7.1 %Critically low20.5-60.0[facility] Hospital CompanyComment on above:Performed By: #### UA #### [facility] [address] [place] [address] Dr. Karen GarzaUAL DIFF REQNONormalThe [facility] HospitalComment on above: Performed By: #### UA #### [facility] [address] [place] [address] Dr. Karen Whitt (RBC) [Entitic mass]27.7 fsJnbvse97.9-34.0The [facility] HospitalComment on above:Performed By: #### UA #### [facility] [address] [place] [address] Dr. Karen Michael (RBC) [Mass/Vol]31.9 g/sZNsghfr87.9-35.2The [facility] HospitalComment on above:Performed By: #### UA #### [facility] [address] [place] [address] Dr. Karen Schuster (RBC) [Entitic vol]86.7 pKGwddmv17.0-94.0The [facility] HospitalComment on above:Performed By: #### UA #### [facility] [address] [place] [address] Dr. Karen Monteiro #1.0 103/ulCritically high0.3-0.8The [facility] Comment on above:Performed By: #### UA #### [facility] [address] [place] [address] Dr. Karen Elizabethocytes/100 WBC (Bld)8.5 %Normal1.7-12.0The [facility] Comment on above:Performed By: #### UA #### [facility] [address] [place] [address] Dr. Karen Cronin #9.9 103/ulCritically high1.4-6.5The [facility] Comment on above:Performed By: #### UA #### [facility] [address] [place] [address] Dr. Karen Bakerutrophils/100 WBC (Bld)82.9 %Critically high43.0-75.0The [facility] HospitalComment on above:Performed By: #### UA #### [facility] [address] [place] [address] Dr. Karen Burkett mean volume (Bld) [Entitic vol]9.7 fLNormal9.5-13.5The [facility] HospitalComment on above:Performed By: #### UA #### [facility] [address] [place] [address] Dr. Karen LoyaT206 103/llFpmmna136-071Cpm [facility] HospitalComment on above: Performed By: #### UA #### [facility] [address] [place] [address] Dr. Karen PierceRBC4.59 106/ulCritically low4.70-6.10The [facility] HospitalComment on above:Performed By: #### UA #### [facility] [address] [place] [address] Dr. Karen PierceWBC11.9 103/ulCritically high4.0-11.0The [facility] HospitalComment on above:Performed By: #### UA #### [facility] [address] [place] [address] Dr. Karen PierceLIPASEon 71-65-5453Ykmexr [Catalytic activity/Vol]340.0 U/LNormal 73.0-393.0The [facility] Hospitalment on above:Performed By: #### UA #### [facility] [address] [place] [address] Dr. Karen Leos 14(COMP METB)on 49-21-2052Nhselce [Mass/Vol]3.1 g/dL Critically low3.4-5.0The [facility] on above:Performed By: #### UA #### [facility] [address] [place] [address] Dr. Karen PierceAlbumin/Globulin [Mass ratio]0.7 {ratio}NormalThe [facility] HospitalComharper university hospital on above:Performed By: #### UA #### [facility] [address] [place] [address] Dr. Karen Murillo [Catalytic activity/Vol]105 U/SBvbnnl73-511Vrb [facility] HospitalComhar[facility] university hospital on above:Performed By: #### UA #### [facility] [address] [place] [address] Dr. Karen Matthew [Catalytic activity/Vol]49 U/SAgxkwb86-36Svn [facility] HospitalComment on above:Performed By: #### UA #### [facility] [address] [place] [address] Dr. Karen Landon gap [Moles/Vol]18.4 mmol/LNormalRegency Hospital Company Comment on above:Performed By: #### UA #### [facility] [address] [address] [address] Karen PierceAST [Catalytic activity/Vol]20 U/WKajgmc65-84Dyh [facility] HospitalComment on above:Performed By: #### UA #### [facility] [address] [address] [address] Karen PierceBilirubin [Mass/Vol]0.3 mg/dLNormal0.2-1.0The [facility] Comment on above:Performed By: #### UA #### [facility] [address] [address] [address] Karen PierceCalcium [Mass/Vol]9.1 mg/dLNormal8.5-10.1The [facility] Comment on above:Performed By: #### UA #### [facility] [address] [place] [address] Dr. Karen PierceChloride [Moles/Vol]103 mmol/SMfjazk28-615Mfm [facility] Comment on above:Performed By: #### UA #### [facility] [address] [place] [address] Dr. Karen PierceCO2 [Moles/Vol]20.1 mmol/LCritically low21.0-32.0The [facility] HospitalComment on above:Performed By: #### UA #### [facility] [address] [address] [address] Karen PierceCreatinine [Mass/Vol]9.58 mg/dLCritically high0.70-1.30The [facility] HospitalComment on above:Performed By: #### UA #### [facility] [address] [place] [address] Dr. Jones ChangEGFR-AF AMERICAN6 mL/min/1.88z5Bxtllmfzck low>=60The [facility] HospitalComment on above:Performed By: #### UA #### [facility] [address] [place] [address] Dr. Karen ReyesGFR-NON AF AMERICAN5 mL/min/1.96g8Hmvevfoapd low>=60The [facility] HospitalComment on above:Performed By: #### UA #### [facility] [address] [address] [address] Karen PierceGlobulin (S) [Mass/Vol]4.6 g/dLNormalThKettering Health – Soin Medical CenterComment on above:Performed By: #### UA #### [facility] [address] [address] [address] Karen PierceGlucose [Mass/Vol]114 mg/dLCritically elix52-792Odh [facility] HospitalComment on above:Performed By: #### UA #### [facility] [address] [place] [address] Dr. Karen PiercePotassium [Moles/Vol]5.5 mmol/LCritically high3.5-5.1The [facility] HospitalComment on above:Performed By: #### UA #### [facility] [address] [place] [address] Dr. Karen PierceProtein [Mass/Vol]7.7 g/dLNormal6.4-8.2The [facility] Comment on above:Performed By: #### UA #### [facility] [address] [place] [address] Dr. Karen PierceSodium [Moles/Vol]136 mmol/UDkkfee480-510Ihv [facility] Comment on above:Performed By: #### UA #### [facility] [address] [place] [address] Dr. Karen PierceUrea nitrogen [Mass/Vol]134.0 mg/dLCritically high7.0-18.0The [facility] HospitalComment on above:Performed By: #### UA #### [facility] [address] [place] [address] Dr. Karen Kennedy nitrogen/Creatinine [Mass ratio]14.0 mg/mgNormalThKettering Health – Soin Medical CenterComment on above:Performed By: #### UA #### [facility] [address] [place] [address] Dr. Karen JonesF CHEM 8 (BAS METB)on 50-36-4989Nzlgz gap [Moles/Vol]12.6 mmol/LNormalRegency Hospital CompanyComment on above:Performed By: #### BMP #### [facility] [address] [address] [address] Karen PierceCalcium [Mass/Vol]8.7 mg/dLNormal8.5-10.1The [facility] Comment on above:Performed By: #### BMP #### [facility] [address] [address] [address] Karen PierceChloride [Moles/Vol]103 mmol/YHwyben26-045Zlh [facility] Comment on above:Performed By: #### BMP #### [facility] [address] [place] [address] Dr. Karen PierceCO2 [Moles/Vol]27.3 mmol/BHhoagq32.0-32.0The [facility] Comment on above:Performed By: #### BMP #### [facility] [address] [address] [address] Karen PierceCreatinine [Mass/Vol]1.26 mg/dLNormal0.70-1.30The [facility] HospitalComment on above:Performed By: #### BMP #### [facility] [address] [address] [address] Jones ChangEGFR-AF BERMUDIAN>60Normal>=60The [facility] HospitalComment on above:Performed By: #### BMP #### [facility] [address] [address] [address] Karen ReyesGFR-NON AF KWSMZZWM14 mL/min/1.35i6Mieocfkymk low>=60The [facility] HospitalComment on above:Performed By: #### BMP #### [facility] [address] [place] [address] Dr. Karen PierceGlucose [Mass/Vol]111 mg/dLCritically riks85-571Uap [facility] HospitalComment on above:Performed By: #### BMP #### [facility] [address] [address] [address] Karen PiercePotassium [Moles/Vol]3.9 mmol/LNormal3.5-5.1The [facility] Comment on above:Performed By: #### BMP #### [facility] [address] [address] [address] Karen PierceSodium [Moles/Vol]139 mmol/LLqwpdm783-891Yob [facility] Comment on above:Performed By: #### BMP #### [facility] [address] [address] [address] Karen PierceUrea nitrogen [Mass/Vol]21.0 mg/dLCritically high7.0-18.0The [facility] HospitalComment on above:Performed By: #### BMP #### [facility] [address] [address] [address] Karen PierceUrea nitrogen/Creatinine [Mass ratio]16.7 mg/mgNormalThe [facility] HospitalComment on above:Performed By: #### BMP #### [facility] [address] [address] [address] Karen PierceComprehensive Metabolic Panelon [id number] [Mass/Vol]4.5 g/dLNormal3.6-5.1[facility] SpecialistComment on above:Performed By: #### CMP, LIPD #### [facility] [address], [place] [id number]/Globulin [Mass ratio]2.0 {ratio}Normal1.0-2.5Nortphoenix indian medical centern [facility] SpecialistComment on above:Performed By: #### CMP, LIPD #### [facility] [address], [place] [id number] [Catalytic activity/Vol]97 U/LTandea22-813Mfdhnpcv [facility] SpecialistComment on above:Performed By: #### CMP, LIPD #### [facility] [address], [place] [id number] [Catalytic activity/Vol]18 U/LNormal9-46[facility] SpecialistComment on above:Result Comment: 04/25/2021 Female reference range changed.Performed By: #### CMP, LIPD #### [facility] [address] [place], [place] [id number] gap [Moles/Vol]17 mmol/EJwlten59-78Vtgvbexa [facility] SpecialistComment on above:Result Comment: Effective 05/31/2019 reference range changed.Performed By: #### CMP, LIPD #### [facility] [address] [place], [place] [id number] [Catalytic activity/Vol]15 U/YUhxosz41-47Tmildvzk [facility] SpecialistComment on above:Performed By: #### CMP, LIPD #### [facility] [address] [place], [place] [id number] [Mass/Vol]0.55 mg/dLNormal0.30-1.20NortLicking [facility] SpecialistComment on above:Performed By: #### CMP, LIPD #### [facility] [address] [place], [place] [id number]/CREA17 RatioNormal6-22NoSt. John's Health Center Countersinker [employer] Comment on above:Performed By: #### CMP, LIPD #### [facility] [address] [place], [place] [id number] [Mass/Vol]9.8 mg/dLNormal8.6-10.2[facility] SpecialistComment on above:Performed By: #### CMP, LIPD #### [facility] [address] [place], [place] [id number] [Moles/Vol]106 mmol/IUafceg99-775Vtnzwgyl [facility] SpecialistComment on above:Performed By: #### CMP, LIPD #### [facility] [address] [place], [place] [id number] [Moles/Vol]23 mmol/PUqemva76-90Ztushxbf [facility] SpecialistComment on above:Performed By: #### CMP, LIPD #### [facility] [address] [place], [place] [id number] [Mass/Vol]1.2 mg/dLNormal0.7-1.4NoTri[facility] SpecialistComment on above:Performed By: #### CMP, LIPD #### [facility] [address] [place], [place] [id number] mL/min/1.78k5Hmgkii>60NoTri[facility] SpecialistComment on above:Performed By: #### CMP, LIPD #### [facility] [address] [place], [place] [id number] mL/min/1.39o9Apo>60NoTri[facility] Specialist Comment on above:Performed By: #### CMP, LIPD #### [facility] [address] [place], [place] [id number] (S) [Mass/Vol]2.3 g/dLNormal1.9-3.7NoTriHealth [facility] SpecialistComment on above:Performed By: #### CMP, LIPD #### [facility] [address] [place], [place] [id number] [Mass/Vol]105 mg/hCDiad95-19Hhrxhnor [facility] SpecialistComment on above:Result Comment: For FASTING Glucose --- ADA reference ranges: Normal 65-99 mg/dl Prediabetes 100-125 Diabetes >/= 126Performed By: #### CMP, LIPD #### [facility] [address] [place], [place] [id number] [Moles/Vol]4.1 mmol/LNormal3.5-5.5NoTri[facility] SpecialistComment on above:Performed By: #### CMP, LIPD #### [facility] [address] [place], [place] [id number] [Mass/Vol]6.8 g/dLNormal6.1-8.1NortherOhio [facility] Surgical Hospital SpecialistComment on above:Performed By: #### CMP, LIPD #### [facility] [address] [place], [place] [id number] [Moles/Vol]142 mmol/LQazbmn756-676Foevsvwt [facility] SpecialistComment on above:Performed By: #### CMP, LIPD #### [facility] [address] [place], [place] [id number] nitrogen [Mass/Vol]20 mg/dLNormal7-25NortL[facility] SpecialistComment on above:Performed By: #### CMP, LIPD #### [facility] [address] [place], [place] [id number] Panelon 78-19-3963Dfbbxofqwtc [Mass/Vol]109 mg/dLLow 125-200NoTri[facility] SpecialistComment on above:Result Comment: Low risk < 200mg/dL Borderline risk 201-239 mg/dl High risk > or equal to 240Performed By: #### CMP, LIPD #### [facility] [address] [place], [place] [id number] in HDL [Mass/Vol]30 mg/dLLow>40NoTri[facility] SpecialistComment on above:Result Comment: High Cardiovascular Risk HDL <40 mg/dL Low Cardiovascular Risk HDL > or equal to 60 mg/dlPerformed By: #### CMP, LIPD #### [facility] [address] [place], [place] [id number] in LDL [Mass/Vol]54 mg/dLNoUC [facility] SpecialistComment on above:Result Comment: LDL ATP III CLASSIFICATION LDL less than 100 mg/dl Optimal LDL 100-129 mg/dl Near or above optimal LDL 130-159 Borderline high LDL 160-189 High LDL greater than 189 mg/dl Very HighPerformed By: #### CMP, LIPD #### [facility] [address] [place], [place] [id number] in VLDL [Mass/Vol]25 mg/dLNormalNoTri[facility] SpecialistComment on above:Performed By: #### CMP, LIPD #### [facility] [address] [place], [place] [id number].total/Cholesterol in HDL [Mass ratio]4 {ratio} NormalM[facility]field Hospital SpecialistComment on above:Performed By: #### CMP, LIPD #### [facility] [address] [place], [place] [id number] [Mass/Vol]126 mg/aBJaywnz60-017Unennhkd [facility] SpecialistComment on above:Result Comment: TRIG ATPIII CLASSIFICATIONS TRIG less than 150 mg/dl Normal TRIG 150-199 mg/dl Borderline High TRIG 200-500 mg/dl High TRIG greather than 500 mg/dl Very HighPerformed By: #### CMP, LIPD #### [facility] [address] [place], [place] [id number] Vital Signs Date TimeVital SignValuePerforming VllauvxwbVudfbgqz30-88-9549 10:56-0500Body bmakhx369 cmTeo Al MD Work Phone: [facility]11-04-2025 10:56-0500 Body mass index (BMI) [Ratio]25.04 kg/s9JzdcayTeo Al MD Work Phone: [facility]11-04-2025 10:56-0500 Body qhqsiu79.45 kgTeo Al MD Work Phone: [facility]11-04-2025 10:56-0500 Diastolic blood qqlfzvyd74 mm[Hg]Teo Al MD Work Phone: [facility]11-04-2025 10:56-0500 Heart rate63 /minTeo Al MD Work Phone: [facility]11-04-2025 10:56-0500 Systolic blood urwsuile606 mm[Hg]Teo Al MD Work Phone: [facility]10-15-2025 14:24-0400 Body .96 Mitra Emerson MD Work Phone: [facility]10-15-2025 14:24-0400 Body mass index (BMI) [Ratio]24.7 kg/r7SqzbpqStanley Emerson MD Work Phone: [facility]10-15-2025 14:24-0400 Body bwglky42.2 kgStanley Emerson MD Work Phone: 1(567)[address] [place], [place] 4975210-15-2025 14:24-0400 Diastolic blood mm[Hg]Stanley Emerson MD Work Phone: 1(216)[address] [place], [place] 4975210-15-2025 14:24-0400 Heart rate60 /Fior Emerson MD Work Phone: 1(306)[address] [place], [place] 4975210-15-2025 14:24-0400 Respiratory rate16 /Fior Emerson MD Work Phone: 1(312)[address] [place], [place] 4975210-15-2025 14:24-0400 SaO2% (BldA) [Mass fraction]96 %Stanley Emerson MD Work Phone: 1(065)[address] [place], [place] 4975210-15-2025 14:24-0400 Systolic blood mm[Hg]Stanley Emerson MD Work Phone: 1(131)[address] [place], [place] 4975206-11-2025 15:54-0400 Body phztuz181.96 cmEharmony Emerson MD Work Phone: 1(264)[address] [place], [place] 4975206-11-2025 15:54-0400 Body mass index (BMI) [Ratio]25.7 kg/f6BvvwuyStanley Emerson MD Work Phone: 1(071)[address] [place], [place] 4975206-11-2025 15:54-0400 Body kgroxs55.77 kgStanley Emerson MD Work Phone: 1(518)[address] [place], [place] 4975206-11-2025 15:54-0400 Diastolic blood mm[Hg]Stanley Emerson MD Work Phone: 1(283)[address] [place], [place] 4975206-11-2025 15:54-0400 Heart rate66 /Fior Emerson MD Work Phone: 1(758)[address] [place], [place] 4975206-11-2025 15:54-0400 Respiratory rate16 /Fior Emerson MD Work Phone: 1(634)[address] [place], [place] 4975206-11-2025 15:54-0400 SaO2% (BldA) [Mass fraction]99 %Stanley Emerson MD Work Phone: 1(633)[address] [place], [place] 4975206-11-2025 15:54-0400 Systolic blood ytjrgcoc93 mm[Hg]Stanley Emerson MD Work Phone: 1(391)[address] [place], [place] 4975205-22-2025 15:01-0400 Diastolic blood ltcpsiji66 mm[Hg]Stanley Emerson MD Work Phone: 1(321)[address] [place], [place] 0441505-22-2025 15:01-0400Systolic blood kkgevuxn89 mm[Hg]Stanley Emerson MD Work Phone: 1(243)[address] [place], [place] 0441505-19-2025 17:50-0400Diastolic blood rggjaqxc41 mm[Hg]Stanley Emerson MD Work Phone: 1(463)[address] [place], [place] 4975205-19-2025 17:50-0400 Heart rate66 /Fior Emerson MD Work Phone: 1(479)[address] [place], [place] 4975205-19-2025 17:50-0400 Respiratory rate20 /Fior Emerson MD Work Phone: 1(862)[address] [place], [place] 4975205-19-2025 17:50-0400 SaO2% (BldA) [Mass fraction]95 %Stanley Emerson MD Work Phone: [address] [place], [place] 4975205-19-2025 17:50-0400 Systolic blood aiqgmfaw194 mm[Hg]Stanley Emerson MD Work Phone: 1(993)[address] [place], [place] 4975205-19-2025 14:20-0400 Body izufjrqdvna44.6 [degF]Stanley Emerson MD Work Phone: 1(470)[address] [place], [place] 4975205-19-2025 13:50-0400 Inhaled oxygen flow rate2 L/Fior Emerson MD Work Phone: 1(995)[address] [place], [place] 4975205-19-2025 12:16-0400 Body dbigqm934.96 Mitra Emerson MD Work Phone: 1(548)[address] [place], [place] 4975205-19-2025 12:16-0400 Body bsenuv37.26 kgStanley Emerson MD Work Phone: [facility]05-16-2025 14:43-0400 Body dzfuwe492 cmRuby [place] MD Work Phone: [facility]05-16-2025 14:43-0400 Body mass index (BMI) [Ratio]25.68 kg/m2Ruby [place] MD Work Phone: [facility]05-16-2025 14:43-0400 Body ndovic44.72 kgRuby [place] MD Work Phone: [facility]05-16-2025 14:43-0400 Diastolic blood hstryikf74 mm[Hg]Ruby [place] MD Work Phone: [facility]05-16-2025 14:43-0400 Heart rate75 /Tevin [place] MD Work Phone: [facility]05-16-2025 14:43-0400 Systolic blood ozuhwpdl15 mm[Hg]Ruby [place] MD Work Phone: [facility]05-13-2025 08:35-0400 Diastolic blood byhhtohr18 mm[Hg]Julio Cesar Gaspar MD Work Phone: [facility]05-13-2025 08:35-0400Heart rate66 /Mary Gaspar MD Work Phone: [facility]05-13-2025 08:35-0400Systolic blood xjfoqyuc072 mm[Hg]Julio Cesar Gaspar MD Work Phone: [facility]05-13-2025 07:05-0400Body pnuuhacanls53.1 [degF]Julio Cesar Gaspar MD Work Phone: [facility]05-13-2025 07:05-0400 Respiratory rate18 /minJulio Cesar Gaspar MD Work Phone: [facility]05-13-2025 07:05-6547JmR2% (BldA) [Mass fraction]94 %Julio Cesar Gaspar MD Work Phone: [facility]05-10-2025 16:30-0400Body cijigz158 Milly Gaspar MD Work Phone: [facility]05-10-2025 16:30-0400Body mass index (BMI) [Ratio]22.47 kg/h6OuxzyxJulio Cesar Gaspar MD Work Phone: [facility]05-10-2025 16:30-0400Body bowdwg58.38 kgJulio Cesar Gaspar MD Work Phone: [facility]05-01-2025 09:38-0400Body nbgibozxsbe28.6 [degF][facility]05-01-2025 09:38-0400 Diastolic blood auxheawf04 mm[Hg][facility]05-01-2025 09:38-0400Heart rate72 /[facility]05-01-2025 09:38-0400Respiratory rate16 /[facility]05-01-2025 09:38-7795OpX0% (BldA) [Mass fraction]98 %[facility] 09-23-2024 09:38-0400Systolic blood briiccfh933 mm[Hg][facility]04-29-2025 14:08-0400Body zunevc901 Mitra Emerson MD Work Phone: [facility]wnErhgoarrvs69-92-4129 14:08-0400Body mass index (BMI) [Ratio]26.06 kg/l2UrlozxStanley Emerson MD Work Phone: [facility]Uzqhnchtlr97-10-3867 14:08-0400Body shilir38.08 kgStanley Emerson MD Work Phone: [facility] LawnOrovtugkqm17-32-3247 09:40-0400Body jrxhyn184 cm Teo Al MD Work Phone: [facility]04-18-2025 09:40-0400 Body mass index (BMI) [Ratio]26.32 kg/w4ImrlecTeo Al MD Work Phone: 1(580)402-[address] [place], [place] 7908204-18-2025 09:40-0400 Body .99 kgTeo Al MD Work Phone: 1(729)414[address]04-18-2025 09:40-0400 Diastolic blood woioydpb69 mm[Hg]Teo Al MD Work Phone: 1(615)[address]04-18-2025 09:40-0400 Heart rate68 /minTeo Al MD Work Phone: 1(496)[address]04-18-2025 09:40-0400 Systolic blood kjgpqepm955 mm[Hg]Teo Al MD Work Phone: 1(002)[address]03-19-2025 10:26-0400 Body vcuate047.96 cmEharmony Emerson MD Work Phone: 1(578)[address]03-19-2025 10:26-0400 Body mass index (BMI) [Ratio]26.1 kg/i7WyxdjuStanley Emerson MD Work Phone: 1(632)[address]03-19-2025 10:26-0400 Body xigtxd10.19 kgStanley Emerson MD Work Phone: 1(983)[address]03-19-2025 10:26-0400 Diastolic blood imrjpgvm62 mm[Hg]Stanley Emerson MD Work Phone: 1(190)360-[address] [place], [place] 6611803-19-2025 10:26-0400 Heart rate65 /Fior Emerson MD Work Phone: 1(679)069-[address] [place], [place] 6611803-19-2025 10:26-0400 Respiratory rate16 /Fior Emerson MD Work Phone: 1(353)124-[address] [place], [place] 6611803-19-2025 10:26-0400 SaO2% (BldA) [Mass fraction]97 %Stanley Emerson MD Work Phone: [facility]03-19-2025 10:26-0400 Systolic blood aokbwbiu067 mm[Hg]Stanley Emerson MD Work Phone: [facility]03-06-2025 11:13-0500 Body ukkxtm100 cmTeo Al MD Work Phone: [facility]03-06-2025 11:13-0500 Body mass index (BMI) [Ratio]26.19 kg/e1NbuzhbTeo Al MD Work Phone: [address] [place], [place] 1691503-06-2025 11:13-0500 Body cuiqjs14.53 kgTeo Al MD Work Phone: 1(318)011-[address] [place], [place] 7908203-06-2025 11:13-0500 Diastolic blood rywmqadh93 mm[Hg]Teo Al MD Work Phone: [address] [place], [place] 1691503-06-2025 11:13-0500 Heart rate67 /minTeo Al MD Work Phone: [facility]03-06-2025 11:13-0500 Systolic blood dlnrsmxi98 mm[Hg]Teo Al MD Work Phone: [address] [place], [place] 1691502-20-2025 10:31-0500 Blood Pressure LocationJENNIFER JOSSELIN [facility]02-20-2025 10:31-0500Diastolic blood scowqtrl74 mm[Hg]HEATHER JOSSELIN [facility]02-20-2025 10:31-0500Heart rate68 /minJENNIFER JOSSELIN [facility]02-20-2025 10:31-0500Respiratory rate18 /minJENNIFER JOSSELIN [facility]02-20-2025 10:31-0500Systolic blood hmebxbmv27 mm[Hg]HEATHER OMALLEY [facility]12-27-2024 09:47-0500Body dauacz262 cmTeo Al MD Work Phone: 1([phone]12-27-2024 09:47-0500 Body mass index (BMI) [Ratio]26.58 kg/h5SholozTeo Al MD Work Phone: 1(220)41420 [address]12-27-2024 09:47-0500 Body wnxdac85.89 kgTeo Al MD Work Phone: 1(727)[address] [place], [place] 7908212-27-2024 09:47-0500 Diastolic blood yeuhbdmi70 mm[Hg]Teo Al MD Work Phone: 1(706)414[address] [place], [place] 7908212-27-2024 09:47-0500 Heart rate80 /minTeo Al MD Work Phone: 1(750)691-[address] [place], [place] 7908212-27-2024 09:47-0500 Systolic blood ehjtpjgi744 mm[Hg]Teo Al MD Work Phone: 1(005)037-[address] [place], [place] 7908212-19-2024 14:38-0500 Body bgseqc914 cmEharmony Emerson MD Work Phone: [facility] LawnJpwkegancp26-66-1705 14:38-0500Body mass index (BMI) [Ratio]26.06 kg/w3RvumdvStanley Emerson MD Work Phone: [facility] LawnFyreusrufh24-58-0359 14:38-0500Body wximha96.08 kgStanley Emerson MD Work Phone: [facility] LawnCknzaqhtpy80-30-8435 14:38-0500Diastolic blood fpmlyjww20 mm[Hg]Stanley Emerson MD Work Phone: [place] [address]Ymqkpcznrk57-54-9399 14:38-0500Heart rate77 /min Stanley Emerson MD Work Phone: [facility] LawnPpzwcflwiz73-45-0245 14:38-9699TaT9% (BldA) [Mass fraction]97 %Stanley Emerson MD Work Phone: [facility] LawnIecpwojgvl68-71-2171 14:38-0500Systolic blood ggzgivue264 mm[Hg]Stanley Emerson MD Work Phone: [facility] LawnOidpqyyzpd82-04-8405 11:14-0500Blood Pressure LocationFltamara SAMUELS [facility] [place] 519581-12-2024 11:14-0500Diastolic blood pjirilko00 mm[Hg]Katia SAMUELS [facility] [place] 519581-12-2024 11:14-0500Heart rate79 /minKatia SAMUELS [facility] [place] 416511-12-2024 11:14-0500Systolic blood zssoljfz815 mm[Hg]Katia SAMUELS [facility] [place] 519580-24-2024 11:18-0400Body cpvqak191 cmEdludy Emerson MD Work Phone: [phone] LawnHjbkvyotyx00-53-6723 11:18-0400Body mass index (BMI) [Ratio]28.63 kg/j2ZhtchbStanley Emerson MD Work Phone: 1(660)1732[facility] LawnEtdnhrvtty64-07-7949 11:18-0400Body aldnbp261.15 kgStanley Emerson MD Work Phone: [facility] LawnHdtmjtrrse79-20-8827 11:18-0400Heart rate82 /min Stanley Emerson MD Work Phone: [facility] LawnDeuywwozro43-54-3003 11:18-0233GpO1% (BldA) [Mass fraction]97 %Stanley Emerson MD Work Phone: [facility] LawnAgqpjnfipt81-90-1186 12:45-0400Body rwknmu494.96 cmMD Stanley Emerson Work Phone: 1(686)441-[address] [place], [place] 6611810-14-2024 12:45-0400 Body mass index (BMI) [Ratio]25.6 kg/m2MD Stanley Emerson Work Phone: 1(732)[address] [place], [place] 4975210-14-2024 12:45-0400 Body pyfexpiwosb17.3 [degF]MD Stanley Emerson Work Phone: 1(479)03407 [address]10-14-2024 12:45-0400 Body .43 kgMD Stanley Emerson Work Phone: 1(277)01407 [address]10-14-2024 12:45-0400 Diastolic blood iiyejcrb85 mm[Hg]MD Stanley Emerson Work Phone: 1(828)[address] [place], [place] 4975210-14-2024 12:45-0400 Heart rate92 /minMD ludy Emerson Work Phone: 1(750)[address] [place], [place] 4975210-14-2024 12:45-0400 SaO2% (BldA) [Mass fraction]99 %MD Stanley Emerson Work Phone: 1(207)28307 [address]10-14-2024 12:45-0400 Systolic blood mm[Hg]MD Stanley Emerson Work Phone: 1(210)[address]10-01-2024 15:19-0400 Body xnwmai196 cmLeanna [facility]10-01-2024 15:19-0400Body mass index (BMI) [Ratio]26.32 kg/p1NwdqojMcBride [facility] [place]-01-2024 15:19-0400Body oanddi89.99 [facility]Big [facility]-01-2024 15:19-0400Diastolic blood jmifefyf94 mm[Hg]Leanne [facility]10-01-2024 15:19-0400 Heart rate85 /minSandraanna [facility]10-01-2024 15:19-0400Systolic blood ismozpdp154 mm[Hg]Leanne [facility]09-24-2024 11:52-0400Body cmEdludy Emerson MD Work Phone: [facility] LawnFlfulijchc68-41-3653 11:52-0400Body mass index (BMI) [Ratio]28.63 kg/y5KhxpcoStanley Emerson MD Work Phone: [facility] LawnYzxeyipobw86-52-9457 11:52-0400Body obbitz306.15 kgStanley Emerson MD Work Phone: [facility] LawnYdjxjapamp21-54-8407 09:13-0400Body cm Teo Al MD Work Phone: 1(342)[address]09-17-2024 09:13-0400 Body mass index (BMI) [Ratio]26.32 kg/v5IopieoTeo Al MD Work Phone: 1(107)[address]09-17-2024 09:13-0400 Body todvhk63.99 kgTeo Al MD Work Phone: 1(687)42920 [address]09-17-2024 09:13-0400 Diastolic blood jyksyxvo18 mm[Hg]Teo Al MD Work Phone: 8(703)899-[address] [place], [place] 7908209-17-2024 09:13-0400 Heart rate79 /minTeo Al MD Work Phone: 1(891)932-[address] [place], [place] 7908209-17-2024 09:13-0400 Systolic blood kpeggezj615 mm[Hg]Teo Al MD Work Phone: 3(945)825-[address] [place], [place] 7908209-11-2024 11:48-0400 Body ggrexv663.96 cmMD Stanley Emerson Work Phone: [facility]09-11-2024 11:48-0400 Body mass index (BMI) [Ratio]28.2 kg/m2MD Stanley Emerson Work Phone: 1(585)[address] [place], [place] 4975209-11-2024 11:48-0400 Body newqzspeycg04.1 [degF]MD Stanley Emerson Work Phone: 1(404)[address] [place], [place] 4975209-11-2024 11:48-0400 Body engceu98.79 kgMD Stanley Emerson Work Phone: 1(879)[address] [place], [place] 4975209-11-2024 11:48-0400 Diastolic blood wpngpgwi65 mm[Hg]MD Stanley Emerson Work Phone: 1(000)[address] [place], [place] 4975209-11-2024 11:48-0400 Heart rate76 /minMD Stanley Emerson Work Phone: 1(582)[address] [place], [place] 4975209-11-2024 11:48-0400 Respiratory rate18 /minMD Stanley Emerson Work Phone: 1(035)[address] [place], [place] 4975209-11-2024 11:48-0400 SaO2% (BldA) [Mass fraction]96 %MD Stanley Emerson Work Phone: 1(542)[address] [place], [place] 4975209-11-2024 11:48-0400 Systolic blood mm[Hg]MD Stanley Emerson Work Phone: 1(489)[address] [place], [place] 4975208-30-2024 15:00-0400 Body ozfdgu934.96 cmMD Stanley Emerson Work Phone: 1(971)[address] [place], [place] 4975208-30-2024 11:19-0400 Diastolic blood mm[Hg]MD Stanley Emerson Work Phone: 1(258)[address] [place], [place] 4975208-30-2024 11:19-0400 Heart rate64 /minMD Stanley Emerson Work Phone: 1(129)[address] [place], [place] 4975208-30-2024 11:19-0400 Systolic blood xcsffuqe85 mm[Hg]MD Stanley Emerson Work Phone: 1(486)[address] [place], [place] 4975208-30-2024 11:13-0400 Respiratory rate20 /minMD Stanley Emerson Work Phone: 1(133)[address] [place], [place] 4975208-30-2024 11:13-0400 SaO2% (BldA) [Mass fraction]96 %MD Stanley Emerson Work Phone: 1(096)[address] [place], [place] 4975208-30-2024 04:44-0400 Body ykooyi27.6 kgMD Peteludy Idania Work Phone: 1(764)[address] [place], [place] 4975208-29-2024 23:41-0400 Body bkoafwekblb10.2 [degF]MD Stanley Emerson Work Phone: 1(076)[address] [place], [place] 4975208-26-2024 10:00-0400 Inhaled oxygen flow rate2 L/minMD Peteludy Idania Work Phone: 1(128)[address] [place], [place] 4975208-21-2024 09:35-0400 Diastolic blood nclumhiu61 mm[Hg]MD Stanley Emerson Work Phone: 1(443)[address] [place], [place] 4975208-21-2024 09:35-0400 Heart rate65 /minMD ludy Idania Work Phone: 1(038)[address] [place], [place] 4975208-21-2024 09:35-0400 Respiratory rate16 /minMD Stanley Emerson Work Phone: 1(687)[address] [place], [place] 4975208-21-2024 09:35-0400 SaO2% (BldA) [Mass fraction]97 %MD Stanley Emerson Work Phone: 1(287)[address] [place], [place] 4975208-21-2024 09:35-0400 Systolic blood bpdkwlhy432 mm[Hg]MD Stanley Emerson Work Phone: 1(986)[address] [place], [place] 4975208-21-2024 07:41-0400 Body ttydca659.96 cmMD Stanley Emerson Work Phone: 1(336)[address] [place], [place] 4975208-21-2024 07:41-0400 Body mbgysj013.32 kgMD Stanley Emerson Work Phone: 1(441)[address] [place], [place] 4975205-29-2024 10:57-0400 Body hjyyil903.96 cmMD Peteludy Idania Work Phone: 1(781)[address] [place], [place] 4975205-29-2024 10:57-0400 Body mass index (BMI) [Ratio]28 kg/m2MD Peteludy Idania Work Phone: 1(816)[address] [place], [place] 4975205-29-2024 10:57-0400 Body qexcacorxzy29.8 [degF]MD Stanley Eemrson Work Phone: 1(478)[address] [place], [place] 4975205-29-2024 10:57-0400 Body bndpvu27.1 kgMD Stanley Idania Work Phone: 1(919)[address] [place], [place] 4975205-29-2024 10:57-0400 Diastolic blood thcmavsi81 mm[Hg]MD Stanley Emerson Work Phone: 1(152)[address] [place], [place] 4975205-29-2024 10:57-0400 Heart rate71 /minMD Peteludy Idania Work Phone: 1(333)[address] [place], [place] 4975205-29-2024 10:57-0400 Respiratory rate18 /minMD Peteludy Idania Work Phone: 1(340)[address] [place], [place] 4975205-29-2024 10:57-0400 SaO2% (BldA) [Mass fraction]98 %MD Stanley Emerson Work Phone: 1(349)[address] [place], [place] 4975205-29-2024 10:57-0400 Systolic blood qrkrwlfo819 mm[Hg]MD Stanley Emerson Work Phone: 1(611)[address] [place], [place] 4975204-25-2024 10:47-0400 Body boincb499.96 cmMD Stanley Emerson Work Phone: 1(095)[address] [place], [place] 4975204-25-2024 10:47-0400 Body mass index (BMI) [Ratio]28.6 kg/m2MD Peteludy Smithchery Work Phone: 1(958)[address] [place], [place] 4975204-25-2024 10:47-0400 Body bwszlnvyrvy06.8 [degF]MD Stanley Emerson Work Phone: [facility]04-25-2024 10:47-0400 Body zyuisl697.15 kgMD Stanley Emerson Work Phone: 1(117)031-[address] [place], [place] 4506704-25-2024 10:47-0400 Diastolic blood fdkrghut13 mm[Hg]MD Stanley Emerson Work Phone: [facility]04-25-2024 10:47-0400 Heart rate64 /minMD Stanley Emerson Work Phone: 1(612)620-[address] [place], [place] 4506704-25-2024 10:47-0400 Respiratory rate16 /minMD Stanley Emerson Work Phone: 1(231)917-[address] [place], [place] 6611804-25-2024 10:47-0400 SaO2% (BldA) [Mass fraction]98 %MD Stanley Emerson Work Phone: 1(494)549-[address] [place], [place] 4506704-25-2024 10:47-0400 Systolic blood winijlbz880 mm[Hg]MD Stanley Emerson Work Phone: [facility]02-05-2024 14:17-0500 Blood Pressure LocationPatrick [employer] [facility]02-05-2024 14:17-0500Diastolic blood tnpsuksy18 mm[Hg]Katia [employer] [facility]02-05-2024 14:17-0500Heart rate70 /minPatrick SAMUELS [facility]02-05-2024 14:17-0500Respiratory rate16 /minPatrick SAMUELS [facility]02-05-2024 14:17-0500Systolic blood dilvepkb300 mm[Hg]Katia [employer] [facility] Dbbgtfqo85-11-9049 14:00-0500Body rnerix702.96 cmAziabigail Griffin Other [employer] Other 060139-62-1979 14:00-0500Body mass index (BMI) [Ratio] 28.73 kg/m2Celia Francesaidee Other [employer] Other 11-21-2023 14:00-0500Body iejnkiamslo93.8 [degF]Celia Starkscatherineaidee Other [employer] Other 554703-49-4750 14:00-0500Body yaxjyz005.52 kgCelia Francesaidee Other [employer] Other 11-21-2023 14:00-0500Diastolic blood bizxwyft831 mm[Hg]Celia Griffin Other [employer] Other 11-21-2023 14:00-0500Respiratory rate18 /minCelia Starkscatherineaidee Other [employer] Other 11-21-2023 14:00-6625LcZ0% (BldA) [Mass fraction]96 % Celia Terezasaurav Other [employer] Other 11-21-2023 14:00-0500Systolic blood mm[Hg] Azcelestino Francess Other [employer] Other 413012-28-7221 13:38-0400Blood [facility]PaC[facility] [place] 416510-17-2023 13:38-0400Diastolic blood hupntald323 mm[Hg]Katia [facility]17-2023 13:38-0400Heart rate72 /minPatrick ABRIL [facility] [place] 416510-17-2023 13:38-0400Systolic blood sxobrckh037 mm[Hg]Katia [facility]ELS [facility]08-30-2023 09:57-0400Body hqzjaj491.96 cmEharmony Emerson Work Phone: 1(811) 115-6698691-2462JR-[facility]wc [facility] 250 DO Work Phone: 1(516) 201-826508-30-2023 09:57-0400Body mass index (BMI) [Ratio] 27.35 kg/t9WgqludStanley Emerson Work Phone: 1(441) 396-4465180-4680JJ-Yhllg [facility] 250 DO Work Phone: 1(668) 325-759308-30-2023 09:57-0400Body surface area Derived from formula2.23 s2DeopifStanley Emerson Work Phone: 1(148) [phone]-Fzjlr [facility] 250 DO Work Phone: 1(453) 665-128808-30-2023 09:57-0400Body dyblcm09.62 kgStanley Emerson Work Phone: 1(685) 379-4390984-0786YQ-Pwctl [facility] 250 DO Work Phone: 1(136) 836-831808-30-2023 09:57-0400Diastolic blood pryihycc79 mm[Hg] Stanley Emerson Work Phone: 1(472) 750-7703654-9729JV-Bwfqk [facility] 250 DO Work Phone: 1(337) 703-294708-30-2023 09:57-0400Heart rate72 /minEharmony Emerson Work Phone: 1(710) [phone]-Hhrrn [facility] 250 DO Work Phone: 1(580) 445-564908-30-2023 09:57-0400Systolic blood xyqbvwmn530 mm[Hg] Stanley Emerson Work Phone: 1(900) [phone]-Ftmlo [facility] 250 DO Work Phone: 1(789) 241-977203-29-2023 14:30-0400Body nqzony657.96 cmCarlene Kasper Other [employer] Other 03-29-2023 14:30-0400Body mass index (BMI) [Ratio] 26.32 kg/n2FpbnbeCarlene Kasper Other [employer] Other 03-29-2023 14:30-0400Body cnltijpkzwx11.8 [degF]Carlene Ranjith Other [employer] Other 03-29-2023 14:30-0400Body qaigbo17.99 kgSeanemiliana Mezatrey Other [employer] Other 03-29-2023 14:30-0400Diastolic blood zjvqteku04 mm[Hg] Carlene Kasper Other [employer] Other 03-29-2023 14:30-5612AkE9% (BldA) [Mass fraction]96 % Carlene Kasper Other [employer] Other 03-29-2023 14:30-0400Systolic blood mm[Hg] Carlene Kasper Other [employer] Other 03-08-2023 07:25-0500Blood Pressure LocationPaparkview health SAMUELS [facility]03-08-2023 07:25-0500Diastolic blood zhauacdv53 mm[Hg]Katia SAMUELS [facility]03-08-2023 07:25-0500Heart rate70 /minPaLuckyFish Games [facility]03-08-2023 07:25-0500Respiratory rate16 /minPaLuckyFish Games [facility]03-08-2023 07:25-0500Systolic blood hksswafk993 mm[Hg]Katia SAMUELS [facility]03-02-2023 09:45-0500Body jmmohq144.96 cmMattlucy Valentine Other [facility] [employer] Other 03-02-2023 09:45-0500Body mass index (BMI) [Ratio] 26.32 kg/g1Iaoyoeokaren Valentine Other [facility] [employer] Other 03-02-2023 09:45-0500Body kmiuyliwycc74.2 [degF] Margarito Valentine Other [facility] [employer] Other 03-02-2023 09:45-0500Body fxegat27.99 kgMattlucy Valentine Other [employer] Other 03-02-2023 09:45-0500Diastolic blood doofxrzs42 mm[Hg] Margarito Valentine Other [facility] [employer] Other 03-02-2023 09:45-0274BeD7% (BldA) [Mass fraction]97 % Margarito Valentine Other noh [employer] Other 03-02-2023 09:45-0500Systolic blood xaqtqvmi320 mm[Hg] Margarito Valentine Other [place] [employer] Other 02-08-2023 07:34-0500Body xtucacczqsd96.9 [degF]MD Stanley Emerson Work Phone: 1(103)134-[address] [place], [place] 6611802-08-2023 07:34-0500 Diastolic blood fgezdbmc04 mm[Hg]MD Stanley Emerson Work Phone: 1(391)298-[address] [place], [place] 6611802-08-2023 07:34-0500 Heart rate87 /minMD Stanley Emerson Work Phone: 1(095)[address] [place], [place] 4975202-08-2023 07:34-0500 Respiratory rate18 /minMD Stanley Emerson Work Phone: 1(432)[address] [place], [place] 4975202-08-2023 07:34-0500 SaO2% (BldA) [Mass fraction]94 %MD Stanley Emerson Work Phone: 1(432)920-[address] [place], [place] 6611802-08-2023 07:34-0500 Systolic blood ipwsgner933 mm[Hg]MD Stanley Emerson Work Phone: 1(658)014-[address] [place], [place] 6611802-08-2023 05:46-0500 Body kgMD Stanley Emerson Work Phone: 1(617)[facility] [place], [place] 6611802-07-2023 16:27-0500 Inhaled oxygen flow rate6 L/minMD Stanley Emerson Work Phone: 1(428)[facility] [place], [place] 6611802-07-2023 10:06-0500 Body pnesch165.42 cmMD Stanley Emerson Work Phone: 1(675)[address] [place], [place] 4975202-07-2023 10:06-0500 Body mass index (BMI) [Ratio]27.3 kg/m2MD Stanley Emerson Work Phone: 1(018)214-[address] [place], [place] 6611801-25-2023 10:00-0500 Body zhtjui595.96 cmMakaren Valentine Other [place] [employer] Other 01-25-2023 10:00-0500Body mass index (BMI) [Ratio] 26.32 kg/p1KnqdixvMargarito Valentine Other [place] [employer] Other 01-25-2023 10:00-0500Body zgmzdzakzjl94.8 [degF] Margarito Valentine Other [place] [employer] Other 01-25-2023 10:00-0500Body nmekqk51.99 kgMattlucy Valentine Other [place] [employer] Other 01-25-2023 10:00-0500Diastolic blood ypfpvxjs39 mm[Hg] Margarito Valentine Other [place] [employer] Other 01-25-2023 10:00-4678YdF8% (BldA) [Mass fraction]95 % Margarito Valentine Other [place] [employer] Other 01-25-2023 10:00-0500Systolic blood oeebjjkq329 mm[Hg] Margarito Valentine Other [place] [employer] Other 01-18-2023 13:07-0500Body phfuqu785.96 cmMD Stanley Hemeyer Work Phone: [facility]01-18-2023 13:07-0500 Body .44 kgMD Edludy Hemeyer Work Phone: [facility]01-12-2023 12:00-0500 Body ziktyx288.96 cmMattlucy Valentine Other [facility] [employer] Other 01-12-2023 12:00-0500Body mass index (BMI) [Ratio] 26.32 kg/l5LyofvxxMargarito Valentine Other [place] [employer] Other 01-12-2023 12:00-0500Body .2 [degF] Margarito Valentine Other [place] [employer] Other 01-12-2023 12:00-0500Body .99 kgMattlucy Valentine Other [place] [employer] Other 01-12-2023 12:00-0500Diastolic blood zpdaatbh96 mm[Hg] Margarito Valentine Other [place] [employer] Other 01-12-2023 12:00-9699SqA5% (BldA) [Mass fraction]98 % Margarito Valentine Other [place] [employer] Other 01-12-2023 12:00-0500Systolic blood ewftblbi918 mm[Hg] Margarito Valentine Other [place] [employer] Other 01-10-2023 12:00-0500Body nsxoob237.96 Magen Griffin Other [place] [employer] Other 01-10-2023 12:00-0500Body mass index (BMI) [Ratio] 26.42 kg/m2Celia Griffin Other [place] [employer] Other 01-10-2023 12:00-0500Body ujmpdlpqllt78.6 [degF]Celia Griffin Other [place] [employer] Other 01-10-2023 12:00-0500Body wkiomw93.35 kgCelia Griffin Other [place] [employer] Other 01-10-2023 12:00-0500Diastolic blood tpvwsges26 mm[Hg] Celia Griffin Other [place] [employer] Other 01-10-2023 12:00-0500Respiratory rate20 /minCelia Griffin Other [place] [employer] Other 01-10-2023 12:00-6268EeX6% (BldA) [Mass fraction]98 % Celia Griffin Other [place] [employer] Other 01-10-2023 12:00-0500Systolic blood usmdmwch524 mm[Hg] Celia Griffin Other [place] [employer] Other 01-09-2023 15:38-0500Body idfmcn513.96 cmEdludy Emerson Work Phone: [phone]-Kjmiz [facility] 250 DO Work Phone: 1(753) 566-615901-09-2023 15:38-0500Body mass index (BMI) [Ratio] 26.45 kg/i5OcccwpStanley Emerson Work Phone: [phone]-Fipgi [facility] 250 DO Work Phone: 1(390) 399-118901-09-2023 15:38-0500Body surface area Derived from formula2.2 v4KisaqkStanley Emerson Work Phone: [phone]-Uiuau [facility] 250 DO Work Phone: 1(649) 520-141601-09-2023 15:38-0500Body wqhsoz54.44 kgStanley Emerson Work Phone: 1(825) [phone]-Cjqke [facility] 250 DO Work Phone: 1(168) 699-518701-09-2023 15:38-0500Diastolic blood zzgymamj87 mm[Hg] Stanley Emerson Work Phone: 1(596) [phone]-Lzvkk [facility] 250 DO Work Phone: 1(185) 928-869301-09-2023 15:38-0500Heart rate71 /minEdludy Emerson Work Phone: 1(591) [phone]-Uillk [facility] DO Work Phone: 1(124) 876-333901-09-2023 15:38-0500Systolic blood pxspnlaz339 mm[Hg] Stanley Emerson Work Phone: 1(254) [phone]-Lkjjh [facility] DO Work Phone: 1(651) 978-574812-28-2022 11:53-0500Body lmywxqmuxlj88.8 [degF]MD Stanley Emerson Work Phone: 1(929)270-[address] [place], [place] 6611812-28-2022 11:53-0500 Diastolic blood mm[Hg]MD Stanley Emerson Work Phone: 1(836)339-[address] [place], [place] 6611812-28-2022 11:53-0500 Heart rate78 /minMD Stanley Emerson Work Phone: 1(573)183-[address] [place], [place] 6611812-28-2022 11:53-0500 Respiratory rate16 /minMD Stanley Emerson Work Phone: 1(008)427-[address] [place], [place] 6611812-28-2022 11:53-0500 SaO2% (BldA) [Mass fraction]97 %MD Stanley Emerson Work Phone: 1(291)213-[address] [place], [place] 6611812-28-2022 11:53-0500 Systolic blood aarkrert070 mm[Hg]MD Stanley Emerson Work Phone: 1(694)719-[address] [place], [place] 6611812-28-2022 06:02-0500 Body .8 kgMD Stanley Emerson Work Phone: [facility]12-27-2022 11:48-0500 63 1Eharmony Emerson Work Phone: 1(107) [phone]-Wzdxo [facility] DO Work Phone: Comment on above:[id number] 12:08-0500Body .96 cmMD Stanley Emerson Work Phone: [facility] Encounters Encounter DateEncounter TypeCare ProviderFacilityStart: 03-31-2025 End: 27-74-1434acusxhbzhwFxzfpm X OrzechFacility:FTMCStart: 03-31-2025 End: 47-58-6065trogthkpjpCapyvu X OrzechFacility:[place] BellevueStart: 03-31-2025 End: 19-61-8004Eovyhne encounter procedureAurora X Orzech [facility] start: 03-29-2025 End: 49-72-0911Tnrzeg outpatient visit 25 minutesTeo Al MD Work Phone: 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; S/P PTCA (percutaneous transluminal coronary angioplasty); Essential hypertension; Dyslipidemia; Stage 3b chronic kidney disease (Multi); Transient cerebral ischemia, unspecified type; Former smoker; Body mass index (BMI) 25.0-25.9, adult; HyperthyroidismStart: 03-29-2025 End: 40-09-4822scddnwuponFRYYJQ M IBRAHIMTri[facility] AmbulatoryStart: 03-22-2025 End: 07-36-1040Rxbfmzafw Result EncounterGeneric External Data ProviderNOMS External Department UnsolicitedStart: 03-22-2025 End: 24-03-2404Ixfxurwal Result EncounterGeneric External Data ProviderNOMS External Department UnsolicitedStart: 03-18-2025 End: 61-31-3028Ykmpydkta Result EncounterGeneric External Data ProviderNOMS External Department UnsolicitedStart: 03-18-2025 End: 68-65-9309Qqhrjjbeb Result EncounterGeneric External Data ProviderNOMS External Department UnsolicitedStart: 03-10-2025 End: 90-45-7137dzjbnloemyYnfaoh X OrzechFacility:EU evueStart: 03-10-2025 End: 68-97-5857Seonfoz encounter procedureAurora X Orzech [facility] start: 03-09-2025 End: 93-68-5515dijdkfyiihCfspco J Hemeyer MD Work Phone: [facility] Work Phone: Start: 03-09-2025 End: 23-46-9115Onqgjsv encounter procedureCelia Griffin MD-[facility] Work Phone: Start: 02-28-2025 End: 91-85-0324Hdasqsxuk Result EncounterGeneric External Data ProviderNOMS External Department UnsolicitedStart: 02-28-2025 End: 28-81-2730Yvciuewmg Result EncounterGeneric External Data ProviderNOMS External Department UnsolicitedStart: 63-94-2985Nbb-patient / Non-visitCelia Griffin MD-[facility] Work Phone: Start: 02-10-2025 End: 57-08-6870aussdztomcMzrtak X OrzechFacility:EU ueStart: 02-10-2025 End: 48-15-1887Lyuxjhl encounter procedureAurora X Orzech [facility] start: 02-02-2025 End: 03-48-0204Tftilfmpi Result EncounterGeneric External Data ProviderNOMS External Department UnsolicitedStart: 02-02-2025 End: 26-47-7147Mrmgdvlhk Result EncounterGeneric External Data ProviderNOMS External Department UnsolicitedStart: 56-38-5068ocxxwzdzfnWyulda Tanna Facility:EU [place]Start: 01-12-2025 End: 79-42-0706vcpkzxrsifCbhabe TannaFacility:EU BellevueStart: 01-12-2025 End: 30-35-8565Qhgskdr encounter procedureEboni Anderson [facility] start: 12-14-2024 End: 51-73-0871xyxzpufgsbPvpmky TannaFacility:EU BellevueStart: 12-14-2024 End: 33-33-7674Pwtsdnp encounter procedureEboni Anderson [facility] start: 11-16-2024 End: 08-87-7194pbqbzwdokzYhdqctd R WATERSFacility:FTMCStart: 11-16-2024 End: 70-75-1501Wxz Drop offPatrick R SAMUELS [facility] Start: 11-16-2024 End: 65-19-1660fjzdlolhhhAwtxhlr R WATERSFacility:EU [place]kyStart: 11-16-2024 End: 74-51-3785Gctskjx encounter procedurePatrick R SAMUELS [facility] Start: 11-09-2024 End: 26-46-9394Dbwxcz flowsEdward Emerson MD Work Phone: NOMS CI FM 100Start: 11-09-2024 End: 78-52-1691Bofvwy flowsEdward Emerson MD Work Phone: NOMS CI FM 100Start: 11-09-2024 End: 40-41-8004Xedmxc outpatient visit 25 minutesEdludy Emerson MD Work Phone: NOMS CI FM 100Comment on above:Venous insufficiency of both lower extremities (Primary Dx); Venous stasis dermatitis of right lower extremity; 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 disturbance, psychotic disturbance, mood disturbance, or anxiety (HCC)Start: 11-09-2024 End: 18-09-1335vavvnsjgbaXTQDUO J HEMEYERNot AvailableStart: 11-03-2024 End: 22-61-8941soiyrstkmpTzopty J Hemeyer MD Work Phone: [facility] Work Phone: Start: 11-03-2024 End: 49-72-0221Exmrard encounter procedureEdludy Emerson MD Work Phone: [facility] Work Phone: Start: 11-02-2024 End: 68-66-9748zoiczbmbziQT-Quynh OMALLEYFacility:EU BellevueStart: 11-02-2024 End: 30-53-4254Qhmjdis encounter procedureHEATHER OMALLEY [facility] Eva start: 10-27-2024 End: 95-17-4831Tsrjeboeh Result EncounterGeneric External Data ProviderNOMS External Department UnsolicitedStart: 10-27-2024 End: 61-99-2727Ezadfheso Result EncounterGeneric External Data ProviderNOMS External Department UnsolicitedStart: 89-09-9962Swr-patient / Non-visitEdludy Emerson MD Work Phone: [facility]Prov[facility] Work Phone: Start: 10-14-2024 End: 20-79-4339Kfysjrqynrad care manage srvc 14 day dischargeEdludy Emerson MD Work Phone: NOMS CI FM 100Comment on above:Pneumonia of left lower lobe due to infectious organism; Encounter for examination following treatment at hospital; Lower extremity edema; Delirium due to another medical conditionStart: 10-14-2024 End: 16-04-1479kdnaeyrwllJFKISA J HEMEYERNot AvailableStart: 10-13-2024 End: 66-90-6932Emncmp OnlyStanley Emerson MD Work Phone: NOMS CI 100Comment on above:Peripheral vascular disease (CMS/HCC) (Primary Dx); Presence of stent in arteryStart: 12-34-1755Xbunwehpsic arrhythmiaTeo Al MD Work Phone: [facility] Work Phone: Start: 79-70-4134Wsg-patient / Non-visitEdludy Emerson MD Work Phone: [facility] Work Phone: Start: 88-09-7692owcbidghmzHHGOWayne HealthCare Main Campustart: 45-52-9677Uoxirplzb for preprocedural cardiovascular examinationTERENCEOhioHealth Mansfield Hospital Start: 10-11-2024 End: 51-64-3405Eiuwwwftd to same day surgery Cyndi Emerson MD Work Phone: [facility]-Interventional Radiology Work Phone: Start: 10-11-2024 End: 81-87-1363pncdcwcbwzElrtkv J HemeyerFacility:[facility] Springfieldtart: 10-08-2024 End: 70-12-9021ScaqskkyhhtczghAlto J Quan MD Work Phone: [facility] Work Phone: Start: 10-08-2024 End: 04-03-5866Tixbeu consultation new/estab patient 78 Tevin Montana MD Work Phone: [facility] SystemComment on above: Cardiomyopathy, ischemic (Primary Dx); Encounter [...] Pre-operative cardiovascular examination, supraventricular arrhythmiaStart: 10-08-2024 End: 97-12-4542Ekbbbgw encounter statusRuby Montana MD Work Phone: [facility] Work Phone: Start: 10-08-2024 End: 39-22-0957Vgaitwyohpdpalpy arrhythmiaRuby Montana MD Work Phone: [facility] Work Phone: Start: 10-08-2024 End: 44-48-5469Sfkblarmyge arrhythmiaRuby Montana MD Work Phone: [facility] Work Phone: Start: 10-08-2024 End: 28-49-9981fgokzvyozcRXNXSibley Memorial Hospital AmbulatoryStart: 10-08-2024 End: 59-66-9959Cfqjbnuvh for preprocedural cardiovascular examinationChildren's National Medical Center AmbulatoryStart: 10-05-2024 End: 99-65-4888gknjphoebxIhvhonn R WATERSFacility:EU [place]kyStart: 10-05-2024 End: 14-93-3022Upamsid encounter procedureKatia SAMUELS [facility] Dominic Start: 10-04-2024 End: 73-94-9245Fmpmqowzsx and management of inpatientPuneet Hubert CASILLAS Work Phone: [facility] Vascular LabComment on above: ArrivedStart: 10-02-2024 End: 64-07-3067Etfdjxgmz Result EncounterGeneric External Data ProviderNOMS External Department UnsolicitedStart: 10-02-2024 End: 58-45-6826Ejaoilejo Result EncounterGeneric External Data ProviderNOMS External Department UnsolicitedStart: 10-02-2024 End: 93-89-1514Qwejaqgurg and management of inpatientPuneet Hubert CASILLAS Work Phone: stcz Med SurgComment on above:Lower extremity edema (Primary Dx); Delirium due to another medical condition; Cognitive and behavioral changesStart: 10-01-2024 End: 88-97-8247jcgfxdrqhnVrxsswb [facility] Work Phone: Start: 10-01-2024 End: 06-69-5950Xhnqedyy Elmira Bo MD Work Phone: [facility]-LAB Path Spec [place] HospStart: 18-27-6354syqqhylbxdCnkqnz J HemeyerFacility:[facility] Springfieldtart: 10-01-2024 End: 23-84-2685Eiuakomcb Result EncounterGeneric External Data ProviderNOMS External Department UnsolicitedStart: 10-01-2024 End: 17-22-3544Wsuafdcfr Result EncounterGeneric External Data ProviderNOMS External Department UnsolicitedStart: 09-28-2024 End: 36-91-9640ioopcpuqauKmcokz A [facility] Work Phone: Start: 09-28-2024 End: 23-11-2897Qambdpzk Elmira Bo MD Work Phone: [facility] Path Spec [place] HospStart: 09-28-2024 End: 13-44-9224Lidmzmshn Result EncounterGeneric External Data ProviderNOMS External Department UnsolicitedStart: 09-28-2024 End: 11-82-1111Wrlsnolop Result EncounterGeneric External Data ProviderNOMS External Department UnsolicitedStart: 09-23-2024 End: 45-46-4666Qaltnux encounter procedureF[facility] Work Phone: Start: 09-23-2024 End: 72-24-6269scxsyojowgRckada J HemeyerCoshocton [facility] Center Work Phone: Start: 09-21-2024 End: 31-21-6550Ukdssj outpatient visit 25 minutesStanley Emerson MD Work Phone: noMS CI FM 100Comment on above: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 disturbance, psychotic disturbance, mood disturbance, or anxiety (CMS/HCC); Hallucinations; Need for prophylaxis against urinary tract infection; Indwelling urinary catheter present; Former smoker; Polypharmacy; OverweightStart: 09-21-2024 End: 61-65-6355Dvmcgkangelic Emerson MD Work Phone: noms CI FM 100Start: 09-21-2024 End: 27-10-7126Mbfyqvangelic Emerson MD Work Phone: noms CI FM 100Start: 09-21-2024 End: 72-70-0846iccdlcydsbVGUQGV J HEMEYERHannibal Regional Hospital AvailableStart: 09-10-2024 End: 21-28-3762Kcdjvr outpatient visit 25 minutesTeo Al MD Work Phone: [facility] HospitalComment on above:Cardiomyopathy, ischemic; 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; S/P PTCA (percutaneous transluminal coronary angioplasty); ST elevation myocardial infarction (STEMI), unspecified artery (Multi); Paroxysmal atrial fibrillation (Multi); High risk medication use; Essential hypertension; Abdominal aortic aneurysm (AAA) greater than 5.5 cm in diameter in male; Dyslipidemia; Stage 3a chronic kidney disease (Multi); Former smoker; BMI 26.0-26.9,adultStart: 09-10-2024 End: 95-99-3751rpshmobfmkFAHBDD M [facility] AmbulatoryStart: 09-09-2024 End: 41-65-0898lwocymjwwnGftegt J GaleaFacility:EU BellevueStart: 09-02-2024 End: 93-78-2880Cnzswtjvd Result EncounterGeneric External Data ProviderNOMS External Department UnsolicitedStart: 09-02-2024 End: 63-55-2868Gxxzmzdwj Result EncounterGeneric External Data ProviderNOMS External Department UnsolicitedStart: 08-23-2024 End: 97-35-3808Wnlgemhjy Result EncounterGeneric External Data ProviderNOMS External Department UnsolicitedStart: 08-23-2024 End: 61-64-2690Ieobbvkzm Result EncounterGeneric External Data ProviderNOMS External Department UnsolicitedStart: 08-12-2024 End: 21-02-5354hocgqlotyyYI-C HEATHER OMALLEYFacility:EU BellevueStart: 08-11-2024 End: 34-27-9618odcpmlmiloGyqegl J Hemeyer MD Work Phone: [facility] Work Phone: Start: 08-11-2024 End: 13-11-1816Pfzglan encounter procedureEdludy Emerson MD Work Phone: [facility] GroupLafayette [facility] Work Phone: Start: 08-06-2024 End: 67-83-4563Wjlortmuzy hospital visit by oHng Alfaro Echo/[facility] 2[facility] CenterComharper [facility] on above:ST elevation myocardial infarction (STEMI), unspecified artery (Multi); Cardiomyopathy, ischemic; 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; S/P PTCA (percutaneous transluminal coronary angioplasty)Start: 08-06-2024 End: 99-64-3588xxogdkuumnMTXQSA M [facility] Centertart: 48-50-9796Clg-patient / Non-visitEdludy Emerson MD Work Phone: [facility] GroupProvidence [facility] Professional Co Work Phone: Start: 07-29-2024 End: 65-34-5939aijlcwjfriGcfpslt R WATERSFacility:FTMCStart: 07-29-2024 End: 01-04-7478zojzbmtvisAulczlg R WATERSFacility:UZMA HermosillouskyStart: 07-29-2024 End: 19-15-6460Duakzr outpatient visit 40 minutesTeo Al MD Work Phone: [facility] on above:Cardiomyopathy, ischemic (Primary Dx); 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; Paroxysmal atrial fibrillation (Multi); High risk medication use; S/P PTCA (percutaneous transluminal coronary angioplasty); ST elevation myocardial infarction (STEMI), unspecified artery (Multi); Infrarenal abdominal aortic aneurysm (AAA) without rupture (CMS-HCC); Essential hypertension; Dyslipidemia; Stage 3a chronic kidney disease (Multi); Transient cerebral ischemia, unspecified type; Hematuria, unspecified type; Hyperthyroidism; BMI 26.0-26.9,adult; Former smokerStart: 07-29-2024 End: 72-28-7606uyncmkkhlqCXTPGJ M [facility] AmbulatoryStart: 07-23-2024 End: 40-68-1234Mtyoyvqsi Result EncounterGeneric External Data ProviderNOMS External Department UnsolicitedStart: 07-23-2024 End: 68-47-5937Vyjkaadiy Result EncounterGeneric External Data ProviderNOMS External Department UnsolicitedStart: 07-15-2024 End: 21-88-9167mlmabhloylUZ-C JENNIFER E PERRYFacility:EU BellevueStart: 07-15-2024 End: 04-04-5409Xqnvsyx encounter procedureHEATHER OMALLEY [facility] start: 07-13-2024 End: 76-59-8597Dupifupta Result EncounterGeneric External Data ProviderNOMS External Department UnsolicitedStart: 07-13-2024 End: 88-68-5957Gntzplwew Result EncounterGeneric External Data ProviderNOMS External Department UnsolicitedStart: 06-29-2024 End: 11-25-8215Chzjalkks Result EncounterSluh Sequeira MD Work Phone: noms External Department UnsolicitedStart: 06-29-2024 End: 25-43-1553Ayjehvgdi Result EncounterSluh Sequeira MD Work Phone: noms External Department UnsolicitedStart: 06-25-2024 End: 70-46-4311Djsfuzebh Result EncounterGeneric External Data ProviderNOMS External Department UnsolicitedStart: 06-25-2024 End: 43-95-7509Pmxgayyhz Result EncounterGeneric External Data ProviderNOMS External Department UnsolicitedStart: 06-22-2024 End: 82-41-9714Eoxkgsajz encounterEdludy Emerson MD Work Phone: NOQR CI FM 100Start: 06-01-2024 End: 74-64-8989jzewjqcwmuSyxwnt X OrzechFacility:EU [place]kyStart: 06-01-2024 End: 49-09-9276Xoymsse encounter procedureAurora X Orzech [facility] Start: 05-25-2024 End: 43-11-1067Yypqbaqwn Result EncounterGeneric External Data ProviderNOMS External Department UnsolicitedStart: 05-25-2024 End: 89-92-7303Urlzibesl Result EncounterGeneric External Data ProviderNOMS External Department UnsolicitedStart: 05-21-2024 End: 58-53-9547LgbqpbNfyndk J Hemeyer MD Work Phone: noms S FMComment on above:Simple chronic bronchitis (CMS/HCC)Start: 05-21-2024 End: 79-08-4440Kfnwlau encounter procedureStanley Emerson MD Work Phone: [facility] Main [place] Work Phone: Start: 05-21-2024 End: 58-98-6782Txwmrn outpatient visit 25 minutesTeo Al MD Work Phone: uh FirelandsComment on above:Paroxysmal atrial fibrillation (Multi); High risk medication use; 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; S/P PTCA (percutaneous transluminal coronary angioplasty); ST elevation myocardial infarction (STEMI), unspecified artery (Multi); Cardiomyopathy, ischemic; Essential hypertension; Dyslipidemia; Abdominal aortic aneurysm (AAA) greater than 5.5 cm in diameter in male (CMS-HCC); Transient cerebral ischemia, unspecified type; Stage 3a chronic kidney disease (Multi); BMI 26.0-26.9,adult; Former smokerStart: 05-21-2024 End: 58-25-5381gowrsonrlcQuricr [facility] Research Institutecility:[facility] Springfieldtart: 05-13-2024 End: 71-82-9560Lgighrk encounter procedureEdludy Emerson MD Work Phone: NOMS CI FM 100Comment on above:Encounter for Medicare annual wellness exam (Primary Dx); Advance directive discussed with patient; Encounter for screening for other disorder; Screening for alcohol problem; Former smoker; OverweightStart: 05-13-2024 End: 56-31-6922ugdxwuvafrQWZQLZ J HEMEYERNot AvailableStart: 05-13-2024 End: 52-62-8803Lnzbai flowsheetStanley Emerson MD Work Phone: [facility] CI FM 100Start: 05-13-2024 End: 30-92-3528Pqxtso Reji Emerson MD Work Phone: [facility] CI FM 100Start: 05-10-2024 End: 45-75-2940Bcbgiw Reji Emerson MD Work Phone: [facility] CI FM 100Start: 05-10-2024 End: 14-31-8639Ozwmqx flowsEdward Emerson MD Work Phone: [facility] CI FM 100Start: 05-10-2024 End: 33-49-4275Irqjww outpatient visit 40 minutesEdludy Emerson MD Work Phone: NOMS CI FM 100Comment on above:Essential hypertension, benign (CMS/HCC); Hypertensive nephropathy (CMS/HCC); Stage 3a chronic kidney disease (HCC) (CMS/HCC); Microalbuminuria; Panlobular emphysema (CMS/HCC); Simple chronic bronchitis (CMS/HCC); Mixed dyslipidemia (CMS/HCC); Polypharmacy; Mixed conductive and sensorineural hearing loss of both ears; Former smoker; OverweightStart: 05-10-2024 End: 36-99-4485iaidfdzaicLROHOH J HEMEYERNot AvailableStart: 05-06-2024 ambulatoryAlyskhoi Rich GaleaFacility:EU BellevueStart: 05-05-2024 End: 51-83-9050aqhwijhldoXuytiy Layla GaleaFacility:EU [place]uskyStart: 04-28-2024 End: 16-07-7724Qmcxpejhl Result EncounterGeneric External Data ProviderNOMS External Department UnsolicitedStart: 04-28-2024 End: 59-41-4907Mtjznawuq Result EncounterGeneric External Data ProviderNOMS External Department UnsolicitedStart: 04-26-2024 End: 61-40-2114Ehnmwdyme Result EncounterGeneric External Data ProviderNOMS External Department UnsolicitedStart: 04-26-2024 End: 61-96-8698Rgiibbwsn Result EncounterGeneric External Data ProviderNOMS External Department UnsolicitedStart: 04-06-2024 End: 71-90-8352izwfjfofdwUmxkzpd R WATERSFacility:FTMCStart: 04-06-2024 End: 17-84-3306Kac Drop offKatia SAMUELS [facility] Start: 04-06-2024 End: 94-61-1929ddzwmcqgypVftjrtw R WATERSFacility:EU [place]kyStart: 04-06-2024 End: 81-05-2882Nbkvqoz encounter procedureKatia SAMUELS [facility] [place] Start: 03-31-2024 End: 08-47-1815Qfgwwvulp Result EncounterGeneric External Data ProviderNOMS External Department UnsolicitedStart: 03-31-2024 End: 80-28-0795Nsoasjsah Result EncounterGeneric External Data ProviderNOMS External Department UnsolicitedStart: 03-24-2024 End: 25-80-8728Hgnfdgtkk Result EncounterGeneric External Data ProviderNOMS External Department UnsolicitedStart: 03-24-2024 End: 00-92-1083Gpctsgwnt Result EncounterGeneric External Data ProviderNOMS External Department UnsolicitedStart: 03-23-2024 End: 56-01-4803Ohacpfdom Result EncounterGeneric External Data ProviderNOMS External Department UnsolicitedStart: 03-23-2024 End: 51-88-8603Dzncgrmal Result EncounterGeneric External Data ProviderNOMS External Department UnsolicitedStart: 03-18-2024 End: 57-79-9688Kfxmgj flowsEdward Emerson MD Work Phone: [facility] CI FM 100Start: 03-18-2024 End: 73-03-8937Jwhjyi flowsEdward Emerson MD Work Phone: NOM[facility] CI FM 100Start: 03-18-2024 End: 47-08-4127Rtwurd outpatient visit 15 minutesEdludy Emerson MD Work Phone: NOMS CI FM 100Comment on above:Pneumonia of right lower lobe due to infectious organismStart: 03-18-2024 End: 37-08-0219fszjnjkltdPQAJHR J HEMEYERNot AvailableStart: 03-08-2024 End: 80-61-7558Wvmwyqz encounter procedureMD Stanley Emerson Work Phone: [facility] Tom Work Phone: Start: 03-08-2024 End: 11-48-2407kwhwpuzhkhXP Stanley Emerson Work Phone: [facility] Work Phone: Start: 03-04-2024 End: 45-34-1830Ybfjlhrir Result EncounterGeneric External Data ProviderNOMS External Department UnsolicitedStart: 03-04-2024 End: 87-06-9215Ypssmkzsw Result EncounterGeneric External Data ProviderNOMS External Department UnsolicitedStart: 03-02-2024 End: 51-72-7284vbpqwaemcoHkgafp X OrzechFacility:EU [place]vueStart: 03-02-2024 End: 17-26-6414Gdtobvl encounter procedureAurora X Orzech [facility] [place] start: 02-24-2024 End: 50-11-5680Rzhobrsxiizy / ancillary services managementArnot Ogden Medical CenterComment on above:Paroxysmal atrial fibrillation (Multi)Start: 02-17-2024 End: 62-42-7074jzwfhjeqdbJWMEVF J HEMEYERNot AvailableStart: 02-17-2024 End: 73-10-3095Dbhbvj outpatient visit 15 minutesStanley Emerson MD Work Phone: NOMS CI FM 100Comment on above:Pneumonia of left lower lobe due to infectious organism (Primary Dx); Simple chronic bronchitis (CMS/HCC)Start: 02-10-2024 End: 44-27-2392Wnrfbx outpatient visit 40 minutesTeo Al MD Work Phone: [facility]Comment on above: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 (Pr imary Dx); Paroxysmal atrial fibrillation (Multi); High risk medication use; S/P PTCA (percutaneous transluminal coronary angioplasty); Cardiomyopathy, ischemic; ST elevation myocardial infarction (STEMI), unspecified artery (Multi); Dyslipidemia; Stage 3a chronic kidney disease (Multi); Transient cerebral ischemia, unspecified type; BMI 26.0-26.9,adult; Former smoker; QT prolongationStart: 02-04-2024 End: 78-56-4028bfomhnkwpbBM Edward J Hemeyer Work Phone: [facility] Work Phone: Start: 02-04-2024 End: 77-76-5106Tqhdrjm encounter procedureMD Stanley Emerson Work Phone: [facility] Nephrology Dominic Work Phone: Start: 01-29-2024 End: 67-49-9977uewwigrpybPRFXKL J HEMEYERNot AvailableStart: 49-83-3200Ohn- patient / Non-visitMD Stanley Emerson Work Phone: [facility] Work Phone: Start: 87-86-8243psrqubztnrLbmxrk X OrzechFacility:EU BellevueStart: 82-58-4119Rqd-patient / Non-visitMD Edludy Emerson Work Phone: [facility] Work Phone: Start: 74-87-4050Mzv-patient / Non-visitMD Edludy Emerson Work Phone: [facility] Work Phone: Start: 01-16-2024 End: 71-32-3338Fcujdmulzk and management of inpatientMD Edludy Emerson Work Phone: [facility] [place] [facility] Work Phone: Start: 33-70-1787Tqb-patient / Non-visitMD Stanley Emerson Work Phone: [facility] Work Phone: Start: 01-14-2024 End: 93-03-6869Fvjlzqtox to same day surgery centerMD Stanley Emerson Work Phone: [facility]-Dig[facility] Work Phone: Start: 01-14-2024 End: 16-03-0929xzdxoregwdEQ Stanley Emerson Work Phone: [facility] Work Phone: Start: 12-26-2023 End: 53-54-2875Iefhzbl encounter procedureMD Edludy Emerson Work Phone: [facility]start: 12-26-2023 End: 64-67-2480kijhdautmoJY Stanley Emerson Work Phone: [facility] Work Phone: Start: 12-25-2023 End: 61-03-5153odvqhegoppUsmdck J GaleaFacility:EU BellevueStart: 12-25-2023 End: 29-61-1094Sjfesbo encounter procedureAlysha Layla Gomez [facility] start: 11-19-2023 End: 46-87-7079zkhfkxebixYSXLQH J IDANIANot AvailableStart: 11-04-2023 End: 69-31-6511Llaabhr encounter procedureAurora X Elvi [facility] start: 10-22-2023 End: 57-51-7548chuqdtjqpgBN Stanley Emerson Work Phone: [facility] Work Phone: Start: 10-22-2023 End: 57-83-2326Hedknem encounter procedureMD Stanley Emerson Work Phone: [facility] Nephrology Work Phone: Start: 98-74-8771Evf-patient / Non-visitMD Peteludy Emerson Work Phone: [facility] Work Phone: Start: 10-07-2023 End: 61-04-2433Gthhbwv encounter procedureKatia SAMUELS [facility] Start: 10-03-2023 End: 95-08-4539Ahu Drop offKatia SAMUELS [facility] Start: 10-03-2023 End: 05-72-8653Mtzbywb encounter procedurePatriczahida SAMUELS [facility] Start: 23-86-5802Pqs-patient / Non-visitMD Stanley Emerson Work Phone: [facility] Nephrology Work Phone: Start: 85-28-1547HkwnnkxickvmwmpAN Edludy Hemeyer Work Phone: [facility] 09-18-2023 End: 41-73-9110vwfszphelvMC Edludy J Hemeyer Work Phone: [facility] Work Phone: Start: 09-18-2023 End: 82-36-7571Bwdenny encounter procedureMD Edludy Hemeyer Work Phone: [facility] Vascular Surgery Work Phone: Start: 09-11-2023 End: 64-45-3168Tvdzptl encounter procedurePatamara SAMUELS [facility] Start: 08-18-2023 End: 43-61-0121kbruhoojcwUB Edludy J Hemeyer Work Phone: [facility] Work Phone: Start: 08-18-2023 End: 55-42-2420Xeoujhj encounter procedureMD Edludy Hemeyer Work Phone: [facility]-CT Scan Main [place] Work Phone: Start: 08-15-2023 End: 62-96-0646Nlecomp encounter procedurePatriczahida SAMUELS [facility]niic Start: 07-31-2023 End: 67-88-3033Mrcflatcp Result EncounterGeneric External Data ProviderNOMS External Department UnsolicitedStart: 07-31-2023 End: 44-23-8865Tskyropuc Result EncounterGeneric External Data ProviderNOMS External Department UnsolicitedStart: 06-30-2023 End: 85-19-8479Vyepqal encounter procedurePatricHeyWire Business Isabel [employer] [facility] start: 06-16-2023 End: 55-18-5553Saagdew encounter procedurePatricHeyWire Business Isabel [employer] [facility] start: 06-10-2023 End: 67-51-8534Yvpaxdj encounter procedurePatricHeyWire Business Isabel [employer] [facility] Start: 05-06-2023 End: 67-00-6637nmfthkudirMohl Bakcatherines Other nosambaash [employer] Other Start: 40-86-3099Ymokmecub encounterAzcelestino DanielssFPG NephrologyStart: 04-16-2023 End: 30-30-8172kxmzuspokpRlkg Bakhous Other nosambaash [employer] Other Start: 94-26-3252Qwahwprlk encounterAziz BakcatherinesFPG NephrologyStart: 04-15-2023 End: 51-27-7318wqrevdnsalKimn Bakhous Other [employer] Other Start: 80-03-2308Hjlptp outpatient visit 25 minutes Azcelestino MinG NephrologyStart: 04-08-2023 End: 71-63-5701jtibigyfabBL Stanley Emerson Work Phone: [facility] Work Phone: Start: 04-08-2023 End: 22-01-9367Rygglzn encounter procedureMD Stanley Emerson Work Phone: [facility] 03-11-2023 End: 39-79-0116Vrh Drop offPatrick R [employer] [facility] Start: 03-11-2023 End: 77-35-8346Pwijmto encounter procedurePatrick R [employer] [facility] Start: 14-63-2903Mcjygu outpatient visit 25 minutes Stanley Emerson Work Phone: [phone]-IvcgpSteven [place]ille [address] DO Work Phone: Start: 29-77-3176pcdqzygqjcWtSigrid Al Facility:[id number]: 12-25-2022 End: 85-43-0797Rrijtlh encounter procedurePatrick R [employer] [facility] Start: 12-10-2022 End: 94-59-2190Own Drop offPatrick R [employer] [facility] Start: 12-10-2022 End: 74-15-7914Xrmefsl encounter procedurePatrick R [employer] [facility] Start: 10-04-2022 End: 85-53-1185Sybikgb encounter procedurePatrick R [employer] [facility] [place] Start: 09-18-2022 End: 28-19-8976Rizrcly encounter procedurePatamara SAMUELS [facility] Dominic Start: 09-15-2022 End: 98-57-4199nzxubfwmxrXA EDWARD HEMEYER .Facility:U0Ieomp: 09-12-2022 End: 22-13-2757odmjdvzoyaGW EDWARD HEMEYER .Facility:I1Rsuog: 09-08-2022 Encounter for preprocedural laboratory examinationMem[facility] Hospitalt[facility]: 09-04-2022 End: 41-03-3090mzgqukrrebFC EDLUDY EMERSON .Facility:M6Uiqvs: 09-04-2022 Encounter for preprocedural cardiovascular examinationDR KATIA SAMUELS [facility] 09-02-2022 End: 99-91-8275uyrlefiojpRG EDLUDY HEMECHERY .Facility:G7Ftyit: 09-02-2022 End: 77-15-6242Zoiehifam for preprocedural laboratory examinationDR EDLUDY HEMEYER .Facility:L8Fguxg: 09-02-2022 End: 17-78-3297siugzcbmeuBF EDWARD HEMEYER .Facility:K0Graxh: 09-02-2022 End: 78-66-7956Zzxexsqlp for preprocedural cardiovascular examinationDR EDLUDY HEMEYER .Facility:E0Pmonw: 08-21-2022 End: 49-22-0992bzrnidlhsfXknoap Ruttino Other [facility] [employer] Other Start: 73-36-3376Jwadfy-up encounterJatoya ThomasPG Vascular SurgeryStart: 08-16-2022 End: 56-56-9614wpgfysiluyFK Stanley Emerson Work Phone: [facility] Work Phone: Start: 08-16-2022 End: 39-64-0221Wgdtdvd encounter procedureMD Stanley Emerson Work Phone: [facility]-CT Scan [facility] [place] Work Phone: Start: 07-31-2022 End: 63-40-9682Tsulmou encounter procedurePatriczahida SAMUELS [facility] Start: 07-25-2022 End: 47-03-3073mgsskgqjucAbyrybk [place] Other [employer] Other Start: 77-10-8326Aiksvv follow up visit related to original pxMargarito ValentineFPG Vascular SurgeryStart: 07-24-2022 End: 73-21-3919mjhvoojuzxDX Stanley Emerson Work Phone: [facility] Work Phone: Start: 07-24-2022 End: 43-56-6105Yfcbtam encounter procedureMD Stanley Emerson Work Phone: [facility]-MRI Main [place] Work Phone: Start: 07-02-2022 End: 02-75-0706Qyqkakjucc and management of inpatientMD Stanley Emerson Work Phone: [facility] [place] [facility] Work Phone: Start: 06-21-2022 End: 70-78-1447Knpzghe encounter procedureMD Stanley Emerson Work Phone: [facility] Ktn-Cgt-Xjpdcbbd Testing Work Phone: Start: 06-19-2022 End: 94-05-3630tuzkjxbqpsHycqytq [place] Other [employer] Other Start: 60-34-6187Puofvt outpatient visit 25 minutes Margarito Larry Vascular SurgeryStart: 06-12-2022 End: 07-60-1295xptcbqifmdUA Stanley Rich Idania Work Phone: [facility] Work Phone: Start: 06-12-2022 End: 16-92-1116Xvrbevk encounter procedureMD Stanley Idania Work Phone: [facility]-CT Scan Main [place] Work Phone: Start: 06-11-2022 End: 22-46-4885Egunywr encounter procedureJENNJASON QUINNRY [facility] start: 06-06-2022 End: 24-67-0326yrpimiurenEicfpsr Langenberg Other [facility] [employer] Other Start: 16-11-7798Ginmki outpatient visit 25 minutes Margarito AverySofía Vascular SurgeryStart: 06-04-2022 End: 24-34-9540bodjauiybiGszv Bakhous Other [facility] [employer] Other Start: 94-51-6948Felwpt outpatient visit 25 minutes Celia Acevedo Nephrology ClydeStart: 58-78-9590Gnoikh outpatient visit 25 minutesStanley Emerson Work Phone: [phone]-[facility] 250 DO Work Phone: Start: 24-76-1133igofxvgayxTc. Stanley Emerson Facility:[id number]: 02-47-0924qlmlitwbplVs. Stanley EmersonFacility:9090 Start: 08-95-7756qfesnpfxquTs. Stanley EmersonFacility:9090Start: 97-40-4478lapyoittiyKp. Teo QuilesadanFacility:9090Start: 05-18-20[address] Teo AlFacility:9090Start: 17-27-8723exxglhoxvwYc. Stanley EmersonFacility:9090Start: 81-01-1604CghqazkamvsrhhnGQ Stanley Emerson Work Phone: [facility] HospitalComment on above: Problem List clean-up per request of Phys. EHR CmteStart: 37-06-8728lepxeecann Dr. Teo AlFacility:9090Start: 05-16-2022 End: 22-03-7010Taluimosh for preprocedural cardiovascular examinationMD Stanley Emerson Work Phone: [facility]: 05-16-2022 End: 70-25-1824Yxsslkihdr and management of inpatientMD Stanley Emerson Work Phone: [facility] [place] [facility] Work Phone: Start: 05-16-2022 End: 14-71-2901lgudjcnnerFT STANLEY EMERSON .Facility:P6Nspko: 05-15-2022 End: 74-49-4860oczkznjarcGT STANLEY EMERSON .Facility:D9Gcpno: 01-04-2022 End: 86-46-4871nbyrzjoamtZI STANLEY EMERSON .Facility:U5Mcoczxg encounter status Stanley Emerson Work Phone: [phone]-Hdbxv [facility] 250 DO Work Phone: End: 98-89-4386Ppzlarm encounter statusStanley Emerson Work Phone: [phone]-Qmrei [facility] 250 DO Work Phone: Procedures DateProcedureProcedure DetailPerforming ClinicianStart: 26-50-5861Iyz routine ecg w/least 12 lds w/i&Jackelin Al MD Work Phone: Start: 92-03-6097IR CHEST 2VGeneric External Data ProviderStart: 89-19-4485ZLO BASIC METABOLIC PANELGeneric External Data Provider Start: 83-00-1062FDM LIPID PROFILE (FASTING)Generic External Data ProviderStart: 68-70-9349GEI THYROID STIM HORMONEGeneric External Data ProviderStart: 76-82-4138PIZ ASTGeneric External Data ProviderStart: 77-61-3668DDEH CBC WITH PLATELET NO DIFFERENTIALGeneric External Data ProviderStart: 57-45-5675DIE HEMOGLOBINGeneric External Data ProviderStart: 16-78-5127CztpwvqgqjQrtznkb SAMUELS Start: 14-45-3093UPXH CBC WITH PLATELET NO DIFFERENTIAL Generic External Data ProviderStart: 89-87-7067CC Angiogram w/TLA/Stent Left Leg (Left)Stanley Emerson MD Work Phone: Start: 48-39-5325Ashhb of magnesiumWaqar Pink MD Work Phone: [phone]: 28-76-4474OALNC METABOLIC PANEL W/ REFLEX TO MG FOR LOW KKim Aidee Pink MD Work Phone: [phone]: 41-27-0572Foh routine ecg w/least 12 lds w/i&r Waqar Pink MD Work Phone: Start: 61-53-3280Kpa-scan xtr veins complete bilateral studyTarif Boni CASILLAS Work Phone: Start: 84-93-2273Kmbac centrifuge enhncd id imfluor stain eaWaqar Pink MD Work Phone: [phone]: 81-14-6119IHEEG METABOLIC PANEL W/ REFLEX TO MG FOR LOW KKim S Joesph CASILLAS Work Phone: Start: 36-68-9775Fllpojgfrty timeWaqar Pink MD Work Phone: Start: 72-56-8028Yzgjw of ferritinWaqar Pink MD Work Phone: Start: 08-15-2581FDQPW METABOLIC PANEL W/ REFLEX TO MG FOR LOW KKim Aidee Pink MD Work Phone: Start: 28-86-9566HEEEMAJ B12 & FOLATEWaqar Pink MD Work Phone: Start: 10-02-2024 End: 61-12-9502Tcsdecx bacterial quanttative colony count urineWaqar Pink MD Work Phone: Start: 48-23-5063PVAA CULT,URINEGeneric External Data ProviderStart: 41-81-1292Zpqbs s aureus methicillin resist amp probe tqWaqar Pink MD Work Phone: [phone]: 30-93-1311YNWGCWLQPEN PANEL, MOLECULAR, WITH COVID-19Waqar Pink MD Work Phone: [phone]: 72-53-9057Giydykgj mycoplsmWaqar Pink MD Work Phone: Start: 06-64-0410Rzyhn metabolic panel calcium total Waqar Pink MD Work Phone: Start: 52-04-9614Fycoljnmgng [Units/volume] in Serum or PlasmaRuby Montana MD Work Phone: Start: 87-71-5718UMSHO CULTURE - FRMCGeneric External Data ProviderStart: 05-43-2077Gjhrw Angel Emerson MD Work Phone: Start: 56-34-0894KLKHK CULTURE - FRMCGeneric External Data ProviderStart: 73-66-5434Ktxxb Ezequiel Bo MD Work Phone: Start: 21-75-3909Untqc dip stick/tablet rgnt non-auto w/o micrscpEdludy Emerson MD Work Phone: Start: 37-59-9636Vev routine ecg w/least 12 lds w/i&r Teo Al MD Work Phone: Start: 75-66-0482NMB LIPID PROFILE (FASTING)Generic External Data ProviderStart: 78-52-8142ILU THYROID STIM HORMONEGeneric External Data ProviderStart: 57-35-7890DNBNbobbkt External Data ProviderStart: 07-29-2024 Ecg routine ecg w/least 12 lds w/i&rHignacio Al MD Work Phone: Start: 56-17-7456FFXAhdmeaf External Data Provider Start: 40-88-8779JNW THYROID STIM HORMONEGeneric External Data ProviderStart: 62-52-9361FELVIM PROTHROMBIN TIME INR W/O Garry Sequeira MD Work Phone: Start: 26-51-1520GQDMcbyadn External Data Provider Start: 59-55-2182HUANzcmphw External Data ProviderStart: 87-60-4619Sps routine ecg w/least 12 lds w/i&Jackelin Al MD Work Phone: Start: 86-05-1242GXFLP CULTURE 2Generic External Data ProviderStart: 85-50-3820LTLZX CULTURE 1Generic External Data ProviderStart: 55-43-6209IRIYszzoum External Data ProviderStart: 26-96-3550Rjsuxwst cystoscopy Katia SAMUELS Start: 35-03-3263IKEWfqvpag External Data Provider Start: 56-72-5480UNYJnubbbl External Data ProviderStart: 20-95-9691XN PULMONARY FUNCTION TESTGeneric External Data ProviderStart: 63-33-8285XOM HEMOGLOBIN Generic External Data ProviderStart: 29-43-7163Zzhll Strep (POC)MD Stanley Emerson Work Phone: Start: 00-79-1280Cbshu chest X-rayMD Stanley Emerson Work Phone: Start: 36-75-6462PJL HEMOGLOBINGeneric External Data ProviderStart: 84-31-4265Bfc routine ecg w/least 12 lds w/i&Jackelin Al MD Work Phone: Start: 84-75-0580Fqlhmupi identified in Urine by CultureMD Stanley Emerson Work Phone: Start: 52-12-2684Zqqbt cultureMD Stanley Emerson Work Phone: Start: 13-35-6824Ixjricer identified in Urine by CultureMD Stanley Emerson Work Phone: Start: 18-46-7538Xgeny cultureMD Stanley Emerson Work Phone: Start: 82-64-5688Wsbov chest X-rayMD Stanley Emerson Work Phone: Start: 92-00-6753PK Iliac/Fem w/LHCMD Stanley Emerson Work Phone: Start: 18-19-5761TI LHC & COR AngioMD Stanley Emerson Work Phone: Start: 34-41-5377NU PCI AMI 1st Vessel LAD DESMD Stanley Emerson Work Phone: Start: 91-39-4018JoojlezqvjaTF Stanley Emerson Work Phone: Start: 04-97-8517Twzbmqlw cystoscopyVoltzahida [employer] Start: 94-67-7270KT of abdomen and pelvis without contrastMD Stanley Emerson Work Phone: Start: 29-75-6736Vmp-scan xtr veins unilateral/limited studyGeneric External Data ProviderStart: 06-47-0940Wlduimiihv, device (physical object)Katia SAMUELS Start: 02-81-4064Crgnvlidusjtu resection of bladder neoplasmBaptist Health La Grangezahida [employer] Start: 72-59-0652Jlxbduov tomography angiography of abdominal and/or pelvic blood vesselMD Stanley Emerson Work Phone: Start: 98-77-8415RiugifqrwpPsyxumx [employer] Start: 33-75-0906Anktphgzbfru repair of abdominal aortic aneurysmMD Stanley Emerson Work Phone: Start: 77-50-3688Vvuwoowg tomography angiography of abdominal and/or pelvic blood vesselMD Stanley Emerson Work Phone: Start: 95-66-2885Fyjiqgpkvkrp myocardial perfusion stress studyMD Stanley Emerson Work Phone: Start: 13-20-3103Nki and Parasite Result 1MD Stanley Emerson Work Phone: Start: 89-67-9927Ysv OR parasites identificationMD Stanley EnSolyer Work Phone: Start: 61-73-1793Hdnxk cultureMD Stanley EnSolyer Work Phone: Cataract surgeryEdludy Rich EnSolchery Work Phone: Insertion of stent in inferior vena cavaEdludy Rich [employer] Work Phone: Operation on bladderEdludy Rich [employer] Work Phone: Urinary catheter placementEdludy Rich [employer] Work Phone: NEGATED: Highlighted row has not occurred!Colonoscopy Stanley Rich EnSolchery Work Phone: Plan of Treatment DateCare ActivityDetailAuthorStart: 15-98-8232UYfO/Tdap/Td Vaccines (2 - Td or Tdap)DTaP/Tdap/Td Vaccines (2 - Td or Tdap)[facility] Start: 11-15-2025 End: 15-85-2361Gsdmoot encounter yrmwivhxu29/23/2026 11:20 AM EDT Office Visit [facility] [address] [phone] Teo Al MD [address] [facility] [address] [place] [address] [facility]: 45-69-0935Vghlmpi stimulating hormone measurementTSH LevelUnBlanchard Valley Health System: 44-31-6154POHCE-19 Vaccine ( season)COVID-19 Vaccine ( season)[facility]: 12-72-5722MycyuuqduzallujpJtgcmabgqeivvzJbzyniajuk [facility]Start: 06-29-2025 End: 46-41-3756Ubbimepafuz [Units/volume] in Serum or PlasmaThyroid Stimulating Hormone Lab Routine Paroxysmal atrial fibrillation (Multi) High risk medication use Expected: 06/29/2025 (Approximate), Expires: 03/29/2026[facility] Area Work Phone: Comment on above:Expected: 06/29/2025 (Approximate), Expires: 03/29/2026Start: 12-19-2025Medicare Annual Wellness (AWV)Medicare Annual Wellness (AWV)[facility] HealthcareStart: 05-10-2025 End: 68-74-1029Beoqdfj encounter pdjwtannc54/16/2025 2:00 PM EST Office Visit [address] Medicine [address] [place] [address] Stanley Emerson MD [address] [place] [address] (Fax)[address] MedicineStart: 77-51-4906hczwueomeqQupagpiaqtDuzdxwiv:EU BellevueStart: 03-29-2025 End: 13-20-7433Tnwsmel encounter vlcndqaby86/04/2025 11:00 AM EST Office Visit [facility] [address] [facility] [address] [place] [address] Teo Al MD [address] [facility] [address], [address] [place] [address] [facility]: 03-21-2025 End: 44-19-7181Fzzczaam Pulmonary Function Test (Spirometry/DLCO/Lung Volumes) Complete Pulmonary Function Test (Spirometry/DLCO/Lung Volumes) PFT Routine Paroxysmal atrial fibrillation (Multi) High risk medication use Expected: 03/21/2025 (Approximate), Expires: 05/21/2025[facility] Work Phone: Comment on above:Expected: 03/21/2025 (Approximate), Expires: 05/21/2025Start: 03-21-2025 End: 38-49-3180CO Chest 2 ViewsXR chest 2 views Imaging Routine Paroxysmal atrial fibrillation (Multi) High risk medication use Expected: 03/21/2025, Expires: 05/21/2025[facility] Work Phone: Comment on above:Expected: 03/21/2025, Expires: 05/21/2025Start: 03-12-2025 End: 21-87-6360Nxfehtbe Pulmonary Function Test (Spirometry/DLCO/Lung Volumes) Complete Pulmonary Function Test (Spirometry/DLCO/Lung Volumes) PFT Routine Paroxysmal atrial fibrillation (Multi) High risk medication use Expected: 03/12/2025 (Approximate), Expires: 09/10/2025[facility] Work Phone: Comment on above:Expected: 03/12/2025 (Approximate), Expires: 09/10/2025Start: 46-85-7384Vsopjx Vaccines (2 of 2)Zoster Vaccines (2 of 2)[facility]: 01-29-2025 End: 89-17-0597Yzbrfrqob aminotransferase [Enzymatic activity/volume] in Serum or Plasma by With P-5'-PAspartate Aminotransferase Lab Routine Paroxysmal atrial fibrillation (Multi) High risk medication use Expected: 01/29/2025, Expires: 07/29/2025[facility] Work Phone: Comment on above:Expected: 01/29/2025, Expires: 07/29/2025Start: 01-29-2025 End: 95-70-9675Fhkpb metabolic 2000 panel - Serum or PlasmaBasic Metabolic Panel Lab Routine Paroxysmal atrial fibrillation (Multi) High risk medication use Ex pected: 01/29/2025, Expires: 07/29/2025[facility] Work Phone: Comment on above:Expected: 01/29/2025, Expires: 07/29/2025Start: 01-29-2025 End: 64-97-7658Favtewif Pulmonary Function Test (Spirometry/DLCO/Lung Volumes) Complete Pulmonary Function Test (Spirometry/DLCO/Lung Volumes) PFT Routine Paroxysmal atrial fibrillation (Multi) High risk medication use Expected: 01/29/2025 (Approximate), Expires: 07/29/2025Un[facility] Work Phone: Comment on above:Expected: 01/29/2025 (Approximate), Expires: 07/29/2025Start: 01-29-2025 End: 90-20-7124Eqihl 1996 panel - Serum or PlasmaLipid Panel Lab Routine Dyslipidemia Expected: 01/29/2025 (Approximate), Expires: 07/29/2025UnOhio [facility] Work Phone: Comment on above:Expected: 01/29/2025 (Approximate), Expires: 07/29/2025Start: 01-29-2025 End: 69-65-5852Dejzifjztso [Units/volume] in Serum or PlasmaThyroid Stimulating Hormone Lab Routine Paroxysmal atrial fibrillation (Multi) High risk medication use Expected: 01/29/2025, Expires: 07/29/2025UnOhio [facility] Work Phone: Comment on above:Expected: 01/29/2025, Expires: 07/29/2025Start: 01-29-2025 End: 09-48-3225CC Chest 2 ViewsXR chest 2 views Imaging Routine Paroxysmal atrial fibrillation (Multi) High risk medication use Expected: 01/29/2025 (Approximate), Expires: 07/29/2025UnOhio [facility] Work Phone: Comment on above:Expected: 01/29/2025 (Approximate), Expires: 07/29/2025Start: 62-57-7906ENCDQ-19 Vaccine ( season)COVID- 19 Vaccine ( season)[facility] HealthcareStart: 90-75-0217Ishuprntt vaccinationInfluenza Vaccine (#1)[facility] HealthcareStart: 01-15-2025 EchocardiographyEchocardiogramUnOhio State University Wexner Medical CenterStart: 11-19-2024 End: 94-46-1480Rgsvyjd aminotransferase [Enzymatic activity/volume] in Serum or Plasma by With P-5'-PAlanine Aminotransferase Lab Routine Paroxysmal atrial fibrillation (Multi) High risk medication use Expected: 11/19/2024 (Approximate), Expires: 05/21/2025UnOhio [facility] Work Phone: Comment on above:Expected: 11/19/2024 (Approximate), Expires: 05/21/2025Start: 11-19-2024 End: 78-32-6787Qprnfdyjp aminotransferase [Enzymatic activity/volume] in Serum or Plasma by With P-5'-PAspartate Aminotransferase Lab Routine Paroxysmal atrial fibrillation (Multi) High risk medication use Expected: 11/19/2024 (Approximate), Expires: 05/21/2025UnOhio [facility] Work Phone: Comment on above:Expected: 11/19/2024 (Approximate), Expires: 05/21/2025Start: 11-19-2024 End: 45-07-3774Ypulg metabolic 2000 panel - Serum or PlasmaBasic Metabolic Panel Lab Routine Paroxysmal atrial fibrillation (Multi) High risk medication use Ex pected: 11/19/2024 (Approximate), Expires: 05/21/2025UnOhio [facility] Work Phone: Comment on above:Expected: 11/19/2024 (Approximate), Expires: 05/21/2025Start: 11-19-2024 End: 90-29-9087FSY panel - Blood by Automated countCBC Lab Routine Paroxysmal atrial fibrillation (Multi) High risk medication use Expected: 11/19/2024 (Approximate), Expires: 05/21/2025UnOhio [facility] Work Phone: Comment on above:Expected: 11/19/2024 (Approximate), Expires: 05/21/2025Start: 11-19-2024 End: 28-94-1851Lizgh 1996 panel - Serum or PlasmaLipid Panel Lab Routine Dyslipidemia Expected: 11/19/2024 (Approximate), Expires: 05/21/2025UnOhio [facility] Work Phone: Comment on above:Expected: 11/19/2024 (Approximate), Expires: 05/21/2025Start: 11-19-2024 End: 19-15-1727Yohenwahthl [Units/volume] in Serum or PlasmaThyroid Stimulating Hormone Lab Routine Paroxysmal atrial fibrillation (Multi) High risk medication use Expected: 11/19/2024 (Approximate), Expires: 05/21/2025UnOhio [facility] Work Phone: Comment on above:Expected: 11/19/2024 (Approximate), Expires: 05/21/2025Start: 11-09-2024 End: 44-01-5745Ajwiquh encounter procedureNOMS CI FM 100Comment on above:Arrived Start: 10-14-2024 End: 83-45-5520Xnrefvk encounter rzicuugel03/22/2025 2:30 PM EDT Office Visit [facility] [address] [place] [address] Stanley Emerson MD [address] [place] [address] [facility] FM 100Start: 26-60-3393FftqrkjjjKettering Health Springfieldtart: 10-08-2024 End: 88-89-4483Nlnky metabolic 2000 panel - Serum or PlasmaBasic Metabolic Panel Lab Routine Pre-operative cardiovascular examination Expected: 10/08/2024 (Celine roximate), Expires: 10/08/2025UnOhio [facility] Work Phone: Comment on above:Expected: 10/08/2024 (Approximate), Expires: 10/08/2025Start: 10-08-2024 End: 01-56-3602HTJ panel - Blood by Automated countCBC Lab Routine Pre-operative cardiovascular examination Expected: 10/08/2024 (Approximate), Expires: 10/08/2025UnOhio [facility] Medical [facility] Work Phone: Comment on above:Expected: 10/08/2024 (Approximate), Expires: 10/08/2025Start: 10-08-2024 End: 37-34-7581OS and aPTT panel - Platelet poor plasma by Coagulation assay Coagulation Screen Lab Routine Pre-operative cardiovascular examination Bradyarrhythmia on pre-operative cardiovascular examination Pre-operative cardiovascular examination, supraventricular arrhythmia Expected: 10/08/2024 (Approximate), Expires: 10/08/2025[facility] Service Area Work Phone: Comment on above:Expected: 10/08/2024 (Approximate), Expires: 10/08/2025Start: 96-20-1977Hpprij Wellness Visit (Medicare)Annual Wellness Visit (Medicare)[facility] CenterPatients Know Best [facility] HospitalStart: 40-85-9776Jctyn culture [facility]: 24-90-3254Orldkndf identified in Urine by CultureUrine CultureKettering Health Springfieldtart: 51-89-4217Bclll cultureKettering Health Springfieldtart: 68-48-2147Upskktsg identified in Urine by CultureUrine CultureKettering Health Springfieldtart: 09-23-2024 US Lower extremity artery - bilateralKettering Health Springfieldtart: 09-21-2024 End: 21-06-1156Knlskek encounter rprgniqqw44/29/2025 2:15 PM EDT Office Visit NOMS CI FM 100 [address] [facility] [address] [place] [address] Stanley Emerson MD [address] [facility] [address] [place] [address] 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 Expected: 09/10/2024 (Approximate), Expires: 09/10/2025[facility] Work Phone: Comment on above:Expected: 09/10/2024 (Approximate), Expires: 09/10/2025Start: 09-10-2024 End: 23-60-6018Swwhoeuueci [Units/volume] in Serum or PlasmaThyroid Stimulating Hormone Lab Routine Dyslipidemia Expected: 09/10/2024 (Approximate), Expires: [facility] Work Phone: Comment on above:Expected: 09/10/2024 (Approximate), Expires: 09/10/2025Start: 09-09-2024 End: 24-25-3433Mlhasnsexlf [Units/volume] in Serum or PlasmaThyroid Stimulating Hormone Lab Routine Paroxysmal atrial fibrillation (Multi) High risk medication use Expected: 09/09/2024 (Approximate), Expires: 07/29/2025[facility] Work Phone: Comment on above:Expected: 09/09/2024 (Approximate), Expires: 07/29/2025Start: 07-29-2024 End: 04-90-4640Urddifp encounter lhotedxkh14/06/2025 11:00 AM EST Office Visit [facility] [address] [facility] [address] [place] [id number] Teo Al MD [address] [facility] 2, [address] [place] [address] [facility] HospitalStart: 05-21-2024 End: 44-77-2162Olnglru aminotransferase [Enzymatic activity/volume] in Serum or Plasma by With P-5'-PAlanine Aminotransferase Lab Routine Paroxysmal atrial fibrillation (Multi) High risk medication use Expected: 05/21/2024 (Approximate), Expires: 05/21/2025[facility] Work Phone: Comment on above:Expected: 05/21/2024 (Approximate), Expires: 05/21/2025Start: 05-21-2024 End: 89-38-7924Lluvcqviu aminotransferase [Enzymatic activity/volume] in Serum or Plasma by With P-5'-PAspartate Aminotransferase Lab Routine Paroxysmal atrial fibrillation (Multi) High risk medication use Expected: 05/21/2024 (Approximate), Expires: 05/21/2025[facility] Area Work Phone: Comment on above:Expected: 05/21/2024 (Approximate), Expires: 05/21/2025Start: 05-21-2024 End: 96-72-4624Bxbue metabolic 2000 panel - Serum or PlasmaBasic Metabolic Panel Lab Routine Paroxysmal atrial fibrillation (Multi) High risk medication use Ex pected: 05/21/2024 (Approximate), Expires: 05/21/2025[facility] Work Phone: Comment on above:Expected: 05/21/2024 (Approximate), Expires: 05/21/2025Start: 05-21-2024 End: 78-23-5324Dulqbtutyvb [Units/volume] in Serum or PlasmaThyroid Stimulating Hormone Lab Routine Paroxysmal atrial fibrillation (Multi) High risk medication use Expected: 05/21/2024 (Approximate), Expires: 05/21/2025[facility] Work Phone: Comment on above:Expected: 05/21/2024 (Approximate), Expires: 05/21/2025Start: 05-13-2024 End: 49-32-4219Guxhuwa encounter procedureNOMS CI FM 100Comment on above: Encounter for Medicare annual wellness exam; Advance directive discussed with patient; Encounter for screening for other disorder; Screening for alcohol problem; Former smoker; PolypharmacyStart: 05-10-2024 End: 51-50-9818Luuxxjt encounter sfnjbaagf68/16/2024 11:00 AM EST Office Visit NOMS CI FM [address] [place] [address] Stanley Emerson MD [address] [place] [address] (Fax) Essential hypertension, benign (CMS/HCC); Hypertensive nephropathy [...] both ears; Former smoker; OverweightStart: 05-06-2024 End: 14-32-4360Fbtbtof encounter procedureNOMS CI FM 100Start: 04-12-2024 End: 88-85-4989Leiipxo encounter fkwymbpzw56/18/2024 3:20 PM EST Office Visit [facility] [address] [facility] [address] [place] [phone] Teo Al MD [address] [facility] [address], [address] [place], [place] [id number] [facility]: 03-18-2024 End: 41-85-5333Pcycyol encounter tceypfdaa07/24/2024 11:30 AM EDT Office Visit NOMS CI FM 100 [address] [facility] [facility] [place] [address] Stanley Emerson MD [address] [place] [address] Pneumonia of right lower lobe due to infectious organismNOMS CI FM 100Comment on above:Pneumonia of right lower lobe due to infectious organismStart: 03-11-2024 End: 69-11-2501Ktpamcwp Pulmonary Function Test (Spirometry/DLCO/Lung Volumes) Complete Pulmonary Function Test (Spirometry/DLCO/Lung Volumes) PFT Routine Paroxysmal atrial fibrillation (Multi) High risk medication use Expected: 03/11/2024 (Approximate), Expires: 02/09/2025[facility] Work Phone: Comment on above:Expected: 03/11/2024 (Approximate), Expires: 02/09/2025Start: 03-11-2024 End: 02-31-5102DM Chest 2 ViewsXR chest 2 views Imaging Routine Paroxysmal atrial fibrillation (Multi) High risk medication use Expected: 03/11/2024, Expires: 02/09/2025[facility] Work Phone: Comment on above:Expected: 03/11/2024, Expires: 02/09/2025Start: 13-76-7248Sapjb chest X-rayXR chest 2V*[facility]: 02-18-2024 End: 37-65-4063Mbpcbdeqcqfw / ancillary services vdpzrwywjq89/25/2024 1:00 PM EDT Ancillary Procedure [address] [place] [address] [facility]Start: 02-17-2024 End: 39-21-0444WFM 12 LeadECG 12 Lead ECG Routine Paroxysmal atrial fibrillation (Multi) Expected: 02/17/2024 (Approximate), Expires: 02/09/2025[facility] Work Phone: Comment on above:Expected: 02/17/2024 (Approximate), Expires: 02/09/2025Start: 02-10-2024 End: 02-98-7617Aefyoahsb aminotransferase [Enzymatic activity/volume] in Serum or Plasma by With P-5'-PAspartate Aminotransferase Lab Routine Paroxysmal atrial fibrillation (Multi) High risk medication use Expected: 02/10/2024 (Approximate), Expires: 02/09/2025[facility] Work Phone: Comment on above:Expected: 02/10/2024 (Approximate), Expires: 02/09/2025Start: 02-10-2024 End: 89-73-7113Pazli metabolic 2000 panel - Serum or PlasmaBasic Metabolic Panel Lab Routine Paroxysmal atrial fibrillation (Multi) High risk medication use Ex pected: 02/10/2024 (Approximate), Expires: 02/09/2025[facility] Work Phone: Comment on above:Expected: 02/10/2024 (Approximate), Expires: 02/09/2025Start: 02-10-2024 End: 22-70-3896Rlcnqqecxhz [Units/volume] in Serum or PlasmaThyroid Stimulating Hormone Lab Routine Paroxysmal atrial fibrillation (Multi) High risk medication use Expected: 02/10/2024 (Approximate), Expires: 02/09/2025[facility] Work Phone: Comment on above:Expected: 02/10/2024 (Approximate), Expires: 02/09/2025Start: 00-14-7877UYNQF-19 Vaccine ( season)COVID- 19 Vaccine ( season)[facility]: 65-51-2441Quhnpbjar vaccinationInfluenza Vaccine (#1)[facility]St[facility]: 18-04-3764UulrivkozK[facility]tering Health Springfieldtart: 01-23-2024 Bacteria identified in Urine by CultureKettering Health Springfieldtart: 91-75-6658Ovihcwfb to clinical allergistK[facility]tering Health Springfieldtart: 39-95-8677Qijhhllb to rehabilitation physicianKeenan Private Hospital Start: 10-83-6127DUO, Provider: Teo Al, Status: Pen, Time: 11:50 AMFUV, Provider: Teo Al, Status: Pen, Time: 11:50 [facility] DO Work Phone: Start: 95-12-2452Oovicjie of Coronary Artery, One Artery with Drug-eluting Intraluminal Device, Percutaneous ApproachDilation of Coronary Artery, One Artery with Drug-eluting Intraluminal Device, Percutaneous ApproachKettering Health Springfieldtart: 99-22-6830Dgxodtphlsf of Left Heart using Low Osmolar ContrastFluoroscopy of Left Heart using Low Osmolar ContrastKettering Health Springfieldtart: 33-08-9743Swisnnwqxpj of Multiple Coronary Arteries using Low Osmolar ContrastFluoroscopy of Multiple Coronary Arteries using Low Osmolar ContrastKeenan Private Hospital Start: 34-24-5369Rekujmfjcoz of Cardiac Sampling and Pressure, Left Heart, Percutaneous ApproachMeasurement of Cardiac Sampling and Pressure, Left Heart, Percutaneous ApproachKettering Health Springfieldtart: 16-47-6449Vvnwstfu admissionK[facility]tering Health Springfieldtart: 22-58-8508Dvsoggby to cardiac rehabilitation programKettering Health Springfieldtart: 01-16-2024 [facility]: 21-32-7731AcghpgzugKettering Health Springfieldtart: 07-14-5045Uxujtrmx identified in Urine by CultureKettering Health Springfieldtart: 24-07-9678HNM, Provider: Teo Al, Status: Pen, Time: 10:10 AMFUV, Provider: Teo Al, Status: Pen, Time: 10:10 AMTwo [facility] 250 DO Work Phone: Start: 97-55-3178PU Abdomen WO and W contrast IV [facility]: 41-91-7427GLL of abdomen with contrastMR abdomen wo/w [facility]: 56-59-0138SjhnabqumKettering Health Springfieldtart: 81-84-1041Dyhjeysqtoo of Aorta and Bilateral Lower Extremity Arteries using Low Osmolar ContrastFluoroscopy of Aorta and Bilateral Lower Extremity Arteries using Low Osmolar ContrastKettering Health Springfieldtart: 40-04-5222Bpjmknancfx of Abdominal Aorta with Intraluminal Device, Percutaneous ApproachRestriction of Abdominal Aorta with Intraluminal Device, Percutaneous ApproachKettering Health Springfieldtart: 48-40-8696TfysfqwntKettering Health Springfieldtart: 21-81-1154Whxypurypq procedureKettering Health Springfieldtart: 70-69-3386ZbxvbarmhKettering Health Springfieldtart: 05-17-2022 End: 53-40-4441MuhinqskaKettering Health Springfieldtart: 28-83-2950Uqesttri to nephrologistK[facility]tering Health Springfieldtart: 28-69-1496Lvuteagx to vascular surgeonK[facility]tering Health Springfieldtart: 87-70-3305Zsqnxbxh admissionK[facility]tering Health Springfieldtart: 66-72-0685GVK High Risk: (Elderly (60+) or Population) (1 - 1-dose 75+ series)RSV High Risk: (Elderly (60+) or Population) (1 - 1-dose 75+ series)[facility]: 54-42-6038BST patients and/or patients aged 60+ years (1 - 1-dose 60+ series)RSV patients and/or patients aged 60+ years (1 - 1-dose 60+ series)[facility]: 73-94-9447Ilrygtim vaccine (1 of 2)Shingles vaccine (1 of 2)[facility]: 15-85-8176Djziza Vaccines (1 of 2)Zoster Vaccines (1 of 2) [facility]: 87-44-2164HRtH/Tdap/Td Vaccines (1 - Tdap)DTaP/Tdap/Td Vaccines (1 - Tdap)[facility]: 84-16-8458KWuH/Tdap/Td vaccine (1 - Tdap)DTaP/Tdap/Td vaccine (1 - Tdap)[facility]: 25-04-6874Lkvnt screening for proteinCKD: Urine Protein ScreeningSelect Medical [facility]: 57-77-1358Vufasjuj mellitus screeningDiabetes ScreeningUnBlanchard Valley Health System: 60-52-5772Weyqgyguyg ScreenDepression ScreenBon [facility]: 84-96-5548Akvwj panelLipidsBon [facility]: 81-60-7785NZxR/Tdap/Td Vaccines (1 - Tdap)DTaP/Tdap/Td Vaccines (1 - Tdap)[facility]: 93-99-7170Hyjcxgrtyu measurementCreatinine [facility]: 13-98-4936Pniug panelLipid PanelSelect Medical [facility]: 07-08-1944Medicare Annual Wellness VisitMedicare Annual Wellness Visit (AWV)[facility]: 90-66-9231Uhofamvoe measurementPotassium [facility]: 1945 Thyroid stimulating hormone measurementTSMemorial Hospital of [facility] End: 35-12-0238Wis[place] Metabolic Panel w/ Reflex to MGBasic Metabolic Panel w/ Reflex to MG Lab Routine Tomorrow AM for 5 Occurrences starting 10/03/2024until 10/07/2024, 3 completedBon [employer] OGK-5[facility] on above:Tomorrow AM for 5 Occurrences starting 10/03/2024 until 10/07/2024, 3 completedBLOOD CULTURE 1 BLOOD CULTURE 1 Lab Routine 04/28/2024 8:34 AM [facility] BLOOD CULTURE 2 Lab Routine 04/28/2024 8:40 AM [facility] End: 69-35-6562BLE W Auto Differential panel - BloodCBC with Auto Differential Lab Routine Tomorrow AM for 5 Occurrences starting 10/03/2024 until 10/07/2024, 3 completedBon [facility] ISI TechnologyCH[facility] on above:Tomorrow AM for 5 Occurrences starting 10/03/2024 until 10/07/2024, 3 completedCulture, Urine Culture, Urine Microbiology [employer] Label Print 10/02/2024 3:43 PM EDBallad HealthInvo Bioscience [facility] 12 LeadECG 12 Lead ECG Routine Paroxysmal atrial fibrillation (Multi) 02/24/2024 2:45 PM [facility] Service Area Work Phone: insj implntbl defib pulse gen w/1 existing ldICD SUBQ IMPLANT Cardiomyopathy, ischemic Ventricular ectopy/arrhythmia, pre-operative cardiovascular examVirtual GARY Cardiac Cath LabOxygen therapy [Minimum Data Set] Initiate Oxygen Therapy Protocol Respiratory Care Routine As Needed until discontinued starting 10/02/2024on HarriComment on above:As Needed until discontinued starting 10/02/2024Patient EducationPomerene Hospital Ctr Work Phone: Patient referralPomerene Hospital Ctr Work Phone: End: 54-28-9477Vnyerwq-INRProtime-INR Lab Routine Daily for 3 Weeks starting 10/03/2024 until 10/23/2024, 3 completedBon HarriComment on above:Daily for 3 Weeks starting 10/03/2024 until 10/23/2024, 3 completedRenal function 1999 panel - Serum or [facility] HospitalRenal function 1999 panel - Serum or [facility] HospitalRenal function 1999 panel - Serum or [facility] HospitalRenal function 1999 panel - Serum or [facility] HospitalRenal function 1999 panel - Serum or [facility] Hospitalpirometry panelIncentive spirometry Respiratory Care Routine Every 2hr while awake until discontinued starting 10/02/2024on HarriComment on above:Every 2hr while awake until discontinued starting 10/02/2024URINE CULTURE - [facility]UR[facility] Lab Routine 09/28/2024 6:08 PM EDTNOCO HealthcareURINE CULTURE - FRMCURINE CULTURE - FR Lab Routine 10/01/2024 3:40 PM EDTNOCO Healthcare End: 09-54-2309SQ Heart TransthoracicRUST Service Area Work Phone: Comment on above:Once for 1 Occurrences starting 08/06/2024 until 08/06/2024US Thoracic and abdominal aortaKeenan Private HospitalXR Chest 2 ViewsAscension Saint Clare's Hospital Immunizations Immunization DateImmunizationNotesCare WhbjucmcUmixdfzl81-47-8020exoemcshd virus vaccine, unspecified formulationAurora Orzech [facility]10-21-2025influenza, seasonal, injectableTeo Al MD Work Phone: [facility]10-16-2025influenza virus vaccine, unspecified formulationAurora Orzech [facility] Hospitalue10-16-2025influenza, high dose seasonal, preservative-freeTeo Al MD Work Phone: [facility]08-06-2025tetanus toxoid, reduced diphtheria toxoid, and acellular pertussis vaccine, adsorbed Teo Al MD Work Phone: [facility] Work Phone: [phone] vaccine recombinantTeo Al MD Work Phone: [facility] Work Phone: [phone] vaccine preF3, recombinantAurora Orzech [facility] Hospitalue03-31-2025RSV, recombinant, protein subunit RSVpreF, adjuvant reconstitu, 120mcg/0.5mL, PF (Arexvy)Stanley Emerson MD Work Phone: [facility] LawnVtozauxxlk24-06-2086zuqmewzlq virus vaccine, unspecified formulationPaChelsea Memorial Hospital [facility] Hospitaly10-25-2024influenza, seasonal, injectableGeneric ProviderNOSt. [facility] Institute 36-32-0583Xxzgdu Purple Cap SARS-CoV-2 VaccinationGeneric ProviderNOSt. Louis Behavioral Medicine InstitutePxoiarocad99-28-3583Hpjjuvgomzsm Conjugate PCV 20Edludy Emerson MD Work Phone: [facility] LawnJygkxbexav80-43-0576Plahtbzzj, Seasonal, Quadrivalent, AdjuvantedTeo Al MD Work Phone: [facility] Work Phone: [phone] virus vaccine, unspecified formulationTeo Al MD Work Phone: [facility]09-24-2023SARS-COV-2 (COVID-19) vaccine, mRNA, spike protein, LNP, PF, valente-sucrose, 30 mcg/0.3 mLStanley Emerson MD Work Phone: [facility] LawnDoyfcukude53-67-2912oyrqbikgi, high dose seasonal, preservative-freeTeo Al MD Work Phone: [facility] Work Phone: [phone] Bivalent Booster VaccinationStanley Emerson MD Work Phone: [facility] LawnUuzcuesdjw47-52-1077Zuvidb COVID-19 Vac Bivalent 30 MCG/0.3ML Intramuscular SuspensionStanley Emerson Work Phone: [facility]10-22-2022influenza virus vaccine, unspecified formulationPaparkview health SAMUELS [facility] [place] 416510-22-2022influenza, seasonal, injectableEdludy Emerson Work Phone: [phone]-TpnxmTwo [facility] 250 DO Work Phone: [phone] High-Dose Quadrivalent 0.7 ML Intramuscular Suspension Prefilled SyringeEdludy Emerson Work Phone: [phone]-CjvssTwo [facility] Center 250 DO Work Phone: [phone] virus vaccine, unspecified formulationJENNSOUTHEAST ARIZONA MEDICAL CENTER JOSSELIN [facility]05-11-2022Comirnaty 30 MCG/0.3ML Intramuscular SuspensionEdludy Emerson Work Phone: [phone]-DgijuTwo Twelve Medical Center 250 DO Work Phone: [phone]-78 Cristal Mckeon (Pfizer)MD Stanley Emerson Work Phone: [facility]05-11-2022SARS-CoV-2 mRNA (muucuvhjpna-sldo-yovxsps) vaccineJEERICA OMALLEY [facility]05-11-2022SARS-CoV-2, UnspecifiedEdludy Emerson MD Work Phone: [facility] LawnFvgetaodcl89-76-6819qimmvueqambi polysaccharide vaccine, 23 valentEdludy Emerson Work Phone: [facility]09-30-2021influenza virus vaccine, unspecified formulationPaChelsea Memorial Hospital [facility]09-30-2021influenza, injectable, quadrivalent, preservative freeEdludy Emerson Work Phone: [phone]-SshkcHendricks Community Hospital 250 DO Work Phone: [phone]-YqlZCmmt COVID-19 Vacc 30 MCG/0.3ML Intramuscular SuspensionStanley Emerson Work Phone: [facility] HospitalComment on above:Result Comment: 2022-06-10: LRU7936-02-1816vscfrrcde, high dose seasonal, preservative-freeTeo Al MD Work Phone: [facility] Work Phone: [phone]-QsnKZhku COVID-19 Vacc 30 MCG/0.3ML Intramuscular SuspensionStanely Emerson Work Phone: [facility]02-12-2021Pfizer-BioNTech COVID-19 Vacc 30 MCG/0.3ML Intramuscular SuspensionStanley Emerson Work Phone: [facility] Hospitalue09-29-2020influenza virus vaccine, unspecified formulationHEATHER OMALLEY [facility] Hospitalue09-29-2020influenza, injectable, quadrivalent, preservative freeStanley Emerson MD Work Phone: [facility] LawnZdwyocsnyh45-28-7555Ewyvopfj, quadrivalent, recombinant, injectable influenza vaccine, preservative freeStanley Emerson Work Phone: [phone]-RptyyMe[facility] 250 DO Work Phone: Payers DatePayer CategoryPayerPolicy ID2024Self-[id number] 2016Medicare supplemental policy (as second payer)HUMANA MEDICARE SUPPLEMENT [id number] Health [id number] 2011Medicare [id number] [id number] Health [id number] 2.16.840.1.082083.3.579.2.90968-11-6251Sqzigjk8569158 2.16.840.1.803789.3.57[id number] 2.16840.1.693456.3.579.2.65207-00-0152Nxbrsju2576759 2.16840.1.353528.3.579.2.31151-68-0344Zupnpsu1006409 2.840.1.741560.3.57[id number] 2.0.1.450513.3.579.2.69630-16-5994Cdjbrri8759217 2.840.1.778123.3.579.2.27998-27-8269Gbwrnzj0194856 2.840.1.093015.3.579.2.03257-09-0242Hztdjxt085922157 2.840.1.644329.3.579.2.22152-95-0445Iausxrt974868120 2.840.1.218945.3.579.2.43325-75-2187Tikryly383535165 2.840.1.755763.3.579.2.08438-60-9237Kttwzkt815667782 2.840.1.893382.3.579.2.0[id number] 2.840.1.908904.3.579.2.[id number] 2.840.1.248087.3.579.2.58365-25-9397Mjsbcst128272590 2.840.1.001996.3.579.2.83644-38-5098Rdkaewl494932312 2.16840.1.008243.3.579.2.57176-74-8786Mrrbwzb90988917 2.840.1.606241.3.579.2.06577-87-9623Lveabte40940680 2.0.1.011164.3.579.2.49728-24-3853Ybevdsq47006934 2..1.779612.3.579.2.96293-47-9045Xfaiixf93970512 2.0.1.480460.3.579.2.88014-34-7033Yupxdya82787721 2..1.343184.3.579.2.22081-12-4428Jzjjxoq73647010 2.0.1.067427.3.579.2.73776-49-0335Nzkkrpt96284559 2..1.709077.3.579.2.21520-63-0010Gfyiuuu95021806 2..1.165691.3.579.2.92916-35-7920Wgmseva49545492 2..1.765337.3.579.2.37606-86-6502Dzncgwa03774497 2..1.519631.3.579.2.35108-23-3451Qxqhfxo12160160 2.0.1.579298.3.579.2.98200-61-2275Sykqvmw74133002 2.840.1.909125.3.579.2.55288-17-1441Iltmzzb79088247 2.16.840.1.236274.3.579.2.47618-06-6540Dudexad73475755 2.0.1.818276.3.579.2.90284-10-6076Cywkcar71283635 2.16840.1.976293.3.579.2.48830-46-9948Wehqheu42416204 2.0.1.148110.3.579.2.67592-41-6577Lfefurf72551611 2.0.1.775924.3.579.2.824373-33-5719Zmvwbyx13233737 2.0.1.744482.3.579.2.390783-02-5254Hiwqugh86132075 2..1.844383.3.579.2.500125-75-9799Npmjsqp5038251 2.0.1.386590.3.579.2.304593-61-4968Cspjzcw9267660 2.0.1.038683.3.579.2.886854-39-5182Hhwoknt2843950 2..1.155803.3.579.2.556309-32-7527Pluhkby4183855 2..1.992328.3.579.2.819596-49-3878Vhbwwfe4552056 2.0.1.535835.3.579.2.828991-64-9522Ghotwqs3558837 2.840.1.228558.3.579.2.921017-88-8671Tfpgnsn2210253 2.840.1.501217.3.579.2.916188-42-6962Dajxsiw1910217 2.0.1.484744.3.579.2.827760-93-1980Ksknkwz33356853 2.16840.1.790279.3.579.2.76467-08-1622Fhnxqsq71202556 2.16840.1.654532.3.579.2.29215-76-7220Pldpubc41698775 2.840.1.992422.3.579.2.31468-48-4490Adccfnu74063684 2.0.1.258976.3.579.2.97158-30-9111Bfcvwkn51573840 2.0.1.577061.3.579.2.64203-41-1549Xedezds304093990 2.0.1.912616.3.579.2.816035-83-5775Iqzxoaa989928864 2.840.1.669509.3.579.2.689569-59-8434Rzptlvt902642219 2.0.1.373365.3.579.2.977296-02-7187Ofyciig705228414 2.0.1.845467.3.579.2.983287-50-5043Kfxoujd492986037 2..1.145539.3.579.2.214489-19-2741Agjnliu89183258 2.0.1.623963.3.579.2.71615-29-6060Hlenntt88905270 2.840.1.731234.3.579.2.74843-11-9525Bgbpdgl75843601 2.16840.1.626443.3.579.2.27099-38-8392Hdcbfyw11548298 2.840.1.302693.3.579.2.38699-36-7864Ibmxylk97586377 2.0.1.593332.3.579.2.42348-95-2452Xyhefay64496378 2.0.1.772941.3.579.2.62895-88-5838Muvlwuz84181359 2..1.167516.3.579.2.727MedicareMedicare [id number] 41zm48sv-002v-57l1-8d39-tix00f4[id number] 877w6919-v3hr-5481-x27i-3368629vr15iAcnmywj13016679 2..1.735746.3.579.2.594Whrmbof98474145 2..1.975967.3.579.2.531 Nljwsbq09406060 2..1.356593.3.579.2.389Rpfipch74325963 2..1.730041.3.579.2.565Akmonop59373877 2..1.270051.3.579.2.531 Icdoceg91475828 2..1.891365.3.579.2.778Rbimtgr97553640 2..1.338184.3.579.2.992Fezmjoi54638227 2..1.271524.3.579.2.531 Wcnhmbi76245636 2..1.269725.3.579.2.302Fvqjrkp64651153 2..1.682972.3.579.2.531 Social History DateTypeDetailFacilityStart: 02-10-2024 End: 33-58-3922Benah caffeine consumptionDaily caffeine consumptionMP-[facility] DO Work Phone: Comment on above:3-4 cups coffee daily;05/17/23 quit; 1/2 dozen cigarettes;Start: 06-11-2022 End: 76-64-7895Ewnabci smoking statusHeavy tobacco smoker (finding)[facility] BellevueStart: 02-10-2024 End: 65-02-3715Gdy [facility] 12-31-1965 End: 25-14-9984Pigzzsd smoking status NHISSmoker (finding)[facility]: 08-01-8326Dgl [facility] 07-02-2022 End: 02-85-5180Xuqilxt smoking status NHISEx-smoker (finding)[facility]: 46-22-5673Zyqlwao smoking statusNeverExecutive [facility] of [facility] SanduskyStart: 76-12-6532Mmwctqu of tobacco use Cigarette SmokerUnOhio State University Wexner Medical Center Work Phone: Start: 01-29-2024 End: 69-82-6270Rrdmslw use and exposureSmokeless tobacco non-userUnOhio State University Wexner Medical Center Work Phone: Start: 02-24-2024 End: 17-74-2329Mkvwpccnz beverage intakeLifetime non-drinker (finding)[facility] Work Phone: Start: 74-27-0629Szr assigned at birthNot on file [facility] Work Phone: Start: 01-31-2024 End: 04-67-8708Sleqxerz to SARS-CoV-2 (event)Not sureUnOhio State University Wexner Medical CenterWithin the last year, have you [...] the time - these days [OSQ]To some extentNOCO Healthcare(I/We) worried whether (my/our) food would run out before (I/we) got money to buy more. Never trueNOCO HealthcareStart: 12-22-2009 End: 54-88-2303RpnTfbx (finding)[facility] HospitalHow often do you need to have someone help you when you read instructions, pamphlets, or other written material from your doctor or pharmacy [SILS]AlwaysNOCO Healthcare Sexual OrientationExecutive [facility]rology of [facility] [place] Do you feel stress - tense, restless, nervous, or anxious, or unable to sleep at night because yourmind is troubled all the time - these days [OSQ]Only a littleNOCO HealthcareStart: 87-30-2726Oudrogtto beverage intakeEx-drinker (finding)[facility] Medical Equipment Procedure CodeEquipment CodeEquipment Original TextEquipment IdentifierDates Percutaneous endovascular repair of abdominal aortic aneurysm (AAA)Abdominal aorta endovascular stent-graft()[id number])[id number] FDA Start: 01-76-9357Hdtrrbcqmpml endovascular repair of abdominal aortic aneurysm (AAA)Abdominal aorta endovascular stent-graft ()[id number])[id number] FDAStart: 65-03-8883Awkjqnkhocjg endovascular repair of abdominal aortic aneurysm (AAA)Abdominal aorta endovascular stent-graft()[id number](21)[id number] FDAStart: 91-13-6895Hlyfsvdfysrf endovascular repair of abdominal aortic aneurysm (AAA) Soft-tissue/mesh anchor, non-bioabsorbable ()[id number])[id number])[id number] FDAStart: 61-44-9020JZ STENT JERZY FRONTIER 3.0 X 38FDAStart: 07-69-9240PK STENT JERZY FRONTIER 3.0 X 38FDAStart: 53-51-8861RA STENT JERZY FRONTIER 3.0 X 38FDAStart: 28-39-6295QP STENT JERZY FRONTIER 3.0 X 38FDAStart: 90-14-6818CY STENT JERZY FRONTIER 3.0 X 38FDAStart: 16-48-0218XU STENT JERZY FRONTIER 3.0 X 38FDAStart: 68-44-3393LE STENT JERZY FRONTIER 3.0 X 38FDAStart: 53-54-9538GI STENT JERZY FRONTIER 3.0 X 38FDAStart: 91-51-1798JZ STENT JERZY FRONTIER 3.0 X 38FDAStart: 69-84-1343GX STENT JERZY FRONTIER 3.0 X 38FDAStart: 36-30-2822Psttaqfz peripheral artery stent, bare-metal()[id number] FDAStart: 74-59-8679Zzqlxlxl peripheral artery stent, bare-metal()[id number]([id number] FDA Start: 38-04-0098XK STENT JERZY FRONTIER 3.0 X 38FDAStart: 01-16-2024 Goals DatePatient GoalDesired Activity/State Functional Status GiuiMlmoyobvznOinprtBszzgiay60-81-5896Wmwcjjujjb ecdkvv395/62[facility] Work Phone: 1(448) 174-158711377245-58-9687Jzlaj signs63 03/29/2025 10:56 AM Anjel Palacios, [facility] Work Phone: 1(917) 853-592211716831-99-6826NkvzudhrvqGeorgetown Behavioral Hospital Work Phone: 1(811) 639-460802066091-16-5124Aryymczaco StatusN/AExec[facility] of [facility]12-19-2024Patient Health Questionnaire 2 item (PHQ-2) [Reported][facility]wnZtdxkmscrh41-44-0666Lknykpltig StatusN/AExec[facility]08-30-2024Functional status [facility] Work Phone: 1(701) 606-984808-07366900-96-7462Okizj score [AUDIT-C]0 12/31/2023 8:57 AM EDT Dora Santiago LPNNOMS Ysimbjrjmb20-94-0349Vziipxi Health Questionnaire 2 item (PHQ-2) [Reported][facility] Lujwukymir34-46-8720Yzyxrtqtgv StatusN/AExec[facility] of [facility]02-05-2024Functional StatusN/A [facility]01-16-2024Functional StatusN/AFTr[facility] Health [facility]10-17-2023Functional StatusN/A[facility]07-18-2023Functional StatusN/A [facility]04-26-2023Functional StatusN/A[facility]03-08-2023 Functional StatusN/A[facility] 94-96-8030Qmoqpmkcwf statusPatient at [facility]St[facility] Work Phone: 1(582) 670-85390425530-05-0901Mpeyutpjrq StatusN/AExec[facility] of [facility]12-22-2022Functional statusPatient Not at [facility]St[facility] Work Phone: [facility] Mental Status VzrkYfffhrnprnAcgdujDqfhlboq29-34-9653Vnfxpprag functionCognitive Status Patient is Progressing Toward [facility] Work Phone: 1(885) 450-277502911990-12-3157Uecbwxzik functionCognitive Status Patient at [facility] Work Phone: 1(210) 656-798012-782044-93-2154Zdmhcrvwg functionCognitive Status Patient at [facility] Work Phone: Clinical Notes 06-04-2022 to 03-31-2025 Note Date & KqtoTcudInwrfeqr80-36-6592 Hospital Discharge instructions Patient Education 03/31/2025 15:52:16 [...] Follow these instructions at home: Medicines Take trzf-qab-otpbekj and prescription medicines only as told by [...] or the blood stops without treatment. Take pgog-dwu-uiuxzxh and prescription medicines only as told by your health care provider. Drink enough fluid to keep your urine pale yellow. This information is not intended to replace advice given to you by your health care provider. Make sure you discuss any questions you have with your health care provider. Document Revised: 01/10/2021 Document Reviewed: 01/10/2021 [employer] Patient Education 2023 IQzone. Follow Up Care 03/31/2025 09:35:18 With:TC Boles APRN, RAHUL Reece, URL Address: When: Unknown [facility] 11-06-2025 NotePatient Education Urology Hematuria, Adult Hematuria [...] these instructions at home: Medicines ??? Take ktid-bky-gjfyimy and prescription medicines only as told by [...] the blood stops without treatment. ??? Take qrux-aze-ntcnamd and prescription medicines only as told by your health care provider. ??? Drink enough fluid to keep your urine pale yellow. This information is not intended to replace advice given to you by your health care provider. Make sure you discuss any questions you have with your health care provider. Document Revised: 01/10/2021 Document Reviewed: 01/10/2021 [employer] Patient Education ? 2023 IQzone.[facility] 03-29-2025 History of Present illness Narrative* [...] leading to LAD stenting December 2023 at [facility], continue Plavix, high intensity statin, patient is not on aspirin since he is also on Coumadin 2-post [place] paroxysmal atrial fibrillation, currently in sinus rhythm [...] surgery, he is refusing follow-up at the [facility] 11- history of bladder cancer followed by [...] In Cardiology 4. 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nitroglycerin (Nitrostat) 0.4 mg [...] exam, discussion and plan. documented in [facility] encounterGe[facility] Work Phone: 1(180) 645-441611-04-2025 Instructions* Patient Instructions* Ruth Mojica LPN - [...] mg one time daily documented in this encounterGeorgetown [facility] Hospital Work Phone: 1([phone]) 641-799406-24-2025 Hospital Discharge instructions Patient Education 11/16/2024 14:35:51 [...] provider. Document Revised: 08/01/2021 Document Reviewed: 04/27/2021 [employer] Patient Education 2021 IQzone. 11/16/2024 14:35:49 Cancer Screening for Males Cancer [...] if anything looks unusual. Males with a wwkfsq-wtrf-pxxsax risk for skin cancer may want to see a project specialist (automotive parts clerk) for an annual body check. Where to find more information [employer]: cancer.org Centers for Disease Control and Prevention: cdc.gov National Cancer Deaver: cancer.gov Contact a health care provider if: [...] provider. Document Revised: 05/20/2023 Document Reviewed: 12/02/2022 [employer] Patient Education 2023 IQzone. Follow Up Care 10/26/2024 10:10:17 With:ABRIL CASILLAS, Katia Macias, URL Address: [facility] [address], [place] [address]- When: Unknown [facility] [place] 06-24-2025 NotePatient Education Oncology Cancer Screening for [...] if anything looks unusual. Males with a dqerwv-ypmj-jtnqjx risk for skin cancer may want to see a project specialist (dermatologi (more content not included)...[facility]06-17-2025 History of Present illness Narrative* Stanley [...] police. He had a rx ofseraquil from [facility] and she put him back on [...] exacerbation. We discussed and she has a xqxb-viq-rehadtp hydrocortisone cream at home. For now I [...] by mouth at bedtime documented in this encounterCox Walnut LawnIiivmzrlkt25-76-9820 History of Present illness Narrative* Stanley Emerson MD - 10/14/2024 2:30 PM EDT Images from the original note were not included. Patient ID: Alex Anedrson is a 78 y.o. male who presents for: Flowsheet Row Patient Outreach from 10/06/2024 in [facility] with Joi Zhang LPN Hospital Information ED, Hospital or Longterm Facility Discharge? Hospital Patient has been contacted within two business days of discharge Yes Diagnosis Community acquired pneumonia of lower lobe of lung , Lower extremity edema Edema, Delirium due to another medical condition Discharge Date 10/05/24 Discharged To: Home Setting Discharge Hospital [facility] Engagement Call Start Time 1207 Admission [...] have any upcoming specialty appointments? Yes [10/08 Glass Engraver, 10/11 outpatientsurgery for aortic aneuysm left knee] Self Management Does patient have home health? yes What is the home health agency? [facility] Has home health visited the patient within [...] in ER and Hospital. Pt arrived to [facility] ER d/t [facility] crisis line stating to go because of pts increased delusions, hallucinations, and suicidal ideation. found pocket knife on pt as well. Pt transferred to [facility]. Pt positive for metapneumovirus, Urine cultures [...] transition of care note is reviewed. a pidr-dv-fusq evaluation is done today. Medical decision making [...] Updated the medical record. documented in this [facility]05-16-2025 History of Present illness Narrative* [...] interventions. Family holds healthcare power of assistant county attorney. DNR status temporarily revoked during procedure. [...] I discussed arrhythmia, ECG, shared decision making, Spalding decision tool, informed consent, treatment options, risk, [...] THE PRESENCE OF DR. RUBY MONTANA MD, [facility], [facility] I, , personally performed the [...] DNR and POA forms, shared decision making, Spalding decision tool, and informed consent [1] Social History Socioeconomic History Marital status: Tobacco Use Smoking status: Former Types: Cigarettes Smokeless tobacco: Never Substance and Sexual Activity Alcohol use: Never Drug use: Never Social Drivers of Health Financial Resource Strain: Low Risk (12/31/2023) Received from [facility] Overall Financial Resource Strain (CARDIA) Difficulty of Paying Living Expenses: Not hard at all Food Insecurity: Patient Unable To Answer (10/02/2024) Received from [facility] Hunger Vital Sign Worried About Running Out of Food in the Last Year: Patient unable to answer Ran Out of Food in the Last Year: Patient unable to answer Transportation Needs: Patient Unable To Answer (10/02/2024) Received from [facility] PRAPARE - Transportation Lack of Transportation (Medical): Patient unable to answer Lack of Transportation (Non-Medical): Patient unable to answer Physical Activity: Inactive (12/31/2023) Received from [facility] Exercise Vital Sign Days of Exercise per Week: 0 days Minutes of Exercise per Session: 0 min Stress: Stress Concern Present (12/31/2023) Received from [facility] [employer] Occupational [employer] - Occupational Stress Questionnaire Feeling of Stress : To some extent Social Connections: Moderately Isolated (12/31/2023) Received from [facility] Social Connection and Isolation Panel [NHANES] Frequency of Communication with Friends and Family: More than three times a week Frequency of Social Gatherings with Friends and Family: More than three times a week Attends Temple Services: Never Active Member of Clubs or Organizations: No Attends Club or Organization Meetings: Never Marital Status: Intimate Partner Violence: Not At Risk (12/31/2023) Received from [facility] Humiliation, Afraid, Rape, and Kick questionnaire Fear of Current or Ex-Partner: No Emotionally Abused: No Physically Abused: No Sexually Abused: No Housing Stability: Patient Unable To Answer (10/02/2024) Received from [facility] Housing Stability Vital Sign Unable to Pay for Housing in the Last Year: Patient unable to answer Homeless in the Last Year: Patient unable to answer [2] Family History Problem Relation Name Age of Onset Other (bowel obstruction) Mother Brain cancer Father documented in [facility]Ge[facility] Work Phone: 1([phone]) 329-531105-16-2025 Instructions* Patient Instructions* Sy Dickinson LPN - 10/08/2024 3:00 PM EDT Images from the original note were not included. Vascular surgery needs to tell us when he can come off Plavix, and for how long. Please call us as soon as you have this answer, , option #4. Pre-Procedure Patient Information You have been scheduled for: EV- ICD Implant At: [facility] With: Dr. [place] and Dr. [...] day before your scheduled procedure, please call [phone]. 3. Please bring a current list of [...] any questions, please contact the office at [phone]. Follow up 1 week after for a wound care check appointment documented in this [facility] Work Phone: [phone]) 788-662605-13-2025 History of Present illness Narrative* Jessy Wayne RN - 10/05/2024 1:34 PM EDT AVS reviewed with and patient. All questions answered. Leg bag attached to zapien. IV removed, no complications. Waiting for meds to bed to be delivered. * Servando Hall MD - 10/05/2024 9:[address] [facility] PROGRESS NOTE 10/05/2024 9:55 AM Name: Alex Anderson Acct: [id number] Room: Day: 3 Admit Date: 10/02/2024 10:30 [...] are in and will be reviewed from [place]. Brief History: 78 yo male admitted to [...] COPD, anemia, AAA post stent, hypothyroidism. Per [facility] records patient was brought in to [place] ED by due to increasing delusions, hallucinations [...] screening positive for tricyclic antidepressant. Transferred to [facility] for psychiatric assessment and potentially [facility] admission following medical clearance. On admit, patient is ANO x 2, knows his name date, birthday, president. Able to list some family members. Is aware he is in a hospital in [place]. He endorses increasing bilateral lower extremity weakness [...] - dementia versus delirium -Patient transferred from [facility] due to declining mental status and increasing delusionsand hallucinations. Per chart review patient's was increasingly concerned for the last 2 weekshe has had more hallucinations and delusions, concerned of people coming to find him. Recently obtained a pocket knife that she is unsure how he got. Per chart review endorsed some suicidal ideation -CT head in ED [place] 10/01 reviewed no acute intracranial abnormality -UDS 10/01 [place] positive for tricyclic's -On admit patient denies [...] frequency with urination - In ED at [place], urinalysis small leukocyte esterase moderate bacteria 10/01; BUN 26 creatinine 2.01 -> creatinine 1.9 -[place] urine culture received 10/05. Positive for Klebsiella [...] review unsure if it was replaced at [place] A-fib - Patient had some runs of [...] asdocumented by the resident. Urine culture from [facility] growing Klebsiella and Enterobacter sensitive to Cipro. Chronic Zapien. Follow-up urology as outpatient. CT head from [place], negative. Varicose veins, vascular surgery follow-up as outpatient. Hypokalemia- replaced * Jessy Wayne RN - 10/05/2024 9:21 AM EDT Oral potassium replaced. * Aristeo Gallardo [facility] - 10/05/2024 8:07 AM EDT Pharmacy Note [...] Daily PT/INR while inpatient. Satish Gallardo PharmD, [facility] 10/05/2024 8:05 AM * Leticia John OTR/Romina - 10/04/2024 2:41 PM EDT [facility] OCCUPATIONAL THERAPY MISSED TREATMENT NOTE INPATIENT Date: 10/04/24 Patient Name: Alex Anderson Room: : 1945 (78 y.o.) Gender: male REASON FOR MISSED TREATMENT: 10/04/24 - Other - Palliative Care MECHANICAL ENGINEERING DRAFTSPERSON in room initially. Checked back at 1430, with pt working with physical therapy. PCT reported needing to get EKG once pt has completed PT. OT will continue to follow and check back as time permits. 1352; 1430 * Filemon Cerda RN - 10/04/2024 12:10 PM EDT Patient Alert and Oriented x 4, per Jessy CHAN. Bedside mine safety director removed, Telesitter placedat bedside. * Jessy Wayne [...] periodically make illogical statements in response to senior mortgage underwriter's assessment questions and thought process was somewhat [...] Patient initially presented to the ED from [facility]. He was presented to [facility] for potential admission, but declined as his symptoms were consistent with delirium. Noted he was placed perry application for emergency admission by [place] ED secondary to patient'sbehavior at home. per [...] like him to see Dr. Mcarthur in [place]. Per review of documentation, patient medications managed [...] psychosocial and environmental stressors PLAN Admission to [facility] is not warranted No medication changes today [...] agree with assessment. The patient was seen klwd-ut-qbgd. The patient is pleasant on approach. He [...] Hall MD - 10/04/2024 9:[address] [facility] PROGRESS NOTE 10/04/2024 9:40 AM Name: Alex Anderson Acct: [id number] Room: IP Day: 2 Admit Date: 10/02/2024 [...] COPD, anemia, AAA post stent, hypothyroidism. Per [facility] records patient was brought in to [place] ED by due to increasing delusions, hallucinations [...] screening positive for tricyclic antidepressant. Transferred to [facility] for psychiatric assessment and potentially [facility] admission following medical clearance. On admit, patient is ANO x 2, knows his name date, birthday, president. Able to list some family members. Is aware he is in a hospital in [place]. He endorses increasing bilateral lower extremity weakness [...] - dementia versus delirium -Patient transferred from [facility] due to declining mental status and increasing delusionsand hallucinations. Per chart review patient's was increasingly concerned for the last 2 weekshe has had more hallucinations and delusions, concerned of people coming to find him. Recently obtained a pocket knife that she is unsure how he got. Per chart review endorsed some suicidal ideation -CT head in ED [place] 10/01 reviewed no acute intracranial abnormality -UDS 10/01 [place] positive for tricyclic's -On admit patient denies [...] frequency with urination - In ED at [place], urinalysis small leukocyte esterase moderate bacteria 10/01; [...] review unsure if it was replaced at [place] A-fib - Patient had some runs of [...] as outpatient Neuro consulted * Constantin Goodwin, [facility] - 10/04/2024 9:09 AM EDT Pharmacy Note [...] PT/INR while inpatient. Constantin Goodwin PharmD. [facility] 10/04/2024 9:09 AM * Heather Solis, SKY LINE YARDER - SAP BUSINESS ANALYST - 10/03/2024 5:44 PM EDT Department of [...] periodically make illogical statements in response to senior mortgage underwriter's assessment questions and thought process was somewhat [...] to not meet criteria for admission to [facility] due to delirium and is not experiencing [...] Patient initially presented to the ED from [facility]. He was presented to [facility] for potential admission, but declined as his symptoms were consistent with delirium. Noted he was placed perry application for emergency admission by [place] ED secondary to patient'sbehavior at home. per [...] like him to see Dr. Mcarthur in [place]. Per review of documentation, patient medications managed [...] mEq, 40 mEq, Oral, PRN OR potassium lphjblym83 mEq/100 mL IVPB (Peripheral Line), 10 mEq, [...] psychosocial and environmental stressors PLAN Admission to [facility] is not warranted No medication changes today [...] - 10/03/2024 3:16 PM EDT Physical Therapy [facility] Physical Therapy Evaluation Date: 10/03/24 Patient Name: Alex Anderson Room: Account: [id number] : 1945 (78 y.o.) Gender: male Discharge [...] of pneumonia, UTI, altered mental status. Per [facility] records patient was brought in to [place] ED by due to increasing delusions, hallucinations [...] screening positive for tricyclic antidepressant. Transferred to [facility] for psychiatric assessment and potentially [facility] admission following medical clearance. Referral Date : [...] Unable to demonstrate understanding Functional Outcome Measures [facility] Basic Mobility - Inpatient How much help [...] climbing 3-5 steps with a railing?: Total [facility] Inpatient Mobility Raw Score : 16 [facility] Inpatient T-Scale Score : 40.78 Mobility Inpatient [facility] 0-100% Score: 54.16 Mobility Inpatient [facility] G-Code Modifier : CK Goals Patient Goals [...] 2:03 PM EDT New consult to Neurology. Recruitment And Outreach Assistant notifed Moris Barragan MD. * Mar Gonzalez RN - 10/03/2024 9:03 AM EDT Patient potassium is low. Potassium oral 40mEq was given per PRN orders * Servando Hall MD - 10/03/2024 8:[address] PROGRESS NOTE 10/03/2024 9:59 AM Name: Alex Anderson Acct: [id number] Room: Day: 1 Admit Date: 10/02/2024 10:30 [...] COPD, anemia, AAA post stent, hypothyroidism. Per [facility] records patient was brought in to [place] ED by due to increasing delusions, hallucinations [...] screening positive for tricyclic antidepressant. Transferred to [facility] for psychiatric assessment and potentially [facility] admission following medical clearance. On admit, patient is ANO x 2, knows his name date, birthday, president. Able to list some family members. Is aware he is in a hospital in [place]. He endorses increasing bilateral lower extremity weakness [...] - dementia versus delirium -Patient transferred from [facility] due to declining mental status and increasing delusionsand hallucinations. Per chart review patient's was increasingly concerned for the last 2 weekshe has had more hallucinations and delusions, concerned of people coming to find him. Recently obtained a pocket knife that she is unsure how he got. Per chart review endorsed some suicidal ideation -CT head in ED [place] 10/01 reviewed no acute intracranial abnormality -UDS 10/01 [place] positive for tricyclic's -On admit patient denies [...] frequency with urination - In ED at [place], urinalysis small leukocyte esterase moderate bacteria 10/01; [...] AM EDT New consult for Palliative Care. Recruitment And Outreach Assistant notified Heather Romo NP. * Aidee Kearns [...] Daily PT/INR while inpatient. Aidee Kearns, PharmD, [facility] * Gi Berrios RN - 10/02/2024 9:00 PM EDT RN attempted to finish patients admission questions, patient was unable to answer. * Tamy Palacios RN - 10/02/2024 6:03 PM EDT Recruitment And Outreach Assistant notified Palliative care of new consult placed. [...] at 1.9 (goal 2-3). Patient follows with [place] [facility]. Patient's first time at [facility], sparse documentation in [facility]. Documentation from transferring hospital states patient is on coumadin 2 mg daily. Will schedule coumadin 2 mg tonight, has not received medications since last night. Daily PT/INR while inpatient. Thank you for the consult. Will continue to follow. Aidee Kearns, PharmD, [facility] * Cesar Melendze - 10/02/2024 11:43 AM EDT New consult to Urology. Recruitment And Outreach Assistant notified Goldy Garland MD. * Cesar Melendez - 10/02/2024 11:41 AM EDT New consult to Psychiatry. Recruitment And Outreach Assistant notified Froy Razo MD. documented in this encounterBon [facility] Discharge instructions* Discharge Instructions* Waqar [...] (CD rom and photo on phone) from [facility] with you but it is also uploaded in media in your chart at [facility] - Follow-up with your vascular surgeon [...] Primary Emergency Contact: Estella Anderson Relation: Spouse Bad Credit Collector needed? No Secondary Emergency Contact: [place] Anderson [...] Assisted Dressing Assisted Toileting Assisted Feeding Independent Orthodontist Vice President Assisted Med Delivery whole Wound Care Documentation [...] cane, walker, and bath bench Other Treatments: Longterm assessment and monitoring. Medication education and monitoring per protocol. Patient's personal belongings (please select all that are sent with patient): Glasses RN SIGNATURE: CASE MANAGEMENT/SOCIAL WORK SECTION Inpatient Status Date: 10/02/2024 Readmission Risk Assessment Score: [facility] RISK OF UNPLANNED READMISSION 2.0 13.1 Total Score Discharging to Facility/ [facility] Address: [address] [place] [address] Dialysis Facility (if applicable) Name: Address: Dialysis Schedule: Phone: Fax: Export Clerk/Buttonhole Tacker signature: PHYSICIAN SECTION Prognosis: Fair Condition at [...] H&P PHYSICIAN SIGNATURE: documented in this encounterBon [facility]04[facility] History of Present illness Narrative* Stanley Emesron MD - 09/21/2024 2:15 PM EDT Images from the original note were not included. Patient ID: Alex Anderson is a 78 y.o. male who presents for: Pt reported to his [facility] Nurse yesterday that pt has been having issues with increased hallucinations and cognitive impairment. Results were looked up in [facility] and there are no recent UA's done [...] a gentle exercise program. documented in this encounterCox Walnut [id number] History of Present illness Narrative* Bruce M [...] are going to be made at [facility]. He will be communicated to through the office in the area for the arrangements to be made. His present medical therapy was left unchanged. Assessment/recommendations: 1-history of non-ST elevation myocardial infarction leading to LAD stenting December 2023 at [facility], continue Plavix, high intensity statin, patient is not on aspirin since he is also on Coumadin 2-post FL paroxysmal atrial fibrillation, currently back in sinus [...] recommended and will be arranged at [facility]. 5- status post AAA stenting with EVAR 2022 with no complications. 6- chronic kidney disease stage IIIb. Patient's follows with nephrology, basic metabolic profile isordered 7-hyperlipidemia on maximal dose atorvastatin 8- history of TIA, no recurrences 9- slight overweight, encouragement provided for prudent diet and daily activities 10-colon polyp large enough to require surgery, he is refusing follow-up at the [facility] 11- history of bladder cancer followed by [...] Metabolic Panel 2. 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Basic Metabolic Panel Basic [...] exam, discussion and plan. documented in this [facility] Work Phone: 1(745) 453-257004-18-2025 Instructions* Patient Instructions* Ruth Mojica LPN - [...] 03/29 visit as scheduled. documented in this encounterGeorgetown [facility] Work Phone: 1(823) 122-667603-20-2025 Telephone encounter Note* Telephone Encounter - Stanley Emerson MD - 08/12/2024 2:19 PM EDT Entered in error [facility] [id number] Miscellaneous Notes* Telephone Encounter - Stanley Emesron MD - 08/12/2024 2:19 PM EDT Entered in error documented in this encounterCox Walnut [id number] Evaluation note* Diagnosis Onset Date Resolution Status Admit Date Abdominal aortic aneurysm without ruptur e acuteMarch 2024 10:[facility] 2024 10:25amCHF (congestive heart failure)[facility] 2024 10:25amChronic kidney disease, stage 3bacute August 11, 2024 10:25amHyperlipidemiaacuteMar 2024 10:25amHypertensive nephropathyacuteMer[facility] 2024 10:25amIron deficiencyacuteMar 2024 10:25amObstructive nephropathyacuteMer[facility] 2024 10:25am [facility] Work Phone: 1(284) 811-511103-19-2025 Evaluation note* Diagnosis Onset Date Resolution Status Admit Date Abdominal aortic aneurysm without ruptur e acuteMarch 2024 10:25amAnemiaacuteMarch 2024 10:25amCHF (congestive heart failure)acuteMarch 2024 10:25amChronic kidney disease, stage 3bacute August 11, 2024 10:25amHyperlipidemiaacuteMarch 2024 10:25amHypertensive nephropathyacuteMarch 2024 10:25amIron deficiencyacuteMarch 2024 10:25amObstructive nephropathyacuteMarch 2024 10:25amAneurysm of left popliteal arteryacuteMay 2024 9:09am [facility] Work Phone: 1(527) 210-582903-19-2025 Evaluation note* Diagnosis Onset Date Resolution Status Admit Date [facility]dominal [facility] 10:25amAnemiaacuteMarch 2024 10:25amCHF (congestive heart failure)[facility] 2024 10:25amChronic kidney disease, stage 3bacute August 11, 2024 10:25amHyperlipidemiaacuteMarch 2024 10:25amHypertensive nephropathyacuteMarch 2024 10:25amIron deficiencyacuteVirt[facility] 2024 10:25amObstructive nephropathyacute[facility] 2024 10:25amAneurysm of left popliteal arteryacuteMay 2024 9:09amAbdominal aortic aneurysm without ruptureacuteJune 2024 3:51pmAnemiaacuteJune 2024 3:51pmCHF (congestive heart failure)acuteJune 2024 3:51pmChronic kidney disease, stage 3bacuteJune 2024 3:51pmHyperlipidemiaacuteJune 2024 3:51pm Hypertensive nephropathyacuteJune 2024 3:51pmIron deficiencyacuteJune 2024 3:51pmObstructive nephropathyacuteJune 2024 3:51pm [facility] Work Phone: 1(704) 284-445503-06-2025 History of Present illness Narrative* Teo Al [...] days. He was against going to the [facility] to follow-up on colonic polyp as was suggested by his local kitchen designer. He reports no syncope or presyncope his [...] leading to LAD stenting December 2023 at [facility], continue Plavix, high intensity statin, patient is not on aspirin since he is also on Coumadin 2-post FL paroxysmal atrial fibrillation, currently back in sinus [...] surgery, he is refusing follow-up at the [facility] 11- history of bladder cancer followed by [...] tablet daily in the evening. Follow [facility] [place]. Patient will take coumadin and eliquis together for 3 days only, Disp: 14 tablet, Rfl: 0 Assessment/Plan 1. Cardiomyopathy, ischemic Follow Up In Cardiology 2. Paroxysmal atrial fibrillation (Multi) 3. High risk medication use 4. 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 5. S/P PTCA [...] exam, discussion and plan. documented in this encounterGeorgetown Behavioral Hospital Work Phone: 1(433) 220-991003-06-2025 Instructions* Patient Instructions* Pebbles Arcos LPN - [...] through Care Everywhere. * Heart Healthy Diet (Scottish) documented in this encounterGeorgetown Behavioral Hospital Work Phone: 1(388) 619-177102-20-2025 Hospital Discharge instructions Patient Education 07/15/2024 14:05:29 [...] cells. Follow these instructions at home: Take tznd-sdd-tsirrks and prescription medicines only as told by [...] is important. Where to find more information [employer] Cancer Society (ACS): cancer.org National Cancer Deaver (NCI): cancer.gov Contact a health care provider [...] provider. Document Revised: 04/22/2022 Document Reviewed: 04/22/2022 [employer] Patient Education 2023 IQzone. Follow Up Care 06/01/2024 11:03:36 With:HEATHER OMALLEY PA-C, URL Address: [address] [place] [place] [address] When:Within 1 Month(s) [facility] 02-20-2025 NotePatient Education Oncology Bladder Cancer [...] Follow these instructions at home: ??? Take pewq-bpj-dgqvfro and prescription medicines only as told by [...] important. Where to find more information ??? [employer] Cancer Society (ACS): cancer.org ??? National Cancer Deaver (NCI): cancer.gov Contact a health care provider [...] This information is n (more content not included)...[facility] 06-07-2024 NotePatient Education Urology Hematuria, Adult [...] these instructions at home: Medicines ??? Take thyy-dot-jqxcdaw and prescription medicines only as told by [...] the blood stops without treatment. ??? Take cuxf-jqa-sdmamoc and prescription medicines only as told by your health care provider. ??? Drink enough fluid to keep your urine pale yellow. This information is not intended to replace advice given to you by your health care provider. Make sure you discuss any questions you have with your health care provider. Document Revised: 01/10/2021 Document Reviewed: 01/10/2021 [employer] Patient Education ? 2023 IQzone.[facility] 05-21-2024 History of Present illness Narrative* [...] described. They are considering consultation at the [facility] for large colonic polyp that might need [...] leading to LAD stenting December 2023 at [facility], continue Plavix, high intensity statin, patient is not on aspirin since he is also on Coumadin 2-post FL paroxysmal atrial fibrillation, currently back in sinus [...] he is following for that at the [facility]. 11- history of bladder cancer followed by [...] tablet daily in the evening. Follow [facility]. Patient will take coumadin and [...] Stimulating Hormone 3. 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 4. S/P PTCA [...] exam, discussion and plan. documented in this [facility] Work Phone: 1(982) 370-525012-27-2024 Instructions* Patient Instructions* Pebbles Arcos LPN - [...] through Care Everywhere. * Heart Healthy Diet (Scottish) documented in this [facility] Work Phone: 1(357) 868-327412-19-2024 History of Present illness Narrative* Stanley Emerson [...] Practical Nurse (Family Medicine) [facility] Medicare Annual Visit Over the past [...] you have a medical power of assistant county attorney?: No Objective : BP 122/74 Pulse [...] a living will, durable power of assistant county attorney for healthcare, or other advanced directives. [...] on May 29, 2024 documented in this encounterCox Walnut LawnYoynuklvra41-09-0019 History of Present illness Narrative* Stanley Emerson [...] to encourage good nutrition. documented in this encounterCox Walnut LawnJysmbumlak01-18-7433 Hospital Discharge instructions Patient Education 04/06/2024 11:31:42 [...] provider. Document Revised: 08/01/2021 Document Reviewed: 04/27/2021 [employer] Patient Education 2021 IQzone. 04/06/2024 11:28:52 Cancer Screening for Males Cancer [...] if anything looks unusual. Males with a jujlwt-qgfg-gntdtx risk for skin cancer may want to see a project specialist (automotive parts clerk) for an annual body check. Where to find more information [employer] Cancer Society: cancer.org Centers for Disease Control and Prevention: cdc.gov National Cancer Deaver: cancer.gov Contact a health care provider if: [...] provider. Document Revised: 05/20/2023 Document Reviewed: 12/02/2022 [employer] Patient Education 2023 IQzone. Follow Up Care 02/25/2024 15:13:08 With:ABRIL CASILLAS, Katia Macias, URL Address: [facility] [address] [place] [address]- When: Unknown [facility] 11-12-2024 NotePatient Education Oncology Cancer Screening [...] if anything looks unusual. Males with a sbrgsp-jndq-xsxleu risk for skin cancer may want to see a project specialist (dermatologi (more content not included)...[facility]10-24-2024 History of Present illness Narrative* Stanley [...] further evaluation or treatment. documented in this encounterCox Walnut LawnTayskqhdic18-69-7949 History of Present illness Narrative* Leanne Soriano [...] m (6' 2 ) documented in this encounterGeorgetown Behavioral Hospital Work Phone: 1(626) 851-934409-24-2024 History of Present illness Narrative* Stanley Emerson [...] 1 each; Refill: 0 documented in this encounterCox Walnut LawnIfhlmseedg14-89-1114 History of Present illness Narrative* Teo Al MD - 02/10/2024 9:20 AM EDT Subjective Alex Anderson is a 78 y.o. male Chief Complaint Hospital Follow-up HPI 78-year-old white male who recent underwent LAD stenting for anterior STEMI at [facility] by Dr. Pruett. He subsequently [...] leading to LAD stenting December 2023 at [facility], continue Brilinta, high intensity statin, patient is not on aspirin since he is also on Eliquis 2-post FL paroxysmal atrial fibrillation, currently back in sinus [...] medication use 3. 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 4. S/P PTCA [...] exam, discussion and plan. documented in this encounterGeorgetown Behavioral Hospital Work Phone: 1(537) 898-129609-17-2024 Instructions* Patient Instructions* Pebbles Arcos LPN - [...] through Care Everywhere. * Heart Healthy Diet (Scottish) documented in this encounterGeorgetown Behavioral Hospital Work Phone: 1(666) 981-153808-30-2024 Consult note Author [facility]io [facility] January 23, 2024 12:43pmNote Date/TimeAugust 2023 12:29pm[place] [address] Physiatry (Rehab) Consult Note Signed Patient: Alex Anderson MR#: [id number] : 1945 Acct:[id number] Age/Sex: 78 / M Adm Date: 4 Loc: Room: [address] [place] [address] Type: ADM IN Attending Dr: Nas Pruett [...] post mid LAD stenting for ST elevation FL (01/15) course complicated by hypotension, atrial fibrillation, [...] Appearance Clear Urine pH 5.5 Ur Specific [place] 1.022 Urine Protein Trace H Urine Glucose [...] post mid LAD stenting for ST elevation FL (01/15) course complicated by hypotension, atrial fibrillation, [...] would recommend SNF closer to home in [place]. I understand this may be a discrepancy [...] chart, including current orders, allied health and exchange underwriting consultant notes, labs/imaging and performed diza elements of exam and I formulated the plan of care and facilitated the medical decision making. I completed a substantive portion of this encounter, the medical decision making portion of this note in its entirety, including Allied health note review, nursing note review, exchange underwriting consultant note review, discussion with nursing and case management, and more than 50% of my time was spent on counseling and coordination of care, time spent 40 minutes Documented By: Rogelio Rai MD 01/23/24 1207 Signed By: <Electronically signed by Rogelio Rai MD> 01/23/[address] [facility] Work Phone: 1(657) 727-858408-30-2024 Progress note Author Isaac Edwards [facility] January 23, 2024 12:01pmNote Date/TimeAugust 2023 11:59[place] [address] Progress Note Signed Patient: Alex Anderson MR#: [id number] : 1945 Acct:[id number] Age/Sex: 78 / M Adm Date: 4 Loc: 4 Room: 3X2624-3 Type: ADM IN Attending Dr: Nas Pruett [...] signed by MD Isaac Edwards> 01/23/[address] [facility] Work Phone: 1(162) 724-895608-30-2024 Consult note Author Rob Almazan [facility] January 23, 2024 3:21pmNote Date/TimeAugust 2023 8:34[place] [address] Hospitalist Consult Note Signed Patient: Alex Anderson MR#: [id number] : 1945 Acct:[id number] Age/Sex: 78 / M Adm Date: 4 Loc: Room: [address] [place] [address] Type: ADM IN Attending Dr: Nas Pruett [...] is noted above in HPI [facility] Medical History Zapien catheter in [...] % (Auto) 64.3, Lymph % (Auto) 15.6, Brooke % (Auto) 16.0, Eos % (Auto) 3.6, Baso % (Auto) 0.5, Nucleat RBC Rel Count 0.1, Neut # (Auto) 5.7, Lymph # (Auto) 1.4, Brooke # (Auto) 1.4 H, Eos # (Auto) [...] <Electronically signed by Rob Almazan MD> 01/23/[address] [facility] Work Phone: 1(818) 278-247308-30-2024 Progress note Author Jakob Lomax [facility] January 23, 2024 12:26amNote Date/TimeAugust 2023 12:[address]am[address] [address] Progress Note Signed Patient: Alex Anderson MR#: [id number] : 1945 Acct:[id number] Age/Sex: 78 / M Adm Date: 4 Loc: Room: [address] [place] [address] Type: ADM IN Attending Dr: Nas Pruett DO Copies to: ~ Date of Service: 01/22/2024 Progress Narrative Note PROGRESS NOTE Progress Note: Patient had a security alert called earlier this evening after getting aggressive with PCT, I responded to the security alert and received full report from bedside and charge account authorizer regarding the events.patient did fall but only [...] will plan to use Haldol 5mg IM, charge account authorizer aware to notify me if needed. Formal consult to come tomorrow Documented By: Jakob Lomax DO 01/23/2421 Signed By: <Electronically signed by Jakob Lomax DO> 01/23/2425 [facility] Work Phone: 1(713) 456-291808-29-2024 Progress note Author Teo Al [facility] January 22, 2024 2:01pmNote Date/TimeAugust 2023 2:01pm[address] [address] Cardiology Progress Note Signed Patient: Alex Anderson MR#: [id number] : 1945 Acct:[id number] Age/Sex: 78 / M Adm Date: 4 Loc: 4 Room: [address] [place] [address] Type: ADM IN Attending Dr: Nas Pruett [...] need toby found as the next step. electro mechanical engineer and PT will be consulted Exam [...] heart failure Documented By: Teo Al MD, [facility] 4 1357 Signed By: <Electronically signed by [facility] CAMPUSQuynh Al> 01/22/[address] [facility] Work Phone: 1(226) 788-215308-29-2024 Progress note Author Isaac Edwards [facility] January 22, 2024 1:58pmNote Date/TimeAugust 2023 1:58pmJoseph [place] [id number] Pulmonology Progress Note Signed Patient: Alex Anderson MR#: [id number] : 1945 Acct:[id number] Age/Sex: 78 / M Adm Date: 4 Loc: 4P Room: [address] [place] [address] Type: ADM IN Attending Dr: Nas Pruett [...] signed by MD Isaac Edwards> 01/22/[address] [facility] Work Phone: 1(293) 491-631208-28-2024 Progress note Author Teo Al [facility] January 21, 2024 5:24pmNote Date/TimeAugust 2023 5:24pm[place] [address] Cardiology Progress Note Signed Patient: Alex Anderson MR#: [id number] : 1945 Acct:[id number] Age/Sex: 78 / M Adm Date: 4 Loc: 4 Room: [address] [place] [address] Type: ADM IN Attending Dr: Nas Pruett [...] % (Auto) 64.3 Lymph % (Auto) 15.6 Brooke % (Auto) 16.0 Eos % (Auto) 3.6 Baso % (Auto) 0.5 Nucleat RBC Rel Count 0.1 Neut # (Auto) 5.7 Lymph # (Auto) 1.4 Brooke # (Auto) 1.4 H Eos # (Auto) [...] heart failure Documented By: Teo Al MD, [facility] 4 1722 Signed By: <Electronically signed by [facility] Teo Al> 01/21/[address] [facility] Work Phone: 1(765) 695-892708-28-2024 Progress note Author Isaac Edwards [facility] January 21, 2024 11:45amNote Date/TimeAugust 2023 11:31[place] [address] Pulmonology Progress Note Signed Patient: Alex Anderson MR#: [id number] : 1945 Acct:[id number] Age/Sex: 78 / M Adm Date: 4 Loc: Room: [address] [place] [address] Type: ADM IN Attending Dr: Nas Pruett [...] perspective. Documented By: Isaac Edwards MD 4 1126 Signed By: <Electronically signed by MD Isaac Edwards> 01/21/[address] [facility] Work Phone: 1(262) 521-694708-27-2024 Progress note Author Teo Al [facility] January 20, 2024 3:58pmNote Date/TimeAugust 2023 3:[address]pm[address] [address] Cardiology Progress Note Signed Patient: Alex Anderson MR#: [id number] : 1945 Acct:[id number] Age/Sex: 78 / M Adm Date: 4 Loc: Room: [address] [place] [address] Type: ADM IN Attending Dr: Nas Pruett [...] % (Auto) 71.9 Lymph % (Auto) 11.8 Brooke % (Auto) 14.3 Eos % (Auto) 1.7 Baso % (Auto) 0.3 Nucleat RBC Rel Count 0.0 Neut # (Auto) 6.8 Lymph # (Auto) 1.1 Brooke # (Auto) 1.4 H Eos # (Auto) [...] heart failure Documented By: Teo Al MD, [facility] 4 1555 Signed By: <Electronically signed by MD [place] Al> 01/20/[address] [facility] Work Phone: 1(191) 454-212908-27-2024 Progress note Author Isaac Edwards [facility] January 20, 2024 12:59pmNote Date/TimeAugust 2023 8:53[place] [address] Pulmonology Progress Note Signed Patient: Alex Anderson MR#: [id number] : 1945 Acct:[id number] Age/Sex: 78 / M Adm Date: 4 Loc: Room: [address] [place] [address] Type: ADM IN Attending Dr: Nas Pruett [...] needed. Documented By: Isaac Edwards MD 4 [id number] Signed By: <Electronically signed by MD Isaac Edwards> 01/20/[address] [facility] Work Phone: 1(639) 880-295108-26-2024 Progress note Author Isaac Edwards [facility] January 19, 2024 1:20pmNote Date/TimeAugust 2023 9:06[place], [place] [address] Pulmonology Progress Note Signed with Addenda Patient: Alex Anderson MR#: [id number] : 1945 Acct:[id number] Age/Sex: 78 / M Adm Date: 4 Loc: Room: [address] [place] [address] Type: ADM IN Attending Dr: Nas Pruett [...] <Electronically signed by MD Isaac Edwards> 01/19/24 [facility] Work Phone: 1(359) 878-128008-26-2024 Progress note Author Teo Al [facility] January 19, 2024 12:11pmNote Date/TimeAugust 2023 12:11[place] [address] Cardiology Progress Note Signed Patient: Alex Anderson MR#: [id number] : 1945 Acct:[id number] Age/Sex: 78 / M Adm Date: 4 Loc: Room: [address] [place] [address] Type: ADM IN Attending Dr: Nas Pruett [...] % (Auto) 78.5 Lymph % (Auto) 8.8 Brooke % (Auto) 11.9 Eos % (Auto) 0.4 Baso % (Auto) 0.4 Nucleat RBC Rel Count 0.1 Neut # (Auto) 8.6 H Lymph # (Auto) 1.0 Brooke # (Auto) 1.3 H Eos # (Auto) [...] heart failure Documented By: Teo Al MD, [facility] 4 [id number] Signed By: <Electronically signed by MD [place] Al> 01/19/[address] [facility] Work Phone: 1(637) 975-265808-25-2024 Progress note Author Justina Lara [facility] January 18, 2024 3:10pmNote Date/TimeAugust 2023 3:10[place] [address] Pulmonology Progress Note Signed Patient: Alex Anderson MR#: [id number] : 1945 Acct:[id number] Age/Sex: 78 / M Adm Date: 4 Loc: Room: [address] [place] [address] Type: ADM IN Attending Dr: Nas Pruett [...] managing post PCI/stent in LAD for acute FL. He is on beta- maldonado, antiplatelets, statin, [...] signed by Justina Lara MD> 01/18/[address] [facility] Work Phone: 1(742) 693-108108-25-2024 Progress note Author Ana Castro [facility] January 18, 2024 12:49pmNote Date/TimeAugust 2023 12:50[place] [address] Cardiology Progress Note Signed Patient: Alex Anderson MR#: [id number] : 1945 Acct:[id number] Age/Sex: 78 / M Adm Date: 4 Loc: Room: [address] [place] [address] Type: ADM IN Attending Dr: aNs Pruett DO Copies to: ~ Date of [...] MPV Neut % (Auto) Lymph % (Auto) Brooke % (Auto) Eos % (Auto) Baso % (Auto) Nucleat RBC Rel Count Neut # (Auto) Lymph # (Auto) Brooke # (Auto) Eos # (Auto) Baso # (Auto) PHA Creatinine Clear Sodium Potassium Chloride Carbon Dioxide Anion Gap BUN Creatinine Est GFR (CKD-EPI) Glucose POC Glucose 115 126 Calcium Urine Color Light-yellow Urine Appearance Cloudy A Urine pH 6.0 Ur Specific [place] 1.018 Urine Protein Trace H Urine Glucose [...] % (Auto) 75.1 Lymph % (Auto) 11.5 Brooke % (Auto) 12.8 Eos % (Auto) 0.2 Baso % (Auto) 0.4 Nucleat RBC Rel Count 0.0 Neut # (Auto) 9.1 H Lymph # (Auto) 1.4 Brooke # (Auto) 1.5 H Eos # (Auto) 0.0 Baso # (Auto) 0.0 PHA Creatinine Clear 46.65 Sodium 136 Potassium 3.7 Chloride 107 Carbon Dioxide 21.2 Anion Gap 11.5 BUN 29 H Creatinine 1.59 H Est GFR (CKD-EPI) 43.613 Glucose 125 H POC Glucose Calcium 8.7 Urine Color Urine Appearance Urine pH Ur Specific [place] Urine Protein Urine Glucose (UA) Urine Ketones [...] by MD Ana Castro> 01/18/[address] [facility] Work Phone: 1(903) 347-642708-24-2024 Progress note Author Ana Castro [facility] January 17, 2024 12:43pmNote Date/TimeAugust 2023 12:43[place] [address] Cardiology Progress Note Signed Patient: Alex Anderson MR#: [id number] : 1945 Acct:[id number] Age/Sex: 78 / M Adm Date: 4 Loc: Room: [address] [place] [address] Type: ADM IN Attending Dr: Nas Pruett [...] MPV Neut % (Auto) Lymph % (Auto) Brooke % (Auto) Eos % (Auto) Baso % (Auto) Nucleat RBC Rel Count Neut # (Auto) Lymph # (Auto) Brooke # (Auto) Eos # (Auto) Baso # (Auto) Platelet Estimate Plt Morphology Comment RBC Morphology PHA Creatinine Clear Sodium Potassium Chloride Carbon Dioxide Anion Gap BUN Creatinine Est GFR (CKD-EPI) Glucose POC Glucose POC Glucose Comment Calcium Troponin I High Sens 42335.4 H* 366275.2 H* 575917.4 H* Triglycerides Cholesterol LDL Cholesterol, Calc VLDL Cholesterol HDL Cholesterol Cholesterol/HDL Ratio 01/16/24 01/16/24 01/16/24 18:37 19:15 21:31 Corrected WBC Uncorrected WBC Count RBC Hgb Hct MCV MCH MCHC RDW Plt Count MPV Neut % (Auto) Lymph % (Auto) Brooke % (Auto) Eos % (Auto) Baso % (Auto) Nucleat RBC Rel Count Neut # (Auto) Lymph # (Auto) Brooke # (Auto) Eos # (Auto) Baso # (Auto) Platelet Estimate Plt Morphology Comment RBC Morphology PHA Creatinine Clear Sodium Potassium Chloride Carbon Dioxide Anion Gap BUN Creatinine Est GFR (CKD-EPI) Glucose POC Glucose 119 118 POC Glucose Comment Glu2: cleaned meter Calcium Troponin I High Sens 62466.2 H* Triglycerides Cholesterol LDL Cholesterol, Calc VLDL Cholesterol HDL Cholesterol Cholesterol/HDL Ratio 01/17/24 01/17/24 01/17/24 04:37 07:14 11:52 Corrected WBC 17.7 H Uncorrected WBC Count 17.7 H RBC 4.46 Hgb 12.7 L Hct 38.4 L MCV 86.1 MCH 28.4 MCHC 33.0 RDW 15.8 H Plt Count 135 L MPV 9.0 Neut % (Auto) 77.1 Lymph % (Auto) 6.9 Brooke % (Auto) 15.6 Eos % (Auto) 0.0 Baso % (Auto) 0.4 Nucleat RBC Rel Count 0.0 Neut # (Auto) 13.6 H Lymph # (Auto) 1.2 Brooke # (Auto) 2.8 H Eos # (Auto) [...] Comment Calcium 8.9 Troponin I High Sens 30391.6 H* Triglycerides 67 Cholesterol 74 L LDL [...] By: <Electronically signed by MD Ana Castro> 01/17/243 [facility] Work Phone: 1(349) 187-624908-24-2024 Progress note Author Justina Lara [facility] January 17, 2024 11:57amNote Date/TimeAugust 2023 11:54[place] [id number] Pulmonology Progress Note Signed Patient: Alex Anderson MR#: [id number] : 1945 Acct:[id number] Age/Sex: 78 / M Adm Date: 4 Loc: Room: [address] [place] [address] Type: ADM IN Attending Dr: Nas Pruett [...] managing post PCI/stent in LAD for acute FL. He is on beta- maldonado, antiplatelets, statin, [...] signed by Justina Lara MD> 01/17/[address] [facility] Work Phone: 1(513) 638-336008-23-2024 Consult note Author Justina Lara [facility] January 16, 2024 3:19pmNote Date/TimeAugust 2023 3:16[place] [address] Pulmonology Consult Note Signed Patient: Alex Anderson MR#: [id number] : 1945 Acct:[id number] Age/Sex: 78 / M Adm Date: 4 Loc: Room: [address] [place] [address] Type: REG PAC Attending Dr: Nas Pruett DO Copies to: [...] abdominal pain nausea was diagnosed with acute FL and transferred from [facility]. He underwent left heart catheterization and stent in mid LAD Review of Systems Review of Systems All other systems reviewed & are negative unless noted below or in HPI Constitutional Constitutional: Reports as per HPI Cardiovascular Cardiovascular: Reports as per HPI and Reports chest pain at rest [facility] Medical History (Updated 01/16/24 @ [...] managing post PCI/stent in LAD for acute FL. He is on beta- maldonado, antiplatelets, statin, antihypertensive medication per cardiology Monitor creatinine post cath Bronchodilators as needed for COPD Chest x-ray in a.m. DVT prophylaxis Lovenox Documented By: Justina Lara MD 01/16/24 1509 Signed By: <Electronically signed by Justina Lara MD> 01/16/24 [facility] Work Phone: 1(140) 284-496908-23-2024 History and physical note Author Nas Pruett [facility] January 16, 2024 12:53pmNote Date/TimeAugust 2023 12:45[place] [address] Cardiology H&P Signed Patient: Alex Anderson MR#: [id number] : 1945 Acct:[id number] Age/Sex: 78 / M Adm Date: 4 Loc: Room: [address] [place] [address] Type: REG SDC Attending Dr: Nas Pruett DO Copies to: MD Nas Richards DO~ Date of Service: 01/16/2024 Cardiology HPI History of Present Illness Chief complaint: Anterior STEMI HPI: Mr. Anderson is a 78 year old male transferred from [place] with acute anterior ST elevation FL; original phone call taken from outside ER attending at 09:30 AM. Patient arrived in [facility] at 1116, after attempted right femoral approachand [...] (beginning of his suspectedsymptomatology); finally went to [place] ER around 02-01 this morning whereupon he was appropriately he diagnosed, appropriate upstream therapy instituted under my direction after discussion with ER attending, and emergently transferred to [facility] for revascularization. Total 60 minutes nonprocedural critical care time were devoted to the outside ERattending and staff, Kindergarten Assistant staff, nursing staff, patient and family pre and post procedurally Review of Systems Review of Systems All other systems reviewed & are negative unless noted below or in HPI Constitutional Constitutional: Reports as per HPI Cardiovascular Cardiovascular: Reports as per HPI and Reports chest pain at rest [facility] Medical History (Updated 01/16/24 @ [...] Interpretations EKG EKG results cardiology: sinus rhythm FL, pacemaker, normal Myocardial infarction: anterior FL (acute or recent) A&P - Cardiology (1) [...] by Nas Pruett DO> 01/16/[address] [facility] Work Phone: 1(361) 946-781508-23-2024 Procedure [facility]08-23-2024 Procedure [facility]08-21-2024 Procedure [facility]05-10-2024 Hospital Discharge instructions Patient Education [...] Follow these instructions at home: Medicines Take ktkq-cyw-dtggcqf and prescription medicines only as told by [...] provider. Document Revised: 01/31/2021 Document Reviewed: 01/31/2021 [employer] Patient Education 2022 [employer]. Follow Up Care 08/15/2023 11:04:15 With:ABRIL CASILLAS, Katia Macias, URL Address: [facility] [address] , [place] [address]- [phone] When: Unknown [facility] 02-05-2024 Hospital Discharge instructions Patient Education 06/30/2023 [...] Follow these instructions at home: Medicines Take dgdq-dse-ujhultf and prescription medicines only as told by [...] provider. Document Revised: 01/31/2021 Document Reviewed: 01/31/2021 [employer] Patient Education 2022 [employer]zone. 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 6. Keep the drainage bag below [...] [address], [place] [address]- Business (1) When:06/24/2023 15:15:55 Comments:for zapien removal [facility]12-12-2023 Evaluation note* Encounter Date Diagnosis Assessment Notes Treatment Notes Treatment Clinical Notes Apr, Primary hypertension (ICD-10 - I 10) [facility] Other 11-21-2023 Evaluation note* Encounter Date Diagnosis [...] supplement. I asked the patient to continue fttz-dbm-tbddzed iron supplement once or twice daily Mar,rimary hypertension (ICD-10 - I10)BP is elevated. Will start Norvasc 5 mg PO daily. i asked the patient to monitor Bp closely with tapering steroid dose [facility] Other 10-17-2023 Hospital Discharge instructions Patient Education [...] including vitamins, herbs, eye drops, creams, and pdpz-gko-wsavkso medicines. Any problems you or family members [...] provider tells you to take them. Taking vggd-ihi-upgpbmc medicines, vitamins, herbs, and supplements. Surgery safety [...] provider. Document Revised: 02/05/2022 Document Reviewed: 02/05/2022 [employer] Patient Education 2022 [employer]zone. 03/11/2023 14:15:06 Benign Prostatic Hyperplasia Benign Prostatic [...] urethra. Follow these instructions at home: Take umfr-klx-lugkqsu and prescription medicines only as told by [...] provider. Document Revised: 11/28/2021 Document Reviewed: 11/28/2021 [employer] Patient Education 2022 [employer]zone. Follow Up Care 02/07/2023 16:01:50 With:ABRIL CASILLAS, Katia Macias, BRAULIOL Address: [facility] [address] , [place] [address]- When:Within 3 Month(s) Comments:Sched cysto/FISH/Cytol/BT check [facility] 10-17-2023 Evaluation + Plan note Diagnostic Tests Pending * UroVysion Fish and Urine Cyto ([facility]) 03/11/23 [facility]07-18-2023 Evaluation + Plan note Diagnostic Tests Pending * UroVysion Fish and Urine Cyto ([facility]) 12/10/22 [facility]07-18-2023 Hospital Discharge instructions Patient Education [...] if anything looks unusual. Men with a rpldly-rnvc-nktjzl risk for skin cancer may want to see a project specialist (automotive parts clerk) for an annual body check. What are the benefits of screening? Cancer screening is done to look for cancer in the very early stages, before it spreads and becomesharder to treat and before you would start to notice symptoms. Finding cancer early improves the chances of successful treatment. It may save your life. Where to find more information [employer]: www.cancer.org Centers for Disease Control and Prevention: www.cdc.gov National Cancer Deaver: www.cancer.gov Contact a health care provider if: [...] Document Reviewed: 04/07/2020 [employer] Patient Education 2022 IQzone. Follow Up Care 11/15/2022 14:27:10 With:ABRIL CASILLAS, Katia Macias, URL Address: [facility] [address] , [place] [address]- When: Unknown [facility] 04-26-2023 Hospital Discharge instructions Patient Education 09/18/2022 [...] cells. Follow these instructions at home: Take yfds-srj-rsmwsrb and prescription medicines only as told by [...] is important. Where to find more information [employer] (ACS): cancer.org National Cancer Deaver (NCI): cancer.gov Contact a health care provider [...] provider. Document Revised: 04/22/2022 Document Reviewed: 04/22/2022 [employer] Patient Education 2022 IQzone. Follow Up Care 08/26/2022 14:12:46 With:ABRIL CASILLSA, Katia Macias, URL Address: [facility] [address], [place] [address]- When: Unknown [facility] 04-10-2023 NoteEXAM: XR CHEST 2 V HISTORY: Pre-surgery evaluation COMPARISON: None. TECHNIQUE: PA and lateral views of the chest. FINDINGS: The cardiomediastinal silhouette is normal. No focal consolidation is identified. There is no pneumothorax. No pleural effusion is noted. The osseous structures are intact. IMPRESSION: No acute cardiopulmonary process. Electronically authenticated by: CORKY FORD Date: 2022-09-02 14:17[facility]03-29-2023 Evaluation note* Encounter Date Diagnosis Assessment Notes [...] have his bladder tumor removal as scheduled. [facility] Other 03-08-2023 Evaluation + Plan note Diagnostic Tests Pending * UroVysion Fish and Urine Cyto ([facility]) 07/31/[address] [facility] 03-08-2023 Hospital Discharge instructions Patient Education [...] including vitamins, herbs, eye drops, creams, and oodb-ltl-xvajcfu medicines. Any problems you or family members [...] provider tells you to take them. Taking jpyx-whf-ilcmqlo medicines, vitamins, herbs, and supplements. Tests You [...] 03/08/2010 Document Revised: 12/11/2018 Document Reviewed: 12/11/2018 [employer] Patient Education 2020 IQzone. Follow Up Care 07/25/2022 10:56:51 With:ABRIL CASILLAS, Katia Macias, URL Address: [facility] [address] , [place] [address]- When: Unknown [facility] 03-02-2023 Evaluation note* Encounter Date Diagnosis [...] some bladder issues. I did call the [employer]. The device is compatible up to 3 Mgagi for MRI. I explained this to the family and the patie nt. Jul,Other specified postprocedural states (ICD-10 - Z98.890) Jul,ersonal history of other diseases of the circulatory system (ICD-10 - Z86.79) [facility] Other [facility] Evaluation note* Encounter Date Diagnosis Assessment [...] plan to do this percutaneously under MAC. [facility] Other 01-17-2023 Hospital Discharge instructions Patient Education [...] including vitamins, herbs, eye drops, creams, and dcxj-qyo-ltpdouo medicines. Any problems you or family members [...] provider tells you to take them. ?Taking gnsf-tjy-zzlgumc medicines, vitamins, herbs, and supplements. Follow instructions [...] Follow these instructions at home: Medicines Take pgkc-qqc-jdqbphj and prescription medicines only as told by [...] 05/09/2001 Document Revised: 05/04/2019 Document Reviewed: 05/04/2019 [employer] Patient Education 2020 [employer] Follow Up Care 05/22/2022 13:37:28 With:[facility] Address: [address] [place] [address] Business (1) When: Unknown Comments:our furnace clerk will be contacting you for follow-up [facility] 01-12-2023 Evaluation note* Encounter Date Diagnosis [...] to proceed all his questions were addressed. [facility] Other 01-10-2023 Evaluation note* Encounter Date Diagnosis [...] (ICD-10 - E78.5) Patient is on statin [employer] Other Discharge summary Author Teo Al [facility] January 23, 2024 3:52pmNote Date/TimeAugust 2023 3:52[place] [address] Discharge Summary Signed Patient: Alex Anderson MR#: [id number] : 1945 Acct:[id number] Age/Sex: 78 / M Adm Date: 4 Loc: Room: [address] [place] [address]: Nas Pruett DO Copies to: [...] Course Hospital course: Patient was transferred from [facility] emergency department with anterior ST elevation myocardial infarction and was taken straight to the [facility] by Dr. Pruett and underwent urgent PCI [...] doctor or pharmacist, without first calling the bucket operator who implanted the stent. If you [...] weight lifting, stair steppers, etc. until the bucket operator approves these activities. Check with the bucket operator on your first follow-up visit. CALL YOUR MOLASSES AND CARAMEL OPERATOR: -If bleeding should occur from the catheter insertion site- apply pressure to the site then immediately call us. -Report any fever, redness, drainage, increased swelling, or firmness at the catheter insertion site. Some bruising or slight swelling may be present at thetime of discharge. -Should arm or leg become cold, numb, white, or blue, contact the bucket operator immediately. -IF you should experience episodes [...] Cardiopulmonary Rehabilitation program is recommended. The attending bucket operator or a nurse clinician should provide you with specificinstructions regarding activity, diet, medications, and further follow up for you. Follow the medication instructions provided on your discharge. If the dosages and instructions on this sheet differ from the dosage and instructions on the bottle, follow the instructions on the bottle. [facility] is not responsible for incorrect prescription [...] Appearance Clear, Urine pH 5.5, Ur Specific [place] 1.022, Urine Protein Trace H, Urine Glucose (UA) Normal, Urine Ketones Negative, Urine Occult Blood 2+ H,Urine Nitrite Negative, Urine Bilirubin Negative, Urine Urobilinogen 2 H, Ur Leukocyte Esterase 4+ H, Urine RBC 20-49 H, Urine WBC 20-49 H, Urine WBC Clumps Rare H, Ur Squamous Epith CellsN/A, Urine Bacteria Rare, Hyaline Casts None, Urine Mucus Rare Documented By: Teo Al MD, [facility] 4 1548 Signed By: <Electronically signed by [facility] Teo Al> 01/23/[address] [facility] Work Phone: Evaluation + Plan note No data available for this section [facility] evaluation + Plan note Future Appointments Appointment Date:10/04/2022 10:00:00 AM Scheduled Provider: Location:[facility] Appointment Type:URO Nurse Visit [facility] Evaluation + Plan note Future Appointments Appointment Date:06/16/2023 10:00:00 AM Scheduled Provider: Location:[facility] Appointment Type:URO Nurse Visit Appointment Date:06/30/2023 01:30:00 PM Scheduled Provider:Katia SAMUELS MD Location:[facility] Appointment Type:URO Office Visit Diagnostic Tests Pending * UroVysion Fish and Urine Cyto ([facility]) [facility] Future App[facility]ments Appointment Date:06/30/2023 01:30:00 PM Scheduled Provider:Katia SAMULES MD Location:[facility] Appointment Type:URO Office Visit [facility] evaluation + Plan note Future Appointments Appointment Date:07/01/2023 08:30:00 AM Scheduled Provider: Location:[facility] Appointment Type:URO Nurse Visit [facility] evaluation + Plan note Future Appointments Appointment Date:09/09/2023 02:15:00 PM Scheduled Provider:Katia SAMUELS MD Location:[facility] Appointment Type:URO Procedure [address] [facility] Evaluation + Plan note Future Appointments Appointment Date:10/07/2023 02:45:00 PM Scheduled Provider:Katia SAMUELS MD [facility] Type:[facility]O Procedure [address] [facility] Evaluation + Plan note Future Appointments Appointment Date:10/31/2023 11:00:00 AM Scheduled Provider: Location:[facility] Appointment Type:URO Nurse Visit [facility] Evaluation + Plan note Future Appointments Appointment Date:10/31/2023 11:00:00 AM Scheduled Provider: Location:[facility] Appointment Type:URO Nurse Visit Diagnostic Tests Pending * UroVysion Fish and Urine Cyto ([facility]) [facility]03[facility] Appointment Date:11/04/2023 10:30:00 AM Scheduled Provider: Location:[facility] Appointment Type:URO Nurse Visit [facility] Evaluation + Plan note Future Appointments Appointment Date:12/02/2023 11:00:00 AM Scheduled Provider:TC Boles APRN, [place] Location:[facility] Appointment Type:URO Office Visit [facility] evaluation + Plan note Future Appointments Appointment Date:01/20/2024 11:30:00 AM Scheduled Provider:TC Boles APRN, [place] [facility] Location:[facility] Appointment Type:URO Office Visit [facility] evaluation + Plan note Future Appointments Appointment Date:04/06/2024 11:00:00 AM Scheduled Provider:Katia SAMUELS MD Location:[facility] Appointment Type:URO Procedure 15 min [facility] evaluation + Plan note Future Appointments Appointment Date:05/06/2024 12:30:00 PM Scheduled Provider:Fabi Antonio Location:[facility] Appointment Type:URO Office Visit Appointment Date:10/05/2024 02:00:00 PM Scheduled Provider:Katia SAMUELS MD Location:[facility] Appointment Type:URO Procedure [address] [facility] Evaluation + Plan note Future Appointments Appointment Date:05/06/2024 12:30:00 PM Scheduled Provider:Fabi Antonio [facility] [facility] Appointment Type:URO Office Visit Appointment Date:10/05/2024 02:00:00 PM Scheduled Provider:Katia SAMUELS MD Location:[facility] Appointment Type:URO Procedure 15 min Diagnostic Tests Pending * UroVysion Fish and Urine Cyto ([facility]) 04/06/24 [facility] evaluation + Plan note Future Appointments Appointment Date:06/29/2024 10:00:00 AM Scheduled Provider:HEATHER OMALLEY PA-C Location[facility] Appointment Type:URO Office Visit Appointment Date:10/05/2024 02:00:00 PM Scheduled Provider:Katia SAMUELS MD Location:[facility] Appointment Type:URO Procedure 15 min [facility] Evaluation + Plan note Future Appointments Appointment Date:08/12/2024 11:20:00 AM Scheduled Provider:HEATHER OMALLEY PA-C Location[facility] Appointment Type:URO Complex Office Visit Appointment Date:10/05/2024 02:00:00 PM Scheduled Provider:Katia SAMUELS MD Location:[facility] Appointment Type:URO Procedure 15 min [facility] Plan note Future Appointments Appointment Date:11/16/2024 02:00:00 PM Scheduled Provider:Katia SAMUELS MD Location:[facility] Appointment Type:URO Procedure 15 min [facility] evaluation + Plan note Future Appointments Appointment Date:12/14/2024 11:00:00 AM Scheduled Provider:Eboni Anderson PA-C Location[facility] Appointment Type:URO Office Visit [facility] Evaluation + Plan note Future Appointments Appointment Date:12/14/2024 11:00:00 AM Scheduled Provider:Eboni Anderson PA-C Location[facility] Appointment Type:URO Office Visit Diagnostic Tests Pending * UroVysion Fish and Urine Cyto ([facility]) 11/16/24 [facility] Evaluation + Plan note Future Appointments Appointment Date:01/12/2025 12:30:00 PM Scheduled Provider:Eboni Anderson PA-C Location[facility] Appointment Type:URO Office Visit [facility] evaluation + Plan note Future Appointments Appointment Date:02/10/2025 01:50:00 PM Scheduled Provider:TC Boles APRN, [place] X Location:[facility] Appointment Type:URO Office Visit [facility] evaluation + Plan note Future Appointments Appointment Date:03/10/2025 01:50:00 PM Scheduled Provider:TC Boles APRN, [place] Location:[facility] Appointment Type:URO Office Visit [facility] evaluation + Plan note Future Appointments Appointment Date:04/07/2025 11:00:00 AM Scheduled Provider:Orzech SKY LINE YARDER, SALES ACCOUNT SPECIALIST-C, [place] X Location:[facility] Appointment Type:URO Complex Office Visit [facility] evaluation note* Diagnosis Onset Date Resolution Status AAA (abdominal aortic aneurysm) acuteAcute kidney injuryacuteAcute metabolic encephalopathyacuteBilateral hydronephrosisacuteBladder massacuteDiarrheaacuteFolic acid deficiencyacute HyperkalemiaacuteMetabolic acidosisacutePre-operative cardiovascular examination, bradyarrhythmiaacute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acute SundowningacuteTIA (transient ischemic attack)acuteTobacco abuseacuteUTI (urinary tract infection)acuteVitamin B [address] [facility] Work Phone: Evaluation noteNo assessment information available [facility] Work Phone: evaluation noteNo InformationNort InfoHubble Other Evaluation note* Diagnosis Onset Date Resolution Status Status post endovascular aneurysm repair (EVAR) acuteAbdominal aortic aneurysm without ruptureacuteAnemiaacuteChronic kidney disease, stage 3bacuteHyperlipidemiaacuteHypertensive nephropathyacuteIron deficiencyacuteObstructive nephropathyacute [facility] Work Phone: Evaluation note* Diagnosis Onset Date Resolution Status Abdominal aortic aneurysm without ruptur e acuteAnemiaacuteChronic kidney disease, stage 3bacuteHyperlipidemiaacute Hypertensive nephropathyacuteIron deficiencyacuteObstructive nephropathyacute [facility] Work Phone: Evaluation note* Diagnosis Onset Date Resolution Status Abdominal aortic aneurysm without ruptur e acuteAtrial fibrillation, new onsetacuteChronic kidney disease, stage 3bacute Chronic systolic heart failureacuteDeliriumacuteHyperlipidemiaacuteHypertension acuteHypertensive nephropathyacuteHypotensionacuteImpaired mobility and activities of daily livingacuteIron deficiencyacuteIschemic cardiomyopathyacute Sleep-wake cycle disorderacuteST elevation myocardial infarction (STEMI) of anterior wallacuteStatus post endovascular aneurysm repair (EVAR)acuteStented coronary arteryacute [facility] Work Phone: Evaluation note* Diagnosis Onset [...] disease, stage 3bacuteHyperlipidemiaacute Hypertensive nephropathyacuteIron deficiencyacuteObstructive nephropathyacute [facility] Work Phone: Evaluation note* Diagnosis Paroxysmal atrial fibrillation (Multi) Atrial fibrillation documented in this encounter [facility] Work Phone: Evaluation note* Diagnosis Pneumonia of left lower lobe due to infectious organism- Primary Simple chronic bronchitis (CMS/HCC) Simple chronic bronchitis documented in this encounter [facility] HealthcareEvaluation note* Diagnosis Onset Date [...] 3bacuteHyperlipidemiaacute Hypertensive nephropathyacuteIron deficiencyacuteObstructive nephropathyacute Chest congestionnoneactive [facility] Work Phone: Evaluation note* Diagnosis Onset Date [...] deficiencyacuteObstructive nephropathyacute Chest congestionnoneactiveRight lower lobe pneumonianoneactive 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- Primary Paroxysmal atrial [...] health QT prolongation documented in this encounter [facility] Work Phone: Evaluation note* Diagnosis Simple chronic bronchitis (CMS/HCC) Simple chronic bronchitis documented in this encounter [facility] HealthcareEvaluation note* Diagnosis Paroxysmal atrial fibrillation (Multi) Atrial fibrillation High risk medication use 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 S/P PTCA (percutaneous [...] hazards to health documented in this encounter [facility] Work Phone: Evaluation note* Diagnosis Essential hypertension, benign (CMS/HCC) Essential hypertension, benign Hypertensive nephropathy (CMS/HCC) Unspecified hypertensive kidney disease with chronic kidney disease stage I through stage IV, or unspecified Stage 3a chronic kidney disease (HCC) (CMS/HCC) Microalbuminuria Proteinuria Panlobular emphysema (CMS/HCC) Other emphysema Simple chronic bronchitis (CMS/HCC) Simple chronic bronchitis Mixed dyslipidemia ([facility]) Polypharmacy Issue of repeat prescriptions Mixed conductive and sensorineural hearing loss of both ears Former smoker Personal history of tobacco use, presenting hazards to health Overweight documented in this encounter [facility] HealthcareEvaluation note* Diagnosis Encounter for Medicare annual wellness exam- Primary Advance directive discussed with patient Encounter for screening for other disorder Screening for alcohol problem Screening for alcoholism Former smoker Personal history of tobacco use, presenting hazards to health Overweight documented in this encounter [facility] HealthcareEvaluation note* Diagnosis Cardiomyopathy, ischemic- Primary Other specified forms of chronic ischemic heart disease 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 Paroxysmal atrial fibrillation (Multi) Atrial fibrillation High risk medication use S/P PTCA (percutaneous transluminal coronary angioplasty) Postsurgical percutaneous transluminal coronary angioplasty status ST elevation myocardial infarction (STEMI), unspecified artery (Multi) Infrarenal abdominal aortic aneurysm (AAA) without rupture ([facility]) Essential hypertension Unspecified essential hypertension Dyslipidemia Other and unspecified hyperlipidemia Stage 3a chronic kidney disease (Multi) Transient cerebral ischemia, unspecified type Hematuria, unspecified type Hyperthyroidism Thyrotoxicosis without mention of goiter or other cause, without mention of thyrotoxic crisis or storm BMI 26.0-26.9,adult Former smoker Personal history of tobacco use, presenting hazards to health documented in this encounter [facility] Work Phone: Evaluation note* Diagnosis ST elevation myocardial infarction (STEMI), unspecified artery (Multi) Cardiomyopathy, ischemic Other specified forms of chronic ischemic heart disease 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 S/P PTCA (percutaneous transluminal coronary angioplasty) Postsurgical percutaneous transluminal coronary angioplasty status documented in this encounter [facility] Work Phone: Evaluation note* Diagnosis Onset Date Resolution Status Admit Date Abdominal aortic aneurysm without ruptur e acuteMar 2024 10:25amAn[facility]acute[facility] 2024 10:25amCHF (congestive heart failure)acute[facility] 2024 10:25amChronic kidney disease, stage 3bacute August 11, 2024 10:25amHyperlipidemiaacuteMer[facility] Health [facility] 2024 10:25amHypertensive nephropathyacuteMer[facility] 2024 10:25amIron deficiencyacuteMercy Health [facility] 2024 10:25amObstructive nephropathyacuteMarch 2024 10:25am [facility] Work Phone: Evaluation note* Diagnosis Recurrent UTI- Primary Urinary tract infection, site not specified Need for prophylaxis against urinary tract infection documented in this encounter [facility] HealthcareEvaluation note* Diagnosis Cardiomyopathy, ischemic Other specified forms of chronic ischemic heart disease 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 S/P PTCA (percutaneous [...] health BMI 26.0-26.9,adult documented in this encounter [facility] Work Phone: Evaluation note* Diagnosis 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 disturbance, psychotic disturbance, mood disturbance, or anxiety (CMS/HCC) Hallucinations Need for prophylaxis against urinary tract infection Indwelling urinary catheter present Former smoker Personal history of tobacco use, presenting hazards to health Polypharmacy Issue of repeat prescriptions Overweight documented in this encounter [facility] HealthcareEvaluation note* Diagnosis Community acquired [...] metabolic encephalopathy [facility]* Diagnosis Cardiomyopathy, ischemic- Primary Other [...] Unspecified cardiac dysrhythmia documented in this encounter [facility] Work Phone: Evaluation note* Diagnosis Peripheral vascular disease (CMS/HCC)- Primary Unspecified peripheral vascular disease Presence of stent in artery Encounter for examination following treatment at hospital Pneumonia of left lower lobe due to infectious organism Lower extremity edema Edema Delirium due to another medical condition documented in this encounter [facility] HealthcareEvaluation note* Diagnosis Pneumonia of left lower lobe due to infectious organism Encounter for examination following treatment at hospital Lower extremity edema Edema Delirium due to another medical condition documented in this encounter [facility] HealthcareEvaluation note* Diagnosis Venous insufficiency of both lower extremities- Primary Venous stasis dermatitis of right lower extremity 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 disturbance, psychotic disturbance, mood disturbance, or anxiety ([facility]) documented in this encounter [facility] HealthcareEvaluation note* Diagnosis Onset Date Resolution Status Admit Date Abdominal aortic aneurysm without ruptur e acuteOctober 2024 2:22pmAnemiaacuteOctober 2024 2:22pmCHF (congestive heart failure)acuteOctober 2024 2:22pmChronic kidney disease, stage 3bacuteOctober 2024 2:22pmHyperlipidemiaacuteOctober 2024 2:22pmHypertensive nephropathyacuteOctober 2024 2:22pmHypokalemiaacute October 2024 2:22pmIron deficiencyacuteOctober 2024 2:22pm Obstructive nephropathyacuteOctober 2024 2:22pm [facility] Work Phone: Evaluation note* Diagnosis Paroxysmal atrial fibrillation (Multi) Atrial fibrillation High risk medication use Cardiomyopathy, ischemic Other specified forms of chronic ischemic heart disease 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 S/P PTCA (percutaneous [...] crisis or storm documented in this encounter [facility] Work Phone: History and physical note Author Willy Lambert [facility] January 14, 2024 8:46amNote Date/TimeAugust 2023 8:[place] [address] Gastroenterology H&P Signed Patient: Alex Anderson MR#: [id number] : 1945 Acct:[id number] Age/Sex: 78 / M Adm Date: 4 Loc: Room: Type: [facility] Attending Dr: Willy Lambert MD Copies to: [...] by Willy Lambert MD> 01/14/[address] [facility] Work Phone: Hishxrb general Narrative - Reported* Type Description Date Medical History ACUTE KIDNEY INJURY Medical HistoryOBSTRUCTIVE UROPATHYMedical HistoryPRE-OPERATIVE CARDIOVASCULAR EXAMINATION, BRADYARRHYTHMIAMedical HistoryBILATERAL HYDRONEPHROSISMedical HistoryBLADDER MASSMedical HistoryAAA (ABDOMINAL AORTIC ANEURYSM)Medical History TOBACCO ABUSEMedical HistoryDEMENTIAMedical HistorySUNDOWNINGMedical History VITAMIN B 12 DEFICIENCYMedical HistoryFOLIC ACID DEFICIENCYSurgical History KIDNEY STONE REMOVEDHospitalization HistoryACUTE KIDNEY INJURY, 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, BLADDER MASS05/16/22 [employer] Other Hisofmj general Narrative - Reported* Type Description Date Medical History ACUTE KIDNEY INJURY Medical HistoryOBSTRUCTIVE UROPATHYMedical HistoryPRE-OPERATIVE CARDIOVASCULAR EXAMINATION, BRADYARRHYTHMIAMedical HistoryBILATERAL HYDRONEPHROSISMedical HistoryBLADDER MASSMedical HistoryAAA (ABDOMINAL AORTIC ANEURYSM)Medical History TOBACCO ABUSEMedical HistoryDEMENTIAMedical HistorySUNDOWNINGMedical History VITAMIN B 12 DEFICIENCYMedical HistoryFOLIC ACID DEFICIENCYSurgical History KIDNEY STONE REMOVEDSurgical HistoryEVARHospitalization HistoryACUTE KIDNEY INJURY, 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, BLADDER MASS05/16/22 [employer] Other Hisaeqo general Narrative - Reported* Type Description Date Medical History ACUTE KIDNEY INJURY Medical HistoryOBSTRUCTIVE UROPATHYMedical HistoryPRE-OPERATIVE CARDIOVASCULAR EXAMINATION, BRADYARRHYTHMIAMedical HistoryBILATERAL HYDRONEPHROSISMedical HistoryBLADDER MASSMedical HistoryAAA (ABDOMINAL AORTIC ANEURYSM)Medical History TOBACCO ABUSEMedical HistoryDEMENTIAMedical HistorySUNDOWNINGMedical History VITAMIN B 12 DEFICIENCYMedical HistoryFOLIC ACID DEFICIENCYSurgical History KIDNEY STONE REMOVEDSurgical HistoryEVARSurgical HistoryTURBT, CYSTOSCOPY 09/12/2022Surgical HistoryCYSTOSCOPY07/30/2022Surgical HistorySTENT OVER AORTIC ANEURYSM06/2022Hospitalization HistoryACUTE KIDNEY INJURY, 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, BLADDER MASS05/16/22Hospitalization HistorySEE ABOVE [employer] Other Hospital Discharge instructions No data available for this section [facility] Progress note No data available for this section [facility] reason for referral (narrative)* Consultation (Routine) - AuthorizedSpecialtyDiagnoses / ProceduresReferred By ContactReferred To ContactCardiac Rehabilitation Diagnoses 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 S/P PTCA (percutaneous transluminal coronary angioplasty) ST elevation myocardial infarction (STEMI), unspecified artery (Multi) Teo Al MD [address] [address], [place] [id number] Referral [facility]StatusReL[facility] DateExpiration DateVisits RequestedVisits [id number] Specialty Services Required / Scheduling Instructions [place] * PFT (Routine) - AuthorizedSpecialtyDiagnoses / ProceduresReferred By Contact Referred To Contact Diagnoses Paroxysmal atrial fibrillation (Multi) High risk medication use Procedures Complete Pulmonary Function Test (Spirometry/DLCO/Lung Volumes) Teo Al MD 3 [facility] 2, [address] [address] Referral IDStatusReasonFoster DateExpiration DateVisits RequestedVisits [id number]/[id number] * Imaging (Routine) - AuthorizedSpecialtyDiagnoses / ProceduresReferred By ContactReferred To ContactRadiology Diagnoses Paroxysmal atrial fibrillation (Multi) High risk medication use Procedures XR chest 2 views Teo Al MD [address], [place] [address] [place] [address] Referral IDStatusReasonStart DateExpiration DateVisits RequestedVisits [id number] Perform Procedure * Consultation (Routine) - AuthorizedSpecialtyDiagnoses / ProceduresReferred By ContactReferred To ContactCardiology Diagnoses Paroxysmal atrial fibrillation (Multi) Procedures Follow Up In Cardiology Teo Al MD [address], [place] [address] [place] [address] Teo Al MD [address], [place] [address] [place] [address] Referral IDStatusReasonStart DateExpiration DateVisits RequestedVisits [id number]/17/20249/17/202511 * Cardiovascular (Routine) - AuthorizedSpecialtyDiagnoses / ProceduresReferred By ContactReferred To Contact Diagnoses Paroxysmal atrial fibrillation (Multi) Procedures ECG 12 Lead Teo Al MD [address], [place] [address] [place], [place] [phone] Referral IDStatusReasonStart DateExpiration DateVisits RequestedVisits [id number]/17/20249/17/202511 * Cardiovascular (Routine) - AuthorizedSpecialtyDiagnoses / ProceduresReferred By ContactReferred To Contact Diagnoses Paroxysmal atrial fibrillation (Multi) Procedures ECG 12 Lead Teo Al MD [address] [facility] [address], [address] [address] Referral IDStatusReasonStart DateExpiration DateVisits RequestedVisits [id number]/17/20249/ [facility] Work Phone: Reason for referral (narrative)No reason for referral information availableCoshocton [facility] Work Phone: Reason for visit Narrative* CV Imaging (Routine) - AuthorizedSpecialtyDiagnoses / ProceduresReferred By ContactReferred To ContactCardiology Diagnoses ST elevation myocardial infarction (STEMI), unspecified artery (Multi) Cardiomyopathy, ischemic 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 S/P PTCA (percutaneous transluminal coronary angioplasty) Procedures Transthoracic Echo Limited OK ECHO TRANSTHORC R-T 2D W/WO M-MODE REC F-UP/LMTD OK DOPPLER ECHO COLOR FLOW VELOCITY MAPPING [place] DOPPLER ECHO PULSE WAVE W/SPECTRAL F-UP/LMTD STD Teo Al MD [address] [place] [address] [address], [address] [address] Phone: tel: fax: Referral IDStatusRemalouStwinthrop DateExpiration DateVisits RequestedVisits [id number] Perform Procedure [facility] Work Phone: Summary Purpose Family History [...] Agent Relationship John MonicaSpousePrimary Decision Maker* Antonio AndesronChildSecondary Decision Maker* Lindy AndersonChildSecondary Decision Maker* TypeDate RecordedPatient RepresentativeExplanationPower of Bvovyeqg86/4/2025 10:55 AM Chief Complaint and Reason for [...] infection) Vitamin B 12 deficiency Chief Complaint talno I71.4 AAA AAA n32.89 n28.9 n13.4 n17.9 [...] I71.4 1 YR F/U AAA; [facility] Chief Complaint I71.4 1 YR F/U AAA; [facility] RENAL 6 month f/uReason for VisitStatus post [...] section and content) DATE CREATED AUTHOR 05/12/2021 [facility] [employer] DATE CREATED AUTHOR AUTHOR'S ORGANIZ ATION 09/23/2022 [facility] DATE CREATED AUTHOR AUTHOR'S ORGANIZ ATION 01/23/2023 [facility] DATE CREATED AUTHOR AUTHOR'S ORGANIZ ATION 01/23/2023 [employer] DATE CREATED AUTHOR AUTHOR'S ORGANIZ ATION 08/03/2024 [facility] DATE CREATED AUTHOR AUTHOR'S ORGANIZ ATION 08/14/2024 [facility] DATE CREATED AUTHOR AUTHOR'S ORGANIZ ATION 10/07/2024 [facility] DATE CREATED AUTHOR AUTHOR'S ORGANIZ ATION 10/08/2024 [facility] DATE CREATED AUTHOR AUTHOR'S ORGANIZ ATION 10/12/2024 [facility] DATE CREATED AUTHOR AUTHOR'S ORGANIZ ATION 11/10/2024 [facility] DATE CREATED AUTHOR AUTHOR'S ORGANIZ ATION 11/12/2024 [facility] DATE CREATED AUTHOR AUTHOR'S ORGANIZ ATION 11/17/2024 [facility] DATE CREATED AUTHOR AUTHOR'S ORGANIZ ATION 12/15/2024 [facility] DATE CREATED AUTHOR AUTHOR'S ORGANIZ ATION 03/30/2025 [facility] DATE CREATED AUTHOR AUTHOR'S ORGANIZ ATION 04/04/2025 [facility] DATE CREATED AUTHOR AUTHOR'S ORGANIZ ATION 04/05/2025 [facility] Patient Care team informatio n (unrecognized [...] January 16, 2024 End: January 22ayah Hernandez MECHANICAL ENGINEERING DRAFTSPERSON-COther ProviderActiveStart: January 16, 2024 End: January 22dsusi [...] ProviderActiveStart: January 16, 2024 End: January 22lorenzo Silvermna MDOther ProviderActiveStart: January 16, 2024 End: January 23, 2024Sagregory Moore RNOther ProviderActiveStart: January 16, 2024 End: January 23, 2024 Team Status: Active Member Role Status Dates Stanley Emerson MD Primary Care Provider Active Start: January 16, 2024 Nas Pruett DOOther ProviderActiveStart: January 16, 2024 Dora Prado , SKY LINE YARDER ACNP-BCOther ProviderActiveStart: January 16, 2024 Isaac Edwards [...] ProviderActiveStart: January 23, 2024 Vidya Hernandez , MECHANICAL ENGINEERING DRAFTSPERSON-COther ProviderActiveStart: January 23, 2024 Valdo Sandra , [...] ProviderActiveStart: January 23, 2024 Vidya Hernandez , MECHANICAL ENGINEERING DRAFTSPERSON-COther ProviderActiveStart: January 23, 2024 Valdo Sandra , [...] 2024Team MemberRelationshipSpecialtyStart DateEnd Date Stanley Emerson MD [address] [address] PCP - Zyqnebm49/23/22Team MemberRelationshipSpecialtyStart DateEnd Date Stanley Emerson MD [address] [place] [address] PCP - ACO [facility]10/17/22 Stanley Emerson MD [facility] [place] [address] PCP - GeneralFamily Medicine11/20/22 Dora Santiago LPN Licensed Practical NurseFamily Medicine12/22/23Team MemberRelationshipSpecialty Start DateEnd Date Stanley Emerson MD [address] [facility] [place] [address] PCP - ACO [place]10/17/22 Stanley Emerson MD [address] [place] [address] PCP - GeneralFamily Medicine11/20/22 Dora Santiago LPN [facility]Mel[facility]12/22/23 Team Status: Inactive Member Role [...] Date Stanley Emerson MD [address] [place] [address] (Fax) PCP - ACO [place]10/17/22 Stanley Emerson MD [address] [place] [phone] PCP - GeneralFamily Medicine11/20/22 Dora Santiago LPN Licensed Practical NurseFamily Medicine12/22/23Team MemberRelationshipSpecialty Start DateEnd Date Stnaley Emerson MD [address] [address] (Fax) PCP - [facility]10/17/22 Stanley Emerson MD [address] [address] (Fax) PCP - GeneralFamily Medicine11/20/22 Dora Santiago LPN Licensed Practical NurseFamily Medicine12/22/23Team MemberRelationshipSpecialty Start DateEnd Date Stanley Emerson MD [address] [place] [address] (Fax) PCP - [facility]10/17/22 Stanley Emerson MD [address] [place] [address] (Fax) PCP - GeneralFamily Medicine11/20/22 Dora Santiago LPN Licensed Practical NurseFamily Medicine12/22/23Team MemberRelationshipSpecialty Start DateEnd Date Stanley Emerson MD [address] [place] [address] (Fax) PCP - [facility]10/17/22 Stanley Emerson MD [address] [place] [address] (Fax) PCP - GeneralFamily Medicine11/20/22 Dora Santiago LPN Licensed Practical NurseFamily Medicine12/22/23Team MemberRelationshipSpecialty Start DateEnd Date Stanley Emerson MD [address] [place] [address] (Fax) PCP - [facility]10/17/22 Stanley Emerson MD [address] [place] [address] (Fax) PCP - GeneralFamily Medicine11/20/22 Dora Santiago LPN Licensed Practical NurseFamily Medicine12/22/23Team MemberRelationshipSpecialty Start DateEnd Date Stanley Emerson MD [address] [place] [address] PCP - [id number]/23/22Team MemberRelationshipSpecialtyStart DateEnd Date Stanley Emerson MD [address] [place] [address] (Fax) PCP - [facility]10/17/22 Stanley Emerson MD [address] [place] [address] (Fax) PCP - GeneralFamily Medicine11/20/22 Dora Santiago LPN Licensed Practical NurseFamily Medicine12/22/23Team MemberRelationshipSpecialty Start DateEnd Date Stanley Emerson MD [address] [place] [address] (Fax) PCP - [facility]10/17/22 Stanley Emerson MD [address] [place] [address] (Fax) PCP - GeneralFamily Medicine11/20/22 Dora Santiago LPN Licensed Practical Nursemily Medicine12/22/23Team MemberRelationshipSpecialty Start DateEnd Date Stanley Emerson MD [address] [place] [address] PCP - Msxfsml64/23/22Team MemberRelationshipSpecialtyStart DateEnd Date Stanley Emerson MD [address] [place] [address] (Fax) PCP - [facility]10/17/22 Stanley Emerson MD [address] [place] [address] (Fax) PCP - GeneralFamily Medicine11/20/22 Dora Santiago LPN Licensed Practical NurseFamily Medicine12/22/23Team MemberRelationshipSpecialty Start DateEnd Date Stanley Emerson MD [address] [place] [address] (Fax) PCP - [facility]10/17/22 Stanley Emerson MD [address] [place] [address] (Fax) PCP - GeneralFamily Medicine11/20/22 Dora Santiago LPN Licensed Practical NurseFamily Medicine12/22/23Team MemberRelationshipSpecialty Start DateEnd Date Stanley Emerson MD [address] [place] [address] (Fax) PCP - [facility]10/17/22 Stanley Emerson MD [address] [place] [address] (Fax) PCP - GeneralFamily Medicine11/20/22 Dora Santiago LPN Licensed Practical NurseFamily Medicine12/22/23Team MemberRelationshipSpecialty Start DateEnd Date Stanley Emerson MD [address] [place] [address] (Fax) PCP - [facility]10/17/22 Stanley Emerson MD [address] [place] [address] (Fax) [facility]/20/22 Dora Santiago LPN [facility] Medicine12/22/23Team MemberRelationshipSpecialty Start DateEnd Date Stanley Emerson MD [address] [place] [address] PCP - Heagiqf97/23/22Team MemberRelationshipSpecialtyStart DateEnd Date Stanley Emerson MD [address] [place] [address] PCP - Dfecyzz07/23/22 Team Status: Inactive Member Role Status Dates Stanley Emerson MD Primary Care Provider Active Start: May 21, 2024 End: May 21, 2024Teo Al MDAttclara ProviderActiveStart: May 21, 2024 End: May 21, 2024Team MemberRelationshipSpecialtyStart DateEnd Date Stanley Emerson MD [address] [place] [address] (Fax) PCP - [facility]10/17/22 Stanley Emerson MD [address] [place] [address] (Fax) PCP - [facility] Medicine11/20/22 Joi Zhang LPN 08/26/24Team MemberRelationshipSpecialtyStart DateEnd Date Stanley Emerson MD [address] [place] [address] (Fax) PCP - [facility]10/17/22 Stanley Emerson MD [address] [place] [address] (Fax) PCP - GeneralFamily Medicine11/20/22 Dora Santiago LPN Licensed Practical NurseFamily Medicine Joi Zhang LPN 08/26/24Team MemberRelationshipSpecialtyStart DateEnd Date Stanley Emerson MD [facility] [address] [place] [address] PCP - Tcmnjko41/23/22Team MemberRelationshipSpecialtyStart DateEnd Date Stanley Emerson MD [address] [place] [address] (Fax) PCP - [facility]10/17/22 Stanley Emerson MD [address] [place] [address] (Fax) PCP - GeneralFamily Medicine11/20/22 Joi Zhang LPN 08/26/24Team MemberRelationshipSpecialtyStart DateEnd Date Stanley Emerson MD [address] [place] [address] (Fax) PCP - [facility]10/17/22 Stanley Emerson MD [address] [place] [address] (Fax) PCP - Generalmily Medicine11/20/22 Joi Zhang LPN 08/26/24Team MemberRelationshipSpecialtyStart DateEnd Date Stanley Emerson MD [address] [place] [address] (Fax) PCP - [facility]10/17/22 Stanley Emerson MD [address] [facility] [address] [place] [address] (Fax) PCP - GeneralFamily Medicine11/20/22 Joi Zhang LPN 08/26/24Team MemberRelationshipSpecialtyStart DateEnd Date Stanley Emerson MD [address] [place] [address] (Fax) PCP - General10/02/24Team MemberRelationshipSpecialtyStart DateEnd Date Stanlye Emerson MD [address] [place] [address] (Fax) PCP - General10/02/24Team MemberRelationshipSpecialtyStart DateEnd Date Stanley Emerson MD [address] [place] [address] PCP - Tztwrof55/23/22 Ruby Montana MD [address] [facility] [address] [place] [address] CardiologistElectrophysiology10/04/24Team MemberRelationshipSpecialtyStart Date End Date Stanley Emerson MD [address] [facility] [place] [address] (Fax) PCP - [facility]10/17/22 Stanley Emerson MD [address] [facility] [address] [place] [address] (Fax) PCP - GeneralFamily Medicine11/20/22 Joi Zhang LPN 08/26/24Team MemberRelationshipSpecialtyStart DateEnd Date Stanley Emerson MD [address] [place] [address] (Fax) PCP - [facility]10/17/22 Stanley Emerson MD [address] [place] [address] (Fax) PCP - GeneralFamily Medicine11/20/22 Joi Zhang LPN 08/26/24Team MemberRelationshipSpecialtyStart DateEnd Date Stanley Emerson MD [address] [place] [address] (Fax) PCP - [facility]10/17/22 Stanley Emerson MD [address] [place] [address] (Fax) PCP - GeneralFamily Medicine11/20/22 Joi Zhang LPN [address] [place] [address] 08/26/24Team MemberRelationshipSpecialtyStart DateEnd Date Stanley Emerson MD [address] [place] [address] (Fax) PCP - [facility]10/17/22 Stanley Emerson MD [address] [place] [address] (Fax) PCP - GeneralFamily Medicine11/20/22 Joi Zhang LPN [address] [place] [address] 08/26/24Team MemberRelationshipSpecialtyStart DateEnd Date Stanley Emerson MD [address] [place] [address] (Fax) PCP - [facility] Re[facility]10/17/22 Stanley Emerson MD [address] [place] [address] (Fax) PCP - GeneralFamily Medicine11/20/22 Joi Zhang LPN [address] [place] [address] 08/26/24Team MemberRelationshipSpecialtyStart DateEnd Date Stanley Emerson MD [address] [place] [address] (Fax) PCP - [facility]10/17/22 Stanley Emerson MD [address] [place] [address] (Fax) PCP - GeneralFamily Medicine11/20/22 Dora Santiago LPN [address] [place] [address] Licensed Practical Nursemily Medicine Joi Zhang LPN [address] [place] [address] 08/26/24Team MemberRelationshipSpecialtyStart DateEnd Date Stanley Emerson MD [address] [place] [address] (Fax) PCP - [facility]10/17/22 Stanley Emerson MD [address] [place] [address] (Fax) PCP - GeneralFamily Medicine11/20/22 Dora Santiago LPN [address] [place] [address] Licensed Practical NurseFamily Medicine Joi Zhang LPN [address] [place] [address] 08/26/24Team MemberRelationshipSpecialtyStart DateEnd Date Stanley Emerson MD [address] [place] [address] [place] [address] (Fax) PCP - [facility]10/17/22 Stanley Emerson MD [address] [place] [address] (Fax) PCP - GeneralFamily Medicine11/20/22 Dora Santiago LPN [address] [place] [address] Licensed Practical NurseFamily Medicine Christina Goddard LPN Licensed Practical NurseFamily Medicine/06/18 Joi Zhang LPN [address] [facility] [address] [place] [address] 08/26/24Team MemberRelationshipSpecialtyStart DateEnd Date Stanley Emerson MD [address] [facility] [address] [place] [address] (Fax) PCP - [facility] Re[facility]10/17/22 Stanley Emerson MD [address] [facility] [address] [place] [address] (Fax) PCP - GeneralFamily Medicine11/20/22 ZhangJoi, [employer] [address] [place] [address] 08/26/24Team MemberRelationshipSpecialtyStart DateEnd Date Stanley Emerson MD [address] [place] [address] PCP - Yvhqjaz39/23/22 Ruby Montana MD [address] [facility], [address] [place], [place] [address] CardiologistElectrophysiology10/04/24 REASON FOR VISIT (unrecogniz ed section and content) ReasonCommentsekg visitSpecialtyDiagnoses / ProceduresReferred By Contact Referred To Contact Diagnoses Paroxysmal atrial fibrillation (Multi) Procedures ECG 12 Lead Teo Al MD [address] [facility] [address], [address] [place] [address] Referral IDStatusReasonStart DateExpiration DateVisits RequestedVisits [id number]/17/20249/[id number]edUaduojzt Hospital [facility] pecialtyDiagnoses / ProceduresReferred By Contact Referred To Contact Diagnoses Paroxysmal atrial fibrillation (Multi) Procedures ECG 12 Lead Teo Al MD [address] [facility] [address], [address] [place] [address] Referral IDStatusReasonStart DateExpiration DateVisits RequestedVisits [id number]/17/20249/[id number] RefillReason CommentsFollow-tp6mIyhzbiaizHpjfpqfpi / ProceduresReferred By ContactReferred To ContactCardiology Diagnoses Paroxysmal atrial fibrillation (Multi) Procedures Follow Up In Cardiology Teo Al MD [address] [facility] [address], [place] [id number] Phone: tel: fax: Teo Al MD [address] [place] [address] 2, [place] [phone] Phone: tel: fax: Referral IDStatusReasonStart DateExpiration DateVisits RequestedVisits [id number]/17/20249/[id number] Exam SpecialtyDiagnoses / ProceduresReferred By ContactReferred To ContactCardiology Diagnoses Cardiomyopathy, ischemic Procedures Follow Up In Cardiology Teo Al MD [address] [place] [address] 2, [place] [address] Phone: tel: fax: Teo Al MD [address] [place] [address] 2, [place] [address] Phone: tel: fax: Referral IDStatusReasonStwinthrop DateExpiration DateVisits RequestedVisits [id number]/27/202412/[id number]-oh1 month follow up abnormal testingSpecialtyDiagnoses / ProceduresReferred By Contact Referred To Contact Diagnoses Paroxysmal atrial fibrillation (Multi) Procedures ECG 12 Lead Teo Al MD [address] [place] [address] 2, [place] [id number] Phone: tel: fax: Referral IDStatusKeylaasonFoster DateExpiration DateVisits RequestedVisits [id number]/18/20254/[id number]srokho ReasonCommentsNew Patient VisitPatient is present to establish care . Patient was referred by cardiology for Paroxysmal atrial fibrillation.SpecialtyDiagnoses / ProceduresReferred By ContactReferred To ContactCardiology Diagnoses Cardiomyopathy, ischemic Teo Al MD [address] [facility] 2, [facility] [address] [place] [address] Phone: tel: fax: Ruby Montana MD [address] [facility], [address] [place] [address] Phone: tel: fax: Referral [facility]Status[facility] DateExpiration DateVisits RequestedVisits [id number] Specialty Services Required [id number] months follow-up Cardiomyopathy, ischemicSpecialtyDiagnoses / ProceduresReferred By ContactReferred To Contact Cardiology Diagnoses Cardiomyopathy, ischemic Procedures Follow Up In Cardiology Teo Al MD [address] [facility] [address], [address] [address] Phone: tel: fax: Teo Al MD [address] [facility] [address], [address] [address] Phone: tel: fax: Referral IDStaEfrainFoster DateExpiration DateVisits RequestedVisits [id number]/6/20253/ Goals (unrecognized section and content) Goals may [...] sodium chloride 0.9 % 250 mL IVPB (Ekro9Oua) (COMPLETED) 500 mg, IntraVENous, EVERY 24 HOURS, 2 doses, First dose on 10/02/24 at 1200, Last dose on 10/03/24 at 1200, Antimicrobial Indications: Pneumonia (CAP), CAP duration of therapy: 3 days, Use 20mm (Blue) Qxpa4Lqt Adapter Preparation instructions: Attach medication vial to one 20mm (Blue) [id number] adapter. James fluid bag with adapter, mix, [...] 0836 (Given - Provider: Coco Mirza, ROCIO) QUEtiapine (SEROQUEL) tablet 25 mg 25 [...] BE BASED ON THE PRIMARY CLINICAL RECORDS. [employer] provides no warranty or guarantee of the accuracy or completeness of information in this document.
--- NOTE | 2025-04-18 05:35 | PC.NURSE ---
[facility] contacted. Awaiting call back from the hospitalist. Parts Sales Associate first did a bladder scan while the #16 FR coude cath was in. There was a 30 ml amount of clear pink drainage in the leg bag. Pt stated that he has not emptied this since this AM. The scan showed greater than 522 ml in bladder. Parts Sales Associate attempted to irrigate cath with tomey syringe and sterile NS using sterile technique. This was done with NMT 300 ml of fluid since there already is 522 ml in the bladder. 200 ml returned. The return was pale yellow in color. This ceased to drain and principal technical writer then readjusted the balloon. Still no drainage. Attempted to gently irrigate the cath again-unable to instill any fluid. Cath then removed. It is full of sticky red clots. Staff then attempted to pass a #16 Fr coude x 2 using a different coude each time. Each time the coude was passed, it came back out full of sticky red clots. Staff x 2 members did try, and were also unsuccessful on the second try. Unable to pass cath through the prostate.
[2025-04-18 06:25] VITALS: BP 116/63; PULSE 72; TEMP 36.9; O2SAT 98
--- NOTE | 2025-04-18 06:44 | PC.NURSE ---
Report called to [facility]. Herlinda CHAN took report.
[2025-04-18 07:32] VITALS: BP 118/78; PULSE 62; TEMP 36.8; O2SAT 97
== END 2025-04-18 07:45 | disposition short-term general hospital (02) ==
PROVIDERS: Emergency Provider Emergency Medicine; PCP Family Medicine
DX: T83.098A Other mechanical complication of other urinary catheter, initial encounter (principal); R33.9 Retention of urine, unspecified; Z79.02 Long term (current) use of antithrombotics/antiplatelets; F17.200 Nicotine dependence, unspecified, uncomplicated
CPT/HCPCS: 99285

== ENCOUNTER 2025-04-25 09:52 | Outpatient (RCR) | payer MEDICARE, OTHER, SELFPAY | END 2025-05-25 12:38 | disposition home or self-care (01) | LOC: MM 09:52 | PROVIDERS: PCP Family Medicine; Visit Provider Internal Medicine | DX: Z51.81 Encounter for therapeutic drug level monitoring (principal); Z79.01 Long term (current) use of anticoagulants; I48.91 Unspecified atrial fibrillation | CPT/HCPCS: 85610; G0463 ==